=== PATIENT | female | born 1945 | race Caucasian/White ===

== ENCOUNTER 2019-04-06 15:33 | Outpatient (CLI) | payer OTHER, SELFPAY ==
--- NOTE | ~2019-04-06 | MR_ITS ---
EXAMINATION: MR brain/brain stem wo con DATE: 04/06/2019 17:11 INDICATION: Dizziness. TECHNIQUE: Magnetic resonance imaging (MRI) of the brain and brainstem was performed without intraven ous contrast. Sequences included sagittal and axial T1-weighted SE, axial diffusion-weighted FS SE, a xial T2*-weighted GRE, axial T2-weighted FLAIR Propeller, and axial T2-weighted Propeller. Apparent d iffusion coefficient (ADC) maps were created. COMPARISON: MR dated 06/05/[address] brain dated 09/10/2016. FINDINGS: Generalized atrophy. There are scattered mild periventricular and subcortical white matter changes, most likely related to small vessel ischemic disease (microangiopathy). Chronic small focal infarcts of the cerebellum bilaterally. No evidence for acute infarction or intracranial hemorrhage. Midline sagittal images are unremarkable. No ventriculomegaly or midline shift. Orbits are symmetric without disconjugate gaze. Paranasal sinuses are unremarkable. IMPRESSION: 1. No acute intracranial abnormality. 2: Focal chronic bilateral cerebellar infarctions. 3: Chronic age-related findings. Reviewed, dictated and finalized at location A. 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
== END 2019-04-06 15:34 | disposition home or self-care (01) ==
DX: R42 Dizziness and giddiness (principal); I63.89 Other cerebral infarction
CPT/HCPCS: 70551

== ENCOUNTER 2019-12-06 10:24 | Outpatient (CLI) | payer OTHER, SELFPAY ==
[2019-12-06 11:12] LABS: Basophils Absolute Auto 0.1 K/mm3 (0.0-0.1); Basophils Percent Auto 1.5 % (0.2-1.2); Eosinophils Absolute Auto 0.1 K/mm3 (0-0.3); Eosinophils Percent Auto 2.3 % (0-4.4); Hematocrit 38.6 % (37.0-47.0); Hemoglobin 12.3 g/dL (12.0-15.0); Immature Granulocyte Absolute 0.01 K/mm3 (0.00-0.031); Immature Granulocyte Percent A 0.2 % (0-0.5); Lymphocytes Absolute Auto 0.97 K/mm3 (0.9-3.2); Lymphocytes Percent Auto 18.5 % (18.3-44.2); Mean Corpuscular HGB Conc 31.9 g/dl (32-36); Mean Corpuscular Hemoglobin 32.1 pg (26-34); Mean Corpuscular Volume 100.8 fl (80-100); Mean Platelet Volume 12.2 fl (7.4-10.4); Monocytes Absolute Auto 0.5 K/mm3 (0.1-0.6); Monocytes Percent Auto 10.1 % (2.6-8.5); Neutrophils Absolute Auto 3.5 K/mm3 (1.3-6.7); Neutrophils Percent Auto 67.4 % (45.5-73.1); Platelet Count Result 259 k/mm3 (150-375); Red Blood Count 3.83 M/mm3 (4.2-5.4); Red Cell Distribution Width 12.9 % (11.5-14.5); White Blood Count 5.3 K/mm3 (4.5-10.0)
[2019-12-06 11:23] LABS: INR 1.8; Prothrombin Time 20.4 Seconds (11.1-14.7)
[2019-12-06 11:24] LABS: Add Urine Microscopic? YES; Appearance Urine Clear (Clear); Bilirubin Urine Negative (Negative); Blood Urine Negative (Negative); Color Urine Straw (Yellow); Glucose Urine UA Negative (Negative); Ketones Urine Negative (Negative); Leukocyte Esterase Ur 2+ LEU/UL (NEGATIVE); Mucus Urine Rare /lpf; Nitrate Urine Negative (Negative); Partial Thromboplastin Time 46.8 SECONDS (22.3-36.8); Protein Urine Negative (Negative); RBC Urine 0-2 /hpf (0-2); Squamous Epithelial Cell Urine Occasional /hpf (Few); Transitional Epi Cells Urine Rare /hpf (None Seen); Urobilinogen Urine Negative mg/dL (<2.0)
[2019-12-06 11:31] LABS: Alanine Aminotransferase 21 U/L (4-35); Albumin Level 4.2 g/dL (3.5-5.1); Alkaline Phosphatase 80 U/L (38-126); Anion Gap 5 mmol/L (8-16); Aspartate Amino Transferase 33 U/L (14-36); Bilirubin,Total 0.3 mg/dL (0.2-1.3); Blood Urea Nitrogen 33 mg/dL (7-17); Calcium 11.1 mg/dL (8.4-10.2); Carbon Dioxide 37 mmol/L (22-30); Chloride 100 mmol/L (98-107); Cholesterol 245 mg/dL (0-200); Estimated Glomerular Filt Rate 31; Glucose 134 mg/dL (65-105); HDL Direct 84 mg/dL; Magnesium 2.5 mg/dL (1.6-2.3); Potassium 4.8 mmol/L (3.4-5.0); Sodium 142 mmol/L (137-145); Triglycerides 144 mg/dL (<150)
[2019-12-06 11:32] LABS: Hemoglobin A1C 6.3 % (<5.7)
[2019-12-06 11:43] LABS: LDL Cholesterol Direct 104 mg/dL
[2019-12-09 23:03] LABS: Vitamin D 1,25 (OH)2 Total 28 pg/mL (18-72); Vitamin D2 1,25 (OH)2 <8 pg/mL; Vitamin D3 1,25 (OH)2 28 pg/mL
== END 2019-12-06 10:25 | disposition home or self-care (01) ==
LOC: ANHLAB 10:28
DX: I11.0 Hypertensive heart disease with heart failure (principal); E78.5 Hyperlipidemia, unspecified; E11.69 Type 2 diabetes mellitus with other specified complication; E55.9 Vitamin D deficiency, unspecified; Z79.01 Long term (current) use of anticoagulants; N28.9 Disorder of kidney and ureter, unspecified
CPT/HCPCS: 36415; 80053; 80061; 81001; 82652; 83036; 83735; 84443; 85025; 85610; 85730

== ENCOUNTER 2019-12-26 12:53 | Outpatient (CLI) | payer OTHER, SELFPAY | END 2019-12-26 12:54 | disposition home or self-care (01) | LOC: ANHAUDIO 12:54 | DX: H90.3 Sensorineural hearing loss, bilateral (principal) | CPT/HCPCS: 92557; 92567 ==

== ENCOUNTER 2020-01-12 10:25 | Outpatient (CLI) | payer OTHER, SELFPAY ==
--- NOTE | ~2020-01-12 | XR_ITS ---
EXAMINATION: XR chest 2V EXAM DATE: 01/12/2020 11:25 INDICATION: Dyspnea x 1 month . TECHNIQUE: Frontal and lateral projections of the chest obtained and reviewed. Comparison is made to prior examination from 01/09/2019. FINDINGS: Sternotomy wires are present without findings to suggest sternal dehiscence. The lungs are clear. There are no pleural effusions. The cardiomediastinal silhouette is within normal limits. C ardiac valve replacement. There is no pneumothorax suspected. There are mild bony degenerative yan es. There is aortic arteriosclerosis. There is moderate to severe anterior wedging of a single mid t horacic vertebral body, unchanged. IMPRESSION: No acute cardiopulmonary findings. Reviewed, dictated and finalized at location B. 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
== END 2020-01-12 10:26 | disposition home or self-care (01) ==
PROVIDERS: Visit Provider Internal Medicine Cardiovascular Disease
DX: Z91.89 Other specified personal risk factors, not elsewhere classified (principal); Z79.899 Other long term (current) drug therapy
CPT/HCPCS: 36415; 71046; 84443

== ENCOUNTER 2020-01-27 11:55 | Outpatient (CLI) | payer OTHER, SELFPAY ==
[2020-01-27 12:42] LABS: INR 2.2
== END 2020-01-27 11:56 | disposition home or self-care (01) ==
LOC: ANHLAB 11:59
DX: Z79.01 Long term (current) use of anticoagulants (principal)
CPT/HCPCS: 36415; 85610

== ENCOUNTER 2020-02-17 14:44 | Outpatient (CLI) | payer OTHER, SELFPAY ==
--- NOTE | 2020-02-24 12:34 | WPDPFTINT ---
PFT Interpretation PFT Interpretation: This PFT met all criteria for ATS standards and reproducibility FEV/FVC 70% FEV1 81% FVC 81% No bronchodilator challenge was given TLC 136% RV 216% RV/TLC 66% DLCO 69% when adjusted for alveolar volume but not adjusted for hemoglobin Flow volume loops showed some expiratory coving Impression: Mild airflow obstruction with hyperinflation, air trapping and mildly decreased diffusion capacity. This pattern is suggestive of COPD. Clinical correlation is advised.
== END 2020-02-17 14:45 | disposition home or self-care (01) ==
PROVIDERS: Visit Provider Internal Medicine Cardiovascular Disease
DX: R06.00 Dyspnea, unspecified (principal); Z91.89 Other specified personal risk factors, not elsewhere classified; Z79.899 Other long term (current) drug therapy
CPT/HCPCS: 94375; 94726; 94729

== ENCOUNTER 2020-02-27 14:52 | Outpatient (CLI) | payer OTHER, SELFPAY ==
--- NOTE | ~2020-02-27 | XR_ITS ---
[[id number] ] INDICATION: Right rib pain TECHNIQUE: Frontal projection of the upper right ribs, frontal projection of the lower right ribs, ob lique projection of all the right ribs, frontal inspiratory chest x-ray for interpretation. FINDINGS: There are no displaced rib fractures identified. There are no soft tissue abnormality see n. The lungs are clear. Status post median sternotomy. There is a prosthetic heart valve. IMPRESSION: 1:No displaced rib fractures. Reviewed, dictated and finalized at location A. 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
--- NOTE | ~2020-02-27 | XR_ITS ---
XR lumbar spine 2-3V 02/27/2020 15:59 Indication: Low back pain. Recent fall. Procedure: 2 views lumbar spine Comparison: 05/05/2008 Findings: No acute fracture or traumatic malalignment. Moderate multilevel facet hypertrophy. There i s mild disc narrowing at all lumbar levels. There is atherosclerosis. No evidence for spondylolisthes is. Mild dextrocurvature of the lumbar spine centered at L3. Impression: 1: Moderate lumbar spondylosis with dextrocurvature of the lumbar spine. Reviewed, dictated and finalized at location A. 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
--- NOTE | ~2020-02-27 | XR_ITS ---
XR thoracic spine 3V 02/27/2020 15:59 Indication: Upper back pain. Procedure: 3 views of the thoracic spine Comparison: 01/27/2017 and chest x-ray dated 01/12/2020 Findings: There is a chronic burst fracture of T6. There is mild-moderate thoracic spondylosis otherw ise. There is atherosclerosis of the aorta. No paraspinal soft tissue abnormality. There are median s ternotomy wires. Impression: 1: Chronic burst fracture of T6. 2: Mild-moderate thoracic spondylosis. Reviewed, dictated and finalized at location A. IDE MACHINIST Impression: 1: Chronic burst fracture of T6. 2: Mild-moderate thoracic spondylosis.
[2020-02-27 15:46] LABS: INR 1.9; Prothrombin Time 22.6 Seconds (11.1-14.7)
== END 2020-02-27 14:53 | disposition home or self-care (01) ==
LOC: ANHLAB 14:55
DX: Z79.01 Long term (current) use of anticoagulants (principal); M47.894 Other spondylosis, thoracic region; S22.051A Stable burst fracture of T5-T6 vertebra, initial encounter for closed fracture; X58.XXXA Exposure to other specified factors, initial encounter; M47.896 Other spondylosis, lumbar region
CPT/HCPCS: 36415; 71101; 72072; 72100; 85610

== ENCOUNTER 2020-08-07 17:06 | Emergency (ER) | payer OTHER, SELFPAY ==
[2020-08-07] VITALS (28 sets, daily range): BP systolic 138–197; BP diastolic 61–98; PULSE 58–75; RESP 11–24; O2SAT 93–100
--- NOTE | ~2020-08-07 | XR_ITS ---
XR chest 1V portable DATE: 08/07/2020 17:25 INDICATION: Shortness of breath, weakness. Hypertension. History of atrial fibrillation. TECHNIQUE: Portable AP chest on 08/07/2020 at 1725 hours COMPARISON: 01/12/2020 PA and lateral chest FINDINGS: Status post sternotomy and aortic valve replacement. Cardiomegaly. Aortic calcification. Mild infiltrate or atelectasis is suggested in the lower lung zones. The lungs otherwise appear clear . No pleural effusion or pulmonary vascular congestion or pneumothorax. Diffuse osteopenia. IMPRESSION: Suggestion of mild infiltrate or atelectasis at the lower lung zones Status post aortic valve replacement Cardiomegaly Aortic atherosclerosis Diffuse osteopenia Reviewed, dictated and finalized at location A. IMPRESSION: Suggestion of mild infiltrate or atelectasis at the lower lung zone s Status post aortic valve replacement Cardiomegaly Aortic atherosclerosis Diffuse osteopenia
--- NOTE | ~2020-08-07 | CT_ITS ---
EXAMINATION: CTA brain carotid EXAM DATE: 08/07/2020 18:14 INDICATION: Dizziness, memory loss, frontal headaches since Thursday. Generalized weakness. TECHNIQUE: Noncontrast head CT. Spiral CTA of the carotid arteries was performed with intravenous i njection 100 cc of Omnipaque 350. Axial, coronal, sagittal reformatted images reviewed. Additional r eformatted images created on dedicated 3-D workstation. NASCET comparable standard used to assess th e degree of arterial stenosis. Spiral CT angiogram cerebral arteries performed with the same intrave nous injection of contrast. Source images of the brain CTA transferred to dedicated workstation for 3 -D rotational image creation. Coronal, sagittal maximum intensity pixel images also reviewed. The d ose-length product (DLP) for this examination was 1420.70 mGy-cm. The exposure was tailored accordi ng to patient size, and iterative reconstruction (ASIR) was used as additional dose reduction techniq ue. Noncontrast head CT 09/10/2016 for comparison. FINDINGS: There is a 4 x 5 mm aneurysm at the right MCA trifurcation. 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 There is mild scattered bilateral common carotid arterial sclerosis. Mild to moderate bilateral carotid bulb plaque with right carotid bulb 20% stenosis, left carotid bulb 25% stenosis. T here is some kinking of the right proximal internal carotid artery. The vertebral arteries are codomi nant. There is left-sided posterior communicating artery dominant posterior cerebral artery. There is no carotid or vertebral basilar arterial dissection or fibromuscular dysplasia. There is symmetr ic cerebral artery arborization. The sagittal, transverse and sigmoid sinuses enhance normally, no ve nous sinus thrombosis. Internal cerebral veins also enhance normally. There is no acute intraparenchymal hemorrhage. No evidence of intraparenchymal brain mass lesion. N o evidence of acute infarction. There is mild to moderate periventricular and subcortical hypodensity , nonspecific but probably related to small vessel ischemic disease. There is mild to moderate prom inence of the sulci and ventricles related to cerebral atrophy. There is no mass effect or midline shift. There is no obstructive hydrocephalus suspected. There are no extra-axial collections. Ther e are no areas of abnormal enhancement on the post contrast images. Incidental Findings: Sternotomy wires. Moderate cervical spondylosis overall. IMPRESSION: 1. No acute carotid or intracranial findings. 2. 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 3. Carotid plaque with right carotid bulb 20% stenosis, left carotid bulb 25% stenosis. Reviewed, dictated and finalized at location B.
--- NOTE | ~2020-08-07 | CT_ITS ---
EXAMINATION: CT brain wo con DATE: 08/08/2020 09:19 INDICATION: Dizziness. Persistent headaches. TECHNIQUE: Computed tomography (CT) of the head was performed without intravenous contrast. Sagittal and coronal reconstructions were performed. The mA was adjusted according to patient size. Iterative reconstruction technique was employed. The dose-length product was 605.33 mGy-cm. COMPARISON: head CT dated 08/07/2020 FINDINGS: No acute intracranial hemorrhage, acute infarction or abnormal extra axial fluid collection. There is mild to moderate scattered white matter hypoattenuation consistent with chronic small vessel ischemi c disease. Ventricles are normal and symmetric. No mass/mass effect. Changes of bilateral intraocula r lens replacement. The orbits, paranasal sinuses and mastoid air cells are normal. IMPRESSION: 1. Unchanged mild to moderate scattered white matter hypoattenuation consistent with chronic small ve ssel ischemic disease. No acute intracranial process. Reviewed, dictated and finalized at location A. IMPRESSION: 1. Unchanged mild to moderate scattered white matter hypoattenuation consistent with chronic small vessel ischemic disease. No acute intracranial process.
--- NOTE | 2020-08-07 17:09 | ECG_ITS ---
Measurements Intervals [place] Rate: 58 P: -40 [place]: 186 QRS: -30 QRSD: 148 T: 107 QT: 454 QTc: 448 Interpretive Statements SINUS BRADYCARDIA LEFT BUNDLE BRANCH BLOCK INFERIOR INFARCT OR DUE TO LBBB BASELINE ARTIFACT- I, II, AVR ABNORMAL ECG Electronically Signed On 08-07-2020 19:21:54 CDT by Emil Farrell D.O.
[2020-08-07 17:28] LABS: Basophils Absolute Auto 0.1 K/mm3 (0.0-0.1); Basophils Percent Auto 1.2 % (0.2-1.2); Eosinophils Absolute Auto 0.1 K/mm3 (0-0.3); Eosinophils Percent Auto 2.7 % (0-4.4); Hematocrit 39.9 % (37.0-47.0); Hemoglobin 12.7 g/dL (12.0-15.0); Immature Granulocyte Absolute 0.02 K/mm3 (0.00-0.031); Immature Granulocyte Percent A 0.4 % (0-0.5); Lymphocytes Absolute Auto 1.42 K/mm3 (0.9-3.2); Lymphocytes Percent Auto 27.4 % (18.3-44.2); Mean Corpuscular HGB Conc 31.8 g/dl (32-36); Mean Corpuscular Hemoglobin 32.7 pg (26-34); Mean Corpuscular Volume 102.8 fl (80-100); Monocytes Absolute Auto 0.6 K/mm3 (0.1-0.6); Monocytes Percent Auto 12.4 % (2.6-8.5); Neutrophils Absolute Auto 2.9 K/mm3 (1.3-6.7); Neutrophils Percent Auto 55.9 % (45.5-73.1); Platelet Count Result 237 k/mm3 (150-375); Red Blood Count 3.88 M/mm3 (4.2-5.4); Red Cell Distribution Width 12.3 % (11.5-14.5); White Blood Count 5.2 K/mm3 (4.5-10.0)
[2020-08-07 17:37] LABS: Anion Gap 5 mmol/L (8-16); Blood Urea Nitrogen 24 mg/dL (7-17); Calcium 10.8 mg/dL (8.4-10.2); Carbon Dioxide 30 mmol/L (22-30); Chloride 103 mmol/L (98-107); Estimated CRCL calculation 40 ml/min; Estimated Glomerular Filt Rate 44; Glucose 133 mg/dL (65-105); Potassium 4.4 mmol/L (3.4-5.0); Sodium 138 mmol/L (137-145)
--- NOTE | 2020-08-07 17:40 | ED.SOB ---
HPI - SOB/Dyspnea General Chief Complaint: Weakness <Darshan Bradshaw PA-C - Last Filed: 08/08/20 22:19> Stated Complaint: possible stroke x 3 days <JSOI Holland Last Filed: 08/08/20 22:19> Time Seen by Provider: 08/07/20 17:08 <JOSI Holland Last Filed: 08/08/20 22:19> Source: patient and RN notes reviewed <JOSI Holland Last Filed: 08/08/20 22:19> Mode of arrival: ambulatory <JOSI Holland Last Filed: 08/08/20 22:19> Limitations: no limitations <JOSI Holland Last Filed: 08/08/20 22:19> History of Present Illness HPI Narrative: Patient is a 75-year-old female who presents to emergency department for evaluation of dizziness unsteady gait and fatigue began acutely 3 days ago patient felt near syncopal had to sit down but since had frontal headache denies injury or trauma or recent illness or similar occurrence in the past. Patient lives at home by herself. Patient notes today she finally felt well enough to leave the house to seek help and was having blood work performed today and then came to the emergency department due to dizziness headache and unsteady gait. Patient notes she is currently on warfarin for heart valve replacement which was done in 2003 <JOSI Holland Last Filed: 08/08/20 22:19> Related Data Home Medications: Home Medications Medication Instructions Recorded Confirmed albuterol sulfate 2 puff INHALATION QID PRN 01/09/19 01/09/19 atorvastatin 10 mg PO HS 01/09/19 01/09/19 ferrous sulfate 325 mg PO DAILY 01/09/19 01/09/19 fluticasone propionate [Flonase 2 spray INTRANASAL DAILY 01/09/19 01/09/19 Allergy Relief] gabapentin 300 mg PO BID 01/09/19 01/09/19 hydrocodone-acetaminophen 2 tablet PO Q8H PRN 01/09/19 01/09/19 lisinopril 2.5 mg PO DAILY 01/09/19 01/09/19 omeprazole 20 mg PO DAILY 01/09/19 01/09/19 venlafaxine 150 mg PO DAILY 01/09/19 01/09/19 amiodarone 100 mg PO DAILY 08/08/20 warfarin 2 mg PO DAILY 08/08/20 warfarin 5 mg PO DAILY 08/08/20 <Darshan Bradshaw PA-C - Last Filed: 08/08/20 22:19> Allergies/Adverse Reactions: Allergies Allergy/AdvReac Type Severity Reaction Status Date / Time adhesive tape Allergy Intermediate Blister Verified 08/08/20 12:44 bacitracin Allergy Mild Rash Verified 08/08/20 12:44 neomycin Allergy Mild Rash Verified 08/08/20 12:44 polymyxin B Allergy Mild Rash Verified 08/08/20 12:44 cortisone Allergy Unknown Unknown Verified 08/08/20 12:44 <Darshan Bradshaw PA-C - Last Filed: 08/08/20 22:19> Review of Systems Review of Systems: All systems reviewed & are unremarkable except as noted in HPI and below <Darshan Bradshaw PA-C - Last Filed: 08/08/20 22:19> [facility] Past Medical History Medical History: Medical History Afib Ankle fracture, left Diabetes Herniated disc HTN (hypertension) <Drashan Bradshaw PA-C - Last Filed: 08/08/20 22:19> Surgical History Surgical History: Surgical History History of ankle surgery lt ankle History of hysterectomy Mechanical heart valve present <Darshan Bradshaw PA-C - Last Filed: 08/08/20 22:19> Family History Family History: Family History Mother Depression Family history of coronary artery disease Father Family history of diabetes mellitus in first degree relative Other Diabetes mellitus Family history of arthritis Family history of cardiovascular disease <Darshan Bradshaw PA-C - Last Filed: 08/08/20 22:19> Social History Social History: Social History Social History: she lives in her own home. She has a small dog. she ambulates without assistance. She is . Code status is full code. Smoking status: Never smoker Second hand to
[2020-08-07 17:43] LABS: INR 1.2; Prothrombin Time 15.8 Seconds (11.1-14.7)
[2020-08-07 17:44] LABS: Partial Thromboplastin Time 36.2 SECONDS (22.3-36.8)
[2020-08-07 17:52] LABS: Troponin I 0.036 ng/mL (0.000-0.034)
[2020-08-07] MEDS: SODIUM CHLORIDE 0.9% IV 500 ML 999 ML IV CONT (18:30)
[2020-08-07 18:52] LABS: Add Urine Microscopic? NO; Appearance Urine Clear (Clear); Bilirubin Urine Negative (Negative); Blood Urine Negative (Negative); Color Urine Straw (Yellow); Glucose Urine UA Negative (Negative); Ketones Urine Negative (Negative); Leukocyte Esterase Ur Negative LEU/UL (Negative); Nitrate Urine Negative (Negative); Protein Urine Negative (Negative); Urobilinogen Urine Negative mg/dL (<2.0)
[2020-08-07 18:54] LABS: Specific Grav Ur 1.058 (1.001-1.035)
[2020-08-07 22:13] LABS: Troponin I 0.038 ng/mL (0.000-0.034)
[2020-08-07] MEDS: MORPHINE SULFATE (*CRX) 4 MG/ML INJ IV PUSH (22:53)
[2020-08-07] MEDS: ONDANSETRON INJ 4 MG/2 ML VIAL IV PUSH (22:53)
--- NOTE | 2020-08-07 22:54 | PC.NURSE ---
Spoke with the [facility]. There are NO neuro beds available at this time. Possibly in the morning after discharges.
[2020-08-08] VITALS (66 sets, daily range): BP systolic 90–166; BP diastolic 49–96; PULSE 57–87; RESP 11–30; TEMP 36.4–36.6; O2SAT 83–99
--- NOTE | 2020-08-08 01:37 | PC.NURSE ---
Pt provided with a hospital bed as it could be many more hours before transfer.
[2020-08-08 02:51] LABS: Troponin I 0.086 ng/mL (0.000-0.034)
[2020-08-08] MEDS: ONDANSETRON INJ 4 MG/2 ML VIAL IV PUSH (08:36)
[2020-08-08] MEDS: MORPHINE SULFATE (*CRX) 2 MG/ML INJ IV PUSH (08:36)
--- NOTE | 2020-08-08 08:57 | ECG_ITS ---
Measurements Intervals [place] Rate: 65 P: -30 [place]: 194 QRS: -35 QRSD: 147 T: 142 QT: 475 QTc: 494 Interpretive Statements SINUS RHYTHM LEFT AXIS DEVIATION LEFT BUNDLE BRANCH BLOCK INFERIOR INFARCT OR DUE TO LBBB BASELINE ARTIFACT- I, II, AVR, AVL, AVF ABNORMAL ECG Electronically Signed On 08-08-2020 11:58:51 CDT by Emil Farrell D.O.
[2020-08-08] MEDS: SODIUM CHLORIDE 0.9% IV 500 ML 999 ML IV CONT (09:50)
[2020-08-08 10:25] LABS: Basophils Absolute Auto 0.1 K/mm3 (0.0-0.1); Basophils Percent Auto 1.6 % (0.2-1.2); Eosinophils Absolute Auto 0.1 K/mm3 (0-0.3); Eosinophils Percent Auto 2.2 % (0-4.4); Hematocrit 40.7 % (37.0-47.0); Hemoglobin 12.9 g/dL (12.0-15.0); Immature Granulocyte Absolute 0.01 K/mm3 (0.00-0.031); Immature Granulocyte Percent A 0.2 % (0-0.5); Lymphocytes Absolute Auto 0.91 K/mm3 (0.9-3.2); Lymphocytes Percent Auto 20.3 % (18.3-44.2); Mean Corpuscular HGB Conc 31.7 g/dl (32-36); Mean Corpuscular Hemoglobin 32.9 pg (26-34); Mean Corpuscular Volume 103.8 fl (80-100); Mean Platelet Volume 12.3 fl (7.4-10.4); Monocytes Absolute Auto 0.5 K/mm3 (0.1-0.6); Monocytes Percent Auto 11.6 % (2.6-8.5); Neutrophils Absolute Auto 2.9 K/mm3 (1.3-6.7); Neutrophils Percent Auto 64.1 % (45.5-73.1); Platelet Count Result 222 k/mm3 (150-375); Red Blood Count 3.92 M/mm3 (4.2-5.4); Red Cell Distribution Width 12.5 % (11.5-14.5); White Blood Count 4.5 K/mm3 (4.5-10.0)
[2020-08-08 10:34] LABS: Anion Gap 3 mmol/L (8-16); Blood Urea Nitrogen 19 mg/dL (7-17); Calcium 10.8 mg/dL (8.4-10.2); Carbon Dioxide 31 mmol/L (22-30); Chloride 107 mmol/L (98-107); Estimated CRCL calculation 44 ml/min; Estimated Glomerular Filt Rate 48; Glucose 117 mg/dL (65-105); Potassium 4.9 mmol/L (3.4-5.0); Sodium 141 mmol/L (137-145)
[2020-08-08 10:38] LABS: INR 1.3; Prothrombin Time 16.3 Seconds (11.1-14.7)
[2020-08-08] MEDS: LORazepam INJ (*CRX) 2 MG/ML VIAL 0.5 MG IV PUSH (10:57)
--- NOTE | 2020-08-08 12:34 | PC.NURSE ---
Margarita from [facility] placement called to verify bed need, current VS given.
--- NOTE | 2020-08-08 19:56 | ECG_ITS ---
Measurements Intervals [place] Rate: 56 P: -40 [place]: 196 QRS: -50 QRSD: 149 T: 160 QT: 494 QTc: 479 Interpretive Statements SINUS BRADYCARDIA LEFT AXIS DEVIATION LEFT BUNDLE BRANCH BLOCK ANTEROSEPTAL INFARCT OR DUE TO LBBB INFERIOR INFARCT OR DUE TO LBBB BASELINE ARTIFACT- I, II, III, AVR, AVL, AVF ABNORMAL ECG Electronically Signed On 08-08-2020 21:56:02 CDT by Emil Farrell D.O.
[2020-08-08 20:40] LABS: Troponin I 0.057 ng/mL (0.000-0.034)
--- NOTE | 2020-08-08 23:22 | PC.NURSE ---
Patient accepted by [facility] - [facility], Room 4108, [place], [place]. Spoke with [place] at [place] and cancelled transfer request.
--- NOTE | 2020-08-08 23:24 | PC.NURSE ---
Called [facility] for transport to [facility], Rm 4105....ETA 01:00
--- NOTE | 2020-08-09 01:03 | PC.NURSE ---
Called [facility] for status....ETA 02:30
[2020-08-09 01:32] VITALS: BP 141/63; PULSE 71; RESP 16; TEMP 36.6; O2SAT 97
[2020-08-09] MEDS: MORPHINE SULFATE (*CRX) 2 MG/ML INJ IV PUSH (02:36)
[2020-08-09 02:37] VITALS: BP 146/72; PULSE 70; RESP 13; O2SAT 97
== END 2020-08-09 02:45 | disposition short-term general hospital (02) ==
PROVIDERS: Emergency Medicine Emergency Medical Services; Emergency Provider Emergency Medicine
DX: R42 Dizziness and giddiness (principal); I67.1 Cerebral aneurysm, nonruptured; R79.89 Other specified abnormal findings of blood chemistry; R00.1 Bradycardia, unspecified; I44.7 Left bundle-branch block, unspecified; E11.9 Type 2 diabetes mellitus without complications; I10 Essential (primary) hypertension; Z79.01 Long term (current) use of anticoagulants
CPT/HCPCS: 36415; 51701; 70450; 70496; 70498; 71045; 80048; 81003; 84484; 85025; 85610; 85730; 93005; 96361; 96365; 96375; 96376; 99285; J0131; J2060; J2270; J2405; J7040; Q9967

== ENCOUNTER 2020-08-30 12:43 | Outpatient (CLI) | payer OTHER, SELFPAY ==
--- NOTE | ~2020-08-30 | XR_ITS ---
[id number] 08/30/2020 13:39 Indication: Neck pain Procedure: 3 views cervical spine Comparison: 03/15/2016 Findings: Straightening of cervical lordosis there is degenerative disc disease at C5-6 and C6-7. The re is degenerative anterolisthesis at C3-4. There is multilevel uncinate and facet hypertrophy. Odont oid process within normal limits. There is multilevel uncinate and facet hypertrophy. There are media n sternotomy wires partially visualized. Lung apices are unremarkable. Impression: 1: Moderate cervical spondylosis. Reviewed, dictated and finalized at location B. Impression: 1: Moderate cervical spondylosis.
== END 2020-08-30 12:44 | disposition home or self-care (01) ==
LOC: ANHIMG 12:51
PROVIDERS: PCP Nurse Practitioner; Visit Provider Nurse Practitioner
DX: M47.892 Other spondylosis, cervical region (principal)
CPT/HCPCS: 72040

== ENCOUNTER 2020-09-05 10:08 | Emergency (ER) | payer OTHER, SELFPAY ==
[2020-09-05] VITALS (22 sets, daily range): BP systolic 123–175; BP diastolic 58–111; PULSE 55–65; RESP 10–19; TEMP 36.6; O2SAT 93–100
--- NOTE | ~2020-09-05 | CT_ITS ---
EXAMINATION: CT brain wo con INDICATION: Head injury COMPARISON: 08/08/2020 TECHNIQUE: Standard unenhanced head CT. The dose-length product (DLP) was 605.33 mGy-cm. The mA was a djusted according to patient size. Iterative reconstruction technique was employed. FINDINGS: There is no acute intraparenchymal hemorrhage. No evidence of mass lesion. No evidence of a cute infarction. There is mild to moderate periventricular and subcortical hypodensity probably relat ed to small vessel ischemic disease. There is mild prominence of the sulci and ventricles related to cerebral atrophy. Intracranial calcified cerebral atherosclerosis is noted. There are no extra-axial collections. There is no mass effect or midline shift. Changes in the globes are likely from ocular l ens surgery. The visualized sinuses and mastoid air cells are well aerated. IMPRESSION: 1. No acute intracranial abnormality. 2. Age related findings. Reviewed, dictated and finalized at location B.
--- NOTE | ~2020-09-05 | CT_ITS ---
EXAMINATION: CT lumbar spine wo con DATE: 09/05/2020 11:05 INDICATION: Low back pain TECHNIQUE: Computed tomography (CT) of the lumbar spine was performed without intravenous contrast. T he dose-length product (DLP) was 1163.95 mGy-cm. Iterative reconstruction was used. COMPARISON: None FINDINGS: Bone alignment is normal. There is no fracture. The vertebral body heights are maintained. There is mild loss of intervertebral disc space height at L2-3. Moderate loss of intervertebral disc space height is noted in the lower thoracic spine. There is mild facet osteoarthritis of the lower brannon mbar spine. There is calcified atherosclerosis of the aorta and many of the other arteries. The parav ertebral soft tissues are normal. IMPRESSION: 1. Mild lumbar spondylosis without acute findings. Reviewed, dictated and finalized at location B.
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
--- NOTE | ~2020-09-05 | CT_ITS ---
EXAMINATION: CT thoracic spine wo con DATE: 09/05/2020 11:52 INDICATION: Thoracic back pain. TECHNIQUE: Computed tomography (CT) of the thoracic spine was performed without intravenous contrast. Automated exposure control and iterative reconstruction technique were employed. The dose-length pro duct was 1105.29 mGy-cm. COMPARISON: Chest CT 10/13/2017 FINDINGS: There is 5 mm degrees dextrocurvature of thoracic spine. There is a chronic burst fracture of T6 with greater than 4/5 loss of height. There is a benign bone island in T5 vertebral body. There is mildly decreased disc height at T11-T12 and T12-L1. There is mild central canal stenosis at T12-L 1. There is multilevel facet joint osteoarthritis, severe on the right at T5-T6. There is mild right neural foraminal stenosis at T5-T6 and T6-T7 and moderate left neural foraminal stenosis at T6-T7. IMPRESSION: 1. Mild thoracic spondylosis. Reviewed, dictated and finalized at location A.
--- NOTE | 2020-09-05 10:37 | ECG_ITS ---
Measurements Intervals [place] Rate: 57 P: -44 [place]: 199 QRS: -34 QRSD: 148 T: 111 QT: 445 QTc: 437 Interpretive Statements SINUS OR ECTOPIC ATRIAL BRADYCARDIA LEFT AXIS DEVIATION LEFT BUNDLE BRANCH BLOCK INFERIOR INFARCT OR DUE TO LBBB ABNORMAL ECG Electronically Signed On 09-05-2020 12:09:42 CDT by Emil Farrell D.O.
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
--- NOTE | 2020-09-05 10:47 | PC.NURSE ---
Pt. to CT
[2020-09-05 11:14] LABS: Basophils Absolute Auto 0.1 K/mm3 (0.0-0.1); Basophils Percent Auto 1.1 % (0.2-1.2); Eosinophils Absolute Auto 0.2 K/mm3 (0-0.3); Eosinophils Percent Auto 2.9 % (0-4.4); Hematocrit 38.1 % (37.0-47.0); Hemoglobin 12.1 g/dL (12.0-15.0); Immature Granulocyte Absolute 0.01 K/mm3 (0.00-0.031); Immature Granulocyte Percent A 0.2 % (0-0.5); Lymphocytes Absolute Auto 1.03 K/mm3 (0.9-3.2); Lymphocytes Percent Auto 18.7 % (18.3-44.2); Mean Corpuscular HGB Conc 31.8 g/dl (32-36); Mean Corpuscular Hemoglobin 32.2 pg (26-34); Mean Corpuscular Volume 101.3 fl (80-100); Mean Platelet Volume 12.1 fl (7.4-10.4); Monocytes Absolute Auto 0.7 K/mm3 (0.1-0.6); Neutrophils Absolute Auto 3.5 K/mm3 (1.3-6.7); Neutrophils Percent Auto 64.1 % (45.5-73.1); Platelet Count Result 218 k/mm3 (150-375); Red Blood Count 3.76 M/mm3 (4.2-5.4); Red Cell Distribution Width 12.8 % (11.5-14.5); White Blood Count 5.5 K/mm3 (4.5-10.0)
[2020-09-05 11:26] LABS: INR 1.8; Prothrombin Time 21.3 Seconds (11.1-14.7)
[2020-09-05 11:27] LABS: Partial Thromboplastin Time 43.8 SECONDS (22.3-36.8)
[2020-09-05 11:52] LABS: Alanine Aminotransferase 17 U/L (4-35); Albumin Level 3.9 g/dL (3.5-5.1); Alkaline Phosphatase 77 U/L (38-126); Anion Gap 4 mmol/L (8-16); Aspartate Amino Transferase 28 U/L (14-36); Bilirubin,Total 0.5 mg/dL (0.2-1.3); Blood Urea Nitrogen 26 mg/dL (7-17); Calcium 10.7 mg/dL (8.4-10.2); Carbon Dioxide 30 mmol/L (22-30); Chloride 105 mmol/L (98-107); Estimated CRCL calculation 33 ml/min; Estimated Glomerular Filt Rate 34; Glucose 127 mg/dL (65-105); Potassium 4.9 mmol/L (3.4-5.0); Sodium 139 mmol/L (137-145)
[2020-09-05] MEDS: TETANUS,DIPHTHERIA,AC PERTUSSIS ADULT (0.5 ML) BOOSTRIX IM (13:41)
== END 2020-09-05 13:55 | disposition home or self-care (01) ==
PROVIDERS: Emergency Provider Nurse Practitioner
DX: S51.812A Laceration without foreign body of left forearm, initial encounter (principal); M54.5 Low back pain; S13.4XXA Sprain of ligaments of cervical spine, initial encounter; I48.91 Unspecified atrial fibrillation; E11.9 Type 2 diabetes mellitus without complications; I10 Essential (primary) hypertension; Z79.01 Long term (current) use of anticoagulants; Z23 Encounter for immunization; V49.40XA Driver injured in collision with unspecified motor vehicles in traffic accident, initial encounter
CPT/HCPCS: 36415; 70450; 71046; 72125; 72128; 72131; 80053; 85025; 85610; 85730; 90471; 90715; 93005; 96374; 99284; J0131

== ENCOUNTER 2020-11-13 15:20 | Emergency (ER) | payer OTHER, SELFPAY ==
--- NOTE | ~2020-11-13 | CT_ITS ---
EXAMINATION: CT brain wo con, CT cervical spine wo con EXAM DATE: 11/13/2020 15:57 INDICATION: Fall, head injury. Headache. On blood thinners. TECHNIQUE: Spiral CT of the head was performed without contrast. Axial, coronal and sagittal images were reviewed. Spiral CT of the cervical spine was performed without contrast. Axial images were rev iewed. Coronal and sagittal reformatted images were also reviewed. The dose-length product (DLP) fo r this examination was 529.67 (accession [id number]), 437.32 (accession [id number]) mGy-cm. The exposure was tailored according to patient size, and iterative reconstruction (ASIR) was used as additional dose reduction technique. Comparison is made to prior examination from 09/05/2020. FINDINGS: HEAD CT: There is no acute intraparenchymal hemorrhage. No evidence of intraparenchymal brain mass l esion. No evidence of acute infarction. There is mild to moderate periventricular and subcortical hy podensity, nonspecific but probably related to small vessel ischemic disease. There is mild to mode rate prominence of the sulci and ventricles related to cerebral atrophy. There is no mass effect o r midline shift. There is no obstructive hydrocephalus suspected. There are no extra-axial collectio ns. There are no acute calvarial fractures. The orbits are unremarkable. There is moderate size le ft-sided lateral scalp contusion, hematoma and probably laceration given small foci of subcutaneous g as. The visualized sinuses and mastoid air cells are well aerated. CERVICAL CT: There is no evidence of acute cervical fracture. The odontoid process is intact. Pre-d ens space is normal. Prevertebral soft tissue is normal. There are no soft tissue abnormalities jaden ntified. There is no disc space widening or traumatic vertebral body subluxation suspected. There i s moderate cervical spondylosis. A detailed level by level evaluation of spondylosis can be added as addendum if requested. IMPRESSION: 1. No acute intracranial findings or cervical fracture. 2. Left lateral scalp contusion, hematoma, laceration. 3. Chronic age-related intracranial findings. 4. Moderate cervical spondylosis. Reviewed, dictated and finalized at location A. IMPRESSION: 1. No acute intracranial findings or cervical fracture. 2. Left lateral scalp contusion, hematoma, laceration. 3. Chronic age-related intracranial findings. 4. Moderate cervical spondylosis.
--- NOTE | ~2020-11-13 | XR_ITS ---
EXAMINATION: XR elbow LT min 3V DATE: 11/13/2020 16:11 INDICATION: Left elbow pain TECHNIQUE: Anteroposterior, two oblique and lateral views of the left elbow were obtained. COMPARISON: 08/17/2008 FINDINGS: Chronic changes in the radial head likely reflect prior surgery. There is advanced osteoart hritis of the elbow. A calcified loose body is noted. There appears to be a joint effusion. No defini te fracture is identified. Soft tissue swelling is noted. IMPRESSION: 1. Elbow joint effusion which could reflect chronic osteoarthritis as no definite acute fracture is i dentified. Reviewed, dictated and finalized at location B. IMPRESSION: 1. Elbow joint effusion which could reflect chronic osteoarthritis as no defini te acute fracture is identified.
--- NOTE | ~2020-11-13 | XR_ITS ---
EXAMINATION: XR wrist RT min 3V INDICATION: Right wrist pain, initial encounter TECHNIQUE: Three views of the right wrist are obtained. COMPARISON: None available FINDINGS: There is an acute, traumatic, closed, comminuted, intra-articular fracture of the distal ra dius. There is wrist soft tissue swelling. No definite additional acute fracture is identified althou gh sensitivity is limited by osteopenia. There is advanced osteoarthritis of the triscaphe and first carpometacarpal joints. Calcified atherosclerosis is noted. IMPRESSION: 1. Comminuted intra-articular fracture of the distal radius. Reviewed, dictated and finalized at location B.
--- NOTE | ~2020-11-13 | XR_ITS ---
EXAMINATION: XR wrist RT 2V DATE: 11/14/2020 01:21 INDICATION: Distal right radius fracture status post reduction. TECHNIQUE: 2 views of right wrist were obtained. COMPARISON: Right wrist radiographs 11/13/2020 FINDINGS: There is a comminuted fracture of distal radius. The main distal fracture fragment demonstr ates impaction and dorsal angulation. There is 15 degrees dorsal tilt of the distal articular surface . Osteopenia is noted. There is widening of scapholunate joint. There is severe osteoarthritis of tri scaphe joint and first carpometacarpal joint. IMPRESSION: 1. Comminuted fracture of distal radius with improvement in alignment. 2. Scapholunate dissociation. 3. Polyarticular osteoarthritis. Reviewed, dictated and finalized at location A.
[2020-11-13 15:31] VITALS: BP 118/64; PULSE 84; RESP 14; TEMP 37.1; O2SAT 99
[2020-11-13 17:11] VITALS: BP 154/69; PULSE 75; RESP 16; TEMP 36.8; O2SAT 100
--- NOTE | 2020-11-13 17:23 | ED.GENADULT ---
HPI - General Adult General Chief complaint: Fall Stated complaint: fall, head injury, arm injury Time Seen by Provider: 11/13/20 15:47 Source: patient History of Present Illness HPI narrative: Patient is a 75 y/o female complaining of a fall prior to arrival. 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 She accidentally tripped over a brick and fell. She states that she struck her head on a brick and she also has some right wrist pain. She describes her headache as sharp. She rates her pain as 7/10. Wrist pain is worse with movement. She is on Coumadin for history of AVR and A fib. She states that she is up to date on Tetanus shot. Related Data Home Medications Medication Instructions Recorded Confirmed albuterol sulfate 2 puff INHALATION QID PRN 01/09/19 01/09/19 atorvastatin 10 mg PO HS 01/09/19 01/09/19 ferrous sulfate 325 mg PO DAILY 01/09/19 01/09/19 fluticasone propionate [Flonase 2 spray INTRANASAL DAILY 01/09/19 01/09/19 Allergy Relief] gabapentin 300 mg PO BID 01/09/19 01/09/19 hydrocodone-acetaminophen 2 tablet PO Q8H PRN 01/09/19 01/09/19 lisinopril 2.5 mg PO DAILY 01/09/19 01/09/19 omeprazole 20 mg PO DAILY 01/09/19 01/09/19 venlafaxine 150 mg PO DAILY 01/09/19 01/09/19 amiodarone 100 mg PO DAILY 08/08/20 warfarin 6 mg PO DAILY 08/08/20 Allergies Allergy/AdvReac Type Severity Reaction Status Date / Time adhesive tape Allergy Intermediate Blister Verified 11/13/20 17:18 bacitracin Allergy Mild Rash Verified 11/13/20 17:18 neomycin Allergy Mild Rash Verified 11/13/20 17:18 polymyxin B Allergy Mild Rash Verified 11/13/20 17:18 cortisone Allergy Unknown Unknown Verified 11/13/20 17:18 Review of Systems Constitutional: Constitutional: Denies chills, Denies fever(s), Reports headache(s) and Denies weakness Eyes: Eyes: Denies blurry vision ENT: Reports headache(s) and Denies neck pain Cardiovascular: Cardiovascular: Denies chest pain and Denies dyspnea Respiratory: Respiratory: Denies cough and Denies dyspnea Gastrointestinal: Gastrointestinal: Denies abdominal pain, Denies diarrhea, Denies nausea and Denies vomiting Genitourinary: Genitourinary: Denies hematuria and Denies dysuria Musculoskeletal: Musculoskeletal: Denies back pain, Denies neck pain and Reports other (right wrist pain) Neurologic: Reports headache(s) and Denies weakness PMFSH Past Medical History Medical History Afib Ankle fracture, left Diabetes Herniated disc HTN (hypertension) Surgical History Surgical History History of ankle surgery lt ankle History of hysterectomy Mechanical heart valve present Family History Family History Mother Depression Family history of coronary artery disease Father Family history of diabetes mellitus in first degree relative Other Diabetes mellitus Family history of arthritis Family history of cardiovascular disease Social History Social History Social History: she lives in her own home. She has a small dog. she ambulates without assistance. She is . Code status is full code. Smoking status: Never smoker Second hand tobacco smoke exposure: No Alcohol intake: never Substance use: never Gender identity (if verbalized by the patient): Female Spiritual care concerns: No Agree to blood products: Yes Exam Const: General: no acute distress and well developed Orientation/consciousness: oriented to person, oriented to place, oriented to time and patient oriented x3 HENMT: Head: normocephalic and hematoma left parietal Ears: external ears normal General nose exam: Normal external nose present Eyes: General: appearance normal, both eyes and all related structures Conjunctivae: conjunctivae normal Neck: Neck: normal visual
[2020-11-13] MEDS: HYDROcodone/acetaminophen (*CRX) 5-325 MG TABLET 1 TAB PO (17:49)
[2020-11-13 17:53] LABS: Basophils Absolute Auto 0.1 K/mm3 (0.0-0.1); Basophils Percent Auto 1.1 % (0.2-1.2); Eosinophils Absolute Auto 0.2 K/mm3 (0-0.3); Eosinophils Percent Auto 2.4 % (0-4.4); Hematocrit 34.3 % (37.0-47.0); Hemoglobin 11.1 g/dL (12.0-15.0); Immature Granulocyte Absolute 0.01 K/mm3 (0.00-0.031); Immature Granulocyte Percent A 0.1 % (0-0.5); Lymphocytes Absolute Auto 1.63 K/mm3 (0.9-3.2); Mean Corpuscular HGB Conc 32.4 g/dl (32-36); Mean Corpuscular Hemoglobin 33.2 pg (26-34); Mean Corpuscular Volume 102.7 fl (80-100); Mean Platelet Volume 12.7 fl (7.4-10.4); Monocytes Absolute Auto 0.9 K/mm3 (0.1-0.6); Monocytes Percent Auto 12.7 % (2.6-8.5); Neutrophils Absolute Auto 4.6 K/mm3 (1.3-6.7); Neutrophils Percent Auto 61.7 % (45.5-73.1); Platelet Count Result 186 k/mm3 (150-375); Red Blood Count 3.34 M/mm3 (4.2-5.4); Red Cell Distribution Width 12.8 % (11.5-14.5); White Blood Count 7.4 K/mm3 (4.5-10.0)
[2020-11-13 18:04] LABS: INR 3.9; Prothrombin Time 37.2 Seconds (11.1-14.7)
[2020-11-13 18:05] LABS: Partial Thromboplastin Time 63.5 SECONDS (22.3-36.8)
[2020-11-13 18:10] LABS: Anion Gap 4 mmol/L (8-16); Blood Urea Nitrogen 44 mg/dL (7-17); Carbon Dioxide 26 mmol/L (22-30); Chloride 103 mmol/L (98-107); Estimated CRCL calculation 25 ml/min; Estimated Glomerular Filt Rate 26; Glucose 123 mg/dL (65-110); Sodium 133 mmol/L (137-145)
[2020-11-13] MEDS: fentaNYL CITRATE INJ (*CRX) 100 MCG/2 ML VIAL 50 MCG IV PUSH ×2 (22:01→23:45)
[2020-11-13 22:30] VITALS: BP 156/78; PULSE 100; RESP 18; O2SAT 100
[2020-11-13 23:31] VITALS: BP 136/58; PULSE 67; RESP 14; O2SAT 99
[2020-11-14] VITALS (26 sets, daily range): BP systolic 95–170; BP diastolic 49–89; PULSE 56–74; RESP 12–20; TEMP 36.4–36.9; O2SAT 91–100
--- NOTE | 2020-11-14 00:35 | PC.NURSE ---
ERP notified of STOP BANG score, procedure to continue.
[2020-11-14] MEDS: SODIUM CHLORIDE 0.9% IV 1,000 ML 999 ML (01:02)
--- NOTE | 2020-11-14 01:03 | PC.NURSE ---
NaCl bolus per ERP VRBO
--- NOTE | 2020-11-14 01:44 | PC.NURSE ---
STOP BANG at [address] Campbell. 0036 5 ml propofol pushed by ERP Dr. Campbell. 0037 3 ml propofol pushed by ERP Dr. Campbell. 0045 2 ml propofol pushed by ERP Dr. Campbell. 0051 5 ml propofol pushed by ERP Dr. Campbell.
[2020-11-14] MEDS: HYDROcodone/acetaminophen (*CRX) 5-325 MG TABLET 1 TAB PO (01:52)
--- NOTE | 2020-11-14 01:52 | PC.NURSE ---
Anny for [place] administration per pt blood pressure verified prior to administration with ERP Dr. Campbell.
--- NOTE | 2020-11-14 02:22 | PC.NURSE ---
Pt placed on 5 L Nasal cannula due to low O2 saturation at this time.
--- NOTE | 2020-11-14 03:30 | PC.NURSE ---
Pt no longer requiring oxygen
[2020-11-14] MEDS: fentaNYL CITRATE INJ (*CRX) 100 MCG/2 ML VIAL 25 MCG IV PUSH (04:45)
--- NOTE | 2020-11-14 07:51 | PC.NURSE ---
Pt discharged by RN Summer. IV was removed by Summer RN
--- NOTE | 2020-11-14 16:59 | PM.CNCAR ---
History of Present Illness History of Present Illness Consult date/time: 11/14/20 16:59 Reason For Visit: fall, head injury, arm injury Narrative: Date of service 11/14/2020 Radha Huynh is as 75-year-old female who is being admitted after a fall resulting in a radius fracture. She is followed by Dr. Paredes for her history of mechanical [place] aortic valve replacement, paroxysmal atrial fibrillation and coronary artery disease. She is chronically anticoagulated we were asked to see her at the request of the hospitalist for advice and opinion regarding anticoagulation management. [facility] Past Medical History Medical History Afib Ankle fracture, left Diabetes Herniated disc HTN (hypertension) Surgical History Surgical History History of ankle surgery lt ankle History of hysterectomy Mechanical heart valve present Family History Family History Mother Depression Family history of coronary artery disease Father Family history of diabetes mellitus in first degree relative Other Diabetes mellitus Family history of arthritis Family history of cardiovascular disease Social History Social History Social History: she lives in her own home. She has a small dog. she ambulates without assistance. She is . Code status is full code. Smoking status: Never smoker Second hand tobacco smoke exposure: No Alcohol intake: never Substance use: never Gender identity (if verbalized by the patient): Female Spiritual care concerns: No Agree to blood products: Yes Meds Home Medications and Allergies Home Medications Medication Instructions Recorded Confirmed Type albuterol sulfate 2 puff INHALATION QID PRN 01/09/19 01/09/19 History atorvastatin 10 mg PO HS 01/09/19 01/09/19 History ferrous sulfate 325 mg PO DAILY 01/09/19 01/09/19 History fluticasone propionate [Flonase 2 spray INTRANASAL DAILY 01/09/19 01/09/19 History Allergy Relief] gabapentin 300 mg PO BID 01/09/19 01/09/19 History hydrocodone-acetaminophen 2 tablet PO Q8H PRN 01/09/19 01/09/19 History lisinopril 2.5 mg PO DAILY 01/09/19 01/09/19 History omeprazole 20 mg PO DAILY 01/09/19 01/09/19 History venlafaxine 150 mg PO DAILY 01/09/19 01/09/19 History amiodarone 100 mg PO DAILY 08/08/20 History warfarin 6 mg PO DAILY 08/08/20 History hydrocodone-acetaminophen 1 tablet PO Q6H PRN #10 tablet 09/05/20 Rx hydrocodone-acetaminophen 1 tablet PO Q8H PRN #15 tablet 11/14/20 Rx Allergies Allergy/AdvReac Type Severity Reaction Status Date / Time adhesive tape Allergy Intermediate Blister Verified 11/13/20 17:18 bacitracin Allergy Mild Rash Verified 11/13/20 17:18 neomycin Allergy Mild Rash Verified 11/13/20 17:18 polymyxin B Allergy Mild Rash Verified 11/13/20 17:18 cortisone Allergy Unknown Unknown Verified 11/13/20 17:18 Vital Signs Vital Signs - 24 hr 11/13/20 17:11 11/13/20 22:30 11/13/20 23:31 Temperature 98.3 F Pulse Rate 75 100 67 Pulse Rate [Monitor] Respiratory Rate 16 18 14 Blood Pressure 154/69 H 156/78 H 136/58 L Blood Pressure [Left Arm] Pulse Oximetry 100 100 99 11/14/20 00:35 11/14/20 00:40 11/14/20 00:45 Temperature 97.6 F 98.4 F 98.4 F Pulse Rate Pulse Rate [Monitor] 68 64 64 Respiratory Rate 14 14 18 Blood Pressure Blood Pressure [Left Arm] 153/66 H 123/65 136/86 Pulse Oximetry 100 92 100 11/14/20 00:50 11/14/20 00:55 11/14/20 01:00 Temperature 98.5 F 98.4 F 98.4 F Pulse Rate Pulse Rate [Monitor] 64 64 63 Respiratory Rate 16 20 13 Blood Pressure Blood Pressure [Left Arm] 156/71 H 131/74 158/71 H Pulse Oximetry 100 100 100 11/14/20 01:01 11/14/20 01:05 11/14/20 01:10 Temperature 98.4 F 98.4 F Pulse Rate 63 Pulse Rate [Monitor] 65 65 Respiratory Rate 14
== END 2020-11-14 07:51 | disposition home or self-care (01) ==
PROVIDERS: Emergency Provider Emergency Medicine; PCP Student in an Organized Health Care Education/Training Program
DX: S61.511A Laceration without foreign body of right wrist, initial encounter (principal); S52.501A Unspecified fracture of the lower end of right radius, initial encounter for closed fracture; S00.03XA Contusion of scalp, initial encounter; I48.91 Unspecified atrial fibrillation; E11.9 Type 2 diabetes mellitus without complications; I10 Essential (primary) hypertension; Z79.01 Long term (current) use of anticoagulants; Z79.899 Other long term (current) drug therapy; W01.10XA Fall on same level from slipping, tripping and stumbling with subsequent striking against unspecified object, initial encounter
CPT/HCPCS: 25605; 36415; 70450; 72125; 73080; 73100; 73110; 80048; 85025; 85610; 85730; 96374; 96375; 96376; 99284; A4565; A9270; J2704; J3010; J7030

== ENCOUNTER 2020-11-28 23:46 | Emergency (ER) | payer OTHER, SELFPAY ==
[2020-11-29 00:03] VITALS: BP 174/88; PULSE 73; RESP 14; TEMP 36.7; O2SAT 100
[2020-11-29 02:03] VITALS: BP 101/62; RESP 20; O2SAT 99
--- NOTE | 2020-11-29 02:24 | ED.UPPEXIN ---
HPI - Extremity Injury (Upper) General Chief Complaint: Extremity Injury, Upper Stated Complaint: Hematoma Time Seen by Provider: 11/29/20 01:59 Source: patient Mode of arrival: ambulatory Limitations: no limitations History of Present Illness HPI narrative: Patient is a 75-year-old female complaining of hematoma on her left arm is bleeding. Patient states that the hematoma started a week ago after a fall, has seen her primary care physician and was placed on antibiotics for it. Denies any recent injury. Patient also has an appointment to see a specialist on Thursday since that hematoma became infected. Patient states that her primary care physician advised her that she needs to go to the emergency room if the hematoma started bleeding since she is on a blood thinner. Patient states that the bleeding has now stopped and just wanted to get checked out. Related Data Home Medications Medication Instructions Recorded Confirmed albuterol sulfate 2 puff INHALATION QID PRN 01/09/19 11/19/20 atorvastatin 10 mg PO HS 01/09/19 11/19/20 ferrous sulfate 325 mg PO DAILY 01/09/19 11/19/20 fluticasone propionate [Flonase 2 spray INTRANASAL DAILY 01/09/19 11/19/20 Allergy Relief] gabapentin 300 mg PO BID 01/09/19 11/19/20 hydrocodone-acetaminophen 2 tablet PO Q8H PRN 01/09/19 11/19/20 lisinopril 2.5 mg PO DAILY 01/09/19 11/19/20 omeprazole 20 mg PO DAILY 01/09/19 11/19/20 venlafaxine 150 mg PO DAILY 01/09/19 11/19/20 amiodarone 100 mg PO DAILY 08/08/20 11/19/20 warfarin 6 mg PO DAILY 08/08/20 11/19/20 Allergies Allergy/AdvReac Type Severity Reaction Status Date / Time adhesive tape Allergy Intermediate Blister Verified 11/29/20 02:05 bacitracin Allergy Mild Rash Verified 11/29/20 02:05 neomycin Allergy Mild Rash Verified 11/29/20 02:05 polymyxin B Allergy Mild Rash Verified 11/29/20 02:05 cortisone Allergy Unknown Unknown Verified 11/29/20 02:05 [facility] Past Medical History Medical History Afib Ankle fracture, left Diabetes Herniated disc HTN (hypertension) Surgical History Surgical History History of ankle surgery lt ankle History of hysterectomy Mechanical heart valve present Family History Family History Mother Depression Family history of coronary artery disease Father Family history of diabetes mellitus in first degree relative Other Diabetes mellitus Family history of arthritis Family history of cardiovascular disease Social History Social History Social History: she lives in her own home. She has a small dog. she ambulates without assistance. She is . Code status is full code. Smoking status: Never smoker Second hand tobacco smoke exposure: No Alcohol intake: never Substance use: never Gender identity (if verbalized by the patient): Female Spiritual care concerns: No Agree to blood products: Yes Exam Const: General: no acute distress and alert Orientation/consciousness: patient oriented x3 Limitations: no limitations HENMT: Head: normal to inspection, normocephalic and atraumatic Ears: hearing grossly normal bilaterally, TM normal on the right and TM normal on the left General nose exam: Normal external nose present, Normal nares present and No nasal discharge present Face and sinus: normal facial exam Mouth: Yes Normal oral and palatal mucosa present, Yes lip normal, Yes tongue normal and Yes oropharynx normal Throat: tonsils normal Eyes: General: appearance normal, both eyes and all related structures Conjunctivae: conjunctivae normal Neck: Neck: normal visual inspection and full ROM Chest: Chest palpation & inspection: normal inspection of the chest Resp: Effort & Inspection: normal respiratory effort, able to speak in complete sentences,
[2020-11-29 03:31] VITALS: BP 110/69; PULSE 79; RESP 18; O2SAT 99
== END 2020-11-29 03:33 | disposition home or self-care (01) ==
LOC: ANHED 11-29 02:48
PROVIDERS: Emergency Provider Emergency Medicine; PCP Student in an Organized Health Care Education/Training Program
DX: S40.022A Contusion of left upper arm, initial encounter (principal); I48.91 Unspecified atrial fibrillation; E11.9 Type 2 diabetes mellitus without complications; I10 Essential (primary) hypertension; Z79.01 Long term (current) use of anticoagulants; W19.XXXA Unspecified fall, initial encounter
CPT/HCPCS: 99282

== ENCOUNTER 2021-03-11 15:23 | Outpatient (CLI) | payer OTHER, SELFPAY ==
--- NOTE | ~2021-03-11 | XR_ITS ---
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 TECHNIQUE: Frontal and lateral projections of the chest obtained and reviewed. Comparison is made to prior examination from 09/05/2020. FINDINGS: There are sternotomy wires, cardiac valve replacement. Lung reticulation within normal [place] its. The lungs are clear. There are no pleural effusions. The cardiomediastinal silhouette is withi n normal limits. There is no pneumothorax suspected. The bones and soft tissues are unremarkable. There is aortic arteriosclerosis. IMPRESSION: Unremarkable chest x-ray exam. Reviewed, dictated and finalized at location A. IN BEAT ADJUSTER
== END 2021-03-11 15:24 | disposition home or self-care (01) ==
PROVIDERS: PCP Student in an Organized Health Care Education/Training Program; Visit Provider Nurse Practitioner Adult Health
DX: Z91.89 Other specified personal risk factors, not elsewhere classified (principal); Z79.899 Other long term (current) drug therapy
CPT/HCPCS: 71046

== ENCOUNTER 2021-03-21 10:59 | Observation (INO) | payer OTHER, SELFPAY ==
[2021-03-21] VITALS (42 sets, daily range): BP systolic 131–207; BP diastolic 64–103; PULSE 61–82; RESP 10–48; TEMP 36.3–36.6; O2SAT 96–100
--- NOTE | ~2021-03-21 | CT_ITS ---
EXAMINATION: CTA chest PE protocol DATE: 03/21/2021 16:47 INDICATION: Exertional shortness of breath. Hypertension. TECHNIQUE: Computed tomography angiography (CTA) of the chest was performed with 100 mL Omnipaque-350 intravenous contrast timed to evaluate the pulmonary arteries. Coronal maximum intensity projection 3D-reconstructions were created by the technologist. Automated exposure control and iterative reconst ruction technique were employed. Exam dose: 749.23 mGy-cm total exam DLP. COMPARISON: 03/21/2021 AP and lateral chest FINDINGS: Status post sternotomy and aortic valve replacement. Cardiomegaly. No pericardial effusion. There is diagnostic contrast enhancement of the pulmonary arteries and no evidence of pulmonary embol ism. There is aortic, great vessel and coronary artery calcification... No thoracic aortic aneurysm or dissection. No hilar or mediastinal mass lesion or lymphadenopathy. No pulmonary infiltrate or consolidation or pulmonary mass lesion. Prominent chronic T6 burst fracture deformity with severe loss of height and anterior wedging. Diffus e osteopenia. Degenerative changes of the cervical, thoracic and lumbar spine. IMPRESSION: No evidence of pulmonary embolism Status post aortic valve replacement Cardiomegaly Chronic T6 burst fracture deformity Reviewed, dictated and finalized at Location [facility]. Reviewed, dictated and finalized at location J. 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
--- NOTE | ~2021-03-21 | XR_ITS ---
EXAMINATION: XR chest 2V DATE: 03/21/2021 11:54 INDICATION: Shortness of breath. TECHNIQUE: Frontal and lateral views of the chest were obtained. COMPARISON: Chest 2 views 03/11/2021 FINDINGS: There is no pneumonia, pleural effusion, or pneumothorax. Cardiomegaly is noted. There are changes of heart valve replacement. There are prominent paracardial fat pads. IMPRESSION: 1. Cardiomegaly. Reviewed, dictated and finalized at location B. N RESOURCE MANAGER IMPRESSION: 1. Cardiomegaly.
--- NOTE | 2021-03-21 11:25 | ECG_ITS ---
Measurements Intervals [place] Rate: 72 P: -52 NE: 181 QRS: -33 QRSD: 148 T: 89 QT: 406 QTc: 444 Interpretive Statements SINUS RHYTHM LEFT AXIS DEVIATION LEFT BUNDLE BRANCH BLOCK INFERIOR INFARCT OR DUE TO LBBB BASELINE ARTIFACT- I, II, III, AVR, AVL, AVF ABNORMAL ECG Electronically Signed On 03-21-2021 12:55:32 CONSULTING MARINE ENGINEER by Emil Farrell D.O.
--- NOTE | 2021-03-21 11:37 | ED.GENADULT ---
HPI - General Adult General Chief complaint: Shortness of Breath/Dyspnea Stated complaint: sob Time Seen by Provider: 03/21/21 11:26 History of Present Illness HPI narrative: 75-year-old female with history of COPD hypertension and diabetes presents to the emergency department for evaluation of 2 days of worsening exertional shortness of breath. Patient states she has not on oxygen at home and has not been using any of her inhalers. Patient denies any chest pain. Patient states that on Thursday she was so fatigued after taking a shower that she barely made it back to her bed. Patient denies any abdominal pain patient denies any pain with urination. Patient denies any falls or injury. Patient states she is vaccinated against COVID and did get her booster. Patient denies any COVID exposure. Related Data Home Medications Medication Instructions Recorded Confirmed albuterol sulfate 2 puff INHALATION QID PRN 01/09/19 01/07/21 atorvastatin 10 mg PO HS 01/09/19 01/07/21 ferrous sulfate 325 mg PO DAILY 01/09/19 01/07/21 fluticasone propionate [Flonase 2 spray INTRANASAL DAILY 01/09/19 01/07/21 Allergy Relief] gabapentin 300 mg PO BID 01/09/19 01/07/21 lisinopril 2.5 mg PO DAILY 01/09/19 01/07/21 omeprazole 20 mg PO DAILY 01/09/19 01/07/21 venlafaxine 150 mg PO DAILY 01/09/19 01/07/21 amiodarone 100 mg PO DAILY 08/08/20 01/07/21 warfarin 6 mg PO DAILY 08/08/20 01/07/21 Allergies Allergy/AdvReac Type Severity Reaction Status Date / Time adhesive tape Allergy Intermediate Blister Verified 03/21/21 11:27 bacitracin Allergy Mild Rash Verified 03/21/21 11:27 neomycin Allergy Mild Rash Verified 03/21/21 11:27 polymyxin B Allergy Mild Rash Verified 03/21/21 11:27 cortisone Allergy Unknown Unknown Verified 03/21/21 11:27 Review of Systems Review of Systems: CONSTITUTIONAL: Denies fever, chills, or sweats. Does report increasing exertional shortness of breath and fatigue EYES: Denies visual changes, redness, or discharge. ENT: Denies rhinorrhea, congestion, sore throat, or otalgia. CARDIOVASCULAR: Denies chest pain, palpitations, or edema. RESPIRATORY: Denies cough or dyspnea. GASTROINTESTINAL: Denies abdominal pain, nausea, vomiting, or diarrhea. GENITOURINARY: Denies dysuria or hematuria. SKIN: Denies rash or itching. MUSCULOSKELETAL: Denies back pain, joint pain, or myalgia. NEUROLOGIC: Denies headache, numbness, or weakness. PSYCHIATRIC: Denies anxiety or depression. [facility] Past Medical History Medical History (Updated 03/21/21 @ 17:52 by Naveen Rouse MD) Afib Ankle fracture, left Depression Diabetes Herniated disc HTN (hypertension) Hyperlipidemia Surgical History Surgical History History of ankle surgery lt ankle History of hysterectomy Mechanical heart valve present Family History Family History Mother Depression Family history of coronary artery disease Father Family history of diabetes mellitus in first degree relative Other Diabetes mellitus Family history of arthritis Family history of cardiovascular disease Social History Social History (Updated 03/21/21 @ 17:38 by Deb Cummings NP) Social History: she lives in her own home. She has a small dog. she ambulates without assistance. She is . Code status is full code.w 4sons Second hand tobacco smoke exposure: No Alcohol intake: never Substance use: never Gender identity (if verbalized by the patient): Female Spiritual care concerns: No Agree to blood products: Yes Exam Narrative: APPEARANCE: Well appearing, no pain in distress, well-nourished. HEAD: normocephalic, atraumatic. EYES: PERRLA/EOMI, conjunctivae clear. NOSE: Normal no drainage NECK: Supple. No adenopathy, no masses. RESPIRATORY: Airway patent, respirations nonlabored. Clear to auscultation bilaterally, no rales, rhonchi, wheezing
[2021-03-21 11:47] LABS: Basophils Absolute Auto 0.1 K/mm3 (0.0-0.1); Basophils Percent Auto 0.6 % (0.2-1.2); Eosinophils Absolute Auto 0.3 K/mm3 (0-0.3); Eosinophils Percent Auto 2.7 % (0-4.4); Hematocrit 38.6 % (37.0-47.0); Hemoglobin 12.1 g/dL (12.0-15.0); Immature Granulocyte Absolute 0.04 K/mm3 (0.00-0.031); Immature Granulocyte Percent A 0.4 % (0-0.5); Lymphocytes Absolute Auto 1.88 K/mm3 (0.9-3.2); Lymphocytes Percent Auto 19.5 % (18.3-44.2); Mean Corpuscular HGB Conc 31.3 g/dl (32-36); Mean Corpuscular Hemoglobin 33.7 pg (26-34); Mean Corpuscular Volume 107.5 fl (80-100); Mean Platelet Volume 12.2 fl (7.4-10.4); Monocytes Absolute Auto 1.2 K/mm3 (0.1-0.6); Monocytes Percent Auto 12.5 % (2.6-8.5); Neutrophils Absolute Auto 6.2 K/mm3 (1.3-6.7); Neutrophils Percent Auto 64.3 % (45.5-73.1); Platelet Count Result 270 k/mm3 (150-375); Red Blood Count 3.59 M/mm3 (4.2-5.4); Red Cell Distribution Width 13.2 % (11.5-14.5); White Blood Count 9.7 K/mm3 (4.5-10.0)
[2021-03-21 11:58] LABS: INR 1.6; Prothrombin Time 19.1 Seconds (11.1-14.7)
[2021-03-21 11:59] LABS: Partial Thromboplastin Time 35.5 SECONDS (22.3-36.8)
[2021-03-21] MEDS: ASPIRIN 81 MG CHEWABLE TABLET 324 MG PO (12:00)
[2021-03-21 12:52] LABS: Alanine Aminotransferase 28 U/L (4-35); Albumin Level 3.8 g/dL (3.5-5.1); Alkaline Phosphatase 66 U/L (38-126); Anion Gap 3 mmol/L (8-16); Aspartate Amino Transferase 31 U/L (14-36); Bilirubin,Total 0.4 mg/dL (0.2-1.3); Blood Urea Nitrogen 26 mg/dL (7-17); Calcium 10.5 mg/dL (8.4-10.2); Carbon Dioxide 31 mmol/L (22-30); Chloride 104 mmol/L (98-107); Estimated CRCL calculation 37 ml/min; Estimated Glomerular Filt Rate 40; Glucose 94 mg/dL (65-110); Potassium 4.3 mmol/L (3.4-5.0); Sodium 138 mmol/L (137-145)
[2021-03-21 12:58] LABS: Troponin I 0.017 ng/mL (0.000-0.034)
[2021-03-21 13:29] LABS: Lipase 187 U/L (23-300)
[2021-03-21 14:42] LABS: Add Urine Microscopic? YES; Appearance Urine Clear (Clear); Bacteria Urine Trace /hpf; Bilirubin Urine Negative (Negative); Blood Urine Negative (Negative); Color Urine Colorless (Yellow); Glucose Urine UA Negative (Negative); Ketones Urine Negative (Negative); Leukocyte Esterase Ur Trace LEU/UL (Negative); Mucus Urine Rare /lpf; Nitrate Urine Negative (Negative); Protein Urine Negative (Negative); RBC Urine 0-2 /hpf (0-2); Squamous Epithelial Cell Urine Rare /hpf (Few); Urobilinogen Urine Negative mg/dL (<2.0)
[2021-03-21 14:43] LABS: Specific Grav Ur 1.003 (1.001-1.035)
[2021-03-21 14:45] LABS: Troponin I 0.019 ng/mL (0.000-0.034)
--- NOTE | 2021-03-21 16:25 | PC.NURSE ---
Attempted to ambulate pt. Pt made it 3 steps to doorway before becoming sob and unsteady on feet. Pt returned to bed due to dyspnea. spo2 95 % on room air.
--- NOTE | 2021-03-21 17:35 | PM.IMHP ---
H&P: HPI History of Present Illness Date/Time: 03/21/21 17:35 this is a 75-year-old female patient who lives home alone. She has a history of COPD and diabetes. The patient stated that she has been feeling short of breath more so with exertion. The patient has not been coughing or had any fever. However she states that she does feel weak. The patient stated that she has been on antibiotics before [place] and believes that she has completed it. The patient's INR was over 5 about a week ago according to a relative and the patient was holding Coumadin for approximately 4 days. She was due to have a repeat INR drawn today. The patient has not been on oxygen at home. She has been using her inhalers. The patient is vaccinated against COVID and did get her booster. Patient denies any COVID exposure. The patient denies any recent falls or injury. Patient is on room air and her pulse ox has been 98-100%. Patient was swabbed for COVID 19. Her creatinine is 1.3 today however her baseline is anywhere from 1.1-1.9. Chest x-ray was read as cardiomegaly. Chest x-ray was read as no evidence of pulmonary embolism. Status post aortic valve replacement. Cardiomegaly. Chronic T6 burst fracture deformity. Patient was given an aspirin in the emergency room. Troponin negative x2. The patient is complaining of some reproducible pain that is epigastric. The patient stated that she does have a hiatal hernia. The patient is being admitted for observation status on the date of service of 03/21/2021. Chief Complaint: Shortness of breath Review of Systems Review of Systems: All systems reviewed & are unremarkable except as noted in HPI and below Constitutional: Constitutional: Reports as per HPI and Reports no additional constitutional complaints Eyes: Eyes: Reports as per HPI and Reports no additional eye complaints ENT: Reports system reviewed and no additional complaints, except as documented and Reports Normal hearing present Cardiovascular: Cardiovascular: Reports no additional cardiovascular complaints Respiratory: Respiratory: Reports no additional respiratory complaints and Reports no additional respiratory complaints Gastrointestinal: Gastrointestinal: Reports as per HPI and Reports no additional gastrointestinal complaints Musculoskeletal: Musculoskeletal: Reports no additional musculoskeletal complaints Integumentary/Breasts: Skin/Breast: Reports system reviewed and no additional complaints, except as docu and Reports as per HPI Neurologic: Reports system reviewed and no additional complaints, except as documented, Reports as per HPI and Reports Normal hearing present Psychiatric: Psychiatric: Reports no additional psychiatric complaints and Reports as per HPI Endocrine: Endocrine: Reports no additional endocrine complaints Hematologic/Lymphatic: Hematologic/Lymphatic: Reports no additional hematologic/lymphatic complaints Allergic/Immunologic: Allergic/Immunologic: Reports no additional allergic/immunologic complaints [facility] Past Medical History Medical History (Updated 03/21/21 @ 19:23 by Deb Cummings NP) Afib Ankle fracture, left Atrial fibrillation with rapid ventricular response COPD (chronic obstructive pulmonary disease) Patient had a pulmonary function test on 02/24/2020 which was suggestive of COPD. Depression Diabetes Herniated disc HTN (hypertension) Hyperlipidemia Surgical History Surgical History (Updated 03/21/21 @ 18:52 by Deb Cummings NP) History of ankle surgery lt ankle History of hysterectomy Mechanical heart valve present Aortic valve Family History Family History Mother Depression Family history of coronary artery disease Father Family history of diabetes mellitus in first degree relative Other Diabetes mellitus Family history of arthritis Family history of cardiovascular disease Social History Social History (Update
--- NOTE | 2021-03-21 19:51 | ADMGEN ---
This patient, Radha Huynh, was admitted to [facility] Surg Room 314-01. Patient/family oriented to hospital policies and general routines including ID bracelet, bed and alarms, visiting hours, pain management, procedures, bathroom and other care routines, personal items, smoking policy, room service/diet, and visiting hours. Information on how to activate the Rapid Response Team has been discussed. Patient/Family are encouraged to report perceived risks to care and to ask questions if they do not understand what they are told or what they should do.
[2021-03-21 19:54] LABS: Troponin I 0.019 ng/mL (0.000-0.034)
[2021-03-21 20:41] LABS: SARS-CoV-2 RNA PCR Negative
[2021-03-21] MEDS: WARFARIN (*PBKC) 2 MG, WARFARIN (*PBKC) 5 MG 7 MG PO (22:49)
[2021-03-22] VITALS (8 sets, daily range): BP systolic 104–125; BP diastolic 49–62; PULSE 68–75; RESP 16–18; TEMP 36–36.7; O2SAT 98–99
--- NOTE | 2021-03-22 | ECHO_ITS ---
Patient Info Name: Radha Huynh Age: 75 years : 1945 Gender: Female Ht: 64 in Wt: 214 lbs BSA: 2.14 m2 HR: 61 bpm BP: 104 / 49 mmHg Exam Date: 03/22/2021 10:40 AM Exam Location: [facility] Pulmonary Patient Status: Inpatient Admit Date: 03/21/2021 Staff Ordering Physician: Deb Cummings NP Core Finisher: Jose Nguyen RDCS, RT Attending Provider: Adriana Garcia PA-C Referring Physician: Emiliano SCHWARTZ; Exam Type: CA echo dop color flow w con Study Info Indications I50.9 - Heart failure, unspecified Complete two-dimensional, color flow and Doppler transthoracic echocardiogram is performed with contrast to opacify the left ventricle and to improve the deliniation of the left ventricle endocardial borders. Summary 1. Normal LV size, moderate LVH, borderline LV systolic function, ejection fraction about 50-55%, grade 1 diastolic dysfunction. Mild left enlargement. Mild mitral annular calcification, trivial MR. Aortic valve is not well visualized. Moderate aortic stenosis by valve area criteria with relatively low mean gradient. Maximum velocity 2.75 m/sec, mean gradient 16 mmHg. YADIRA 1.1 cm2. Trivial TR, RVSP 34 mmHg. Recommend further evaluation of aortic valve anatomy by ALFRED if clinically appropriate. Left Ventricle Left ventricular systolic function is normal, estimated at 50-55%. There is moderately increased left ventricular wall thickness. The left ventricular diastolic function is grade I diastolic dysfunction. Right Ventricle Right ventricular chamber dimension is normal. Right ventricular systolic function is normal. Left Atria Left atrial chamber dimension is mildly enlarged. Right Atria Right atrial chamber dimension is normal. Aortic Valve The aortic valve is not well visualized. There is mild aortic valve regurgitation. Pulmonic Valve The pulmonic valve is normal. Mitral Valve There is trace mitral valve regurgitation. The mitral valve annulus is mildly calcified. Pericardium/Pleural The pericardium appears epicardial fat pad. Aorta The aortic root size at the sinus of Valsalva is not well visualized. Left Ventricular Outflow Tract Name Value Normal LVOT 2D LVOT Diameter 1.94 cm LVOT Doppler LVOT Peak Gradient 3 mmHg LVOT Mean Gradient 1 mmHg LVOT VTI 19.12 cm LVOT VTI/AV VTI Ratio 0.36 LVOT Stroke Volume 56.35 ml LVOT CO 3.25 l/min LVOT CI 1.52 L/min/m2 Mitral Valve Name Value Normal MV Doppler MV Decel Person 427.57 cm/s2 MV PHT 0 s MV Area (PHT) 3.09 cm2 4.00-5.00 MV Regurgitation Doppler
[2021-03-22] MEDS: ATORVASTATIN 10 MG TABLET PO ×2 (02:23→22:31)
[2021-03-22] MEDS: ACETAMINOPHEN 325 MG TABLET 650 MG PO ×3 (03:41→22:32)
[2021-03-22 08:00] LABS: Glucose Point of Care 66 mg/dl (65-105)
[2021-03-22 08:03] LABS: Prothrombin Time 22.1 Seconds (11.1-14.7)
[2021-03-22] MEDS: VENLAFAXINE HCL XR 75 MG CAP.ER.24H 150 MG PO (09:17)
[2021-03-22] MEDS: AMIODARONE HCL 100 MG TABLET PO (09:17)
[2021-03-22] MEDS: lisinopriL 2.5 MG TABLET PO (09:17)
[2021-03-22] MEDS: GABAPENTIN 300 MG CAPSULE PO ×2 (09:17→16:38)
[2021-03-22] MEDS: FLUTICASONE PROPIONATE 0.05% NA SPR 16 GM BTL (*BKC) 2 SPRAY NASAL (09:18)
[2021-03-22] MEDS: FERROUS SULFATE 324 MG TABLET PO (09:18)
[2021-03-22] MEDS: PANTOPRAZOLE 40 MG TABLET PO (09:18)
--- NOTE | 2021-03-22 11:26 | HOMEO2EVAL ---
Evaluation was performed at [facility] Home Oxygen Evaluation RC: Home Oxygen (O2) Evaluation Start: 03/21/21 17:40 Freq: ONCE Status: Active Protocol: RPE Activity Type Activity Date Activity User E-Sign Co-Sign Detail Recorded Client Recorded Date Recorded By Document 03/22/21 10:15 BRENTON [id number] 03/22/21 11:26 BRENTON Document 03/22/21 10:20 BRENTON [id number] 03/22/21 11:26 BRENTON Document 03/22/21 10:30 BRENTON [id number] 03/22/21 11:26 BRENTON 03/22/21 03/22/21 03/22/21 10:15 10:20 10:30 Home O2 Evaluation Test Phase Resting Exercise Resting Oxygen Delivery Room Air Room Air Room Air Pulse Oximetry (90-100 %) 99 98 98 Home Oxygen Evaluation Comments NO HOME O2 NEEDED Treatment Charges O2 Evaluation - Inpatient
--- NOTE | 2021-03-22 11:26 | PCRCNOTE ---
HOME O2 EVAL COMPLETED, NO HOME O2 NEEDED AT THIS TIME.
[2021-03-22 11:59] LABS: Glucose Point of Care 92 mg/dl (65-105)
--- NOTE | 2021-03-22 15:20 | PM.IMPN ---
Progress Note: A&P Assessment and Plan (1) Acute dyspnea: Code(s): R06.00 - Dyspnea, unspecified Status: Acute Assessment and Plan: -pt reports increasing sob x 2 weeks -CTA neg for PE, lungs clear no crackles no LE edema -Covid negative -patient maintains oxygen saturations of 99-100% on RA -did not qualify for oxygen with home O2 study -Continue her COPD inhalers -does have hx of aortic valve replacement which is not fully visualized on echo, ALFRED recommended therefore cardiology consult placed, appreciate any recommendations. (2) COPD (chronic obstructive pulmonary disease): Code(s): J44.9 - Chronic obstructive pulmonary disease, unspecified Status: Chronic Assessment and Plan: Continue with patient's inhalers from home. (3) Depression: Code(s): F32.A - Depression, unspecified Status: Chronic Assessment and Plan: Continue with venlafaxine. (4) Hyperlipidemia: Code(s): E78.5 - Hyperlipidemia, unspecified Status: Acute Assessment and Plan: Continue with atorvastatin. 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 -Continue to monitor daily -Cardiology consulted, appreciate any additional recommendations (6) Atrial fibrillation: Code(s): I48.91 - Unspecified atrial fibrillation Status: Acute Assessment and Plan: Continue with Coumadin. Continue with amiodarone. The patient is currently in sinus rhythm. (7) HTN (hypertension): Code(s): I10 - Essential (primary) hypertension Status: Acute Assessment and Plan: Continue with lisinopril and amiodarone. Subjective Date/time seen: 03/22/21 15:20 Interval history: Pt is a 75 yo pt w/ hx of DM, COPD, mechanical aortic valve replacement, admitted to the hospital for dyspnea. Pt was getting her echo during the time of my exam. She has no sob at rest but continues to report sob with exertion despite remaining in the high 90s even during home o2 evaluation. She denies cp. Does admit to intermittent epigastric pain consistent w/ her hiatal hernia. Review of Systems Review of Systems: General: Denies fevers, +weakness Eyes: Denies vision changes ENT: Denies nasal congestion or sore throat Respiratory: Denies cough, + shortness of breath Cardiovascular: Denies chest pain or lower extremity edema Gastrointestinal: + abdominal pain, vomiting, or diarrhea Genitourinary: Denies dysuria Musculoskeletal: Denies back pain Neurological: Denies headache or motor weakness Integumentary: Denies rash Exam Narrative: General: No acute distress, non toxic appearing, obese Eyes: PERRL, no scleral icterus HEENT: NCAT, external ears normal, MMM Respiratory: No respiratory distress, Lungs CTA bilaterally, no wheezing Cardiovascular: RRR, no murmur Abdominal: Soft, minimal epigastric ttp, non distended, no rebound or guarding Musculoskeletal: Moves all 4 extremities, no edema Neurological: A/Ox3, speech normal, no facial asymmetry Skin: Warm, dry, no rashes Psychiatric: Normal affect, normal mood Objective Data Vital Signs Vital Signs: Vital Signs - 24 hr 03/21/21 15:48 03/21/21 16:00 03/21/21 16:02 Temperature Pulse Rate 68 68 67 Respiratory Rate 16 15 19 Blood Pressure 147/71 H Pulse Oximetry 03/21/21 16:15 03/21/21 16:17 03/21/21 16:30 Temperature Pulse Rate 68 68 70 Respiratory Rate 16 11 L 23 H Blood Pressure 131/64 Pulse Oximetry 03/21/21 16:49 03/21/21 16:51 03/21/21 17:00 Temperature Pulse Rate 74 71 Respiratory Rate 48 H 22 H 18 Blood Pressure 165/67 H Pulse Oximetry 98 98 99 03/21/21 18:39 03/21/21 21:36 03/22/21 04:59 Temperature 97.3 F L 96.8 F L Pulse Rate 65 76 71 Respiratory Rate 20 18 18 Blood
[2021-03-22] MEDS: WARFARIN (*PBKC) 2 MG, WARFARIN (*PBKC) 5 MG 7 MG PO (16:38)
[2021-03-23 05:30] VITALS: BP 130/58; PULSE 57; RESP 16; TEMP 36.4; O2SAT 99
[2021-03-23 07:20] LABS: Basophils Absolute Auto 0.1 K/mm3 (0.0-0.1); Basophils Percent Auto 1.2 % (0.2-1.2); Eosinophils Absolute Auto 0.3 K/mm3 (0-0.3); Eosinophils Percent Auto 4.4 % (0-4.4); Hematocrit 34.6 % (37.0-47.0); Hemoglobin 10.8 g/dL (12.0-15.0); Immature Granulocyte Absolute 0.02 K/mm3 (0.00-0.031); Immature Granulocyte Percent A 0.4 % (0-0.5); Lymphocytes Absolute Auto 1.42 K/mm3 (0.9-3.2); Lymphocytes Percent Auto 25.2 % (18.3-44.2); Mean Corpuscular HGB Conc 31.2 g/dl (32-36); Mean Corpuscular Hemoglobin 33.5 pg (26-34); Mean Corpuscular Volume 107.5 fl (80-100); Mean Platelet Volume 12.1 fl (7.4-10.4); Monocytes Absolute Auto 0.6 K/mm3 (0.1-0.6); Neutrophils Absolute Auto 3.3 K/mm3 (1.3-6.7); Neutrophils Percent Auto 57.8 % (45.5-73.1); Platelet Count Result 229 k/mm3 (150-375); Red Blood Count 3.22 M/mm3 (4.2-5.4); Red Cell Distribution Width 13.1 % (11.5-14.5); White Blood Count 5.6 K/mm3 (4.5-10.0)
[2021-03-23 07:29] LABS: Alanine Aminotransferase 21 U/L (4-35); Albumin Level 3.5 g/dL (3.5-5.1); Alkaline Phosphatase 58 U/L (38-126); Anion Gap 4 mmol/L (8-16); Aspartate Amino Transferase 24 U/L (14-36); Bilirubin,Total 0.3 mg/dL (0.2-1.3); Blood Urea Nitrogen 25 mg/dL (7-17); Calcium 10.6 mg/dL (8.4-10.2); Carbon Dioxide 27 mmol/L (22-30); Chloride 107 mmol/L (98-107); Estimated CRCL calculation 35 ml/min; Estimated Glomerular Filt Rate 37; Glucose 94 mg/dL (65-110); Lactate Dehydrogenase 529 U/L (313-618); Magnesium 1.9 mg/dL (1.6-2.3); Potassium 4.4 mmol/L (3.4-5.0); Sodium 138 mmol/L (137-145)
[2021-03-23 07:36] LABS: INR 2.1; Prothrombin Time 22.7 Seconds (11.1-14.7)
[2021-03-23 08:32] VITALS: PULSE 74
[2021-03-23] MEDS: VENLAFAXINE HCL XR 75 MG CAP.ER.24H 150 MG PO (08:32)
[2021-03-23] MEDS: AMIODARONE HCL 100 MG TABLET PO (08:32)
[2021-03-23] MEDS: GABAPENTIN 300 MG CAPSULE PO ×2 (08:32→17:52)
[2021-03-23] MEDS: FLUTICASONE PROPIONATE 0.05% NA SPR 16 GM BTL (*BKC) 2 SPRAY NASAL (08:32)
[2021-03-23] MEDS: FERROUS SULFATE 324 MG TABLET PO (08:33)
[2021-03-23] MEDS: lisinopriL 2.5 MG TABLET PO (08:33)
[2021-03-23] MEDS: PANTOPRAZOLE 40 MG TABLET PO (08:33)
--- NOTE | 2021-03-23 12:36 | PM.IMPN ---
Progress Note: A&P Assessment and Plan (1) Acute dyspnea: Code(s): R06.00 - Dyspnea, unspecified Status: Acute Assessment and Plan: -pt reports increasing sob x 2 weeks -CTA neg for PE, lungs clear no crackles no LE edema -Covid negative -patient maintains oxygen saturations of 99-100% on RA -did not qualify for oxygen with home O2 study -Continue her COPD inhalers -does have hx of aortic valve replacement which is not fully visualized on echo, ALFRED recommended therefore cardiology consult placed, appreciate any recommendations. (2) COPD (chronic obstructive pulmonary disease): Code(s): J44.9 - Chronic obstructive pulmonary disease, unspecified Status: Chronic Assessment and Plan: Continue with patient's inhalers from home. (3) Depression: Code(s): F32.A - Depression, unspecified Status: Chronic Assessment and Plan: Continue with venlafaxine. (4) Hyperlipidemia: Code(s): E78.5 - Hyperlipidemia, unspecified Status: Acute Assessment and Plan: Continue with atorvastatin. (5) Mitral valve disorder: Code(s): I05.9 - Rheumatic mitral valve disease, unspecified Status: Acute Assessment and Plan: -recently had her Coumadin held because her INR was elevated -Patient's INR was low 1.6 on arrival, restarted her Coumadin. -Continue to monitor daily -Cardiology consulted, appreciate any additional recommendations (6) Atrial fibrillation: Code(s): I48.91 - Unspecified atrial fibrillation Status: Acute Assessment and Plan: Continue with Coumadin. Continue with amiodarone. The patient is currently in sinus rhythm. (7) HTN (hypertension): Code(s): I10 - Essential (primary) hypertension Status: Acute Assessment and Plan: Continue with lisinopril and amiodarone. Subjective Date/time seen: 03/23/21 12:36 Interval history: Pt is a 75 yo pt w/ hx of DM, COPD, mechanical aortic valve replacement, admitted to the hospital for dyspnea. Pt states she is still extremely short of breath with exertion and that this morning she had a brief episode of feeling like she couldnt breathe that lasted for a few seconds until she used her inhaler. She denies chest pain or palpitations. Does admit to intermittent epigastric pain consistent w/ her hiatal hernia. Review of Systems Review of Systems: General: Denies fevers, +weakness Eyes: Denies vision changes ENT: Denies nasal congestion or sore throat Respiratory: Denies cough, + shortness of breath Cardiovascular: Denies chest pain or lower extremity edema Gastrointestinal: + abdominal pain, denies vomiting or diarrhea Genitourinary: Denies dysuria Musculoskeletal: Denies back pain Neurological: Denies headache or motor weakness Integumentary: Denies rash Exam Narrative: General: No acute distress, non toxic appearing, obese Eyes: PERRL, no scleral icterus HEENT: NCAT, external ears normal, MMM Respiratory: No respiratory distress, Lungs CTA bilaterally, no wheezing Cardiovascular: RRR, no murmur Abdominal: Soft, minimal epigastric ttp, non distended, no rebound or guarding Musculoskeletal: Moves all 4 extremities, no edema Neurological: A/Ox3, speech normal, no facial asymmetry Skin: Warm, dry, no rashes Psychiatric: Normal affect, normal mood Objective Data Vital Signs Vital Signs: Vital Signs - 24 hr 03/22/21 14:00 03/22/21 22:00 03/23/21 05:30 Temperature 98.1 F 98.0 F 97.5 F L Pulse Rate 75 68 57 L Respiratory Rate 16 16 16 Blood Pressure 110/59 L 125/62 130/58 L Pulse Oximetry 99 99 99 03/23/21 08:32 Temperature Pulse Rate 74 Respiratory Rate Blood Pressure Pulse Oximetry Intake/Output Intake/Output: Intake & Output 03/20/21 03/21/21 03/22/21 03/23/21 23:59 23:59 23:59 23:59 Intake Total 2230 540 Output Total 1600 Balance 2230 -1060 Meds/Results Medicat
[2021-03-23 14:00] VITALS: BP 136/66; PULSE 72; RESP 20; TEMP 36.3; O2SAT 96
[2021-03-23] MEDS: WARFARIN (*PBKC) 2 MG, WARFARIN (*PBKC) 5 MG 7 MG PO (17:52)
--- NOTE | 2021-03-23 21:37 | PM.CNCAR ---
Assessment and Plan Assessment and plan (1) H/O mechanical aortic valve replacement: Code(s): Z95.2 - Presence of prosthetic heart valve Status: Acute Assessment and Plan: History of aortic valve replacement. The patient's echocardiogram was read as having a possible abnormal aortic valve but I believe Dr. Graham did not realize she has a prosthetic valve. The velocities through her valve are actually improved compared to her echo in 2019, with lower transvalvular velocities, and a lower mean gradient. They are normal for a prosthetic heart valve. The valve also sounds normal on auscultation. There does not appear to be any significant valve stenosis by echo. In context than, I doubt there is any valve dysfunction, and I do not think that it ALFRED is indicated. (2) TORRES (dyspnea on exertion): Code(s): R06.00 - Dyspnea, unspecified Status: Acute Assessment and Plan: Unclear etiology. The patient is not anemic, not in atrial fibrillation, and does not appear to have any amiodarone induced pulmonary toxicity by CT scan or chest x-ray. She does have diastolic dysfunction and COPD which may be contributing. (3) Diastolic dysfunction: Code(s): I51.89 - Other ill-defined heart diseases Status: Acute Assessment and Plan: LVH and diastolic dysfunction by echo (4) On amiodarone therapy: Code(s): Z79.899 - Other mcc (current) drug therapy Status: Acute Assessment and Plan: On low-dose amiodarone therapy since 2019. Chest x-ray and CT do not suggest any pulmonary toxicity. Consider PFTs as they may be more sensitive. 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 female were asked to see by the hospitalist for advice and opinion regarding her abnormal echo in consultation. She is S/p [employer] mechanical AVR 2003, chronically anticoagulated, and followed by Dr. Paredes in our office. She also has history of CAD, COPD, sleep apnea on CPAP, and hypertension. She has a history of paroxysmal atrial fibrillation and has maintained sinus rhythm on amiodarone at low dose 100 mg a day. This was started in 2018. She was last seen in our office on March 11, 2021, complaining of some mild TORRES. She was in sinus rhythm. We will plan on repeating her chest x-ray for amiodarone follow-up, and repeating her echocardiogram as she had mildly elevated velocities across the aortic valve on her prior echo. The patient was admitted on the complaining of progressive TORRES for 2 week. Etiology is uncertain; Chest x-ray is clear, CTA was negative for PE, she is COVID negative, she is oxygenating well. She notes some transient slight improvement with her inhalers. Her echocardiogram, as below, suggested possible aortic stenosis. However I do not believe Dr. Graham realized that this is a prosthetic aortic valve.. She notes some vague chest tightness at rest. No bleeding. Review of Systems Constitutional: Constitutional: Reports lethargy Eyes: Eyes: Reports no additional eye complaints ENT: Reports system reviewed and no additional complaints, except as documented Cardiovascular: Cardiovascular: Reports chest pain (Vague chest tightness at rest), Denies pedal edema, Denies leg edema, Denies lightheadedness and Denies palpitations Respiratory: Respiratory: Denies cough, Denies hemoptysis and Reports dyspnea on exertion Gastrointestinal: Gastrointestinal: Denies hematochezia Comments: History of hiatal hernia and previous stricture which has been dilated in the pa
[2021-03-23] MEDS: ATORVASTATIN 10 MG TABLET PO (21:43)
[2021-03-23] MEDS: ACETAMINOPHEN 325 MG TABLET 650 MG PO (21:45)
[2021-03-23 22:00] VITALS: BP 129/62; PULSE 68; RESP 18; TEMP 36.6; O2SAT 97
[2021-03-24 06:00] VITALS: BP 119/69; PULSE 87; RESP 16; TEMP 36.6; O2SAT 100
[2021-03-24 07:26] LABS: INR 2.1
[2021-03-24] MEDS: lisinopriL 2.5 MG TABLET PO (08:11)
[2021-03-24] MEDS: VENLAFAXINE HCL XR 75 MG CAP.ER.24H 150 MG PO (08:11)
[2021-03-24] MEDS: GABAPENTIN 300 MG CAPSULE PO ×2 (08:11→16:14)
[2021-03-24] MEDS: PANTOPRAZOLE 40 MG TABLET PO (08:11)
[2021-03-24 08:12] VITALS: PULSE 71
[2021-03-24] MEDS: FERROUS SULFATE 324 MG TABLET PO (08:12)
[2021-03-24] MEDS: AMIODARONE HCL 100 MG TABLET PO (08:12)
[2021-03-24] MEDS: FLUTICASONE PROPIONATE 0.05% NA SPR 16 GM BTL (*BKC) 2 SPRAY NASAL (08:14)
[2021-03-24] MEDS: ACETAMINOPHEN 325 MG TABLET 650 MG PO ×2 (08:19→20:56)
[2021-03-24 10:15] LABS: Alveolar/Arterial O2 Gradient 19.5 mmHg; Base Excess ABG -1.9 mEq/l (+/-2.0); Fractional Inspired Oxygen 21 %; Oxygen Content ABG 16.1 %vol (16.0-22.0); Oxygen Saturation ABG 95.9 % (95.0-100.0); PO2 ABG 82.3 mmHg (80.0-100.0); PO2 FiO2 Ratio Arterial Blood 3.92 %; pH ABG 7.378 (7.350-7.450)
[2021-03-24 10:17] LABS: Device ROOM AIR; Modified Allen's Test Pass; Site Drawn RIGHT RADIAL
[2021-03-24] MEDS: LORazepam (*CRX) 0.5 MG TABLET PO ×2 (12:06→16:14)
[2021-03-24 14:00] VITALS: BP 123/62; PULSE 72; RESP 20; TEMP 36.1; O2SAT 99
--- NOTE | 2021-03-24 14:39 | PM.IMPN ---
Progress Note: A&P Assessment and Plan (1) Acute dyspnea: Code(s): R06.00 - Dyspnea, unspecified Status: Acute Assessment and Plan: -pt reports increasing sob x 2 weeks -CTA neg for PE, lungs clear no crackles no LE edema -Covid negative -patient maintains oxygen saturations of 99-100% on RA -did not qualify for oxygen with ambulation and home O2 study -Continue her COPD inhalers -does have hx of aortic valve replacement, was evaluated by Dr. Avery cardiology who states the velocities through her valve are actually improved compared to her echo in 2019 and are normal for a prosthetic heart valve. She does not believe there to be any significant valve stenosis by echo and does not believe that ALFRED is indicated. -ABG completely normal -at this point as everything is being ruled out with a completely normal workup, I am beginning to believe there is at least some degeree of anxiety involved. Will try some Ativan and see if there is any change in the sob. Pt voices fear over going home and dying because she cannot breathe. If she gets relief may consider starting something like Buspar and discharging her to f/u with pcp or psych. (2) COPD (chronic obstructive pulmonary disease): Code(s): J44.9 - Chronic obstructive pulmonary disease, unspecified Status: Chronic Assessment and Plan: Continue with patient's inhalers from home. (3) Depression: Code(s): F32.A - Depression, unspecified Status: Chronic Assessment and Plan: Continue with venlafaxine. Also adding Ativan as I feel her anxiety is the biggest contributing factor to her sob. (4) Hyperlipidemia: Code(s): E78.5 - Hyperlipidemia, unspecified Status: Acute Assessment and Plan: Continue with atorvastatin. (5) Mitral valve disorder: Code(s): I05.9 - Rheumatic mitral valve disease, unspecified Status: Acute Assessment and Plan: -recently had her Coumadin held because her INR was elevated -Patient's INR was low 1.6 on arrival, restarted her Coumadin. -up to 2.1 -continue daily monitoring (6) Atrial fibrillation: Code(s): I48.91 - Unspecified atrial fibrillation Status: Acute Assessment and Plan: Continue with Coumadin. Continue with amiodarone. The patient is currently in sinus rhythm. (7) HTN (hypertension): Code(s): I10 - Essential (primary) hypertension Status: Acute Assessment and Plan: Continue with lisinopril and amiodarone. Subjective Date/time seen: 03/24/21 14:39 Interval history: Pt is a 75 yo pt w/ hx of DM, COPD, mechanical aortic valve replacement, admitted to the hospital for dyspnea. Pt states she is still extremely short of breath with exertion and frequently feels like she cant breathe at all. She denies chest pain or palpitations. Does admit to intermittent epigastric pain consistent w/ her hiatal hernia. While going over reassuring test results patient frequently states that she cannot breathe and if she goes home where she lives alone she thinks she will stop breathing and . Review of Systems Review of Systems: General: Denies fevers, +weakness Eyes: Denies vision changes ENT: Denies nasal congestion or sore throat Respiratory: Denies cough, + shortness of breath Cardiovascular: Denies chest pain or lower extremity edema Gastrointestinal: + abdominal pain, denies vomiting or diarrhea Genitourinary: Denies dysuria Musculoskeletal: Denies back pain Neurological: Denies headache or motor weakness Integumentary: Denies rash Exam Narrative: General: No acute distress, non toxic appearing, obese, anxious Eyes: PERRL, no scleral icterus HEENT: NCAT, external ears normal, MMM Respiratory: No respiratory distress, Lungs CTA bilaterally, no wheezing Cardiovascular: RRR, no murmur Abdominal: Soft, minimal epigastric ttp, non distended, no rebound or guarding Musculos
[2021-03-24] MEDS: WARFARIN (*PBKC) 2 MG, WARFARIN (*PBKC) 5 MG 7 MG PO (16:14)
[2021-03-24] MEDS: ATORVASTATIN 10 MG TABLET PO (20:50)
[2021-03-24 21:28] VITALS: BP 118/66; PULSE 75; RESP 18; TEMP 36.6; O2SAT 98
[2021-03-25 05:58] VITALS: BP 118/73; PULSE 75; RESP 18; TEMP 36.6; O2SAT 96
[2021-03-25 07:11] LABS: INR 2.8; Prothrombin Time 28.5 Seconds (11.1-14.7)
[2021-03-25 09:02] VITALS: PULSE 75
[2021-03-25] MEDS: GABAPENTIN 300 MG CAPSULE PO (09:02)
[2021-03-25] MEDS: lisinopriL 2.5 MG TABLET PO (09:02)
[2021-03-25] MEDS: AMIODARONE HCL 100 MG TABLET PO (09:02)
[2021-03-25] MEDS: FLUTICASONE PROPIONATE 0.05% NA SPR 16 GM BTL (*BKC) 2 SPRAY NASAL (09:02)
[2021-03-25] MEDS: FERROUS SULFATE 324 MG TABLET PO (09:02)
[2021-03-25] MEDS: LORazepam (*CRX) 0.5 MG TABLET PO (09:02)
[2021-03-25] MEDS: VENLAFAXINE HCL XR 75 MG CAP.ER.24H 150 MG PO (09:02)
[2021-03-25] MEDS: PANTOPRAZOLE 40 MG TABLET PO (09:02)
--- NOTE | 2021-03-25 11:25 | PM.DS ---
DS: Admitting Diagnosis Discharge Date 03/25/21 Admitting Diagnosis dyspnea DS: Discharge Diagnosis Discharge Diagnosis (1) Acute dyspnea: Code(s): R06.00 - Dyspnea, unspecified Status: Acute Assessment and Plan: -pt reports increasing sob x 2 weeks -CTA neg for PE, lungs clear no crackles no LE edema -Covid negative -patient maintains oxygen saturations of 99-100% on RA -did not qualify for oxygen with ambulation and home O2 study -Continued her COPD inhalers, she has had clear lungs without wheezing -does have hx of aortic valve replacement, was evaluated by Dr. Carrera cardiology who states the velocities through her valve are actually improved compared to her echo in 2019 and are normal for a prosthetic heart valve. She does not believe there to be any significant valve stenosis by echo and does not believe that ALFRED is indicated. -ABG completely normal -at this point as everything is being ruled out with a completely normal workup, I am beginning to believe there is at least some degeree of anxiety involved. Will try some Ativan and see if there is any change in the sob. Pt voices fear over going home and dying because she cannot breathe. If she gets relief may consider starting something like Buspar and discharging her to f/u with pcp or psych. -pt had significant relief with 0.5 mg Ativan. suspect anxiety to be a large contributing factor to her dyspnea. I will send her with just a few low dose Xanax until she can follow up with her pcp to discuss detention anxiety medications. She is already on Effexor. (2) COPD (chronic obstructive pulmonary disease): Code(s): J44.9 - Chronic obstructive pulmonary disease, unspecified Status: Chronic Assessment and Plan: Continued with patient's inhalers from home. 99-100% on RA, no wheezing Will provide order for PFTs outpatient (3) Depression: Code(s): F32.A - Depression, unspecified Status: Chronic Assessment and Plan: Continued with venlafaxine. Also added Ativan as I left her anxiety is the biggest contributing factor to her sob. (4) Hyperlipidemia: Code(s): E78.5 - Hyperlipidemia, unspecified Status: Acute Assessment and Plan: Continued with atorvastatin. (5) Mitral valve disorder: Code(s): I05.9 - Rheumatic mitral valve disease, unspecified Status: Acute Assessment and Plan: -recently had her Coumadin held because her INR was elevated -Patient's INR was low 1.6 on arrival, restarted her Coumadin. -up to 2.8 -continue to follow up with her pcp for monitoring and dose adjustments (6) Atrial fibrillation: Code(s): I48.91 - Unspecified atrial fibrillation Status: Acute Assessment and Plan: Continued with Coumadin. Continued with amiodarone. The patient is currently in sinus rhythm. (7) HTN (hypertension): Code(s): I10 - Essential (primary) hypertension Status: Acute Assessment and Plan: Continued with lisinopril and amiodarone. (8) Anxiety: Code(s): F41.9 - Anxiety disorder, unspecified Status: Acute Assessment and Plan: As above DS: Summary Hospital Course Reason for hospitalization: Pt is a 75 yo pt w/ hx of DM, COPD, mechanical aortic valve replacement, admitted to the hospital for dyspnea. Please see HPI for further details. Hospital Course: Please see above for details of hospital course. Time Spent with Patient Time attestation: Total time spent providing and/or coordinating discharge services: 32 Exam Narrative: General: No acute distress, non toxic appearing, obese, anxious Eyes: PERRL, no scleral icterus HEENT: NCAT, external ears normal, MMM Respiratory: No respiratory distress, Lungs CTA bilaterally, no wheezing Cardiovascular: RRR, no murmur Abdominal: Soft, minimal epigastric ttp, non distended, no rebound or guarding Musculosk
[2021-03-25 13:50] VITALS: BP 147/57; PULSE 68; RESP 18; TEMP 36.5; O2SAT 98
[2021-03-25] MEDS: ACETAMINOPHEN 325 MG TABLET 650 MG PO (14:09)
== END 2021-03-25 14:40 | disposition home or self-care (01) ==
LOC: ANHED 11:56 → ANH3MEDSUR 17:31
PROVIDERS: Emergency Medicine; Nurse Practitioner; Physician Assistant; Admitting Provider Hospitalist; Emergency Provider Emergency Medicine; PCP Student in an Organized Health Care Education/Training Program; Visit Provider Internal Medicine
DX: R06.00 Dyspnea, unspecified (principal); J44.9 Chronic obstructive pulmonary disease, unspecified; I35.0 Nonrheumatic aortic (valve) stenosis; I05.9 Rheumatic mitral valve disease, unspecified; I10 Essential (primary) hypertension; E11.9 Type 2 diabetes mellitus without complications; I48.91 Unspecified atrial fibrillation; F32.A Depression, unspecified; Z95.2 Presence of prosthetic heart valve; Z79.51 Long term (current) use of inhaled steroids; Z79.01 Long term (current) use of anticoagulants; Z20.822 Contact with and (suspected) exposure to COVID-19
CPT/HCPCS: 36415; 36600; 71046; 71275; 80053; 81001; 82805; 82948; 83615; 83690; 83735; 84443; 84484; 85025; 85610; 85730; 93005; 94618; 99285; A9270; C8929; C9803; G0378; Q9957; Q9967; U0003; U0005

== ENCOUNTER 2021-09-10 08:40 | Outpatient (CLI) | payer OTHER, SELFPAY ==
--- NOTE | ~2021-09-10 | US_ITS ---
EXAMINATION: US right upper quadrant DATE: 09/10/2021 09:29 INDICATION: Right upper quadrant pain TECHNIQUE: Multiple grayscale and Doppler ultrasound images of the abdomen were obtained. COMPARISON: None available FINDINGS: Bowel gas obscures visualization of the pancreas. The visualized portions of the pancreas a re unremarkable. The liver demonstrates normal echogenicity and heterogeneous echotexture. There is m ild nodularity of the liver surface Normal hepatopetal flow in the main portal vein. A stone is prese nt in the gallbladder. There is no gallbladder wall thickening or pericholecystic fluid. The normal c ommon bile duct measures 5 mm. Sonographic Nguyen sign is positive. IMPRESSION: 1. Cholelithiasis and positive sonographic Nguyen sign without pericholecystic fluid or gallbladder w all thickening. Findings are equivocal for acute cholecystitis. Consider nuclear hepatobiliary scan. 2. Findings suggestive of cirrhosis. Reviewed, dictated and finalized at location B. IMPRESSION: 1. Cholelithiasis and positive sonographic Nguyen sign without pericholecystic fluid or gallbladder wall thickening. Findings are equivocal for acute cholecys titis. Consider nuclear hepatobiliary scan. 2. Findings suggestive of cirrhosis.
== END 2021-09-10 08:41 ==
PROVIDERS: PCP Student in an Organized Health Care Education/Training Program; Visit Provider Student in an Organized Health Care Education/Training Program
DX: R10.11 Right upper quadrant pain (principal); K80.20 Calculus of gallbladder without cholecystitis without obstruction
CPT/HCPCS: 76705

== ENCOUNTER 2021-10-02 14:41 | Observation (INO) | payer OTHER, SELFPAY ==
[2021-10-02] VITALS (13 sets, daily range): BP systolic 94–125; BP diastolic 37–50; PULSE 54–72; RESP 9–19; TEMP 36.2–36.6; O2SAT 95–99; BMI 32.6
--- NOTE | ~2021-10-02 | US_ITS ---
EXAMINATION: US venous doppler [facility] DATE: 10/03/2021 13:53 INDICATION: Lower limb swelling TECHNIQUE: Grayscale ultrasound images without and with compression and Doppler ultrasound images of the bilateral lower extremity veins were obtained. COMPARISON: None. FINDINGS: The visualized portions of right common femoral vein, profunda (deep) femoral vein, femoral vein, pop liteal vein, posterior tibial veins, peroneal veins, gastrocnemius vein and greater saphenous vein ou tflow are patent. The visualized portions of left common femoral vein, profunda femoral vein, femoral vein, popliteal v ein, posterior tibial veins, peroneal veins, gastrocnemius vein and greater saphenous vein outflow ar e patent. IMPRESSION: 1. No deep venous thrombosis in either lower limb. Reviewed, dictated and finalized at location A.
--- NOTE | ~2021-10-02 | XR_ITS ---
EXAMINATION: XR chest 1V portable INDICATION: Shortness of breath TECHNIQUE: Portable AP chest at 1524 hours COMPARISON: 03/21/2021 FINDINGS: Cardiomegaly is noted. The lungs are free of acute opacities. No pleural effusion or pneumo thorax. Changes of cardiac valve surgery are noted. IMPRESSION: 1. Cardiomegaly. Reviewed, dictated and finalized at location B. IMPRESSION: 1. Cardiomegaly.
--- NOTE | ~2021-10-02 | CT_ITS ---
EXAMINATION: CT abdomen pelvis wo con DATE: 10/03/2021 08:47 INDICATION: Abdominal pain TECHNIQUE: Computed tomography (CT) of the abdomen and pelvis was performed without intravenous contr ast. Automated exposure control and iterative reconstruction technique were employed. The dose-length product was 1243.75 mGy-cm. COMPARISON: 12/17/2018 FINDINGS: Mild of the bibasilar atelectasis/scarring. Thickening and mild cardiomegaly.. Dense mitral annular c alcification. Small amount of atherosclerotic coronary artery calcification along the circumflex jenifer nary artery. No pericardial or pleural effusion. Small fat-containing subxiphoid ventral hernia. Smal l region of focal parenchymal atrophy with coarse peripheral calcifications anteriorly at the junctio n of the left and right hepatic lobes. Spleen, pancreas, bilateral adrenal glands and left kidney are normal. One-2 mm nonobstructing stone at a middle calyx of the right kidney. Adductor jejunojejunal small diverticulum arising near the region of the ligament of Treitz. There is diverticulosis along t he descending and sigmoid colon. There is a small thickening and inflammatory stranding along the mid sigmoid colon consistent with diverticulitis. No drainable abscess or free intraperitoneal gas or fl uid. Normal appendix. No bowel obstruction. There is calcified atherosclerosis of the aorta and many of the other arteries. Prominent atherosclerotic plaque which appears hemodynamically significant at the common origin of the celiac axis and superior mesenteric artery. Mild to moderate lumbar and lowe r thoracic spondylosis. Moderate osteitis pubis. IMPRESSION: 1. Radiographically uncomplicated sigmoid diverticulitis. 2. Non-2 mm nonobstructing right renal stone. 3. Atherosclerotic calcifications with what appears to be hemodynamically significant stenosis at the common origin of the celiac axis and superior mesenteric artery. Reviewed, dictated and finalized at location A. IMPRESSION: 1. Radiographically uncomplicated sigmoid diverticulitis. 2. Non-2 mm nonobstructing right renal stone. 3. Atherosclerotic calcifications with what appears to be hemodynamically signi ficant stenosis at the common origin of the celiac axis and superior mesenteric artery.
--- NOTE | ~2021-10-02 | US_ITS ---
EXAMINATION: US renal BI DATE: 10/03/2021 09:09 INDICATION: Acute on chronic renal failure TECHNIQUE: Multiple ultrasound grayscale images of the kidneys were obtained. COMPARISON: None. FINDINGS: The right kidney measures 9.8 x 4.1 x 4.8 cm. The left kidney measures 9.5 x 4.6 x 4.2 cm. The kidney s demonstrate normal echogenicity. There is no hydronephrosis in either kidney. No stones identified . The bladder appears unremarkable but is partially decompressed which limits evaluation. IMPRESSION: 1. Normal kidneys without hydronephrosis. Reviewed, dictated and finalized at location A.
--- NOTE | 2021-10-02 14:55 | ECG_ITS ---
Measurements Intervals [place] Rate: 69 P: -43 IL: 194 QRS: -48 QRSD: 152 T: 78 QT: 417 QTc: 449 Interpretive Statements SINUS RHYTHM LEFT AXIS DEVIATION LEFT BUNDLE BRANCH BLOCK INFERIOR INFARCT OR DUE TO LBBB BASELINE ARTIFACT- I, III, AVR, AVL, AVF ABNORMAL ECG Electronically Signed On 10-02-2021 15:19:46 CDT by Emil Farrell D.O.
--- NOTE | 2021-10-02 15:02 | ED.SOB ---
HPI - SOB/Dyspnea General Chief Complaint: Recheck/Abnormal Lab/Rx Stated Complaint: shortness of breath Time Seen by Provider: 10/02/21 14:53 History of Present Illness HPI Narrative: Pt presents with worsening SOB on exertion over the last several days. Pt denies CP or fever. Pt went to doctor's office today and INR was elevated on finger stick test. Related Data Home Medications Medication Instructions Recorded Confirmed albuterol sulfate 90 mcg/actuation 2 puff inhalation QID PRN 01/09/19 03/21/21 aerosol inhaler Shortness Of Breath atorvastatin 10 mg tablet 10 mg PO HS 01/09/19 03/21/21 ferrous sulfate 325 mg (65 mg 325 mg PO DAILY 01/09/19 03/21/21 iron) tablet fluticasone propionate 50 2 spray intranasal DAILY 01/09/19 03/21/21 mcg/actuation nasal spray,suspension (Flonase Allergy Relief) gabapentin 300 mg capsule 300 mg PO BID 01/09/19 03/21/21 lisinopril 2.5 mg tablet 2.5 mg PO DAILY 01/09/19 03/21/21 omeprazole 20 mg capsule,delayed 20 mg PO DAILY 01/09/19 03/21/21 release venlafaxine 150 mg 150 mg PO DAILY 01/09/19 03/21/21 capsule,extended release 24 hr amiodarone 200 mg tablet 100 mg PO DAILY 08/08/20 03/21/21 warfarin 5 mg tablet 6 mg PO DAILY 08/08/20 03/21/21 Allergies Allergy/AdvReac Type Severity Reaction Status Date / Time adhesive tape Allergy Intermediate Blister Verified 03/21/21 11:27 bacitracin Allergy Mild Rash Verified 03/21/21 11:27 neomycin Allergy Mild Rash Verified 03/21/21 11:27 polymyxin B Allergy Mild Rash Verified 03/21/21 11:27 cortisone Allergy Unknown Unknown Verified 03/21/21 11:27 Review of Systems Review of Systems: All systems reviewed & are unremarkable except as noted in HPI and below PMFSH Past Medical History Medical History (Updated 10/02/21 @ 17:21 by Horacio Llamas III, ) Burst fracture of thoracic vertebra Chronic anticoagulation Chronic obstructive pulmonary disease Patient had a pulmonary function test on 02/24/2020 which was suggestive of COPD. Congestive heart failure Degenerative joint disease Depression Depression with anxiety Diverticulitis Herniated disc Hyperlipidemia Hypertension Kidney stone Obstructive sleep apnea on CPAP On amiodarone therapy Paroxysmal atrial fibrillation Restless leg syndrome Type 2 diabetes mellitus Surgical History Surgical History (Updated 10/02/21 @ 16:19 by Anisha Vega PA-C) History of ankle surgery ORIF left ankle fracture. History of bilateral cataract extraction History of hysterectomy History of mechanical aortic valve replacement (2003) St. Lj valve. History of right knee surgery Ligamentous repair. Family History Family History Mother Depression Family history of coronary artery disease Father Family history of diabetes mellitus in first degree relative Other Diabetes mellitus Family history of arthritis Family history of cardiovascular disease Social History Social History (Updated 10/02/21 @ 16:22 by Anisha Vega PA-C) Social History: The patient is and lives in her own home. 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 She has a small dog. She ambulates without assistance. Smoked remotely. No alcohol or illicit drug use. Surrogate decision maker: Code status: Spiritual care concerns: No Agree to blood products: Yes Exam Const: General: healthy appearing Nutritional Appearance: well nourished Orientation/consciousness: patient oriented x3 Limitations: no limitations HENMT: Head: normal to inspection Mouth: Yes Normal oral and palatal mucosa present Eyes: EOM: EOMs intact bilaterally Neck: Neck: normal visual inspection Chest: Chest palpation & inspection: normal inspection of the chest Resp: Effort & Inspection: normal respiratory effort Auscultation: clear to auscultation bilaterally and diminished lung sounds Cardio: Rate: regular rate Rhythm: regular rhy
[2021-10-02 15:27] LABS: Basophils Absolute Auto 0.1 K/mm3 (0.0-0.1); Basophils Percent Auto 0.8 % (0.2-1.2); Eosinophils Absolute Auto 0.1 K/mm3 (0-0.3); Eosinophils Percent Auto 1.4 % (0-4.4); Hematocrit 31.6 % (37.0-47.0); Hemoglobin 9.7 g/dL (12.0-15.0); Immature Granulocyte Absolute 0.01 K/mm3 (0.00-0.031); Immature Granulocyte Percent A 0.2 % (0-0.5); Lymphocytes Absolute Auto 1.28 K/mm3 (0.9-3.2); Mean Corpuscular HGB Conc 30.7 g/dl (32-36); Mean Corpuscular Hemoglobin 31.9 pg (26-34); Mean Corpuscular Volume 103.9 fl (80-100); Monocytes Absolute Auto 0.8 K/mm3 (0.1-0.6); Monocytes Percent Auto 13.1 % (2.6-8.5); Neutrophils Absolute Auto 4.1 K/mm3 (1.3-6.7); Neutrophils Percent Auto 64.5 % (45.5-73.1); Platelet Count Result 225 k/mm3 (150-375); Red Blood Count 3.04 M/mm3 (4.2-5.4); Red Cell Distribution Width 12.4 % (11.5-14.5); White Blood Count 6.4 K/mm3 (4.5-10.0)
[2021-10-02] MEDS: IPRATROPIUM BR 0.02% INH SOLN 0.5 MG/2.5 ML VIAL INHALATION (15:33)
[2021-10-02] MEDS: ALBUTEROL SULFATE NEB 2.5 MG/3 ML INH 5 MG INHALATION (15:34)
[2021-10-02 15:37] LABS: Alanine Aminotransferase 13 U/L (6-35); Alanine Aminotransferase 14 U/L (6-35); Albumin Level 3.7 g/dL (3.5-5.1); Albumin Level 3.8 g/dL (3.5-5.1); Alkaline Phosphatase 61 U/L (38-126); Alkaline Phosphatase 62 U/L (38-126); Anion Gap 10 mmol/L (8-16); Anion Gap 8 mmol/L (8-16); Aspartate Amino Transferase 21 U/L (14-36); Aspartate Amino Transferase 22 U/L (14-36); Bilirubin,Total 0.5 mg/dL (0.2-1.3); Blood Urea Nitrogen 38 mg/dL (7-17); Calcium 9.3 mg/dL (8.4-10.2); Calcium 9.7 mg/dL (8.4-10.2); Carbon Dioxide 23 mmol/L (22-30); Chloride 104 mmol/L (98-107); Estimated CRCL calculation 18 ml/min; Estimated Glomerular Filt Rate 19; Glucose 92 mg/dL (65-110); Glucose 93 mg/dL (65-110); Magnesium 1.8 mg/dL (1.6-2.3); Potassium 5.3 mmol/L (3.4-5.0); Sodium 135 mmol/L (137-145); Sodium 137 mmol/L (137-145)
[2021-10-02 15:38] LABS: Prothrombin Time 47.4 Seconds (11.1-14.7)
[2021-10-02 15:39] LABS: Partial Thromboplastin Time 92.1 SECONDS (22.3-36.8)
[2021-10-02 15:49] LABS: INR 5.3
[2021-10-02 15:51] LABS: NT Pro B Type Natriuretic Pept 8730 pg/mL (5-100); Troponin I 0.035 ng/mL (0.000-0.034)
[2021-10-02] MEDS: SODIUM CHLORIDE 0.9% IV 500 ML 999 ML IV CONT (16:36)
[2021-10-02 16:42] LABS: SARS-CoV-2 RNA PCR Negative
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
--- NOTE | 2021-10-02 17:45 | ADMGEN ---
This patient, Radha Huynh, was admitted to [address] [facility] Surg Room 312-01. Patient/family oriented to hospital policies and general routines including ID bracelet, bed and alarms, visiting hours, pain management, procedures, bathroom and other care routines, personal items, smoking policy, room service/diet, and visiting hours. Information on how to activate the Rapid Response Team has been discussed. Patient/Family are encouraged to report perceived risks to care and to ask questions if they do not understand what they are told or what they should do.
[2021-10-02 20:11] LABS: Troponin I 0.025 ng/mL (0.000-0.034)
[2021-10-02 21:51] LABS: Glucose Point of Care 103 mg/dl (65-105)
[2021-10-02] MEDS: SODIUM CHLORIDE 0.9% IV 1,000 ML 100 ML IV CONT (22:25)
[2021-10-02] MEDS: ACETAMINOPHEN 325 MG TABLET 650 MG PO (22:26)
[2021-10-02] MEDS: ALPRAZolam (*CRX) 0.25 MG TABLET PO (22:26)
[2021-10-02 22:48] LABS: Immature Reticulocyte Fraction 18.8 % (3.0-15.9); Reticulocyte Hemoglobin Conten 27.8 pg (28.2-35.7); Reticulocyte Percent 1.69 % (0.7-4.3); Reticulocytes Absolute 0.05 B/L (32.2-175.7)
[2021-10-02 22:57] LABS: Anion Gap 10 mmol/L (8-16); Blood Urea Nitrogen 39 mg/dL (7-17); Calcium 9.3 mg/dL (8.4-10.2); Carbon Dioxide 20 mmol/L (22-30); Chloride 107 mmol/L (98-107); Estimated CRCL calculation 17 ml/min; Estimated Glomerular Filt Rate 17; Glucose 94 mg/dL (65-110); Potassium 4.7 mmol/L (3.4-5.0); Sodium 137 mmol/L (137-145)
[2021-10-02 23:09] LABS: Troponin I 0.028 ng/mL (0.000-0.034)
[2021-10-02 23:44] LABS: CRP 3.2 mg/dL (<1.0); Creatine Kinase 49 U/L (30-135)
[2021-10-02 23:45] LABS: Iron 32 ug/dL (37-170)
[2021-10-02] MEDS: HYDROcodone/acetaminophen (*CRX) 5-325 MG TABLET 1 TAB PO (23:52)
[2021-10-03] VITALS (11 sets, daily range): BP systolic 95–120; BP diastolic 46–58; PULSE 55–83; RESP 14–18; TEMP 36.2–36.6; O2SAT 97–100
[2021-10-03 00:02] LABS: Percent Iron Saturation 13 % (20-50)
[2021-10-03 00:25] LABS: Thyroid Stimulating Hormone Reflex < 0.015 uIU/mL (0.465-4.68)
[2021-10-03 00:44] LABS: Erythrocyte Sedimentation Rate 109 mm/hr (0-20)
[2021-10-03 00:49] LABS: Folic Acid > 20.0 ng/mL (2.76->20)
[2021-10-03 02:21] LABS: Calcium Oxalate Crystals Urine Present /hpf; Mucus Urine Rare /lpf; Squamous Epithelial Cell Urine Many /hpf (Few)
[2021-10-03 02:27] LABS: Add Urine Microscopic? YES; Appearance Urine Clear (Clear); Bilirubin Urine 1+ (Negative); Blood Urine Trace (Negative); Color Urine Yellow (Yellow); Glucose Urine UA Negative (Negative); Ketones Urine Trace mg/dL (Negative); Leukocyte Esterase Ur Negative LEU/UL (Negative); Nitrate Urine Negative (Negative); Protein Urine Trace mg/dL (Negative); Urobilinogen Urine 0.2 mg/dL (<2.0)
[2021-10-03 04:21] LABS: Eosinophil Urine None Seen % (None Seen)
[2021-10-03] MEDS: ACETAMINOPHEN 325 MG TABLET 650 MG PO (05:02)
[2021-10-03 05:03] LABS: Creatinine Urine 184.3 mg/dL
[2021-10-03 05:15] LABS: Free T4 Free Thyroxine Reflex 5.44 ng/dL (0.78-2.19)
[2021-10-03 05:15] LABS: Potassium Urine Random 42.6 meq/L; Sodium Urine Random 15 meq/L
[2021-10-03] MEDS: HYDROcodone/acetaminophen (*CRX) 5-325 MG TABLET 1 TAB PO ×3 (06:56→23:45)
[2021-10-03] MEDS: VENLAFAXINE HCL XR 75 MG CAP.ER.24H 150 MG PO (09:17)
[2021-10-03] MEDS: GABAPENTIN 300 MG CAPSULE PO ×2 (09:17→17:16)
[2021-10-03] MEDS: FERROUS SULFATE 324 MG TABLET PO (09:17)
[2021-10-03] MEDS: AMIODARONE HCL 100 MG TABLET PO (09:17)
[2021-10-03] MEDS: PANTOPRAZOLE 40 MG TABLET PO (09:17)
--- NOTE | 2021-10-03 12:04 | PM.IMPN ---
Progress Note: A&P Assessment and Plan (1) Acute kidney injury superimposed on chronic kidney disease: Code(s): N17.9 - Acute kidney failure, unspecified; N18.9 - Chronic kidney disease, unspecified Status: Acute Assessment and Plan: Precipitating etiology is not clear at this time though with her soft blood pressures this may very well be due to dehydration (she reports eating and drinking as usual though her friend at bedside states she is probably not been eating near as much due to abdominal pain). Likely related dehydration. IV fluids started. Monitor. Renal consult (2) Hypotension: Code(s): I95.9 - Hypotension, unspecified Status: Acute Assessment and Plan: Blood pressures have been running soft and she does endorse lightheadedness over the past week or so. Hold antihypertensives and cautiously hydrate as detailed above. No signs or symptoms to suggest acute underlying infection. (3) Macrocytic anemia: Code(s): D53.9 - Nutritional anemia, unspecified Status: Acute Assessment and Plan: Check iron studies as well as B12 and folates. With her supratherapeutic INR we will also check stool for occult blood. (4) Supratherapeutic INR: Code(s): R79.1 - Abnormal coagulation profile Status: Acute Assessment and Plan: Warfarin on hold and should be resumed once her INR is around 3 given her mechanical aortic valve. (5) Hyperkalemia: Code(s): E87.5 - Hyperkalemia Status: Acute Assessment and Plan: Monitor (6) Congestive heart failure: Code(s): I50.9 - Heart failure, unspecified Status: Acute Assessment and Plan: Echocardiogram earlier this year showed grade 1 diastolic dysfunction and LV systolic function at the lower end of normal. She is clinically compensated in fact a bit dry at this time. Monitor volume status closely while hydrating. (7) Paroxysmal atrial fibrillation: Code(s): I48.0 - Paroxysmal atrial fibrillation Status: Acute Assessment and Plan: Currently in a sinus bradycardia. Continue amiodarone. (8) Abdominal pain: Code(s): R10.9 - Unspecified abdominal pain Status: Acute Assessment and Plan: An ongoing problem. She recently finished Augmentin for possible acute cholecystitis and she has an upcoming appointment with a surgeon. No focal findings noted on exam but she is diffusely tender throughout the abdomen. CT of the abdomen and pelvis has been to further evaluate. Subjective Date/time seen: 10/03/21 12:04 Doing okay. Complaining of some right lower extremity swelling. recent trauma as well. Exam Narrative: General: Well-developed female supine in bed in no acute distress. Weight: 86.3 kg. BMI: 32.7. HEENT: Wearing glasses. PERRL, EOMI. Conjunctivae anicteric. Tacky mucous membranes. Neck: Supple. No jugular venous distention. Respiratory: Respirations are even and nonlabored. Lungs are clear to auscultation bilaterally. Cardiovascular: Bradycardic with normal S1-S2. Systolic murmur at upper sternal border with mechanical click. Gastrointestinal: Abdomen is soft, obese, nontender, and nondistended with positive bowel sounds. She is diffusely tender to palpation throughout the abdomen. Bladder seems perhaps a bit distended. No guarding or rebound tenderness. Negative Nguyen sign. No tenderness to palpation over McBurney's point. Skin: Warm and dry. Decreased skin turgor. Bruising on the anterior shins. Extremities: No cyanosis, clubbing, or significant edema. Radial and pedal pulses intact. Neurological: Alert. Cranial nerves 2-12 are grossly intact. No gross focal deficits to casual conversation. Psychiatric: Pleasant and cooperative with normal mood and affect. Judgment and insight intact. Objective Data Vital Signs Vital Signs: Vital Signs - 24 hr 10/02/21 14:45 10/02/21 15:36 10/02/21 15:43 Temperature 98 F Pulse
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
[2021-10-03 13:40] LABS: Creatine Kinase 42 U/L (30-135)
[2021-10-03 13:50] LABS: Complement C3 118 mg/dL (88-165)
[2021-10-03 14:12] LABS: Cortisol Random 3.72 ug/dL
[2021-10-03 18:49] LABS: Appearance Urine Clear (Clear); Bilirubin Urine Negative (Negative); Blood Urine Negative (Negative); Glucose Urine UA Negative (Negative); Ketones Urine Negative (Negative); Leukocyte Esterase Ur Trace LEU/UL (NEGATIVE); Nitrate Urine Negative (Negative); Protein Urine Negative (Negative); Specific Grav Ur 1.015 (1.001-1.035); Urobilinogen Urine 0.2 mg/dL (<2.0)
[2021-10-03 19:00] LABS: Bacteria Urine Trace /hpf; RBC Urine 0-2 /hpf (0-2); Squamous Epithelial Cell Urine Rare /hpf (Few); WBC Urine 0-3 /hpf (0-3)
[2021-10-03 19:05] LABS: Add Urine Microscopic? YES; Color Urine Light Yellow (Yellow)
[2021-10-03 19:08] LABS: Creatinine Urine 74.5 mg/dL; Total Protein Urine Random 11 mg/dL; Ur Ttl Prot Creatinine Ratio 0.15 mg/mg (0-0.20)
[2021-10-03 19:17] LABS: Sodium Urine Random 7 meq/L
[2021-10-03] MEDS: ATORVASTATIN 10 MG TABLET PO (21:45)
[2021-10-03 21:48] LABS: Glucose Point of Care 82 mg/dl (65-105)
--- NOTE | 2021-10-03 22:17 | P.PNCROSS_ITS ---
Event Note Event Note Event Note: Call received at 22:15 with positive blood cultures. Gram-positive cocci in clu sters growing anaerobic and anaerobic bottles in 1 set of cultures. Patient's chart was reviewed. She completed a course of Augmentin earlier this month for suspected cholecystitis but she has no signs or symptoms of active infection at this time. Specifically there are no signs of skin or soft tissue infections, pneumonia, joint swelling, etc.. Given her age and comorbidities however I will start her on vancomycin pending identification and sensitivities.
[2021-10-03] MEDS: ALPRAZolam (*CRX) 0.25 MG TABLET PO (23:46)
[2021-10-04] VITALS (12 sets, daily range): BP systolic 101–121; BP diastolic 42–55; PULSE 64–87; RESP 16–18; TEMP 36.4–36.9; O2SAT 94–98
[2021-10-04] MEDS: HYDROcodone/acetaminophen (*CRX) 5-325 MG TABLET 1 TAB PO ×2 (05:52→21:38)
[2021-10-04 06:24] LABS: Hematocrit 28.9 % (37.0-47.0); Mean Corpuscular HGB Conc 31.1 g/dl (32-36); Mean Corpuscular Hemoglobin 31.7 pg (26-34); Mean Corpuscular Volume 101.8 fl (80-100); Mean Platelet Volume 12.9 fl (7.4-10.4); Platelet Count Result 194 k/mm3 (150-375); Red Blood Count 2.84 M/mm3 (4.2-5.4); Red Cell Distribution Width 12.2 % (11.5-14.5); White Blood Count 4.5 K/mm3 (4.5-10.0)
[2021-10-04 06:30] LABS: INR 4.7; Prothrombin Time 42.7 Seconds (11.1-14.7)
[2021-10-04 06:57] LABS: Albumin Level 2.8 g/dL (3.5-5.1); Anion Gap 6 mmol/L (8-16); Blood Urea Nitrogen 35 mg/dL (7-17); Carbon Dioxide 22 mmol/L (22-30); Chloride 107 mmol/L (98-107); Estimated CRCL calculation 29 ml/min; Estimated Glomerular Filt Rate 31; Glucose 71 mg/dL (65-110); Phosphorus 3.3 mg/dL (2.5-4.5); Potassium 4.9 mmol/L (3.4-5.0); Sodium 135 mmol/L (137-145)
[2021-10-04 08:38] LABS: Glucose Point of Care 60 mg/dl (65-105)
[2021-10-04] MEDS: AMIODARONE HCL 100 MG TABLET PO (09:54)
[2021-10-04] MEDS: VENLAFAXINE HCL XR 75 MG CAP.ER.24H 150 MG PO (09:54)
[2021-10-04 09:55] LABS: Glucose Point of Care 114 mg/dl (65-105)
[2021-10-04] MEDS: AMOXICILLIN/CLAVULANATE K 875-125 MG TAB 1 TABLET PO ×2 (09:56→21:33)
[2021-10-04] MEDS: FERROUS SULFATE 324 MG TABLET PO (09:56)
[2021-10-04] MEDS: GABAPENTIN 300 MG CAPSULE PO ×2 (09:56→17:25)
[2021-10-04] MEDS: PANTOPRAZOLE 40 MG TABLET PO (09:56)
[2021-10-04 11:16] LABS: Glucose Point of Care 161 mg/dl (65-105)
--- NOTE | 2021-10-04 11:41 | PM.PNNEP ---
Progress Note: A&P Additional Plan 1. Radha has chronic kidney disease. Baseline creatinine is 1.3-1.5. Renal ultrasound shows borderline kidney size but no echogenicity. Urinalysis is bland. Urine electrolytes show pre renal azotemia. Most likely this is due to diabetes and hypertension. There are other causes however including obstruction, interstitial disease, infiltrative disease, glomerulonephritis, stones, cystic disease is, and vascular diseases. Most of these are unlikely in this clinical scenario however will check serology, immuno fix, renal ultrasound 2. The patient has acute kidney injury. Renal ultrasound shows borderline kidney size but no echogenicity. Urinalysis is bland. Urine electrolytes show pre renal azotemia. Total CK is normal. Timing of the rise in the creatinine is not clear whether this is chronic, subacute, or acute. She does have pre renal azotemia on her electrolytes so I suspect that there is at least a component of OLIVE. Diverticulitis can cause ATN. She seems to have a component of dehydration as well. Her soft blood pressures may have played a role as well. Will give her some IV fluids overnight and see how her creatinine does. Discussed with Dr. Aguilar. 3. The patient has hypertension. Her blood pressure is a little better. 4. The patient has diabetes. On insulin plus sliding scale per hospitalist. 5. Patient has an artificial heart valve. This sounds pretty good right now. 6. The patient has sleep apnea and uses a CPAP machine. 7. Patient has diverticulitis Per CT. management per hospitalist. Subjective Date/time seen: 10/04/21 11:41 Interval history: The patient feels about the same today. She does get somewhat dyspneic when walking to the bathroom. Her belly pain is about the same. No chest pain. No skin rash or itching. Review of Systems Cardiovascular: Cardiovascular: Reports no additional cardiovascular complaints Respiratory: Respiratory: Reports no additional respiratory complaints Gastrointestinal: Gastrointestinal: Reports no additional gastrointestinal complaints Genitourinary: Genitourinary: Reports no additional female genitourinary complaints Exam Narrative: WDWN in NAD skin no rash head ncat lungs clear cor reg no rub abd BS+ nontender and soft ext no edema. Objective Data Vital Signs Vital Signs: Vital Signs - 24 hr 10/03/21 14:00 10/03/21 16:03 10/03/21 12:00 Temperature 36.6 C Pulse Rate 57 L 58 L Respiratory Rate 14 Blood Pressure 112/53 L Pulse Oximetry 98 Oxygen Delivery Room Air 10/03/21 16:00 10/03/21 20:00 10/03/21 20:00 Temperature 36.4 C L Pulse Rate 55 L 55 L 56 L Respiratory Rate 14 18 Blood Pressure 116/46 L Pulse Oximetry 98 99 Oxygen Delivery Room Air 10/03/21 20:40 10/03/21 20:41 10/03/21 22:00 Temperature 36.3 C L 36.2 C L 36.4 C L Pulse Rate 58 L 69 56 L Respiratory Rate 18 16 16 Blood Pressure 103/58 L 120/52 L 116/46 L Pulse Oximetry 100 100 99 Oxygen Delivery 10/03/21 20:00 10/04/21 00:00 10/04/21 06:00 Temperature 36.7 C Pulse Rate 68 67 68 Respiratory Rate 18 Blood Pressure 121/49 L Pulse Oximetry 94 Oxygen Delivery 10/04/21 04:00 10/04/21 09:54 10/04/21 08:00 Temperature Pulse Rate 71 70 Respiratory Rate Blood Pressure Pulse Oximetry Oxygen Delivery Room Air Intake/Output Intake/Output: Intake & Output 10/01/21 10/02/21 10/03/21 10/04/21 23:59 23:59 23:59 23:59 Intake Total 740 1630 550 Output Total 30 1275 950 Balance 710 355 -400 Meds/Results Medications: Active Medications Generic Name Dose Route Start Last Admin Trade Name Freq PRN Reason Stop Dose Admin Acetaminophen 650 mg 10/02/21 21:56 10/03/21 05:02 Acetaminophen 325 Mg Tablet PO 650 mg Q6H PRN Administration Mild Pain (1-3) or Fever Hydrocodone Bitart/Acetaminophen 1 tab 10/02/21 22:32 10/04
--- NOTE | 2021-10-04 12:05 | PM.IMPN ---
Progress Note: A&P Assessment and Plan (1) Acute kidney injury superimposed on chronic kidney disease: Code(s): N17.9 - Acute kidney failure, unspecified; N18.9 - Chronic kidney disease, unspecified Status: Acute Assessment and Plan: Likely related from dehydration. Creatinine is improved. Monitor. (2) Hypotension: Code(s): I95.9 - Hypotension, unspecified Status: Acute Assessment and Plan: Improved (3) Macrocytic anemia: Code(s): D53.9 - Nutritional anemia, unspecified Status: Acute Assessment and Plan: Check iron studies as well as B12 and folates. With her supratherapeutic INR we will also check stool for occult blood. (4) Supratherapeutic INR: Code(s): R79.1 - Abnormal coagulation profile Status: Acute Assessment and Plan: Warfarin on hold and should be resumed once her INR is around 3 given her mechanical aortic valve. (5) Hyperkalemia: Code(s): E87.5 - Hyperkalemia Status: Acute Assessment and Plan: Monitor (6) Congestive heart failure: Code(s): I50.9 - Heart failure, unspecified Status: Acute Assessment and Plan: Echocardiogram earlier this year showed grade 1 diastolic dysfunction and LV systolic function at the lower end of normal. She is clinically compensated in fact a bit dry at this time. Monitor volume status closely while hydrating. (7) Paroxysmal atrial fibrillation: Code(s): I48.0 - Paroxysmal atrial fibrillation Status: Acute Assessment and Plan: Currently in a sinus bradycardia. Continue amiodarone. (8) Abdominal pain: Code(s): R10.9 - Unspecified abdominal pain Status: Acute Assessment and Plan: Likely from diverticulitis. Antibiotics (9) Bacteremia: Code(s): R78.81 - Bacteremia Status: Acute Assessment and Plan: IV vanc. Await ID and sensitivity Subjective Date/time seen: 10/04/21 12:05 Mild abdominal pain. Much better. Exam Narrative: General: Well-developed female supine in bed in no acute distress. Weight: 86.3 kg. BMI: 32.7. HEENT: Wearing glasses. PERRL, EOMI. Conjunctivae anicteric. Tacky mucous membranes. Neck: Supple. No jugular venous distention. Respiratory: Respirations are even and nonlabored. Lungs are clear to auscultation bilaterally. Cardiovascular: Bradycardic with normal S1-S2. Systolic murmur at upper sternal border with mechanical click. Gastrointestinal: Abdomen is soft, obese, nontender, and nondistended with positive bowel sounds. She is diffusely tender to palpation throughout the abdomen. Bladder seems perhaps a bit distended. No guarding or rebound tenderness. Negative Nguyen sign. No tenderness to palpation over McBurney's point. Skin: Warm and dry. Decreased skin turgor. Bruising on the anterior shins. Extremities: No cyanosis, clubbing, or significant edema. Radial and pedal pulses intact. Neurological: Alert. Cranial nerves 2-12 are grossly intact. No gross focal deficits to casual conversation. Psychiatric: Pleasant and cooperative with normal mood and affect. Judgment and insight intact. Objective Data Vital Signs Vital Signs: Vital Signs - 24 hr 10/03/21 14:00 10/03/21 16:03 10/03/21 16:00 Temperature 97.9 F Pulse Rate 57 L 55 L Respiratory Rate 14 Blood Pressure 112/53 L Pulse Oximetry 98 Oxygen Delivery Room Air 10/03/21 20:00 10/03/21 20:00 10/03/21 20:40 Temperature 97.5 F L 97.4 F L Pulse Rate 55 L 56 L 58 L Respiratory Rate 14 18 18 Blood Pressure 116/46 L 103/58 L Pulse Oximetry 98 99 100 Oxygen Delivery Room Air 10/03/21 20:41 10/03/21 22:00 10/03/21 20:00 Temperature 97.1 F L 97.5 F L Pulse Rate 69 56 L 68 Respiratory Rate 16 16 Blood Pressure 120/52 L 116/46 L Pulse Oximetry 100 99 Oxygen Delivery 10/04/21 00:00 10/04/21 06:00 10/04/21 04:00 Temperature 98.0 F Pulse Rate 67 68 71 Respir
[2021-10-04] MEDS: ACETAMINOPHEN 325 MG TABLET 650 MG PO (15:43)
[2021-10-04] MEDS: ALPRAZolam (*CRX) 0.25 MG TABLET PO ×2 (15:44→21:38)
[2021-10-04 16:23] LABS: Glucose Point of Care 88 mg/dl (65-105)
[2021-10-04] MEDS: DICLOFENAC SODIUM 1% 100 GM GEL (*BKC) 1 APPLIC TOPICAL ×2 (17:25→21:31)
[2021-10-04] MEDS: ATORVASTATIN 10 MG TABLET PO ×2 (21:33)
[2021-10-04 22:00] LABS: Glucose Point of Care 137 mg/dl (65-105)
[2021-10-05] VITALS (9 sets, daily range): BP systolic 119–138; BP diastolic 44–58; PULSE 69–95; RESP 16; TEMP 36.2; O2SAT 96–98
[2021-10-05 08:16] LABS: Glucose Point of Care 85 mg/dl (65-105)
[2021-10-05] MEDS: AMIODARONE HCL 100 MG TABLET PO (08:45)
[2021-10-05] MEDS: VENLAFAXINE HCL XR 75 MG CAP.ER.24H 150 MG PO (08:47)
[2021-10-05] MEDS: AMOXICILLIN/CLAVULANATE K 875-125 MG TAB 1 TABLET PO (08:47)
[2021-10-05] MEDS: PANTOPRAZOLE 40 MG TABLET PO (08:47)
[2021-10-05] MEDS: DICLOFENAC SODIUM 1% 100 GM GEL (*BKC) 1 APPLIC TOPICAL ×2 (08:47→12:16)
[2021-10-05] MEDS: ALPRAZolam (*CRX) 0.25 MG TABLET PO (08:47)
[2021-10-05] MEDS: GABAPENTIN 300 MG CAPSULE PO (08:47)
[2021-10-05] MEDS: FERROUS SULFATE 324 MG TABLET PO (08:47)
[2021-10-05] MEDS: ACETAMINOPHEN 325 MG TABLET 650 MG PO (08:47)
[2021-10-05 10:26] LABS: Anion Gap 3 mmol/L (8-16); Blood Urea Nitrogen 22 mg/dL (7-17); Calcium 9.4 mg/dL (8.4-10.2); Carbon Dioxide 27 mmol/L (22-30); Chloride 111 mmol/L (98-107); Estimated CRCL calculation 45 ml/min; Estimated Glomerular Filt Rate 54; Glucose 151 mg/dL (65-110); Potassium 5.1 mmol/L (3.4-5.0); Sodium 141 mmol/L (137-145)
[2021-10-05 11:45] LABS: Glucose Point of Care 150 mg/dl (65-105)
--- NOTE | 2021-10-05 12:02 | PM.PNNEP ---
Progress Note: A&P Additional Plan 1. Radha has chronic kidney disease. Baseline creatinine is 1.3-1.5. Renal ultrasound shows borderline kidney size but no echogenicity. Urinalysis is bland. Urine electrolytes show pre renal azotemia. Most likely this is due to diabetes and hypertension. rest of the evaluation is underway. 2. The patient has acute kidney injury. Renal ultrasound shows borderline kidney size but no echogenicity. Urinalysis is bland. Urine electrolytes show pre renal azotemia. Total CK is normal. Timing of the rise in the creatinine is not clear whether this is chronic, subacute, or acute. She does have pre renal azotemia on her electrolytes so I suspect that there is at least a component of OLIVE. Diverticulitis can cause ATN. She seems to have a component of dehydration as well. Her soft blood pressures may have played a role as well. Her creatinine has come down to normal with the IV fluids. 3. The patient has hypertension. Her blood pressure is under good control 4. The patient has diabetes. On insulin plus sliding scale per hospitalist. 5. Patient has an artificial heart valve. This sounds pretty good right now. 6. The patient has sleep apnea and uses a CPAP machine. 7. Patient has diverticulitis Per CT. management per hospitalist. Subjective Date/time seen: 10/05/21 12:02 Interval history: The patient feels about the same today. Her belly pain is about the same. No chest pain. No skin rash or itching. Exam Narrative: WDWN in NAD skin no rash head ncat lungs clear bilaterally cor reg no rub abd BS+ minimally tender and soft ext no edema. Objective Data Vital Signs Vital Signs: Vital Signs - 24 hr 10/04/21 14:00 10/04/21 16:00 10/04/21 19:33 Temperature 36.9 C 36.4 C Pulse Rate 64 75 87 Respiratory Rate 18 16 Blood Pressure 101/42 L 116/50 L Pulse Oximetry 98 97 Oxygen Delivery 10/04/21 19:35 10/04/21 19:40 10/04/21 20:00 Temperature Pulse Rate 80 86 75 Respiratory Rate Blood Pressure 113/55 L 121/46 L Pulse Oximetry Oxygen Delivery 10/05/21 00:00 10/05/21 04:35 10/05/21 04:00 Temperature 36.2 C L Pulse Rate 77 73 70 Respiratory Rate 16 Blood Pressure 119/47 L Pulse Oximetry 97 Oxygen Delivery 10/05/21 08:45 10/05/21 09:35 10/05/21 09:40 Temperature Pulse Rate 83 79 86 Respiratory Rate Blood Pressure 125/44 L 138/53 L Pulse Oximetry 98 97 Oxygen Delivery 10/05/21 09:44 10/05/21 08:00 10/05/21 08:00 Temperature Pulse Rate 95 87 Respiratory Rate Blood Pressure 129/58 L Pulse Oximetry 96 Oxygen Delivery Room Air Intake/Output Intake/Output: Intake & Output 10/02/21 10/03/21 10/04/21 10/05/21 23:59 23:59 23:59 23:59 Intake Total 740 1630 2050 440 Output Total 30 1275 1500 900 Balance 710 355 550 -460 Meds/Results Medications: Active Medications Generic Name Dose Route Start Last Admin Trade Name Freq PRN Reason Stop Dose Admin Acetaminophen 650 mg 10/02/21 21:56 10/05/21 08:47 Acetaminophen 325 Mg Tablet PO 650 mg Q6H PRN Administration Mild Pain (1-3) or Fever Hydrocodone Bitart/Acetaminophen 1 tab 10/02/21 22:32 10/04/21 21:38 Hydrocodone/Acetaminophen (*Crx) 5-325 Mg Tablet PO 1 tab Q6H PRN Administration Pain Rated 4-6 Albuterol 2 puff 10/02/21 22:00 Albuterol Sulfate (*Sp) Aerosol 1 Puff INHALATION QID PRN Shortness Of Breath Alprazolam 0.25 mg 10/02/21 22:00 10/05/21 08:47 Alprazolam (*Crx) 0.25 Mg Tablet PO 0.25 mg BID PRN Administration anxiety Amiodarone HCl 100 mg 10/03/21 09:00 10/05/21 08:45 Amiodarone Hcl 100 Mg Tablet PO 100 mg DAILY IAN Administration Amoxicillin/Clavulanate Potassium 1 tablet 10/04/21 09:00 10/05/21 08:47 Amoxicillin/Clavulanate K 875-125 Mg Tab PO 1 tablet Q12HR IAN Administration Atorvastatin Calcium 10 mg
--- NOTE | 2021-10-05 12:21 | PM.DS ---
DS: Admitting Diagnosis Discharge Date October 05, 2021 Admitting Diagnosis Diverticulitis DS: Discharge Diagnosis Discharge Diagnosis (1) Acute kidney injury superimposed on chronic kidney disease: Code(s): N17.9 - Acute kidney failure, unspecified; N18.9 - Chronic kidney disease, unspecified Status: Acute Assessment and Plan: Improved (2) Hypotension: Code(s): I95.9 - Hypotension, unspecified Status: Acute Assessment and Plan: Improved (3) Supratherapeutic INR: Code(s): R79.1 - Abnormal coagulation profile Status: Acute Assessment and Plan: Will resume home anticoagulation (4) Hyperkalemia: Code(s): E87.5 - Hyperkalemia Status: Acute Assessment and Plan: Monitor (5) Congestive heart failure: Code(s): I50.9 - Heart failure, unspecified Status: Acute Assessment and Plan: Echocardiogram earlier this year showed grade 1 diastolic dysfunction and LV systolic function at the lower end of normal. She is clinically compensated in fact a bit dry at this time. Monitor volume status closely while hydrating. Compensated. (6) Paroxysmal atrial fibrillation: Code(s): I48.0 - Paroxysmal atrial fibrillation Status: Acute Assessment and Plan: Currently in a sinus bradycardia. Continue amiodarone. (7) Abdominal pain: Code(s): R10.9 - Unspecified abdominal pain Status: Acute Assessment and Plan: Likely from diverticulitis. Antibiotics (8) Bacteremia: Code(s): R78.81 - Bacteremia Status: Acute Assessment and Plan: IV vanc. Await ID and sensitivity DS: Summary Hospital Course Hospital Course: Patient was admitted for abdominal pain. Had a CT scan which showed diverticulitis. Patient was started on Augmentin. She is tolerating a normal diet and is otherwise doing okay she can be discharged on oral antibiotics. The patient was also dehydrated had some mild bump in creatinine which is now resolved. Time Spent with Patient Time attestation: Total time spent providing and/or coordinating discharge services: Exam Narrative: General: Well-developed female supine in bed in no acute distress. Weight: 86.3 kg. BMI: 32.7. HEENT: Wearing glasses. PERRL, EOMI. Conjunctivae anicteric. Tacky mucous membranes. Neck: Supple. No jugular venous distention. Respiratory: Respirations are even and nonlabored. Lungs are clear to auscultation bilaterally. Cardiovascular: Bradycardic with normal S1-S2. Systolic murmur at upper sternal border with mechanical click. Gastrointestinal: Abdomen is soft, obese, nontender, and nondistended with positive bowel sounds. She is diffusely tender to palpation throughout the abdomen. Bladder seems perhaps a bit distended. No guarding or rebound tenderness. Negative Nguyen sign. No tenderness to palpation over McBurney's point. Skin: Warm and dry. Decreased skin turgor. Bruising on the anterior shins. Extremities: No cyanosis, clubbing, or significant edema. Radial and pedal pulses intact. Neurological: Alert. Cranial nerves 2-12 are grossly intact. No gross focal deficits to casual conversation. Psychiatric: Pleasant and cooperative with normal mood and affect. Judgment and insight intact. DS: Data Data Completed and Pending Labs on day of discharge: Labs from last 24 hours 10/05/21 10/05/21 10/05/21 11:39 10:00 08:05 Sodium 141 Potassium 5.1 H Chloride 111 H Carbon Dioxide 27 Anion Gap 3 L BUN 22 H D Creatinine 1.00 Estim Creat Clear Calc 45 Estimated GFR 54 L Glucose 151 H POC Capillary Glucose 150 H 85 Calcium 9.4 U Protein 24 Hr Presump Ur BEAR Interpret 24 hr Free Fay & Lambda LC 10/04/21 10/04/21 10/04/21 21:42 18:24 16:21 Sodium Potassium Chloride Carbon Dioxide Anion Gap BUN Creatinine Estim Creat Clear Calc Estimated GFR Gl
[2021-10-06 14:53] LABS: Kappa\\Lambda Light Chains 1.38 (0.26-1.65); Lambda Light Chain 33.5 mg/L (5.7-26.3)
[2021-10-08 10:40] LABS: Osmolality, Urine 299 mOsm/kg (50-1200)
[2021-10-09 18:04] LABS: Anti Nuclear Antibody Titer 1:40 (Negative)
[2021-10-09 23:14] LABS: Albumin 21 %; Measured Kappa Chains <1.00 mg/dL (<2.00); Measured Lambda Chains <1.00 mg/dL (<2.00); Pro/Creat Ratio 147 mg/g creat (<=114)
[2021-10-10 11:15] LABS: Complement Total CH50 >60 U/mL (31-60)
[2021-10-16 15:33] LABS: Protein,total, 24 Hr Ur 129 mg/24h
== END 2021-10-05 13:44 | disposition home or self-care (01) ==
LOC: ANHED 16:03 → ANH3MEDSUR 16:47
PROVIDERS: Internal Medicine Nephrology; Physician Assistant; Admitting Provider Chiropractor; Emergency Provider Emergency Medicine; PCP Student in an Organized Health Care Education/Training Program; Visit Provider Chiropractor
DX: N17.9 Acute kidney failure, unspecified (principal); R79.1 Abnormal coagulation profile; I95.9 Hypotension, unspecified; E87.5 Hyperkalemia; R06.09 Other forms of dyspnea; R10.9 Unspecified abdominal pain; R78.81 Bacteremia; D53.9 Nutritional anemia, unspecified; E86.0 Dehydration; R79.89 Other specified abnormal findings of blood chemistry; K57.32 Diverticulitis of large intestine without perforation or abscess without bleeding; I13.0 Hypertensive heart and chronic kidney disease with heart failure and stage 1 through stage 4 chronic kidney disease, or unspecified chronic kidney disease; I50.9 Heart failure, unspecified; E11.22 Type 2 diabetes mellitus with diabetic chronic kidney disease; J44.9 Chronic obstructive pulmonary disease, unspecified; M79.89 Other specified soft tissue disorders; F41.8 Other specified anxiety disorders; N20.0 Calculus of kidney; E78.5 Hyperlipidemia, unspecified; G47.33 Obstructive sleep apnea (adult) (pediatric); I48.0 Paroxysmal atrial fibrillation; G25.81 Restless legs syndrome; M19.90 Unspecified osteoarthritis, unspecified site; Z20.822 Contact with and (suspected) exposure to COVID-19; Z95.2 Presence of prosthetic heart valve; Z79.51 Long term (current) use of inhaled steroids; Z79.01 Long term (current) use of anticoagulants; Z79.891 Long term (current) use of opiate analgesic
CPT/HCPCS: 36415; 71045; 74176; 76775; 80048; 80053; 80069; 81001; 82533; 82550; 82570; 82607; 82728; 82746; 82948; 83540; 83550; 83735; 83880; 83883; 83930; 83935; 84100; 84133; 84156; 84300; 84439; 84443; 84484; 85025; 85027; 85046; 85610; 85652; 85730; 85999; 86038; 86039; 86140; 86160; 86162; 86334; 86335; 87040; 87086; 87147; 87181; 87186; 93005; 93970; 94640; 96360; 96361; 96365; 96376; 97110; 97116; 97161; 97165; 97530; 99285; A9270; C9803; G0378; J3370; J7030; J7040; U0003; U0005

== ENCOUNTER → 2021-12-13 10:24 | Outpatient (CLI) | payer OTHER, SELFPAY ==
--- NOTE | ~2021-12-13 | US_ITS ---
US abdomen limited INDICATION: Right upper quadrant pain. PROCEDURE: Realtime right upper abdominal ultrasound. COMPARISON: CT dated 10/03/2021 FINDINGS: The pancreas is normal without focal mass or pancreatic ductal dilation. Liver echotexture is increased and heterogeneous with nodular surface, suspicious for cirrhosis. There is normal dire ctional flow in the portal vein. The gallbladder is normal without stones, gallbladder wall thickening or pericholecystic fluid. Adjac ent to the gallbladder there are coarse calcifications within the parenchyma with shadowing. No galls tones, gallbladder wall thickening or pericholecystic fluid. Common bile duct measures 6 mm. No sono graphic Nguyen's sign. IMPRESSION: 1: Increased liver echotexture with nodular liver surface, suspicious for cirrhosis. Coarse calcifica tions with the liver parenchyma are noted. The gallbladder fossa. Reviewed, dictated and finalized at location A. IMPRESSION: 1: Increased liver echotexture with nodular liver surface, suspicious for cirrh osis. Coarse calcifications with the liver parenchyma are noted. The gallbladde r fossa.
== END ==
PROVIDERS: PCP Student in an Organized Health Care Education/Training Program; Visit Provider Student in an Organized Health Care Education/Training Program
DX: R10.11 Right upper quadrant pain (principal)
CPT/HCPCS: 76705

== ENCOUNTER 2021-12-13 11:50 | Outpatient (CLI) | payer OTHER, SELFPAY ==
[2021-12-13 13:11] LABS: Phosphorus 3.2 mg/dL (2.5-4.5)
== END 2021-12-13 11:51 | disposition home or self-care (01) ==
LOC: ANHLAB 11:56
PROVIDERS: PCP Student in an Organized Health Care Education/Training Program; Visit Provider Student in an Organized Health Care Education/Training Program
DX: N25.81 Secondary hyperparathyroidism of renal origin (principal)
CPT/HCPCS: 36415; 83970; 84100

== ENCOUNTER 2021-12-16 13:32 | Outpatient (CLI) | payer OTHER, SELFPAY ==
[2021-12-19 07:28] LABS: Total Volume 2100 mL; Urine Calcium 3.7 mg/dL
== END 2021-12-16 13:33 | disposition home or self-care (01) ==
LOC: ANHLAB 13:34
PROVIDERS: PCP Student in an Organized Health Care Education/Training Program; Visit Provider Student in an Organized Health Care Education/Training Program
DX: N25.81 Secondary hyperparathyroidism of renal origin (principal)
CPT/HCPCS: 82340

== ENCOUNTER 2022-01-13 12:15 | Outpatient (CLI) | payer OTHER, SELFPAY ==
[2022-01-13 13:14] LABS: Basophils Percent Auto 0.6 % (0.2-1.2); Eosinophils Absolute Auto 0.2 K/mm3 (0-0.3); Eosinophils Percent Auto 2.5 % (0-4.4); Hematocrit 42.3 % (37.0-47.0); Hemoglobin 13.2 g/dL (12.0-15.0); Immature Granulocyte Absolute 0.01 K/mm3 (0.00-0.031); Immature Granulocyte Percent A 0.1 % (0-0.5); Lymphocytes Absolute Auto 1.23 K/mm3 (0.9-3.2); Mean Corpuscular HGB Conc 31.2 g/dl (32-36); Mean Corpuscular Hemoglobin 31.4 pg (26-34); Mean Corpuscular Volume 100.7 fl (80-100); Mean Platelet Volume 12.3 fl (7.4-10.4); Monocytes Absolute Auto 0.6 K/mm3 (0.1-0.6); Monocytes Percent Auto 8.1 % (2.6-8.5); Neutrophils Absolute Auto 5.2 K/mm3 (1.3-6.7); Neutrophils Percent Auto 71.7 % (45.5-73.1); Platelet Count Result 232 k/mm3 (150-375); Red Cell Distribution Width 13.9 % (11.5-14.5); White Blood Count 7.3 K/mm3 (4.5-10.0)
[2022-01-13 13:26] LABS: Alanine Aminotransferase 27 U/L (6-35); Albumin Level 4.4 g/dL (3.5-5.1); Alkaline Phosphatase 80 U/L (38-126); Anion Gap 10 mmol/L (8-16); Aspartate Amino Transferase 44 U/L (14-36); Bilirubin,Total 0.5 mg/dL (0.2-1.3); Blood Urea Nitrogen 46 mg/dL (7-17); Calcium 11.8 mg/dL (8.4-10.2); Carbon Dioxide 33 mmol/L (22-30); Chloride 95 mmol/L (98-107); Estimated Glomerular Filt Rate 48; Glucose 152 mg/dL (65-110); Potassium 4.4 mmol/L (3.4-5.0); Sodium 138 mmol/L (137-145)
[2022-01-13 13:38] LABS: Parathyroid Intact 146.5 pg/mL (7.5-53.5)
[2022-01-13 13:57] LABS: Thyroid Stimulating Hormone 0.062 uIU/mL (0.465-4.680)
[2022-01-13 13:58] LABS: Creatinine Urine 57.6 mg/dL
[2022-01-13 14:02] LABS: Iron 213 ug/dL (37-170)
[2022-01-13 14:09] LABS: Vitamin D 25 Hydroxy 57.2 ng/mL
[2022-01-13 14:11] LABS: Percent Iron Saturation 60 % (20-50)
[2022-01-13 14:13] LABS: Hemoglobin A1C 6.2 % (<5.7)
[2022-01-13 14:26] LABS: Free T4 Free Thyroxine 0.75 ng/mL (0.78-2.19)
[2022-01-15 13:52] LABS: Thyroid Stimulating Immunoglob 271 % baseline (<140)
[2022-01-16 05:53] LABS: Anti Nuclear Antibody Titer 1:40 (Negative)
[2022-01-16 09:43] LABS: Ceruloplasmin 35 mg/dL (18-53)
[2022-01-17 05:03] LABS: Thyroid Peroxidase Antibodies 75 IU/mL (<9)
[2022-01-17 05:42] LABS: Triiodothyronine T3 Free 2.6 pg/mL (2.3-4.2)
[2022-01-20 14:17] LABS: Calcium/Creatinine Ratio, Ur 202 mg/g creat (10-320); Urine Calcium, Random 9.9 mg/dL (***)
== END 2022-01-13 12:16 | disposition home or self-care (01) ==
LOC: ANHLAB 12:36
PROVIDERS: PCP Student in an Organized Health Care Education/Training Program; Visit Provider Student in an Organized Health Care Education/Training Program
DX: R42 Dizziness and giddiness (principal); Z79.01 Long term (current) use of anticoagulants; K74.60 Unspecified cirrhosis of liver; E11.51 Type 2 diabetes mellitus with diabetic peripheral angiopathy without gangrene; N25.81 Secondary hyperparathyroidism of renal origin; E05.90 Thyrotoxicosis, unspecified without thyrotoxic crisis or storm
CPT/HCPCS: 36415; 80053; 82248; 82306; 82310; 82390; 82570; 82728; 83036; 83540; 83550; 83970; 84439; 84443; 84445; 84481; 85025; 86038; 86039; 86376

== ENCOUNTER 2022-03-18 13:11 | Observation (INO) | payer OTHER, SELFPAY ==
[2022-03-18] VITALS (23 sets, daily range): BP systolic 100–138; BP diastolic 57–89; PULSE 53–98; RESP 11–23; TEMP 36.1–36.9; O2SAT 94–100; BMI 28.3
--- NOTE | ~2022-03-18 | XR_ITS ---
EXAMINATION: XR chest 2V DATE: 03/18/2022 14:21 INDICATION: Weakness. Shortness of breath. Dizziness. TECHNIQUE: Frontal and lateral views of the chest were obtained. COMPARISON: Chest single view 10/02/2021, CT abdomen and pelvis 10/03/2021. FINDINGS: There is mild atelectasis at the lung bases. No pleural effusion or pneumothorax. The heart size is normal. There are changes of heart valve replacement. There are is an old healed fracture of left clavicle. IMPRESSION: 1. Mild atelectasis at the lung bases. Reviewed, dictated and finalized at location A. GER LABOR RELATIONS
--- NOTE | 2022-03-18 13:52 | ECG_ITS ---
Measurements Intervals Mcneal Rate: 97 P: -63 MS: 218 QRS: -64 QRSD: 157 T: 117 QT: 373 QTc: 476 Interpretive Statements SINUS RHYTHM WITH FIRST DEGREE AV BLOCK VENTRICULAR PREMATURE COMPLEX LEFT BUNDLE BRANCH BLOCK ANTEROLATERAL INFARCT OR DUE TO LBBB INFERIOR INFARCT OR DUE TO LBBB BASELINE ARTIFACT- I, II, AVR ABNORMAL ECG COMPARED TO ECG 10/02/2021 15:00:43 FIRST DEGREE AV BLOCK NOW PRESENT Electronically Signed On 03-18-2022 14:30:10 [employer] SUPER[employer] by Emil Farrell D.O.
[2022-03-18 14:41] LABS: Basophils Absolute Auto 0.1 K/mm3 (0.0-0.1); Basophils Percent Auto 1.4 % (0.2-1.2); Eosinophils Absolute Auto 0.2 K/mm3 (0-0.3); Eosinophils Percent Auto 3.2 % (0-4.4); Hematocrit 40.7 % (37.0-47.0); Hemoglobin 12.7 g/dL (12.0-15.0); Immature Granulocyte Absolute 0.01 K/mm3 (0.00-0.031); Immature Granulocyte Percent A 0.2 % (0-0.5); Lymphocytes Absolute Auto 1.18 K/mm3 (0.9-3.2); Mean Corpuscular HGB Conc 31.2 g/dl (32-36); Mean Corpuscular Hemoglobin 32.2 pg (26-34); Mean Platelet Volume 12.5 fl (7.4-10.4); Monocytes Absolute Auto 0.7 K/mm3 (0.1-0.6); Monocytes Percent Auto 10.7 % (2.6-8.5); Neutrophils Absolute Auto 4.4 K/mm3 (1.3-6.7); Neutrophils Percent Auto 66.5 % (45.5-73.1); Platelet Count Result 220 k/mm3 (150-375); Red Blood Count 3.95 M/mm3 (4.2-5.4); Red Cell Distribution Width 13.3 % (11.5-14.5); White Blood Count 6.6 K/mm3 (4.5-10.0)
[2022-03-18 14:48] LABS: Alanine Aminotransferase 26 U/L (6-35); Albumin Level 4.3 g/dL (3.5-5.1); Alkaline Phosphatase 82 U/L (38-126); Anion Gap 6 mmol/L (8-16); Aspartate Amino Transferase 39 U/L (14-36); Bilirubin,Total 0.6 mg/dL (0.2-1.3); Blood Urea Nitrogen 64 mg/dL (7-17); Calcium 10.8 mg/dL (8.4-10.2); Carbon Dioxide 32 mmol/L (22-30); Chloride 96 mmol/L (98-107); Estimated CRCL calculation 18 ml/min; Estimated Glomerular Filt Rate 20; Glucose 125 mg/dL (65-110); Sodium 134 mmol/L (137-145)
--- NOTE | 2022-03-18 14:55 | ED.WEAKNESS ---
HPI - Weakness General Chief complaint: Weakness Stated complaint: weakness Time Seen by Provider: 03/18/22 14:37 History of Present Illness HPI Narrative: Patient is a 76-year-old female with a history of CHF, hypertension, GERD, mechanical heart valve on warfarin presenting with weakness. Patient states that for the last 4 days she has been increasingly weak. States that her arms feel very heavy. She was seen at her PCPs office earlier today and tested negative for COVID-19. Patient states that she has also had some intermittent sharp chest pain. Reports worsening dyspnea, no obvious exacerbating or alleviating factors. She otherwise denies fevers or chills, headache, cough, abdominal pain, vomiting, diarrhea, dysuria, leg swelling. Denies urinary frequency. Related Data Home Medications Medication Instructions Recorded Confirmed albuterol sulfate 90 mcg/actuation 2 puff inhalation QID PRN 01/09/19 03/18/22 aerosol inhaler Shortness Of Breath ferrous sulfate 325 mg (65 mg 325 mg PO DAILY 01/09/19 03/18/22 iron) tablet gabapentin 300 mg capsule 300 mg PO Q12H 01/09/19 03/18/22 omeprazole 20 mg capsule,delayed 20 mg PO DAILY 01/09/19 03/18/22 release venlafaxine 150 mg 150 mg PO DAILY 01/09/19 03/18/22 capsule,extended release 24 hr hydrocodone 10 mg-acetaminophen 10 - 325 tablet PO Q6H PRN Pain 10/02/21 03/18/22 325 mg tablet furosemide 20 mg tablet 60 mg PO DAILY 03/18/22 03/18/22 lisinopril 20 mg tablet 20 mg PO DAILY 03/18/22 03/18/22 methimazole 10 mg tablet 10 mg PO DAILY 03/18/22 03/18/22 metoprolol tartrate 25 mg tablet 12.5 mg PO Q12H 03/18/22 03/18/22 potassium chloride 10 mEq 10 meq PO DAILY 03/18/22 03/18/22 tablet,extended release rosuvastatin 5 mg tablet 5 mg PO HS 03/18/22 03/18/22 warfarin 6 mg tablet 6 mg PO DAILY 03/18/22 03/18/22 Allergies Allergy/AdvReac Type Severity Reaction Status Date / Time adhesive tape Allergy Intermediate Blister Verified 03/21/21 11:27 bacitracin Allergy Mild Rash Verified 03/21/21 11:27 neomycin Allergy Mild Rash Verified 03/21/21 11:27 polymyxin B Allergy Mild Rash Verified 03/21/21 11:27 cortisone Allergy Unknown Unknown Verified 03/21/21 11:27 Review of Systems Review of Systems: All systems reviewed & are unremarkable except as noted in HPI and below PMFSH Past Medical History Medical History Burst fracture of thoracic vertebra Chronic anticoagulation Chronic kidney disease Baseline creatinine is around 1.50. Chronic obstructive pulmonary disease Patient had a pulmonary function test on 02/24/2020 which was suggestive of COPD. Congestive heart failure Echocardiogram in March 2021 showed normal FVC size, moderate LVH, borderline LV systolic function with an EF of 50 to 55%, and grade 1 diastolic dysfunction. Degenerative joint disease Depression Depression with anxiety Diverticulitis Herniated disc Hyperlipidemia Hypertension Kidney stone Obstructive sleep apnea on CPAP On amiodarone therapy Paroxysmal atrial fibrillation Restless leg syndrome Type 2 diabetes mellitus Surgical History Surgical History History of ankle surgery ORIF left ankle fracture. History of bilateral cataract extraction History of hysterectomy History of mechanical aortic valve replacement (2003) [facility] valve. History of right knee surgery Ligamentous repair. Family History Family History Mother Depression Family history of coronary artery disease Father Family history of diabetes mellitus in first degree relative Other Diabetes mellitus Family history of arthritis Family history of cardiovascular disease Social History Social History Social History: The patient is and lives in her own home with her small dog. Sh
[2022-03-18] MEDS: SODIUM CHLORIDE 0.9% IV 1,000 ML 999 ML IV CONT (15:03)
[2022-03-18 15:45] LABS: INR 1.8
[2022-03-18 15:46] LABS: Partial Thromboplastin Time 49.9 SECONDS (22.3-36.8)
[2022-03-18 16:05] LABS: NT Pro B Type Natriuretic Pept 927 pg/mL (5-100); Troponin I 0.036 ng/mL (0.000-0.034)
[2022-03-18 16:09] LABS: Influenza A QL RT-PCR Negative (Negative); Influenza B QL RT-PCR Negative (Negative); RSV RNA, RT-PCR Negative (Negative); SARS-CoV-2 RNA PCR Negative
[2022-03-18 16:55] LABS: Bacteria Urine Trace /hpf; Mucus Urine Rare /lpf; RBC Urine 0-2 /hpf (0-2); Squamous Epithelial Cell Urine Few /hpf (Few); WBC Urine 31-50 /hpf
[2022-03-18 16:56] LABS: Appearance Urine Clear (Clear); Color Urine Yellow (Yellow); Protein Urine Negative (Negative); pH Urine 5.5 (5.0-9.0)
[2022-03-18 16:57] LABS: Bilirubin Urine Negative (Negative); Blood Urine Negative (Negative); Glucose Urine UA Negative (Negative); Ketones Urine Negative (Negative); Nitrate Urine Negative (Negative); Urobilinogen Urine 0.2 mg/dL (<2.0)
[2022-03-18 16:58] LABS: Add Urine Microscopic? YES; Leukocyte Esterase Ur 2+ LEU/UL (Negative)
--- NOTE | 2022-03-18 17:22 | PC.NURSE ---
Patient states she does not want to take the aspirin since she is currently on Warfarin. EDP Gavin notified, okay to hold aspirin. Patient denies any chest pain.
--- NOTE | 2022-03-18 18:41 | ADMGEN ---
This patient, Radha Huynh, was admitted to IMU Room 205-01. Patient/family oriented to hospital policies and general routines including ID bracelet, bed and alarms, visiting hours, pain management, procedures, bathroom and other care routines, personal items, smoking policy, room service/diet, and visiting hours. Information on how to activate the Rapid Response Team has been discussed. Patient/Family are encouraged to report perceived risks to care and to ask questions if they do not understand what they are told or what they should do.
[2022-03-18 19:26] LABS: Glucose Point of Care 106 mg/dl (65-105)
--- NOTE | 2022-03-18 20:32 | PM.IMHP ---
H&P: HPI History of Present Illness Date/Time: 03/18/22 20:32 Chief Complaint: Generalized weakness Narrative: This is a 76-year-old female with past medical history significant for chronic kidney disease, chronic obstructive pulmonary disease, congestive heart failure, degenerative joint disease, paroxysmal atrial fibrillation, restless leg syndrome, type 2 diabetes mellitus, Patient presents to the emergency room with complaints generalized weakness, and overall vague symptoms, poor oral intake. Denies fevers, rigors, chills, nausea, vomiting. Patient had been seen and evaluated at her primary care physician's office where she underwent testing for influenza A, influenza B and COVID 19 which were negative. Preliminary workup was significant for a creatinine of 2.4, BUN 64, a urinalysis was significant for numerous WBCs present. Chest x-ray was reported as: FINDINGS: There is mild atelectasis at the lung bases. No pleural effusion or pneumothorax. The heart size is normal. There are changes of heart valve replacement. There are is an old healed fracture of left clavicle. IMPRESSION: 1. Mild atelectasis at the lung bases. Review of Systems Review of Systems: Generalized weakness Constitutional: Constitutional: Denies chills, Reports fatigue, Denies fever(s), Reports lethargy, Reports malaise, Reports poor appetite and Reports weakness Eyes: Eyes: Denies change in vision ENT: Denies dysphagia, Denies vertigo, Denies dizziness and Denies odynophagia Cardiovascular: Cardiovascular: Reports as per HPI, Reports no additional cardiovascular complaints and Denies leg edema Respiratory: Respiratory: Denies chest congestion, Denies cough, Denies excessive phlegm production, Denies dyspnea and Denies dyspnea on exertion Gastrointestinal: Gastrointestinal: Denies abdominal pain, Denies dyspepsia, Denies heartburn, Denies diarrhea, Denies nausea and Denies vomiting Genitourinary: Genitourinary: Denies dysuria Musculoskeletal: Musculoskeletal: Reports muscle weakness Integumentary/Breasts: Skin/Breast: Denies rash Neurologic: Denies vertigo, Denies dizziness, Denies focal weakness and Denies Sensory deficit (Neuro) Psychiatric: Psychiatric: Reports no additional psychiatric complaints and Reports as per HPI Endocrine: Endocrine: Denies cold intolerance, Denies flushing, Denies heat intolerance, Denies polyphagia, Denies polydipsia and Denies palpitations Hematologic/Lymphatic: Hematologic/Lymphatic: Reports no additional hematologic/lymphatic complaints and Reports as per HPI Allergic/Immunologic: Allergic/Immunologic: Reports no additional allergic/immunologic complaints and Reports as per HPI [facility] Past Medical History Medical History Burst fracture of thoracic vertebra Chronic anticoagulation Chronic kidney disease Baseline creatinine is around 1.50. Chronic obstructive pulmonary disease Patient had a pulmonary function test on 02/24/2020 which was suggestive of COPD. Congestive heart failure Echocardiogram in March 2021 showed normal FVC size, moderate LVH, borderline LV systolic function with an EF of 50 to 55%, and grade 1 diastolic dysfunction. Degenerative joint disease Depression Depression with anxiety Diverticulitis Herniated disc Hyperlipidemia Hypertension Kidney stone Obstructive sleep apnea on CPAP On amiodarone therapy Paroxysmal atrial fibrillation Restless leg syndrome Type 2 diabetes mellitus Surgical History Surgical History History of ankle surgery ORIF left ankle fracture. History of bilateral cataract extraction History of hysterectomy History of mechanical aortic valve replacement (2003) St. Lj valve. History of right knee surgery Ligamentous repair. Family History Family History Mother Depression Family history of c
[2022-03-19] VITALS (9 sets, daily range): BP systolic 108–126; BP diastolic 50–66; PULSE 60–98; RESP 14–20; TEMP 36.3–37; O2SAT 96–100
[2022-03-19 05:33] LABS: Anion Gap 4 mmol/L (8-16); Blood Urea Nitrogen 60 mg/dL (7-17); Calcium 10.1 mg/dL (8.4-10.2); Carbon Dioxide 29 mmol/L (22-30); Chloride 106 mmol/L (98-107); Estimated CRCL calculation 27 ml/min; Estimated Glomerular Filt Rate 29; Glucose 86 mg/dL (65-110); Potassium 4.9 mmol/L (3.4-5.0); Sodium 139 mmol/L (137-145)
[2022-03-19 07:51] LABS: Glucose Point of Care 91 mg/dl (65-105)
[2022-03-19] MEDS: GABAPENTIN 300 MG CAPSULE PO (09:44)
[2022-03-19] MEDS: METOPROLOL TARTRATE 12.5 MG TABLET PO (09:45)
[2022-03-19] MEDS: FERROUS SULFATE 324 MG TABLET PO (09:45)
[2022-03-19] MEDS: VENLAFAXINE HCL XR 75 MG CAP.ER.24H 150 MG PO (09:45)
[2022-03-19] MEDS: PANTOPRAZOLE 40 MG TABLET PO (09:45)
[2022-03-19] MEDS: methiMAzole 10 MG TAB PO (09:45)
[2022-03-19] MEDS: HYDROcodone/acetaminophen (*CRX) 10-325 MG TABLET 1 TAB PO (09:49)
--- NOTE | 2022-03-19 11:56 | PM.DS ---
DS: Admitting Diagnosis Discharge Date March 19, 2022 Admitting Diagnosis Dehydration, acute kidney injury DS: Discharge Diagnosis Discharge Diagnosis (1) UTI (urinary tract infection): Code(s): N39.0 - Urinary tract infection, site not specified Status: Acute (2) Acute kidney injury superimposed on chronic kidney disease: Code(s): N17.9 - Acute kidney failure, unspecified; N18.9 - Chronic kidney disease, unspecified Status: Acute (3) Congestive heart failure: Code(s): I50.9 - Heart failure, unspecified Status: Acute (4) Obstructive sleep apnea on CPAP: Code(s): G47.33 - Obstructive sleep apnea (adult) (pediatric); Z99.89 - Dependence on other enabling machines and devices Status: Acute (5) Type 2 diabetes mellitus: Code(s): E11.9 - Type 2 diabetes mellitus without complications Status: Acute (6) Paroxysmal atrial fibrillation: Code(s): I48.0 - Paroxysmal atrial fibrillation Status: Acute (7) Chronic anticoagulation: Code(s): Z79.01 - superintendent [employer] (current) use of anticoagulants Status: Acute DS: Summary Hospital Course Hospital Course: 76-year-old female admitted for dehydration acute kidney injury. Patient was started IV fluids and her kidney function improved. Will hold diuretics for about a week on discharge. Will need to follow up her primary care physician. Otherwise patient feels okay he is able to do her normal activities. She can be discharged from the hospital Time Spent with Patient Time attestation: Total time spent providing and/or coordinating discharge services: Exam Const: General: comfortable, no acute distress, well developed, alert, awake, ill appearing acutely and average body habitus Nutritional Appearance: average body habitus Orientation/consciousness: patient oriented x3 HENMT: Head: normal to inspection, normocephalic and atraumatic Ears: hearing grossly normal bilaterally Face/Nose/Sinus: normal facial exam Face and sinus: normal facial exam Eyes: General: appearance normal, both eyes and all related structures Pupils: Equal, round and reactive pupils present EOM: EOMs intact bilaterally Neck: Neck: full ROM, no lymphadenopathy and no JVD Thyroid: thyroid normal Lymphatic: no lymphadenopathy noted Resp: Effort & Inspection: normal respiratory effort and able to speak in complete sentences Auscultation: clear to auscultation bilaterally Cardio: Jugular venous distension: no JVD Rate: regular rate Rhythm: regular rhythm Heart sounds: S1 normal heart sound present and S2 normal heart sound present : General: Yes deferred Skin: Rashes: no rashes Wounds: no wounds Neuro: General: patient oriented x3, CN's II-XI intact bilaterally and Unable to assess gait Cranial nerves: Yes CN's II-XII intact bilaterally and Yes Equal, round and reactive pupils present Cognition (Neuro): normal cognition Speech: normal speech Gait exam (Neuro): Unable to assess gait Motor exam (neuro): 5/5 motor strength present throughout Sensory Exam: No Sensory deficit (Neuro) Extrem: General: normal to inspection, full ROM, no joint enlargement and no pedal edema DS: Data Data Completed and Pending Labs on day of discharge: Labs from last 24 hours 03/19/22 03/19/22 03/18/22 07:23 04:33 19:20 WBC RBC Hgb Hct MCV MCH MCHC RDW Plt Count MPV Immature Gran % (Auto) Neut % (Auto) Lymph % (Auto) [place] % (Auto) Eos % (Auto) Baso % (Auto) Lymph # (Auto) [place] # (Auto) Eos # (Auto) Baso # (Auto) Abs Immat Gran (auto) Absolute Neuts (auto) Absolute Nucleated RBC Nucleated RBC % PT INR APTT Sodium 139 Potassium 4.9 Chloride 106 Carbon Dioxide 29 Anion Gap 4 L BUN 60 H Creatinine 1.70 H Estim Creat Clear Calc 27 Estimated GFR 29 L Glucose 86 POC Capillary Glucose 91 Calcium 10.1 T
== END 2022-03-19 13:05 | disposition home or self-care (01) ==
LOC: ANHED 15:08 → ANHIMU 18:37
PROVIDERS: Family Medicine; Admitting Provider Internal Medicine; Emergency Provider Emergency Medicine; PCP Student in an Organized Health Care Education/Training Program; Visit Provider Chiropractor
DX: N39.0 Urinary tract infection, site not specified (principal); N17.9 Acute kidney failure, unspecified; I11.0 Hypertensive heart disease with heart failure; I50.9 Heart failure, unspecified; G47.33 Obstructive sleep apnea (adult) (pediatric); Z99.89 Dependence on other enabling machines and devices; I48.0 Paroxysmal atrial fibrillation; I48.91 Unspecified atrial fibrillation; I13.0 Hypertensive heart and chronic kidney disease with heart failure and stage 1 through stage 4 chronic kidney disease, or unspecified chronic kidney disease; E11.22 Type 2 diabetes mellitus with diabetic chronic kidney disease; N18.9 Chronic kidney disease, unspecified; K21.9 Gastro-esophageal reflux disease without esophagitis; I45.2 Bifascicular block; Z95.2 Presence of prosthetic heart valve; R06.00 Dyspnea, unspecified; R94.31 Abnormal electrocardiogram [ECG] [EKG]; M19.90 Unspecified osteoarthritis, unspecified site; J44.9 Chronic obstructive pulmonary disease, unspecified; Z20.822 Contact with and (suspected) exposure to COVID-19; F41.8 Other specified anxiety disorders; J98.11 Atelectasis; E78.5 Hyperlipidemia, unspecified; K57.92 Diverticulitis of intestine, part unspecified, without perforation or abscess without bleeding; G25.81 Restless legs syndrome; Z79.01 Long term (current) use of anticoagulants; Z79.51 Long term (current) use of inhaled steroids; Z79.891 Long term (current) use of opiate analgesic; Z79.899 Other long term (current) drug therapy; Z83.3 Family history of diabetes mellitus; Z82.49 Family history of ischemic heart disease and other diseases of the circulatory system
CPT/HCPCS: 36415; 71046; 80048; 80053; 81001; 82948; 83880; 84484; 85025; 85610; 85730; 87086; 87637; 93005; 96361; 96365; 99285; A9270; G0378; J0696; J7030

== ENCOUNTER 2022-03-31 12:04 | Outpatient (CLI) | payer OTHER, SELFPAY ==
[2022-03-31 12:37] LABS: Basophils Absolute Auto 0.1 K/mm3 (0.0-0.1); Basophils Percent Auto 0.8 % (0.2-1.2); Eosinophils Absolute Auto 0.2 K/mm3 (0-0.3); Eosinophils Percent Auto 2.4 % (0-4.4); Hematocrit 37.4 % (37.0-47.0); Hemoglobin 11.8 g/dL (12.0-15.0); Immature Granulocyte Absolute 0.02 K/mm3 (0.00-0.031); Immature Granulocyte Percent A 0.3 % (0-0.5); Lymphocytes Absolute Auto 1.29 K/mm3 (0.9-3.2); Lymphocytes Percent Auto 16.9 % (18.3-44.2); Mean Corpuscular HGB Conc 31.6 g/dl (32-36); Mean Corpuscular Hemoglobin 32.6 pg (26-34); Mean Corpuscular Volume 103.3 fl (80-100); Mean Platelet Volume 11.6 fl (7.4-10.4); Neutrophils Absolute Auto 5.1 K/mm3 (1.3-6.7); Neutrophils Percent Auto 66.6 % (45.5-73.1); Platelet Count Result 264 k/mm3 (150-375); Red Blood Count 3.62 M/mm3 (4.2-5.4); Red Cell Distribution Width 13.8 % (11.5-14.5); White Blood Count 7.6 K/mm3 (4.5-10.0)
[2022-03-31 12:47] LABS: Alanine Aminotransferase 26 U/L (6-35); Albumin Level 4.1 g/dL (3.5-5.1); Alkaline Phosphatase 73 U/L (38-126); Anion Gap 2 mmol/L (8-16); Aspartate Amino Transferase 34 U/L (14-36); Bilirubin,Total 0.4 mg/dL (0.2-1.3); Blood Urea Nitrogen 33 mg/dL (7-17); Calcium 10.7 mg/dL (8.4-10.2); Carbon Dioxide 33 mmol/L (22-30); Chloride 99 mmol/L (98-107); Estimated Glomerular Filt Rate 27; Glucose 99 mg/dL (65-110); Potassium 4.7 mmol/L (3.4-5.0); Sodium 134 mmol/L (137-145)
== END 2022-03-31 12:05 | disposition home or self-care (01) ==
PROVIDERS: PCP Student in an Organized Health Care Education/Training Program; Visit Provider Student in an Organized Health Care Education/Training Program
DX: N30.00 Acute cystitis without hematuria (principal); N17.9 Acute kidney failure, unspecified
CPT/HCPCS: 36415; 80053; 85025

== ENCOUNTER 2022-04-25 10:33 | Outpatient (CLI) | payer OTHER, SELFPAY ==
[2022-04-25 12:12] LABS: INR 2.7; Prothrombin Time 27.5 Seconds (11.1-14.7)
[2022-04-25 12:31] LABS: Anion Gap 4 mmol/L (8-16); Blood Urea Nitrogen 36 mg/dL (7-17); Calcium 10.4 mg/dL (8.4-10.2); Carbon Dioxide 33 mmol/L (22-30); Chloride 103 mmol/L (98-107); Estimated Glomerular Filt Rate 27; Glucose 104 mg/dL (65-110); Potassium 4.6 mmol/L (3.4-5.0); Sodium 140 mmol/L (137-145)
== END 2022-04-25 10:34 | disposition home or self-care (01) ==
PROVIDERS: PCP Student in an Organized Health Care Education/Training Program; Visit Provider Student in an Organized Health Care Education/Training Program
DX: I50.32 Chronic diastolic (congestive) heart failure (principal); Z79.01 Long term (current) use of anticoagulants
CPT/HCPCS: 36415; 80048; 85610

== ENCOUNTER 2022-05-16 12:55 | Emergency (ER) | payer OTHER, SELFPAY ==
[2022-05-16] VITALS (19 sets, daily range): BP systolic 129–162; BP diastolic 55–99; PULSE 48–62; RESP 12–20; TEMP 36.6; O2SAT 97–100
--- NOTE | ~2022-05-16 | XR_ITS ---
XR chest 2V DATE: 05/16/2022 14:03 INDICATION: Right anterior chest pain TECHNIQUE: PA and lateral views COMPARISON: 03/18/2022 2 view chest FINDINGS: Status post sternotomy and heart valve replacement. Borderline heart size. There is extensi ve thoracic and abdominal aortic calcification. No hilar or mediastinal enlargement. No pulmonary infiltrate or consolidation, pleural effusion or pulmonary vascular congestion or pneumo thorax. Chronic severe loss of height and anterior wedging of a midthoracic vertebral body. Osteopenia. IMPRESSION: No active disease or significant change since 03/18/2022 Reviewed, dictated and finalized at location B. KLAYER PAVING BRICK
--- NOTE | 2022-05-16 13:04 | ECG_ITS ---
Measurements Intervals Mallie Rate: 49 P: CA: 0 QRS: -43 QRSD: 154 T: 94 QT: 446 QTc: 405 Interpretive Statements SINUS OR ECTOPIC ATRIAL BRADYCARDIA WITH FIRST DEGREE AV BLOCK LEFT AXIS DEVIATION LEFT BUNDLE BRANCH BLOCK INFERIOR INFARCT OR DUE TO LBBB BASELINE ARTIFACT- I, AVR, AVL ABNORMAL ECG COMPARED TO ECG 03/18/2022 14:26:33 SINUS OR ECTOPIC ATRIAL BRADYCARDIA NOW PRESENT Electronically Signed On 05-16-2022 13:38:38 GENERATOR OPERATOR by Emil Farrell D.O.
[2022-05-16 13:51] LABS: Basophils Absolute Auto 0.1 K/mm3 (0.0-0.1); Basophils Percent Auto 1.5 % (0.2-1.2); Eosinophils Absolute Auto 0.2 K/mm3 (0-0.3); Eosinophils Percent Auto 3.2 % (0-4.4); Hemoglobin 11.7 g/dL (12.0-15.0); Immature Granulocyte Absolute 0.02 K/mm3 (0.00-0.031); Immature Granulocyte Percent A 0.4 % (0-0.5); Lymphocytes Absolute Auto 1.14 K/mm3 (0.9-3.2); Lymphocytes Percent Auto 21.7 % (18.3-44.2); Mean Corpuscular HGB Conc 31.6 g/dl (32-36); Mean Corpuscular Hemoglobin 32.8 pg (26-34); Mean Corpuscular Volume 103.6 fl (80-100); Mean Platelet Volume 12.3 fl (7.4-10.4); Monocytes Absolute Auto 0.5 K/mm3 (0.1-0.6); Monocytes Percent Auto 10.3 % (2.6-8.5); Neutrophils Absolute Auto 3.3 K/mm3 (1.3-6.7); Neutrophils Percent Auto 62.9 % (45.5-73.1); Platelet Count Result 249 k/mm3 (150-375); Red Blood Count 3.57 M/mm3 (4.2-5.4); Red Cell Distribution Width 12.2 % (11.5-14.5); White Blood Count 5.3 K/mm3 (4.5-10.0)
[2022-05-16 14:07] LABS: INR 2.6; Prothrombin Time 26.9 Seconds (11.1-14.7)
[2022-05-16 14:08] LABS: Partial Thromboplastin Time 50.9 SECONDS (22.3-36.8)
[2022-05-16 15:12] LABS: Alanine Aminotransferase 21 U/L (6-35); Albumin Level 3.9 g/dL (3.5-5.1); Alkaline Phosphatase 72 U/L (38-126); Anion Gap 4 mmol/L (8-16); Aspartate Amino Transferase 31 U/L (14-36); Bilirubin,Total 0.5 mg/dL (0.2-1.3); Blood Urea Nitrogen 33 mg/dL (7-17); Calcium 10.4 mg/dL (8.4-10.2); Carbon Dioxide 32 mmol/L (22-30); Chloride 100 mmol/L (98-107); Estimated Glomerular Filt Rate 44; Glucose 114 mg/dL (65-110); Lipase 160 U/L (23-300); Potassium 4.6 mmol/L (3.4-5.0); Sodium 136 mmol/L (137-145)
--- NOTE | 2022-05-16 15:20 | ED.GENADULT ---
HPI - General Adult General Chief complaint: Chest Pain Stated complaint: side pain Time Seen by Provider: 05/16/22 13:34 History of Present Illness HPI narrative: 76-year-old female presenting to the emergency department for evaluation of right-sided chest pain. Patient reports yesterday she did some heavy lifting of a half a case of water and suspects she may have injured herself. Patient denies any acute pain when lifting the half a case of water. Patient noticed the right-sided chest pain when going to bed. Patient denies any cough or shortness of breath. Patient states the pain is worsened with movement. Related Data Home Medications Medication Instructions Recorded Confirmed albuterol sulfate 90 mcg/actuation 2 puff inhalation QID PRN 01/09/19 03/18/22 aerosol inhaler Shortness Of Breath ferrous sulfate 325 mg (65 mg 325 mg PO DAILY 01/09/19 03/18/22 iron) tablet gabapentin 300 mg capsule 300 mg PO Q12H 01/09/19 03/18/22 omeprazole 20 mg capsule,delayed 20 mg PO DAILY 01/09/19 03/18/22 release venlafaxine 150 mg 150 mg PO DAILY 01/09/19 03/18/22 capsule,extended release 24 hr hydrocodone 10 mg-acetaminophen 10 - 325 tablet PO Q6H PRN Pain 10/02/21 03/18/22 325 mg tablet furosemide 20 mg tablet 60 mg PO DAILY 03/18/22 03/18/22 lisinopril 20 mg tablet 20 mg PO DAILY 03/18/22 03/18/22 methimazole 10 mg tablet 10 mg PO DAILY 03/18/22 03/18/22 metoprolol tartrate 25 mg tablet 12.5 mg PO Q12H 03/18/22 03/18/22 potassium chloride 10 mEq 10 meq PO DAILY 03/18/22 03/18/22 tablet,extended release rosuvastatin 5 mg tablet 5 mg PO HS 03/18/22 03/18/22 warfarin 6 mg tablet 6 mg PO DAILY 03/18/22 03/18/22 Allergies Allergy/AdvReac Type Severity Reaction Status Date / Time adhesive tape Allergy Intermediate Blister Verified 03/21/21 11:27 bacitracin Allergy Mild Rash Verified 03/21/21 11:27 neomycin Allergy Mild Rash Verified 03/21/21 11:27 polymyxin B Allergy Mild Rash Verified 03/21/21 11:27 cortisone Allergy Unknown Unknown Verified 03/21/21 11:27 Review of Systems Review of Systems: All systems reviewed & are unremarkable except as noted in HPI and below PMFSH Past Medical History Medical History Burst fracture of thoracic vertebra Chronic anticoagulation Chronic kidney disease Baseline creatinine is around 1.50. Chronic obstructive pulmonary disease Patient had a pulmonary function test on 02/24/2020 which was suggestive of COPD. Congestive heart failure Echocardiogram in March 2021 showed normal FVC size, moderate LVH, borderline LV systolic function with an EF of 50 to 55%, and grade 1 diastolic dysfunction. Degenerative joint disease Depression Depression with anxiety Diverticulitis Herniated disc Hyperlipidemia Hypertension Kidney stone Obstructive sleep apnea on CPAP On amiodarone therapy Paroxysmal atrial fibrillation Restless leg syndrome Type 2 diabetes mellitus Surgical History Surgical History History of ankle surgery ORIF left ankle fracture. History of bilateral cataract extraction History of hysterectomy History of mechanical aortic valve replacement (2003) St. Lj valve. History of right knee surgery Ligamentous repair. Family History Family History Mother Depression Family history of coronary artery disease Father Family history of diabetes mellitus in first degree relative Other Diabetes mellitus Family history of arthritis Family history of cardiovascular disease Social History Social History Social History: The patient is and lives in her own home with her small dog. 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 No alcohol or illicit drug use. Surrogate decision maker: Shannon Coterachelle, sister. Code status: Full code
[2022-05-16 15:24] LABS: Troponin I 0.018 ng/mL (0.000-0.034)
[2022-05-16] MEDS: HYDROcodone/acetaminophen (*CRX) 5-325 MG TABLET 1 TAB PO (15:39)
== END 2022-05-16 18:30 | disposition home or self-care (01) ==
PROVIDERS: Emergency Medicine; Emergency Provider Emergency Medicine; PCP Student in an Organized Health Care Education/Training Program
DX: R07.89 Other chest pain (principal); R00.1 Bradycardia, unspecified; I13.0 Hypertensive heart and chronic kidney disease with heart failure and stage 1 through stage 4 chronic kidney disease, or unspecified chronic kidney disease; E11.22 Type 2 diabetes mellitus with diabetic chronic kidney disease; N18.9 Chronic kidney disease, unspecified; I50.9 Heart failure, unspecified; Z79.01 Long term (current) use of anticoagulants; F32.9 Major depressive disorder, single episode, unspecified; F41.9 Anxiety disorder, unspecified; G47.30 Sleep apnea, unspecified; Z87.442 Personal history of urinary calculi; I48.91 Unspecified atrial fibrillation
CPT/HCPCS: 36415; 71046; 80053; 83690; 84484; 85025; 85610; 85730; 93005; 99283; A9270

== ENCOUNTER 2022-09-26 10:39 | Outpatient (CLI) | payer OTHER, SELFPAY ==
[2022-09-26 11:09] LABS: Basophils Absolute Auto 0.1 K/mm3 (0.0-0.1); Basophils Percent Auto 1.5 % (0.2-1.2); Eosinophils Absolute Auto 0.2 K/mm3 (0-0.3); Eosinophils Percent Auto 4.6 % (0-4.4); Hematocrit 33.7 % (37.0-47.0); Hemoglobin 10.3 g/dL (12.0-15.0); Immature Granulocyte Absolute 0.01 K/mm3 (0.00-0.031); Immature Granulocyte Percent A 0.2 % (0-0.5); Lymphocytes Absolute Auto 1.11 K/mm3 (0.9-3.2); Lymphocytes Percent Auto 24.1 % (18.3-44.2); Mean Corpuscular HGB Conc 30.6 g/dl (32-36); Mean Corpuscular Volume 104.7 fl (80-100); Monocytes Absolute Auto 0.5 K/mm3 (0.1-0.6); Monocytes Percent Auto 11.1 % (2.6-8.5); Neutrophils Absolute Auto 2.7 K/mm3 (1.3-6.7); Neutrophils Percent Auto 58.5 % (45.5-73.1); Platelet Count Result 246 k/mm3 (150-375); Red Blood Count 3.22 M/mm3 (4.2-5.4); Red Cell Distribution Width 12.7 % (11.5-14.5); White Blood Count 4.6 K/mm3 (4.5-10.0)
[2022-09-26 11:16] LABS: Prothrombin Time 23.9 Seconds (11.1-14.7)
[2022-09-26 11:17] LABS: Anion Gap 8 mmol/L (8-16); Blood Urea Nitrogen 28 mg/dL (7-17); Calcium 10.1 mg/dL (8.4-10.2); Carbon Dioxide 25 mmol/L (22-30); Chloride 106 mmol/L (98-107); Estimated Glomerular Filt Rate 40; Glucose 205 mg/dL (65-110); Potassium 4.7 mmol/L (3.4-5.0); Sodium 139 mmol/L (137-145)
== END 2022-09-26 10:40 | disposition home or self-care (01) ==
PROVIDERS: PCP Student in an Organized Health Care Education/Training Program; Visit Provider Student in an Organized Health Care Education/Training Program
DX: Z79.01 Long term (current) use of anticoagulants (principal); N17.9 Acute kidney failure, unspecified
CPT/HCPCS: 36415; 80048; 85025; 85610

== ENCOUNTER 2022-10-16 14:17 | Outpatient (CLI) | payer OTHER, SELFPAY ==
[2022-10-16 15:02] LABS: INR 2.4; Prothrombin Time 27.8 Seconds (11.1-14.7)
== END 2022-10-16 14:18 | disposition home or self-care (01) ==
LOC: ANHLAB 14:19
PROVIDERS: PCP Student in an Organized Health Care Education/Training Program; Visit Provider Student in an Organized Health Care Education/Training Program
DX: Z79.01 Long term (current) use of anticoagulants (principal)
CPT/HCPCS: 36415; 85610

== ENCOUNTER 2023-02-03 15:04 | Outpatient (CLI) | payer OTHER, SELFPAY ==
--- NOTE | ~2023-02-03 | XR_ITS ---
EXAM: XR hand LT min 3V, XR hand RT min 3V DATE: 02/03/2023 16:20 HISTORY: MULTIPLE JOINT PAIN . COMPARISON: X-ray left hand 01/07/2021, x-ray right wrist 01/07/2021. FINDINGS: Decreased mineralization. Old left ulnar styloid fracture. No acute fracture or dislocatio n. No lytic or blastic lesion. Scattered arthritic changes involving the joints of the hand and wrist s bilaterally, most severe at the bilateral trapeziometacarpal joints. Extensive chondrocalcinosis. N o subluxations. Old distal right radial fracture. No erosion or periosteal change. Vascular calcifica tions. IMPRESSION: Osteopenia. Bilateral hand polyarticular arthritis, with extensive chondrocalcinosis. Swetha nges are most severe in the bilateral trapeziometacarpal joints. Reviewed, dictated and finalized at location K. H COOK IMPRESSION: Osteopenia. Bilateral hand polyarticular arthritis, with extensive chondrocalcinosis. Changes are most severe in the bilateral trapeziometacarpal joints.
--- NOTE | ~2023-02-03 | XR_ITS ---
EXAM: XR shoulder LT min 2V DATE: 02/03/2023 16:19 HISTORY: MULTIPLE JOINT PAIN . COMPARISON: None available. FINDINGS: Partially visualized sternotomy fixation wires, with multiple wire fractures. Cardiac valv e replacement. Decreased mineralization. No fracture or dislocation. No lytic or blastic lesion. Vinny drocalcinosis. Moderate AC joint and glenohumeral joint arthritic change. No erosion or periosteal change. Soft tiss ues within normal limits. IMPRESSION: Multiple fractured sternotomy wires. Osteopenia. Polyarticular left shoulder arthritis wi th chondrocalcinosis. Reviewed, dictated and finalized at location K. LE STITCHING MACHINE OPERATOR IMPRESSION: Multiple fractured sternotomy wires. Osteopenia. Polyarticular left shoulder arthritis with chondrocalcinosis.
--- NOTE | ~2023-02-03 | XR_ITS ---
EXAM: XR knee RT 3V, XR knee LT 3V DATE: 02/03/2023 16:20 HISTORY: MULTIPLE JOINT PAIN . COMPARISON: 05/30/2011. FINDINGS: Decreased mineralization. No fracture or dislocation. No lytic or blastic lesion. Moderate medial and lateral bilateral joint space narrowing. Bilateral medial and lateral compartment chondro calcinosis. Tricompartmental osteophytosis, moderate in the medial and lateral compartments, severe i n the patellofemoral compartments. 2.4 cm loose body in the posterior aspect of the right knee joint capsule. No erosion or periosteal change. Vascular calcifications. Small bilateral knee joint effusio ns. IMPRESSION: Osteopenia. Severe tricompartmental bilateral knee arthritis, with chondrocalcinosis. Lik laura loose body in the posterior aspect of the right knee joint. Reviewed, dictated and finalized at location K. OFFICE CLERK IMPRESSION: Osteopenia. Severe tricompartmental bilateral knee arthritis, with chondrocalcinosis. Likely loose body in the posterior aspect of the right knee joint.
[2023-02-03 16:06] LABS: Basophils Absolute Auto 0.1 K/mm3 (0.0-0.1); Basophils Percent Auto 1.5 % (0.2-1.2); Eosinophils Absolute Auto 0.1 K/mm3 (0-0.3); Eosinophils Percent Auto 1.7 % (0-4.4); Hematocrit 39.6 % (37.0-47.0); Hemoglobin 11.9 g/dL (12.0-15.0); Lymphocytes Absolute Auto 1.06 K/mm3 (0.9-3.2); Lymphocytes Percent Auto 19.7 % (18.3-44.2); Mean Corpuscular HGB Conc 30.1 g/dl (32-36); Mean Corpuscular Hemoglobin 29.7 pg (26-34); Mean Corpuscular Volume 98.8 fl (80-100); Monocytes Absolute Auto 0.5 K/mm3 (0.1-0.6); Monocytes Percent Auto 9.8 % (2.6-8.5); Neutrophils Absolute Auto 3.6 K/mm3 (1.3-6.7); Neutrophils Percent Auto 67.3 % (45.5-73.1); Platelet Count Result 259 k/mm3 (150-375); Red Blood Count 4.01 M/mm3 (4.2-5.4); Red Cell Distribution Width 14.6 % (11.5-14.5); White Blood Count 5.4 K/mm3 (4.5-10.0)
[2023-02-03 16:23] LABS: Rheumatoid Factor < 12.0 IU/ML (<12)
[2023-02-03 16:29] LABS: Alanine Aminotransferase 16 U/L (6-35); Albumin Level 4.3 g/dL (3.5-5.1); Alkaline Phosphatase 81 U/L (38-126); Anion Gap 6 mmol/L (8-16); Aspartate Amino Transferase 30 U/L (14-36); Bilirubin,Total 0.5 mg/dL (0.2-1.3); Blood Urea Nitrogen 26 mg/dL (7-17); CRP < 0.5 mg/dL (<1.0); Calcium 11.9 mg/dL (8.4-10.2); Carbon Dioxide 33 mmol/L (22-30); Chloride 100 mmol/L (98-107); Creatine Kinase 46 U/L (30-135); Estimated Glomerular Filt Rate 29; Glucose 107 mg/dL (65-110); Potassium 4.7 mmol/L (3.4-5.0); Sodium 139 mmol/L (137-145); Uric Acid 6.2 mg/dL (2.5-7.5)
[2023-02-03 17:24] LABS: Erythrocyte Sedimentation Rate 33 mm/hr (0-20)
[2023-02-03 17:31] LABS: Folic Acid > 20.0 ng/mL (2.76->20)
[2023-02-03 18:46] LABS: Hepatitis C Virus Antibody Negative (Negative)
[2023-02-03 19:26] LABS: Free T4 Free Thyroxine 0.76 ng/mL (0.78-2.19)
[2023-02-03 21:31] LABS: Vitamin D 25 Hydroxy 44.3 ng/mL
[2023-02-04 10:31] LABS: Magnesium 1.9 mg/dL (1.6-2.3)
[2023-02-05 19:30] LABS: SS-A <1.0; SS-B <1.0
[2023-02-06 16:57] LABS: Hepatitis C RNA, Quant PCR <15 IU/mL
[2023-02-07 14:01] LABS: Anti Nuclear Antibody Titer 1:40 (Negative)
[2023-02-07 22:19] LABS: Anti Cardio Antibody IgM <2.0 MPL-U/mL (<20.0); Anti Cardiolipin Antibody IgA 19.9 APL-U/mL (<20.0); Anti Cardiolipin Antibody IgG <2.0 GPL-U/mL (<20.0)
== END 2023-02-03 15:05 | disposition home or self-care (01) ==
PROVIDERS: PCP Student in an Organized Health Care Education/Training Program; Visit Provider Internal Medicine Rheumatology
DX: M06.9 Rheumatoid arthritis, unspecified (principal); Z11.59 Encounter for screening for other viral diseases; R53.83 Other fatigue; M79.10 Myalgia, unspecified site; E55.9 Vitamin D deficiency, unspecified; E53.8 Deficiency of other specified B group vitamins; D50.9 Iron deficiency anemia, unspecified; M85.812 Other specified disorders of bone density and structure, left shoulder; M19.012 Primary osteoarthritis, left shoulder; M85.841 Other specified disorders of bone density and structure, right hand; M85.842 Other specified disorders of bone density and structure, left hand; M19.042 Primary osteoarthritis, left hand; M19.041 Primary osteoarthritis, right hand; M17.0 Bilateral primary osteoarthritis of knee; M85.861 Other specified disorders of bone density and structure, right lower leg; M85.862 Other specified disorders of bone density and structure, left lower leg
CPT/HCPCS: 36415; 73030; 73130; 73562; 80053; 82306; 82550; 82607; 82728; 82746; 83520; 83735; 84207; 84425; 84439; 84443; 84550; 85025; 85652; 86038; 86039; 86140; 86147; 86200; 86235; 86430; 86803; 87522

== ENCOUNTER 2023-04-29 14:57 | Outpatient (CLI) | payer OTHER, SELFPAY ==
[2023-04-29 16:51] LABS: Alanine Aminotransferase 15 U/L (6-35); Alkaline Phosphatase 83 U/L (38-126); Anion Gap 3 mmol/L (8-16); Aspartate Amino Transferase 40 U/L (14-36); Bilirubin,Total 0.4 mg/dL (0.2-1.3); Blood Urea Nitrogen 21 mg/dL (7-17); Carbon Dioxide 31 mmol/L (22-30); Chloride 105 mmol/L (98-107); Estimated Glomerular Filt Rate 40; Glucose 75 mg/dL (65-110); Magnesium 2.2 mg/dL (1.6-2.3); Phosphorus 3.4 mg/dL (2.5-4.5); Potassium 4.2 mmol/L (3.4-5.0); Sodium 139 mmol/L (137-145)
[2023-04-29 17:05] LABS: Parathyroid Intact 209.5 pg/mL (7.5-53.5)
[2023-04-29 17:14] LABS: Free T4 Free Thyroxine 0.73 ng/mL (0.78-2.19); Vitamin D 25 Hydroxy 45.1 ng/mL
[2023-04-29 17:23] LABS: Total Triiodothyronine (T3) 1.21 NG/ML (0.97-1.69)
[2023-05-01 19:43] LABS: Thyrotropin Receptor Antibody <1.00 IU/L (<=2.00)
[2023-05-02 05:59] LABS: Thyroid Peroxidase Antibodies 7 IU/mL (<9)
[2023-05-06 13:38] LABS: Thyroid Stimulating Immunoglob 145 % baseline (<140)
== END 2023-04-29 14:58 | disposition home or self-care (01) ==
LOC: ANHWCLAB 14:57
PROVIDERS: PCP Student in an Organized Health Care Education/Training Program; Visit Provider Internal Medicine
DX: E21.3 Hyperparathyroidism, unspecified (principal); E05.90 Thyrotoxicosis, unspecified without thyrotoxic crisis or storm
CPT/HCPCS: 36415; 80053; 82306; 83519; 83735; 83970; 84100; 84439; 84443; 84445; 84480; 86376

== ENCOUNTER 2023-05-09 11:54 | Outpatient (CLI) | payer OTHER, SELFPAY ==
[2023-05-09 14:10] LABS: Total Volume 24 Hour Urine 2100 ml
[2023-05-09 14:18] LABS: Creatinine 24 Hour Urine 0.7 gm/24 (0.8-1.8); Creatinine Urine 36.5 mg/dL
== END 2023-05-09 11:55 | disposition home or self-care (01) ==
PROVIDERS: PCP Student in an Organized Health Care Education/Training Program; Visit Provider Internal Medicine
DX: E21.3 Hyperparathyroidism, unspecified (principal); E05.90 Thyrotoxicosis, unspecified without thyrotoxic crisis or storm
CPT/HCPCS: 81050; 82570

== ENCOUNTER 2023-08-02 14:15 | Emergency (ER) | payer OTHER, SELFPAY ==
--- NOTE | ~2023-08-02 | XR_ITS ---
XR wrist LT min 3V 08/02/2023 14:45 Indication: Wrist pain after fall Procedure: 4 views left wrist Comparison: 02/03/2023 Findings: Severe polyarticular osteoarthritis. Chondrocalcinosis. There is atherosclerosis. No acute fracture or traumatic malalignment is identified. No foreign bodies. Impression: 1: No acute fracture. Reviewed, dictated and finalized at location A. Impression: 1: No acute fracture.
[2023-08-02 14:20] VITALS: BP 149/60; PULSE 65; RESP 14; TEMP 36.6; O2SAT 99
--- NOTE | 2023-08-02 14:56 | ED.UPPEXIN ---
HPI - Extremity Injury (Upper) General Chief Complaint: Extremity Injury, Upper Stated Complaint: right wrist pain Time Seen by Provider: 08/02/23 14:34 Source: patient Mode of arrival: ambulatory Limitations: no limitations History of Present Illness HPI narrative: Patient is a 78 y/o female who presents to the ED with c/o L wrist pain. Patient reports she lost her balance and tripped and fell into a wall yesterday. She reached out with her left hand to try to stabilize herself and wedged her hand in the corner of a wall. She has had pain in her left wrist since then. Tried taking Tylenol this morning but denied improvement. Denies numbness or tingling. Denies any other injuries/HI/LOC. Related Data Home Medications Medication Instructions Recorded Confirmed albuterol sulfate 90 mcg/actuation 2 puff inhalation QID PRN 01/09/19 03/18/22 aerosol inhaler Shortness Of Breath ferrous sulfate 325 mg (65 mg 325 mg PO DAILY 01/09/19 03/18/22 iron) tablet gabapentin 300 mg capsule 300 mg PO Q12H 01/09/19 03/18/22 omeprazole 20 mg capsule,delayed 20 mg PO DAILY 01/09/19 03/18/22 release venlafaxine 150 mg 150 mg PO DAILY 01/09/19 03/18/22 capsule,extended release 24 hr hydrocodone 10 mg-acetaminophen 10 - 325 tablet PO Q6H PRN Pain 10/02/21 03/18/22 325 mg tablet furosemide 20 mg tablet 60 mg PO DAILY 03/18/22 03/18/22 lisinopril 20 mg tablet 20 mg PO DAILY 03/18/22 03/18/22 metoprolol tartrate 25 mg tablet 12.5 mg PO Q12H 03/18/22 03/18/22 potassium chloride 10 mEq 10 meq PO DAILY 03/18/22 03/18/22 tablet,extended release rosuvastatin 5 mg tablet 5 mg PO HS 03/18/22 03/18/22 warfarin 6 mg tablet 6 mg PO DAILY 03/18/22 03/18/22 Allergies Allergy/AdvReac Type Severity Reaction Status Date / Time adhesive tape Allergy Intermediate Blister Verified 08/02/23 15:12 bacitracin Allergy Mild Rash Verified 08/02/23 15:12 neomycin Allergy Mild Rash Verified 08/02/23 15:12 polymyxin B Allergy Mild Rash Verified 08/02/23 15:12 cortisone Allergy Unknown Unknown Verified 08/02/23 15:12 Review of Systems Review of Systems: CONSTITUTIONAL: Denies fever, chills, or sweats. MUSCULOSKELETAL: See HPI. NEUROLOGIC: Denies headache, dizziness, numbness, or weakness. All systems reviewed & are unremarkable except as noted in HPI and below PMFSH Past Medical History Medical History Burst fracture of thoracic vertebra Chronic anticoagulation Chronic kidney disease Baseline creatinine is around 1.50. Chronic obstructive pulmonary disease Patient had a pulmonary function test on 02/24/2020 which was suggestive of COPD. Congestive heart failure Echocardiogram in March 2021 showed normal FVC size, moderate LVH, borderline LV systolic function with an EF of 50 to 55%, and grade 1 diastolic dysfunction. Degenerative joint disease Depression Depression with anxiety Diverticulitis Herniated disc Hyperlipidemia Hypertension Kidney stone Obstructive sleep apnea on CPAP On amiodarone therapy Paroxysmal atrial fibrillation Restless leg syndrome Type 2 diabetes mellitus Surgical History Surgical History History of ankle surgery ORIF left ankle fracture. History of bilateral cataract extraction History of hysterectomy History of mechanical aortic valve replacement (2003) St. Lj valve. History of right knee surgery Ligamentous repair. Family History Family History Mother Depression Family history of coronary artery disease Father Family history of diabetes mellitus in first degree relative Other Diabetes mellitus Family history of arthritis Family history of cardiovascular disease Social History Social History Social History: The patient is and lives in her own ho
[2023-08-02] MEDS: traMADol HCL (*CRX) 25 MG TABLET PO (15:23)
== END 2023-08-02 15:38 | disposition home or self-care (01) ==
PROVIDERS: Emergency Provider Physician Assistant; PCP Student in an Organized Health Care Education/Training Program
DX: S63.502A Unspecified sprain of left wrist, initial encounter (principal); I13.0 Hypertensive heart and chronic kidney disease with heart failure and stage 1 through stage 4 chronic kidney disease, or unspecified chronic kidney disease; E11.22 Type 2 diabetes mellitus with diabetic chronic kidney disease; N18.9 Chronic kidney disease, unspecified; I50.9 Heart failure, unspecified; Z79.01 Long term (current) use of anticoagulants; F41.9 Anxiety disorder, unspecified; F32.A Depression, unspecified; J44.9 Chronic obstructive pulmonary disease, unspecified; G47.30 Sleep apnea, unspecified; I48.91 Unspecified atrial fibrillation; E78.5 Hyperlipidemia, unspecified; G25.81 Restless legs syndrome; W01.198A Fall on same level from slipping, tripping and stumbling with subsequent striking against other object, initial encounter
CPT/HCPCS: 73110; 99283; A9270

== ENCOUNTER 2023-08-22 16:23 | Inpatient (IN) | payer OTHER, SELFPAY ==
[2023-08-22] VITALS (7 sets, daily range): BP systolic 132–167; BP diastolic 67–109; PULSE 86–184; RESP 12–27; TEMP 37; O2SAT 97–100
--- NOTE | ~2023-08-22 | XR_ITS ---
XR chest 1V portable Ordering provider: Naveen Rouse MD History: 78 years Female with . shortness of breath x1wk . Comparison: May 16, 2022 FINDINGS: MEDIASTINUM: The cardiac silhouette is slightly enlarged. Postoperative changes in the sternum. LUNGS: No effusion or pneumothorax. Prominent markings in the lower lobes. Pneumonitis cannot be excluded. OTHER: No free air under the diaphragm. IMPRESSION: Prominent markings in the lower lobes. Pneumonitis cannot be excluded. Reviewed, dictated and finalized at location A.
--- NOTE | 2023-08-22 19:05 | ECG_ITS ---
Test Date: 2023-08-22 19:32:31 Measurements Intervals Huger Rate: 91 P: 0 TN: 0 QRS: -44 QRSD: 144 T: 112 QT: 396 QTc: 488 Interpretive Statements UNCERTAIN REGULAR RHYTHM possible accelerated junctional rhythm MARKED LEFT AXIS DEVIATION [QRS AXIS < -30] LEFT BUNDLE BRANCH BLOCK [120+ ms QRS DURATION, 80+ ms Q/S IN V1/V2, 85+ ms R IN I/aVL/V5/V6] No previous ECG available for comparison Electronically Signed On 08-23-2023 13:00:15 CDT by Diogenes Laguna M.D.
[2023-08-22 19:28] LABS: Basophils Absolute Auto 0.1 K/mm3 (0.0-0.1); Basophils Percent Auto 1.2 % (0.2-1.2); Eosinophils Absolute Auto 0.3 K/mm3 (0-0.3); Eosinophils Percent Auto 4.4 % (0-4.4); Hematocrit 30.8 % (37.0-47.0); Immature Granulocyte Absolute 0.01 K/mm3 (0.00-0.031); Immature Granulocyte Percent A 0.2 % (0-0.5); Lymphocytes Absolute Auto 1.36 K/mm3 (0.9-3.2); Mean Corpuscular HGB Conc 29.2 g/dl (32-36); Mean Corpuscular Hemoglobin 27.4 pg (26-34); Mean Corpuscular Volume 93.9 fl (80-100); Mean Platelet Volume 12.2 fl (7.4-10.4); Monocytes Absolute Auto 0.6 K/mm3 (0.1-0.6); Monocytes Percent Auto 10.2 % (2.6-8.5); Neutrophils Absolute Auto 3.4 K/mm3 (1.3-6.7); Platelet Count Result 270 k/mm3 (150-375); Red Blood Count 3.28 M/mm3 (4.2-5.4); Red Cell Distribution Width 14.9 % (11.5-14.5); White Blood Count 5.7 K/mm3 (4.5-10.0)
[2023-08-22 19:37] LABS: Alanine Aminotransferase 12 U/L (6-35); Alkaline Phosphatase 76 U/L (38-126); Anion Gap 6 mmol/L (4-12); Aspartate Amino Transferase 23 U/L (14-36); Bilirubin,Total 0.4 mg/dL (0.2-1.3); Blood Urea Nitrogen 29 mg/dL (7-17); Calcium 10.1 mg/dL (8.4-10.2); Carbon Dioxide 28 mmol/L (22-30); Chloride 106 mmol/L (98-107); Estimated CRCL calculation 28 ml/min; Estimated Glomerular Filt Rate 40; Glucose 122 mg/dL (65-110); Potassium 4.3 mmol/L (3.4-5.0); Sodium 140 mmol/L (137-145)
--- NOTE | 2023-08-22 19:38 | ED.GENADULT ---
HPI - General Adult General Chief complaint: Shortness of Breath/Dyspnea Stated complaint: SHORT OF BREATH X1WK Time Seen by Provider: 08/22/23 18:57 History of Present Illness HPI narrative: this is a 78-year-old female history of mechanical aortic valve and atrial fibrillation presenting dyspnea on exertion. Patient says since 08/15 she is feeling short of breath when she tries to walk around. She has associated palpitations and feel like her heartbeat is irregular. She is denying fevers, chest pain, dyspnea at rest abdominal pain lower extremity edema. She did develop a dry cough yesterday. Patient has been taking her anticoagulation as instructed. Related Data Home Medications Medication Instructions Recorded Confirmed albuterol sulfate 90 mcg/actuation 2 puff inhalation QID PRN 01/09/19 03/18/22 aerosol inhaler Shortness Of Breath ferrous sulfate 325 mg (65 mg 325 mg PO DAILY 01/09/19 03/18/22 iron) tablet gabapentin 300 mg capsule 300 mg PO Q12H 01/09/19 03/18/22 omeprazole 20 mg capsule,delayed 20 mg PO DAILY 01/09/19 03/18/22 release venlafaxine 150 mg 150 mg PO DAILY 01/09/19 03/18/22 capsule,extended release 24 hr hydrocodone 10 mg-acetaminophen 10 - 325 tablet PO Q6H PRN Pain 10/02/21 03/18/22 325 mg tablet furosemide 20 mg tablet 60 mg PO DAILY 03/18/22 03/18/22 lisinopril 20 mg tablet 20 mg PO DAILY 03/18/22 03/18/22 metoprolol tartrate 25 mg tablet 12.5 mg PO Q12H 03/18/22 03/18/22 potassium chloride 10 mEq 10 meq PO DAILY 03/18/22 03/18/22 tablet,extended release rosuvastatin 5 mg tablet 5 mg PO HS 03/18/22 03/18/22 warfarin 6 mg tablet 6 mg PO DAILY 03/18/22 03/18/22 Allergies Allergy/AdvReac Type Severity Reaction Status Date / Time adhesive tape Allergy Intermediate Blister Verified 08/22/23 16:30 bacitracin Allergy Mild Rash Verified 08/22/23 16:30 neomycin Allergy Mild Rash Verified 08/22/23 16:30 polymyxin B Allergy Mild Rash Verified 08/22/23 16:30 cortisone Allergy Unknown Unknown Verified 08/22/23 16:30 [facility] Past Medical History Medical History Burst fracture of thoracic vertebra Chronic anticoagulation Chronic kidney disease Baseline creatinine is around 1.50. Chronic obstructive pulmonary disease Patient had a pulmonary function test on 02/24/2020 which was suggestive of COPD. Congestive heart failure Echocardiogram in March 2021 showed normal FVC size, moderate LVH, borderline LV systolic function with an EF of 50 to 55%, and grade 1 diastolic dysfunction. Degenerative joint disease Depression Depression with anxiety Diverticulitis Herniated disc Hyperlipidemia Hypertension Kidney stone Obstructive sleep apnea on CPAP On amiodarone therapy Paroxysmal atrial fibrillation Restless leg syndrome Type 2 diabetes mellitus Surgical History Surgical History History of ankle surgery ORIF left ankle fracture. History of bilateral cataract extraction History of hysterectomy History of mechanical aortic valve replacement (2003) St. Lj valve. History of right knee surgery Ligamentous repair. Family History Family History Mother Depression Family history of coronary artery disease Father Family history of diabetes mellitus in first degree relative Other Diabetes mellitus Family history of arthritis Family history of cardiovascular disease Social History Social History Social History: The patient is and lives in her own home with her small dog. 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 No alcohol or illicit drug use. Surrogate decision maker: Shannon Vigil, sister. Code status: Full code. Smoking status: Never smoker Alcohol intake: never Substance use: never Lack of Transportation:
[2023-08-22 19:48] LABS: Platelet Estimate Adequate (Adequate)
[2023-08-22 19:49] LABS: Anisocytosis 1+; Schistocytes None Seen
[2023-08-22 19:59] LABS: NT Pro B Type Natriuretic Pept 3640 pg/mL (19.9-100)
[2023-08-22 20:02] LABS: Troponin I 0.015 ng/mL (0.000-0.034)
[2023-08-22 20:08] LABS: INR 3.4; Prothrombin Time 34.4 Seconds (11.1-14.7)
[2023-08-22 20:09] LABS: Partial Thromboplastin Time 66.4 Seconds (22.3-36.8)
[2023-08-22 21:39] LABS: Influenza A QL RT-PCR Negative (Negative); Influenza B QL RT-PCR Negative (Negative); RSV RNA, RT-PCR Negative (Negative); SARS-CoV-2 RNA PCR Negative (Negative)
--- NOTE | 2023-08-22 22:06 | ECG_ITS ---
Test Date: 2023-08-22 22:19:17 Measurements Intervals [place] Rate: 153 P: 0 NV: 0 QRS: -56 QRSD: 152 T: 93 QT: 296 QTc: 473 Interpretive Statements ATRIAL FIBRILLATION WITH RAPID VENTRICULAR RESPONSE MARKED LEFT AXIS DEVIATION [QRS AXIS < -30] LEFT BUNDLE BRANCH BLOCK [120+ ms QRS DURATION, 80+ ms Q/S IN V1/V2, 85+ ms R IN I/aVL/V5/V6] Compared to ECG 08/22/2023 19:32:31 heart rate increased Electronically Signed On 08-23-2023 13:02:48 CDT by Diogenes Laguna M.D.
--- NOTE | 2023-08-22 22:19 | PC.NURSE ---
Pt ambulated with pulse ox to restroom with nuclear reactor technician Anna. Upon arrival back to room, pt noted to have marked increase in HR and increase in SOB HR. EKG obtained. EDP notified.
[2023-08-22] MEDS: dilTIAZem HCl INJ 25 MG/5 ML VIAL (22:24)
--- NOTE | 2023-08-22 22:24 | PC.NURSE ---
VORB to give 10mg IVP of diltiazem. Given at 2222. Patient tolerated well.
--- NOTE | 2023-08-22 22:39 | PM.IMHP ---
H&P: HPI History of Present Illness Date/Time: 08/22/23 22:39 Chief Complaint: sob Narrative: This is a 78-year-old female with past medical history significant for aortic valve replacement mechanical valve on chronic anticoagulation, hypertension, diabetes, congestive heart failure, chronic obstructive pulmonary disease, chronic kidney disease paroxysmal atrial fibrillation, restless leg syndrome, type diabetes mellitus. Patient presented to emergency room due to palpitations and shortness of breath. patient has been in her usual state of health in emergency room patient was found to have atrial fibrillation with rapid ventricular response which responded to IV push of diltiazem 10 mg. Patient has been admitted for further evaluation management and treatment. XR chest 1V portable Ordering provider: Naveen Rouse MD History: 78 years Female with . shortness of breath x1wk . Comparison: May 16, 2022 FINDINGS: MEDIASTINUM: The cardiac silhouette is slightly enlarged. Postoperative changes in the sternum. LUNGS: No effusion or pneumothorax. Prominent markings in the lower lobes. Pneumonitis cannot be excluded. OTHER: No free air under the diaphragm. IMPRESSION: Prominent markings in the lower lobes. Pneumonitis cannot be excluded. Review of Systems Review of Systems: Palpitations, shortness of breath Constitutional: Constitutional: Denies chills, Denies fatigue, Denies fever(s), Denies malaise, Denies night sweats and Denies weakness Eyes: Eyes: Denies change in vision ENT: Denies dysphagia, Denies nasal congestion and Denies odynophagia Cardiovascular: Cardiovascular: Reports palpitations and Reports dyspnea Respiratory: Respiratory: Denies chest congestion and Denies cough Gastrointestinal: Gastrointestinal: Denies abdominal pain, Denies diarrhea, Denies nausea and Denies vomiting Genitourinary: Genitourinary: Denies dysuria Musculoskeletal: Musculoskeletal: Denies myalgias Integumentary/Breasts: Skin/Breast: Denies rash Neurologic: Denies focal weakness and Denies Sensory deficit (Neuro) Psychiatric: Psychiatric: Reports no additional psychiatric complaints and Reports as per HPI Endocrine: Endocrine: Denies cold intolerance, Denies heat intolerance, Denies polyphagia, Denies polydipsia and Denies polyuria Hematologic/Lymphatic: Hematologic/Lymphatic: Reports no additional hematologic/lymphatic complaints and Reports as per HPI Allergic/Immunologic: Allergic/Immunologic: Reports no additional allergic/immunologic complaints and Reports as per HPI [facility] Past Medical History Medical History Burst fracture of thoracic vertebra Chronic anticoagulation Chronic kidney disease Baseline creatinine is around 1.50. Chronic obstructive pulmonary disease Patient had a pulmonary function test on 02/24/2020 which was suggestive of COPD. Congestive heart failure Echocardiogram in March 2021 showed normal FVC size, moderate LVH, borderline LV systolic function with an EF of 50 to 55%, and grade 1 diastolic dysfunction. Degenerative joint disease Depression Depression with anxiety Diverticulitis Herniated disc Hyperlipidemia Hypertension Kidney stone Obstructive sleep apnea on CPAP On amiodarone therapy Paroxysmal atrial fibrillation Restless leg syndrome Type 2 diabetes mellitus Surgical History Surgical History History of ankle surgery ORIF left ankle fracture. History of bilateral cataract extraction History of hysterectomy History of mechanical aortic valve replacement (2003) St. Lj valve. History of right knee surgery Ligamentous repair. Family History Family History Mother Depression Family history of coronary artery disease Father Family history of diabetes mellitus in first degre
[2023-08-22 23:38] LABS: Troponin I 0.013 ng/mL (0.000-0.034)
[2023-08-23] VITALS (15 sets, daily range): BP systolic 103–156; BP diastolic 41–88; PULSE 57–131; RESP 16–18; TEMP 36.2–37.1; O2SAT 96–100; BMI 31.2
[2023-08-23] MEDS: dilTIAZem HCl INJ 25 MG/5 ML VIAL 10 MG IV PUSH (04:11)
--- NOTE | 2023-08-23 09:35 | PM.IMPN ---
Progress Note: A&P Assessment and Plan (1) Paroxysmal atrial fibrillation: Code(s): I48.0 - Paroxysmal atrial fibrillation Status: Acute (2) Atrial fibrillation with RVR: Code(s): I48.91 - Unspecified atrial fibrillation Status: Acute Plan This is a pleasant 78-year-old female with PMH [facility]. Lj's mechanical aortic valve replacement with on warfarin, CAD, COPD, sleep apnea on CPAP, hypertension, hyperlipidemia, rfp-riydidr-ucudygsbk diabetes mellitus, GERD, paroxysmal atrial fibrillation, heart failure preserved ejection fraction, depression, diverticulosis, DJD, CKD stage IIIB. The patient lives at home alone but her daughter handles her medications. The patient presents to [place] ER with complaints of palpitations since 08/16/2023. Associated with dry cough. Admitted on 08/23/2023 as she was found in AFib with RVR. # AFib with RVR -presented in AFib with RVR. Responded well to diltiazem 10 mg IV push x2. -EKG without acute ischemia. LBBB which is old. QTC 473. Chest x-ray with prominent markings in the lower lobes. -OVER THE ROAD DRIVER metoprolol tartrate 12.5 mg p.o. b.i.d., increased to 25 mg p.o. b.i.d. -check magnesium and potassium daily. -continue telemetry. # dry cough -check quad viral screen # history of hypertension -continue to monitor. -continue [facility] THE RO[address] DRIVER Lasix. Metoprolol increased. # [id number]-[id number] diabetes mellitus/borderline -last A1c 6.2% in 2021. Repeat. --glucose monitoring ACHS, LDISS, hypoglycemia protocol #GERD -continue PT omeprazole #Takes methimazole 5 mg p.o. q.day. will continue and recheck TSH T4 and T3 Chronic Conditions -hyperlipidemia: Continue PT a statin -heart failure preserved ejection fraction, history of mechanical aortic valve replacement: Surface echo on 03/30 demonstrates EF of 50-55% with grade 1 diastolic dysfunction. Repeat pending. low salt diet, strict intake/output, daily weights. Continue [facility] THE RO[address] DRIVER Lasix 20 mg p.o. q.day -depression: continue OVER THE RO[address] DRIVER Xanax 0.25 mg p.o. b.i.d. continue [address] THE [address] DRIVER venlafaxine -CKD stage IIIB: Continue OVER THE RO[address] DRIVER cinacalcet. Check daily CMP -sleep apnea on CPAP F/E/N: saline lock IV, replace lytes as needed, heart healthy diabetic diet GI prophylaxis: Continue OVER THE ROAD DRIVER omeprazole 40 mg p.o. q.day DVT prophylaxis: On warfarin Lines: Peripheral IV Code Status: Patient wishes to be full code Dispo: Stable on telemetry floor. Transfer to medical floor telemetry. Continue monitoring telemetry and AFib. Pending echocardiogram. Medication reconciliation obtained via the following: Verified by verbal confirmation with daughter. Social Drivers of Health -Living arrangements: Patient lives at home alone. Reports compliance with medications as her daughter helps her with her pillbox. -Patient was screened for food insecurity, housing instability, transportation needs, utility difficulties, and interpersonal safety. Social Work not consulted as no needs identified. -High risk for readmission: No Agents of Abuse -Illicit drug abuse: Denies -ETOH abuse: Denies -Tobacco/nicotine: Denies -Energy drinks: Denies Heart Failure MIPS: Has heart failure with preserved ejection fraction. No indication for ARNI Note to the patient: The 21st Century Cures Act makes medical notes like these available to patients in the interest of transparency. Please be advised this is a medical document. It is intended for [id number] communication. It is written in medical language and may contain unfamiliar abbreviations or verbiage. Components may appear blunt or direct. Medical documents are intended to carry relevant information, facts as evident, and the clinical opinion of the practitioner at the time of the encounter. This note was generated by a speech recognition system and may contain inherent errors or omissions not intended by the user. Grammatical errors, random word insertions, deletions, p
[2023-08-23 12:29] LABS: Glucose Point of Care 129 mg/dl (65-105)
[2023-08-23] MEDS: GABAPENTIN 300 MG CAPSULE PO ×2 (12:46→21:04)
[2023-08-23] MEDS: METOPROLOL TARTRATE 25 MG TABLET PO ×2 (12:46→21:04)
[2023-08-23] MEDS: CHOLECALCIFEROL 1,000 UNITS TABLET 1000 UNITS PO (12:46)
[2023-08-23] MEDS: methiMAzole 5 MG TAB PO (12:51)
[2023-08-23] MEDS: PANTOPRAZOLE 40 MG TABLET PO (16:40)
[2023-08-23] MEDS: ACETAMINOPHEN 500 MG TABLET 1000 MG PO (16:45)
[2023-08-23 16:53] LABS: Glucose Point of Care 117 mg/dl (65-105)
[2023-08-23] MEDS: WARFARIN (*PBKC) 2 MG, WARFARIN (*PBKC) 5 MG 7 MG PO (17:34)
[2023-08-23] MEDS: POTASSIUM CHLORIDE 10 MEQ ER TABLET PO (21:04)
[2023-08-23 21:18] LABS: Glucose Point of Care 147 mg/dl (65-105)
[2023-08-24] VITALS (16 sets, daily range): BP systolic 126–143; BP diastolic 51–74; PULSE 53–121; RESP 16–20; TEMP 36.2–36.8; O2SAT 96–100
--- NOTE | 2023-08-24 | ECHO_ITS ---
Patient Info Name: Radha Huynh Age: 78 years : 1945 Gender: Female Ht: 64 in Wt: 181 lbs BSA: 1.95 m2 HR: 73 bpm BP: 132 / 51 mmHg Heart Rhythm: Atrial Fibrillation Technical Quality: Fair Exam Date: 08/24/2023 8:46 AM Exam Location: Echo Lab Patient Status: Inpatient Admit Date: 08/22/2023 Staff Ordering Physician: Tad Weathers MD Encapsulator: Gwen Stark [facility] Attending Provider: Tad Weathers MD Referring Physician: Sarahy MADISON; Exam Type: CA echo doppler color flow Study Info Indications I48.1 - Persistent atrial fibrillation Complete two-dimensional, color flow and Doppler transthoracic echocardiogram is performed. Summary 1. Complete two-dimensional, color flow and Doppler transthoracic echocardiogram is performed. 2. Technically somewhat challenging exam. 3. Mild left ventricular enlargement with mild global systolic dysfunction ejection fraction visually estimated about 45%. 4. Biatrial dilation left greater than right. 5. Aortic valve is suboptimally visualized with suspected moderate stenosis,. 6. Aortic valve Dopplers challenging because of atrial fibrillation, estimated valve area and 1.4 cm2. 7. Atrial fibrillation. Left Ventricle Left ventricular chamber dimension is mildly enlarged. Left ventricular systolic function is mildly reduced, estimated at 45-50%. There is mild concentric increased left ventricular wall thickness. The left ventricular diastolic function is indeterminate. Right Ventricle Right ventricular chamber dimension is mildly enlarged. Left Atria Left atrial chamber dimension is moderately enlarged. Right Atria Right atrial chamber dimension is mildly enlarged. Aortic Valve The aortic valve is trileaflet. There is moderate aortic valve stenosis with a peak velocity of 283 cm/s, mean gradient of 11 mmHg, and aortic valve area of 2.0 cm2. Pulmonic Valve The pulmonic valve is not well visualized. Mitral Valve The mitral valve has normal leaflets. There is moderate mitral valve regurgitation. The mitral valve annulus is mildly calcified. Tricuspid Valve The tricuspid valve leaflets are normal. There is mild to moderate tricuspid valve regurgitation. Pericardium/Pleural The pericardium appears normal. Aorta The aortic root size at the sinus of Valsalva is normal. Left Ventricular Outflow Tract Name Value Normal LVOT 2D LVOT Diameter 2.0 cm LVOT Doppler LVOT Peak Gradient 18 mmHg LVOT Mean Gradient 10 mmHg LVOT VTI 42 cm LVOT VTI/AV VTI Ratio 0.6 LVOT Stroke Volume 133 ml LVOT CO 11.9 l/min LVOT CI 6.1 l/min/m2 Pulmonic Valve Name Value Normal RVOT Doppler RVOT Peak Gradient 2 mmHg PV Doppler
--- NOTE | 2023-08-24 00:14 | ECG_ITS ---
Test Date: 2023-08-24 00:27:21 Measurements Intervals [place] Rate: 121 P: -3 WI: 234 QRS: -27 QRSD: 146 T: 102 QT: 345 QTc: 491 Interpretive Statements MOTION ARTIFACT, DIFFICULTY ECG INTERPRETATION SINUS TACHYCARDIA WITH FIRST DEGREE AV BLOCK LEFT BUNDLE BRANCH BLOCK [120+ ms QRS DURATION, 80+ ms Q/S IN V1/V2, 85+ ms R IN I/aVL/V5/V6] ABNORMAL ECG INTERPRETATION BASED ON A DEFAULT AGE OF 40 YEARS Compared to ECG 08/22/2023 22:19:17 SINUS RHYTHM APPEARS TO HAVE REPLACED ATRIAL FIBRILLATION Electronically Signed On 08-24-2023 15:14:50 CDT by Jose Martin M.D.
[2023-08-24 04:42] LABS: Hematocrit 27.7 % (37.0-47.0); Hemoglobin 8.1 g/dL (12.0-15.0); Mean Corpuscular HGB Conc 29.2 g/dl (32-36); Mean Corpuscular Hemoglobin 27.7 pg (26-34); Mean Corpuscular Volume 94.9 fl (80-100); Mean Platelet Volume 12.8 fl (7.4-10.4); Platelet Count Result 237 k/mm3 (150-375); Red Blood Count 2.92 M/mm3 (4.2-5.4); White Blood Count 6.6 K/mm3 (4.5-10.0)
[2023-08-24 04:52] LABS: Prothrombin Time 31.4 Seconds (11.1-14.7)
[2023-08-24 04:54] LABS: Anion Gap 2 mmol/L (4-12); Blood Urea Nitrogen 23 mg/dL (7-17); Calcium 9.9 mg/dL (8.4-10.2); Carbon Dioxide 26 mmol/L (22-30); Chloride 109 mmol/L (98-107); Estimated CRCL calculation 36 ml/min; Estimated Glomerular Filt Rate 43; Glucose 116 mg/dL (65-110); Potassium 4.4 mmol/L (3.4-5.0); Sodium 137 mmol/L (137-145)
[2023-08-24 05:22] LABS: Free T4 Free Thyroxine 0.74 ng/mL (0.78-2.19)
[2023-08-24 05:34] LABS: Total Triiodothyronine (T3) 1.08 NG/ML (0.97-1.69)
[2023-08-24 08:38] LABS: Glucose Point of Care 90 mg/dl (65-105)
[2023-08-24 09:22] LABS: Immature Reticulocyte Fraction 27.5 % (3.0-15.9); Reticulocyte Percent 2.04 % (0.7-4.3); Reticulocytes Absolute 0.06 10^6/uL (0.02-0.10)
[2023-08-24 09:29] LABS: Iron 30 ug/dL (37-170)
[2023-08-24 09:38] LABS: Percent Iron Saturation 8 % (20-50)
[2023-08-24] MEDS: ACETAMINOPHEN 500 MG TABLET 1000 MG PO ×2 (09:41→20:09)
[2023-08-24] MEDS: methiMAzole 5 MG TAB PO (09:42)
[2023-08-24] MEDS: PANTOPRAZOLE 40 MG TABLET PO ×2 (09:42→17:17)
[2023-08-24] MEDS: GABAPENTIN 300 MG CAPSULE PO ×2 (09:42→20:06)
[2023-08-24] MEDS: METOPROLOL TARTRATE 25 MG TABLET PO ×2 (09:42→20:06)
[2023-08-24] MEDS: SIMVASTATIN 10 MG TABLET PO (09:42)
[2023-08-24] MEDS: FUROSEMIDE 20 MG TABLET PO (09:42)
[2023-08-24] MEDS: CHOLECALCIFEROL 1,000 UNITS TABLET 1000 UNITS PO (09:42)
[2023-08-24] MEDS: VENLAFAXINE HCL XR 75 MG CAP.ER.24H 150 MG PO (09:42)
[2023-08-24 10:05] LABS: Ferritin 9.76 ng/mL (11.1-264)
[2023-08-24 10:38] LABS: Folic Acid 14.6 ng/mL (2.76->20)
[2023-08-24 12:02] LABS: Glucose Point of Care 156 mg/dl (65-105)
--- NOTE | 2023-08-24 12:45 | PM.IMPN ---
Progress Note: A&P Assessment and Plan (1) Paroxysmal atrial fibrillation: Code(s): I48.0 - Paroxysmal atrial fibrillation Status: Acute (2) Atrial fibrillation with RVR: Code(s): I48.91 - Unspecified atrial fibrillation Status: Acute Plan This is a pleasant 78-year-old female with PMH [facility]. Lj's mechanical aortic valve replacement with on warfarin, CAD, COPD, sleep apnea on CPAP, hypertension, hyperlipidemia, boc-unelmol-hzrbksthw diabetes mellitus, GERD, paroxysmal atrial fibrillation, heart failure preserved ejection fraction, depression, diverticulosis, DJD, CKD stage IIIB. The patient lives at home alone but her daughter handles her medications. The patient presents to [place] ER with complaints of palpitations since 08/16/2023. Associated with dry cough. Admitted on 08/23/2023 as she was found in AFib with RVR. #Chronic normocytic anemia -sees a baseline in 2022 was 11. Patient unaware of history of anemia presents with hemoglobin 9.0. Now 8.1 on 08/23. Patient denies blood per rectum or dark stools. This may be her baseline but this certainly requires further workup. Check stool occult, check iron panel along with vitamin B12 and folate along with haptoglobin and reticulocyte count since she has mechanical aortic valve. Continue to monitor hemoglobin. # AFib with RVR -presented in AFib with RVR. Responded well to diltiazem 10 mg IV push x2. -EKG without acute ischemia. LBBB which is old. QTC 473. Chest x-ray with prominent markings in the lower lobes. -CERTIFIED NURSING ASSISTANT metoprolol tartrate 12.5 mg p.o. b.i.d., increased to 25 mg p.o. b.i.d. -check magnesium and potassium daily. -continue telemetry. She is now rate controlled. Continue telemetry. # dry cough -quad viral screen negative # history of hypertension -continue to monitor. -continue CERTIFIED NURSING ASSISTANT Lasix. Metoprolol increased. Blood pressure at goal # aej-xhdfcna-wgqoosnzz diabetes mellitus/borderline -last A1c 6.2% in 2021. Repeat pending --glucose monitoring ACHS, LDISS, hypoglycemia protocol #GERD -continue PT omeprazole #Takes methimazole 5 mg p.o. q.day. TSH 4.37, free T4 0.74, total T3 1.08. Follow-up outpatient monitoring. Chronic Conditions -hyperlipidemia: Continue PT a statin -heart failure preserved ejection fraction, history of mechanical aortic valve replacement: Surface echo on 03/30 demonstrates EF of 50-55% with grade 1 diastolic dysfunction. Repeat pending. low salt diet, strict intake/output, daily weights. Continue CERTIFIED NURSING ASSISTANT Lasix 20 mg p.o. q.day -depression: continue CERTIFIED NURSING ASSISTANT Xanax 0.25 mg p.o. b.i.d. continue CERTIFIED NURSING ASSISTANT venlafaxine -CKD stage IIIB: Continue CERTIFIED NURSING ASSISTANT cinacalcet. Check daily CMP -sleep apnea on CPAP F/E/N: saline lock IV, replace lytes as needed, heart healthy diabetic diet GI prophylaxis: Continue CERTIFIED NURSING ASSISTANT omeprazole 40 mg p.o. q.day DVT prophylaxis: On warfarin Lines: Peripheral IV Code Status: Patient wishes to be full code Dispo: Stable on telemetry floor. Transfer to medical floor telemetry. Continue monitoring telemetry and AFib. Pending echocardiogram. Medication reconciliation obtained via the following: Verified by verbal confirmation with daughter. Social Drivers of Health -Living arrangements: Patient lives at home alone. Reports compliance with medications as her daughter helps her with her pillbox. -Patient was screened for food insecurity, housing instability, transportation needs, utility difficulties, and interpersonal safety. Social Work not consulted as no needs identified. -High risk for readmission: No Agents of Abuse -Illicit drug abuse: Denies -ETOH abuse: Denies -Tobacco/nicotine: Denies -Energy drinks: Denies Heart Failure MIPS: Has heart failure with preserved ejection fraction. No indication for ARNI Note to the patient: The 21st Century Cures Act makes medical notes like these available to patients in the interest of tra
[2023-08-24 15:58] LABS: Glucose Point of Care 136 mg/dl (65-105)
[2023-08-24] MEDS: WARFARIN (*PBKC) 2 MG, WARFARIN (*PBKC) 5 MG 7 MG PO (17:17)
[2023-08-24 19:50] LABS: Glucose Point of Care 129 mg/dl (65-105)
[2023-08-24] MEDS: POTASSIUM CHLORIDE 10 MEQ ER TABLET PO (20:06)
[2023-08-25] VITALS (11 sets, daily range): BP systolic 122–147; BP diastolic 51–61; PULSE 51–88; RESP 18–20; TEMP 36.3–36.8; O2SAT 96–100
[2023-08-25 06:05] LABS: Hematocrit 25.7 % (37.0-47.0); Hemoglobin 7.6 g/dL (12.0-15.0); Mean Corpuscular HGB Conc 29.6 g/dl (32-36); Mean Corpuscular Hemoglobin 27.8 pg (26-34); Mean Corpuscular Volume 94.1 fl (80-100); Mean Platelet Volume 12.6 fl (7.4-10.4); Platelet Count Result 213 k/mm3 (150-375); Red Blood Count 2.73 M/mm3 (4.2-5.4); Red Cell Distribution Width 15.1 % (11.5-14.5); White Blood Count 4.9 K/mm3 (4.5-10.0)
[2023-08-25 06:11] LABS: INR 2.9; Prothrombin Time 31.2 Seconds (11.1-14.7)
[2023-08-25 06:19] LABS: Anion Gap 3 mmol/L (4-12); Blood Urea Nitrogen 24 mg/dL (7-17); Calcium 9.9 mg/dL (8.4-10.2); Carbon Dioxide 29 mmol/L (22-30); Chloride 107 mmol/L (98-107); Estimated CRCL calculation 33 ml/min; Estimated Glomerular Filt Rate 40; Glucose 98 mg/dL (65-110); Magnesium 1.8 mg/dL (1.6-2.3); Potassium 4.1 mmol/L (3.4-5.0); Sodium 139 mmol/L (137-145)
[2023-08-25 08:05] LABS: Glucose Point of Care 82 mg/dl (65-105)
[2023-08-25] MEDS: VENLAFAXINE HCL XR 75 MG CAP.ER.24H 150 MG PO (09:15)
[2023-08-25] MEDS: GABAPENTIN 300 MG CAPSULE PO ×2 (09:15→21:38)
[2023-08-25] MEDS: SIMVASTATIN 10 MG TABLET PO (09:15)
[2023-08-25] MEDS: FUROSEMIDE 20 MG TABLET PO (09:15)
[2023-08-25] MEDS: PANTOPRAZOLE 40 MG TABLET PO ×2 (09:15→17:48)
[2023-08-25] MEDS: CHOLECALCIFEROL 1,000 UNITS TABLET 1000 UNITS PO (09:15)
[2023-08-25] MEDS: METOPROLOL TARTRATE 25 MG TABLET PO (09:17)
--- NOTE | 2023-08-25 09:36 | ECG_ITS ---
Test Date: 2023-08-25 10:12:18 Measurements Intervals [place] Rate: 57 P: 0 MT: 0 QRS: -32 QRSD: 157 T: 109 QT: 495 QTc: 483 Interpretive Statements LIKELY SINUS BRADYCARDIA WITH PREMATURE ATRIAL COMPLEXES MARKED LEFT AXIS DEVIATION [QRS AXIS < -30] LEFT BUNDLE BRANCH BLOCK [120+ ms QRS DURATION, 80+ ms Q/S IN V1/V2, 85+ ms R IN I/aVL/V5/V6] Compared to ECG 08/24/2023 00:27:21 SINUS TACHYCARDIA NO LONGER PRESENT Electronically Signed On 08-25-2023 12:13:20 CDT by To Burns M.D.
[2023-08-25] MEDS: methiMAzole 5 MG TAB PO (09:55)
[2023-08-25 12:18] LABS: Glucose Point of Care 127 mg/dl (65-105)
[2023-08-25 16:46] LABS: Glucose Point of Care 117 mg/dl (65-105)
--- NOTE | 2023-08-25 17:21 | PM.IMPN ---
Progress Note: A&P Assessment and Plan (1) Paroxysmal atrial fibrillation: Code(s): I48.0 - Paroxysmal atrial fibrillation Status: Acute (2) Atrial fibrillation with RVR: Code(s): I48.91 - Unspecified atrial fibrillation Status: Acute Plan This is a pleasant 78-year-old female with PMH [facility] Lj's mechanical aortic valve replacement with on warfarin, CAD, COPD, sleep apnea on CPAP, hypertension, hyperlipidemia, bfn-lggwquo-bljqobrss diabetes mellitus, GERD, paroxysmal atrial fibrillation, heart failure preserved ejection fraction, depression, diverticulosis, DJD, CKD stage IIIB. The patient lives at home alone but her daughter handles her medications. The patient presents to [facility] with complaints of palpitations since 08/16/2023. Associated with dry cough. Admitted on 08/23/2023 as she was found in AFib with RVR. 08/25/2023 update: Patient now has AFib with slow response./sinus bradycardia PACs. Holding metoprolol continue to monitor. -hemoglobin continues to downtrend. Will check another tomorrow. Hopefully it was stable and she can go home. She does have vitamin B12 deficiency so we will start vitamin B12 injections. Patient amenable. #Chronic normocytic anemia -sees a baseline in 2022 was 11. Patient unaware of history of anemia presents with hemoglobin 9.0. Now 8.1 on 08/23. Patient denies blood per rectum or dark stools. This may be her baseline but this certainly requires further workup. Check stool occult, check iron panel along with vitamin B12 and folate along with haptoglobin and reticulocyte count since she has mechanical aortic valve. Continue to monitor hemoglobin. # AFib with RVR -presented in AFib with RVR. Responded well to diltiazem 10 mg IV push x2. -EKG without acute ischemia. LBBB which is old. QTC 473. Chest x-ray with prominent markings in the lower lobes. -PAVER metoprolol tartrate 12.5 mg p.o. b.i.d., increased to 25 mg p.o. b.i.d. -check magnesium and potassium daily. -continue telemetry. # dry cough -quad viral screen negative # history of hypertension -continue to monitor. -continue PAVER Lasix. Metoprolol increased. Blood pressure at goal # fbh-riwsoar-rxfysttot diabetes mellitus/borderline -last A1c 6.2% in 2021. Repeat pending --glucose monitoring ACHS, LDISS, hypoglycemia protocol #GERD -continue PT omeprazole #Takes methimazole 5 mg p.o. q.day. TSH 4.37, free T4 0.74, total T3 1.08. Follow-up outpatient monitoring. Chronic Conditions -hyperlipidemia: Continue PT a statin -heart failure preserved ejection fraction, history of mechanical aortic valve replacement: Surface echo on 03/30 demonstrates EF of 50-55% with grade 1 diastolic dysfunction. Repeat pending. low salt diet, strict intake/output, daily weights. Continue PAVER Lasix 20 mg p.o. q.day -depression: continue PAVER Xanax 0.25 mg p.o. b.i.d. continue PAVER venlafaxine -CKD stage IIIB: Continue PAVER cinacalcet. Check daily CMP -sleep apnea on CPAP F/E/N: saline lock IV, replace lytes as needed, heart healthy diabetic diet GI prophylaxis: Continue PAVER omeprazole 40 mg p.o. q.day DVT prophylaxis: On warfarin Lines: Peripheral IV Code Status: Patient wishes to be full code Dispo: Stable on telemetry floor. Transfer to medical floor telemetry. Continue monitoring telemetry and AFib. Pending echocardiogram. Medication reconciliation obtained via the following: Verified by verbal confirmation with daughter. Social Drivers of Health -Living arrangements: Patient lives at home alone. Reports compliance with medications as her daughter helps her with her pillbox. -Patient was screened for food insecurity, housing instability, transportation needs, utility difficulties, and interpersonal safety. Social Work not consulted as no needs identified. -High risk for readmission: No Agents of Abuse -Illicit drug abuse: Denies -ETOH abuse: Denies -Tobacco/nicotine:
[2023-08-25] MEDS: WARFARIN (*PBKC) 2 MG, WARFARIN (*PBKC) 5 MG 7 MG PO (17:48)
[2023-08-25 20:36] LABS: Glucose Point of Care 105 mg/dl (65-105)
[2023-08-25] MEDS: POTASSIUM CHLORIDE 10 MEQ ER TABLET PO (21:38)
[2023-08-26] VITALS: PULSE 65
[2023-08-26 04:00] VITALS: PULSE 60
[2023-08-26 05:27] VITALS: BP 124/49; PULSE 64; RESP 20; TEMP 36.1; O2SAT 97
[2023-08-26 05:38] LABS: Hemoglobin 7.8 g/dL (12.0-15.0); Mean Corpuscular HGB Conc 28.9 g/dl (32-36); Mean Corpuscular Hemoglobin 27.2 pg (26-34); Mean Corpuscular Volume 94.1 fl (80-100); Mean Platelet Volume 12.6 fl (7.4-10.4); Platelet Count Result 217 k/mm3 (150-375); Red Blood Count 2.87 M/mm3 (4.2-5.4); Red Cell Distribution Width 14.9 % (11.5-14.5); White Blood Count 6.1 K/mm3 (4.5-10.0)
[2023-08-26 05:44] LABS: INR 3.1; Prothrombin Time 32.4 Seconds (11.1-14.7)
[2023-08-26 05:47] LABS: Anion Gap 3 mmol/L (4-12); Blood Urea Nitrogen 27 mg/dL (7-17); Calcium 9.8 mg/dL (8.4-10.2); Carbon Dioxide 30 mmol/L (22-30); Chloride 107 mmol/L (98-107); Estimated CRCL calculation 31 ml/min; Estimated Glomerular Filt Rate 36; Glucose 86 mg/dL (65-110); Magnesium 1.7 mg/dL (1.6-2.3); Potassium 4.2 mmol/L (3.4-5.0); Sodium 140 mmol/L (137-145)
[2023-08-26 08:00] VITALS: PULSE 56
[2023-08-26 08:21] LABS: Glucose Point of Care 80 mg/dl (65-105)
[2023-08-26] MEDS: CHOLECALCIFEROL 1,000 UNITS TABLET 1000 UNITS PO (09:23)
[2023-08-26] MEDS: SIMVASTATIN 10 MG TABLET PO (09:23)
[2023-08-26] MEDS: PANTOPRAZOLE 40 MG TABLET PO (09:23)
[2023-08-26] MEDS: GABAPENTIN 300 MG CAPSULE PO (09:23)
[2023-08-26] MEDS: CYANOCOBALAMIN INJ 1,000 MCG/ML VIAL 1000 MCG IM (09:24)
[2023-08-26] MEDS: VENLAFAXINE HCL XR 75 MG CAP.ER.24H 150 MG PO (09:24)
[2023-08-26] MEDS: methiMAzole 5 MG TAB PO (09:24)
[2023-08-26] MEDS: FUROSEMIDE 20 MG TABLET PO (09:24)
[2023-08-26] MEDS: polyethylene glycoL 3350 17 GM POWD.PACK PO (09:35)
[2023-08-26 12:00] VITALS: PULSE 56
--- NOTE | 2023-08-26 12:00 | PM.DS ---
DS: Admitting Diagnosis Discharge Date August 26, 2023 Admitting Diagnosis Palpitations DS: Discharge Diagnosis Discharge Diagnosis (1) Atrial fibrillation with slow ventricular response: Code(s): I48.91 - Unspecified atrial fibrillation Status: Acute (2) Atrial fibrillation with RVR: Code(s): I48.91 - Unspecified atrial fibrillation Status: Acute (3) Vitamin B12 deficiency: Code(s): E53.8 - Deficiency of other specified B group vitamins Status: Acute DS: Summary Hospital Course Hospital Course: This is a pleasant 78-year-old female with PMH [facility] Lj's mechanical aortic valve replacement with on warfarin, CAD, COPD, sleep apnea on CPAP, dementia, hypertension, hyperlipidemia, ffn-kctrswv-nhskatrem diabetes mellitus, GERD, paroxysmal atrial fibrillation, heart failure preserved ejection fraction, depression, diverticulosis, DJD, CKD stage IIIB. The patient lives at home alone but her daughter handles her medications. The patient presents to [facility] with complaints of palpitations since 08/16/2023. Associated with dry cough. Admitted on 08/23/2023 as she was found in AFib with RVR. She was given diltiazem 10 mg IV push x2 on admission. Subsequently return to controlled rate. Her EQUIPMENT TECHNICIAN metoprolol 12.5 mg p.o. PD was increased to 25 mg p.o. b.i.d. however she then developed slow response with ventricular rate in the 40s to 50s. Upon holding the beta-lexy her heart rate came back to the 80s. Patient agreed to be discharged on a low-dose metoprolol succinate 12.5 mg p.o. q.day while monitoring her heart rate and following up with Cardiology outpatient shortly. Her hemoglobin on admission 9.0. Stable between 7.6 and 8.1 thereafter. Approximately year ago was in the 10s. Patient denied start stool/bright red blood per rectum. Her MCV between 94 and 104 therefore likely macrocytic etiology. Folate 14.6. Vitamin B12 274 which is borderline low. Administered IM injection. Discharged on 1000 mcg p.o. q.day. follow-up with Maribell carty/ hematology. She does have a [facility] mechanical aortic valve but her retic count was normal. Haptoglobin pending. Patient is asymptomatic and feeling ready to go home. She is stable for discharge on 08/26/2023. She was full code during admission. Social determinants of health screen done there were no triggers. Patient does have heart failure with preserved ejection fraction so ARNI not indicated. (MIPS) Note to the patient: The Century Cures Act makes medical notes like these available to patients in the interest of transparency. Please be advised this is a medical document. It is intended for wusl-hy-ebzs communication. It is written in medical language and may contain unfamiliar abbreviations or verbiage. Components may appear blunt or direct. Medical documents are intended to carry relevant information, facts as evident, and the clinical opinion of the practitioner at the time of the encounter. This note was generated by a speech recognition system and may contain inherent errors or omissions not intended by the user. Grammatical errors, random word insertions, deletions, pronoun errors and incomplete sentences are occasional consequences of this technology due to software limitations. Not all errors are caught or corrected. If there are questions or concerns about the content of this note or information contained within the body of this dictation they should be addressed directly with author for clarification. The file time of this note does not necessarily represent the time the patient was seen. Time Spent with Patient Time attestation: Total time spent providing and/or coordinating discharge services: Exam Const: General: comfortable and no acute distress Eyes: Pupils: Equal, round and reactive pupils present Neck: Neck: supple Resp: Effort & Inspection: normal respiratory effort Auscultation: henrique
[2023-08-26 12:05] LABS: Glucose Point of Care 142 mg/dl (65-105)
[2023-08-27 11:53] LABS: Haptoglobin <10 mg/dL (43-212)
== END 2023-08-26 13:30 | disposition home or self-care (01) | DRG 309 ==
LOC: ANHED 23:03 → ANHIMU 23:47 → ANH2MED 08-24 18:59
PROVIDERS: Admitting Provider Internal Medicine; Emergency Provider Emergency Medicine; PCP Student in an Organized Health Care Education/Training Program; Visit Provider General Practice
DX: I48.0 Paroxysmal atrial fibrillation (principal); I13.0 Hypertensive heart and chronic kidney disease with heart failure and stage 1 through stage 4 chronic kidney disease, or unspecified chronic kidney disease; I50.32 Chronic diastolic (congestive) heart failure; E53.8 Deficiency of other specified B group vitamins; E11.22 Type 2 diabetes mellitus with diabetic chronic kidney disease; E78.5 Hyperlipidemia, unspecified; F32.A Depression, unspecified; F03.90 Unspecified dementia, unspecified severity, without behavioral disturbance, psychotic disturbance, mood disturbance, and anxiety; G47.33 Obstructive sleep apnea (adult) (pediatric); I25.10 Atherosclerotic heart disease of native coronary artery without angina pectoris; J44.9 Chronic obstructive pulmonary disease, unspecified; K21.9 Gastro-esophageal reflux disease without esophagitis; K57.90 Diverticulosis of intestine, part unspecified, without perforation or abscess without bleeding; N18.32 Chronic kidney disease, stage 3b; Z95.2 Presence of prosthetic heart valve; Z79.01 Long term (current) use of anticoagulants; Z99.89 Dependence on other enabling machines and devices; Z79.85 Long-term (current) use of injectable non-insulin antidiabetic drugs
CPT/HCPCS: 36415; 71045; 80048; 80053; 82607; 82728; 82746; 82948; 83010; 83540; 83550; 83735; 83880; 84439; 84443; 84480; 84484; 85025; 85027; 85046; 85610; 85730; 87637; 93005; 93306; 96374; 96376; 99285; A9270; G0378; J3420

== ENCOUNTER 2023-10-31 18:20 | Observation (INO) | payer OTHER, SELFPAY ==
--- NOTE | ~2023-10-31 | XR_ITS ---
EXAMINATION: XR chest 2V Exam Date/Time: 10/31/2023 19:50 CDT HISTORY: Dizziness Comparison: 08/22/2023. RESULT: Lines, tubes, and devices: Cardiac valve replacement. Fractured sternotomy wires remain in stable po sition. Lungs and pleura: Chronic left lateral pleural blunting, likely scar or prominent pericardial fat pa d. Emphysematous/senescent change. Cardiomediastinal silhouette: Stable. Other: No acute osseous or upper abdominal finding. IMPRESSION: No acute cardiopulmonary process. Reviewed, dictated and finalized at location K.
[2023-10-31 18:28] VITALS: BP 153/100; PULSE 64; RESP 22; TEMP 36.3; O2SAT 99
--- NOTE | 2023-10-31 18:29 | ECG_ITS ---
Test Date: 2023-10-31 18:35:18 Measurements Intervals [place] Rate: 103 P: 0 CT: 0 QRS: -29 QRSD: 138 T: 126 QT: 334 QTc: 438 Interpretive Statements POSSIBLE ATRIAL FIBRILLATION WITH RAPID VENTRICULAR RESPONSE WITH ABERRANT CONDUCTION OR VENTRICULAR PREMATURE COMPLEXES LEFT BUNDLE BRANCH BLOCK [120+ ms QRS DURATION, 80+ ms Q/S IN V1/V2, 85+ ms R IN I/aVL/V5/V6] Compared to ECG 08/25/2023 10:12:18 Sinus bradycardia no longer present Electronically Signed On 11-01-2023 10:36:57 CDT by To Burns M.D.
[2023-10-31 19:29] VITALS: BP 144/90; PULSE 100; RESP 18; O2SAT 98
[2023-10-31 19:33] VITALS: O2SAT 96
[2023-10-31 19:34] LABS: Basophils Absolute Auto 0.1 K/mm3 (0.0-0.1); Basophils Percent Auto 1.3 % (0.2-1.2); Eosinophils Absolute Auto 0.4 K/mm3 (0-0.3); Eosinophils Percent Auto 5.5 % (0-4.4); Hemoglobin 12.4 g/dL (12.0-15.0); Immature Granulocyte Absolute 0.02 K/mm3 (0.00-0.031); Immature Granulocyte Percent A 0.3 % (0-0.5); Mean Corpuscular HGB Conc 31.8 g/dl (32-36); Mean Corpuscular Hemoglobin 31.8 pg (26-34); Monocytes Absolute Auto 0.8 K/mm3 (0.1-0.6); Monocytes Percent Auto 9.9 % (2.6-8.5); Neutrophils Absolute Auto 5.1 K/mm3 (1.3-6.7); Platelet Count Result 247 k/mm3 (150-375); Red Cell Distribution Width 16.7 % (11.5-14.5); White Blood Count 7.7 K/mm3 (4.5-10.0)
[2023-10-31 19:43] LABS: Alanine Aminotransferase 21 U/L (6-35); Albumin Level 3.9 g/dL (3.5-5.1); Alkaline Phosphatase 77 U/L (38-126); Anion Gap 6 mmol/L (4-12); Aspartate Amino Transferase 40 U/L (14-36); Bilirubin,Total 0.4 mg/dL (0.2-1.3); Blood Urea Nitrogen 22 mg/dL (7-17); Calcium 10.8 mg/dL (8.4-10.2); Carbon Dioxide 28 mmol/L (22-30); Chloride 103 mmol/L (98-107); Estimated CRCL calculation 38 ml/min; Estimated Glomerular Filt Rate 48; Glucose 149 mg/dL (65-110); Potassium 4.3 mmol/L (3.4-5.0); Sodium 137 mmol/L (137-145)
[2023-10-31 19:46] LABS: INR 1.8; Prothrombin Time 20.9 Seconds (11.1-14.7)
[2023-10-31 19:47] LABS: Partial Thromboplastin Time 39.4 Seconds (22.3-36.8)
[2023-10-31 20:02] LABS: NT Pro B Type Natriuretic Pept 13700 pg/mL (19.9-100)
[2023-10-31] MEDS: FUROSEMIDE INJ 40 MG/4 ML VIAL IV PUSH (20:28)
--- NOTE | 2023-10-31 20:55 | ED.SOB ---
HPI - SOB/Dyspnea General Chief Complaint: Shortness of Breath/Dyspnea Stated Complaint: dyspnea/ INCREASED hr Time Seen by Provider: 10/31/23 19:18 History of Present Illness HPI Narrative: patient is a 78-year-old female who presents to the ER with shortness of breath and palpitations. Over last couple days she has been having shortness of breath when she exerts herself is no said her heart has been racing. She has history of mechanical valve replacement. She is anticoagulated with warfarin. No chest pain or chest pressure. Denies orthopnea. No productive cough. No known sick contacts. Related Data Home Medications Medication Instructions Recorded Confirmed albuterol sulfate 90 mcg/actuation 2 puff inhalation QID PRN 01/09/19 10/29/23 aerosol inhaler Shortness Of Breath gabapentin 300 mg capsule 300 mg PO Q12H 01/09/19 10/29/23 omeprazole 20 mg capsule,delayed 40 mg PO DAILY 01/09/19 10/29/23 release venlafaxine 150 mg 150 mg PO DAILY 01/09/19 10/29/23 capsule,extended release 24 hr hydrocodone 10 mg-acetaminophen 10 - 325 tablet PO Q6H PRN Pain 10/02/21 10/29/23 325 mg tablet furosemide 20 mg tablet 20 mg PO DAILY 03/18/22 10/29/23 potassium chloride 10 mEq 10 meq PO HS 03/18/22 10/29/23 tablet,extended release warfarin 6 mg tablet 7 mg PO DAILY 03/18/22 10/29/23 cholecalciferol (vitamin D3) 1,000 units PO DAILY 08/23/23 10/29/23 semaglutide 0.25 mg or 0.5 mg (2 0.5 mg subcut WEEKLY 08/23/23 10/29/23 mg/1.5 mL) subcutaneous pen injector simvastatin 10 mg PO HS 08/23/23 10/29/23 Allergies Allergy/AdvReac Type Severity Reaction Status Date / Time adhesive tape Allergy Intermediate Blister Verified 10/29/23 13:21 cortisone Allergy Intermediate Rash Verified 10/29/23 13:21 bacitracin Allergy Mild Rash Verified 10/29/23 13:21 neomycin Allergy Mild Rash Verified 10/29/23 13:21 polymyxin B Allergy Mild Rash Verified 10/29/23 13:21 Review of Systems Review of Systems: All systems reviewed & are unremarkable except as noted in HPI and below Constitutional: Constitutional: Reports no additional constitutional complaints ENT: Reports system reviewed and no additional complaints, except as documented Cardiovascular: Cardiovascular: Denies chest pain, Reports rapid heart rate and Denies radiating jaw, neck or arm pain Respiratory: Respiratory: Denies chest congestion, Denies cough and Reports dyspnea Gastrointestinal: Gastrointestinal: Reports no additional gastrointestinal complaints [facility] Past Medical History Medical History Atrial fibrillation with slow ventricular response Burst fracture of thoracic vertebra Chronic anticoagulation Chronic kidney disease Baseline creatinine is around 1.50. Chronic obstructive pulmonary disease Patient had a pulmonary function test on 02/24/2020 which was suggestive of COPD. Congestive heart failure Echocardiogram in March 2021 showed normal FVC size, moderate LVH, borderline LV systolic function with an EF of 50 to 55%, and grade 1 diastolic dysfunction. Degenerative joint disease Depression Depression with anxiety Diverticulitis Herniated disc Hyperlipidemia Hypertension Kidney stone Obstructive sleep apnea on CPAP On amiodarone therapy Paroxysmal atrial fibrillation Restless leg syndrome Type 2 diabetes mellitus Vitamin B12 deficiency Surgical History Surgical History History of ankle surgery ORIF left ankle fracture. History of bilateral cataract extraction History of hysterectomy History of mechanical aortic valve replacement (2003) [facility]. Lj valve. History of right knee surgery Ligamentous repair. Family History Family History Mother Depression Family history of coronary artery disease CHF (congestive heart failure) Father Family history of diabetes mellitus in
--- NOTE | 2023-10-31 21:50 | PM.IMHP ---
H&P: HPI History of Present Illness Date/Time: 10/31/23 21:50 Chief Complaint: palpitations Narrative: this is a 78-year-old female with past medical history significant for atrial fibrillation, rate controlled anticoagulated, cardioversion, chronic kidney disease, chronic obstructive pulmonary disease, hypertension, obstructive sleep apnea on CPAP, restless leg syndrome, type diabetes mellitus. Patient presents to the emergency room after having episode of palpitations, dizziness, shortness of breath denies chest pain denies leg swelling. Preliminary workup was significant for tachycardia EXAMINATION: XR chest 2V Exam Date/Time: 10/31/2023 19:50 CDT HISTORY: Dizziness Comparison: 08/22/2023. RESULT: Lines, tubes, and devices: Cardiac valve replacement. Fractured sternotomy wires remain in stable position. Lungs and pleura: Chronic left lateral pleural blunting, likely scar or prominent pericardial fat pad. Emphysematous/senescent change. Cardiomediastinal silhouette: Stable. Other: No acute osseous or upper abdominal finding. IMPRESSION: No acute cardiopulmonary process. Review of Systems Review of Systems: palpitations PMFSH Past Medical History Medical History Atrial fibrillation with slow ventricular response Burst fracture of thoracic vertebra Chronic anticoagulation Chronic kidney disease Baseline creatinine is around 1.50. Chronic obstructive pulmonary disease Patient had a pulmonary function test on 02/24/2020 which was suggestive of COPD. Congestive heart failure Echocardiogram in March 2021 showed normal FVC size, moderate LVH, borderline LV systolic function with an EF of 50 to 55%, and grade 1 diastolic dysfunction. Degenerative joint disease Depression Depression with anxiety Diverticulitis Herniated disc Hyperlipidemia Hypertension Kidney stone Obstructive sleep apnea on CPAP On amiodarone therapy Paroxysmal atrial fibrillation Restless leg syndrome Type 2 diabetes mellitus Vitamin B12 deficiency Surgical History Surgical History History of ankle surgery ORIF left ankle fracture. History of bilateral cataract extraction History of hysterectomy History of mechanical aortic valve replacement (2003) [facility]. Lj valve. History of right knee surgery Ligamentous repair. Family History Family History (Updated 10/31/23 @ 23:58 by Singh Hill RN) Mother Family history of cardiovascular disease Family history of arthritis CHF (congestive heart failure) Depression Family history of coronary artery disease Father Family history of cardiovascular disease Diabetes mellitus Family history of arthritis Acute myocardial infarction Family history of diabetes mellitus in first degree relative Sibling , cancer Family history of arthritis Malignant neoplasm of prostate Sibling Family history of arthritis Malignant neoplasm of prostate Social History Social History Social History: The patient is and lives in her own home with her small dog. 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 No alcohol or illicit drug use. Surrogate decision maker: Shannon Rocaelrachelle, sister. Code status: Full code. Smoking status: Never smoker Second hand tobacco smoke exposure: No Alcohol intake: never Substance use: never Substance use type: does not use Do You Feel Safe in your Home?: Yes Lack of Transportation: No Lack of Food: Never True Current Housing: I Have Housing Concerned About Future Housing: No Difficulty Paying Gas/Electric Bills: No Difficulty Paying for Meds: No Currently Unemployed: No Education: Grade School Difficulty w/ Childcare or Family Care: No Living arrangements: alone Occupation/Education: retired
[2023-10-31 22:52] VITALS: BP 159/92; PULSE 99; RESP 17; O2SAT 100
--- NOTE | 2023-10-31 23:30 | ADMGEN ---
This patient, Radha Huynh, was admitted to IMU Room 201-01. Patient/family oriented to hospital policies and general routines including ID bracelet, bed and alarms, visiting hours, pain management, procedures, bathroom and other care routines, personal items, smoking policy, room service/diet, and visiting hours. Information on how to activate the Rapid Response Team has been discussed. Patient/Family are encouraged to report perceived risks to care and to ask questions if they do not understand what they are told or what they should do.
[2023-10-31 23:42] VITALS: PULSE 102
[2023-10-31] MEDS: HYDROcodone/acetaminophen (*CRX) 5-325 MG TABLET 1 TAB PO (23:52)
[2023-10-31 23:54] VITALS: O2SAT 99
[2023-10-31 23:55] VITALS: BMI 28.0
[2023-11-01] VITALS (16 sets, daily range): BP systolic 108–156; BP diastolic 84–93; PULSE 88–123; RESP 18; TEMP 36.1–36.9; O2SAT 96–100
[2023-11-01 00:21] LABS: Glucose Point of Care 129 mg/dl (65-105)
--- NOTE | 2023-11-01 02:50 | ECG_ITS ---
Test Date: 2023-11-01 03:23:21 Measurements Intervals [place] Rate: 113 P: 0 [place]: 0 QRS: -12 QRSD: 146 T: 124 QT: 349 QTc: 479 Interpretive Statements ATRIAL FIBRILLATION WITH RAPID VENTRICULAR RESPONSE WITH ABERRANT CONDUCTION OR VENTRICULAR PREMATURE COMPLEXES LEFT BUNDLE BRANCH BLOCK ABNORMAL ECG COMPARED WITH 10/31/2023, NO SIGNIFICANT CHANGE Electronically Signed On 11-02-2023 07:29:01 CDT by Jose Martin M.D.
[2023-11-01] MEDS: MORPHINE SULFATE (*CRX) 2 MG/ML INJ 1 MG IV PUSH (03:07)
[2023-11-01] MEDS: ALPRAZolam (*CRX) 0.25 MG TABLET PO ×2 (03:08→21:16)
--- NOTE | 2023-11-01 03:18 | PC.NURSE ---
The patient started complaining of new SOB w/chest pressure. MD called and ordered 1mg Morphine IV X 1. Give PRN xanax. Troponin series with EKG. 2L nasal cannula applied, and patient endorses improvement.
[2023-11-01 03:48] LABS: Troponin I 0.039 ng/mL (0.000-0.034)
[2023-11-01 07:08] LABS: Troponin I 0.037 ng/mL (0.000-0.034)
[2023-11-01 09:19] LABS: Troponin I 0.031 ng/mL (0.000-0.034)
[2023-11-01] MEDS: PANTOPRAZOLE 40 MG TABLET PO ×2 (09:48→18:10)
[2023-11-01] MEDS: methiMAzole 5 MG TAB BY MOUTH (09:49)
[2023-11-01] MEDS: VENLAFAXINE HCL XR 75 MG CAP.ER.24H 150 MG PO (09:49)
[2023-11-01] MEDS: GABAPENTIN 300 MG CAPSULE PO ×2 (09:49→21:16)
[2023-11-01] MEDS: predniSONE 10 MG TABLET PO ×2 (09:49→18:10)
[2023-11-01] MEDS: FUROSEMIDE INJ 40 MG/4 ML VIAL IV PUSH (09:50)
[2023-11-01] MEDS: METOPROLOL SUCCINATE EXT REL 12.5 MG TABCR PO ×2 (09:52→14:15)
--- NOTE | 2023-11-01 15:44 | PM.IMPN ---
Progress Note: A&P Assessment and Plan (1) Heart palpitations: Code(s): R00.2 - Palpitations Status: Acute (2) Heart failure: Code(s): I50.9 - Heart failure, unspecified Status: Acute (3) COPD with emphysema: Code(s): J43.9 - Emphysema, unspecified Status: Acute (4) H/O mechanical aortic valve replacement: Code(s): Z95.2 - Presence of prosthetic heart valve Status: Acute (5) Diastolic dysfunction: Code(s): I51.89 - Other ill-defined heart diseases Status: Acute (6) Paroxysmal atrial fibrillation: Code(s): I48.0 - Paroxysmal atrial fibrillation Status: Acute (7) Type 2 diabetes mellitus: Code(s): E11.9 - Type 2 diabetes mellitus without complications Status: Acute (8) Obstructive sleep apnea on CPAP: Code(s): G47.33 - Obstructive sleep apnea (adult) (pediatric); Z99.89 - Dependence on other enabling machines and devices Status: Acute Plan This is a 78-year-old female presents to the ED with shortness of breath and palpitations over past few days. Denies any chest pain or pressure no productive cough no sick contact. She is chronically anticoagulated with warfarin. History of mechanical aortic valve 2009. In the ED evaluation her vitals were stable. EKG showed AFib with RVR. Heart rate goes up to 150 p.o. received a dose of IV diltiazem push. Laboratory evaluation revealed WBC of 7.7 hemoglobin of 12.4 creatinine 0.1. Electrolytes were unremarkable. INR was subtherapeutic at 1.8. Calcium was 10.8 BNP elevated at 13,700. Chest x-ray showed no acute cardiopulmonary process. AFib with RVR increase metoprolol to 25 daily [facility] Lj's mechanical aortic valve replacement anticoagulation with warfarin. Recent echo 08/2023 with EF 45% moderate aortic valve stenosis. Elevated troponin flat trend out related to ACS. Hypercalcemia intermittently high in the past. Will check PTH level this is also been elevated in the past. Coronary artery disease COPD with no wheezing no exacerbation will continue DuoNeb. Sleep apnea on CPAP Dementia Hypertension Hyperlipidemia Kdo-giujibp-lsqlxfhal diabetes mellitus Hyperthyroidism on methimazole Secondary parathyroidism GERD Proximal atrial fibrillation Heart failure with preserved ejection fraction BNP is more elevated at 13,700 thousand seven hundred. Could be related to AFib with RVR Depression Diverticulosis Degenerate joint disease CKD stage IIIB Chronic anemia DVT prophylaxis on warfarin Code status full code Subjective Date/time seen: 11/01/23 15:44 Interval history: Patient feeling a little better. Shortness of breath exertion. AFib controlled at rest, goes into RVR with minimal exertion. Denies any chest pain. Review of Systems Review of Systems: All systems reviewed & are unremarkable except as noted in HPI and below Exam Narrative: GENERAL: Well-appearing, well-nourished, and in no acute distress. HEAD: Normocephalic, atraumatic. ENT: Mucous membranes moist. NECK: Supple. CHEST: Clear to auscultation. No respiratory distress. HEART: Tachycardic and irregularly irregular click of mechanical bowel.Normal peripheral pulses. ABDOMEN: Soft, nontender, nondistended. EXTREMITIES: Normal range of motion. No edema. SKIN: Warm, dry, no rash. NEURO: Alert and oriented x3. PSYCH: Normal mood and affect. Objective Data Vital Signs Vital Signs: Vital Signs - 24 hr 10/31/23 18:28 10/31/23 19:29 10/31/23 19:33 Temperature 97.4 F L Pulse Rate 64 100 Respiratory Rate 22 H 18 Blood Pressure 153/100 H 144/90 H Pulse Oximetry 99 98 96 Oxygen Delivery Room Air 10/31/23 22:52 10/31/23 23:54 11/01/23 00:00 Temperature 96.9 F L Pulse Rate 99 102 H Respiratory Rate 17 18 Blood Pressure 159/92 H 156/91 H Pulse Oximetry 100 99 96 Oxygen Delivery Room Air 10/31/23 23:42 11/01/23 02:00 11/01/23 04:00 Temperature Pulse Rate 102 H 104 H
[2023-11-01] MEDS: WARFARIN (*PBKC) 3 MG TABLET 6 MG PO (18:10)
[2023-11-01 20:57] LABS: Total Triiodothyronine (T3) 1.48 NG/ML (0.97-1.69)
[2023-11-01] MEDS: HYDROcodone/acetaminophen (*CRX) 5-325 MG TABLET 1 TAB PO (21:16)
[2023-11-01] MEDS: SIMVASTATIN 10 MG TABLET PO (21:16)
[2023-11-02] VITALS (15 sets, daily range): BP systolic 112–137; BP diastolic 66–88; PULSE 70–103; RESP 18; TEMP 36–36.6; O2SAT 94–100
[2023-11-02] MEDS: HYDROcodone/acetaminophen (*CRX) 5-325 MG TABLET 1 TAB PO ×3 (01:27→20:07)
[2023-11-02 04:59] LABS: Basophils Percent Auto 0.6 % (0.2-1.2); Eosinophils Percent Auto 0.4 % (0-4.4); Hematocrit 38.6 % (37.0-47.0); Hemoglobin 11.8 g/dL (12.0-15.0); Immature Granulocyte Absolute 0.01 K/mm3 (0.00-0.031); Immature Granulocyte Percent A 0.1 % (0-0.5); Lymphocytes Absolute Auto 0.87 K/mm3 (0.9-3.2); Lymphocytes Percent Auto 12.8 % (18.3-44.2); Mean Corpuscular HGB Conc 30.6 g/dl (32-36); Mean Corpuscular Hemoglobin 30.4 pg (26-34); Mean Corpuscular Volume 99.5 fl (80-100); Mean Platelet Volume 12.9 fl (7.4-10.4); Monocytes Absolute Auto 0.5 K/mm3 (0.1-0.6); Monocytes Percent Auto 7.5 % (2.6-8.5); Neutrophils Absolute Auto 5.4 K/mm3 (1.3-6.7); Neutrophils Percent Auto 78.6 % (45.5-73.1); Platelet Count Result 237 k/mm3 (150-375); Red Blood Count 3.88 M/mm3 (4.2-5.4); Red Cell Distribution Width 15.7 % (11.5-14.5); White Blood Count 6.8 K/mm3 (4.5-10.0)
[2023-11-02 05:27] LABS: Alanine Aminotransferase 19 U/L (6-35); Albumin Level 3.7 g/dL (3.5-5.1); Alkaline Phosphatase 72 U/L (38-126); Anion Gap 6 mmol/L (4-12); Aspartate Amino Transferase 31 U/L (14-36); Bilirubin,Total 0.3 mg/dL (0.2-1.3); Blood Urea Nitrogen 26 mg/dL (7-17); Calcium 10.6 mg/dL (8.4-10.2); Carbon Dioxide 31 mmol/L (22-30); Chloride 95 mmol/L (98-107); Estimated CRCL calculation 35 ml/min; Estimated Glomerular Filt Rate 43; Glucose 185 mg/dL (65-110); Magnesium 1.7 mg/dL (1.6-2.3); Potassium 4.1 mmol/L (3.4-5.0); Sodium 132 mmol/L (137-145)
[2023-11-02] MEDS: CYANOCOBALAMIN 1,000 MCG TABLET 1000 MCG PO (08:37)
[2023-11-02] MEDS: FUROSEMIDE 20 MG TABLET PO (08:37)
[2023-11-02] MEDS: CHOLECALCIFEROL 1,000 UNITS TABLET 1000 UNITS PO (08:37)
[2023-11-02] MEDS: PANTOPRAZOLE 40 MG TABLET PO ×2 (08:37→17:06)
[2023-11-02] MEDS: GABAPENTIN 300 MG CAPSULE PO ×2 (08:37→20:05)
[2023-11-02] MEDS: predniSONE 10 MG TABLET PO ×2 (08:37→17:06)
[2023-11-02] MEDS: VENLAFAXINE HCL XR 75 MG CAP.ER.24H 150 MG PO (08:37)
[2023-11-02] MEDS: methiMAzole 5 MG TAB BY MOUTH (08:38)
[2023-11-02] MEDS: METOPROLOL SUCCINATE EXT REL 25 MG TABCR PO (08:38)
[2023-11-02 09:04] LABS: INR 1.5; Prothrombin Time 18.2 Seconds (11.1-14.7)
--- NOTE | 2023-11-02 13:17 | PM.IMPN ---
Progress Note: A&P Assessment and Plan (1) Heart palpitations: Code(s): R00.2 - Palpitations Status: Acute (2) Heart failure: Code(s): I50.9 - Heart failure, unspecified Status: Acute (3) COPD with emphysema: Code(s): J43.9 - Emphysema, unspecified Status: Acute (4) H/O mechanical aortic valve replacement: Code(s): Z95.2 - Presence of prosthetic heart valve Status: Acute (5) Diastolic dysfunction: Code(s): I51.89 - Other ill-defined heart diseases Status: Acute (6) Paroxysmal atrial fibrillation: Code(s): I48.0 - Paroxysmal atrial fibrillation Status: Acute (7) Type 2 diabetes mellitus: Code(s): E11.9 - Type 2 diabetes mellitus without complications Status: Acute (8) Obstructive sleep apnea on CPAP: Code(s): G47.33 - Obstructive sleep apnea (adult) (pediatric); Z99.89 - Dependence on other enabling machines and devices Status: Acute Plan This is a 78-year-old female presents to the ED with shortness of breath and palpitations over past few days. Denies any chest pain or pressure no productive cough no sick contact. She is chronically anticoagulated with warfarin. History of mechanical aortic valve 2009. In the ED evaluation her vitals were stable. EKG showed AFib with RVR. Heart rate goes up to 150 p.o. received a dose of IV diltiazem push. Laboratory evaluation revealed WBC of 7.7 hemoglobin of 12.4 creatinine 0.1. Electrolytes were unremarkable. INR was subtherapeutic at 1.8. Calcium was 10.8 BNP elevated at 13,700. Chest x-ray showed no acute cardiopulmonary process. AFib with RVR increase metoprolol to 25 daily currently rate controlled. TSH is 4.94 with normal [facility] mechanical aortic valve replacement anticoagulation with warfarin. Recent echo 08/2023 with EF 45% moderate aortic valve stenosis. INR subtherapeutic. INR lower down to 1.5. Will bridge with Lovenox Elevated troponin flat trend out related to ACS. Hypercalcemia intermittently high in the past. Will check PTH level this is also been elevated in the past 05/02 at 209 Coronary artery disease COPD with no wheezing no exacerbation will continue DuoNeb. Sleep apnea on CPAP Dementia Hypertension Hyperlipidemia Kjq-cxitgsp-zrgyywpth diabetes mellitus Hyperthyroidism on methimazole Secondary parathyroidism GERD Proximal atrial fibrillation Heart failure with preserved ejection fraction BNP is more elevated at 13,700 thousand seven hundred. Could be related to AFib with RVR Depression Diverticulosis Degenerate joint disease CKD stage IIIB Chronic anemia DVT prophylaxis on warfarin Code status full code Subjective Date/time seen: 11/02/23 13:17 Interval history: No overnight events. Feeling better. AFib controlled. Wants to get up and move around. Review of Systems Review of Systems: All systems reviewed & are unremarkable except as noted in HPI and below Exam Narrative: GENERAL: Well-appearing, well-nourished, and in no acute distress. HEAD: Normocephalic, atraumatic. ENT: Mucous membranes moist. NECK: Supple. CHEST: Clear to auscultation. No respiratory distress. HEART: Irregularly regular rate controlled, click of mechanical bowel.Normal peripheral pulses. ABDOMEN: Soft, nontender, nondistended. EXTREMITIES: Normal range of motion. No edema. SKIN: Warm, dry, no rash. NEURO: Alert and oriented x3. PSYCH: Normal mood and affect. Objective Data Vital Signs Vital Signs: Vital Signs - 24 hr 11/01/23 14:15 11/01/23 14:00 11/01/23 15:54 Temperature 98.4 F Pulse Rate 120 H 117 H 98 Respiratory Rate 18 Blood Pressure 145/93 H Pulse Oximetry 99 Oxygen Delivery 11/01/23 16:00 11/01/23 18:00 11/01/23 20:29 Temperature 97.6 F Pulse Rate 103 H 97 106 H Respiratory Rate 18 Blood Pressure 149/84 H Pulse Oximetry 100 Oxygen Delivery 11/01/23 20:00 11/02/23 00:00 11/02/23 00:10 Temper
[2023-11-02] MEDS: ENOXAPARIN 80 MG/0.8 ML SYRINGE SUB-Q (14:42)
[2023-11-02] MEDS: WARFARIN (*PBKC) 2 MG TABLET PO (17:06)
[2023-11-02] MEDS: WARFARIN (*PBKC) 3 MG TABLET 6 MG PO (17:06)
[2023-11-02] MEDS: SIMVASTATIN 10 MG TABLET PO (20:05)
[2023-11-02] MEDS: ALPRAZolam (*CRX) 0.25 MG TABLET PO (20:07)
[2023-11-03] VITALS (10 sets, daily range): BP systolic 108–143; BP diastolic 62–97; PULSE 68–90; RESP 12–18; TEMP 36.4–36.6; O2SAT 96–98
[2023-11-03] MEDS: ENOXAPARIN 80 MG/0.8 ML SYRINGE SUB-Q (01:39)
[2023-11-03 05:38] LABS: Basophils Absolute Auto 0.1 K/mm3 (0.0-0.1); Basophils Percent Auto 0.6 % (0.2-1.2); Eosinophils Percent Auto 0.3 % (0-4.4); Hematocrit 37.4 % (37.0-47.0); Hemoglobin 11.6 g/dL (12.0-15.0); Immature Granulocyte Absolute 0.03 K/mm3 (0.00-0.031); Immature Granulocyte Percent A 0.4 % (0-0.5); Immature Platelet Fraction Pct 13.9 % (0.9-11.2); Lymphocytes Absolute Auto 0.81 K/mm3 (0.9-3.2); Lymphocytes Percent Auto 10.3 % (18.3-44.2); Mean Corpuscular Hemoglobin 30.7 pg (26-34); Mean Corpuscular Volume 98.9 fl (80-100); Mean Platelet Volume 13.4 fl (7.4-10.4); Monocytes Absolute Auto 0.6 K/mm3 (0.1-0.6); Monocytes Percent Auto 7.5 % (2.6-8.5); Neutrophils Absolute Auto 6.4 K/mm3 (1.3-6.7); Neutrophils Percent Auto 80.9 % (45.5-73.1); Platelet Count Result 232 k/mm3 (150-375); Red Blood Count 3.78 M/mm3 (4.2-5.4); Red Cell Distribution Width 15.4 % (11.5-14.5); White Blood Count 7.9 K/mm3 (4.5-10.0)
[2023-11-03 05:46] LABS: INR 1.9; Prothrombin Time 22.1 Seconds (11.1-14.7)
[2023-11-03 05:52] LABS: Alanine Aminotransferase 18 U/L (6-35); Albumin Level 3.6 g/dL (3.5-5.1); Alkaline Phosphatase 70 U/L (38-126); Anion Gap 6 mmol/L (4-12); Aspartate Amino Transferase 27 U/L (14-36); Bilirubin,Total 0.2 mg/dL (0.2-1.3); Blood Urea Nitrogen 32 mg/dL (7-17); Calcium 10.4 mg/dL (8.4-10.2); Carbon Dioxide 32 mmol/L (22-30); Chloride 96 mmol/L (98-107); Estimated CRCL calculation 30 ml/min; Estimated Glomerular Filt Rate 36; Glucose 231 mg/dL (65-110); Magnesium 1.8 mg/dL (1.6-2.3); Potassium 3.9 mmol/L (3.4-5.0); Sodium 134 mmol/L (137-145)
[2023-11-03] MEDS: CHOLECALCIFEROL 1,000 UNITS TABLET 1000 UNITS PO (08:31)
[2023-11-03] MEDS: predniSONE 10 MG TABLET PO (08:31)
[2023-11-03] MEDS: VENLAFAXINE HCL XR 75 MG CAP.ER.24H 150 MG PO (08:31)
[2023-11-03] MEDS: METOPROLOL SUCCINATE EXT REL 25 MG TABCR PO (08:31)
[2023-11-03] MEDS: FUROSEMIDE 20 MG TABLET PO (08:31)
[2023-11-03] MEDS: CYANOCOBALAMIN 1,000 MCG TABLET 1000 MCG PO (08:31)
[2023-11-03] MEDS: GABAPENTIN 300 MG CAPSULE PO (08:32)
[2023-11-03] MEDS: methiMAzole 5 MG TAB BY MOUTH (08:32)
[2023-11-03] MEDS: PANTOPRAZOLE 40 MG TABLET PO (08:32)
--- NOTE | 2023-11-03 11:04 | PM.DS ---
DS: Admitting Diagnosis Discharge Date 11/03/2023 Admitting Diagnosis Shortness of breath/palpitations DS: Discharge Diagnosis Discharge Diagnosis (1) Heart palpitations: Code(s): R00.2 - Palpitations Status: Acute (2) Heart failure: Code(s): I50.9 - Heart failure, unspecified Status: Acute (3) COPD with emphysema: Code(s): J43.9 - Emphysema, unspecified Status: Acute (4) H/O mechanical aortic valve replacement: Code(s): Z95.2 - Presence of prosthetic heart valve Status: Acute (5) Diastolic dysfunction: Code(s): I51.89 - Other ill-defined heart diseases Status: Acute (6) Paroxysmal atrial fibrillation: Code(s): I48.0 - Paroxysmal atrial fibrillation Status: Acute (7) Type 2 diabetes mellitus: Code(s): E11.9 - Type 2 diabetes mellitus without complications Status: Acute (8) Obstructive sleep apnea on CPAP: Code(s): G47.33 - Obstructive sleep apnea (adult) (pediatric); Z99.89 - Dependence on other enabling machines and devices Status: Acute DS: Summary Hospital Course Hospital Course: This is a 78-year-old female presents to the ED with shortness of breath and palpitations over past few days. Denies any chest pain or pressure no productive cough no sick contact. She is chronically anticoagulated with warfarin. History of mechanical aortic valve 2009. In the ED evaluation her vitals were stable. EKG showed AFib with RVR. Heart rate goes up to 150 p.o. received a dose of IV diltiazem push. Laboratory evaluation revealed WBC of 7.7 hemoglobin of 12.4 creatinine 0.1. Electrolytes were unremarkable. INR was subtherapeutic at 1.8. Calcium was 10.8 BNP elevated at 13,700. Chest x-ray showed no acute cardiopulmonary process. AFib with RVR increase metoprolol to 25 daily currently rate controlled. TSH is 4.94 with normal. Rate controlled with increased dose. [facility] mechanical aortic valve replacement anticoagulation with warfarin. Recent echo 08/2023 with EF 45% moderate aortic valve stenosis. INR subtherapeutic. INR lower down to 1.5. Will bridge with Lovenox INR 1.9 at discharge. Will continue warfarin dosing and monitor INR as previously ordered Elevated troponin flat trend out related to ACS. Hypercalcemia intermittently high in the past. PTH has been elevated in the past 05/02 at 209 follows with Endocrinology Coronary artery disease COPD with no wheezing no exacerbation will continue DuoNeb. Sleep apnea on CPAP Dementia Hypertension Hyperlipidemia Seq-jpcbfkq-zzpibeygb diabetes mellitus Hyperthyroidism on methimazole Secondary parathyroidism GERD Proximal atrial fibrillation Heart failure with preserved ejection fraction BNP is more elevated at 13,700 thousand seven hundred. Could be related to AFib with RVR Depression Diverticulosis Degenerate joint disease CKD stage IIIB Chronic anemia DVT prophylaxis on warfarin Code status full code Time Spent with Patient Time attestation: Total time spent providing and/or coordinating discharge services: 45 minutes Exam Narrative: GENERAL: Well-appearing, well-nourished, and in no acute distress. HEAD: Normocephalic, atraumatic. ENT: Mucous membranes moist. NECK: Supple. CHEST: Clear to auscultation. No respiratory distress. HEART: Irregularly regular rate controlled, click of mechanical bowel.Normal peripheral pulses. ABDOMEN: Soft, nontender, nondistended. EXTREMITIES: Normal range of motion. No edema. SKIN: Warm, dry, no rash. NEURO: Alert and oriented x3. PSYCH: Normal mood and affect. DS: Data Data Completed and Pending Labs on day of discharge: Labs from last 24 hours 11/03/23 04:36 WBC 7.9 RBC 3.78 L Hgb 11.6 L Hct 37.4 MCV 98.9 MCH 30.7 MCHC 31.0 L RDW 15.4 H Plt Count 232 MPV 13.4 H Immature Gran % (Auto) 0.4 Neut % (Auto) 80.9 H Lymph % (Auto) 10.3 L [place] % (Auto) 7.5 Eos % (Auto) 0.3 Baso % (Auto) 0
[2023-11-03] MEDS: HYDROcodone/acetaminophen (*CRX) 5-325 MG TABLET 1 TAB PO (11:19)
== END 2023-11-03 13:10 | disposition home or self-care (01) ==
LOC: ANHED 21:29 → ANHIMU 11-03 10:15
PROVIDERS: Admitting Provider Internal Medicine; Emergency Provider Emergency Medicine; PCP Student in an Organized Health Care Education/Training Program; Visit Provider Internal Medicine
DX: R00.2 Palpitations (principal); R06.02 Shortness of breath; I48.0 Paroxysmal atrial fibrillation; I13.0 Hypertensive heart and chronic kidney disease with heart failure and stage 1 through stage 4 chronic kidney disease, or unspecified chronic kidney disease; I50.9 Heart failure, unspecified; E11.22 Type 2 diabetes mellitus with diabetic chronic kidney disease; N18.32 Chronic kidney disease, stage 3b; F03.90 Unspecified dementia, unspecified severity, without behavioral disturbance, psychotic disturbance, mood disturbance, and anxiety; E05.90 Thyrotoxicosis, unspecified without thyrotoxic crisis or storm; E21.3 Hyperparathyroidism, unspecified; J43.9 Emphysema, unspecified; J44.9 Chronic obstructive pulmonary disease, unspecified; F41.8 Other specified anxiety disorders; I25.10 Atherosclerotic heart disease of native coronary artery without angina pectoris; E78.5 Hyperlipidemia, unspecified; G47.33 Obstructive sleep apnea (adult) (pediatric); G25.81 Restless legs syndrome; D64.9 Anemia, unspecified; E53.8 Deficiency of other specified B group vitamins; Z95.2 Presence of prosthetic heart valve; Z79.01 Long term (current) use of anticoagulants; Z79.51 Long term (current) use of inhaled steroids; Z79.85 Long-term (current) use of injectable non-insulin antidiabetic drugs; Z79.891 Long term (current) use of opiate analgesic; Z99.89 Dependence on other enabling machines and devices
CPT/HCPCS: 36415; 71046; 80053; 82948; 83735; 83880; 84439; 84443; 84480; 84484; 85025; 85055; 85610; 85730; 93005; 96372; 96374; 96375; 96376; 97116; 97161; 97165; 99285; A9270; G0378; J1650; J1940; J2270; J7512

== ENCOUNTER 2023-11-24 12:14 | Outpatient (CLI) | payer OTHER, SELFPAY ==
--- NOTE | ~2023-11-24 | DEXA_ITS ---
Bone Density Report Name: ANA MARIA BOBO Age: 78 Sex: Female Ethnicity: White Date of : 1945 Indication: postmenopausal; screening for osteoporosis; height loss; history of glucocorticoids; hysterectomy; Referring Provider: BERKLEY JAMES Study: Bone densitometry was performed. Exam Date: November 24, 2023 Accession number: [id number] Bone Density: Region BMD T-score Z-score Classification AP Spine(L1-L4) 0.875 -1.6 1.1 Osteopenia Femoral Neck (Left) 0.589 -2.3 -0.1 Osteopenia Total Hip (Left) 0.667 -2.3 -0.2 Osteopenia Femoral Neck (Right) 0.581 -2.4 -0.1 Osteopenia Total Hip (Right) 0.618 -2.7 -0.6 Osteoporosis Total Hip Mean 0.643 -2.5 -0.4 Osteoporosis World Health Organization criteria for BMD impression classify patients as: Normal (T-score at or above -1.0), Osteopenia (T-score between -1.0 and -2.5), or Osteoporosis (T-score at or below -2.5). 10-year Fracture Risk: FRAX not reported because: Some T-score for Spine Total or Hip Total or Femoral Neck at or below -2.5 Clinical Information Provided by Patient: Has taken Glucocorticoids Has used the following medications: Vitamin D Has the following medical conditions: Hysterectomy Patient maximum height was 66 Menopause Age: 29 No regular weight bearing exercise Does not regularly consume dairy products Drinks caffeinated beverages Onset of menses at age 12 Number of children 3 Impression: The patient has osteoporosis, based on the Right Total Hip T-score. The patient has risk factors, including: history of glucocorticoid therapy. Discussion: INCREASED RISK OF FRACTURE. BONE DENSITY IS UNDESIRABLY LOW AT ONE OR MORE SKELETAL SITES, CONSISTENT WITH POSTMENOPAUSAL OSTEOPOROSIS. This patient's lowest T-score meets the World Health Organization's (WHO) criteria for osteoporosis at one or more sites (T-score -2.5 or below). In untreated patients, the risk of osteoporotic fracture increases approximately two-fold for each 1.0 SD decrease in T-score. Low bone density is not the only risk factor for fracture; also consider factors such as patient's age, frailty or poor health, risk of falling, risk of injury, previous osteoporotic fracture, family history of osteoporosis, cigarette smoking, low body weight, etc. Not everyone with low bone mineral density has osteoporosis; osteomalacia and other metabolic bone disorders should also be considered. Patients who have osteoporosis should be evaluated for specific diseases and conditions (secondary causes) that may cause or contribute to bone loss. The [place] [employer] Endocrinologists (AACE) and National Osteoporosis Foundation (NOF) recommend pharmacologic intervention for all postmenopausal women whose T-score is in this range. The patient should follow a healthful lifesty
== END 2023-11-24 12:15 | disposition home or self-care (01) ==
PROVIDERS: PCP Student in an Organized Health Care Education/Training Program; Visit Provider Internal Medicine
DX: E21.3 Hyperparathyroidism, unspecified (principal); M85.88 Other specified disorders of bone density and structure, other site; M85.852 Other specified disorders of bone density and structure, left thigh; M85.851 Other specified disorders of bone density and structure, right thigh; M81.0 Age-related osteoporosis without current pathological fracture
CPT/HCPCS: 77080

== ENCOUNTER 2023-11-26 10:55 | Outpatient (CLI) | payer OTHER, SELFPAY ==
--- NOTE | ~2023-11-26 | US_ITS ---
EXAMINATION: US thyroid DATE: 11/26/2023 11:35 INDICATION: Hyperthyroidism. TECHNIQUE: Multiple ultrasound images of the thyroid were obtained. COMPARISON: None. FINDINGS: The right thyroid lobe measures 4.0 x 1.8 x 1.9 cm. The left thyroid lobe measures 3.3 x 0.9 x 1.8 c m. There is normal echotexture and echogenicity throughout the thyroid gland. No discrete nodules id entified. Normal vascular flow is present. IMPRESSION: 1. Normal thyroid. Reviewed, dictated and finalized at location A. IMPRESSION: 1. Normal thyroid.
== END 2023-11-26 10:56 | disposition home or self-care (01) ==
LOC: ANHIMG 10:58
PROVIDERS: PCP Student in an Organized Health Care Education/Training Program; Visit Provider Internal Medicine
DX: E21.3 Hyperparathyroidism, unspecified (principal); E05.90 Thyrotoxicosis, unspecified without thyrotoxic crisis or storm
CPT/HCPCS: 76536

== ENCOUNTER 2023-12-07 13:58 | Outpatient (CLI) | payer OTHER, SELFPAY ==
[2023-12-07 15:22] LABS: Alanine Aminotransferase 15 U/L (6-35); Alkaline Phosphatase 65 U/L (38-126); Anion Gap 3 mmol/L (4-12); Aspartate Amino Transferase 33 U/L (14-36); Bilirubin,Total 0.4 mg/dL (0.2-1.3); Blood Urea Nitrogen 16 mg/dL (7-17); Calcium 10.3 mg/dL (8.4-10.2); Carbon Dioxide 35 mmol/L (22-30); Chloride 100 mmol/L (98-107); Estimated Glomerular Filt Rate 43; Glucose 79 mg/dL (65-110); Phosphorus 3.1 mg/dL (2.5-4.5); Potassium 4.1 mmol/L (3.4-5.0); Sodium 138 mmol/L (137-145)
== END 2023-12-07 13:59 | disposition home or self-care (01) ==
PROVIDERS: PCP Student in an Organized Health Care Education/Training Program; Visit Provider Internal Medicine
DX: M81.0 Age-related osteoporosis without current pathological fracture (principal)
CPT/HCPCS: 36415; 80053; 84100

== ENCOUNTER 2023-12-11 14:25 | Outpatient (CLI) | payer OTHER, SELFPAY ==
--- NOTE | ~2023-12-11 | US_ITS ---
EXAMINATION: US arterial ankle brachial ind DATE: 12/11/2023 15:21 INDICATION: Peripheral vascular disease with claudication TECHNIQUE: Segmental pressures and plethysmographic and Doppler waveforms of the brachial and lower e xtremity arteries were obtained. COMPARISON: None. FINDINGS: Right and left brachial artery pressures of 136 mm Hg and 132 mm Hg, respectively, are concordant (no rmal difference <= 30 mmHg). The right ankle-brachial index (RICHARD) is 1.12 (normal >= 0.9-1.0). The right great toe-brachial index (TBI) is 0.69 (normal >= 0.65). Arterial Doppler waveforms demonstrate brisk systolic upstrokes at tisha th right posterior tibial and dorsalis pedis arteries. The left RICHARD is 1.21. The left TBI is 0.63. Arterial Doppler waveforms demonstrate brisk systolic ups trokes at both left posterior tibial and dorsalis pedis arteries. IMPRESSION: 1. Mild arterial occlusive disease to left lower limb with mildly decreased left ABIs and normal left TBI. 2. No significant arterial occlusive disease to the right lower limb with normal right RICHARD and TBI. Reviewed, dictated and finalized at location A. IMPRESSION: 1. Mild arterial occlusive disease to left lower limb with mildly decreased lef t ABIs and normal left TBI. 2. No significant arterial occlusive disease to the right lower limb with caesar l right RICHARD and TBI.
--- NOTE | ~2023-12-11 | US_ITS ---
EXAMINATION: US arterial duplex LE DATE: 12/11/2023 16:32 INDICATION: Claudication TECHNIQUE: Multiple grayscale and Doppler ultrasound images of the arteries of the bilateral lower li mbs were obtained. COMPARISON: None FINDINGS: Small amount of scattered nonhemodynamically significant atherosclerotic plaque along the arteries of the right lower limb with brisk systolic upstrokes with triphasic waveforms at the right external il iac, common femoral, profunda femoral, superficial femoral, popliteal and peroneal arteries and with biphasic waveform at the right posterior tibial artery. Small amount of scattered nonhemodynamically significant atherosclerotic plaque along the arteries of the left lower limb with brisk systolic upstrokes with triphasic waveforms at the left external tristan c, common femoral, superficial femoral, popliteal and peroneal arteries and with biphasic waveform at the left profunda femoral and posterior tibial arteries. IMPRESSION: 1. Small amount of scattered nonhemodynamically significant atherosclerotic plaque in the arteries of both lower limbs with brisk systolic upstrokes throughout. Reviewed, dictated and finalized at location A. IMPRESSION: 1. Small amount of scattered nonhemodynamically significant atherosclerotic martín que in the arteries of both lower limbs with brisk systolic upstrokes throughou t.
== END 2023-12-11 14:26 | disposition home or self-care (01) ==
PROVIDERS: PCP Student in an Organized Health Care Education/Training Program; Visit Provider Student in an Organized Health Care Education/Training Program
DX: I73.9 Peripheral vascular disease, unspecified (principal)
CPT/HCPCS: 93922; 93925

== ENCOUNTER 2023-12-12 19:17 | Observation (INO) | payer OTHER, SELFPAY ==
--- NOTE | ~2023-12-12 | XR_ITS ---
EXAMINATION: XR chest 1V portable Exam Date/Time: 12/12/2023 20:00 CDT HISTORY: foot pain WORSENING SINCE YESTERDAY Comparison: 10/31/2023. RESULT: Lines, tubes, and devices: Sternotomy wires. Fractured sternotomy wires remain in stable position. C ardiac valve replacement. Lungs and pleura: Senescent change. Chronic left lateral pleural blunting, likely scar or prominent pericardial fat. Cardiomediastinal silhouette: Stable. Other: No acute osseous or upper abdominal finding. IMPRESSION: No acute cardiopulmonary process. Reviewed, dictated and finalized at location K.
--- NOTE | ~2023-12-12 | XR_ITS ---
HISTORY: arch pain COMPARISON: 12/14/2023 TECHNIQUE: 2 views of the right foot were performed FINDINGS: Fixation hardware within the medial and lateral malleolus. Moderate calcaneal spur with adjacent well-circumscribed osseous bodies, likely along the plantar fas sanford. Diffuse bony demineralization. Calcified atherosclerosis within the overlying soft tissues. IMPRESSION: Prominent calcaneal spur, as detailed above. Reviewed, dictated and finalized at location A.
--- NOTE | ~2023-12-12 | XR_ITS ---
EXAM: XR foot RT min 3V DATE: 12/12/2023 20:07 HISTORY: Foot pain. COMPARISON: 05/12/2018. FINDINGS: Decreased mineralization. No fracture or dislocation. No lytic or blastic lesion. Moderate hallux valgus. Mild scattered degenerative change. Uncomplicated appearing hardware fixation of the distal tibia and fibula. Plantar enthesopathy. No erosion or periosteal change. Soft tissues within n ormal limits. IMPRESSION: No acute osseous finding in the right foot. Reviewed, dictated and finalized at location K.
--- NOTE | ~2023-12-12 | CT_ITS ---
EXAMINATION: CTA abd aorta runoff DATE: 12/12/2023 21:01 INDICATION: right foot pain, hx of vascular disease TECHNIQUE: Computed tomography angiography of the pelvis was performed with 150 mL Omnipaque-350 intr avenous contrast. Automated exposure control and iterative reconstruction technique were employed. Th e dose-length product was 956.83 mGy-cm. COMPARISON: Ultrasound arterial duplex/ankle brachial index 12/11/2023; x-ray right foot 12/12/2023; CT abdomen pelvis 10/03/2021. FINDINGS: GI tract: No small or large bowel dilation. Normal appendix. Diverticulosis. Mild mid sigmoid wall th ickening without significant inflammatory stranding. Tubular gas-filled connection between 2 loops of sigmoid (axial image [id number]). Mesentery/Peritoneum: No ascites, mass, or free air. Retroperitoneum: No mass. Atherosclerotic abdominal aortic and/or arterial calcifications. No dissect ion, aneurysm, or severe stenosis in the pelvic arteries. Multifocal atherosclerotic calcifications i n the lower extremity arteries, without significant stenosis. 2 vessel flow noted below the level of the bilateral ankles. Pelvis: Partially distended urinary bladder. Absent uterus. Ovaries not visualized. Soft Tissues: Soft tissues unremarkable. Bones: No acute osseous finding. Uncomplicated right ankle fixation hardware. IMPRESSION: No significant stenosis in the lower extremity arteries. 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 Reviewed, dictated and finalized at location K. IMPRESSION: No significant stenosis in the lower extremity arteries. 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
--- NOTE | ~2023-12-12 | XR_ITS ---
XR ankle RT min 3V 12/14/2023 07:54 Indication: Right medial ankle pain Procedure: 4 views right ankle Comparison: 08/20/2008 Findings: There are side plates and screws transfixing the right fibula. There is a obliquely oriente d lag screw of the medial malleolus. Osteopenia. No acute fracture or traumatic malalignment. Ankle m ortise intact. There is atherosclerosis. Prominent plantar calcaneal enthesophyte. Mild osteoarthriti s of the midfoot. Impression: 1: No acute fracture. Reviewed, dictated and finalized at location B. Impression: 1: No acute fracture.
[2023-12-12 19:19] VITALS: BP 127/73; PULSE 87; RESP 20; TEMP 36.5; O2SAT 97
--- NOTE | 2023-12-12 19:46 | ECG_ITS ---
Test Date: 2023-12-12 21:13:10 Measurements Intervals Mclean Rate: 83 P: -6 MD: 201 QRS: -31 QRSD: 140 T: 111 QT: 394 QTc: 465 Interpretive Statements SINUS RHYTHM MARKED LEFT AXIS DEVIATION [QRS AXIS < -30] LEFT BUNDLE BRANCH BLOCK [120+ ms QRS DURATION, 80+ ms Q/S IN V1/V2, 85+ ms R IN I/aVL/V5/V6] Compared to ECG 11/01/2023 03:23:21 Left-axis deviation now present Atrial fibrillation no longer present Electronically Signed On 12-13-2023 11:33:10 CDT by Diogenes Laguna M.D.
[2023-12-12] MEDS: MORPHINE SULFATE (*CRX) 4 MG/ML INJ IV PUSH (20:08)
[2023-12-12] MEDS: ONDANSETRON INJ 4 MG/2 ML VIAL IV PUSH (20:09)
[2023-12-12 20:25] LABS: Basophils Absolute Auto 0.1 K/mm3 (0.0-0.1); Basophils Percent Auto 0.7 % (0.2-1.2); Eosinophils Absolute Auto 0.2 K/mm3 (0-0.3); Eosinophils Percent Auto 1.6 % (0-4.4); Hematocrit 39.8 % (37.0-47.0); Hemoglobin 12.4 g/dL (12.0-15.0); Immature Granulocyte Absolute 0.02 K/mm3 (0.00-0.031); Immature Granulocyte Percent A 0.2 % (0-0.5); Lymphocytes Absolute Auto 1.07 K/mm3 (0.9-3.2); Lymphocytes Percent Auto 11.8 % (18.3-44.2); Mean Corpuscular HGB Conc 31.2 g/dl (32-36); Mean Corpuscular Volume 102.6 fl (80-100); Mean Platelet Volume 12.8 fl (7.4-10.4); Monocytes Absolute Auto 1.2 K/mm3 (0.1-0.6); Monocytes Percent Auto 12.9 % (2.6-8.5); Neutrophils Absolute Auto 6.6 K/mm3 (1.3-6.7); Neutrophils Percent Auto 72.8 % (45.5-73.1); Platelet Count Result 181 k/mm3 (150-375); Red Blood Count 3.88 M/mm3 (4.2-5.4); Red Cell Distribution Width 13.2 % (11.5-14.5); White Blood Count 9.1 K/mm3 (4.5-10.0)
[2023-12-12 20:30] VITALS: PULSE 81; RESP 16; O2SAT 100
[2023-12-12 20:36] LABS: Alanine Aminotransferase 13 U/L (6-35); Albumin Level 4.1 g/dL (3.5-5.1); Alkaline Phosphatase 64 U/L (38-126); Anion Gap 7 mmol/L (4-12); Aspartate Amino Transferase 30 U/L (14-36); Bilirubin,Total 0.3 mg/dL (0.2-1.3); Blood Urea Nitrogen 28 mg/dL (7-17); Calcium 9.7 mg/dL (8.4-10.2); Carbon Dioxide 30 mmol/L (22-30); Chloride 100 mmol/L (98-107); Estimated CRCL calculation 31 ml/min; Estimated Glomerular Filt Rate 40; Glucose 127 mg/dL (65-110); INR 3.3; Magnesium 1.7 mg/dL (1.6-2.3); Potassium 4.1 mmol/L (3.4-5.0); Prothrombin Time 33.7 Seconds (11.1-14.7); Sodium 137 mmol/L (137-145)
[2023-12-12 20:37] LABS: Partial Thromboplastin Time 71.1 Seconds (22.3-36.8)
[2023-12-12 20:47] LABS: Troponin I 0.014 ng/mL (0.000-0.034)
--- NOTE | 2023-12-12 21:17 | ED.GENADULT ---
HPI - General Adult General Chief complaint: Extremity Injury, Lower Stated complaint: right foot pain Time Seen by Provider: 12/12/23 19:39 History of Present Illness HPI narrative: Patient is a 78-year-old female who presents emergency department with chief complaint of right foot pain patient states that her primary care provider ordered outpatient studies on her that were done yesterday to see whether she had arterial issues patient reports the pain has gotten worse and reports that she came to the emergency department to be evaluated because the pain is not getting any better. Related Data Home Medications Medication Instructions Recorded Confirmed albuterol sulfate 90 mcg/actuation 2 puff inhalation QID PRN 01/09/19 11/12/23 aerosol inhaler Shortness Of Breath gabapentin 300 mg capsule 300 mg PO Q12H 01/09/19 11/12/23 venlafaxine 150 mg 150 mg PO DAILY 01/09/19 11/12/23 capsule,extended release 24 hr furosemide 20 mg tablet 20 mg PO DAILY 03/18/22 11/12/23 potassium chloride 10 mEq 10 meq PO HS 03/18/22 11/12/23 tablet,extended release warfarin 6 mg tablet 6 mg PO DAILY 03/18/22 11/12/23 cholecalciferol (vitamin D3) 1,000 units PO DAILY 08/23/23 11/12/23 simvastatin 10 mg PO HS 08/23/23 11/12/23 alprazolam 0.5 mg tablet 0.25 mg PO HS PRN Anxiety 11/01/23 11/12/23 hydrocodone 5 mg-acetaminophen 325 1 - 2 tablet PO Q6H PRN Pain 11/01/23 11/12/23 mg tablet omeprazole 40 mg capsule,delayed 40 mg PO DAILY 11/01/23 11/12/23 release semaglutide 0.25 mg or 0.5 mg (2 0.5 mg subcut WEEKLY 11/12/23 11/12/23 mg/3 mL) subcutaneous pen injector (Ozempic) Allergies Allergy/AdvReac Type Severity Reaction Status Date / Time adhesive tape Allergy Intermediate Blister Verified 11/12/23 13:26 cortisone Allergy Intermediate Rash Verified 11/12/23 13:26 bacitracin Allergy Mild Rash Verified 11/12/23 13:26 neomycin Allergy Mild Rash Verified 11/12/23 13:26 polymyxin B Allergy Mild Rash Verified 11/12/23 13:26 Review of Systems Review of Systems: A 10 system review of systems was completed on the patient and is negative except for what is stated in the HPI. Nursing and ancillary documentation was reviewed. PENDING SALE TO [facility] Past Medical History Medical History Atrial fibrillation with slow ventricular response Burst fracture of thoracic vertebra Chronic anticoagulation Chronic kidney disease Baseline creatinine is around 1.50. Chronic kidney disease, stage 3b Chronic obstructive pulmonary disease Patient had a pulmonary function test on 02/24/2020 which was suggestive of COPD. Congestive heart failure Echocardiogram in March 2021 showed normal FVC size, moderate LVH, borderline LV systolic function with an EF of 50 to 55%, and grade 1 diastolic dysfunction. Degenerative joint disease Depression Depression with anxiety Diverticulitis Herniated disc Hyperlipidemia Hypertension Kidney stone Obstructive sleep apnea on CPAP On amiodarone therapy Paroxysmal atrial fibrillation Restless leg syndrome Type 2 diabetes mellitus Vitamin B12 deficiency Surgical History Surgical History History of ankle surgery ORIF left ankle fracture. History of bilateral cataract extraction History of hysterectomy History of mechanical aortic valve replacement (2003) [facility] valve. History of right knee surgery Ligamentous repair. Family History Family History Mother Family history of cardiovascular disease Family history of arthritis CHF (congestive heart failure) Depression Family history of coronary artery disease Father Family history of cardiovascular disease Diabetes mellitus Family history of arthritis Acute myocardial infarction Family history of diabetes mellitus in first degree relative Sibling Deceas
[2023-12-12] MEDS: MAGNESIUM SULF 2 GM/WATER 50ML 2 GM/50 ML BAG IVPB (21:40)
[2023-12-12 21:49] VITALS: BP 188/85; O2SAT 99
[2023-12-12 22:16] VITALS: BP 166/79; PULSE 83; RESP 19; O2SAT 98
[2023-12-12 22:46] VITALS: BP 131/73
[2023-12-12 23:01] VITALS: BP 145/72; O2SAT 99
--- NOTE | 2023-12-12 23:20 | PC.NURSE ---
Report received from DALE Enrique. Assumed care of patient at this time.
--- NOTE | 2023-12-12 23:22 | PC.NURSE ---
care and report given to DALE Ibarra. all questions answered.
[2023-12-13] VITALS (7 sets, daily range): BP systolic 135–170; BP diastolic 72–97; PULSE 80–95; RESP 18–20; TEMP 36.3–37.7; O2SAT 93–100; BMI 33.9
--- NOTE | 2023-12-13 00:03 | PC.NURSE ---
Patient stated she needed to use the bathroom. 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 Patient was given walker to attempt to ambulate, patient was unable to do so d/t pain. Patient states I can't do it, I hurts to bad, I can't go home like this. Patient was assisted to BSC and was able to use the bathroom and assisted back to the stretcher with assistance. ERP notified.
--- NOTE | 2023-12-13 00:12 | PM.IMHP ---
H&P: HPI History of Present Illness Date/Time: 12/13/23 00:12 Chief Complaint: Pain right foot Narrative: this is a 78-year-old female with past medical history significant for atrial fibrillation, anticoagulated, rate controlled, chronic kidney disease, hypertension, COPD/asthma, depression with anxiety, obstructive sleep apnea on CPAP at nighttime, type diabetes mellitus. Patient presents to the emergency room due to 3-4 days of right foot pain which is localized to the medial aspect of the ankle unable to bear weight on it extremely painful to touch patient has had ankle-brachial Dopplers as well as CT angiogram which do not show occlusion. Patient denies any fevers, rigors, chills, nausea, vomiting, diarrhea however has been unable to ambulate due to pain. Patient has been placed in observation for further evaluation management and treatment. EXAMINATION: XR chest 1V portable Exam Date/Time: 12/12/2023 20:00 CDT HISTORY: foot pain WORSENING SINCE YESTERDAY Comparison: 10/31/2023. RESULT: Lines, tubes, and devices: Sternotomy wires. Fractured sternotomy wires remain in stable position. Cardiac valve replacement. Lungs and pleura: Senescent change. Chronic left lateral pleural blunting, likely scar or prominent pericardial fat. Cardiomediastinal silhouette: Stable. Other: No acute osseous or upper abdominal finding. IMPRESSION: No acute cardiopulmonary process. EXAM: XR foot RT min 3V DATE: 12/12/2023 20:07 HISTORY: Foot pain. COMPARISON: 05/12/2018. FINDINGS: Decreased mineralization. No fracture or dislocation. No lytic or blastic lesion. Moderate hallux valgus. Mild scattered degenerative change. Uncomplicated appearing hardware fixation of the distal tibia and fibula. Plantar enthesopathy. No erosion or periosteal change. Soft tissues within normal limits. IMPRESSION: No acute osseous finding in the right foot. EXAMINATION: CTA abd aorta runoff DATE: 12/12/2023 21:01 INDICATION: right foot pain, hx of vascular disease TECHNIQUE: Computed tomography angiography of the pelvis was performed with 150 mL Omnipaque-350 intravenous contrast. Automated exposure control and iterative reconstruction technique were employed. The dose-length product was 956.83 mGy-cm. COMPARISON: Ultrasound arterial duplex/ankle brachial index 12/11/2023; x-ray right foot 12/12/2023; CT abdomen pelvis 10/03/2021. FINDINGS: GI tract: No small or large bowel dilation. Normal appendix. Diverticulosis. Mild mid sigmoid wall thickening without significant inflammatory stranding. Tubular gas-filled connection between 2 loops of sigmoid (axial image 42/423). Mesentery/Peritoneum: No ascites, mass, or free air. Retroperitoneum: No mass. Atherosclerotic abdominal aortic and/or arterial calcifications. No dissection, aneurysm, or severe stenosis in the pelvic arteries. Multifocal atherosclerotic calcifications in the lower extremity arteries, without significant stenosis. 2 vessel flow noted below the level of the bilateral ankles. Pelvis: Partially distended urinary bladder. Absent uterus. Ovaries not visualized. Soft Tissues: Soft tissues unremarkable. Bones: No acute osseous finding. Uncomplicated right ankle fixation hardware. IMPRESSION: No significant stenosis in the lower extremity arteries. [place]-col[place] fistula in the mid sigmoid, with mild adjacent colonic wall thickening but no significant surrounding inflammatory change, in an area of previously described diverticulitis. Review of Systems Review of Systems: right foot pain unable to bear weight on it Constitutional: Constitutional: Denies chills, Denies fever(s) and Denies night sweats Eyes: Eyes: Denies change in vision ENT: Denies dysphagia and Denies odynophagia Cardiovascular: Cardiovascular: Denies chest pain, Denies leg edema and Denies palpitations Respiratory: Respiratory: Denies cough and Denies dyspnea Gastrointestinal: Gastrointe
--- NOTE | 2023-12-13 01:24 | ADMGEN ---
This patient, Radha Huynh, was admitted to 2 Medical Room 259-01. Patient/family oriented to hospital policies and general routines including ID bracelet, bed and alarms, visiting hours, pain management, procedures, bathroom and other care routines, personal items, smoking policy, room service/diet, and visiting hours. Information on how to activate the Rapid Response Team has been discussed. Patient/Family are encouraged to report perceived risks to care and to ask questions if they do not understand what they are told or what they should do.
[2023-12-13] MEDS: ACETAMINOPHEN 500 MG TABLET 1000 MG PO (01:50)
[2023-12-13] MEDS: predniSONE 20 MG TABLET PO (01:51)
[2023-12-13] MEDS: methylPREDNISolone SOD SUCC 40 MG VIAL IV PUSH (01:51)
[2023-12-13] MEDS: INDOMETHACIN 25 MG CAPSULE PO (01:51)
[2023-12-13] MEDS: PANTOPRAZOLE SODIUM IV 40 MG VIAL IV PUSH ×2 (09:19→21:18)
[2023-12-13] MEDS: predniSONE 5 MG TABLET PO (09:19)
[2023-12-13] MEDS: VENLAFAXINE HCL XR 75 MG CAP.ER.24H 150 MG PO (09:19)
[2023-12-13] MEDS: GABAPENTIN 300 MG CAPSULE PO ×2 (09:19→21:18)
[2023-12-13] MEDS: methiMAzole 5 MG TAB PO (09:19)
[2023-12-13] MEDS: METOPROLOL SUCCINATE EXT REL 12.5 MG TABCR PO (09:20)
[2023-12-13] MEDS: HYDROcodone/acetaminophen (*CRX) 5-325 MG TABLET 1 TAB PO ×2 (09:25→23:34)
--- NOTE | 2023-12-13 10:09 | PM.IMPN ---
Progress Note: A&P Assessment and Plan (1) Gout attack: Code(s): M10.9 - Gout, unspecified Status: Acute Assessment and Plan: started on a steroid patient with chronic kidney disease not a good candidate for NSAIDs or colchicine (2) Foot pain, right: Code(s): M79.671 - Pain in right foot Status: Acute Assessment and Plan: placed in observation in regular medical floor likely to be gout started on a p.o. steroid patient with chronic kidney disease should not get colchicine or NSAID supportive care - norco prn for pain (3) Inability to walk: Code(s): R26.2 - Difficulty in walking, not elsewhere classified Status: Acute Assessment and Plan: secondary to pain (4) Chronic kidney disease, stage 3b: Code(s): N18.32 - Chronic kidney disease, stage 3b Status: Acute Assessment and Plan: continue to monitor BUN and creatinine (5) Osteoporosis: Code(s): M81.0 - Age-related osteoporosis without current pathological fracture Status: Acute Assessment and Plan: follow-up in outpatient setting (6) HTN (hypertension): Code(s): I10 - Essential (primary) hypertension Status: Acute Assessment and Plan: resume home meds continue to monitor (7) COPD with emphysema: Code(s): J43.9 - Emphysema, unspecified Status: Acute Assessment and Plan: stable (8) Paroxysmal atrial fibrillation: Code(s): I48.0 - Paroxysmal atrial fibrillation Status: Acute Assessment and Plan: rate controlled anticoagulated INR is 3.3 will hold Coumadin x 1 re start Coumadin as needed- may need to decrease the dose (takes 6 mg) (9) Type 2 diabetes mellitus: Code(s): E11.9 - Type 2 diabetes mellitus without complications Status: Acute Assessment and Plan: will hold Ozempic (10) Obstructive sleep apnea on CPAP: Code(s): G47.33 - Obstructive sleep apnea (adult) (pediatric); Z99.89 - Dependence on other enabling machines and devices Status: Acute Assessment and Plan: CPAP at night Time Spent With Patient Time with patient: Greater than 35 minutes Subjective Date/time seen: 12/13/23 10:09 Interval history: 12/12- pt is seen and examined today. She reports her pain at 8-9, however I had to wake her up from a nap to assess her. She later clarified that pain is there when she walks and not really there when she is not, but then said it is always there.She seems alert and oriented but poor historian. She never had pain like that before, resting reliefs pain. Review of Systems Review of Systems: right foot pain unable to bear weight on it Constitutional: Constitutional: Denies chills, Denies fever(s) and Denies night sweats Eyes: Eyes: Denies change in vision ENT: Denies dysphagia and Denies odynophagia Cardiovascular: Cardiovascular: Denies chest pain, Denies leg edema, Denies palpitations and Denies dyspnea Respiratory: Respiratory: Denies cough and Denies dyspnea Gastrointestinal: Gastrointestinal: Denies dysphagia, Denies diarrhea, Denies nausea, Denies odynophagia and Denies vomiting Genitourinary: Genitourinary: Denies dysuria Musculoskeletal: Musculoskeletal: Reports other (R foot pain localized to the medial ankle) Integumentary/Breasts: Skin/Breast: Reports erythema (right ankle) and Reports skin pain Neurologic: Denies focal weakness and Denies Sensory deficit (Neuro) Psychiatric: Psychiatric: Reports no additional psychiatric complaints and Reports as per HPI Endocrine: Endocrine: Denies heat intolerance, Denies polyphagia, Denies polydipsia, Denies polyuria and Denies palpitations Hematologic/Lymphatic: Hematologic/Lymphatic: Reports no additional hematologic/lymphatic complaints and Reports as per HPI Allergic/Immunologic: Allergic/Immunologic: Reports no additional allergic/immunologic complaints and Reports as per HPI
[2023-12-13 20:11] LABS: Glucose Point of Care 201 mg/dl (65-105)
[2023-12-14 06:00] VITALS: BP 130/61; PULSE 70; RESP 14; TEMP 36.2; O2SAT 97
[2023-12-14 06:35] LABS: INR 3.7
[2023-12-14 06:41] LABS: Anion Gap 2 mmol/L (4-12); Blood Urea Nitrogen 26 mg/dL (7-17); Calcium 9.6 mg/dL (8.4-10.2); Carbon Dioxide 30 mmol/L (22-30); Chloride 103 mmol/L (98-107); Estimated CRCL calculation 41 ml/min; Estimated Glomerular Filt Rate 53; Glucose 98 mg/dL (65-110); Potassium 4.1 mmol/L (3.4-5.0); Sodium 135 mmol/L (137-145)
--- NOTE | 2023-12-14 07:28 | PM.IMPN ---
Progress Note: A&P Assessment and Plan (1) Gout attack: Code(s): M10.9 - Gout, unspecified Status: Acute Assessment and Plan: - Plan to uptitrate prednisone from 5mg daily to 40mg daily of prednisone as symptoms persist at current dose. Glucose stable on labs this am. (2) Foot pain, right: Code(s): M79.671 - Pain in right foot Status: Acute Assessment and Plan: Symptoms moreso extending to the ankle today on examination, not weightbearing at this time on my exam. Will obtain an ankle view to ensure no occult fracture as patient states osteoporosis history. - Supportive care, prn analgesics. (3) Inability to walk: Code(s): R26.2 - Difficulty in walking, not elsewhere classified Status: Acute Assessment and Plan: Significantly limited d/t pain on my examination. - Plan for pt/ot eval. May require short term placement. (4) Chronic kidney disease, stage 3b: Code(s): N18.32 - Chronic kidney disease, stage 3b Status: Acute Assessment and Plan: - Stable lab values. (5) Osteoporosis: Code(s): M81.0 - Age-related osteoporosis without current pathological fracture Status: Acute Assessment and Plan: - Follow-up in outpatient setting (6) HTN (hypertension): Code(s): I10 - Essential (primary) hypertension Status: Acute Assessment and Plan: Stable, home medications ongoing. (7) COPD with emphysema: Code(s): J43.9 - Emphysema, unspecified Status: Acute Assessment and Plan: - Stable on exam. (8) Paroxysmal atrial fibrillation: Code(s): I48.0 - Paroxysmal atrial fibrillation Status: Acute Assessment and Plan: Stable rate. - Anticoagulated on warfarin, INR is 3.7. Plan to cont. to hold coumadin, consider dose reduction pending INR in the am. (9) Type 2 diabetes mellitus: Code(s): E11.9 - Type 2 diabetes mellitus without complications Status: Acute Assessment and Plan: Stable fbg this am. (10) Obstructive sleep apnea on CPAP: Code(s): G47.33 - Obstructive sleep apnea (adult) (pediatric); Z99.89 - Dependence on other enabling machines and devices Status: Acute Assessment and Plan: CPAP at night (11) Anticoagulation excessive: Status: Acute Assessment and Plan: Hx aortic valve replacement, mechanical. Atrial fibrillation. Plan to hold today's warfarin and consider dose reduction to 4-5mg daily pending INR in the am. Plan Radha continues to have significant pain this am and is not currently able to bear weight (or act against resistance on physical examination). Will have pt/ot evaluation today. Uptitrate steroids to help resolve the gout flare. Time Spent With Patient Time with patient: Greater than 35 minutes Subjective Date/time seen: 12/14/23 07:28 Interval history: Radha describes pain more present in the right ankle - severe pain with flexion. Some pain present even at rest overnight. Denies other concerns this am. States history was acute onset overnight of pain without any trauma - was in bed when pain onset prior to arrival. Describes history of osteoporosis. Review of Systems Review of Systems: All systems reviewed & are unremarkable except as noted in HPI and below Exam Narrative: GENERAL APPEARANCE: Appears to be in no acute distress. HEAD: normocephalic atraumatic ENT: Hearing grossly intact, no nasal discharge NECK: Neck supple, trachea midline. CARDIAC: Normal S1/S2. Rhythm is regular with mechanical click.. No cyanosis or pallor. Extremities are warm and well perfused. LUNGS: Clear to auscultation without rales, rhonchi, wheezing or diminished breath sounds. Respirations even and unlabored. ABDOMEN: BS positive x 4 quadrants. Soft, nondistended, nontender. No guarding or rebound. MSK: No erythema of the right foot. TTP along the plantar lynn
[2023-12-14] MEDS: HYDROcodone/acetaminophen (*CRX) 5-325 MG TABLET 1 TAB PO ×2 (08:45→17:27)
[2023-12-14 08:46] VITALS: PULSE 78
[2023-12-14] MEDS: METOPROLOL SUCCINATE EXT REL 12.5 MG TABCR PO (08:46)
[2023-12-14] MEDS: GABAPENTIN 300 MG CAPSULE PO ×2 (08:46→20:48)
[2023-12-14] MEDS: methiMAzole 5 MG TAB PO (08:46)
[2023-12-14] MEDS: VENLAFAXINE HCL XR 75 MG CAP.ER.24H 150 MG PO (08:46)
[2023-12-14] MEDS: predniSONE 5 MG TABLET PO (08:46)
[2023-12-14] MEDS: PANTOPRAZOLE SODIUM IV 40 MG VIAL IV PUSH ×2 (08:46→20:48)
[2023-12-14 13:55] VITALS: BP 134/60; PULSE 80; RESP 17; TEMP 36.7; O2SAT 99
[2023-12-14] MEDS: predniSONE 20 MG TABLET 40 MG PO (13:57)
[2023-12-14 20:43] VITALS: BP 180/80; PULSE 85; RESP 12; TEMP 36.8; O2SAT 97
[2023-12-14 22:09] VITALS: BP 164/84; PULSE 87; O2SAT 98
[2023-12-15 06:00] VITALS: BP 155/83; PULSE 87; RESP 12; TEMP 36.8; O2SAT 96
[2023-12-15 06:23] LABS: Anion Gap 2 mmol/L (4-12); Blood Urea Nitrogen 25 mg/dL (7-17); Calcium 9.9 mg/dL (8.4-10.2); Carbon Dioxide 30 mmol/L (22-30); Chloride 106 mmol/L (98-107); Estimated CRCL calculation 41 ml/min; Estimated Glomerular Filt Rate 53; Glucose 150 mg/dL (65-110); Potassium 4.4 mmol/L (3.4-5.0); Sodium 138 mmol/L (137-145)
[2023-12-15 08:36] VITALS: PULSE 88
[2023-12-15] MEDS: HYDROcodone/acetaminophen (*CRX) 5-325 MG TABLET 1 TAB PO ×3 (08:36→20:35)
[2023-12-15] MEDS: METOPROLOL SUCCINATE EXT REL 12.5 MG TABCR PO (08:36)
[2023-12-15] MEDS: VENLAFAXINE HCL XR 75 MG CAP.ER.24H 150 MG PO (08:37)
[2023-12-15] MEDS: methiMAzole 5 MG TAB PO (08:37)
[2023-12-15] MEDS: predniSONE 20 MG TABLET 40 MG PO (08:37)
[2023-12-15] MEDS: PANTOPRAZOLE SODIUM IV 40 MG VIAL IV PUSH (08:37)
[2023-12-15] MEDS: GABAPENTIN 300 MG CAPSULE PO ×2 (08:37→20:33)
[2023-12-15 09:47] LABS: INR 2.1; Prothrombin Time 24.3 Seconds (11.1-14.7)
--- NOTE | 2023-12-15 10:10 | PM.IMPN ---
Progress Note: A&P Assessment and Plan (1) Foot pain, right: Code(s): M79.671 - Pain in right foot Status: Acute Assessment and Plan: Symptoms more so extending to the ankle today on examination, not weightbearing at this time on my exam. - Supportive care, prn analgesics. No acute fracture on x ray Right foot x-ray pending (2) Inability to walk: Code(s): R26.2 - Difficulty in walking, not elsewhere classified Status: Acute Assessment and Plan: Significantly limited d/t pain on my examination. - Plan for pt/ot eval. May require short term placement. (3) Gout attack: Code(s): M10.9 - Gout, unspecified Status: Acute Assessment and Plan: 40mg daily of prednisone Glucose stable on labs this am. (4) Anticoagulation excessive: Status: Acute Assessment and Plan: Hx aortic valve replacement, mechanical. Atrial fibrillation. Plan to hold today's warfarin and consider dose reduction to 4-5mg daily pending INR in the am. 12/14 INR 2.1, restart warfarin at 5 mg today, patient came in on 6 mg and was supratherapeutic INR goal 2-3 Patient will need to follow up in her anticoagulation clinic for management (5) Paroxysmal atrial fibrillation: Code(s): I48.0 - Paroxysmal atrial fibrillation Status: Acute Assessment and Plan: Stable rate. - Anticoagulated on warfarin, See above (6) HTN (hypertension): Code(s): I10 - Essential (primary) hypertension Status: Acute Assessment and Plan: Patient hypertensive this morning Restart Lasix, will hold off on other hypertensive meds for now and re-evaluate in the morning (7) COPD with emphysema: Code(s): J43.9 - Emphysema, unspecified Status: Acute Assessment and Plan: - Stable on exam. (8) Obstructive sleep apnea on CPAP: Code(s): G47.33 - Obstructive sleep apnea (adult) (pediatric); Z99.89 - Dependence on other enabling machines and devices Status: Acute Assessment and Plan: CPAP at night (9) Osteoporosis: Code(s): M81.0 - Age-related osteoporosis without current pathological fracture Status: Acute Assessment and Plan: - Follow-up in outpatient setting (10) Chronic kidney disease, stage 3b: Code(s): N18.32 - Chronic kidney disease, stage 3b Status: Acute Assessment and Plan: - Stable lab values. (11) Type 2 diabetes mellitus: Code(s): E11.9 - Type 2 diabetes mellitus without complications Status: Acute Assessment and Plan: Stable fbg this am. Plan Radha continues to have significant pain this am and is not currently able to bear weight (or act against resistance on physical examination). Will have pt/ot evaluation today. Uptitrate steroids to help resolve the gout flare. Warfarin restarted will need to monitor daily INR levels and patient will need to follow-up outpatient Time Spent With Patient Time: Time with patient: Greater than 35 minutes Subjective Date/time seen: 12/15/23 10:10 Interval history: No acute events overnight, patient complains of arch and ankle pain. Denies other concerns this am. Right ankle x ray negative for acute fracture. Will order a x-ray. Review of Systems Review of Systems: All systems reviewed & are unremarkable except as noted in HPI and below Constitutional: Constitutional: Denies chills, Denies fever(s) and Denies night sweats Eyes: Eyes: Denies change in vision ENT: Denies dysphagia and Denies odynophagia Cardiovascular: Cardiovascular: Denies chest pain, Denies leg edema, Denies palpitations and Denies dyspnea Respiratory: Respiratory: Denies cough and Denies dyspnea Gastrointestinal: Gastrointestinal: Denies dysphagia, Denies diarrhea, Denies nausea, Denies odynophagia and Denies vomiting Ge
[2023-12-15 14:00] VITALS: BP 152/70; PULSE 71; RESP 18; TEMP 36.4; O2SAT 99
[2023-12-15] MEDS: WARFARIN (*PBKC) 5 MG TABLET PO (17:37)
[2023-12-15 19:50] VITALS: BP 173/79; PULSE 75; RESP 16; TEMP 36.8; O2SAT 98
[2023-12-15 20:30] VITALS: PULSE 71; RESP 18; O2SAT 99
[2023-12-15] MEDS: POTASSIUM CHLORIDE 10 MEQ ER TABLET PO (20:33)
[2023-12-15] MEDS: PANTOPRAZOLE 40 MG TABLET PO (20:33)
[2023-12-16] VITALS: BP 154/65
[2023-12-16 06:00] VITALS: BP 158/67; PULSE 62; RESP 16; TEMP 36.2; O2SAT 97
[2023-12-16 06:33] LABS: Anion Gap 2 mmol/L (4-12); Blood Urea Nitrogen 24 mg/dL (7-17); Calcium 10.6 mg/dL (8.4-10.2); Carbon Dioxide 29 mmol/L (22-30); Chloride 106 mmol/L (98-107); Estimated CRCL calculation 45 ml/min; Estimated Glomerular Filt Rate 60; Glucose 119 mg/dL (65-110); Potassium 4.6 mmol/L (3.4-5.0); Sodium 137 mmol/L (137-145)
[2023-12-16 06:35] LABS: INR 1.8; Prothrombin Time 21.4 Seconds (11.1-14.7)
[2023-12-16 08:36] VITALS: PULSE 82
[2023-12-16] MEDS: predniSONE 20 MG TABLET 40 MG PO (08:36)
[2023-12-16] MEDS: GABAPENTIN 300 MG CAPSULE PO (08:36)
[2023-12-16] MEDS: PANTOPRAZOLE 40 MG TABLET PO (08:36)
[2023-12-16] MEDS: FUROSEMIDE 20 MG TABLET PO (08:36)
[2023-12-16] MEDS: METOPROLOL SUCCINATE EXT REL 12.5 MG TABCR PO (08:36)
[2023-12-16] MEDS: HYDROcodone/acetaminophen (*CRX) 5-325 MG TABLET 1 TAB PO (08:36)
[2023-12-16] MEDS: methiMAzole 5 MG TAB PO (08:36)
[2023-12-16] MEDS: VENLAFAXINE HCL XR 75 MG CAP.ER.24H 150 MG PO (08:36)
--- NOTE | 2023-12-16 10:16 | PM.IMPN ---
Progress Note: A&P Assessment and Plan (1) Foot pain, right: Code(s): M79.671 - Pain in right foot Status: Acute Assessment and Plan: Symptoms more so extending to the ankle today on examination, not weightbearing at this time on my exam. - Supportive care, prn analgesics. No acute fracture on x ray Right foot x-ray pending (2) Inability to walk: Code(s): R26.2 - Difficulty in walking, not elsewhere classified Status: Acute Assessment and Plan: Significantly limited d/t pain on my examination. - Plan for pt/ot eval. May require short term placement. (3) Gout attack: Code(s): M10.9 - Gout, unspecified Status: Acute Assessment and Plan: 40mg daily of prednisone Glucose stable on labs this am. (4) Anticoagulation excessive: Status: Acute Assessment and Plan: Hx aortic valve replacement, mechanical. Atrial fibrillation. Plan to hold today's warfarin and consider dose reduction to 4-5mg daily pending INR in the am. 108 INR 2.1, restart warfarin at 5 mg today, patient came in on 6 mg and was supratherapeutic 12/15 INR 1.8 INR goal 2.5-3.5 Patient will need to follow up in her anticoagulation clinic for management and repeat labs (5) Paroxysmal atrial fibrillation: Code(s): I48.0 - Paroxysmal atrial fibrillation Status: Acute Assessment and Plan: Stable rate. - Anticoagulated on warfarin, See above (6) HTN (hypertension): Code(s): I10 - Essential (primary) hypertension Status: Acute Assessment and Plan: Patient hypertensive this morning Restart Lasix, will hold off on other hypertensive meds for now and re-evaluate in the morning (7) COPD with emphysema: Code(s): J43.9 - Emphysema, unspecified Status: Acute Assessment and Plan: - Stable on exam. (8) Obstructive sleep apnea on CPAP: Code(s): G47.33 - Obstructive sleep apnea (adult) (pediatric); Z99.89 - Dependence on other enabling machines and devices Status: Acute Assessment and Plan: CPAP at night (9) Osteoporosis: Code(s): M81.0 - Age-related osteoporosis without current pathological fracture Status: Acute Assessment and Plan: - Follow-up in outpatient setting (10) Chronic kidney disease, stage 3b: Code(s): N18.32 - Chronic kidney disease, stage 3b Status: Acute Assessment and Plan: - Stable lab values. (11) Type 2 diabetes mellitus: Code(s): E11.9 - Type 2 diabetes mellitus without complications Status: Acute Assessment and Plan: Stable fbg this am. Kasi Garcia continues to have significant pain this am and is not currently able to bear weight (or act against resistance on physical examination). Will have pt/ot evaluation today. Uptitrate steroids to help resolve the gout flare. Warfarin restarted will need to monitor daily INR levels and patient will need to follow-up outpatient Subjective Date/time seen: 12/16/23 10:16 Interval history: No acute events overnight, patient complains of arch and ankle pain. Denies other concerns this am. Right ankle and foot x ray negative for acute fracture. Review of Systems Review of Systems: right foot pain unable to bear weight on it All systems reviewed & are unremarkable except as noted in HPI and below Constitutional: Constitutional: Denies chills, Denies fever(s) and Denies night sweats Eyes: Eyes: Denies change in vision ENT: Denies dysphagia and Denies odynophagia Cardiovascular: Cardiovascular: Denies chest pain, Denies leg edema, Denies palpitations and Denies dyspnea Respiratory: Respiratory: Denies cough and Denies dyspnea Gastrointestinal: Gastrointestinal: Denies dysphagia, Denies diarrhea, Denies nausea, Denies odynophagia and Denies vomiting Genito
--- NOTE | 2023-12-16 13:14 | PM.DS ---
DS: Admitting Diagnosis Discharge Date 12/16/2023 Admitting Diagnosis Acute gout attack DS: Discharge Diagnosis Discharge Diagnosis (1) Foot pain, right: Code(s): M79.671 - Pain in right foot Status: Acute Assessment and Plan: Symptoms more so extending to the ankle today on examination, not weightbearing at this time on my exam. - Supportive care, prn analgesics. No acute fracture on x ray Right foot x-ray pending (2) Inability to walk: Code(s): R26.2 - Difficulty in walking, not elsewhere classified Status: Acute Assessment and Plan: improving with pain control and therapy (3) Gout attack: Qualifiers: Gout site: ankle Encounter type: initial encounter Laterality: right Code(s): M10.9 - Gout, unspecified Status: Acute Assessment and Plan: patient will be discharged on prednisone taper, Tylenol as needed, and meloxicam for 2 weeks (4) Anticoagulation excessive: Status: Acute Assessment and Plan: resolved Hx aortic valve replacement, mechanical. Atrial fibrillation. Plan to hold today's warfarin and consider dose reduction to 4-5mg daily pending INR in the am. 12/14 INR 2.1, restart warfarin at 5 mg today, patient came in on 6 mg and was supratherapeutic INR goal 2.5-3.5 Patient will need to follow up in her anticoagulation clinic for management (5) Paroxysmal atrial fibrillation: Code(s): I48.0 - Paroxysmal atrial fibrillation Status: Acute Assessment and Plan: see above (6) HTN (hypertension): Code(s): I10 - Essential (primary) hypertension Status: Acute Assessment and Plan: okay to restart home meds (7) COPD with emphysema: Code(s): J43.9 - Emphysema, unspecified Status: Acute Assessment and Plan: no acute issues (8) Obstructive sleep apnea on CPAP: Code(s): G47.33 - Obstructive sleep apnea (adult) (pediatric); Z99.89 - Dependence on other enabling machines and devices Status: Acute Assessment and Plan: CPAP at night (9) Osteoporosis: Code(s): M81.0 - Age-related osteoporosis without current pathological fracture Status: Acute Assessment and Plan: - Follow-up in outpatient setting (10) Chronic kidney disease, stage 3b: Code(s): N18.32 - Chronic kidney disease, stage 3b Status: Acute Assessment and Plan: Stable lab values. (11) Type 2 diabetes mellitus: Code(s): E11.9 - Type 2 diabetes mellitus without complications Status: Acute Assessment and Plan: stable blood sugars while in hospital DS: Summary Hospital Course Reason for hospitalization: acute gout attack in the right foot and ankle Hospital Course: 78-year-old female with past medical history significant for atrial fibrillation, anticoagulated, rate controlled, chronic kidney disease, hypertension, COPD/asthma, depression with anxiety, obstructive sleep apnea on CPAP at nighttime, type diabetes mellitus. Patient presents to the emergency room due to 3-4 days of right foot pain which is localized to the medial aspect of the ankle unable to bear weight on it extremely painful to touch patient has had ankle-brachial Dopplers as well as CT angiogram which do not show occlusion. Patient denies any fevers, rigors, chills, nausea, vomiting, diarrhea however has been unable to ambulate due to pain. Patient has been placed in observation for further evaluation management and treatment. While in the hospital the patient also had x-rays of her right ankle and foot no acute fractures identified. Patient was started on prednisone for new diagnosis of gout, with improvement in pain symptoms. She was also found to be Super therapeutic on her warfarin dose with her INR being 3.7 on admission with her goal being 2.5-3.5. On 12/15/2023 patient was restarted on 5 mg of warfarin with
[2023-12-16 14:00] VITALS: BP 141/69; PULSE 73; RESP 18; TEMP 36.8; O2SAT 98
[2023-12-16] MEDS: WARFARIN (*PBKC) 5 MG TABLET PO (16:57)
== END 2023-12-16 17:00 | disposition home or self-care (01) ==
LOC: ANHED 22:09 → ANH2MED 12-13 00:32
PROVIDERS: Nurse Practitioner; Nurse Practitioner Family; Nurse Practitioner Gerontology; Admitting Provider Internal Medicine; Emergency Provider Emergency Medicine; PCP Student in an Organized Health Care Education/Training Program; Visit Provider General Practice
DX: M10.9 Gout, unspecified (principal); M79.671 Pain in right foot; R26.2 Difficulty in walking, not elsewhere classified; Z79.01 Long term (current) use of anticoagulants; I48.0 Paroxysmal atrial fibrillation; J43.9 Emphysema, unspecified; G47.33 Obstructive sleep apnea (adult) (pediatric); M81.0 Age-related osteoporosis without current pathological fracture; E11.22 Type 2 diabetes mellitus with diabetic chronic kidney disease; I13.0 Hypertensive heart and chronic kidney disease with heart failure and stage 1 through stage 4 chronic kidney disease, or unspecified chronic kidney disease; N18.32 Chronic kidney disease, stage 3b; I50.9 Heart failure, unspecified; F41.8 Other specified anxiety disorders; R79.1 Abnormal coagulation profile; E78.5 Hyperlipidemia, unspecified; G25.81 Restless legs syndrome; Z79.85 Long-term (current) use of injectable non-insulin antidiabetic drugs; Z79.899 Other long term (current) drug therapy; Z87.891 Personal history of nicotine dependence; Z98.42 Cataract extraction status, left eye; Z98.41 Cataract extraction status, right eye; Z95.2 Presence of prosthetic heart valve; Z99.89 Dependence on other enabling machines and devices; Z79.51 Long term (current) use of inhaled steroids; Z79.891 Long term (current) use of opiate analgesic
CPT/HCPCS: 36415; 71045; 73610; 73620; 73630; 75635; 80048; 80053; 82948; 83605; 83735; 84484; 85025; 85610; 85730; 93005; 96365; 96366; 96375; 96376; 97110; 97161; 97165; 97530; 97535; 99285; A9270; G0378; J2270; J2405; J2470; J2919; J3475; J7512; Q9967

== ENCOUNTER 2024-03-07 15:29 | Inpatient (IN) | payer OTHER, SELFPAY ==
--- NOTE | ~2024-03-07 | XR_ITS ---
EXAMINATION: XR lumbar spine 2-3V DATE: 03/23/2024 13:29 INDICATION: Low back pain. TECHNIQUE: 3 views of lumbar spine were obtained. COMPARISON: Lumbar spine radiographs 02/27/2020 FINDINGS: There is 13 degrees dextroscoliosis of lumbar spine. Vertebral body heights are normal. The re is mildly decreased disc height at L2-L3 and L3-L4. There are endplate osteophytes at all levels. There is multilevel facet joint osteoarthritis, severe in lower lumbar spine. IMPRESSION: 1. Mild lumbar spondylosis. 2. Lumbar dextroscoliosis. Reviewed, dictated and finalized at location A. CTOR INVESTOR RELATIONS
--- NOTE | ~2024-03-07 | CT_ITS ---
CT chest abdomen pelvis wo con Ordering provider: Raz Tuttle MD History: . left side hematoma . Comparison: None. Technique: CT chest without IV contrast. CT abdomen and pelvis without oral and IV contrast. The dose-length product was 1284.92 mGy-cm. FINDINGS: The study is limited due to lack of IV contrast. CHEST: --VISUALIZED THORACIC INLET: Normal as visualized. --MEDIASTINUM: Aorta/coronary arteries: Mild atheromatous disease. Heart/other: The heart is slightly enlarged. Lymph nodes: No mediastinal or hilar adenopathy. Postoperative changes in the mediastinum. --LUNGS: No pulmonary nodules or masses. No infiltrates or effusions. No pneumothorax. Dependent atel ectatic changes. --MUSCULOSKELETAL: Soft tissues: The superficial soft tissues are normal. Bones: Compression fracture of T6. This is most likely chronic. MRI evaluation advised. Hemangioma is seen in T9. Age appropriate degenerative changes of the spine. Post sternotomy changes. ABDOMEN/PELVIS: --MUSCULOSKELETAL: Bones: Age appropriate degenerative changes of the spine. Bilateral sacroiliacs. Pubic symphysitis. Superficial soft tissues: Soft tissue density in the left anterior abdominal wall suggestive of a hem atoma. which measures 3 x 2.5 cm. Fat stranding in the right lateral abdominal wall. Otherwise, The s uperficial soft tissues are normal. --UPPER ABDOMINAL ORGANS: Liver: Normal. Focus of calcification is seen in the surface of the liver. Gallbladder: Normal. Spleen: Normal. Stomach/duodenum: Normal. Pancreas: Normal. Adrenals: Normal. Kidneys: 1 cm Tiny cyst in the right kidney upper pole. --PELVIC ORGANS: The bladder is normal. No bladder stones. --BOWEL AND MESENTERY: Colon: No evidence of diverticulitis. Fecal material is seen in the colon suggestive of constipation. Normal appendix. Small Bowel: Normal. No obstruction. Peritoneum/mesentery: No free air or free fluid. No mesenteric lymphadenopathy. --RETROPERITONEUM: Mild atheromatous disease of the abdominal aorta. No retroperitoneal lymphadenop athy. IMPRESSION: CHEST: 1. No acute cardiopulmonary pathology. 2. Compression fracture of T6. MRI evaluation advised. ABDOMEN/PELVIS: 1. Hematoma in the left anterior abdominal wall. 2. Constipation. Reviewed, dictated and finalized at location A. ER SALVAGER
--- NOTE | ~2024-03-07 | XR_ITS ---
CHEST RADIOGRAPH CLINICAL HISTORY: fever . COMPARISON: 03/08/2024 TECHNIQUE: Single portable view of the chest. FINDINGS The cardiomediastinal silhouette is enlarged, unchanged. Sternal wires and mediastinal clips are identified, the wires are midline and unchanged in configurat ion from prior. The remainder of the cardiomediastinal silhouette is otherwise unremarkable. Redemonstration of increased density along the left hemidiaphragm, findings suggesting possible left lower lobe infiltrate. IMPRESSION: Persisting cardiomegaly with possible left lower lobe infiltrate, as detailed above. Reviewed, dictated and finalized at location A. L EDITOR IMPRESSION: Persisting cardiomegaly with possible left lower lobe infiltrate, as detailed a erlin.
--- NOTE | ~2024-03-07 | XR_ITS ---
EXAMINATION: XR chest 1V portable Exam Date/Time: 03/08/2024 19:03 WRAPPING CLERK HISTORY: shortness of breath Comparison: 03/07/2024. RESULT: Lines, tubes, and devices: Multiple fractured sternotomy wires, in stable position. Cardiac valve re placement. Lungs and pleura: Increasing streaky left basilar opacities. Mild left and minimal right costophreni c angle blunting. Cardiomediastinal silhouette: Stable. Other: No acute osseous or upper abdominal finding. IMPRESSION: New subsegmental left basilar opacities likely represent atelectasis. Infection not excluded. Small l eft and trace right pleural effusions. Reviewed, dictated and finalized at location K. PING CLERK IMPRESSION: New subsegmental left basilar opacities likely represent atelectasis. Infection not excluded. Small left and trace right pleural effusions.
--- NOTE | ~2024-03-07 | XR_ITS ---
XR chest 1V portable DATE: 03/20/2024 04:27 INDICATION: New crackles TECHNIQUE: Portable upright AP chest on 03/20/2024 at 0412 hours COMPARISON: 03/18/2024 portable AP chest at 1641 hours FINDINGS: Status post sternotomy and aortic valve replacement. Cardiomegaly. Aortic arch calcificatio n, mild aortic unfolding. No hilar or mediastinal enlargement. No pulmonary infiltrate or consolidation, pleural effusion or pulmonary vascular congestion or pneumo thorax is detected. Osteopenia. IMPRESSION: No acute cardiopulmonary process or significant change since 03/18/2024 Reviewed, dictated and finalized at location A. ET BINDER IMPRESSION: No acute cardiopulmonary process or significant change since 025
--- NOTE | ~2024-03-07 | XR_ITS ---
EXAMINATION: XR chest 1V portable Exam Date/Time: 03/18/2024 16:30 PARADI TENDER HISTORY: SOB Comparison: 03/10/2024. RESULT: Lines, tubes, and devices: Multiple fractured sternotomy wires remain in stable position. Cardiac va lve replacement. Lungs and pleura: Senescent change, otherwise clear. Cardiomediastinal silhouette: Stable. Other: No acute osseous or upper abdominal finding. IMPRESSION: No acute cardiopulmonary process. Reviewed, dictated and finalized at location K. DI TENDER
--- NOTE | ~2024-03-07 | XR_ITS ---
EXAMINATION: XR chest 2V DATE: 03/29/2024 09:21 INDICATION: Shortness of breath and cough. TECHNIQUE: Frontal and lateral views of the chest were obtained. COMPARISON: Chest single view 03/26/2024, chest CT 03/21/2024 FINDINGS: There is mild atelectasis at left lung base. No pleural effusion or pneumothorax. Cardiomeg madhuri is noted. There are changes of aortic valve replacement. There is a prominent left pericardial fa t pad. IMPRESSION: 1. Mild atelectasis at left lung base. 2. Cardiomegaly. Reviewed, dictated and finalized at location B. GER MARKETING
--- NOTE | ~2024-03-07 | XR_ITS ---
EXAMINATION: XR chest 1V portable DATE: 03/26/2024 05:52 INDICATION: Congestion. TECHNIQUE: A single frontal view of the chest was obtained. COMPARISON: Chest single view 03/20/2024, chest CT 03/21/2024 FINDINGS: There is no pneumonia, pleural effusion, or pneumothorax. Cardiomegaly is noted. There are changes of aortic valve replacement. IMPRESSION: 1. Cardiomegaly. Reviewed, dictated and finalized at location A. OR NUCLEAR MEDICINE TECHNOLOGIST IMPRESSION: 1. Cardiomegaly.
--- NOTE | ~2024-03-07 | CT_ITS ---
EXAMINATION: CTA chest PE protocol DATE: 03/29/2024 12:54 INDICATION: Respiratory failure. TECHNIQUE: Computed tomography angiography (CTA) of the chest was performed with 100 mL Omnipaque-350 intravenous contrast timed to evaluate the pulmonary arteries. Coronal maximum intensity projection 3D-reconstructions were created by the technologist. Automated exposure control and iterative reconst ruction technique were employed. The dose-length product was 529.84 mGy-cm. COMPARISON: Chest CT 03/21/2024 FINDINGS: There are scattered nodules and airspace opacities involving the upper lobes and lower lobe s, consistent with pneumonia. There is mucous plugging in the lower lobes. No pleural effusion. Cardi omegaly is noted. There are changes of aortic valve replacement. There are coronary artery calcificat ions. No pericardial effusion. The liver demonstrates surface nodularity. There is cortical thinning of the kidneys. There is mild thoracic spondylosis. There is a chronic burst fracture of T6. There is a benign bone island in T5 vertebral body. IMPRESSION: 1. Bilateral pneumonia in the upper lobes and lower lobes. 2. No pulmonary embolus. 3. Liver surface nodularity suspicious for cirrhosis. Reviewed, dictated and finalized at location B. EL HAND
--- NOTE | ~2024-03-07 | CT_ITS ---
EXAMINATION: CT cervical spine wo con DATE: 03/24/2024 14:38 INDICATION: Neck pain. TECHNIQUE: Computed tomography (CT) of the cervical spine was performed without intravenous contrast. Automated exposure control and iterative reconstruction technique were employed. The dose-length pro duct was 286.46 mGy-cm. COMPARISON: CT cervical spine 11/13/20 FINDINGS: There is 2 mm anterolisthesis of C3 on C4. There is 10 degrees levoscoliosis of cervical sp ine. Vertebral body heights are normal. There is mildly decreased disc height at C3-C4, C4-C5, C5-C6 and moderately decreased disc height at C6-C7. The following disc levels are specifically discussed: C2-C3: There is no uncovertebral joint osteoarthritis. There is ankylosis of the facet joints with mi ld hypertrophy. There is no neural foraminal stenosis. There is no central canal stenosis. C3-C4: There is mild bilateral uncovertebral joint osteoarthritis. There is moderate left facet joint osteoarthritis. There is ankylosis of right facet joint with moderate hypertrophy. There is mild rig ht neural foraminal stenosis. There is no central canal stenosis. C4-C5: There is mild bilateral uncovertebral joint osteoarthritis. There is moderate bilateral facet joint osteoarthritis. There is no neural foraminal stenosis. There is no central canal stenosis. C5-C6: There is moderate bilateral uncovertebral joint osteoarthritis. There is mild left facet joint osteoarthritis. There is mild bilateral neural foraminal stenosis. There is mild central canal steno sis. C6-C7: There is severe bilateral uncovertebral joint osteoarthritis. There is mild bilateral facet christa int osteoarthritis. There is mild bilateral neural foraminal stenosis. There is mild central canal st enosis. C7-T1: There is no uncovertebral joint osteoarthritis. There is mild bilateral facet joint osteoarthr itis. There is no neural foraminal stenosis. There is no central canal stenosis. IMPRESSION: 1. Moderate cervical spondylosis, stable from 11/13/2020. 2. Cervicothoracic levoscoliosis. Reviewed, dictated and finalized at location A. SE COLLECTOR
--- NOTE | ~2024-03-07 | XR_ITS ---
EXAMINATION: XR chest 2V DATE: 03/07/2024 16:30 INDICATION: Shortness of breath. Palpitations. TECHNIQUE: PA and lateral views of the chest were obtained. COMPARISON: Chest radiograph dated 12/12/2023 FINDINGS: The lungs are clear with no focal airspace opacities, pulmonary edema, pleural effusion or pneumothor ax. Mild cardiomegaly. Median sternotomy wires and changes of prior aortic valve repair. Atherosclero tic aorta. IMPRESSION: 1. No acute cardiopulmonary disease. Reviewed, dictated and finalized at location B. MUNITION STORAGE SUPERINTENDENT
--- NOTE | ~2024-03-07 | XR_ITS ---
MODIFIED ESOPHAGRAM HISTORY: Dysphagia. TECHNIQUE: Modified barium esophagram was performed on 03/31/2024. I administered fluoroscopy and perf ormed the exam with speech pathologist. Patient was seated for lateral fluoroscopic imaging for beti stion of thin liquids, pudding, solids and quantified amounts, followed by thin liquids in uncontroll ed amounts. This was recorded on tape. A single fluoroscopic spot image was also recorded. The DAP fo r this procedure was 1.085 Gycm2. The amount of fluoroscopy time used during this procedure was 1.8 m inutes. FINDINGS: Oral stage: Adequate function. Pharyngeal stage: There is flash laryngeal penetration which cleared without aspiration which occurre d only with swallows with large amounts of thin liquids. Cervical/esophageal stage: Adequate function. IMPRESSION: Transient laryngeal penetration without aspiration with swallows of large amounts of thin liquids. Please correlate with speech pathologist findings and specific feeding recommendations. Reviewed, dictated and finalized at location A. WARE INSTALLER IMPRESSION: Transient laryngeal penetration without aspiration with swallows of large amounts of thin liquids. Please correlate with speech pathologist findi ngs and specific feeding recommendations.
--- NOTE | ~2024-03-07 | XR_ITS ---
CHEST RADIOGRAPH CLINICAL HISTORY: a fib rvr, worsening sob . COMPARISON: 03/29/2024 TECHNIQUE: Single portable view of the chest. FINDINGS Sternal wires and mediastinal clips are identified, the wires are midline and intact. Prosthetic ring projecting over the mitral position The remainder of the cardiomediastinal silhouette is enlarged, but otherwise unremarkable. Increased interstitial markings are identified bilaterally, findings suggesting moderate pulmonary va scular congestion. Large left-sided pleural effusion. The remainder of the lungs are clear. IMPRESSION: Moderate pulmonary vascular congestion with a large left-sided pleural effusion Reviewed, dictated and finalized at location A. NESS COORDINATOR
--- NOTE | ~2024-03-07 | NM_ITS ---
EXAMINATION: NM gricelda stress w perfusion DATE: 03/22/2024 12:25 INDICATION: Dyspnea on exertion. TECHNIQUE: Rest images were obtained following intravenous administration of 9.2 mCi Tc99m tetrofosmi n (Myoview). The patient was infused intravenously with Lexiscan (regadenoson). Then, 30.0 mCi Tc99m tetrofosmin (Myoview) was administered intravenously, and stress images were obtained. Data was recon structed into short axis and horizontal and vertical long axis SPECT images. Gated SPECT images were also obtained. COMPARISON: None. FINDINGS: There is no definite reversible or fixed perfusion abnormality to suggest ischemia or infar ction. There is no segmental wall motion abnormality. Left ventricular ejection fraction measures 5 6%. IMPRESSION: 1. No definite ischemia or infarct. 2. Normal left ventricular ejection fraction measuring 56%. Reviewed, dictated and finalized at location A. URY OPERATOR
[2024-03-07 15:38] VITALS: BP 104/74; PULSE 104; RESP 22; TEMP 36.4; O2SAT 97
--- NOTE | 2024-03-07 15:44 | ECG_ITS ---
Test Date: 2024-03-07 15:48:51 Measurements Intervals Simpson Rate: 104 P: 0 OH: 0 QRS: -52 QRSD: 145 T: 120 QT: 368 QTc: 484 Interpretive Statements Junctional rhythm MARKED LEFT AXIS DEVIATION [QRS AXIS < -30] LEFT BUNDLE BRANCH BLOCK [120+ ms QRS DURATION, 80+ ms Q/S IN V1/V2, 85+ ms R IN I/aVL/V5/V6] Compared to ECG 12/12/2023 21:13:10 Sinus rhythm no longer present Electronically Signed On 03-07-2024 17:57:41 [employer] [employer] by Paxton Villela M.D.
--- NOTE | 2024-03-07 15:44 | ED_ITS ---
HPI - Arrhythmia/Palpitations General Chief Complaint: Arrhythmia/Palpitations <JOSI Norwood Last Filed: 03/07/24 15:52> Stated Complaint: irregular heart beat <JOSI Norwood Last Filed: 03/07/24 15:52> Time Seen by Provider: 03/07/24 15:44 <JOSI Norwood Last Filed: 03/07/24 15:52> Focused HPI: Patient is a 78 y/o female who presents to the ED with c/o heart palpitations. Patient reports having intermittent heart palpitations over the last 2 days. Described as though her heart is racing. She has been feeling short of breath. She has had intermittent left-sided chest pain, denies pain currently. Feeling weak and slightly dizzy. Does have history of left bundle- branch block, AFib, mechanical valve. On warfarin. Denies fevers, cough, cold sx's. GENERAL: Mildly ill-appearing, well-nourished, and in no acute distress. HEAD: Normocephalic, atraumatic. CHEST: Clear to auscultation. ?No respiratory distress. HEART: Tachycardic with regular rhythm.?Peripheral pulses intact. NEURO: ?Alert and oriented x3. Patient screened in triage and initial orders placed.? ?Additional care and disposition to be based upon?diagnostic testing and treatment. <JOSI Norwood Last Filed: 03/07/24 15:52> Focused HPI: Patient is a 78 y/o female who presents to the ED with c/o heart palpitations. Patient reports having intermittent heart palpitations over the last 2 days. Patient says palpitations are worse when she goes from sitting to standing. She has had intermittent left-sided chest pain, denies pain currently. Feeling weak and slightly dizzy. She denies any nausea vomiting diarrhea or any reason to be dehydrated. Does have history of left bundle- branch block, AFib, mechanical valve. On warfarin. Denies fevers, cough, cold sx's. GENERAL: Mildly ill-appearing, well-nourished, and in no acute distress. HEAD: Normocephalic, atraumatic. CHEST: Clear to auscultation. ?No respiratory distress. HEART: Tachycardic with regular rhythm.?Peripheral pulses intact. NEURO: ?Alert and oriented x3. Patient screened in triage and initial orders placed.? ?Additional care and disposition to be based upon?diagnostic testing and treatment. <Ever Mckinney MD - Last Filed: 03/07/24 23:32> Source: patient <Neema Parker PA-C - Last Filed: 03/07/24 15:52> Mode of arrival: ambulatory <Neema Parker PA-C - Last Filed: 03/07/24 15:52> Limitations: no limitations <Neema Parker PA-C - Last Filed: 03/07/24 15:52> Related Data Home Medications: Home Medications ?Medication ?Instructions ?Recorded ?Confirmed ?Last Taken ?Type albuterol sulfate 90 mcg/actuation 2 puff inhalation QID PRN 01/09/19 03/03/24 Unknown History aerosol inhaler Shortness Of Breath gabapentin 300 mg capsule 300 mg PO Q12H 01/09/19 03/03/24 12/12/23 History venlafaxine 150 mg 150 mg PO DAILY 01/09/19 03/03/24 12/12/23 History capsule,extended release 24 hr furosemide 20 mg tablet 20 mg PO DAILY 03/18/22 03/03/24 12/12/23 History potassium chloride 10 mEq 10 meq PO HS 03/18/22 03/03/24 12/11/23 History tablet,extended release cholecalciferol (vitamin D3) 1,000 units PO DAILY 08/23/23 03/03/24 12/12/23 History simvastatin 10 mg PO HS 08/23/23 03/03/24 12/11/23 History alprazolam 0.5 mg tablet 0.25 mg PO HS PRN Anxiety 11/01/23 03/03/24 Unknown History hydrocodone 5 mg-acetaminophen 325 1 - 2 tablet PO Q6H PRN Pain 11/01/23 03/03/24 Unknown History mg tablet omeprazole 40 mg capsule,delayed 40 mg PO DAILY 11/01/23 03/03/24 12/12/23 History release semaglutide 0.25 mg or 0.5 mg (2 0.5 mg subcut WEEKLY 11/12/23 03/03/24 Unknown History mg/3 mL) subcutaneous pen injector (Ozempic) cinacalcet 30 mg tablet 15 mg PO DAILY 12/13/23 03/03/24 12/12/23 History methimazole 5 mg tablet 5 mg PO DAILY 12/13/23 03/03/24 12/12/23 History <JOSI Norwood Last Filed: 03/07/24 15:52> Allergies/Adverse Reactions: Allergies Allergy/AdvReac Type Severity Reaction Status Date / Time adhesive tape Allergy Intermediate Blister Verified 03/07/24 15:30 cortisone Allergy Intermediate Rash Verified 03/07/24 15:30 bacitracin Allergy Mild Rash Verified 03/07/24 15:30 neomycin Allergy Mild Rash Verified 03/07/24 15:30 polymyxin B Allergy Mild Rash Verified 03/07/24 15:30 <JOSI Norwood Last Filed: 03/07/24 15:52> [facility] Past Medical History Medical History: Medical History Irritable bowel syndrome Gallbladder disorder Arthritis Vitamin B12 deficiency Atrial fibrillation with slow ventricular response Chronic kidney disease, stage 3b Chronic kidney disease Baseline creatinine is around 1.50. Restless leg syndrome Congestive heart failure Echocardiogram in March 2021 showed normal FVC size, moderate LVH, borderline LV systolic function with an EF of 50 to 55%, and grade 1 diastolic dysfunction. Depression with anxiety Degenerative joint disease Burst fracture of thoracic vertebra Kidney stone Obstructive sleep apnea on CPAP Diverticulitis Hypertension Type 2 diabetes mellitus Chronic obstructive pulmonary disease Patient had a pulmonary function test on 02/24/2020 which was suggestive of COPD. Chronic anticoagulation Paroxysmal atrial fibrillation On amiodarone therapy Depression Hyperlipidemia Herniated disc <JOSI Norwood Last Filed: 03/07/24 15:52> Surgical History Surgical History: Surgical History History of right knee surgery Ligamentous repair. History of bilateral cataract extraction History of mechanical aortic valve replacement (2003) [facility] valve. History of ankle surgery ORIF left ankle fracture. History of hysterectomy <JOSI Norwood Last Filed: 03/07/24 15:52> Family History Family History: Family History Mother Family history of cardiovascular disease Family history of arthritis CHF (congestive heart failure) Depression Family history of coronary artery disease Father Family history of cardiovascular disease Diabetes mellitus Family history of arthritis Acute myocardial infarction Family history of diabetes mellitus in first degree relative Sibling , cancer Family history of arthritis Malignant neoplasm of prostate Sibling Family history of arthritis Malignant neoplasm of prostate <Neema Parker PA-C - Last Filed: 03/07/24 15:52> Social History Social History: Social History Social History: The patient is and lives in her own home with her small dog. 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 No alcohol or illicit drug use. Surrogate decision maker: Shannon Vigil, sister. Code status: Full code. 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 EYES: EOMI, NOSE: Atraumatic NECK: Trachea midline RESPIRATORY: No increased rate of breathing, clear to auscultation CARDIOVASCULAR: Mild tachycardia, no peripheral edema ABDOMINAL: Non-distended soft nontender MUSCULOSKELETAl: No obvious deformities NEURO: Alert. Moving 4/4 extremities SKIN:: Warm, dry. Normal color PSYCHIATRIC: Normal affect <Ever Mckinney MD - Last Filed: 03/07/24 23:32> Course Vital Signs Vital signs: Vital Signs Temperature 97.6 F 03/07/24 15:38 Pulse Rate 104 H 03/07/24 15:38 Respiratory Rate 22 H 03/07/24 15:38 Blood Pressure 104/74 03/07/24 15:38 Pulse Oximetry 97 03/07/24 15:38 Oxygen Delivery Room Air 03/07/24 15:38 Temperature 97.6 F 03/07/24 15:38 Pulse Rate 104 H 03/07/24 15:38 Respiratory Rate 22 H 03/07/24 15:38 Blood Pressure 104/74 03/07/24 15:38 Pulse Oximetry 99 03/07/24 19:22 Oxygen Delivery Room Air 03/07/24 19:22 <Neema Parker PA-C - Last Filed: 03/07/24 15:52> Vital Signs Temperature 97.6 F 03/07/24 15:38 Pulse Rate 104 H 03/07/24 15:38 Respiratory Rate 22 H 03/07/24 15:38 Blood Pressure 104/74 03/07/24 15:38 Pulse Oximetry 97 03/07/24 15:38 Oxygen Delivery Room Air 03/07/24 15:38 Temperature 97.6 F 03/07/24 15:38 Pulse Rate 104 H 03/07/24 15:38 Respiratory Rate 22 H 03/07/24 15:38 Blood Pressure 104/74 03/07/24 15:38 Pulse Oximetry 99 03/07/24 19:22 Oxygen Delivery Room Air 03/07/24 19:22 <Ever Mckinney MD - Last Filed: 03/07/24 23:32> MDM - Arrhythmia/Palpitations MDM Narrative Medical decision making narrative: MSE by GERRY in triage. <Neema Parker PA-C - Last Filed: 03/07/24 15:52> MSE by GERRY in triage. -Course: 78-year-old female palpitations and dizziness. Lightheadedness is triggered by going from sitting to standing. Patient given a 1 L of fluid for dehydration. patient has acute kidney injury with creatinine 1.7 from a baseline 0.9. Mild elevations in troponin that are flat or mildly down trending. Patient did report some chest pain yesterday although she has been pain-free in our emergency. BNP elevated at 9000 although clinically the patient is not fluid overloaded, no LE edema, no edema on chest x-ray and no respiratory complaints. Symptoms seem most consistent with dehydration/orthostatics although cardiac dysrhythmia is a possibility. Patient will be admitted to the hospital and placed on telemetry. -DDX includes but is not limited to: Dehydration, orthostatic hypotension cardiac dysrhythmia -Co-morbidities complicating care: History of atrial fibrillation on Coumadin, anxiety COPD -Social determinants of health: Patient lives alone, denies drugs alcohol -Independent interpretation of studies: Labs imaging reviewed Independent EKG interpretation: Rhythm Junctional, Rate [98], [place] -[normal], [place] -[normal], QRS [narrow], QTC [normal], T waves -[negative for concerning inversions], ST Segments - [Negative for concerning elevations] Final interpretations: junctional rhythm w/ left bundle branch block. -Discussion of Management/Consultants: Yumiko -Shared decision making / Disposition: discharged <Ever Mckinney MD - Last Filed: 03/07/24 23:32> Lab Data Result diagrams: 03/07/24 18:12 03/07/24 18:12 <Neema Parker PA-C - Last Filed: 03/07/24 15:52> Labs: Lab Results 03/07/24 03/07/24 03/07/24 Range/Units 18:12 19:24 21:47 WBC 6.8 (4.5-10.0) K/mm3 RBC 4.30 (4.2-5.4) M/mm3 Hgb 14.2 (12.0-15.0) g/dL Hct 44.1 (37.0-47.0) % MCV 102.6 H (80-100) fl MCH 33.0 (26-34) pg MCHC 32.2 (32-36) g/dl RDW 13.3 (11.5-14.5) % Plt Count 234 (150-375) k/mm3 MPV 12.6 H (7.4-10.4) fl Immature Gran % (Auto) 0.3 (0-0.5) % Neut % (Auto) 64.2 (45.5-73.1) % Lymph % (Auto) 23.1 (18.3-44.2) % [place] % (Auto) 10.2 H (2.6-8.5) % Eos % (Auto) 0.9 (0-4.4) % Baso % (Auto) 1.3 H (0.2-1.2) % Lymph # (Auto) 1.58 (0.9-3.2) K/mm3 [place] # (Auto) 0.7 H (0.1-0.6) K/mm3 Eos # (Auto) 0.1 (0-0.3) K/mm3 Baso # (Auto) 0.1 (0.0-0.1) K/mm3 Abs Immat Gran (auto) 0.02 (0.00-0.031) K/mm3 Absolute Neuts (auto) 4.4 (1.3-6.7) K/mm3 Absolute Nucleated RBC 0.000 (0.0-0.012) K/mm3 Nucleated RBC % 0.0 (0.0-0.2) % PT 18.3 H (11.1-14.7) Seconds INR 1.5 APTT 36.7 (22.3-36.8) Seconds Sodium 137 (137-145) mmol/L Potassium 4.0 (3.4-5.0) mmol/L Chloride 105 (98-107) mmol/L Carbon Dioxide 31 H (22-30) mmol/L Anion Gap 1 L (4-12) mmol/L BUN 23 H (7-17) mg/dL Creatinine 1.70 H (0.7-1.0) mg/dL Estim Creat Clear Calc Not Reportable Estimated GFR 29 L (59 - ) Glucose 100 (65-110) mg/dL Calcium 11.2 H (8.4-10.2) mg/dL Magnesium 1.7 (1.6-2.3) mg/dL Total Bilirubin 0.8 (0.2-1.3) mg/dL AST 33 (14-36) U/L ALT 16 (6-35) U/L Alkaline Phosphatase 65 (38-126) U/L Troponin I 0.055 H* Cancelled 0.048 H* (0.000-0.034) ng/mL NT-Pro-B Natriuret Pep 9640 H (19.9-100) pg/mL Total Protein 8.0 (6.3-8.2) g/dL Albumin 4.2 (3.5-5.1) g/dL Lipase 197 (23-300) U/L TSH 3.240 (0.465-4.680) uIU/mL <Neema Parker PA-C - Last Filed: 03/07/24 15:52> Lab Results 03/07/24 03/07/24 03/07/24 Range/Units 18:12 19:24 21:47 WBC 6.8 (4.5-10.0) K/mm3 RBC 4.30 (4.2-5.4) M/mm3 Hgb 14.2 (12.0-15.0) g/dL Hct 44.1 (37.0-47.0) % MCV 102.6 H (80-100) fl MCH 33.0 (26-34) pg MCHC 32.2 (32-36) g/dl RDW 13.3 (11.5-14.5) % Plt Count 234 (150-375) k/mm3 MPV 12.6 H (7.4-10.4) fl Immature Gran % (Auto) 0.3 (0-0.5) % Neut % (Auto) 64.2 (45.5-73.1) % Lymph % (Auto) 23.1 (18.3-44.2) % [place] % (Auto) 10.2 H (2.6-8.5) % Eos % (Auto) 0.9 (0-4.4) % Baso % (Auto) 1.3 H (0.2-1.2) % Lymph # (Auto) 1.58 (0.9-3.2) K/mm3 [place] # (Auto) 0.7 H (0.1-0.6) K/mm3 Eos # (Auto) 0.1 (0-0.3) K/mm3 Baso # (Auto) 0.1 (0.0-0.1) K/mm3 Abs Immat Gran (auto) 0.02 (0.00-0.031) K/mm3 Absolute Neuts (auto) 4.4 (1.3-6.7) K/mm3 Absolute Nucleated RBC 0.000 (0.0-0.012) K/mm3 Nucleated RBC % 0.0 (0.0-0.2) % PT 18.3 H (11.1-14.7) Seconds INR 1.5 APTT 36.7 (22.3-36.8) Seconds Sodium 137 (137-145) mmol/L Potassium 4.0 (3.4-5.0) mmol/L Chloride 105 (98-107) mmol/L Carbon Dioxide 31 H (22-30) mmol/L Anion Gap 1 L (4-12) mmol/L BUN 23 H (7-17) mg/dL Creatinine 1.70 H (0.7-1.0) mg/dL Estim Creat Clear Calc Not Reportable Estimated GFR 29 L (59 - ) Glucose 100 (65-110) mg/dL Calcium 11.2 H (8.4-10.2) mg/dL Magnesium 1.7 (1.6-2.3) mg/dL Total Bilirubin 0.8 (0.2-1.3) mg/dL AST 33 (14-36) U/L ALT 16 (6-35) U/L Alkaline Phosphatase 65 (38-126) U/L Troponin I 0.055 H* Cancelled 0.048 H* (0.000-0.034) ng/mL NT-Pro-B Natriuret Pep 9640 H (19.9-100) pg/mL Total Protein 8.0 (6.3-8.2) g/dL Albumin 4.2 (3.5-5.1) g/dL Lipase 197 (23-300) U/L TSH 3.240 (0.465-4.680) uIU/mL <Ever Mckinney MD - Last Filed: 03/07/24 23:32> Discharge Plan Discharge Clinical Impression: Palpitations, Acute kidney injury <Neema Parker PA-C - Last Filed: 03/07/24 15:52> Patient Disposition: Still a Patient <Neema Parker PA-C - Last Filed: 03/07/24 15:52> Condition: Stable <Neema Parker PA-C - Last Filed: 03/07/24 15:52> Patient Language: Macanese <JOSI Norwood Last Filed: 03/07/24 15:52> Prescriptions: No Action Ozempic 0.25 mg or 0.5 mg (2 mg/3 mL) pen injector 0.5 mg subcut WEEKLY simvastatin 10 mg PO HS cholecalciferol (vitamin D3) 1,000 units PO DAILY cyanocobalamin (vitamin B-12) 1,000 mcg capsule 1,000 mcg PO DAILY Qty: 30 0RF metoprolol succinate 25 mg tablet extended release 24 hr 12.5 mg PO DAILY Qty: 30 0RF venlafaxine 150 mg Capsule,Extended Release 24hr 150 mg PO DAILY gabapentin 300 mg Capsule 300 mg PO Q12H albuterol sulfate 90 mcg/actuation Hfa Aerosol Inhaler 2 puff INHALATION QID PRN (Reason: Shortness Of Breath) potassium chloride 10 mEq tablet extended release 10 meq PO HS furosemide 20 mg tablet 20 mg PO DAILY hydrocodone-acetaminophen 5-325 mg tablet 1 - 2 tablet PO Q6H PRN (Reason: Pain) omeprazole 40 mg capsule,delayed release(DR/EC) 40 mg PO DAILY alprazolam 0.5 mg tablet 0.25 mg PO HS PRN (Reason: Anxiety) methimazole 5 mg tablet 5 mg PO DAILY cinacalcet 30 mg tablet 15 mg PO DAILY prednisone 10 mg tablets,dose pack 10 mg PO DAILY Qty: 48 0RF Taper: Prednisone Taper from 50 mg;15 days 40 mg DAILY for 3 Days and 0 Hour 40 mg DAILY for 3 Days and 0 Hour 30 mg DAILY for 3 Days and 0 Hour 20 mg DAILY for 3 Days and 0 Hour 10 mg DAILY for 3 Days and 0 Hour Rx Instructions: 10 mg orally; warfarin 6 mg tablet 5 mg PO DAILY 10 Days Qty: 10 0RF <Neema Parker PA-C - Last Filed: 03/07/24 15:52> Follow-up/Referrals: Darin,DO Sanjeev [Primary Care Provider] - <Neeam Parker PA-C - Last Filed: 03/07/24 15:52>
[2024-03-07 18:22] LABS: Basophils Absolute Auto 0.1 K/mm3 (0.0-0.1); Basophils Percent Auto 1.3 % (0.2-1.2); Eosinophils Absolute Auto 0.1 K/mm3 (0-0.3); Eosinophils Percent Auto 0.9 % (0-4.4); Hematocrit 44.1 % (37.0-47.0); Hemoglobin 14.2 g/dL (12.0-15.0); Immature Granulocyte Absolute 0.02 K/mm3 (0.00-0.031); Immature Granulocyte Percent A 0.3 % (0-0.5); Lymphocytes Absolute Auto 1.58 K/mm3 (0.9-3.2); Lymphocytes Percent Auto 23.1 % (18.3-44.2); Mean Corpuscular HGB Conc 32.2 g/dl (32-36); Mean Corpuscular Volume 102.6 fl (80-100); Mean Platelet Volume 12.6 fl (7.4-10.4); Monocytes Absolute Auto 0.7 K/mm3 (0.1-0.6); Monocytes Percent Auto 10.2 % (2.6-8.5); Neutrophils Absolute Auto 4.4 K/mm3 (1.3-6.7); Neutrophils Percent Auto 64.2 % (45.5-73.1); Platelet Count Result 234 k/mm3 (150-375); Red Cell Distribution Width 13.3 % (11.5-14.5); White Blood Count 6.8 K/mm3 (4.5-10.0)
[2024-03-07 18:32] LABS: Alanine Aminotransferase 16 U/L (6-35); Albumin Level 4.2 g/dL (3.5-5.1); Alkaline Phosphatase 65 U/L (38-126); Anion Gap 1 mmol/L (4-12); Aspartate Amino Transferase 33 U/L (14-36); Bilirubin,Total 0.8 mg/dL (0.2-1.3); Blood Urea Nitrogen 23 mg/dL (7-17); Calcium 11.2 mg/dL (8.4-10.2); Carbon Dioxide 31 mmol/L (22-30); Chloride 105 mmol/L (98-107); Estimated Glomerular Filt Rate 29; Glucose 100 mg/dL (65-110); Lipase 197 U/L (23-300); Magnesium 1.7 mg/dL (1.6-2.3); Sodium 137 mmol/L (137-145)
[2024-03-07 18:39] LABS: INR 1.5; Prothrombin Time 18.3 Seconds (11.1-14.7)
[2024-03-07 18:40] LABS: Partial Thromboplastin Time 36.7 Seconds (22.3-36.8)
[2024-03-07 18:46] LABS: NT Pro B Type Natriuretic Pept 9640 pg/mL (19.9-100); Troponin I 0.055 ng/mL (0.000-0.034)
--- NOTE | 2024-03-07 19:21 | ECG_ITS ---
Test Date: 2024-03-07 22:29:18 Measurements Intervals [place] Rate: 98 P: 253 UT: 142 QRS: -44 QRSD: 144 T: 118 QT: 392 QTc: 501 Interpretive Statements junctional rhythm MARKED LEFT AXIS DEVIATION [QRS AXIS < -30] LEFT BUNDLE BRANCH BLOCK [120+ ms QRS DURATION, 80+ ms Q/S IN V1/V2, 85+ ms R IN I/aVL/V5/V6] Compared to ECG 03/07/2024 15:48:51 PVCs are no longer seen Electronically Signed On 03-08-2024 22:52:41 CAR REPAIRER APPRENTICE by Paxton Villela M.D.
[2024-03-07 19:22] VITALS: O2SAT 99
[2024-03-07] MEDS: SODIUM CHLORIDE 0.9% IV 1,000 ML 999 ML IV CONT (19:23)
--- NOTE | 2024-03-07 21:12 | ECG_ITS ---
Test Date: 2024-03-07 19:21:35 Measurements Intervals [place] Rate: 97 P: -78 [place]: 255 QRS: -45 QRSD: 149 T: 113 QT: 385 QTc: 490 Interpretive Statements ectopic rhythm VENTRICULAR PREMATURE COMPLEXES LEFT AXIS DEVIATION [QRS AXIS < -30] LEFT BUNDLE BRANCH BLOCK [120+ ms QRS DURATION, 80+ ms Q/S IN V1/V2, 85+ ms R IN I/aVL/V5/V6] Compared to ECG 03/07/2024 15:48:51 Ventricular premature complex(es) now present First degree AV block now present Junctional rhythm no longer present Electronically Signed On 03-08-2024 22:54:50 MIXER CRANE OPERATOR by Paxton Villela M.D.
[2024-03-07 22:27] LABS: Troponin I 0.048 ng/mL (0.000-0.034)
[2024-03-08] VITALS (13 sets, daily range): BP systolic 129–151; BP diastolic 76–99; PULSE 76–195; RESP 16–20; TEMP 36.3–36.7; O2SAT 96–99; BMI 29.7
[2024-03-08] MEDS: LACTATED RINGERS 1,000 ML 125 ML IV CONT ×2 (01:12→09:45)
[2024-03-08 01:22] LABS: Troponin I 0.051 ng/mL (0.000-0.034)
--- NOTE | 2024-03-08 02:00 | ADMGEN ---
This patient, Radha Huynh, was admitted to 3 [facility] Surg Room 317-01. Patient/family oriented to hospital policies and general routines including ID bracelet, bed and alarms, visiting hours, pain management, procedures, bathroom and other care routines, personal items, smoking policy, room service/diet, and visiting hours. Information on how to activate the Rapid Response Team has been discussed. Patient/Family are encouraged to report perceived risks to care and to ask questions if they do not understand what they are told or what they should do.
--- NOTE | 2024-03-08 17:27 | P.HP_ITS ---
H&P: HPI History of Present Illness Date/Time: 03/08/24 11:27 Chief Complaint: Chest Discomfort Narrative: Patient presented to the ER with reports of chest discomfort with palpitations. She reports a Hx of A-Fib and states that she's normally in A-Fib RVR when she has similar sensations, so she came to the ER for evaluation. Patient denies any recent illness or medications, reports normal appetite and drinking. Patient denies any previous Hx of renal disease and denies diarrhea or vomiting. She's unaware of the origin of her symptoms. Review of Systems Review of Systems: All systems reviewed & are unremarkable except as noted in HPI and below PMFSH Past Medical History Medical History Irritable bowel syndrome Gallbladder disorder Arthritis Vitamin B12 deficiency Atrial fibrillation with slow ventricular response Chronic kidney disease, stage 3b Chronic kidney disease Baseline creatinine is around 1.50. Restless leg syndrome Congestive heart failure Echocardiogram in March 2021 showed normal FVC size, moderate LVH, borderline LV systolic function with an EF of 50 to 55%, and grade 1 diastolic dysfunction. Depression with anxiety Degenerative joint disease Burst fracture of thoracic vertebra Kidney stone Obstructive sleep apnea on CPAP Diverticulitis Hypertension Type 2 diabetes mellitus Chronic obstructive pulmonary disease Patient had a pulmonary function test on 02/24/2020 which was suggestive of COPD. Chronic anticoagulation Paroxysmal atrial fibrillation On amiodarone therapy Depression Hyperlipidemia Herniated disc Surgical History Surgical History History of right knee surgery Ligamentous repair. History of bilateral cataract extraction History of mechanical aortic valve replacement (2003) [facility] valve. History of ankle surgery ORIF left ankle fracture. History of hysterectomy Family History Family History Mother Family history of cardiovascular disease Family history of arthritis CHF (congestive heart failure) Depression Family history of coronary artery disease Father Family history of cardiovascular disease Diabetes mellitus Family history of arthritis Acute myocardial infarction Family history of diabetes mellitus in first degree relative Sibling , cancer Family history of arthritis Malignant neoplasm of prostate Sibling Family history of arthritis Malignant neoplasm of prostate Social History Social History Social History: The patient is and lives in her own home with her small dog. 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 No alcohol or illicit drug use. Surrogate decision maker: Shannon Vigil, sister. Code status: Full code. Smoking status: Never smoker Second hand tobacco smoke exposure: No Alcohol intake: never Substance use: never Substance use type: does not use Do You Feel Safe in your Home?: Yes Lack of Transportation: YES Lack of Food: Never True Current Housing: I Have Housing Concerned About Future Housing: No Difficulty Paying Gas/Electric Bills: No Difficulty Paying for Meds: No Currently Unemployed: No Education: Grade School Difficulty w/ Childcare or Family Care: No Living arrangements: alone Occupation/Education: retired Additional gender identity comments: [employer] work Spiritual care concerns: No Agree to blood products: Yes Meds Home Medications and Allergies Home Medications ?Medication ?Instructions ?Recorded ?Confirmed ?Type albuterol sulfate 90 mcg/actuation 2 puff inhalation QID PRN 01/09/19 03/08/24 History aerosol inhaler Shortness Of Breath gabapentin 300 mg capsule 300 mg PO Q12H 01/09/19 03/08/24 History venlafaxine 150 mg 150 mg PO DAILY 01/09/19 03/08/24 History capsule,extended release 24 hr furosemide 20 mg tablet 20 mg PO DAILY 03/18/22 03/08/24 History potassium chloride 10 mEq 10 meq PO HS 03/18/22 03/08/24 History tablet,extended release cholecalciferol (vitamin D3) 1,000 units PO DAILY 08/23/23 03/08/24 History simvastatin 10 mg PO HS 08/23/23 03/08/24 History cyanocobalamin (vitamin B-12) 1,000 mcg PO DAILY #30 caps 08/26/23 03/08/24 Rx 1,000 mcg capsule metoprolol succinate 25 mg 12.5 mg (1/2 x 25 mg) PO DAILY #30 08/26/23 03/08/24 Rx tablet,extended release 24 hr tabs alprazolam 0.5 mg tablet 0.25 mg PO HS PRN Anxiety 11/01/23 03/08/24 History hydrocodone 5 mg-acetaminophen 325 1 - 2 tablet PO Q6H PRN Pain 11/01/23 03/08/24 History mg tablet omeprazole 40 mg capsule,delayed 40 mg PO DAILY 11/01/23 03/08/24 History release semaglutide 0.25 mg or 0.5 mg (2 0.5 mg subcut WEEKLY 11/12/23 03/08/24 History mg/3 mL) subcutaneous pen injector (Ozempic) cinacalcet 30 mg tablet 15 mg PO DAILY 12/13/23 03/08/24 History methimazole 5 mg tablet 5 mg PO DAILY 12/13/23 03/08/24 History warfarin 6 mg tablet 6 mg PO DAILY 03/08/24 03/08/24 History Allergies Allergy/AdvReac Type Severity Reaction Status Date / Time adhesive tape Allergy Intermediate Blister Verified 03/07/24 15:30 cortisone Allergy Intermediate Rash Verified 03/07/24 15:30 bacitracin Allergy Mild Rash Verified 03/07/24 15:30 neomycin Allergy Mild Rash Verified 03/07/24 15:30 polymyxin B Allergy Mild Rash Verified 03/07/24 15:30 Vital Signs Vital Signs - 24 hr 03/07/24 19:22 03/08/24 01:29 03/08/24 02:00 Temperature 98.1 F Pulse Rate 97 94 Respiratory Rate 16 20 Blood Pressure 140/79 Pulse Oximetry 99 98 96 Oxygen Delivery Room Air 03/08/24 02:48 03/08/24 02:49 03/08/24 04:00 Temperature Pulse Rate 97 95 Respiratory Rate Blood Pressure Pulse Oximetry Oxygen Delivery Room Air 03/08/24 04:00 03/08/24 08:00 03/08/24 08:03 Temperature 98.1 F 98.0 F Pulse Rate 91 76 96 Respiratory Rate 18 18 Blood Pressure 129/82 132/76 Pulse Oximetry 97 98 Oxygen Delivery 03/08/24 10:03 03/08/24 12:00 Temperature 97.4 F L Pulse Rate 87 Respiratory Rate 18 Blood Pressure 136/77 Pulse Oximetry 97 98 Oxygen Delivery Room Air Exam Narrative: General: Fair appearing, no acute distress. HEENT: Atraumatic, PERRL, EOM, moist mucus membrane, anicteric. NECK: Supple. HEART: RRR, no murmurs. Abdomen: Soft, non-tender, non-distended, +ve bowel sounds X4 quadrants. Extremities: Acyanotic, no edema. Skin: Warm and dry. Neuro: Well oriented, no focal neuro deficits noted. Psych: Pleasant and co-operative. H&P: Results Labs Labs: Short CBC 03/07/24 Range/Units 18:12 WBC 6.8 (4.5-10.0) K/mm3 Hgb 14.2 (12.0-15.0) g/dL Hct 44.1 (37.0-47.0) % Plt Count 234 (150-375) k/mm3 BMP 03/07/24 18:12 Sodium 137 Potassium 4.0 Chloride 105 Carbon Dioxide 31 H BUN 23 H Creatinine 1.70 H Glucose 100 Calcium 11.2 H Cardiac Enzymes 03/07/24 03/07/24 03/07/24 Range/Units 18:12 19:24 21:47 Troponin I 0.055 H* Cancelled 0.048 H* (0.000-0.034) ng/mL 03/08/24 Range/Units 00:47 Troponin I 0.051 H* (0.000-0.034) ng/mL Liver Function 03/07/24 Range/Units 18:12 Total Bilirubin 0.8 (0.2-1.3) mg/dL AST 33 (14-36) U/L ALT 16 (6-35) U/L Alkaline Phosphatase 65 (38-126) U/L Albumin 4.2 (3.5-5.1) g/dL Assessment and Plan Assessment and plan (1) Palpitations: Code(s): R00.2 - Palpitations Status: Acute Assessment and Plan: - Unclear etiology. - Possibly related to dehydration vs meds vs other. - EKG: LBBB, Previous 12/30 EKG SR with LBBB. - Symptoms resolved for now. - Resume metoprolol. (2) Acute kidney injury: Code(s): N17.9 - Acute kidney failure, unspecified Status: Acute Assessment and Plan: - Unclear etiology. - Possibly pre-renal vs poor PO intake vs meds vs other. - Hold lasix for now. - Given fluid bolus in ER. - Gentle IVF hydration. - Repeat renal panel in AM. (3) Congestive heart failure: Code(s): I50.9 - Heart failure, unspecified Status: Acute Assessment and Plan: - Appears compensated. - Hold Lasix for now. (4) HTN (hypertension): Code(s): I10 - Essential (primary) hypertension Status: Acute Assessment and Plan: - Appears well controlled. - Continue metoprolol for now. (5) Paroxysmal A-fib: Code(s): I48.0 - Paroxysmal atrial fibrillation Status: Acute Assessment and Plan: - Rate currently well controlled. - Continue Warfarin and Metoprolol. (6) Hyperlipidemia: Code(s): E78.5 - Hyperlipidemia, unspecified Status: Acute Assessment and Plan: - Resume statin. Quality VTE Prophylaxis VTE prophylaxis: pharmacologic ordered Hospitalist MIPS Advance Care Plan I have confirmed that the patient's Advanced Care Plan is present, code status is documented, or surrogate decision maker is listed in patient medical record.: Yes Medication Reconciliation I have utilized all available resources to obtain, update and review the patients current medications (includes all prescriptions, OTC, herbals, cannabis, and nutritional supplements).: Yes
--- NOTE | 2024-03-08 18:48 | ECG_ITS ---
Test Date: 2024-03-08 18:53:20 Measurements Intervals [place] Rate: P: 0 SD: 0 QRS: 0 QRSD: 0 T: 0 QT: 0 QTc: 0 Interpretive Statements junctional rhythm LEFT BUNDLE BRANCH BLOCKWARNING: DATA QUALITY MAY AFFECT INTERPRETATION Compared to ECG 03/07/2024 22:29:18 PVCs are new Electronically Signed On 03-08-2024 22:37:39 BUTTONHOLE MAKER HAND by Paxton Villela M.D.
[2024-03-08] MEDS: METOPROLOL TARTRATE INJ 5 MG/5 ML VIAL IV PUSH (19:02)
--- NOTE | 2024-03-08 19:05 | PM.EVENT ---
Event Note Event Note Event Note: pt got up to go to the bathroom. went tachycardic to 190s. undelrlying lbbb. bp stable. patient reprots no chest pain. iv metoprolol one dose given 5 mg iv x 1. heart rate controlled. likely afib with rvr with baseline bundle branch block. will resume metoprolol home dose tonight, did not recieve it this am. labs ordered for today. ivf discontinued. check cxr.
[2024-03-08 19:10] LABS: Basophils Absolute Auto 0.1 K/mm3 (0.0-0.1); Basophils Percent Auto 1.1 % (0.2-1.2); Eosinophils Absolute Auto 0.2 K/mm3 (0-0.3); Hemoglobin 11.7 g/dL (12.0-15.0); Immature Granulocyte Absolute 0.01 K/mm3 (0.00-0.031); Immature Granulocyte Percent A 0.2 % (0-0.5); Lymphocytes Absolute Auto 1.43 K/mm3 (0.9-3.2); Lymphocytes Percent Auto 25.6 % (18.3-44.2); Mean Corpuscular HGB Conc 32.5 g/dl (32-36); Mean Corpuscular Hemoglobin 32.8 pg (26-34); Mean Corpuscular Volume 100.8 fl (80-100); Mean Platelet Volume 12.8 fl (7.4-10.4); Monocytes Absolute Auto 0.7 K/mm3 (0.1-0.6); Monocytes Percent Auto 12.2 % (2.6-8.5); Neutrophils Absolute Auto 3.2 K/mm3 (1.3-6.7); Neutrophils Percent Auto 57.9 % (45.5-73.1); Platelet Count Result 199 k/mm3 (150-375); Red Blood Count 3.57 M/mm3 (4.2-5.4); Red Cell Distribution Width 13.1 % (11.5-14.5); White Blood Count 5.6 K/mm3 (4.5-10.0)
[2024-03-08 19:19] LABS: Alanine Aminotransferase 14 U/L (6-35); Albumin Level 3.5 g/dL (3.5-5.1); Alkaline Phosphatase 59 U/L (38-126); Anion Gap -1 mmol/L (4-12); Aspartate Amino Transferase 28 U/L (14-36); Bilirubin,Total 0.5 mg/dL (0.2-1.3); Blood Urea Nitrogen 20 mg/dL (7-17); Carbon Dioxide 29 mmol/L (22-30); Chloride 108 mmol/L (98-107); Estimated CRCL calculation 36 ml/min; Estimated Glomerular Filt Rate 43; Glucose 177 mg/dL (65-110); Magnesium 1.6 mg/dL (1.6-2.3); Sodium 136 mmol/L (137-145)
[2024-03-08 19:36] LABS: Troponin I 0.047 ng/mL (0.000-0.034)
[2024-03-08 19:41] LABS: Glucose Point of Care 197 mg/dl (65-105)
[2024-03-08 21:17] LABS: Glucose Point of Care 135 mg/dl (65-105)
[2024-03-08] MEDS: WARFARIN (*PBKC) 3 MG TABLET 6 MG PO (21:24)
[2024-03-08] MEDS: SIMVASTATIN 10 MG TABLET PO (21:24)
[2024-03-08] MEDS: HYDROcodone/acetaminophen (*CRX) 5-325 MG TABLET 1 TAB PO (21:25)
[2024-03-08] MEDS: METOPROLOL SUCCINATE EXT REL 12.5 MG TABCR PO (21:25)
[2024-03-08] MEDS: GABAPENTIN 300 MG CAPSULE PO (21:25)
[2024-03-08] MEDS: POTASSIUM CHLORIDE 10 MEQ ER TABLET PO (21:25)
[2024-03-08] MEDS: ALPRAZolam (*CRX) 0.25 MG TABLET PO (21:25)
[2024-03-08 23:35] LABS: Troponin I 0.047 ng/mL (0.000-0.034)
[2024-03-09] VITALS (8 sets, daily range): BP systolic 115–152; BP diastolic 30–90; PULSE 64–97; RESP 16–20; TEMP 35.9–36.7; O2SAT 95–100
--- NOTE | 2024-03-09 01:30 | ECG_ITS ---
Test Date: 2024-03-09 01:34:29 Measurements Intervals [place] Rate: 92 P: 0 ME: 0 QRS: -31 QRSD: 147 T: 114 QT: 411 QTc: 509 Interpretive Statements ATRIAL FIBRILLATION LEFT AXIS DEVIATION [QRS AXIS < -30] LEFT BUNDLE BRANCH BLOCK [120+ ms QRS DURATION, 80+ ms Q/S IN V1/V2, 85+ ms R IN I/aVL/V5/V6] Compared to ECG 03/09/2024 00:50:15 No significant changes Electronically Signed On 03-14-2024 10:12:05 MORTGAGE CLOSING CLERK by Keenan Garland M.D.
--- NOTE | 2024-03-09 01:40 | ECG_ITS ---
Test Date: 2024-03-09 00:50:15 Measurements Intervals [place] Rate: 96 P: 0 AK: 0 QRS: -31 QRSD: 149 T: 119 QT: 385 QTc: 489 Interpretive Statements UNCERTAIN REGULAR RHYTHM LEFT AXIS DEVIATION [QRS AXIS < -30] LEFT BUNDLE BRANCH BLOCK [120+ ms QRS DURATION, 80+ ms Q/S IN V1/V2, 85+ ms R IN I/aVL/V5/V6] Compared to ECG 03/08/2024 18:53:20 Left-axis deviation now present Left bundle-branch block now present Junctional rhythm no longer present Electronically Signed On 03-14-2024 10:11:35 ATHLETIC DIRECTOR by Keenan Garland M.D.
[2024-03-09 01:50] LABS: Anion Gap -3 mmol/L (4-12); Blood Urea Nitrogen 19 mg/dL (7-17); Calcium 9.8 mg/dL (8.4-10.2); Carbon Dioxide 30 mmol/L (22-30); Chloride 109 mmol/L (98-107); Estimated CRCL calculation 36 ml/min; Estimated Glomerular Filt Rate 43; Glucose 112 mg/dL (65-110); Potassium 3.8 mmol/L (3.4-5.0); Sodium 136 mmol/L (137-145)
[2024-03-09 01:57] LABS: INR 1.4
[2024-03-09 02:11] LABS: Troponin I 0.048 ng/mL (0.000-0.034)
[2024-03-09 07:53] LABS: Glucose Point of Care 80 mg/dl (65-105)
[2024-03-09] MEDS: CYANOCOBALAMIN 1,000 MCG TABLET 1000 MCG PO (08:57)
[2024-03-09] MEDS: CHOLECALCIFEROL 1,000 UNITS TABLET 1000 UNITS PO (08:57)
[2024-03-09] MEDS: VENLAFAXINE HCL XR 75 MG CAP.ER.24H 150 MG PO (08:57)
[2024-03-09] MEDS: GABAPENTIN 300 MG CAPSULE PO ×2 (08:57→20:42)
[2024-03-09] MEDS: methiMAzole 5 MG TAB PO (08:57)
[2024-03-09] MEDS: CINACALCET 15 EACH PO (08:58)
[2024-03-09] MEDS: PANTOPRAZOLE 40 MG TABLET PO (09:01)
[2024-03-09 11:39] LABS: Glucose Point of Care 120 mg/dl (65-105)
--- NOTE | 2024-03-09 12:23 | PM.IMPN ---
Progress Note: A&P Assessment and Plan (1) Palpitations: Code(s): R00.2 - Palpitations Status: Acute Assessment and Plan: - Likely due to PAF with RVR. - Better after hydration and resuming home meds. (2) Paroxysmal A-fib: Code(s): I48.0 - Paroxysmal atrial fibrillation Status: Acute Assessment and Plan: - Resting HR 70s-90s, 100s with activity, intermittent RVR with standing. - 03/09 INR 1.4, 03/08 1.5 while on warfarin 6 mg daily, so increased to 8 mg daily and continue daily INR. (3) Acute kidney injury: Code(s): N17.9 - Acute kidney failure, unspecified Status: Acute Assessment and Plan: - Unclear etiology. - Possibly pre-renal vs poor PO intake vs meds vs other. - Hold lasix for now. - 03/09/24 fluids held overnight but will give additional 500 ml bolus as creatinine remains 1.2. (4) Congestive heart failure: Code(s): I50.9 - Heart failure, unspecified Status: Acute Assessment and Plan: - Appears compensated. - Hold Lasix for now. (5) HTN (hypertension): Code(s): I10 - Essential (primary) hypertension Status: Acute Assessment and Plan: - Appears well controlled. - Continue metoprolol XR with dose increased 03/09/24 - Check orthostatic blood pressure 03/09/24 (6) Hyperlipidemia: Code(s): E78.5 - Hyperlipidemia, unspecified Status: Acute Assessment and Plan: - continue statin. Subjective Date/time seen: 03/09/24 12:23 Interval history: Spell during the night of lightheadedness and palpitations when she got out of bed and monitor showed atrial fibrillation with rapid ventricular rate. Received IV metoprolol and resume home metoprolol. Denied any recent change in med decreased appetite or oral intake. Denied use of OTC meds. Her granddaughter manages her medications. Denied chest pain palpitations or shortness of breath today. Tolerated diet well. No GI or complaints. No swelling. Focal weakness. Review of Systems Review of Systems: All systems reviewed & are unremarkable except as noted in HPI and below Exam Narrative: General: Fair appearing, no acute distress. HEENT: Atraumatic, PERRL, moist mucus membrane, anicteric. NECK: No JVD. HEART: irregular, NL S1/S2, no murmurs. Abdomen: Soft, non-tender, non-distended, +ve bowel sounds X4 quadrants. Extremities: Acyanotic, no edema. Skin: Warm and dry. Neuro: No focal neuro deficits noted. Psych: Pleasant and co-operative. A/O x4. Objective Data Vital Signs Vital Signs: Vital Signs - 24 hr 03/08/24 16:00 03/08/24 18:49 03/08/24 19:02 Temperature 97.5 F L Pulse Rate 97 195 H 130 H Respiratory Rate 20 Blood Pressure 148/99 H Pulse Oximetry 99 Oxygen Delivery 03/08/24 20:00 03/08/24 20:00 03/08/24 20:00 Temperature 97.8 F Pulse Rate 95 96 85 Respiratory Rate 18 18 Blood Pressure 151/77 H Pulse Oximetry 97 97 Oxygen Delivery Room Air 03/08/24 21:25 03/09/24 00:00 03/09/24 00:00 Temperature 97.0 F L Pulse Rate 96 97 97 Respiratory Rate 20 Blood Pressure 152/90 H Pulse Oximetry 95 Oxygen Delivery 03/09/24 03:37 03/09/24 04:00 Temperature 98.0 F Pulse Rate 95 73 Respiratory Rate 16 Blood Pressure 115/77 Pulse Oximetry 99 Oxygen Delivery Intake/Output Intake/Output: Intake & Output 03/06/24 03/07/24 03/08/24 03/09/24 23:59 23:59 23:59 23:59 Intake Total 1000 1700 550 Output Total 1300 250 Balance 1000 400 300 Meds/Results Medications: Active Medications Generic Name Dose Route Start Last Admin Trade Name Freq PRN Reason Stop Dose Admin Hydrocodone Bitart/Acetaminophen 1 tab 03/08/24 17:21 03/08/24 21:25 Hydrocodone/Acetaminophen (*Crx) 5-325 Mg Tablet PO 1 tab Q6H PRN Administration Pain Rated 4-6 Albuterol 2 puff 03/08/24 17:21 Albuterol Sulfate (*Sp) Aerosol 1 Puff INHALATION QID PRN Shortness Of Breath Alprazolam 0.25 mg 03/08/24 17:21 03/08/24 21:25 Alprazolam (*Crx) 0.25 Mg Tablet PO 0.25 mg HS PRN Administration Anxiety Cyanocobalamin 1,000 mcg 03/09/24 09:00 03/09/24 08:57 Cyanocobalamin 1,000 Mcg Tablet PO 1,000 mcg DAILY IAN Administration Gabapentin 300 mg 03/08/24 21:00 03/09/24 08:57 Gabapentin 300 Mg Capsule PO 300 mg Q12HR IAN Administration Sodium Chloride 1,000 mls @ 50 mls/hr 03/08/24 17:25 Normal Saline Iv IV CONT .Q20H IAN Methimazole 5 mg 03/09/24 09:00 03/09/24 08:57 Methimazole 5 Mg Tab PO 5 mg DAILY IAN Administration Metoprolol Succinate 12.5 mg 03/09/24 21:00 Metoprolol Succinate Ext Rel 12.5 Mg Tabcr PO DAILY IAN Cinacalcet 15 Mg 15 each 03/09/24 09:00 03/09/24 08:58 Tablet PO 15 each DAILY IAN Administration Cinacalcet 15 Mg 0 each 03/10/24 09:00 Tablet PO 04/09/24 08:59 DAILY IAN Pantoprazole Sodium 40 mg 03/09/24 09:00 03/09/24 09:01 Pantoprazole 40 Mg Tablet PO 40 mg QAM IAN Administration Potassium Chloride 10 meq 03/08/24 21:00 03/08/24 21:25 Potassium Chloride 10 Meq Er Tablet PO 10 meq HS IAN Administration Simvastatin 10 mg 03/08/24 21:00 03/08/24 21:24 Simvastatin 10 Mg Tablet PO 10 mg HS IAN Administration Venlafaxine HCl 150 mg 03/09/24 09:00 03/09/24 08:57 Venlafaxine Hcl Xr 75 Mg Cap.Er.24h PO 150 mg DAILY IAN Administration Vitamin D 1,000 units 03/09/24 09:00 03/09/24 08:57 Cholecalciferol 1,000 Units Tablet PO 1,000 units DAILY IAN Administration Warfarin Sodium 6 mg 03/08/24 18:00 03/08/24 21:24 Warfarin (*Pbkc) 3 Mg Tablet PO 6 mg DAILY@1700 IAN Administration Radiology Results: ITS Impressions Chest X-Ray 03/08/24 19:52 IMPRESSION: New subsegmental left basilar opacities likely represent atelectasis. Infection not excluded. Small left and trace right pleural effusions. Labs Labs: Laboratory Results - last 24 hr 12/31/24 12/31/24 12/31/24 18:45 19:05 20:37 WBC 5.6 RBC 3.57 L Hgb 11.7 L Hct 36.0 L MCV 100.8 H MCH 32.8 MCHC 32.5 RDW 13.1 Plt Count 199 MPV 12.8 H Immature Gran % (Auto) 0.2 Neut % (Auto) 57.9 Lymph % (Auto) 25.6 [place] % (Auto) 12.2 H Eos % (Auto) 3.0 Baso % (Auto) 1.1 Lymph # (Auto) 1.43 [place] # (Auto) 0.7 H Eos # (Auto) 0.2 Baso # (Auto) 0.1 Abs Immat Gran (auto) 0.01 Absolute Neuts (auto) 3.2 Absolute Nucleated RBC 0.000 Nucleated RBC % 0.0 PT INR Sodium 136 L Potassium 4.0 Chloride 108 H Carbon Dioxide 29 Anion Gap -1 L BUN 20 H Creatinine 1.20 H Estim Creat Clear Calc 36 Estimated GFR 43 L Glucose 177 H POC Capillary Glucose 197 H 135 H Calcium 10.0 Magnesium 1.6 Total Bilirubin 0.5 AST 28 ALT 14 Alkaline Phosphatase 59 Troponin I 0.047 H* Total Protein 6.0 L Albumin 3.5 03/08/24 03/09/24 03/09/24 22:42 01:28 07:46 WBC RBC Hgb Hct MCV MCH MCHC RDW Plt Count MPV Immature Gran % (Auto) Neut % (Auto) Lymph % (Auto) [place] % (Auto) Eos % (Auto) Baso % (Auto) Lymph # (Auto) [place] # (Auto) Eos # (Auto) Baso # (Auto) Abs Immat Gran (auto) Absolute Neuts (auto) Absolute Nucleated RBC Nucleated RBC % PT 18.0 H INR 1.4 Sodium 136 L Potassium 3.8 Chloride 109 H Carbon Dioxide 30 Anion Gap -3 L BUN 19 H Creatinine 1.20 H Estim Creat Clear Calc 36 Estimated GFR 43 L Glucose 112 H POC Capillary Glucose 80 Calcium 9.8 Magnesium Total Bilirubin AST ALT Alkaline Phosphatase Troponin I 0.047 H* 0.048 H* Total Protein Albumin 03/09/24 11:26 WBC RBC Hgb Hct MCV MCH MCHC RDW Plt Count MPV Immature Gran % (Auto) Neut % (Auto) Lymph % (Auto) [place] % (Auto) Eos % (Auto) Baso % (Auto) Lymph # (Auto) [place] # (Auto) Eos # (Auto) Baso # (Auto) Abs Immat Gran (auto) Absolute Neuts (auto) Absolute Nucleated RBC Nucleated RBC % PT INR Sodium Potassium Chloride Carbon Dioxide Anion Gap BUN Creatinine Estim Creat Clear Calc Estimated GFR Glucose POC Capillary Glucose 120 H Calcium Magnesium Total Bilirubin AST ALT Alkaline Phosphatase Troponin I Total Protein Albumin Hospitalist MIPS Advance Care Plan I have confirmed that the patient's Advanced Care Plan is present, code status is documented, or surrogate decision maker is listed in patient medical record.: Yes
[2024-03-09] MEDS: METOPROLOL SUCCINATE EXT REL 12.5 MG TABCR PO (15:01)
[2024-03-09] MEDS: SODIUM CHLORIDE 0.9% IV 500 ML 125 ML IV CONT (15:01)
[2024-03-09 17:12] LABS: Glucose Point of Care 113 mg/dl (65-105)
[2024-03-09] MEDS: WARFARIN (*PBKC) 4 MG TABLET 8 MG PO (17:40)
[2024-03-09] MEDS: SIMVASTATIN 10 MG TABLET PO (20:42)
[2024-03-09] MEDS: POTASSIUM CHLORIDE 10 MEQ ER TABLET PO (20:42)
[2024-03-09] MEDS: HYDROcodone/acetaminophen (*CRX) 5-325 MG TABLET 1 TAB PO (20:42)
[2024-03-09] MEDS: ALPRAZolam (*CRX) 0.25 MG TABLET PO (20:42)
[2024-03-09 21:01] LABS: Glucose Point of Care 122 mg/dl (65-105)
[2024-03-10] VITALS (14 sets, daily range): BP systolic 129–151; BP diastolic 54–88; PULSE 75–128; RESP 16–22; TEMP 36.7–38.5; O2SAT 92–98
[2024-03-10 06:53] LABS: Albumin Level 3.1 g/dL (3.5-5.1); Anion Gap -2 mmol/L (4-12); Blood Urea Nitrogen 15 mg/dL (7-17); Calcium 9.7 mg/dL (8.4-10.2); Carbon Dioxide 31 mmol/L (22-30); Chloride 107 mmol/L (98-107); Estimated CRCL calculation 39 ml/min; Estimated Glomerular Filt Rate 48; Glucose 70 mg/dL (65-110); Phosphorus 2.8 mg/dL (2.5-4.5); Potassium 4.2 mmol/L (3.4-5.0); Sodium 136 mmol/L (137-145)
--- NOTE | 2024-03-10 07:01 | ECG_ITS ---
Test Date: 2024-03-10 07:08:48 Measurements Intervals [place] Rate: 101 P: 0 [place]: 0 QRS: -32 QRSD: 149 T: 94 QT: 361 QTc: 468 Interpretive Statements ATRIAL FIBRILLATION WITH RAPID VENTRICULAR RESPONSE LEFT AXIS DEVIATION [QRS AXIS < -30] LEFT BUNDLE BRANCH BLOCK [120+ ms QRS DURATION, 80+ ms Q/S IN V1/V2, 85+ ms R IN I/aVL/V5/V6] Compared to ECG 03/09/2024 01:34:29 No significant changes Electronically Signed On 03-14-2024 11:19:16 [employer] MANAGER by Keenan Garland M.D.
[2024-03-10 07:28] LABS: Magnesium 1.4 mg/dL (1.6-2.3); Phosphorus 2.8 mg/dL (2.5-4.5)
--- NOTE | 2024-03-10 07:34 | P.PNIM_ITS ---
Progress Note: A&P Assessment and Plan (1) Palpitations: Code(s): R00.2 - Palpitations Status: Acute Assessment and Plan: - Likely due to PAF with RVR. - Better after hydration and resuming home meds. (2) Paroxysmal A-fib: Code(s): I48.0 - Paroxysmal atrial fibrillation Status: Acute Assessment and Plan: - Resting HR 70s-90s, 100s with activity, intermittent RVR with standing. - Change Metoprolol ER 25mg daily to metoprolol tartrate 12.5mg q6 and titrate. 5mg IV metoprolol --INR goal as noted for mechanical heart valve --Repeat TTE --Cardiology consult (3) Acute kidney injury: Code(s): N17.9 - Acute kidney failure, unspecified Status: Acute Assessment and Plan: Ddx pre-renal vs poor PO intake vs meds vs other. s/p 500 bolus yesterday - Hold lasix for now. -500ml bolus with IV metoprolol today (4) Congestive heart failure: Code(s): I50.9 - Heart failure, unspecified Status: Acute Assessment and Plan: 08/24/23 Echo: TDS. EF 45%, biatrial enlargement, suspect (YADIRA 1.4 cm2), mod MR, mild-mod TR. Shortness - Hold Lasix for now --Check BNP --Repeat TTE (5) HTN (hypertension): Code(s): I10 - Essential (primary) hypertension Status: Acute Assessment and Plan: - Appears well controlled. - Continue metoprolol, change from XL to IR for titration - Follow orthostatic blood pressures (6) Hyperlipidemia: Code(s): E78.5 - Hyperlipidemia, unspecified Status: Acute Assessment and Plan: - continue statin. (7) Mechanical heart valve present: Code(s): Z95.2 - Presence of prosthetic heart valve Status: Acute Assessment and Plan: Audible mechanical heart valve. INR subtherapeutic for several days, 1.5, 1.4, 1 today. Goal INR 2.5-3 --Start a heparin drip with a bolus --Follow CBC since trending down but may be dilutional --Warfarin 8mg<10mg --Daily INR (8) Shortness of breath: Code(s): R06.02 - Shortness of breath Status: Acute Assessment and Plan: Mildly tachypneic. Not obviously overloaded on exam, may be 2/2 --Starting heparin drip, if not resolved consider a CT r/o PE, but is on warfarin chronically for mechanical heart valve --Repeat troponin & nt-ProBNP this afternoon (9) Anemia: Code(s): D64.9 - Anemia, unspecified Status: Acute Assessment and Plan: Blood count trending down since admission but may be dilutional 14.2>11.1 --check Iron panel, ferritin, b12, LDH. Repeat CBC this afternoon Time Spent With Patient Time: 59 minutes Subjective Date/time seen: 03/10/24 07:34 Interval history: Called for afib with RVR. Patient reports more shortness of breath than yesterday. No chest pain IV metoprolol, fluids, and repleting magnesium Starting a heparin drip, INR was therapeutic and patient has a mechanical valve Review of Systems Review of Systems: All systems reviewed & are unremarkable except as noted in HPI and below Exam Narrative: General: Fair appearing, no acute distress. HEENT: Atraumatic, PERRL, moist mucus membrane, anicteric. NECK: No JVD. HEART: irregular, NL S1/S2, no murmurs. mechanical valve/click Abdomen: Soft, non-tender, non-distended, +ve bowel sounds X4 quadrants. Extremities: Acyanotic, no edema. Skin: Warm and dry. Neuro: No focal neuro deficits noted. Psych: Pleasant and co-operative. A/O x4. Objective Data Vital Signs Vital Signs: Vital Signs - 24 hr 03/09/24 08:00 03/09/24 08:00 03/09/24 12:00 Temperature 96.6 F L Pulse Rate 65 78 80 Respiratory Rate 18 Blood Pressure 115/38 L Pulse Oximetry 100 Oxygen Delivery 03/09/24 12:00 03/09/24 16:00 03/09/24 16:00 Temperature 96.6 F L 96.8 F L Pulse Rate 78 78 64 Respiratory Rate 18 18 Blood Pressure 118/40 L 116/30 L Pulse Oximetry 100 100 Oxygen Delivery 03/09/24 20:00 03/09/24 20:00 03/09/24 20:00 Temperature 97.0 F L Pulse Rate 89 89 79 Respiratory Rate 18 18 Blood Pressure 134/73 Pulse Oximetry 98 98 Oxygen Delivery Room Air 03/09/24 23:25 03/10/24 00:00 03/10/24 03:32 Temperature 97.4 F L 98.4 F Pulse Rate 67 80 75 Respiratory Rate 18 16 Blood Pressure 133/67 134/54 L Pulse Oximetry 97 97 Oxygen Delivery 03/10/24 04:00 Temperature Pulse Rate 94 Respiratory Rate Blood Pressure Pulse Oximetry Oxygen Delivery Intake/Output Intake/Output: Intake & Output 03/07/24 03/08/24 03/09/24 03/10/24 23:59 23:59 23:59 23:59 Intake Total 1000 1700 2750 550 Output Total 1300 1100 150 Balance 9422 303 8433 400 Meds/Results Medications: Active Medications Generic Name Dose Route Start Last Admin Trade Name Freq PRN Reason Stop Dose Admin Hydrocodone Bitart/Acetaminophen 1 tab 03/08/24 17:21 03/09/24 20:42 Hydrocodone/Acetaminophen (*Crx) 5-325 Mg Tablet PO 1 tab Q6H PRN Administration Pain Rated 4-6 Albuterol 2 puff 03/08/24 17:21 Albuterol Sulfate (*Sp) Aerosol 1 Puff INHALATION QID PRN Shortness Of Breath Alprazolam 0.25 mg 03/08/24 17:21 03/09/24 20:42 Alprazolam (*Crx) 0.25 Mg Tablet PO 0.25 mg HS PRN Administration Anxiety Cyanocobalamin 1,000 mcg 03/09/24 09:00 03/09/24 08:57 Cyanocobalamin 1,000 Mcg Tablet PO 1,000 mcg DAILY IAN Administration Gabapentin 300 mg 03/08/24 21:00 03/09/24 20:42 Gabapentin 300 Mg Capsule PO 300 mg Q12HR IAN Administration Sodium Chloride 1,000 mls @ 50 mls/hr 03/08/24 17:25 03/09/24 17:41 Normal Saline Iv IV CONT Not Given .Q20H IAN Magnesium Sulfate 4 gm in 100 mls @ 25 mls/hr 03/10/24 07:32 Magnesium Sulf 4 Gm/[id number] IVPB 03/10/24 11:31 ONCE ONE Methimazole 5 mg 03/09/24 09:00 03/09/24 08:57 Methimazole 5 Mg Tab PO 5 mg DAILY IAN Administration Metoprolol Succinate 25 mg 03/10/24 09:00 Metoprolol Succinate Ext Rel 25 Mg Tabcr PO DAILY IAN Cinacalcet 15 Mg 15 each 03/09/24 09:00 03/09/24 08:58 Tablet PO 15 each DAILY IAN Administration Cinacalcet 15 Mg 0 each 03/10/24 09:00 Tablet PO 04/09/24 08:59 DAILY [facility] Pantoprazole Sodium 40 mg 03/09/24 09:00 03/09/24 09:01 Pantoprazole 40 Mg Tablet PO 40 mg QAM IAN Administration Potassium Chloride 10 meq 03/08/24 21:00 03/09/24 20:42 Potassium Chloride 10 Meq Er Tablet PO 10 meq HS IAN Administration Simvastatin 10 mg 03/08/24 21:00 03/09/24 20:42 Simvastatin 10 Mg Tablet PO 10 mg HS IAN Administration Venlafaxine HCl 150 mg 03/09/24 09:00 03/09/24 08:57 Venlafaxine Hcl Xr 75 Mg Cap.Er.24h PO 150 mg DAILY IAN Administration Vitamin D 1,000 units 03/09/24 09:00 03/09/24 08:57 Cholecalciferol 1,000 Units Tablet PO 1,000 units DAILY IAN Administration Warfarin Sodium 8 mg 03/09/24 17:00 03/09/24 17:40 Warfarin (*Pbkc) 4 Mg Tablet PO 8 mg DAILY@1700 IAN Administration Radiology Results: ITS Impressions Chest X-Ray 03/08/24 19:52 IMPRESSION: New subsegmental left basilar opacities likely represent atelectasis. Infection not excluded. Small left and trace right pleural effusions. Labs Labs: Laboratory Results - last 24 hr 03/09/24 03/09/24 03/09/24 07:46 11:26 16:58 Sodium Potassium Chloride Carbon Dioxide Anion Gap BUN Creatinine Estim Creat Clear Calc Estimated GFR Glucose POC Capillary Glucose 80 120 H 113 H Calcium Phosphorus Magnesium Albumin 03/09/24 03/10/24 03/10/24 20:46 06:25 06:25 Sodium 136 L Potassium 4.2 Chloride 107 Carbon Dioxide 31 H Anion Gap -2 L BUN 15 Creatinine 1.10 H Estim Creat Clear Calc 39 Estimated GFR 48 L Glucose 70 POC Capillary Glucose 122 H Calcium 9.7 Phosphorus 2.8 2.8 Magnesium 1.4 L Albumin 3.1 L Quality VTE Prophylaxis VTE prophylaxis: pharmacologic ordered Hospitalist MIPS Advance Care Plan I have confirmed that the patient's Advanced Care Plan is present, code status is documented, or surrogate decision maker is listed in patient medical record.: Yes Medication Reconciliation I have utilized all available resources to obtain, update and review the patients current medications (includes all prescriptions, OTC, herbals, cannabis, and nutritional supplements).: Yes
[2024-03-10 07:35] LABS: Prothrombin Time 13.5 Seconds (11.1-14.7)
[2024-03-10 07:45] LABS: Glucose Point of Care 106 mg/dl (65-105)
[2024-03-10 07:50] LABS: Basophils Absolute Auto 0.1 K/mm3 (0.0-0.1); Basophils Percent Auto 0.8 % (0.2-1.2); Eosinophils Absolute Auto 0.1 K/mm3 (0-0.3); Eosinophils Percent Auto 2.2 % (0-4.4); Hematocrit 35.1 % (37.0-47.0); Hemoglobin 11.1 g/dL (12.0-15.0); Immature Granulocyte Absolute 0.02 K/mm3 (0.00-0.031); Immature Granulocyte Percent A 0.3 % (0-0.5); Lymphocytes Percent Auto 9.3 % (18.3-44.2); Mean Corpuscular HGB Conc 31.6 g/dl (32-36); Mean Corpuscular Hemoglobin 32.7 pg (26-34); Mean Corpuscular Volume 103.5 fl (80-100); Mean Platelet Volume 13.4 fl (7.4-10.4); Monocytes Absolute Auto 0.7 K/mm3 (0.1-0.6); Monocytes Percent Auto 10.3 % (2.6-8.5); Neutrophils Percent Auto 77.1 % (45.5-73.1); Platelet Count Result 164 k/mm3 (150-375); Red Blood Count 3.39 M/mm3 (4.2-5.4); White Blood Count 6.5 K/mm3 (4.5-10.0)
[2024-03-10 07:52] LABS: Partial Thromboplastin Time 28.8 Seconds (22.3-36.8)
[2024-03-10] MEDS: HEPARIN SOD/D5W 100 UNITS/ML 25,000 UNITS/250 ML BAG 12 UNITS IV CONT (08:06)
[2024-03-10] MEDS: HEPARIN SODIUM 5,000 UNITS/ML VIAL 5500 UNITS IV PUSH (08:12)
[2024-03-10] MEDS: MAGNESIUM SULF 4 GM/WATER100ML 4 GM/100 ML BAG IVPB (08:31)
[2024-03-10] MEDS: METOPROLOL TARTRATE INJ 5 MG/5 ML VIAL IV PUSH (08:40)
[2024-03-10] MEDS: SODIUM CHLORIDE 0.9% IV 250 ML BAG 500 ML IVPB (08:49)
[2024-03-10] MEDS: VENLAFAXINE HCL XR 75 MG CAP.ER.24H 150 MG PO (08:51)
[2024-03-10] MEDS: methiMAzole 5 MG TAB PO (08:51)
[2024-03-10] MEDS: CHOLECALCIFEROL 1,000 UNITS TABLET 1000 UNITS PO (08:51)
[2024-03-10] MEDS: PANTOPRAZOLE 40 MG TABLET PO (08:51)
[2024-03-10] MEDS: CYANOCOBALAMIN 1,000 MCG TABLET 1000 MCG PO (08:51)
[2024-03-10] MEDS: GABAPENTIN 300 MG CAPSULE PO ×2 (08:51→20:56)
[2024-03-10] MEDS: METOPROLOL TARTRATE 12.5 MG TABLET PO ×3 (08:52→18:21)
[2024-03-10] MEDS: CINACALCET 15 EACH PO (08:53)
[2024-03-10] MEDS: CINACALCET PO (09:20)
[2024-03-10] MEDS: HYDROcodone/acetaminophen (*CRX) 5-325 MG TABLET 1 TAB PO (10:55)
[2024-03-10 11:35] LABS: Glucose Point of Care 110 mg/dl (65-105)
[2024-03-10] MEDS: DICLOFENAC SODIUM 1% 100 GM GEL (*BKC) 1 APPLIC TOPICAL (12:24)
[2024-03-10 12:46] LABS: Influenza A QL RT-PCR Negative (Negative); Influenza B QL RT-PCR Negative (Negative); RSV RNA, RT-PCR Negative (Negative); SARS-CoV-2 RNA PCR Negative (Negative)
[2024-03-10 13:00] LABS: Add Urine Microscopic? NO; Appearance Urine Clear (Clear); Bilirubin Urine Negative (Negative); Blood Urine Negative (Negative); Color Urine Yellow (Yellow); Glucose Urine UA Negative (Negative); Ketones Urine Negative (Negative); Leukocyte Esterase Ur Negative LEU/UL (Negative); Nitrate Urine Negative (Negative); Protein Urine Negative (Negative); Specific Grav Ur 1.006 (1.001-1.035); Urobilinogen Urine 0.2 mg/dL (<2.0); pH Urine 6.5 (5.0-9.0)
[2024-03-10] MEDS: SODIUM CHLORIDE 0.9% IV 1,000 ML 50 ML IV CONT ×2 (13:00→18:25)
[2024-03-10 14:31] LABS: Basophils Absolute Auto 0.1 K/mm3 (0.0-0.1); Basophils Percent Auto 0.9 % (0.2-1.2); Eosinophils Absolute Auto 0.1 K/mm3 (0-0.3); Eosinophils Percent Auto 2.1 % (0-4.4); Hematocrit 33.4 % (37.0-47.0); Hemoglobin 10.7 g/dL (12.0-15.0); Immature Granulocyte Absolute 0.02 K/mm3 (0.00-0.031); Immature Granulocyte Percent A 0.3 % (0-0.5); Immature Platelet Fraction Pct 12.5 % (0.9-11.2); Lymphocytes Percent Auto 8.7 % (18.3-44.2); Mean Corpuscular Hemoglobin 32.8 pg (26-34); Mean Corpuscular Volume 102.5 fl (80-100); Mean Platelet Volume 13.2 fl (7.4-10.4); Monocytes Absolute Auto 0.7 K/mm3 (0.1-0.6); Neutrophils Absolute Auto 4.4 K/mm3 (1.3-6.7); Platelet Count Result 155 k/mm3 (150-375); Red Blood Count 3.26 M/mm3 (4.2-5.4); Red Cell Distribution Width 13.1 % (11.5-14.5); White Blood Count 5.8 K/mm3 (4.5-10.0)
[2024-03-10 14:42] LABS: Alanine Aminotransferase 12 U/L (6-35); Albumin Level 3.3 g/dL (3.5-5.1); Alkaline Phosphatase 48 U/L (38-126); Anion Gap -1 mmol/L (4-12); Aspartate Amino Transferase 27 U/L (14-36); Bilirubin,Total 0.6 mg/dL (0.2-1.3); Blood Urea Nitrogen 13 mg/dL (7-17); Calcium 9.7 mg/dL (8.4-10.2); Carbon Dioxide 28 mmol/L (22-30); Chloride 105 mmol/L (98-107); Estimated CRCL calculation 42 ml/min; Estimated Glomerular Filt Rate 53; Glucose 95 mg/dL (65-110); Lactate Dehydrogenase 245 U/L (120-246); Potassium 4.1 mmol/L (3.4-5.0); Sodium 132 mmol/L (137-145)
[2024-03-10 14:57] LABS: NT Pro B Type Natriuretic Pept 10000 pg/mL (19.9-100); Troponin I 0.046 ng/mL (0.000-0.034)
[2024-03-10 16:08] LABS: Partial Thromboplastin Time > 200.0 Seconds (22.3-36.8)
[2024-03-10 16:18] LABS: Iron 22 ug/dL (37-170); Percent Iron Saturation 8 % (20-50); TOTAL IRON BINDING CAPACITY 290 ug/dL (261-462)
[2024-03-10 16:36] LABS: Glucose Point of Care 103 mg/dl (65-105)
--- NOTE | 2024-03-10 16:59 | P.PNCROSS_ITS ---
Event Note Event Note Event Note: I was consulted on Ms Huynh. She is a patient of Dr Evanss. [facility] group is davide red care of his patients. I called Dr Dey and he will see her. I called Dr Pitts and appraised her as well
--- NOTE | 2024-03-10 16:59 | PM.EVENT ---
Event Note Event Note Event Note: I was consulted on Ms Huynh. She is a patient of Dr Murphy. [facility] group is taking care of his patients. I called Dr Dey and he will see her. I called Dr Pitts and appraised her as well
[2024-03-10] MEDS: WARFARIN (*PBKC) 4 MG TABLET 8 MG PO (18:21)
[2024-03-10] MEDS: SIMVASTATIN 10 MG TABLET PO (20:56)
[2024-03-10] MEDS: POTASSIUM CHLORIDE 10 MEQ ER TABLET PO (20:56)
[2024-03-11] VITALS (14 sets, daily range): BP systolic 115–136; BP diastolic 68–82; PULSE 68–94; RESP 18–24; TEMP 36.4–38; O2SAT 93–99
--- NOTE | 2024-03-11 | ECHO_ITS ---
Patient Info Name: Radha Huynh Age: 78 years : 1945 Gender: Female Ht: 65 in Wt: 178 lbs BSA: 1.95 m2 HR: 80 bpm BP: 138 / 70 mmHg Heart Rhythm: Atrial Fibrillation Technical Quality: Poor Exam Date: 03/11/2024 12:30 PM Exam Location: Echo Lab Patient Status: Inpatient Admit Date: 03/09/2024 Staff Ordering Physician: Olga Pitts APRN Lathe Set Up Person: Sanaz Best RDCS Attending Provider: Olga Pitts APRN Exam Type: CA echo dop color flow w con Study Info Indications - AFIB - SOB Complete two-dimensional, color flow and Doppler transthoracic echocardiogram is performed with contrast to opacify the left ventricle and to improve the deliniation of the left ventricle endocardial borders. Contrast/Agitated Saline Contrast/Ag. Saline: Definity Amount: 2.00 ml Existing IV Access: Yes Reason for Poor Study: poor echocardiographic windows Summary 1. Normal LV size Mild Septal hypertrophy w/ mild-moderately reduced LV systolic function. 2. LVEF is about 35-40%. 3. Hx of prior AVR (mechanical) poorly visualized and has sclerotic valve. 4. Mildy enlarged RV size and preserved LV systolic fxn. 5. Mild AR. 6. Moderate MR and TR. Left Ventricle Left ventricular chamber dimension is normal. Left ventricular systolic function is moderately reduced, estimated at 35-40%. There is mildly increased left ventricular wall thickness. Left ventricular septal wall motion is abnormal with septal motion related to a post-operative state. Right Ventricle Right ventricular chamber dimension is mildly enlarged. Right ventricular systolic function is normal. Left Atria Left atrial chamber dimension is mildly enlarged. Right Atria Right atrial chamber dimension is moderately enlarged. Aortic Valve The Empty aortic valve is not well visualized. There is mild sclerosis of the not well visualized prosthetic aortic valve leaflets. The not well visualized prosthetic aortic valve is not well visualized. There is mild sclerosis of the not well visualized prosthetic aortic valve leaflets. There is mild not well visualized prosthetic aortic valve stenosis with a peak velocity of 256.96 cm/s, mean gradient of 11 mmHg, and aortic valve area of 0.80 cm2. There is mild regurgitation of the not well visualized prosthetic aortic valve. Pulmonic Valve The pulmonic valve is not well visualized. Mitral Valve The mitral valve has thickened leaflets. There is moderate mitral valve regurgitation. There is moderate mitral valve calcification. The mitral valve annulus is moderately calcified. Tricuspid Valve The tricuspid valve leaflets are not well visualized. There is moderate tricuspid valve regurgitation. Mild pulmonary hypertension, estimated pulmonary arterial systolic pressure is 43 mmHg. Pericardium/Pleural The pericardium appears normal. There is no pericardial effusion. Left Ventricular Outflow Tract Name Value Normal LVOT 2D LVOT Diameter 1.85 cm LVOT Doppler LVOT Peak Velocity 80.85 cm/s LVOT Peak Gradient 2 mmHg LVOT Mean Gradient 2 mmHg LVOT VTI 13.47 cm LVOT VTI/AV VTI Ratio 0.30 LVOT Stroke Volume 36.07 ml LVOT CO 2.82 l/min LVOT CI 1.45 L/min/m2 Pulmonic Valve Name Value Normal RVOT Doppler RVOT Peak Gradient 2 mmHg PV Doppler PV Peak Velocity 78.91 cm/s PV Peak Gradient 2 mmHg Mitral Valve Name Value Normal MV Doppler MV Peak Gradient 18 mmHg MV Mean Gradient 7 mmHg MV Decel [place] 1,150.42 cm/s2 MV PHT 0 s MV Area (PHT) 5.42 cm2 4.00-5.00 MV Area (Cont Eq VTI) 1.02 cm2 MV Diastolic Function MV E Peak Velocity 161.07 cm/s MV A Peak Velocity 59.50 cm/s MV E/A 2.71 MV Decel Time 0 s MV Annular TDI MV Septal e' Velocity 5.16 cm/s >=8.00 MV E/e' (Septal) 31.21 <=8.00 MV Lateral e' Velocity 10.13 cm/s >=10.00 MV E/e' (Lateral) 15.90 <=8.00 MV e' Average 7.65 MV E/e' (Average) 23.55 Tricuspid Valve Name Value Normal TV Regurgitation Doppler TR Peak Velocity 286.47 cm/s TR Peak Gradient 33 mmHg Estimated PAP/RSVP RA Pressure 10 mmHg <=5 PA Systolic Pressure 43 mmHg <36 RV Systolic Pressure 43 mmHg <36 TV Annular TDI TV Lateral Megan s' Velocity 4.27 cm/s 9.50-18.70 Aortic Valve Name Value Normal AV Doppler AV Peak Velocity 256.96 cm/s AV Peak Gradient 17 mmHg AV Mean Gradient 11 mmHg AV VTI 45.36 cm AV Area (Cont Eq VTI) 0.80 cm2 >=3.00 AV Area (Cont Eq Randall) 0.84 cm2 AV V1/V2 Ratio 0.31 AV Regurgitation 2D LVOT Area 2.68 cm2 AV Regurgitation Doppler AR Decel Time 1 s AR Decel [place] 443.16 cm/s2 AR PHT 0 s Ventricles Name Value Normal LV Dimensions 2D/MM IVS Diastolic Thickness (2D) 1.38 cm 0.60-1.00 LVID Diastole (2D) 4.22 cm 3.80-5.20 LVIW Diastolic Thickness (2D) 1.94 cm 0.60-0.90 LVID Systole (2D) 3.59 cm 2.20-3.50 LVOT Diameter 1.85 cm LV Mass (2D Cubed) 295.24 g 67.00-162.00 LV Mass Index (2D Cubed) 0.02 g/cm2 0.00-0.01 Relative Wall Thickness (2D) 0.92 LV Fractional Shortening/Ejection Fraction 2D/MM LV Fractional Shortening (2D) 20 % 27-45 LV EF (2D Teicholz) 40 % 54-74 LV Diastolic Volume (4C MOD) 132.78 ml LV EF (4C MOD) 46 % LV Diastolic Volume (2C MOD) 67.59 ml LV EF (2C MOD) 13 % LV Diastolic Volume (BP MOD) 96.72 ml 46.00-106.00 LV Diastolic Volume Index (BP MOD) 0.05 l/m2 0.03-0.06 LV Systolic Volume (BP MOD) 66.86 ml 14.00-42.00 LV Systolic Volume Index (BP MOD) 0.03 l/m2 0.01-0.02 LV EF (BP MOD) 31 % 54-74 LV Diastolic Length (4C) 7.51 cm LV Systolic Length (4C) 7.35 cm LV Stroke Volume (4C MOD) 61.20 ml Atria Name Value Normal LA Dimensions LA Volume (4C A-L) 56.19 ml LA Volume (BP A-L) 65.46 ml RA Dimensions RA Area (4C) 16.85 cm2 <=18.00 Report Signatures
[2024-03-11] MEDS: ACETAMINOPHEN 500 MG TABLET 1000 MG PO (00:10)
[2024-03-11 00:33] LABS: Partial Thromboplastin Time > 200.0 Seconds (22.3-36.8)
[2024-03-11] MEDS: METOPROLOL TARTRATE 12.5 MG TABLET PO ×4 (01:15→17:55)
[2024-03-11 06:52] LABS: Basophils Absolute Auto 0.1 K/mm3 (0.0-0.1); Basophils Percent Auto 1.1 % (0.2-1.2); Eosinophils Absolute Auto 0.1 K/mm3 (0-0.3); Eosinophils Percent Auto 1.4 % (0-4.4); Hematocrit 34.6 % (37.0-47.0); Hemoglobin 10.8 g/dL (12.0-15.0); Immature Granulocyte Absolute 0.02 K/mm3 (0.00-0.031); Immature Granulocyte Percent A 0.5 % (0-0.5); Immature Platelet Fraction Pct 14.7 % (0.9-11.2); Lymphocytes Absolute Auto 0.77 K/mm3 (0.9-3.2); Lymphocytes Percent Auto 17.6 % (18.3-44.2); Mean Corpuscular HGB Conc 31.2 g/dl (32-36); Mean Corpuscular Hemoglobin 32.8 pg (26-34); Mean Corpuscular Volume 105.2 fl (80-100); Mean Platelet Volume 13.4 fl (7.4-10.4); Monocytes Absolute Auto 0.7 K/mm3 (0.1-0.6); Monocytes Percent Auto 15.8 % (2.6-8.5); Neutrophils Absolute Auto 2.8 K/mm3 (1.3-6.7); Neutrophils Percent Auto 63.6 % (45.5-73.1); Platelet Count Result 131 k/mm3 (150-375); Red Blood Count 3.29 M/mm3 (4.2-5.4); Red Cell Distribution Width 13.2 % (11.5-14.5); White Blood Count 4.4 K/mm3 (4.5-10.0)
[2024-03-11 08:21] LABS: INR 1.7; Prothrombin Time 20.4 Seconds (11.1-14.7)
[2024-03-11 08:22] LABS: Partial Thromboplastin Time 45.9 Seconds (22.3-36.8)
[2024-03-11] MEDS: GABAPENTIN 300 MG CAPSULE PO ×2 (10:04→21:40)
[2024-03-11] MEDS: methiMAzole 5 MG TAB PO (10:04)
[2024-03-11] MEDS: CINACALCET PO (10:04)
[2024-03-11] MEDS: CYANOCOBALAMIN 1,000 MCG TABLET 1000 MCG PO (10:04)
[2024-03-11] MEDS: VENLAFAXINE HCL XR 75 MG CAP.ER.24H 150 MG PO (10:04)
[2024-03-11] MEDS: PANTOPRAZOLE 40 MG TABLET PO (10:05)
[2024-03-11] MEDS: CHOLECALCIFEROL 1,000 UNITS TABLET 1000 UNITS PO (10:05)
--- NOTE | 2024-03-11 11:51 | PM.IMPN ---
Progress Note: A&P Assessment and Plan (1) Palpitations: Code(s): R00.2 - Palpitations Status: Acute Assessment and Plan: - Likely due to PAF with RVR. - Better after hydration and resuming home meds. (2) Paroxysmal A-fib: Code(s): I48.0 - Paroxysmal atrial fibrillation Status: Acute Assessment and Plan: - Resting HR 70s-90s, 100s with activity. Rate controlled with increased dose of metoprolol - Change Metoprolol ER 25mg daily to metoprolol tartrate 12.5mg q6 and titrate. 5mg IV metoprolol --INR goal as noted for mechanical heart valve --Cardiology consulted, [facility] will see her (3) Acute kidney injury: Code(s): N17.9 - Acute kidney failure, unspecified Status: Acute Assessment and Plan: Ddx pre-renal vs poor PO intake vs meds vs other. s/p 500 bolus yesterday --Resuming lasix (4) HTN (hypertension): Code(s): I10 - Essential (primary) hypertension Status: Acute Assessment and Plan: - Appears well controlled. - Continue metoprolol, changed from XL to IR for titration - Follow VS (5) Hyperlipidemia: Code(s): E78.5 - Hyperlipidemia, unspecified Status: Acute Assessment and Plan: - continue statin. (6) Mechanical heart valve present: Code(s): Z95.2 - Presence of prosthetic heart valve Status: Acute Assessment and Plan: Audible mechanical heart valve. INR subtherapeutic for several days, 1.5, 1.4, 1 today. Goal INR 2.5-3 --Start a heparin drip with a bolus --Follow CBC since trending down but may be dilutional. Stable overnight --Warfarin 8mg<9mg daily --Daily INR (7) Shortness of breath: Code(s): R06.02 - Shortness of breath Status: Acute Assessment and Plan: Mildly tachypneic. Not obviously overloaded on exam, may be 2/2 --Starting heparin drip, if not resolved consider a CT r/o PE, but is on warfarin chronically for mechanical heart valve --Treatment of pneumonia and heart failure, rate control afib (8) Anemia: Code(s): D64.9 - Anemia, unspecified Status: Acute Assessment and Plan: Blood count trending down since admission but may be dilutional 14.2>11.1 --check Iron panel, ferritin, b12, LDH. Follow CBC --If stable (9) Heart failure, diastolic, acute on chronic: Code(s): I50.33 - Acute on chronic diastolic (congestive) heart failure Status: Acute Assessment and Plan: 08/24/23 Echo: TDS. EF 45%, biatrial enlargement, suspect (YADIRA 1.4 cm2), mod MR, mild-mod TR. Stopped fluids NT-proBNP 10,000 Resume lasix, 20mg IV daily & increase as able TTE (10) Pneumonia: Code(s): J18.9 - Pneumonia, unspecified organism Status: Acute Plan Hospital associated. Chest x-ray showed possible RLL pneumonia. Has crackles on exam. Intermittent fevers. On room air --Start Unasyn, change to augmentin if improving --If new oxygen requirements, broaden to Cefepime/Vanc/Flagyl Time Spent With Patient Time: 58 minutes Subjective Date/time seen: 03/11/24 11:51 Interval history: Rate controlled today. Fevers yesterday but afebrile this morning Blood cultures x2 pending--no growth Review of Systems Review of Systems: All systems reviewed & are unremarkable except as noted in HPI and below Exam Narrative: General: Fair appearing, no acute distress. HEENT: Atraumatic, PERRL, moist mucus membrane, anicteric. NECK: No JVD. HEART: irregular, NL S1/S2, no murmurs. mechanical valve/click LUNGS: RLL crackles Abdomen: Soft, non-tender, non-distended, +ve bowel sounds X4 quadrants. Extremities: Acyanotic, no edema. Skin: Warm and dry. Neuro: No focal neuro deficits noted. Psych: Pleasant and co-operative. A/O x4. Objective Data Vital Signs Vital Signs: Vital Signs - 24 hr 03/10/24 12:00 03/10/24 12:00 03/10/24 12:48 Temperature 100.2 F H Pulse Rate 93 93 92 Respiratory Rate 18 Blood Pressure 141/70 H Pulse Oximetry 95 Oxygen Delivery 03/10/24 15:50 03/10/24 16:00 03/10/24 18:21 Temperature 99.8 F H Pulse Rate 91 91 91 Respiratory Rate 18 Blood Pressure 139/78 Pulse Oximetry 97 Oxygen Delivery 03/10/24 20:00 03/10/24 20:00 03/10/24 23:55 Temperature 98.3 F 101.3 F H Pulse Rate 91 107 H 104 H Respiratory Rate 20 22 H Blood Pressure 131/83 138/70 Pulse Oximetry 93 92 Oxygen Delivery 03/11/24 00:00 03/11/24 00:10 03/11/24 01:00 Temperature 100.1 F H 99.5 F Pulse Rate 94 Respiratory Rate Blood Pressure Pulse Oximetry Oxygen Delivery 03/11/24 01:15 03/11/24 04:00 03/11/24 04:00 Temperature 97.6 F Pulse Rate 89 80 88 Respiratory Rate 24 H Blood Pressure 136/77 Pulse Oximetry 93 Oxygen Delivery 03/11/24 06:21 03/11/24 08:03 03/11/24 09:27 Temperature Pulse Rate 68 89 Respiratory Rate Blood Pressure Pulse Oximetry Oxygen Delivery Room Air 03/11/24 10:27 Temperature Pulse Rate Respiratory Rate Blood Pressure Pulse Oximetry Oxygen Delivery Room Air Intake/Output Intake/Output: Intake & Output 03/08/24 03/09/24 03/10/24 03/11/24 23:59 23:59 23:59 23:59 Intake Total 1700 2750 1615.8 1058.7 Output Total 1300 1100 900 550 Balance 400 1650 715.8 508.7 Meds/Results Medications: Active Medications Generic Name Dose Route Start Last Admin Trade Name Freq PRN Reason Stop Dose Admin Acetaminophen 1,000 mg 03/10/24 10:04 03/11/24 00:10 Acetaminophen 500 Mg Tablet PO 1,000 mg Q6H PRN Administration Mild Pain (1-3) or Fever Hydrocodone Bitart/Acetaminophen 1 tab 03/08/24 17:21 03/10/24 10:55 Hydrocodone/Acetaminophen (*Crx) 5-325 Mg Tablet PO 1 tab Q6H PRN Administration Pain Rated 4-6 Albuterol 2 puff 03/08/24 17:21 Albuterol Sulfate (*Sp) Aerosol 1 Puff INHALATION QID PRN Shortness Of Breath Alprazolam 0.25 mg 03/08/24 17:21 03/09/24 20:42 Alprazolam (*Crx) 0.25 Mg Tablet PO 0.25 mg HS PRN Administration Anxiety Benzocaine 1 lozenge 03/10/24 18:17 Benzocaine/Menthol (*Bkc) 18 Ea Lozenge PO PRN PRN Sore Throat Cyanocobalamin 1,000 mcg 03/09/24 09:00 03/11/24 10:04 Cyanocobalamin 1,000 Mcg Tablet PO 1,000 mcg DAILY IAN Administration Diclofenac Sodium 1 applic 03/10/24 10:04 03/10/24 12:24 Diclofenac Sodium 1% 100 Gm Gel (*Bkc) TOPICAL 1 applic QID PRN Administration joint pain Gabapentin 300 mg 03/08/24 21:00 03/11/24 10:04 Gabapentin 300 Mg Capsule PO 300 mg Q12HR IAN Administration Heparin Sodium (Porcine) 5,500 units 03/10/24 07:37 03/10/24 08:12 Heparin Sodium 5,000 Units/Ml Vial IV PUSH 5,500 units PRN PRN Administration aPTT less than 55 seconds Heparin Sodium (Porcine) 2,500 units 03/10/24 07:37 Heparin Sodium 5,000 Units/Ml Vial IV PUSH PRN PRN aPTT 55 - 70 seconds Hydromorphone HCl 0.2 mg 03/10/24 12:48 Hydromorphone Hcl Inj (*Crx) 1 Mg/Ml Syr IV PUSH Q6H PRN Pain Rated 7-10 Heparin Sodium/Dextrose 25,000 units in 250 mls @ 0 mls/hr 03/10/24 07:40 03/11/24 00:35 Heparin Sodium/D5w 100 Units/Ml IV CONT 0 units/hr .Q0M IAN 0 mls/hr Titration Protocol 0 UNITS/HR Ampicillin Sodium/Sulbactam Sodium 3 gm in 100 mls @ 200 mls/hr 03/11/24 11:25 Unasyn 3 Gm/Ns 100 Ml IVPB Q6HR IAN Methimazole 5 mg 03/09/24 09:00 03/11/24 10:04 Methimazole 5 Mg Tab PO 5 mg DAILY IAN Administration Metoprolol Tartrate 12.5 mg 03/10/24 07:35 03/11/24 06:21 Metoprolol Tartrate 12.5 Mg Tablet PO 12.5 mg Q6HR IAN Administration Cinacalcet 15 Mg 0 each 03/10/24 09:00 03/10/24 09:20 Tablet PO 04/09/24 08:59 15 each DAILY IAN Administration Pantoprazole Sodium 40 mg 03/09/24 09:00 03/11/24 10:05 Pantoprazole 40 Mg Tablet PO 40 mg QAM IAN Administration Perflutren Lipid Microsphere 0 ml 03/10/24 07:39 Perflutren Lipid Microspheres 1.5 Ml Vial Diluted To 10 Ml Total Volume IV PUSH 03/13/24 07:39 ONCE PRN adequate visualization Protocol Potassium Chloride 10 meq 03/08/24 21:00 03/10/24 20:56 Potassium Chloride 10 Meq Er Tablet PO 10 meq HS IAN Administration Simvastatin 10 mg 03/08/24 21:00 03/10/24 20:56 Simvastatin 10 Mg Tablet PO 10 mg HS IAN Administration Venlafaxine HCl 150 mg 03/09/24 09:00 03/11/24 10:04 Venlafaxine Hcl Xr 75 Mg Cap.Er.24h PO 150 mg DAILY IAN Administration Vitamin D 1,000 units 03/09/24 09:00 03/11/24 10:05 Cholecalciferol 1,000 Units Tablet PO 1,000 units DAILY IAN Administration Warfarin Sodium 8 mg 03/09/24 17:00 03/10/24 18:21 Warfarin (*Pbkc) 4 Mg Tablet PO 8 mg DAILY@1700 IAN Administration Radiology Results: ITS Impressions Chest X-Ray 03/10/24 15:01 IMPRESSION: Persisting cardiomegaly with possible left lower lobe infiltrate, as detailed above. Labs Labs: Laboratory Results - last 24 hr 03/10/24 03/10/24 03/10/24 12:00 12:53 14:04 WBC 5.8 RBC 3.26 L Hgb 10.7 L Hct 33.4 L MCV 102.5 H MCH 32.8 MCHC 32.0 RDW 13.1 Plt Count 155 MPV 13.2 H Immature Gran % (Auto) 0.3 Neut % (Auto) 76.0 H Lymph % (Auto) 8.7 L Hendricks % (Auto) 12.0 H Eos % (Auto) 2.1 Baso % (Auto) 0.9 Lymph # (Auto) 0.50 L Hendricks # (Auto) 0.7 H Eos # (Auto) 0.1 Baso # (Auto) 0.1 Abs Immat Gran (auto) 0.02 Absolute Neuts (auto) 4.4 Absolute Nucleated RBC 0.000 Nucleated RBC % 0.0 % Immature Plt Fraction 12.5 H PT INR APTT Sodium 132 L Potassium 4.1 Chloride 105 Carbon Dioxide 28 Anion Gap -1 L BUN 13 Creatinine 1.00 Estim Creat Clear Calc 42 Estimated GFR 53 L Glucose 95 POC Capillary Glucose Calcium 9.7 Iron 22 L TIBC 290 % Saturation 8 L Ferritin 41.00 Total Bilirubin 0.6 AST 27 ALT 12 Alkaline Phosphatase 48 Lactate Dehydrogenase 245 Troponin I 0.046 H* NT-Pro-B Natriuret Pep 09753 H Total Protein 6.0 L Albumin 3.3 L Urine Color Yellow Urine Appearance Clear Urine pH 6.5 Ur Specific Webb 1.006 Urine Protein Negative Urine Glucose (UA) Negative Urine Ketones Negative Ur Blood (Man) Negative Urine Nitrate Negative Urine Bilirubin Negative Urine Urobilinogen 0.2 Leukocyte Esterase Rfl Negative Influenza A (RT-PCR) Negative Influenza B (RT-PCR) Negative RSV (RT-PCR) Negative SARS-CoV-2 RNA (RT-PCR) Negative 03/10/24 03/10/24 03/10/24 15:26 16:33 23:50 WBC RBC Hgb Hct MCV MCH MCHC RDW Plt Count MPV Immature Gran % (Auto) Neut % (Auto) Lymph % (Auto) Hendricks % (Auto) Eos % (Auto) Baso % (Auto) Lymph # (Auto) Hendricks # (Auto) Eos # (Auto) Baso # (Auto) Abs Immat Gran (auto) Absolute Neuts (auto) Absolute Nucleated RBC Nucleated RBC % % Immature Plt Fraction PT INR APTT > 200.0 H* > 200.0 H* Sodium Potassium Chloride Carbon Dioxide Anion Gap BUN Creatinine Estim Creat Clear Calc Estimated GFR Glucose POC Capillary Glucose 103 Calcium Iron TIBC % Saturation Ferritin Total Bilirubin AST ALT Alkaline Phosphatase Lactate Dehydrogenase Troponin I NT-Pro-B Natriuret Pep Total Protein Albumin Urine Color Urine Appearance Urine pH Ur Specific Webb Urine Protein Urine Glucose (UA) Urine Ketones Ur Blood (Man) Urine Nitrate Urine Bilirubin Urine Urobilinogen Leukocyte Esterase Rfl Influenza A (RT-PCR) Influenza B (RT-PCR) RSV (RT-PCR) SARS-CoV-2 RNA (RT-PCR) 03/11/24 03/11/24 06:43 07:15 WBC 4.4 L RBC 3.29 L Hgb 10.8 L Hct 34.6 L MCV 105.2 H MCH 32.8 MCHC 31.2 L RDW 13.2 Plt Count 131 L MPV 13.4 H Immature Gran % (Auto) 0.5 Neut % (Auto) 63.6 Lymph % (Auto) 17.6 L Hendricks % (Auto) 15.8 H Eos % (Auto) 1.4 Baso % (Auto) 1.1 Lymph # (Auto) 0.77 L Hendricks # (Auto) 0.7 H Eos # (Auto) 0.1 Baso # (Auto) 0.1 Abs Immat Gran (auto) 0.02 Absolute Neuts (auto) 2.8 Absolute Nucleated RBC 0.000 Nucleated RBC % 0.0 % Immature Plt Fraction 14.7 H PT 20.4 H D INR 1.7 APTT 45.9 H Sodium Potassium Chloride Carbon Dioxide Anion Gap BUN Creatinine Estim Creat Clear Calc Estimated GFR Glucose POC Capillary Glucose Calcium Iron TIBC % Saturation Ferritin Total Bilirubin AST ALT Alkaline Phosphatase Lactate Dehydrogenase Troponin I NT-Pro-B Natriuret Pep Total Protein Albumin Urine Color Urine Appearance Urine pH Ur Specific Webb Urine Protein Urine Glucose (UA) Urine Ketones Ur Blood (Man) Urine Nitrate Urine Bilirubin Urine Urobilinogen Leukocyte Esterase Rfl Influenza A (RT-PCR) Influenza B (RT-PCR) RSV (RT-PCR) SARS-CoV-2 RNA (RT-PCR) Quality VTE Prophylaxis VTE prophylaxis: pharmacologic ordered Hospitalist MIPS Advance Care Plan I have confirmed that the patient's Advanced Care Plan is present, code status is documented, or surrogate decision maker is listed in patient medical record.: Yes Medication Reconciliation I have utilized all available resources to obtain, update and review the patients current medications (includes all prescriptions, OTC, herbals, cannabis, and nutritional supplements).: Yes
[2024-03-11] MEDS: BENZOCAINE/MENTHOL (*BKC) 18 EA LOZENGE 1 LOZENGE PO (12:36)
[2024-03-11] MEDS: AMPICILLIN SULB 3 GM/NS 100 ML 3 GM/100 ML VIAL IVPB ×2 (12:36→18:00)
[2024-03-11] MEDS: HEPARIN SODIUM 5,000 UNITS/ML VIAL 2500 UNITS IV PUSH (12:42)
[2024-03-11] MEDS: PERFLUTREN LIPID MICROSPHERES 1.5 ML VIAL DILUTED TO 10 ML TOTAL VOLUME IV PUSH (13:30)
[2024-03-11] MEDS: HYDROcodone/acetaminophen (*CRX) 5-325 MG TABLET 1 TAB PO ×2 (13:34→21:40)
--- NOTE | 2024-03-11 13:51 | IVDEFINITY ---
Prior to administration of IV Definity the patient was educated on the risks and benefits of the imaging enhancing agent including potential adverse side effects. The patient verbalized understanding. Allergies were verified. No exclusion criteria were identified and at least one of the following inclusion criteria were met: 1) physician request, 2) patient technically difficult to image (per the [place] [employer] guidelines of two or more segments not discernable within the apical view), or 3) questionable left ventricular function. ?
--- NOTE | 2024-03-11 16:01 | PM.CNCAR ---
Assessment and Plan Assessment and plan (1) Atrial fibrillation: Code(s): I48.91 - Unspecified atrial fibrillation Status: Acute Assessment and Plan: Patient is in controlled atrial fibrillation she had noted palpitations prior to admission currently feels back to her usual state of health has been maintained on Coumadin managed by her PCP for her mechanical aortic valve as well as coverage for AFib (2) H/O mechanical aortic valve replacement: Code(s): Z95.2 - Presence of prosthetic heart valve Status: Acute Assessment and Plan: Patient has a known mechanical aortic valve prosthesis [facility] mechanical aortic valve replacement (2003) [facility] valve Her INR subtherapeutic Mechanical heart sounds are noted on exam She needs higher doses of Coumadin Have to be careful with the Coumadin as the INR can be very volatile [place] the setting of antibiotics (3) Hypertension: Code(s): I10 - Essential (primary) hypertension Status: Acute Assessment and Plan: Follow blood pressure avoid hypotension continue with home medications okay to adjust the metoprolol short-acting to get better rate control (4) Congestive heart failure: Code(s): I50.9 - Heart failure, unspecified Status: Acute Assessment and Plan: She has mild reduction of her left ventricular ejection fraction noted on prior echo noted to be roughly 45% hard to say whether or not she is actually having heart failure exacerbation of this is a URI superimposed on prior history of COPD currently on antibiotics per primary service It is probably best continue her on her IV diuretic dosing to avoid her having decompensation of CHF while here Plan Patient appears to be back to her usual state of health Subtherapeutic INR needs increased loading of Coumadin She will need anticoagulation for the mechanical aortic valve I agree with IV heparin for now and then transition to Coumadin Will need to follow her INR carefully as she is getting antibiotics Agree with utilizing short-acting beta-lexy for better rate control Okay to transition to sustained release metoprolol after she has stabilized May need respiratory treatments which could potentially trigger rapid ventricular response History of Present Illness History of Present Illness Consult date/time: 03/11/24 16:01 Reason For Visit: Dehydration Narrative: 78 yr old female presented with palpitations tachycardia history of mechanical AVR in 2009 at [place] on Coumadin managed by PCP, systolic dysfunction, PAF, established with prior LBBB on prior EKGs, DM, hypertension, dyslipidemia, mild PAD. Currently feels some shortness of breath may have an upper respiratory infection patient apparently may have been dehydrated on presentation she is currently getting antibiotics she is also on IV heparin she has had multiple sub therapeutic INRs noted in the lateral recess record she will need to be loaded with Coumadin to get her INR up to roughly 2.5 for mechanical AVR. Currently she denies shortness of breath aside from her current URI denies palpitations lightheadedness dizziness feels overall back to her usual state of health. Patient has seen Dr. Farrell as an outpatient before and can follow with him upon discharge Review of Systems Cardiovascular: Comments: Experience palpitations on presentation Respiratory: Comments: Had some shortness of breath related to upper respiratory infection [facility] Past Medical History Medical History Irritable bowel syndrome Gallbladder disorder Arthritis Vitamin B12 deficiency Atrial fibrillation with slow ventricular response Chronic kidney disease, stage 3b Chronic kidney disease Baseline creatinine is around 1.50. Restless leg syndrome Congestive heart failure Echocardiogram in March 2021 showed normal FVC size, moderate LVH, borderline LV systolic function with an EF of 50 to 55%, and grade 1 diastolic dysfunction. Depression with anxiety Degenerative joint disease Burst fracture of thoracic vertebra Kidney stone Obstructive sleep apnea on CPAP Diverticulitis Hypertension Type 2 diabetes mellitus Chronic obstructive pulmonary disease Patient had a pulmonary function test on 02/24/2020 which was suggestive of COPD. Chronic anticoagulation Paroxysmal atrial fibrillation On amiodarone therapy Depression Hyperlipidemia Herniated disc Surgical History Surgical History History of right knee surgery Ligamentous repair. History of bilateral cataract extraction History of mechanical aortic valve replacement (2003) [facility] valve. History of ankle surgery ORIF left ankle fracture. History of hysterectomy Family History Family History Mother Family history of cardiovascular disease Family history of arthritis CHF (congestive heart failure) Depression Family history of coronary artery disease Father Family history of cardiovascular disease Diabetes mellitus Family history of arthritis Acute myocardial infarction Family history of diabetes mellitus in first degree relative Sibling , cancer Family history of arthritis Malignant neoplasm of prostate Sibling Family history of arthritis Malignant neoplasm of prostate Social History Social History Social History: The patient is and lives in her own home with her small dog. 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 No alcohol or illicit drug use. Surrogate decision maker: Shannon Vigil, sister. Code status: Full code. Smoking status: Never smoker Second hand tobacco smoke exposure: No Alcohol intake: never Substance use: never Substance use type: does not use Do You Feel Safe in your Home?: Yes Lack of Transportation: YES Lack of Food: Never True Current Housing: I Have Housing Concerned About Future Housing: No Difficulty Paying Gas/Electric Bills: No Difficulty Paying for Meds: No Currently Unemployed: No Education: Grade School Difficulty w/ Childcare or Family Care: No Living arrangements: alone Occupation/Education: retired Additional gender identity comments: [employer] work Spiritual care concerns: No Agree to blood products: Yes Meds Home Medications and Allergies Home Medications ?Medication ?Instructions ?Recorded ?Confirmed ?Type albuterol sulfate 90 mcg/actuation 2 puff inhalation QID PRN 01/09/19 03/08/24 History aerosol inhaler Shortness Of Breath gabapentin 300 mg capsule 300 mg PO Q12H 01/09/19 03/08/24 History venlafaxine 150 mg 150 mg PO DAILY 01/09/19 03/08/24 History capsule,extended release 24 hr furosemide 20 mg tablet 20 mg PO DAILY 03/18/22 03/08/24 History potassium chloride 10 mEq 10 meq PO HS 03/18/22 03/08/24 History tablet,extended release cholecalciferol (vitamin D3) 1,000 units PO DAILY 08/23/23 03/08/24 History simvastatin 10 mg PO HS 08/23/23 03/08/24 History cyanocobalamin (vitamin B-12) 1,000 mcg PO DAILY #30 caps 08/26/23 03/08/24 Rx 1,000 mcg capsule metoprolol succinate 25 mg 12.5 mg (1/2 x 25 mg) PO DAILY #30 08/26/23 03/08/24 Rx tablet,extended release 24 hr tabs alprazolam 0.5 mg tablet 0.25 mg PO HS PRN Anxiety 11/01/23 03/08/24 History hydrocodone 5 mg-acetaminophen 325 1 - 2 tablet PO Q6H PRN Pain 11/01/23 03/08/24 History mg tablet omeprazole 40 mg capsule,delayed 40 mg PO DAILY 11/01/23 03/08/24 History release semaglutide 0.25 mg or 0.5 mg (2 0.5 mg subcut WEEKLY 11/12/23 03/08/24 History mg/3 mL) subcutaneous pen injector (Qinec) cinacalcet 30 mg tablet 15 mg PO DAILY 12/13/23 03/08/24 History methimazole 5 mg tablet 5 mg PO DAILY 12/13/23 03/08/24 History warfarin 6 mg tablet 6 mg PO DAILY 03/08/24 03/08/24 History Allergies Allergy/AdvReac Type Severity Reaction Status Date / Time adhesive tape Allergy Intermediate Blister Verified 03/07/24 15:30 cortisone Allergy Intermediate Rash Verified 03/07/24 15:30 bacitracin Allergy Mild Rash Verified 03/07/24 15:30 neomycin Allergy Mild Rash Verified 03/07/24 15:30 polymyxin B Allergy Mild Rash Verified 03/07/24 15:30 Vital Signs Vital Signs - 24 hr 03/10/24 18:21 03/10/24 20:00 03/10/24 20:00 Temperature 36.8 C Pulse Rate 91 91 107 H Respiratory Rate 20 Blood Pressure 131/83 Pulse Oximetry 93 Oxygen Delivery 03/10/24 23:55 03/11/24 00:00 03/11/24 00:10 Temperature 38.5 C H 37.8 C H Pulse Rate 104 H 94 Respiratory Rate 22 H Blood Pressure 138/70 Pulse Oximetry 92 Oxygen Delivery 03/11/24 01:00 03/11/24 01:15 03/11/24 04:00 Temperature 37.5 C Pulse Rate 89 80 Respiratory Rate Blood Pressure Pulse Oximetry Oxygen Delivery 03/11/24 04:00 03/11/24 06:21 03/11/24 08:03 Temperature 36.4 C Pulse Rate 88 68 89 Respiratory Rate 24 H Blood Pressure 136/77 Pulse Oximetry 93 Oxygen Delivery 03/11/24 09:27 03/11/24 10:27 03/11/24 12:36 Temperature Pulse Rate 92 Respiratory Rate Blood Pressure Pulse Oximetry Oxygen Delivery Room Air Room Air Exam Neck: Other: No JVD noted transmitted aortic valve sounds auscultated in carotids Resp: Other: Diminished breath sounds bilaterally no rhonchi or wheezes noted on exam Cardio: Other: [place] mechanical heart sounds noted Irregularly irregular with controlled atrial fibrillation on electronic device monitor Extrem: Other: No edema identified bilaterally the patient states that her legs look pretty much for her routine Results Labs and Meds 03/11/24 06:43 03/10/24 14:04 Lab results: Coagulation 03/10/24 03/10/24 03/11/24 Range/Units 15:26 23:50 07:15 PT 20.4 H D (11.1-14.7) Seconds APTT > 200.0 H* > 200.0 H* 45.9 H (22.3-36.8) Seconds CBC 03/11/24 Range/Units 06:43 WBC 4.4 L (4.5-10.0) K/mm3 RBC 3.29 L (4.2-5.4) M/mm3 Hgb 10.8 L (12.0-15.0) g/dL Hct 34.6 L (37.0-47.0) % Plt Count 131 L (150-375) k/mm3 Lymph # (Auto) 0.77 L (0.9-3.2) K/mm3 [place] # (Auto) 0.7 H (0.1-0.6) K/mm3 Eos # (Auto) 0.1 (0-0.3) K/mm3 Baso # (Auto) 0.1 (0.0-0.1) K/mm3 Intake and Output 03/11/24 03/11/24 03/11/24 07:59 15:59 23:59 Intake Total 1058.7 23.7 Output Total 550 Balance 508.7 23.7 Intake: IV 58.7 23.7 Heparin Sod/D5w 100 Units/ml 25 58.7 23.7 ,000 units In 250 ml @ 0 UNITS/ HR IV CONT .Q0M IAN Rx#: [id number] Oral 1000 Output: Catheter Urine 550 External/Condom 550 Other: # Incontinent Voids 1 Imaging and Cardiology Echo: report reviewed (Summary 1. Complete two-dimensional, color flow and Doppler transthoracic echocardiogram is performed. 2. Technically somewhat challenging exam. 3. Mild left ventricular enlargement with mild global systolic dysfunction ejection fraction visually estimated about 45%. 4. Biatrial dilation lef) EKG Interpretation EKG shows: atrial fibrillation (Left bundle branch block pattern)
[2024-03-11 16:56] LABS: Glucose Point of Care 119 mg/dl (65-105)
[2024-03-11] MEDS: WARFARIN (*PBKC) 3 MG TABLET 9 MG PO (17:55)
[2024-03-11 17:59] LABS: Partial Thromboplastin Time > 200.0 Seconds (22.3-36.8)
[2024-03-11] MEDS: ALPRAZolam (*CRX) 0.25 MG TABLET PO (21:40)
[2024-03-11] MEDS: POTASSIUM CHLORIDE 10 MEQ ER TABLET PO (21:40)
[2024-03-11] MEDS: SIMVASTATIN 10 MG TABLET PO (21:41)
[2024-03-12] VITALS (11 sets, daily range): BP systolic 104–140; BP diastolic 60–88; PULSE 62–105; RESP 14–20; TEMP 36.7–37.2; O2SAT 92–100
[2024-03-12] MEDS: METOPROLOL TARTRATE 12.5 MG TABLET PO ×4 (00:10→17:38)
[2024-03-12] MEDS: AMPICILLIN SULB 3 GM/NS 100 ML 3 GM/100 ML VIAL IVPB ×4 (00:10→17:38)
[2024-03-12] MEDS: guaiFENesin/DEXTROMETHORPHAN 10 ML UDC PO ×4 (00:10→21:41)
[2024-03-12] MEDS: HEPARIN SOD/D5W 100 UNITS/ML 25,000 UNITS/250 ML BAG 7 UNITS IV CONT (01:14)
[2024-03-12 02:07] LABS: Partial Thromboplastin Time 141.6 Seconds (22.3-36.8)
[2024-03-12] MEDS: HYDROcodone/acetaminophen (*CRX) 5-325 MG TABLET 1 TAB PO ×2 (06:01→17:16)
[2024-03-12 07:31] LABS: Immature Reticulocyte Fraction 10.8 % (3.0-15.9); Reticulocytes Absolute 0.05 10^6/uL (0.02-0.10)
[2024-03-12 07:50] LABS: Alanine Aminotransferase 13 U/L (6-35); Alkaline Phosphatase 47 U/L (38-126); Anion Gap -2 mmol/L (4-12); Aspartate Amino Transferase 28 U/L (14-36); Bilirubin,Total 0.4 mg/dL (0.2-1.3); Blood Urea Nitrogen 14 mg/dL (7-17); Calcium 9.3 mg/dL (8.4-10.2); Carbon Dioxide 29 mmol/L (22-30); Chloride 109 mmol/L (98-107); Estimated CRCL calculation 39 ml/min; Estimated Glomerular Filt Rate 48; Glucose 93 mg/dL (65-110); Potassium 3.8 mmol/L (3.4-5.0); Sodium 136 mmol/L (137-145)
[2024-03-12 08:02] LABS: Iron 13 ug/dL (37-170)
[2024-03-12 08:04] LABS: INR 2.1; Prothrombin Time 23.9 Seconds (11.1-14.7)
[2024-03-12] MEDS: CYANOCOBALAMIN 1,000 MCG TABLET 1000 MCG PO (08:06)
[2024-03-12] MEDS: methiMAzole 5 MG TAB PO (08:06)
[2024-03-12] MEDS: FUROSEMIDE INJ 40 MG/4 ML VIAL 20 MG IV PUSH (08:07)
[2024-03-12] MEDS: VENLAFAXINE HCL XR 75 MG CAP.ER.24H 150 MG PO (08:07)
[2024-03-12] MEDS: CHOLECALCIFEROL 1,000 UNITS TABLET 1000 UNITS PO (08:07)
[2024-03-12] MEDS: GABAPENTIN 300 MG CAPSULE PO ×2 (08:07→21:42)
[2024-03-12] MEDS: PANTOPRAZOLE 40 MG TABLET PO (08:07)
[2024-03-12] MEDS: CINACALCET PO (08:10)
[2024-03-12 08:11] LABS: Percent Iron Saturation 5 % (20-50); TOTAL IRON BINDING CAPACITY 267 ug/dL (261-462)
[2024-03-12 08:40] LABS: Glucose Point of Care 76 mg/dl (65-105)
[2024-03-12 08:46] LABS: INR 2.2; Prothrombin Time 24.8 Seconds (11.1-14.7)
[2024-03-12 08:49] LABS: Partial Thromboplastin Time 145.8 Seconds (22.3-36.8)
[2024-03-12 12:04] LABS: Glucose Point of Care 86 mg/dl (65-105)
--- NOTE | 2024-03-12 14:45 | PM.PNCARD ---
Progress Note: A&P Assessment and Plan (1) Palpitations: Code(s): R00.2 - Palpitations Status: Acute Assessment and Plan: - Likely due to PAF with RVR. - Better after hydration and resuming home meds. -no new palpitations and rate is controlled on tele monitor continue with current bb dosing as she is tolerating meds and no new palps (2) Paroxysmal A-fib: Code(s): I48.0 - Paroxysmal atrial fibrillation Status: Acute Assessment and Plan: - Resting HR 70s-90s, 100s with activity. Rate controlled with increased dose of metoprolol - Change Metoprolol ER 25mg daily to metoprolol tartrate 12.5mg q6 and titrate. 5mg IV metoprolol --INR goal as noted for mechanical heart valve --Cardiology consulted, [facility] will see her (3) HTN (hypertension): Qualifiers: Hypertension type: primary hypertension Qualified Code(s): I10 - Essential (primary) hypertension Code(s): I10 - Essential (primary) hypertension Status: Acute Assessment and Plan: - Appears well controlled. - Continue metoprolol, changed from XL to IR for titration - Follow VS (4) Hyperlipidemia: Qualifiers: Hyperlipidemia type: mixed hyperlipidemia Qualified Code(s): E78.2 - Mixed hyperlipidemia Code(s): E78.5 - Hyperlipidemia, unspecified Status: Acute Assessment and Plan: - continue statin on zocor (5) Mechanical heart valve present: Code(s): Z95.2 - Presence of prosthetic heart valve Status: Acute Assessment and Plan: Audible mechanical heart valve. INR subtherapeutic for several days, 1.5, 1.4, 1 today. Goal INR 2.5-3 --Start a heparin drip with a bolus --Follow CBC since trending down but may be dilutional. Stable overnight --Warfarin 8mg<9mg daily --Daily INR which has improved to 2.1 - Echo reviewed from this admission no significant change in the the LVfxn compared to prior however the elevated bnp/trop can be related to the valve dysfunction and reduced lv fxn (6) Shortness of breath: Code(s): R06.02 - Shortness of breath Status: Acute Assessment and Plan: Mildly sob with sore throat and cough. Not obviously overloaded on exam, may be 2/2 --continue with heparin drip, if not resolved consider a CT r/o PE may be more useful for eval for consolidaiton/pna pt is also on warfarin chronically for mechanical heart valve (doubt she would have this as remains on OAC for valve/afib --Treatment of pneumonia and heart failure, rate control afib (7) Heart failure, diastolic, acute on chronic: Code(s): I50.33 - Acute on chronic diastolic (congestive) heart failure Status: Acute Assessment and Plan: 08/24/23 Echo: TDS. EF 45%, biatrial enlargement, suspect (YADIRA 1.4 cm2), mod MR, mild-mod TR. new echo from this admission is not much different compared to the echo noted above Stopped fluids NT-proBNP 10,000 Resume lasix, 20mg IV daily & increase as able TTE (8) Pneumonia: Code(s): J18.9 - Pneumonia, unspecified organism Status: Acute Assessment and Plan: antibiotics per hospitalist pt notes soreness in throat and cough suspect typical URI symptoms Plan Abx per hospitalist continue with coumadin for the AVR/AFib follow INR since getting abx and can have significant fluctuation with abx and coumadin continue with tele monitor suspect her pna is progressing may need nebulizer for improving breathing rather than mdi/spacer chf combined systolic / diastolic with concommitant valvular disease afib rate better controlled on bb Subjective Date/time seen: 03/12/24 14:45 Interval history: Says she feels worse with breathing and gets cough and chestpain when coughing bringing up various colors of mucous Dosent feel palpitaitons Exam Const: General: no acute distress Other: sitting up in chair complaining of coughing and soreness in throat Resp: Other: decreased breath sounds bilaterally with no wheezing noted Cardio: Other: regular rate and rhythm tele shows regularized rhythm unable to verify if sinus or regularized afib mechanical valve sound noted Extrem: Other: trace edema bilaterally Objective Data Vital Signs Vital Signs: Vital Signs - 24 hr 03/11/24 16:00 03/11/24 16:03 03/11/24 20:00 Temperature 37.0 C 36.9 C Pulse Rate 79 93 89 Respiratory Rate 20 20 Blood Pressure 116/69 115/82 Pulse Oximetry 93 99 Oxygen Delivery 03/11/24 20:02 03/12/24 00:00 03/12/24 00:00 Temperature 36.9 C Pulse Rate 90 93 105 H Respiratory Rate 20 Blood Pressure 127/76 Pulse Oximetry 94 Oxygen Delivery 03/12/24 02:57 03/12/24 04:00 03/12/24 08:00 Temperature 36.9 C 36.8 C Pulse Rate 91 91 62 Respiratory Rate 18 16 Blood Pressure 140/88 131/85 Pulse Oximetry 97 96 Oxygen Delivery 03/12/24 08:00 03/12/24 08:02 03/12/24 12:00 Temperature 36.7 C Pulse Rate 80 93 Respiratory Rate 16 Blood Pressure 117/78 Pulse Oximetry 96 Oxygen Delivery Room Air 03/12/24 12:28 Temperature Pulse Rate 90 Respiratory Rate Blood Pressure Pulse Oximetry Oxygen Delivery Intake/Output Intake/Output: Intake & Output 03/09/24 03/10/24 03/11/24 03/12/24 23:59 23:59 23:59 23:59 Intake Total 2750 1615.8 2394.2 929.4 Output Total 1100 900 700 450 Balance 1650 715.8 1694.2 479.4 Meds/Results Medications: Active Medications Generic Name Dose Route Start Last Admin Trade Name Freq PRN Reason Stop Dose Admin Acetaminophen 1,000 mg 03/10/24 10:04 03/11/24 00:10 Acetaminophen 500 Mg Tablet PO 1,000 mg Q6H PRN Administration Mild Pain (1-3) or Fever Hydrocodone Bitart/Acetaminophen 1 tab 03/08/24 17:21 03/12/24 06:01 Hydrocodone/Acetaminophen (*Crx) 5-325 Mg Tablet PO 1 tab Q6H PRN Administration Pain Rated 4-6 Albuterol 2 puff 03/08/24 17:21 Albuterol Sulfate (*Sp) Aerosol 1 Puff INHALATION QID PRN Shortness Of Breath Alprazolam 0.25 mg 03/08/24 17:21 03/11/24 21:40 Alprazolam (*Crx) 0.25 Mg Tablet PO 0.25 mg HS PRN Administration Anxiety Benzocaine 1 lozenge 03/10/24 18:17 03/11/24 12:36 Benzocaine/Menthol (*Bkc) 18 Ea Lozenge PO 1 lozenge PRN PRN Administration Sore Throat Cyanocobalamin 1,000 mcg 03/09/24 09:00 03/12/24 08:06 Cyanocobalamin 1,000 Mcg Tablet PO 1,000 mcg DAILY IAN Administration Diclofenac Sodium 1 applic 03/10/24 10:04 03/10/24 12:24 Diclofenac Sodium 1% 100 Gm Gel (*Bkc) TOPICAL 1 applic QID PRN Administration joint pain Furosemide 20 mg 03/12/24 09:00 03/12/24 08:07 Furosemide Inj 40 Mg/4 Ml Vial IV PUSH 20 mg DAILY IAN Administration Gabapentin 300 mg 03/08/24 21:00 03/12/24 08:07 Gabapentin 300 Mg Capsule PO 300 mg Q12HR IAN Administration Guaifenesin/Dextromethorphan 10 ml 03/11/24 23:14 03/12/24 12:11 Guaifenesin/Dextromethorphan 10 Ml Udc PO 10 ml Q4H PRN Administration Cough Heparin Sodium (Porcine) 5,500 units 03/10/24 07:37 03/10/24 08:12 Heparin Sodium 5,000 Units/Ml Vial IV PUSH 5,500 units PRN PRN Administration aPTT less than 55 seconds Heparin Sodium (Porcine) 2,500 units 03/10/24 07:37 03/11/24 12:42 Heparin Sodium 5,000 Units/Ml Vial IV PUSH 2,500 units PRN PRN Administration aPTT 55 - 70 seconds Hydromorphone HCl 0.2 mg 03/10/24 12:48 Hydromorphone Hcl Inj (*Crx) 1 Mg/Ml Syr IV PUSH Q6H PRN Pain Rated 7-10 Heparin Sodium/Dextrose 25,000 units in 250 mls @ 5 mls/hr 03/10/24 07:40 03/12/24 10:46 Heparin Sodium/D5w 100 Units/Ml IV CONT 500 units/hr .Q24H IAN 5 mls/hr Titration Protocol 500 UNITS/HR Ampicillin Sodium/Sulbactam Sodium 3 gm in 100 mls @ 200 mls/hr 03/11/24 11:25 03/12/24 12:04 Unasyn 3 Gm/Ns 100 Ml IVPB 200 mls/hr Q6HR IAN Administration Methimazole 5 mg 03/09/24 09:00 03/12/24 08:06 Methimazole 5 Mg Tab PO 5 mg DAILY IAN Administration Metoprolol Tartrate 12.5 mg 03/10/24 07:35 03/12/24 12:28 Metoprolol Tartrate 12.5 Mg Tablet PO 12.5 mg Q6HR IAN Administration Cinacalcet 15 Mg 0 each 03/10/24 09:00 03/12/24 08:10 Tablet PO 04/09/24 08:59 1 each DAILY IAN Administration Pantoprazole Sodium 40 mg 03/09/24 09:00 03/12/24 08:07 Pantoprazole 40 Mg Tablet PO 40 mg QAM IAN Administration Potassium Chloride 10 meq 03/08/24 21:00 03/11/24 21:40 Potassium Chloride 10 Meq Er Tablet PO 10 meq HS IAN Administration Simvastatin 10 mg 03/08/24 21:00 03/11/24 21:41 Simvastatin 10 Mg Tablet PO 10 mg HS IAN Administration Venlafaxine HCl 150 mg 03/09/24 09:00 03/12/24 08:07 Venlafaxine Hcl Xr 75 Mg Cap.Er.24h PO 150 mg DAILY IAN Administration Vitamin D 1,000 units 03/09/24 09:00 03/12/24 08:07 Cholecalciferol 1,000 Units Tablet PO 1,000 units DAILY IAN Administration Warfarin Sodium 9 mg 03/11/24 17:00 03/11/24 17:55 Warfarin (*Pbkc) 3 Mg Tablet PO 9 mg DAILY@1700 IAN Administration Radiology Results: ITS Impressions Chest X-Ray 03/10/24 15:01 IMPRESSION: Persisting cardiomegaly with possible left lower lobe infiltrate, as detailed above. Labs Labs: Laboratory Results - last 24 hr 03/11/24 03/11/24 03/12/24 16:53 16:59 01:35 Absolute Retic Percent Retic Immature Retic Fraction Retic Hgb Content PT INR APTT > 200.0 H* 141.6 H Sodium Potassium Chloride Carbon Dioxide Anion Gap BUN Creatinine Estim Creat Clear Calc Estimated GFR Glucose POC Capillary Glucose 119 H Calcium Iron TIBC % Saturation Ferritin Total Bilirubin Direct Bilirubin AST ALT Alkaline Phosphatase Total Protein Albumin Vitamin B12 03/12/24 03/12/24 03/12/24 06:43 06:43 06:43 Absolute Retic 0.05 Percent Retic 1.60 Immature Retic Fraction 10.8 Retic Hgb Content 34.0 PT 24.8 H D 23.9 H INR 2.2 2.1 APTT 145.8 H Sodium Potassium Chloride Carbon Dioxide Anion Gap BUN Creatinine Estim Creat Clear Calc Estimated GFR Glucose POC Capillary Glucose Calcium Iron TIBC % Saturation Ferritin Total Bilirubin Direct Bilirubin AST ALT Alkaline Phosphatase Total Protein Albumin Vitamin B12 03/12/24 03/12/24 03/12/24 06:43 08:04 11:53 Absolute Retic Percent Retic Immature Retic Fraction Retic Hgb Content PT INR APTT Cancelled Sodium 136 L Potassium 3.8 Chloride 109 H Carbon Dioxide 29 Anion Gap -2 L BUN 14 Creatinine 1.10 H Estim Creat Clear Calc 39 Estimated GFR 48 L Glucose 93 POC Capillary Glucose 76 86 Calcium 9.3 Iron 13 L TIBC 267 % Saturation 5 L Ferritin 79.10 Total Bilirubin 0.4 Direct Bilirubin 0.0 AST 28 ALT 13 Alkaline Phosphatase 47 Total Protein 6.0 L Albumin 3.0 L Vitamin B12 636.0 Imaging Radiologist's impression: Echo Summary 1. Normal LV size Mild Septal hypertrophy w/ mild-moderately reduced LV systolic function. 2. LVEF is about 35-40%. 3. Hx of prior AVR (mechanical) poorly visualized and has sclerotic valve. 4. Mildy enlarged RV size and preserved LV systolic fxn. 5. Mild AR. 6. Moderate MR and TR
--- NOTE | 2024-03-12 15:59 | PM.IMPN ---
Progress Note: A&P Assessment and Plan (1) Mechanical heart valve present: Code(s): Z95.2 - Presence of prosthetic heart valve Status: Acute Assessment and Plan: Audible mechanical heart valve. INR subtherapeutic for several days, 1.5, 1.4, 1 today. Next of Kin, PCP manages INR and warfarin doses for her. Next of Kin, Anshul coordinates with the office. The last 2 weeks before admission she was taking 6 mg thursday-, 5mg thursday, sat, sun. Generally has INR checks ever 2 weeks Goal INR 2.5-3.5 with her mechanical valve. Izzy reports 9mg daily is a higher dose than she has needed previously --Started a heparin drip with a bolus for subtherapeutic INR --Follow CBC since trending down but may be dilutional. Stable overnight --Warfarin 8mg<9mg daily --Daily INR, closer to goal --Coordinate INR checks & follow up plan with PCP's office, Dr. Sanjeev Rosenberg 03/07 1.5 03/08 Warfarin 6mg 03/09 1.4 Warfarin 6mg 03/10 1 Warfarin 8mg 03/11 1.7 Warfarin 9mg 03/12 2.1 & 2.2 Warfarin 9mg (lab said it was likely run twice for a precision check) (2) Palpitations: Code(s): R00.2 - Palpitations Status: Acute Assessment and Plan: - Likely due to PAF with RVR. - Better after hydration and resuming home meds. (3) Acute kidney injury: Code(s): N17.9 - Acute kidney failure, unspecified Status: Acute Assessment and Plan: Ddx pre-renal vs poor PO intake vs meds vs other. s/p 500 bolus with tachycardia --Resumed lasix --Creatinine stable (4) HTN (hypertension): Qualifiers: Hypertension type: primary hypertension Qualified Code(s): I10 - Essential (primary) hypertension Code(s): I10 - Essential (primary) hypertension Status: Acute Assessment and Plan: - Appears well controlled. - Continue metoprolol, changed from XL to IR for titration - Follow VS (5) Hyperlipidemia: Qualifiers: Hyperlipidemia type: mixed hyperlipidemia Qualified Code(s): E78.2 - Mixed hyperlipidemia Code(s): E78.5 - Hyperlipidemia, unspecified Status: Acute Assessment and Plan: - continue statin. (6) Shortness of breath: Code(s): R06.02 - Shortness of breath Status: Acute Assessment and Plan: Mildly tachypneic. Not obviously overloaded on exam, likely 2/2 pneumonia --Started heparin drip, if not resolved consider a CT r/o PE, but is on warfarin chronically for mechanical heart valve --Treatment of pneumonia and heart failure, rate control afib --PEP therapy for airway clearance (7) Anemia: Code(s): D64.9 - Anemia, unspecified Status: Acute Assessment and Plan: Blood count trending down since admission but may be dilutional 14.2>11.1 Iron panel showing iron deficiency anemia, Total Iron and Tsat low. B12 636. LDH 245 --iron sucrose 300mg x3 doses --Follow CBC --If downtrending would need GI consult on chronic anticoagulation (8) Heart failure, diastolic, acute on chronic: Code(s): I50.33 - Acute on chronic diastolic (congestive) heart failure Status: Acute Assessment and Plan: 08/24/23 Echo: TDS. EF 45%, biatrial enlargement, suspect (YADIRA 1.4 cm2), mod MR, mild-mod TR. s/p 500ml fluid bolus, now back on IV lasix NT-proBNP 10,000 Resume lasix, 20mg IV daily & increase as able TTE (9) Pneumonia: Code(s): J18.9 - Pneumonia, unspecified organism Status: Acute Assessment and Plan: Hospital associated pneumonia. Chest x-ray showed possible RLL pneumonia. Has crackles on exam. Intermittent fevers. Resolved today after starting unasyn. On room air --Started Unasyn, change to augmentin if improving --If new oxygen requirements, broaden to Cefepime/Vanc/Flagyl --Also has a sore throat, checking strep culture. Chlorseptic drops & tylenol prn --Urine for strep pneumo --Follow up chest x-ray if new oxygen requirement or not resolving --Staph screen. Can broaden to Cefepime/Vanc if worsening --Sputum culture if able to collect. Would only use to guide treatment if not improving with current antibiotics (10) Atrial fibrillation with RVR: Code(s): I48.91 - Unspecified atrial fibrillation Status: Acute Assessment and Plan: Home metoprolol ER 25mg daily Resting HR 70s-90s, 100-130's with activity on 03/10. Rate controlled with increased dose of metoprolol and a 500ml fluid bolus - Change Metoprolol ER 25mg daily to metoprolol tartrate 12.5mg q6 and titrate. 5mg IV metoprolol --INR goal as noted for mechanical heart valve. INR can be affected by antibiotics --Cardiology consulted, appreciate recommendations Time Spent With Patient Time: 59 minutes Subjective Date/time seen: 03/12/24 15:59 Interval history: Still short of breath and coughing, has a sore throat. Intermittent productive cough HR improved. Fevers resolved. On Room air Review of Systems Review of Systems: All systems reviewed & are unremarkable except as noted in HPI and below Exam Narrative: General: Fair appearing, no acute distress. HEENT: Atraumatic, PERRL, moist mucus membrane, anicteric. NECK: No JVD. HEART: irregular, NL S1/S2, no murmurs. mechanical valve/click LUNGS: RLL crackles Abdomen: Soft, non-tender, non-distended, +ve bowel sounds X4 quadrants. Extremities: Acyanotic, no edema. Skin: Warm and dry. Neuro: No focal neuro deficits noted. Psych: Pleasant and co-operative. A/O x4. Objective Data Vital Signs Vital Signs: Vital Signs - 24 hr 03/11/24 16:00 03/11/24 16:03 03/11/24 20:00 Temperature 98.6 F 98.5 F Pulse Rate 79 93 89 Respiratory Rate 20 20 Blood Pressure 116/69 115/82 Pulse Oximetry 93 99 Oxygen Delivery 03/11/24 20:02 03/12/24 00:00 03/12/24 00:00 Temperature 98.4 F Pulse Rate 90 93 105 H Respiratory Rate 20 Blood Pressure 127/76 Pulse Oximetry 94 Oxygen Delivery 03/12/24 02:57 03/12/24 04:00 03/12/24 08:00 Temperature 98.4 F 98.2 F Pulse Rate 91 91 62 Respiratory Rate 18 16 Blood Pressure 140/88 131/85 Pulse Oximetry 97 96 Oxygen Delivery 03/12/24 08:00 03/12/24 08:02 03/12/24 12:00 Temperature 98.0 F Pulse Rate 80 93 Respiratory Rate 16 Blood Pressure 117/78 Pulse Oximetry 96 Oxygen Delivery Room Air 03/12/24 12:28 Temperature Pulse Rate 90 Respiratory Rate Blood Pressure Pulse Oximetry Oxygen Delivery Intake/Output Intake/Output: Intake & Output 03/09/24 03/10/24 03/11/24 03/12/24 23:59 23:59 23:59 23:59 Intake Total 2750 1615.8 2394.2 929.4 Output Total 1100 900 700 450 Balance 1650 715.8 1694.2 479.4 Meds/Results Medications: Active Medications Generic Name Dose Route Start Last Admin Trade Name Freq PRN Reason Stop Dose Admin Acetaminophen 1,000 mg 03/10/24 10:04 03/11/24 00:10 Acetaminophen 500 Mg Tablet PO 1,000 mg Q6H PRN Administration Mild Pain (1-3) or Fever Hydrocodone Bitart/Acetaminophen 1 tab 03/08/24 17:21 03/12/24 06:01 Hydrocodone/Acetaminophen (*Crx) 5-325 Mg Tablet PO 1 tab Q6H PRN Administration Pain Rated 4-6 Albuterol 2 puff 03/08/24 17:21 Albuterol Sulfate (*Sp) Aerosol 1 Puff INHALATION QID PRN Shortness Of Breath Alprazolam 0.25 mg 03/08/24 17:21 03/11/24 21:40 Alprazolam (*Crx) 0.25 Mg Tablet PO 0.25 mg HS PRN Administration Anxiety Benzocaine 1 lozenge 03/10/24 18:17 03/11/24 12:36 Benzocaine/Menthol (*Bkc) 18 Ea Lozenge PO 1 lozenge PRN PRN Administration Sore Throat Cyanocobalamin 1,000 mcg 03/09/24 09:00 03/12/24 08:06 Cyanocobalamin 1,000 Mcg Tablet PO 1,000 mcg DAILY INA Administration Diclofenac Sodium 1 applic 03/10/24 10:04 03/10/24 12:24 Diclofenac Sodium 1% 100 Gm Gel (*Bkc) TOPICAL 1 applic QID PRN Administration joint pain Furosemide 20 mg 03/12/24 09:00 03/12/24 08:07 Furosemide Inj 40 Mg/4 Ml Vial IV PUSH 20 mg DAILY IAN Administration Gabapentin 300 mg 03/08/24 21:00 03/12/24 08:07 Gabapentin 300 Mg Capsule PO 300 mg Q12HR IAN Administration Guaifenesin/Dextromethorphan 10 ml 03/11/24 23:14 03/12/24 12:11 Guaifenesin/Dextromethorphan 10 Ml Udc PO 10 ml Q4H PRN Administration Cough Heparin Sodium (Porcine) 5,500 units 03/10/24 07:37 03/10/24 08:12 Heparin Sodium 5,000 Units/Ml Vial IV PUSH 5,500 units PRN PRN Administration aPTT less than 55 seconds Heparin Sodium (Porcine) 2,500 units 03/10/24 07:37 03/11/24 12:42 Heparin Sodium 5,000 Units/Ml Vial IV PUSH 2,500 units PRN PRN Administration aPTT 55 - 70 seconds Hydromorphone HCl 0.2 mg 03/10/24 12:48 Hydromorphone Hcl Inj (*Crx) 1 Mg/Ml Syr IV PUSH Q6H PRN Pain Rated 7-10 Heparin Sodium/Dextrose 25,000 units in 250 mls @ 5 mls/hr 03/10/24 07:40 03/12/24 10:46 Heparin Sodium/D5w 100 Units/Ml IV CONT 500 units/hr .Q24H IAN 5 mls/hr Titration Protocol 500 UNITS/HR Ampicillin Sodium/Sulbactam Sodium 3 gm in 100 mls @ 200 mls/hr 03/11/24 11:25 03/12/24 12:04 Unasyn 3 Gm/Ns 100 Ml IVPB 200 mls/hr Q6HR IAN Administration Methimazole 5 mg 03/09/24 09:00 03/12/24 08:06 Methimazole 5 Mg Tab PO 5 mg DAILY IAN Administration Metoprolol Tartrate 12.5 mg 03/10/24 07:35 03/12/24 12:28 Metoprolol Tartrate 12.5 Mg Tablet PO 12.5 mg Q6HR IAN Administration Cinacalcet 15 Mg 0 each 03/10/24 09:00 03/12/24 08:10 Tablet PO 04/09/24 08:59 1 each DAILY IAN Administration Pantoprazole Sodium 40 mg 03/09/24 09:00 03/12/24 08:07 Pantoprazole 40 Mg Tablet PO 40 mg QAM IAN Administration Potassium Chloride 10 meq 03/08/24 21:00 03/11/24 21:40 Potassium Chloride 10 Meq Er Tablet PO 10 meq HS IAN Administration Simvastatin 10 mg 03/08/24 21:00 03/11/24 21:41 Simvastatin 10 Mg Tablet PO 10 mg HS IAN Administration Venlafaxine HCl 150 mg 03/09/24 09:00 03/12/24 08:07 Venlafaxine Hcl Xr 75 Mg Cap.Er.24h PO 150 mg DAILY IAN Administration Vitamin D 1,000 units 03/09/24 09:00 03/12/24 08:07 Cholecalciferol 1,000 Units Tablet PO 1,000 units DAILY IAN Administration Warfarin Sodium 9 mg 03/11/24 17:00 03/11/24 17:55 Warfarin (*Pbkc) 3 Mg Tablet PO 9 mg DAILY@1700 IAN Administration Radiology Results: ITS Impressions Chest X-Ray 03/10/24 15:01 IMPRESSION: Persisting cardiomegaly with possible left lower lobe infiltrate, as detailed above. Labs Labs: Laboratory Results - last 24 hr 03/11/24 03/11/24 03/12/24 16:53 16:59 01:35 Absolute Retic Percent Retic Immature Retic Fraction Retic Hgb Content PT INR APTT > 200.0 H* 141.6 H Sodium Potassium Chloride Carbon Dioxide Anion Gap BUN Creatinine Estim Creat Clear Calc Estimated GFR Glucose POC Capillary Glucose 119 H Calcium Iron TIBC % Saturation Ferritin Total Bilirubin Direct Bilirubin AST ALT Alkaline Phosphatase Total Protein Albumin Vitamin B12 03/12/24 03/12/24 03/12/24 06:43 06:43 06:43 Absolute Retic 0.05 Percent Retic 1.60 Immature Retic Fraction 10.8 Retic Hgb Content 34.0 PT 24.8 H D 23.9 H INR 2.2 2.1 APTT 145.8 H Sodium Potassium Chloride Carbon Dioxide Anion Gap BUN Creatinine Estim Creat Clear Calc Estimated GFR Glucose POC Capillary Glucose Calcium Iron TIBC % Saturation Ferritin Total Bilirubin Direct Bilirubin AST ALT Alkaline Phosphatase Total Protein Albumin Vitamin B12 03/12/24 03/12/24 03/12/24 06:43 08:04 11:53 Absolute Retic Percent Retic Immature Retic Fraction Retic Hgb Content PT INR APTT Cancelled Sodium 136 L Potassium 3.8 Chloride 109 H Carbon Dioxide 29 Anion Gap -2 L BUN 14 Creatinine 1.10 H Estim Creat Clear Calc 39 Estimated GFR 48 L Glucose 93 POC Capillary Glucose 76 86 Calcium 9.3 Iron 13 L TIBC 267 % Saturation 5 L Ferritin 79.10 Total Bilirubin 0.4 Direct Bilirubin 0.0 AST 28 ALT 13 Alkaline Phosphatase 47 Total Protein 6.0 L Albumin 3.0 L Vitamin B12 636.0 Quality VTE Prophylaxis VTE prophylaxis: pharmacologic ordered Hospitalist MIPS Advance Care Plan I have confirmed that the patient's Advanced Care Plan is present, code status is documented, or surrogate decision maker is listed in patient medical record.: Yes Medication Reconciliation I have utilized all available resources to obtain, update and review the patients current medications (includes all prescriptions, OTC, herbals, cannabis, and nutritional supplements).: Yes
[2024-03-12 16:19] LABS: Glucose Point of Care 110 mg/dl (65-105)
[2024-03-12] MEDS: IRON SUCROSE COMPLEX IVPB (16:24)
[2024-03-12] MEDS: [UNRECOGNIZED DRUG - OTHER] IVPB (16:24)
[2024-03-12] MEDS: WARFARIN (*PBKC) 3 MG TABLET 9 MG PO (17:17)
[2024-03-12 17:52] LABS: Strep Group A RT-PCR NOT DETECTED (Negative)
[2024-03-12 17:53] LABS: Partial Thromboplastin Time 104.7 Seconds (22.3-36.8)
[2024-03-12 18:38] LABS: MRSA (PCR) NOT DETECTED (NOT DETECTE)
[2024-03-12 20:39] LABS: Glucose Point of Care 99 mg/dl (65-105)
[2024-03-12] MEDS: ALPRAZolam (*CRX) 0.25 MG TABLET PO (21:41)
[2024-03-12] MEDS: POTASSIUM CHLORIDE 10 MEQ ER TABLET PO (21:42)
[2024-03-12] MEDS: SIMVASTATIN 10 MG TABLET PO (21:42)
[2024-03-13] VITALS (12 sets, daily range): BP systolic 114–129; BP diastolic 62–73; PULSE 85–125; RESP 16–18; TEMP 36.6–37.5; O2SAT 88–100
[2024-03-13 00:14] LABS: Partial Thromboplastin Time 187.3 Seconds (22.3-36.8)
[2024-03-13] MEDS: METOPROLOL TARTRATE 12.5 MG TABLET PO ×5 (00:19→23:38)
[2024-03-13] MEDS: HYDROcodone/acetaminophen (*CRX) 5-325 MG TABLET 1 TAB PO ×3 (00:19→22:02)
[2024-03-13] MEDS: AMPICILLIN SULB 3 GM/NS 100 ML 3 GM/100 ML VIAL IVPB ×5 (00:19→23:38)
[2024-03-13 07:17] LABS: Basophils Percent Auto 0.6 % (0.2-1.2); Eosinophils Absolute Auto 0.3 K/mm3 (0-0.3); Eosinophils Percent Auto 8.6 % (0-4.4); Immature Granulocyte Absolute 0.01 K/mm3 (0.00-0.031); Immature Granulocyte Percent A 0.3 % (0-0.5); Immature Platelet Fraction Pct 15.8 % (0.9-11.2); Lymphocytes Absolute Auto 0.74 K/mm3 (0.9-3.2); Lymphocytes Percent Auto 20.5 % (18.3-44.2); Mean Corpuscular HGB Conc 32.3 g/dl (32-36); Mean Corpuscular Hemoglobin 33.2 pg (26-34); Mean Platelet Volume 13.4 fl (7.4-10.4); Monocytes Absolute Auto 0.7 K/mm3 (0.1-0.6); Monocytes Percent Auto 20.5 % (2.6-8.5); Neutrophils Absolute Auto 1.8 K/mm3 (1.3-6.7); Neutrophils Percent Auto 49.5 % (45.5-73.1); Platelet Count Result 123 k/mm3 (150-375); Red Blood Count 3.01 M/mm3 (4.2-5.4); Red Cell Distribution Width 13.3 % (11.5-14.5); White Blood Count 3.6 K/mm3 (4.5-10.0)
[2024-03-13 07:29] LABS: Anion Gap -2 mmol/L (4-12); Blood Urea Nitrogen 15 mg/dL (7-17); Calcium 9.2 mg/dL (8.4-10.2); Carbon Dioxide 32 mmol/L (22-30); Chloride 107 mmol/L (98-107); Estimated CRCL calculation 39 ml/min; Estimated Glomerular Filt Rate 48; Glucose 68 mg/dL (65-110); Sodium 137 mmol/L (137-145)
[2024-03-13 07:42] LABS: INR 2.8; Prothrombin Time 29.7 Seconds (11.1-14.7)
[2024-03-13 07:44] LABS: Partial Thromboplastin Time 107.4 Seconds (22.3-36.8)
[2024-03-13] MEDS: FUROSEMIDE INJ 40 MG/4 ML VIAL 20 MG IV PUSH (08:09)
[2024-03-13] MEDS: GABAPENTIN 300 MG CAPSULE PO ×2 (08:09→21:58)
[2024-03-13] MEDS: methiMAzole 5 MG TAB PO (08:09)
[2024-03-13] MEDS: VENLAFAXINE HCL XR 75 MG CAP.ER.24H 150 MG PO (08:09)
[2024-03-13] MEDS: CYANOCOBALAMIN 1,000 MCG TABLET 1000 MCG PO (08:09)
[2024-03-13] MEDS: PANTOPRAZOLE 40 MG TABLET PO (08:09)
[2024-03-13] MEDS: CHOLECALCIFEROL 1,000 UNITS TABLET 1000 UNITS PO (08:09)
[2024-03-13] MEDS: CINACALCET PO (08:17)
[2024-03-13] MEDS: [UNRECOGNIZED DRUG - OTHER] IVPB (08:44)
[2024-03-13] MEDS: IRON SUCROSE COMPLEX IVPB (08:44)
[2024-03-13 08:45] LABS: Glucose Point of Care 75 mg/dl (65-105)
--- NOTE | 2024-03-13 09:09 | P.PNIM_ITS ---
Progress Note: A&P Assessment and Plan (1) Mechanical heart valve present: Code(s): Z95.2 - Presence of prosthetic heart valve Status: Acute Assessment and Plan: Audible mechanical heart valve. INR subtherapeutic for several days, 1.5, 1.4, 1 today. Next of Kin, PCP manages INR and warfarin doses for her. Next of Kin, Anshul coordinates with the office. The last 2 weeks before admission she was taking 6 mg thursday-, 5mg thursday, sat, sun. Generally has INR checks ever 2 weeks Goal INR 2.5-3.5 with her mechanical valve. Izzy reports 9mg daily is a higher dose than she has needed previously --Started a heparin drip with a bolus for subtherapeutic INR --Follow CBC since trending down but may be dilutional. Stable overnight --Warfarin 8mg<9mg daily --Daily INR, closer to goal --Coordinate INR checks & follow up plan with PCP's office, Dr. Sanjeev Rosenberg 03/07 1.5 03/08 Warfarin 6mg 03/09 1.4 Warfarin 6mg 03/10 1 Warfarin 8mg 03/11 1.7 Warfarin 9mg 03/12 2.1 & 2.2 Warfarin 9mg (lab said it was likely run twice for a precision check) (2) Palpitations: Code(s): R00.2 - Palpitations Status: Acute Assessment and Plan: - Likely due to PAF with RVR. - Better after hydration and resuming home meds. (3) Acute kidney injury: Code(s): N17.9 - Acute kidney failure, unspecified Status: Acute Assessment and Plan: Ddx pre-renal vs poor PO intake vs meds vs other. s/p 500 bolus with tachycardia --Resumed lasix --Creatinine stable (4) HTN (hypertension): Qualifiers: Hypertension type: primary hypertension Qualified Code(s): I10 - Essential (primary) hypertension Code(s): I10 - Essential (primary) hypertension Status: Acute Assessment and Plan: - Appears well controlled. - Continue metoprolol, changed from XL to IR for titration - Follow VS (5) Hyperlipidemia: Qualifiers: Hyperlipidemia type: mixed hyperlipidemia Qualified Code(s): E78.2 - Mixed hyperlipidemia Code(s): E78.5 - Hyperlipidemia, unspecified Status: Acute Assessment and Plan: - continue statin. (6) Shortness of breath: Code(s): R06.02 - Shortness of breath Status: Acute Assessment and Plan: Mildly tachypneic. Not obviously overloaded on exam, likely 2/2 pneumonia --Started heparin drip, if not resolved consider a CT r/o PE, but is on warfarin chronically for mechanical heart valve --Treatment of pneumonia and heart failure, rate control afib --PEP therapy for airway clearance (7) Anemia: Code(s): D64.9 - Anemia, unspecified Status: Acute Assessment and Plan: Blood count trending down since admission but may be dilutional 14.2>11.1 Iron panel showing iron deficiency anemia, Total Iron and [place] low. B12 636. LDH 245 --iron sucrose 300mg x3 doses --Follow CBC --If downtrending would need GI consult on chronic anticoagulation (8) Heart failure, diastolic, acute on chronic: Code(s): I50.33 - Acute on chronic diastolic (congestive) heart failure Status: Acute Assessment and Plan: 08/24/23 Echo: TDS. EF 45%, biatrial enlargement, suspect (YADIRA 1.4 cm2), mod MR, mild-mod TR. s/p 500ml fluid bolus, now back on IV lasix NT-proBNP 10,000 Resume lasix, 20mg IV daily & increase as able TTE (9) Pneumonia: Code(s): J18.9 - Pneumonia, unspecified organism Status: Acute Assessment and Plan: Hospital associated pneumonia. Chest x-ray showed possible RLL pneumonia. Has crackles on exam. Intermittent fevers. Resolved today after starting unasyn. On room air --Started Unasyn, change to augmentin if improving --If new oxygen requirements, broaden to Cefepime/Vanc/Flagyl --Also has a sore throat, checking strep culture. Chlorseptic drops & tylenol prn --Urine for strep pneumo --Follow up chest x-ray if new oxygen requirement or not resolving --Staph screen. Can broaden to Cefepime/Vanc if worsening --Sputum culture if able to collect. Would only use to guide treatment if not improving with current antibiotics (10) Atrial fibrillation with RVR: Code(s): I48.91 - Unspecified atrial fibrillation Status: Acute Assessment and Plan: Home metoprolol ER 25mg daily Resting HR 70s-90s, 100-130's with activity on 03/10. Rate controlled with increased dose of metoprolol and a 500ml fluid bolus - Change Metoprolol ER 25mg daily to metoprolol tartrate 12.5mg q6 and titrate. 5mg IV metoprolol --INR goal as noted for mechanical heart valve. INR can be affected by antibiotics --Cardiology consulted, appreciate recommendations Subjective Date/time seen: 03/13/24 09:09 Interval history: Sent in a 89-year-old female with presented to the ED because of palpitation and dizziness. Patient has a past medical history of mechanical valve, left bundle- branch block, AFib. Patient is on warfarin 9 mg. Review of Systems Review of Systems: All systems reviewed & are unremarkable except as noted in HPI and below Exam Narrative: General: Fair appearing, no acute distress. HEENT: Atraumatic, PERRL, moist mucus membrane, anicteric. NECK: No JVD. HEART: irregular, NL S1/S2, no murmurs. mechanical valve/click LUNGS: RLL crackles Abdomen: Soft, non-tender, non-distended, +ve bowel sounds X4 quadrants. Extremities: Acyanotic, no edema. Skin: Warm and dry. Neuro: No focal neuro deficits noted. Psych: Pleasant and co-operative. A/O x4. Objective Data Vital Signs Vital Signs: Vital Signs - 24 hr 03/12/24 12:00 03/12/24 12:00 03/12/24 12:28 Temperature 98.0 F Pulse Rate 93 93 90 Respiratory Rate 16 Blood Pressure 117/78 Pulse Oximetry 96 03/12/24 16:00 03/12/24 16:00 03/12/24 17:38 Temperature 98.4 F Pulse Rate 92 91 93 Respiratory Rate 16 Blood Pressure 104/60 Pulse Oximetry 100 03/12/24 20:00 03/12/24 20:00 03/12/24 23:57 Temperature 99.0 F 98.3 F Pulse Rate 92 92 90 Respiratory Rate 16 14 Blood Pressure 118/80 125/63 Pulse Oximetry 94 92 03/13/24 00:00 03/13/24 00:19 03/13/24 04:00 Temperature Pulse Rate 90 85 92 Respiratory Rate Blood Pressure Pulse Oximetry 03/13/24 04:52 03/13/24 08:00 Temperature 97.8 F 97.8 F Pulse Rate 93 92 Respiratory Rate 16 18 Blood Pressure 129/62 116/70 Pulse Oximetry 93 91 Intake/Output Intake/Output: Intake & Output 03/10/24 03/11/24 03/12/24 03/13/24 23:59 23:59 23:59 23:59 Intake Total 1615.8 2394.2 2039.4 638.0 Output Total 812 383 7826 700 Balance 715.8 1694.2 389.4 -62.0 Meds/Results Medications: Active Medications Generic Name Dose Route Start Last Admin Trade Name Freq PRN Reason Stop Dose Admin Acetaminophen 1,000 mg 03/10/24 10:04 03/11/24 00:10 Acetaminophen 500 Mg Tablet PO 1,000 mg Q6H PRN Administration Mild Pain (1-3) or Fever Hydrocodone Bitart/Acetaminophen 1 tab 03/08/24 17:21 03/13/24 00:19 Hydrocodone/Acetaminophen (*Crx) 5-325 Mg Tablet PO 1 tab Q6H PRN Administration Pain Rated 4-6 Albuterol 2 puff 03/08/24 17:21 Albuterol Sulfate (*Sp) Aerosol 1 Puff INHALATION QID PRN Shortness Of Breath Alprazolam 0.25 mg 03/08/24 17:21 03/12/24 21:41 Alprazolam (*Crx) 0.25 Mg Tablet PO 0.25 mg HS PRN Administration Anxiety Benzocaine 1 lozenge 03/10/24 18:17 03/11/24 12:36 Benzocaine/Menthol (*Bkc) 18 Ea Lozenge PO 1 lozenge PRN PRN Administration Sore Throat Cyanocobalamin 1,000 mcg 03/09/24 09:00 03/13/24 08:09 Cyanocobalamin 1,000 Mcg Tablet PO 1,000 mcg DAILY IAN Administration Diclofenac Sodium 1 applic 03/10/24 10:04 03/10/24 12:24 Diclofenac Sodium 1% 100 Gm Gel (*Bkc) TOPICAL 1 applic QID PRN Administration joint pain Furosemide 20 mg 03/12/24 09:00 03/13/24 08:09 Furosemide Inj 40 Mg/4 Ml Vial IV PUSH 20 mg DAILY IAN Administration Gabapentin 300 mg 03/08/24 21:00 03/13/24 08:09 Gabapentin 300 Mg Capsule PO 300 mg Q12HR IAN Administration Guaifenesin/Dextromethorphan 10 ml 03/11/24 23:14 03/12/24 21:41 Guaifenesin/Dextromethorphan 10 Ml Udc PO 10 ml Q4H PRN Administration Cough Heparin Sodium (Porcine) 5,500 units 03/10/24 07:37 03/10/24 08:12 Heparin Sodium 5,000 Units/Ml Vial IV PUSH 5,500 units PRN PRN Administration aPTT less than 55 seconds Heparin Sodium (Porcine) 2,500 units 03/10/24 07:37 03/11/24 12:42 Heparin Sodium 5,000 Units/Ml Vial IV PUSH 2,500 units PRN PRN Administration aPTT 55 - 70 seconds Hydromorphone HCl 0.2 mg 03/10/24 12:48 Hydromorphone Hcl Inj (*Crx) 1 Mg/Ml Syr IV PUSH Q6H PRN Pain Rated 7-10 Heparin Sodium/Dextrose 25,000 units in 250 mls @ 2 mls/hr 03/10/24 07:40 03/13/24 08:07 Heparin Sodium/D5w 100 Units/Ml IV CONT 200 units/hr .Q24H IAN 2 mls/hr Titration Protocol 200 UNITS/HR Ampicillin Sodium/Sulbactam Sodium 3 gm in 100 mls @ 200 mls/hr 03/11/24 11:25 03/13/24 06:40 Unasyn 3 Gm/Ns 100 Ml IVPB 200 mls/hr Q6HR IAN Administration Iron Sucrose 300 mg/ Iron 270 mls @ 176.667 mls/hr 03/12/24 16:10 03/13/24 08:44 Sucrose 100 mg/ Sodium IVPB 03/14/24 10:32 176.6 mls/hr Chloride DAILY IAN Administration Methimazole 5 mg 03/09/24 09:00 03/13/24 08:09 Methimazole 5 Mg Tab PO 5 mg DAILY IAN Administration Metoprolol Tartrate 12.5 mg 03/10/24 07:35 03/13/24 06:40 Metoprolol Tartrate 12.5 Mg Tablet PO 12.5 mg Q6HR IAN Administration Cinacalcet 15 Mg 0 each 03/10/24 09:00 03/13/24 08:17 Tablet PO 04/09/24 08:59 1 each DAILY IAN Administration Pantoprazole Sodium 40 mg 03/09/24 09:00 03/13/24 08:09 Pantoprazole 40 Mg Tablet PO 40 mg QAM IAN Administration Potassium Chloride 10 meq 03/08/24 21:00 03/12/24 21:42 Potassium Chloride 10 Meq Er Tablet PO 10 meq HS IAN Administration Simvastatin 10 mg 03/08/24 21:00 03/12/24 21:42 Simvastatin 10 Mg Tablet PO 10 mg HS IAN Administration Venlafaxine HCl 150 mg 03/09/24 09:00 03/13/24 08:09 Venlafaxine Hcl Xr 75 Mg Cap.Er.24h PO 150 mg DAILY IAN Administration Vitamin D 1,000 units 03/09/24 09:00 03/13/24 08:09 Cholecalciferol 1,000 Units Tablet PO 1,000 units DAILY IAN Administration Warfarin Sodium 9 mg 03/11/24 17:00 03/12/24 17:17 Warfarin (*Pbkc) 3 Mg Tablet PO 9 mg DAILY@1700 IAN Administration Radiology Results: ITS Impressions Chest X-Ray 03/10/24 15:01 IMPRESSION: Persisting cardiomegaly with possible left lower lobe infiltrate, as detailed above. Labs Labs: Laboratory Results - last 24 hr 03/12/24 03/12/24 03/12/24 11:53 16:17 17:05 WBC RBC Hgb Hct MCV MCH MCHC RDW Plt Count MPV Immature Gran % (Auto) Neut % (Auto) Lymph % (Auto) [place] % (Auto) Eos % (Auto) Baso % (Auto) Lymph # (Auto) [place] # (Auto) Eos # (Auto) Baso # (Auto) Abs Immat Gran (auto) Absolute Neuts (auto) Absolute Nucleated RBC Nucleated RBC % % Immature Plt Fraction PT INR APTT Sodium Potassium Chloride Carbon Dioxide Anion Gap BUN Creatinine Estim Creat Clear Calc Estimated GFR Glucose POC Capillary Glucose 86 110 H Calcium Nasal MRSA (PCR) Not detected Group A Strep (PCR) 03/12/24 03/12/24 03/12/24 17:09 17:26 19:40 WBC RBC Hgb Hct MCV MCH MCHC RDW Plt Count MPV Immature Gran % (Auto) Neut % (Auto) Lymph % (Auto) [place] % (Auto) Eos % (Auto) Baso % (Auto) Lymph # (Auto) [place] # (Auto) Eos # (Auto) Baso # (Auto) Abs Immat Gran (auto) Absolute Neuts (auto) Absolute Nucleated RBC Nucleated RBC % % Immature Plt Fraction PT INR APTT 104.7 H Sodium Potassium Chloride Carbon Dioxide Anion Gap BUN Creatinine Estim Creat Clear Calc Estimated GFR Glucose POC Capillary Glucose 99 Calcium Nasal MRSA (PCR) Group A Strep (PCR) Not detected 03/12/24 03/13/24 03/13/24 23:29 07:09 07:09 WBC 3.6 L RBC 3.01 L Hgb 10.0 L Hct 31.0 L MCV 103.0 H MCH 33.2 MCHC 32.3 RDW 13.3 Plt Count 123 L MPV 13.4 H Immature Gran % (Auto) 0.3 Neut % (Auto) 49.5 Lymph % (Auto) 20.5 [place] % (Auto) 20.5 H Eos % (Auto) 8.6 H Baso % (Auto) 0.6 Lymph # (Auto) 0.74 L [place] # (Auto) 0.7 H Eos # (Auto) 0.3 Baso # (Auto) 0.0 Abs Immat Gran (auto) 0.01 Absolute Neuts (auto) 1.8 Absolute Nucleated RBC 0.000 Nucleated RBC % 0.0 % Immature Plt Fraction 15.8 H PT Cancelled 29.7 H D INR Cancelled APTT 187.3 H* Sodium Potassium Chloride Carbon Dioxide Anion Gap BUN Creatinine Estim Creat Clear Calc Estimated GFR Glucose POC Capillary Glucose Calcium Nasal MRSA (PCR) Group A Strep (PCR) 03/13/24 03/13/24 07:09 08:38 WBC RBC Hgb Hct MCV MCH MCHC RDW Plt Count MPV Immature Gran % (Auto) Neut % (Auto) Lymph % (Auto) [place] % (Auto) Eos % (Auto) Baso % (Auto) Lymph # (Auto) [place] # (Auto) Eos # (Auto) Baso # (Auto) Abs Immat Gran (auto) Absolute Neuts (auto) Absolute Nucleated RBC Nucleated RBC % % Immature Plt Fraction PT INR 2.8 APTT 107.4 H Sodium 137 Potassium 4.0 Chloride 107 Carbon Dioxide 32 H Anion Gap -2 L BUN 15 Creatinine 1.10 H Estim Creat Clear Calc 39 Estimated GFR 48 L Glucose 68 POC Capillary Glucose 75 Calcium 9.2 Nasal MRSA (PCR) Group A Strep (PCR) Quality VTE Prophylaxis VTE prophylaxis: pharmacologic ordered Hospitalist MIPS Advance Care Plan I have confirmed that the patient's Advanced Care Plan is present, code status is documented, or surrogate decision maker is listed in patient medical record.: Yes Medication Reconciliation I have utilized all available resources to obtain, update and review the patients current medications (includes all prescriptions, OTC, herbals, cannabis, and nutritional supplements).: Yes
[2024-03-13 12:13] LABS: Partial Thromboplastin Time 146.3 Seconds (22.3-36.8)
[2024-03-13 12:31] LABS: Glucose Point of Care 134 mg/dl (65-105)
[2024-03-13 12:31] LABS: Glucose Point of Care 77 mg/dl (65-105)
[2024-03-13] MEDS: guaiFENesin/DEXTROMETHORPHAN 10 ML UDC PO (13:11)
[2024-03-13] MEDS: guaiFENesin 12 HR 600 MG TABCR 1200 MG PO ×2 (13:11→21:59)
--- NOTE | 2024-03-13 13:43 | P.PNCA_ITS ---
Progress Note: A&P Assessment and Plan (1) Shortness of breath: Code(s): R06.02 - Shortness of breath Status: Acute Assessment and Plan: She has mild reduction of her left ventricular ejection fraction noted on prior echo noted to be roughly 45% likely combined heart failure exacerbation and URI superimposed on prior history of COPD currently on antibiotics per primary service It is probably best continue her on her IV diuretic dosing to avoid her having decompensation of CHF while here suspect congestion and coarse breathsounds will respond to pulmonary toilet/incentive spirometer (2) Mechanical heart valve present: Code(s): Z95.2 - Presence of prosthetic heart valve Status: Acute Assessment and Plan: Patient has a known mechanical aortic valve prosthesis [facility] mechanical aortic valve replacement (2003) [facility] valve Her INR was therapeutic Mechanical heart sounds are noted on exam She needs higher doses of Coumadin Have to be careful with the Coumadin as the INR can be very volatile in the setting of antibiotics She has mild reduction of her left ventricular ejection fraction noted on prior echo noted to be roughly 45% (3) Heart palpitations: Code(s): R00.2 - Palpitations Status: Acute Assessment and Plan: Patient is in controlled atrial fibrillation she had noted palpitations prior to admission currently feels back to her usual state of health has been maintained on Coumadin managed by her PCP for her mechanical aortic valve as well as coverage for AFib (4) Current use of care home anticoagulation: Code(s): Z79.01 - salvage determiner (current) use of anticoagulants Status: Acute Assessment and Plan: Patient is in controlled atrial fibrillation Patient has a known mechanical aortic valve prosthesis [facility] mechanical aortic valve replacement (2003) [facility] valve Her INR now therapeutic Mechanical heart sounds are noted on exam Plan Plan Patient appears to be back to her usual state of health Therapeutic INR 2.8 needs to continue with coumadin for AVR and afib She will need anticoagulation for the mechanical aortic valve I agree with IV heparin for now and then transition to Coumadin (DC iv heparin) Will need to follow her INR carefully as she is getting antibiotics Agree with utilizing short-acting beta-lexy for better rate control Okay to transition to sustained release metoprolol after she has stabilized May need respiratory treatments recommend incentive spirometer which could potentially trigger rapid ventricular response Subjective Date/time seen: 03/13/24 13:43 Interval history: No cp or sob has coarse breath sounds she needs pulmonary toilet and incentive spirometer rate controlled on tele monitor Exam Narrative: in no distress sitting in bed occasionally having productive cough Resp: Other: scattered rhonchi on breathing coarse breath sounds Cardio: Other: regular rhythm distant heart sounds with coughing valve sound noted Objective Data Vital Signs Vital Signs: Vital Signs - 24 hr 03/12/24 16:00 03/12/24 16:00 03/12/24 17:38 Temperature 36.9 C Pulse Rate 92 91 93 Respiratory Rate 16 Blood Pressure 104/60 Pulse Oximetry 100 Oxygen Delivery 03/12/24 20:00 03/12/24 20:00 03/12/24 23:57 Temperature 37.2 C 36.8 C Pulse Rate 92 92 90 Respiratory Rate 16 14 Blood Pressure 118/80 125/63 Pulse Oximetry 94 92 Oxygen Delivery 03/13/24 00:00 03/13/24 00:19 03/13/24 04:00 Temperature Pulse Rate 90 85 92 Respiratory Rate Blood Pressure Pulse Oximetry Oxygen Delivery 03/13/24 04:52 03/13/24 08:00 03/13/24 08:00 Temperature 36.6 C 36.6 C Pulse Rate 93 92 Respiratory Rate 16 18 Blood Pressure 129/62 116/70 Pulse Oximetry 93 91 Oxygen Delivery Room Air Intake/Output Intake/Output: Intake & Output 03/10/24 03/11/24 03/12/24 03/13/24 23:59 23:59 23:59 23:59 Intake Total 1615.8 2394.2 2039.4 1136.6 Output Total 558 344 8085 1800 Balance 715.8 1694.2 389.4 -663.4 Meds/Results Medications: Active Medications Generic Name Dose Route Start Last Admin Trade Name Freq PRN Reason Stop Dose Admin Acetaminophen 1,000 mg 03/10/24 10:04 03/11/24 00:10 Acetaminophen 500 Mg Tablet PO 1,000 mg Q6H PRN Administration Mild Pain (1-3) or Fever Hydrocodone Bitart/Acetaminophen 1 tab 03/08/24 17:21 03/13/24 13:14 Hydrocodone/Acetaminophen (*Crx) 5-325 Mg Tablet PO 1 tab Q6H PRN Administration Pain Rated 4-6 Albuterol 2 puff 03/08/24 17:21 Albuterol Sulfate (*Sp) Aerosol 1 Puff INHALATION QID PRN Shortness Of Breath Alprazolam 0.25 mg 03/08/24 17:21 03/12/24 21:41 Alprazolam (*Crx) 0.25 Mg Tablet PO 0.25 mg HS PRN Administration Anxiety Benzocaine 1 lozenge 03/10/24 18:17 03/11/24 12:36 Benzocaine/Menthol (*Bkc) 18 Ea Lozenge PO 1 lozenge PRN PRN Administration Sore Throat Cyanocobalamin 1,000 mcg 03/09/24 09:00 03/13/24 08:09 Cyanocobalamin 1,000 Mcg Tablet PO 1,000 mcg DAILY IAN Administration Diclofenac Sodium 1 applic 03/10/24 10:04 03/10/24 12:24 Diclofenac Sodium 1% 100 Gm Gel (*Bkc) TOPICAL 1 applic QID PRN Administration joint pain Furosemide 20 mg 03/12/24 09:00 03/13/24 08:09 Furosemide Inj 40 Mg/4 Ml Vial IV PUSH 20 mg DAILY IAN Administration Gabapentin 300 mg 03/08/24 21:00 03/13/24 08:09 Gabapentin 300 Mg Capsule PO 300 mg Q12HR IAN Administration Guaifenesin 1,200 mg 03/13/24 12:50 03/13/24 13:11 Guaifenesin 12 Hr 600 Mg Tabcr PO 1,200 mg Q12HR IAN Administration Guaifenesin/Dextromethorphan 10 ml 03/11/24 23:14 03/13/24 13:11 Guaifenesin/Dextromethorphan 10 Ml Udc PO 10 ml Q4H PRN Administration Cough Heparin Sodium (Porcine) 5,500 units 03/10/24 07:37 03/10/24 08:12 Heparin Sodium 5,000 Units/Ml Vial IV PUSH 5,500 units PRN PRN Administration aPTT less than 55 seconds Heparin Sodium (Porcine) 2,500 units 03/10/24 07:37 03/11/24 12:42 Heparin Sodium 5,000 Units/Ml Vial IV PUSH 2,500 units PRN PRN Administration aPTT 55 - 70 seconds Hydromorphone HCl 0.2 mg 03/10/24 12:48 Hydromorphone Hcl Inj (*Crx) 1 Mg/Ml Syr IV PUSH Q6H PRN Pain Rated 7-10 Heparin Sodium/Dextrose 25,000 units in 250 mls @ 0 mls/hr 03/10/24 07:40 03/13/24 12:24 Heparin Sodium/D5w 100 Units/Ml IV CONT 0 units/hr .Q0M IAN 0 mls/hr Titration Protocol Ampicillin Sodium/Sulbactam Sodium 3 gm in 100 mls @ 200 mls/hr 03/11/24 11:25 03/13/24 11:45 Unasyn 3 Gm/Ns 100 Ml IVPB 200 mls/hr Q6HR IAN Administration Iron Sucrose 300 mg/ Iron 270 mls @ 176.667 mls/hr 03/12/24 16:10 03/13/24 10:16 Sucrose 100 mg/ Sodium IVPB 03/14/24 10:32 Infused Chloride DAILY IAN Infusion Methimazole 5 mg 03/09/24 09:00 03/13/24 08:09 Methimazole 5 Mg Tab PO 5 mg DAILY IAN Administration Metoprolol Tartrate 12.5 mg 03/10/24 07:35 03/13/24 11:45 Metoprolol Tartrate 12.5 Mg Tablet PO 12.5 mg Q6HR IAN Administration Cinacalcet 15 Mg 0 each 03/10/24 09:00 03/13/24 08:17 Tablet PO 04/09/24 08:59 1 each DAILY IAN Administration Pantoprazole Sodium 40 mg 03/09/24 09:00 03/13/24 08:09 Pantoprazole 40 Mg Tablet PO 40 mg QAM IAN Administration Potassium Chloride 10 meq 03/08/24 21:00 03/12/24 21:42 Potassium Chloride 10 Meq Er Tablet PO 10 meq HS IAN Administration Simvastatin 10 mg 03/08/24 21:00 03/12/24 21:42 Simvastatin 10 Mg Tablet PO 10 mg HS IAN Administration Venlafaxine HCl 150 mg 03/09/24 09:00 03/13/24 08:09 Venlafaxine Hcl Xr 75 Mg Cap.Er.24h PO 150 mg DAILY IAN Administration Vitamin D 1,000 units 03/09/24 09:00 03/13/24 08:09 Cholecalciferol 1,000 Units Tablet PO 1,000 units DAILY IAN Administration Warfarin Sodium 9 mg 03/11/24 17:00 03/12/24 17:17 Warfarin (*Pbkc) 3 Mg Tablet PO 9 mg DAILY@1700 IAN Administration Radiology Results: ITS Impressions Chest X-Ray 03/10/24 15:01 IMPRESSION: Persisting cardiomegaly with possible left lower lobe infiltrate, as detailed above. Labs Labs: Laboratory Results - last 24 hr 03/12/24 03/12/24 03/12/24 16:17 17:05 17:09 WBC RBC Hgb Hct MCV MCH MCHC RDW Plt Count MPV Immature Gran % (Auto) Neut % (Auto) Lymph % (Auto) [place] % (Auto) Eos % (Auto) Baso % (Auto) Lymph # (Auto) [place] # (Auto) Eos # (Auto) Baso # (Auto) Abs Immat Gran (auto) Absolute Neuts (auto) Absolute Nucleated RBC Nucleated RBC % % Immature Plt Fraction PT INR APTT Sodium Potassium Chloride Carbon Dioxide Anion Gap BUN Creatinine Estim Creat Clear Calc Estimated GFR Glucose POC Capillary Glucose 110 H Calcium Nasal MRSA (PCR) Not detected Group A Strep (PCR) Not detected 03/12/24 03/12/24 03/12/24 17:26 19:40 23:29 WBC RBC Hgb Hct MCV MCH MCHC RDW Plt Count MPV Immature Gran % (Auto) Neut % (Auto) Lymph % (Auto) [place] % (Auto) Eos % (Auto) Baso % (Auto) Lymph # (Auto) [place] # (Auto) Eos # (Auto) Baso # (Auto) Abs Immat Gran (auto) Absolute Neuts (auto) Absolute Nucleated RBC Nucleated RBC % % Immature Plt Fraction PT INR APTT 104.7 H 187.3 H* Sodium Potassium Chloride Carbon Dioxide Anion Gap BUN Creatinine Estim Creat Clear Calc Estimated GFR Glucose POC Capillary Glucose 99 Calcium Nasal MRSA (PCR) Group A Strep (PCR) 03/13/24 03/13/24 03/13/24 07:09 07:09 07:09 WBC 3.6 L RBC 3.01 L Hgb 10.0 L Hct 31.0 L MCV 103.0 H MCH 33.2 MCHC 32.3 RDW 13.3 Plt Count 123 L MPV 13.4 H Immature Gran % (Auto) 0.3 Neut % (Auto) 49.5 Lymph % (Auto) 20.5 [place] % (Auto) 20.5 H Eos % (Auto) 8.6 H Baso % (Auto) 0.6 Lymph # (Auto) 0.74 L [place] # (Auto) 0.7 H Eos # (Auto) 0.3 Baso # (Auto) 0.0 Abs Immat Gran (auto) 0.01 Absolute Neuts (auto) 1.8 Absolute Nucleated RBC 0.000 Nucleated RBC % 0.0 % Immature Plt Fraction 15.8 H PT Cancelled 29.7 H D INR Cancelled 2.8 APTT 107.4 H Sodium 137 Potassium 4.0 Chloride 107 Carbon Dioxide 32 H Anion Gap -2 L BUN 15 Creatinine 1.10 H Estim Creat Clear Calc 39 Estimated GFR 48 L Glucose 68 POC Capillary Glucose Calcium 9.2 Nasal MRSA (PCR) Group A Strep (PCR) 03/13/24 03/13/24 03/13/24 08:38 11:35 11:45 WBC RBC Hgb Hct MCV MCH MCHC RDW Plt Count MPV Immature Gran % (Auto) Neut % (Auto) Lymph % (Auto) [place] % (Auto) Eos % (Auto) Baso % (Auto) Lymph # (Auto) [place] # (Auto) Eos # (Auto) Baso # (Auto) Abs Immat Gran (auto) Absolute Neuts (auto) Absolute Nucleated RBC Nucleated RBC % % Immature Plt Fraction PT INR APTT 146.3 H Sodium Potassium Chloride Carbon Dioxide Anion Gap BUN Creatinine Estim Creat Clear Calc Estimated GFR Glucose POC Capillary Glucose 75 77 Calcium Nasal MRSA (PCR) Group A Strep (PCR) 03/13/24 12:18 WBC RBC Hgb Hct MCV MCH MCHC RDW Plt Count MPV Immature Gran % (Auto) Neut % (Auto) Lymph % (Auto) [place] % (Auto) Eos % (Auto) Baso % (Auto) Lymph # (Auto) [place] # (Auto) Eos # (Auto) Baso # (Auto) Abs Immat Gran (auto) Absolute Neuts (auto) Absolute Nucleated RBC Nucleated RBC % % Immature Plt Fraction PT INR APTT Sodium Potassium Chloride Carbon Dioxide Anion Gap BUN Creatinine Estim Creat Clear Calc Estimated GFR Glucose POC Capillary Glucose 134 H Calcium Nasal MRSA (PCR) Group A Strep (PCR) Imaging Radiologist's impression: ECHO FROM THIS HOSPITALIZATION Summary 1. Normal LV size Mild Septal hypertrophy w/ mild-moderately reduced LV systolic function. 2. LVEF is about 35-40%. 3. Hx of prior AVR (mechanical) poorly visualized and has sclerotic valve. 4. Mildy enlarged RV size and preserved LV systolic fxn. 5. Mild AR. 6. Moderate MR and TR.
[2024-03-13 13:44] LABS: Partial Thromboplastin Time 131.6 Seconds (22.3-36.8)
[2024-03-13 17:16] LABS: Glucose Point of Care 82 mg/dl (65-105)
[2024-03-13] MEDS: WARFARIN (*PBKC) 3 MG TABLET 9 MG PO (17:40)
[2024-03-13 19:22] LABS: Partial Thromboplastin Time 95.6 Seconds (22.3-36.8)
[2024-03-13 21:19] LABS: Glucose Point of Care 99 mg/dl (65-105)
[2024-03-13] MEDS: POTASSIUM CHLORIDE 10 MEQ ER TABLET PO (21:59)
[2024-03-13] MEDS: ALPRAZolam (*CRX) 0.25 MG TABLET PO (21:59)
[2024-03-13] MEDS: SIMVASTATIN 10 MG TABLET PO (21:59)
[2024-03-13] MEDS: ENOXAPARIN 80 MG/0.8 ML SYRINGE SUB-Q (22:07)
[2024-03-14] VITALS (13 sets, daily range): BP systolic 120–150; BP diastolic 63–70; PULSE 73–111; RESP 16–18; TEMP 36.4–37.2; O2SAT 95–100
[2024-03-14] MEDS: AMPICILLIN SULB 3 GM/NS 100 ML 3 GM/100 ML VIAL IVPB ×4 (06:06→23:19)
[2024-03-14] MEDS: METOPROLOL TARTRATE 12.5 MG TABLET PO ×4 (06:10→23:17)
[2024-03-14 07:07] LABS: Hematocrit 32.8 % (37.0-47.0); Hemoglobin 10.5 g/dL (12.0-15.0); Immature Platelet Fraction Pct 14.8 % (0.9-11.2); Mean Corpuscular Hemoglobin 32.9 pg (26-34); Mean Corpuscular Volume 102.8 fl (80-100); Mean Platelet Volume 13.5 fl (7.4-10.4); Platelet Count Result 133 k/mm3 (150-375); Red Blood Count 3.19 M/mm3 (4.2-5.4); Red Cell Distribution Width 13.2 % (11.5-14.5); White Blood Count 3.9 K/mm3 (4.5-10.0)
[2024-03-14 07:16] LABS: Alanine Aminotransferase 13 U/L (6-35); Albumin Level 2.9 g/dL (3.5-5.1); Alkaline Phosphatase 50 U/L (38-126); Anion Gap -4 mmol/L (4-12); Aspartate Amino Transferase 28 U/L (14-36); Bilirubin,Total 0.5 mg/dL (0.2-1.3); Blood Urea Nitrogen 13 mg/dL (7-17); Calcium 9.3 mg/dL (8.4-10.2); Carbon Dioxide 37 mmol/L (22-30); Chloride 103 mmol/L (98-107); Estimated CRCL calculation 36 ml/min; Estimated Glomerular Filt Rate 43; Glucose 84 mg/dL (65-110); Sodium 136 mmol/L (137-145)
[2024-03-14 07:24] LABS: INR 3.9; Prothrombin Time 38.7 Seconds (11.1-14.7)
[2024-03-14] MEDS: HYDROcodone/acetaminophen (*CRX) 5-325 MG TABLET 1 TAB PO (07:51)
[2024-03-14] MEDS: FUROSEMIDE INJ 40 MG/4 ML VIAL 20 MG IV PUSH (07:53)
[2024-03-14] MEDS: CHOLECALCIFEROL 1,000 UNITS TABLET 1000 UNITS PO (07:53)
[2024-03-14] MEDS: guaiFENesin/DEXTROMETHORPHAN 10 ML UDC PO (07:53)
[2024-03-14] MEDS: ENOXAPARIN 80 MG/0.8 ML SYRINGE SUB-Q ×2 (07:53→20:55)
[2024-03-14] MEDS: PANTOPRAZOLE 40 MG TABLET PO (07:53)
[2024-03-14] MEDS: guaiFENesin 12 HR 600 MG TABCR 1200 MG PO ×2 (07:54→20:55)
[2024-03-14] MEDS: methiMAzole 5 MG TAB PO (07:54)
[2024-03-14] MEDS: VENLAFAXINE HCL XR 75 MG CAP.ER.24H 150 MG PO (07:54)
[2024-03-14] MEDS: CYANOCOBALAMIN 1,000 MCG TABLET 1000 MCG PO (07:54)
[2024-03-14] MEDS: CINACALCET PO (07:54)
[2024-03-14] MEDS: GABAPENTIN 300 MG CAPSULE PO ×2 (07:54→20:55)
[2024-03-14 08:22] LABS: Glucose Point of Care 104 mg/dl (65-105)
[2024-03-14] MEDS: IRON SUCROSE COMPLEX IVPB (08:43)
[2024-03-14] MEDS: [UNRECOGNIZED DRUG - OTHER] IVPB (08:43)
--- NOTE | 2024-03-14 12:37 | P.PNIM_ITS ---
Progress Note: A&P Assessment and Plan (1) Mechanical heart valve present: Code(s): Z95.2 - Presence of prosthetic heart valve Status: Acute Assessment and Plan: Audible mechanical heart valve. INR subtherapeutic for several days, 1.5, 1.4, 1 today. Next of Kin, PCP manages INR and warfarin doses for her. Next of Kin, Anshul coordinates with the office. The last 2 weeks before admission she was taking 6 mg thursday-, 5mg thursday, sat, sun. Generally has INR checks ever 2 weeks Goal INR 2.5-3.5 with her mechanical valve. Izzy reports 9mg daily is a higher dose than she has needed previously --Started a heparin drip with a bolus for subtherapeutic INR --Follow CBC since trending down but may be dilutional. Stable overnight --Warfarin 8mg<9mg daily --Daily INR, closer to goal --Coordinate INR checks & follow up plan with PCP's office, Dr. Sanjeev Rosenberg 03/07 1.5 03/08 Warfarin 6mg 03/09 1.4 Warfarin 6mg 03/10 1 Warfarin 8mg 03/11 1.7 Warfarin 9mg 03/12 2.1 & 2.2 Warfarin 9mg (lab said it was likely run twice for a precision check) 03/14: * 3.9 - Will hold tonight's dose. * Continue to trend daily INR's * Therapeutically dosed Lovenox is discontinued at this time as pt has been receiving it as a bridge. (2) Palpitations: Code(s): R00.2 - Palpitations Status: Acute Assessment and Plan: - Likely due to PAF with RVR. - Better after hydration and resuming home meds. 03/14/24 * Rate now controlled significantly better. * Continue Telemetry. * Continue to monitor. (3) Acute kidney injury: Code(s): N17.9 - Acute kidney failure, unspecified Status: Acute Assessment and Plan: Ddx pre-renal vs poor PO intake vs meds vs other. s/p 500 bolus with tachycardia --Resumed lasix --Creatinine stable 03/14/24: * Continue Lasix as ordered * Creatinine today 1.2, at baseline. * Continue to trend and monitor. (4) HTN (hypertension): Qualifiers: Hypertension type: primary hypertension Qualified Code(s): I10 - Essential (primary) hypertension Code(s): I10 - Essential (primary) hypertension Status: Acute Assessment and Plan: - Appears well controlled. - Continue metoprolol, changed from XL to IR for titration - Follow VS 03/14/24: * Continuing to trend and monitor. Stable (5) Hyperlipidemia: Qualifiers: Hyperlipidemia type: mixed hyperlipidemia Qualified Code(s): E78.2 - Mixed hyperlipidemia Code(s): E78.5 - Hyperlipidemia, unspecified Status: Acute Assessment and Plan: - continue statin. (6) Shortness of breath: Code(s): R06.02 - Shortness of breath Status: Acute Assessment and Plan: Mildly tachypneic. Not obviously overloaded on exam, likely 2/2 pneumonia --Started heparin drip, if not resolved consider a CT r/o PE, but is on warfarin chronically for mechanical heart valve --Treatment of pneumonia and heart failure, rate control afib --PEP therapy for airway clearance 03/14/24: * Continue Unasyn for underlying cause of PNA. * Wean oxygen for sats >90%. Nursing order placed. * Continue to trend. (7) Anemia: Code(s): D64.9 - Anemia, unspecified Status: Acute Assessment and Plan: Blood count trending down since admission but may be dilutional 14.2>11.1 Iron panel showing iron deficiency anemia, Total Iron and Tsat low. B12 636. LDH 245 --iron sucrose 300mg x3 doses --Follow CBC --If downtrending would need GI consult on chronic anticoagulation 03/14/24: * Hgb further declined today to 10.5. * Small drop, continue to monitor. * Pt just finished her third dose of Venofer. * Occult blood ordered from stool. * Consider GI consult if further declination as she is on chronic anticoagulation. * Pt's INR today is 3.9. Her dose of Coumadin for tonight is held and will need restarted tomorrow if applicable. In addition, the pt's Therapeutically dosed bridge Lovenox is discontinued today. * Monitor for any s/s of acute bleeding. (8) Heart failure, diastolic, acute on chronic: Code(s): I50.33 - Acute on chronic diastolic (congestive) heart failure Status: Acute Assessment and Plan: 6/17/24 Echo: TDS. EF 45%, biatrial enlargement, suspect (YADIRA 1.4 cm2), mod MR, mild-mod TR. s/p 500ml fluid bolus, now back on IV lasix NT-proBNP 10,000 Resume lasix, 20mg IV daily & increase as able TTE 03/14/24: * Chronic in nature. * Appears euvolemic. * Continue Lasix (9) Pneumonia: Code(s): J18.9 - Pneumonia, unspecified organism Status: Acute Assessment and Plan: Hospital associated pneumonia. Chest x-ray showed possible RLL pneumonia. Has crackles on exam. Intermittent fevers. Resolved today after starting unasyn. On room air --Started Unasyn, change to augmentin if improving --If new oxygen requirements, broaden to Cefepime/Vanc/Flagyl --Also has a sore throat, checking strep culture. Chlorseptic drops & tylenol prn --Urine for strep pneumo --Follow up chest x-ray if new oxygen requirement or not resolving --Staph screen. Can broaden to Cefepime/Vanc if worsening --Sputum culture if able to collect. Would only use to guide treatment if not improving with current antibiotics 03/14/24: * Continue Unasyn. Could likely switch to oral Augmentin tomorrow. (10) Atrial fibrillation with RVR: Code(s): I48.91 - Unspecified atrial fibrillation Status: Acute Assessment and Plan: Home metoprolol ER 25mg daily Resting HR 70s-90s, 100-130's with activity on 03/10. Rate controlled with increased dose of metoprolol and a 500ml fluid bolus - Change Metoprolol ER 25mg daily to metoprolol tartrate 12.5mg q6 and titrate. 5mg IV metoprolol --INR goal as noted for mechanical heart valve. INR can be affected by antibiotics --Cardiology consulted, appreciate recommendations Time Spent With Patient Time with patient: 15 - 25 minutes Subjective Date/time seen: 03/14/24 7829 Interval history: Pt was examined at the bedside today in interval assessment. She is sitting up at the bedside in no acute distress. She states today, I feel like I am actually breathing better! She is encouraged with her progress and believes the CPT machine is helping her breathe. She is not expectorating. No new complaints or symptoms to report. VSS and labs stable. Review of Systems Review of Systems: All systems reviewed & are unremarkable except as noted in HPI and below Exam Narrative: General: NAD, sitting at the bedside. HEENT: Atraumatic, PERRL, moist mucus membrane, anicteric. NECK: No JVD. HEART: irregular, NL S1/S2, no m,r,g,h LUNGS: RLL crackles Abdomen: Soft, non-tender, non-distended, BS present x4 quads.. Extremities: Acyanotic, no edema. Skin: Warm and dry. No wounds. Neuro: No focal neuro deficits noted. Psych: Pleasant and co-operative. A/O x4. Objective Data Vital Signs Vital Signs: Vital Signs - 24 hr 03/13/24 15:08 03/13/24 15:55 03/13/24 16:00 Temperature 98.1 F Pulse Rate 91 92 Respiratory Rate 18 Blood Pressure 115/65 Pulse Oximetry 95 88 L Oxygen Delivery Nasal Cannula Oxygen Flow Rate 2 Fraction of Inspired Oxygen 03/13/24 17:39 03/13/24 20:00 03/13/24 20:44 Temperature 99.5 F Pulse Rate 92 86 92 Respiratory Rate 16 Blood Pressure 114/73 Pulse Oximetry 100 Oxygen Delivery Oxygen Flow Rate Fraction of Inspired Oxygen 03/14/24 00:00 03/14/24 04:00 03/14/24 06:10 Temperature Pulse Rate 91 83 91 Respiratory Rate Blood Pressure Pulse Oximetry Oxygen Delivery Oxygen Flow Rate Fraction of Inspired Oxygen 03/14/24 06:21 03/14/24 08:00 03/14/24 09:28 Temperature 98.7 F Pulse Rate 91 Respiratory Rate 18 Blood Pressure 120/63 Pulse Oximetry 98 98 95 Oxygen Delivery Nasal Cannula Nasal Cannula Oxygen Flow Rate 2 2 Fraction of Inspired Oxygen 8 03/14/24 11:37 Temperature Pulse Rate 111 H Respiratory Rate Blood Pressure Pulse Oximetry Oxygen Delivery Oxygen Flow Rate Fraction of Inspired Oxygen Intake/Output Intake/Output: Intake & Output 03/11/24 03/12/24 03/13/24 03/14/24 23:59 23:59 23:59 23:59 Intake Total 2394.2 2039.4 1696.6 700 Output Total 700 1650 2400 550 Balance 1694.2 389.4 -703.4 150 Meds/Results Medications: Active Medications Generic Name Dose Route Start Last Admin Trade Name Freq PRN Reason Stop Dose Admin Acetaminophen 1,000 mg 03/10/24 10:04 03/11/24 00:10 Acetaminophen 500 Mg Tablet PO 1,000 mg Q6H PRN Administration Mild Pain (1-3) or Fever Hydrocodone Bitart/Acetaminophen 1 tab 03/08/24 17:21 03/14/24 07:51 Hydrocodone/Acetaminophen (*Crx) 5-325 Mg Tablet PO 1 tab Q6H PRN Administration Pain Rated 4-6 Albuterol 2 puff 03/08/24 17:21 Albuterol Sulfate (*Sp) Aerosol 1 Puff INHALATION QID PRN Shortness Of Breath Alprazolam 0.25 mg 03/08/24 17:21 03/13/24 21:59 Alprazolam (*Crx) 0.25 Mg Tablet PO 0.25 mg HS PRN Administration Anxiety Benzocaine 1 lozenge 03/10/24 18:17 03/11/24 12:36 Benzocaine/Menthol (*Bkc) 18 Ea Lozenge PO 1 lozenge PRN PRN Administration Sore Throat Cyanocobalamin 1,000 mcg 03/09/24 09:00 03/14/24 07:54 Cyanocobalamin 1,000 Mcg Tablet PO 1,000 mcg DAILY IAN Administration Diclofenac Sodium 1 applic 03/10/24 10:04 03/10/24 12:24 Diclofenac Sodium 1% 100 Gm Gel (*Bkc) TOPICAL 1 applic QID PRN Administration joint pain Enoxaparin Sodium 80 mg 03/13/24 21:50 03/14/24 07:53 Enoxaparin 80 Mg/0.8 Ml Syringe SUB-Q 80 mg Q12HR IAN Administration Furosemide 20 mg 03/12/24 09:00 03/14/24 07:53 Furosemide Inj 40 Mg/4 Ml Vial IV PUSH 20 mg DAILY IAN Administration Gabapentin 300 mg 03/08/24 21:00 03/14/24 07:54 Gabapentin 300 Mg Capsule PO 300 mg Q12HR IAN Administration Guaifenesin 1,200 mg 03/13/24 12:50 03/14/24 07:54 Guaifenesin 12 Hr 600 Mg Tabcr PO 1,200 mg Q12HR IAN Administration Guaifenesin/Dextromethorphan 10 ml 03/11/24 23:14 03/14/24 07:53 Guaifenesin/Dextromethorphan 10 Ml Udc PO 10 ml Q4H PRN Administration Cough Hydromorphone HCl 0.2 mg 03/10/24 12:48 Hydromorphone Hcl Inj (*Crx) 1 Mg/Ml Syr IV PUSH Q6H PRN Pain Rated 7-10 Ampicillin Sodium/Sulbactam Sodium 3 gm in 100 mls @ 200 mls/hr 03/11/24 11:25 03/14/24 11:38 Unasyn 3 Gm/Ns 100 Ml IVPB 200 mls/hr Q6HR IAN Administration Methimazole 5 mg 03/09/24 09:00 03/14/24 07:54 Methimazole 5 Mg Tab PO 5 mg DAILY IAN Administration Metoprolol Tartrate 12.5 mg 03/10/24 07:35 03/14/24 11:37 Metoprolol Tartrate 12.5 Mg Tablet PO 12.5 mg Q6HR IAN Administration Cinacalcet 15 Mg 0 each 03/10/24 09:00 03/14/24 07:54 Tablet PO 04/09/24 08:59 1 each DAILY IAN Administration Pantoprazole Sodium 40 mg 03/09/24 09:00 03/14/24 07:53 Pantoprazole 40 Mg Tablet PO 40 mg QAM IAN Administration Potassium Chloride 10 meq 03/08/24 21:00 03/13/24 21:59 Potassium Chloride 10 Meq Er Tablet PO 10 meq HS IAN Administration Simvastatin 10 mg 03/08/24 21:00 03/13/24 21:59 Simvastatin 10 Mg Tablet PO 10 mg HS IAN Administration Venlafaxine HCl 150 mg 03/09/24 09:00 03/14/24 07:54 Venlafaxine Hcl Xr 75 Mg Cap.Er.24h PO 150 mg DAILY IAN Administration Vitamin D 1,000 units 03/09/24 09:00 03/14/24 07:53 Cholecalciferol 1,000 Units Tablet PO 1,000 units DAILY IAN Administration Warfarin Sodium 9 mg 03/11/24 17:00 03/13/24 17:40 Warfarin (*Pbkc) 3 Mg Tablet PO 9 mg DAILY@1700 IAN Administration Radiology Results: ITS Impressions Chest X-Ray 03/10/24 15:01 IMPRESSION: Persisting cardiomegaly with possible left lower lobe infiltrate, as detailed above. Labs Labs: Laboratory Results - last 24 hr 03/13/24 03/13/24 03/13/24 13:24 16:50 18:38 WBC RBC Hgb Hct MCV MCH MCHC RDW Plt Count MPV % Immature Plt Fraction PT INR APTT 131.6 H 95.6 H Sodium Potassium Chloride Carbon Dioxide Anion Gap BUN Creatinine Estim Creat Clear Calc Estimated GFR Glucose POC Capillary Glucose 82 Calcium Total Bilirubin AST ALT Alkaline Phosphatase Total Protein Albumin 03/13/24 03/14/24 03/14/24 20:46 06:52 08:10 WBC 3.9 L RBC 3.19 L Hgb 10.5 L Hct 32.8 L MCV 102.8 H MCH 32.9 MCHC 32.0 RDW 13.2 Plt Count 133 L MPV 13.5 H % Immature Plt Fraction 14.8 H PT 38.7 H D INR 3.9 APTT Sodium 136 L Potassium 4.0 Chloride 103 Carbon Dioxide 37 H Anion Gap -4 L BUN 13 Creatinine 1.20 H Estim Creat Clear Calc 36 Estimated GFR 43 L Glucose 84 POC Capillary Glucose 99 104 Calcium 9.3 Total Bilirubin 0.5 AST 28 ALT 13 Alkaline Phosphatase 50 Total Protein 6.0 L Albumin 2.9 L Quality VTE Prophylaxis VTE prophylaxis: pharmacologic ordered
[2024-03-14 12:48] LABS: Glucose Point of Care 103 mg/dl (65-105)
[2024-03-14 16:23] LABS: Glucose Point of Care 121 mg/dl (65-105)
[2024-03-14] MEDS: POTASSIUM CHLORIDE 10 MEQ ER TABLET PO (20:55)
[2024-03-14] MEDS: SIMVASTATIN 10 MG TABLET PO (20:55)
[2024-03-15] VITALS (13 sets, daily range): BP systolic 111–132; BP diastolic 54–81; PULSE 77–92; RESP 12–14; TEMP 36–36.9; O2SAT 94–100
--- OUTSIDE RECORDS SUMMARY | 2024-03-15 00:46 | XMS_ITS | Clinical Summary ---
Author Organization [facility] [employer] Address [address] [place] [address] Care Team Providers Care Chief Accounting Officer Name Role Phone Juan Pablo Dominguez MD Primary Care Provider Unavailabl e Source Comments [facility] [employer],non-owned Affiliates and Associated Physician Practices is amultiple site organization consisting of ambulatory clinics and hospital sitesin [place], [place], [place] and [place]. This disclosure is being madepursuant to the Care Everywhere program and may not contain all information available regarding this patient. Last updated 17.[employer] [facility] Allergies No known active allergies Medications * Be aware that medications may not be up to date on this document. Alwaysverify current medications with the patient. Medication Sig Dispensed Refills Start Date End Date Status amiodarone (CORDARONE) 200 MG tablet Take 100 mg by mouth once daily Active warfarin (COUMADIN) 5 MG tablet Take 5 mg by mouth Activ e atorvastatin (LIPITOR) 10 MG tablet Take 10 mg by mouth at bedtime Active venlafaxine XR 24hr (EFFEXOR XR) 75 MG capsule Take 150 mg by mouth daily with breakfast Active HYDROcodone-acetami nophen (NORCO) 10-325 MG tablet Take 2 tablets by mouth every 8 hours as needed for Pain Active ferrous sulfate 325 (65 FE) MG tablet Take 325 mg by mouth once daily Active gabapentin (NEURONTIN) 300 MG capsule Take 300 mg by mouth 2 times daily Active omeprazole EC (PRILOSEC OTC) 20 MG tablet Take 20 mg by mouth daily before breakfast Active Albuterol Sulfate, sensor, 108 (90 Base) MCG/ACT AEPB Active ALBUTEROL SULFATE HFA IN Inhale 90 mcg by mouth 4 times daily as needed (SOB) Active lisinopril (PRINIVIL; ZESTRIL) 2.5 MG tablet Take 2.5 mg by mouth once daily Active docusate sodium (COLACE) 100 MG capsule Take 2 (two) capsules by mouth 2 times daily 08/11/2020 Active polyethylene glycol 3350 (MIRALAX) 17 g packet Take 17 (seventeen) g by mouth 2 times daily as needed for Constipation 08/11/2020 Active senna (SENOKOT EXTRA STRENGTH) 17.2 MG Take 17.2 mg by mouth 2 times daily 08/11/2020 Active Active Problems Problem Noted Date Diagnosed Date S/P AVR (aortic valve replacement) 08/09/2020 Elevated troponin 08/09/2020 Dizziness 08/08/2020 Memory impairment 08/08/2020 Social History Tobacco Use Types Packs/Day Years Used Date Smoking Tobacco: Never Smokeless Tobacco: Never Sex and Gender Information Value Date Recorded Sex Assigned at Not on file Gender Identity Not on file Sexual Orientation Not on file Last Filed Vital Signs Vital Sign Reading Time Taken Comments Blood Pressure 136/67 08/11/2020 2:33 PM CDT Pulse 67 08/11/2020 2:33 PM CDT Temperature 36.7 ??C (98 ??F) 08/11/2020 2:33 PM CDT Respiratory Rate 18 08/11/2020 2:33 PM CDT Oxygen Saturation 95% 08/11/2020 2:33 PM CDT Inhaled Oxygen Concentration - - Weight 94.9 kg (209 lb 4.8 oz) 08/09/2020 3:48 A M CDT Height 165.1 cm (5' 5 ) 08/09/2020 3:48 AM CDT Body Mass Index 34.83 08/09/2020 3:48 AM CDT Plan of Treatment Health Maintenance Due Date Last Done Comments BONE DENSITY TESTING 1944 DTAP/TDAP/TD VACCINES (1 - Tdap) 05/23/1963 ZOSTER VACCINE (1 of 2) 1994 PNEUMOCOCCAL VACCINE 65+ (1 of 1 - PCV) 2009 Respiratory Syncytial Virus (RSV) Vaccine Pt: or over 60 yrs (1 - 1-dose 75+ series) 05/23/2019 DEPRESSION SCREENING 03/09/2023 MEDICARE AWV ? CALENDAR YEAR 2023 COVID-19 VACCINE ( - season) 2023 08/29/2021, 02/23/2021, 06/01/2020, Additional history exists INFLUENZA VACCINE (#1) 2023 9, 12/03/2017, 12/25/2016, Additional history exists HEPATITIS B VACCINE Aged Out No longe r eligible based on patient's age to complete this topic HIB VACCINE Aged Out No longer eligi ble based on patient's age to complete this topic HPV VACCINE Aged Out No longer eligi ble based on patient's age to complete this topic MENINGOCOCCAL VACCINE Aged Out No claudette davian eligible based on patient's age to complete this topic Advance Directives * Full Code (Latest Code Status on File) Date Activated Date Inactivated Comments 08/09/2020 4:06 AM 08/11/2020 4:47 PM Care Teams Chief Accounting Officer Relationship Specialty Start Date End Date Juan Pablo Dominguez MD PCP - General Family Medicine 08/09/20
--- OUTSIDE RECORDS SUMMARY | 2024-03-15 00:46 | XMS_ITS | Encounter Summary ---
Author Organization [facility] Health Address [address] [place] [address] [place] [address] Care Team Providers Care Axminster Weaver Name Role Phone Juan Pablo Dominguez MD Primary Care Provider Unavailabl e Reason for Visit * Auth/Cert Specialty Diagnoses / Procedures Referred By Ian malagon Referred To Contact Diagnoses Aneurysm Referral ID Status Reason Start Date Expiration Date Visits Re quested Visits Authorized [id number] 1 1 Encounter Details Date Type Department Care Team (Latest Contact Info) Description 08/09/2020 3:42 AM CDT - 08/11/2020 3:42 PM CDT Hospital Encounter [facility] [place] [address] [place] [address] Odette Rowland MD [address] [place] [address] Neel Paulino DO [address] [place] [address] Hospitalist Discharge Disposition: Half-Way Facility Social History Tobacco Use Types Packs/Day Years Used Date Smoking Tobacco: Never Smokeless Tobacco: Never Sex and Gender Information Value Date Recorded Sex Assigned at Not on file Gender Identity Not on file Sexual Orientation Not on file documented as of this encounter Last Filed Vital Signs Vital Sign Reading [...] Mass Index 34.83 08/09/2020 3:48 AM CDT documented in this encounter Functional Status Functional Status Response Date of Assess ment Is person deaf or have serious hearing difficult y? No 08/09/2020 Is person blind or have serious difficulty seein g? No 08/09/2020 Does person have serious dif ficulty walking/climbing stairs? No 08/09/2020 Does person have difficulty dressing/bathing? No 08/09/2020 Does person have difficulty doing errands alone? No 08/09/2020 Cognitive Status Response Date of Assessm ent Does person have difficulty concentrating/remembering/making decisions? No 08/09/2020 documented as of this encounter Discharge Summaries * Neel Paulino DO - 08/11/2020 12:54 PM CDT Images from the original note were not included. Hospitalist Discharge Summary Patient ID: Ana Maria Bobo. female. [id number]. [id number] MERRY: [id number] Admit date: 08/09/2020 3:42 AM Discharge date: 08/11/20 Admitting Physician: Neel Paulino DO Attending Physician: Neel Paulino DO Primary Care Physician: Juan Pablo Dominguez MD Discharge Physician: Neel Paulino DO Discharged Condition: Stable Indication for Admission: No chief complaint on file. Reason for hospitalization: near syncope Discharge Diagnosis: MCA aneurysm Discharge Disposition: [facility] Follow up Instructions: PCP Sepsis Statement: Hospital Course: 75 year old female presented with past medical history of??hyperl ipidemia, GERD, depression, status post aortic valve replacement.?Who initially presented to [facility] for headaches, dizziness. ??Patient apparently had stroke-like symptoms about 3 days ago, when she felt near syncopal, had to sit down but since then has had frontal headaches,??associated with unstable gait. 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 ??Workup also revealed of initial troponin of 0.038, but initial EKG was unremarkable, however she stayed in the ER for approximately 28 hr, and did have some shortness of breath on ambulation to the bathroom, and a repeat EKG showed flipped T-waves in the precordial leads, biphasic T-waves in leads 3 and 4, repeat troponin was 0.086 after 6 hr.?She has a history of mechanical aortic valve, that was placed in 2003, and is on Coumadin since, and was found to have an INR 1.2. Awake alert, very pleasant, talkative Odalys hong d/c'd MCA aneurysm MRI -No acute infarct??only ??Moderate chronic small vessel white matter change -??Dr. Munoz??was consulted, -angiogram shows small saccular aneurysm originating from the right MCA bifurcation which measures approximately 3.5 x 3.2 mm in size and has a 2.2 mm wide neck. ??-Observation only ??Headaches -??p.r.n. meds added, patient did have response to morphine and Zofran at outside hospital. ??Elevated troponins -due to EKG changes, Cardiology has been consulted. ??History of mechanical aortic valve, subtherapeutic INR on presentation Lovenox to bridge coumadin which been subtherapeutic --ordered INR for a.m., ??Cardiology consulted, no further treatments ??VTE prophylaxis: ??Heparin GI prophylaxis:?Not indicated CODE STATUS: Full Surrogate decision-maker:?Disp: [facility]/P MCA aneurysm MRI -No acute infarct??only ??Moderate chronic small vessel white matter change -angiogram shows small saccular aneurysm originating from the right MCA bifurcation which measures approximately 3.5 x 3.2 mm in size and has a 2.2 mm wide neck. ? Headaches -? Elevated troponins 2/2 -type 2 IA demand ischemia -due to EKG changes, Cardiology has been consulted. ?? History of mechanical aortic valve, subtherapeutic INR on presentation Discharge Exam: BP 129/71 Pulse 69 Temp 97 ??F (36.1 ??C) (Oral) Resp 16 Ht 1.651 m (5' 5 ) Wt 94.9 kg (209 lb 4.8 oz) SpO2 91% BMI 34.83 kg/m2 General: No acute distress, speaking in full sentences, no use of accessory muscles HEENT: Pupils equal and reactive to light and accommodation, oropharynx is clear Neck: Supple, no lymphadenopathy, no JVD Lungs: Clear to auscultation bilaterally Cardiovascular: Regular rate and rhythm with normal S1 and S2 Abdomen: Soft, nontender, nondistended, normoactive bowel sounds Extremities: No cyanosis clubbing or edema Neuro: Nonfocal, A&O x3 Psych: Normal affect Consults: IP CONSULT TO NEUROLOGY IP CONSULT TO CARDIOLOGY IP CONSULT FOR ADVANCE DIRECTIVES IP CONSULT TO RESPIRATORY Code Status: Full Code Significant Diagnostic Studies: Recent Labs Lab Units 08/11/20 0614 08/10/20 0557 SODIUM mmol/L 140 139 POTASSIUM mmol/L 4.5 4.4 CHLORIDE mmol/L 107 107 CO2 mmol/L 25 26 BUN mg/dL 23* 17 CREATININE mg/dL 1.03 1.15* GLUCOSE mg/dL 75 85 CALCIUM mg/dL 10.0 10.1 Recent Labs Lab Units 08/11/20 0614 08/10/20 0557 WBC x10E9/L 4.9 4.1* RBC x10E12/L 3.38* 3.71* HGB gm/dL 11.1* 12.1 HCT % 34.6* 38.0 MCV fl 102.4* 102.4* MCH pg 32.8 32.6 MCHC gm/dL 32.1 31.8 MPV fl 12.0 11.9 No results for input(s): CK, CKTOTAL, CKMB, CKMBUL, CKMBNGML, TROPONIN, TROPONINI, TROPONINT in thelast 168 hours. No results for input(s): CHOLESTEROL, TRIGLYCERIDE, HDL, LDL, NONHDL in the last 168 hours. No results for input(s): HGBA1C, A1C, OMINLXTNO8I, EAG in the last 168 hours. Recent Labs Lab Units 08/10/20 0557 AST U/L 19 ALT U/L 12 Recent Labs Lab Units 08/11/20 0614 08/10/20 0557 08/09/20 0946 INR 1.4* 1.3* 1.2* No results for input(s): FIO2, PH, PCO2, BE, HCO3, PO2, O2SAT in the last 168 hours. No results for input(s): LACTICACID in the last 168 hours. Invalid input(s): PROCT Radiology Reports : MRI BRAIN FOR STROKE Result Date: 08/09/2020 No acute infarct Moderate chronic small vessel white matter change *Reading Radiologist: Eb Estrella on 08/09/2020 at 2:10 PM Discharge Medications: Medication List START taking these medications docusate sodium 100 MG capsule Commonly known as: Colace Take 2 (two) capsules by mouth 2 times daily enoxaparin 80 MG/0.8ML injection Commonly known as: Lovenox Inject 90 (ninety) mg subcutaneously once daily for 5 days polyethylene glycol 3350 17 g packet Commonly known as: Miralax Take 17 (seventeen) g by mouth 2 times daily as needed for Constipation Sennosides 17.2 MG Commonly known as: Senokot Extra Strength Take 17.2 mg by mouth 2 times daily CHANGE how you take these medications warfarin 5 MG tablet Commonly known as: Coumadin What changed: Another medication with the same name was removed. Continue taking this medication, and follow the directions you see here. CONTINUE taking these medications * Albuterol Sulfate (sensor) 108 (90 Base) MCG/ACT Aepb * ALBUTEROL SULFATE HFA IN amiodarone 200 MG tablet Commonly known as: Cordarone atorvastatin 10 MG tablet Commonly known as: Lipitor ferrous sulfate 325 (65 FE) MG tablet gabapentin 300 MG capsule Commonly known as: Neurontin HYDROcodone-acetaminophen 10-325 MG tablet Commonly known as: Isabella lisinopril 2.5 MG tablet Commonly known as: Prinivil; Zestril omeprazole EC 20 MG tablet Commonly known as: PriLOSEC OTC venlafaxine XR 24hr 75 MG capsule Commonly known as: Effexor XR * This list has 2 medication(s) that are the same as other medications prescribed for you. Read thedirections carefully, and ask your doctor or other care provider to review them with you. STOP taking these medications fluticasone propionate 50 MCG/ACT nasal spray Commonly known as: Flonase Where to Get Your Medications These medications were sent to [facility] [phone] [phone] [facility] [place] [address] ?? enoxaparin 80 MG/0.8ML injection Information about where to get these medications is not yet available Ask your nurse or doctor about these medications ?? docusate sodium 100 MG capsule ?? polyethylene glycol 3350 17 g packet ?? Sennosides 17.2 MG Medications Discontinued during this hospitalization: Medications Discontinued During This Encounter Medication Reason ??? amiodarone (Cordarone) tablet 200 mg ??? polyethylene glycol 3350 (Miralax) packet 17 g Patient Instructions: Activity: as tolerated. Diet: DIET CARDIAC Therapy Ordered: No therapy plan of the specified type found. Follow-up appointments: No follow-ups on file. Time Spent on Discharge greater than 30 minutes. [facility] Provider Update ?(Yes/No/Not applicable) Neel Paulino DO 08/11/2020 12:54 PM documented in this encounter Medications at Time of Discharge Medication Sig Dispensed Refills Start Date End Date ALBUTEROL SULFATE HFA IN Inhale 90 mcg by mouth 4 times daily as needed (SOB) Albuterol Sulfate, sensor, 108 (90 Base) MCG/ACT AEPB amiodarone (CORDARONE) 200 MG tablet Take 100 mg by mouth once daily atorvastatin (LIPITOR) 10 MG tablet Take 10 mg by mouth at bedtime docusate sodium (COLACE) 100 MG capsule Take 2 (two) capsules by mouth 2 times daily 08/11/2020 ferrous sulfate 325 (65 FE) MG tablet Take 325 mg by mouth once daily gabapentin (NEURONTIN) 300 MG capsule Take 300 mg by mouth 2 times daily HYDROcodone-acetami nophen (NORCO) 10-325 MG tablet Take 2 tablets by mouth every 8 hours as needed for Pain lisinopril (PRINIVIL; ZESTRIL) 2.5 MG tablet Take 2.5 mg by mouth once daily omeprazole EC (PRILOSEC OTC) 20 MG tablet Take 20 mg by mouth daily before breakfast polyethylene glycol 3350 (MIRALAX) 17 g packet Take 17 (seventeen) g by mouth 2 times daily as needed for Constipation 08/11/2020 senna (SENOKOT EXTRA STRENGTH) 17.2 MG Take 17.2 mg by mouth 2 times daily 08/11/2020 venlafaxine XR 24hr (EFFEXOR XR) 75 MG capsule Take 150 mg by mouth daily with breakfast warfarin (COUMADIN) 5 MG tablet Take 5 mg by mouth enoxaparin (LOVENOX) 80 MG/0.8ML injection Inject 90 (ninety) mg subcutaneously once daily for 5 days 10 syringe 08/11/2020 08/16/2020 documented as of this encounter Progress Notes * Marian Ca RN - 08/11/2020 11:49 AM CDT [employer] set up for 12:30. Trip # [id number] * Bebe Warren, PharmD - 08/11/2020 8:25 AM CDT Warfarin per Pharmacy Protocol S/O Ana Maria Bobo is on warfarin for mechanical aortic valve. Adverse events related to anticoagulation: None Home warfarin regimen: 6mg daily Current Medications 0.9% NaCl injection 3 mL, Intracatheter, q8h amiodarone (Cordarone) tablet 100 mg, Oral, QDAY atorvastatin (Lipitor) tablet 10 mg, Oral, AT BEDTIME enoxaparin (Lovenox) injection 90 mg, Subcutaneous, q12h ferrous sulfate tablet 325 mg, Oral, QDAY fluticasone propionate (Flonase) nasal spray 2 spray, Each Nostril, QDAY gabapentin (Neurontin) capsule 300 mg, Oral, BID heparinized saline 2 units/ml infusion, Intra-arterial, intra-Procedure multiple iopamidol (Isovue 300) 61 % contrast, Intra-arterial, intra-Procedure multiple lidocaine (Xylocaine) 1 % injection, Infiltration, intra-Procedure multiple lisinopril (Prinivil;Zestril) tablet 2.5 mg, Oral, QDAY pantoprazole EC (Protonix) tablet 40 mg, Oral, QDAY venlafaxine XR 24hr (Effexor XR) capsule 150 mg, Oral, QDAY WITH BREAKFAST warfarin (Coumadin) dose per pharmacy [facility], Other, QDay 1700 warfarin (Coumadin) tablet 9 mg, Oral, once warfarin [COMPLETED] warfarin (Coumadin) tablet 9 mg, Oral, once warfarin Diet Order DIET CARDIAC Labs Recent Labs Component Name 08/11/20 0614 08/10/20 0557 08/09/20 0946 PT 16.3* 15.4* 14.5 INR 1.4* 1.3* 1.2* No results for input(s): PTT in the last 97480 hours. Recent Labs Component Name 08/11/20 0614 08/10/20 0557 HGB 11.1* 12.1 HCT 34.6* 38.0 PLTCOUNT 191 209 Recent Labs Component Name 08/10/20 0557 ALBUMIN 3.3 ALT 12 AST 19 TBIL 0.4 TPROT 6.0* No results for input(s): DDIMERMGL in the last 73243 hours. Warfarin Dose History Date INR Dose (mg) Comments 08/09 1.2 8 mg ordered but patient refused 6 1.3 9 mg Assessment Goal INR: 2.5 - 3.5. Today's INR is Subtherapeutic at 1.4 Risk factors for bleeding: age >75 y/o Pertinent home medications: yes amiodarone, omeprazole, venlafaxine Pertinent medications during hospitalization: home meds resumed except pantoprazole for omeprazole Plan 1. Warfarin dose: 9 mg X 1 2. Daily INR 3. Bridging therapy with Lovenox 90mg BID 4. Warfarin education to be completed Bebe Warren PharmD 08/11/2020 8:25 AM * Lina Mendez RN - 08/11/2020 2:29 AM CDT Problem: Fall Risk Goal: Fall risk and fall related injury risk are minimized (interventions related to the fall risk can be found in the flowsheet documentation) Outcome: Shanice Garcia has sustained no fall related injuries. Problem: Pain/Discomfort Goal: Patient verbalizes acceptable level of pain relief and ability to engage in desired activity. Outcome: Progressing Ana Maria is able to perform ADLs without pain. Problem: Neurological Deficit Goal: Neurological status is stable or improving Outcome: Progressing Ana Maria has experienced no neuro changes. * Neel Paulino, - 08/10/2020 8:41 PM CDT Hospitalist Service Progress Note Chief Complaint : No chief complaint on file. Subjective: 75 year old??female, with a past medical history of??hyperl ipidemia, GERD, depression, status postaortic valve replacement.?Who initially presented to [facility] forheadaches, dizziness. ??Patient apparently had stroke-like symptoms about 3 days ago, when she feltnear syncopal, had to sit down but since then has had frontal headaches,??associated with unstable gait. 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 ??Workup also revealed of initial troponin of 0.038, but initial EKG was unremarkable, however she stayed in the ER for approximately 28 hr, and did have some shortness of breath on ambulation to the bathroom, and a repeat EKG showed flipped T-waves in the precordial leads, biphasic T-waves in leads 3 and 4, repeat troponin was 0.086 after 6 hr.?She has a history of mechanical aortic valve, that was placed in 2003, and is on Coumadin since, and was found to have an INR 1.2. Awake alert, very pleasant, talkative Odalys hong d/c'd PT and OT following MRI head - negative ROS: negative otherwise noted in HPI Assessment / Plan: MCA aneurysm MRI -No acute infarct only ??Moderate chronic small vessel white matter change -??Dr. Munoz??was consulted, -angiogram shows small saccular aneurysm originating from the right MCA bifurcation which measures approximately 3.5 x 3.2 mm in size and has a 2.2 mm wide neck. ??-Observation only Headaches -??p.r.n. meds added, patient did have response to morphine and Zofran at outside hospital. ?? Elevated troponins -due to EKG changes, Cardiology has been consulted. ?? History of mechanical aortic valve, subtherapeutic INR on presentation Lovenox to bridge coumadin which been subtherapeutic --ordered INR for a.m., ??Cardiology consulted, no further treatments ?? VTE prophylaxis: ??Heparin GI prophylaxis:?Not indicated CODE STATUS: Full Surrogate decision-maker: ?Disp: SNF Objective: BP 144/73 Pulse 65 Temp 97.3 ??F (36.3 ??C) (Oral) Resp 18 Ht 1.651 m (5' 5 ) Wt 94.9 kg (209 lb 4.8 oz) SpO2 95% BMI 34.83 kg/m2 Vital Signs Temp: 97.3 ??F (36.3 ??C) Temp src: Oral Pulse: 65 Resp: 18 BP: 144/73 Filed Wts: 08/09/20 0348 Weight: 94.9 kg (209 lb 4.8 oz) Physical Exam: General: No acute distress, speaking in full sentences HEENT: Pupils equal and reactive to light and accommodation, oropharynx is clear Neck: Supple, no lymphadenopathy, no JVD Lungs: Decreased breath sounds, bilaterally, no rales, wheezing Cardiovascular: Regular rate and rhythm with normal S1 and S2 Abdomen: Soft, nontender, nondistended, normoactive bowel sounds Extremities: No cyanosis clubbing or edema Neuro: Nonfocal, A&O x3 Skin: no lesion, intact MEDICATIONS FOR CURRENT ENCOUNTER: ?? SCHEDULED MEDICATIONS: ?? 0.9% NaCl injection 3 mL, Intracatheter, q8h ?? amiodarone (Cordarone) tablet 100 mg, Oral, QDAY ?? atorvastatin (Lipitor) tablet 10 mg, Oral, AT BEDTIME ?? enoxaparin (Lovenox) injection 90 mg, Subcutaneous, q12h ?? ferrous sulfate tablet 325 mg, Oral, QDAY ?? fluticasone propionate (Flonase) nasal spray 2 spray, Each Nostril, QDAY ?? gabapentin (Neurontin) capsule 300 mg, Oral, BID ?? heparinized saline 2 units/ml infusion, Intra-arterial, intra-Procedure multiple ?? iopamidol (Isovue 300) 61 % contrast, Intra-arterial, intra-Procedure multiple ?? lidocaine (Xylocaine) 1 % injection, Infiltration, intra-Procedure multiple ?? lisinopril (Prinivil;Zestril) tablet 2.5 mg, Oral, QDAY ?? pantoprazole EC (Protonix) tablet 40 mg, Oral, QDAY ?? venlafaxine XR 24hr (Effexor XR) capsule 150 mg, Oral, QDAY WITH BREAKFAST ?? warfarin (Coumadin) dose per pharmacy [facility] [place], Other, QDay 1700 ?? [COMPLETED] morphine injection 4 mg, Intravenous, Once ?? [COMPLETED] warfarin (Coumadin) tablet 9 mg, Oral, once warfarin ?? [] warfarin (Coumadin) tablet 8 mg, Oral, once warfarin ?? CONTINUOUS MEDICATIONS: ?? niCARdipine (Cardene) 20 mg in 0.9% NaCl 200 mL infusion, Intravenous, Continuous ?? PRN MEDICATIONS: ?? Or ?? 0.9% NaCl injection 1-10 mL, Intracatheter, PRN ?? acetaminophen (Tylenol) tablet 650 mg, Oral, q4h PRN ?? acetaminophen (Tylenol) tablet 650 mg, Oral, q6h PRN ?? albuterol HFA (Proventil;Ventolin;Proair) 108 (90 Base) MCG/ACT inhaler 2 puff, Inhalation, 4X/day PRN ?? yuxcccxf-aysnioeqn-zwocibmbxiy (Maalox;Mylanta) suspension 20 mL, Oral, q6h PRN ?? HYDROcodone-acetaminophen (Isabella) 10-325 MG tablet 2 tablet, Oral, q8h PRN ?? ondansetron (disintegrating) (Zofran ODT) tablet 4 mg, Oral, q6h PRN ?? ondansetron (Zofran) injection 4 mg, Intravenous, q6h PRN ?? polyethylene glycol 3350 (Miralax) packet 17 g, Oral, BID PRN ?? saline nasal spray ([place]; Baby [place]) 0.65 % nasal spray 1 spray, Each Nostril, PRN ?? throat lozenge 1 lozenge, Oral, q2h PRN LAB: Recent Labs Lab Units 08/10/20 0557 SODIUM mmol/L 139 POTASSIUM mmol/L 4.4 CHLORIDE mmol/L 107 CO2 mmol/L 26 BUN mg/dL 17 CREATININE mg/dL 1.15* GLUCOSE mg/dL 85 CALCIUM mg/dL 10.1 Recent Labs Lab Units 08/10/20 0557 WBC x10E9/L 4.1* RBC x10E12/L 3.71* HGB gm/dL 12.1 HCT % 38.0 MCV fl 102.4* MCH pg 32.6 MCHC gm/dL 31.8 MPV fl 11.9 No results for input(s): CK, CKTOTAL, CKMB, CKMBUL, CKMBNGML, TROPONIN, TROPONINI, TROPONINT in thelast 168 hours. No results for input(s): CHOLESTEROL, TRIGLYCERIDE, HDL, LDL, NONHDL in the last 168 hours. No results for input(s): HGBA1C, A1C, STVOFQDQU2P, EAG in the last 168 hours. Recent Labs Lab Units 08/10/20 0557 AST U/L 19 ALT U/L 12 Recent Labs Lab Units 08/10/20 0557 08/09/20 0946 INR 1.3* 1.2* No results for input(s): FIO2, PH, PCO2, BE, HCO3, PO2, O2SAT in the last 168 hours. No results for input(s): LACTICACID in the last 168 hours. Invalid input(s): PROCT IMAGING: MRI BRAIN FOR STROKE Result Date: 08/09/2020 No acute infarct Moderate chronic small vessel white matter change *Reading Radiologist: Eb Estrella on 08/09/2020 at 2:10 PM [facility] Provider Update ?(Yes/No/Not applicable) Neel Paulino DO 08/10/2020 8:41 PM * Natalee Holly RN - 08/10/2020 2:13 PM CDT Case Management Progress Note Anticipated level of care at discharge: Home, Home Health Care, Halfway - Skilled Facility Discharge Plan: spoke with pt & she is agreeable with snf at [facility] snf. Insurance will have to approve this. Submitted to insurance this afternoon. Awaiting insurance determination. Anticipate answer today. Will continue to follow. 1545 received snf auth Basic Needs Assessment (BNA) Score: 7 Anticipated Discharge Date: Anticipated Discharge Date: 08/11/20 Transportation at Discharge: Family Transportation to MD:Drives self Equipment at Home: Equipment At Home: Cane-Straight Additional DME needed: Hunger Screening: Within the past 12 months the food we bought just didn't last and we didn't have money to get more.: Never true Within the past 12 months we worried whether our food would run out before we got money to buy more: Never true Food Bank Resources Provided: Not offered to the patient Medication affordability concerns: no Auth Number (if required) [place]: [id number] DME: Medications: Transportation: Name: Natalee Holly RN Phone: # [phone] * Deb Hawley, OT - 08/10/2020 1:40 PM CDT Occupational Therapy Initial Evaluation OT orders received. Chart reviewed for diagnosis and medical systems review. Nursing consented for OT. Explained purpose of OT and patient consented to participate in therapy. PPE worn by staff: gloves;mask - surgical SUBJECTIVE: I think my family thinks it best to go somewhere - referring to continued inpatient therapy services. Pt's goal for therapy: Patient would like to return to [facility] Home Situation: Type of Residence: Private Residence Lives with:: Alone Home Structure: One Story Steps to Enter: No Ramp: Yes Primary Bedroom: First Floor Primary Bathroom: First Floor Bathroom : Walk in Shower Equipment At Home: Cane-Straight Prior Level of Function: Mobility: Ambulate-In Community;Ambulate-In Home ;With Assistive Device;Driving Fallen Within 6 Mos: No Have Help at Home?: Yes, there is help at home now How often is assistance provided?: sons assist with yardwork Level of Help Sufficient?: Yes Pain Assessment: Pain Rating Score #: 0 OBJECTIVE: Cognition: Orientation Level: Oriented X4 Level of Consciousness-Adult: Alert;Eyes Open Spontaneously Cognition: Attention/concentration-normal for age Attention Span: Attends with cues to redirect UE Assessment: bilat UE AROM WNL Coord: intact w/ use of cell phone or TV controls Sensation: intact ADLs (Based on observation and clinical judgement): Feeding: Set-up;Modified Castro - seated EOB w/ lunch meal Oral Facial Hygiene: Set-up;Stand By Assist Upper Body Dressing: Stand By Assist Lower Body Dressing: Minimal Assistance;Stand By Assist Toileting: Stand By Assist fatiques easily w/ minimal amount of physical exertion following toileting and standing at sink forhand washing. Verbal cues for improved attn to safety and technique w/ dynamic standing balance tasks. Transfers: Gait belt - handhold assist to/from bathroom Rolling: Complete Castro Supine to Sit: Stand By Assist Sit to Supine: Stand By Assist Sit to Stand: Minimal Assistance;Stand By Assist Stand to Sit: Stand By Assist Chair to Bed: Minimal Assistance to Right Bed to Chair: Minimal Assistance to Left Toilet Transfers: Stand By Assist;Requires Verbal Cues for Safety;Requires Verbal Cues for Technique Activity Tolerance/Vitals: SpO2: 94 % Pulse: 65 BP: 129/71 Pre BP: 175/90 post activity w/ minimal exertion Pt educated in OT plan of care, fall precautions, and benefits of participating in ADL tasks. Refer to the Plan of Care for OT goals. Please refer to Filed Flowsheet OT Evaluation for further details. INTERVENTION/ASSESSMENT: She requires minimal assist w/ functional self care with dynamic standing balance challenges. Overall decreased strength / endurance and appears to fatique easily w/ minimal exertion. Call light and phone in reach with bed alarm activated. All lines, monitors, IV's, equipment in place and intact pre and post visit. RN, , notified of patient's performance/location end of session. Educated patient/family in Safety, fall precautions and benefits of OOB activity. --Problem list: Decreased strength, decreased ROM, decreased endurance, decreased balance, impairedfunctional mobility, --Functional limitation: Decreased independence with transfers; decreased ability to perform ADLs, decreased UE strength, decreased safety with functional mobility. --Rationale for therapy: Patient will benefit from OT to address the above issues. Patient will be seen for: ADL retraining, functional transfers, balance, endurance, exercise. RECOMMENDATIONS/PLAN: Patient would benefit from further skilled OT services upon discharge from acute care hospital at the next level of care to maximize I with ADLs, functional mobility, strength, endurance, and balance. Pt is not safe to complete ADLs or mobility alone. If this is the last OT visit, this note serves as the discharge summary. Deb Hawley, OT * Viki Velasquez RN - 08/10/2020 11:35 AM CDT RN informed care team during rounds that the patient refused Coumadin and Lovenox combination therapy this morning. Patient stated, I don't want to bleed to that seems like a lot . Met at bedside with patient, , and Dorene Pharmacist and discussed the importance of anticoagulation therapy and educated the patient regarding combination therapy until she is therapeutic. Patient pleasantly agreed once the medication therapy was explained. It was a pleasure being a part of your care. Please call with any concerns. Viki Velasquez RN, Hospitalist Nurse [phone] * Natalee Solis APRN-JULIAN - 08/10/2020 9:49 AM CDT [facility] [place] [facility] Stroke Progress Note Hospital Day: 1 Subjective: Ana Maria Bobo is a 75 year old female transferred from [facility] with headache and dizziness. According to patient, she developed sudden onset of headache, shortness of breath, and had nearsyncopal event on Thursday. 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 She was then transferred to [facility] further management. She continues to have a headache, which she does not normally get headaches. She has a history of mechanical aortic valve, that was placed in 2003, and is on Coumadin since, and was found to have an INR 1.2. She denies any focal neurological deficits today. Her headache has i mproved. Cerebral angiogram today. ?? No new events noted in last 24 hrs. No new complaints per patient. PMHx, SH, FH, and ROS are otherwise unchanged since last neurology note. Objective Objective: Vitals: Temp Min: 97.5 ??F (36.4 ??C) Max: 98.1 ??F (36.7 ??C), Pulse Min: 60 Max: 87, Resp Min: 12 Max: 18, BP Min: 102/51 Max: 180/80 No intake or output data in the 24 hours ending 08/10/20 0914 Current Medications: Current Facility-Administered Medications Medication ??? 0.9% NaCl injection 3 mL And ??? 0.9% NaCl injection 1-10 mL ??? acetaminophen (Tylenol) tablet 650 mg ??? acetaminophen (Tylenol) tablet 650 mg ??? albuterol HFA (Proventil;Ventolin;Proair) 108 (90 Base) MCG/ACT inhaler 2 puff ??? tnzyivoz-udpfipjnt-almfmpfbqdk (Maalox;Mylanta) suspension 20 mL ??? amiodarone (Cordarone) tablet 100 mg ??? atorvastatin (Lipitor) tablet 10 mg ??? enoxaparin (Lovenox) injection 90 mg ??? ferrous sulfate tablet 325 mg ??? fluticasone propionate (Flonase) nasal spray 2 spray ??? gabapentin (Neurontin) capsule 300 mg ??? HYDROcodone-acetaminophen (Isabella) 10-325 MG tablet 2 tablet ??? lisinopril (Prinivil;Zestril) tablet 2.5 mg ??? niCARdipine (Cardene) 20 mg in 0.9% NaCl 200 mL infusion ??? ondansetron (disintegrating) (Zofran ODT) tablet 4 mg Or ??? ondansetron (Zofran) injection 4 mg ??? pantoprazole EC (Protonix) tablet 40 mg ??? polyethylene glycol 3350 (Miralax) packet 17 g ??? saline nasal spray (Swink; Baby [place]) 0.65 % nasal spray 1 spray ??? throat lozenge 1 lozenge ??? venlafaxine XR 24hr (Effexor XR) capsule 150 mg ??? warfarin (Coumadin) dose per pharmacy MISC ??? warfarin (Coumadin) tablet 9 mg Lab Review Recent Labs Component Name 08/10/20 0557 SODIUM 139 POTASSIUM 4.4 CHLORIDE 107 CO2 26 BUN 17 CREATININE 1.15* GLUCOSE 85 CALCIUM 10.1 Recent Labs Component Name 08/10/20 0557 WBC 4.1* HGB 12.1 HCT 38.0 PLTCOUNT 209 No results for input(s): CHOL, TRIG, HDL, LDLCALC, LDLDIRECT in the last 67771 hours. Examination : General : Patient is comfortably sitting in bed. HEENT: PERRLA, EOMI, Atraumatic , Normocephalic Extremities: No pallor, cyanosis or edema seen. Neurological exam : Mental status: Alert and oriented to time, place and person. Speech and language intact. No Aphasiaand No dysarthria noted. Naming, repeating and comprehension intact. Able to follow 3 step command.Insight, Memory, Attention span normal CN: PERRLA, VA intact,VF intact, EOMI, facial sensation intact bilaterally, facial strength symmetric, hearing intact to deyvi finger tapping, Palate elevates midline, deyvi shoulder shrug normal, tongueprotrudes Midline Motor: normal strength in bilateral upper and lower extremities proximally and distally, tone normal, no abnormal movements seen, no muscle atrophy seen Sensory: equal to touch, pin prick, temp and vibration in bilateral upper and lower extremities Cerebellar : Normal Finger nose finger and Heel knee sheen testing bilaterally. Normal Rapid alternating movements with finger and toe tapping Reflexes: symmetric in bilaterally in upper and lower extremities Gait and station: Not tested due to patient's condition. Imaging MRI BRAIN FOR STROKE Result Date: 08/09/2020 No acute infarct Moderate chronic small vessel white matter change *Reading Radiologist: Eb Estrella on 08/09/2020 at 2:10 PM Assessment: 1) Headache 2) Right MCA aneurysm- incidental finding. Comment: Headache is better. Concerns for sentinel SAH but MRI brain negative. Headache, possibly related to migraine. Cerebral angiogram today reveals there is a small saccular aneurysm originating from the right MCA bifurcation which measures approximately 3.5 x 3.2 mm in size and has a 2.2 mm wide neck. No intervention indicated. Plan: No further stroke work up. Right MCA aneurysm- observation for now. PT/OT/ST and rehab eval Ok to discharge from vascular neurology stand point. Thanks for Involving Neurology Stroke Team in this patient's care Natalee GRAFF. * Mane Munoz MD - 08/10/2020 9:44 AM CDT Diagnosis: [place]clap headache Plan: Cerebral angiogram Indication: Evaluate for vascular malformation, concern for SAH Sedation Plan: Mallampati Score: II Sedation: Fentanyl 1% plain lidocaine Expected Level: Minimal Sedation Indication: Sedation is required to allow for performance of procedure. Consent: Risks, benefits and alternatives were discussed with patient and consent for procedure wasobtained. PO Intake: Clear Liquids > 2 hours ASA Class: Class 2 - Mild Systemic Disease,No Acute Problems, No Functional Limitations. 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 * Vivian Boothe, PT - 08/10/2020 9:34 AM CDT Physical Therapy Evaluation. PT orders received, chart reviewed for diagnosis and medical systems review.. Nursing consents for PT. Explained purpose of PT and patient consented to participate in therapy. PPE worn by staff: gloves;mask - surgical SUBJECTIVE: Pt agreeable to OOB mobility. Denies DSOUZA pain this date. Pt currently on O2 reports she does not use O2 at home. O2 sat at 95% on RA, RN ok'd ambulating on RA. Home Situation: Type of Residence: Private Residence Lives with:: Alone Home Structure: One Story Equipment At Home: Cane-Straight Prior Level of Functioning: Mobility: Ambulate-In Community;Ambulate-In Home ;With Assistive Device;Driving Fallen Within 6 Mos: No Have Help at Home?: Yes, there is help at home now How often is assistance provided?: sons assist with yardwork Activity at Home: Active;Driving Oxygen at Home: No Pain Assessment: Pain Rating Score #: 0 Patient/family stated goal: Pt would like to ambulate mod I with WW at D/C. OBJECTIVE: Cognition: Orientation Level: Oriented X4 Cognition: Follows Commands-Consistent;Attention/concentration-normal for age;Processing-Appropriate Level of Consciousness-Adult: Alert Participation: Active Participation Precautions: FALL ROM and Strength: AROM - Right Upper Extremity: Within Functional Limits Strength - Right Upper Extremity: Within Functional Limits AROM - Left Upper Extremity: Within Functional Limits Strength - Left Upper Extremity: Within Functional Limits AROM - Right Lower Extremity: Within Functional Limits Strength - Right Lower Extremity: Within Functional Limits AROM - Left Lower Extremity: Within Functional Limits Strength - Left Lower Extremity: Within Functional Limits Bed Mobility: Supine to Sit: Stand By Assist Transfers: Sit to Stand: Minimal Assistance;Stand By Assist Stand to Sit: Stand By Assist Mobility: Distance Ambulated: 100 FEET Ambulation: Assistive Device: Gait Belt;Cane-Straight Ambulation: Level of Assistance: Minimum Assistance;Stand By Assist Ambulation: Gait Deviations: Denise - Decreased;Heel Strike - Decreased;Increased Trunk Flexion;Step Length - Decreased Activity Tolerance/Oxygen Requirements and Vitals: Activity Tolerance: Requires rest breaks SpO2: 95 % Pulse: 72 BP: 163/77 (post-amb; 110/55 pre-amb in supine) ASSESSMENT: BUE and BLE WFL in AROM and strength 07/11. In mobility, pt needs min to SBA with functional mobility. Min A more in hallway with distraction and increased stimulus. Performs toilet transfer with SBA for safety. Pt denies dizziness, lightheadedness, SOB, CP or visual disturbances. She reports she just feels off in her head. BP increases above parameters, RN notified. Call light and phone in reach with chair alarm activated. All lines, monitors, IV's, equipment in place and intact pre and post visit. RNBeena, notified of patient's performance/location end of session. Pt educated in PT plan of care, fall precautions, and benefits of OOB activity. Problem list: decreased strength, decreased balance, decreased endurance, decreased ROM, decreased coordination Functional limitations: Decreased independence with ambulation/transfers, decreased safety with functional mobility. Rationale for therapy: Patient will benefit from PT to address the above issues. Refer to Plan of Care for PT goals. Please refer to Filed Flowsheet PT Evaluation for further details. RECOMMENDATIONS/PLAN: Continue skilled PT for gait training, LE strengthening, transfer training and safety awareness in order to optimize maximal function. Pt would benefit from continued PT at D/C for balance activities and endurance training. Pt is not safe to return home alone at this time, needs 24/ supervision/assist. If this is the last PT visit, this note serves as the discharge summary. [id number] * Amalia Mackenzie, COOK STARCH - 08/10/2020 9:15 AM CDT Speech Pathology: Order received, chart reviewed. Attempted to see pt for ST evaluation, but leaving floor for IVR. ST will return at a later time or date. * Ana Maria Torres [facility] - 08/10/2020 7:25 AM CDT Warfarin per Pharmacy Protocol S/O Ana Maria Bobo is on warfarin for mechanical aortic valve. Adverse events related to anticoagulation: None Home warfarin regimen: 6mg daily Current Medications 0.9% NaCl injection 3 mL, Intracatheter, q8h amiodarone (Cordarone) tablet 100 mg, Oral, QDAY atorvastatin (Lipitor) tablet 10 mg, Oral, AT BEDTIME enoxaparin (Lovenox) injection 90 mg, Subcutaneous, q12h ferrous sulfate tablet 325 mg, Oral, QDAY fluticasone propionate (Flonase) nasal spray 2 spray, Each Nostril, QDAY gabapentin (Neurontin) capsule 300 mg, Oral, BID lisinopril (Prinivil;Zestril) tablet 2.5 mg, Oral, QDAY pantoprazole EC (Protonix) tablet 40 mg, Oral, QDAY venlafaxine XR 24hr (Effexor XR) capsule 150 mg, Oral, QDAY WITH BREAKFAST warfarin (Coumadin) dose per pharmacy [facility], Other, QDay 1700 warfarin (Coumadin) tablet 9 mg, Oral, once warfarin [COMPLETED] morphine injection 4 mg, Intravenous, Once [COMPLETED] perflutren Lipid Microsphere (Definity) injection SUSP 1.5 mL, Intravenous, intra-Procedure once [] warfarin (Coumadin) tablet 8 mg, Oral, once warfarin Diet Order DIET CARDIAC Labs Recent Labs Component Name 08/10/20 0557 08/09/20 0946 PT 15.4* 14.5 INR 1.3* 1.2* No results for input(s): PTT in the last 61380 hours. Recent Labs Component Name 08/10/20 0557 HGB 12.1 HCT 38.0 PLTCOUNT 209 Recent Labs Component Name 08/10/20 0557 ALBUMIN 3.3 ALT 12 AST 19 TBIL 0.4 TPROT 6.0* No results for input(s): DDIMERMGL in the last 33662 hours. Warfarin Dose History Date INR Dose (mg) Comments 08/09 1.2 8mg 08/10 1.3 9mg Assessment Goal INR: 2.5 - 3.5. Today's INR is Subtherapeutic Risk factors for bleeding: age >75 y/o Pertinent home medications: yes amiodarone, omeprazole, venlafaxine Pertinent medications during hospitalization: home meds resumed except pantoprazole for omeprazole Plan 1. Warfarin dose: 9mg X 1 2. Daily INR 3. Bridging therapy with Lovenox 90mg BID 4. Warfarin education to be completed Ana Maria Torres RPH 08/10/2020 7:25 AM * Lola Castaneda - 08/10/2020 5:14 AM CDT Shift Summary VS: VSS. BP managed throughout the night via cardine drip titration. Pt on 2L NC Mentation: AxO x4 Activity: SBA EENT: Wears glasses Cardiovascular/Telemetry: SR GI/: Continent of bowel and bladder Lines/Drains: Right peripheral IV infusing starting at 2029. Left peripheral IV saline locked. Skin/Wound: Bruising. Redness at old IV site. Communication with Provider: Jwd Dr Kashif lamasing inadequate pain control. Pain orders received. Progress with Rehab or, Discharge Goals: Angio today Patient Education Done: Yes, please see Patient Education Activity * Lola Castaneda - 08/10/2020 12:52 AM CDT Problem: Fall Risk Goal: Fall risk and fall related injury risk are minimized (interventions related to the fall risk can be found in the flowsheet documentation) Outcome: Progressing Note: Ana Maria will remain free of falls during this shift. Problem: Pain/Discomfort Goal: Patient exhibits reduced pain/discomfort as evidenced by pain scores Outcome: Progressing Note: Educated patient on reporting pain. Frequently assessing pain. Goal: Patient uses pharmacological and non-pharmacological pain management strategies. Outcome: Progressing Note: Educated patient on pain meds. Educated on rest, reposition, and distraction. Goal: Patient verbalizes acceptable level of pain relief and ability to engage in desired activity. Outcome: Progressing Note: Treating pain as indicated. Frequently reassessing pain. Problem: Neurological Deficit Goal: Neurological status is stable or improving Outcome: Progressing Note: Neuro status stable. * Beena Brooks RN - 08/09/2020 4:08 PM CDT Problem: Fall Risk Goal: Fall risk and fall related injury risk are minimized (interventions related to the fall risk can be found in the flowsheet documentation) Outcome: Progressing Problem: Pain/Discomfort Goal: Patient exhibits reduced pain/discomfort as evidenced by pain scores Outcome: Progressing Problem: Neurological Deficit Goal: Neurological status is stable or improving Outcome: Progressing * Ana Maria Chance RDCS - 08/09/2020 3:20 PM CDT Echo with definity completed. 1. Prior to Administration: ?? Allergies reviewed for contraindications: no allergy contraindications, proceed with administration ?? Patient informed of risks and benefits of contrast: Yes 2. Post Note ?? Reaction to contrast: None * Natalee Holly RN - 08/09/2020 1:49 PM CDT Case Management Initial Assessment Case Management screen completed & Welcome Letter given. Anticipated level of care at discharge: Home, Home Health Care, Halfway - Skilled Facility Discharge Plans: snf vs home with hh. Pt lives alone in a mobile home. She hopes to return home butis agreeable with skilled rehab if needed. Her insurance would have to approve snf. She has been toa snf in [place] but doesn't remember the name of it. She gave permission to call family if needed. The best contact is Mik. Will continue to follow. Basic Needs Assessment (BNA) Score: 3 Met with patient Lives with: Alone Family Support (name and phone): Extended Emergency Contact Information Primary Emergency Contact: MIK OSBORNIrma Address: SISTER Relation: None Patient or customer assistance representative requests care coordination reach out to family or caregiver listed above regarding discharge planning and at time of discharge? Yes, [email or web address] Anticipated Discharge Date: 08/11/20 Prior Level of Functioning: independent, uses a cane, drives Anticipated level of care at discharge: Home, Home Health Care, Halfway - Skilled Facility Transportation at Discharge: Family Transportation to MD appointments: Drives self Equipment at Home: walker, cane Additional equipment needed at home but does not have: If no PCP, action taken: Pharmacy benefit: yes Medication affordability concerns: no Hunger Screening: Within the past 12 months the food we bought just didn't last and we didn't have money to get more.: Never true Within the past 12 months we worried whether our food would run out before we got money to buy more: Never true Food Bank Resources Provided: Not offered to the patient Carpenters Supervisor Referral: yes, SANDEEP Pantoja aware of referral If patient requires HHC at discharge, he/she requests: out of area Will continue to follow. For any questions or needs please contact: Family Protection Specialist Name/Phone number: Natalee Holly RN # [phone] * Ana Maria Torres [facility] - 08/09/2020 12:38 PM CDT Warfarin per Pharmacy Protocol S/O Ana Maria Bobo is on warfarin for mechanical aortic valve. Adverse events related to anticoagulation: None - Headache,may have SAH, doing MRI to determine Home warfarin regimen: 6mg daily Current Medications 0.9% NaCl injection 3 mL, Intracatheter, q8h warfarin (Coumadin) dose per pharmacy [facility]ISC, Other, QDay 1700 warfarin (Coumadin) tablet 8 mg, Oral, once warfarin Diet Order DIET NPO Except: NO EXCEPTIONS Labs Recent Labs Component Name 08/09/20 0946 PT 14.5 INR 1.2* No results for input(s): PTT in the last 46099 hours. No results for input(s): HGB, HCT, PLTCOUNT in the last 92815 hours. No results for input(s): ALBUMIN, ALT, AST, TBIL, TPROT, NTPROBNP in the last 99701 hours. No results for input(s): DDIMERMGL in the last 93819 hours. Warfarin Dose History Date INR Dose (mg) Comments 08/09 1.2 8mg Assessment Goal INR: 2.5 - 3.5. Today's INR is Subtherapeutic Risk factors for bleeding: age >75 y/o Pertinent home medications: yes amiodarone, omeprazole, venlafaxine Pertinent medications during hospitalization: none Plan 1. Warfarin dose: 8mg X 1 2. Daily INR 3. Bridging therapy with N/A 4. Warfarin education to be completed Ana Maria Trores RPH 08/09/2020 12:38 PM * Amalia Mackenzie, MARYJO - 08/09/2020 11:59 AM CDT Speech Pathology: Order received, chart reviewed. Noted pt is NPO prior to angio today. ST stopped by room to attemptcognitive linguistic screener, and pt is requesting RN to help her back to bed. ST will return tomorrow 08/10/20. * Deb Hawley, OT - 08/09/2020 11:42 AM CDT OT order received. RN requests to hold. Will re-attempt at a later time/date. Thank you. Deb Hawley, OT 08/09/2020 11:42 AM * Vivian Boothe, PT - 08/09/2020 10:41 AM CDT 10:41 AM: Orders received. Chart reviewed. Attempted PT eval, however pt reports 9/10 DSOUZA pain and BP elevated. RN requests to hold. Will re-attempt at a later time/date. Thank you. 14:01 PM: Attempted PT eval for second time, however BP remains elevated at 146/71. Per chart review SBP goal <140. Will re-attempt tomorrow on 08/10. Thank you. * Neel Paulino, DO - 08/09/2020 7:41 AM CDT Hospitalist Service Progress Note Chief Complaint : No chief complaint on file. Subjective: 75 year old female, with a past medical history of hyperl ipidemia, GERD, depression, status post aortic valve replacement. Who initially presented to [facility] at [facility] for headaches, dizziness. Patient apparently had stroke-like symptoms about 3 days ago, when she felt near [facility], had to sit down but since then has had frontal headaches, associated with unstable gait. 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 Workup also revealed of initial troponin of 0.038, but initial EKG was unremarkable, however she stayed in the ER for approximately 28 hr, and did have some shortness of breath on ambulationto the bathroom, and a repeat EKG showed flipped T-waves in the precordial leads, biphasic T-waves in leads 3 and 4, repeat troponin was 0.086 after 6 hr. She has a history of mechanical aortic valve, that was placed in 2003, and is on Coumadin since, and was found to have an INR 1.2. Awake alert, very pleasant Remains on Cardene drip MRI head today- negative ROS: negative otherwise noted in HPI Assessment / Plan: MCA aneurysm MRI -No acute infarct only ??Moderate chronic small vessel white matter change - Dr. Munoz was consulted, ?? Headaches - p.r.n. meds added, patient did have response to morphine and Zofran at outside hospital. ?? Elevated troponins -due to EKG changes, Cardiology has been consulted. ?? History of mechanical aortic valve, subtherapeutic INR on presentation Lovenox to bridge coumadin which been subtherapeutic --ordered INR for a.m., ??Cardiology consulted, no further treatments VTE prophylaxis: Heparin GI prophylaxis: Not indicated CODE STATUS: Full Surrogate decision-maker: Objective: BP 135/63 Pulse 68 Temp 97.5 ??F (36.4 ??C) (Oral) Resp 18 Ht 1.651 m (5' 5 ) Wt 94.9 kg (209 lb 4.8 oz) SpO2 92% BMI 34.83 kg/m2 Vital Signs Temp: 97.5 ??F (36.4 ??C) Temp src: Oral Pulse: 68 Resp: 18 BP: 135/63 Filed Wts: 08/09/20 0348 Weight: 94.9 kg (209 lb 4.8 oz) Physical Exam: General: No acute distress, speaking in full sentences HEENT: Pupils equal and reactive to light and accommodation, oropharynx is clear Neck: Supple, no lymphadenopathy, no JVD Lungs: Decreased breath sounds, bilaterally, no rales, wheezing Cardiovascular: Regular rate and rhythm with normal S1 and S2 Abdomen: Soft, nontender, nondistended, normoactive bowel sounds Extremities: No cyanosis clubbing or edema Neuro: Nonfocal, A&O x3 Skin: no lesion, intact MEDICATIONS FOR CURRENT ENCOUNTER: ?? SCHEDULED MEDICATIONS: ?? 0.9% NaCl injection 3 mL, Intracatheter, q8h ?? warfarin (Coumadin) dose per pharmacy [facility], Other, QDay 1700 ?? CONTINUOUS MEDICATIONS: ?? PRN MEDICATIONS: ?? Or ?? 0.9% NaCl injection 1-10 mL, Intracatheter, PRN ?? acetaminophen (Tylenol) tablet 650 mg, Oral, q4h PRN ?? acetaminophen (Tylenol) tablet 650 mg, Oral, q6h PRN ?? gwxclagx-oqffippeh-qjvimkgkwah (Maalox;Mylanta) suspension 20 mL, Oral, q6h PRN ?? ondansetron (disintegrating) (Zofran ODT) tablet 4 mg, Oral, q6h PRN ?? ondansetron (Zofran) injection 4 mg, Intravenous, q6h PRN ?? polyethylene glycol 3350 (Miralax) packet 17 g, Oral, QDAY PRN ?? saline nasal spray (Swink; Baby [place]) 0.65 % nasal spray 1 spray, Each Nostril, PRN ?? throat lozenge 1 lozenge, Oral, q2h PRN LAB: No results for input(s): SODIUM, POTASSIUM, CHLORIDE, CO2, BUN, CREATININE, GFR, GLUCOSE, CALCIUM, MAGNESIUM, PHOSPHORUS in the last 168 hours. Invalid input(s): AGAP, GFRNON No results for input(s): WBC, RBC, HGB, HCT, MCV, MCH, MCHC, PLT, RDW, MPV in the last 168 hours. No results for input(s): CK, CKTOTAL, CKMB, CKMBUL, CKMBNGML, TROPONIN, TROPONINI, TROPONINT in thelast 168 hours. No results for input(s): CHOLESTEROL, TRIGLYCERIDE, HDL, LDL, NONHDL in the last 168 hours. No results for input(s): HGBA1C, A1C, INBVTVBND7O, EAG in the last 168 hours. No results for input(s): AST, ALT in the last 168 hours. Invalid input(s): TOTALBILLIRUBIN, ALK No results for input(s): APT, INR, PTT in the last 168 hours. No results for input(s): FIO2, PH, PCO2, BE, HCO3, PO2, O2SAT in the last 168 hours. No results for input(s): LACTICACID in the last 168 hours. Invalid input(s): PROCT IMAGING: No results found. [facility] Provider Update ?(Yes/No/Not applicable) Neel Paulino DO 08/09/2020 7:41 AM * Stuart Ramos RN - 08/09/2020 6:00 AM CDT Problem: Fall Risk Goal: Fall risk and fall related injury risk are minimized (interventions related to the fall risk can be found in the flowsheet documentation) Outcome: Progressing documented in this encounter H&P Notes * Odette Rowland MD - 08/09/2020 4:06 AM CDT Hospitalist History and Physical MERRY: [facility]-[id number] Admission date: 08/09/2020 Reason for Admission: Aneurysm Assessment & Plan: MCA aneurysm - Dr. Munoz was consulted, Headaches - p.r.n. meds added, patient did have response to morphine and Zofran at outside hospital. Elevated troponins -due to EKG changes, Cardiology has been consulted. History of mechanical aortic valve, subtherapeutic INR on presentation - unclear if she got any bridging therapy at outside hospital -ordered INR for a.m., VTE prophylaxis: Heparin GI prophylaxis: Not indicated CODE STATUS: Full Surrogate decision-maker: History of present illness: Patient is a 75 year old female, with a past medical history of hyperl ipidemia, GERD, depression, status post aortic valve replacement. Who initially presented to [facility] for headaches, dizziness. Patient apparently had stroke-like symptoms about 3 days ago, when she felt near syncopal, had to sit down but since then has had frontal headaches, associated with unstable gait. 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 Workup also revealed of initial troponin of 0.038, but initial EKG was unremarkable, however she stayed in the ER for approximately 28 hr, and did have some shortness of breath on ambulation to the bathroom, and a repeat EKG showed flipped T-waves in the precordial leads, biphasic T-waves in leads 3 and 4, repeat troponin was 0.086 after 6 hr. She has a history of mechanical aortic valve, that was placed in 2003, and is on Coumadin since, and was found to have an INR 1.2. Patient denies headache, visual changes, neck pain or stiffness, dysphagia, nausea, vomiting, diarrhea, abdominal pain, chest pain, shortness of breath, cough, wheezing, fever, chills, night sweats, numbness or tingling in the arms or legs, lightheadedness, dizziness, syncope, rash, dysuria, frequency, recent travel, ill contacts exposure. Allergies No Known Allergies Medication List: Prior to Admission medications Not on File Past Medical History hyperl ipidemia, GERD, depression, status post aortic valve replacement. Past surgical history -history of ankle surgery History of hysterectomy Mechanical heart valve Social History Social History Socioeconomic History ??? Marital status: Spouse name: Not on file ??? Number of children: Not on file ??? Years of education: Not on file ??? Highest education level: Not on file Occupational History ??? Not on file Tobacco Use ??? Smoking status: Never Smoker ??? Smokeless tobacco: Never Used Substance and Sexual Activity ??? Alcohol use: Not on file ??? Drug use: Not on file ??? Sexual activity: Not on file Other Topics Concern ??? Not on file Social History Narrative ??? Not on file Family History Heart disease, Diabetes Review of Systems: A 14 point review of systems was taken and pertinent positive as per HPI. Physical Exam: No data found. General: No acute distress, speaking in full sentences, no use of accessory muscles HEENT: Pupils equal and reactive to light and accommodation, oropharynx is clear Neck: Supple, no lymphadenopathy, no JVD Lungs: Clear to auscultation bilaterally Cardiovascular: Regular rate and rhythm with normal S1 and S2 Abdomen: Soft, nontender, nondistended, normoactive bowel sounds Extremities: No cyanosis clubbing or edema Neuro: Nonfocal, A&O x3 Psych: Normal affect Intake/Output last 3 shifts: No intake/output data recorded. Labs: All labs have been reviewed from outside hospital, and are significant for In CV-102.8 Mon 0 percent-12.4 Calcium 10.8 Troponin 0.036 Blood glucose 44 Radiology Reports: No results found. Active Problems: Patient Active Problem List Diagnosis Date Noted ??? Dizziness 08/08/2020 Priority: Not Prioritized ??? Memory impairment 08/08/2020 Priority: Not Prioritized [facility] Provider Update ?(Yes/No/Not applicable) tali Rowland MD 08/09/2020 4:06 AM documented in this encounter Procedure Notes * Mane Munoz MD - 08/10/2020 10:02 AM CDTAssociated Order(s): IR CAROTID CEREBRAL ANGIOGRAM Procedure(s): IR CAROTID CEREBRAL ANGIOGRAM Pre-Procedure Diagnose(s): Intracranial aneurysm (HCC) Post-Procedure Diagnose(s): Intracranial aneurysm (HCC) PROCEDURE PERFORMED: DIAGNOSTIC CEREBRAL ANGIOGRAM DATE OF PROCEDURE: 08/10/2020 INDICATION: Evaluate for intracranial aneurysm, assess for need for surgical/endovascular management. PREVIOUS COMPARISON STUDIES: MRI brain SEDATION: No sedation was used. The patient was monitored for vitals signs and pulse ox throughout the procedure by a trained nurse specialist independent of those performing the procedure. CONTRAST USED: 75cc Isovue 300 FLUORO TIME: 2.2 minutes PROCEDURE PERFORMED BY: ATTENDING PHYSICIAN: MANE MUNOZ MD Consent for the procedure was obtained from the patient following a discussion of its technique, benefits, and risks, including stroke, transient neurological deficits, blood vessel injury, and bleeding. Following sterile preparation and draping, fluoroscopic localization of the femoral head for a femoral approach, and injection of buffered 1% lidocaine for local anesthesia, a right femoral artery puncture was performed with 21-gauge micropuncture needle. A 5 Wallisian sheath was inserted over a BrandShieldson wire and connected to a regulated pressurized infusion. A 5 Wallisian diagnostic catheter was advanced over the wire to the aortic arch and was used to selectthe following vessels: Right Common Carotid Left Common carotid Left vertebral Right Common femoral artery RIGHT COMMON CAROTID ARTERY RUN: DSA run was obtained in MICHAEL and lateral views. Right common carotid artery is unremarkable and patent. The right carotid bifurcation is widely patent and no underlying stenosis is seen. The right internal carotid artery is unremarkable in its cervical segment and otherwise is widely patent. Right external carotid artery is unremarkable and patent.The right internal carotid artery is unremarkable and patent in its cervical, petrous, cavernous and communicating segments. The right ICA bifurcates normally into the right MCA and the right BARRIE. The right M1 MCA is unremarkable. MCA bifurcation is patent. There is a small saccular aneurysm originating from the right MCA bifurcation which measures approximately 3.5 x 3.2 mm in size and has a 2.2 mm wide neck. Thedistal right MCA branches are unremarkable and opacifying well. The right A1 BARRIE and distal BARRIE branches are unremarkable. Opacification of the left BARRIE in its entirety is noted through the anterior communicating artery. LEFT COMMON CAROTID ARTERY RUN: DSA run was obtained in SYRIAC and lateral views. Left common carotid artery is unremarkable and patent. The left carotid bifurcation is widely patent and no underlying stenosis is seen. The left internal carotid artery is unremarkable in its cervical segment and otherwise is widely patent. Left external carotid artery is unremarkable and patent. The left internal carotid artery is unremarkable and is patent in its cervical, petrous, cavernous and communicating segments. The left ICA bifurcates normally into the left BARRIE and the left MCA. The left A1 BARRIE is hypoplastic. left M1 MCA is unremarkable. MCA bifurcation is patent. The distal left MCA branches are unremarkable and opacifying well. LEFT VERTEBRAL ARTERY RUN: Distal subtraction angiography run was obtained in AP, lateral views. The left vertebral artery is unremarkable and patent in its cervical and intra- cranial segment. Opacification of the basilar artery, bilateral superior cerebellar arteries as well as posterior cerebralarteries is noted and all appear unremarkable. Left PICA opacifies well and is unremarkable. RIGHT COMMON FEMORAL ARTERY RUN: Digital subtraction angiography run performed of the bifurcation of the common iliac artery from the common femoral artery sheath demonstrated a normal common femoralartery bifurcation with no dissection or filling defect. Arterial sheath was removed and hemostasis was obtained using Mynx closure device and manual compression. Patient tolerated the procedure well and had no immediate procedure related complications IMPRESSION: 1. There is a small saccular aneurysm originating from the right MCA bifurcation which measures approximately 3.5 x 3.2 mm in size and has a 2.2 mm wide neck. documented in this encounter Consult Notes * Scarlett Sales, CONTROL OPERATOR - 08/10/2020 2:47 PM CDT Social Work Progress Note Social work consult received. Patient is interested in SNF at [facility] ([phone]). Referral made. Spoke with Michael Garciaator at [facility] ([phone]) who has accepted patient. They will have bed available anytime over the weekend if stable to d/c. wireless sales manager received insurance auth. If patient d/c over the weekend, RN please do the followin. Please call report to [phone] 2. Please fax d/c orders to [phone]. Copy of d/c orders also need to be sent along with patient's chart. 3. Patient may be able to transport with family if functionally appropriate at time of DC. If needed, please call [facility] (previously known as [facility]) [phone] to arrange for ambulance transfer. Ambulance forms will need to be filled out. They can be found under the letters tab or in most pass-thrus. 4. Please call patient's family to notify of d/c time. 5. Please send paper chart with patient to bring to [place]. Any further questions over the weekend, please call the Safety Person to page the hand almond blancher Family Protection Specialist/heating worker. SANDEEP Louie LMSW ext [phone] Discharge Plan Disposition: [facility] Transportation (if ambulance rationale): Transportation at discharge: Family Anticipated Discharge Date: Anticipated Discharge Date: 08/11/20 Contacts: Extended Emergency Contact Information Primary Emergency Contact: MIK VIGIL Address: SISTER Relation: None Have they been contacted? Scarlett Sales LMSW * Yesica Calvillo - 08/10/2020 1:13 PM CDTAssociated Order(s): IP CONSULT FOR ADVANCE DIRECTIVES Attempted to visit yesterday. Found patient awake today. She is uninterested in completing a DPOA or advance directive. She says her children can make decisions as a group just like she and her siblings did for her mother. She talked about her eri and believes and was quite amicable, but uninterested in these documents. * Robin Pierre Jr., MD - 08/09/2020 1:21 PM CDT Consult -- Cardiology Patient's Primary Care Physician: Juan Pablo Dominguez MD Name: Ana Maria Bobo Age: [age] year old Race: white, Sex: female Chief Complaint/History of Present Illness Patient complains of: Headache Present to [facility] in [place], [place] complaining of headache. She had a near syncopal event onSaturday. She went to the emergency room on 08/08/2020 and was found to have a 5 mm saccular aneurysm in the right MCA on head CT. No availability at [place] or [facility] and transferred here. She is noted to have a mechanical aortic valve and and subtherapeutic INR and hence Cardiologyconsultation I have reviewed the medical, surgical, family, and social histories and they are significant for Mechanical AVR placed in 2003. She follows with [facility] cardiology over in [place] last visit was 07/31/2020was noted she has a [place] aortic valve hypertension obstructive sleep apnea compliant with CPAP She has had previous episodes of subtherapeutic INR back in June,. Per review of care everywhere she has a long history of dizziness hypertension and difficulty maintaining heart rate and therapeutic INR She had a nuclear stress test 12/14/2018 showed ejection fraction 62 percent no perfusion defect Echocardiogram 10/19/2018 showed normally functioning mechanical valve with a peak gradient of 40 mm of mercury mean gradient 24 mm of mercury valve area of 1.01 centimeter squared ejection fraction was measured at 53 percent. This was compared to previous echo a 2017 was noted the Ethan was slightly higher and there was now trivial AI Medications Prior to Admission Medication Sig Dispense Refill ??? ALBUTEROL SULFATE HFA IN Inhale 90 mcg by mouth 4 times daily as needed (SOB) ??? Albuterol Sulfate, sensor, 108 (90 Base) MCG/ACT AEPB ??? amiodarone (CORDARONE) 200 MG tablet Take 200 mg by mouth once daily ??? atorvastatin (LIPITOR) 10 MG tablet Take 10 mg by mouth at bedtime ??? ferrous sulfate 325 (65 FE) MG tablet Take 325 mg by mouth once daily ??? fluticasone propionate (FLONASE) 50 MCG/ACT nasal spray [place] 2 sprays into each nostril once daily ??? gabapentin (NEURONTIN) 300 MG capsule Take 300 mg by mouth 2 times daily ??? HYDROcodone-acetaminophen (NORCO) 10-325 MG tablet Take 2 tablets by mouth every 8 hours as needed for Pain ??? lisinopril (PRINIVIL; ZESTRIL) 2.5 MG tablet Take 2.5 mg by mouth once daily ??? omeprazole EC (PRILOSEC OTC) 20 MG tablet Take 20 mg by mouth daily before breakfast ??? venlafaxine XR 24hr (EFFEXOR XR) 75 MG capsule Take 150 mg by mouth daily with breakfast ??? warfarin (COUMADIN) 1 MG tablet Take 1 mg by mouth ??? warfarin (COUMADIN) 5 MG tablet Take 5 mg by mouth No Known Allergies No past medical history on file. No past surgical history on file. Social History: Social History Socioeconomic History ??? Marital status: Single Spouse name: Not on file ??? Number of children: Not on file ??? Years of education: Not on file ??? Highest education level: Not on file Occupational History ??? Not on file Tobacco Use ??? Smoking status: Never Smoker ??? Smokeless tobacco: Never Used Substance and Sexual Activity ??? Alcohol use: Not on file ??? Drug use: Not on file ??? Sexual activity: Not on file Other Topics Concern ??? Not on file Social History Narrative ??? Not on file Social Determinants of Health Financial Resource Strain: ??? Difficulty of Paying Living Expenses: Food Insecurity: ??? Worried About Running Out of Food in the Last Year: ??? Ran Out of Food in the Last Year: Transportation Needs: ??? Lack of Transportation (Medical): ??? Lack of Transportation (Non-Medical): Physical Activity: ??? Days of Exercise per Week: ??? Minutes of Exercise per Session: Stress: ??? Feeling of Stress : Social Connections: ??? Frequency of Communication with Friends and Family: ??? Frequency of Social Gatherings with Friends and Family: ??? Attends Advent Services: ??? Active Member of Clubs or Organizations: ??? Attends Club or Organization Meetings: ??? Marital Status: Intimate Partner Violence: ??? Fear of Current or Ex-Partner: ??? Emotionally Abused: ??? Physically Abused: ??? Sexually Abused: Familly History: No family history on file. Review of Systems A comprehensive review of systems was negative except as described in HPI. Otherwise, constitutional, HEENT, neck, endocrine, CV, pulmonary, GI, , neuro, derm, heme, MSK, extremities are all negative. Exam Vitals: 08/09/20 0348 08/09/20 0554 BP: (!) 180/80 135/63 Pulse: 67 68 Resp: 18 Temp: 97.5 ??F (36.4 ??C) SpO2: 91% 92% Weight: 209 lb 4.8 oz (94.9 kg) Height: 5' 5 (1.651 m) General -- Pleasant, NAD HEENT -- NC/AT, OP clear and moist, sclerae anicteric Neck -- supple, FROM, JVP normal, carotids 2+ without bruit CV -- regular, normal rate, no M/R/G Chest -- CTA and non-tender bilaterally Abdomen -- ND, soft, NT, no HSM, Ao not enlarged, no bruit Extremities -- no cyanosis, clubbing or edema Vascular -- 2+ extremities x 4 Neuro -- Alert and oriented x 4, automatic line set up mechanic and motor full and symmetric Derm -- no rash Data , No results for input(s): WBC, HGB, HCT, PLTCOUNT in the last 04835 hours. ,No results for input(s): SODIUM, POTASSIUM, CHLORIDE, CO2, BUN, CREATININE, GLUCOSE, CALCIUM, ALBUMIN, ALKPHOS, ALT, AST, TBIL, TPROT, EGFR in the last 10103 hours. , Lab results smartLinks are not currently available , No results for input(s): BNP in the last 40647 hours. Chest X-ray: EKG: Shows sinus rhythm rate of 66 first-degree AV block nonspecific IVCD QRS duration 144 Telemetry: Sinus with what appears like a bundle-branch block with artifact Echo: Ejection fraction 50-55 percent LVH septal dyssynergy most likely due to bundle-branch block mechanical aortic valve with mild stenosis and regurgitation Readmission Risk Score: The Basic Needs Assessment (BNA) total score for this patient was calculated at . Patients with BNAgreater than or equal to 10 are considered at high risk for readmission. Patient Active Problem List: Dizziness Memory impairment S/P AVR (aortic valve replacement) Elevated troponin Assessment/Plan 1. Mechanical aortic valve 2. LVH She is to keep her INR 2.5-3.5 with warfarin. Pharmacy has been consulted. Until INR over 2.5 wouldcover with Lovenox 1 milligram/kilogram unless these needs to be held for invasive procedures No further cardiac testing indicated at this time Will see p.r.n. Robin Pierre Jr., MD The above chart may have been completed partially or entirely using voice dictation software. The chart has been reviewed for discrepancies and software interpretation errors however the possibility exists that some unrecognized dictation-software related errors may remain. This note contains information and findings from prior encounters which remain the same for today???s encounter. I have reviewed and made updates where applicable. * Mane Munoz MD - 08/09/2020 9:39 AM CDTAssociated Order(s): IP CONSULT TO NEUROLOGY Stroke Neurology Consult Note Consult Date: 08/10/2020 Referring Physician: Neel Paulino, DO Reason for Consult I have been asked to see the patient in neurological consultation to render advice and opinion regarding aneurysm. History of Present Illness History was obtained from a review of the electronic record and discussion with the patient and family. Ana Maria Bobo is a 75 year old female with a past medical history of GERD, depression, and aorticvalve replacement transferred from [facility] with headache and dizziness. According to patient, she developed sudden onset of headache, shortness of breath, and had near syncopal event on Thursday. She was finally able to go to the ER yesterday due to not feeling well. 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 She was then transferred to [facility] for further management. She continues to have a headache, which she does not normally get headaches. Her pain today is 9/10. She also has neck pain, which is chronic. She takes tylenol PRN for pain. She is a non smoker. She has a history of mechanical aortic valve, that was placed in 2003, and is on Coumadin since, and was found to have an INR 1.2. She denies any focal neurological deficits today. Patient denies any personal or family history of subarachnoid hemorrhage. Patient denies any weakness or numbness in any extremities. Patient denies any speech or language trouble. Patient denies anydouble vision, vertigo or nausea currently.No Swallowing difficulty. Patient denies having stroke or TIA symptoms in the past. Patient denies any seizures or syncope. Past Medical History Past Medical History: Diagnosis Date ??? Diabetes 1985 No past surgical history on file. Medications ??? ALBUTEROL SULFATE HFA IN ??? Albuterol Sulfate, sensor, 108 (90 Base) MCG/ACT AEPB ??? amiodarone (CORDARONE) 200 MG tablet ??? atorvastatin (LIPITOR) 10 MG tablet ??? ferrous sulfate 325 (65 FE) MG tablet ??? fluticasone propionate (FLONASE) 50 MCG/ACT nasal spray ??? gabapentin (NEURONTIN) 300 MG capsule ??? HYDROcodone-acetaminophen (NORCO) 10-325 MG tablet ??? lisinopril (PRINIVIL; ZESTRIL) 2.5 MG tablet ??? omeprazole EC (PRILOSEC OTC) 20 MG tablet ??? venlafaxine XR 24hr (EFFEXOR XR) 75 MG capsule ??? warfarin (COUMADIN) 1 MG tablet ??? warfarin (COUMADIN) 5 MG tablet Allergies No Known Allergies Social History Social History Tobacco Use ??? Smoking status: Never Smoker ??? Smokeless tobacco: Never Used Substance Use Topics ??? Alcohol use: Not on file ??? Drug use: Not on file Family History No family history on file. ROS General: No recent fevers Eyes: No vision loss or diplopia ENT: No hearing loss Cardiac: No chest pain Respiratory: No shortness of breath GI: No bloody stools : No hematuria Skin: No rash Heme: Denies easy bruising Psych: Denies anxiety or depression Endocrine: Denies hair loss Musc: No arthralgias Exam BP 146/66 Pulse 57 Temp 97.6 ??F (36.4 ??C) (Axillary) Resp 13 Ht 1.651 m (5' 5 ) Wt 94.9 kg (209 lb 4.8 oz) SpO2 95% BMI 34.83 kg/m2 Examination: General : Patient is comfortably sitting in bed. HEENT: PERRLA, EOMI, Atraumatic , Normocephalic Extremities: No pallor, cyanosis or edema seen. Neurological exam : Mental status: Alert and oriented to time, place and person. Speech and language intact. No Aphasiaand No dysarthria noted. Naming, repeating and comprehension intact. Able to follow 3 step command.Insight, Memory, Attention span normal CN: PERRLA, VA intact,VF intact, EOMI, facial sensation and strength equal, hearing intact to deyvi finger tapping, Palate elevates midline, deyvi shoulder shrug normal, tongue protrudes Midline Motor: normal strength in bilateral upper and lower extremities proximally and distally, tone normal, no abnormal movements seen, no muscle atrophy seen Sensory: equal to touch, pp, temp and vibration in bilateral upper and lower extremities Cerebellar : Normal Finger nose finger and Heel knee sheen testing bilaterally. Normal Rapid alternating movements with finger and toe tapping Reflexes: symmetric in bilaterally in upper and lower extremities Gait and station: Not tested due to patient's condition NIHSS: 0 Lab Review Recent Labs Component Name 08/10/20 0557 SODIUM 139 POTASSIUM 4.4 CHLORIDE 107 CO2 26 BUN 17 CREATININE 1.15* GLUCOSE 85 CALCIUM 10.1 Recent Labs Component Name 08/10/20 0557 WBC 4.1* HGB 12.1 HCT 38.0 PLTCOUNT 209 Imaging No results found. Impression: 1) Headache- rule out SAH 2) Right MCA aneurysm PLAN 1) Obtain Brain MRI today 2) Diagnostic cerebral angiogram this afternoon or tomorrow morning. 3) Check 2D echo to look for baseline cardiac function 4) The choice for DVT prophylaxis in this patient is SCD. 5) Blood pressure control <140 mmhg with nicardipine drip or PRN labetalol 6) PT/OT/ST evaluations. Depending on the recommendations, the patient may be a candidate for inpatient rehabilitation. 7) Diagnostic cerebral angiogram with possible coiling. 8) Will follow Many thanks- Natalee GRAFF. I have seen and examined this patient on 08/09/2020 and discussed the discharge planning on the daily rounds and agree with AGENT BASED MODELER's HPI, exam, findings, assessment and plan. Patient presented with history of severe headache associated with dizziness and neck pain. 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 There was concern for sentinel subarachnoid hemorrhage so the patient was transferred is [facility] further management. On arrival patient had MRI brain done that was unremarkable for acute ischemic stroke. No significant hemorrhage was noted. On examination patient has no significant focal neurological deficits. Patient has history of mechanical aortic valve and is on Coumadin. cerebral angiogram further evaluation of intracranial aneurysm and assess for endovascular/surgical treatment. Will follow documented in this encounter Plan of Treatment Scheduled Orders Name Type Priority Associated Diagnoses Order Schedule INITIATE RT BRONCHODILATOR PROTOCOL Respiratory Care Routine ONCE for 1 Occurrences starting 08/09/2020 until 08/09/2020 documented as of this encounter Procedures Procedure Name Priority Date/Time Associated Diagnosis Comments CARDIAC RHYTHM STRIP ORDER 08/13/2020 11:57 PM CDT PT-INR AM Draw 08/11/2020 6:14 AM CDT CBC W AUTO DIFFERENTIAL AM Draw 08/12/19 6:14 AM CDT BASIC METABOLIC PANEL (CALCIUM TOTAL) AM Draw 08/11/2020 6:14 AM CDT IR CAROTID CEREBRAL ANGIOGRAM Routine 08/10/2020 9:59 AM CDT Dizziness PT-INR AM Draw 08/10/2020 5:57 AM CDT CBC W AUTO DIFFERENTIAL Routine 08/11/19 5:57 AM CDT COMPREHENSIVE METABOLIC PANEL Routine 08/10/2020 5:57 AM CDT GLUCOSE - POINT OF CARE Routine 08/10/19 10:43 PM CDT EKG 12-LEAD STAT 08/09/2020 5:33 PM CDT S/P AVR (aortic valve replacement) Elevated troponin MRI BRAIN WO CONTRAST STAT 08/09/2020 12:34 PM CDT Dizziness PT-INR MEGAN 08/09/2020 9:46 AM CDT ECHOCARDIOGRAM 2D WITH DOPPLER Routine 08/09/2020 9:00 AM CDT S/P AVR (aortic valve replacement) Elevated troponin documented in this encounter Results * CARDIAC RHYTHM STRIP ORDER (08/13/2020 11:57 PM CDT) Narrative 08/13/2020 11:57 PM CDT Ordered by an unspecified provider. Scanned Document CARDIAC SERVICES ORD ERABLES * (ABNORMAL) BASIC METABOLIC PANEL (CALCIUM TOTAL) (08/11/2020 6:14 AM CDT) Glucose 75 70 - 105 mg/dL 08/11/2020 6:47 AM CDT [facility] Sodium 140 136 - 145 mmol/L 08/11/2020 6:47 AM CDT [facility] Potassium 4.5 3.5 - 5.1 mmol/L 08/11/2020 6:47 AM CDT [facility] Chloride 107 98 - 107 mmol/L 08/11/2020 6:47 AM CDT [facility] CO2 25 23 - 31 mmol/L 08/11/2020 6:47 AM CDT [facility] Calcium 10.0 8.4 - 10.4 mg/dL 08/11/2020 6:47 AM CDT [facility] Anion Gap 8 8 - 18 mmol/L 08/11/2020 6:47 AM CDT [facility] BUN 23(H) 9.8 - 20.1 mg/dL 08/11/2020 6:47 AM T [facility] Creatinine 1.03 0.57 - 1.11 mg/dL 08/11/2020 6:47 AM T [facility] eGFR by MDRD 52 mL/min/1.7 3m2 08/11/2020 6:47 AM T [facility] eGFR by MDRD >60 mL/min/1.7 3m2 08/11/2020 6:47 AM T [facility] Blood BLOOD SPECIMEN / Unknown Lab Venipuncture / Unknown 08/11/2020 6:14 AM CDT 08/11/2020 6:25 AM CDT Neel Paulino DO LAB - CHEMISTRY O RDERABLES [facility] [address] [id number] * (ABNORMAL) CBC W AUTO DIFFERENTIAL (08/11/2020 6:14 AM CDT) WBC 4.9 4.4 - 10.7 x10E9/L 08/11/2020 6:26 AM CDT [facility] WBC Corrected 08/11/2020 6:26 AM CDT [facility] RBC 3.38(L) 3.80 - 5.20 x10E12/L 08/11/2020 6:26 AM CDT [facility] Hemoglobin 11.1(L) 12.0 - 15.6 gm/dL 08/11/2020 6:26 AM CDT [facility] Hematocrit 34.6(L) 35.9 - 45.5 % 08/11/2020 6:26 AM CDT [facility] MCV 102.4(H) 80.7 - 98.3 fl 08/11/2020 6:26 AM CDT [facility] MCH 32.8 26.7 - 34.0 pg 08/11/2020 6:26 AM CDT [facility] MCHC 32.1 30.8 - 35.9 gm/dL 08/11/2020 6:26 [facility] Plate[facility] Count 191 153 - 416 x10E9/L 08/11/2020 6:26 AM [facility] RDW-CV 12.1 12.1 - 14.9 % 08/11/2020 6:26 AM [facility] MPV 12.0 9.4 - 12.9 fl 08/11/2020 6:26 AM [facility] Neutrophils % 52.4 44.0 - 73.0 % 08/11/2020 6:26 AM [facility] Lymphocytes % 26.0 20.0 - 43.0 % 08/11/2020 6:26 AM [facility] Monocytes % 16.1(H) 5.0 - 13.0 % 08/11/2020 6:26 AM [facility] Eosinophils % 4.1 0.0 - 6.0 % 08/11/2020 6:26 AM CDT [facility] Basophils % 1.4 0.0 - 2.0 % 08/11/2020 6:26 AM CDT [facility] Immature Granulocytes 0.0 0 - 1 % 08/11/2020 6:26 AM [facility] Neutrophil Absolute 2.54 2.01 - 7.14 x10E9/L 08/11/2020 6:26 AM CDT [facility] Lymphocytes Absolute 1.26 1.07 - 3.94 x10E9/L 08/11/2020 6:26 AM CDT [facility] Monocytes Absolute 0.78 0.26 - 1.07 x10E9/L 08/11/2020 6:26 AM CDT [facility] Eosinophils Absolute 0.20 0 - 0.47 x10E9/L 08/11/2020 6:26 AM CDT [facility] Basophils Absolute 0.07 0 - 0.08 x10E9/L 08/11/2020 6:26 AM CDT [facility] Immature Granulocytes Absolute 0.00 0.00 - 0.06 x10E9/L 08/11/2020 6:26 AM CDT [facility] nRBC Auto 0 /100 WBC 08/11/2020 6:26 AM CDT [facility] Blood BLOOD SPECIMEN / Unknown Lab Venipuncture / Unknown 08/11/2020 6:14 AM CDT 08/11/2020 6:24 AM CDT Neel Paulino DO LAB - HEMATOLOGY ORDERABLES Performing Organization Address [facility] Co de Phone Number [facility] [address] [id number] * (ABNORMAL) PT-INR (08/11/2020 6:14 AM CDT) PT 16.3(H) 12.1 - 14.8 sec 08/11/2020 6:40 AM CDT [facility] INR 1.4(H) 0.9 - 1.1 08/11/2020 6:40 AM CDT [facility] Blood BLOOD SPECIMEN / Unknown Lab Venipuncture / Unknown 08/11/2020 6:14 AM CDT 08/11/2020 6:24 AM CDT Narrative [facility] - 08/11/2020 6:40 AM CDT Conventional Warfarin Anticoagulant Therapy: INR Reference Range: ??2.0-3.0 Intensive Warfarin Anticoagulant Therapy: INR Reference Range: ? 2.5-3.5 Odette Rowland MD LAB - COAGULATION OR DERABLES Performing Organization Address City/[facility]/ZIP Co de Phone Number [facility] [address] [address] [phone] * IR CAROTID CEREBRAL ANGIOGRAM (08/10/2020 9:59 AM CDT) Anatomical Region Laterality Modality Head Other Narrative 08/10/2020 10:02 AM CDT Mane Munoz MD ? 08/10/2020 10:06 AM PROCEDURE PERFORMED: DIAGNOSTIC CEREBRAL ANGIOGRAM DATE OF PROCEDURE: ??08/10/2020 INDICATION: ??Evaluate for intracranial aneurysm, assess for need for surgical/endovascular management. PREVIOUS COMPARISON STUDIES: ?MRI brain SEDATION: No sedation was used. The patient was monitored for vitals signs and pulse ox throughout the procedure by a trained nurse specialist independent of those performing the procedure. CONTRAST USED: 75cc ??Isovue 300 ?? FLUORO TIME: 2.2 minutes PROCEDURE PERFORMED BY: ATTENDING PHYSICIAN: MANE MUNOZ MD ? Consent for the procedure was obtained from the patient following a discussion of its technique, benefits, and risks, including stroke, transient neurological deficits, blood vessel injury, and bleeding. Following sterile preparation and draping, fluoroscopic localization of the femoral head for a femoral approach, and injection of buffered 1% lidocaine for local anesthesia, a right femoral artery puncture was performed with 21-gauge micropuncture needle. A 5 Wallisian sheath was inserted over a BrandShieldson wire and connected to a regulated pressurized infusion. A 5 Wallisian diagnostic catheter was advanced over the wire to the aortic arch and was used to select the following vessels: Right Common Carotid Left Common carotid Left vertebral Right Common femoral artery RIGHT COMMON CAROTID ARTERY RUN: DSA run was obtained in MICHAEL and lateral views. Right common carotid artery is unremarkable and patent. The right carotid bifurcation is widely patent and no underlying stenosis is seen. The right internal carotid artery is unremarkable in its cervical segment and otherwise is widely patent. Right external carotid artery is unremarkable and patent.The right internal carotid artery is unremarkable and patent in its cervical, petrous, cavernous and communicating segments. The right ICA bifurcates normally into the right MCA and the right ABRRIE. The right M1 MCA is unremarkable. MCA bifurcation is patent. 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 ?? The distal right MCA branches are unremarkable and opacifying well. The right A1 BARRIE and distal BARRIE branches are unremarkable. ?? Opacification of the left BARRIE in its entirety is noted through the anterior communicating artery. LEFT COMMON CAROTID ARTERY RUN: DSA run was obtained in SYRIAC and lateral views. Left common carotid artery is unremarkable and patent. The left carotid bifurcation is widely patent and no underlying stenosis is seen. The left internal carotid artery is unremarkable in its cervical segment and otherwise is widely patent. Left external carotid artery is unremarkable and patent. The left internal carotid artery is unremarkable and is patent in its cervical, petrous, cavernous and communicating segments. The left ICA bifurcates normally into the left BARRIE and the left MCA. ?? The left A1 BARRIE is hypoplastic. left M1 MCA is unremarkable. ??MCA bifurcation is patent. The distal left MCA branches are unremarkable and opacifying well. LEFT VERTEBRAL ARTERY RUN: Distal subtraction angiography run was obtained in AP, lateral views. The left vertebral artery is unremarkable and patent in its cervical and intra- cranial segment. Opacification of the basilar artery, bilateral superior cerebellar arteries as well as posterior cerebral arteries is noted and all appear unremarkable. Left PICA opacifies well and is unremarkable. RIGHT COMMON FEMORAL ARTERY RUN: ??Digital subtraction angiography run performed of the bifurcation of the common iliac artery from the common femoral artery sheath demonstrated a normal common femoral artery bifurcation with no dissection or filling defect. Arterial sheath was removed and hemostasis was obtained using Mynx closure device and manual compression. Patient tolerated the procedure well and had no immediate procedure related complications IMPRESSION: 1. 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 Natalee Solis GUIDANCE SERVICES COORDINATOR-COLLECTION SYSTEMS CONSULTANT IR ORDERABLES * (ABNORMAL) PT-INR (08/10/2020 5:57 AM CDT) PT 15.4(H) 12.1 - 14.8 sec 08/10/2020 6:15 AM CDT [facility] INR 1.3(H) 0.9 - 1.1 08/10/2020 6:15 AM CDT [facility] Blood BLOOD SPECIMEN / Unknown Lab Venipuncture / Unknown 08/10/2020 5:57 AM CDT 08/10/2020 6:02 AM CDT Narrative [facility] - 08/10/2020 6:15 AM CDT Conventional Warfarin Anticoagulant Therapy: INR Reference Range: ??2.0-3.0 Intensive Warfarin Anticoagulant Therapy: INR Reference Range: ? 2.5-3.5 Odette Rowland MD LAB - COAGULATION OR DERABLES Performing Organization Address City/State/[facility] Co de Phone Number [facility] [address] [place] [address] * (ABNORMAL) CBC W AUTO DIFFERENTIAL (08/10/2020 5:57 AM CDT) [facility] Signature WBC 4.1(L) 4.4 - 10.7 x10E9/L 08/10/2020 6:05 AM CDT [facility] WBC Corrected 08/10/2020 6:05 AM CDT [facility] RBC 3.71(L) 3.80 - 5.20 x10E12/L 08/10/2020 6:05 AM CDT [facility] Hemoglobin 12.1 12.0 - 15.6 gm/dL 08/10/2020 6:05 AM CDT [facility] Hematocrit 38.0 35.9 - 45.5 % 08/10/2020 6:05 AM CDT [facility] MCV 102.4(H) 80.7 - 98.3 fl 08/10/2020 6:05 AM CDT [facility] MCH 32.6 26.7 - 34.0 pg 08/10/2020 6:05 AM CDT [facility] MCHC 31.8 30.8 - 35.9 gm/dL 08/10/2020 6:05 AM CDT [facility] Platelet Count 209 153 - 416 x10E9/L 08/10/2020 6:05 AM CDT [facility] RDW-CV 12.2 12.1 - 14.9 % 08/10/2020 6:05 AM CDT [facility] MPV 11.9 9.4 - 12.9 fl 08/10/2020 6:05 AM CDT [facility] Neutrophils % 48.4 44.0 - 73.0 % 08/10/2020 6:05 AM CDT [facility] Lymphocytes % 31.4 20.0 - 43.0 % 08/10/2020 6:05 AM [facility] Monocytes % 14.6(H) 5.0 - 13.0 % 08/10/2020 6:05 AM [facility] Eosinophils % 3.7 0.0 - 6.0 % 08/10/2020 6:05 AM [facility] Basophils % 1.7 0.0 - 2.0 % 08/10/2020 6:05 AM [facility] Immature Granulocytes 0.2 0 - 1 % 08/10/2020 6:05 AM [facility] Neutrophil Absolute 1.96(L) 2.01 - 7.14 x10E9/L 08/10/2020 6:05 AM [facility] Lymphocytes Absolute 1.27 1.07 - 3.94 x10E9/L 08/10/2020 6:05 AM [facility] Monocytes Absolute 0.59 0.26 - 1.07 x10E9/L 08/10/2020 6:05 AM [facility] Eosinophils Absolute 0.15 0 - 0.47 x10E9/L 08/10/2020 6:05 AM [facility] Basophils Absolute 0.07 0 - 0.08 x10E9/L 08/10/2020 6:05 AM [facility] Immature Granulocytes Absolute 0.01 0.00 - 0.06 x10E9/L 08/10/2020 6:05 AM [facility] nRBC Auto 0 /100 WBC 08/10/2020 6:05 AM [facility] Blood BLOOD SPECIMEN / Unknown Lab Venipuncture / Unknown 08/10/2020 5:57 AM CDT 08/10/2020 6:02 AM T Odette Rowland MD LAB - HEMATOLOGY ORD ERABLES [facility] [address] [id number] * (ABNORMAL) COMPREHENSIVE METABOLIC PANEL (08/10/2020 5:57 AM CDT) [facility] Glucose 85 70 - 105 mg/dL 08/10/2020 6:24 AM [facility] Sodium 139 136 - 145 mmol/L 08/10/2020 6:24 AM [facility] Potassium 4.4 3.5 - 5.1 mmol/L 08/10/2020 6:24 AM [facility] Chloride 107 98 - 107 mmol/L 08/10/2020 6:24 AM [facility] CO2 26 23 - 31 mmol/L 08/10/2020 6:24 AM [facility] Calcium 10.1 8.4 - 10.4 mg/dL 08/10/2020 6:24 AM [facility] Anion Gap 6(L) 8 - 18 mmol/L 08/10/2020 6:24 AM [facility] BUN 17 9.8 - 20.1 mg/dL 08/10/2020 6:24 AM [facility] Creatinine 1.15(H) 0.57 - 1.11 mg/dL 08/10/2020 6:24 AM [facility] Alkaline Phosphatase 63 40 - 150 U/L 08/10/2020 6:24 AM [facility] ALT 12 0 - 61 U/L 08/10/2020 6:24 AM [facility] AST 19 5 - 34 U/L 08/10/2020 6:24 AM [facility] Protein Total 6.0(L) 6.4 - 8.3 gm/dL 08/10/2020 6:24 AM [facility] Albumin 3.3 3.2 - 4.6 gm/dL 08/10/2020 6:24 AM [facility] Bilirubin Total 0.4 0.2 - 1.2 mg/dL 08/10/2020 6:24 AM [facility] eGFR by MDRD 46 mL/min/1.7 3m2 08/10/2020 6:24 AM [facility] eGFR by MDRD 56 mL/min/1.7 3m2 08/10/2020 6:24 AM [facility] Blood BLOOD SPECIMEN / Unknown Lab Venipuncture / Unknown 08/10/2020 5:57 AM CDT 08/10/2020 6:02 AM CDT Odette Rowland MD LAB - CHEMISTRY [place] MEDARDOMORGAN Performing Organization Address [facility] Co de Phone Number [facility] [address] [phone] * GLUCOSE - POINT OF CARE (08/09/2020 10:43 PM CDT) Glucose WB/POC 88 70 - 106 mg/dL 08/10/2020 11:37 AM CDT [facility] Specimen Type Arterial/C apillary 08/10/2020 11:37 AM CDT [facility] Blood BLOOD SPECIMEN / Unknown 08/09/2020 10:43 PM CDT 08/10/2020 11:37 AM CDT Neel Paulino DO LAB - POINT OF CA RE ORDERABLES Performing Organization Address [facility] de Phone Number [facility] [address] [phone] * EKG 12-LEAD (08/09/2020 5:33 PM CDT) Ventricular Rate 66 BPM [facility] Atrial Rate 66 BPM [facility] P-R Interval 208 ms [facility] QRS Duration ms 144 ms [facility] Q-T Interval ms 534 ms [facility] QTC Calculation (Bezet) 559 ms [facility] Calculated R Center -146 degrees [facility] Calculated T Center 22 degrees [facility] Interpretation EKG Suspect arm lead reversal, interpretation assumes no reversal aVR is positive Normal sinus rhythm Left bundle branch block Abnormal ECG No previous ECGs available Suggest repeat ECG and maje sure limb leads correctly applied Confirmed by MD LOPEZ PHILLIP G. ([id number]) on 08/10/2020 7:46:00 AM [facility] 08/09/2020 5:33 PM CDT 08/10/2020 7:46 AM CDT Robin Pierre Jr., MD ECG ORDERABLES [facility] * MRI BRAIN FOR STROKE (08/09/2020 12:34 PM CDT) Anatomical Region Laterality Modality Head Magnetic Resonan ce 08/09/2020 2:09 PM CDT Impressions 08/09/2020 2:10 PM CDT No acute infarct Moderate chronic small vessel white matter change *Reading Radiologist: Eb Estrella on 08/09/2020 at 2:10 PM Narrative 08/09/2020 2:10 PM CDT MRI Brain Without Contrast Clinical Indication: Dizziness, stroke Technique: Multisequence, multiplanar MRI sequences of the brain without contrast. Findings: No prior MRI. Moderate chronic small vessel white matter change. Dural sinuses are patent. No diffusion restriction is seen. No mass, hemorrhage, or midline shift is seen. The ventricular size is normal. There are no extra-axial fluid collections. Flow void is seen in the major intracranial vessels. The paranasal sinuses and mastoid air cells are clear. Procedure Note Eb Estrella MD - 08/09/2020 MRI Brain Without Contrast Clinical Indication: Dizziness, stroke Technique: Multisequence, multiplanar MRI sequences of the brain without contrast. Findings: No prior MRI. Moderate chronic small vessel white matter change. Dural sinuses are patent. No diffusion restriction is seen. No mass, hemorrhage, or midline shift is seen. The ventricular size is normal. There are no extra-axial fluid collections. Flow void is seen in the major intracranial vessels. The paranasal sinuses and mastoid air cells are clear. IMPRESSION No acute infarct Moderate chronic small vessel white matter change *Reading Radiologist: Eb Estrella on 08/09/2020 at 2:10 PM Natalee Solis GUIDANCE SERVICES COORDINATOR-COLLECTION SYSTEMS CONSULTANT MR ORDERABLES * (ABNORMAL) PT-INR (08/09/2020 9:46 AM CDT) PT 14.5 12.1 - 14.8 sec 08/09/2020 10:23 AM CDT [facility] INR 1.2(H) 0.9 - 1.1 08/09/2020 10:23 AM CDT [facility] Blood BLOOD SPECIMEN / Unknown Lab Venipuncture / Unknown 08/09/2020 9:46 AM CDT 08/09/2020 9:58 AM CDT Narrative [facility] - 08/09/2020 10:23 AM CDT Conventional Warfarin Anticoagulant Therapy: INR Reference Range: ??2.0-3.0 Intensive Warfarin Anticoagulant Therapy: INR Reference Range: ? 2.5-3.5 Neel Paulino DO LAB - COAGULATION ORDERABLES [facility] [address] [place] [address] * ECHOCARDIOGRAM 2D WITH DOPPLER (08/09/2020 9:00 AM CDT) 08/09/2020 9:00 AM CDT Narrative Procedure Note Robin Pierre Jr., MD - 08/09/2020 [place] [address] Echocardiography Examination Transthoracic Name: ANA MARIA BOBO [facility]#: MR#: [id number] Admission Number: [id number] Study Date: 08/09/2020 Study Time: 02:16 PM Date Of : 1945 Age: 75 years Height: 65 in. (165.1 cm) Weight: 209 lbs. (94.80 kg) BSA: 2.02 m2 Gender: Female Blood Pressure: 135 mmHg / 63 mmHg Heart Rate: Exam Details Procedure Ordered: ECHOCARDIOGRAM 2D W/DOPPLER Procedure Components: Complete 2D, M-mode, complete spectral Doppler, color Doppler, Definity Procedure Views: Images were obtained from the parasternal, apical, subcostal, and suprasternal notch acoustic windows Procedure Status: Routine study Image Quality: Technically Difficult Contrast: Intravenous contrast (Definity) was administered to opacify the left ventricle. Facility Location: [facility] Indication: S/P AVR, Elevated troponin Procedure Care Attendant: Ana Maria Chance ANURAG Ordering Provider: Robin Pierre MD Reading Physician: Robin Pierre MD Conclusions Left Ventricle: ? ? Left ventricle is normal in size. ? ? Systolic left ventricular function is at the lower limits of normal. ? ? EF range is 50 % -55 %. ? ? Left ventricle wall thickness is moderately increased. ? ? There are no regional wall motion abnormalities. ? ? Left ventricular diastolic function parameters are normal. IVS: ? ? There is moderate dyssynergic motion in the interventricular septum. Aortic Valve: ? ? Mild aortic regurgitation is present. ? ? There is mild aortic stenosis. Patient: ANA MARIA BOBO Study Date: 08/09/2020 02:16 PM Page 1 of 4 ? ? The aortic valve is a mechanical prosthesis. Aortic Valve Measurements ? ? AV PGmax: 40 mmHg. ? ? AV PGmean: 22 mmHg. ? ? YADIRA D (continuity eq. VTI): 1.2 cm??. Tricuspid Valve Measurements ? ? RVSP: 25 mmHg. Follow up: Findings Left Ventricle: Left ventricle is normal in size. Systolic left ventricular function is at the lower limits of normal. EF evaluated by biplane method of disks. Left ventricle wall thickness is moderately increased. There are no regional wall motion abnormalities. Left ventricular diastolic function parameters are normal. IVS: There is moderate dyssynergic motion in the interventricular septum. The change in the interventricular septum is consistent with a conduction abnormality or paced rhythm. Right Ventricle: Normal size right ventricle. Right ventricular wall thickness is normal. Right ventricular systolic function is normal. Pulmonary artery pressure normal. Left Atrium: The left atrium is mildly dilated. Right Atrium: The right atrium is normal in size. Mitral Valve: Mitral leaflets exhibit normal cuspal separation. Trivial mitral regurgitation. No mitral valve stenosis. Aortic Valve: Aortic leaflets exhibit normal cuspal separation. Mild aortic regurgitation is present. There is mild aortic stenosis. The aortic valve is a mechanical prosthesis. Aortic Valve Measurements AV PGmax: 40 mmHg. AV PGmean: 22 mmHg. Tricuspid Valve: Tricuspid valve leaflets are normal. Mild tricuspid regurgitation. No tricuspid valve stenosis. Pulmonic Valve: Pulmonic leaflets exhibit normal cuspal separation. No pulmonic valve regurgitation is evident. There is no pulmonic valve stenosis. Aorta: The aorta is normal. No dilation of the ascending aorta. The aortic root exhibits normal size. Great Vessels: IVC: The inferior vena cava is normal in size and course. Pericardium: The pericardium is normal in appearance. No pericardial effusion. Clinical Data Comment: History: Aortic valve replacement Measurements Patient: ANA MARIA BOBO Study Date: 08/09/2020 02:16 PM Page 2 of 4 Anatomy Label Value Normal Value Aorta AoRoot, MM 2.3 cm (2.2cm - 3.7cm) Aortic Valve AV Vmean 2.15 m/s Aortic Valve AV VTI 68.9 cm Aortic Valve AV PGmax 40 mmHg Aortic Valve AV PGmean 22 mmHg Aortic Valve AR PHT 0.27 s Aortic Valve AR Vmax 1.78 m/s Aortic Valve AR PHT 272 ms Aortic Valve AV Vmax, Caliper 3.17 m/s (1m/s - 1.7m/s) Aortic Valve LVOT VTI / AV VTI 0.37 Aortic Valve YADIRA D (continuity eq. VTI) 1.2 cm?? Aortic Valve YADIRA Index (continuity 0.54 cm??/m?? eq.Vmax) Aortic Valve LVOT Vmax / AV Vmax 0.34 Interventricular septum IVSd, 2D 1.6 cm (0.6cm - 1.1cm) Left Atrium LADs, 2D 4.1 cm (2.7cm - 3.8cm) Left Atrium LA Area s, A4C 19.6 cm?? (0cm?? - 20cm??) Left Atrium LA Area s, A2C 21.6 cm?? (0cm?? - 20cm??) Left Atrium LAESV, MOD4 57 ml (22ml - 52ml) Left Atrium LAESV, MOD2 72 ml (22ml - 52ml) Left Atrium LAESV index, MOD4 28.2 ml/m?? Left Atrium LAESV index, MOD2 35.6 ml/m?? Left Ventricle LVOT Vmax 1.09 m/s (0.7m/s - 1.1m/s) Left Ventricle LVOTd 2 cm (1.8cm - 2cm) Left Ventricle LVOT VTI 25.4 cm (18cm - 22cm) Left Ventricle LVOT PGmax 5 mmHg Left Ventricle LVDd, 2D 4.9 cm (3.7cm - 5.2cm) Left Ventricle LVDs, 2D 3.5 cm (2.2cm - 3.5cm) Left Ventricle LVPWd, 2D 1.2 cm (0.6cm - 0.9cm) Left Ventricle FS, 2D 29 % Left Ventricle LVEDV, BP 124 ml (56ml - 104ml) Left Ventricle LVESV, BP 63 ml (19ml - 49ml) Left Ventricle LVEDV Index, BP 61.4 ml/m?? (35ml/m?? - 75ml/m??) Left Ventricle LVESV Index, BP 31.2 ml/m?? (12ml/m?? - 30ml/m??) Left Ventricle LVSV Index, BP 30.2 ml/m?? Left Ventricle LVOT PGmean 3 mmHg Left Ventricle LVOT Vmean 0.76 m/s Left Ventricle LVOT Area 3.1 cm?? Left Ventricle EF lower range (%) 50 % Left Ventricle EF upper range (%) 55 % Left Ventricle Diastolic MV E Vmax 1.11 m/s Function Left Ventricle Diastolic MV A Vmax 1.34 m/s Function Left Ventricle Diastolic MV E/A 0.83 Function Left Ventricle Diastolic MV E/E' lateral 19 Function Left Ventricle Diastolic MV E/E' septal 27.1 (0.45 - 1.25) Patient: ANA MARIA BOBO Study Date: 08/09/2020 02:16 PM Page 3 of 4 Function Left Ventricle Diastolic MV DT 250 ms Function Left Ventricle Diastolic MV E' septal 0.04 m/s Function Left Ventricle Diastolic MV E' lateral 0.06 m/s Function Left Ventricle Diastolic MV E/E' mean 22.2 Function Left Ventricle Diastolic MV E' mean 0.05 m/s Function Pulmonic Valve PV PGmax 5 mmHg Pulmonic Valve PV Vmax, Caliper 1.09 m/s (0.6m/s - 0.9m/s) Right Ventricle Diastolic TR Pmax 22 mmHg Function Right Ventricle Diastolic PV AT 102 ms Function Tricuspid Valve RVSP 25 mmHg Tricuspid Valve RA Pressure 3 mmHg Tricuspid Valve TR Vmax 2.34 m/s (No Signature Object) Patient: ANA MARIA BOBO Study Date: 08/09/2020 02:16 PM Page 4 of 4 Robin Pierre Jr., MD ECHO ORDERABLES [facility] [id number] [id number] documented in this encounter Visit Diagnoses Diagnosis Dizziness- Primary Dizziness and giddiness Dizziness Dizziness and giddiness Memory impairment Memory loss S/P AVR (aortic valve replacement) Heart valve replaced by other means Elevated troponin Other abnormal blood chemistry Memory impairment Memory loss S/P AVR (aortic valve replacement) Heart valve replaced by other means Elevated troponin Other abnormal blood chemistry documented in this encounter Administered Medications Inactive Administered Medications - up to 3 most recent administrations Medication Order MAR Action Action Date Dose Rate Site 0.9% NaCl injection 1-10 mL 1-10 mL, Intracatheter, PRN, Other, peripheral line flush, Starting on Sandi 08/09/20 at 0405, Until 08/11/20 at 1642, Flush peripheral IV catheter with 1-10 mL of normal saline before and after medications and prn to clear blood from the line or to verify patency. 0.9% NaCl injection 3 mL 3 mL, Intracatheter, EVERY 8 HOURS, First dose on Sandi 08/09/20 at 0600, Until Discontinued, Flush peripheral IV catheter with 3 mL of normal saline every 8 hours. $ Given 08/11/2020 3:34 AM CDT 3 mL $ Given 08/10/2020 9:29 PM CDT 3 mL $ Given 08/10/2020 2:05 PM CDT 3 mL acetaminophen (Tylenol) tablet 650 mg 650 mg, Oral, EVERY 6 HOURS PRN, Mild Pain, Starting on Sandi 08/09/20 at 0405, Until 08/11/20 at 1642 $ Given 08/10/2020 11:40 PM CDT 650 mg $ Given 08/09/2020 9:50 AM CDT 650 mg amiodarone (Cordarone) tablet 100 mg 100 mg, Oral, DAILY, First dose (after last modification) on Thu08/10/20 at 0900, Until Discontinued $ Given 08/11/2020 7:22 AM CDT 100 mg $ Given 08/10/2020 11:25 AM CDT 100 mg atorvastatin (Lipitor) tablet 10 mg 10 mg, Oral, AT BEDTIME, First dose on Sandi 08/09/20 at 2100, Until Discontinued $ Given 08/10/2020 7:37 PM CDT 10 mg $ Given 08/09/2020 9:29 PM CDT 10 mg bisacodyl (Dulcolax) suppository 10 mg 10 mg, Rectal, DAILY PRN, Constipation, Starting on Thu08/11/20 at 1240, Until Thu08/11/20 at 1642 docusate sodium (Colace) capsule 200 mg 200 mg, Oral, 2 TIMES DAILY, First dose on Thu08/11/20 at 1330, Until Discontinued, Hold for diarrhea $ Given 08/11/2020 2:34 PM CDT 200 mg enoxaparin (Lovenox) injection 90 mg 90 mg (rounded from 94.9 mg = 1 mg/kg ? 94.9 kg), Subcutaneous, EVERY 12 HOURS, First dose on Thu08/09/20 at 2100, Until Discontinued, (for prefilled syringes) do not expel air bubble from the syringe prior to the injection Remind Patient to not rub injection site. Could cause hematoma. $ Given 08/11/2020 7:22 AM CDT 90 mg Abdominal Tissue $ Given 08/10/2020 7:37 PM CDT 90 mg Ab d Left Lower Quadrant $ Given 08/10/2020 2:04 PM CDT 90 mg Ab dominal Tissue ferrous sulfate tablet 325 mg 325 mg, Oral, DAILY, First dose on Thu08/10/20 at 0900, Until Discontinued, Take with food. Do not take within 2 hours of other medications. $ Given 08/11/2020 7:24 AM CDT 325 mg $ Given 08/10/2020 11:26 AM CDT 325 mg fluticasone propionate (Flonase) nasal spray 2 spray 2 spray, Each Nostril, DAILY, First dose on Thu08/10/20 at 0900, Until Discontinued, Shake gently before use. $ Given 08/11/2020 7:25 AM CDT 2 spr ays $ Given 08/10/2020 2:06 PM CDT 2 sprays gabapentin (Neurontin) capsule 300 mg 300 mg, Oral, 2 TIMES DAILY, First dose on Thu08/09/20 at 2100, Until Discontinued $ Given 08/11/2020 7:25 AM CDT 300 m g $ Given 08/10/2020 7:37 PM CDT 300 mg $ Given 08/10/2020 11:26 AM CDT 300 mg heparinized saline 2 units/ml infusion 3,000 mL, Intra-arterial, INTRA-PROCEDURE MULTIPLE, Starting on Thu08/10/20 at 0949, Until 08/11/20 at 1642, Intra-procedure (IR) $ New Bag/Syringe 08/10/2020 10:04 AM CDT 3,000 mL HYDROcodone-acetaminophen (Isabella) 10-325 MG tablet 2 tablet 2 tablet, Oral, EVERY 8 HOURS PRN, Moderate Pain, Starting on Sandi 08/09/20 at 1526, Until 08/11/20 at 1642 $ Given 08/11/2020 3:40 AM CDT 2 tablets $ Given 08/10/2020 7:24 PM CDT 2 tablets $ Given 08/10/2020 3:09 AM CDT 2 tablets HYDROmorphone (Dilaudid) injection 0.5 mg 0.5 mg, Intravenous, ONCE PRN, Headache, 1 dose, Starting on Sandi 08/09/20 at 1528, Until Sandi 08/09/20 at 1551 $ Given 08/09/2020 3:51 PM CDT 0.5 mg iopamidol (Isovue 300) 61 % contrast Intra-arterial, INTRA-PROCEDURE MULTIPLE, Starting on Thu08/10/20 at 0950, Until 08/11/20 at 1642, Intra/Post-procedure $ Given - Contrast 08/10/2020 10:04 AM CDT 60 mL lidocaine (Xylocaine) 1 % injection Infiltration, INTRA-PROCEDURE MULTIPLE, Starting on Thu08/10/20 at 0949, Until 08/11/20 at 1642, Intra-procedure (IR) $ Admin. by Other Provider 08/10/2020 9:48 AM CDT 200 mg lisinopril (Prinivil;Zestril) tablet 2.5 mg 2.5 mg, Oral, DAILY, First dose on Sandi 08/09/20 at 1800, Until Discontinued $ Given 08/11/2020 7:24 AM CDT 2.5 mg $ Given 08/10/2020 11:25 AM CDT 2.5 mg morphine injection 4 mg 4 mg, Intravenous, ONCE, 1 dose, On Sandi 08/09/20 at 2215 $ Given 08/09/2020 10:24 PM CDT 4 mg niCARdipine (Cardene) 20 mg in 0.9% NaCl 200 mL infusion 0-15 mg/hr (0-150 mL/hr), Intravenous, CONTINUOUS, Starting on Sandi 08/09/20 at 1245, Until 08/11/20 at 1642, Change the infusion site every 12 hours if a peripheral vein is used, Titration Parameters: Standard Parameters, Indication: Hypertension, Initiate infusion at: 2.5 mg/hr, Titrate infusion by: 2.5 mg/hr, Titrate every: 15 minutes, To maintain a: Other - see comments, Notify physician if: SBP greater than - Other - see comments, despite max dose Titration/Assessment 08/10/2020 2:05 AM CDT 2.5 mg/hr 25 mL/hr $ New Bag/Syringe 08/09/2020 11:13 PM CDT 5 mg/hr 50 mL /hr Titration/Assessment 08/09/2020 9:34 PM CDT 7.5 mg/hr 75 mL/hr ondansetron (disintegrating) (Zofran ODT) tablet 4 mg 4 mg, Oral, EVERY 6 HOURS PRN, Nausea/Vomiting, Starting on Sandi 08/09/20 at 0405, Until 08/11/20 at 1642, Dissolved orally on tongue Dissolved orally on tongue ondansetron (Zofran) injection 4 mg 4 mg, Intravenous, EVERY 6 HOURS PRN, Nausea/Vomiting, Starting on Sandi 08/09/20 at 0405, Until 08/11/20 at 1642, Administer IV if patient is NPO, actively vomiting, or unable to swallow. pantoprazole EC (Protonix) tablet 40 mg 40 mg, Oral, DAILY, First dose on Thu08/10/20 at 0900, Until Discontinued, Do not crush, chew, or cut in half. $ Given 08/11/2020 7:25 AM CDT 40 mg $ Given 08/10/2020 11:26 AM CDT 40 mg perflutren Lipid Microsphere (Definity) injection SUSP 1.5 mL 1.5 mL, Intravenous, INTRA-PROCEDURE ONCE, 1 dose, On Sandi 08/09/20 at 1500, Shake well before using. $ Given 08/09/2020 2:50 PM CDT 0.39 mL polyethylene glycol 3350 (Miralax) packet 17 g 17 g, Oral, DAILY PRN, Constipation, Starting on Sandi 08/09/20 at 0405, Until Thu08/10/20 at 1813, Mix in 8 ounces of water, juice, soda, coffee or tea prior to administration $ Given 08/10/2020 11:27 AM CDT 17 g polyethylene glycol 3350 (Miralax) packet 17 g 17 g, Oral, 2 TIMES DAILY PRN, Constipation, Starting on Thu08/10/20 at 1815, Until Thu08/11/20 at 1642, Mix in 8 ounces of water, juice, soda, coffee or tea prior to administration $ Given 08/10/2020 7:25 PM CDT 17 g polyethylene glycol 3350 (Miralax) packet 17 g 17 g, Oral, 2 TIMES DAILY, First dose on Thu08/11/20 at 1330, Until Discontinued, Mix in 8 ounces of water, juice, soda, coffee or tea prior to administration senna (Senokot) tablet 17.2 mg 17.2 mg, Oral, 2 TIMES DAILY, First dose on Thu08/11/20 at 1330, Until Discontinued $ Given 08/11/2020 2:34 PM CDT 17.2 mg venlafaxine XR 24hr (Effexor XR) capsule 150 mg 150 mg, Oral, DAILY WITH BREAKFAST, First dose on Thu08/09/20 at 1600, Until Discontinued $ Given 08/10/2020 7:37 PM CDT 150 mg $ Given 08/09/2020 9:23 PM CDT 150 mg warfarin (Coumadin) dose per pharmacy [facility] Other, DAILY AT 1700, First dose on Thu08/09/20 at 1700, Until Discontinued, Call pharmacy daily for warfarin order if not already available. Do not delete or modify this order unless you are discontinuing warfarin!, Diagnosis requiring anticoagulation? Mechanical aortic valve, INR GOAL: 2.5-3.5 warfarin (Coumadin) tablet 9 mg 9 mg, Oral, ONCE WARFARIN, 1 dose, On Thu08/10/20 at 1700, . WASTE DISPOSAL INSTRUCTIONS: P-Listed item. Special Disposal Required. . $ Given 08/10/2020 6:09 PM CDT 9 mg warfarin (Coumadin) tablet 9 mg 9 mg, Oral, ONCE WARFARIN, 1 dose, On Thu08/11/20 at 1700, . WASTE DISPOSAL INSTRUCTIONS: P-Listed item. Special Disposal Required. . documented in this encounter Active and Recently Administered Medications Times are shown in CDT. Scheduled Medication Order 08/09/2020 08/10/2020 08/11/2020 0.9% NaCl injection 3 mL(Linked Group 1) 3 mL, Intracatheter, EVERY 8 HOURS, First dose on Sandi 08/09/20 at 0600, Until Discontinued, Flush peripheral IV catheter with 3 mL of normal saline every 8 hours. 0556 (Not Administered - Provider: Stuart Ramos RN - Reason: Patient sleeping)1316 ($ Given - Provider: Beena Brooks RN)2136 ($ Given - Provider: Lola Castaneda) 0631 (Not Administered - Provider: Lola Castaneda - Reason: Patient sleeping)1405 ($ Given - Provider: Beena Brooks RN)2129 ($ Given - Provider: Lina Mendez RN) 0334 ($ Given - Provider: Lina Mendez RN)1400 (Canceled Entry - Provider: Amarilis Simental RN) amiodarone (Cordarone) tablet 100 mg 100 mg, Oral, DAILY, First dose (after last modification) on Thu08/10/20 at 0900, Until Discontinued 1125 ($ Given - Provider: Beena Brooks RN) 0722 ($ Given - Provider: Amarilis Simental RN) atorvastatin (Lipitor) tablet 10 mg 10 mg, Oral, AT BEDTIME, First dose on Sandi 08/09/20 at 2100, Until Discontinued 2128 ($ Given - Provider: Lola Castaneda) 1937 ($ Given - Provider: Lina Mendez RN) docusate sodium (Colace) capsule 200 mg 200 mg, Oral, 2 TIMES DAILY, First dose on Thu08/11/20 at 1330, Until Discontinued, Hold for diarrhea 1434 ($ Given - Provider: Marian Ca RN) enoxaparin (Lovenox) injection 90 mg 90 mg (rounded from 94.9 mg = 1 mg/kg ? 94.9 kg), Subcutaneous, EVERY 12 HOURS, First dose on Sandi 08/09/20 at 2100, Until Discontinued, (for prefilled syringes) do not expel air bubble from the syringe prior to the injection Remind Patient to not rub injection site. Could cause hematoma. 2128 ($ Given - Provider: Lola Castaneda) 140 ($ Given - Provider: Beena Brooks RN)193 ($ Given - Provider: Lina Mendez, DALE) 0722 ($ Given - Provider: Amarilis Simental RN) ferrous sulfate tablet 325 mg 325 mg, Oral, DAILY, First dose on Thu08/10/20 at 0900, Until Discontinued, Take with food. Do not take within 2 hours of other medications. 1126 ($ Given - Provider: Beena Brooks RN) 0724 ($ Given - Provider: Amarilis Smiental RN) fluticasone propionate (Flonase) nasal spray 2 spray 2 spray, Each Nostril, DAILY, First dose on Thu08/10/20 at 0900, Until Discontinued, Shake gently before use. 140 ($ Given - Provider: Beena Brooks RN) 0725 ($ Given - Provider: Amarilis Simental RN) gabapentin (Neurontin) capsule 300 mg 300 mg, Oral, 2 TIMES DAILY, First dose on Thu08/09/20 at 2100, Until Discontinued 2128 ($ Given - Provider: Lola Castaneda) 1126 ($ Given - Provider: Beena Brooks RN)193 ($ Given - Provider: Lina Mendez RN) 0725 ($ Given - Provider: Amarilis Simental RN) heparinized saline 2 units/ml infusion 3,000 mL, Intra-arterial, INTRA-PROCEDURE MULTIPLE, Starting on Thu08/10/20 at 0949, Until 08/11/20 at 1642, Intra-procedure (IR) 1004 ($ New Bag/Syringe - Provider: Mane Munoz MD - Comment: infused during procedure) iopamidol (Isovue 300) 61 % contrast Intra-arterial, INTRA-PROCEDURE MULTIPLE, Starting on Thu08/10/20 at 0950, Until 08/11/20 at 1642, Intra/Post-procedure 1004 ($ Given - Contrast - Provider: Mane Munoz MD) lidocaine (Xylocaine) 1 % injection Infiltration, INTRA-PROCEDURE MULTIPLE, Starting on Thu08/10/20 at 0949, Until 08/11/20 at 1642, Intra-procedure (IR) 0948 ($ Admin. by Other Provider - Provider: Mane Munoz MD) lisinopril (Prinivil;Zestril) tablet 2.5 mg 2.5 mg, Oral, DAILY, First dose on Thu08/09/20 at 1800, Until Discontinued 2131 (Not Administered - Provider: Lola Castaneda - Reason: Per Administration Instructions) 1125 ($ Given - Provider: Beena Brooks RN) 0724 ($ Given - Provider: Amarilis Simental RN) morphine injection 4 mg (COMPLETED) 4 mg, Intravenous, ONCE, 1 dose, On Thu08/09/20 at 2215 2224 ($ Given - Provider: Lola Castaneda) pantoprazole EC (Protonix) tablet 40 mg 40 mg, Oral, DAILY, First dose on Thu08/10/20 at 0900, Until Discontinued, Do not crush, chew, or cut in half. 1126 ($ Given - Provider: Beena Brooks RN) 0725 ($ Given - Provider: Amarilis Simental RN) perflutren Lipid Microsphere (Definity) injection SUSP 1.5 mL (COMPLETED) 1.5 mL, Intravenous, INTRA-PROCEDURE ONCE, 1 dose, On Thu08/09/20 at 1500, Shake well before using. 1450 ($ Given - Provider: Ana Maria Chance, ANURAG - Comment: opacify left ventricle) polyethylene glycol 3350 (Miralax) packet 17 g 17 g, Oral, 2 TIMES DAILY, First dose on Thu08/11/20 at 1330, Until Discontinued, Mix in 8 ounces of water, juice, soda, coffee or tea prior to administration 1436 (Not Administered - Provider: Marian Ca RN - Reason: Refused-Patient) senna (Senokot) tablet 17.2 mg 17.2 mg, Oral, 2 TIMES DAILY, First dose on Thu08/11/20 at 1330, Until Discontinued 143 ($ Given - Provider: Marian Ca RN) venlafaxine XR 24hr (Effexor XR) capsule 150 mg 150 mg, Oral, DAILY WITH BREAKFAST, First dose on Thu08/09/20 at 1600, Until Discontinued 2122 ($ Given - Provider: Lola Castaneda) 1936 ($ Given - Provider: Lina Mendez, DALE) warfarin (Coumadin) dose per pharmacy [facility] Other, DAILY AT 1700, First dose on Sandi 08/09/20 at 1700, Until Discontinued, Call pharmacy daily for warfarin order if not already available. Do not delete or modify this order unless you are discontinuing warfarin!, Diagnosis requiring anticoagulation? Mechanical aortic valve, INR GOAL: 2.5-3.5 2156 (*Reviewed - Provider: Lola Castaneda) 1807 (*Reviewed - Provider: Amarilis Simental, DALE) warfarin (Coumadin) tablet 9 mg (COMPLETED) 9 mg, Oral, ONCE WARFARIN, 1 dose, On Thu08/10/20 at 1700, . WASTE DISPOSAL INSTRUCTIONS: P-Listed item. Special Disposal Required. . 1808 ($ Given - Provider: Amarilis Simental RN) warfarin (Coumadin) tablet 9 mg 9 mg, Oral, ONCE WARFARIN, 1 dose, On 08/11/20 at 1700, . WASTE DISPOSAL INSTRUCTIONS: P-Listed item. Special Disposal Required. . Continuous Medication Order 08/09/2020 08/10/2020 08/11/2020 niCARdipine (Cardene) 20 mg in 0.9% NaCl 200 mL infusion 0-15 mg/hr (0-150 mL/hr), Intravenous, CONTINUOUS, Starting on Sandi 08/09/20 at 1245, Until 08/11/20 at 1642, Change the infusion site every 12 hours if a peripheral vein is used, Titration Parameters: Standard Parameters, Indication: Hypertension, Initiate infusion at: 2.5 mg/hr, Titrate infusion by: 2.5 mg/hr, Titrate every: 15 minutes, To maintain a: Other - see comments, Notify physician if: SBP greater than - Other - see comments, despite max dose 1317 ($ New Bag/Syringe - Provider: Beena Brooks RN)1357 (Titration/Assessment - Provider: Beena Brooks RN)1648 (Titration/Assessment - Provider: Beena Brooks RN)1741 (Titration/Assessment - Provider: Beena Brooks, DALE)2001 ($ New Bag/Syringe - Provider: Lola Castaneda)2025 (Titration/Assessment - Provider: Lola Castaneda)2114 (Canceled Entry - Provider: Lola Castaneda)2133 (Titration/Assessment - Provider: Lola Castaneda)2313 ($ New Bag/Syringe - Provider: Lola Castaneda) 0205 (Titration/Assessment - Provider: Lola Castaneda)0340 (Stopped - Provider: Lola Castaneda) PRN Medication Order 08/09/2020 08/10/2020 08/11/2020 0.9% NaCl injection 1-10 mL(Linked Group 1) 1-10 mL, Intracatheter, PRN, Other, peripheral line flush, Starting on Sandi 08/09/20 at 0405, Until 08/11/20 at 1642, Flush peripheral IV catheter with 1-10 mL of normal saline before and after medications and prn to clear blood from the line or to verify patency. acetaminophen (Tylenol) tablet 650 mg 650 mg, Oral, EVERY 6 HOURS PRN, Mild Pain, Starting on Sandi 08/09/20 at 0405, Until 08/11/20 at 1642 0950 ($ Given - Provider: Beena Brooks, RN) 2340 ($ Given - Provider: Lina Mendez, DALE) acetaminophen (Tylenol) tablet 650 mg 650 mg, Oral, EVERY 4 HOURS PRN, Fever, For temperature GREATER than 101 , Starting on Sandi 08/09/20 at 0405, Until 08/11/20 at 1642 albuterol HFA (Proventil;Ventolin;Proai r) 108 (90 Base) MCG/ACT inhaler 2 puff 2 puff, Inhalation, 4 TIMES DAILY PRN, SOB, Starting on Sandi 08/09/20 at 1525, Until 08/11/20 at 1642, Shake well before using. WASTE DISPOSAL INSTRUCTION: Send to Pharmacy for Disposal. ukyxqqis-[id number]-jubpmq icone (Maalox;Mylanta) suspension 20 mL 20 mL, Oral, EVERY 6 HOURS PRN, GI Upset, Starting on Sandi 08/09/20 at 0405, Until 08/11/20 at 1642, Shake well before using. bisacodyl (Dulcolax) suppository 10 mg 10 mg, Rectal, DAILY PRN, Constipation, Starting on 08/11/20 at 1240, Until 08/11/20 at 1642 HYDROcodone-acetaminophen (Isabella) 10-325 MG tablet 2 tablet 2 tablet, Oral, EVERY 8 HOURS PRN, Moderate Pain, Starting on Sandi 08/09/20 at 1526, Until 08/11/20 at 1642 0309 ($ Given - Provider: Lola Castaneda)1924 ($ Given - Provider: Isabel Thompson, DALE) 0340 ($ Given - Provider: Lina Mendez RN) HYDROmorphone (Dilaudid) injection 0.5 mg (COMPLETED) 0.5 mg, Intravenous, ONCE PRN, Headache, 1 dose, Starting on Sandi 08/09/20 at 1528, Until Sandi 08/09/20 at 1551 1551 ($ Given - Provider: Beena Brooks, DALE) ondansetron (disintegrating) (Zofran ODT) tablet 4 mg(Linked Group 2) 4 mg, Oral, EVERY 6 HOURS PRN, Nausea/Vomiting, Starting on Sandi 08/09/20 at 0405, Until 08/11/20 at 1642, Dissolved orally on tongue Dissolved orally on tongue ondansetron (Zofran) injection 4 mg(Linked Group 2) 4 mg, Intravenous, EVERY 6 HOURS PRN, Nausea/Vomiting, Starting on Sandi 08/09/20 at 0405, Until 08/11/20 at 1642, Administer IV if patient is NPO, actively vomiting, or unable to swallow. polyethylene glycol 3350 (Miralax) packet 17 g (CANCELED) 17 g, Oral, DAILY PRN, Constipation, Starting on Sandi 08/09/20 at 0405, Until Thu08/10/20 at 1813, Mix in 8 ounces of water, juice, soda, coffee or tea prior to administration 1127 ($ Given - Provider: Beena Brooks RN) polyethylene glycol 3350 (Miralax) packet 17 g 17 g, Oral, 2 TIMES DAILY PRN, Constipation, Starting on Thu08/10/20 at 1815, Until 08/11/20 at 1642, Mix in 8 ounces of water, juice, soda, coffee or tea prior to administration 1925 ($ Given - Provider: Isabel Thompson RN) saline nasal spray ([place]; Baby [place]) 0.65 % nasal spray 1 spray 1 spray, Each Nostril, PRN, Dry Nose, Starting on Sandi 08/09/20 at 0405, Until 08/11/20 at 1642, No limitation on use. throat lozenge 1 lozenge 1 lozenge, Oral, EVERY 2 HOURS PRN, Sore Throat, Starting on Sandi 08/09/20 at 0405, Until 08/11/20 at 1642 Linked Groups Order Group 1: SALINE LOCK, INSERT AND MAINTAIN (CANCELED) Routine, CONTINUOUS, Starting on Sandi 08/09/20 at 0415, Until Specified, New collection And 0.9% NaCl injection 3 mLJump to med 3 mL, Intracatheter, EVERY 8 HOURS, First dose on Sandi 08/09/20 at 0600, Until Discontinued, Flush peripheral IV catheter with 3 mL of normal saline every 8 hours. And 0.9% NaCl injection 1-10 mLJump to med 1-10 mL, Intracatheter, PRN, Other, peripheral line flush, Starting on Sandi 08/09/20 at 0405, Until 08/11/20 at 1642, Flush peripheral IV catheter with 1-10 mL of normal saline before and after medications and prn to clear blood from the line or to verify patency. Group 2: ondansetron (disintegrating) (Zofran ODT) tablet 4 mgJump to med 4 mg, Oral, EVERY 6 HOURS PRN, Nausea/Vomiting, Starting on Sandi 08/09/20 at 0405, Until 08/11/20 at 1642, Dissolved orally on tongue Dissolved orally on tongue Or ondansetron (Zofran) injection 4 mgJump to med 4 mg, Intravenous, EVERY 6 HOURS PRN, Nausea/Vomiting, Starting on Sandi 08/09/20 at 0405, Until 08/11/20 at 1642, Administer IV if patient is NPO, actively vomiting, or unable to swallow. documented in this encounter Care Teams Axminster Weaver Relationship Specialty Start Date End Date Juan Pablo Dominguez MD PCP - General Family Medicine 08/09/20 documented as of this encounter
--- OUTSIDE RECORDS SUMMARY | 2024-03-15 00:46 | XMS_ITS | Patient Health Summary ---
Author Organization [facility] [employer] Address [address] [place] [address] Care Team Providers Care Administrative Law Judge Name Role Phone Juan Pablo Dominguez MD Primary Care Provider Meghan e Note from [facility],non-owned Affiliates and Associated Physician Practices is amultiple site organization consisting of ambulatory clinics and hospital sitesin [place], [place], [place] and [place]. This disclosure is being madepursuant to the Care Everywhere program and may not contain all information available regarding this patient. Last updated 17.[facility] Allergies No known active allergies Medications * Be aware that medications may not be up to date on this document. Alwaysverify current medications with the patient. * amiodarone (CORDARONE) 200 MG tablet Take 100 mg by mouth once daily * warfarin (COUMADIN) 5 MG tablet Take 5 mg by mouth * atorvastatin (LIPITOR) 10 MG tablet Take 10 mg by mouth at bedtime * venlafaxine XR 24hr (EFFEXOR XR) 75 MG capsule Take 150 mg by mouth daily with breakfast * HYDROcodone-acetaminophen (NORCO) 10-325 MG tablet Take 2 tablets by mouth every 8 hours as needed for Pain * ferrous sulfate 325 (65 FE) MG tablet Take 325 mg by mouth once daily * gabapentin (NEURONTIN) 300 MG capsule Take 300 mg by mouth 2 times daily * omeprazole EC (PRILOSEC OTC) 20 MG tablet Take 20 mg by mouth daily before breakfast * Albuterol Sulfate, sensor, 108 (90 Base) MCG/ACT AEPB * ALBUTEROL SULFATE HFA IN Inhale 90 mcg by mouth 4 times daily as needed (SOB) * lisinopril (PRINIVIL; ZESTRIL) 2.5 MG tablet Take 2.5 mg by mouth once daily * docusate sodium (COLACE) 100 MG capsule(Started 08/11/2020) Take 2 (two) capsules by mouth 2 times daily * polyethylene glycol 3350 (MIRALAX) 17 g packet(Started 08/11/2020) Take 17 (seventeen) g by mouth 2 times daily as needed for Constipation * senna (SENOKOT EXTRA STRENGTH) 17.2 MG(Started 08/11/2020) Take 17.2 mg by mouth 2 times daily Active Problems Problem Noted Date Diagnosed Date [...] Mass Index 34.83 08/09/2020 3:48 AM CDT Procedures * CARDIAC RHYTHM STRIP ORDER(Performed 08/13/2020) * BASIC METABOLIC PANEL (CALCIUM TOTAL)(Performed 08/11/2020) * CBC W AUTO DIFFERENTIAL(Performed 08/11/2020) * PT-INR(Performed 08/11/2020) * IR CAROTID CEREBRAL ANGIOGRAM(Performed 08/10/2020) Performed for Dizziness * PT-INR(Performed 08/10/2020) * CBC W AUTO DIFFERENTIAL(Performed 08/10/2020) * COMPREHENSIVE METABOLIC PANEL(Performed 08/10/2020) * GLUCOSE - POINT OF CARE(Performed 08/09/2020) * EKG 12-LEAD(Performed 08/09/2020) Performed for S/P AVR (aortic valve replacement), Elevated troponin * MRI BRAIN WO CONTRAST(Performed 08/09/2020) Performed for Dizziness * PT-INR(Performed 08/09/2020) * ECHOCARDIOGRAM 2D WITH DOPPLER(Performed 08/09/2020) Performed for S/P AVR (aortic valve replacement), Elevated troponin * GROSS + MICRO EXAM(Performed 05/12/2003) Results * CARDIAC RHYTHM STRIP ORDER (08/13/2020 11:57 PM CDT) Narrative 08/13/2020 11:57 PM CDT Ordered by an unspecified provider. Scanned Document CARDIAC SERVICES ORD ERABLES * (ABNORMAL) PT-INR (08/11/2020 6:14 AM CDT) Only the most recent of3 resultswithin the time period is included. PT 16.3(H) 12.1 - 14.8 sec 08/11/2020 6:40 AM CDT [facility] INR 1.4(H) 0.9 - 1.1 08/11/2020 6:40 AM CDT [facility] Blood BLOOD SPECIMEN / Unknown Lab Venipuncture / Unknown 08/11/2020 6:14 AM CDT 08/11/2020 6:24 AM CDT Narrative [facility] - 08/11/2020 6:40 AM CDT Conventional Warfarin Anticoagulant Therapy: INR Reference Range: ??2.0-3.0 Intensive Warfarin Anticoagulant Therapy: INR Reference Range: ? 2.5-3.5 Odette Rowland MD LAB - COAGULATION OR DERABLES [facility] [address] [place] [address] * (ABNORMAL) CBC W AUTO DIFFERENTIAL (08/11/2020 6:14 AM CDT) Only the most recent of2 resultswithin the time period is included. WBC 4.9 4.4 - 10.7 x10E9/L 08/11/2020 6:26 AM CDT [facility] WBC Corrected 08/11/2020 6:26 AM CDT [facility] RBC 3.38(L) 3.80 - 5.20 x10E12/L 08/11/2020 6:26 AM CDT [facility] Hemoglobin 11.1(L) 12.0 - 15.6 gm/dL 08/11/2020 6:26 AM CDT [facility] Hematocrit 34.6(L) 35.9 - 45.5 % 08/11/2020 6:26 AM CDT [facility] MCV 102.4(H) 80.7 - 98.3 fl 08/11/2020 6:26 AM CDT [facility] MCH 32.8 26.7 - 34.0 pg 08/11/2020 6:26 AM CDT [facility] MCHC 32.1 30.8 - 35.9 gm/dL 08/11/2020 6:26 AM CDT [facility] Platelet Count 191 153 - 416 x10E9/L 08/11/2020 6:26 AM CDT [facility] RDW-CV 12.1 12.1 - 14.9 % 08/11/2020 6:26 AM CDT [facility] MPV 12.0 9.4 - 12.9 fl 08/11/2020 6:26 AM CDT [facility] Neutrophils % 52.4 44.0 - 73.0 % 08/11/2020 6:26 AM CDT [facility] Lymphocytes % 26.0 20.0 - 43.0 % 08/11/2020 6:26 AM CDT [facility] Monocytes % 16.1(H) 5.0 - 13.0 % 08/11/2020 6:26 AM CDT [facility] Eosinophils % 4.1 0.0 - 6.0 % 08/11/2020 6:26 AM CDT [facility] Basophils % 1.4 0.0 - 2.0 % 08/11/2020 6:26 AM CDT [facility] Immature Granulocytes 0.0 0 - 1 % 08/11/2020 6:26 AM CDT [facility] Neutrophil Absolute 2.54 2.01 - 7.14 x10E9/L 08/11/2020 6:26 AM CDT [facility] Lymphocytes Absolute 1.26 1.07 - 3.94 x10E9/L 08/11/2020 6:26 AM CDT [facility] Monocytes Absolute 0.78 0.26 - 1.07 x10E9/L 08/11/2020 6:26 AM CDT [facility] Eosinophils Absolute 0.20 0 - 0.47 x10E9/L 08/11/2020 6:26 AM CDT [facility] Basophils Absolute 0.07 0 - 0.08 x10E9/L 08/11/2020 6:26 AM CDT [facility] Immature Granulocytes Absolute 0.00 0.00 - 0.06 x10E9/L 08/11/2020 6:26 AM CDT [facility] nRBC Auto 0 /100 WBC 08/11/2020 6:26 AM [facility] Blood BLOOD SPECIMEN / Unknown Lab Venipuncture / Unknown 08/11/2020 6:14 AM CDT 08/11/2020 6:24 AM CDT Neel Paulino DO LAB - HEMATOLOGY ORDERABLES [facility] [address] [address] * (ABNORMAL) BASIC METABOLIC PANEL (CALCIUM TOTAL) (08/11/2020 6:14 AM CDT) Glucose 75 70 - 105 mg/dL 08/11/2020 6:47 AM T [facility] Sodium 140 136 - 145 mmol/L 08/11/2020 6:47 AM [facility] Potassium 4.5 3.5 - 5.1 mmol/L 08/11/2020 6:47 AM T [facility] Chloride 107 98 - 107 mmol/L 08/11/2020 6:47 AM CDT [facility] CO2 25 23 - 31 mmol/L 08/11/2020 6:47 AM CDT [facility] Calcium 10.0 8.4 - 10.4 mg/dL 08/11/2020 6:47 AM [facility] Anion Gap 8 8 - 18 mmol/L 08/11/2020 6:47 AM T [facility] BUN 23(H) 9.8 - 20.1 mg/dL 08/11/2020 6:47 AM CDT [facility] Creatinine 1.03 0.57 - 1.11 mg/dL 08/11/2020 6:47 AM CDT [facility] eGFR by MDRD 52 mL/min/1.7 3m2 08/11/2020 6:47 AM CDT [facility] eGFR by MDRD >60 mL/min/1.7 3m2 08/11/2020 6:47 AM CDT [facility] Blood BLOOD SPECIMEN / Unknown Lab Venipuncture / Unknown 08/11/2020 6:14 AM CDT 08/11/2020 6:25 AM CDT Neel Paulino DO LAB - CHEMISTRY O RDERABLES [facility] [address] [address] * IR CAROTID CEREBRAL ANGIOGRAM (08/10/2020 9:59 [...] performed with 21-gauge micropuncture needle. A 5 Faroese sheath was inserted over a Bentson wire and connected to a regulated pressurized infusion. A 5 Faroese diagnostic catheter was advanced over the wire [...] ARTERY RUN: DSA run was obtained in SWISS and lateral views. Left common carotid artery [...] a 2.2 mm wide neck. Natalee Solis LICENSED EMBALMER SUPERVISOR-NEWSPAPER PUBLISHER IR ORDERABLES * (ABNORMAL) COMPREHENSIVE METABOLIC PANEL (08/10/2020 5:57 AM CDT) Glucose 85 70 - 105 mg/dL 08/10/2020 6:24 AM CDT [facility] Sodium 139 136 - 145 mmol/L 08/10/2020 6:24 AM CDT [facility] Potassium 4.4 3.5 - 5.1 mmol/L 08/10/2020 6:24 AM CDT [facility] Chloride 107 98 - 107 mmol/L 08/10/2020 6:24 AM CDT [facility] CO2 26 23 - 31 mmol/L 08/10/2020 6:24 AM CDT [facility] Calcium 10.1 8.4 - 10.4 mg/dL 08/10/2020 6:24 AM CDT [facility] Anion Gap 6(L) 8 - 18 mmol/L 08/10/2020 6:24 AM CDT [facility] BUN 17 9.8 - 20.1 mg/dL 08/10/2020 6:24 AM CDT [facility] Creatinine 1.15(H) 0.57 - 1.11 mg/dL 08/10/2020 6:24 AM CDT [facility] Alkaline Phosphatase 63 40 - 150 U/L 08/10/2020 6:24 AM CDT [facility] ALT 12 0 - 61 U/L 08/10/2020 6:24 AM CDT [facility] AST 19 5 - 34 U/L 08/10/2020 6:24 AM CDT [facility] Protein Total 6.0(L) 6.4 - 8.3 gm/dL 08/10/2020 6:24 AM CDT [facility] Albumin 3.3 3.2 - 4.6 gm/dL 08/10/2020 6:24 AM CDT [facility] Bilirubin Total 0.4 0.2 - 1.2 mg/dL 08/10/2020 6:24 AM CDT [facility] eGFR by MDRD 46 mL/min/1.7 3m2 08/10/2020 6:24 AM CDT [facility] eGFR by MDRD 56 mL/min/1.7 3m2 08/10/2020 6:24 AM CDT [facility] Blood BLOOD SPECIMEN / Unknown Lab Venipuncture / Unknown 08/10/2020 5:57 AM CDT 08/10/2020 6:02 AM CDT Odette Rowland MD LAB - CHEMISTRY [place] TEJEDA Performing Organization Address City/[facility]/ZIP Co de Phone Number [facility] [address] [place] [address] * GLUCOSE - POINT OF CARE (08/09/2020 10:43 PM CDT) Glucose WB/POC 88 70 - 106 mg/dL 08/10/2020 11:37 AM CDT [facility] Specimen Type Arterial/C apillary 08/10/2020 11:37 AM CDT [facility] Blood BLOOD SPECIMEN / Unknown 08/09/2020 10:43 PM CDT 08/10/2020 11:37 AM CDT Neel Paulino DO LAB - POINT OF CA RE ORDERABLES Performing Organization Address City/[facility]/ZIP Co de Phone Number [facility] [address] [address] * EKG 12-LEAD (08/09/2020 5:33 PM CDT) Ventricular Rate 66 BPM [facility] MUSE Atrial Rate 66 BPM [facility] P-R Interval 208 ms [facility] MUSE QRS Duration ms 144 ms [facility] Q-T Interval ms 534 ms [facility] QTC Calculation (Bezet) 559 ms [facility] MUSE Calculated R [place] -146 degrees [facility] MUSE Calculated T [place] 22 degrees [facility] Interpretation EKG Suspect arm lead reversal, interpretation assumes no reversal aVR is positive Normal sinus rhythm Left bundle branch block Abnormal ECG No previous ECGs available Suggest repeat ECG and maje sure limb leads correctly applied Confirmed by MD JOHN, CALIXTO Gonzalez ([id number]) on 08/10/2020 7:46:00 AM [facility] 08/09/2020 5:33 PM CDT 08/10/2020 7:46 AM CDT Robin Pierre Jr., MD ECG ORDERABLES [facility] * MRI BRAIN FOR STROKE (08/09/2020 [...] on 08/09/2020 at 2:10 PM Natalee Solis LICENSED EMBALMER SUPERVISOR-NEWSPAPER PUBLISHER MR ORDERABLES * ECHOCARDIOGRAM 2D WITH DOPPLER (08/09/2020 9:00 AM CDT) 08/09/2020 9:00 AM CDT Narrative Procedure Note Robin Pierre Jr., MD - 08/09/2020 [place] [address] Echocardiography Examination Transthoracic Name: ANA MARIA BOBO MPI#: MR#: [id number] Admission Number: [id number] Study Date: 08/09/2020 Study Time: 02:16 PM [...] to opacify the left ventricle. Facility Location: [facility] Indication: S/P AVR, Elevated troponin Procedure Instructional Services Librarian: Ana Maria Chance [facility] Ordering Provider: Robin Pierre MD Reading Physician: [...] 4 Robin Pierre Jr., MD ECHO ORDERABLES Performing Organization Address City/State/[facility] Co de Phone Number [facility] [address] [place] [address] * GROSS + MICRO EXAM (05/12/2003 6:56 PM ELECTRONICS SYSTEM MECHANIC) Result CASE NUMBER [id number] Comment: ORDERING PHYSICIAN ??SOLE HAYDEN SPECIMEN TYPE ?Heart Valve-aortic valve leaflets Date ? 05/13/2003 Physician ?Gladis Gross Description ? Received in formalin labeled `aortic valve leaflet' and consists of several fragments of white tissue ranging in size .2 x .2 x .1 cm. To 2.5 x 1.5 cm. ??The thickness of the valve varies from 0.1 to 0.5 cm. There are a few elevated areas which appear gritty on sectioning. Welfare Analyst sections submitted in one cassette for decal. Tk/[facility] Microscopic Exam ? Sections show cardiac valvular tissue with severe calcific atherosclerosis. Acute inflammation is not seen. ??No bacterial vegetations are present. MC/ Diagnosis ? I. ?Aortic valve leaflet, resection ?A. ??Severe calcific atherosclerosis. MC/ Wire Drawing Machine Operator ? [facility] Pathologist ?Carlos James M.D. [employer]. ?05/15/2003 1448 <1> CPT code ? 38172, 79597 MISCELLANEOUS SAMPLES / Unknown 05/12/2003 6:56 PM ELECTRONICS SYSTEM MECHANIC 05/12/2003 6:57 PM ELECTRONICS SYSTEM MECHANIC Historical Provider LAB - PATHOLOGY/C YTOLOGY ORDERABLES Care Teams Administrative Law Judge Relationship Specialty Start Date End Date Juan Pablo Dominguez MD PCP - General Family Medicine 08/09/20
--- OUTSIDE RECORDS SUMMARY | 2024-03-15 00:46 | XMS_ITS | Referral Summary ---
Author Organization [facility] Address [address] [place] [address] Care Team Providers Care Clinical Biostatistician Name Role Phone Juan Pablo Dominguez MD Primary Care Provider Unavailabl e Source Comments [facility],non-owned Affiliates and Associated Physician Practices is amultiple site organization consisting of ambulatory clinics and hospital sitesin [place], [place], [place] and [place]. This disclosure is being madepursuant to the Care Everywhere program and may not contain all information available regarding this patient. Last updated 17.[facility] Allergies No known active allergies Medications * [...] Mass Index 34.83 08/09/2020 3:48 AM CDT Functional Status Functional Status Response Date of [...] person have difficulty concentrating/remembering/making decisions? No 08/09/2020 Plan of Treatment Not on file Advance Directives * Full Code (Latest Code Status on File) Date Activated Date Inactivated Comments 08/09/2020 4:06 AM 08/11/2020 4:47 PM Care Teams Clinical Biostatistician Relationship Specialty Start Date End Date Juan Pablo Dominguez MD PCP - General Family Medicine 08/09/20
--- OUTSIDE RECORDS SUMMARY | 2024-03-15 00:46 | XMS_ITS | Encounter Summary ---
Author Organization [facility] Address [facility] [facility] [place] [address] Care Team Providers Care Physical Chemistry Professor Name Role Phone Unavailable Primary Care Provider Unavailabl e Encounter Details Date Type Department Care Team (Late st Contact Info) Description 05/12/2003 Orders Only [facility] [address] [place] [address] ProviderCasi MD Social History Tobacco Use Types Packs/Day Years Used Date Smoking Tobacco: Never Assessed Sex and Gender Information Value Date Recorded Sex Assigned at Not on file Gender Identity Not on file Sexual Orientation Not on file documented as of this encounter Plan of Treatment Not on file documented as of this encounter Procedures Procedure Name Priority Date/Time Associated Diagnosis Comments GROSS + MICRO EXAM MEGAN 05/12/2003 6: 56 PM BUILDING CLEANER documented in this encounter Results * GROSS + MICRO EXAM (05/12/2003 6:56 PM BUILDING CLEANER) Result CASE NUMBER [id number] Comment: ORDERING [...] elevated areas which appear gritty on sectioning. Director [employer] sections submitted in one cassette for decal. Tk/[facility] Microscopic Exam ? Sections show cardiac valvular tissue with severe calcific atherosclerosis. Acute inflammation is not seen. ??No bacterial vegetations are present. MC/ Diagnosis ? I. ?Aortic valve leaflet, resection ?A. ??Severe calcific atherosclerosis. MC/ Creamery Worker ? [facility] Pathologist ?Carlos James M.D. [place]. ?05/15/2003 1448 <1> CPT code ? 31740, 03194 MISCELLANEOUS SAMPLES / Unknown 05/12/2003 6:56 PM BUILDING CLEANER 05/12/2003 6:57 PM BUILDING CLEANER Historical Provider LAB - PATHOLOGY/C YTOLOGY ORDERABLES documented in this encounter Visit Diagnoses Not on filedocumented in this encounter
--- OUTSIDE RECORDS SUMMARY | 2024-03-15 00:47 | XMS_ITS | Encounter Summary ---
Author Organization [facility] Address [facility] [place] [address] [place] [address] Care Team Providers Care Food Sanitarian Name Role Phone Dianne Johnson RN Unavailable [phone] Sanjeev Webster DO Primary Care Provider + Reason for Visit * Reason Onset Date Comments Called To Cancel Office Appt. 02/22/2024 Encounter Details Date Type Department Care Team (Late st Contact Info) Description 02/22/[address] [facility] Family & Internal Medicine [id number] [place] [address] Sanjeev Webster DO [address] [place] [address] Called To Cancel Office Appt. Social History Tobacco Use Types Packs/Day Years Used Date Smoking Tobacco: Never Passive Smoke Exposure: Past Smokeless Tobacco: Never Comments:non smoker Alcohol Use Standard Drinks/Week Comments Not Currently 0 (1 standard drink = 0.6 oz pur e alcohol) Humiliation, Afraid, Rape, and Kick questionnair e Answer Date Recorded Within the last year, have y ou been afraid of your partner or ex-partner? No 08/26/2022 Within the last year, have y ou been humiliated or emotionally abused in other ways by your partner or ex-partner? No Within the last year, have y ou been kicked, hit, slapped, or otherwise physically hurt by your partner or ex-partner? No 08/26/2022 Within the last year, have y ou been raped or forced to have any kind of sexual activity by your partner or ex-partner? No 08/26/2022 Social Connection and Isolat ion Panel [NHANES] Answer Date Recorded In a typical week, how many times do you talk on the phone with family, friends, or neighbors? Three times a week 08/26/2022 How often do you get togethe r with friends or relatives? Three times a week 08/26/2022 How often do you attend chur or sabianist services? More than 4 times per year 08/26/2022 Do you belong to any clubs o r organizations such as taoism groups, unions, fraternal or athletic groups, or school groups? No 08/26/2022 How often do you attend meet ings of the clubs or organizations you belong to? Never 08/26/2022 Are you , , di vorced, , never , or living with a partner? 08/26/2022 AUDIT-C Answer Date Recorded Q1: How often do you have a drink containing alcohol? Never 08/26/2022 Q2: How many drinks containi ng alcohol do you have on a typical day when you are drinking? Patient does not drink Q3: How often do you have si x or more drinks on one occasion? Never 08/26/2022 Overall Financial Resource Strain (CARDIA) Answe r Date Recorded How hard is it for you to pa y for the very basics like food, housing, medical care, and heating? Hard 08/26/2022 PHQ-2 Answer Date Recorded Patient Health Questionnaire-2 Score 0 12/08/2023 [facility] - Occupational Stress Questionnaire Answer Date Recorded Do you feel stress - tense, restless, nervous, or anxious, or unable to sleep at night because your mind is troubled all the time - these days? To some extent 08/26/2022 Exercise Vital Sign Answer Date Recorde d On average, how many days pe r week do you engage in moderate to strenuous exercise (like a brisk walk)? 1 day 08/26/2022 On average, how many minutes do you engage in exercise at this level? 10 min 08/26/2022 Hunger Vital Sign Answer Date Recorded Within the past 12 months, y ou worried that your food would run out before you got the money to buy more. Never true 08/27/19 23 Within the past 12 months, t he food you bought just didn't last and you didn't have money to get more. Never true 08/26/2022 PRAPARE - Transportation Answer Date Re corded In the past 12 months, has l ack of transportation kept you from medical appointments or from getting medications? No 08/08 In the past 12 months, has l ack of transportation kept you from meetings, work, or from getting things needed for daily living? No 08/26/2022 Housing Stability Vital Sign Answer Justin e Recorded In the last 12 months, was t here a time when you were not able to pay the mortgage or rent on time? No 08/26/2022 In the last 12 months, how many places have you lived? 1 08/26/2022 In the last 12 months, was t here a time when you did not have a steady place to sleep or slept in a [place] [facility] [place] (including now)? No 08/26/2022 Comments No Sex and Gender Information Value Date Recorded Sex Assigned at Not on file Legal Sex Female 11:18 AM CDT Gender Identity Not on file Sexual Orientation Not on file documented as of this encounter Functional Status * Are you deaf or do you have serious difficulty hearing Answer Date of Assessment Author Status No 08/26/2022 7:46 PM [place] Call RN Active * Are you blind or do you have serious difficulty seeing, even when wearing glasses? Answer Date of Assessment Author Status No 08/26/2022 7:46 PM [place] Call RN Active * Do you have serious difficulty walking or climbing stairs? Answer Date of Assessment Author Status Yes 08/26/2022 7:46 PM [place] Call RN Active * Do you have difficulty dressing or bathing? Answer Date of Assessment Author Status No 08/26/2022 7:46 PM [place] Call RN Active * Because of a physical, mental, or emotional condition, do you have difficulty doing errands alone such as visiting a doctor's office or shopping? Answer Date of Assessment Author Status No 08/26/2022 7:46 PM CDT [place] Gunderson RN Active documented as of this encounter Mental Status * Because of a physical, mental, or emotional condition, do you have serious difficulty concentrating, remembering, or making decisions? Answer Entry Date Author Status No 08/26/2022 7:46 PM CDT [place] Gunderson RN Active documented in this encounter Progress Notes * Dianne Johnson RN - 02/22/2024 1:32 PM CST Please cx appointment with on 03/04/24. She is seeing a Cook Apprentice Pastry through [facility]. Thank you. METRIST documented in this encounter Plan of Treatment Upcoming Encounters Date Type Department Care Team (Late st Contact Info) Description 04/14/2024 2:00 PM OPTOMETRIST Office Visit [facility] Multispecialty Care - [facility] [address] [facility], [address] [place] [phone] Julio Pulido MD [address] [place] [address] documented as of this encounter Goals Goal Patient Goal Type Associated Problems Recent Progress Patient-Stated? Author Health - patient able to perform ADLs independently General On track(2023 9:49 AM CDT) No Dianne Johnson RN Note: 12/17/23: Patient stated she is independent with ASL's. Establish Plan for Symptom Monitoring-CHF General On track(2023 11:36 AM OPTOMETRIST) Dianne Corona RN Note: Patient will recognize symptoms of CHF and report to physician should they occur. Weight gain > 3 lbs over night or > 5 lbs in a week Increased swelling of feet, legs, or stomach Increased or persistent cough Increase in SOB with activity or at rest Increase in number of pillows needed Take medications as prescribed. Follow up with physician appointments as scheduled. Don't stop taking any of your medications or start taking any medications without discussing with your provider. Establish Plan for Symptom Monitoring-COPD General On track(2023 11:36 AM OPTOMETRIST) Dianne Corona RN Note: Patient will recognize symptoms of COPD exacerbation and report to the physician. If severe, patient will seek emergent treatment at [facility] or ER. Notify your provider if you have any of the following symptoms: More breathless than usual Using quick relief inhaler more often than usual Less energy Increased coughing, thicker phlegm/mucus Increased swelling in ankles Poor sleep due to waking up at night with symptoms Medication is not helping Appetite is poor Follow up with your provider as scheduled Take your medications as prescribed Do not stop any of your medications without notifying provider Establish Plan for Symptom Monitoring-DM General On track(2023 4:33 PM OPTOMETRIST) Dianne Corona RN Note: Patient will manage her diabetes and report any symptoms of hypo/hyperglycemia to her provider. Patient to follow diabetic medication regimen. Patient will maintain a carb consistent diet and avoid concentrated sweets. Patient will monitor blood sugar readings at least twice a day and call provider with consistent readings <80 and >200. If symptoms of excessive hunger, blurred vision, shakiness, light headedness, anxiety present, check blood sugar if able or treat the hypoglycemia. If glucose is less than 70, take 15 grams of glucose that is half a cup of juice or milk or regular soda or 3 glucose tablets and recheck in 15 minutes. Patient will follow up with her provider as scheduled. 03/26/23: A1C: 6.2 on 01/12/23. Establish Plan for Symptom Monitoring-HTN General On track(2023 4:33 PM OPTOMETRIST) Dianne Corona RN Note: Patient will monitor B/P several times per week , record readings and report to physician or CC if B/P consistently >130/80 Take your medications as prescribed. Follow up with your provider as scheduled. Take your blood pressure at least several times a week if able. Establish Plan for Symptom Monitoring-paroxy smal atrial fib Lifestyle On track(2023 11:36 AM OPTOMETRIST) No Dianne Johnson, RN Note: Atrial Fib: Patient will recognize symptoms of atrial fibrillation and report to physician should they occur. Establish regular follow ups with Cook Apprentice Pastry, take medications exactly as directed without skipping doses. documented as of this encounter Visit Diagnoses Not on filedocumented in this encounter Additional Health Concerns Assessment Noted Time PHQ-9 Depression Total Score: 13 023 3:56 PM CDT documented as of this encounter Care Teams Food Sanitarian Relationship Specialty Start Date End Date Sanjeev Webster DO [address] [place] [address] PCP - General FAMILY PRACTICE 09/25/20 Dianne Johnson, RN [address] [place] [address] Bee Breeder (Ambulatory) REGISTERED NURSE 08/14/20 documented as of this encounter
--- OUTSIDE RECORDS SUMMARY | 2024-03-15 00:47 | XMS_ITS | Encounter Summary ---
Author Organization [facility] Address [facility] [place] [address] [place] [address] Care Team Providers Care Rn Support Services Name Role Phone Dianne Johnson RN Unavailable [phone] Sanjeev Webster DO Primary Care Provider + Reason for Visit * Reason Comments Allied Health Visit INR Encounter Details Date Type Department Care Team (Latest Contact Info) Description 02/10/2024 1:40 PM CATTLE SHIPPER Allied Health/Nurse Visit [facility] Family & Internal Medicine [facility] [address] [place] [address] Sanjeev Webster DO [address] [place] [address] Allied Health Visit (INR) Social History Tobacco Use Types Packs/Day Years [...] 08/26/2022 How often do you attend chur ch or restorationist services? More than 4 times per year 08/26/2022 Do you belong to any clubs o r organizations such as jehovah's witness groups, unions, fraternal or athletic groups, or [...] Recorded Patient Health Questionnaire-2 Score 0 12/08/2023 [facility] - Occupational Stress Questionnaire Answer Date [...] money to buy more. Never true 08/27/19 Within the past 12 months, t he [...] place to sleep or slept in a halfway (including now)? No 08/26/2022 Comments No Sex [...] Author Status No 08/26/2022 7:46 PM CDT nIdiana Gunderson RN Active documented in this encounter Progress Notes * Natalee Brown RN - 02/10/2024 1:40 PM CST Patient in today for INR. Patient was 1.9 today. PCP gave verbal order to continue with 6 mg m-w and 5 mg - Thursday. Also, recheck in 2 weeks. Patient notified and verbalized understanding. Opportunity given for all questions to be answered, no further needs voiced at this time. LL-02/10/24 LE SHIPPER documented in this encounter Plan of Treatment Upcoming Encounters Date Type Department Care Team (Late st Contact Info) Description 04/14/2024 2:00 PM CATTLE SHIPPER Office Visit [facility] Multispecialty Care - [facility] [address] [facility], [address] [place] [address] Julio Pulido MD [address] [place] [address] documented as of this encounter Goals Goal Patient Goal Type Associated Problems Recent Progress Patient-Stated? Author Health - patient able to perform ADLs independently General On track(2023 9:49 AM CDT) Dianne Corona RN Note: 12/17/23: Patient stated she is independent with ASL's. Establish Plan for Symptom Monitoring-CHF General On track(2023 11:36 AM CATTLE SHIPPER) Dianne Corona RN Note: Patient will recognize [...] Symptom Monitoring-COPD General On track(2023 11:36 AM CATTLE SHIPPER) Dianne Corona RN Note: Patient will recognize [...] Symptom Monitoring-DM General On track(2023 4:33 PM CATTLE SHIPPER) Dianne Corona RN Note: Patient will manage [...] Symptom Monitoring-HTN General On track(2023 4:33 PM CATTLE SHIPPER) Dianne Corona RN Note: Patient will monitor B/P several times per week , record readings and report to physician or CC if B/P consistently >130/80 Take your medications as prescribed. Follow up with your provider as scheduled. Take your blood pressure at least several times a week if able. 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
--- OUTSIDE RECORDS SUMMARY | 2024-03-15 00:47 | XMS_ITS | Encounter Summary ---
Author Organization [facility] Address [facility]. [place], [place] [address] [place] [address] Care Team Providers Care Digital Composer Name Role Phone Dianne Johnson RN Unavailable [phone] Sanjeev Webster DO Primary Care Provider + Reason for Visit * Reason Onset Date Comments Information 02/11/2024 Encounter Details Date Type Department Care Team (Late st Contact Info) Description 02/11/2024 Telephone [facility] Group Family & Internal Medicine [id number] [place] [address] Sanjeev Webster DO [facility] [place] [address] Information Social History Tobacco Use Types Packs/Day Years [...] How often do you attend chur or catholic services? More than 4 times per year 08/26/2022 Do you belong to any clubs o r organizations such as hinduism groups, unions, fraternal or athletic groups, or [...] Recorded Patient Health Questionnaire-2 Score 0 12/08/2023 [facility] Occup[facility] ional Health - Occupational Stress [...] place to sleep or slept in a snf (including now)? No 08/26/2022 Comments No Sex [...] Progress Notes * Dianne Johnson RN - 02/11/2024 4:38 PM CST Patient requested director long term care cx appointment with on 02/19/24. Stated she doesn't want to drive to [place] and tired of seeing so many specialist. Patient did not want to see a horse exerciser closer to home and declines following up with even after director long term care discussedthe importance of following up. CTOR OF VOCATIONAL TRAINING documented in this encounter Plan of Treatment Upcoming Encounters Date Type Department Care Team (Late st Contact Info) Description 04/14/2024 2:00 PM DIRECTOR OF VOCATIONAL TRAINING Office Visit [facility] Group Multispecialty Care - [facility] [address] [facility], [address] [place] [address] Julio Pulido MD [address] [place] [address] documented as of this encounter Goals Goal Patient Goal Type Associated Problems Recent Progress Patient-Stated? Author Health - patient able to perform ADLs independently General On track(2023 9:49 AM CDT) Dianne Corona, DALE Note: 12/17/23: Patient stated she is independent with ASL's. Establish Plan for Symptom Monitoring-CHF General On track(2023 11:36 AM DIRECTOR OF VOCATIONAL TRAINING) Dianne Corona RN Note: Patient will recognize [...] Symptom Monitoring-COPD General On track(2023 11:36 AM DIRECTOR OF VOCATIONAL TRAINING) Dianne Corona RN Note: Patient will recognize [...] Symptom Monitoring-DM General On track(2023 4:33 PM DIRECTOR OF VOCATIONAL TRAINING) Dianne Corona RN Note: Patient will manage [...] Symptom Monitoring-HTN General On track(2023 4:33 PM DIRECTOR OF VOCATIONAL TRAINING) Dianne Corona RN Note: Patient will monitor B/P several times per week , record readings and report to physician or CC if B/P consistently >130/80 Take your medications as prescribed. Follow up with your provider as scheduled. Take your blood pressure at least several times a week if able. Establish Plan for Symptom Monitoring-paroxy smal atrial fib Lifestyle On track(2023 11:36 AM DIRECTOR OF VOCATIONAL TRAINING) No Dianne Johnson, RN Note: Atrial Fib: Patient will recognize symptoms of atrial fibrillation and report to physician should they occur. Establish regular follow ups with Assurance Manager, take medications exactly as directed without skipping doses. documented as of this encounter Visit Diagnoses Not on filedocumented in this encounter Additional Health Concerns Assessment Noted Time PHQ-9 Depression Total Score: 13 023 3:56 PM CDT documented as of this encounter Care Teams Digital Composer Relationship Specialty Start Date End Date Sanjeev Webster DO [address] [place] [address] PCP - General FAMILY PRACTICE 09/25/20 Dianne Johnson, RN [address] [place] [address] Margin Analyst (Ambulatory) REGISTERED NURSE 08/14/20 documented as of this encounter
--- OUTSIDE RECORDS SUMMARY | 2024-03-15 00:47 | XMS_ITS | Encounter Summary ---
Author Organization [facility] Address [facility] [address] [place] [address] Care Team Providers Care Organ Builder Name Role Phone Dianne Johnson RN Unavailable [phone] Sanjeev Webster DO Primary Care Provider + Encounter Details Date Type Department Care Team (Latest Contact Info) Description 02/29/2024 Travel Social History Tobacco Use Types Packs/Day Years [...] How often do you attend chur or amish services? More than 4 times per year [...] Recorded Patient Health Questionnaire-2 Score 0 12/08/2023 [facility] of Occupat ional Health - Occupational [...] place to sleep or slept in a fci (including now)? No 08/26/2022 Comments No Sex [...] 08/26/2022 7:46 PM [place] Call RN Active documented as of this encounter Mental Status * Because of a physical, mental, or emotional condition, do you have serious difficulty concentrating, remembering, or making decisions? Answer Entry Date Author Status No 08/26/2022 7:46 PM [place] Call RN Active documented in this encounter Plan of Treatment Upcoming Encounters Date Type Department Care Team (Late st Contact Info) Description 04/14/2024 2:00 PM ETL SOFTWARE ENGINEER Office Visit [facility] Mult[facility]pecialty Care - [facility] 3 [facility], [address] [place] [address] Julio Pulido MD [address] [place] [address] documented as of this encounter Goals Goal Patient Goal Type Associated Problems Recent Progress Patient-Stated? Author Health - patient able to perform ADLs independently General On track(2023 9:49 AM CDT) Dianne Corona RN Note: 12/17/23: Patient stated she is independent with ASL's. Establish Plan for Symptom Monitoring-CHF General On track(2023 11:36 AM ETL SOFTWARE ENGINEER) Dianne Corona RN Note: Patient will recognize [...] Symptom Monitoring-COPD General On track(2023 11:36 AM ETL SOFTWARE ENGINEER) Dianne Corona RN Note: Patient will recognize [...] Symptom Monitoring-DM General On track(2023 4:33 PM ETL SOFTWARE ENGINEER) Dianne Corona RN Note: Patient will manage [...] Symptom Monitoring-HTN General On track(2023 4:33 PM ETL SOFTWARE ENGINEER) Dianne Corona RN Note: Patient will monitor B/P several times per week , record readings and report to physician or CC if B/P consistently >130/80 Take your medications as prescribed. Follow up with your provider as scheduled. Take your blood pressure at least several times a week if able. Establish Plan for Symptom Monitoring-paroxy smal atrial fib Lifestyle On track(2023 11:36 AM ETL SOFTWARE ENGINEER) Dianne Corona RN Note: Atrial Fib: Patient will recognize symptoms of atrial fibrillation and report to physician should they occur. Establish regular follow ups with Multi Slide Machine Tender, take medications exactly as directed without skipping doses. documented as of this encounter Visit Diagnoses Not on filedocumented in this encounter Additional Health Concerns Assessment Noted Time PHQ-9 Depression Total Score: 13 023 3:56 PM CDT documented as of this encounter Care Teams Organ Builder Relationship Specialty Start Date End Date Sanjeev Webster DO [address] [place] [id number] PCP - General FAMILY PRACTICE 09/25/20 Dianne Johnson, RN [address] [place] [address] Harvest Crew Supervisor (Ambulatory) REGISTERED NURSE 08/14/20 documented as of this encounter
--- OUTSIDE RECORDS SUMMARY | 2024-03-15 00:47 | XMS_ITS | Encounter Summary ---
[facility] Address [facility] [place] [address] [place] [address] Care Team Providers Care Manager Activities Name Role Phone Dianne Johnson RN Unavailable [phone] Sanjeev Webster DO Primary Care Provider + Reason for Visit * Reason Onset Date Comments Appointment Request 01/27/2024 Encounter Details Date Type Department Care Team (Late st Contact Info) Description 01/27/2024 Telephone [facility] Family & Internal Medicine [id number] [place] [address] Sanjeev Webster DO [address] [place] [address] Appointment Request Social History Tobacco Use Types Packs/Day Years [...] often do you attend chur ch or samaritan services? More than 4 times per year 08/26/2022 Do you belong to any clubs o r organizations such as anabaptism groups, unions, fraternal or athletic groups, or [...] Recorded Patient Health Questionnaire-2 Score 0 12/08/2023 [facility] of Occupat ional Health - Occupational Stress [...] place to sleep or slept in a mcfp (including now)? No 08/26/2022 Comments No Sex [...] Author Status No 08/26/2022 7:46 PM [place] [facility] RN Active * Are you blind or [...] documented in this encounter Progress Notes * Yenifer Ingram MA - 01/27/2024 1:49 PM CST Patient is scheduled RACT SHELTERED WORKSHOP SUPERVISOR * Dianne Johnson RN - 01/27/2024 1:31 PM CST Due for PT/INR on 02/02/24. Please contact patient and schedule lab appointment. Patient is aware someone will contact her. RACT SHELTERED WORKSHOP SUPERVISOR documented in this encounter Plan of Treatment Upcoming Encounters Date Type Department Care Team (Late st Contact Info) Description 04/14/2024 2:00 PM CONTRACT SHELTERED WORKSHOP SUPERVISOR Office Visit [facility] Medical [facility] Multispecialty Care - [address], [address] [place] [address] Julio Pulido MD [address] [place] [address] documented as of this encounter Goals Goal Patient Goal Type Associated Problems Recent Progress Patient-Stated? Author Health - patient able to perform ADLs independently General On track(2023 9:49 AM CDT) Dianne Corona, RN Note: 12/17/23: Patient stated she is independent with ASL's. Establish Plan for Symptom Monitoring-CHF General On track(2023 11:36 AM CONTRACT SHELTERED WORKSHOP SUPERVISOR) No Dianne Johnson RN Note: Patient will recognize symptoms of [...] Symptom Monitoring-COPD General On track(2023 11:36 AM CONTRACT SHELTERED WORKSHOP SUPERVISOR) Dianne Corona RN Note: Patient will recognize [...] Symptom Monitoring-DM General On track(2023 4:33 PM CONTRACT SHELTERED WORKSHOP SUPERVISOR) Dianne Corona RN Note: Patient will manage [...] Symptom Monitoring-HTN General On track(2023 4:33 PM CONTRACT SHELTERED WORKSHOP SUPERVISOR) No Johnson, Dianne R, RN Note: Patient will monitor B/P several times per week , record readings and report to physician or CC if B/P consistently >130/80 Take your medications as prescribed. Follow up with your provider as scheduled. Take your blood pressure at least several times a week if able. documented as of this encounter Visit Diagnoses Not on filedocumented in this encounter Additional Health Concerns Assessment Noted Time PHQ-9 Depression Total Score: 13 023 3:56 PM CDT documented as of this encounter Care Teams Manager Activities Relationship Specialty Start Date End Date Sanjeev Webster DO [address] [place] [address] [phone] PCP - General FAMILY PRACTICE 09/25/20 Dianne Johnson, RN [address] [place] [address] Biofuels Plant Manager (Ambulatory) REGISTERED NURSE 08/14/20 documented as of this encounter
--- OUTSIDE RECORDS SUMMARY | 2024-03-15 00:47 | XMS_ITS | Encounter Summary ---
Author Organization [facility] Address [facility]6 [facility]. [place], [place] [address] [place] [address] Care Team Providers Care Drivers' Cash Clerk Name Role Phone Dianne Johnson RN Unavailable [phone] Sanjeev Webster DO Primary Care Provider + Reason for Visit * Reason Onset Date Comments Other 03/07/2024 Encounter Details Date Type Department Care Team (Late st Contact Info) Description 03/07/[address] [facility] Family & Internal Medicine [facility] [address] [place] [address] Sanjeev Webster DO [address] [place] [address] Other Social History Tobacco Use Types Packs/Day Years [...] How often do you attend chur or sikh services? More than 4 times per year 08/26/2022 Do you belong to any clubs o r organizations such as buddhist groups, unions, fraternal or athletic groups, or [...] Recorded Patient Health Questionnaire-2 Score 0 12/08/2023 [facility] of Occupat ional Health - Occupational [...] documented in this encounter Progress Notes * Lashawn Vega - 03/07/2024 12:22 PM CST FYI: Pt says she is going to [facility], her heart is out of rhythm. POINTER CLEANER CAULKER documented in this encounter Plan of Treatment Upcoming Encounters Date Type Department Care Team (Late st Contact Info) Description 04/14/2024 2:00 PM TUCKPOINTER CLEANER CAULKER Office Visit [facility] Medical Group Multispecialty Care - [facility] [address] [facility], [address] [place] [address] Julio Pulido MD [address] [place] [address] documented as of this encounter Goals Goal Patient Goal Type Associated Problems Recent Progress Patient-Stated? Author Health - patient able to perform ADLs independently General On track(2023 9:49 AM CDT) Dianne Corona RN Note: 12/17/23: Patient stated she is independent with ASL's. Establish Plan for Symptom Monitoring-CHF General On track(2023 11:36 AM TUCKPOINTER CLEANER CAULKER) Dianne Corona RN Note: Patient will recognize [...] Symptom Monitoring-COPD General On track(2023 11:36 AM TUCKPOINTER CLEANER CAULKER) Dianne Corona RN Note: Patient will recognize [...] Symptom Monitoring-DM General On track(2023 4:33 PM TUCKPOINTER CLEANER CAULKER) Dianne Corona RN Note: Patient will manage [...] Symptom Monitoring-HTN General On track(2023 4:33 PM TUCKPOINTER CLEANER CAULKER) Dianne Corona RN Note: Patient will monitor B/P several times per week , record readings and report to physician or CC if B/P consistently >130/80 Take your medications as prescribed. Follow up with your provider as scheduled. Take your blood pressure at least several times a week if able. Establish Plan for Symptom Monitoring-paroxy smal atrial fib Lifestyle On track(2023 11:36 AM TUCKPOINTER CLEANER CAULKER) No Dianne Johnson, RN Note: Atrial Fib: Patient will recognize symptoms of atrial fibrillation and report to physician should they occur. Establish regular follow ups with [employer], take medications exactly as directed without skipping doses. documented as of this encounter Visit Diagnoses Not on filedocumented in this encounter Additional Health Concerns Assessment Noted Time PHQ-9 Depression Total Score: 13 023 3:56 PM CDT documented as of this encounter Care Teams Drivers' Cash Clerk Relationship Specialty Start Date End Date Sanjeev Webster DO [address] [place] [address] [phone] PCP - General FAMILY PRACTICE 09/25/20 Dianne Johnson, RN [address] [place] [address] Strategic Sourcing Manager (Ambulatory) REGISTERED NURSE 08/14/20 documented as of this encounter
--- OUTSIDE RECORDS SUMMARY | 2024-03-15 00:47 | XMS_ITS | Encounter Summary ---
Author Organization [facility] Address [facility]6 [facility] [place] [address] [place] [address] Care Team Providers Care Corporate Specialist Name Role Phone Dianne Johnson RN Unavailable [phone] Sanjeev Webster DO Primary Care Provider + Reason for Visit * Reason Onset Date Comments Care Management 02/15/2024 Encounter Details Date Type Department Care Team (Late st Contact Info) Description 02/15/2024 Patient Outreach [facility] Medical Group Family & Internal Medicine [address] [address] Dinane Johnson, RN [address] [place] [address] Care Management Social History Tobacco Use Types Packs/Day Years [...] How often do you attend chur or faith services? More than 4 times per year 08/26/2022 Do you belong to any clubs o r organizations such as congregational groups, unions, fraternal or athletic groups, or [...] Recorded Patient Health Questionnaire-2 Score 0 12/08/2023 [facility] of Occupat ional Health - [...] place to sleep or slept in a half-way (including now)? No 08/26/2022 Comments No Sex [...] Progress Notes * Dianne Johnson RN - 02/15/2024 9:33 AM CST Contacted [facility] general surgery office and spoke to Iva. Patient scheduled to see on 02/26/24 at 10:30 am. Address is [address] [place] [address] [address] in [place]. Phone number [phone].Iva stated this is the fourth time they've scheduled this appointment. Contacted patient regarding the appointment above. CC will remind patient of appointment closer to that time. Patient is agreeable. IFIED MEDICAL TECHNICIAN documented in this encounter Plan of Treatment Upcoming Encounters Date Type Department Care Team (Late st Contact Info) Description 04/14/2024 2:00 PM CERTIFIED MEDICAL TECHNICIAN Office Visit [facility] Medical Group Multispecialty Care - [facility] [address] [facility], [address] [place] [address] Julio Pulido MD [address] [place] [address] documented as of this encounter Goals Goal Patient Goal Type Associated Problems Recent Progress Patient-Stated? Author Health - patient able to perform ADLs independently General On track(2023 9:49 AM CDT) Dianne Corona RN Note: 12/17/23: Patient stated she is independent with ASL's. Establish Plan for Symptom Monitoring-CHF General On track(2023 11:36 AM CERTIFIED MEDICAL TECHNICIAN) Dianne Corona RN Note: Patient will recognize [...] Symptom Monitoring-COPD General On track(2023 11:36 AM CERTIFIED MEDICAL TECHNICIAN) Dianne Corona RN Note: Patient will recognize [...] Symptom Monitoring-DM General On track(2023 4:33 PM CERTIFIED MEDICAL TECHNICIAN) Dianne Corona RN Note: Patient will manage [...] Symptom Monitoring-HTN General On track(2023 4:33 PM CERTIFIED MEDICAL TECHNICIAN) Dianne Corona RN Note: Patient will monitor B/P several times per week , record readings and report to physician or CC if B/P consistently >130/80 Take your medications as prescribed. Follow up with your provider as scheduled. Take your blood pressure at least several times a week if able. Establish Plan for Symptom Monitoring-paroxy smal atrial fib Lifestyle On track(2023 11:36 AM CERTIFIED MEDICAL TECHNICIAN) Dianne Corona RN Note: Atrial Fib: Patient will recognize symptoms of atrial fibrillation and report to physician should they occur. Establish regular follow ups with [facility], take medications exactly as directed without skipping doses. documented as of this encounter Visit Diagnoses Not on filedocumented in this encounter Additional Health Concerns Assessment Noted Time PHQ-9 Depression Total Score: 13 023 3:56 PM CDT documented as of this encounter Care Teams Corporate Specialist Relationship Specialty Start Date End Date Sanjeev Webster DO [address] [place] [id number] PCP - General FAMILY PRACTICE 09/25/20 Dianne Johnson RN [address] [place] [address] Bit Tapper (Ambulatory) REGISTERED NURSE 08/14/20 documented as of this encounter
--- OUTSIDE RECORDS SUMMARY | 2024-03-15 00:47 | XMS_ITS | Encounter Summary ---
Author Organization [facility] Address [facility] [place] [address] [place] [address] Care Team Providers Care Early Childhood Teacher Assistant Name Role Phone Dianne Johnson RN Unavailable [phone] Sanjeev Webster DO Primary Care Provider + Reason for Visit * Reason Comments Gout The patient presents for a 2 month follow up. Diabetes Follow up. No concer ns. Encounter Details Date Type Department Care Team (Late st Contact Info) Description 02/29/2024 1:40 PM PRACTICE PHYSICIAN Office Visit [facility] Family & Internal Medicine [address] [address] Sanjeev Webster DO [address] [place] [id number] Gout (The patient presents for a 2 month follow up.); Diabetes (Follow up. No concerns. ) Social History Tobacco Use Types Packs/Day Years [...] any clubs o r organizations such as temple groups, unions, fraternal or athletic groups, or [...] Recorded Patient Health Questionnaire-2 Score 0 12/08/2023 [facility] Occupat ional Health - Occupational Stress [...] place to sleep or slept in a usp (including now)? No 08/26/2022 Comments No Sex and Gender Information Value Date Recorded Sex Assigned at Not on file Legal Sex Female 11:18 AM CDT Gender Identity Not on file Sexual Orientation Not on file documented as of this encounter Last Filed Vital Signs Vital Sign Reading Time Taken Comments Blood Pressure 128/86 02/29/2024 1:52 PM PRACTICE PHYSICIAN Pulse 76 02/29/2024 1:52 PM PRACTICE PHYSICIAN Temperature 37 ??C (98.6 ??F) 02/29/2024 1:52 PM PRACTICE PHYSICIAN Respiratory Rate 16 02/29/2024 1:52 PM PRACTICE PHYSICIAN Oxygen Saturation 98% 02/29/2024 1:52 PM PRACTICE PHYSICIAN Inhaled Oxygen Concentration - - Weight 80.1 kg (176 lb 9.6 oz) 02/29/2024 1:52 P M PRACTICE PHYSICIAN Height 165.1 cm (5' 5 ) 02/29/2024 1:52 PM PRACTICE PHYSICIAN Body Mass Index 29.39 02/29/2024 1:52 PM PRACTICE PHYSICIAN documented in this encounter Functional Status * Are you [...] Call RN Active documented in this encounter Progress Notes * Sanjeev Webster, DO - 02/29/2024 1:40 PM CST Images from the original note were not included. GENERAL OFFICE VISIT Encounter Date: 02/29/2024 Chief Complaint: 78-year-old female presents for Gout (The patient presents for a 2 month follow up.) and Diabetes (Follow up. No concerns. ) HPI: Pt presents for left great toe pain which we have diagnosed as gout previously. We had given pt colchicine previously. She stopped taking it, and then noticed some acute worsening once stopping it. Pt is still taking it at this time. Pt is taking furosemide. Pt did not want to follow-up with hematology/oncology. She is needing to recheck these labs. Pt appears to be on alendronate from Dr. Mattson. Pt does not appear to be on Prolia at this time. We will request data clarifying this. 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 She was recommended to monitor per her report today. Patient presents for follow-up on essential hypertension. Patient has had hypertension for multipleyears. Her levels are controlled today. Current medications include metoprolol and furosemide. Patient's blood pressure is stable today. No side effects noted from medications. Pt is noted to have ass ociated T2DM and CKD stage 3b. Patient has Type 2 Diabetes. Patient has had diabetes for multiple years. Medications include semaglutide specifically for lowering blood sugars. BS logs range: stable. Patient's weight has not changed. Pt has neuropathy and PAD, both of which are stable. Pt is on gabapentin for neuropathy. No claudication at this time. HGB A1C Date Value Ref Range Status 02/29/2024 5.5 % Final 11/19/2023 6.8 % Final 08/06/2023 6.5 % Final 01/12/2023 6.2 % Final MICROALBUMIN (U) Date Value Ref Range Status 08/14/2023 3.9 <20 MG/L Final Review of Systems Constitutional: Negative for fever. Respiratory: Negative for shortness of breath. Cardiovascular: Negative for chest pain. Gastrointestinal: See HPI Musculoskeletal: See HPI Skin: Negative for rash. Patient Active Problem List Diagnosis Abnormal stress test Chronic anticoagulation Coronary artery disease involving [place] coronary artery of [place] heart without angina pectoris H/O mechanical aortic valve replacement Hypertensive heart disease with congestive heart failure ([facility]) LBBB (left bundle branch block) Myopathy AVZQUEZ (obstructive sleep apnea) Paroxysmal atrial flutter ([facility]) Benign hypertension with CKD (chronic kidney disease) stage III ([facility]/HCC) Memory deficits Hearing deficit, bilateral History of cataract extraction, unspecified laterality Vitamin D deficiency Hypercalcemia Chronic frontal sinusitis Constipation, unspecified constipation type Chronic bilateral low back pain without sciatica Iron deficiency anemia, unspecified iron deficiency anemia type Disorder of skin of trunk Anemia Body mass index (BMI) 31.0-31.9, adult 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) Benign hypertension with stage 3b chronic kidney disease ([facility]) Cobalamin deficiency Compression fracture of thoracic vertebra ([facility]) Depression Diabetic polyneuropathy ([facility]/HCC) Disorder of rotator cuff Diverticular disease Dysphagia Elevated troponin Gastroesophageal reflux disease without esophagitis Hyperlipidemia, unspecified hyperlipidemia type Vascular dementia ([facility]) Unknown and unspecified causes of morbidity Syncope, unspecified syncope type Wrist joint pain Requires lifelong warfarin therapy Hyperparathyroidism ([facility]) Presence of prosthetic heart valve Plantar fascial fibromatosis Peripheral neuropathy Parathyroid adenoma Polymyalgia rheumatica ([facility]) Osteoporosis Numbness Muscle cramps Closed stable burst fracture of sixth thoracic vertebra, initial encounter ([facility]) Chest pain Contusion of scalp Knee pain Localized, primary osteoarthritis Osteoarthritis of knee Traumatic closed displaced fracture of distal end of radius Shoulder joint pain Hyperlipidemia associated with type 2 diabetes mellitus ([facility]) Hematoma Anxiety Diastolic heart failure ([facility]) Internal hemorrhoids Leukoencephalopathy Major depression single episode, in partial remission ([facility]) Metacarpal bone fracture Mitral valve disorder Peripheral arterial occlusive disease ([facility]) Primary osteoarthritis involving multiple joints Vision loss COPD (chronic obstructive pulmonary disease) ([facility]) Diarrhea Drug-induced constipation H/O mechanical aortic valve replacement Age-related osteoporosis with current pathological fracture Care Management Physical deconditioning Chronic heart failure with preserved ejection fraction (HFpEF) ([facility]) Paroxysmal atrial fibrillation ([facility]) Hypertension associated with type 2 diabetes mellitus ([facility]) Encounter for prophylactic measures, unspecified Graves' disease Cirrhosis of liver without ascites, unspecified hepatic cirrhosis type ([facility]) Stage 3b chronic kidney disease ([facility]) OLIVE (acute kidney injury) ([facility]) Heart failure with mildly reduced ejection fraction (HFmrEF) ([facility]) Hyperthyroidism 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 Anxiety Atrial fibrillation with rapid ventricular response ([facility]) 08/22/2020 Atrial flutter ([facility]) Cataract Chronic anticoagulation due to mechanical heart valve Chronic pain Diabetes mellitus ([facility]) Gout, unspecified right foot H/O mechanical aortic valve replacement 2003 Hypertension Kidney stone 02/03/2017 On amiodarone therapy 05/21/2021 Past Surgical History: Procedure Laterality Date REPAIR HEART WOUND Family History Problem Relation Name Age of Onset Heart Father Diabetes Father Heart Mother Social History Tobacco Use Smoking status: Never Passive exposure: Past Smokeless tobacco: Never Tobacco comments: non smoker Vaping Use Vaping status: Never Used Substance Use Topics Alcohol use: Not Currently Drug use: Yes Types: Hydrocodone Comment: chronic pain Immunization History Administered Date(s) Administered Fluzone High Dose (IIV, trivalent, 0.5mL) 12/08/2023 Fluzone High Dose - >Age 65 (Prefilled Syringe) 12/03/2017, 12/13/2018, 02/27/2020, 12/13/2020, 12/23/2021, 01/12/2023 Influenza (Generic) 02/26/2012, 12/02/2012, 11/30/2013, 12/23/2013, 12/27/2014 Influenza Adult (Generic) 02/26/2012, 11/30/2013, 12/07/2014, 12/25/2016, 12/03/2017, 12/13/2018 [facility] COVID-19 (ESTEVES CAP), MRNA, LNP-S, PF, 30 MCG/0.3 ML ROGERS-SUCROSE, IM 08/29/2021 [facility] COVID-19 (ORIGINAL FORMULATION, PURPLE CAP) mRNA, LNP-S, PF, 30 MCG/0.3 ML DOSE 05/10/2020, 06/01/2020, 02/23/2021 Pneumococcal (Pneumovax 23) 03/30/2017 Pneumococcal (Prevnar 13) 06/15/2015 Shingrix 11/11/2022 Td 07/22/2014 Td (Generic) 07/22/2014 Td (TDVAX) 07/22/2014 Tdap (Boostrix) 09/05/2020 Tdap (Generic) 06/05/2016, 09/05/2020 Tetanus/Diptheria 07/22/2014 Zoster (Zostavax) 20039 Unt/0.65Ml 12/25/2015 Current Outpatient Medications Medication Sig Dispense Refill acetaminophen (TYLENOL) 500 MG tablet Take 1 tablet (500 mg total) by mouth daily as needed. No more then 2500 mg per day. albuterol sulfate HFA 108 (90 Base) MCG/ACT inhaler INHALE 2 PUFFS BY MOUTH EVERY 6 HOURS NEEDEDFOR WHEEZING 18 g 5 alendronate (FOSAMAX) 35 MG tablet Take 1 tablet (35 mg total) by mouth every 7 days. ALPRAZolam (XANAX) 0.5 MG tablet TAKE 1/2 (ONE-HALF) TABLET BY MOUTH NIGHTLY NEEDED FOR SLEEP 15tablet 0 B Complex Cap capsule Take 1 capsule by mouth daily. Blood Glucose Monitoring Suppl (ONE TOUCH ULTRA 2) w/Device Kit 1 Device by Does not apply route daily. 1 kit 0 Cholecalciferol (VITAMIN D3) 25 MCG (1000 UT) Cap Take 1 capsule (1,000 Units total) by mouth daily. cinacalcet (SENSIPAR) 30 MG tablet Take 0.5 tablets (15 mg total) by mouth daily. colchicine 0.6 MG tablet Day 1: 1.2 mg at the first sign of flare, followed by 0.6 mg after 1 hour.Day 2 and after: take 0.6 mg once daily until resolves 30 tablet 0 denosumab (PROLIA) 60 MG/ML injection ferrous sulfate, 65 mg elemental, 325 (65 FE) MG tablet Take 1 tablet (325 mg total) by mouth dailywith breakfast. furosemide (LASIX) 20 MG tablet Take 1 tablet by mouth once daily 30 tablet 0 gabapentin (NEURONTIN) 300 MG capsule TAKE 1 CAPSULE BY MOUTH THREE TIMES DAILY 270 capsule 0 Glucose Blood (BLOOD GLUCOSE TEST STRIPS) Strip 1 Device by Does not apply route daily. 100 strip 3 HYDROcodone-acetaminophen (NORCO) 5-325 MG tablet Take 1-2 tablets by mouth every 6 (six) hours as needed for Pain. Indications: Chronic Pain 60 tablet 0 Lancets (ONETOUCH ULTRASOFT) lancets 1 each by Other route as needed. Use as instructed 100 each 3 methIMAzole (TAPAZOLE) 5 MG tablet Take 1 tablet (5 mg total) by mouth daily. metoprolol succinate ER (TOPROL-XL) 25 MG 24 hr tablet Take 1 tablet (25 mg total) by mouth daily. 90 tablet 0 omeprazole (PRILOSEC) 40 MG capsule Take 1 capsule by mouth once daily 90 capsule 0 potassium chloride CR (K-TAB) 10 MEQ Tab CR tablet Take 1 tablet by mouth once daily 90 tablet 1 Semaglutide (OZEMPIC, 0.25 OR 0.5 MG/DOSE, SC) Inject 0.5 mg into the skin once a week. simvastatin (ZOCOR) 10 MG tablet Take 1 tablet (10 mg total) by mouth nightly at bedtime. 90 tablet3 venlafaxine XR (EFFEXOR-XR) 150 MG 24 hr capsule Take 1 capsule by mouth once daily 90 capsule 0 vitamin B-12 (CYANOCOBALAMIN) (CYANOCOBALAMIN) 1000 mcg tablet Take 1 tablet (1,000 mcg total) by mouth daily. WALKER MISC, DME, 1 Device by Does not apply route as needed. 1 Device 0 warfarin (COUMADIN) 1 MG tablet Take 1 tablet (1 mg total) by mouth daily. 30 tablet 0 warfarin (COUMADIN) 2 MG tablet Take 1 tablet (2 mg total) by mouth daily. 30 tablet 1 warfarin (COUMADIN) 5 MG tablet Take 1 tablet by mouth once daily 30 tablet 0 warfarin (COUMADIN) 6 MG tablet Take 1 tablet (6 mg total) by mouth daily. 90 tablet 0 No current facility-administered medications for this visit. Review of patient's allergies indicates: Allergen Reactions Atorvastatin Leg Pain Leg pain/cramps. Resolved after stopping. Cortisone Unknown and Rash Tape Contact Dermatitis Benzalkonium Other (see comment) Gramicidin Other (see comment) Hydrocortisone Other (see comment) Medical Adhesive Remover Other (see comment) Rosuvastatin Leg Pain Cramping in legs Bacitracin Other (see comment) and Rash Neomycin Other (see comment) and Rash Polymyxin B Other (see comment) and Rash Objective: Filed Vitals: 02/29/24 1352 BP: 128/86 Pulse: 76 Resp: 16 Temp: 98.6 ??F (37 ??C) TempSrc: Skin SpO2: 98% Weight: 80.1 kg (176 lb 9.6 oz) Height: 1.651 m (5' 5 ) Physical Exam Vitals and nursing note reviewed. HENT: Head: Normocephalic and atraumatic. Right Ear: External ear normal. Left Ear: External ear normal. Eyes: Conjunctiva/sclera: Conjunctivae normal. Cardiovascular: Rate and Rhythm: Normal rate and regular rhythm. Heart sounds: Normal heart sounds. No murmur heard. No friction rub. No gallop. Pulmonary: Effort: Pulmonary effort is normal. No respiratory distress. Breath sounds: Normal breath sounds. No wheezing or rales. Abdominal: Palpations: Abdomen is soft. Tenderness: There is no abdominal tenderness. Neurological: Mental Status: She is alert. Assessment & Plan: Radha was seen today for gout and diabetes. Diagnoses and all orders for this visit: Type 2 diabetes mellitus with stage 3b chronic kidney disease, without long-term current use of insulin ([facility]) - HEMOGLOBIN, GLYCOSYLATED - COLLECT.CAPILLARY (FNGR,HEEL,EAR) - CBC W/DIFF AUTOMATED; Future - COMPREHENSIVE METABOLIC PANEL; Future - TSH W/REFLEX; Future - URIC ACID BLOOD; Future - FERRITIN; Future - IRON SAT PANEL (IRON,IBC,%SAT); Future - HAPTOGLOBIN, QUANT; Future - CBC W/DIFF AUTOMATED - COMPREHENSIVE METABOLIC PANEL - TSH W/REFLEX - URIC ACID BLOOD - FERRITIN - IRON SAT PANEL (IRON,IBC,%SAT) - HAPTOGLOBIN, QUANT Acute gout of left foot, unspecified cause - CBC W/DIFF AUTOMATED; Future - COMPREHENSIVE METABOLIC PANEL; Future - TSH W/REFLEX; Future - URIC ACID BLOOD; Future - FERRITIN; Future - IRON SAT PANEL (IRON,IBC,%SAT); Future - HAPTOGLOBIN, QUANT; Future - CBC W/DIFF AUTOMATED - COMPREHENSIVE METABOLIC PANEL - TSH W/REFLEX - URIC ACID BLOOD - FERRITIN - IRON SAT PANEL (IRON,IBC,%SAT) - HAPTOGLOBIN, QUANT Benign hypertension with stage 3b chronic kidney disease ([facility]) Colonic fistula Anemia, unspecified type - CBC W/DIFF AUTOMATED; Future - COMPREHENSIVE METABOLIC PANEL; Future - TSH W/REFLEX; Future - URIC ACID BLOOD; Future - FERRITIN; Future - IRON SAT PANEL (IRON,IBC,%SAT); Future - HAPTOGLOBIN, QUANT; Future - CBC W/DIFF AUTOMATED - COMPREHENSIVE METABOLIC PANEL - TSH W/REFLEX - URIC ACID BLOOD - FERRITIN - IRON SAT PANEL (IRON,IBC,%SAT) - HAPTOGLOBIN, QUANT Other chronic pain - HYDROcodone-acetaminophen (NORCO) 5-325 MG tablet; Take 1-2 tablets by mouth every 6 (six) hours as needed for Pain. Indications: Chronic Pain Anxiety - ALPRAZolam (XANAX) 0.5 MG tablet; TAKE 1/2 (ONE-HALF) TABLET BY MOUTH NIGHTLY NEEDED FOR SLEEP Senile osteoporosis Discussion/Summary: Will order labs as per above. Continue current meds as prescribed; consider allopurinol depending upon kidney function. Will need to be on colchicine while on titration. Will await records to clarifyalendronate versus Prolia. Will refill meds. Will have pt f/u in 2 months or sooner if needed. Pt v/u. I personally spent a total of 40 minutes on the day of the encounter. This includes [id number]-[id number] and uxu-nvqh-lb-face time I provided on the day of the encounter & excludes time spent performing separately reportable services. Sanjeev Webster DO TICE PHYSICIAN documented in this encounter Plan of Treatment Upcoming Encounters Date Type Department Care Team (Late st Contact Info) Description 04/14/2024 2:00 PM PRACTICE PHYSICIAN Office Visit [facility] Multispecialty Care - [facility] [address], [address] [place] [address] Julio Pulido MD [address] [place] [address] Scheduled Orders Name Type Priority Associated Diagnoses Orde r Schedule CBC W/DIFF AUTOMATED Lab Routine Type 2 diabetes mellitus with stage 3b chronic kidney disease, without long-term current use of insulin ([facility]) Acute gout of left foot, unspecified cause Anemia, unspecified type Expected: 02/29/2024, Expires: 02/28/2025 COMPREHENSIVE METABOLIC PANEL Lab Routine Type 2 diabetes mellitus with stage 3b chronic kidney disease, without long-term current use of insulin ([facility]) Acute gout of left foot, unspecified cause Anemia, unspecified type Expected: 02/29/2024, Expires: 02/28/2025 TSH W/REFLEX Lab Routine Type 2 diabetes mellitus with stage 3b chronic kidney disease, without long-term current use of insulin ([facility]) Acute gout of left foot, unspecified cause Anemia, unspecified type Expected: 02/29/2024, Expires: 02/28/2025 URIC ACID BLOOD Lab Routine Type 2 diabetes mellitus with stage 3b chronic kidney disease, without long-term current use of insulin ([facility]) Acute gout of left foot, unspecified cause Anemia, unspecified type Expected: 02/29/2024, Expires: 02/28/2025 FERRITIN Lab Routine Type 2 diabetes mellitus with stage 3b chronic kidney disease, without long-term current use of insulin ([facility]) Acute gout of left foot, unspecified cause Anemia, unspecified type Expected: 02/29/2024, Expires: 02/28/2025 IRON SAT PANEL (IRON,IBC,%SAT) Lab Routine Type 2 diabetes mellitus with stage 3b chronic kidney disease, without long-term current use of insulin ([facility]) Acute gout of left foot, unspecified cause Anemia, unspecified type Expected: 02/29/2024, Expires: 02/28/2025 HAPTOGLOBIN, QUANT Lab Routine Type 2 diabetes mellitus with stage 3b chronic kidney disease, without long-term current use of insulin ([facility]) Acute gout of left foot, unspecified cause Anemia, unspecified type Expected: 02/29/2024, Expires: 02/28/2025 documented as of this encounter Goals Goal Patient Goal Type Associated Problems Recent Progress Patient-Stated? Author Health - patient able to perform ADLs independently General On track(2023 9:49 AM CDT) Dianne Corona RN Note: 12/17/23: Patient stated she is independent with ASL's. Establish Plan for Symptom Monitoring-CHF General On track(2023 11:36 AM PRACTICE PHYSICIAN) Dianne Corona RN Note: Patient will recognize [...] Symptom Monitoring-COPD General On track(2023 11:36 AM PRACTICE PHYSICIAN) Dianne Corona RN Note: Patient will recognize [...] Symptom Monitoring-DM General On track(2023 4:33 PM PRACTICE PHYSICIAN) Dianne Corona RN Note: Patient will manage [...] Symptom Monitoring-HTN General On track(2023 4:33 PM PRACTICE PHYSICIAN) Dianne Corona RN Note: Patient will monitor B/P several times per week , record readings and report to physician or CC if B/P consistently >130/80 Take your medications as prescribed. Follow up with your provider as scheduled. Take your blood pressure at least several times a week if able. Establish Plan for Symptom Monitoring-paroxy smal atrial fib Lifestyle On track(2023 11:36 AM PRACTICE PHYSICIAN) Dianne Corona RN Note: Atrial Fib: Patient will recognize symptoms of atrial fibrillation and report to physician should they occur. Establish regular follow ups with Manufacturing Automation Engineer, take medications exactly as directed without skipping doses. documented as of this encounter Procedures Procedure Name Priority Date/Time Associated Diagnosis Comments COLLECT.CAPILLARY (FNGR,HEEL,EAR) Routine 02/29/2024 1:44 PM PRACTICE PHYSICIAN Type 2 diabetes mellitus with stage 3b chronic kidney disease, without long-term current use of insulin ([facility]) HEMOGLOBIN, GLYCOSYLATED Routine 02/29/2024 Type 2 diabetes mellitus with stage 3b chronic kidney disease, without long-term current use of insulin ([facility]) documented in this encounter Results * HEMOGLOBIN, GLYCOSYLATED (02/29/2024) HGB A1C 5.5 % [facility] 02/29/2024 us Sanjeev Webster DO LABORATORY Final Re sult [facility] [address] [place] [address], documented in this encounter Visit Diagnoses Diagnosis Type 2 diabetes mellitus with stage 3b chronic kidney disease, without long-term current use of insulin ([facility])- Primary Acute gout of left foot, unspecified cause Benign hypertension with stage 3b chronic kidney disease ([facility]) Colonic fistula Fistula of intestine, excluding rectum and anus Anemia, unspecified type Other chronic pain Anxiety Anxiety state, unspecified Senile osteoporosis documented in this encounter Additional Health Concerns Assessment Noted Time PHQ-9 Depression Total Score: 13 12/11/ 023 3:56 PM CDT documented as of this encounter Care Teams Early Childhood Teacher Assistant Relationship Specialty Start Date End Date Sanjeev Webster DO [address] [place] [id number] PCP - General FAMILY PRACTICE 09/25/20 Dianne Johnson, RN [address] [place] [address] Ditch Cleaner (Ambulatory) REGISTERED NURSE 08/14/20 documented as of this encounter
--- OUTSIDE RECORDS SUMMARY | 2024-03-15 00:47 | XMS_ITS | Encounter Summary ---
Author Organization [facility] Address [facility] [place] [address] [place] [address] Care Team Providers Care Business Applications Specialist Name Role Phone Casey Johnson RN Unavailable [phone] Sanjeev Webster DO Primary Care Provider + Reason for Visit * Reason Onset Date Comments Care Management 01/27/2024 Encounter Details Date Type Department Care Team (Late st Contact Info) Description 01/27/2024 Patient Outreach [facility] Family & Internal Medicine [address] [address] Casey Johnson, RN [address] [place] [address] Care Management Social History Tobacco [...] How often do you attend chur or hindu services? More than 4 times per year 08/26/2022 Do you belong to any clubs o r organizations such as anglican groups, unions, fraternal or athletic groups, or [...] Recorded Patient Health Questionnaire-2 Score 0 12/08/2023 [facility] - Occupational [...] place to sleep or slept in a correction (including now)? No 08/26/2022 Comments No Sex [...] documented in this encounter Progress Notes * Casey Johnson RN - 01/27/2024 6:21 AM CST Chronic Care Management: Patient concerns or urgent matters that need addressed: None identified during this phone call. Patient Status: Contacted patient today and reminded her of upcoming appointment with on 01/29/24 at 1:30 PM. Encouraged to arrive 15 to 20 minutes early to complete paper work. Gave patient 's address. She wrote down the information. Denies any issues with COPD or CHF exacerbation s/s. Stated no increased sob, swelling or cough. Reports doing better with gout and getting around better. Reports gout flair up every once in a while.Patient weighs herself at [employer] every Thursday. Stated she didn't go today. Reviewed lab results and informed patient she is due for a PT/INR on 02/02/24. CC will reach out [facility] nursing team to schedule appointment to get lab work done. Patient is agreeable. Denies any issues with hypoglycemia or hyperglycemia s/s. Patient is agreeable for CC to contact her in a couple of weeks. Encouraged to call before that time if needed. Patient verbalizes understanding and thanked CC for calling. Plan of Care: community health coordinator will continue to follow up by phone, provide resources when needed, educate on disease management, and assess chronic conditions. Patient Goals: Goals Addressed This Visit's Progress Establish Plan for Symptom Monitoring-CHF On track Patient will recognize symptoms of CHF and [...] your provider. Establish Plan for Symptom Monitoring-COPD On track Patient will recognize symptoms of COPD exacerbation [...] notifying provider Establish Plan for Symptom Monitoring-DM On track Patient will manage her diabetes and report [...] a cup of juice or milk or regularsoda or 3 glucose tablets and recheck in 15 minutes. Patient will follow up with her provider as scheduled. 03/26/23: A1C: 6.2 on 01/12/23. Upcoming Visit Appointments: Future Appointments Date Time Provider Department Center 02/29/2024 1:40 PM Sanjeev Webster DO [id number] [place] 03/04/2024 1:00 PM Sania Gomez MD [facility] 04/14/2024 2:00 PM MD NALINI Gutierrez MG [facility] Quality care gaps: Health Maintenance Topic Date Due Annual Medicare Wellness Visit Never done Zoster Vaccines (3 of 3) 02/17/2024 (Originally 01/06/2023) RSV Immunization or 60+ Years (1 - 1-dose 60+ series) 02/17/2024 (Originally 2004) COVID-19 Vaccine (2023- season) 2112 (Originally 11/08/2023) Diabetes: Retinopathy Eye Exam 04/21/2024 Hemoglobin A1C 05/18/2024 Lipid Panel 08/13/2024 Kidney Health Evaluation 08/13/2024 DTaP, Tdap and Td Vaccines (4 - Td or Tdap) 09/05/2030 Dexa Scan (General) Completed Influenza Adult Completed Pneumococcal Vaccine: 65+ Years Completed Hepatitis C Completed Meningococcal Vaccine Aged Out RSV Immunizations Under 20 Months Aged Out Problem List: Patient Active Problem List Diagnosis Abnormal stress test Chronic anticoagulation Coronary artery disease involving northwestern shoshone coronary artery of northwestern shoshone heart without angina pectoris H/O mechanical aortic valve replacement Hypertensive heart disease with congestive heart failure ([facility]) LBBB (left bundle branch block) Myopathy VAZQUEZ (obstructive sleep apnea) Paroxysmal atrial flutter ([facility]) Benign hypertension with CKD (chronic kidney disease) stage III ([facility]) Memory deficits Hearing deficit, bilateral History of cataract extraction, unspecified laterality Vitamin D deficiency Hypercalcemia Chronic frontal sinusitis Constipation, unspecified constipation type Chronic bilateral low back pain without sciatica Iron deficiency anemia, unspecified iron deficiency anemia type Disorder of skin of trunk Anemia Body mass index (BMI) 31.0-31.9, adult 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[facility]) Benign hypertension with stage 3b chronic kidney disease ([facility]) Cobalamin deficiency Compression fracture of thoracic vertebra ([facility]) Depression Diabetic polyneuropathy ([facility]) Disorder of rotator cuff Diverticular disease Dysphagia Elevated troponin Gastroesophageal reflux disease without esophagitis Hyperlipidemia, unspecified hyperlipidemia type Vascular dementia ([facility]) Unknown and unspecified causes of morbidity Syncope, unspecified syncope type Wrist joint pain Requires lifelong warfarin therapy Hyperparathyroidism ([facility]) Presence of prosthetic heart valve Plantar fascial fibromatosis Peripheral neuropathy Parathyroid adenoma Polymyalgia rheumatica ([facility]) Osteoporosis Numbness Muscle cramps Closed stable burst fracture of sixth thoracic vertebra, initial encounter ([facility]) Chest pain Contusion of scalp Knee pain Localized, primary osteoarthritis Osteoarthritis of knee Traumatic closed displaced fracture of distal end of radius Shoulder joint pain Hyperlipidemia associated with type 2 diabetes mellitus ([facility]) Hematoma Anxiety Diastolic heart failure ([facility]) Internal hemorrhoids Leukoencephalopathy Major depression single episode, in partial remission ([facility]) Metacarpal bone fracture Mitral valve disorder Peripheral arterial occlusive disease ([facility]) Primary osteoarthritis involving multiple joints Vision loss COPD (chronic obstructive pulmonary disease) ([facility]) Diarrhea Drug-induced constipation H/O mechanical aortic valve replacement Age-related osteoporosis with current pathological fracture Care Management Physical deconditioning Chronic heart failure with preserved ejection fraction (HFpEF) ([facility]) Paroxysmal atrial fibrillation ([facility]) Hypertension associated with type 2 diabetes mellitus ([facility]) Encounter for prophylactic measures, unspecified Graves' disease Cirrhosis of liver without ascites, unspecified hepatic cirrhosis type ([facility]) Stage 3b chronic kidney disease ([facility]) OLIVE (acute kidney injury) ([place]) Heart failure with mildly reduced ejection fraction (HFmrEF) ([facility]) Hyperthyroidism Medications: Current Outpatient Medications Medication Sig Dispense Refill [...] tablet by mouth once daily 30 tablet 1 gabapentin (NEURONTIN) 300 MG capsule TAKE 1 [...] by mouth once daily 90 tablet 1 predniSONE (DELTASONE) 10 mg tablet Taper prednisone from 50 mg; 15 days 40 mg daily for 3 days 40 mg daily for 3 days 30 mg daily for 3 days 20 mg daily for 3 days 10 mg daily for 3 days Semaglutide (OZEMPIC, 0.25 OR 0.5 MG/DOSE, SC) [...] tablet by mouth once daily 30 tablet 1 warfarin (COUMADIN) 6 MG tablet Take 1 tablet (6 mg total) by mouth daily. 90 tablet 0 No current facility-administered medications for this visit. Chronic Care Management- Time Spent with Patient Time spent with patient (minutes): 6 Time spent performing chart review (minutes): 4 Total time (minutes): 10 CASEY JOHNSON RN I reviewed the patient's status and education provided by CASEY JOHNSON RN. I agree with the findings and recommendations made. Cosigned by Sanjeev Webster DO at 01/27/2024 1:51 PM CARE PROGRAM DIRECTOR PROGRAM DIRECTOR PROGRAM DIRECTOR documented in this encounter Plan of Treatment Upcoming Encounters Date Type Department Care Team (Late st Contact Info) Description 04/14/2024 2:00 PM CARE PROGRAM DIRECTOR Office Visit [facility] Multispecialty Care - [facility] [address], [address] [place] [address] Julio Pulido MD [address] [place] [address] documented as of this encounter Goals Goal Patient Goal Type Associated Problems Recent Progress Patient-Stated? Author Health - patient able to perform ADLs independently General On track(2023 9:49 AM CDT) Casey Corona RN Note: 12/17/23: Patient stated she is independent with ASL's. Establish Plan for Symptom Monitoring-CHF General On track(2023 11:36 AM CARE PROGRAM DIRECTOR) Casey Corona RN Note: Patient will recognize symptoms [...] Symptom Monitoring-COPD General On track(2023 11:36 AM CARE PROGRAM DIRECTOR) Casey Corona RN Note: Patient will recognize symptoms [...] Symptom Monitoring-DM General On track(2023 4:33 PM CARE PROGRAM DIRECTOR) Casey Corona RN Note: Patient will manage her [...] Symptom Monitoring-HTN General On track(2023 4:33 PM CARE PROGRAM DIRECTOR) Casey Corona RN Note: Patient will monitor B/P several times per week , record readings and report to physician or CC if B/P consistently >130/80 Take your medications as prescribed. Follow up with your provider as scheduled. Take your blood pressure at least several times a week if able. documented as of this encounter Visit Diagnoses Diagnosis Type 2 diabetes mellitus with stage 3b chronic kidney disease, without long-term current use of insulin ([facility])- Primary Chronic heart failure with preserved ejection fraction (HFpEF) (CMS/HCC HHS/HCC) Chronic obstructive pulmonary disease, unspecified COPD type ([facility] HHS/HCC) documented in this encounter Additional Health Concerns Assessment Noted Time PHQ-9 Depression Total Score: 13 023 3:56 PM CDT documented as of this encounter Care Teams Business Applications Specialist Relationship Specialty Start Date End Date Sanjeev Webster DO [address] [place] [address] [id number] PCP - General FAMILY PRACTICE 09/25/20 Casey Johnson, RN [address] [place] [address] Elevating Grader Operator (Ambulatory) REGISTERED NURSE 08/14/20 documented as of this encounter
--- OUTSIDE RECORDS SUMMARY | 2024-03-15 00:47 | XMS_ITS | Encounter Summary ---
Author Organization [facility] Address [facility] [place] [address] [place] [address] Care Team Providers Care Concrete Batch Plant Operator Name Role Phone Dianne Johnson RN Unavailable [phone] Sanjeev Webster DO Primary Care Provider + Reason for Referral * Consultation (Routine) - Authorized Specialty Diagnoses / Procedures Referred By Contac t Referred To Contact CARDIOLOGY / Cardiology Diagnoses Heart failure, unspecified ([facility]/HCC) Paroxysmal atrial fibrillation ([facility]) Procedures OFFICE/OUTPATIENT NEW LOW MDM 30-44 MINUTES OFFICE/OUTPT VISIT,NEW,LEVL IV OFFICE/OUTPT VISIT,NEW,LEVL V OFFICE/OUTPT VISIT,EST,LEVL III OFFICE/OUTPT VISIT,EST,LEVL IV OFFICE/OUTPT VISIT,EST,LEVL V Sanjeev Webster DO [address] [place] [address] Phone: tel: fax: Sania Gomez MD [facility] [address] [place] [address] Phone: tel: fax: Referral ID Status Reason Start Date Expiration Date Visits Requested Visits Authorized [id number] Authorized Specialty Services 02/18/2025 6 6 Scheduling Instructions APPOINTMENT DATE: 03/04/24 Requesting for: Dr. Sania Gomez / Diagnosis: I50.9, I48.0 CARE BILLER Reason for Visit * Reason Onset Date Comments Referral 02/03/2024 Encounter Details Date Type Department Care Team (Late st Contact Info) Description 02/03/2024 Telephone [facility] Medical Group Family & Internal Medicine [facility] [address] [place] [phone] Sanjeev Webster DO [address] [place] [address] Referral Social History Tobacco Use Types Packs/Day Years [...] week 08/26/2022 How often do you attend [facility] or yazdanism services? More than 4 times per year [...] Patient Health Questionnaire-2 Score 0 12/08/2023 [facility] Occupat ional Health - [...] Progress Notes * Yenifer Ingram MA - 02/03/2024 8:40 AM CST ----- Message from Teena Franks sent at 02/02/2024 12:25 PM MEDICARE BILLER ----- Regarding: [facility]ANCE REFERRAL REQUEST PLEASE Patient: Radha Huynh APPOINTMENT DATE: 03/04/24 Requesting for: Dr. Sania Gomez / Diagnosis: I50.9, I48.0 Thank you, Teena Richard CARE BILLER documented in this encounter Plan of Treatment Upcoming Encounters Date Type Department Care Team (Late st Contact Info) Description 04/14/2024 2:00 PM MEDICARE BILLER Office Visit [facility] Medical Group Multispecialty Care - [facility] [address] [facility], [address] [place] [id number] Julio Pulido MD [address] [place] [address] Scheduled Referrals Name Type Priority Associated Diagnoses Orde r Schedule Ambulatory referral to Cardiology, Adult ([facility]) Referral Routine Heart failure, unspecified ([facility]) Paroxysmal atrial fibrillation ([facility]) Ordered: 02/03/2024 documented as of this encounter Goals Goal Patient Goal Type Associated Problems Recent Progress Patient-Stated? Author Health - patient able to perform ADLs independently General On track(2023 9:49 AM CDT) No Dianne Johnson, RN Note: 12/17/23: Patient stated she is independent with ASL's. Establish Plan for Symptom Monitoring-CHF General On track(2023 11:36 AM MEDICARE BILLER) Dianne Corona, RN Note: Patient will recognize symptoms of [...] Symptom Monitoring-COPD General On track(2023 11:36 AM MEDICARE BILLER) Dianne Corona RN Note: Patient will recognize [...] Symptom Monitoring-DM General On track(2023 4:33 PM MEDICARE BILLER) Dianne Corona RN Note: Patient will manage [...] Symptom Monitoring-HTN General On track(2023 4:33 PM MEDICARE BILLER) Dianne Corona RN Note: Patient will monitor B/P several times per week , record readings and report to physician or CC if B/P consistently >130/80 Take your medications as prescribed. Follow up with your provider as scheduled. Take your blood pressure at least several times a week if able. documented as of this encounter Visit Diagnoses Diagnosis Heart failure, unspecified ([facility])- Primary Heart failure, unspecified Paroxysmal atrial fibrillation ([facility]) Atrial fibrillation documented in this encounter Additional Health Concerns Assessment Noted Time PHQ-9 Depression Total Score: 13 023 3:56 PM CDT documented as of this encounter Care Teams Concrete Batch Plant Operator Relationship Specialty Start Date End Date Sanjeev Webster DO [address] [place] [address] PCP - General FAMILY PRACTICE 09/25/20 [place] [address] [place] [address] Car Usher (Ambulatory) REGISTERED NURSE 08/14/20 documented as of this encounter
--- OUTSIDE RECORDS SUMMARY | 2024-03-15 00:47 | XMS_ITS | Encounter Summary ---
Author Organization [facility] Address [facility] [facility] [place], [place] [address] [place] [address] Care Team Providers Care Marionette Performer Name Role Phone Dianne Johnson RN Unavailable [phone] Suleman Montez DO Primary Care Provider + Reason for Referral * Consultation (Urgent) - Authorized Specialty Diagnoses / Procedures Referred By Contac t Referred To Contact CARDIOLOGY / Cardiology Diagnoses Coronary atherosclerosis of kenaitze coronary artery Procedures OFFICE/OUTPATIENT NEW LOW MDM 30-44 MINUTES OFFICE/OUTPT VISIT,NEW,LEVL IV OFFICE/OUTPT VISIT,NEW,LEVL V OFFICE/OUTPT VISIT,EST,LEVL III OFFICE/OUTPT VISIT,EST,LEVL IV OFFICE/OUTPT VISIT,EST,LEVL V Suleman Montez DO [address] [place] [address] Phone: tel: fax: Referral ID Status Reason Start Date Expiration Date Visits Requested Visits Authorized [id number] Authorized Specialty Services 09/05/2024 6 6 Scheduling Instructions Is this a new consult:Yes. 's name: Paxton Villela Specialty: cardiology Reason for referral (diagnosis): i25.10 Phone number: [phone] Fax number: [phone] Insurance: [employer] Appointment: 02/29/2024 [employer] Reason for Visit * Reason Onset Date Comments Results 03/03/2024 Encounter Details Date Type Department Care Team (Late st Contact Info) Description 03/03/2024 Telephone [facility] Medical Group Family & Internal Medicine [facility] [address] [place] [address] Juan AFlory crowetania Leon DO [address] [place], [place] [phone] Results Social History Tobacco Use Types Packs/Day Years [...] often do you attend chur ch or restoration services? More than 4 times per year 08/26/2022 Do you belong to any clubs o r organizations such as orthodoxy groups, unions, fraternal or athletic groups, or [...] Recorded Patient Health Questionnaire-2 Score 0 12/08/2023 [facility] Occupat ional Health - Occupational Stress [...] place to sleep or slept in a long-term (including now)? No 08/26/2022 Comments No Sex [...] in this encounter Progress Notes * Yenifer Wolf MA - 03/03/2024 8:47 AM CSTAddended by: YENIFER WOLF on: 03/03/2024 08:47 AM Modules accepted: Orders [employer] * Yenifer Wolf MA - 03/03/2024 8:14 AM CST The patient called for a referral to the following physician: Is this a new consult:Yes. 's name: Paxton Villela Specialty: cardiology Reason for referral (diagnosis): i25.10 Phone number: [phone] Fax number: [phone] Insurance: [facility] Appointment: 02/29/2024 Last office visit at this office: Last visit with SULEMAN MONTEZ in FAMILY PRACTICE was on: 02/29/2024 in [facility] Future appointment scheduled: Future Appointments Date Time Provider Department Center 03/10/2024 1:40 PM [facility] NURSE MGFMMRVL [facility] 04/14/2024 2:00 PM Julio Pulido MD [facility] [employer] documented in this encounter Plan of Treatment Upcoming Encounters Date Type Department Care Team (Late st Contact Info) Description 04/14/2024 2:00 PM [employer]PER[employer] Office Visit [facility] Medical Group Multispecialty Care - [facility] [address] [facility], [address] [place] [address] Julio Pulido MD [address] [place] [address] Scheduled Referrals Name Type Priority Associated Diagnoses Orde r Schedule Ambulatory referral to Cardiology, Adult (OTHER) Referral Routine Coronary atherosclerosis of kenaitze coronary artery Ordered: 03/03/2024 documented as of this encounter Goals Goal Patient Goal Type Associated Problems Recent Progress Patient-Stated? Author Health - patient able to perform ADLs independently General On track(2023 9:49 AM CDT) No Dianne Johnson, RN Note: 12/17/23: Patient stated she is independent with ASL's. Establish Plan for Symptom Monitoring-CHF General On track(2023 11:36 AM [employer]) Dianne Corona, RN Note: Patient will recognize [...] Symptom Monitoring-COPD General On track(2023 11:36 AM [employer]) Dianne Corona RN Note: Patient will recognize [...] Symptom Monitoring-DM General On track(2023 4:33 PM [employer]) Dianne Corona RN Note: Patient will manage [...] Symptom Monitoring-HTN General On track(2023 4:33 PM [employer]) Dianne Corona RN Note: Patient will monitor B/P several times per week , record readings and report to physician or CC if B/P consistently >130/80 Take your medications as prescribed. Follow up with your provider as scheduled. Take your blood pressure at least several times a week if able. Establish Plan for Symptom Monitoring-paroxy smal atrial fib Lifestyle On track(2023 11:36 AM [employer]) Dianne Corona, RN Note: Atrial Fib: Patient will recognize symptoms of atrial fibrillation and report to physician should they occur. Establish regular follow ups with Oriental Rug Stretcher, take medications exactly as directed without skipping doses. documented as of this encounter Visit Diagnoses Diagnosis Coronary atherosclerosis of kenaitze coronary artery- Primary documented in this encounter Additional Health Concerns Assessment Noted Time PHQ-9 Depression Total Score: 13 023 3:56 PM CDT documented as of this encounter Care Teams Marionette Performer Relationship Specialty Start Date End Date Suleman Montez DO [address] [place] [address] PCP - General FAMILY PRACTICE 09/25/20 Dianne Johnson, RN [address] [place] [address] Kayaking Instructor (Ambulatory) REGISTERED NURSE 08/14/20 documented as of this encounter
--- OUTSIDE RECORDS SUMMARY | 2024-03-15 00:47 | XMS_ITS | Encounter Summary ---
Author Organization [facility] Address [facility] [place] [address] [place] [address] Care Team Providers Care Parquet Floor Layer'S Helper Name Role Phone Dianne Johnson RN Unavailable [phone] Sanjeev Webster DO Primary Care Provider + Reason for Visit * Reason Onset Date Comments Lab Order 02/29/2024 Encounter Details Date Type Department Care Team (Late st Contact Info) Description 02/29/2024 Telephone [facility] Medical Group Family & Internal Medicine [id number] [place] [address] Sanjeev Webster DO [address] [place] [address] Lab Order Social History Tobacco Use Types Packs/Day Years [...] often do you attend chur ch or hoahaoism services? More than 4 times per year [...] Recorded Patient Health Questionnaire-2 Score 0 12/08/2023 [facility] of Occupat ional Health - Occupational Stress [...] place to sleep or slept in a penitentiary (including now)? No 08/26/2022 Comments No Sex [...] Progress Notes * Yenifer Ingram MA - 02/29/2024 4:00 PM CST Spoke with patient and informed her she was handed the orders. The patient recalled this and statesshe forgot that. She will go back to the hospital to get them done at a later time. NG MACHINE OPERATOR * Lola Eli - 02/29/2024 3:37 PM CST Pt called in asking for lab orders to be sent to [facility]. States went there and they had not received them yet. Please advise. NG MACHINE OPERATOR documented in this encounter Plan of Treatment Upcoming Encounters Date Type Department Care Team (Late st Contact Info) Description 04/14/2024 2:00 PM GLUING MACHINE OPERATOR Office Visit [facility] Medical Group Multispecialty Care - [facility] 3 [facility], [address] [place] [id number] Julio Pulido MD 3 [place] [address] documented as of this encounter Goals Goal Patient Goal Type Associated Problems Recent Progress Patient-Stated? Author Health - patient able to perform ADLs independently General On track(2023 9:49 AM CDT) No Dianne Johnson RN Note: 12/17/23: Patient stated she is independent with ASL's. Establish Plan for Symptom Monitoring-CHF General On track(2023 11:36 AM GLUING MACHINE OPERATOR) Dianne Corona RN Note: Patient will recognize [...] Symptom Monitoring-COPD General On track(2023 11:36 AM GLUING MACHINE OPERATOR) Dianne Corona RN Note: Patient will recognize [...] Symptom Monitoring-DM General On track(2023 4:33 PM GLUING MACHINE OPERATOR) Dianne Corona RN Note: Patient will manage [...] Symptom Monitoring-HTN General On track(2023 4:33 PM GLUING MACHINE OPERATOR) No Dianne Johnson RN Note: Patient will monitor B/P several times per week , record readings and report to physician or CC if B/P consistently >130/80 Take your medications as prescribed. Follow up with your provider as scheduled. Take your blood pressure at least several times a week if able. Establish Plan for Symptom Monitoring-paroxy smal atrial fib Lifestyle On track(2023 11:36 AM GLUING MACHINE OPERATOR) Dianne Corona, RN Note: Atrial Fib: Patient will recognize symptoms of atrial fibrillation and report to physician should they occur. Establish regular follow ups with Agricultural Equipment Salesperson, take medications exactly as directed without skipping doses. documented as of this encounter Visit Diagnoses Not on filedocumented in this encounter Additional Health Concerns Assessment Noted Time PHQ-9 Depression Total Score: 13 023 3:56 PM CDT documented as of this encounter Care Teams Parquet Floor Layer'S Helper Relationship Specialty Start Date End Date Sanjeev Webster DO [address] [place] [id number] PCP - General FAMILY PRACTICE 09/25/20 Dianne Johnson, RN [address] [place] [address] Clinical Field Specialist (Ambulatory) REGISTERED NURSE 08/14/20 documented as of this encounter
--- OUTSIDE RECORDS SUMMARY | 2024-03-15 00:47 | XMS_ITS | Encounter Summary ---
Author Organization [facility] Address [facility]6 [facility] [place] [address] [place] [address] Care Team Providers Care Clinical Nurse Reviewer Name Role Phone Dianne Johnson RN Unavailable [phone] Sanjeev Montez DO Primary Care Provider + Reason for Visit * Reason Onset Date Comments Care Management 02/29/2024 Encounter Details Date Type Department Care Team (Late st Contact Info) Description 02/29/2024 Patient Outreach [facility] Medical Group Family & Internal Medicine [address] [address] Dianne Johnson, RN [address] [place] [address] Care Management Social History Tobacco [...] How often do you attend chur or spiritism services? More than 4 times per year 08/26/2022 Do you belong to any clubs o r organizations such as cheondoism groups, unions, fraternal or athletic groups, or [...] Recorded Patient Health Questionnaire-2 Score 0 12/08/2023 [facility] of Occupat ional Health - Occupational [...] place to sleep or slept in a alf (including now)? No 08/26/2022 Comments No Sex [...] Progress Notes * Dianne Johnson RN - 02/29/2024 2:38 PM CST Images from the original note were not included. Received message from PCP regarding osteoporosis and if patient is taking alendronate as ordered by or doing prolia. Left message for Izzy to return CC phone call to find out if patient isdoing prolia or alendronate for osteoporosis. According to PDMP review it states the following: Contacted Izzy. She stated patient is taking alendronate once a week with a full glass of plain water before taking anything else. Stating she has to sit up for at least 30 minutes after taking it. NG ADMINISTRATOR * Sanjeev Montez DO - 02/29/2024 2:38 PM CSTAddended by: SANJEEV MONTEZ on: 03/01/2024 07:39 AM Modules accepted: Orders NG ADMINISTRATOR documented in this encounter Plan of Treatment Upcoming Encounters Date Type Department Care Team (Late st Contact Info) Description 04/14/2024 2:00 PM ZONING ADMINISTRATOR Office Visit [facility] Medical Group Multispecialty Care - [facility] 3 [facility], [address] [place] [phone] Julio Pulido MD [address] [place] [address] documented as of this encounter Goals Goal Patient Goal Type Associated Problems Recent Progress Patient-Stated? Author Health - patient able to perform ADLs independently General On track(2023 9:49 AM CDT) Dianne Corona RN Note: 12/17/23: Patient stated she is independent with ASL's. Establish Plan for Symptom Monitoring-CHF General On track(2023 11:36 AM ZONING ADMINISTRATOR) Dianne Corona RN Note: Patient will recognize [...] Symptom Monitoring-COPD General On track(2023 11:36 AM ZONING ADMINISTRATOR) Dianne Corona RN Note: Patient will recognize [...] Symptom Monitoring-DM General On track(2023 4:33 PM ZONING ADMINISTRATOR) Dianne Corona RN Note: Patient will manage [...] Symptom Monitoring-HTN General On track(2023 4:33 PM ZONING ADMINISTRATOR) No Dianne Johnson RN Note: Patient will monitor B/P several times per week , record readings and report to physician or CC if B/P consistently >130/80 Take your medications as prescribed. Follow up with your provider as scheduled. Take your blood pressure at least several times a week if able. Establish Plan for Symptom Monitoring-paroxy smal atrial fib Lifestyle On track(2023 11:36 AM ZONING ADMINISTRATOR) Dianne Corona RN Note: Atrial Fib: Patient will recognize symptoms of atrial fibrillation and report to physician should they occur. Establish regular follow ups with Lumber Sorter Machine, take medications exactly as directed without skipping doses. documented as of this encounter Visit Diagnoses Not on filedocumented in this encounter Additional Health Concerns Assessment Noted Time PHQ-9 Depression Total Score: 13 023 3:56 PM CDT documented as of this encounter Care Teams Clinical Nurse Reviewer Relationship Specialty Start Date End Date Sanjeev Montez DO [address] [place] [address] PCP - General FAMILY PRACTICE 09/25/20 Dianne Johnson RN [address] [place] [address] Delivery Recruiter (Ambulatory) REGISTERED NURSE 08/14/20 documented as of this encounter
--- OUTSIDE RECORDS SUMMARY | 2024-03-15 00:47 | XMS_ITS | Encounter Summary ---
Author Organization [facility] Address [facility]6 [place] [address] [place] [address] Care Team Providers Care Vice President Network Development Name Role Phone Casey Johnson RN Unavailable [phone] Sanjeev Webster DO Primary Care Provider + Reason for Visit * Reason Onset Date Comments Care Management 02/25/2024 Appointment Reminder 02/25/2024 Encounter Details Date Type Department Care Team (Late st Contact Info) Description 02/25/2024 Patient Outreach [facility] Medical Group Family & Internal Medicine [address] [address] Casey Johnson, RN [address] [place] [address] Care Management; Appointment Reminder Social History Tobacco Use Types Packs/Day Years [...] How often do you attend chur or yazidism services? More than 4 times per year 08/26/2022 Do you belong to any clubs o r organizations such as mandaen groups, unions, fraternal or athletic groups, or [...] Recorded Patient Health Questionnaire-2 Score 0 12/08/2023 [facility] of Occupat ional Health - Occupational Stress [...] place to sleep or slept in a senior care (including now)? No 08/26/2022 Comments No Sex [...] Progress Notes * Casey Johnson RN - 02/25/2024 10:27 AM CST Chronic Care Management: Patient concerns or urgent matters that need addressed: Patient stated walker did not come with wheels and she wanted wheels on her walker. She is unsure which DME she received the walker from two weeks ago. CC reviewed notes in chart and order for walkersent to [facility]. Contacted Mary with [employer] [facility]. She stated the walker order states no wheels. Stated if patientwants a Rolator it will cost over $200. She can check with [employer] or [employer] to see if it's cheaper. Called patient to inform of the above. [facility] Informed patient she can get walker ski glides as well for the back of the walker. Discussed going to [place] to get free good used DME. CC will reach out to Bebe (JEREMY) to find out where she needs to go. Patient stated she's been there before. Stated it's [email or web address] and [facility] in [place]. Patient Status: Contacted patient to remind her of appointment tomorrow with on 02/26/24 at 10:30 am. Address is [facility] [address] [facility] in [place]. Phone number [phone]. Encouraged patient to keep appointment tomorrow as this is the fourth time office has scheduled her appointment. Patient verbalizes understanding and stated office contacted her this morning to confirm appointment. Patient c/o top of right foot pressure, feels weird and looks puffy. When she walks she can feel the pressure on the right foot going up to the top of her foot. Stated when she puts her sock on thesock fits a little tighter. She started colchicine yesterday and plans on f/u with PCP on 02/29/24.Denies needing a sooner appointment at this time. Encouraged patient to elevate foot above the level of her heart this may help with swelling and pressure. Educated patient on gout symptoms and causes. She did not have any further questions about gout. Stated CC explained it to her in detail and she has a better understanding. Patient continues to take warfarin as directed and getting routine PT/INR's. Stated Izzy came over yesterday and adjusted her pill land use planner since Warfarin was increased to 6 mg on two days and patientstated the rest of the days 5 mg. Instructed patient to repeat PT/INR in 2 weeks. Patient verbalizes understanding. Denies any issues at this time with COPD or CHF exacerbation s/s. Denies any issueswith heart palpitations at this time. Stated she wishes she didn't stop colchicine since her foot is flared up again. Opportunity for patient to ask questions. No further needs noted at this time. Instructed patient to keep appointment tomorrow with tomorrow or if she can't make it to call his office [place]. Patient verbalizes understanding. Plan of Care: inside sales coordinator will continue to follow up by [...] without notifying provider Establish Plan for Symptom Monitoring-paroxysmal atrial fib On track Atrial Fib: Patient will recognize symptoms of atrial fibrillation and report to physician should they occur. Establish regular follow ups with Drain Cleaner, take medications exactly as directed without skipping doses. Upcoming Visit Appointments: Future Appointments Date Time Provider Department Center 02/29/2024 1:40 PM Sanjeev Webster DO [id number] 04/14/2024 2:00 PM MD NALINI Gutierrez [facility] Quality care gaps: Health Maintenance Topic Date Due Annual Medicare Wellness Visit Never done RSV Immunization or 60+ Years (1 - 1-dose 75+ series) Never done Zoster Vaccines (3 of 3) 01/06/2023 COVID-19 Vaccine ( - 2023- season) 2112 (Originally 11/08/2023) Diabetes: Retinopathy Eye [...] test Chronic anticoagulation Coronary artery disease involving [place] coronary artery of [place] heart without angina pectoris H/O mechanical aortic valve replacement Hypertensive heart disease with congestive heart failure ([facility]) LBBB (left bundle branch block) Myopathy VAZQUEZ (obstructive sleep apnea) Paroxysmal atrial flutter ([facility]) Benign hypertension with CKD (chronic kidney disease) stage III ([facility]) Memory deficits Hearing deficit, bilateral History of cataract extraction, unspecified laterality Vitamin D deficiency Hypercalcemia Chronic frontal sinusitis Constipation, unspecified constipation type Chronic bilateral low back pain without sciatica Iron deficiency anemia, unspecified iron deficiency anemia type Disorder of skin of trunk Anemia Body mass index (BMI) 31.0-31.9, adult 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[facility]) Benign hypertension with stage 3b chronic kidney disease ([facility]) Cobalamin deficiency Compression fracture of thoracic vertebra ([facility]) Depression Diabetic polyneuropathy ([facility]) Disorder of rotator cuff Diverticular disease Dysphagia Elevated troponin Gastroesophageal reflux disease without esophagitis Hyperlipidemia, unspecified hyperlipidemia type Vascular dementia ([facility]) Unknown and unspecified causes of morbidity Syncope, unspecified syncope type Wrist joint pain Requires lifelong warfarin therapy Hyperparathyroidism ([facility]) Presence of prosthetic heart valve Plantar fascial fibromatosis Peripheral neuropathy Parathyroid adenoma Polymyalgia rheumatica ([facility]) Osteoporosis Numbness Muscle cramps Closed stable burst fracture of sixth thoracic vertebra, initial encounter ([facility]) Chest pain Contusion of scalp Knee pain Localized, primary osteoarthritis Osteoarthritis of knee Traumatic closed displaced fracture of distal end of radius Shoulder joint pain Hyperlipidemia associated with type 2 diabetes mellitus ([facility]) Hematoma Anxiety Diastolic heart failure ([facility]) Internal hemorrhoids Leukoencephalopathy Major depression single episode, in partial remission ([facility]) Metacarpal bone fracture Mitral valve disorder Peripheral arterial occlusive disease ([facility]) Primary osteoarthritis involving multiple joints Vision loss COPD (chronic obstructive pulmonary disease) ([facility]) Diarrhea Drug-induced constipation H/O mechanical aortic valve replacement Age-related osteoporosis with current pathological fracture Care Management Physical deconditioning Chronic heart failure with preserved ejection fraction (HFpEF) ([facility]) Paroxysmal atrial fibrillation ([facility]) Hypertension associated with type 2 diabetes mellitus ([facility]) Encounter for prophylactic measures, unspecified Graves' disease Cirrhosis of liver without ascites, unspecified hepatic cirrhosis type ([facility]) Stage 3b chronic kidney disease ([facility]) OLIVE (acute kidney injury) ([facility]) Heart failure with mildly reduced ejection fraction (HFmrEF) ([facility]) Hyperthyroidism Medications: Current Outpatient Medications Medication [...] with Patient Time spent with patient (minutes): 39 (Comment: Time spent with patient and provider plus.) Time spent performing chart review (minutes): 4 Total time (minutes): 43 CASEY JOHNSON RN I reviewed the patient's status and education provided by CASEY JOHNSON RN. I agree with the findings and recommendations made. Cosigned by Sanjeev Webster DO at 02/25/2024 9:35 PM SSDS MK 2 ADVANCED OPERATOR MK 2 ADVANCED OPERATOR MK 2 ADVANCED OPERATOR documented in this encounter Plan of Treatment Upcoming Encounters Date Type Department Care Team (Late st Contact Info) Description 04/14/2024 2:00 PM SSDS MK 2 ADVANCED OPERATOR Office Visit [facility] Medical Group Multispecialty Care - [facility] 3 [facility], [address] [place] [phone] Julio Pulido MD [address] [place] [address] documented as of this encounter Goals Goal Patient Goal Type Associated Problems Recent Progress Patient-Stated? Author Health - patient able to perform ADLs independently General On track(2023 9:49 AM CDT) Casey Corona RN Note: 12/17/23: Patient stated she is independent with ASL's. Establish Plan for Symptom Monitoring-CHF General On track(2023 11:36 AM SSDS MK 2 ADVANCED OPERATOR) Casey Corona RN Note: Patient will recognize [...] Symptom Monitoring-COPD General On track(2023 11:36 AM SSDS MK 2 ADVANCED OPERATOR) Casey Corona RN Note: Patient will recognize [...] Symptom Monitoring-DM General On track(2023 4:33 PM SSDS MK 2 ADVANCED OPERATOR) Casey Corona RN Note: Patient will manage [...] Symptom Monitoring-HTN General On track(2023 4:33 PM SSDS MK 2 ADVANCED OPERATOR) Casey Corona RN Note: Patient will monitor B/P several times per week , record readings and report to physician or CC if B/P consistently >130/80 Take your medications as prescribed. Follow up with your provider as scheduled. Take your blood pressure at least several times a week if able. Establish Plan for Symptom Monitoring-paroxy smal atrial fib Lifestyle On track(2023 11:36 AM SSDS MK 2 ADVANCED OPERATOR) Casey Corona RN Note: Atrial Fib: Patient will recognize symptoms of atrial fibrillation and report to physician should they occur. Establish regular follow ups with Drain Cleaner, take medications exactly as directed without skipping doses. documented as of this encounter Visit Diagnoses Diagnosis Chronic obstructive pulmonary disease, unspecified COPD type ([facility])- Primary Chronic heart failure with preserved ejection fraction (HFpEF) ([facility]) Paroxysmal atrial flutter ([facility]) Atrial flutter documented in this encounter Additional Health Concerns Assessment Noted Time PHQ-9 Depression Total Score: 13 023 3:56 PM CDT documented as of this encounter Care Teams Vice President Network Development Relationship Specialty Start Date End Date Sanjeev Webster DO [address] [place] [id number] PCP - General FAMILY PRACTICE 09/25/20 Casey Johnson, RN [address] [place] [address] Repairer Shoe Sticks (Ambulatory) REGISTERED NURSE 08/14/20 documented as of this encounter
--- OUTSIDE RECORDS SUMMARY | 2024-03-15 00:47 | XMS_ITS | Clinical Summary ---
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 PROTHROMBIN TIME, FINGERSTICK Routine 02/24/2024 [facility] (current) use of anticoagulants PROTHROMBIN TIME, FINGERSTICK Routine 02/10/2024 [facility] (current) use of anticoagulants PROTHROMBIN TIME, VENOUS Routine 02/02/2024 1:52 PM MANGLE ROLL OPERATOR cement car 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 (current) use of anticoagulants COLLECTION VENOUS BLOOD VENIPUNCTURE Routine 02/02/2024 1:50 PM MANGLE ROLL OPERATOR cement car dumper (current) use of anticoagulants COLLECT.CAPILLARY (FNGR,HEEL,EAR) Routine 02/02/2024 1:50 PM MANGLE ROLL OPERATOR cement car dumper (current) use of anticoagulants PROTHROMBIN TIME, FINGERSTICK Routine 02/02/2024 [facility] (current) use of anticoagulants COLLECT.CAPILLARY (FNGR,HEEL,EAR) Routine 01/15/2024 10:34 AM MANGLE ROLL OPERATOR cement car dumper (current) use of anticoagulants PROTHROMBIN TIME, FINGERSTICK Routine 01/15/2024 [facility] (current) use of anticoagulants CORONAVIRUS (COVID 19) PCR Routine 01/08/2024 1:05 PM CDT Chills (without fever) CORONAVIRUS (COVID-19) INFLUENZA A & B ANTIGEN IA PANEL Routine 01/08/2024 Chills (without fever) COLLECT.CAPILLARY (FNGR,HEEL,EAR) Routine 01/04/2024 11:51 AM CDT [facility] (current) use of anticoagulants PROTHROMBIN TIME, FINGERSTICK Routine 01/04/2024 [facility] (current) use of anticoagulants COLLECT.CAPILLARY (FNGR,HEEL,EAR) Routine 12/28/2023 2:31 PM CDT [facility] (current) use of anticoagulants PROTHROMBIN TIME, FINGERSTICK Routine 12/28/2023 cement car 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 (current) use of anticoagulants COLLECT.CAPILLARY (FNGR,HEEL,EAR) Routine 12/21/2023 11:15 AM CDT cement car dumper (current) use of anticoagulants H/O mechanical aortic valve replacement PROTHROMBIN TIME, FINGERSTICK Routine 12/21/2023 [facility] (current) use of anticoagulants H/O mechanical aortic valve replacement IMAGE GENERIC 12/15/2023 BONE DENSITY GENERIC (SCAN ORDER) 11/24/2023 LIPID PANEL Routine 08/14/2023 12:00 PM CDT Type 2 diabetes mellitus with stage 3b chronic kidney disease, without long-term current use of insulin ([facility] HHS/HCC) Heart failure with mid-range ejection fraction (HFmEF) ([facility] HHS/HCC) Chronic anticoagulation Paroxysmal atrial fibrillation ([facility] HHS/HCC) Hyperparathyroidism ([facility] HHS/HCC) Hyperthyroidism HEP C SCANNED ORDERS Routine 02/03/2023 DIABETIC RETINOPATHY EXAM (NEGATIVE)(SCAN ORDER) Routine 04/21/2022 from Last 3 Months or Most Recently Relevant to Health Maintenance Results * HEMOGLOBIN, GLYCOSYLATED (02/29/2024) HGB A1C 5.5 % [facility] 02/29/2024 us Sanjeev Webster DO LABORATORY Final Re sult Performing Organization Address [facility] Co de Phone Number [facility] [address] [place] [address], * PROTIME/INR, FINGERSTICK (02/24/2024) Only the most recent of7 resultswithin the time period is included. INR WHOLE BLOOD 2.00 [facility] 02/24/2024 Sanjeev Webster DO LABORATORY Final Re sult Performing Organization Address [facility] de Phone Number [facility] [address] [place] [address], * (ABNORMAL) PROTIME/INR, VENOUS (02/02/2024 1:52 PM MANGLE ROLL OPERATOR) PROTIME 15.6(H) 9.3 - 11.6 SEC 02/02/2024 8:12 PM MANGLE ROLL OPERATOR [facility] INR 1.5(H) 0.9 - 1.1 02/02/2024 8:12 PM MANGLE ROLL OPERATOR [facility] Comment: TREATMENT OR PROPHYLAXIS AGAINST: ?? THERAPEUTIC RANGE (INR): ?VENOUS THROMBOSIS ? 2.0-3.0 ?PULMONARY EMBOLUS ? 2.0-3.0 ?? MECHANICAL PROSTHETIC VALVES ? 2.5-3.5 02/02/2024 1:52 PM MANGLE ROLL OPERATOR Sanjeev Webster DO LABORATORY Final Evy silvanovesna Performing Organization Address [facility] de Phone Number [facility] [address] [place] [address], * CORONAVIRUS (COVID 19) PCR (01/08/2024 1:05 PM CDT) SPEC DESCRIPTION NASAL 01/08/20 24 1:05 PM CDT [facility] CORONAVIRUS SARS COV 2 PCR (RESP) NEGATIVE NEGATIVE 01/09/2024 10:58 PM CDT [facility] Comment: THE SARS-CoV-2 TEST HAS BEEN AUTHORIZED BY THE FDA UNDER AN EUA FOR USE BY AUTHORIZED LABORATORIES. PERFORMED BY NUCLEIC ACID AMPLIFICATION PCR NASAL STRUCTURE / Unknown 01/08/2024 1:05 PM CDT Sanjeev Webster DO MICROBIOLOGY - GENERAL O RDERABLES Final Result [facility] [address] [place] [address], [place] [phone] * CORONAVIRUS (COVID-19) INFLUENZA A & B ANTIGEN IA PANEL (01/08/2024) CORONAVIRUS ANTIGEN IA NEGATIVE NEGATIVE [facility] INFLUENZA A NEGATIVE NEGATIVE [facility] INFLUENZA B NEGATIVE NEGATIVE [facility] Internal Control: VALID VALID [facility] NASAL STRUCTURE / Unknown 01/08/2024 Sanjeev Webster DO MICROBIOLOGY - GENERAL O RDERABLES Final Result Performing Organization Address City/[facility]/ZIP Co de Phone Number [facility] [address] [place] [address], [place] * IMAGE GENERIC (12/15/2023) Anatomical Region Laterality Modality Other 12/15/2023 [employer] Scanned SCANNING Final Resu lt * BONE DENSITY GENERIC (SCAN ORDER) (11/24/2023) Anatomical Region Laterality Modality Other 11/24/2023 [facility] Scanned SCANNING Final Resu lt * (ABNORMAL) LIPID PANEL (08/14/2023 12:00 PM CDT) CHOLESTEROL 201(H) <200 MG/DL 08/14/2023 7:44 PM CDT [facility] TRIGLYCERIDES 97 <150 MG/DL 08/14/2023 7:44 PM CDT [facility] HDL 66 >40 MG/DL 08/14/2023 7:44 PM CDT [facility] LDL-C 116(H) <100 MG/DL 08/14/2023 7:44 PM CDT [facility] VLDL CALCULATION 19 5 - 28 MG/DL 08/14/2023 7:44 PM CDT [facility] CHOL/HDL RATIO 3.0 0.0 - 4.0 08/14/2023 7:44 PM CDT [facility] LDL/HDL 1.8 0.41 - 2.13 08/14/2023 7:44 PM CDT [facility] NON HDL CHOLESTEROL 135 <140 MG/DL 08/14/2023 7:44 PM CDT [facility] 08/14/2023 12:0 0 PM CDT Sanjeev Webster DO LABORATORY Final Re sult Performing Organization Address City/[facility]/ZIP Co de Phone Number [facility] [address] [place] [address], * HEP C SCANNED ORDERS (02/03/2023) [facility] Scanned SCANNING Final Resu lt [facility] * DIABETIC RETINOPATHY EXAM (NEGATIVE)(SCAN) (04/21/2022) [employer] Scanned SCANNING Final Resu lt Performing Organization Address City/[facility]/ZIP Co de Phone Number [facility] from Last 3 Months or Most Recently Relevant to Health Maintenance Insurance [employer] Advance Directives * Full Code (Latest Code Status on File) Date Activated Date Inactivated Comments 08/26/2022 8:13 PM 08/29/2022 2:36 PM * Full Code Date Activated Date Inactivated Comments 11/05/2021 7:38 PM 11/12/2021 3:54 PM * Full Code Date Activated Date Inactivated Comments 10/22/2021 8:42 PM 11/05/2021 7:14 PM * Full Code Date Activated Date Inactivated Comments 10/16/2021 4:17 PM 10/21/2021 4:52 PM Care Teams Policy Issue Clerk Relationship Specialty Start Date End Date Sanjeev Webster DO [address] [place] [id number] PCP - General FAMILY PRACTICE 09/25/20 Dianne Johnson, RN [address] [place] [address] Manager Books (Ambulatory) REGISTERED NURSE 08/14/20
--- OUTSIDE RECORDS SUMMARY | 2024-03-15 00:47 | XMS_ITS | Encounter Summary ---
Author Organization [facility] Address [facility] [place] [address] [place] [address] Care Team Providers Care Chenille Machine Operator Name Role Phone Dianne Johnson RN Unavailable [phone] Sanjeev Webster DO Primary Care Provider + Encounter Details Date Type Department Care Team (Latest Contact Info) Description 02/01/2024 Scan HEALTH INFO SRVCS Scanned, Doc Med Group Social History Tobacco Use Types Packs/Day Years [...] often do you attend chur ch or christian services? More than 4 times per year 08/26/2022 Do you belong to any clubs o r organizations such as sabianism groups, unions, fraternal or athletic groups, or [...] Recorded Patient Health Questionnaire-2 Score 0 12/08/2023 [facility] - Occupational [...] place to sleep or slept in a nursing home (including now)? No 08/26/2022 Comments No Sex [...] Gunderson RN Active documented in this encounter Plan of Treatment Upcoming Encounters Date Type Department Care Team (Late st Contact Info) Description 04/14/2024 2:00 PM FICTION AND NONFICTION AUTHOR Office Visit [facility] Medical [facility] Multispecialty Care - [facility] [address] [facility], [address] [place] [address] Julio Pulido MD [address] [place] [address] documented as of this encounter Goals Goal Patient Goal Type Associated Problems Recent Progress Patient-Stated? Author Health - patient able to perform ADLs independently General On track(2023 9:49 AM CDT) Dianne Corona RN Note: 12/17/23: Patient stated she is independent with ASL's. Establish Plan for Symptom Monitoring-CHF General On track(2023 11:36 AM FICTION AND NONFICTION AUTHOR) Dianne Corona RN Note: Patient will recognize [...] Symptom Monitoring-COPD General On track(2023 11:36 AM FICTION AND NONFICTION AUTHOR) Dianne Corona RN Note: Patient will recognize [...] Symptom Monitoring-DM General On track(2023 4:33 PM FICTION AND NONFICTION AUTHOR) Dianne Corona RN Note: Patient will manage [...] Symptom Monitoring-HTN General On track(2023 4:33 PM FICTION AND NONFICTION AUTHOR) Dianne Corona, RN Note: Patient will monitor B/P several times per week , record readings and report to physician or CC if B/P consistently >130/80 Take your medications as prescribed. Follow up with your provider as scheduled. Take your blood pressure at least several times a week if able. Establish Plan for Symptom Monitoring-paroxy smal atrial fib Lifestyle On track(2023 11:36 AM FICTION AND NONFICTION AUTHOR) Dianne Corona, RN Note: Atrial Fib: Patient will recognize symptoms of atrial fibrillation and report to physician should they occur. Establish regular follow ups with Revenue Enforcement Collection Agent, take medications exactly as directed without skipping doses. documented as of this encounter Visit Diagnoses Not on filedocumented in this encounter Additional Health Concerns Assessment Noted Time PHQ-9 Depression Total Score: 13 023 3:56 PM CDT documented as of this encounter Care Teams Chenille Machine Operator Relationship Specialty Start Date End Date Sanjeev Webster DO [address] [place] [id number] PCP - General FAMILY PRACTICE 09/25/20 Dianne Johnson RN [address] [place] [address] Torpedoman'S Mate (Ambulatory) REGISTERED NURSE 08/14/20 documented as of this encounter
--- OUTSIDE RECORDS SUMMARY | 2024-03-15 00:47 | XMS_ITS | Encounter Summary ---
Author Organization [facility] Address [facility]ly [facility] [place] [address] [place] [address] Care Team Providers Care Director Of Medical Education Name Role Phone Dianne Johnson RN Unavailable [phone] Sanjeev Webster DO Primary Care Provider + Reason for Visit * Reason Comments Anticoagulation Encounter Details Date Type Department Care Team (Late st Contact Info) Description 02/02/2024 1:40 PM WAX BLEACHER Allied Health/Nurse Visit [facility] Medical Group Family & Internal Medicine [address] [address] Sanjeev Webster DO [facility] [place] [address] Anticoagulation Social History Tobacco Use Types Packs/Day Years [...] often do you attend chur ch or lutheran services? More than 4 times per year 08/26/2022 Do you belong to any clubs o r organizations such as religious groups, unions, fraternal or athletic groups, or [...] Recorded Patient Health Questionnaire-2 Score 0 12/08/2023 [facility] Occupat ional Health - Occupational [...] place to sleep or slept in a jail (including now)? No 08/26/2022 Comments No Sex [...] st Contact Info) Description 04/14/2024 2:00 PM WAX BLEACHER Office Visit [facility] Medical Group Multispecialty Care - [facility] [address] [facility], [address] [place] [id number] Julio Pulido MD [address] [place] [address] documented as of this encounter Goals Goal Patient Goal Type Associated Problems Recent Progress Patient-Stated? Author Health - patient able to perform ADLs independently General On track(2023 9:49 AM CDT) Dianne Corona RN Note: 12/17/23: Patient stated she is independent with ASL's. Establish Plan for Symptom Monitoring-CHF General On track(2023 11:36 AM WAX BLEACHER) Dianne Corona RN Note: Patient will recognize [...] Symptom Monitoring-COPD General On track(2023 11:36 AM WAX BLEACHER) Dianne Corona RN Note: Patient will recognize [...] Symptom Monitoring-DM General On track(2023 4:33 PM WAX BLEACHER) Dianne Corona RN Note: Patient will manage [...] Symptom Monitoring-HTN General On track(2023 4:33 PM WAX BLEACHER) Dianne Corona RN Note: Patient will monitor [...] Priority Date/Time Associated Diagnosis Comments PROTHROMBIN TIME, VENOUS Routine 02/02/2024 1:52 PM WAX BLEACHER tank terminal gauger (current) use of anticoagulants COLLECT.CAPILLARY (FNGR,HEEL,EAR) Routine 02/02/2024 1:50 PM WAX BLEACHER detention (current) use of anticoagulants COLLECTION VENOUS BLOOD VENIPUNCTURE Routine 02/02/2024 1:50 PM WAX BLEACHER tank terminal gauger (current) use of anticoagulants PROTHROMBIN TIME, FINGERSTICK Routine 02/02/2024 tank terminal gauger (current) use of anticoagulants documented in this encounter Results * (ABNORMAL) PROTIME/INR, VENOUS (02/02/2024 1:52 PM WAX BLEACHER) PROTIME 15.6(H) 9.3 - 11.6 SEC 02/02/2024 8:12 PM WAX BLEACHER [facility] INR 1.5(H) 0.9 - 1.1 02/02/2024 8:12 PM WAX BLEACHER [facility] Comment: TREATMENT OR PROPHYLAXIS AGAINST: ?? THERAPEUTIC RANGE (INR): ?VENOUS THROMBOSIS ? 2.0-3.0 ?PULMONARY EMBOLUS ? 2.0-3.0 ?? MECHANICAL PROSTHETIC VALVES ? 2.5-3.5 02/02/2024 1:52 PM WAX BLEACHER Sanjeev Webster DO LABORATORY Final Re sult Performing Organization Address [facility] Co de Phone Number [facility] [address] [place] [address], * PROTIME/INR, FINGERSTICK (02/02/2024) INR WHOLE BLOOD 1.50 [facility] Comment:venous drawn 02/02/2024 Sanjeev Webster DO LABORATORY Final Re sult Performing Organization Address [facility] Co de Phone Number [facility] [address] [place] [address], documented in this encounter Visit Diagnoses Diagnosis detention (current) use of anticoagulants- Primary Long-term (current) use of anticoagulants documented in this encounter Additional Health Concerns Assessment Noted Time PHQ-9 Depression Total Score: 13 023 3:56 PM CDT documented as of this encounter Care Teams Director Of Medical Education Relationship Specialty Start Date End Date Sanjeev Webster DO [address] [place] [address] PCP - General FAMILY PRACTICE 09/25/20 Dianne Johnson, RN [address] [place] [address] Quarry Supervisor (Ambulatory) REGISTERED NURSE 08/14/20 documented as of this encounter
--- OUTSIDE RECORDS SUMMARY | 2024-03-15 00:47 | XMS_ITS | Encounter Summary ---
Author Organization [facility] Address [facility] [place] [address] [place] [address] Care Team Providers Care Voice Over Announcer Name Role Phone Dianne Johnson RN Unavailable [phone] Sanjeev Webster DO Primary Care Provider + Reason for Visit * Reason Onset Date Comments Results 01/29/2024 Encounter Details Date Type Department Care Team (Late st Contact Info) Description 01/29/2024 Telephone [facility] Medical Group Family & Internal Medicine [id number] [place] [address] Sanjeev Webster DO [facility] [place] [address] Results Social History Tobacco Use Types Packs/Day [...] How often do you attend chur or protestant services? More than 4 times per year 08/26/2022 Do you belong to any clubs o r organizations such as latter day groups, unions, fraternal or athletic groups, or [...] Recorded Patient Health Questionnaire-2 Score 0 12/08/2023 [facility] of Occupat ional Health - [...] to sleep or slept in a senior living (including now)? No 08/26/2022 Comments No Sex [...] Progress Notes * Yenifer Ingram MA - 01/29/2024 9:48 AM CST Patient scheduled for 02/02/2024 ----- Message from Dr. Sanjeev Webster sent at 01/19/2024 11:45 AM PLOW SHAKER ----- Therapeutic; repeat in 2 weeks. SHAKER SHAKER documented in this encounter Plan of Treatment Upcoming Encounters Date Type Department Care Team (Late st Contact Info) Description 04/14/2024 2:00 PM PLOW SHAKER Office Visit [facility] Medical Group Multispecialty Care - [facility] [address] [facility], [address] [place] [address] Julio Pulido MD [address] [place] [address] documented as of this encounter Goals Goal Patient Goal Type Associated Problems Recent Progress Patient-Stated? Author Health - patient able to perform ADLs independently General On track(2023 9:49 AM CDT) Dianne Corona, RN Note: 12/17/23: Patient stated she is independent with ASL's. Establish Plan for Symptom Monitoring-CHF General On track(2023 11:36 AM PLOW SHAKER) Dianne Corona RN Note: Patient will recognize [...] Symptom Monitoring-COPD General On track(2023 11:36 AM PLOW SHAKER) Dianne Corona RN Note: Patient will recognize [...] Symptom Monitoring-DM General On track(2023 4:33 PM PLOW SHAKER) Dianne Corona RN Note: Patient will manage [...] Symptom Monitoring-HTN General On track(2023 4:33 PM PLOW SHAKER) Dianne Corona RN Note: Patient will monitor [...] documented as of this encounter Care Teams Voice Over Announcer Relationship Specialty Start Date End Date Sanjeev Webster DO [address] [place] [address] PCP - General FAMILY PRACTICE 09/25/20 Dianne Johnson, RN [address] [place] [address] Shearer Screen Measurer And Trimmer (Ambulatory) REGISTERED NURSE 08/14/20 documented as of this encounter
--- OUTSIDE RECORDS SUMMARY | 2024-03-15 00:47 | XMS_ITS | Encounter Summary ---
Author Organization [facility] Address [facility] [place] [address] [place] [address] Care Team Providers Care Head Machine Feeder Name Role Phone Casey Johnson RN Unavailable [phone] Sanjeev Webster DO Primary Care Provider + Reason for Visit * Reason Onset Date Comments Care Management 02/11/2024 Encounter Details Date Type Department Care Team (Late st Contact Info) Description 02/11/2024 Patient Outreach [facility] Family & Internal Medicine [address] [address] Casey Johnson, RN [address] [place] [address] Care Management Social History Tobacco [...] How often do you attend chur or temple services? More than 4 times per year 08/26/2022 Do you belong to any clubs o r organizations such as samaritan groups, unions, fraternal or athletic groups, or [...] Health Questionnaire-2 Score 0 12/08/2023 [facility] - Occupational [...] place to sleep or slept in a group home (including now)? No 08/26/2022 Comments No [...] Progress Notes * Casey Johnson RN - 02/11/2024 3:37 PM CST Chronic Care Management: Patient concerns or urgent matters that need addressed: None identified during this phone call. Patient Status: Contacted patient today. Stated she was seen by organizational effectiveness consultant on 01/29/2024. Office visit note in chart. Reviewed upcoming appointments with patient in [facility] today. Reminded her of appointment with on 02/19/2024 at 1:30 PM. Patient stated she was not aware of this appointment and wanted toknow where the appointment is located. She stated if the appointment is in [place] she does not want to be seen. Contacted office and was informed appointment is scheduled at [address] [place] [address] [facility]. Contacted patient back and informed her that appointment is scheduled in [place]. This is a follow-up appointment from her November appointment with him. Patient stated she does not want to see this doctor anymore. Stated she is seen by enough doctors and she is sick of seeing so many doctors. brand coordinator will call office back and cancel her appointment for 02/19/24. Contacted office and canceled appointment scheduled 02/19/2024. Called patient back and asked her if she wanted a referral to see a scheduler maintenance in [place] or closer to home and patient declines. Stating she informed PCP a while back that she did not want to see any more specialists. Stated she is seen by enough specialists at this time. brand coordinator will inform PCP and patient isaware. Patient stated she had an appointment today with general surgery in [place] and was not aware of the appointment. Stated she received a call from the office and they rescheduled her appointment foranother day. Patient could not give the appointment information to career development coordinator/teacher at this time. Stated she had company earlier and did not write down the appointment information. [facility] and get appointment information for patient. Patient is agreeable. Attempted to contact general surgery office and office is closed at this time. brand coordinator will reach out next week to get appointment details. Contacted patient about the above and she verbalizes understanding. Patient had a pro time done on 02/10/2024. INR was 1.9. Patient stated she is supposed to recheck a pro time in 2 weeks. Educated patient on warfarin and food high in vitamin K. Patient stated she is staying away from CABG, broccoli, Spandage, kale, Simon sprouts, and salad. Patient then informedcare coordinator she had a salad 2 weeks ago. Educated patient on the changes in the daily amount of vitamin K intake can alter the INR. Instructed patient if she likes salad, then she should be consistent with eating a salad once a week. Informed patient if she eats a salad every once in a while that will alter her INR. Patient verbalizes understanding. Denies any issues with COPD or CHF exacerbation signs and symptoms at this time. Denies any heart palpitations, increased shortness of breath, or chest pain at this time. Encourage patient to monitorsigns and symptoms closely and at the onset of any changes encouraged patient to reach out to PCP office or career development coordinator/teacher. Patient verbalizes understanding and appreciates career development coordinator/teacher reaching out to her today. Plan of Care: brand coordinator will continue to follow up by phone, provide resources when needed, educate on disease management, and assess chronic conditions Patient Goals: Goals Addressed This Visit's Progress [...] on 01/12/23. Establish Plan for Symptom Monitoring-HTN On track Patient will monitor B/P several times per week , record readings and report to physician or CC if B/P consistently >130/80 Take your medications as prescribed. Follow up with your provider as scheduled. Take your blood pressure at least several times a week if able. Establish Plan for Symptom Monitoring-paroxysmal atrial fib On track Atrial Fib: Patient will recognize symptoms of atrial fibrillation and report to physician should they occur. Establish regular follow ups with Community Life Director, take medications exactly as directed without skipping doses. Upcoming Visit Appointments: Future Appointments Date Time Provider Department Center 02/24/2024 1:40 PM MG TRINH NURSE [facility] 02/29/2024 1:40 PM Sanjeev Webster DO [facility] 03/04/2024 1:00 PM Sania Gomez MD [facility] 04/14/2024 2:00 PM Julio Pulido MD [facility] Quality care gaps: Health Maintenance Topic Date [...] test Chronic anticoagulation Coronary artery disease involving [place] coronary artery of [place] apache heart without angina pectoris H/O mechanical aortic valve replacement Hypertensive heart disease with congestive heart failure ([facility]) LBBB (left bundle branch block) Myopathy VAZQUEZ (obstructive sleep apnea) Paroxysmal atrial flutter ([facility]) Benign hypertension with CKD (chronic kidney disease) stage III ([facility]) Memory deficits Hearing deficit, bilateral History of cataract extraction, unspecified laterality Vitamin D deficiency Hypercalcemia Chronic frontal sinusitis Constipation, unspecified constipation type Chronic bilateral low back pain without sciatica Iron deficiency anemia, unspecified iron deficiency anemia type Disorder of skin of trunk Anemia Body mass index (BMI) 31.0-31.9, adult 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[facility]) Benign hypertension with stage 3b chronic kidney disease ([facility]) Cobalamin deficiency Compression fracture of thoracic vertebra ([facility]) Depression Diabetic polyneuropathy ([facility]) Disorder of rotator cuff Diverticular disease Dysphagia Elevated troponin Gastroesophageal reflux disease without esophagitis Hyperlipidemia, unspecified hyperlipidemia type Vascular dementia ([facility]) Unknown and unspecified causes of morbidity Syncope, unspecified syncope type Wrist joint pain Requires lifelong warfarin therapy Hyperparathyroidism ([facility]) Presence of prosthetic heart valve Plantar fascial fibromatosis Peripheral neuropathy Parathyroid adenoma Polymyalgia rheumatica ([facility]) Osteoporosis Numbness Muscle cramps Closed stable burst fracture of sixth thoracic vertebra, initial encounter ([facility]) Chest pain Contusion of scalp Knee pain Localized, primary osteoarthritis Osteoarthritis of knee Traumatic closed displaced fracture of distal end of radius Shoulder joint pain Hyperlipidemia associated with type 2 diabetes mellitus ([facility]) Hematoma Anxiety Diastolic heart failure ([facility]) Internal hemorrhoids Leukoencephalopathy Major depression single episode, in partial remission ([facility] Metacarpal bone fracture Mitral valve disorder Peripheral arterial occlusive disease ([facility]) Primary osteoarthritis involving multiple joints Vision loss COPD (chronic obstructive pulmonary disease) ([facility]) Diarrhea Drug-induced constipation H/O mechanical aortic valve replacement Age-related osteoporosis with current pathological fracture Care Management Physical deconditioning Chronic heart failure with preserved ejection fraction (HFpEF) ([facility]) Paroxysmal atrial fibrillation ([facility]) Hypertension associated with type 2 diabetes mellitus ([facility]) Encounter for prophylactic measures, unspecified Graves' disease Cirrhosis of liver without ascites, unspecified hepatic cirrhosis type ([facility]) Stage 3b chronic kidney disease ([facility]) OLIVE (acute kidney injury) ([facility]) Heart failure with mildly reduced ejection fraction (HFmrEF) ([facility]) Hyperthyroidism Medications: Current Outpatient Medications Medication Sig [...] with Patient Time spent with patient (minutes): 16 (Comment: Time spent with patient and hematology office.) Time spent performing chart review (minutes): 7 Total time (minutes): 23 CASEY JOHNSON RN I reviewed the patient's status and education provided by CASEY JOHNSON RN. I agree with the findings and recommendations made. Cosigned by Sanjeev Webster DO at 02/15/2024 10:29 AM CUSTOM CLOTHIER OM CLOTHIER OM CLOTHIER documented in this encounter Plan of Treatment Upcoming Encounters Date Type Department Care Team (Late st Contact Info) Description 04/14/2024 2:00 PM CUSTOM CLOTHIER Office Visit [facility] Multispecialty Care - [facility] [address] [facility], [address] [place] [id number] Julio Pulido MD [address] [place] [address] documented as of this encounter Goals Goal Patient Goal Type Associated Problems Recent Progress Patient-Stated? Author Health - patient able to perform ADLs independently General On track(2023 9:49 AM CDT) Casey Corona RN Note: 12/17/23: Patient stated she is independent with ASL's. Establish Plan for Symptom Monitoring-CHF General On track(2023 11:36 AM CUSTOM CLOTHIER) Casey Corona RN Note: Patient will recognize [...] Symptom Monitoring-COPD General On track(2023 11:36 AM CUSTOM CLOTHIER) Casey Corona RN Note: Patient will recognize [...] Symptom Monitoring-DM General On track(2023 4:33 PM CUSTOM CLOTHIER) Casey Corona RN Note: Patient will manage [...] Symptom Monitoring-HTN General On track(2023 4:33 PM CUSTOM CLOTHIER) Casey Corona RN Note: Patient will monitor B/P several times per week , record readings and report to physician or CC if B/P consistently >130/80 Take your medications as prescribed. Follow up with your provider as scheduled. Take your blood pressure at least several times a week if able. Establish Plan for Symptom Monitoring-paroxy smal atrial fib Lifestyle On track(2023 11:36 AM CUSTOM CLOTHIER) Casey Corona RN Note: Atrial Fib: Patient will recognize symptoms of atrial fibrillation and report to physician should they occur. Establish regular follow ups with Community Life Director, take medications exactly as directed without skipping doses. documented as of this encounter Visit Diagnoses Diagnosis Paroxysmal atrial fibrillation ([facility])- Primary Atrial fibrillation Chronic obstructive pulmonary disease, unspecified COPD type ([facility]) Chronic heart failure with preserved ejection fraction (HFpEF) ([facility]) documented in this encounter Additional Health Concerns Assessment Noted Time PHQ-9 Depression Total Score: 13 023 3:56 PM CDT documented as of this encounter Care Teams Head Machine Feeder Relationship Specialty Start Date End Date Sanjeev Webster DO [address] [place] [address] PCP - General FAMILY PRACTICE 09/25/20 Casey Johnson, RN [address] [place] [address] In Service Educator (Ambulatory) REGISTERED NURSE 08/14/20 documented as of this encounter
--- OUTSIDE RECORDS SUMMARY | 2024-03-15 00:47 | XMS_ITS | Encounter Summary ---
Author Organization [facility] Address [facility] [place] [address] [place] [address] Care Team Providers Care Computerized Machine Fabric Cutter Name Role Phone Dianne Johnson RN Unavailable [phone] Sanjeev Webster DO Primary Care Provider + Encounter Details Date Type Department Care Team (Latest Contact Info) Description 02/10/2024 Travel Social History Tobacco Use Types Packs/Day [...] How often do you attend chur or cheondoism services? More than 4 times per year 08/26/2022 Do you belong to any clubs o r organizations such as confucianism groups, unions, fraternal or athletic groups, or [...] Recorded Patient Health Questionnaire-2 Score 0 12/08/2023 [facility] Health - Occupational [...] st Contact Info) Description 04/14/2024 2:00 PM MUSICAL INSTRUMENT MAKER OR REPAIRER Office Visit [facility] Multispecialty Care - [facility] [address] [facility], [address] [place] [address] Julio Pulido MD 3 [place] [address] documented as of this encounter Goals Goal Patient Goal Type Associated Problems Recent Progress Patient-Stated? Author Health - patient able to perform ADLs independently General On track(2023 9:49 AM CDT) Dianne Corona RN Note: 12/17/23: Patient stated she is independent with ASL's. Establish Plan for Symptom Monitoring-CHF General On track(2023 11:36 AM MUSICAL INSTRUMENT MAKER OR REPAIRER) Dianne Corona RN Note: Patient will recognize [...] Symptom Monitoring-COPD General On track(2023 11:36 AM MUSICAL INSTRUMENT MAKER OR REPAIRER) Dianne Corona RN Note: Patient will recognize [...] Symptom Monitoring-DM General On track(2023 4:33 PM MUSICAL INSTRUMENT MAKER OR REPAIRER) Dianne Corona RN Note: Patient will manage [...] Symptom Monitoring-HTN General On track(2023 4:33 PM MUSICAL INSTRUMENT MAKER OR REPAIRER) Dianne Corona, RN Note: Patient will monitor [...] documented as of this encounter Care Teams Computerized Machine Fabric Cutter Relationship Specialty Start Date End Date Sanjeev Webster DO [address] [place] [address] PCP - General FAMILY PRACTICE 09/25/20 Dianne Johnson, RN [address] [place] [address] Assembly Line Machine Operator (Ambulatory) REGISTERED NURSE 08/14/20 documented as of this encounter
--- OUTSIDE RECORDS SUMMARY | 2024-03-15 00:47 | XMS_ITS | Encounter Summary ---
Author Organization [facility] Address Critical access hospital6 [facility] [place] [address] [place] [address] Care Team Providers Care Imaging Services Director Name Role Phone Dianne Johnson RN Unavailable [phone] Sanjeev Webster DO Primary Care Provider + Encounter Details Date Type Department Care Team (Latest Contact Info) Description 02/02/2024 Travel Social History Tobacco Use Types Packs/Day [...] How often do you attend chur or uatsdin services? More than 4 times per year 08/26/2022 Do you belong to any clubs o r organizations such as scientologist groups, unions, fraternal or athletic groups, or [...] Recorded Patient Health Questionnaire-2 Score 0 12/08/2023 [facility] Occupat ional Health - [...] place to sleep or slept in a residential (including now)? No 08/26/2022 Comments No Sex [...] st Contact Info) Description 04/14/2024 2:00 PM TABLE COVER FOLDER Office Visit [facility] Multispecialty Care - [facility] [address] [facility], [address] [place] [address] Julio Pulido MD [address] [place] [address] documented as of this encounter Goals Goal Patient Goal Type Associated Problems Recent Progress Patient-Stated? Author Health - patient able to perform ADLs independently General On track(2023 9:49 AM CDT) Dianne Corona RN Note: 12/17/23: Patient stated she is independent with ASL's. Establish Plan for Symptom Monitoring-CHF General On track(2023 11:36 AM TABLE COVER FOLDER) Dianne Corona RN Note: Patient will recognize [...] Symptom Monitoring-COPD General On track(2023 11:36 AM TABLE COVER FOLDER) Dianne Corona RN Note: Patient will recognize [...] Symptom Monitoring-DM General On track(2023 4:33 PM TABLE COVER FOLDER) Dianne Corona RN Note: Patient will manage [...] Symptom Monitoring-HTN General On track(2023 4:33 PM TABLE COVER FOLDER) Dianne Corona, RN Note: Patient will monitor [...] documented as of this encounter Care Teams Imaging Services Director Relationship Specialty Start Date End Date Sanjeev Webster DO [address] [place] [address] PCP - General FAMILY PRACTICE 09/25/20 Dianne Johnson, RN [address] [place] [address] Senior Sql Server Dba (Ambulatory) REGISTERED NURSE 08/14/20 documented as of this encounter
--- OUTSIDE RECORDS SUMMARY | 2024-03-15 00:47 | XMS_ITS | Encounter Summary ---
Author Organization [facility] Address [facility] [place] [address] [place] [address] Care Team Providers Care Customer Counter Representative Name Role Phone Dianne Johnson RN Unavailable [phone] Sanjeev Webster DO Primary Care Provider + Reason for Visit * Reason Onset Date Comments Results 02/24/2024 Encounter Details Date Type Department Care Team (Late st Contact Info) Description 02/24/2024 Telephone [facility] Family & Internal Medicine [place] [id number] [place] [address] Sanjeev Webster DO [facility] [place] [address] Results Social History Tobacco Use [...] How often do you attend chur or buddhism services? More than 4 times per year 08/26/2022 Do you belong to any clubs o r organizations such as lutheran groups, unions, fraternal or athletic groups, or [...] Progress Notes * Yenifer Ingram MA - 02/24/2024 3:27 PM CST Spoke with patient and informed her of recommendations. Refill sent out as advised verbally by PCP. TRANSITION * Sanjeev Webster DO - 02/24/2024 3:05 PM CST Restart the colchicine and we can discuss at next scheduled OV. TRANSITION * Yenifer Ingram MA - 02/24/2024 2:11 PM CST Patient came in for INR today. On her way out of the office she proceeded to tell me she had stopped the colchicine for gout since she was not longer having pain. The patient states she had to restart the medication due to the pain returning and effecting her whole foot. Please advise. TRANSITION documented in this encounter Plan of Treatment Upcoming Encounters Date Type Department Care Team (Late st Contact Info) Description 04/14/2024 2:00 PM RN TRANSITION Office Visit [facility] Multispecialty Care - [address], [address] [place] [address] Julio Pulido MD [address] [place] [address] documented as of this encounter Goals Goal Patient Goal Type Associated Problems Recent Progress Patient-Stated? Author Health - patient able to perform ADLs independently General On track(2023 9:49 AM CDT) Dianne Corona RN Note: 12/17/23: Patient stated she is independent with ASL's. Establish Plan for Symptom Monitoring-CHF General On track(2023 11:36 AM RN TRANSITION) Dianne Corona RN Note: Patient will recognize [...] Symptom Monitoring-COPD General On track(2023 11:36 AM RN TRANSITION) Dianne Corona RN Note: Patient will recognize [...] Symptom Monitoring-DM General On track(2023 4:33 PM RN TRANSITION) Dianne Corona RN Note: Patient will manage [...] Symptom Monitoring-HTN General On track(2023 4:33 PM RN TRANSITION) Dianne Corona RN Note: Patient will monitor B/P several times per week , record readings and report to physician or CC if B/P consistently >130/80 Take your medications as prescribed. Follow up with your provider as scheduled. Take your blood pressure at least several times a week if able. Establish Plan for Symptom Monitoring-paroxy smal atrial fib Lifestyle On track(2023 11:36 AM RN TRANSITION) Dianne Corona RN Note: Atrial Fib: Patient will recognize symptoms of atrial fibrillation and report to physician should they occur. Establish regular follow ups with Rack Washer, take medications exactly as directed without skipping doses. documented as of this encounter Visit Diagnoses Diagnosis Acute gout of left foot, unspecified cause documented in this encounter Additional Health Concerns Assessment Noted Time PHQ-9 Depression Total Score: 13 023 3:56 PM CDT documented as of this encounter Care Teams Customer Counter Representative Relationship Specialty Start Date End Date Sanjeev Webster DO [address] [place] [address] PCP - General FAMILY PRACTICE 09/25/20 Dianne Johnson, RN [address] [place] [address] Stores Despatch Hand (Ambulatory) REGISTERED NURSE 08/14/20 documented as of this encounter
--- OUTSIDE RECORDS SUMMARY | 2024-03-15 00:47 | XMS_ITS | Encounter Summary ---
Author Organization [facility] Address [facility] [facility] [place] [address] [place] [address] Care Team Providers Care Chief Of Staff Name Role Phone Casey Johnson RN Unavailable [phone] Sanjeev [place] DO Primary Care Provider + Reason for Visit * Reason Onset Date Comments Care Management 02/22/2024 Encounter Details Date Type Department Care Team (Late st Contact Info) Description 02/22/2024 Patient Outreach [facility] Family & Internal Medicine [address] [address] Caesy Johnson, RN [address] [place] [address] Care Management Social History Tobacco [...] How often do you attend chur or jewish services? More than 4 times per year 08/26/2022 Do you belong to any clubs o r organizations such as presybeterian groups, unions, fraternal or athletic groups, or [...] Recorded Patient Health Questionnaire-2 Score 0 12/08/2023 [facility] of Occupat ional Health - Occupational Stress [...] Progress Notes * Casey Johnson RN - 02/22/2024 11:36 AM CST Chronic Care Management: 02/22/24: Patient left a message to return phone call. Attempted to contact patient back without a response. [facility]: Contacted patient. See below for details. Patient concerns or urgent matters that need addressed: None identified during this phone call. Patient Status: Patient stated she called CC earlier today about a question she had addressed already. Stated she is scheduled for a test on 03/21/24 at 8:[address] [facility] [address] Farrell (Double Ending Machine Operator). Stated she really likes him and he explains everything in detail. Stating the test she is having is to check her heart to see if she has any blockages. She stated her heart will beat ok, then it goes low is what the Double Ending Machine Operator explained to her. He will be performing the test and she anticipates the results the same day. She will keep CC updated. Stating she is to f/u with in 6 months. Patient currently has an appointment with on 03/04/24. She is requesting CC cx appointment. Message sen t to nurse and livestock counter to cx appointment. Educated on s/s of CHF and COPD exacerbation. Patient denies any issues at this time. Denies swelling, increased sob and gained 1 lb over night. Encouraged to weigh self every morning and report a 3 lb weight gain, the onset of increased sob, increased or persistent cough to CC. If life threateningto go to ER. Patient denies any s/s of atrial fib at this time. Educated on s/s of atrial fib to monitor. If life threatening to seek medical attention right away. Confirmed lab appointment at PCP office on 02/24/24 at 1:40 PM, appointment with PCP on 02/29/24 at1:40 PM and appointment with on 02/26/24 at 10:30 am. Address is [address] [place] [address] [address] in [place]. Phone number [phone]. CC will contact patient closer to appointment to remind her since this is the fourth time office scheduled appointment. Patient is agreeable. Plan of Care: commercial coordinator will continue to follow up by [...] they occur. Establish regular follow ups with Double Ending Machine Operator, take medications exactly as directed without skipping doses. Upcoming Visit Appointments: Future Appointments Date Time Provider Department Center 02/24/2024 1:40 [facility] 02/29/2024 1:40 PM Sanjeev [place] DO [facility] 03/04/2024 1:00 PM Sania Gomez MD [facility] 04/14/2024 2:00 PM JulioMD NALINI Cedeno MSC [facility] Quality care gaps: Health Maintenance Topic Date Due Annual Medicare Wellness Visit Never done RSV Immunization or 60+ Years (1 - 1-dose 75+ series) Never done Zoster Vaccines (3 of 3) 01/06/2023 COVID-19 Vaccine (5 - 2023- season) 2112 (Originally 11/08/2023) Diabetes: [...] test Chronic anticoagulation Coronary artery disease involving blue lake coronary artery of blue lake heart without angina pectoris H/O mechanical aortic valve replacement Hypertensive heart disease with congestive heart failure ([facility]) LBBB (left bundle branch block) Myopathy VAZQUEZ (obstructive sleep apnea) Paroxysmal atrial flutter ([facility]) Benign hypertension with CKD (chronic kidney disease) stage III ([facility]) Memory deficits Hearing deficit, bilateral History of cataract extraction, unspecified laterality Vitamin D deficiency Hypercalcemia Chronic frontal sinusitis Constipation, unspecified constipation type Chronic bilateral low back pain without sciatica Iron deficiency anemia, unspecified iron deficiency anemia type Disorder of skin of trunk Anemia Body mass index (BMI) 31.0-31.9, adult 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[facility]) Benign hypertension with stage 3b chronic kidney disease ([facility]) Cobalamin deficiency Compression fracture of thoracic vertebra ([facility]) Depression Diabetic polyneuropathy ([facility]) Disorder of rotator cuff Diverticular disease Dysphagia Elevated troponin Gastroesophageal reflux disease without esophagitis Hyperlipidemia, unspecified hyperlipidemia type Vascular dementia ([facility]) Unknown and unspecified causes of morbidity Syncope, unspecified syncope type Wrist joint pain Requires lifelong warfarin therapy Hyperparathyroidism ([facility]) Presence of prosthetic heart valve Plantar fascial fibromatosis Peripheral neuropathy Parathyroid adenoma Polymyalgia rheumatica ([facility]) Osteoporosis Numbness Muscle cramps Closed stable burst fracture of sixth thoracic vertebra, initial encounter ([facility]) Chest pain Contusion of scalp Knee pain Localized, primary osteoarthritis Osteoarthritis of knee Traumatic closed displaced fracture of distal end of radius Shoulder joint pain Hyperlipidemia associated with type 2 diabetes mellitus ([facility]) Hematoma Anxiety Diastolic heart failure ([facility]) Internal hemorrhoids Leukoencephalopathy Major depression single episode, in partial remission ([facility]) Metacarpal bone fracture Mitral valve disorder Peripheral arterial occlusive disease ([facility]) Primary osteoarthritis involving multiple joints Vision loss COPD (chronic obstructive pulmonary disease) ([facility]) Diarrhea Drug-induced constipation H/O mechanical aortic valve replacement Age-related osteoporosis with current pathological fracture Care Management Physical deconditioning Chronic heart failure with preserved ejection fraction (HFpEF) ([facility]) Paroxysmal atrial fibrillation ([facility]) Hypertension associated with type 2 diabetes mellitus ([facility]) Encounter for prophylactic measures, unspecified Graves' disease Cirrhosis of liver without ascites, unspecified hepatic cirrhosis type ([facility]) Stage 3b chronic kidney disease ([facility]) OLIVE (acute kidney injury) ([facility]) Heart failure with mildly reduced ejection fraction (HFmrEF) ([facility]) Hyperthyroidism Medications: Current Outpatient Medications Medication [...] with Patient Time spent with patient (minutes): 14 Time spent performing chart review (minutes): 7 Total time (minutes): 21 CASEY JOHNSON RN I reviewed the patient's status and education provided by CASEY JOHNSON RN. I agree with the findings and recommendations made. Cosigned by Sanjeev [place] DO at 02/23/2024 1:09 PM AIRPORT DRIVER ORT DRIVER ORT DRIVER documented in this encounter Plan of Treatment Upcoming Encounters Date Type Department Care Team (Late st Contact Info) Description 04/14/2024 2:00 PM AIRPORT DRIVER Office Visit [facility] Multispecialty Care - [facility] [address] [facility], [address] [place] [address] Julio Pulido MD [address] [place] [address] documented as of this encounter Goals Goal Patient Goal Type Associated Problems Recent Progress Patient-Stated? Author Health - patient able to perform ADLs independently General On track(2023 9:49 AM CDT) Casey Corona RN Note: 12/17/23: Patient stated she is independent with ASL's. Establish Plan for Symptom Monitoring-CHF General On track(2023 11:36 AM AIRPORT DRIVER) Casey Corona RN Note: Patient will recognize [...] Symptom Monitoring-COPD General On track(2023 11:36 AM AIRPORT DRIVER) Casey Corona RN Note: Patient will recognize [...] Symptom Monitoring-DM General On track(2023 4:33 PM AIRPORT DRIVER) Casey Corona RN Note: Patient will manage [...] Symptom Monitoring-HTN General On track(2023 4:33 PM AIRPORT DRIVER) Casey Corona RN Note: Patient will monitor B/P several times per week , record readings and report to physician or CC if B/P consistently >130/80 Take your medications as prescribed. Follow up with your provider as scheduled. Take your blood pressure at least several times a week if able. Establish Plan for Symptom Monitoring-paroxy smal atrial fib Lifestyle On track(2023 11:36 AM AIRPORT DRIVER) No Casey [place] RN Note: Atrial Fib: Patient will recognize symptoms of atrial fibrillation and report to physician should they occur. Establish regular follow ups with Double Ending Machine Operator, take medications exactly as directed without skipping doses. documented as of this encounter Visit Diagnoses Diagnosis Paroxysmal atrial flutter ([facility])- Primary Atrial flutter Chronic heart failure with preserved ejection fraction (HFpEF) ([facility]) Chronic obstructive pulmonary disease, unspecified COPD type ([facility]) documented in this encounter Additional Health Concerns Assessment Noted Time PHQ-9 Depression Total Score: 13 023 3:56 PM CDT documented as of this encounter Care Teams Chief Of Staff Relationship Specialty Start Date End Date Sanjeev [place] DO [address] [place] [address] [id number] PCP - General FAMILY PRACTICE 09/25/20 [place] Johnson, RN [address] [place] [address] Legal Writing Professor (Ambulatory) REGISTERED NURSE 08/14/20 documented as of this encounter
--- OUTSIDE RECORDS SUMMARY | 2024-03-15 00:47 | XMS_ITS | Encounter Summary ---
Author Organization [facility] Address [facility] [facility]. [place], [place] [address] [place] [id number] Care Team Providers Care Caramel Candy Maker Helper Name Role Phone Dianne Johnson RN Unavailable [phone] Sanjeev [place] DO Primary Care Provider + Reason for Visit * Reason Onset Date Comments Results 02/05/2024 Encounter Details Date Type Department Care Team (Late st Contact Info) Description 02/05/2024 Telephone [facility] Family & Internal Medicine [id number] [place] [address] Sanjeev [place] DO [facility] [place] [address] Results Social History Tobacco Use [...] How often do you attend chur or jew services? More than 4 times per year 08/26/2022 Do you belong to any clubs o r organizations such as rastafarian groups, unions, fraternal or athletic groups, or [...] Recorded Patient Health Questionnaire-2 Score 0 12/08/2023 [facility] of Occupat ional Health - Occupational Stress [...] Date Author Status No 08/26/2022 7:46 PM CDIndiana Verdugo RN Active documented in this encounter Progress Notes * Yenifer Ingram MA - 02/05/2024 10:32 AM CST Spoke with patient and informed her of changes as well and scheduled NV INR FACTURING ENGINEER ASSEMBLY * Yenifer Ingram MA - 02/05/2024 10:25 AM CST LMOM for r/c on patient's number listed. LMOM for izzy with changes in medication dosing. Informed izzy to call the office with questions or if clarification is needed. INR NV needs to be scheduled. ----- Message from Dr. Sanjeev [place] sent at 02/03/2024 2:48 PM MANUFACTURING ENGINEER ASSEMBLY ----- PT/INR is again subtherapeutic. Let's have pt increase warfarin to 6 mg M-W and stay at 5 mg R-Sun.Recheck in 1 week. FACTURING ENGINEER ASSEMBLY FACTURING ENGINEER ASSEMBLY documented in this encounter Plan of Treatment Upcoming Encounters Date Type Department Care Team (Late st Contact Info) Description 04/14/2024 2:00 PM MANUFACTURING ENGINEER ASSEMBLY Office Visit [facility] Multispecialty Care - [facility] [address] [facility], [address] [place] [address] Julio Pulido MD [address] [place] [address] (work) documented as of this encounter Goals Goal Patient Goal Type Associated Problems Recent Progress Patient-Stated? Author Health - patient able to perform ADLs independently General On track(2023 9:49 AM CDT) Dianne Corona RN Note: 12/17/23: Patient stated she is independent with ASL's. Establish Plan for Symptom Monitoring-CHF General On track(2023 11:36 AM MANUFACTURING ENGINEER ASSEMBLY) Dianne Corona RN Note: Patient will recognize [...] Symptom Monitoring-COPD General On track(2023 11:36 AM MANUFACTURING ENGINEER ASSEMBLY) Dianne Corona RN Note: Patient will recognize [...] Symptom Monitoring-DM General On track(2023 4:33 PM MANUFACTURING ENGINEER ASSEMBLY) Dianne Corona RN Note: Patient will manage [...] Symptom Monitoring-HTN General On track(2023 4:33 PM MANUFACTURING ENGINEER ASSEMBLY) Dianne Corona, RN Note: Patient will monitor [...] documented as of this encounter Care Teams Caramel Candy Maker Helper Relationship Specialty Start Date End Date Sanjeev [place] DO [address] [place] [address] PCP - General FAMILY PRACTICE 09/25/20 Dianne [place], RN [address] [place] [address] Hide Worker (Ambulatory) REGISTERED NURSE 08/14/20 documented as of this encounter
--- OUTSIDE RECORDS SUMMARY | 2024-03-15 00:47 | XMS_ITS | Encounter Summary ---
Author Organization [facility] Address [facility] [place] [address] [place] [address] Care Team Providers Care Preparatory Technician Name Role Phone Dianne [place] RN Unavailable [phone] Sanjeev [place] DO Primary Care Provider + Encounter Details Date Type Department Care Team (Latest Contact Info) Description 01/29/2024 Scan HEALTH INFO SRVCS Scanned, Doc Med [...] often do you attend chur ch or temple services? More than 4 times per year 08/26/2022 Do you belong to any clubs o r organizations such as baptism groups, unions, fraternal or athletic groups, or [...] Recorded Patient Health Questionnaire-2 Score 0 12/08/2023 [facility] of Occupat ional Health - Occupational [...] place to sleep or slept in a intermediate (including now)? No 08/26/2022 Comments No Sex [...] st Contact Info) Description 04/14/2024 2:00 PM COAL HAULER OPERATOR Office Visit [facility] Multispecialty Care - [facility] [address] [facility], [address] [place] [address] Julio Pulido MD 3 [place] [address] documented as of this encounter Goals Goal Patient Goal Type Associated Problems Recent Progress Patient-Stated? Author Health - patient able to perform ADLs independently General On track(2023 9:49 AM CDT) Dianne Corona RN Note: 12/17/23: Patient stated she is independent with ASL's. Establish Plan for Symptom Monitoring-CHF General On track(2023 11:36 AM COAL HAULER OPERATOR) Dianne Corona RN Note: Patient will [...] Symptom Monitoring-COPD General On track(2023 11:36 AM COAL HAULER OPERATOR) Dianne Corona RN Note: Patient will [...] Symptom Monitoring-DM General On track(2023 4:33 PM COAL HAULER OPERATOR) Dianne Corona, RN Note: Patient will manage her diabetes [...] Symptom Monitoring-HTN General On track(2023 4:33 PM COAL HAULER OPERATOR) Dianne Corona, RN Note: Patient will monitor [...] documented as of this encounter Care Teams Preparatory Technician Relationship Specialty Start Date End Date Sanjeev [place] DO [address] [place] [address] PCP - General FAMILY PRACTICE 09/25/20 Dianne [place] RN [address] [place] [address] Pickle Pumper (Ambulatory) REGISTERED NURSE 6/8/21 documented as of this encounter
--- OUTSIDE RECORDS SUMMARY | 2024-03-15 00:47 | XMS_ITS | Encounter Summary ---
Author Organization [facility] Address [facility] [facility] [place] [address] [place] [address] Care Team Providers Care Sheet Metal Pattern Cutter Name Role Phone Dianne [place] RN Unavailable [phone] Sanjeev [place] DO Primary Care Provider + Encounter Details Date Type Department Care Team (Latest Contact Info) Description 02/24/2024 Travel Social History Tobacco Use Types Packs/Day [...] How often do you attend chur or mosque services? More than 4 times per year 08/26/2022 Do you belong to any clubs o r organizations such as judaism groups, unions, fraternal or athletic groups, or [...] Recorded Patient Health Questionnaire-2 Score 0 12/08/2023 [facility] of Occupat ional Health - Occupational Stress [...] place to sleep or slept in a custodial (including now)? No 08/26/2022 Comments No Sex [...] st Contact Info) Description 04/14/2024 2:00 PM ARRANGER ASSEMBLER Office Visit [facility] Multispecialty Care - [facility] [address] [facility], [address] [place] [address] Julio Pulido MD 3 [place] [address] documented as of this encounter Goals Goal Patient Goal Type Associated Problems Recent Progress Patient-Stated? Author Health - patient able to perform ADLs independently General On track(2023 9:49 AM CDT) Dianne Corona RN Note: 12/17/23: Patient stated she is independent with ASL's. Establish Plan for Symptom Monitoring-CHF General On track(2023 11:36 AM ARRANGER ASSEMBLER) Dianne Corona RN Note: Patient will recognize [...] Symptom Monitoring-COPD General On track(2023 11:36 AM ARRANGER ASSEMBLER) Dianne Corona RN Note: Patient will recognize [...] Symptom Monitoring-DM General On track(2023 4:33 PM ARRANGER ASSEMBLER) Dianne Corona RN Note: Patient will manage [...] Symptom Monitoring-HTN General On track(2023 4:33 PM ARRANGER ASSEMBLER) Dianne Corona RN Note: Patient will monitor B/P several times per week , record readings and report to physician or CC if B/P consistently >130/80 Take your medications as prescribed. Follow up with your provider as scheduled. Take your blood pressure at least several times a week if able. Establish Plan for Symptom Monitoring-paroxy smal atrial fib Lifestyle On track(2023 11:36 AM ARRANGER ASSEMBLER) Dianne Corona RN Note: Atrial Fib: Patient will recognize symptoms of atrial fibrillation and report to physician should they occur. Establish regular follow ups with Fence Making Machine Operator, take medications exactly as directed without skipping doses. documented as of this encounter Visit Diagnoses Not on filedocumented in this encounter Additional Health Concerns Assessment Noted Time PHQ-9 Depression Total Score: 13 023 3:56 PM CDT documented as of this encounter Care Teams Sheet Metal Pattern Cutter Relationship Specialty Start Date End Date Sanjeev [place] DO [address] [place] [address] [id number] PCP - General FAMILY PRACTICE 09/25/20 Dianne [place], RN [address] [place] [address] Portrait Consultant (Ambulatory) REGISTERED NURSE 08/14/20 documented as of this encounter
--- OUTSIDE RECORDS SUMMARY | 2024-03-15 00:47 | XMS_ITS | Encounter Summary ---
Author Organization [facility] Address [facility] [place] [address] [place] [address] Care Team Providers Care Cranberry Sorter Name Role Phone Dianne Johnson RN Unavailable [phone] Sanjeev Webster DO Primary Care Provider + Reason for Visit * Reason Onset Date Comments Called To Cancel Office Appt. 02/22/2024 Encounter Details Date Type Department Care Team (Late st Contact Info) Description 02/22/2024 Telephone [facility], [address] [place] [address] Sania Gomez MD Three [facility] [address] [place] [address] Called To Cancel Office Appt. Social History [...] How often do you attend chur or yarsani services? More than 4 times per year 08/26/2022 Do you belong to any clubs o r organizations such as hoahaoism groups, unions, fraternal or athletic groups, or [...] Recorded Patient Health Questionnaire-2 Score 0 12/08/2023 [facility] of Occupat ional Health - Occupational Stress [...] documented in this encounter Progress Notes * Mary Beth Hope - 02/22/2024 2:40 PM CST Appt cancelled ER HELPER * Mary Beth Hope - 02/22/2024 2:40 PM CST Images from the original note were not included. Dianne Johnson RN1 hour ago (1:34 PM) CL Please cx appointment with on 03/04/24. She is seeing a Senior Credit Analyst through [facility]. Thank you. Note ER HELPER documented in this encounter Plan of Treatment Upcoming Encounters Date Type Department Care Team (Late st Contact Info) Description 04/14/2024 2:00 PM PUMPER HELPER Office Visit [facility] Medical Group Multispecialty Care - [facility] [address] [facility], [address] [place] [id number] Julio Pulido MD 3 [place], [place] [id number] documented as of this encounter Goals Goal Patient Goal Type Associated Problems Recent Progress Patient-Stated? Author Health - patient able to perform ADLs independently General On track(2023 9:49 AM CDT) Dianne Corona, RN Note: 12/17/23: Patient stated she is independent with ASL's. Establish Plan for Symptom Monitoring-CHF General On track(2023 11:36 AM PUMPER HELPER) Dianne Corona RN Note: Patient will recognize [...] Symptom Monitoring-COPD General On track(2023 11:36 AM PUMPER HELPER) Dianne Corona RN Note: Patient will recognize [...] Symptom Monitoring-DM General On track(2023 4:33 PM PUMPER HELPER) Dianne Corona RN Note: Patient will manage [...] Symptom Monitoring-HTN General On track(2023 4:33 PM PUMPER HELPER) Dianne Corona RN Note: Patient will monitor B/P several times per week , record readings and report to physician or CC if B/P consistently >130/80 Take your medications as prescribed. Follow up with your provider as scheduled. Take your blood pressure at least several times a week if able. Establish Plan for Symptom Monitoring-paroxy smal atrial fib Lifestyle On track(2023 11:36 AM PUMPER HELPER) Dianne Corona RN Note: Atrial Fib: Patient will recognize symptoms of atrial fibrillation and report to physician should they occur. Establish regular follow ups with Senior Credit Analyst, take medications exactly as directed without skipping doses. documented as of this encounter Visit Diagnoses Not on filedocumented in this encounter Additional Health Concerns Assessment Noted Time PHQ-9 Depression Total Score: 13 023 3:56 PM CDT documented as of this encounter Care Teams Cranberry Sorter Relationship Specialty Start Date End Date Sanjeev Webster DO [address] [place] [address] PCP - General FAMILY PRACTICE 09/25/20 Dianne Johnson RN [address] [place] [address] Sander Machine (Ambulatory) REGISTERED NURSE 08/14/20 documented as of this encounter
--- OUTSIDE RECORDS SUMMARY | 2024-03-15 00:47 | XMS_ITS | Encounter Summary ---
Author Organization [facility] Address [facility] [place] [address] [place] [address] Care Team Providers Care Operations Intern Name Role Phone Dianne Johnson RN Unavailable [phone] Sanjeev Webster DO Primary Care Provider + Reason for Visit * Reason Comments Allied Health Visit Fingerstick INR Encounter Details Date Type Department Care Team (Latest Contact Info) Description 02/24/2024 1:40 PM CORE CHECKER Allied Health/Nurse Visit [facility] Medical Group Family & Internal Medicine [address] [address] Sanjeev Webster DO [facility] [place] [address] Allied Health Visit (Fingerstick INR) Social History Tobacco Use Types Packs/Day Years [...] How often do you attend chur or synagogue services? More than 4 times per year 08/26/2022 Do you belong to any clubs o r organizations such as restorationist groups, unions, fraternal or athletic groups, or [...] Recorded Patient Health Questionnaire-2 Score 0 12/08/2023 [facility] of Occupat ionco Health - Occupational Stress Questionnaire Answer Date [...] documented in this encounter Progress Notes * Latha Ring MA - 02/24/2024 1:40 PM CSTAddended by: LATHA RING on: 02/24/2024 01:59 PM Modules accepted: Orders CHECKER * Latha Ring MA - 02/24/2024 1:40 PM CST Patient presented to office for Fingerstick INR. INR read 2.0. Spoke to PCP and received VO for change in Warfarin dosing. Change to 6 mg M-R and then 5 mg F-Sun. Repeat in 2 weeks. This RAAD left voicemail for patient's [id number], Izzy, to return call to office. 02/24/24 1:39 PM CHECKER * Yenifer Ingram MA - 02/24/2024 1:40 PM CST Spoke with Izzy and informed her of the recommendations. I have another message sent to provider inregards to gout. Will call patient to schedule when provider responds. CHECKER * Yenifer Ingram MA - 02/24/2024 1:40 PM CST Spoke with patient and she is able to come in for repeat INR on 03/10/2023 at 1:40PM. Message sent to Alana Asher to add her on the [place] schedule. CHECKER CHECKER documented in this encounter Plan of Treatment Upcoming Encounters Date Type Department Care Team (Late st Contact Info) Description 04/14/2024 2:00 PM CORE CHECKER Office Visit [facility] Medical Group Multispecialty Care - [facility] [address] [facility], [address] [place] [address] Julio Pulido MD 3 [place] [address] documented as of this encounter Goals Goal Patient Goal Type Associated Problems Recent Progress Patient-Stated? Author Health - patient able to perform ADLs independently General On track(2023 9:49 AM CDT) Dianne Corona, DALE Note: 12/17/23: Patient stated she is independent with ASL's. Establish Plan for Symptom Monitoring-CHF General On track(2023 11:36 AM CORE CHECKER) Dianne Corona, RN Note: Patient will recognize [...] Symptom Monitoring-COPD General On track(2023 11:36 AM CORE CHECKER) Dianne Corona, RN Note: Patient will recognize [...] Symptom Monitoring-DM General On track(2023 4:33 PM CORE CHECKER) Dianne Corona RN Note: Patient will manage [...] Symptom Monitoring-HTN General On track(2023 4:33 PM CORE CHECKER) Dianne Corona RN Note: Patient will monitor B/P several times per week , record readings and report to physician or CC if B/P consistently >130/80 Take your medications as prescribed. Follow up with your provider as scheduled. Take your blood pressure at least several times a week if able. Establish Plan for Symptom Monitoring-paroxy smal atrial fib Lifestyle On track(2023 11:36 AM CORE CHECKER) Dianne Corona RN Note: Atrial Fib: Patient will recognize symptoms of atrial fibrillation and report to physician should they occur. Establish regular follow ups with Grades 7 8 Tutor, take medications exactly as directed without skipping doses. 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
--- OUTSIDE RECORDS SUMMARY | 2024-03-15 00:48 | XMS_ITS | Encounter Summary ---
Author Organization [facility] Address [facility] [facility] [address] [place] [address] Care Team Providers Care Main Line Assembler Name Role Phone Casey Johnson RN Unavailable [phone] Sanjeev Webster DO Primary Care Provider + Reason for Visit * Reason Onset Date Comments Care Management 12/23/2023 Encounter Details Date Type Department Care Team (Late st Contact Info) Description 12/23/2023 Patient Outreach [facility] Medical Group Family & Internal Medicine [address] [address] Casey Johnson, RN [address] [place] [address] Care Management Social History Tobacco [...] Progress Notes * Casey Johnson RN - 12/23/2023 8:25 AM CDT Chronic Care Management: Patient concerns that need addressed: Patient inquiring if Ozempic from PAP has been delivered to the office. She only has one pen left. She is wanting to know if Ozempic dose will be increased. Stated so far she's lost 2 lbs and 6 ounces. The above information sent to 's nursing team. Patient Status: Reviewed recent chart notes in [facility]. Contacted patient today. Stated she did not receive a call back from [facility] about walker. Offered to call [facility] to find out status. Patient is agreeable. 12/23/23: Contacted [facility] and left a message for Nina Parker to return phone call regarding status of walker. 12/23/23: Contacted patient about the above and she verbalizes understanding. Patient continues to have a little bit of pain in right foot from gout. Stated she is currently at [facility]. Offeredto call patient back later and she is agreeable. 12/23/23: Kathleen with [facility] called to confirm she received order for walker. Stated it's processing now. Once it goes through the insurance she will give patient a call to collect money if anyand set up delivery. 12/23/15: Contacted patient and informed of the above information. Patient verbalizes understanding. Stated last BM was yesterday. Today she feels a little nauseous. Educated on s/s of ozempic. Deniesvomiting, diarrhea or stomach pain. Encouraged to be seen if s/s continue. Patient verbalizes understanding and declines being seen at this time. Denies issues with CP, increased sob or swelling. Denies issues with COPD or CHF exacerbation s/s at this time. Plan of Care: summer school coordinator will continue to follow up by [...] any of your medications without notifying provider Upcoming Visit Appointments: Future Appointments Date Time Provider Department Center 12/28/2023 10:00 AM MG [facility] FM NURSE [facility] 02/29/2024 1:40 PM Sanjeev Webster DO [facility] 03/04/2024 1:00 PM Sania Gomez MD [facility] 04/14/2024 2:00 PM Julio Pulido MD [facility] Quality care gaps: Health Maintenance Topic Date Due Annual Medicare Wellness Visit Never done Zoster Vaccines (3 of 3) 02/17/2024 (Originally 01/06/2023) RSV Immunization or 60+ Years (1 - 1-dose 60+ series) 02/17/2024 (Originally 2004) COVID-19 Vaccine ( season) 2112 (Originally 11/08/2023) Diabetes: Retinopathy Eye [...] test Chronic anticoagulation Coronary artery disease involving kaguyuk coronary artery of kaguyuk heart without angina pectoris H/O mechanical aortic valve replacement Hypertensive heart disease with congestive heart failure ([facility]) LBBB (left bundle branch block) Myopathy VAZQUEZ (obstructive sleep apnea) Paroxysmal atrial flutter ([facility]) Benign hypertension with CKD (chronic kidney disease) stage III ([facility]) Memory deficits Hearing deficit, bilateral History of cataract extraction, unspecified laterality Vitamin D deficiency Hypercalcemia Chronic frontal sinusitis Constipation, unspecified constipation type Chronic bilateral low back pain without sciatica Iron deficiency anemia, unspecified iron deficiency anemia type Disorder of skin of trunk Anemia Body mass index (BMI) 31.0-31.9, adult 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[facility]) Benign hypertension with stage 3b chronic kidney disease ([facility]) Cobalamin deficiency Compression fracture of thoracic vertebra ([facility]) Depression Diabetic polyneuropathy ([facility]) Disorder of rotator cuff Diverticular disease Dysphagia Elevated troponin Gastroesophageal reflux disease without esophagitis Hyperlipidemia, unspecified hyperlipidemia type Vascular dementia ([facility]) Unknown and unspecified causes of morbidity Syncope, unspecified syncope type Wrist joint pain Requires lifelong warfarin therapy Hyperparathyroidism ([facility]) Presence of prosthetic heart valve Plantar fascial fibromatosis Peripheral neuropathy Parathyroid adenoma Polymyalgia rheumatica ([facility]) Osteoporosis Numbness Muscle cramps Closed stable burst fracture of sixth thoracic vertebra, initial encounter ([facility]) Chest pain Contusion of scalp Knee pain Localized, primary osteoarthritis Osteoarthritis of knee Traumatic closed displaced fracture of distal end of radius Shoulder joint pain Hyperlipidemia associated with type 2 diabetes mellitus ([facility]) Hematoma Anxiety Diastolic heart failure ([facility]) Internal hemorrhoids Leukoencephalopathy Major depression single episode, in partial remission ([facility]) Metacarpal bone fracture Mitral valve disorder Peripheral arterial occlusive disease ([facility]) Primary osteoarthritis involving multiple joints Vision loss COPD (chronic obstructive pulmonary disease) ([facility]) Diarrhea Drug-induced constipation H/O mechanical aortic valve replacement Age-related osteoporosis with current pathological fracture Care Management Physical deconditioning Chronic heart failure with preserved ejection fraction (HFpEF) ([facility]) Paroxysmal atrial fibrillation ([facility]) Hypertension associated with type 2 diabetes mellitus ([facility]) Encounter for prophylactic measures, unspecified Graves' disease Cirrhosis of liver without ascites, unspecified hepatic cirrhosis type ([facility]) Stage 3b chronic kidney disease ([facility]) OLIVE (acute kidney injury) ([facility]) Heart failure with mildly reduced ejection fraction (HFmrEF) ([facility]) Hyperthyroidism Medications: Current Outpatient Medications Medication Sig [...] tablets (15 mg total) by mouth daily. denosumab (PROLIA) 60 MG/ML injection ferrous sulfate, 65 mg elemental, 325 (65 FE) MG tablet Take 1 tablet (325 mg total) by mouth dailywith breakfast. furosemide (LASIX) 20 MG tablet Take 1 tablet by mouth once daily 30 tablet 1 gabapentin (NEURONTIN) 300 MG capsule take 1 capsule by mouth three times daily 270 capsule 0 Glucose Blood (BLOOD GLUCOSE [...] tablet (6 mg total) by mouth daily. (Patient not taking: Reported on 12/21/2023) 90 tablet 0 No current facility-administered medications for this visit. Chronic Care Management- Time Spent with Patient Time spent with patient (minutes): 13 (Comment: Time spent with patient and [facility].) Time spent performing chart review (minutes): 7 Total time (minutes): 20 CASEY JOHNSON RN I reviewed the patient's status and education provided by CASEY JOHNSON RN. I agree with the findings and recommendations made. Cosigned by Sanjeev Webster DO at 12/23/2023 2:01 PM CDT documented in this encounter Plan of Treatment Upcoming Encounters Date Type Department Care Team (Late st Contact Info) Description 04/14/2024 2:00 PM INVESTMENT ASSOCIATE Office Visit [facility] Medical Group Multispecialty Care - [facility] 3 [facility], [address] [place] [phone] Julio Pulido MD [address] [place] [address] documented as of this encounter Goals Goal Patient Goal Type Associated Problems Recent Progress Patient-Stated? Author Health - patient able to perform ADLs independently General On track(2023 9:49 AM CDT) Casey Corona RN Note: 12/17/23: Patient stated she is independent with ASL's. Establish Plan for Symptom Monitoring-CHF General On track(2023 11:36 AM INVESTMENT ASSOCIATE) Casey Corona RN Note: Patient will recognize [...] Symptom Monitoring-COPD General On track(2023 11:36 AM INVESTMENT ASSOCIATE) Casey Corona RN Note: Patient will recognize [...] Symptom Monitoring-DM General On track(2023 4:33 PM INVESTMENT ASSOCIATE) Casey Corona RN Note: Patient will manage [...] Symptom Monitoring-HTN General On track(2023 4:33 PM INVESTMENT ASSOCIATE) Casey Corona RN Note: Patient will monitor [...] Chronic obstructive pulmonary disease, unspecified COPD type ([facility])- Primary Chronic heart failure with preserved ejection fraction (HFpEF) ([facility]) documented in this encounter Additional Health Concerns Assessment Noted Time PHQ-9 Depression Total Score: 13 023 3:56 PM CDT documented as of this encounter Care Teams Main Line Assembler Relationship Specialty Start Date End Date Luchtefeld, Sanjeev P, DO [address] [place] [address] PCP - General FAMILY PRACTICE 09/25/20 Casey Johnson, RN [address] [place] [address] Motor Teacher (Ambulatory) REGISTERED NURSE 08/14/20 documented as of this encounter
--- OUTSIDE RECORDS SUMMARY | 2024-03-15 00:48 | XMS_ITS | Encounter Summary ---
Author Organization [facility] Address [facility] [place] [address] [place] [address] Care Team Providers Care Menagerie Superintendent Name Role Phone Dianne Johnson RN Unavailable [phone] Sanjeev Webster DO Primary Care Provider + Reason for Visit * Reason Onset Date Comments Lab Results 12/18/2023 Encounter Details Date Type Department Care Team (Late st Contact Info) Description 12/18/2023 Telephone [facility] Medical Group Family & Internal Medicine [place] [id number] [place] [address] Sanjeev Webster DO [address] [place] [address] Lab Results Social History Tobacco Use Types Packs/Day [...] often do you attend chur ch or moravian services? More than 4 times per year 08/26/2022 Do you belong to any clubs o r organizations such as yazidi groups, unions, fraternal or athletic groups, or [...] Recorded Patient Health Questionnaire-2 Score 0 12/08/2023 [facility] of Occupat ional Health - [...] place to sleep or slept in a mcc (including now)? No 08/26/2022 Comments No Sex [...] documented in this encounter Progress Notes * Sallie Best MA - 12/18/2023 10:11 AM CDT Patient informed and v/u. All questions and concerns addressed. 12/18/2023 10:17 AM ----- Message from Dr. Sanjeev Webster sent at 12/14/2023 9:44 PM CDT ----- Labs are within acceptable limits and can be repeated at next office visit or sooner if needed. documented in this encounter Plan of Treatment Upcoming Encounters Date Type Department Care Team (Late st Contact Info) Description 04/14/2024 2:00 PM CERTIFIED PHYSICIAN'S ASSISTANT Office Visit [facility] Medical Group Multispecialty Care - [facility] [address] [facility], [address] [place] [phone] Julio Pulido MD [address] [place] [address] documented as of this encounter Goals Goal Patient Goal Type Associated Problems Recent Progress Patient-Stated? Author Health - patient able to perform ADLs independently General On track(2023 9:49 AM CDT) Dianne Corona RN Note: 12/17/23: Patient stated she is independent with ASL's. Establish Plan for Symptom Monitoring-CHF General On track(2023 11:36 AM CERTIFIED PHYSICIAN'S ASSISTANT) Dianne Corona RN Note: Patient will recognize [...] Monitoring-COPD General On track(2023 11:36 AM CERTIFIED PHYSICIAN'S ASSISTANT) Dianne Corona RN Note: Patient will recognize [...] Monitoring-DM General On track(2023 4:33 PM CERTIFIED PHYSICIAN'S ASSISTANT) Dianne Corona RN Note: Patient will manage [...] Monitoring-HTN General On track(2023 4:33 PM CERTIFIED PHYSICIAN'S ASSISTANT) No Dianne Johnson, RN Note: Patient will monitor B/P several [...] documented as of this encounter Care Teams Menagerie Superintendent Relationship Specialty Start Date End Date Sanjeev Webster DO [address] [place] [id number] PCP - General FAMILY PRACTICE 09/25/20 Dianne Johnson, RN [address] [place] [address] Field Automobile Adjuster (Ambulatory) REGISTERED NURSE 08/14/20 documented as of this encounter
--- OUTSIDE RECORDS SUMMARY | 2024-03-15 00:48 | XMS_ITS | Encounter Summary ---
Author Organization [facility] Address [facility] [place] [address] [place] [address] Care Team Providers Care Pm Head Cook Name Role Phone Dianne Johnson RN Unavailable [phone] Sanjeev Webster DO Primary Care Provider + Reason for Visit * Reason Comments Anticoagulation Encounter Details Date Type Department Care Team (Late st Contact Info) Description 01/04/2024 11:20 AM CDT Allied Health/Nurse Visit [facility] Family & Internal Medicine [id number] [place] [address] Sanjeev Webster DO [facility] [place] [address] Anticoagulation Social History Tobacco Use [...] often do you attend chur ch or gnosticism services? More than 4 times per year [...] Recorded Patient Health Questionnaire-2 Score 0 12/08/2023 [facility] [...] st Contact Info) Description 04/14/2024 2:00 PM QUALITY REVIEW SPECIALIST Office Visit [facility] Multispecialty Care - [facility] [address] [facility], [address] [place] [id number] Julio Pulido MD 3 [place] [address] documented as of this encounter Goals Goal Patient Goal Type Associated Problems Recent Progress Patient-Stated? Author Health - patient able to perform ADLs independently General On track(2023 9:49 AM CDT) Dianne Corona RN Note: 12/17/23: Patient stated she is independent with ASL's. Establish Plan for Symptom Monitoring-CHF General On track(2023 11:36 AM QUALITY REVIEW SPECIALIST) Dianne Corona RN Note: Patient will recognize [...] Symptom Monitoring-COPD General On track(2023 11:36 AM QUALITY REVIEW SPECIALIST) Dianne Corona RN Note: Patient will recognize [...] Symptom Monitoring-DM General On track(2023 4:33 PM QUALITY REVIEW SPECIALIST) Dianne Corona RN Note: Patient will manage [...] Symptom Monitoring-HTN General On track(2023 4:33 PM QUALITY REVIEW SPECIALIST) Dianne Corona RN Note: Patient will monitor [...] Date/Time Associated Diagnosis Comments COLLECT.CAPILLARY (FNGR,HEEL,EAR) Routine 01/04/2024 11:51 AM CDT half-way (current) use of anticoagulants PROTHROMBIN TIME, FINGERSTICK Routine 01/04/2024 half-way (current) use of anticoagulants documented in this encounter Results * PROTIME/INR, FINGERSTICK (01/04/2024) INR WHOLE BLOOD 1.90 MG-S [facility] 01/04/2024 us Sanjeev Webster DO LABORATORY Final Re sult [facility] [address] [place] [address], documented in this encounter Visit Diagnoses Diagnosis rn long term care (current) use of anticoagulants- Primary Long-term (current) use of anticoagulants documented in this encounter Additional Health Concerns Assessment Noted Time PHQ-9 Depression Total Score: 13 023 3:56 PM CDT documented as of this encounter Care Teams Pm Head Cook Relationship Specialty Start Date End Date Sanjeev Webster DO [address] [place] [address] PCP - General FAMILY PRACTICE 09/25/20 Dianne Johnson, RN [address] [place] [address] Animal Maintenance Supervisor (Ambulatory) REGISTERED NURSE 08/14/20 documented as of this encounter
--- OUTSIDE RECORDS SUMMARY | 2024-03-15 00:48 | XMS_ITS | Encounter Summary ---
Author Organization [facility] Address [facility]. [place], [place] [address] [place] [address] Care Team Providers Care Plate Embosser Name Role Phone Dianne Johnson RN Unavailable [phone] Sanjeev Webster DO Primary Care Provider + Reason for Visit * Reason Onset Date Comments Information 12/28/2023 Encounter Details Date Type Department Care Team (Late st Contact Info) Description 12/28/2023 Telephone [facility] Medical Group Family & Internal Medicine [address] [place] [address] Sanjeev Webster DO [address] [place] [address] Information Social History Tobacco Use [...] How often do you attend chur or episcopalian services? More than 4 times per year [...] Recorded Patient Health Questionnaire-2 Score 0 12/08/2023 [facility] ional Health - [...] Progress Notes * Yenifer Ingram MA - 12/28/2023 11:19 AM CDT Report sent electronically * Lola Eli - 12/28/2023 9:30 AM CDT Ext 9 [facility] surgery called in for copy of pts CT of abdomen to review. Please fax to [phone]. documented in this encounter Plan of Treatment Upcoming Encounters Date Type Department Care Team (Late st Contact Info) Description 04/14/2024 2:00 PM MANAGER COLLEGE Office Visit [facility] Medical Group Multispecialty Care - [address], [address] [place] [address] Julio Pulido MD [address] [place] [address] documented as of this encounter Goals Goal Patient Goal Type Associated Problems Recent Progress Patient-Stated? Author Health - patient able to perform ADLs independently General On track(2023 9:49 AM CDT) Dianne Corona, RN Note: 12/17/23: Patient stated she is independent with ASL's. Establish Plan for Symptom Monitoring-CHF General On track(2023 11:36 AM MANAGER COLLEGE) No Dianne Johnson RN Note: Patient will [...] Symptom Monitoring-COPD General On track(2023 11:36 AM MANAGER COLLEGE) Dianne Corona RN Note: Patient will recognize [...] Symptom Monitoring-DM General On track(2023 4:33 PM MANAGER COLLEGE) Dianne Corona RN Note: Patient will manage [...] Symptom Monitoring-HTN General On track(2023 4:33 PM MANAGER COLLEGE) No Johnson, Dianne R, RN Note: Patient [...] documented as of this encounter Care Teams Plate Embosser Relationship Specialty Start Date End Date Sanjeev Webster DO [address] [place] [id number] PCP - General FAMILY PRACTICE 09/25/20 Dianne Johnson, RN [address] [place] [address] Cloth Shearing Supervisor (Ambulatory) REGISTERED NURSE 08/14/20 documented as of this encounter
--- OUTSIDE RECORDS SUMMARY | 2024-03-15 00:48 | XMS_ITS | Encounter Summary ---
Author Organization [facility] Address [facility]6 [facility] [place] [address] [place] [address] Care Team Providers Care Atlassian Administrator Name Role Phone Dianne Johnson RN Unavailable [phone] Sanjeev Webster DO Primary Care Provider + Encounter Details Date Type Department Care Team (Latest Contact Info) Description 01/08/2024 Travel Social History Tobacco Use Types Packs/Day [...] How often do you attend chur or caodaism services? More than 4 times per year 08/26/2022 Do you belong to any clubs o r organizations such as restoration groups, unions, fraternal or athletic groups, or [...] st Contact Info) Description 04/14/2024 2:00 PM SANDWICH COUNTER ATTENDANT Office Visit [facility] Group Multispecialty Care - [facility] [address] [facility], [address] [place] [address] Julio Pulido MD [address] [place] [address] documented as of this encounter Goals Goal Patient Goal Type Associated Problems Recent Progress Patient-Stated? Author Health - patient able to perform ADLs independently General On track(2023 9:49 AM CDT) Dianne Corona RN Note: 12/17/23: Patient stated she is independent with ASL's. Establish Plan for Symptom Monitoring-CHF General On track(2023 11:36 AM SANDWICH COUNTER ATTENDANT) Dianne Corona RN Note: Patient will recognize [...] Symptom Monitoring-COPD General On track(2023 11:36 AM SANDWICH COUNTER ATTENDANT) Dianne Corona RN Note: Patient will recognize [...] Symptom Monitoring-DM General On track(2023 4:33 PM SANDWICH COUNTER ATTENDANT) Dianne Corona RN Note: Patient will manage [...] Symptom Monitoring-HTN General On track(2023 4:33 PM SANDWICH COUNTER ATTENDANT) Dianne Corona, RN Note: Patient will monitor [...] filedocumented in this encounter Additional Health Concerns Infection Onset Date Last Indicated Resolved Time COVID-19 Rule Out 01/08/2024 01/08/2024 01/08/2024 1:05 PM CDT Assessment Noted Time PHQ-9 Depression Total Score: 13 023 3:56 PM CDT documented as of this encounter Care Teams Atlassian Administrator Relationship Specialty Start Date End Date Sanjeev Webster DO [address] [place] [address] PCP - General FAMILY PRACTICE 09/25/20 Dianne Johnson RN [facility] [place] [address] Perfume And Toilet Water Maker (Ambulatory) REGISTERED NURSE 08/14/20 documented as of this encounter
--- OUTSIDE RECORDS SUMMARY | 2024-03-15 00:48 | XMS_ITS | Encounter Summary ---
Author Organization [facility] Address [facility]6 [facility] [place] [address] [place] [address] Care Team Providers Care Park Recreation Manager Name Role Phone Dianne Johnson RN Unavailable [phone] Sanjeev Webster DO Primary Care Provider + Encounter Details Date Type Department Care Team (Latest Contact Info) Description 12/24/2023 Scan HEALTH INFO SRVCS Scanned, Doc Med [...] often do you attend chur ch or jain services? More than 4 times per year 08/26/2022 Do you belong to any clubs o r organizations such as yazidism groups, unions, fraternal or athletic groups, or [...] Recorded Patient Health Questionnaire-2 Score 0 12/08/2023 [facility] Occupat ional Health - Occupational [...] st Contact Info) Description 04/14/2024 2:00 PM TUB OPERATOR Office Visit [facility] Group Multispecialty Care - [facility] [address] [facility], [address] [place] [address] Julio Pulido MD 3 [place] [address] documented as of this encounter Goals Goal Patient Goal Type Associated Problems Recent Progress Patient-Stated? Author Health - patient able to perform ADLs independently General On track(2023 9:49 AM CDT) Dianne Corona RN Note: 12/17/23: Patient stated she is independent with ASL's. Establish Plan for Symptom Monitoring-CHF General On track(2023 11:36 AM TUB OPERATOR) Dianne Corona RN Note: Patient will [...] Symptom Monitoring-COPD General On track(2023 11:36 AM TUB OPERATOR) Dianne Corona RN Note: Patient will [...] Symptom Monitoring-DM General On track(2023 4:33 PM TUB OPERATOR) Dianne Corona, RN Note: Patient will [...] Symptom Monitoring-HTN General On track(2023 4:33 PM TUB OPERATOR) Dianne Corona, RN Note: Patient will [...] documented as of this encounter Care Teams Park Recreation Manager Relationship Specialty Start Date End Date Sanjeev Webster DO [address] [place] [address] PCP - General FAMILY PRACTICE 09/25/20 Dianne Johnson, RN [address] [place] [address] It Infrastructure Engineer (Ambulatory) REGISTERED NURSE 08/14/20 documented as of this encounter
--- OUTSIDE RECORDS SUMMARY | 2024-03-15 00:48 | XMS_ITS | Encounter Summary ---
Author Organization [facility] Address [facility]6 [facility]. [place], [place] [address] [place] [address] Care Team Providers Care Mold Washer Name Role Phone Dianne Johnson RN Unavailable [phone] Sanjeev Webster DO Primary Care Provider + Reason for Visit * Reason Onset Date Comments Medication 12/31/2023 Encounter Details Date Type Department Care Team (Late st Contact Info) Description 12/31/2023 Telephone [facility] Medical Group Family & Internal Medicine [id number] [place] [address] Sanjeev Webster DO [address] [place] [address] Medication Social History Tobacco Use Types Packs/Day Years [...] any clubs o r organizations such as caodaism groups, unions, fraternal or athletic groups, or [...] Patient Health Questionnaire-2 Score 0 12/08/2023 [facility] Occupat ional Health - [...] 7:46 PM [place] aCll RN Active * Do you have serious [...] Progress Notes * Yenifer Ingram MA - 12/31/2023 9:54 AM CDT Spoke with patient and let jorge know her medication from [facility] is ready for p/u. On top self of refrigerator and order has been scanned. documented in this encounter Plan of Treatment Upcoming Encounters Date Type Department Care Team (Late st Contact Info) Description 04/14/2024 2:00 PM STRUCTURAL ARCHITECT Office Visit [facility] Medical Group Multispecialty Care - [facility] [address] [facility], [address] [place] [address] Julio Pulido MD [address] [place] [address] documented as of this encounter Goals Goal Patient Goal Type Associated Problems Recent Progress Patient-Stated? Author Health - patient able to perform ADLs independently General On track(2023 9:49 AM CDT) No Dianne Johnson RN Note: 12/17/23: Patient stated she is independent with ASL's. Establish Plan for Symptom Monitoring-CHF General On track(2023 11:36 AM STRUCTURAL ARCHITECT) Dianne Corona RN Note: Patient will recognize [...] Symptom Monitoring-COPD General On track(2023 11:36 AM STRUCTURAL ARCHITECT) Dianne Corona RN Note: Patient will recognize [...] Symptom Monitoring-DM General On track(2023 4:33 PM STRUCTURAL ARCHITECT) Dianne Corona, RN Note: Patient will manage [...] Symptom Monitoring-HTN General On track(2023 4:33 PM STRUCTURAL ARCHITECT) Dianne Corona RN Note: Patient will monitor [...] documented as of this encounter Care Teams Mold Washer Relationship Specialty Start Date End Date Sanjeev Webster DO [address] [place] [address] PCP - General FAMILY PRACTICE 09/25/20 Dianne Johnson, RN [address] [place], [place] [address] Radiology Therapist (Ambulatory) REGISTERED NURSE 08/14/20 documented as of this encounter
--- OUTSIDE RECORDS SUMMARY | 2024-03-15 00:48 | XMS_ITS | Encounter Summary ---
Author Organization [facility] Address [facility] [place] [address] [place] [address] Care Team Providers Care Shield Cleaner Name Role Phone Dianne Johnson RN Unavailable [phone] Sanjeev Webster DO Primary Care Provider + Reason for Referral * Consultation/Treatment (Routine) - Authorized Specialty Diagnoses / Procedures Referred By Ian malagon Referred To Contact GENERAL SURGERY Diagnoses Colonic fistula Procedures OFFICE/OUTPATIENT NEW LOW MDM 30-44 MINUTES OFFICE/OUTPT VISIT,NEW,LEVL IV OFFICE/OUTPT VISIT,NEW,LEVL V OFFICE/OUTPT VISIT,EST,LEVL III OFFICE/OUTPT VISIT,EST,LEVL IV OFFICE/OUTPT VISIT,EST,LEVL V Sanjeev Webster DO [address] [place] [address] Phone: tel: fax: [facility] - General Surgery [address] [place] [address] [address] Phone: tel: fax: Referral ID Status Reason Start Date Expiration Date V isits Requested Visits Authorized [id number] Authorized 12/24/2023 07/06/2024 6 6 Reason for Visit * Reason Comments TCM Admitted at [place] for Rt foot Gout. 12/12/23-12/16/2023Warfarin decreased to 5mg qd. Encounter Details Date Type Department Care Team (Late st Contact Info) Description 12/21/2023 10:40 AM CDT Office Visit [facility] [address] [place] [address] Flory Webstertania LeonDO [address] [place] [address] TCM (Admitted at [place] for Rt foot Gout. /12/12/23-12/16/2023/ Warfarin decreased to 5mg qd. ) Social History Tobacco Use Types Packs/Day [...] any clubs o r organizations such as quaker groups, unions, fraternal or athletic groups, or [...] Recorded Patient Health Questionnaire-2 Score 0 12/08/2023 [facility] - Occupational [...] Sign Reading Time Taken Comments Blood Pressure 138/64 12/21/2023 10:47 AM CDT Pulse 87 12/21/2023 10:47 AM CDT Temperature 36.2 ??C (97.2 ??F) 12/21/2023 10:47 AM C DT Respiratory Rate 16 12/21/2023 10:47 AM CDT Oxygen Saturation 97% 12/21/2023 10:47 AM CDT Inhaled Oxygen Concentration - - Weight 81.4 kg (179 lb 8 oz) 12/21/2023 10:47 AM CDT Height 165.1 cm (5' 5 ) 12/21/2023 10:47 AM CDT Body Mass Index 29.87 12/21/2023 10:47 AM CDT documented in this encounter Functional Status * Are you deaf or do you have serious difficulty hearing Answer Date of Assessment Author Status No 08/26/2022 7:46 PM CDT [place] Gunderson RN Active * Are you blind or do you have serious difficulty seeing, even when wearing glasses? Answer Date of Assessment Author Status No 08/26/2022 7:46 PM CDT [place] Gunderson RN Active * Do you have serious difficulty walking or climbing stairs? Answer Date of Assessment Author Status Yes 08/26/2022 7:46 PM DARRYLT [place] Gunderson RN Active * Do you have difficulty dressing or bathing? Answer Date of Assessment Author Status No 08/26/2022 7:46 PM DARRYLT [place] Gunderson RN Active * Because of a physical, [...] this encounter Progress Notes * Sanjeev Webster, - 12/21/2023 10:40 AM CDT Images from the original note were not included. GENERAL OFFICE VISIT Encounter Date: 12/21/2023 Chief Complaint: 78-year-old female presents for TCM (Admitted at [place] for Rt foot Gout. /12/12/23-12/16/2023/Warfarin decreased to 5mg qd. ) History of Present Illness: Transitional Care Note: Pt was admitted on: 12/13/23 Pt was discharged on: 12/16/23 Admit Diagnosis: Acute gout, right foot Discharge Diagnosis: Same as above Initial Nursing contact: See telephone encounter on: 12/17/23 Discharge note from Tad Weathers MD was reviewed Per their summary: Hospital Course: 78-year-old female with past medical history significant for atrial fibrillation, anticoagulated, rate controlled, chronic kidney disease, hypertension, COPD/asthma, depression with anxiety, obstructive sleep apnea on CPAP at nighttime, type diabetes mellitus. Patient presents to the emergency roomdue to 3-4 days of right foot pain which is localized to the medial aspect of the ankle unable to bear weight on it extremely painful to touch patient has had ankle-brachial Dopplers as well as CT angiogram which do not show occlusion. Patient denies any fevers, rigors, chills, nausea, vomiting, diarrhea however has been unable to ambulate due to pain. Patient has been placed in observationfor further evaluation management and treatment. While in the hospital the patient also had x-rays of her right ankle and foot no acute fractures identified. Patient was started on prednisone for new diagnosis of gout, with improvement in pain symptoms. She was also found to be Super therapeutic on her warfarin dose with her INR being 3.7 on admission withher goal being 2.5-3.5. On 12/15/2023 patient was restarted on 5 mg of warfarin with recommendations to follow-up with her PCP in 1 week for management. Patient was seen by PT and OT with recommendations for walker and outpatient therapy. Patient states that due to the co-pay she is declining therapy at thistime. Patient states that she has a neighbor and a sister that can help her out to check on her. Hospital course was uneventful. Patient will be discharged on prednisone taper and meloxicam. Since Discharge: Radha has been doing better. Her foot pain is improving although still present.No uric acid appears to have been drawn during hospital stay. Pt is needing a walker. She is a fallrisk, especially with the foot pain. 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 This does not appear to have been addressed at her hospital stay. No abdominal pain, but does have constipation at times. ROS: Review of Systems Constitutional: Negative for fever. Respiratory: Negative for shortness of breath. Gastrointestinal: See HPI Musculoskeletal: See HPI Medications: Current Outpatient Medications: acetaminophen (TYLENOL) 500 MG tablet, Take 1 tablet (500 mg total) by mouth daily as needed. No more then 2500 mg per day., Disp: , Rfl: albuterol sulfate HFA 108 (90 Base) MCG/ACT inhaler, INHALE 2 PUFFS BY MOUTH EVERY 6 HOURS NEEDED FOR WHEEZING, Disp: 18 g, Rfl: 5 alendronate (FOSAMAX) 35 MG tablet, Take 1 tablet (35 mg total) by mouth every 7 days., Disp: , Rfl: ALPRAZolam (XANAX) 0.5 MG tablet, TAKE 1/2 (ONE-HALF) TABLET BY MOUTH NIGHTLY NEEDED FOR SLEEP, Disp: 15 tablet, Rfl: 0 B Complex Cap capsule, Take 1 capsule by mouth daily., Disp: , Rfl: Blood Glucose Monitoring Suppl (ONE TOUCH ULTRA 2) w/Device Kit, 1 Device by Does not apply route daily., Disp: 1 kit, Rfl: 0 Cholecalciferol (VITAMIN D3) 25 MCG (1000 UT) Cap, Take 1 capsule (1,000 Units total) by mouth daily., Disp: , Rfl: cinacalcet (SENSIPAR) 30 MG tablet, Take 0.5 tablets (15 mg total) by mouth daily., Disp: , Rfl: denosumab (PROLIA) 60 MG/ML injection, , Disp: , Rfl: ferrous sulfate, 65 mg elemental, 325 (65 FE) MG tablet, Take 1 tablet (325 mg total) by mouth daily with breakfast., Disp: , Rfl: furosemide (LASIX) 20 MG tablet, Take 1 tablet by mouth once daily, Disp: 30 tablet, Rfl: 1 gabapentin (NEURONTIN) 300 MG capsule, take 1 capsule by mouth three times daily, Disp: 270 capsule, Rfl: 0 Glucose Blood (BLOOD GLUCOSE TEST STRIPS) Strip, 1 Device by Does not apply route daily., Disp: 100strip, Rfl: 3 HYDROcodone-acetaminophen (NORCO) 5-325 MG tablet, Take 1-2 tablets by mouth every 6 (six) hours asneeded for Pain. Indications: Chronic Pain, Disp: 60 tablet, Rfl: 0 Lancets (ONETOUCH ULTRASOFT) lancets, 1 each by Other route as needed. Use as instructed, Disp: 100each, Rfl: 3 methIMAzole (TAPAZOLE) 5 MG tablet, Take 1 tablet (5 mg total) by mouth daily., Disp: , Rfl: metoprolol succinate ER (TOPROL-XL) 25 MG 24 hr tablet, Take 1 tablet (25 mg total) by mouth daily., Disp: 90 tablet, Rfl: 0 omeprazole (PRILOSEC) 40 MG capsule, Take 1 capsule by mouth once daily, Disp: 90 capsule, Rfl: 0 potassium chloride CR (K-TAB) 10 MEQ Tab CR tablet, Take 1 tablet by mouth once daily, Disp: 90 tablet, Rfl: 1 predniSONE (DELTASONE) 10 mg tablet, Taper prednisone from 50 mg; 15 days 40 mg daily for 3 days 40mg daily for 3 days 30 mg daily for 3 days 20 mg daily for 3 days 10 mg daily for 3 days, Disp: , Rfl: Semaglutide (OZEMPIC, 0.25 OR 0.5 MG/DOSE, SC), Inject 0.5 mg into the skin once a week., Disp: , Rfl: simvastatin (ZOCOR) 10 MG tablet, Take 1 tablet (10 mg total) by mouth nightly at bedtime., Disp: 90 tablet, Rfl: 3 venlafaxine XR (EFFEXOR-XR) 150 MG 24 hr capsule, Take 1 capsule by mouth once daily, Disp: 90 capsule, Rfl: 0 vitamin B-12 (CYANOCOBALAMIN) (CYANOCOBALAMIN) 1000 mcg tablet, Take 1 tablet (1,000 mcg total) by mouth daily., Disp: , Rfl: warfarin (COUMADIN) 1 MG tablet, Take 1 tablet (1 mg total) by mouth daily., Disp: 30 tablet, Rfl: 0 warfarin (COUMADIN) 2 MG tablet, Take 1 tablet (2 mg total) by mouth daily., Disp: 30 tablet, Rfl: 1 warfarin (COUMADIN) 5 MG tablet, Take 1 tablet by mouth once daily, Disp: 30 tablet, Rfl: 1 warfarin (COUMADIN) 6 MG tablet, Take 1 tablet (6 mg total) by mouth daily. (Patient not taking: Reported on 12/21/2023), Disp: 90 tablet, Rfl: 0 Current Outpatient Medications on File Prior to Visit Medication Sig acetaminophen (TYLENOL) 500 MG tablet Take 1 tablet (500 mg total) by mouth daily as needed. No more then 2500 mg per day. albuterol sulfate HFA 108 (90 Base) MCG/ACT inhaler INHALE 2 PUFFS BY MOUTH EVERY 6 HOURS NEEDEDFOR WHEEZING alendronate (FOSAMAX) 35 MG tablet Take 1 tablet (35 mg total) by mouth every 7 days. ALPRAZolam (XANAX) 0.5 MG tablet TAKE 1/2 (ONE-HALF) TABLET BY MOUTH NIGHTLY NEEDED FOR SLEEP B Complex Cap capsule Take 1 capsule by mouth daily. Blood Glucose Monitoring Suppl (ONE TOUCH ULTRA 2) w/Device Kit 1 Device by Does not apply route daily. Cholecalciferol (VITAMIN D3) 25 MCG (1000 UT) [...] Take 1 tablet by mouth once daily gabapentin (NEURONTIN) 300 MG capsule take 1 capsule by mouth three times daily Glucose Blood (BLOOD GLUCOSE TEST STRIPS) Strip 1 Device by Does not apply route daily. HYDROcodone-acetaminophen (NORCO) 5-325 MG tablet Take 1-2 tablets by mouth every 6 (six) hours as needed for Pain. Indications: Chronic Pain Lancets (ONETOUCH ULTRASOFT) lancets 1 each by Other route as needed. Use as instructed methIMAzole (TAPAZOLE) 5 MG tablet Take 1 tablet (5 mg total) by mouth daily. metoprolol succinate ER (TOPROL-XL) 25 MG 24 hr tablet Take 1 tablet (25 mg total) by mouth daily. omeprazole (PRILOSEC) 40 MG capsule Take 1 capsule by mouth once daily potassium chloride CR (K-TAB) 10 MEQ Tab CR tablet Take 1 tablet by mouth once daily predniSONE (DELTASONE) 10 mg tablet Taper prednisone [...] mg total) by mouth nightly at bedtime. venlafaxine XR (EFFEXOR-XR) 150 MG 24 hr capsule Take 1 capsule by mouth once daily vitamin B-12 (CYANOCOBALAMIN) (CYANOCOBALAMIN) 1000 mcg tablet Take 1 tablet (1,000 mcg total) by mouth daily. warfarin (COUMADIN) 1 MG tablet Take 1 tablet (1 mg total) by mouth daily. warfarin (COUMADIN) 2 MG tablet Take 1 tablet (2 mg total) by mouth daily. warfarin (COUMADIN) 5 MG tablet Take 1 tablet by mouth once daily warfarin (COUMADIN) 6 MG tablet Take 1 tablet (6 mg total) by mouth daily. (Patient not taking: Reported on 12/21/2023) No current facility-administered medications on file prior to visit. Review of patient's allergies indicates: Allergen [...] Polymyxin B Other (see comment) and Rash Patient Active Problem List Diagnosis Abnormal stress test Chronic anticoagulation Coronary artery disease involving [place] coronary artery of [place] heart without angina pectoris H/O mechanical aortic valve replacement Hypertensive heart disease with congestive heart failure ([facility]) LBBB (left bundle branch block) Myopathy VAZQUEZ (obstructive sleep apnea) Paroxysmal atrial flutter ([facility]) Benign hypertension with CKD (chronic kidney disease) stage III ([facility]) Memory deficits Hearing deficit, bilateral History of cataract extraction, unspecified laterality Vitamin D deficiency Hypercalcemia Chronic frontal sinusitis Constipation, unspecified constipation type Chronic bilateral low back pain without sciatica Iron deficiency anemia, unspecified iron deficiency anemia type Disorder of skin of trunk Anemia Body mass index (BMI) 31.0-31.9, adult 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[facility]) Benign hypertension with stage 3b chronic kidney disease ([facility]) Cobalamin deficiency Compression fracture of thoracic vertebra ([facility]) Depression Diabetic polyneuropathy ([facility]) Disorder of rotator cuff Diverticular disease Dysphagia Elevated troponin Gastroesophageal reflux disease without esophagitis Hyperlipidemia, unspecified hyperlipidemia type Vascular dementia ([facility]) Unknown and unspecified causes of morbidity Syncope, unspecified syncope type Wrist joint pain Requires lifelong warfarin therapy Hyperparathyroidism ([facility]) Presence of prosthetic heart valve Plantar fascial fibromatosis Peripheral neuropathy Parathyroid adenoma Polymyalgia rheumatica ([facility]) Osteoporosis Numbness Muscle cramps Closed stable burst fracture of sixth thoracic vertebra, initial encounter ([facility]) Chest pain Contusion of scalp Knee pain Localized, primary osteoarthritis Osteoarthritis of knee Traumatic closed displaced fracture of distal end of radius Shoulder joint pain Hyperlipidemia associated with type 2 diabetes mellitus ([facility]) Hematoma Anxiety Diastolic heart failure ([facility]) Internal hemorrhoids Leukoencephalopathy Major depression single episode, in partial remission ([facility]) Metacarpal bone fracture Mitral valve disorder Peripheral arterial occlusive disease ([facility]) Primary osteoarthritis involving multiple joints Vision loss COPD (chronic obstructive pulmonary disease) ([facility]) Diarrhea Drug-induced constipation H/O mechanical aortic valve replacement Age-related osteoporosis with current pathological fracture Care Management Physical deconditioning Chronic heart failure with preserved ejection fraction (HFpEF) ([facility]) Paroxysmal atrial fibrillation ([facility]) Hypertension associated with type 2 diabetes mellitus ([facility]) Encounter for prophylactic measures, unspecified Graves' disease Cirrhosis of liver without ascites, unspecified hepatic cirrhosis type ([facility]) Stage 3b chronic kidney disease ([facility]) OLIVE (acute kidney injury) ([facility]) Heart failure with mildly reduced ejection fraction (HFmrEF) ([facility]) Hyperthyroidism 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 Anxiety Atrial fibrillation with rapid ventricular response ([facility]) 08/22/2020 Atrial flutter ([facility]) Cataract Chronic anticoagulation due to mechanical heart valve Chronic pain Diabetes mellitus ([facility]) Gout, unspecified right foot H/O mechanical aortic valve replacement 2003 Hypertension Kidney stone 02/03/2017 On amiodarone therapy 05/21/2021 Past Surgical History: Procedure Laterality Date REPAIR HEART WOUND Social History Socioeconomic History Marital status: Number of children: 4 Tobacco Use Smoking status: Never Passive exposure: Past Smokeless tobacco: Never Tobacco comments: non smoker Vaping Use Vaping status: Never Used Substance and Sexual Activity Alcohol use: Not Currently Drug use: Yes Types: Hydrocodone Comment: chronic pain Other Topics Concern Exercise No Special Diet No Caffeine Concern Yes Social Drivers of Health Financial Resource Strain: High Risk (08/26/2022) Overall Financial Resource Strain (CARDIA) Difficulty of Paying Living Expenses: Hard Food Insecurity: No Food Insecurity (08/26/2022) Hunger Vital Sign Worried About Running Out of Food in the Last Year: Never true Ran Out of Food in the Last Year: Never true Transportation Needs: No Transportation Needs (08/26/2022) PRAPARE - Transportation Lack of Transportation (Medical): No Lack of Transportation (Non-Medical): No Physical Activity: Insufficiently Active (08/26/2022) Exercise Vital Sign Days of Exercise per Week: 1 day Minutes of Exercise per Session: 10 min Stress: Stress Concern Present (08/26/2022) [employer] [facility] [facility] - Occupational Stress Questionnaire Feeling of Stress : To some extent Social Connections: Moderately Isolated (08/26/2022) Social Connection and Isolation Panel [NHANES] Frequency of Communication with Friends and Family: Three times a week Frequency of Social Gatherings with Friends and Family: Three times a week Attends Shinto Services: More than 4 times per year Active Member of Clubs or Organizations: No Attends Club or Organization Meetings: Never Marital Status: Intimate Partner Violence: Not At Risk (08/26/2022) Humiliation, Afraid, Rape, and Kick questionnaire Fear of Current or Ex-Partner: No Emotionally Abused: No Physically Abused: No Sexually Abused: No Housing Stability: Low Risk (08/26/2022) Housing Stability Vital Sign Unable to Pay for Housing in the Last Year: No Number of Places Lived in the Last Year: 1 Unstable Housing in the Last Year: No Family History Problem Relation Name Age of Onset Heart Father Diabetes Father Heart Mother Family Status Relation Name Status Father Mother No partnership data on file Objective: Filed Vitals: 12/21/23 1047 BP: 138/64 Pulse: 87 Resp: 16 Temp: 97.2 ??F (36.2 ??C) TempSrc: Skin SpO2: 97% Weight: 81.4 kg (179 lb 8 oz) Height: 1.651 m (5' 5 ) Physical Exam Vitals and nursing note reviewed. Constitutional: Appearance: She is well-developed. HENT: Head: Normocephalic and atraumatic. Right Ear: External ear normal. Left Ear: External ear normal. Eyes: Conjunctiva/sclera: Conjunctivae normal. Cardiovascular: Rate and Rhythm: Normal rate and regular rhythm. Heart sounds: Normal heart sounds. No murmur heard. No friction rub. No gallop. Pulmonary: Effort: Pulmonary effort is normal. Breath sounds: Normal breath sounds. Abdominal: Palpations: Abdomen is soft. Tenderness: There is no abdominal tenderness. Musculoskeletal: Cervical back: Neck supple. Skin: General: Skin is warm and dry. Neurological: General: No focal deficit present. Mental Status: She is alert. Assessment & Plan: Radha was seen today for tcm. Diagnoses and all orders for this visit: Acute gout of right foot, unspecified cause watermaster (current) use of anticoagulants - PROTIME/INR, FINGERSTICK - COLLECT.CAPILLARY (FNGR,HEEL,EAR) H/O mechanical aortic valve replacement - PROTIME/INR, FINGERSTICK - COLLECT.CAPILLARY (FNGR,HEEL,EAR) Colonic fistula Discussion & Summary: 1. Medications/DME - Continue current medications. 2. Lab/Diagnostics - See orders. 3. Education - Current treatment discussed and patient education given as appropriate. 4. Referrals - Specialist referral: Colorectal surgeon Dr. Guevara. 5. RTC - 2 month(s) Sanjeev Webster DO documented in this encounter Plan of Treatment Upcoming Encounters Date Type Department Care Team (Late st Contact Info) Description 04/14/2024 2:00 PM MANAGER BEAUTY Office Visit [facility] - [facility] [address], [address] [place] [address] Julio Pulido MD [address] [place] [address] Scheduled Referrals Name Type Priority Associated Diagnoses Orde r Schedule Ambulatory referral to General Surgery (OTHER) Referral Routine Colonic fistula Ordered: 12/21/2023 documented as of this encounter Goals Goal Patient Goal Type Associated Problems Recent Progress Patient-Stated? Author Health - patient able to perform ADLs independently General On track(2023 9:49 AM CDT) Dianne Corona, RN Note: 12/17/23: Patient stated she is independent with ASL's. Establish Plan for Symptom Monitoring-CHF General On track(2023 11:36 AM MANAGER BEAUTY) Dianne Corona, RN Note: Patient will recognize [...] Monitoring-COPD General On track(2023 11:36 AM MANAGER BEAUTY) Dianne Corona, RN Note: Patient will recognize [...] Monitoring-DM General On track(2023 4:33 PM MANAGER BEAUTY) Dianne Corona RN Note: Patient will manage [...] Monitoring-HTN General On track(2023 4:33 PM MANAGER BEAUTY) Dianne Corona RN Note: Patient will monitor [...] Date/Time Associated Diagnosis Comments COLLECT.CAPILLARY (FNGR,HEEL,EAR) Routine 12/21/2023 11:15 AM CDT watermaster (current) use of anticoagulants H/O mechanical aortic valve replacement PROTHROMBIN TIME, FINGERSTICK Routine 12/21/2023 longterm (current) use of anticoagulants H/O mechanical aortic valve replacement documented in this encounter Results * PROTIME/INR, FINGERSTICK (12/21/2023) PROTIME WHOLE BLOOD 2.5 [facility] 12/21/2023 us Sanjeev Webster DO LABORATORY Final Re sult [facility] [address] [place] [address], documented in this encounter Visit Diagnoses Diagnosis Acute gout of right foot, unspecified cause- Primary watermaster (current) use of anticoagulants Long-term (current) use of anticoagulants H/O mechanical aortic valve replacement Heart valve replaced by other means Colonic fistula Fistula of intestine, excluding rectum and anus documented in this encounter Additional Health Concerns Assessment Noted Time PHQ-9 Depression Total Score: 13 023 3:56 PM CDT documented as of this encounter Care Teams Shield Cleaner Relationship Specialty Start Date End Date Sanjeev Webster DO [address] [place] [id number] PCP - General FAMILY PRACTICE 09/25/20 Dianne Johnson, RN [address] [place] [address] Lens Cutter (Ambulatory) REGISTERED NURSE 08/14/20 documented as of this encounter
--- OUTSIDE RECORDS SUMMARY | 2024-03-15 00:48 | XMS_ITS | Encounter Summary ---
Author Organization [facility] Address [facility]6 [facility] [place] [address] [place] [address] Care Team Providers Care Long Distance Billing Operator Name Role Phone Dianne Johnson RN Unavailable [phone] Sanjeev Webster DO Primary Care Provider + Encounter Details Date Type Department Care Team (Latest Contact Info) Description 01/15/2024 Travel Social History Tobacco Use Types Packs/Day [...] How often do you attend chur or voodoo services? More than 4 times per year 08/26/2022 Do you belong to any clubs o r organizations such as restorationism groups, unions, fraternal or athletic groups, or [...] Recorded Patient Health Questionnaire-2 Score 0 12/08/2023 [facility] of Occupat ional Health - Occupational Stress [...] st Contact Info) Description 04/14/2024 2:00 PM SYSTEMS ENG Office Visit [facility] Multispecialty Care - [facility] 3 [facility], [address] [place] [address] Julio Pulido MD 3 [place] [address] documented as of this encounter Goals Goal Patient Goal Type Associated Problems Recent Progress Patient-Stated? Author Health - patient able to perform ADLs independently General On track(2023 9:49 AM CDT) Dianne Corona RN Note: 12/17/23: Patient stated she is independent with ASL's. Establish Plan for Symptom Monitoring-CHF General On track(2023 11:36 AM SYSTEMS ENG) Dianne Corona RN Note: Patient will recognize [...] Symptom Monitoring-COPD General On track(2023 11:36 AM SYSTEMS ENG) Dianne Corona RN Note: Patient will recognize [...] Symptom Monitoring-DM General On track(2023 4:33 PM SYSTEMS ENG) Dianne Corona RN Note: Patient will manage [...] Symptom Monitoring-HTN General On track(2023 4:33 PM SYSTEMS ENG) Dianne Corona, RN Note: Patient will monitor [...] documented as of this encounter Care Teams Long Distance Billing Operator Relationship Specialty Start Date End Date Sanjeev Webster DO [address] [place] [address] PCP - General FAMILY PRACTICE 09/25/20 Dianne Johnson, RN [address] [place] [address] Bass Guitar Teacher (Ambulatory) REGISTERED NURSE 08/14/20 documented as of this encounter
--- OUTSIDE RECORDS SUMMARY | 2024-03-15 00:48 | XMS_ITS | Encounter Summary ---
Author Organization [facility] Address [facility]6 [facility]. [place], [place] [address] [place] [address] Care Team Providers Care Etcher Printed Circuit Boards Name Role Phone Dianne Johnson RN Unavailable [phone] Sanjeev Webster DO Primary Care Provider + Reason for Visit * Reason Comments Allied Health Visit Encounter Details Date Type Department Care Team (Latest Contact Info) Description 12/28/2023 2:20 PM CDT Allied Health/Nurse Visit [facility] Group Family & Internal Medicine [address] [place] [address] Sanjeev Webster DO [address] [place] [address] Allied Health Visit Social History Tobacco Use Types Packs/Day Years [...] often do you attend chur ch or orthodox services? More than 4 times per year 08/26/2022 Do you belong to any clubs o r organizations such as shinto groups, unions, fraternal or athletic groups, or [...] Health Questionnaire-2 Score 0 12/08/2023 [facility] of Occupat ional Health - Occupational [...] place to sleep or slept in a long term (including now)? No 08/26/2022 Comments No Sex [...] Notes * Yenifer Ingram MA - 12/28/2023 2:[address] Benavidez reviewed and advised to recheck in one week and stay at the same dose for 5mg Patient v/u documented in this encounter Plan of Treatment Upcoming Encounters Date Type Department Care Team (Late st Contact Info) Description 04/14/2024 2:00 PM TUMBLER OPERATOR Office Visit [facility] Multispecialty Care - [facility] [address] [facility], [address] [place] [address] Julio Pulido MD 3 [place] [address] documented as of this encounter Goals Goal Patient Goal Type Associated Problems Recent Progress Patient-Stated? Author Health - patient able to perform ADLs independently General On track(2023 9:49 AM CDT) Dianne Corona RN Note: 12/17/23: Patient stated she is independent with ASL's. Establish Plan for Symptom Monitoring-CHF General On track(2023 11:36 AM TUMBLER OPERATOR) Dianne Corona RN Note: Patient will [...] Symptom Monitoring-COPD General On track(2023 11:36 AM TUMBLER OPERATOR) Dianne Corona RN Note: Patient will [...] Symptom Monitoring-DM General On track(2023 4:33 PM TUMBLER OPERATOR) Dianne Corona RN Note: Patient will [...] Symptom Monitoring-HTN General On track(2023 4:33 PM TUMBLER OPERATOR) Dianne Corona RN Note: Patient will [...] Date/Time Associated Diagnosis Comments COLLECT.CAPILLARY (FNGR,HEEL,EAR) Routine 12/28/2023 2:31 PM CDT long term (current) use of anticoagulants PROTHROMBIN TIME, FINGERSTICK Routine 12/28/2023 long term (current) use of anticoagulants documented in this encounter Results * PROTIME/INR, FINGERSTICK (12/28/2023) INR WHOLE BLOOD 1.30 MG[facility] 12/28/2023 us Sanjeev Webster DO LABORATORY Final Re sult [address] [address], documented in this encounter Visit Diagnoses Diagnosis penitentiary (current) use of anticoagulants- Primary Long-term (current) use of anticoagulants documented in this encounter Additional Health Concerns Assessment Noted Time PHQ-9 Depression Total Score: 13 023 3:56 PM CDT documented as of this encounter Care Teams Etcher Printed Circuit Boards Relationship Specialty Start Date End Date Sanjeev Webster DO [address] [place] [address] PCP - General FAMILY PRACTICE 09/25/20 Dianne Johnson, RN [address] [place] [address] Workers Compensation Analyst (Ambulatory) REGISTERED NURSE 08/14/20 documented as of this encounter
--- OUTSIDE RECORDS SUMMARY | 2024-03-15 00:48 | XMS_ITS | Encounter Summary ---
Author Organization [facility] Address [facility]6 [facility]. [place], [place] [address] [place] [address] Care Team Providers Care Industrial Retrofit Designer Name Role Phone Dianne Johnson RN Unavailable [phone] Sanjeev Montez DO Primary Care Provider + Reason for Visit * Reason Onset Date Comments Medication Request 01/07/2024 Advice 01/07/2024 Encounter Details Date Type Department Care Team (Late st Contact Info) Description 01/07/[address] [facility] Family & Internal Medicine [address] [place] [address] Sanjeev Montez DO [address] [place] [address] Medication Request; Advice Social History Tobacco Use Types Packs/Day Years [...] often do you attend chur ch or confucianism services? More than 4 times per year 08/26/2022 Do you belong to any clubs o r organizations such as rastafari groups, unions, fraternal or athletic groups, or [...] place to sleep or slept in a prison (including now)? No 08/26/2022 Comments No Sex [...] documented in this encounter Progress Notes * Lola Eli - 01/07/2024 3:37 PM CDT Pt called with results of covid test at home. Test is negative. * Yenifer Ingram MA - 01/07/2024 2:54 PM CDT Spoke with patient and scheduled 1:40 appt for 01/08/2024. The patient v/u * Lola Eli - 01/07/2024 2:44 PM CDT The patient has the following symptom(s): Headaches, Lack of appetite, diarrhea, chills, night sweats Symptom(s) Started: 01/04/24 OTC Medications tried: none Have you been seen with-in the past 30 days for these same symptoms? No If so, where? N/a Home Covid test: Not taken pt will call back with results Call back #: [phone] Allergies: Allergies Allergen Reactions Atorvastatin Leg Pain Leg pain/cramps. Resolved after stopping. Cortisone Unknown and Rash Tape Contact Dermatitis Benzalkonium Other (see comment) Gramicidin Other (see comment) Hydrocortisone Other (see comment) Medical Adhesive Remover Other (see comment) Rosuvastatin Leg Pain Cramping in legs Bacitracin Other (see comment) and Rash Neomycin Other (see comment) and Rash Polymyxin B Other (see comment) and Rash Pharmacy: [facility] [address] [place] [address] [place] Refill request received from Patient Medication: HYDROcodone-acetaminophen (NORCO) 5-325 MG tablet Pharmacy: [facility] [id number] [place] Last visit with SANJEEV MONTEZ in FAMILY PRACTICE was on: 01/01/2024 in [facility] Future Appointments Date Time Provider Department Center 02/29/2024 1:40 PM Sanjeev Montez DO [facility]GFMMRVL [facility] 03/04/2024 1:00 PM [facility] 04/14/2024 2:00 PM Julio Pulido MD [facility] documented in this encounter Plan of Treatment Upcoming Encounters Date Type Department Care Team (Late st Contact Info) Description 04/14/2024 2:00 PM HISTORIOGRAPHER Office Visit [facility] Multispecialty Care - [facility] 3 [facility], [address] [place] [address] Julio Pulido MD 3 [place] [address] documented as of this encounter Goals Goal Patient Goal Type Associated Problems Recent Progress Patient-Stated? Author Health - patient able to perform ADLs independently General On track(2023 9:49 AM CDT) Dianne Corona, RN Note: 12/17/23: Patient stated she is independent with ASL's. Establish Plan for Symptom Monitoring-CHF General On track(2023 11:36 AM HISTORIOGRAPHER) Dianne Corona RN Note: Patient will recognize [...] Symptom Monitoring-COPD General On track(2023 11:36 AM HISTORIOGRAPHER) Dianne Corona RN Note: Patient will recognize [...] Symptom Monitoring-DM General On track(2023 4:33 PM HISTORIOGRAPHER) Dianne Corona RN Note: Patient will manage [...] Symptom Monitoring-HTN General On track(2023 4:33 PM HISTORIOGRAPHER) Dianne Corona RN Note: Patient will monitor [...] documented as of this encounter Care Teams Industrial Retrofit Designer Relationship Specialty Start Date End Date Sanjeev Montez DO [address] [place] [id number] PCP - General FAMILY PRACTICE 09/25/20 Dianne Johnson, RN [address] [place] [address] Telephone Operators Supervisor (Ambulatory) REGISTERED NURSE 08/14/20 documented as of this encounter
--- OUTSIDE RECORDS SUMMARY | 2024-03-15 00:48 | XMS_ITS | Encounter Summary ---
Author Organization [facility] Address [facility]6 [facility] [place] [address] [place] [address] Care Team Providers Care Powder Expert Name Role Phone Casey Johnson RN Unavailable [phone] Sanjeev Webster DO Primary Care Provider + Reason for Visit * Reason Onset Date Comments Care Management 12/31/2023 Encounter Details Date Type Department Care Team (Late st Contact Info) Description 12/31/2023 Patient Outreach [facility] Group Family & Internal Medicine [address] [address] Casey Johnson, RN [address] [place] [address] Care Management Social History Tobacco [...] How often do you attend chur or christianity services? More than 4 times per year 08/26/2022 Do you belong to any clubs o r organizations such as zoroastrian groups, unions, fraternal or athletic groups, or [...] Progress Notes * Casey Johnson RN - 12/31/2023 9:05 AM CDT Chronic Care Management: Patient concerns that need addressed: left big toe is hurting her now on and off. Reports pain is a 10 when she has pain. When she touches the back of her big tow at the bottom it feels like jello. When she walks it moves like it's . Patient stated she had PT/INR done on 12/28/23. She was informed INR: 1.30. Stated she was informedto continue taking Warfarin 5 mg daily and repeat PT/INR on Thursday. She forgot to make an appointment. 4 days ago she checked her BS since she was talking to someone from her insurance company and BS was 60. BS is 79 this morning. Denies any s/s of hypoglycemia at this time. She did not eat anything yet this morning. Encouraged patient to drink 4 ounces of orange juice and recheck BS in 15 minutes. Encouraged not to skip meals. She is on ozempic 0.5 mg once a week. Patient stated she hasn't had any ozempic for a while now since she is out. Patient does not relate ozempic causing issues with low bloodsugar. The above information sent to PCP nursing team. Patient is aware. Patient Status: Contacted patient today. Stated the left big toe is hurting her now on and off. Reports pain is a 10 when she has pain. When she touches the back of her big tow at the bottom it feels like jello. When she walks it moves like it's . Message sent to PCP office for recommendations. DM: Patient stated 4 days ago she checked her BS since she was talking to someone from her insurance company and BS was 60. Educated patient on s/s of hypoglycemia, how to treat and 15-15 rule. Patient stated her hands shake every once in a while but no other s/s. She is on ozempic 0.5 mg once a week. Patient stated she hasn't had any ozempic for a while now since she is out. She received a letter from [facility] stating she is approved for January and February. She will be getting medication in 10 to 15 days from the date of the letter. Asked patient to check BS now. BS is 79 this morning. Denies any s/s of hypoglycemia at this time. She did not eat anything yet this morning. Encouraged patient to drink 4 ounces of orange juice and recheck BS in 15 minutes. Encouraged patient not to skip mealsand to eat small frequent meals through out the day. Educated on fall risk prevention. Instructed patient to check BS every day. If BS is consistently < 70 to report this to PCP or CC immediately.Patient verbalizes understanding. CHF: Patient stated her weight is 176.5 this morning. Encouraged patient to check weight every morning. Educated on the proper way to check weight. When she gets out of bed in the morning, uses restroom, before breakfast, weigh on the same scale with the same amount of clothing on. If 3 lb weight gain over night to report to PCP or CC right away. Denies any issues with swelling at this time. Stated the other day she had swelling in her legs and hands. Educated on the importance of elevating legs past heart level to help reduce swelling. Denies persistent cough or increased sob. Patient verbalizes understanding. COPD: Patient denies increased sob, cough swelling or needing to use albuterol inhaler more often. Educated patient on the importance of eating small healthy meals throughout the day and not big meals as this can help prevent patient from feeling too full. This will make breathing easier. Patient verbalizes understanding. Patient stated she had PT/INR done on 12/28/23. She was informed INR: 1.30. Stated she was informedto continue taking Warfarin 5 mg daily and repeat PT/INR on Thursday. She forgot to make an appointment. Message sent to PCP nursing team. Plan of Care: retail merchandising coordinator will continue to follow up by [...] PM Sanjeev Webster DO MGFMMRVL [facility] 03/04/2024 1:00 PM Sania Gomez MD [facility] 04/14/2024 2:00 PM Julio Pulido MD [facility]AMUSOF [facility] Quality care gaps: Health Maintenance Topic [...] heart disease with congestive heart failure ([facility]) LBBB (left bundle branch block) Myopathy VAZQUEZ (obstructive sleep apnea) Paroxysmal atrial flutter ([facility]) Benign hypertension with CKD (chronic kidney disease) stage III ([facility]) Memory deficits Hearing deficit, bilateral History of cataract extraction, unspecified laterality Vitamin D deficiency Hypercalcemia Chronic frontal sinusitis Constipation, unspecified constipation type Chronic bilateral low back pain without sciatica Iron deficiency anemia, unspecified iron deficiency anemia type Disorder of skin of trunk Anemia Body mass index (BMI) 31.0-31.9, adult 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[facility]) Benign hypertension with stage 3b chronic kidney disease ([facility]) Cobalamin deficiency Compression fracture of thoracic vertebra ([facility]) Depression Diabetic polyneuropathy ([facility]) Disorder of rotator cuff Diverticular disease Dysphagia Elevated troponin Gastroesophageal reflux disease without esophagitis Hyperlipidemia, unspecified hyperlipidemia type Vascular dementia ([facility]) Unknown and unspecified causes of morbidity Syncope, unspecified syncope type Wrist joint pain Requires lifelong warfarin therapy Hyperparathyroidism ([facility]) Presence of prosthetic heart valve Plantar fascial fibromatosis Peripheral neuropathy Parathyroid adenoma Polymyalgia rheumatica ([facility]) Osteoporosis Numbness Muscle cramps Closed stable burst fracture of sixth thoracic vertebra, initial encounter ([facility]) Chest pain Contusion of scalp Knee pain Localized, primary osteoarthritis Osteoarthritis of knee Traumatic closed displaced fracture of distal end of radius Shoulder joint pain Hyperlipidemia associated with type 2 diabetes mellitus ([facility]) Hematoma Anxiety Diastolic heart failure ([facility]) Internal hemorrhoids Leukoencephalopathy Major depression single episode, in partial remission ([facility]) Metacarpal bone fracture Mitral valve disorder Peripheral arterial occlusive disease ([facility]) Primary osteoarthritis involving multiple joints Vision loss COPD (chronic obstructive pulmonary disease) ([facility]) Diarrhea Drug-induced constipation H/O mechanical aortic valve replacement Age-related osteoporosis with current pathological fracture Care Management Physical deconditioning Chronic heart failure with preserved ejection fraction (HFpEF) ([facility]) Paroxysmal atrial fibrillation ([facility]) Hypertension associated with type 2 diabetes mellitus ([facility]) Encounter for prophylactic measures, unspecified Graves' disease Cirrhosis of liver without ascites, unspecified hepatic cirrhosis type ([facility]) Stage 3b chronic kidney disease ([facility]) OLIVE (acute kidney injury) ([facility]) Heart failure with mildly reduced ejection fraction (HFmrEF) ([facility]) Hyperthyroidism Medications: Current Outpatient Medications Medication Sig [...] with Patient Time spent with patient (minutes): 22 Time spent performing chart review (minutes): 6 Total time (minutes): 28 CASEY JOHNSON RN I reviewed the patient's status and education provided by CASEY JOHNSON RN. I agree with the findings and recommendations made. Cosigned by Sanjeev Webster DO at 12/31/2023 3:29 PM CDT documented in this encounter Plan of Treatment Upcoming Encounters Date Type Department Care Team (Late st Contact Info) Description 04/14/2024 2:00 PM PORTABLE SAWMILL OPERATOR Office Visit [facility] Multispecialty Care - [facility] 3 [facility], [address] [place] [address] Julio Pulido MD 3 [place] [address] documented as of this encounter Goals Goal Patient Goal Type Associated Problems Recent Progress Patient-Stated? Author Health - patient able to perform ADLs independently General On track(2023 9:49 AM CDT) Casey Corona RN Note: 12/17/23: Patient stated she is independent with ASL's. Establish Plan for Symptom Monitoring-CHF General On track(2023 11:36 AM PORTABLE SAWMILL OPERATOR) Casey Corona RN Note: Patient will [...] Symptom Monitoring-COPD General On track(2023 11:36 AM PORTABLE SAWMILL OPERATOR) Casey Corona RN Note: Patient will [...] Symptom Monitoring-DM General On track(2023 4:33 PM PORTABLE SAWMILL OPERATOR) Casey Corona RN Note: Patient will [...] Symptom Monitoring-HTN General On track(2023 4:33 PM PORTABLE SAWMILL OPERATOR) Casey Corona RN Note: Patient will [...] disease, without long-term current use of insulin ([facility])- Primary Chronic heart failure with preserved ejection fraction (HFpEF) ([facility]) Chronic obstructive pulmonary disease, unspecified COPD type ([facility]) documented in this encounter Additional Health Concerns Assessment Noted Time PHQ-9 Depression Total Score: 13 023 3:56 PM CDT documented as of this encounter Care Teams Powder Expert Relationship Specialty Start Date End Date Sanjeev Webster DO [address] [place] [address] PCP - General FAMILY PRACTICE 09/25/20 Casey Johnson, RN [address] [place] [address] Questioned Documents Examiner (Ambulatory) REGISTERED NURSE 08/14/20 documented as of this encounter
--- OUTSIDE RECORDS SUMMARY | 2024-03-15 00:48 | XMS_ITS | Encounter Summary ---
Author Organization [facility] Address [facility]6 [facility] [place] [address] [place] [address] Care Team Providers Care Hand Cementer Name Role Phone Dianne Johnson RN Unavailable [phone] Sanjeev Webster DO Primary Care Provider + Encounter Details Date Type Department Care Team (Latest Contact Info) Description 12/21/2023 Travel Social History Tobacco Use Types Packs/Day [...] How often do you attend chur or religion services? More than 4 times per year [...] Recorded Patient Health Questionnaire-2 Score 0 12/08/2023 [facility] of Occupat ional Health - Occupational [...] st Contact Info) Description 04/14/2024 2:00 PM FITNESS AND WELLNESS INSTRUCTOR [facility] - [facility] 3 [facility], [address] [place] [address] Julio Pulido MD 3 [place] [address] documented as of this encounter Goals Goal Patient Goal Type Associated Problems Recent Progress Patient-Stated? Author Health - patient able to perform ADLs independently General On track(2023 9:49 AM CDT) Dianne Corona RN Note: 12/17/23: Patient stated she is independent with ASL's. Establish Plan for Symptom Monitoring-CHF General On track(2023 11:36 AM FITNESS AND WELLNESS INSTRUCTOR) Dianne Corona RN Note: Patient will recognize [...] Symptom Monitoring-COPD General On track(2023 11:36 AM FITNESS AND WELLNESS INSTRUCTOR) Dianne Corona RN Note: Patient will recognize [...] Symptom Monitoring-DM General On track(2023 4:33 PM FITNESS AND WELLNESS INSTRUCTOR) Dianne Corona RN Note: Patient will manage [...] Symptom Monitoring-HTN General On track(2023 4:33 PM FITNESS AND WELLNESS INSTRUCTOR) Dianne Corona, RN Note: Patient will monitor [...] documented as of this encounter Care Teams Hand Cementer Relationship Specialty Start Date End Date Sanjeev Webster DO [address] [place] [address] PCP - General FAMILY PRACTICE 09/25/20 Dianne Johnson, RN [address] [place] [address] Inpatient Pharmacist (Ambulatory) REGISTERED NURSE 08/14/20 documented as of this encounter
--- OUTSIDE RECORDS SUMMARY | 2024-03-15 00:48 | XMS_ITS | Encounter Summary ---
Author Organization [facility] Address [facility] [place] [address] [place] [address] Care Team Providers Care Customer Support Analyst Name Role Phone Dianne Johnson RN Unavailable [phone] Sanjeev Webster DO Primary Care Provider + Reason for Visit * Reason Comments Toe Pain Patient c/o L great toe pain. Encounter Details Date Type Department Care Team (Late st Contact Info) Description 01/01/2024 1:00 PM CDT Office Visit [facility] Family & Internal Medicine [address] [address] Sanjeev Webster DO [facility] [place] [address] Toe Pain (Patient c/o L great toe pain. ) Social History Tobacco Use Types Packs/Day [...] How often do you attend chur or christian services? More than 4 times per year 08/26/2022 Do you belong to any clubs o r organizations such as anabaptist groups, unions, fraternal or athletic groups, or [...] Recorded Patient Health Questionnaire-2 Score 0 12/08/2023 [facility] - Occupational Stress Questionnaire Answer Date [...] Sign Reading Time Taken Comments Blood Pressure 136/74 01/01/2024 12:59 PM CDT Pulse 56 01/01/2024 12:59 PM CDT Temperature 36.3 ??C (97.3 ??F) 01/01/2024 12:59 PM C DT Respiratory Rate 16 01/01/2024 12:59 PM CDT Oxygen Saturation 95% 01/01/2024 12:59 PM CDT Inhaled Oxygen Concentration - - Weight 81.9 kg (180 lb 8 oz) 01/01/2024 12:59 PM CDT Height 165.1 cm (5' 5 ) 01/01/2024 12:59 PM CDT Body Mass Index 30.04 01/01/2024 12:59 PM CDT documented in this encounter Functional Status [...] encounter Progress Notes * Sanjeev Webster, - 01/01/2024 1:00 PM CDT Images from the original note were not included. GENERAL OFFICE VISIT Encounter Date: 01/01/2024 Chief Complaint: 78-year-old female presents for Toe Pain (Patient c/o L great toe pain. ) HPI: Pt presents for left great toe pain. It started about 4-5 days ago. It is similar to the gout pain she had recently. However, this is different in that if feels as if it will separate. Patient has Type 2 Diabetes. Patient has had diabetes for multiple years. Medications include semaglutide specifically for lowering blood sugars. BS logs range: did have a low blood sugar recently, but only had one episode. Patient's weight has not changed. Pt has neuropathy and PAD, both of which are stable. Pt is on gabapentin for neuropathy. No claudication at this time. HGB A1C Date Value Ref Range Status 11/19/2023 6.8 % Final 08/06/2023 6.5 % Final 01/12/2023 6.2 % Final 07/07/2022 6.6 % Final MICROALBUMIN (U) Date Value Ref Range Status 08/14/2023 3.9 <20 MG/L Final Patient presents for follow-up on essential hypertension. Patient has had hypertension for multipleyears. Her levels are controlled today. Current medications include metoprolol and furosemide. Patient's blood pressure is stable today. No side effects noted from medications. Pt is noted to have ass ociated T2DM and CKD stage 3b. Review of Systems Constitutional: Negative for fever. Respiratory: Negative for shortness of breath. Cardiovascular: Negative for chest pain. Musculoskeletal: See HPI Skin: Negative for rash. Patient Active Problem List Diagnosis Abnormal stress test Chronic anticoagulation Coronary artery disease involving sun'aq coronary artery of sun'aq heart without angina pectoris H/O mechanical aortic valve replacement Hypertensive heart disease with congestive heart failure ([facility]) LBBB (left bundle branch block) Myopathy VAZQUEZ (obstructive sleep apnea) Paroxysmal atrial flutter ([facility]) Benign hypertension with CKD (chronic kidney disease) stage III ([facility]) Memory deficits Hearing deficit, bilateral History of cataract extraction, unspecified laterality Vitamin D deficiency Hypercalcemia Chronic frontal sinusitis Constipation, unspecified constipation type Chronic bilateral low back pain without sciatica Iron deficiency anemia, unspecified iron deficiency anemia type Disorder of skin of trunk Anemia Body mass index (BMI) 31.0-31.9, adult 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[facility]) Benign hypertension with stage 3b chronic kidney disease ([facility]) Cobalamin deficiency Compression fracture of thoracic vertebra ([facility]) Depression Diabetic polyneuropathy ([facility]) Disorder of rotator cuff Diverticular disease Dysphagia Elevated troponin Gastroesophageal reflux disease without esophagitis Hyperlipidemia, unspecified hyperlipidemia type Vascular dementia ([facility]) Unknown and unspecified causes of morbidity Syncope, unspecified syncope type Wrist joint pain Requires lifelong warfarin therapy Hyperparathyroidism ([facility]) Presence of prosthetic heart valve Plantar fascial fibromatosis Peripheral neuropathy Parathyroid adenoma Polymyalgia rheumatica ([facility]) Osteoporosis Numbness Muscle cramps Closed stable burst fracture of sixth thoracic vertebra, initial encounter ([facility]) Chest pain Contusion of scalp Knee pain Localized, primary osteoarthritis Osteoarthritis of knee Traumatic closed displaced fracture of distal end of radius Shoulder joint pain Hyperlipidemia associated with type 2 diabetes mellitus ([facility]) Hematoma Anxiety Diastolic heart failure ([facility]) Internal hemorrhoids Leukoencephalopathy Major depression single episode, in partial remission ([facility]) Metacarpal bone fracture Mitral valve disorder Peripheral arterial occlusive disease ([facility]) Primary osteoarthritis involving multiple joints Vision loss COPD (chronic obstructive pulmonary disease) ([facility]) Diarrhea Drug-induced constipation H/O mechanical aortic valve replacement Age-related osteoporosis with current pathological fracture Care Management Physical deconditioning Chronic heart failure with preserved ejection fraction (HFpEF) ([facility]) Paroxysmal atrial fibrillation ([facility]) Hypertension associated with type 2 diabetes mellitus ([facility]) Encounter for prophylactic measures, unspecified Graves' disease Cirrhosis of liver without ascites, unspecified hepatic cirrhosis type ([facility]) Stage 3b chronic kidney disease ([facility]) OLIVE (acute kidney injury) ([facility]) Heart failure with mildly reduced ejection fraction (HFmrEF) ([facility]) Hyperthyroidism 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 Anxiety Atrial fibrillation with rapid ventricular response ([facility]) 08/22/2020 Atrial flutter ([facility]) Cataract Chronic anticoagulation due to mechanical heart valve Chronic pain Diabetes mellitus ([facility]) Gout, unspecified right foot H/O mechanical aortic valve replacement 2003 Hypertension Kidney stone 02/03/2017 On amiodarone therapy 05/21/2021 Past Surgical History: Procedure Laterality Date REPAIR HEART WOUND Family History Problem Relation Name Age of Onset Heart Father Diabetes Father Heart Mother Social History Socioeconomic History Marital status: Spouse name: Not on file Number of children: 4 Years of education: Not on file Highest education level: Not on file Occupational History Not on file Tobacco Use Smoking status: Never Passive exposure: Past Smokeless tobacco: Never Tobacco comments: non smoker Vaping Use Vaping status: Never Used Substance and Sexual Activity Alcohol use: Not Currently Drug use: Yes Types: Hydrocodone Comment: chronic pain Sexual activity: Not on file Other Topics Concern Exercise No Special Diet No Caffeine Concern Yes Social History Narrative Not on file Social Drivers of Health Financial Resource Strain: [...] 10 min Stress: Stress Concern Present (08/26/2022) [facility] - Occupational Stress Questionnaire Feeling of Stress : To some extent Social Connections: Moderately Isolated (08/26/2022) Social Connection and Isolation Panel [NHANES] Frequency of Communication with Friends and Family: Three times a week Frequency of Social Gatherings with Friends and Family: Three times a week Attends Latter-Day Services: More than 4 times per year [...] Unstable Housing in the Last Year: No Immunization History Administered Date(s) Administered Fluzone High [...] (Generic) 06/05/2016, 09/05/2020 Tetanus/Diptheria 07/22/2014 Zoster (Zostavax) 71753 Unt/0.65Ml 12/25/2015 Current Outpatient Medications Medication Sig [...] No current facility-administered medications for this visit. Current Outpatient Medications on File Prior to [...] by Does not apply route as needed. warfarin (COUMADIN) 1 MG tablet Take 1 tablet (1 mg total) by mouth daily. warfarin (COUMADIN) 2 MG tablet Take 1 tablet (2 mg total) by mouth daily. warfarin (COUMADIN) 5 MG tablet Take 1 tablet by mouth once daily warfarin (COUMADIN) 6 MG tablet Take 1 tablet (6 mg total) by mouth daily. No current facility-administered medications on file prior [...] (see comment) and Rash Objective: Filed Vitals: 01/01/24 1259 BP: 136/74 Pulse: (!) 56 Resp: 16 Temp: 97.3 ??F (36.3 ??C) TempSrc: Skin SpO2: 95% Weight: 81.9 kg (180 lb 8 oz) Height: 1.651 m (5' 5 ) Physical Exam Vitals and nursing note reviewed. HENT: Head: Normocephalic and atraumatic. Right Ear: External ear normal. Left Ear: External ear normal. Nose: Nose normal. Eyes: General: No scleral icterus. Conjunctiva/sclera: Conjunctivae normal. Pulmonary: Effort: Pulmonary effort is normal. Musculoskeletal: Comments: No gross deformity or TTP on the left great toe, NV intact Skin: General: Skin is warm and dry. Findings: No rash. Neurological: Mental Status: She is alert. Mental status is at baseline. Psychiatric: Mood and Affect: Mood and affect normal. Assessment & Plan: Radha was seen today for toe pain. Diagnoses and all orders for this visit: Acute gout of left foot, unspecified cause - colchicine 0.6 MG tablet; Day 1: 1.2 mg at the first sign of flare, followed by 0.6 mg after 1 hour. Day 2 and after: take 0.6 mg once daily until resolves - XR GREAT TOE LT 2V; Future Type 2 diabetes mellitus with stage 3b chronic kidney disease, without long-term current use of insulin ([facility]) Benign hypertension with stage 3b chronic kidney disease ([facility]) Discussion/Summary: Suspect gout as well for this digit; given multiple rounds of prednisone recently, will give colchicine as per above. For T2DM, continue current meds. Pt is aware of symptoms of hypoglycemia and whatto do in the given situation. BP within acceptable limits; continue current meds. F/u as scheduled otherwise. Pt v/u. Sanjeev Webster DO documented in this encounter Plan of Treatment Upcoming Encounters Date Type Department Care Team (Late st Contact Info) Description 04/14/2024 2:00 PM ELECTRICAL UNIT REBUILDER Office Visit [facility] Multispecialty Care - [address], [address] [place] [address] Julio Pulido MD [address] [place] [phone] Scheduled Orders Name Type Priority Associated Diagnoses Orde r Schedule XR GREAT TOE LT 2V Imaging Routine Acute gout of left foot, unspecified cause Expected: 01/01/2024, Expires: 12/31/2024 documented as of this encounter Goals Goal Patient Goal Type Associated Problems Recent Progress Patient-Stated? Author Health - patient able to perform ADLs independently General On track(2023 9:49 AM CDT) Dianne Corona RN Note: 12/17/23: Patient stated she is independent with ASL's. Establish Plan for Symptom Monitoring-CHF General On track(2023 11:36 AM ELECTRICAL UNIT REBUILDER) Dianne Corona RN Note: Patient will recognize [...] Symptom Monitoring-COPD General On track(2023 11:36 AM ELECTRICAL UNIT REBUILDER) Dianne Corona RN Note: Patient will recognize [...] Symptom Monitoring-DM General On track(2023 4:33 PM ELECTRICAL UNIT REBUILDER) Dianne Corona RN Note: Patient will manage [...] Symptom Monitoring-HTN General On track(2023 4:33 PM ELECTRICAL UNIT REBUILDER) Dianne Corona RN Note: Patient will monitor B/P several times per week , record readings and report to physician or CC if B/P consistently >130/80 Take your medications as prescribed. Follow up with your provider as scheduled. Take your blood pressure at least several times a week if able. documented as of this encounter Visit Diagnoses Diagnosis Acute gout of left foot, unspecified cause- Primary Type 2 diabetes mellitus with stage 3b chronic kidney disease, without long-term current use of insulin ([facility]) Benign hypertension with stage 3b chronic kidney disease ([facility]) documented in this encounter Additional Health Concerns Assessment Noted Time PHQ-9 Depression Total Score: 13 023 3:56 PM CDT documented as of this encounter Care Teams Customer Support Analyst Relationship Specialty Start Date End Date Sanjeev Webster DO [address] [place] [id number] PCP - General FAMILY PRACTICE 09/25/20 Dianne Johnson RN [address] [place] [address] Dealer Compliance Representative (Ambulatory) REGISTERED NURSE 08/14/20 documented as of this encounter
--- OUTSIDE RECORDS SUMMARY | 2024-03-15 00:48 | XMS_ITS | Encounter Summary ---
Author Organization [facility] Address Count includes the [facility] [place] [address] [place] [address] Care Team Providers Care Radial Drill Operator For Plastic Name Role Phone Dianne Johnson RN Unavailable [phone] Sanjeev Webster DO Primary Care Provider + Reason for Visit * Reason Onset Date Comments Appointment Request 01/13/2024 Encounter Details Date Type Department Care Team (Late st Contact Info) Description 01/13/2024 Telephone [facility] Family & Internal Medicine [id number] [place] [address] Sanjeev Webster DO [address] [place] [address] Appointment Request Social History Tobacco [...] often do you attend chur ch or yarsanism services? More than 4 times per year 08/26/2022 Do you belong to any clubs o r organizations such as catholic groups, unions, fraternal or athletic groups, or [...] Recorded Patient Health Questionnaire-2 Score 0 12/08/2023 [facility] - [...] Progress Notes * Yenifer Ingram MA - 01/13/2024 2:05 PM CST Nurse visit made. AIGN ANALYST * Dianne Johnson RN - 01/13/2024 1:56 PM CST Please call patient to schedule PT/INR. She is due to have it done this week. Thank you. AIGN ANALYST documented in this encounter Plan of Treatment Upcoming Encounters Date Type Department Care Team (Late st Contact Info) Description 04/14/2024 2:00 PM CAMPAIGN ANALYST Office Visit [facility] Multispecialty Care - [facility] [address] [facility], [address] [place] [phone] Julio Pulido MD [address] [place] [address] documented as of this encounter Goals Goal Patient Goal Type Associated Problems Recent Progress Patient-Stated? Author Health - patient able to perform ADLs independently General On track(2023 9:49 AM CDT) Dianne Corona, RN Note: 12/17/23: Patient stated she is independent with ASL's. Establish Plan for Symptom Monitoring-CHF General On track(2023 11:36 AM CAMPAIGN ANALYST) Dianne Corona, RN Note: Patient will recognize [...] Symptom Monitoring-COPD General On track(2023 11:36 AM CAMPAIGN ANALYST) Dianne Corona RN Note: Patient will recognize [...] Symptom Monitoring-DM General On track(2023 4:33 PM CAMPAIGN ANALYST) Dianne Corona RN Note: Patient will manage [...] Symptom Monitoring-HTN General On track(2023 4:33 PM CAMPAIGN ANALYST) No Johnson, Dianne R, RN Note: Patient [...] documented as of this encounter Care Teams Radial Drill Operator For Plastic Relationship Specialty Start Date End Date Sanjeev Webster DO [address] [place] [id number] PCP - General FAMILY PRACTICE 09/25/20 Dianne Johnson, RN [address] [place] [address] Testing Projects Administrator (Ambulatory) REGISTERED NURSE 08/14/20 documented as of this encounter
--- OUTSIDE RECORDS SUMMARY | 2024-03-15 00:48 | XMS_ITS | Encounter Summary ---
Author Organization [facility] Address [facility] [place], [place] [address] [place] [address] Care Team Providers Care Cafeteria Counter Attendant Name Role Phone Dianne Johnson RN Unavailable [phone] Sanjeev Webster DO Primary Care Provider + Reason for Visit * Reason Onset Date Comments Appointment Request 12/31/2023 Concerns 12/31/2023 Encounter Details Date Type Department Care Team (Late st Contact Info) Description 12/31/2023 Telephone [facility] Family & Internal Medicine [address] [address] Sanjeev Webster DO [address] [place] [address] Appointment Request; Concerns Social History Tobacco Use Types Packs/Day Years [...] often do you attend chur ch or sabianism services? More than 4 times per year 08/26/2022 Do you belong to any clubs o r organizations such as oriental orthodox groups, unions, fraternal or athletic groups, or [...] Recorded Patient Health Questionnaire-2 Score 0 12/08/2023 [facility] - Occupational [...] place to sleep or slept in a assisted (including now)? No 08/26/2022 Comments No Sex [...] Notes * Yenifer Ingram MA - 12/31/2023 2:09 PM CDT Called patient and LMOM for r/c. Patient is scheduled in appointed slot. LMOM for Izzy as well notifying her of appt. * Sanjeev Webster DO - 12/31/2023 12:50 PM CDT I can see her tomorrow at 1:00. * Dianne Johnson RN - 12/31/2023 10:01 AM CDT Patient concerns that need addressed: Left big toe is hurting her now on and off. Reports pain is a 10 when she has pain. When she touches the back of her big tow at the bottom it feels like jello. When she walks it moves like it's . She currently has gout in right foot. Requesting PCP recommendations. Patient had PT/INR done on 12/28/23. She was informed INR: 1.30. Stated she was informed to continue taking Warfarin 5 mg daily and repeat PT/INR on Thursday. She forgot to make an appointment. Please call her with appointment details. 4 days ago she checked her BS since she was talking to someone from her insurance company and BS was 60. BS is 79 this morning. Denies any s/s of hypoglycemia at this time. Reports hands shake every once in a while. She did not eat anything yet this morning. Encouraged patient to drink 4 ounces of orange juice and recheck BS in 15 minutes. Encouraged not to skip meals. She is on ozempic 0.5 mg once a week. Patient stated she hasn't had any ozempic for a while now since she is out. Patient does not relate ozempic causing issues with low blood sugar. documented in this encounter Plan of Treatment Upcoming Encounters Date Type Department Care Team (Late st Contact Info) Description 04/14/2024 2:00 PM WATCH ADJUSTER Office Visit [facility] Multispecialty Care - [facility] [address] [facility], [address] [place] [phone] Julio Pulido MD [address] [place] [address] documented as of this encounter Goals Goal Patient Goal Type Associated Problems Recent Progress Patient-Stated? Author Health - patient able to perform ADLs independently General On track(2023 9:49 AM CDT) Dianne Corona, DALE Note: 12/17/23: Patient stated she is independent with ASL's. Establish Plan for Symptom Monitoring-CHF General On track(2023 11:36 AM WATCH ADJUSTER) Dianne Corona, DALE Note: Patient will recognize symptoms of CHF [...] Symptom Monitoring-COPD General On track(2023 11:36 AM WATCH ADJUSTER) Dianne CoronaDALE Note: Patient will recognize symptoms of COPD [...] Symptom Monitoring-DM General On track(2023 4:33 PM WATCH ADJUSTER) Dianne Corona RN Note: Patient will manage [...] Symptom Monitoring-HTN General On track(2023 4:33 PM WATCH ADJUSTER) Dianne Corona RN Note: Patient will monitor [...] documented as of this encounter Care Teams Cafeteria Counter Attendant Relationship Specialty Start Date End Date Sanjeev Webster DO [address] [place] [id number] PCP - General FAMILY PRACTICE 09/25/20 Dianne Johnson, RN [address] [place] [address] Hook Puller (Ambulatory) REGISTERED NURSE 08/14/20 documented as of this encounter
--- OUTSIDE RECORDS SUMMARY | 2024-03-15 00:48 | XMS_ITS | Encounter Summary ---
Author Organization [facility] Address [facility] [place] [address] [place] [address] Care Team Providers Care Salon Customer Experience Specialist Name Role Phone Dianne Johnson RN Unavailable [phone] Sanjeev Webster DO Primary Care Provider + Reason for Visit * Reason Onset Date Comments Follow Up Call 12/23/2023 Encounter Details Date Type Department Care Team (Late st Contact Info) Description 12/23/2023 Telephone [facility] Family & Internal Medicine [id number] [place] [address] Sanjeev Webster DO [address] [place] [address] Follow Up Call Social History Tobacco Use Types Packs/Day Years [...] any clubs o r organizations such as evangelical groups, unions, fraternal or athletic groups, or [...] Progress Notes * Dianne Johnson RN - 12/23/2023 12:21 PM CDT Patient concerns that need addressed: Patient inquiring if Ozempic from PAP has been delivered to the office. She only has one pen left. She is wanting to know if Ozempic dose will be increased. Stated so far she's lost 2 lbs and 6 ounces. documented in this encounter Plan of Treatment Upcoming Encounters Date Type Department Care Team (Late st Contact Info) Description 04/14/2024 2:00 PM PHYSICIAN OBSTETRICIAN Office Visit [facility] Multispecialty Care - [facility] [address] [facility], [address] [place] [phone] Julio Pulido MD [address] [place] [address] documented as of this encounter Goals Goal Patient Goal Type Associated Problems Recent Progress Patient-Stated? Author Health - patient able to perform ADLs independently General On track(2023 9:49 AM CDT) Dianne Corona RN Note: 12/17/23: Patient stated she is independent with ASL's. Establish Plan for Symptom Monitoring-CHF General On track(2023 11:36 AM PHYSICIAN OBSTETRICIAN) Dianne Corona RN Note: Patient will recognize [...] Symptom Monitoring-COPD General On track(2023 11:36 AM PHYSICIAN OBSTETRICIAN) Dianne Corona RN Note: Patient will recognize [...] Symptom Monitoring-DM General On track(2023 4:33 PM PHYSICIAN OBSTETRICIAN) Dianne Corona RN Note: Patient will manage [...] Symptom Monitoring-HTN General On track(2023 4:33 PM PHYSICIAN OBSTETRICIAN) Dianne Corona RN Note: Patient will monitor [...] documented as of this encounter Care Teams Salon Customer Experience Specialist Relationship Specialty Start Date End Date Sanjeev Webster DO [address] [place] [address] PCP - General FAMILY PRACTICE 09/25/20 Dianne Johnson, RN [address] [place] [address] Event Marketing Representative (Ambulatory) REGISTERED NURSE 08/14/20 documented as of this encounter
--- OUTSIDE RECORDS SUMMARY | 2024-03-15 00:48 | XMS_ITS | Encounter Summary ---
Author Organization [facility] Address [facility]6 [facility]. [place], [place] [address] [place] [address] Care Team Providers Care Extruder Operator Vertical Name Role Phone Dianne Johnson RN Unavailable [phone] Sanjeev Webster DO Primary Care Provider + Reason for Visit * Reason Onset Date Comments Anticoagulation 01/04/2024 Encounter Details Date Type Department Care Team (Late st Contact Info) Description 01/04/2024 Telephone [facility] Family & Internal Medicine [id number] [place] [address] Sanjeev Webster DO [facility] [place] [address] Anticoagulation Social History Tobacco Use [...] How often do you attend chur or oriental orthodox services? More than 4 times per year 08/26/2022 Do you belong to any clubs o r organizations such as episcopalian groups, unions, fraternal or athletic groups, or [...] documented in this encounter Progress Notes * Diana Cantrell MA - 01/04/2024 3:43 PM CDT Pt and her daughter, Izzy, are aware. ----- Message from Dr. Sanjeev Webster sent at 01/04/2024 1:01 PM CDT ----- Improving; no change in dose and repeat in 1 week. documented in this encounter Plan of Treatment Upcoming Encounters Date Type Department Care Team (Late st Contact Info) Description 04/14/2024 2:00 PM AUTOMOTIVE PROFESSIONAL Office Visit [facility] Multispecialty Care - [address], [address] [place] [address] Julio Pulido MD [address] [place] [address] documented as of this encounter Goals Goal Patient Goal Type Associated Problems Recent Progress Patient-Stated? Author Health - patient able to perform ADLs independently General On track(2023 9:49 AM CDT) Dianne Corona, RN Note: 12/17/23: Patient stated she is independent with ASL's. Establish Plan for Symptom Monitoring-CHF General On track(2023 11:36 AM AUTOMOTIVE PROFESSIONAL) Dianne Corona, RN Note: Patient will recognize [...] Symptom Monitoring-COPD General On track(2023 11:36 AM AUTOMOTIVE PROFESSIONAL) Dianne Corona RN Note: Patient will recognize [...] Symptom Monitoring-DM General On track(2023 4:33 PM AUTOMOTIVE PROFESSIONAL) Dianne Corona RN Note: Patient will manage [...] Symptom Monitoring-HTN General On track(2023 4:33 PM AUTOMOTIVE PROFESSIONAL) No Johnson, Dianne R, RN Note: Patient [...] documented as of this encounter Care Teams Extruder Operator Vertical Relationship Specialty Start Date End Date Sanjeev Webster DO [address] [place] [address] [id number] PCP - General FAMILY PRACTICE 09/25/20 Dianne Johnson, RN [address] [place] [address] Home Health Scheduler (Ambulatory) REGISTERED NURSE 08/14/20 documented as of this encounter
--- OUTSIDE RECORDS SUMMARY | 2024-03-15 00:48 | XMS_ITS | Encounter Summary ---
Author Organization [facility] Address [facility]6 [place] [address] [place] [address] Care Team Providers Care Filling Separator Name Role Phone Dianne Johnson RN Unavailable [phone] Sanjeev Webster DO Primary Care Provider + Reason for Visit * Reason Onset Date Comments Orders 12/21/2023 Encounter Details Date Type Department Care Team (Late st Contact Info) Description 12/21/2023 Patient Outreach [facility] Medical Group Family & Internal Medicine [address] [address] Dianne Johnson, RN [address] [place] [address] Orders Social History Tobacco Use Types Packs/Day Years [...] often do you attend chur ch or buddhist services? More than 4 times per year 08/26/2022 Do you belong to any clubs o r organizations such as scientology groups, unions, fraternal or athletic groups, or [...] Patient Health Questionnaire-2 Score 0 12/08/2023 [facility] - [...] place to sleep or slept in a fpc (including now)? No 08/26/2022 Comments No Sex [...] Progress Notes * Dianne Johnson RN - 12/21/2023 12:27 PM CDT would like to order a walker for patient. Spoke to patient and she doesn't have a DMEpreference. CC attempted to place order for walker and fax to [facility]. Unable to fax order through computer. CC does not have the equipment to print order and fax it. Please fax walker order to [facility], with today's note and demographics. Thank you. * Yenifer Wolf MA - 12/21/2023 12:27 PM CDT Order printed and faxed * Yenifer Wolf MA - 12/21/2023 12:27 PM CDTAddended by: YENIFER WOLF on: 12/21/2023 04:15 PM Modules accepted: Orders documented in this encounter Plan of Treatment Upcoming Encounters Date Type Department Care Team (Late st Contact Info) Description 04/14/2024 2:00 PM OPERATIONS RESEARCH SCIENTIST Office Visit [facility] Medical Group Multispecialty Care - [facility] [address] [facility], [address] [place] [address] Julio Pulido MD [address] [place] [address] documented as of this encounter Goals Goal Patient Goal Type Associated Problems Recent Progress Patient-Stated? Author Health - patient able to perform ADLs independently General On track(2023 9:49 AM CDT) Dianne Corona RN Note: 12/17/23: Patient stated she is independent with ASL's. Establish Plan for Symptom Monitoring-CHF General On track(2023 11:36 AM OPERATIONS RESEARCH SCIENTIST) Dianne Corona, RN Note: Patient will recognize [...] Symptom Monitoring-COPD General On track(2023 11:36 AM OPERATIONS RESEARCH SCIENTIST) Dianne Corona RN Note: Patient will recognize [...] Symptom Monitoring-DM General On track(2023 4:33 PM OPERATIONS RESEARCH SCIENTIST) Dianne Corona RN Note: Patient will manage [...] Symptom Monitoring-HTN General On track(2023 4:33 PM OPERATIONS RESEARCH SCIENTIST) No Dianne Johnson, RN Note: Patient will [...] gout of right foot, unspecified cause- Primary documented in this encounter Additional Health Concerns Assessment Noted Time PHQ-9 Depression Total Score: 13 023 3:56 PM CDT documented as of this encounter Care Teams Filling Separator Relationship Specialty Start Date End Date Sanjeev Webster DO [address] [place] [address] PCP - General FAMILY PRACTICE 09/25/20 Dianne Johnson, RN [address] [place] [address] Public Health Analyst (Ambulatory) REGISTERED NURSE 08/14/20 documented as of this encounter
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
--- OUTSIDE RECORDS SUMMARY | 2024-03-15 00:48 | XMS_ITS | Encounter Summary ---
Author Organization [facility] Address [facility] [place] [address] [place] [address] Care Team Providers Care Finishing Area Supervisor Name Role Phone Dianne Johnson RN Unavailable [phone] Sanjeev Webster DO Primary Care Provider + Encounter Details Date Type Department Care Team (Latest Contact Info) Description 12/30/2023 Scan HEALTH INFO SRVCS Scanned, Doc Med [...] often do you attend chur ch or judaism services? More than 4 times per year [...] Recorded Patient Health Questionnaire-2 Score 0 12/08/2023 [facility] of Occupat ional Health - [...] st Contact Info) Description 04/14/2024 2:00 PM HEAD REFRIGERATING ENGINEER Office Visit [facility] Group Multispecialty Care - [facility] [address] [facility], [address] [place] [address] Julio Pulido MD [address] [place] [address] documented as of this encounter Goals Goal Patient Goal Type Associated Problems Recent Progress Patient-Stated? Author Health - patient able to perform ADLs independently General On track(2023 9:49 AM CDT) Dianne Corona RN Note: 12/17/23: Patient stated she is independent with ASL's. Establish Plan for Symptom Monitoring-CHF General On track(2023 11:36 AM HEAD REFRIGERATING ENGINEER) Dianne Corona RN Note: Patient will [...] Symptom Monitoring-COPD General On track(2023 11:36 AM HEAD REFRIGERATING ENGINEER) Dianne Corona RN Note: Patient will [...] Symptom Monitoring-DM General On track(2023 4:33 PM HEAD REFRIGERATING ENGINEER) Dianne Corona, RN Note: Patient will manage [...] Symptom Monitoring-HTN General On track(2023 4:33 PM HEAD REFRIGERATING ENGINEER) Dianne Corona, RN Note: Patient will monitor [...] documented as of this encounter Care Teams Finishing Area Supervisor Relationship Specialty Start Date End Date Sanjeev Webster DO [address] [place] [phone] PCP - General FAMILY PRACTICE 09/25/20 Dianne Johnson, RN [address] [place] [address] Lube Worker (Ambulatory) REGISTERED NURSE 08/14/20 documented as of this encounter
--- OUTSIDE RECORDS SUMMARY | 2024-03-15 00:48 | XMS_ITS | Encounter Summary ---
Author Organization [facility] Address [facility] [place] [address] [place] [address] Care Team Providers Care Photographic Laboratory Supervisor Name Role Phone Dianne Johnson RN Unavailable [phone] Sanjeev Webster DO Primary Care Provider + Encounter Details Date Type Department Care Team (Latest Contact Info) Description 01/01/2024 Travel Social History Tobacco Use Types Packs/Day [...] How often do you attend chur or holiness services? More than 4 times per year 08/26/2022 Do you belong to any clubs o r organizations such as episcopal groups, unions, fraternal or athletic groups, or [...] Recorded Patient Health Questionnaire-2 Score 0 12/08/2023 [facility] of Occupat ional Health - Occupational [...] st Contact Info) Description 04/14/2024 2:00 PM PARADICHLOROBENZENE MACHINE OPERATOR Office Visit [facility] Group Multispecialty Care - [facility] [address] [facility], [address] [place] [address] Julio Pulido MD [address] [place] [address] documented as of this encounter Goals Goal Patient Goal Type Associated Problems Recent Progress Patient-Stated? Author Health - patient able to perform ADLs independently General On track(2023 9:49 AM CDT) Dianne Corona RN Note: 12/17/23: Patient stated she is independent with ASL's. Establish Plan for Symptom Monitoring-CHF General On track(2023 11:36 AM PARADICHLOROBENZENE MACHINE OPERATOR) Dianne Corona RN Note: Patient [...] Symptom Monitoring-COPD General On track(2023 11:36 AM PARADICHLOROBENZENE MACHINE OPERATOR) Dianne Corona RN Note: Patient [...] Symptom Monitoring-DM General On track(2023 4:33 PM PARADICHLOROBENZENE MACHINE OPERATOR) Dianne Corona RN Note: Patient [...] Symptom Monitoring-HTN General On track(2023 4:33 PM PARADICHLOROBENZENE MACHINE OPERATOR) Dianne Corona, RN Note: Patient will [...] documented as of this encounter Care Teams Photographic Laboratory Supervisor Relationship Specialty Start Date End Date Sanjeev Webster DO [address] [place] [phone] PCP - General FAMILY PRACTICE 09/25/20 Dianne Johnson, RN [address] [place] [address] Getter Welder (Ambulatory) REGISTERED NURSE 08/14/20 documented as of this encounter
--- OUTSIDE RECORDS SUMMARY | 2024-03-15 00:48 | XMS_ITS | Encounter Summary ---
Author Organization [facility] Address [facility] [place] [address] [place] [address] Care Team Providers Care Poly Packer And Heat Sealer Name Role Phone Dianne Johnson RN Unavailable [phone] Sanjeev Webster DO Primary Care Provider + Reason for Visit * Reason Comments Headache The patient states s he had chills, headache and sweats. The patient had negative covid test at home. Encounter Details Date Type Department Care Team (Late st Contact Info) Description 01/08/2024 1:40 PM CDT Office Visit [facility] Family & Internal Medicine [address] [phone] Sanjeev Webster DO [address] [place] [id number] Headache (The patient states she had chills, headache and sweats. The patient had negative covid test at home.) Social History Tobacco Use Types Packs/Day Years [...] week 08/26/2022 How often do you attend [facility] or religion services? More than 4 times [...] Recorded Patient Health Questionnaire-2 Score 0 12/08/2023 [facility] - Occupational Stress [...] Sign Reading Time Taken Comments Blood Pressure 134/84 01/08/2024 12:21 PM CDT Pulse 67 01/08/2024 12:21 PM CDT Temperature 36.1 ??C (97 ??F) 01/08/2024 12:21 PM CDT Respiratory Rate 16 01/08/2024 12:21 PM CDT Oxygen Saturation 96% 01/08/2024 12:21 PM CDT Inhaled Oxygen Concentration - - Weight 79.8 kg (176 lb) 01/08/2024 12:21 PM CDT Height 165.1 cm (5' 5 ) 01/08/2024 12:21 PM CDT Body Mass Index 29.29 01/08/2024 12:21 PM CDT documented in this encounter Functional [...] Assessment Author Status Yes 08/26/2022 7:46 PM CDT Indiana Gunderson RN Active * Do you have difficulty dressing or bathing? Answer Date of Assessment Author Status No 08/26/2022 7:46 PM CDT Indiana Gunderson RN Active * Because of [...] encounter Progress Notes * Sanjeev Webster, - 01/08/2024 1:40 PM CDT Images from the original note were not included. GENERAL OFFICE VISIT Encounter Date: 01/08/2024 Chief Complaint: 78-year-old female presents for Headache (The patient states she had chills, headache and sweats. The patient had negative covid test at home.) HPI: Patient states symptoms have been present for 4 days. Symptoms include headache, sweats, chills, diarrhea. Pertinent negatives include Fevers. Patient has sick contacts. OTC medications tried include none. Pt did a home COVID swab which was negative. Pt notes she is improving with her foot pain after starting colchicine, consistent with gout. She is needing a refill of hydrocodone. Review of Systems Constitutional: Negative for fever. HENT: See HPI Respiratory: Negative for cough. Musculoskeletal: Positive for myalgias. Neurological: Positive for headaches. Patient Active Problem List Diagnosis Abnormal stress test Chronic anticoagulation Coronary artery disease involving telida coronary artery of telida heart without angina pectoris H/O mechanical aortic valve replacement Hypertensive heart disease with congestive heart failure ([facility]) LBBB (left bundle branch block) Myopathy VAZQUEZ (obstructive sleep apnea) Paroxysmal atrial flutter ([facility]) Benign hypertension with CKD (chronic kidney disease) stage III ([facility]) Memory deficits Hearing deficit, bilateral History of cataract extraction, unspecified laterality Vitamin D deficiency Hypercalcemia Chronic frontal sinusitis Constipation, unspecified constipation type Chronic bilateral low back pain without sciatica Iron deficiency anemia, unspecified iron deficiency anemia type Disorder of skin of trunk Anemia Body mass index (BMI) 31.0-31.9, adult 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[facility]) Benign hypertension with stage 3b chronic kidney disease ([facility]) Cobalamin deficiency Compression fracture of thoracic vertebra ([facility]) Depression Diabetic polyneuropathy ([facility]) Disorder of rotator cuff Diverticular disease Dysphagia Elevated troponin Gastroesophageal reflux disease without esophagitis Hyperlipidemia, unspecified hyperlipidemia type Vascular dementia ([facility]) Unknown and unspecified causes of morbidity Syncope, unspecified syncope type Wrist joint pain Requires lifelong warfarin therapy Hyperparathyroidism ([facility]) Presence of prosthetic heart valve Plantar fascial fibromatosis Peripheral neuropathy Parathyroid adenoma Polymyalgia rheumatica ([facility]) Osteoporosis Numbness Muscle cramps Closed stable burst fracture of sixth thoracic vertebra, initial encounter ([facility]) Chest pain Contusion of scalp Knee pain Localized, primary osteoarthritis Osteoarthritis of knee Traumatic closed displaced fracture of distal end of radius Shoulder joint pain Hyperlipidemia associated with type 2 diabetes mellitus ([facility]) Hematoma Anxiety Diastolic heart failure ([facility]) Internal hemorrhoids Leukoencephalopathy Major depression single episode, in partial remission [place] Metacarpal bone fracture Mitral valve disorder Peripheral arterial occlusive disease ([facility]) Primary osteoarthritis involving multiple joints Vision loss COPD (chronic obstructive pulmonary disease) ([facility]) Diarrhea Drug-induced constipation H/O mechanical aortic valve replacement Age-related osteoporosis with current pathological fracture Care Management Physical deconditioning Chronic heart failure with preserved ejection fraction (HFpEF) ([facility]) Paroxysmal atrial fibrillation ([facility]) Hypertension associated with type 2 diabetes mellitus ([facility]) Encounter for prophylactic measures, unspecified Graves' disease Cirrhosis of liver without ascites, unspecified hepatic cirrhosis type ([facility]) Stage 3b chronic kidney disease ([facility]) OLIVE (acute kidney injury) [place] Heart failure with mildly reduced ejection fraction (HFmrEF) ([facility]) Hyperthyroidism 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 Anxiety Atrial fibrillation with rapid ventricular response ([facility]) 08/22/2020 Atrial flutter ([facility] Cataract Chronic anticoagulation due to mechanical heart valve Chronic pain Diabetes mellitus ([facility]) Gout, unspecified right foot H/O mechanical aortic [...] 10 min Stress: Stress Concern Present (08/26/2022) [facility] [facility] [employer] [facility] - Occupational Stress Questionnaire [...] (Generic) 06/05/2016, 09/05/2020 Tetanus/Diptheria 07/22/2014 Zoster (Zostavax) 40960 Unt/0.65Ml 12/25/2015 Current Outpatient Medications Medication Sig Dispense Refill doxycycline hyclate (VIBRAMYCIN) 100 MG capsule Take 1 capsule (100 mg total) by mouth 2 (two) times daily for 10 days. 20 capsule 0 HYDROcodone-acetaminophen (NORCO) 5-325 MG tablet Take 1-2 tablets by mouth every 6 (six) hours as needed for Pain. Indications: Chronic Pain 60 tablet 0 acetaminophen (TYLENOL) 500 MG tablet Take 1 [...] not apply route daily. 100 strip 3 Lancets (ONETOUCH ULTRASOFT) lancets 1 each by [...] take 0.6 mg once daily until resolves denosumab (PROLIA) 60 MG/ML injection ferrous sulfate, [...] Device by Does not apply route daily. Lancets (InfrafoneTOUCH ULTRASOFT) lancets 1 each by Other route [...] (1,000 mcg total) by mouth daily. WALKER CANDYC, THOMAS, 1 Device by Does not apply route [...] (see comment) and Rash Objective: Filed Vitals: 01/08/24 1221 BP: 134/84 Pulse: 67 Resp: 16 Temp: 97 ??F (36.1 ??C) TempSrc: Skin SpO2: 96% Weight: 79.8 kg (176 lb) Height: 1.651 m (5' 5 ) Physical Exam Vitals and nursing note reviewed. HENT: Head: Normocephalic and atraumatic. Right Ear: Tympanic membrane, ear canal and external ear normal. Left Ear: Tympanic membrane, ear canal and external ear normal. Mouth/Throat: Pharynx: No oropharyngeal exudate. Eyes: General: No scleral icterus. Conjunctiva/sclera: Conjunctivae normal. Cardiovascular: Rate and Rhythm: Normal rate and regular rhythm. Heart sounds: Normal heart sounds. No murmur heard. No friction rub. No gallop. Pulmonary: Effort: Pulmonary effort is normal. No respiratory distress. Breath sounds: Normal breath sounds. No wheezing or rales. Abdominal: Palpations: Abdomen is soft. Tenderness: There is no abdominal tenderness. Musculoskeletal: Cervical back: Neck supple. Lymphadenopathy: Cervical: No cervical adenopathy. Skin: General: Skin is warm and dry. Findings: No rash. Neurological: Mental Status: She is alert. Mental status is at baseline. Psychiatric: Mood and Affect: Mood and affect normal. Office Visit on 01/08/2024 Component Date Value Ref Range Status CORONAVIRUS ANTIGEN IA 01/08/2024 NEGATIVE NEGATIVE Final INFLUENZA A 01/08/2024 NEGATIVE NEGATIVE Final INFLUENZA B 01/08/2024 NEGATIVE NEGATIVE Final Internal Control: 01/08/2024 VALID VALID Final Assessment & Plan: Radha was seen today for headache. Diagnoses and all orders for this visit: Upper respiratory tract infection, unspecified type - doxycycline hyclate (VIBRAMYCIN) 100 MG capsule; Take 1 capsule (100 mg total) by mouth 2 (two) times daily for 10 days. Chills (without fever) - CORONAVIRUS (COVID 19) PCR; Future - CORONAVIRUS (COVID-19) INFLUENZA A & B ANTIGEN IA PANEL - CORONAVIRUS (COVID 19) PCR Other chronic pain - HYDROcodone-acetaminophen (NORCO) 5-325 MG tablet; Take 1-2 tablets by mouth every 6 (six) hours as needed for Pain. Indications: Chronic Pain Discussion/Summary: Will treat as per above; discussed side effect profile. Discussed conservative and expected management. Call back if worsening or not improving as expected. Will refill hydrocodone; stable. Will continue colchicine at this time. F/u with regular appointments otherwise. Pt v/u. Sanjeev Webster DO documented in this encounter Plan of Treatment Upcoming Encounters Date Type Department Care Team (Late st Contact Info) Description 04/14/2024 2:00 PM SPOT BILLING CLERK Office Visit [facility] Multispecialty Care - [address], [address] [place] [phone] Julio Pulido MD [address] [place] [phone] documented as of this encounter Goals Goal Patient Goal Type Associated Problems Recent Progress Patient-Stated? Author Health - patient able to perform ADLs independently General On track(2023 9:49 AM CDT) Dianne Corona RN Note: 12/17/23: Patient stated she is independent with ASL's. Establish Plan for Symptom Monitoring-CHF General On track(2023 11:36 AM SPOT BILLING CLERK) Dianne Corona RN Note: Patient will recognize [...] Symptom Monitoring-COPD General On track(2023 11:36 AM SPOT BILLING CLERK) Dianne Corona RN Note: Patient will recognize [...] Symptom Monitoring-DM General On track(2023 4:33 PM SPOT BILLING CLERK) Dianne Corona RN Note: Patient will manage [...] Symptom Monitoring-HTN General On track(2023 4:33 PM SPOT BILLING CLERK) Dianne Corona RN Note: Patient will monitor B/P several times per week , record readings and report to physician or CC if B/P consistently >130/80 Take your medications as prescribed. Follow up with your provider as scheduled. Take your blood pressure at least several times a week if able. documented as of this encounter Procedures Procedure Name Priority Date/Time Associated Diagnosis Comments CORONAVIRUS (COVID 19) PCR Routine 01/08/2024 1:05 PM CDT Chills (without fever) CORONAVIRUS (COVID-19) INFLUENZA A & B ANTIGEN IA PANEL Routine 01/08/2024 Chills (without fever) documented in this encounter Results * CORONAVIRUS (COVID 19) PCR (01/08/2024 1:05 PM CDT) SPEC DESCRIPTION NASAL 01/08/20 24 1:05 PM CDT [facility] CORONAVIRUS SARS COV 2 PCR (RESP) NEGATIVE NEGATIVE 01/09/2024 10:58 PM CDT [facility] Comment: THE SARS-CoV-2 TEST HAS BEEN AUTHORIZED BY THE FDA UNDER AN EUA FOR USE BY AUTHORIZED LABORATORIES. PERFORMED BY NUCLEIC ACID AMPLIFICATION PCR NASAL STRUCTURE / Unknown 01/08/2024 1:05 PM CDT us Sanjeev Webster DO MICROBIOLOGY - GENERAL O RDERABLES Final Result [facility] [address] [place] [address], [place] [phone] * CORONAVIRUS (COVID-19) INFLUENZA A & B ANTIGEN IA PANEL (01/08/2024) CORONAVIRUS ANTIGEN IA NEGATIVE NEGATIVE [facility] INFLUENZA A NEGATIVE NEGATIVE [facility] INFLUENZA B NEGATIVE NEGATIVE [facility] Internal Control: VALID VALID [facility] NASAL STRUCTURE / Unknown 01/08/2024 us Sanjeev Webster DO MICROBIOLOGY - GENERAL O RDERABLES Final Result [facility] [address] [place] [address], documented in this encounter Visit Diagnoses Diagnosis Upper respiratory tract infection, unspecified type- Primary Chills (without fever) Other chronic pain documented in this encounter Additional Health Concerns Assessment Noted Time PHQ-9 Depression Total Score: 13 023 3:56 PM CDT documented as of this encounter Care Teams Poly Packer And Heat Sealer Relationship Specialty Start Date End Date Sanjeev Webster DO [address] [place] [phone] PCP - General FAMILY PRACTICE 09/25/20 Dianne Johnson, RN [address] [place] [address] Project Management Professional (Ambulatory) REGISTERED NURSE 08/14/20 documented as of this encounter
--- OUTSIDE RECORDS SUMMARY | 2024-03-15 00:48 | XMS_ITS | Encounter Summary ---
Author Organization [facility] Address [facility] [facility] [place] [address] [place] [address] Care Team Providers Care Pile Driver Engineer Name Role Phone Dianne Johnson RN Unavailable [phone] Sanjeev Webster DO Primary Care Provider + Encounter Details Date Type Department Care Team (Latest Contact Info) Description 01/04/2024 Travel Social History Tobacco Use Types Packs/Day [...] How often do you attend chur or gnosticism services? More than 4 times [...] Patient Health Questionnaire-2 Score 0 12/08/2023 [facility] Health - Occupational [...] place to sleep or slept in a retirement (including now)? No 08/26/2022 Comments No Sex [...] Info) Description 04/14/2024 2:00 PM DIRECTOR OF SALES SUPPORT Office Visit [facility] Multispecialty Care - [facility] [address] [facility], [address] [place] [address] Julio Pulido MD [address] [place] [address] documented as of this encounter Goals Goal Patient Goal Type Associated Problems Recent Progress Patient-Stated? Author Health - patient able to perform ADLs independently General On track(2023 9:49 AM CDT) Dianne Corona RN Note: 12/17/23: Patient stated she is independent with ASL's. Establish Plan for Symptom Monitoring-CHF General On track(2023 11:36 AM DIRECTOR OF SALES SUPPORT) Dianne Corona RN Note: Patient will recognize [...] General On track(2023 11:36 AM DIRECTOR OF SALES SUPPORT) Dianne Corona RN Note: Patient will recognize [...] General On track(2023 4:33 PM DIRECTOR OF SALES SUPPORT) Dianne Corona RN Note: Patient will manage [...] General On track(2023 4:33 PM DIRECTOR OF SALES SUPPORT) Dianne Corona, RN Note: Patient will monitor [...] documented as of this encounter Care Teams Pile Driver Engineer Relationship Specialty Start Date End Date Sanjeev Webster DO [address] [place] [id number] PCP - General FAMILY PRACTICE 09/25/20 Dianne Johnson, RN [address] [place] [address] Rehab Therapy Manager (Ambulatory) REGISTERED NURSE 08/14/20 documented as of this encounter
--- OUTSIDE RECORDS SUMMARY | 2024-03-15 00:48 | XMS_ITS | Encounter Summary ---
Author Organization [facility] Address [facility]6 [facility] [place] [address] [place] [address] Care Team Providers Care Drupal Architect Name Role Phone Dianne Johnson RN Unavailable [phone] Sanjeev Webster DO Primary Care Provider + Encounter Details Date Type Department Care Team (Latest Contact Info) Description 01/08/2024 - 01/08/2024 11:59 PM CDT Hospital Encounter [facility] [address] [place] [address] Sanjeev Webster DO [address] [place] [address] Discharge Disposition: Home or Self Care (Routine Discharge) Social History Tobacco Use Types Packs/Day Years [...] Call RN Active documented in this encounter Medications at Time of Discharge acetaminophen (TYLENOL) 500 MG tablet Take 1 tablet (500 mg total) by mouth daily as needed. No more then 2500 mg per day. 08/17/2020 albuterol sulfate HFA 108 (90 Base) MCG/ACT inhalerIndications:C hronic obstructive pulmonary disease, unspecified COPD type ([facility]) INHALE 2 PUFFS BY MOUTH EVERY 6 HOURS NEEDED FOR WHEEZING 18 g 5 11/19/2022 alendronate (FOSAMAX) 35 MG tablet Take 1 tablet (35 mg total) by mouth every 7 days. B Complex Cap capsule Take 1 capsule by mouth daily. Blood Glucose Monitoring Suppl (ONE TOUCH ULTRA 2) w/Device KitIndications:Type 2 diabetes mellitus with stage 3b chronic kidney disease, without long-term current use of insulin ([facility]) 1 Device by Does not apply route daily. 1 kit 12/26/2022 Cholecalciferol (VITAMIN D3) 25 MCG (1000 UT) Cap Take 1 capsule (1,000 Units total) by mouth daily. cinacalcet (SENSIPAR) 30 MG tablet Take 0.5 tablets (15 mg total) by mouth daily. 07/02/2023 ferrous sulfate, 65 mg elemental, 325 (65 FE) MG tablet Take 1 tablet (325 mg total) by mouth daily with breakfast. Glucose Blood (BLOOD GLUCOSE TEST STRIPS) StripIndications:Typ e 2 diabetes mellitus with stage 3b chronic kidney disease, without long-term current use of insulin ([facility]) 1 Device by Does not apply route daily. 100 strip 3 12/26/2022 Lancets (ONETOUCH ULTRASOFT) lancetsIndications:T ype 2 diabetes mellitus with stage 3b chronic kidney disease, without long-term current use of insulin ([facility]) 1 each by Other route as needed. Use as instructed 100 each 3 12/26/2022 methIMAzole (TAPAZOLE) 5 MG tablet Take 1 tablet (5 mg total) by mouth daily. 05/04/2023 metoprolol succinate ER (TOPROL-XL) 25 MG 24 hr tabletIndications:At rial fibrillation with RVR (CMS/HCC HHS/HCC) Take 1 tablet (25 mg total) by mouth daily. 90 tablet 11/25/2023 omeprazole (PRILOSEC) 40 MG capsuleIndications:G ERD (gastroesophageal reflux disease) Take 1 capsule by mouth once daily 90 capsule 11/24/2023 potassium chloride CR (K-TAB) 10 MEQ Tab CR tabletIndications:Hy pokalemia Take 1 tablet by mouth once daily 90 tablet 1 11/24/2023 Semaglutide (OZEMPIC, 0.25 OR 0.5 MG/DOSE, SC) Inject 0.5 mg into the skin once a week. simvastatin (ZOCOR) 10 MG tabletIndications:Hy perlipidemia associated with type 2 diabetes mellitus (CMS/HCC HHS/HCC) Take 1 tablet (10 mg total) by mouth nightly at bedtime. 90 tablet 3 02/16/2023 venlafaxine XR (EFFEXOR-XR) 150 MG 24 hr capsuleIndications:Tiny bateman mild episode of major depressive disorder without prior episode (CMS/HCC) Take 1 capsule by mouth once daily 90 capsule 12/28/2023 vitamin B-12 (CYANOCOBALAMIN) (CYANOCOBALAMIN) 1000 mcg tablet Take 1 tablet (1,000 mcg total) by mouth daily. 08/26/2023 NICOLAS MISC, DME,Indications:Acut e gout of right foot, unspecified cause 1 Device by Does not apply route as needed. 1 Device 12/21/2023 12/21/19 warfarin (COUMADIN) 1 MG tabletIndications:H/ O mechanical aortic valve replacement,Chronic anticoagulation Take 1 tablet (1 mg total) by mouth daily. 30 tablet 11/25/2023 warfarin (COUMADIN) 2 MG tabletIndications:Ch ronic anticoagulation Take 1 tablet (2 mg total) by mouth daily. 30 tablet 1 07/08/2023 warfarin (COUMADIN) 6 MG tabletIndications:Ch ronic anticoagulation Take 1 tablet (6 mg total) by mouth daily. 90 tablet 10/01/2023 ALPRAZolam (XANAX) 0.5 MG tabletIndications:An xiety TAKE 1/2 (ONE-HALF) TABLET BY MOUTH NIGHTLY NEEDED FOR SLEEP 15 tablet 12/29/2023 02/02/20 24 colchicine 0.6 MG tabletIndications:Ac hoh gout of left foot, unspecified cause Day 1: 1.2 mg at the first sign of flare, followed by 0.6 mg after 1 hour. Day 2 and after: take 0.6 mg once daily until resolves 30 tablet 01/01/2024 02/01/20 24 denosumab (PROLIA) 60 MG/ML injection 11/13/2023 24 doxycycline hyclate (VIBRAMYCIN) 100 MG capsuleIndications:U pper respiratory tract infection, unspecified type Take 1 capsule (100 mg total) by mouth 2 (two) times daily for 10 days. 20 capsule 01/08/2024 01/18/20 24 furosemide (LASIX) 20 MG tabletIndications:Hy pertensive heart disease with congestive heart failure (CMS/HCC HHS/HCC) Take 1 tablet by mouth once daily 30 tablet 1 11/24/2023 02/17/20 24 gabapentin (NEURONTIN) 300 MG capsuleIndications:C hronic low back pain, unspecified back pain laterality, unspecified whether sciatica present take 1 capsule by mouth three times daily 270 capsule 08/27/2023 01/19/20 24 HYDROcodone-acetamin ophen (NORCO) 5-325 MG tabletIndications:Ch ronic Pain Take 1-2 tablets by mouth every 6 (six) hours as needed for Pain. Indications: Chronic Pain 60 tablet 01/08/2024 02/29/20 24 predniSONE (DELTASONE) 10 mg tablet Taper prednisone from 50 mg; 15 days 40 mg daily for 3 days 40 mg daily for 3 days 30 mg daily for 3 days 20 mg daily for 3 days 10 mg daily for 3 days 12/16/2023 02/29/20 24 warfarin (COUMADIN) 5 MG tabletIndications:Lo ng term (current) use of anticoagulants,H/O mechanical aortic valve replacement Take 1 tablet by mouth once daily 30 tablet 1 11/24/2023 02/17/20 24 documented as of this encounter Plan of Treatment Upcoming Encounters Date Type Department Care Team (Late st Contact Info) Description 04/14/2024 2:00 PM PRODUCE MANAGER Office Visit [facility] Multispecialty Care - [facility] [address] [place] [address] Julio Pulido MD [address] [place] [address] documented as of this encounter Goals Goal Patient Goal Type Associated Problems Recent Progress Patient-Stated? Author Health - patient able to perform ADLs independently General On track(2023 9:49 AM CDT) Dianne Corona, DALE Note: 12/17/23: Patient stated she is independent with ASL's. Establish Plan for Symptom Monitoring-CHF General On track(2023 11:36 AM PRODUCE MANAGER) Dianne Corona, RN Note: Patient will recognize [...] Symptom Monitoring-COPD General On track(2023 11:36 AM PRODUCE MANAGER) Dianne Corona, RN Note: Patient will recognize [...] Symptom Monitoring-DM General On track(2023 4:33 PM PRODUCE MANAGER) Dianne Corona RN Note: Patient will manage [...] Symptom Monitoring-HTN General On track(2023 4:33 PM PRODUCE MANAGER) Dianne Corona RN Note: Patient will monitor [...] documented as of this encounter Care Teams Drupal Architect Relationship Specialty Start Date End Date Sanjeev [place] DO [address] [place] [address] PCP - General FAMILY PRACTICE 09/25/20 Dianne Johnson RN [address] [place] [address] Blue Leather Sorter (Ambulatory) REGISTERED NURSE 08/14/20 documented as of this encounter
--- OUTSIDE RECORDS SUMMARY | 2024-03-15 00:48 | XMS_ITS | Encounter Summary ---
Author Organization [facility] Address [facility]6 [facility] [place] [address] [place] [address] Care Team Providers Care Search Strategist Name Role Phone Dianne Johnson RN Unavailable [phone] Sanjeev [place] DO Primary Care Provider + Reason for Visit * Reason Comments Anticoagulation Encounter Details Date Type Department Care Team (Late st Contact Info) Description 01/15/2024 10:40 AM KNIFE CUTTER Allied Health/Nurse Visit [facility] Medical Group Family & Internal Medicine [place] [address] [place] [address] Sanjeev [place] DO [facility] [place] [address] Anticoagulation Social History Tobacco Use [...] often do you attend chur ch or hindu services? More than 4 times per year 08/26/2022 Do you belong to any clubs o r organizations such as christian groups, unions, fraternal or athletic groups, or [...] Recorded Patient Health Questionnaire-2 Score 0 12/08/2023 [facility] - Occupational [...] st Contact Info) Description 04/14/2024 2:00 PM KNIFE CUTTER Office Visit [facility] Medical Group Multispecialty Care - [facility] [address] [facility], [address] [place] [id number] Julio Pulido MD 3 [place] [address] documented as of this encounter Goals Goal Patient Goal Type Associated Problems Recent Progress Patient-Stated? Author Health - patient able to perform ADLs independently General On track(2023 9:49 AM CDT) Dianne Corona RN Note: 12/17/23: Patient stated she is independent with ASL's. Establish Plan for Symptom Monitoring-CHF General On track(2023 11:36 AM KNIFE CUTTER) Dianne Corona RN Note: Patient will recognize [...] Symptom Monitoring-COPD General On track(2023 11:36 AM KNIFE CUTTER) Dianne Corona RN Note: Patient will recognize [...] Symptom Monitoring-DM General On track(2023 4:33 PM KNIFE CUTTER) Dianne Corona RN Note: Patient will manage [...] Symptom Monitoring-HTN General On track(2023 4:33 PM KNIFE CUTTER) Dianne Corona RN Note: Patient will monitor [...] Date/Time Associated Diagnosis Comments COLLECT.CAPILLARY (FNGR,HEEL,EAR) Routine 01/15/2024 10:34 AM KNIFE CUTTER custodial (current) use of anticoagulants PROTHROMBIN TIME, FINGERSTICK Routine 01/15/2024 custodial (current) use of anticoagulants documented in this encounter Results * PROTIME/INR, FINGERSTICK (01/15/2024) INR WHOLE BLOOD 2.50 MG-S [facility] 01/15/2024 us Sanjeev Webster DO LABORATORY Final Re sult [facility] [address] [place] [address], documented in this encounter Visit Diagnoses Diagnosis oysterman (current) use of anticoagulants- Primary Long-term (current) use of anticoagulants documented in this encounter Additional Health Concerns Assessment Noted Time PHQ-9 Depression Total Score: 13 023 3:56 PM CDT documented as of this encounter Care Teams Search Strategist Relationship Specialty Start Date End Date Sanjeev [place] DO [address] [place] [address] PCP - General FAMILY PRACTICE 09/25/20 Dianne Johnson, RN [address] [place] [address] Marine Equipment Engineer (Ambulatory) REGISTERED NURSE 08/14/20 documented as of this encounter
--- OUTSIDE RECORDS SUMMARY | 2024-03-15 00:48 | XMS_ITS | Encounter Summary ---
Author Organization [facility] Address [facility]6 [facility] [place] [address] [place] [address] Care Team Providers Care Supervisor Dials Name Role Phone Dianne Johnson RN Unavailable [phone] Sanjeev [place] DO Primary Care Provider + Encounter Details Date Type Department Care Team (Latest Contact Info) Description 12/28/2023 Travel Social History Tobacco Use Types Packs/Day [...] How often do you attend chur or hinduism services? More than 4 times per year [...] place to sleep or slept in a skilled nursing (including now)? No 08/26/2022 Comments No Sex [...] st Contact Info) Description 04/14/2024 2:00 PM AUTO REFINISHER Office Visit [facility] Medical Group Multispecialty Care - [facility] [address] [facility], [address] [place] [address] Julio Pulido MD 3 [place] [address] documented as of this encounter Goals Goal Patient Goal Type Associated Problems Recent Progress Patient-Stated? Author Health - patient able to perform ADLs independently General On track(2023 9:49 AM CDT) Dianne Corona RN Note: 12/17/23: Patient stated she is independent with ASL's. Establish Plan for Symptom Monitoring-CHF General On track(2023 11:36 AM AUTO REFINISHER) Dianne Corona RN Note: Patient will recognize [...] Symptom Monitoring-COPD General On track(2023 11:36 AM AUTO REFINISHER) Dianne Corona RN Note: Patient will recognize [...] Symptom Monitoring-DM General On track(2023 4:33 PM AUTO REFINISHER) Dianne Corona RN Note: Patient will manage [...] Symptom Monitoring-HTN General On track(2023 4:33 PM AUTO REFINISHER) Dianne Corona, RN Note: Patient will monitor [...] documented as of this encounter Care Teams Supervisor Dials Relationship Specialty Start Date End Date Sanjeev [place] DO [address] [place] [address] PCP - General FAMILY PRACTICE 09/25/20 Dianne Johnson, RN [address] [place] [address] Fruit Shipper (Ambulatory) REGISTERED NURSE 08/14/20 documented as of this encounter
--- OUTSIDE RECORDS SUMMARY | 2024-03-15 00:49 | XMS_ITS | Encounter Summary ---
Author Organization [facility] Address [facility]6 [facility] [place] [address] [place] [address] Care Team Providers Care Pediatric Physician Name Role Phone Dianne Johnson RN Unavailable [phone] Sanjeev Webster DO Primary Care Provider + Reason for Visit * Reason Onset Date Comments Care Management 11/26/2023 Encounter Details Date Type Department Care Team (Late st Contact Info) Description 11/26/2023 Patient Outreach [facility] Medical Group Family & Internal Medicine [address] [address] Dianne Johnson, RN [address] [place] [address] Care Management Social History Tobacco [...] Answer Date Recorded Patient Health Questionnaire-2 Score 1 08/06/2023 [facility] - Occupational [...] Progress Notes * Dianne Johnson RN - 11/26/2023 10:32 AM CDT Gave patient phone number to ELADIO ([phone]) per Bebe BHATTI) to ask about getting her DIL paid asshe takes care of her medications and helps her. Patient thanked for calling. documented in this encounter Plan of Treatment Upcoming Encounters Date Type Department Care Team (Late st Contact Info) Description 04/14/2024 2:00 PM HEALTH OCCUPATIONS TEACHER Office Visit [facility] Medical Group Multispecialty Care - [facility] [address] [facility], [address] [place] [phone] Julio Pulido MD [address] [place] [address] documented as of this encounter Goals Goal Patient Goal Type Associated Problems Recent Progress Patient-Stated? Author Health - patient able to perform ADLs independently General On track(2023 9:49 AM CDT) Dianne Corona RN Note: 12/17/23: Patient stated she is independent with ASL's. Establish Plan for Symptom Monitoring-CHF General On track(2023 11:36 AM HEALTH OCCUPATIONS TEACHER) Dianne Corona RN Note: Patient will recognize [...] Symptom Monitoring-COPD General On track(2023 11:36 AM HEALTH OCCUPATIONS TEACHER) Dianne Corona RN Note: Patient will recognize [...] Symptom Monitoring-DM General On track(2023 4:33 PM HEALTH OCCUPATIONS TEACHER) Dianne Corona RN Note: Patient will manage [...] Symptom Monitoring-HTN General On track(2023 4:33 PM HEALTH OCCUPATIONS TEACHER) Dianne Corona RN Note: Patient will monitor [...] documented as of this encounter Care Teams Pediatric Physician Relationship Specialty Start Date End Date Sanjeev [place] DO [address] [place] [address] PCP - General FAMILY PRACTICE 09/25/20 Dianne Johnson, RN [address] [place] [address] Machine Bunch Maker (Ambulatory) REGISTERED NURSE 08/14/20 documented as of this encounter
--- OUTSIDE RECORDS SUMMARY | 2024-03-15 00:49 | XMS_ITS | Encounter Summary ---
Author Organization [facility] Address [facility]6 [facility] [place] [address] [place] [address] Care Team Providers Care Traffic Operations Engineer Name Role Phone Dianne Johnson RN Unavailable [phone] Sanjeev Webster DO Primary Care Provider + Encounter Details Date Type Department Care Team (Latest Contact Info) Description 12/08/2023 Scan HEALTH INFO SRVCS Scanned, Doc Med [...] often do you attend chur ch or synagogue services? More than 4 times per year 08/26/2022 Do you belong to any clubs o r organizations such as tenriism groups, unions, fraternal or athletic groups, or [...] Questionnaire-2 Score 0 12/08/2023 [facility] Occupat ional Health - Occupational [...] st Contact Info) Description 04/14/2024 2:00 PM DISTRICT LOSS PREVENTION MANAGER Office Visit [facility] Medical Group Multispecialty Care - [facility] [address] [facility], [address] [place] [address] Julio Pulido MD [address] [place] [address] documented as of this encounter Goals Goal Patient Goal Type Associated Problems Recent Progress Patient-Stated? Author Health - patient able to perform ADLs independently General On track(2023 9:49 AM CDT) Dianne Corona RN Note: 12/17/23: Patient stated she is independent with ASL's. Establish Plan for Symptom Monitoring-CHF General On track(2023 11:36 AM DISTRICT LOSS PREVENTION MANAGER) Dianne Corona RN Note: Patient will recognize [...] Symptom Monitoring-COPD General On track(2023 11:36 AM DISTRICT LOSS PREVENTION MANAGER) Dianne Corona RN Note: Patient will recognize [...] Symptom Monitoring-DM General On track(2023 4:33 PM DISTRICT LOSS PREVENTION MANAGER) Dianne Corona, RN Note: Patient will manage [...] Symptom Monitoring-HTN General On track(2023 4:33 PM DISTRICT LOSS PREVENTION MANAGER) Dianne Corona, RN Note: Patient will monitor [...] documented as of this encounter Care Teams Traffic Operations Engineer Relationship Specialty Start Date End Date Sanjeev Webster DO [address] [place] [address] PCP - General FAMILY PRACTICE 09/25/20 Dianne Johnson, RN [address] [place] [address] Electric Shipyard Operator (Ambulatory) REGISTERED NURSE 08/14/20 documented as of this encounter
--- OUTSIDE RECORDS SUMMARY | 2024-03-15 00:49 | XMS_ITS | Encounter Summary ---
Author Organization [facility] Address [facility]6 [facility] [place] [address] [place] [address] Care Team Providers Care Drag Sawyer Name Role Phone Dianne Johnson RN Unavailable [phone] Sanjeev Webster DO Primary Care Provider + Encounter Details Date Type Department Care Team (Latest Contact Info) Description 12/16/2023 Scan HEALTH INFO SRVCS Scanned, Doc [...] often do you attend chur ch or zoroastrianism services? More than 4 times per year 08/26/2022 Do you belong to any clubs o r organizations such as pentecostal groups, unions, fraternal or athletic groups, or [...] Patient Health Questionnaire-2 Score 0 12/08/2023 [facility] of Occupat ional Health - Occupational [...] st Contact Info) Description 04/14/2024 2:00 PM CRATE MAKER Office Visit [facility] Medical Group Multispecialty Care - [facility] 3 [facility], [address] [place] [address] Julio Pulido MD 3 [place] [address] documented as of this encounter Goals Goal Patient Goal Type Associated Problems Recent Progress Patient-Stated? Author Health - patient able to perform ADLs independently General On track(2023 9:49 AM CDT) Dianne Corona RN Note: 12/17/23: Patient stated she is independent with ASL's. Establish Plan for Symptom Monitoring-CHF General On track(2023 11:36 AM CRATE MAKER) Dianne Corona RN Note: Patient will recognize [...] Symptom Monitoring-COPD General On track(2023 11:36 AM CRATE MAKER) Dianne Corona RN Note: Patient will recognize [...] Symptom Monitoring-DM General On track(2023 4:33 PM CRATE MAKER) Dianne Corona, RN Note: Patient will manage [...] Symptom Monitoring-HTN General On track(2023 4:33 PM CRATE MAKER) Dianne Corona, RN Note: Patient will monitor [...] documented as of this encounter Care Teams Drag Sawyer Relationship Specialty Start Date End Date Sanjeev Webster DO [address] [place] [address] PCP - General FAMILY PRACTICE 09/25/20 Dianne Johnson RN [address] [place] [address] Bobbin Inspector (Ambulatory) REGISTERED NURSE 6/8/21 documented as of this encounter
--- OUTSIDE RECORDS SUMMARY | 2024-03-15 00:49 | XMS_ITS | Encounter Summary ---
Author Organization [facility] Address [facility]6 [facility] [place] [address] [place] [address] Care Team Providers Care Solar Lab Technician Name Role Phone Dianne Johnson RN Unavailable [phone] Sanjeev Webster DO Primary Care Provider + Reason for Visit * Reason Comments Image (SCAN) CT (SCAN) Encounter Details Date Type Department Care Team (Late st Contact Info) Description 12/12/2023 Scan HEALTH INFO SRVCS Scanned, Doc Med Group Image (SCAN); CT (SCAN) Social History Tobacco Use Types Packs/Day Years [...] often do you attend chur ch or caodaism services? More than 4 times per year 08/26/2022 Do you belong to any clubs o r organizations such as voodoo groups, unions, fraternal or athletic groups, or [...] Recorded Patient Health Questionnaire-2 Score 0 12/08/2023 [facility] of Occupat ional Health - Occupational [...] st Contact Info) Description 04/14/2024 2:00 PM PERSONALIZED LIVING MANAGER Office Visit [facility] Medical Group Multispecialty Care - [facility] 3 [facility], [address] [place] [address] Julio Pulido MD 3 [place] [address] documented as of this encounter Goals Goal Patient Goal Type Associated Problems Recent Progress Patient-Stated? Author Health - patient able to perform ADLs independently General On track(2023 9:49 AM CDT) Dianne Corona RN Note: 12/17/23: Patient stated she is independent with ASL's. Establish Plan for Symptom Monitoring-CHF General On track(2023 11:36 AM PERSONALIZED LIVING MANAGER) Dainne Corona RN Note: Patient will recognize symptoms [...] Symptom Monitoring-COPD General On track(2023 11:36 AM PERSONALIZED LIVING MANAGER) Dianne Corona RN Note: Patient will [...] Symptom Monitoring-DM General On track(2023 4:33 PM PERSONALIZED LIVING MANAGER) Dianne Corona RN Note: Patient will [...] Symptom Monitoring-HTN General On track(2023 4:33 PM PERSONALIZED LIVING MANAGER) Dianne Corona, DALE Note: Patient will monitor B/P several times per week , record readings and report to physician or CC if B/P consistently >130/80 Take your medications as prescribed. Follow up with your provider as scheduled. Take your blood pressure at least several times a week if able. documented as of this encounter Procedures Procedure Name Priority Date/Time Associated Diagnosis Comments CARDIAC CT 12/12/2023 CT GENERIC 12/12/2023 IMAGE GENERIC 12/12/2023 IMAGE GENERIC 12/12/2023 documented in this encounter Results * CT GENERIC (12/12/2023) Anatomical Region Laterality Modality Other 12/12/2023 us Doc Med Group Scanned SCANNING Final Resu lt * IMAGE GENERIC (12/12/2023) Anatomical Region Laterality Modality Other 12/12/2023 us Doc Med Group Scanned SCANNING Final Resu lt * CARDIAC CT (12/12/2023) Anatomical Region Laterality Modality Other 12/12/2023 us Doc Med Group Scanned SCANNING Final Resu lt * IMAGE GENERIC (12/12/2023) Anatomical Region Laterality Modality Other 12/12/2023 us [facility] Scanned SCANNING Final Resu lt documented in this encounter Visit Diagnoses Not on filedocumented in this encounter Additional Health Concerns Assessment Noted Time PHQ-9 Depression Total Score: 13 023 3:56 PM CDT documented as of this encounter Care Teams Solar Lab Technician Relationship Specialty Start Date End Date Sanjeev Webster DO [address] [place] [address] PCP - General FAMILY PRACTICE 09/25/20 Dianne Johnson, RN [address] [place] [address] Senior Premium Auditor (Ambulatory) REGISTERED NURSE 08/14/20 documented as of this encounter
--- OUTSIDE RECORDS SUMMARY | 2024-03-15 00:49 | XMS_ITS | Encounter Summary ---
Author Organization [facility] Address Formerly [facility] [place] [address] [place] [address] Care Team Providers Care Fence Gate Assembler Name Role Phone Dianne Johnson RN Unavailable [phone] Sanjeev Webster DO Primary Care Provider + Reason for Visit * Reason Onset Date Comments Care Management 12/15/2023 Encounter Details Date Type Department Care Team (Late st Contact Info) Description 12/15/2023 Patient Outreach [facility] Family & Internal Medicine [address] [id number] Dianne Johnson, RN [address] [place] [address] Care Management Social History Tobacco [...] How often do you attend chur or congregational services? More than 4 times per year [...] Progress Notes * Dianne Johnson RN - 12/15/2023 11:54 AM CDT Contacted patient today. Stated she is admitted to [facility] since Thursday. Stated she canhardly put pressure on her right foot. They took multiple pictures and told her she has gout. Stated it was recommended she go into rehab until she gets better. Patient stated she thinks she needs togo to rehab but afraid she will get her social security check taken away from her. Stated she has bills to pay and she heard it takes 1 to 2 months to straighten it out. She is scheduled to see tomorrow and needs this appointment rescheduled. [facility] and if a SW can talk to her about her SS check and Bebe LUNA with [facility]. CC will reschedule appointment with . Patient appreciates it. Spoke to Bebe BHATTI) with [facility]. She stated for the st 20 days it's covered at 100 %. Stating after the 20 days is up then patient may be responsible for 20 % and this may be taking out of her SS check. Contacted nurse Mcfarlane at [facility]. Informed of patient's concerns about rehab. Stated valerie LUNA at hospital explain everything to patient. Maeve stated patient will not be D/C from hospital today. Contacted 's office and spoke to Kianna. Rescheduled appointment with for 01/11/24 at 10:15 am. Contacted patient about the above and she verbalizes understanding. Patient stated she only has a few pens left of Ozempic and she will be out. She is wanting to know how to get more through [facility]. * Yenifer Ingram MA - 12/15/2023 11:54 AM CDT Refill is being sent to [facility] * Sanjeev Webster DO - 12/15/2023 11:54 AM CDT OK to refill Ozempic. documented in this encounter Plan of Treatment Upcoming Encounters Date Type Department Care Team (Late st Contact Info) Description 04/14/2024 2:00 PM PLUMBER SUPERVISOR Office Visit [facility] Multispecialty Care - [facility] [address] [facility], [address] [place] [id number] Julio Pulido MD [address] [place] [address] documented as of this encounter Goals Goal Patient Goal Type Associated Problems Recent Progress Patient-Stated? Author Health - patient able to perform ADLs independently General On track(2023 9:49 AM CDT) Dianne Corona RN Note: 12/17/23: Patient stated she is independent with ASL's. Establish Plan for Symptom Monitoring-CHF General On track(2023 11:36 AM PLUMBER SUPERVISOR) Dianne Corona RN Note: Patient will [...] Symptom Monitoring-COPD General On track(2023 11:36 AM PLUMBER SUPERVISOR) Dianne Corona RN Note: Patient will [...] Symptom Monitoring-DM General On track(2023 4:33 PM PLUMBER SUPERVISOR) Dianne Corona RN Note: Patient will [...] Symptom Monitoring-HTN General On track(2023 4:33 PM PLUMBER SUPERVISOR) Dianne Corona RN Note: Patient will monitor [...] documented as of this encounter Care Teams Fence Gate Assembler Relationship Specialty Start Date End Date Sanjeev Webster DO [address] [place] [id number] PCP - General FAMILY PRACTICE 09/25/20 Dianne Johnson, RN [address] [place] [address] Home Health Aid (Ambulatory) REGISTERED NURSE 08/14/20 documented as of this encounter
--- OUTSIDE RECORDS SUMMARY | 2024-03-15 00:49 | XMS_ITS | Encounter Summary ---
Author Organization [facility] Address [facility] [place] [address] [place] [address] Care Team Providers Care Handkerchief Presser Name Role Phone Dianne Johnson RN Unavailable [phone] Sanjeev Webster DO Primary Care Provider + Reason for Visit * Reason Comments Atrial Fibrillation 2 month follow up. Encounter Details Date Type Department Care Team (Late st Contact Info) Description 12/08/2023 1:00 PM CDT Office Visit [facility] Medical Group Family & Internal Medicine [id number] [place] [address] Sanjeev Webster DO [facility] [place] [address] Atrial Fibrillation (2 month follow up. ) Social History Tobacco Use Types Packs/Day [...] Patient Health Questionnaire-2 Score 0 12/08/2023 [facility] - Occupational Stress Questionnaire Answer Date [...] Sign Reading Time Taken Comments Blood Pressure 130/70 12/08/2023 1:14 PM CDT Pulse 68 12/08/2023 1:14 PM CDT Temperature 36.2 ??C (97.2 ??F) 12/08/2023 1:14 PM CD T Respiratory Rate 16 12/08/2023 1:14 PM CDT Oxygen Saturation 97% 12/08/2023 1:14 PM CDT Inhaled Oxygen Concentration - - Weight 82.6 kg (182 lb) 12/08/2023 1:14 PM CDT Height 165.1 cm (5' 5 ) 12/08/2023 1:14 PM CDT Body Mass Index 30.29 12/08/2023 1:14 PM CDT documented in this encounter Functional [...] in this encounter Progress Notes * Sanjeev Webster DO - 12/08/2023 1:00 PM CDT Annual Preventive Visit Reason for Visit: Radha is an 78-year-old female here for Atrial Fibrillation (2 month follow up. ) Patient Care Team: Sanjeev Webster DO as PCP - General (FAMILY PRACTICE) Dianne Johnson RN as Varnish Remover (Ambulatory) (REGISTERED NURSE) History of Present Illness: Pt has multiple cardiac issues for which she follows with cardiology in [place]. These include mechanical aortic valve replacement with chronic anticoagulation, atrial fibrillation, CAD without angina, and HFpEF. Pt has a mechanical [facility]. Lj aortic valve. She is on warfarin; we are managing this.She is no longer on amiodarone due to hyperthyroidism. Pt has been stable since hospitalization in October. Pt is on warfarin, simvastatin, furosemide, and metoprolol. Patient has Type 2 Diabetes. Patient has had diabetes for multiple years. Medications include semaglutide specifically for lowering blood sugars. BS logs range: doesn't check. Patient's weight has not changed. Pt has neuropathy and PAD, both of which are stable. Pt is on gabapentin for neuropathy. No claudication at this time. HGB A1C Date Value Ref Range Status 11/19/2023 6.8 % Final 08/06/2023 6.5 % Final 01/12/2023 6.2 % Final 07/07/2022 6.6 % Final MICROALBUMIN (U) Date Value Ref Range Status 08/14/2023 3.9 <20 MG/L Final Pt is following with Dr. Phillips with hematology due to macrocytic anemia with borderline iron. 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 Patient presents for follow-up on essential hypertension. Patient has had hypertension for multipleyears. Her levels are controlled today. Current medications include metoprolol and furosemide. Patient's blood pressure is stable today. No side effects noted from medications. Pt is noted to have ass ociated T2DM and CKD stage 3b. Patient presents for major depressive disorder. Pt has had this for multiple years. Concurrent psychiatric conditions include anxiety. Pt is currently taking venlafaxine and Xanax prn. Pt does not see counseling. Pt's symptoms are well controlled. Patient would like to continue current medications as prescribed. Pt has secondary hyperparathyroidism and osteoporosis, confirmed on DEXA from 07/15/21. Pt is now seeing Dr. Mattson for this. She was recommended to start Prolia. Pt is not interested in Prolia though on further discussion today. She is treating the secondary hyperparathyroidism with cincalet and is not wanting surgery. She does not want to see nephrology. Pt has emphysema. She is asymptomatic. She uses albuterol as needed. Her previous PFT showed pattern consistent with COPD. Pt has polymyalgia rheumatica. Pt is not currently on specific medication for this; she does have chronic pain issues which are treated with intermittent hydorcodone as pt is not able to take other meds. She is stable again today. Patient presents for follow-up on HLD. Patient has had HLD for multiple years. Pt has associated T2DM. Current medications include atorvastatin. Current side effects include none. Patient does not need labs drawn today. Pt has been evaluated for cirrhosis previously based upon imaging 12/13/21. Her lab testing has been unremarkable for this. Pt has wanted to monitor historically given her lack of symptoms at this time. Pt has vascular dementia and saccular aneurysm. Pt's dementia is stable. Her aneurysm has also beenstable in size and is followed by neurosurgery Dr. Pulido. RADAMES Review of Systems Constitutional: Negative for fever. Respiratory: Negative for shortness of breath. Cardiovascular: Negative for chest pain. Gastrointestinal: Negative for abdominal pain. Skin: Negative for rash. Medications: Current Outpatient Medications Medication Sig Dispense Refill acetaminophen (TYLENOL) 500 MG tablet Take 1 tablet (500 mg total) by mouth daily as needed. No more then 2500 mg per day. albuterol sulfate HFA 108 (90 Base) MCG/ACT inhaler INHALE 2 PUFFS BY MOUTH EVERY 6 HOURS NEEDEDFOR WHEEZING 18 g 5 ALPRAZolam (XANAX) 0.5 MG tablet TAKE 1/2 [...] No current facility-administered medications for this visit. Fall Risk 08/06/2023 11:36 AM 12/08/2023 1:28 PM Ambulatory Fall Risk Assessment One or More Falls Yes No Feels Unsteady Yes Yes Worried About Falling No Yes PHQ2/PHQ9 12/23/2021 11:48 AM 01/07/2022 8:52 AM 04/17/2022 11:11 AM 07/08/2022 7:58 AM 12/11/2022 3:56 PM 08/06/2023 11:36 AM 12/08/2023 1:28 PM PHQ2/PHQ 9 DEPRESSION SCREEN QUESTIONAIRE Little interest or pleasure in doing things Almost all Almost all Almost all Several days Not at all Feeling down, depressed, or hopeless Not at all Not at all Almost all Not at all Not at all Patient Health Questionnaire-2 Score 3 3 6 1 0 Trouble falling or staying asleep, or sleeping too much Almost all Feeling tired or having little energy Almost all Poor appetite or overeating Several days Feeling bad about yourself - or that you are a failure or have let yourself or your family down Notat all Trouble concentrating on things, such as reading the newspaper or watching television Not at all Moving or speaking so slowly that other people could have noticed? Or the opposite - being so fidgety or restless that you have been moving around a lot more than usual. Not at all Thoughts that you would be better off or hurting yourself in some way Not at all Patient Health Questionnaire-9 Score 13 How difficult have these problems made it for you to do your work, take care of things at home, or get along with other people? Not difficult at all LITTLE INTEREST OR PLEASURE IN DOING THINGS 1-Several Days 1-Several Days FEELING DOWN, DEPRESSSED,OR HOPELESS 1-Several Days 0-Not at All PHQ2 DEPRESSION TOTAL SCORE 2 1 TROUBLE FALLING OR STAYING ASLEEP OR SLEEPING TOO MUCH 0-Not at All FEELING TIRED OR HAVING LITTLE ENERGY 1-Several Days POOR APPETITE OR OVEREATING 0-Not at All FEELING BAD ABOUT YOURSELF 0-Not at All TROUBLE CONCENTRATING ON THINGS 0-Not at All MOVING OR SPEAKING SO SLOWLY THAT OTHER PEOPLE COULD HAVE NOTICED 0-Not at All THOUGHTS THAT YOU WOULD BE BETTER OFF 0-Not at All DEPRESSION SCREENING TOTAL SCORE 3 IF YOU CHECKED OFF ANY PROBLEMS Not difficult at all Health Maintenance Topic Date Due Annual Medicare [...] RSV Immunizations Under 20 Months Aged Out History 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 Anxiety Atrial fibrillation with rapid ventricular response (CMS/[facility]) 08/22/2020 Atrial flutter ([facility]) Cataract Chronic anticoagulation due to mechanical heart valve Chronic pain Diabetes mellitus ([facility]) H/O mechanical aortic valve replacement 2003 Hypertension Kidney stone 02/03/2017 On amiodarone therapy 05/21/2021 Past Surgical History: Procedure Laterality Date REPAIR HEART WOUND Family History Problem Relation Name Age of Onset Heart Father Diabetes Father Heart Mother Social History Socioeconomic History Marital status: Number of children: 4 Social History Tobacco Use Smoking status: Never Passive exposure: Past Smokeless tobacco: Never Tobacco comments: non smoker Substance Use Topics Alcohol use: Not Currently Exam Physical Exam Vitals and nursing note reviewed. Constitutional: General: She is not in acute distress. Appearance: Normal appearance. HENT: Head: Normocephalic and atraumatic. Right Ear: Tympanic membrane, external ear and ear canal normal. Left Ear: Tympanic membrane, external ear and ear canal normal. Eyes: General: No scleral icterus. Conjunctiva/sclera: Conjunctivae normal. Cardiovascular: Rate and Rhythm: Normal rate and regular rhythm. Pulses: Dorsalis pedis pulses are 1+ on the right side and 2+ on the left side. Posterior tibial pulses are 1+ on the right side and 1+ on the left side. Heart sounds: Murmur heard. Pulmonary: Effort: Pulmonary effort is normal. Abdominal: Palpations: Abdomen is soft. Tenderness: There is no abdominal tenderness. Musculoskeletal: Cervical back: Neck supple. Right lower leg: No edema. Left lower leg: No edema. Feet: Right Foot: Protective Sensation: 5 sites tested.5 sites sensed. Skin Integrity: Positive for callus. Left Foot: Protective Sensation: 5 sites tested. 5 sites sensed. Skin Integrity: Positive for callus. Lymphadenopathy: Cervical: No cervical adenopathy. Skin: General: Skin is warm and dry. Findings: No rash. Neurological: Mental Status: She is alert. Mental status is at baseline. Psychiatric: Mood and Affect: Mood normal. Filed Vitals: 12/08/23 1314 BP: 130/70 Pulse: 68 Resp: 16 Temp: 97.2 ??F (36.2 ??C) TempSrc: Skin SpO2: 97% Weight: 82.6 kg (182 lb) Height: 1.651 m (5' 5 ) Diagnoses/Impression 1. Atrial fibrillation, controlled ([facility]) 2. 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 H/O mechanical aortic valve replacement COLLECT.CAPILLARY (FNGR,HEEL,EAR) PROTIME/INR, FINGERSTICK 4. Hyponatremia CBC W/DIFF AUTOMATED COMPREHENSIVE METABOLIC PANEL MAGNESIUM VENIPUNC ARM DRAW 5. 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[facility]HCC) 6. Mild vascular dementia with anxiety ([facility]) 7. Senile osteoporosis 8. Benign hypertension with stage 3b chronic kidney disease ([facility]) 9. Coronary artery disease involving choctaw coronary artery of choctaw heart without angina pectoris 10. Hyperlipidemia associated with type 2 diabetes mellitus ([facility]) 11. Chronic heart failure with preserved ejection fraction (HFpEF) ([facility]) 12. Need for immunization against influenza [60997] Flu Vaccine, Split Virus, High Dose 65+ Years 13. Hyperparathyroidism ([facility]) 14. Type 2 diabetes mellitus with stage 3b chronic kidney disease, without long- term current use ofinsulin ([facility]) 15. PAD (peripheral artery disease) ([facility]) 16. Anemia, unspecified type 17. Current mild episode of major depressive disorder without prior episode ([facility]) 18. Cirrhosis of liver without ascites, unspecified hepatic cirrhosis type ([facility]) 19. Polymyalgia rheumatica ([facility]) 20. Pulmonary emphysema, unspecified emphysema type ([facility]) 1. Atrial fibrillation, controlled ([facility]) -Continue f/u with cardiology, stable -Continue meds as prescribed -Continue lifestyle changes 2. [facility] (current) use of anticoagulants -Continue meds as prescribed, repeat PT/INR in 2 weeks 3. H/O mechanical aortic valve replacement -Continue f/u with cardiology, stable -Continue meds as prescribed -Continue lifestyle changes 4. Hyponatremia -Will order labs as per above 5. 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[facility]) -Continue with neurosurgery; stable 6. Mild vascular dementia with anxiety ([facility]) -Continue meds as prescribed -Continue lifestyle changes 7. Senile osteoporosis -F/u with endocrine; pt doesn't want to take Prolia at this time after discussion of risks/benefits 8. Benign hypertension with stage 3b chronic kidney disease ([facility]) -Continue meds as prescribed -Continue lifestyle changes 9. Coronary artery disease involving choctaw coronary artery of choctaw heart without angina pectoris -Continue f/u with cardiology, stable -Continue meds as prescribed -Continue lifestyle changes 10. Hyperlipidemia associated with type 2 diabetes mellitus ([facility]) -Continue meds as prescribed -Continue lifestyle changes 11. Chronic heart failure with preserved ejection fraction (HFpEF) ([facility]) -Continue f/u with cardiology, stable -Continue meds as prescribed -Continue lifestyle changes 12. Need for immunization against influenza -Will give flu shot 13. Hyperparathyroidism ([facility]) -Continue meds and f/u with endocrine as prescribed 14. Type 2 diabetes mellitus with stage 3b chronic kidney disease, without long- term current use ofinsulin ([facility]) -Continue meds as prescribed -Continue lifestyle changes 15. PAD (peripheral artery disease) ([facility]) -Continue meds as prescribed -Continue lifestyle changes 16. Anemia, unspecified type -F/u with hematology 17. Current mild episode of major depressive disorder without prior episode ([facility]) -Continue meds as prescribed 18. Cirrhosis of liver without ascites, unspecified hepatic cirrhosis type ([facility]) -Continue monitoring; stable 19. Polymyalgia rheumatica ([facility]) -Continue meds as prescribed -Continue lifestyle changes 20. Pulmonary emphysema, unspecified emphysema type ([facility]) -Stable, no symptoms Recommendations and Plan: F/u in 2 months or sooner if needed. Pt v/u Orders Placed This Encounter COLLECT.CAPILLARY (FNGR,HEEL,EAR) VENIPUNC ARM DRAW PROTIME/INR, FINGERSTICK CBC W/DIFF AUTOMATED COMPREHENSIVE METABOLIC PANEL MAGNESIUM [98867] Flu Vaccine, Split Virus, High Dose 65+ Years denosumab (PROLIA) 60 MG/ML injection Reviewed and updated this visit by provider: I personally spent a total of 50 minutes on the day of the encounter. This includes hthi-pi-rrvj and hjk-onuf-cm-face time I provided on the day of the encounter & excludes time spent performing separately reportable services. Sanjeev Webster DO documented in this encounter Plan of Treatment Upcoming Encounters Date Type Department Care Team (Late st Contact Info) Description 04/14/2024 2:00 PM SCOUT SNIPER Office Visit [facility] Medical Group Multispecialty Care - [facility] [address], [address] [place] [address] Julio Pulido MD [address] [place] [address] documented as of this encounter Goals Goal Patient Goal Type Associated Problems Recent Progress Patient-Stated? Author Health - patient able to perform ADLs independently General On track(2023 9:49 AM CDT) Dianne Corona, RN Note: 12/17/23: Patient stated she is independent with ASL's. Establish Plan for Symptom Monitoring-CHF General On track(2023 11:36 AM SCOUT SNIPER) Dianne Corona, RN Note: Patient will recognize [...] Symptom Monitoring-COPD General On track(2023 11:36 AM SCOUT SNIPER) Dianne Corona, RN Note: Patient will recognize [...] Symptom Monitoring-DM General On track(2023 4:33 PM SCOUT SNIPER) Dianne Corona RN Note: Patient will manage [...] Symptom Monitoring-HTN General On track(2023 4:33 PM SCOUT SNIPER) Dianne Corona, DALE Note: Patient will monitor B/P several times per week , record readings and report to physician or CC if B/P consistently >130/80 Take your medications as prescribed. Follow up with your provider as scheduled. Take your blood pressure at least several times a week if able. 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 H/O mechanical aortic valve replacement PROTHROMBIN TIME, FINGERSTICK Routine 12/08/2023 [facility] (current) use of anticoagulants H/O mechanical aortic valve replacement documented in this encounter Results * MAGNESIUM (12/08/2023 2:15 PM CDT) MAGNESIUM 1.8 1.8 - 2.4 MG/DL 12/08/2023 7:27 PM CDT [facility] 12/08/2023 2:15 PM CDT Sanjeev Webster DO LABORATORY Final Re sult [facility] [address] [place] [address], * (ABNORMAL) COMPREHENSIVE METABOLIC PANEL (12/08/2023 2:15 PM CDT) SODIUM S/P/B 141 136 - 145 MMOL/L 12/08/2023 7:27 PM CDT [facility] POTASSIUM S/P/B 4.5 3.5 - 5.1 MMOL/L 12/08/2023 7:27 PM CDT [facility] CHLORIDE S/P/B 103 98 - 107 MMOL/L 12/08/2023 7:27 PM CDT [facility] CO2 29.4 21 - 32 MMOL/L 12/08/2023 7:27 PM CDT [facility] GLUCOSE 81 70 - 99 MG/DL 12/08/2023 7:27 PM CDT [facility] BUN 20(H) 7 - 18 MG/DL 12/08/2023 7:27 PM CDT [facility] CREATININE S/P/B 1.27(H) 0.55 - 1.02 MG/DL 12/08/2023 7:27 PM [facility] CALCIUM S/P/B 10.3 8.4 - 10.5 MG/DL 12/08/2023 7:27 PM [facility] BILIRUBIN TOTAL S/P/B 0.5 0.2 - 1.0 MG/DL 12/08/2023 7:27 PM T [facility] ALKALINE PHOSPHATASE S/P/B 73 55 - 142 U/L 12/08/2023 7:27 PM CDT [facility] AST 23 15 - 37 U/L 12/08/2023 7:27 PM T [facility] ALT 22 14 - 59 U/L 12/08/2023 7:27 PM [facility] TOTAL PROTEIN S/P/B 6.9 6.4 - 8.2 G/DL 12/08/2023 7:27 PM [facility] ALBUMIN S/P/B 3.7 3.4 - 5.0 G/DL 12/08/2023 7:27 PM T [facility] ANION GAP 8.6 5 - 15 MMOL/L 12/08/2023 7:27 PM [facility] Comment:REFERENCE RANGE NOT ESTABLISHED OSMOLALITY (CALC) 294 MOSM/KG 024 7:27 [facility] Comment:REFERENCE RANGE NOT ESTABLISHED GFR ESTIMATE 43(L) >90 ML/MIN/1. 73 M2 12/08/2023 7:27 PM T [facility] GFR NOTES GFR REFERENCE S: 12/08/2023 7:27 PM T [facility] Comment: THE ESTIMATED GFR IS CALCULATED USING THE 2020 CKD-EPI EQUATION. THE FOLLOWING CATEGORIES FOR GRADING RENAL FUNCTION ARE RECOMMENDED BY THE INTERNATIONAL SOCIETY OF NEPHROLOGY (KDIGO 2012 CLINICAL PRACTICE GUIDELINE). G1,NORMAL OR HIGH: >89 ml/min/1.73 m2 G2,MILDLY DECREASED: 60-89 ml/min/1.73 m2 G3A,MILDLY TO MODERATELY DECREASED: 45-59 ml/min/1.73 m2 G3B,MODERATELY TO SEVERELY DECREASED: 30-44 ml/min/1.73 m2 G4,SEVERELY DECREASED: 15-29 ml/min/1.73 m2 G5,KIDNEY FAILURE: <15 ml/min/1.73 m2 12/08/2023 2:15 PM CDT Sanjeev Webster DO LABORATORY Final Re sult [facility] [address] [place] [address], [place] [phone] * (ABNORMAL) CBC W/DIFF AUTOMATED (12/08/2023 2:15 PM CDT) WBC 6.49 4.00 - 10.80 x10'3/uL 12/08/2023 8:01 PM CDT [facility] RBC 3.99(L) 4.10 - 5.40 x10'6/uL 12/08/2023 8:01 PM CDT [facility] HGB 12.6 12.0 - 16.0 G/DL 12/08/2023 8:01 PM CDT [facility] HCT 40.7 36.0 - 47.0 % 12/08/2023 8:01 PM CDT [facility] MCV 102.0(H) 78.0 - 100.0 FL 12/08/2023 8:01 PM CDT [facility] MCH 31.6(H) 27.0 - 31.0 PG 12/08/2023 8:01 PM CDT [facility] MCHC 31.0(L) 33.0 - 36.0 G/DL 12/08/2023 8:01 PM CDT [facility] RDW 13.1 11.5 - 14.5 % 12/08/2023 8:01 PM CDT [facility] PLT 198 150 - 350 x10'3/uL 12/08/2023 8:01 PM CDT [facility] MPV 13.8(H) 7.4 - 10.4 FL 12/08/2023 8:01 PM CDT [facility] DIFFERENTIAL TYPE AUTOMATED DIFFERENTIAL 12/08/2023 8:01 PM CDT [facility] NEUTROPHILS % 66.7 % 12/08/2023 8:01 PM CDT [facility] LYMPHOCYTES % 19.7 % 12/08/2023 8:01 PM CDT [facility] MONOCYTES % 10.5 % 12/08/2023 8:01 PM CDT [facility] EOSINOPHILS % 1.8 % 12/08/2023 8:01 PM CDT [facility] BASOPHILS % 1.1 % 12/08/2023 8:01 PM CDT [facility] IMMATURE GRANS % 0.2 % 12/08/2023 8:01 PM CDT [facility] ABS. NEUTROPHILS 4.33 1.60 - 8.30 x10'3/uL 12/08/2023 8:01 PM CDT [facility] ABS. LYMPHOCYTES 1.28 0.80 - 4.70 x10'3/uL 12/08/2023 8:01 PM CDT [facility] ABS. MONOCYTES 0.68 0.00 - 1.50 x10'3/uL 12/08/2023 8:01 PM CDT [facility] ABS. EOSINOPHILS 0.12 0.00 - 0.40 x10'3/uL 12/08/2023 8:01 PM CDT [facility] ABS. BASOPHILS 0.07 0.00 - 0.20 x10'3/uL 12/08/2023 8:01 PM CDT [facility] ABS. IMMATURE GRANULOCYTES 0.01 0.00 - 0.03 x10'3/uL 12/08/2023 8:01 PM CDT [facility] [place] [facility] 12/08/2023 2:15 PM CDT us Sanjeev Webster DO LABORATORY Final Re sult [facility] [place] [address] [place] [address], * PROTIME/INR, FINGERSTICK (12/08/2023) INR WHOLE BLOOD 2.90 MG-S [facility] 12/08/2023 us Sanjeev Webster DO LABORATORY Final Re sult Performing Organization Address [facility] Co de Phone Number [facility] [address] [place] [address], documented in this encounter Visit Diagnoses Diagnosis Atrial fibrillation, controlled ([facility])- Primary Atrial fibrillation [facility] (current) use of anticoagulants Long-term (current) use of anticoagulants H/O mechanical aortic valve replacement Heart valve replaced by other means Hyponatremia Hyposmolality and/or hyponatremia 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[facility]) Cerebral aneurysm, nonruptured Mild vascular dementia with anxiety ([facility]) Senile osteoporosis Benign hypertension with stage 3b chronic kidney disease ([facility]) Coronary artery disease involving choctaw coronary artery of choctaw heart without angina pectoris Hyperlipidemia associated with type 2 diabetes mellitus ([facility]) Chronic heart failure with preserved ejection fraction (HFpEF) ([facility] [facility]) Need for immunization against influenza Need for prophylactic vaccination and inoculation against influenza Hyperparathyroidism ([facility] Hyperparathyroidism, unspecified Type 2 diabetes mellitus with stage 3b chronic kidney disease, without long-term current use of insulin ([facility]) PAD (peripheral artery disease) ([facility]) Peripheral vascular disease, unspecified Anemia, unspecified type Current mild episode of major depressive disorder without prior episode ([facility]) Cirrhosis of liver without ascites, unspecified hepatic cirrhosis type ([facility]) Polymyalgia rheumatica ([facility]/HCC) Polymyalgia rheumatica Pulmonary emphysema, unspecified emphysema type ([facility]) documented in this encounter Additional Health Concerns Assessment Noted Time PHQ-9 Depression Total Score: 13 023 3:56 PM CDT documented as of this encounter Care Teams Handkerchief Presser Relationship Specialty Start Date End Date Sanjeev Webster DO [address] [place] [address] PCP - General FAMILY PRACTICE 09/25/20 Dianne Johnson, RN [address] [place], [place] [id number] Varnish Remover (Ambulatory) REGISTERED NURSE 08/14/20 documented as of this encounter
--- OUTSIDE RECORDS SUMMARY | 2024-03-15 00:49 | XMS_ITS | Encounter Summary ---
Author Organization [facility] Address [facility] [place] [address] [place] [address] Care Team Providers Care Peanut Blancher Name Role Phone Dianne Johnson RN Unavailable [phone] Sanjeev Webster DO Primary Care Provider + Reason for Visit * Reason Comments Anticoagulation Encounter Details Date Type Department Care Team (Late st Contact Info) Description 11/30/2023 11:20 AM CDT Allied Health/Nurse Visit [facility] Family & Internal Medicine [address] [address] Sanjeev Webster DO [facility] [place] [address] Anticoagulation Social History Tobacco Use [...] often do you attend chur ch or advent services? More than 4 times per year [...] Recorded Patient Health Questionnaire-2 Score 1 08/06/2023 [facility] of Occupat ional [...] st Contact Info) Description 04/14/2024 2:00 PM CLINICAL REHAB SPECIALIST Office Visit [facility] Medical Group Multispecialty Care - [facility] [address] [facility], [address] [place] [id number] Julio Pulido MD [address] [place] [address] documented as of this encounter Goals Goal Patient Goal Type Associated Problems Recent Progress Patient-Stated? Author Health - patient able to perform ADLs independently General On track(2023 9:49 AM CDT) Dianne Corona RN Note: 12/17/23: Patient stated she is independent with ASL's. Establish Plan for Symptom Monitoring-CHF General On track(2023 11:36 AM CLINICAL REHAB SPECIALIST) Dianne Corona RN Note: Patient will [...] Symptom Monitoring-COPD General On track(2023 11:36 AM CLINICAL REHAB SPECIALIST) Dianne Corona RN Note: Patient will [...] Symptom Monitoring-DM General On track(2023 4:33 PM CLINICAL REHAB SPECIALIST) Dianne Corona RN Note: Patient will [...] Symptom Monitoring-HTN General On track(2023 4:33 PM CLINICAL REHAB SPECIALIST) Dianne Corona RN Note: Patient will [...] Date/Time Associated Diagnosis Comments COLLECT.CAPILLARY (FNGR,HEEL,EAR) Routine 11/30/2023 11:28 AM CDT nursing home (current) use of anticoagulants PROTHROMBIN TIME, FINGERSTICK Routine 11/30/2023 nursing home (current) use of anticoagulants documented in this encounter Results * PROTIME/INR, FINGERSTICK (11/30/2023) INR WHOLE BLOOD 2.70 MG-S [facility] 11/30/2023 us Sanjeev Webster DO LABORATORY Final Re sult [facility] [address] [place] [address], documented in this encounter Visit Diagnoses Diagnosis 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
--- OUTSIDE RECORDS SUMMARY | 2024-03-15 00:49 | XMS_ITS | Encounter Summary ---
Author Organization [facility] Address [facility]6 [facility] [place] [address] [place] [address] Care Team Providers Care Audiology Assistant Name Role Phone Dianne Johnson RN Unavailable [phone] Sanjeev Webster DO Primary Care Provider + Reason for Visit * Reason Onset Date Comments Follow Up Call 12/17/2023 Encounter Details Date Type Department Care Team (Late st Contact Info) Description 12/17/2023 Telephone [facility] Medical [facility] Family & Internal Medicine [id number] [place] [address] Sanjeev Webster DO [address] [place] [address] Follow Up Call Social History [...] How often do you attend chur or shinto services? More than 4 times per year 08/26/2022 Do you belong to any clubs o r organizations such as religion groups, unions, fraternal or athletic groups, or [...] Recorded Patient Health Questionnaire-2 Score 0 12/08/2023 [facility] of Occupat ional Health - [...] documented in this encounter Progress Notes * Padmini Tyler MA - 12/18/2023 12:13 PM CDT LVM for patient to call the office * Sanjeev Webster DO - 12/18/2023 8:39 AM CDT Recommend docusate 100 mg bid prn; can prescribe if needed. Recheck PT/INR at scheduled TCM. * Dianne Johnson RN - 12/17/2023 4:12 PM CDT Images from the original note were not included. D/C from [facility] on 12/16/23. DX: acute gout attack right foot. Records faxed to PCP this morning at 8:37 am. TCM call completed and TCM appointment scheduled on 12/21/23. Please address the following: Patient c/o constipation. Izzy wanting to know what recommends she get OTC. Patient declines miralax. 2. FYI: Patient started on Prednisone tapering dose and tolerating medication well. Denies any s/s of allergic reaction. The information below appeared when entering prednisone. 3. FYI: Patient was started on alendronate 35 mg once a week. 4. Patient's warfarin decreased to 5 mg daily. Please advise when she should have PT/INR checked again. See the following results: documented in this encounter Plan of Treatment Upcoming Encounters Date Type Department Care Team (Late st Contact Info) Description 04/14/2024 2:00 PM GRIPPER ATTACHER Office Visit [facility] Medical [facility] Multispecialty Care - [facility] [address] [facility], [address] [place] [address] Julio Pulido MD [address] [place] [address] documented as of this encounter Goals Goal Patient Goal Type Associated Problems Recent Progress Patient-Stated? Author Health - patient able to perform ADLs independently General On track(2023 9:49 AM CDT) Dianne Corona, RN Note: 12/17/23: Patient stated she is independent with ASL's. Establish Plan for Symptom Monitoring-CHF General On track(2023 11:36 AM GRIPPER ATTACHER) Dianne Corona, RN Note: Patient will recognize [...] Symptom Monitoring-COPD General On track(2023 11:36 AM GRIPPER ATTACHER) Dianne Corona, RN Note: Patient will recognize [...] Symptom Monitoring-DM General On track(2023 4:33 PM GRIPPER ATTACHER) Dianne Corona, RN Note: Patient will manage [...] Symptom Monitoring-HTN General On track(2023 4:33 PM GRIPPER ATTACHER) Dianne Corona, RN Note: Patient will monitor [...] documented as of this encounter Care Teams Audiology Assistant Relationship Specialty Start Date End Date Sanjeev Webster DO [address] [place] [address] PCP - General FAMILY PRACTICE 09/25/20 Dianne Johnson, RN [address] [place] [address] Briquetter Operator (Ambulatory) REGISTERED NURSE 08/14/20 documented as of this encounter
--- OUTSIDE RECORDS SUMMARY | 2024-03-15 00:49 | XMS_ITS | Encounter Summary ---
Author Organization [facility] Address [facility]6 [facility] [place] [address] [place] [address] Care Team Providers Care Bookkeeping Service Sales Agent Name Role Phone Dianne Johnson RN Unavailable [phone] Sanjeev Webster DO Primary Care Provider + Reason for Visit * Reason Comments Image (SCAN) Encounter Details Date Type Department Care Team (Latest Contact Info) Description 12/15/2023 Scan HEALTH INFO [facility] Scanned, Doc Med Group Image (SCAN) Social History Tobacco Use Types Packs/Day [...] How often do you attend chur or yazidi services? More than 4 times per year [...] Questionnaire-2 Score 0 12/08/2023 [facility] - Occupational Stress Questionnaire Answer Date [...] st Contact Info) Description 04/14/2024 2:00 PM LICENSED VOCATIONAL NURSE Office Visit [facility] Medical Group Multispecialty Care - [facility] [address] [facility], [address] [place] [address] Julio Pulido MD [address] [place] [address] documented as of this encounter Goals Goal Patient Goal Type Associated Problems Recent Progress Patient-Stated? Author Health - patient able to perform ADLs independently General On track(2023 9:49 AM CDT) Dianne Corona RN Note: 12/17/23: Patient stated she is independent with ASL's. Establish Plan for Symptom Monitoring-CHF General On track(2023 11:36 AM LICENSED VOCATIONAL NURSE) Dianne Corona RN Note: Patient will recognize [...] Symptom Monitoring-COPD General On track(2023 11:36 AM LICENSED VOCATIONAL NURSE) Dianne Corona RN Note: Patient will recognize [...] Symptom Monitoring-DM General On track(2023 4:33 PM LICENSED VOCATIONAL NURSE) Dianne Corona, RN Note: Patient will manage [...] Symptom Monitoring-HTN General On track(2023 4:33 PM LICENSED VOCATIONAL NURSE) Dianne Corona, RN Note: Patient will monitor B/P several times per week , record readings and report to physician or CC if B/P consistently >130/80 Take your medications as prescribed. Follow up with your provider as scheduled. Take your blood pressure at least several times a week if able. documented as of this encounter Procedures Procedure Name Priority Date/Time Associated Diagnosis Comments IMAGE GENERIC 12/15/2023 documented in this encounter Results * IMAGE GENERIC (12/15/2023) Anatomical Region Laterality Modality Other 12/15/2023 us Doc Med Group Scanned SCANNING Final Resu lt documented in this encounter Visit Diagnoses Not on filedocumented in this encounter Additional Health Concerns Assessment Noted Time PHQ-9 Depression Total Score: 13 023 3:56 PM CDT documented as of this encounter Care Teams Bookkeeping Service Sales Agent Relationship Specialty Start Date End Date Sanjeev Webster DO [address] [place] [address] PCP - General FAMILY PRACTICE 09/25/20 Dianne Johnson, RN [address] [place] [address] Reed Press Feeder (Ambulatory) REGISTERED NURSE 08/14/20 documented as of this encounter
--- OUTSIDE RECORDS SUMMARY | 2024-03-15 00:49 | XMS_ITS | Encounter Summary ---
Author Organization [facility] Address [facility]6 [facility] [place] [address] [place] [address] Care Team Providers Care Forge Operator Name Role Phone Dianne Johnson RN Unavailable [phone] Sanjeev Webster DO Primary Care Provider + Reason for Visit * Reason Onset Date Comments Radiology Results 12/17/2023 Encounter Details Date Type Department Care Team (Late st Contact Info) Description 12/17/2023 Telephone [facility] Medical Group Family & Internal Medicine [address] [place] [address] Sanjeev Webster DO [address] [place] [address] Radiology Results Social History Tobacco Use Types Packs/Day [...] often do you attend chur ch or oriental orthodox services? More than 4 times per year 08/26/2022 Do you belong to any clubs o r organizations such as worship groups, unions, fraternal or athletic groups, or [...] Recorded Patient Health Questionnaire-2 Score 0 12/08/2023 [facility] of Occupat ional Health - Occupational [...] Progress Notes * Sanjeev Webster DO - 12/22/2023 12:51 PM CDT We did not; it could probably be relayed to her at her next PT/INR appointment next week since it'snormal. * Yenifer Ingram MA - 12/22/2023 11:07 AM CDT LMOM for r/c. Did you discuss these results at her appt on 12/21/2023 * Sanjeev Webster DO - 12/17/2023 3:42 PM CDT Please let pt know we have the results of her RICHARD from 12/11/23. It does not show significant PAD. No additional testing needed at this time. documented in this encounter Plan of Treatment Upcoming Encounters Date Type Department Care Team (Late st Contact Info) Description 04/14/2024 2:00 PM GLASS RIBBON MACHINE OPERATOR Office Visit [facility] Medical Group Multispecialty Care - [address], [address] [place] [address] Julio Pulido MD [address] [place] [address] (work) documented as of this encounter Goals Goal Patient Goal Type Associated Problems Recent Progress Patient-Stated? Author Health - patient able to perform ADLs independently General On track(2023 9:49 AM CDT) Dianne Corona RN Note: 12/17/23: Patient stated she is independent with ASL's. Establish Plan for Symptom Monitoring-CHF General On track(2023 11:36 AM GLASS RIBBON MACHINE OPERATOR) Dianne Corona RN Note: Patient [...] Symptom Monitoring-COPD General On track(2023 11:36 AM GLASS RIBBON MACHINE OPERATOR) Dianne Corona RN Note: Patient [...] Symptom Monitoring-DM General On track(2023 4:33 PM GLASS RIBBON MACHINE OPERATOR) Dianne Corona RN Note: Patient [...] Symptom Monitoring-HTN General On track(2023 4:33 PM GLASS RIBBON MACHINE OPERATOR) Dianne Corona RN Note: Patient [...] documented as of this encounter Care Teams Forge Operator Relationship Specialty Start Date End Date Sanjeev Webster DO [address] [place] [address] PCP - General FAMILY PRACTICE 09/25/20 Dianne Johnson RN [facility] [place] [address] Printing Machinist (Ambulatory) REGISTERED NURSE 08/14/20 documented as of this encounter
--- OUTSIDE RECORDS SUMMARY | 2024-03-15 00:49 | XMS_ITS | Encounter Summary ---
Author Organization [facility] Address [facility] [place] [address] [place] [address] Care Team Providers Care City Supervisor Name Role Phone Dianne Johnson RN Unavailable [phone] Sanjeev Webster DO Primary Care Provider + Encounter Details Date Type Department Care Team (Latest Contact Info) Description 11/30/2023 Travel Social History Tobacco Use Types Packs/Day [...] How often do you attend chur or restorationist services? More than 4 times [...] Recorded Patient Health Questionnaire-2 Score 1 08/06/2023 [facility] of Occupat ional Health - Occupational [...] st Contact Info) Description 04/14/2024 2:00 PM BEAD CUTTER Office Visit [facility] Medical Group Multispecialty Care - [facility] 3 [facility], [address] [place] [address] Julio Pulido MD [address] [place] [address] documented as of this encounter Goals Goal Patient Goal Type Associated Problems Recent Progress Patient-Stated? Author Health - patient able to perform ADLs independently General On track(2023 9:49 AM CDT) Dianne Corona RN Note: 12/17/23: Patient stated she is independent with ASL's. Establish Plan for Symptom Monitoring-CHF General On track(2023 11:36 AM BEAD CUTTER) Dianne Corona RN Note: Patient will [...] Symptom Monitoring-COPD General On track(2023 11:36 AM BEAD CUTTER) Dianne Corona RN Note: Patient will [...] Symptom Monitoring-DM General On track(2023 4:33 PM BEAD CUTTER) Dainne Corona RN Note: Patient will manage her [...] Symptom Monitoring-HTN General On track(2023 4:33 PM BEAD CUTTER) Dianne Corona, RN Note: Patient will monitor [...] documented as of this encounter Care Teams City Supervisor Relationship Specialty Start Date End Date Sanjeev Webster DO [address] [place] [address] PCP - General FAMILY PRACTICE 09/25/20 Dianne Johnson, RN [address] [place] [address] Geriatric Nursing Assistant (Ambulatory) REGISTERED NURSE 08/14/20 documented as of this encounter
--- OUTSIDE RECORDS SUMMARY | 2024-03-15 00:49 | XMS_ITS | Encounter Summary ---
Author Organization [facility] Address [facility] [place] [address] [place] [address] Care Team Providers Care Hospital Unit Clerk Name Role Phone Dianne Johnson RN Unavailable [phone] Sanjeev Webster DO Primary Care Provider + Reason for Visit * Reason Onset Date Comments TCM 12/17/2023 [facility] 12/11-12/15 Encounter Details Date Type Department Care Team (Late st Contact Info) Description 12/17/2023 Patient Outreach [facility] Medical Group Family & Internal Medicine [address] [address] Dianne Johnson, RN [address] [place] [address] TCM ([facility] 12/11-12/15) Social History Tobacco Use Types Packs/Day Years [...] How often do you attend chur or advent services? More than 4 times [...] Recorded Patient Health Questionnaire-2 Score 0 12/08/2023 [facility] Occup[facility] ional Health - Occupational Stress [...] Progress Notes * Dianne Johnson RN - 12/17/2023 6:29 AM CDT Images from the original note were not included. Follow up call to patient post hospitalization 12/17/23: Contacted Shanel in medical records. She will fax CC D/C summary, D/C medication list [place] notes. 12/17/23: Received faxed records. Copy faxed to PCP office. Patient admitted to [facility] on 12/12/23 with discharge diagnosis of acute gout attack right foot. Discharge date: 12/16/23 Date of Contact: 12/17/23 Patient Status: (Including education, discharge instructions, s/sx to infection, and when to seek medical attn) Contacted patient today. Reviewed hospital course and D/C instructions. Reviewed the information below regarding allergy/contraindication:prednisone. Patient stated she 's been taking prednisone without any issues of an allergic reaction. Patient stated she is able to get around with a shoe on her right foot. Stated this gives her some support. Ambulating with a walker for stability. Educated on fall risk prevention. Encouraged to keep night lights on at night and remove loose rugs. Patient verbalizes understanding. She declines getting [facility] services at this time. Encouraged to reach out to CC if she changes her mind. Offered to set up MOW and patient declines. Stated she is picky about what she eats and stated somefoods she can't eat. Her sister will p/u groceries if she needs anything. Offered to call [facility] and get matrix worker services set up again. Patient is agreeable. Patient stated Izzy (DIL) came over last night and filled her pill communications planner. Stated she changed Warfarin to 5 mg daily as instructed by [facility]. Patient stated she had a small BM yesterday. Stated she's been constipated. Encouraged to increase fiber in diet and drink more water. Patient is currently ambulating at her pace with gout in right foot. Stated she forgot to remind Izzy to pick her up something for constipation. Informed patient that CC left a detailed message for Izzy to call CC.When she calls CC will ask her. Scheduled TCM appointment on 12/21/23 at 10:40 am with . Rescheduled patient's appointment with for 01/11/24 at 10:15 am while patient was hospitalized. Per patient's request. Gavepatient new appointment details and she wrote it down. No further needs noted at this time. 12/17/23: [facility] discharge medication list reconciled with medication list in [facility]. Leftmessage for Izzy (VALORIE) to call CC to review medication list. 12/17/23: Left a detailed message with Memo yates [facility] ([phone]) to contact CC or patient back directly to get patient set up with matrix worker malia. 12/17/23: Contacted patient's daughter in law; Izzy and she confirmed discrepancies on [facility] medication list versus medication list in [facility]. She stated [facility] didn't call her to clarify medication list. She stated they normally call her. According to [facility] medication list it states the following: Continue taking Metoprolol succinate 25 mg taking 12.5 mg po daily. [facility] medication list states to take 25 mg daily. Confirmed with Izzy patient is taking 25 mg daily. Confirmed with Izzy patient is taking ferrous sulfate, B complex. [facility]. Izzy stated she picked up a prescription for alendronate 35 mg taking 1 tablet by mouth every 7 days. On page 25 of D/C summary from [facility] it states the following: Reviewed prednisone directions from [facility] medication list. Izzy stated she was confused about it and it gave her a headache last night. Stating she received QTY # 48 10 mg prednisone tablets but the directions on the bottle read take 40 mg by mouth daily x 3 days, then 30 mg daily x 3 days, then 20 mg daily x 3 days, then 10 mg daily x 10 days. Izzy stated she has a lot of prednisone left in the bottle and it doesn't reflect what it said on D/C medication list. Izzy was confused why it stated to take 40 mg daily x 3 days twice on D/C medication list. broadcast traffic coordinator will reach out to pharmacist at [facility]. The pharmacist should have confirmed with ordering provider the correct directions and qty. Informed Izzy CC will have pharmacist call her back with directions. Informed Izzy that patient is having issues with constipation and requesting something OTC but not miralax. Izzy requesting CC send message to PCP to find out what he recommends. Message sent. Izzy thanked CC. 12/17/23: Contacted pharmacist Riccardo at [facility]. Stated she is unsure what happened yesterday as she was not working. Requested Riccardo reach out to ordering provider for clarification and contact Izzy at [phone] with correct directions. Requested Riccardo call CC back with correct directions to update medication list. Thanked Riccardo for her time. 12/17/23: Contacted Izzy back about the above and she appreciates it. According to D/C summary it states the following: Pertinent Labs: Pertinent Procedures/Imaging performed while inpatient: Vaccines Given While Inpatient: no Discharge Disposition: Home Any follow up appointments needed to be scheduled: no Future Appointments Date Time Provider Department [place] 12/21/2023 10:40 AM Sanjeev Webster DO [facility] 02/29/2024 1:40 PM Sanjeev Webster DO [facility] 03/04/2024 1:00 PM [facility] 04/14/2024 2:00 PM Julio Pulido MD [facility] Referrals needed: no Any follow up labs/imaging needed: yes - PT/INR. Message sent to PCP nursing team to find out when next PT/INR is due. Have lab/imaging orders been placed: N/A Allergies: Review of patient's allergies indicates: Allergen Reactions Atorvastatin Leg Pain Leg pain/cramps. Resolved after stopping. Tape Contact Dermatitis Benzalkonium Other (see comment) Cortisone Unknown Gramicidin Other (see comment) Hydrocortisone Other (see comment) Medical Adhesive Remover Other (see comment) Rosuvastatin Leg Pain Cramping in legs Bacitracin Other (see comment) and Rash Neomycin Other (see comment) and Rash Polymyxin B Other (see comment) and Rash Medications: Outpatient medications have been reconciled with hospital discharge list. See below for changes. Current Outpatient Medications Medication Sig Note Dispense Refill acetaminophen (TYLENOL) 500 MG tablet Take 1 tablet (500 mg total) by mouth daily as needed. No more then 2500 mg per day. 12/17/2023: Patient stated she takes tylenol prn. albuterol sulfate HFA 108 (90 Base) MCG/ACT inhaler INHALE 2 PUFFS BY MOUTH EVERY 6 HOURS NEEDEDFOR WHEEZING 18 g 5 alendronate (FOSAMAX) 35 MG tablet Take 1 tablet (35 mg total) by mouth every 7 days. 12/17/2023: Per Izzy (DIL) ALPRAZolam (XANAX) 0.5 MG tablet TAKE 1/2 (ONE-HALF) TABLET BY MOUTH NIGHTLY NEEDED FOR SLEEP 15tablet 0 B Complex Cap capsule Take 1 capsule by mouth daily. 12/17/2023: Izzy stated she is taking this supplement. Cholecalciferol (VITAMIN D3) 25 MCG (1000 UT) Cap Take 1 capsule (1,000 Units total) by mouth daily. cinacalcet (SENSIPAR) 30 MG tablet Take 0.5 tablets (15 mg total) by mouth daily. ferrous sulfate, 65 mg elemental, 325 (65 FE) MG tablet Take 1 tablet (325 mg total) by mouth dailywith breakfast. 12/17/2023: Patient stated she is taking. furosemide (LASIX) 20 MG tablet Take 1 tablet by mouth once daily 30 tablet 1 gabapentin (NEURONTIN) 300 MG capsule take 1 capsule by mouth three times daily 270 capsule 0 HYDROcodone-acetaminophen (NORCO) 5-325 MG tablet Take 1-2 tablets by mouth every 6 (six) hours as needed for Pain. Indications: Chronic Pain 60 tablet 0 methIMAzole (TAPAZOLE) 5 MG tablet Take 1 tablet (5 mg total) by mouth daily. metoprolol succinate ER (TOPROL-XL) 25 MG 24 hr tablet Take 1 tablet (25 mg total) by mouth daily.90 tablet 0 omeprazole (PRILOSEC) 40 MG capsule [...] days 10 mg daily for 3 days 12/17/2023: Spoke to pharmacist; Riccardo at [facility] pharmacy. She will call ordering doctor to get clarification on directions and QTY. Semaglutide (OZEMPIC, 0.25 OR 0.5 MG/DOSE, SC) [...] tablet (1,000 mcg total) by mouth daily. 12/17/2023: Patient is taking. warfarin (COUMADIN) 5 MG tablet Take 1 tablet by mouth once daily 12/17/2023: Per [facility]/ medication list Warfarin changed to 5 mg daily. 30 tablet 1 Blood Glucose Monitoring Suppl (ONE TOUCH ULTRA 2) w/Device Kit 1 Device by Does not apply route daily. 1 kit 0 denosumab (PROLIA) 60 MG/ML injection Glucose Blood (BLOOD GLUCOSE TEST STRIPS) Strip 1 Device by Does not apply route daily. 100 strip 3 Lancets (ONETOUCH ULTRASOFT) lancets 1 each by Other route as needed. Use as instructed 100 each 3 warfarin (COUMADIN) 1 MG tablet Take 1 tablet (1 mg total) by mouth daily. (Patient not taking: Reported on 12/17/2023) 30 tablet 0 warfarin (COUMADIN) 2 MG tablet Take 1 tablet (2 mg total) by mouth daily. (Patient not taking: Reported on 12/17/2023) 30 tablet 1 warfarin (COUMADIN) 6 MG tablet Take 1 tablet (6 mg total) by mouth daily. (Patient not taking: Reported on 12/17/2023) 90 tablet 0 No current facility-administered medications for this visit. Medication Changes or Discontinued Medications: New medication: Does patient have difficulty affording medication: No Do any medications need refilled: No Does patient have access to care and services (rides, etc)? Yes Patient Goals: Goals Addressed This Visit's Progress [...] with your provider. Establish Plan for Symptom Monitoring-DM On track [...] least several times a week if able. Health - patient able to perform ADLs independently On track 12/17/23: Patient stated she is independent with ASL's. Plan of Care: Follow up with on 12/21/23 or call before that time if needed. broadcast traffic coordinator will continue to follow up by phone. documented in this encounter Plan of Treatment Upcoming Encounters Date Type Department Care Team (Late st Contact Info) Description 04/14/2024 2:00 PM DRILL PRESS SET UP OPERATOR Office Visit [facility] Medical Group Multispecialty Care - [address], [address] [place] [address] Julio Pulido MD [address] [place] [address] documented as of this encounter Goals Goal Patient Goal Type Associated Problems Recent Progress Patient-Stated? Author Health - patient able to perform ADLs independently General On track(2023 9:49 AM CDT) Dianne Corona RN Note: 12/17/23: Patient stated she is independent with ASL's. Establish Plan for Symptom Monitoring-CHF General On track(2023 11:36 AM DRILL PRESS SET UP OPERATOR) Dianne Corona RN Note: Patient will [...] Symptom Monitoring-COPD General On track(2023 11:36 AM DRILL PRESS SET UP OPERATOR) Dianne Corona RN Note: Patient will [...] Symptom Monitoring-DM General On track(2023 4:33 PM DRILL PRESS SET UP OPERATOR) Dianne Corona RN Note: Patient will [...] Symptom Monitoring-HTN General On track(2023 4:33 PM DRILL PRESS SET UP OPERATOR) Dianne Corona RN Note: Patient will [...] documented as of this encounter Care Teams Hospital Unit Clerk Relationship Specialty Start Date End Date Sanjeev Webster DO [address] [place] [id number] PCP - General FAMILY PRACTICE 09/25/20 Dianne Johnson, RN [address] [place] [address] Magazine Feeder (Ambulatory) REGISTERED NURSE 08/14/20 documented as of this encounter
--- OUTSIDE RECORDS SUMMARY | 2024-03-15 00:49 | XMS_ITS | Encounter Summary ---
Author Organization [facility] Address [facility] [place] [address] [place] [address] Care Team Providers Care Spanish Lecturer Name Role Phone Dianne Johnson RN Unavailable [phone] Sanjeev Webster DO Primary Care Provider + Reason for Visit * Reason Comments Image (SCAN) Encounter Details Date Type Department Care Team (Latest Contact Info) Description 12/13/2023 Scan HEALTH INFO SRVCS Scanned, Doc Med [...] How often do you attend chur or baptist services? More than 4 times per year [...] Recorded Patient Health Questionnaire-2 Score 0 12/08/2023 [facility] - Occupational Stress Questionnaire Answer Date [...] st Contact Info) Description 04/14/2024 2:00 PM MECHANIC FIELD SERVICE Office Visit [facility] Medical Group Multispecialty Care - [facility] [address] [facility], [address] [place] [address] Julio Pulido MD [address] [place] [address] documented as of this encounter Goals Goal Patient Goal Type Associated Problems Recent Progress Patient-Stated? Author Health - patient able to perform ADLs independently General On track(2023 9:49 AM CDT) Dianne Corona RN Note: 12/17/23: Patient stated she is independent with ASL's. Establish Plan for Symptom Monitoring-CHF General On track(2023 11:36 AM MECHANIC FIELD SERVICE) Dianne Corona RN Note: Patient will recognize [...] Symptom Monitoring-COPD General On track(2023 11:36 AM MECHANIC FIELD SERVICE) Dianne Corona RN Note: Patient will recognize [...] Symptom Monitoring-DM General On track(2023 4:33 PM MECHANIC FIELD SERVICE) Dianne Corona, RN Note: Patient will manage [...] Symptom Monitoring-HTN General On track(2023 4:33 PM MECHANIC FIELD SERVICE) Dianne Corona, RN Note: Patient will monitor [...] Priority Date/Time Associated Diagnosis Comments IMAGE GENERIC 12/13/2023 documented in this encounter Results * IMAGE GENERIC (12/13/2023) Anatomical Region Laterality Modality Other 12/13/2023 us Doc Med Group Scanned SCANNING Final Resu lt documented in this encounter Visit Diagnoses Not on filedocumented in this encounter Additional Health Concerns Assessment Noted Time PHQ-9 Depression Total Score: 13 023 3:56 PM CDT documented as of this encounter Care Teams Spanish Lecturer Relationship Specialty Start Date End Date Sanjeev Webster DO [address] [place] [address] PCP - General FAMILY PRACTICE 09/25/20 Dianne Johnson, RN [address] [place] [address] Svp Programmatic Tv (Ambulatory) REGISTERED NURSE 08/14/20 documented as of this encounter
--- OUTSIDE RECORDS SUMMARY | 2024-03-15 00:49 | XMS_ITS | Encounter Summary ---
Author Organization [facility] Address [facility]6 [facility] [place] [address] [place] [address] Care Team Providers Care Silk Opener Name Role Phone Dianne Johnson RN Unavailable [phone] Sanjeev Webster DO Primary Care Provider + Reason for Visit * Reason Comments Ultrasound (SCAN) Encounter Details Date Type Department Care Team (Late st Contact Info) Description 11/26/2023 Scan HEALTH INFO SRVCS Scanned, Doc Med Group Ultrasound (SCAN) Social History Tobacco Use Types Packs/Day [...] any clubs o r organizations such as faith groups, unions, fraternal or athletic groups, or [...] Score 0 12/08/2023 [facility] - Occupational Stress Questionnaire Answer [...] Contact Info) Description 04/14/2024 2:00 PM SUPERVISOR TRAVEL TRAILER Office Visit [facility] Medical Group Multispecialty Care - [facility] 3 [facility], [address] [place] [address] Julio Pulido MD [address] [place] [address] documented as of this encounter Goals Goal Patient Goal Type Associated Problems Recent Progress Patient-Stated? Author Health - patient able to perform ADLs independently General On track(2023 9:49 AM CDT) Dianne Corona RN Note: 12/17/23: Patient stated she is independent with ASL's. Establish Plan for Symptom Monitoring-CHF General On track(2023 11:36 AM SUPERVISOR TRAVEL TRAILER) Dianne Corona RN Note: Patient will recognize [...] Monitoring-COPD General On track(2023 11:36 AM SUPERVISOR TRAVEL TRAILER) Dianne Corona RN Note: Patient will recognize [...] Monitoring-DM General On track(2023 4:33 PM SUPERVISOR TRAVEL TRAILER) Dianne Corona RN Note: Patient will manage [...] Monitoring-HTN General On track(2023 4:33 PM SUPERVISOR TRAVEL TRAILER) Dianne Corona, RN Note: Patient will monitor B/P several times per week , record readings and report to physician or CC if B/P consistently >130/80 Take your medications as prescribed. Follow up with your provider as scheduled. Take your blood pressure at least several times a week if able. documented as of this encounter Procedures Procedure Name Priority Date/Time Associated Diagnosis Comments ULTRASOUND GENERIC (SCAN ORDER) 11/26/2023 documented in this encounter Results * ULTRASOUND GENERIC (SCAN ORDER) (11/26/2023) Anatomical Region Laterality Modality Other 11/26/2023 us Doc Med Group Scanned SCANNING Final Resu lt documented in this encounter Visit Diagnoses Not on filedocumented in this encounter Additional Health Concerns Assessment Noted Time PHQ-9 Depression Total Score: 13 023 3:56 PM CDT documented as of this encounter Care Teams Silk Opener Relationship Specialty Start Date End Date Sanjeev Webster DO [address] [place] [address] PCP - General FAMILY PRACTICE 09/25/20 Dianne Johnson, RN [address] [place] [address] Premix Operator Concentrate (Ambulatory) REGISTERED NURSE 08/14/20 documented as of this encounter
--- OUTSIDE RECORDS SUMMARY | 2024-03-15 00:49 | XMS_ITS | Encounter Summary ---
Author Organization [facility] Address [facility]6 [place] [address] [place] [address] Care Team Providers Care Horn Player Name Role Phone Dianne Johnson RN Unavailable [phone] Sanjeev Webster DO Primary Care Provider + Reason for Visit * Reason Comments Lab (SCAN) Encounter Details Date Type Department Care Team (Latest Contact Info) Description 12/07/2023 Scan HEALTH INFO SRVCS Scanned, Doc Med Group Lab (SCAN) Social History Tobacco Use Types Packs/Day [...] How often do you attend chur or buddhist services? More than 4 times [...] Recorded Patient Health Questionnaire-2 Score 0 12/08/2023 [facility] - Occupational Stress Questionnaire Answer [...] st Contact Info) Description 04/14/2024 2:00 PM RESERVATIONIST Office Visit [facility] Medical Group Multispecialty Care - [facility] 3 [facility], [address] [place] [address] Julio Pulido MD [address] [place] [address] documented as of this encounter Goals Goal Patient Goal Type Associated Problems Recent Progress Patient-Stated? Author Health - patient able to perform ADLs independently General On track(2023 9:49 AM CDT) Dianne Corona RN Note: 12/17/23: Patient stated she is independent with ASL's. Establish Plan for Symptom Monitoring-CHF General On track(2023 11:36 AM RESERVATIONIST) Dianne Corona RN Note: Patient will recognize [...] Symptom Monitoring-COPD General On track(2023 11:36 AM RESERVATIONIST) Dianne Corona RN Note: Patient will recognize [...] Symptom Monitoring-DM General On track(2023 4:33 PM RESERVATIONIST) Dianne Corona RN Note: Patient will manage [...] Symptom Monitoring-HTN General On track(2023 4:33 PM RESERVATIONIST) Dianne Corona, RN Note: Patient will monitor B/P several times per week , record readings and report to physician or CC if B/P consistently >130/80 Take your medications as prescribed. Follow up with your provider as scheduled. Take your blood pressure at least several times a week if able. documented as of this encounter Procedures Procedure Name Priority Date/Time Associated Diagnosis Comments OUTSIDE LAB (SCAN ORDER) 12/07/2023 documented in this encounter Results * OUTSIDE LAB (SCAN ORDER) (12/07/2023) 12/07/2023 us Doc Med Group Scanned SCANNING Final Resu lt documented in this encounter Visit Diagnoses Not on filedocumented in this encounter Additional Health Concerns Assessment Noted Time PHQ-9 Depression Total Score: 13 023 3:56 PM CDT documented as of this encounter Care Teams Horn Player Relationship Specialty Start Date End Date Sanjeev Webster DO [address] [place] [id number] PCP - General FAMILY PRACTICE 09/25/20 Dianne Johnson, RN [address] [place] [address] Cleaner And Dyer (Ambulatory) REGISTERED NURSE 08/14/20 documented as of this encounter
--- OUTSIDE RECORDS SUMMARY | 2024-03-15 00:49 | XMS_ITS | Encounter Summary ---
Author Organization [facility] Address [facility]6 [facility] [place] [address] [place] [address] Care Team Providers Care Auto Winder Name Role Phone Dianne Johnson RN Unavailable [phone] Sanjeev Webster DO Primary Care Provider + Reason for Visit * Reason Onset Date Comments Care Management 12/16/2023 Encounter Details Date Type Department Care Team (Late st Contact Info) Description 12/16/2023 Patient Outreach [facility] Family & Internal Medicine [address] [address] Dianne Johnson, RN [address] [place] [address] Care Management Social History Tobacco [...] How often do you attend chur or hoahaoism services? More than 4 times per year 08/26/2022 Do you belong to any clubs o r organizations such as mandaeism groups, unions, fraternal or athletic groups, or [...] Progress Notes * Dianne Johnson RN - 12/16/2023 1:18 PM CDT Patient left a message to return phone call. Contacted patient. Stated she was informed she will beD[facility]C [facility] with [facility] services. Patient received a text message from [employer] stating her package has been held up. Instructed patient to delete message and do not open it as this is a scam. Patient stated she didn't order anything and was wondering why she received it. Stating she thought it was Ozempic being mailed to her. Patient stated but Ozempic is mailed to the PCP office. Informed patient that PCP MA sent a refill request over to PAP today and [facility]AP will mail Ozempic to PCP office. Once medication is received someone from PCP office will call her. CC will reach out to patient again tomorrow once she is D/C from the hospital to review D/C summary. Patient is agreeableand thanked CC for calling her back. documented in this encounter Plan of Treatment Upcoming Encounters Date Type Department Care Team (Late st Contact Info) Description 04/14/2024 2:00 PM DOG GROOMER Office Visit [facility] Multispecialty Care - [facility] 3 [facility], [address] [place] [phone] Julio Pulido MD 3 [place] [address] documented as of this encounter Goals Goal Patient Goal Type Associated Problems Recent Progress Patient-Stated? Author Health - patient able to perform ADLs independently General On track(2023 9:49 AM CDT) Dianne Corona RN Note: 12/17/23: Patient stated she is independent with ASL's. Establish Plan for Symptom Monitoring-CHF General On track(2023 11:36 AM DOG GROOMER) Dianne Corona RN Note: Patient will recognize [...] Symptom Monitoring-COPD General On track(2023 11:36 AM DOG GROOMER) Dianne Corona RN Note: Patient will recognize [...] Symptom Monitoring-DM General On track(2023 4:33 PM DOG GROOMER) Dianne Corona RN Note: Patient will manage [...] Symptom Monitoring-HTN General On track(2023 4:33 PM DOG GROOMER) No Dianne Johnson RN Note: Patient will [...] documented as of this encounter Care Teams Auto Winder Relationship Specialty Start Date End Date Sanjeev Webster DO [address] [place] [id number] PCP - General FAMILY PRACTICE 09/25/20 Dianne Johnson, RN [address] [place] [address] Shrinker (Ambulatory) REGISTERED NURSE 08/14/20 documented as of this encounter
--- OUTSIDE RECORDS SUMMARY | 2024-03-15 00:49 | XMS_ITS | Encounter Summary ---
Author Organization [facility] Address [facility]6 [place] [address] [place] [address] Care Team Providers Care Staff Attorney Name Role Phone Dianne Johnson RN Unavailable [phone] Sanjeev Webster DO Primary Care Provider + Encounter Details Date Type Department Care Team (Latest Contact Info) Description 12/08/2023 Travel Social History Tobacco Use Types Packs/Day [...] How often do you attend chur or taoist services? More than 4 times per year 08/26/2022 Do you belong to any clubs o r organizations such as roman catholic groups, unions, fraternal or athletic groups, [...] Recorded Patient Health Questionnaire-2 Score 0 12/08/2023 [facility] of Occupat ional Health - Occupational [...] st Contact Info) Description 04/14/2024 2:00 PM MACHINE SHOP HELPER Office Visit [facility] Multispecialty Care - [facility] 3 [facility], [address] [place] [address] Julio Pulido MD 3 [place] [address] documented as of this encounter Goals Goal Patient Goal Type Associated Problems Recent Progress Patient-Stated? Author Health - patient able to perform ADLs independently General On track(2023 9:49 AM CDT) Dianne Corona RN Note: 12/17/23: Patient stated she is independent with ASL's. Establish Plan for Symptom Monitoring-CHF General On track(2023 11:36 AM MACHINE SHOP HELPER) Dianne Corona RN Note: Patient will [...] Symptom Monitoring-COPD General On track(2023 11:36 AM MACHINE SHOP HELPER) Dianne Corona RN Note: Patient will [...] Symptom Monitoring-DM General On track(2023 4:33 PM MACHINE SHOP HELPER) Dianne Corona RN Note: Patient will [...] Symptom Monitoring-HTN General On track(2023 4:33 PM MACHINE SHOP HELPER) Dainne Corona, RN Note: Patient will monitor B/P [...] documented as of this encounter Care Teams Staff Attorney Relationship Specialty Start Date End Date Sanjeev Webster DO [address] [place] [id number] PCP - General FAMILY PRACTICE 09/25/20 Dianne Johnson, RN [address] [place] [address] Bryologist (Ambulatory) REGISTERED NURSE 08/14/20 documented as of this encounter
--- OUTSIDE RECORDS SUMMARY | 2024-03-15 00:49 | XMS_ITS | Encounter Summary ---
Author Organization [facility] Address [facility]6 [place] [address] [place] [address] Care Team Providers Care Residential Treatment Staff Name Role Phone Dianne Johnson RN Unavailable [phone] Sanjeev Webster DO Primary Care Provider + Reason for Visit * Reason Comments Vascular Lab Study (SCAN) Encounter Details Date Type Department Care Team (Late st Contact Info) Description 12/11/2023 Scan HEALTH INFO SRVCS Scanned, Doc Med Group Vascular Lab Study (SCAN) Social History Tobacco Use Types Packs/Day [...] often do you attend chur ch or baptism services? More than 4 times per year 08/26/2022 Do you belong to any clubs o r organizations such as zoroastrianism groups, unions, fraternal or athletic groups, or [...] Recorded Patient Health Questionnaire-2 Score 0 12/08/2023 [facility] of Occupat ional Health - Occupational [...] st Contact Info) Description 04/14/2024 2:00 PM ROCKET SCIENTIST Office Visit [facility] Multispecialty Care - [facility] 3 [facility], [address] [place] [address] Julio Pulido MD 3 [place] [address] documented as of this encounter Goals Goal Patient Goal Type Associated Problems Recent Progress Patient-Stated? Author Health - patient able to perform ADLs independently General On track(2023 9:49 AM CDT) Dianne Corona RN Note: 12/17/23: Patient stated she is independent with ASL's. Establish Plan for Symptom Monitoring-CHF General On track(2023 11:36 AM ROCKET SCIENTIST) Dianne Corona RN Note: Patient will [...] Symptom Monitoring-COPD General On track(2023 11:36 AM ROCKET SCIENTIST) Dianne Corona RN Note: Patient will [...] Symptom Monitoring-DM General On track(2023 4:33 PM ROCKET SCIENTIST) Dianne Corona RN Note: Patient will [...] Symptom Monitoring-HTN General On track(2023 4:33 PM ROCKET SCIENTIST) Dianne Corona, RN Note: Patient will monitor B/P several times per week , record readings and report to physician or CC if B/P consistently >130/80 Take your medications as prescribed. Follow up with your provider as scheduled. Take your blood pressure at least several times a week if able. documented as of this encounter Procedures Procedure Name Priority Date/Time Associated Diagnosis Comments VASCULAR LAB GENERIC (SCAN ORDER) 12/11/2023 documented in this encounter Results * VASCULAR LAB GENERIC (SCAN ORDER) (12/11/2023) 12/11/2023 us Doc Med Group Scanned SCANNING Final Resu lt documented in this encounter Visit Diagnoses Not on filedocumented in this encounter Additional Health Concerns Assessment Noted Time PHQ-9 Depression Total Score: 13 023 3:56 PM CDT documented as of this encounter Care Teams Residential Treatment Staff Relationship Specialty Start Date End Date Sanjeev Webster DO [address] [place] [id number] PCP - General FAMILY PRACTICE 09/25/20 Dianne Johnson, RN [address] [place] [address] Motion Picture Scene Builder (Ambulatory) REGISTERED NURSE 08/14/20 documented as of this encounter
--- OUTSIDE RECORDS SUMMARY | 2024-03-15 00:50 | XMS_ITS | Encounter Summary ---
Author Organization [facility] Address [facility]6 [facility] [place] [address] [place] [address] Care Team Providers Care Prep Cook Name Role Phone Dianne Johnson RN Unavailable [phone] Sanjeev Webster DO Primary Care Provider + Reason for Visit * Reason Onset Date Comments Follow Up Call 10/21/2023 Bilateral leg cr amps at night. Encounter Details Date Type Department Care Team (Late st Contact Info) Description 10/21/2023 Telephone [facility] Family & Internal Medicine [address] [address] Sanjeev Webster DO [address] [place] [address] Follow Up Call (Bilateral leg cramps at night.) Social History Tobacco Use Types Packs/Day Years [...] How often do you attend chur or scientologist services? More than 4 times per year [...] Recorded Patient Health Questionnaire-2 Score 1 08/06/2023 [facility]at ionnv Health - Occupational Stress Questionnaire Answer Date [...] Assessment Author Status No 08/26/2022 7:46 PM Inidana Call RN Active * Are you blind [...] Progress Notes * Yenifer Ingram MA - 10/23/2023 7:16 AM CDT Patient was notified of that in previous call * MARU Hodge - 10/22/2023 2:28 PM CDT If symptoms return, she can let us know * Yenifer Ingram MA - 10/22/2023 1:27 PM CDT Spoke with patient and she states her swelling has went down and she has not had leg cramps in a few days. She has started taking the gabapentin TID. She is taking the statin. * MARU Hodge - 10/22/2023 12:44 PM CDT This is a little confusing Did she resume the simvastatin and the leg cramps return? Is she having any SOB? Swelling in lower extremities worse? * Dianne Johnson RN - 10/21/2023 3:51 PM CDT Please address the following: Reports cramps in legs really bad at night. Stated she is using a heating pad and voltaren gel and it helps some. Reviewed CC note from 09/16/23. PCP held Simvastatin for two weeks. Patient can't remember if it helped or not. Spoke to Izzy and stated she held Simvastatin for two weeks. Around 10/09/23 PCP office informed her to resume simvastatin and take Super B complex to see if this helps with leg pain. Izzy is giving this to her in the morning. She wants to know if it will make a difference giving it to her at night. FYI: Reports 5 lb weight gain in 3 weeks. She stated it's hard to say if it's related to increased fluid. Reports a little increase in swelling below the knees. Hands are no longer swollen and shecan bend her hands okay. Denies worsening sob. documented in this encounter Plan of Treatment Upcoming Encounters Date Type Department Care Team (Late st Contact Info) Description 04/14/2024 2:00 PM ACCIDENT INVESTIGATOR Office Visit [facility] Multispecialty Care - [facility] 3 [facility], [address] [place] [phone] Julio Pulido MD 3 [place] [address] documented as of this encounter Goals Goal Patient Goal Type Associated Problems Recent Progress Patient-Stated? Author Health - patient able to perform ADLs independently General On track(2023 9:49 AM CDT) Dianne Corona, RN Note: 12/17/23: Patient stated she is independent with ASL's. Establish Plan for Symptom Monitoring-CHF General On track(2023 11:36 AM ACCIDENT INVESTIGATOR) Dianne Corona, RN Note: Patient will recognize [...] Symptom Monitoring-COPD General On track(2023 11:36 AM ACCIDENT INVESTIGATOR) Dianne Corona RN Note: Patient will recognize [...] Symptom Monitoring-DM General On track(2023 4:33 PM ACCIDENT INVESTIGATOR) Dianne Corona RN Note: Patient will manage [...] Symptom Monitoring-HTN General On track(2023 4:33 PM ACCIDENT INVESTIGATOR) Dianne Corona RN Note: Patient will monitor [...] documented as of this encounter Care Teams Prep Cook Relationship Specialty Start Date End Date Sanjeev Webster DO [address] [place] [id number] PCP - General FAMILY PRACTICE 09/25/20 Dianne Johnson, RN [address] [place] [address] Systems Spec (Ambulatory) REGISTERED NURSE 08/14/20 documented as of this encounter
--- OUTSIDE RECORDS SUMMARY | 2024-03-15 00:50 | XMS_ITS | Encounter Summary ---
Author Organization [facility] Address [facility]6 [facility] [place] [address] [place] [address] Care Team Providers Care Otolaryngology Teacher Name Role Phone Dianne Johnson RN Unavailable [phone] Sanjeev Webster DO Primary Care Provider + Encounter Details Date Type Department Care Team (Latest Contact Info) Description 11/19/2023 Scan HEALTH INFO SRVCS Scanned, Doc Med [...] often do you attend chur ch or taoism services? More than 4 times per year [...] Recorded Patient Health Questionnaire-2 Score 1 08/06/2023 [facility] of Occupat ional Health - [...] st Contact Info) Description 04/14/2024 2:00 PM SLEEP SCIENTIST Office Visit [facility] Multispecialty Care - [facility] 3 [facility], [address] [place] [address] Julio Pulido MD 3 [place] [address] documented as of this encounter Goals Goal Patient Goal Type Associated Problems Recent Progress Patient-Stated? Author Health - patient able to perform ADLs independently General On track(2023 9:49 AM CDT) Dianne Corona RN Note: 12/17/23: Patient stated she is independent with ASL's. Establish Plan for Symptom Monitoring-CHF General On track(2023 11:36 AM SLEEP SCIENTIST) Dianne Corona RN Note: Patient will [...] Symptom Monitoring-COPD General On track(2023 11:36 AM SLEEP SCIENTIST) Dianne Corona RN Note: Patient will [...] Symptom Monitoring-DM General On track(2023 4:33 PM SLEEP SCIENTIST) Dianne Corona, RN Note: Patient will manage [...] Symptom Monitoring-HTN General On track(2023 4:33 PM SLEEP SCIENTIST) Dianne Corona, RN Note: Patient will [...] documented as of this encounter Care Teams Otolaryngology Teacher Relationship Specialty Start Date End Date Sanjeev Webster DO [address] [place] [id number] PCP - General FAMILY PRACTICE 09/25/20 Dianne Johnson RN [address] [place] [address] Pipe Crew Foreman (Ambulatory) REGISTERED NURSE 6/8/21 documented as of this encounter
--- OUTSIDE RECORDS SUMMARY | 2024-03-15 00:50 | XMS_ITS | Encounter Summary ---
Author Organization [facility] Address [facility]6 [facility] [place] [address] [place] [address] Care Team Providers Care Senior Interactive Producer Name Role Phone Dianne Johnson RN Unavailable [phone] Sanjeev Webster DO Primary Care Provider + Encounter Details Date Type Department Care Team (Latest Contact Info) Description 10/19/2023 Travel Social History Tobacco Use Types Packs/Day [...] any clubs o r organizations such as holiness groups, unions, fraternal or athletic groups, or [...] Recorded Patient Health Questionnaire-2 Score 1 08/06/2023 [facility] of Occupat ional Health - [...] st Contact Info) Description 04/14/2024 2:00 PM ASH WORKER Office Visit [facility] Multispecialty Care - [facility] 3 [facility], [address] [place] [address] Julio Pulido MD 3 [place] [address] documented as of this encounter Goals Goal Patient Goal Type Associated Problems Recent Progress Patient-Stated? Author Health - patient able to perform ADLs independently General On track(2023 9:49 AM CDT) Dianne Corona RN Note: 12/17/23: Patient stated she is independent with ASL's. Establish Plan for Symptom Monitoring-CHF General On track(2023 11:36 AM ASH WORKER) Dianne Corona RN Note: Patient will recognize [...] Symptom Monitoring-COPD General On track(2023 11:36 AM ASH WORKER) Dianne Corona RN Note: Patient will recognize [...] Symptom Monitoring-DM General On track(2023 4:33 PM ASH WORKER) Dianne Corona RN Note: Patient will manage [...] Symptom Monitoring-HTN General On track(2023 4:33 PM ASH WORKER) Dianne Corona, RN Note: Patient will monitor [...] documented as of this encounter Care Teams Senior Interactive Producer Relationship Specialty Start Date End Date Sanjeev Webster DO [address] [place] [id number] PCP - General FAMILY PRACTICE 09/25/20 Dianne Johnson, RN [address] [place] [address] Mental Health Director (Ambulatory) REGISTERED NURSE 08/14/20 documented as of this encounter
--- OUTSIDE RECORDS SUMMARY | 2024-03-15 00:50 | XMS_ITS | Encounter Summary ---
Author Organization [facility] Address [facility] [place] [address] [place] [address] Care Team Providers Care Director Of Business Development Name Role Phone Dianne Johnson RN Unavailable [phone] Sanjeev Webster DO Primary Care Provider + Reason for Referral * Consultation (Routine) - Closed Specialty Diagnoses / Procedures Referred By Ian malagon Referred To Contact HEART & VASCULAR CARE Diagnoses Atrial fibrillation with RVR ([facility]) Chronic heart failure with preserved ejection fraction (HFpEF) ([facility]) Procedures OFFICE/OUTPATIENT NEW LOW MDM 30-44 MINUTES OFFICE/OUTPT VISIT,NEW,LEVL IV OFFICE/OUTPT VISIT,NEW,LEVL V OFFICE/OUTPT VISIT,EST,LEVL III OFFICE/OUTPT VISIT,EST,LEVL IV OFFICE/OUTPT VISIT,EST,LEVL V Sanjeev Webster DO [address] [place] [address] Phone: tel: fax: [facility] - Cardiology [id number] [facility] [address] [address] Phone: tel: fax: Referral ID Status Reason Start Date Expiration Date V isits Requested Visits Authorized [id number] Closed Specialty Services 11/24/2023 03/08/2024 12 12 Scheduling Instructions Cardiology in [place], used to be Dr. Dekalb Reason for Visit * Reason Comments TCM The patient was admi tted at [facility]. Encounter Details Date Type Department Care Team (Late st Contact Info) Description 11/19/2023 10:40 AM CDT Office Visit [facility] Medical Group Family & Internal Medicine [address] [phone] Sanjeev Webster DO [address] [place] [phone] TCM (The patient was admitted at [facility]. ) Social History Tobacco Use Types Packs/Day [...] Recorded Patient Health Questionnaire-2 Score 1 08/06/2023 [facility] - Occupational Stress Questionnaire Answer Date Recorded [...] Sign Reading Time Taken Comments Blood Pressure 130/82 11/19/2023 10:55 AM CDT Pulse 56 11/19/2023 10:55 AM CDT Temperature 36.2 ??C (97.2 ??F) 11/19/2023 1 0:55 AM CDT Respiratory Rate 16 11/19/2023 10:5 5 AM CDT Oxygen Saturation 97% 11/19/2023 10: 55 AM CDT Inhaled Oxygen Concentration - - Weight 82.9 kg (182 lb 12.8 oz) 024 10:55 AM CDT Height 165.1 cm (5' 5 ) 11/19/2023 10:5 5 AM CDT Body Mass Index 30.42 11/19/2023 10:55 AM CDT documented in this encounter Functional [...] documented in this encounter Progress Notes * Sanjeevmaribel Webster, DO - 11/19/2023 10:40 AM CDT Images from the original note were not included. GENERAL OFFICE VISIT Encounter Date: 11/19/2023 Chief Complaint: 78-year-old female presents for TCM (The patient was admitted at [facility]. ) History of Present Illness: Transitional Care Note: Pt was admitted on: 10/31/23 Pt was discharged on: 11/03/23 Admit Diagnosis: Palpitations, A Fib with RVR Discharge Diagnosis: See above Initial Nursing contact: See telephone encounter on: 11/10/[address] Weathers was reviewed In summary: Pt had palpitations and was found to be in A Fib with RVR. Pt was given Cardizem drip which returned her to SR. She had her metoprolol increased. Pt was mildly decreased on sodium. Otherwise pt was stable. Since Discharge: Radha has been doing well. No complaints today. Pt needs her A1c checked today. Office Visit on 11/19/2023 Component Date Value Ref Range Status HGB A1C 11/19/2023 6.8 % Final PROTIME WHOLE BLOOD 11/19/2023 2.6 Final ROS: Review of Systems Constitutional: Negative for fever. Respiratory: Negative for shortness of breath. Cardiovascular: Negative for chest pain. Medications: Current Outpatient Medications: acetaminophen (TYLENOL) 500 MG tablet, Take 1 tablet (500 mg total) by mouth daily as needed. No more then 2500 mg per day., Disp: , Rfl: albuterol sulfate HFA 108 (90 Base) MCG/ACT inhaler, INHALE 2 PUFFS BY MOUTH EVERY 6 HOURS NEEDED FOR WHEEZING, Disp: 18 g, Rfl: 5 ALPRAZolam (XANAX) 0.5 MG tablet, TAKE 1/2 (ONE-HALF) TABLET BY MOUTH NIGHTLY NEEDED FOR SLEEP, Disp: 15 tablet, Rfl: 0 Cholecalciferol (VITAMIN D3) 25 MCG (1000 UT) Cap, Take 1 capsule (1,000 Units total) by mouth daily., Disp: , Rfl: cinacalcet (SENSIPAR) 30 MG tablet, Take 0.5 tablets (15 mg total) by mouth daily., Disp: , Rfl: ferrous sulfate, 65 mg elemental, 325 (65 FE) MG tablet, Take 1 tablet (325 mg total) by mouth daily with breakfast., Disp: , Rfl: furosemide (LASIX) 20 MG tablet, Take 1 tablet (20 mg total) by mouth daily., Disp: 30 tablet, Rfl:0 gabapentin (NEURONTIN) 300 MG capsule, take 1 [...] (25 mg total) by mouth daily., Disp: , Rfl: omeprazole (PRILOSEC) 40 MG capsule, Take 1 capsule (40 mg total) by mouth daily., Disp: 90 capsule, Rfl: 1 potassium chloride CR (K-TAB) 10 MEQ Tab CR tablet, Take 1 tablet by mouth once daily, Disp: 90 tablet, Rfl: 0 Semaglutide (OZEMPIC, 0.25 OR 0.5 MG/DOSE, SC), [...] mouth daily., Disp: , Rfl: warfarin (COUMADIN) 5 MG tablet, Take 1 tablet (5 mg total) by mouth daily., Disp: 30 tablet, Rfl: 1 B Complex Cap capsule, Take 1 capsule by mouth daily., Disp: , Rfl: Blood Glucose Monitoring Suppl (ONE PeopleGoal ULTRA 2) w/Device Kit, 1 Device by Does not apply route daily., Disp: 1 kit, Rfl: 0 iron polysaccharides (NIFEREX) 150 MG capsule, Take 1 capsule (150 mg total) by mouth daily. (Patient not taking: Reported on 11/19/2023), Disp: 30 capsule, Rfl: 2 warfarin (COUMADIN) 2 MG tablet, Take 1 tablet (2 mg total) by mouth daily. (Patient not taking: Reported on 11/12/2023), Disp: 30 tablet, Rfl: 1 warfarin (COUMADIN) 6 MG tablet, Take 1 tablet (6 mg total) by mouth daily. (Patient not taking: Reported on 11/19/2023), Disp: 90 tablet, Rfl: 0 Current Outpatient Medications on File Prior to Visit Medication Sig acetaminophen (TYLENOL) 500 MG tablet Take 1 tablet (500 mg total) by mouth daily as needed. No more then 2500 mg per day. albuterol sulfate HFA 108 (90 Base) MCG/ACT inhaler INHALE 2 PUFFS BY MOUTH EVERY 6 HOURS NEEDEDFOR WHEEZING ALPRAZolam (XANAX) 0.5 MG tablet TAKE 1/2 (ONE-HALF) TABLET BY MOUTH NIGHTLY NEEDED FOR SLEEP Cholecalciferol (VITAMIN D3) 25 MCG (1000 UT) Cap Take 1 capsule (1,000 Units total) by mouth daily. cinacalcet (SENSIPAR) 30 MG tablet Take 0.5 tablets (15 mg total) by mouth daily. ferrous sulfate, 65 mg elemental, 325 (65 FE) MG tablet Take 1 tablet (325 mg total) by mouth dailywith breakfast. furosemide (LASIX) 20 MG tablet Take 1 tablet (20 mg total) by mouth daily. gabapentin (NEURONTIN) 300 MG capsule take 1 capsule by mouth three times daily Glucose Blood (BLOOD GLUCOSE TEST STRIPS) Strip 1 Device by Does not apply route daily. Lancets (ONETOUCH ULTRASOFT) lancets 1 each by Other route as needed. Use as instructed methIMAzole (TAPAZOLE) 5 MG tablet Take 1 tablet (5 mg total) by mouth daily. metoprolol succinate ER (TOPROL-XL) 25 MG 24 hr tablet Take 1 tablet (25 mg total) by mouth daily. omeprazole (PRILOSEC) 40 MG capsule Take 1 capsule (40 mg total) by mouth daily. potassium chloride CR (K-TAB) 10 MEQ Tab CR tablet Take 1 tablet by mouth once daily Semaglutide (OZEMPIC, 0.25 OR 0.5 MG/DOSE, SC) [...] mcg total) by mouth daily. warfarin (COUMADIN) 5 MG tablet Take 1 tablet (5 mg total) by mouth daily. B Complex Cap capsule Take 1 capsule by mouth daily. Blood Glucose Monitoring Suppl (ONE TOUCH ULTRA 2) w/Device Kit 1 Device by Does not apply route daily. iron polysaccharides (NIFEREX) 150 MG capsule Take 1 capsule (150 mg total) by mouth daily. (Patient not taking: Reported on 11/19/2023) warfarin (COUMADIN) 2 MG tablet Take 1 tablet (2 mg total) by mouth daily. (Patient not taking: Reported on 11/12/2023) warfarin (COUMADIN) 6 MG tablet Take 1 tablet (6 mg total) by mouth daily. (Patient not taking: Reported on 11/19/2023) No current facility-administered medications on file prior [...] test Chronic anticoagulation Coronary artery disease involving iqugmiut coronary artery of iqugmiut heart without angina pectoris H/O mechanical aortic valve replacement Hypertensive heart disease with congestive heart failure ([facility]) LBBB (left bundle branch block) Myopathy VAZQUEZ (obstructive sleep apnea) Paroxysmal atrial flutter ([facility]) Benign hypertension with CKD (chronic kidney disease) stage III ([facility]) Memory deficits Hearing deficit, bilateral History of cataract extraction, unspecified laterality Vitamin D deficiency Hypercalcemia Chronic frontal sinusitis Constipation, unspecified constipation type Chronic bilateral low back pain without sciatica Iron deficiency anemia, unspecified iron deficiency anemia type Disorder of skin of trunk Anemia Body mass index (BMI) 31.0-31.9, adult 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[facility]) Benign hypertension with stage 3b chronic kidney disease ([facility]) Cobalamin deficiency Compression fracture of thoracic vertebra ([facility]) Depression Diabetic polyneuropathy ([facility]) Disorder of rotator cuff Diverticular disease Dysphagia Elevated troponin Gastroesophageal reflux disease without esophagitis Hyperlipidemia, unspecified hyperlipidemia type Vascular dementia ([facility]) Unknown and unspecified causes of morbidity Syncope, unspecified syncope type Wrist joint pain Requires lifelong warfarin therapy Hyperparathyroidism ([facility]) Presence of prosthetic heart valve Plantar fascial fibromatosis Peripheral neuropathy Parathyroid adenoma Polymyalgia rheumatica ([facility]) Osteoporosis Numbness Muscle cramps Closed stable burst fracture of sixth thoracic vertebra, initial encounter ([facility]) Chest pain Contusion of scalp Knee pain Localized, primary osteoarthritis Osteoarthritis of knee Traumatic closed displaced fracture of distal end of radius Shoulder joint pain Hyperlipidemia associated with type 2 diabetes mellitus ([facility]) Hematoma Anxiety Diastolic heart failure ([facility]) Internal hemorrhoids Leukoencephalopathy Major depression single episode, in partial remission ([facility]) Metacarpal bone fracture Mitral valve disorder Peripheral arterial occlusive disease ([facility]) Primary osteoarthritis involving multiple joints Vision loss COPD (chronic obstructive pulmonary disease) ([facility]) Diarrhea Drug-induced constipation H/O mechanical aortic valve replacement Age-related osteoporosis with current pathological fracture Care Management Physical deconditioning Chronic heart failure with preserved ejection fraction (HFpEF) ([facility]) Paroxysmal atrial fibrillation ([facility]) Hypertension associated with type 2 diabetes mellitus ([facility]) Encounter for prophylactic measures, unspecified Graves' disease Cirrhosis of liver without ascites, unspecified hepatic cirrhosis type ([facility]) Stage 3b chronic kidney disease ([facility]) OLIVE (acute kidney injury) ([facility]) Heart failure with mildly reduced ejection fraction (HFmrEF) ([facility]) Hyperthyroidism 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 Anxiety Atrial fibrillation with rapid ventricular response ([facility]) 08/22/2020 Atrial flutter ([facility]) Cataract Chronic anticoagulation due to mechanical heart valve Chronic pain Diabetes mellitus ([facility]) H/O mechanical aortic valve replacement 2003 Hypertension [...] Special Diet No Caffeine Concern Yes Social Determinants of Health Financial Resource Strain: High Risk [...] 10 min Stress: Stress Concern Present (08/26/2022) [facility] [place] [facility] - Occupational Stress Questionnaire Feeling of Stress : To some extent Social Connections: Moderately Isolated (08/26/2022) Social Connection and Isolation Panel [NHANES] Frequency of Communication with Friends and Family: Three times a week Frequency of Social Gatherings with Friends and Family: Three times a week Attends Sabianism Services: More than 4 times per year [...] partnership data on file Objective: Filed Vitals: 11/19/23 1055 BP: 130/82 Pulse: (!) 56 Resp: 16 Temp: 97.2 ??F (36.2 ??C) TempSrc: Skin SpO2: 97% Weight: 82.9 kg (182 lb 12.8 oz) Height: 1.651 m (5' 5 ) Physical Exam Vitals and nursing note reviewed. Constitutional: Appearance: She is well-developed. HENT: Head: Normocephalic and atraumatic. Right Ear: External ear normal. Left Ear: External ear normal. Eyes: Conjunctiva/sclera: Conjunctivae normal. Cardiovascular: Rate and Rhythm: Regular rhythm. Bradycardia present. Heart sounds: Normal heart sounds. No murmur heard. No friction rub. No gallop. Pulmonary: Effort: Pulmonary effort is normal. Breath sounds: Normal breath sounds. Abdominal: Palpations: Abdomen is soft. Tenderness: There is no abdominal tenderness. Musculoskeletal: Cervical back: Neck supple. Skin: General: Skin is warm and dry. Neurological: Mental Status: She is alert. Mental status is at baseline. Assessment & Plan: Radha was seen today for tcm. Diagnoses and all orders for this visit: Atrial fibrillation with RVR ([facility]) - Ambulatory referral to Cardiology, Adult (OTHER) extermination supervisor (current) use of anticoagulants - PROTIME/INR, FINGERSTICK - COLLECT.CAPILLARY (FNGR,HEEL,EAR) Type 2 diabetes mellitus with stage 3b chronic kidney disease, without long-term current use of insulin ([facility]) - HEMOGLOBIN, GLYCOSYLATED - COLLECT.CAPILLARY (FNGR,HEEL,EAR) Other chronic pain - HYDROcodone-acetaminophen (NORCO) 5-325 MG tablet; Take 1-2 tablets by mouth every 6 (six) hours as needed for Pain. Indications: Chronic Pain Chronic heart failure with preserved ejection fraction (HFpEF) ([facility]) - Ambulatory referral to Cardiology, Adult (OTHER) Discussion & Summary: 1. Medications/DME - Continue current medications. 2. Lab/Diagnostics - See orders. Will repeat labs at next OV in 3-4 weeks. 3. Education - Current treatment discussed and patient education given as appropriate. 4. Referrals - Will refer to new music orchestrator (Santos) as requested by pt. 5. RTC - 1 month(s) Sanjeev Webster DO documented in this encounter Plan of Treatment Upcoming Encounters Date Type Department Care Team (Late st Contact Info) Description 04/14/2024 2:00 PM HOT MILL OPERATOR Office Visit [facility] Group Multispecialty Care - [address], [address] [place] [phone] Julio Pulido MD [address] [place] [address] Scheduled Referrals Name Type Priority Associated Diagnoses Orde r Schedule Ambulatory referral to Cardiology, Adult (OTHER) Referral Routine Atrial fibrillation with RVR ([facility]) Chronic heart failure with preserved ejection fraction (HFpEF) ([facility]) Ordered: 11/19/2023 documented as of this encounter Goals Goal Patient Goal Type Associated Problems Recent Progress Patient-Stated? Author Health - patient able to perform ADLs independently General On track(2023 9:49 AM CDT) Dianne Corona RN Note: 12/17/23: Patient stated she is independent with ASL's. Establish Plan for Symptom Monitoring-CHF General On track(2023 11:36 AM HOT MILL OPERATOR) Dianne Corona RN Note: Patient will [...] Symptom Monitoring-COPD General On track(2023 11:36 AM HOT MILL OPERATOR) Dianne Corona RN Note: Patient will [...] Symptom Monitoring-DM General On track(2023 4:33 PM HOT MILL OPERATOR) Dianne Corona RN Note: Patient will [...] Symptom Monitoring-HTN General On track(2023 4:33 PM HOT MILL OPERATOR) Dianne Corona RN Note: Patient will [...] Date/Time Associated Diagnosis Comments COLLECT.CAPILLARY (FNGR,HEEL,EAR) Routine 11/19/2023 10:30 AM CDT [facility] (current) use of anticoagulants Type 2 diabetes mellitus with stage 3b chronic kidney disease, without long-term current use of insulin ([facility]) PROTHROMBIN TIME, FINGERSTICK Routine 11/19/2023 extermination supervisor (current) use of anticoagulants HEMOGLOBIN, GLYCOSYLATED Routine 11/19/2023 Type 2 diabetes mellitus with stage 3b chronic kidney disease, without long-term current use of insulin ([facility]) documented in this encounter Results * PROTIME/INR, FINGERSTICK (11/19/2023) PROTIME WHOLE BLOOD 2.6 [facility] 11/19/2023 us Sanjeev Webster DO LABORATORY Final Re sult Performing Organization Address [facility] [place] [address], * HEMOGLOBIN, GLYCOSYLATED (11/19/2023) HGB A1C 6.8 % [facility] 11/19/2023 Sanjeev Cardonaefneel DO LABORATORY Final Re sult Performing Organization Address [facility] de Phone Number [address] [address], documented in this encounter Visit Diagnoses Diagnosis Atrial fibrillation with RVR ([facility])- Primary Atrial fibrillation [facility] (current) use of anticoagulants Long-term (current) use of anticoagulants Type 2 diabetes mellitus with stage 3b chronic kidney disease, without long-term current use of insulin ([facility]) Other chronic pain Chronic heart failure with preserved ejection fraction (HFpEF) ([facility]) documented in this encounter Additional Health Concerns Assessment Noted Time PHQ-9 Depression Total Score: 13 023 3:56 PM CDT documented as of this encounter Care Teams Director Of Business Development Relationship Specialty Start Date End Date Sanjeev Webster DO [address] [place] [id number] PCP - General FAMILY PRACTICE 09/25/20 Dianne Johnson, RN [address] [place] [address] Poultry Processor (Ambulatory) REGISTERED NURSE 08/14/20 documented as of this encounter
--- OUTSIDE RECORDS SUMMARY | 2024-03-15 00:50 | XMS_ITS | Encounter Summary ---
Author Organization [facility] Address [facility] [place], [place] [id number] [place] [address] Care Team Providers Care Call Center Supervisor Name Role Phone Dianne Johnson RN Unavailable [phone] Sanjeev Webster DO Primary Care Provider + Reason for Visit * Reason Onset Date Comments Results 11/17/2023 Encounter Details Date Type Department Care Team (Late st Contact Info) Description 11/17/2023 Telephone [facility] Medical Group Family & Internal Medicine [id number] [place] [address] Sanjeev Webster DO [facility] [place] [address] Results Social History Tobacco Use [...] How often do you attend chur or yarsanism services? More than 4 times [...] Recorded Patient Health Questionnaire-2 Score 1 08/06/2023 [facility] of Occupat ional Health - Occupational Stress [...] Progress Notes * Yenifer Ingram MA - 11/17/2023 2:47 PM CDT Spoke with Izzy and informed her of changes. * Yenifer Batista - 11/17/2023 2:44 PM CDT Daughter Izzy called back but no one was available for her call. Please call back to [phone] * Yenifer Ingram MA - 11/17/2023 2:31 PM CDT Spoke with patient and informed her of results. The patient v/u. LMOM for Izzy to return my call to inform her dose change. ----- Message from Dr. Sanjeev Webster sent at 11/17/2023 12:50 PM CDT ----- Increase warfarin to 7 mg daily and recheck at next OV. documented in this encounter Plan of Treatment Upcoming Encounters Date Type Department Care Team (Late st Contact Info) Description 04/14/2024 2:00 PM WOOD VENEER TAPER Office Visit [facility] Multispecialty Care - [facility] [address] [facility], [address] [place] [address] Julio Pulido MD [address] [place] [phone] documented as of this encounter Goals Goal Patient Goal Type Associated Problems Recent Progress Patient-Stated? Author Health - patient able to perform ADLs independently General On track(2023 9:49 AM CDT) Dianne Corona RN Note: 12/17/23: Patient stated she is independent with ASL's. Establish Plan for Symptom Monitoring-CHF General On track(2023 11:36 AM WOOD VENEER TAPER) Dianne Corona RN Note: Patient will recognize [...] Symptom Monitoring-COPD General On track(2023 11:36 AM WOOD VENEER TAPER) Dianne Corona RN Note: Patient will recognize [...] Symptom Monitoring-DM General On track(2023 4:33 PM WOOD VENEER TAPER) Dianne Corona RN Note: Patient will manage [...] Symptom Monitoring-HTN General On track(2023 4:33 PM WOOD VENEER TAPER) No Dianne Johnson RN Note: Patient will [...] documented as of this encounter Care Teams Call Center Supervisor Relationship Specialty Start Date End Date Sanjeev Webster DO [address] [place] [id number] PCP - General FAMILY PRACTICE 09/25/20 Dianne Johnson, RN [address] [place] [address] Coil Taper (Ambulatory) REGISTERED NURSE 08/14/20 documented as of this encounter
--- OUTSIDE RECORDS SUMMARY | 2024-03-15 00:50 | XMS_ITS | Encounter Summary ---
Author Organization [facility] Address [facility]6 [facility] [address] [place] [address] Care Team Providers Care Grocery Store Associate Name Role Phone Dianne Johnson RN Unavailable [phone] Sanjeev Webster DO Primary Care Provider + Reason for Visit * Reason Comments Anticoagulation Encounter Details Date Type Department Care Team (Late st Contact Info) Description 11/16/2023 11:20 AM CDT Allied Health/Nurse Visit [facility] Medical Group Family & Internal Medicine [address] [address] Sanjeev Webster DO [facility] [place] [address] Anticoagulation Social History Tobacco Use [...] Recorded Patient Health Questionnaire-2 Score 1 08/06/2023 [facility] Occupat ional Health - [...] st Contact Info) Description 04/14/2024 2:00 PM PAINT AND TABLE EDGER Office Visit [facility] Medical Group Multispecialty Care - [facility] 3 [facility], [address] [place] [address] Julio Pulido MD 3 [place] [address] documented as of this encounter Goals Goal Patient Goal Type Associated Problems Recent Progress Patient-Stated? Author Health - patient able to perform ADLs independently General On track(2023 9:49 AM CDT) Dianne Corona RN Note: 12/17/23: Patient stated she is independent with ASL's. Establish Plan for Symptom Monitoring-CHF General On track(2023 11:36 AM PAINT AND TABLE EDGER) Dianne Corona RN Note: Patient will recognize [...] Symptom Monitoring-COPD General On track(2023 11:36 AM PAINT AND TABLE EDGER) Dianne Corona RN Note: Patient will recognize [...] Symptom Monitoring-DM General On track(2023 4:33 PM PAINT AND TABLE EDGER) Dianne Corona RN Note: Patient will manage [...] Symptom Monitoring-HTN General On track(2023 4:33 PM PAINT AND TABLE EDGER) Dianne Corona RN Note: Patient will monitor [...] Date/Time Associated Diagnosis Comments COLLECT.CAPILLARY (FNGR,HEEL,EAR) Routine 11/16/2023 11:47 AM CDT USP (current) use of anticoagulants PROTHROMBIN TIME, FINGERSTICK Routine 11/16/2023 USP (current) use of anticoagulants documented in this encounter Results * PROTIME/INR, FINGERSTICK (11/16/2023) INR WHOLE BLOOD 2.00 MG-S [facility] 11/16/2023 us Sanjeev Webster DO LABORATORY Final Re sult [facility] [address] [place] [address], documented in this encounter Visit Diagnoses Diagnosis supervisor intermediates (current) use of anticoagulants- Primary Long-term (current) use of anticoagulants documented in this encounter Additional Health Concerns Assessment Noted Time PHQ-9 Depression Total Score: 13 023 3:56 PM CDT documented as of this encounter Care Teams Grocery Store Associate Relationship Specialty Start Date End Date Sanjeev Webster DO [address] [place] [address] PCP - General FAMILY PRACTICE 09/25/20 Dianne Johnson, RN [address] [place] [address] Advertising Copy Writer (Ambulatory) REGISTERED NURSE 08/14/20 documented as of this encounter
--- OUTSIDE RECORDS SUMMARY | 2024-03-15 00:50 | XMS_ITS | Encounter Summary ---
Author Organization [facility] Address [facility]6 [facility]. [place], [place] [address] [place] [address] Care Team Providers Care Service Center Representative Name Role Phone Dianne Johnson RN Unavailable [phone] Sanjeev Montez DO Primary Care Provider + Reason for Referral * Consultation (Routine) - Authorized Specialty Diagnoses / Procedures Referred By Ian t Referred To Contact ENDOCRINOLOGY Diagnoses Hyperthyroidism Procedures OFFICE/OUTPATIENT NEW LOW MDM 30-44 MINUTES OFFICE/OUTPT VISIT,NEW,LEVL IV OFFICE/OUTPT VISIT,NEW,LEVL V OFFICE/OUTPT VISIT,EST,LEVL III OFFICE/OUTPT VISIT,EST,LEVL IV OFFICE/OUTPT VISIT,EST,LEVL V Sanjeev Montez DO [address] [id number] Phone: tel: fax: Trent Mattson MD [address] [address] Phone: tel: fax: Referral ID Status Reason Start Date Expiration Date V isits Requested Visits Authorized [id number] Authorized 11/12/2023 11/11/2024 12 12 Reason for Visit * Reason Onset Date Comments Referral 11/12/2023 endo Encounter Details Date Type Department Care Team (Late st Contact Info) Description 11/12/2023 Telephone [facility] Medical Group Family & Internal Medicine [facility] [address] [place] [address] Sanjeev Montez DO [address] [place] [address] Referral (endo) Social History Tobacco Use Types Packs/Day Years [...] often do you attend chur ch or mandaen services? More than 4 times per year 08/26/2022 Do you belong to any clubs o r organizations such as jainism groups, unions, fraternal or athletic groups, or [...] Recorded Patient Health Questionnaire-2 Score 1 08/06/2023 [facility] Occupat ional Health - Occupational [...] documented in this encounter Progress Notes * Gloria Patel MA - 11/12/2023 8:29 AM CDT The patient called for a referral to the following physician: Is this a new consult:No Dr's name: Dr Trent Mattson Specialty: endocrinology Reason for referral (diagnosis): E03.90 Appointment: 11/12/23 Last office visit at this office: Last visit with SANJEEV MONTEZ in FAMILY PRACTICE was on: 10/08/2023 in [facility] Future appointment scheduled: Future Appointments Date Time Provider Department Center 11/19/2023 10:40 AM Sanjeev Montez, DO [facility] 12/08/2023 1:00 PM Sanjeev Montez, DO [facility] 03/04/2024 1:00 PM Sania Gomez [facility] 04/14/2024 2:00 PM Julio Pulido MD [facility] documented in this encounter Plan of Treatment Upcoming Encounters Date Type Department Care Team (Late st Contact Info) Description 04/14/2024 2:00 PM WARP SPLITTER Office Visit [facility] Medical Group Multispecialty Care - [facility] 3 [facility], [address] [place] [address] Julio Pulido MD [address] [place] [address] Scheduled Referrals Name Type Priority Associated Diagnoses Orde r Schedule Ambulatory referral to Endocrinology (OTHER) Referral Routine Hyperthyroidism Ordered: 11/12/2023 documented as of this encounter Goals Goal Patient Goal Type Associated Problems Recent Progress Patient-Stated? Author Health - patient able to perform ADLs independently General On track(2023 9:49 AM CDT) No Dianne Johnson, RN Note: 12/17/23: Patient stated she is independent with ASL's. Establish Plan for Symptom Monitoring-CHF General On track(2023 11:36 AM WARP SPLITTER) Dianne Corona, RN Note: Patient will recognize [...] Symptom Monitoring-COPD General On track(2023 11:36 AM WARP SPLITTER) Dianne Corona RN Note: Patient will recognize [...] Symptom Monitoring-DM General On track(2023 4:33 PM WARP SPLITTER) Dianne Corona RN Note: Patient will manage [...] Symptom Monitoring-HTN General On track(2023 4:33 PM WARP SPLITTER) Dianne Corona RN Note: Patient will monitor B/P several times per week , record readings and report to physician or CC if B/P consistently >130/80 Take your medications as prescribed. Follow up with your provider as scheduled. Take your blood pressure at least several times a week if able. documented as of this encounter Visit Diagnoses Diagnosis Hyperthyroidism- Primary Thyrotoxicosis without mention of goiter or other cause, without mention of thyrotoxic crisis or storm documented in this encounter Additional Health Concerns Assessment Noted Time PHQ-9 Depression Total Score: 13 023 3:56 PM CDT documented as of this encounter Care Teams Service Center Representative Relationship Specialty Start Date End Date Sanjeev Montez DO [address] [place] [address] PCP - General FAMILY PRACTICE 09/25/20 Dianne Johnson, RN [address] [place] [address] Promotional Marketing Agent (Ambulatory) REGISTERED NURSE 08/14/20 documented as of this encounter
--- OUTSIDE RECORDS SUMMARY | 2024-03-15 00:50 | XMS_ITS | Encounter Summary ---
Author Organization [facility] Address [facility] [place] [address] [place] [address] Care Team Providers Care Hand Tennis Ball Coverer Name Role Phone Dianne Johnson RN Unavailable [phone] Sanjeev Webster DO Primary Care Provider + Encounter Details Date Type Department Care Team (Latest Contact Info) Description 11/04/2023 Scan HEALTH INFO SRVCS Scanned, Doc Med [...] Patient Health Questionnaire-2 Score 1 08/06/2023 [facility] of Occupat ional [...] st Contact Info) Description 04/14/2024 2:00 PM BUILDING SERVICES ENGINEER Office Visit [facility] Medical Group Multispecialty Care - [facility] 3 [facility], [address] [place] [address] Julio Pulido MD 3 [place] [address] documented as of this encounter Goals Goal Patient Goal Type Associated Problems Recent Progress Patient-Stated? Author Health - patient able to perform ADLs independently General On track(2023 9:49 AM CDT) Dianne Corona RN Note: 12/17/23: Patient stated she is independent with ASL's. Establish Plan for Symptom Monitoring-CHF General On track(2023 11:36 AM BUILDING SERVICES ENGINEER) Dianne Corona RN Note: Patient will [...] Symptom Monitoring-COPD General On track(2023 11:36 AM BUILDING SERVICES ENGINEER) Dianne Corona RN Note: Patient will [...] Symptom Monitoring-DM General On track(2023 4:33 PM BUILDING SERVICES ENGINEER) Dianne Corona, RN Note: Patient will [...] Symptom Monitoring-HTN General On track(2023 4:33 PM BUILDING SERVICES ENGINEER) Dianne Corona, RN Note: Patient will [...] as of this encounter Care Teams Hand Tennis Ball Coverer Relationship Specialty Start Date End Date Sanjeev Webster DO [address] [place] [address] PCP - General FAMILY PRACTICE 09/25/20 Dianne Johnson RN [address] [place] [address] Coil Winding Machines Set Up Mechanic (Ambulatory) REGISTERED NURSE 6/8/21 documented as of this encounter
--- OUTSIDE RECORDS SUMMARY | 2024-03-15 00:50 | XMS_ITS | Encounter Summary ---
Author Organization [facility] Address [facility]6 [facility] [place] [address] [place] [address] Care Team Providers Care Strategic Consultant Name Role Phone Dianne Johnson RN Unavailable [phone] Sanjeev Webster DO Primary Care Provider + Encounter Details Date Type Department Care Team (Latest Contact Info) Description 11/20/2023 Scan HEALTH INFO SRVCS Scanned, Doc Med [...] often do you attend chur ch or zoroastrian services? More than 4 times per year [...] place to sleep or slept in a care home (including now)? No 08/26/2022 Comments No [...] st Contact Info) Description 04/14/2024 2:00 PM CONSULTING SALES MANAGER Office Visit [facility] Medical Group Multispecialty Care - [facility] 3 [facility], [address] [place] [address] Julio Pulido MD 3 [place] [address] documented as of this encounter Goals Goal Patient Goal Type Associated Problems Recent Progress Patient-Stated? Author Health - patient able to perform ADLs independently General On track(2023 9:49 AM CDT) Dianne Corona RN Note: 12/17/23: Patient stated she is independent with ASL's. Establish Plan for Symptom Monitoring-CHF General On track(2023 11:36 AM CONSULTING SALES MANAGER) Dianne Corona RN Note: Patient will [...] Symptom Monitoring-COPD General On track(2023 11:36 AM CONSULTING SALES MANAGER) Dianne Corona RN Note: Patient will [...] Symptom Monitoring-DM General On track(2023 4:33 PM CONSULTING SALES MANAGER) Dianne Corona, RN Note: Patient will [...] Symptom Monitoring-HTN General On track(2023 4:33 PM CONSULTING SALES MANAGER) Dianne Corona, RN Note: Patient will [...] documented as of this encounter Care Teams Strategic Consultant Relationship Specialty Start Date End Date Sanjeev Webster DO [address] [place] [address] PCP - General FAMILY PRACTICE 09/25/20 Dianne Johnson RN [address] [place] [address] Drive In Teller (Ambulatory) REGISTERED NURSE 6/8/21 documented as of this encounter
--- OUTSIDE RECORDS SUMMARY | 2024-03-15 00:50 | XMS_ITS | Encounter Summary ---
Author Organization [facility] Address [facility]6 [facility]. [place], [place] [address] [place] [address] Care Team Providers Care Benefits Assistant Name Role Phone Dianne Johnson RN Unavailable [phone] Sanjeev Webster DO Primary Care Provider + Reason for Visit * Reason Onset Date Comments Anticoagulation 11/24/2023 Encounter Details Date Type Department Care Team (Late st Contact Info) Description 11/24/2023 Telephone [facility] Medical Group Family & Internal Medicine [id number] [place] [address] Sanjeev Webster DO [facility] [place] [address] Anticoagulation Social History Tobacco Use [...] How often do you attend chur or rastafarian services? More than 4 times per year [...] Patient Health Questionnaire-2 Score 1 08/06/2023 [facility] of Occupat ional Health - [...] Progress Notes * Yenifer Ingram MA - 11/25/2023 9:34 AM CDT Spoke with patient and scheduled next INR. The patient is requesting a phone number for a company that will pay her daughter in law for helping in her medical care. Informed patient I will check withour office nurse to find out who the patient would need to contact. LMOM for Izzy to r/c to verify she got the original message. * Diana Cantrell MA - 11/24/2023 7:16 AM CDT LMOM (Izzy's number) that pt is to continue on current dose of warfarin 7mg daily, and have INR rechecked in one week. (Verbal order given by PCP yesterday in office.) documented in this encounter Plan of Treatment Upcoming Encounters Date Type Department Care Team (Late st Contact Info) Description 04/14/2024 2:00 PM DOOR LINER Office Visit [facility] Medical Group Multispecialty Care - [facility] 3 [facility], [address] [place] [address] Julio Pulido MD 3 [place] [address] documented as of this encounter Goals Goal Patient Goal Type Associated Problems Recent Progress Patient-Stated? Author Health - patient able to perform ADLs independently General On track(2023 9:49 AM CDT) Dianne Corona RN Note: 12/17/23: Patient stated she is independent with ASL's. Establish Plan for Symptom Monitoring-CHF General On track(2023 11:36 AM DOOR LINER) Dianne Corona RN Note: Patient will recognize [...] Symptom Monitoring-COPD General On track(2023 11:36 AM DOOR LINER) Dianne Corona RN Note: Patient will recognize [...] Symptom Monitoring-DM General On track(2023 4:33 PM DOOR LINER) Dianne Corona RN Note: Patient will manage [...] Symptom Monitoring-HTN General On track(2023 4:33 PM DOOR LINER) No Dianne Johnson RN Note: Patient will [...] documented as of this encounter Care Teams Benefits Assistant Relationship Specialty Start Date End Date Sanjeev Webster DO [address] [place] [address] PCP - General FAMILY PRACTICE 09/25/20 Dianne Johnson, RN [address] [place] [address] Interior Mechanic (Ambulatory) REGISTERED NURSE 08/14/20 documented as of this encounter
--- OUTSIDE RECORDS SUMMARY | 2024-03-15 00:50 | XMS_ITS | Encounter Summary ---
Author Organization [facility] Address [facility] [place] [address] [place] [address] Care Team Providers Care Rehab Aide Name Role Phone Dianne Johnson RN Unavailable [phone] Sanjeev Webster DO Primary Care Provider + Reason for Visit * Reason Comments Bone Density Report (SCAN) Encounter Details Date Type Department Care Team (Late st Contact Info) Description 11/24/2023 Scan HEALTH INFO SRVCS Scanned, Doc Med Group Bone Density Report (SCAN) Social History Tobacco Use Types Packs/Day [...] often do you attend chur ch or mormonism services? More than 4 times per year [...] st Contact Info) Description 04/14/2024 2:00 PM MARINE WATER TENDER Office Visit [facility] Medical Group Multispecialty Care - [facility] 3 [facility], [address] [place] [address] Julio Pulido MD 3 [place] [address] documented as of this encounter Goals Goal Patient Goal Type Associated Problems Recent Progress Patient-Stated? Author Health - patient able to perform ADLs independently General On track(2023 9:49 AM CDT) Dianne Corona RN Note: 12/17/23: Patient stated she is independent with ASL's. Establish Plan for Symptom Monitoring-CHF General On track(2023 11:36 AM MARINE WATER TENDER) Dianne Corona RN Note: Patient will recognize [...] Symptom Monitoring-COPD General On track(2023 11:36 AM MARINE WATER TENDER) Dianne Corona RN Note: Patient will recognize [...] Symptom Monitoring-DM General On track(2023 4:33 PM MARINE WATER TENDER) Dianne Corona RN Note: Patient will manage [...] Symptom Monitoring-HTN General On track(2023 4:33 PM MARINE WATER TENDER) Dianne Corona, DALE Note: Patient will monitor B/P several times per week , record readings and report to physician or CC if B/P consistently >130/80 Take your medications as prescribed. Follow up with your provider as scheduled. Take your blood pressure at least several times a week if able. documented as of this encounter Procedures Procedure Name Priority Date/Time Associated Diagnosis Comments BONE DENSITY GENERIC (SCAN ORDER) 11/24/2023 documented in this encounter Results * BONE DENSITY GENERIC (SCAN ORDER) (11/24/2023) Anatomical Region Laterality Modality Other 11/24/2023 us Doc Med Group Scanned SCANNING Final Resu lt documented in this encounter Visit Diagnoses Not on filedocumented in this encounter Additional Health Concerns Assessment Noted Time PHQ-9 Depression Total Score: 13 023 3:56 PM CDT documented as of this encounter Care Teams Rehab Aide Relationship Specialty Start Date End Date Sanjeev Webster DO [address] [place] [address] PCP - General FAMILY PRACTICE 09/25/20 Dianne Johnson, RN [address] [place] [address] Source Water Protection Specialist (Ambulatory) REGISTERED NURSE 08/14/20 documented as of this encounter
--- OUTSIDE RECORDS SUMMARY | 2024-03-15 00:50 | XMS_ITS | Encounter Summary ---
Author Organization [facility] Address [facility]6 [facility] [place] [address] [place] [address] Care Team Providers Care Glass Ribbon Machine Operator Name Role Phone Dianne Johnson RN Unavailable [phone] Sanjeev Webster DO Primary Care Provider + Encounter Details Date Type Department Care Team (Latest Contact Info) Description 11/19/2023 Travel Social History Tobacco Use Types Packs/Day [...] Recorded Patient Health Questionnaire-2 Score 1 08/06/2023 [facility] of Occupat ional Health - [...] st Contact Info) Description 04/14/2024 2:00 PM CANVAS GOODS MAKER Office Visit [facility] Medical Group Multispecialty Care - [facility] 3 [facility], [address] [place] [address] uJlio Pulido MD 3 [place] [address] documented as of this encounter Goals Goal Patient Goal Type Associated Problems Recent Progress Patient-Stated? Author Health - patient able to perform ADLs independently General On track(2023 9:49 AM CDT) Dianne Corona RN Note: 12/17/23: Patient stated she is independent with ASL's. Establish Plan for Symptom Monitoring-CHF General On track(2023 11:36 AM CANVAS GOODS MAKER) Dianne Corona RN Note: Patient will [...] Symptom Monitoring-COPD General On track(2023 11:36 AM CANVAS GOODS MAKER) Dianne Corona RN Note: Patient will [...] Symptom Monitoring-DM General On track(2023 4:33 PM CANVAS GOODS MAKER) Dianne Corona RN Note: Patient will manage [...] Symptom Monitoring-HTN General On track(2023 4:33 PM CANVAS GOODS MAKER) Dianne Corona, RN Note: Patient will [...] documented as of this encounter Care Teams Glass Ribbon Machine Operator Relationship Specialty Start Date End Date Sanjeev Webster DO [address] [place] [address] PCP - General FAMILY PRACTICE 09/25/20 Dianne Johnson, RN [address] [place] [address] Master Lay Out Specialist (Ambulatory) REGISTERED NURSE 08/14/20 documented as of this encounter
--- OUTSIDE RECORDS SUMMARY | 2024-03-15 00:50 | XMS_ITS | Encounter Summary ---
Author Organization [facility] [place] Address [facility] [place] [address] [place] [address] Care Team Providers Care Psychometrician Name Role Phone Casey Johnson RN Unavailable [phone] Sanjeev Webster DO Primary Care Provider + Reason for Referral * Consultation (Routine) - Closed Specialty Diagnoses / Procedures Referred By Ian malagon Referred To Contact SIDE PANEL PADDER Diagnoses Care Management Procedures OFFICE/OUTPATIENT NEW LOW MDM 30-44 MINUTES OFFICE/OUTPT VISIT,NEW,LEVL IV OFFICE/OUTPT VISIT,NEW,LEVL V OFFICE/OUTPT VISIT,EST,LEVL III OFFICE/OUTPT VISIT,EST,LEVL IV OFFICE/OUTPT VISIT,EST,LEVL V Sanjeev Webster DO [address] [place] [address] Phone: tel: fax: Bebe Dan, JAZZ SINGER [address] [place] [address] Phone: tel: fax: Referral ID Status Reason Start Date Expiration Date V isits Requested Visits Authorized [id number] Closed Specialty Services 11/24/2023 12/23/2024 1 1 Reason for Visit * Reason Onset Date Comments Care Management 11/24/2023 Encounter Details Date Type Department Care Team (Late st Contact Info) Description 11/24/2023 Patient Outreach [facility] Medical Group Family & Internal Medicine [address] [address] Casey Johnson, RN [address] [place] [address] Care Management Social History Tobacco Use Types [...] often do you attend chur ch or religion services? More than 4 times [...] Recorded Patient Health Questionnaire-2 Score 1 08/06/2023 [facility]at ional Health [...] PM DARRYLT [place] Gunderson RN Active * Are you [...] Progress Notes * Casey Johnson RN - 11/24/2023 11:28 AM CDT Chronic Care Management: Patient concerns or urgent matters that need addressed: None identified during this phone call. Patient Status: Contacted patient today. Stated she is scheduled for a test at [facility] today for . She is unsure what he ordered. Stated she is scheduled for a Bone density test at [facility] on . She's requesting a phone number to call for her DIL to get paid for taking care of her medications and helping take care of her when she needs medication adjustments etc. Message sent to Bebe meza (SW). Patient is aware. Stated she is scheduled to be at [facility] at 12:15 PM today. Patient agreeable for CC to call her back later on today. 11/24/23: Contacted patient today. Stated [facility] [place] [facility] for heel attacher. Stated on she is getting a bone density test done at [place] [facility] for heel attacher. Instructed patient to have copy of bone density results sent to PCP. Patient verbalizes understanding. Received call from Cardiology office at [facility]. Stated she is scheduled to see on 12/16/23at 1:[address] in [place]. Stated she wrote the information down. Denies any issues with CHF or COPD exacerbation s/s at this time. Encouraged to call at the onset of any changes. Patient stated a lot of people are getting sick. Educated on the importance of good hand hygieneto help prevent any spreading of germs. Patient verbalizes understanding. Stated she thinks she received influenza vaccine at [facility] pharmacy but not for sure. CC will calland find out. If not, patient would like to get influenza vaccine on 12/08/23 when she is seen by PCP if available. 11/24/23: Contacted Isaak at [facility] pharmacy. Stated patient did not receive influenza vaccine this year at pharmacy. 11/24/23: Contacted patient regarding the above information and added influenza vaccine to upcoming appointment details per patient's request. Patient thanked CC for calling. Plan of Care: inventory control coordinator will continue to follow up by [...] without notifying provider Establish Plan for Symptom Monitoring-HTN On track Patient will monitor B/P several times per week , record readings and report to physician or CC if B/P consistently >130/80 Take your medications as prescribed. Follow up with your provider as scheduled. Take your blood pressure at least several times a week if able. Upcoming Visit Appointments: Future Appointments Date Time Provider Department Center 12/08/2023 1:00 PM [id number] 03/04/2024 1:00 PM Sania Gomez MD [facility] 04/14/2024 2:00 PM Julio Pulido MD [facility] Quality care gaps: Health Maintenance Topic Date Due Annual Medicare Wellness Visit Never done Zoster Vaccines (3 of 3) 02/17/2024 (Originally 01/06/2023) RSV Immunization or 60+ Years (1 - 1-dose 60+ series) 02/17/2024 (Originally 2004) COVID-19 Vaccine ( - 2022- season) 2112 (Originally 11/08/2023) Diabetes: Retinopathy Eye Exam 04/21/2024 Hemoglobin A1C 05/18/2024 Lipid Panel 08/13/2024 Kidney Health Evaluation 08/13/2024 DTaP, Tdap and Td Vaccines (4 - Td or Tdap) 09/05/2030 Dexa Scan (General) Completed Pneumococcal Vaccine: 65+ Years Completed Hepatitis C Completed Meningococcal Vaccine Aged Out RSV Immunizations Under 20 Months Aged Out Problem List: Patient Active Problem List Diagnosis Abnormal stress test Chronic anticoagulation Coronary artery disease involving tuolumne coronary artery of tuolumne heart without angina pectoris H/O mechanical aortic valve replacement Hypertensive heart disease with congestive heart failure ([facility]/HCC HHS/HCC) LBBB (left bundle branch block) Myopathy VAZQUEZ (obstructive sleep apnea) Paroxysmal atrial flutter (CMS/HCC HHS/HCC) Benign hypertension with CKD (chronic kidney disease) stage III ([facility]) Memory deficits Hearing deficit, bilateral History of cataract extraction, unspecified laterality Vitamin D deficiency Hypercalcemia Chronic frontal sinusitis Constipation, unspecified constipation type Chronic bilateral low back pain without sciatica Iron deficiency anemia, unspecified iron deficiency anemia type Disorder of skin of trunk Anemia Body mass index (BMI) 31.0-31.9, adult 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[facility]) Benign hypertension with stage 3b chronic kidney disease ([facility]) Cobalamin deficiency Compression fracture of thoracic vertebra ([facility]) Depression Diabetic polyneuropathy ([facility]) Disorder of rotator cuff Diverticular disease Dysphagia Elevated troponin Gastroesophageal reflux disease without esophagitis Hyperlipidemia, unspecified hyperlipidemia type Vascular dementia ([facility]) Unknown and unspecified causes of morbidity Syncope, unspecified syncope type Wrist joint pain Requires lifelong warfarin therapy Hyperparathyroidism ([facility]) Presence of prosthetic heart valve Plantar fascial fibromatosis Peripheral neuropathy Parathyroid adenoma Polymyalgia rheumatica ([facility]) Osteoporosis Numbness Muscle cramps Closed stable burst fracture of sixth thoracic vertebra, initial encounter ([facility]) Chest pain Contusion of scalp Knee pain Localized, primary osteoarthritis Osteoarthritis of knee Traumatic closed displaced fracture of distal end of radius Shoulder joint pain Hyperlipidemia associated with type 2 diabetes mellitus ([facility]) Hematoma Anxiety Diastolic heart failure ([facility]) Internal hemorrhoids Leukoencephalopathy Major depression single episode, in partial remission ([facility]) Metacarpal bone fracture Mitral valve disorder Peripheral arterial occlusive disease ([facility]) Primary osteoarthritis involving multiple joints Vision loss COPD (chronic obstructive pulmonary disease) ([facility]) Diarrhea Drug-induced constipation H/O mechanical aortic valve replacement Age-related osteoporosis with current pathological fracture Care Management Physical deconditioning Chronic heart failure with preserved ejection fraction (HFpEF) ([facility]) Paroxysmal atrial fibrillation ([facility]) Hypertension associated with type 2 diabetes mellitus ([facility]) Encounter for prophylactic measures, unspecified Graves' disease Cirrhosis of liver without ascites, unspecified hepatic cirrhosis type ([facility]) Stage 3b chronic kidney disease ([facility]) OLIVE (acute kidney injury) ([facility]) Heart failure with mildly reduced ejection fraction (HFmrEF) [facility]) Hyperthyroidism Medications: Current Outpatient Medications Medication Sig [...] Pain. Indications: Chronic Pain 60 tablet 0 iron polysaccharides (NIFEREX) 150 MG capsule Take 1 capsule (150 mg total) by mouth daily. (Patient not taking: Reported on 11/19/2023) 30 capsule 2 Lancets (ONETOUCH ULTRASOFT) lancets 1 each by [...] mcg total) by mouth daily. warfarin (COUMADIN) 2 MG tablet Take 1 tablet (2 mg total) by mouth daily. (Patient not taking: Reported on 11/12/2023) 30 tablet 1 warfarin (COUMADIN) 5 MG tablet Take 1 tablet by mouth once daily 30 tablet 1 warfarin (COUMADIN) 6 MG tablet Take 1 tablet (6 mg total) by mouth daily. (Patient not taking: Reported on 11/19/2023) 90 tablet 0 No current facility-administered medications for this visit. Chronic Care Management- Time Spent with Patient Time spent with patient (minutes): 24 (Comment: Time spent with patient and [facility] pharmacy.) Time spent performing chart review (minutes): 7 Total time (minutes): 31 CASEY JOHNSON RN I reviewed the patient's status and education provided by CASEY JOHNSON RN. I agree with the findings and recommendations made. Cosigned by Sanjeev Webster DO at 11/25/2023 11:56 AM CDT documented in this encounter Plan of Treatment Upcoming Encounters Date Type Department Care Team (Late st Contact Info) Description 04/14/2024 2:00 PM SHOE SALESPERSON Office Visit [facility] Medical Group Multispecialty Care - [facility] [address] [facility], [address] [place] [address] Julio Pulido MD [address] [place] [address] Scheduled Referrals Name Type Priority Associated Diagnoses Orde r Schedule Ambulatory referral to Social Work (Bebe Dan) Referral Routine Care Management Ordered: 11/24/2023 documented as of this encounter Goals Goal Patient Goal Type Associated Problems Recent Progress Patient-Stated? Author Health - patient able to perform ADLs independently General On track(2023 9:49 AM CDT) Casey Corona RN Note: 12/17/23: Patient stated she is independent with ASL's. Establish Plan for Symptom Monitoring-CHF General On track(2023 11:36 AM SHOE SALESPERSON) Casey Corona RN Note: Patient will recognize [...] Symptom Monitoring-COPD General On track(2023 11:36 AM SHOE SALESPERSON) Casey Corona, RN Note: Patient will recognize [...] Symptom Monitoring-DM General On track(2023 4:33 PM SHOE SALESPERSON) Casey Corona RN Note: Patient will manage [...] Symptom Monitoring-HTN General On track(2023 4:33 PM SHOE SALESPERSON) Casey Corona RN Note: Patient will monitor B/P several times per week , record readings and report to physician or CC if B/P consistently >130/80 Take your medications as prescribed. Follow up with your provider as scheduled. Take your blood pressure at least several times a week if able. documented as of this encounter Visit Diagnoses Diagnosis Care Management- Primary Chronic obstructive pulmonary disease, unspecified COPD type ([facility]) Chronic heart failure with preserved ejection fraction (HFpEF) ([facility]) documented in this encounter Additional Health Concerns Assessment Noted Time PHQ-9 Depression Total Score: 13 023 3:56 PM CDT documented as of this encounter Care Teams Psychometrician Relationship Specialty Start Date End Date Sanjeev Webster DO [address] [place] [id number] PCP - General FAMILY PRACTICE 09/25/20 Casey Johnson, RN [address] [place] [address] Electric Relay Tester (Ambulatory) REGISTERED NURSE 08/14/20 documented as of this encounter
--- OUTSIDE RECORDS SUMMARY | 2024-03-15 00:50 | XMS_ITS | Encounter Summary ---
Author Organization [place] Address [facility]. [place], [place] [address] [place] [address] Care Team Providers Care Armored Cable Machine Operator Name Role Phone Dianne Johnson RN Unavailable [phone] Sanjeev Webster DO Primary Care Provider + Reason for Visit * Reason Onset Date Comments TCM 11/10/2023 Encounter Details Date Type Department Care Team (Late st Contact Info) Description 11/10/2023 Telephone [facility] Medical Group Family & Internal Medicine [id number] [place] [address] Sanjeev Webster DO [address] [place] [address] [facility] Social History Tobacco Use Types Packs/Day Years [...] How often do you attend chur or latter-day services? More than 4 times per year [...] Recorded Patient Health Questionnaire-2 Score 1 08/06/2023 [facility] Occupat ional Health [...] Progress Notes * Natalee Brown RN - 11/10/2023 9:23 AM CDT Patient called in to schedule hospital follow up appointment. Patient was DC on 11/03/23 from [place]. TCM call was missed. Will request records. Patient has an appointmet on 11/19/23. Opportunity given for all questions to be answered, no further needs voiced at this time. LL-11/10/23 documented in this encounter Plan of Treatment Upcoming Encounters Date Type Department Care Team (Late st Contact Info) Description 04/14/2024 2:00 PM GUIDE PLANT Office Visit [facility] Medical Group Multispecialty Care - [facility] [address] [facility], [address] [place] [phone] Julio Pulido MD [address] [place] [address] documented as of this encounter Goals Goal Patient Goal Type Associated Problems Recent Progress Patient-Stated? Author Health - patient able to perform ADLs independently General On track(2023 9:49 AM CDT) No Dianne Johnson RN Note: 12/17/23: Patient stated she is independent with ASL's. Establish Plan for Symptom Monitoring-CHF General On track(2023 11:36 AM GUIDE PLANT) Dianne Corona RN Note: Patient will recognize [...] Symptom Monitoring-COPD General On track(2023 11:36 AM GUIDE PLANT) Dianne Corona RN Note: Patient will recognize [...] Symptom Monitoring-DM General On track(2023 4:33 PM GUIDE PLANT) Dianne Corona RN Note: Patient will manage [...] Symptom Monitoring-HTN General On track(2023 4:33 PM GUIDE PLANT) Dianne Corona RN Note: Patient will monitor [...] documented as of this encounter Care Teams Armored Cable Machine Operator Relationship Specialty Start Date End Date Sanjeev Webster DO [address] [place] [address] PCP - General FAMILY PRACTICE 09/25/20 Dianne Johnson, RN [address] [place] [address] Scientific Linguist (Ambulatory) REGISTERED NURSE 08/14/20 documented as of this encounter
--- OUTSIDE RECORDS SUMMARY | 2024-03-15 00:50 | XMS_ITS | Encounter Summary ---
Author Organization [facility] Address [facility]6 [place] [address] [place] [address] Care Team Providers Care Assistant Golf Course Superintendent Name Role Phone Dianne Johnson RN Unavailable [phone] Sanjeev Webster DO Primary Care Provider + Encounter Details Date Type Department Care Team (Latest Contact Info) Description 11/13/2023 Scan HEALTH INFO SRVCS Scanned, Doc Med [...] often do you attend chur ch or muslim services? More than 4 times [...] Recorded Patient Health Questionnaire-2 Score 1 08/06/2023 [facility] of Occupat ional [...] st Contact Info) Description 04/14/2024 2:00 PM OR MANAGER Office Visit [facility] Medical Group Multispecialty Care - [facility] [address] [facility], [address] [place] [address] Julio Pulido MD [address] [place] [address] documented as of this encounter Goals Goal Patient Goal Type Associated Problems Recent Progress Patient-Stated? Author Health - patient able to perform ADLs independently General On track(2023 9:49 AM CDT) Dianne Corona RN Note: 12/17/23: Patient stated she is independent with ASL's. Establish Plan for Symptom Monitoring-CHF General On track(2023 11:36 AM OR MANAGER) Dianne Corona RN Note: Patient will [...] Symptom Monitoring-COPD General On track(2023 11:36 AM OR MANAGER) Dianne Corona RN Note: Patient will [...] Symptom Monitoring-DM General On track(2023 4:33 PM OR MANAGER) Dianne Corona, RN Note: Patient will [...] Symptom Monitoring-HTN General On track(2023 4:33 PM OR MANAGER) Dianne Corona, RN Note: Patient will [...] documented as of this encounter Care Teams Assistant Golf Course Superintendent Relationship Specialty Start Date End Date Sanjeev Webster DO [address] [place] [address] PCP - General FAMILY PRACTICE 09/25/20 Dianne Johnson RN [address] [place] [address] Commissary Superintendent (Ambulatory) REGISTERED NURSE 6/8/21 documented as of this encounter
--- OUTSIDE RECORDS SUMMARY | 2024-03-15 00:50 | XMS_ITS | Encounter Summary ---
Author Organization [facility] Address [facility]6 [facility] [place] [address] [place] [address] Care Team Providers Care Spray Cementer Name Role Phone Dianne Johnson RN Unavailable [phone] Sanjeev Webster DO Primary Care Provider + Reason for Visit * Reason Onset Date Comments Lab Results 10/20/2023 Encounter Details Date Type Department Care Team (Late st Contact Info) Description 10/20/2023 Telephone [facility] Medical Group Family & Internal Medicine [address] [place] [address] Sanjeev Webster DO [address] [place] [address] Lab Results Social History Tobacco [...] often do you attend chur ch or uatsdin services? More than 4 times per year 08/26/2022 Do you belong to any clubs o r organizations such as confucianist groups, unions, fraternal or athletic groups, or [...] Score 1 08/06/2023 [facility] Occupat ional Health - [...] documented in this encounter Progress Notes * Trixie Jose MA - 10/20/2023 11:49 AM CDT Patient informed and appt made. tn * Trixie Jose MA - 10/20/2023 11:47 AM CDT ----- Message from Dr. Sanjeev Webster sent at 10/19/2023 10:14 PM CDT ----- Labs are still pending full results. PT/INR is again mildly decreased. Recommend continue at same dose and recheck in 1 week; if goes low again, we will need to increase a small amount. documented in this encounter Plan of Treatment Upcoming Encounters Date Type Department Care Team (Late st Contact Info) Description 04/14/2024 2:00 PM INSTRUCTOR PROGRAMMABLE CONTROLLERS Office Visit [facility] Medical Group Multispecialty Care - [address], [address] [place] [phone] Julio Pulido MD [address] [place] [address] documented as of this encounter Goals Goal Patient Goal Type Associated Problems Recent Progress Patient-Stated? Author Health - patient able to perform ADLs independently General On track(2023 9:49 AM CDT) No Dianne Johnson, RN Note: 12/17/23: Patient stated she is independent with ASL's. Establish Plan for Symptom Monitoring-CHF General On track(2023 11:36 AM INSTRUCTOR PROGRAMMABLE CONTROLLERS) Dianne Corona RN Note: Patient will recognize [...] Symptom Monitoring-COPD General On track(2023 11:36 AM INSTRUCTOR PROGRAMMABLE CONTROLLERS) Dianne Corona RN Note: Patient will recognize [...] Symptom Monitoring-DM General On track(2023 4:33 PM INSTRUCTOR PROGRAMMABLE CONTROLLERS) Dianne Corona RN Note: Patient will manage [...] Symptom Monitoring-HTN General On track(2023 4:33 PM INSTRUCTOR PROGRAMMABLE CONTROLLERS) Dianne Corona, RN Note: Patient will monitor [...] documented as of this encounter Care Teams Spray Cementer Relationship Specialty Start Date End Date Sanjeev Webster DO [address] [place] [address] PCP - General FAMILY PRACTICE 09/25/20 Dianne Johnson, RN [address] [place] [address] Demand Planning Manager (Ambulatory) REGISTERED NURSE 08/14/20 documented as of this encounter
--- OUTSIDE RECORDS SUMMARY | 2024-03-15 00:50 | XMS_ITS | Encounter Summary ---
Author Organization [facility] Address [facility] [place] [address] [place] [address] Care Team Providers Care Welcome Hostess Name Role Phone Dianne Johnson RN Unavailable [phone] Sanjeev Webster DO Primary Care Provider + Reason for Visit * Reason Onset Date Comments Follow Up Call 11/12/2023 Encounter Details Date Type Department Care Team (Late st Contact Info) Description 11/12/2023 Telephone [facility] Family & Internal Medicine [address] [id number] [place] [address] Sanjeev Webster DO [address] [place] [address] Follow Up Call Social History [...] How often do you attend chur or gnosticist services? More than 4 times per year 08/26/2022 Do you belong to any clubs o r organizations such as sabianist groups, unions, fraternal or athletic groups, or [...] Health Questionnaire-2 Score 1 08/06/2023 [facility] of Occupat ional Health - [...] Progress Notes * Yenifer Ingram MA - 11/13/2023 2:38 PM CDT Called and spoke with patient. She is scheduled for INR on Thursday11/16/2023. The patient reports having a h/a and vomitingx2. The patient states she has held down soup. Patient denies any other sx at this time. She is going to monitor and if she worsens or new sx develop she needs to be seen elsewhere. * Sanjeev Webster DO - 11/13/2023 11:32 AM CDT I'd like to obtain a PT/INR sooner than appointment if able. Can discuss other issues at next OV. * Dianne Johnson RN - 11/12/2023 12:08 PM CDT Images from the original note were not included. D/C from [facility] on 11/03/23. PCP office or CC not notified of admission and TCM call was not completed. Scheduled for hospital f/u with PCP on 11/19/23. Please address the following: Last PT/INR done on 11/03/23. When should patient repeat lab work. See results below for details. She is currently taking Warfarin 6 mg daily per patient and DIL. 2. DIL currently at work and CC unable to reconcile medication list. Requested Izzy give patient copy of updated medication list to bring to upcoming appointment on 11/19/23. 3. FYI: Patient wants to switch [employer] Work[employer] from to [employer] Worker at [place]. She will further discuss at upcoming appointment. 4. Received D/C summary and D/C medication list from [facility] medical records. Faxed copy of 42 pages to PCP today. H & P has already been scanned into patient's chart. Thank you. documented in this encounter Plan of Treatment Upcoming Encounters Date Type Department Care Team (Late st Contact Info) Description 04/14/2024 2:00 PM DISTANCE EDUCATION COORDINATOR Office Visit [facility] Medical Group Multispecialty Care - [facility] 3 [facility], [address] [place] [address] Julio Pulido MD 3 [place] [address] documented as of this encounter Goals Goal Patient Goal Type Associated Problems Recent Progress Patient-Stated? Author Health - patient able to perform ADLs independently General On track(2023 9:49 AM CDT) Dianne Corona, DALE Note: 12/17/23: Patient stated she is independent with ASL's. Establish Plan for Symptom Monitoring-CHF General On track(2023 11:36 AM DISTANCE EDUCATION COORDINATOR) Dianne Corona RN Note: Patient will recognize [...] Symptom Monitoring-COPD General On track(2023 11:36 AM DISTANCE EDUCATION COORDINATOR) No Johnson, Dianne R, RN Note: Patient will recognize symptoms of [...] Symptom Monitoring-DM General On track(2023 4:33 PM DISTANCE EDUCATION COORDINATOR) Dianne Corona RN Note: Patient will manage [...] Symptom Monitoring-HTN General On track(2023 4:33 PM DISTANCE EDUCATION COORDINATOR) Dianne Corona RN Note: Patient will monitor [...] documented as of this encounter Care Teams Welcome Hostess Relationship Specialty Start Date End Date Sanjeev Webster DO [address] [place] [address] PCP - General FAMILY PRACTICE 09/25/20 Dianne Johnson, RN [address] [place] [address] Mass Spectroscopist (Ambulatory) REGISTERED NURSE 08/14/20 documented as of this encounter
--- OUTSIDE RECORDS SUMMARY | 2024-03-15 00:50 | XMS_ITS | Encounter Summary ---
Author Organization [facility] Address [facility]6 [facility] [place] [address] [place] [address] Care Team Providers Care Chief Procurement Officer Name Role Phone Dianne Johnson RN Unavailable [phone] Sanjeev Webster DO Primary Care Provider + Encounter Details Date Type Department Care Team (Latest Contact Info) Description 11/12/2023 Scan HEALTH INFO SRVCS Scanned, Doc Med [...] often do you attend chur ch or quaker services? More than 4 times per year 08/26/2022 Do you belong to any clubs o r organizations such as orthodox groups, unions, fraternal or athletic groups, [...] Recorded Patient Health Questionnaire-2 Score 1 08/06/2023 [facility] of Occupat ional Health - Occupational [...] place to sleep or slept in a longterm (including now)? No 08/26/2022 Comments No Sex [...] st Contact Info) Description 04/14/2024 2:00 PM HAT PARTS CUTTER MACHINE Office Visit [facility] Medical Group Multispecialty Care - [facility] 3 [facility], [address] [place] [address] Julio Pulido MD 3 [place] [address] documented as of this encounter Goals Goal Patient Goal Type Associated Problems Recent Progress Patient-Stated? Author Health - patient able to perform ADLs independently General On track(2023 9:49 AM CDT) Dianne Corona RN Note: 12/17/23: Patient stated she is independent with ASL's. Establish Plan for Symptom Monitoring-CHF General On track(2023 11:36 AM HAT PARTS CUTTER MACHINE) Dianne Corona RN Note: Patient will recognize [...] Symptom Monitoring-COPD General On track(2023 11:36 AM HAT PARTS CUTTER MACHINE) Dianne Corona RN Note: Patient will recognize [...] Symptom Monitoring-DM General On track(2023 4:33 PM HAT PARTS CUTTER MACHINE) Dianne Corona, RN Note: Patient will manage [...] Symptom Monitoring-HTN General On track(2023 4:33 PM HAT PARTS CUTTER MACHINE) Dianne Corona, RN Note: Patient will monitor [...] as of this encounter Care Teams Chief Procurement Officer Relationship Specialty Start Date End Date Sanjeev Webster DO [address] [place] [id number] PCP - General FAMILY PRACTICE 09/25/20 Dianne Johnson RN [address] [place] [address] Chief Credit Officer (Ambulatory) REGISTERED NURSE 6/8/21 documented as of this encounter
--- OUTSIDE RECORDS SUMMARY | 2024-03-15 00:50 | XMS_ITS | Encounter Summary ---
Author Organization [facility] Address [facility]6 [facility] [address] [place] [address] Care Team Providers Care Hand Meat Salter Name Role Phone Dianne Johnson RN Unavailable [phone] Sanjeev Webster DO Primary Care Provider + Reason for Visit * Reason Comments Image (SCAN) Encounter Details Date Type Department Care Team (Latest Contact Info) Description 10/31/2023 Scan HEALTH INFO SRVCS Scanned, Doc Med [...] any clubs o r organizations such as gnosticist groups, unions, fraternal or athletic groups, or [...] Recorded Patient Health Questionnaire-2 Score 1 08/06/2023 [facility] Stress Questionnaire Answer Date [...] st Contact Info) Description 04/14/2024 2:00 PM CINEMA OR THEATRE MANAGER Office Visit [facility] Medical Group Multispecialty Care - [facility] 3 [facility], [address] [place] [address] Julio Pulido MD 3 [place] [address] documented as of this encounter Goals Goal Patient Goal Type Associated Problems Recent Progress Patient-Stated? Author Health - patient able to perform ADLs independently General On track(2023 9:49 AM CDT) Dianne Corona RN Note: 12/17/23: Patient stated she is independent with ASL's. Establish Plan for Symptom Monitoring-CHF General On track(2023 11:36 AM CINEMA OR THEATRE MANAGER) Dianne Corona RN Note: Patient will [...] Symptom Monitoring-COPD General On track(2023 11:36 AM CINEMA OR THEATRE MANAGER) Dianne Corona RN Note: Patient will [...] Symptom Monitoring-DM General On track(2023 4:33 PM CINEMA OR THEATRE MANAGER) Dianne Corona, RN Note: Patient will [...] Symptom Monitoring-HTN General On track(2023 4:33 PM CINEMA OR THEATRE MANAGER) Dianne Corona, RN Note: Patient will [...] Priority Date/Time Associated Diagnosis Comments IMAGE GENERIC 10/31/2023 documented in this encounter Results * IMAGE GENERIC (10/31/2023) Anatomical Region Laterality Modality Other 10/31/2023 us Doc Med Group Scanned SCANNING Final Resu lt documented in this encounter Visit Diagnoses Not on filedocumented in this encounter Additional Health Concerns Assessment Noted Time PHQ-9 Depression Total Score: 13 023 3:56 PM CDT documented as of this encounter Care Teams Hand Meat Salter Relationship Specialty Start Date End Date Sanjeev Webster DO [address] [place] [address] PCP - General FAMILY PRACTICE 09/25/20 Dianne Johnson, RN [address] [place] [address] Oracle R12 Developer (Ambulatory) REGISTERED NURSE 08/14/20 documented as of this encounter
--- OUTSIDE RECORDS SUMMARY | 2024-03-15 00:50 | XMS_ITS | Encounter Summary ---
Author Organization [facility] Address [facility]6 [facility] [place] [address] [place] [address] Care Team Providers Care Hand Folder Name Role Phone Dianne Johnson RN Unavailable [phone] Sanjeev Webster DO Primary Care Provider + Encounter Details Date Type Department Care Team (Latest Contact Info) Description 10/19/2023 - 10/19/2023 11:59 PM CDT Hospital Encounter [facility] [address] [place] [address] Sanjeev Webster DO [address] [place] [address] Discharge Disposition: Home or Self [...] How often do you attend chur or evangelical services? More than 4 times per year 08/26/2022 Do you belong to any clubs o r organizations such as bahai groups, unions, fraternal or athletic groups, or [...] Recorded Patient Health Questionnaire-2 Score 1 08/06/2023 [facility] of Occupat ional Health - [...] hronic obstructive pulmonary disease, unspecified COPD type ([facility]) INHALE 2 PUFFS BY MOUTH EVERY 6 HOURS NEEDED FOR WHEEZING 18 g 5 11/19/2022 B Complex Cap capsule Take 1 capsule by mouth daily. Blood Glucose Monitoring Suppl (ONE TOUCH ULTRA 2) w/Device KitIndications:Type 2 diabetes mellitus with stage 3b chronic kidney disease, without long-term current use of insulin ([facility]) 1 Device by Does not apply [...] of insulin ([facility]) 1 Device by Does not apply route daily. 100 strip 3 12/26/2022 Lancets (SayTaxi AustraliaTOUCH ULTRASOFT) lancetsIndications:T ype 2 diabetes mellitus with stage 3b chronic kidney disease, without long-term current use of insulin ([facility]) 1 each by Other route as needed. Use as instructed 100 each 3 12/26/2022 methIMAzole (TAPAZOLE) 5 MG tablet Take 1 tablet (5 mg total) by mouth daily. 05/04/2023 Semaglutide (OZEMPIC, 0.25 OR 0.5 MG/DOSE, SC) Inject 0.5 mg into the skin once a week. simvastatin (ZOCOR) 10 MG tabletIndications:Hy perlipidemia associated with type 2 diabetes mellitus ([facility] HHS/HCC) Take 1 tablet (10 mg total) by mouth nightly at bedtime. 90 tablet 3 02/16/2023 vitamin B-12 (CYANOCOBALAMIN) (CYANOCOBALAMIN) 1000 mcg tablet Take 1 tablet (1,000 mcg total) by mouth daily. 08/26/2023 warfarin (COUMADIN) 2 MG tabletIndications:Ch ronic anticoagulation Take 1 tablet (2 mg total) by mouth daily. 30 tablet 1 07/08/2023 warfarin (COUMADIN) 6 MG tabletIndications:Ch ronic anticoagulation Take 1 tablet (6 mg total) by mouth daily. 90 tablet 10/01/2023 ALPRAZolam (XANAX) 0.5 MG tabletIndications:An xiety TAKE 1/2 (ONE-HALF) TABLET BY MOUTH NIGHTLY NEEDED FOR SLEEP 15 tablet 10/16/2023 11/24/19 24 docusate sodium (COLACE) 100 MG capsuleIndications:C onstipation Take one by mouth twice daily or as needed for constipation. 30 capsule 03/25/2023 11/19/19 24 furosemide (LASIX) 20 MG tabletIndications:Hy pertensive heart disease with congestive heart failure ([facility] HHS/HCC) Take 1 tablet (20 mg total) by mouth daily. 30 tablet 10/01/2023 11/24/19 24 gabapentin (NEURONTIN) 300 MG capsuleIndications:C hronic low back pain, unspecified back pain laterality, unspecified whether sciatica present take 1 capsule by mouth three times daily 270 capsule 08/27/2023 01/19/20 24 HYDROcodone-acetamin ophen (NORCO) 5-325 MG tabletIndications:Ch ronic Pain Take 1-2 tablets by mouth every 6 (six) hours as needed for Pain. Indications: Chronic Pain 60 tablet 10/08/2023 11/19/19 24 iron polysaccharides (NIFEREX) 150 MG capsuleIndications:I eldia deficiency anemia, unspecified iron deficiency anemia type Take 1 capsule (150 mg total) by mouth daily. 30 capsule 2 06/03/2022 12/08/19 24 metoprolol succinate ER (TOPROL-XL) 25 MG 24 hr tablet Take 0.5 tablets (12.5 mg total) by mouth daily. 08/26/2023 10/20/19 24 omeprazole (PRILOSEC) 40 MG capsuleIndications:G ERD (gastroesophageal reflux disease) Take 1 capsule (40 mg total) by mouth daily. 90 capsule 1 05/14/2023 11/24/19 24 potassium chloride CR (K-TAB) 10 MEQ Tab CR tabletIndications:Hy pokalemia Take 1 tablet by mouth once daily 90 tablet 08/27/2023 11/24/19 24 venlafaxine XR (EFFEXOR-XR) 150 MG 24 hr capsuleIndications:C urrent mild episode of major depressive disorder without prior episode (CMS/HCC) Take 1 capsule by mouth once daily 90 capsule 08/27/2023 12/28/19 24 warfarin (COUMADIN) 5 MG tabletIndications:Lo ng term (current) use of anticoagulants,H/O mechanical aortic valve replacement Take 1 tablet (5 mg total) by mouth daily. 30 tablet 1 06/11/2023 11/24/19 24 documented as of this encounter Plan of Treatment Upcoming Encounters Date Type Department Care Team (Late st Contact Info) Description 04/14/2024 2:00 PM HAND SHOES SEWER Office Visit [facility] Mult[facility]pecialty Care - [facility] 3 [facility], [address] [place] [phone] Julio Pulido MD [address] [place] [address] documented as of this encounter Goals Goal Patient Goal Type Associated Problems Recent Progress Patient-Stated? Author Health - patient able to perform ADLs independently General On track(2023 9:49 AM CDT) Dianne Corona RN Note: 12/17/23: Patient stated she is independent with ASL's. Establish Plan for Symptom Monitoring-CHF General On track(2023 11:36 AM HAND SHOES SEWER) Dianne Corona RN Note: Patient will recognize [...] Symptom Monitoring-COPD General On track(2023 11:36 AM HAND SHOES SEWER) Dianne Corona RN Note: Patient will recognize [...] Symptom Monitoring-DM General On track(2023 4:33 PM HAND SHOES SEWER) Dianne Corona RN Note: Patient will manage [...] Symptom Monitoring-HTN General On track(2023 4:33 PM HAND SHOES SEWER) No Dianne Johnson, RN Note: Patient will [...] as of this encounter Care Teams Hand Folder Relationship Specialty Start Date End Date Sanjeev Webster DO [address] [place] [address] PCP - General FAMILY PRACTICE 09/25/20 Dianne Johnson, RN [facility] [place] [address] Fur Glazer (Ambulatory) REGISTERED NURSE 08/14/20 documented as of this encounter
--- OUTSIDE RECORDS SUMMARY | 2024-03-15 00:50 | XMS_ITS | Encounter Summary ---
Author Organization [facility] Address [facility] [place] [address] [place] [address] Care Team Providers Care Supervisor Mattress And Boxsprings Name Role Phone Dianne Johnson RN Unavailable [phone] Sanjeev Webster DO Primary Care Provider + Reason for Visit * Reason Onset Date Comments Results 10/22/2023 Encounter Details Date Type Department Care Team (Late st Contact Info) Description 10/22/[address] [address] Ely Duran, RN Results Social History Tobacco Use Types Packs/Day [...] How often do you attend chur or congregation services? More than 4 times per year 08/26/2022 Do you belong to any clubs o r organizations such as denominational groups, unions, fraternal or athletic groups, or [...] Recorded Patient Health Questionnaire-2 Score 1 08/06/2023 [facility] of Occupat ional [facility] - Occupational Stress Questionnaire Answer Date Recorded [...] documented in this encounter Progress Notes * Ely Duran RN - 10/22/2023 2:33 PM CDT No significant bradycardia on conveyor monitor. Average HR [address] bpm. Above message from Dr. Gomez. I informed the patient of the above information. The patient verbalized understanding and had no further questions. documented in this encounter Plan of Treatment Upcoming Encounters Date Type Department Care Team (Late st Contact Info) Description 04/14/2024 2:00 PM RESIDENT CARE AID Office Visit [facility] Medical [facility] Multispecialty Care - [facility] 3 [facility], [address] [place] [address] Julio Pulido MD 3 [place] [address] documented as of this encounter Goals Goal Patient Goal Type Associated Problems Recent Progress Patient-Stated? Author Health - patient able to perform ADLs independently General On track(2023 9:49 AM CDT) Dianne Corona RN Note: 12/17/23: Patient stated she is independent with ASL's. Establish Plan for Symptom Monitoring-CHF General On track(2023 11:36 AM RESIDENT CARE AID) Dianne Corona RN Note: Patient will recognize [...] Symptom Monitoring-COPD General On track(2023 11:36 AM RESIDENT CARE AID) Dianne Corona RN Note: Patient will recognize [...] Symptom Monitoring-DM General On track(2023 4:33 PM RESIDENT CARE AID) Dianne Corona RN Note: Patient will manage [...] Symptom Monitoring-HTN General On track(2023 4:33 PM RESIDENT CARE AID) Dianne Corona RN Note: Patient will monitor [...] as of this encounter Care Teams Supervisor Mattress And Boxsprings Relationship Specialty Start Date End Date Sanjeev Webster DO [address] [place] [address] PCP - General FAMILY PRACTICE 09/25/20 [place] [address] [place] [address] Chemist Steroids (Ambulatory) REGISTERED NURSE 08/14/20 documented as of this encounter
--- OUTSIDE RECORDS SUMMARY | 2024-03-15 00:50 | XMS_ITS | Encounter Summary ---
Author Organization [facility] Address [facility] hospital6 [facility]. [place], [place] [address] [place] [address] Care Team Providers Care Baccarat Manager Name Role Phone Dianne Johnson RN Unavailable [phone] Sanjeev Webster DO Primary Care Provider + Reason for Visit * Reason Comments Allied Health Visit Encounter Details Date Type Department Care Team (Latest Contact Info) Description 11/23/2023 11:00 AM CDT Allied Health/Nurse Visit [facility] Medical Group Family & Internal Medicine [facility] [address] [place] [address] Sanjeev Webster DO [address] [place] [address] Allied Health Visit Social History [...] often do you attend chur ch or shinto services? More than 4 times [...] Recorded Patient Health Questionnaire-2 Score 1 08/06/2023 [facility] of Occupat ional Health - Occupational [...] Progress Notes * Diana Cantrell MA - 11/23/2023 11:00 AM CDT Pt in office today to have INR checked. Current warfarin dose 7 mg daily. documented in this encounter Plan of Treatment Upcoming Encounters Date Type Department Care Team (Late st Contact Info) Description 04/14/2024 2:00 PM SCHOOL SUPERINTENDENT Office Visit [facility] Medical Group Multispecialty Care - [facility] 3 [facility], [address] [place] [address] Julio Pulido MD 3 [place] [address] documented as of this encounter Goals Goal Patient Goal Type Associated Problems Recent Progress Patient-Stated? Author Health - patient able to perform ADLs independently General On track(2023 9:49 AM CDT) Dianne Corona RN Note: 12/17/23: Patient stated she is independent with ASL's. Establish Plan for Symptom Monitoring-CHF General On track(2023 11:36 AM SCHOOL SUPERINTENDENT) Dianne Corona RN Note: Patient will recognize [...] Symptom Monitoring-COPD General On track(2023 11:36 AM SCHOOL SUPERINTENDENT) Dianne Corona RN Note: Patient will recognize [...] Symptom Monitoring-DM General On track(2023 4:33 PM SCHOOL SUPERINTENDENT) Dianne Corona RN Note: Patient will manage [...] Symptom Monitoring-HTN General On track(2023 4:33 PM SCHOOL SUPERINTENDENT) Dianne Corona RN Note: Patient will monitor [...] Date/Time Associated Diagnosis Comments COLLECT.CAPILLARY (FNGR,HEEL,EAR) Routine 11/23/2023 11:02 AM CDT Chronic anticoagulation PROTHROMBIN TIME, FINGERSTICK Routine 11/23/2023 Chronic anticoagulation documented in this encounter Results * PROTIME/INR, FINGERSTICK (11/23/2023) INR WHOLE BLOOD 1.70 MG-S [facility] 11/23/2023 us Sanjeev Webster DO LABORATORY Final Re sult [facility] [address] [place] [address], documented in this encounter Visit Diagnoses Diagnosis Chronic anticoagulation- Primary Encounter for long-term (current) use of anticoagulants documented in this encounter Additional Health Concerns Assessment Noted Time PHQ-9 Depression Total Score: 13 023 3:56 PM CDT documented as of this encounter Care Teams Baccarat Manager Relationship Specialty Start Date End Date Sanjeev Webster DO [address] [place] [id number] PCP - General FAMILY PRACTICE 09/25/20 Dianne Johnson RN [address] [place] [address] Vaccine Specialist (Ambulatory) REGISTERED NURSE 08/14/20 documented as of this encounter
--- OUTSIDE RECORDS SUMMARY | 2024-03-15 00:50 | XMS_ITS | Encounter Summary ---
Author Organization [facility] Address Critical access hospital6 [place] [address] [place] [address] Care Team Providers Care Licensed Architect Name Role Phone Dianne Johnson RN Unavailable [phone] Sanjeev Webster DO Primary Care Provider + Encounter Details Date Type Department Care Team (Late st Contact Info) Description 10/19/2023 1:00 PM CDT Laboratory Only [facility] Medical Group Family & Internal Medicine [address] [place] [address] Sanjeev Webster DO [address] [place] [address] Social History Tobacco Use Types Packs/Day Years [...] Recorded Patient Health Questionnaire-2 Score 1 08/06/2023 [facility] [...] documented in this encounter Progress Notes * Neema Gurrola - 10/19/2023 1:00 PM CDTAddended by: NEEMA GURROLA on: 10/19/2023 07:30 PM Modules accepted: Orders documented in this encounter Plan of Treatment Upcoming Encounters Date Type Department Care Team (Late st Contact Info) Description 04/14/2024 2:00 PM PLANING MACHINE OPERATOR Office Visit [facility] Medical [facility] Multispecialty Care - [facility] [address] [facility], [address] [place] [address] Julio Pulido MD 3 [place] [address] documented as of this encounter Goals Goal Patient Goal Type Associated Problems Recent Progress Patient-Stated? Author Health - patient able to perform ADLs independently General On track(2023 9:49 AM CDT) Dianne Corona RN Note: 12/17/23: Patient stated she is independent with ASL's. Establish Plan for Symptom Monitoring-CHF General On track(2023 11:36 AM PLANING MACHINE OPERATOR) Dianne Corona RN Note: Patient [...] Symptom Monitoring-COPD General On track(2023 11:36 AM PLANING MACHINE OPERATOR) Dianne Corona RN Note: Patient [...] Symptom Monitoring-DM General On track(2023 4:33 PM PLANING MACHINE OPERATOR) Dianne Corona RN Note: Patient [...] Symptom Monitoring-HTN General On track(2023 4:33 PM PLANING MACHINE OPERATOR) Dianne Corona RN Note: Patient [...] Procedure Name Priority Date/Time Associated Diagnosis Comments COLLECTION VENOUS BLOOD VENIPUNCTURE Routine 10/19/2023 1:30 PM CDT Anemia, unspecified type tank terminal gauger (current) use of anticoagulants SOLUBLE TRANSFERRIN RECEPTOR Routine 10/19/2023 12:57 PM CDT Anemia, unspecified type IRON SAT PANEL (IRON,IBC,%SAT) Routine 10/19/2023 12:57 PM CDT Anemia, unspecified type VITAMIN B-12 Routine 10/19/2023 12:57 PM CDT Anemia, unspecified type RETICULOCYTE CT, AUTO Routine 10/19/2023 12:57 PM CDT Anemia, unspecified type HAPTOGLOBIN, QUANT Routine 10/19/2023 12 :57 PM CDT Anemia, unspecified type PROTHROMBIN TIME, VENOUS Routine 10/19/2023 12:57 PM CDT tank terminal gauger (current) use of anticoagulants LDH, LACTATE DEHYDROGENASE Routine 10/19/2023 12:57 PM CDT Anemia, unspecified type FOLIC ACID SERUM Routine 10/19/2023 12:5 7 PM CDT Anemia, unspecified type CBC W/DIFF AUTOMATED Routine 10/19/2023 12:57 PM CDT Anemia, unspecified type FERRITIN Routine 10/19/2023 12:57 PM CDT Anemia, unspecified type documented in this encounter Results * (ABNORMAL) SOLUBLE TRANSFERRIN RECEPTOR (10/19/2023 12:57 PM CDT) SOLUBLE TRANSFERRIN RECEPTOR 2.02(H) 0.76 - 1.76 mg/L [employer] [facility] 10/19/2023 12:5 7 PM CDT 10/21/2023 4:38 AM CDT Narrative Resulting Agency Comment Performing Organization Information: ?Site ID: [id number] ?Name: [facility], ?Address: [address] [place] [address] ?Director: Brie Ellis MD,PhD,EDNA Sanjeev Webster DO LABORATORY Final Re sult Performing Organization Address [facility] Co de Phone Number [facility] [id number] [place] [phone], * (ABNORMAL) PROTIME/INR, VENOUS (10/19/2023 12:57 PM CDT) [facility] PROTIME 19.4(H) 9.3 - 11.6 SEC 10/19/2023 7:[address] [facility] INR 1.9(H) 0.9 - 1.1 10/19/2023 7:[address] [facility] Comment: TREATMENT OR PROPHYLAXIS AGAINST: ?? THERAPEUTIC RANGE (INR): ?VENOUS THROMBOSIS ? 2.0-3.0 ?PULMONARY EMBOLUS ? 2.0-3.0 ?? MECHANICAL PROSTHETIC VALVES ? 2.5-3.5 10/19/2023 12:5 7 PM CDT Sanjeev Webster DO LABORATORY Final Re sult Performing Organization Address [facility] de Phone Number [facility] [address] [place] [address], [place] [phone] * (ABNORMAL) CBC W/DIFF AUTOMATED (10/19/2023 12:57 PM CDT) [facility] WBC 5.17 4.00 - 10.80 x10'3/uL 10/19/2023 8:[address] [facility] RBC 3.28(L) 4.10 - 5.40 x10'6/uL 10/19/2023 8:20 PM CDT [facility] HGB 10.1(L) 12.0 - 16.0 G/DL 10/19/2023 8:20 PM CDT [facility] HCT 33.9(L) 36.0 - 47.0 % 10/19/2023 8:20 PM CDT [facility] MCV 103.4(H) 78.0 - 100.0 FL 10/19/2023 8:[address] [facility] MCH 30.8 27.0 - 31.0 PG 10/19/2023 8:20 PM CDT [facility] MCHC 29.8(L) 33.0 - 36.0 G/DL 10/19/2023 8:20 PM CDT [facility] RDW 18.4(H) 11.5 - 14.5 % 10/19/2023 8:[address] [facility] PLT 255 150 - 350 x10'3/uL 10/19/2023 8:[address] [facility] MPV 13.1(H) 7.4 - 10.4 FL 10/19/2023 8:[address] [facility] DIFFERENTIAL TYPE AUTOMATED DIFFERENTIAL 10/19/2023 8:[address] [facility] NEUTROPHILS % 64.2 % 10/19/2023 8:[address] [facility] LYMPHOCYTES % 16.8 % 10/19/2023 8:21 PM CDT [facility] MONOCYTES % 11.6 % 10/19/2023 8:21 PM CDT [facility] EOSINOPHILS % 6.4 % 10/19/2023 8:[address] [facility] BASOPHILS % 1.0 % 10/19/2023 8:[address] [facility] IMMATURE GRANS % 0.0 % 10/19/2023 8:[address] [facility] ABS. NEUTROPHILS 3.32 1.60 - 8.30 x10'3/uL 10/19/2023 8:[address] [facility] ABS. LYMPHOCYTES 0.87 0.80 - 4.70 x10'3/uL 10/19/2023 8:[address] [facility] ABS. MONOCYTES 0.60 0.00 - 1.50 x10'3/uL 10/19/2023 8:[address] [facility] ABS. EOSINOPHILS 0.33 0.00 - 0.40 x10'3/uL 10/19/2023 8:[address] [facility] ABS. BASOPHILS 0.05 0.00 - 0.20 x10'3/uL 10/19/2023 8:[address] [facility] ABS. IMMATURE GRANULOCYTES 0.00 0.00 - 0.03 x10'3/uL 10/19/2023 8:[address] [facility] 10/19/2023 12:5 7 PM CDT us Sanjeev Webster DO LABORATORY Final Re sult [facility] [address] [place] [address], * (ABNORMAL) VITAMIN B-12 (10/19/2023 12:57 PM CDT) Pathologist [facility] VITAMIN B12 S/P/B 988(H) 193 - 986 PG/ML 10/19/2023 8:[address] [facility] 10/19/2023 12:5 7 PM CDT us Sanjeev Webster DO LABORATORY Final Re sult Performing Organization Address [facility]/ZIP Co de Phone Number [facility] [address] [place] [address], [place] [phone] * FOLIC ACID SERUM (10/19/2023 12:57 PM CDT) Pathologist [facility] FOLATE >20.0 8.6 - 58.9 NG/ML 10/20/2023 10:[address] [facility] 10/19/2023 12:5 7 PM CDT us Sanjeev Webster DO LABORATORY Final Re sult Performing Organization Address [facility] Co de Phone Number [address] [place] [address], [place] [phone] * (ABNORMAL) RETICULOCYTE CT, AUTO (10/19/2023 12:57 PM CDT) [facility] RETICULOCYTE COUNT 2.5(H) 0.6 - 2.3 % 10/19/2023 9:01 PM CDT [facility] ABSOLUTE RETICULOCYTE 0.08 0.02 - 0.10 x10'6/uL 10/19/2023 9:01 PM CDT [facility] IMMATURE RETIC FRACTION 26.4(H) 3.0 - 15.9 % 10/19/2023 9:01 PM CDT [facility] RETIC HGB 30.9 28.0 - 35.0 PG 10/19/2023 9:01 PM CDT [facility] 10/19/2023 12:5 7 PM CDT Sanjeev P Luchtefeld DO LABORATORY Final Re sult Performing Organization Address [facility] Co de Phone Number [facility] [address] [place] [address], [phone] * (ABNORMAL) HAPTOGLOBIN, QUANT (10/19/2023 12:57 PM CDT) HAPTOGLOBIN <7.8(L) 30.0 - 200.0 MG/DL 10/19/2023 9:34 PM CDT [facility] 10/19/2023 12:5 7 PM CDT Sanjeev Webster DO LABORATORY Final Re sult Performing Organization Address [facility] Co de Phone Number [facility] [address] [place] [address], [phone] * (ABNORMAL) LDH, LACTATE DEHYDROGENASE (10/19/2023 12:57 PM CDT) LDH 285(H) 84 - 246 UNITS/L 10/19/2023 9:16 PM CDT [facility] 10/19/2023 12:5 7 PM CDT Sanjeev Webster DO LABORATORY Final Re sult Performing Organization Address [facility] de Phone Number [facility] [address] [place] [address], [phone] * FERRITIN (10/19/2023 12:57 PM CDT) FERRITIN 40.0 8 - 252 NG/ML 10/19/2023 8:[address] [facility] 10/19/2023 12:5 7 PM CDT us Sanjeev Webster DO LABORATORY Final Re sult Performing Organization Address [facility] de Phone Number [facility] [address] [place] [address], * IRON SAT PANEL (IRON,IBC,%SAT) (10/19/2023 12:57 PM CDT) IRON 70 50 - 170 MCG/DL 10/19/2023 8:[address] [facility] IRON BINDING CAPACITY 287 250 - 450 MCG/DL 10/19/2023 8:[address] [facility] IRON SATURATION 24 % 8:[address] [facility] Comment:REFERENCE RANGE NOT ESTABLISHED 10/19/2023 12:5 7 PM CDT Sanjeev Webster DO LABORATORY Final Re sult Performing Organization Address [facility] de Phone Number [address] [address], documented in this encounter Visit Diagnoses Diagnosis Anemia, unspecified type tank terminal gauger (current) use of anticoagulants Long-term (current) use of anticoagulants documented in this encounter Additional Health Concerns Assessment Noted Time PHQ-9 Depression Total Score: 13 023 3:56 PM CDT documented as of this encounter Care Teams Licensed Architect Relationship Specialty Start Date End Date Sanjeev Webster DO [address] [place] [address] PCP - General FAMILY PRACTICE 09/25/20 Dianne Johnson, RN [address] [place] [address] Kennel Assistant (Ambulatory) REGISTERED NURSE 08/14/20 documented as of this encounter
--- OUTSIDE RECORDS SUMMARY | 2024-03-15 00:50 | XMS_ITS | Encounter Summary ---
Author Organization [facility] Address [facility] [address] [place] [address] Care Team Providers Care Commercial Fisher Name Role Phone Dianne Johnson RN Unavailable [phone] Sanjeev Webster DO Primary Care Provider + Reason for Visit * Reason Comments Lab (SCAN) Encounter Details Date Type Department Care Team (Latest Contact Info) Description 10/23/2023 Scan HEALTH INFO SRVCS Scanned, Doc Med [...] any clubs o r organizations such as mormon groups, unions, fraternal or athletic groups, or [...] Recorded Patient Health Questionnaire-2 Score 1 08/06/2023 [facility] Occupational Stress Questionnaire Answer Date [...] st Contact Info) Description 04/14/2024 2:00 PM PERSONAL LINES UNDERWRITER Office Visit [facility] Medical Group Multispecialty Care - [facility] [address] [facility], [address] [place] [address] Julio Pulido MD [address] [place] [address] documented as of this encounter Goals Goal Patient Goal Type Associated Problems Recent Progress Patient-Stated? Author Health - patient able to perform ADLs independently General On track(2023 9:49 AM CDT) Dianne Corona RN Note: 12/17/23: Patient stated she is independent with ASL's. Establish Plan for Symptom Monitoring-CHF General On track(2023 11:36 AM PERSONAL LINES UNDERWRITER) Dianne Corona RN Note: Patient will recognize [...] Symptom Monitoring-COPD General On track(2023 11:36 AM PERSONAL LINES UNDERWRITER) Dianne Corona RN Note: Patient will recognize [...] Symptom Monitoring-DM General On track(2023 4:33 PM PERSONAL LINES UNDERWRITER) Dianne Corona RN Note: Patient will manage [...] Symptom Monitoring-HTN General On track(2023 4:33 PM PERSONAL LINES UNDERWRITER) Dianne Corona, RN Note: Patient will monitor [...] Associated Diagnosis Comments OUTSIDE LAB (SCAN ORDER) 10/23/2023 documented in this encounter Results * OUTSIDE LAB (SCAN ORDER) (10/23/2023) 10/23/2023 us Doc Med Group Scanned SCANNING Final Resu lt documented in this encounter Visit Diagnoses Not on filedocumented in this encounter Additional Health Concerns Assessment Noted Time PHQ-9 Depression Total Score: 13 023 3:56 PM CDT documented as of this encounter Care Teams Commercial Fisher Relationship Specialty Start Date End Date Sanjeev Webster DO [address] [place] [address] PCP - General FAMILY PRACTICE 09/25/20 Dianne Johnson, RN [address] [place] [address] Web Interface Developer (Ambulatory) REGISTERED NURSE 08/14/20 documented as of this encounter
--- OUTSIDE RECORDS SUMMARY | 2024-03-15 00:50 | XMS_ITS | Encounter Summary ---
Author Organization [facility] Address [facility] [place] [address] [place] [address] Care Team Providers Care Bowling Alley Attendant Name Role Phone Dianne Johnson RN Unavailable [phone] Sanjeev Webster DO Primary Care Provider + Encounter Details Date Type Department Care Team (Latest Contact Info) Description 11/16/2023 Travel Social History Tobacco Use Types Packs/Day [...] Patient Health Questionnaire-2 Score 1 08/06/2023 [facility] of Occupat ional [...] st Contact Info) Description 04/14/2024 2:00 PM CAD APPLICATION SUPPORT SPECIALIST Office Visit [facility] Medical Group Multispecialty Care - [facility] [address] [facility], [address] [place] [address] Julio Pulido MD [address] [place] [address] documented as of this encounter Goals Goal Patient Goal Type Associated Problems Recent Progress Patient-Stated? Author Health - patient able to perform ADLs independently General On track(2023 9:49 AM CDT) Dianne Corona RN Note: 12/17/23: Patient stated she is independent with ASL's. Establish Plan for Symptom Monitoring-CHF General On track(2023 11:36 AM CAD APPLICATION SUPPORT SPECIALIST) Dianne Corona RN Note: Patient will [...] Symptom Monitoring-COPD General On track(2023 11:36 AM CAD APPLICATION SUPPORT SPECIALIST) Dianne Corona RN Note: Patient will [...] Symptom Monitoring-DM General On track(2023 4:33 PM CAD APPLICATION SUPPORT SPECIALIST) Dianne Corona RN Note: Patient will [...] Symptom Monitoring-HTN General On track(2023 4:33 PM CAD APPLICATION SUPPORT SPECIALIST) Dianne Corona, RN Note: Patient will monitor [...] documented as of this encounter Care Teams Bowling Alley Attendant Relationship Specialty Start Date End Date Sanjeev Webster DO [address] [place] [address] PCP - General FAMILY PRACTICE 09/25/20 Dianne Johnson, RN [address] [place] [address] Global Program Manager (Ambulatory) REGISTERED NURSE 08/14/20 documented as of this encounter
--- OUTSIDE RECORDS SUMMARY | 2024-03-15 00:50 | XMS_ITS | Encounter Summary ---
Author Organization [facility] Address [facility] [place] [address] [place] [address] Care Team Providers Care Driver Material Handler Name Role Phone Dianne Johnson RN Unavailable [phone] Sanjeev Montez DO Primary Care Provider + Reason for Visit * Reason Onset Date Comments Medication Request 11/24/2023 Encounter Details Date Type Department Care Team (Late st Contact Info) Description 11/24/2023 Telephone [facility] Medical Group Family & Internal Medicine [facility] [address] [place] [address] Sanjeev Montez DO [address] [place] [address] Medication Request Social History Tobacco Use Types Packs/Day [...] often do you attend chur ch or holiness services? More than 4 times [...] Patient Health Questionnaire-2 Score 1 08/06/2023 [facility] of Occupat ional Health [...] Assessment Author Status No 08/26/2022 7:46 PM Indiaan Call RN Active * Because of a [...] Progress Notes * Yenifer Wolf MA - 11/25/2023 9:44 AM CDTAddended by: YENIFER WOLF on: 11/25/2023 09:44 AM Modules accepted: Orders * Lola Eli - 11/24/2023 3:18 PM CDT Refill request received from Patient Medication: metoprolol succinate ER (TOPROL-XL) 25 MG 24 hr tablet Warfarin 1 MG tablet Pharmacy: [address] Last visit with SANJEEV MONTEZ in FAMILY PRACTICE was on: 11/19/2023 in [facility] Future Appointments Date Time Provider Department Center 12/08/2023 1:00 PM Sanjeev Montez DO [facility] 03/04/2024 1:00 PM [facility] 04/14/2024 2:00 PM Julio Pulido MD [facility] Pts daughter called in asking for more Ozempic through patient assistance. Please advise. [employer] patient assistance program. documented in this encounter Plan of Treatment Upcoming Encounters Date Type Department Care Team (Late st Contact Info) Description 04/14/2024 2:00 PM POWER TONG OPERATOR Office Visit [facility] Medical Group Multispecialty Care - [address], [address] [place] [address] Julio Pulido MD [address] [place] [address] documented as of this encounter Goals Goal Patient Goal Type Associated Problems Recent Progress Patient-Stated? Author Health - patient able to perform ADLs independently General On track(2023 9:49 AM CDT) Dianne Corona RN Note: 12/17/23: Patient stated she is independent with ASL's. Establish Plan for Symptom Monitoring-CHF General On track(2023 11:36 AM POWER TONG OPERATOR) Dianne Corona, DALE Note: Patient will recognize [...] Symptom Monitoring-COPD General On track(2023 11:36 AM POWER TONG OPERATOR) Dianne Corona, DALE Note: Patient will recognize symptoms of COPD [...] Symptom Monitoring-DM General On track(2023 4:33 PM POWER TONG OPERATOR) Dianne Corona RN Note: Patient will [...] Symptom Monitoring-HTN General On track(2023 4:33 PM POWER TONG OPERATOR) Dianne Corona RN Note: Patient will monitor B/P several times per week , record readings and report to physician or CC if B/P consistently >130/80 Take your medications as prescribed. Follow up with your provider as scheduled. Take your blood pressure at least several times a week if able. documented as of this encounter Visit Diagnoses Diagnosis H/O mechanical aortic valve replacement- Primary Heart valve replaced by other means Atrial fibrillation with RVR ([facility]) Atrial fibrillation Chronic anticoagulation Encounter for long-term (current) use of anticoagulants documented in this encounter Additional Health Concerns Assessment Noted Time PHQ-9 Depression Total Score: 13 023 3:56 PM CDT documented as of this encounter Care Teams Driver Material Handler Relationship Specialty Start Date End Date Sanjeev Montez DO [address] [place] [address] PCP - General FAMILY PRACTICE 09/25/20 Dianne Johnson, RN [address] [place] [address] Wastewater Treatment Plant Operator (Ambulatory) REGISTERED NURSE 08/14/20 documented as of this encounter
--- OUTSIDE RECORDS SUMMARY | 2024-03-15 00:50 | XMS_ITS | Encounter Summary ---
Author Organization [facility] Address [facility] [place], [place] [address] [place] [address] Care Team Providers Care Cable Splicer Helper Name Role Phone Dianne Johnson RN Unavailable [phone] Sanjeev Webster DO Primary Care Provider + Reason for Referral * Consultation/Treatment (Routine) - Authorized Specialty Diagnoses / Procedures Referred By Ian t Referred To Contact HEMATOLOGY/ONCOLOGY Diagnoses Senile osteoporosis Procedures OFFICE/OUTPATIENT NEW LOW MDM 30-44 MINUTES OFFICE/OUTPT VISIT,NEW,LEVL IV OFFICE/OUTPT VISIT,NEW,LEVL V OFFICE/OUTPT VISIT,EST,LEVL III OFFICE/OUTPT VISIT,EST,LEVL IV OFFICE/OUTPT VISIT,EST,LEVL V Sanjeev Webster DO [address] [place] [address] Phone: tel: fax: Tung Chavez MD [address] [address] Phone: tel: fax: Referral ID Status Reason Start Date Expiration Date Visits Requested Visits Authorized [id number] Authorized Specialty Services 12/01/2023 11/30/2024 12 12 Scheduling Instructions Infusion/injection services. 1 year referral requested Reason for Visit * Reason Onset Date Comments Referral 11/25/2023 Encounter Details Date Type Department Care Team (Late st Contact Info) Description 11/25/2023 Telephone [facility] Medical Group Family & Internal Medicine [facility] [address] [place] [address] Juan AFlory crowetania Leon DO [address] [place], [place] [id number] Referral Social History Tobacco Use Types Packs/Day [...] often do you attend chur ch or druze services? More than 4 times per year [...] Notes * Yenifer Ingram MA - 11/25/2023 12:[address] Chavez office faxed a referral request for infusion/injection services. The referrral was requested for 1 year. Referral placed. documented in this encounter Plan of Treatment Upcoming Encounters Date Type Department Care Team (Late st Contact Info) Description 04/14/2024 2:00 PM ELEMENTARY ASSISTANT PRINCIPAL Office Visit [facility] Medical Group Multispecialty Care - [facility] 3 [facility], [address] [place] [address] Julio Pulido MD [address] [place] [address] Scheduled Referrals Name Type Priority Associated Diagnoses Orde r Schedule Ambulatory referral to Hematology Referral Routine Senile osteoporosis Ordered: 11/25/2023 documented as of this encounter Goals Goal Patient Goal Type Associated Problems Recent Progress Patient-Stated? Author Health - patient able to perform ADLs independently General On track(2023 9:49 AM CDT) Dianne Corona RN Note: 12/17/23: Patient stated she is independent with ASL's. Establish Plan for Symptom Monitoring-CHF General On track(2023 11:36 AM ELEMENTARY ASSISTANT PRINCIPAL) Dianne Corona, RN Note: Patient will recognize [...] Symptom Monitoring-COPD General On track(2023 11:36 AM ELEMENTARY ASSISTANT PRINCIPAL) Dianne Corona, RN Note: Patient will recognize [...] Symptom Monitoring-DM General On track(2023 4:33 PM ELEMENTARY ASSISTANT PRINCIPAL) Dianne Corona RN Note: Patient will manage [...] Symptom Monitoring-HTN General On track(2023 4:33 PM ELEMENTARY ASSISTANT PRINCIPAL) Dianne Corona, RN Note: Patient will monitor B/P several times per week , record readings and report to physician or CC if B/P consistently >130/80 Take your medications as prescribed. Follow up with your provider as scheduled. Take your blood pressure at least several times a week if able. documented as of this encounter Visit Diagnoses Diagnosis Senile osteoporosis- Primary documented in this encounter Additional Health Concerns Assessment Noted Time PHQ-9 Depression Total Score: 13 023 3:56 PM CDT documented as of this encounter Care Teams Cable Splicer Helper Relationship Specialty Start Date End Date Sanjeev Webster DO [address] [place] [address] PCP - General FAMILY PRACTICE 09/25/20 Dianne Johnson RN [address] [place] [address] Top Polisher (Ambulatory) REGISTERED NURSE 08/14/20 documented as of this encounter
--- OUTSIDE RECORDS SUMMARY | 2024-03-15 00:50 | XMS_ITS | Encounter Summary ---
Author Organization [facility] Address [facility] [place] [address] [place] [address] Care Team Providers Care Full Stack Software Engineer Name Role Phone Dianne Johnson RN Unavailable [phone] Sanjeev Webster DO Primary Care Provider + Encounter Details Date Type Department Care Team (Latest Contact Info) Description 11/23/2023 Travel Social History Tobacco Use Types Packs/Day [...] How often do you attend chur or adventism services? More than 4 times per year 08/26/2022 Do you belong to any clubs o r organizations such as yarsani groups, unions, fraternal or athletic groups, or [...] Recorded Patient Health Questionnaire-2 Score 1 08/06/2023 [facility] - [...] st Contact Info) Description 04/14/2024 2:00 PM DRESS MARKER Office Visit [facility] Medical Group Multispecialty Care - [facility] [address] [facility], [address] [place] [address] Julio Pulido MD 3 [place] [address] documented as of this encounter Goals Goal Patient Goal Type Associated Problems Recent Progress Patient-Stated? Author Health - patient able to perform ADLs independently General On track(2023 9:49 AM CDT) Dianne Corona RN Note: 12/17/23: Patient stated she is independent with ASL's. Establish Plan for Symptom Monitoring-CHF General On track(2023 11:36 AM DRESS MARKER) Dianne Corona RN Note: Patient will recognize [...] Symptom Monitoring-COPD General On track(2023 11:36 AM DRESS MARKER) Dianne Corona RN Note: Patient will recognize [...] Symptom Monitoring-DM General On track(2023 4:33 PM DRESS MARKER) Dianne Corona RN Note: Patient will manage [...] Symptom Monitoring-HTN General On track(2023 4:33 PM DRESS MARKER) Dianne Corona, RN Note: Patient will monitor [...] documented as of this encounter Care Teams Full Stack Software Engineer Relationship Specialty Start Date End Date Sanjeev Webster DO [address] [place] [address] PCP - General FAMILY PRACTICE 09/25/20 Dianne Johnson, RN [address] [place] [address] Psychiatrist (Ambulatory) REGISTERED NURSE 08/14/20 documented as of this encounter
--- OUTSIDE RECORDS SUMMARY | 2024-03-15 00:50 | XMS_ITS | Encounter Summary ---
Author Organization [facility] Address [facility] [facility] [place] [address] [place] [address] Care Team Providers Care Automobile Mechanic Motor Name Role Phone Dianne Johnson RN Unavailable [phone] Sanjeev Webster DO Primary Care Provider + Reason for Visit * Reason Onset Date Comments Care Management 11/12/2023 Encounter Details Date Type Department Care Team (Late st Contact Info) Description 11/12/2023 Patient Outreach [facility] Medical Group Family & Internal Medicine [address] [address] Dianne Johnson, RN [address] [place] [address] Care Management Social History Tobacco [...] Recorded Patient Health Questionnaire-2 Score 1 08/06/2023 [facility] - [...] Progress Notes * Dianne Johnson RN - 11/12/2023 10:22 AM CDT Images from the original note were not included. Chronic Care Management: Patient concerns or urgent matters that need addressed: Patient stated she did not contact PCP office this morning to get a referral for . She stated office may have contacted PCP office for referral. She is requesting address, directions and confirm time at 1:30 PM today. Patient scheduled to see tomorrow at 1:00 PM. Stated her friend took her to the appointment in October and she doesn't remember how to get to his office. CC will call office to confirm address and get directions. Patient thanked CC. 11/12/23: CC contacted 's office to confirm appointment today at 1:30 PM. Patient needs to arrive around 1:15 PM to register. Address is [address], [address] in [place]. Patient will pass [employer] on the right hand side and office is the [address] left after restaurant. 11/12/23: Contacted office. Confirmed address: [address] [place] [address] in [place]. Across from [facility]. 11/12/23: Contacted patient regarding the above. She wrote the above information down and reread it back to CC. Confirmed appointment with PCP on 11/19/23 at 10:40 am. Patient Status: Reviewed recent notes in [facility]. According to note on 11/10/23 it states the following: Patient called in to schedule hospital follow up appointment. Patient was DC on 11/03/23 from [place]. TCM call was missed. Will request records. Patient has an appointmet on 11/19/23. Opportunity given for all questions to be answered, no further needs voiced at this time. LL-11/10/23 Contacted patient today. Stated she was admitted to [facility] in October for heart palpitations. Stated she doesn't want to see [employer] Bi Architect at office anymore. Stated she prefersto see [employer] Bi Architect at [place]. She has an appointment scheduled but doesn't have the information to give to CC at this time. She is aware she will need an [facility] referral. Stated she will have this information available for on 11/19/23. Stating she wants to see a [employer] Bi Architect more than once a year. Informed patient she was seen by on 09/04/23 and scheduled for a 6 month f/u on 03/04/24. Patient stated she will further discuss with PCP at upcoming visit on 11/19/23. Patient denies any issues with swelling, increased sob, heart palpitations or CP at this time. Encouraged to continue to monitor and report the onset of any changes. Patient stated she is still taking Warfarin 6 mg daily and stated she thinks medications have been added from [place]. Stated she isnot for sure since her DIL takes care of her medications. H&P and a total of [address] [facility] at 10/31/23 admission. CC will contact [place] medical records and get D/C summary and D/C medication list for PCP. Patient is aware. No further needs noted at this time. All questions have been answered. Encouraged to call at the onset of any changes. Patient verbalizes understanding and thanked CC for calling. 11/12/23: Received 42 pages from [facility] [place] medical records. Copy faxed to PCP office. Patient admittedon 10/31/23 for sob and palpitations. New medication started: metoprolol succinate 25 mg daily. 11/12/23: Contacted TORRI Magana on HIPAA. She takes care of patient's medications. She confirmed patient is taking metoprolol succinate 25 mg daily and stated ordered cinacalcet 30 mg taking 1/2 tablet daily. Izzy stated she is at work right now and unable to review medication list with CC at this time. Confirmed patient is taking Warfarin 6 mg daily. Stated patient is not taking prednisone anymore. Instructed Izzy to give patient an updated medication list for upcoming appointment with PCP on 11/19/23. Izzy verbalizes understanding and thanked CC for calling. Message sent to PCP and PCP nursing team to find out when patient should repeat INR. Plan of Care: buildings and grounds coordinator will continue to follow up by [...] Provider Department Center 11/19/2023 10:40 AM Sanjeev Webster DO [facility] 12/08/2023 1:00 PM Sanjeev Webster DO [facility] 03/04/2024 1:00 PM Sania Gomez MD [facility] 04/14/2024 2:00 PM MD NALINI Gutierrez MSC [facility] Quality care gaps: Health Maintenance Topic Date Due Annual Medicare Wellness Visit Never done Zoster Vaccines (3 of 3) 02/17/2024 (Originally 01/06/2023) RSV Immunization or 60+ Years (1 - 1-dose 60+ series) 02/17/2024 (Originally 2004) COVID-19 Vaccine ( - 2022- season) 2112 (Originally 11/08/2023) Hemoglobin A1C 02/06/2024 Diabetes: Retinopathy Eye Exam 04/21/2024 Lipid Panel 08/13/2024 Kidney Health Evaluation 08/13/2024 DTaP, Tdap and Td Vaccines (4 - Td or Tdap) 09/05/2030 Dexa Scan (General) Completed Pneumococcal Vaccine: 65+ Years Completed Hepatitis C Completed Meningococcal Vaccine Aged Out RSV Immunizations Under 20 Months Aged Out Problem List: Patient Active Problem List Diagnosis Abnormal stress test Chronic anticoagulation Coronary artery disease involving beaver coronary artery of beaver heart without angina pectoris H/O mechanical aortic valve replacement Hypertensive heart disease with congestive heart failure ([facility]) LBBB (left bundle branch block) Myopathy VAZQUEZ (obstructive sleep apnea) Paroxysmal atrial flutter ([facility]) Benign hypertension with CKD (chronic kidney disease) stage III ([facility]) Memory deficits Hearing deficit, bilateral History of cataract extraction, unspecified laterality Vitamin D deficiency Hypercalcemia Chronic frontal sinusitis Constipation, unspecified constipation type Chronic bilateral low back pain without sciatica Iron deficiency anemia, unspecified iron deficiency anemia type Disorder of skin of trunk Anemia Body mass index (BMI) 31.0-31.9, adult 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[facility]) Benign hypertension with stage 3b chronic kidney disease ([facility]) Cobalamin deficiency Compression fracture of thoracic vertebra ([facility]) Depression Diabetic polyneuropathy ([facility]) Disorder of rotator cuff Diverticular disease Dysphagia Elevated troponin Gastroesophageal reflux disease without esophagitis Hyperlipidemia, unspecified hyperlipidemia type Vascular dementia ([facility]) Unknown and unspecified causes of morbidity Syncope, unspecified syncope type Wrist joint pain Requires lifelong warfarin therapy Hyperparathyroidism ([facility]) Presence of prosthetic heart valve Plantar fascial fibromatosis Peripheral neuropathy Parathyroid adenoma Polymyalgia rheumatica ([facility]) Osteoporosis Numbness Muscle cramps Closed stable burst fracture of sixth thoracic vertebra, initial encounter ([facility]) Chest pain Contusion of scalp Knee pain Localized, primary osteoarthritis Osteoarthritis of knee Traumatic closed displaced fracture of distal end of radius Shoulder joint pain Hyperlipidemia associated with type 2 diabetes mellitus ([facility]) Hematoma Anxiety Diastolic heart failure ([facility]) Internal hemorrhoids Leukoencephalopathy Major depression single episode, in partial remission ([facility]) Metacarpal bone fracture Mitral valve disorder Peripheral arterial occlusive disease ([facility]) Primary osteoarthritis involving multiple joints Vision loss COPD (chronic obstructive pulmonary disease) ([facility]) Diarrhea Drug-induced constipation H/O mechanical aortic valve replacement Age-related osteoporosis with current pathological fracture Care Management Physical deconditioning Chronic heart failure with preserved ejection fraction (HFpEF) ([facility]) Paroxysmal atrial fibrillation ([facility]) Hypertension associated with type 2 diabetes mellitus ([facility]) Encounter for prophylactic measures, unspecified Graves' disease Cirrhosis of liver without ascites, unspecified hepatic cirrhosis type ([facility]) Stage 3b chronic kidney disease ([facility]) OLIVE (acute kidney injury) ([facility]) Heart failure with mildly reduced ejection fraction (HFmrEF) ([facility]) Hyperthyroidism Medications: Current Outpatient Medications Medication Sig Dispense Refill albuterol sulfate HFA 108 (90 Base) MCG/ACT inhaler INHALE 2 PUFFS BY MOUTH EVERY 6 HOURS NEEDEDFOR WHEEZING 18 g 5 ALPRAZolam (XANAX) 0.5 MG tablet TAKE 1/2 (ONE-HALF) TABLET BY MOUTH NIGHTLY NEEDED FOR SLEEP 15tablet 0 Cholecalciferol (VITAMIN D3) 25 MCG (1000 UT) Cap Take 1 capsule (1,000 Units total) by mouth daily. cinacalcet (SENSIPAR) 30 MG tablet Take 0.5 tablets (15 mg total) by mouth daily. furosemide (LASIX) 20 MG tablet Take 1 tablet (20 mg total) by mouth daily. 30 tablet 0 gabapentin (NEURONTIN) 300 MG capsule take 1 capsule by mouth three times daily 270 capsule 0 HYDROcodone-acetaminophen (NORCO) 5-325 MG tablet Take 1-2 tablets by mouth every 6 (six) hours as needed for Pain. Indications: Chronic Pain 60 tablet 0 methIMAzole (TAPAZOLE) 5 MG tablet Take 1 tablet (5 mg total) by mouth daily. omeprazole (PRILOSEC) 40 MG capsule Take 1 capsule (40 mg total) by mouth daily. 90 capsule 1 potassium chloride CR (K-TAB) 10 MEQ Tab CR tablet Take 1 tablet by mouth once daily 90 tablet 0 simvastatin (ZOCOR) 10 MG tablet Take 1 tablet (10 mg total) by mouth nightly at bedtime. 90 tablet3 venlafaxine XR (EFFEXOR-XR) 150 MG 24 hr capsule Take 1 capsule by mouth once daily 90 capsule 0 vitamin B-12 (CYANOCOBALAMIN) (CYANOCOBALAMIN) 1000 mcg tablet Take 1 tablet (1,000 mcg total) by mouth daily. warfarin (COUMADIN) 6 MG tablet Take 1 tablet (6 mg total) by mouth daily. 90 tablet 0 acetaminophen (TYLENOL) 500 MG tablet Take 1 tablet (500 mg total) by mouth daily as needed. No more then 2500 mg per day. B Complex Cap capsule Take 1 capsule by mouth daily. Blood Glucose Monitoring Suppl (ONE TOUCH ULTRA 2) w/Device Kit 1 Device by Does not apply route daily. 1 kit 0 docusate sodium (COLACE) 100 MG capsule Take one by mouth twice daily or as needed for constipation. 30 capsule 0 ferrous sulfate, 65 mg elemental, 325 (65 FE) MG tablet Take 1 tablet (325 mg total) by mouth dailywith breakfast. Glucose Blood (BLOOD GLUCOSE TEST STRIPS) Strip 1 Device by Does not apply route daily. 100 strip 3 iron polysaccharides (NIFEREX) 150 MG capsule Take 1 capsule (150 mg total) by mouth daily. 30 capsule 2 Lancets (ONETOUCH ULTRASOFT) lancets 1 each by Other route as needed. Use as instructed 100 each 3 metoprolol succinate ER (TOPROL-XL) 25 MG 24 hr tablet Take 0.5 tablets (12.5 mg total) by mouth daily. (Patient taking differently: Take 1 tablet (25 mg total) by mouth daily.) 30 tablet 1 Semaglutide (OZEMPIC, 0.25 OR 0.5 MG/DOSE, SC) Inject 0.5 mg into the skin once a week. warfarin (COUMADIN) 2 MG tablet Take 1 tablet (2 mg total) by mouth daily. (Patient not taking: Reported on 11/12/2023) 30 tablet 1 warfarin (COUMADIN) 5 MG tablet Take 1 tablet (5 mg total) by mouth daily. (Patient not taking: Reported on 11/12/2023) 30 tablet 1 No current facility-administered medications for this visit. documented in this encounter Plan of Treatment Upcoming Encounters Date Type Department Care Team (Late st Contact Info) Description 04/14/2024 2:00 PM RADIOTELEGRAPHER Office Visit [facility] Medical Group Multispecialty Care - [facility] 3 [facility], [address] [place] [id number] Julio Pulido MD 3 [place] [address] documented as of this encounter Goals Goal Patient Goal Type Associated Problems Recent Progress Patient-Stated? Author Health - patient able to perform ADLs independently General On track(2023 9:49 AM CDT) Dianne Corona RN Note: 12/17/23: Patient stated she is independent with ASL's. Establish Plan for Symptom Monitoring-CHF General On track(2023 11:36 AM RADIOTELEGRAPHER) Dianne Corona RN Note: Patient will recognize [...] Symptom Monitoring-COPD General On track(2023 11:36 AM RADIOTELEGRAPHER) Dianne Corona RN Note: Patient will recognize [...] Symptom Monitoring-DM General On track(2023 4:33 PM RADIOTELEGRAPHER) Dianne Corona, RN Note: Patient will manage [...] Symptom Monitoring-HTN General On track(2023 4:33 PM RADIOTELEGRAPHER) Dianne Corona, RN Note: Patient will monitor [...] documented as of this encounter Care Teams Automobile Mechanic Motor Relationship Specialty Start Date End Date Sanjeev Webster DO [address] [place] [address] PCP - General FAMILY PRACTICE 09/25/20 Dianne Johnson, RN [address] [place] [address] Welding Instructor (Ambulatory) REGISTERED NURSE 08/14/20 documented as of this encounter
--- OUTSIDE RECORDS SUMMARY | 2024-03-15 00:50 | XMS_ITS | Encounter Summary ---
Author Organization [facility] Address [facility] [place] [address] [place] [address] Care Team Providers Care Director Payer Name Role Phone Dianne Johnson RN Unavailable [phone] Sanjeev Webster DO Primary Care Provider + Reason for Visit * Reason Onset Date Comments Medication Problem 11/20/2023 Encounter Details Date Type Department Care Team (Late st Contact Info) Description 11/20/2023 Telephone [facility] Medical Group Family & Internal Medicine [facility] [address] [place] [address] Sanjeev Webster DO [address] [place] [address] Medication Problem Social History Tobacco Use Types Packs/Day Years [...] any clubs o r organizations such as amish groups, unions, fraternal or athletic groups, or [...] Recorded Patient Health Questionnaire-2 Score 1 08/06/2023 [facility] Occupat ional Health - [...] documented in this encounter Progress Notes * Shanel Staley MA - 11/20/2023 3:23 PM CDT Spoke with Izzy, pt was in office earlier this week and was supposed to let provider know that she has concerns about her Ozempic injection running out of her leg after administering, but did not discuss at visit. Pt doses on Saturdays so it would not be possible to watch patient take injection without altering dosing schedule. Recommended patient try giving injection in abdomen and pinching up skin prior to giving to see if that helps. Izzy said they will try and let us know. If that doesn't work may need to do education with pt, but it is normal for a small amount to run out after subcutaneous injection. documented in this encounter Plan of Treatment Upcoming Encounters Date Type Department Care Team (Late st Contact Info) Description 04/14/2024 2:00 PM PHYSICAL EDUCATION DEPARTMENT CHAIR Office Visit [facility] Medical Group Multispecialty Care - [facility] [address] [facility], [address] [place] [phone] Julio Pulido MD 3 [place] [address] documented as of this encounter Goals Goal Patient Goal Type Associated Problems Recent Progress Patient-Stated? Author Health - patient able to perform ADLs independently General On track(2023 9:49 AM CDT) No Dianne Johnson RN Note: 12/17/23: Patient stated she is independent with ASL's. Establish Plan for Symptom Monitoring-CHF General On track(2023 11:36 AM PHYSICAL EDUCATION DEPARTMENT CHAIR) Dianne Corona RN Note: Patient will recognize [...] Symptom Monitoring-COPD General On track(2023 11:36 AM PHYSICAL EDUCATION DEPARTMENT CHAIR) Dianne Corona RN Note: Patient will recognize [...] Symptom Monitoring-DM General On track(2023 4:33 PM PHYSICAL EDUCATION DEPARTMENT CHAIR) Dianne Corona RN Note: Patient will manage [...] Symptom Monitoring-HTN General On track(2023 4:33 PM PHYSICAL EDUCATION DEPARTMENT CHAIR) No Dianne Johnson RN Note: Patient will [...] as of this encounter Care Teams Director Payer Relationship Specialty Start Date End Date Sanjeev Webster DO [address] [place] [address] PCP - General FAMILY PRACTICE 09/25/20 Dianne Johnson, RN [address] [place] [id number] Manager Payer (Ambulatory) REGISTERED NURSE 08/14/20 documented as of this encounter
--- OUTSIDE RECORDS SUMMARY | 2024-03-15 00:50 | XMS_ITS | Encounter Summary ---
Author Organization [facility] Address [facility]6 [facility]. [place], [place] [address] [place] [address] Care Team Providers Care Finisher Operator Name Role Phone Dianne Johnson RN Unavailable [phone] Sanjeev Webster DO Primary Care Provider + Reason for Visit * Reason Onset Date Comments Question 11/19/2023 Encounter Details Date Type Department Care Team (Late st Contact Info) Description 11/19/2023 Telephone [facility] Medical Group Family & Internal Medicine [id number] [place] [address] Sanjeev Webster DO [address] [place] [address] Question Social History Tobacco Use Types Packs/Day Years [...] How often do you attend chur or judaism services? More than 4 times per year 08/26/2022 Do you belong to any clubs o r organizations such as druze groups, unions, fraternal or athletic groups, or [...] Recorded Patient Health Questionnaire-2 Score 0 12/08/2023 [facility] Occupat ional Health - Occupational [...] Progress Notes * Sanjeev Webster DO - 11/19/2023 11:31 AM CDT Pt states Dr. Mattson's office (endocrine) wanted to send out a new medication for her bones. Canwe request information about this? documented in this encounter Plan of Treatment Upcoming Encounters Date Type Department Care Team (Late st Contact Info) Description 04/14/2024 2:00 PM POSTING CLERK Office Visit [facility] Medical Group Multispecialty Care - [facility] 3 [facility], [address] [place] [phone] Julio Pulido MD 3 [place] [address] documented as of this encounter Goals Goal Patient Goal Type Associated Problems Recent Progress Patient-Stated? Author Health - patient able to perform ADLs independently General On track(2023 9:49 AM CDT) Dianne Corona RN Note: 12/17/23: Patient stated she is independent with ASL's. Establish Plan for Symptom Monitoring-CHF General On track(2023 11:36 AM POSTING CLERK) Dianne Corona, RN Note: Patient will recognize [...] Symptom Monitoring-COPD General On track(2023 11:36 AM POSTING CLERK) Dianne Corona RN Note: Patient will [...] Symptom Monitoring-DM General On track(2023 4:33 PM POSTING CLERK) Dianne Corona RN Note: Patient will [...] Symptom Monitoring-HTN General On track(2023 4:33 PM POSTING CLERK) Dianne Corona RN Note: Patient will [...] documented as of this encounter Care Teams Finisher Operator Relationship Specialty Start Date End Date Sanjeev Webster DO [address] [place] [address] PCP - General FAMILY PRACTICE 09/25/20 Dianne Johnson, RN [address] [place], [place] [address] Vehicle Dismantler (Ambulatory) REGISTERED NURSE 08/14/20 documented as of this encounter
--- OUTSIDE RECORDS SUMMARY | 2024-03-15 00:50 | XMS_ITS | Encounter Summary ---
Author Organization [facility] Address [facility] [place] [address] [place] [address] Care Team Providers Care Human Relations Professor Name Role Phone Casey Johnson RN Unavailable [phone] Sanjeev Webster DO Primary Care Provider + Reason for Visit * Reason Onset Date Comments Care Management 10/20/2023 Encounter Details Date Type Department Care Team (Late st Contact Info) Description 10/20/2023 Patient Outreach [facility] Medical [facility] Family & Internal Medicine [address] [address] Casey Johnson, RN [address] [place] [address] Care Management Social History Tobacco [...] How often do you attend chur or jain services? More than 4 times [...] Progress Notes * Casey Johnson RN - 10/20/2023 1:42 PM CDT Chronic Care Management: 10/20/23: Left message for patient to return phone call. 10/21/23: Contacted patient. See below for details. Patient concerns that need addressed: Spoke to patient today. She is going to [place] every [place]. Reports 5 lb weight gain in 3 weeks. She stated it's hard to say if it's related to increased fluid. Reports a little increase in swelling below the knees. Hands are no longer swollen and she can bend her hands okay. Denies worsening sob. Denies s/s of CHF or COPD exacerbation at this time. Patient informed CC she is scheduled to see this Thursday in [place]. Stated she is having a friend take her. Stated the last time she went to an appointment the doctor would not see her since she was late. Patient stated she was lost looking for the building. Patient also informed CC she has lab work scheduled for next week at [facility]. Reports cramps in legs really bad at night. Stated she is using a heating pad and voltaren gel and it helps some. Reviewed CC note from 09/16/23. PCP held Simvastatin for two weeks. Patient can't remember if it helped or not. CC will reach out to Izzy and find out if she held Simvastatin and will call patient back. 10/21/23: Spoke to Izzy and stated she held Simvastatin for two weeks. Around 10/09/23 PCP office informed her to resume simvastatin and take Super B complex to see if this helps with leg pain. Izzy is giving this to her in the morning. She wants to know if it will make a difference giving it to her at night. Message sent to PCP nursing team. 10/21/23: Contacted patient to inform CC spoke to Izzy about the above. Patient stated she can't remember if it helped holding Simvastatin or not. CC will send message to PCP for further recommendations. Patient thanked CC for calling. Plan of Care: instructional technology coordinator will continue to follow up by phone, provide resources when needed, educate on disease management, and assess chronic conditions. Patient Goals: Goals Addressed This Visit's Progress Establish Plan for Symptom Monitoring-COPD On track [...] Future Appointments Date Time Provider Department Center 10/27/2023 1:00 PM [facility] 12/08/[facility] 1:00 PM Sanjeev Webster DO [facility] 03/04/2024 1:00 PM Sania Gomez MD [facility] 04/14/2024 2:00 PM MD NALINI Gutierrez [facility] Quality care gaps: Health Maintenance Topic Date Due Annual Medicare Wellness Visit Never done Zoster Vaccines (3 of 3) 02/17/2024 (Originally 01/06/2023) RSV Immunization or 60+ Years (1 - 1-dose 60+ series) 02/17/2024 (Originally 2004) COVID-19 Vaccine (5 - 2022- season) 2112 (Originally 11/07/2022) Hemoglobin A1C 02/06/2024 Diabetes: Retinopathy Eye Exam [...] test Chronic anticoagulation Coronary artery disease involving [place] coronary artery of [place] heart without angina pectoris H/O mechanical aortic valve replacement Hypertensive heart disease with congestive heart failure ([facility]) LBBB (left bundle branch block) Myopathy VAZQUEZ (obstructive sleep apnea) Paroxysmal atrial flutter ([facility]) Benign hypertension with CKD (chronic kidney disease) stage III ([facility]) Memory deficits Hearing deficit, bilateral History of cataract extraction, unspecified laterality Vitamin D deficiency Hypercalcemia Chronic frontal sinusitis Constipation, unspecified constipation type Chronic bilateral low back pain without sciatica Iron deficiency anemia, unspecified iron deficiency anemia type Disorder of skin of trunk Anemia Body mass index (BMI) 31.0-31.9, adult 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[facility]) Benign hypertension with stage 3b chronic kidney disease ([facility]) Cobalamin deficiency Compression fracture of thoracic vertebra ([facility]) Depression Diabetic polyneuropathy ([facility]) Disorder of rotator cuff Diverticular disease Dysphagia Elevated troponin Gastroesophageal reflux disease without esophagitis Hyperlipidemia, unspecified hyperlipidemia type Vascular dementia ([facility]) Unknown and unspecified causes of morbidity Syncope, unspecified syncope type Wrist joint pain Requires lifelong warfarin therapy Hyperparathyroidism ([facility]) Presence of prosthetic heart valve Plantar fascial fibromatosis Peripheral neuropathy Parathyroid adenoma Polymyalgia rheumatica ([facility]) Osteoporosis Numbness Muscle cramps Closed stable burst fracture of sixth thoracic vertebra, initial encounter ([facility]) Chest pain Contusion of scalp Knee pain Localized, primary osteoarthritis Osteoarthritis of knee Traumatic closed displaced fracture of distal end of radius Shoulder joint pain Hyperlipidemia associated with type 2 diabetes mellitus ([facility]) Hematoma Anxiety Diastolic heart failure ([facility]) Internal hemorrhoids Leukoencephalopathy Major depression single episode, in partial remission ([facility]) Metacarpal bone fracture Mitral valve disorder Peripheral arterial occlusive disease ([facility]) Primary osteoarthritis involving multiple joints Vision loss COPD (chronic obstructive pulmonary disease) ([facility]) Diarrhea Drug-induced constipation H/O mechanical aortic valve replacement Age-related osteoporosis with current pathological fracture Care Management Physical deconditioning Chronic heart failure with preserved ejection fraction (HFpEF) ([facility]) Paroxysmal atrial fibrillation ([facility]) Hypertension associated with type 2 diabetes mellitus ([facility]) Encounter for prophylactic measures, unspecified Graves' disease Cirrhosis of liver without ascites, unspecified hepatic cirrhosis type ([facility]) Stage 3b chronic kidney disease ([facility]) OLIVE (acute kidney injury) ([facility]) Heart failure with mildly reduced ejection fraction (HFmrEF) ([facility]) Hyperthyroidism Medications: Current Outpatient Medications Medication Sig [...] tablets (15 mg total) by mouth daily. docusate sodium (COLACE) 100 MG capsule Take [...] tablets (12.5 mg total) by mouth daily. 30 tablet 1 omeprazole (PRILOSEC) 40 MG capsule Take 1 capsule (40 mg total) by mouth daily. 90 capsule 1 potassium chloride CR (K-TAB) 10 MEQ Tab CR tablet Take 1 tablet by mouth once daily 90 tablet 0 Semaglutide (OZEMPIC, 0.25 OR 0.5 MG/DOSE, SC) [...] mouth daily. 30 tablet 1 warfarin (COUMADIN) 6 MG tablet Take 1 tablet (6 mg total) by mouth daily. 90 tablet 0 No current facility-administered medications for this visit. Chronic Care Management- Time Spent with Patient Time spent with patient (minutes): 23 (Comment: Time spent with patient and Izzy (DNL)) Time spent performing chart review (minutes): 7 Total time (minutes): 30 CASEY JOHNSON RN I reviewed the patient's status and education provided by CASEY JOHNSON RN. I agree with the findings and recommendations made. Cosigned by Sanjeev Webster DO at 10/28/2023 4:29 PM CDT documented in this encounter Plan of Treatment Upcoming Encounters Date Type Department Care Team (Late st Contact Info) Description 04/14/2024 2:00 PM CMO Office Visit [facility] Multispecialty Care - [facility] [address] [facility], [address] [place] [address] Julio Pulido MD [address] [place] [address] documented as of this encounter Goals Goal Patient Goal Type Associated Problems Recent Progress Patient-Stated? Author Health - patient able to perform ADLs independently General On track(2023 9:49 AM CDT) Casey Corona RN Note: 12/17/23: Patient stated she is independent with ASL's. Establish Plan for Symptom Monitoring-CHF General On track(2023 11:36 AM CMO) Casey Corona RN Note: Patient will recognize [...] Symptom Monitoring-COPD General On track(2023 11:36 AM CMO) Casey Corona RN Note: Patient will recognize [...] Symptom Monitoring-DM General On track(2023 4:33 PM CMO) Casey Corona RN Note: Patient will manage [...] Symptom Monitoring-HTN General On track(2023 4:33 PM CMO) Casey Corona RN Note: Patient will monitor [...] Chronic obstructive pulmonary disease, unspecified COPD type ([facility])- Primary Chronic heart failure with preserved ejection fraction (HFpEF) (CMS/HCC HHS/HCC) documented in this encounter Additional Health Concerns Assessment Noted Time PHQ-9 Depression Total Score: 13 023 3:56 PM CDT documented as of this encounter Care Teams Human Relations Professor Relationship Specialty Start Date End Date Sanjeev Webster DO [address] [place] [id number] PCP - General FAMILY PRACTICE 09/25/20 Casey Johnson, RN [address] [place] [address] Four Roll Calender Operator (Ambulatory) REGISTERED NURSE 08/14/20 documented as of this encounter
--- OUTSIDE RECORDS SUMMARY | 2024-03-15 00:51 | XMS_ITS | Encounter Summary ---
Author Organization [facility] Address Critical access hospital6 [facility] [place] [address] [place] [address] Care Team Providers Care Drawbench Operator Name Role Phone Dianne Johnson RN Unavailable [phone] Sanjeev Webster DO Primary Care Provider + Reason for Visit * Reason Onset Date Comments Holter Monitor 09/23/2023 * Imaging (Routine) - Closed Specialty Diagnoses / Procedures Referred By Contac t Referred To Contact Cardiology Diagnoses Bradycardia Procedures CLINIC - HOLTER MONITOR - ECG UP TO 48 HRS,COMPLETE Sania Gomez MD [facility] [address] [place] [address] Phone: tel: fax: Referral ID Status Reason Start Date Expiration Date Visits Re quested Visits Authorized [id number] Closed 09/15/2023 09/14/2024 1 1 Encounter Details Date Type Department Care Team (Late st Contact Info) Description 09/23/2023 11:45 AM CDT [facility]phone [facility] [address] [place] [address] Sania Gomez MD [facility] [address] [place] [phone] Holter Monitor Social History Tobacco Use Types Packs/Day Years [...] week 08/26/2022 How often do you attend [facility] or jain services? More than 4 times [...] Recorded Patient Health Questionnaire-2 Score 1 08/06/2023 [facility] of Occupat ional Health - Occupational Stress [...] documented in this encounter Progress Notes * Hong Kim Make Up Worker - 09/23/2023 3:22 PM CDT BG SHIPPED documented in this encounter Plan of Treatment Upcoming Encounters Date Type Department Care Team (Late st Contact Info) Description 04/14/2024 2:00 PM SALAD CHEF Office Visit [facility] Group Multispecialty Care - [facility] [address] [facility], [address] [place] [id number] Julio Pulido MD [address] [place] [address] documented as of this encounter Goals Goal Patient Goal Type Associated Problems Recent Progress Patient-Stated? Author Health - patient able to perform ADLs independently General On track(2023 9:49 AM CDT) No Dianne Johnson, RN Note: 12/17/23: Patient stated she is independent with ASL's. Establish Plan for Symptom Monitoring-CHF General On track(2023 11:36 AM SALAD CHEF) Dianne Corona RN Note: Patient will recognize [...] Symptom Monitoring-COPD General On track(2023 11:36 AM SALAD CHEF) Dianne Corona RN Note: Patient will recognize [...] Symptom Monitoring-DM General On track(2023 4:33 PM SALAD CHEF) Dianne Corona RN Note: Patient will manage [...] Symptom Monitoring-HTN General On track(2023 4:33 PM SALAD CHEF) Dianne Corona, RN Note: Patient will monitor B/P several times per week , record readings and report to physician or CC if B/P consistently >130/80 Take your medications as prescribed. Follow up with your provider as scheduled. Take your blood pressure at least several times a week if able. documented as of this encounter Procedures Procedure Name Priority Date/Time Associated Diagnosis Comments XTRNL ECG REC<48 HRS RECORDING SCAN A/R R&I Routine 10/14/2023 4:30 PM CDT Bradycardia documented in this encounter Results * CLINIC - HOLTER MONITOR - ECG UP TO 48 HRS,COMPLETE (10/14/2023 4:30 PM CDT) Narrative [facility] - 10/14/2023 4:30 PM CDT [address] [place], [place] ??[address] Phone: ?? Fax: ?? WAREHOUSE PULLER REPORT PATIENT NAME: ??Radha Huynh : ??1945 DATE OF TESTIN10/05/2023-10/07/2023 TYPE OF MONITOR: Mobile Cardiac Telemetry (MCT) PCP: ??Sanjeev Webster DO INTERPRETING KOSHER DIETARY SERVICE MANAGER: Sania Gomez MD INDICATION: ??A. fib FINDINGS: Radha Huynh underwent monitoring for a total of 1 days 13 hours 19 minutes. Baseline Rhythm * The baseline rhythm was Atrial Fibrillation/Flutter CVR with heart rates ranged between 53 and 120 beats per minute, with average rate of 71 beats per minute. A-V Conduction * No Second Degree AV Block Type II. * No Third Degree AV Block. * No Pauses. Supraventricular Arrhythmia * There were 3,983 Supraventricular Ectopic beats with a burden of 2%. * No Supraventricular Tachycardia. Ventricular Arrhythmia * There were 207 Ventricular Ectopic beats with a burden of <1%. * No Ventricular Tachycardia. Atrial Fibrillation * Atrial Fibrillation - the longest episode was 18m 00.0s on 10/06 00:50, the fastest episode was 131 BPM on 10/05 06:34, and the slowest episode was 55 BPM on 10/06 06:45. Patient Triggered Events * 1 patient triggered events, no symptoms were specified. Episode corresponded to atrial fibrillation with controlled ventricular rates. us Sania Gomez MD PROCEDURES Final Resul t [facility] documented in this encounter Visit Diagnoses Diagnosis Bradycardia Other specified cardiac dysrhythmias documented in this encounter Additional Health Concerns Assessment Noted Time PHQ-9 Depression Total Score: 13 12/11/ 023 3:56 PM CDT documented as of this encounter Care Teams Drawbench Operator Relationship Specialty Start Date End Date Sanjeev Webster DO [address] [place] [phone] PCP - General FAMILY PRACTICE 09/25/20 Dianne Johnson, RN [address] [place] [address] Laborer Car Barn (Ambulatory) REGISTERED NURSE 08/14/20 documented as of this encounter
--- OUTSIDE RECORDS SUMMARY | 2024-03-15 00:51 | XMS_ITS | Encounter Summary ---
Author Organization [facility] Address [facility] [place] [address] [place] [address] Care Team Providers Care Rental Sales Associate Name Role Phone Dianne Johnson RN Unavailable [phone] Sanjeev Webster DO Primary Care Provider + Reason for Visit * Reason Comments Anticoagulation Encounter Details Date Type Department Care Team (Late st Contact Info) Description 09/22/2023 11:20 AM CDT Allied Health/Nurse Visit [facility] Family & Internal Medicine [id number] [place] [address] Sanjeev Webster DO [facility] [place] [address] Anticoagulation Social History Tobacco Use [...] often do you attend chur ch or protestant services? More than 4 times [...] Recorded Patient Health Questionnaire-2 Score 1 08/06/2023 [facility] of Occupat ional Health [...] st Contact Info) Description 04/14/2024 2:00 PM AIR PURIFIER SERVICER Office Visit [facility] Medical Group Multispecialty Care - [facility] [address] [facility], [address] [place] [phone] Julio Pulido MD [address] [place] [address] documented as of this encounter Goals Goal Patient Goal Type Associated Problems Recent Progress Patient-Stated? Author Health - patient able to perform ADLs independently General On track(2023 9:49 AM CDT) Dianne Corona RN Note: 12/17/23: Patient stated she is independent with ASL's. Establish Plan for Symptom Monitoring-CHF General On track(2023 11:36 AM AIR PURIFIER SERVICER) Dianne Corona RN Note: Patient will recognize [...] Symptom Monitoring-COPD General On track(2023 11:36 AM AIR PURIFIER SERVICER) Dianne Corona RN Note: Patient will recognize [...] Symptom Monitoring-DM General On track(2023 4:33 PM AIR PURIFIER SERVICER) Dianne Corona RN Note: Patient will manage [...] Symptom Monitoring-HTN General On track(2023 4:33 PM AIR PURIFIER SERVICER) Dianne Corona RN Note: Patient will monitor [...] Associated Diagnosis Comments PROTHROMBIN TIME, VENOUS Routine 09/22/2023 11:39 AM CDT Chronic anticoagulation COLLECT.CAPILLARY (FNGR,HEEL,EAR) Routine 09/22/2023 11:38 AM CDT Chronic anticoagulation COLLECTION VENOUS BLOOD VENIPUNCTURE Routine 09/22/2023 11:38 AM CDT Chronic anticoagulation PROTHROMBIN TIME, FINGERSTICK Routine 09/22/2023 Chronic anticoagulation documented in this encounter Results * (ABNORMAL) PROTIME/INR, VENOUS (09/22/2023 11:39 AM CDT) PROTIME 45.3(H) 9.3 - 11.6 SEC 09/22/2023 3:28 PM CDT [facility] Comment:RESULT VERIFIED INR 4.8(HH) 0.9 - 1.1 09/22/2023 3:28 PM CDT [facility] Comment: TREATMENT OR PROPHYLAXIS AGAINST: ?? THERAPEUTIC RANGE (INR): ?VENOUS THROMBOSIS ? 2.0-3.0 ?PULMONARY EMBOLUS ? 2.0-3.0 ?? MECHANICAL PROSTHETIC VALVES ? 2.5-3.5 RESULT VERIFIED CRITICAL VALUE VERIFIED, CALLED TO, AND READ BACK BY: YEHUDA WOLF [facility] AT 1527 7.16.24 ABZ 09/22/2023 11:3 9 AM CDT Sanjeev Webster DO LABORATORY Final Re sult Performing Organization Address [facility] Co de Phone Number [facility] [address] [place] [address], [place] [phone] * (ABNORMAL) PROTIME/INR, FINGERSTICK (09/22/2023) INR WHOLE BLOOD 5.20 [facility] Comment:venous drawn 09/22/2023 Sanjeev Webster DO LABORATORY Final Re sult [facility] [address] [place] [address], documented in this encounter Visit Diagnoses Diagnosis Chronic anticoagulation- Primary Encounter for long-term (current) use of anticoagulants documented in this encounter Additional Health Concerns Assessment Noted Time PHQ-9 Depression Total Score: 13 023 3:56 PM CDT documented as of this encounter Care Teams Rental Sales Associate Relationship Specialty Start Date End Date Sanjeev Webster DO [address] [place] [address] PCP - General FAMILY PRACTICE 09/25/20 Dianne Johnson, RN [address] [place], [place] [address] Dental Service Chief (Ambulatory) REGISTERED NURSE 08/14/20 documented as of this encounter
--- OUTSIDE RECORDS SUMMARY | 2024-03-15 00:51 | XMS_ITS | Encounter Summary ---
Author Organization [facility] Address [facility]. [place], [place] [address] [place] [id number] Care Team Providers Care Drafter Apprentice Name Role Phone Dianne Johnson RN Unavailable [phone] Sanjeev Webster DO Primary Care Provider + Reason for Referral * Imaging (Routine) - Authorized Specialty Diagnoses / Procedures Referred By Ian malagon Referred To Contact RADIOLOGY Diagnoses Claudication (CMS/HCC) Procedures USV ART DUPLEX+RICHARD LOW HILDA Sanjeev Webster DO [address] [place] [address] Phone: tel: fax: [place] [address] Phone: tel: fax: Referral ID Status Reason Start Date Expiration Date V isits Requested Visits Authorized [id number] Authorized 10/08/2023 10/07/2024 1 1 Reason for Visit * Reason Comments Medication Management The patient presen ts for a 2 month follow up. The patient states she is having leg pains but she is walking more. The patient states she was having leg pains before she was on the statin medication. Encounter Details Date Type Department Care Team (Late st Contact Info) Description 10/08/2023 11:20 AM CDT Office Visit [facility] Family & Internal Medicine [address] [phone] Abiodun Webstermaribel Leon [address] [place] [phone] Medication Management (The patient presents for a 2 month follow up. The patient states she is having leg pains but she is walking more. The patient states she was having leg pains before she was on the statin medication. ) Social History Tobacco Use Types Packs/Day [...] often do you attend chur ch or episcopal services? More than 4 times per year 08/26/2022 Do you belong to any clubs o r organizations such as protestant groups, unions, fraternal or athletic groups, or [...] Recorded Patient Health Questionnaire-2 Score 1 08/06/2023 [facility] - Occupational Stress Questionnaire Answer Date [...] Sign Reading Time Taken Comments Blood Pressure 128/74 10/08/2023 11:37 AM CDT Pulse 86 10/08/2023 11:37 AM CDT Temperature 36.3 ??C (97.3 ??F) 10/08/2023 1 1:37 AM CDT Respiratory Rate 16 10/08/2023 11:3 7 AM CDT Oxygen Saturation 98% 10/08/2023 11: 37 AM CDT Inhaled Oxygen Concentration - - Weight 82.4 kg (181 lb 11.2 oz) 024 11:37 AM CDT Height 165.1 cm (5' 5 ) 10/08/2023 11:3 7 AM CDT Body Mass Index 30.24 10/08/2023 11:37 AM CDT documented in this encounter Functional [...] Progress Notes * Sanjeev Webster, DO - 10/08/2023 11:20 AM CDT Images from the original note were not included. GENERAL OFFICE VISIT Encounter Date: 10/08/2023 Chief Complaint: 78-year-old female presents for Medication Management (The patient presents for a 2 month follow up. The patient states she is having leg pains but she is walking more. The patient states she was having leg pains before she was on the statin medication. ) HPI: Pt presents for follow-up from last OV, which was a TCM for A Fib with RVR. Pt has seen cardiology Dr. Gomez since last OV, who ordered an event monitor and continued pt's warfarin and metoprolol as prescribed. Pt just sent back event monitor today; she may have had some irritation from the adhesive with this, so she did not complete it. Pat had recent PT/INR. No visits with results within 1 Day(s) from this visit. Latest known visit with results is: Allied Health/Nurse Visit on 10/05/2023 Component Date Value Ref Range Status INR WHOLE BLOOD 10/05/2023 2.60 Final Pt is complaining of leg pain. We held her statin, which did not notably help. Pt states she had them before a statin today. She notes it is more of a problem when she sleeps, although it can be whenstanding or walking. Walking does make it worse. Pt has previous diagnosis of PAD, although this has been stable in recent years. Pt is needing a recheck of her CBC in the near future. Pt was referred to hematology at pt's last hospitalization. No associated symptoms. ROS: Review of Systems Constitutional: Negative for fever. Respiratory: Negative for shortness of breath. Cardiovascular: Positive for claudication. See HPI Gastrointestinal: Negative for abdominal pain. Medications: Current Outpatient Medications on File Prior to [...] TABLET BY MOUTH NIGHTLY NEEDED FOR SLEEP Blood Glucose Monitoring Suppl (ONE TOUCH ULTRA [...] twice daily or as needed for constipation. ferrous sulfate, 65 mg elemental, 325 (65 [...] capsule (150 mg total) by mouth daily. Lancets (ONETOUCH ULTRASOFT) lancets 1 each by Other route as needed. Use as instructed methIMAzole (TAPAZOLE) 5 MG tablet Take 1 tablet (5 mg total) by mouth daily. metoprolol succinate ER (TOPROL-XL) 25 MG 24 hr tablet Take 0.5 tablets (12.5 mg total) by mouth daily. omeprazole (PRILOSEC) [...] tablet (5 mg total) by mouth daily. warfarin (COUMADIN) 6 MG tablet Take 1 tablet (6 mg total) by mouth daily. No current facility-administered medications on file prior to visit. Review of patient's allergies indicates: Allergen Reactions Atorvastatin Leg Pain Leg pain/cramps. Resolved after stopping. Tape Contact Dermatitis Benzalkonium Other (see comment) Cortisone Unknown Gramicidin Other (see comment) Hydrocortisone Other (see comment) Rosuvastatin Leg Pain Cramping in legs Bacitracin Other (see comment) and Rash Neomycin Other (see comment) and Rash Polymyxin B Other (see comment) and Rash Patient Active Problem List Diagnosis Abnormal stress test Chronic anticoagulation Coronary artery disease involving klawock coronary artery of klawock heart without angina pectoris H/O mechanical aortic valve replacement Hypertensive heart disease with congestive heart failure ([facility]) LBBB (left bundle branch block) Myopathy VAZQUEZ (obstructive sleep apnea) Paroxysmal atrial flutter ([facility]) Benign hypertension with CKD (chronic kidney disease) stage III ([facility]) Memory deficits Hearing deficit, bilateral History of cataract extraction, unspecified laterality Vitamin D deficiency Hypercalcemia Chronic frontal sinusitis Constipation, unspecified constipation type Chronic bilateral low back pain without sciatica Iron deficiency anemia, unspecified iron deficiency anemia type Disorder of skin of trunk Anemia Body mass index (BMI) 31.0-31.9, adult 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[facility]) Benign hypertension with stage 3b chronic kidney disease ([facility]) Cobalamin deficiency Compression fracture of thoracic vertebra ([facility]) Depression Diabetic polyneuropathy ([facility]) Disorder of rotator cuff Diverticular disease Dysphagia Elevated troponin Gastroesophageal reflux disease without esophagitis Hyperlipidemia, unspecified hyperlipidemia type Vascular dementia ([facility]) Unknown and unspecified causes of morbidity Syncope, unspecified syncope type Wrist joint pain Requires lifelong warfarin therapy Hyperparathyroidism ([facility]) Presence of prosthetic heart valve Plantar fascial fibromatosis Peripheral neuropathy Parathyroid adenoma Polymyalgia rheumatica ([facility]) Osteoporosis Numbness Muscle cramps Closed stable burst fracture of sixth thoracic vertebra, initial encounter ([facility]) Chest pain Contusion of scalp Knee pain Localized, primary osteoarthritis Osteoarthritis of knee Traumatic closed displaced fracture of distal end of radius Shoulder joint pain Hyperlipidemia associated with type 2 diabetes mellitus ([facility]) Hematoma Anxiety Diastolic heart failure ([facility]) Internal hemorrhoids Leukoencephalopathy Major depression single episode, in partial remission ([facility] Metacarpal bone fracture Mitral valve disorder Peripheral arterial occlusive disease ([facility] Primary osteoarthritis involving multiple joints Vision loss COPD (chronic obstructive pulmonary disease) ([facility]) Diarrhea Drug-induced constipation H/O mechanical aortic valve replacement Age-related osteoporosis with current pathological fracture Care Management Physical deconditioning Chronic heart failure with preserved ejection fraction (HFpEF) ([facility]) Paroxysmal atrial fibrillation ([facility]) Hypertension associated with type 2 diabetes mellitus ([facility]) Encounter for prophylactic measures, unspecified Graves' disease Cirrhosis of liver without ascites, unspecified hepatic cirrhosis type ([facility]) Stage 3b chronic kidney disease ([facility]) OLIVE (acute kidney injury) ([facility]) Heart failure with mildly reduced ejection fraction (HFmrEF) ([facility]) Hyperthyroidism 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 Anxiety Atrial fibrillation with rapid ventricular response ([facility]) 08/22/2020 Atrial flutter ([facility]) Cataract Chronic anticoagulation due to mechanical heart valve Chronic pain Diabetes mellitus ([facility]) H/O mechanical aortic valve replacement 2003 Hypertension [...] 10 min Stress: Stress Concern Present (08/26/2022) Citizen Of [place] [facility] - Occupational Stress Questionnaire Feeling of Stress : To some extent Social Connections: Moderately Isolated (08/26/2022) Social Connection and Isolation Panel [NHANES] Frequency of Communication with Friends and Family: Three times a week Frequency of Social Gatherings with Friends and Family: Three times a week Attends Confucianist Services: More than 4 times per year [...] partnership data on file Objective: Filed Vitals: 10/08/23 1137 BP: 128/74 Pulse: 86 Resp: 16 Temp: 97.3 ??F (36.3 ??C) TempSrc: Skin SpO2: 98% Weight: 82.4 kg (181 lb 11.2 oz) Height: 1.651 m (5' 5 ) [...] baseline. Psychiatric: Mood and Affect: Mood normal. Assessment & Plan: Radha was seen today for medication management. Diagnoses and all orders for this visit: Atrial fibrillation with RVR ([facility]/HCC) Claudication ([facility]/HCC) - USV ART DUPLEX+RICHARD LOW HILDA; Future Anemia, unspecified type - CBC W/DIFF AUTOMATED; Future - VITAMIN B-12; Future - FOLIC ACID SERUM; Future - RETICULOCYTE CT, AUTO; Future - HAPTOGLOBIN, QUANT; Future - LDH, LACTATE DEHYDROGENASE; Future - FERRITIN; Future - IRON SAT PANEL (IRON,IBC,%SAT); Future - SOLUBLE TRANSFERRIN RECEPTOR; Future FPC (current) use of anticoagulants - PROTIME/INR, VENOUS; Future Other chronic pain - HYDROcodone-acetaminophen (NORCO) 5-325 MG tablet; Take 1-2 tablets by mouth every 6 (six) hours as needed for Pain. Indications: Chronic Pain Discussion & Summary: For A Fib, continue f/u with cardiology and continue meds as prescribed; rhythm normal on auscultation today with appropriate rate. For anemia, will recheck labs next week with her PT/INR; continue warfarin as prescribed. F/u with hematology as well. For leg pain, will obtain RICHARD but will also clarify pt's gabapentin dose; ensuretaking 300 mg TID. Can also consider B Vitamin complex as well. Will refill chronic pain medicine today; stable on this and uses sparingly. Will have pt f/u in 2 months or sooner if needed. Pt v/u. I personally spent a total of 40 minutes on the day of the encounter. This includes [id number] and ztc-[id number]-face time I provided on the day of the encounter & excludes time spent performing separately reportable services. Sanjeev Webster DO documented in this encounter Plan of Treatment Upcoming Encounters Date Type Department Care Team (Late st Contact Info) Description 04/14/2024 2:00 PM PRODUCT DESIGN ENGINEER Office Visit [facility] [address] [facility], [address] [place] [phone] Julio Pulido [facility] [address] [facility] [place] [address] Scheduled Orders Name Type Priority Associated Diagnoses Orde r Schedule USV ART DUPLEX+RICHARD LOW HILDA US VASC Routine Claudication ([facility]) Expected: 10/08/2023, Expires: 10/07/2024 documented as of this encounter Goals Goal Patient Goal Type Associated Problems Recent Progress Patient-Stated? Author Health - patient able to perform ADLs independently General On track(2023 9:49 AM CDT) Dianne Corona, RN Note: 12/17/23: Patient stated she is independent with ASL's. Establish Plan for Symptom Monitoring-CHF General On track(2023 11:36 AM PRODUCT DESIGN ENGINEER) Dianne Corona, RN Note: Patient will recognize [...] Symptom Monitoring-COPD General On track(2023 11:36 AM PRODUCT DESIGN ENGINEER) Dianne Corona, RN Note: Patient will recognize [...] Symptom Monitoring-DM General On track(2023 4:33 PM PRODUCT DESIGN ENGINEER) Dianne Corona RN Note: Patient will [...] Symptom Monitoring-HTN General On track(2023 4:33 PM PRODUCT DESIGN ENGINEER) Dianne Corona, DALE Note: Patient will monitor B/P several times per week , record readings and report to physician or CC if B/P consistently >130/80 Take your medications as prescribed. Follow up with your provider as scheduled. Take your blood pressure at least several times a week if able. documented as of this encounter Results * IRON SAT PANEL (IRON,IBC,%SAT) (10/19/2023 12:57 PM CDT) Pathologist [facility] IRON 70 50 - 170 MCG/DL 10/19/2023 8:12 PM CDT [facility] IRON BINDING CAPACITY 287 250 - 450 MCG/DL 10/19/2023 8:12 PM CDT [facility] IRON SATURATION 24 % 8:12 PM CDT [facility] Comment:REFERENCE RANGE NOT ESTABLISHED 10/19/2023 12:5 7 PM CDT Sanjeev Webster DO LABORATORY Final Re sult Performing Organization Address [facility]/ZIP Co de Phone Number [facility] [address] [place] [address], [place] [phone] * FERRITIN (10/19/2023 12:57 PM CDT) FERRITIN 40.0 8 - 252 NG/ML 10/19/2023 8:12 PM CDT [facility] 10/19/2023 12:5 7 PM CDT Sanjeev Webster DO LABORATORY Final Re sult Performing Organization Address [facility] Co de Phone Number [place] [address] [place] [address], [place] [phone] * (ABNORMAL) LDH, LACTATE DEHYDROGENASE (10/19/2023 12:57 PM CDT) LDH 285(H) 84 - 246 UNITS/L 10/19/2023 9:16 PM CDT [facility] 10/19/2023 12:5 7 PM CDT Sanjeev Webster DO LABORATORY Final Re sult Performing Organization Address City/[facility]/ZIP Co de Phone Number [facility] [address] [place] [address], [place] [phone] * (ABNORMAL) HAPTOGLOBIN, QUANT (10/19/2023 12:57 PM CDT) HAPTOGLOBIN <7.8(L) 30.0 - 200.0 MG/DL 10/19/2023 9:34 PM CDT [facility] 10/19/2023 12:5 7 PM CDT Sanjeev Webster DO LABORATORY Final Re sult Performing Organization Address [facility]/ZIP Co de Phone Number [facility] [address] [place] [address], [place] [phone] * (ABNORMAL) RETICULOCYTE CT, AUTO (10/19/2023 12:57 PM CDT) RETICULOCYTE COUNT 2.5(H) 0.6 - 2.3 % 10/19/2023 9:01 PM CDT [facility] ABSOLUTE RETICULOCYTE 0.08 0.02 - 0.10 x10'6/uL 10/19/2023 9:01 PM CDT [facility] IMMATURE RETIC FRACTION 26.4(H) 3.0 - 15.9 % 10/19/2023 9:01 PM CDT [facility] RETIC HGB 30.9 28.0 - 35.0 PG 10/19/2023 9:01 PM CDT [facility] 10/19/2023 12:5 7 PM CDT Sanjeev Webster DO LABORATORY Final Re sult Performing Organization Address [facility] Co de Phone Number [facility] [address] [place] [address], [phone] * FOLIC ACID SERUM (10/19/2023 12:57 PM CDT) FOLATE >20.0 8.6 - 58.9 NG/ML 10/20/2023 10:23 AM CDT [facility] 10/19/2023 12:5 7 PM CDT Sanjeev Webster DO LABORATORY Final Re sult Performing Organization Address City/[facility]/ZIP Co de Phone Number [facility] [address] [place] [address], * (ABNORMAL) VITAMIN B-12 (10/19/2023 12:57 PM CDT) Pathologist [facility] VITAMIN B12 S/P/B 988(H) 193 - 986 PG/ML 10/19/2023 8:12 PM CDT [facility] 10/19/2023 12:5 7 PM CDT Sanjeev Webster DO LABORATORY Final Re sult Performing Organization Address [facility]/State/ZIP Co de Phone Number [facility] [address] [place] [address], * (ABNORMAL) CBC W/DIFF AUTOMATED (10/19/2023 12:57 PM CDT) [facility] WBC 5.17 4.00 - 10.80 x10'3/uL 10/19/2023 8:20 PM CDT [facility] RBC 3.28(L) 4.10 - 5.40 x10'6/uL 10/19/2023 8:20 PM CDT [facility] HGB 10.1(L) 12.0 - 16.0 G/DL 10/19/2023 8:20 PM CDT [facility] HCT 33.9(L) 36.0 - 47.0 % 10/19/2023 8:20 PM CDT [facility] MCV 103.4(H) 78.0 - 100.0 FL 10/19/2023 8:20 PM CDT [facility] MCH 30.8 27.0 - 31.0 PG 10/19/2023 8:20 PM CDT [facility] MCHC 29.8(L) 33.0 - 36.0 G/DL 10/19/2023 8:20 PM CDT [facility] RDW 18.4(H) 11.5 - 14.5 % 10/19/2023 8:20 PM CDT [facility] PLT 255 150 - 350 x10'3/uL 10/19/2023 8:20 PM CDT [facility] MPV 13.1(H) 7.4 - 10.4 FL 10/19/2023 8:20 PM CDT [facility] DIFFERENTIAL TYPE AUTOMATED DIFFERENTIAL 10/19/2023 8:21 PM CDT [facility] NEUTROPHILS % 64.2 % 10/19/2023 8:21 PM CDT [facility] LYMPHOCYTES % 16.8 % 10/19/2023 8:21 PM CDT [facility] MONOCYTES % 11.6 % 10/19/2023 8:21 PM CDT [facility] EOSINOPHILS % 6.4 % 10/19/2023 8:21 PM CDT [facility] BASOPHILS % 1.0 % 10/19/2023 8:21 PM CDT [facility] IMMATURE GRANS % 0.0 % 10/19/2023 8:21 PM CDT [facility] ABS. NEUTROPHILS 3.32 1.60 - 8.30 x10'3/uL 10/19/2023 8:21 PM CDT [facility] ABS. LYMPHOCYTES 0.87 0.80 - 4.70 x10'3/uL 10/19/2023 8:21 PM CDT [facility] ABS. MONOCYTES 0.60 0.00 - 1.50 x10'3/uL 10/19/2023 8:21 PM CDT [facility] ABS. EOSINOPHILS 0.33 0.00 - 0.40 x10'3/uL 10/19/2023 8:21 PM CDT [facility] ABS. BASOPHILS 0.05 0.00 - 0.20 x10'3/uL 10/19/2023 8:21 PM CDT [facility] ABS. IMMATURE GRANULOCYTES 0.00 0.00 - 0.03 x10'3/uL 10/19/2023 8:21 PM CDT [facility] 10/19/2023 12:5 7 PM CDT Sanjeev Webster DO LABORATORY Final Re sult Performing Organization Address [facility]/ZIP Co de Phone Number [facility] [address] [place] [address], * (ABNORMAL) PROTIME/INR, VENOUS (10/19/2023 12:57 PM CDT) PROTIME 19.4(H) 9.3 - 11.6 SEC 10/19/2023 7:57 PM CDT [facility] INR 1.9(H) 0.9 - 1.1 10/19/2023 7:57 PM CDT [facility] Comment: TREATMENT OR PROPHYLAXIS AGAINST: ?? THERAPEUTIC RANGE (INR): ?VENOUS THROMBOSIS ? 2.0-3.0 ?PULMONARY EMBOLUS ? 2.0-3.0 ?? MECHANICAL PROSTHETIC VALVES ? 2.5-3.5 10/19/2023 12:5 7 PM CDT Sanjeev Webster DO LABORATORY Final Re sult Performing Organization Address [facility]/ZIP Co de Phone Number [facility] [address] [place] [address], [place] [phone] documented in this encounter Visit Diagnoses Diagnosis Atrial fibrillation with RVR ([facility]/HCC)- Primary Atrial fibrillation Claudication ([facility]) Peripheral vascular disease, unspecified Anemia, unspecified type long term care social worker (current) use of anticoagulants Long-term (current) use of anticoagulants Other chronic pain documented in this encounter Additional Health Concerns Assessment Noted Time PHQ-9 Depression Total Score: 13 023 3:56 PM CDT documented as of this encounter Care Teams Drafter Apprentice Relationship Specialty Start Date End Date Sanjeev Webster DO [address] [place] [id number] PCP - General FAMILY PRACTICE 09/25/20 [place] [address] [place] [phone] [employer] Screen Print[employer] Racker (Ambulatory) REGISTERED NURSE 08/14/20 documented as of this encounter
--- OUTSIDE RECORDS SUMMARY | 2024-03-15 00:51 | XMS_ITS | Encounter Summary ---
Author Organization [facility] Address [facility] [place] [address] [place] [address] Care Team Providers Care Pharmacy Intake Technician Name Role Phone Dianne Johnson RN Unavailable [phone] Sanjeev Webster DO Primary Care Provider + Reason for Visit * Reason Onset Date Comments Lab Results 09/18/2023 PT/INR results Encounter Details Date Type Department Care Team (Late st Contact Info) Description 09/18/2023 Telephone [facility] Family & Internal Medicine [facility] [address] [place] [address] Sanjeev Webster DO [address] [place] [address] Lab Results (PT/INR results ) Social History Tobacco Use Types Packs/Day [...] How often do you attend chur or latter day services? More than 4 times per year [...] Recorded Patient Health Questionnaire-2 Score 1 08/06/2023 [facility] - Occupational Stress Questionnaire Answer Date [...] Progress Notes * Gloria Patel MA - 09/18/2023 2:28 PM CDT 09/18/23: Called Izzy (patient daughter in law) back and explained Warfarin dosage change and schedule nurse visit to recheck INR on 09/28/23. Understands instructions, riaz augustin * Sanjeev Webster DO - 09/18/2023 1:20 PM CDT Have her do warfarin 6 mg of Thursday, Thursday, and Thursday. Then do warfarin 7 mg Thursday through . Continue this and recheck on 09/28/23. * Gloria Patel MA - 09/18/2023 1:15 PM CDT ----- Message from Dr. Sanjeev Webster sent at 09/18/2023 9:59 AM CDT ----- Warfarin is again supratherapeutic. Clarify current dose; we will need to change this given multiple elevated readings. Patient daughter in law Izzy Martinez was verbally informed of results stated patient is taking 7mg ofwarfarin daily. How would you like to proceed? /riaz augustin documented in this encounter Plan of Treatment Upcoming Encounters Date Type Department Care Team (Late st Contact Info) Description 04/14/2024 2:00 PM ANTIQUE FINISHER Office Visit [facility] Medical Group Multispecialty Care - [facility] 3 [facility], [address] [place] [address] Julio Pulido MD [address] [place] [address] documented as of this encounter Goals Goal Patient Goal Type Associated Problems Recent Progress Patient-Stated? Author Health - patient able to perform ADLs independently General On track(2023 9:49 AM CDT) Dianne Corona, RN Note: 12/17/23: Patient stated she is independent with ASL's. Establish Plan for Symptom Monitoring-CHF General On track(2023 11:36 AM ANTIQUE FINISHER) Dianne Corona, RN Note: Patient will recognize [...] Symptom Monitoring-COPD General On track(2023 11:36 AM ANTIQUE FINISHER) Dianne Corona, RN Note: Patient will recognize [...] Symptom Monitoring-DM General On track(2023 4:33 PM ANTIQUE FINISHER) Dianne Corona, RN Note: Patient will manage [...] Symptom Monitoring-HTN General On track(2023 4:33 PM ANTIQUE FINISHER) Dianne Corona, RN Note: Patient will monitor [...] documented as of this encounter Care Teams Pharmacy Intake Technician Relationship Specialty Start Date End Date Sanjeev Webster DO [address] [place] [id number] PCP - General FAMILY PRACTICE 09/25/20 Dianne Johnson, RN [address] [place] [address] Burlap Man (Ambulatory) REGISTERED NURSE 08/14/20 documented as of this encounter
--- OUTSIDE RECORDS SUMMARY | 2024-03-15 00:51 | XMS_ITS | Encounter Summary ---
Author Organization [facility] Address [facility]6 [facility]. [place], [place] [address] [place] [address] Care Team Providers Care Chainstitch Felled Seam Operator Name Role Phone Dianne Johnson RN Unavailable [phone] Sanjeev Webster DO Primary Care Provider + Reason for Visit * Reason Onset Date Comments Results 09/22/2023 Encounter Details Date Type Department Care Team (Late st Contact Info) Description 09/22/2023 Telephone [facility] Family & Internal Medicine [place] [id number] [place] [address] Sanjeev Webster DO [facility] [place] [address] Results Social History Tobacco Use [...] How often do you attend chur or zoroastrian services? More than 4 times [...] Recorded Patient Health Questionnaire-2 Score 1 08/06/2023 [facility] [...] place to sleep or slept in a detention (including now)? No 08/26/2022 Comments No Sex [...] Progress Notes * Yenifer Ingram MA - 09/22/2023 3:40 PM CDT Bebe with [facility] lab called and states the Protime is 45.3 and INR is 4.8. Critical values discussed with Camelia [place]. PCP is out of the office. Camelia advised holding warfarin tonight and [id number] qd for 1 week and recheck. Patient and izzy notified and patient scheduled. documented in this encounter Plan of Treatment Upcoming Encounters Date Type Department Care Team (Late st Contact Info) Description 04/14/2024 2:00 PM HOSPITAL NURSING ASSISTANT Office Visit [facility] Multispecialty Care - [facility] 3 [facility], [address] [place] [id number] Julio Pulido MD [address] [place] [address] documented as of this encounter Goals Goal Patient Goal Type Associated Problems Recent Progress Patient-Stated? Author Health - patient able to perform ADLs independently General On track(2023 9:49 AM CDT) No Dianne Johnson, DALE Note: 12/17/23: Patient stated she is independent with ASL's. Establish Plan for Symptom Monitoring-CHF General On track(2023 11:36 AM HOSPITAL NURSING ASSISTANT) Dianne Corona, RN Note: Patient will recognize [...] Symptom Monitoring-COPD General On track(2023 11:36 AM HOSPITAL NURSING ASSISTANT) Dianne Corona RN Note: Patient will [...] Symptom Monitoring-DM General On track(2023 4:33 PM HOSPITAL NURSING ASSISTANT) Dianne Corona RN Note: Patient will [...] Symptom Monitoring-HTN General On track(2023 4:33 PM HOSPITAL NURSING ASSISTANT) Dianne Corona RN Note: Patient will monitor [...] documented as of this encounter Care Teams Chainstitch Felled Seam Operator Relationship Specialty Start Date End Date Sanjeev Webster DO [address] [place] [id number] PCP - General FAMILY PRACTICE 09/25/20 Dianne Johnson, RN [address] [place] [address] Lens Examiner (Ambulatory) REGISTERED NURSE 08/14/20 documented as of this encounter
--- OUTSIDE RECORDS SUMMARY | 2024-03-15 00:51 | XMS_ITS | Encounter Summary ---
Author Organization [facility] Address [facility]6 [facility] [address] [place] [address] Care Team Providers Care Sales Negotiator Name Role Phone Dianne Johnson RN Unavailable [phone] Sanjeev Webster DO Primary Care Provider + Encounter Details Date Type Department Care Team (Latest Contact Info) Description 09/04/2023 Travel Social History Tobacco Use Types Packs/Day [...] Recorded Patient Health Questionnaire-2 Score 1 08/06/2023 [facility] Occup[facility] ional Health - Occupational [...] st Contact Info) Description 04/14/2024 2:00 PM PATIENT SITTER Office Visit [facility] Multispecialty Care - [facility] 3 [facility], [address] [place] [address] Julio Pulido MD 3 [place] [address] documented as of this encounter Goals Goal Patient Goal Type Associated Problems Recent Progress Patient-Stated? Author Health - patient able to perform ADLs independently General On track(2023 9:49 AM CDT) Dianne Corona RN Note: 12/17/23: Patient stated she is independent with ASL's. Establish Plan for Symptom Monitoring-CHF General On track(2023 11:36 AM PATIENT SITTER) Dianne Corona RN Note: Patient will recognize [...] Symptom Monitoring-COPD General On track(2023 11:36 AM PATIENT SITTER) Dianne Corona RN Note: Patient will recognize [...] Symptom Monitoring-DM General On track(2023 4:33 PM PATIENT SITTER) Dianne Corona RN Note: Patient will manage [...] Symptom Monitoring-HTN General On track(2023 4:33 PM PATIENT SITTER) Dianne Corona, RN Note: Patient will monitor [...] documented as of this encounter Care Teams Sales Negotiator Relationship Specialty Start Date End Date Sanjeev Webster DO [address] [place] [id number] PCP - General FAMILY PRACTICE 09/25/20 Dianne Johnson, RN [address] [place] [address] Kennel Staff Member (Ambulatory) REGISTERED NURSE 08/14/20 documented as of this encounter
--- OUTSIDE RECORDS SUMMARY | 2024-03-15 00:51 | XMS_ITS | Encounter Summary ---
Author Organization [facility] Address [facility] [place] [address] [place] [address] Care Team Providers Care Loss Prevention Coordinator Name Role Phone Dianne Johnson RN Unavailable [phone] Sanjeev Webster DO Primary Care Provider + Encounter Details Date Type Department Care Team (Latest Contact Info) Description 10/05/2023 Travel Social History Tobacco Use Types Packs/Day [...] How often do you attend chur or yazdanism services? More than 4 times per year 08/26/2022 Do you belong to any clubs o r organizations such as alevism groups, unions, fraternal or athletic groups, or [...] Recorded Patient Health Questionnaire-2 Score 1 08/06/2023 [facility] of Occupat [...] st Contact Info) Description 04/14/2024 2:00 PM VICE PRESIDENT [employer] Office Visit [facility] Multispecialty Care - [facility] 3 [facility], [address] [place] [address] Julio Pulido MD 3 [place] [address] documented as of this encounter Goals Goal Patient Goal Type Associated Problems Recent Progress Patient-Stated? Author Health - patient able to perform ADLs independently General On track(2023 9:49 AM CDT) Dianne Corona RN Note: 12/17/23: Patient stated she is independent with ASL's. Establish Plan for Symptom Monitoring-CHF General On track(2023 11:36 AM VICE PRESIDENT [employer]) Dianne Corona RN Note: Patient will recognize [...] Symptom Monitoring-COPD General On track(2023 11:36 AM VICE PRESIDENT [employer]) Dianne Corona RN Note: Patient will recognize [...] Symptom Monitoring-DM General On track(2023 4:33 PM VICE PRESIDENT [employer]) Dianne Corona RN Note: Patient will manage [...] Symptom Monitoring-HTN General On track(2023 4:33 PM VICE PRESIDENT [employer]) Dianne Corona, RN Note: Patient will monitor [...] documented as of this encounter Care Teams Loss Prevention Coordinator Relationship Specialty Start Date End Date Sanjeev Webster DO [address] [place] [phone] PCP - General FAMILY PRACTICE 09/25/20 Dianne Johnson, RN [address] [place] [address] Flotation Operator (Ambulatory) REGISTERED NURSE 08/14/20 documented as of this encounter
--- OUTSIDE RECORDS SUMMARY | 2024-03-15 00:51 | XMS_ITS | Encounter Summary ---
Author Organization [facility] Address [facility] [place] [address] [place] [address] Care Team Providers Care Ball Point Splitter Name Role Phone Casey Johnson RN Unavailable [phone] Sanjeev Webster DO Primary Care Provider + Reason for Visit * Reason Onset Date Comments Care Management 09/16/2023 Encounter Details Date Type Department Care Team (Late st Contact Info) Description 09/16/2023 Patient Outreach [facility] Family & Internal Medicine [address] [address] Casey Johnson, RN [address] [place] [address] Care Management Social History Tobacco [...] How often do you attend chur or methodist services? More than 4 times per year [...] Recorded Patient Health Questionnaire-2 Score 1 08/06/2023 [facility] of Occupat ional Health - Occupational [...] Progress Notes * Casey Johnson RN - 09/16/2023 3:19 PM CDT Chronic Care Management: Patient concerns or urgent matters that need addressed: Patient having leg cramps and aching in legs. C/O of stiffness, cramps and pain in hands. Hard to open hands on and off. Patient currently taking Simvastatin 10 mg daily. Occurs at night. The above message sent to PCP nursing team. Patient Status: Contacted patient to remind of lab work at PCP office tomorrow at 11:40 am and she is scheduled to see Dr.Peter Graham in [place] at 1:00 PM for left knee pain. Patient stated her knee continues to hurt and she is hoping he will give her a cortisone injection. Patient denies any issues with COPD or CHF exacerbation s/s at this time. Reports taking her medications as directed and Izzy fills her pill conference planner. A1C 6.5 on 08/06/23. Denies any issues of hyper/hypoglycemia at this time. Patient stated she received a call from blood doctor office and her appointment is scheduled for 10/23/23 at 1:00 PM. The office is sending her paper work in the mail. Patient wanting to know more about why she is being referred. Reviewed referral and it states anemia, low hemoglobin and low hematocrit. Educated patient about anemia and s/s. Stated she does get fatigued. Educated on hemoglobin and hematocrit. Patient verbalizes understanding. Patient is currently at her sister's house at this time. No further needs noted at this time. Encouraged to call at the onset of any changes. Patient verbalizes understanding. Plan of Care: quality control coordinator will continue to follow up [...] Future Appointments Date Time Provider Department Center 09/17/2023 11:40 AM MG ZIGGY MADSEN [facility] 09/21/2023 12:00 PM [facility] 10/08/2023 11:20 AM Sanjeev Webster DO [id number] 03/04/2024 1:00 PM Sania Gomez MD [facility] 04/14/2024 2:00 PM MD NALINI Gutierrez [facility] Quality care gaps: Health Maintenance Topic Date Due Annual Medicare Wellness Visit Never done Zoster Vaccines (3 of 3) 02/17/2024 (Originally 01/06/2023) RSV Immunization or 60+ Years (1 - 1-dose 60+ series) 02/17/2024 (Originally 2004) COVID-19 Vaccine ( - 2022-24 season) 2112 (Originally 11/07/2022) Hemoglobin A1C 02/06/2024 [...] test Chronic anticoagulation Coronary artery disease involving wilton coronary artery of wilton heart without angina pectoris H/O mechanical aortic valve replacement Hypertensive heart disease with congestive heart failure ([facility]) LBBB (left bundle branch block) Myopathy VAZQUEZ (obstructive sleep apnea) Paroxysmal atrial flutter ([facility]) Benign hypertension with CKD (chronic kidney disease) stage III ([facility]) Memory deficits Hearing deficit, bilateral History of cataract extraction, unspecified laterality Vitamin D deficiency Hypercalcemia Chronic frontal sinusitis Constipation, unspecified constipation type Chronic bilateral low back pain without sciatica Iron deficiency anemia, unspecified iron deficiency anemia type Disorder of skin of trunk Anemia Body mass index (BMI) 31.0-31.9, adult 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[facility]) Benign hypertension with stage 3b chronic kidney disease ([facility]) Cobalamin deficiency Compression fracture of thoracic vertebra ([facility]) Depression Diabetic polyneuropathy ([facility]) Disorder of rotator cuff Diverticular disease Dysphagia Elevated troponin Gastroesophageal reflux disease without esophagitis Hyperlipidemia, unspecified hyperlipidemia type Vascular dementia ([facility]) Unknown and unspecified causes of morbidity Syncope, unspecified syncope type Wrist joint pain Requires lifelong warfarin therapy Hyperparathyroidism ([facility]) Presence of prosthetic heart valve Plantar fascial fibromatosis Peripheral neuropathy Parathyroid adenoma Polymyalgia rheumatica ([facility]) Osteoporosis Numbness Muscle cramps Closed stable burst fracture of sixth thoracic vertebra, initial encounter ([facility]) Chest pain Contusion of scalp Knee pain Localized, primary osteoarthritis Osteoarthritis of knee Traumatic closed displaced fracture of distal end of radius Shoulder joint pain Hyperlipidemia associated with type 2 diabetes mellitus ([facility]) Hematoma Anxiety Diastolic heart failure ([facility]) Internal hemorrhoids Leukoencephalopathy Major depression single episode, in partial remission ([facility]) Metacarpal bone fracture Mitral valve disorder Peripheral arterial occlusive disease ([facility]) Primary osteoarthritis involving multiple joints Vision loss COPD (chronic obstructive pulmonary disease) ([facility]) Diarrhea Drug-induced constipation H/O mechanical aortic valve replacement Age-related osteoporosis with current pathological fracture Care Management Physical deconditioning Chronic heart failure with preserved ejection fraction (HFpEF) ([facility]) Paroxysmal atrial fibrillation ([facility]) Hypertension associated with type 2 diabetes mellitus ([facility]) Encounter for prophylactic measures, unspecified Graves' disease Cirrhosis of liver without ascites, unspecified hepatic cirrhosis type ([facility]) Stage 3b chronic kidney disease ([facility]) OLIVE (acute kidney injury) ([facility]) Heart failure with mildly reduced ejection fraction (HFmrEF) ([facility]) Hyperthyroidism Medications: Current Outpatient Medications Medication Sig [...] MOUTH NIGHTLY NEEDED FOR SLEEP 15tablet 0 Blood Glucose Monitoring Suppl (ONE TOUCH ULTRA [...] twice daily or as needed for constipation. (Patient not taking: Reported on 09/04/2023) 30 capsule 0 ferrous sulfate, 65 mg [...] total) by mouth daily. 30 tablet 1 No current facility-administered medications for this visit. Chronic Care Management- Time Spent with Patient Time spent with patient (minutes): 15 Time spent performing chart review (minutes): 6 Total time (minutes): 21 CASEY JOHNSON RN I reviewed the patient's status and education provided by CASEY JOHNSON RN. I agree with the findings and recommendations made. Cosigned by Sanjeev Webster DO at 09/17/2023 1:12 PM CDT documented in this encounter Plan of Treatment Upcoming Encounters Date Type Department Care Team (Late st Contact Info) Description 04/14/2024 2:00 PM SENIOR BIOSTATISTICIAN Office Visit [facility]ty Care - [facility] 3 [facility], [address] [place] [address] Julio Pulido MD [address] [place] [address] documented as of this encounter Goals Goal Patient Goal Type Associated Problems Recent Progress Patient-Stated? Author Health - patient able to perform ADLs independently General On track(2023 9:49 AM CDT) Casey Corona RN Note: 12/17/23: Patient stated she is independent with ASL's. Establish Plan for Symptom Monitoring-CHF General On track(2023 11:36 AM SENIOR BIOSTATISTICIAN) Casey Corona RN Note: Patient will recognize [...] Symptom Monitoring-COPD General On track(2023 11:36 AM SENIOR BIOSTATISTICIAN) Casey Corona RN Note: Patient will recognize [...] Symptom Monitoring-DM General On track(2023 4:33 PM SENIOR BIOSTATISTICIAN) Casey Corona RN Note: Patient will manage [...] Symptom Monitoring-HTN General On track(2023 4:33 PM SENIOR BIOSTATISTICIAN) Casey Corona RN Note: Patient will monitor [...] Chronic obstructive pulmonary disease, unspecified COPD type ([facility])- Primary Chronic heart failure with preserved ejection fraction (HFpEF) ([facility]) Type 2 diabetes mellitus with stage 3b chronic kidney disease, without long-term current use of insulin ([facility]) documented in this encounter Additional Health Concerns Assessment Noted Time PHQ-9 Depression Total Score: 13 023 3:56 PM CDT documented as of this encounter Care Teams Ball Point Splitter Relationship Specialty Start Date End Date Sanjeev Webster DO [address] [place] [id number] PCP - General FAMILY PRACTICE 09/25/20 Casey Johnson, RN [address] [place] [address] Case Maker (Ambulatory) REGISTERED NURSE 08/14/20 documented as of this encounter
--- OUTSIDE RECORDS SUMMARY | 2024-03-15 00:51 | XMS_ITS | Encounter Summary ---
Author Organization [facility] Address [facility] [place] [address] [place] [address] Care Team Providers Care Internal Combustion Engine Assembler Name Role Phone Dianne Johnson RN Unavailable [phone] Sanjeev Webster DO Primary Care Provider + Reason for Referral * Consultation (Routine) - Authorized Specialty Diagnoses / Procedures Referred By Ian t Referred To Contact HEMATOLOGY/ONCOLOGY Diagnoses Anemia, unspecified type Low hemoglobin and low hematocrit Procedures OFFICE/OUTPATIENT NEW LOW MDM 30-44 MINUTES OFFICE/OUTPT VISIT,NEW,LEVL IV OFFICE/OUTPT VISIT,NEW,LEVL V OFFICE/OUTPT VISIT,EST,LEVL III OFFICE/OUTPT VISIT,EST,LEVL IV OFFICE/OUTPT VISIT,EST,LEVL V Sanjeev Webster DO [address] [place] [address] Phone: tel: fax: [facility] [address] [address] Phone: tel: fax: Referral ID Status Reason Start Date Expiration Date Visits Requested Visits Authorized [id number] Authorized Specialty Services 09/09/2023 04/08/2024 6 6 Reason for Visit * Reason Onset Date Comments Results 09/03/2023 Encounter Details Date Type Department Care Team (Late st Contact Info) Description 09/03/2023 Telephone [facility] Medical Group Family & Internal Medicine [facility] [address] [place] [address] Sanjeev Webster DO [address] [place] [address] Results Social History Tobacco Use Types Packs/Day [...] often do you attend chur ch or yarsani services? More than 4 times [...] 7:46 PM DARRYLT [place] Gunderson RN Active documented as of this encounter Mental Status * Because of a physical, mental, or emotional condition, do you have serious difficulty concentrating, remembering, or making decisions? Answer Entry Date Author Status No 08/26/2022 7:46 PM DARRYLT [place] Gunderson RN Active documented in this encounter Progress Notes * Yenifer Wolf MA - 09/08/2023 2:20 PM CDTAddended by: YENIFER WOLF on: 09/08/2023 02:20 PM Modules accepted: Orders * Yenifer Wolf MA - 09/08/2023 1:58 PM CDT Spoke with patient and informed her of lab results. The patient is ok with hematology referral. Referral has been placed. H/H is similar but still low with some findings consistent with multiple different issues. Pt does need referral to hematology (which was recommended by hospital and I am now agreeing with this recommendation). Will repeat labs at next OV. * Sanjeev Webster DO - 09/08/2023 1:04 PM CDT Results note is in place. * Yenifer Wolf MA - 09/03/2023 12:18 PM CDT Spoke with patient and informed her results are still pending. Did make follow up appt for INR * Sanjeev Webster DO - 09/03/2023 12:01 PM CDT Full results are pending still; need last result before can given full results. PT/INR is therapeutic; recheck in 2 weeks. * Dianne Johnson RN - 09/03/2023 10:33 AM CDT Patient requesting lab results done on 09/01/23. She would like nurse to leave a detailed message onTina's phone regarding any changes made to Warfarin if any. Izzy works in the daytime but will listen to her voicemail. Reminded patient of appointment with tomorrow at 1:00 PM. Patient verbalizes understanding. documented in this encounter Plan of Treatment Upcoming Encounters Date Type Department Care Team (Late st Contact Info) Description 04/14/2024 2:00 PM CHANGER FIXER Office Visit [facility] Medical Group Multispecialty Care - [facility] 3 [facility], [address] [place] [address] Julio Pulido MD 3 [place] [address] Scheduled Referrals Name Type Priority Associated Diagnoses Orde r Schedule Ambulatory referral to Hematology Referral Routine Anemia, unspecified type Low hemoglobin and low hematocrit Ordered: 09/08/2023 documented as of this encounter Goals Goal Patient Goal Type Associated Problems Recent Progress Patient-Stated? Author Health - patient able to perform ADLs independently General On track(2023 9:49 AM CDT) Dianne Corona RN Note: 12/17/23: Patient stated she is independent with ASL's. Establish Plan for Symptom Monitoring-CHF General On track(2023 11:36 AM CHANGER FIXER) Dianne Corona RN Note: Patient will recognize [...] Symptom Monitoring-COPD General On track(2023 11:36 AM CHANGER FIXER) Dianne Corona RN Note: Patient will recognize [...] Symptom Monitoring-DM General On track(2023 4:33 PM CHANGER FIXER) Dianne Corona RN Note: Patient will manage [...] Symptom Monitoring-HTN General On track(2023 4:33 PM CHANGER FIXER) Dianne Corona RN Note: Patient will monitor B/P several times per week , record readings and report to physician or CC if B/P consistently >130/80 Take your medications as prescribed. Follow up with your provider as scheduled. Take your blood pressure at least several times a week if able. documented as of this encounter Visit Diagnoses Diagnosis Anemia, unspecified type- Primary Low hemoglobin and low hematocrit documented in this encounter Additional Health Concerns Assessment Noted Time PHQ-9 Depression Total Score: 13 023 3:56 PM CDT documented as of this encounter Care Teams Internal Combustion Engine Assembler Relationship Specialty Start Date End Date Sanjeev Webster DO [address] [place] [address] PCP - General FAMILY PRACTICE 09/25/20 Dianne Johnson RN [address] [place] [address] Actuarial Analyst (Ambulatory) REGISTERED NURSE 08/14/20 documented as of this encounter
--- OUTSIDE RECORDS SUMMARY | 2024-03-15 00:51 | XMS_ITS | Encounter Summary ---
Author Organization [facility] Address [facility] [place] [address] [place] [address] Care Team Providers Care Technical Sales Support Manager Name Role Phone Dianne Johnson RN Unavailable [phone] Sanjeev Webster DO Primary Care Provider + Encounter Details Date Type Department Care Team (Latest Contact Info) Description 09/22/2023 Travel Social History Tobacco Use Types Packs/Day [...] any clubs o r organizations such as yarsanism groups, unions, fraternal or athletic groups, or [...] Recorded Patient Health Questionnaire-2 Score 1 08/06/2023 [facility] [...] st Contact Info) Description 04/14/2024 2:00 PM BIOINFORMATICS TECHNICIAN Office Visit [facility] Medical Group Multispecialty Care - [facility] 3 [facility], [address] [place] [address] Julio Pulido MD 3 [place] [address] documented as of this encounter Goals Goal Patient Goal Type Associated Problems Recent Progress Patient-Stated? Author Health - patient able to perform ADLs independently General On track(2023 9:49 AM CDT) Dianne Corona RN Note: 12/17/23: Patient stated she is independent with ASL's. Establish Plan for Symptom Monitoring-CHF General On track(2023 11:36 AM BIOINFORMATICS TECHNICIAN) Dianne Corona RN Note: Patient will [...] Symptom Monitoring-COPD General On track(2023 11:36 AM BIOINFORMATICS TECHNICIAN) Dianne Corona RN Note: Patient will [...] Symptom Monitoring-DM General On track(2023 4:33 PM BIOINFORMATICS TECHNICIAN) Dianne Corona RN Note: Patient will [...] Symptom Monitoring-HTN General On track(2023 4:33 PM BIOINFORMATICS TECHNICIAN) Dianne Corona, RN Note: Patient will monitor [...] documented as of this encounter Care Teams Technical Sales Support Manager Relationship Specialty Start Date End Date Sanjeev Webster DO [address] [place] [address] PCP - General FAMILY PRACTICE 09/25/20 Dianne Johnson, RN [address] [place] [address] Solar Manufacturer'S Representative (Ambulatory) REGISTERED NURSE 08/14/20 documented as of this encounter
--- OUTSIDE RECORDS SUMMARY | 2024-03-15 00:51 | XMS_ITS | Encounter Summary ---
Author Organization [facility] Address [facility]. [place], [place] [address] [place] [address] Care Team Providers Care Commercial Credit Head Name Role Phone Dianne Johnson RN Unavailable [phone] Sanjeev Webster DO Primary Care Provider + Reason for Visit * Reason Onset Date Comments Question 10/08/2023 Encounter Details Date Type Department Care Team (Late st Contact Info) Description 10/08/2023 Telephone [facility] Medical Group Family & Internal Medicine [facility] [address] [place] [address] Sanjeev Webster DO [address] [place] [address] Question Social History Tobacco Use [...] How often do you attend chur or orthodoxy services? More than 4 times per year 08/26/2022 Do you belong to any clubs o r organizations such as spiritism groups, unions, fraternal or athletic groups, or [...] Recorded Patient Health Questionnaire-2 Score 1 08/06/2023 [facility] [...] Progress Notes * Yenifer Ingram MA - 10/09/2023 10:33 AM CDT Spoke with izzy and advised her of PCP recommendations. She v/u and did not have questions at this time. Medication list updated to reflect. * Sanjeev Webster DO - 10/08/2023 4:23 PM CDT Yes, she should take an additional dose as she may not be maximizing her benefit for her leg pain with only twice daily. Given her kidney disease, I'd rather her split it to three doses than increaseone of the two doses she has. Pt can restart her statin. Pt can also a B complex vitamin (Super B-Complex from [employer] is reasonable) to see if this helps her leg pain. * Yenifer Ingram MA - 10/08/2023 3:38 PM CDT Gabapentin 300mg is BID. Izzy states the patient's pill organizer only has AM and PM spots. Izzy Tried puttign the 3rd gabapentin in a bag for the patient to take and she was forgetting to take them.Please advise if you would like patient to take TID. Izzy also asked about the stating medication. Is the patient still holding that medication? * Sanjeev Webster DO - 10/08/2023 12:16 PM CDT Please reach out to pt's family member who manages pt's medications. We are keeping her warfarin dose the same. Clarify if pt is taking gabapentin 300 mg three times daily. Also clarify all supplements that pt is taking regularly. Further instructions will be given based upon what she is taking. documented in this encounter Plan of Treatment Upcoming Encounters Date Type Department Care Team (Late st Contact Info) Description 04/14/2024 2:00 PM CHANGE MANAGEMENT Office Visit [facility] Medical Group Multispecialty Care - [facility] 3 [facility], [address] [place] [phone] Julio Pulido MD 3 [place] [address] documented as of this encounter Goals Goal Patient Goal Type Associated Problems Recent Progress Patient-Stated? Author Health - patient able to perform ADLs independently General On track(2023 9:49 AM CDT) Dianne Corona, DALE Note: 12/17/23: Patient stated she is independent with ASL's. Establish Plan for Symptom Monitoring-CHF General On track(2023 11:36 AM CHANGE MANAGEMENT) Dianne Corona, RN Note: Patient will recognize [...] Symptom Monitoring-COPD General On track(2023 11:36 AM CHANGE MANAGEMENT) Dianne Corona, RN Note: Patient will recognize [...] Symptom Monitoring-DM General On track(2023 4:33 PM CHANGE MANAGEMENT) Dianne Corona RN Note: Patient will manage [...] Symptom Monitoring-HTN General On track(2023 4:33 PM CHANGE MANAGEMENT) Dianne Corona RN Note: Patient will monitor [...] as of this encounter Care Teams Commercial Credit Head Relationship Specialty Start Date End Date Sanjeev Webster DO [address] [place] [address] PCP - General FAMILY PRACTICE 09/25/20 Dianne Johnson, RN [address] [place] [address] Director Of Perioperative Services (Ambulatory) REGISTERED NURSE 08/14/20 documented as of this encounter
--- OUTSIDE RECORDS SUMMARY | 2024-03-15 00:51 | XMS_ITS | Encounter Summary ---
Author Organization [facility] Address [facility] [place] [address] [place] [address] Care Team Providers Care Drawer Upfitter Name Role Phone Dianne Johnson RN Unavailable [phone] Sanjeev Webster DO Primary Care Provider + Encounter Details Date Type Department Care Team (Latest Contact Info) Description 09/01/2023 - 09/01/2023 11:59 PM CDT Hospital Encounter [facility] [address] [place] [address] Sanjeev Webster DO [address] [place] [address] Discharge Disposition: Home or Self [...] How often do you attend chur or baptism services? More than 4 times [...] hronic obstructive pulmonary disease, unspecified COPD type ([facility]) INHALE 2 PUFFS BY MOUTH EVERY 6 HOURS NEEDED FOR WHEEZING 18 g 5 11/19/2022 Blood Glucose Monitoring Suppl (ONE TOUCH ULTRA 2) w/Device KitIndications:Type 2 diabetes mellitus with stage 3b chronic kidney disease, without long-term current use of insulin ([facility]) 1 Device by Does not apply [...] disease, without long-term current use of insulin ([facility]) 1 Device by Does not apply route daily. 100 strip 3 12/26/2022 Lancets (LipperheyTOUCH ULTRASOFT) lancetsIndications:T ype 2 diabetes mellitus with stage 3b chronic kidney disease, without long-term current use of insulin ([facility]) 1 each by Other route as needed. Use as instructed 100 each 3 12/26/2022 methIMAzole (TAPAZOLE) 5 MG tablet Take 1 tablet (5 mg total) by mouth daily. 05/04/2023 Semaglutide (OZEMPIC, 0.25 OR 0.5 MG/DOSE, SC) Inject 0.5 mg into the skin once a week. simvastatin (ZOCOR) 10 MG tabletIndications:Hy perlipidemia associated with type 2 diabetes mellitus ([facility] HHS/HCC) Take 1 tablet (10 mg total) by mouth nightly at bedtime. 90 tablet 3 02/16/2023 vitamin B-12 (CYANOCOBALAMIN) (CYANOCOBALAMIN) 1000 mcg tablet Take 1 tablet (1,000 mcg total) by mouth daily. 08/26/2023 warfarin (COUMADIN) 2 MG tabletIndications:Ch ronic anticoagulation Take 1 tablet (2 mg total) by mouth daily. 30 tablet 1 07/08/2023 ALPRAZolam (XANAX) 0.5 MG tabletIndications:An xiety TAKE 1/2 (ONE-HALF) TABLET BY MOUTH NIGHTLY NEEDED FOR SLEEP 15 tablet 08/07/2023 09/16/19 24 docusate sodium (COLACE) 100 MG capsuleIndications:C onstipation Take one by mouth twice daily or as needed for constipation. 30 capsule 03/25/2023 11/19/19 24 furosemide (LASIX) 20 MG tabletIndications:Hy pertensive heart disease with congestive heart failure ([facility] HHS/HCC) Take 1 tablet by mouth once daily 30 tablet 08/27/2023 09/16/19 24 gabapentin (NEURONTIN) 300 MG capsuleIndications:C hronic low back pain, unspecified back pain laterality, unspecified whether sciatica present take 1 capsule by mouth three times daily 270 capsule 08/27/2023 01/19/20 24 HYDROcodone-acetamin ophen (NORCO) 5-325 MG tabletIndications:Ch ronic Pain Take 1-2 tablets by mouth every 6 (six) hours as needed for Pain. Indications: Chronic Pain 60 tablet 08/06/2023 09/08/19 24 iron polysaccharides (NIFEREX) 150 MG capsuleIndications:I elida deficiency anemia, unspecified iron deficiency anemia type [...] st Contact Info) Description 04/14/2024 2:00 PM FIXED CAPITAL CLERK Office Visit [facility] Medical Group Multispecialty Care - [facility] 3 [facility], [address] [place] [address] Julio Pulido MD 3 [place] [address] documented as of this encounter Goals Goal Patient Goal Type Associated Problems Recent Progress Patient-Stated? Author Health - patient able to perform ADLs independently General On track(2023 9:49 AM CDT) Dianne Corona RN Note: 12/17/23: Patient stated she is independent with ASL's. Establish Plan for Symptom Monitoring-CHF General On track(2023 11:36 AM FIXED CAPITAL CLERK) Dianne Corona RN Note: Patient will [...] Symptom Monitoring-COPD General On track(2023 11:36 AM FIXED CAPITAL CLERK) Dianne Corona RN Note: Patient will [...] Symptom Monitoring-DM General On track(2023 4:33 PM FIXED CAPITAL CLERK) Dianne Corona RN Note: Patient will [...] Symptom Monitoring-HTN General On track(2023 4:33 PM FIXED CAPITAL CLERK) Dianne Corona RN Note: Patient will [...] documented as of this encounter Care Teams Drawer Upfitter Relationship Specialty Start Date End Date Sanjeev Webster DO [address] [place] [address] PCP - General FAMILY PRACTICE 09/25/20 Dianne Johnson, RN [address] [place] [address] Production Corrugator (Ambulatory) REGISTERED NURSE 08/14/20 documented as of this encounter
--- OUTSIDE RECORDS SUMMARY | 2024-03-15 00:51 | XMS_ITS | Encounter Summary ---
Author Organization [facility] Address [facility] [address] [place] [address] Care Team Providers Care Inclusion Paraeducator Name Role Phone Dianne Johnson RN Unavailable [phone] Sanjeev Webster DO Primary Care Provider + Reason for Visit * Reason Comments Anticoagulation Encounter Details Date Type Department Care Team (Late st Contact Info) Description 09/28/2023 2:00 PM CDT Allied Health/Nurse Visit [facility] Medical Group Family & Internal Medicine [address] [address] Sanjeev Webster DO [facility] [place] [address] Anticoagulation Social History Tobacco Use [...] often do you attend chur ch or restorationism services? More than 4 times per year 08/26/2022 Do you belong to any clubs o r organizations such as synagogue groups, unions, fraternal or athletic groups, or [...] Recorded Patient Health Questionnaire-2 Score 1 08/06/2023 [facility] Occupat ional Health - Occupational [...] st Contact Info) Description 04/14/2024 2:00 PM WELDER FITTER APPRENTICE Office Visit [facility] Medical Group Multispecialty Care - [facility] 3 [facility], [address] [place] [address] Julio Pulido MD 3 [place] [address] documented as of this encounter Goals Goal Patient Goal Type Associated Problems Recent Progress Patient-Stated? Author Health - patient able to perform ADLs independently General On track(2023 9:49 AM CDT) Dianne Corona RN Note: 12/17/23: Patient stated she is independent with ASL's. Establish Plan for Symptom Monitoring-CHF General On track(2023 11:36 AM WELDER FITTER APPRENTICE) Dianne Corona RN Note: Patient will recognize [...] Symptom Monitoring-COPD General On track(2023 11:36 AM WELDER FITTER APPRENTICE) Dianne Corona RN Note: Patient will recognize [...] Symptom Monitoring-DM General On track(2023 4:33 PM WELDER FITTER APPRENTICE) Dianne Corona RN Note: Patient will manage [...] Symptom Monitoring-HTN General On track(2023 4:33 PM WELDER FITTER APPRENTICE) Dianne Corona RN Note: Patient will monitor [...] Date/Time Associated Diagnosis Comments COLLECT.CAPILLARY (FNGR,HEEL,EAR) Routine 09/28/2023 2:18 PM CDT Chronic anticoagulation PROTHROMBIN TIME, FINGERSTICK Routine 09/28/2023 Chronic anticoagulation documented in this encounter Results * PROTIME/INR, FINGERSTICK (09/28/2023) INR WHOLE BLOOD 2.20 MG-S [facility] 09/28/2023 us Sanjeev Wesbter DO LABORATORY Final Re sult [facility] [address] [place] [address], documented in this encounter Visit Diagnoses Diagnosis Chronic anticoagulation- Primary Encounter for long-term (current) use of anticoagulants documented in this encounter Additional Health Concerns Assessment Noted Time PHQ-9 Depression Total Score: 13 023 3:56 PM CDT documented as of this encounter Care Teams Inclusion Paraeducator Relationship Specialty Start Date End Date Sanjeev Webster DO [address] [place] [address] PCP - General FAMILY PRACTICE 09/25/20 Dianne Johnson, RN [address] [place] [address] Toy Painter (Ambulatory) REGISTERED NURSE 08/14/20 documented as of this encounter
--- OUTSIDE RECORDS SUMMARY | 2024-03-15 00:51 | XMS_ITS | Encounter Summary ---
Author Organization [facility] Address [facility]6 [facility] [place] [address] [place] [address] Care Team Providers Care Inpatient Auditor Name Role Phone Dianne Johnson RN Unavailable [phone] Sanjeev Webster DO Primary Care Provider + Encounter Details Date Type Department Care Team (Latest Contact Info) Description 09/02/2023 Scan HEALTH INFO SRVCS Scanned, Doc Med [...] often do you attend chur ch or denominational services? More than 4 times per year [...] Questionnaire-2 Score 1 08/06/2023 [facility] Occupat ional Health [...] st Contact Info) Description 04/14/2024 2:00 PM BENCH TOOL MAKER Office Visit [facility] Medical Group Multispecialty Care - [facility] 3 [facility], [address] [place] [address] Julio Pulido MD [address] [place] [address] documented as of this encounter Goals Goal Patient Goal Type Associated Problems Recent Progress Patient-Stated? Author Health - patient able to perform ADLs independently General On track(2023 9:49 AM CDT) Dianne Corona RN Note: 12/17/23: Patient stated she is independent with ASL's. Establish Plan for Symptom Monitoring-CHF General On track(2023 11:36 AM BENCH TOOL MAKER) Dianne Corona RN Note: Patient will [...] Symptom Monitoring-COPD General On track(2023 11:36 AM BENCH TOOL MAKER) Dianne Corona RN Note: Patient will [...] Symptom Monitoring-DM General On track(2023 4:33 PM BENCH TOOL MAKER) Dianne Corona, RN Note: Patient will [...] Symptom Monitoring-HTN General On track(2023 4:33 PM BENCH TOOL MAKER) Dianne Corona, RN Note: Patient will [...] documented as of this encounter Care Teams Inpatient Auditor Relationship Specialty Start Date End Date Sanjeev Webster DO [address] [place] [address] PCP - General FAMILY PRACTICE 09/25/20 Dianne Johnson RN [address] [place] [address] Hospital Mortician (Ambulatory) REGISTERED NURSE 6/8/21 documented as of this encounter
--- OUTSIDE RECORDS SUMMARY | 2024-03-15 00:51 | XMS_ITS | Encounter Summary ---
Author Organization [facility] Address [facility]6 [facility] [place] [address] [place] [address] Care Team Providers Care Survey Compiler Name Role Phone Dianne Johnson RN Unavailable [phone] Sanjeev Montez DO Primary Care Provider + Reason for Visit * Reason Onset Date Comments Medication Request 09/08/2023 Encounter Details Date Type Department Care Team (Late st Contact Info) Description 09/08/2023 Telephone [facility] Medical Group Family & Internal Medicine [facility] [address] [place] [address] Sanjeev Montez DO [address] [place] [address] Medication Request Social History Tobacco [...] Recorded Patient Health Questionnaire-2 Score 1 08/06/2023 [facility] - Occupational [...] in this encounter Progress Notes * Sanjeev Montez DO - 09/08/2023 11:28 AM CDTAddended by: SANJEEV MONTEZ on: 09/08/2023 11:28 AM Modules accepted: Orders * Yenifer Wolf MA - 09/08/2023 10:51 AM CDTAddended by: YENIFER WOLF on: 09/08/2023 10:51 AM Modules accepted: Orders * Lola Eli - 09/08/2023 10:15 AM CDT Refill request received from Patient Medication: HYDROcodone-acetaminophen (NORCO) 5-325 MG tablet Pharmacy: [address] Last visit with SANJEEV MONTEZ in FAMILY PRACTICE was on: 09/01/[address] [facility] Future Appointments Date Time Provider Department Center 09/17/2023 1:[address] [facility] NURSE [facility] 10/08/2023 11:20 AM Sanjeev Montez DO [facility] 03/04/2024 1:00 PM Sania Gomez MD [facility] 04/14/2024 2:00 PM Julio Pulido MD [facility] documented in this encounter Plan of Treatment Upcoming Encounters Date Type Department Care Team (Late st Contact Info) Description 04/14/2024 2:00 PM TATTOO AND BODY ARTIST Office Visit [facility] Medical Group Multispecialty Care - [facility] 3 [facility], [address] [place] [address] Julio Pulido MD [address] [place] [address] documented as of this encounter Goals Goal Patient Goal Type Associated Problems Recent Progress Patient-Stated? Author Health - patient able to perform ADLs independently General On track(2023 9:49 AM CDT) Dianne Corona RN Note: 12/17/23: Patient stated she is independent with ASL's. Establish Plan for Symptom Monitoring-CHF General On track(2023 11:36 AM TATTOO AND BODY ARTIST) Dianne Corona, RN Note: Patient will recognize [...] Symptom Monitoring-COPD General On track(2023 11:36 AM TATTOO AND BODY ARTIST) Dianne Corona, RN Note: Patient will recognize [...] Symptom Monitoring-DM General On track(2023 4:33 PM TATTOO AND BODY ARTIST) Dianne Corona RN Note: Patient will manage [...] Symptom Monitoring-HTN General On track(2023 4:33 PM TATTOO AND BODY ARTIST) Dianne Corona, RN Note: Patient will monitor B/P several times per week , record readings and report to physician or CC if B/P consistently >130/80 Take your medications as prescribed. Follow up with your provider as scheduled. Take your blood pressure at least several times a week if able. documented as of this encounter Visit Diagnoses Diagnosis Other chronic pain documented in this encounter Additional Health Concerns Assessment Noted Time PHQ-9 Depression Total Score: 13 023 3:56 PM CDT documented as of this encounter Care Teams Survey Compiler Relationship Specialty Start Date End Date Sanjeev Montez DO [address] [place] [address] PCP - General FAMILY PRACTICE 09/25/20 Dianne Johnson, RN [address] [place] [address] City Auditor (Ambulatory) REGISTERED NURSE 08/14/20 documented as of this encounter
--- OUTSIDE RECORDS SUMMARY | 2024-03-15 00:51 | XMS_ITS | Encounter Summary ---
Author Organization [facility] Address [facility]. [place], [place] [address] [place] [address] Care Team Providers Care Articulation Officer Name Role Phone Dianne Johnson RN Unavailable [phone] Sanjeev Webster DO Primary Care Provider + Reason for Visit * Reason Onset Date Comments Information 10/01/2023 Encounter Details Date Type Department Care Team (Late st Contact Info) Description 10/01/2023 Telephone [facility] Medical Group Family & Internal Medicine [place] [address] [place] [address] Sanjeev Webster DO [facility] [place] [address] Information Social History Tobacco Use [...] any clubs o r organizations such as sikh groups, unions, fraternal or athletic groups, or [...] Recorded Patient Health Questionnaire-2 Score 1 08/06/2023 [facility] Occupat ional Health - Occupational Stress [...] Progress Notes * Yenifer Wolf MA - 10/05/2023 12:20 PM CDT Spoke with patient and made her aware of providers recommendations. Called and left a very detailedmessage for izzy. Informed her to r/c if needed. * Sanjeev Webster DO - 10/02/2023 3:36 PM CDT Continue holding statin, but we will need to discuss then at OV scheduled for next week. * Lashawn Vega - 10/02/2023 11:35 AM CDT Pt daughter in law calling again, she would like Yenifer to call her. Says pt was taken off of statin, but yes legs are still cramping. * Yenifer Wolf MA - 10/01/2023 3:54 PM CDTAddended by: YENIFER WOLF on: 10/01/2023 03:54 PM Modules accepted: Orders * Yenifer Wolf MA - 10/01/2023 3:43 PM CDT Simvastatin- Izzy will talk with patient and check on leg pains and return call to the office. Warfarin- 6mg once daily. Repeat INR on 10/05/2023. (Clarified per last INR notes) Metoprolol prescription clarified. Patient is to take metoprolol succinate. Refills sent on furosemide, warfarin. * Lola Eli - 10/01/2023 3:15 PM CDT Pts daughter in law called in having medication questions. No one available at this time Please advise documented in this encounter Plan of Treatment Upcoming Encounters Date Type Department Care Team (Late st Contact Info) Description 04/14/2024 2:[address]GE Office Visit [facility] Medical Group Multispecialty Care - [facility] 3 [facility], [address] [place] [address] Julio Pulido MD 3 [place] [address] documented as of this encounter Goals Goal Patient Goal Type Associated Problems Recent Progress Patient-Stated? Author Health - patient able to perform ADLs independently General On track(2023 9:49 AM CDT) Dianne Corona RN Note: 12/17/23: Patient stated she is independent with ASL's. Establish Plan for Symptom Monitoring-CHF General On track(2023 11:[address] JUDGE) Dianne Corona RN Note: Patient will recognize [...] Monitoring-COPD General On track(2023 11:[address] JUDGE) Dianne Corona RN Note: Patient will recognize [...] Monitoring-DM General On track(2023 4:[address] JUDGE) Dianne Corona RN Note: Patient will manage [...] Monitoring-HTN General On track(2023 4:[address] JUDGE) Dianne Corona RN Note: Patient will monitor B/P several times per week , record readings and report to physician or CC if B/P consistently >130/80 Take your medications as prescribed. Follow up with your provider as scheduled. Take your blood pressure at least several times a week if able. documented as of this encounter Visit Diagnoses Diagnosis Chronic anticoagulation- Primary Encounter for long-term (current) use of anticoagulants Hypertensive heart disease with congestive heart failure ([facility]) Unspecified hypertensive heart disease with heart failure documented in this encounter Additional Health Concerns Assessment Noted Time PHQ-9 Depression Total Score: 13 023 3:56 PM CDT documented as of this encounter Care Teams Articulation Officer Relationship Specialty Start Date End Date Sanjeev Webster DO [address] [place] [address] PCP - General FAMILY PRACTICE 09/25/20 Dianne Johnson, RN [address] [place], [place] [address] Ginning Operator (Ambulatory) REGISTERED NURSE 08/14/20 documented as of this encounter
--- OUTSIDE RECORDS SUMMARY | 2024-03-15 00:51 | XMS_ITS | Encounter Summary ---
Author Organization [facility] Address [facility]6 [facility]. [place], [place] [address] [place] [address] Care Team Providers Care Route Delivery Manager Name Role Phone Dianne Johnson RN Unavailable [phone] Sanjeev Webster DO Primary Care Provider + Reason for Visit * Reason Onset Date Comments Concerns 09/16/2023 Callback 09/16/2023 Encounter Details Date Type Department Care Team (Late st Contact Info) Description 09/16/2023 Telephone [facility] Medical Group Family & Internal Medicine [place] [id number] [place] [address] Sanjeev Webster DO [address] [place] [address] Concerns; Callback Social History Tobacco Use Types Packs/Day Years [...] any clubs o r organizations such as yazdanism groups, unions, fraternal or athletic groups, or [...] Recorded Patient Health Questionnaire-2 Score 1 08/06/2023 [facility] of Occupat ional Health - [...] documented in this encounter Progress Notes * Donna Norwood - 09/17/2023 2:53 PM CDT Izzy called back and I informed her to hold the simvastatin for 2 weeks. * Gloria Patel MA - 09/17/2023 2:33 PM CDT 09/17/23: Called patient and informed to hold simvastatin for 2 weeks to see if helps. Patient stated would like office to also call Izzy Martinez (daughter in law) and inform her also. Called Izzy at the mobil number on file and LMOM. Waiting for return call, la,rm a * Sanjeev Webster DO - 09/17/2023 7:39 AM CDT Can hold simvastatin for 2 weeks and see if this helps symptoms. * Dianne Johnson RN - 09/16/2023 3:37 PM CDT Patient concerns or urgent matters that need addressed: Patient having leg cramps and aching in legs. C/O of stiffness, cramps and pain in hands. Hard to open hands on and off. Patient currently taking Simvastatin 10 mg daily. Occurs at night. documented in this encounter Plan of Treatment Upcoming Encounters Date Type Department Care Team (Late st Contact Info) Description 04/14/2024 2:00 PM ASSISTANT SALES CENTER MANAGER Office Visit [facility] Medical Group Multispecialty Care - [facility] 3 [facility], [address] [place] [address] Julio Pulido MD [address] [place] [address] documented as of this encounter Goals Goal Patient Goal Type Associated Problems Recent Progress Patient-Stated? Author Health - patient able to perform ADLs independently General On track(2023 9:49 AM CDT) Dianne Corona, DALE Note: 12/17/23: Patient stated she is independent with ASL's. Establish Plan for Symptom Monitoring-CHF General On track(2023 11:36 AM ASSISTANT SALES CENTER MANAGER) Dianne Corona, RN Note: Patient will [...] Symptom Monitoring-COPD General On track(2023 11:36 AM ASSISTANT SALES CENTER MANAGER) Dianne Corona RN Note: Patient will [...] Symptom Monitoring-DM General On track(2023 4:33 PM ASSISTANT SALES CENTER MANAGER) Dianne Corona, RN Note: Patient will [...] Symptom Monitoring-HTN General On track(2023 4:33 PM ASSISTANT SALES CENTER MANAGER) Dianne Corona, RN Note: Patient will [...] documented as of this encounter Care Teams Route Delivery Manager Relationship Specialty Start Date End Date Sanjeev Webster DO [address] [place] [address] PCP - General FAMILY PRACTICE 09/25/20 Dianne Johnson RN [address] [place] [address] Safety Officer (Ambulatory) REGISTERED NURSE 08/14/20 documented as of this encounter
--- OUTSIDE RECORDS SUMMARY | 2024-03-15 00:51 | XMS_ITS | Encounter Summary ---
Author Organization [facility] Address [facility]6 [facility] [place] [address] [place] [address] Care Team Providers Care Admitting Manager Name Role Phone Dianne Johnson RN Unavailable [phone] Sajneev Webster DO Primary Care Provider + Encounter Details Date Type Department Care Team (Latest Contact Info) Description 09/01/2023 Travel Social History Tobacco Use Types Packs/Day [...] How often do you attend chur or episcopal services? More than 4 times [...] st Contact Info) Description 04/14/2024 2:00 PM COMPRESSED GAS PLANT WORKER Office Visit [facility] Medical Group Multispecialty Care - [facility] 3 [facility], [address] [place] [address] Julio Pulido MD [address] [place] [address] documented as of this encounter Goals Goal Patient Goal Type Associated Problems Recent Progress Patient-Stated? Author Health - patient able to perform ADLs independently General On track(2023 9:49 AM CDT) Dianne Corona RN Note: 12/17/23: Patient stated she is independent with ASL's. Establish Plan for Symptom Monitoring-CHF General On track(2023 11:36 AM COMPRESSED GAS PLANT WORKER) Dianne Corona RN Note: Patient will [...] Symptom Monitoring-COPD General On track(2023 11:36 AM COMPRESSED GAS PLANT WORKER) Dianne Corona RN Note: Patient will [...] Symptom Monitoring-DM General On track(2023 4:33 PM COMPRESSED GAS PLANT WORKER) Dianne Corona RN Note: Patient will [...] Symptom Monitoring-HTN General On track(2023 4:33 PM COMPRESSED GAS PLANT WORKER) Dianne Corona, RN Note: Patient will [...] documented as of this encounter Care Teams Admitting Manager Relationship Specialty Start Date End Date Sanjeev Webster DO [address] [place] [address] PCP - General FAMILY PRACTICE 09/25/20 Dianne Johnson, RN [address] [place] [address] Rn Primary Care (Ambulatory) REGISTERED NURSE 08/14/20 documented as of this encounter
--- OUTSIDE RECORDS SUMMARY | 2024-03-15 00:51 | XMS_ITS | Encounter Summary ---
Author Organization [facility] Address [facility]6 [facility] [place] [address] [place] [address] Care Team Providers Care Construction Superintendent Name Role Phone Dianne Johnson RN Unavailable [phone] Sanjeev Webster DO Primary Care Provider + Encounter Details Date Type Department Care Team (Latest Contact Info) Description 09/28/2023 Travel Social History Tobacco Use Types Packs/Day [...] Recorded Patient Health Questionnaire-2 Score 1 08/06/2023 [facility] of Occupat ional [...] st Contact Info) Description 04/14/2024 2:00 PM AUTOMOBILE ACCESSORIES INSTALLER Office Visit [facility] Medical Group Multispecialty Care - [facility] 3 [facility], [address] [place] [address] Julio Pulido MD [address] [place] [address] documented as of this encounter Goals Goal Patient Goal Type Associated Problems Recent Progress Patient-Stated? Author Health - patient able to perform ADLs independently General On track(2023 9:49 AM CDT) Dianne Corona RN Note: 12/17/23: Patient stated she is independent with ASL's. Establish Plan for Symptom Monitoring-CHF General On track(2023 11:36 AM AUTOMOBILE ACCESSORIES INSTALLER) Dianne Corona RN Note: Patient will recognize [...] Symptom Monitoring-COPD General On track(2023 11:36 AM AUTOMOBILE ACCESSORIES INSTALLER) Dianne Corona RN Note: Patient will recognize [...] Symptom Monitoring-DM General On track(2023 4:33 PM AUTOMOBILE ACCESSORIES INSTALLER) Dianne Corona RN Note: Patient will manage [...] Symptom Monitoring-HTN General On track(2023 4:33 PM AUTOMOBILE ACCESSORIES INSTALLER) Dianne Corona, RN Note: Patient will monitor [...] documented as of this encounter Care Teams Construction Superintendent Relationship Specialty Start Date End Date Sanjeev Webster DO [address] [place] [address] PCP - General FAMILY PRACTICE 09/25/20 Dianne Johnson, RN [address] [place] [address] Mash Filter Cloth Changer (Ambulatory) REGISTERED NURSE 08/14/20 documented as of this encounter
--- OUTSIDE RECORDS SUMMARY | 2024-03-15 00:51 | XMS_ITS | Encounter Summary ---
Author Organization [facility] Address [facility] [place], [place] [address] [place] [id number] Care Team Providers Care Hand Binder Stripper Name Role Phone Dianne Johnson RN Unavailable [phone] Sanjeev Webster DO Primary Care Provider + Reason for Visit * Reason Comments CHF 6mo Atrial Fibrillation Lipids * Consultation (Urgent) - Closed Specialty Diagnoses / Procedures Referred By Contac t Referred To Contact CARDIOLOGY / Cardiology Diagnoses Chronic heart failure with preserved ejection fraction (HFpEF) ([facility]) Paroxysmal atrial fibrillation ([facility]) LBBB (left bundle branch block) Coronary artery disease involving [place] coronary artery of [place] valley heart without angina pectoris Procedures OFFICE/OUTPT VISIT,NEW,LEVL III OFFICE/OUTPT VISIT,NEW,LEVL IV OFFICE/OUTPT VISIT,NEW,LEVL V OFFICE/OUTPT VISIT,EST,LEVL III OFFICE/OUTPT VISIT,EST,LEVL IV OFFICE/OUTPT VISIT,EST,LEVL V Sanjeev Webster DO [address] [place] [address] Phone: tel: fax: Christiana Gomez MD [facility] [address] [place] [address] Phone: tel: fax: Referral ID Status Reason Start Date Expiration Date V isits Requested Visits Authorized [id number] Closed Specialty Services 09/22/2022 09/23/2023 12 12 Encounter Details Date Type Department Care Team (Latest Contact Info) Description 09/04/2023 1:00 PM CDT Office Visit [facility] [phone] Christiana Gomez MD [facility] [address] [place], [place] [id number] CHF (6mo); Atrial Fibrillation; Lipids Social History Tobacco Use Types Packs/Day Years [...] Recorded Patient Health Questionnaire-2 Score 1 08/06/2023 [facility] [...] Sign Reading Time Taken Comments Blood Pressure 110/56 09/04/2023 1:09 PM CDT Pulse 81 09/04/2023 1:09 PM CDT Temperature - - Respiratory Rate - - Oxygen Saturation - - Inhaled Oxygen Concentration - - Weight 84.5 kg (186 lb 3.2 oz) 09/04/2023 1:09 P M CDT Height 165.1 cm (5' 5 ) 09/04/2023 1:09 PM CDT Body Mass Index 30.99 09/04/2023 1:09 PM CDT documented in this encounter Functional [...] documented in this encounter Progress Notes * Christiana Gomez MD - 09/04/2023 1:00 PM CDT Images from the original note were not included. [place], [place] [address] Cardiology Consult PCP: Sanjeev Webster DO Past Cardiac History Prior to Appointment HFmrEF c/b RV dysfunction and pHTN: TTE 10/2021 EF 40-45% Paroxysmal A. Fib: - failed sotalol, on amiodarone (d/c 2/2 toxicity), significant bradycardia with metoprolol succinate Mechanical Aortic Valve: warfarin Moderate MR: TTE 10/2021 Coronary artery Calcification Hyperlipidemia VAZQUEZ: on CPAP RMCA saccular aneurysm Interval History Patient hospitalized 08/2023 at [facility] for afib w/ RVR.The patient presents to [facility] ER with complaints of palpitations since 08/16/2023. Associated with dry cough. Admitted on 08/23/2023 as she was found in AFib with RVR. She was given diltiazem 10 mg IV push x2 on admission. Subsequently return to controlled rate. Her CHIEF LENDING OFFICER metoprolol 12.5 mg p.o. QD was increased to 25 mg p.o.b.i.d. however she then developed slow response with ventricular rate in the 40sto 50s. Upon holding the beta-lexy her heart rate came back to the 80s. Patient agreed to be discharged on a low-dose metoprolol succinate 12.5 mg p.o. q.day while monitoring her heart rate and following up with Cardiology outpatient shortly. Her hemoglobin on admission 9.0. Stable between 7.6 and 8.1 thereafter. Approximately year ago was in the 10s. Patient denied start stool/bright red blood per rectum. Her MCV between 94 [id number] therefore likely macrocytic etiology. Folate 14.6. Vitamin B12 274 which is borderline low. Administered IM injection. Discharged on 1000 mcg p.o. q.day. follow-up with Maribell carty/ hematology. She does have a [employer] mechanical aortic valve but her retic count was normal. Haptoglobin pending. Since discharge states she is doing well. Denies any significant symptoms. Patient denies any chestpain, shortness of breath, dyspnea on exertion, pnd, orthopnea, lower extremity edema, fatigue,decreased appetite, palpitations, light headedness, dizziness, syncope. History Ms. Radha Huynh is a 78-year-old female Last visit with CHRISTIANA GOMEZ in Cardiology was on: 10/03/2022 in [facility]. Patient was previously following with Dr. Ordoñez. She wishes to transfer care. Valve replaced at [place] in [place]. She is unsure what year. States overall she is doing well. Patient denies any chest pain, shortness of breath, orthopnea, lower extremity edema, fatigue,decreased appetite, palpitations, light headedness, dizziness, syncope. She has stable TORRES. Her physical activity is mostly limited byback pain (states she has a broken back). Last visit with CHRISTIANA GOMEZ in Cardiology was on: 10/03/2022 in [facility]. Since shewas last seen she states she is doing well. Patient denies any chest pain, shortness of breath, dyspnea on exertion, pnd, orthopnea, lower extremity edema,decreased appetite, palpitations, light headedness, dizziness, syncope. Has stable fatigue. No issues with her medication. 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 Anxiety Atrial fibrillation with rapid ventricular response ([facility]) 08/22/2020 Atrial flutter ([facility]) Cataract Chronic anticoagulation due to mechanical heart valve Chronic pain Diabetes mellitus ([facility]) H/O mechanical aortic valve replacement 2003 Hypertension Kidney stone 02/03/2017 On amiodarone therapy 05/21/2021 Past Surgical History: Procedure Laterality Date REPAIR HEART WOUND Social History Tobacco Use Smoking status: Never Passive exposure: Past Smokeless tobacco: Never Tobacco comments: non smoker Vaping Use Vaping status: Never Used Substance Use Topics Alcohol use: Not Currently Drug use: Yes Types: Hydrocodone Comment: chronic pain Family History Problem Relation Name Age of Onset Heart Father Diabetes Father Heart Mother Prior to Admission medications Medication Sig Start Date End Date Taking? Authorizing Provider acetaminophen (TYLENOL) 500 MG tablet Take 1 tablet (500 mg total) by mouth daily as needed. No more then 2500 mg per day. 08/17/20 Yes Doc [facility] albuterol sulfate HFA 108 (90 Base) MCG/ACT inhaler INHALE 2 PUFFS BY MOUTH EVERY 6 HOURS NEEDEDFOR WHEEZING 11/19/22 Yes Sanjeev Webster DO ALPRAZolam (XANAX) 0.5 MG tablet TAKE 1/2 (ONE-HALF) TABLET BY MOUTH NIGHTLY NEEDED FOR SLEEP 08/07/23 Yes Sanjeev Webster DO Blood Glucose Monitoring Suppl (ONE TOUCH ULTRA 2) w/Device Kit 1 Device by Does not apply route daily. 12/26/22 Yes Sanjeev Webster DO Cholecalciferol (VITAMIN D3) 25 MCG (1000 UT) Cap Take 1 capsule (1,000 Units total) by mouth daily. Yes Doc [facility] cinacalcet (SENSIPAR) 30 MG tablet Take 0.5 tablets (15 mg total) by mouth daily. 07/02/23 Yes Default History Genericprovider ferrous sulfate, 65 mg elemental, 325 (65 FE) MG tablet Take 1 tablet (325 mg total) by mouth dailywith breakfast. Yes Default History Genericprovider furosemide (LASIX) 20 MG tablet Take 1 tablet by mouth once daily 08/27/23 Yes Sanjeev Webster DO gabapentin (NEURONTIN) 300 MG capsule take 1 capsule by mouth three times daily 08/27/23 Yes Jonathan Webster DO Glucose Blood (BLOOD GLUCOSE TEST STRIPS) Strip 1 Device by Does not apply route daily. 12/26/22 Yes Sanjeev Webster DO HYDROcodone-acetaminophen (NORCO) 5-325 MG tablet Take 1-2 tablets by mouth every 6 (six) hours as needed for Pain. Indications: Chronic Pain 08/06/23 Yes Sanjeev Webster DO iron polysaccharides (NIFEREX) 150 MG capsule Take 1 capsule (150 mg total) by mouth daily. 06/03/22Yes Sanjeev Webster DO Lancets (ONETOUCH ULTRASOFT) lancets 1 each by Other route as needed. Use as instructed 12/26/22 Yes Sanjeev Webster DO methIMAzole (TAPAZOLE) 5 MG tablet Take 1 tablet (5 mg total) by mouth daily. 05/04/23 Yes Default History Genericprovider metoprolol succinate ER (TOPROL-XL) 25 MG 24 hr tablet Take 0.5 tablets (12.5 mg total) by mouth daily. 08/26/23 Yes Default History Genericprovider omeprazole (PRILOSEC) 40 MG capsule Take 1 capsule (40 mg total) by mouth daily. 05/14/23 Yes Jonathan Webster DO potassium chloride CR (K-TAB) 10 MEQ Tab CR tablet Take 1 tablet by mouth once daily 08/27/23 Yes Sanjeev Webster DO Semaglutide (OZEMPIC, 0.25 OR 0.5 MG/DOSE, SC) Inject 0.5 mg into the skin once a week. Yes DefaultHistory Genericprovider simvastatin (ZOCOR) 10 MG tablet Take 1 tablet (10 mg total) by mouth nightly at bedtime. 02/16/23 Yes Sanjeev Webster DO venlafaxine XR (EFFEXOR-XR) 150 MG 24 hr capsule Take 1 capsule by mouth once daily 08/27/23 Yes Sanjeev Webster DO vitamin B-12 (CYANOCOBALAMIN) (CYANOCOBALAMIN) 1000 mcg tablet Take 1 tablet (1,000 mcg total) by mouth daily. 08/26/23 Yes Default History Genericprovider warfarin (COUMADIN) 2 MG tablet Take 1 tablet (2 mg total) by mouth daily. 07/08/23 Yes Sanjeev Webster DO warfarin (COUMADIN) 5 MG tablet Take 1 tablet (5 mg total) by mouth daily. 06/11/23 Yes Sanjeev Webster DO docusate sodium (COLACE) 100 MG capsule Take one by mouth twice daily or as needed for constipation. Patient not taking: Reported on 09/04/2023 03/25/23 Sanjeev Webster DO Review of patient's allergies indicates: Allergen Reactions Atorvastatin Leg Pain Leg pain/cramps. Resolved after stopping. Tape Contact Dermatitis Benzalkonium Other (see comment) Cortisone Unknown Gramicidin Other (see comment) Hydrocortisone Other (see comment) Rosuvastatin Leg Pain Cramping in legs Bacitracin Other (see comment) and Rash Neomycin Other (see comment) and Rash Polymyxin B Other (see comment) and Rash Review of Systems: A 14 point ROS was completed and was negative except as per HPI. Physical Exam Filed Vitals: 09/04/23 1309 BP: 110/56 Pulse: 81 Weight: 84.5 kg (186 lb 3.2 oz) Height: 1.651 m (5' 5 ) Body mass index is 30.99 kg/m??. Physical Exam: General: NAD, Appears Normal Stated Age HEENT: PEERL, EOMI, MMM NECK: No JVD CVS: RRR, no MRG Resp: CTAB, no wheezes, rales, rhonchi ABD: Soft, NT, ND, +BS Ext: No CCE Diagnostic Data Lab Results Component Value Date/Time WBC 6.71 09/01/2023 11:54 AM HGB 8.8 (L) 09/01/2023 11:54 AM HCT 29.7 (L) 09/01/2023 11:54 AM PLT 303 09/01/2023 11:54 AM NA 144 09/01/2023 11:54 AM CL 106 09/01/2023 11:54 AM K 4.0 09/01/2023 11:54 AM GLU 106 (H) 09/01/2023 11:54 AM BUN 25 (H) 09/01/2023 11:54 AM CR 1.38 (H) 09/01/2023 11:54 AM CA 9.7 09/01/2023 11:54 AM MAGNESIUM 1.9 08/26/2022 04:21 PM AST 15 09/01/2023 11:54 AM ALT 14 09/01/2023 11:54 AM ALB 3.3 (L) 09/01/2023 11:54 AM Lab Results Component Value Date CHOL 201 (H) 08/14/2023 TRI 97 08/14/2023 HDL 66 08/14/2023 HGBA1C 6.5 08/06/2023 TSH 3.146 08/14/2023 No results for input(s): TROP , TROPIWB in the last 168 hours. EK08/2022: SB, APC, LBBB Transthoracic Echocardiogram TTE 10/2021: The left ventricular size is normal. Estimated left ventricular ejection fraction is 40-45%. Moderate concentric left ventricular hypertrophy. Left ventricular diastolic function is abnormal (grade 2 - pseudonormal pattern). ??Moderate global hypokinesis is noted. The right ventricular size is normal. Right ventricular systolic function is moderately depressed. A mechanical valve is in the aortic position with post-deployment peak velocity of 3.53m/sec, mean gradient of 31mmHg and a calculated YADIRA of 1.10cm2. Right ventricular systolic pressure is 40-50 mmHg suggestive of mild to moderate pulmonary hypertension. Mild to moderate tricuspid regurgitation. Moderate mitral regurgitation. Stress Test RegSpect 10/2021: Stress conclusion: 1. Clinically negative. 2. Electrocardiographically negative stress test for ischemia. 3. Scintigraphic images to follow. Perfusion conclusion: 1. Good study quality. No motion correction was applied to images. No attenuation is noted. 2. Normal myocardial perfusion SPECT imaging. 3. Abnormal wall motion with an ejection fraction of 51%. 4. Stress test with myocardial perfusion imaging shows overall low risk for a cardiac event. Holter Left Heart Catherization Assessment/Plan #Mechanical Aortic Valve - TTE 10/2021: PV 3.53m/s, MG 31mmHG, YADIRA 1.10 - TTE 08/2023: PV 2.83, MG 11 - continue warfarin, INR goal 2.5-3.5 - lifelong dental ppx - annual TTE, due 08/2024 #Paroxysmal A. Fib: - continue Warfarin, Metoprolol XL 12.5 mg QD - failed sotalol, on amiodarone (d/c 2/2 toxicity), significant bradycardia previously w/ metoprolol succinate, currently w/ normal HR - 48 Day event monitor ordered to assess for bradycardia. 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 c/b RV dysfunction and PH - TTE 08/2023: LVEF 45-50% - continue lasix 20 QD, - GDMT limited by orthostatic hypotension, continue metoprolol XL 12.5 mg QD #Moderate MR: TTE 08/2023 - CTM #Hypertension: c/b orthostatic hypotension - continue metoprolol XL 12.5 mg QD #Coronary Artery Calcification -Reg Spect 10/2021: negative for ischemia/infarction #Hyperlipidemia: goal LDL <70 08/14/2023 12:00 PM LIPID PANEL FLOWSHEET CHOLESTEROL 201 TRIGLYCERIDES 97 HDL 66 NON HDL CHOLESTEROL 135 LDL 116 - recently started on simvastatin, LDL down - prior statin intolerance, will hold off on escalating dose. Not interested in statin - repeat lipid panel:annually #VAZQUEZ on CPAP Follow-Up: 6 months, repeat TTE 1 year Thank you for allowing me to participate in the care of this patient. Please reach out with any questions. Christiana Gomez MD Portions of this note were dictated using [employer] speech recognition software. Occasional wrong wordor sound-alike substitutions may have occurred due to the inherent limitations of voice recognition software. Please read the chart carefully and recognize, using context, where the substitutions may have occurred. documented in this encounter Plan of Treatment Upcoming Encounters Date Type Department Care Team (Late st Contact Info) Description 04/14/2024 2:00 PM TRIM CREW SUPERVISOR Office Visit [facility] [address] [facility], [address] [place] [id number] Julio Pulido MD [address] [place] [address] documented as of this encounter Goals Goal Patient Goal Type Associated Problems Recent Progress Patient-Stated? Author Health - patient able to perform ADLs independently General On track(2023 9:49 AM CDT) Dianne Corona RN Note: 12/17/23: Patient stated she is independent with ASL's. Establish Plan for Symptom Monitoring-CHF General On track(2023 11:36 AM TRIM CREW SUPERVISOR) Dianne Corona, RN Note: Patient will recognize [...] Symptom Monitoring-COPD General On track(2023 11:36 AM TRIM CREW SUPERVISOR) Dianne Corona RN Note: Patient will [...] Symptom Monitoring-DM General On track(2023 4:33 PM TRIM CREW SUPERVISOR) Dianne Corona, RN Note: Patient will manage [...] Symptom Monitoring-HTN General On track(2023 4:33 PM TRIM CREW SUPERVISOR) Dianne Corona RN Note: Patient will monitor B/P several times per week , record readings and report to physician or CC if B/P consistently >130/80 Take your medications as prescribed. Follow up with your provider as scheduled. Take your blood pressure at least several times a week if able. documented as of this encounter Visit Diagnoses Diagnosis Hyperlipidemia, unspecified hyperlipidemia type- Primary H/O mechanical aortic valve replacement Heart valve replaced by other means Paroxysmal atrial fibrillation ([facility]) Atrial fibrillation Mitral valve disorder Mitral valve disorders Chronic HFrEF (heart failure with reduced ejection fraction) ([facility]) documented in this encounter Additional Health Concerns Assessment Noted Time PHQ-9 Depression Total Score: 13 023 3:56 PM CDT documented as of this encounter Care Teams Hand Binder Stripper Relationship Specialty Start Date End Date Sanjeev Webster DO [address] [place] [id number] PCP - General FAMILY PRACTICE 09/25/20 Dianen Johnson, RN [address] [place] [address] Procurement Director (Ambulatory) REGISTERED NURSE 08/14/20 documented as of this encounter
--- OUTSIDE RECORDS SUMMARY | 2024-03-15 00:51 | XMS_ITS | Encounter Summary ---
Author Organization [facility] Address [facility] [place] [address] [place] [address] Care Team Providers Care Jelly Maker Name Role Phone Casey Johnson RN Unavailable [phone] Sanjeev Webster DO Primary Care Provider + Reason for Visit * Reason Onset Date Comments Care Management 09/08/2023 Encounter Details Date Type Department Care Team (Late st Contact Info) Description 09/08/2023 Patient Outreach [facility] Family & Internal Medicine [address] [address] Casey Johnson, RN [address] [place] [address] Care Management Social History Tobacco [...] Recorded Patient Health Questionnaire-2 Score 1 08/06/2023 [facility] [...] Assessment Author Status No 08/26/2022 7:46 PM CDIndiana Verdugo RN Active documented as of this encounter Mental Status * Because of a physical, mental, or emotional condition, do you have serious difficulty concentrating, remembering, or making decisions? Answer Entry Date Author Status No 08/26/2022 7:46 PM [place] Call RN Active documented in this encounter Progress Notes * Casey Johnson RN - 09/08/2023 11:28 AM CDT Chronic Care Management: 09/08/23: Left message to return phone call. 09/08/23: Patient returned phone call. See below for details. Patient concerns matters that need addressed: Urgent referral needed: Scheduled to see Dr.Peter Graham in [place] on 09/17/23 at 1:00 PM forleft knee pain. She's requesting an [facility] referral and her medication list faxed to office. 2. Patient scheduled for an INR on 09/17/23 at 1:00 PM. She's requesting to come in at 11:30 am instead before she is seen by . Please inform patient if this time is okay. The above information sent to nursing team marked as high priority. Patient Status: Contacted patient today. Stated she is supposed to receive an event monitor in the mail from Cardiology soon. She is checking her heart rate once or twice per day. Stated on average it's been [id number]. Educated patient on how to accurately check pulse by checking pulse around the same time daily and making sure she is resting for several minutes, sitting down before checking her heart rate. Patient is checking her heart rate with pulse ox monitor. Encouraged to check heart rate if she feels palpitations or not feeling well. Patient verbalizes understanding. Denies any issues with COPD or CHF exacerbations s/s. Encouraged to call at the onset of any changes. Patient plans on starting Tops again on Wednesdays. Tops supports weight-loss in a healthy manner. Patient stated her left knee if really hurting again. She received a cortisone injection and it helped for about a year. She plans on going back to Ortho on 09/17/23. Patient stated Voltaren gel doesn't help at all. Opportunity provided to answer questions. No further needs noted at this time. Gave patient CC direct phone number again to reach CC if she needs anything. Patient wrote down phone number. Plan of Care: guest services coordinator will continue to follow up by [...] Time Provider Department Center 09/17/2023 1:00 PM MG ZIGGY MADSEN NURSE [facility] [place] 10/08/2023 11:20 AM Sanjeev Webster DO [facility] 03/04/2024 1:00 PM Sania Gomez MD [facility] 04/14/2024 2:00 PM Julio Pulido MD [facility] Quality care gaps: Health Maintenance Topic Date Due Annual Medicare Wellness Visit Never done Zoster Vaccines (3 of 3) 02/17/2024 (Originally 01/06/2023) RSV Immunization or 60+ Years (1 - 1-dose 60+ series) 02/17/2024 (Originally 2004) COVID-19 Vaccine (2022- season) 2112 (Originally 11/07/2022) Hemoglobin A1C 02/06/2024 [...] test Chronic anticoagulation Coronary artery disease involving [place] coronary artery of [place] heart without angina pectoris H/O mechanical aortic valve replacement Hypertensive heart disease with congestive heart failure ([facility]) LBBB (left bundle branch block) Myopathy VAZQUEZ (obstructive sleep apnea) Paroxysmal atrial flutter ([facility]) Benign hypertension with CKD (chronic kidney disease) stage III ([facility]) Memory deficits Hearing deficit, bilateral History of cataract extraction, unspecified laterality Vitamin D deficiency Hypercalcemia Chronic frontal sinusitis Constipation, unspecified constipation type Chronic bilateral low back pain without sciatica Iron deficiency anemia, unspecified iron deficiency anemia type Disorder of skin of trunk Anemia Body mass index (BMI) 31.0-31.9, adult 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[facility]) Benign hypertension with stage 3b chronic kidney disease ([facility]) Cobalamin deficiency Compression fracture of thoracic vertebra ([facility]) Depression Diabetic polyneuropathy ([facility]) Disorder of rotator cuff Diverticular disease Dysphagia Elevated troponin Gastroesophageal reflux disease without esophagitis Hyperlipidemia, unspecified hyperlipidemia type Vascular dementia ([facility]) Unknown and unspecified causes of morbidity Syncope, unspecified syncope type Wrist joint pain Requires lifelong warfarin therapy Hyperparathyroidism ([facility]) Presence of prosthetic heart valve Plantar fascial fibromatosis Peripheral neuropathy Parathyroid adenoma Polymyalgia rheumatica ([facility]) Osteoporosis Numbness Muscle cramps Closed stable burst fracture of sixth thoracic vertebra, initial encounter ([facility]) Chest pain Contusion of scalp Knee pain Localized, primary osteoarthritis Osteoarthritis of knee Traumatic closed displaced fracture of distal end of radius Shoulder joint pain Hyperlipidemia associated with type 2 diabetes mellitus ([facility]) Hematoma Anxiety Diastolic heart failure ([facility]) Internal hemorrhoids Leukoencephalopathy Major depression single episode, in partial remission ([facility]) Metacarpal bone fracture Mitral valve disorder Peripheral arterial occlusive disease ([facility]) Primary osteoarthritis involving multiple joints Vision loss COPD (chronic obstructive pulmonary disease) ([facility]) Diarrhea Drug-induced constipation H/O mechanical aortic valve replacement Age-related osteoporosis with current pathological fracture Care Management Physical deconditioning Chronic heart failure with preserved ejection fraction (HFpEF) ([facility]) Paroxysmal atrial fibrillation ([facility]) Hypertension associated with type 2 diabetes mellitus ([facility]) Encounter for prophylactic measures, unspecified Graves' disease Cirrhosis of liver without ascites, unspecified hepatic cirrhosis type ([facility]) Stage 3b chronic kidney disease ([facility]) OLIVE (acute kidney injury) ([facility]) Heart failure with mildly reduced ejection fraction (HFmrEF) ([facility]) Hyperthyroidism Medications: Current Outpatient Medications Medication [...] Patient Time spent with patient (minutes): 20 Time spent performing chart review (minutes): 7 Total time (minutes): 27 CASEY JOHNSON RN I reviewed the patient's status and education provided by CASEY JOHNSON RN. I agree with the findings and recommendations made. Cosigned by Sanjeev Webster DO at 09/08/2023 4:05 PM CDT documented in this encounter Plan of Treatment Upcoming Encounters Date Type Department Care Team (Late st Contact Info) Description 04/14/2024 2:00 PM DEAN FOR STUDENT AFFAIRS Office Visit [facility] Multispecialty Care - [facility] [address] [facility], [address] [place] [address] Julio Pulido MD [address] [place] [address] documented as of this encounter Goals Goal Patient Goal Type Associated Problems Recent Progress Patient-Stated? Author Health - patient able to perform ADLs independently General On track(2023 9:49 AM CDT) Casey Corona RN Note: 12/17/23: Patient stated she is independent with ASL's. Establish Plan for Symptom Monitoring-CHF General On track(2023 11:36 AM DEAN FOR STUDENT AFFAIRS) Casey Corona RN Note: Patient will recognize [...] Symptom Monitoring-COPD General On track(2023 11:36 AM DEAN FOR STUDENT AFFAIRS) Casey Corona RN Note: Patient will recognize [...] Symptom Monitoring-DM General On track(2023 4:33 PM DEAN FOR STUDENT AFFAIRS) Casey Corona RN Note: Patient will manage [...] Symptom Monitoring-HTN General On track(2023 4:33 PM [facility] FOR STUDENT AFFAIRS) Casey Corona RN Note: Patient will monitor [...] disease, without long-term current use of insulin ([facility])- Primary Chronic obstructive pulmonary disease, unspecified COPD type ([facility]) Chronic heart failure with preserved ejection fraction (HFpEF) ([facility]) documented in this encounter Additional Health Concerns Assessment Noted Time PHQ-9 Depression Total Score: 13 023 3:56 PM CDT documented as of this encounter Care Teams Jelly Maker Relationship Specialty Start Date End Date Sanjeev Webster DO [address] [place] [address] PCP - General FAMILY PRACTICE 09/25/20 Casey Johnson, RN [address] [place] [address] Assembler Convertible Top (Ambulatory) REGISTERED NURSE 08/14/20 documented as of this encounter
--- OUTSIDE RECORDS SUMMARY | 2024-03-15 00:51 | XMS_ITS | Encounter Summary ---
Author Organization [facility] Address [facility] [place] [address] [place] [address] Care Team Providers Care Superior Court Justice Name Role Phone Dianne Johnson RN Unavailable [phone] Sanjeev Webster DO Primary Care Provider + Reason for Visit * Reason Comments Anticoagulation Encounter Details Date Type Department Care Team (Late st Contact Info) Description 09/17/2023 11:40 AM CDT Allied Health/Nurse Visit [facility] Medical Group Family & Internal Medicine [id number] [place] [address] Sanjeev Webster DO [facility] [place] [address] Anticoagulation Social History Tobacco Use [...] often do you attend chur ch or nondenominational services? More than 4 times per year [...] documented in this encounter Progress Notes * Chas Staley MA - 09/17/2023 11:40 AM CDTAddended by: [facility] on: 09/17/2023 11:49 AM Modules accepted: Orders documented in this encounter Plan of Treatment Upcoming Encounters Date Type Department Care Team (Late st Contact Info) Description 04/14/2024 2:00 PM DIRECTOR RIVER RESTORATION Office Visit [facility] Medical Group Multispecialty Care - [facility] [address] [facility], [address] [place] [address] Julio Pulido MD 3 [place] [address] documented as of this encounter Goals Goal Patient Goal Type Associated Problems Recent Progress Patient-Stated? Author Health - patient able to perform ADLs independently General On track(2023 9:49 AM CDT) Dianne Corona RN Note: 12/17/23: Patient stated she is independent with ASL's. Establish Plan for Symptom Monitoring-CHF General On track(2023 11:36 AM DIRECTOR RIVER RESTORATION) Dianne Corona RN Note: Patient will recognize [...] Monitoring-COPD General On track(2023 11:36 AM DIRECTOR RIVER RESTORATION) Dianne Corona RN Note: Patient will recognize [...] Monitoring-DM General On track(2023 4:33 PM DIRECTOR RIVER RESTORATION) Dianne Corona RN Note: Patient will manage [...] Monitoring-HTN General On track(2023 4:33 PM DIRECTOR RIVER RESTORATION) Dianne Corona RN Note: Patient will monitor [...] Associated Diagnosis Comments PROTHROMBIN TIME, VENOUS Routine 09/17/2023 11:49 AM CDT Chronic anticoagulation COLLECTION VENOUS BLOOD VENIPUNCTURE Routine 09/17/2023 11:48 AM CDT Chronic anticoagulation COLLECT.CAPILLARY (FNGR,HEEL,EAR) Routine 09/17/2023 11:38 AM CDT Chronic anticoagulation PROTHROMBIN TIME, FINGERSTICK Routine 09/17/2023 Chronic anticoagulation documented in this encounter Results * (ABNORMAL) PROTIME/INR, VENOUS (09/17/2023 11:49 AM CDT) PROTIME 40.5(H) 9.3 - 11.6 SEC 09/17/2023 2:[address] [facility] [place] INR 4.3(H) 0.9 - 1.1 09/17/2023 2:[address] [facility] [place] Comment: TREATMENT OR PROPHYLAXIS AGAINST: ?? THERAPEUTIC RANGE (INR): ?VENOUS THROMBOSIS ? 2.0-3.0 ?PULMONARY EMBOLUS ? 2.0-3.0 ?? MECHANICAL PROSTHETIC VALVES ? 2.5-3.5 09/17/2023 11:4 9 AM CDT us Sanjeev Webster DO LABORATORY Final Re sult [facility] [place] [address] [place] [address], * PROTIME/INR, FINGERSTICK (09/17/2023) INR WHOLE BLOOD 4.60 [facility] Comment:Venous drawn 09/17/2023 us Sanjeev Webster DO LABORATORY Final Re sult [facility] [address] [place] [address], documented in this encounter Visit Diagnoses Diagnosis Chronic anticoagulation- Primary Encounter for long-term (current) use of anticoagulants documented in this encounter Additional Health Concerns Assessment Noted Time PHQ-9 Depression Total Score: 13 023 3:56 PM CDT documented as of this encounter Care Teams Superior Court Justice Relationship Specialty Start Date End Date Sanjeev Webster DO [address] [place] [address] PCP - General FAMILY PRACTICE 09/25/20 Dianne Johnson, RN [address] [place] [address] Pull Over Machine Operator (Ambulatory) REGISTERED NURSE 08/14/20 documented as of this encounter
--- OUTSIDE RECORDS SUMMARY | 2024-03-15 00:51 | XMS_ITS | Encounter Summary ---
Author Organization [facility] Address [facility]. [place], [place] [address] [place] [address] Care Team Providers Care Controller Operations And Hr Manager Name Role Phone Dianne Johnson RN Unavailable [phone] Sanjeev Webster DO Primary Care Provider + Reason for Visit * Reason Onset Date Comments Concerns 08/31/2023 Encounter Details Date Type Department Care Team (Late st Contact Info) Description 08/31/2023 Telephone [facility] Medical Group Family & Internal Medicine [address] [place] [address] Sanjeev Webster DO [address] [place] [address] Concerns Social History Tobacco Use Types Packs/Day [...] How often do you attend chur or islam services? More than 4 times per year 08/26/2022 Do you belong to any clubs o r organizations such as mormonism groups, unions, fraternal or athletic groups, or [...] documented in this encounter Progress Notes * LUCI Ferreira - 09/01/2023 2:45 PM CDT Ok thanks for the update. * Ely Duran RN - 09/01/2023 2:05 PM CDT I called the patient to follow up on her BP. The patient does not recall her BP today but did have an appt today (116/52, HR 68). The patient states that she is feeling good and will keep her appt for Thursday. She had no further questions. Message to Hortensia CHOI. * LUCI Ferreira - 08/31/2023 2:04 PM CDT Does she have any BP readings to see how we can adjust her meds? May have to have her see EP if shehas issue with tachy/amber syndrome? * Dianne Johnson RN - 08/31/2023 10:31 AM CDT Images from the original note were not included. Patient reports HR 135 for the past 3 days. Stated she feels fine. Denies any issues with increasedsob or CP. Of note, Admitted to [facility] on 08/21-08/25 for atrial fib. Faxed hospital notes from [facility] on 08/27/23. documented in this encounter Plan of Treatment Upcoming Encounters Date Type Department Care Team (Late st Contact Info) Description 04/14/2024 2:00 PM TRANSIT BUS OPERATOR Office Visit [facility] Medical Group Multispecialty Care - [facility] [address] [facility], [address] [place] [address] Julio Pulido MD [address] [place] [address] documented as of this encounter Goals Goal Patient Goal Type Associated Problems Recent Progress Patient-Stated? Author Health - patient able to perform ADLs independently General On track(2023 9:49 AM CDT) Dianne Corona RN Note: 12/17/23: Patient stated she is independent with ASL's. Establish Plan for Symptom Monitoring-CHF General On track(2023 11:36 AM TRANSIT BUS OPERATOR) Dianne Corona, RN Note: Patient will [...] Symptom Monitoring-COPD General On track(2023 11:36 AM TRANSIT BUS OPERATOR) Dianne Corona RN Note: Patient will [...] Symptom Monitoring-DM General On track(2023 4:33 PM TRANSIT BUS OPERATOR) Dianne Corona, RN Note: Patient will [...] Symptom Monitoring-HTN General On track(2023 4:33 PM TRANSIT BUS OPERATOR) Dianne Corona, RN Note: Patient will [...] documented as of this encounter Care Teams Controller Operations And Hr Manager Relationship Specialty Start Date End Date Sanjeev Webster DO [address] [place] [address] PCP - General FAMILY PRACTICE 09/25/20 Dianne Johnson RN [address] [place] [address] Stand Up Comedian (Ambulatory) REGISTERED NURSE 08/14/20 documented as of this encounter
--- OUTSIDE RECORDS SUMMARY | 2024-03-15 00:51 | XMS_ITS | Encounter Summary ---
Author Organization [facility] [place] [facility] Address [facility] [place] [address] [place] [address] Care Team Providers Care Iron Launder Operator Name Role Phone Dianne Johnson RN Unavailable [phone] Sanjeev Webster DO Primary Care Provider + Encounter Details Date Type Department Care Team (Latest Contact Info) Description 09/28/2023 Scan HEALTH INFO SRVCS Scanned, Doc Med [...] Recorded Patient Health Questionnaire-2 Score 1 08/06/2023 [facility] - Occupational Stress [...] st Contact Info) Description 04/14/2024 2:00 PM RETREAD MOLD OPERATOR Office Visit [facility] Medical Group Multispecialty Care - [facility] [address] [facility], [address] [place] [address] Julio Pulido MD [address] [place] [address] documented as of this encounter Goals Goal Patient Goal Type Associated Problems Recent Progress Patient-Stated? Author Health - patient able to perform ADLs independently General On track(2023 9:49 AM CDT) Dianne Corona RN Note: 12/17/23: Patient stated she is independent with ASL's. Establish Plan for Symptom Monitoring-CHF General On track(2023 11:36 AM RETREAD MOLD OPERATOR) Dianne Corona RN Note: Patient will [...] Symptom Monitoring-COPD General On track(2023 11:36 AM RETREAD MOLD OPERATOR) Dianne Corona RN Note: Patient will [...] Symptom Monitoring-DM General On track(2023 4:33 PM RETREAD MOLD OPERATOR) Dianne Corona, RN Note: Patient will [...] Symptom Monitoring-HTN General On track(2023 4:33 PM RETREAD MOLD OPERATOR) Dianne Corona, RN Note: Patient will [...] documented as of this encounter Care Teams Iron Launder Operator Relationship Specialty Start Date End Date Sanjeev Webster DO [address] [place] [address] PCP - General FAMILY PRACTICE 09/25/20 Dianne Johnson RN [address] [place] [address] Stove Cleaner (Ambulatory) REGISTERED NURSE 6/8/21 documented as of this encounter
--- OUTSIDE RECORDS SUMMARY | 2024-03-15 00:51 | XMS_ITS | Encounter Summary ---
Author Organization [facility] Address [facility] [place] [address] [place] [address] Care Team Providers Care Sample Sewer Name Role Phone Dianne Johnson RN Unavailable [phone] Sanjeev Webster DO Primary Care Provider + Encounter Details Date Type Department Care Team (Latest Contact Info) Description 10/08/2023 Travel Social History Tobacco Use Types Packs/Day [...] st Contact Info) Description 04/14/2024 2:00 PM BANQUET FOOD SERVER Office Visit [facility] Medical Group Multispecialty Care - [facility] [address] [facility], [address] [place] [address] Julio Pulido MD [address] [place] [address] documented as of this encounter Goals Goal Patient Goal Type Associated Problems Recent Progress Patient-Stated? Author Health - patient able to perform ADLs independently General On track(2023 9:49 AM CDT) Dianne Corona RN Note: 12/17/23: Patient stated she is independent with ASL's. Establish Plan for Symptom Monitoring-CHF General On track(2023 11:36 AM BANQUET FOOD SERVER) Dianne Corona RN Note: Patient will recognize [...] Symptom Monitoring-COPD General On track(2023 11:36 AM BANQUET FOOD SERVER) Dianne Corona RN Note: Patient will recognize [...] Symptom Monitoring-DM General On track(2023 4:33 PM BANQUET FOOD SERVER) Dianne Corona RN Note: Patient will manage [...] Symptom Monitoring-HTN General On track(2023 4:33 PM BANQUET FOOD SERVER) Dianne Corona, RN Note: Patient will monitor [...] documented as of this encounter Care Teams Sample Sewer Relationship Specialty Start Date End Date Sanjeev Webster DO [address] [place] [address] PCP - General FAMILY PRACTICE 09/25/20 Dianne Johnson, RN [address] [place] [address] Education Program Manager (Ambulatory) REGISTERED NURSE 08/14/20 documented as of this encounter
--- OUTSIDE RECORDS SUMMARY | 2024-03-15 00:51 | XMS_ITS | Encounter Summary ---
Author Organization [facility] Address [facility] [place] [address] [place] [address] Care Team Providers Care Railway Signalling Engineer Name Role Phone Dianne Johnson RN Unavailable [phone] Sanjeev Webster DO Primary Care Provider + Encounter Details Date Type Department Care Team (Latest Contact Info) Description 09/17/2023 Travel Social History Tobacco Use Types Packs/Day [...] 08/26/2022 7:46 PM [place] aCll RN Active documented as of this encounter Mental Status * Because of a physical, mental, or emotional condition, do you have serious difficulty concentrating, remembering, or making decisions? Answer Entry Date Author Status No 08/26/2022 7:46 PM [place] Call RN Active documented in this encounter Plan of Treatment Upcoming Encounters Date Type Department Care Team (Late st Contact Info) Description 04/14/2024 2:00 PM LOCK EXPERT Office Visit [facility] Multispecialty Care - [facility] [address] [facility], [address] [place] [address] Julio Pulido MD [address] [place] [address] documented as of this encounter Goals Goal Patient Goal Type Associated Problems Recent Progress Patient-Stated? Author Health - patient able to perform ADLs independently General On track(2023 9:49 AM CDT) Dianne Corona RN Note: 12/17/23: Patient stated she is independent with ASL's. Establish Plan for Symptom Monitoring-CHF General On track(2023 11:36 AM LOCK EXPERT) Dianne Corona RN Note: Patient will recognize [...] Symptom Monitoring-COPD General On track(2023 11:36 AM LOCK EXPERT) Dianne Corona RN Note: Patient will recognize [...] Symptom Monitoring-DM General On track(2023 4:33 PM LOCK EXPERT) Dianne Corona RN Note: Patient will manage [...] Symptom Monitoring-HTN General On track(2023 4:33 PM LOCK EXPERT) Dianne Corona, RN Note: Patient will monitor [...] documented as of this encounter Care Teams Railway Signalling Engineer Relationship Specialty Start Date End Date Sanjeev Webster DO [address] [place] [address] PCP - General FAMILY PRACTICE 09/25/20 Dianne Johnson, RN [address] [place] [address] Head Cleaning Porter (Ambulatory) REGISTERED NURSE 08/14/20 documented as of this encounter
--- OUTSIDE RECORDS SUMMARY | 2024-03-15 00:51 | XMS_ITS | Encounter Summary ---
Author Organization [facility] Address [facility] [facility]. [place], [place] [address] [place] [address] Care Team Providers Care Tool Technician Name Role Phone Dianne Johnson RN Unavailable [phone] Sanjeev Webster DO Primary Care Provider + Reason for Visit * Reason Comments Allied Health Visit Encounter Details Date Type Department Care Team (Latest Contact Info) Description 10/05/2023 11:00 AM CDT Allied Health/Nurse Visit [facility] Family & Internal Medicine [facility] [address] [place] [address] Sanjeev Webster DO [address] [place] [address] Allied Health Visit Social History [...] Recorded Patient Health Questionnaire-2 Score 1 08/06/2023 [facility] of Occupat ional Health - Occupational Stress [...] Progress Notes * Diana Cantrell MA - 10/05/2023 11:00 AM CDT Pt in office today for INR. INR 2.6 today. documented in this encounter Plan of Treatment Upcoming Encounters Date Type Department Care Team (Late st Contact Info) Description 04/14/2024 2:00 PM DIRECTOR OCCUPATIONAL Office Visit [facility] Multispecialty Care - [facility] [address] [facility], [address] [place] [address] Julio Pulido MD [address] [place] [address] documented as of this encounter Goals Goal Patient Goal Type Associated Problems Recent Progress Patient-Stated? Author Health - patient able to perform ADLs independently General On track(2023 9:49 AM CDT) Dianne Corona RN Note: 12/17/23: Patient stated she is independent with ASL's. 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 documented in this encounter Results * PROTIME/INR, FINGERSTICK (10/05/2023) INR WHOLE BLOOD 2.60 MG-S [facility] 10/05/2023 us Sanjeev Webster DO LABORATORY Final Re sult [address] [address], documented in this encounter Visit Diagnoses Diagnosis 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
--- OUTSIDE RECORDS SUMMARY | 2024-03-15 00:51 | XMS_ITS | Encounter Summary ---
Author Organization [facility] Address [facility] [facility] [address] [place] [address] Care Team Providers Care Product Handler Name Role Phone Dianne Johnson RN Unavailable [phone] Sanjeev Webster DO Primary Care Provider + Reason for Visit * Reason Onset Date Comments Information 08/27/2023 [facility]/medical records Encounter Details Date Type Department Care Team (Late st Contact Info) Description 08/27/2023 Telephone [facility], [address] [place] [address] Sania Gomez MD [facility] [address] [place] [address] Information ([facility]/medical records) Social History Tobacco Use Types Packs/Day Years [...] any clubs o r organizations such as baptist groups, unions, fraternal or athletic groups, or [...] Recorded Patient Health Questionnaire-2 Score 1 08/06/2023 [facility] of Occupat ional Health - Occupational Stress [...] documented in this encounter Progress Notes * Humera Kennedy - 08/27/2023 2:07 PM [facility] /Medical [facility] 08/27/2023 [facility], Received: 08/25/23-08/26/23 Adm/Discharge 08/22/23 H&P 08/22/23 ED visit Notes 08/22/23 ECHO 08/21, 08/23, 08/25/23 EKG 08/23,08/24,08/25 Labs 08/22/2023 chest xray Sent to [facility] documented in this encounter Plan of Treatment Upcoming Encounters Date Type Department Care Team (Late st Contact Info) Description 04/14/2024 2:00 PM COAL WASHER Office Visit [facility] Multispecialty Care - [facility] [address] [facility], [address] [place] [phone] Julio Pulido MD [address] [place] [address] documented as of this encounter Goals Goal Patient Goal Type Associated Problems Recent Progress Patient-Stated? Author Health - patient able to perform ADLs independently General On track(2023 9:49 AM CDT) Dianne Corona RN Note: 12/17/23: Patient stated she is independent with ASL's. Establish Plan for Symptom Monitoring-CHF General On track(2023 11:36 AM COAL WASHER) Dianne Corona RN Note: Patient will recognize [...] Monitoring-COPD General On track(2023 11:36 AM COAL WASHER) Dianne Corona RN Note: Patient will recognize [...] Monitoring-DM General On track(2023 4:33 PM COAL WASHER) Dianne Corona RN Note: Patient will manage [...] provider as scheduled. 03/26/23: A1C: 6.2 on 11/6/23. Establish Plan for Symptom Monitoring-HTN General On track(2023 4:33 PM COAL WASHER) No Dianne Johnson RN Note: Patient will [...] documented as of this encounter Care Teams Product Handler Relationship Specialty Start Date End Date Sanjeev Webster DO [address] [place] [address] PCP - General FAMILY PRACTICE 09/25/20 Dianne Johnson, RN [address] [place] [address] Pairer Odds (Ambulatory) REGISTERED NURSE 08/14/20 documented as of this encounter
--- OUTSIDE RECORDS SUMMARY | 2024-03-15 00:51 | XMS_ITS | Encounter Summary ---
Author Organization [facility] Address [facility] [place] [address] [place] [address] Care Team Providers Care Molding Supervisor Name Role Phone Dianne Johnson RN Unavailable [phone] Sanjeev Webster DO Primary Care Provider + Reason for Visit * Reason Comments TCM Pt presents for [facility] f/u x4 days due to tachycardia Encounter Details Date Type Department Care Team (Late st Contact Info) Description 09/01/2023 10:40 AM CDT Office Visit [facility] Medical Group Family & Internal Medicine [address] [address] Sanjeev Webster DO [address] [place] [id number] TCM (Pt presents for [facility] f/u x4 days due to tachycardia ) Social History Tobacco Use Types Packs/Day Years Used Date Smoking Tobacco: Never Passive Smoke Exposure: Past Smokeless Tobacco: Never Tobacco Cessation:Counseling Given: No Comments:non smoker Alcohol Use Standard Drinks/Week Comments [...] any clubs o r organizations such as taoist groups, unions, fraternal or athletic groups, or [...] Health Questionnaire-2 Score 1 08/06/2023 [facility] - Occupational [...] Sign Reading Time Taken Comments Blood Pressure 116/52 09/01/2023 10:47 AM CDT Pulse 68 09/01/2023 10:47 AM CDT Temperature 36.3 ??C (97.3 ??F) 09/01/2023 10:47 AM C DT Respiratory Rate 16 09/01/2023 10:47 AM CDT Oxygen Saturation 95% 09/01/2023 10:47 AM CDT Inhaled Oxygen Concentration - - Weight 84.5 kg (186 lb 3.2 oz) 09/01/2023 10:47 AM CDT Height 165.1 cm (5' 5 ) 09/01/2023 10:47 AM CDT Body Mass Index 30.99 09/01/2023 10:47 AM CDT documented in this encounter [...] documented in this encounter Progress Notes * Zach Brock - 09/01/2023 10:40 AM CDTAddended by: ZACH BROCK on: 09/01/2023 07:05 PM Modules accepted: Orders * Sanjeev Webster DO - 09/01/2023 10:40 AM CDT Images from the original note were not included. GENERAL OFFICE VISIT Encounter Date: 09/01/2023 Chief Complaint: 78-year-old female presents for [facility] (Pt presents for [facility] f/u x4 days due to tachycardia ) History of Present Illness: Transitional Care Note: Pt was admitted on: 08/22/23 Pt was discharged on: 08/26/23 Admit Diagnosis: A Fib with RVR Discharge Diagnosis: See above Initial Nursing contact: See telephone encounter on: 08/27/23 Discharge note from Tad Weathers MD was reviewed Per their summary: DS: Summary Hospital Course Hospital Course: This is a pleasant 78-year-old female with PMH [facility] Lj's mechanical aortic valve replacement with on warfarin, CAD, COPD, sleep apnea on CPAP, dementia, hypertension, hyperlipidemia, xkl-srdsobn-paclwixnf diabetes mellitus,GERD, paroxysmal atrial fibrillation, heart failure preserved ejection fraction,depression, diverticulosis, DJD, CKD stage IIIB. The patient lives at home alone but her daughter handles her medications. The patient presents to [place] with complaints of palpitations since 08/16/2023. Associated with dry cough. Admitted on 08/23/2023 as she was found in AFib with RVR. She was given diltiazem 10 mg IV push x2 on admission. Subsequently return to controlled rate. Her [employer] metoprolol 12.5 mg p.o. PD was increased to 25 mg p.o.b.i.d. however she then developed slow response with ventricular rate in the 40sto 50s. Upon holding the beta-lexy her heart rate came backto the 80s. Patient agreed to be discharged on a low-dose metoprolol succinate 12.5 mg p.o. q.day while monitoring her heart rate and following up with Cardiology outpatient shortly. Her hemoglobin on admission 9.0. Stable between 7.6 and 8.1 thereafter. Approximately year ago was in the 10s. Patient denied start stool/bright red blood per rectum. Her MCV between 94 and 104 therefore likely macrocytic etiology. Folate 14.6. Vitamin B12 274 which is borderline low. Administered IM injection. Discharged on 1000 mcg p.o. q.day. follow-up with Maribell carty/ hematology. She does have a [facility]'s mechanical aortic valve but her retic count was normal. Haptoglobin pending. Patient is asymptomatic and feeling ready to go home. She is stable for discharge on 08/26/2023. She was full code during admission. Social determinants of health screen done there were no triggers. Patient does have heart failure with preserved ejection fraction so ARNI not indicated. (MIPS) Since Discharge: Radha has been doing okay. She reported a HR of 135 the past 3 days without other symptoms. It is WNL on check today. She states she notes her BP will increase considerably when she is more active and is WNL on rest. Pt was referred to hematology, but we can begin management of this and refer accordingly. Pt sounds like she will be starting Prolia with her laryngologist. We do not have records, buts he noted it's a shot at Santos every 6 months. ROS: Review of Systems Constitutional: Negative for fever. Respiratory: Negative for shortness of breath. Cardiovascular: See HPI Gastrointestinal: Negative for abdominal pain. Genitourinary: Negative for dysuria. Medications: Current Outpatient Medications: acetaminophen (TYLENOL) 500 [...] FOR SLEEP, Disp: 15 tablet, Rfl: 0 Blood Glucose Monitoring Suppl (ONE TOUCH [...] mouth once daily, Disp: 30 tablet, Rfl: 0 gabapentin (NEURONTIN) 300 MG capsule, take 1 capsule by mouth three times daily, Disp: 270 capsule, Rfl: 0 Glucose Blood (BLOOD GLUCOSE TEST STRIPS) Strip, 1 Device by Does not apply route daily., Disp: 100strip, Rfl: 3 HYDROcodone-acetaminophen (NORCO) 5-325 MG tablet, Take 1-2 tablets by mouth every 6 (six) hours asneeded for Pain. Indications: Chronic Pain, Disp: 60 tablet, Rfl: 0 iron polysaccharides (NIFEREX) 150 MG capsule, Take 1 capsule (150 mg total) by mouth daily., Disp:30 capsule, Rfl: 2 Lancets (ONETOUCH ULTRASOFT) lancets, 1 each by Other route as needed. Use as instructed, Disp: 100each, Rfl: 3 methIMAzole (TAPAZOLE) 5 MG tablet, Take 1 tablet (5 mg total) by mouth daily., Disp: , Rfl: metoprolol succinate ER (TOPROL-XL) 25 MG 24 hr tablet, Take 0.5 tablets (12.5 mg total) by mouth daily., Disp: , Rfl: omeprazole (PRILOSEC) 40 MG capsule, Take 1 capsule (40 mg total) by mouth daily., Disp: 90 capsule, Rfl: 1 potassium chloride CR (K-TAB) 10 MEQ Tab CR tablet, Take 1 tablet by mouth once daily, Disp: 90 tablet, Rfl: 0 simvastatin (ZOCOR) 10 MG tablet, Take 1 tablet (10 mg total) by mouth nightly at bedtime., Disp: 90 tablet, Rfl: 3 venlafaxine XR (EFFEXOR-XR) 150 MG 24 hr capsule, Take 1 capsule by mouth once daily, Disp: 90 capsule, Rfl: 0 vitamin B-12 (CYANOCOBALAMIN) (CYANOCOBALAMIN) 1000 mcg tablet, Take 1 tablet (1,000 mcg total) by mouth daily., Disp: , Rfl: warfarin (COUMADIN) 2 MG tablet, Take 1 tablet (2 mg total) by mouth daily., Disp: 30 tablet, Rfl: 1 warfarin (COUMADIN) 5 MG tablet, Take 1 tablet (5 mg total) by mouth daily., Disp: 30 tablet, Rfl: 1 docusate sodium (COLACE) 100 MG capsule, Take one by mouth twice daily or as needed for constipation. (Patient not taking: Reported on 09/01/2023), Disp: 30 capsule, Rfl: 0 Semaglutide (OZEMPIC, 0.25 OR 0.5 MG/DOSE, SC), Inject 0.5 mg into the skin once a week., Disp: , Rfl: Current Outpatient Medications on File Prior to [...] as needed for Pain. Indications: Chronic Pain iron polysaccharides (NIFEREX) 150 MG capsule Take [...] Take 1 tablet by mouth once daily simvastatin (ZOCOR) 10 MG tablet Take 1 [...] tablet (5 mg total) by mouth daily. docusate sodium (COLACE) 100 MG capsule Take one by mouth twice daily or as needed for constipation. (Patient not taking: Reported on 09/01/2023) Semaglutide (OZEMPIC, 0.25 OR 0.5 MG/DOSE, SC) Inject 0.5 mg into the skin once a week. No current facility-administered medications on file prior [...] test Chronic anticoagulation Coronary artery disease involving standing rock coronary artery of standing rock heart without angina pectoris H/O mechanical aortic valve replacement Hypertensive heart disease with congestive heart failure ([facility]/HCC) LBBB (left bundle branch block) Myopathy VAZQUEZ (obstructive sleep apnea) Paroxysmal atrial flutter ([facility]/HCC) Benign hypertension with CKD (chronic kidney disease) stage III ([facility]/HCC) Memory deficits Hearing deficit, bilateral History of cataract extraction, unspecified laterality Vitamin D deficiency Hypercalcemia Chronic frontal sinusitis Constipation, unspecified constipation type Chronic bilateral low back pain without sciatica Iron deficiency anemia, unspecified iron deficiency anemia type Disorder of skin of trunk Anemia Body mass index (BMI) 31.0-31.9, adult 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[facility]/HCC) Benign hypertension with stage 3b chronic kidney disease ([facility]/HCC) Cobalamin deficiency Compression fracture of thoracic vertebra ([facility]/HCC) Depression Diabetic polyneuropathy ([facility]/HCC) Disorder of rotator cuff Diverticular disease Dysphagia Elevated troponin Gastroesophageal reflux disease without esophagitis Hyperlipidemia, unspecified hyperlipidemia type Vascular dementia ([facility]/HCC) Unknown and unspecified causes of morbidity Syncope, unspecified syncope type Wrist joint pain Requires lifelong warfarin therapy Hyperparathyroidism ([facility]/HCC) Presence of prosthetic heart valve Plantar fascial fibromatosis Peripheral neuropathy Parathyroid adenoma Polymyalgia rheumatica ([facility]) Osteoporosis Numbness Muscle cramps Closed stable burst fracture of sixth thoracic vertebra, initial encounter ([facility]) Chest pain Contusion of scalp Knee pain Localized, primary osteoarthritis Osteoarthritis of knee Traumatic closed displaced fracture of distal end of radius Shoulder joint pain Hyperlipidemia associated with type 2 diabetes mellitus ([facility]) Hematoma Anxiety Diastolic heart failure ([facility]) Internal hemorrhoids Leukoencephalopathy Major depression single episode, in partial remission ([facility] Metacarpal bone fracture Mitral valve disorder Peripheral arterial occlusive disease ([facility]) Primary osteoarthritis involving multiple joints Vision loss COPD (chronic obstructive pulmonary disease) ([facility]) Diarrhea Drug-induced constipation H/O mechanical aortic valve replacement Age-related osteoporosis with current pathological fracture Care Management Physical deconditioning Chronic heart failure with preserved ejection fraction (HFpEF) ([facility]) Paroxysmal atrial fibrillation ([facility]) Hypertension associated with type 2 diabetes mellitus ([facility]) Encounter for prophylactic measures, unspecified Graves' disease Cirrhosis of liver without ascites, unspecified hepatic cirrhosis type ([facility]) Stage 3b chronic kidney disease ([facility]) OLIVE (acute kidney injury) ([facility]) Heart failure with mildly reduced ejection fraction (HFmrEF) ([facility]) Hyperthyroidism 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 Anxiety Atrial fibrillation with rapid ventricular response ([facility]) 08/22/2020 Atrial flutter ([facility]) Cataract Chronic anticoagulation due to mechanical heart valve Chronic pain Diabetes mellitus ([facility]) H/O mechanical aortic valve replacement 2003 Hypertension [...] 10 min Stress: Stress Concern Present (08/26/2022) [place] [facility] Occupational Health - Occupational Stress Questionnaire Feeling of Stress : To some extent Social Connections: Moderately Isolated (08/26/2022) Social Connection and Isolation Panel [NHANES] Frequency of Communication with Friends and Family: Three times a week Frequency of Social Gatherings with Friends and Family: Three times a week Attends Islam Services: More than 4 times per year [...] partnership data on file Objective: Filed Vitals: 09/01/23 1047 BP: 116/52 Pulse: 68 Resp: 16 Temp: 97.3 ??F (36.3 ??C) TempSrc: Temporal SpO2: 95% Weight: 84.5 kg (186 lb 3.2 oz) Height: 1.651 m (5' 5 ) Physical Exam Vitals and nursing note reviewed. Constitutional: Appearance: She is well-developed. HENT: Head: Normocephalic and atraumatic. Right Ear: External ear normal. Left Ear: External ear normal. Eyes: Conjunctiva/sclera: Conjunctivae normal. Cardiovascular: Rate and Rhythm: Normal rate. Rhythm irregular. Heart sounds: Normal heart sounds. No murmur [...] for this visit: Atrial fibrillation with RVR ([facility]) Anemia, unspecified type - CBC W/DIFF AUTOMATED; Future - VITAMIN B-12; Future - FOLIC ACID SERUM; Future - RETICULOCYTE CT, AUTO; Future - HAPTOGLOBIN, QUANT; Future - LDH, LACTATE DEHYDROGENASE; Future - FERRITIN; Future - IRON SAT PANEL (IRON,IBC,%SAT); Future - SOLUBLE TRANSFERRIN RECEPTOR; Future - PROTIME/INR, VENOUS; Future - VENIPUNC ARM DRAW - COMPREHENSIVE METABOLIC PANEL; Future Chronic anticoagulation - CBC W/DIFF AUTOMATED; Future - VITAMIN B-12; Future - FOLIC ACID SERUM; Future - RETICULOCYTE CT, AUTO; Future - HAPTOGLOBIN, QUANT; Future - LDH, LACTATE DEHYDROGENASE; Future - FERRITIN; Future - IRON SAT PANEL (IRON,IBC,%SAT); Future - SOLUBLE TRANSFERRIN RECEPTOR; Future - PROTIME/INR, VENOUS; Future - VENIPUNC ARM DRAW - COMPREHENSIVE METABOLIC PANEL; Future Chronic heart failure with preserved ejection fraction (HFpEF) ([facility]) B12 deficiency Discussion & Summary: 1. Medications/DME - Continue current medications. Will do B12 injection at next OV. 2. Lab/Diagnostics - See orders. 3. Education - Current treatment discussed and patient education given as appropriate. 4. Referrals - Will defer hematology referral for now; consider if not improving as expected and can do B12 injection at next OV. 5. RTC - 1 month(s) I personally spent a total of 31 minutes on the day of the encounter. This includes gsit-kg-kpnr and bws-bhos-zu-face time I provided on the day of the encounter & excludes time spent performing separately reportable services. Sanjeev Webster DO documented in this encounter Plan of Treatment Upcoming Encounters Date Type Department Care Team (Late st Contact Info) Description 04/14/2024 2:00 PM ENVIRONMENTAL TECH Office Visit [facility] Medical Group Multispecialty Care - [facility] [address] [facility], [address] [place] [address] Julio Pulido MD [address] [place] [address] documented as of this encounter Goals Goal Patient Goal Type Associated Problems Recent Progress Patient-Stated? Author Health - patient able to perform ADLs independently General On track(2023 9:49 AM CDT) Dianne Corona, RN Note: 12/17/23: Patient stated she is independent with ASL's. Establish Plan for Symptom Monitoring-CHF General On track(2023 11:36 AM ENVIRONMENTAL TECH) Dianne Corona, RN Note: Patient will recognize [...] Symptom Monitoring-COPD General On track(2023 11:36 AM ENVIRONMENTAL TECH) Dianne Corona, RN Note: Patient will recognize [...] Symptom Monitoring-DM General On track(2023 4:33 PM ENVIRONMENTAL TECH) Dianne Corona, RN Note: Patient will manage [...] Symptom Monitoring-HTN General On track(2023 4:33 PM ENVIRONMENTAL TECH) Dianne Corona, RN Note: Patient will monitor B/P several times per week , record readings and report to physician or CC if B/P consistently >130/80 Take your medications as prescribed. Follow up with your provider as scheduled. Take your blood pressure at least several times a week if able. documented as of this encounter Procedures Procedure Name Priority Date/Time Associated Diagnosis Comments SOLUBLE TRANSFERRIN RECEPTOR Routine 09/01/2023 11:54 AM CDT Anemia, unspecified type Chronic anticoagulation IRON SAT PANEL (IRON,IBC,%SAT) Routine 09/01/2023 11:54 AM CDT Anemia, unspecified type Chronic anticoagulation VITAMIN B-12 Routine 09/01/2023 11:54 AM CDT Anemia, unspecified type Chronic anticoagulation RETICULOCYTE CT, AUTO Routine 09/01/2023 11:54 AM CDT Anemia, unspecified type Chronic anticoagulation HAPTOGLOBIN, QUANT Routine 09/01/2023 11 :54 AM CDT Anemia, unspecified type Chronic anticoagulation PROTHROMBIN TIME, VENOUS Routine 09/01/2023 11:54 AM CDT Anemia, unspecified type Chronic anticoagulation COMPREHENSIVE METABOLIC PANEL Routine 09/01/2023 11:54 AM CDT Anemia, unspecified type Chronic anticoagulation LDH, LACTATE DEHYDROGENASE Routine 09/01/2023 11:54 AM CDT Anemia, unspecified type Chronic anticoagulation FOLIC ACID SERUM Routine 09/01/2023 11:5 4 AM CDT Anemia, unspecified type Chronic anticoagulation CBC W/DIFF AUTOMATED Routine 09/01/2023 11:54 AM CDT Anemia, unspecified type Chronic anticoagulation FERRITIN Routine 09/01/2023 11:54 AM CDT Anemia, unspecified type Chronic anticoagulation COLLECTION VENOUS BLOOD VENIPUNCTURE Routine 09/01/2023 11:17 AM CDT Anemia, unspecified type Chronic anticoagulation documented in this encounter Results * (ABNORMAL) SOLUBLE TRANSFERRIN RECEPTOR (09/01/2023 11:54 AM CDT) SOLUBLE TRANSFERRIN RECEPTOR 3.01(H) 0.76 - 1.76 mg/L [employer] 09/01/2023 11:5 4 AM CDT 09/03/2023 7:49 AM CDT Narrative Resulting Agency Comment Performing Organization Information: ?Site ID: [id number] ?Name: [facility], ?Address: [address] [place] [id number] ?Director: Brie Ellis MD,PhD,EDNA Sanjeev Webster DO LABORATORY Final Re sult [employer] [facility] [address] [address] [facility] [address], * (ABNORMAL) COMPREHENSIVE METABOLIC PANEL (09/01/2023 11:54 AM CDT) [facility] SODIUM S/P/B 144 136 - 145 MMOL/L 09/02/2023 2:10 PM CDT [facility] POTASSIUM S/P/B 4.0 3.5 - 5.1 MMOL/L 09/02/2023 2:10 PM CDT [facility] CHLORIDE S/P/B 106 98 - 107 MMOL/L 09/02/2023 2:10 PM CDT [facility] CO2 30.5 21 - 32 MMOL/L 09/02/2023 2:10 PM CDT [facility] GLUCOSE 106(H) 70 - 99 MG/DL 09/02/2023 2:10 PM CDT [facility] BUN 25(H) 7 - 18 MG/DL 09/02/2023 2:10 PM CDT [facility] CREATININE S/P/B 1.38(H) 0.55 - 1.02 MG/DL 09/02/2023 2:10 PM CDT [facility] CALCIUM S/P/B 9.7 8.4 - 10.5 MG/DL 09/02/2023 2:10 PM CDT [facility] BILIRUBIN TOTAL S/P/B 0.3 0.2 - 1.0 MG/DL 09/02/2023 2:10 PM CDT [facility] ALKALINE PHOSPHATASE S/P/B 77 55 - 142 U/L 09/02/2023 2:10 PM CDT [facility] AST 15 15 - 37 U/L 09/02/2023 2:10 PM CDT [facility] ALT 14 14 - 59 U/L 09/02/2023 2:10 PM CDT [facility] TOTAL PROTEIN S/P/B 6.7 6.4 - 8.2 G/DL 09/02/2023 2:10 PM CDT [facility] ALBUMIN S/P/B 3.3(L) 3.4 - 5.0 G/DL 09/02/2023 2:10 PM CDT [facility] ANION GAP 7.5 5 - 15 MMOL/L 09/02/2023 2:10 PM CDT [facility] Comment:REFERENCE RANGE NOT ESTABLISHED OSMOLALITY (CALC) 303 MOSM/KG 024 2:10 PM CDT [facility] Comment:REFERENCE RANGE NOT ESTABLISHED GFR ESTIMATE 39(L) >90 ML/MIN/1. 73 M2 09/02/2023 2:10 PM CDT [facility] GFR NOTES GFR REFERENCE S: 09/02/2023 2:10 PM T [facility] Comment: THE ESTIMATED GFR IS CALCULATED USING [...] ml/min/1.73 m2 G5,KIDNEY FAILURE: <15 ml/min/1.73 m2 09/01/2023 11:5 4 AM CDT us Sanjeev Webster DO LABORATORY Final Re sult [facility]ISA [facility] [address] [facility] [place] [address], * (ABNORMAL) PROTIME/INR, VENOUS (09/01/2023 11:54 AM CDT) PROTIME 30.3(H) 9.3 - 11.6 SEC 09/01/2023 7:51 PM CDT [facility] INR 3.2(H) 0.9 - 1.1 09/01/2023 7:51 PM CDT [facility] Comment: TREATMENT OR PROPHYLAXIS AGAINST: ?? THERAPEUTIC RANGE (INR): ?VENOUS THROMBOSIS ? 2.0-3.0 ?PULMONARY EMBOLUS ? 2.0-3.0 ?? MECHANICAL PROSTHETIC VALVES ? 2.5-3.5 09/01/2023 11:5 4 AM CDT Sanjeev Webster DO LABORATORY Final Re sult Performing Organization Address [facility] de Phone Number [facility] [address] [place] [address], * (ABNORMAL) IRON SAT PANEL (IRON,IBC,%SAT) (09/01/2023 11:54 AM CDT) [facility] IRON 316(H) 50 - 170 MCG/DL 09/02/2023 2:10 PM CDT [facility] IRON BINDING CAPACITY 378 250 - 450 MCG/DL 09/02/2023 2:10 PM CDT [facility] IRON SATURATION 84 % 2:10 PM CDT [facility] Comment:REFERENCE RANGE NOT ESTABLISHED 09/01/2023 11:5 4 AM CDT Sanjeev Webster DO LABORATORY Final Re sult Performing Organization Address [facility]/State/ZIP Co de Phone Number [facility] [address] [place] [address], * FERRITIN (09/01/2023 11:54 AM CDT) FERRITIN 20.0 8 - 252 NG/ML 09/02/2023 2:10 PM CDT [facility] 09/01/2023 11:5 4 AM CDT Sanjeev Webster DO LABORATORY Final Re sult Performing Organization Address [facility] Co de Phone Number [facility] [address] [place] [address], * LDH, LACTATE DEHYDROGENASE (09/01/2023 11:54 AM CDT) LDH 233 84 - 246 UNITS/L 09/01/2023 9:00 PM CDT [facility] 09/01/2023 11:5 4 AM CDT Sanjeev Webster DO LABORATORY Final Re sult Performing Organization Address [facility] Co de Phone Number [facility] [address] [place] [address], [phone] * (ABNORMAL) HAPTOGLOBIN, QUANT (09/01/2023 11:54 AM CDT) HAPTOGLOBIN 10.1(L) 30.0 - 200.0 MG/DL 09/01/2023 9:16 PM CDT [facility] 09/01/2023 11:5 4 AM CDT Sanjeev Webster DO LABORATORY Final Re sult [facility] [address] [place] [address], [phone] * (ABNORMAL) RETICULOCYTE CT, AUTO (09/01/2023 11:54 AM CDT) RETICULOCYTE COUNT 2.4(H) 0.6 - 2.3 % 09/01/2023 8:50 PM CDT [facility] ABSOLUTE RETICULOCYTE 0.08 0.02 - 0.10 x10'6/uL 09/01/2023 8:50 PM CDT [facility] IMMATURE RETIC FRACTION 34.3(H) 3.0 - 15.9 % 09/01/2023 8:50 PM CDT [facility] RETIC HGB 26.8(L) 28.0 - 35.0 PG 09/01/2023 8:50 PM CDT [facility] 09/01/2023 11:5 4 AM CDT Sanjeev Webster DO LABORATORY Final Re sult [facility] [address] [place] [address], [phone] * FOLIC ACID SERUM (09/01/2023 11:54 AM CDT) Pathologist [facility] FOLATE 18.9 8.6 - 58.9 NG/ML 09/01/2023 8:16 PM CDT [facility] 09/01/2023 11:5 4 AM CDT Sanjeev Webster DO LABORATORY Final Re sult [facility] [address] [place] [address], [place] [phone] * VITAMIN B-12 (09/01/2023 11:54 AM CDT) Pathologist [facility] VITAMIN B12 S/P/B 860 193 - 986 PG/ML 09/02/2023 2:10 PM CDT [facility] 09/01/2023 11:5 4 AM CDT Sanjeev Webster DO LABORATORY Final Re sult [facility] [address] [place] [address], [place] [phone] * (ABNORMAL) CBC W/DIFF AUTOMATED (09/01/2023 11:54 AM CDT) Pathologist [facility] WBC 6.71 4.00 - 10.80 x10'3/uL 09/01/2023 7:47 PM CDT [facility] RBC 3.12(L) 4.10 - 5.40 x10'6/uL 09/01/2023 7:47 PM CDT [facility] HGB 8.8(L) 12.0 - 16.0 G/DL 09/01/2023 7:47 PM CDT [facility] HCT 29.7(L) 36.0 - 47.0 % 09/01/2023 7:47 PM CDT [facility] MCV 95.2 78.0 - 100.0 FL 09/01/2023 7:47 PM CDT [facility] MCH 28.2 27.0 - 31.0 PG 09/01/2023 7:47 PM CDT [facility] MCHC 29.6(L) 33.0 - 36.0 G/DL 09/01/2023 7:47 PM CDT [facility] RDW 15.6(H) 11.5 - 14.5 % 09/01/2023 7:47 PM CDT [facility] PLT 303 150 - 350 x10'3/uL 09/01/2023 7:47 PM CDT -[facility] MPV 12.8(H) 7.4 - 10.4 FL 09/01/2023 7:47 PM CDT [facility] DIFFERENTIAL TYPE AUTOMATED DIFFERENTIAL 09/01/2023 7:47 PM CDT [facility] NEUTROPHILS % 67.4 % 09/01/2023 7:47 PM CDT [facility] LYMPHOCYTES % 16.4 % 09/01/2023 7:47 PM CDT [facility] MONOCYTES % 11.5 % 09/01/2023 7:47 PM CDT [facility] EOSINOPHILS % 3.7 % 09/01/2023 7:47 PM CDT [facility] BASOPHILS % 0.9 % 09/01/2023 7:47 PM CDT [facility] IMMATURE GRANS % 0.1 % 09/01/2023 7:47 PM CDT -[facility] ABS. NEUTROPHILS 4.52 1.60 - 8.30 x10'3/uL 09/01/2023 7:47 PM CDT [facility] ABS. LYMPHOCYTES 1.10 0.80 - 4.70 x10'3/uL 09/01/2023 7:47 PM CDT [facility] ABS. MONOCYTES 0.77 0.00 - 1.50 x10'3/uL 09/01/2023 7:47 PM CDT [facility] ABS. EOSINOPHILS 0.25 0.00 - 0.40 x10'3/uL 09/01/2023 7:47 PM CDT [facility] ABS. BASOPHILS 0.06 0.00 - 0.20 x10'3/uL 09/01/2023 7:47 PM CDT [facility] ABS. IMMATURE GRANULOCYTES 0.01 0.00 - 0.03 x10'3/uL 09/01/2023 7:47 PM CDT [facility] 09/01/2023 11:5 4 AM CDT Sanjeev Webster DO LABORATORY Final Re sult [facility] [address] [facility] [place] [address], documented in this encounter Visit Diagnoses Diagnosis Atrial fibrillation with RVR ([facility])- Primary Atrial fibrillation Anemia, unspecified type Chronic anticoagulation Encounter for long-term (current) use of anticoagulants Chronic heart failure with preserved ejection fraction (HFpEF) ([facility]) B12 deficiency Other B-complex deficiencies documented in this encounter Additional Health Concerns Assessment Noted Time PHQ-9 Depression Total Score: 13 023 3:56 PM CDT documented as of this encounter Care Teams Molding Supervisor Relationship Specialty Start Date End Date Sanjeev Webster DO [address] [place] [address] PCP - General FAMILY PRACTICE 09/25/20 Dianne Johnson, RN [address] [place] [address] Hair Designer (Ambulatory) REGISTERED NURSE 08/14/20 documented as of this encounter
--- OUTSIDE RECORDS SUMMARY | 2024-03-15 00:51 | XMS_ITS | Encounter Summary ---
Author Organization [facility] Address [facility]. [place], [place] [address] [place] [address] Care Team Providers Care Digital Sales Representative Name Role Phone Dianne Johnson RN Unavailable [phone] Sanjeev Webster DO Primary Care Provider + Reason for Visit * Reason Onset Date Comments Anticoagulation 09/21/2023 Encounter Details Date Type Department Care Team (Late st Contact Info) Description 09/21/2023 Telephone [facility] Family & Internal Medicine [address] [place] [address] Sanjeev Webster DO [facility] [place] [address] Anticoagulation Social History Tobacco Use [...] Recorded Patient Health Questionnaire-2 Score 1 08/06/2023 [facility] of Occupat ional Health - Occupational Stress [...] Progress Notes * Yenifer Ingram MA - 09/21/2023 2:27 PM CDT Spoke with patient and she is scheduled for 09/22/2023 at 11:20AM * Sanjeev Webster DO - 09/21/2023 10:13 AM CDT That's fine. * Yenifer Ingram MA - 09/21/2023 9:35 AM CDT The patient called in stating she cut her hand on a cereal box yesterday. The patient states the cut did not bleed much and she is concerned it is because her blood is to thick. The patient would like INR done sooner if needed. She states the cut is no deeper than a normal paper cut. The patient iscurrently due for her next A1c on 09/27. Please advise. documented in this encounter Plan of Treatment Upcoming Encounters Date Type Department Care Team (Late st Contact Info) Description 04/14/2024 2:00 PM PLAYER PIANO TECHNICIAN Office Visit [facility] Multispecialty Care - [facility] 3 [facility], [address] [place] [address] Julio Pulido MD [address] [place] [address] documented as of this encounter Goals Goal Patient Goal Type Associated Problems Recent Progress Patient-Stated? Author Health - patient able to perform ADLs independently General On track(2023 9:49 AM CDT) Dianne Corona RN Note: 12/17/23: Patient stated she is independent with ASL's. Establish Plan for Symptom Monitoring-CHF General On track(2023 11:36 AM PLAYER PIANO TECHNICIAN) Dianne Corona, RN Note: Patient will recognize [...] Symptom Monitoring-COPD General On track(2023 11:36 AM PLAYER PIANO TECHNICIAN) Dianne Corona, RN Note: Patient will recognize [...] Symptom Monitoring-DM General On track(2023 4:33 PM PLAYER PIANO TECHNICIAN) Dianne Corona RN Note: Patient will [...] Symptom Monitoring-HTN General On track(2023 4:33 PM PLAYER PIANO TECHNICIAN) No Dianne Johnson, RN Note: Patient will [...] as of this encounter Care Teams Digital Sales Representative Relationship Specialty Start Date End Date Sanjeev Webster DO [address] [place] [address] PCP - General FAMILY PRACTICE 09/25/20 Dianne Johnson, RN [address] [place] [address] Fabricator Assembler Metal Products (Ambulatory) REGISTERED NURSE 08/14/20 documented as of this encounter
--- OUTSIDE RECORDS SUMMARY | 2024-03-15 00:51 | XMS_ITS | Encounter Summary ---
Author Organization [facility] Address [facility]. [place], [place] [address] [place] [address] Care Team Providers Care Wind Tunnel Mechanic Name Role Phone Dianne Johnson RN Unavailable [phone] Sanjeev Montez DO Primary Care Provider + Reason for Visit * Reason Onset Date Comments Referral 09/04/2023 Encounter Details Date Type Department Care Team (Late st Contact Info) Description 09/04/2023 Telephone [facility] Family & Internal Medicine [address] [place] [address] Sanjeev Montez DO [address] [place] [address] Referral Social History Tobacco Use Types Packs/Day [...] [facility] of Occupat ional Health [...] Progress Notes * Yenifer Ingram MA - 09/04/2023 12:24 PM CDT Referral placed * Sanjeev Montez DO - 09/04/2023 11:29 AM CDT That's fine. * Yenifer Ingram MA - 09/04/2023 9:09 AM CDT Referral pended. Please approve. The patient called for a referral to the following physician: Is this a new consult:No Dr's name: Dr. Tung Chavez Specialty: cancer care/infusion center Reason for referral (diagnosis): M81.0 Phone number [phone] Fax number: [phone] Insurance: [facility] Appointment: [facility] # [id number] Requesting referral for a whole year Last office visit at this office: Last visit with SANJEEV MONTEZ in FAMILY PRACTICE was on: 09/01/2023 in [facility] Future appointment scheduled: Future Appointments Date Time Provider Department [place] 09/04/2023 1:00 PM Sania Gomez MD [facility] 09/17/2023 1:00 PM [facility] NURSE [facility] 10/08/2023 11:20 AM Sanjeev Montez DO [facility] 04/14/2024 2:00 PM [facility] documented in this encounter Plan of Treatment Upcoming Encounters Date Type Department Care Team (Late st Contact Info) Description 04/14/2024 2:00 PM ACQUISITION CONSULTANT Office Visit [facility] Multispecialty Care - [facility] 3 [facility], [address] [place] [address] Julio Pulido MD [address] [place] [address] documented as of this encounter Goals Goal Patient Goal Type Associated Problems Recent Progress Patient-Stated? Author Health - patient able to perform ADLs independently General On track(2023 9:49 AM CDT) Dianne Corona, RN Note: 12/17/23: Patient stated she is independent with ASL's. Establish Plan for Symptom Monitoring-CHF General On track(2023 11:36 AM ACQUISITION CONSULTANT) Dianne Corona, RN Note: Patient will recognize [...] Symptom Monitoring-COPD General On track(2023 11:36 AM ACQUISITION CONSULTANT) Dianne Corona, RN Note: Patient will recognize [...] Symptom Monitoring-DM General On track(2023 4:33 PM ACQUISITION CONSULTANT) Dianne Corona RN Note: Patient will manage [...] Symptom Monitoring-HTN General On track(2023 4:33 PM ACQUISITION CONSULTANT) Dianne Corona, RN Note: Patient will monitor [...] documented as of this encounter Care Teams Wind Tunnel Mechanic Relationship Specialty Start Date End Date Sanjeev Montez DO [address] [place] [address] PCP - General FAMILY PRACTICE 09/25/20 Dianne Johnson RN [address] [place] [address] Ceramic Engineer (Ambulatory) REGISTERED NURSE 08/14/20 documented as of this encounter
--- OUTSIDE RECORDS SUMMARY | 2024-03-15 00:51 | XMS_ITS | Encounter Summary ---
Author Organization [facility] Address [facility]6 [place] [address] [place] [address] Care Team Providers Care Credentialing Manager Name Role Phone Dianne Johnson RN Unavailable [phone] Sanjeev Webster DO Primary Care Provider + Reason for Referral * Imaging (Routine) - Closed Specialty Diagnoses / Procedures Referred By Contac t Referred To Contact Cardiology Diagnoses Bradycardia Procedures CLINIC - HOLTER MONITOR - ECG UP TO 48 HRS,COMPLETE Sania Gomez MD [facility] [address] [place] [address] Phone: tel: fax: Referral ID Status Reason Start Date Expiration Date Visits Re quested Visits Authorized [id number] Closed 09/15/2023 09/14/2024 1 1 Encounter Details Date Type Department Care Team (Late st Contact Info) Description 09/15/2023 Orders Only [facility] [facility], [address] [address] Sania Gomez MD [facility] [address] [place] [address] Social History Tobacco Use Types Packs/Day Years [...] week 08/26/2022 How often do you attend [facility] or taoism services? More than 4 times per year 08/26/2022 Do you belong to any clubs o r organizations such as jew groups, unions, fraternal or athletic groups, or [...] Recorded Patient Health Questionnaire-2 Score 1 08/06/2023 [facility] of Occupat ional Health - Occupational Stress [...] st Contact Info) Description 04/14/2024 2:00 PM GENETIC SUPERVISOR Office Visit [facility] Multispecialty Care - [address], [address] [place] [address] Julio Pulido MD [address] [place] [address] documented as of this encounter Goals Goal Patient Goal Type Associated Problems Recent Progress Patient-Stated? Author Health - patient able to perform ADLs independently General On track(2023 9:49 AM CDT) Dianne Corona, RN Note: 12/17/23: Patient stated she is independent with ASL's. Establish Plan for Symptom Monitoring-CHF General On track(2023 11:36 AM GENETIC SUPERVISOR) Dianne Corona, RN Note: Patient will [...] Symptom Monitoring-COPD General On track(2023 11:36 AM GENETIC SUPERVISOR) Dianne Corona RN Note: Patient will [...] Symptom Monitoring-DM General On track(2023 4:33 PM GENETIC SUPERVISOR) Dianne Corona RN Note: Patient will [...] Symptom Monitoring-HTN General On track(2023 4:33 PM GENETIC SUPERVISOR) No Johnson, Dianne R, RN Note: Patient will monitor B/P several times per week , record readings and report to physician or CC if B/P consistently >130/80 Take your medications as prescribed. Follow up with your provider as scheduled. Take your blood pressure at least several times a week if able. documented as of this encounter Results * CLINIC - HOLTER MONITOR - ECG UP TO 48 HRS,COMPLETE (10/14/2023 4:30 PM CDT) [facility] - 10/14/2023 4:30 PM CDT [address] [place], [place] ??[address] Phone: ?? Fax: ?? PEST CONTROL PILOT REPORT PATIENT NAME: ??Radha Huynh : ??1945 DATE OF TESTIN10/05/2023-10/07/2023 TYPE OF MONITOR: Mobile Cardiac Telemetry (MCT) PCP: ??Sanjeev Webster, DO INTERPRETING POLITICAL RESEARCHER: Sania Gomez MD INDICATION: ??A. fib FINDINGS: [...] Sania Gomez MD PROCEDURES Final Resul t [facility] documented in this encounter Visit Diagnoses Diagnosis Bradycardia- Primary Other specified cardiac dysrhythmias Bradycardia Other specified cardiac dysrhythmias documented in this encounter Additional Health Concerns Assessment Noted Time PHQ-9 Depression Total Score: 13 023 3:56 PM CDT documented as of this encounter Care Teams Credentialing Manager Relationship Specialty Start Date End Date Sanjeev Webster DO [address] [place] [address] PCP - General FAMILY PRACTICE 09/25/20 Dianne Johnson, RN [address] [place], [place] [address] Interactive Multimedia Designer (Ambulatory) REGISTERED NURSE 08/14/20 documented as of this encounter
--- OUTSIDE RECORDS SUMMARY | 2024-03-15 00:51 | XMS_ITS | Encounter Summary ---
Author Organization [facility] Address [facility] [place] [address] [place] [address] Care Team Providers Care Manual Tester Name Role Phone Dianne Johnson RN Unavailable [phone] Sanjeev Webster DO Primary Care Provider + Reason for Referral * Consultation (Urgent) - Authorized Specialty Diagnoses / Procedures Referred By Ian malagon Referred To Contact ORTHOPAEDICS Diagnoses Left knee pain Procedures OFFICE/OUTPATIENT NEW LOW MDM 30-44 MINUTES OFFICE/OUTPT VISIT,NEW,LEVL IV OFFICE/OUTPT VISIT,NEW,LEVL V OFFICE/OUTPT VISIT,EST,LEVL III OFFICE/OUTPT VISIT,EST,LEVL IV OFFICE/OUTPT VISIT,EST,LEVL V Sanjeev Webster DO [address] [place] [address] Phone: tel: fax: Adiel Graham MD [address] [place] [address] Phone: tel: fax: Referral ID Status Reason Start Date Expiration Date Visits Requested Visits Authorized [id number] Authorized Specialty Services 09/09/2023 04/08/2024 6 6 Scheduling Instructions Patient has appt on 09/17/23 Reason for Visit * Reason Onset Date Comments Referral 09/08/2023 Appointment Request 09/08/2023 Encounter Details Date Type Department Care Team (Late st Contact Info) Description 09/08/2023 Telephone [facility] Family & Internal Medicine [facility] [address] [place] [address] Abiodun Webstermaribel Leon DO [address] [place], [place] [id number] Referral; Appointment Request Social History Tobacco Use Types [...] Recorded Patient Health Questionnaire-2 Score 1 08/06/2023 [facility] [place] of Occupat ional Health - Occupational Stress [...] Notes * Yenifer Wolf MA - 09/08/2023 2:41 PM CDTAddended by: YENIFER WOLF on: 09/08/2023 02:41 PM Modules accepted: Orders * Yenifer Wolf MA - 09/08/2023 2:39 PM CDT Spoke with patient and informed her the referral has been placed. The patient v/u and requested a medication list be faxed to their office. Fax sent. * Sanjeev Webster DO - 09/08/2023 2:05 PM CDT Yes, that's fine. * Yenifer Wolf MA - 09/08/2023 1:57 PM CDT Please advise on ortho referral. INR appt has been changed. * Dianne Johnson RN - 09/08/2023 12:11 PM CDT Please address the following: Urgent referral needed: Scheduled to see Dr.Peter Graham in [place] on 09/17/23 at 1:00 PM forleft knee pain. She's requesting an [facility] referral and her medication list faxed to office. 2. Patient scheduled for an INR on 09/17/23 at 1:00 PM. She's requesting to come in at 11:30 am instead before she is seen by . Please inform patient if this time is okay. Thank you. documented in this encounter Plan of Treatment Upcoming Encounters Date Type Department Care Team (Late st Contact Info) Description 04/14/2024 2:00 PM MACHINE CLOTH TRIMMER Office Visit [facility] Multispecialty Care - [facility] 3 [facility], [address] [place] [phone] Julio Pulido MD [address] [place] [address] Scheduled Referrals Name Type Priority Associated Diagnoses Orde r Schedule Ambulatory referral to Orthopedics (OTHER) Referral Routine Left knee pain Ordered: 09/08/2023 documented as of this encounter Goals Goal Patient Goal Type Associated Problems Recent Progress Patient-Stated? Author Health - patient able to perform ADLs independently General On track(2023 9:49 AM CDT) Dianne Corona RN Note: 12/17/23: Patient stated she is independent with ASL's. Establish Plan for Symptom Monitoring-CHF General On track(2023 11:36 AM MACHINE CLOTH TRIMMER) Dianne Corona, RN Note: Patient will recognize [...] Monitoring-COPD General On track(2023 11:36 AM MACHINE CLOTH TRIMMER) Dianne Corona RN Note: Patient will recognize [...] Monitoring-DM General On track(2023 4:33 PM MACHINE CLOTH TRIMMER) Dianne Corona RN Note: Patient will manage [...] Monitoring-HTN General On track(2023 4:33 PM MACHINE CLOTH TRIMMER) No Dianne Johnson, RN Note: Patient will monitor B/P several times per week , record readings and report to physician or CC if B/P consistently >130/80 Take your medications as prescribed. Follow up with your provider as scheduled. Take your blood pressure at least several times a week if able. documented as of this encounter Visit Diagnoses Diagnosis Left knee pain- Primary Pain in joint, lower leg documented in this encounter Additional Health Concerns Assessment Noted Time PHQ-9 Depression Total Score: 13 023 3:56 PM CDT documented as of this encounter Care Teams Manual Tester Relationship Specialty Start Date End Date Sanjeev Webster DO [address] [place] [address] PCP - General FAMILY PRACTICE 09/25/20 Dianne Johnson, RN [address] [place] [address] Origination Specialist (Ambulatory) REGISTERED NURSE 08/14/20 documented as of this encounter
--- OUTSIDE RECORDS SUMMARY | 2024-03-15 00:52 | XMS_ITS | Encounter Summary ---
Author Organization [facility] Address [facility] [place] [address] [place] [address] Care Team Providers Care Tug Master Name Role Phone Dianne Johnson RN Unavailable [phone] Sanjeev Webster DO Primary Care Provider + Reason for Referral * Imaging (Routine) - Closed Specialty Diagnoses / Procedures Referred By Ian malagon Referred To Contact RADIOLOGY Diagnoses Neck pain Procedures MRI CERV SPINE WO Devan Velazquez MD [address] [place] [address] Phone: tel: fax: Referral ID Status Reason Start Date Expiration Date Visits Re quested Visits Authorized [id number] Closed MRI 02/09/2023 1 1 * Imaging (Routine) - Closed Specialty Diagnoses / Procedures Referred By Ian malagon Referred To Contact RADIOLOGY Diagnoses Low back pain Procedures MRI LUMB SPINE WO CON Devan Pressley MD [address] [place] [address] Phone: tel: fax: Referral ID Status Reason Start Date Expiration Date Visits Re quested Visits Authorized [id number] Closed 06/18/2023 09/16/2023 1 1 Reason for Visit * Imaging (Routine) - Closed Specialty Diagnoses / Procedures Referred By Ian malagon Referred To Contact RADIOLOGY Diagnoses Low back pain Procedures MRI LUMB SPINE WO CON Devan Pressley MD [address] [place] [address] Phone: tel: fax: Referral ID Status Reason Start Date Expiration Date Visits Re quested Visits Authorized [id number] Closed 06/18/2023 09/16/2023 1 1 Encounter Details Date Type Department Care Team (Latest Contact Info) Description 08/11/2023 10:20 AM CDT - 08/11/2023 11:59 PM CDT Hospital Encounter [facility] MRI [address] [place] [address] Devan Pressley MD [address] [place] [address] Discharge Disposition: Home or Self Care (Routine [...] Health Questionnaire-2 Score 1 08/06/2023 [facility] - [...] No more then 2500 mg per day. 1 albuterol sulfate HFA 108 (90 Base) MCG/ACT inhalerIndications:C hronic obstructive pulmonary disease, unspecified COPD type ([facility]) INHALE 2 PUFFS BY MOUTH EVERY 6 HOURS NEEDED FOR WHEEZING 18 g 5 3 Blood Glucose Monitoring Suppl (ONE TOUCH ULTRA 2) w/Device KitIndications:Type 2 diabetes mellitus with stage 3b chronic kidney disease, without long-term current use of insulin ([facility]) 1 Device by Does not apply route daily. 1 kit 3 Cholecalciferol (VITAMIN D3) 25 MCG (1000 UT) Cap Take 1 capsule (1,000 Units total) by mouth daily. cinacalcet (SENSIPAR) 30 MG tablet Take 0.5 tablets (15 mg total) by mouth daily. 4 Glucose Blood (BLOOD GLUCOSE TEST STRIPS) StripIndications:Typ e 2 diabetes mellitus with stage 3b chronic kidney disease, without long-term current use of insulin ([facility]) 1 Device by Does not apply route daily. 100 strip 3 3 Lancets (ONETOUCH ULTRASOFT) lancetsIndications:T ype 2 diabetes mellitus with stage 3b chronic kidney disease, without long-term current use of insulin ([facility]) 1 each by Other route as needed. Use as instructed 100 each 3 3 methIMAzole (TAPAZOLE) 5 MG tablet Take 1 tablet (5 mg total) by mouth daily. 4 simvastatin (ZOCOR) 10 MG tabletIndications:Hy perlipidemia associated with type 2 diabetes mellitus ([facility] HHS/HCC) Take 1 tablet (10 mg total) by mouth nightly at bedtime. 90 tablet 3 3 warfarin (COUMADIN) 2 MG tabletIndications:Ch ronic anticoagulation Take 1 tablet (2 mg total) by mouth daily. 30 tablet 1 4 ALPRAZolam (XANAX) 0.5 MG tabletIndications:An xiety TAKE 1/2 (ONE-HALF) TABLET BY MOUTH NIGHTLY NEEDED FOR SLEEP 15 tablet 4 09/16/19 24 docusate sodium (COLACE) 100 MG capsuleIndications:C onstipation Take one by mouth twice daily or as needed for constipation. 30 capsule 4 11/19/19 24 furosemide (LASIX) 20 MG tabletIndications:Hy pertensive heart disease with congestive heart failure ([facility]/HCC) Take 1 tablet by mouth once daily 30 tablet 4 08/27/19 24 gabapentin (NEURONTIN) 300 MG capsuleIndications:C hronic low back pain, unspecified back pain laterality, unspecified whether sciatica present take 1 capsule by mouth three times daily 270 capsule 4 08/27/19 24 HYDROcodone-acetamin ophen (NORCO) 5-325 MG tabletIndications:Ch ronic Pain Take 1-2 tablets by mouth every 6 (six) hours as needed for Pain. Indications: Chronic Pain 60 tablet 4 09/08/19 24 iron polysaccharides (NIFEREX) 150 MG capsuleIndications:I elida deficiency anemia, unspecified iron deficiency anemia type Take 1 capsule (150 mg total) by mouth daily. 30 capsule 2 3 12/08/19 24 metoprolol tartrate (LOPRESSOR) 25 MG tabletIndications:Ch ronic heart failure with preserved ejection fraction (HFpEF) ([facility]/HCC) Take 0.5 tablets (12.5 mg total) by mouth 2 (two) times daily. 90 tablet 3 3 08/19/19 24 omeprazole (PRILOSEC) 40 MG capsuleIndications:G ERD (gastroesophageal reflux disease) Take 1 capsule (40 mg total) by mouth daily. 90 capsule 1 4 11/24/19 24 potassium chloride CR (K-TAB) 10 MEQ Tab CR tabletIndications:Hy pokalemia Take 1 tablet by mouth once daily 90 tablet 4 08/27/19 24 predniSONE (DELTASONE) 20 MG tabletIndications:Kn ee pain Take 3 tablets for three days, then take 2 tablets for three days, then take 1 tablet for three days 18 tablet 4 09/01/19 24 traMADol (ULTRAM) 50 MG tablet Take 0.5 tablets (25 mg total) by mouth every 6 (six) hours as needed for Pain. tab 4 09/01/19 24 TRULICITY 1.5 MG/0.5ML injectionIndications :Type 2 diabetes mellitus with stage 3b chronic kidney disease, without long-term current use of insulin (CMS/HCC HHS/HCC) inject 1 syringe subcutaneously once a week 12 mL 4 09/01/19 24 venlafaxine XR (EFFEXOR-XR) 150 MG 24 hr capsuleIndications:C urrent mild episode of major depressive disorder without prior episode (CMS/HCC) Take 1 capsule by mouth once daily 90 capsule 4 08/27/19 24 warfarin (COUMADIN) 5 MG tabletIndications:Lo ng term (current) use of anticoagulants,H/O mechanical aortic valve replacement Take 1 tablet (5 mg total) by mouth daily. 30 tablet 1 4 11/24/19 24 documented as of this encounter Plan of Treatment Upcoming Encounters Date Type Department Care Team (Late st Contact Info) Description 04/14/2024 2:00 PM COFFEE ATTENDANT Office Visit [facility] - [facility] [address] [facility], [address] [place] [id number] Julio Pulido MD [address] [place] [address] documented as of this encounter Goals Goal Patient Goal Type Associated Problems Recent Progress Patient-Stated? Author Health - patient able to perform ADLs independently General On track(2023 9:49 AM CDT) No Dianne Johnson RN Note: 12/17/23: Patient stated she is independent with ASL's. Establish Plan for Symptom Monitoring-CHF General On track(2023 11:36 AM COFFEE ATTENDANT) Dianne Corona, RN Note: Patient will recognize [...] Symptom Monitoring-COPD General On track(2023 11:36 AM COFFEE ATTENDANT) Dianne Corona RN Note: Patient will [...] Symptom Monitoring-DM General On track(2023 4:33 PM COFFEE ATTENDANT) Dianne Corona RN Note: Patient will [...] Symptom Monitoring-HTN General On track(2023 4:33 PM COFFEE ATTENDANT) Dianne Corona RN Note: Patient will monitor B/P several times per week , record readings and report to physician or CC if B/P consistently >130/80 Take your medications as prescribed. Follow up with your provider as scheduled. Take your blood pressure at least several times a week if able. documented as of this encounter Procedures Procedure Name Priority Date/Time Associated Diagnosis Comments MRI CERV SPINE WO CON Routine 08/11/2023 12:05 PM CDT Neck pain MRI LUMB SPINE WO CON Routine 08/11/2023 11:31 AM CDT Low back pain documented in this encounter Results * MRI CERV SPINE WO CON (08/11/2023 12:05 PM CDT) Anatomical Region Laterality Modality Spine Magnetic Resonan ce 08/16/2023 7:50 AM CDT Impressions 08/16/2023 7:55 AM CDT IMPRESSION: 1. ??Mild central canal stenosis at the C4/C5, C5/C6 and C6/C7 due to short pedicles and mild discogenic disease as detailed above. ??No cord signal abnormality. 2. ??Mild bilateral foraminal stenosis at C6/C7 3. ??Straightening of the normal cervical lordosis with grade 1 anterolisthesis at C3/C4. ??No acute osseous abnormality. Referred By: DEVAN PRESSLEY Interpreted By: James Frank MD, 08/16/2023 7:50 AM Narrative 08/16/2023 7:55 AM CDT EXAMINATION:MRI of the cervical spine without contrast 08/11/2023 INDICATION: Neck pain, bilateral shoulder pain TECHNIQUE: Multiplanar multisequence MR imaging of the cervical spine was performed without intravenous contrast. COMPARISON: None FINDINGS:There is straightening of the normal cervical lordosis with preservation of vertebral body heights and disc spaces. ??Bone marrow signal is within normal limits with no acute fracture or dislocation. ??No ligamentous discontinuity or signal abnormality Partially visualized intracranial contents are unremarkable. ??Cervical spinal cord is unremarkable in course caliber and signal. ??No prevertebral edema. ??No paraspinal mass or fluid collection. ??No ligamentous discontinuity or signal abnormality. ??Artifact from median sternotomy wires noted. No stenosis at the foramen magnum or C1/C2 level. ??The pedicles are developmentally short producing a narrow central canal and neural foramina at baseline. C2/C3: Negative C3/C4: 2 mm anterolisthesis a small midline disc protrusion causing slight effacement of ventral thecal sac. C4/C5: Disc space narrowing with the small midline to left paracentral disc protrusion causing mild central canal stenosis. ??The thecal sac measures 7 mm. C5/C6: Disc space narrowing with small midline disc protrusion causing mild central canal stenosis. ??Thecal sac measures 7 mm C6/C7: Disc space narrowing with small broad-based midline disc protrusion and uncovertebral arthropathy causing mild central canal stenosis and mild bilateral foraminal stenosis. ??Thecal sac measures 7 mm C7/T1: Negative Evaluation is mildly limited due to motion and artifact. Procedure Note James Frank MD - 08/16/2023 EXAMINATION:MRI of the cervical spine without contrast 08/11/2023 INDICATION: Neck pain, bilateral shoulder pain TECHNIQUE: Multiplanar multisequence MR imaging of the cervical spine wasperformed without intravenous contrast. COMPARISON: None FINDINGS:There is straightening of the normal cervical lordosis withpreservation of vertebral body heights and disc spaces. Bone marrowsignal is within normal limits with no acute fracture or dislocation. Noligamentous discontinuity or signal abnormality Partially visualized intracranial contents are unremarkable. Cervicalspinal cord is unremarkable in course caliber and signal. No prevertebraledema. No paraspinal mass or fluid collection. No ligamentousdiscontinuity or signal abnormality. Artifact from median sternotomywires noted. No stenosis at the foramen magnum or C1/C2 level. The pedicles aredevelopmentally short producing a narrow central canal and neural foraminaat baseline. C2/C3: Negative C3/C4: 2 mm anterolisthesis a small midline disc protrusion causing slighteffacement of ventral thecal sac. C4/C5: Disc space narrowing with the small midline to left paracentraldisc protrusion causing mild central canal stenosis. The thecal sacmeasures 7 mm. C5/C6: Disc space narrowing with small midline disc protrusion causingmild central canal stenosis. Thecal sac measures 7 mm C6/C7: Disc space narrowing with small broad-based midline disc protrusionand uncovertebral arthropathy causing mild central canal stenosis and mildbilateral foraminal stenosis. Thecal sac measures 7 mm C7/T1: Negative Evaluation is mildly limited due to motion and artifact. IMPRESSION: 1. Mild central canal stenosis at the C4/C5, C5/C6 and C6/C7 due to shortpedicles and mild discogenic disease as detailed above. No cord signalabnormality. 2. Mild bilateral foraminal stenosis at C6/C7 3. Straightening of the normal cervical lordosis with grade 1anterolisthesis at C3/C4. No acute osseous abnormality. Referred By: DEVAN PRESSLEY Interpreted By: James Frank MD, 08/16/2023 7:50 AM us Devan Pressley MD MRI Final Result * MRI LUMB SPINE WO CON (08/11/2023 11:31 AM CDT) Anatomical Region Laterality Modality Spine Magnetic Resonan ce 08/16/2023 7:55 AM CDT Impressions 08/16/2023 8:00 AM CDT IMPRESSION: 1. ??No acute osseous abnormality. ??Diffuse heterogeneity noted throughout the bone marrow with no suspicious focal bony lesion 2. ??Mild degenerative changes with no significant lumbar disc herniation or spinal canal stenosis Referred By: DEVAN PRESSLEY Interpreted By: James Frank MD, 08/16/2023 7:55 AM Narrative 08/16/2023 8:00 AM CDT EXAMINATION:MRI lumbar spine without contrast 08/11/2023 INDICATION:Lower back pain, bilateral leg weakness TECHNIQUE: Multiplanar multisequence MR imaging of the lumbar spine was performed without intravenous contrast. COMPARISON: CT of the abdomen and pelvis 10/27/2021 FINDINGS:Last fully formed disc space is presumed represent L5/S1. ??Lumbar spine is in anatomic alignment with preservation of vertebral body heights and disc spaces. ??Bone marrow diffusely heterogeneous. ??No suspicious focal bony lesion. ??Small Schmorl's node noted within the inferior endplate of L3. ??No ligamentous discontinuity or signal abnormality The conus terminates at the mid L1 level and is unremarkable contour and signal. ??No paraspinal mass or fluid collection the visualized abdominal aorta is normal contour. ??The upper sacral joint spaces are unremarkable. ??There is a 0.5 cm T2 hyperintense lesion within the right renal cortex 3.6 cm T2 hyperintense lesion within left renal cortex, not fully characterized but statistically most likely reflecting cysts. T10/T11: Negative T1/T12: Negative T12/L1: Negative L1/L2: Negative L2/L3: Negative L3/L4: Asymmetric disc space narrowing the left L4/L5: Mild asymmetric disc space narrowing on the right. L5/S1: Minimal facet arthropathy. Procedure Note James Frank MD - 08/16/2023 EXAMINATION:MRI lumbar spine without contrast 08/11/2023 INDICATION:Lower back pain, bilateral leg weakness TECHNIQUE: Multiplanar multisequence MR imaging of the lumbar spine wasperformed without intravenous contrast. COMPARISON: CT of the abdomen and pelvis 10/27/2021 FINDINGS:Last fully formed disc space is presumed represent L5/S1. Lumbarspine is in anatomic alignment with preservation of vertebral body heightsand disc spaces. Bone marrow diffusely heterogeneous. No suspiciousfocal bony lesion. Small Schmorl's node noted within the inferiorendplate of L3. No ligamentous discontinuity or signal abnormality The conus terminates at the mid L1 level and is unremarkable contour andsignal. No paraspinal mass or fluid collection the visualized abdominalaorta is normal contour. The upper sacral joint spaces are unremarkable.There is a 0.5 cm T2 hyperintense lesion within the right renal cortex 3.6cm T2 hyperintense lesion within left renal cortex, not fullycharacterized but statistically most likely reflecting cysts. T10/T11: Negative T1/T12: Negative T12/L1: Negative L1/L2: Negative L2/L3: Negative L3/L4: Asymmetric disc space narrowing the left L4/L5: Mild asymmetric disc space narrowing on the right. L5/S1: Minimal facet arthropathy. IMPRESSION: 1. No acute osseous abnormality. Diffuse heterogeneity noted throughoutthe bone marrow with no suspicious focal bony lesion 2. Mild degenerative changes with no significant lumbar disc herniationor spinal canal stenosis Referred By: DEVAN PRESSLEY Interpreted By: James Frank MD, 08/16/2023 7:55 AM us Devan Pressley MD MRI Final Result documented in this encounter Visit Diagnoses Diagnosis Low back pain Lumbago Neck pain Cervicalgia documented in this encounter Additional Health Concerns Assessment Noted Time PHQ-9 Depression Total Score: 13 023 3:56 PM CDT documented as of this encounter Care Teams Tug Master Relationship Specialty Start Date End Date Sanjeev Webster DO [address] [place] [id number] PCP - General FAMILY PRACTICE 09/25/20 Dianne Johnson, RN [address] [place] [address] Denier Control Operator (Ambulatory) REGISTERED NURSE 08/14/20 documented as of this encounter
--- OUTSIDE RECORDS SUMMARY | 2024-03-15 00:52 | XMS_ITS | Encounter Summary ---
Author Organization [facility] Address [facility]6 [facility] [place] [address] [place] [address] Care Team Providers Care Aboriginal Community Council Member Name Role Phone Dianne Johnson RN Unavailable [phone] Sanjeev Webster DO Primary Care Provider + Reason for Visit * Reason Onset Date Comments TCM 08/27/2023 [facility] 08/21-08/25 Encounter Details Date Type Department Care Team (Late st Contact Info) Description 08/27/[address] [facility] Family & Internal Medicine [address] [address] Dianne Johnson, RN [address] [place] [address] TCM ([facility] 08/21-08/25) Social History Tobacco Use Types Packs/Day Years [...] Recorded Patient Health Questionnaire-2 Score 1 08/06/[address] [facility] [place] of Occupat ional Health - Occupational Stress [...] Progress Notes * Dianne Johnson RN - 08/27/2023 6:41 AM CDT Images from the original note were not included. Follow up call to patient post hospitalization Patient admitted to [facility] on 08/22/23 with discharge diagnosis of: Discharge date: 08/26/23 Date of Contact: 08/27/23: Left detailed message for Izzy; [facility] H[facility] Vitamin B12 1,000 mcg daily and metoprolol succinate 25 mg take 12.5 mg (half ofa tablet) by mouth daily. Encouraged Izzy to write down updated medication list for patient to bring to upcoming appointment on 09/01/23. 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 Patient Status: (Including education, discharge instructions, s/sx to infection, and when to seek medical attn) Contacted patient today and confirmed appointment with on 09/01/23 at 10:40 am and on 09/04/23 at 1:00 PM. Encouraged patient to log date, time and heart rates. Bring log to upcoming appointment with PCP and Thread Grinder. Patient verbalizes understanding. Stated her pulseox is 95 % and HR: 62 right now. Educated on s/s of bradycardia. Patient denies any s/s at this time. Encouraged to reach out to Thread Grinder at the onset of any changes or if HR drops below 60. Patient verbalizes understanding. Patient confirmed she is taking Warfarin 7 mg daily. She is unsure if she is on Trulicity or Ozempic. Stated her DIL helps her with injection once a week. CC reached out to Izzy and left detailed message to give patient updated medication list to bring to upcoming appointment. Patient is aware. Reviewed D/C instructions. Patient prefers not to see gusset maker for Vitamin B12 deficiency. She wants to know if PCP can manage. Message sent to PCP and PCP nursing team. Patient is aware. Patient reports appetite is not bad. Last BM this morning and she slept okay last night. Denies CHF exacerbation s/s or COPD exacerbations s/s. Denies heart palpitations, CP or sob. Stated she feels good. Reports feeling better then she has in a long time. AVS medication list from [place] and [facility] medication list reconciled. Opportunity provided to answer questions. No further needs noted at this time. Appointment scheduled with (Thread Grinder) at [facility] at [address] [place] [address]. on 09/04/23 at 1:00 PM. Please arrive 15 minutes early to register. If you need to reschedule; please contact 's office at [phone]. 08/27/23: Contacted office to obtain fax number. Faxed records to at [phone]. According to D/C summary it states the following: Pertinent Labs: Pertinent Procedures/Imaging performed while inpatient: See records from [facility]. Faxed to PCP on 08/27/23. Vaccines Given While Inpatient: no Discharge Disposition: Home Any follow up appointments needed to be scheduled: no Future Appointments Date Time Provider Department [place] 09/01/2023 10:40 AM Sanjeev Webster DO [facility] 09/04/2023 1:[address] [facility] 10/08/2023 11:20 AM Sanjeev Webster DO [facility] [place] 04/14/2024 2:00 PM MD [facility]ierrez [facility] Referrals needed: Yes, load dispatcher. Sol Webb SODA FOUNTAIN CLERK in [place] for Vitamin B-12 deficiency. Per D/C instructions. Patient wants to know if she should see Sol or can he manage. Any follow up labs/imaging needed: Defer to PCP. Have lab/imaging orders been placed: N/A Allergies: [...] tablets (12.5 mg total) by mouth daily. 08/27/2023: Per [facility] D/C medication list. omeprazole (PRILOSEC) 40 MG capsule Take 1 capsule (40 mg total) by mouth daily. 90 capsule 1 potassium chloride CR (K-TAB) 10 MEQ Tab CR tablet Take 1 tablet by mouth once daily 90 tablet 0 Semaglutide (OZEMPIC, 0.25 OR 0.5 MG/DOSE, SC) Inject 0.5 mg into the skin once a week. 08/27/2023: Per [facility] medication list. simvastatin (ZOCOR) 10 MG tablet Take 1 tablet (10 mg total) by mouth nightly at bedtime. 90 tablet3 venlafaxine XR (EFFEXOR-XR) 150 MG 24 hr capsule Take 1 capsule by mouth once daily 90 capsule 0 vitamin B-12 (CYANOCOBALAMIN) (CYANOCOBALAMIN) 1000 mcg tablet Take 1 tablet (1,000 mcg total) by mouth daily. 08/27/2023: Per [facility] medication list. warfarin (COUMADIN) 2 MG tablet Take 1 tablet (2 mg total) by mouth daily. 30 tablet 1 warfarin (COUMADIN) 5 MG tablet Take 1 tablet (5 mg total) by mouth daily. 08/27/2023: Patient taking a total of 7 mg daily. 30 tablet 1 Blood Glucose Monitoring Suppl (ONE TOUCH ULTRA 2) w/Device Kit 1 Device by Does not apply route daily. 1 kit 0 docusate sodium (COLACE) 100 MG capsule Take one by mouth twice daily or as needed for constipation. 08/27/2023: Not on [facility] medication list. 30 capsule 0 ferrous sulfate, 65 mg elemental, 325 (65 FE) MG tablet Take 1 tablet (325 mg total) by mouth dailywith breakfast. 08/27/2023: Not on [facility] medication list. Glucose Blood (BLOOD GLUCOSE TEST STRIPS) Strip 1 Device by Does not apply route daily. 100 strip 3 iron polysaccharides (NIFEREX) 150 MG capsule Take 1 capsule (150 mg total) by mouth daily. 08/27/2023: Not on [facility] medication list. 30 capsule 2 Lancets (ONETOUCH ULTRASOFT) lancets 1 each by Other route as needed. Use as instructed 100 each 3 predniSONE (DELTASONE) 20 MG tablet Take 3 tablets for three days, then take 2 tablets for three days, then take 1 tablet for three days (Patient not taking: Reported on 08/27/2023) 18 tablet 0 traMADol (ULTRAM) 50 MG tablet Take 0.5 tablets (25 mg total) by mouth every 6 (six) hours as needed for Pain. tab (Patient not taking: Reported on 08/27/2023) TRULICITY 1.5 MG/0.5ML injection inject 1 syringe subcutaneously once a week 08/27/2023: [facility] on [facility] D/C medication list and not Trulicity. 12 mL 0 No current facility-administered medications for this visit. Medication Changes or Discontinued Medications: Does patient have difficulty affording medication: No [...] able to perform ADLs independently On track 08/27/23: Independent with ADL's. Plan of Care: Follow up with on 09/01/23 and on 09/04/23 or call before that time at the onset of any changes. CC will continue to follow up by phone. documented in this encounter Plan of Treatment Upcoming Encounters Date Type Department Care Team (Late st Contact Info) Description 04/14/2024 2:00 PM STUD SHEEP FARMER Office Visit [facility] Multispecialty Care - [facility] [address] [facility], [address] [place] [address] Julio Pulido MD [address] [place] [address] documented as of this encounter Goals Goal Patient Goal Type Associated Problems Recent Progress Patient-Stated? Author Health - patient able to perform ADLs independently General On track(2023 9:49 AM CDT) Dianne Corona RN Note: 12/17/23: Patient stated she is independent with ASL's. Establish Plan for Symptom Monitoring-CHF General On track(2023 11:36 AM STUD SHEEP FARMER) Dianne Corona RN Note: Patient will recognize [...] Symptom Monitoring-COPD General On track(2023 11:36 AM STUD SHEEP FARMER) Dianne Corona RN Note: Patient will recognize [...] Symptom Monitoring-DM General On track(2023 4:33 PM STUD SHEEP FARMER) Dianne Corona RN Note: Patient will manage [...] Symptom Monitoring-HTN General On track(2023 4:33 PM STUD SHEEP FARMER) Dianne Corona RN Note: Patient will monitor [...] documented as of this encounter Care Teams Aboriginal Community Council Member Relationship Specialty Start Date End Date Sanjeev Webster DO [address] [place] [address] PCP - General FAMILY PRACTICE 09/25/20 Dianne Johnson, RN [address] [place] [address] Balance Engineer (Ambulatory) REGISTERED NURSE 08/14/20 documented as of this encounter
--- OUTSIDE RECORDS SUMMARY | 2024-03-15 00:52 | XMS_ITS | Encounter Summary ---
Author Organization [facility] Address [facility]6 [facility] [place] [address] [place] [address] Care Team Providers Care Transport Medic Name Role Phone Dianne Johnson RN Unavailable [phone] Sanjeev Webster DO Primary Care Provider + Encounter Details Date Type Department Care Team (Latest Contact Info) Description 08/14/2023 - 08/14/2023 11:59 PM CDT Hospital Encounter [facility] [address] [place] [address] Sanjeev Webster DO [address] [place] [address] Discharge Disposition: Home or Self [...] How often do you attend chur or mandaen services? More than 4 times [...] Recorded Patient Health Questionnaire-2 Score 1 08/06/2023 [facility] Occupat ional Health - [...] hronic obstructive pulmonary disease, unspecified COPD type ([facility]) INHALE 2 PUFFS BY MOUTH EVERY 6 HOURS NEEDED FOR WHEEZING 18 g 5 3 Blood Glucose Monitoring Suppl (ONE TOUCH ULTRA 2) w/Device KitIndications:Type 2 diabetes mellitus with stage 3b chronic kidney disease, without long-term current use of insulin ([facility]) 1 Device by Does not [...] disease, without long-term current use of insulin ([facility]) 1 Device by Does not apply route daily. 100 strip 3 3 Lancets (ONETOUCH ULTRASOFT) lancetsIndications:T ype 2 diabetes mellitus with stage 3b chronic kidney disease, without long-term current use of insulin ([facility]) 1 each by Other route as needed. Use as instructed 100 each 3 3 methIMAzole (TAPAZOLE) 5 MG tablet Take 1 tablet (5 mg total) by mouth daily. 4 simvastatin (ZOCOR) 10 MG tabletIndications:Hy perlipidemia associated with type 2 diabetes mellitus ([facility] HHS/HCC) Take 1 tablet (10 [...] pertensive heart disease with congestive heart failure ([facility] HHS/HCC) Take 1 tablet by [...] fraction (HFpEF) ([facility] HHS/HCC) Take 0.5 tablets (12.5 [...] disease, without long-term current use of insulin ([facility]) inject 1 syringe subcutaneously once a week 12 mL 4 09/01/19 24 venlafaxine XR (EFFEXOR-XR) 150 MG 24 hr capsuleIndications:C urrent mild episode of major depressive disorder without prior episode ([facility]) Take 1 capsule by mouth [...] st Contact Info) Description 04/14/2024 2:00 PM ACCOUNT CLASSIFICATION CLERK Office Visit [facility] Multispecialty Care - [address], [address] [place] [id number] Julio Pulido MD [address] [place] [address] documented as of this encounter Goals Goal Patient Goal Type Associated Problems Recent Progress Patient-Stated? Author Health - patient able to perform ADLs independently General On track(2023 9:49 AM CDT) Dianne Corona RN Note: 12/17/23: Patient stated she is independent with ASL's. Establish Plan for Symptom Monitoring-CHF General On track(2023 11:36 AM ACCOUNT CLASSIFICATION CLERK) Dianne Corona RN Note: Patient will [...] Symptom Monitoring-COPD General On track(2023 11:36 AM ACCOUNT CLASSIFICATION CLERK) Dianne Corona RN Note: Patient will [...] Symptom Monitoring-DM General On track(2023 4:33 PM ACCOUNT CLASSIFICATION CLERK) Dianne Corona RN Note: Patient will [...] Symptom Monitoring-HTN General On track(2023 4:33 PM ACCOUNT CLASSIFICATION CLERK) Dianne Corona, RN Note: Patient will monitor [...] documented as of this encounter Care Teams Transport Medic Relationship Specialty Start Date End Date Sanjeev Webster DO [address] [place] [address] PCP - General FAMILY PRACTICE 09/25/20 Dianne Johnson, RN [address] [place], [place] [id number] Flow Machine Operator (Ambulatory) REGISTERED NURSE 08/14/20 documented as of this encounter
--- OUTSIDE RECORDS SUMMARY | 2024-03-15 00:52 | XMS_ITS | Encounter Summary ---
Author Organization [facility] Address [facility]6 [facility] [place] [address] [place] [address] Care Team Providers Care Director Athletic Name Role Phone Dianne Johnson RN Unavailable [phone] Sanjeev Montez DO Primary Care Provider + Reason for Visit * Reason Onset Date Comments Medication Request 07/29/2023 Encounter Details Date Type Department Care Team (Late st Contact Info) Description 07/29/2023 Telephone [facility] Family & Internal Medicine [facility] [address] [place] [address] Sanjeev Montez DO [address] [place] [address] Medication Request Social History Tobacco [...] often do you attend chur ch or jainism services? More than 4 times per year [...] Answer Date Recorded Patient Health Questionnaire-2 Score 6 12/11/2022 [facility] of Occupat ional Health - [...] Progress Notes * Yenifer Ingram MA - 07/30/2023 1:53 PM CDT Spoke with patient and LMOM for izzy informing them medication was sent. * Sanjeev Montez DO - 07/29/2023 3:40 PM CDTAddended by: SANJEEV MONTEZ on: 07/29/2023 03:40 PM Modules accepted: Orders * Sanjeev Montez DO - 07/29/2023 3:40 PM CDT Tizanidine sent out; can discuss at next OV on 08/06/23 if still continuing. * Lola Eli - 07/29/2023 2:59 PM CDT Pt called in stating having cramps in both legs but pain behind L knee. Pt asking for muscle relaxers. Please advise. documented in this encounter Plan of Treatment Upcoming Encounters Date Type Department Care Team (Late st Contact Info) Description 04/14/2024 2:00 PM SWITCHBOARD OPERATOR RECEPTIONIST Office Visit [facility] Multispecialty Care - [address], [address] [place] [address] Julio Pulido MD [address] [place] [address] documented as of this encounter Goals Goal Patient Goal Type Associated Problems Recent Progress Patient-Stated? Author Health - patient able to perform ADLs independently General On track(2023 9:49 AM CDT) Dianne Corona RN Note: 12/17/23: Patient stated she is independent with ASL's. Establish Plan for Symptom Monitoring-CHF General On track(2023 11:36 AM SWITCHBOARD OPERATOR RECEPTIONIST) Dianne Corona RN Note: Patient will recognize [...] Symptom Monitoring-COPD General On track(2023 11:36 AM SWITCHBOARD OPERATOR RECEPTIONIST) Dianne Corona RN Note: Patient will recognize [...] Symptom Monitoring-DM General On track(2023 4:33 PM SWITCHBOARD OPERATOR RECEPTIONIST) Dianne Corona RN Note: Patient will manage [...] Symptom Monitoring-HTN General On track(2023 4:33 PM SWITCHBOARD OPERATOR RECEPTIONIST) Dianne Corona RN Note: Patient will monitor B/P several times per week , record readings and report to physician or CC if B/P consistently >130/80 Take your medications as prescribed. Follow up with your provider as scheduled. Take your blood pressure at least several times a week if able. documented as of this encounter Visit Diagnoses Diagnosis Muscle spasm- Primary Spasm of muscle documented in this encounter Additional Health Concerns Assessment Noted Time PHQ-9 Depression Total Score: 13 023 3:56 PM CDT documented as of this encounter Care Teams Director Athletic Relationship Specialty Start Date End Date Sanjeev Montez DO [address] [place] [id number] PCP - General FAMILY PRACTICE 09/25/20 Dianne Johnson, RN [address] [place] [address] Medical Management Specialist (Ambulatory) REGISTERED NURSE 08/14/20 documented as of this encounter
--- OUTSIDE RECORDS SUMMARY | 2024-03-15 00:52 | XMS_ITS | Encounter Summary ---
Author Organization [facility] Address [facility]6 [facility] [place], [place] [address] [place] [address] Care Team Providers Care Algology Teacher Name Role Phone Dianne Johnson RN Unavailable [phone] Sanjeev Webster DO Primary Care Provider + Reason for Visit * Reason Onset Date Comments Results 07/27/2023 Encounter Details Date Type Department Care Team (Late st Contact Info) Description 07/27/2023 Telephone [facility] Family & Internal Medicine [place] [id number] [place] [address] Sanjeev Webster DO [facility] [place] [address] Results Social History Tobacco Use [...] any clubs o r organizations such as sikhism groups, unions, fraternal or athletic groups, or [...] Progress Notes * Yenifer Ingram MA - 08/07/2023 10:09 AM CDT Medication was delivered. Patient and Izzy notified. PCP also reviewed INR results and advised the patient should take 5 mg on ,Thu, Thu and go back to 7mg on Thursday. Repeat INR in one week as scheduled. Patient and Izzy v/u and agreed to POC. No questions at this time. * SUHAIL Block - 07/27/2023 1:07 PM CDT [place], a social media campaign manager from [facility], is calling in regards to this patient. She states her Ozempic medication will be mailed to our office and the patient will come pick it up, we just need to call patient whenever we receive it. CB# ([place]) [phone] documented in this encounter Plan of Treatment Upcoming Encounters Date Type Department Care Team (Late st Contact Info) Description 04/14/2024 2:00 PM CLAMPER Office Visit [facility] Multispecialty Care - [facility] [address] [facility], [address] [place] [phone] Julio Pulido MD [address] [place] [address] documented as of this encounter Goals Goal Patient Goal Type Associated Problems Recent Progress Patient-Stated? Author Health - patient able to perform ADLs independently General On track(2023 9:49 AM CDT) Dianne Corona RN Note: 12/17/23: Patient stated she is independent with ASL's. Establish Plan for Symptom Monitoring-CHF General On track(2023 11:36 AM CLAMPER) Dianne Corona RN Note: Patient will recognize [...] Symptom Monitoring-COPD General On track(2023 11:36 AM CLAMPER) Dianne Corona RN Note: Patient will recognize [...] Symptom Monitoring-DM General On track(2023 4:33 PM CLAMPER) Dianne Corona RN Note: Patient will manage [...] Symptom Monitoring-HTN General On track(2023 4:33 PM CLAMPER) No Dianne Johnson RN Note: Patient will [...] documented as of this encounter Care Teams Algology Teacher Relationship Specialty Start Date End Date Sanjeev Webster DO [address] [place] [address] PCP - General FAMILY PRACTICE 09/25/20 Dianne Johnson, RN [address] [place] [address] Steam Pressure Chamber Operator (Ambulatory) REGISTERED NURSE 08/14/20 documented as of this encounter
--- OUTSIDE RECORDS SUMMARY | 2024-03-15 00:52 | XMS_ITS | Encounter Summary ---
Author Organization [facility] Address [facility]6 [facility] [place] [address] [place] [address] Care Team Providers Care Warper Creeler Name Role Phone Dianne Johnson RN Unavailable [phone] Sanjeev Webster DO Primary Care Provider + Reason for Visit * Reason Comments Image (SCAN) Encounter Details Date Type Department Care Team (Latest Contact Info) Description 08/22/2023 Scan HEALTH INFO SRVCS Scanned, Doc Med [...] Recorded Patient Health Questionnaire-2 Score 1 08/06/2023 [facility] Questionnaire Answer [...] st Contact Info) Description 04/14/2024 2:00 PM STRATEGIES ANALYST Office Visit [facility] Multispecialty Care - [facility] [address] [facility], [address] [place] [address] Julio Pulido MD [address] [place] [address] documented as of this encounter Goals Goal Patient Goal Type Associated Problems Recent Progress Patient-Stated? Author Health - patient able to perform ADLs independently General On track(2023 9:49 AM CDT) Dianne Corona RN Note: 12/17/23: Patient stated she is independent with ASL's. Establish Plan for Symptom Monitoring-CHF General On track(2023 11:36 AM STRATEGIES ANALYST) Dianne Corona RN Note: Patient will [...] Symptom Monitoring-COPD General On track(2023 11:36 AM STRATEGIES ANALYST) Dianne Corona RN Note: Patient will [...] Symptom Monitoring-DM General On track(2023 4:33 PM STRATEGIES ANALYST) Dianne Corona RN Note: Patient will [...] Symptom Monitoring-HTN General On track(2023 4:33 PM STRATEGIES ANALYST) Dianne Corona, RN Note: Patient will monitor [...] Priority Date/Time Associated Diagnosis Comments IMAGE GENERIC 08/22/2023 documented in this encounter Results * IMAGE GENERIC (08/22/2023) Anatomical Region Laterality Modality Other 08/22/2023 us Doc Med Group Scanned SCANNING Final Resu lt documented in this encounter Visit Diagnoses Not on filedocumented in this encounter Additional Health Concerns Assessment Noted Time PHQ-9 Depression Total Score: 13 023 3:56 PM CDT documented as of this encounter Care Teams Warper Creeler Relationship Specialty Start Date End Date Sanjeev Webster DO [address] [place] [address] PCP - General FAMILY PRACTICE 09/25/20 Dianne Johnson, RN [address] [place] [address] Mechanical Drafter (Ambulatory) REGISTERED NURSE 08/14/20 documented as of this encounter
--- OUTSIDE RECORDS SUMMARY | 2024-03-15 00:52 | XMS_ITS | Encounter Summary ---
Author Organization [facility] Address [facility] [place] [address] [place] [address] Care Team Providers Care Loading Unit Operator Crimping Name Role Phone Dianne Johnson RN Unavailable [phone] Sanjeev Webster DO Primary Care Provider + Encounter Details Date Type Department Care Team (Latest Contact Info) Description 08/25/2023 Scan HEALTH INFO SRVCS Scanned, Doc Med [...] often do you attend chur ch or episcopalian services? More than 4 times [...] 08/06/2023 [facility] of Occupat ional Health - Occupational Stress [...] st Contact Info) Description 04/14/2024 2:00 PM MEDICAL SUPERINTENDENT Office Visit [facility] Multispecialty Care - [facility] 3 [facility], [address] [place] [address] Julio Pulido MD 3 [place] [address] documented as of this encounter Goals Goal Patient Goal Type Associated Problems Recent Progress Patient-Stated? Author Health - patient able to perform ADLs independently General On track(2023 9:49 AM CDT) Dianne Corona RN Note: 12/17/23: Patient stated she is independent with ASL's. Establish Plan for Symptom Monitoring-CHF General On track(2023 11:36 AM MEDICAL SUPERINTENDENT) Dianne Corona RN Note: Patient will [...] Symptom Monitoring-COPD General On track(2023 11:36 AM MEDICAL SUPERINTENDENT) Dianne Corona RN Note: Patient will [...] Symptom Monitoring-DM General On track(2023 4:33 PM MEDICAL SUPERINTENDENT) Dianne Corona, RN Note: Patient will manage [...] Symptom Monitoring-HTN General On track(2023 4:33 PM MEDICAL SUPERINTENDENT) Dianne Corona, RN Note: Patient will monitor [...] documented as of this encounter Care Teams Loading Unit Operator Crimping Relationship Specialty Start Date End Date Sanjeev Webster DO [address] [place] [address] PCP - General FAMILY PRACTICE 09/25/20 Dianne Johnson RN [address] [place] [address] Child Psychologist (Ambulatory) REGISTERED NURSE 6/8/21 documented as of this encounter
--- OUTSIDE RECORDS SUMMARY | 2024-03-15 00:52 | XMS_ITS | Encounter Summary ---
Author Organization [facility] Address [facility]6 [facility] [place] [address] [place] [address] Care Team Providers Care Patient Relations Coordinator Name Role Phone Dianne Johnson RN Unavailable [phone] Sanjeev Webster DO Primary Care Provider + Reason for Visit * Reason Onset Date Comments Follow Up Call 08/27/2023 Encounter Details Date Type Department Care Team (Late st Contact Info) Description 08/27/2023 Telephone [facility] Family & Internal Medicine [id number] [place] [address] Sanjeev Webster DO [address] [place] [address] Follow Up Call Social History [...] How often do you attend chur or confucianist services? More than 4 times per year [...] Recorded Patient Health Questionnaire-2 Score 1 08/06/2023 [facility] Occupat ional Health - Occupational Stress [...] Progress Notes * Sanjeev Webster DO - 08/27/2023 2:20 PM CDT Will need to decide this at next OV regarding f/u with hematology; need more information. INR is therapeutic at 3.4; continue current dose. * Dianne Johnson RN - 08/27/2023 10:15 AM CDT D/C from [place] on 08/26/23. TCM call completed today. See note for complete Confirmed TCM appointment on 09/01/23 at 10:40 am. Left detailed message with Izzy to give patient updated medication list for upcoming appointment. Medical records from [facility] faxed to PCP this morning. Please address the following: Referrals needed: Yes, childhood teacher. Sol Webb TRAWL NET MAKER in [place] for Vitamin B-12 deficiency. Per D/C instructions. Patient wants to know if she should see Sol or can PCP manage. 2. FYI: PT on 08/22/23: 34.4 INR: 3.4. Patient is currently taking Warfarin 7 mg daily. 3. FYI: Encouraged patient to log date, time and heart rates. Bring log to upcoming appointment with PCP and Physical Education Instructor. Encouraged to reach out to Physical Education Instructor at the onset of any changes or if HRdrops below 60. Scheduled to see on 09/04/23. 4. Any follow up labs/imaging needed: Defer to PCP. Thank you. documented in this encounter Plan of Treatment Upcoming Encounters Date Type Department Care Team (Late st Contact Info) Description 04/14/2024 2:00 PM IP TECHNOLOGY TRANSACTIONS ATTORNEY Office Visit [facility] Multispecialty Care - [facility] 3 [facility], [address] [place] [address] Julio Pulido MD 3 [place] [address] documented as of this encounter Goals Goal Patient Goal Type Associated Problems Recent Progress Patient-Stated? Author Health - patient able to perform ADLs independently General On track(2023 9:49 AM CDT) Dianne Corona RN Note: 12/17/23: Patient stated she is independent with ASL's. Establish Plan for Symptom Monitoring-CHF General On track(2023 11:36 AM IP TECHNOLOGY TRANSACTIONS ATTORNEY) Dianne Corona, RN Note: Patient will recognize [...] Symptom Monitoring-COPD General On track(2023 11:36 AM IP TECHNOLOGY TRANSACTIONS ATTORNEY) Dianne Corona, RN Note: Patient will recognize [...] Symptom Monitoring-DM General On track(2023 4:33 PM IP TECHNOLOGY TRANSACTIONS ATTORNEY) Dianne Corona RN Note: Patient will manage [...] Symptom Monitoring-HTN General On track(2023 4:33 PM IP TECHNOLOGY TRANSACTIONS ATTORNEY) Dianne Corona, RN Note: Patient will monitor [...] documented as of this encounter Care Teams Patient Relations Coordinator Relationship Specialty Start Date End Date Sanjeev Webster DO [address] [place] [address] PCP - General FAMILY PRACTICE 09/25/20 Dianne Johnson RN [address] [place] [address] Linseed Oil Press Tender (Ambulatory) REGISTERED NURSE 08/14/20 documented as of this encounter
--- OUTSIDE RECORDS SUMMARY | 2024-03-15 00:52 | XMS_ITS | Encounter Summary ---
Author Organization [facility] Address [facility]6 [facility] [place] [address] [place] [address] Care Team Providers Care Camp Nurse Name Role Phone Dianne Johnson RN Unavailable [phone] Sanjeev Webster DO Primary Care Provider + Encounter Details Date Type Department Care Team (Late st Contact Info) Description 08/22/2023 Scan [facility] [id number] Scanned, Doc Pccl Social History Tobacco Use Types Packs/Day Years [...] often do you attend chur ch or evangelical services? More than 4 times [...] Recorded Patient Health Questionnaire-2 Score 1 08/06/2023 [facility] Answer Date Recorded [...] st Contact Info) Description 04/14/2024 2:00 PM INFANTRY ASSAULTMAN Office Visit [facility] Multispecialty Care - [facility] 3 [facility], [address] [place] [address] Julio Pulido MD 3 [place] [address] documented as of this encounter Goals Goal Patient Goal Type Associated Problems Recent Progress Patient-Stated? Author Health - patient able to perform ADLs independently General On track(2023 9:49 AM CDT) Dianne Corona RN Note: 12/17/23: Patient stated she is independent with ASL's. Establish Plan for Symptom Monitoring-CHF General On track(2023 11:36 AM INFANTRY ASSAULTMAN) Dianne Corona RN Note: Patient will recognize [...] Symptom Monitoring-COPD General On track(2023 11:36 AM INFANTRY ASSAULTMAN) Dianne Corona RN Note: Patient will recognize [...] Symptom Monitoring-DM General On track(2023 4:33 PM INFANTRY ASSAULTMAN) Dianne Corona RN Note: Patient will manage [...] Symptom Monitoring-HTN General On track(2023 4:33 PM INFANTRY ASSAULTMAN) Dianne Corona RN Note: Patient will monitor [...] documented as of this encounter Care Teams Camp Nurse Relationship Specialty Start Date End Date Sanjeev Webster DO [address] [place] [address] PCP - General FAMILY PRACTICE 09/25/20 Dianne Johnson RN [address] [place] [address] Commercial Maintenance Technician (Ambulatory) REGISTERED NURSE 08/14/20 documented as of this encounter
--- OUTSIDE RECORDS SUMMARY | 2024-03-15 00:52 | XMS_ITS | Encounter Summary ---
Author Organization [facility] Address Replaced by [facility] [place] [address] [place] [address] Care Team Providers Care Contract Mail Carrier Name Role Phone Dianne Johnson RN Unavailable [phone] Sanjeev Webster DO Primary Care Provider + Encounter Details Date Type Department Care Team (Latest Contact Info) Description 08/26/2023 Scan HEALTH INFO SRVCS Scanned, Doc Med [...] often do you attend chur ch or pentecostal services? More than 4 times per year [...] st Contact Info) Description 04/14/2024 2:00 PM FOOD AND BEVERAGE CONTROLLER Office Visit [facility] Medical Group Multispecialty Care - [facility] 3 [facility], [address] [place] [address] Julio Pulido MD 3 [place] [address] documented as of this encounter Goals Goal Patient Goal Type Associated Problems Recent Progress Patient-Stated? Author Health - patient able to perform ADLs independently General On track(2023 9:49 AM CDT) Dianne Corona RN Note: 12/17/23: Patient stated she is independent with ASL's. Establish Plan for Symptom Monitoring-CHF General On track(2023 11:36 AM FOOD AND BEVERAGE CONTROLLER) Dianne Corona RN Note: Patient will recognize [...] Symptom Monitoring-COPD General On track(2023 11:36 AM FOOD AND BEVERAGE CONTROLLER) Dianne Corona RN Note: Patient will recognize [...] Symptom Monitoring-DM General On track(2023 4:33 PM FOOD AND BEVERAGE CONTROLLER) Dianne Corona, RN Note: Patient will manage [...] Symptom Monitoring-HTN General On track(2023 4:33 PM FOOD AND BEVERAGE CONTROLLER) Dianne Corona, RN Note: Patient will monitor [...] documented as of this encounter Care Teams Contract Mail Carrier Relationship Specialty Start Date End Date Sanjeev Webster DO [address] [place] [address] PCP - General FAMILY PRACTICE 09/25/20 Dianne Johnson RN [address] [place] [address] Galley Boy (Ambulatory) REGISTERED NURSE 6/8/21 documented as of this encounter
--- OUTSIDE RECORDS SUMMARY | 2024-03-15 00:52 | XMS_ITS | Encounter Summary ---
Author Organization [facility] Address [facility]6 [facility] [place] [address] [place] [address] Care Team Providers Care Cell Tender Name Role Phone Casey Johnson RN Unavailable [phone] Sanjeev Webster DO Primary Care Provider + Reason for Visit * Reason Onset Date Comments Care Management 08/10/2023 Encounter Details Date Type Department Care Team (Late st Contact Info) Description 08/10/2023 Patient Outreach [facility] Medical Group Family & Internal Medicine [address] [address] Casey Johnson, RN [address] [place] [address] Care Management Social History Tobacco [...] How often do you attend chur or worship services? More than 4 times per year [...] Recorded Patient Health Questionnaire-2 Score 1 08/06/2023 [facility] of Occupat ional Health - Occupational Stress [...] Progress Notes * Casey Johnson RN - 08/10/2023 12:17 PM CDT Chronic Care Management: Patient concerns or urgent matters that need addressed: None identified during call. Patient Status: Contacted patient to remind her of MRI of cervical and lumbar scheduled tomorrow at [facility] for . Patient stated she will take herself. CC will reach out to central scheduling to find out if any special instructions for MRI's. Patient verbalizes understanding. Contacted Vivian in central scheduling. She stated no special instructions. Patient needs to arriveat [facility] by 10:45 am. Contacted patient and informed of the above. Discussed last INR results and patient aware to get INR on 08/14/23 at 10:40 am. Denies any issues with d/d of bleeding at this time. Patient reports feeling a little sob at her sister's this morning when she attempted to let the dog out. Stated she used albuterol inhaler and she is fine now. Denies any other s/s of CHF or COPD exacerbation s/s. Patient reports her wrist is doing a lot better. Stated it's sore and weak. Stating PCP informed her if she still has issues in 2 weeks to inform PCP office for additional imaging. BP on 08/06/23 stable at 120/66. Patient gets BP checked at each visit. Denies any issues at present. Encouraged to call with any changes. Patient verbalizes understanding. Plan of Care: online marketing coordinator will continue to follow up by [...] able to perform ADLs independently On track 03/26/23: Independent with ADL's. Upcoming Visit Appointments: Future Appointments Date Time Provider Department Center 08/11/2023 11:00 AM ALEX OF OPEN MRI (CONVENIENT CARE) [facility] ALEX 08/11/2023 12:00 PM ALEX OF OPEN MRI (CONVENIENT CARE) [facility] ALEX UR 08/14/2023 10:40 AM [facility] 09/04/2023 1:00 PM Sania Gomez MD [facility] 10/08/2023 11:20 AM Sanjeev Webster, MGFMMRVL [facility] 04/14/2024 2:00 PM Julio Pulido MD [facility] MG [facility] Quality care gaps: Health Maintenance Topic Date Due Kidney Health Evaluation Never done Annual Medicare Wellness Visit Never done Lipid Panel 08/29/2022 ASCVD LDL 08/29/2022 Zoster Vaccines (3 of 3) 02/17/2024 (Originally 01/06/2023) RSV Immunization or 60+ Years (1 - 1-dose 60+ series) 02/17/2024 (Originally 2004) COVID-19 Vaccine (5 - 2022-24 season) 2112 (Originally 11/07/2022) Hemoglobin A1C 02/06/2024 Diabetes: Retinopathy Eye Exam 04/21/2024 DTaP, Tdap and Td Vaccines (4 - Td or Tdap) 09/05/2030 Dexa Scan (General) Completed Pneumococcal Vaccine: 65+ Years Completed Hepatitis C Completed Meningococcal Vaccine Aged Out RSV Immunizations Under 20 Months Aged Out Problem List: Patient Active Problem List Diagnosis Abnormal stress test Chronic anticoagulation Coronary artery disease involving [place] coronary artery of [place] heart without angina pectoris H/O mechanical aortic valve replacement Hypertensive heart disease with congestive heart failure ([facility]) LBBB (left bundle branch block) Myopathy VAZQUEZ (obstructive sleep apnea) Paroxysmal atrial flutter ([facility]/HCC) Benign hypertension with CKD (chronic kidney disease) stage III ([facility]/HCC) Memory deficits Hearing deficit, bilateral History of cataract extraction, unspecified laterality Vitamin D deficiency Hypercalcemia Chronic frontal sinusitis Constipation, unspecified constipation type Chronic bilateral low back pain without sciatica Iron deficiency anemia, unspecified iron deficiency anemia type Disorder of skin of trunk Anemia Body mass index (BMI) 31.0-31.9, adult 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[facility]/HCC) Benign hypertension with stage 3b chronic kidney disease ([facility]/HCC) Cobalamin deficiency Compression fracture of thoracic vertebra ([facility]/HCC) Depression Diabetic polyneuropathy ([facility]/HCC) Disorder of rotator cuff Diverticular disease Dysphagia Elevated troponin Gastroesophageal reflux disease without esophagitis Hyperlipidemia, unspecified hyperlipidemia type Vascular dementia ([facility]) Unknown and unspecified causes of morbidity Syncope, unspecified syncope type Wrist joint pain Requires lifelong warfarin therapy Hyperparathyroidism ([facility]) Presence of prosthetic heart valve Plantar fascial fibromatosis Peripheral neuropathy Parathyroid adenoma Polymyalgia rheumatica ([facility]) Osteoporosis Numbness Muscle cramps Closed stable burst fracture of sixth thoracic vertebra, initial encounter ([facility]) Chest pain Contusion of scalp Knee pain Localized, primary osteoarthritis Osteoarthritis of knee Traumatic closed displaced fracture of distal end of radius Shoulder joint pain Hyperlipidemia associated with type 2 diabetes mellitus ([facility]) Hematoma Anxiety Diastolic heart failure ([facility]) Internal hemorrhoids Leukoencephalopathy Major depression single episode, in partial remission ([facility]) Metacarpal bone fracture Mitral valve disorder Peripheral arterial occlusive disease ([facility]) Primary osteoarthritis involving multiple joints Vision loss COPD (chronic obstructive pulmonary disease) ([facility]) Diarrhea Drug-induced constipation H/O mechanical aortic valve replacement Age-related osteoporosis with current pathological fracture Care Management Physical deconditioning Chronic heart failure with preserved ejection fraction (HFpEF) ([facility]) Paroxysmal atrial fibrillation ([facility]) Hypertension associated with type 2 diabetes mellitus ([facility]) Encounter for prophylactic measures, unspecified Graves' disease Cirrhosis of liver without ascites, unspecified hepatic cirrhosis type ([facility]) Stage 3b chronic kidney disease ([facility]) OLIVE (acute kidney injury) ([facility]) Heart failure with mildly reduced ejection fraction (HFmrEF) ([facility]) Hyperthyroidism Medications: Current Outpatient Medications Medication Sig [...] as needed for constipation. 30 capsule 0 furosemide (LASIX) 20 MG tablet Take 1 [...] (5 mg total) by mouth daily. metoprolol tartrate (LOPRESSOR) 25 MG tablet Take 0.5 tablets (12.5 mg total) by mouth 2 (two) times daily. 90 tablet 3 omeprazole (PRILOSEC) 40 MG capsule Take 1 capsule (40 mg total) by mouth daily. 90 capsule 1 potassium chloride CR (K-TAB) 10 MEQ Tab CR tablet Take 1 tablet by mouth once daily 90 tablet 0 predniSONE (DELTASONE) 20 MG tablet Take 3 tablets for three days, then take 2 tablets for three days, then take 1 tablet for three days 18 tablet 0 simvastatin (ZOCOR) 10 MG tablet Take 1 tablet (10 mg total) by mouth nightly at bedtime. 90 tablet3 traMADol (ULTRAM) 50 MG tablet Take 0.5 tablets (25 mg total) by mouth every 6 (six) hours as needed for Pain. tab TRULICITY 1.5 MG/0.5ML injection inject 1 syringe subcutaneously once a week 12 mL 0 venlafaxine XR (EFFEXOR-XR) 150 MG 24 hr capsule Take 1 capsule by mouth once daily 90 capsule 0 warfarin (COUMADIN) 2 MG tablet Take 1 tablet (2 mg total) by mouth daily. 30 tablet 1 warfarin (COUMADIN) 5 MG tablet Take 1 tablet (5 mg total) by mouth daily. 30 tablet 1 No current facility-administered medications for this visit. Chronic Care Management- Time Spent with Patient Time spent with patient (minutes): 15 (Comment: Time spent with patient and central scheduling.) Time spent performing chart review (minutes): 7 Total time (minutes): 22 CASEY JOHNSON RN I reviewed the patient's status and education provided by CASEY JOHNSON RN. I agree with the findings and recommendations made. Cosigned by Sanjeev Webster DO at 08/10/2023 3:44 PM CDT documented in this encounter Plan of Treatment Upcoming Encounters Date Type Department Care Team (Late st Contact Info) Description 04/14/2024 2:00 PM OVERNIGHT CAREGIVER Office Visit [facility] Multispecialty Care - [facility] 3 [facility], [address] [place] [address] Julio Pulido MD 3 [place] [address] documented as of this encounter Goals Goal Patient Goal Type Associated Problems Recent Progress Patient-Stated? Author Health - patient able to perform ADLs independently General On track(2023 9:49 AM CDT) Casey Corona RN Note: 12/17/23: Patient stated she is independent with ASL's. Establish Plan for Symptom Monitoring-CHF General On track(2023 11:36 AM OVERNIGHT CAREGIVER) Casey Corona RN Note: Patient will recognize [...] Symptom Monitoring-COPD General On track(2023 11:36 AM OVERNIGHT CAREGIVER) Casey Corona RN Note: Patient will recognize [...] Symptom Monitoring-DM General On track(2023 4:33 PM OVERNIGHT CAREGIVER) Casey Corona RN Note: Patient will manage [...] Symptom Monitoring-HTN General On track(2023 4:33 PM OVERNIGHT CAREGIVER) Casey Corona RN Note: Patient will monitor [...] disease, without long-term current use of insulin ([facility])- Primary Heart failure with mid-range ejection fraction (HFmEF) ([facility]) Chronic obstructive pulmonary disease, unspecified COPD type ([facility]) documented in this encounter Additional Health Concerns Assessment Noted Time PHQ-9 Depression Total Score: 13 023 3:56 PM CDT documented as of this encounter Care Teams Cell Tender Relationship Specialty Start Date End Date Sanjeev Webster DO [address] [place] [address] PCP - General FAMILY PRACTICE 09/25/20 Casey Johnson, RN [address] [place] [address] Wastewater Operator (Ambulatory) REGISTERED NURSE 08/14/20 documented as of this encounter
--- OUTSIDE RECORDS SUMMARY | 2024-03-15 00:52 | XMS_ITS | Encounter Summary ---
Author Organization [facility] Address [facility]6 [facility] [place] [address] [place] [address] Care Team Providers Care Oracle Webcenter Consultant Name Role Phone Dianne Johnson RN Unavailable [phone] Sanjeev Webster DO Primary Care Provider + Encounter Details Date Type Department Care Team (Latest Contact Info) Description 07/27/2023 Scan HEALTH INFO SRVCS Scanned, Doc Med [...] st Contact Info) Description 04/14/2024 2:00 PM STRATEGY INTERN Office Visit [facility] Group Multispecialty Care - [facility] 3 [facility], [address] [place] [address] Julio Pulido MD 3 [place] [address] documented as of this encounter Goals Goal Patient Goal Type Associated Problems Recent Progress Patient-Stated? Author Health - patient able to perform ADLs independently General On track(2023 9:49 AM CDT) Dianne Corona RN Note: 12/17/23: Patient stated she is independent with ASL's. Establish Plan for Symptom Monitoring-CHF General On track(2023 11:36 AM STRATEGY INTERN) Dianne Corona RN Note: Patient will recognize [...] Symptom Monitoring-COPD General On track(2023 11:36 AM STRATEGY INTERN) Dianne Corona RN Note: Patient will recognize [...] Symptom Monitoring-DM General On track(2023 4:33 PM STRATEGY INTERN) Dianne Corona, RN Note: Patient will manage [...] Symptom Monitoring-HTN General On track(2023 4:33 PM STRATEGY INTERN) Dianne Corona, RN Note: Patient will monitor [...] documented as of this encounter Care Teams Oracle Webcenter Consultant Relationship Specialty Start Date End Date Sanjeev Webster DO [address] [place] [address] PCP - General FAMILY PRACTICE 09/25/20 Dianne Johnson RN [address] [place] [address] Money Laundering Investigator (Ambulatory) REGISTERED NURSE 6/8/21 documented as of this encounter
--- OUTSIDE RECORDS SUMMARY | 2024-03-15 00:52 | XMS_ITS | Encounter Summary ---
Author Organization [facility] Address [facility] [place] [address] [place] [address] Care Team Providers Care Auto Body Repair Technician Name Role Phone Casey Johnson RN Unavailable [phone] Sanjeev Webster DO Primary Care Provider + Reason for Visit * Reason Onset Date Comments Care Management 08/04/2023 ER F/U 08/04/2023 [facility] on Encounter Details Date Type Department Care Team (Late st Contact Info) Description 08/04/2023 Patient Outreach [facility] Family & Internal Medicine [address] [address] Casey Johnson, RN [address] [place] [address] Care Management; ER F/U ([facility] on 08/02/23) Social History Tobacco Use Types Packs/Day Years [...] How often do you attend chur or jainism services? More than 4 times [...] Recorded Patient Health Questionnaire-2 Score 1 08/06/2023 [facility] [place] [facility] Occupat ional Health - Occupational Stress [...] Progress Notes * Casey Johnson RN - 08/04/2023 4:11 PM CDT Images from the original note were not included. Emergency Room Visit Follow Up Phone Call 08/04/23: Received confirmation from [facility] patient was at [facility] on 08/02/23. Contacted [facility] medical records. She will fax ER records from 08/02/23 to . 08/04/23: Received medical records and faxed a copy to PCP. 08/04/23: Left message for patient to return phone call. 08/05/23: Contacted patient. See below for details. Date of ER Visit: 08/02/23 Location: [facility] Brief Description of ER Visit: PCP: Review D/C instructions: Yes Follow up appointments: Yes, confirmed appointment with PCP tomorrow at 11:20 am. Encouraged patient to keep appointment. Follow up appointments made: No, patient is already scheduled to see PCP tomorrow. Future Appointments Date Time Provider Department Center 08/06/2023 11:20 AM [facility] 08/11/2023 11:00 AM ALEX OF OPEN MRI (CONVENIENT CARE) [facility] 08/11/2023 12:00 PM ALEX OF OPEN MRI (CONVENIENT CARE) [facility] 09/04/2023 1:00 PM Sania Gomez MD [facility] 04/14/2024 2:00 PM Julio S Alali, MD [facility] Follow up labs needed: No none Medication changes: Yes, tramadol Current Outpatient Medications Medication Sig Note Dispense [...] capsule (1,000 Units total) by mouth daily. docusate sodium (COLACE) [...] by mouth nightly at bedtime. 90 tablet3 tiZANidine (ZANAFLEX) 4 MG tablet Take 1 tablet (4 mg total) by mouth every 6 (six) hours as needed. 30 tablet 0 traMADol (ULTRAM) 50 MG tablet Take 0.5 tablets (25 mg total) by mouth every 6 (six) hours as needed for Pain. tab (Patient not taking: Reported on 08/05/2023) 08/05/2023: [facility] prescribed medication and patient's not taking it. TRULICITY 1.5 MG/0.5ML injection inject 1 syringe subcutaneously once a week (Patient not taking: Reported on 07/08/2023) 12 mL 0 venlafaxine XR (EFFEXOR-XR) 150 MG 24 hr capsule Take 1 capsule by mouth once daily 90 capsule 0 warfarin (COUMADIN) 2 MG tablet Take 1 tablet (2 mg total) by mouth daily. 30 tablet 1 warfarin (COUMADIN) 5 MG tablet Take 1 tablet (5 mg total) by mouth daily. 30 tablet 1 No current facility-administered medications for this visit. Medications needing refills: No Explain appropriateness of ER use and alternatives: Yes Barriers to successful self-management as listed below Transportation: no Financial: no Medical equipment or service: no Home and personal safety: no Behavioral health: no Medication adherence: no Other: no Chronic Care Management: Patient concerns or urgent matters that need addressed: None identified during call. Patient Status: Contacted patient today and reviewed ER discharge instructions. Encouraged rest, ice, compression and elevation. Patient verbalizes understanding. Stated ER wrapped her left hand and wrist in gauze. She will f/u with PCP tomorrow and find out if he recommends anything else to mobilize area. Stated she can't sleep at night due to pain. Reports tiny bit of swelling by thumb. Difficult getting dressed. Denies numbness or tingling. Stated she hasn't been applying ice but will plan on applying ice today for 20 minutes at a time several times per day. Patient stated right hand is her dominant hand and it's her left hand and wrist she injured when she fell. [facility] ER provider prescribed Tramadol. Informed Tramadol mixes with Warfarin can increase risk of bleeding. Patient stated she is not taking tramadol for pain since she has [place]. Stated she is taking tylenol for pain at this time and has norco if needed. Denies any issues with COPD or CHF exacerbation at this time. Encouraged to call CC at the onset ofany changes. Patient verbalizes understanding. Plan of Care: information coordinator will continue to follow up by [...] Future Appointments Date Time Provider Department Center 08/06/2023 11:20 AM Sanjeev Webster DO M[facility] 08/11/2023 11:00 AM [facility] 08/11/2023 12:00 PM [facility] 09/04/2023 1:00 PM [facility] 04/14/2024 2:00 PM Julio Pulido MD [facility] Quality care gaps: Health Maintenance Topic Date Due Kidney Health Evaluation Never done Annual Medicare Wellness Visit Never done Lipid Panel 08/29/2022 ASCVD LDL 08/29/2022 Hemoglobin A1C 07/13/2023 Zoster Vaccines (3 of 3) 02/17/2024 (Originally 01/06/2023) RSV Immunization or 60+ Years (1 - 1-dose 60+ series) 02/17/2024 (Originally 2004) COVID-19 Vaccine (5 - 2022- season) 2112 (Originally 11/07/2022) Diabetes: Retinopathy Eye Exam 04/21/2024 DTaP, Tdap and Td Vaccines (4 - Td or Tdap) 09/05/2030 Dexa Scan (General) Completed Pneumococcal Vaccine: 65+ Years Completed Hepatitis C Completed Meningococcal Vaccine Aged Out RSV Immunizations Under 20 Months Aged Out Problem List: Patient Active Problem List Diagnosis Abnormal stress test Chronic anticoagulation Coronary artery disease involving [place] coronary artery of [place] heart without angina pectoris Dyspnea on exertion H/O mechanical aortic valve replacement Hypertensive heart disease with congestive heart failure ([facility]) LBBB (left bundle branch block) Myopathy VAZQUEZ (obstructive sleep apnea) Paroxysmal atrial flutter ([facility]) Benign hypertension with CKD (chronic kidney disease) stage III ([facility]) Memory deficits Hearing deficit, bilateral History of cataract extraction, unspecified laterality Vitamin D deficiency Hypercalcemia Chronic frontal sinusitis Constipation, unspecified constipation type Chronic bilateral low back pain without sciatica Iron deficiency anemia, unspecified iron deficiency anemia type Disorder of skin of trunk Anemia Body mass index (BMI) 31.0-31.9, adult 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[facility]) Benign hypertension with stage 3b chronic kidney disease ([facility]) Cobalamin deficiency Compression fracture of thoracic vertebra ([facility]) Depression Diabetic polyneuropathy ([facility]) Disorder of rotator cuff Diverticular disease Dysphagia Elevated troponin Gastroesophageal reflux disease without esophagitis Hyperlipidemia, unspecified hyperlipidemia type Vascular dementia ([facility]) Unknown and unspecified causes of morbidity Syncope, unspecified syncope type Wrist joint pain Respiratory illness Requires lifelong warfarin therapy Hyperparathyroidism ([facility]) Presence of prosthetic heart valve Plantar fascial fibromatosis Peripheral neuropathy Parathyroid adenoma Polymyalgia rheumatica ([facility]) Osteoporosis Numbness Muscle cramps Closed stable burst fracture of sixth thoracic vertebra, initial encounter ([facility]) Chest pain Contusion of scalp Knee pain Localized, primary osteoarthritis Osteoarthritis of knee Traumatic closed displaced fracture of distal end of radius Shoulder joint pain Hyperlipidemia associated with type 2 diabetes mellitus ([facility]) PVD (peripheral vascular disease) ([facility]) Hematoma Anxiety Diastolic heart failure ([facility]) Internal hemorrhoids Leukoencephalopathy Major depression single episode, in partial remission ([facility]) Metacarpal bone fracture Mitral valve disorder Peripheral arterial occlusive disease ([facility]) Primary osteoarthritis involving multiple joints Vision loss COPD (chronic obstructive pulmonary disease) ([facility]) Diarrhea Drug-induced constipation H/O mechanical aortic valve replacement Age-related osteoporosis with current pathological fracture Care Management Physical deconditioning Chronic heart failure with preserved ejection fraction (HFpEF) ([facility]) Paroxysmal atrial fibrillation ([facility]) Hypertension associated with type 2 diabetes mellitus ([facility]) Encounter for prophylactic measures, unspecified Graves' disease Cirrhosis of liver without ascites, unspecified hepatic cirrhosis type ([facility]) Stage 3b chronic kidney disease ([facility]) OLIVE (acute kidney injury) ([facility]) Heart failure with mildly reduced ejection fraction (HFmrEF) ([facility]) Hyperthyroidism Medications: Current Outpatient Medications [...] capsule (1,000 Units total) by mouth daily. docusate sodium (COLACE) [...] by mouth nightly at bedtime. 90 tablet3 tiZANidine (ZANAFLEX) 4 MG tablet Take 1 tablet (4 mg total) by mouth every 6 (six) hours as needed. 30 tablet 0 traMADol (ULTRAM) 50 MG tablet Take 0.5 tablets (25 mg total) by mouth every 6 (six) hours as needed for Pain. tab (Patient not taking: Reported on 08/05/2023) TRULICITY 1.5 MG/0.5ML injection inject 1 syringe subcutaneously once a week (Patient not taking: Reported on 07/08/2023) 12 mL 0 venlafaxine XR (EFFEXOR-XR) 150 [...] 15 Time spent performing chart review (minutes): 8 Total time (minutes): 23 CASEY JOHNSON RN I reviewed the patient's status and education provided by CASEY JOHNSON RN. I agree with the findings and recommendations made. Cosigned by Sanjeev Webster DO at 08/05/2023 11:01 AM CDT documented in this encounter Plan of Treatment Upcoming Encounters Date Type Department Care Team (Late st Contact Info) Description 04/14/2024 2:00 PM CAPSULE FILLING MACHINE OPERATOR Office Visit [facility] Multispecialty Care - [facility] [address] [facility], [address] [place] [id number] Julio Pulido MD [address] [place] [address] documented as of this encounter Goals Goal Patient Goal Type Associated Problems Recent Progress Patient-Stated? Author Health - patient able to perform ADLs independently General On track(2023 9:49 AM CDT) Casey Corona, DALE Note: 12/17/23: Patient stated she is independent with ASL's. Establish Plan for Symptom Monitoring-CHF General On track(2023 11:36 AM CAPSULE FILLING MACHINE OPERATOR) Casey Corona, DALE Note: Patient will recognize symptoms [...] Symptom Monitoring-COPD General On track(2023 11:36 AM CAPSULE FILLING MACHINE OPERATOR) Casey Corona, DALE Note: Patient will recognize symptoms [...] Symptom Monitoring-DM General On track(2023 4:33 PM CAPSULE FILLING MACHINE OPERATOR) Casey Corona RN Note: Patient will [...] Symptom Monitoring-HTN General On track(2023 4:33 PM CAPSULE FILLING MACHINE OPERATOR) Casey Corona RN Note: Patient will monitor B/P several times per week , record readings and report to physician or CC if B/P consistently >130/80 Take your medications as prescribed. Follow up with your provider as scheduled. Take your blood pressure at least several times a week if able. documented as of this encounter Visit Diagnoses Diagnosis Chronic heart failure with preserved ejection fraction (HFpEF) ([facility])- Primary Chronic obstructive pulmonary disease, unspecified COPD type ([facility]) documented in this encounter Additional Health Concerns Assessment Noted Time PHQ-9 Depression Total Score: 13 023 3:56 PM CDT documented as of this encounter Care Teams Auto Body Repair Technician Relationship Specialty Start Date End Date Sanjeev Webster DO [address] [place] [id number] PCP - General FAMILY PRACTICE 09/25/20 Casey Johnson, RN [address] [place], [place] [phone] Glue Drier Operator (Ambulatory) REGISTERED NURSE 08/14/20 documented as of this encounter
--- OUTSIDE RECORDS SUMMARY | 2024-03-15 00:52 | XMS_ITS | Encounter Summary ---
Author Organization [facility] Address [facility] [place] [address] [place] [address] Care Team Providers Care Chief Learning Officer Name Role Phone Dianne Johnson RN Unavailable [phone] Sanjeev Webster DO Primary Care Provider + Reason for Visit * Reason Onset Date Comments Care Management 08/26/2023 Encounter Details Date Type Department Care Team (Late st Contact Info) Description 08/26/2023 Patient Outreach [facility] Family & Internal Medicine [address] [address] Dianne Johnson, RN [address] [place] [address] Care Management Social History Tobacco [...] Recorded Patient Health Questionnaire-2 Score 1 08/06/2023 [facility] Occupat ional Health - Occupational [...] Progress Notes * Dianne Johnson RN - 08/26/2023 4:10 PM CDT Contacted [facility] medical records department and spoke to Mary. Stated patient was D/C today. She will compile her chart and fax over medical records. If D/C summary not signed she will not be able to fax it. She will include this information on the cover sheet. 08/27/23: Received records from [facility]. Copy faxed to . documented in this encounter Plan of Treatment Upcoming Encounters Date Type Department Care Team (Late st Contact Info) Description 04/14/2024 2:00 PM TRANSFORMER ASSEMBLER Office Visit [facility] Multispecialty Care - [facility] [address] [facility], [address] [place] [address] Julio Pulido MD [address] [place] [id number] documented as of this encounter Goals Goal Patient Goal Type Associated Problems Recent Progress Patient-Stated? Author Health - patient able to perform ADLs independently General On track(2023 9:49 AM CDT) Dianne Corona RN Note: 12/17/23: Patient stated she is independent with ASL's. Establish Plan for Symptom Monitoring-CHF General On track(2023 11:36 AM TRANSFORMER ASSEMBLER) Dianne Corona, RN Note: Patient will recognize [...] Symptom Monitoring-COPD General On track(2023 11:36 AM TRANSFORMER ASSEMBLER) Dianne Corona RN Note: Patient will [...] Symptom Monitoring-DM General On track(2023 4:33 PM TRANSFORMER ASSEMBLER) Dianne oCrona RN Note: Patient will manage her diabetes [...] Symptom Monitoring-HTN General On track(2023 4:33 PM TRANSFORMER ASSEMBLER) No Johnson, Dianne R, RN Note: Patient [...] as of this encounter Care Teams Chief Learning Officer Relationship Specialty Start Date End Date Sanjeev Webster DO [address] [place] [address] [id number] PCP - General FAMILY PRACTICE 09/25/20 Dianne Johnson RN [address] [place] [address] Engagement Director (Ambulatory) REGISTERED NURSE 08/14/20 documented as of this encounter
--- OUTSIDE RECORDS SUMMARY | 2024-03-15 00:52 | XMS_ITS | Encounter Summary ---
Author Organization [facility] Address [facility] [place] [address] [place] [address] Care Team Providers Care Supervisor Order Takers Name Role Phone Dianne Johnson RN Unavailable [phone] Sanjeev Webster DO Primary Care Provider + Encounter Details Date Type Department Care Team (Late st Contact Info) Description 08/14/2023 10:40 AM CDT Laboratory Only [facility] Medical Group Family & Internal Medicine [id number] [place] [address] Sanjeev Webster DO [facility] [place] [address] Social History Tobacco Use Types [...] Recorded Patient Health Questionnaire-2 Score 1 08/06/2023 [facility] of Occupat [...] Contact Info) Description 04/14/2024 2:00 PM AIR ANALYSIS ENGINEERING TECHNICIAN Office Visit [facility] Medical Group Multispecialty Care - [facility] [address] [facility], [address] [place] [phone] Julio Pulido MD 3 [place] [address] documented as of this encounter Goals Goal Patient Goal Type Associated Problems Recent Progress Patient-Stated? Author Health - patient able to perform ADLs independently General On track(2023 9:49 AM CDT) Dianne Corona RN Note: 12/17/23: Patient stated she is independent with ASL's. Establish Plan for Symptom Monitoring-CHF General On track(2023 11:36 AM AIR ANALYSIS ENGINEERING TECHNICIAN) Dianne Corona RN Note: Patient will [...] Monitoring-COPD General On track(2023 11:36 AM AIR ANALYSIS ENGINEERING TECHNICIAN) Dianne Corona RN Note: Patient will [...] Monitoring-DM General On track(2023 4:33 PM AIR ANALYSIS ENGINEERING TECHNICIAN) Dianne Corona RN Note: Patient will [...] Monitoring-HTN General On track(2023 4:33 PM AIR ANALYSIS ENGINEERING TECHNICIAN) Dianne Corona RN Note: Patient will [...] Diagnosis Comments COLLECTION VENOUS BLOOD VENIPUNCTURE Routine 08/14/2023 12:00 PM CDT Type 2 diabetes mellitus with stage 3b chronic kidney disease, without long-term current use of insulin ([facility]) Heart failure with mid-range ejection fraction (HFmEF) ([facility]) Chronic anticoagulation Paroxysmal atrial fibrillation (CMS/HCC HHS/HCC) Hyperparathyroidism (CMS/HCC HHS/HCC) Hyperthyroidism PTH - INTACT Routine 08/14/2023 12:00 PM CDT Type 2 diabetes mellitus with stage 3b chronic kidney disease, without long-term current use of insulin (CMS/HCC HHS/HCC) Heart failure with mid-range ejection fraction (HFmEF) (CMS/HCC HHS/HCC) Chronic anticoagulation Paroxysmal atrial fibrillation (CMS/HCC HHS/HCC) Hyperparathyroidism (CMS/HCC HHS/HCC) Hyperthyroidism PROTHROMBIN TIME, VENOUS Routine 08/14/2023 12:00 PM CDT Type 2 diabetes mellitus with stage 3b chronic kidney disease, without long-term current use of insulin (CMS/HCC HHS/HCC) Heart failure with mid-range ejection fraction (HFmEF) (CMS/HCC HHS/HCC) Chronic anticoagulation Paroxysmal atrial fibrillation (CMS/HCC HHS/HCC) Hyperparathyroidism (CMS/HCC HHS/HCC) Hyperthyroidism ALBUMIN URINE RANDOM W/CREATININE Routine 08/14/2023 12:00 PM CDT Type 2 diabetes mellitus with stage 3b chronic kidney disease, without long-term current use of insulin (CMS/HCC HHS/HCC) Heart failure with mid-range ejection fraction (HFmEF) (CMS/HCC HHS/HCC) Chronic anticoagulation Paroxysmal atrial fibrillation (CMS/HCC HHS/HCC) Hyperparathyroidism (CMS/HCC HHS/HCC) Hyperthyroidism COMPREHENSIVE METABOLIC PANEL Routine 08/14/2023 12:00 PM CDT Type 2 diabetes mellitus with stage 3b chronic kidney disease, without long-term current use of insulin (CMS/HCC HHS/HCC) Heart failure with mid-range ejection fraction (HFmEF) (CMS/HCC HHS/HCC) Chronic anticoagulation Paroxysmal atrial fibrillation (CMS/HCC HHS/HCC) Hyperparathyroidism (CMS/HCC HHS/HCC) Hyperthyroidism LIPID PANEL Routine 08/14/2023 12:00 PM CDT Type 2 diabetes mellitus with stage 3b chronic kidney disease, without long-term current use of insulin (CMS/HCC HHS/HCC) Heart failure with mid-range ejection fraction (HFmEF) (CMS/HCC HHS/HCC) Chronic anticoagulation Paroxysmal atrial fibrillation (CMS/HCC HHS/HCC) Hyperparathyroidism (CMS/HCC HHS/HCC) Hyperthyroidism CBC W/DIFF AUTOMATED Routine 08/14/2023 12:00 PM CDT Type 2 diabetes mellitus with stage 3b chronic kidney disease, without long-term current use of insulin (CMS/HCC HHS/HCC) Heart failure with mid-range ejection fraction (HFmEF) (CMS/HCC HHS/HCC) Chronic anticoagulation Paroxysmal atrial fibrillation (CMS/HCC HHS/HCC) Hyperparathyroidism (CMS/HCC HHS/HCC) Hyperthyroidism THYROXINE, FREE (FT4) Routine 08/14/2023 12:00 PM CDT Type 2 diabetes mellitus with stage 3b chronic kidney disease, without long-term current use of insulin (CMS/HCC HHS/HCC) Heart failure with mid-range ejection fraction (HFmEF) (CMS/HCC HHS/HCC) Chronic anticoagulation Paroxysmal atrial fibrillation (CMS/HCC HHS/HCC) Hyperparathyroidism (CMS/HCC HHS/HCC) Hyperthyroidism THYROID STIM HORMONE TSH Routine 08/14/2023 12:00 PM CDT Type 2 diabetes mellitus with stage 3b chronic kidney disease, without long-term current use of insulin (CMS/HCC HHS/HCC) Heart failure with mid-range ejection fraction (HFmEF) (CMS/HCC HHS/HCC) Chronic anticoagulation Paroxysmal atrial fibrillation (CMS/HCC HHS/HCC) Hyperparathyroidism (CMS/HCC HHS/HCC) Hyperthyroidism VITAMIN D, 25 OH Routine 08/14/2023 12:0 0 PM CDT Type 2 diabetes mellitus with stage 3b chronic kidney disease, without long-term current use of insulin (CMS/HCC HHS/HCC) Heart failure with mid-range ejection fraction (HFmEF) (CMS/HCC HHS/HCC) Chronic anticoagulation Paroxysmal atrial fibrillation (CMS/HCC HHS/HCC) Hyperparathyroidism (CMS/HCC HHS/HCC) Hyperthyroidism documented in this encounter Results * VITAMIN D, 25 OH (08/14/2023 12:00 PM CDT) Pathologist [facility] VITAMIN D 25 HYDROXY TOTAL S/P/B 55.8 30 - 100 NG/ML 08/14/2023 7:44 PM CDT [facility] Comment: ? DEFICIENT ??<20 ?INSUFFICIENT 20-30 ?SUFFICIENT 30-100 08/14/2023 12:0 0 PM CDT Sanjeev Webster DO LABORATORY Final Re sult Performing Organization Address [facility] Co de Phone Number [facility] [address] [place] [address], [place] [phone] * ALBUMIN URINE RANDOM W/CREATININE (08/14/2023 12:00 PM CDT) MICROALBUMIN (U) 3.9 <20 MG/L 08/14/19 7:30 PM CDT [facility] CREATININE RANDOM (U) 24.5 MG/DL 08/14/2023 7:30 PM CDT [facility] ALBUMIN/CREAT RATIO 15.9 <30 MG/G 08/14/2023 7:30 PM CDT [facility] URINE SPECIMEN / Unknown 08/14/2023 12:00 PM CDT Sanjeev Webster DO URINE ORDERABLES Final R esult Performing Organization Address [facility] Co de Phone Number [facility] [address] [place] [address], [place] [phone] * (ABNORMAL) CBC W/DIFF AUTOMATED (08/14/2023 12:00 PM CDT) Pathologist [facility] WBC 5.03 4.00 - 10.80 x10'3/uL 08/14/2023 7:22 PM CDT [facility] RBC 3.13(L) 4.10 - 5.40 x10'6/uL 08/14/2023 7:22 PM CDT [facility] HGB 8.7(L) 12.0 - 16.0 G/DL 08/14/2023 7:22 PM CDT [facility] HCT 29.5(L) 36.0 - 47.0 % 08/14/2023 7:22 PM CDT [facility] MCV 94.2 78.0 - 100.0 FL 08/14/2023 7:22 PM CDT [facility] MCH 27.8 27.0 - 31.0 PG 08/14/2023 7:22 PM CDT [facility] MCHC 29.5(L) 33.0 - 36.0 G/DL 08/14/2023 7:22 PM CDT [facility] RDW 15.0(H) 11.5 - 14.5 % 08/14/2023 7:22 PM CDT [facility] PLT 316 150 - 350 x10'3/uL 08/14/2023 7:22 PM CDT [facility] MPV 12.9(H) 7.4 - 10.4 FL 08/14/2023 7:22 PM CDT [facility] DIFFERENTIAL TYPE AUTOMATED DIFFERENTIAL 08/14/2023 7:22 PM CDT [facility] NEUTROPHILS % 58.3 % 08/14/2023 7:22 PM CDT [facility] LYMPHOCYTES % 25.6 % 08/14/2023 7:22 PM CDT [facility] MONOCYTES % 11.9 % 08/14/2023 7:22 PM CDT [facility] EOSINOPHIL[facility] % 3.6 % 08/14/2023 7:22 PM CDT [facility] BASOPHILS % 0.6 % 08/14/2023 7:22 PM CDT [facility] IMMATURE GRANS % 0.0 % 08/14/2023 7:22 PM CDT [facility] ABS. NEUTROPHILS 2.93 1.60 - 8.30 x10'3/uL 08/14/2023 7:22 PM CDT [facility] ABS. LYMPHOCYTES 1.29 0.80 - 4.70 x10'3/uL 08/14/2023 7:22 PM CDT [facility] ABS. MONOCYTES 0.60 0.00 - 1.50 x10'3/uL 08/14/2023 7:22 PM CDT [facility] ABS. EOSINOPHILS 0.18 0.00 - 0.40 x10'3/uL 08/14/2023 7:22 PM CDT [facility] ABS. BASOPHILS 0.03 0.00 - 0.20 x10'3/uL 08/14/2023 7:22 PM CDT [facility] ABS. IMMATURE GRANULOCYTES 0.00 0.00 - 0.03 x10'3/uL 08/14/2023 7:22 PM CDT [facility] 08/14/2023 12:0 0 PM CDT us Sanjeev Webster DO LABORATORY Final Re sult [facility] [address] [place] [address], * (ABNORMAL) COMPREHENSIVE METABOLIC PANEL (08/14/2023 12:00 PM CDT) [facility] SODIUM S/P/B 144 136 - 145 MMOL/L 08/14/2023 7:44 PM CDT [facility] POTASSIUM S/P/B 4.4 3.5 - 5.1 MMOL/L 08/14/2023 7:44 PM CDT [facility] CHLORIDE S/P/B 108(H) 98 - 107 MMOL/L 08/14/2023 7:44 PM CDT [facility] CO2 32.1(H) 21 - 32 MMOL/L 08/14/2023 7:44 PM T [facility] GLUCOSE 93 70 - 99 MG/DL 08/14/2023 7:44 PM T [facility] BUN 21(H) 7 - 18 MG/DL 08/14/2023 7:44 PM [facility] CREATININE S/P/B 1.26(H) 0.55 - 1.02 MG/DL 08/14/2023 7:44 PM T [facility] CALCIUM S/P/B 9.4 8.4 - 10.5 MG/DL 08/14/2023 7:44 PM T [facility] BILIRUBIN TOTAL S/P/B 0.3 0.2 - 1.0 MG/DL 08/14/2023 7:44 PM [facility] ALKALINE PHOSPHATASE S/P/B 72 55 - 142 U/L 08/14/2023 7:44 PM T [facility] AST 15 15 - 37 U/L 08/14/2023 7:44 PM T [facility] ALT 14 14 - 59 U/L 08/14/2023 7:44 PM T [facility] TOTAL PROTEIN S/P/B 6.4 6.4 - 8.2 G/DL 08/14/2023 7:44 PM T [facility] ALBUMIN S/P/B 3.2(L) 3.4 - 5.0 G/DL 08/14/2023 7:44 PM T [facility] ANION GAP 3.9(L) 5 - 15 MMOL/L 08/14/2023 7:44 PM T [facility] Comment:REFERENCE RANGE NOT ESTABLISHED OSMOLALITY (CALC) 301 MOSM/KG 024 7:44 PM T [facility] Comment:REFERENCE RANGE NOT ESTABLISHED GFR ESTIMATE 43(L) >90 ML/MIN/1. 73 M2 08/14/2023 7:44 PM CDT [facility] GFR NOTES GFR REFERENCE S: 08/14/2023 7:44 PM CDT [facility] Comment: THE ESTIMATED GFR IS CALCULATED USING [...] ml/min/1.73 m2 G5,KIDNEY FAILURE: <15 ml/min/1.73 m2 08/14/2023 12:0 0 PM CDT Sanjeev Webster LABORATORY Final Re sult Performing Organization Address City/[facility]/ZIP Co de Phone Number [facility] [address] [place] [address], [place] [phone] * (ABNORMAL) PTH - INTACT (08/14/2023 12:00 PM CDT) Pathologist [facility] PTH 103.8(H) 18.4 - 80.1 PG/ML 08/14/2023 10:02 PM CDT [facility] Comment: ASSAY PERFORMED BY CHEMILUMINESCENCE METHODOLOGY USING SIEMENS CENTAUR XPT REAGENT. PATIENT RESULTS DETERMINED BY ASSAYS USING DIFFERENT MANUFACTURERS FOR METHODS MAY NOT BE COMPARABLE. 08/14/2023 12:0 0 PM CDT Sanjeev Webster DO LABORATORY Final Re sult Performing Organization Address City/[facility]/ZIP Co de Phone Number [facility] [address] [place] [address], [place] [phone] [id number] * (ABNORMAL) LIPID PANEL (08/14/2023 12:00 PM CDT) CHOLESTEROL 201(H) <200 MG/DL 08/14/2023 7:44 PM CDT [facility] TRIGLYCERIDES 97 <150 MG/DL 08/14/2023 7:44 PM CDT [facility] HDL 66 >40 MG/DL 08/14/2023 7:44 PM CDT [facility] LDL-C 116(H) <100 MG/DL 08/14/2023 7:44 PM CDT [facility] VLDL CALCULATION 19 5 - 28 MG/DL 08/14/2023 7:44 PM CDT [facility] CHOL/HDL RATIO 3.0 0.0 - 4.0 08/14/2023 7:44 PM CDT [facility] LDL/HDL 1.8 0.41 - 2.13 08/14/2023 7:44 PM CDT [facility] NON HDL CHOLESTEROL 135 <140 MG/DL 08/14/2023 7:44 PM CDT [facility] 08/14/2023 12:0 0 PM CDT Sanjeev Webster DO LABORATORY Final Re sult [facility] [address] [place] [address], * (ABNORMAL) PROTIME/INR, VENOUS (08/14/2023 12:00 PM CDT) PROTIME 37.0(H) 9.3 - 11.6 SEC 08/14/2023 2:42 PM CDT [facility] INR 3.9(H) 0.9 - 1.1 08/14/2023 2:42 PM CDT [facility] Comment: TREATMENT OR PROPHYLAXIS AGAINST: ?? THERAPEUTIC RANGE (INR): ?VENOUS THROMBOSIS ? 2.0-3.0 ?PULMONARY EMBOLUS ? 2.0-3.0 ?? MECHANICAL PROSTHETIC VALVES ? 2.5-3.5 08/14/2023 12:0 0 PM CDT Sanjeev Webster DO LABORATORY Final Re sult Performing Organization Address [facility] de Phone Number [address] [address], * THYROID STIM HORMONE TSH (08/14/2023 12:00 PM CDT) TSH 3.146 0.358 - 3.740 uIU/ML 08/14/2023 7:44 PM CDT [facility] 08/14/2023 12:0 0 PM CDT Sanjeev Webster DO LABORATORY Final Re sult Performing Organization Address [facility] de Phone Number [id number] [place] [address], * (ABNORMAL) THYROXINE, FREE (FT4) (08/14/2023 12:00 PM CDT) FREE T4 0.68(L) 0.76 - 1.46 NG/DL 08/14/2023 7:44 PM CDT [facility] 08/14/2023 12:0 0 PM CDT Sanjeev Webster DO LABORATORY Final Re sult [facility] [address] [facility] [address], documented in this encounter Visit Diagnoses Diagnosis Type 2 diabetes mellitus with stage 3b chronic kidney disease, without long-term current use of insulin ([facility]) Heart failure with mid-range ejection fraction (HFmEF) ([facility]) Chronic anticoagulation Encounter for long-term (current) use of anticoagulants Paroxysmal atrial fibrillation ([facility]) Atrial fibrillation Hyperparathyroidism ([facility]) Hyperparathyroidism, unspecified Hyperthyroidism Thyrotoxicosis without mention of goiter or other cause, without mention of thyrotoxic crisis or storm documented in this encounter Additional Health Concerns Assessment Noted Time PHQ-9 Depression Total Score: 13 023 3:56 PM CDT documented as of this encounter Care Teams Supervisor Order Takers Relationship Specialty Start Date End Date Sanjeev Webster DO [address] [place] [address] PCP - General FAMILY PRACTICE 09/25/20 Dianne Johnson, RN [address] [place] [address] Chemical Engineering Professor (Ambulatory) REGISTERED NURSE 08/14/20 documented as of this encounter
--- OUTSIDE RECORDS SUMMARY | 2024-03-15 00:52 | XMS_ITS | Encounter Summary ---
Author Organization [facility] Address [facility] [place] [address] [place] [address] Care Team Providers Care Urologist Physician Name Role Phone Dianne Johnson RN Unavailable [phone] Sanjeev Webster DO Primary Care Provider + Reason for Visit * Reason Comments Echo (SCAN) Encounter Details Date Type Department Care Team (Latest Contact Info) Description 08/24/2023 Scan HEALTH INFO SRVCS Scanned, Doc Med Group Echo (SCAN) Social History Tobacco Use Types Packs/Day [...] Score 1 08/06/2023 [facility]ational Stress Questionnaire Answer Date [...] st Contact Info) Description 04/14/2024 2:00 PM CPC CODER Office Visit [facility] Medical Group Multispecialty Care - [facility] [address] [facility], [address] [place] [address] Julio Pulido MD [address] [place] [address] documented as of this encounter Goals Goal Patient Goal Type Associated Problems Recent Progress Patient-Stated? Author Health - patient able to perform ADLs independently General On track(2023 9:49 AM CDT) Dianne Corona RN Note: 12/17/23: Patient stated she is independent with ASL's. Establish Plan for Symptom Monitoring-CHF General On track(2023 11:36 AM CPC CODER) Dianne Corona RN Note: Patient will recognize [...] Symptom Monitoring-COPD General On track(2023 11:36 AM CPC CODER) Dianne Corona RN Note: Patient will recognize [...] Symptom Monitoring-DM General On track(2023 4:33 PM CPC CODER) Dianne Corona RN Note: Patient will manage [...] Symptom Monitoring-HTN General On track(2023 4:33 PM CPC CODER) Dianne Corona, RN Note: Patient will monitor B/P several times per week , record readings and report to physician or CC if B/P consistently >130/80 Take your medications as prescribed. Follow up with your provider as scheduled. Take your blood pressure at least several times a week if able. documented as of this encounter Procedures Procedure Name Priority Date/Time Associated Diagnosis Comments ECHO GENERIC (SCAN ORDER) 08/24/2023 documented in this encounter Results * ECHO GENERIC (SCAN ORDER) (08/24/2023) Anatomical Region Laterality Modality Other 08/24/2023 us Doc Med Group Scanned SCANNING Final Resu lt documented in this encounter Visit Diagnoses Not on filedocumented in this encounter Additional Health Concerns Assessment Noted Time PHQ-9 Depression Total Score: 13 023 3:56 PM CDT documented as of this encounter Care Teams Urologist Physician Relationship Specialty Start Date End Date Sanjeev Webster DO [address] [place] [address] PCP - General FAMILY PRACTICE 09/25/20 Dianne Johnson, RN [address] [place] [address] Pharmacy Intake Technician (Ambulatory) REGISTERED NURSE 08/14/20 documented as of this encounter
--- OUTSIDE RECORDS SUMMARY | 2024-03-15 00:52 | XMS_ITS | Encounter Summary ---
Author Organization [facility] Address [facility] [place], [place] [address] [place] [address] Care Team Providers Care [employer] Supervisor Name Role Phone Dianne Johnson RN Unavailable [phone] Sanjeev Webster DO Primary Care Provider + Reason for Visit * Reason Onset Date Comments Results 08/20/2023 Encounter Details Date Type Department Care Team (Late st Contact Info) Description 08/20/2023 Telephone [facility] Medical Group Family & Internal Medicine [address] [place] [address] Sanjeev Webster DO [facility] [place] [address] Results Social History Tobacco Use [...] Recorded Patient Health Questionnaire-2 Score 1 08/06/2023 [facility] Occup[facility] ional Health - [...] Progress Notes * Sanjeev Webster DO - 08/25/2023 12:52 PM CDT Will send to [facility] to follow for TCM upon discharge. * Yenifer Wolf MA - 08/25/2023 10:03 AM CDTAddended by: YENIFER WOLF on: 08/25/2023 10:03 AM Modules accepted: Orders * Yenifer Wolf MA - 08/25/2023 9:49 AM CDT Called zIzy and informed her of medication changes. The patient is currently admitted at [facility] for her heart. I cannot see records as of this writing. * Sanjeev Webster DO - 08/22/2023 9:45 PM CDT Continue simvastatin for now to avoid side effects. Restart ferrous sulfate 324 mg daily. Will recheck labs anemia labs at next OV. * Yenifer Wolf MA - 08/20/2023 10:07 AM CDT Spoke with the Izzy and she states the patient is taking simvastatin as prescribed. The patient is not currently iron. Please advise on starting the medication. Went over result note with izzy and andvised her of the SOB concern and the recommendation given. She v/u to the plan * Yenifer Wolf MA - 08/20/2023 9:25 AM CDT Spoke with patient and informed her of lab results. The patient v/u and LMOM to inform Izzy (daughter in law). Labs results faxed to patient's endo via right fax The patient voiced having SOB with no other sx. The patient states it has improved as of this writing. The patient was instructed to call back or go to the ER for evaluation if it should happen again. Especially with no other sx to report. Patient v/u. * Yenifer Wolf MA - 08/20/2023 8:49 AM CDT ----- Message from Sanjeev Webster DO sent at 08/19/2023 10:26 AM CDT ----- Parathyroid testing is improved from previous check. TSH is improved with low Free T4; would not change meds yet and differ changes to endocrine. Cholesterol is higher than ideal; is pt taking simvastatin as prescribed? Pt's anemia is worsened; is pt taking iron? I'd like to do some anemia blood testing. PT/INR is still supratheraeputic but improved from previous. I don't believe we changed her warfarin dose; no change again today. Other testing acceptable. I'd like to do the anemia testing andvenous PT/INR next week. Send back to myself to order testing. documented in this encounter Plan of Treatment Upcoming Encounters Date Type Department Care Team (Late st Contact Info) Description 04/14/2024 2:00 PM COMMUNITY MENTAL HEALTH SOCIAL WORKER Office Visit [facility] Medical Group [facility] [address] [facility], [address] [place] [phone] Julio Pulido MD [address] [place] [address] documented as of this encounter Goals Goal Patient Goal Type Associated Problems Recent Progress Patient-Stated? Author Health - patient able to perform ADLs independently General On track(2023 9:49 AM CDT) Dianne Corona RN Note: 12/17/23: Patient stated she is independent with ASL's. Establish Plan for Symptom Monitoring-CHF General On track(2023 11:36 AM COMMUNITY MENTAL HEALTH SOCIAL WORKER) Dianne Corona RN Note: Patient will [...] Symptom Monitoring-COPD General On track(2023 11:36 AM COMMUNITY MENTAL HEALTH SOCIAL WORKER) Dianne Corona RN Note: Patient will [...] Symptom Monitoring-DM General On track(2023 4:33 PM COMMUNITY MENTAL HEALTH SOCIAL WORKER) No Johnson, Dianne R, RN Note: Patient will manage her diabetes [...] Symptom Monitoring-HTN General On track(2023 4:33 PM COMMUNITY MENTAL HEALTH SOCIAL WORKER) No Dianne Johnson RN Note: Patient will [...] documented as of this encounter Care Teams [employer] Supervisor Relationship Specialty Start Date End Date Sanjeev Webster DO [address] [place] [address] PCP - General FAMILY PRACTICE 09/25/20 Dianne Johnson, RN [address] [place] [address] Railroad Engineer (Ambulatory) REGISTERED NURSE 08/14/20 documented as of this encounter
--- OUTSIDE RECORDS SUMMARY | 2024-03-15 00:52 | XMS_ITS | Encounter Summary ---
Author Organization [facility] Address [facility] [place] [address] [place] [address] Care Team Providers Care Supervisor Volunteer Services Name Role Phone Casey Johnson RN Unavailable [phone] Sanjeev Webster DO Primary Care Provider + Reason for Visit * Reason Onset Date Comments Care Management 07/27/2023 Encounter Details Date Type Department Care Team (Late st Contact Info) Description 07/27/2023 Patient Outreach [facility] Family & Internal Medicine [address] [id number] Casey Johnson, RN [address] [place] [address] Care Management Social History Tobacco [...] Recorded Patient Health Questionnaire-2 Score 6 12/11/2022 [facility] [...] place to sleep or slept in a fdc (including now)? No 08/26/2022 Comments No Sex [...] Progress Notes * Casey Johnson RN - 07/27/2023 1:59 PM CDT Chronic Care Management: Patient concerns or urgent matters that need addressed: None identified during this call. Patient Status: Contacted patient and congratulated her on getting INR therapeutic. According to PCP note it statedwill recheck at next OV on 08/06/23. Patient asked if CC will leave on Izzy's voice mail so she is aware. Patient stated after talking to CC on 07/08/23 about warfarin interacting with certain foods such as foods with increased amounts of vitamin k, she is really watching it. Patient aware if she eats a salad once a week to continue eating a salad once a week. Encouraged to be consistent with what she iseating. Patient is aware. Denies any issues with COPD exacerbation at this time. SOB is stable. Patient stated she doesn't have any swelling or s/s of CHF exacerbation s/s. Patient misplaced lancet injector. Stated its somewhere in her home. If she can't find it she will notify CC. Patient has Trulicity in refrigerator. She is not using it. Stated she will await for Ozempic to come in. Stated she received a call about it today and she is aware she will get a call from PCP office. Patient thanked CC for calling. No needs noted at this time. 07/27/23: Left detailed message with Izzy to inform next INR is due 08/06/23 and to continue what patient is doing. Plan of Care: intake coordinator will continue to follow up by [...] Center 08/06/2023 11:20 AM Sanjeev Webster DO FMMRVL [facility] 08/11/2023 11:00 AM ALEX [facility]CON[facility] 08/11/2023 12:00 PM ALEX OF OPEN [facility] (CONVENIENT CARE) [facility] 09/04/2023 1:00 PM Sania Gomez MD [facility] 04/14/2024 2:00 PM JulioMD NALINI Leonardo MSC [facility] Quality care gaps: Health Maintenance [...] test Chronic anticoagulation Coronary artery disease involving tribe coronary artery of tribe heart without angina pectoris Dyspnea on exertion H/O mechanical aortic valve replacement Hypertensive heart disease with congestive heart failure ([facility]) LBBB (left bundle branch block) Myopathy VAZQUEZ (obstructive sleep apnea) Paroxysmal atrial flutter ([facility]) Benign hypertension with CKD (chronic kidney disease) stage III ([facility]) Memory deficits Hearing deficit, bilateral History of cataract extraction, unspecified laterality Vitamin D deficiency Hypercalcemia Chronic frontal sinusitis Constipation, unspecified constipation type Chronic bilateral low back pain without sciatica Iron deficiency anemia, unspecified iron deficiency anemia type Disorder of skin of trunk Anemia Body mass index (BMI) 31.0-31.9, adult 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[facility]) Benign hypertension with stage 3b chronic kidney disease ([facility] Cobalamin deficiency Compression fracture of thoracic vertebra ([facility]) Depression Diabetic polyneuropathy ([facility]) Disorder of rotator cuff Diverticular disease Dysphagia Elevated troponin Gastroesophageal reflux disease without esophagitis Hyperlipidemia, unspecified hyperlipidemia type Vascular dementia ([facility]) Unknown and unspecified causes of morbidity Syncope, unspecified syncope type Wrist joint pain Respiratory illness Requires lifelong warfarin therapy Hyperparathyroidism ([facility]) Presence of prosthetic heart valve Plantar fascial fibromatosis Peripheral neuropathy Parathyroid adenoma Polymyalgia rheumatica ([facility]) Osteoporosis Numbness Muscle cramps Closed stable burst fracture of sixth thoracic vertebra, initial encounter ([facility]) Chest pain Contusion of scalp Knee pain Localized, primary osteoarthritis Osteoarthritis of knee Traumatic closed displaced fracture of distal end of radius Shoulder joint pain Hyperlipidemia associated with type 2 diabetes mellitus ([facility]) PVD (peripheral vascular disease) ([facility]) Hematoma Anxiety Diastolic heart failure ([facility]) Internal hemorrhoids Leukoencephalopathy Major depression single episode, in partial remission ([facility]) Metacarpal bone fracture Mitral valve disorder Peripheral arterial occlusive disease ([facility]) Primary osteoarthritis involving multiple joints Vision loss COPD (chronic obstructive pulmonary disease) ([facility]) Diarrhea Drug-induced constipation H/O mechanical aortic valve replacement Age-related osteoporosis with current pathological fracture Care Management Physical deconditioning Chronic heart failure with preserved ejection fraction (HFpEF) ([facility]) Paroxysmal atrial fibrillation ([facility]) Hypertension associated with type 2 diabetes mellitus ([facility]) Encounter for prophylactic measures, unspecified Graves' disease Cirrhosis of liver without ascites, unspecified hepatic cirrhosis type ([facility]) Stage 3b chronic kidney disease ([facility]) OLIVE (acute kidney injury) ([facility]) Heart failure with mildly reduced ejection fraction (HFmrEF) ([facility]) Hyperthyroidism Medications: Current Outpatient Medications [...] by mouth nightly at bedtime. 90 tablet3 TRULICITY 1.5 MG/0.5ML injection inject 1 syringe [...] Patient Time spent with patient (minutes): 16 Time spent performing chart review (minutes): 6 Total time (minutes): 22 CASEY JOHNSON RN I reviewed the patient's status and education provided by CASEY JOHNSON RN. I agree with the findings and recommendations made. Cosigned by Sanjeev Webster DO at 07/28/2023 1:21 PM CDT documented in this encounter Plan of Treatment Upcoming Encounters Date Type Department Care Team (Late st Contact Info) Description 04/14/2024 2:00 PM [employer] Office Visit [facility] Multispecialty Care - [facility] [address], [address] [place] [phone] Julio Pulido MD [address] [place] [address] documented as of this encounter Goals Goal Patient Goal Type Associated Problems Recent Progress Patient-Stated? Author Health - patient able to perform ADLs independently General On track(2023 9:49 AM CDT) Casey Corona RN Note: 12/17/23: Patient stated she is independent with ASL's. Establish Plan for Symptom Monitoring-CHF General On track(2023 11:36 AM [employer]) Casey Corona RN Note: Patient will recognize [...] Symptom Monitoring-COPD General On track(2023 11:36 AM [employer]) Casey Corona RN Note: Patient will recognize [...] Symptom Monitoring-DM General On track(2023 4:33 PM [employer]) Casey Corona RN Note: Patient will manage [...] Symptom Monitoring-HTN General On track(2023 4:33 PM [employer]) Casey Corona RN Note: Patient will monitor [...] disease, without long-term current use of insulin ([facility])- Primary Chronic heart failure with preserved ejection fraction (HFpEF) ([facility]) Chronic obstructive pulmonary disease, unspecified COPD type ([facility]) documented in this encounter Additional Health Concerns Assessment Noted Time PHQ-9 Depression Total Score: 13 023 3:56 PM CDT documented as of this encounter Care Teams Supervisor Volunteer Services Relationship Specialty Start Date End Date Sanjeev Webster DO [address] [place] [id number] PCP - General FAMILY PRACTICE 09/25/20 Casey Johnson, RN [address] [place] [address] Typesetting Machine Operator/Tender (Ambulatory) REGISTERED NURSE 08/14/20 documented as of this encounter
--- OUTSIDE RECORDS SUMMARY | 2024-03-15 00:52 | XMS_ITS | Encounter Summary ---
Author Organization [facility] Address [facility] 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 Name Role Phone Dianne Johnson RN Unavailable [phone] Sanjeev Webster DO Primary Care Provider + Reason for Visit * Reason Comments Pharyngitis Patient presents for 6 week follow up Encounter Details Date Type Department Care Team (Late st Contact Info) Description 08/06/2023 11:20 AM CDT Office Visit [facility] Family & Internal Medicine [address] [address] Sanjeev Webster DO [facility] [place], [place] [id number] Pharyngitis (Patient presents for 6 week follow up ) Social History Tobacco Use Types Packs/Day [...] Recorded Patient Health Questionnaire-2 Score 1 08/06/2023 [employer] Occup[employer] ional Health - Occupational Stress [...] Sign Reading Time Taken Comments Blood Pressure 120/66 08/06/2023 11:37 AM CDT Pulse 67 08/06/2023 11:37 AM CDT Temperature 36.4 ??C (97.6 ??F) 08/06/2023 11:37 AM C DT Respiratory Rate 16 08/06/2023 11:37 AM CDT Oxygen Saturation 96% 08/06/2023 11:37 AM CDT Inhaled Oxygen Concentration - - Weight 84.1 kg (185 lb 6.4 oz) 08/06/2023 11:37 AM CDT Height 165.1 cm (5' 5 ) 08/06/2023 11:37 AM CDT Body Mass Index 30.85 08/06/2023 11:37 AM CDT documented in this encounter [...] Date Author Status No 08/26/2022 7:46 PM Idniana Call RN Active documented in this encounter Progress Notes * Sanjeev Webster, - 08/06/2023 11:20 AM CDT Images from the original note were not included. GENERAL OFFICE VISIT Encounter Date: 08/06/2023 Chief Complaint: 78-year-old female presents for Pharyngitis (Patient presents for 6 week follow up ) HPI: Pt went to ER on 08/02/23. Pt fell and hurt her wrist. She was seen at [facility] on that day and wasdiagnosed with a sprain. She has it wrapped today. It is not worse at this time. Pt needs PT/INR done today. Pt does not have any bleeding issues today. Office Visit on 08/06/2023 Component Date Value Ref Range Status HGB A1C 08/06/2023 6.5 % Final PROTIME WHOLE BLOOD 08/06/2023 4.8 Final Patient has Type 2 Diabetes. Patient has had diabetes for multiple years. Medications include Trulicity, which she doesn't take consistently as she wasn't sure if she should. BS logs range: doesn't check. Patient's weight has gone up 1 lbs. Pt has neuropathy, CKD 3b, and PAD, both of which are stable. Pt is on gabapentin for neuropathy. No claudication at this time. HGB A1C Date Value Ref Range Status 08/06/2023 6.5 % Final 01/12/2023 6.2 % Final 07/07/2022 6.6 % Final 01/13/2022 6.2 % Final 01/13/2022 6.2 % Final Patient presents for major depressive disorder. Pt has had this for multiple years. Concurrent psychiatric conditions include anxiety. Pt is currently taking venlafaxine and Xanax prn. Pt does not see counseling. Pt's symptoms are adequately controlled. Patient would like to continue current medications as prescribed. Patient presents for follow-up on essential hypertension. Patient has had hypertension for multipleyears. Her levels are controlled today. Current medications include metoprolol, furosemide, and lisinopril. Patient's blood pressure is elevated today. No side effects noted from medications. Pt is noted to have associated T2DM and CKD stage 3b. Pt has vascular dementia and saccular aneurysm. No recent changes regarding her dementia; it is stable. Pt follows with Dr. Pulido for saccular aneurysm; last check on 05/14/23 showed no significant change. Pt has multiple cardiac issues for which she follows now with Dr. Gomez. These include mechanical aortic valve replacement, chronic anticoagulation, paroxysmal atrial flutter & fibrillation,hx of NSTEMI, CAD without angina, and HFpEF. Pt has a mechanical [facility] Lj aortic valve. She is on warfarin; we are managing this. She is no longer on amiodarone due to hyperthyroidism. Pt is on warfarin, rosuvastatin, furosemide, lisinopril, Lasix, and metoprolol. Pt has polymyalgia rheumatica. Pt is not currently on specific medication for this; she does have chronic pain issues. She is stable. Patient presents for follow-up on HLD. Patient has had HLD for multiple years. Pt has associated T2DM. Current medications include atorvastatin. Current side effects include none. Patient does not need labs drawn today. Pt has been evaluated for cirrhosis previously based upon imaging. Her lab testing has been unremarkable for this. We have opted to monitor this for now given pt's multiple other co-morbidities, difficulty of access to specialists, and lack of symptoms. Pt has emphysema. She denies coughing or SOB again today. She uses albuterol as needed. Her PFT showed pattern consistent with COPD. Review of Systems Constitutional: Negative for fever. Respiratory: Negative for shortness of breath. Cardiovascular: Negative for chest pain. Gastrointestinal: Negative for abdominal pain. Psychiatric/Behavioral: Stable All other systems reviewed and are negative. Patient Active Problem List Diagnosis Abnormal stress test Chronic anticoagulation Coronary artery disease involving [place] coronary artery of [place] heart without angina pectoris H/O mechanical aortic valve replacement Hypertensive heart disease with congestive heart failure ([facility]) LBBB (left bundle branch block) Myopathy VAZQUEZ (obstructive sleep apnea) Paroxysmal atrial flutter ([facility]) Benign hypertension with CKD (chronic kidney disease) stage III ([facility]) Memory deficits Hearing deficit, bilateral History of cataract extraction, unspecified laterality Vitamin D deficiency Hypercalcemia Chronic frontal sinusitis Constipation, unspecified constipation type Chronic bilateral low back pain without sciatica Iron deficiency anemia, unspecified iron deficiency anemia type Disorder of skin of trunk Anemia Body mass index (BMI) 31.0-31.9, adult 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[facility]) Benign hypertension with stage 3b chronic kidney disease ([facility]) Cobalamin deficiency Compression fracture of thoracic vertebra ([facility]) Depression Diabetic polyneuropathy ([facility]) Disorder of rotator cuff Diverticular disease Dysphagia Elevated troponin Gastroesophageal reflux disease without esophagitis Hyperlipidemia, unspecified hyperlipidemia type Vascular dementia ([facility]) Unknown and unspecified causes of morbidity Syncope, unspecified syncope type Wrist joint pain Requires lifelong warfarin therapy Hyperparathyroidism ([facility]) Presence of prosthetic heart valve Plantar fascial fibromatosis Peripheral neuropathy Parathyroid adenoma Polymyalgia rheumatica ([facility]) Osteoporosis Numbness Muscle cramps Closed stable burst fracture of sixth thoracic vertebra, initial encounter ([facility]) Chest pain Contusion of scalp Knee pain Localized, primary osteoarthritis Osteoarthritis of knee Traumatic closed displaced fracture of distal end of radius Shoulder joint pain Hyperlipidemia associated with type 2 diabetes mellitus [facility]) Hematoma Anxiety Diastolic heart failure ([facility]) Internal hemorrhoids Leukoencephalopathy Major depression single episode, in partial remission ([facility] Metacarpal bone fracture Mitral valve disorder Peripheral arterial occlusive disease ([facility]) Primary osteoarthritis involving multiple joints Vision loss COPD (chronic obstructive pulmonary disease) ([facility]) Diarrhea Drug-induced constipation H/O mechanical aortic valve replacement Age-related osteoporosis with current pathological fracture Care Management Physical deconditioning Chronic heart failure with preserved ejection fraction (HFpEF) ([facility]) Paroxysmal atrial fibrillation ([facility]) Hypertension associated with type 2 diabetes mellitus ([facility]) Encounter for prophylactic measures, unspecified Graves' disease Cirrhosis of liver without ascites, unspecified hepatic cirrhosis type ([facility]) Stage 3b chronic kidney disease ([facility]) OLIVE (acute kidney injury) ([facility]) Heart failure with mildly reduced ejection fraction (HFmrEF) ([facility]) Hyperthyroidism 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 Anxiety Atrial fibrillation with rapid ventricular response ([facility]) 08/22/2020 Atrial flutter ([facility]) Cataract Chronic anticoagulation due to mechanical heart valve Chronic pain Diabetes mellitus ([facility]) H/O mechanical aortic valve replacement 2003 [...] Social History Narrative Not on file Social Determinants of Health [...] 10 min Stress: Stress Concern Present (08/26/2022) [employer] - Occupational Stress Questionnaire Feeling of Stress : To some extent Social Connections: Moderately Isolated (08/26/2022) Social Connection and Isolation Panel [NHANES] Frequency of Communication with Friends and Family: Three times a week Frequency of Social Gatherings with Friends and Family: Three times a week Attends [employer] Services: More than 4 times per year [...] History Administered Date(s) Administered Fluzone High Dose - >Age 65 (Prefilled Syringe) 12/03/2017, 12/13/2018, 02/27/2020, 12/13/2020, 12/23/2021, 01/12/2023 Influenza 02/26/2012, 12/02/2012, 11/30/2013, 12/23/2013, 12/27/2014 Influenza Adult [...] (Generic) 06/05/2016, 09/05/2020 Tetanus/Diptheria 07/22/2014 Zoster (Zostavax) 20515 Unt/0.65Ml 12/25/2015 Current Outpatient Medications Medication Sig [...] total) by mouth daily. 30 tablet 1 cinacalcet (SENSIPAR) 30 MG tablet Take 0.5 tablets (15 mg total) by mouth daily. No current facility-administered medications for this visit. [...] twice daily or as needed for constipation. furosemide (LASIX) 20 MG tablet Take 1 [...] total) by mouth 2 (two) times daily. omeprazole (PRILOSEC) 40 MG capsule Take 1 capsule (40 mg total) by mouth daily. potassium chloride CR (K-TAB) 10 MEQ Tab CR tablet Take 1 tablet by mouth once daily predniSONE (DELTASONE) 20 MG tablet Take 3 tablets for three days, then take 2 tablets for three days, then take 1 tablet for three days simvastatin (ZOCOR) 10 MG tablet Take 1 tablet (10 mg total) by mouth nightly at bedtime. tiZANidine (ZANAFLEX) 4 MG tablet Take 1 tablet (4 mg total) by mouth every 6 (six) hours as needed. traMADol (ULTRAM) 50 MG tablet Take 0.5 tablets (25 mg total) by mouth every 6 (six) hours as needed for Pain. tab TRULICITY 1.5 MG/0.5ML injection inject 1 syringe subcutaneously once a week venlafaxine XR (EFFEXOR-XR) 150 MG 24 hr capsule Take 1 capsule by mouth once daily warfarin (COUMADIN) 2 MG tablet Take 1 tablet (2 mg total) by mouth daily. warfarin (COUMADIN) 5 MG tablet Take 1 tablet (5 mg total) by mouth daily. cinacalcet (SENSIPAR) 30 MG tablet Take 0.5 tablets (15 mg total) by mouth daily. No current [...] (see comment) and Rash Objective: Filed Vitals: 08/06/23 1137 BP: 120/66 Pulse: 67 Resp: 16 Temp: 97.6 ??F (36.4 ??C) TempSrc: Skin SpO2: 96% Weight: 84.1 kg (185 lb 6.4 oz) Height: 1.651 m (5' 5 ) Physical Exam Vitals and nursing note reviewed. HENT: Head: Normocephalic and atraumatic. Right Ear: External ear normal. Left Ear: External ear normal. Eyes: Conjunctiva/sclera: Conjunctivae normal. Cardiovascular: Rate and Rhythm: Normal rate and regular rhythm. Heart sounds: Murmur heard. No friction rub. No gallop. Pulmonary: Effort: Pulmonary effort is normal. No respiratory distress. Breath sounds: Normal breath sounds. No wheezing or rales. Abdominal: Palpations: Abdomen is soft. Tenderness: There is no abdominal tenderness. Neurological: Mental Status: She is alert. Assessment & Plan: Radha was seen today for pharyngitis. Diagnoses and all orders for this visit: Type 2 diabetes mellitus with stage 3b chronic kidney disease, without long-term current use of insulin ([facility]) - HEMOGLOBIN, GLYCOSYLATED - COLLECT.CAPILLARY (FNGR,HEEL,EAR) - VITAMIN D, 25 OH; Future - ALBUMIN URINE RANDOM W/CREATININE; Future - CBC W/DIFF AUTOMATED; Future - COMPREHENSIVE METABOLIC PANEL; Future - LIPID PANEL; Future - PROTIME/INR, VENOUS; Future - PTH - INTACT; Future - THYROID STIM HORMONE TSH; Future - THYROXINE, FREE (FT4); Future Other chronic pain - HYDROcodone-acetaminophen (NORCO) 5-325 MG tablet; Take 1-2 tablets by mouth every 6 (six) hours as needed for Pain. Indications: Chronic Pain Heart failure with mid-range ejection fraction (HFmEF) ([facility]) - VITAMIN D, 25 OH; Future - ALBUMIN URINE RANDOM W/CREATININE; Future - CBC W/DIFF AUTOMATED; Future - COMPREHENSIVE METABOLIC PANEL; Future - LIPID PANEL; Future - PROTIME/INR, VENOUS; Future - PTH - INTACT; Future - THYROID STIM HORMONE TSH; Future - THYROXINE, FREE (FT4); Future Chronic anticoagulation - PROTIME/INR, VENOUS; Future - VENIPUNC ARM DRAW - PROTIME/INR, VENOUS - VITAMIN D, 25 OH; Future - ALBUMIN URINE RANDOM W/CREATININE; Future - CBC W/DIFF AUTOMATED; Future - COMPREHENSIVE METABOLIC PANEL; Future - LIPID PANEL; Future - PROTIME/INR, VENOUS; Future - PTH - INTACT; Future - THYROID STIM HORMONE TSH; Future - THYROXINE, FREE (FT4); Future Cirrhosis of liver without ascites, unspecified hepatic cirrhosis type ([facility]) Polymyalgia rheumatica ([facility]) Mild vascular dementia with anxiety ([facility]) Chronic obstructive pulmonary disease, unspecified COPD type ([facility]) Major depression single episode, in partial remission ([facility]) Paroxysmal atrial fibrillation ([facility]) - VITAMIN D, 25 OH; Future - ALBUMIN URINE RANDOM W/CREATININE; Future - CBC W/DIFF AUTOMATED; Future - COMPREHENSIVE METABOLIC PANEL; Future - LIPID PANEL; Future - PROTIME/INR, VENOUS; Future - PTH - INTACT; Future - THYROID STIM HORMONE TSH; Future - THYROXINE, FREE (FT4); Future Peripheral arterial occlusive disease ([facility]) Hyperparathyroidism ([facility]) - VITAMIN D, 25 OH; Future - ALBUMIN URINE RANDOM W/CREATININE; Future - CBC W/DIFF AUTOMATED; Future - COMPREHENSIVE METABOLIC PANEL; Future - LIPID PANEL; Future - PROTIME/INR, VENOUS; Future - PTH - INTACT; Future - THYROID STIM HORMONE TSH; Future - THYROXINE, FREE (FT4); Future Hyperthyroidism - VITAMIN D, 25 OH; Future - ALBUMIN URINE RANDOM W/CREATININE; Future - CBC W/DIFF AUTOMATED; Future - COMPREHENSIVE METABOLIC PANEL; Future - LIPID PANEL; Future - PROTIME/INR, VENOUS; Future - PTH - INTACT; Future - THYROID STIM HORMONE TSH; Future - THYROXINE, FREE (FT4); Future Discussion/Summary: Will continue current meds and lifestyle changes for T2DM, CKD 3b, HFmEF, cirrhosis, polymyalgia rheumatica, vascular dementia, COPD, MDD, A Fib, PAD, hyperthyroidism, and hyperparathyroidism; all stable today. Obtain diagnostics as recommended. Repeat neuroimaging for aneurysm based upon neurosurgery recommendations. Will obtain venous PT/INR and repeat in 1 week; will consider change based uponthis result. No emergent symptoms today. Continue conservative treatment of wrist; repeat XR in 10 days if needed. Will have pt f/u in 2 months or sooner if needed. I personally spent a total of 46 minutes on the day of the encounter. This includes [id number] and [id number] time I provided on the day of the encounter & excludes time spent performing separately reportable services. 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 Author Health - patient able to perform ADLs independently General On track(2023 9:49 AM CDT) Dianne Corona, RN Note: 12/17/23: Patient stated she is independent with ASL's. Establish Plan for Symptom Monitoring-CHF General On track(2023 11:36 AM MACHINE LEATHER TRIMMER) Dianne Corona, RN Note: Patient will [...] Monitoring-COPD General On track(2023 11:36 AM MACHINE LEATHER TRIMMER) Dianne Corona RN Note: Patient will [...] Monitoring-DM General On track(2023 4:33 PM MACHINE LEATHER TRIMMER) Dianne Corona RN Note: Patient will [...] Monitoring-HTN General On track(2023 4:33 PM MACHINE LEATHER TRIMMER) Dianne Corona RN Note: Patient will monitor [...] Associated Diagnosis Comments PROTHROMBIN TIME, VENOUS Routine 08/06/2023 12:14 PM CDT Chronic anticoagulation COLLECTION VENOUS BLOOD VENIPUNCTURE Routine 08/06/2023 12:12 PM CDT Chronic anticoagulation COLLECT.CAPILLARY (FNGR,HEEL,EAR) Routine 08/06/2023 11:30 AM CDT Type 2 diabetes mellitus with stage 3b chronic kidney disease, without long-term current use of insulin ([facility]) PROTHROMBIN TIME, FINGERSTICK Routine 08/06/2023 Chronic anticoagulation HEMOGLOBIN, GLYCOSYLATED Routine 08/06/2023 Type 2 diabetes mellitus with stage 3b chronic kidney disease, without long-term current use of insulin ([facility]) documented in this encounter Results * (ABNORMAL) THYROXINE, FREE (FT4) (08/14/2023 12:00 PM CDT) FREE T4 0.68(L) 0.76 - 1.46 NG/DL 08/14/2023 7:44 PM CDT [facility] 08/14/2023 12:0 0 PM CDT Snajeev Webster DO LABORATORY Final Re sult Performing Organization Address [facility]/ZIP Co de Phone Number [facility] [address] [place] [address], [place] [phone] * THYROID STIM HORMONE TSH (08/14/2023 12:00 PM CDT) Pathologist [facility] TSH 3.146 0.358 - 3.740 uIU/ML 08/14/2023 7:44 PM CDT [facility] 08/14/2023 12:0 0 PM CDT Sanjeev Webster LABORATORY Final Re sult Performing Organization Address City/[facility]/ZIP Co de Phone Number [facility] [address] [place] [address], [place] [phone] * (ABNORMAL) PTH - INTACT (08/14/2023 12:00 PM CDT) PTH 103.8(H) 18.4 - 80.1 PG/ML 08/14/2023 10:02 PM CDT [facility] Comment: ASSAY PERFORMED BY CHEMILUMINESCENCE METHODOLOGY USING [employer]EMENS CENTAUR XPT REAGENT. PATIENT RESULTS DETERMINED BY ASSAYS USING DIFFERENT MANUFACTURERS FOR METHODS MAY NOT BE COMPARABLE. 08/14/2023 12:0 0 PM CDT Sanjeev Webster DO LABORATORY Final Re sult Performing Organization Address [facility] de Phone Number [facility] [address] [place] [address], [id number] * (ABNORMAL) PROTIME/INR, VENOUS (08/14/2023 12:00 PM CDT) Pathologist [facility] PROTIME 37.0(H) 9.3 - 11.6 SEC 08/14/2023 2:42 PM CDT [facility] INR 3.9(H) 0.9 - 1.1 08/14/2023 2:42 PM CDT [facility] Comment: TREATMENT OR PROPHYLAXIS AGAINST: ?? THERAPEUTIC RANGE (INR): ?VENOUS THROMBOSIS ? 2.0-3.0 ?PULMONARY EMBOLUS ? 2.0-3.0 ?? MECHANICAL PROSTHETIC VALVES ? 2.5-3.5 08/14/2023 12:0 0 PM CDT Sanjeev Webster DO LABORATORY Final Re sult Performing Organization Address [facility] de Phone Number [facility] [address] [place] [address], * (ABNORMAL) LIPID PANEL (08/14/2023 12:00 PM CDT) CHOLESTEROL 201(H) <200 MG/DL 08/14/2023 7:44 PM CDT [facility] TRIGLYCERIDES 97 <150 MG/DL 08/14/2023 7:44 PM CDT [facility] HDL 66 >40 MG/DL 08/14/2023 7:44 PM CDT [facility] LDL-C 116(H) <100 MG/DL 08/14/2023 7:44 PM CDT [facility] VLDL CALCULATION 19 5 - 28 MG/DL 08/14/2023 7:44 PM CDT [facility] CHOL/HDL RATIO 3.0 0.0 - 4.0 08/14/2023 7:44 PM CDT [facility] LDL/HDL 1.8 0.41 - 2.13 08/14/2023 7:44 PM CDT [facility] NON HDL CHOLESTEROL 135 <140 MG/DL 08/14/2023 7:44 PM CDT [facility] 08/14/2023 12:0 0 PM CDT Sanjeev Webster DO LABORATORY Final Re sult [facility] [address] [place] [address], * (ABNORMAL) COMPREHENSIVE METABOLIC PANEL (08/14/2023 12:00 PM CDT) SODIUM S/P/B 144 136 - 145 MMOL/L 08/14/2023 7:44 PM CDT [facility] POTASSIUM S/P/B 4.4 3.5 - 5.1 MMOL/L 08/14/2023 7:44 PM CDT [facility] CHLORIDE S/P/B 108(H) 98 - 107 MMOL/L 08/14/2023 7:44 PM CDT [facility] CO2 32.1(H) 21 - 32 MMOL/L 08/14/2023 7:44 PM T [facility] GLUCOSE 93 70 - 99 MG/DL 08/14/2023 7:44 PM CDT [facility] BUN 21(H) 7 - 18 MG/DL 08/14/2023 7:44 PM T [facility] CREATININE S/P/B 1.26(H) 0.55 - 1.02 MG/DL 08/14/2023 7:44 PM T [facility] CALCIUM S/P/B 9.4 8.4 - 10.5 MG/DL 08/14/2023 7:44 PM CDT [facility] BILIRUBIN TOTAL S/P/B 0.3 0.2 - 1.0 MG/DL 08/14/2023 7:44 PM T [facility] ALKALINE PHOSPHATASE S/P/B 72 55 - 142 U/L 08/14/2023 7:44 PM CDT [facility] AST 15 15 - 37 U/L 08/14/2023 7:44 PM CDT [facility] ALT 14 14 - 59 U/L 08/14/2023 7:44 PM CDT [facility] TOTAL PROTEIN S/P/B 6.4 6.4 - 8.2 G/DL 08/14/2023 7:44 PM T [facility] ALBUMIN S/P/B 3.2(L) 3.4 - 5.0 G/DL 08/14/2023 7:44 PM T [facility] ANION GAP 3.9(L) 5 - 15 MMOL/L 08/14/2023 7:44 PM CDT [facility] Comment:REFERENCE RANGE NOT ESTABLISHED OSMOLALITY (CALC) 301 MOSM/KG 024 7:44 PM CDT [facility] Comment:REFERENCE RANGE NOT ESTABLISHED GFR ESTIMATE 43(L) >90 ML/MIN/1. 73 M2 08/14/2023 7:44 PM CDT [facility] GFR NOTES GFR REFERENCE S: 08/14/2023 7:44 PM CDT [facility] Comment: THE ESTIMATED GFR IS CALCULATED USING [...] Sanjeev Webster DO LABORATORY Final Re sult [facility] [address] [place] [address], * (ABNORMAL) CBC W/DIFF AUTOMATED (08/14/2023 12:00 PM CDT) WBC 5.03 4.00 - 10.80 x10'3/uL 08/14/2023 7:22 PM CDT [facility] RBC 3.13(L) 4.10 - 5.40 x10'6/uL 08/14/2023 7:22 PM CDT [facility] HGB 8.7(L) 12.0 - 16.0 G/DL 08/14/2023 7:22 PM CDT [facility] HCT 29.5(L) 36.0 - 47.0 % 08/14/2023 7:22 PM CDT [facility] MCV 94.2 78.0 - 100.0 FL 08/14/2023 7:22 PM CDT [facility] MCH 27.8 27.0 - 31.0 PG 08/14/2023 7:22 PM CDT [facility] MCHC 29.5(L) 33.0 - 36.0 G/DL 08/14/2023 7:22 PM CDT [facility] [facility] RDW 15.0(H) 11.5 - 14.5 % 08/14/2023 7:22 PM CDT [facility] PLT 316 150 - 350 x10'3/uL 08/14/2023 7:22 PM CDT [facility] MPV 12.9(H) 7.4 - 10.4 FL 08/14/2023 7:22 PM CDT [facility] DIFFERENTIAL TYPE AUTOMATED DIFFERENTIAL 08/14/2023 7:22 PM CDT [facility] NEUTROPHILS % 58.3 % 08/14/2023 7:22 PM CDT [facility] LYMPHOCYTES % 25.6 % 08/14/2023 7:22 PM CDT [facility] MONOCYTES % 11.9 % 08/14/2023 7:22 PM CDT [facility] EOSINOPHILS % 3.6 % 08/14/2023 7:22 PM CDT [facility] BASOPHILS % 0.6 % 08/14/2023 7:22 PM CDT [facility] IMMATURE GRANS % 0.0 % 08/14/2023 7:22 PM CDT [facility] ABS. NEUTROPHILS 2.93 1.60 - 8.30 x10'3/uL 08/14/2023 7:22 PM CDT [facility] ABS. LYMPHOCYTES 1.29 0.80 - 4.70 x10'3/uL 08/14/2023 7:22 PM CDT [facility] ABS. MONOCYTES 0.60 0.00 - 1.50 x10'3/uL 08/14/2023 7:22 PM CDT [facility] ABS. EOSINOPHILS 0.18 0.00 - 0.40 x10'3/uL 08/14/2023 7:22 PM CDT [facility] ABS. BASOPHILS 0.03 0.00 - 0.20 x10'3/uL 08/14/2023 7:22 PM CDT [facility] ABS. IMMATURE GRANULOCYTES 0.00 0.00 - 0.03 x10'3/uL 08/14/2023 7:22 PM CDT [facility] 08/14/2023 12:0 0 PM CDT Sanjeev Webster DO LABORATORY Final Re sult [facility] [address] [place] [address], * ALBUMIN URINE RANDOM W/CREATININE (08/14/2023 12:00 PM CDT) MICROALBUMIN (U) 3.9 <20 MG/L 08/14/19 24 7:30 PM CDT [facility] CREATININE RANDOM (U) 24.5 MG/DL 08/14/2023 7:30 PM CDT [facility] ALBUMIN/CREAT RATIO 15.9 <30 MG/G 08/14/2023 7:30 PM CDT [facility] URINE SPECIMEN / Unknown 08/14/2023 12:00 PM CDT Sanjeev Webster DO URINE ORDERABLES Final R esult Performing Organization Address [facility] de Phone Number [facility] [address] [place] [address], * VITAMIN D, 25 [place] (08/14/2023 12:00 PM CDT) [facility] VITAMIN D 25 HYDROXY TOTAL S/P/B 55.8 30 - 100 NG/ML 08/14/2023 7:44 PM CDT [facility] Comment: ? DEFICIENT ??<20 ?INSUFFICIENT 20-30 ?SUFFICIENT 30-100 08/14/2023 12:0 0 PM CDT Sanjeev Webster DO LABORATORY Final Re sult Performing Organization Address [facility] de Phone Number [place] [phone] [place] [address], * (ABNORMAL) PROTIME/INR, VENOUS (08/06/2023 12:14 PM CDT) [facility] PROTIME 39.7(H) 9.3 - 11.6 SEC 08/06/2023 3:07 PM CDT [facility] INR 4.2(H) 0.9 - 1.1 08/06/2023 3:07 PM CDT [facility] Comment: TREATMENT OR PROPHYLAXIS AGAINST: ?? THERAPEUTIC RANGE (INR): ?VENOUS THROMBOSIS ? 2.0-3.0 ?PULMONARY EMBOLUS ? 2.0-3.0 ?? MECHANICAL PROSTHETIC VALVES ? 2.5-3.5 08/06/2023 12:1 4 PM CDT us Sanjeev Webster DO LABORATORY Final Re sult Performing Organization Address City/[facility] Co de Phone Number [facility] [address] [facility] [place] [address], [place] [phone] * PROTIME/INR, FINGERSTICK (08/06/2023) PROTIME WHOLE BLOOD 4.8 [facility] 08/06/2023 Sanjeev Webster DO LABORATORY Final Re sult Performing Organization Address [facility] de Phone Number [place] [phone], [place] * HEMOGLOBIN, GLYCOSYLATED (08/06/2023) HGB A1C 6.5 % [facility] 08/06/2023 Sanjeev Webster DO LABORATORY Final Re sult Performing Organization Address [facility] Co de Phone Number [place] [phone], [place] documented in this encounter Visit Diagnoses Diagnosis Type 2 diabetes mellitus with stage 3b chronic kidney disease, without long-term current use of insulin ([facility])- Primary Other chronic pain Heart failure with mid-range ejection fraction (HFmEF) ([facility]) Chronic anticoagulation Encounter for long-term (current) use of anticoagulants Cirrhosis of liver without ascites, unspecified hepatic cirrhosis type ([facility]) Polymyalgia rheumatica ([facility]) Polymyalgia rheumatica Mild vascular dementia with anxiety ([facility]) Chronic obstructive pulmonary disease, unspecified COPD type ([facility]) Major depression single episode, in partial remission ([facility]) Major depressive disorder, single episode, in partial or unspecified remission Paroxysmal atrial fibrillation (CMS/HCC HHS/HCC) Atrial fibrillation 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 Hyperparathyroidism ([facility]/HCC HHS/HCC) Hyperparathyroidism, unspecified Hyperthyroidism Thyrotoxicosis without mention of goiter or other cause, without mention of thyrotoxic crisis or storm Sprain of left wrist, subsequent encounter documented in this encounter Additional Health Concerns Assessment Noted Time PHQ-9 Depression Total Score: 13 023 3:56 PM CDT documented as of this encounter Care Teams Overlock Sewing Machine Operator Relationship Specialty Start Date End Date Sanjeev Webster DO [address] [place] [address] PCP - General FAMILY PRACTICE 09/25/20 Dianne Johnson, RN [address] [place] [address] Auditor In Charge (Ambulatory) REGISTERED NURSE 08/14/20 documented as of this encounter
--- OUTSIDE RECORDS SUMMARY | 2024-03-15 00:52 | XMS_ITS | Encounter Summary ---
Author Organization [facility] Address [facility] [place] [address] [place] [address] Care Team Providers Care Buttonhole Machine Operator Name Role Phone Dianne Johnson RN Unavailable [phone] Sanjeev Webster DO Primary Care Provider + Encounter Details Date Type Department Care Team (Late st Contact Info) Description 08/26/2023 Scan [facility] [phone] Scanned, Doc Pccl Social History Tobacco Use [...] often do you attend chur ch or alevism services? More than 4 times per year 08/26/2022 Do you belong to any clubs o r organizations such as mosque groups, unions, fraternal or athletic groups, or [...] Recorded Patient Health Questionnaire-2 Score 1 08/06/2023 [facility] Answer Date [...] st Contact Info) Description 04/14/2024 2:00 PM DISPOSITION CLERK Office Visit [facility] Medical [facility] Multispecialty Care - [facility] [address] [facility], [address] [place] [address] Julio Pulido MD [address] [place] [address] documented as of this encounter Goals Goal Patient Goal Type Associated Problems Recent Progress Patient-Stated? Author Health - patient able to perform ADLs independently General On track(2023 9:49 AM CDT) Dianne Corona RN Note: 12/17/23: Patient stated she is independent with ASL's. Establish Plan for Symptom Monitoring-CHF General On track(2023 11:36 AM DISPOSITION CLERK) Dianne Corona RN Note: Patient will [...] Symptom Monitoring-COPD General On track(2023 11:36 AM DISPOSITION CLERK) Dianne Corona RN Note: Patient will [...] Symptom Monitoring-DM General On track(2023 4:33 PM DISPOSITION CLERK) Dianne Corona RN Note: Patient will [...] Symptom Monitoring-HTN General On track(2023 4:33 PM DISPOSITION CLERK) Dianne Corona RN Note: Patient will [...] documented as of this encounter Care Teams Buttonhole Machine Operator Relationship Specialty Start Date End Date Sanjeev Webster DO [address] [place] [address] PCP - General FAMILY PRACTICE 09/25/20 Dianne Johnson RN [address] [place] [address] Tea Tree Farm Worker (Ambulatory) REGISTERED NURSE 08/14/20 documented as of this encounter
--- OUTSIDE RECORDS SUMMARY | 2024-03-15 00:52 | XMS_ITS | Encounter Summary ---
Author Organization [facility] Address [facility] [place] [place] [address] [place] [address] Care Team Providers Care Administrative Services Coordinator Name Role Phone Dianne Johnson RN Unavailable [phone] Sanjeev Webster DO Primary Care Provider + Encounter Details Date Type Department Care Team (Latest Contact Info) Description 07/21/2023 Travel Social History Tobacco Use Types Packs/Day [...] Recorded Patient Health Questionnaire-2 Score 6 12/11/2022 [facility] of Occupat ional [...] st Contact Info) Description 04/14/2024 2:00 PM MANNEQUIN MOUNTER Office Visit [facility] Multispecialty Care - [facility] [address] [facility], [address] [place] [address] Julio Pulido MD [address] [place] [address] documented as of this encounter Goals Goal Patient Goal Type Associated Problems Recent Progress Patient-Stated? Author Health - patient able to perform ADLs independently General On track(2023 9:49 AM CDT) Dianne Corona RN Note: 12/17/23: Patient stated she is independent with ASL's. Establish Plan for Symptom Monitoring-CHF General On track(2023 11:36 AM MANNEQUIN MOUNTER) Dianne Corona RN Note: Patient will recognize [...] Symptom Monitoring-COPD General On track(2023 11:36 AM MANNEQUIN MOUNTER) Dianne Corona RN Note: Patient will recognize [...] Symptom Monitoring-DM General On track(2023 4:33 PM MANNEQUIN MOUNTER) Dianne Corona RN Note: Patient will manage [...] Symptom Monitoring-HTN General On track(2023 4:33 PM MANNEQUIN MOUNTER) Dianne Corona, RN Note: Patient will monitor [...] documented as of this encounter Care Teams Administrative Services Coordinator Relationship Specialty Start Date End Date Sanjeev Webster DO [address] [place] [address] PCP - General FAMILY PRACTICE 09/25/20 Dianne Johnson, RN [address] [place] [address] Chief Procurement Officer (Ambulatory) REGISTERED NURSE 08/14/20 documented as of this encounter
--- OUTSIDE RECORDS SUMMARY | 2024-03-15 00:52 | XMS_ITS | Encounter Summary ---
Author Organization [facility] Address [facility]6 [facility] [place] [address] [place] [address] Care Team Providers Care Digital Media Associate Name Role Phone Dianne Johnson RN Unavailable [phone] Sanjeev Webster DO Primary Care Provider + Encounter Details Date Type Department Care Team (Late st Contact Info) Description 08/24/2023 Scan [facility] [address] Scanned, Doc Pccl Social History Tobacco Use [...] often do you attend chur ch or scientology services? More than 4 times per year [...] Recorded Patient Health Questionnaire-2 Score 1 08/06/2023 [facility] Questionnaire Answer Date Recorded [...] st Contact Info) Description 04/14/2024 2:00 PM STABLE MANAGER Office Visit [facility] Medical Group Multispecialty Care - [facility] 3 [facility], [address] [place] [address] Julio Pulido MD 3 [place] [address] documented as of this encounter Goals Goal Patient Goal Type Associated Problems Recent Progress Patient-Stated? Author Health - patient able to perform ADLs independently General On track(2023 9:49 AM CDT) Dianne Corona RN Note: 12/17/23: Patient stated she is independent with ASL's. Establish Plan for Symptom Monitoring-CHF General On track(2023 11:36 AM STABLE MANAGER) Dianne Corona RN Note: Patient will [...] Symptom Monitoring-COPD General On track(2023 11:36 AM STABLE MANAGER) Dianne Corona RN Note: Patient will [...] Symptom Monitoring-DM General On track(2023 4:33 PM STABLE MANAGER) Dianne Corona RN Note: Patient will [...] Symptom Monitoring-HTN General On track(2023 4:33 PM STABLE MANAGER) Dianne Corona, DALE Note: Patient will monitor B/P several times per week , record readings and report to physician or CC if B/P consistently >130/80 Take your medications as prescribed. Follow up with your provider as scheduled. Take your blood pressure at least several times a week if able. documented as of this encounter Procedures Procedure Name Priority Date/Time Associated Diagnosis Comments ECG GENERIC (SCAN ORDER) Routine 08/24/2023 documented in this encounter Results * ECG (08/24/2023) us Doc Pccl Scanned SCANNING Final Result [facility] documented in this encounter Visit Diagnoses Not on filedocumented in this encounter Additional Health Concerns Assessment Noted Time PHQ-9 Depression Total Score: 13 023 3:56 PM CDT documented as of this encounter Care Teams Digital Media Associate Relationship Specialty Start Date End Date Sanjeev Webster DO [address] [place] [address] PCP - General FAMILY PRACTICE 09/25/20 Dianne Johnson, RN [address] [place] [address] Site Leader (Ambulatory) REGISTERED NURSE 08/14/20 documented as of this encounter
--- OUTSIDE RECORDS SUMMARY | 2024-03-15 00:52 | XMS_ITS | Encounter Summary ---
Author Organization [facility] Address [facility] [facility]. [place], [place] [address] [place] [address] Care Team Providers Care Hotel Room Attendant Name Role Phone Dianne Johnson RN Unavailable [phone] Sanjeev Webster DO Primary Care Provider + Reason for Visit * Reason Onset Date Comments Results 07/28/2023 Encounter Details Date Type Department Care Team (Late st Contact Info) Description 07/28/2023 Telephone [facility] Medical Group Family & Internal Medicine [place] [address] [place] [address] Sanjeev Webster DO [facility] [place] [address] Results Social History Tobacco Use [...] How often do you attend chur or adventist services? More than 4 times per year [...] Recorded Patient Health Questionnaire-2 Score 6 12/11/2022 [facility] of Occupat ional [...] Progress Notes * Yenifer Ingram MA - 07/28/2023 11:49 AM CDT Spoke with patient and daughter Izzy. Informed them both of results and follow up. Both v/u and didnot have questions. ----- Message from Sanjeev Webster DO sent at 07/22/2023 7:59 AM CDT ----- Therapeutic; will recheck at next OV on 08/06/23. documented in this encounter Plan of Treatment Upcoming Encounters Date Type Department Care Team (Late st Contact Info) Description 04/14/2024 2:00 PM DIRECTOR OF ACQUISITION MARKETING Office Visit [facility] Medical Group Multispecialty Care - [address], [address] [place] [address] Julio Pulido MD [address] [place] [address] documented as of this encounter Goals Goal Patient Goal Type Associated Problems Recent Progress Patient-Stated? Author Health - patient able to perform ADLs independently General On track(2023 9:49 AM CDT) Dianne Corona RN Note: 12/17/23: Patient stated she is independent with ASL's. Establish Plan for Symptom Monitoring-CHF General On track(2023 11:36 AM DIRECTOR OF ACQUISITION MARKETING) Dianne Corona RN Note: Patient will recognize [...] General On track(2023 11:36 AM DIRECTOR OF ACQUISITION MARKETING) Dianne Corona RN Note: Patient will recognize [...] General On track(2023 4:33 PM DIRECTOR OF ACQUISITION MARKETING) Dianne Corona RN Note: Patient will manage [...] General On track(2023 4:33 PM DIRECTOR OF ACQUISITION MARKETING) No Dianne Johnson, RN Note: Patient will [...] documented as of this encounter Care Teams Hotel Room Attendant Relationship Specialty Start Date End Date Sanjeev Webster DO [address] [place] [address] PCP - General FAMILY PRACTICE 09/25/20 Dianne Johnson, RN [address] [place] [address] Chief Digital Officer (Ambulatory) REGISTERED NURSE 08/14/20 documented as of this encounter
--- OUTSIDE RECORDS SUMMARY | 2024-03-15 00:52 | XMS_ITS | Encounter Summary ---
Author Organization [facility] Address [facility]6 [place] [address] [place] [address] Care Team Providers Care Advisor To Command In Combat Name Role Phone Dianne Johnson RN Unavailable [phone] Sanjeev Webster DO Primary Care Provider + Encounter Details Date Type Department Care Team (Latest Contact Info) Description 08/06/2023 Travel Social History Tobacco Use Types Packs/Day [...] Health Questionnaire-2 Score 1 08/06/2023 [facility] of Occupat ional Health - [...] st Contact Info) Description 04/14/2024 2:00 PM COLOR BLENDER Office Visit [facility] Medical Group Multispecialty Care - [facility] [address] [facility], [address] [place] [address] Julio Pulido MD [address] [place] [address] documented as of this encounter Goals Goal Patient Goal Type Associated Problems Recent Progress Patient-Stated? Author Health - patient able to perform ADLs independently General On track(2023 9:49 AM CDT) Dianne Corona RN Note: 12/17/23: Patient stated she is independent with ASL's. Establish Plan for Symptom Monitoring-CHF General On track(2023 11:36 AM COLOR BLENDER) Dianne Corona RN Note: Patient will recognize [...] Symptom Monitoring-COPD General On track(2023 11:36 AM COLOR BLENDER) Dianne Corona RN Note: Patient will recognize [...] Symptom Monitoring-DM General On track(2023 4:33 PM COLOR BLENDER) Dianne Corona RN Note: Patient will manage [...] Symptom Monitoring-HTN General On track(2023 4:33 PM COLOR BLENDER) Dianne Corona, RN Note: Patient will monitor [...] documented as of this encounter Care Teams Advisor To Command In Combat Relationship Specialty Start Date End Date Sanjeev Webster DO [address] [place] [address] PCP - General FAMILY PRACTICE 09/25/20 Dianne Johnson, RN [address] [place] [address] Criminalist Technician (Ambulatory) REGISTERED NURSE 08/14/20 documented as of this encounter
--- OUTSIDE RECORDS SUMMARY | 2024-03-15 00:52 | XMS_ITS | Encounter Summary ---
Author Organization [facility] Address [facility]6 [facility] [place], [place] [address] [place] [address] Care Team Providers Care Radio Communication Coordinator Name Role Phone Dianne Johnson RN Unavailable [phone] Sanjeev Webster DO Primary Care Provider + Reason for Visit * Reason Onset Date Comments Question 07/24/2023 Encounter Details Date Type Department Care Team (Late st Contact Info) Description 07/24/2023 Telephone [facility] Medical Group Family & Internal Medicine [facility] [address] [place] [address] Sanjeev Webster DO [address] [place] [address] Question Social History Tobacco Use [...] any clubs o r organizations such as latter-day groups, unions, fraternal or athletic groups, or [...] Recorded Patient Health Questionnaire-2 Score 6 12/11/2022 [facility] of Occupat ional Health [...] Progress Notes * Sanjeev Webster DO - 07/27/2023 7:30 PM CDT If pt wishes to wait until Ozempic arrives and then start that, that's fine. She can stop the Trulicity for now. * Yenifer Batista - 07/27/2023 12:42 PM CDT Patient Assistance called and let us know that Radha has been approved for the program. Her Ozempic will be mailed to our office. She will call the distributor to find out when the first shipment will be and call us back. * Yenifer Ingram MA - 07/24/2023 10:22 AM CDT Please advise on PAP status * Yenifer Batista - 07/24/2023 9:28 AM CDT Patient is taking diet shots (Trulicity) and cannot get them. Patient says Dr Florence is trying to get her some free shots and she wants to know if she has been approved. documented in this encounter Plan of Treatment Upcoming Encounters Date Type Department Care Team (Late st Contact Info) Description 04/14/2024 2:00 PM BAKER HEAD Office Visit [facility] Medical Group Multispecialty Care - [facility] 3 [facility], [address] [place] [phone] Julio Pulido MD [address] [place] [address] documented as of this encounter Goals Goal Patient Goal Type Associated Problems Recent Progress Patient-Stated? Author Health - patient able to perform ADLs independently General On track(2023 9:49 AM CDT) Dianne Corona, DALE Note: 12/17/23: Patient stated she is independent with ASL's. Establish Plan for Symptom Monitoring-CHF General On track(2023 11:36 AM BAKER HEAD) Dianne Corona, RN Note: Patient will recognize [...] Symptom Monitoring-COPD General On track(2023 11:36 AM BAKER HEAD) Dianne Corona, RN Note: Patient will recognize [...] Symptom Monitoring-DM General On track(2023 4:33 PM BAKER HEAD) Dianne Corona RN Note: Patient will manage [...] Symptom Monitoring-HTN General On track(2023 4:33 PM BAKER HEAD) Dianne Corona RN Note: Patient will monitor [...] documented as of this encounter Care Teams Radio Communication Coordinator Relationship Specialty Start Date End Date Sanjeev Webster DO [address] [place] [address] PCP - General FAMILY PRACTICE 09/25/20 Dianne Johnson RN [address] [place] [address] Sterile Processing Technologist (Ambulatory) REGISTERED NURSE 08/14/20 documented as of this encounter
--- OUTSIDE RECORDS SUMMARY | 2024-03-15 00:52 | XMS_ITS | Encounter Summary ---
Author Organization [facility] Address [facility] [place] [address] [place] [address] Care Team Providers Care Radio Intelligence Operator Name Role Phone Dianne Johnson RN Unavailable [phone] Sanjeev Webster DO Primary Care Provider + Encounter Details Date Type Department Care Team (Latest Contact Info) Description 08/11/2023 Travel Social History Tobacco Use Types Packs/Day [...] st Contact Info) Description 04/14/2024 2:00 PM COLLEGE ADVISOR Office Visit [facility] Medical Group Multispecialty Care - [facility] 3 [facility], [address] [place] [address] Julio Pulido MD [address] [place] [address] documented as of this encounter Goals Goal Patient Goal Type Associated Problems Recent Progress Patient-Stated? Author Health - patient able to perform ADLs independently General On track(2023 9:49 AM CDT) Dianne Corona RN Note: 12/17/23: Patient stated she is independent with ASL's. Establish Plan for Symptom Monitoring-CHF General On track(2023 11:36 AM COLLEGE ADVISOR) Dianne Corona RN Note: Patient will recognize [...] Symptom Monitoring-COPD General On track(2023 11:36 AM COLLEGE ADVISOR) Dianne Corona RN Note: Patient will recognize [...] Symptom Monitoring-DM General On track(2023 4:33 PM COLLEGE ADVISOR) Dianne Corona RN Note: Patient will manage [...] Symptom Monitoring-HTN General On track(2023 4:33 PM COLLEGE ADVISOR) Dianne Corona, RN Note: Patient will monitor [...] as of this encounter Care Teams Radio Intelligence Operator Relationship Specialty Start Date End Date Sanjeev Webster DO [address] [place] [address] PCP - General FAMILY PRACTICE 09/25/20 Dianne Johnson, RN [address] [place] [address] Statistical Financial Analyst (Ambulatory) REGISTERED NURSE 08/14/20 documented as of this encounter
--- OUTSIDE RECORDS SUMMARY | 2024-03-15 00:52 | XMS_ITS | Encounter Summary ---
Author Organization [facility] Address Formerly [facility], [facility]6 [facility] [place] [address] [place] [address] Care Team Providers Care Furnace Roaster Name Role Phone Dianne Johnson RN Unavailable [phone] Sanjeev Webster DO Primary Care Provider + Encounter Details Date Type Department Care Team (Late st Contact Info) Description 08/22/2023 Scan [place] [facility] [id number] Scanned, Doc Pccl Social History Tobacco Use [...] Recorded Patient Health Questionnaire-2 Score 1 08/06/2023 [facility] [...] st Contact Info) Description 04/14/2024 2:00 PM ENGINE MAINTENANCE MECHANIC Office Visit [facility] Medical Group Multispecialty Care - [facility] 3 [facility], [address] [place] [address] Julio Pulido MD 3 [place] [address] documented as of this encounter Goals Goal Patient Goal Type Associated Problems Recent Progress Patient-Stated? Author Health - patient able to perform ADLs independently General On track(2023 9:49 AM CDT) Dianne Corona RN Note: 12/17/23: Patient stated she is independent with ASL's. Establish Plan for Symptom Monitoring-CHF General On track(2023 11:36 AM ENGINE MAINTENANCE MECHANIC) Dianne Corona RN Note: Patient will recognize [...] Symptom Monitoring-COPD General On track(2023 11:36 AM ENGINE MAINTENANCE MECHANIC) Dianne Corona RN Note: Patient will recognize [...] Symptom Monitoring-DM General On track(2023 4:33 PM ENGINE MAINTENANCE MECHANIC) Dianne Corona RN Note: Patient will manage [...] Symptom Monitoring-HTN General On track(2023 4:33 PM ENGINE MAINTENANCE MECHANIC) Dianne Corona, DALE Note: Patient will monitor [...] Diagnosis Comments ECG GENERIC (SCAN ORDER) Routine 08/22/2023 documented in this encounter Results * ECG (08/22/2023) us Doc Pccl Scanned SCANNING Final Result [facility] ON[facility] documented in this encounter Visit Diagnoses Not on filedocumented in this encounter Additional Health Concerns Assessment Noted Time PHQ-9 Depression Total Score: 13 023 3:56 PM CDT documented as of this encounter Care Teams Furnace Roaster Relationship Specialty Start Date End Date Sanjeev Webster DO [address] [place] [address] PCP - General FAMILY PRACTICE 09/25/20 Dianne Johnson, RN [address] [place] [address] Credit Interviewer (Ambulatory) REGISTERED NURSE 08/14/20 documented as of this encounter
--- OUTSIDE RECORDS SUMMARY | 2024-03-15 00:52 | XMS_ITS | Encounter Summary ---
Author Organization [facility] Address [facility]6 [facility] [place] [address] [place] [address] Care Team Providers Care Marketing Sales Supervisor Name Role Phone Dianne Johnson RN Unavailable [phone] Sanjeev Webster DO Primary Care Provider + Encounter Details Date Type Department Care Team (Late st Contact Info) Description 08/22/2023 Scan [place] [facility] [id number] Scanned, Doc Pccl Social History Tobacco Use [...] often do you attend chur ch or pentecostalism services? More than 4 times per year 08/26/2022 Do you belong to any clubs o r organizations such as nondenominational groups, unions, fraternal or athletic groups, or [...] Recorded Patient Health Questionnaire-2 Score 1 08/06/2023 [facility] Questionnaire Answer Date [...] st Contact Info) Description 04/14/2024 2:00 PM PUBLIC WORKS INSPECTOR Office Visit [facility] Medical [facility] Multispecialty Care - [facility] 3 [facility], [address] [place] [address] Julio Pulido MD 3 [place] [address] documented as of this encounter Goals Goal Patient Goal Type Associated Problems Recent Progress Patient-Stated? Author Health - patient able to perform ADLs independently General On track(2023 9:49 AM CDT) Dianne Corona RN Note: 12/17/23: Patient stated she is independent with ASL's. Establish Plan for Symptom Monitoring-CHF General On track(2023 11:36 AM PUBLIC WORKS INSPECTOR) Dianne Corona RN Note: Patient will recognize [...] Symptom Monitoring-COPD General On track(2023 11:36 AM PUBLIC WORKS INSPECTOR) Dianne Corona RN Note: Patient will recognize [...] Symptom Monitoring-DM General On track(2023 4:33 PM PUBLIC WORKS INSPECTOR) Dianne Corona RN Note: Patient will manage [...] Symptom Monitoring-HTN General On track(2023 4:33 PM PUBLIC WORKS INSPECTOR) Dianne Corona RN Note: Patient will monitor [...] documented as of this encounter Care Teams Marketing Sales Supervisor Relationship Specialty Start Date End Date Sanjeev Webster DO [address] [place] [address] PCP - General FAMILY PRACTICE 09/25/20 Dianne Johnson RN [address] [place] [address] Radio Electronics Officer (Ambulatory) REGISTERED NURSE 08/14/20 documented as of this encounter
--- OUTSIDE RECORDS SUMMARY | 2024-03-15 00:52 | XMS_ITS | Encounter Summary ---
Author Organization [facility] Address [facility] [address] [place] [address] Care Team Providers Care Front Desk Agent Name Role Phone Dianne Johnson RN Unavailable [phone] Sanjeev Webster DO Primary Care Provider + Encounter Details Date Type Department Care Team (Late st Contact Info) Description 08/22/2023 Scan [place] [facility] [phone] Scanned, Doc Pccl Social History Tobacco Use [...] often do you attend chur ch or mu-ism services? More than 4 times per year [...] Recorded Patient Health Questionnaire-2 Score 1 08/06/2023 [facility] Questionnaire Answer Date [...] st Contact Info) Description 04/14/2024 2:00 PM HYDRAULIC ROCK DRILL OPERATOR Office Visit [facility] Medical [facility] Multispecialty Care - [facility] 3 [facility], [address] [place] [address] Julio Pulido MD 3 [place] [address] documented as of this encounter Goals Goal Patient Goal Type Associated Problems Recent Progress Patient-Stated? Author Health - patient able to perform ADLs independently General On track(2023 9:49 AM CDT) Dianne Corona RN Note: 12/17/23: Patient stated she is independent with ASL's. Establish Plan for Symptom Monitoring-CHF General On track(2023 11:36 AM HYDRAULIC ROCK DRILL OPERATOR) Dianne Corona RN Note: Patient will [...] Symptom Monitoring-COPD General On track(2023 11:36 AM HYDRAULIC ROCK DRILL OPERATOR) Dianne Corona RN Note: Patient will [...] Symptom Monitoring-DM General On track(2023 4:33 PM HYDRAULIC ROCK DRILL OPERATOR) Dianne Corona RN Note: Patient will [...] Symptom Monitoring-HTN General On track(2023 4:33 PM HYDRAULIC ROCK DRILL OPERATOR) Dianne Corona RN Note: Patient will [...] documented as of this encounter Care Teams Front Desk Agent Relationship Specialty Start Date End Date Sanjeev Webster DO [address] [place] [address] PCP - General FAMILY PRACTICE 09/25/20 Dianne Johnson RN [address] [place] [address] Music Pastor (Ambulatory) REGISTERED NURSE 08/14/20 documented as of this encounter
--- OUTSIDE RECORDS SUMMARY | 2024-03-15 00:52 | XMS_ITS | Encounter Summary ---
Author Organization [facility] Address [facility]6 [facility] [place] [address] [place] [address] Care Team Providers Care Plant Attendant Or Assistant Operator Name Role Phone Dianne Johnson RN Unavailable [phone] Sanjeev Webster DO Primary Care Provider + Encounter Details Date Type Department Care Team (Latest Contact Info) Description 08/23/2023 Scan [facility] Scanned, Doc Med [...] st Contact Info) Description 04/14/2024 2:00 PM RED HAT OPEN STACK ADMINISTRATOR Office Visit [facility] Multispecialty Care - [facility] 3 [facility], [address] [place] [address] Julio Pulido MD 3 [place] [address] documented as of this encounter Goals Goal Patient Goal Type Associated Problems Recent Progress Patient-Stated? Author Health - patient able to perform ADLs independently General On track(2023 9:49 AM CDT) Dianne Corona RN Note: 12/17/23: Patient stated she is independent with ASL's. Establish Plan for Symptom Monitoring-CHF General On track(2023 11:36 AM RED HAT OPEN STACK ADMINISTRATOR) Dianne Corona RN Note: Patient will [...] Symptom Monitoring-COPD General On track(2023 11:36 AM RED HAT OPEN STACK ADMINISTRATOR) Dianne Corona RN Note: Patient will [...] Symptom Monitoring-DM General On track(2023 4:33 PM RED HAT OPEN STACK ADMINISTRATOR) Dianne Corona, RN Note: Patient will manage [...] Symptom Monitoring-HTN General On track(2023 4:33 PM RED HAT OPEN STACK ADMINISTRATOR) Dianne Corona, RN Note: Patient will monitor [...] documented as of this encounter Care Teams Plant Attendant Or Assistant Operator Relationship Specialty Start Date End Date Sanjeev Webster DO [address] [place] [address] PCP - General FAMILY PRACTICE 09/25/20 Dianne Johnson RN [address] [place] [address] Central Supply Technician (Ambulatory) REGISTERED NURSE 6/8/21 documented as of this encounter
--- OUTSIDE RECORDS SUMMARY | 2024-03-15 00:52 | XMS_ITS | Encounter Summary ---
Author Organization [facility] Address [facility]6 [facility] [place] [address] [place] [address] Care Team Providers Care Ticket Marker Name Role Phone Dianne Johnson RN Unavailable [phone] Sanjeev Webster DO Primary Care Provider + Encounter Details Date Type Department Care Team (Late st Contact Info) Description 08/25/2023 Scan [place] [facility] [phone] Scanned, Doc Pccl Social History Tobacco Use [...] any clubs o r organizations such as pentecostalism groups, unions, fraternal or athletic groups, or [...] Patient Health Questionnaire-2 Score 1 08/06/2023 [facility]ational [facility] Questionnaire Answer [...] st Contact Info) Description 04/14/2024 2:00 PM VISUAL JOURNALIST Office Visit [facility] Medical [facility] Multispecialty Care - [facility] 3 [facility], [address] [place] [address] Julio Pulido MD 3 [place] [address] documented as of this encounter Goals Goal Patient Goal Type Associated Problems Recent Progress Patient-Stated? Author Health - patient able to perform ADLs independently General On track(2023 9:49 AM CDT) Dianne Corona RN Note: 12/17/23: Patient stated she is independent with ASL's. Establish Plan for Symptom Monitoring-CHF General On track(2023 11:36 AM VISUAL JOURNALIST) Dianne Corona RN Note: Patient will recognize [...] Symptom Monitoring-COPD General On track(2023 11:36 AM VISUAL JOURNALIST) Dianne Corona RN Note: Patient will recognize [...] Symptom Monitoring-DM General On track(2023 4:33 PM VISUAL JOURNALIST) Dianne Corona RN Note: Patient will manage [...] Symptom Monitoring-HTN General On track(2023 4:33 PM VISUAL JOURNALIST) Dianne Corona, DALE Note: Patient will monitor [...] Diagnosis Comments ECG GENERIC (SCAN ORDER) Routine 08/25/2023 documented in this encounter Results * ECG (08/25/2023) us Doc Pccl Scanned SCANNING Final Result [facility] documented in this encounter Visit Diagnoses Not on filedocumented in this encounter Additional Health Concerns Assessment Noted Time PHQ-9 Depression Total Score: 13 023 3:56 PM CDT documented as of this encounter Care Teams Ticket Marker Relationship Specialty Start Date End Date Sanjeev Webster DO [address] [place] [address] PCP - General FAMILY PRACTICE 09/25/20 Dianne Johnson, RN [address] [place] [address] Qm Consultant (Ambulatory) REGISTERED NURSE 08/14/20 documented as of this encounter
--- OUTSIDE RECORDS SUMMARY | 2024-03-15 00:52 | XMS_ITS | Encounter Summary ---
Author Organization [facility] Address [facility]6 [facility] [place] [address] [place] [address] Care Team Providers Care Production Support Consultant Name Role Phone Dianne Johnson RN Unavailable [phone] Sanjeev Webster DO Primary Care Provider + Encounter Details Date Type Department Care Team (Latest Contact Info) Description 08/14/2023 Travel Social History Tobacco Use Types Packs/Day [...] Patient Health Questionnaire-2 Score 1 08/06/2023 [facility] Occupat ional Health - [...] st Contact Info) Description 04/14/2024 2:00 PM ACTIVITIES AIDE Office Visit [facility] Medical Group Multispecialty Care - [facility] 3 [facility], [address] [place] [address] Julio Pulido MD 3 [place] [address] documented as of this encounter Goals Goal Patient Goal Type Associated Problems Recent Progress Patient-Stated? Author Health - patient able to perform ADLs independently General On track(2023 9:49 AM CDT) Dianne Corona RN Note: 12/17/23: Patient stated she is independent with ASL's. Establish Plan for Symptom Monitoring-CHF General On track(2023 11:36 AM ACTIVITIES AIDE) Dianne Corona RN Note: Patient will recognize [...] Symptom Monitoring-COPD General On track(2023 11:36 AM ACTIVITIES AIDE) Dianne Corona RN Note: Patient will recognize [...] Symptom Monitoring-DM General On track(2023 4:33 PM ACTIVITIES AIDE) Dianne Corona RN Note: Patient will manage [...] Symptom Monitoring-HTN General On track(2023 4:33 PM ACTIVITIES AIDE) Dianne Corona, RN Note: Patient will monitor [...] documented as of this encounter Care Teams Production Support Consultant Relationship Specialty Start Date End Date Sanjeev Webster DO [address] [place] [address] PCP - General FAMILY PRACTICE 09/25/20 Dianne Johnson, RN [address] [place] [address] Bingo Usher (Ambulatory) REGISTERED NURSE 08/14/20 documented as of this encounter
--- OUTSIDE RECORDS SUMMARY | 2024-03-15 00:52 | XMS_ITS | Encounter Summary ---
Author Organization [facility] Address [facility]6 [facility] [place] [address] [place] [address] Care Team Providers Care Carpenter Assistant Installer Name Role Phone Dianne Johnson RN Unavailable [phone] Sanjeev Webster DO Primary Care Provider + Reason for Visit * Reason Comments Image (SCAN) Encounter Details Date Type Department Care Team (Latest Contact Info) Description 08/02/2023 Scan HEALTH INFO SRVCS Scanned, Doc Med [...] Recorded Patient Health Questionnaire-2 Score 1 08/06/2023 [facility] Occupational Stress Questionnaire Answer [...] st Contact Info) Description 04/14/2024 2:00 PM THERAPEUTIC SALES SPECIALIST Office Visit [facility] Medical [facility] Multispecialty Care - [facility] 3 [facility], [address] [place] [address] Julio Pulido MD 3 [place] [address] documented as of this encounter Goals Goal Patient Goal Type Associated Problems Recent Progress Patient-Stated? Author Health - patient able to perform ADLs independently General On track(2023 9:49 AM CDT) Dianne Corona RN Note: 12/17/23: Patient stated she is independent with ASL's. Establish Plan for Symptom Monitoring-CHF General On track(2023 11:36 AM THERAPEUTIC SALES SPECIALIST) Dianne Corona RN Note: Patient will [...] Symptom Monitoring-COPD General On track(2023 11:36 AM THERAPEUTIC SALES SPECIALIST) Dianne Corona RN Note: Patient will [...] Symptom Monitoring-DM General On track(2023 4:33 PM THERAPEUTIC SALES SPECIALIST) Dianne Corona, RN Note: Patient will manage [...] Symptom Monitoring-HTN General On track(2023 4:33 PM THERAPEUTIC SALES SPECIALIST) Dianne Corona, RN Note: Patient will [...] Priority Date/Time Associated Diagnosis Comments IMAGE GENERIC 08/02/2023 documented in this encounter Results * IMAGE GENERIC (08/02/2023) Anatomical Region Laterality Modality Other 08/02/2023 us Doc Med Group Scanned SCANNING Final Resu lt documented in this encounter Visit Diagnoses Not on filedocumented in this encounter Additional Health Concerns Assessment Noted Time PHQ-9 Depression Total Score: 13 023 3:56 PM CDT documented as of this encounter Care Teams Carpenter Assistant Installer Relationship Specialty Start Date End Date Sanjeev Webster DO [address] [place] [address] PCP - General FAMILY PRACTICE 09/25/20 Dianne Johnson, RN [address] [place] [address] Pharmacist Helper (Ambulatory) REGISTERED NURSE 08/14/20 documented as of this encounter
--- OUTSIDE RECORDS SUMMARY | 2024-03-15 00:53 | XMS_ITS | Encounter Summary ---
Author Organization [facility] Address [facility]6 [facility] [place] [address] [place] [address] Care Team Providers Care Nursing Services Manager Name Role Phone Dianne Johnson RN Unavailable [phone] Sanjeev Webster DO Primary Care Provider + Encounter Details Date Type Department Care Team (Latest Contact Info) Description 05/26/2023 Travel Social History Tobacco Use Types Packs/Day [...] How often do you attend chur or lutheran services? More than 4 times [...] Recorded Patient Health Questionnaire-2 Score 6 12/11/2022 [facility] of Occupat ional Health [...] st Contact Info) Description 04/14/2024 2:00 PM CALL CENTER SUPERVISOR Office Visit [facility] Medical Group Multispecialty Care - [facility] 3 [facility], [address] [place] [address] Julio Pulido MD 3 [place] [address] documented as of this encounter Goals Goal Patient Goal Type Associated Problems Recent Progress Patient-Stated? Author Health - patient able to perform ADLs independently General On track(2023 9:49 AM CDT) Dianne Corona RN Note: 12/17/23: Patient stated she is independent with ASL's. Establish Plan for Symptom Monitoring-CHF General On track(2023 11:36 AM CALL CENTER SUPERVISOR) Dianne Corona RN Note: Patient will [...] Symptom Monitoring-COPD General On track(2023 11:36 AM CALL CENTER SUPERVISOR) Dianne Corona RN Note: Patient will [...] Symptom Monitoring-DM General On track(2023 4:33 PM CALL CENTER SUPERVISOR) Dianne Corona RN Note: Patient will [...] Symptom Monitoring-HTN General On track(2023 4:33 PM CALL CENTER SUPERVISOR) Dianne Corona, RN Note: Patient will monitor [...] documented as of this encounter Care Teams Nursing Services Manager Relationship Specialty Start Date End Date Sanjeev Webster DO [address] [place] [address] PCP - General FAMILY PRACTICE 09/25/20 Dianne Johnson, RN [address] [place] [address] Welder Oxyhydrogen (Ambulatory) REGISTERED NURSE 08/14/20 documented as of this encounter
--- OUTSIDE RECORDS SUMMARY | 2024-03-15 00:53 | XMS_ITS | Encounter Summary ---
Author Organization [facility] Address [facility]6 [facility]. [place], [place] [address] [place] [address] Care Team Providers Care Client Portfolio Manager Name Role Phone Dianne Johnson RN Unavailable [phone] Sanjeev Webster DO Primary Care Provider + Reason for Visit * Reason Onset Date Comments Other 06/11/2023 Encounter Details Date Type Department Care Team (Late st Contact Info) Description 06/11/2023 Telephone [facility] Medical Group Family & Internal Medicine [facility] [address] [place] [address] Sanjeev Webster DO [address] [place] [address] Other Social History Tobacco Use [...] Recorded Patient Health Questionnaire-2 Score 6 12/11/2022 [facility] of Occupat ional Health [...] Progress Notes * Yenifer Ingram MA - 06/12/2023 8:27 AM CDT Information faxed. * Lashawn Vega - 06/11/2023 2:34 PM CDT Deb test case developer is needing pts medication list and list of allergies sent to her. . Attn: Deb Levy. documented in this encounter Plan of Treatment Upcoming Encounters Date Type Department Care Team (Late st Contact Info) Description 04/14/2024 2:00 PM PUNCH CARD OPERATOR Office Visit [facility] Medical Group Multispecialty Care - [facility] 3 [facility], [address] [place] [address] Julio Pulido MD [address] [place] [address] documented as of this encounter Goals Goal Patient Goal Type Associated Problems Recent Progress Patient-Stated? Author Health - patient able to perform ADLs independently General On track(2023 9:49 AM CDT) Dianne Corona, RN Note: 12/17/23: Patient stated she is independent with ASL's. Establish Plan for Symptom Monitoring-CHF General On track(2023 11:36 AM PUNCH CARD OPERATOR) Dianne Corona RN Note: Patient will [...] Symptom Monitoring-COPD General On track(2023 11:36 AM PUNCH CARD OPERATOR) Dianne oCrona RN Note: Patient will recognize symptoms of [...] Symptom Monitoring-DM General On track(2023 4:33 PM PUNCH CARD OPERATOR) Dianne Corona RN Note: Patient will [...] Symptom Monitoring-HTN General On track(2023 4:33 PM PUNCH CARD OPERATOR) Dianne Corona, RN Note: Patient will [...] documented as of this encounter Care Teams Client Portfolio Manager Relationship Specialty Start Date End Date Sanjeev Webster DO [address] [place] [phone] PCP - General FAMILY PRACTICE 09/25/20 Dianne Johnson, RN [address] [place] [address] Scheduler (Ambulatory) REGISTERED NURSE 08/14/20 documented as of this encounter
--- OUTSIDE RECORDS SUMMARY | 2024-03-15 00:53 | XMS_ITS | Encounter Summary ---
Author Organization [facility] Address [facility]6 [facility] [place] [address] [place] [address] Care Team Providers Care Crime Victim Specialist Name Role Phone Dianne Johnson RN Unavailable [phone] Sanjeev Webster DO Primary Care Provider + Encounter Details Date Type Department Care Team (Latest Contact Info) Description 06/15/2023 Travel Social History Tobacco Use Types Packs/Day [...] Recorded Patient Health Questionnaire-2 Score 6 12/11/2022 [facility] of Occupat ional [...] st Contact Info) Description 04/14/2024 2:00 PM TELESALES SUPERVISOR Office Visit [facility] Medical Group Multispecialty Care - [facility] 3 [facility], [address] [place] [address] Julio Pulido MD 3 [place] [address] documented as of this encounter Goals Goal Patient Goal Type Associated Problems Recent Progress Patient-Stated? Author Health - patient able to perform ADLs independently General On track(2023 9:49 AM CDT) Dianne Corona RN Note: 12/17/23: Patient stated she is independent with ASL's. Establish Plan for Symptom Monitoring-CHF General On track(2023 11:36 AM TELESALES SUPERVISOR) Dianne Corona RN Note: Patient will [...] Symptom Monitoring-COPD General On track(2023 11:36 AM TELESALES SUPERVISOR) Dianne Corona RN Note: Patient will [...] Symptom Monitoring-DM General On track(2023 4:33 PM TELESALES SUPERVISOR) Dianne Corona RN Note: Patient will [...] Symptom Monitoring-HTN General On track(2023 4:33 PM TELESALES SUPERVISOR) Dianne Corona, RN Note: Patient will [...] documented as of this encounter Care Teams Crime Victim Specialist Relationship Specialty Start Date End Date Sanjeev Webster DO [address] [place] [address] PCP - General FAMILY PRACTICE 09/25/20 Dianne Johnson, RN [address] [place] [address] Manager Wind (Ambulatory) REGISTERED NURSE 08/14/20 documented as of this encounter
--- OUTSIDE RECORDS SUMMARY | 2024-03-15 00:53 | XMS_ITS | Encounter Summary ---
Author Organization [facility] Address [facility] Formerly [place] [address] [place] [address] Care Team Providers Care Senior Reactor Operator Name Role Phone Dianne Johnson RN Unavailable [phone] Sanjeev Webster DO Primary Care Provider + Encounter Details Date Type Department Care Team (Latest Contact Info) Description 06/22/2023 Travel Social History Tobacco Use Types Packs/Day [...] How often do you attend chur or scientology services? More than 4 times [...] Recorded Patient Health Questionnaire-2 Score 6 12/11/2022 [facility] [...] st Contact Info) Description 04/14/2024 2:00 PM OCEAN FORWARDER Office Visit [facility] Medical Group Multispecialty Care - [facility] 3 [facility], [address] [place] [address] Julio Pulido MD 3 [place] [address] documented as of this encounter Goals Goal Patient Goal Type Associated Problems Recent Progress Patient-Stated? Author Health - patient able to perform ADLs independently General On track(2023 9:49 AM CDT) Dianne Corona RN Note: 12/17/23: Patient stated she is independent with ASL's. Establish Plan for Symptom Monitoring-CHF General On track(2023 11:36 AM OCEAN FORWARDER) Dianne Corona RN Note: Patient will recognize [...] Symptom Monitoring-COPD General On track(2023 11:36 AM OCEAN FORWARDER) Dianne Corona RN Note: Patient will recognize [...] Symptom Monitoring-DM General On track(2023 4:33 PM OCEAN FORWARDER) Dianne Corona RN Note: Patient will manage [...] Symptom Monitoring-HTN General On track(2023 4:33 PM OCEAN FORWARDER) Dianne Corona, RN Note: Patient will monitor [...] as of this encounter Care Teams Senior Reactor Operator Relationship Specialty Start Date End Date Sanjeev Webster DO [address] [place] [address] PCP - General FAMILY PRACTICE 09/25/20 Dianne Johnson, RN [address] [place] [address] Latcher (Ambulatory) REGISTERED NURSE 08/14/20 documented as of this encounter
--- OUTSIDE RECORDS SUMMARY | 2024-03-15 00:53 | XMS_ITS | Encounter Summary ---
Author Organization [facility] Address [facility] [place] [address] [place] [address] Care Team Providers Care Window Shade Cutter Name Role Phone Dianne Johnson RN Unavailable [phone] Sanjeev Webster DO Primary Care Provider + Reason for Visit * Reason Onset Date Comments Lab Results 05/28/2023 Encounter Details Date Type Department Care Team (Late st Contact Info) Description 05/28/2023 Telephone [facility] Medical Group Family & Internal Medicine [id number] [place] [address] Sanjeev Webster DO [address] [place] [address] Lab Results Social History Tobacco [...] Recorded Patient Health Questionnaire-2 Score 6 12/11/2022 [facility] - [...] Progress Notes * Yenifer Ingram MA - 05/29/2023 11:54 AM CDT Spoke with patient and informed her of results. The patient v/u and scheduled a NV. * Yenifer Ingram MA - 05/29/2023 11:48 AM CDT ----- Message from Sanjeev Webster DO sent at 05/27/2023 7:59 AM CDT ----- Venous draw is stable; repeat in 2 weeks. * Lashawn Vega - 05/28/2023 2:54 PM CDT Pt would like results of recent labs done. documented in this encounter Plan of Treatment Upcoming Encounters Date Type Department Care Team (Late st Contact Info) Description 04/14/2024 2:00 PM PUBLICATIONS DISTRIBUTION CLERK Office Visit [facility] Medical Group Multispecialty Care - [facility] 3 [facility], [address] [place] [phone] Julio Pulido MD 3 [place] [address] documented as of this encounter Goals Goal Patient Goal Type Associated Problems Recent Progress Patient-Stated? Author Health - patient able to perform ADLs independently General On track(2023 9:49 AM CDT) Dianne Corona RN Note: 12/17/23: Patient stated she is independent with ASL's. Establish Plan for Symptom Monitoring-CHF General On track(2023 11:36 AM PUBLICATIONS DISTRIBUTION CLERK) Dianne Corona RN Note: Patient will [...] Symptom Monitoring-COPD General On track(2023 11:36 AM PUBLICATIONS DISTRIBUTION CLERK) Dianne Corona RN Note: Patient will [...] Symptom Monitoring-DM General On track(2023 4:33 PM PUBLICATIONS DISTRIBUTION CLERK) Dianne Corona RN Note: Patient will [...] Symptom Monitoring-HTN General On track(2023 4:33 PM PUBLICATIONS DISTRIBUTION CLERK) No Dianne Johnson RN Note: Patient will [...] documented as of this encounter Care Teams Window Shade Cutter Relationship Specialty Start Date End Date Sanjeev Webster DO [address] [place] [address] PCP - General FAMILY PRACTICE 09/25/20 Dianne Johnson, RN [address] [place] [address] Taxonomist (Ambulatory) REGISTERED NURSE 08/14/20 documented as of this encounter
--- OUTSIDE RECORDS SUMMARY | 2024-03-15 00:53 | XMS_ITS | Encounter Summary ---
Author Organization [facility] Address [facility]6 [facility] [place] [address] [place] [address] Care Team Providers Care Brick Pointer Name Role Phone Casey Johnson RN Unavailable [phone] Sanjeev Webster DO Primary Care Provider + Reason for Visit * Reason Onset Date Comments Care Management 07/08/2023 Encounter Details Date Type Department Care Team (Late st Contact Info) Description 07/08/2023 Patient Outreach [facility] Medical Group Family & Internal Medicine [address] [address] Casey Johnson, RN [address] [place] [address] Care Management Social History Tobacco [...] How often do you attend chur or zoroastrianism services? More than 4 times per year 08/26/2022 Do you belong to any clubs o r organizations such as moravian groups, unions, fraternal or athletic groups, or [...] Recorded Patient Health Questionnaire-2 Score 6 12/11/2022 [facility] - Occupational [...] Progress Notes * Casey Johnson RN - 07/08/2023 9:01 AM CDT Chronic Care Management: 07/08/23: Left message to return phone call. INR is still low. Go over foods etc. 07/08/23: Contacted patient see below for details. Patient concerns or urgent matters that need addressed: None identified during this call. Patient Status: Contacted patient today and reviewed INR results from 07/06/23. Informed patient that INR is low again. Educated patient on warfarin interacting with certain foods such as foods with increased amountsof vitamin k. Educated on foods high in vitamin k such as green leafy vegetables such as broccoli, spinach, lettuce, asparagus, brussel sprouts, johanna greens etc. Encouraged patient if she is goingto eat foods with vitamin k to be consistent. Patient stated she had a salad on for the first time in a long time. Encouraged patient to eat a similar amount of salad each week if she likes salad. Educated patient vitamin k can lower the PT/INR and make the warfarin less effective. This can increase risk for blood clots. Encouraged to be consistent with what she eats and not to make any major changes to her diet which can effect her INR result. Patient verbalizes understanding. Patient denies any issues with CHF or COPD exacerbations s/s at this time. Stated she purchased a BP kit with thermometer and pulse ox. She plans on checking her BP and record readings. Patient stated she is no longer on Trulicity due to cost. Stated PCP is trying to get her approved for a medication through the PAP. She has the paperwork she needs to sign. Stated she plans on giving it to the PCP office to fax for her tomorrow. No further needs noted at this time. Encouraged to call with any changes. Patient thanked CC for calling. Plan of Care: resource coordinator will continue to follow up by [...] Future Appointments Date Time Provider Department Center 07[facility]13[facility]2023 1[facility] 08/06/2023 11:20 AM Sanjeev Webster DO [facility] 08/11/2023 11:00 AM ALEX OF OPEN MRI (CONVENIENT CARE) [facility] ALEX UR 08/11/2023 12:00 PM ALEX OF OPEN MRI (CONVENIENT CARE) [facility] ALEX UR 09/04/2023 1:00 PM Sania Gomez MD [facility]ARYP[facility]L P[facility] 04/14/2024 2:00 PM Julio Pulido MD MGBASSAMUSOF MG [facility] Quality care gaps: Health Maintenance Topic Date Due Kidney Health Evaluation Never done Annual Medicare Wellness Visit Never done Lipid Panel 08/29/2022 ASCVD LDL 08/29/2022 Hemoglobin A1C 07/13/2023 Zoster Vaccines (3 of 3) 02/17/2024 (Originally 01/06/2023) RSV Immunization or 60+ Years (1 - 1-dose 60+ series) 02/17/2024 (Originally 2004) COVID-19 Vaccine (2022- season) 2112 (Originally 11/07/2022) Diabetes: Retinopathy Eye Exam 04/21/2024 Dexa Scan (General) 02/24/2025 DTaP, Tdap and Td Vaccines (4 - Td or Tdap) 09/05/2030 Pneumococcal Vaccine: 65+ Years Completed Hepatitis C Completed Meningococcal Vaccine Aged Out RSV Immunizations Under 20 Months Aged Out Problem List: Patient Active Problem List Diagnosis Abnormal stress test Chronic anticoagulation Coronary artery disease involving chitimacha coronary artery of chitimacha heart without angina pectoris Dyspnea on exertion H/O mechanical aortic valve replacement Hypertensive heart disease with congestive heart failure ([facility]HS/HCC) LBBB (left bundle branch block) Myopathy VAZQUEZ (obstructive sleep apnea) Paroxysmal atrial flutter ([facility] HHS/HCC) Benign hypertension with CKD (chronic kidney disease) stage III ([facility] H[facility]/HCC) Memory deficits Hearing deficit, bilateral History of cataract extraction, unspecified laterality Vitamin D deficiency Hypercalcemia Chronic frontal sinusitis Constipation, unspecified constipation type Chronic bilateral low back pain without sciatica Iron deficiency anemia, unspecified iron deficiency anemia type Disorder of skin of trunk Anemia Body mass index (BMI) 31.0-31.9, adult 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[facility]) Benign hypertension with stage 3b chronic kidney disease ([facility] Cobalamin deficiency Compression fracture of thoracic vertebra ([facility]) Depression Diabetic polyneuropathy ([facility]) Disorder of rotator cuff Diverticular disease Dysphagia Elevated troponin Gastroesophageal reflux disease without esophagitis Hyperlipidemia, unspecified hyperlipidemia type Vascular dementia ([facility]) Unknown and unspecified causes of morbidity Syncope, unspecified syncope type Wrist joint pain Respiratory illness Requires lifelong warfarin therapy Hyperparathyroidism ([facility]) Presence of prosthetic heart valve Plantar fascial fibromatosis Peripheral neuropathy Parathyroid adenoma Polymyalgia rheumatica ([facility]) Osteoporosis Numbness Muscle cramps Closed stable burst fracture of sixth thoracic vertebra, initial encounter ([facility]) Chest pain Contusion of scalp Knee pain Localized, primary osteoarthritis Osteoarthritis of knee Traumatic closed displaced fracture of distal end of radius Shoulder joint pain Hyperlipidemia associated with type 2 diabetes mellitus ([facility]) PVD (peripheral vascular disease) ([facility]) Hematoma Anxiety Diastolic heart failure ([facility]) Internal hemorrhoids Leukoencephalopathy Major depression single episode, in partial remission ([facility]) Metacarpal bone fracture Mitral valve disorder Peripheral arterial occlusive disease ([facility]) Primary osteoarthritis involving multiple joints Vision loss COPD (chronic obstructive pulmonary disease) ([facility]) Diarrhea Drug-induced constipation H/O mechanical aortic valve replacement Age-related osteoporosis with current pathological fracture Care Management Physical deconditioning Chronic heart failure with preserved ejection fraction (HFpEF) ([facility]) Paroxysmal atrial fibrillation ([facility]) Hypertension associated with type 2 diabetes mellitus ([facility]) Encounter for prophylactic measures, unspecified Graves' disease Cirrhosis of liver without ascites, unspecified hepatic cirrhosis type ([facility]) Stage 3b chronic kidney disease ([facility]) OLIVE (acute kidney injury) ([facility]) Heart failure with mildly reduced ejection fraction (HFmrEF) ([facility]) Hyperthyroidism Medications: Current Outpatient Medications Medication [...] 15 Time spent performing chart review (minutes): 9 Total time (minutes): 24 CASEY JOHNSON RN I reviewed the patient's status and education provided by CASEY JOHNSON RN. I agree with the findings and recommendations made. Cosigned by Sanjeev Webster DO at 07/09/2023 8:45 AM CDT documented in this encounter Plan of Treatment Upcoming Encounters Date Type Department Care Team (Late st Contact Info) Description 04/14/2024 2:00 PM MARINE PIPEFITTER Office Visit [facility] Medical Group Multispecialty Care - [facility] 3 [facility], [address] [place] [address] Julio Pulido MD [address] [place] [address] documented as of this encounter Goals Goal Patient Goal Type Associated Problems Recent Progress Patient-Stated? Author Health - patient able to perform ADLs independently General On track(2023 9:49 AM CDT) Casey Corona RN Note: 12/17/23: Patient stated she is independent with ASL's. Establish Plan for Symptom Monitoring-CHF General On track(2023 11:36 AM MARINE PIPEFITTER) Casey Corona RN Note: Patient will recognize [...] Monitoring-COPD General On track(2023 11:36 AM MARINE PIPEFITTER) Casey Corona RN Note: Patient will recognize [...] Monitoring-DM General On track(2023 4:33 PM MARINE PIPEFITTER) Casey Corona RN Note: Patient will manage [...] Monitoring-HTN General On track(2023 4:33 PM MARINE PIPEFITTER) No Johnson, Casey R, RN Note: Patient will monitor B/P [...] disease, without long-term current use of insulin ([facility])- Primary Chronic heart failure with preserved ejection fraction (HFpEF) ([facility]) Chronic obstructive pulmonary disease, unspecified COPD type ([facility]) documented in this encounter Additional Health Concerns Assessment Noted Time PHQ-9 Depression Total Score: 13 023 3:56 PM CDT documented as of this encounter Care Teams Brick Pointer Relationship Specialty Start Date End Date Sanjeev Webster DO [address] [place] [address] PCP - General FAMILY PRACTICE 09/25/20 Casey Johnson, RN [address] [place] [address] Reclamation Worker (Ambulatory) REGISTERED NURSE 08/14/20 documented as of this encounter
--- OUTSIDE RECORDS SUMMARY | 2024-03-15 00:53 | XMS_ITS | Encounter Summary ---
Author Organization [facility] Address [facility]6 [facility]. [place], [place] [address] [place] [address] Care Team Providers Care Vertical Lathe Operator Name Role Phone Dianne Johnson RN Unavailable [phone] Sanjeev Webster DO Primary Care Provider + Reason for Visit * Reason Onset Date Comments Results 07/14/2023 Encounter Details Date Type Department Care Team (Late st Contact Info) Description 07/14/2023 Telephone [facility] Medical Group Family & Internal Medicine [id number] [place] [address] Sanjeev Webster DO [facility] [address] [place] [address] Results Social History Tobacco Use [...] any clubs o r organizations such as methodist groups, unions, fraternal or athletic groups, or [...] Progress Notes * Natalee Brown RN - 07/14/2023 9:54 AM CDT Patient notified and verbalized understanding. Opportunity given for all questions to be answered, no further needs voiced at this time. LL-07/14/23 * Natalee Brown RN - 07/14/2023 9:49 AM CDT ----- Message from Sanjeev Webster DO sent at 07/13/2023 11:01 PM CDT ----- Continue 7 mg dosing and recheck in 1 week. documented in this encounter Plan of Treatment Upcoming Encounters Date Type Department Care Team (Late st Contact Info) Description 04/14/2024 2:00 PM INSTRUMENT TECHNICIAN Office Visit [facility] Medical Group Multispecialty Care - [facility] 3 [facility], [address] [place] [phone] Julio Pluido MD [address] [place], [place] [id number] documented as of this encounter Goals Goal Patient Goal Type Associated Problems Recent Progress Patient-Stated? Author Health - patient able to perform ADLs independently General On track(2023 9:49 AM CDT) No Dianne Johnson RN Note: 12/17/23: Patient stated she is independent with ASL's. Establish Plan for Symptom Monitoring-CHF General On track(2023 11:36 AM INSTRUMENT TECHNICIAN) Dianne Corona RN Note: Patient will [...] Symptom Monitoring-COPD General On track(2023 11:36 AM INSTRUMENT TECHNICIAN) Dianne Corona RN Note: Patient will [...] Symptom Monitoring-DM General On track(2023 4:33 PM INSTRUMENT TECHNICIAN) Dianne Corona RN Note: Patient will [...] Symptom Monitoring-HTN General On track(2023 4:33 PM INSTRUMENT TECHNICIAN) No Dianne Johnson RN Note: Patient will [...] documented as of this encounter Care Teams Vertical Lathe Operator Relationship Specialty Start Date End Date Sanjeev Webster DO [address] [place] [address] PCP - General FAMILY PRACTICE 09/25/20 Dianne Johnson, RN [address] [place] [address] Contact Manager (Ambulatory) REGISTERED NURSE 08/14/20 documented as of this encounter
--- OUTSIDE RECORDS SUMMARY | 2024-03-15 00:53 | XMS_ITS | Encounter Summary ---
Author Organization [facility] Address [facility] [place] [address] [place] [address] Care Team Providers Care Graduate Civil Engineer Name Role Phone Dianne Johnson RN Unavailable [phone] Sanjeev Webster DO Primary Care Provider + Reason for Visit * Reason Comments Allied Health Visit INR Encounter Details Date Type Department Care Team (Latest Contact Info) Description 06/08/2023 1:40 PM CDT Allied Health/Nurse Visit [facility] Medical Group Family & Internal Medicine [facility] [address] [place] [address] Sanjeev Webster DO [address] [place] [address] Allied Health Visit (INR) Social [...] often do you attend chur ch or adventism services? More than 4 times [...] Recorded Patient Health Questionnaire-2 Score 6 12/11/2022 [facility] Occupat ional Health - [...] Progress Notes * Natalee Brown RN - 06/08/2023 1:40 PM CDT Patient in today for INR. Patients INR was very elevated. Recheck PT/INR via blood draw. Patient tolerated well. Patient should hold coumadin x 2 days and then recheck on Thursday. Left message for patient's daughter in law to hold the medication. Opportunity given for all questions to be answered, no further needs voiced at this time. LL-06/08/23 documented in this encounter Plan of Treatment Upcoming Encounters Date Type Department Care Team (Late st Contact Info) Description 04/14/2024 2:00 PM CALENDER LET OFF HELPER Office Visit [facility] Medical Group Multispecialty Care - [address], [address] [place] [address] Julio Pulido MD [address] [place] [address] documented as of this encounter Goals Goal Patient Goal Type Associated Problems Recent Progress Patient-Stated? Author Health - patient able to perform ADLs independently General On track(2023 9:49 AM CDT) Dianne Corona, RN Note: 12/17/23: Patient stated she is independent with ASL's. Establish Plan for Symptom Monitoring-CHF General On track(2023 11:36 AM CALENDER LET OFF HELPER) iDanne Corona, RN Note: Patient will recognize symptoms [...] Symptom Monitoring-COPD General On track(2023 11:36 AM CALENDER LET OFF HELPER) Dianne Corona RN Note: Patient will [...] Symptom Monitoring-DM General On track(2023 4:33 PM CALENDER LET OFF HELPER) Dianne Corona RN Note: Patient will [...] Symptom Monitoring-HTN General On track(2023 4:33 PM CALENDER LET OFF HELPER) Dianne Corona RN Note: Patient will [...] Associated Diagnosis Comments PROTHROMBIN TIME, VENOUS Routine 06/08/2023 1:30 PM CDT [facility] (current) use of anticoagulants COLLECT.CAPILLARY (FNGR,HEEL,EAR) Routine 06/08/2023 1:13 PM CDT 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 THERAPEUTIC RANGE (INR): ?VENOUS THROMBOSIS ? 2.0-3.0 ?PULMONARY EMBOLUS ? 2.0-3.0 ?? MECHANICAL PROSTHETIC VALVES ? 2.5-3.5 CRITICAL VALUE VERIFIED, CALLED TO, AND READ BACK BY: DR ZOYA Roper 06/08/2023 FREDI 06/08/2023 1:30 PM CDT Sanjeev Webster DO LABORATORY Final Re sult [facility] [address] [facility] [place] [place] [address], * PROTIME/INR, FINGERSTICK (06/08/2023) INR WHOLE BLOOD 7.00 [facility] Comment:rechecked other hand 7.1. 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
--- OUTSIDE RECORDS SUMMARY | 2024-03-15 00:53 | XMS_ITS | Encounter Summary ---
Author Organization [facility] Address [facility]6 [facility] [place] [address] [place] [address] Care Team Providers Care Cryogenic Transport Driver Name Role Phone Dianne Johnson RN Unavailable [phone] Sanjeev Webster DO Primary Care Provider + Encounter Details Date Type Department Care Team (Latest Contact Info) Description 06/08/2023 Travel Social History Tobacco Use Types Packs/Day [...] any clubs o r organizations such as hindu groups, unions, fraternal or athletic groups, or [...] Recorded Patient Health Questionnaire-2 Score 6 12/11/2022 [facility] - [...] st Contact Info) Description 04/14/2024 2:00 PM TURKEY CLEANER Office Visit [facility] Medical Group Multispecialty Care - [facility] 3 [facility], [address] [place] [address] Julio Pulido MD 3 [place] [address] documented as of this encounter Goals Goal Patient Goal Type Associated Problems Recent Progress Patient-Stated? Author Health - patient able to perform ADLs independently General On track(2023 9:49 AM CDT) Dianne Corona RN Note: 12/17/23: Patient stated she is independent with ASL's. Establish Plan for Symptom Monitoring-CHF General On track(2023 11:36 AM TURKEY CLEANER) Dianne Corona RN Note: Patient will recognize [...] Symptom Monitoring-COPD General On track(2023 11:36 AM TURKEY CLEANER) Dianne Corona RN Note: Patient will recognize [...] Symptom Monitoring-DM General On track(2023 4:33 PM TURKEY CLEANER) Dianne Corona RN Note: Patient will manage [...] Symptom Monitoring-HTN General On track(2023 4:33 PM TURKEY CLEANER) Dianne Corona, RN Note: Patient will monitor [...] documented as of this encounter Care Teams Cryogenic Transport Driver Relationship Specialty Start Date End Date Sanjeev Webster DO [address] [place] [address] PCP - General FAMILY PRACTICE 09/25/20 Dianne Johnson, RN [address] [place] [address] Jawbone Puller (Ambulatory) REGISTERED NURSE 08/14/20 documented as of this encounter
--- OUTSIDE RECORDS SUMMARY | 2024-03-15 00:53 | XMS_ITS | Encounter Summary ---
Author Organization [facility] Address [facility]6 [facility]. [place], [place] [address] [place] [address] Care Team Providers Care Reporting Developer Name Role Phone Dianne Johnson RN Unavailable [phone] Sanjeev Webster DO Primary Care Provider + Reason for Visit * Reason Comments Anticoagulation Encounter Details Date Type Department Care Team (Late st Contact Info) Description 07/21/2023 1:20 PM CDT Allied Health/Nurse Visit [facility] Medical Group Family & Internal Medicine [address] [address] Sanjeev Webster DO [facility]1 [place] [address] Anticoagulation Social History Tobacco Use [...] often do you attend chur ch or anglican services? More than 4 times per year [...] st Contact Info) Description 04/14/2024 2:00 PM STITCH WHEELER Office Visit [facility] Medical Group Multispecialty Care - [facility] 3 [facility], [address] [place] [address] Julio Pulido MD 3 [place] [address] documented as of this encounter Goals Goal Patient Goal Type Associated Problems Recent Progress Patient-Stated? Author Health - patient able to perform ADLs independently General On track(2023 9:49 AM CDT) Dianne Corona RN Note: 12/17/23: Patient stated she is independent with ASL's. Establish Plan for Symptom Monitoring-CHF General On track(2023 11:36 AM STITCH WHEELER) Dianne Corona RN Note: Patient will recognize [...] Symptom Monitoring-COPD General On track(2023 11:36 AM STITCH WHEELER) Dianne Corona RN Note: Patient will recognize [...] Symptom Monitoring-DM General On track(2023 4:33 PM STITCH WHEELER) Dianne Corona RN Note: Patient will manage [...] Symptom Monitoring-HTN General On track(2023 4:33 PM STITCH WHEELER) Dianne Corona RN Note: Patient will monitor [...] Diagnosis Comments COLLECTION VENOUS BLOOD VENIPUNCTURE Routine 07/21/2023 1:52 PM CDT Chronic anticoagulation PROTHROMBIN TIME, VENOUS Routine 07/21/2023 1:52 PM CDT Chronic anticoagulation COLLECT.CAPILLARY (FNGR,HEEL,EAR) Routine 07/21/2023 1:43 PM CDT Chronic anticoagulation PROTHROMBIN TIME, FINGERSTICK Routine 07/21/2023 Chronic anticoagulation documented in this encounter Results * (ABNORMAL) PROTIME/INR, VENOUS (07/21/2023 1:52 PM CDT) PROTIME 25.2(H) 9.3 - 11.6 SEC 07/21/2023 7:39 PM CDT [facility] INR 2.6(H) 0.9 - 1.1 07/21/2023 7:39 PM CDT [facility] Comment: TREATMENT OR PROPHYLAXIS AGAINST: ?? THERAPEUTIC RANGE (INR): ?VENOUS THROMBOSIS ? 2.0-3.0 ?PULMONARY EMBOLUS ? 2.0-3.0 ?? MECHANICAL PROSTHETIC VALVES ? 2.5-3.5 07/21/2023 1:52 PM CDT Sanjeev Webster DO LABORATORY Final Re sult Performing Organization Address [facility] Co de Phone Number [facility] [address] [place] [address], [place] [phone] * PROTIME/INR, FINGERSTICK (07/21/2023) INR WHOLE BLOOD 2.90 MG-S [facility] Comment:venous drawn for dc ification 07/21/2023 Sanjeev Webster DO LABORATORY Final Re sult Performing Organization Address [facility] Co de Phone Number [facility] [address] [place] [address], documented in this encounter Visit Diagnoses Diagnosis Chronic anticoagulation- Primary Encounter for long-term (current) use of anticoagulants documented in this encounter Additional Health Concerns Assessment Noted Time PHQ-9 Depression Total Score: 13 023 3:56 PM CDT documented as of this encounter Care Teams Reporting Developer Relationship Specialty Start Date End Date Sanjeev Webster DO [address] [place] [address] PCP - General FAMILY PRACTICE 09/25/20 Dianne Johnson, RN [address] [place] [address] Kindergarten Aide (Ambulatory) REGISTERED NURSE 08/14/20 documented as of this encounter
--- OUTSIDE RECORDS SUMMARY | 2024-03-15 00:53 | XMS_ITS | Encounter Summary ---
Author Organization [facility] Address [facility]6 [facility] [place] [address] [place] [address] Care Team Providers Care Manager Transition Name Role Phone Dianne Johnson RN Unavailable [phone] Sanjeev Webster DO Primary Care Provider + Reason for Visit * Reason Comments Allied Health Visit INR Encounter Details Date Type Department Care Team (Latest Contact Info) Description 06/11/2023 2:00 PM CDT Allied Health/Nurse Visit [facility] Medical Group Family & Internal Medicine [facility] [address] [place] [address] Sanjeev Webster DO [address] [place] [address] Allied Health Visit (INR) Social [...] often do you attend chur ch or catholic services? More than 4 times [...] Recorded Patient Health Questionnaire-2 Score 6 12/11/2022 [facility]at ional [facility] [...] Progress Notes * Natalee Brown RN - 06/11/2023 2:00 PM CDT Patient in today for PT/ INR. Patient tolerated well. Patient is aware of results. Patient will restart medication at 5 mg daily and recheck on Thursday. Patient's daughter in law is aware of medication changes. Opportunity given for all questions to be answered, no further needs voiced at this time. LL-06/11/23 documented in this encounter Plan of Treatment Upcoming Encounters Date Type Department Care Team (Late st Contact Info) Description 04/14/2024 2:00 PM CONTINUOUS MINING OPERATOR Office Visit [facility] Medical Group Multispecialty Care - [facility] 3 [facility], [address] [place] [address] Julio Pulido MD 3 [place] [address] documented as of this encounter Goals Goal Patient Goal Type Associated Problems Recent Progress Patient-Stated? Author Health - patient able to perform ADLs independently General On track(2023 9:49 AM CDT) Dianne Corona, DALE Note: 12/17/23: Patient stated she is independent with ASL's. Establish Plan for Symptom Monitoring-CHF General On track(2023 11:36 AM CONTINUOUS MINING OPERATOR) Dianne Corona RN Note: Patient will [...] Symptom Monitoring-COPD General On track(2023 11:36 AM CONTINUOUS MINING OPERATOR) Dianne Corona RN Note: Patient will [...] Symptom Monitoring-DM General On track(2023 4:33 PM CONTINUOUS MINING OPERATOR) Dianne Corona RN Note: Patient will [...] Symptom Monitoring-HTN General On track(2023 4:33 PM CONTINUOUS MINING OPERATOR) Dianne Corona RN Note: Patient will [...] Date/Time Associated Diagnosis Comments COLLECT.CAPILLARY (FNGR,HEEL,EAR) Routine 06/11/2023 2:04 PM CDT terminal makeup operator (current) use of anticoagulants PROTHROMBIN TIME, FINGERSTICK Routine 06/11/2023 terminal makeup operator (current) use of anticoagulants documented in this encounter Results * PROTIME/INR, FINGERSTICK (06/11/2023) INR WHOLE BLOOD 2.10 [facility] 06/11/2023 us Sanjeev Webster DO LABORATORY [place] [address], documented in this encounter Visit Diagnoses Diagnosis residential (current) use of anticoagulants- Primary Long-term (current) use of anticoagulants H/O mechanical aortic valve replacement Heart valve replaced by other means documented in this encounter Additional Health Concerns Assessment Noted Time PHQ-9 Depression Total Score: 13 023 3:56 PM CDT documented as of this encounter Care Teams Manager Transition Relationship Specialty Start Date End Date Sanjeev Webster DO [address] [place] [address] PCP - General FAMILY PRACTICE 09/25/20 Dianne Johnson, RN [address] [place], [place] [address] Leather Parts Matcher (Ambulatory) REGISTERED NURSE 08/14/20 documented as of this encounter
--- OUTSIDE RECORDS SUMMARY | 2024-03-15 00:53 | XMS_ITS | Encounter Summary ---
Author Organization [facility] Address [facility]6 [facility]. [place], [place] [address] [place] [address] Care Team Providers Care Bullet Charging Machine Operator Name Role Phone Dianne Johnson RN Unavailable [phone] Sanjeev Webster DO Primary Care Provider + Reason for Visit * Reason Comments Anticoagulation Encounter Details Date Type Department Care Team (Late st Contact Info) Description 06/29/2023 1:00 PM CDT Allied Health/Nurse Visit [facility] Medical Group Family & Internal Medicine [address] [place] [address] Sanjeev Webster DO [facility]1 [place] [address] Anticoagulation Social History Tobacco Use [...] Recorded Patient Health Questionnaire-2 Score 6 12/11/2022 [facility] Occupat ional Health - [...] st Contact Info) Description 04/14/2024 2:00 PM SUPPORT ASSOCIATE Office Visit [facility] Medical Group Multispecialty Care - [facility] 3 [facility], [address] [place] [address] Julio Pulido MD 3 [place] [address] documented as of this encounter Goals Goal Patient Goal Type Associated Problems Recent Progress Patient-Stated? Author Health - patient able to perform ADLs independently General On track(2023 9:49 AM CDT) Dianne Corona RN Note: 12/17/23: Patient stated she is independent with ASL's. Establish Plan for Symptom Monitoring-CHF General On track(2023 11:36 AM SUPPORT ASSOCIATE) Dianne Corona RN Note: Patient will recognize [...] Symptom Monitoring-COPD General On track(2023 11:36 AM SUPPORT ASSOCIATE) Dianne Corona RN Note: Patient will recognize [...] Symptom Monitoring-DM General On track(2023 4:33 PM SUPPORT ASSOCIATE) Dianne Corona RN Note: Patient will manage [...] Symptom Monitoring-HTN General On track(2023 4:33 PM SUPPORT ASSOCIATE) Dianne Corona RN Note: Patient will monitor [...] Date/Time Associated Diagnosis Comments COLLECT.CAPILLARY (FNGR,HEEL,EAR) Routine 06/29/2023 12:48 PM CDT assisted (current) use of anticoagulants PROTHROMBIN TIME, FINGERSTICK Routine 06/29/2023 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 documented in this encounter Results * PROTIME/INR, FINGERSTICK (06/29/2023) INR WHOLE BLOOD 2.00 [facility] 06/29/2023 us Sanjeev Webster DO LABORATORY Final Re sult [facility] [address] [place] [address], documented in this encounter Visit Diagnoses Diagnosis 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
--- OUTSIDE RECORDS SUMMARY | 2024-03-15 00:53 | XMS_ITS | Encounter Summary ---
Author Organization [facility] Address [facility]6 [facility] [place] [address] [place] [address] Care Team Providers Care Preschool Director Name Role Phone Dianne Johnson RN Unavailable [phone] Sanjeev Webster DO Primary Care Provider + Reason for Visit * Reason Onset Date Comments Results 07/08/2023 Anticoagulation 07/08/2023 Change to 7mg Encounter Details Date Type Department Care Team (Late st Contact Info) Description 07/08/2023 Telephone [facility] Medical Group Family & Internal Medicine [phone] [place] [address] Sanjeev Webster DO [address] [place] [address] Results; Anticoagulation (Change to 7mg /) Social History Tobacco Use Types Packs/Day Years [...] Score 6 12/11/2022 [facility] - Occupational Stress Questionnaire Answer Date [...] Progress Notes * Gloria Patel MA - 07/08/2023 11:56 AM CDT 07-08-23: Received call from Izzy returning a call for the patient. [address] was calling to informed that the patient will need to increase her Warfarin to 7mg daily and will recheck in 1 wk. Has a appt on 07-13-23. Asked if will need a refill on the 2mg Warfarin to make the full 7mg dosage and stated yes will need rx sent out. Informed will send out to preferred pharmacy [facility] in [facility]. Izzy garrison/riaz mckeon * Yenifer Ingram MA - 07/08/2023 11:21 AM CDT Called Izzy to discuss medication changes. I had to LMOM for r/c. Spoke with patient and scheduled NV for Thursday. Need to contact izzy to advise on medication changes. Need to verify if a rx needs sent out for 2mg warfarin. ----- Message from Sanjeev Webster DO sent at 07/07/2023 8:31 AM CDT ----- This is low again; let's increase to 7 mg daily and recheck in 1 week. documented in this encounter Plan of Treatment Upcoming Encounters Date Type Department Care Team (Late st Contact Info) Description 04/14/2024 2:00 PM CURRICULUM CONSULTANT Office Visit [facility] Medical Group Multispecialty Care - [facility] [address], [address] [place] [address] Julio Pulido MD 3 [place] [address] documented as of this encounter Goals Goal Patient Goal Type Associated Problems Recent Progress Patient-Stated? Author Health - patient able to perform ADLs independently General On track(2023 9:49 AM CDT) Dianne Corona, RN Note: 12/17/23: Patient stated she is independent with ASL's. Establish Plan for Symptom Monitoring-CHF General On track(2023 11:36 AM CURRICULUM CONSULTANT) Dianne Corona, RN Note: Patient will [...] Symptom Monitoring-COPD General On track(2023 11:36 AM CURRICULUM CONSULTANT) Dianne Corona, RN Note: Patient will [...] Symptom Monitoring-DM General On track(2023 4:33 PM CURRICULUM CONSULTANT) Dianne Corona RN Note: Patient will [...] Symptom Monitoring-HTN General On track(2023 4:33 PM CURRICULUM CONSULTANT) Dianne Corona RN Note: Patient will monitor [...] documented as of this encounter Care Teams Preschool Director Relationship Specialty Start Date End Date Sanjeev Webster DO [address] [place] [phone] PCP - General FAMILY PRACTICE 09/25/20 Dianne Johnson RN [address] [place] [address] Second Grade Teacher (Ambulatory) REGISTERED NURSE 08/14/20 documented as of this encounter
--- OUTSIDE RECORDS SUMMARY | 2024-03-15 00:53 | XMS_ITS | Encounter Summary ---
Author Organization [facility] Address [facility]6 [facility]. [place], [place] [address] [place] [address] Care Team Providers Care Creel Operator Name Role Phone Dianne Johnson RN Unavailable [phone] Sanjeev Webster DO Primary Care Provider + Reason for Visit * Reason Comments Anticoagulation Encounter Details Date Type Department Care Team (Late st Contact Info) Description 07/06/2023 1:00 PM CDT Allied Health/Nurse Visit [facility] Medical Group Family & Internal Medicine [address] [place] [address] Sanjeev Webster DO [facility] [place] [address] Anticoagulation Social History Tobacco Use [...] often do you attend chur ch or hinduism services? More than 4 times [...] Recorded Patient Health Questionnaire-2 Score 6 12/11/2022 [facility] of Occupat ional Health - Occupational [...] st Contact Info) Description 04/14/2024 2:00 PM PARTS CONSULTANT Office Visit [facility] Medical Group Multispecialty Care - [facility] 3 [facility], [address] [place] [address] Julio Pulido MD [address] [place] [address] documented as of this encounter Goals Goal Patient Goal Type Associated Problems Recent Progress Patient-Stated? Author Health - patient able to perform ADLs independently General On track(2023 9:49 AM CDT) Dianne Corona RN Note: 12/17/23: Patient stated she is independent with ASL's. 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 COLLECT.CAPILLARY (FNGR,HEEL,EAR) Routine 07/06/2023 1:16 PM CDT custodial (current) use of anticoagulants COLLECTION VENOUS BLOOD VENIPUNCTURE Routine 07/06/2023 1:16 PM CDT terminal worker (current) use of anticoagulants PROTHROMBIN TIME, FINGERSTICK Routine 07/06/2023 terminal worker (current) use of anticoagulants documented in this encounter Results * (ABNORMAL) PROTIME/INR, VENOUS (07/06/2023 2:14 PM CDT) PROTIME 13.6(H) 9.3 - 11.6 SEC 07/06/2023 8:37 PM CDT [facility] INR 1.3(H) 0.9 - 1.1 07/06/2023 8:37 PM CDT [facility] Comment: TREATMENT OR PROPHYLAXIS AGAINST: ?? THERAPEUTIC RANGE (INR): ?VENOUS THROMBOSIS ? 2.0-3.0 ?PULMONARY EMBOLUS ? 2.0-3.0 ?? MECHANICAL PROSTHETIC VALVES ? 2.5-3.5 07/06/2023 2:14 PM CDT Sanjeev Webster DO LABORATORY Final Re sult Performing Organization Address [facility] Co de Phone Number [facility] [address] [place] [address], [place] [phone] * PROTIME/INR, FINGERSTICK (07/06/2023) INR WHOLE BLOOD 1.30 [facility] 07/06/2023 Sanjeev Webster DO LABORATORY Final Re sult Performing Organization Address City/[facility]/ZIP Co de Phone Number [facility] [address] [place] [address], documented in this encounter Visit Diagnoses Diagnosis 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
--- OUTSIDE RECORDS SUMMARY | 2024-03-15 00:53 | XMS_ITS | Encounter Summary ---
Author Organization [facility] Address [facility]6 [place] [address] [place] [address] Care Team Providers Care Service Desk Manager Name Role Phone Dianne Johnson RN Unavailable [phone] Sanjeev Webster DO Primary Care Provider + Reason for Visit * Reason Onset Date Comments Lab Results 06/08/2023 Encounter Details Date Type Department Care Team (Late st Contact Info) Description 06/08/2023 Telephone [facility] Medical Group Family Medicine [facility] [address] [place] [address] Sumeet Grady MD [address] [facility] [place] [address] Lab Results Social History Tobacco Use Types [...] often do you attend chur ch or baptist services? More than 4 times [...] Recorded Patient Health Questionnaire-2 Score 6 12/11/2022 [facility] of Occupat ional Health [...] documented in this encounter Progress Notes * Sumeet Grady MD - 06/08/2023 7:47 PM CDT On-call encounter at 7:21PM. Critical INR of 5.7. Previous checks today were 7.0/7.1. Plan remains to hold coumadin x 2 days and then recheck on 06/11/23. Spoke with patient & relayed critical lab result, she understands the plan & will callback with any additional questions. documented in this encounter Plan of Treatment Upcoming Encounters Date Type Department Care Team (Late st Contact Info) Description 04/14/2024 2:00 PM MELTER SUPERVISOR OXYGEN FURNACE Office Visit [facility] Medical Group Multispecialty Care - [facility] 3 [facility], [address] [place] [address] Julio Pulido MD 3 [place] [address] documented as of this encounter Goals Goal Patient Goal Type Associated Problems Recent Progress Patient-Stated? Author Health - patient able to perform ADLs independently General On track(2023 9:49 AM CDT) Dianne Corona, DALE Note: 12/17/23: Patient stated she is independent with ASL's. Establish Plan for Symptom Monitoring-CHF General On track(2023 11:36 AM MELTER SUPERVISOR OXYGEN FURNACE) Dianne Corona, RN Note: Patient will recognize [...] Symptom Monitoring-COPD General On track(2023 11:36 AM MELTER SUPERVISOR OXYGEN FURNACE) Dianne Corona RN Note: Patient will recognize [...] Symptom Monitoring-DM General On track(2023 4:33 PM MELTER SUPERVISOR OXYGEN FURNACE) Dianne Corona RN Note: Patient will manage [...] Symptom Monitoring-HTN General On track(2023 4:33 PM MELTER SUPERVISOR OXYGEN FURNACE) Dianne Corona RN Note: Patient will monitor [...] as of this encounter Care Teams Service Desk Manager Relationship Specialty Start Date End Date Sanjeev Webster DO [address] [place] [address] [phone] PCP - General FAMILY PRACTICE 09/25/20 Dianne Johnson, RN [address] [place] [address] Field Irrigation Worker (Ambulatory) REGISTERED NURSE 08/14/20 documented as of this encounter
--- OUTSIDE RECORDS SUMMARY | 2024-03-15 00:53 | XMS_ITS | Encounter Summary ---
Author Organization [facility] Address [facility] [place], [place] [address] [place] [address] Care Team Providers Care Research Spec Name Role Phone Dianne Johnson RN Unavailable [phone] Sanjeev Webster DO Primary Care Provider + Reason for Visit * Reason Onset Date Comments Results 06/23/2023 Encounter Details Date Type Department Care Team (Late st Contact Info) Description 06/23/2023 Telephone [facility] Family & Internal Medicine [id number] [place] [address] Sanjeev Webster DO [facility] [place] [address] Results Social History Tobacco Use [...] any clubs o r organizations such as adventism groups, unions, fraternal or athletic groups, or [...] Recorded Patient Health Questionnaire-2 Score 6 12/11/2022 [facility] Occupat ional Health - Occupational [...] Progress Notes * Natalee Brown RN - 06/23/2023 3:55 PM CDT Patient notified and verbalized understanding. Opportunity given for all questions to be answered, no further needs voiced at this time. LL-06/23/23 * Yenifer Ingram MA - 06/23/2023 8:12 AM CDT Called Izzy and ZAHEER for r/c. ----- Message from Sanjeev Webster DO sent at 06/23/2023 7:37 AM CDT ----- Increase warfarin to 6 mg daily and recheck next week as already scheduled next Thursday. documented in this encounter Plan of Treatment Upcoming Encounters Date Type Department Care Team (Late st Contact Info) Description 04/14/2024 2:00 PM TRAVEL OCCUPATIONAL THERAPIST Office Visit [facility] Multispecialty Care - [facility] 3 [facility], [address] [place] [phone] Julio Pulido MD 3 [place] [address] documented as of this encounter Goals Goal Patient Goal Type Associated Problems Recent Progress Patient-Stated? Author Health - patient able to perform ADLs independently General On track(2023 9:49 AM CDT) Dianne Corona RN Note: 12/17/23: Patient stated she is independent with ASL's. Establish Plan for Symptom Monitoring-CHF General On track(2023 11:36 AM TRAVEL OCCUPATIONAL THERAPIST) Dianne Corona RN Note: Patient will recognize [...] Symptom Monitoring-COPD General On track(2023 11:36 AM TRAVEL OCCUPATIONAL THERAPIST) Dianne Corona RN Note: Patient will recognize [...] Symptom Monitoring-DM General On track(2023 4:33 PM TRAVEL OCCUPATIONAL THERAPIST) Dianne Corona RN Note: Patient will manage [...] Symptom Monitoring-HTN General On track(2023 4:33 PM TRAVEL OCCUPATIONAL THERAPIST) No Dianne Johnson RN Note: Patient will [...] documented as of this encounter Care Teams Research Spec Relationship Specialty Start Date End Date Sanjeev Webster DO [address] [place] [address] PCP - General FAMILY PRACTICE 09/25/20 Dianne Johnson RN [address] [place] [address] Logistics Loss Prevention Manager (Ambulatory) REGISTERED NURSE 08/14/20 documented as of this encounter
--- OUTSIDE RECORDS SUMMARY | 2024-03-15 00:53 | XMS_ITS | Encounter Summary ---
Author Organization [facility] Address [facility]6 [facility] [place] [address] [place] [address] Care Team Providers Care Pace Analyst Name Role Phone Dianne Johnson RN Unavailable [phone] Sanjeev Webster DO Primary Care Provider + Reason for Visit * Reason Comments Sore Throat X3 days Encounter Details Date Type Department Care Team (Late st Contact Info) Description 06/22/2023 3:40 PM CDT Office Visit [facility] Family & Internal Medicine [facility] [address] [place] [address] Sanjeev Webster DO [address] [place] [address] Sore Throat (X3 days) Social History Tobacco Use Types Packs/Day Years [...] often do you attend chur ch or congregation services? More than 4 times [...] Questionnaire-2 Score 6 12/11/2022 [facility] - Occupational Stress Questionnaire Answer [...] Sign Reading Time Taken Comments Blood Pressure 110/72 06/22/2023 1:09 PM CDT Pulse 62 06/22/2023 1:09 PM CDT Temperature 36.7 ??C (98.1 ??F) 06/22/2023 1:09 PM CD T Respiratory Rate 18 06/22/2023 1:09 PM CDT Oxygen Saturation 98% 06/22/2023 1:09 PM CDT Inhaled Oxygen Concentration - - Weight 83.5 kg (184 lb) 06/22/2023 1:09 PM CDT Height 165.1 cm (5' 5 ) 06/22/2023 1:09 PM CDT Body Mass Index 30.62 06/22/2023 1:09 PM CDT documented in this encounter [...] encounter Progress Notes * Sanjeev Webster, - 06/22/2023 3:40 PM CDT Images from the original note were not included. GENERAL OFFICE VISIT Encounter Date: 06/22/2023 Chief Complaint: 78-year-old female presents for Sore Throat (X3 days) HPI: Patient states symptoms have been present for 3 days. Symptoms include sore throat. Pertinent negatives include Fevers, Chills, Myalgias, and Rash. Patient has no sick contacts. OTC medications triedinclude salt water gargles. No other symptoms. Pt has hyperthyroidism and hyperparathyroidism. Pt has seen endocrine recently, Dr. Mattson. Pt's methimazole was changed to 5 mg daily. She was started on Cincalet. A DEXA and parathyroid imaging were also ordered. Pt wished myself to manage her kidney disease unless needing to see nephrology per findings on above imaging. Pt needs her PT/INR drawn today. It has been subtherapeutic on recent checks. On last draw, we had her increase to 6 mg daily for 3 days and then return to 5 mg daily. Office Visit on 06/22/2023 Component Date Value Ref Range Status RAPID STREP TEST 06/22/2023 NEGATIVE NEGATIVE Final Internal Control: 06/22/2023 VALID VALID Final Allied Health/Nurse Visit on 06/22/2023 Component Date Value Ref Range Status INR WHOLE BLOOD 06/22/2023 1.60 Final Review of Systems Constitutional: Negative for chills and fever. HENT: See HPI Musculoskeletal: Negative for myalgias. Skin: Negative for rash. All other systems reviewed and are negative. Patient Active Problem List Diagnosis Abnormal stress test Chronic anticoagulation Coronary artery disease involving shoshone-bannock coronary artery of shoshone-bannock heart without angina pectoris Dyspnea on exertion H/O mechanical aortic valve replacement Hypertensive heart disease with congestive heart failure ([facility]) LBBB (left bundle branch block) Myopathy VAZQUEZ (obstructive sleep apnea) Paroxysmal atrial flutter ([facility]) Benign hypertension with CKD (chronic kidney disease) stage III ([facility]) Memory deficits Hearing deficit, bilateral History of cataract extraction, unspecified laterality Vitamin D deficiency Hypercalcemia Chronic frontal sinusitis Constipation, unspecified constipation type Chronic bilateral low back pain without sciatica Iron deficiency anemia, unspecified iron deficiency anemia type Disorder of skin of trunk Anemia Body mass index (BMI) 31.0-31.9, adult 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[facility]) Benign hypertension with stage 3b chronic kidney disease ([facility]) Cobalamin deficiency Compression fracture of thoracic vertebra ([facility]) Depression Diabetic polyneuropathy ([facility]) Disorder of rotator cuff Diverticular disease Dysphagia Elevated troponin Gastroesophageal reflux disease without esophagitis Hyperlipidemia, unspecified hyperlipidemia type Vascular dementia ([facility]) Unknown and unspecified causes of morbidity Syncope, unspecified syncope type Wrist joint pain Respiratory illness Requires lifelong warfarin therapy Hyperparathyroidism ([facility]) Presence of prosthetic heart valve Plantar fascial fibromatosis Peripheral neuropathy Parathyroid adenoma Polymyalgia rheumatica ([facility]) Osteoporosis Numbness Muscle cramps Closed stable burst fracture of sixth thoracic vertebra, initial encounter ([facility]) Chest pain Contusion of scalp Knee pain Localized, primary osteoarthritis Osteoarthritis of knee Traumatic closed displaced fracture of distal end of radius Shoulder joint pain Hyperlipidemia associated with type 2 diabetes mellitus ([facility]) PVD (peripheral vascular disease) ([facility]) Hematoma Anxiety Diastolic heart failure ([facility]) Internal hemorrhoids Leukoencephalopathy Major depression single episode, in partial remission ([facility]) Metacarpal bone fracture Mitral valve disorder Peripheral arterial occlusive disease ([facility]) Primary osteoarthritis involving multiple joints Vision loss COPD (chronic obstructive pulmonary disease) ([facility]) Diarrhea Drug-induced constipation H/O mechanical aortic valve replacement Age-related osteoporosis with current pathological fracture Care Management Physical deconditioning Chronic heart failure with preserved ejection fraction (HFpEF) ([facility]) Paroxysmal atrial fibrillation ([facility]) Hypertension associated with type 2 diabetes mellitus ([facility]) Encounter for prophylactic measures, unspecified Graves' disease Cirrhosis of liver without ascites, unspecified hepatic cirrhosis type ([facility]) Stage 3b chronic kidney disease ([facility]) OLIVE (acute kidney injury) ([facility]) Heart failure with mildly reduced ejection fraction (HFmrEF) ([facility]) Hyperthyroidism 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 Anxiety Atrial fibrillation with rapid ventricular response ([facility]) 08/22/2020 Atrial flutter ([facility]) Cataract Chronic anticoagulation due to mechanical heart valve Chronic pain Diabetes mellitus ([facility]) H/O mechanical aortic valve replacement [...] 10 min Stress: Stress Concern Present (08/26/2022) [facility] - Occupational Stress Questionnaire Feeling of Stress : To some extent Social Connections: Moderately Isolated (08/26/2022) Social Connection and Isolation Panel [NHANES] Frequency of Communication with Friends and Family: Three times a week Frequency of Social Gatherings with Friends and Family: Three times a week Attends Gnosticism Services: More than 4 times per year [...] (Generic) 06/05/2016, 09/05/2020 Tetanus/Diptheria 07/22/2014 Zoster (Zostavax) 50477 Unt/0.65Ml 12/25/2015 Current Outpatient Medications Medication Sig [...] MOUTH NIGHTLY NEEDED FOR SLEEP 15tablet 0 amoxicillin-clavulanate (AUGMENTIN) 875-125 MG tablet Take 1 tablet (875 mg total) by mouth 2 (two)times daily for 10 days. 20 tablet 0 Blood Glucose Monitoring Suppl (ONE TOUCH [...] by mouth once daily 30 tablet 0 furosemide (LASIX) 80 MG tablet Take 0.5 tablets (40 mg total) by mouth daily. (Patient taking differently: Alternate 20 mg and 40 mg of furosemide on alternating days.) 30 tablet 0 gabapentin (NEURONTIN) 300 MG [...] once daily 90 capsule 0 warfarin (COUMADIN) 5 MG tablet Take 1 [...] Take 1 tablet by mouth once daily furosemide (LASIX) 80 MG tablet Take 0.5 tablets (40 mg total) by mouth daily. (Patient taking differently: Alternate 20 mg and 40 mg of furosemide on alternating days.) gabapentin (NEURONTIN) 300 MG capsule take 1 [...] mg total) by mouth nightly at bedtime. TRULICITY 1.5 MG/0.5ML injection inject 1 syringe subcutaneously once a week venlafaxine XR (EFFEXOR-XR) 150 MG 24 hr capsule Take 1 capsule by mouth once daily warfarin (COUMADIN) 5 MG tablet Take 1 tablet (5 mg total) by mouth daily. No current facility-administered medications on file prior to visit. Review of patient's allergies indicates: Allergen Reactions Atorvastatin Leg Pain Leg pain/cramps. Resolved after stopping. Tape Contact Dermatitis Bacitracin Other (see comment) Benzalkonium Other (see comment) Gramicidin Other (see comment) Hydrocortisone Other (see comment) Neomycin Other (see comment) Polymyxin B Other (see comment) Rosuvastatin Leg Pain Cramping in legs Objective: Filed Vitals: 06/22/23 1309 BP: 110/72 Pulse: 62 Resp: 18 Temp: 98.1 ??F (36.7 ??C) TempSrc: Temporal SpO2: 98% Weight: 83.5 kg (184 lb) Height: 1.651 m (5' 5 ) Physical Exam Vitals and nursing note reviewed. HENT: Head: Normocephalic and atraumatic. Right Ear: External ear normal. Left Ear: External ear normal. Mouth/Throat: Mouth: Mucous membranes are moist. Pharynx: Oropharyngeal exudate and posterior oropharyngeal erythema present. Eyes: General: No scleral icterus. Conjunctiva/sclera: Conjunctivae normal. Pulmonary: Effort: Pulmonary effort is normal. Skin: General: Skin is warm and dry. Findings: No rash. Neurological: Mental Status: She is alert. Mental status is at baseline. Psychiatric: Mood and Affect: Mood and affect normal. Assessment & Plan: Radha was seen today for sore throat. Diagnoses and all orders for this visit: Pharyngitis, unspecified etiology - RAPID STREP A - amoxicillin-clavulanate (AUGMENTIN) 875-125 MG tablet; Take 1 tablet (875 mg total) by mouth 2 (two) times daily for 10 days. 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 Discussed conservative andexpected management. Call back if worsening or not improving as expected. Will obtain venous draw of PT/INR. Will continue current meds for hyperparathyroidism and hyperthyroidism and await testing from endocrine. F/u with regular appointments otherwise. Pt v/u. Sanjeev Webster DO documented in this encounter Plan of Treatment Upcoming Encounters Date Type Department Care Team (Late st Contact Info) Description 04/14/2024 2:00 PM RAILROAD PURCHASING AGENT Office Visit [facility] Multispecialty Care - [address] [place] [address] Julio Pulido MD [address] [place] [address] documented as of this encounter Goals Goal Patient Goal Type Associated Problems Recent Progress Patient-Stated? Author Health - patient able to perform ADLs independently General On track(2023 9:49 AM CDT) Dianne Corona, RN Note: 12/17/23: Patient stated she is independent with ASL's. Establish Plan for Symptom Monitoring-CHF General On track(2023 11:36 AM RAILROAD PURCHASING AGENT) Dianne Corona RN Note: Patient will recognize [...] Symptom Monitoring-COPD General On track(2023 11:36 AM RAILROAD PURCHASING AGENT) Dianne Corona RN Note: Patient will recognize [...] Symptom Monitoring-DM General On track(2023 4:33 PM RAILROAD PURCHASING AGENT) Dianne Corona RN Note: Patient will manage [...] Symptom Monitoring-HTN General On track(2023 4:33 PM RAILROAD PURCHASING AGENT) Dianne Corona RN Note: Patient will monitor [...] Associated Diagnosis Comments PROTHROMBIN TIME, VENOUS Routine 06/22/2023 1:07 PM CDT alf (current) use of anticoagulants COLLECTION VENOUS BLOOD VENIPUNCTURE Routine 06/22/2023 1:03 PM CDT 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 THERAPEUTIC RANGE (INR): ?VENOUS THROMBOSIS ? 2.0-3.0 ?PULMONARY EMBOLUS ? 2.0-3.0 ?? MECHANICAL PROSTHETIC VALVES ? 2.5-3.5 06/22/2023 1:07 PM CDT us Sanjeev Webster DO LABORATORY Final Re sult Performing Organization Address [facility] Co de Phone Number [facility] [address] [place] [address], [place] [phone] * RAPID STREP A (06/22/2023) Pathologist [facility] RAPID STREP TEST NEGATIVE NEGATIVE [facility] Internal Control: VALID VALID [facility] STRUCTURE OF ANTERIOR PORTION OF NECK / Unknown 06/22/2023 us Sanjeev Webster DO MICROBIOLOGY - GENERAL O RDERABLES Final Result Performing Organization Address [facility] de Phone Number [facility] [address] [place] [address], documented in this encounter Visit Diagnoses Diagnosis Pharyngitis, unspecified etiology- Primary Hyperparathyroidism ([facility]) Hyperparathyroidism, unspecified Hyperthyroidism Thyrotoxicosis without mention of goiter or other cause, without mention of thyrotoxic crisis or storm alf (current) use of anticoagulants Long-term (current) use of anticoagulants documented in this encounter Additional Health Concerns Assessment Noted Time PHQ-9 Depression Total Score: 13 023 3:56 PM CDT documented as of this encounter Care Teams Pace Analyst Relationship Specialty Start Date End Date Sanjeev Webster DO [address] [place] [address] PCP - General FAMILY PRACTICE 09/25/20 Dianne Johnson, RN [address] [place] [address] Chief Nurse Anesthetist (Ambulatory) REGISTERED NURSE 08/14/20 documented as of this encounter
--- OUTSIDE RECORDS SUMMARY | 2024-03-15 00:53 | XMS_ITS | Encounter Summary ---
Author Organization [facility] Address [facility]. [place], [place] [address] [place] [address] Care Team Providers Care Ophthalmic Nurse Name Role Phone Dianne Johnson RN Unavailable [phone] Sanjeev Webster DO Primary Care Provider + Reason for Visit * Reason Onset Date Comments Results 07/14/2023 Encounter Details Date Type Department Care Team (Late st Contact Info) Description 07/14/2023 Telephone [facility] Family & Internal Medicine [id number] [place] [address] Sanjeev Webster DO [facility] [place] [address] Results Social History Tobacco Use [...] Recorded Patient Health Questionnaire-2 Score 6 12/11/2022 [facility] of Occupat ional [...] Progress Notes * Yenifer Ingram MA - 07/14/2023 1:29 PM CDT LMOM on patient's number and a detailed message for Izzy (daughter in law) informed izzy to r/c if she has questions. Patient needs to schedule [place] for INR ----- Message from Sanjeev Webster DO sent at 07/13/2023 11:01 PM CDT ----- Continue 7 mg dosing and recheck in 1 week. documented in this encounter Plan of Treatment Upcoming Encounters Date Type Department Care Team (Late st Contact Info) Description 04/14/2024 2:00 PM HELP DESK AGENT Office Visit [facility] Multispecialty Care - [facility] [address] [facility], [address] [place] [address] Julio Pulido MD [address] [place] [address] documented as of this encounter Goals Goal Patient Goal Type Associated Problems Recent Progress Patient-Stated? Author Health - patient able to perform ADLs independently General On track(2023 9:49 AM CDT) Dianne Corona RN Note: 12/17/23: Patient stated she is independent with ASL's. Establish Plan for Symptom Monitoring-CHF General On track(2023 11:36 AM HELP DESK AGENT) Dianne Corona RN Note: Patient will [...] Symptom Monitoring-COPD General On track(2023 11:36 AM HELP DESK AGENT) Dianne Corona RN Note: Patient will [...] Symptom Monitoring-DM General On track(2023 4:33 PM HELP DESK AGENT) Dianne Corona RN Note: Patient will [...] Symptom Monitoring-HTN General On track(2023 4:33 PM HELP DESK AGENT) No Dianne Johnosn, RN Note: Patient will monitor B/P several [...] documented as of this encounter Care Teams Ophthalmic Nurse Relationship Specialty Start Date End Date Sanjeev Webster DO [address] [place] [address] PCP - General FAMILY PRACTICE 09/25/20 Dianne Johnson, RN [address] [place] [address] Technology Intern (Ambulatory) REGISTERED NURSE 08/14/20 documented as of this encounter
--- OUTSIDE RECORDS SUMMARY | 2024-03-15 00:53 | XMS_ITS | Encounter Summary ---
Author Organization [facility] Address [facility]6 [facility] [place] [place] [address] [place] [address] Care Team Providers Care Er Tech Name Role Phone Dianne Johnson RN Unavailable [phone] Sanjeev Webster DO Primary Care Provider + Encounter Details Date Type Department Care Team (Latest Contact Info) Description 06/26/2023 Scan HEALTH INFO SRVCS Scanned, Doc Med [...] often do you attend chur ch or mandaeism services? More than 4 times per year [...] Recorded Patient Health Questionnaire-2 Score 6 12/11/2022 [facility] of Occupat [...] st Contact Info) Description 04/14/2024 2:00 PM BELTING INSPECTOR Office Visit [facility] Multispecialty Care - [facility] 3 [facility], [address] [place] [address] Julio Pulido MD [address] [place] [address] documented as of this encounter Goals Goal Patient Goal Type Associated Problems Recent Progress Patient-Stated? Author Health - patient able to perform ADLs independently General On track(2023 9:49 AM CDT) Dianne Corona RN Note: 12/17/23: Patient stated she is independent with ASL's. Establish Plan for Symptom Monitoring-CHF General On track(2023 11:36 AM BELTING INSPECTOR) Dianne Corona RN Note: Patient will [...] Symptom Monitoring-COPD General On track(2023 11:36 AM BELTING INSPECTOR) Dianne Corona RN Note: Patient will [...] Symptom Monitoring-DM General On track(2023 4:33 PM BELTING INSPECTOR) Dianne Corona, RN Note: Patient will manage [...] Symptom Monitoring-HTN General On track(2023 4:33 PM BELTING INSPECTOR) Dianne Corona, RN Note: Patient will monitor [...] documented as of this encounter Care Teams Er Tech Relationship Specialty Start Date End Date Sanjeev Webster DO [address] [place] [address] PCP - General FAMILY PRACTICE 09/25/20 Dianne Johnson RN [address] [place] [address] Town Manager (Ambulatory) REGISTERED NURSE 6/8/21 documented as of this encounter
--- OUTSIDE RECORDS SUMMARY | 2024-03-15 00:53 | XMS_ITS | Encounter Summary ---
Author Organization [facility] Address [facility]6 [place] [address] [place] [address] Care Team Providers Care Professor Of Psychiatry Name Role Phone Dianne Johnson RN Unavailable [phone] Sanjeev Webster DO Primary Care Provider + Reason for Visit * Reason Comments Allied Health Visit INR Encounter Details Date Type Department Care Team (Latest Contact Info) Description 07/13/2023 1:20 PM CDT Allied Health/Nurse Visit [facility] Family & Internal Medicine [facility] [address] [place] [address] Sanjeev Webster DO [address] [place] [address] Allied Health Visit (INR) Social [...] often do you attend chur ch or anabaptism services? More than 4 times per year 08/26/2022 Do you belong to any clubs o r organizations such as congregation groups, unions, fraternal or athletic groups, or [...] Recorded Patient Health Questionnaire-2 Score 6 12/11/2022 [facility] Occupat ional Health - [...] Progress Notes * Natalee Brown RN - 07/13/2023 1:20 PM CDT Patient in today for INR check. Patient aware of results of 2.1. She was informed that if PCP has an recommendation or changes, this office will call her back. Opportunity given for all questions to be answered, no further needs voiced at this time. LL-07/13/23 documented in this encounter Plan of Treatment Upcoming Encounters Date Type Department Care Team (Late st Contact Info) Description 04/14/2024 2:00 PM STRATEGIC ANALYST Office Visit [facility] Medical Group Multispecialty Care - [facility] 3 [facility], [address] [place] [id number] Julio Pulido MD 3 [place] [address] documented as of this encounter Goals Goal Patient Goal Type Associated Problems Recent Progress Patient-Stated? Author Health - patient able to perform ADLs independently General On track(2023 9:49 AM CDT) No Dianne Johnson RN Note: 12/17/23: Patient stated she is independent with ASL's. Establish Plan for Symptom Monitoring-CHF General On track(2023 11:36 AM STRATEGIC ANALYST) Dianne Corona RN Note: Patient will [...] Symptom Monitoring-COPD General On track(2023 11:36 AM STRATEGIC ANALYST) Dianne Corona RN Note: Patient will [...] Symptom Monitoring-DM General On track(2023 4:33 PM STRATEGIC ANALYST) Dianne Corona RN Note: Patient will [...] Symptom Monitoring-HTN General On track(2023 4:33 PM STRATEGIC ANALYST) Dianne Corona RN Note: Patient will monitor [...] Date/Time Associated Diagnosis Comments COLLECT.CAPILLARY (FNGR,HEEL,EAR) Routine 07/13/2023 1:23 PM CDT Chronic anticoagulation PROTHROMBIN TIME, FINGERSTICK Routine 07/13/2023 Chronic anticoagulation documented in this encounter Results * PROTIME/INR, FINGERSTICK (07/13/2023) PROTIME WHOLE BLOOD 2.1 [facility] 07/13/2023 us Sanjeev Webster DO LABORATORY Final Re sult [facility] [address] [place] [address], documented in this encounter Visit Diagnoses Diagnosis Chronic anticoagulation- Primary Encounter for long-term (current) use of anticoagulants documented in this encounter Additional Health Concerns Assessment Noted Time PHQ-9 Depression Total Score: 13 023 3:56 PM CDT documented as of this encounter Care Teams Professor Of Psychiatry Relationship Specialty Start Date End Date Sanjeev Webster DO [address] [place] [address] PCP - General FAMILY PRACTICE 09/25/20 Dianne Johnson, RN [address] [place] [address] Cloth Reeler (Ambulatory) REGISTERED NURSE 08/14/20 documented as of this encounter
--- OUTSIDE RECORDS SUMMARY | 2024-03-15 00:53 | XMS_ITS | Encounter Summary ---
Author Organization [facility] Address [facility]6 [facility] [place] [address] [place] [address] Care Team Providers Care Window Treatment Installer Name Role Phone Dianne Johnson RN Unavailable [phone] Sanjeev Webster DO Primary Care Provider + Encounter Details Date Type Department Care Team (Late st Contact Info) Description 05/26/2023 1:40 PM CDT Laboratory Only [facility] Medical Group Family & Internal Medicine [address] [place] [address] Sanjeev Webster DO [address] [place] [address] Social History Tobacco Use Types [...] How often do you attend chur or restorationism services? More than 4 times [...] Recorded Patient Health Questionnaire-2 Score 6 12/11/2022 [facility] of Occupat [...] documented in this encounter Progress Notes * Meghan Salcido MA - 05/26/2023 1:40 PM CDT Pt is here for a PT/INR venous blood draw documented in this encounter Plan of Treatment Upcoming Encounters Date Type Department Care Team (Late st Contact Info) Description 04/14/2024 2:00 PM CHANNEL TURNER Office Visit [facility] Medical Group Multispecialty Care - [facility] [address] [facility], [address] [place] [address] Julio Pulido MD [address] [place] [address] documented as of this encounter Goals Goal Patient Goal Type Associated Problems Recent Progress Patient-Stated? Author Health - patient able to perform ADLs independently General On track(2023 9:49 AM CDT) Dianne Corona RN Note: 12/17/23: Patient stated she is independent with ASL's. Establish Plan for Symptom Monitoring-CHF General On track(2023 11:36 AM CHANNEL TURNER) Dianne Corona RN Note: Patient will recognize [...] Symptom Monitoring-COPD General On track(2023 11:36 AM CHANNEL TURNER) Dianne Corona RN Note: Patient will recognize [...] Symptom Monitoring-DM General On track(2023 4:33 PM CHANNEL TURNER) Dianne Corona RN Note: Patient will manage [...] Symptom Monitoring-HTN General On track(2023 4:33 PM CHANNEL TURNER) Dianne Corona RN Note: Patient will monitor [...] as of this encounter Care Teams Window Treatment Installer Relationship Specialty Start Date End Date Sanjeev Webster DO [address] [place] [address] PCP - General FAMILY PRACTICE 09/25/20 Dianne Johnson, RN [facility] [place] [address] Counter Former (Ambulatory) REGISTERED NURSE 08/14/20 documented as of this encounter
--- OUTSIDE RECORDS SUMMARY | 2024-03-15 00:53 | XMS_ITS | Encounter Summary ---
Author Organization [facility] Address [facility]6 [facility] [place] [address] [place] [address] Care Team Providers Care Lockstitch Binder Name Role Phone Dianne Johnson RN Unavailable [phone] Sanjeev Webster DO Primary Care Provider + Encounter Details Date Type Department Care Team (Latest Contact Info) Description 06/17/2023 Scan HEALTH INFO SRVCS Scanned, Doc Med [...] often do you attend chur ch or voodoo services? More than 4 times [...] Recorded Patient Health Questionnaire-2 Score 6 12/11/2022 [facility] of Occupat ional Health - [...] st Contact Info) Description 04/14/2024 2:00 PM SOURCE INSPECTOR Office Visit [facility] Medical Group Multispecialty Care - [facility] 3 [facility], [address] [place] [address] Julio Pulido MD 3 [place] [address] documented as of this encounter Goals Goal Patient Goal Type Associated Problems Recent Progress Patient-Stated? Author Health - patient able to perform ADLs independently General On track(2023 9:49 AM CDT) Dianne Corona RN Note: 12/17/23: Patient stated she is independent with ASL's. Establish Plan for Symptom Monitoring-CHF General On track(2023 11:36 AM SOURCE INSPECTOR) Dianne Corona RN Note: Patient will [...] Symptom Monitoring-COPD General On track(2023 11:36 AM SOURCE INSPECTOR) Dianne Corona RN Note: Patient will [...] Symptom Monitoring-DM General On track(2023 4:33 PM SOURCE INSPECTOR) Dianne Corona, RN Note: Patient will [...] Symptom Monitoring-HTN General On track(2023 4:33 PM SOURCE INSPECTOR) Dianne Corona, RN Note: Patient will [...] documented as of this encounter Care Teams Lockstitch Binder Relationship Specialty Start Date End Date Sanjeev Webster DO [address] [place] [address] PCP - General FAMILY PRACTICE 09/25/20 Dianne Johnson RN [address] [place] [address] Optical Lens Manufacturing Tech (Ambulatory) REGISTERED NURSE 6/8/21 documented as of this encounter
--- OUTSIDE RECORDS SUMMARY | 2024-03-15 00:53 | XMS_ITS | Encounter Summary ---
Author Organization [facility] Address [facility]6 [facility]. [place], [place] [address] [place] [address] Care Team Providers Care Import Coordination And Production Head Name Role Phone Dianne Johnson RN Unavailable [phone] Sanjeev Webster DO Primary Care Provider + Reason for Visit * Reason Onset Date Comments Other 06/30/2023 Encounter Details Date Type Department Care Team (Late st Contact Info) Description 06/30/2023 Telephone [facility] Medical Group Family & Internal Medicine [facility] [address] [place] [address] Sanjeev Webster DO [address] [place] [address] Other Social History Tobacco Use [...] Patient Health Questionnaire-2 Score 6 12/11/2022 [facility] of Occupat ional Health [...] Progress Notes * Yenifer Ingram MA - 06/30/2023 2:50 PM CDT Spoke with Izzy and informed her or results and recommendations. * Lashawn Vega - 06/30/2023 11:43 AM CDT Pt had INR checked yesterday. Izzy Juan daughter in law asking if the warfin and coumadin are the right dosage. Please give her a call. You can leave a message. documented in this encounter Plan of Treatment Upcoming Encounters Date Type Department Care Team (Late st Contact Info) Description 04/14/2024 2:00 PM SERVICE DESK SPECIALIST Office Visit [facility] Medical Group Multispecialty Care - [address], [address] [place] [address] Julio Pulido MD [address] [place] [address] documented as of this encounter Goals Goal Patient Goal Type Associated Problems Recent Progress Patient-Stated? Author Health - patient able to perform ADLs independently General On track(2023 9:49 AM CDT) Dianne Corona RN Note: 12/17/23: Patient stated she is independent with ASL's. Establish Plan for Symptom Monitoring-CHF General On track(2023 11:36 AM SERVICE DESK SPECIALIST) Dianne Corona RN Note: Patient will [...] Symptom Monitoring-COPD General On track(2023 11:36 AM SERVICE DESK SPECIALIST) Dianne Corona RN Note: Patient will [...] Symptom Monitoring-DM General On track(2023 4:33 PM SERVICE DESK SPECIALIST) Dianne Corona RN Note: Patient will [...] Symptom Monitoring-HTN General On track(2023 4:33 PM SERVICE DESK SPECIALIST) No Dianne Johnson, RN Note: Patient will [...] documented as of this encounter Care Teams Import Coordination And Production Head Relationship Specialty Start Date End Date Sanjeev Webster DO [address] [place] [address] PCP - General FAMILY PRACTICE 09/25/20 Dianne Johnson, RN [address] [place] [address] Veterinary Livestock Inspector (Ambulatory) REGISTERED NURSE 08/14/20 documented as of this encounter
--- OUTSIDE RECORDS SUMMARY | 2024-03-15 00:53 | XMS_ITS | Encounter Summary ---
Author Organization [facility] Address [facility]6 [facility] [place] [address] [place] [address] Care Team Providers Care Vp Scientific Affairs Name Role Phone Dianne Johnson RN Unavailable [phone] Sanjeev Webster DO Primary Care Provider + Reason for Visit * Reason Onset Date Comments Results 06/29/2023 Refill Request 06/29/2023 Encounter Details Date Type Department Care Team (Late st Contact Info) Description 06/29/2023 Telephone [facility] Medical Group Family & Internal Medicine [address] [place] [address] Sanjeev Webster DO [address] [place] [address] Results; Refill Request Social History Tobacco Use Types Packs/Day [...] Recorded Patient Health Questionnaire-2 Score 6 12/11/2022 [facility] of Occupat ionme Health - Occupational Stress Questionnaire Answer Date [...] Progress Notes * Yenifer Ingram MA - 06/29/2023 5:09 PM CDT Spoke with patient and informed her of results and scheduled NV on 07/06/2023 at 1PM. Patient requested a refill on pain medication. ----- Message from Sanjeev Webster DO sent at 06/29/2023 12:59 PM CDT ----- Improving; continue at current dose and recheck next week Thursday. documented in this encounter Plan of Treatment Upcoming Encounters Date Type Department Care Team (Late st Contact Info) Description 04/14/2024 2:00 PM PACKER FUSER Office Visit [facility] Medical Group Multispecialty Care - [facility] 3 [facility], [address] [place] [phone] Julio Pulido MD 3 [place] [address] documented as of this encounter Goals Goal Patient Goal Type Associated Problems Recent Progress Patient-Stated? Author Health - patient able to perform ADLs independently General On track(2023 9:49 AM CDT) Dianne Corona RN Note: 12/17/23: Patient stated she is independent with ASL's. Establish Plan for Symptom Monitoring-CHF General On track(2023 11:36 AM PACKER FUSER) Dianne Corona RN Note: Patient will recognize [...] Symptom Monitoring-COPD General On track(2023 11:36 AM PACKER FUSER) Dianne Corona RN Note: Patient will recognize [...] Symptom Monitoring-DM General On track(2023 4:33 PM PACKER FUSER) Dianne Corona RN Note: Patient will manage [...] Symptom Monitoring-HTN General On track(2023 4:33 PM PACKER FUSER) No Dianne Johnson RN Note: Patient will [...] documented as of this encounter Care Teams Vp Scientific Affairs Relationship Specialty Start Date End Date Sanjeev Webster DO [address] [place] [address] PCP - General FAMILY PRACTICE 09/25/20 Dianne Johnson RN [facility] [place] [address] Wire Twisting Machine Operator (Ambulatory) REGISTERED NURSE 08/14/20 documented as of this encounter
--- OUTSIDE RECORDS SUMMARY | 2024-03-15 00:53 | XMS_ITS | Encounter Summary ---
Author Organization [facility] Address [facility]6 [facility] [place] [place] [address] [place] [address] Care Team Providers Care Information Security Director Name Role Phone Dianne Johnson RN Unavailable [phone] Sanjeev Webster DO Primary Care Provider + Encounter Details Date Type Department Care Team (Latest Contact Info) Description 06/29/2023 Travel Social History Tobacco Use Types Packs/Day [...] st Contact Info) Description 04/14/2024 2:00 PM CAGE SHIFT MANAGER Office Visit [facility] Medical Group Multispecialty Care - [facility] 3 [facility], [address] [place] [address] Julio Pulido MD 3 [place] [address] documented as of this encounter Goals Goal Patient Goal Type Associated Problems Recent Progress Patient-Stated? Author Health - patient able to perform ADLs independently General On track(2023 9:49 AM CDT) Dianne Corona RN Note: 12/17/23: Patient stated she is independent with ASL's. Establish Plan for Symptom Monitoring-CHF General On track(2023 11:36 AM CAGE SHIFT MANAGER) Dianne Corona RN Note: Patient will [...] Symptom Monitoring-COPD General On track(2023 11:36 AM CAGE SHIFT MANAGER) Dianne Corona RN Note: Patient will [...] Symptom Monitoring-DM General On track(2023 4:33 PM CAGE SHIFT MANAGER) Dianne Corona RN Note: Patient will [...] Symptom Monitoring-HTN General On track(2023 4:33 PM CAGE SHIFT MANAGER) Dianne Corona, RN Note: Patient will [...] documented as of this encounter Care Teams Information Security Director Relationship Specialty Start Date End Date Sanjeev Webster DO [address] [place] [address] PCP - General FAMILY PRACTICE 09/25/20 Dianne Johnson, RN [address] [place] [address] Business Intelligence Developer (Ambulatory) REGISTERED NURSE 08/14/20 documented as of this encounter
--- OUTSIDE RECORDS SUMMARY | 2024-03-15 00:53 | XMS_ITS | Encounter Summary ---
Author Organization [facility] Address [facility]6 [facility] [place] [address] [place] [address] Care Team Providers Care Pulmonary Disease Specialist Name Role Phone Dianne Johnson RN Unavailable [phone] Sanjeev Webster DO Primary Care Provider + Encounter Details Date Type Department Care Team (Latest Contact Info) Description 07/06/2023 Travel Social History Tobacco Use Types Packs/Day [...] st Contact Info) Description 04/14/2024 2:00 PM INVASIVE CARDIOLOGIST Office Visit [facility] Medical Group Multispecialty Care - [facility] 3 [facility], [address] [place] [address] Julio Pulido MD 3 [place] [address] documented as of this encounter Goals Goal Patient Goal Type Associated Problems Recent Progress Patient-Stated? Author Health - patient able to perform ADLs independently General On track(2023 9:49 AM CDT) Dianne Corona RN Note: 12/17/23: Patient stated she is independent with ASL's. Establish Plan for Symptom Monitoring-CHF General On track(2023 11:36 AM INVASIVE CARDIOLOGIST) Dianne Corona RN Note: Patient will recognize [...] Symptom Monitoring-COPD General On track(2023 11:36 AM INVASIVE CARDIOLOGIST) Dianne Corona RN Note: Patient will recognize [...] Symptom Monitoring-DM General On track(2023 4:33 PM INVASIVE CARDIOLOGIST) Dianne Corona RN Note: Patient will manage [...] Symptom Monitoring-HTN General On track(2023 4:33 PM INVASIVE CARDIOLOGIST) Dianne Corona, RN Note: Patient will monitor [...] documented as of this encounter Care Teams Pulmonary Disease Specialist Relationship Specialty Start Date End Date Sanjeev Webster DO [address] [place] [address] PCP - General FAMILY PRACTICE 09/25/20 Dianne Johnson, RN [address] [place] [address] Art Studio Teacher (Ambulatory) REGISTERED NURSE 08/14/20 documented as of this encounter
--- OUTSIDE RECORDS SUMMARY | 2024-03-15 00:53 | XMS_ITS | Encounter Summary ---
Author Organization [facility] [place] [facility] Address [facility]6 [facility] [place] [address] [place] [address] Care Team Providers Care Intercell Connector Placer Name Role Phone Dianne Johnson RN Unavailable [phone] Sanjeev Webster DO Primary Care Provider + Encounter Details Date Type Department Care Team (Latest Contact Info) Description 06/11/2023 Travel Social History Tobacco Use Types Packs/Day [...] How often do you attend chur or pentecostalism services? More than 4 times [...] Recorded Patient Health Questionnaire-2 Score 6 12/11/2022 [facility] of Occupat ional [...] Contact Info) Description 04/14/2024 2:00 PM MACHINE CUTTER Office Visit [facility] Medical Group Multispecialty Care - [facility] 3 [facility], [address] [place] [address] Julio Pulido MD 3 [place] [address] documented as of this encounter Goals Goal Patient Goal Type Associated Problems Recent Progress Patient-Stated? Author Health - patient able to perform ADLs independently General On track(2023 9:49 AM CDT) Dianne Corona RN Note: 12/17/23: Patient stated she is independent with ASL's. Establish Plan for Symptom Monitoring-CHF General On track(2023 11:36 AM MACHINE CUTTER) Dianne Corona RN Note: Patient will [...] Monitoring-COPD General On track(2023 11:36 AM MACHINE CUTTER) Dianne Corona RN Note: Patient will [...] Monitoring-DM General On track(2023 4:33 PM MACHINE CUTTER) Dianne Corona RN Note: Patient will [...] Monitoring-HTN General On track(2023 4:33 PM MACHINE CUTTER) Dianne Corona, RN Note: Patient will [...] documented as of this encounter Care Teams Intercell Connector Placer Relationship Specialty Start Date End Date Sanjeev Webster DO [address] [place] [address] PCP - General FAMILY PRACTICE 09/25/20 Dianne Johnson, RN [address] [place] [address] Scallop Cutter Machine (Ambulatory) REGISTERED NURSE 08/14/20 documented as of this encounter
--- OUTSIDE RECORDS SUMMARY | 2024-03-15 00:53 | XMS_ITS | Encounter Summary ---
Author Organization [facility] Address [facility] [place] [address] [place] [address] Care Team Providers Care Edging Machine Catcher Name Role Phone Dianne Johnson RN Unavailable [phone] Sanjeev Webster DO Primary Care Provider + Reason for Visit * Reason Onset Date Comments Care Management 06/22/2023 Encounter Details Date Type Department Care Team (Late st Contact Info) Description 06/22/2023 Patient Outreach [facility] Medical Group Family & Internal Medicine [address] [address] Dianne Johnson, RN [address] [place] [address] Care Management Social History Tobacco [...] any clubs o r organizations such as christianity groups, unions, fraternal or athletic groups, or [...] Progress Notes * Dianne Johnson RN - 06/22/2023 10:42 AM CDT Chronic Care Management: Patient Status: Contacted patient to confirm if she is keeping two MRI appointments scheduled tomorrow at [facility] sincenahum was seen by today with a s/t. Patient stated the transmission in her car is goingout. Her son plans on looking at it but doesn't know when. She was seen today by and put on an antibiotic. She's requesting to reschedule both MRI's for a Thursday, Thursday or appointment around 11:00 am or later. 06/22/23: Contacted Sidra with centralizes scheduling department at [facility]. She rescheduled both MRI's for 08/11/23 one at 11:00 am and the other at Noon. Stated to arrive 15 minutes early. Special instructions: remove all body piercing and jewelry. 06/22/23: Contacted Fadia with the referral department to inform MRI's have been rescheduled for 08/11/23 and to obtain referral for 08/11/23 MRI's if needed. She stated [facility] team [facility] time. Fadia contacted Ely with referral department. Ely pulledMRI's out of closed status and will fall back on pre access one month prior to MRI's in August to pre-certify again. 06/22/23. Contacted patient regarding the above MRI's. She wrote the information down and appreciated CC rescheduling for her. Plan of Care: benefits coordinator will continue to follow up by phone, provide resources when needed, educate on disease management, and assess chronic conditions. Upcoming Visit Appointments: Future Appointments Date Time Provider Department Center 06/22/2023 1:[address] [facility] EM[facility]ENCY ROOM NURSE [facility] 06/23/2023 11:00 AM [facility] ([facility]) [facility] 06/23/2023 12:00 PM [facility] MRI ([facility]) [facility] 09/04/2023 1:00 PM Sania Gomez MD [facility] 04/14/2024 2:00 PM Julio Pulido MD [facility] Quality care gaps: Health Maintenance Topic Date Due Kidney Health Evaluation Never done Annual Medicare Wellness Visit Never done Lipid Panel 08/29/2022 ASCVD LDL 08/29/2022 Hemoglobin A1C 07/13/2023 Zoster Vaccines (3 of 3) 02/17/2024 (Originally 01/06/2023) RSV Immunization or 60+ Years (1 - 1-dose 60+ series) 02/17/2024 (Originally 2004) COVID-19 Vaccine ( - 2022- season) 2112 (Originally 11/07/2022) Diabetes: [...] of [place] heart without angina pectoris Dyspnea on exertion H/O mechanical aortic valve replacement Hypertensive heart disease with congestive heart failure ([facility] HHS/HCC) LBBB (left bundle branch block) Myopathy VAZQUEZ (obstructive sleep apnea) Paroxysmal atrial flutter ([facility] HHS/HCC) Benign hypertension with CKD (chronic kidney disease) stage III ([facility] HHS/HCC) Memory deficits Hearing deficit, bilateral History of cataract extraction, unspecified laterality Vitamin D deficiency Hypercalcemia Chronic frontal sinusitis Constipation, unspecified constipation type Chronic bilateral low back pain without sciatica Iron deficiency anemia, unspecified iron deficiency anemia type Disorder of skin of trunk Anemia Body mass index (BMI) 31.0-31.9, adult 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HHS/HCC) Benign hypertension with stage 3b chronic kidney disease ([facility] HHS/HCC) Cobalamin deficiency Compression fracture of thoracic vertebra ([facility]) Depression Diabetic polyneuropathy ([facility]) Disorder of rotator cuff Diverticular disease Dysphagia Elevated troponin Gastroesophageal reflux disease without esophagitis Hyperlipidemia, unspecified hyperlipidemia type Vascular dementia ([facility]) Unknown and unspecified causes of morbidity Syncope, unspecified syncope type Wrist joint pain Respiratory illness Requires lifelong warfarin therapy Secondary hyperparathyroidism ([facility]) Presence of prosthetic heart valve Plantar fascial fibromatosis Peripheral neuropathy Parathyroid adenoma Polymyalgia rheumatica ([facility]) Osteoporosis Numbness Muscle cramps Closed stable burst fracture of sixth thoracic vertebra, initial encounter ([facility]) Chest pain Contusion of scalp Knee pain Localized, primary osteoarthritis Osteoarthritis of knee Traumatic closed displaced fracture of distal end of radius Shoulder joint pain Hyperlipidemia associated with type 2 diabetes mellitus ([facility]) PVD (peripheral vascular disease) ([facility]) Hematoma Anxiety Diastolic heart failure ([facility]) Internal hemorrhoids Leukoencephalopathy Major depression single episode, in partial remission ([facility]) Metacarpal bone fracture Mitral valve disorder Peripheral arterial occlusive disease ([facility]) Primary osteoarthritis involving multiple joints Vision loss COPD (chronic obstructive pulmonary disease) ([facility]) Diarrhea Drug-induced constipation H/O mechanical aortic valve replacement Age-related osteoporosis with current pathological fracture Care Management Physical deconditioning Chronic heart failure with preserved ejection fraction (HFpEF) ([facility]) Paroxysmal atrial fibrillation ([facility]) Hypertension associated with type 2 diabetes mellitus ([facility]) Encounter for prophylactic measures, unspecified Graves' disease Cirrhosis of liver without ascites, unspecified hepatic cirrhosis type ([facility]) Stage 3b chronic kidney disease ([facility]) OLIVE (acute kidney injury) ([facility]) Heart failure with mildly reduced ejection fraction (HFmrEF) ([facility]) Medications: Current Outpatient Medications Medication Sig Dispense [...] D3) 25 MCG (1000 UT) Cap Take 1,000 Units by mouth daily. docusate sodium (COLACE) 100 [...] as instructed 100 each 3 methIMAzole (TAPAZOLE) 10 MG tablet Take 1 tablet by mouth once daily 90 tablet 1 metoprolol tartrate (LOPRESSOR) 25 MG tablet Take [...] st Contact Info) Description 04/14/2024 2:00 PM TARGETING ACQUISITION OFFICER Office Visit [facility] Medical Group Multispecialty Care - [facility] [address] [facility], [address] [place] [address] Julio Pulido MD [address] [place] [address] documented as of this encounter Goals Goal Patient Goal Type Associated Problems Recent Progress Patient-Stated? Author Health - patient able to perform ADLs independently General On track(2023 9:49 AM CDT) Dianne Corona RN Note: 12/17/23: Patient stated she is independent with ASL's. Establish Plan for Symptom Monitoring-CHF General On track(2023 11:36 AM TARGETING ACQUISITION OFFICER) Dianne Corona RN Note: Patient will recognize [...] Symptom Monitoring-COPD General On track(2023 11:36 AM TARGETING ACQUISITION OFFICER) Dianne Corona RN Note: Patient will recognize [...] Symptom Monitoring-DM General On track(2023 4:33 PM TARGETING ACQUISITION OFFICER) Dianne Corona RN Note: Patient will manage [...] Symptom Monitoring-HTN General On track(2023 4:33 PM TARGETING ACQUISITION OFFICER) Dianne Corona, DALE Note: Patient will monitor [...] documented as of this encounter Care Teams Edging Machine Catcher Relationship Specialty Start Date End Date Sanjeev Webster DO [address] [place] [id number] PCP - General FAMILY PRACTICE 09/25/20 Dianne Johnson, RN [address] [place], [place] [id number] Collections Attorney (Ambulatory) REGISTERED NURSE 08/14/20 documented as of this encounter
--- OUTSIDE RECORDS SUMMARY | 2024-03-15 00:53 | XMS_ITS | Encounter Summary ---
Author Organization [facility] Address [facility] [place] [address] [place] [address] Care Team Providers Care Residential Leasing Manager Name Role Phone Dianne Johnson RN Unavailable [phone] Sanjeev Webster DO Primary Care Provider + Encounter Details Date Type Department Care Team (Latest Contact Info) Description 07/09/2023 Scan HEALTH INFO SRVCS Scanned, Doc Med [...] often do you attend chur ch or rastafarian services? More than 4 times [...] Recorded Patient Health Questionnaire-2 Score 6 12/11/2022 [facility] - [...] Contact Info) Description 04/14/2024 2:00 PM SUPERVISOR GARAGE Office Visit [facility] Medical Group Multispecialty Care - [facility] [address] [facility], [address] [place] [address] Julio Pulido MD [address] [place] [address] documented as of this encounter Goals Goal Patient Goal Type Associated Problems Recent Progress Patient-Stated? Author Health - patient able to perform ADLs independently General On track(2023 9:49 AM CDT) Dianne Corona RN Note: 12/17/23: Patient stated she is independent with ASL's. Establish Plan for Symptom Monitoring-CHF General On track(2023 11:36 AM SUPERVISOR GARAGE) Dianne Corona RN Note: Patient will recognize [...] Monitoring-COPD General On track(2023 11:36 AM SUPERVISOR GARAGE) Dianne Corona RN Note: Patient will recognize [...] Monitoring-DM General On track(2023 4:33 PM SUPERVISOR GARAGE) Dianne Corona, RN Note: Patient will manage [...] Monitoring-HTN General On track(2023 4:33 PM SUPERVISOR GARAGE) Dianne Corona, RN Note: Patient will monitor [...] as of this encounter Care Teams Residential Leasing Manager Relationship Specialty Start Date End Date Sanjeev Webster DO [address] [place] [id number] PCP - General FAMILY PRACTICE 09/25/20 Dianne Johnson RN [address] [place] [address] Machine Quilt Stuffer (Ambulatory) REGISTERED NURSE 6/8/21 documented as of this encounter
--- OUTSIDE RECORDS SUMMARY | 2024-03-15 00:53 | XMS_ITS | Encounter Summary ---
Author Organization [facility] Address [facility] [facility] [place] [address] [place] [address] Care Team Providers Care Plastic Card Grader Cardroom Name Role Phone Dianne Johnson RN Unavailable [phone] Sanjeev Webster DO Primary Care Provider + Reason for Visit * Reason Onset Date Comments Medication Problem 06/17/2023 trulicity Encounter Details Date Type Department Care Team (Late st Contact Info) Description 06/17/2023 Telephone [facility] Medical Group Family & Internal Medicine [facility] [address] [place] [address] Sanjeev Webster DO [address] [place] [address] Medication Problem (trulicity) Social History Tobacco Use Types Packs/Day Years [...] often do you attend chur ch or methodist services? More than 4 times [...] Recorded Patient Health Questionnaire-2 Score 6 12/11/2022 [facility] [...] Progress Notes * Yenifer Wolf MA - 06/17/2023 2:11 PM CDTAddended by: YENIFER WOLF on: 06/17/2023 02:11 PM Modules accepted: Orders * Yenifer Wolf MA - 06/17/2023 1:40 PM CDT Faxed received from the [employer] and assistance form completed. Will be faxed back after provider signs. * Sanjeev Webster DO - 06/17/2023 11:[address] social work referral; could try Ozempic instead at 0.5 mg weekly. * Gloria Patel MA - 06/17/2023 11:12 AM CDT 06-17-23: Received call from [place] oliver Teller Manager with [employer]. Patient is having struggling with the cost of Trulicity and wondering if there is a alternative comparable with her Trulicitythat she can change to. Wondering about Ozempic, Rebelsus or Victoza. These medications have programs with patient assistance that would be no cost for the patient. Explained will send a message to Darin to review. Verbalized understanding charliriaz documented in this encounter Plan of Treatment Upcoming Encounters Date Type Department Care Team (Late st Contact Info) Description 04/14/2024 2:00 PM DRIVER GUARD Office Visit [facility] Medical Group Multispecialty Care - [facility] [address] [facility], [address] [place] [address] Julio Pulido MD [address] [place] [address] documented as of this encounter Goals Goal Patient Goal Type Associated Problems Recent Progress Patient-Stated? Author Health - patient able to perform ADLs independently General On track(2023 9:49 AM CDT) Dianne Corona RN Note: 12/17/23: Patient stated she is independent with ASL's. Establish Plan for Symptom Monitoring-CHF General On track(2023 11:36 AM DRIVER GUARD) Dianne Corona, RN Note: Patient will recognize [...] Symptom Monitoring-COPD General On track(2023 11:36 AM DRIVER GUARD) Dianne Corona, DALE Note: Patient will recognize [...] Symptom Monitoring-DM General On track(2023 4:33 PM DRIVER GUARD) Dianne Corona, RN Note: Patient will manage [...] Symptom Monitoring-HTN General On track(2023 4:33 PM DRIVER GUARD) Dianne Corona, RN Note: Patient will monitor [...] disease, without long-term current use of insulin ([facility])- Primary documented in this encounter Additional Health Concerns Assessment Noted Time PHQ-9 Depression Total Score: 13 023 3:56 PM CDT documented as of this encounter Care Teams Plastic Card Grader Cardroom Relationship Specialty Start Date End Date Sanjeev Webster DO [address] [place] [address] PCP - General FAMILY PRACTICE 09/25/20 Dianne Johnson, RN [address] [place] [address] Supervisor Transferring And Boxing (Ambulatory) REGISTERED NURSE 08/14/20 documented as of this encounter
--- OUTSIDE RECORDS SUMMARY | 2024-03-15 00:53 | XMS_ITS | Encounter Summary ---
Author Organization [facility] Address Critical access hospital6 [facility] [address] [place] [address] Care Team Providers Care Candle Pourer Name Role Phone Dianne Johnson RN Unavailable [phone] Sanjeev Webster DO Primary Care Provider + Encounter Details Date Type Department Care Team (Latest Contact Info) Description 07/13/2023 Travel Social History Tobacco Use Types Packs/Day [...] Recorded Patient Health Questionnaire-2 Score 6 12/11/2022 [facility] - [...] st Contact Info) Description 04/14/2024 2:00 PM ENGINEERING DEPARTMENT CHAIR Office Visit [facility] Medical Group Multispecialty Care - [facility] [address] [facility], [address] [place] [address] Julio Pulido MD [address] [place] [address] documented as of this encounter Goals Goal Patient Goal Type Associated Problems Recent Progress Patient-Stated? Author Health - patient able to perform ADLs independently General On track(2023 9:49 AM CDT) Dianne Corona RN Note: 12/17/23: Patient stated she is independent with ASL's. Establish Plan for Symptom Monitoring-CHF General On track(2023 11:36 AM ENGINEERING DEPARTMENT CHAIR) Dianne Corona RN Note: Patient [...] Symptom Monitoring-COPD General On track(2023 11:36 AM ENGINEERING DEPARTMENT CHAIR) Dianne Corona RN Note: Patient [...] Symptom Monitoring-DM General On track(2023 4:33 PM ENGINEERING DEPARTMENT CHAIR) Dianne Corona RN Note: Patient [...] Symptom Monitoring-HTN General On track(2023 4:33 PM ENGINEERING DEPARTMENT CHAIR) Dianne Corona, RN Note: Patient will monitor [...] documented as of this encounter Care Teams Candle Pourer Relationship Specialty Start Date End Date Sanjeev Webster DO [address] [place] [address] PCP - General FAMILY PRACTICE 09/25/20 Dianne Johnson, RN [address] [place] [address] Fermenter Champagne (Ambulatory) REGISTERED NURSE 08/14/20 documented as of this encounter
--- OUTSIDE RECORDS SUMMARY | 2024-03-15 00:53 | XMS_ITS | Encounter Summary ---
Author Organization [facility] Address [facility] [place] [address] [place] [address] Care Team Providers Care Ui Programmer Name Role Phone Casey Johnson RN Unavailable [phone] Sanjeev Webster DO Primary Care Provider + Reason for Visit * Reason Onset Date Comments Care Management 06/16/2023 Encounter Details Date Type Department Care Team (Late st Contact Info) Description 06/16/2023 Patient Outreach [facility] Family & Internal Medicine [address] [address] Casey Johnson, RN [address] [place] [address] Care Management Social History Tobacco [...] Patient Health Questionnaire-2 Score 6 12/11/2022 [facility] of Occupat ional Health - Occupational [...] Progress Notes * Casey Johnson RN - 06/16/2023 12:41 PM CDT Chronic Care Management: Patient concerns or urgent matters that need addressed: Patient requesting PT/INR results done yesterday to determine how much Warfarin to take tonight. Message sent to 's nursing team with high priority. Patient is aware someone will reach out to her and inform her [id number]; Izzy about Warfarin dose. Patient Status: Contacted patient and reminded her of MRI's scheduled at [facility] on 06/23/23. Encouraged to arrive around 10:45 am to check in. Patient stated she will drive herself to appointment. COPD: Patient denies any issues with COPD exacerbation at this time. Stated she is using albuterol inhaler prn. Last used two days ago. SOB is stable at this time. CHF: Patient stated she is not gaining 3 lbs over night, denies increased cough and doesn't have any swelling. Educated on CHF exacerbation s/s. Encouraged to reach out to CC at the onset of any changes. Patient stated she had a lady call her to discuss medications. Patient told her to contact office. Reviewed chart notes. On 06/11/23 Deb (rehabilitation case coordinator) with [facility] reached out to PCP office requesting medication list and list of allergies faxed to her. Patient stated Deb is supposed to call her and go over all of her medications with her. DM: Last A1C done 01/12/23. Results: 6.2. Patient is not checking BG at home. Denies any issues at present. Encouraged to call with any changes. Patient verbalizes understanding and thanked CC for calling her. Plan of Care: educational technology coordinator will continue to follow up by phone, provide resources when needed, educate on disease management, and assess chronic conditions. Patient Goals: Goals Addressed None Upcoming Visit Appointments: Future Appointments Date Time Provider Department Center 06/23/2023 11:00 AM [facility] 06/23/2023 12:00 PM [facility] 09/04/2023 1:00 PM Sania Gomez MD [facility] 04/14/2024 2:00 PM Julio Pulido MD [facility] Quality care gaps: Health Maintenance Topic Date [...] test Chronic anticoagulation Coronary artery disease involving kasaan coronary artery of kasaan heart without angina pectoris Dyspnea on exertion H/O mechanical aortic valve replacement Hypertensive heart disease with congestive heart failure ([facility]) LBBB (left bundle branch block) Myopathy VAZQUEZ (obstructive sleep apnea) Paroxysmal atrial flutter ([facility] HHS/HCC) Benign hypertension with CKD (chronic kidney disease) stage III ([facility]/HCC) Memory deficits Hearing deficit, bilateral History of cataract extraction, unspecified laterality Vitamin D deficiency Hypercalcemia Chronic frontal sinusitis Constipation, unspecified constipation type Chronic bilateral low back pain without sciatica Iron deficiency anemia, unspecified iron deficiency anemia type Disorder of skin of trunk Anemia Body mass index (BMI) 31.0-31.9, adult 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HHS/HCC) Benign hypertension with stage 3b chronic kidney disease ([facility]) Cobalamin deficiency Compression fracture of thoracic vertebra ([facility]) Depression Diabetic polyneuropathy ([facility]) Disorder of rotator cuff Diverticular disease Dysphagia Elevated troponin Gastroesophageal reflux disease without esophagitis Hyperlipidemia, unspecified hyperlipidemia type Vascular dementia ([facility]) Unknown and unspecified causes of morbidity Syncope, unspecified syncope type Wrist joint pain Respiratory illness Requires lifelong warfarin therapy Secondary hyperparathyroidism ([facility]) Presence of prosthetic heart valve Plantar fascial fibromatosis Peripheral neuropathy Parathyroid adenoma Polymyalgia rheumatica ([facility]) Osteoporosis Numbness Muscle cramps Closed stable burst fracture of sixth thoracic vertebra, initial encounter ([facility]) Chest pain Contusion of scalp Knee pain Localized, primary osteoarthritis Osteoarthritis of knee Traumatic closed displaced fracture of distal end of radius Shoulder joint pain Hyperlipidemia associated with type 2 diabetes mellitus ([facility]) PVD (peripheral vascular disease) ([facility] Hematoma Anxiety Diastolic heart failure ([facility]) Internal hemorrhoids Leukoencephalopathy Major depression single episode, in partial remission ([facility]) Metacarpal bone fracture Mitral valve disorder Peripheral arterial occlusive disease ([facility]) Primary osteoarthritis involving multiple joints Vision loss COPD (chronic obstructive pulmonary disease) ([facility]) Diarrhea Drug-induced constipation H/O mechanical aortic valve replacement Age-related osteoporosis with current pathological fracture Care Management Physical deconditioning Chronic heart failure with preserved ejection fraction (HFpEF) ([facility]) Paroxysmal atrial fibrillation ([facility]) Hypertension associated with type 2 diabetes mellitus ([facility]) Encounter for prophylactic measures, unspecified Graves' disease Cirrhosis of liver without ascites, unspecified hepatic cirrhosis type ([facility]) Stage 3b chronic kidney disease ([facility]) OLIVE (acute kidney injury) ([facility]) Heart failure with mildly reduced ejection fraction (HFmrEF) ([facility]) Medications: Current Outpatient Medications Medication Sig Dispense [...] with Patient Time spent with patient (minutes): 12 Time spent performing chart review (minutes): 9 Total time (minutes): 21 CASEY JOHNSON RN I reviewed the patient's status and education provided by CASEY JOHNSON RN. I agree with the findings and recommendations made. Cosigned by Sanjeev [place] DO at 06/16/2023 2:24 PM CDT documented in this encounter Plan of Treatment Upcoming Encounters Date Type Department Care Team (Late st Contact Info) Description 04/14/2024 2:00 PM FLORAL CLERK Office Visit [facility] Multispecialty Care - [facility] [address] [facility], [address] [place] [id number] Julio Pulido MD 3 [place] [address] documented as of this encounter Goals Goal Patient Goal Type Associated Problems Recent Progress Patient-Stated? Author Health - patient able to perform ADLs independently General On track(2023 9:49 AM CDT) Casey Corona RN Note: 12/17/23: Patient stated she is independent with ASL's. Establish Plan for Symptom Monitoring-CHF General On track(2023 11:36 AM FLORAL CLERK) Casey Corona RN Note: Patient will recognize [...] Symptom Monitoring-COPD General On track(2023 11:36 AM FLORAL CLERK) Casey Corona RN Note: Patient will recognize [...] Symptom Monitoring-DM General On track(2023 4:33 PM FLORAL CLERK) Casey Corona RN Note: Patient will manage [...] Symptom Monitoring-HTN General On track(2023 4:33 PM FLORAL CLERK) Casey Corona RN Note: Patient will monitor [...] Chronic obstructive pulmonary disease, unspecified COPD type ([facility])- Primary Chronic heart failure with preserved ejection fraction (HFpEF) ([facility]) Type 2 diabetes mellitus with stage 3b chronic kidney disease, without long-term current use of insulin ([facility]) documented in this encounter Additional Health Concerns Assessment Noted Time PHQ-9 Depression Total Score: 13 023 3:56 PM CDT documented as of this encounter Care Teams Ui Programmer Relationship Specialty Start Date End Date Sanjeev [place] DO [address] [place] [address] PCP - General FAMILY PRACTICE 09/25/20 Casey Johnson, RN [address] [place] [address] Cigar Packer (Ambulatory) REGISTERED NURSE 08/14/20 documented as of this encounter
--- OUTSIDE RECORDS SUMMARY | 2024-03-15 00:53 | XMS_ITS | Encounter Summary ---
Author Organization [facility] Address [facility] [place] [address] [place] [address] Care Team Providers Care Med Asst Name Role Phone Dianne Johnson RN Unavailable [phone] Sanjeev Webster DO Primary Care Provider + Reason for Visit * Reason Comments Allied Health Visit Pt is here for a PT/ INR check Encounter Details Date Type Department Care Team (Latest Contact Info) Description 06/15/2023 2:00 PM CDT Allied Health/Nurse Visit [facility] Family & Internal Medicine [address] [address] Sanjeev Webster DO [facility] [place] [address] Allied Health Visit (Pt is here for a PT/INR check) Social History Tobacco Use Types Packs/Day Years [...] How often do you attend chur or jehovah's witness services? More than 4 times per year [...] Recorded Patient Health Questionnaire-2 Score 6 12/11/2022 [facility] [place] of Occupat ional Health - Occupational Stress [...] Progress Notes * Meghan Salcido MA - 06/15/2023 2:00 PM CDT Pt is here for a PT/INR check * Yenifer Ingram MA - 06/15/2023 2:00 PM CDT Patient presents for walk in INR. The patient was at 1.9. Per Last check: Patient will restart medication at 5 mg daily and recheck on Thursday. Venous draw completed. Please advise. documented in this encounter Plan of Treatment Upcoming Encounters Date Type Department Care Team (Late st Contact Info) Description 04/14/2024 2:00 PM HARDBOARD SUPERVISOR Office Visit [facility] Multispecialty Care - [facility] [address] [facility], [address] [place] [phone] Julio Pulido MD [address] [place], [place] [phone] documented as of this encounter Goals Goal Patient Goal Type Associated Problems Recent Progress Patient-Stated? Author Health - patient able to perform ADLs independently General On track(2023 9:49 AM CDT) No Dianne Johnson RN Note: 12/17/23: Patient stated she is independent with ASL's. Establish Plan for Symptom Monitoring-CHF General On track(2023 11:36 AM HARDBOARD SUPERVISOR) Dianne Corona RN Note: Patient will [...] Symptom Monitoring-COPD General On track(2023 11:36 AM HARDBOARD SUPERVISOR) Dianne Corona RN Note: Patient will [...] Symptom Monitoring-DM General On track(2023 4:33 PM HARDBOARD SUPERVISOR) Dianne Corona RN Note: Patient will [...] Symptom Monitoring-HTN General On track(2023 4:33 PM HARDBOARD SUPERVISOR) Dianne Corona RN Note: Patient will [...] Date/Time Associated Diagnosis Comments COLLECT.CAPILLARY (FNGR,HEEL,EAR) Routine 06/15/2023 2:16 PM CDT senior living (current) use of anticoagulants PROTHROMBIN TIME, VENOUS Routine 06/15/2023 2:14 PM CDT rodent exterminator (current) use of anticoagulants COLLECTION VENOUS BLOOD VENIPUNCTURE Routine 06/15/2023 2:08 PM CDT senior living (current) use of anticoagulants PROTHROMBIN TIME, FINGERSTICK Routine 06/15/2023 senior living (current) use of anticoagulants documented in this encounter Results * (ABNORMAL) PROTIME/INR, VENOUS (06/15/2023 2:14 PM CDT) [facility] PROTIME 16.4(H) 9.3 - 11.6 SEC 06/15/2023 7:47 PM CDT [facility] [place] INR 1.6(H) 0.9 - 1.1 06/15/2023 7:47 PM CDT [facility] [place] Comment: TREATMENT OR PROPHYLAXIS AGAINST: ?? THERAPEUTIC RANGE (INR): ?VENOUS THROMBOSIS ? 2.0-3.0 ?PULMONARY EMBOLUS ? 2.0-3.0 ?? MECHANICAL PROSTHETIC VALVES ? 2.5-3.5 06/15/2023 2:14 PM CDT us Sanjeev Webster DO LABORATORY Final Re sult Performing Organization Address City/[facility] Co de Phone Number [facility] [address] [facility] [place] [address], [place] [phone] * PROTIME/INR, FINGERSTICK (06/15/2023) PROTIME WHOLE BLOOD 1.9 [facility] 06/15/2023 us Sanjeev Webster DO LABORATORY Final Re sult Performing Organization Address [facility] Co de Phone Number [facility] [address] [place] [address], documented in this encounter Visit Diagnoses Diagnosis senior living (current) use of anticoagulants- Primary Long-term (current) use of anticoagulants documented in this encounter Additional Health Concerns Assessment Noted Time PHQ-9 Depression Total Score: 13 023 3:56 PM CDT documented as of this encounter Care Teams Med Asst Relationship Specialty Start Date End Date Sanjeev [place] DO [address] [place] [address] PCP - General FAMILY PRACTICE 09/25/20 Dianne Johnson, RN [address] [place] [address] Licensed Tax Consultant (Ambulatory) REGISTERED NURSE 08/14/20 documented as of this encounter
--- OUTSIDE RECORDS SUMMARY | 2024-03-15 00:53 | XMS_ITS | Encounter Summary ---
Author Organization [facility] Address [facility] [place], [place] [address] [place] [address] Care Team Providers Care Prestidigitator Name Role Phone Dianne Johnson RN Unavailable [phone] Sanjeev Webster DO Primary Care Provider + Reason for Visit * Reason Onset Date Comments Anticoagulation 06/16/2023 Encounter Details Date Type Department Care Team (Late st Contact Info) Description 06/16/2023 Telephone [facility] Family & Internal Medicine [address] [place] [address] Sanjeev Webster DO [facility] [place] [address] Anticoagulation Social History Tobacco Use [...] How often do you attend chur or quaker services? More than 4 times [...] Recorded Patient Health Questionnaire-2 Score 6 12/11/2022 [facility] of Occupat ional Health - [...] Progress Notes * Latha Ring MA - 06/16/2023 4:16 PM CDT Patient informed and v/u of information. Izzy informed and v/u of directions. * Latha Ring MA - 06/16/2023 4:13 PM CDT Images from the original note were not included. DO Edward Santamaria Zach Nurse Did pt actually start taking warfarin? Pt's family manages her medications. If she is taking, take 6 mg for 3 days and then return to 5 mg daily. Recheck next Thursday. * Dianne Johnson RN - 06/16/2023 12:54 PM CDT Patient is requesting PT/INR results from yesterday. Please contact patient and call her [id number]; Izzy to inform if any Warfarin changes. Thank you. documented in this encounter Plan of Treatment Upcoming Encounters Date Type Department Care Team (Late st Contact Info) Description 04/14/2024 2:00 PM UPKEEP WORKER Office Visit [facility] Multispecialty Care - [address], [address] [place] [address] Julio Pulido MD 3 [place] [address] documented as of this encounter Goals Goal Patient Goal Type Associated Problems Recent Progress Patient-Stated? Author Health - patient able to perform ADLs independently General On track(2023 9:49 AM CDT) Dianne Coroan RN Note: 12/17/23: Patient stated she is independent with ASL's. Establish Plan for Symptom Monitoring-CHF General On track(2023 11:36 AM UPKEEP WORKER) Dianne Corona RN Note: Patient will [...] Symptom Monitoring-COPD General On track(2023 11:36 AM UPKEEP WORKER) Dianne Corona RN Note: Patient will [...] Symptom Monitoring-DM General On track(2023 4:33 PM UPKEEP WORKER) Dianne Corona RN Note: Patient will [...] Symptom Monitoring-HTN General On track(2023 4:33 PM UPKEEP WORKER) Dianne Corona RN Note: Patient will monitor [...] documented as of this encounter Care Teams Prestidigitator Relationship Specialty Start Date End Date Sanjeev Webster DO [address] [place] [address] PCP - General FAMILY PRACTICE 09/25/20 Dianne Johnson, RN [address] [place] [address] Business Analyst Manager (Ambulatory) REGISTERED NURSE 08/14/20 documented as of this encounter
--- OUTSIDE RECORDS SUMMARY | 2024-03-15 00:54 | XMS_ITS | Encounter Summary ---
Author Organization [facility] Address Critical access hospital6 [facility]. [place], [place] [address] [place] [address] Care Team Providers Care Telemetry Technician Name Role Phone Dianne Johnson RN Unavailable [phone] Sanjeev Webster DO Primary Care Provider + Reason for Visit * Reason Onset Date Comments Error 05/13/2023 Encounter Details Date Type Department Care Team (Late st Contact Info) Description 05/13/2023 Telephone [facility] Family & Internal Medicine [address] [place] [address] Sanjeev Webster DO [address] [place] [address] Error Social History Tobacco Use Types Packs/Day Years [...] any clubs o r organizations such as gnosticism groups, unions, fraternal or athletic groups, or [...] Health Questionnaire-2 Score 6 12/11/2022 [facility] of [...] st Contact Info) Description 04/14/2024 2:00 PM QUANTITATIVE RESEARCHER Office Visit [facility] Multispecialty Care - [facility] [address] [facility], [address] [place] [phone] Julio Pulido MD 3 [place] [address] documented as of this encounter Goals Goal Patient Goal Type Associated Problems Recent Progress Patient-Stated? Author Health - patient able to perform ADLs independently General On track(2023 9:49 AM CDT) Dianne Corona RN Note: 12/17/23: Patient stated she is independent with ASL's. Establish Plan for Symptom Monitoring-CHF General On track(2023 11:36 AM QUANTITATIVE RESEARCHER) Dianne Corona RN Note: Patient will recognize [...] Symptom Monitoring-COPD General On track(2023 11:36 AM QUANTITATIVE RESEARCHER) Dianne Corona RN Note: Patient will recognize [...] Symptom Monitoring-DM General On track(2023 4:33 PM QUANTITATIVE RESEARCHER) Dianne Corona RN Note: Patient will manage [...] Symptom Monitoring-HTN General On track(2023 4:33 PM QUANTITATIVE RESEARCHER) Dianne Corona RN Note: Patient will monitor [...] documented as of this encounter Care Teams Telemetry Technician Relationship Specialty Start Date End Date Sanjeev Webster DO [address] [place] [address] PCP - General FAMILY PRACTICE 09/25/20 Dianne Johnson, RN [address] [place] [address] Agency Trainer (Ambulatory) REGISTERED NURSE 08/14/20 documented as of this encounter
--- OUTSIDE RECORDS SUMMARY | 2024-03-15 00:54 | XMS_ITS | Encounter Summary ---
Author Organization [facility] Address [facility]. [place], [place] [address] [place] [address] Care Team Providers Care Core Sucker Name Role Phone Dianne Johnson RN Unavailable [phone] Sanjeev Webster DO Primary Care Provider + Reason for Visit * Reason Onset Date Comments Referral 05/13/2023 Encounter Details Date Type Department Care Team (Late st Contact Info) Description 05/13/2023 Telephone [facility] Group Family & Internal Medicine [address] [place] [address] Sanjeev Webster DO [address] [place] [address] Referral Social History Tobacco Use [...] Recorded Patient Health Questionnaire-2 Score 6 12/11/2022 [facility] of Occupat [...] Progress Notes * Yenifer Ingram MA - 05/13/2023 10:11 AM CST Patient's Endo sent a 2nd request for a nephrology referral to Dr. Vail. Dr. Webster advised he is ok with managing CKD. He advised reaching out to the patient and seeing if the prefer a referral or having PCP manage. The patient is ok with PCP managing. PRODUCTION FIELD SUPERVISOR documented in this encounter Plan of Treatment Upcoming Encounters Date Type Department Care Team (Late st Contact Info) Description 04/14/2024 2:00 PM SEED PRODUCTION FIELD SUPERVISOR Office Visit [facility] Group Multispecialty Care - [facility] [address] [facility], [address] [place] [phone] Julio Pulido MD 3 [place] [address] documented as of this encounter Goals Goal Patient Goal Type Associated Problems Recent Progress Patient-Stated? Author Health - patient able to perform ADLs independently General On track(2023 9:49 AM CDT) No Dianne Johnson RN Note: 12/17/23: Patient stated she is independent with ASL's. Establish Plan for Symptom Monitoring-CHF General On track(2023 11:36 AM SEED PRODUCTION FIELD SUPERVISOR) Dianne Corona RN Note: Patient will [...] Symptom Monitoring-COPD General On track(2023 11:36 AM SEED PRODUCTION FIELD SUPERVISOR) Dianne Corona RN Note: Patient will [...] Symptom Monitoring-DM General On track(2023 4:33 PM SEED PRODUCTION FIELD SUPERVISOR) Dianne Corona RN Note: Patient will [...] Symptom Monitoring-HTN General On track(2023 4:33 PM SEED PRODUCTION FIELD SUPERVISOR) Dianne Corona RN Note: Patient will [...] documented as of this encounter Care Teams Core Sucker Relationship Specialty Start Date End Date Sanjeev Webster DO [address] [place] [address] PCP - General FAMILY PRACTICE 09/25/20 Dianne Johnson, RN [address] [place] [address] Diamond Sizer (Ambulatory) REGISTERED NURSE 08/14/20 documented as of this encounter
--- OUTSIDE RECORDS SUMMARY | 2024-03-15 00:54 | XMS_ITS | Encounter Summary ---
Author Organization [facility] Address [facility] [place] [address] [place] [address] Care Team Providers Care Operations Inspector Name Role Phone Dianne Johnson RN Unavailable [phone] Sanjeev Webster DO Primary Care Provider + Encounter Details Date Type Department Care Team (Latest Contact Info) Description 05/07/2023 Travel Social History Tobacco Use Types Packs/Day [...] Recorded Patient Health Questionnaire-2 Score 6 12/11/2022 [facility] - Occupational [...] st Contact Info) Description 04/14/2024 2:00 PM CENTRIFUGAL EXTRACTOR OPERATOR Office Visit [facility] Multispecialty Care - [facility] [address] [facility], [address] [place] [address] Julio Pulido MD [address] [place] [address] documented as of this encounter Goals Goal Patient Goal Type Associated Problems Recent Progress Patient-Stated? Author Health - patient able to perform ADLs independently General On track(2023 9:49 AM CDT) Dianne Corona RN Note: 12/17/23: Patient stated she is independent with ASL's. Establish Plan for Symptom Monitoring-CHF General On track(2023 11:36 AM CENTRIFUGAL EXTRACTOR OPERATOR) Dianne Corona RN Note: Patient will [...] Symptom Monitoring-COPD General On track(2023 11:36 AM CENTRIFUGAL EXTRACTOR OPERATOR) Dianne Corona RN Note: Patient will [...] Symptom Monitoring-DM General On track(2023 4:33 PM CENTRIFUGAL EXTRACTOR OPERATOR) Dianne Corona RN Note: Patient will [...] Symptom Monitoring-HTN General On track(2023 4:33 PM CENTRIFUGAL EXTRACTOR OPERATOR) Dianne Corona, RN Note: Patient will [...] as of this encounter Care Teams Operations Inspector Relationship Specialty Start Date End Date Sanjeev Webster DO [address] [place] [id number] PCP - General FAMILY PRACTICE 09/25/20 Dianne Johnson, RN [address] [place] [address] Drain Tile Machine Operator (Ambulatory) REGISTERED NURSE 08/14/20 documented as of this encounter
--- OUTSIDE RECORDS SUMMARY | 2024-03-15 00:54 | XMS_ITS | Encounter Summary ---
Author Organization [facility] Address [facility] [place] [address] [place] [address] Care Team Providers Care Strategic Account Executive Name Role Phone Casey Johnson RN Unavailable [phone] Sanjeev Webster DO Primary Care Provider + Reason for Visit * Reason Onset Date Comments Care Management 05/11/2023 Encounter Details Date Type Department Care Team (Late st Contact Info) Description 05/11/2023 Patient Outreach [facility] Family & Internal Medicine [address] [address] Casey Johnson, RN [address] [place] [address] Care Management Social History Tobacco [...] Progress Notes * Casey Johnson RN - 05/11/2023 4:37 PM CST Chronic Care Management: Patient concerns or urgent matters that need addressed: None identified during phone call. Patient Status: Contacted patient to remind of MRA scheduled tomorrow at [facility]. Patient stated she is aware. Stated someone called her and told her to arrive at 3:00 PM. Stating she is getting MRA done and another MRIsame day tomorrow. Reviewed appointment information in [facility] and this does not reflect what patient is saying. Informed patient that CC will reach out to Central scheduling at [facility] to find out. 05/11/23: Contacted Rachael at central scheduling at [facility]. She stated patient is scheduled for a MRA tomorrow and MRI's on 06/23/23. Stated she is unaware if someone told her she will have two MRI's tomorrow. 05/11/23: Contacted patient about the above. Stated she will see how many MRI 's she gets done tomorrow. Stated she can drive to [place] and go to [facility] but she does not like to drive to [facility]. Her sister takes her to [facility] but her sister gets nervous driving and she doesn't like to take her either. Informed patient she has 12 round trips through her insurance company she can use per year. When she has MRI done on 06/23/23 she can set up a ride with [employer]. Patient stated she was unaware. Denies any issues with COPD or CHF exacerbations at this time. She gets her BP checked at each visit and she denies any episodes of hypoglycemia. CC will continue to follow. Patient appreciates CC calling her today. Plan of Care: quality improvement coordinator will continue to follow up by [...] Future Appointments Date Time Provider Department Center 05/12/2023 4:00 PM [facility]LEX MRI ([facility]) [facility] 06/23/2023 11:00 AM ALEX MRI ([facility]) [facility] 06/23/2023 12:00 PM [facility] MRI ([facility] 09/04/2023 1:00 PM Sania Gomez [facility] 04/14/2024 2:00 PM Julio Pulido MD [facility] Quality care gaps: Health Maintenance Topic Date Due Kidney Health Evaluation Never done Annual Medicare Wellness Visit Never done Lipid Panel 08/29/2022 ASCVD LDL 08/29/2022 Zoster Vaccines (3 of 3) 02/17/2024 (Originally 01/06/2023) RSV Immunization or 60+ Years (1 - 1-dose 60+ series) 02/17/2024 (Originally 2004) COVID-19 Vaccine ( - 2022- season) 2112 (Originally 11/07/2022) Hemoglobin A1C 07/13/2023 Diabetes: Retinopathy Eye Exam 04/21/2024 DTaP, Tdap and Td Vaccines (4 - Td or Tdap) 09/05/2030 DEXA SCAN (GENERAL) Completed Influenza Adult Completed Pneumococcal Vaccine: 65+ Years Completed Hepatitis C Completed Meningococcal Vaccine Aged Out RSV Immunizations Under 20 Months Aged Out Problem List: Patient Active Problem List Diagnosis Abnormal stress test Chronic anticoagulation Coronary artery disease involving tribal coronary artery of tribal heart without angina pectoris Dyspnea on exertion H/O mechanical aortic valve replacement Hypertensive heart disease with congestive heart failure (HHS/HCC) ([facility]) LBBB (left bundle branch block) Myopathy VAZQUEZ (obstructive sleep apnea) Paroxysmal atrial flutter ([facility]/HCC) ([facility]/HCC) Benign hypertension with CKD (chronic kidney disease) stage III ([facility]) Memory deficits Hearing deficit, bilateral History of cataract extraction, unspecified laterality Vitamin D deficiency Hypercalcemia Chronic frontal sinusitis Constipation, unspecified constipation type Chronic bilateral low back pain without sciatica Iron deficiency anemia, unspecified iron deficiency anemia type Disorder of skin of trunk Anemia Body mass index (BMI) 31.0-31.9, adult 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[facility]/HCC) Benign hypertension with stage 3b chronic kidney disease ([facility]/HCC) Cobalamin deficiency Compression fracture of thoracic vertebra ([facility]/HCC) ([facility] Depression Diabetic polyneuropathy ([facility]) ([facility]) Disorder of rotator cuff Diverticular disease Dysphagia Elevated troponin Gastroesophageal reflux disease without esophagitis Hyperlipidemia, unspecified hyperlipidemia type Vascular dementia ([facility]) Unknown and unspecified causes of morbidity Syncope, unspecified syncope type Wrist joint pain Respiratory illness Requires lifelong warfarin therapy Secondary hyperparathyroidism ([facility]) ([facility]) Presence of prosthetic heart valve Plantar fascial fibromatosis Peripheral neuropathy Parathyroid adenoma Polymyalgia rheumatica ([facility]) ([facility]) Osteoporosis Numbness Muscle cramps Closed stable burst fracture of sixth thoracic vertebra, initial encounter ([facility]) ([facility]) Chest pain Contusion of scalp Knee pain Localized, primary osteoarthritis Osteoarthritis of knee Traumatic closed displaced fracture of distal end of radius Shoulder joint pain Hyperlipidemia associated with type 2 diabetes mellitus ([facility]) ([facility]) PVD (peripheral vascular disease) ([facility]) Hematoma Anxiety Diastolic heart failure ([facility]) ([facility]) Internal hemorrhoids Leukoencephalopathy Major depression single episode, in partial remission ([facility] [place]) Metacarpal bone fracture Mitral valve disorder Peripheral arterial occlusive disease ([facility]) Primary osteoarthritis involving multiple joints Vision loss COPD (chronic obstructive pulmonary disease) ([facility]) ([facility]) Diarrhea Drug-induced constipation H/O mechanical aortic valve replacement Age-related osteoporosis with current pathological fracture Care Management Physical deconditioning Chronic heart failure with preserved ejection fraction (HFpEF) ([facility]) ([facility]) Paroxysmal atrial fibrillation ([facility]) ([facility]) Hypertension associated with type 2 diabetes mellitus ([facility]) ([facility]) Encounter for prophylactic measures, unspecified Graves' disease Cirrhosis of liver without ascites, unspecified hepatic cirrhosis type ([facility]) ([facility]) Stage 3b chronic kidney disease ([facility]) OLIVE (acute kidney injury) ([facility]) Heart failure with mildly reduced ejection fraction (HFmrEF) ([facility]) ([facility]) Medications: Current Outpatient Medications Medication Sig Dispense [...] mg total) by mouth daily. 30 tablet 3 furosemide (LASIX) 80 MG tablet Take 0.5 [...] times daily. 90 tablet 3 omeprazole (PRILOSEC) 20 MG capsule Take 1 capsule by mouth [...] once daily 90 capsule 0 warfarin (COUMADIN) 1 MG tablet Take 2 tablets (2 mg total) by mouth see administration instructions. Thursday , Thursday and Thursday with 6mg to total 8 mg and 1 tablet daily Thursday through with 6mg tablet for a total of 7mg 60 tablet 2 warfarin (COUMADIN) 5 MG tablet Take 1 tablet by mouth once daily 90 tablet 0 warfarin (COUMADIN) 6 MG tablet Take 6mg Thursday, Thursday and Thursday with 2mg to total 8 mg and 1 tablet daily Thursday through with 1mg tablet for a total of 7mg 30 tablet 2 No current facility-administered medications for this visit. Chronic Care Management- Time Spent with Patient Time spent with patient (minutes): 19 (Comment: Time spent with patient and central scheduling.) Time spent performing chart review (minutes): 7 Total time (minutes): 26 CASEY JOHNSON RN I reviewed the patient's status and education provided by CASEY JOHNSON RN. I agree with the findings and recommendations made. Cosigned by Sanjeev Webster DO at 05/12/2023 4:01 PM PRODUCTION DISPATCHER UCTION DISPATCHER UCTION DISPATCHER documented in this encounter Plan of Treatment Upcoming Encounters Date Type Department Care Team (Late st Contact Info) Description 04/14/2024 2:00 PM PRODUCTION DISPATCHER Office Visit [facility] Multispecialty Care - [address], [address] [place] [id number] Julio Pulido MD [address] [place] [address] documented as of this encounter Goals Goal Patient Goal Type Associated Problems Recent Progress Patient-Stated? Author Health - patient able to perform ADLs independently General On track(2023 9:49 AM CDT) Casey Corona RN Note: 12/17/23: Patient stated she is independent with ASL's. Establish Plan for Symptom Monitoring-CHF General On track(2023 11:36 AM PRODUCTION DISPATCHER) Casey Coorna RN Note: Patient will recognize symptoms of [...] Symptom Monitoring-COPD General On track(2023 11:36 AM PRODUCTION DISPATCHER) Casey Corona RN Note: Patient will recognize [...] Symptom Monitoring-DM General On track(2023 4:33 PM PRODUCTION DISPATCHER) Casey Corona RN Note: Patient will manage [...] Symptom Monitoring-HTN General On track(2023 4:33 PM PRODUCTION DISPATCHER) Casey Corona, RN Note: Patient will monitor B/P [...] disease, without long-term current use of insulin ([facility])- Primary Chronic heart failure with preserved ejection fraction (HFpEF) ([facility]) Chronic obstructive pulmonary disease, unspecified COPD type ([facility]) documented in this encounter Additional Health Concerns Assessment Noted Time PHQ-9 Depression Total Score: 13 023 3:56 PM CDT documented as of this encounter Care Teams Strategic Account Executive Relationship Specialty Start Date End Date Sanjeev Webster DO [address] [place] [address] PCP - General FAMILY PRACTICE 09/25/20 Casey Johnson, RN [address] [place] [address] Wholesaler (Ambulatory) REGISTERED NURSE 08/14/20 documented as of this encounter
--- OUTSIDE RECORDS SUMMARY | 2024-03-15 00:54 | XMS_ITS | Encounter Summary ---
Author Organization [facility] Address [facility]. [place], [place] [address] [place] [address] Care Team Providers Care Director Of Physical Education Name Role Phone Dianne Johnson RN Unavailable [phone] Sanjeev Webster DO Primary Care Provider + Reason for Visit * Reason Comments Anticoagulation Encounter Details Date Type Department Care Team (Late st Contact Info) Description 05/26/2023 1:20 PM CDT Allied Health/Nurse Visit [facility] Family & Internal Medicine [place] [id number] [place] [address] Sanjeev Webster DO [facility] [place] [address] Anticoagulation Social History Tobacco Use [...] Progress Notes * Yenifer Ingram MA - 05/26/2023 1:20 PM CDT Patient presents for PT/INR. The patient needs venous draw as her results where 3.8. The patient was having pain behind her left knee. The provider was informed and advised to send out prednisone taper. documented in this encounter Plan of Treatment Upcoming Encounters Date Type Department Care Team (Late st Contact Info) Description 04/14/2024 2:00 PM GEOPHYSICAL OBSERVER Office Visit [facility] Multispecialty Care - [facility] [address] [facility], [address] [place] [phone] Julio Pulido MD 3 [place] [address] documented as of this encounter Goals Goal Patient Goal Type Associated Problems Recent Progress Patient-Stated? Author Health - patient able to perform ADLs independently General On track(2023 9:49 AM CDT) No Dianne Johnson RN Note: 12/17/23: Patient stated she is independent with ASL's. Establish Plan for Symptom Monitoring-CHF General On track(2023 11:36 AM GEOPHYSICAL OBSERVER) Dianne Corona RN Note: Patient will recognize [...] Symptom Monitoring-COPD General On track(2023 11:36 AM GEOPHYSICAL OBSERVER) Dianne Corona RN Note: Patient will recognize [...] Symptom Monitoring-DM General On track(2023 4:33 PM GEOPHYSICAL OBSERVER) Dianne Corona RN Note: Patient will manage [...] Symptom Monitoring-HTN General On track(2023 4:33 PM GEOPHYSICAL OBSERVER) Dianne Corona RN Note: Patient will monitor [...] Associated Diagnosis Comments PROTHROMBIN TIME, VENOUS Routine 05/26/2023 2:03 PM CDT Chronic anticoagulation COLLECTION VENOUS BLOOD VENIPUNCTURE Routine 05/26/2023 2:02 PM CDT Chronic anticoagulation COLLECT.CAPILLARY (FNGR,HEEL,EAR) Routine 05/26/2023 1:41 PM CDT H/O mechanical aortic valve replacement Chronic anticoagulation PROTHROMBIN TIME, FINGERSTICK Routine 05/26/2023 H/O mechanical aortic valve replacement Chronic anticoagulation documented in this encounter Results * (ABNORMAL) PROTIME/INR, VENOUS (05/26/2023 2:03 PM CDT) PROTIME 31.5(H) 9.3 - 11.6 SEC 05/26/2023 7:18 PM CDT [facility] 3.3(H) 0.9 - 1.1 05/26/2023 7:18 PM CDT [facility] Comment: TREATMENT OR PROPHYLAXIS AGAINST: ?? THERAPEUTIC RANGE (INR): ?VENOUS THROMBOSIS ? 2.0-3.0 ?PULMONARY EMBOLUS ? 2.0-3.0 ?? MECHANICAL PROSTHETIC VALVES ? 2.5-3.5 05/26/2023 2:03 PM CDT us Sanjeev Webster DO LABORATORY Final Re sult -[facility] [address] [facility] [place] [address], * PROTIME/INR, FINGERSTICK (05/26/2023) PROTIME WHOLE BLOOD 3.8 [facility] 05/26/2023 Sanjeev Webster DO LABORATORY Final Re sult [facility] [address] [place] [address], documented in this encounter Visit Diagnoses Diagnosis H/O mechanical aortic valve replacement- Primary Heart valve replaced by other means Chronic anticoagulation Encounter for long-term (current) use of anticoagulants Knee pain Pain in joint, lower leg documented in this encounter Additional Health Concerns Assessment Noted Time PHQ-9 Depression Total Score: 13 023 3:56 PM CDT documented as of this encounter Care Teams Director Of Physical Education Relationship Specialty Start Date End Date Sanjeev Webster DO [facility] [place] [address] PCP - General FAMILY PRACTICE 09/25/20 Dianne Johnson, RN [address] [place] [address] Front End Ui Developer (Ambulatory) REGISTERED NURSE 08/14/20 documented as of this encounter
--- OUTSIDE RECORDS SUMMARY | 2024-03-15 00:54 | XMS_ITS | Encounter Summary ---
Author Organization [facility] Address [facility] [place] [address] [place] [address] Care Team Providers Care Instructor Ballroom Dancing Name Role Phone Dianne Johnson RN Unavailable [phone] Sanjeev Webster DO Primary Care Provider + Encounter Details Date Type Department Care Team (Late st Contact Info) Description 2023 Scan [facility] [address] Scanned, Doc Pccl Social History Tobacco Use [...] Recorded Patient Health Questionnaire-2 Score 1 [facility] Answer Date [...] st Contact Info) Description 04/14/2024 2:00 PM DIESEL TRUCK TECHNICIAN Office Visit [facility] Multispecialty Care - [facility] [address] [facility], [address] [place] [address] Julio Pulido MD [address] [place] [address] documented as of this encounter Goals Goal Patient Goal Type Associated Problems Recent Progress Patient-Stated? Author Health - patient able to perform ADLs independently General On track(2023 9:49 AM CDT) Dianne Corona RN Note: 12/17/23: Patient stated she is independent with ASL's. Establish Plan for Symptom Monitoring-CHF General On track(2023 11:36 AM DIESEL TRUCK TECHNICIAN) Dianne Corona RN Note: Patient will [...] Symptom Monitoring-COPD General On track(2023 11:36 AM DIESEL TRUCK TECHNICIAN) Dianne Corona RN Note: Patient will [...] Symptom Monitoring-DM General On track(2023 4:33 PM DIESEL TRUCK TECHNICIAN) Dianne Corona RN Note: Patient will [...] Symptom Monitoring-HTN General On track(2023 4:33 PM DIESEL TRUCK TECHNICIAN) Dianne Corona RN Note: Patient will [...] documented as of this encounter Care Teams Instructor Ballroom Dancing Relationship Specialty Start Date End Date Sanjeev Webster DO [address] [place] [address] PCP - General FAMILY PRACTICE 09/25/20 Dianne Johnson RN [address] [place] [address] Foxer (Ambulatory) REGISTERED NURSE 08/14/20 documented as of this encounter
--- OUTSIDE RECORDS SUMMARY | 2024-03-15 00:54 | XMS_ITS | Encounter Summary ---
Author Organization [facility] Address [facility] [place] [address] [place] [address] Care Team Providers Care Advertising Sales Assistant Name Role Phone Casey Johnson RN Unavailable [phone] Sanjeev Webster DO Primary Care Provider + Reason for Referral * Consultation (Routine) - Denied Specialty Diagnoses / Procedures Referred By Ian malagon Referred To Contact GASFITTER Diagnoses Care Management Procedures OFFICE/OUTPATIENT NEW LOW MDM 30-44 MINUTES OFFICE/OUTPT VISIT,NEW,LEVL IV OFFICE/OUTPT VISIT,NEW,LEVL V OFFICE/OUTPT VISIT,EST,LEVL III OFFICE/OUTPT VISIT,EST,LEVL IV OFFICE/OUTPT VISIT,EST,LEVL V Sanjeev Webster DO [address] [place] [address] Phone: tel: fax: Bebe Dan, SOLAR DEVELOPMENT ENGINEER [address] [place] [address] Phone: tel: fax: Referral ID Status Reason Start Date Expiration Date V isits Requested Visits Authorized [id number] Denied Specialty Services 05/19/2023 06/17/2024 1 0 Reason for Visit * Reason Onset Date Comments Care Management 05/19/2023 Encounter Details Date Type Department Care Team (Late st Contact Info) Description 05/19/2023 Patient Outreach [facility] Medical Group Family & Internal Medicine [address] [phone] Casey Johnson, RN [address] [place] [address] Care Management Social History Tobacco Use Types [...] Recorded Patient Health Questionnaire-2 Score 6 12/11/2022 [facility] [...] Progress Notes * Casey Johnson RN - 05/19/2023 4:49 PM CDT Chronic Care Management: Patient Status: Contacted patient today. Stated she has a s/t, each ache and dry deep cough. Informed patient that sent Augmentin to [facility] pharmacy in [place] at 3:10 PM. Patient plans on picking up antibiotic now. Informed patient it may take a 3 days of antibiotic before she notices any improvement. If s/s persist or worsen she needs to be seen. Patient stated it's her birthday on Thursdayand she wants to get well by then. Wished patient an early happy birthday. Patient stated she has a life alert that goes around her neck. A lady contacted her on Thursday and told her she will be calling back sometime today to talk to her about her life alert. Patient stated one time a while ago someone called her about the life alert and wanted to come over. Patient statedthe person wanted to see her check book etc. She did not allow that to happen. Informed patient to be aware of scams. Encouraged patient to contact the life alert company she purchased the device from and let them know about the call. Patient stated the phone number is on the bottom of the monitor and will reach out to them. CC sent a referral to Bebe BHATTI) patient has further questions about the life alert. Patient is aware. Patient currently gets BP checked when she is seen by provider. Denies any issues at present. Encouraged to call at the onset of any changes. Patient verbalizes understanding. Plan of Care: document control coordinator will continue to follow up [...] Time Provider Department Center 06/23/2023 11:00 AM [facility] 06/23/2023 12:00 PM [facility] 09/04/2023 1:00 PM Sania Gomez MD [facility] 04/14/2024 2:00 PM Julio Pulido MD [facility] Quality care gaps: Health Maintenance Topic Date Due Kidney Health Evaluation Never done Annual Medicare Wellness Visit Never done Lipid Panel 08/29/2022 ASCVD LDL 08/29/2022 Zoster Vaccines (3 of 3) 02/17/2024 (Originally 01/06/2023) RSV Immunization or 60+ Years (1 - 1-dose 60+ series) 02/17/2024 (Originally 2004) COVID-19 Vaccine (2022- season) 2112 (Originally 11/07/2022) Hemoglobin A1C 07/13/2023 [...] test Chronic anticoagulation Coronary artery disease involving akhi[place] coronary artery of akhi[place] heart without angina pectoris Dyspnea on exertion H/O mechanical aortic valve replacement Hypertensive heart disease with congestive heart failure ([facility]/HCC) LBBB (left bundle branch block) Myopathy VAZQUEZ (obstructive sleep apnea) Paroxysmal atrial flutter ([facility] HHS/HCC) Benign hypertension with CKD (chronic kidney disease) stage III ([facility]CC) Memory deficits Hearing deficit, bilateral History of cataract extraction, unspecified laterality Vitamin D deficiency Hypercalcemia Chronic frontal sinusitis Constipation, unspecified constipation type Chronic bilateral low back pain without sciatica Iron deficiency anemia, unspecified iron deficiency anemia type Disorder of skin of trunk Anemia Body mass index (BMI) 31.0-31.9, adult 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[facility]/HCC) Benign hypertension with stage 3b chronic kidney disease ([facility]) Cobalamin deficiency Compression fracture of thoracic vertebra ([facility]) Depression Diabetic polyneuropathy ([facility]) Disorder of rotator cuff Diverticular disease Dysphagia Elevated troponin Gastroesophageal reflux disease without esophagitis Hyperlipidemia, unspecified hyperlipidemia type Vascular dementia ([facility]) Unknown and unspecified causes of morbidity Syncope, unspecified syncope type Wrist joint pain Respiratory illness Requires lifelong warfarin therapy Secondary hyperparathyroidism ([facility]) Presence of prosthetic heart valve Plantar fascial fibromatosis Peripheral neuropathy Parathyroid adenoma Polymyalgia rheumatica ([facility]) Osteoporosis Numbness Muscle cramps Closed stable burst fracture of sixth thoracic vertebra, initial encounter ([facility]) ([facility]) Chest pain Contusion of scalp Knee pain Localized, primary osteoarthritis Osteoarthritis of knee Traumatic closed displaced fracture of distal end of radius Shoulder joint pain Hyperlipidemia associated with type 2 diabetes mellitus ([facility]) ([facility]) PVD (peripheral vascular disease) ([facility]) Hematoma Anxiety Diastolic heart failure ([facility]) Internal hemorrhoids Leukoencephalopathy Major depression single episode, in partial remission ([facility]) Metacarpal bone fracture Mitral valve disorder Peripheral arterial occlusive disease ([facility]) Primary osteoarthritis involving multiple joints Vision loss COPD (chronic obstructive pulmonary disease) ([facility]) Diarrhea Drug-induced constipation H/O mechanical aortic valve replacement Age-related osteoporosis with current pathological fracture Care Management Physical deconditioning Chronic heart failure with preserved ejection fraction (HFpEF) ([facility]) ([facility]) Paroxysmal atrial fibrillation ([facility]) Hypertension associated with type 2 diabetes mellitus ([facility]) ([facility]) Encounter for prophylactic measures, unspecified Graves' disease Cirrhosis of liver without ascites, unspecified hepatic cirrhosis type ([facility]) ([facility]) Stage 3b chronic kidney disease ([facility]) OLIVE (acute kidney injury) ([facility]) Heart failure with mildly reduced ejection fraction (HFmrEF) ([facility]) ([facility]) Medications: Current Outpatient Medications Medication Sig Dispense [...] with Patient Time spent with patient (minutes): 9 Time spent performing chart review (minutes): 6 Total time (minutes): 15 CASEY JOHNSON RN I reviewed the patient's status and education provided by CASEY JOHNSON RN. I agree with the findings and recommendations made. Cosigned by Sanjeev Webster DO at 05/20/2023 10:45 AM CDT documented in this encounter Plan of Treatment Upcoming Encounters Date Type Department Care Team (Late st Contact Info) Description 04/14/2024 2:00 PM SAMPLE BUILDER Office Visit [facility] Medical Group Multispecialty Care - [facility] [address] [facility], [address] [place] [phone] Julio Pulido MD [address] [place] [address] Scheduled Referrals Name Type Priority Associated Diagnoses Orde r Schedule Ambulatory referral to Social Work (Bebe Dan) Referral Routine Care Management Ordered: 05/19/2023 documented as of this encounter Goals Goal Patient Goal Type Associated Problems Recent Progress Patient-Stated? Author Health - patient able to perform ADLs independently General On track(2023 9:49 AM CDT) Casey Corona RN Note: 12/17/23: Patient stated she is independent with ASL's. Establish Plan for Symptom Monitoring-CHF General On track(2023 11:36 AM SAMPLE BUILDER) Casey Corona RN Note: Patient will recognize [...] Symptom Monitoring-COPD General On track(2023 11:36 AM SAMPLE BUILDER) Casey Coorna RN Note: Patient will recognize [...] Symptom Monitoring-DM General On track(2023 4:33 PM SAMPLE BUILDER) Casey Corona RN Note: Patient will manage [...] Symptom Monitoring-HTN General On track(2023 4:33 PM SAMPLE BUILDER) No Casey Johnson, RN Note: Patient will monitor B/P several times per week , record readings and report to physician or CC if B/P consistently >130/80 Take your medications as prescribed. Follow up with your provider as scheduled. Take your blood pressure at least several times a week if able. documented as of this encounter Visit Diagnoses Diagnosis Care Management- Primary Chronic heart failure with preserved ejection fraction (HFpEF) ([facility]) Chronic obstructive pulmonary disease, unspecified COPD type ([facility]) documented in this encounter Additional Health Concerns Assessment Noted Time PHQ-9 Depression Total Score: 13 023 3:56 PM CDT documented as of this encounter Care Teams Advertising Sales Assistant Relationship Specialty Start Date End Date Sanjeev Webster DO [address] [place] [id number] PCP - General FAMILY PRACTICE 09/25/20 Casey Johnson, RN [address] [place] [address] Windmill Mechanic (Ambulatory) REGISTERED NURSE 08/14/20 documented as of this encounter
--- OUTSIDE RECORDS SUMMARY | 2024-03-15 00:54 | XMS_ITS | Encounter Summary ---
Author Organization [facility] Address [facility] [facility] [place] [address] [place] [address] Care Team Providers Care Country Manager Name Role Phone Casey Johnson RN Unavailable Sanjeev Webster DO Primary Care Provider + Reason for Visit * Reason Onset Date Comments Care Management 05/25/2023 Encounter Details Date Type Department Care Team (Late st Contact Info) Description 05/25/2023 Patient Outreach [facility] Medical Group Family & Internal Medicine [address] [phone] Casey Johnson, RN [address] [place] [address] Care Management Social History Tobacco [...] Recorded Patient Health Questionnaire-2 Score 6 12/11/2022 [facility] [...] Progress Notes * Casey Johnson RN - 05/25/2023 12:28 PM CDT Chronic Care Management: Patient concerns or urgent matters that need addressed: None identified during phone call. Patient Status: Patient stated she is much better since taking Augmentin. She denies any s/s of bleeding since taking Augmentin with Warfarin. She is unsure when she needs to repeat PT/INR. Message sent to 's nursing team. Patient denies any issues with COPD or CHF exacerbation s/s at this time. Stated she's been eating cookies and candy since it was her birthday on Thursday. Reports gaining some weight from eating sweets. Denies any issues with swelling or worsening sob. Attempted to talk to patient about upcoming MRI's on 06/23/23. Patient not at home and phone movable bulkhead installer not good. CC will call back later. Patient agreeable. Contacted patient and confirmed both MRI's scheduled on 06/23/23 at 11:00 am and 12:00 PM arrive 15 minutes early at [facility]. Patient stated she has transportation. replied about repeating PT/INR at her earliest convenience. Patient stated she will get it done tomorrow at 1:30 PM. Informed 's nursing team and encouraged to contact patient if this is not a good time. Plan of Care: medical billing coordinator will continue to follow up by [...] Time Provider Department Center 06/23/2023 11:00 AM [facility] 06/23/2023 12:00 PM [facility] 09/04/2023 1:00 PM Sania Gomez MD [facility] 04/14/2024 2:00 PM MD NALINI Gutierrez [facility] Quality care gaps: Health Maintenance Topic Date [...] test Chronic anticoagulation Coronary artery disease involving tetlin coronary artery of tetlin heart without angina pectoris Dyspnea on exertion H/O mechanical aortic valve replacement Hypertensive heart disease with congestive heart failure ([facility]) LBBB (left bundle branch block) Myopathy VAZQUEZ (obstructive sleep apnea) Paroxysmal atrial flutter ([facility]) Benign hypertension with CKD (chronic kidney disease) stage III ([facility]) Memory deficits Hearing deficit, bilateral History of cataract extraction, unspecified laterality Vitamin D deficiency Hypercalcemia Chronic frontal sinusitis Constipation, unspecified constipation type Chronic bilateral low back pain without sciatica Iron deficiency anemia, unspecified iron deficiency anemia type Disorder of skin of trunk Anemia Body mass index (BMI) 31.0-31.9, adult 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[facility]) Benign hypertension with stage 3b chronic kidney disease ([facility]) Cobalamin deficiency Compression fracture of thoracic vertebra ([facility]) Depression Diabetic polyneuropathy ([facility]) Disorder of rotator cuff Diverticular disease Dysphagia Elevated troponin Gastroesophageal reflux disease without esophagitis Hyperlipidemia, unspecified hyperlipidemia type Vascular dementia ([facility]) Unknown and unspecified causes of morbidity Syncope, unspecified syncope type Wrist joint pain Respiratory illness Requires lifelong warfarin therapy Secondary hyperparathyroidism ([facility]) Presence of prosthetic heart valve Plantar fascial fibromatosis Peripheral neuropathy Parathyroid adenoma Polymyalgia rheumatica ([facility]) Osteoporosis Numbness Muscle cramps Closed stable burst fracture of sixth thoracic vertebra, initial encounter ([facility]) ([facility]) Chest pain Contusion of scalp Knee pain Localized, primary osteoarthritis Osteoarthritis of knee Traumatic closed displaced fracture of distal end of radius Shoulder joint pain Hyperlipidemia associated with type 2 diabetes mellitus ([facility]) ([facility]) PVD (peripheral vascular disease) ([facility]) Hematoma Anxiety Diastolic heart failure ([facility]) Internal hemorrhoids Leukoencephalopathy Major depression single episode, in partial remission ([facility]) Metacarpal bone fracture Mitral valve disorder Peripheral arterial occlusive disease ([facility]) Primary osteoarthritis involving multiple joints Vision loss COPD (chronic obstructive pulmonary disease) ([facility]) Diarrhea Drug-induced constipation H/O mechanical aortic valve replacement Age-related osteoporosis with current pathological fracture Care Management Physical deconditioning Chronic heart failure with preserved ejection fraction (HFpEF) ([facility]) ([facility]) Paroxysmal atrial fibrillation ([facility]) Hypertension associated with type 2 diabetes mellitus ([facility]) ([facility]) Encounter for prophylactic measures, unspecified Graves' disease Cirrhosis of liver without ascites, unspecified hepatic cirrhosis type ([facility]) ([facility]) Stage 3b chronic kidney disease ([facility] OLIVE (acute kidney injury) ([facility]) Heart failure with mildly reduced ejection fraction (HFmrEF) ([facility]) ([facility]) Medications: Current Outpatient Medications Medication [...] 9 Time spent performing chart review (minutes): 5 Total time (minutes): 14 CASEY JOHNSON RN I reviewed the patient's status and education provided by CASEY JOHNSON RN. I agree with the findings and recommendations made. Cosigned by Sanjeev eWbster DO at 05/26/2023 8:27 AM CDT documented in this encounter Plan of Treatment Upcoming Encounters Date Type Department Care Team (Late st Contact Info) Description 04/14/2024 2:00 PM CRM DEVELOPER Office Visit [facility] Medical Group Multispecialty Care - [facility] [address] [facility], [address] [place] [address] Julio Pulido MD [address] [place] [address] documented as of this encounter Goals Goal Patient Goal Type Associated Problems Recent Progress Patient-Stated? Author Health - patient able to perform ADLs independently General On track(2023 9:49 AM CDT) Casey Corona RN Note: 12/17/23: Patient stated she is independent with ASL's. Establish Plan for Symptom Monitoring-CHF General On track(2023 11:36 AM CRM DEVELOPER) Casey Corona RN Note: Patient will recognize [...] Symptom Monitoring-COPD General On track(2023 11:36 AM CRM DEVELOPER) Casey Corona RN Note: Patient will recognize [...] Symptom Monitoring-DM General On track(2023 4:33 PM CRM DEVELOPER) Casey Corona RN Note: Patient will manage [...] Symptom Monitoring-HTN General On track(2023 4:33 PM CRM DEVELOPER) Casey Corona RN Note: Patient will monitor [...] Chronic obstructive pulmonary disease, unspecified COPD type ([facility])- Primary Type 2 diabetes mellitus with stage 3b chronic kidney disease, without long-term current use of insulin ([facility]) Chronic heart failure with preserved ejection fraction (HFpEF) ([facility]) documented in this encounter Additional Health Concerns Assessment Noted Time PHQ-9 Depression Total Score: 13 023 3:56 PM CDT documented as of this encounter Care Teams Country Manager Relationship Specialty Start Date End Date Sanjeev Webster DO [address] [place] [id number] PCP - General FAMILY PRACTICE 09/25/20 [place] [address] [place] [address] Butcher Assistant (Ambulatory) REGISTERED NURSE 08/14/20 documented as of this encounter
--- OUTSIDE RECORDS SUMMARY | 2024-03-15 00:54 | XMS_ITS | Encounter Summary ---
Author Organization [facility] Address [facility]6 [facility] [place] [address] [place] [address] Care Team Providers Care Family Protection Specialist Name Role Phone Dianne Johnson RN Unavailable [phone] Sanjeev Webster DO Primary Care Provider + Reason for Visit * Reason Comments Anticoagulation Encounter Details Date Type Department Care Team (Late st Contact Info) Description 05/07/2023 11:30 AM COUNTER DISH CARRIER Allied Health/Nurse Visit [facility] Family & Internal Medicine [place] [address] [place] [address] Sanjeev Webster DO [facility] [place] [address] Anticoagulation Social History Tobacco Use [...] often do you attend chur ch or taoist services? More than 4 times [...] st Contact Info) Description 04/14/2024 2:00 PM COUNTER DISH CARRIER Office Visit [facility] Multispecialty Care - [facility] [address] [facility], [address] [place] [id number] Julio Pulido MD 3 [place] [address] documented as of this encounter Goals Goal Patient Goal Type Associated Problems Recent Progress Patient-Stated? Author Health - patient able to perform ADLs independently General On track(2023 9:49 AM CDT) Dianne Corona RN Note: 12/17/23: Patient stated she is independent with ASL's. Establish Plan for Symptom Monitoring-CHF General On track(2023 11:36 AM COUNTER DISH CARRIER) Dianne Corona RN Note: Patient will recognize [...] Symptom Monitoring-COPD General On track(2023 11:36 AM COUNTER DISH CARRIER) Dianne Corona RN Note: Patient will recognize [...] Symptom Monitoring-DM General On track(2023 4:33 PM COUNTER DISH CARRIER) Dianne Corona RN Note: Patient will manage [...] Symptom Monitoring-HTN General On track(2023 4:33 PM COUNTER DISH CARRIER) Dianne Corona RN Note: Patient will monitor [...] Associated Diagnosis Comments PROTHROMBIN TIME, VENOUS Routine 05/07/2023 2:24 PM COUNTER DISH CARRIER Chronic anticoagulation lactation consultant (current) use of anticoagulants COLLECTION VENOUS BLOOD VENIPUNCTURE Routine 05/07/2023 2:21 PM COUNTER DISH CARRIER Chronic anticoagulation lactation consultant (current) use of anticoagulants COLLECT.CAPILLARY (FNGR,HEEL,EAR) Routine 05/07/2023 2:04 PM COUNTER DISH CARRIER Chronic anticoagulation lactation consultant (current) use of anticoagulants PROTHROMBIN TIME, FINGERSTICK Routine 05/07/2023 Chronic anticoagulation correction (current) use of anticoagulants documented in this encounter Results * (ABNORMAL) PROTIME/INR, VENOUS (05/07/2023 2:24 PM COUNTER DISH CARRIER) PROTIME 26.1(H) 9.3 - 11.6 SEC 05/07/2023 7:23 PM COUNTER DISH CARRIER [facility] INR 2.7(H) 0.9 - 1.1 05/07/2023 7:23 PM COUNTER DISH CARRIER [facility] Comment: TREATMENT OR PROPHYLAXIS AGAINST: ?? THERAPEUTIC RANGE (INR): ?VENOUS THROMBOSIS ? 2.0-3.0 ?PULMONARY EMBOLUS ? 2.0-3.0 ?? MECHANICAL PROSTHETIC VALVES ? 2.5-3.5 05/07/2023 2:24 PM COUNTER DISH CARRIER Sanjeev Webster DO LABORATORY Final Re sult Performing Organization Address [facility] Co de Phone Number [facility] [address] [place] [address], [place] [phone] * PROTIME/INR, FINGERSTICK (05/07/2023) INR WHOLE BLOOD 3.10 [facility] 05/07/2023 Sanjeev Webster DO LABORATORY Final Re sult Performing Organization Address City/[facility]/ZIP Co de Phone Number [facility] [address] [place] [address], documented in this encounter Visit Diagnoses Diagnosis Chronic anticoagulation- Primary Encounter for long-term (current) use of anticoagulants lactation consultant (current) use of anticoagulants Long-term (current) use of anticoagulants documented in this encounter Additional Health Concerns Assessment Noted Time PHQ-9 Depression Total Score: 13 023 3:56 PM CDT documented as of this encounter Care Teams Family Protection Specialist Relationship Specialty Start Date End Date Sanjeev Webster DO [address] [place] [address] PCP - General FAMILY PRACTICE 09/25/20 Dianne Johnson, RN [address] [place] [address] Radio Dispatcher (Ambulatory) REGISTERED NURSE 08/14/20 documented as of this encounter
--- OUTSIDE RECORDS SUMMARY | 2024-03-15 00:54 | XMS_ITS | Encounter Summary ---
Author Organization [facility] Address [facility] [facility] [place] [address] [place] [address] Care Team Providers Care Certified Nuclear Medicine Technologist Name Role Phone Dianne Johsnon RN Unavailable [phone] Sanjeev Webster DO Primary Care Provider + Encounter Details Date Type Department Care Team (Latest Contact Info) Description 05/12/2023 Travel Social History Tobacco Use Types Packs/Day [...] st Contact Info) Description 04/14/2024 2:00 PM CARTOGRAPHY TEACHER Office Visit [facility] Multispecialty Care - [facility] 3 [facility], [address] [place] [address] Julio Pulido MD 3 [place] [address] documented as of this encounter Goals Goal Patient Goal Type Associated Problems Recent Progress Patient-Stated? Author Health - patient able to perform ADLs independently General On track(2023 9:49 AM CDT) Dianne Corona RN Note: 12/17/23: Patient stated she is independent with ASL's. Establish Plan for Symptom Monitoring-CHF General On track(2023 11:36 AM CARTOGRAPHY TEACHER) Dianne Corona RN Note: Patient will [...] Symptom Monitoring-COPD General On track(2023 11:36 AM CARTOGRAPHY TEACHER) Dianne Corona RN Note: Patient will [...] Symptom Monitoring-DM General On track(2023 4:33 PM CARTOGRAPHY TEACHER) Dianne Corona RN Note: Patient will [...] Symptom Monitoring-HTN General On track(2023 4:33 PM CARTOGRAPHY TEACHER) Dianne Corona, RN Note: Patient will monitor [...] documented as of this encounter Care Teams Certified Nuclear Medicine Technologist Relationship Specialty Start Date End Date Sanjeev Webster DO [address] [place] [address] PCP - General FAMILY PRACTICE 09/25/20 Dianne Johnson, RN [address] [place] [address] Senior Wind Energy Consultant (Ambulatory) REGISTERED NURSE 08/14/20 documented as of this encounter
--- OUTSIDE RECORDS SUMMARY | 2024-03-15 00:54 | XMS_ITS | Encounter Summary ---
Author Organization [facility] Address [facility]6 [facility] [place] [address] [place] [address] Care Team Providers Care Cam Milling Machine Operator Name Role Phone Dianne Johnson RN Unavailable [phone] Sanjeev Webster DO Primary Care Provider + Reason for Visit * Reason Onset Date Comments Medication Problem 05/19/2023 Encounter Details Date Type Department Care Team (Late st Contact Info) Description 05/19/2023 Telephone [facility] Family & Internal Medicine [facility] [address] [place] [address] Sanjeev Webster DO [address] [place] [address] Medication Problem Social History Tobacco [...] Recorded Patient Health Questionnaire-2 Score 6 12/11/2022 [facility] [...] Progress Notes * Dianne Johnson RN - 05/19/2023 4:55 PM CDT Patient notified and verbalizes understanding. She will p/u antibiotic now. * Sanjeev Webster DO - 05/19/2023 3:10 PM CDT Sent Augmentin. Needs to be seen if not improving or call back sooner to be seen if worsening. * Yenifer Batista - 05/19/2023 2:41 PM CDT The patient has the following symptom(s): sore throat, ear hurts, coughing Symptom(s) Started: Thursday OTC Medications tried: none Have you been seen with-in the past 30 days for these same symptoms? No. If so, where? Home Covid test: no Call back #: [phone] Allergies: Allergies Allergen Reactions Atorvastatin Leg Pain Leg pain/cramps. Resolved after stopping. Tape Contact Dermatitis Bacitracin Other (see comment) Benzalkonium Other (see comment) Gramicidin Other (see comment) Hydrocortisone Other (see comment) Neomycin Other (see comment) Polymyxin B Other (see comment) Rosuvastatin Leg Pain Cramping in legs Pharmacy: [facility] Would like something called in documented in this encounter Plan of Treatment Upcoming Encounters Date Type Department Care Team (Late st Contact Info) Description 04/14/2024 2:00 PM CHRONIC SPECIALIST Office Visit [facility] Multispecialty Care - [facility] 3 [facility], [address] [place] [phone] Julio Pulido MD 3 [place] [address] documented as of this encounter Goals Goal Patient Goal Type Associated Problems Recent Progress Patient-Stated? Author Health - patient able to perform ADLs independently General On track(2023 9:49 AM CDT) Dianne Corona, RN Note: 12/17/23: Patient stated she is independent with ASL's. Establish Plan for Symptom Monitoring-CHF General On track(2023 11:36 AM CHRONIC SPECIALIST) Dianne Corona, RN Note: Patient will recognize [...] Symptom Monitoring-COPD General On track(2023 11:36 AM CHRONIC SPECIALIST) Dianne Corona, RN Note: Patient will recognize [...] Symptom Monitoring-DM General On track(2023 4:33 PM CHRONIC SPECIALIST) Dianne Corona RN Note: Patient will [...] Symptom Monitoring-HTN General On track(2023 4:33 PM CHRONIC SPECIALIST) Dianne Corona RN Note: Patient will monitor B/P several times per week , record readings and report to physician or CC if B/P consistently >130/80 Take your medications as prescribed. Follow up with your provider as scheduled. Take your blood pressure at least several times a week if able. documented as of this encounter Visit Diagnoses Diagnosis Upper respiratory tract infection, unspecified type- Primary documented in this encounter Additional Health Concerns Assessment Noted Time PHQ-9 Depression Total Score: 13 023 3:56 PM CDT documented as of this encounter Care Teams Cam Milling Machine Operator Relationship Specialty Start Date End Date Sanjeev Webster DO [address] [place] [address] PCP - General FAMILY PRACTICE 09/25/20 Dianne Johnson RN [address] [place] [address] Sonography Technician (Ambulatory) REGISTERED NURSE 08/14/20 documented as of this encounter
--- OUTSIDE RECORDS SUMMARY | 2024-03-15 00:54 | XMS_ITS | Encounter Summary ---
Author Organization [facility] Address [facility]6 [facility] [place] [place] [address] [place] [address] Care Team Providers Care Back Hand Name Role Phone Dianne Johnson RN Unavailable [phone] Sanjeev Webster DO Primary Care Provider + Reason for Referral * Imaging (Routine) - Closed Specialty Diagnoses / Procedures Referred By Contac t Referred To Contact RADIOLOGY Diagnoses Brain aneurysm (HHS/HCC) Procedures MRA HEAD WO CON Luly Pulido MD 3 [place] [address] Phone: tel: fax: Referral ID Status Reason Start Date Expiration Date Visits Re quested Visits Authorized [id number] Closed 05/06/2023 08/04/2023 1 1 S MAKER Reason for Visit * Imaging (Routine) - Closed Specialty Diagnoses / Procedures Referred By Contac t Referred To Contact RADIOLOGY Diagnoses Brain aneurysm (HHS/HCC) Procedures MRA HEAD WO CON Luly Pulido MD 3 [place] [address] Phone: tel: fax: Referral ID Status Reason Start Date Expiration Date Visits Re quested Visits Authorized [id number] Closed 05/06/2023 08/04/2023 1 1 Encounter Details Date Type Department Care Team (Late st Contact Info) Description 05/12/2023 2:26 PM PANTS MAKER - 05/12/2023 11:59 PM PANTS MAKER Hospital Encounter [facility] [place] [address] Luly Pulido MD [address] [place] [address] Discharge Disposition: Home or Self Care (Routine [...] hronic obstructive pulmonary disease, unspecified COPD type ([facility]) INHALE 2 PUFFS BY MOUTH EVERY 6 HOURS NEEDED FOR WHEEZING 18 g 5 3 Blood Glucose Monitoring Suppl (ONE TOUCH ULTRA 2) w/Device KitIndications:Type 2 diabetes mellitus with stage 3b chronic kidney disease, without long-term current use of insulin ([facility] HHS/[facility]) 1 Device by Does not apply route daily. 1 kit 3 Cholecalciferol (VITAMIN D3) 25 MCG (1000 UT) Cap Take 1 capsule (1,000 Units total) by mouth daily. Glucose Blood (BLOOD GLUCOSE TEST STRIPS) StripIndications:Typ e 2 diabetes mellitus with stage 3b chronic kidney disease, without long-term current use of insulin ([facility] HHS/[facility]) 1 Device by Does not apply route daily. 100 strip 3 3 Lancets (ONETOUCH ULTRASOFT) lancetsIndications:T ype 2 diabetes mellitus with stage 3b chronic kidney disease, without long-term current use of insulin ([facility]) 1 each by Other route as needed. Use as instructed 100 each 3 3 methIMAzole (TAPAZOLE) 5 MG tablet Take 1 tablet (5 mg total) by mouth daily. 4 simvastatin (ZOCOR) 10 MG tabletIndications:Hy perlipidemia associated with type 2 diabetes mellitus ([facility]) Take 1 tablet (10 mg total) by mouth nightly at bedtime. 90 tablet 3 3 ALPRAZolam (XANAX) 0.5 MG tabletIndications:An xiety TAKE 1/2 (ONE-HALF) TABLET BY MOUTH NIGHTLY NEEDED FOR SLEEP 15 tablet 4 06/05/19 24 docusate sodium (COLACE) 100 MG capsuleIndications:C onstipation Take one by mouth twice daily or as needed for constipation. 30 capsule 4 11/19/19 24 furosemide (LASIX) 20 MG tabletIndications:Hy pertensive heart disease with congestive heart failure ([facility] HHS/HCC) Take 1 tablet (20 mg total) by mouth daily. 30 tablet 3 3 05/22/19 24 furosemide (LASIX) 80 MG tabletIndications:Ch ronic heart failure with preserved ejection fraction (HFpEF) ([facility] HHS/HCC) Take 0.5 tablets (40 mg total) by mouth daily. 30 tablet 3 06/30/19 24 gabapentin (NEURONTIN) 300 MG capsuleIndications:C hronic low back pain, unspecified back pain laterality, unspecified whether sciatica present take 1 capsule by mouth three times daily 270 capsule 4 08/27/19 24 HYDROcodone-acetamin ophen (NORCO) 5-325 MG tabletIndications:Ch ronic Pain Take 1-2 tablets by mouth every 6 (six) hours as needed for Pain. Indications: Chronic Pain 60 tablet 4 05/26/19 24 iron polysaccharides (NIFEREX) 150 MG capsuleIndications:I elida deficiency anemia, unspecified iron deficiency anemia type Take 1 capsule (150 mg total) by mouth daily. 30 capsule 2 3 12/08/19 24 methIMAzole (TAPAZOLE) 10 MG tabletIndications:Hy perthyroidism Take 1 tablet by mouth once daily 90 tablet 1 4 06/22/19 24 metoprolol tartrate (LOPRESSOR) 25 MG tabletIndications:Ch ronic heart failure with preserved ejection fraction (HFpEF) ([facility] HHS/HCC) Take 0.5 tablets (12.5 mg total) by mouth 2 (two) times daily. 90 tablet 3 3 08/19/19 24 omeprazole (PRILOSEC) 20 MG capsuleIndications:G ERD (gastroesophageal reflux disease) Take 1 capsule by mouth once daily 90 capsule 4 05/14/19 24 potassium chloride CR (K-TAB) 10 MEQ Tab CR tabletIndications:Hy pokalemia Take 1 tablet by mouth once daily 90 tablet 3 05/22/19 24 predniSONE (DELTASONE) 20 MG tabletIndications:Br onchitis Take 3 tablets for three days, then take 2 tablets for three days, then take 1 tablet for three days 18 tablet 4 05/26/19 24 TRULICITY 1.5 MG/0.5ML injectionIndications :Type 2 diabetes mellitus with stage 3b chronic kidney disease, without long-term current use of insulin ([facility] HHS/HCC) inject 1 syringe subcutaneously once a week 12 mL 4 09/01/19 24 venlafaxine XR (EFFEXOR-XR) 150 MG 24 hr capsuleIndications:Tiny bateman 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 Thursday , Thursday and Thursday with 6mg to total 8 mg and 1 tablet daily Thursday through with 6mg tablet for a total of 7mg 60 tablet 2 4 06/11/19 24 warfarin (COUMADIN) 5 MG tabletIndications:LB BB (left bundle branch block),Paroxysmal atrial flutter (CMS/HCC HHS/HCC) Take 1 tablet by mouth once daily 90 tablet 4 06/11/19 24 warfarin (COUMADIN) 6 MG tabletIndications:Ch ronic anticoagulation Take 6mg Thursday, Thursday and Thursday with 2mg to total 8 mg and 1 tablet daily Thursday through with 1mg tablet for a total of 7mg 30 tablet 2 4 06/11/19 24 documented as of this encounter Plan of Treatment Upcoming Encounters Date Type Department Care Team (Late st Contact Info) Description 04/14/2024 2:00 PM PANTS MAKER Office Visit [facility] Multispecialty Care - [facility] 3 [facility], [address] [place] [address] Luly Pulido MD [address] [place] [address] documented as of this encounter Goals Goal Patient Goal Type Associated Problems Recent Progress Patient-Stated? Author Health - patient able to perform ADLs independently General On track(2023 9:49 AM CDT) Dianne Corona, RN Note: 12/17/23: Patient stated she is independent with ASL's. Establish Plan for Symptom Monitoring-CHF General On track(2023 11:36 AM PANTS MAKER) Dianne Corona RN Note: Patient will [...] Symptom Monitoring-COPD General On track(2023 11:36 AM PANTS MAKER) Dianne Coroan, RN Note: Patient will recognize symptoms of [...] Symptom Monitoring-DM General On track(2023 4:33 PM PANTS MAKER) Dianne Corona RN Note: Patient will [...] Symptom Monitoring-HTN General On track(2023 4:33 PM PANTS MAKER) No Dianne Johnson, RN Note: Patient will monitor B/P several times per week , record readings and report to physician or CC if B/P consistently >130/80 Take your medications as prescribed. Follow up with your provider as scheduled. Take your blood pressure at least several times a week if able. documented as of this encounter Procedures Procedure Name Priority Date/Time Associated Diagnosis Comments MRA HEAD WO CON Routine 05/12/2023 4:45 PM PANTS MAKER Brain aneurysm (HHS/HCC) documented in this encounter Results * MRA HEAD WO CON (05/12/2023 4:45 PM PANTS MAKER) Anatomical Region Laterality Modality Head Magnetic Resonan ce 05/14/2023 7:29 AM PANTS MAKER Impressions 05/14/2023 7:33 AM PANTS MAKER IMPRESSION: 1. 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 2. 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 ?? 3. origin left posterior cerebral artery. Referred By: LULY PULIDO Interpreted By: James Frank MD, 05/14/2023 7:29 AM Narrative 05/14/2023 7:33 AM PANTS MAKER EXAMINATION:Brain MRA without contrast 04/13/2023 INDICATION:Dizziness, untreated cerebral aneurysm TECHNIQUE: Noncontrast enhanced 3-D time of flight MRA images of [place] were acquired in 3-D maximum intensity projection images COMPARISON: Head CTA 10/22/2021 FINDINGS:Flow signal is noted within the intracranial internal carotid, vertebral and basilar arteries. Flow signal is noted within the anterior, middle and posterior cerebral arteries. ??There is a origin of the left posterior cerebral artery. No focal intracranial stenosis or large vessel occlusion. There is a 4 mm saccular aneurysm at the right MCA bifurcation, not significantly changed allowing for differences in technique and measurement. The A1 segment on the left is absent. Evaluation of the proximal V4 segments the vertebral arteries is limited due to artifact. Procedure Note James Frank MD - 05/14/2023 EXAMINATION:Brain MRA without contrast 04/13/2023 INDICATION:Dizziness, untreated cerebral aneurysm TECHNIQUE: Noncontrast enhanced 3-D time of flight MRA images [place] were acquired in 3-D maximum intensity projection images COMPARISON: Head CTA 10/22/2021 FINDINGS:Flow signal is noted within the intracranial internal carotid,vertebral and basilar arteries. Flow signal is noted within the anterior, middle and posterior cerebralarteries. There is a origin of the left posterior cerebralartery. No focal intracranial stenosis or large vessel occlusion. There is a 4 mm saccular aneurysm at the right MCA bifurcation, notsignificantly changed allowing for differences in technique andmeasurement. The A1 segment on the left is absent. Evaluation of the proximal V4 segments the vertebral arteries is limiteddue to artifact. IMPRESSION: 1. No significant change of a 4 mm saccular aneurysm at the right MCAbifurcation compared to the prior CTA of 10/22/2021. 2. 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 3. origin left posterior cerebral artery. Referred By: LULY PULIDO Interpreted By: James Frank MD, 05/14/2023 7:29 AM us Luly Pulido MD MRI Final Resul t documented in this encounter Visit Diagnoses Diagnosis Brain aneurysm (HHS/HCC) Cerebral aneurysm, nonruptured documented in this encounter Additional Health Concerns Assessment Noted Time PHQ-9 Depression Total Score: 13 023 3:56 PM CDT documented as of this encounter Care Teams Back Hand Relationship Specialty Start Date End Date Sanjeev Webster DO [address] [place] [address] PCP - General FAMILY PRACTICE 09/25/20 Dianne Johnson, RN [address] [place] [address] Butcher Scullion (Ambulatory) REGISTERED NURSE 08/14/20 documented as of this encounter
--- OUTSIDE RECORDS SUMMARY | 2024-03-15 00:54 | XMS_ITS | Encounter Summary ---
Author Organization [facility] Address [facility] [place] [address] [place] [address] Care Team Providers Care Chief Sustainability Officer Name Role Phone Dianne Johnson RN Unavailable [phone] Sanjeev Montez DO Primary Care Provider + Reason for Visit * Reason Onset Date Comments Lab Order 05/25/2023 Encounter Details Date Type Department Care Team (Late st Contact Info) Description 05/25/2023 Telephone [facility] Medical Group Family & Internal Medicine [facility] [address] [place] [address] Sanjeev Montez DO [address] [place] [address] Lab Order Social History Tobacco [...] Recorded Patient Health Questionnaire-2 Score 6 12/11/2022 [facility]at ional Health [...] Progress Notes * Sanjeev Montez DO - 05/26/2023 9:43 AM CDTAddended by: SANJEEV MONTEZ on: 05/26/2023 09:43 AM Modules accepted: Orders * Yenifer Wolf MA - 05/26/2023 9:38 AM CDTAddended by: YENIFER WOLF on: 05/26/2023 09:38 AM Modules accepted: Orders * Yenifer Wolf MA - 05/26/2023 9:38 AM CDT Refill request received from Patient Last visit with SANJEEV MONTEZ in FAMILY PRACTICE was on: 03/11/2023 in [facility] Appointments Date Time Provider Department Center 06/23/2023 11:00 AM [facility] 06/23/2023 12:00 PM [facility] 09/04/2023 1:00 PM Sania Gomez MD [facility] 04/14/2024 2:00 PM MD NALINI Gutierrez [facility] [address] [facility] [address] [facility] 10[address] [facility] [address] [id number] [place], [place] - [address] [facility] [address] [facility] [id number] Current Outpatient Medications: acetaminophen (TYLENOL) 500 MG [...] FOR SLEEP, Disp: 15 tablet, Rfl: 0 amoxicillin-clavulanate (AUGMENTIN) 875-125 MG tablet, Take 1 tablet (875 mg total) by mouth 2 (two) times daily for 10 days., Disp: 20 tablet, Rfl: 0 Blood Glucose Monitoring Suppl (ONE TOUCH ULTRA 2) w/Device Kit, 1 Device by Does not apply route daily., Disp: 1 kit, Rfl: 0 Cholecalciferol (VITAMIN D3) 25 MCG (1000 UT) Cap, Take 1,000 Units by mouth daily., Disp: , Rfl: docusate sodium (COLACE) 100 MG capsule, Take one by mouth twice daily or as needed for constipation., Disp: 30 capsule, Rfl: 0 furosemide (LASIX) 20 MG tablet, Take 1 tablet by mouth once daily, Disp: 30 tablet, Rfl: 0 furosemide (LASIX) 80 MG tablet, Take 0.5 tablets (40 mg total) by mouth daily. (Patient taking differently: Alternate 20 mg and 40 mg of furosemide on alternating days.), Disp: 30 tablet, Rfl: 0 gabapentin (NEURONTIN) [...] instructed, Disp: 100each, Rfl: 3 methIMAzole (TAPAZOLE) 10 MG tablet, Take 1 tablet by mouth once daily, Disp: 90 tablet, Rfl: 1 metoprolol tartrate (LOPRESSOR) 25 MG tablet, Take 0.5 tablets (12.5 mg total) by mouth 2 (two) times daily., Disp: 90 tablet, Rfl: 3 omeprazole (PRILOSEC) 40 MG capsule, Take 1 capsule (40 mg total) by mouth daily., Disp: 90 capsule, Rfl: 1 potassium chloride CR (K-TAB) 10 MEQ Tab CR tablet, Take 1 tablet by mouth once daily, Disp: 90 tablet, Rfl: 0 predniSONE (DELTASONE) 20 MG tablet, Take 3 tablets for three days, then take 2 tablets for three days, then take 1 tablet for three days, Disp: 18 tablet, Rfl: 0 simvastatin (ZOCOR) 10 MG tablet, Take 1 tablet (10 mg total) by mouth nightly at bedtime., Disp: 90 tablet, Rfl: 3 TRULICITY 1.5 MG/0.5ML injection, inject 1 syringe subcutaneously once a week, Disp: 12 mL, Rfl: 0 venlafaxine XR (EFFEXOR-XR) 150 MG 24 hr capsule, Take 1 capsule by mouth once daily, Disp: 90 capsule, Rfl: 0 warfarin (COUMADIN) 1 MG tablet, Take 2 tablets (2 mg total) by mouth see administration instructions. Thursday , Thursday and Thursday with 6mg to total 8 mg and 1 tablet daily Thursday through with 6mg tablet for a total of 7mg, Disp: 60 tablet, Rfl: 2 warfarin (COUMADIN) 5 MG tablet, Take 1 tablet by mouth once daily, Disp: 90 tablet, Rfl: 0 warfarin (COUMADIN) 6 MG tablet, Take 6mg Thursday, Thursday and Thursday with 2mg to total 8 mg and 1 tablet daily Thursday through with 1mg tablet for a total of 7mg, Disp: 30 tablet, Rfl: 2 * Yenifer Wolf MA - 05/25/2023 3:37 PM CDT Called that patient twice. The patient answered with tuyet but was unable to hear her afterwards. Patient needs to schedule INR MEGAN. * Sanjeev Montez DO - 05/25/2023 3:04 PM CDT Should repeat at earliest convenience. * Yenifer Wolf MA - 05/25/2023 2:31 PM CDT Patient's last INR was 2.7 on 05/07/2023. Per Camelia's result note: Stable cont. Meds. Please advise. * Dianne Johnson, DALE - 05/25/2023 1:06 PM CDT Patient much better since taking Augmentin. Denies s/s of bleeding since taking Augmentin with Warfarin. She is unsure when she needs to repeat PT/INR. documented in this encounter Plan of Treatment Upcoming Encounters Date Type Department Care Team (Late st Contact Info) Description 04/14/2024 2:00 PM WILD OYSTER HARVESTER Office Visit [facility] Medical Group Multispecialty Care - [facility] [address] [facility], [address] [place] [address] Julio Pulido MD 3 [place] [address] documented as of this encounter Goals Goal Patient Goal Type Associated Problems Recent Progress Patient-Stated? Author Health - patient able to perform ADLs independently General On track(2023 9:49 AM CDT) Dianne Corona RN Note: 12/17/23: Patient stated she is independent with ASL's. Establish Plan for Symptom Monitoring-CHF General On track(2023 11:36 AM WILD OYSTER HARVESTER) Dianne Corona RN Note: Patient will recognize [...] Symptom Monitoring-COPD General On track(2023 11:36 AM WILD OYSTER HARVESTER) Dianne Corona RN Note: Patient will recognize [...] Symptom Monitoring-DM General On track(2023 4:33 PM WILD OYSTER HARVESTER) Dianne Corona RN Note: Patient will manage [...] Symptom Monitoring-HTN General On track(2023 4:33 PM WILD OYSTER HARVESTER) No Dianne Johnson RN Note: Patient will [...] as of this encounter Care Teams Chief Sustainability Officer Relationship Specialty Start Date End Date Sanjeev Montez DO [address] [place] [address] PCP - General FAMILY PRACTICE 09/25/20 Dianne Johnson, RN [address] [place] [address] Certified Physical Therapist Assistant (Ambulatory) REGISTERED NURSE 08/14/20 documented as of this encounter
--- OUTSIDE RECORDS SUMMARY | 2024-03-15 00:54 | XMS_ITS | Encounter Summary ---
Author Organization [facility] Address [facility] [place] [address] [place] [address] Care Team Providers Care Cafeteria Food Server Name Role Phone Dianne Johnson RN Unavailable [phone] Sanjeev Webster DO Primary Care Provider + Reason for Visit * Reason Onset Date Comments Returned Call 05/08/2023 Lab Results 05/08/2023 Encounter Details Date Type Department Care Team (Late st Contact Info) Description 05/08/2023 Telephone [facility] Medical Group Family & Internal Medicine [address] [address] Sanjeev Webster DO [address] [place] [address] Returned Call; Lab Results Social History Tobacco Use Types [...] often do you attend chur ch or mormon services? More than 4 times per year [...] Score 6 12/11/2022 [facility] Occupat ionmo Health - Occupational Stress Questionnaire Answer Date [...] Progress Notes * Diana Cantrell MA - 05/08/2023 1:52 PM CST LMOM to continue current meds as ordered. ----- Message from MARU Hodge sent at 05/08/2023 12:29 PM POSTAGE MACHINE OPERATOR ----- Stable. Cont meds AGE MACHINE OPERATOR AGE MACHINE OPERATOR * Lashawn Vega - 05/08/2023 11:43 AM CST Pt daughter in law returned a call to Shanel, she said to give her a call back. If after 12:30 she will not be able to answer her phone. AGE MACHINE OPERATOR documented in this encounter Plan of Treatment Upcoming Encounters Date Type Department Care Team (Late st Contact Info) Description 04/14/2024 2:00 PM POSTAGE MACHINE OPERATOR Office Visit [facility] Medical Group Multispecialty Care - [facility] [address] [facility], [address] [place] [phone] Julio Pulido MD 3 [place] [address] documented as of this encounter Goals Goal Patient Goal Type Associated Problems Recent Progress Patient-Stated? Author Health - patient able to perform ADLs independently General On track(2023 9:49 AM CDT) Dianne Corona RN Note: 12/17/23: Patient stated she is independent with ASL's. Establish Plan for Symptom Monitoring-CHF General On track(2023 11:36 AM POSTAGE MACHINE OPERATOR) Dianne Corona RN Note: Patient [...] Symptom Monitoring-COPD General On track(2023 11:36 AM POSTAGE MACHINE OPERATOR) Dianne Corona RN Note: Patient [...] Symptom Monitoring-DM General On track(2023 4:33 PM POSTAGE MACHINE OPERATOR) Dianne Corona RN Note: Patient [...] Symptom Monitoring-HTN General On track(2023 4:33 PM POSTAGE MACHINE OPERATOR) No Dianne Johnson, RN Note: Patient will [...] as of this encounter Care Teams Cafeteria Food Server Relationship Specialty Start Date End Date Sanjeev Webster DO [address] [place] [address] PCP - General FAMILY PRACTICE 09/25/20 Dianne Johnson, RN [address] [place] [address] Filler Spreader (Ambulatory) REGISTERED NURSE 08/14/20 documented as of this encounter
--- OUTSIDE RECORDS SUMMARY | 2024-03-15 00:54 | XMS_ITS | Encounter Summary ---
Author Organization [facility] Address [facility] [place] [address] [place] [address] Care Team Providers Care Duck Bill Operator Name Role Phone Dianne Johnson RN Unavailable [phone] Sanjeev Webster DO Primary Care Provider + Reason for Visit * Reason Comments Lab (SCAN) Encounter Details Date Type Department Care Team (Latest Contact Info) Description 05/09/2023 Scan HEALTH INFO SRVCS Scanned, Doc Med [...] any clubs o r organizations such as islam groups, unions, fraternal or athletic groups, or [...] Patient Health Questionnaire-2 Score 6 12/11/2022 [facility] - Occupational Stress Questionnaire Answer Date [...] Contact Info) Description 04/14/2024 2:00 PM MEDICAL SCHEDULER Office Visit [facility] Medical Group Multispecialty Care - [facility] 3 [facility], [address] [place] [address] Julio Pulido MD [address] [place] [address] documented as of this encounter Goals Goal Patient Goal Type Associated Problems Recent Progress Patient-Stated? Author Health - patient able to perform ADLs independently General On track(2023 9:49 AM CDT) Dianne Corona RN Note: 12/17/23: Patient stated she is independent with ASL's. Establish Plan for Symptom Monitoring-CHF General On track(2023 11:36 AM MEDICAL SCHEDULER) Dianne Corona RN Note: Patient will recognize [...] Monitoring-COPD General On track(2023 11:36 AM MEDICAL SCHEDULER) Dianne Corona RN Note: Patient will recognize [...] Monitoring-DM General On track(2023 4:33 PM MEDICAL SCHEDULER) Dianne Corona RN Note: Patient will manage [...] Monitoring-HTN General On track(2023 4:33 PM MEDICAL SCHEDULER) Dianne Corona, RN Note: Patient will monitor [...] Associated Diagnosis Comments OUTSIDE LAB (SCAN ORDER) 05/09/2023 documented in this encounter Results * OUTSIDE LAB (SCAN ORDER) (05/09/2023) 05/09/2023 us Doc Med Group Scanned SCANNING Final Resu lt documented in this encounter Visit Diagnoses Not on filedocumented in this encounter Additional Health Concerns Assessment Noted Time PHQ-9 Depression Total Score: 13 023 3:56 PM CDT documented as of this encounter Care Teams Duck Bill Operator Relationship Specialty Start Date End Date Sanjeev Webster DO [address] [place] [address] PCP - General FAMILY PRACTICE 09/25/20 Dianne Johnson, RN [address] [place] [address] Patrol Police Sergeant (Ambulatory) REGISTERED NURSE 08/14/20 documented as of this encounter
--- OUTSIDE RECORDS SUMMARY | 2024-03-15 00:54 | XMS_ITS | Encounter Summary ---
Author Organization [facility] Address [facility] [place], [place] [address] [place] [address] Care Team Providers Care Helminthologist Name Role Phone Dianne Johnson RN Unavailable [phone] Sanjeev Webster DO Primary Care Provider + Reason for Visit * Reason Onset Date Comments Referral 05/25/2023 Encounter Details Date Type Department Care Team (Late st Contact Info) Description 05/25/2023 Telephone [facility] Medical Group Family & Internal Medicine [place] [address] [place] [address] Sanjeev Webster DO [address] [place] [address] Referral Social History Tobacco Use [...] Recorded Patient Health Questionnaire-2 Score 6 12/11/2022 [facility] of Occupat ional [...] documented in this encounter Progress Notes * Fadia Spivey - 05/25/2023 11:15 AM CDT I called lakeisha [phone] and canceled her apt for her since we have it in writing from Darin to cancel the apt. I spoke to Jo at the office and she made note of the changes. * Natalee Brown RN - 05/25/2023 10:25 AM CDT Spoke with patient. She does not want to go to see Dr. Vail. She stated she did not make the appointment for today and does not wish to go. Patient does not want the referral placed. Opportunity given for all questions to be answered, no further needs voiced at this time. LL-05/25/23 * Sanjeev Webster DO - 05/25/2023 9:28 AM CDT I believe pt did not want to see them and we agreed to manage at this time. OK to cancel appointment. * Fadia Spivey - 05/25/2023 9:18 AM CDT We have received a request from Dr. Aleman office for Nephrology at [facility]. Pt has an apt scheduled today at 1130AM. Please place a referral so we can obtain the essence authorization for the scheduled apt. I did see a telephone encounter where it was ntoed that the pt is ok for Darin to manage, but she still has an apt scheduled with [facility]. FX: [phone] If the pt needs to cancel this apt pleas let her know. documented in this encounter Plan of Treatment Upcoming Encounters Date Type Department Care Team (Late st Contact Info) Description 04/14/2024 2:00 PM PROMOS EXECUTIVE PRODUCER Office Visit [facility] Medical Group Multispecialty Care - [facility] 3 [facility], [address] [place] [phone] Julio Pulido MD 3 [place] [address] documented as of this encounter Goals Goal Patient Goal Type Associated Problems Recent Progress Patient-Stated? Author Health - patient able to perform ADLs independently General On track(2023 9:49 AM CDT) Dianne Corona RN Note: 12/17/23: Patient stated she is independent with ASL's. Establish Plan for Symptom Monitoring-CHF General On track(2023 11:36 AM PROMOS EXECUTIVE PRODUCER) Dianne Corona RN Note: Patient will recognize [...] Symptom Monitoring-COPD General On track(2023 11:36 AM PROMOS EXECUTIVE PRODUCER) Dianne Corona RN Note: Patient will recognize [...] Symptom Monitoring-DM General On track(2023 4:33 PM PROMOS EXECUTIVE PRODUCER) Dianne Corona RN Note: Patient will manage [...] Symptom Monitoring-HTN General On track(2023 4:33 PM PROMOS EXECUTIVE PRODUCER) Dianne Corona RN Note: Patient will monitor [...] documented as of this encounter Care Teams Helminthologist Relationship Specialty Start Date End Date Sanjeev Webster DO [address] [place] [address] PCP - General FAMILY PRACTICE 09/25/20 Dianne Johnson, RN [facility] [place] [address] Talent Engineer (Ambulatory) REGISTERED NURSE 08/14/20 documented as of this encounter
--- OUTSIDE RECORDS SUMMARY | 2024-03-15 00:54 | XMS_ITS | Encounter Summary ---
Author Organization [facility] Address [facility] [place] [address] [place] [address] Care Team Providers Care Case Sealer Name Role Phone Dianne Johnson RN Unavailable [phone] Sanjeev Webster DO Primary Care Provider + Reason for Visit * Reason Comments Lab (SCAN) Encounter Details Date Type Department Care Team (Latest Contact Info) Description 04/29/2023 Scan HEALTH INFO SRVCS Scanned, Doc Med [...] 6 12/11/2022 [facility] - Occupational Stress Questionnaire Answer Date [...] st Contact Info) Description 04/14/2024 2:00 PM KEYPUNCH OPERATORS SUPERVISOR Office Visit [facility] Medical Group Multispecialty Care - [facility] 3 [facility], [address] [place] [address] Julio Pulido MD 3 [place] [address] documented as of this encounter Goals Goal Patient Goal Type Associated Problems Recent Progress Patient-Stated? Author Health - patient able to perform ADLs independently General On track(2023 9:49 AM CDT) Dianne Corona RN Note: 12/17/23: Patient stated she is independent with ASL's. Establish Plan for Symptom Monitoring-CHF General On track(2023 11:36 AM KEYPUNCH OPERATORS SUPERVISOR) Dianne Corona RN Note: Patient will [...] Symptom Monitoring-COPD General On track(2023 11:36 AM KEYPUNCH OPERATORS SUPERVISOR) Dianne Corona RN Note: Patient will [...] Symptom Monitoring-DM General On track(2023 4:33 PM KEYPUNCH OPERATORS SUPERVISOR) Dianne Corona RN Note: Patient will [...] Symptom Monitoring-HTN General On track(2023 4:33 PM KEYPUNCH OPERATORS SUPERVISOR) Dianne Corona, DALE Note: Patient will monitor [...] Associated Diagnosis Comments OUTSIDE LAB (SCAN ORDER) 04/29/2023 OUTSIDE LAB (SCAN ORDER) 04/29/2023 OUTSIDE LAB (SCAN ORDER) 04/29/2023 documented in this encounter Results * OUTSIDE LAB (SCAN ORDER) (04/29/2023) 04/29/2023 us Doc Med Group Scanned SCANNING Final Resu lt * OUTSIDE LAB (SCAN ORDER) (04/29/2023) 04/29/2023 us Doc Med Group Scanned SCANNING Final Resu lt * OUTSIDE LAB (SCAN ORDER) (04/29/2023) 04/29/2023 us Doc Med Group Scanned SCANNING Final Resu lt documented in this encounter Visit Diagnoses Not on filedocumented in this encounter Additional Health Concerns Assessment Noted Time PHQ-9 Depression Total Score: 13 023 3:56 PM CDT documented as of this encounter Care Teams Case Sealer Relationship Specialty Start Date End Date Sanjeev Webster DO [address] [place] [address] PCP - General FAMILY PRACTICE 09/25/20 Dianne Johnson, RN [address] [place] [address] Item Repair Manager (Ambulatory) REGISTERED NURSE 08/14/20 documented as of this encounter
--- OUTSIDE RECORDS SUMMARY | 2024-03-15 00:55 | XMS_ITS | Encounter Summary ---
Author Organization [facility] Address [facility]6 [place] [address] [place] [address] Care Team Providers Care Mechanic Welder Name Role Phone Dianne Johnson RN Unavailable [phone] Sanjeev Webster DO Primary Care Provider + Encounter Details Date Type Department Care Team (Latest Contact Info) Description 04/28/2023 Travel Social History Tobacco Use Types Packs/Day [...] How often do you attend chur or anabaptism services? More than 4 times [...] Recorded Patient Health Questionnaire-2 Score 6 12/11/2022 [facility] of Occupat ional Health - [...] st Contact Info) Description 04/14/2024 2:00 PM CASE MANAGEMENT DIRECTOR Office Visit [facility] Medical Group Multispecialty Care - [facility] 3 [facility], [address] [place] [address] Julio Pulido MD 3 [place] [address] documented as of this encounter Goals Goal Patient Goal Type Associated Problems Recent Progress Patient-Stated? Author Health - patient able to perform ADLs independently General On track(2023 9:49 AM CDT) Dianne Corona RN Note: 12/17/23: Patient stated she is independent with ASL's. Establish Plan for Symptom Monitoring-CHF General On track(2023 11:36 AM CASE MANAGEMENT DIRECTOR) Dianne Corona RN Note: Patient will recognize [...] Symptom Monitoring-COPD General On track(2023 11:36 AM CASE MANAGEMENT DIRECTOR) Dianne Corona RN Note: Patient will recognize [...] Symptom Monitoring-DM General On track(2023 4:33 PM CASE MANAGEMENT DIRECTOR) Dianne Corona RN Note: Patient will manage [...] Symptom Monitoring-HTN General On track(2023 4:33 PM CASE MANAGEMENT DIRECTOR) Dianne Corona, RN Note: Patient will monitor [...] documented as of this encounter Care Teams Mechanic Welder Relationship Specialty Start Date End Date Sanjeev Webster DO [address] [place] [address] PCP - General FAMILY PRACTICE 09/25/20 Dianne Johnson, RN [address] [place] [address] Speech And Language Assistant (Ambulatory) REGISTERED NURSE 08/14/20 documented as of this encounter
--- OUTSIDE RECORDS SUMMARY | 2024-03-15 00:55 | XMS_ITS | Encounter Summary ---
Author Organization [facility] Address [facility] [place] [address] [place] [address] Care Team Providers Care Tax Map Technician Name Role Phone Casey Johnson RN Unavailable [phone] Sanjeev Webster DO Primary Care Provider + Reason for Visit * Reason Onset Date Comments Care Management 03/26/2023 Encounter Details Date Type Department Care Team (Late st Contact Info) Description 03/26/2023 Patient Outreach [facility] Family & Internal Medicine [address] [address] Casey Johnson, RN [address] [place] [address] Care Management Social History Tobacco [...] How often do you attend chur or church services? More than 4 times per year [...] Recorded Patient Health Questionnaire-2 Score 6 12/11/2022 [facility] - [...] Progress Notes * Casey Johnson RN - 03/26/2023 11:25 AM CST Chronic Care Management: Patient concerns or urgent matters that need addressed: Non identified during this call. Patient Status: Patient cut finger on plastic water container when moving it yesterday. Stated she was able to stopthe bleeding with no issues. She is not taking warfarin a this time per orders. She has completed antibiotic and denies any issues with upper respiratory s/s at this time. Denies CHF orCOPD exacerbation s/s at this time. She is not checking her BS at home. Stated she will check it a couple times a week. BP on 03/11/23 is 132/88. Izzy ([id number]) continues to fill pill wedding planner. Reminded patient to get INR at PCP office tomorrow at 1:00 PM. Patient verbalizes understanding. Informed patient she is scheduled for a CT scan at [facility] on 03/11/23. CC will remind her closer to that time. Patient thanked CC for calling and denies any issues at this time. Encouraged to call CC at the onset of any changes. Plan of Care: borough coordinator will continue to follow up by [...] Future Appointments Date Time Provider Department Center 03/27/2023 1:00 PM MG TRINH NURSE [id number] 04/07/2023 2:[address] SEOCT [facility] 04/09/2023 1:40 PM Julio Pulido MD [facility] 04/10/2023 1:00 PM ALEX ECHO 1 SEONOIV [facility] 04/14/2023 3:00 PM ALEX MRI SEOMRI [facility] 04/14/2023 4:00 PM ALEX MRI SEOMRI [facility] 09/04/2023 1:00 PM Sania Gomez MD [facility] Quality care gaps: Health Maintenance Topic Date Due Kidney Health Evaluation Never done Annual Medicare Wellness Visit Never done Lipid Panel 08/29/2022 ASCVD LDL 08/29/2022 Zoster Vaccines (3 of 3) 02/17/2024 (Originally 01/06/2023) RSV Immunization or 60+ Years (1 - 1-dose 60+ series) 02/17/2024 (Originally 2004) COVID-19 Vaccine (5 - 2022-24 season) 2112 (Originally 11/07/2022) Hemoglobin A1C 07/13/2023 [...] test Chronic anticoagulation Coronary artery disease involving little traverse coronary artery of little traverse heart without angina pectoris Dyspnea on exertion H/O mechanical aortic valve replacement Hypertensive heart disease with congestive heart failure ([facility]/HCC) ([facility]) LBBB (left bundle branch block) Myopathy VAZQUEZ (obstructive sleep apnea) Paroxysmal atrial flutter ([facility]/HCC) ([facility]/HCC) Benign hypertension with CKD (chronic kidney disease) stage III ([facility]/HCC) Memory deficits Hearing deficit, bilateral History of cataract extraction, unspecified laterality Vitamin D deficiency Hypercalcemia Chronic frontal sinusitis Constipation, unspecified constipation type Chronic bilateral low back pain without sciatica Iron deficiency anemia, unspecified iron deficiency anemia type Disorder of skin of trunk Anemia Body mass index (BMI) 31.0-31.9, adult 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[facility]/HCC) Benign hypertension with stage 3b chronic kidney disease (CMS/HCC) Cobalamin deficiency Compression fracture of thoracic vertebra ([facility]/HCC) (CMS/HCC) Depression Diabetic polyneuropathy ([facility]HS/HCC) (CMS/HCC) Disorder of rotator cuff Diverticular disease Dysphagia Elevated troponin Gastroesophageal reflux disease without esophagitis Hyperlipidemia, unspecified hyperlipidemia type Vascular dementia (CMS/HCC) Unknown and unspecified causes of morbidity Syncope, unspecified syncope type Wrist joint pain Respiratory illness Requires lifelong warfarin therapy Secondary hyperparathyroidism ([facility]) ([facility]) Presence of prosthetic heart valve Plantar fascial fibromatosis Peripheral neuropathy Parathyroid adenoma Polymyalgia rheumatica ([facility]) ([facility]) Osteoporosis Numbness Muscle cramps Closed stable burst fracture of sixth thoracic vertebra, initial encounter ([facility]) ([facility]) Chest pain Contusion of scalp Knee pain Localized, primary osteoarthritis Osteoarthritis of knee Traumatic closed displaced fracture of distal end of radius Shoulder joint pain Hyperlipidemia associated with type 2 diabetes mellitus ([facility]) ([facility] PVD (peripheral vascular disease) ([facility]) Hematoma Anxiety Diastolic heart failure ([facility]) ([facility]) Internal hemorrhoids Leukoencephalopathy Major depression single episode, in partial remission ([facility]) Metacarpal bone fracture Mitral valve disorder Peripheral arterial occlusive disease ([facility]) Primary osteoarthritis involving multiple joints Vision loss COPD (chronic obstructive pulmonary disease) ([facility]) ([facility]) Diarrhea Drug-induced constipation H/O mechanical aortic valve replacement Age-related osteoporosis with current pathological fracture Care Management Physical deconditioning Chronic heart failure with preserved ejection fraction (HFpEF) ([facility]) ([facility]) Paroxysmal atrial fibrillation ([facility]) ([facility]) Hypertension associated with type 2 diabetes mellitus ([facility]) ([facility]) Encounter for prophylactic measures, unspecified Graves' disease Cirrhosis of liver without ascites, unspecified hepatic cirrhosis type ([facility]) ([facility]) Stage 3b chronic kidney disease ([facility]) OLIVE (acute kidney injury) ([facility]) Heart failure with mildly reduced ejection fraction (HFmrEF) ([facility]) ([facility]) Medications: Current Outpatient Medications Medication Sig Dispense [...] as needed for constipation. 30 capsule 0 dulaglutide (TRULICITY) 1.5 MG/0.5ML injection Inject 1.5 mg into the skin once a week. Indications: Diabetes 6 mL 0 furosemide (LASIX) 20 MG tablet Take 1 tablet (20 mg total) by mouth daily. 30 tablet 3 furosemide (LASIX) 80 MG tablet Take 0.5 tablets (40 mg total) by mouth daily. (Patient taking differently: Alternate 20 mg and 40 mg of furosemide on alternating days.) 30 tablet 0 gabapentin (NEURONTIN) 300 MG capsule Take 1 capsule (300 mg total) by mouth 3 (three) times daily.270 capsule 0 Glucose Blood (BLOOD GLUCOSE TEST [...] (TAPAZOLE) 10 MG tablet Take 1 tablet (10 mg total) by mouth daily. 90 tablet 1 metoprolol tartrate (LOPRESSOR) 25 MG tablet Take 0.5 tablets (12.5 mg total) by mouth 2 (two) times daily. 90 tablet 3 omeprazole (PRILOSEC) 20 MG capsule Take 1 capsule by mouth once daily 90 capsule 1 potassium chloride CR (K-TAB) [...] for a total of 7mg 60 tablet 0 warfarin (COUMADIN) 5 MG tablet Take 1 tablet by mouth once daily 90 tablet 0 warfarin (COUMADIN) 6 MG tablet Take 1 tablet by mouth once daily 30 tablet 0 No current facility-administered medications for this visit. Chronic Care Management- Time Spent with Patient Time spent with patient (minutes): 10 Time spent performing chart review (minutes): 6 Total time (minutes): 16 CASEY JOHNSON RN I reviewed the patient's status and education provided by CASEY JOHNSON RN. I agree with the findings and recommendations made. Cosigned by Sanjeev Webster DO at 03/26/2023 12:40 PM TIMBER BUYER ER BUYER ER BUYER documented in this encounter Plan of Treatment Upcoming Encounters Date Type Department Care Team (Late st Contact Info) Description 04/14/2024 2:00 PM TIMBER BUYER Office Visit [facility]ty Care - [facility] [address] [facility], [address] [place] [address] Julio Pulido MD [address] [place] [address] documented as of this encounter Goals Goal Patient Goal Type Associated Problems Recent Progress Patient-Stated? Author Health - patient able to perform ADLs independently General On track(2023 9:49 AM CDT) Casey Corona RN Note: 12/17/23: Patient stated she is independent with ASL's. Establish Plan for Symptom Monitoring-CHF General On track(2023 11:36 AM TIMBER BUYER) Casey Corona RN Note: Patient will recognize [...] Symptom Monitoring-COPD General On track(2023 11:36 AM TIMBER BUYER) Casey Corona RN Note: Patient will recognize [...] Symptom Monitoring-DM General On track(2023 4:33 PM TIMBER BUYER) Casey Corona RN Note: Patient will manage [...] Symptom Monitoring-HTN General On track(2023 4:33 PM TIMBER BUYER) Casey Corona RN Note: Patient will monitor [...] pulmonary disease, unspecified COPD type ([facility])- Primary Chronic heart failure with preserved ejection fraction (HFpEF) ([facility]) Type 2 diabetes mellitus with stage 3b chronic kidney disease, without long-term current use of insulin ([facility]) documented in this encounter Additional Health Concerns Assessment Noted Time PHQ-9 Depression Total Score: 13 023 3:56 PM CDT documented as of this encounter Care Teams Tax Map Technician Relationship Specialty Start Date End Date Sanjeev Webster DO [address] [place] [id number] PCP - General FAMILY PRACTICE 09/25/20 [place] [address] [place] [address] Compliance Advisor (Ambulatory) REGISTERED NURSE 08/14/20 documented as of this encounter
--- OUTSIDE RECORDS SUMMARY | 2024-03-15 00:55 | XMS_ITS | Encounter Summary ---
Author Organization [facility] Address [facility] [place] [address] [place] [address] Care Team Providers Care Screwmaker Automatic Name Role Phone Dianne Johnson RN Unavailable [phone] Sanjeev Webster DO Primary Care Provider + Reason for Visit * Reason Onset Date Comments Appointment Reminder 04/06/2023 CT scan [place] eduled 04/07/23 at [facility] Appointment Request 04/06/2023 Encounter Details Date Type Department Care Team (Late st Contact Info) Description 04/06/2023 Telephone [facility] Family & Internal Medicine [facility] [address] [place] [address] Sanjeev Webster DO [address] [place] [address] Appointment Reminder (CT scan scheduled 04/07/23 at [facility]); Appointment Request Social History Tobacco Use Types [...] How often do you attend chur or mu-ism services? More than 4 times [...] Recorded Patient Health Questionnaire-2 Score 6 12/11/2022 [facility] - [...] Assessment Author Status Yes 08/26/2022 7:46 PM Indinaa Call RN Active * Do you have [...] Progress Notes * Dianne Johnson RN - 04/06/2023 1:59 PM CST Images from the original note were not included. Patient scheduled for CT scan at [facility] on 04/07/23 at 2:00 PM and appointment with on 04/09/23 at 1:40 PM. Contacted Centralized scheduling at [facility] to get instructions for CT scan scheduled tomorrow. Spoke to Edwin at Centralized scheduling department to confirm instructions. She is unaware of instructions. CC looked back at notes in chart. CC spoke to Evelia in Centralized scheduling on 03/05/[address]. [address] scan of brain for 04/07/23 arrive at 1:45 PM. NPO 2 hours prior. 04/06/23: Left message for patient to return CC phone call. 04/06/23: Contacted patient to confirm above appointment for CT scan and reviewed the following appointments with patient: CTOR OF PSYCHIATRY documented in this encounter Plan of Treatment Upcoming Encounters Date Type Department Care Team (Late st Contact Info) Description 04/14/2024 2:00 PM DIRECTOR OF PSYCHIATRY Office Visit [facility] Multispecialty Care - [facility] [address] [facility], [address] [place] [id number] Julio Pulido MD [address] [place] [address] documented as of this encounter Goals Goal Patient Goal Type Associated Problems Recent Progress Patient-Stated? Author Health - patient able to perform ADLs independently General On track(2023 9:49 AM CDT) Dianne Corona RN Note: 12/17/23: Patient stated she is independent with ASL's. Establish Plan for Symptom Monitoring-CHF General On track(2023 11:36 AM DIRECTOR OF PSYCHIATRY) Dianne Corona RN Note: Patient will recognize [...] General On track(2023 11:36 AM DIRECTOR OF PSYCHIATRY) Dianne Corona RN Note: Patient will recognize [...] General On track(2023 4:33 PM DIRECTOR OF PSYCHIATRY) Dianne Corona RN Note: Patient will manage [...] General On track(2023 4:33 PM DIRECTOR OF PSYCHIATRY) No Dianne Johnson, RN Note: Patient will [...] documented as of this encounter Care Teams Screwmaker Automatic Relationship Specialty Start Date End Date Sanjeev Webster DO [address] [place] [id number] PCP - General FAMILY PRACTICE 09/25/20 Dianne Johnson, RN [address] [place] [address] Electricity Trading Analyst (Ambulatory) REGISTERED NURSE 08/14/20 documented as of this encounter
--- OUTSIDE RECORDS SUMMARY | 2024-03-15 00:55 | XMS_ITS | Encounter Summary ---
Author Organization [facility] Address [facility]6 [facility] [place] [address] [place] [address] Care Team Providers Care Credit Counselor Name Role Phone Dianne Johnson RN Unavailable [phone] Sanjeev Webster DO Primary Care Provider + Encounter Details Date Type Department Care Team (Latest Contact Info) Description 04/06/2023 Travel Social History Tobacco Use Types Packs/Day [...] any clubs o r organizations such as mu-ism groups, unions, fraternal or athletic groups, or [...] Contact Info) Description 04/14/2024 2:00 PM PERSONAL SHOPPER Office Visit [facility] Multispecialty Care - [facility] [address] [facility], [address] [place] [address] Julio Pulido MD [address] [place] [address] documented as of this encounter Goals Goal Patient Goal Type Associated Problems Recent Progress Patient-Stated? Author Health - patient able to perform ADLs independently General On track(2023 9:49 AM CDT) Dianne Corona RN Note: 12/17/23: Patient stated she is independent with ASL's. Establish Plan for Symptom Monitoring-CHF General On track(2023 11:36 AM PERSONAL SHOPPER) Dianne Corona RN Note: Patient will recognize [...] Monitoring-COPD General On track(2023 11:36 AM PERSONAL SHOPPER) Dianne Corona RN Note: Patient will recognize [...] Monitoring-DM General On track(2023 4:33 PM PERSONAL SHOPPER) Dianne Corona RN Note: Patient will manage [...] Monitoring-HTN General On track(2023 4:33 PM PERSONAL SHOPPER) Dianne Corona, RN Note: Patient will monitor [...] documented as of this encounter Care Teams Credit Counselor Relationship Specialty Start Date End Date Sanjeev Webster DO [address] [place] [phone] PCP - General FAMILY PRACTICE 09/25/20 Dianne Johnson, RN [address] [place] [address] Dairy Associate (Ambulatory) REGISTERED NURSE 08/14/20 documented as of this encounter
--- OUTSIDE RECORDS SUMMARY | 2024-03-15 00:55 | XMS_ITS | Encounter Summary ---
Author Organization [facility] Address [id number] [place] [address] [place] [address] Care Team Providers Care Die Caster Name Role Phone Casey Johnson RN Unavailable [phone] Sanjeev Webster DO Primary Care Provider + Reason for Visit * Reason Onset Date Comments Care Management 04/16/2023 Encounter Details Date Type Department Care Team (Late st Contact Info) Description 04/16/[address] [facility] Family & Internal Medicine [address] [address] Casey Johnson, RN [address] [place] [address] Care Management Social History Tobacco [...] Recorded Patient Health Questionnaire-2 Score 6 12/11/2022 [facility] - [...] Progress Notes * Casey Johnson RN - 04/16/2023 7:09 AM CST Chronic Care Management: 04/16/23: Contacted Sidra with Centralized scheduling at [facility] to confirm if patient kept MRI of lumbarand MRI of Cervical WO con on 04/14/23. She could not find any documentation stating if patient no showed or not. CC will reach out to patient. Spoke to patient and she is unsure if she had MRI done on 04/14/23. Stated she doesn't think she had it done. Stating she did have some type of x-ray done and she has the films with her. CC will reach out to radiology department to find out. If she didn't have MRI's done patient agreeable for CC toreschedule appointment. She prefers around 10:00 am. 04/16/23: Contacted radiology department at [facility] and spoke to Paris. She stated patient no showed MRI on 04/14/23. Stated patient is scheduled for a CTA head on 05/12/23 and MRA head on 05/12/23. ordered MRA head and ordered CTA head. CC will send a message to asking him if he wants CTA head cx. 04/16/23: Contacted Sikhism at centralized scheduling to reschedule MRI of lumbar and cervical spine ordered by . Patient prefers around 10:00 am and not on a Thursday. Next opening is on 06/23/23 at 11:00 am. Arrive 15 minutes early at [facility] outpatient registration department at [address] [place] [address]. If unable to make this appointment contact centralized scheduling at [phone]. 04/16/23: Contacted patient regarding the above information. CC will send patient a letter with all of her future appointments thus far. Encouraged patient to keep letter on her refrigerator. She has a calendar in her kitchen and bedroom. She will write down appointments on calendar. 04/16/23: Received message back from to cx CTA head since patient getting MRA head. Contacted Sienna with centralized scheduling and cx appointment. Patient concerns or urgent matters that need addressed: Non identified during phone call. Patient Status: Contacted patient today. Denies issues with dizziness, worsening sob, or bilateral ankle swelling. Denies issues with CHF or COPD exacerbation s/s at this time. She cooks her own meals and declines MOW services. Stating she has to stay away from a lot of foods high in vitamin K, she needs a diabetic diet and low sodium. MOW doesn't always offer these meals. She eats two meals per day and healthy snacks in between. She is not checking her BS at home. Last A1C completed on 01/12/23. Results: 6.2. Denies any issues with hypo/hyper glycemia. Patient denies any issues with sleeping. Confirmed patient's appointment to get lab work done at PCP office on 04/20/23 at 1:00 PM. Patient denies any recent falls at this time or any issues to report. Discussed the upcoming appointment details with patient. CC sent her a letter about this appointment in January. Since then she's misplaced the letter. CC will send another letter out regarding her upcoming appointments and encouraged to keep on refrigerator. Appointment scheduled with (Class A Regional Truck Driver) at [address] [place], [facility] 04/29/23 at 2:00 PM. Please arrive 15 minutes early to register. If you need to reschedule; please contact 's office at [phone]. The following information sent to patient by mail today: Dear Radha Huynh: Per our discussion today, here is a list of the following upcoming appointments: Appointment scheduled with (Class A Regional Truck Driver) at [address] [place], [place] 04/29/23 at 2:00 PM. Please arrive 15 minutes early to register. If you need to reschedule; please contact 's office at [phone]. 2. MRA head ordered by (Neurosurgeon) at [facility] on 05/12/23 at 4:00 PM. Arrive 15 minutes early to register at the outpatient registration department. If unable to make this appointment; contact centralized scheduling at [phone]. 3. MRI Lumbar and Cervical ordered by at [facility] on 06/23/23 at 11:00 am. Arrive 15 minutes early at [facility] outpatient registration department at [address] [place] [address]. If unable to make this appointment contact centralized scheduling at [phone]. 4. Appointment scheduled with (Information Technology Auditor) at [facility] at [address] [place] [address]. on 09/04/23 at 1:00 PM. Please arrive 15 minutes early to register. If you need to reschedule; please contact 's office at [phone]. Please feel free to contact me at [phone] if you have any questions. Plan of Care: research coordinator will continue to follow up by [...] Future Appointments Date Time Provider Department Center [facility] 05/12/2023 4:00 PM [facility]LEX [facility] 06/23/2023 11:00 AM ALEX MRI [facility] 06/23/2023 12:00 PM ALEX MRI [facility] 09/04/2023 1:00 PM Sania Gomez MD [facility] 04/14/2024 2:00 PM Julio Pulido MD [facility] Quality care gaps: Health Maintenance Topic Date Due Kidney Health Evaluation Never done Annual Medicare Wellness Visit Never done Lipid Panel 08/29/2022 ASCVD LDL 08/29/2022 Zoster Vaccines (3 of 3) 02/17/2024 (Originally 01/06/2023) RSV Immunization or 60+ Years (1 - 1-dose 60+ series) 02/17/2024 (Originally 2004) COVID-19 Vaccine (2022-24 season) 2112 (Originally 11/07/2022) Hemoglobin A1C 07/13/2023 [...] test Chronic anticoagulation Coronary artery disease involving tat[place]k coronary artery of tatitlek heart without angina pectoris Dyspnea on exertion H/O mechanical aortic valve replacement Hypertensive heart disease with congestive heart failure ([facility]) ([facility]) LBBB (left bundle branch block) Myopathy VAZQUEZ (obstructive sleep apnea) Paroxysmal atrial flutter ([facility]) ([facility]) Benign hypertension with CKD (chronic kidney disease) stage III ([facility]) Memory deficits Hearing deficit, bilateral History of cataract extraction, unspecified laterality Vitamin D deficiency Hypercalcemia Chronic frontal sinusitis Constipation, unspecified constipation type Chronic bilateral low back pain without sciatica Iron deficiency anemia, unspecified iron deficiency anemia type Disorder of skin of trunk Anemia Body mass index (BMI) 31.0-31.9, adult 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[facility]) Benign hypertension with stage 3b chronic kidney disease ([facility]) Cobalamin deficiency Compression fracture of thoracic vertebra ([facility]) ([facility]) Depression Diabetic polyneuropathy ([facility]) ([facility]) Disorder of rotator cuff Diverticular disease Dysphagia Elevated troponin Gastroesophageal reflux disease without esophagitis Hyperlipidemia, unspecified hyperlipidemia type Vascular dementia ([facility]) Unknown and unspecified causes of morbidity Syncope, unspecified syncope type Wrist joint pain Respiratory illness Requires lifelong warfarin therapy Secondary hyperparathyroidism ([facility]) ([facility]) Presence of prosthetic heart valve Plantar fascial fibromatosis Peripheral neuropathy Parathyroid adenoma Polymyalgia rheumatica ([facility]) ([facility]) Osteoporosis Numbness Muscle cramps Closed stable burst fracture of sixth thoracic vertebra, initial encounter ([facility]) ([facility]) Chest pain Contusion of scalp Knee pain Localized, primary osteoarthritis Osteoarthritis of knee Traumatic closed displaced fracture of distal end of radius Shoulder joint pain Hyperlipidemia associated with type 2 diabetes mellitus ([facility]) ([facility]) PVD (peripheral vascular disease) ([facility]) Hematoma Anxiety Diastolic heart failure ([facility]) ([facility]) Internal hemorrhoids Leukoencephalopathy Major depression single episode, in partial remission ([facility]) Metacarpal bone fracture Mitral valve disorder Peripheral arterial occlusive disease ([facility]) Primary osteoarthritis involving multiple joints Vision loss COPD (chronic obstructive pulmonary disease) ([facility]) ([facility]) Diarrhea Drug-induced constipation H/O mechanical aortic valve replacement Age-related osteoporosis with current pathological fracture Care Management Physical deconditioning Chronic heart failure with preserved ejection fraction (HFpEF) ([facility]) ([facility]) Paroxysmal atrial fibrillation ([facility]) ([facility]) Hypertension associated with type 2 diabetes mellitus ([facility]) ([facility]) Encounter for prophylactic measures, unspecified Graves' disease Cirrhosis of liver without ascites, unspecified hepatic cirrhosis type ([facility]) ([facility]) Stage 3b chronic kidney disease ([facility]) OLIVE (acute kidney injury) ([facility]) Heart failure with mildly reduced ejection fraction (HFmrEF) ([facility]) ([facility]) Medications: Current Outpatient Medications Medication Sig Dispense [...] with Patient Time spent with patient (minutes): 37 (Comment: Time spent with patient, Centeralized scheduling and radiology department.) Time spent performing chart review (minutes): 12 Total time (minutes): 49 CASEY JOHNSON RN I reviewed the patient's status and education provided by CASYE JOHNSON RN. I agree with the findings and recommendations made. Cosigned by Sanjeve Webster DO at 04/16/2023 3:23 PM HATCHERY MANAGER HERY MANAGER HERY MANAGER documented in this encounter Plan of Treatment Upcoming Encounters Date Type Department Care Team (Late st Contact Info) Description 04/14/2024 2:00 PM HATCHERY MANAGER Office Visit [facility] - [facility] [address], [address] [place] [address] Julio Pulido MD [address] [place] [address] documented as of this encounter Goals Goal Patient Goal Type Associated Problems Recent Progress Patient-Stated? Author Health - patient able to perform ADLs independently General On track(2023 9:49 AM CDT) Casey Corona RN Note: 12/17/23: Patient stated she is independent with ASL's. Establish Plan for Symptom Monitoring-CHF General On track(2023 11:36 AM HATCHERY MANAGER) Casey Corona RN Note: Patient will recognize [...] Symptom Monitoring-COPD General On track(2023 11:36 AM HATCHERY MANAGER) Casey Corona RN Note: Patient will recognize [...] Symptom Monitoring-DM General On track(2023 4:33 PM HATCHERY MANAGER) Casey Corona RN Note: Patient will manage [...] Symptom Monitoring-HTN General On track(2023 4:33 PM HATCHERY MANAGER) Casey Corona RN Note: Patient will monitor [...] heart failure with preserved ejection fraction (HFpEF) ([facility])- Primary Type 2 diabetes mellitus with stage 3b chronic kidney disease, without long-term current use of insulin ([facility] H[facility]/HCC) Chronic obstructive pulmonary disease, unspecified COPD type (CMS/HCC HHS/HCC) documented in this encounter Additional Health Concerns Assessment Noted Time PHQ-9 Depression Total Score: 13 023 3:56 PM CDT documented as of this encounter Care Teams Die Caster Relationship Specialty Start Date End Date Sanjeev Webster DO [address] [place] [address] [phone] PCP - General FAMILY PRACTICE 09/25/20 Casey Johnson, RN [address] [place] [address] Munitions Handler Supervisor (Ambulatory) REGISTERED NURSE 08/14/20 documented as of this encounter
--- OUTSIDE RECORDS SUMMARY | 2024-03-15 00:55 | XMS_ITS | Encounter Summary ---
Author Organization [facility] Address [facility] [place], [place] [address] [place] [id number] Care Team Providers Care Crown And Bridge Technician Name Role Phone Dianne Johnson RN Unavailable [phone] Sanjeev Webster DO Primary Care Provider + Reason for Visit * Reason Onset Date Comments Information 04/07/2023 Encounter Details Date Type Department Care Team (Late st Contact Info) Description 04/07/2023 Telephone [facility] Family & Internal Medicine [id number] [place] [address] Sanjeev Webster DO [address] [place] [address] Information Social History Tobacco Use [...] Health Questionnaire-2 Score 6 12/11/2022 [facility] [...] Progress Notes * Dianne Johnson RN - 04/07/2023 3:18 PM CST Patient unable to get CTA head today due to kidney function. Informed patient to keep appointment with on 04/09/23 to get established per PCP. Thank you. ET REPAIRER documented in this encounter Plan of Treatment Upcoming Encounters Date Type Department Care Team (Late st Contact Info) Description 04/14/2024 2:00 PM CARPET REPAIRER Office Visit [facility] Multispecialty Care - [facility] [address] [facility], [address] [place] [id number] Julio Pulido MD [address] [place] [address] documented as of this encounter Goals Goal Patient Goal Type Associated Problems Recent Progress Patient-Stated? Author Health - patient able to perform ADLs independently General On track(2023 9:49 AM CDT) Dianne Corona RN Note: 12/17/23: Patient stated she is independent with ASL's. Establish Plan for Symptom Monitoring-CHF General On track(2023 11:36 AM CARPET REPAIRER) Dianne Corona RN Note: Patient will [...] Symptom Monitoring-COPD General On track(2023 11:36 AM CARPET REPAIRER) Dianne Corona RN Note: Patient will [...] Symptom Monitoring-DM General On track(2023 4:33 PM CARPET REPAIRER) Dianne Corona RN Note: Patient will [...] Symptom Monitoring-HTN General On track(2023 4:33 PM CARPET REPAIRER) Dianne Corona RN Note: Patient will monitor [...] documented as of this encounter Care Teams Crown And Bridge Technician Relationship Specialty Start Date End Date Sanjeev Webster DO [address] [place] [phone] PCP - General FAMILY PRACTICE 09/25/20 Dianne Johnson, RN [address] [place], [place] [address] Skein Dyer (Ambulatory) REGISTERED NURSE 08/14/20 documented as of this encounter
--- OUTSIDE RECORDS SUMMARY | 2024-03-15 00:55 | XMS_ITS | Encounter Summary ---
Author Organization [facility] Address [facility] [place] [address] [place] [address] Care Team Providers Care Embedded Systems Software Developer Name Role Phone Dianne Johnson RN Unavailable [phone] Sanjeev Webster DO Primary Care Provider + Reason for Referral * Imaging (Routine) - Closed Specialty Diagnoses / Procedures Referred By Contac t Referred To Contact RADIOLOGY Diagnoses Brain aneurysm (HHS/HCC) Procedures MRA HEAD WO CON Luly Pulido MD [address] [place] [address] Phone: tel: fax: Referral ID Status Reason Start Date Expiration Date Visits Re quested Visits Authorized [id number] Closed 05/06/2023 08/04/2023 1 1 LOP CUTTER MACHINE Reason for Visit * Reason Comments New Patient * Consultation/Treatment (Urgent) - Authorized Specialty Diagnoses / Procedures Referred By Contivett t Referred To Contact NEUROSURGERY Diagnoses Brain aneurysm (HHS/HCC) Procedures OFFICE/OUTPATIENT NEW LOW MDM 30-44 MINUTES OFFICE/OUTPT VISIT,NEW,LEVL IV OFFICE/OUTPT VISIT,NEW,LEVL V OFFICE/OUTPT VISIT,EST,LEVL III OFFICE/OUTPT VISIT,EST,LEVL IV OFFICE/OUTPT VISIT,EST,LEVL V Sanjeev Webster DO [address] [place] [address] Phone: tel: fax: Luly Pulido MD [address] [place] [address] Phone: tel: fax: Referral ID Status Reason Start Date Expiration Date Visits Requested Visits Authorized [id number] Authorized Consultatio n 04/03/2023 04/03/2024 12 12 Encounter Details Date Type Department Care Team (Late st Contact Info) Description 04/09/2023 1:40 PM SCALLOP CUTTER MACHINE Office Visit [facility] Multispecialty Care - [address], [address] [place] [address] Luly Pulido MD [address] [place] [address] [phone] New Patient Social History Tobacco Use Types Packs/Day Years [...] Sign Reading Time Taken Comments Blood Pressure 99/59 04/09/2023 1:32 PM SCALLOP CUTTER MACHINE Pulse 62 04/09/2023 1:32 PM SCALLOP CUTTER MACHINE Temperature 36.3 ??C (97.4 ??F) 04/09/2023 1:32 PM CS T Respiratory Rate - - Oxygen Saturation 94% 04/09/2023 1:32 PM SCALLOP CUTTER MACHINE Inhaled Oxygen Concentration - - Weight 81.6 kg (180 lb) 04/09/2023 1:32 PM SCALLOP CUTTER MACHINE Height 165.1 cm (5' 5 ) 04/09/2023 1:32 PM SCALLOP CUTTER MACHINE Body Mass Index 29.95 04/09/2023 1:32 PM SCALLOP CUTTER MACHINE documented in this encounter Functional Status * [...] documented in this encounter Progress Notes * Shaunna Hernandez LPN - 04/09/2023 1:40 PM CST PCP-- Sanjeev Webster, BMI-- 29.95 Occupation-- Retired Diabetic A1c-- 6.2 Date: 01/12/23 Co-morbidities--CAD, CHF CKD, HFmrEF Former smoker- 40 years No previous r/t sx Onset of pain-- Pt reported having bad DSOUZA in bilateral temporal region about a 2 months ago-- Intermittent Reports black floaters in RIGHT eye, reports memory issues- Has trouble remembering what she is doing at times-- Intermittent Reports unsteadiness, walks sideways at time when ambulated-- Has fallen 3 times before-- Uses walker and cane-- Constant Pt was to get imaging- Was not able to d/t compromised kidney function LOP CUTTER MACHINE * Luly Pulido MD - 04/09/2023 1:40 PM CST Neurosurgery Consultation Note History Radha Huynh is a 77-year-old female who presents with incidentally found brain aneurysm. Imaging was done for intermittent headache. She denies having any headache now. Denies weakness or numbness or loss of consciousness or seizures or history of stroke or brain hemorrhage. No family history of brain aneurysms. She is not a smoker. 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 Anxiety Atrial fibrillation with rapid ventricular response ([facility]/HCC) ([facility]) 08/22/2020 Atrial flutter ([facility]) ([facility]) Cataract Chronic anticoagulation due to mechanical heart valve Chronic pain Diabetes mellitus ([facility]) ([facility]) H/O mechanical aortic valve replacement 2003 Hypertension Kidney stone 02/03/2017 On amiodarone therapy 05/21/2021 Past Surgical History: Procedure Laterality Date REPAIR HEART WOUND Social History Tobacco Use Smoking status: Never Passive exposure: Past Smokeless tobacco: Never Tobacco comments: non smoker Vaping Use Vaping Use: Never used Substance Use Topics Alcohol use: Not Currently Drug use: Yes Types: Hydrocodone Comment: chronic pain Family History Problem Relation Name Age of Onset Heart Father Diabetes Father Heart Mother No outpatient medications have been marked as taking for the 04/09/23 encounter (Office Visit) with Luly Pulido MD. Review of patient's allergies indicates: Allergen Reactions Atorvastatin Leg Pain Leg pain/cramps. Resolved after stopping. Tape Contact Dermatitis Bacitracin Other (see comment) Benzalkonium Other (see comment) Gramicidin Other (see comment) Hydrocortisone Other (see comment) Neomycin Other (see comment) Polymyxin B Other (see comment) Rosuvastatin Leg Pain Cramping in legs Physical Exam Filed Vitals: 04/09/23 1332 BP: 99/59 Pulse: 62 Temp: 97.4 ??F (36.3 ??C) SpO2: 94% Weight: 81.6 kg (180 lb) Height: 1.651 m (5' 5 ) Physical Exam: Alert and oriented x3 No pronator drift No facial asymmetry Full extraocular movements Facial sensation is intact to light touch Good strength in all 4 extremities Imaging: I reviewed the CTA head from 2021 and the principal findings are 4 mm right MCA bifurcation aneurysm. Creatinine from today's BMP is 1.6 Assessment Encounter Diagnose(s) ICD-10-CM SNOMED CT(R) 1. Brain aneurysm ([facility]) I67.1 INTRACRANIAL ANEURYSM Plan I explained the patient imaging findings. We discussed management options. We discussed the naturalhistory of brain aneurysms that are not ruptured of this size in this location. I recommend conservative treatment with serial imaging. She agreed. Given her elevated creatinine, I will request MRA without contrast. If MRA is stable, follow-up in 1 year. I spent 50 minutes today reviewing the patient's medical record, obtaining history, performing an exam, reviewing imaging, ordering medications, tests, and/or procedures, documenting in the medical record, counseling and educating the patient/family/caregiver and coordination of care. DENICE PULIDO MD LOP CUTTER MACHINE documented in this encounter Plan of Treatment Upcoming Encounters Date Type Department Care Team (Late st Contact Info) Description 04/14/2024 2:00 PM SCALLOP CUTTER MACHINE Office Visit [facility] Multispecialty Care - [facility] [address] [facility], [address] [place] [address] Luly Pulido MD [address] [place] [address] documented as of this encounter Goals Goal Patient Goal Type Associated Problems Recent Progress Patient-Stated? Author Health - patient able to perform ADLs independently General On track(2023 9:49 AM CDT) Dianne Corona, DALE Note: 12/17/23: Patient stated she is independent with ASL's. Establish Plan for Symptom Monitoring-CHF General On track(2023 11:36 AM SCALLOP CUTTER MACHINE) Dianne Corona, DALE Note: Patient will recognize [...] Symptom Monitoring-COPD General On track(2023 11:36 AM SCALLOP CUTTER MACHINE) Dianne Corona, RN Note: Patient will recognize [...] Symptom Monitoring-DM General On track(2023 4:33 PM SCALLOP CUTTER MACHINE) Dianne Corona RN Note: Patient will manage [...] Symptom Monitoring-HTN General On track(2023 4:33 PM SCALLOP CUTTER MACHINE) Dianne Corona RN Note: Patient will monitor B/P several times per week , record readings and report to physician or CC if B/P consistently >130/80 Take your medications as prescribed. Follow up with your provider as scheduled. Take your blood pressure at least several times a week if able. documented as of this encounter Results * MRA HEAD WO CON (05/12/2023 4:45 PM SCALLOP CUTTER MACHINE) Anatomical Region Laterality Modality Head Magnetic Resonan ce 05/14/2023 7:29 AM SCALLOP CUTTER MACHINE Impressions 05/14/2023 7:33 AM SCALLOP CUTTER MACHINE IMPRESSION: 1. 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 2. 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 ?? 3. origin left posterior cerebral artery. Referred By: LULY PULIDO Interpreted By: James Frank MD, 05/14/2023 7:29 AM Narrative 05/14/2023 7:33 AM SCALLOP CUTTER MACHINE EXAMINATION:Brain MRA without contrast 04/13/2023 INDICATION:Dizziness, untreated cerebral aneurysm TECHNIQUE: Noncontrast enhanced 3-D time of flight MRA images of paimi[place] of Hussein were acquired in 3-D maximum [...] 3-D time of flight MRA images of paimi[place] ofWillis were acquired in 3-D maximum intensity [...] this encounter Visit Diagnoses Diagnosis Brain aneurysm (HHS/HCC)- Primary Cerebral aneurysm, nonruptured Brain aneurysm (HHS/HCC) Cerebral aneurysm, nonruptured documented in this encounter Additional Health Concerns Assessment Noted Time PHQ-9 Depression Total Score: 13 023 3:56 PM CDT documented as of this encounter Care Teams Embedded Systems Software Developer Relationship Specialty Start Date End Date Sanjeev Webster DO [address] [place] [address] PCP - General FAMILY PRACTICE 09/25/20 Dianne Johnson, RN [address] [place] [address] Analytical Lab Technician (Ambulatory) REGISTERED NURSE 08/14/20 documented as of this encounter
--- OUTSIDE RECORDS SUMMARY | 2024-03-15 00:55 | XMS_ITS | Encounter Summary ---
Author Organization [facility] Address [facility]6 [facility] [place] [address] [place] [address] Care Team Providers Care Operations Support Professionals Name Role Phone Dianne Johnson RN Unavailable [phone] Sanjeev Webster DO Primary Care Provider + Reason for Visit * Reason Comments Allied Health Visit inr Encounter Details Date Type Department Care Team (Latest Contact Info) Description 03/27/2023 1:00 PM SUPERVISOR MOLD SHOP Allied Health/Nurse Visit [facility] Family [facility] Internal Medicine [facility] [address] [place] [address] Sanjeev Webster DO [address] [place] [address] Allied Health Visit (inr) Social History Tobacco Use Types Packs/Day Years [...] often do you attend chur ch or presybeterian services? More than 4 times per year [...] Progress Notes * Natalee Brown RN - 03/27/2023 1:00 PM CST Patient in today for INR. Patient tolerated well. Advised patient not to take medication until she hears back from this office. Patient also reported having no s/s of bleeding and aware of red flag symptoms to go to ED for. Opportunity given for all questions to be answered, no further needs voicedat this time. LL-03/27/23 RVISOR MOLD SHOP documented in this encounter Plan of Treatment Upcoming Encounters Date Type Department Care Team (Late st Contact Info) Description 04/14/2024 2:00 PM SUPERVISOR MOLD SHOP [facility] - [facility] [address] [facility], [address] [place] [id number] Julio Pulido MD [address] [place] [address] documented as of this encounter Goals Goal Patient Goal Type Associated Problems Recent Progress Patient-Stated? Author Health - patient able to perform ADLs independently General On track(2023 9:49 AM CDT) Dianne Corona, DALE Note: 12/17/23: Patient stated she is independent with ASL's. Establish Plan for Symptom Monitoring-CHF General On track(2023 11:36 AM SUPERVISOR MOLD SHOP) Dianne Corona, RN Note: Patient will recognize [...] Monitoring-COPD General On track(2023 11:36 AM SUPERVISOR MOLD SHOP) Dianne Corona RN Note: Patient will recognize [...] Monitoring-DM General On track(2023 4:33 PM SUPERVISOR MOLD SHOP) Dianne Corona RN Note: Patient will manage [...] Monitoring-HTN General On track(2023 4:33 PM SUPERVISOR MOLD SHOP) Dianne Corona RN Note: Patient will monitor [...] Date/Time Associated Diagnosis Comments COLLECT.CAPILLARY (FNGR,HEEL,EAR) Routine 03/27/2023 1:18 PM SUPERVISOR MOLD SHOP Chronic anticoagulation PROTHROMBIN TIME, FINGERSTICK Routine 03/27/2023 Chronic anticoagulation documented in this encounter Results * PROTIME/INR, FINGERSTICK (03/27/2023) PROTIME WHOLE BLOOD 5.4 [facility] 03/27/2023 us Sanjeev Webster DO LABORATORY Final Re sult [facility] [address] [place] [address], documented in this encounter Visit Diagnoses Diagnosis Chronic anticoagulation- Primary Encounter for long-term (current) use of anticoagulants documented in this encounter Additional Health Concerns Assessment Noted Time PHQ-9 Depression Total Score: 13 023 3:56 PM CDT documented as of this encounter Care Teams Operations Support Professionals Relationship Specialty Start Date End Date Sanjeev Webster DO [address] [place] [address] PCP - General FAMILY PRACTICE 09/25/20 Dianne Johnson, RN [address] [place] [address] Lawn Mower Operator (Ambulatory) REGISTERED NURSE 08/14/20 documented as of this encounter
--- OUTSIDE RECORDS SUMMARY | 2024-03-15 00:55 | XMS_ITS | Encounter Summary ---
Author Organization [facility] Address [facility] [place] [address] [place] [address] Care Team Providers Care Auctioneer Tobacco Name Role Phone Dianne Johnson RN Unavailable [phone] Sanjeev Webster DO Primary Care Provider + Reason for Visit * Reason Onset Date Comments Follow Up Call 04/16/2023 Encounter Details Date Type Department Care Team (Late st Contact Info) Description 04/16/2023 Telephone [facility] Family & Internal Medicine [id number] [place] [address] Sanjeev Webster DO [address] [place] [address] Follow Up Call Social History [...] Progress Notes * Sanjeev Webster DO - 04/16/2023 9:46 AM CST Can cancel CTA head then. HEALTH REGISTERED NURSE * Dianne Johnson RN - 04/16/2023 9:23 AM CST Seen by on 04/09/23. See plan below. Scheduled for MRA head ordered by and CTA headordered by you on 05/12/23. Should CTA head be cx? Plan I explained the patient imaging findings. We discussed management options. We discussed the naturalhistory of brain aneurysms that are not ruptured of this size in this location. I recommend conservative treatment with serial imaging. She agreed. Given her elevated creatinine, I will request MRA without contrast. If MRA is stable, follow-up in 1 year. HEALTH REGISTERED NURSE documented in this encounter Plan of Treatment Upcoming Encounters Date Type Department Care Team (Late st Contact Info) Description 04/14/2024 2:00 PM HOME HEALTH REGISTERED NURSE Office Visit [facility] Multispecialty Care - [facility] [address] [facility], [address] [place] [phone] Julio Pulido MD [address] [place] [address] documented as of this encounter Goals Goal Patient Goal Type Associated Problems Recent Progress Patient-Stated? Author Health - patient able to perform ADLs independently General On track(2023 9:49 AM CDT) Dianne Corona RN Note: 12/17/23: Patient stated she is independent with ASL's. Establish Plan for Symptom Monitoring-CHF General On track(2023 11:36 AM HOME HEALTH REGISTERED NURSE) Dianne Corona RN Note: Patient will [...] Symptom Monitoring-COPD General On track(2023 11:36 AM HOME HEALTH REGISTERED NURSE) Dianne Corona RN Note: Patient will [...] Symptom Monitoring-DM General On track(2023 4:33 PM HOME HEALTH REGISTERED NURSE) Dianne Corona RN Note: Patient will manage [...] Symptom Monitoring-HTN General On track(2023 4:33 PM HOME HEALTH REGISTERED NURSE) No Dianne Johnson RN Note: Patient will [...] documented as of this encounter Care Teams Auctioneer Tobacco Relationship Specialty Start Date End Date Sanjeev Webster DO [address] [place] [address] PCP - General FAMILY PRACTICE 09/25/20 Dianne Johnson, RN [address] [place] [address] Green Chainer (Ambulatory) REGISTERED NURSE 08/14/20 documented as of this encounter
--- OUTSIDE RECORDS SUMMARY | 2024-03-15 00:55 | XMS_ITS | Encounter Summary ---
Author Organization [facility] Address [facility]6 [facility] [place] [address] [place] [address] Care Team Providers Care Drawbench Operator Helper Name Role Phone Dianne Johnson RN Unavailable [phone] Sanjeev Webster DO Primary Care Provider + Reason for Visit * Reason Onset Date Comments Lab Results 03/23/2023 Encounter Details Date Type Department Care Team (Late st Contact Info) Description 03/23/2023 Telephone [facility] Family Medicine - [place] [address] [place] [address] Jason Marcano II, MD [address] [place] [address] Lab Results Social History Tobacco Use Types [...] Recorded Patient Health Questionnaire-2 Score 6 12/11/2022 [facility] [...] Author Status No 08/26/2022 7:46 PM [place] Clal RN Active * Are you blind or [...] Author Status No 08/26/2022 7:46 PM CDT Indinaa Gunderson RN Active documented as of this encounter Mental Status * Because of a physical, mental, or emotional condition, do you have serious difficulty concentrating, remembering, or making decisions? Answer Entry Date Author Status No 08/26/2022 7:46 PM CDT [place] Gunderson RN Active documented in this encounter Progress Notes * Jason Marcano II, MD - 03/23/2023 5:23 PM CST 77-year-old female on chronic anticoagulation who earlier today had an INR in clinic that was elevated. Confirmation was sent to the lab. On-call physician was contacted with critical value INR of 7.0. Chart was reviewed. Patient is holding Coumadin for 2 days and will return to clinic for a recheck on the . Patient was called and this plan was confirmed. Patient had no questions. Patient plans to eat a small salad this evening also. NISTRATIVE SERVICES ASSISTANT documented in this encounter Plan of Treatment Upcoming Encounters Date Type Department Care Team (Late st Contact Info) Description 04/14/2024 2:00 PM ADMINISTRATIVE SERVICES ASSISTANT Office Visit [facility] Multispecialty Care - [facility] 3 [facility], [address] [place] [address] Julio Pulido MD [address] [place] [address] documented as of this encounter Goals Goal Patient Goal Type Associated Problems Recent Progress Patient-Stated? Author Health - patient able to perform ADLs independently General On track(2023 9:49 AM CDT) Dianne Corona RN Note: 12/17/23: Patient stated she is independent with ASL's. Establish Plan for Symptom Monitoring-CHF General On track(2023 11:36 AM ADMINISTRATIVE SERVICES ASSISTANT) Dianne Corona RN Note: Patient will [...] Symptom Monitoring-COPD General On track(2023 11:36 AM ADMINISTRATIVE SERVICES ASSISTANT) Dianne Corona RN Note: Patient will [...] Symptom Monitoring-DM General On track(2023 4:33 PM ADMINISTRATIVE SERVICES ASSISTANT) Dianne Corona RN Note: Patient will [...] Symptom Monitoring-HTN General On track(2023 4:33 PM ADMINISTRATIVE SERVICES ASSISTANT) No Dianne Johnson, RN Note: Patient [...] of this encounter Care Teams Drawbench Operator Helper Relationship Specialty Start Date End Date Sanjeev Webster DO [address] [place] [address] PCP - General FAMILY PRACTICE 09/25/20 Dianne Johnson, RN [address] [place] [address] Marriage Counselor (Ambulatory) REGISTERED NURSE 08/14/20 documented as of this encounter
--- OUTSIDE RECORDS SUMMARY | 2024-03-15 00:55 | XMS_ITS | Encounter Summary ---
Author Organization [facility] Address [facility]6 [facility] [place] [place] [address] [place] [address] Care Team Providers Care Fur Examiner Name Role Phone Dianne Johnson RN Unavailable [phone] Sanjeev Webster DO Primary Care Provider + Reason for Visit * Reason Onset Date Comments Lab Results 04/21/2023 Encounter Details Date Type Department Care Team (Late st Contact Info) Description 04/21/2023 Telephone [facility] Family & Internal Medicine [place] [place] [address] Sanjeev Webster DO [address] [place] [address] Lab Results Social History Tobacco [...] Progress Notes * Latha Ring MA - 04/21/2023 4:25 PM CST Patient informed and v/u of instructions. She asked that I contact her daughter in law, Izzy with results as well. Izzy contact and v/u of information. MACHINE OPERATOR * Latha Ring MA - 04/21/2023 4:17 PM CST ----- Message from Sanjeev Webster DO sent at 04/21/2023 8:32 AM BUN MACHINE OPERATOR ----- PT/INR is lower now; pt was on 8 mg Thursday- Thursday and 7 mg Thursday - previously. Let's return to this and have her recheck in 1 week. BMP shows improvement from previous testing and will recheck in 1-2 months. MACHINE OPERATOR * Lashawn Vega - 04/21/2023 3:19 PM CST Pt is wanting results of recent labs that were done MACHINE OPERATOR documented in this encounter Plan of Treatment Upcoming Encounters Date Type Department Care Team (Late st Contact Info) Description 04/14/2024 2:00 PM BUN MACHINE OPERATOR Office Visit [facility] Multispecialty Care - [facility] 3 [facility], [address] [place] [address] Julio Pulido MD [address] [place] [address] documented as of this encounter Goals Goal Patient Goal Type Associated Problems Recent Progress Patient-Stated? Author Health - patient able to perform ADLs independently General On track(2023 9:49 AM CDT) Dianne Corona RN Note: 12/17/23: Patient stated she is independent with ASL's. Establish Plan for Symptom Monitoring-CHF General On track(2023 11:36 AM BUN MACHINE OPERATOR) Dianne Corona RN Note: Patient [...] Symptom Monitoring-COPD General On track(2023 11:36 AM BUN MACHINE OPERATOR) Dianne Corona RN Note: Patient [...] Symptom Monitoring-DM General On track(2023 4:33 PM BUN MACHINE OPERATOR) Dianne Corona RN Note: Patient [...] Symptom Monitoring-HTN General On track(2023 4:33 PM BUN MACHINE OPERATOR) No Dianne Johnson RN Note: [...] documented as of this encounter Care Teams Fur Examiner Relationship Specialty Start Date End Date Sanjeev Webster DO [address] [place] [address] PCP - General FAMILY PRACTICE 09/25/20 Dianne Johnson, RN [address] [place] [address] Geographic Information System Surveyor (Ambulatory) REGISTERED NURSE 08/14/20 documented as of this encounter
--- OUTSIDE RECORDS SUMMARY | 2024-03-15 00:55 | XMS_ITS | Encounter Summary ---
Author Organization [facility] Address [facility] [place] [address] [place] [address] Care Team Providers Care Cloth Worker Name Role Phone Dianne Johnson RN Unavailable [phone] Sanjeev Webster DO Primary Care Provider + Reason for Visit * Reason Onset Date Comments Results 04/28/2023 Today's INR resu lts Refill Request 04/28/2023 Wafarin 1mg Encounter Details Date Type Department Care Team (Late st Contact Info) Description 04/28/2023 Telephone [facility] Family & Internal [facility] [address] [place] [address] Sanjeev Webster DO [address] [place] [address] Results (Today's INR results); Refill Request (Wafarin 1mg) Social History Tobacco Use Types Packs/Day Years [...] Recorded Patient Health Questionnaire-2 Score 6 12/11/2022 [facility] [place] of Occupat ional Health - Occupational Stress [...] Progress Notes * Sanjeev Webster DO - 04/28/2023 4:16 PM CST PT/INR is improving. Please continue at previous dosing. Sent requested warfarin. Recheck PT/INR in1 week. SALES SPECIALIST * Gloria Patel MA - 04/28/2023 2:53 PM CST Refill request received from Daughter-Izzy Martinez. Would like to know the patients INR results and if any changes in her Warfarin is needed. If not then needs the rx sent out today-is out of her Warfarin 1 mg. /LA/RMA Pharmacy: [facility] [address] [place] [address] [place] [address] [[id number]] SALES SPECIALIST documented in this encounter Plan of Treatment Upcoming Encounters Date Type Department Care Team (Late st Contact Info) Description 04/14/2024 2:00 PM TELESALES SPECIALIST Office Visit [facility] Medical Group Multispecialty Care - [facility] 3 [facility], [address] [place] [phone] Julio Pulido MD [address] [place], [place] [id number] documented as of this encounter Goals Goal Patient Goal Type Associated Problems Recent Progress Patient-Stated? Author Health - patient able to perform ADLs independently General On track(2023 9:49 AM CDT) Dianne Corona RN Note: 12/17/23: Patient stated she is independent with ASL's. Establish Plan for Symptom Monitoring-CHF General On track(2023 11:36 AM TELESALES SPECIALIST) Dianne Corona RN Note: Patient will [...] Monitoring-COPD General On track(2023 11:36 AM TELESALES SPECIALIST) Dianne Corona RN Note: Patient will [...] Monitoring-DM General On track(2023 4:33 PM TELESALES SPECIALIST) Dianne Corona RN Note: Patient will [...] Monitoring-HTN General On track(2023 4:33 PM TELESALES SPECIALIST) Dianne Corona RN Note: Patient will monitor B/P several times per week , record readings and report to physician or CC if B/P consistently >130/80 Take your medications as prescribed. Follow up with your provider as scheduled. Take your blood pressure at least several times a week if able. documented as of this encounter Visit Diagnoses Diagnosis Chronic anticoagulation Encounter for long-term (current) use of anticoagulants documented in this encounter Additional Health Concerns Assessment Noted Time PHQ-9 Depression Total Score: 13 023 3:56 PM CDT documented as of this encounter Care Teams Cloth Worker Relationship Specialty Start Date End Date Sanjeev Webster DO [address] [place] [id number] PCP - General FAMILY PRACTICE 09/25/20 Dianne Johnson, RN [address] [place] [address] Self Rising Flour Mixer (Ambulatory) REGISTERED NURSE 08/14/20 documented as of this encounter
--- OUTSIDE RECORDS SUMMARY | 2024-03-15 00:55 | XMS_ITS | Encounter Summary ---
Author Organization [facility] Address [facility] [facility] [place] [address] [place] [address] Care Team Providers Care Radiographic Technologist Name Role Phone Dianne Johnson RN Unavailable [phone] Sanjeev Webster DO Primary Care Provider + Reason for Visit * Reason Comments Anticoagulation Encounter Details Date Type Department Care Team (Late st Contact Info) Description 03/25/2023 1:00 PM HUMIDIFIER OPERATOR Allied Health/Nurse Visit [facility] Family & Internal Medicine [place] [id number] [place] [address] Sanjeev Webster DO [facility] [place] [address] Anticoagulation Social History Tobacco Use [...] st Contact Info) Description 04/14/2024 2:00 PM HUMIDIFIER OPERATOR Office Visit [facility] Multispecialty Care - [facility] 3 [facility], [address] [place] [phone] Julio Pulido MD 3 [place] [address] documented as of this encounter Goals Goal Patient Goal Type Associated Problems Recent Progress Patient-Stated? Author Health - patient able to perform ADLs independently General On track(2023 9:49 AM CDT) Dianne Corona RN Note: 12/17/23: Patient stated she is independent with ASL's. Establish Plan for Symptom Monitoring-CHF General On track(2023 11:36 AM HUMIDIFIER OPERATOR) Dianne Corona RN Note: Patient will [...] Symptom Monitoring-COPD General On track(2023 11:36 AM HUMIDIFIER OPERATOR) Dianne Corona RN Note: Patient will [...] Symptom Monitoring-DM General On track(2023 4:33 PM HUMIDIFIER OPERATOR) Dianne Corona RN Note: Patient will [...] Symptom Monitoring-HTN General On track(2023 4:33 PM HUMIDIFIER OPERATOR) Dianne Corona RN Note: Patient will [...] Date/Time Associated Diagnosis Comments COLLECT.CAPILLARY (FNGR,HEEL,EAR) Routine 03/25/2023 1:09 PM HUMIDIFIER OPERATOR Chronic anticoagulation PROTHROMBIN TIME, FINGERSTICK Routine 03/25/2023 Chronic anticoagulation documented in this encounter Results * PROTIME/INR, FINGERSTICK (03/25/2023) INR WHOLE BLOOD 6.10 [facility] Comment:Pt informed repeat F riday 03/25/2023 us Sanjeev Webster DO LABORATORY Final Re sult [facility] [address] [place] [address], documented in this encounter Visit Diagnoses Diagnosis Chronic anticoagulation- Primary Encounter for long-term (current) use of anticoagulants Constipation Unspecified constipation documented in this encounter Additional Health Concerns Assessment Noted Time PHQ-9 Depression Total Score: 13 023 3:56 PM CDT documented as of this encounter Care Teams Radiographic Technologist Relationship Specialty Start Date End Date Sanjeev Webster DO [address] [place] [address] PCP - General FAMILY PRACTICE 09/25/20 Dianne Johnson, RN [address] [place], [place] [phone] Crew Chief (Ambulatory) REGISTERED NURSE 08/14/20 documented as of this encounter
--- OUTSIDE RECORDS SUMMARY | 2024-03-15 00:55 | XMS_ITS | Encounter Summary ---
Author Organization [facility] Address [facility] [place] [address] [place] [address] Care Team Providers Care Heel Stainer Name Role Phone Dianne Johnson RN Unavailable [phone] Sanjeev Webster DO Primary Care Provider + Encounter Details Date Type Department Care Team (Latest Contact Info) Description 04/10/2023 Scan HEALTH INFO SRVCS Scanned, Doc Med [...] often do you attend chur ch or jehovah's witness services? More than 4 [...] Recorded Patient Health Questionnaire-2 Score 6 12/11/2022 [facility] of Occupat ional Health - [...] st Contact Info) Description 04/14/2024 2:00 PM SOCIAL WORKER PALLIATIVE CARE Office Visit [facility] Medical Group Multispecialty Care - [facility] 3 [facility], [address] [place] [address] Julio Pulido MD 3 [place] [address] documented as of this encounter Goals Goal Patient Goal Type Associated Problems Recent Progress Patient-Stated? Author Health - patient able to perform ADLs independently General On track(2023 9:49 AM CDT) Dianne Corona RN Note: 12/17/23: Patient stated she is independent with ASL's. Establish Plan for Symptom Monitoring-CHF General On track(2023 11:36 AM SOCIAL WORKER PALLIATIVE CARE) Dianne Corona RN Note: Patient will recognize [...] Symptom Monitoring-COPD General On track(2023 11:36 AM SOCIAL WORKER PALLIATIVE CARE) Dianne Corona RN Note: Patient will recognize [...] Symptom Monitoring-DM General On track(2023 4:33 PM SOCIAL WORKER PALLIATIVE CARE) Dianne Corona, RN Note: Patient will manage [...] Symptom Monitoring-HTN General On track(2023 4:33 PM SOCIAL WORKER PALLIATIVE CARE) Dinane Corona, RN Note: Patient will monitor B/P [...] documented as of this encounter Care Teams Heel Stainer Relationship Specialty Start Date End Date Sanjeev Webster DO [address] [place] [id number] PCP - General FAMILY PRACTICE 09/25/20 Dianne Johnson RN [address] [place] [address] Youth Pastor (Ambulatory) REGISTERED NURSE 6/8/21 documented as of this encounter
--- OUTSIDE RECORDS SUMMARY | 2024-03-15 00:55 | XMS_ITS | Encounter Summary ---
Author Organization [facility] Address [facility] [place] [address] [place] [address] Care Team Providers Care Direct Entry Midwife Name Role Phone Dianne Johnson RN Unavailable [phone] Sanjeev Webster DO Primary Care Provider + Encounter Details Date Type Department Care Team (Latest Contact Info) Description 04/01/2023 Travel Social History Tobacco Use Types Packs/Day [...] How often do you attend chur or bahai services? More than 4 times per year [...] Patient Health Questionnaire-2 Score 6 12/11/2022 [facility] of Occupat ional Health - Occupational [...] Contact Info) Description 04/14/2024 2:00 PM HOME ENERGY CONSULTANT Office Visit [facility] Medical Group Multispecialty Care - [facility] 3 [facility], [address] [place] [address] Julio Pulido MD 3 [place] [address] documented as of this encounter Goals Goal Patient Goal Type Associated Problems Recent Progress Patient-Stated? Author Health - patient able to perform ADLs independently General On track(2023 9:49 AM CDT) Dianne Corona RN Note: 12/17/23: Patient stated she is independent with ASL's. Establish Plan for Symptom Monitoring-CHF General On track(2023 11:36 AM HOME ENERGY CONSULTANT) Dianne Corona RN Note: Patient will [...] Monitoring-COPD General On track(2023 11:36 AM HOME ENERGY CONSULTANT) Dianne Corona RN Note: Patient will [...] Monitoring-DM General On track(2023 4:33 PM HOME ENERGY CONSULTANT) Dianne Corona RN Note: Patient will [...] Monitoring-HTN General On track(2023 4:33 PM HOME ENERGY CONSULTANT) Dianne Corona, RN Note: Patient will [...] documented as of this encounter Care Teams Direct Entry Midwife Relationship Specialty Start Date End Date Sanjeev Webster DO [address] [place] [id number] PCP - General FAMILY PRACTICE 09/25/20 Dianne Johnson, RN [address] [place] [address] Beverage Manager (Ambulatory) REGISTERED NURSE 08/14/20 documented as of this encounter
--- OUTSIDE RECORDS SUMMARY | 2024-03-15 00:55 | XMS_ITS | Encounter Summary ---
Author Organization [facility] Address [facility] [facility] [place] [address] [place] [address] Care Team Providers Care Lsat Instructor Name Role Phone Casey Johnson RN Unavailable [phone] Sanjeev Webster DO Primary Care Provider + Reason for Visit * Reason Onset Date Comments Care Management 04/29/2023 Encounter Details Date Type Department Care Team (Late st Contact Info) Description 04/29/2023 Patient Outreach [facility] Medical Group Family & Internal Medicine [address] [address] Casey Jhonson, RN [address] [place] [address] Care Management Social History Tobacco [...] Progress Notes * Casey Johnson RN - 04/29/2023 10:32 AM CST Chronic Care Management: Patient concerns or urgent matters that need addressed: Non identified during call. Patient Status: Patient called stating the heal on her right foot is sore. She wore brand new slippers and the backof the slippers are hard. Stated it's taking her a while to get around. She denies needing to be seen. Confirmed appointment with ([employer] Developer) at [address] [facility] [address] [facility] JEAN [address] [place] [address] 04/29/23 at 2:00 PM. Please arrive 15 minutes early to register. Informed patient the importance of keeping this appointment today since it's hard to get into [employer] for several months. Patient stated she will keep appointment. She is requesting directions. CC will reach out to 's office and get directions. Patient verbalizes understanding. 04/29/23: Attempted to contact 's office multiple times with no answer. It goes directly to mail box is full. Looked up directions from patient's home to 's office. Informed patient to stay on [address], pass [employer] and after [employer] make a right on [address] Kayleen Ko on the right and down the road on the left hand side is 's office. Encouraged patient to contact CC if she is unable to find office. Encouraged patient to keep this appointment since it takes months to be seen. Patient verbalizes understanding. Plan of Care: recruiting coordinator will continue to follow up by [...] Provider Department Center 05/12/2023 4:00 PM ALEX [facility] 06/23/2023 11:00 AM ALEX MRI ([facility]) [facility] 06/23/2023 12:00 PM ALEX MRI [facility]) [facility] 09/04/2023 1:00 PM Sania Gomez MD [facility] 04/14/2024 2:00 PM MD NALINI Gutierrez [facility] Quality care gaps: Health Maintenance [...] test Chronic anticoagulation Coronary artery disease involving chevak coronary artery of chevak heart without angina pectoris Dyspnea on exertion H/O mechanical aortic valve replacement Hypertensive heart disease with congestive heart failure ([facility]) ([facility]) LBBB (left bundle branch block) Myopathy VAZQUEZ (obstructive sleep apnea) Paroxysmal atrial flutter ([facility]) ([facility]) Benign hypertension with CKD (chronic kidney disease) stage III ([facility]) Memory deficits Hearing deficit, bilateral History of cataract extraction, unspecified laterality Vitamin D deficiency Hypercalcemia Chronic frontal sinusitis Constipation, unspecified constipation type Chronic bilateral low back pain without sciatica Iron deficiency anemia, unspecified iron deficiency anemia type Disorder of skin of trunk Anemia Body mass index (BMI) 31.0-31.9, adult 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[facility]) Benign hypertension with stage 3b chronic kidney disease ([facility]) Cobalamin deficiency Compression fracture of thoracic vertebra ([facility]) ([facility]) Depression Diabetic polyneuropathy ([facility]) ([facility]) Disorder of rotator cuff Diverticular disease Dysphagia Elevated troponin Gastroesophageal reflux disease without esophagitis Hyperlipidemia, unspecified hyperlipidemia type Vascular dementia ([facility]) Unknown and unspecified causes of morbidity Syncope, unspecified syncope type Wrist joint pain Respiratory illness Requires lifelong warfarin therapy Secondary hyperparathyroidism ([facility]) ([facility]) Presence of prosthetic heart valve Plantar fascial fibromatosis Peripheral neuropathy Parathyroid adenoma Polymyalgia rheumatica ([facility]) ([facility]) Osteoporosis Numbness Muscle cramps Closed stable burst fracture of sixth thoracic vertebra, initial encounter ([facility]) ([facility]) Chest pain Contusion of scalp Knee pain Localized, primary osteoarthritis Osteoarthritis of knee Traumatic closed displaced fracture of distal end of radius Shoulder joint pain Hyperlipidemia associated with type 2 diabetes mellitus ([facility]) ([facility]) PVD (peripheral vascular disease) ([facility]) Hematoma Anxiety Diastolic heart failure ([facility]) ([facility]) Internal hemorrhoids Leukoencephalopathy Major depression single episode, in partial remission ([facility]) Metacarpal bone fracture Mitral valve disorder Peripheral arterial occlusive disease ([facility]) Primary osteoarthritis involving multiple joints Vision loss COPD (chronic obstructive pulmonary disease) ([facility]) ([facility] Diarrhea Drug-induced constipation H/O mechanical aortic valve replacement Age-related osteoporosis with current pathological fracture Care Management Physical deconditioning Chronic heart failure with preserved ejection fraction (HFpEF) ([facility]) ([facility] Paroxysmal atrial fibrillation ([facility]) ([facility]) Hypertension associated with type 2 diabetes mellitus ([facility]) ([facility]) Encounter for prophylactic measures, unspecified Graves' disease Cirrhosis of liver without ascites, unspecified hepatic cirrhosis type ([facility]) ([facility]) Stage 3b chronic kidney disease ([facility]) OLIVE (acute kidney injury) ([facility]) Heart failure with mildly reduced ejection fraction (HFmrEF) ([facility]) ([facility]) Medications: Current Outpatient Medications Medication [...] 10 Time spent performing chart review (minutes): 2 Total time (minutes): 12 CASEY JOHNSON RN I reviewed the patient's status and education provided by CASEY JOHNSON RN. I agree with the findings and recommendations made. Cosigned by Sanjeev Webster DO at 05/12/2023 1:15 PM EMPLOYEE RELATIONS MANAGER OYEE RELATIONS MANAGER OYEE RELATIONS MANAGER documented in this encounter Plan of Treatment Upcoming Encounters Date Type Department Care Team (Late st Contact Info) Description 04/14/2024 2:00 PM EMPLOYEE RELATIONS MANAGER Office Visit [facility] Medical Group Multispecialty Care - [facility] 3 [facility], [address] [place] [address] Julio Pulido MD [address] [place] [address] documented as of this encounter Goals Goal Patient Goal Type Associated Problems Recent Progress Patient-Stated? Author Health - patient able to perform ADLs independently General On track(2023 9:49 AM CDT) Casey Corona RN Note: 12/17/23: Patient stated she is independent with ASL's. Establish Plan for Symptom Monitoring-CHF General On track(2023 11:36 AM EMPLOYEE RELATIONS MANAGER) Casey Corona RN Note: Patient will [...] Symptom Monitoring-COPD General On track(2023 11:36 AM EMPLOYEE RELATIONS MANAGER) Casey Corona RN Note: Patient will [...] Symptom Monitoring-DM General On track(2023 4:33 PM EMPLOYEE RELATIONS MANAGER) Casey Corona RN Note: Patient will [...] Symptom Monitoring-HTN General On track(2023 4:33 PM EMPLOYEE RELATIONS MANAGER) Casey Corona, RN Note: Patient will monitor [...] failure with preserved ejection fraction (HFpEF) ([facility])- Primary Chronic obstructive pulmonary disease, unspecified COPD type ([facility]) documented in this encounter Additional Health Concerns Assessment Noted Time PHQ-9 Depression Total Score: 13 023 3:56 PM CDT documented as of this encounter Care Teams Lsat Instructor Relationship Specialty Start Date End Date Sanjeev Webster DO [address] [place] [id number] PCP - General FAMILY PRACTICE 09/25/20 Casey Johnson, RN [address] [place], [place] [address] Turret Punch Operator (Ambulatory) REGISTERED NURSE 08/14/20 documented as of this encounter
--- OUTSIDE RECORDS SUMMARY | 2024-03-15 00:55 | XMS_ITS | Encounter Summary ---
Author Organization [facility] Address [facility] [place] [address] [place] [address] Care Team Providers Care Concrete Smoother Name Role Phone Dianne Johnson RN Unavailable [phone] Sanjeev Webster DO Primary Care Provider + Reason for Visit * Reason Onset Date Comments Results 04/08/2023 Encounter Details Date Type Department Care Team (Late st Contact Info) Description 04/08/2023 Telephone [facility] Family & Internal Medicine [id number] [place] [address] Sanjeev Webster DO [facility] [place] [address] Results Social History Tobacco Use [...] any clubs o r organizations such as jain groups, unions, fraternal or athletic groups, or [...] Progress Notes * Yenifer Ingram MA - 04/08/2023 4:14 PM CST Spoke with patient and informed her of lab order placed and no medication changes. The patient v/u and agrees ----- Message from Sanjeev Webster DO sent at 04/08/2023 10:20 AM ASBESTOS CLOTH INSPECTOR ----- Continue current dose; repeat on 04/09/[address] [facility]. Please order PT/INR venous for [facility]. STOS CLOTH INSPECTOR STOS CLOTH INSPECTOR documented in this encounter Plan of Treatment Upcoming Encounters Date Type Department Care Team (Late st Contact Info) Description 04/14/2024 2:00 PM ASBESTOS CLOTH INSPECTOR Office Visit [facility] Multispecialty Care - [facility] 3 [facility], [address] [place] [phone] Julio Pulido MD 3 [place] [address] documented as of this encounter Goals Goal Patient Goal Type Associated Problems Recent Progress Patient-Stated? Author Health - patient able to perform ADLs independently General On track(2023 9:49 AM CDT) Dianne Corona RN Note: 12/17/23: Patient stated she is independent with ASL's. Establish Plan for Symptom Monitoring-CHF General On track(2023 11:36 AM ASBESTOS CLOTH INSPECTOR) Dianne Corona RN Note: Patient will [...] Symptom Monitoring-COPD General On track(2023 11:36 AM ASBESTOS CLOTH INSPECTOR) Dianne Corona RN Note: Patient will [...] Symptom Monitoring-DM General On track(2023 4:33 PM ASBESTOS CLOTH INSPECTOR) Dianne Corona RN Note: Patient will [...] Symptom Monitoring-HTN General On track(2023 4:33 PM ASBESTOS CLOTH INSPECTOR) No Dianne Johnson RN Note: Patient will monitor B/P several times per week , record readings and report to physician or CC if B/P consistently >130/80 Take your medications as prescribed. Follow up with your provider as scheduled. Take your blood pressure at least several times a week if able. documented as of this encounter Results * (ABNORMAL) PROTIME/INR, VENOUS (04/09/2023 12:51 PM ASBESTOS CLOTH INSPECTOR) PROTIME 25.6(H) 10.2 - 12.9 SEC 04/09/2023 1:31 PM ASBESTOS CLOTH INSPECTOR [facility] INR 2.2 04/09/2023 1:31 PM ASBESTOS CLOTH INSPECTOR [facility] Comment: Recommended INR Therapeutic Goals: ??2.0-3.0 Routine Therapy ??2.5-3.5 Mechanical Prosthetic Valves (High Risk) 04/09/2023 12:5 1 PM ASBESTOS CLOTH INSPECTOR Sanjeev Webster DO LABORATORY Final Re sult [facility] 3 [place] [address], documented in this encounter Visit Diagnoses Diagnosis Chronic anticoagulation- Primary Encounter for long-term (current) use of anticoagulants Requires lifelong warfarin therapy documented in this encounter Additional Health Concerns Assessment Noted Time PHQ-9 Depression Total Score: 13 023 3:56 PM CDT documented as of this encounter Care Teams Concrete Smoother Relationship Specialty Start Date End Date Sanjeev Webster DO [address] [place] [address] PCP - General FAMILY PRACTICE 09/25/20 Dianne Johnson, RN [address] [place] [address] Scuba Dive Training Instructor (Ambulatory) REGISTERED NURSE 08/14/20 documented as of this encounter
--- OUTSIDE RECORDS SUMMARY | 2024-03-15 00:55 | XMS_ITS | Encounter Summary ---
Author Organization [facility] Address [facility]6 [facility] [place] [address] [place] [address] Care Team Providers Care Installation Coordinator Name Role Phone Dianne Johnson RN Unavailable [phone] Sanjeev Webster DO Primary Care Provider + Encounter Details Date Type Department Care Team (Late st Contact Info) Description 04/20/2023 1:00 PM TOBACCO GRADER Laboratory Only [facility] Medical Group Family & Internal Medicine [id number] [place] [address] Sanjeev Webster DO [address] [place] [address] Social History Tobacco Use Types [...] How often do you attend chur or taoism services? More than 4 times [...] Recorded Patient Health Questionnaire-2 Score 6 12/11/2022 [facility] - [...] st Contact Info) Description 04/14/2024 2:00 PM TOBACCO GRADER Office Visit [facility] Medical Group Multispecialty Care - [facility] 3 [facility], [address] [place] [phone] Julio Pulido MD 3 [place] [address] documented as of this encounter Goals Goal Patient Goal Type Associated Problems Recent Progress Patient-Stated? Author Health - patient able to perform ADLs independently General On track(2023 9:49 AM CDT) Dianne Corona RN Note: 12/17/23: Patient stated she is independent with ASL's. Establish Plan for Symptom Monitoring-CHF General On track(2023 11:36 AM TOBACCO GRADER) Dianne Corona RN Note: Patient will recognize [...] Symptom Monitoring-COPD General On track(2023 11:36 AM TOBACCO GRADER) Dianne Corona RN Note: Patient will recognize [...] Symptom Monitoring-DM General On track(2023 4:33 PM TOBACCO GRADER) Dianne Corona RN Note: Patient will manage [...] Symptom Monitoring-HTN General On track(2023 4:33 PM TOBACCO GRADER) Dianne Corona RN Note: Patient will monitor [...] Diagnosis Comments COLLECTION VENOUS BLOOD VENIPUNCTURE Routine 04/20/2023 1:34 PM TOBACCO GRADER Chronic anticoagulation Hypercalcemia Hypertensive heart disease with congestive heart failure ([facility]) PROTHROMBIN TIME, VENOUS Routine 04/20/2023 1:34 PM TOBACCO GRADER Chronic anticoagulation BASIC METABOLIC PANEL Routine 04/20/2023 1:34 PM TOBACCO GRADER Chronic anticoagulation Hypercalcemia Hypertensive heart disease with congestive heart failure ([facility]) documented in this encounter Results * (ABNORMAL) BASIC METABOLIC PANEL (04/20/2023 1:34 PM TOBACCO GRADER) [facility] SODIUM S/P/B 141 136 - 145 MMOL/L 04/20/2023 7:31 PM [facility] POTASSIUM S/P/B 4.1 3.5 - 5.1 MMOL/L 04/20/2023 7:31 PM [facility] CHLORIDE S/P/B 105 98 - 107 MMOL/L 04/20/2023 7:31 PM [facility] CO2 32.1(H) 21 - 32 MMOL/L 04/20/2023 7:31 PM [facility] GLUCOSE 138(H) 70 - 99 MG/DL 04/20/2023 7:31 PM [facility] BUN 17 7 - 18 MG/DL 04/20/2023 7:31 PM [facility] CREATININE S/P/B 1.41(H) 0.55 - 1.02 MG/DL 04/20/2023 7:31 PM [facility] CALCIUM S/P/B 10.9(H) 8.4 - 10.5 MG/DL 04/20/2023 7:31 PM [facility] ANION GAP 3.9(L) 5 - 15 MMOL/L 04/20/2023 7:31 PM [facility] Comment:REFERENCE RANGE NOT ESTABLISHED OSMOLALITY (CALC) 296 MOSM/KG 024 7:31 PM [facility] Comment:REFERENCE RANGE NOT ESTABLISHED GFR ESTIMATE 38(L) >90 ML/MIN/1. 73 M2 04/20/2023 7:31 PM [facility] GFR NOTES GFR REFERENCE S: 04/20/2023 7:31 PM [facility] Comment: THE ESTIMATED GFR IS CALCULATED USING [...] ml/min/1.73 m2 G5,KIDNEY FAILURE: <15 ml/min/1.73 m2 04/20/2023 1:34 PM TOBACCO GRADER Sanjeev Webster DO LABORATORY Final Re sult [facility] [address] [place] [address], * (ABNORMAL) PROTIME/INR, VENOUS (04/20/2023 1:34 PM TOBACCO GRADER) PROTIME 19.0(H) 9.3 - 11.6 SEC 04/20/2023 7:52 PM TOBACCO GRADER [facility] INR 1.9(H) 0.9 - 1.1 04/20/2023 7:52 PM TOBACCO GRADER [facility] Comment: TREATMENT OR PROPHYLAXIS AGAINST: ?? THERAPEUTIC RANGE (INR): ?VENOUS THROMBOSIS ? 2.0-3.0 ?PULMONARY EMBOLUS ? 2.0-3.0 ?? MECHANICAL PROSTHETIC VALVES ? 2.5-3.5 04/20/2023 1:34 PM TOBACCO GRADER Sanjeev Webster DO LABORATORY Final Re sult [facility] [address] [place] [address], documented in this encounter Visit Diagnoses Diagnosis Chronic anticoagulation- Primary Encounter for long-term (current) use of anticoagulants Hypercalcemia Hypertensive heart disease with congestive heart failure ([facility]/HCC) Unspecified hypertensive heart disease with heart failure documented in this encounter Additional Health Concerns Assessment Noted Time PHQ-9 Depression Total Score: 13 023 3:56 PM CDT documented as of this encounter Care Teams Installation Coordinator Relationship Specialty Start Date End Date Sanjeev Webster DO [address] [place] [address] PCP - General FAMILY PRACTICE 09/25/20 Dianne Johnson, RN [address] [place] [address] Senior Analyst Programmer (Ambulatory) REGISTERED NURSE 08/14/20 documented as of this encounter
--- OUTSIDE RECORDS SUMMARY | 2024-03-15 00:55 | XMS_ITS | Encounter Summary ---
Author Organization [facility] Address [facility]6 [facility] [place] [address] [place] [address] Care Team Providers Care Netsuite Developer Name Role Phone Dianne Johnson RN Unavailable [phone] Sanjeev Webster DO Primary Care Provider + Reason for Visit * Reason Comments Anticoagulation Encounter Details Date Type Department Care Team (Late st Contact Info) Description 04/06/2023 1:00 PM LABORER HIGH DENSITY PRESS Allied Health/Nurse Visit [facility] Medical Group Family & Internal Medicine [phone] [place] [address] Sanjeev Webster DO [facility] [place] [address] Anticoagulation Social History Tobacco Use [...] often do you attend chur ch or buddhism services? More than 4 times per year 08/26/2022 Do you belong to any clubs o r organizations such as buddhism groups, unions, fraternal or athletic groups, or [...] Progress Notes * Shanel Staley MA - 04/06/2023 1:00 PM CST LMTRC with Izzy to inform continue same dose, repeat INR on 04/09/23 RER HIGH DENSITY PRESS RER HIGH DENSITY PRESS documented in this encounter Plan of Treatment Upcoming Encounters Date Type Department Care Team (Late st Contact Info) Description 04/14/2024 2:00 PM LABORER HIGH DENSITY PRESS Office Visit [facility] Medical Group Multispecialty Care - [facility] 3 [facility], [address] [place] [phone] Julio Pulido MD 3 [place] [address] documented as of this encounter Goals Goal Patient Goal Type Associated Problems Recent Progress Patient-Stated? Author Health - patient able to perform ADLs independently General On track(2023 9:49 AM CDT) No Dianne Johnson RN Note: 12/17/23: Patient stated she is independent with ASL's. Establish Plan for Symptom Monitoring-CHF General On track(2023 11:36 AM LABORER HIGH DENSITY PRESS) Dianne Corona RN Note: Patient will recognize [...] Monitoring-COPD General On track(2023 11:36 AM LABORER HIGH DENSITY PRESS) Dianne Corona RN Note: Patient will recognize [...] Monitoring-DM General On track(2023 4:33 PM LABORER HIGH DENSITY PRESS) Dianne Corona RN Note: Patient will manage [...] Monitoring-HTN General On track(2023 4:33 PM LABORER HIGH DENSITY PRESS) Dianne Corona RN Note: Patient will monitor [...] Date/Time Associated Diagnosis Comments COLLECT.CAPILLARY (FNGR,HEEL,EAR) Routine 04/06/2023 1:32 PM LABORER HIGH DENSITY PRESS Chronic anticoagulation PROTHROMBIN TIME, FINGERSTICK Routine 04/06/2023 Chronic anticoagulation documented in this encounter Results * PROTIME/INR, FINGERSTICK (04/06/2023) INR WHOLE BLOOD 1.60 MG-S [facility] 04/06/2023 us Sanjeev Webster DO LABORATORY [place] [address], documented in this encounter Visit Diagnoses Diagnosis Chronic anticoagulation- Primary Encounter for long-term (current) use of anticoagulants documented in this encounter Additional Health Concerns Assessment Noted Time PHQ-9 Depression Total Score: 13 023 3:56 PM CDT documented as of this encounter Care Teams Netsuite Developer Relationship Specialty Start Date End Date Sanjeev Webster DO [address] [place] [address] PCP - General FAMILY PRACTICE 09/25/20 Dianne Johnson, RN [address] [place] [address] Theater Manager (Ambulatory) REGISTERED NURSE 08/14/20 documented as of this encounter
--- OUTSIDE RECORDS SUMMARY | 2024-03-15 00:55 | XMS_ITS | Encounter Summary ---
Author Organization [facility] Address [facility]6 [place] [address] [place] [address] Care Team Providers Care Photo Cartographer Name Role Phone Dianne Johnson RN Unavailable [phone] Sanjeev Webster DO Primary Care Provider + Encounter Details Date Type Department Care Team (Latest Contact Info) Description 03/25/2023 Travel Social History Tobacco Use Types Packs/Day [...] How often do you attend chur or moravian services? More than 4 times [...] Recorded Patient Health Questionnaire-2 Score 6 12/11/2022 [facility] ional [...] st Contact Info) Description 04/14/2024 2:00 PM INSOLE ROUNDER Office Visit [facility] Medical Group Multispecialty Care - [facility] 3 [facility], [address] [place] [address] Julio Pulido MD 3 [place] [address] documented as of this encounter Goals Goal Patient Goal Type Associated Problems Recent Progress Patient-Stated? Author Health - patient able to perform ADLs independently General On track(2023 9:49 AM CDT) Dianne Corona RN Note: 12/17/23: Patient stated she is independent with ASL's. Establish Plan for Symptom Monitoring-CHF General On track(2023 11:36 AM INSOLE ROUNDER) Dianne Corona RN Note: Patient will recognize [...] Symptom Monitoring-COPD General On track(2023 11:36 AM INSOLE ROUNDER) Dianne Corona RN Note: Patient will recognize [...] Symptom Monitoring-DM General On track(2023 4:33 PM INSOLE ROUNDER) Dianne Corona RN Note: Patient will manage [...] Symptom Monitoring-HTN General On track(2023 4:33 PM INSOLE ROUNDER) Dianne Corona, RN Note: Patient will monitor [...] documented as of this encounter Care Teams Photo Cartographer Relationship Specialty Start Date End Date Sanjeev Webster DO [address] [place] [address] PCP - General FAMILY PRACTICE 09/25/20 Dianne Johnson, RN [address] [place] [address] Manager Of Compliance (Ambulatory) REGISTERED NURSE 08/14/20 documented as of this encounter
--- OUTSIDE RECORDS SUMMARY | 2024-03-15 00:55 | XMS_ITS | Encounter Summary ---
Author Organization [facility] Address Replaced by [facility]6 [facility] [place] [address] [place] [address] Care Team Providers Care Chairman And Chief Executive Officer Name Role Phone Dianne Johnson RN Unavailable [phone] Sanjeev Webster DO Primary Care Provider + Encounter Details Date Type Department Care Team (Latest Contact Info) Description 04/09/2023 12:40 PM QUOTATION CHECKER - 04/09/2023 11:59 PM QUOTATION CHECKER Hospital Encounter [facility] [place] [address] Sanjeev Webster DO [facility] [place] [address] Discharge Disposition: Home or Self [...] How often do you attend chur or sabianism services? More than 4 times [...] 6 12/11/2022 [facility] - Occupational Stress Questionnaire Answer Date [...] hronic obstructive pulmonary disease, unspecified COPD type ([facility]) INHALE 2 PUFFS BY MOUTH EVERY 6 HOURS NEEDED FOR WHEEZING 18 g 5 3 Blood Glucose Monitoring Suppl (ONE TOUCH ULTRA 2) w/Device KitIndications:Type 2 diabetes mellitus with stage 3b chronic kidney disease, without long-term current use of insulin ([facility]) 1 Device by Does not apply route daily. 1 kit 3 Cholecalciferol (VITAMIN D3) 25 MCG (1000 UT) Cap Take 1 capsule (1,000 Units total) by mouth daily. Glucose Blood (BLOOD GLUCOSE TEST STRIPS) StripIndications:Typ e 2 diabetes mellitus with stage 3b chronic kidney disease, without long-term current use of insulin ([facility]) 1 Device by Does not apply route daily. 100 strip 3 3 Lancets (ONETOUCH ULTRASOFT) lancetsIndications:T ype 2 diabetes mellitus with stage 3b chronic kidney disease, without long-term current use of insulin ([facility]) 1 each by Other route as needed. Use as instructed 100 each 3 3 simvastatin (ZOCOR) 10 MG tabletIndications:Hy perlipidemia associated with type 2 diabetes mellitus ([facility] HHS/HCC) Take 1 tablet (10 mg total) by mouth nightly at bedtime. 90 tablet 3 3 ALPRAZolam (XANAX) 0.5 MG tabletIndications:An xiety TAKE 1/2 (ONE-HALF) TABLET BY MOUTH NIGHTLY NEEDED FOR SLEEP 15 tablet 4 04/28/19 24 docusate sodium (COLACE) 100 MG capsuleIndications:C onstipation Take one by mouth twice daily or as needed for constipation. 30 capsule 4 11/19/19 24 dulaglutide (TRULICITY) 1.5 MG/0.5ML injectionIndications :Diabetes Mellitus Inject 1.5 mg into the skin once a week. Indications: Diabetes 6 mL 3 05/11/19 24 furosemide (LASIX) 20 MG tabletIndications:Hy pertensive heart disease with congestive heart failure ([facility] HHS/[facility]) Take 1 tablet (20 mg total) by mouth daily. 30 tablet 3 3 05/22/19 24 furosemide (LASIX) 80 MG tabletIndications:Ch ronic heart failure with preserved ejection fraction (HFpEF) ([facility] HHS/[facility]) Take 0.5 tablets (40 mg total) by mouth daily. 30 tablet 3 06/30/19 24 gabapentin (NEURONTIN) 300 MG capsuleIndications:C hronic low back pain, unspecified back pain laterality, unspecified whether sciatica present Take 1 capsule (300 mg total) by mouth 3 (three) times daily. 270 capsule 3 04/21/19 24 HYDROcodone-acetamin ophen (NORCO) 5-325 MG tabletIndications:Ch [...] 10 MG tabletIndications:Hy perthyroidism Take 1 tablet (10 mg total) by mouth daily. 90 tablet 1 3 04/28/19 24 metoprolol tartrate (LOPRESSOR) 25 MG tabletIndications:Ch ronic heart failure with preserved ejection fraction (HFpEF) ([facility] HHS/HCC) Take 0.5 tablets (12.5 [...] three days 18 tablet 4 05/26/19 24 venlafaxine XR (EFFEXOR-XR) 150 MG 24 hr capsuleIndications:C bhavana mild episode of major depressive disorder without [...] for a total of 7mg 60 tablet 4 04/28/19 24 warfarin (COUMADIN) 5 MG tabletIndications:LB BB (left bundle branch block),Paroxysmal atrial flutter (CMS/HCC HHS/HCC) Take 1 tablet by mouth once daily 90 tablet 4 06/11/19 24 warfarin (COUMADIN) 6 MG tabletIndications:Ch ronic anticoagulation Take 1 tablet by mouth once daily 30 tablet 3 04/28/19 24 documented as of this encounter Plan of Treatment Upcoming Encounters Date Type Department Care Team (Late st Contact Info) Description 04/14/2024 2:00 PM QUOTATION CHECKER Office Visit [facility] Medical Group Multispecialty Care - [facility] 3 [facility], [address] [place] [address] Julio Pulido MD 3 [place] [address] documented as of this encounter Goals Goal Patient Goal Type Associated Problems Recent Progress Patient-Stated? Author Health - patient able to perform ADLs independently General On track(2023 9:49 AM CDT) Dianne Corona RN Note: 12/17/23: Patient stated she is independent with ASL's. Establish Plan for Symptom Monitoring-CHF General On track(2023 11:36 AM QUOTATION CHECKER) Dianne Corona RN Note: Patient will recognize [...] Symptom Monitoring-COPD General On track(2023 11:36 AM QUOTATION CHECKER) Dianne Corona RN Note: Patient will recognize [...] Symptom Monitoring-DM General On track(2023 4:33 PM QUOTATION CHECKER) Dianne Corona RN Note: Patient will [...] Symptom Monitoring-HTN General On track(2023 4:33 PM QUOTATION CHECKER) Dianne Corona RN Note: Patient will [...] Associated Diagnosis Comments PROTHROMBIN TIME, VENOUS Routine 04/09/2023 12:51 PM QUOTATION CHECKER Chronic anticoagulation Requires lifelong warfarin therapy BASIC METABOLIC PANEL Routine 04/09/2023 12:51 PM QUOTATION CHECKER Stage 3b chronic kidney disease ([facility]/HCC) documented in this encounter Results * (ABNORMAL) PROTIME/INR, VENOUS (04/09/2023 12:51 PM QUOTATION CHECKER) PROTIME 25.6(H) 10.2 - 12.9 SEC 04/09/2023 1:31 PM QUOTATION CHECKER [facility] INR 2.2 04/09/2023 1:31 PM QUOTATION CHECKER [facility] Comment: Recommended INR Therapeutic Goals: ??2.0-3.0 Routine Therapy ??2.5-3.5 Mechanical Prosthetic Valves (High Risk) 04/09/2023 12:5 1 PM QUOTATION CHECKER us Sanjeev Webster DO LABORATORY Final Re sult [facility] 3 [place] [address], * (ABNORMAL) BASIC METABOLIC PANEL (04/09/2023 12:51 PM QUOTATION CHECKER) [facility] GLUCOSE 207(H) 70 - 99 MG/DL 04/09/2023 1:35 PM QUOTATION CHECKER [facility] BUN 19(H) 7 - 18 MG/DL 04/09/2023 1:35 PM [facility] CREATININE S/P/B 1.64(H) 0.55 - 1.02 MG/DL 04/09/2023 1:35 PM [facility] SODIUM S/P/B 139 136 - 145 MMOL/L 04/09/2023 1:35 PM [facility] POTASSIUM S/P/B 4.0 3.5 - 5.1 MMOL/L 04/09/2023 1:35 PM [facility] CHLORIDE S/P/B 107 100 - 108 MMOL/L 04/09/2023 1:35 PM [facility] CO2 28.2 21 - 32 MMOL/L 04/09/2023 1:35 PM [facility] CALCIUM S/P/B 10.5(H) 8.5 - 10.1 MG/DL 04/09/2023 1:35 PM [facility] ANION GAP 3.8(L) 5 - 15 MMOL/L 04/09/2023 1:35 PM [facility] BUN CREATININE RATIO 11.6 6 - 26 04/09/2023 1:35 PM [facility] GFR ESTIMATE 32(L) >90 ML/MIN/1.7 3 M2 04/09/2023 1:35 PM QUOTATION CHECKER [facility] Comment: NOTE: eGFR is not calculated for patients <18 years of age. This is an estimated GFR calculation using the new CKD EPI creatinine equation without race and so does not require a correction factor for race. This estimated GFR should not be used for calculating drug doses. 04/09/2023 12:5 1 PM QUOTATION CHECKER Sanjeev Webster DO LABORATORY Final Re sult [facility] 3 [place] [address], documented in this encounter Visit Diagnoses Diagnosis Stage 3b chronic kidney disease (CMS/HCC HHS/HCC) Chronic anticoagulation Encounter for long-term (current) use of anticoagulants Requires lifelong warfarin therapy documented in this encounter Additional Health Concerns Assessment Noted Time PHQ-9 Depression Total Score: 13 023 3:56 PM CDT documented as of this encounter Care Teams Chairman And Chief Executive Officer Relationship Specialty Start Date End Date Sanjeev Webster DO [address] [place] [address] PCP - General FAMILY PRACTICE 09/25/20 Dianne Johnson, RN [address] [place] [address] Director Specialty (Ambulatory) REGISTERED NURSE 08/14/20 documented as of this encounter
--- OUTSIDE RECORDS SUMMARY | 2024-03-15 00:55 | XMS_ITS | Encounter Summary ---
Author Organization [facility] Address [facility]6 [facility] [place] [address] [place] [address] Care Team Providers Care Head Usher Name Role Phone Dianne Johnson RN Unavailable [phone] Sanjeev Webster DO Primary Care Provider + Encounter Details Date Type Department Care Team (Latest Contact Info) Description 04/20/2023 Travel Social History Tobacco Use Types Packs/Day [...] 12/11/2022 [facility] Occupat ional [facility] [...] st Contact Info) Description 04/14/2024 2:00 PM LAY OUT WORKER Office Visit [facility] Medical Group Multispecialty Care - [facility] 3 [facility], [address] [place] [address] Julio Pulido MD 3 [place] [address] documented as of this encounter Goals Goal Patient Goal Type Associated Problems Recent Progress Patient-Stated? Author Health - patient able to perform ADLs independently General On track(2023 9:49 AM CDT) Dianne Corona RN Note: 12/17/23: Patient stated she is independent with ASL's. Establish Plan for Symptom Monitoring-CHF General On track(2023 11:36 AM LAY OUT WORKER) Dianne Corona RN Note: Patient will [...] Symptom Monitoring-COPD General On track(2023 11:36 AM LAY OUT WORKER) Dianne Corona RN Note: Patient will [...] Symptom Monitoring-DM General On track(2023 4:33 PM LAY OUT WORKER) Dianne Corona RN Note: Patient will [...] Symptom Monitoring-HTN General On track(2023 4:33 PM LAY OUT WORKER) Dianne Corona, RN Note: Patient will [...] as of this encounter Care Teams Head Usher Relationship Specialty Start Date End Date Sanjeev Webster DO [address] [place] [address] PCP - General FAMILY PRACTICE 09/25/20 Dianne Johnson, RN [address] [place] [address] Scientist Engineer (Ambulatory) REGISTERED NURSE 08/14/20 documented as of this encounter
--- OUTSIDE RECORDS SUMMARY | 2024-03-15 00:55 | XMS_ITS | Encounter Summary ---
Author Organization [facility] Address [facility]6 [place] [address] [place] [address] Care Team Providers Care Mechanical Apprentice Name Role Phone Dianne Johnson RN Unavailable [phone] Sanjeev Webster DO Primary Care Provider + Encounter Details Date Type Department Care Team (Latest Contact Info) Description 03/27/2023 Travel Social History Tobacco Use Types Packs/Day [...] Recorded Patient Health Questionnaire-2 Score 6 12/11/2022 [facility] Occupat ional Health [...] st Contact Info) Description 04/14/2024 2:00 PM STOPPER SETTER Office Visit [facility] Medical Group Multispecialty Care - [facility] 3 [facility], [address] [place] [address] Julio Pulido MD 3 [place] [address] documented as of this encounter Goals Goal Patient Goal Type Associated Problems Recent Progress Patient-Stated? Author Health - patient able to perform ADLs independently General On track(2023 9:49 AM CDT) Dianne Corona RN Note: 12/17/23: Patient stated she is independent with ASL's. Establish Plan for Symptom Monitoring-CHF General On track(2023 11:36 AM STOPPER SETTER) Dianne Corona RN Note: Patient will recognize [...] Symptom Monitoring-COPD General On track(2023 11:36 AM STOPPER SETTER) Dianne Corona RN Note: Patient will recognize [...] Symptom Monitoring-DM General On track(2023 4:33 PM STOPPER SETTER) Dianne Corona RN Note: Patient will manage [...] Symptom Monitoring-HTN General On track(2023 4:33 PM STOPPER SETTER) Dianne Corona, RN Note: Patient will monitor [...] documented as of this encounter Care Teams Mechanical Apprentice Relationship Specialty Start Date End Date Sanjeev Webster DO [address] [place] [address] PCP - General FAMILY PRACTICE 09/25/20 Dianne Johnson, RN [address] [place] [address] Commutator Tester (Ambulatory) REGISTERED NURSE 08/14/20 documented as of this encounter
--- OUTSIDE RECORDS SUMMARY | 2024-03-15 00:55 | XMS_ITS | Encounter Summary ---
Author Organization [facility] Address [facility]6 [place] [address] [place] [address] Care Team Providers Care Towel Sorter Name Role Phone Casey Johnson RN Unavailable [phone] Sanjeev Webster DO Primary Care Provider + Reason for Visit * Reason Onset Date Comments Information 04/07/2023 Follow Up Call 04/07/2023 Encounter Details Date Type Department Care Team (Late st Contact Info) Description 04/07/2023 Telephone [facility] Medical [facility] Family & Internal Medicine [address] [address] Sanjeev Webster DO [address] [place] [address] Information; Follow Up Call Social History Tobacco Use [...] Recorded Patient Health Questionnaire-2 Score 6 12/11/2022 [facility] ionpr Health - Occupational Stress Questionnaire Answer Date [...] Progress Notes * Yenifer Ingram MA - 04/09/2023 3:59 PM CST Spoke with patient and lab appt scheduled. ERTY INSURANCE AGENT * Casey Johnson RN - 04/08/2023 11:39 AM CSTAddended by: CASEY JOHNSON on: 04/08/2023 11:39 AM Modules accepted: Orders ERTY INSURANCE AGENT * Sanjeev Webster DO - 04/08/2023 10:40 AM CST Let's decrease to 20 mg daily. Pt should obtain BMP in 2 weeks; can be done in our office when she gets her PT/INR. ERTY INSURANCE AGENT * Sanjeev Webster DO - 04/08/2023 8:25 AM CST Please clarify what dose of furosemide pt is on? Pt's granddaughter manages this. ERTY INSURANCE AGENT * Casey Johnson RN - 04/07/2023 2:58 PM CST Patient called stating she couldn't get CT scan done today due to kidney function low. She is scheduled to see on 04/09/23 and unsure if she should keep appointment. Doc halo sent to PCP regarding the above information. Per patient needs to establish care with and to keep appointment on 04/09/23. Informed patient and she verbalizes understanding. ERTY INSURANCE AGENT documented in this encounter Plan of Treatment Upcoming Encounters Date Type Department Care Team (Late st Contact Info) Description 04/14/2024 2:00 PM PROPERTY INSURANCE AGENT Office Visit [facility] Medical Group Multispecialty Care - [facility] 3 [facility], [address] [place] [address] Julio Pulido MD 3 [place] [address] documented as of this encounter Goals Goal Patient Goal Type Associated Problems Recent Progress Patient-Stated? Author Health - patient able to perform ADLs independently General On track(2023 9:49 AM CDT) Casey Corona, RN Note: 12/17/23: Patient stated she is independent with ASL's. Establish Plan for Symptom Monitoring-CHF General On track(2023 11:36 AM PROPERTY INSURANCE AGENT) Casey Corona, RN Note: Patient will recognize [...] Symptom Monitoring-COPD General On track(2023 11:36 AM PROPERTY INSURANCE AGENT) Casey Corona, RN Note: Patient will recognize [...] Symptom Monitoring-DM General On track(2023 4:33 PM PROPERTY INSURANCE AGENT) Casey Corona RN Note: Patient will manage [...] Symptom Monitoring-HTN General On track(2023 4:33 PM PROPERTY INSURANCE AGENT) Casey Corona RN Note: Patient will monitor B/P several times per week , record readings and report to physician or CC if B/P consistently >130/80 Take your medications as prescribed. Follow up with your provider as scheduled. Take your blood pressure at least several times a week if able. documented as of this encounter Results * (ABNORMAL) BASIC METABOLIC PANEL (04/09/2023 12:51 PM PROPERTY INSURANCE AGENT) GLUCOSE 207(H) 70 - 99 MG/DL 04/09/2023 1:35 PM PROPERTY INSURANCE AGENT [facility] BUN 19(H) 7 - 18 MG/DL 04/09/2023 1:35 PM PROPERTY INSURANCE AGENT [facility] CREATININE S/P/B 1.64(H) 0.55 - 1.02 MG/DL 04/09/2023 1:35 PM PROPERTY INSURANCE AGENT [facility] SODIUM S/P/B 139 136 - 145 MMOL/L 04/09/2023 1:35 PM [facility] POTASSIUM S/P/B 4.0 3.5 - 5.1 MMOL/L 04/09/2023 1:35 PM [facility] CHLORIDE S/P/B 107 100 - 108 MMOL/L 04/09/2023 1:35 PM [facility] CO2 28.2 21 - 32 MMOL/L 04/09/2023 1:35 PM [facility] CALCIUM S/P/B 10.5(H) 8.5 - 10.1 MG/DL 04/09/2023 1:35 PM [facility] ANION GAP 3.8(L) 5 - 15 MMOL/L 04/09/2023 1:35 PM [facility] BUN CREATININE RATIO 11.6 6 - 26 04/09/2023 1:35 PM [facility] GFR ESTIMATE 32(L) >90 ML/MIN/1.7 3 M2 04/09/2023 1:35 PM [facility] Comment: NOTE: eGFR is not calculated for patients <18 years of age. This is an estimated GFR calculation using the new CKD EPI creatinine equation without race and so does not require a correction factor for race. This estimated GFR should not be used for calculating drug doses. 04/09/2023 12:5 1 PM PROPERTY INSURANCE AGENT Sanjeev Webster DO LABORATORY Final Re sult [facility] [address] [place] [address], [place] [phone] documented in this encounter Visit Diagnoses Diagnosis Stage 3b chronic kidney disease (CMS/HCC HHS/HCC)- Primary documented in this encounter Additional Health Concerns Assessment Noted Time PHQ-9 Depression Total Score: 13 023 3:56 PM CDT documented as of this encounter Care Teams Towel Sorter Relationship Specialty Start Date End Date Sanjeev Webster DO [address] [place] [phone] PCP - General FAMILY PRACTICE 09/25/20 Casey Johnson, RN [address] [place], [place] [address] Paint Pourer (Ambulatory) REGISTERED NURSE 08/14/20 documented as of this encounter
--- OUTSIDE RECORDS SUMMARY | 2024-03-15 00:55 | XMS_ITS | Encounter Summary ---
Author Organization [facility] Address [facility]6 [facility] [place] [address] [place] [address] Care Team Providers Care Segmental Paver Installer Name Role Phone Casey Johnson RN Unavailable [phone] Sanjeev Webster DO Primary Care Provider + Reason for Visit * Reason Onset Date Comments Care Management 04/27/2023 Encounter Details Date Type Department Care Team (Late st Contact Info) Description 04/27/2023 Patient Outreach [facility] Medical Group Family & Internal Medicine [address] [address] Casey Johnson, RN [address] [place] [address] Care Management Social History Tobacco [...] Recorded Patient Health Questionnaire-2 Score 6 12/11/2022 [facility] Occupat ional Health - [...] Progress Notes * Casey Johnson RN - 04/27/2023 9:14 AM CST Chronic Care Management: 04/27/23: Left message for patient to return phone call. 04/27/23: Contacted patient. See below for details. Patient concerns or urgent matters that need addressed: Non identified during this phone call. Patient Status: Contacted patient to confirm appointment at PCP office tomorrow at 1:20 PM for lab work. CC will send a message to PCP office to find out if patient can get a fasting Lipid panel done the next time she is due for a PT/INR. Patient is aware. Confirmed appointment with (Ocular Pathologist) at [address] JEAN [address] [place] [address] 04/29/23 at 2:00 PM. Please arrive 15 minutes early to register. If you need to reschedule; please contact 's office at [phone]. Encouraged patient to contact CC if she needs directions to get to office. This appointment was made a while back. Informed patient the importance of keeping this appointment. Patient verbalizes understanding. Patient confirmed she received CC letter inthe mail with a list of upcoming appointments. Last A1C done 01/12/23: 6.2. Patient denies any issues with hypo/hyperglycemia at this time. She is currently not on any DM medications. She makes her meals and stated she has plenty of food. Patient doesn't check her BP at home only at office visits. Denies any issues at this time. Denies any issues with COPD or CHF exacerbation s/s at this time. Encouraged to contact CC directlyat the onset of any changes. Patient verbalizes understanding and thanked CC for calling. Plan of Care: creative services coordinator will continue to follow up [...] Future Appointments Date Time Provider Department Center 04/28/2023 1:20 PM [facility] NURSE [facility] 05/12/2023 4:00 PM [facility] 06/23/2023 11:00 AM [facility] ([facility]) [facility] 06/23/2023 12:00 PM [facility] ([facility]) [facility] 09/04/2023 1:00 PM Sania Gomez MD [facility] 04/14/2024 2:00 PM Julio Pulido MD [facility] [place] Quality care gaps: Health [...] test Chronic anticoagulation Coronary artery disease involving picayune coronary artery of picayune heart without angina pectoris Dyspnea on exertion H/O mechanical aortic valve replacement Hypertensive heart disease with congestive heart failure (HHS/HCC) ([facility]) LBBB (left bundle branch block) Myopathy VAZQUEZ (obstructive sleep apnea) Paroxysmal atrial flutter (HHS/HCC) ([facility]/HCC) Benign hypertension with CKD (chronic kidney disease) stage III ([facility]) Memory deficits Hearing deficit, bilateral History of cataract extraction, unspecified laterality Vitamin D deficiency Hypercalcemia Chronic frontal sinusitis Constipation, unspecified constipation type Chronic bilateral low back pain without sciatica Iron deficiency anemia, unspecified iron deficiency anemia type Disorder of skin of trunk Anemia Body mass index (BMI) 31.0-31.9, adult 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[facility]) Benign hypertension with stage 3b chronic kidney disease ([facility] Cobalamin deficiency Compression fracture of thoracic vertebra ([facility]/HCC) ([facility]) Depression Diabetic polyneuropathy ([facility]) ([facility]) Disorder of rotator cuff Diverticular disease Dysphagia Elevated troponin Gastroesophageal reflux disease without esophagitis Hyperlipidemia, unspecified hyperlipidemia type Vascular dementia ([facility]) Unknown and unspecified causes of morbidity Syncope, unspecified syncope type Wrist joint pain Respiratory illness Requires lifelong warfarin therapy Secondary hyperparathyroidism ([facility]) ([facility]) Presence of prosthetic heart valve Plantar fascial fibromatosis Peripheral neuropathy Parathyroid adenoma Polymyalgia rheumatica ([facility]) ([facility]) Osteoporosis Numbness Muscle cramps Closed stable burst fracture of sixth thoracic vertebra, initial encounter ([facility]) ([facility]) Chest pain Contusion of scalp Knee pain Localized, primary osteoarthritis Osteoarthritis of knee Traumatic closed displaced fracture of distal end of radius Shoulder joint pain Hyperlipidemia associated with type 2 diabetes mellitus ([facility]) ([facility]) PVD (peripheral vascular disease) ([facility]) Hematoma Anxiety Diastolic heart failure ([facility]) ([facility]) Internal hemorrhoids Leukoencephalopathy Major depression single episode, in partial remission ([facility]) Metacarpal bone fracture Mitral valve disorder Peripheral arterial occlusive disease ([facility]) Primary osteoarthritis involving multiple joints Vision loss COPD (chronic obstructive pulmonary disease) ([facility]) ([facility]) Diarrhea Drug-induced constipation H/O mechanical aortic valve replacement Age-related osteoporosis with current pathological fracture Care Management Physical deconditioning Chronic heart failure with preserved ejection fraction (HFpEF) ([facility]) ([facility]) Paroxysmal atrial fibrillation ([facility]) ([facility]) Hypertension associated with type 2 diabetes mellitus ([facility]) ([facility]) Encounter for prophylactic measures, unspecified Graves' disease Cirrhosis of liver without ascites, unspecified hepatic cirrhosis type ([facility]) ([facility]) Stage 3b chronic kidney disease ([facility]) OLIVE (acute kidney injury) ([facility]) Heart failure with mildly reduced ejection fraction (HFmrEF) ([facility]) ([facility]) Medications: Current Outpatient Medications Medication Sig [...] with Patient Time spent with patient (minutes): 7 Time spent performing chart review (minutes): 6 Total time (minutes): 13 CASEY JOHNSON RN I reviewed the patient's status and education provided by CASEY JOHNSON RN. I agree with the findings and recommendations made. Cosigned by Sanjeev Webster DO at 04/27/2023 11:[address] TUBE BUILDER L[address] TUBE BUILDER LANE TUBE BUILDER documented in this encounter Plan of Treatment Upcoming Encounters Date Type Department Care Team (Late st Contact Info) Description 04/14/2024 2:00 PM AIRPLANE TUBE BUILDER Office Visit [facility] Medical Group Multispecialty Care - [address], [address] [place] [address] Julio Pulido MD [address] [place] [address] documented as of this encounter Goals Goal Patient Goal Type Associated Problems Recent Progress Patient-Stated? Author Health - patient able to perform ADLs independently General On track(2023 9:49 AM CDT) Casey Corona RN Note: 12/17/23: Patient stated she is independent with ASL's. Establish Plan for Symptom Monitoring-CHF General On track(2023 11:36 AM AIRPLANE TUBE BUILDER) Casey Corona RN Note: Patient will [...] Symptom Monitoring-COPD General On track(2023 11:36 AM AIRPLANE TUBE BUILDER) Casey Corona RN Note: Patient will [...] Symptom Monitoring-DM General On track(2023 4:33 PM AIRPLANE TUBE BUILDER) Casey Corona RN Note: Patient will [...] Symptom Monitoring-HTN General On track(2023 4:33 PM AIRPLANE TUBE BUILDER) Casey Corona, RN Note: Patient will monitor [...] disease, without long-term current use of insulin ([facility])- Primary Chronic heart failure with preserved ejection fraction (HFpEF) ([facility]) Chronic obstructive pulmonary disease, unspecified COPD type ([facility]) documented in this encounter Additional Health Concerns Assessment Noted Time PHQ-9 Depression Total Score: 13 023 3:56 PM CDT documented as of this encounter Care Teams Segmental Paver Installer Relationship Specialty Start Date End Date Sanjeev Webster DO [address] [place] [address] [id number] PCP - General FAMILY PRACTICE 09/25/20 Casey Johnson, RN [address] [place] [address] Newspaper Library Manager (Ambulatory) REGISTERED NURSE 08/14/20 documented as of this encounter
--- OUTSIDE RECORDS SUMMARY | 2024-03-15 00:55 | XMS_ITS | Encounter Summary ---
Author Organization [facility] Address [facility]6 [facility] [place] [address] [place] [address] Care Team Providers Care Senior Underwriter Name Role Phone Dianne Johnson RN Unavailable [phone] Sanjeev Webster DO Primary Care Provider + Encounter Details Date Type Department Care Team (Latest Contact Info) Description 04/09/2023 Travel Social History Tobacco Use Types Packs/Day [...] How often do you attend chur or mandaeism services? More than 4 times [...] Contact Info) Description 04/14/2024 2:00 PM RN URGENT CARE Office Visit [facility] Medical Group Multispecialty Care - [facility] 3 [facility], [address] [place] [address] Julio Pulido MD 3 [place] [address] documented as of this encounter Goals Goal Patient Goal Type Associated Problems Recent Progress Patient-Stated? Author Health - patient able to perform ADLs independently General On track(2023 9:49 AM CDT) Dianne Corona RN Note: 12/17/23: Patient stated she is independent with ASL's. Establish Plan for Symptom Monitoring-CHF General On track(2023 11:36 AM RN URGENT CARE) Dianne Corona RN Note: Patient will [...] Monitoring-COPD General On track(2023 11:36 AM RN URGENT CARE) Dianne Corona RN Note: Patient will [...] Monitoring-DM General On track(2023 4:33 PM RN URGENT CARE) Dianne Corona RN Note: Patient will manage [...] Monitoring-HTN General On track(2023 4:33 PM RN URGENT CARE) Dianne Corona, RN Note: Patient will monitor [...] as of this encounter Care Teams Senior Underwriter Relationship Specialty Start Date End Date Sanjeev Webster DO [address] [place] [id number] PCP - General FAMILY PRACTICE 09/25/20 Dianne Johnson, RN [address] [place] [address] Medical Technologist Prn (Ambulatory) REGISTERED NURSE 08/14/20 documented as of this encounter
--- OUTSIDE RECORDS SUMMARY | 2024-03-15 00:55 | XMS_ITS | Encounter Summary ---
Author Organization [facility] Address Critical access hospital6 [facility] [place] [address] [place] [address] Care Team Providers Care Logging Assistant Name Role Phone Dianne Johnson RN Unavailable [phone] Sanjeev Webster DO Primary Care Provider + Reason for Visit * Reason Comments Anticoagulation Encounter Details Date Type Department Care Team (Late st Contact Info) Description 04/01/2023 1:40 PM REAL ESTATE ASSET MANAGER Allied Health/Nurse Visit [facility] Family & Internal Medicine [address] [place] [address] Sanjeev Webster DO [facility] [place] [address] Anticoagulation Social History Tobacco Use [...] Recorded Patient Health Questionnaire-2 Score 6 12/11/2022 [facility] - [...] Progress Notes * Natalee Brown RN - 04/01/2023 1:40 PM CST Patient received results. Patient will restart coumadin 7 mg daily and recheck on Thursday. Opportunity given for all questions to be answered, no further needs voiced at this time. LL-04/02/23 ESTATE ASSET MANAGER documented in this encounter Plan of Treatment Upcoming Encounters Date Type Department Care Team (Late st Contact Info) Description 04/14/2024 2:00 PM REAL ESTATE ASSET MANAGER Office Visit [facility] Multispecialty Care - [facility] 3 [facility], [address] [place] [phone] Julio Pulido MD 3 [place] [address] documented as of this encounter Goals Goal Patient Goal Type Associated Problems Recent Progress Patient-Stated? Author Health - patient able to perform ADLs independently General On track(2023 9:49 AM CDT) No Dianne Johnson RN Note: 12/17/23: Patient stated she is independent with ASL's. Establish Plan for Symptom Monitoring-CHF General On track(2023 11:36 AM REAL ESTATE ASSET MANAGER) Dianne Corona RN Note: Patient will [...] Symptom Monitoring-COPD General On track(2023 11:36 AM REAL ESTATE ASSET MANAGER) Dianne Corona RN Note: Patient will [...] Symptom Monitoring-DM General On track(2023 4:33 PM REAL ESTATE ASSET MANAGER) Dianne Corona RN Note: Patient will [...] Symptom Monitoring-HTN General On track(2023 4:33 PM REAL ESTATE ASSET MANAGER) Dianne Corona RN Note: Patient will [...] Date/Time Associated Diagnosis Comments COLLECT.CAPILLARY (FNGR,HEEL,EAR) Routine 04/01/2023 2:41 PM REAL ESTATE ASSET MANAGER Chronic anticoagulation PROTHROMBIN TIME, FINGERSTICK Routine 04/01/2023 Chronic anticoagulation documented in this encounter Results * PROTIME/INR, FINGERSTICK (04/01/2023) INR WHOLE BLOOD 1.10 MG-S [facility] 04/01/2023 us Sanjeev Webster DO LABORATORY Final Re sult [facility] [address] [place] [address], documented in this encounter Visit Diagnoses Diagnosis Chronic anticoagulation- Primary Encounter for long-term (current) use of anticoagulants documented in this encounter Additional Health Concerns Assessment Noted Time PHQ-9 Depression Total Score: 13 023 3:56 PM CDT documented as of this encounter Care Teams Logging Assistant Relationship Specialty Start Date End Date Sanjeev Webster DO [address] [place] [address] PCP - General FAMILY PRACTICE 09/25/20 Dianne Johnson, RN [address] [place] [address] Returned Case Inspector (Ambulatory) REGISTERED NURSE 08/14/20 documented as of this encounter
--- OUTSIDE RECORDS SUMMARY | 2024-03-15 00:55 | XMS_ITS | Encounter Summary ---
Author Organization [facility] Address Pending sale to [facility] [place] [address] [place] [address] Care Team Providers Care Utility Operator Name Role Phone Dianne Johnson RN Unavailable [phone] Sanjeev Webster DO Primary Care Provider + Reason for Visit * Reason Comments Anticoagulation Encounter Details Date Type Department Care Team (Late st Contact Info) Description 04/28/2023 1:20 PM SENIOR PRODUCT DEVELOPMENT SCIENTIST Allied Health/Nurse Visit [facility] Medical Group Family & Internal Medicine [address] [place] [address] Sanjeev Webster DO [facility] [place] [address] Anticoagulation Social History Tobacco Use [...] Contact Info) Description 04/14/2024 2:00 PM SENIOR PRODUCT DEVELOPMENT SCIENTIST Office Visit [facility] Medical Group Multispecialty Care - [facility] 3 [facility], [address] [place] [phone] Julio Pulido MD 3 [place] [address] documented as of this encounter Goals Goal Patient Goal Type Associated Problems Recent Progress Patient-Stated? Author Health - patient able to perform ADLs independently General On track(2023 9:49 AM CDT) Dianne Corona RN Note: 12/17/23: Patient stated she is independent with ASL's. Establish Plan for Symptom Monitoring-CHF General On track(2023 11:36 AM SENIOR PRODUCT DEVELOPMENT SCIENTIST) Dianne Corona RN Note: Patient will [...] Monitoring-COPD General On track(2023 11:36 AM SENIOR PRODUCT DEVELOPMENT SCIENTIST) Dianne Corona RN Note: Patient will [...] Monitoring-DM General On track(2023 4:33 PM SENIOR PRODUCT DEVELOPMENT SCIENTIST) Dianne Corona RN Note: Patient will [...] Monitoring-HTN General On track(2023 4:33 PM SENIOR PRODUCT DEVELOPMENT SCIENTIST) Dianne Corona RN Note: Patient will monitor [...] Date/Time Associated Diagnosis Comments COLLECT.CAPILLARY (FNGR,HEEL,EAR) Routine 04/28/2023 1:01 PM SENIOR PRODUCT DEVELOPMENT SCIENTIST FPC (current) use of anticoagulants PROTHROMBIN TIME, FINGERSTICK Routine 04/28/2023 [facility]PC (current) use of anticoagulants documented in this encounter Results * PROTIME/INR, FINGERSTICK (04/28/2023) INR WHOLE BLOOD 2.30 MG-S [facility] 04/28/2023 us Sanjeev Webster DO LABORATORY Final Re sult [facility] [address] [place] [address], documented in this encounter Visit Diagnoses Diagnosis rn long term care (current) use of anticoagulants- Primary Long-term (current) use of anticoagulants documented in this encounter Additional Health Concerns Assessment Noted Time PHQ-9 Depression Total Score: 13 023 3:56 PM CDT documented as of this encounter Care Teams Utility Operator Relationship Specialty Start Date End Date Sanjeev Webster DO [address] [place] [address] PCP - General FAMILY PRACTICE 09/25/20 Dianne Johnson, RN [address] [place] [address] Chief Legal Officer (Ambulatory) REGISTERED NURSE 08/14/20 documented as of this encounter
--- OUTSIDE RECORDS SUMMARY | 2024-03-15 00:55 | XMS_ITS | Encounter Summary ---
Author Organization [facility] Address [facility]ly [facility]6 [facility]. [place], [place] [address] [place] [address] Care Team Providers Care Dental Laboratory Technician Apprentice Name Role Phone Dianne Johnson RN Unavailable [phone] Sanjeev Webster DO Primary Care Provider + Reason for Visit * Reason Onset Date Comments Results 04/13/2023 Encounter Details Date Type Department Care Team (Late st Contact Info) Description 04/13/[address] [facility] Family & Internal Medicine [address] [place] [address] Sanjeev Webster DO [facility]1 [place] [address] Results Social History Tobacco Use [...] Recorded Patient Health Questionnaire-2 Score 6 12/11/2022 [facility] Occupat ional [...] Progress Notes * Yenifer Ingram MA - 04/13/2023 12:00 PM CST Spoke with patient and informed her of lab results. The BMP has been ordered. ----- Message from Sanjeev Webster DO sent at 04/13/2023 9:10 AM BOX CAR BRACER ----- PT/Inr is now mildly decreased; continue at current dose and repeat obtain PT/INR as scheduled on 04/20/23. Repeat BMP on 04/20/23 as well. CAR BRACER CAR BRACER documented in this encounter Plan of Treatment Upcoming Encounters Date Type Department Care Team (Late st Contact Info) Description 04/14/2024 2:00 PM BOX CAR BRACER Office Visit [facility] Multispecialty Care - [facility] 3 [facility], [address] [place] [phone] Julio Pulido MD 3 [place] [address] documented as of this encounter Goals Goal Patient Goal Type Associated Problems Recent Progress Patient-Stated? Author Health - patient able to perform ADLs independently General On track(2023 9:49 AM CDT) Dianne Corona RN Note: 12/17/23: Patient stated she is independent with ASL's. Establish Plan for Symptom Monitoring-CHF General On track(2023 11:36 AM BOX CAR BRACER) Dianne Corona RN Note: Patient will recognize [...] Symptom Monitoring-COPD General On track(2023 11:36 AM BOX CAR BRACER) Dianne Corona RN Note: Patient will recognize [...] Symptom Monitoring-DM General On track(2023 4:33 PM BOX CAR BRACER) Dianne Corona RN Note: Patient will manage [...] Symptom Monitoring-HTN General On track(2023 4:33 PM BOX CAR BRACER) Dianne Corona, RN Note: Patient will monitor B/P several times per week , record readings and report to physician or CC if B/P consistently >130/80 Take your medications as prescribed. Follow up with your provider as scheduled. Take your blood pressure at least several times a week if able. documented as of this encounter Results * (ABNORMAL) BASIC METABOLIC PANEL (04/20/2023 1:34 PM BOX CAR BRACER) [facility] SODIUM S/P/B 141 136 - 145 MMOL/L 04/20/2023 7:31 PM [facility] POTASSIUM S/P/B 4.1 3.5 - 5.1 MMOL/L 04/20/2023 7:31 PM [facility] CHLORIDE S/P/B 105 98 - 107 MMOL/L 04/20/2023 7:31 PM [facility] CO2 32.1(H) 21 - 32 MMOL/L 04/20/2023 7:31 PM [facility] GLUCOSE 138(H) 70 - 99 MG/DL 04/20/2023 7:31 PM [facility] BUN 17 7 - 18 MG/DL 04/20/2023 7:31 PM [facility] CREATININE S/P/B 1.41(H) 0.55 - 1.02 MG/DL 04/20/2023 7:31 PM [facility] CALCIUM S/P/B 10.9(H) 8.4 - 10.5 MG/DL 04/20/2023 7:31 PM [facility] ANION GAP 3.9(L) 5 - 15 MMOL/L 04/20/2023 7:31 PM [facility] Comment:REFERENCE RANGE NOT ESTABLISHED OSMOLALITY (CALC) 296 MOSM/KG 024 7:31 PM [facility] Comment:REFERENCE RANGE NOT ESTABLISHED GFR ESTIMATE 38(L) >90 ML/MIN/1. 73 M2 04/20/2023 7:31 PM BOX CAR BRACER [facility] GFR NOTES GFR REFERENCE S: 04/20/2023 7:31 PM BOX CAR BRACER [facility] Comment: THE ESTIMATED GFR IS CALCULATED USING [...] FAILURE: <15 ml/min/1.73 m2 04/20/2023 1:34 PM BOX CAR BRACER Sanjeev Webster DO LABORATORY Final Re sult [facility] [address] [place] [address], documented in this encounter Visit Diagnoses Diagnosis Chronic anticoagulation- Primary Encounter for long-term (current) use of anticoagulants Hypercalcemia Hypertensive heart disease with congestive heart failure ([facility]) Unspecified hypertensive heart disease with heart failure documented in this encounter Additional Health Concerns Assessment Noted Time PHQ-9 Depression Total Score: 13 023 3:56 PM CDT documented as of this encounter Care Teams Dental Laboratory Technician Apprentice Relationship Specialty Start Date End Date Sanjeev Webster DO [address] [place] [address] PCP - General FAMILY PRACTICE 09/25/20 Dianne Johnson RN [address] [place] [address] Information Systems Architect (Ambulatory) REGISTERED NURSE 08/14/20 documented as of this encounter
--- OUTSIDE RECORDS SUMMARY | 2024-03-15 00:56 | XMS_ITS | Encounter Summary ---
Author Organization [facility] Address [facility]6 [facility]. [place], [place] [address] [place] [address] Care Team Providers Care Manager Portable Name Role Phone Dianne Johnson RN Unavailable [phone] Sanjeev Webster DO Primary Care Provider + Reason for Referral * Consultation (Routine) - Closed Specialty Diagnoses / Procedures Referred By Ian t Referred To Contact CARDIOTHORACIC SURGERY Diagnoses Fractured sternal wires, subsequent encounter Procedures OFFICE/OUTPATIENT NEW LOW MDM 30-44 MINUTES OFFICE/OUTPT VISIT,NEW,LEVL IV OFFICE/OUTPT VISIT,NEW,LEVL V OFFICE/OUTPT VISIT,EST,LEVL III OFFICE/OUTPT VISIT,EST,LEVL IV OFFICE/OUTPT VISIT,EST,LEVL V Sanjeev Webster DO [address] [place] [address] Phone: tel: fax: Eb Davis MD [address] [address] Phone: tel: fax: Referral ID Status Reason Start Date Expiration Date V isits Requested Visits Authorized [id number] Closed Specialty Services 02/17/2023 02/18/2024 1 1 CLING CREW SUPERVISOR Reason for Visit * Reason Onset Date Comments Results 02/17/2023 Encounter Details Date Type Department Care Team (Late st Contact Info) Description 02/17/2023 Telephone [facility] Medical Group Family & Internal Medicine [facility] [address] [place] [address] Sanjeev Webster Edward [address] [place] [address] Results Social History Tobacco Use Types Packs/Day [...] Health Questionnaire-2 Score 6 12/11/2022 [facility] Occupat ional [...] documented in this encounter Progress Notes * Scarlett Guerrero MA - 02/17/2023 1:40 PM CST Patient notified and v/u , referral placed 02/17/23 CLING CREW SUPERVISOR * Scarlett Guerrero MA - 02/17/2023 1:37 PM CST ----- Message from Sanjeev Webster DO sent at 02/16/2023 10:08 PM RECYCLING CREW SUPERVISOR ----- Hip shows some minimal arthritis; can treat conservatively at this time. XR of chest does show fracture sternotomy wires; recommend referral to cardiothoracic surgeon to evaluate and ensure no additional treatment is needed. If one is available through [facility], can refer there for ease of access. CLING CREW SUPERVISOR documented in this encounter Plan of Treatment Upcoming Encounters Date Type Department Care Team (Late st Contact Info) Description 04/14/2024 2:00 PM RECYCLING CREW SUPERVISOR Office Visit [facility] Multispecialty Care - [facility] 3 [facility], [address] [place] [address] Julio Pulido MD 3 [place] [address] Scheduled Referrals Name Type Priority Associated Diagnoses Orde r Schedule Ambulatory referral to Cardiothoracic Surgery, Adult (Other) Referral Routine Fractured sternal wires, subsequent encounter Ordered: 02/17/2023 documented as of this encounter Goals Goal Patient Goal Type Associated Problems Recent Progress Patient-Stated? Author Health - patient able to perform ADLs independently General On track(2023 9:49 AM CDT) Dianne Corona, RN Note: 12/17/23: Patient stated she is independent with ASL's. Establish Plan for Symptom Monitoring-CHF General On track(2023 11:36 AM RECYCLING CREW SUPERVISOR) Dianne Corona, RN Note: Patient [...] Symptom Monitoring-COPD General On track(2023 11:36 AM RECYCLING CREW SUPERVISOR) Dianne Corona RN Note: Patient [...] Symptom Monitoring-DM General On track(2023 4:33 PM RECYCLING CREW SUPERVISOR) Dianne Corona, DALE Note: Patient will manage her diabetes and [...] Symptom Monitoring-HTN General On track(2023 4:33 PM RECYCLING CREW SUPERVISOR) Dianne Corona, RN Note: Patient will monitor B/P several times per week , record readings and report to physician or CC if B/P consistently >130/80 Take your medications as prescribed. Follow up with your provider as scheduled. Take your blood pressure at least several times a week if able. documented as of this encounter Visit Diagnoses Diagnosis Fractured sternal wires, subsequent encounter- Primary documented in this encounter Additional Health Concerns Assessment Noted Time PHQ-9 Depression Total Score: 13 023 3:56 PM CDT documented as of this encounter Care Teams Manager Portable Relationship Specialty Start Date End Date Sanjeev Webster DO [address] [place] [address] PCP - General FAMILY PRACTICE 09/25/20 Dianne Johnson, RN [address] [place] [address] Didactic Instructor (Ambulatory) REGISTERED NURSE 08/14/20 documented as of this encounter
--- OUTSIDE RECORDS SUMMARY | 2024-03-15 00:56 | XMS_ITS | Encounter Summary ---
Author Organization [facility] Address [facility]6 [facility] [place] [address] [place] [address] Care Team Providers Care Dye Weigher Name Role Phone Dianne Johnson RN Unavailable [phone] Sanjeev Webster DO Primary Care Provider + Reason for Visit * Reason Onset Date Comments Care Management 02/26/2023 Encounter Details Date Type Department Care Team (Late st Contact Info) Description 02/26/2023 Patient Outreach [facility] Medical Group Family & Internal Medicine [address] [address] Dinane Johnson RN [address] [place] [address] Care Management Social History Tobacco [...] Recorded Patient Health Questionnaire-2 Score 6 12/11/2022 [facility] of Occupat ional Health [...] Progress Notes * Dianne Johnson RN - 02/26/2023 7:24 AM CST Called to remind patient of appointment with [facility] at [facility] [place] and CT scan on 03/03/23 at [facility]. 02/26: Left message to return phone call. 02/26: Attempted to contact patient again without a response. TOP ANALYST documented in this encounter Plan of Treatment Upcoming Encounters Date Type Department Care Team (Late st Contact Info) Description 04/14/2024 2:00 PM DESKTOP ANALYST Office Visit [facility] Medical Group Multispecialty Care - [facility] 3 [facility], [address] [place] [address] Julio Pulido MD 3 [place] [address] documented as of this encounter Goals Goal Patient Goal Type Associated Problems Recent Progress Patient-Stated? Author Health - patient able to perform ADLs independently General On track(2023 9:49 AM CDT) Dianne Corona RN Note: 12/17/23: Patient stated she is independent with ASL's. Establish Plan for Symptom Monitoring-CHF General On track(2023 11:36 AM DESKTOP ANALYST) Dianne Corona RN Note: Patient will [...] Symptom Monitoring-COPD General On track(2023 11:36 AM DESKTOP ANALYST) Dianne Corona RN Note: Patient will [...] Symptom Monitoring-DM General On track(2023 4:33 PM DESKTOP ANALYST) Dianne Corona RN Note: Patient will [...] Symptom Monitoring-HTN General On track(2023 4:33 PM DESKTOP ANALYST) Dianne Corona RN Note: Patient will [...] documented as of this encounter Care Teams Dye Weigher Relationship Specialty Start Date End Date Sanjeev Webster DO [address] [place] [address] PCP - General FAMILY PRACTICE 09/25/20 Dianne Johnson, RN [address] [place] [address] Cane Feeder (Ambulatory) REGISTERED NURSE 08/14/20 documented as of this encounter
--- OUTSIDE RECORDS SUMMARY | 2024-03-15 00:56 | XMS_ITS | Encounter Summary ---
Author Organization [facility] Address [facility]6 [facility] [place] [address] [place] [address] Care Team Providers Care Casing Man Name Role Phone Dianne Johnson RN Unavailable [phone] Sanjeev Webster DO Primary Care Provider + Reason for Visit * Reason Onset Date Comments Appointment Request 03/16/2023 Encounter Details Date Type Department Care Team (Late st Contact Info) Description 03/16/2023 Telephone [facility] Medical Group Family & Internal Medicine [address] [place] [address] Sanjeev Webster DO [address] [place] [address] Appointment Request Social History Tobacco [...] often do you attend chur ch or jewish services? More than 4 times [...] Progress Notes * Yenifer Wolf MA - 03/17/2023 2:06 PM CSTAddended by: YENIFER WOLF on: 03/17/2023 02:06 PM Modules accepted: Orders ATE CHANGE RISK ASSESSOR * Yenifer Wolf MA - 03/17/2023 1:49 PM CST Called patient and she is scheduled for tomorrow. The patient also requested rf on warfarin 1mg. ATE CHANGE RISK ASSESSOR ATE CHANGE RISK ASSESSOR * Dianne Johnson RN - 03/16/2023 2:53 PM CST Patient tried calling office x 4 since 9:00 am regarding appointment today and stated call dropped. Scheduled to see today for f/u and she is due for INR. ATE CHANGE RISK ASSESSOR documented in this encounter Plan of Treatment Upcoming Encounters Date Type Department Care Team (Late st Contact Info) Description 04/14/2024 2:00 PM CLIMATE CHANGE RISK ASSESSOR Office Visit [facility] Group Multispecialty Care - [facility] 3 [facility], [address] [place] [address] Julio Pulido MD [address] [place] [address] [phone] (work) documented as of this encounter Goals Goal Patient Goal Type Associated Problems Recent Progress Patient-Stated? Author Health - patient able to perform ADLs independently General On track(2023 9:49 AM CDT) Dianne Corona RN Note: 12/17/23: Patient stated she is independent with ASL's. Establish Plan for Symptom Monitoring-CHF General On track(2023 11:36 AM CLIMATE CHANGE RISK ASSESSOR) Dianne Corona, RN Note: Patient will recognize [...] Symptom Monitoring-COPD General On track(2023 11:36 AM CLIMATE CHANGE RISK ASSESSOR) Dianne Corona RN Note: Patient will recognize [...] Symptom Monitoring-DM General On track(2023 4:33 PM CLIMATE CHANGE RISK ASSESSOR) Dianne Corona RN Note: Patient will manage [...] Symptom Monitoring-HTN General On track(2023 4:33 PM CLIMATE CHANGE RISK ASSESSOR) Dianne Corona, RN Note: Patient will monitor [...] documented as of this encounter Care Teams Casing Man Relationship Specialty Start Date End Date Sanjeev Webster DO [address] [place] [address] PCP - General FAMILY PRACTICE 09/25/20 Dianne Johnson, RN [address] [place] [address] Entry Level Sales Consultant (Ambulatory) REGISTERED NURSE 08/14/20 documented as of this encounter
--- OUTSIDE RECORDS SUMMARY | 2024-03-15 00:56 | XMS_ITS | Encounter Summary ---
Author Organization [facility] Address [facility]6 [facility] [place] [address] [place] [address] Care Team Providers Care Biotechnologist Name Role Phone Dianne Johnson RN Unavailable [phone] Sanjeev Webster DO Primary Care Provider + Encounter Details Date Type Department Care Team (Latest Contact Info) Description 03/23/2023 Travel Social History Tobacco Use Types Packs/Day [...] Recorded Patient Health Questionnaire-2 Score 6 12/11/2022 [facility] of Occupat ional Health [...] st Contact Info) Description 04/14/2024 2:00 PM SINGING WAITER OR WAITRESS Office Visit [facility] Medical Group Multispecialty Care - [facility] 3 [facility], [address] [place] [address] Julio Pulido MD 3 [place] [address] documented as of this encounter Goals Goal Patient Goal Type Associated Problems Recent Progress Patient-Stated? Author Health - patient able to perform ADLs independently General On track(2023 9:49 AM CDT) Dianne Corona RN Note: 12/17/23: Patient stated she is independent with ASL's. Establish Plan for Symptom Monitoring-CHF General On track(2023 11:36 AM SINGING WAITER OR WAITRESS) Dianne Corona RN Note: Patient will recognize [...] Symptom Monitoring-COPD General On track(2023 11:36 AM SINGING WAITER OR WAITRESS) Dianne Corona RN Note: Patient will recognize [...] Symptom Monitoring-DM General On track(2023 4:33 PM SINGING WAITER OR WAITRESS) Dianne Corona RN Note: Patient will manage [...] Symptom Monitoring-HTN General On track(2023 4:33 PM SINGING WAITER OR WAITRESS) Dianne Corona, RN Note: Patient will monitor [...] documented as of this encounter Care Teams Biotechnologist Relationship Specialty Start Date End Date Sanjeev Webster DO [address] [place] [address] PCP - General FAMILY PRACTICE 09/25/20 Dianne Johnson, RN [address] [place] [address] Local Sales Manager (Ambulatory) REGISTERED NURSE 08/14/20 documented as of this encounter
--- OUTSIDE RECORDS SUMMARY | 2024-03-15 00:56 | XMS_ITS | Encounter Summary ---
Author Organization [facility] Address Critical access hospital6 [place] [address] [place] [address] Care Team Providers Care Physician General Practice Name Role Phone Dianne Johnson RN Unavailable [phone] Sanjeev Webster DO Primary Care Provider + Encounter Details Date Type Department Care Team (Late st Contact Info) Description 03/12/2023 Patient Outreach [facility] Medical Group Family & Internal Medicine [facility] [address] [place] [address] Sanjeev Webster DO [address] [place] [address] Social History Tobacco Use Types [...] Recorded Patient Health Questionnaire-2 Score 6 12/11/2022 [facility] - [...] documented in this encounter Progress Notes * Tricia Gonzales CMA - 03/12/2023 11:41 AM CST I am a patient quality advocate calling this patient on behalf of the [facility] work team to assess the below quality gaps. If you need to contact me directly- my number is [phone]. Preventive Screenings: Breast Cancer Screening: N/A Notes: Colorectal Cancer Screening: N/A Notes: Diabetic Eye Exam: Up to Date Notes: 04/21/2024 Falls Risk Screening: Needs Follow Up Notes: Tobacco Cessation: N/A Notes: Labs: BMP/CMP: Up to Date Notes: Hemoglobin A1c: Up to Date Notes: Lipid: Up to Date Notes: Urine Albumin-Creatinine Ratio: Up to Date Notes: Immunizations: Influenza: Up to Date Notes: Pneumococcal: Up to Date Notes: Shingles: Up to Date Notes: K PRINT OPERATOR documented in this encounter Plan of Treatment Upcoming Encounters Date Type Department Care Team (Late st Contact Info) Description 04/14/2024 2:00 PM QUICK PRINT OPERATOR Office Visit [facility] Medical Group Multispecialty Care - [facility] [address] [facility], [address] [place] [address] Julio Pulido MD [address] [place] [address] documented as of this encounter Goals Goal Patient Goal Type Associated Problems Recent Progress Patient-Stated? Author Health - patient able to perform ADLs independently General On track(2023 9:49 AM CDT) No Dianne Johnson, RN Note: 12/17/23: Patient stated she is independent with ASL's. Establish Plan for Symptom Monitoring-CHF General On track(2023 11:36 AM QUICK PRINT OPERATOR) Dianne Corona RN Note: Patient will [...] Symptom Monitoring-COPD General On track(2023 11:36 AM QUICK PRINT OPERATOR) Dianne Corona RN Note: Patient will [...] Symptom Monitoring-DM General On track(2023 4:33 PM QUICK PRINT OPERATOR) Dianne Corona RN Note: Patient will [...] Symptom Monitoring-HTN General On track(2023 4:33 PM QUICK PRINT OPERATOR) No Dianne Johnson, RN Note: Patient [...] documented as of this encounter Care Teams Physician General Practice Relationship Specialty Start Date End Date Sanjeev Webster DO [address] [place] [address] PCP - General FAMILY PRACTICE 09/25/20 Dianne Johnson, RN [address] [place] [address] Dredging Inspector (Ambulatory) REGISTERED NURSE 08/14/20 documented as of this encounter
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
--- OUTSIDE RECORDS SUMMARY | 2024-03-15 00:56 | XMS_ITS | Encounter Summary ---
Author Organization [facility] Address Critical access hospital6 [facility] [place] [address] [place] [address] Care Team Providers Care Rolling Up Machine Operator Name Role Phone Dianne Johnson RN Unavailable [phone] Sanjeev Webster DO Primary Care Provider + Reason for Visit * Reason Comments Lab (SCAN) Encounter Details Date Type Department Care Team (Latest Contact Info) Description 02/03/2023 Scan HEALTH INFO SRVCS Scanned, Doc Med [...] Questionnaire-2 Score 6 [facility]20[facility] Questionnaire Answer [...] st Contact Info) Description 04/14/2024 2:00 PM STATION SUPERINTENDENT Office Visit [facility] Medical Group Multispecialty Care - [facility] 3 [facility], [address] [place] [address] Julio Pulido MD [address] [place] [address] documented as of this encounter Goals Goal Patient Goal Type Associated Problems Recent Progress Patient-Stated? Author Health - patient able to perform ADLs independently General On track(2023 9:49 AM CDT) Dianne Corona RN Note: 12/17/23: Patient stated she is independent with ASL's. Establish Plan for Symptom Monitoring-CHF General On track(2023 11:36 AM STATION SUPERINTENDENT) Dianne Corona RN Note: Patient will [...] Symptom Monitoring-COPD General On track(2023 11:36 AM STATION SUPERINTENDENT) Dianne Corona RN Note: Patient will [...] Symptom Monitoring-DM General On track(2023 4:33 PM STATION SUPERINTENDENT) Dianne Corona, RN Note: Patient will [...] Symptom Monitoring-HTN General On track(2023 4:33 PM STATION SUPERINTENDENT) Dianne Corona, RN Note: Patient will monitor B/P several times per week , record readings and report to physician or CC if B/P consistently >130/80 Take your medications as prescribed. Follow up with your provider as scheduled. Take your blood pressure at least several times a week if able. documented as of this encounter Procedures Procedure Name Priority Date/Time Associated Diagnosis Comments HEP C SCANNED ORDERS Routine 02/03/2023 documented in this encounter Results * HEP C SCANNED ORDERS (02/03/2023) [facility] Scanned SCANNING Final Resu lt [facility] ONBASE documented in this encounter Visit Diagnoses Not on filedocumented in this encounter Additional Health Concerns Assessment Noted Time PHQ-9 Depression Total Score: 13 023 3:56 PM CDT documented as of this encounter Care Teams Rolling Up Machine Operator Relationship Specialty Start Date End Date Sanjeev Webster DO [address] [place] [address] PCP - General FAMILY PRACTICE 09/25/20 Dianne Johnson, RN [address] [place] [address] Payroll Bookkeeper (Ambulatory) REGISTERED NURSE 08/14/20 documented as of this encounter
--- OUTSIDE RECORDS SUMMARY | 2024-03-15 00:56 | XMS_ITS | Encounter Summary ---
Author Organization [facility] Address [facility] [facility] [place] [address] [place] [address] Care Team Providers Care Mail Distribution Clerk Name Role Phone Dianne Johnson RN Unavailable [phone] Sanjeev Webster DO Primary Care Provider + Reason for Visit * Reason Comments Allied Health Visit INR Encounter Details Date Type Department Care Team (Latest Contact Info) Description 03/18/2023 11:20 AM UNMANNED EQUIPMENT OPERATOR Allied Health/Nurse Visit [facility] Family & Internal Medicine [facility] [address] [place] [address] Sanjeev Webster DO [address] [place] [address] Allied Health Visit (INR) Social [...] Progress Notes * Natalee Brown RN - 03/18/2023 11:20 AM CST Patient in today for INR finger stick. Patient tolerated well. Patient's results was 4.6. Per [facility] protocol, this nurse did PT/INR blood draw. Patient also tolerated well. Patient is currently taking8 mg Thursday- Thursday and 7 mg Thursday - . Will call patient back with PCP recommendation. Opportunity given for all questions to be answered, no further needs voiced at this time. LL-03/18/23 NNED EQUIPMENT OPERATOR * Natalee Brown RN - 03/18/2023 11:20 AM CST PCP gave verbal order to hold warfarin dose today and resume 7 mg daily. Then recheck on Thursday03/23/23. Opportunity given for all questions to be answered, no further needs voiced at this time. LL-03/18/23 NNED EQUIPMENT OPERATOR documented in this encounter Plan of Treatment Upcoming Encounters Date Type Department Care Team (Late st Contact Info) Description 04/14/2024 2:00 PM UNMANNED EQUIPMENT OPERATOR Office Visit [facility] Multispecialty Care - [facility] [address] [facility], [address] [place] [id number] Julio Pulido MD [address] [place] [address] documented as of this encounter Goals Goal Patient Goal Type Associated Problems Recent Progress Patient-Stated? Author Health - patient able to perform ADLs independently General On track(2023 9:49 AM CDT) Dianne Corona RN Note: 12/17/23: Patient stated she is independent with ASL's. Establish Plan for Symptom Monitoring-CHF General On track(2023 11:36 AM UNMANNED EQUIPMENT OPERATOR) Dianne Corona RN Note: Patient will [...] Symptom Monitoring-COPD General On track(2023 11:36 AM UNMANNED EQUIPMENT OPERATOR) Dianne Corona RN Note: Patient will [...] Symptom Monitoring-DM General On track(2023 4:33 PM UNMANNED EQUIPMENT OPERATOR) Dianne Corona RN Note: Patient will [...] Symptom Monitoring-HTN General On track(2023 4:33 PM UNMANNED EQUIPMENT OPERATOR) Dianne Corona RN Note: Patient will [...] Diagnosis Comments COLLECTION VENOUS BLOOD VENIPUNCTURE Routine 03/18/2023 11:47 AM UNMANNED EQUIPMENT OPERATOR Chronic anticoagulation Elevated INR PROTHROMBIN TIME, VENOUS Routine 03/18/2023 11:46 AM UNMANNED EQUIPMENT OPERATOR Chronic anticoagulation COLLECT.CAPILLARY (FNGR,HEEL,EAR) Routine 03/18/2023 11:30 AM UNMANNED EQUIPMENT OPERATOR Chronic anticoagulation PROTHROMBIN TIME, FINGERSTICK Routine 03/18/2023 Chronic anticoagulation documented in this encounter Results * (ABNORMAL) PROTIME/INR, VENOUS (03/18/2023 11:46 AM UNMANNED EQUIPMENT OPERATOR) PROTIME 37.8(H) 9.3 - 11.6 SEC 03/18/2023 3:47 PM UNMANNED EQUIPMENT OPERATOR -MISA DIXON INR 4.0(H) 0.9 - 1.1 03/18/2023 3:47 PM UNMANNED EQUIPMENT OPERATOR [facility] [place] Comment: TREATMENT OR PROPHYLAXIS AGAINST: ?? THERAPEUTIC RANGE (INR): ?VENOUS THROMBOSIS ? 2.0-3.0 ?PULMONARY EMBOLUS ? 2.0-3.0 ?? MECHANICAL PROSTHETIC VALVES ? 2.5-3.5 03/18/2023 11:4 6 AM UNMANNED EQUIPMENT OPERATOR Sanjeev Webster DO LABORATORY Final Re sult Performing Organization Address City/[facility]/ZIP Co de Phone Number [facility] [address] [place] [address], [place] [phone] * PROTIME/INR, FINGERSTICK (03/18/2023) INR WHOLE BLOOD 4.60 [facility] 03/18/2023 Sanjeev Webster DO LABORATORY Final Re sult Performing Organization Address [facility] de Phone Number [facility] [address] [place] [address], documented in this encounter Visit Diagnoses Diagnosis Chronic anticoagulation- Primary Encounter for long-term (current) use of anticoagulants Elevated INR Abnormal coagulation profile documented in this encounter Additional Health Concerns Assessment Noted Time PHQ-9 Depression Total Score: 13 023 3:56 PM CDT documented as of this encounter Care Teams Mail Distribution Clerk Relationship Specialty Start Date End Date Sanjeev Webster DO [address] [place] [address] PCP - General FAMILY PRACTICE 09/25/20 Dianne Johnson, RN [address] [place] [address] Biometric Fingerprinting Technician (Ambulatory) REGISTERED NURSE 08/14/20 documented as of this encounter
--- OUTSIDE RECORDS SUMMARY | 2024-03-15 00:56 | XMS_ITS | Encounter Summary ---
Author Organization [facility] Address [facility] [place] [address] [place] [address] Care Team Providers Care Logistics Technician Name Role Phone Dianne Johnson RN Unavailable [phone] Sanjeev Webster DO Primary Care Provider + [...] Recorded Patient Health Questionnaire-2 Score 6 12/11/2022 [facility] - Occupational Stress Questionnaire Answer [...] st Contact Info) Description 04/14/2024 2:00 PM [employer] POLICE OFFICER Office Visit [facility] Multispecialty Care - [facility] [address] [facility], [address] [place] [address] Julio Pulido MD [address] [place] [address] documented as of this encounter Goals Goal Patient Goal Type Associated Problems Recent Progress Patient-Stated? Author Health - patient able to perform ADLs independently General On track(2023 9:49 AM CDT) Dianne Corona RN Note: 12/17/23: Patient stated she is independent with ASL's. Establish Plan for Symptom Monitoring-CHF General On track(2023 11:36 AM [employer]ICE OFFICER) Dianne Corona RN Note: Patient will [...] Symptom Monitoring-COPD General On track(2023 11:36 AM [employer] POLICE OFFICER) Dianne Corona RN Note: Patient will [...] Symptom Monitoring-DM General On track(2023 4:33 PM [employer]ICE OFFICER) Dianne Corona, RN Note: Patient will manage [...] Symptom Monitoring-HTN General On track(2023 4:33 PM [employer]ICE OFFICER) Dainne Corona, RN Note: Patient will monitor [...] documented as of this encounter Care Teams Logistics Technician Relationship Specialty Start Date End Date Sanjeev Webster DO [address] [place] [address] PCP - General FAMILY PRACTICE 09/25/20 Dianne Johnson, RN [address] [place] [address] Electrical Tech (Ambulatory) REGISTERED NURSE 08/14/20 documented as of this encounter
--- OUTSIDE RECORDS SUMMARY | 2024-03-15 00:56 | XMS_ITS | Encounter Summary ---
Author Organization [facility] Address [facility] [place] [address] [place] [address] Care Team Providers Care Bleach Analyst Name Role Phone Casey Johnson RN Unavailable Sanjeev Webster DO Primary Care Provider + Reason for Visit * Reason Onset Date Comments Care Management 03/04/2023 Encounter Details Date Type Department Care Team (Late st Contact Info) Description 03/04/2023 Patient Outreach [facility] Family & Internal Medicine [address] [address] Casey Johnson, RN [address] [place] [address] Care Management Social History Tobacco [...] Recorded Patient Health Questionnaire-2 Score 6 12/11/2022 [facility] [...] Progress Notes * Casey Johnson RN - 03/04/2023 7:39 AM CST Left message for patient to return phone call. 03/05/23: Contacted patient. See note for details. URCE PROGRAM TEACHER * Casey Johnson RN - 03/04/2023 7:39 AM CST Chronic Care Management: Patient concerns or urgent matters that need addressed: Non identified during this phone call. Patient Status: Contacted patient today regarding CT scan scheduled on 03/03/23 she didn't attend. Patient stated she was unaware of CT scan scheduled on 03/03/23. Reports being sick since yesterday. Stated she's been coughing and stayed in bed all day yesterday. Reports body aches all over and sick to stomach. Offered an appointment and patient declined. Stated she feels better this morning. Instructed on BRAT diet with upset stomach. Denies fever and sometimes coughing up white mucus. Reports clear runnynose. Instructed patient to stay hydrated and use humidifier. Patient stated she has a nose spray she is using. She is not in the room with the nose spray and unable to give CC the name of nose spray. Stated she was prescribed this nose spray a while ago. Patient denies worsening sob. Stated she isalmost out of albuterol and will need a refill. CC will reach out to pharmacy since she has refillson file. Patient aware CC will call her back about CT appointment. Denies COPD or CHF exacerbation s/s at this time. Encouraged to call at the onset of any changes. Patient stated she is not checking her BS at this time and not on any DM medication. 03/05/23: Contacted [facility] pharmacy and spoke to Shakir. Patient almost out of albuterol inhaler andrequesting refill. According to medication list patient should have refills left. Shakir stated patient has refills and he will get it ready for her to pickle pumper in a couple of hours. 03/05/23: Contacted [facility] scheduling department and spoke to Galilea. Requesting to reschedule CT scanfrom 03/03/23 at 1:00 PM. Galilea scheduled patient on 04/09/23 at 2:15 PM. Stated NPO 2 hours prior. Contacted patient with this information and noticed patient scheduled to see Neurosurgeon on 04/09/23 at 1:40 PM for brain aneurysm. Patient needs CT scan scheduled prior to appointment. Informed patient CC will reschedule CT scan. 03/05/23: Contacted Evelia with [facility] scheduling department. Rescheduled CT scan of brain for 04/07/23 arrive at 1:45 PM. NPO 2 hours prior. 03/05/23: Left message for patient to return CC phone call. 02/07/23: Spoke to patient and gave her the above information. She wrote it down on her calendar andverbalizes understanding. Plan of Care: care transition coordinator will continue to follow up by [...] Future Appointments Date Time Provider Department Center 03/16/2023 1:00 PM Sanjeev Webster DO [id number] 04/07/2023 2:[address] 1 SEOCT [facility] 04/09/2023 1:40 PM Julio Pulido MD [facility] 04/10/2023 1:00 PM [facility] 04/14/2023 3:00 PM [facility] MRI SEOMRI [facility] 04/14/2023 4:00 PM [facility] MRI SEOMRI [facility] 09/04/2023 1:00 PM Sania Gomez MD [facility] Quality care gaps: Health Maintenance Topic [...] test Chronic anticoagulation Coronary artery disease involving [place] coronary artery of [place] heart without angina pectoris Dyspnea on exertion H/O mechanical aortic valve replacement Hypertensive heart disease with congestive heart failure ([facility]) ([facility]) LBBB (left bundle branch block) Myopathy VAZQUEZ (obstructive sleep apnea) Paroxysmal atrial flutter ([facility]) ([facility]) Benign hypertension with CKD (chronic kidney disease) stage III ([facility]) Memory deficits Hearing deficit, bilateral History of cataract extraction, unspecified laterality Vitamin D deficiency Hypercalcemia Chronic frontal sinusitis Constipation, unspecified constipation type Chronic bilateral low back pain without sciatica Iron deficiency anemia, unspecified iron deficiency anemia type Disorder of skin of trunk Anemia Body mass index (BMI) 31.0-31.9, adult 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[facility]) Benign hypertension with stage 3b chronic kidney disease ([facility]) Cobalamin deficiency Compression fracture of thoracic vertebra ([facility]) ([facility]) Depression Diabetic polyneuropathy ([facility]) ([facility]) Disorder of rotator cuff Diverticular disease Dysphagia Elevated troponin Gastroesophageal reflux disease without esophagitis Hyperlipidemia, unspecified hyperlipidemia type Vascular dementia ([facility]) Unknown and unspecified causes of morbidity Syncope, unspecified syncope type Wrist joint pain Respiratory illness Requires lifelong warfarin therapy Secondary hyperparathyroidism ([facility]) ([facility]) Presence of prosthetic heart valve Plantar fascial fibromatosis Peripheral neuropathy Parathyroid adenoma Polymyalgia rheumatica ([facility]) ([facility]) Osteoporosis Numbness Muscle cramps Closed stable burst fracture of sixth thoracic vertebra, initial encounter ([facility]) ([facility]) Chest pain Contusion of scalp Knee pain Localized, primary osteoarthritis Osteoarthritis of knee Traumatic closed displaced fracture of distal end of radius Shoulder joint pain Hyperlipidemia associated with type 2 diabetes mellitus ([facility]) ([facility]) PVD (peripheral vascular disease) ([facility]) Hematoma Anxiety Diastolic heart failure ([facility]) ([facility]) Internal hemorrhoids Leukoencephalopathy Major depression single episode, in partial remission ([facility]) Metacarpal bone fracture Mitral valve disorder Peripheral arterial occlusive disease ([facility]) Primary osteoarthritis involving multiple joints Vision loss COPD (chronic obstructive pulmonary disease) ([facility]) ([facility]) Diarrhea Drug-induced constipation H/O mechanical aortic valve replacement Age-related osteoporosis with current pathological fracture Care Management Physical deconditioning Chronic heart failure with preserved ejection fraction (HFpEF) ([facility]) ([facility]) Paroxysmal atrial fibrillation ([facility]) ([facility]) Hypertension associated with type 2 diabetes mellitus ([facility]) ([facility]) Encounter for prophylactic measures, unspecified Graves' disease Cirrhosis of liver without ascites, unspecified hepatic cirrhosis type ([facility]) ([facility]) Stage 3b chronic kidney disease ([facility]) OLIVE (acute kidney injury) ([facility]) Heart failure with mildly reduced ejection fraction (HFmrEF) ([facility]) ([facility]) Medications: Current Outpatient Medications Medication Sig Dispense [...] with Patient Time spent with patient (minutes): 42 (Comment: Time spent with patient, [facility] pharmacy and [facility] scheduling department.) Time spent performing chart review (minutes): 9 Total time (minutes): 51 CASEY JOHNSON RN I reviewed the patient's status and education provided by CASEY JOHNSON RN. I agree with the findings and recommendations made. Cosigned by Sanjeev Webster DO at 03/06/2023 8:55 AM RESOURCE PROGRAM TEACHER URCE PROGRAM TEACHER URCE PROGRAM TEACHER documented in this encounter Plan of Treatment Upcoming Encounters Date Type Department Care Team (Late st Contact Info) Description 04/14/2024 2:00 PM RESOURCE PROGRAM TEACHER Office Visit [facility] Multispecialty Care - Health system [address] [facility], [address] [place] [address] Julio Pulido MD [address] [place] [address] documented as of this encounter Goals Goal Patient Goal Type Associated Problems Recent Progress Patient-Stated? Author Health - patient able to perform ADLs independently General On track(2023 9:49 AM CDT) Casey Corona RN Note: 12/17/23: Patient stated she is independent with ASL's. Establish Plan for Symptom Monitoring-CHF General On track(2023 11:36 AM RESOURCE PROGRAM TEACHER) Casey Corona RN Note: Patient will recognize [...] Symptom Monitoring-COPD General On track(2023 11:36 AM RESOURCE PROGRAM TEACHER) Casey Corona RN Note: Patient will recognize [...] Symptom Monitoring-DM General On track(2023 4:33 PM RESOURCE PROGRAM TEACHER) Casey Corona RN Note: Patient will manage [...] Symptom Monitoring-HTN General On track(2023 4:33 PM RESOURCE PROGRAM TEACHER) Casey Corona RN Note: Patient will monitor [...] Chronic obstructive pulmonary disease, unspecified COPD type ([facility])- Primary Chronic heart failure with preserved ejection fraction (HFpEF) ([facility]) Type 2 diabetes mellitus with stage 3b chronic kidney disease, without long-term current use of insulin ([facility]) documented in this encounter Additional Health Concerns Assessment Noted Time PHQ-9 Depression Total Score: 13 023 3:56 PM CDT documented as of this encounter Care Teams Bleach Analyst Relationship Specialty Start Date End Date Sanjeev Webster DO [address] [place] [address] PCP - General FAMILY PRACTICE 09/25/20 Casey Johnson, RN [address] [place] [address] Hand Plug Shaper (Ambulatory) REGISTERED NURSE 08/14/20 documented as of this encounter
--- OUTSIDE RECORDS SUMMARY | 2024-03-15 00:56 | XMS_ITS | Encounter Summary ---
Author Organization [facility] Address [facility] [facility]. [place], [place] [address] [place] [address] Care Team Providers Care Government Clerk Name Role Phone Dianne Johnson RN Unavailable [phone] Sanjeev Webster DO Primary Care Provider + Reason for Visit * Reason Onset Date Comments Referral 02/12/2023 Encounter Details Date Type Department Care Team (Late st Contact Info) Description 02/12/2023 Telephone [facility] Family & Internal Medicine [id number] [place] [address] Sanjeev Webster DO [facility] [place] [address] Referral Social History Tobacco Use [...] Patient Health Questionnaire-2 Score 6 12/11/2022 [facility] - [...] Progress Notes * Dianne Johnson RN - 02/12/2023 3:35 PM CST Patient wanting to know if someone will call her about imaging at [facility] ordered by . 02/12: Contacted Teetee in the referral department. She will try to obtain authorization for MRI lumbar and C-Spine. If she gets an auto approval she will contact patient and transfer her to scheduling at [facility]. If she doesn't get it auto approved she will call patient, get scheduling on the phone and get her scheduled for both MRI's and bone density. Stated bone density doesn't need approval but she will make sure scheduling gets her set up for bone density as well. 02/12/23: Attempted to contact patient regarding the above. Left message to return phone call. 02/16/23: Contacted patient and she stated someone contacted her about MRI's. Reviewed appointment details and bone density not scheduled. CC will look into it. Confirmed appointment with today at 10:40 am. Patient verbalizes understanding. 02/17/23: Contacted [facility] central scheduling and spoke to Jadyn. She stated patient is scheduled for a bone density in the mammography department on 02/24/23 at 9:30 am. Attempted to contact patient regarding bone density appointment. No answer and unable to leave a message at this time. 02/17/23: Contacted patient about the above appointment for bone density. She wrote down the appointment details and thanked CC for calling. GE AIDE documented in this encounter Plan of Treatment Upcoming Encounters Date Type Department Care Team (Late st Contact Info) Description 04/14/2024 2:00 PM CHARGE AIDE Office Visit [facility] Multispecialty Care - [address] [place] [id number] Julio Pulido MD [address] [place] [address] documented as of this encounter Goals Goal Patient Goal Type Associated Problems Recent Progress Patient-Stated? Author Health - patient able to perform ADLs independently General On track(2023 9:49 AM CDT) Dianne Corona RN Note: 12/17/23: Patient stated she is independent with ASL's. Establish Plan for Symptom Monitoring-CHF General On track(2023 11:36 AM CHARGE AIDE) Dianne Corona RN Note: Patient will [...] Symptom Monitoring-COPD General On track(2023 11:36 AM CHARGE AIDE) Dianne Corona RN Note: Patient will [...] Symptom Monitoring-DM General On track(2023 4:33 PM CHARGE AIDE) Dianne Corona RN Note: Patient will [...] Symptom Monitoring-HTN General On track(2023 4:33 PM CHARGE AIDE) No Dianne Johnson RN Note: Patient will [...] documented as of this encounter Care Teams Government Clerk Relationship Specialty Start Date End Date Sanjeev Webster DO [address] [place] [address] PCP - General FAMILY PRACTICE 09/25/20 Dianne Johnson RN [address] [place] [address] Mortgage Loan Coordinator (Ambulatory) REGISTERED NURSE 08/14/20 documented as of this encounter
--- OUTSIDE RECORDS SUMMARY | 2024-03-15 00:56 | XMS_ITS | Encounter Summary ---
Author Organization [facility] Address [facility] [place] [address] [place] [address] Care Team Providers Care Management Information Systems Director Name Role Phone Dianne Johnson RN Unavailable [phone] Sanjeev Webster DO Primary Care Provider + Reason for Visit * Reason Onset Date Comments Refill Request 03/12/2023 Encounter Details Date Type Department Care Team (Late st Contact Info) Description 03/12/2023 Telephone [facility] Family & Internal Medicine [facility] [address] [place] [address] Sanjeev Webster DO [address] [place] [address] Refill Request Social History Tobacco Use Types [...] encounter Progress Notes * Lashawn Vega - 03/12/2023 2:34 PM CST Pt needs refill on hydrocodone. Pharmacy [facility]. D WELFARE SOCIAL WORKER documented in this encounter Plan of Treatment Upcoming Encounters Date Type Department Care Team (Late st Contact Info) Description 04/14/2024 2:00 PM CHILD WELFARE SOCIAL WORKER Office Visit [facility] Multispecialty Care - [facility] [address] [facility], [address] [place] [address] Julio Pulido MD [address] [place] [address] documented as of this encounter Goals Goal Patient Goal Type Associated Problems Recent Progress Patient-Stated? Author Health - patient able to perform ADLs independently General On track(2023 9:49 AM CDT) Dianne Corona RN Note: 12/17/23: Patient stated she is independent with ASL's. Establish Plan for Symptom Monitoring-CHF General On track(2023 11:36 AM CHILD WELFARE SOCIAL WORKER) Dianne Corona RN Note: Patient [...] Symptom Monitoring-COPD General On track(2023 11:36 AM CHILD WELFARE SOCIAL WORKER) Dianne Corona RN Note: Patient [...] Symptom Monitoring-DM General On track(2023 4:33 PM CHILD WELFARE SOCIAL WORKER) Dianne Corona RN Note: Patient [...] Symptom Monitoring-HTN General On track(2023 4:33 PM CHILD WELFARE SOCIAL WORKER) Dianne Corona RN Note: Patient [...] documented as of this encounter Care Teams Management Information Systems Director Relationship Specialty Start Date End Date Sanjeev Webster DO [address] [place] [id number] PCP - General FAMILY PRACTICE 09/25/20 Dianne Johnson, RN [address] [place] [phone] Furnace Cooler (Ambulatory) REGISTERED NURSE 08/14/20 documented as of this encounter
--- OUTSIDE RECORDS SUMMARY | 2024-03-15 00:56 | XMS_ITS | Encounter Summary ---
Author Organization [facility] Address [facility]6 [facility] [place] [address] [place] [address] Care Team Providers Care Parts Department Manager Name Role Phone Casey Johnson RN Unavailable [phone] Sanjeev Webster DO Primary Care Provider + Reason for Visit * Reason Onset Date Comments Care Management 02/23/2023 Encounter Details Date Type Department Care Team (Late st Contact Info) Description 02/23/2023 Patient Outreach [facility] Family & Internal Medicine [address] [address] Casey Johnson, RN [address] [place] [address] Care Management Social History Tobacco [...] Recorded Patient Health Questionnaire-2 Score 6 12/11/2022 [facility] [...] Progress Notes * Casey Johnson RN - 02/23/2023 7:54 AM CST Chronic Care Management: Patient concerns or urgent matters that need addressed: Non identified during this phone call. Patient Status: Contacted patient to remind her of bone density test scheduled at [facility] tomorrow at 9:30 am and appointment scheduled with (Professor Of Environmental Studies) at [facility] at [address] [place] [address]. on 02/27/23 at 12:00 PM. Please arrive 15 minutes early to register. If you need to reschedule; please contact 's office at [phone]. Patient wrote down the above information and thanked CC for calling her to remind her. She denies any issues currently with COPD or CHF exacerbation s/s. Stated she is doing well. Encouraged to call CC at the onset of any changes. Patient verbalizes understanding and thanked CC for calling. Plan of Care: fleet coordinator will continue to follow up by [...] Future Appointments Date Time Provider Department Center 02/24/2023 9:30 AM ALEX BONE DENSITY [facility] 02/27/2023 12:00 PM Sania Gomez MD MARYP[facility]L P[facility] 03/03/2023 1:[address] 1 [facility] 03/16/2023 1:00 PM Sanjeev Webster DO MGFMMRVL [facility] [place] 04/09/2023 1:40 PM Julio Pulido MD MG[facility]OF [facility] 04/14/2023 3:00 PM ALEX MRI [facility] 04/14/2023 4:00 PM ALEX MRI [facility] Quality care gaps: Health Maintenance Topic [...] test Chronic anticoagulation Coronary artery disease involving alutiiq coronary artery of alutiiq heart without angina pectoris Dyspnea on exertion H/O mechanical aortic valve replacement Hypertensive heart disease with congestive heart failure (HHS/HCC) (CMS/HCC) LBBB (left bundle branch block) Myopathy VAZQUEZ (obstructive sleep apnea) Paroxysmal atrial flutter ([facility]) ([facility]) Benign hypertension with CKD (chronic kidney disease) stage III ([facility]) Memory deficits Hearing deficit, bilateral History of cataract extraction, unspecified laterality Vitamin D deficiency Hypercalcemia Chronic frontal sinusitis Constipation, unspecified constipation type Chronic bilateral low back pain without sciatica Iron deficiency anemia, unspecified iron deficiency anemia type Disorder of skin of trunk Anemia Body mass index (BMI) 31.0-31.9, adult 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[facility]) Benign hypertension with stage 3b chronic kidney disease ([facility]) Cobalamin deficiency Compression fracture of thoracic vertebra ([facility]) ([facility]) Depression Diabetic polyneuropathy ([facility]) ([facility]) Disorder of rotator cuff Diverticular disease Dysphagia Elevated troponin Gastroesophageal reflux disease without esophagitis Hyperlipidemia, unspecified hyperlipidemia type Vascular dementia ([facility]) Unknown and unspecified causes of morbidity Syncope, unspecified syncope type Wrist joint pain Respiratory illness Requires lifelong warfarin therapy Secondary hyperparathyroidism ([facility]) ([facility]) Presence of prosthetic heart valve Plantar fascial fibromatosis Peripheral neuropathy Parathyroid adenoma Polymyalgia rheumatica ([facility]) ([facility]) Osteoporosis Numbness Muscle cramps Closed stable burst fracture of sixth thoracic vertebra, initial encounter ([facility]) ([facility]) Chest pain Contusion of scalp Knee pain Localized, primary osteoarthritis Osteoarthritis of knee Traumatic closed displaced fracture of distal end of radius Shoulder joint pain Hyperlipidemia associated with type 2 diabetes mellitus ([facility]) ([facility]) PVD (peripheral vascular disease) ([facility]) Hematoma Anxiety Diastolic heart failure ([facility]) ([facility]) Internal hemorrhoids Leukoencephalopathy Major depression single episode, in partial remission ([facility]) Metacarpal bone fracture Mitral valve disorder Peripheral arterial occlusive disease ([facility]) Primary osteoarthritis involving multiple joints Vision loss COPD (chronic obstructive pulmonary disease) ([facility]) ([facility]) Diarrhea Drug-induced constipation H/O mechanical aortic valve replacement Age-related osteoporosis with current pathological fracture Care Management Physical deconditioning Chronic heart failure with preserved ejection fraction (HFpEF) ([facility]) ([facility]) Paroxysmal atrial fibrillation ([facility]) ([facility]) Hypertension associated with type 2 diabetes mellitus ([facility]) ([facility]) Encounter for prophylactic measures, unspecified Graves' disease Cirrhosis of liver without ascites, unspecified hepatic cirrhosis type (HHS/HCC) ([facility]) Stage 3b chronic kidney disease ([facility]) OLIVE (acute kidney injury) ([facility]) Heart failure with mildly reduced ejection fraction (HFmrEF) ([facility]) ([facility]) Medications: Current Outpatient Medications Medication Sig Dispense [...] made. Cosigned by Sanjeev Webster DO at 02/23/2023 10:55 PM STONECUTTER APPRENTICE HAND ECUTTER APPRENTICE HAND ECUTTER APPRENTICE HAND documented in this encounter Plan of Treatment Upcoming Encounters Date Type Department Care Team (Late st Contact Info) Description 04/14/2024 2:00 PM STONECUTTER APPRENTICE HAND Office Visit [facility] Multispecialty Care - [facility] [address] [facility], [address] [place] [id number] Julio Pulido MD [address] [place] [address] documented as of this encounter Goals Goal Patient Goal Type Associated Problems Recent Progress Patient-Stated? Author Health - patient able to perform ADLs independently General On track(2023 9:49 AM CDT) Casey Corona RN Note: 12/17/23: Patient stated she is independent with ASL's. Establish Plan for Symptom Monitoring-CHF General On track(2023 11:36 AM STONECUTTER APPRENTICE HAND) Casey Corona RN Note: Patient will recognize [...] Symptom Monitoring-COPD General On track(2023 11:36 AM STONECUTTER APPRENTICE HAND) Casey Corona RN Note: Patient will recognize [...] Symptom Monitoring-DM General On track(2023 4:33 PM STONECUTTER APPRENTICE HAND) Casey Corona RN Note: Patient will manage [...] Symptom Monitoring-HTN General On track(2023 4:33 PM STONECUTTER APPRENTICE HAND) No Casey Johnson RN Note: Patient will monitor B/P several times per week , record readings and report to physician or CC if B/P consistently >130/80 Take your medications as prescribed. Follow up with your provider as scheduled. Take your blood pressure at least several times a week if able. documented as of this encounter Visit Diagnoses Diagnosis Chronic obstructive pulmonary disease, unspecified COPD type ([facility])- Primary Chronic heart failure with preserved ejection fraction (HFpEF) ([facility]) documented in this encounter Additional Health Concerns Assessment Noted Time PHQ-9 Depression Total Score: 13 023 3:56 PM CDT documented as of this encounter Care Teams Parts Department Manager Relationship Specialty Start Date End Date Sanjeev Webster DO [address] [place] [phone] PCP - General FAMILY PRACTICE 09/25/20 Casey Johnson RN [address] [place] [address] Poultry Slaughterer (Ambulatory) REGISTERED NURSE 08/14/20 documented as of this encounter
--- OUTSIDE RECORDS SUMMARY | 2024-03-15 00:56 | XMS_ITS | Encounter Summary ---
Author Organization [facility] Address [facility]6 [facility] [place] [address] [place] [address] Care Team Providers Care Jack Strip Assembler Name Role Phone Dianne Johnson RN Unavailable [phone] Sanjeev Webster DO Primary Care Provider + Encounter Details Date Type Department Care Team (Latest Contact Info) Description 02/16/2023 Travel Social History Tobacco Use Types Packs/Day [...] Recorded Patient Health Questionnaire-2 Score 6 12/11/2022 [facility] [...] st Contact Info) Description 04/14/2024 2:00 PM WORKFORCE DEVELOPMENT PROGRAM DIRECTOR Office Visit [facility] Multispecialty Care - [facility] [address] [facility], [address] [place] [address] Julio Pulido MD [address] [place] [address] documented as of this encounter Goals Goal Patient Goal Type Associated Problems Recent Progress Patient-Stated? Author Health - patient able to perform ADLs independently General On track(2023 9:49 AM CDT) Dianne Corona RN Note: 12/17/23: Patient stated she is independent with ASL's. Establish Plan for Symptom Monitoring-CHF General On track(2023 11:36 AM WORKFORCE DEVELOPMENT PROGRAM DIRECTOR) Dianne Corona RN Note: Patient will [...] Symptom Monitoring-COPD General On track(2023 11:36 AM WORKFORCE DEVELOPMENT PROGRAM DIRECTOR) Dianne Corona RN Note: Patient will [...] Symptom Monitoring-DM General On track(2023 4:33 PM WORKFORCE DEVELOPMENT PROGRAM DIRECTOR) Dianne Corona RN Note: Patient will [...] Symptom Monitoring-HTN General On track(2023 4:33 PM WORKFORCE DEVELOPMENT PROGRAM DIRECTOR) Dianne Corona, RN Note: Patient will [...] documented as of this encounter Care Teams Jack Strip Assembler Relationship Specialty Start Date End Date Sanjeev Webster DO [address] [place] [address] PCP - General FAMILY PRACTICE 09/25/20 Dianne Johnson, RN [address] [place] [address] Floor Person (Ambulatory) REGISTERED NURSE 08/14/20 documented as of this encounter
--- OUTSIDE RECORDS SUMMARY | 2024-03-15 00:56 | XMS_ITS | Encounter Summary ---
Author Organization [facility] Address [facility] [place] [address] [place] [address] Care Team Providers Care Orthotist/Prosthetist Name Role Phone Dianne Johnson RN Unavailable [phone] Sanjeev Webster DO Primary Care Provider + [...] Patient Health Questionnaire-2 Score 6 12/11/2022 [facility] Questionnaire Answer [...] st Contact Info) Description 04/14/2024 2:00 PM INDUSTRIAL MAINTENANCE INSTRUCTOR Office Visit [facility] Multispecialty Care - [facility] [address] [facility], [address] [place] [address] Julio Pulido MD [address] [place] [address] documented as of this encounter Goals Goal Patient Goal Type Associated Problems Recent Progress Patient-Stated? Author Health - patient able to perform ADLs independently General On track(2023 9:49 AM CDT) Dianne Corona RN Note: 12/17/23: Patient stated she is independent with ASL's. Establish Plan for Symptom Monitoring-CHF General On track(2023 11:36 AM INDUSTRIAL MAINTENANCE INSTRUCTOR) Dianne Corona RN Note: Patient will [...] Symptom Monitoring-COPD General On track(2023 11:36 AM INDUSTRIAL MAINTENANCE INSTRUCTOR) Dianne Corona RN Note: Patient will [...] Symptom Monitoring-DM General On track(2023 4:33 PM INDUSTRIAL MAINTENANCE INSTRUCTOR) Dianne Corona, RN Note: Patient will manage [...] Symptom Monitoring-HTN General On track(2023 4:33 PM INDUSTRIAL MAINTENANCE INSTRUCTOR) Dianne Corona, RN Note: Patient will [...] documented as of this encounter Care Teams Orthotist/Prosthetist Relationship Specialty Start Date End Date Sanjeev Webster DO [address] [place] [address] PCP - General FAMILY PRACTICE 09/25/20 Dianne Johnson, RN [address] [place] [address] Embedded Linux Engineer (Ambulatory) REGISTERED NURSE 08/14/20 documented as of this encounter
--- OUTSIDE RECORDS SUMMARY | 2024-03-15 00:56 | XMS_ITS | Encounter Summary ---
Author Organization [facility] Address [facility] [place] [address] [place] [address] Care Team Providers Care Bridal Service Sales And Management Name Role Phone Dianne Johnson RN Unavailable [phone] Sanjeev Montez DO Primary Care Provider + Reason for Visit * Reason Comments Aneurysm 1 month follow up. Encounter Details Date Type Department Care Team (Late st Contact Info) Description 02/16/2023 10:40 AM PESTICIDE CONTROL INSPECTOR Office Visit [facility] Family & Internal Medicine [id number] [place] [address] Sanjeev Montez DO [facility] [place] [address] Aneurysm (1 month follow up. ) Social History Tobacco [...] often do you attend chur ch or gnosticist services? More than 4 times [...] Recorded Patient Health Questionnaire-2 Score 6 [facility]2022 [facility] - Occupational Stress Questionnaire Answer Date [...] Sign Reading Time Taken Comments Blood Pressure 120/86 02/16/2023 10:56 AM PESTICIDE CONTROL INSPECTOR Pulse 81 02/16/2023 10:56 AM PESTICIDE CONTROL INSPECTOR Temperature 36.1 ??C (97 ??F) 02/16/2023 10:56 AM PESTICIDE CONTROL INSPECTOR Respiratory Rate 16 02/16/2023 10:56 AM PESTICIDE CONTROL INSPECTOR Oxygen Saturation 96% 02/16/2023 10:56 AM PESTICIDE CONTROL INSPECTOR Inhaled Oxygen Concentration - - Weight 84.2 kg (185 lb 9.6 oz) 02/16/2023 10:56 AM PESTICIDE CONTROL INSPECTOR Height 165.1 cm (5' 5 ) 02/16/2023 10:56 AM PESTICIDE CONTROL INSPECTOR Body Mass Index 30.89 02/16/2023 10:56 AM PESTICIDE CONTROL INSPECTOR documented in this encounter Functional Status * [...] in this encounter Progress Notes * Sanjeev Montez, - 02/16/2023 10:40 AM CST Images from the original note were not included. GENERAL OFFICE VISIT Encounter Date: 02/16/2023 Chief Complaint: 77-year-old female presents for Aneurysm (1 month follow up. ) HPI: Pt is in need of PT/INR. Office Visit on 02/16/2023 Component Date Value Ref Range Status INR WHOLE BLOOD 02/16/2023 3.30 Final Patient has Type 2 Diabetes. Patient has had diabetes for multiple years. Medications include Trulicity, which pt hasn't been able to take it because she couldn't get it filled. BS logs range: doesn't check. Patient's weight has gone down one pound. Pt has neuropathy and PAD, both of which are stable. Pt is on gabapentin for neuropathy. Pt has CHF. She is on furosemide. She is following with cardiology at this time, [facility] Gomez[facility] Patient presents for follow-up on HLD. Patient has had HLD for multiple years. Current medications include none; pt hasn't tolerated atorvastatin or rosuvastatin. Patient does not need labs drawn today. Pt was having issues with her right hip, although this did improve recently. She is still needing additional imaging of this. Pt was recently found to have possible fracture sternotomy wires. She needs a repeat chest XR to further evaluate this. Review of Systems Constitutional: Negative for fever. Respiratory: Negative for shortness of breath. Cardiovascular: Negative for chest pain. Gastrointestinal: Negative for abdominal pain. Musculoskeletal: See HPI Neurological: Saw neurology/rheumatology recently, will await results Patient Active Problem List Diagnosis Abnormal stress test Chronic anticoagulation Coronary artery disease involving [place] coronary artery of clark[place] heart without angina pectoris Dyspnea on exertion H/O mechanical aortic valve replacement Hypertensive heart disease with congestive heart failure ([facility]) ([facility]) LBBB (left bundle branch block) Myopathy VAZQUEZ (obstructive sleep apnea) Paroxysmal atrial flutter ([facility]) ([facility]) Benign hypertension with CKD (chronic kidney disease) stage III ([facility]) Memory deficits Hearing deficit, bilateral History of cataract extraction, unspecified laterality Vitamin D deficiency Hypercalcemia Chronic frontal sinusitis Constipation, unspecified constipation type Chronic bilateral low back pain without sciatica Iron deficiency anemia, unspecified iron deficiency anemia type Disorder of skin of trunk Anemia Body mass index (BMI) 31.0-31.9, adult 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[facility]) Benign hypertension with stage 3b chronic kidney disease ([facility]) Cobalamin deficiency Compression fracture of thoracic vertebra ([facility]) ([facility]) Depression Diabetic polyneuropathy ([facility]) ([facility]) Disorder of rotator cuff Diverticular disease Dysphagia Elevated troponin Gastroesophageal reflux disease without esophagitis Hyperlipidemia, unspecified hyperlipidemia type Vascular dementia ([facility]) Unknown and unspecified causes of morbidity Syncope, unspecified syncope type Wrist joint pain Respiratory illness Requires lifelong warfarin therapy Secondary hyperparathyroidism ([facility]) ([facility]) Presence of prosthetic heart valve Plantar fascial fibromatosis Peripheral neuropathy Parathyroid adenoma Polymyalgia rheumatica ([facility]) ([facility]) Osteoporosis Numbness Muscle cramps Closed stable burst fracture of sixth thoracic vertebra, initial encounter ([facility]) ([facility]) Chest pain Contusion of scalp Knee pain Localized, primary osteoarthritis Osteoarthritis of knee Traumatic closed displaced fracture of distal end of radius Shoulder joint pain Hyperlipidemia associated with type 2 diabetes mellitus ([facility]) ([facility]) PVD (peripheral vascular disease) ([facility]) Hematoma Anxiety Diastolic heart failure ([facility]) ([facility]) Internal hemorrhoids Leukoencephalopathy Major depression single episode, in partial remission ([facility]) Metacarpal bone fracture Mitral valve disorder Peripheral arterial occlusive disease ([facility]) Primary osteoarthritis involving multiple joints Vision loss COPD (chronic obstructive pulmonary disease) ([facility]) ([facility]) Diarrhea Drug-induced constipation H/O mechanical aortic valve replacement Age-related osteoporosis with current pathological fracture Care Management Physical deconditioning Chronic heart failure with preserved ejection fraction (HFpEF) ([facility]) ([facility]) Paroxysmal atrial fibrillation ([facility]) ([facility]) Hypertension associated with type 2 diabetes mellitus ([facility]) ([facility]) Encounter for prophylactic measures, unspecified Graves' disease Cirrhosis of liver without ascites, unspecified hepatic cirrhosis type ([facility]) ([facility]) Stage 3b chronic kidney disease ([facility]) OLIVE (acute kidney injury) ([facility]) Heart failure with mildly reduced ejection fraction (HFmrEF) ([facility]) ([facility]) 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 Anxiety Atrial fibrillation with rapid ventricular response ([facility]) ([facility]) 08/22/2020 Atrial flutter ([facility]) ([facility]) Cataract Chronic anticoagulation due to mechanical heart valve Chronic pain Diabetes mellitus ([facility]) ([facility]) H/O mechanical aortic valve replacement [...] Vaping Use Vaping Use: Never used Substance and Sexual Activity Alcohol use: Not [...] min Stress: Stress Concern Present (08/26/2022) [place] [facility] [employer] [facility] - Occupational Stress Questionnaire Feeling of Stress : To some extent Social Connections: Moderately Isolated (08/26/2022) Social Connection and Isolation Panel [NHANES] Frequency of Communication with Friends and Family: Three times a week Frequency of Social Gatherings with Friends and Family: Three times a week Attends [employer] Services: More than 4 times per year [...] (Generic) 06/05/2016, 09/05/2020 Tetanus/Diptheria 07/22/2014 Zoster (Zostavax) 06187 Unt/0.65Ml 12/25/2015 Current Outpatient Medications Medication Sig [...] the skin once a week. Indications: Diabetes furosemide (LASIX) 20 MG tablet Take 1 tablet (20 mg total) by mouth daily. furosemide (LASIX) 80 MG tablet Take 0.5 tablets (40 mg total) by mouth daily. (Patient taking differently: Alternate 20 mg and 40 mg of furosemide on alternating days.) gabapentin (NEURONTIN) 300 MG capsule Take 1 capsule (300 mg total) by mouth 3 (three) times daily. Glucose Blood (BLOOD GLUCOSE TEST STRIPS) Strip [...] as needed. Use as instructed methIMAzole (TAPAZOLE) 10 MG tablet Take 1 tablet (10 mg total) by mouth daily. metoprolol tartrate (LOPRESSOR) 25 MG tablet Take 0.5 tablets (12.5 mg total) by mouth 2 (two) times daily. omeprazole (PRILOSEC) 20 MG capsule Take 1 capsule by mouth once daily potassium chloride CR (K-TAB) 10 MEQ Tab CR tablet Take 1 tablet by mouth once daily venlafaxine XR (EFFEXOR-XR) 150 MG 24 hr capsule Take 1 capsule by mouth once daily warfarin (COUMADIN) 1 MG tablet Take 2 tablets (2 mg total) by mouth see administration instructions. Thursday , Thursday and Thursday with 6mg to total 8 mg and 1 tablet daily Thursday through with 6mg tablet for a total of 7mg warfarin (COUMADIN) 6 MG tablet Take 1 tablet by mouth once daily No current facility-administered medications on file prior to visit. Review of patient's allergies indicates: Allergen Reactions Atorvastatin Leg Pain Leg pain/cramps. Resolved after stopping. Tape Contact Dermatitis Bacitracin Other (see comment) Benzalkonium Other (see comment) Gramicidin Other (see comment) Hydrocortisone Other (see comment) Neomycin Other (see comment) Polymyxin B Other (see comment) Rosuvastatin Leg Pain Cramping in legs Objective: Filed Vitals: 02/16/23 1056 BP: 120/86 Pulse: 81 Resp: 16 Temp: 97 ??F (36.1 ??C) TempSrc: Skin SpO2: 96% Weight: 84.2 kg (185 lb 9.6 oz) Height: 1.651 m (5' [...] Neck supple. Lymphadenopathy: Cervical: No cervical adenopathy. Neurological: Mental Status: She is alert. Mental status is at baseline. Psychiatric: Mood and Affect: Mood normal. Assessment & Plan: Radha was seen today for aneurysm. 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) - simvastatin (ZOCOR) 10 MG tablet; Take 1 tablet (10 mg total) by mouth nightly at bedtime. Drug-induced myopathy Heart failure with mildly reduced ejection fraction (HFmrEF) ([facility]) ([facility]/HCC) Acute right hip pain - XR PELVIS+RT HIP 2V; Future Type 2 diabetes mellitus with stage 3b chronic kidney disease, without long-term current use of insulin ([facility]) ([facility]) Discussion/Summary: Continue Trulicity whenever able. Will start simvastatin; pt had side effects with atorvastatin androsuvastatin. Recheck PT/INR in 1 month. Will order XR's as per above and dictate further treatmentfrom those results. Continue current meds for HFmrEF; continue f/u with cardiology. Continue f/u with all specialists. Will have pt f/u in 1 month or sooner if needed. Pt v/u. I personally spent a total of 43 minutes on the day of the encounter. This includes jsid-jb-rilb and udz-jiha-hx-face time I provided on the day of the encounter & excludes time spent performing separately reportable services. Sanjeev Montez DO ICIDE CONTROL INSPECTOR documented in this encounter Plan of Treatment Upcoming Encounters Date Type Department Care Team (Late st Contact Info) Description 04/14/2024 2:00 PM PESTICIDE CONTROL INSPECTOR Office Visit [facility] Multispecialty Care - [facility] [address] [facility] [address], [address] [place] [address] Julio Pulido MD [address] [place] [address] documented as of this encounter Goals Goal Patient Goal Type Associated Problems Recent Progress Patient-Stated? Author Health - patient able to perform ADLs independently General On track(2023 9:49 AM CDT) Dianne Corona, RN Note: 12/17/23: Patient stated she is independent with ASL's. Establish Plan for Symptom Monitoring-CHF General On track(2023 11:36 AM PESTICIDE CONTROL INSPECTOR) Dianne Corona, RN Note: Patient will recognize [...] Symptom Monitoring-COPD General On track(2023 11:36 AM PESTICIDE CONTROL INSPECTOR) Dianne Corona, RN Note: Patient will recognize [...] Symptom Monitoring-DM General On track(2023 4:33 PM PESTICIDE CONTROL INSPECTOR) Dianne Corona RN Note: Patient will [...] Symptom Monitoring-HTN General On track(2023 4:33 PM PESTICIDE CONTROL INSPECTOR) Dianne Corona RN Note: Patient will [...] Associated Diagnosis Comments PROTHROMBIN TIME, FINGERSTICK Routine 02/16/2023 H/O mechanical aortic valve replacement [facility] (current) use of anticoagulants documented in this encounter Results * XR PELVIS+RT HIP 2V (02/16/2023 11:47 AM PESTICIDE CONTROL INSPECTOR) Anatomical Region Laterality Modality Hip, Pelvis Radiographic Jennifer ging 02/16/2023 2:48 PM PESTICIDE CONTROL INSPECTOR Impressions 02/16/2023 2:50 PM PESTICIDE CONTROL INSPECTOR IMPRESSION: 1. No acute abnormality identified. 2. Minimal right hip arthritic change. Ordered By: SANJEEV MONTEZ Interpreted By: Rao Hoyt MD, 02/16/2023 2:48 PM Narrative 02/16/2023 2:50 PM PESTICIDE CONTROL INSPECTOR Examination: XR PELVIS+RT HIP 2V Exam time: 02/16/2023 11:35 AM Clinical history: No known injury. Right hip pain. Comparison: No prior exam Technique: AP pelvis and each hip joint. Small qpyzg-ca-apey AP and lateral images right hip joint. Findings: Sacroiliac joints are normal in width. Mild osteitis pubis changes. No evidence of fracture or acute osseous abnormality involving the pelvis. Single AP view left hip joint appears unremarkable. Right hip joint space appears within normal limits. Minimal hypertrophic change along the lateral acetabular margin. No evidence of fracture or focal bone abnormality right acetabulum or right proximal femur. Bilateral pelvic calcifications most consistent with arterial and venous calcifications. No evidence of abnormal soft tissue densities. Procedure Note Rao Hoyt MD - 02/16/2023 Examination: XR PELVIS+RT HIP 2V Exam time: 02/16/2023 11:35 AM Clinical history: No known injury. Right hip pain. Comparison: No prior exam Technique: AP pelvis and each hip joint. Small [id number]-do-yzjz AP andlateral images right hip joint. Findings: Sacroiliac joints are normal in width. Mild osteitis pubischanges. No evidence of fracture or acute osseous abnormality involvingthe pelvis. Single AP view left hip joint appears unremarkable. Right hip joint space appears within normal limits. Minimal hypertrophicchange along the lateral acetabular margin. No evidence of fracture orfocal bone abnormality right acetabulum or right proximal femur. Bilateral pelvic calcifications most consistent with arterial and venouscalcifications. No evidence of abnormal soft tissue densities. IMPRESSION: 1. No acute abnormality identified. 2. Minimal right hip arthritic change. Ordered By: SANJEEV MONTEZ Interpreted By: Rao Hoyt MD, 02/16/2023 2:48 PM Sanjeev Montez DO GENERAL IMAGING Final Re sult * XR CHEST PA+LAT (02/16/2023 11:47 AM PESTICIDE CONTROL INSPECTOR) Anatomical Region Laterality Modality Chest Radiographic Jennifer ging 02/16/2023 2:41 PM PESTICIDE CONTROL INSPECTOR Impressions 02/16/2023 2:43 PM PESTICIDE CONTROL INSPECTOR IMPRESSION: 1. Mild enlargement cardiac silhouette. 2. Median sternotomy wires with multiple breaks visualized within the wires. 3. No definitive radiographic evidence of active chest disease. Ordered By: SANJEEV MONTEZ Interpreted By: Rao Hoyt MD, 02/16/2023 2:41 PM Narrative 02/16/2023 2:43 PM PESTICIDE CONTROL INSPECTOR Examination: XR CHEST PA+LAT Exam time: 02/16/2023 11:35 AM Clinical history: Possible fractured sternotomy wires Comparison: 08/26/2022 AP upright view Technique: Upright PA and lateral views Findings: Median sternotomy changes are present. There are multiple sternotomy wires visualized. There are multiple breaks visualized within the sternotomy wires. Mild enlargement cardiac silhouette. Aortic valve replacement change visualized. Pulmonary vasculature are within normal limits. No evidence of focal atelectasis or consolidation. No evidence of pleural effusion. Procedure Note Rao Hoyt MD - 02/16/2023 Examination: XR CHEST PA+LAT Exam time: 02/16/2023 11:35 AM Clinical history: Possible fractured sternotomy wires Comparison: 08/26/2022 AP upright view Technique: Upright PA and lateral views Findings: Median sternotomy changes are present. There are multiplesternotomy wires visualized. There are multiple breaks visualized withinthe sternotomy wires. Mild enlargement cardiac silhouette. Aortic valve replacement changevisualized. Pulmonary vasculature are within normal limits. No evidence offocal atelectasis or consolidation. No evidence of pleural effusion. IMPRESSION: 1. Mild enlargement cardiac silhouette. 2. Median sternotomy wires with multiple breaks visualized within thewires. 3. No definitive radiographic evidence of active chest disease. 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) Drug-induced myopathy Toxic myopathy Heart failure with mildly reduced ejection fraction (HFmrEF) ([facility]) Acute right hip pain Pain in joint, pelvic region and thigh Type 2 diabetes mellitus with stage 3b chronic kidney disease, without long-term current use of insulin ([facility]) documented in this encounter Additional Health Concerns Assessment Noted Time PHQ-9 Depression Total Score: 13 023 3:56 PM CDT documented as of this encounter Care Teams Bridal Service Sales And Management Relationship Specialty Start Date End Date Sanjeev Montez DO [address] [place] [id number] PCP - General FAMILY PRACTICE 09/25/20 Dianne Johnson, RN [address] [place] [address] [employer] Cable Jointer (Ambulatory) REGISTERED NURSE 08/14/20 documented as of this encounter
--- OUTSIDE RECORDS SUMMARY | 2024-03-15 00:56 | XMS_ITS | Encounter Summary ---
Author Organization [facility] Address [facility] [place] [address] [place] [address] Care Team Providers Care Mining Captain Name Role Phone Dianne Johnson RN Unavailable [phone] Sanjeev Webster DO Primary Care Provider + Reason for Referral * Imaging (Routine) - Closed Specialty Diagnoses / Procedures Referred By Contac t Referred To Contact RADIOLOGY Diagnoses Post-menopausal Osteopenia Osteoporosis Procedures BONE DENSITY/DEXA Devan Pressley MD [address] [facility] [place] [address] Phone: tel: fax: Referral ID Status Reason Start Date Expiration Date Visits Re quested Visits Authorized [id number] Closed 02/09/2023 02/10/2024 1 1 [facility] Reason for Visit * Imaging (Routine) - Closed Specialty Diagnoses / Procedures Referred By Contac t Referred To Contact RADIOLOGY Diagnoses Post-menopausal Osteopenia Osteoporosis Procedures BONE DENSITY/DEXA Devan Pressley MD [address] [place] [address] Phone: tel: fax: Referral ID Status Reason Start Date Expiration Date Visits Re quested Visits Authorized [id number] Closed 02/09/2023 02/10/2024 1 1 Encounter Details Date Type Department Care Team (Latest Contact Info) Description 02/24/2023 9:22 AM NET SORTER - 02/24/2023 11:59 PM NET SORTER Hospital Encounter [facility] [address] [place] [address] Devan Pressley MD [address] [place] [address] Discharge Disposition: Home or Self [...] 12/11/2022 [facility] - Occupational Stress Questionnaire Answer Date [...] hronic obstructive pulmonary disease, unspecified COPD type ([facility]/HCC [facility]) INHALE 2 PUFFS BY MOUTH EVERY 6 HOURS NEEDED FOR WHEEZING 18 g 5 3 Blood Glucose Monitoring Suppl (ONE TOUCH ULTRA 2) w/Device KitIndications:Type 2 diabetes mellitus with stage 3b chronic kidney disease, without long-term current use of insulin ([facility] HHS/HCC) 1 Device by Does not apply route daily. 1 kit 3 Cholecalciferol (VITAMIN D3) 25 MCG (1000 UT) Cap Take 1 capsule (1,000 Units total) by mouth daily. Glucose Blood (BLOOD GLUCOSE TEST STRIPS) StripIndications:Typ e 2 diabetes mellitus with stage 3b chronic kidney disease, without long-term current use of insulin ([facility] HHS/HCC) 1 Device by Does not apply route daily. 100 strip 3 3 Lancets (ONETOUCH ULTRASOFT) lancetsIndications:T ype 2 diabetes mellitus with stage 3b chronic kidney disease, without long-term current use of insulin ([facility]) 1 each by Other route as needed. Use as instructed 100 each 3 3 simvastatin (ZOCOR) 10 MG tabletIndications:Hy perlipidemia associated with type 2 diabetes mellitus ([facility] HHS/HCC) Take 1 tablet (10 mg total) by mouth nightly at bedtime. 90 tablet 3 3 ALPRAZolam (XANAX) 0.5 MG tabletIndications:An xiety TAKE 1/2 (ONE-HALF) TABLET BY MOUTH NIGHTLY NEEDED FOR SLEEP 15 tablet 3 02/26/20 23 ALPRAZolam (XANAX) 0.5 MG tabletIndications:An xiety TAKE 1/2 (ONE-HALF) TABLET BY MOUTH NIGHTLY NEEDED FOR SLEEP 15 tablet 3 03/31/19 24 dulaglutide (TRULICITY) 1.5 MG/0.5ML injectionIndications :Diabetes Mellitus Inject 1.5 mg into the skin once a week. Indications: Diabetes 6 mL 3 05/11/19 24 furosemide (LASIX) 20 MG tabletIndications:Hy pertensive heart disease with congestive heart failure ([facility] HHS/HCC) Take 1 tablet (20 mg total) by mouth daily. 30 tablet 3 3 05/22/19 24 furosemide (LASIX) 80 MG tabletIndications:Ch ronic heart failure with preserved ejection fraction (HFpEF) ([facility] HHS/HCC) Take 0.5 tablets (40 mg total) [...] for Pain. Indications: Chronic Pain 60 tablet 3 03/12/19 24 iron polysaccharides (NIFEREX) 150 MG capsuleIndications:I [...] with preserved ejection fraction (HFpEF) (CMS/HCC HHS/HCC) Take 0.5 tablets (12.5 mg total) by mouth 2 (two) times daily. 90 tablet 3 3 08/19/19 24 omeprazole (PRILOSEC) 20 MG capsuleIndications:G ERD (gastroesophageal reflux disease) Take 1 capsule by mouth once daily 90 capsule 1 3 03/30/19 24 potassium chloride CR (K-TAB) 10 MEQ Tab CR tabletIndications:Hy pokalemia Take 1 tablet by mouth once daily 90 tablet 3 02/26/20 23 potassium chloride CR (K-TAB) 10 MEQ Tab CR tabletIndications:Hy pokalemia Take 1 tablet by mouth once daily 90 tablet 3 05/22/19 24 venlafaxine XR (EFFEXOR-XR) 150 MG 24 [...] for a total of 7mg 60 tablet 3 03/17/19 24 warfarin (COUMADIN) 6 MG tabletIndications:Ch ronic anticoagulation Take 1 tablet by mouth once daily 30 tablet 3 04/28/19 24 documented as of this encounter Plan of Treatment Upcoming Encounters Date Type Department Care Team (Late st Contact Info) Description 04/14/2024 2:00 PM NET SORTER Office Visit [facility] 3 [facility], [address] [place] [address] Julio Pulido MD 3 [place] [address] documented as of this encounter Goals Goal Patient Goal Type Associated Problems Recent Progress Patient-Stated? Author Health - patient able to perform ADLs independently General On track(2023 9:49 AM CDT) Dianne Corona, RN Note: 12/17/23: Patient stated she is independent with ASL's. Establish Plan for Symptom Monitoring-CHF General On track(2023 11:36 AM NET SORTER) Dianne Corona, RN Note: Patient will recognize [...] Symptom Monitoring-COPD General On track(2023 11:36 AM NET SORTER) No Dianne Johnson RN Note: Patient will [...] Symptom Monitoring-DM General On track(2023 4:33 PM NET SORTER) Dianne Corona RN Note: Patient will manage [...] Symptom Monitoring-HTN General On track(2023 4:33 PM NET SORTER) Dianne Corona RN Note: Patient will monitor B/P several times per week , record readings and report to physician or CC if B/P consistently >130/80 Take your medications as prescribed. Follow up with your provider as scheduled. Take your blood pressure at least several times a week if able. documented as of this encounter Procedures Procedure Name Priority Date/Time Associated Diagnosis Comments BONE DENSITY/DEXA Routine 02/24/2023 10: 10 AM NET SORTER Post-menopausal Osteopenia Osteoporosis documented in this encounter Results * BONE DENSITY/DEXA (02/24/2023 10:10 AM NET SORTER) Anatomical Region Laterality Modality Bone Mammography 02/24/2023 11:5 2 AM NET SORTER Impressions 02/24/2023 11:53 AM NET SORTER IMPRESSION: WHO Classification: osteoporosis. ??1.6% interval decrease in bone mineral density of the hips from 2021 comparison FRAX Score: 41% chance of hip fracture and 63% chance of major osteoporotic fracture over the next 10 years Ordered By: DEVAN PRESSLEY Interpreted By: Quoc Wilkinson MD, 02/24/2023 11:52 AM Narrative 02/24/2023 11:53 AM NET SORTER Examination: Bone Density Axial Exam Date/Time: 02/24/2023 9:47 AM Reason For Exam: ??Postmenopausal osteoporosis ?? Comparison: 07/15/2021 DEXA scan Findings: ??DEXA bone densitometry ?The bone mineral density (BMD) was determined by dual-energy x-ray absorptiometry, the results are as follows: ?AP Lumbar Spine L1 through L4 ?BMD Patient (GM/SQCM): 0.894 ?T-Score (Standard deviations from young adult peak bone density): -1.4 ?Right femoral neck: ?BMD Patient (GM/SQCM): 0.339 ?T-Score (Standard deviations from young adult peak bone density): -4.6 ? Total right femur: ?BMD Patient (GM/SQCM): 0.577 ? T-Score (Standard deviations from young adult peak bone density): -3.0 Procedure Note Quoc Wilkinson MD - 02/24/2023 Examination: Bone Density Axial Exam Date/Time: 02/24/2023 9:47 AM Reason For Exam: Postmenopausal osteoporosis Comparison: 07/15/2021 DEXA scan Findings: DEXA bone densitometry The bone mineral density (BMD) was determined bydual-energy x-ray absorptiometry, the results are as follows: AP Lumbar Spine L1 through L4 BMD Patient (GM/SQCM): 0.894 T-Score (Standard deviations from young adult peak bonedensity): -1.4 Right femoral neck: BMD Patient (GM/SQCM): 0.339 T-Score (Standard deviations from young adult peak bonedensity): -4.6 Total right femur: BMD Patient (GM/SQCM): 0.577 T-Score (Standard deviations from young adult peak bonedensity): -3.0 IMPRESSION: WHO Classification: osteoporosis. 1.6% interval decrease in bone mineraldensity of the hips from 2021 comparison FRAX Score: 41% chance of hip fracture and 63% chance of majorosteoporotic fracture over the next 10 years Ordered By: DEVAN PRESSLEY Interpreted By: Quoc Wilkinson MD, 02/24/2023 11:52 AM Devan Pressley MD DEXA Final Result documented in this encounter Visit Diagnoses Diagnosis Post-menopausal Asymptomatic postmenopausal status (age-related) (natural) Osteopenia Disorder of bone and cartilage, unspecified Osteoporosis Osteoporosis, unspecified documented in this encounter Additional Health Concerns Assessment Noted Time PHQ-9 Depression Total Score: 13 023 3:56 PM CDT documented as of this encounter Care Teams Mining Captain Relationship Specialty Start Date End Date Sanjeev Webster DO [address] [place] [address] PCP - General FAMILY PRACTICE 09/25/20 Dianne Johnson, RN [address] [place] [address] Stage Electrician (Ambulatory) REGISTERED NURSE 08/14/20 documented as of this encounter
--- OUTSIDE RECORDS SUMMARY | 2024-03-15 00:56 | XMS_ITS | Encounter Summary ---
Author Organization [facility] Address [facility] [place] [address] [place] [address] Care Team Providers Care Crate Opener Name Role Phone Casey Johnson RN Unavailable [phone] Sanjeev Webster DO Primary Care Provider + Reason for Visit * Reason Onset Date Comments Care Management 03/16/2023 Encounter Details Date Type Department Care Team (Late st Contact Info) Description 03/16/2023 Patient Outreach [facility] Family & Internal Medicine [address] [address] Casey Johnson, RN [address] [place] [address] Care Management Social History Tobacco [...] How often do you attend chur or orthodox services? More than 4 times per year 08/26/2022 Do you belong to any clubs o r organizations such as muslim groups, unions, fraternal or athletic groups, or [...] Progress Notes * Casey Johnson RN - 03/16/2023 1:18 PM CST Chronic Care Management: Patient concerns or urgent matters that need addressed: Patient stated tried calling office x 4 since 9:00 am regarding appointment today and stated call dropped. She is needing to reschedule appointment. Message sent to nursing team. Patient is due for INR. She is currently on doxycycline and this can enhance the anticoagulant effect of warfarin. No issues with bleeding at this time. Patient Status: Contacted patient to inform she missed appointment with today. Patient attempted to contact PCP office multiple times and call dropped. Patient continues to take benzonatate, doxycycline and prednisone. She has green nasal drainage and chest congestion. Stated she is having a hard time coughing up mucus. Instructed patient to stay drink plenty of fluids to stay hydrated and thin mucus, use humidifier, uses albuterol as directed, take doxycycline, prednisone and benzonatate as directed and use incentive spirometer. Patient is drinking hot tea which helps and white soda. She plans on making soup for dinner. BP on 03/11/23: 132/88. Educated patient on canned soup high in sodium. Read food labels and stay on low sodium diet of no more than 2300 mg of sodium daily. Patient verbalizes understanding. Gave patient CC direct phone number. She misplaced number. Encouraged to call at the onset of any changes. Patient verbalizes understanding. Plan of Care: nursing program coordinator will continue to follow up by [...] Future Appointments Date Time Provider Department Center 04/07/2023 2:[address] 1 [facility] 04/09/2023 1:40 PM Julio Pulido MD [facility] 04/10/2023 1:00 PM ALEX ECHO 1 [facility] 04/14/2023 3:00 PM ALEX MRI [facility] 04/14/2023 4:00 PM ALEX MRI [facility] 09/04/2023 1:00 PM Sania Gomez MD [facility] Quality care gaps: Health Maintenance Topic [...] test Chronic anticoagulation Coronary artery disease involving [place] coronary artery of [place] heart without angina pectoris Dyspnea on exertion H/O mechanical aortic valve replacement Hypertensive heart disease with congestive heart failure ([facility]) ([facility]) LBBB (left bundle branch block) Myopathy VAZQUEZ (obstructive sleep apnea) Paroxysmal atrial flutter ([facility]) ([facility]) Benign hypertension with CKD (chronic kidney disease) stage III ([facility]) Memory deficits Hearing deficit, bilateral History of cataract extraction, unspecified laterality Vitamin D deficiency Hypercalcemia Chronic frontal sinusitis Constipation, unspecified constipation type Chronic bilateral low back pain without sciatica Iron deficiency anemia, unspecified iron deficiency anemia type Disorder of skin of trunk Anemia Body mass index (BMI) 31.0-31.9, adult 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[facility]) Benign hypertension with stage 3b chronic kidney disease ([facility]) Cobalamin deficiency Compression fracture of thoracic vertebra ([facility]) ([facility]) Depression Diabetic polyneuropathy ([facility]) ([facility]) Disorder of rotator cuff Diverticular disease Dysphagia Elevated troponin Gastroesophageal reflux disease without esophagitis Hyperlipidemia, unspecified hyperlipidemia type Vascular dementia ([facility]) Unknown and unspecified causes of morbidity Syncope, unspecified syncope type Wrist joint pain Respiratory illness Requires lifelong warfarin therapy Secondary hyperparathyroidism ([facility]) ([facility]) Presence of prosthetic heart valve Plantar fascial fibromatosis Peripheral neuropathy Parathyroid adenoma Polymyalgia rheumatica ([facility]) ([facility]) Osteoporosis Numbness Muscle cramps Closed stable burst fracture of sixth thoracic vertebra, initial encounter ([facility]) ([facility]) Chest pain Contusion of scalp Knee pain Localized, primary osteoarthritis Osteoarthritis of knee Traumatic closed displaced fracture of distal end of radius Shoulder joint pain Hyperlipidemia associated with type 2 diabetes mellitus ([facility]) ([facility]) PVD (peripheral vascular disease) ([facility]) Hematoma Anxiety Diastolic heart failure ([facility]) ([facility]) Internal hemorrhoids Leukoencephalopathy Major depression single episode, in partial remission ([facility]) Metacarpal bone fracture Mitral valve disorder Peripheral arterial occlusive disease ([facility]) Primary osteoarthritis involving multiple joints Vision loss COPD (chronic obstructive pulmonary disease) ([facility]) ([facility]) Diarrhea Drug-induced constipation H/O mechanical aortic valve replacement Age-related osteoporosis with current pathological fracture Care Management Physical deconditioning Chronic heart failure with preserved ejection fraction (HFpEF) ([facility]) ([facility]) Paroxysmal atrial fibrillation ([facility]) ([facility]) Hypertension associated with type 2 diabetes mellitus ([facility]) ([facility]) Encounter for prophylactic measures, unspecified Graves' disease Cirrhosis of liver without ascites, unspecified hepatic cirrhosis type ([facility]) ([facility]) Stage 3b chronic kidney disease ([facility]) OLIVE (acute kidney injury) ([facility]) Heart failure with mildly reduced ejection fraction (HFmrEF) ([facility]) ([facility]) Medications: Current Outpatient Medications Medication Sig [...] MOUTH NIGHTLY NEEDED FOR SLEEP 15tablet 0 benzonatate (TESSALON PERLES) 100 MG capsule Take 1 capsule (100 mg total) by mouth 3 (three) timesdaily as needed for Cough. 20 capsule 0 Blood Glucose Monitoring Suppl (ONE TOUCH ULTRA 2) w/Device Kit 1 Device by Does not apply route daily. 1 kit 0 Cholecalciferol (VITAMIN D3) 25 MCG (1000 UT) Cap Take 1,000 Units by mouth daily. doxycycline hyclate (VIBRAMYCIN) 100 MG capsule Take 1 capsule (100 mg total) by mouth 2 (two) times daily for 10 days. 20 capsule 0 dulaglutide (TRULICITY) 1.5 MG/0.5ML injection [...] with Patient Time spent with patient (minutes): 21 Time spent performing chart review (minutes): 6 Total time (minutes): 27 CASEY JOHNSON RN I reviewed the patient's status and education provided by CASEY JOHNSON RN. I agree with the findings and recommendations made. Cosigned by Sanjeev Webster DO at 03/17/2023 12:27 PM CARPENTER ASSISTANT INSTALLER ENTER ASSISTANT INSTALLER ENTER ASSISTANT INSTALLER documented in this encounter Plan of Treatment Upcoming Encounters Date Type Department Care Team (Late st Contact Info) Description 04/14/2024 2:00 PM CARPENTER ASSISTANT INSTALLER Office Visit [facility] - [facility] 3 [facility], [address] [place] [address] Julio Pulido MD [address] [place] [address] documented as of this encounter Goals Goal Patient Goal Type Associated Problems Recent Progress Patient-Stated? Author Health - patient able to perform ADLs independently General On track(2023 9:49 AM CDT) Casey Corona RN Note: 12/17/23: Patient stated she is independent with ASL's. Establish Plan for Symptom Monitoring-CHF General On track(2023 11:36 AM CARPENTER ASSISTANT INSTALLER) Casey Corona RN Note: Patient will recognize [...] Symptom Monitoring-COPD General On track(2023 11:36 AM CARPENTER ASSISTANT INSTALLER) Casey Corona RN Note: Patient will recognize [...] Symptom Monitoring-DM General On track(2023 4:33 PM CARPENTER ASSISTANT INSTALLER) Casey Corona RN Note: Patient will manage [...] Symptom Monitoring-HTN General On track(2023 4:33 PM CARPENTER ASSISTANT INSTALLER) Casey Corona RN Note: Patient will monitor [...] Chronic obstructive pulmonary disease, unspecified COPD type ([facility])- Primary Chronic heart failure with preserved ejection fraction (HFpEF) ([facility]) documented in this encounter Additional Health Concerns Assessment Noted Time PHQ-9 Depression Total Score: 13 023 3:56 PM CDT documented as of this encounter Care Teams Crate Opener Relationship Specialty Start Date End Date Sanjeev Webster DO [address] [place] [address] PCP - General FAMILY PRACTICE 09/25/20 Casey Johnson, RN [facility] [place] [address] Under Cutting Machine Operator (Ambulatory) REGISTERED NURSE 08/14/20 documented as of this encounter
--- OUTSIDE RECORDS SUMMARY | 2024-03-15 00:56 | XMS_ITS | Encounter Summary ---
Author Organization [facility] Address [facility] [facility] [place] [address] [place] [address] Care Team Providers Care Physiatrist Name Role Phone Dianne Johnson RN Unavailable [phone] Sanjeev Webster DO Primary Care Provider + Encounter Details Date Type Department Care Team (Latest Contact Info) Description 03/11/2023 Travel Social History Tobacco Use Types Packs/Day [...] Health Questionnaire-2 Score 6 12/11/2022 [facility] [...] st Contact Info) Description 04/14/2024 2:00 PM SEWING TRIMMER Office Visit [facility] [address] [facility], [address] [place] [address] Julio Pulido MD [address] [place] [address] documented as of this encounter Goals Goal Patient Goal Type Associated Problems Recent Progress Patient-Stated? Author Health - patient able to perform ADLs independently General On track(2023 9:49 AM CDT) Dianne Corona RN Note: 12/17/23: Patient stated she is independent with ASL's. Establish Plan for Symptom Monitoring-CHF General On track(2023 11:36 AM SEWING TRIMMER) Dianne Corona RN Note: Patient will [...] Symptom Monitoring-COPD General On track(2023 11:36 AM SEWING TRIMMER) Dianne Corona RN Note: Patient will [...] Symptom Monitoring-DM General On track(2023 4:33 PM SEWING TRIMMER) Dianne Corona RN Note: Patient will [...] Symptom Monitoring-HTN General On track(2023 4:33 PM SEWING TRIMMER) Dianne Corona, RN Note: Patient will monitor [...] documented as of this encounter Care Teams Physiatrist Relationship Specialty Start Date End Date Sanjeev Webster DO [address] [place] [id number] PCP - General FAMILY PRACTICE 09/25/20 Dianne Johnson, RN [address] [place] [address] Community Relations Assistant (Ambulatory) REGISTERED NURSE 08/14/20 documented as of this encounter
--- OUTSIDE RECORDS SUMMARY | 2024-03-15 00:56 | XMS_ITS | Encounter Summary ---
Author Organization [facility] Address [facility]6 [facility]. [place], [place] [address] [place] [address] Care Team Providers Care Gettering Operator Name Role Phone Dianne Johnson RN Unavailable [phone] Sanjeev Webster DO Primary Care Provider + Reason for Visit * Reason Onset Date Comments Question 02/16/2023 Encounter Details Date Type Department Care Team (Late st Contact Info) Description 02/16/[address] [facility] Medical Group Family & Internal Medicine [place] [id number] [place] [address] aSnjeev Webster DO [address] [place] [address] Question Social History Tobacco Use [...] Patient Health Questionnaire-2 Score 6 12/11/2022 [facility] of Occupat ional Health [...] Progress Notes * Sanjeev Webster DO - 02/16/2023 9:44 PM CST Please let pt's granddaughter who manages her medicine know that we added simvastatin at her OV on 02/16/23 and we kept her warfarin dose the same. AL PRACTICE MANAGER documented in this encounter Plan of Treatment Upcoming Encounters Date Type Department Care Team (Late st Contact Info) Description 04/14/2024 2:00 PM DENTAL PRACTICE MANAGER Office Visit [facility] Medical Group Multispecialty Care - [facility] 3 [facility], [address] [place] [phone] Julio Pulido MD 3 [place] [address] documented as of this encounter Goals Goal Patient Goal Type Associated Problems Recent Progress Patient-Stated? Author Health - patient able to perform ADLs independently General On track(2023 9:49 AM CDT) No Dianne Johnson RN Note: 12/17/23: Patient stated she is independent with ASL's. Establish Plan for Symptom Monitoring-CHF General On track(2023 11:36 AM DENTAL PRACTICE MANAGER) Dianne Corona, RN Note: Patient will [...] Symptom Monitoring-COPD General On track(2023 11:36 AM DENTAL PRACTICE MANAGER) Dianne Corona RN Note: Patient will [...] Symptom Monitoring-DM General On track(2023 4:33 PM DENTAL PRACTICE MANAGER) Dianne Corona, RN Note: Patient will [...] Symptom Monitoring-HTN General On track(2023 4:33 PM DENTAL PRACTICE MANAGER) Dianne Corona RN Note: Patient will [...] documented as of this encounter Care Teams Gettering Operator Relationship Specialty Start Date End Date Sanjeev Webster DO [address] [place] [address] PCP - General FAMILY PRACTICE 09/25/20 Dianne Johnson, RN [address] [place], [place] [address] Market Developer (Ambulatory) REGISTERED NURSE 08/14/20 documented as of this encounter
--- OUTSIDE RECORDS SUMMARY | 2024-03-15 00:56 | XMS_ITS | Encounter Summary ---
Author Organization [facility] Address Critical access hospital6 [facility]. [place], [place] [address] [place] [address] Care Team Providers Care Configuration Manager Name Role Phone Casey Johnson RN Unavailable [phone] Sanjeev Webster DO Primary Care Provider + Reason for Referral * Consultation/Treatment (Urgent) - Authorized Specialty Diagnoses / Procedures Referred By Contac t Referred To Contact NEUROSURGERY Diagnoses Brain aneurysm (HHS/HCC) Procedures OFFICE/OUTPATIENT NEW LOW MDM 30-44 MINUTES OFFICE/OUTPT VISIT,NEW,LEVL IV OFFICE/OUTPT VISIT,NEW,LEVL V OFFICE/OUTPT VISIT,EST,LEVL III OFFICE/OUTPT VISIT,EST,LEVL IV OFFICE/OUTPT VISIT,EST,LEVL V Sanjeev Webster DO [address] [place] [address] Phone: tel: fax: Julio Pulido MD [address] [place] [address] Phone: tel: fax: Referral ID Status Reason Start Date Expiration Date Visits Requested Visits Authorized [id number] Authorized Consultatio n 04/03/2023 04/03/2024 12 12 Scheduling Instructions wants patient to specifically see . approved. K LAYER Reason for Visit * Reason Onset Date Comments Follow Up Call 02/10/[address] Pulido and Alfredo Referral 02/10/2023 Encounter Details Date Type Department Care Team (Late st Contact Info) Description 02/10/2023 Telephone [facility] Medical Group Family & Internal Medicine [facility] [address] [place] [phone] Sanjeev Webster DO [address] [place] [address] Follow Up Call (Referrals to and Alfredo); Referral Social History Tobacco Use Types Packs/Day [...] often do you attend memorial healthcare or church services? More than 4 times [...] Recorded Patient Health Questionnaire-2 Score 6 12/11/2022 [facility] of Occupat ional [facility] - Occupational Stress Questionnaire Answer Date [...] Progress Notes * Casey Johnson RN - 02/11/2023 4:32 PM CSTAddended by: CASEY JOHNSON on: 02/11/2023 04:32 PM Modules accepted: Orders K LAYER * Sanjeev Webster DO - 02/11/2023 4:07 PM CST Referral to Dr. Pulido is fine. For the other issue, is pt having pain in her chest? We can discuss that at our next OV. Will need to assess in office; can take 2 of the [place]'s in the interim. Noted. K LAYER * Casey Johnson RN - 02/10/2023 3:12 PM CST Images from the original note were not included. Please address the following: Referrals: Received fax from Abby at 's office. Copy of fax sent to today. requesting patient see specifically dx: brain aneurysm. He is requesting patient see Orthopedist dx: FX sternotomy wires. According to XR shoulder LT completed on 02/03/23 at [place] it states the followin. Patient c/o right hip pain going up her spine since Thursday. Pain constant and rates pain a 9 right now. She is applying heat without any relief and stated pain medication helps somewhat. Offered sooner appointment if available. Patient request CC send message to for recommendations. Stated she can wait until 02/16/23 unless he wants to see her sooner. 3. FYI: Tiffany Guillaume, [facility] and [place] [facility] out of [facility]. [facility] may get it in mid to end of February. Patient is currently out. 4. Faxed referral information and OV note from at 3:11 PM. Please inform CC if didn't receive. Thank you. K LAYER documented in this encounter Plan of Treatment Upcoming Encounters Date Type Department Care Team (Late st Contact Info) Description 04/14/2024 2:00 PM STOCK LAYER Office Visit [facility] Medical Group Multispecialty Care - [address], [address] [place] [address] Julio Pulido MD 3 [place] [address] Scheduled Referrals Name Type Priority Associated Diagnoses Orde r Schedule Ambulatory referral to Neurosurgery (OTHER) Referral Routine Brain aneurysm (HHS/HCC) Ordered: 02/11/2023 documented as of this encounter Goals Goal Patient Goal Type Associated Problems Recent Progress Patient-Stated? Author Health - patient able to perform ADLs independently General On track(2023 9:49 AM CDT) Casey Corona, RN Note: 12/17/23: Patient stated she is independent with ASL's. Establish Plan for Symptom Monitoring-CHF General On track(2023 11:36 AM STOCK LAYER) Casey Corona, RN Note: Patient will recognize [...] Symptom Monitoring-COPD General On track(2023 11:36 AM STOCK LAYER) Casey Corona, RN Note: Patient will recognize [...] Symptom Monitoring-DM General On track(2023 4:33 PM STOCK LAYER) Casey Corona RN Note: Patient will manage [...] Symptom Monitoring-HTN General On track(2023 4:33 PM STOCK LAYER) Casey Corona RN Note: Patient will monitor B/P several times per week , record readings and report to physician or CC if B/P consistently >130/80 Take your medications as prescribed. Follow up with your provider as scheduled. Take your blood pressure at least several times a week if able. documented as of this encounter Visit Diagnoses Diagnosis Brain aneurysm (HHS/HCC)- Primary Cerebral aneurysm, nonruptured documented in this encounter Additional Health Concerns Assessment Noted Time PHQ-9 Depression Total Score: 13 023 3:56 PM CDT documented as of this encounter Care Teams Configuration Manager Relationship Specialty Start Date End Date Sanjeev Webster DO [address] [place] [address] PCP - General FAMILY PRACTICE 09/25/20 Casey Johnson RN [address] [place] [address] Insole Cementer (Ambulatory) REGISTERED NURSE 08/14/20 documented as of this encounter
--- OUTSIDE RECORDS SUMMARY | 2024-03-15 00:56 | XMS_ITS | Encounter Summary ---
Author Organization [facility] Address [facility]6 [place] [address] [place] [address] Care Team Providers Care Shoe Parts Molder Name Role Phone Dianne Johnson RN Unavailable [phone] Sanjeev Webster DO Primary Care Provider + Encounter Details Date Type Department Care Team (Latest Contact Info) Description 02/24/2023 Travel Social History Tobacco Use Types Packs/Day [...] How often do you attend chur or anglican services? More than 4 times [...] Recorded Patient Health Questionnaire-2 Score 6 12/11/2022 [facility] of Occupat ional Health - [...] st Contact Info) Description 04/14/2024 2:00 PM REINFORCED STEEL PLACING SUPERVISOR Office Visit [facility] Medical Group Multispecialty Care - [facility] 3 [facility], [address] [place] [address] Julio Pulido MD 3 [place] [address] documented as of this encounter Goals Goal Patient Goal Type Associated Problems Recent Progress Patient-Stated? Author Health - patient able to perform ADLs independently General On track(2023 9:49 AM CDT) Dianne Corona RN Note: 12/17/23: Patient stated she is independent with ASL's. Establish Plan for Symptom Monitoring-CHF General On track(2023 11:36 AM REINFORCED STEEL PLACING SUPERVISOR) Dianne Corona RN Note: Patient will [...] Symptom Monitoring-COPD General On track(2023 11:36 AM REINFORCED STEEL PLACING SUPERVISOR) Dianne Corona RN Note: Patient will [...] Symptom Monitoring-DM General On track(2023 4:33 PM REINFORCED STEEL PLACING SUPERVISOR) Dianne Corona RN Note: Patient will [...] Symptom Monitoring-HTN General On track(2023 4:33 PM REINFORCED STEEL PLACING SUPERVISOR) Dianne Corona, RN Note: Patient will [...] documented as of this encounter Care Teams Shoe Parts Molder Relationship Specialty Start Date End Date Sanjeev Webster DO [address] [place] [address] PCP - General FAMILY PRACTICE 09/25/20 Dianne Johnson, RN [address] [place] [address] Heel Molder (Ambulatory) REGISTERED NURSE 08/14/20 documented as of this encounter
--- OUTSIDE RECORDS SUMMARY | 2024-03-15 00:56 | XMS_ITS | Encounter Summary ---
Author Organization [facility] Address [facility]6 [place] [address] [place] [address] Care Team Providers Care Bale Breaker Operator Name Role Phone Dianne Johnson RN Unavailable [phone] Sanjeev Webster DO Primary Care Provider + Reason for Visit * Reason Comments Allied Health Visit INR Encounter Details Date Type Department Care Team (Latest Contact Info) Description 03/23/2023 11:00 AM NATUROPATHIC DOCTOR Allied Health/Nurse Visit [facility] Medical Group Family & Internal Medicine [facility] [address] [place] [address] Sanjeev Webster DO [address] [place] [address] Allied Health Visit (INR) Social [...] Recorded Patient Health Questionnaire-2 Score 6 12/11/2022 [facility] of Occupat ional [...] documented in this encounter Progress Notes * Peng Avery RN - 03/23/2023 11:00 AM CSTAddended by: PENG AVERY on: 03/23/2023 04:41 PM Modules accepted: SmartSet ROPATHIC DOCTOR * Natalee Brown RN - 03/23/2023 11:00 AM CST Patient in today for INR finguer stick. Patient stated she has been taking her medication as prescribed. Patient tolerated well. Patient was critically high. Blood draw completed as well. Patient is aware of results. PCP gave verbal order to the patient and this nurse to hold coumadin x 2 days. Then come back into office for recheck on 03/25/23. Patient daughter in law made aware as well related to she is the one that takes care of patients' medication. Patient notified and verbalized understanding. Opportunity given for all questions to be answered, no further needs voiced at this time. LL-03/23/23 ROPATHIC DOCTOR documented in this encounter Plan of Treatment Upcoming Encounters Date Type Department Care Team (Late st Contact Info) Description 04/14/2024 2:00 PM NATUROPATHIC DOCTOR Office Visit [facility] Medical Group Multispecialty Care - [facility] 3 [facility], [address] [place] [address] Julio Pulido MD 3 [place] [address] documented as of this encounter Goals Goal Patient Goal Type Associated Problems Recent Progress Patient-Stated? Author Health - patient able to perform ADLs independently General On track(2023 9:49 AM CDT) Dianne Corona RN Note: 12/17/23: Patient stated she is independent with ASL's. Establish Plan for Symptom Monitoring-CHF General On track(2023 11:36 AM NATUROPATHIC DOCTOR) Dianne Corona, RN Note: Patient will recognize [...] Symptom Monitoring-COPD General On track(2023 11:36 AM NATUROPATHIC DOCTOR) Dianne Corona RN Note: Patient will recognize [...] Symptom Monitoring-DM General On track(2023 4:33 PM NATUROPATHIC DOCTOR) Dianne Corona RN Note: Patient will manage [...] Symptom Monitoring-HTN General On track(2023 4:33 PM NATUROPATHIC DOCTOR) Dianne Corona RN Note: Patient will monitor [...] Associated Diagnosis Comments PROTHROMBIN TIME, VENOUS Routine 03/23/2023 11:06 AM NATUROPATHIC DOCTOR Chronic anticoagulation COLLECTION VENOUS BLOOD VENIPUNCTURE Routine 03/23/2023 11:05 AM NATUROPATHIC DOCTOR Chronic anticoagulation COLLECT.CAPILLARY (FNGR,HEEL,EAR) Routine 03/23/2023 10:51 AM NATUROPATHIC DOCTOR Chronic anticoagulation PROTHROMBIN TIME, FINGERSTICK Routine 03/23/2023 Chronic anticoagulation documented in this encounter Results * (ABNORMAL) PROTIME/INR, VENOUS (03/23/2023 11:06 AM NATUROPATHIC DOCTOR) PROTIME 63.7(H) 9.3 - 11.6 SEC 03/23/2023 5:17 PM NATUROPATHIC DOCTOR -MISA DIXON INR 7.0(HH) 0.9 - 1.1 03/23/2023 5:17 PM NATUROPATHIC DOCTOR -MISA DIXON Comment: TREATMENT OR PROPHYLAXIS AGAINST: ?? THERAPEUTIC RANGE (INR): ?VENOUS THROMBOSIS ? 2.0-3.0 ?PULMONARY EMBOLUS ? 2.0-3.0 ?? MECHANICAL PROSTHETIC VALVES ? 2.5-3.5 CRITICAL VALUE VERIFIED, CALLED TO, AND READ BACK BY: DR VILLALTA AT [id number] ON [id number]. JS 03/23/2023 11:0 6 AM NATUROPATHIC DOCTOR us Sanjeev Webster DO LABORATORY Final Re sult Performing Organization Address City/[facility]/ZIP Co de Phone Number [facility] [address] [place] [address], [place] [phone] * PROTIME/INR, FINGERSTICK (03/23/2023) INR WHOLE BLOOD 7.80 MG-S [facility] 03/23/2023 us Sanjeev Webster DO LABORATORY Final Re sult Performing Organization Address [facility] Co de Phone Number [facility] [address] [place] [address], documented in this encounter Visit Diagnoses Diagnosis Chronic anticoagulation- Primary Encounter for long-term (current) use of anticoagulants documented in this encounter Additional Health Concerns Assessment Noted Time PHQ-9 Depression Total Score: 13 023 3:56 PM CDT documented as of this encounter Care Teams Bale Breaker Operator Relationship Specialty Start Date End Date Sanjeev Webster DO [address] [place] [address] PCP - General FAMILY PRACTICE 09/25/20 Dianne Johnson, RN [address] [place] [address] Crm Marketing Specialist (Ambulatory) REGISTERED NURSE 08/14/20 documented as of this encounter
--- OUTSIDE RECORDS SUMMARY | 2024-03-15 00:56 | XMS_ITS | Encounter Summary ---
Author Organization [facility] Address [facility]6 [facility]. [place], [place] [address] [place] [address] Care Team Providers Care Head Pastry Chef Name Role Phone Dianne Johnson RN Unavailable [phone] Sanjeev Webster DO Primary Care Provider + Reason for Visit * Reason Onset Date Comments Concerns 03/10/2023 Encounter Details Date Type Department Care Team (Late st Contact Info) Description 03/10/2023 Telephone [facility] Medical Group Family & Internal Medicine [place] [address] [place] [address] Sanjeev Webster DO [address] [place] [address] Concerns Social History Tobacco Use [...] How often do you attend chur or confucianism services? More than 4 times [...] Recorded Patient Health Questionnaire-2 Score 6 12/11/2022 [facility] of Occupat ional Health [...] Progress Notes * Trixie Jose MA - 03/10/2023 5:44 PM CST Patient contacted and Appt made with Dr. Florence ORK SERVICES PROJECT MANAGER * MARU Hodge - 03/10/2023 5:[address] Florence and I both have appts tomorrow and if she would like to be seen for an ACUTE visit. ORK SERVICES PROJECT MANAGER * Dianne Johnson RN - 03/10/2023 3:53 PM CST Patient stated she has a low grade temperature of 99 F, sore throat, nasal drainage and coughing upgreen mucus. Onset over a week. Stated symptoms are getting better but stated she needs an antibiotic. She's been gargling with salt water and using nose drops without any relief. Reports scratchychest and CP when she is coughing. Using quick relief inhaler more often. Her sister was going to take her to urgent care but unable to drive in the dark. Patient [facility] pharmacy if approves. ORK SERVICES PROJECT MANAGER documented in this encounter Plan of Treatment Upcoming Encounters Date Type Department Care Team (Late st Contact Info) Description 04/14/2024 2:00 PM NETWORK SERVICES PROJECT MANAGER Office Visit [facility] Medical Group Multispecialty Care - [address], [address] [place] [phone] Julio Pulido MD [address] [place] [address] documented as of this encounter Goals Goal Patient Goal Type Associated Problems Recent Progress Patient-Stated? Author Health - patient able to perform ADLs independently General On track(2023 9:49 AM CDT) Dianne Corona RN Note: 12/17/23: Patient stated she is independent with ASL's. Establish Plan for Symptom Monitoring-CHF General On track(2023 11:36 AM NETWORK SERVICES PROJECT MANAGER) Dianne Corona RN Note: Patient will [...] Symptom Monitoring-COPD General On track(2023 11:36 AM NETWORK SERVICES PROJECT MANAGER) Dianne Corona RN Note: Patient will [...] Symptom Monitoring-DM General On track(2023 4:33 PM NETWORK SERVICES PROJECT MANAGER) Dianne Corona RN Note: Patient will [...] Symptom Monitoring-HTN General On track(2023 4:33 PM NETWORK SERVICES PROJECT MANAGER) Dianne Corona RN Note: Patient will [...] as of this encounter Care Teams Head Pastry Chef Relationship Specialty Start Date End Date Sanjeev Webster DO [address] [place] [address] PCP - General FAMILY PRACTICE 09/25/20 Dianne Johnson, RN [address] [place] [address] Consumer Analyst (Ambulatory) REGISTERED NURSE 08/14/20 documented as of this encounter
--- OUTSIDE RECORDS SUMMARY | 2024-03-15 00:56 | XMS_ITS | Encounter Summary ---
Author Organization [facility] Address [facility]6 [facility] [place] [address] [place] [address] Care Team Providers Care Speech Assistant Name Role Phone Dianne Johnson RN Unavailable [phone] Sanjeev Webster DO Primary Care Provider + Reason for Visit * Reason Onset Date Comments Record Request 02/17/2023 Encounter Details Date Type Department Care Team (Late st Contact Info) Description 02/17/2023 Telephone [facility] Medical Group Family & Internal Medicine [place] [place] [address] Sanjeev Webster DO [address] [place] [address] Record Request Social History Tobacco Use Types [...] often do you attend chur ch or yazdanism services? More than 4 times [...] Recorded Patient Health Questionnaire-2 Score 6 12/11/2022 [facility] of Occupat ional Health [...] documented in this encounter Progress Notes * Neeta Martinez MA - 02/20/2023 8:49 AM CST Received and sent to PCP BOTOMY PROGRAM COORDINATOR * Neeta Martinez MA - 02/17/2023 1:55 PM CST I have faxed Dr. Hauser for recent consult notes BOTOMY PROGRAM COORDINATOR documented in this encounter Plan of Treatment Upcoming Encounters Date Type Department Care Team (Late st Contact Info) Description 04/14/2024 2:00 PM PHLEBOTOMY PROGRAM COORDINATOR Office Visit [facility] Medical Group Multispecialty Care - [facility] 3 [facility], [address] [place] [address] Julio Pulido MD [address] [place] [address] documented as of this encounter Goals Goal Patient Goal Type Associated Problems Recent Progress Patient-Stated? Author Health - patient able to perform ADLs independently General On track(2023 9:49 AM CDT) Dianne Corona, DALE Note: 12/17/23: Patient stated she is independent with ASL's. Establish Plan for Symptom Monitoring-CHF General On track(2023 11:36 AM PHLEBOTOMY PROGRAM COORDINATOR) Dianne Corona RN Note: Patient will [...] Symptom Monitoring-COPD General On track(2023 11:36 AM PHLEBOTOMY PROGRAM COORDINATOR) Dianne Corona RN Note: Patient will [...] Symptom Monitoring-DM General On track(2023 4:33 PM PHLEBOTOMY PROGRAM COORDINATOR) Dianne Corona RN Note: Patient will [...] Symptom Monitoring-HTN General On track(2023 4:33 PM PHLEBOTOMY PROGRAM COORDINATOR) Dianne Corona RN Note: Patient will [...] documented as of this encounter Care Teams Speech Assistant Relationship Specialty Start Date End Date Sanjeev Webster DO [address] [place] [address] PCP - General FAMILY PRACTICE 09/25/20 Dianne Johnson, RN [address] [place] [address] Senior Managing Director (Ambulatory) REGISTERED NURSE 08/14/20 documented as of this encounter
--- OUTSIDE RECORDS SUMMARY | 2024-03-15 00:56 | XMS_ITS | Encounter Summary ---
Author Organization [facility] Address Critical access hospital6 [facility] [place] [address] [place] [address] Care Team Providers Care Manager Animal Name Role Phone Dianne Johnson RN Unavailable [phone] Sanjeev Webster DO Primary Care Provider + Reason for Visit * Reason Comments Image (SCAN) Lab (SCAN) Encounter Details Date Type Department Care Team (Late st Contact Info) Description 02/03/2023 Scan HEALTH INFO SRVCS Scanned, Doc Med Group Image (SCAN); Lab (SCAN) Social History Tobacco Use Types [...] Patient Health Questionnaire-2 Score 6 12/11/2022 [facility] [...] st Contact Info) Description 04/14/2024 2:00 PM CONSTRUCTION COST ESTIMATOR Office Visit [facility] Multispecialty Care - [facility] [address] [facility], [address] [place] [address] Julio Pulido MD 3 [place] [address] documented as of this encounter Goals Goal Patient Goal Type Associated Problems Recent Progress Patient-Stated? Author Health - patient able to perform ADLs independently General On track(2023 9:49 AM CDT) Dianne Corona RN Note: 12/17/23: Patient stated she is independent with ASL's. Establish Plan for Symptom Monitoring-CHF General On track(2023 11:36 AM CONSTRUCTION COST ESTIMATOR) Dianne Corona RN Note: Patient will recognize [...] Symptom Monitoring-COPD General On track(2023 11:36 AM CONSTRUCTION COST ESTIMATOR) Dianne Corona RN Note: Patient will recognize [...] Symptom Monitoring-DM General On track(2023 4:33 PM CONSTRUCTION COST ESTIMATOR) Dianne Corona RN Note: Patient will manage [...] Symptom Monitoring-HTN General On track(2023 4:33 PM CONSTRUCTION COST ESTIMATOR) Dianne Corona, DALE Note: Patient will monitor [...] Associated Diagnosis Comments OUTSIDE LAB (SCAN ORDER) 02/03/2023 OUTSIDE LAB (SCAN ORDER) 02/03/2023 OUTSIDE LAB (SCAN ORDER) 02/03/2023 OUTSIDE LAB (SCAN ORDER) 02/03/2023 OUTSIDE LAB (SCAN ORDER) 02/03/2023 OUTSIDE LAB (SCAN ORDER) 02/03/2023 OUTSIDE LAB (SCAN ORDER) 02/03/2023 OUTSIDE LAB (SCAN ORDER) 02/03/2023 OUTSIDE LAB (SCAN ORDER) 02/03/2023 OUTSIDE LAB (SCAN ORDER) 02/03/2023 OUTSIDE LAB (SCAN ORDER) 02/03/2023 OUTSIDE LAB (SCAN ORDER) 02/03/2023 OUTSIDE LAB (SCAN ORDER) 02/03/2023 OUTSIDE LAB (SCAN ORDER) 02/03/2023 OUTSIDE LAB (SCAN ORDER) 02/03/2023 OUTSIDE LAB (SCAN ORDER) 02/03/2023 OUTSIDE LAB (SCAN ORDER) 02/03/2023 IMAGE GENERIC 02/03/2023 IMAGE GENERIC 02/03/2023 IMAGE GENERIC 02/03/2023 documented in this encounter Results * OUTSIDE LAB (SCAN ORDER) (02/03/2023) 02/03/2023 [facility] Scanned SCANNING Final Resu lt * OUTSIDE LAB (SCAN ORDER) (02/03/2023) 02/03/2023 [facility] Scanned SCANNING Final Resu lt * OUTSIDE LAB (SCAN ORDER) (02/03/2023) 02/03/2023 [facility] Scanned SCANNING Final Resu lt * OUTSIDE LAB (SCAN) (02/03/2023) 02/03/2023 [facility] Scanned SCANNING Final Resu lt * OUTSIDE LAB (SCAN) (02/03/2023) 02/03/2023 [facility] Scanned SCANNING Final Resu lt * OUTSIDE LAB (SCAN) (02/03/2023) 02/03/2023 [facility] Scanned SCANNING Final Resu lt * OUTSIDE LAB (SCAN) (02/03/2023) 02/03/2023 [facility] Scanned SCANNING Final Resu lt * OUTSIDE LAB (SCAN) (02/03/2023) 02/03/2023 Result [facility] Scanned SCANNING Final Resu lt * OUTSIDE LAB (SCAN) (02/03/2023) 02/03/2023 Result [facility] Scanned SCANNING Final Resu lt * OUTSIDE LAB (SCAN) (02/03/2023) 02/03/2023 Result [facility] Scanned SCANNING Final Resu lt * OUTSIDE LAB (SCAN) (02/03/2023) 02/03/2023 Result [facility] Scanned SCANNING Final Resu lt * OUTSIDE LAB (SCAN) (02/03/2023) 02/03/2023 Result [facility] Scanned SCANNING Final Resu lt * OUTSIDE LAB (SCAN) (02/03/2023) 02/03/2023 Result [facility] Scanned SCANNING Final Resu lt * OUTSIDE LAB (SCAN) (02/03/2023) 02/03/2023 [facility] Scanned SCANNING Final Resu lt * OUTSIDE LAB (SCAN) (02/03/2023) 02/03/2023 Result [facility] Scanned SCANNING Final Resu lt * OUTSIDE LAB (SCAN) (02/03/2023) 02/03/2023 Result [facility] Scanned SCANNING Final Resu lt * OUTSIDE LAB (SCAN) (02/03/2023) 02/03/2023 Result [facility] Scanned SCANNING Final Resu lt * IMAGE GENERIC (02/03/2023) Anatomical Region Laterality Modality Other 02/03/2023 Result [facility] Scanned SCANNING Final Resu lt * IMAGE GENERIC (02/03/2023) Anatomical Region Laterality Modality Other 02/03/2023 Result [facility] Scanned SCANNING Final Resu lt * IMAGE GENERIC (02/03/2023) Anatomical Region Laterality Modality Other 02/03/2023 Result [facility] Scanned SCANNING Final Resu lt documented in this encounter Visit Diagnoses Not on filedocumented in this encounter Additional Health Concerns Assessment Noted Time PHQ-9 Depression Total Score: 13 023 3:56 PM CDT documented as of this encounter Care Teams Manager Animal Relationship Specialty Start Date End Date Sanjeev Webster DO [address] [place] [id number] PCP - General FAMILY PRACTICE 09/25/20 Dianne Johnson, RN [address] [place] [address] Customer Counter Associate (Ambulatory) REGISTERED NURSE 08/14/20 documented as of this encounter
--- OUTSIDE RECORDS SUMMARY | 2024-03-15 00:56 | XMS_ITS | Encounter Summary ---
Author Organization [facility] Address formerly [facility] [place] [address] [place] [address] Care Team Providers Care Hyperbaric Technologist Name Role Phone Dianne Johnson RN Unavailable [phone] Sanjeev Montez DO Primary Care Provider + Reason for Visit * Reason Comments URI The patient states s he has had cold sx for 10 days. Encounter Details Date Type Department Care Team (Late st Contact Info) Description 03/11/2023 11:40 AM FIRST ASSIST Office Visit [facility] Family & Internal Medicine [address] [address] Sanjeev Montez DO [address] [place] [phone] URI (The patient states she has had cold sx for 10 days. ) Social History Tobacco Use Types Packs/Day [...] Recorded Patient Health Questionnaire-2 Score 6 12/11/2022 [facility] - Occupational Stress [...] Sign Reading Time Taken Comments Blood Pressure 132/88 03/11/2023 11:54 AM FIRST ASSIST Pulse 74 03/11/2023 11:54 AM FIRST ASSIST Temperature 37.3 ??C (99.1 ??F) 03/11/2023 11:[address] Respiratory Rate 16 03/11/2023 11:54 AM FIRST ASSIST Oxygen Saturation 98% 03/11/2023 11:54 AM FIRST ASSIST Inhaled Oxygen Concentration - - Weight 79 kg (174 lb 3.2 oz) 03/11/2023 11:54 AM FIRST ASSIST Height 165.1 cm (5' 5 ) 03/11/2023 11:54 AM FIRST ASSIST Body Mass Index 28.99 03/11/2023 11:54 AM FIRST ASSIST documented in this encounter Functional Status * [...] encounter Progress Notes * Sanjeev Montez, - 03/11/2023 11:40 AM CST Images from the original note were not included. GENERAL OFFICE VISIT Encounter Date: 03/11/2023 Chief Complaint: 77-year-old female presents for URI (The patient states she has had cold sx for 10 days. ) HPI: Patient states symptoms have been present for 10 days. Symptoms include low grade fever, nasal drainage, sore throat, productive cough, chills, SOB, and chest pain with coughing. Pertinent negatives include Myalgias and Rash. Patient has no sick contacts. OTC medications tried include OTC nasal spray and cough medicine. Review of Systems Constitutional: Negative for fever. HENT: See HPI Respiratory: See HPI Cardiovascular: See HPI Musculoskeletal: Negative for myalgias. Skin: Negative for rash. Patient Active Problem List Diagnosis Abnormal stress test Chronic anticoagulation Coronary artery disease involving hoh coronary artery of hoh heart without angina pectoris Dyspnea on exertion H/O mechanical aortic valve replacement Hypertensive heart disease with congestive heart failure ([facility]) ([facility]) LBBB (left bundle branch block) Myopathy VAZQUEZ (obstructive sleep apnea) Paroxysmal atrial flutter ([facility]) ([facility]) Benign hypertension with CKD (chronic kidney disease) stage III ([facility]) Memory deficits Hearing deficit, bilateral History of cataract extraction, unspecified laterality Vitamin D deficiency Hypercalcemia Chronic frontal sinusitis Constipation, unspecified constipation type Chronic bilateral low back pain without sciatica Iron deficiency anemia, unspecified iron deficiency anemia type Disorder of skin of trunk Anemia Body mass index (BMI) 31.0-31.9, adult 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[facility]) Benign hypertension with stage 3b chronic kidney disease ([facility]) Cobalamin deficiency Compression fracture of thoracic vertebra ([facility]) ([facility]) Depression Diabetic polyneuropathy ([facility]) ([facility]) Disorder of rotator cuff Diverticular disease Dysphagia Elevated troponin Gastroesophageal reflux disease without esophagitis Hyperlipidemia, unspecified hyperlipidemia type Vascular dementia ([facility]) Unknown and unspecified causes of morbidity Syncope, unspecified syncope type Wrist joint pain Respiratory illness Requires lifelong warfarin therapy Secondary hyperparathyroidism ([facility]) ([facility]) Presence of prosthetic heart valve Plantar fascial fibromatosis Peripheral neuropathy Parathyroid adenoma Polymyalgia rheumatica ([facility]) ([facility]) Osteoporosis Numbness Muscle cramps Closed stable burst fracture of sixth thoracic vertebra, initial encounter ([facility]) ([facility]) Chest pain Contusion of scalp Knee pain Localized, primary osteoarthritis Osteoarthritis of knee Traumatic closed displaced fracture of distal end of radius Shoulder joint pain Hyperlipidemia associated with type 2 diabetes mellitus ([facility]) ([facility]) PVD (peripheral vascular disease) ([facility]) Hematoma Anxiety Diastolic heart failure ([facility]) ([facility]) Internal hemorrhoids Leukoencephalopathy Major depression single episode, in partial remission ([facility]) Metacarpal bone fracture Mitral valve disorder Peripheral arterial occlusive disease ([facility]) Primary osteoarthritis involving multiple joints Vision loss COPD (chronic obstructive pulmonary disease) ([facility]) ([facility]) Diarrhea Drug-induced constipation H/O mechanical aortic valve replacement Age-related osteoporosis with current pathological fracture Care Management Physical deconditioning Chronic heart failure with preserved ejection fraction (HFpEF) ([facility]) ([facility]) Paroxysmal atrial fibrillation ([facility]) ([facility]) Hypertension associated with type 2 diabetes mellitus ([facility]) ([facility]) Encounter for prophylactic measures, unspecified Graves' disease Cirrhosis of liver without ascites, unspecified hepatic cirrhosis type ([facility]) ([facility]) Stage 3b chronic kidney disease ([facility]) OLIVE (acute kidney injury) ([facility]) Heart failure with mildly reduced ejection fraction (HFmrEF) ([facility]) ([facility]) 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 Anxiety Atrial fibrillation with rapid ventricular response ([facility]) ([facility]) 08/22/2020 Atrial flutter ([facility]) ([facility]) Cataract Chronic anticoagulation due to mechanical heart valve Chronic pain Diabetes mellitus ([facility]) ([facility]) H/O mechanical aortic valve replacement 2003 [...] 10 min Stress: Stress Concern Present (08/26/2022) [facility] - Occupational Stress Questionnaire Feeling of Stress : To some extent Social Connections: Moderately Isolated (08/26/2022) Social Connection and Isolation Panel [NHANES] Frequency of Communication with Friends and Family: Three times a week Frequency of Social Gatherings with Friends and Family: Three times a week Attends [employer] Services: More than 4 times per year [...] (Generic) 06/05/2016, 09/05/2020 Tetanus/Diptheria 07/22/2014 Zoster (Zostavax) 35755 Unt/0.65Ml 12/25/2015 Current Outpatient Medications Medication Sig Dispense Refill benzonatate (TESSALON PERLES) 100 MG capsule Take 1 capsule (100 mg total) by mouth 3 (three) timesdaily as needed for Cough. 20 capsule 0 doxycycline hyclate (VIBRAMYCIN) 100 MG capsule Take 1 capsule (100 mg total) by mouth 2 (two) times daily for 10 days. 20 capsule 0 predniSONE (DELTASONE) 20 MG tablet Take 3 tablets for three days, then take 2 tablets for three days, then take 1 tablet for three days 18 tablet 0 acetaminophen (TYLENOL) 500 MG tablet [...] Pain Cramping in legs Objective: Filed Vitals: 03/11/23 1154 BP: 132/88 Pulse: 74 Resp: 16 Temp: 99.1 ??F (37.3 ??C) TempSrc: Skin SpO2: 98% Weight: 79 kg (174 lb 3.2 oz) Height: 1.651 m (5' 5 ) Physical Exam Vitals and nursing note reviewed. HENT: Head: Normocephalic and atraumatic. Right Ear: Tympanic membrane, ear canal and external ear normal. Left Ear: Tympanic membrane, ear canal and external ear normal. Mouth/Throat: Mouth: Mucous membranes are moist. Pharynx: No oropharyngeal exudate. Eyes: General: No scleral icterus. Conjunctiva/sclera: Conjunctivae normal. Cardiovascular: Rate and Rhythm: Normal rate and regular rhythm. Heart sounds: Normal heart sounds. No murmur heard. No friction rub. No gallop. Pulmonary: Effort: Pulmonary effort is normal. No respiratory distress. Breath sounds: Wheezing present. No rales. Comments: Wheezing present in all diane, expiratory Abdominal: Palpations: Abdomen is soft. Tenderness: There is no abdominal tenderness. Musculoskeletal: Cervical back: Neck supple. Lymphadenopathy: Cervical: No cervical adenopathy. Skin: General: Skin is warm and dry. Findings: No rash. Neurological: Mental Status: She is alert and oriented to person, place, and time. Psychiatric: Mood and Affect: Mood and affect normal. CXR: No acute pathology Assessment & Plan: Radha was seen today for uri. Diagnoses and all orders for this visit: Bronchitis - benzonatate (TESSALON PERLES) 100 MG capsule; Take 1 capsule (100 mg total) by mouth 3 (three) times daily as needed for Cough. - predniSONE (DELTASONE) 20 MG tablet; Take 3 tablets for three days, then take 2 tablets for threedays, then take 1 tablet for three days - doxycycline hyclate (VIBRAMYCIN) 100 MG capsule; Take 1 capsule (100 mg total) by mouth 2 (two) times daily for 10 days. Shortness of breath - XR CHEST PA+LAT; Future Discussion/Summary: Suspect bronchitis based upon presentation today. Will treat as per above; call back if worsening or not improving. Red flag symtpoms discussed and need to to go to ER if they present themselves. F/unext week as scheduled. Pt v/u. I personally spent a total of 30 minutes on the day of the encounter. This includes [id number] and zas-gilo-kw-face time I provided on the day of the encounter & excludes time spent performing separately reportable services. Sanjeev Montez DO T ASSIST documented in this encounter Plan of Treatment Upcoming Encounters Date Type Department Care Team (Late st Contact Info) Description 04/14/2024 2:00 PM FIRST ASSIST Office Visit [facility] Multispecialty Care - [facility] [address] [facility], [address] [place] [address] Julio Pulido MD [address] [place] [address] documented as of this encounter Goals Goal Patient Goal Type Associated Problems Recent Progress Patient-Stated? Author Health - patient able to perform ADLs independently General On track(2023 9:49 AM CDT) Dianne Corona, RN Note: 12/17/23: Patient stated she is independent with ASL's. Establish Plan for Symptom Monitoring-CHF General On track(2023 11:36 AM FIRST ASSIST) Dianne Corona, RN Note: Patient will recognize [...] Symptom Monitoring-COPD General On track(2023 11:36 AM FIRST ASSIST) Dianne Corona, RN Note: Patient will recognize [...] Symptom Monitoring-DM General On track(2023 4:33 PM FIRST ASSIST) Dianne Corona RN Note: Patient will manage [...] Symptom Monitoring-HTN General On track(2023 4:33 PM FIRST ASSIST) Dianne Corona RN Note: Patient will monitor B/P several times per week , record readings and report to physician or CC if B/P consistently >130/80 Take your medications as prescribed. Follow up with your provider as scheduled. Take your blood pressure at least several times a week if able. documented as of this encounter Results * XR CHEST PA+LAT (03/11/2023 1:30 PM FIRST ASSIST) Anatomical Region Laterality Modality Chest Radiographic Jennifer ging 03/11/2023 3:37 PM FIRST ASSIST Impressions 03/11/2023 3:38 PM FIRST ASSIST IMPRESSION: No definitive radiographic evidence of active chest disease. Ordered By: SANJEEV MONTEZ Interpreted By: Rao Hoyt MD, 03/11/2023 3:37 PM Narrative 03/11/2023 3:38 PM FIRST ASSIST Examination: XR CHEST PA+LAT Exam time: 03/11/2023 12:13 PM Clinical history: Cough. Shortness of breath. Comparison: 02/16/2023 upright PA and lateral views Technique: Upright PA and lateral views Findings: Sternotomy and aortic valve replacement changes. Cardiac silhouette and pulmonary vasculature are within normal limits. Slightly prominent left pericardiac apical fat pad. No evidence of focal atelectasis or consolidation throughout either lung. No evidence of pleural effusion. Overall, no radiographic evidence of active chest disease. Procedure Note Rao Hoyt MD - 03/11/2023 Examination: XR CHEST PA+LAT Exam time: 03/11/2023 12:13 PM Clinical history: Cough. Shortness of breath. Comparison: 02/16/2023 upright PA and lateral views Technique: Upright PA and lateral views Findings: Sternotomy and aortic valve replacement changes. Cardiacsilhouette and pulmonary vasculature are within normal limits. Slightlyprominent left pericardiac apical fat pad. No evidence of focalatelectasis or consolidation throughout either lung. No evidence ofpleural effusion. Overall, no radiographic evidence of active chestdisease. IMPRESSION: No definitive radiographic evidence of active chest disease. Ordered By: SANJEEV MONTEZ Interpreted By: Rao Hoyt MD, 03/11/2023 3:37 PM aSnjeev Montez DO GENERAL IMAGING Final Re sult documented in this encounter Visit Diagnoses Diagnosis Bronchitis- Primary Bronchitis, not specified as acute or chronic Shortness of breath documented in this encounter Additional Health Concerns Assessment Noted Time PHQ-9 Depression Total Score: 13 023 3:56 PM CDT documented as of this encounter Care Teams Hyperbaric Technologist Relationship Specialty Start Date End Date Sanjeev Mnotez DO [address] [place] [address] PCP - General FAMILY PRACTICE 7/20/21 Dianne Johnson, RN [address] [place] [address] Bundle Tier (Ambulatory) REGISTERED NURSE 08/14/20 documented as of this encounter
--- OUTSIDE RECORDS SUMMARY | 2024-03-15 00:56 | XMS_ITS | Encounter Summary ---
Author Organization [facility] Address [facility]6 [facility] [place] [address] [place] [address] Care Team Providers Care Blower And Compressor Assembler Name Role Phone Casey Johnson RN Unavailable [phone] Sanjeev Webster DO Primary Care Provider + Reason for Visit * Reason Onset Date Comments Care Management 03/10/2023 Encounter Details Date Type Department Care Team (Late st Contact Info) Description 03/10/2023 Patient Outreach [facility] Family & Internal Medicine [address] [id number] Casey Johnson, RN [address] [place] [address] Care Management Social History Tobacco [...] Progress Notes * Casey Johnson RN - 03/10/2023 2:33 PM CST Chronic Care Management: 03/10/23: Patient left a message to return her phone call. Returned phone call. See below for details. Patient Status: Patient stated she has a low grade temperature of 99 F, sore throat, nasal drainage and coughing upgreen mucus. Onset over a week. Stated symptoms are getting better but needs an antibiotic. She's been gargling with salt water and using nose drops without any relief. Reports scratchy chest andCP when she is coughing. During call patient stated personal lines account manager for her dog is at her home now. Sheis using her inhaler more often then usual. Her sister is taking her to Urgent care in [place]. Patient had to end phone call. CC will continue to follow up by phone. 03/10/23: Patient called back and stated her sister can't drive when it's dark. Patient prefers to have PCP send in an antibiotic to [facility] pharmacy. Instructed patient to call 911 if she has a life threatening emergency with CP. Patient stated she only has chest pain when she is coughing. Message sent to nursing team. Plan of Care: leave coordinator will continue to follow up by phone, provide resources when needed, educate on disease management, and assess chronic conditions. Patient Goals: Goals Addressed This Visit's Progress Establish Plan for Symptom Monitoring-COPD Not on track Patient will recognize symptoms of COPD [...] as scheduled. 04/16/22: A1C on 01/13/22: 6.2 Upcoming Visit Appointments: Future Appointments Date Time Provider Department Center 03/16/2023 1:00 PM Sanjeev Webster DO [id number] 04/07/2023 2:[address] [facility] 04/09/2023 1:40 PM Julio Pulido MD [facility] 04/10/2023 1:00 PM ALEX ECHO 1 SEONOIV [facility] 04/14/2023 3:00 PM ALEX MRI [facility] 04/14/2023 4:00 PM ALEX MRI [facility] 09/04/2023 1:00 PM Sania Gomez MD [facility] Quality care gaps: Health Maintenance Topic Date Due Kidney Health Evaluation Never done Lipid Panel 08/29/2022 ASCVD LDL [...] test Chronic anticoagulation Coronary artery disease involving flandreau coronary artery of flandreau heart without angina pectoris Dyspnea on exertion H/O mechanical aortic valve replacement Hypertensive heart disease with congestive heart failure ([facility]/H[facility]) ([facility]) LBBB (left bundle branch block) Myopathy VAZQUEZ (obstructive sleep apnea) Paroxysmal atrial flutter ([facility]) ([facility]) Benign hypertension with CKD (chronic kidney disease) stage III ([facility]) Memory deficits Hearing deficit, bilateral History of cataract extraction, unspecified laterality Vitamin D deficiency Hypercalcemia Chronic frontal sinusitis Constipation, unspecified constipation type Chronic bilateral low back pain without sciatica Iron deficiency anemia, unspecified iron deficiency anemia type Disorder of skin of trunk Anemia Body mass index (BMI) 31.0-31.9, adult 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[facility]) Benign hypertension with stage 3b chronic kidney disease ([facility]) Cobalamin deficiency Compression fracture of thoracic vertebra ([facility]) ([facility]) Depression Diabetic polyneuropathy ([facility]) ([facility]) Disorder of rotator cuff Diverticular disease Dysphagia Elevated troponin Gastroesophageal reflux disease without esophagitis Hyperlipidemia, unspecified hyperlipidemia type Vascular dementia ([facility]) Unknown and unspecified causes of morbidity Syncope, unspecified syncope type Wrist joint pain Respiratory illness Requires lifelong warfarin therapy Secondary hyperparathyroidism ([facility]) ([facility]) Presence of prosthetic heart valve Plantar fascial fibromatosis Peripheral neuropathy Parathyroid adenoma Polymyalgia rheumatica ([facility]) ([facility]) Osteoporosis Numbness Muscle cramps Closed stable burst fracture of sixth thoracic vertebra, initial encounter ([facility]) ([facility]) Chest pain Contusion of scalp Knee pain Localized, primary osteoarthritis Osteoarthritis of knee Traumatic closed displaced fracture of distal end of radius Shoulder joint pain Hyperlipidemia associated with type 2 diabetes mellitus ([facility]) ([facility]) PVD (peripheral vascular disease) ([facility]) Hematoma Anxiety Diastolic heart failure ([facility]) ([facility]) Internal hemorrhoids Leukoencephalopathy Major depression single episode, in partial remission ([facility]) Metacarpal bone fracture Mitral valve disorder Peripheral arterial occlusive disease ([facility]) Primary osteoarthritis involving multiple joints Vision loss COPD (chronic obstructive pulmonary disease) ([facility]) ([facility]) Diarrhea Drug-induced constipation H/O mechanical aortic valve replacement Age-related osteoporosis with current pathological fracture Care Management Physical deconditioning Chronic heart failure with preserved ejection fraction (HFpEF) ([facility]) ([facility]) Paroxysmal atrial fibrillation ([facility]) ([facility]) Hypertension associated with type 2 diabetes mellitus ([facility]) ([facility]) Encounter for prophylactic measures, unspecified Graves' disease Cirrhosis of liver without ascites, unspecified hepatic cirrhosis type ([facility]) ([facility]) Stage 3b chronic kidney disease ([facility]) OLIVE (acute kidney injury) ([facility]) Heart failure with mildly reduced ejection fraction (HFmrEF) ([facility]) ([facility]) Medications: Current Outpatient Medications Medication Sig [...] with Patient Time spent with patient (minutes): 8 Time spent performing chart review (minutes): 6 Total time (minutes): 14 CASEY JOHNSON RN I reviewed the patient's status and education provided by CASEY JOHNSON RN. I agree with the findings and recommendations made. Cosigned by Sanjeev Webster DO at 03/12/2023 3:41 PM JUNIOR WEB DESIGNER OR WEB DESIGNER OR WEB DESIGNER documented in this encounter Plan of Treatment Upcoming Encounters Date Type Department Care Team (Late st Contact Info) Description 04/14/2024 2:00 PM JUNIOR WEB DESIGNER Office Visit [facility] Multispecialty Care - [facility] [address] [facility], [address] [place] [phone] Julio Pulido MD [address] [place] [address] documented as of this encounter Goals Goal Patient Goal Type Associated Problems Recent Progress Patient-Stated? Author Health - patient able to perform ADLs independently General On track(2023 9:49 AM CDT) Casey Corona RN Note: 12/17/23: Patient stated she is independent with ASL's. Establish Plan for Symptom Monitoring-CHF General On track(2023 11:36 AM JUNIOR WEB DESIGNER) Casey Corona RN Note: Patient will recognize [...] Symptom Monitoring-COPD General On track(2023 11:36 AM JUNIOR WEB DESIGNER) Casey Corona, DALE Note: Patient will recognize [...] Symptom Monitoring-DM General On track(2023 4:33 PM JUNIOR WEB DESIGNER) Casey Corona RN Note: Patient will manage [...] Symptom Monitoring-HTN General On track(2023 4:33 PM JUNIOR WEB DESIGNER) Casey Corona, DALE Note: Patient will monitor B/P several times per week , record readings and report to physician or CC if B/P consistently >130/80 Take your medications as prescribed. Follow up with your provider as scheduled. Take your blood pressure at least several times a week if able. documented as of this encounter Visit Diagnoses Diagnosis Chronic obstructive pulmonary disease, unspecified COPD type ([facility])- Primary Type 2 diabetes mellitus with stage 3b chronic kidney disease, without long-term current use of insulin ([facility]) documented in this encounter Additional Health Concerns Assessment Noted Time PHQ-9 Depression Total Score: 13 023 3:56 PM CDT documented as of this encounter Care Teams Blower And Compressor Assembler Relationship Specialty Start Date End Date Sanjeev Webster DO [address] [place] [address] [phone] PCP - General FAMILY PRACTICE 09/25/20 Casey Johnson RN [address] [place] [address] Configuration Analyst (Ambulatory) REGISTERED NURSE 08/14/20 documented as of this encounter
--- OUTSIDE RECORDS SUMMARY | 2024-03-15 00:56 | XMS_ITS | Encounter Summary ---
Author Organization [facility] Address [facility]. [place], [place] [address] [place] [address] Care Team Providers Care Movie Producer Name Role Phone Dianne Johnson RN Unavailable [phone] Sanjeev Webster DO Primary Care Provider + Reason for Visit * Reason Comments CHF 4MO Atrial Fibrillation Lipids * Consultation (Urgent) - Closed Specialty Diagnoses / Procedures Referred By Contac t Referred To Contact CARDIOLOGY / Cardiology Diagnoses Chronic heart failure with preserved ejection fraction (HFpEF) ([facility] HHS/[facility]) Paroxysmal atrial fibrillation ([facility]) LBBB (left bundle branch block) Coronary artery disease involving [place] coronary artery of [place] heart without angina pectoris Procedures OFFICE/OUTPT VISIT,NEW,LEVL III OFFICE/OUTPT VISIT,NEW,LEVL IV OFFICE/OUTPT VISIT,NEW,LEVL V OFFICE/OUTPT VISIT,EST,LEVL III OFFICE/OUTPT VISIT,EST,LEVL IV OFFICE/OUTPT VISIT,EST,LEVL V Sanjeev Webster DO [address] [place] [address] Phone: tel: fax: Sania Gomez MD [facility] [address] [place] [address] Phone: tel: fax: Referral ID Status Reason Start Date Expiration Date V isits Requested Visits Authorized [id number] Closed Specialty Services 09/22/2022 09/23/2023 12 12 Encounter Details Date Type Department Care Team (Latest Contact Info) Description 02/27/2023 12:00 PM PERFORMANCE TEST ARCHITECT Teleconsult [facility] [phone] Sania Gomez MD [address] [facility] [address] [place], [place] [id number] CHF (4MO); Atrial Fibrillation; Lipids Social History Tobacco Use [...] any clubs o r organizations such as adventist groups, unions, fraternal or athletic groups, or [...] Recorded Patient Health Questionnaire-2 Score 6 12/11/2022 [facility] - Occupational Stress Questionnaire Answer Date [...] Sign Reading Time Taken Comments Blood Pressure - - Pulse - - Temperature - - Respiratory Rate - - Oxygen Saturation - - Inhaled Oxygen Concentration - - Weight 83.9 kg (185 lb) 02/27/2023 10:57 AM PERFORMANCE TEST ARCHITECT Height 165.1 cm (5' 5 ) 02/27/2023 10:57 AM PERFORMANCE TEST ARCHITECT Body Mass Index 30.79 02/27/2023 10:57 AM PERFORMANCE TEST ARCHITECT documented in this encounter Functional Status * [...] Author Status No 08/26/2022 7:46 PM CDT Schniepp, [place] M, RN Active documented in this encounter Progress Notes * Sania Gomez MD - 02/27/2023 12:00 PM CST Images from the original note were not included. [place], [place] [address] Cardiology Consult PCP: Sanjeev Webster DO Past Cardiac History Prior to Appointment HFmrEF c/b RV dysfunction and pHTN: TTE 10/2021 EF 40-45% - lasix 20/40 QOD, Kchlor 10 meq QD Paroxysmal A. Fib: Warfarin, Metoprolol tartrate 12.5 mg BID - failed sotalol, on amiodarone (d/c 2/2 toxicity), significant bradycardia with metoprolol succinate Mechanical Aortic Valve: warfarin Moderate MR: TTE 10/2021 Coronary artery Calcification Hyperlipidemia VAZQUEZ: on CPAP RMCA saccular aneurysm Interval History Since she was last seen she states she is doing well. Patient denies any chest pain, shortness of breath, dyspnea on exertion, pnd, orthopnea, lower extremity edema,decreased appetite, palpitations, light headedness, dizziness, syncope. Has stable fatigue. No issues with her medication. History Ms. Radha Huynh is a 77-year-old female Last visit with SANIA GOMEZ in Cardiology was on: 10/03/[address] [facility]. Patient was previously following with Dr. Ordoñez. She wishes to transfer care. Valve replaced at [facility] in [place]. She is unsure what year. States overall she is doing well. Patient denies any chest pain, shortness of breath, orthopnea, lower extremity edema, fatigue,decreased appetite, palpitations, light headedness, dizziness, syncope. She has stable TORRES. Her physical activity is mostly limited byback pain (states she has a broken back). 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 08/17/20 [facility] albuterol sulfate HFA 108 (90 Base) MCG/ACT inhaler INHALE 2 PUFFS BY MOUTH EVERY 6 HOURS NEEDEDFOR WHEEZING 11/19/22 Sanjeev Webster DO ALPRAZolam (XANAX) 0.5 MG tablet TAKE 1/2 (ONE-HALF) TABLET BY MOUTH NIGHTLY NEEDED FOR SLEEP 02/25/23 Sanjeev Webster DO Blood Glucose Monitoring Suppl (ONE TOUCH ULTRA 2) w/Device Kit 1 Device by Does not apply route daily. 12/26/22 Sanjeev Webster DO Cholecalciferol (VITAMIN D3) 25 MCG (1000 UT) Cap Take 1,000 Units by mouth daily. Doc [facility] dulaglutide (TRULICITY) 1.5 MG/0.5ML injection Inject 1.5 mg into the skin once a week. Indications: Diabetes 01/12/23 Sanjeev Webster DO furosemide (LASIX) 20 MG tablet Take 1 tablet (20 mg total) by mouth daily. 10/08/22 Sanjeev Webster DO furosemide (LASIX) 80 MG tablet Take 0.5 tablets (40 mg total) by mouth daily. Patient taking differently: Alternate 20 mg and 40 mg of furosemide on alternating days. 08/29/22 Lina Hurley NP gabapentin (NEURONTIN) 300 MG capsule Take 1 capsule (300 mg total) by mouth 3 (three) times daily.05/20/22 Sanjeev Webster, DO Glucose Blood (BLOOD GLUCOSE TEST STRIPS) Strip 1 Device by Does not apply route daily. 12/26/22 Sanjeev Webster, DO HYDROcodone-acetaminophen (NORCO) 5-325 MG tablet Take 1-2 tablets by mouth every 6 (six) hours as needed for Pain. Indications: Chronic Pain 02/06/23 Sanjeev Webster, DO iron polysaccharides (NIFEREX) 150 MG capsule Take 1 capsule (150 mg total) by mouth daily. 06/03/22Sanjeev Webster, DO Lancets (ONETOUCH ULTRASOFT) lancets 1 each by Other route as needed. Use as instructed 12/26/22 Sanjeev Webster, DO methIMAzole (TAPAZOLE) 10 MG tablet Take 1 tablet (10 mg total) by mouth daily. 09/02/22 Sanjeev Webster, DO metoprolol tartrate (LOPRESSOR) 25 MG tablet Take 0.5 tablets (12.5 mg total) by mouth 2 (two) times daily. 07/31/22 Sanjeev Webster, DO omeprazole (PRILOSEC) 20 MG capsule Take 1 capsule by mouth once daily 12/16/22 Sanjeev Webster, DO potassium chloride CR (K-TAB) 10 MEQ Tab CR tablet Take 1 tablet by mouth once daily 02/25/23 Sanjeev Webster DO simvastatin (ZOCOR) 10 MG tablet Take 1 tablet (10 mg total) by mouth nightly at bedtime. 02/16/23 Sanjeev Webster DO venlafaxine XR (EFFEXOR-XR) 150 MG 24 hr capsule Take 1 capsule by mouth once daily 02/02/23 Sanjeev Webster, DO warfarin (COUMADIN) 1 MG tablet Take 2 tablets (2 mg total) by mouth see administration instructions. Thursday , Thursday and Thursday with 6mg to total 8 mg and 1 tablet daily Thursday through with 6mg tablet for a total of 7mg 12/05/22 Sanjeev Webster DO warfarin (COUMADIN) 6 MG tablet Take 1 tablet by mouth once daily 10/20/22 Sanjeev Webster DO Review of patient's allergies indicates: Allergen Reactions Atorvastatin Leg Pain Leg pain/cramps. Resolved after stopping. Tape Contact Dermatitis Bacitracin Other (see comment) Benzalkonium Other (see comment) Gramicidin Other (see comment) Hydrocortisone Other (see comment) Neomycin Other (see comment) Polymyxin B Other (see comment) Rosuvastatin Leg Pain Cramping in legs Review of Systems: A 14 point ROS was completed and was negative except as per HPI. Physical Exam There were no vitals filed for this visit. There is no height or weight on file to calculate BMI. Tele visit Diagnostic Data Lab Results Component Value Date/Time WBC 6.82 09/10/2022 11:36 AM HGB 11.8 (L) 09/10/2022 11:36 AM HCT 38.1 09/10/2022 11:36 AM PLT 294 09/10/2022 11:36 AM NA 138 09/10/2022 11:36 AM CL 104 09/10/2022 11:36 AM K 4.7 09/10/2022 11:36 AM GLU 88 09/10/2022 11:36 AM BUN 24 (H) 09/10/2022 11:36 AM CR 1.39 (H) 09/10/2022 11:36 AM CA 10.8 (H) 09/10/2022 11:36 AM MAGNESIUM 1.9 08/26/2022 04:21 PM AST 18 08/26/2022 04:21 PM ALT 16 08/26/2022 04:21 PM ALB 3.3 (L) 08/26/2022 04:21 PM Lab Results Component Value Date CHOL 200 (H) 08/29/2021 TRI 108 08/29/2021 HDL 71 08/29/2021 HGBA1C 6.2 01/12/2023 TSH 1.277 08/26/2022 No results for input(s): TROP , TROPIWB [...] PV 3.53m/s, MG 31mmHG, YADIRA 1.10 - continue warfarin, INR goal 2.5-3.5 - lifelong dental ppx - annual TTE (ordered lst visit)-- not completed, recommend completing #Paroxysmal A. 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 c/b RV dysfunction and PH - TTE 10/2021: LVEF 40-45%, moderate RV dysfunction, RVSP 40-50 mmHG - continue lasix 20/40 QOD, Kchlor 10 meq QD - not on GDMT 2/2 orthostatic hypotension, continue metoprolol tartrate 12.5 mg BID #Moderate MR: TTE 10/2021 #Hypertension: c/b orthostatic hypotension - continue metoprolol tartrate 12.5 mg BID #Coronary Artery Calcification -Reg Spect 10/2021: negative for ischemia/infarction #Hyperlipidemia: goal LDL <70 08/29/2021 3:17 PM LIPID PANEL FLOWSHEET CHOLESTEROL 200 TRIGLYCERIDES 108 HDL 71 NON HDL CHOLESTEROL 129 09/2022: TG 149, LDL 178 - statin intolerance - recommend zetia 10 mg QD (She would like to think about it) - repeat lipid panel:annually #VAZQUEZ on CPAP #Health Maintenance Screening: - BMI: There is no height or weight on file to calculate BMI. Recommend lifestyle modifications including diet (calorie deficit, low saturated/trans fat, low sodium) and exercise (150 minutes of moderate intensity/week) - AAA screening: N/A - PAD: denies symptoms Follow-Up: 6 months Thank you for allowing me to participate in the care of this patient. Please reach out with any questions. Sania Gomez MD I introduced and identified myself, received verbal consent from the patient to proceed with this video visit and made the patient aware that the same confidentiality and information assurance engineer practices apply. The patient joined the video visit from Home. I completed the virtual visit from Office. The following clinical staff helped with this visit MA: . Total Time Spent in Minutes: 30 Portions of this note were dictated using Watchup speech recognition software. Occasional wrong wordor sound-alike substitutions may have occurred due to the inherent limitations of voice recognition software. Please read the chart carefully and recognize, using context, where the substitutions may have occurred. ORMANCE TEST ARCHITECT documented in this encounter Plan of Treatment Upcoming Encounters Date Type Department Care Team (Late st Contact Info) Description 04/14/2024 2:00 PM PERFORMANCE TEST ARCHITECT Office Visit [facility] Multispecialty Care - [facility] [address] [facility], [address] [place] [id number] Julio Pulido MD [address] [place] [id number] documented as of this encounter Goals Goal Patient Goal Type Associated Problems Recent Progress Patient-Stated? Author Health - patient able to perform ADLs independently General On track(2023 9:49 AM CDT) Dianne Corona RN Note: 12/17/23: Patient stated she is independent with ASL's. Establish Plan for Symptom Monitoring-CHF General On track(2023 11:36 AM PERFORMANCE TEST ARCHITECT) Dianne Corona RN Note: Patient will [...] Symptom Monitoring-COPD General On track(2023 11:36 AM PERFORMANCE TEST ARCHITECT) Dianne Corona RN Note: Patient will [...] Symptom Monitoring-DM General On track(2023 4:33 PM PERFORMANCE TEST ARCHITECT) Dianne Corona RN Note: Patient will manage [...] Symptom Monitoring-HTN General On track(2023 4:33 PM PERFORMANCE TEST ARCHITECT) Dianne Corona RN Note: Patient will monitor B/P several times per week , record readings and report to physician or CC if B/P consistently >130/80 Take your medications as prescribed. Follow up with your provider as scheduled. Take your blood pressure at least several times a week if able. documented as of this encounter Visit Diagnoses Diagnosis Paroxysmal atrial fibrillation ([facility])- Primary Atrial fibrillation H/O mechanical aortic valve replacement Heart valve replaced by other means Hyperlipidemia, unspecified hyperlipidemia type Statin intolerance Other drug allergy documented in this encounter Additional Health Concerns Assessment Noted Time PHQ-9 Depression Total Score: 13 023 3:56 PM CDT documented as of this encounter Care Teams Movie Producer Relationship Specialty Start Date End Date Sanjeev Webster DO [address] [place] [address] PCP - General FAMILY PRACTICE 09/25/20 Dianne Johnson, RN [address] [place] [address] Green Pipefitter (Ambulatory) REGISTERED NURSE 08/14/20 documented as of this encounter
--- OUTSIDE RECORDS SUMMARY | 2024-03-15 00:56 | XMS_ITS | Encounter Summary ---
Author Organization [facility] Address [address] [facility] [place] [address] [place] [address] Care Team Providers Care Flosser Name Role Phone Dianne Johnson RN Unavailable [phone] Sanjeev Webster DO Primary Care Provider + Reason for Visit * Reason Onset Date Comments Care Management 03/13/2023 [facility] call to the patient. Encounter Details Date Type Department Care Team (Late st Contact Info) Description 03/13/2023 Patient Outreach [facility] Family & Internal Medicine [address] [phone] Stu Ruiz RN [address] [place] [address] Care Management ([facility] call to the patient. ) Social History Tobacco Use Types Packs/Day [...] often do you attend chur ch or adventist services? More than 4 times [...] Recorded Patient Health Questionnaire-2 Score 6 12/11/2022 [facility] Occupational Stress Questionnaire Answer Date [...] documented in this encounter Progress Notes * Stu Ruiz RN - 03/13/2023 9:08 AM CST Chronic Care Management: Patient concerns or urgent matters that need addressed: no Patient Status: Patient still has cough and runny nose, but reports it is a little better. Her phlegm and nasal excretions are green. She is taking the antibiotic, prednisone and the benzonatate as directed from her appt with PCP on 03/11/23. Her B/P was 132/88 and weight= 174# that day. reminded her of her PCP appt on 03/16/23 and instructed her to keep this appt in case she is not improving and she vu. Patient is afebrile now. Her appetite isn't the best, so CC instructed her to eat something healthy every 2 hours, so she gets her nutrition and she vu. No issues with bowels or urination. Her glucometer isn't working and she thinks she needs new batteries, but reports her FBS has been under 200 and she denies any s/s of hypoglycemia. She reports only a little SOB and no edema present. Patient denies any urgent needs or concerns at this time and thanked CC for calling. Plan of Care: Weekly to monthly calls to check on the status of chronic conditions and educate on disease processes when needed. Patient Goals: Goals Addressed This Visit's Progress [...] able to perform ADLs independently On track 09/24/22: Independent with ADL's. Upcoming Visit Appointments: Future Appointments Date Time Provider Department Center 03/16/2023 10:40 AM Sanjeev Webster DO [id number] 04/07/2023 2:[address] [facility] 04/09/2023 1:40 PM MD NALINI Gutierrez [facility] 04/10/2023 1:00 PM ALEX ECHO 1 [facility] 04/14/2023 3:00 PM ALEX MRI [facility] 04/14/2023 4:00 PM ALEX MRI [facility] ALEX 09/04/2023 1:00 PM Sania Gomez MD [facility] Quality care gaps: Health [...] test Chronic anticoagulation Coronary artery disease involving [place] coronary artery of [place] heart without angina pectoris Dyspnea on exertion H/O mechanical aortic valve replacement Hypertensive heart disease with congestive heart failure (HHS/HCC) ([facility]) LBBB (left bundle branch block) Myopathy VAZQUEZ (obstructive sleep apnea) Paroxysmal atrial flutter ([facility]/HCC) ([facility]) Benign hypertension with CKD (chronic kidney disease) stage III ([facility]/HCC) Memory deficits Hearing deficit, bilateral History of cataract extraction, unspecified laterality Vitamin D deficiency Hypercalcemia Chronic frontal sinusitis Constipation, unspecified constipation type Chronic bilateral low back pain without sciatica Iron deficiency anemia, unspecified iron deficiency anemia type Disorder of skin of trunk Anemia Body mass index (BMI) 31.0-31.9, adult 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[facility]/HCC) Benign hypertension with stage 3b chronic kidney [...] illness Requires lifelong warfarin therapy Secondary hyperparathyroidism ([facility]) ([facility]) Presence of prosthetic heart valve Plantar fascial fibromatosis Peripheral neuropathy Parathyroid adenoma Polymyalgia rheumatica ([facility]) ([facility]) Osteoporosis Numbness Muscle cramps Closed stable burst fracture of sixth thoracic vertebra, initial encounter ([facility]) ([facility]) Chest pain Contusion of scalp Knee pain Localized, primary osteoarthritis Osteoarthritis of knee Traumatic closed displaced fracture of distal end of radius Shoulder joint pain Hyperlipidemia associated with type 2 diabetes mellitus ([facility]) ([facility]) PVD (peripheral vascular disease) ([facility]) Hematoma Anxiety Diastolic heart failure ([facility]) ([facility]) Internal hemorrhoids Leukoencephalopathy Major depression single episode, in partial remission ([facility]) Metacarpal bone fracture Mitral valve disorder Peripheral arterial occlusive disease ([facility]) Primary osteoarthritis involving multiple joints Vision loss COPD (chronic obstructive pulmonary disease) ([facility]) ([facility]) Diarrhea Drug-induced constipation H/O mechanical aortic valve replacement Age-related osteoporosis with current pathological fracture Care Management Physical deconditioning Chronic heart failure with preserved ejection fraction (HFpEF) ([facility]) ([facility]) Paroxysmal atrial fibrillation ([facility]) ([facility]) Hypertension associated with type 2 diabetes mellitus ([facility]) ([facility]) Encounter for prophylactic measures, unspecified Graves' disease Cirrhosis of liver without ascites, unspecified hepatic cirrhosis type ([facility]) ([facility]) Stage 3b chronic kidney disease ([facility]) OLIVE (acute kidney injury) ([facility]) Heart failure with mildly reduced ejection fraction (HFmrEF) ([facility]) ([facility]) Medications: Current Outpatient Medications Medication Sig Dispense [...] 6 Time spent performing chart review (minutes): 5 Total time (minutes): 11 STU RUIZ RN I reviewed the patient's status and education provided by STU RUIZ RN. I agree with the findings and recommendations made. Cosigned by Sanjeev Webster DO at 03/13/2023 4:16 PM MANAGER LOCATION GER LOCATION GER LOCATION documented in this encounter Plan of Treatment Upcoming Encounters Date Type Department Care Team (Late st Contact Info) Description 04/14/2024 2:00 PM MANAGER LOCATION Office Visit [facility] [address] [facility], [address] [place] [address] Julio Pulido MD [address] [place] [address] documented as of this encounter Goals Goal Patient Goal Type Associated Problems Recent Progress Patient-Stated? Author Health - patient able to perform ADLs independently General On track(2023 9:49 AM CDT) Dianne Corona RN Note: 12/17/23: Patient stated she is independent with ASL's. Establish Plan for Symptom Monitoring-CHF General On track(2023 11:36 AM MANAGER LOCATION) Dianne Corona RN Note: Patient will recognize [...] Monitoring-COPD General On track(2023 11:36 AM MANAGER LOCATION) Dianne Corona RN Note: Patient will recognize [...] Monitoring-DM General On track(2023 4:33 PM MANAGER LOCATION) Dianne Corona RN Note: Patient will manage [...] Monitoring-HTN General On track(2023 4:33 PM MANAGER LOCATION) No Dianne Johnson, RN Note: Patient will [...] Chronic obstructive pulmonary disease, unspecified COPD type ([facility])- Primary Type 2 diabetes mellitus with stage 3b chronic kidney disease, without long-term current use of insulin ([facility]) Chronic heart failure with preserved ejection fraction (HFpEF) ([facility]) documented in this encounter Additional Health Concerns Assessment Noted Time PHQ-9 Depression Total Score: 13 023 3:56 PM CDT documented as of this encounter Care Teams Flosser Relationship Specialty Start Date End Date Sanjeev Webster DO [address] [place] [id number] PCP - General FAMILY PRACTICE 09/25/20 Dianne Johnson, RN [address] [place] [address] Certified Orthotist (Ambulatory) REGISTERED NURSE 08/14/20 documented as of this encounter
--- OUTSIDE RECORDS SUMMARY | 2024-03-15 00:56 | XMS_ITS | Encounter Summary ---
Author Organization [facility] Address Critical access hospital6 [facility] [place] [address] [place] [address] Care Team Providers Care Branch Credit Counselor Name Role Phone Dianne Johnson RN Unavailable [phone] Sanjeev Webster DO Primary Care Provider + Encounter Details Date Type Department Care Team (Latest Contact Info) Description 03/18/2023 Travel Social History Tobacco Use Types Packs/Day [...] Score 6 12/11/2022 [facility] [...] Contact Info) Description 04/14/2024 2:00 PM RAILROAD REPAIRER Office Visit [facility] Multispecialty Care - [facility] 3 [facility], [address] [place] [address] Julio Pulido MD 3 [place] [address] documented as of this encounter Goals Goal Patient Goal Type Associated Problems Recent Progress Patient-Stated? Author Health - patient able to perform ADLs independently General On track(2023 9:49 AM CDT) Dianne Corona RN Note: 12/17/23: Patient stated she is independent with ASL's. Establish Plan for Symptom Monitoring-CHF General On track(2023 11:36 AM RAILROAD REPAIRER) Dianne Corona RN Note: Patient will [...] Monitoring-COPD General On track(2023 11:36 AM RAILROAD REPAIRER) Dianne Corona RN Note: Patient will [...] Monitoring-DM General On track(2023 4:33 PM RAILROAD REPAIRER) Dianne Corona RN Note: Patient will [...] Monitoring-HTN General On track(2023 4:33 PM RAILROAD REPAIRER) Dianne Corona, RN Note: Patient will [...] documented as of this encounter Care Teams Branch Credit Counselor Relationship Specialty Start Date End Date Sanjeev Webster DO [address] [place] [id number] PCP - General FAMILY PRACTICE 09/25/20 Dianne Johnson, RN [address] [place] [address] Cleaner Housekeeping (Ambulatory) REGISTERED NURSE 08/14/20 documented as of this encounter
--- OUTSIDE RECORDS SUMMARY | 2024-03-15 00:57 | XMS_ITS | Encounter Summary ---
Author Organization [facility] Address [facility]6 [facility] [place], [place] [address] [place] [address] Care Team Providers Care Dependency Program Director Name Role Phone Dianne Johnson RN Unavailable [phone] Sanjeev Webster DO Primary Care Provider + Reason for Visit * Reason Onset Date Comments Error 11/24/2022 Encounter Details Date Type Department Care Team (Late st Contact Info) Description 11/24/2022 Telephone [facility] Family & Internal Medicine [id number] [place] [address] Sanjeev Webster DO [facility] [place] [address] Error Social History Tobacco Use [...] Answer Date Recorded Patient Health Questionnaire-2 Score 3 07/08/2022 [facility] [...] st Contact Info) Description 04/14/2024 2:00 PM MOLD DUMPER Office Visit [facility] Multispecialty Care - [facility] 3 [facility], [address] [place] [id number] Julio Pulido MD 3 [place] [address] documented as of this encounter Goals Goal Patient Goal Type Associated Problems Recent Progress Patient-Stated? Author Health - patient able to perform ADLs independently General On track(2023 9:49 AM CDT) Dianne Corona RN Note: 12/17/23: Patient stated she is independent with ASL's. Establish Plan for Symptom Monitoring-CHF General On track(2023 11:36 AM MOLD DUMPER) Dianne Corona RN Note: Patient will recognize [...] Symptom Monitoring-COPD General On track(2023 11:36 AM MOLD DUMPER) Dianne Corona RN Note: Patient will recognize [...] Symptom Monitoring-DM General On track(2023 4:33 PM MOLD DUMPER) Dianne Corona RN Note: Patient will manage [...] Symptom Monitoring-HTN General On track(2023 4:33 PM MOLD DUMPER) Dianne Corona RN Note: Patient will monitor [...] Assessment Noted Time PHQ-9 Depression Total Score: 3 12/24/19 22 11:48 AM CDT documented as of this encounter Care Teams Dependency Program Director Relationship Specialty Start Date End Date Sanjeev Webster DO [address] [place] [address] PCP - General FAMILY PRACTICE 09/25/20 Dianne Johnson, RN [address] [place] [address] Grit Removal Operator (Ambulatory) REGISTERED NURSE 08/14/20 documented as of this encounter
--- OUTSIDE RECORDS SUMMARY | 2024-03-15 00:57 | XMS_ITS | Encounter Summary ---
Author Organization [facility] Address [facility]6 [facility] [place] [address] [place] [address] Care Team Providers Care Hospice Clinical Marketer Name Role Phone Dianne Johnson RN Unavailable [phone] Sanjeev Webster DO Primary Care Provider + Reason for Visit * Reason Comments Anticoagulation Encounter Details Date Type Department Care Team (Late st Contact Info) Description 12/04/2022 1:20 PM CDT Allied Health/Nurse Visit [facility] Medical [facility] Family & Internal Medicine [address] [address] Sanjeev Webster DO [facility] [place] [address] Anticoagulation Social History Tobacco Use [...] Recorded Patient Health Questionnaire-2 Score 3 07/08/2022 [facility] Occupat ional [...] st Contact Info) Description 04/14/2024 2:00 PM WASH CREW PERSON Office Visit [facility] Medical Group Multispecialty Care - [facility] 3 [facility], [address] [place] [phone] Julio Pulido MD 3 [place] [address] documented as of this encounter Goals Goal Patient Goal Type Associated Problems Recent Progress Patient-Stated? Author Health - patient able to perform ADLs independently General On track(2023 9:49 AM CDT) Dianne Corona RN Note: 12/17/23: Patient stated she is independent with ASL's. Establish Plan for Symptom Monitoring-CHF General On track(2023 11:36 AM WASH CREW PERSON) Dianne Corona RN Note: Patient will recognize [...] Symptom Monitoring-COPD General On track(2023 11:36 AM WASH CREW PERSON) Dianne Corona RN Note: Patient will recognize [...] Symptom Monitoring-DM General On track(2023 4:33 PM WASH CREW PERSON) Dianne Corona RN Note: Patient will manage [...] Symptom Monitoring-HTN General On track(2023 4:33 PM WASH CREW PERSON) Dianne Corona RN Note: Patient will monitor [...] Associated Diagnosis Comments PROTHROMBIN TIME, FINGERSTICK Routine 12/04/2022 Current use of anticoagulant therapy COLLECT.CAPILLARY (FNGR,HEEL,EAR) Routine 12/04/2022 Current use of anticoagulant therapy documented in this encounter Results * COLLECT.CAPILLARY (FNGR,HEEL,EAR) (12/04/2022) us Sanjeev Webster DO PROCEDURES-UNRESULTED Fi nal Result * PROTIME/INR, FINGERSTICK (12/04/2022) INR WHOLE BLOOD 2.30 MG-S [facility] 12/04/2022 us Sanjeev Webster DO LABORATORY Final Re sult [address] [address], documented in this encounter Visit Diagnoses Diagnosis Current use of anticoagulant therapy- Primary documented in this encounter Additional Health Concerns Assessment Noted Time PHQ-9 Depression Total Score: 3 12/24/19 22 11:48 AM CDT documented as of this encounter Care Teams Hospice Clinical Marketer Relationship Specialty Start Date End Date Sanjeev Webster DO [address] [place] [address] PCP - General FAMILY PRACTICE 09/25/20 Dianne Johnson, RN [address] [place] [address] Fried Cake Maker (Ambulatory) REGISTERED NURSE 08/14/20 documented as of this encounter
--- OUTSIDE RECORDS SUMMARY | 2024-03-15 00:57 | XMS_ITS | Encounter Summary ---
Author Organization [facility] Address [facility]6 [facility] [place] [address] [place] [address] Care Team Providers Care Shellfish Harvester Name Role Phone Dianne Johnson RN Unavailable [phone] Sanjeev Webster DO Primary Care Provider + Reason for Visit * Reason Onset Date Comments Follow Up Call 12/24/2022 Encounter Details Date Type Department Care Team (Late st Contact Info) Description 12/24/2022 Telephone [facility] Family & Internal Medicine [address] [place] [address] Sanjeev Webster DO [address] [place] [address] Follow Up Call Social History [...] Progress Notes * Yenifer Wolf MA - 12/26/2022 2:31 PM CDTAddended by: YENIFER WOLF on: 12/26/2022 02:31 PM Modules accepted: Orders * Yenifer Wolf MA - 12/26/2022 2:31 PM CDT RX sent * Sanjeev Webster DO - 12/24/2022 3:19 PM CDT Fine to order for daily checks. * Yenifer Wolf MA - 12/24/2022 2:32 PM CDT Ok to order? * Dianne Johnson RN - 12/24/2022 11:44 AM CDT Patient doesn't have glucose machine and will need one sent to [facility] in [place] if wants her to check her BS. documented in this encounter Plan of Treatment Upcoming Encounters Date Type Department Care Team (Late st Contact Info) Description 04/14/2024 2:00 PM SURVEY WORKERS SUPERVISOR Office Visit [facility] Multispecialty Care - [facility] 3 [facility], [address] [place] [address] Julio Pulido MD 3 [place] [address] documented as of this encounter Goals Goal Patient Goal Type Associated Problems Recent Progress Patient-Stated? Author Health - patient able to perform ADLs independently General On track(2023 9:49 AM CDT) Dianne Corona RN Note: 12/17/23: Patient stated she is independent with ASL's. Establish Plan for Symptom Monitoring-CHF General On track(2023 11:36 AM SURVEY WORKERS SUPERVISOR) Dianne Corona RN Note: Patient will [...] Symptom Monitoring-COPD General On track(2023 11:36 AM SURVEY WORKERS SUPERVISOR) Dianne Corona RN Note: Patient will [...] Symptom Monitoring-DM General On track(2023 4:33 PM SURVEY WORKERS SUPERVISOR) Dianne Corona RN Note: Patient will [...] Symptom Monitoring-HTN General On track(2023 4:33 PM SURVEY WORKERS SUPERVISOR) Dianne Corona RN Note: Patient will [...] long-term current use of insulin ([facility])- Primary documented in this encounter Additional Health Concerns Assessment Noted Time PHQ-9 Depression Total Score: 13 023 3:56 PM CDT documented as of this encounter Care Teams Shellfish Harvester Relationship Specialty Start Date End Date Sanjeev Webster DO [address] [place] [id number] PCP - General FAMILY PRACTICE 09/25/20 Dianne Johnson, RN [address] [place] [address] Student Success Coach (Ambulatory) REGISTERED NURSE 08/14/20 documented as of this encounter
--- OUTSIDE RECORDS SUMMARY | 2024-03-15 00:57 | XMS_ITS | Encounter Summary ---
Author Organization [facility] Address [facility]6 [facility]. [place], [place] [address] [place] [address] Care Team Providers Care Coach Operator Name Role Phone Dianne Johnson RN Unavailable [phone] Sanjeev Webster DO Primary Care Provider + Reason for Visit * Reason Onset Date Comments Question 12/19/2022 Encounter Details Date Type Department Care Team (Late st Contact Info) Description 12/19/2022 Telephone [facility] Family & Internal Medicine [id number] [place] [address] Sanjeev Webster DO [address] [place] [address] Question Social History Tobacco Use [...] Progress Notes * Latha Ring MA - 12/19/2022 4:30 PM CDT Izzy informed and v/u. Of information. * Sanjeev Webster DO - 12/19/2022 4:15 PM CDT We will check it at her next OV on 01/12/23. * Latha Ring MA - 12/19/2022 3:11 PM CDT Izzy informed and v/u. She is wondering when you wanted to recheck Radha's INR? * Sanjeev Webster DO - 12/19/2022 2:20 PM CDT Please let pt's granddaughter know we are sending out a once a week injeciton Trulicity for her diabetes. We did not change her warfarin dose today as her PT/INR was stable. She can use Glyoxide (OTC) for her mouth sore. documented in this encounter Plan of Treatment Upcoming Encounters Date Type Department Care Team (Late st Contact Info) Description 04/14/2024 2:00 PM CADD TECHNICIAN Office Visit [facility] Medical [facility] Multispecialty Care [facility] 3 [facility], [address] [place] [phone] Julio Pulido MD 3 [place] [address] documented as of this encounter Goals Goal Patient Goal Type Associated Problems Recent Progress Patient-Stated? Author Health - patient able to perform ADLs independently General On track(2023 9:49 AM CDT) Dianne Corona RN Note: 12/17/23: Patient stated she is independent with ASL's. Establish Plan for Symptom Monitoring-CHF General On track(2023 11:36 AM CADD TECHNICIAN) Dianne Corona RN Note: Patient will [...] Symptom Monitoring-COPD General On track(2023 11:36 AM CADD TECHNICIAN) Dianne Corona RN Note: Patient will [...] Symptom Monitoring-DM General On track(2023 4:33 PM CADD TECHNICIAN) No Johnson, Dianne R, RN Note: Patient [...] Symptom Monitoring-HTN General On track(2023 4:33 PM CADD TECHNICIAN) No Dianne Johnson RN Note: Patient [...] documented as of this encounter Care Teams Coach Operator Relationship Specialty Start Date End Date Sanjeev Webster DO [address] [place] [address] PCP - General FAMILY PRACTICE 09/25/20 Dianne Johnson, RN [address] [place] [address] Ambulette Driver (Ambulatory) REGISTERED NURSE 08/14/20 documented as of this encounter
--- OUTSIDE RECORDS SUMMARY | 2024-03-15 00:57 | XMS_ITS | Encounter Summary ---
Author Organization [facility] Address [facility]. [place], [place] [address] [place] [address] Care Team Providers Care Side Puller Name Role Phone Dianne Johnson RN Unavailable [phone] Sanjeev Webster DO Primary Care Provider + Reason for Referral * Consultation (Routine) - Closed Specialty Diagnoses / Procedures Referred By Contivett t Referred To Contact ENDOCRINOLOGY Diagnoses Secondary hyperparathyroidism ([facility]/HCC HHS/HCC) Hyperthyroidism Procedures OFFICE/OUTPATIENT NEW LOW MDM 30-44 MINUTES OFFICE/OUTPT VISIT,NEW,LEVL IV OFFICE/OUTPT VISIT,NEW,LEVL V OFFICE/OUTPT VISIT,EST,LEVL III OFFICE/OUTPT VISIT,EST,LEVL IV OFFICE/OUTPT VISIT,EST,LEVL V Sanjeev Webster DO [address] [place] [address] Phone: tel: fax: Trent Mattson MD Phone: tel: fax: Referral ID Status Reason Start Date Expiration Date Visits Re quested Visits Authorized [id number] Closed 04/22/2023 11/07/2023 6 6 Reason for Visit * Reason Comments Depression Patient states she b elieves the shingles vaccine may have caused her to become depression. She is experiencing fatigue, antisocial behavior, and not wanting to do anything Fall Patient fell out of recliner yesterday and has multiple skin tears on B/L forearms Mouth Sores Patient has a mouth sore on bottom gums causing ear pain. Encounter Details Date Type Department Care Team (Late st Contact Info) Description 12/19/2022 1:20 PM CDT Office Visit [facility] Family & Internal Medicine [address] [address] Sanjeev Webster, DO [address] [place] [phone] Depression (Patient states she believes the shingles vaccine may have caused her to become depression. She is experiencing fatigue, antisocial behavior, and not wanting to do anything); Fall (Patient fell out of recliner yesterday and has multiple skin tears on B/L forearms); Mouth Sores (Patient has a mouth sore on bottom gums causing ear pain. ) Social History Tobacco Use Types [...] Sign Reading Time Taken Comments Blood Pressure 116/70 12/19/2022 2:09 PM CDT Pulse 66 12/19/2022 1:20 PM CDT Temperature 36.4 ??C (97.5 ??F) 12/19/2022 1:20 PM CD T Respiratory Rate 20 12/19/2022 1:20 PM CDT Oxygen Saturation 98% 12/19/2022 1:20 PM CDT Inhaled Oxygen Concentration - - Weight 84.6 kg (186 lb 9.6 oz) 12/19/2022 1:20 P M CDT Height 165.1 cm (5' 5 ) 12/19/2022 1:20 PM CDT Body Mass Index 31.05 12/19/2022 1:20 PM CDT documented in this encounter Functional [...] Progress Notes * Sanjeev Webster, DO - 12/19/2022 1:20 PM CDT Images from the original note were not included. GENERAL OFFICE VISIT Encounter Date: 12/19/2022 Chief Complaint: 77-year-old female presents for Depression (Patient states she believes the shingles vaccine may have caused her to become depression. She is experiencing fatigue, antisocial behavior, and not wanting to do anything), Fall (Patient fell out of recliner yesterday and has multiple skin tears on B/L forearms), and Mouth Sores (Patient has a mouth sore on bottom gums causing ear pain. ) HPI: Pt presents for multiple complaints. Patient presents for major depressive disorder. Pt has had this for multiple years. Concurrent psychiatric conditions include anxiety. Pt is currently taking venlafaxine and Xanax prn. Pt does not see counseling. Pt has noted that many of her symptoms worsened acutely after her shingles vaccine, specifically fatigue, antisocial behavior, sleeping excessively, and lack of desire to do things. She notes she has slowly improved given distance since then. Patient would like to continue current medications as prescribed. Pt had a fall yesterday. She fell out of her recliner. She was trying to help her dog onto her lap and the chair pushed her out of it. She has multiple skin tears on her arms. She also tripped over her vacuum cart. Pt has hyperthyroidism. Patient is currently on methimazole. She is following with endocrine Dr. Moreno, but she has not followed up as recommended with them. She will need to see a new forest aide as Dr. Moreno will no longer be practicing. Her last labs were stable on 08/26/22. She has has previous ultrasound from 2021 that showed chronic thyroiditis. Patient has elevated thyroid peroxidase antibodies from labs on 01/13/22. Pt's TSI was also elevated. Pt has been on methimazole since August 2021. Pt has a mouth sore after eating a corn chip on her right cheek that causes pain up to her ear. Sheis asking for me to evaluate this. No other related symptoms. Patient has Type 2 Diabetes. Patient has had diabetes for multiple years. Medications include none specifically for lowering blood sugars. Pt would like to try a GLP-1. BS logs range: doesn't check. Patient's weight has not changed. Pt has neuropathy and PAD, both of which are stable. Pt is on gabapentin for neuropathy. No claudication at this time. Review of Systems Constitutional: Negative for fever. HENT: See HPI Musculoskeletal: See HPI Neurological: See HPI Psychiatric/Behavioral: See HPI Patient Active Problem List Diagnosis Abnormal stress test Chronic anticoagulation Coronary artery disease involving [place] coronary artery of [place] heart without angina pectoris Dyspnea on exertion H/O mechanical aortic valve replacement Hypertensive heart disease with congestive heart failure ([facility]/HCC) ([facility]/HCC) LBBB (left bundle branch block) Myopathy VAZQUEZ (obstructive sleep apnea) Paroxysmal atrial flutter ([facility]/HCC) ([facility]) Benign hypertension with CKD (chronic kidney disease) stage III ([facility]) Memory deficits Hearing deficit, bilateral History of cataract extraction, unspecified laterality Vitamin D deficiency Hypercalcemia Chronic frontal sinusitis Constipation, unspecified constipation type Chronic bilateral low back pain without sciatica Iron deficiency anemia, unspecified iron deficiency anemia type Disorder of skin of trunk Anemia Body mass index (BMI) 31.0-31.9, adult 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) Benign hypertension with stage 3b chronic kidney disease (CMS/HCC) Cobalamin deficiency Compression fracture of thoracic vertebra (HHS/HCC) (CMS/HCC) Depression Diabetic polyneuropathy (HHS/HCC) (CMS/HCC) Disorder of rotator cuff Diverticular disease Dysphagia Elevated troponin Gastroesophageal reflux disease without esophagitis Hyperlipidemia, unspecified hyperlipidemia type Vascular dementia ([facility]) Unknown and unspecified causes of morbidity Syncope, unspecified syncope type Senile purpura ([facility]) Wrist joint pain Respiratory illness Requires lifelong warfarin therapy Secondary hyperparathyroidism ([facility]/HCC) ([facility]) Presence of prosthetic heart valve Plantar fascial fibromatosis Peripheral neuropathy Parathyroid adenoma Polymyalgia rheumatica ([facility]/HCC) ([facility]) Osteoporosis Numbness Muscle cramps Closed stable burst fracture of sixth thoracic vertebra, initial encounter ([facility]) ([facility]) Chest pain Contusion of scalp Knee pain Localized, primary osteoarthritis Osteoarthritis of knee Traumatic closed displaced fracture of distal end of radius Shoulder joint pain Hyperlipidemia associated with type 2 diabetes mellitus ([facility]/HCC) ([facility]) PVD (peripheral vascular disease) ([facility]) Hematoma Anxiety Diastolic heart failure ([facility]) ([facility]) Internal hemorrhoids Leukoencephalopathy Major depression single episode, in partial remission ([facility]) Metacarpal bone fracture Mitral valve disorder Purpura ([facility]) Peripheral arterial occlusive disease ([facility]) Primary osteoarthritis involving multiple joints Vision loss COPD (chronic obstructive pulmonary disease) ([facility]) ([facility]) Diarrhea Drug-induced constipation H/O mechanical aortic valve replacement Age-related osteoporosis with current pathological fracture Care Management Physical deconditioning Chronic heart failure with preserved ejection fraction (HFpEF) ([facility]/HCC) ([facility]) Paroxysmal atrial fibrillation ([facility]) ([facility]) Hypertension associated with type 2 diabetes mellitus ([facility]) ([facility]) Encounter for prophylactic measures, unspecified Graves' disease Cirrhosis of liver without ascites, unspecified hepatic cirrhosis type ([facility]) ([facility]) Stage 3b chronic kidney disease ([facility]) OLIVE (acute kidney injury) ([facility]) 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 Anxiety Atrial fibrillation with rapid ventricular response ([facility]/HCC) ([facility]) 08/22/2020 Atrial flutter ([facility]/HCC) ([facility]) Cataract Chronic anticoagulation due to mechanical heart valve Chronic pain Diabetes mellitus ([facility]/HCC) ([facility]) H/O mechanical aortic valve replacement 2003 [...] of Health Financial Resource Strain: High Risk Difficulty of Paying Living Expenses: Hard Food Insecurity: No Food Insecurity Worried About Running Out of Food in the Last Year: Never true Ran Out of Food in the Last Year: Never true Transportation Needs: No Transportation Needs Lack of Transportation (Medical): No Lack of Transportation (Non-Medical): No Physical Activity: Insufficiently Active Days of Exercise per Week: 1 day Minutes of Exercise per Session: 10 min Stress: Stress Concern Present Feeling of Stress : To some extent Social Connections: Moderately Isolated Frequency of Communication with Friends and Family: Three times a week Frequency of Social Gatherings with Friends and Family: Three times a week Attends [employer] Services: More than 4 times per year Active Member of Clubs or Organizations: No Attends Club or Organization Meetings: Never Marital Status: Intimate Partner Violence: Not At Risk Fear of Current or Ex-Partner: No Emotionally Abused: No Physically Abused: No Sexually Abused: No Housing Stability: Low Risk Unable to Pay for Housing in the Last Year: No Number of Places Lived in the Last Year: 1 Unstable Housing in the Last Year: No Immunization History Administered Date(s) Administered Fluzone High Dose - >Age 65 (Prefilled Syringe) 12/03/2017, 12/13/2018, 02/27/2020, 12/13/2020, 12/23/2021 Influenza 02/26/2012, 12/02/2012, 11/30/2013, 12/23/2013, 12/27/2014 Influenza [...] (Generic) 06/05/2016, 09/05/2020 Tetanus/Diptheria 07/22/2014 Zoster (Zostavax) 51404 Unt/0.65Ml 12/25/2015 Current Outpatient Medications Medication Sig [...] 1,000 Units by mouth daily. dulaglutide (TRULICITY) 0.75 MG/0.5ML injection Inject 0.75 mg into the skin once a week. Indications: Diabetes 2 mL 2 furosemide (LASIX) 20 MG tablet Take 1 [...] mouth 3 (three) times daily.270 capsule 0 HYDROcodone-acetaminophen (NORCO) 5-325 MG tablet Take 1-2 tablets by mouth every 6 (six) hours as needed for Pain. Indications: Chronic Pain 60 tablet 0 iron polysaccharides (NIFEREX) 150 MG capsule Take 1 capsule (150 mg total) by mouth daily. 30 capsule 2 methIMAzole (TAPAZOLE) 10 MG tablet Take 1 [...] MG 24 hr capsule Take 1 capsule (150 mg total) by mouth daily. 90 capsule 1 warfarin (COUMADIN) 1 MG tablet Take 2 [...] Cap Take 1,000 Units by mouth daily. furosemide (LASIX) 20 MG tablet Take 1 tablet (20 mg total) by mouth daily. furosemide (LASIX) 80 MG tablet Take 0.5 tablets (40 mg total) by mouth daily. (Patient taking differently: Alternate 20 mg and 40 mg of furosemide on alternating days.) gabapentin (NEURONTIN) 300 MG capsule Take 1 capsule (300 mg total) by mouth 3 (three) times daily. iron polysaccharides (NIFEREX) 150 MG capsule Take 1 capsule (150 mg total) by mouth daily. methIMAzole (TAPAZOLE) 10 MG tablet Take 1 [...] MG 24 hr capsule Take 1 capsule (150 mg total) by mouth daily. warfarin (COUMADIN) 1 MG tablet Take 2 [...] Pain Cramping in legs Objective: Filed Vitals: 12/19/22 1320 12/19/22 1409 BP: (!) 146/80 116/70 Pulse: 66 Resp: 20 Temp: 97.5 ??F (36.4 ??C) TempSrc: Skin SpO2: 98% Weight: 84.6 kg (186 lb 9.6 oz) Height: 1.651 m (5' [...] Tenderness: There is no abdominal tenderness. Musculoskeletal: Comments: No TTP outside of skin tears on B/L UE's; NV intact Skin: Comments: Multiple skin tears on B/L UE's, no need for suture Neurological: Mental Status: She is alert. Mental status is at baseline. Psychiatric: Mood and Affect: Mood normal. Office Visit on 12/19/2022 Component Date Value Ref Range Status INR WHOLE BLOOD 12/19/2022 3.20 Final Assessment & Plan: Radha was seen today for depression, fall and mouth sores. Diagnoses and all orders for this visit: Hyperthyroidism - Ambulatory referral to Endocrinology (OTHER) Type 2 diabetes mellitus with stage 3b chronic kidney disease, without long-term current use of insulin ([facility]/HCC) ([facility]) - dulaglutide (TRULICITY) 0.75 MG/0.5ML injection; Inject 0.75 mg into the skin once a week. Indications: Diabetes Other chronic pain - HYDROcodone-acetaminophen (NORCO) 5-325 MG tablet; Take 1-2 tablets by mouth every 6 (six) hours as needed for Pain. Indications: Chronic Pain Chronic anticoagulation - PROTIME/INR, FINGERSTICK - COLLECT.CAPILLARY (FNGR,HEEL,EAR) Major depression single episode, in partial remission ([facility]) Fall, initial encounter Secondary hyperparathyroidism (HHS/HCC) ([facility]) - Ambulatory referral to Endocrinology (OTHER) Discussion/Summary: Discussed mood in detail; we will keep on same dose given improvement in symptoms and difficulty with venlafaxine changes previously attempted. Will defer Shingles vaccine repeat in the interim; consider in future. Will refer to new forest aide. Will start pt on Trulicity for T2DM; discussed side effect profile. No FH or personal history of MEN2 or medullary thyroid carcinoma. Monitor fall; recommend strategies to mitigate falls in her home. Continue warfarin at current dosing; repeat PT/INR at next OV in 2-3 weeks. Will refill hydrocodone; had to send out 5-325 due to issues with supply of 10-325. Reduce Tylenol use. Will have pt f/u in 3 weeks as scheduled. Pt v/u. I personally spent a total of 42 minutes on the day of the encounter. This includes bxea-[id number] and xzo-meic-lo-face time I provided on the day of the encounter & excludes time spent performing separately reportable services. Sanjeev Webster DO documented in this encounter Plan of Treatment Upcoming Encounters Date Type Department Care Team (Late st Contact Info) Description 04/14/2024 2:00 PM WOOD SCRAP HANDLER Office Visit [facility] Multispecialty Care - [facility] [address], [address] [place] [address] Julio Pulido MD [address] [place] [address] Scheduled Referrals Name Type Priority Associated Diagnoses Orde r Schedule Ambulatory referral to Endocrinology (OTHER) Referral Routine Secondary hyperparathyroidism ([facility]) Hyperthyroidism Ordered: 12/19/2022 documented as of this encounter Goals Goal Patient Goal Type Associated Problems Recent Progress Patient-Stated? Author Health - patient able to perform ADLs independently General On track(2023 9:49 AM CDT) Dianne Corona, RN Note: 12/17/23: Patient stated she is independent with ASL's. Establish Plan for Symptom Monitoring-CHF General On track(2023 11:36 AM WOOD SCRAP HANDLER) Dianne Corona, RN Note: Patient will recognize [...] Monitoring-COPD General On track(2023 11:36 AM WOOD SCRAP HANDLER) Dianne Corona, RN Note: Patient will recognize [...] Monitoring-DM General On track(2023 4:33 PM WOOD SCRAP HANDLER) Dianne Corona RN Note: Patient will manage [...] Monitoring-HTN General On track(2023 4:33 PM WOOD SCRAP HANDLER) Dianne Corona, DALE Note: Patient will monitor [...] Date/Time Associated Diagnosis Comments COLLECT.CAPILLARY (FNGR,HEEL,EAR) Routine 12/19/2022 2:00 PM CDT Chronic anticoagulation PROTHROMBIN TIME, FINGERSTICK Routine 12/19/2022 Chronic anticoagulation documented in this encounter Results * PROTIME/INR, FINGERSTICK (12/19/2022) INR WHOLE BLOOD 3.20 MG-[facility] 12/19/2022 us Sanjeev Webster DO LABORATORY Final Re sult -[facility] [address] [place] [address], documented in this encounter Visit Diagnoses Diagnosis Hyperthyroidism- Primary Thyrotoxicosis without mention of goiter or other cause, without mention of thyrotoxic crisis or storm Type 2 diabetes mellitus with stage 3b chronic kidney disease, without long-term current use of insulin ([facility]) Other chronic pain Chronic anticoagulation Encounter for long-term (current) use of anticoagulants Major depression single episode, in partial remission ([facility]) Major depressive disorder, single episode, in partial or unspecified remission Fall, initial encounter Secondary hyperparathyroidism ([facility]) Secondary hyperparathyroidism (of renal origin) documented in this encounter Additional Health Concerns Assessment Noted Time PHQ-9 Depression Total Score: 13 023 3:56 PM CDT documented as of this encounter Care Teams Side Puller Relationship Specialty Start Date End Date Sanjeev Webster DO [address] [place] [address] PCP - General FAMILY PRACTICE 09/25/20 Dianne Johnson, RN [facility] [place] [address] Senior Network Systems Engineer (Ambulatory) REGISTERED NURSE 08/14/20 documented as of this encounter
--- OUTSIDE RECORDS SUMMARY | 2024-03-15 00:57 | XMS_ITS | Encounter Summary ---
Author Organization [facility] Address [facility] [place] [address] [place] [address] Care Team Providers Care Geography Department Chair Name Role Phone Dianne Johnson RN Unavailable [phone] Sanjeev Webster DO Primary Care Provider + Encounter Details Date Type Department Care Team (Latest Contact Info) Description 01/12/2023 Travel Social History Tobacco Use Types Packs/Day [...] How often do you attend chur or tenriism services? More than 4 times per year [...] Recorded Patient Health Questionnaire-2 Score 6 12/11/2022 [facility] [...] st Contact Info) Description 04/14/2024 2:00 PM COIL WINDING SUPERVISOR Office Visit [facility] Multispecialty Care - [facility] [address] [facility], [address] [place] [address] Julio Pulido MD [address] [place] [address] documented as of this encounter Goals Goal Patient Goal Type Associated Problems Recent Progress Patient-Stated? Author Health - patient able to perform ADLs independently General On track(2023 9:49 AM CDT) Dianne Corona RN Note: 12/17/23: Patient stated she is independent with ASL's. Establish Plan for Symptom Monitoring-CHF General On track(2023 11:36 AM COIL WINDING SUPERVISOR) Dianne Corona RN Note: Patient will [...] Symptom Monitoring-COPD General On track(2023 11:36 AM COIL WINDING SUPERVISOR) Dianne Corona RN Note: Patient will [...] Symptom Monitoring-DM General On track(2023 4:33 PM COIL WINDING SUPERVISOR) Dianne Corona RN Note: Patient will [...] Symptom Monitoring-HTN General On track(2023 4:33 PM COIL WINDING SUPERVISOR) Dianne Corona, RN Note: Patient will [...] documented as of this encounter Care Teams Geography Department Chair Relationship Specialty Start Date End Date Sanjeev Webster DO [address] [place] [address] PCP - General FAMILY PRACTICE 09/25/20 Dianne Johnson, RN [address] [place] [address] Ecclesiastical Worker (Ambulatory) REGISTERED NURSE 08/14/20 documented as of this encounter
--- OUTSIDE RECORDS SUMMARY | 2024-03-15 00:57 | XMS_ITS | Encounter Summary ---
Author Organization [facility] Address [facility] [place] [address] [place] [address] Care Team Providers Care Staffing Assistant Name Role Phone Dianne Johnson RN Unavailable [phone] Sanjeev Webster DO Primary Care Provider + Encounter Details Date Type Department Care Team (Latest Contact Info) Description 12/12/2022 Travel Social History Tobacco Use Types Packs/Day [...] st Contact Info) Description 04/14/2024 2:00 PM FABRICATION MANAGER Office Visit [facility] Multispecialty Care - [facility] [address] [facility], [address] [place] [address] Julio Pulido MD [address] [place] [address] documented as of this encounter Goals Goal Patient Goal Type Associated Problems Recent Progress Patient-Stated? Author Health - patient able to perform ADLs independently General On track(2023 9:49 AM CDT) Dianne Corona RN Note: 12/17/23: Patient stated she is independent with ASL's. Establish Plan for Symptom Monitoring-CHF General On track(2023 11:36 AM FABRICATION MANAGER) Dianne Corona RN Note: Patient will [...] Symptom Monitoring-COPD General On track(2023 11:36 AM FABRICATION MANAGER) Dianne Corona RN Note: Patient will [...] Symptom Monitoring-DM General On track(2023 4:33 PM FABRICATION MANAGER) Dianne Corona RN Note: Patient will [...] Symptom Monitoring-HTN General On track(2023 4:33 PM FABRICATION MANAGER) Dianne Corona, RN Note: Patient will [...] documented as of this encounter Care Teams Staffing Assistant Relationship Specialty Start Date End Date Sanjeev Webster DO [address] [place] [address] PCP - General FAMILY PRACTICE 09/25/20 Dianne Johnson, RN [address] [place] [address] Furniture Fabricator (Ambulatory) REGISTERED NURSE 08/14/20 documented as of this encounter
--- OUTSIDE RECORDS SUMMARY | 2024-03-15 00:57 | XMS_ITS | Encounter Summary ---
Author Organization [facility] Address [facility]ly [facility]6 [facility]. [place], [place] [address] [place] [address] Care Team Providers Care Group Counselor Name Role Phone Dianne Johnson RN Unavailable [phone] Sanjeev Webstre DO Primary Care Provider + Reason for Visit * Reason Onset Date Comments Question 01/12/2023 Encounter Details Date Type Department Care Team (Late st Contact Info) Description 01/12/2023 Telephone [facility] Family & Internal Medicine [id number] [place] [address] Sanjeev Webster DO [address] [place] [address] Question Social History Tobacco Use [...] How often do you attend chur or nondenominational services? More than 4 times [...] Progress Notes * Sanjeev Webster DO - 01/12/2023 10:19 AM CST Pt was referred to neurology earlier this year; it is unclear where we need to go with this referral. Can we look into this? KING MACHINE OPERATOR documented in this encounter Plan of Treatment Upcoming Encounters Date Type Department Care Team (Late st Contact Info) Description 04/14/2024 2:00 PM BLOCKING MACHINE OPERATOR Office Visit [facility] Multispecialty Care - [facility] [address] [facility], [address] [place] [address] Julio Pulido MD 3 [place] [address] documented as of this encounter Goals Goal Patient Goal Type Associated Problems Recent Progress Patient-Stated? Author Health - patient able to perform ADLs independently General On track(2023 9:49 AM CDT) No Dianne Johnson RN Note: 12/17/23: Patient stated she is independent with ASL's. Establish Plan for Symptom Monitoring-CHF General On track(2023 11:36 AM BLOCKING MACHINE OPERATOR) Dianne Corona RN Note: Patient [...] Symptom Monitoring-COPD General On track(2023 11:36 AM BLOCKING MACHINE OPERATOR) Dianne Corona RN Note: Patient [...] Symptom Monitoring-DM General On track(2023 4:33 PM BLOCKING MACHINE OPERATOR) Dianne Corona RN Note: Patient [...] Symptom Monitoring-HTN General On track(2023 4:33 PM BLOCKING MACHINE OPERATOR) Dianne Corona RN Note: Patient [...] documented as of this encounter Care Teams Group Counselor Relationship Specialty Start Date End Date Sanjeev Webster DO [address] [place] [address] PCP - General FAMILY PRACTICE 09/25/20 Dianne Johnson, RN [address] [place], [place] [id number] Manipulative Therapy Specialist (Ambulatory) REGISTERED NURSE 08/14/20 documented as of this encounter
--- OUTSIDE RECORDS SUMMARY | 2024-03-15 00:57 | XMS_ITS | Encounter Summary ---
Author Organization [facility] Address [facility]6 [facility] [place] [address] [place] [address] Care Team Providers Care Cook Fry Name Role Phone Dianne Johnson RN Unavailable [phone] Sanjeev Webster DO Primary Care Provider + Encounter Details Date Type Department Care Team (Latest Contact Info) Description 12/19/2022 Travel Social History Tobacco Use Types Packs/Day [...] How often do you attend chur or mormonism services? More than 4 times [...] st Contact Info) Description 04/14/2024 2:00 PM CELL ROOM SUPERVISOR Office Visit [facility] Group Multispecialty Care - [facility] [address] [facility], [address] [place] [address] Julio Pulido MD 3 [place] [address] documented as of this encounter Goals Goal Patient Goal Type Associated Problems Recent Progress Patient-Stated? Author Health - patient able to perform ADLs independently General On track(2023 9:49 AM CDT) Dianne Corona RN Note: 12/17/23: Patient stated she is independent with ASL's. Establish Plan for Symptom Monitoring-CHF General On track(2023 11:36 AM CELL ROOM SUPERVISOR) Dianne Corona RN Note: Patient will [...] Symptom Monitoring-COPD General On track(2023 11:36 AM CELL ROOM SUPERVISOR) Dianne Corona RN Note: Patient will [...] Symptom Monitoring-DM General On track(2023 4:33 PM CELL ROOM SUPERVISOR) Dianne Corona RN Note: Patient will [...] Symptom Monitoring-HTN General On track(2023 4:33 PM CELL ROOM SUPERVISOR) Dianne Corona, RN Note: Patient will [...] documented as of this encounter Care Teams Cook Fry Relationship Specialty Start Date End Date Sanjeev Webster DO [address] [place] [address] PCP - General FAMILY PRACTICE 09/25/20 Dianne Johnson, RN [address] [place] [address] Spray Worker (Ambulatory) REGISTERED NURSE 08/14/20 documented as of this encounter
--- OUTSIDE RECORDS SUMMARY | 2024-03-15 00:57 | XMS_ITS | Encounter Summary ---
Author Organization [facility] Address [address] [facility] [place] [address] [place] [address] Care Team Providers Care Software Engineering Project Manager Name Role Phone Dianne Johnson RN Unavailable [phone] Sanjeev Webster DO Primary Care Provider + Reason for Visit * Reason Onset Date Comments Care Management 11/28/2022 [facility] call to the patient. Encounter Details Date Type Department Care Team (Late st Contact Info) Description 11/28/2022 Patient Outreach [facility] Family & Internal Medicine [address] [address] Stu Ruiz RN [address] [place] [address] Care Management (CCM call to the patient. ) Social History [...] Recorded Patient Health Questionnaire-2 Score 3 07/08/2022 [facility] - Occupational Stress Questionnaire Answer Date [...] Progress Notes * Stu Ruiz RN - 11/28/2022 11:30 AM CDT Chronic Care Management: Patient concerns or urgent matters that need addressed: no Patient Status: Patient pleasant and no distress noted. Her last INR was high, so CC instructed herthat she is to be taking 7mg of warfarin on , Thursday and Thursday and then 8mg the other days and to have INR checked again on 12/05/22 and she VU. She denies any s/s of bleeding r/t warfarin therapy. Patient kline alot of back pain and takes hydrocodone PRN. She said she waits to take it though 4 hours after her morning meds and knows she can take it every 6 hours PRN. CC instructed the patient to try a heating pad, which she says she uses a lot. CC also instructed the patient to try pillow support or to roll up a towel like a log and put it behind her back as support and she vu. She doesn't check FBS and doesn't follow a diabetic diet. Patient does not take any medications forDM. She reports SOB only at times and uses the inhaler PRN. No cough and no wheezing reported. No edema present. Appetite is good. Patient still drives a car locally and enjoys that independence. She ambulates with a cane only at times, but denies any falls. She does daily weights, but forgot to check it today. It was 178# yesterday and denies a 2-3# gain overnight. Her [id number] fills her mediplanner and she takes her medications as directed. Patient aware she has a PT/INR scheduled for next week Thursday and she is aware of PCP appt on 01/12/23. Plan of Care: Weekly to monthly calls [...] Future Appointments Date Time Provider Department Center 12/05[facility]2022 1[facility] 01/12/2023 9:20 AM Sanjeev Webster, [facility] 01/16/2023 9:15 AM Sania Gomez MD [facility] 02/02/2023 11:40 AM Panda Moreno MD [facility] Quality care gaps: Health Maintenance Topic Date Due Kidney Health Evaluation Never done ASCVD Statin Never done Annual Medicare Wellness Visit Never done Lipid Panel 08/29/2022 ASCVD LDL 08/29/2022 Zoster Vaccines (1 of 2) 03/31/2023 (Originally 02/19/2016) COVID-19 Vaccine (5 - Pfizer series) 03/31/2023 (Originally 10/24/2021) Hemoglobin A1C 01/07/2023 Diabetes: Retinopathy Eye Exam 04/21/2024 DTaP, Tdap and Td Vaccines (4 - Td or Tdap) 09/05/2030 DEXA SCAN (GENERAL) Completed Pneumococcal Vaccine: 65+ Years Completed Hepatitis C Completed Meningococcal Vaccine Aged Out Problem List: Patient Active Problem List Diagnosis Abnormal stress test Chronic anticoagulation Coronary artery disease involving gakona coronary artery of gakona heart without angina pectoris Dyspnea on exertion H/O mechanical aortic valve replacement Hypertensive heart disease with congestive heart failure ([facility]/HCC) ([facility]) LBBB (left bundle branch block) Myopathy VAZQUEZ (obstructive sleep apnea) Paroxysmal atrial flutter ([facility]/HCC) ([facility]) Benign hypertension with CKD (chronic kidney disease) stage III ([facility]/HCC) Memory deficits Hearing deficit, bilateral History of cataract extraction, unspecified laterality Vitamin D deficiency Hypercalcemia Chronic frontal sinusitis Constipation, unspecified constipation type Chronic bilateral low back pain without sciatica Iron deficiency anemia, unspecified iron deficiency anemia type Disorder of skin of trunk Anemia Body mass index (BMI) 31.0-31.9, adult 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[facility]/HCC) Benign hypertension with stage 3b chronic kidney disease (CMS/HCC) Cobalamin deficiency Compression fracture of thoracic vertebra ([facility]/HCC) (CMS/HCC) Depression Diabetic polyneuropathy ([facility]/HCC) (CMS/HCC) Disorder of rotator cuff Diverticular disease Dysphagia Elevated troponin Gastroesophageal reflux disease without esophagitis Hyperlipidemia, unspecified hyperlipidemia type Vascular dementia ([facility]) Unknown and unspecified causes of morbidity Syncope, unspecified syncope type Senile purpura ([facility]) Wrist joint pain Respiratory illness Requires lifelong warfarin therapy Secondary hyperparathyroidism ([facility]) ([facility]) Presence of prosthetic heart valve Plantar fascial fibromatosis Peripheral neuropathy Parathyroid adenoma Polymyalgia rheumatica ([facility]) ([facility]) Osteoporosis Numbness Muscle cramps Closed stable burst fracture of sixth thoracic vertebra, initial encounter ([facility]) ([facility]) Chest pain Contusion of scalp Knee pain Localized, primary osteoarthritis Osteoarthritis of knee Traumatic closed displaced fracture of distal end of radius Shoulder joint pain Hyperlipidemia associated with type 2 diabetes mellitus ([facility]) ([facility]) PVD (peripheral vascular disease) ([facility]) Hematoma Anxiety Diastolic heart failure ([facility]) ([facility]) Internal hemorrhoids Leukoencephalopathy Major depression single episode, in partial remission ([facility]) Metacarpal bone fracture Mitral valve disorder Purpura ([facility]) Peripheral arterial occlusive disease ([facility]) Primary osteoarthritis involving multiple joints Vision loss COPD (chronic obstructive pulmonary disease) ([facility]) ([facility]) Diarrhea Drug-induced constipation H/O mechanical aortic valve replacement Age-related osteoporosis with current pathological fracture Care Management Physical deconditioning Chronic heart failure with preserved ejection fraction (HFpEF) ([facility]) ([facility]) Paroxysmal atrial fibrillation ([facility]) ([facility]) Hypertension associated with type 2 diabetes mellitus ([facility]) ([facility]) Encounter for prophylactic measures, unspecified Graves' disease Cirrhosis of liver without ascites, unspecified hepatic cirrhosis type ([facility]) ([facility]) Stage 3b chronic kidney disease ([facility]) OLIVE (acute kidney injury) ([facility]) Medications: Current Outpatient Medications Medication Sig Dispense [...] (three) times daily.270 capsule 0 HYDROcodone-acetaminophen (NORCO) 10-325 MG tablet Take 1 tablet by mouth every 6 (six) hours as needed for Pain. Indications: Chronic Pain Do not take with alprazolam. 30 tablet 0 iron polysaccharides (NIFEREX) 150 MG [...] 1 warfarin (COUMADIN) 1 MG tablet Take 1 tablet by mouth once daily 30 tablet 0 warfarin (COUMADIN) 6 MG tablet Take 1 tablet by mouth once daily 30 tablet 0 No current facility-administered medications for this visit. Chronic Care Management- Time Spent with Patient Time spent with patient (minutes): 12 Time spent performing chart review (minutes): 10 Total time (minutes): 22 STU RUIZ RN I reviewed the patient's status and education provided by STU RUIZ RN. I agree with the findings and recommendations made. Cosigned by Sanjeev Webster DO at 11/28/2022 3:58 PM CDT documented in this encounter Plan of Treatment Upcoming Encounters Date Type Department Care Team (Late st Contact Info) Description 04/14/2024 2:00 PM APPLICATION PERFORMANCE ENGINEER Office Visit [facility] Multispecialty Care - [facility] [address] [facility], [address] [place] [address] Julio Pulido MD 3 [place] [address] documented as of this encounter Goals Goal Patient Goal Type Associated Problems Recent Progress Patient-Stated? Author Health - patient able to perform ADLs independently General On track(2023 9:49 AM CDT) Dianne Corona, RN Note: 12/17/23: Patient stated she is independent with ASL's. Establish Plan for Symptom Monitoring-CHF General On track(2023 11:36 AM APPLICATION PERFORMANCE ENGINEER) Dianne Corona, RN Note: Patient will [...] Symptom Monitoring-COPD General On track(2023 11:36 AM APPLICATION PERFORMANCE ENGINEER) Dianne Corona, RN Note: Patient will [...] Symptom Monitoring-DM General On track(2023 4:33 PM APPLICATION PERFORMANCE ENGINEER) Dianne Corona, RN Note: Patient will [...] Symptom Monitoring-HTN General On track(2023 4:33 PM APPLICATION PERFORMANCE ENGINEER) Dianne Corona, RN Note: Patient will [...] Chronic obstructive pulmonary disease, unspecified COPD type ([facility])- Primary Chronic heart failure with preserved ejection fraction (HFpEF) ([facility]) Type 2 diabetes mellitus with stage 3b chronic kidney disease, without long-term current use of insulin ([facility]) documented in this encounter Additional Health Concerns Assessment Noted Time PHQ-9 Depression Total Score: 3 12/24/19 22 11:48 AM CDT documented as of this encounter Care Teams Software Engineering Project Manager Relationship Specialty Start Date End Date Sanjeev Webster DO [address] [place] [address] PCP - General FAMILY PRACTICE 09/25/20 Dianne Johnson, RN [phone] Soap Drier Operator (Ambulatory) REGISTERED NURSE 08/14/20 documented as of this encounter
--- OUTSIDE RECORDS SUMMARY | 2024-03-15 00:57 | XMS_ITS | Encounter Summary ---
Author Organization [facility] Address [facility]. [place], [place] [address] [place] [address] Care Team Providers Care Ear Nose Throat Physician Name Role Phone Dianne Johnson RN Unavailable [phone] Sanjeev Webster DO Primary Care Provider + Reason for Visit * Reason Onset Date Comments Concerns 12/11/2022 Encounter Details Date Type Department Care Team (Late st Contact Info) Description 12/11/2022 Telephone [facility] Family & Internal Medicine [address] [place] [address] Sanjeev Webster DO [facility] [place] [address] Concerns Social History Tobacco Use [...] How often do you attend chur or anabaptist services? More than 4 times per year [...] Progress Notes * Natalee Brown RN - 12/12/2022 3:28 PM CDT Called and spoke with patient. Scheduled appointment. Opportunity given for all questions to be answered, no further needs voiced at this time. LL-12/12/22 * Sanjeev Webster DO - 12/11/2022 4:33 PM CDT Can do Thursday afternoon appointment on 12/19/22. * Yenifer Ingram MA - 12/11/2022 4:23 PM CDT Please advise on where you would like to schedule patient. * Dianne Johnson RN - 12/11/2022 4:09 PM CDT Patient stated she's been depressed for two months now. She takes 3 to 4 hour naps in the day time twice a day and has no issues sleeping at night, pushes self to do things. Stopped going to [facility] on Wednesdays, stopped going to spiritism, doesn't go anywhere and stays at home. She denies SI or HI. Stated she would never hurt herself and she doesn't want to see a Psychiatrist. She informed the ladies at [facility] she is depressed and told Izzy her daughter in law. Stated she told Izzy she needs another nerve pill. Izzy told her she has to go by the prescription. Patient scheduled for INR tomorrow. She is wanting to be seen before 01/12/23 to discuss the above. PHQ2/9 Score today: Patient Health Questionnaire-2 Score: 6 Patient Health Questionnaire-9 Score: 13 documented in this encounter Plan of Treatment Upcoming Encounters Date Type Department Care Team (Late st Contact Info) Description 04/14/2024 2:00 PM SOCIAL SCIENCES INSTRUCTOR Office Visit [facility] Multispecialty Care - [facility] [address] [facility], [address] [place] [address] Julio Pulido MD 3 [place] [address] documented as of this encounter Goals Goal Patient Goal Type Associated Problems Recent Progress Patient-Stated? Author Health - patient able to perform ADLs independently General On track(2023 9:49 AM CDT) Dianne Corona RN Note: 12/17/23: Patient stated she is independent with ASL's. Establish Plan for Symptom Monitoring-CHF General On track(2023 11:36 AM SOCIAL SCIENCES INSTRUCTOR) Dianne Corona RN Note: Patient will [...] Monitoring-COPD General On track(2023 11:36 AM SOCIAL SCIENCES INSTRUCTOR) Dianne Corona RN Note: Patient will [...] Monitoring-DM General On track(2023 4:33 PM SOCIAL SCIENCES INSTRUCTOR) Dianne Corona RN Note: Patient will [...] Monitoring-HTN General On track(2023 4:33 PM SOCIAL SCIENCES INSTRUCTOR) Dianne Corona RN Note: Patient will monitor [...] documented as of this encounter Care Teams Ear Nose Throat Physician Relationship Specialty Start Date End Date Sanjeev Webster DO [address] [place] [address] PCP - General FAMILY PRACTICE 09/25/20 Dianne Johnson, RN [address] [place], [place] [address] Sausage Linker (Ambulatory) REGISTERED NURSE 08/14/20 documented as of this encounter
--- OUTSIDE RECORDS SUMMARY | 2024-03-15 00:57 | XMS_ITS | Encounter Summary ---
Author Organization [facility] Address [facility] [facility] [place] [address] [place] [address] Care Team Providers Care Auto Mechanic Name Role Phone Dianne Johnson RN Unavailable [phone] Sanjeev Webster DO Primary Care Provider + Encounter Details Date Type Department Care Team (Late st Contact Info) Description 12/12/2022 10:20 AM CDT Laboratory Only [facility] Family & Internal Medicine [address] [place] [address] Sanjeev Webster DO [facility] [place] [address] Social History Tobacco Use Types [...] Recorded Patient Health Questionnaire-2 Score 6 12/11/2022 [employer] [facility] - [...] Notes * Natalee Brown RN - 12/12/2022 10:20 AM CDT Patient in today for INR. INR was 2.9. Patient aware of results. Opportunity given for all questions to be answered, no further needs voiced at this time. LL-12/12/22 documented in this encounter Plan of Treatment Upcoming Encounters Date Type Department Care Team (Late st Contact Info) Description 04/14/2024 2:00 PM SATURATOR TENDER Office Visit [facility] Multispecialty Care - [facility] [address] [facility], [address] [place] [address] Julio Pulido MD 3 [place] [address] documented as of this encounter Goals Goal Patient Goal Type Associated Problems Recent Progress Patient-Stated? Author Health - patient able to perform ADLs independently General On track(2023 9:49 AM CDT) No Dianne Johnson RN Note: 12/17/23: Patient stated she is independent with ASL's. Establish Plan for Symptom Monitoring-CHF General On track(2023 11:36 AM SATURATOR TENDER) Dianne Corona RN Note: Patient will [...] Symptom Monitoring-COPD General On track(2023 11:36 AM SATURATOR TENDER) Dianne Corona RN Note: Patient will [...] Symptom Monitoring-DM General On track(2023 4:33 PM SATURATOR TENDER) Dianne Corona, RN Note: Patient will manage [...] Symptom Monitoring-HTN General On track(2023 4:33 PM SATURATOR TENDER) Dianne Corona RN Note: Patient will monitor [...] Date/Time Associated Diagnosis Comments COLLECT.CAPILLARY (FNGR,HEEL,EAR) Routine 12/12/2022 2:05 PM CDT Current use of anticoagulant therapy PROTHROMBIN TIME, FINGERSTICK Routine 12/12/2022 Current use of anticoagulant therapy documented in this encounter Results * PROTIME/INR, FINGERSTICK (12/12/2022) PROTIME WHOLE BLOOD 2.9 [facility] 12/12/2022 us Sanjeev Webster DO LABORATORY Final Re sult [facility] [address] [place] [address], documented in this encounter Visit Diagnoses Diagnosis Current use of anticoagulant therapy- Primary documented in this encounter Additional Health Concerns Assessment Noted Time PHQ-9 Depression Total Score: 13 023 3:56 PM CDT documented as of this encounter Care Teams Auto Mechanic Relationship Specialty Start Date End Date Sanjeev Webster DO [address] [place] [address] PCP - General FAMILY PRACTICE 09/25/20 Dianne Johnson, RN [address] [place] [address] Physical Therapist Center Manager (Ambulatory) REGISTERED NURSE 08/14/20 documented as of this encounter
--- OUTSIDE RECORDS SUMMARY | 2024-03-15 00:57 | XMS_ITS | Encounter Summary ---
Author Organization [facility] Address [facility]6 [facility]. [place], [place] [id number] [place] [id number] Care Team Providers Care Jet Handler Name Role Phone Dianne Johnson RN Unavailable [phone] Sanjeev Webster DO Primary Care Provider + Reason for Visit * Reason Onset Date Comments Question 01/12/2023 Encounter Details Date Type Department Care Team (Late st Contact Info) Description 01/12/2023 Telephone [facility] Family & Internal Medicine [id number] [place] [address] Sanjeev Webster DO [address] [place] [address] Question Social History Tobacco Use [...] Progress Notes * Yenifer Ingram MA - 01/13/2023 11:20 AM CST Spoke with izzy and informed her of the medication dose change. She v/u and did not have questions at this time. MS ASSOCIATE * Yenifer Ingram MA - 01/12/2023 5:00 PM CST LMOM for izzy to r/c to inform her of medication updates below. MS ASSOCIATE * Sanjeev Webster DO - 01/12/2023 10:20 AM CST Please reach out to pt's granddaughter who managers her medications. We kept her warfarin the same today. We did increase her Trulicity to 1.5 mg weekly, but it is given at the same directions otherwise. No other medication changes. MS ASSOCIATE documented in this encounter Plan of Treatment Upcoming Encounters Date Type Department Care Team (Late st Contact Info) Description 04/14/2024 2:00 PM CLAIMS ASSOCIATE Office Visit [facility] Medical Group Multispecialty Care - [facility] [address], [address] [place] [address] Julio Pulido MD [address] [place] [address] (work) documented as of this encounter Goals Goal Patient Goal Type Associated Problems Recent Progress Patient-Stated? Author Health - patient able to perform ADLs independently General On track(2023 9:49 AM CDT) Dianne Corona RN Note: 12/17/23: Patient stated she is independent with ASL's. Establish Plan for Symptom Monitoring-CHF General On track(2023 11:36 AM CLAIMS ASSOCIATE) Dianne Corona RN Note: Patient will [...] Symptom Monitoring-COPD General On track(2023 11:36 AM CLAIMS ASSOCIATE) Dianne Corona RN Note: Patient will [...] Symptom Monitoring-DM General On track(2023 4:33 PM CLAIMS ASSOCIATE) Dianne Corona RN Note: Patient will [...] Symptom Monitoring-HTN General On track(2023 4:33 PM CLAIMS ASSOCIATE) Dianne Corona, RN Note: Patient will monitor [...] documented as of this encounter Care Teams Jet Handler Relationship Specialty Start Date End Date Sanjeev Webster DO [address] [place] [address] PCP - General FAMILY PRACTICE 09/25/20 Dianne Johnson, RN [address] [place] [address] Taxi Truck Driver (Ambulatory) REGISTERED NURSE 08/14/20 documented as of this encounter
--- OUTSIDE RECORDS SUMMARY | 2024-03-15 00:57 | XMS_ITS | Encounter Summary ---
Author Organization [facility] Address [facility] [place] [address] [place] [address] Care Team Providers Care Apartment Assistant Manager Name Role Phone Casey Johnson RN Unavailable [phone] Sanjeev Webster DO Primary Care Provider + Reason for Visit * Reason Onset Date Comments Care Management 01/13/2023 Encounter Details Date Type Department Care Team (Late st Contact Info) Description 01/13/2023 Patient Outreach [facility] Medical Group Family & Internal Medicine [address] [address] Casey Johnson, RN [address] [place] [address] Care Management Social History Tobacco [...] Progress Notes * Casey Johnson RN - 01/13/2023 2:46 PM CST Chronic Care Management: Patient concerns or urgent matters that need addressed: Patient stated increased Trulicity yesterday. When she went to pick it up she was told it would cost $400 so she picked up a lesser amount. CC will reach out to [facility] and find out. Patient appreciates it. 01/13/23: [facility] Stated patient picked up a 28 day supply of Trulicity for $39. Amy stated an 84 day supply cost over $400. Amy placed CC on briefhold to find out why it cost over $400 for a 84 day supply. [facility] Stating it may be better for patient to get a 28 day supply next time. Patient Status: Contacted patient today. referred patient to Neurologist and she hasn't seen Neurologist. Patient stated she can be seen on or Thursday. Informed patient CC will reach out to 's office and get appointment scheduled in [place]. Patient verbalizes understanding. 01/13/23: Contacted Chanel with the referral department to find out if referral for can be extended since it expires in March. Chanel stated to make appointment first then call referral department back to extend referral. 01/13/23: Attempted to contact 's office to schedule appointment. Patient is agreeable. No answer and office closes at 3:00 PM. Will try again tomorrow. 01/13/23: Contacted patient about the above with Nilo and . Patient is going to [facility] tomorrow and requesting a call back after 11:00 am tomorrow regarding appointment. She will [facility]. 01/14/23: Attempted to contact 's office without a response. Office open's at 9:00 am today.Will try again later. 01/14/23: Patient has appointment to see in [place] on 02/03/23 at 1:00 PM. copy coordinator will contact patient and remind her. Appointment was made a couple of months ago per Amina at 's office. 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 [address] [place] [address]. 02/03/23 @ 1:00 PM [phone] 01/14/23: Left message for patient to return phone call regarding the above information. Appointment reminder letter mailed to patient today. 01/14/23: Contacted patient and gave her the above information. She did not have anything to write with during the call. She is aware mailed her appointment information today. She did not have any questions for CC at this time. Encouraged to call with any changes. Patient thanked for calling. Plan of Care: copy coordinator will continue to follow up by [...] Future Appointments Date Time Provider Department Center 01/16/2023 9:15 AM Sania Gomez MD [facility] 02/02/2023 11:40 AM Panda Moreno MD [facility] 02/16/2023 10:40 AM Sanjeev Webster DO [facility] Quality care gaps: Health Maintenance Topic Date Due Kidney Health Evaluation Never done ASCVD Statin Never done RSV Immunization 60+ (1 - 1-dose 60+ series) Never done Annual Medicare Wellness Visit Never done Lipid Panel 08/29/2022 ASCVD LDL 08/29/2022 COVID-19 Vaccine (5 - 2022-24 season) 2022 Zoster Vaccines (2 of 2) 01/06/2023 Hemoglobin A1C 07/13/2023 Diabetes: Retinopathy Eye Exam 04/21/2024 DTaP, Tdap and Td Vaccines (4 - Td or Tdap) 09/05/2030 DEXA SCAN (GENERAL) Completed Influenza Adult Completed Pneumococcal Vaccine: 65+ Years Completed Hepatitis C Completed Meningococcal Vaccine Aged Out Problem List: Patient Active Problem List Diagnosis Abnormal stress test Chronic anticoagulation Coronary artery disease involving asa'[place] coronary artery of asa'[place] heart without angina pectoris Dyspnea on exertion H/O mechanical aortic valve replacement Hypertensive heart disease with congestive heart failure ([facility]) ([facility]) LBBB (left bundle branch block) Myopathy VAZQUEZ (obstructive sleep apnea) Paroxysmal atrial flutter ([facility]) ([facility]) Benign hypertension with CKD (chronic kidney disease) stage III ([facility]) Memory deficits Hearing deficit, bilateral History of cataract extraction, unspecified laterality Vitamin D deficiency Hypercalcemia Chronic frontal sinusitis Constipation, unspecified constipation type Chronic bilateral low back pain without sciatica Iron deficiency anemia, unspecified iron deficiency anemia type Disorder of skin of trunk Anemia Body mass index (BMI) 31.0-31.9, adult 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[facility]) Benign hypertension with stage 3b chronic kidney disease ([facility]) Cobalamin deficiency Compression fracture of thoracic vertebra ([facility]) ([facility]) Depression Diabetic polyneuropathy ([facility]) ([facility]) Disorder of rotator cuff Diverticular disease Dysphagia Elevated troponin Gastroesophageal reflux disease without esophagitis Hyperlipidemia, unspecified hyperlipidemia type Vascular dementia ([facility]) Unknown and unspecified causes of morbidity Syncope, unspecified syncope type Wrist joint pain Respiratory illness Requires lifelong warfarin therapy Secondary hyperparathyroidism ([facility]) ([facility]) Presence of prosthetic heart valve Plantar fascial fibromatosis Peripheral neuropathy Parathyroid adenoma Polymyalgia rheumatica ([facility]) ([facility]) Osteoporosis Numbness Muscle cramps Closed stable burst fracture of sixth thoracic vertebra, initial encounter ([facility]) ([facility]) Chest pain Contusion of scalp Knee pain Localized, primary osteoarthritis Osteoarthritis of knee Traumatic closed displaced fracture of distal end of radius Shoulder joint pain Hyperlipidemia associated with type 2 diabetes mellitus ([facility]) ([facility]) PVD (peripheral vascular disease) ([facility]) Hematoma Anxiety Diastolic heart failure ([facility]) ([facility]) Internal hemorrhoids Leukoencephalopathy Major depression single episode, in partial remission ([facility]) Metacarpal bone fracture Mitral valve disorder Peripheral arterial occlusive disease ([facility]) Primary osteoarthritis involving multiple joints Vision loss COPD (chronic obstructive pulmonary disease) ([facility]) ([facility]) Diarrhea Drug-induced constipation H/O mechanical aortic valve replacement Age-related osteoporosis with current pathological fracture Care Management Physical deconditioning Chronic heart failure with preserved ejection fraction (HFpEF) ([facility]) ([facility]) Paroxysmal atrial fibrillation ([facility]) ([facility]) Hypertension associated with type 2 diabetes mellitus ([facility]) ([facility]) Encounter for prophylactic measures, unspecified Graves' disease Cirrhosis of liver without ascites, unspecified hepatic cirrhosis type ([facility]) ([facility]) Stage 3b chronic kidney disease ([facility]) OLIVE (acute kidney injury) ([facility]) Medications: Current Outpatient Medications [...] Patient Time spent with patient (minutes): 14 (Comment: Time spent with patient and office.) Time spent performing chart review (minutes): 6 Total time (minutes): 20 CASEY JOHNSON RN I reviewed the patient's status and education provided by CASEY JOHNSON RN. I agree with the findings and recommendations made. Cosigned by Sanjeev Webster DO at 01/18/2023 8:40 PM WAX POT TENDER POT TENDER POT TENDER POT TENDER documented in this encounter Plan of Treatment Upcoming Encounters Date Type Department Care Team (Late st Contact Info) Description 04/14/2024 2:00 PM WAX POT TENDER Office Visit [facility] Group Multispecialty Care - [address], [address] [place] [address] Julio Pulido MD [address] [place] [address] documented as of this encounter Goals Goal Patient Goal Type Associated Problems Recent Progress Patient-Stated? Author Health - patient able to perform ADLs independently General On track(2023 9:49 AM CDT) Casey Corona, RN Note: 12/17/23: Patient stated she is independent with ASL's. Establish Plan for Symptom Monitoring-CHF General On track(2023 11:36 AM WAX POT TENDER) Casey Corona, RN Note: Patient will recognize [...] Monitoring-COPD General On track(2023 11:36 AM WAX POT TENDER) Casey Corona RN Note: Patient will recognize [...] Monitoring-DM General On track(2023 4:33 PM WAX POT TENDER) Casey Corona RN Note: Patient will manage [...] Monitoring-HTN General On track(2023 4:33 PM WAX POT TENDER) Casey Corona, RN Note: Patient will monitor [...] disease, without long-term current use of insulin ([facility])- Primary Chronic heart failure with preserved ejection fraction (HFpEF) ([facility]) Chronic obstructive pulmonary disease, unspecified COPD type ([facility]) documented in this encounter Additional Health Concerns Assessment Noted Time PHQ-9 Depression Total Score: 13 023 3:56 PM CDT documented as of this encounter Care Teams Apartment Assistant Manager Relationship Specialty Start Date End Date Sanjeev Webster DO [address] [place] [id number] PCP - General FAMILY PRACTICE 09/25/20 Casey Johnson, RN [address] [place] [address] Networking Technology Instructor (Ambulatory) REGISTERED NURSE 08/14/20 documented as of this encounter
--- OUTSIDE RECORDS SUMMARY | 2024-03-15 00:57 | XMS_ITS | Encounter Summary ---
Author Organization [facility] Address [facility] [place] [address] [place] [address] Care Team Providers Care Mixer Operator Hot Metal Name Role Phone Casey Johnson RN Unavailable [phone] Sanjeev Webster DO Primary Care Provider + Reason for Visit * Reason Onset Date Comments Care Management 12/24/2022 Encounter Details Date Type Department Care Team (Late st Contact Info) Description 12/24/2022 Patient Outreach [facility] Family & Internal Medicine [address] [address] Casey Johnson, RN [address] [place] [address] Care Management Social History Tobacco [...] How often do you attend chur or mormon services? More than 4 times [...] Questionnaire-2 Score 6 12/11/2022 [facility] [...] Progress Notes * Casey Johnson RN - 12/24/2022 10:37 AM CDT Chronic Care Management: Patient concerns or urgent matters that need addressed: Non identified during this phone call. Patient Status: Contacted patient today. She is a very pleasant lady in good spirits. Seen by on 12/19/22 for depression, skin tears and mouth sores. B/P stable. Mouth sores have gone away and patient denies any s/s of infection with skin tears. Educated patient on s/s of infection to look for and atthe onset of any issues to contact CC or office. Patient stated she is not taking naps in the daytime anymore. Reports getting a Shingles injection at [facility] and after the injection stated her depression became worse. Stated now sheis better and will not go back to [facility] to get the second dose of shingles vaccine. Reviewed immunization record. Patient received Shingrix on 11/11/22. Patient is aware placed referral to in [place] since will no longer be seeing patients. She is aware someone will contact her with an appointment. Fall risk prevention: Educated on fall risk prevention. Encouraged patient to clear pathways, remove clutter and have plenty of lighting in her home especially at night when she gets up to use restroom. Patient verbalizes understanding. Type 2 Diabetes: Patient started Dulaglutide 0.75 mg weekly. Stated she gives herself injection on Sundays. Denies any issues or concerns with giving herself injections. Stated she's given herself injections in the past. Patient is not checking BS at this time. Stated she will need a glucose meter.Message sent to nursing team to find out if recommends patient checking her BS and if so, how often. Patient is aware. Educated on s/s of hypoglycemia s/s. Last A1C on 07/07/22: 6.6 %. Patient due for recheck in January. Patient hasn't received influenza vaccine at this time. Stated she forgot to ask at last visit. She would like to get it done on 01/12/23 when she is seen by again. Added to appointment details and patient is aware. Patient aware she is due for a PT/INR at next OV with PCP. She denies any issues with bleeding at this time. Denies any issues with CHF exacerbation s/s or COPD exacerbation s/s. She is weighing herself everymorning. Reports weight this am: 183 and denies a weight gain of 3 lbs over night. Encouraged patient to contact CC at the onset of any changes. ADL's: Patient is independent with ADL's. Stated she will take breaks when she is doing her dishes or sit on a stool and do her dishes. She is making her own meals and denies needing MOW. Stated she made zucchini bread for her son the other day and she hasn't made this in a while. Denies needing a nozzle and sleeve worker at this time. Reports medications are affordable. Patient thanked CC for calling. Plan of Care: medical front desk coordinator will continue to follow up by [...] Future Appointments Date Time Provider Department Center 01/12/2023 9:20 AM Sanjeev Webster DO [facility] 01/16/2023 9:15 AM Sania Gomez MD [facility] 02/02/2023 11:40 AM Panda Moreno MD [facility] Quality care gaps: Health Maintenance Topic Date Due Kidney Health Evaluation Never done ASCVD Statin Never done RSV Immunization 60+ (1 - 1-dose 60+ series) Never done Annual Medicare Wellness Visit Never done Lipid Panel 08/29/2022 ASCVD LDL 08/29/2022 COVID-19 Vaccine (2022- season) 2022 Influenza Adult (1) 12/07/2022 Hemoglobin A1C 01/07/2023 Zoster Vaccines (2 of 2) 01/06/2023 Diabetes: Retinopathy Eye Exam 04/21/2024 DTaP, Tdap and Td Vaccines (4 - Td or Tdap) 09/05/2030 DEXA SCAN (GENERAL) Completed Pneumococcal Vaccine: 65+ Years Completed Hepatitis C Completed Meningococcal Vaccine Aged Out RSV Immunizations Under 20 Months Aged Out Problem List: Patient Active Problem List Diagnosis Abnormal stress test Chronic anticoagulation Coronary artery disease involving soboba coronary artery of soboba heart without angina pectoris Dyspnea on exertion H/O mechanical aortic valve replacement Hypertensive heart disease with congestive heart failure ([facility]) ([facility]) LBBB (left bundle branch block) Myopathy VAZQUEZ (obstructive sleep apnea) Paroxysmal atrial flutter ([facility]) ([facility]) Benign hypertension with CKD (chronic kidney disease) stage III ([facility]) Memory deficits Hearing deficit, bilateral History of cataract extraction, unspecified laterality Vitamin D deficiency Hypercalcemia Chronic frontal sinusitis Constipation, unspecified constipation type Chronic bilateral low back pain without sciatica Iron deficiency anemia, unspecified iron deficiency anemia type Disorder of skin of trunk Anemia Body mass index (BMI) 31.0-31.9, adult 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[facility]) Benign hypertension with stage 3b chronic kidney disease ([facility]) Cobalamin deficiency Compression fracture of thoracic vertebra ([facility]) ([facility]) Depression Diabetic polyneuropathy ([facility]) ([facility]) Disorder of rotator cuff Diverticular disease Dysphagia Elevated troponin Gastroesophageal reflux disease without esophagitis Hyperlipidemia, unspecified hyperlipidemia type Vascular dementia ([facility]) Unknown and unspecified causes of morbidity Syncope, unspecified syncope type Senile purpura ([facility]) Wrist joint pain Respiratory illness Requires lifelong warfarin therapy Secondary hyperparathyroidism ([facility]) ([facility]) Presence of prosthetic heart valve Plantar fascial fibromatosis Peripheral neuropathy Parathyroid adenoma Polymyalgia rheumatica ([facility]) ([facility]) Osteoporosis Numbness Muscle cramps Closed stable burst fracture of sixth thoracic vertebra, initial encounter ([facility]) ([facility]) Chest pain Contusion of scalp Knee pain Localized, primary osteoarthritis Osteoarthritis of knee Traumatic closed displaced fracture of distal end of radius Shoulder joint pain Hyperlipidemia associated with type 2 diabetes mellitus ([facility]) ([facility]) PVD (peripheral vascular disease) ([facility]) Hematoma Anxiety Diastolic heart failure ([facility]) ([facility]) Internal hemorrhoids Leukoencephalopathy Major depression single episode, in partial remission ([facility]) Metacarpal bone fracture Mitral valve disorder Purpura ([facility]) Peripheral arterial occlusive disease ([facility]) Primary osteoarthritis involving multiple joints Vision loss COPD (chronic obstructive pulmonary disease) ([facility]) ([facility]) Diarrhea Drug-induced constipation H/O mechanical aortic valve replacement Age-related osteoporosis with current pathological fracture Care Management Physical deconditioning Chronic heart failure with preserved ejection fraction (HFpEF) ([facility]) ([facility]) Paroxysmal atrial fibrillation ([facility]) ([facility]) Hypertension associated with type 2 diabetes mellitus ([facility]) ([facility]) Encounter for prophylactic measures, unspecified Graves' disease Cirrhosis of liver without ascites, unspecified hepatic cirrhosis type ([facility]) ([facility]) Stage 3b chronic kidney disease ([facility]) OLIVE (acute kidney injury) ([facility]) Medications: Current Outpatient Medications Medication Sig Dispense [...] with Patient Time spent with patient (minutes): 18 Time spent performing chart review (minutes): 9 Total time (minutes): 27 CASEY JOHNSON RN I reviewed the patient's status and education provided by CASEY JOHNSON RN. I agree with the findings and recommendations made. Cosigned by Sanjeev Webster DO at 12/25/2022 4:34 PM CDT documented in this encounter Plan of Treatment Upcoming Encounters Date Type Department Care Team (Late st Contact Info) Description 04/14/2024 2:00 PM CONTACT OFFICER Office Visit [facility] Multispecialty Care - [facility] [address] [facility], [address] [place] [address] Jluio Pulido MD [address] [place] [address] documented as of this encounter Goals Goal Patient Goal Type Associated Problems Recent Progress Patient-Stated? Author Health - patient able to perform ADLs independently General On track(2023 9:49 AM CDT) Casey Corona RN Note: 12/17/23: Patient stated she is independent with ASL's. Establish Plan for Symptom Monitoring-CHF General On track(2023 11:36 AM CONTACT OFFICER) Casey Corona, RN Note: Patient will recognize [...] Symptom Monitoring-COPD General On track(2023 11:36 AM CONTACT OFFICER) Casey Corona RN Note: Patient will recognize [...] Symptom Monitoring-DM General On track(2023 4:33 PM CONTACT OFFICER) Casey Corona, RN Note: Patient will manage [...] Symptom Monitoring-HTN General On track(2023 4:33 PM CONTACT OFFICER) No Casey Johnson, RN Note: Patient will [...] disease, without long-term current use of insulin ([facility])- Primary Chronic obstructive pulmonary disease, unspecified COPD type ([facility]) Chronic heart failure with preserved ejection fraction (HFpEF) ([facility]) documented in this encounter Additional Health Concerns Assessment Noted Time PHQ-9 Depression Total Score: 13 023 3:56 PM CDT documented as of this encounter Care Teams Mixer Operator Hot Metal Relationship Specialty Start Date End Date Sanjeev Webster DO [address] [place] [id number] PCP - General FAMILY PRACTICE 09/25/20 Casey Johnson, RN [address] [place] [address] Thread Dresser (Ambulatory) REGISTERED NURSE 08/14/20 documented as of this encounter
--- OUTSIDE RECORDS SUMMARY | 2024-03-15 00:57 | XMS_ITS | Encounter Summary ---
Author Organization [facility] Address [facility]. [place], [place] [address] [place] [id number] Care Team Providers Care Tube Bending Machine Operator Name Role Phone Dianne Johnson RN Unavailable [phone] Sanjeev Webster DO Primary Care Provider + Reason for Visit * Reason Onset Date Comments Results 12/05/2022 Encounter Details Date Type Department Care Team (Late st Contact Info) Description 12/05/2022 Telephone [facility] Family & Internal Medicine [id number] [place] [address] Sanjeev Webster DO [facility] [place] [address] Results Social History Tobacco Use [...] Recorded Patient Health Questionnaire-2 Score 3 07/08/2022 [facility] [...] Assessment Author Status No 08/26/2022 7:46 PM nIdiana Call RN Active * Are you blind [...] Progress Notes * Scarlett Guerrero MA - 12/05/2022 11:37 AM CDT Izzy notified and v/u , medication directions updated to reflect the change * Scarlett Guerrero MA - 12/05/2022 8:51 AM CDT Lmtc 12/05/22 * Scarlett Guerrero MA - 12/05/2022 8:50 AM CDT ----- Message from Sanjeev Webster DO sent at 12/04/2022 3:04 PM CDT ----- PT/INR has again swung below. Please clarify dosing; I believe it is M-F 7 mg and Sat & Sun 8 mg. If this is correct, do M-R 7 mg and F, Sat, & Sun 8 mg. Repeat in 1 week. documented in this encounter Plan of Treatment Upcoming Encounters Date Type Department Care Team (Late st Contact Info) Description 04/14/2024 2:00 PM BARRELHEAD INSPECTOR Office Visit [facility] Multispecialty Care - [address], [address] [place] [address] Julio Pulido MD [address] [place] [address] documented as of this encounter Goals Goal Patient Goal Type Associated Problems Recent Progress Patient-Stated? Author Health - patient able to perform ADLs independently General On track(2023 9:49 AM CDT) Dianne Corona RN Note: 12/17/23: Patient stated she is independent with ASL's. Establish Plan for Symptom Monitoring-CHF General On track(2023 11:36 AM BARRELHEAD INSPECTOR) Dianne Corona, RN Note: Patient will [...] Symptom Monitoring-COPD General On track(2023 11:36 AM BARRELHEAD INSPECTOR) Dianne Corona RN Note: Patient will [...] Symptom Monitoring-DM General On track(2023 4:33 PM BARRELHEAD INSPECTOR) Dianne Corona RN Note: Patient will [...] Symptom Monitoring-HTN General On track(2023 4:33 PM BARRELHEAD INSPECTOR) No Dianne Johnson, RN Note: Patient will [...] documented as of this encounter Care Teams Tube Bending Machine Operator Relationship Specialty Start Date End Date Sanjeev Webster DO [address] [place] [id number] PCP - General FAMILY PRACTICE 09/25/20 Dianne Johnson, RN [address] [place] [address] [place] Machine Operator Helper (Ambulatory) REGISTERED NURSE 08/14/20 documented as of this encounter
--- OUTSIDE RECORDS SUMMARY | 2024-03-15 00:57 | XMS_ITS | Encounter Summary ---
Author Organization [facility] Address [facility]6 [facility]. [place], [place] [address] [place] [address] Care Team Providers Care Senior Librarian Name Role Phone Dianne Johnson RN Unavailable [phone] Sanjeev Webster DO Primary Care Provider + Reason for Referral * Imaging (Routine) - Closed Specialty Diagnoses / Procedures Referred By Contac t Referred To Contact RADIOLOGY Diagnoses Cerebral aneurysm, nonruptured (HHS/HCC) Procedures CTA HEAD Sanjeev Webster DO [address] [place] [address] Phone: tel: fax: Referral ID Status Reason Start Date Expiration Date Visits Re quested Visits Authorized [id number] Closed 01/12/2023 01/13/2024 1 1 UTER ARCHITECT Reason for Visit * Reason Comments Depression Follow up. Encounter Details Date Type Department Care Team (Late st Contact Info) Description 01/12/2023 9:20 AM COMPUTER ARCHITECT Office Visit [facility] Family & Internal Medicine [facility] [address] [place] [address] Sanjeev Webster DO [address] [place], [place] [id number] Depression (Follow up.) Social History Tobacco Use Types Packs/Day Years [...] 6 12/11/2022 [facility] - Occupational Stress Questionnaire Answer Date [...] Sign Reading Time Taken Comments Blood Pressure 126/86 01/12/2023 9:33 AM COMPUTER ARCHITECT Pulse 58 01/12/2023 9:33 AM COMPUTER ARCHITECT Temperature 36.2 ??C (97.2 ??F) 01/12/2023 9:[address] Respiratory Rate 16 01/12/2023 9:33 AM COMPUTER ARCHITECT Oxygen Saturation 98% 01/12/2023 9:33 AM COMPUTER ARCHITECT Inhaled Oxygen Concentration - - Weight 83.9 kg (185 lb) 01/12/2023 9:33 AM COMPUTER ARCHITECT Height 165.1 cm (5' 5 ) 01/12/2023 9:33 AM COMPUTER ARCHITECT Body Mass Index 30.79 01/12/2023 9:33 AM COMPUTER ARCHITECT documented in this encounter Functional Status [...] Progress Notes * Yenifer Ingram MA - 01/12/2023 9:20 AM CST 1. Are you allergic to eggs, chicken or chicken feathers? No 2. Do you currently have an illness or fever? No 3. Have you ever had an allergic reaction to the influenza vaccine? No 4. Do you have Guillain-Fairburn Syndrome? No Flu vaccine administered in Right Deltoid. No flashback seen and no adverse reactions were observedwhile the patient was in the clinic. Pt left clinic in no acute distress. Verified by: TLL. UTER ARCHITECT * Sanjeev Webster, - 01/12/2023 9:20 AM CST Images from the original note were not included. GENERAL OFFICE VISIT Encounter Date: 01/12/2023 Chief Complaint: 77-year-old female presents for Depression (Follow up.) HPI: Patient has Type 2 Diabetes. Patient has had diabetes for multiple years. Medications include Trulicity. BS logs range: doesn't check. Patient's weight has gone down one pound. Pt has neuropathy and PAD, both of which are stable. Pt is on gabapentin for neuropathy. Office Visit on 01/12/2023 Component Date Value Ref Range Status INR WHOLE BLOOD 01/12/2023 2.50 Final HGB A1C 01/12/2023 6.2 % Final Pt has hyperthyroidism. Patient is currently on methimazole. She is following with endocrine Dr. Moreno, but she has not followed up as recommended with them. She is need to see a new county demonstrator as Dr. Moreno will no longer be practicing. Her last labs were stable on 08/26/22. She has has previous ultrasound from 2021 that showed chronic thyroiditis. Patient has elevated thyroid peroxidase antibodies from labs on 01/13/22. Pt's TSI was also elevated. Pt has been on methimazole since August 2021. At last OV, we referred pt to Dr. Card. Pt has one more appointment scheduled with Dr. Moreno on 02/02/23. Pt has not seen neurology for f/u on her aneurysm. She is needing repeat imaging and clarification of the referral for this. Review of Systems Constitutional: Negative for fever. Cardiovascular: Negative for chest pain. Gastrointestinal: At baseline Neurological: At baseline Patient Active Problem List Diagnosis Abnormal stress test Chronic anticoagulation Coronary artery disease involving coquille coronary artery of coquille heart without angina pectoris Dyspnea on exertion H/O mechanical aortic valve replacement Hypertensive heart disease with congestive heart failure ([facility]) ([facility]) LBBB (left bundle branch block) Myopathy VAZQUEZ (obstructive sleep apnea) Paroxysmal atrial flutter ([facility]) ([facility]) Benign hypertension with CKD (chronic kidney disease) stage III ([facility]) Memory deficits Hearing deficit, bilateral History of cataract extraction, unspecified laterality Vitamin D deficiency Hypercalcemia Chronic frontal sinusitis Constipation, unspecified constipation type Chronic bilateral low back pain without sciatica Iron deficiency anemia, unspecified iron deficiency anemia type Disorder of skin of trunk Anemia Body mass index (BMI) 31.0-31.9, adult 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[facility]) Benign hypertension with stage 3b chronic kidney disease ([facility]) Cobalamin deficiency Compression fracture of thoracic vertebra ([facility]) ([facility]) Depression Diabetic polyneuropathy ([facility]) ([facility]) Disorder of rotator cuff Diverticular disease Dysphagia Elevated troponin Gastroesophageal reflux disease without esophagitis Hyperlipidemia, unspecified hyperlipidemia type Vascular dementia ([facility]) Unknown and unspecified causes of morbidity Syncope, unspecified syncope type Wrist joint pain Respiratory illness Requires lifelong warfarin therapy Secondary hyperparathyroidism ([facility]) ([facility]) Presence of prosthetic heart valve Plantar fascial fibromatosis Peripheral neuropathy Parathyroid adenoma Polymyalgia rheumatica ([facility]) ([facility]) Osteoporosis Numbness Muscle cramps Closed stable burst fracture of sixth thoracic vertebra, initial encounter ([facility]) ([facility]) Chest pain Contusion of scalp Knee pain Localized, primary osteoarthritis Osteoarthritis of knee Traumatic closed displaced fracture of distal end of radius Shoulder joint pain Hyperlipidemia associated with type 2 diabetes mellitus ([facility]) ([facility]) PVD (peripheral vascular disease) ([facility]) Hematoma Anxiety Diastolic heart failure ([facility]) ([facility]) Internal hemorrhoids Leukoencephalopathy Major depression single episode, in partial remission ([facility]) Metacarpal bone fracture Mitral valve disorder Peripheral arterial occlusive disease ([facility]) Primary osteoarthritis involving multiple joints Vision loss COPD (chronic obstructive pulmonary disease) ([facility]) ([facility]) Diarrhea Drug-induced constipation H/O mechanical aortic valve replacement Age-related osteoporosis with current pathological fracture Care Management Physical deconditioning Chronic heart failure with preserved ejection fraction (HFpEF) ([facility]) ([facility]) Paroxysmal atrial fibrillation ([facility]) ([facility]) Hypertension associated with type 2 diabetes mellitus ([facility]/HCC) ([facility]) Encounter for prophylactic measures, unspecified Graves' disease Cirrhosis of liver without ascites, unspecified hepatic cirrhosis type ([facility]) ([facility]) Stage 3b chronic kidney disease ([facility]) OLIVE (acute kidney injury) ([facility]) 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 Anxiety Atrial fibrillation with rapid ventricular response ([facility]) ([facility]) 08/22/2020 Atrial flutter ([facility]) ([facility]) Cataract Chronic anticoagulation due to mechanical heart valve Chronic pain Diabetes mellitus ([facility]) ([facility]) H/O mechanical aortic valve replacement 2003 Hypertension [...] and Family: Three times a week Attends Mosque Services: More than 4 times per year [...] (Generic) 06/05/2016, 09/05/2020 Tetanus/Diptheria 07/22/2014 Zoster (Zostavax) 32253 Unt/0.65Ml 12/25/2015 Current Outpatient Medications Medication Sig [...] Pain Cramping in legs Objective: Filed Vitals: 01/12/23 0933 BP: 126/86 Pulse: (!) 58 Resp: 16 Temp: 97.2 ??F (36.2 ??C) TempSrc: Skin SpO2: 98% Weight: 83.9 kg (185 lb) Height: 1.651 m (5' 5 ) [...] tenderness. Neurological: Mental Status: She is alert. Mental status is at baseline. Psychiatric: Mood and Affect: Mood normal. Assessment & Plan: Radha was seen today for depression. Diagnoses and all orders for this visit: Type 2 diabetes mellitus with stage 3b chronic kidney disease, without long-term current use of insulin ([facility]) ([facility]) - A1C (BACK OFFICE) - COLLECT.CAPILLARY (FNGR,HEEL,EAR) - dulaglutide ([facility]) 1.5 MG/0.5ML injection; Inject 1.5 mg into the skin once a week. Indications: Diabetes Hyperthyroidism Cerebral aneurysm, nonruptured ([facility]) - CTA HEAD; Future H/O mechanical aortic valve replacement - PROTIME/INR, FINGERSTICK intermediate (current) use of anticoagulants - PROTIME/INR, FINGERSTICK Need for immunization against influenza - [55490] Influenza Virus Vaccine, Split Virus 0.7 mL (Single Dose Syringe Fluzone High Dose) Discussion/Summary: We will get influenza vaccination at this time. Will increase Trulicity to 1.5 mg weekly. Continue current dose of warfarin. Will order CTA of head today. Follow-up with all specialists as recommended. We will have patient follow-up in 1 month or sooner if needed. Patient verbalized understanding. I personally spent a total of 45 minutes on the day of the encounter. This includes axwb-ba-affg and cib-dqeq-hr-face time I provided on the day of the encounter & excludes time spent performing separately reportable services. Sanjeev Webster DO UTER ARCHITECT documented in this encounter Plan of Treatment Upcoming Encounters Date Type Department Care Team (Late st Contact Info) Description 04/14/2024 2:00 PM COMPUTER ARCHITECT Office Visit [facility] Multispecialty Care - [facility] [address] [facility], [address] [place] [address] Julio Pulido MD [address] [place] [address] Scheduled Orders Name Type Priority Associated Diagnoses Orde r Schedule CTA HEAD CT Routine Cerebral aneurysm, nonruptured ([facility]/HCC) Expected: 01/12/2023, Expires: 01/13/2024 documented as of this encounter Goals Goal Patient Goal Type Associated Problems Recent Progress Patient-Stated? Author Health - patient able to perform ADLs independently General On track(2023 9:49 AM CDT) No Dianne Johnson, RN Note: 12/17/23: Patient stated she is independent with ASL's. Establish Plan for Symptom Monitoring-CHF General On track(2023 11:36 AM COMPUTER ARCHITECT) Dianne Corona, RN Note: Patient will recognize [...] Symptom Monitoring-COPD General On track(2023 11:36 AM COMPUTER ARCHITECT) Dianne Corona RN Note: Patient will [...] Symptom Monitoring-DM General On track(2023 4:33 PM COMPUTER ARCHITECT) Dianne Corona RN Note: Patient will [...] Symptom Monitoring-HTN General On track(2023 4:33 PM COMPUTER ARCHITECT) Dianne Corona RN Note: Patient will [...] Date/Time Associated Diagnosis Comments COLLECT.CAPILLARY (FNGR,HEEL,EAR) Routine 01/12/2023 9:44 AM COMPUTER ARCHITECT Type 2 diabetes mellitus with stage 3b chronic kidney disease, without long-term current use of insulin ([facility]) PROTHROMBIN TIME, FINGERSTICK Routine 01/12/2023 H/O mechanical aortic valve replacement 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 [place] [address], * PROTIME/INR, FINGERSTICK (01/12/2023) INR WHOLE BLOOD 2.[address] [facility] [facility] 01/12/2023 us Sanjeev P Luchtefneel DO LABORATORY Final Re sult Performing Organization Address [facility] [place] [address], [place] documented in this encounter Visit Diagnoses Diagnosis Type 2 diabetes mellitus with stage 3b chronic kidney disease, without long-term current use of insulin ([facility])- Primary Hyperthyroidism Thyrotoxicosis without mention of goiter or other cause, without mention of thyrotoxic crisis or storm Cerebral aneurysm, nonruptured (HHS/HCC) Cerebral aneurysm, nonruptured H/O mechanical aortic valve replacement Heart valve replaced by other means intermediate (current) use of anticoagulants Long-term (current) use of anticoagulants Need for immunization against influenza Need for prophylactic vaccination and inoculation against influenza documented in this encounter Additional Health Concerns Assessment Noted Time PHQ-9 Depression Total Score: 13 023 3:56 PM CDT documented as of this encounter Care Teams Senior Librarian Relationship Specialty Start Date End Date Sanjeev Webster DO [address] [place] [address] PCP - General FAMILY PRACTICE 09/25/20 Dianne Johnson, RN [address] [place] [address] Textile Conversion Manager (Ambulatory) REGISTERED NURSE 08/14/20 documented as of this encounter
--- OUTSIDE RECORDS SUMMARY | 2024-03-15 00:57 | XMS_ITS | Encounter Summary ---
Author Organization [facility] Address [facility] [place] [address] [place] [address] Care Team Providers Care Frame Trimmer Name Role Phone Dianne Johnson RN Unavailable [phone] Sanjeev Webster DO Primary Care Provider + Reason for Referral * Consultation (Routine) - Canceled Specialty Diagnoses / Procedures Referred By Contac t Referred To Contact ENDOCRINOLOGY Diagnoses Secondary hyperparathyroidism of renal origin ([facility]) Hyperthyroidism Iodine-induced hyperthyroidism Procedures OFFICE/OUTPATIENT NEW LOW MDM 30-44 MINUTES OFFICE/OUTPT VISIT,NEW,LEVL IV OFFICE/OUTPT VISIT,NEW,LEVL V OFFICE/OUTPT VISIT,EST,LEVL III OFFICE/OUTPT VISIT,EST,LEVL IV OFFICE/OUTPT VISIT,EST,LEVL V Sanjeev Webster DO [address] [place] [address] Phone: tel: fax: [facility] [address] [place] [address] Phone: tel: fax: Referral ID Status Reason Start Date Expiration Date V isits Requested Visits Authorized [id number] Canceled 01/21/2023 01/22/2024 12 12 Scheduling Instructions APPT 02/02/2023 Reason for Visit * Reason Onset Date Comments Referral 12/31/2022 Encounter Details Date Type Department Care Team (Late st Contact Info) Description 12/31/[address] [facility] Diabetes and Endocrinology - [place] [address] [place] [address] Panda Moreno MD Referral Social History Tobacco Use Types Packs/Day [...] you are drinking? Patient does not drink 3 Q3: How often do you have si x or more drinks on one occasion? Never 08/26/2022 Overall Financial Resource Strain (CARDIA) Answe r Date Recorded How hard is it for you to pa y for the very basics like food, housing, medical care, and heating? Hard 08/26/2022 PHQ-2 Answer Date Recorded Patient Health Questionnaire-2 Score 6 12/11/2022 [facility] - [...] Progress Notes * Yenifer Ingram MA - 01/01/2023 3:14 PM CDT Referral placed * Waleska Gonzalez - 12/31/2022 1:59 PM CDT New request - referral Follow up visit 02/02/23 Speciality - Endocrinology and Diabetes Physician- Dr Moreno Dx - N25.81,E05.90 documented in this encounter Plan of Treatment Upcoming Encounters Date Type Department Care Team (Late st Contact Info) Description 04/14/2024 2:00 PM ARCHITECTURAL DRAFTSMAN Office Visit [facility] Multispecialty Care - [facility] [address] [facility], [address] [place] [address] Julio Pulido MD [address] [place] [address] Scheduled Referrals Name Type Priority Associated Diagnoses Orde r Schedule Ambulatory referral to Endocrinology ([facility] [place]) Referral Routine Secondary hyperparathyroidism of renal origin ([facility]) Hyperthyroidism Iodine-induced hyperthyroidism Ordered: 01/01/2023 documented as of this encounter Goals Goal Patient Goal Type Associated Problems Recent Progress Patient-Stated? Author Health - patient able to perform ADLs independently General On track(2023 9:49 AM CDT) Dianne Corona, RN Note: 12/17/23: Patient stated she is independent with ASL's. Establish Plan for Symptom Monitoring-CHF General On track(2023 11:36 AM ARCHITECTURAL DRAFTSMAN) Dianne Corona, RN Note: Patient will recognize [...] Symptom Monitoring-COPD General On track(2023 11:36 AM ARCHITECTURAL DRAFTSMAN) Dianne Corona, RN Note: Patient will recognize [...] Symptom Monitoring-DM General On track(2023 4:33 PM ARCHITECTURAL DRAFTSMAN) Dianne Corona RN Note: Patient will manage [...] Symptom Monitoring-HTN General On track(2023 4:33 PM ARCHITECTURAL DRAFTSMAN) Dianne Corona RN Note: Patient will monitor B/P several times per week , record readings and report to physician or CC if B/P consistently >130/80 Take your medications as prescribed. Follow up with your provider as scheduled. Take your blood pressure at least several times a week if able. documented as of this encounter Visit Diagnoses Diagnosis Secondary hyperparathyroidism of renal origin ([facility])- Primary Secondary hyperparathyroidism (of renal origin) Hyperthyroidism Thyrotoxicosis without mention of goiter or other cause, without mention of thyrotoxic crisis or storm Iodine-induced hyperthyroidism Thyrotoxicosis without mention of goiter or other cause, without mention of thyrotoxic crisis or storm documented in this encounter Additional Health Concerns Assessment Noted Time PHQ-9 Depression Total Score: 13 023 3:56 PM CDT documented as of this encounter Care Teams Frame Trimmer Relationship Specialty Start Date End Date Sanjeev Webster DO [address] [place] [address] PCP - General FAMILY PRACTICE 09/25/20 Dianne Johnson, RN [address] [place] [address] Electrical Instrumentation Technician (Ambulatory) REGISTERED NURSE 08/14/20 documented as of this encounter
--- OUTSIDE RECORDS SUMMARY | 2024-03-15 00:57 | XMS_ITS | Encounter Summary ---
Author Organization [facility] Address Replaced by [facility] [place] [address] [place] [address] Care Team Providers Care Garbage Depot Worker Name Role Phone Dianne Johnson RN Unavailable [phone] Sanjeev Montez DO Primary Care Provider + Reason for Visit * Reason Onset Date Comments Medication Request 12/15/2022 Med Refills 12/15/2022 Encounter Details Date Type Department Care Team (Late st Contact Info) Description 12/15/2022 Telephone [facility] Medical [facility] Family & Internal Medicine [place] [address] [place] [address] Sanjeev Montez DO [address] [place] [address] Medication Request; Med Refills Social History Tobacco Use Types Packs/Day Years [...] How often do you attend chur or druze services? More than 4 times [...] Progress Notes * Yenifer Ingram MA - 12/17/2022 2:28 PM CDT Spoke with patient and informed her the prescription was sent yesterday. She v/u and will call the pharmacy. * Yenifer Batista - 12/17/2022 12:38 PM CDT Radha called in about the status of her Hydrocodone script. [facility] [phone] * Sanjeev Montez DO - 12/16/2022 10:18 AM CDTAddended by: SANJEEV MONTEZ on: 12/16/2022 10:18 AM Modules accepted: Orders * Scarlett Elias MA - 12/16/2022 9:57 AM CDTAddended by: SCARLETT ELIAS on: 12/16/2022 09:57 AM Modules accepted: Orders * Dipti Shay - 12/15/2022 2:40 PM CDT Refill request: Radha Huynh a patient of Sanjeev Montez DO requests a refill of HYDROcodone-acetaminophen (NORCO) 10-325 MG tablet The patient would like this sent to the following pharmacy: [facility] [address] [place] [address] [address] [facility] [address] [facility] [address] The next office visit: Next visit with SANTINOBAMAMERICOSANJEEV DURAN in FAMILY PRACTICE is on: 12/19/2022 in [facility] The last office visit: Last visit with SANJEEV MONTEZ in FAMILY PRACTICE was on: 11/03/2022 in [facility] Additional Information: documented in this encounter Plan of Treatment Upcoming Encounters Date Type Department Care Team (Late st Contact Info) Description 04/14/2024 2:00 PM SANITARY INSPECTOR Office Visit [facility] Medical Group Multispecialty Care - [facility] [address] [facility], [address] [place] [address] Julio Pulido MD [address] [place] [address] documented as of this encounter Goals Goal Patient Goal Type Associated Problems Recent Progress Patient-Stated? Author Health - patient able to perform ADLs independently General On track(2023 9:49 AM CDT) Dianne Corona, DALE Note: 12/17/23: Patient stated she is independent with ASL's. Establish Plan for Symptom Monitoring-CHF General On track(2023 11:36 AM SANITARY INSPECTOR) Dianne Corona, RN Note: Patient will [...] Symptom Monitoring-COPD General On track(2023 11:36 AM SANITARY INSPECTOR) Dianne Corona RN Note: Patient will [...] Symptom Monitoring-DM General On track(2023 4:33 PM SANITARY INSPECTOR) Dianne Corona RN Note: Patient will [...] Symptom Monitoring-HTN General On track(2023 4:33 PM SANITARY INSPECTOR) Dianne Corona RN Note: Patient will [...] documented as of this encounter Care Teams Garbage Depot Worker Relationship Specialty Start Date End Date Sanjeev Montez DO [address] [place] [address] PCP - General FAMILY PRACTICE 09/25/20 Dianne Johnson, RN [address] [place], [place] [address] Photographic Process Attendant (Ambulatory) REGISTERED NURSE 08/14/20 documented as of this encounter
--- OUTSIDE RECORDS SUMMARY | 2024-03-15 00:57 | XMS_ITS | Encounter Summary ---
Author Organization [facility] Address [facility]ly [facility] [place] [address] [place] [address] Care Team Providers Care Deputy Controller Name Role Phone Dianne Johnson RN Unavailable [phone] Sanjeev Webster DO Primary Care Provider + Encounter Details Date Type Department Care Team (Latest Contact Info) Description 11/03/2022 Scan HEALTH INFO SRVCS Scanned, Doc Med [...] often do you attend chur ch or sabianist services? More than 4 times [...] Recorded Patient Health Questionnaire-2 Score 6 12/11/2022 [facility] Occupat ional [...] Contact Info) Description 04/14/2024 2:00 PM BOX SPRING MAKER Office Visit [facility] Medical Group Multispecialty Care - [facility] [address] [facility], [address] [place] [address] Julio Pulido MD [address] [place] [address] documented as of this encounter Goals Goal Patient Goal Type Associated Problems Recent Progress Patient-Stated? Author Health - patient able to perform ADLs independently General On track(2023 9:49 AM CDT) Dianne Corona RN Note: 12/17/23: Patient stated she is independent with ASL's. Establish Plan for Symptom Monitoring-CHF General On track(2023 11:36 AM BOX SPRING MAKER) Dianne Corona RN Note: Patient will [...] Monitoring-COPD General On track(2023 11:36 AM BOX SPRING MAKER) Dianne Corona RN Note: Patient will [...] Monitoring-DM General On track(2023 4:33 PM BOX SPRING MAKER) Dianne oCrona, RN Note: Patient will manage her diabetes [...] Monitoring-HTN General On track(2023 4:33 PM BOX SPRING MAKER) Dianne Corona, RN Note: Patient will [...] documented as of this encounter Care Teams Deputy Controller Relationship Specialty Start Date End Date Sanjeev Webster DO [address] [place] [address] PCP - General FAMILY PRACTICE 09/25/20 Dianne Johnson RN [address] [place] [address] M1A1 Tank Crewman (Ambulatory) REGISTERED NURSE 6/8/21 documented as of this encounter
--- OUTSIDE RECORDS SUMMARY | 2024-03-15 00:57 | XMS_ITS | Encounter Summary ---
Author Organization [facility] Address [facility] [place] [address] [place] [address] Care Team Providers Care Medical Historian Name Role Phone Dianne Johnson RN Unavailable [phone] Sanjeev Webster DO Primary Care Provider + Reason for Visit * Reason Comments Anticoagulation Encounter Details Date Type Department Care Team (Late st Contact Info) Description 11/25/2022 11:20 AM CDT Allied Health/Nurse Visit [facility] Medical Group Family & Internal Medicine [place] [id number] [place] [address] Sanjeev Webster DO [facility] [place] [address] Anticoagulation Social History Tobacco Use [...] often do you attend chur ch or jew services? More than 4 times [...] Patient Health Questionnaire-2 Score 3 07/08/2022 [facility] of Occupat ional [...] Progress Notes * Sanjeev Webster DO - 11/25/2022 11:20 AM CDT Pt's INR is elevated; I believe pt is taking 8 mg of warfarin daily now. Recommend taking 7 mg on R, F, & Sat and then Sun-W at 8 mg. If my dosing is incorrect, please let me know. Recheck in 1 week regardless. documented in this encounter Plan of Treatment Upcoming Encounters Date Type Department Care Team (Late st Contact Info) Description 04/14/2024 2:00 PM GEOPHYSICAL LABORATORY CHIEF Office Visit [facility] Medical Group Multispecialty Care - [facility] [address] [facility], [address] [place] [phone] Julio Pulido MD 3 [place] [address] documented as of this encounter Goals Goal Patient Goal Type Associated Problems Recent Progress Patient-Stated? Author Health - patient able to perform ADLs independently General On track(2023 9:49 AM CDT) No Dianne Johnson RN Note: 12/17/23: Patient stated she is independent with ASL's. Establish Plan for Symptom Monitoring-CHF General On track(2023 11:36 AM GEOPHYSICAL LABORATORY CHIEF) Dianne Corona RN Note: Patient will recognize [...] Monitoring-COPD General On track(2023 11:36 AM GEOPHYSICAL LABORATORY CHIEF) Dianne Corona RN Note: Patient will recognize [...] Monitoring-DM General On track(2023 4:33 PM GEOPHYSICAL LABORATORY CHIEF) Dianne Corona RN Note: Patient will manage [...] Monitoring-HTN General On track(2023 4:33 PM GEOPHYSICAL LABORATORY CHIEF) Dianne Corona RN Note: Patient will monitor [...] Associated Diagnosis Comments PROTHROMBIN TIME, VENOUS Routine 11/25/2022 3:08 PM CDT Current use of anticoagulant therapy COLLECT.CAPILLARY (FNGR,HEEL,EAR) Routine 11/25/2022 11:59 AM CDT Current use of anticoagulant therapy COLLECTION VENOUS BLOOD VENIPUNCTURE Routine 11/25/2022 11:59 AM CDT Current use of anticoagulant therapy PROTHROMBIN TIME, FINGERSTICK Routine 11/25/2022 Current use of anticoagulant therapy documented in this encounter Results * (ABNORMAL) PROTIME/INR, VENOUS (11/25/2022 3:08 PM CDT) PROTIME 37.0(H) 9.3 - 11.6 SEC 11/25/2022 4:53 PM CDT [facility] INR 3.9(H) 0.9 - 1.1 11/25/2022 4:53 PM CDT [facility] Comment: TREATMENT OR PROPHYLAXIS AGAINST: ?? THERAPEUTIC RANGE (INR): ?VENOUS THROMBOSIS ? 2.0-3.0 ?PULMONARY EMBOLUS ? 2.0-3.0 ?? MECHANICAL PROSTHETIC VALVES ? 2.5-3.5 11/25/2022 3:08 PM CDT us Sanjeev Webster DO LABORATORY Final Re sult -[facility] [address] [facility] [address], * PROTIME/INR, FINGERSTICK (11/25/2022) INR WHOLE BLOOD 4.20 [facility] Comment:Venous drawn 11/25/2022 Sanjeev Webster DO LABORATORY Final Re sult [facility] [address] [place] [address], documented in this encounter Visit Diagnoses Diagnosis Current use of anticoagulant therapy- Primary documented in this encounter Additional Health Concerns Assessment Noted Time PHQ-9 Depression Total Score: 3 12/24/19 22 11:48 AM CDT documented as of this encounter Care Teams Medical Historian Relationship Specialty Start Date End Date Sanjeev Webster DO [address] [place] [address] PCP - General FAMILY PRACTICE 09/25/20 Dianne Johnson, RN [address] [place], [place] [address] Hydraulics Engineer (Ambulatory) REGISTERED NURSE 08/14/20 documented as of this encounter
--- OUTSIDE RECORDS SUMMARY | 2024-03-15 00:57 | XMS_ITS | Encounter Summary ---
Author Organization [facility] Address [facility] [address] [place] [address] Care Team Providers Care Contamination Consultant Name Role Phone Casey Johnson RN Unavailable [phone] Sanjeev Webster DO Primary Care Provider + Reason for Visit * Reason Onset Date Comments Care Management 12/11/2022 Encounter Details Date Type Department Care Team (Late st Contact Info) Description 12/11/2022 Patient Outreach [facility] Medical Group Family & Internal Medicine [address] [address] Casey Johnson, RN [address] [place] [address] Care Management Social History Tobacco [...] Recorded Patient Health Questionnaire-2 Score 6 12/11/2022 [facility] Occupat ional Health - Occupational [...] Progress Notes * Casey Johnson RN - 12/11/2022 3:45 PM CDT Chronic Care Management: Patient Status: Contacted patient today to remind her of INR scheduled tomorrow at 10:20 am. Patient stated she is aware and plans on getting this done. Denies any issues with bleeding. Reports nose bleed last week which didn't last long. Stated nose bled for a little bit and stopped. Denies any issues with COPD or CHF exacerbations at this time. Encouraged patient to call at the onset of any changes to help prevent a hospital admission. Patient verbalizes understanding. Patient not taking any medications for DM and doesn't follow a DM diet. She is not checking her FBS. Stated she is hooked on pop tarts but knows she shouldn't be eating them. Reports snacking a lotand not eating a well balanced meal. She has chronic back pain which she takes hydrocodone prn. Patient stated she's been depressed for two months now. She takes 3 to 4 hour naps in the day time twice a day and has no issues sleeping at night, pushes self to do things. Stopped going to [facility] on Wednesdays, stopped going to mu-ism, doesn't go anywhere and stays at home. She denies SI or HI. Stated she would never hurt herself and she doesn't want to see a Psychiatrist. She informed the ladies at [facility] she is depressed and told Izzy her daughter in law. Stated she told Izzy she needs another nerve pill. Izzy told her she has to go by the prescription. Patient scheduled for INR tomorrow. She is wanting to be seen before 01/12/23 to discuss the above. Message sent to nursing team. Encouraged patient to seek medical attention right away if she has any s/s of SI. Patient stated she doesn't feel that way at all. PHQ2/9 Score Patient Health Questionnaire-2 Score: 6 Patient Health Questionnaire-9 Score: 13 Plan of Care: acquisition marketing coordinator will continue to follow up [...] Future Appointments Date Time Provider Department Center 12/12/2022 10:20 AM [facility] 01/12/2023 9:20 AM Sanjeev Webster, M[facility]MMRVL [facility] 01/16/2023 9:15 AM San[facility] 02/02/2023 11:40 AM Panda Moreno MD [facility] Quality care gaps: Health Maintenance Topic Date Due Kidney Health Evaluation Never done ASCVD Statin Never done Annual Medicare Wellness Visit Never done Lipid Panel 08/29/2022 ASCVD LDL 08/29/2022 Influenza Adult (1) 12/07/2022 Hemoglobin A1C 01/07/2023 Zoster Vaccines (1 of 2) 03/31/2023 (Originally 02/19/2016) COVID-19 Vaccine (5 - Pfizer series) 03/31/2023 (Originally 10/24/2021) Diabetes: Retinopathy Eye Exam 04/21/2024 DTaP, Tdap and Td Vaccines (4 - Td or Tdap) 09/05/2030 DEXA SCAN (GENERAL) Completed Pneumococcal Vaccine: 65+ Years Completed Hepatitis C Completed Meningococcal Vaccine Aged Out Problem List: Patient Active Problem List Diagnosis Abnormal stress test Chronic anticoagulation Coronary artery disease involving [place] coronary artery of [place] heart without angina pectoris Dyspnea on exertion H/O mechanical aortic valve replacement Hypertensive heart disease with congestive heart failure ([facility]/HCC) ([facility]) LBBB (left bundle branch block) Myopathy VAZQUEZ (obstructive sleep apnea) Paroxysmal atrial flutter ([facility]/HCC) ([facility]) Benign hypertension with CKD (chronic kidney disease) stage III ([facility]) Memory deficits Hearing deficit, bilateral History of cataract extraction, unspecified laterality Vitamin D deficiency Hypercalcemia Chronic frontal sinusitis Constipation, unspecified constipation type Chronic bilateral low back pain without sciatica Iron deficiency anemia, unspecified iron deficiency anemia type Disorder of skin of trunk Anemia Body mass index (BMI) 31.0-31.9, adult 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[facility]/HCC) Benign hypertension with stage 3b chronic kidney disease ([facility]/HCC) Cobalamin deficiency Compression fracture of thoracic vertebra ([facility]/HCC) ([facility]) Depression Diabetic polyneuropathy ([facility]) ([facility]) Disorder of rotator cuff Diverticular disease Dysphagia Elevated troponin Gastroesophageal reflux disease without esophagitis Hyperlipidemia, unspecified hyperlipidemia type Vascular dementia ([facility]) Unknown and unspecified causes of morbidity Syncope, unspecified syncope type Senile purpura ([facility]) Wrist joint pain Respiratory illness Requires lifelong warfarin therapy Secondary hyperparathyroidism ([facility]) ([facility]) Presence of prosthetic heart valve Plantar fascial fibromatosis Peripheral neuropathy Parathyroid adenoma Polymyalgia rheumatica ([facility]) ([facility]) Osteoporosis Numbness Muscle cramps Closed stable burst fracture of sixth thoracic vertebra, initial encounter ([facility]) ([facility]) Chest pain Contusion of scalp Knee pain Localized, primary osteoarthritis Osteoarthritis of knee Traumatic closed displaced fracture of distal end of radius Shoulder joint pain Hyperlipidemia associated with type 2 diabetes mellitus ([facility]) ([facility]) PVD (peripheral vascular disease) ([facility]) Hematoma Anxiety Diastolic heart failure ([facility]) ([facility]) Internal hemorrhoids Leukoencephalopathy Major depression single episode, in partial remission ([facility]) Metacarpal bone fracture Mitral valve disorder Purpura ([facility]) Peripheral arterial occlusive disease ([facility]) Primary osteoarthritis involving multiple joints Vision loss COPD (chronic obstructive pulmonary disease) ([facility]) ([facility]) Diarrhea Drug-induced constipation H/O mechanical aortic valve replacement Age-related osteoporosis with current pathological fracture Care Management Physical deconditioning Chronic heart failure with preserved ejection fraction (HFpEF) ([facility]) ([facility]) Paroxysmal atrial fibrillation ([facility]) ([facility]) Hypertension associated with type 2 diabetes mellitus ([facility]) ([facility]) Encounter for prophylactic measures, unspecified Graves' disease Cirrhosis of liver without ascites, unspecified hepatic cirrhosis type ([facility]) ([facility] Stage 3b chronic kidney disease ([facility]) OLIVE (acute kidney injury) ([facility]) Medications: Current Outpatient Medications [...] 20 Time spent performing chart review (minutes): 9 Total time (minutes): 29 CASEY JOHNSON RN I reviewed the patient's status and education provided by CASEY JOHNSON RN. I agree with the findings and recommendations made. Cosigned by Sanjeev Webster DO at 12/14/2022 4:20 PM CDT documented in this encounter Plan of Treatment Upcoming Encounters Date Type Department Care Team (Late st Contact Info) Description 04/14/2024 2:00 PM OIL FIELD WORKER Office Visit [facility] Medical Group Multispecialty Care - [facility] [address] [facility], [address] [place] [phone] Julio Pulido MD [address] [place] [address] documented as of this encounter Goals Goal Patient Goal Type Associated Problems Recent Progress Patient-Stated? Author Health - patient able to perform ADLs independently General On track(2023 9:49 AM CDT) Casey Corona RN Note: 12/17/23: Patient stated she is independent with ASL's. Establish Plan for Symptom Monitoring-CHF General On track(2023 11:36 AM OIL FIELD WORKER) Casey Corona RN Note: Patient will recognize [...] Symptom Monitoring-COPD General On track(2023 11:36 AM OIL FIELD WORKER) Casey Corona RN Note: Patient will recognize [...] Symptom Monitoring-DM General On track(2023 4:33 PM OIL FIELD WORKER) Casey Corona RN Note: Patient will manage [...] Symptom Monitoring-HTN General On track(2023 4:33 PM OIL FIELD WORKER) Casey Corona RN Note: Patient will monitor [...] Chronic obstructive pulmonary disease, unspecified COPD type ([facility])- Primary Chronic heart failure with preserved ejection fraction (HFpEF) ([facility]) Type 2 diabetes mellitus with stage 3b chronic kidney disease, without long-term current use of insulin ([facility]) documented in this encounter Additional Health Concerns Assessment Noted Time PHQ-9 Depression Total Score: 13 023 3:56 PM CDT documented as of this encounter Care Teams Contamination Consultant Relationship Specialty Start Date End Date Sanjeev Webster DO [address] [place] [address] PCP - General FAMILY PRACTICE 09/25/20 Casey Johnson, RN [address] [place] [address] Pin Drafter Operator (Ambulatory) REGISTERED NURSE 08/14/20 documented as of this encounter
--- OUTSIDE RECORDS SUMMARY | 2024-03-15 00:57 | XMS_ITS | Encounter Summary ---
Author Organization [facility] Address [facility]6 [facility] [place] [address] [place] [address] Care Team Providers Care Punch Box Tender Name Role Phone Casey Johnson RN Unavailable [phone] Sanjeev Webster DO Primary Care Provider + Reason for Visit * Reason Onset Date Comments Care Management 01/21/2023 Encounter Details Date Type Department Care Team (Late st Contact Info) Description 01/21/2023 Patient Outreach [facility] Medical Group Family & Internal Medicine [address] [address] Casey Johnson, RN [address] [place] [address] Care Management Social History Tobacco [...] Progress Notes * Casey Johnson RN - 01/21/2023 7:29 AM CST Chronic Care Management: Patient Status: Reviewed patient's chart today. She missed appointment with on 01/16/23 at the [facility] in [place]. Contacted patient to inform she missed appointment with on 01/16/23. Patient stated she is scheduled to see so many specialist she is getting confused about the appointments. Informed patient that CC will contact 's office and reschedule appointment. CC will give patient r yolanda when she is scheduled to see a specialist prior to appointment. Patient verbalizes understanding. Stated for the past two days she was sick to her stomach. Reports leg weakness for not moving around. Stated she is better this morning and declines being seen today. Denies s/s of CHF or COPDexacerbation s/s. Patient is using her albuterol inhaler prn. Encouraged patient to call CC at the onset of any changes. Patient requesting a call back after noon to go over appointments. She did notcheck her mail yesterday and hasn't received letter CC mailed out to her regarding appointment with. Patient is up-to-date on A1C. Ref Range & Units 01/12/23 HGB A1C % 6.2 01/21/23: Patient scheduled to see on 02/03/23 at 1:00 PM in [place]. Contacted [facility] referral department requesting referral to be extended out. Currently referral expires in March. She will extend referral until September 2023. 01/21/23: Attempted to contact 's office to get update on appointment status. No answer at this time. Will try again after 8:00 am. 01/21/23: Contacted Emilee at 's office. An appointment hasn't been made at this time.Attempted to schedule an appointment and Emilee stated she is busy checking out a patient. She is requesting CC call her back in 5 minutes. 01/21/23: Left message for the scheduling department at 's office to return CC phone callto get patient scheduled. 01/21/23: Contacted Gage at 's office requesting to cx appointment with on 02/02/23 since he is leaving. Patient is aware. She will be f/u with instead. 01/21/23: Contacted Mary Beth at 's office to reschedule appointment. is atthe [place] office every other Thursday only. Appointment scheduled for 02/27/23 at 12:00 PM. Arrive 15 minutes early to [facility] Medical group building at [address] [place] [address]. If patient needs to reschedule call [phone]. 01/21/23: Contacted 's office and spoke to Emiele. Scheduled appointment for 04/29/23 at 2:00 PM at [address] If patient needs to reschedule call [phone]. 01/21/23: Left message for patient to return phone call. 01/21/23: Contacted patient regarding appointments above. Since CC scheduled appointments this morning a letter was sent to patient stating she was referred to [facility] Endocrinology. Patient stated she does not drive to [facility] and prefers to see Refractory Tile Helper in [place]. Gave patient the above appointment details. CC unable to reach the referral department at this time. Will reach out again tomorrow regarding letter sent out to patient today. 01/22/23: Contacted Maddison in the referral department. Informed CC made appointment with on 04/29/23 and rescheduled appointment with on 02/27/23. Maddison will attach appointmentdetails to referral. She is asking office to cx referral placed to [facility] on 01/01/23 and keep referral in place for on 12/19/22. Message sent to and nursing team. See below for details. Patient confused about keeping track of all her upcoming appointment's with specialist. community health coordinator contacted 's office yesterday morning and scheduled appointment for 04/29/23 at 2:00 PM. Informed patient last night CC will send her a letter regarding appointment and giveher a friendly reminder prior to appointment. After reviewing her chart a letter was sent out to patient last night regarding referral to [facility] Refractory Tile Helper. Patient unable to drive to [facility]. Please cancel referral for u Endocrinology placed on 01/01/23. Patient prefers to see Endo in [place]. Patient missed appointment with on 01/16/23. CC rescheduled appointment for 02/27/23 at 12:00 PM. Patient aware of appointment, CC will send patient a reminder letter in the mail today and give her a friendly reminder call prior to appointment. Please cx referral to [facility] Endo placed on 01/01/23 if ok with . Patient prefers to see in [place].Keep referral for placed 12/19/22. Unable to drive to [facility]. See note for details. Thank you. 01/22/23: Contacted patient today. She is doing better and in good spirits. She is aware CC requested Endo at [facility] be cx. CC will mail patient appointment reminders today for and . Patient confirmed she received letter in the mail from regarding appointment with on 02/03/23 at 1:00 PM. Encouraged patient to call CC at the onset of any changes or if she has any questions, concerns or needs an appointment. Plan of Care: community health coordinator will [...] Provider Department Center 02/16/2023 10:40 AM Sanjeev Webster DO FMMRVL [facility] 02/27/2023 12:00 PM Sania Gomez MD [facility] 03/03/2023 1:[address] 1 SEOCT [facility] ALEX Quality care gaps: Health Maintenance Topic Date Due Kidney Health Evaluation Never done ASCVD Statin Never done RSV Immunization or 60+ Years (1 - 1-dose 60+ series) Never done Annual Medicare Wellness Visit Never done Lipid Panel 08/29/2022 ASCVD LDL 08/29/2022 COVID-19 Vaccine (2022- season) 2022 Zoster Vaccines (3 of 3) [...] test Chronic anticoagulation Coronary artery disease involving fed[place] coronary artery of [place] heart without angina pectoris Dyspnea on exertion H/O mechanical aortic valve replacement Hypertensive heart disease with congestive heart failure ([facility]) ([facility]) LBBB (left bundle branch block) Myopathy VAZQUEZ (obstructive sleep apnea) Paroxysmal atrial flutter ([facility]) ([facility]) Benign hypertension with CKD (chronic kidney disease) stage III ([facility]) Memory deficits Hearing deficit, bilateral History of cataract extraction, unspecified laterality Vitamin D deficiency Hypercalcemia Chronic frontal sinusitis Constipation, unspecified constipation type Chronic bilateral low back pain without sciatica Iron deficiency anemia, unspecified iron deficiency anemia type Disorder of skin of trunk Anemia Body mass index (BMI) 31.0-31.9, adult 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[facility]) Benign hypertension with stage 3b chronic kidney disease ([facility]) Cobalamin deficiency Compression fracture of thoracic vertebra ([facility]) ([facility]) Depression Diabetic polyneuropathy ([facility]) ([facility]) Disorder of rotator cuff Diverticular disease Dysphagia Elevated troponin Gastroesophageal reflux disease without esophagitis Hyperlipidemia, unspecified hyperlipidemia type Vascular dementia ([facility]) Unknown and unspecified causes of morbidity Syncope, unspecified syncope type Wrist joint pain Respiratory illness Requires lifelong warfarin therapy Secondary hyperparathyroidism ([facility]) ([facility]) Presence of prosthetic heart valve Plantar fascial fibromatosis Peripheral neuropathy Parathyroid adenoma Polymyalgia rheumatica ([facility]) ([facility]) Osteoporosis Numbness Muscle cramps Closed stable burst fracture of sixth thoracic vertebra, initial encounter ([facility]) ([facility]) Chest pain Contusion of scalp Knee pain Localized, primary osteoarthritis Osteoarthritis of knee Traumatic closed displaced fracture of distal end of radius Shoulder joint pain Hyperlipidemia associated with type 2 diabetes mellitus ([facility]) ([facility]) PVD (peripheral vascular disease) ([facility]) Hematoma Anxiety Diastolic heart failure ([facility]) ([facility]) Internal hemorrhoids Leukoencephalopathy Major depression single episode, in partial remission ([facility]) Metacarpal bone fracture Mitral valve disorder Peripheral arterial occlusive disease ([facility]) Primary osteoarthritis involving multiple joints Vision loss COPD (chronic obstructive pulmonary disease) ([facility]) ([facility]) Diarrhea Drug-induced constipation H/O mechanical aortic valve replacement Age-related osteoporosis with current pathological fracture Care Management Physical deconditioning Chronic heart failure with preserved ejection fraction (HFpEF) ([facility]) ([facility]) Paroxysmal atrial fibrillation ([facility]) ([facility]) Hypertension associated with type 2 diabetes mellitus ([facility]) ([facility]) Encounter for prophylactic measures, unspecified Graves' disease Cirrhosis of liver without ascites, unspecified hepatic cirrhosis type ([facility]) ([facility]) Stage 3b chronic kidney disease ([facility]) OLIVE (acute kidney injury) ([facility]) Medications: Current Outpatient [...] with Patient Time spent with patient (minutes): 53 (Comment: Time spent with patient, referral department, 's office, 's office and office.) Time spent performing chart review (minutes): 10 Total time (minutes): 63 CASEY JOHNSON RN I reviewed the patient's status and education provided by CASEY JOHNSON RN. I agree with the findings and recommendations made. Cosigned by Sanjeev Webster DO at 01/22/2023 4:32 PM SPARKER AND PATCHER KER AND PATCHER KER AND PATCHER documented in this encounter Plan of Treatment Upcoming Encounters Date Type Department Care Team (Late st Contact Info) Description 04/14/2024 2:00 PM SPARKER AND PATCHER Office Visit [facility] Multispecialty Care - [facility] [address], [address] [place] [address] Julio Pulido MD [address] [place] [address] documented as of this encounter Goals Goal Patient Goal Type Associated Problems Recent Progress Patient-Stated? Author Health - patient able to perform ADLs independently General On track(2023 9:49 AM CDT) Casey Corona RN Note: 12/17/23: Patient stated she is independent with ASL's. Establish Plan for Symptom Monitoring-CHF General On track(2023 11:36 AM SPARKER AND PATCHER) Casey Corona, RN Note: Patient will recognize [...] Symptom Monitoring-COPD General On track(2023 11:36 AM SPARKER AND PATCHER) Casey Corona, RN Note: Patient will recognize [...] Symptom Monitoring-DM General On track(2023 4:33 PM SPARKER AND PATCHER) Casey Corona RN Note: Patient will manage [...] Symptom Monitoring-HTN General On track(2023 4:33 PM SPARKER AND PATCHER) Casey Corona, DALE Note: Patient will monitor [...] without long-term current use of insulin ([facility])- Primary Chronic heart failure with preserved ejection fraction (HFpEF) ([facility]) Chronic obstructive pulmonary disease, unspecified COPD type ([facility]) documented in this encounter Additional Health Concerns Assessment Noted Time PHQ-9 Depression Total Score: 13 023 3:56 PM CDT documented as of this encounter Care Teams Punch Box Tender Relationship Specialty Start Date End Date Sanjeev Webster DO [address] [place] [address] PCP - General FAMILY PRACTICE 09/25/20 Casey Johnson RN [address] [place] [address] Debridging Machine Operator (Ambulatory) REGISTERED NURSE 08/14/20 documented as of this encounter
--- OUTSIDE RECORDS SUMMARY | 2024-03-15 00:57 | XMS_ITS | Encounter Summary ---
Author Organization [facility] Address [facility] [place] [address] [place] [address] Care Team Providers Care Laminating Press Operator Name Role Phone Dianne Johnson RN Unavailable Sanjeev Webster DO Primary Care Provider + Reason for Visit * Reason Onset Date Comments Care Management 12/17/2022 Appointment Reminder 12/17/2022 Encounter Details Date Type Department Care Team (Late st Contact Info) Description 12/17/2022 Patient Outreach [facility] Family & Internal Medicine [address] [address] Dianne Johnson, RN [address] [place] [address] Care Management; Appointment Reminder Social [...] Progress Notes * Dianne Johnson RN - 12/17/2022 5:23 PM CDT Contacted patient to remind her of appointment on 12/19/22 at 1:20 PM to see . Patientverbalizes understanding. Stating she thought the person who made the appointment told her she was seeing someone else on Thursday. Informed patient she is scheduled to see on 12/19/22 at 1:20 PM according to schedule. Patient thanked for the reminder call. documented in this encounter Plan of Treatment Upcoming Encounters Date Type Department Care Team (Late st Contact Info) Description 04/14/2024 2:00 PM SENIOR EXAMINER Office Visit [facility] Medical Group Multispecialty Care - [address], [address] [place] [address] Julio Pulido MD [address] [place] [address] documented as of this encounter Goals Goal Patient Goal Type Associated Problems Recent Progress Patient-Stated? Author Health - patient able to perform ADLs independently General On track(2023 9:49 AM CDT) Dianne Corona RN Note: 12/17/23: Patient stated she is independent with ASL's. Establish Plan for Symptom Monitoring-CHF General On track(2023 11:36 AM SENIOR EXAMINER) Dianne Corona RN Note: Patient will recognize [...] Monitoring-COPD General On track(2023 11:36 AM SENIOR EXAMINER) Dianne Corona RN Note: Patient will recognize [...] Monitoring-DM General On track(2023 4:33 PM SENIOR EXAMINER) Dianne Corona RN Note: Patient will manage [...] Monitoring-HTN General On track(2023 4:33 PM SENIOR EXAMINER) No Dianne Johnson, RN Note: Patient will [...] documented as of this encounter Care Teams Laminating Press Operator Relationship Specialty Start Date End Date Sanjeev Webster DO [address] [place] [address] PCP - General FAMILY PRACTICE 09/25/20 Dianne Johnson, RN [address] [place] [address] Peoplesoft Taleo Manager (Ambulatory) REGISTERED NURSE 08/14/20 documented as of this encounter
--- OUTSIDE RECORDS SUMMARY | 2024-03-15 00:57 | XMS_ITS | Encounter Summary ---
Author Organization [facility] Address [facility] [facility] [place] [address] [place] [address] Care Team Providers Care Shipfitter Helper Name Role Phone Dianne Johnson RN Unavailable [phone] Sanjeev Webster DO Primary Care Provider + Encounter Details Date Type Department Care Team (Latest Contact Info) Description 12/10/2022 Scan HEALTH INFO SRVCS Scanned, Doc Med [...] often do you attend chur ch or scientologist services? More than 4 times [...] Recorded Patient Health Questionnaire-2 Score 6 12/11/2022 [facility] [...] st Contact Info) Description 04/14/2024 2:00 PM FLOUR BLENDER Office Visit [facility] Medical Group Multispecialty Care - [facility] [address] [facility], [address] [place] [address] Julio Pulido MD [address] [place] [address] documented as of this encounter Goals Goal Patient Goal Type Associated Problems Recent Progress Patient-Stated? Author Health - patient able to perform ADLs independently General On track(2023 9:49 AM CDT) Dianne Corona RN Note: 12/17/23: Patient stated she is independent with ASL's. Establish Plan for Symptom Monitoring-CHF General On track(2023 11:36 AM FLOUR BLENDER) Dianne Corona RN Note: Patient will [...] Symptom Monitoring-COPD General On track(2023 11:36 AM FLOUR BLENDER) Dianne Corona RN Note: Patient will [...] Symptom Monitoring-DM General On track(2023 4:33 PM FLOUR BLENDER) Dianne Corona, RN Note: Patient will manage [...] Symptom Monitoring-HTN General On track(2023 4:33 PM FLOUR BLENDER) Dianne Corona, RN Note: Patient will [...] documented as of this encounter Care Teams Shipfitter Helper Relationship Specialty Start Date End Date Sanjeev Webster DO [address] [place] [address] PCP - General FAMILY PRACTICE 09/25/20 Dianne Johnson RN [address] [place] [address] Welder Railcar Mechanic (Ambulatory) REGISTERED NURSE 6/8/21 documented as of this encounter
--- OUTSIDE RECORDS SUMMARY | 2024-03-15 00:57 | XMS_ITS | Encounter Summary ---
Author Organization [facility] Address [facility]6 [facility] [place] [address] [place] [address] Care Team Providers Care External Grinder Name Role Phone Dianne Johnson RN Unavailable [phone] Sanjeev Webster DO Primary Care Provider + Reason for Visit * Reason Onset Date Comments Follow Up Call 01/22/2023 Encounter Details Date Type Department Care Team (Late st Contact Info) Description 01/22/2023 Telephone [facility] Family & Internal Medicine [id number] [place] [address] Sanjeev Webster DO [address] [place] [address] Follow Up Call Social History [...] Progress Notes * Sanjeev Webster DO - 01/22/2023 1:08 PM CST That was ordered by Dr. Moreno, so I don't think I can cancel it myself. I'm okay with her going to see Dr. Alexander though. OR ENGINEERING TECH * Dianne Johnson RN - 01/22/2023 9:16 AM CST Patient confused about keeping track of all her upcoming appointment's with specialist. camp coordinator contacted 's office yesterday morning and scheduled appointment for 04/29/23 at 2:00 PM. Informed patient last night CC will send her a letter regarding appointment and giveher a friendly reminder prior to appointment. After reviewing her chart a letter was sent out to patient last night regarding referral to [facility] Motorcycle Repair Shop Supervisor. Patient unable to drive to [facility]. Please cancel referral for [facility] Endocrinology placed on 01/01/23. Patient prefers to see Endo in [place]. Patient missed appointment with on 01/16/23. CC rescheduled appointment for 02/27/23 at 12:00 PM. Patient aware of appointment, CC will send patient a reminder letter in the mail today and give her a friendly reminder call prior to appointment. OR ENGINEERING TECH documented in this encounter Plan of Treatment Upcoming Encounters Date Type Department Care Team (Late st Contact Info) Description 04/14/2024 2:00 PM SENIOR ENGINEERING TECH Office Visit [facility] Multispecialty Care - [address] [place] [address] Julio Pulido MD [address] [place] [address] documented as of this encounter Goals Goal Patient Goal Type Associated Problems Recent Progress Patient-Stated? Author Health - patient able to perform ADLs independently General On track(2023 9:49 AM CDT) Dianne Corona RN Note: 12/17/23: Patient stated she is independent with ASL's. Establish Plan for Symptom Monitoring-CHF General On track(2023 11:36 AM SENIOR ENGINEERING TECH) Dianne Corona RN Note: Patient will recognize [...] Monitoring-COPD General On track(2023 11:36 AM SENIOR ENGINEERING TECH) Dianne Corona RN Note: Patient will recognize [...] Monitoring-DM General On track(2023 4:33 PM SENIOR ENGINEERING TECH) Dianne Corona RN Note: Patient will manage [...] Monitoring-HTN General On track(2023 4:33 PM SENIOR ENGINEERING TECH) No Dianne Johnson RN Note: Patient will [...] documented as of this encounter Care Teams External Grinder Relationship Specialty Start Date End Date Sanjeev Webster DO [address] [place] [address] PCP - General FAMILY PRACTICE 09/25/20 Dianne Johnson RN [address] [place] [address] Film Recordist (Ambulatory) REGISTERED NURSE 08/14/20 documented as of this encounter
--- OUTSIDE RECORDS SUMMARY | 2024-03-15 00:57 | XMS_ITS | Encounter Summary ---
Author Organization [facility] Address [facility] [place] [address] [place] [address] Care Team Providers Care Supervisor Pairing And Inspecting Name Role Phone Dianne Johnson RN Unavailable [phone] Sanjeev Webster DO Primary Care Provider + Encounter Details Date Type Department Care Team (Latest Contact Info) Description 12/04/2022 Travel Social History Tobacco Use Types Packs/Day [...] Recorded Patient Health Questionnaire-2 Score 3 07/08/2022 [facility] [...] st Contact Info) Description 04/14/2024 2:00 PM SWIMMING POOL SERVICEPERSON Office Visit [facility] Multispecialty Care - [facility] [address], [address] [place] [address] Julio Pulido MD 3 [place] [address] documented as of this encounter Goals Goal Patient Goal Type Associated Problems Recent Progress Patient-Stated? Author Health - patient able to perform ADLs independently General On track(2023 9:49 AM CDT) Dianne Corona RN Note: 12/17/23: Patient stated she is independent with ASL's. Establish Plan for Symptom Monitoring-CHF General On track(2023 11:36 AM SWIMMING POOL SERVICEPERSON) Dianne Corona RN Note: Patient will recognize [...] Symptom Monitoring-COPD General On track(2023 11:36 AM SWIMMING POOL SERVICEPERSON) Dianne Corona RN Note: Patient will recognize [...] Symptom Monitoring-DM General On track(2023 4:33 PM SWIMMING POOL SERVICEPERSON) Dianne Corona RN Note: Patient will manage [...] Symptom Monitoring-HTN General On track(2023 4:33 PM SWIMMING POOL SERVICEPERSON) Dianne Corona, RN Note: Patient will monitor [...] as of this encounter Care Teams Supervisor Pairing And Inspecting Relationship Specialty Start Date End Date Sanjeev Webster DO [address] [place] [id number] PCP - General FAMILY PRACTICE 09/25/20 Dianne Johnson, RN [address] [place] [address] Lead Miner Blasting (Ambulatory) REGISTERED NURSE 08/14/20 documented as of this encounter
--- OUTSIDE RECORDS SUMMARY | 2024-03-15 00:57 | XMS_ITS | Encounter Summary ---
Author Organization [facility] Address [facility] [place] [address] [place] [address] Care Team Providers Care Doctor'S Assistant Name Role Phone Casey Johnson RN Unavailable [phone] Sanjeev Webster DO Primary Care Provider + Reason for Visit * Reason Onset Date Comments Care Management 02/03/2023 Appointment Reminder 02/03/2023 Encounter Details Date Type Department Care Team (Late st Contact Info) Description 02/03/2023 Patient Outreach [facility] Family & Internal Medicine [address] [address] Casey Johnson, RN [address] [place] [address] Care Management; Appointment Reminder Social [...] How often do you attend chur or pentecostal services? More than 4 times [...] Progress Notes * Casey Johnson RN - 02/03/2023 7:14 AM CST Chronic Care Management: Patient concerns or urgent matters that need addressed: Non identified during this Patient Status: Contacted patient to remind her of the following appointment. She forgot about this about today. She did received reminder letters from CC regarding her upcoming appointments. She will find the letter and requested CC call her back in about 5 minutes. Appointment with on 02/03/23 at 1:00 PM . His office address is [address] [place] [address]. 's office number [phone]. 02/03/23: Contacted patient back and she found the reminder appointment letter but can barely see it. She missed placed her reading glasses. Informed patient that CC will contact 's office and have someone call her with directions to office. 02/03/23: Contacted Amina at 's office. She will try calling patient now and give her directions to 's office in [place]. 02/03/23: Contacted patient and she stated Amina at 's office called her to inform office is located across the street from [facility] in [place]. Patient denies any issues with CHF or COPD exacerbations. Encouraged patient to contact CC at the onset of any changes to help prevent hospitalization. Patient stated she is weighing herself every morning. Reports weight may fluctuate a little. Encouraged to call CC if she develops a 3 lb weight gain over night. Patient verbalizes understanding. Last A1C 6.2 % completed on 01/12/23. Denies any issues at present. Plan of Care: flight operations coordinator will continue to follow up by [...] Center 02/16/2023 10:40 AM Sanjeev Webster DO MGFMMRVL [facility] 02/27/2023 12:00 PM Sania Gomez MD [facility] 03/03/2023 1:[address] 1 SEOCT [facility] ALEX Quality care gaps: Health Maintenance Topic [...] test Chronic anticoagulation Coronary artery disease involving [place] coronary artery of [place] heart without angina pectoris Dyspnea on exertion H/O mechanical aortic valve replacement Hypertensive heart disease with congestive heart failure ([facility]) ([facility]) LBBB (left bundle branch block) Myopathy VAZQUEZ (obstructive sleep apnea) Paroxysmal atrial flutter ([facility]) ([facility]) Benign hypertension with CKD (chronic kidney disease) stage III ([facility]) Memory deficits Hearing deficit, bilateral History of cataract extraction, unspecified laterality Vitamin D deficiency Hypercalcemia Chronic frontal sinusitis Constipation, unspecified constipation type Chronic bilateral low back pain without sciatica Iron deficiency anemia, unspecified iron deficiency anemia type Disorder of skin of trunk Anemia Body mass index (BMI) 31.0-31.9, adult 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[facility]) Benign hypertension with stage 3b chronic kidney disease ([facility]) Cobalamin deficiency Compression fracture of thoracic vertebra ([facility]) ([facility]) Depression Diabetic polyneuropathy ([facility]) ([facility]) Disorder of rotator cuff Diverticular disease Dysphagia Elevated troponin Gastroesophageal reflux disease without esophagitis Hyperlipidemia, unspecified hyperlipidemia type Vascular dementia ([facility]) Unknown and unspecified causes of morbidity Syncope, unspecified syncope type Wrist joint pain Respiratory illness Requires lifelong warfarin therapy Secondary hyperparathyroidism ([facility]) ([facility]) Presence of prosthetic heart valve Plantar fascial fibromatosis Peripheral neuropathy Parathyroid adenoma Polymyalgia rheumatica ([facility]) ([facility]) Osteoporosis Numbness Muscle cramps Closed stable burst fracture of sixth thoracic vertebra, initial encounter ([facility]) ([facility]) Chest pain Contusion of scalp Knee pain Localized, primary osteoarthritis Osteoarthritis of knee Traumatic closed displaced fracture of distal end of radius Shoulder joint pain Hyperlipidemia associated with type 2 diabetes mellitus ([facility]) ([facility]) PVD (peripheral vascular disease) ([facility]) Hematoma Anxiety Diastolic heart failure ([facility]) ([facility]) Internal hemorrhoids Leukoencephalopathy Major depression single episode, in partial remission ([facility]) Metacarpal bone fracture Mitral valve disorder Peripheral arterial occlusive disease ([facility]) Primary osteoarthritis involving multiple joints Vision loss COPD (chronic obstructive pulmonary disease) ([facility]) ([facility]) Diarrhea Drug-induced constipation H/O mechanical aortic valve replacement Age-related osteoporosis with current pathological fracture Care Management Physical deconditioning Chronic heart failure with preserved ejection fraction (HFpEF) ([facility]) ([facility]) Paroxysmal atrial fibrillation ([facility]) ([facility]) Hypertension associated with type 2 diabetes mellitus ([facility]) ([facility]) Encounter for prophylactic measures, unspecified Graves' disease Cirrhosis of liver without ascites, unspecified hepatic cirrhosis type ([facility]) ([facility]) Stage 3b chronic kidney disease ([facility]) OLIVE (acute kidney injury) ([facility]) Medications: Current Outpatient Medications Medication Sig Dispense [...] 24 (Comment: Time spent with patient and Amina at 's office.) Time spent performing chart review (minutes): 8 Total time (minutes): 32 CASEY JOHNSON RN I reviewed the patient's status and education provided by CASEY JOHNSON RN. I agree with the findings and recommendations made. Cosigned by Sanjeev Webster DO at 02/03/2023 2:53 PM FLOUR TESTER R TESTER R TESTER documented in this encounter Plan of Treatment Upcoming Encounters Date Type Department Care Team (Late st Contact Info) Description 04/14/2024 2:00 PM FLOUR TESTER Office Visit [facility] Multispecialty Care - [facility] [address] [place] [address] Julio Pulido MD [address] [facility] [place] [address] documented as of this encounter Goals Goal Patient Goal Type Associated Problems Recent Progress Patient-Stated? Author Health - patient able to perform ADLs independently General On track(2023 9:49 AM CDT) Casey Corona RN Note: 12/17/23: Patient stated she is independent with ASL's. Establish Plan for Symptom Monitoring-CHF General On track(2023 11:36 AM FLOUR TESTER) Casey Corona RN Note: Patient will recognize [...] Monitoring-COPD General On track(2023 11:36 AM FLOUR TESTER) Casey Corona RN Note: Patient will recognize [...] Monitoring-DM General On track(2023 4:33 PM FLOUR TESTER) Casey Corona RN Note: Patient will manage [...] Monitoring-HTN General On track(2023 4:33 PM FLOUR TESTER) Casey Corona, DALE Note: Patient will monitor [...] disease, without long-term current use of insulin ([facility])- Primary Chronic heart failure with preserved ejection fraction (HFpEF) ([facility]) Chronic obstructive pulmonary disease, unspecified COPD type ([facility]) documented in this encounter Additional Health Concerns Assessment Noted Time PHQ-9 Depression Total Score: 13 023 3:56 PM CDT documented as of this encounter Care Teams Doctor'S Assistant Relationship Specialty Start Date End Date Sanjeev Webster DO [address] [place] [id number] PCP - General FAMILY PRACTICE 09/25/20 Casey Johnson RN [address] [place] [address] Pattern Finisher (Ambulatory) REGISTERED NURSE 08/14/20 documented as of this encounter
--- OUTSIDE RECORDS SUMMARY | 2024-03-15 00:57 | XMS_ITS | Encounter Summary ---
Author Organization [facility] Address [facility] [place] [address] [place] [address] Care Team Providers Care Counter Caser Name Role Phone Casey Johnson RN Unavailable [phone] Sanjeev Webster DO Primary Care Provider + Reason for Visit * Reason Onset Date Comments Care Management 01/07/2023 Encounter Details Date Type Department Care Team (Late st Contact Info) Description 01/07/2023 Patient Outreach [facility] Family & Internal Medicine [id number] [place] [address] Sanjeev Webster DO [facility] [place] [address] Care Management Social History Tobacco Use Types [...] Progress Notes * Casey Johnson RN - 01/07/2023 3:52 PM CDT Chronic Care Management: Reviewed chart notes in [facility] prior to contacting patient today. On 12/31/22 Waleska Gonzalez requested a referral for patient to see on 02/02/23. placed referral to a new Risk Control Product Liability Director in [place] since will no longer be practicing and patient is aware. Contacted Marko with the referral department and she stated patient will be seeing in [place] since will no longer be practicing. Patient was notified to contact 's office to schedule an appointment. Patient concerns or urgent matters that need addressed: Non identified during phone call. Patient Status: Spoke to patient today. Stated she left a message for 's office to contact her to schedule an appointment and no response at this time. Patient reports having gas on her stomach for 2 days and now it's gone after she had shon's. She no longer has gas.She's unsure of what she ate to cause gas. She's been weak lately and pushes herself to feed her dog. She ate a piece of cake today and [employer] yesterday. FBS between 90 and 91. She is sipping on water and Gatorade through out the day. Encouraged to stay well hydrated to prevent s/s of dehydration. She declines MOW at this time or seeing sooner than 01/12/23. Confirmed appointment with on 01/12/23. Encouraged to call before that time if she wants a sooner appointment. She plans on making herself some soup for dinner. Denies swelling, CP, or worsening sob. Denies s/s of COPD or CHF exacerbation. Denies fever. Reports having a headache but it's easing down. Offered to schedule an appointment and she declines. Encouraged to seek medical attention if s/s continue. Patient verbalizes understanding. Encouraged patient to reach out to CC if she decides on MOW and referral to [facility]) to set up. Patient thanked CC for calling. Plan of Care: nursing staffing coordinator will continue to follow up by [...] 01/12/2023 9:20 AM Sanjeev Webster DO MGFMMRVL [facility] [place] 01/16/2023 9:15 AM Sania Gomez MD [facility] 02/02/2023 11:40 AM Panda Moreno MD [facility] [place] [facility] Quality care gaps: Health Maintenance Topic Date Due Kidney Health Evaluation Never done ASCVD Statin Never done RSV Immunization 60+ (1 - 1-dose 60+ series) Never done Annual Medicare Wellness Visit Never done Lipid Panel 08/29/2022 ASCVD LDL 08/29/2022 COVID-19 Vaccine ( season) 2022 Influenza Adult (1) 12/07/2022 Zoster Vaccines (2 of 2) 01/06/2023 Hemoglobin A1C 01/07/2023 Diabetes: Retinopathy Eye Exam 04/21/2024 DTaP, Tdap and Td Vaccines (4 - Td or Tdap) 09/05/2030 DEXA SCAN (GENERAL) Completed Pneumococcal Vaccine: 65+ Years Completed Hepatitis C Completed Meningococcal Vaccine Aged Out Problem List: Patient Active Problem List Diagnosis Abnormal stress test Chronic anticoagulation Coronary artery disease involving [place] coronary artery of [place] heart without angina pectoris Dyspnea on exertion H/O mechanical aortic valve replacement Hypertensive heart disease with congestive heart failure ([facility]) ([facility]) LBBB (left bundle branch block) Myopathy VAZQUEZ (obstructive sleep apnea) Paroxysmal atrial flutter ([facility]) ([facility]) Benign hypertension with CKD (chronic kidney disease) stage III ([facility]) Memory deficits Hearing deficit, bilateral History of cataract extraction, unspecified laterality Vitamin D deficiency Hypercalcemia Chronic frontal sinusitis Constipation, unspecified constipation type Chronic bilateral low back pain without sciatica Iron deficiency anemia, unspecified iron deficiency anemia type Disorder of skin of trunk Anemia Body mass index (BMI) 31.0-31.9, adult 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[facility]) Benign hypertension with stage 3b chronic kidney disease (CMS/HCC) Cobalamin deficiency Compression fracture of thoracic vertebra ([facility]/HCC) (CMS/HCC) Depression Diabetic polyneuropathy ([facility]/HCC) ([facility]) Disorder of rotator cuff Diverticular disease Dysphagia Elevated troponin Gastroesophageal reflux disease without esophagitis Hyperlipidemia, unspecified hyperlipidemia type Vascular dementia ([facility]) Unknown and unspecified causes of morbidity Syncope, unspecified syncope type Senile purpura ([facility]) Wrist joint pain Respiratory illness Requires lifelong warfarin therapy Secondary hyperparathyroidism ([facility]) ([facility]) Presence of prosthetic heart valve Plantar fascial fibromatosis Peripheral neuropathy Parathyroid adenoma Polymyalgia rheumatica ([facility]) ([facility]) Osteoporosis Numbness Muscle cramps Closed stable burst fracture of sixth thoracic vertebra, initial encounter ([facility]) ([facility]) Chest pain Contusion of scalp Knee pain Localized, primary osteoarthritis Osteoarthritis of knee Traumatic closed displaced fracture of distal end of radius Shoulder joint pain Hyperlipidemia associated with type 2 diabetes mellitus ([facility]) ([facility]) PVD (peripheral vascular disease) ([facility]) Hematoma Anxiety Diastolic heart failure ([facility]) ([facility]) Internal hemorrhoids Leukoencephalopathy Major depression single episode, in partial remission ([facility]) Metacarpal bone fracture Mitral valve disorder Purpura ([facility]) Peripheral arterial occlusive disease ([facility]) Primary osteoarthritis involving multiple joints Vision loss COPD (chronic obstructive pulmonary disease) ([facility]) ([facility]) Diarrhea Drug-induced constipation H/O mechanical aortic valve replacement Age-related osteoporosis with current pathological fracture Care Management Physical deconditioning Chronic heart failure with preserved ejection fraction (HFpEF) ([facility]) ([facility]) Paroxysmal atrial fibrillation ([facility]) ([facility]) Hypertension associated with type 2 diabetes mellitus ([facility]) ([facility]) Encounter for prophylactic measures, unspecified Graves' disease Cirrhosis of liver without ascites, unspecified hepatic cirrhosis type ([facility]) ([facility]) Stage 3b chronic kidney disease ([facility]) OLIVE (acute kidney injury) ([facility]) Medications: Current Outpatient Medications Medication Sig Dispense [...] Patient Time spent with patient (minutes): 18 (Comment: Time with patient and referral department) Time spent performing chart review (minutes): 6 Total time (minutes): 24 CASEY JOHNSON RN I reviewed the patient's status and education provided by CASEY JOHNSON RN. I agree with the findings and recommendations made. Cosigned by Sanjeev Webster DO at 01/08/2023 3:08 PM CDT documented in this encounter Plan of Treatment Upcoming Encounters Date Type Department Care Team (Late st Contact Info) Description 04/14/2024 2:00 PM SPEAKING UNIT ASSEMBLER Office Visit [facility] Group Multispecialty Care - [facility] [address] [facility], [address] [place] [address] Julio Pulido MD [address] [place] [address] documented as of this encounter Goals Goal Patient Goal Type Associated Problems Recent Progress Patient-Stated? Author Health - patient able to perform ADLs independently General On track(2023 9:49 AM CDT) Casey Corona RN Note: 12/17/23: Patient stated she is independent with ASL's. Establish Plan for Symptom Monitoring-CHF General On track(2023 11:36 AM SPEAKING UNIT ASSEMBLER) Casey Corona RN Note: Patient will recognize [...] Symptom Monitoring-COPD General On track(2023 11:36 AM SPEAKING UNIT ASSEMBLER) Casey Corona RN Note: Patient will recognize [...] Symptom Monitoring-DM General On track(2023 4:33 PM SPEAKING UNIT ASSEMBLER) Casey Corona RN Note: Patient will manage [...] Symptom Monitoring-HTN General On track(2023 4:33 PM SPEAKING UNIT ASSEMBLER) Casey Corona RN Note: Patient will monitor [...] long-term current use of insulin ([facility])- Primary Chronic obstructive pulmonary disease, unspecified COPD type ([facility]) Chronic heart failure with preserved ejection fraction (HFpEF) ([facility]) documented in this encounter Additional Health Concerns Assessment Noted Time PHQ-9 Depression Total Score: 13 023 3:56 PM CDT documented as of this encounter Care Teams Counter Caser Relationship Specialty Start Date End Date Sanjeev Webster DO [address] [place] [id number] PCP - General FAMILY PRACTICE 09/25/20 Casey Johnson, RN [address] [place] [address] Chemical Engineering Technician (Ambulatory) REGISTERED NURSE 08/14/20 documented as of this encounter
--- OUTSIDE RECORDS SUMMARY | 2024-03-15 00:57 | XMS_ITS | Encounter Summary ---
Author Organization [facility] Address [facility]6 [facility] [place] [address] [place] [address] Care Team Providers Care Shoer Name Role Phone Dianne Johnson RN Unavailable [phone] Sanjeev Webster DO Primary Care Provider + Reason for Visit * Reason Onset Date Comments Results 11/27/2022 Encounter Details Date Type Department Care Team (Late st Contact Info) Description 11/27/2022 Telephone [facility] Internal Medicine [address] [place] [address] Sanjeev Webster DO [facility] [place] [address] Results Social History Tobacco Use [...] Recorded Patient Health Questionnaire-2 Score 3 07/08/2022 [facility] of Occupat ional Health [...] No 08/26/2022 Housing Stability Vital Sign Answer Jsutin e Recorded In the last 12 months, [...] Progress Notes * Yenifer Ingram MA - 11/28/2022 3:32 PM CDT Spoke with Izzy and informe dher Dr. Webster advised patient to take 8mg of warfarin Thursday and Thursday. And 7mg Thursday through Thursday * Dipti Shay - 11/28/2022 9:54 AM CDT Pts. Daughter in law called and would like a call back to discuss dosages of medication please callbetween [phone] or after 215 pm * Yenifer Ingram MA - 11/28/2022 9:33 AM CDT Spoke with patient and informed her of information below. The patient states her daughter in law makes her medication packs for her. Called Izzy and left a detailed message of the information below. Informed her in the VM to return call with questions or concerns. The patient is scheduled for INR on 12/05/2022. * Yenifer Ingram MA - 11/27/2022 4:10 PM CDT Lmom for r/c. ----- Message from Sanjeev Webster DO sent at 11/26/2022 7:36 AM CDT ----- Pt's INR is elevated; I believe pt [...] st Contact Info) Description 04/14/2024 2:00 PM CLOTH FINISHING RANGE TENDER Office Visit [facility]ialty Care - [facility] 3 [facility], [address] [place] [phone] Julio Pulido MD 3 [place] [address] documented as of this encounter Goals Goal Patient Goal Type Associated Problems Recent Progress Patient-Stated? Author Health - patient able to perform ADLs independently General On track(2023 9:49 AM CDT) Dianne Corona RN Note: 12/17/23: Patient stated she is independent with ASL's. Establish Plan for Symptom Monitoring-CHF General On track(2023 11:36 AM CLOTH FINISHING RANGE TENDER) Dianne Corona, RN Note: Patient will recognize [...] Symptom Monitoring-COPD General On track(2023 11:36 AM CLOTH FINISHING RANGE TENDER) Dianne Corona, RN Note: Patient will recognize [...] Symptom Monitoring-DM General On track(2023 4:33 PM CLOTH FINISHING RANGE TENDER) Dianne Coorna RN Note: Patient will manage her diabetes [...] Symptom Monitoring-HTN General On track(2023 4:33 PM CLOTH FINISHING RANGE TENDER) Dianne Corona, DALE Note: Patient will [...] documented as of this encounter Care Teams Shoer Relationship Specialty Start Date End Date Sanjeev Webster DO [address] [place] [address] PCP - General FAMILY PRACTICE 09/25/20 Dianne Johnson, RN [address] [place] [address] Reservations Agent (Ambulatory) REGISTERED NURSE 08/14/20 documented as of this encounter
--- OUTSIDE RECORDS SUMMARY | 2024-03-15 00:57 | XMS_ITS | Encounter Summary ---
Author Organization [facility] Address [facility]6 [place] [address] [place] [address] Care Team Providers Care Grape Cutter Name Role Phone Dianne Johnson RN Unavailable [phone] Sanjeev Webster DO Primary Care Provider + Encounter Details Date Type Department Care Team (Latest Contact Info) Description 11/25/2022 Travel Social History Tobacco Use Types Packs/Day [...] Recorded Patient Health Questionnaire-2 Score 3 07/08/2022 [facility] of Occupat ional [...] st Contact Info) Description 04/14/2024 2:00 PM MOTOR BRAKEMAN Office Visit [facility] Multispecialty Care - [facility] 3 [facility], [address] [place] [address] Julio Pulido MD 3 [place] [address] documented as of this encounter Goals Goal Patient Goal Type Associated Problems Recent Progress Patient-Stated? Author Health - patient able to perform ADLs independently General On track(2023 9:49 AM CDT) Dianne Corona RN Note: 12/17/23: Patient stated she is independent with ASL's. Establish Plan for Symptom Monitoring-CHF General On track(2023 11:36 AM MOTOR BRAKEMAN) Dianne Corona RN Note: Patient will recognize [...] Symptom Monitoring-COPD General On track(2023 11:36 AM MOTOR BRAKEMAN) Dianne Corona RN Note: Patient will recognize [...] Symptom Monitoring-DM General On track(2023 4:33 PM MOTOR BRAKEMAN) Dianne Corona RN Note: Patient will manage [...] Symptom Monitoring-HTN General On track(2023 4:33 PM MOTOR BRAKEMAN) Dianne Corona, RN Note: Patient will monitor [...] documented as of this encounter Care Teams Grape Cutter Relationship Specialty Start Date End Date Sanjeev Webster DO [address] [place] [address] PCP - General FAMILY PRACTICE 09/25/20 Dianne Johnson, RN [address] [place] [address] Outreach Director (Ambulatory) REGISTERED NURSE 08/14/20 documented as of this encounter
--- OUTSIDE RECORDS SUMMARY | 2024-03-15 00:58 | XMS_ITS | Encounter Summary ---
Author Organization [facility] Address [facility]6 [facility] [place] [address] [place] [address] Care Team Providers Care Watch Supervisor Name Role Phone Dianne Johnson RN Unavailable [phone] Sanjeev Webster DO Primary Care Provider + Reason for Visit * Reason Onset Date Comments Lab Results 10/23/2022 Encounter Details Date Type Department Care Team (Late st Contact Info) Description 10/23/2022 Telephone [facility] Family & Internal Medicine [address] [place] [address] Sanjeev Webster DO [address] [place] [address] Lab Results Social History Tobacco [...] Recorded Patient Health Questionnaire-2 Score 3 07/08/2022 [facility] of Occupat ional Health [...] Progress Notes * Yenifer Ingram MA - 10/24/2022 1:32 PM CDT LMOM in detail for izzy. Called patient and informed her as well. Not questions at this time. I informed izzy via VM to r/c with questions. * Sanjeev Webster DO - 10/24/2022 11:50 AM CDT Have her increase to 8 mg on Thursday, Thursday, and Thursday. Go back to 7 mg daily after that. We will recheck PT/INR on 11/03/22 at scheduled follow-up. * Scarlett Guerrero MA - 10/24/2022 11:48 AM CDT Patient is taking 7mg daily. * Yenifer Ingram MA - 10/24/2022 11:19 AM CDT The patient was notified about results. The patient v/u. LMOM for izzy to return call. * Sanjeev Webster DO - 10/23/2022 3:53 PM CDT Pt's PT/INR is near goal at 2.4 but still subtherapeutic. Reach out to pt's family and clarify current dosing and we will increase slightly. documented in this encounter Plan of Treatment Upcoming Encounters Date Type Department Care Team (Late st Contact Info) Description 04/14/2024 2:00 PM UNDERGROUND ROOF BOLTER Office Visit [facility] Multispecialty Care - [facility] 3 [facility], [address] [place] [address] Julio Pulido MD 3 [place] [address] documented as of this encounter Goals Goal Patient Goal Type Associated Problems Recent Progress Patient-Stated? Author Health - patient able to perform ADLs independently General On track(2023 9:49 AM CDT) Dianne Corona RN Note: 12/17/23: Patient stated she is independent with ASL's. Establish Plan for Symptom Monitoring-CHF General On track(2023 11:36 AM UNDERGROUND ROOF BOLTER) Dianne Corona, RN Note: Patient will recognize [...] Symptom Monitoring-COPD General On track(2023 11:36 AM UNDERGROUND ROOF BOLTER) Dianne Corona, RN Note: Patient will recognize [...] Symptom Monitoring-DM General On track(2023 4:33 PM UNDERGROUND ROOF BOLTER) Dianne Corona RN Note: Patient will manage [...] Symptom Monitoring-HTN General On track(2023 4:33 PM UNDERGROUND ROOF BOLTER) Dianne Corona, RN Note: Patient will monitor [...] documented as of this encounter Care Teams Watch Supervisor Relationship Specialty Start Date End Date Sanjeev Webster DO [address] [place] [address] PCP - General FAMILY PRACTICE 09/25/20 Dianne Johnson RN [address] [place] [address] Contracts Officer (Ambulatory) REGISTERED NURSE 08/14/20 documented as of this encounter
--- OUTSIDE RECORDS SUMMARY | 2024-03-15 00:58 | XMS_ITS | Encounter Summary ---
Author Organization [facility] Address [facility]6 [facility]. [place], [place] [address] [place] [address] Care Team Providers Care Pottery Machine Operator Name Role Phone Dianne Johnson RN Unavailable [phone] Sanjeev Webster DO Primary Care Provider + Reason for Visit * Reason Onset Date Comments TCM 08/29/2022 Encounter Details Date Type Department Care Team (Late st Contact Info) Description 08/29/2022 Telephone [facility] Family & Internal Medicine [address] [place] [address] Sanjeev Webster DO [address] [place] [address] [facility] Social History Tobacco Use Types Packs/Day Years [...] Score 3 07/08/2022 [facility] of Occupat ional Health [...] Progress Notes * Dianne Johnson RN - 09/01/2022 7:16 AM CDT Care coordination team will complete TCM call back . Thank you. * Donna Norwood - 08/29/2022 10:25 AM CDT TCM scheduled for 09/10. Discharging from [facility] today. Dx- acute kidney injury. documented in this encounter Plan of Treatment Upcoming Encounters Date Type Department Care Team (Late st Contact Info) Description 04/14/2024 2:00 PM FURNACE SETTER Office Visit [facility] Multispecialty Care - [facility] 3 [facility], [address] [place] [phone] Julio Pulido MD 3 [place] [address] documented as of this encounter Goals Goal Patient Goal Type Associated Problems Recent Progress Patient-Stated? Author Health - patient able to perform ADLs independently General On track(2023 9:49 AM CDT) Dianne Corona, RN Note: 12/17/23: Patient stated she is independent with ASL's. Establish Plan for Symptom Monitoring-CHF General On track(2023 11:36 AM FURNACE SETTER) Dianne Corona, RN Note: Patient will recognize [...] Symptom Monitoring-COPD General On track(2023 11:36 AM FURNACE SETTER) Dianne Corona RN Note: Patient will [...] Symptom Monitoring-DM General On track(2023 4:33 PM FURNACE SETTER) Dianne Corona RN Note: Patient will [...] Symptom Monitoring-HTN General On track(2023 4:33 PM FURNACE SETTER) No Johnson, Dianne R, RN Note: Patient [...] documented as of this encounter Care Teams Pottery Machine Operator Relationship Specialty Start Date End Date Sanjeev Webster DO [address] [place] [id number] PCP - General FAMILY PRACTICE 09/25/20 Dianne Johnson, RN [address] [place] [address] Web Operations Manager (Ambulatory) REGISTERED NURSE 08/14/20 documented as of this encounter
--- OUTSIDE RECORDS SUMMARY | 2024-03-15 00:58 | XMS_ITS | Encounter Summary ---
Author Organization [facility] Address [facility]6 [facility]. [place], [place] [address] [place] [address] Care Team Providers Care Artist Relationship Manager Name Role Phone Dianne Johnson RN Unavailable [phone] Sanjeev Webster DO Primary Care Provider + Reason for Visit * Reason Comments Allied Health Visit Encounter Details Date Type Department Care Team (Latest Contact Info) Description 09/26/2022 9:20 AM CDT Allied Health/Nurse Visit [facility] Family & Internal Medicine [facility] [address] [place] [address] Sanjeev Webster DO [address] [place] [address] Allied Health Visit Social History [...] often do you attend chur ch or rastafari services? More than 4 times [...] Recorded Patient Health Questionnaire-2 Score 3 07/08/2022 [facility] of Occupat ional [...] Progress Notes * Natalee Brown RN - 09/26/2022 9:20 AM CDT Patient in today for help with life alert devise and a closed caption phone. Unfortunately, this nurse is unable to help related to the device needs to be connected to her home phone line. Did give patient 2 phone numbers to call for customer support. Also, printed off lab results. Opportunity given for all questions to be answered, no further needs voiced at this time. LL-09/26/22 documented in this encounter Plan of Treatment Upcoming Encounters Date Type Department Care Team (Late st Contact Info) Description 04/14/2024 2:00 PM RIB BENDER Office Visit [facility] Multispecialty Care - [facility] 3 [facility], [address] [place] [address] Julio Pulido MD [address] [place] [address] documented as of this encounter Goals Goal Patient Goal Type Associated Problems Recent Progress Patient-Stated? Author Health - patient able to perform ADLs independently General On track(2023 9:49 AM CDT) Dianne Corona, RN Note: 12/17/23: Patient stated she is independent with ASL's. Establish Plan for Symptom Monitoring-CHF General On track(2023 11:36 AM RIB BENDER) Dianne Corona, RN Note: Patient will recognize [...] Symptom Monitoring-COPD General On track(2023 11:36 AM RIB BENDER) Dianne Corona RN Note: Patient will recognize [...] Symptom Monitoring-DM General On track(2023 4:33 PM RIB BENDER) Dianne Corona RN Note: Patient will manage [...] Symptom Monitoring-HTN General On track(2023 4:33 PM RIB BENDER) No Johnson, Dianne R, RN Note: Patient will monitor B/P several times per week , record readings and report to physician or CC if B/P consistently >130/80 Take your medications as prescribed. Follow up with your provider as scheduled. Take your blood pressure at least several times a week if able. documented as of this encounter Visit Diagnoses Diagnosis At high risk for falls- Primary Personal history of fall documented in this encounter Additional Health Concerns Assessment Noted Time PHQ-9 Depression Total Score: 3 12/24/19 22 11:48 AM CDT documented as of this encounter Care Teams Artist Relationship Manager Relationship Specialty Start Date End Date Sanjeev Webster DO [address] [place] [address] PCP - General FAMILY PRACTICE 09/25/20 Dianne Johnson, RN [address] [place] [address] Cotton Classer (Ambulatory) REGISTERED NURSE 08/14/20 documented as of this encounter
--- OUTSIDE RECORDS SUMMARY | 2024-03-15 00:58 | XMS_ITS | Encounter Summary ---
Author Organization [facility] Address [facility]6 [place] [address] [place] [address] Care Team Providers Care Whitewater Rafting Guide Name Role Phone Dianne Johnson RN Unavailable [phone] Sanjeev Webster DO Primary Care Provider + Reason for Visit * Reason Onset Date Comments Consult 09/11/2022 Encounter Details Date Type Department Care Team (Late st Contact Info) Description 09/11/[address] [address] Yenifer Bunch, RMA Consult Social History Tobacco Use Types Packs/Day Years [...] Recorded Patient Health Questionnaire-2 Score 3 [facility]20[facility] Answer Date Recorded [...] documented in this encounter Progress Notes * JACKSON Reyes - 09/11/2022 11:38 AM CDT Left message to schedule cardiology consult per Dr Webster documented in this encounter Plan of Treatment Upcoming Encounters Date Type Department Care Team (Late st Contact Info) Description 04/14/2024 2:00 PM PAINTER DECORATOR Office Visit [facility] Multispecialty Care - [facility] 3 [facility], [address] [place] [phone] Julio Pulido MD 3 [place] [address] documented as of this encounter Goals Goal Patient Goal Type Associated Problems Recent Progress Patient-Stated? Author Health - patient able to perform ADLs independently General On track(2023 9:49 AM CDT) Dianne Corona RN Note: 12/17/23: Patient stated she is independent with ASL's. Establish Plan for Symptom Monitoring-CHF General On track(2023 11:36 AM PAINTER DECORATOR) Dianne Corona RN Note: Patient will recognize [...] Symptom Monitoring-COPD General On track(2023 11:36 AM PAINTER DECORATOR) Dianne Corona RN Note: Patient will recognize [...] Symptom Monitoring-DM General On track(2023 4:33 PM PAINTER DECORATOR) Dianne Corona RN Note: Patient will manage [...] Symptom Monitoring-HTN General On track(2023 4:33 PM PAINTER DECORATOR) Dianne Corona RN Note: Patient will monitor [...] documented as of this encounter Care Teams Whitewater Rafting Guide Relationship Specialty Start Date End Date Sanjeev Webster DO [address] [place] [address] PCP - General FAMILY PRACTICE 09/25/20 Dianne Johnson, RN [facility] [place] [address] Director Business Travel (Ambulatory) REGISTERED NURSE 08/14/20 documented as of this encounter
--- OUTSIDE RECORDS SUMMARY | 2024-03-15 00:58 | XMS_ITS | Encounter Summary ---
Author Organization [facility] Address [facility]6 [facility] [place] [address] [place] [address] Care Team Providers Care After School Driver Name Role Phone Dianne Johnson RN Unavailable [phone] Sanjeev Webster DO Primary Care Provider + Reason for Visit * Reason Comments Lab (SCAN) Encounter Details Date Type Department Care Team (Latest Contact Info) Description 10/16/2022 Scan HEALTH INFO SRVCS Scanned, Doc Med [...] Questionnaire-2 Score 6 12/11/2022 [facility] Questionnaire Answer [...] st Contact Info) Description 04/14/2024 2:00 PM INTERVENTIONAL RADIOLOGY TECH Office Visit [facility] Mult[facility]pecialty Care - [facility] 3 [facility], [address] [place] [address] Julio Pulido MD 3 [place] [address] documented as of this encounter Goals Goal Patient Goal Type Associated Problems Recent Progress Patient-Stated? Author Health - patient able to perform ADLs independently General On track(2023 9:49 AM CDT) Dianne Corona RN Note: 12/17/23: Patient stated she is independent with ASL's. Establish Plan for Symptom Monitoring-CHF General On track(2023 11:36 AM INTERVENTIONAL RADIOLOGY TECH) Dianne Corona RN Note: Patient will [...] Symptom Monitoring-COPD General On track(2023 11:36 AM INTERVENTIONAL RADIOLOGY TECH) Dianne Corona RN Note: Patient will [...] Symptom Monitoring-DM General On track(2023 4:33 PM INTERVENTIONAL RADIOLOGY TECH) Dianne Corona RN Note: Patient will [...] Symptom Monitoring-HTN General On track(2023 4:33 PM INTERVENTIONAL RADIOLOGY TECH) Dinane Corona, RN Note: Patient will monitor B/P several times per week , record readings and report to physician or CC if B/P consistently >130/80 Take your medications as prescribed. Follow up with your provider as scheduled. Take your blood pressure at least several times a week if able. documented as of this encounter Procedures Procedure Name Priority Date/Time Associated Diagnosis Comments OUTSIDE PT/INR (SCAN ORDER) 10/16/2022 documented in this encounter Results * OUTSIDE PT/INR (SCAN) (10/16/2022) 10/16/2022 [facility] Scanned SCANNING Final Resu lt documented in this encounter Visit Diagnoses Not on filedocumented in this encounter Additional Health Concerns Assessment Noted Time PHQ-9 Depression Total Score: 3 12/24/19 22 11:48 AM CDT documented as of this encounter Care Teams After School Driver Relationship Specialty Start Date End Date Sanjeev Webster DO [address] [place] [address] PCP - General FAMILY PRACTICE 09/25/20 Dianne Johnson, RN [address] [place] [address] Bias Cutter Helper (Ambulatory) REGISTERED NURSE 08/14/20 documented as of this encounter
--- OUTSIDE RECORDS SUMMARY | 2024-03-15 00:58 | XMS_ITS | Encounter Summary ---
Author Organization [facility] Address [facility]. [place], [place] [address] [place] [id number] Care Team Providers Care Licensed Clinician Name Role Phone Dianne Johnson RN Unavailable [phone] Sanjeev Webster DO Primary Care Provider + Reason for Visit * Reason Comments CHF CONSULT Atrial Fibrillation Coronary Artery Disease LBBB * Consultation (Urgent) - Closed Specialty Diagnoses / Procedures Referred By Contac t Referred To Contact CARDIOLOGY / Cardiology Diagnoses Chronic heart failure with preserved ejection fraction (HFpEF) ([facility]) Paroxysmal atrial fibrillation ([facility]) LBBB (left bundle branch block) Coronary artery disease involving atqasuk coronary artery of [place]qasuk heart without angina pectoris Procedures OFFICE/OUTPT VISIT,NEW,LEVL III OFFICE/OUTPT VISIT,NEW,LEVL IV OFFICE/OUTPT VISIT,NEW,LEVL V OFFICE/OUTPT VISIT,EST,LEVL III OFFICE/OUTPT VISIT,EST,LEVL IV OFFICE/OUTPT VISIT,EST,LEVL V Sanjeev Webster DO [address] [place] [address] Phone: tel: fax: Sania Gomez MD [facility] [address] [place] [address] Phone: tel: fax: Referral ID Status Reason Start Date Expiration Date V isits Requested Visits Authorized [id number] Closed Specialty Services 09/22/2022 09/23/2023 12 12 Encounter Details Date Type Department Care Team (Latest Contact Info) Description 10/03/2022 11:15 AM CDT Office Visit [facility] [phone] Sania Gomez MD [address] [facility] [address] [place], [place] [phone] CHF (CONSULT); Atrial Fibrillation; Coronary Artery Disease (LBBB/) Social History Tobacco Use Types Packs/Day Years [...] often do you attend chur ch or anabaptist services? More than 4 times [...] Sign Reading Time Taken Comments Blood Pressure 152/64 10/03/2022 11:17 AM CDT Pulse 57 10/03/2022 11:17 AM CDT Temperature - - Respiratory Rate - - Oxygen Saturation 97% 10/03/2022 11:17 AM CDT Inhaled Oxygen Concentration - - Weight 84.5 kg (186 lb 4.8 oz) 10/03/2022 11:17 AM CDT Height 165.1 cm (5' 5 ) 10/03/2022 11:17 AM CDT Body Mass Index 31 10/03/2022 11:17 AM CDT documented in this encounter Functional [...] in this encounter Progress Notes * Sania Goemz MD - 10/03/2022 11:15 AM CDT Images from the original note were not included. [place], [place] [address] Cardiology Consult PCP: Sanjeev Webster DO Past Cardiac History Prior to Appointment HFmrEF c/b RV dysfunction and pHTN: TTE 10/2021 EF 40-45% - lasix 20/40 QOD, Kchlor 10 meq QD Paroxysmal A. Fib: Warfarin, Metoprolol tartrate 12.5 mg BID - failed sotalol, on amiodarone (d/c 2/2 toxicity), significant bradycardia with metoprolol succinate Mechanical Aortic Valve: warfarin Moderate MR: TTE 10/2021 Coronary arteyr Calcification Hyperlipidemia VAZQUEZ: on CPAP RMCA saccular aneurysm History Ms. Radha Huynh is a 77-year-old female with the aforementioned past medical history who presents to [facility]. Patient was previously following with Dr. Ordoñez. She wishes to transfer care. Valve replaced at [facility] in [place]. She is unsure what year. States overall she is doing well. Patient denies anychest pain, shortness of breath, orthopnea, lower extremity edema, fatigue,decreased appetite, palpitations, light headedness, dizziness, syncope. She has stable TORRES. Her physical activity is mostly limited by back pain (states she has a broken back). 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 06/24/22 Yes Sanjeev Webster DO ALPRAZolam (XANAX) 0.5 MG tablet TAKE 1/2 (ONE-HALF) TABLET BY MOUTH NIGHTLY NEEDED FOR SLEEP 09/23/22 Yes Sanjeev Webster, DO Cholecalciferol (VITAMIN D3) 25 MCG (1000 UT) Cap Take 1,000 Units by mouth daily. Yes Doc [facility] Abstract furosemide (LASIX) 80 MG tablet Take 0.5 tablets (40 mg total) by mouth daily. Patient taking differently: Alternate 20 mg and 40 mg of furosemide on alternating days. 08/29/22 Yes Lina Hurley NP gabapentin (NEURONTIN) 300 MG capsule Take 1 capsule (300 mg total) by mouth 3 (three) times daily.05/20/22 Yes Sanjeev Webster DO HYDROcodone-acetaminophen (NORCO) 10-325 MG tablet Take 1 tablet by mouth every 6 (six) hours as needed for Pain. Indications: Chronic Pain Do not take with alprazolam. 09/10/22 Yes Sanjeev Webster DO iron polysaccharides (NIFEREX) 150 MG capsule Take 1 capsule (150 mg total) by mouth daily. 06/03/22Yes Sanjeev Webster DO methIMAzole (TAPAZOLE) 10 MG tablet Take 1 tablet (10 mg total) by mouth daily. 09/02/22 Yes Jonathan Webster, DO metoprolol tartrate (LOPRESSOR) 25 MG tablet Take 0.5 tablets (12.5 mg total) by mouth 2 (two) times daily. 07/31/22 Yes Sanjeev Webster DO omeprazole (PRILOSEC) 20 MG capsule Take 1 capsule by mouth once daily 08/28/22 Yes Sanjeev Webster DO potassium chloride CR (K-TAB) 10 MEQ Tab CR tablet Take 1 tablet by mouth once daily Patient taking differently: every evening. 08/13/22 Yes Sanjeev Webster, DO venlafaxine XR (EFFEXOR-XR) 150 MG 24 hr capsule Take 1 capsule (150 mg total) by mouth daily. 04/17/22 Yes Sanjeev Webster DO warfarin (COUMADIN) 1 MG tablet Take 1 tablet by mouth once daily 09/23/22 Yes Sanjeev Webster,DO warfarin (COUMADIN) 6 MG tablet Take 1 tablet (6 mg total) by mouth daily. 09/02/22 Yes Sanjeev Webster DO Review of patient's allergies [...] as per HPI. Physical Exam Filed Vitals: 10/03/22 1117 BP: (!) 152/64 Pulse: (!) 57 SpO2: 97% Weight: 84.5 kg (186 lb 4.8 oz) Height: 5' 5 (1.651 m) Body mass index is 31 kg/m??. Physical Exam: General: NAD, Appears Normal Stated Age HEENT: PEERL, EOMI, MMM NECK: No JVD CVS: RRR, Early ANTOINETTE with crisp S2 Resp: CTAB, no wheezes, rales, rhonchi ABD: Soft, NT, ND, +BS Ext: No CCE Neuro: Non Focal Psych: Normal Affect Diagnostic Data Lab Results Component Value Date/Time [...] TRI 108 08/29/2021 HDL 71 08/29/2021 HGBA1C 6.6 07/07/2022 TSH 1.277 08/26/2022 No results for input(s): TROP, TROPIWB in the last 168 hours. EK08/2022: [...] lifelong dental ppx - annual TTE (ordered today) #Paroxysmal A. Fib: - continue Warfarin, Metoprolol [...] -Reg Spect 10/2021: negative for ischemia/infarction #Hyperlipidemia: 08/29/2021 3:17 PM LIPID PANEL FLOWSHEET CHOLESTEROL 200 TRIGLYCERIDES 108 HDL 71 NON HDL CHOLESTEROL 129 09/2022: TG 149, LDL 178 - statin intolerance - recommend zetia 10 mg QD (She would like to think about it) - repeat lipid panel:annually #VAZQUEZ on CPAP #Health Maintenance Screening: - BMI: Body mass index is 31 kg/m??. Recommend lifestyle modifications including diet (calorie deficit, low saturated/trans fat, low sodium) and exercise (150 minutes of moderate intensity/week) - AAA screening: N/A - PAD: denies symptoms Follow-Up: 4 months Thank you for allowing me to participate in the care of this patient. Please reach out with any questions. Sania Gomez MD A total of 45 minutes was spent reviewing the patient's medical record, obtaining history, performing an exam, ordering medications, tests, and/or procedures, documenting in the medical record, referring and/or communicating with other health care providers, counseling and educating the patient/fami ly/caregiver, reviewing and communicating test results and coordination of care. Portions of this note were dictated using Infoflow speech recognition software. Occasional wrong wordor sound-alike substitutions may have occurred due to the inherent limitations of voice recognition software. Please read the chart carefully and recognize, using context, where the substitutions may have occurred. documented in this encounter Plan of Treatment Upcoming Encounters Date Type Department Care Team (Late st Contact Info) Description 04/14/2024 2:00 PM AMF MECHANIC Office Visit [facility] Multispecialty Care - [facility] [address] [facility], [address] [place] [phone] Julio Pulido MD [address] [place] [address] documented as of this encounter Goals Goal Patient Goal Type Associated Problems Recent Progress Patient-Stated? Author Health - patient able to perform ADLs independently General On track(2023 9:49 AM CDT) Dianne Corona RN Note: 12/17/23: Patient stated she is independent with ASL's. Establish Plan for Symptom Monitoring-CHF General On track(2023 11:36 AM AMF MECHANIC) Dianne Corona RN Note: Patient will [...] Symptom Monitoring-COPD General On track(2023 11:36 AM AMF MECHANIC) Dianne Corona RN Note: Patient will [...] Symptom Monitoring-DM General On track(2023 4:33 PM AMF MECHANIC) Dianne Corona RN Note: Patient will [...] Symptom Monitoring-HTN General On track(2023 4:33 PM AMF MECHANIC) Dianne Corona RN Note: Patient will monitor [...] Primary Heart valve replaced by other means Coronary artery disease involving [place] coronary artery of [place] heart without angina pectoris Hyperlipidemia, unspecified hyperlipidemia type Mitral valve disorder Mitral valve disorders Chronic heart failure with preserved ejection fraction (HFpEF) ([facility]) Paroxysmal atrial fibrillation ([facility]) Atrial fibrillation Statin intolerance Other drug allergy documented in this encounter Additional Health Concerns Assessment Noted Time PHQ-9 Depression Total Score: 3 12/24/19 22 11:48 AM CDT documented as of this encounter Care Teams Licensed Clinician Relationship Specialty Start Date End Date Sanjeev Webster DO [address] [place] [id number] PCP - General FAMILY PRACTICE 09/25/20 Dianne Johnson, RN [address] [place] [address] Disintegrator Operator (Ambulatory) REGISTERED NURSE 08/14/20 documented as of this encounter
--- OUTSIDE RECORDS SUMMARY | 2024-03-15 00:58 | XMS_ITS | Encounter Summary ---
Author Organization [facility] Address [facility] access hospital6 [facility] [place] [address] [place] [address] Care Team Providers Care Junior High School Teacher Name Role Phone Casey Johnson RN Unavailable [phone] Sanjeev Webster DO Primary Care Provider + Reason for Visit * Reason Onset Date Comments Care Management 09/24/2022 Encounter Details Date Type Department Care Team (Late st Contact Info) Description 09/24/2022 Patient Outreach [facility] Medical [facility] Family & Internal Medicine [address] [phone] Casey Johnson, RN [address] [place] [address] Care Management Social History Tobacco [...] Recorded Patient Health Questionnaire-2 Score 3 07/08/2022 [facility] - Occupational [...] Progress Notes * Casey Johnson RN - 09/24/2022 3:36 PM CDT Chronic Care Management: Patient concerns or urgent matters that need addressed: See below for details. Patient Status: Izzy ([id number]) on HIPAA called. She wants to know if any medications have changed she planson filling pill raw material planner tomorrow night. Informed Izzy patient is past due for a PT/INR and needs a BMP/CBC in 2 to 3 weeks from 09/11/22. CC will reach out to patient and find out where she wants lab work done. Patient seen by [facility] Cardiology on 09/18/22. Encouraged Izzy to have patient bring updated medication list to each appointment. Izzy verbalizes understanding. 09/24: Contacted patient. Stated she prefers to have lab work done at 's office but second choice is [facility]. Patient stated she has a life alert that goes around her neck and a small box that connects to it. She's had this for over a year and it's not working correctly. The bryan that dropped off box and lifealert did not leave his card or paper work on how to use it. Patient is requesting help. The above information sent to 's nursing team. Patient is aware. Patient denies any issues with sob or swelling. Denies any issues with COPD or CHF exacerbation at this time. Seen by [facility] Cardiology on 09/18/22. B/P at appointment 122/66. Stated she declined [facility] services. Stated she doesn't want or need this service. She is independent with ADL's. Patient stated she missed an appointment with Neurologist and someone was supposed to call her backwith another appointment. Reviewed referral from 09/15/22. Informed patient CC will reach out to thereferral department and have someone call her. Patient verbalizes understanding. 09/24/22: Contacted Chanel with referral department. She will contact patient regarding Neurology referral status. Plan of Care: stars coordinator will continue to follow up by [...] Future Appointments Date Time Provider Department Center 10/03/2022 11:15 AM Sania Gomez MD [facility] 10/14/2022 10:20 AM Panda Moreno MD [facility] 11/03/2022 9:20 AM Sanjeev Webster DO [facility] Quality care gaps: Health Maintenance Topic Date [...] test Chronic anticoagulation Coronary artery disease involving redding coronary artery of redding heart without angina pectoris Dyspnea on exertion H/O mechanical aortic valve replacement Hypertensive heart disease with congestive heart failure ([facility]/HCC) LBBB (left bundle branch block) Myopathy VAZQUEZ (obstructive sleep apnea) Paroxysmal atrial flutter ([facility]/HCC) Benign hypertension with CKD (chronic kidney disease) stage III ([facility]) Memory deficits Hearing deficit, bilateral History of cataract extraction, unspecified laterality Vitamin D deficiency Hypercalcemia Chronic frontal sinusitis Constipation, unspecified constipation type Chronic bilateral low back pain without sciatica Iron deficiency anemia, unspecified iron deficiency anemia type Disorder of skin of trunk Anemia Body mass index (BMI) 31.0-31.9, adult Saccular aneurysm Benign hypertension with stage 3b chronic kidney disease (CMS/HCC) Cobalamin deficiency Compression fracture of thoracic vertebra (CMS/HCC) Depression Diabetic polyneuropathy ([facility]/HCC) Disorder of rotator cuff Diverticular disease Dysphagia Elevated troponin Gastroesophageal reflux disease without esophagitis Hyperlipidemia, unspecified hyperlipidemia type Vascular dementia (CMS/HCC) Unknown and unspecified causes of morbidity Syncope, unspecified syncope type Senile purpura (CMS/HCC) Wrist joint pain Respiratory illness Requires lifelong warfarin therapy Secondary hyperparathyroidism (CMS/HCC) Presence of prosthetic heart valve Plantar fascial fibromatosis Peripheral neuropathy Parathyroid adenoma Polymyalgia rheumatica (CMS/HCC) Osteoporosis Numbness Muscle cramps Closed stable burst fracture of sixth thoracic vertebra, initial encounter ([facility]/HCC) Chest pain Contusion of scalp Knee pain Localized, primary osteoarthritis Osteoarthritis of knee Traumatic closed displaced fracture of distal end of radius Shoulder joint pain Hyperlipidemia associated with type 2 diabetes mellitus (CMS/HCC) PVD (peripheral vascular disease) (CMS/HCC) Hematoma Anxiety Diastolic heart failure (CMS/HCC) Internal hemorrhoids Leukoencephalopathy Major depression single episode, in partial remission ([facility]) Metacarpal bone fracture Mitral valve disorder Purpura ([facility]) Peripheral arterial occlusive disease ([facility]) Primary osteoarthritis involving multiple joints Vision loss COPD (chronic obstructive pulmonary disease) ([facility]) Diarrhea Drug-induced constipation H/O mechanical aortic valve replacement Age-related osteoporosis with current pathological fracture Care Management Physical deconditioning Chronic heart failure with preserved ejection fraction (HFpEF) ([facility]) Paroxysmal atrial fibrillation ([facility]) Hypertension associated with type 2 diabetes mellitus ([facility]) Encounter for prophylactic measures, unspecified Graves' disease Cirrhosis of liver without ascites, unspecified hepatic cirrhosis type ([facility]) Stage 3b chronic kidney disease ([facility]) OLIVE (acute kidney injury) ([facility]) Medications: Current Outpatient Medications Medication Sig Dispense Refill acetaminophen (TYLENOL) 500 MG tablet Take 1 tablet (500 mg total) by mouth daily as needed. No more then 2500 mg per day. albuterol sulfate HFA 108 (90 Base) MCG/ACT inhaler Inhale 2 puffs into the lungs every 6 (six) hours as needed for Wheezing. 18 g 1 ALPRAZolam (XANAX) 0.5 MG tablet TAKE 1/2 (ONE-HALF) TABLET BY MOUTH NIGHTLY NEEDED FOR SLEEP 15tablet 0 Cholecalciferol (VITAMIN D3) 25 MCG (1000 UT) Cap Take 1,000 Units by mouth daily. furosemide (LASIX) 80 MG [...] mouth daily. (Patient not taking: Reported on 09/11/2022) 30 capsule 2 methIMAzole (TAPAZOLE) 10 MG [...] Take 1 tablet by mouth once daily (Patient taking differently: every evening.) 90 tablet 0 venlafaxine XR (EFFEXOR-XR) 150 MG 24 hr capsule Take 1 capsule (150 mg total) by mouth daily. 90 capsule 1 warfarin (COUMADIN) 1 MG tablet Take 1 tablet by mouth once daily 30 tablet 0 warfarin (COUMADIN) 6 MG tablet Take 1 tablet (6 mg total) by mouth daily. 30 tablet 0 No current facility-administered medications for this visit. Facility-Administered Medications Ordered in Other Visits Medication Dose Route Frequency Provider Last Rate Last Admin denosumab (PROLIA) injection 60 mg 60 mg Subcutaneous Once Panda Moreno MD Chronic Care Management- Time Spent with Patient Time spent with patient (minutes): 28 (Comment: Time with patient, Izzy and Chanel in the referral department.) Time spent performing chart review (minutes): 9 Total time (minutes): 37 CASEY JOHNSON RN I reviewed the patient's status and education provided by CASEY JOHNSON RN. I agree with the findings and recommendations made. Cosigned by Sanjeev Webster DO at 09/26/2022 4:20 PM CDT documented in this encounter Plan of Treatment Upcoming Encounters Date Type Department Care Team (Late st Contact Info) Description 04/14/2024 2:00 PM HUMAN PROJECTILE Office Visit [facility] Medical Group Multispecialty Care - [facility] [address] [facility], [address] [place] [phone] Julio Pulido MD [address] [place] [address] documented as of this encounter Goals Goal Patient Goal Type Associated Problems Recent Progress Patient-Stated? Author Health - patient able to perform ADLs independently General On track(2023 9:49 AM CDT) Casey Corona RN Note: 12/17/23: Patient stated she is independent with ASL's. Establish Plan for Symptom Monitoring-CHF General On track(2023 11:36 AM HUMAN PROJECTILE) Casey Corona RN Note: Patient will recognize [...] Symptom Monitoring-COPD General On track(2023 11:36 AM HUMAN PROJECTILE) Casey Corona RN Note: Patient will recognize [...] Symptom Monitoring-DM General On track(2023 4:33 PM HUMAN PROJECTILE) Casey Corona RN Note: Patient will manage [...] Symptom Monitoring-HTN General On track(2023 4:33 PM HUMAN PROJECTILE) Casey Corona RN Note: Patient will monitor [...] obstructive pulmonary disease, unspecified COPD type ([facility])- Primary Chronic heart failure with preserved ejection fraction (HFpEF) ([facility]) documented in this encounter Additional Health Concerns Assessment Noted Time PHQ-9 Depression Total Score: 3 12/24/19 22 11:48 AM CDT documented as of this encounter Care Teams Junior [employer] Teacher Relationship Specialty Start Date End Date Sanjeev Webster DO [address] [place] [id number] PCP - General FAMILY PRACTICE 09/25/20 Casey Johnson RN [address] [place] [address] Hospital Manager (Ambulatory) REGISTERED NURSE 08/14/20 documented as of this encounter
--- OUTSIDE RECORDS SUMMARY | 2024-03-15 00:58 | XMS_ITS | Encounter Summary ---
Author Organization [facility] Address [facility] [place] [address] [place] [address] Care Team Providers Care De Icer Installer Name Role Phone Dianne Johnson RN Unavailable [phone] Sanjeev Webster DO Primary Care Provider + Encounter Details Date Type Department Care Team (Late st Contact Info) Description 09/02/2022 Home Care Visit [facility] Home Care [address] [place] [address] [place] [address] Juan Pablo Carroll, RN [phone] (Work) CASE COMMUNICATION Social History Tobacco Use Types Packs/Day Years [...] Recorded Patient Health Questionnaire-2 Score 3 07/08/2022 [facility] - Occupational Stress [...] Author Status No 08/26/2022 7:46 PM [place] Call, RN Active documented as of this encounter Mental Status * Because of a physical, mental, or emotional condition, do you have serious difficulty concentrating, remembering, or making decisions? Answer Entry Date Author Status No 08/26/2022 7:46 PM CDT [place] Gunderson RN Active documented in this encounter Progress Notes * Juan Pablo Carroll RN - 09/02/2022 4:12 PM CDTSN called patient to set up SOC visit time, but patient stated she would be unavailable tomorrow all day, and would be best to try and call back early next week. Informed staff would call her when next visit is available and she was agreeable. Declined visit 09/03 documented in this encounter Plan of Treatment Upcoming Encounters Date Type Department Care Team (Late st Contact Info) Description 04/14/2024 2:00 PM CONSTRUCTION MANAGEMENT INSTRUCTOR Office Visit [facility] Medical Group Multispecialty Care - [facility] [address] [facility], [address] [place] [address] Julio Pulido MD [address] [place] [address] documented as of this encounter Goals Goal Patient Goal Type Associated Problems Recent Progress Patient-Stated? Author Health - patient able to perform ADLs independently General On track(2023 9:49 AM CDT) Dianne Corona RN Note: 12/17/23: Patient stated she is independent with ASL's. Establish Plan for Symptom Monitoring-CHF General On track(2023 11:36 AM CONSTRUCTION MANAGEMENT INSTRUCTOR) Dianne Corona RN Note: Patient will [...] Monitoring-COPD General On track(2023 11:36 AM CONSTRUCTION MANAGEMENT INSTRUCTOR) Dianne Corona RN Note: Patient will [...] Monitoring-DM General On track(2023 4:33 PM CONSTRUCTION MANAGEMENT INSTRUCTOR) Dianne Corona RN Note: Patient will [...] Monitoring-HTN General On track(2023 4:33 PM CONSTRUCTION MANAGEMENT INSTRUCTOR) Dianne Corona RN Note: Patient will [...] documented as of this encounter Care Teams De Icer Installer Relationship Specialty Start Date End Date Sanjeev Webster DO [address] [place] [id number] PCP - General FAMILY PRACTICE 09/25/20 Dianne Johnson, RN [address] [place] [address] Manager Architecture (Ambulatory) REGISTERED NURSE 08/14/20 documented as of this encounter
--- OUTSIDE RECORDS SUMMARY | 2024-03-15 00:58 | XMS_ITS | Encounter Summary ---
Author Organization [facility] Address [facility] [facility] [place] [address] [place] [address] Care Team Providers Care Racing Driver Name Role Phone Dianne Johnson RN Unavailable [phone] Sanjeev Webster DO Primary Care Provider + Reason for Visit * Reason Onset Date Comments Follow Up Call 09/24/2022 Encounter Details Date Type Department Care Team (Late st Contact Info) Description 09/24/2022 Telephone [facility] Family & Internal Medicine [id number] [place] [address] Sanjeev Webster DO [address] [place] [address] Follow Up Call Social History [...] Recorded Patient Health Questionnaire-2 Score 3 07/08/2022 [facility] [...] Progress Notes * Yenifer Wolf MA - 09/25/2022 4:05 PM CDTAddended by: YENIFER WOLF on: 09/25/2022 04:05 PM Modules accepted: Orders * Yenifer Wolf MA - 09/25/2022 4:04 PM CDT Spoke with patient and lab orders placed at front services agent. The patient is scheduled for Nurse visit todiscuss life alert. * Dianne Johnson RN - 09/24/2022 4:09 PM CDT Izzy ([id number]) on HIPAA called. She wants to know if any medications have changed. Plans on filling pill category planner tomorrow night. Informed Izzy patient is past due for a PT/INR and needs a BMP/CBC in 2 to 3 weeks from 09/11/22. CC will reach out to patient and find out where she wantslab work done. 09/24: Contacted patient. Stated she prefers to [...] to use it. Patient is requesting help. documented in this encounter Plan of Treatment Upcoming Encounters Date Type Department Care Team (Late st Contact Info) Description 04/14/2024 2:00 PM PLANT CARE WORKER Office Visit [facility] Multispecialty Care - [facility] [address], [address] [place] [address] Julio Pulido MD [address] [place] [address] documented as of this encounter Goals Goal Patient Goal Type Associated Problems Recent Progress Patient-Stated? Author Health - patient able to perform ADLs independently General On track(2023 9:49 AM CDT) Dianne Corona, RN Note: 12/17/23: Patient stated she is independent with ASL's. Establish Plan for Symptom Monitoring-CHF General On track(2023 11:36 AM PLANT CARE WORKER) Dianne Corona, RN Note: Patient will recognize [...] Symptom Monitoring-COPD General On track(2023 11:36 AM PLANT CARE WORKER) Dianne Corona, RN Note: Patient will recognize [...] Symptom Monitoring-DM General On track(2023 4:33 PM PLANT CARE WORKER) Dianne Corona RN Note: Patient will [...] Symptom Monitoring-HTN General On track(2023 4:33 PM PLANT CARE WORKER) Dianne Corona RN Note: Patient will [...] documented as of this encounter Care Teams Racing Driver Relationship Specialty Start Date End Date Sanjeev Webster DO [address] [place] [id number] PCP - General FAMILY PRACTICE 09/25/20 Dianne Johnson RN [address] [place] [address] Eeo Officer (Ambulatory) REGISTERED NURSE 08/14/20 documented as of this encounter
--- OUTSIDE RECORDS SUMMARY | 2024-03-15 00:58 | XMS_ITS | Encounter Summary ---
Author Organization [facility] Address [facility] [place] [address] [place] [address] Care Team Providers Care Interchange Agent Name Role Phone Dianne Johnson RN Unavailable [phone] Sanjeev Webster DO Primary Care Provider + Reason for Referral * Consultation (Urgent) - Closed Specialty Diagnoses / Procedures Referred By Contac t Referred To Contact CARDIOLOGY / Cardiology Diagnoses Chronic heart failure with preserved ejection fraction (HFpEF) ([facility]) Paroxysmal atrial fibrillation ([facility]) LBBB (left bundle branch block) Coronary artery disease involving [place] coronary artery of [place] heart without angina pectoris Procedures OFFICE/OUTPT VISIT,NEW,LEVL III OFFICE/OUTPT VISIT,NEW,LEVL IV OFFICE/OUTPT VISIT,NEW,LEVL V OFFICE/OUTPT VISIT,EST,LEVL III OFFICE/OUTPT VISIT,EST,LEVL IV OFFICE/OUTPT VISIT,EST,LEVL V Sanjeev Webster DO [address] [place] [address] Phone: tel: fax: Sania Gomez MD [facility] [address] [facility] [place] [address] Phone: tel: fax: Referral ID Status Reason Start Date Expiration Date V isits Requested Visits Authorized [id number] Closed Specialty Services 09/22/2022 09/23/2023 12 12 Reason for Visit * Reason Comments TCM Patient presents for a TCM visit. Patient was dx with hypotension, bladder infection, and pneumonia and admitted at [facility] Encounter Details Date Type Department Care Team (Late st Contact Info) Description 09/10/2022 10:40 AM CDT Office Visit [facility] Medical [facility] Family & Internal Medicine [facility] [address] [place] [address] Sanjeev Webster DO [address] [place] [address] TCM (Patient presents for a TCM visit. Patient was dx with hypotension, bladder infection, and pneumonia and admitted at [facility]) Social History Tobacco Use Types Packs/Day Years [...] week 08/26/2022 How often do you attend [facility] or [employer] services? More than 4 times [...] Recorded Patient Health Questionnaire-2 Score 3 07/08/2022 [facility] - Occupational Stress Questionnaire Answer Date [...] Sign Reading Time Taken Comments Blood Pressure 122/70 09/10/2022 10:42 AM CDT Pulse 60 09/10/2022 10:42 AM CDT Temperature 36.2 ??C (97.2 ??F) 09/10/2022 10:42 AM C DT Respiratory Rate 16 09/10/2022 10:42 AM CDT Oxygen Saturation 97% 09/10/2022 10:42 AM CDT Inhaled Oxygen Concentration - - Weight 83 kg (183 lb) 09/10/2022 10:42 AM CDT Height 165.1 cm (5' 5 ) 09/10/2022 10:42 AM CDT Body Mass Index 30.45 09/10/2022 10:42 AM CDT documented in this encounter Functional [...] 08/26/2022 7:46 PM CDIndiana Verdugo RN Active * Because of a physical, [...] Progress Notes * Sanjeevmaribel Webster, DO - 09/10/2022 10:40 AM CDT Images from the original note were not included. GENERAL OFFICE VISIT Encounter Date: 09/10/2022 Chief Complaint: 77-year-old female presents for TCM (Patient presents for a TCM visit. Patient was dx with hypotension, bladder infection, and pneumonia and admitted at [facility]) History of Present Illness: Transitional Care Note: Pt was admitted on: 08/29/22 Pt was discharged on: 09/02/22 Admit Diagnosis: OLIVE, UTI, Pneumonia Discharge Diagnosis: See above Initial Nursing contact: See telephone encounter on: 09/01/22 Discharge note from Lina Hurley [facility] was reviewed Per their summary: Radha Huynh is a 77-year-old female with PMH of CHF, HTN, A Fib with diagnostic evaluationnotable for orthostatic hypotension and possible UTI. As such I am concerned for continued decline.I will admit to med to provide appropriate level of care and treatment to patient as well as continued evaluation. Orthostatic Hypotension: Presents with dizziness intermittently for >1 mo Orthostatic VS + Appears volume depleted on exam Hold lasix, lisinopril Stop lisinopril at dc Restart lasix at small dose Metoprolol with hold parameters Gentle hydration, with close attention to volume status in context of HF Daily weights/I&O Resolved OLIVE on CKD3: From volume depletion/hypotension Improving with hydration 2.4>1.5>1.1 Baseline 1.2 Hold lisinopril/lasix Consider stopping gabapentin for does not continue to improve Avoid nephrotoxic agents Improved Possible UTI: UA suggestive of UTI Rocephin Follow urine culture , polymicrobial growth Stop ABX UTI ruled out Infiltrate vs Atelectasis: Noted on CXR Suspect atelectasis PCT negative x2 Rocephin as above for now, deescalate when able Suspect atelectasis , stop ABX Chronic HFrEF: Appears dry on exam Hold lasix in context of above Monitor for volume overload Daily weights Monitor I&O When diuretic is restarted at lower dose Follows with Dr. Lena Mcghee Fib history of mechanical valve : Follows with Continue metoprolol with hold parameters Warfarin for stroke prophlyaxis CAD: Continue BB as BP allows No chest pain Statin intolerant per allergy profile GERD: PPI Depression/Anxiety: Continue home regimen H/o PAOLA: On iron Trend H&H Neuropathy: Continue stopping gabapentin pending renal function COPD: Albuterol PRN No exacerbation Hyperthyroidism Continue methimazole Follows with endocrinology H/o Right MCA aneurysm Since Discharge: Radha has been doing better. 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 Swelling is controlled. No new symptoms. ROS: Review of Systems Constitutional: Negative for fever. Respiratory: Negative for shortness of breath. Cardiovascular: Negative for chest pain and leg swelling. Gastrointestinal: Negative for abdominal pain, nausea and vomiting. Genitourinary: Negative for dysuria. Psychiatric/Behavioral: Negative for depression. Medications: Current Outpatient Medications: acetaminophen (TYLENOL) 500 MG tablet, Take 1 tablet (500 mg total) by mouth daily as needed. No more then 2500 mg per day., Disp: , Rfl: albuterol sulfate HFA 108 (90 Base) MCG/ACT inhaler, Inhale 2 puffs into the lungs every 6 (six) hours as needed for Wheezing., Disp: 18 g, Rfl: 1 ALPRAZolam (XANAX) 0.5 MG tablet, TAKE 1/2 (ONE-HALF) TABLET BY MOUTH NIGHTLY NEEDED FOR SLEEP, Disp: 15 tablet, Rfl: 0 Cholecalciferol (VITAMIN D3) 25 MCG (1000 UT) Cap, Take 1,000 Units by mouth daily., Disp: , Rfl: furosemide (LASIX) 80 MG tablet, Take 0.5 tablets (40 mg total) by mouth daily., Disp: 30 tablet, Rfl: 0 gabapentin (NEURONTIN) 300 MG capsule, Take 1 capsule (300 mg total) by mouth 3 (three) times daily., Disp: 270 capsule, Rfl: 0 HYDROcodone-acetaminophen (NORCO) 10-325 MG tablet, Take 1 tablet by mouth every 6 (six) hours as needed for Pain. Indications: Chronic Pain Do not take with alprazolam., Disp: 30 tablet, Rfl: 0 iron polysaccharides (NIFEREX) 150 MG capsule, Take 1 capsule (150 mg total) by mouth daily., Disp:30 capsule, Rfl: 2 methIMAzole (TAPAZOLE) 10 MG tablet, Take 1 tablet (10 mg total) by mouth daily., Disp: 90 tablet, Rfl: 1 metoprolol tartrate (LOPRESSOR) 25 MG tablet, Take 0.5 tablets (12.5 mg total) by mouth 2 (two) times daily., Disp: 90 tablet, Rfl: 3 omeprazole (PRILOSEC) 20 MG capsule, Take 1 capsule by mouth once daily, Disp: 90 capsule, Rfl: 0 potassium chloride CR (K-TAB) 10 MEQ Tab CR tablet, Take 1 tablet by mouth once daily (Patient taking differently: every evening.), Disp: 90 tablet, Rfl: 0 venlafaxine XR (EFFEXOR-XR) 150 MG 24 hr capsule, Take 1 capsule (150 mg total) by mouth daily., Disp: 90 capsule, Rfl: 1 warfarin (COUMADIN) 1 MG tablet, Take 1 tablet by mouth once daily, Disp: 30 tablet, Rfl: 0 warfarin (COUMADIN) 6 MG tablet, Take 1 tablet (6 mg total) by mouth daily., Disp: 30 tablet, Rfl: 0 No current facility-administered medications for this visit. Facility-Administered Medications Ordered in Other Visits: denosumab (PROLIA) injection 60 mg, 60 mg, Subcutaneous, Once, Panda Moreno MD Current Outpatient Medications on File Prior to Visit Medication Sig acetaminophen (TYLENOL) 500 MG tablet Take 1 tablet (500 mg total) by mouth daily as needed. No more then 2500 mg per day. albuterol sulfate HFA 108 (90 Base) MCG/ACT inhaler Inhale 2 puffs into the lungs every 6 (six) hours as needed for Wheezing. ALPRAZolam (XANAX) 0.5 MG tablet TAKE 1/2 (ONE-HALF) TABLET BY MOUTH NIGHTLY NEEDED FOR SLEEP Cholecalciferol (VITAMIN D3) 25 MCG (1000 UT) Cap Take 1,000 Units by mouth daily. furosemide (LASIX) 80 MG tablet Take 0.5 tablets (40 mg total) by mouth daily. gabapentin (NEURONTIN) 300 MG capsule Take 1 [...] once daily (Patient taking differently: every evening.) venlafaxine XR (EFFEXOR-XR) 150 MG 24 hr capsule Take 1 capsule (150 mg total) by mouth daily. warfarin (COUMADIN) 1 MG tablet Take 1 tablet by mouth once daily warfarin (COUMADIN) 6 MG tablet Take 1 tablet (6 mg total) by mouth daily. Current Facility-Administered Medications on File Prior to Visit Medication denosumab (PROLIA) injection 60 mg Review of patient's allergies indicates: Allergen Reactions Atorvastatin Leg Pain Leg pain/cramps. Resolved after stopping. Tape Contact Dermatitis Bacitracin Other (see comment) Benzalkonium Other (see comment) Gramicidin Other (see comment) Hydrocortisone Other (see comment) Neomycin Other (see comment) Polymyxin B Other (see comment) Rosuvastatin Leg Pain Cramping in legs Patient Active Problem List Diagnosis Abnormal stress test Chronic anticoagulation Coronary artery disease involving [place] coronary artery of [place] heart without angina pectoris Dyspnea on exertion H/O mechanical aortic valve replacement Hypertensive heart disease with congestive heart failure (CMS/HCC) LBBB (left bundle branch block) Myopathy VAZQUEZ (obstructive sleep apnea) Paroxysmal atrial flutter (CMS/HCC) Benign hypertension with CKD (chronic kidney disease) stage III (CMS/HCC) Memory deficits Hearing deficit, bilateral History of [...] of thoracic vertebra (CMS/HCC) Depression Diabetic polyneuropathy (CMS/HCC) Disorder of rotator cuff Diverticular disease [...] sixth thoracic vertebra, initial encounter ([facility]/HCC) Chest pain Contusion of scalp Knee pain Localized, primary osteoarthritis Osteoarthritis of knee Traumatic closed displaced fracture of distal end of radius Shoulder joint pain Hyperlipidemia associated with type 2 diabetes mellitus (CMS/HCC) PVD (peripheral vascular disease) (CMS/HCC) Hematoma Anxiety Diastolic heart failure (CMS/HCC) Internal hemorrhoids Leukoencephalopathy Major depression single episode, in partial remission (CMS/HCC) Metacarpal bone fracture Mitral valve disorder Purpura (CMS/HCC) Peripheral arterial occlusive disease (CMS/HCC) Primary osteoarthritis involving multiple joints Vision loss COPD (chronic obstructive pulmonary disease) (CMS/HCC) Diarrhea Drug-induced constipation H/O mechanical aortic valve replacement Age-related osteoporosis with current pathological fracture Care Management Physical deconditioning Chronic heart failure with preserved ejection fraction (HFpEF) (CMS/HCC) Paroxysmal atrial fibrillation (CMS/HCC) Hypertension associated with type 2 diabetes mellitus (CMS/HCC) Encounter for prophylactic measures, unspecified Graves' disease Cirrhosis of liver without ascites, unspecified hepatic cirrhosis type (CMS/HCC) Stage 3b chronic kidney disease (CMS/HCC) OLIVE (acute kidney injury) (CMS/HCC) 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 Anxiety Atrial fibrillation with rapid ventricular response (CMS/HCC) 08/22/2020 Atrial flutter (CMS/HCC) Cataract Chronic anticoagulation due to mechanical heart valve Chronic pain Diabetes mellitus (CMS/HCC) H/O mechanical aortic valve replacement 2003 Hypertension Kidney stone 02/03/2017 On amiodarone therapy 05/21/2021 Past Surgical History: Procedure Laterality Date REPAIR HEART WOUND Social History Socioeconomic History Marital status: Tobacco Use Smoking status: Never Passive exposure: Past Smokeless tobacco: Never Tobacco comments: non smoker Vaping Use Vaping Use: Never used Substance and Sexual Activity Alcohol use: Not Currently Drug use: Yes Types: Hydrocodone Comment: chronic pain Social Determinants of Health Financial Resource Strain: [...] and Family: Three times a week Attends Zoroastrianism Services: More than 4 times per year [...] Family Status Relation Name Status Father Mother Objective: Filed Vitals: 09/10/22 1042 BP: 122/70 Pulse: 60 Resp: 16 Temp: 97.2 ??F (36.2 ??C) TempSrc: Skin SpO2: 97% Weight: 83 kg (183 lb) Height: 5' 5 (1.651 m) Physical Exam Vitals and nursing note reviewed. [...] Diagnoses and all orders for this visit: [place]) [place] - BASIC METABOLIC PANEL; Future - CBC W/DIFF AUTOMATED; Future - VENIPUNC ARM DRAW - CBC W/DIFF AUTOMATED - BASIC METABOLIC PANEL Chronic heart failure with preserved ejection fraction (HFpEF) [place] - Ambulatory referral to Cardiology, Adult ([facility]) Paroxysmal atrial fibrillation [place] - Ambulatory referral to Cardiology, Adult ([facility]) LBBB (left bundle branch block) - Ambulatory referral to Cardiology, Adult ([facility]) Coronary artery disease involving [place] coronary artery of [place] heart without angina pectoris - Ambulatory referral to Cardiology, Adult ([facility]) Chronic anticoagulation - PROTIME/INR, VENOUS; Future - PROTIME/INR, VENOUS Other chronic pain - HYDROcodone-acetaminophen (NORCO) 10-325 MG tablet; Take 1 tablet by mouth every 6 (six) hours asneeded for Pain. Indications: Chronic Pain Do not take with alprazolam. Discussion & Summary: 1. Medications/DME - Continue current medications. If needs increase in furosemide in the future, consider alternating between 40 and 80 mg to reduce changes of over diuresis. Also consider reducing gabapentin. 2. Lab/Diagnostics - See orders. 3. Education - Current treatment discussed and patient education given as appropriate. 4. Referrals - Will refer to our cardiology team. 5. RTC - 1 month(s) Sanjeev Webster DO documented in this encounter Plan of Treatment Upcoming Encounters Date Type Department Care Team (Late st Contact Info) Description 04/14/2024 2:00 PM LEAD JAVASCRIPT DEVELOPER Office Visit [facility] Medical Group Multispecialty Care - [facility] [address] [facility], [address] [facility] [place] [address] Julio Pulido MD [address] [place] [address] Scheduled Referrals Name Type Priority Associated Diagnoses Orde r Schedule Ambulatory referral to Cardiology, Adult ([facility]) Referral Routine Chronic heart failure with preserved ejection fraction (HFpEF) ([facility] HHS/HCC) Paroxysmal atrial fibrillation ([facility]) LBBB (left bundle branch block) Coronary artery disease involving [place] coronary artery of [place] heart without angina pectoris Ordered: 09/10/2022 documented as of this encounter Goals Goal Patient Goal Type Associated Problems Recent Progress Patient-Stated? Author Health - patient able to perform ADLs independently General On track(2023 9:49 AM CDT) Dianne Corona RN Note: 12/17/23: Patient stated she is independent with ASL's. Establish Plan for Symptom Monitoring-CHF General On track(2023 11:36 AM LEAD JAVASCRIPT DEVELOPER) Dianne Corona, RN Note: Patient will recognize [...] Symptom Monitoring-COPD General On track(2023 11:36 AM LEAD JAVASCRIPT DEVELOPER) Dianne Corona, RN Note: Patient will recognize [...] Symptom Monitoring-DM General On track(2023 4:33 PM LEAD JAVASCRIPT DEVELOPER) Dianne Corona RN Note: Patient will manage [...] Symptom Monitoring-HTN General On track(2023 4:33 PM LEAD JAVASCRIPT DEVELOPER) Dianne Corona, RN Note: Patient will monitor [...] Associated Diagnosis Comments PROTHROMBIN TIME, VENOUS Routine 09/10/2022 11:36 AM CDT Chronic anticoagulation BASIC METABOLIC PANEL Routine 09/10/2022 11:36 AM CDT OLIVE (acute kidney injury) CBC W/DIFF AUTOMATED Routine 09/10/2022 11:36 AM CDT OLIVE (acute kidney injury) COLLECTION VENOUS BLOOD VENIPUNCTURE Routine 09/10/2022 11:13 AM CDT OLIVE (acute kidney injury) documented in this encounter Results * (ABNORMAL) PROTIME/INR, VENOUS (09/10/2022 11:36 AM CDT) PROTIME 17.4(H) 9.3 - 11.6 SEC 09/10/2022 3:14 PM CDT [facility] INR 1.8(H) 0.9 - 1.1 09/10/2022 3:14 PM CDT [facility] Comment: TREATMENT OR PROPHYLAXIS AGAINST: ?? THERAPEUTIC RANGE (INR): ?VENOUS THROMBOSIS ? 2.0-3.0 ?PULMONARY EMBOLUS ? 2.0-3.0 ?? MECHANICAL PROSTHETIC VALVES ? 2.5-3.5 09/10/2022 11:3 6 AM CDT Sanjeev Webster DO LABORATORY Final Re sult [facility] [address] [place] [address], * (ABNORMAL) CBC W/DIFF AUTOMATED (09/10/2022 11:36 AM CDT) [facility] WBC 6.82 4.00 - 10.80 x10'3/uL 09/10/2022 7:28 PM CDT [facility] RBC 3.63(L) 4.10 - 5.40 x10'6/uL 09/10/2022 7:28 PM CDT [facility] HGB 11.8(L) 12.0 - 16.0 G/DL 09/10/2022 7:28 PM CDT [facility] HCT 38.1 36.0 - 47.0 % 09/10/2022 7:28 PM CDT [facility] MCV 105.0(H) 78.0 - 100.0 FL 09/10/2022 7:28 PM CDT [facility] MCH 32.5(H) 27.0 - 31.0 PG 09/10/2022 7:28 PM CDT [facility] MCHC 31.0(L) 33.0 - 36.0 G/DL 09/10/2022 7:28 PM CDT [facility] RDW 12.3 11.5 - 14.5 % 09/10/2022 7:28 PM CDT [facility] 294 150 - 350 x10'3/uL 09/10/2022 7:28 PM CDT [facility] MPV 12.3(H) 7.4 - 10.4 FL 09/10/2022 7:28 PM CDT [facility] DIFFERENTIAL TYPE AUTOMATED DIFFERENTIAL 09/10/2022 7:28 PM CDT [facility] NEUTROPHILS % 64.9 % 09/10/2022 7:28 PM CDT [facility] LYMPHOCYTES % 20.1 % 09/10/2022 7:28 PM CDT [facility] MONOCYTES % 11.0 % 09/10/2022 7:28 PM CDT [facility] EOSINOPHILS % 2.6 % 09/10/2022 7:28 PM CDT [facility] BASOPHILS % 1.3 % 09/10/2022 7:28 PM CDT [facility] IMMATURE GRANS % 0.1 % 09/10/2022 7:28 PM CDT [facility] ABS. NEUTROPHILS 4.42 1.60 - 8.30 x10'3/uL 09/10/2022 7:28 PM CDT [facility] ABS. LYMPHOCYTES 1.37 0.80 - 4.70 x10'3/uL 09/10/2022 7:28 PM CDT [facility] ABS. MONOCYTES 0.75 0.00 - 1.50 x10'3/uL 09/10/2022 7:28 PM CDT [facility] ABS. EOSINOPHILS 0.18 0.00 - 0.40 x10'3/uL 09/10/2022 7:28 PM CDT [facility] ABS. BASOPHILS 0.09 0.00 - 0.20 x10'3/uL 09/10/2022 7:28 PM CDT [facility] ABS. IMMATURE GRANULOCYTES 0.01 0.00 - 0.03 x10'3/uL 09/10/2022 7:28 PM CDT [facility] 09/10/2022 11:3 6 AM CDT us Sanjeev Webster DO LABORATORY Final Re sult [facility] [address] [place] [address], * (ABNORMAL) BASIC METABOLIC PANEL (09/10/2022 11:36 AM CDT) SODIUM S/P/B 138 136 - 145 MMOL/L 09/10/2022 7:48 PM CDT [facility] POTASSIUM S/P/B 4.7 3.5 - 5.1 MMOL/L 09/10/2022 7:48 PM CDT [facility] CHLORIDE S/P/B 104 98 - 107 MMOL/L 09/10/2022 7:48 PM CDT [facility] CO2 29.2 21 - 32 MMOL/L 09/10/2022 7:48 PM CDT [facility] GLUCOSE 88 70 - 99 MG/DL 09/10/2022 7:48 PM CDT [facility] BUN 24(H) 7 - 18 MG/DL 09/10/2022 7:48 PM CDT [facility] CREATININE S/P/B 1.39(H) 0.55 - 1.02 MG/DL 09/10/2022 7:48 PM CDT [facility] CALCIUM S/P/B 10.8(H) 8.4 - 10.5 MG/DL 09/10/2022 7:48 PM CDT [facility] ANION GAP 4.8(L) 5 - 15 MMOL/L 09/10/2022 7:48 PM CDT [facility] Comment:REFERENCE RANGE NOT ESTABLISHED OSMOLALITY (CALC) 289 MOSM/KG 023 7:48 PM CDT [facility] Comment:REFERENCE RANGE NOT ESTABLISHED GFR ESTIMATE 39(L) >90 ML/MIN/1. 73 M2 09/10/2022 7:48 PM CDT [facility] GFR NOTES GFR REFERENCE S: 09/10/2022 7:48 PM CDT [facility] Comment: THE ESTIMATED GFR IS CALCULATED USING [...] ml/min/1.73 m2 G5,KIDNEY FAILURE: <15 ml/min/1.73 m2 09/10/2022 11:3 6 AM CDT us Sanjeev Webster DO LABORATORY Final Re sult -[facility] [place] [address] [place] [address], [place] [phone] documented in this encounter Visit Diagnoses Diagnosis OLIVE (acute kidney injury) ([facility])- Primary Acute kidney failure, unspecified Chronic heart failure with preserved ejection fraction (HFpEF) ([facility]) Paroxysmal atrial fibrillation ([facility]) Atrial fibrillation LBBB (left bundle branch block) Other left bundle branch block Coronary artery disease involving [place] coronary artery of [place] heart without angina pectoris Chronic anticoagulation Encounter for long-term (current) use of anticoagulants Other chronic pain documented in this encounter Additional Health Concerns Assessment Noted Time PHQ-9 Depression Total Score: 3 12/24/19 22 11:48 AM CDT documented as of this encounter Care Teams Interchange Agent Relationship Specialty Start Date End Date Sanjeev Webster DO [address] [place] [id number] PCP - General FAMILY PRACTICE 09/25/20 Dianne Johnson, RN [address] [place] [address] [address] [employer] (Ambulatory) REGISTERED NURSE 08/14/20 documented as of this encounter
--- OUTSIDE RECORDS SUMMARY | 2024-03-15 00:58 | XMS_ITS | Encounter Summary ---
Author Organization [facility] Address [facility]6 [facility] [place] [address] [place] [address] Care Team Providers Care Sound Installation Worker Name Role Phone Dianne Johnson RN Unavailable [phone] Sanjeev Webster DO Primary Care Provider + Reason for Visit * Reason Onset Date Comments [facility] 09/01/2022 [facility] 08/26-08/29 Encounter Details Date Type Department Care Team (Late st Contact Info) Description 09/01/2022 Patient Outreach [facility] Family & Internal Medicine [address] [address] Dianne Johnson, RN [address] [place] [address] [facility] ([facility] 08/26-08/29) Social History Tobacco Use Types Packs/Day Years [...] Patient Health Questionnaire-2 Score 3 07/08/2022 [facility] - Occupational Stress Questionnaire Answer [...] Notes * Dianne Johnson RN - 09/01/2022 7:29 AM CDT Follow up call to patient post hospitalization Patient admitted to [facility] on 08/26/22 with discharge diagnosis of: OLIVE. Discharge date: 08/29/22 Date of Contact: 09/02/22 Patient Status: (Including education, discharge instructions, s/sx to infection, and when to seek medical attn) Contacted patient today. Confirmed appointment with on 09/10/22 at 10:40 am and appointment with on 09/12/22 at 11:00 am. Reviewed D/C instructions and informed she needs aBMP by 09/05/22. CC sent message to [facility] to collect. Patient is aware. Patient's furosemide has been decrease to 40 mg from 80 mg. Educated patient on the importance of monitoring for s/s of CHF very closely. At the onset of any changes encouraged to contact CC or office to help prevent a readmission. Patient c/o right leg and foot swelling yesterday. Better today. Used inhaler a couple of times since home due to sob. Wears depends due to incontinenceof urine. Voids 4 or 5 times during night keeping her awake. Message sent to 's nursing team. Encouraged patient to weigh every morning, before breakfast, after voiding, with same clothing, on same scale and record readings. If weight gain of 3 lbs over night to contact CC or PCP office. Encouraged patient to record B/P readings. Bring B/P readings and weights to upcoming appt with PCP. Patient stated she can't find her B/P monitor. Stated she will look for it. Patient has [employer] insurance. Encourage patient to get new B/P monitor with [employer] card for OTC products. Patient stated she threw card away. Encouraged her to contact [employer] to get a new OTC product card. Patient verbalizes understanding. Denies any dizziness or lightheadedness at this time. Reports appetite pretty good. Stated she eats TV dinners, sandwiches and rotisserie chicken. Educated patient on the importance of low sodium diet of 2300 mg daily or less. TV dinners and lunch meat are high in sodium. Patient verbalizes understanding. Stated she is drinking lots of water. BM today. Denies falls or feeling like she may fall. Deniesissues with s/s of bleeding. WT: 177 on Thursday. Reports bilateral knee pain and leg cramps again atnight. Message sent to PCP nursing team. Patient stated she is taking furosemide every morning around 8:00 am. Izzy fixes pill workforce planner for her. Encouraged patient to f/u with PCP on 09/10/22 or call before that time if needed. 09/01/22: Contacted Izzy and reviewed medication list. See below for questions she has about iron supplement. The following message sent to nursing team: Please address the following: Do any medications need refilled: Yes, Izzy ([id number]) on HIPAA requesting refill on warfarin 6 mg and methimazole 10 mg sent to [facility]. 2. FYI [facility] will begin start of care in 1 to 2 days. According to D/C instructions: BMP completed by 09/05/22. [facility] nurse will collect. Please advise if request any other lab workdone. 3. Last PT/INR: 08/29/22 0635 PROTIME 9.1 - 12.4 SEC 27.2 High INR 2.4 When does patient need PT/INR done again? Please advise. 4. Furosemide decreased to 40 mg daily from 80 mg. Lisinopril discontinued. Patient c/o right leg and foot swelling yesterday. Better today. Used inhaler a couple of times since home due to sob. Wears depends due to incontinence of urine. Voids 4 or 5 times during night keeping her awake. 5. FYI: Patient c/o bilateral knee pain and cramps in legs again at h.s. 6. FYI: Encouraged patient to check weight and B/P daily if able and bring recordings to upcoming appointment. Stated weight 177. Same as when she was seen by prior to hospitalization. 7. Izzy stated patient was taking Ferrous sulfate and not iron polysaccharides 150 mg daily. Patient stopped taking Ferrous sulfate due to incontinence of BM. She is no longer having this issue. Anshulawants to know if patient should be on iron supplement. Please call her. Pertinent Labs: 08/29/22 0635 WBC 4.4 - 11.0 x10'3/uL 4.81 RBC 4.50 - 5.10 x10'6/uL 2.67 Low HGB 12.3 - 15.3 G/DL 8.8 Low HCT 35.9 - 44.6 % 27.9 Low MCV 80.0 - 96.0 FL 104.5 High MCH 25.3 - 30.9 PG 33.0 High MCHC 31.0 - 34.1 G/DL 31.5 RDW 12.4 - 15.1 % 12.1 Low PLT 151 - 353 x10'3/uL 188 MPV 9.6 - 12.0 FL 12.3 High RBC MORPHOLOGY NORMAL PLT MORPH. NORMAL WBC MORPHOLOGY NORMAL LYMPHOCYTES 15.8 - 45.0 % 33.1 NEUTROPHILS 42.1 - 71.9 % 50.3 MONOCYTES 5.7 - 12.5 % 11.0 EOSINOPHILS 0.0 - 5.6 % 4.0 BASOPHILS 0.0 - 1.3 % 1.2 ABS. NEUTROPHILS 1.40 - 6.00 x10'3/uL 2.42 IMMATURE GRANS 0.0 - 0.5 % 0.4 ABS. LYMPHOCYTES 0.80 - 4.70 x10'3/uL 1.59 08/29/22 0635 PROTIME 9.1 - 12.4 SEC 27.2 High INR 2.4 08/29/22 0635 GLUCOSE 70 - 99 MG/DL 74 BUN 7 - 18 MG/DL 22 High CREATININE S/P/B 0.55 - 1.02 MG/DL 0.99 SODIUM S/P/B 136 - 145 MMOL/L 146 High POTASSIUM S/P/B 3.5 - 5.1 MMOL/L 4.7 CHLORIDE S/P/B 100 - 108 MMOL/L 115 High CO2 21 - 32 MMOL/L 22.8 CALCIUM S/P/B 8.5 - 10.1 MG/DL 10.4 High ANION GAP 5 - 15 MMOL/L 8.2 BUN CREATININE RATIO 22.2 GFR ESTIMATE >90 ML/MIN/1.73 M2 58 Low 08/26/22 1749 COLOR (U) YELLOW TRANSPARENCY HAZY SPECIFIC GRAVITY (U) 1.000 - 1.030 <1.005 U PH 5.0 - 9.0 5.0 LEUKOCYTES (U) NEGATIVE 2+ Abnormal NITRITES NEGATIVE NEGATIVE PROTEIN (U) NEGATIVE NEGATIVE GLUCOSE (U) NEGATIVE NEGATIVE KETONES (U) NEGATIVE NEGATIVE BILIRUBIN (U) NEGATIVE NEGATIVE BLOOD (U) NEGATIVE NEGATIVE WBC/HPF 0 - 5 /HPF 10-25 RBC/HPF 0 - 5 /HPF 0-5 EPI/HPF /HPF MODERATE CULTURE & SENSITIVITY INDICATED? SPECIMEN SETUP FOR CULTURE BACTERIA (U) /HPF MODERATE URINE ROBISON FEW Pertinent Procedures/Imaging performed while inpatient: 08/26/22: XR Chest: Impression: 1. Cardiomegaly and slight central vascular congestion. 2. Mild indistinct left basilar atelectasis or infiltrate. Discharge Disposition: Home with Home Health - [facility]. Sent message to [facility]. Start of care will begin in 1 to 2 days and BMP will be collected. Any follow up appointments needed to be scheduled: no Future Appointments Date Time Provider Department Center 09/10/2022 10:40 AM Sanjeev Webster DO [id number] 09/12/2022 11:00 AM Panda Moreno MD [facility] Referrals needed: no Any follow up labs/imaging needed: yes - BMP - complete by 09/05/22. PT/INR: Defer to PCP. Not indicated on D/C summary. Have lab/imaging orders been placed: Yes Allergies: Review of patient's allergies indicates: Allergen Reactions Atorvastatin Leg Pain Leg pain/cramps. Resolved after stopping. Tape Contact Dermatitis Bacitracin Other (see comment) Benzalkonium Other (see comment) Gramicidin Other (see comment) Hydrocortisone Other (see comment) Neomycin Other (see comment) Polymyxin B Other (see comment) Rosuvastatin Leg Pain Cramping in legs Medications: Outpatient medications have been reconciled with hospital discharge list. See below for changes. Current Outpatient Medications Medication Sig Dispense Refill [...] not take with alprazolam. 30 tablet 0 methIMAzole (TAPAZOLE) 10 MG tablet Take 1 [...] by mouth once daily 30 tablet 0 iron polysaccharides (NIFEREX) 150 MG capsule Take 1 capsule (150 mg total) by mouth daily. (Patient not taking: Reported on 09/02/2022) 30 capsule 2 No current facility-administered medications for this visit. Facility-Administered Medications Ordered in Other Visits Medication Dose Route Frequency Provider Last Rate Last Admin denosumab (PROLIA) injection 60 mg 60 mg Subcutaneous Once Panda Moreno MD Medication Changes or Discontinued Medications: Stop Lisinopril Does patient have difficulty affording medication: No Do any medications need refilled: Yes, Izzy ([id number]) on HIPAA requesting refill on warfarin 6 mg and methimazole 10 mg sent to [facility]. Does patient have access to care and [...] notifying provider Establish Plan for Symptom Monitoring-HTN Not on track Patient will monitor B/P several times per week , record readings and report to physician or CC if B/P consistently >130/80 Take your medications as prescribed. Follow up with your provider as scheduled. Take your blood pressure at least several times a week if able. Plan of Care: F/U with on 09/10/22 or call before that time if needed. BMP complete by 09/05/22. change management coordinator will continue to follow up by phone, provide resources when needed, educate on disease management, and assess chronic conditions. documented in this encounter Plan of Treatment Upcoming Encounters Date Type Department Care Team (Late st Contact Info) Description 04/14/2024 2:00 PM LOW ALTITUDE AIR DEFENSE GUNNER Office Visit [facility] Multispecialty Care - [facility] 3 [facility], [address] [place] [id number] Julio Pulido MD [address] [place] [address] documented as of this encounter Goals Goal Patient Goal Type Associated Problems Recent Progress Patient-Stated? Author Health - patient able to perform ADLs independently General On track(2023 9:49 AM CDT) Dianne Corona RN Note: 12/17/23: Patient stated she is independent with ASL's. Establish Plan for Symptom Monitoring-CHF General On track(2023 11:36 AM LOW ALTITUDE AIR DEFENSE GUNNER) Dianne Corona RN Note: Patient will recognize [...] Symptom Monitoring-COPD General On track(2023 11:36 AM LOW ALTITUDE AIR DEFENSE GUNNER) Dianne Corona RN Note: Patient will recognize [...] Symptom Monitoring-DM General On track(2023 4:33 PM LOW ALTITUDE AIR DEFENSE GUNNER) Dianne Corona RN Note: Patient will manage [...] Symptom Monitoring-HTN General On track(2023 4:33 PM LOW ALTITUDE AIR DEFENSE GUNNER) Dianne Corona RN Note: Patient will monitor [...] documented as of this encounter Care Teams Sound Installation Worker Relationship Specialty Start Date End Date Sanjeev Webster DO [address] [place] [id number] PCP - General FAMILY PRACTICE 09/25/20 Dianne Johnson RN [address] [place] [address] Ethanol Quality Leader (Ambulatory) REGISTERED NURSE 08/14/20 documented as of this encounter
--- OUTSIDE RECORDS SUMMARY | 2024-03-15 00:58 | XMS_ITS | Encounter Summary ---
Author Organization [facility] Address [facility]6 [facility] [place] [address] [place] [address] Care Team Providers Care It Professional Name Role Phone Dianne Johnson RN Unavailable [phone] Sanjeev Webster DO Primary Care Provider + Encounter Details Date Type Department Care Team (Latest Contact Info) Description 09/10/2022 Travel Social History Tobacco Use Types Packs/Day [...] How often do you attend chur or alevism services? More than 4 times [...] Recorded Patient Health Questionnaire-2 Score 3 07/08/2022 [facility] of Occupat [...] Assessment Author Status No 08/26/2022 7:46 PM Indaina Call RN Active * Do you have [...] Contact Info) Description 04/14/2024 2:00 PM AIR BAG CURER Office Visit [facility] Multispecialty Care - [facility] 3 [facility], [address] [place] [address] Julio Pulido MD 3 [place] [address] documented as of this encounter Goals Goal Patient Goal Type Associated Problems Recent Progress Patient-Stated? Author Health - patient able to perform ADLs independently General On track(2023 9:49 AM CDT) Dianne Corona RN Note: 12/17/23: Patient stated she is independent with ASL's. Establish Plan for Symptom Monitoring-CHF General On track(2023 11:36 AM AIR BAG CURER) Dianne Corona RN Note: Patient will recognize [...] Monitoring-COPD General On track(2023 11:36 AM AIR BAG CURER) Dianne Corona RN Note: Patient will recognize [...] Monitoring-DM General On track(2023 4:33 PM AIR BAG CURER) Dianne Corona RN Note: Patient will manage [...] Monitoring-HTN General On track(2023 4:33 PM AIR BAG CURER) Dianne Corona, RN Note: Patient will monitor [...] documented as of this encounter Care Teams It Professional Relationship Specialty Start Date End Date Sanjeev Webster DO [address] [place] [address] PCP - General FAMILY PRACTICE 09/25/20 Dianne Johnson, RN [address] [place] [address] Family Preservation Officer (Ambulatory) REGISTERED NURSE 08/14/20 documented as of this encounter
--- OUTSIDE RECORDS SUMMARY | 2024-03-15 00:58 | XMS_ITS | Encounter Summary ---
Author Organization [facility] Address [facility]6 [place] [place] [address] [place] [address] Care Team Providers Care Reimbursement Auditor Name Role Phone Dianne Johnson RN Unavailable [phone] Sanjeev Webster DO Primary Care Provider + Reason for Visit * Reason Onset Date Comments Lab Results 09/13/2022 Encounter Details Date Type Department Care Team (Late st Contact Info) Description 09/13/2022 Telephone [facility] Family & Internal Medicine [address] [place] [address] Sanjeev Webster DO [address] [place] [address] Lab Results Social History Tobacco [...] Status No 08/26/2022 7:46 PM CDT [place] Gundreson RN Active documented in this encounter Progress Notes * Herlinda Torres MA - 09/13/2022 8:31 AM CDT Patient was contacted regarding INR via telephone encounter dated 09/11/22 * Herlinda Torres MA - 09/13/2022 8:31 AM CDT ----- Message from Sanjeev Webster DO sent at 09/11/2022 8:31 AM CDT ----- Pt's kidney function is decreasing again; we need to have her alternate 20 mg and 40 mg of furosemide on alternating days to see if this will control her swelling and not put her into renal failure. PT/INR is lower than ideal; have her increase from 7 mg daily to 8 mg daily for the next 3 days. Other labs are acceptable or improving. Repeat PT/INR in 1 week. Repeat BMP and CBC in 2-3 weeks. documented in this encounter Plan of Treatment Upcoming Encounters Date Type Department Care Team (Late st Contact Info) Description 04/14/2024 2:00 PM SWIMMER Office Visit [facility] Multispecialty Care - [facility] 3 [facility], [address] [place] [phone] Julio Pulido MD [address] [place] [address] documented as of this encounter Goals Goal Patient Goal Type Associated Problems Recent Progress Patient-Stated? Author Health - patient able to perform ADLs independently General On track(2023 9:49 AM CDT) Dianne Corona RN Note: 12/17/23: Patient stated she is independent with ASL's. Establish Plan for Symptom Monitoring-CHF General On track(2023 11:36 AM SWIMMER) Dianne Corona RN Note: Patient will recognize [...] Symptom Monitoring-COPD General On track(2023 11:36 AM SWIMMER) Dianne Corona RN Note: Patient will recognize [...] Symptom Monitoring-DM General On track(2023 4:33 PM SWIMMER) Dianne Corona RN Note: Patient will manage [...] Symptom Monitoring-HTN General On track(2023 4:33 PM SWIMMER) No Dianne Johnson, RN Note: Patient will [...] documented as of this encounter Care Teams Reimbursement Auditor Relationship Specialty Start Date End Date Sanjeev Webster DO [address] [place] [phone] PCP - General FAMILY PRACTICE 09/25/20 Dianne Johnson, RN [address] [place] [address] Senior Strategy Manager (Ambulatory) REGISTERED NURSE 08/14/20 documented as of this encounter
--- OUTSIDE RECORDS SUMMARY | 2024-03-15 00:58 | XMS_ITS | Encounter Summary ---
Author Organization [facility] Address [facility] [facility] [place] [address] [place] [address] Care Team Providers Care Agricultural Extension Specialist Name Role Phone Dianne Johnson RN Unavailable [phone] Sanjeev Webster DO Primary Care Provider + Reason for Visit * Reason Onset Date Comments Follow Up Call 09/01/2022 Encounter Details Date Type Department Care Team (Late st Contact Info) Description 09/01/2022 Telephone [facility] Med/Surg [address] [place] [address] Barbara Mazariegos, RN Follow Up Call Social History Tobacco Use [...] Recorded Patient Health Questionnaire-2 Score 3 07/08/2022 [facility] Questionnaire Answer Date [...] Contact Info) Description 04/14/2024 2:00 PM MEDICAL STAFF CREDENTIALING COORDINATOR Office Visit [facility] Multispecialty Care - [facility] 3 [facility], [address] [place] [address] Julio Pulido MD 3 [place] [address] documented as of this encounter Goals Goal Patient Goal Type Associated Problems Recent Progress Patient-Stated? Author Health - patient able to perform ADLs independently General On track(2023 9:49 AM CDT) Dianne Corona RN Note: 12/17/23: Patient stated she is independent with ASL's. Establish Plan for Symptom Monitoring-CHF General On track(2023 11:36 AM MEDICAL STAFF CREDENTIALING COORDINATOR) Dianne Corona RN Note: Patient will [...] Monitoring-COPD General On track(2023 11:36 AM MEDICAL STAFF CREDENTIALING COORDINATOR) Dianne Corona RN Note: Patient will [...] Monitoring-DM General On track(2023 4:33 PM MEDICAL STAFF CREDENTIALING COORDINATOR) Dianne Corona RN Note: Patient will [...] Monitoring-HTN General On track(2023 4:33 PM MEDICAL STAFF CREDENTIALING COORDINATOR) Dianne Corona, RN Note: Patient will monitor [...] documented as of this encounter Care Teams Agricultural Extension Specialist Relationship Specialty Start Date End Date Sanjeev Webster DO [address] [place] [id number] PCP - General FAMILY PRACTICE 09/25/20 Dianne Johnson, RN [address] [place] [address] Project Management Engineer (Ambulatory) REGISTERED NURSE 08/14/20 documented as of this encounter
--- OUTSIDE RECORDS SUMMARY | 2024-03-15 00:58 | XMS_ITS | Encounter Summary ---
Author Organization [facility] Address [facility]6 [facility] [address] [place] [address] Care Team Providers Care Occupational Therapist Per Diem Name Role Phone Dianne Johnson RN Unavailable [phone] Sanjeev Webster DO Primary Care Provider + Encounter Details Date Type Department Care Team (Latest Contact Info) Description 09/26/2022 Travel Social History Tobacco Use Types Packs/Day [...] Recorded Patient Health Questionnaire-2 Score 3 07/08/2022 [facility] Occupat ional [facility] [...] st Contact Info) Description 04/14/2024 2:00 PM POOL TABLE MECHANIC Office Visit [facility] Multispecialty Care - [facility] 3 [facility], [address] [place] [address] Julio Pulido MD [address] [place] [address] documented as of this encounter Goals Goal Patient Goal Type Associated Problems Recent Progress Patient-Stated? Author Health - patient able to perform ADLs independently General On track(2023 9:49 AM CDT) Dianne Corona RN Note: 12/17/23: Patient stated she is independent with ASL's. Establish Plan for Symptom Monitoring-CHF General On track(2023 11:36 AM POOL TABLE MECHANIC) Dianne Corona RN Note: Patient will [...] Symptom Monitoring-COPD General On track(2023 11:36 AM POOL TABLE MECHANIC) Dianne Corona RN Note: Patient will [...] Symptom Monitoring-DM General On track(2023 4:33 PM POOL TABLE MECHANIC) Dianne Corona RN Note: Patient will [...] Symptom Monitoring-HTN General On track(2023 4:33 PM POOL TABLE MECHANIC) Dianne Corona, RN Note: Patient will monitor [...] documented as of this encounter Care Teams Occupational Therapist Per Diem Relationship Specialty Start Date End Date Sanjeev Webster DO [address] [place] [phone] PCP - General FAMILY PRACTICE 09/25/20 Dianne Johnson, RN [address] [place] [address] Design Eng (Ambulatory) REGISTERED NURSE 08/14/20 documented as of this encounter
--- OUTSIDE RECORDS SUMMARY | 2024-03-15 00:58 | XMS_ITS | Encounter Summary ---
Author Organization [facility] Address [facility]. [place], [place] [address] [place] [address] Care Team Providers Care Wool Carder Name Role Phone Dianne Johnson RN Unavailable [phone] Sanjeev Webster DO Primary Care Provider + Reason for Visit * Reason Onset Date Comments Downtime Visit 11/21/2022 Encounter Details Date Type Department Care Team (Late st Contact Info) Description 11/03/2022 9:20 AM CDT Office Visit [facility] Family & Internal Medicine [address] [address] Sanjeev Webster DO [address] [place] [address] Downtime Visit Social History Tobacco Use Types Packs/Day [...] Recorded Patient Health Questionnaire-2 Score 3 07/08/2022 [facility] - [...] Sign Reading Time Taken Comments Blood Pressure 138/74 11/03/2022 1:31 PM CDT Pulse - - Temperature - - Respiratory Rate - - Oxygen Saturation - - Inhaled Oxygen Concentration - - Weight - - Height - - Body Mass Index - - documented in this encounter Functional Status * [...] documented in this encounter Progress Notes * Melanie Albright MD - 03/18/2023 8:43 AM CST Additional documentation from 11/02/22-11/18/22 may be found under the media tab. PRESSMAN * Adriana Avery RN - 11/03/2022 9:20 AM CDT Refer to scanned documents for care provided during this time. documented in this encounter Plan of Treatment Upcoming Encounters Date Type Department Care Team (Late st Contact Info) Description 04/14/2024 2:00 PM CUT PRESSMAN Office Visit [facility] Multispecialty Care - [facility] [address] [facility], [address] [place] [address] Julio Pulido MD 3 [place] [address] documented as of this encounter Goals Goal Patient Goal Type Associated Problems Recent Progress Patient-Stated? Author Health - patient able to perform ADLs independently General On track(2023 9:49 AM CDT) Dianne Corona RN Note: 12/17/23: Patient stated she is independent with ASL's. Establish Plan for Symptom Monitoring-CHF General On track(2023 11:36 AM CUT PRESSMAN) Dianne Corona RN Note: Patient will recognize [...] Symptom Monitoring-COPD General On track(2023 11:36 AM CUT PRESSMAN) Dianne Corona RN Note: Patient will recognize [...] Symptom Monitoring-DM General On track(2023 4:33 PM CUT PRESSMAN) Dianne Corona RN Note: Patient will manage [...] Symptom Monitoring-HTN General On track(2023 4:33 PM CUT PRESSMAN) Dianne Corona RN Note: Patient will monitor [...] Date/Time Associated Diagnosis Comments COLLECT.CAPILLARY (FNGR,HEEL,EAR) Routine 11/21/2022 1:33 PM CDT Coronary artery disease involving [place] coronary artery of [place] heart without angina pectoris Paroxysmal atrial flutter ([facility]) PROTHROMBIN TIME, FINGERSTICK Routine 11/03/2022 Coronary artery disease involving [place] coronary artery of [place] heart without angina pectoris Paroxysmal atrial flutter ([facility]) documented in this encounter Results * PROTIME/INR, FINGERSTICK (11/03/2022) INR WHOLE BLOOD 2.30 MG-S [facility] 11/03/2022 us Sanjeev Webster DO LABORATORY Final Re sult -[address] [address], documented in this encounter Visit Diagnoses Diagnosis Coronary artery disease involving [place] coronary artery of [place] heart without angina pectoris- Primary Paroxysmal atrial flutter ([facility]) Atrial flutter DOWNTIME VISIT documented in this encounter Additional Health Concerns Assessment Noted Time PHQ-9 Depression Total Score: 3 12/24/19 22 11:48 AM CDT documented as of this encounter Care Teams Wool Carder Relationship Specialty Start Date End Date Sanjeev Webster DO [address] [place] [address] PCP - General FAMILY PRACTICE 09/25/20 Dianne Johnson, RN [address] [place] [address] Group Leader Semiconductor Testing (Ambulatory) REGISTERED NURSE 08/14/20 documented as of this encounter
--- OUTSIDE RECORDS SUMMARY | 2024-03-15 00:58 | XMS_ITS | Encounter Summary ---
Author Organization [facility] Address [facility]6 [facility] [place] [address] [place] [address] Care Team Providers Care Tile Setter Name Role Phone Casey Johnson RN Unavailable [phone] Sanjeev Webster DO Primary Care Provider + Reason for Visit * Reason Onset Date Comments Care Management 09/11/2022 Encounter Details Date Type Department Care Team (Late st Contact Info) Description 09/11/2022 Patient Outreach [facility] Family & Internal Medicine [address] [address] Casey Johnson, RN [address] [place] [address] Care Management Social History Tobacco [...] Recorded Patient Health Questionnaire-2 Score 3 07/08/2022 [facility] of Occupat ional [...] Progress Notes * Casey Johnson RN - 09/11/2022 11:41 AM CDT Images from the original note were not included. Chronic Care Management: 09/11/22: Patient left a message to return phone call. 09/11/22: Contacted patient. See below for details. Reviewed chart notes. Seen by on 09/10/22. B/P: 122/70. Referral to Cardiology and f/u in 1 month. BMP, CBC with diff and PT/INR collected yesterday. made following recommendations: Izzy Molina left a message with patient to schedule cardiology consult. Patient scheduled to see (Labelling Machine Operator) tomorrow at 11:00 am. Patient Status: Contacted patient today to remind her of appointment with tomorrow at 11:00 am. Stated shehas the paper work and address for appointment tomorrow. Encouraged to arrive 15 minutes early for appointment. Patient stated she is no longer seeing since he did not return the hospitalist phone call when she was hospitalized. Stated referred her to a Landscape Technician in his office. Informed patient that Izzy Molina left her a message earlier regarding an appointment. Patientunaware of message. Informed CC will send a message to Yenifer to call her back. Patient verbalizes understanding. Denies any issues with COPD or CHF exacerbation at this time. Stated a couple days ago she walked in kitchen, felt dizzy and sob. She took a nap and she felt fine. No further issues at this time. Sheforgot to mention to yesterday. Message sent to with response to message on 09/01/22. Reviewed lab results with patient. Message sent to PCP nursing team to schedule PT/INRin 1 week. BMP and CBC in 2-3 weeks. Patient is aware. Izzy takes care of medications. Patient is aware CC will reach out to Izzy about medication changes. Encouraged to call CC at the onset of any changes. Patient verbalizes understanding. 09/11/22: Left message for Yenifer to call patient back regarding Cardiology appointment. 09/11/22: Left message for Izzy to return CC phone call regarding lab results and medication changes. 09/11/22: Yenifer sent message back to CC stating she will contact patient. 09/11/22: Contacted Izzy about the following: Izzy will make medication changes accordingly. Updated medication list to reflect. Stated she did not receive a response about iron medication when CC sent message to 's nursing team on 09/01/22. Message recent to . Izzy is aware. 09/11/22: Sent message to Natalee HUNTER with office informing CC spoke to patient and Izzy about lab results. She will reach out to patient and find out where she wants to have F/U lab work done. Lab is closed at office for the month of September. 09/11/22: Received response back from that patient can stop iron. Updated medication list to reflect and notified Izzy. Plan of Care: community service officer coordinator will continue to follow up by [...] Future Appointments Date Time Provider Department Center 09/12/2022 11:00 AM Panda Moreno MD [facility] 09/16/2022 11:00 AM MG [facility] FM NURSE [facility] 11/03/2022 9:20 AM Sanjeev Webster DO [facility] Quality care gaps: Health Maintenance Topic [...] test Chronic anticoagulation Coronary artery disease involving [place] coronary artery of [place] heart without angina pectoris Dyspnea on exertion [...] hypertension with stage 3b chronic kidney disease ([facility]) Cobalamin deficiency Compression fracture of thoracic vertebra ([facility]) Depression Diabetic polyneuropathy ([facility]) Disorder of rotator cuff Diverticular disease Dysphagia Elevated troponin Gastroesophageal reflux disease without esophagitis Hyperlipidemia, unspecified hyperlipidemia type Vascular dementia ([facility]) Unknown and unspecified causes of morbidity Syncope, unspecified syncope type Senile purpura ([facility]) Wrist joint pain Respiratory illness Requires lifelong warfarin therapy Secondary hyperparathyroidism ([facility]) Presence of prosthetic heart valve Plantar fascial fibromatosis Peripheral neuropathy Parathyroid adenoma Polymyalgia rheumatica ([facility]) Osteoporosis Numbness Muscle cramps Closed stable burst fracture of sixth thoracic vertebra, initial encounter ([facility]) Chest pain Contusion of scalp Knee pain Localized, primary osteoarthritis Osteoarthritis of knee Traumatic closed displaced fracture of distal end of radius Shoulder joint pain Hyperlipidemia associated with type 2 diabetes mellitus ([facility]) PVD (peripheral vascular disease) ([facility]) Hematoma Anxiety Diastolic heart failure ([facility]) Internal hemorrhoids Leukoencephalopathy Major depression single episode, in partial remission ([facility]) Metacarpal bone fracture Mitral valve disorder Purpura ([facility]) Peripheral arterial occlusive disease ([facility]) Primary osteoarthritis involving multiple joints Vision loss COPD (chronic obstructive pulmonary disease) ([facility]) Diarrhea Drug-induced constipation H/O mechanical aortic valve replacement Age-related osteoporosis with current pathological fracture Care Management Physical deconditioning Chronic heart failure with preserved ejection fraction (HFpEF) ([facility]) Paroxysmal atrial fibrillation ([facility]) Hypertension associated with type 2 diabetes mellitus ([facility]) Encounter for prophylactic measures, unspecified Graves' disease Cirrhosis of liver without ascites, unspecified hepatic cirrhosis type ([facility]) Stage 3b chronic kidney disease ([facility]) OLIVE (acute kidney injury) ([facility]) Medications: Current Outpatient Medications Medication Sig Dispense [...] Patient Time spent with patient (minutes): 22 (Comment: Time spent with patient, Izzy and Yenifer with Cardiology) Time spent performing chart review (minutes): 9 Total time (minutes): 31 CASEY JOHNSON RN I reviewed the patient's status and education provided by CASEY JOHNSON RN. I agree with the findings and recommendations made. Cosigned by Sanjeev Webster DO at 09/11/2022 1:53 PM CDT documented in this encounter Plan of Treatment Upcoming Encounters Date Type Department Care Team (Late st Contact Info) Description 04/14/2024 2:00 PM BELT DRESSER Office Visit [facility] Multispecialty Care - [facility] [address] [facility], [address] [place] [phone] Julio Pulido MD 3 [place] [address] documented as of this encounter Goals Goal Patient Goal Type Associated Problems Recent Progress Patient-Stated? Author Health - patient able to perform ADLs independently General On track(2023 9:49 AM CDT) Casey Corona, DALE Note: 12/17/23: Patient stated she is independent with ASL's. Establish Plan for Symptom Monitoring-CHF General On track(2023 11:36 AM BELT DRESSER) Casey Corona, DALE Note: Patient will recognize [...] Symptom Monitoring-COPD General On track(2023 11:36 AM BELT DRESSER) Casey Corona, DALE Note: Patient will recognize [...] Symptom Monitoring-DM General On track(2023 4:33 PM BELT DRESSER) Casey Corona RN Note: Patient will manage [...] Symptom Monitoring-HTN General On track(2023 4:33 PM BELT DRESSER) Casey Corona RN Note: Patient will monitor [...] heart failure with preserved ejection fraction (HFpEF) ([facility])- Primary Chronic obstructive pulmonary disease, unspecified COPD type ([facility]) documented in this encounter Additional Health Concerns Assessment Noted Time PHQ-9 Depression Total Score: 3 12/24/19 22 11:48 AM CDT documented as of this encounter Care Teams Tile Setter Relationship Specialty Start Date End Date Sanjeev Webster DO [address] [place] [address] PCP - General FAMILY PRACTICE 09/25/20 Casey Johnson, RN [address] [place], [place] [id number] Senior Project Leader/Team Lead (Ambulatory) REGISTERED NURSE 08/14/20 documented as of this encounter
--- OUTSIDE RECORDS SUMMARY | 2024-03-15 00:58 | XMS_ITS | Encounter Summary ---
Author Organization [facility] Address [facility] [place] [address] [place] [address] Care Team Providers Care Billing Control Clerk Name Role Phone Dianne Johnson RN Unavailable [phone] Sanjeev Webster DO Primary Care Provider + Reason for Referral * Consultation (Routine) - Closed Specialty Diagnoses / Procedures Referred By Contivett t Referred To Contact NEUROLOGY Diagnoses Vascular dementia, uncomplicated ([facility]) Cerebral aneurysm, nonruptured ([facility]) Procedures OFFICE/OUTPT VISIT,NEW,LEVL III OFFICE/OUTPT VISIT,NEW,LEVL IV OFFICE/OUTPT VISIT,NEW,LEVL V OFFICE/OUTPT VISIT,EST,LEVL III OFFICE/OUTPT VISIT,EST,LEVL IV OFFICE/OUTPT VISIT,EST,LEVL V Sanjeev Webster DO [address] [place] [address] Phone: tel: fax: [place] [address] [place] [address] Phone: tel: fax: Referral ID Status Reason Start Date Expiration Date V isits Requested Visits Authorized [id number] Closed Specialty Services 09/22/2022 09/23/2023 12 12 Scheduling Instructions Patient would like to be seen at [facility] with the [facility] neurologist. Patient had an appointment on 09/11/22. However, she stated she did not know about the appointment. Reason for Visit * Reason Onset Date Comments Referral 09/15/2022 Encounter Details Date Type Department Care Team (Late st Contact Info) Description 09/15/2022 Telephone [facility] Family & Internal Medicine [facility] [address] [place] [address] Sanjeev Webster DO [address] [place] [address] Referral Social History Tobacco Use Types Packs/Day [...] often do you attend chur ch or latter-day services? More than 4 times [...] Recorded Patient Health Questionnaire-2 Score 3 07/08/2022 [facility] - [facility]ational Stress Questionnaire Answer [...] Progress Notes * Natalee Brown RN - 09/15/2022 11:17 AM CDT Patient missed her appointment on 09/11/22. Patient stated she did not know about the appointment. Patient would like to still be seen by that provider. New referral placed. Opportunity given for all questions to be answered, no further needs voiced at this time. LL-09/15/22 documented in this encounter Plan of Treatment Upcoming Encounters Date Type Department Care Team (Late st Contact Info) Description 04/14/2024 2:00 PM MAKE UP OPERATOR HELPER Office Visit [facility] Multispecialty Care - [facility] 3 [facility], [address] [place] [address] Julio Pulido MD 3 [place] [address] Scheduled Referrals Name Type Priority Associated Diagnoses Orde r Schedule Ambulatory referral to Neurology (OTHER) Referral Routine Vascular dementia, uncomplicated ([facility]) Cerebral aneurysm, nonruptured ([facility]CC) Ordered: 09/15/2022 documented as of this encounter Goals Goal Patient Goal Type Associated Problems Recent Progress Patient-Stated? Author Health - patient able to perform ADLs independently General On track(2023 9:49 AM CDT) Dianne Corona, RN Note: 12/17/23: Patient stated she is independent with ASL's. Establish Plan for Symptom Monitoring-CHF General On track(2023 11:36 AM MAKE UP OPERATOR HELPER) Dianne Corona, RN Note: Patient will recognize [...] Symptom Monitoring-COPD General On track(2023 11:36 AM MAKE UP OPERATOR HELPER) Dianne Corona, RN Note: Patient will recognize [...] Symptom Monitoring-DM General On track(2023 4:33 PM MAKE UP OPERATOR HELPER) Dianne Corona, RN Note: Patient will manage [...] Symptom Monitoring-HTN General On track(2023 4:33 PM MAKE UP OPERATOR HELPER) Dianne Corona RN Note: Patient will monitor B/P several times per week , record readings and report to physician or CC if B/P consistently >130/80 Take your medications as prescribed. Follow up with your provider as scheduled. Take your blood pressure at least several times a week if able. documented as of this encounter Visit Diagnoses Diagnosis Vascular dementia, uncomplicated ([facility])- Primary Vascular dementia, uncomplicated Cerebral aneurysm, nonruptured ([facility]) Cerebral aneurysm, nonruptured documented in this encounter Additional Health Concerns Assessment Noted Time PHQ-9 Depression Total Score: 3 12/24/19 22 11:48 AM CDT documented as of this encounter Care Teams Billing Control Clerk Relationship Specialty Start Date End Date Sanjeev Webster DO [address] [place] [address] PCP - General FAMILY PRACTICE 09/25/20 Dianne Johnson, RN [address] [place] [address] Automatic Washer Mechanic (Ambulatory) REGISTERED NURSE 08/14/20 documented as of this encounter
--- OUTSIDE RECORDS SUMMARY | 2024-03-15 00:58 | XMS_ITS | Encounter Summary ---
Author Organization [facility] Address [facility]. [place], [place] [address] [place] [address] Care Team Providers Care Tube Worker Name Role Phone Dianne Johnson RN Unavailable [phone] Sanjeev Webster DO Primary Care Provider + Reason for Visit * Reason Onset Date Comments Other 09/16/2022 Encounter Details Date Type Department Care Team (Late st Contact Info) Description 09/16/2022 Telephone [facility] Medical Group Family & Internal Medicine [place] [address] [place] [address] Sanjeev Webster DO [address] [place] [address] Other Social History Tobacco Use [...] Patient Health Questionnaire-2 Score 3 07/08/2022 [facility] of Occupat ional Health - Occupational [...] Progress Notes * Sanjeev Webster DO - 09/23/2022 8:56 AM CDT Noted. * Lashawn Vega - 09/16/2022 2:33 PM CDT Bebe @ [facility] home health called, they tried to schedule pt for home care. Pt told her she goes to [facility] and she doesn't need her services. documented in this encounter Plan of Treatment Upcoming Encounters Date Type Department Care Team (Late st Contact Info) Description 04/14/2024 2:00 PM REEXAMINER Office Visit [facility] Multispecialty Care - [facility] [address] [facility], [address] [place] [address] Julio Pulido MD 3 [place] [address] documented as of this encounter Goals Goal Patient Goal Type Associated Problems Recent Progress Patient-Stated? Author Health - patient able to perform ADLs independently General On track(2023 9:49 AM CDT) Dianne Corona, RN Note: 12/17/23: Patient stated she is independent with ASL's. Establish Plan for Symptom Monitoring-CHF General On track(2023 11:36 AM REEXAMINER) Dianne Corona RN Note: Patient will recognize [...] Symptom Monitoring-COPD General On track(2023 11:36 AM REEXAMINER) Dianne Corona RN Note: Patient will recognize [...] Symptom Monitoring-DM General On track(2023 4:33 PM REEXAMINER) Dianne Corona RN Note: Patient will manage [...] Symptom Monitoring-HTN General On track(2023 4:33 PM REEXAMINER) Dianne Corona, RN Note: Patient will monitor [...] as of this encounter Care Teams Tube Worker Relationship Specialty Start Date End Date Sanjeev Webster DO [address] [place] [id number] PCP - General FAMILY PRACTICE 09/25/20 Dianne Johnson, RN [address] [place] [address] J2Ee Engineer (Ambulatory) REGISTERED NURSE 08/14/20 documented as of this encounter
--- OUTSIDE RECORDS SUMMARY | 2024-03-15 00:58 | XMS_ITS | Encounter Summary ---
Author Organization [facility] Address [facility] [place] [address] [place] [address] Care Team Providers Care Menu Planner Name Role Phone Dianne Johnson RN Unavailable [phone] Sanjeev Webster DO Primary Care Provider + Encounter Details Date Type Department Care Team (Late st Contact Info) Description 09/10/2022 Home Care Visit [facility] Home Care [address] [place] [address] Fátima Devries RN SN NON ADMIT SOC Social History Tobacco Use Types Packs/Day Years [...] Recorded Patient Health Questionnaire-2 Score 3 07/08/2022 [facility] Questionnaire Answer [...] st Contact Info) Description 04/14/2024 2:00 PM FILTER PRESS PUMPER Office Visit [facility] Medical Group Multispecialty Care - [facility] 3 [facility], [address] [place] [address] Julio Pulido MD 3 [place] [address] documented as of this encounter Goals Goal Patient Goal Type Associated Problems Recent Progress Patient-Stated? Author Health - patient able to perform ADLs independently General On track(2023 9:49 AM CDT) Dianne Corona RN Note: 12/17/23: Patient stated she is independent with ASL's. Establish Plan for Symptom Monitoring-CHF General On track(2023 11:36 AM FILTER PRESS PUMPER) Dianne Corona RN Note: Patient will recognize [...] Symptom Monitoring-COPD General On track(2023 11:36 AM FILTER PRESS PUMPER) Dianne Corona RN Note: Patient will recognize [...] Symptom Monitoring-DM General On track(2023 4:33 PM FILTER PRESS PUMPER) Dianne Corona RN Note: Patient will manage [...] Symptom Monitoring-HTN General On track(2023 4:33 PM FILTER PRESS PUMPER) Dianne Corona RN Note: Patient will monitor [...] documented as of this encounter Care Teams Menu Planner Relationship Specialty Start Date End Date Sanjeev Webster DO [address] [place] [address] PCP - General FAMILY PRACTICE 09/25/20 Dianne Johnson RN [address] [place] [address] Armored Car Messenger (Ambulatory) REGISTERED NURSE 08/14/20 documented as of this encounter
--- OUTSIDE RECORDS SUMMARY | 2024-03-15 00:58 | XMS_ITS | Encounter Summary ---
Author Organization [facility] Address [facility] [place] [address] [place] [address] Care Team Providers Care Pest Control Service Representative Name Role Phone Casey Johnson RN Unavailable [phone] Sanjeev Webster DO Primary Care Provider + Reason for Visit * Reason Onset Date Comments Care Management 10/15/2022 Encounter Details Date Type Department Care Team (Late st Contact Info) Description 10/15/2022 Patient Outreach [facility] Medical Group Family & Internal Medicine [address] [address] Casey Johnson, RN [address] [place] [address] Care Management Social History Tobacco [...] Recorded Patient Health Questionnaire-2 Score 3 07/08/2022 [facility] of Occupat ional [...] Progress Notes * Casey Johnson RN - 10/15/2022 1:37 PM CDT Images from the original note were not included. Chronic Care Management: Patient concerns or urgent matters that need addressed: Non identified at this time. Patient Status: Contacted patient to remind her she needs to get PT/INR done this week. Patient will have done at [facility] tomorrow around 2:00 PM. Message sent to PCP nursing team to fax an order to [facility] and inform patient when order faxed. Patient requesting refill on hydrocodone/acetaminophen sent to [facility] in [place]. Stated shehas one pill left. Message sent to PCP nursing team. Educated on COPD and CHF exacerbation s/s. Encouraged patient to reach out to CC at the onset of any changes to help prevent hospital admission. Patient verbalizes understanding. Denies any s/s at this time. Stated she uses Albuterol inhaler every once in a while. Stated she's only gained 1 lb. Patient stated Izzy fills her medications but fails to tell her when changes any of her medications. Patient stated she would like to know as well or she would like officeto remind Izzy to inform her since Izzy is taking care of her medications. Updated comments before calling to include the following: Patient is aware of changes. Patient was scheduled to see [employer] () on 10/14/22. Stated his office called and cx appointment on 10/14/22. Stating this is the second time his office cx her appointment. She was ready to attend appointment on 10/14/22. Stated she was informed his office will contact her with a different appointment. Reviewed cx appointment and it states: Provider cx appointment and provider's office will call to reschedule. Patient stated she hasn't received a call back at this time. 10/15/22: Contacted 's office to find out if CC can schedule appointment for patient since 10/14/22 appointment was cx. Spoke to Fátima. She was unable to get a hold of 's receptionist secretary. Sheleft a message for receptionist secretary to return CC phone call regarding an appoinment. 10/15/22: Taina with 's office returned phone call. Stating out at this time and appointments are being rescheduled in January. 10/16/22: Contacted 's office and spoke to Fátima. She attempted to contact Taina and she wasnot available. affiliate marketing coordinator sent Taina a message in [employer] requesting to schedule an appointmentwith and send appointment details back to CC. 10/16/22: Notified patient about the above and she verbalizes understanding. Plan of Care: affiliate marketing coordinator will continue to follow up [...] Future Appointments Date Time Provider Department Center 10/31/2022 8:30 AM ALEX ECHO 2 SEONOIV HS ALEX 11/03/2022 9:20 AM Sanjeev Webster DO [id number] [facility] 01/16/2023 9:15 AM Sania Gomez MD [facility] Quality care gaps: Health Maintenance Topic [...] test Chronic anticoagulation Coronary artery disease involving te-moak coronary artery of te-moak heart without angina pectoris Dyspnea on exertion H/O mechanical aortic valve replacement Hypertensive heart disease with congestive heart failure (HHS/HCC) ([facility]) LBBB (left bundle branch block) Myopathy VAZQUEZ (obstructive sleep apnea) Paroxysmal atrial flutter (HHS/HCC) ([facility]/HCC) Benign hypertension with CKD (chronic kidney disease) stage III ([facility]) Memory deficits Hearing deficit, bilateral History of cataract extraction, unspecified laterality Vitamin D deficiency Hypercalcemia Chronic frontal sinusitis Constipation, unspecified constipation type Chronic bilateral low back pain without sciatica Iron deficiency anemia, unspecified iron deficiency anemia type Disorder of skin of trunk Anemia Body mass index (BMI) 31.0-31.9, adult 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[facility]) Benign hypertension with stage 3b chronic kidney disease ([facility]) Cobalamin deficiency Compression fracture of thoracic vertebra ([facility]) ([facility]) Depression Diabetic polyneuropathy ([facility]) ([facility]) Disorder of rotator cuff Diverticular disease Dysphagia Elevated troponin Gastroesophageal reflux disease without esophagitis Hyperlipidemia, unspecified hyperlipidemia type Vascular dementia ([facility]) Unknown and unspecified causes of morbidity Syncope, unspecified syncope type Senile purpura ([facility]) Wrist joint pain Respiratory illness Requires lifelong warfarin therapy Secondary hyperparathyroidism ([facility]) ([facility]) Presence of prosthetic heart valve Plantar fascial fibromatosis Peripheral neuropathy Parathyroid adenoma Polymyalgia rheumatica ([facility]) ([facility]) Osteoporosis Numbness Muscle cramps Closed stable burst fracture of sixth thoracic vertebra, initial encounter ([facility]) ([facility]) Chest pain Contusion of scalp Knee pain Localized, primary osteoarthritis Osteoarthritis of knee Traumatic closed displaced fracture of distal end of radius Shoulder joint pain Hyperlipidemia associated with type 2 diabetes mellitus ([facility]) ([facility]) PVD (peripheral vascular disease) ([facility]) Hematoma Anxiety Diastolic heart failure ([facility]) ([facility]) Internal hemorrhoids Leukoencephalopathy Major depression single episode, in partial remission ([facility]) Metacarpal bone fracture Mitral valve disorder Purpura ([facility]) Peripheral arterial occlusive disease ([facility]) Primary osteoarthritis involving multiple joints Vision loss COPD (chronic obstructive pulmonary disease) ([facility]) ([facility]) Diarrhea Drug-induced constipation H/O mechanical aortic valve replacement Age-related osteoporosis with current pathological fracture Care Management Physical deconditioning Chronic heart failure with preserved ejection fraction (HFpEF) ([facility]) ([facility]) Paroxysmal atrial fibrillation ([facility]) ([facility]) Hypertension associated with type 2 diabetes mellitus ([facility]) ([facility]) Encounter for prophylactic measures, unspecified Graves' disease Cirrhosis of liver without ascites, unspecified hepatic cirrhosis type ([facility]) ([facility]) Stage 3b chronic kidney disease ([facility]) OLIVE (acute kidney injury) ([facility]) Medications: Current Outpatient Medications Medication [...] Patient Time spent with patient (minutes): 21 (Comment: Time spent with patient and Fátima at 's office) Time spent performing chart review (minutes): 10 Total time (minutes): 31 CASEY JOHNSON RN I reviewed the patient's status and education provided by CASEY JOHNSON RN. I agree with the findings and recommendations made. Cosigned by Sanjeev Webster DO at 10/16/2022 3:09 PM CDT documented in this encounter Plan of Treatment Upcoming Encounters Date Type Department Care Team (Late st Contact Info) Description 04/14/2024 2:00 PM AIR DISPATCHER Office Visit [facility] Medical [facility] Multispecialty Care - [facility] [address] [facility], [address] [place] [address] Julio Pulido MD [address] [place] [address] documented as of this encounter Goals Goal Patient Goal Type Associated Problems Recent Progress Patient-Stated? Author Health - patient able to perform ADLs independently General On track(2023 9:49 AM CDT) Casey Corona RN Note: 12/17/23: Patient stated she is independent with ASL's. Establish Plan for Symptom Monitoring-CHF General On track(2023 11:36 AM AIR DISPATCHER) Casey Corona RN Note: Patient will [...] Monitoring-COPD General On track(2023 11:36 AM AIR DISPATCHER) Casey Corona RN Note: Patient will [...] Monitoring-DM General On track(2023 4:33 PM AIR DISPATCHER) Casey Corona RN Note: Patient will [...] Monitoring-HTN General On track(2023 4:33 PM AIR DISPATCHER) Casey Corona RN Note: Patient will monitor [...] with preserved ejection fraction (HFpEF) ([facility])- Primary Chronic obstructive pulmonary disease, unspecified COPD type ([facility] HHS/[facility]) documented in this encounter Additional Health Concerns Assessment Noted Time PHQ-9 Depression Total Score: 3 12/24/19 22 11:48 AM CDT documented as of this encounter Care Teams Pest Control Service Representative Relationship Specialty Start Date End Date Sanjeev Webster DO [address] [place] [address] PCP - General FAMILY PRACTICE 09/25/20 Casey Johnson, RN [address] [place] [address] Check Viewer (Ambulatory) REGISTERED NURSE 08/14/20 documented as of this encounter
--- OUTSIDE RECORDS SUMMARY | 2024-03-15 00:58 | XMS_ITS | Encounter Summary ---
Author Organization [facility] Address [facility] [place] [address] [place] [address] Care Team Providers Care Information Systems Security Manager Name Role Phone Dianne Johnson RN Unavailable [phone] Sanjeev Webster DO Primary Care Provider + Reason for Visit * Reason Onset Date Comments Appointment Reminder 10/02/2022 Needs a lilia lback for appt 10/14/22 Encounter Details Date Type Department Care Team (Late st Contact Info) Description 10/02/2022 Telephone [facility] Medical Group Diabetes and Endocrinology - [address] [address] Panda Moreno MD Appointment Reminder (Needs a callback for appt 10/14/22) Social History Tobacco Use Types Packs/Day Years [...] 07/08/2022 [facility] of Occupat ional [...] documented in this encounter Progress Notes * Krista Chairez - 10/02/2022 10:31 AM CDT The patient has an appointment on 10/14/22 And there is a notes stating that she is needing to reschedule that appointment. The call was made on 09/15/22. Is this the appointment that has been Rescheduled? Call her back at [phone] documented in this encounter Plan of Treatment Upcoming Encounters Date Type Department Care Team (Late st Contact Info) Description 04/14/2024 2:00 PM PPAP COORDINATOR Office Visit [facility] Medical Group Multispecialty Care - [facility] [address] [facility], [address] [place] [address] Julio Pulido MD 3 [place] [address] documented as of this encounter Goals Goal Patient Goal Type Associated Problems Recent Progress Patient-Stated? Author Health - patient able to perform ADLs independently General On track(2023 9:49 AM CDT) No Dianne Johnson RN Note: 12/17/23: Patient stated she is independent with ASL's. Establish Plan for Symptom Monitoring-CHF General On track(2023 11:36 AM PPAP COORDINATOR) Dianne Corona RN Note: Patient will [...] Symptom Monitoring-COPD General On track(2023 11:36 AM PPAP COORDINATOR) Dianne Corona RN Note: Patient will [...] Symptom Monitoring-DM General On track(2023 4:33 PM PPAP COORDINATOR) Dianne Corona, DALE Note: Patient will manage [...] Symptom Monitoring-HTN General On track(2023 4:33 PM PPAP COORDINATOR) Dianne Corona RN Note: Patient will [...] as of this encounter Care Teams Information Systems Security Manager Relationship Specialty Start Date End Date Sanjeev Webster DO [address] [place] [address] PCP - General FAMILY PRACTICE 09/25/20 Dianne Johnson, RN [address] [place] [address] Claims Correspondence Clerk (Ambulatory) REGISTERED NURSE 08/14/20 documented as of this encounter
--- OUTSIDE RECORDS SUMMARY | 2024-03-15 00:58 | XMS_ITS | Encounter Summary ---
Author Organization [facility] Address [facility] [place] [place] [address] [place] [address] Care Team Providers Care Automatic Clipper Name Role Phone Dianne Johnson RN Unavailable [phone] Sanjeev Webster DO Primary Care Provider + Reason for Visit * Reason Comments Lab (SCAN) Encounter Details Date Type Department Care Team (Latest Contact Info) Description 09/26/2022 Scan HEALTH INFO SRVCS Scanned, Doc Med [...] How often do you attend chur or restoration services? More than 4 times [...] Recorded Patient Health Questionnaire-2 Score 3 07/08/2022 [facility] Questionnaire Answer Date [...] st Contact Info) Description 04/14/2024 2:00 PM FOUNDRY HELPER Office Visit [facility] Medical Group Multispecialty Care - [facility] [address] [facility], [address] [place] [address] Julio Pulido MD 3 [place] [address] documented as of this encounter Goals Goal Patient Goal Type Associated Problems Recent Progress Patient-Stated? Author Health - patient able to perform ADLs independently General On track(2023 9:49 AM CDT) Dianne Corona RN Note: 12/17/23: Patient stated she is independent with ASL's. Establish Plan for Symptom Monitoring-CHF General On track(2023 11:36 AM FOUNDRY HELPER) Dianne Corona RN Note: Patient will [...] Symptom Monitoring-COPD General On track(2023 11:36 AM FOUNDRY HELPER) Dianne Corona RN Note: Patient will [...] Symptom Monitoring-DM General On track(2023 4:33 PM FOUNDRY HELPER) Dianne Corona RN Note: Patient will [...] Symptom Monitoring-HTN General On track(2023 4:33 PM FOUNDRY HELPER) Dianne Corona, RN Note: Patient will monitor [...] Associated Diagnosis Comments OUTSIDE PT/INR (SCAN ORDER) 09/26/2022 OUTSIDE LAB (SCAN ORDER) 09/26/2022 OUTSIDE LAB (SCAN ORDER) 09/26/2022 documented in this encounter Results * OUTSIDE LAB (SCAN) (09/26/2022) 09/26/2022 [facility] Scanned SCANNING Final Resu lt * OUTSIDE LAB (SCAN) (09/26/2022) 09/26/2022 [facility] Scanned SCANNING Final Resu lt * OUTSIDE PT/INR (SCAN) (09/26/2022) 09/26/2022 [facility] Scanned SCANNING Final Resu lt documented in this encounter Visit Diagnoses Not on filedocumented in this encounter Additional Health Concerns Assessment Noted Time PHQ-9 Depression Total Score: 3 12/24/19 22 11:48 AM CDT documented as of this encounter Care Teams Automatic Clipper Relationship Specialty Start Date End Date Sanjeev Webster DO [address] [place] [address] PCP - General FAMILY PRACTICE 09/25/20 Dianne Johnson, RN [address] [place] [address] Postdoctoral Scholar (Ambulatory) REGISTERED NURSE 08/14/20 documented as of this encounter
--- OUTSIDE RECORDS SUMMARY | 2024-03-15 00:58 | XMS_ITS | Encounter Summary ---
Author Organization [facility] Address [facility] [place] [address] [place] [address] Care Team Providers Care Scrap Materials Buyer Name Role Phone Dianne Johnson RN Unavailable [phone] Sanjeev Webster DO Primary Care Provider + Encounter Details Date Type Department Care Team (Latest Contact Info) Description 10/03/2022 Travel Social History Tobacco Use Types Packs/Day [...] Recorded Patient Health Questionnaire-2 Score 3 07/08/2022 [facility] of Occupat ional Health - [...] st Contact Info) Description 04/14/2024 2:00 PM WINDOW GLASS CUTTER OFF Office Visit [facility] Medical Group Multispecialty Care - [facility] [address] [facility], [address] [place] [address] Julio Pulido MD 3 [place] [address] documented as of this encounter Goals Goal Patient Goal Type Associated Problems Recent Progress Patient-Stated? Author Health - patient able to perform ADLs independently General On track(2023 9:49 AM CDT) Dianne Corona RN Note: 12/17/23: Patient stated she is independent with ASL's. Establish Plan for Symptom Monitoring-CHF General On track(2023 11:36 AM WINDOW GLASS CUTTER OFF) Dianne Corona RN Note: Patient will recognize [...] Symptom Monitoring-COPD General On track(2023 11:36 AM WINDOW GLASS CUTTER OFF) Dianne Corona RN Note: Patient will recognize [...] Symptom Monitoring-DM General On track(2023 4:33 PM WINDOW GLASS CUTTER OFF) Dianne Corona RN Note: Patient will manage [...] Symptom Monitoring-HTN General On track(2023 4:33 PM WINDOW GLASS CUTTER OFF) Dianne Corona, RN Note: Patient will monitor [...] documented as of this encounter Care Teams Scrap Materials Buyer Relationship Specialty Start Date End Date Sanjeev Webster DO [address] [place] [address] PCP - General FAMILY PRACTICE 09/25/20 Dianne Johnson, RN [address] [place] [address] Silk Screener (Ambulatory) REGISTERED NURSE 08/14/20 documented as of this encounter
--- OUTSIDE RECORDS SUMMARY | 2024-03-15 00:58 | XMS_ITS | Encounter Summary ---
Author Organization [facility] Address [facility] [facility] [place] [address] [place] [address] Care Team Providers Care River Pilot Name Role Phone Dianne Johnson RN Unavailable [phone] Sanjeev Webster DO Primary Care Provider + Reason for Visit * Reason Onset Date Comments Appointment Request 09/11/2022 Encounter Details Date Type Department Care Team (Late st Contact Info) Description 09/11/2022 Telephone [facility] Medical Group Family & Internal Medicine [facility] [address] [place] [address] Sanjeev Webster DO [address] [place] [address] Appointment Request Social History Tobacco [...] documented in this encounter Progress Notes * Mike Brown RN - 09/11/2022 2:56 PM CDTAddended by: MIKE BROWN on: 09/11/2022 02:56 PM Modules accepted: Orders * Mike Brown RN - 09/11/2022 1:44 PM CDTAddended by: MIKE BROWN on: 09/11/2022 01:44 PM Modules accepted: Orders * Mike Brown RN - 09/11/2022 1:39 PM CDT Patient notified and setup nurse visit for next week. Faxed over labs to [place]. Opportunity given for all questions to be answered, no further needs voiced at this time. LL-09/11/22 * Dianne Johnson RN - 09/11/2022 12:23 PM CDT Patient notified of lab results. She needs a PT/INR in 1 week. BMP and CBC in 2- 3 weeks. Please contact patient with an appointment. Thank you. documented in this encounter Plan of Treatment Upcoming Encounters Date Type Department Care Team (Late st Contact Info) Description 04/14/2024 2:00 PM COMPUTING ARCHITECT Office Visit [facility] Medical Group Multispecialty Care - [facility] [address] [facility], [address] [place] [phone] Julio Pulido MD 3 [place] [address] documented as of this encounter Goals Goal Patient Goal Type Associated Problems Recent Progress Patient-Stated? Author Health - patient able to perform ADLs independently General On track(2023 9:49 AM CDT) Dianne Corona RN Note: 12/17/23: Patient stated she is independent with ASL's. Establish Plan for Symptom Monitoring-CHF General On track(2023 11:36 AM COMPUTING ARCHITECT) Dianne Corona RN Note: Patient will [...] Symptom Monitoring-COPD General On track(2023 11:36 AM COMPUTING ARCHITECT) Dianne Corona RN Note: Patient will [...] Symptom Monitoring-DM General On track(2023 4:33 PM COMPUTING ARCHITECT) Dianne Corona RN Note: Patient will [...] Symptom Monitoring-HTN General On track(2023 4:33 PM COMPUTING ARCHITECT) Dianne Corona RN Note: Patient will monitor B/P several times per week , record readings and report to physician or CC if B/P consistently >130/80 Take your medications as prescribed. Follow up with your provider as scheduled. Take your blood pressure at least several times a week if able. documented as of this encounter Visit Diagnoses Diagnosis OLIVE (acute kidney injury) ([facility])- Primary Acute kidney failure, unspecified documented in this encounter Additional Health Concerns Assessment Noted Time PHQ-9 Depression Total Score: 3 12/24/19 22 11:48 AM CDT documented as of this encounter Care Teams River Pilot Relationship Specialty Start Date End Date Sanjeev Webster DO [address] [place] [address] PCP - General FAMILY PRACTICE 09/25/20 Dianne Johnson RN [address] [place] [address] Billing And Insurance Coordinator (Ambulatory) REGISTERED NURSE 08/14/20 documented as of this encounter
--- OUTSIDE RECORDS SUMMARY | 2024-03-15 00:58 | XMS_ITS | Encounter Summary ---
Author Organization [facility] Address [facility] [place] [address] [place] [address] Care Team Providers Care Head Men'S Golf Coach Name Role Phone Dianne Johnson RN Unavailable [phone] Sanjeev Webster DO Primary Care Provider + Reason for Visit * Reason Onset Date Comments Follow Up Call 09/01/2022 Encounter Details Date Type Department Care Team (Late st Contact Info) Description 09/01/2022 Telephone [facility] Family & Internal Medicine [place] [id number] [place] [address] Sanjeev Webster DO [address] [place] [address] Follow Up Call Social History [...] Recorded Patient Health Questionnaire-2 Score 3 07/08/2022 [facility] - Occupational [...] Progress Notes * Sanjeev Webster DO - 09/12/2022 2:28 PM CDT Will monitor for now. * Sanjeev Webster DO - 09/11/2022 1:39 PM CDT Can stop iron; was improved on recent checks. * Sanjeev Webster DO - 09/10/2022 11:31 AM CDT Will reassess CBC today. * Yenifer Wolf MA - 09/02/2022 1:42 PM CDTAddended by: YENIFER WOLF on: 09/02/2022 01:42 PM Modules accepted: Orders * Yenifer Wolf MA - 09/02/2022 1:41 PM CDT Rx sent to the pharmacy and FYI forwarded to provider. * Dianne Johnson RN - 09/01/2022 4:39 PM CDT D/C from [facility] on 08/29/22. TCM call completed, medications reconciled and appointment with on 09/10/22. Please address the following: Do any medications need refilled: Yes, Izzy ([id number]) on HIPAA requesting refill on warfarin 6 mg and methimazole 10 mg sent to [facility]. 2. FYI [facility] will begin start of care in 1 to 2 days. According to D/C instructions: BMP completed by 09/05/22. [facility] nurse will collect. Please advise if [...] She is no longer having this issue. Asimnts to know if patient should be on iron supplement. Please call her. documented in this encounter Plan of Treatment Upcoming Encounters Date Type Department Care Team (Late st Contact Info) Description 04/14/2024 2:00 PM MANAGER EMS Office Visit [facility] Multispecialty Care - [facility] [address] [facility], [address] [place] [phone] Julio Pulido MD 3 [place] [address] documented as of this encounter Goals Goal Patient Goal Type Associated Problems Recent Progress Patient-Stated? Author Health - patient able to perform ADLs independently General On track(2023 9:49 AM CDT) Dianne Corona RN Note: 12/17/23: Patient stated she is independent with ASL's. Establish Plan for Symptom Monitoring-CHF General On track(2023 11:36 AM MANAGER EMS) Dianne Corona RN Note: Patient will recognize [...] Monitoring-COPD General On track(2023 11:36 AM MANAGER EMS) Dianne Corona RN Note: Patient will recognize [...] Monitoring-DM General On track(2023 4:33 PM MANAGER EMS) Dianne Corona RN Note: Patient will manage [...] Monitoring-HTN General On track(2023 4:33 PM MANAGER EMS) Dianne Corona RN Note: Patient will monitor B/P several times per week , record readings and report to physician or CC if B/P consistently >130/80 Take your medications as prescribed. Follow up with your provider as scheduled. Take your blood pressure at least several times a week if able. documented as of this encounter Visit Diagnoses Diagnosis Hyperthyroidism Thyrotoxicosis without mention of goiter or other cause, without mention of thyrotoxic crisis or storm Chronic anticoagulation Encounter for long-term (current) use of anticoagulants documented in this encounter Additional Health Concerns Assessment Noted Time PHQ-9 Depression Total Score: 3 12/24/19 22 11:48 AM CDT documented as of this encounter Care Teams Head Men'S Golf Coach Relationship Specialty Start Date End Date Sanjeev Webster DO [address] [place] [address] PCP - General FAMILY PRACTICE 09/25/20 Dianne Johnson, RN [address] [place] [address] Cosmetics Demonstrator (Ambulatory) REGISTERED NURSE 08/14/20 documented as of this encounter
--- OUTSIDE RECORDS SUMMARY | 2024-03-15 00:58 | XMS_ITS | Encounter Summary ---
Author Organization [facility] Address [facility]6 [facility]. [place], [place] [address] [place] [address] Care Team Providers Care Manager Requirements Name Role Phone Dianne Johnson RN Unavailable [phone] Sanjeev Montez DO Primary Care Provider + Reason for Referral * Home Health Care (Urgent) - Closed Specialty Diagnoses / Procedures Referred By Contivett t Referred To Contact Home Health Services / [facility] HOME HEALTH Diagnoses OLIVE (acute kidney injury) ([facility]) Orthostatic hypotension CKD (chronic kidney disease) Procedures OFFICE/OUTPT VISIT,NEW,LEVL III OFFICE/OUTPT VISIT,NEW,LEVL IV OFFICE/OUTPT VISIT,NEW,LEVL V OFFICE/OUTPT VISIT,EST,LEVL III OFFICE/OUTPT VISIT,EST,LEVL IV OFFICE/OUTPT VISIT,EST,LEVL V Sanjeev Montez DO [address] [place] [address] Phone: tel: fax: [facility] Home Care [address] [place] [address] Phone: tel: fax: Referral ID Status Reason Start Date Expiration Date V isits Requested Visits Authorized [id number] Closed Home Health Services 08/29/2022 09/28/2023 12 12 Scheduling Instructions Nursing, P.T. and O.T. Reason for Visit * Reason Onset Date Comments Referral 08/29/2022 Encounter Details Date Type Department Care Team (Late st Contact Info) Description 08/29/2022 Telephone [facility] Medical Group Family & Internal Medicine [facility] [address] [place] [phone] Sanjeev Montez DO [address] [place] [address] Referral Social History Tobacco Use Types Packs/Day [...] 3 07/08/2022 [facility] ional [facility] - Occupational Stress Questionnaire Answer Date [...] Progress Notes * Trixie Jose MA - 08/29/2022 3:19 PM CDT Done and referral team contacted by message. * Lora Eli - 08/29/2022 3:[address]'s name: [facility] Home Health NPI # Tax ID # Phone number Fax number: Reason for referral: Diagnosis I95.1 (ICD-10-CM) - Orthostatic hypotension N17.9 (ICD-10-CM) - OLIVE (acute kidney injury) (CMS/HCC) N18.30 (ICD-10-CM) - CKD (chronic kidney disease), stage III (CMS/HCC) Insurance: [facility] Appointment: 08/30 Needs shelter and PT Call back #:[phone] Neema Last office visit at this office: Last visit with SANJEEV MONTEZ in FAMILY PRACTICE was on: 08/26/2022 in [facility] Future appointment scheduled: Future Appointments Date Time Provider Department Center 09/10/2022 10:40 AM Sanjeev Montez DO FMMRVL [facility] 09/12/2022 11:00 AM Panda Moreno MD [facility] documented in this encounter Plan of Treatment Upcoming Encounters Date Type Department Care Team (Late st Contact Info) Description 04/14/2024 2:00 PM FRICTION WELDING MACHINE OPERATOR Office Visit [facility] Medical Group Multispecialty Care - [facility] 3 [facility], [address] [place] [address] Julio Pulido MD [address] [place] [address] Scheduled Referrals Name Type Priority Associated Diagnoses Orde r Schedule Abbreviated Ambulatory Referral to Home Health Referral MEGAN OLIVE (acute kidney injury) Orthostatic hypotension CKD (chronic kidney disease) Ordered: 08/29/2022 documented as of this encounter Goals Goal Patient Goal Type Associated Problems Recent Progress Patient-Stated? Author Health - patient able to perform ADLs independently General On track(2023 9:49 AM CDT) Dianne Corona RN Note: 12/17/23: Patient stated she is independent with ASL's. Establish Plan for Symptom Monitoring-CHF General On track(2023 11:36 AM FRICTION WELDING MACHINE OPERATOR) Dianne Corona RN Note: Patient [...] Symptom Monitoring-COPD General On track(2023 11:36 AM FRICTION WELDING MACHINE OPERATOR) Dianne Corona RN Note: Patient [...] Symptom Monitoring-DM General On track(2023 4:33 PM FRICTION WELDING MACHINE OPERATOR) Dianne Corona RN Note: Patient [...] Symptom Monitoring-HTN General On track(2023 4:33 PM FRICTION WELDING MACHINE OPERATOR) No Dianne Johnson, RN Note: [...] Visit Diagnoses Diagnosis OLIVE (acute kidney injury) ([facility])- Primary Acute kidney failure, unspecified Orthostatic hypotension CKD (chronic kidney disease) Chronic kidney disease, unspecified documented in this encounter Additional Health Concerns Assessment Noted Time PHQ-9 Depression Total Score: 3 12/24/19 22 11:48 AM CDT documented as of this encounter Care Teams Manager Requirements Relationship Specialty Start Date End Date Sanjeev Montez DO [address] [place] [address] PCP - General FAMILY PRACTICE 09/25/20 Dianne Johnson, RN [address] [place] [address] Orchard Manager (Ambulatory) REGISTERED NURSE 08/14/20 documented as of this encounter
--- OUTSIDE RECORDS SUMMARY | 2024-03-15 00:58 | XMS_ITS | Encounter Summary ---
Author Organization [facility] Address [facility] [place] [address] [place] [address] Care Team Providers Care Training Professional Name Role Phone Dianne Johnson RN Unavailable [phone] Sanjeev Webster DO Primary Care Provider + Reason for Visit * Reason Onset Date Comments Reschedule 10/15/2022 Encounter Details Date Type Department Care Team (Late st Contact Info) Description 10/15/2022 Telephone [facility] Diabetes and Endocrinology [place] [address] [facility] [place] [address] Panda Moreno MD Reschedule Social History Tobacco Use Types Packs/Day Years [...] week 08/26/2022 How often do you attend [facility] or mandaeism services? More than 4 times [...] Recorded Patient Health Questionnaire-2 Score 3 07/08/2022 [facility] Occupat ional Health - Occupational [...] CDT Schniepp, [place] M, RN Active documented as of this encounter Mental Status * Because of a physical, mental, or emotional condition, do you have serious difficulty concentrating, remembering, or making decisions? Answer Entry Date Author Status No 08/26/2022 7:46 PM CDT [place] Gunderson RN Active documented in this encounter Progress Notes * Taina Garcia - 10/16/2022 11:03 AM CDT LVM for patient's PCP office ([facility]) patient's appt scheduled for Thursday02/02/2023@11:40am. * Dianne Johnson RN - 10/16/2022 9:37 AM CDT Taina, Please schedule patient to see in January around 11:40 am. Please send message back and Iwill reach out to patient. Thank you. * Taina Garcia - 10/15/2022 3:18 PM CDT Returned patient's PCP office ([facility]) to rescheduled patient's provider cancelled appt for 10/14/2022. LVM with some appt availability in January 2023. * Fátima Terrazas - 10/15/2022 3:02 PM CDT Blanca with Dr. Webster's office calling to reschedule pt's appt that was canceled for yesterday. # [phone], Ok to leave a detailed message on voice mail. documented in this encounter Plan of Treatment Upcoming Encounters Date Type Department Care Team (Late st Contact Info) Description 04/14/2024 2:00 PM DIETITIAN Office Visit [facility] Multispecialty [facility] [address] [facility], [address] [place] [phone] Julio Pulido MD [address] [place] [address] documented as of this encounter Goals Goal Patient Goal Type Associated Problems Recent Progress Patient-Stated? Author Health - patient able to perform ADLs independently General On track(2023 9:49 AM CDT) Dianne Corona, DALE Note: 12/17/23: Patient stated she is independent with ASL's. Establish Plan for Symptom Monitoring-CHF General On track(2023 11:36 AM DIETITIAN) Dianne Corona RN Note: Patient will recognize [...] Symptom Monitoring-COPD General On track(2023 11:36 AM DIETITIAN) Dianne Corona RN Note: Patient will recognize [...] Symptom Monitoring-DM General On track(2023 4:33 PM DIETITIAN) Dianne Corona RN Note: Patient will manage [...] Symptom Monitoring-HTN General On track(2023 4:33 PM DIETITIAN) Dianne Corona RN Note: Patient will monitor [...] documented as of this encounter Care Teams Training Professional Relationship Specialty Start Date End Date Sanjeev Webster DO [address] [place] [address] PCP - General FAMILY PRACTICE 09/25/20 Dianne Johnson RN [address] [place] [address] Vocational Case Manager (Ambulatory) REGISTERED NURSE 08/14/20 documented as of this encounter
--- OUTSIDE RECORDS SUMMARY | 2024-03-15 00:58 | XMS_ITS | Encounter Summary ---
Author Organization [facility] Address [facility]6 [facility] [place] [address] [place] [address] Care Team Providers Care Photography Instructor Name Role Phone Dianne Johnson RN Unavailable [phone] Sanjeev Webster DO Primary Care Provider + Reason for Visit * Reason Onset Date Comments Appointment Reminder 10/20/2022 Lab Results 10/20/2022 PT/INR at [facility] on Encounter Details Date Type Department Care Team (Late st Contact Info) Description 10/20/2022 Telephone [facility] Medical Group Family & Internal Medicine [address] [address] Sanjeev Webster DO [address] [place] [address] Appointment Reminder; Lab Results (PT/INR at [facility]) Social History Tobacco Use Types Packs/Day Years [...] Recorded Patient Health Questionnaire-2 Score 3 07/08/2022 [facility] of Occupat ional Health - Occupational Stress [...] Progress Notes * Yenifer Wolf MA - 10/20/2022 4:09 PM CDTAddended by: YENIFER WOLF on: 10/20/2022 04:09 PM Modules accepted: Orders * Yenifer Wolf MA - 10/20/2022 4:03 PM CDT Lab ordered and faxed to [facility]. Order also placed at desk assistant for moss picker. The patient was notified of the above via . Informed patient to r/c if she has questions or concerns. * Dianne Johnson RN - 10/20/2022 2:36 PM CDT Patient had PT/INR done at [facility] on . She is requesting results. Contacted patient to inform appointment with has been rescheduled for 02/02/23 at 11:40 amat [address] [facility], [address], [place]. Patient wrote down information. documented in this encounter Plan of Treatment Upcoming Encounters Date Type Department Care Team (Late st Contact Info) Description 04/14/2024 2:00 PM ADMINISTRATIVE JOB TITLES Office Visit [facility] Medical Group Multispecialty Care - [facility] 3 [facility], [address] [place] [address] Julio Pulido MD [address] [place] [address] documented as of this encounter Goals Goal Patient Goal Type Associated Problems Recent Progress Patient-Stated? Author Health - patient able to perform ADLs independently General On track(2023 9:49 AM CDT) Dianne Corona RN Note: 12/17/23: Patient stated she is independent with ASL's. Establish Plan for Symptom Monitoring-CHF General On track(2023 11:36 AM ADMINISTRATIVE JOB TITLES) Dianne Corona RN Note: Patient will recognize [...] Monitoring-COPD General On track(2023 11:36 AM ADMINISTRATIVE JOB TITLES) Dianne Corona RN Note: Patient will recognize [...] Monitoring-DM General On track(2023 4:33 PM ADMINISTRATIVE JOB TITLES) Dianne Corona RN Note: Patient will manage [...] Monitoring-HTN General On track(2023 4:33 PM ADMINISTRATIVE JOB TITLES) Dianne Corona RN Note: Patient will monitor [...] documented as of this encounter Care Teams Photography Instructor Relationship Specialty Start Date End Date Sanjeev Webster DO [address] [place] [address] PCP - General FAMILY PRACTICE 09/25/20 Dianne Johnson, RN [address] [place] [address] Property Master (Ambulatory) REGISTERED NURSE 08/14/20 documented as of this encounter
--- OUTSIDE RECORDS SUMMARY | 2024-03-15 00:58 | XMS_ITS | Encounter Summary ---
Author Organization [facility] Address [facility]6 [facility] [place] [address] [place] [address] Care Team Providers Care Cnc Mill Operator Name Role Phone Dianne Johnson RN Unavailable [phone] Sanjeev Webster DO Primary Care Provider + Reason for Visit * Reason Onset Date Comments Refill Request 10/15/2022 Lab Order 10/15/2022 Encounter Details Date Type Department Care Team (Late st Contact Info) Description 10/15/2022 Telephone [facility] Medical Group Family & Internal Medicine [place] [address] [place] [address] Sanjeev Webster DO [address] [place] [address] Refill Request; Lab Order Social History Tobacco Use Types [...] Recorded Patient Health Questionnaire-2 Score 3 07/08/2022 [facility] of Occupat ional [...] PM CDT [place] Gundreson RN Active documented as of this encounter Mental Status * Because of a physical, mental, or emotional condition, do you have serious difficulty concentrating, remembering, or making decisions? Answer Entry Date Author Status No 08/26/2022 7:46 PM CDT [place] Gunderson RN Active documented in this encounter Progress Notes * Yenifer Wolf MA - 10/15/2022 3:05 PM CDT Spoke with patient and informed her order was faxed and placed up front for warehouse order picker. The patient v/u and will pick order up before going to lab. Med request sent to provider for approval. * Yenifer Wolf MA - 10/15/2022 3:02 PM CDTAddended by: YENIFER WOLF on: 10/15/2022 03:02 PM Modules accepted: Orders * Dianne Johnson RN - 10/15/2022 2:04 PM CDT Please address the following: Patient needing PT/INR done at [facility]. She's requesting lab order faxed to [facility]. Plans on having this done tomorrow around 2:00 PM. Please call her when lab order faxed. 2. Requesting hydrocodone/acetaminophen sent to [facility] in [place]. She has 1 pill left. Thank you. documented in this encounter Plan of Treatment Upcoming Encounters Date Type Department Care Team (Late st Contact Info) Description 04/14/2024 2:00 PM LICENSED FINAL EXPENSE AGENTS Office Visit [facility] Medical Group Multispecialty Care - [address], [address] [place] [address] Julio Pulido MD [address] [place] [address] documented as of this encounter Goals Goal Patient Goal Type Associated Problems Recent Progress Patient-Stated? Author Health - patient able to perform ADLs independently General On track(2023 9:49 AM CDT) Dianne Corona RN Note: 12/17/23: Patient stated she is independent with ASL's. Establish Plan for Symptom Monitoring-CHF General On track(2023 11:36 AM LICENSED FINAL EXPENSE AGENTS) Dianne Corona RN Note: Patient will recognize [...] Monitoring-COPD General On track(2023 11:36 AM LICENSED FINAL EXPENSE AGENTS) Dianne Corona RN Note: Patient will recognize [...] Monitoring-DM General On track(2023 4:33 PM LICENSED FINAL EXPENSE AGENTS) Dianne Corona RN Note: Patient will manage [...] Monitoring-HTN General On track(2023 4:33 PM LICENSED FINAL EXPENSE AGENTS) Dianne Corona RN Note: Patient will monitor [...] documented as of this encounter Care Teams Cnc Mill Operator Relationship Specialty Start Date End Date Sanjeev Webster DO [address] [place] [address] PCP - General FAMILY PRACTICE 09/25/20 Dianne Johnson, RN [address] [place] [address] Cloth Washer (Ambulatory) REGISTERED NURSE 08/14/20 documented as of this encounter
--- OUTSIDE RECORDS SUMMARY | 2024-03-15 00:58 | XMS_ITS | Encounter Summary ---
Author Organization [facility] Address [facility] [place] [address] [place] [address] Care Team Providers Care Airflight Attendants Supervisor Name Role Phone Casey Johnson RN Unavailable [phone] Sanjeev Webster DO Primary Care Provider + Reason for Visit * Reason Onset Date Comments Care Management 09/18/2022 Encounter Details Date Type Department Care Team (Late st Contact Info) Description 09/18/2022 Patient Outreach [facility] Medical Group Family & Internal Medicine [address] [address] Casey Johnson, RN [address] [place] [address] Care Management Social History Tobacco [...] Recorded Patient Health Questionnaire-2 Score 3 07/08/2022 [facility] of Occupat ional Health [...] Progress Notes * Casey Johnson RN - 09/18/2022 11:00 AM CDT Chronic Care Management: 09/18/22: Left message to return phone call. 09/18/22: Attempted to contact patient again without a response. Left message earlier to return phone call. Will await a return call. Plan of Care: campus coordinator will continue to follow up by phone, provide resources when needed, educate on disease management, and assess chronic conditions. Upcoming Visit Appointments: Future Appointments Date Time Provider Department Center 10/03/2022 11:15 AM Sania Gomez MD [facility] 10/14/2022 10:20 AM Panda Moreno MD [facility] 11/03/2022 9:20 AM Sanjeev Webster DO MGFMMRVL [facility] Quality care gaps: Health Maintenance Topic [...] test Chronic anticoagulation Coronary artery disease involving [place] coronary artery of [place] heart without angina pectoris Dyspnea on exertion [...] vertebra, initial encounter ([facility]/HCC) Chest pain Contusion of scalp Knee pain [...] disease (CMS/HCC) OLIVE (acute kidney injury) (CMS/HCC) Medications: Current Outpatient Medications Medication Sig Dispense [...] injection 60 mg 60 mg Subcutaneous Once MD CASEY Christine RN documented in this encounter Plan of Treatment Upcoming Encounters Date Type Department Care Team (Late st Contact Info) Description 04/14/2024 2:00 PM ROLLER MAN Office Visit [facility] Medical Group Multispecialty Care - [facility] 3 [facility], [address] [place] [address] Julio Pulido MD [address] [place] [address] documented as of this encounter Goals Goal Patient Goal Type Associated Problems Recent Progress Patient-Stated? Author Health - patient able to perform ADLs independently General On track(2023 9:49 AM CDT) Casey Corona RN Note: 12/17/23: Patient stated she is independent with ASL's. Establish Plan for Symptom Monitoring-CHF General On track(2023 11:36 AM ROLLER MAN) Casey Corona, RN Note: Patient will recognize [...] Symptom Monitoring-COPD General On track(2023 11:36 AM ROLLER MAN) Casey Corona RN Note: Patient will recognize [...] Symptom Monitoring-DM General On track(2023 4:33 PM ROLLER MAN) Casey Corona RN Note: Patient will manage [...] Symptom Monitoring-HTN General On track(2023 4:33 PM ROLLER MAN) Casey Corona, RN Note: Patient will monitor [...] documented as of this encounter Care Teams Airflight Attendants Supervisor Relationship Specialty Start Date End Date Sanjeev Webster DO [address] [place] [address] PCP - General FAMILY PRACTICE 09/25/20 Casey Johnson, RN [address] [place] [address] Avionics System Engineer (Ambulatory) REGISTERED NURSE 08/14/20 documented as of this encounter
--- OUTSIDE RECORDS SUMMARY | 2024-03-15 00:58 | XMS_ITS | Encounter Summary ---
Author Organization [facility] Address [facility] [place] [address] [place] [address] Care Team Providers Care Nail Setter Name Role Phone Dianne Johnson RN Unavailable [phone] Sanjeev Webster DO Primary Care Provider + Reason for Visit * Reason Onset Date Comments Medication 10/07/2022 Question 10/07/2022 Encounter Details Date Type Department Care Team (Late st Contact Info) Description 10/07/2022 Telephone [facility] Medical Group Family & Internal Medicine [id number] [place] [address] Sanjeev Webster DO [address] [place] [address] Medication; Question Social History Tobacco Use Types Packs/Day [...] Recorded Patient Health Questionnaire-2 Score 3 07/08/2022 [facility] [...] Progress Notes * Mike Brown RN - 10/08/2022 11:17 AM CDTAddended by: MIKE BROWN on: 10/08/2022 11:17 AM Modules accepted: Orders * Mike Brown RN - 10/08/2022 11:07 AM CDTAddended by: MIKE BROWN on: 10/08/2022 11:07 AM Modules accepted: Orders * Mike Bronw RN - 10/07/2022 4:36 PM CDT Patient notified and verbalized understanding. Opportunity given for all questions to be answered, no further needs voiced at this time. New script of 20 mg sent to pharmacy. LL-10/07/22 * Sanjeev Webster DO - 10/07/2022 3:12 PM CDT Kidney function stable; continue with current dosing. PT/INR is still low for given condition. Increase warfarin to 8 mg for W, R, and F. Then return to previous 7 mg daily. Recheck PT/INR in 1 week.Will recheck CBC/Bmp in future OV. * Donna Tiny Norwood - 10/07/2022 9:43 AM CDT Radha's daughter in law Magana called in, she has a question about her furosemide rx. Her call back # is [phone]. documented in this encounter Plan of Treatment Upcoming Encounters Date Type Department Care Team (Late st Contact Info) Description 04/14/2024 2:00 PM LOCOMOTIVE LUBRICATING SYSTEMS CLERK Office Visit [facility] Medical Group Multispecialty Care - [facility] [address] [facility], [address] [place] [address] Julio Pulido MD [address] [place] [address] documented as of this encounter Goals Goal Patient Goal Type Associated Problems Recent Progress Patient-Stated? Author Health - patient able to perform ADLs independently General On track(2023 9:49 AM CDT) Dianne Corona, RN Note: 12/17/23: Patient stated she is independent with ASL's. Establish Plan for Symptom Monitoring-CHF General On track(2023 11:36 AM LOCOMOTIVE LUBRICATING SYSTEMS CLERK) Dianne Corona, RN Note: Patient will [...] Symptom Monitoring-COPD General On track(2023 11:36 AM LOCOMOTIVE LUBRICATING SYSTEMS CLERK) Dianne Corona, RN Note: Patient will [...] Symptom Monitoring-DM General On track(2023 4:33 PM LOCOMOTIVE LUBRICATING SYSTEMS CLERK) Dianne Corona RN Note: Patient will [...] Symptom Monitoring-HTN General On track(2023 4:33 PM LOCOMOTIVE LUBRICATING SYSTEMS CLERK) Dianne Corona RN Note: Patient will monitor B/P several times per week , record readings and report to physician or CC if B/P consistently >130/80 Take your medications as prescribed. Follow up with your provider as scheduled. Take your blood pressure at least several times a week if able. documented as of this encounter Visit Diagnoses Diagnosis Hypertensive heart disease with congestive heart failure ([facility])- Primary Unspecified hypertensive heart disease with heart failure documented in this encounter Additional Health Concerns Assessment Noted Time PHQ-9 Depression Total Score: 3 12/24/19 22 11:48 AM CDT documented as of this encounter Care Teams Nail Setter Relationship Specialty Start Date End Date Sanjeev Webster DO [address] [place] [address] PCP - General FAMILY PRACTICE 09/25/20 Dianne Johnson, RN [address] [place] [address] Intermediate Project Manager (Ambulatory) REGISTERED NURSE 08/14/20 documented as of this encounter
--- OUTSIDE RECORDS SUMMARY | 2024-03-15 00:58 | XMS_ITS | Encounter Summary ---
Author Organization [facility] Address [facility] [facility] [place] [address] [place] [address] Care Team Providers Care Mill Tender Washing Name Role Phone Dianne Johnson RN Unavailable [phone] Sanjeev Webster DO Primary Care Provider + Encounter Details Date Type Department Care Team (Late st Contact Info) Description 10/03/2022 Orders Only [place] [facility], [address] [place], [place] [id number] Sania Gomez MD [facility] [address] [place], [place] [id number] Social History Tobacco Use Types Packs/Day Years [...] Recorded Patient Health Questionnaire-2 Score 3 07/08/2022 [facility] - [...] st Contact Info) Description 04/14/2024 2:00 PM LIFE INSURANCE AGENT Office Visit [facility] Medical Group Multispecialty Care - [facility] [address] [facility], [address] [place] [phone] Julio Pulido MD [address] [place] [address] documented as of this encounter Goals Goal Patient Goal Type Associated Problems Recent Progress Patient-Stated? Author Health - patient able to perform ADLs independently General On track(2023 9:49 AM CDT) Dianne Corona RN Note: 12/17/23: Patient stated she is independent with ASL's. Establish Plan for Symptom Monitoring-CHF General On track(2023 11:36 AM LIFE INSURANCE AGENT) Dianne Corona RN Note: Patient will [...] Symptom Monitoring-COPD General On track(2023 11:36 AM LIFE INSURANCE AGENT) Dianne Corona RN Note: Patient will [...] Symptom Monitoring-DM General On track(2023 4:33 PM LIFE INSURANCE AGENT) Dianne Corona RN Note: Patient will [...] Symptom Monitoring-HTN General On track(2023 4:33 PM LIFE INSURANCE AGENT) Dianne Corona RN Note: Patient will monitor B/P several times per week , record readings and report to physician or CC if B/P consistently >130/80 Take your medications as prescribed. Follow up with your provider as scheduled. Take your blood pressure at least several times a week if able. documented as of this encounter Visit Diagnoses Diagnosis Mechanical complication of AV shunt (CMS/[facility])- Primary Mechanical complication of other vascular device, implant, and graft documented in this encounter Additional Health Concerns Assessment Noted Time PHQ-9 Depression Total Score: 3 12/24/19 22 11:48 AM CDT documented as of this encounter Care Teams Mill Tender Washing Relationship Specialty Start Date End Date Sanjeev Webster DO [address] [place] [address] PCP - General FAMILY PRACTICE 09/25/20 Dianne Johnson, RN [address] [place] [address] Health Associate (Ambulatory) REGISTERED NURSE 08/14/20 documented as of this encounter
--- OUTSIDE RECORDS SUMMARY | 2024-03-15 00:59 | XMS_ITS | Encounter Summary ---
Author Organization [facility] Address [facility] [facility] [address] [place] [address] Care Team Providers Care Nurse Paralegal Name Role Phone Dianne Johnson RN Unavailable [phone] Sanjeev Webster DO Primary Care Provider + Reason for Visit * Reason Onset Date Comments [place] 06/12/2022 Encounter Details Date Type Department Care Team (Late st Contact Info) Description 06/12/2022 Telephone [facility] Medical Group Family & Internal Medicine [id number] [place] [address] Sanjeev Webster DO [facility] [place] [address] [place] Social History Tobacco Use Types Packs/Day Years Used Date Smoking Tobacco: Never Passive Smoke Exposure: Past Smokeless Tobacco: Never Comments:non smoker Alcohol Use Standard Drinks/Week Comments Not Currently 0 (1 standard drink = 0.6 oz pur e alcohol) Overall Financial Resource Strain (CARDIA) Answe r Date Recorded How hard is it for you to pa y for the very basics like food, housing, medical care, and heating? Hard 04/03/2022 PHQ-2 Answer Date Recorded Patient Health Questionnaire-2 Score 3 04/17/2022 Hunger Vital Sign Answer Date Recorded Within the past 12 months, y ou worried that your food would run out before you got the money to buy more. Never true 04/03/19 23 Within the past 12 months, t he food you bought just didn't last and you didn't have money to get more. Never true 04/03/2022 PRAPARE - Transportation Answer Date Re corded In the past 12 months, has l ack of transportation kept you from medical appointments or from getting medications? No 03/10 In the past 12 months, has l ack of transportation kept you from meetings, work, or from getting things needed for daily living? No 04/03/2022 Housing Stability Vital Sign Answer Justin e Recorded In the last 12 months, was t here a time when you were not able to pay the mortgage or rent on time? No 04/03/2022 In the last 12 months, how many places have you lived? 1 04/03/2022 In the last 12 months, was t here a time when you did not have a steady place to sleep or slept in a fpc (including now)? No 04/03/2022 Comments No Sex and Gender Information Value Date Recorded Sex Assigned at Not on file Legal Sex Female 11:18 AM CDT Gender Identity Not on file Sexual Orientation Not on file COVID-19 Exposure Response Date Recorded In the last 10 days, have yo u been in contact with someone who was confirmed or suspected to have Coronavirus/COVID-19? No / Unsure 06/03/2022 9:21 AM CDT documented as of this encounter Functional Status * RETIRED Are you deaf or do you have serious difficulty hearing Answer Date of Assessment Author Status Yes 11/05/2021 7:00 PM CDT Activ e * RETIRED Are you blind or do you have serious difficulty seeing, even when wearing glasses? Answer Date of Assessment Author Status Yes 11/05/2021 7:00 PM CDT Activ e * Do you have serious difficulty walking or climbing stairs? Answer Date of Assessment Author Status Yes 11/05/2021 7:00 PM CDT Stephanie Rodriguez R N Active * Do you have difficulty dressing or bathing? Answer Date of Assessment Author Status No 11/05/2021 7:00 PM CDT Stephanie Rodriguez R N Active * Because of a physical, mental, or emotional condition, do you have difficulty doing errands alone such as visiting a doctor's office or shopping? Answer Date of Assessment Author Status Yes 11/05/2021 7:00 PM CDT Stephanie Rodriguez R N Active documented as of this encounter Mental Status * Because of a physical, mental, or emotional condition, do you have serious difficulty concentrating, remembering, or making decisions? Answer Entry Date Author Status No 11/05/2021 7:00 PM CDT Stephanie Rodriguez R N Active documented in this encounter Progress Notes * Yenifer Ingram MA - 06/12/2022 4:13 PM CDT I spoke with patient and informed her of the recommendation. The patient states she has missed a few doses, but she takes it consistently. The patient was informed of the importance of medications. She was advised to take the xanax 4- 67 hours before and after the pain medication. Informed her to call the office next week if there is no relief. * Sanjeev Webster DO - 06/12/2022 2:16 PM CDT Is pt taking gabapentin as prescribed as well as hydrocodone as prescribed? * Scarlett Guerrero MA - 06/12/2022 12:06 PM CDT Patient is in extreme pain from shingles on her back.She is tearful at the time of this call. It isunbearable. She is on pain medications and nothing is helping. She is asking for recommendation. ailyn lira #[phone] Allergic to: tape Bacitracin Benzalkonium Gramicidin Hydrocortisone Neomycin Polymyxin B Adverse Reactions/Drug Intolerances Atorvastatin documented in this encounter Plan of Treatment Upcoming Encounters Date Type Department Care Team (Late st Contact Info) Description 04/14/2024 2:00 PM SERVICE ATTENDANT CAFETERIA Office Visit [facility] Medical Group [facility] [place] [address] [facility], [address] [place] [phone] Julio Pulido MD [address] [place] [address] documented as of this encounter Goals Goal Patient Goal Type Associated Problems Recent Progress Patient-Stated? Author Health - patient able to perform ADLs independently General On track(2023 9:49 AM CDT) Dianne Corona RN Note: 12/17/23: Patient stated she is independent with ASL's. Establish Plan for Symptom Monitoring-CHF General On track(2023 11:36 AM SERVICE ATTENDANT CAFETERIA) Dianne Corona RN Note: Patient will recognize [...] Monitoring-COPD General On track(2023 11:36 AM SERVICE ATTENDANT CAFETERIA) Dianne Corona RN Note: Patient will recognize [...] Monitoring-DM General On track(2023 4:33 PM SERVICE ATTENDANT CAFETERIA) No Johnson, Dianne R, RN Note: Patient [...] Monitoring-HTN General On track(2023 4:33 PM SERVICE ATTENDANT CAFETERIA) No Dianne Johnson RN Note: Patient will [...] documented as of this encounter Care Teams Nurse Paralegal Relationship Specialty Start Date End Date Sanjeev Webster DO [address] [place] [address] PCP - General FAMILY PRACTICE 09/25/20 Dianne Johnson RN [address] [place] [address] Brake Specialist (Ambulatory) REGISTERED NURSE 08/14/20 documented as of this encounter
--- OUTSIDE RECORDS SUMMARY | 2024-03-15 00:59 | XMS_ITS | Encounter Summary ---
Author Organization [facility] Address [facility] [facility] [place] [address] [place] [address] Care Team Providers Care Rn Care Transition Name Role Phone Casey Johnson RN Unavailable [phone] Sanjeev Webster DO Primary Care Provider + Reason for Visit * Reason Onset Date Comments Care Management 08/25/2022 Encounter Details Date Type Department Care Team (Late st Contact Info) Description 08/25/2022 Patient Outreach [facility] Medical Group Family & Internal Medicine [address] [address] Casey Johnson, RN [address] [place] [address] Care Management Social History Tobacco [...] How often do you attend chur or presybeterian services? More than 4 times [...] Patient Health Questionnaire-2 Score 3 07/08/2022 [facility] [...] No 08/26/2022 Housing Stability Vital Sign Answer Jusitn e Recorded In the last 12 months, [...] Progress Notes * Casey Johnson RN - 08/25/2022 4:02 PM CDT Chronic Care Management: Patient concerns or urgent matters that need addressed: Patient called c/o non-productive cough, slight S/T, and nasal congestion since Thursday. Nasal spray is not helping. Denies fever or swelling. Stated she is sob at times. Uses inhaler for relief. Brakes on her car not working. Stated she will see if her sister can take her tomorrow to see if he has an opening. Appointment scheduled tomorrow at 2:00 PM. Encouraged to arrive by 1:50PM to register or call CC back tonight if she can't get a ride. Patient verbalizes understanding. Patient Status: Patient called stating I have a cold. See s/s above for details. Denies any issues with swellingor weight gain. She is using inhaler for sob. Reports drinking lots of water and eating soup. Nose spray is not helping with nasal congestion. Reports back hurting her since she's been out of painmedication. Stated she plans on asking for refill tomorrow. A1C on 07/07/22: 6.6 %. She is up-to-date. Encourage patient to call if her sister unable to bring her in tomorrow. Patient verbalizes understanding. Plan of Care: employee communications coordinator will continue to follow up by [...] Future Appointments Date Time Provider Department Center 08/26/2022 2:00 PM Sanjeev Webster DO [id number] 09/12/2022 11:00 AM Panda Moreno MD [facility] Quality care gaps: Health Maintenance Topic Date Due Kidney Health Evaluation Never done Annual Medicare Wellness Visit Never done Lipid Panel 08/29/2022 Zoster Vaccines (1 of 2) 03/31/2023 [...] of thoracic vertebra (CMS/HCC) Depression Diabetic polyneuropathy ([facility]) Disorder of rotator cuff Diverticular disease Dysphagia Elevated troponin Gastroesophageal reflux disease without esophagitis Hyperlipidemia, unspecified hyperlipidemia type Vascular dementia (CMS/HCC) Unknown and unspecified causes of morbidity Syncope, unspecified syncope type Senile purpura (CMS/[facility]) Wrist joint pain Respiratory illness Requires lifelong warfarin therapy Secondary hyperparathyroidism (CMS/HCC) Presence of prosthetic heart valve Plantar fascial fibromatosis Peripheral neuropathy Parathyroid adenoma Polymyalgia rheumatica (CMS/HCC) Osteoporosis Numbness Muscle cramps Closed stable burst fracture of sixth thoracic vertebra, initial encounter ([facility]) Chest pain Contusion of scalp Knee pain Localized, primary osteoarthritis Osteoarthritis of knee Traumatic closed displaced fracture of distal end of radius Shoulder joint pain Hyperlipidemia associated with type 2 diabetes mellitus (CMS/HCC) PVD (peripheral vascular disease) ([facility]/HCC) Hematoma Anxiety Diastolic heart failure (CMS/HCC) Internal hemorrhoids Leukoencephalopathy Major depression single episode, in partial remission (CMS/HCC) Metacarpal bone fracture Mitral valve disorder Purpura (CMS/HCC) Peripheral arterial occlusive disease ([facility]/HCC) Primary osteoarthritis involving multiple joints Vision loss [...] (CMS/HCC) Stage 3b chronic kidney disease (CMS/HCC) Medications: Current Outpatient Medications Medication Sig [...] daily. furosemide (LASIX) 80 MG tablet Take 1 tablet (80 mg total) by mouth daily. 30 tablet 2 gabapentin (NEURONTIN) 300 MG capsule Take 1 [...] total) by mouth daily. 30 capsule 2 lisinopril (PRINIVIL) 20 MG tablet Take 1 tablet by mouth once daily 30 tablet 2 methIMAzole (TAPAZOLE) 10 MG tablet Take [...] 7 Time spent performing chart review (minutes): 8 Total time (minutes): 15 CASEY JOHNSON RN I reviewed the patient's status and education provided by CASEY JOHNSON RN. I agree with the findings and recommendations made. Cosigned by Sanjeev Webster DO at 08/25/2022 10:47 PM CDT documented in this encounter Plan of Treatment Upcoming Encounters Date Type Department Care Team (Late st Contact Info) Description 04/14/2024 2:00 PM APRON TRIMMER Office Visit [facility] Medical Group Multispecialty Care - [facility] [address] [facility], [address] [place] [address] Julio Pulido MD [address] [place] [address] documented as of this encounter Goals Goal Patient Goal Type Associated Problems Recent Progress Patient-Stated? Author Health - patient able to perform ADLs independently General On track(2023 9:49 AM CDT) Casey Corona RN Note: 12/17/23: Patient stated she is independent with ASL's. Establish Plan for Symptom Monitoring-CHF General On track(2023 11:36 AM APRON TRIMMER) Casey Corona RN Note: Patient will recognize [...] Symptom Monitoring-COPD General On track(2023 11:36 AM APRON TRIMMER) Casey Corona RN Note: Patient will recognize [...] Symptom Monitoring-DM General On track(2023 4:33 PM APRON TRIMMER) Casey Corona, RN Note: Patient will manage [...] Symptom Monitoring-HTN General On track(2023 4:33 PM APRON TRIMMER) Casey Corona RN Note: Patient will monitor [...] failure with preserved ejection fraction (HFpEF) ([facility])- Primary Type 2 diabetes mellitus with stage 3b chronic kidney disease, without long-term current use of insulin ([facility]) COPD (chronic obstructive pulmonary disease) ([facility]) Chronic airway obstruction, not elsewhere classified documented in this encounter Additional Health Concerns Assessment Noted Time PHQ-9 Depression Total Score: 3 12/24/19 22 11:48 AM CDT documented as of this encounter Care Teams Rn Care Transition Relationship Specialty Start Date End Date Sanjeev Webster DO [address] [place] [id number] PCP - General FAMILY PRACTICE 09/25/20 Casey Johnson, RN [address] [place] [address] Assembler For Puller Over Hand (Ambulatory) REGISTERED NURSE 08/14/20 documented as of this encounter
--- OUTSIDE RECORDS SUMMARY | 2024-03-15 00:59 | XMS_ITS | Encounter Summary ---
Author Organization [facility] Address [facility]6 [place] [address] [place] [address] Care Team Providers Care Director Of Restaurant Operations Name Role Phone Dianne Johnson RN Unavailable [phone] Sanjeev Webster DO Primary Care Provider + Reason for Visit * Reason Comments Image (SCAN) Encounter Details Date Type Department Care Team (Latest Contact Info) Description 08/27/2022 Scan HEALTH INFO SRVCS Scanned, Doc Med [...] Recorded Patient Health Questionnaire-2 Score 3 07/08/2022 [facility] Questionnaire Answer [...] Contact Info) Description 04/14/2024 2:00 PM LEAD ELECTRICAL CONTROLS ENGINEER Office Visit [facility] Medical Group Multispecialty Care - [facility] 3 [facility], [address] [place] [address] Julio Pulido MD [address] [place] [address] documented as of this encounter Goals Goal Patient Goal Type Associated Problems Recent Progress Patient-Stated? Author Health - patient able to perform ADLs independently General On track(2023 9:49 AM CDT) Dianne Corona RN Note: 12/17/23: Patient stated she is independent with ASL's. Establish Plan for Symptom Monitoring-CHF General On track(2023 11:36 AM LEAD ELECTRICAL CONTROLS ENGINEER) Dianne Corona RN Note: Patient will [...] Monitoring-COPD General On track(2023 11:36 AM LEAD ELECTRICAL CONTROLS ENGINEER) Dianne Corona RN Note: Patient will [...] Monitoring-DM General On track(2023 4:33 PM LEAD ELECTRICAL CONTROLS ENGINEER) Dianne Corona, RN Note: Patient will [...] Monitoring-HTN General On track(2023 4:33 PM LEAD ELECTRICAL CONTROLS ENGINEER) Dianne Corona, RN Note: Patient will [...] Priority Date/Time Associated Diagnosis Comments IMAGE GENERIC 08/27/2022 documented in this encounter Results * IMAGE GENERIC (08/27/2022) Anatomical Region Laterality Modality Other 08/27/2022 [facility] Scanned SCANNING Final Resu lt documented in this encounter Visit Diagnoses Not on filedocumented in this encounter Additional Health Concerns Assessment Noted Time PHQ-9 Depression Total Score: 3 12/24/19 22 11:48 AM CDT documented as of this encounter Care Teams Director Of Restaurant Operations Relationship Specialty Start Date End Date Sanjeev Webster DO [address] [place] [address] PCP - General FAMILY PRACTICE 09/25/20 Dianne Johnson, RN [address] [place] [address] Hemodialysis Charge Nurse (Ambulatory) REGISTERED NURSE 08/14/20 documented as of this encounter
--- OUTSIDE RECORDS SUMMARY | 2024-03-15 00:59 | XMS_ITS | Encounter Summary ---
Author Organization [facility] Address [facility] [facility] [place] [place] [address] [place] [address] Care Team Providers Care Product Control And Logistics Analyst Name Role Phone Dianne Johnson RN Unavailable [phone] Sanjeev Webster DO Primary Care Provider + Reason for Visit * Reason Onset Date Comments Information 06/17/2022 Encounter Details Date Type Department Care Team (Late st Contact Info) Description 06/17/2022 Telephone [facility] Medical Group Family & Internal Medicine [address] [place] [address] Sanjeev Webster DO [facility] [place] [address] Information Social History Tobacco Use [...] slept in a longterm (including now)? No 04/03/2022 Comments No Sex [...] Progress Notes * Dianne Johnson RN - 06/17/2022 1:56 PM CDT FYI: Last PT/INR done on 04/25/22. Patient stated she will get PT/INR done at next appointment on 06/23/22. Stated she may see her sister in [place] around that time. If so, she will call and reschedule. documented in this encounter Plan of Treatment Upcoming Encounters Date Type Department Care Team (Late st Contact Info) Description 04/14/2024 2:00 PM NEWSPAPER DISTRIBUTOR SUPERVISOR Office Visit [facility] Medical Group Multispecialty Care - [facility] [address] [facility], [address] [place] [phone] Julio Pulido MD 3 [place] [address] documented as of this encounter Goals Goal Patient Goal Type Associated Problems Recent Progress Patient-Stated? Author Health - patient able to perform ADLs independently General On track(2023 9:49 AM CDT) No Dianne Johnson RN Note: 12/17/23: Patient stated she is independent with ASL's. Establish Plan for Symptom Monitoring-CHF General On track(2023 11:36 AM NEWSPAPER DISTRIBUTOR SUPERVISOR) Dianne Corona RN Note: Patient will [...] Symptom Monitoring-COPD General On track(2023 11:36 AM NEWSPAPER DISTRIBUTOR SUPERVISOR) Dianne Corona RN Note: Patient will [...] Symptom Monitoring-DM General On track(2023 4:33 PM NEWSPAPER DISTRIBUTOR SUPERVISOR) Dianne Corona RN Note: Patient will [...] Symptom Monitoring-HTN General On track(2023 4:33 PM NEWSPAPER DISTRIBUTOR SUPERVISOR) Dianne Corona RN Note: Patient will [...] as of this encounter Care Teams Product Control And Logistics Analyst Relationship Specialty Start Date End Date Sanjeev Webster DO [address] [place] [address] PCP - General FAMILY PRACTICE 09/25/20 Dianne Johnson, RN [address] [place] [address] Mechanical Car Checker (Ambulatory) REGISTERED NURSE 08/14/20 documented as of this encounter
--- OUTSIDE RECORDS SUMMARY | 2024-03-15 00:59 | XMS_ITS | Encounter Summary ---
Author Organization [facility] Address [facility] [place] [address] [place] [address] Care Team Providers Care Cable Hooker Name Role Phone Dianne Johnson RN Unavailable [phone] Sanjeev Webster DO Primary Care Provider + Reason for Visit * Reason Comments CT (SCAN) Encounter Details Date Type Department Care Team (Latest Contact Info) Description 08/26/2022 Scan HEALTH INFO SRVCS Scanned, Doc Med Group CT (SCAN) Social History Tobacco Use Types [...] Recorded Patient Health Questionnaire-2 Score 3 07/08/2022 [facility] - Occupational Stress Questionnaire Answer Date [...] as of this encounter Functional Status * Question Answer Date of Assessment Author Status Do you have serious difficulty walking or climbing stairs? Yes 08/26/2022 7:46 PM CDT Indiana Gunderson RN Ac tive * Question Answer Date of Assessment Author Status Do you have difficulty dressing or bathing? No 08/26/2022 7:46 PM CDT Indiana Gunderson R N Active Because of a physical, mental, or emotional condition, do you have difficulty doing errands alone such as visiting a doctor's office or shopping? No 08/26/2022 7:46 PM DARRYLT [place] Gunderson RN Act julien * RETIRED Are you deaf or do [...] 11/05/2021 7:00 PM CDT Stephanie Rodriguez R Supriya Active * Do you have difficulty dressing [...] as of this encounter Mental Status * Question Answer Entry Date Author Status Because of a physical, mental, or emotional condition, do you have serious difficulty concentrating, remembering, or making decisions? No 08/26/2022 7:46 PM CDT Indiana Gunderson R N Active * Because of a physical, mental, or emotional condition, do you have serious difficulty concentrating, remembering, or making decisions? Answer Entry Date Author Status No 11/05/2021 7:00 PM CDT Stephanie Rodriguez R N Active documented in this encounter Plan of Treatment Upcoming Encounters Date Type Department Care Team (Late st Contact Info) Description 04/14/2024 2:00 PM TOOL TURRET LATHE SET UP OPERATOR Office Visit [facility] Medical Group Multispecialty Care - [facility] [address] [facility], [address] [place] [id number] Julio Pulido MD 3 [place] [address] documented as of this encounter Goals Goal Patient Goal Type Associated Problems Recent Progress Patient-Stated? Author Health - patient able to perform ADLs independently General On track(2023 9:49 AM CDT) No Dianne Johnson RN Note: 12/17/23: Patient stated she is independent with ASL's. Establish Plan for Symptom Monitoring-CHF General On track(2023 11:36 AM TOOL TURRET LATHE SET UP OPERATOR) Dianne Corona, RN Note: Patient will [...] Symptom Monitoring-COPD General On track(2023 11:36 AM TOOL TURRET LATHE SET UP OPERATOR) Dianne Corona RN Note: [...] Symptom Monitoring-DM General On track(2023 4:33 PM TOOL TURRET LATHE SET UP OPERATOR) Dianne Corona, RN Note: Patient will [...] Symptom Monitoring-HTN General On track(2023 4:33 PM TOOL TURRET LATHE SET UP OPERATOR) Dianne Corona RN Note: [...] Procedure Name Priority Date/Time Associated Diagnosis Comments CT GENERIC 08/26/2022 documented in this encounter Results * CT GENERIC (08/26/2022) Anatomical Region Laterality Modality Other 08/26/2022 us Doc Med [facility] Scanned SCANNING Final Resu lt documented in this encounter Visit Diagnoses Not on filedocumented in this encounter Additional Health Concerns Infection Onset Date Last Indicated Resolved Time COVID-19 Rule Out 08/26/2022 08/26/2022 08/26/2022 4:56 PM CDT Assessment Noted Time PHQ-9 Depression Total Score: 3 12/24/19 22 11:48 AM CDT documented as of this encounter Care Teams Cable Hooker Relationship Specialty Start Date End Date Sanjeev Webster DO [address] [place] [address] PCP - General FAMILY PRACTICE 09/25/20 Dianne Johnson, RN [address] [place] [address] Process Development Chemist (Ambulatory) REGISTERED NURSE 08/14/20 documented as of this encounter
--- OUTSIDE RECORDS SUMMARY | 2024-03-15 00:59 | XMS_ITS | Encounter Summary ---
Author Organization [facility] Address [address] [facility] [place] [address] [place] [address] Care Team Providers Care Lead Database Administrator Name Role Phone Dianne Johnson RN Unavailable [phone] Sanjeev Webster DO Primary Care Provider + Encounter Details Date Type Department Care Team (Late st Contact Info) Description 07/03/2022 Orders Only [facility] Medical Group Diabetes and Endocrinology - [place] [address] [place] [address] Panda Moreno MD Social History Tobacco Use Types Packs/Day [...] suspected to have Coronavirus/COVID-19? No / Unsure 06/25/2022 1:50 PM CDT documented as of this encounter Functional [...] st Contact Info) Description 04/14/2024 2:00 PM ACCOUNTS RECEIVABLE ASSOCIATE Office Visit [facility] Medical Group Multispecialty Care - [facility] [address] [facility], [address] [place] [address] Julio Pulido MD 3 [place] [address] documented as of this encounter Goals Goal Patient Goal Type Associated Problems Recent Progress Patient-Stated? Author Health - patient able to perform ADLs independently General On track(2023 9:49 AM CDT) Dianne Corona RN Note: 12/17/23: Patient stated she is independent with ASL's. Establish Plan for Symptom Monitoring-CHF General On track(2023 11:36 AM ACCOUNTS RECEIVABLE ASSOCIATE) Dianne Corona, DALE Note: Patient will recognize [...] Symptom Monitoring-COPD General On track(2023 11:36 AM ACCOUNTS RECEIVABLE ASSOCIATE) Dianne Corona RN Note: Patient will [...] Symptom Monitoring-DM General On track(2023 4:33 PM ACCOUNTS RECEIVABLE ASSOCIATE) Dianne Corona RN Note: Patient will [...] Symptom Monitoring-HTN General On track(2023 4:33 PM ACCOUNTS RECEIVABLE ASSOCIATE) Dianne Corona RN Note: Patient will [...] documented as of this encounter Care Teams Lead Database Administrator Relationship Specialty Start Date End Date Sanjeev Webster DO [address] [place] [address] PCP - General FAMILY PRACTICE 09/25/20 Dianne Johnson RN [address] [place] [address] Hematology Oncology Consultant (Ambulatory) REGISTERED NURSE 08/14/20 documented as of this encounter
--- OUTSIDE RECORDS SUMMARY | 2024-03-15 00:59 | XMS_ITS | Encounter Summary ---
Author Organization [facility] Address [facility] [place] [address] [place] [address] Care Team Providers Care Data Analysis Intern Name Role Phone Dianne Johnson RN Unavailable [phone] Sanjeev Webster DO Primary Care Provider + Reason for Visit * Reason Onset Date Comments Results 06/27/2022 Encounter Details Date Type Department Care Team (Late st Contact Info) Description 06/27/2022 Telephone [facility] Medical Group Family & Internal Medicine [address] [place] [address] Sanjeev Webster DO [facility] [place] [address] Results Social History Tobacco Use [...] slept in a assisted (including now)? No 04/03/2022 Comments No Sex [...] Progress Notes * Yenifer Ingram MA - 06/27/2022 12:06 PM CDT Spoke with patient and informed her of results. INR appt schedule dfor 07/28/2022 at 2:20PM * Yenifer Ingram MA - 06/27/2022 12:05 PM CDT ----- Message from Sanjeev Webster DO sent at 06/25/2022 4:00 PM CDT ----- Stable; repeat in 1 month. documented in this encounter Plan of Treatment Upcoming Encounters Date Type Department Care Team (Late st Contact Info) Description 04/14/2024 2:00 PM MANAGER GREEN Office Visit [facility] Medical Group Multispecialty Care - [facility] [address] [facility], [address] [place] [phone] Julio Pulido MD 3 [place] [address] documented as of this encounter Goals Goal Patient Goal Type Associated Problems Recent Progress Patient-Stated? Author Health - patient able to perform ADLs independently General On track(2023 9:49 AM CDT) No Dianne Johnson RN Note: 12/17/23: Patient stated she is independent with ASL's. Establish Plan for Symptom Monitoring-CHF General On track(2023 11:36 AM MANAGER GREEN) Dianne Corona RN Note: Patient will recognize [...] Monitoring-COPD General On track(2023 11:36 AM MANAGER GREEN) Dianne Corona RN Note: Patient will recognize [...] Monitoring-DM General On track(2023 4:33 PM MANAGER GREEN) Dianne Corona RN Note: Patient will manage [...] Monitoring-HTN General On track(2023 4:33 PM MANAGER GREEN) No Dianne Johnson RN Note: Patient will [...] documented as of this encounter Care Teams Data Analysis Intern Relationship Specialty Start Date End Date Sanjeev Webster DO [address] [place] [address] PCP - General FAMILY PRACTICE 09/25/20 Dianne Johnson, RN [address] [place] [address] Retail Manager In Training (Ambulatory) REGISTERED NURSE 08/14/20 documented as of this encounter
--- OUTSIDE RECORDS SUMMARY | 2024-03-15 00:59 | XMS_ITS | Encounter Summary ---
Author Organization [facility] Address [facility] [facility] [place] [address] [place] [address] Care Team Providers Care Traffic Superintendent Name Role Phone Dianne Johnson RN Unavailable [phone] Sanjeev Webster DO Primary Care Provider + Encounter Details Date Type Department Care Team (Latest Contact Info) Description 08/26/2022 - 08/26/2022 4:00 PM CDT Hospital Encounter [facility] [address] [place] [address] Sanjeev Webster DO [address] [place] [address] Discharge Disposition: Home or Self [...] Recorded Patient Health Questionnaire-2 Score 3 07/08/2022 [facility] - Occupational [...] R N Active documented in this encounter Medications at Time of Discharge acetaminophen (TYLENOL) 500 MG tablet Take 1 tablet (500 mg total) by mouth daily as needed. No more then 2500 mg per day. 08/17/2020 Cholecalciferol (VITAMIN D3) 25 MCG (1000 UT) Cap Take 1 capsule (1,000 Units total) by mouth daily. albuterol sulfate HFA 108 (90 Base) MCG/ACT inhalerIndications:Ch ronic obstructive pulmonary disease, unspecified COPD type ([facility]) Inhale 2 puffs into the lungs every 6 (six) hours as needed for Wheezing. 18 g 1 06/24/2022 3 ALPRAZolam (XANAX) 0.5 MG tabletIndications:Anx iety TAKE 1/2 (ONE-HALF) TABLET BY MOUTH NIGHTLY NEEDED FOR SLEEP 15 tablet 07/24/2022 3 ALPRAZolam (XANAX) 0.5 MG tabletIndications:Anx iety TAKE 1/2 (ONE-HALF) TABLET BY MOUTH NIGHTLY NEEDED FOR SLEEP 15 tablet 08/28/2022 3 furosemide (LASIX) 80 MG tabletIndications:Chr onic heart failure with preserved ejection fraction (HFpEF) ([facility]) Take 1 tablet (80 mg total) by mouth daily. 30 tablet 2 06/03/2022 3 furosemide (LASIX) 80 MG tabletIndications:Chr onic heart failure with preserved ejection fraction (HFpEF) ([facility]) Take 0.5 tablets (40 mg total) by mouth daily. 30 tablet 08/29/2022 4 gabapentin (NEURONTIN) 300 MG capsuleIndications:Ch ronic low back pain, unspecified back pain laterality, unspecified whether sciatica present Take 1 capsule (300 mg total) by mouth 3 (three) times daily. 270 capsule 05/20/2022 02/13/202 4 HYDROcodone-acetamino phen (NORCO) 10-325 MG tabletIndications:Chr onic Pain Take 1 tablet by mouth every 6 (six) hours as needed for Pain. Indications: Chronic Pain Do not take with alprazolam. 30 tablet 05/20/2022 3 iron polysaccharides (NIFEREX) 150 MG capsuleIndications:Ir on deficiency anemia, unspecified iron deficiency anemia type Take 1 capsule (150 mg total) by mouth daily. 30 capsule 2 06/03/2022 4 lisinopril (PRINIVIL) 20 MG tabletIndications:Hyp ertension associated with type 2 diabetes mellitus ([facility]/HCC HHS/HCC) Take 1 tablet by mouth once daily 30 tablet 2 06/23/2022 3 lisinopril (PRINIVIL) 20 MG tabletIndications:Hyp ertension associated with type 2 diabetes mellitus (CMS/HCC HHS/HCC) Take 0.5 tablets (10 mg total) by mouth daily. 30 tablet 2 08/29/2022 3 methIMAzole (TAPAZOLE) 10 MG tabletIndications:Hyp erthyroidism Take 1 tablet by mouth once daily 90 tablet 1 02/07/2022 3 metoprolol tartrate (LOPRESSOR) 25 MG tabletIndications:Chr onic heart failure with preserved ejection fraction (HFpEF) ([facility] HHS/HCC) Take 0.5 tablets (12.5 mg total) by mouth 2 (two) times daily. 90 tablet 3 07/31/2022 4 omeprazole (PRILOSEC) 20 MG capsuleIndications:GE RD (gastroesophageal reflux disease) Take 1 capsule by mouth once daily 90 capsule 1 02/07/2022 3 omeprazole (PRILOSEC) 20 MG capsuleIndications:GE RD (gastroesophageal reflux disease) Take 1 capsule by mouth once daily 90 capsule 08/28/2022 3 potassium chloride CR (K-TAB) 10 MEQ Tab CR tabletIndications:Hyp okalemia Take 1 tablet by mouth once daily 90 tablet 08/13/2022 3 venlafaxine XR (EFFEXOR-XR) 150 MG 24 hr capsuleIndications:Cu rrent mild episode of major depressive disorder without prior episode (CMS/HCC) Take 1 capsule (150 mg total) by mouth daily. 90 capsule 1 04/17/2022 3 warfarin (COUMADIN) 1 MG tabletIndications:Chr onic anticoagulation Take 1 tablet by mouth once daily 30 tablet 08/13/2022 3 warfarin (COUMADIN) 6 MG tabletIndications:Chr onic anticoagulation Take 1 tablet by mouth once daily 30 tablet 08/13/2022 3 documented as of this encounter Plan of Treatment Upcoming Encounters Date Type Department Care Team (Late st Contact Info) Description 04/14/2024 2:00 PM PIGMENT PRESSER Office Visit [facility] Medical Group Multispecialty Care - [facility] [address] [facility], [address] [place] [address] Julio Pulido MD 3 [place] [address] documented as of this encounter Goals Goal Patient Goal Type Associated Problems Recent Progress Patient-Stated? Author Health - patient able to perform ADLs independently General On track(2023 9:49 AM CDT) Dianne Corona, RN Note: 12/17/23: Patient stated she is independent with ASL's. Establish Plan for Symptom Monitoring-CHF General On track(2023 11:36 AM PIGMENT PRESSER) Dianne Corona, RN Note: Patient will recognize [...] Symptom Monitoring-COPD General On track(2023 11:36 AM PIGMENT PRESSER) Dianne Corona RN Note: Patient will recognize [...] Symptom Monitoring-DM General On track(2023 4:33 PM PIGMENT PRESSER) Dianne Corona, RN Note: Patient will manage [...] Symptom Monitoring-HTN General On track(2023 4:33 PM PIGMENT PRESSER) Dianne Corona, RN Note: Patient will monitor [...] as of this encounter Care Teams Traffic Superintendent Relationship Specialty Start Date End Date Sanjeev Webster DO [address] [place] [address] PCP - General FAMILY PRACTICE 09/25/20 Dianne Johnson, RN [facility] [place] [address] Traveling Buyer (Ambulatory) REGISTERED NURSE 08/14/20 documented as of this encounter
--- OUTSIDE RECORDS SUMMARY | 2024-03-15 00:59 | XMS_ITS | Encounter Summary ---
Author Organization [facility] Address [address] [place] [address] [place] [address] Care Team Providers Care Vallez Filter Operator Name Role Phone Dianne Johnson RN Unavailable [phone] Sanjeev Webster DO Primary Care Provider + Encounter Details Date Type Department Care Team (Latest Contact Info) Description 06/25/2022 Travel Social History Tobacco Use Types Packs/Day [...] slept in a correction (including now)? No 04/03/2022 Comments No Sex [...] Author Status No 11/05/2021 7:00 PM CDT Vidmar, Stephanie A, R N Active documented in this encounter Plan of Treatment Upcoming Encounters Date Type Department Care Team (Late st Contact Info) Description 04/14/2024 2:00 PM SCREENER PERFUMER Office Visit [facility] Medical Group Multispecialty Care - [facility] [address] [facility], [address] [place] [address] Julio Pulido MD 3 [place] [address] documented as of this encounter Goals Goal Patient Goal Type Associated Problems Recent Progress Patient-Stated? Author Health - patient able to perform ADLs independently General On track(2023 9:49 AM CDT) Dianne Corona, RN Note: 12/17/23: Patient stated she is independent with ASL's. Establish Plan for Symptom Monitoring-CHF General On track(2023 11:36 AM SCREENER PERFUMER) Dianne Corona, RN Note: Patient will recognize [...] Symptom Monitoring-COPD General On track(2023 11:36 AM SCREENER PERFUMER) Dianne Corona, RN Note: Patient will recognize [...] Symptom Monitoring-DM General On track(2023 4:33 PM SCREENER PERFUMER) Dianne Corona, RN Note: Patient will manage [...] Symptom Monitoring-HTN General On track(2023 4:33 PM SCREENER PERFUMER) Dianne Corona, RN Note: Patient will monitor [...] documented as of this encounter Care Teams Vallez Filter Operator Relationship Specialty Start Date End Date Sanjeev Webster DO [address] [place] [address] PCP - General FAMILY PRACTICE 09/25/20 Dianne Johnson, RN [address] [place] [address] Cigarette Seller (Ambulatory) REGISTERED NURSE 08/14/20 documented as of this encounter
--- OUTSIDE RECORDS SUMMARY | 2024-03-15 00:59 | XMS_ITS | Encounter Summary ---
Author Organization [facility] Address [address] [place] [address] [place] [address] Care Team Providers Care Manager Six Sigma Name Role Phone Casey Johnson RN Unavailable [phone] Sanjeev Webster DO Primary Care Provider + Reason for Visit * Reason Onset Date Comments Care Management 08/21/2022 Encounter Details Date Type Department Care Team (Late st Contact Info) Description 08/21/2022 Patient Outreach [facility] Family & Internal Medicine [address] [address] Casey Johnson, RN [address] [place] [address] Care Management Social History Tobacco Use Types Packs/Day Years Used Date Smoking Tobacco: Never Passive Smoke Exposure: Past Smokeless Tobacco: Never Comments:non smoker Alcohol Use Standard Drinks/Week Comments Not Currently 0 (1 standard drink = 0.6 oz pur e alcohol) Overall Financial Resource Strain (CARDIA) Monishae r Date Recorded How hard is it for you to pa y for the very basics like food, housing, medical care, and heating? Hard 04/03/2022 PHQ-2 Answer Date Recorded Patient Health Questionnaire-2 Score 3 07/08/2022 Hunger Vital Sign Answer Date Recorded Within [...] slept in a usp (including now)? No 04/03/2022 Comments No Sex [...] in this encounter Progress Notes * Casey Johnson, RN - 08/21/2022 2:06 PM CDT Chronic Care Management: Patient Status: Contacted patient today. She answered the call and stated she is at a . CC will call back next week. Plan of Care: title coordinator will continue to follow up by [...] 03/31/2023 (Originally 02/19/2016) COVID-19 Vaccine (5 - Booster for Pfizer series) 03/31/2023 (Originally 10/24/2021) Hemoglobin A1C 01/07/2023 Diabetes: Retinopathy Eye Exam 04/21/2024 DTaP, Tdap and Td Vaccines (4 - Td or Tdap) 09/05/2030 DEXA SCAN (GENERAL) Completed Pneumococcal Vaccine: 65+ Years Completed Hepatitis C Completed Meningococcal Vaccine Aged Out Problem List: Patient Active Problem List Diagnosis Abnormal stress test Chronic anticoagulation Coronary artery disease involving [place] coronary artery of [place] heart without angina pectoris Dyspnea on exertion [...] of thoracic vertebra (CMS/HCC) Depression Diabetic polyneuropathy ([facility]) Disorder of rotator cuff Diverticular disease Dysphagia Elevated troponin Gastroesophageal reflux disease without esophagitis Hyperlipidemia, unspecified hyperlipidemia type Vascular dementia ([facility]) Unknown and unspecified causes of morbidity Syncope, unspecified syncope type Senile purpura ([facility]) Wrist joint pain Respiratory illness Requires lifelong warfarin therapy Secondary hyperparathyroidism ([facility]) Presence of prosthetic heart valve Plantar fascial fibromatosis Peripheral neuropathy Parathyroid adenoma Polymyalgia rheumatica ([facility]) Osteoporosis Numbness Muscle cramps Closed stable burst fracture of sixth thoracic vertebra, initial encounter ([facility]) Chest pain Contusion of scalp Knee pain Localized, primary osteoarthritis Osteoarthritis of knee Traumatic closed displaced fracture of distal end of radius Shoulder joint pain Hyperlipidemia associated with type 2 diabetes mellitus ([facility]) PVD (peripheral vascular disease) ([facility]) Hematoma Anxiety Diastolic heart failure ([facility]) Internal hemorrhoids Leukoencephalopathy Major depression single episode, in partial remission ([facility]) Metacarpal bone fracture Mitral valve disorder Purpura ([facility]) Peripheral arterial occlusive disease ([facility]) Primary osteoarthritis involving multiple joints Vision loss COPD (chronic obstructive pulmonary disease) ([facility]) Diarrhea Drug-induced constipation H/O mechanical aortic valve replacement Age-related osteoporosis with current pathological fracture Care Management Physical deconditioning Chronic heart failure with preserved ejection fraction (HFpEF) ([facility]) Paroxysmal atrial fibrillation ([facility]) Hypertension associated with type 2 diabetes mellitus ([facility]) Encounter for prophylactic measures, unspecified Graves' disease Cirrhosis of liver without ascites, unspecified hepatic cirrhosis type ([facility]) Stage 3b chronic kidney disease ([facility]) Medications: Current Outpatient Medications Medication Sig Dispense [...] mg 60 mg Subcutaneous Once MD CASEY Christine, RN documented in this encounter Plan of Treatment Upcoming Encounters Date Type Department Care Team (Late st Contact Info) Description 04/14/2024 2:00 PM TEST CAR DRIVER Office Visit [facility] Medical [facility] Multispecialty Care - [address], [address] [place] [phone] Julio Pulido MD [address] [place] [phone] documented as of this encounter Goals Goal Patient Goal Type Associated Problems Recent Progress Patient-Stated? Author Health - patient able to perform ADLs independently General On track(2023 9:49 AM CDT) Casey Corona RN Note: 12/17/23: Patient stated she is independent with ASL's. Establish Plan for Symptom Monitoring-CHF General On track(2023 11:36 AM TEST CAR DRIVER) Casey Corona RN Note: Patient will [...] Symptom Monitoring-COPD General On track(2023 11:36 AM TEST CAR DRIVER) Casey Corona RN Note: Patient will [...] Symptom Monitoring-DM General On track(2023 4:33 PM TEST CAR DRIVER) Casey Corona RN Note: Patient will [...] Symptom Monitoring-HTN General On track(2023 4:33 PM TEST CAR DRIVER) No Casey Johnson, RN Note: Patient will [...] as of this encounter Care Teams Manager Six Sigma Relationship Specialty Start Date End Date Sanjeev Webster DO [address] [place] [id number] PCP - General FAMILY PRACTICE 09/25/20 Casey Johnson, RN [address] [place] [address] Medical Office Supervisor (Ambulatory) REGISTERED NURSE 08/14/20 documented as of this encounter
--- OUTSIDE RECORDS SUMMARY | 2024-03-15 00:59 | XMS_ITS | Encounter Summary ---
Author Organization [facility] Address [address] [address] [place] [address] Care Team Providers Care Detective Chief Name Role Phone Dianne Johnson RN Unavailable [phone] Sanjeev Webster DO Primary Care Provider + Encounter Details Date Type Department Care Team (Late st Contact Info) Description 08/27/2022 Patient Outreach [facility] Medical Group Family & Internal Medicine [address] [address] Dianne Johnson, RN [address] [place] [address] Social History Tobacco Use Types Packs/Day Years [...] Recorded Patient Health Questionnaire-2 Score 3 07/08/2022 [facility] - [...] Progress Notes * Dianne Johnson RN - 08/27/2022 7:42 AM CDT Admitted to [facility] from ED on 08/26/22 for OLIVE. Care coordination team will complete TCM call back whenD/C. Thank you. documented in this encounter Plan of Treatment Upcoming Encounters Date Type Department Care Team (Late st Contact Info) Description 04/14/2024 2:00 PM TURN DOWN MAN Office Visit [facility] Medical Group Multispecialty Care - [facility] [address], [address] [place] [address] Julio Pulido MD [address] [place] [address] documented as of this encounter Goals Goal Patient Goal Type Associated Problems Recent Progress Patient-Stated? Author Health - patient able to perform ADLs independently General On track(2023 9:49 AM CDT) Dianne Corona RN Note: 12/17/23: Patient stated she is independent with ASL's. Establish Plan for Symptom Monitoring-CHF General On track(2023 11:36 AM TURN DOWN MAN) Dianne Corona RN Note: Patient will recognize [...] Symptom Monitoring-COPD General On track(2023 11:36 AM TURN DOWN MAN) Dianne Corona RN Note: Patient will recognize [...] Symptom Monitoring-DM General On track(2023 4:33 PM TURN DOWN MAN) Dianne Corona RN Note: Patient will manage [...] Symptom Monitoring-HTN General On track(2023 4:33 PM TURN DOWN MAN) Dianne Corona RN Note: Patient will monitor [...] documented as of this encounter Care Teams Detective Chief Relationship Specialty Start Date End Date Sanjeev Webster DO [address] [place] [id number] PCP - General FAMILY PRACTICE 09/25/20 Dianne Johnson, RN [address] [place] [address] Power Line Installer (Ambulatory) REGISTERED NURSE 08/14/20 documented as of this encounter
--- OUTSIDE RECORDS SUMMARY | 2024-03-15 00:59 | XMS_ITS | Encounter Summary ---
Author Organization [facility] Address [facility] access hospital[address] [facility] [place] [place] [address] [place] [address] Care Team Providers Care Wool Cleaner Name Role Phone Dianne Johnson RN Unavailable [phone] Sanjeev Webster DO Primary Care Provider + Reason for Visit * Reason Comments Congestion Since sat Earache Cough Sore Throat Encounter Details Date Type Department Care Team (Late st Contact Info) Description 08/26/2022 2:00 PM CDT Office Visit [facility] Medical [facility] Family & Internal Medicine [address] [phone] Sanjeev Webster DO [address] [place] [address] Congestion (Since sat); Earache; Cough; Sore Throat Social History Tobacco Use Types Packs/Day Years [...] Patient Health Questionnaire-2 Score 3 07/08/2022 [facility] - Occupational Stress Questionnaire Answer Date [...] Sign Reading Time Taken Comments Blood Pressure 85/60 08/26/2022 2:45 PM CDT Pulse 60 08/26/2022 2:02 PM CDT Temperature 36.4 ??C (97.6 ??F) 08/26/2022 2:02 PM CD T Respiratory Rate - - Oxygen Saturation 98% 08/26/2022 2:02 PM CDT Inhaled Oxygen Concentration - - Weight 80.3 kg (177 lb) 08/26/2022 2:02 PM CDT Height 165.1 cm (5' 5 ) 08/26/2022 2:02 PM CDT Body Mass Index 29.45 08/26/2022 2:02 PM CDT documented in this encounter Functional Status * Question Answer [...] office or shopping? No 08/26/2022 7:46 PM CDT Indiana Gunderson RN Act julien * RETIRED [...] Progress Notes * Mike Brown RN - 08/26/2022 2:00 PM CDTAddended by: MIKE BROWN on: 08/26/2022 04:37 PM Modules accepted: Orders * Sanjeev Webster, - 08/26/2022 2:00 PM CDT Images from the original note were not included. GENERAL OFFICE VISIT Encounter Date: 08/26/2022 Chief Complaint: 77-year-old female presents for Congestion (Since sat), Earache, Cough, and Sore Throat HPI: Patient states symptoms have been present for 3 days. Symptoms include ear pain, sore throat, cough, SOB, and congestion. Pertinent negatives include Fevers, Chills, and Myalgias. Patient has no sickcontacts. Pt's BP is notably decreased today. Pt has known COPD based upon previous PFT from 02/17/2020. Review of Systems Constitutional: Negative for fever. HENT: Positive for sore throat. See HPI Respiratory: See HPI Patient Active Problem List Diagnosis Abnormal stress test Chronic anticoagulation Coronary artery disease involving [place] coronary artery of [place]inee heart without angina pectoris Dyspnea on exertion [...] Parathyroid adenoma Polymyalgia rheumatica ([facility]) Osteoporosis Numbness Muscle cramps Closed stable burst fracture of sixth thoracic vertebra, initial encounter ([facility]) Chest pain Contusion of scalp Knee pain Localized, primary osteoarthritis Osteoarthritis of knee Traumatic closed displaced fracture of distal end of radius Shoulder joint pain Hyperlipidemia associated with type 2 diabetes mellitus ([facility]) PVD (peripheral vascular disease) ([facility]) Hematoma Anxiety Diastolic heart failure ([facility]) Internal hemorrhoids Leukoencephalopathy Major depression single episode, in partial remission ([facility]) Metacarpal bone fracture Mitral valve disorder Purpura ([facility]) Peripheral arterial occlusive disease ([facility]) Primary osteoarthritis involving multiple joints Vision loss COPD (chronic obstructive pulmonary disease) ([facility]) Diarrhea Drug-induced constipation H/O mechanical aortic valve replacement Age-related osteoporosis with current pathological fracture Care Management Physical deconditioning Chronic heart failure with preserved ejection fraction (HFpEF) ([facility]) Paroxysmal atrial fibrillation ([facility]) Hypertension associated with type 2 diabetes mellitus ([facility]) Encounter for prophylactic measures, unspecified Graves' disease Cirrhosis of liver without ascites, unspecified hepatic cirrhosis type ([facility]) Stage 3b chronic kidney disease ([facility]) 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 Anxiety Atrial fibrillation with rapid ventricular response ([facility]) 08/22/2020 Atrial flutter ([facility]) Cataract Chronic anticoagulation due to mechanical heart valve Chronic pain Diabetes mellitus ([facility]) H/O mechanical aortic valve replacement 2003 Hypertension Kidney stone 02/03/2017 On amiodarone therapy 05/21/2021 Past Surgical History: Procedure Laterality Date REPAIR HEART WOUND Family History Problem Relation Name Age of Onset Heart Father Diabetes Father Heart Mother Social History Socioeconomic History Marital status: Spouse name: Not on file Number of children: Not on file Years of education: Not on file Highest education level: Not on file Occupational History Not on file Tobacco Use Smoking status: Never Passive exposure: Past Smokeless tobacco: Never Tobacco comments: non smoker Vaping Use Vaping Use: Never used Substance and Sexual Activity Alcohol use: Not Currently Drug use: Yes Types: Hydrocodone Comment: chronic pain Sexual activity: Not on file Other Topics Concern Not on file Social History Narrative Not on file Social [...] Lack of Transportation (Non-Medical): No Physical Activity: Not on file Stress: Not on file Social Connections: Not on file Intimate Partner Violence: Not on file Housing Stability: Low Risk Unable to Pay [...] (Pneumovax 23) 03/30/2017 Pneumococcal (Prevnar 13) 06/15/2015 Td 07/22/2014 Td (Generic) 07/22/2014 Td (TDVAX) 07/22/2014 Tdap (Boostrix) 09/05/2020 Tdap (Generic) 06/05/2016, 09/05/2020 Tetanus/Diptheria 07/22/2014 Zoster (Zostavax) [address] Unt/0.65Ml 12/25/2015 Current Outpatient Medications Medication Sig [...] 60 mg Subcutaneous Once Panda Moreno MD Current Outpatient Medications on [...] tablet (80 mg total) by mouth daily. gabapentin (NEURONTIN) 300 MG capsule Take 1 capsule (300 mg total) by mouth 3 (three) times daily. HYDROcodone-acetaminophen (NORCO) 10-325 MG tablet Take 1 tablet by mouth every 6 (six) hours as needed for Pain. Indications: Chronic Pain Do not take with alprazolam. iron polysaccharides (NIFEREX) 150 MG capsule Take 1 capsule (150 mg total) by mouth daily. lisinopril (PRINIVIL) 20 MG tablet Take 1 tablet by mouth once daily methIMAzole (TAPAZOLE) 10 MG tablet Take 1 tablet by mouth once daily metoprolol tartrate (LOPRESSOR) 25 MG tablet Take [...] Take 1 tablet by mouth once daily Current Facility-Administered Medications on File Prior to [...] Pain Cramping in legs Objective: Filed Vitals: 08/26/22 1402 08/26/22 1445 BP: (!) 72/44 (!) 85/60 Pulse: 60 Temp: 97.6 ??F (36.4 ??C) SpO2: 98% Weight: 80.3 kg (177 lb) Height: 5' 5 (1.651 m) Physical [...] rash. Neurological: Mental Status: She is alert. Comments: Spacing out during conversation occasionally, but otherwise stable Psychiatric: Mood and Affect: Mood and affect normal. Assessment & Plan: Radha was seen today for congestion, earache, cough and sore throat. Diagnoses and all orders for this visit: Shortness of breath Chronic obstructive pulmonary disease, unspecified COPD type (CMS/HCC) Hypotension, unspecified hypotension type Discussion/Summary: Swabs are all negative today. Given hypotension today and acute symptoms, concerning for early SIRS/sepsis. Discussed risks and benefits of treatment, and pt will go to ER. Report called [facility] to [facility] ER by Mike Brown RN. Will have pt f/u depending upon results of ER evaluation. I personally spent a total of 36 minutes on the day of the encounter. This includes uhtl-vw-dhvh and eea-hysa-jy-face time I provided on the day of the encounter & excludes time spent performing separately reportable services. Sanjeev Webster DO documented in this encounter Plan of Treatment Upcoming Encounters Date Type Department Care Team (Late Contact Info) Description 04/14/2024 2:00 PM FARM TRACTOR MECHANIC Office Visit [facility] Medical Group Multispecialty Care [facility] [address] [facility], [address] [place] [phone] Julio Pulido MD [address] [place] [address] documented as of this encounter Goals Goal Patient Goal Type Associated Problems Recent Progress Patient-Stated? Author Health - patient able to perform ADLs independently General On track(2023 9:49 AM CDT) Dianne Corona RN Note: 12/17/23: Patient stated she is independent with ASL's. Establish Plan for Symptom Monitoring-CHF General On track(2023 11:36 AM FARM TRACTOR MECHANIC) Dianne Corona RN Note: Patient will [...] Symptom Monitoring-COPD General On track(2023 11:36 AM FARM TRACTOR MECHANIC) Dianne Corona RN Note: Patient will [...] Symptom Monitoring-DM General On track(2023 4:33 PM FARM TRACTOR MECHANIC) Dianne Corona RN Note: Patient will [...] Symptom Monitoring-HTN General On track(2023 4:33 PM FARM TRACTOR MECHANIC) Dianne Corona RN Note: Patient will monitor B/P several times per week , record readings and report to physician or CC if B/P consistently >130/80 Take your medications as prescribed. Follow up with your provider as scheduled. Take your blood pressure at least several times a week if able. documented as of this encounter Procedures Procedure Name Priority Date/Time Associated Diagnosis Comments CULTURE STREP A Routine 08/26/2022 4:15 PM CDT Nasal sinus congestion CORONAVIRUS (COVID 19) PCR Routine 08/26/2022 4:15 PM CDT Nasal sinus congestion Acute cough CORONAVIRUS (COVID-19) INFLUENZA A & B ANTIGEN IA PANEL Routine 08/26/2022 Nasal sinus congestion Acute cough RAPID STREP A Routine 08/26/2022 Nasal sinus congestion PROTHROMBIN TIME, FINGERSTICK Routine 08/26/2022 Current use of anticoagulant therapy documented in this encounter Results * CORONAVIRUS (COVID 19) PCR (08/26/2022 4:15 PM CDT) SPEC DESCRIPTION NASAL 08/27/19 4:15 PM CDT [facility] CORONAVIRUS SARS COV 2 PCR (RESP) NEGATIVE NEGATIVE 08/27/2022 3:04 PM CDT [facility] Comment: THE SARS-CoV-2 TEST HAS BEEN AUTHORIZED BY THE FDA UNDER AN EUA FOR USE BY AUTHORIZED LABORATORIES. PERFORMED BY NUCLEIC ACID AMPLIFICATION PCR NASOPHARYNGEAL SWAB / Unknown 08/26/2022 4:15 PM CDT Sanjeev Webster DO MICROBIOLOGY - GENERAL O RDERABLES Final Result [facility] [address] [place] [address], [place] [phone] * CULTURE STREP A (MG/SJS/SMD Only) (08/26/2022 4:15 PM CDT) THROAT CULTURE STREP A ONLY Negative for Group A Streptococci Negative for Group A Streptococci 08/27/2022 7:30 PM CDT [facility] STRUCTURE OF ANTERIOR PORTION OF NECK / Unknown 08/26/2022 4:15 PM CDT Sanjeev Webster DO MICROBIOLOGY - GENERAL O RDERABLES Final Result [facility] [address] [place] [address], [place] [phone] * PROTIME/INR, FINGERSTICK (08/26/2022) INR WHOLE BLOOD 2.40 [facility] 08/26/2022 us Sanjeev Webster DO LABORATORY Final Re sult [facility] [address] [place] [address], [place] * CORONAVIRUS (COVID-19) INFLUENZA A & B ANTIGEN IA PANEL (08/26/2022) CORONAVIRUS ANTIGEN IA NEGATIVE NEGATIVE [facility] INFLUENZA A NEGATIVE NEGATIVE [facility] INFLUENZA B NEGATIVE NEGATIVE [facility] Internal Control: VALID VALID [facility] NASAL STRUCTURE / Unknown 08/26/2022 us Sanjeev Webster DO MICROBIOLOGY - GENERAL O RDERABLES Final Result Performing Organization Address [facility]/[place] [address], * RAPID STREP A (08/26/2022) RAPID STREP TEST NEGATIVE NEGATIVE [facility] Internal Control: VALID VALID [facility] STRUCTURE OF ANTERIOR PORTION OF NECK / Unknown 08/26/2022 us Sanjeev Webster DO MICROBIOLOGY - GENERAL O RDERABLES Final Result Performing Organization Address [facility] Co de Phone Number [address] documented in this encounter Visit Diagnoses Diagnosis Shortness of breath- Primary Chronic obstructive pulmonary disease, unspecified COPD type ([facility]) Hypotension, unspecified hypotension type Nasal sinus congestion Other diseases of nasal cavity and sinuses Upper respiratory symptom Acute cough Encounter for long-term (current) drug use Encounter for long-term (current) use of other medications Current use of anticoagulant therapy documented in this encounter Additional Health Concerns Infection Onset Date Last Indicated Resolved Time COVID-19 Rule Out 08/26/2022 08/26/2022 08/26/2022 4:56 PM CDT Assessment Noted Time PHQ-9 Depression Total Score: 3 12/24/19 22 11:48 AM CDT documented as of this encounter Care Teams Wool Cleaner Relationship Specialty Start Date End Date Sanjeev Webster DO [address] [place] [address] PCP - General FAMILY PRACTICE 09/25/20 Dianne Johnson, RN [address] [place], [place] [phone] Assistant Manager Retail (Ambulatory) REGISTERED NURSE 08/14/20 documented as of this encounter
--- OUTSIDE RECORDS SUMMARY | 2024-03-15 00:59 | XMS_ITS | Encounter Summary ---
Author Organization [facility] Address [address] [place] [address] [place] [address] Care Team Providers Care Contract Project Manager Name Role Phone Casey Johnson RN Unavailable Sanjeev Webster DO Primary Care Provider + Reason for Visit * Reason Onset Date Comments Care Management 06/24/2022 Encounter Details Date Type Department Care Team (Late st Contact Info) Description 06/24/2022 Patient Outreach [facility] Family & Internal Medicine [address] [id number] Casey Johnson, RN [address] [place] [address] Care Management Social History Tobacco Use Types Packs/Day Years Used Date Smoking Tobacco: Never Passive Smoke Exposure: Past Smokeless Tobacco: Never Comments:non smoker Alcohol Use Standard Drinks/Week Comments Not Currently 0 (1 standard drink = 0.6 oz pur e alcohol) Overall Financial Resource Strain (CARDIA) Monisahe r Date Recorded How hard is it [...] slept in a residential (including now)? No 04/03/2022 Comments No Sex [...] Progress Notes * Casey Johnson RN - 06/24/2022 1:28 PM CDT Chronic Care Management: 06/24/22: Attempted to contact patient without a response and unable to leave a message. 06/24/22: Patient returned phone call. See below for details. Patient concerns or urgent matters that need addressed: 1.Patient c/o incontinence of BM 2 to 3 times per day. Stated BM is soft and black in color since she started the new iron pill. Reports stools black when she was on other iron pill. Stated when she passes gas it's horrible. 2. Patient c/o bilateral leg cramps at night. Of note, she is taking Rosuvastatin 5 mg at hs. In the past patient was taking Atorvastatin and it caused leg pain/cramps. Resolved after stopping. See drug intolerance under allergies noted 08/12/21. 3. Last INR done 04/25/22. INR: 2.7. Patient is past due for a PT/INR. Stated she can come in tomorrow after 1:00 PM. Please call her to set up appointment. 4. Patient requesting refill for albuterol inhaler sent to [facility] pharmacy. 5. FYI: Patient c/o sob and dizziness yesterday stated for the first time. Stated she wasn't eating right yesterday and after she ate she felt better. She is not checking her BG. She walked some today and felt pretty good. Denies swelling, sob or dizziness today. The above message sent to nursing team. Patient Status: Contacted patient today. She is a very pleasant 77 year old. Patient no showed appointment with yesterday and she is past due for PT/INR. Patient stated her car wasn't working yesterday and her son had to fix it. She has her car back today and can come in tomorrow for PT/INR after 1:00PM if office has an availability. Message sent to 's nursing team. Patient denies any issues with CHF or COPD exacerbation s/s at present. Encouraged to call at the onset of any changes. Patient verbalizes understanding. Plan of Care: program proposals coordinator will continue to follow up by [...] Future Appointments Date Time Provider Department Center 06/25/2022 2:00 PM MG TRINH NURSE [facility] 07/07/2022 10:40 AM Sanjeev Webster, [facility] 09/12/2022 11:00 AM Panda Moreno MD [facility] Quality care gaps: Health Maintenance Topic Date Due Kidney Health Evaluation Never done Annual Medicare Wellness Visit Never done Hemoglobin A1C 07/13/2022 Zoster Vaccines (1 of 2) 03/31/2023 (Originally 02/19/2016) COVID-19 Vaccine (5 - Booster for Pfizer series) 03/31/2023 (Originally 10/24/2021) Lipid Panel 08/29/2022 Diabetes: Retinopathy Eye Exam 04/21/2024 DTaP, Tdap and Td Vaccines (4 - Td or Tdap) 09/05/2030 DEXA SCAN (GENERAL) Completed Pneumococcal Vaccine: 65+ Years Completed Hepatitis C Completed Meningococcal Vaccine Aged Out Problem List: Patient Active Problem List Diagnosis Abnormal stress test Chronic anticoagulation Coronary artery disease involving [place] coronary artery of [place] heart without angina pectoris Dyspnea on exertion H/O mechanical aortic valve replacement Hypertensive heart disease with congestive heart failure (CMS/HCC) LBBB (left bundle branch block) Myopathy VAZQUEZ (obstructive sleep apnea) Paroxysmal atrial flutter (CMS/HCC) Benign hypertension with CKD (chronic kidney disease) stage III (CMS/HCC) Kidney dysfunction Memory deficits Hearing deficit, bilateral History of [...] thoracic vertebra, initial encounter ([facility]/HCC) Atrial fibrillation with rapid ventricular response (CMS/HCC) Chest pain Contusion of scalp Knee pain Localized, primary osteoarthritis Osteoarthritis of knee Traumatic closed displaced fracture of distal end of radius Shoulder joint pain Hyperlipidemia associated with type 2 diabetes mellitus (CMS/HCC) PVD (peripheral vascular disease) (CMS/HCC) Hematoma Anxiety Diastolic heart failure (CMS/HCC) Internal hemorrhoids Kidney stone Leukoencephalopathy Major depression single episode, in partial remission (CMS/HCC) Metacarpal bone fracture Mitral valve disorder Purpura (CMS/HCC) Peripheral arterial occlusive disease (CMS/HCC) Primary osteoarthritis involving multiple joints Vision loss COPD (chronic obstructive pulmonary disease) ([facility]) Diarrhea Drug-induced constipation H/O mechanical aortic valve replacement On amiodarone therapy Age-related osteoporosis with current pathological fracture Care Management OLIVE (acute kidney injury) ([facility]) Physical deconditioning Chronic heart failure with preserved ejection fraction (HFpEF) ([facility] Paroxysmal atrial fibrillation ([facility] Hypertension associated with type 2 diabetes mellitus ([facility]) Encounter for prophylactic measures, unspecified Medications: Current Outpatient Medications Medication Sig Dispense [...] total) by mouth 2 (two) times daily. 60 tablet 3 omeprazole (PRILOSEC) 20 MG capsule Take 1 capsule by mouth once daily 90 capsule 1 oxybutynin XL (DITROPAN-XL) 5 MG 24 hr tablet Take 1 tablet (5 mg total) by mouth daily. 30 tablet 2 potassium chloride CR (K-TAB) 10 MEQ Tab CR tablet Take 1 tablet by mouth once daily 90 tablet 1 rosuvastatin (CRESTOR) 5 MG tablet TAKE 1 TABLET BY MOUTH NIGHTLY AT BEDTIME 90 tablet 0 venlafaxine XR (EFFEXOR-XR) 150 [...] with Patient Time spent with patient (minutes): 11 Time spent performing chart review (minutes): 8 Total time (minutes): 19 CASEY JOHNSON RN I reviewed the patient's status and education provided by CASEY JOHNSON RN. I agree with the findings and recommendations made. Cosigned by Sanjeev Webster DO at 06/25/2022 1:09 PM CDT documented in this encounter Plan of Treatment Upcoming Encounters Date Type Department Care Team (Late st Contact Info) Description 04/14/2024 2:00 PM IRON CASTER Office Visit [facility] Multispecialty Care - [address], [address] [place] [phone] Julio Pulido MD [address] [place] [id number] documented as of this encounter Goals Goal Patient Goal Type Associated Problems Recent Progress Patient-Stated? Author Health - patient able to perform ADLs independently General On track(2023 9:49 AM CDT) Casey Corona RN Note: 12/17/23: Patient stated she is independent with ASL's. Establish Plan for Symptom Monitoring-CHF General On track(2023 11:36 AM IRON CASTER) Casey Corona RN Note: Patient will recognize [...] Symptom Monitoring-COPD General On track(2023 11:36 AM IRON CASTER) Casey Corona RN Note: Patient will recognize [...] Symptom Monitoring-DM General On track(2023 4:33 PM IRON CASTER) Casey Corona RN Note: Patient will manage [...] Symptom Monitoring-HTN General On track(2023 4:33 PM IRON CASTER) Casey Corona RN Note: Patient will monitor B/P several times per week , record readings and report to physician or CC if B/P consistently >130/80 Take your medications as prescribed. Follow up with your provider as scheduled. Take your blood pressure at least several times a week if able. documented as of this encounter Visit Diagnoses Diagnosis COPD (chronic obstructive pulmonary disease) ([facility])- Primary Chronic airway obstruction, not elsewhere classified Chronic diastolic heart failure ([facility]) Chronic diastolic heart failure documented in this encounter Additional Health Concerns Assessment Noted Time PHQ-9 Depression Total Score: 3 12/24/19 22 11:48 AM CDT documented as of this encounter Care Teams Contract Project Manager Relationship Specialty Start Date End Date Sanjeev Webster DO [address] [place] [id number] PCP - General FAMILY PRACTICE 09/25/20 Casey Johnson RN [address] [place] [address] Lens Grinder (Ambulatory) REGISTERED NURSE 08/14/20 documented as of this encounter
--- OUTSIDE RECORDS SUMMARY | 2024-03-15 00:59 | XMS_ITS | Encounter Summary ---
Author Organization [facility] Address [facility] [place] [address] [place] [address] Care Team Providers Care Temperature Logging Operator Name Role Phone Dianne Johnson RN Unavailable [phone] Sanjeev Webster DO Primary Care Provider + Reason for Visit * Reason Onset Date Comments Advise 08/28/2022 Encounter Details Date Type Department Care Team (Late st Contact Info) Description 08/28/2022 Telephone [facility] Home Care [address] [place] [address] [place] [address] Sanjeev Webster DO [facility] [place] [address] Advise Social History Tobacco Use Types Packs/Day Years [...] Recorded Patient Health Questionnaire-2 Score 6 12/11/2022 [facility] of Occupat ional [...] Progress Notes * Latha Ring MA - 08/29/2022 1:51 PM CDT Yes, Dr. Webster is willing sign and follow. Thank you, Latha * Eliane Samuel - 08/28/2022 2:53 PM CDT [facility] Home Health has received a referral on Radha from [facility] where she is currently admitted. We will accept. At this time, we have a delay in start of care but will get her on our schedule sooner if we are able. Is Dr Webster willing to follow and sign for her home care? If you have any questions or concerns, please let us know. Thank you Eliane TejedaTool And Die Assembler documented in this encounter Plan of Treatment Upcoming Encounters Date Type Department Care Team (Late st Contact Info) Description 04/14/2024 2:00 PM AUTO SELF SERVICE STATION ATTENDANT Office Visit [facility] Multispecialty Care - [facility] [address], [address] [place] [phone] Julio Pulido MD [address] [place] [address] documented as of this encounter Goals Goal Patient Goal Type Associated Problems Recent Progress Patient-Stated? Author Health - patient able to perform ADLs independently General On track(2023 9:49 AM CDT) Dianne Corona RN Note: 12/17/23: Patient stated she is independent with ASL's. Establish Plan for Symptom Monitoring-CHF General On track(2023 11:36 AM AUTO SELF SERVICE STATION ATTENDANT) Dianne Corona RN Note: Patient will [...] Monitoring-COPD General On track(2023 11:36 AM AUTO SELF SERVICE STATION ATTENDANT) Dianne Corona RN Note: Patient will [...] Monitoring-DM General On track(2023 4:33 PM AUTO SELF SERVICE STATION ATTENDANT) Dianne Corona RN Note: Patient will [...] Monitoring-HTN General On track(2023 4:33 PM AUTO SELF SERVICE STATION ATTENDANT) Dianne Corona, RN Note: Patient will [...] documented as of this encounter Care Teams Temperature Logging Operator Relationship Specialty Start Date End Date Sanjeev Webster DO [address] [place] [id number] PCP - General FAMILY PRACTICE 09/25/20 Dianne Johnson, RN [address] [place], [place] [phone] Facilities Painter (Ambulatory) REGISTERED NURSE 08/14/20 documented as of this encounter
--- OUTSIDE RECORDS SUMMARY | 2024-03-15 00:59 | XMS_ITS | Encounter Summary ---
Author Organization [facility] Address [facility] [place] [address] [place] [address] Care Team Providers Care Student Affairs Vice President Name Role Phone Dianne Johnson RN Unavailable [phone] Sanjeev Webster DO Primary Care Provider + Reason for Referral * (Routine) - Canceled Specialty Diagnoses / Procedures Referred By Contac t Referred To Contact Procedures PT eval and treat Jose Villa MD [address] [address] Phone: tel: fax: Referral ID Status Reason Start Date Expiration Date V isits Requested Visits Authorized [id number] Canceled 08/26/2022 08/27/2023 1 1 Reason for Visit * Reason Comments Weakness Hypotension Cough * Auth/Cert (Routine) Specialty Diagnoses / Procedures Referred By Contivett t Referred To Contact Diagnoses Orthostatic hypotension Acute kidney injury (CMS/HCC) Acute cystitis without hematuria Pneumonia due to infectious organism, unspecified laterality, unspecified part of lung OLIVE (acute kidney injury) (CMS/HCC) OLIVE (acute kidney injury) (CMS/HCC) Procedures NONE Jose Villa MD [address] [facility] [address] [place] [address] Phone: tel: fax: Referral ID Status Reason Start Date Expiration Date Visits Re quested Visits Authorized [id number] 1 1 Encounter Details Date Type Department Care Team (Late st Contact Info) Description 08/26/2022 4:01 PM CDT - 08/29/2022 12:31 PM CDT Hospital Encounter 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 or temple services? More than 4 times [...] Recorded Patient Health Questionnaire-2 Score 3 07/08/2022 [facility] [...] Sign Reading Time Taken Comments Blood Pressure 128/64 08/29/2022 8:52 AM CDT Pulse 77 08/29/2022 8:52 AM CDT Temperature 37 ??C (98.6 ??F) 08/29/2022 8:48 AM CDT Respiratory Rate 18 08/29/2022 8:52 AM CDT Oxygen Saturation 97% 08/29/2022 8:52 AM CDT Inhaled Oxygen Concentration - - Weight 88.3 kg (194 lb 10.7 oz) 08/29/2022 3:55 AM CDT Height 165.1 cm (5' 5 ) 08/26/2022 7:30 PM CDT Body Mass Index 32.39 08/26/2022 7:30 PM CDT documented in this encounter Functional [...] office or shopping? No 08/26/2022 7:46 PM [place] Call RN Act julien * Are you deaf or do you [...] or making decisions? No 08/26/2022 7:46 PM CD[place] Verdugo R N Active * Because of a physical, mental, or emotional condition, do you have serious difficulty concentrating, remembering, or making decisions? Answer Entry Date Author Status No 08/26/2022 7:46 PM [place] Call RN Active documented in this encounter Discharge Summaries * Lina Hurley, JIMBO - 08/29/2022 10:13 AM CDT Images from the original note were not included. Hospitalist Discharge Summary Patient ID: Ana Maria Bobo. female. 1945. Admit date: 08/26/2022 4:01 PM Discharge date and time: 08/29/22 Admitting Physician: Jose Villa MD Primary Care Physician: Sanjeev Webster, Discharge Physician: LINA HURLEY NP Discharge Diagnosis: orthostatic hypotension , olive Hospital Course: Ana Maria Bobo is a 77-year-old female who presents with weakness and dizziness . She has a past medical history of CHF, A fib, h/o MVR, anxiety, neuropathy, POALA, HTN, hyperthyroidism, and GERD.She presented as per recommendations of her primary care provider after found to have hypotension in the office 08/26. She reported for more than a month she has been intermittently dizzy with position changes. No recent diarrhea or vomiting. No recent fevers or chills. No dysuria, urgency or frequency. No change in home medication regimen. She has chronic intermittent dyspnea. She uses an inhalerfor this. On presentation she was found to be orthostatic, she was started on fluids and admitted to the hospital for further care. Chest x-ray showed atelectasis versus infiltrate, urinalysis was abnormal and sent for culture. She was treated with IVF, diuretics were held. OLIVE on presentation improved with hydration. Concerns for UTI or possible PNA on presentation, CXR suggestive of atelectasis, urine culture with polymicrobial growth. ABX were stopped. By 08/29 orthostatic hypotension resolved. She was discharged home on decreased dose of lasix. Recommended follow up with PCP and cardiology. Consults: Discharge Exam: Filed Vitals: 08/29/22 0355 08/29/22 0848 08/29/22 0849 08/29/22 0852 BP: 136/54 132/52 138/44 128/64 Pulse: 65 62 69 77 Resp: 20 18 20 18 Temp: 99.1 ??F (37.3 ??C) 98.6 ??F (37 ??C) TempSrc: Temporal Temporal SpO2: 95% 96% 97% Weight: 88.3 kg (194 lb 10.7 oz) Height: Physical Exam : GENERAL:??no acute distress, well nourished, well developed HEENT:?mucous membranes dry?? RESPIRATORY:?diminished??breath sounds, no wheezes, or crackles noted CARDIAC:?bradycardia, murmur, no peripheral edema GI: ??nontender, nondistended, bowel sounds present, no obvious masses MUSC: ??ROM grossly intact NEURO: ??. Alert, no gross deficit SKIN: ?No rashes , skin is warm and dry LYMPH: No obvious lymphadenopathy?? PSYCH: ??Alert, appropriate Code Status: Full Code Discharge Medications: Medication List CHANGE how you take these medications Morning Afternoon Evening Bedtime As Needed furosemide 80 MG tablet Commonly known as: LASIX Take 0.5 tablets (40 mg total) by mouth daily. Signed by: Lina Hurley NP What changed: how much to take CONTINUE taking these medications Morning Afternoon Evening Bedtime As Needed acetaminophen 500 MG tablet Commonly known as: TYLENOL Take 1 tablet (500 mg total) by mouth daily as needed. No more then 2500 mg per day. Last time this was given: 650 mg on August 28, 2022 10:10 AM albuterol sulfate HFA 108 (90 Base) MCG/ACT inhaler Inhale 2 puffs into the lungs every 6 (six) hours as needed for Wheezing. Signed by: Dr. Sanjeev Webster, DO ALPRAZolam 0.5 MG tablet Commonly known as: XANAX TAKE 1/2 (ONE-HALF) TABLET BY MOUTH NIGHTLY NEEDED FOR SLEEP Last time this was given: 0.25 mg on August 28, 2022 11:07 PM Signed by: Dr. Sanjeev Webster, DO gabapentin 300 MG capsule Commonly known as: NEURONTIN Take 1 capsule (300 mg total) by mouth 3 (three) times daily. Last time this was given: 300 mg on August 29, 2022 9:11 AM Signed by: Dr. Sanjeev Webster, DO HYDROcodone-acetaminophen 10-325 MG tablet Commonly known as: NORCO Take 1 tablet by mouth every 6 (six) hours as needed for Pain. Indications: Chronic Pain Do not take with alprazolam. Last time this was given: 1 tablet on August 29, 2022 9:11 AM Signed by: Dr. Sanjeev Webster, DO iron polysaccharides 150 MG capsule Commonly known as: NIFEREX Take 1 capsule (150 mg total) by mouth daily. Signed by: Dr. Sanjeev Webster, DO methIMAzole 10 MG tablet Commonly known as: TAPAZOLE Take 1 tablet by mouth once daily Last time this was given: 10 mg on August 29, 2022 9:11 AM Signed by: Dr. Sanjeev Webster, DO metoprolol tartrate 25 MG tablet Commonly known as: LOPRESSOR Take 0.5 tablets (12.5 mg total) by mouth 2 (two) times daily. Last time this was given: 12.5 mg on August 29, 2022 9:11 AM Signed by: Dr. Sanjeev Webster DO omeprazole 20 MG capsule Commonly known as: PriLOSEC Take 1 capsule by mouth once daily Signed by: Dr. Sanjeev Webster, DO potassium chloride CR 10 MEQ Tbcr tablet Commonly known as: K-TAB Take 1 tablet by mouth once daily Signed by: Dr. Sanjeev Webster DO venlafaxine XR 150 MG 24 hr capsule Commonly known as: EFFEXOR-XR Take 1 capsule (150 mg total) by mouth daily. Last time this was given: 150 mg on August 29, 2022 9:11 AM Signed by: Dr. Sanjeev Webster, DO Vitamin D3 25 MCG (1000 UT) Caps Take 1,000 Units by mouth daily. * warfarin 1 MG tablet Commonly known as: COUMADIN Take 1 tablet by mouth once daily Last time this was given: Ask your nurse or doctor Signed by: Dr. Sanjeev Webster, DO * warfarin 6 MG tablet Commonly known as: COUMADIN Take 1 tablet by mouth once daily Last time this was given: Ask your nurse or doctor Signed by: Dr. Sanjeev Webster, DO * This list has 2 medication(s) that are the same as other medications prescribed for you. Read thedirections carefully, and ask your doctor or other care provider to review them with you. STOP taking these medications lisinopril 20 MG tablet Commonly known as: PRINIVIL Diagnostic Data See full report for details ?? ECG 12 lead 08/27/2022 ?[facility] ?Test Date: ?2022-08-26 Pat Name: ?ANA MARIA JERAMIE ?Department: ?85 ?Room: ?107 Gender: ?Female ?[employer]: ?: ?1945 ?Requested By: EDY JIAMBOI Order Number: [id number] ?Reading MD: ?Chon Wyman ?Measurements Intervals ?[place] ?Rate: ?50 ?P: ?-40 CO: ?198 ?QRS: ?-15 QRSD: ?166 ?T: ?105 QT: ?496 ?QTc: ?455 ?Inte rpretive StatementsSINUS BRADYCARDIA WITH OCCASIONAL SUPRAVENTRICULAR PREMATURE COMPLEXES LEFT BUNDLE BRANCH BLOCK ??[120+ ms QRS DURATION, 80+ ms Q/S IN V1/V2, 85+ ms R IN I/aVL/V5/V6] Compared to ECG 03/18/2022 12:16:43 Sinus rhythm no longer present ?? XR CHEST PORTABLE ??08/26/2022 Date: 08/26/2022 4:20 PM ??Exam: XR CHEST PORTABLE ??Comparison: Chest radiography dated 04/17/2022, the . ??Technique: Single view chest. ??History: Fatigue, shortness of breath and congestion. ??Findings: There are median sternotomy wires from prior open heart surgery. There is evidence of johan ve replacement. The cardiac silhouette is enlarged. There is central vascular congestion. The left costophrenic sulcus is obscured possibly due to atelectasis or infiltrate. The lungs are otherwise clear. There is no pneumothorax. There is calcified disease in the thoracic aorta. There are multilevel degenerative changes in the spine. ? Impression: 1. Cardiomegaly and slight central vascular congestion. 2. Mild indistinct left basilaratelectasis or infiltrate. ?Ordered By: EDY CHANDLER ?? Interpreted By: José Avalos Jr, MD, 08/26/2022 4:32 PM ? Results for orders placed or performed during the hospital encounter of 08/26/22 ECG 12 lead ?? Narrative ?[facility] ?Te st Date: ?2022-08-26 Pat Name: ?ANA MARIA JERAMIE ?Department: ?85 ?Room: ?107 Gender: ?Female ?[employer] Division: ? : ?1945 ?Requested By: EDY JIAMBOI Order Number: [id number] ?Reading MD: ?Chon Wyman ?Measurements Intervals ?[place] ? Rate: ?50 ?P: ?-40 CO: ?198 ?QRS: ?-15 QRSD: ?166 ?T: ?105 QT: ?496 ? QTc: ?455 ?Interpretive Statements SINUS BRADYCARDIA WITH OCCASIONAL SUPRAVENTRICULAR PREMATURE COMPLEXES LEFT BUNDLE BRANCH BLOCK ??[120+ ms QRS DURATION, 80+ ms Q/S IN V1/V2, 85+ ms R IN I/aVL/V5/V6] Compared to ECG 03/18/2022 12:16:43 Sinus rhythm no longer present Assessment and Plan: ?? Ana Maria Bobo??is a 77-year-old??female??with PMH of??CHF, HTN, A Fib??with??diagnostic evaluation notable for??orthostatic hypotension and possible UTI. As such I am concerned for continued decline. I??will admit to??med??to provide appropriate level??of care??and treatment??to patient??as we ll as continued evaluation.? Orthostatic Hypotension: Presents with dizziness intermittently for >1 mo Orthostatic VS + Appears volume depleted on exam Hold lasix, lisinopril Stop lisinopril at dc Restart lasix at small dose Metoprolol with hold parameters Gentle hydration, with close attention to volume status in context of HF Daily weights/I&O Resolved ?? OLIVE??on CKD3: From volume depletion/hypotension Improving with hydration 2.4>1.5>1.1 Baseline 1.2 Hold lisinopril/lasix Consider stopping gabapentin for does not continue to improve Avoid nephrotoxic agents Improved ?? Possible UTI: UA suggestive of UTI Rocephin Follow urine culture , polymicrobial growth Stop ABX UTI ruled out ?? Infiltrate vs Atelectasis: Noted on CXR Suspect atelectasis PCT negative x2 Rocephin as above for now, deescalate when able Suspect atelectasis , stop ABX ?? Chronic HFrEF: Appears dry on exam Hold lasix in context of above Monitor for volume overload Daily weights Monitor I&O When diuretic is restarted at lower dose Follows with Dr. Paredes? A Fib??history of mechanical valve??: Follows with Continue metoprolol with hold parameters Warfarin for stroke prophlyaxis CAD: Continue BB as BP allows No chest pain Statin intolerant per allergy profile? GERD: PPI ?? Depression/Anxiety: Continue home regimen ?? H/o PAOLA: On iron Trend H&H ?? Neuropathy: Continue stopping gabapentin pending renal function ?? COPD: Albuterol PRN No exacerbation ?? Hyperthyroidism?? Continue methimazole Follows with endocrinology ?? H/o??Right MCA aneurysm ?? Disposition: home Followup Lab Orders:bmp Time Spent on Discharge 35 mins Signed: LINA HURLEY NP Cosigned by Evelina Rubalcava MD at 08/30/2022 11:15 AM CDT documented in this encounter Discharge Instructions * Attachments The following attachments cannot be sent through Care Everywhere. * Acute Kidney Injury Discharge Instructions (Nauruan) * Orthostatic Hypotension Discharge Instructions (Nauruan) documented in this encounter Medications at Time [...] ronic obstructive pulmonary disease, unspecified COPD type (CMS/HCC [facility]) Inhale 2 puffs into the lungs every 6 (six) hours as needed for Wheezing. 18 g 1 06/24/2022 3 ALPRAZolam (XANAX) 0.5 MG tabletIndications:Anx iety TAKE 1/2 (ONE-HALF) TABLET BY MOUTH NIGHTLY NEEDED FOR SLEEP 15 tablet 08/28/2022 3 furosemide (LASIX) 80 MG tabletIndications:Chr onic heart failure with preserved ejection fraction (HFpEF) ([facility] HHS/HCC) Take 0.5 tablets (40 mg total) by mouth daily. 30 tablet 08/29/2022 4 gabapentin (NEURONTIN) 300 MG capsuleIndications:Ch ronic low back pain, unspecified back pain laterality, unspecified whether sciatica present Take 1 capsule (300 mg total) by mouth 3 (three) times daily. 270 capsule 05/20/2022 4 HYDROcodone-acetamino phen (NORCO) 10-325 MG tabletIndications:Chr onic Pain Take 1 tablet by mouth every 6 (six) hours as needed for Pain. Indications: Chronic Pain Do not take with alprazolam. 30 tablet 05/20/2022 3 iron polysaccharides (NIFEREX) 150 MG capsuleIndications:Ir on deficiency anemia, unspecified iron deficiency anemia type Take 1 capsule (150 mg total) by mouth daily. 30 capsule 2 06/03/2022 4 methIMAzole (TAPAZOLE) 10 MG tabletIndications:Hyp erthyroidism Take 1 tablet by mouth once daily 90 tablet 1 02/07/2022 3 metoprolol tartrate (LOPRESSOR) 25 MG tabletIndications:Chr onic heart failure with preserved ejection fraction (HFpEF) ([facility] HHS/HCC) Take 0.5 tablets (12.5 mg [...] 08/13/2022 3 documented as of this encounter Progress Notes * Linda Bryant RN - 08/29/2022 11:43 AM CDT RNCM updated [facility] Home health intake group of md this date. They are going to contact pt after d tostart services. Pt states she is aware and agreeable with the above. Pt has dme needed and family at bedside will transport her home. No further RNCM needs at this time. 08/29/22 1040 Discharge Planning Living Arrangements Alone Support Systems Family Members Type of Residence Private residence Assistance/Services Needed Yes IV Infusion at discharge No Patient expects to be discharged to: Home DME Needed at Discharge No Discharge Planning Who is requesting discharge planning? Provider * Roxanna Sood PTA - 08/29/2022 11:39 AM CDT Patient has met all of her PT goals. D/C home today @ 11:00 with HHPT to follow. * Roxanna Sood PTA - 08/29/2022 11:39 AM CDT 08/29/22 1100 Therapy Visit Subjective Patient sitting EOB upon arrival. She just recently got dressed while REGISTERED NURSES was present. The patient states that she is going home @ 11:00 this morning, so she doesn't want to do any therapy. Verified Two Patient Identifiers Yes Patient consents to therapy No Acute Inpatient PT Time Calculation PT Start Time 926 PT Assessment PT Assessment Patient met all of his PT goals as of yesterday. D/C home today with HHPT. Recommendation PT Recommendation Home with assistance;Home PT Plan Progress Discontinue PT If this is the last treatment note,it will serve as the discharge summary Yes End of Session End of Session Safety Bed alarm set/activated;Call light within reach End of Session Comment Patient sitting EOB @ the end of the Rx session. * Linda Bryant RN - 08/29/2022 10:40 AM CDT 08/29/22 1040 Forms Reinforcement Important Message from Medicare (Subsequent IMM) Signed Copy delivered * Maddison Bolden LPN - 08/29/2022 9:59 AM CDT Problem: Reduced risk for falls/injury Goal: Reduced Risk for Falls/Injury Outcome: Progressing Goal: Reduced Risk of Polypharmacy Outcome: Progressing Problem: Pain Goal: Achieve acceptable pain level Outcome: Progressing Goal: Able to cope with pain Outcome: Progressing Goal: Able to perform functional activities within home environment Outcome: Progressing Problem: Fluid Volume - Imbalance Goal: Absence of imbalanced fluid volume signs and symptoms Outcome: Progressing Problem: Discharge Planning Infection Goal: Knowledge of discharge instructions Infection Outcome: Progressing Problem: Infection Goal: Absence of infection signs and symptoms Infection/Isolation Outcome: Progressing Goal: Knowledge of infection control procedures Infection Outcome: Progressing * Brandy Simmons, Alvarez - 08/29/2022 8:27 AM CDT Warfarin Pharmacy to Dose Monitoring Progress Note Ana Maria Bobo is a 77-year-old female for which pharmacy has been consulted to dose warfarin for A.fib and mechanical aortic valve. Goal INR is 2-3. 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 No date: Anxiety 08/22/2020: Atrial fibrillation with rapid ventricular response (CMS/ HCC) No date: Atrial flutter ([facility]) No date: Cataract No date: Chronic anticoagulation Comment: due to mechanical heart valve No date: Chronic pain No date: Diabetes mellitus ([facility]) 2004: H/O mechanical aortic valve replacement No date: Hypertension 02/03/2017: Kidney stone 05/21/2021: On amiodarone therapy Home warfarin dose: 7 mg daily Bridging agent: none Vitamin K usage: No; (if yes, indicate date, dose, and route) Diet: PO, no meals charted for past two days Recent Labs Lab 08/27/22 0610 08/28/22 0555 08/29/22 0635 INR 3.0 3.5 2.4 HGB 10.3* 9.2* 8.8* HCT 31.9* 29.5* 27.9* PLT 211 195 188 Date INR Dose Received 08/26 2.4 7 mg 08/27 3.0 1 mg 08/28 3.5 - 08/29 2.4 Interacting Medications: Potential to increase INR: ceftriaxone (08/26) Potential to decrease INR: methimazole (home med) Potential to increase the risk of bleeding: none Assessment/Plan: Hgb/Hct today are stable INR today is Therapeutic The plan is to give 7 mg this evening. Pharmacy will continue to monitor labs daily, adjusting the dose as clinically appropriate. Thank you for this consult, BRANDY SIMMONS, PharmD 08/29/2022 8:27 AM * GUNJAN Metcalf - 08/29/2022 3:48 AM CDT Problem: Reduced risk for falls/injury Goal: Reduced Risk for Falls/Injury 08/29/2022347 by GUNJAN Metcalf Outcome: Progressing 08/29/2022346 by GUNJAN Metcalf Outcome: Progressing Goal: Reduced Risk of Polypharmacy 08/29/2022347 by GUNJAN Metcalf Outcome: Progressing 08/29/2022346 by GUNJAN Metcalf Outcome: Progressing Problem: Pain Goal: Achieve acceptable pain level 08/29/2022347 by GUNJAN Metcalf Outcome: Progressing 08/29/2022346 by GUNJAN Metcalf Outcome: Progressing Goal: Able to cope with pain 08/29/2022347 by GUNJAN Metcalf Outcome: Progressing 08/29/2022346 by GUNJAN Metcalf Outcome: Progressing Goal: Able to perform functional activities within home environment 08/29/2022347 by GUNJAN Metcalf Outcome: Progressing 08/29/2022346 by GUNJAN Metcalf Outcome: Progressing Problem: Fluid Volume - Imbalance Goal: Absence of imbalanced fluid volume signs and symptoms 08/29/2022347 by GUNJAN Metcalf Outcome: Progressing 08/29/2022346 by GUNJAN Metcalf Outcome: Progressing Problem: Discharge Planning Infection Goal: Knowledge of discharge instructions Infection 08/29/2022347 by GUNJAN Metcalf Outcome: Progressing 08/29/2022346 by GUNJAN Metcalf Outcome: Progressing Problem: Infection Goal: Absence of infection signs and symptoms Infection/Isolation 08/29/2022347 by GUNJAN Metcalf Outcome: Progressing 08/29/2022346 by GUNJAN Metcalf Outcome: Progressing Goal: Knowledge of infection control procedures Infection 08/29/2022347 by GUNJAN Metcalf Outcome: Progressing 08/29/2022346 by GUNJAN Metcalf Outcome: Progressing * Paulina Still PTA - 08/28/2022 3:57 PM CDT Patient progressing toward all goals. * Paulina Still PTA - 08/28/2022 3:54 PM CDT 08/28/22 1300 Therapy Visit Subjective Patient asleep in bed upon arrival. Pt states that her legs and butt are sore from sitting. Reason for admission OLIVE Relevant Comorbidities/ Personal Factors to PT HTN, DM, anxiety, mechanical aortic valve, atrial flutter, aneurysm, a fib, chronic anticoagulation, chronic pain Verified Two Patient Identifiers Yes Patient consents to therapy Yes Acute Inpatient PT Time Calculation PT Start Time 1405 PT Stop Time 1438 PT Time Calculation (min) 33 min Precautions General Precautions Bed Alarm;Chair Alarm;Fall Risk Instructed on Precautions Yes;Verbalizes understanding Pain Pain Yes Pain Score Did not rate Location legs and butt from sitting Activity Tolerance Endurance Tolerates 30 min activity with rests Endurance Quality Fair Limiting Factors to Endurance Fatigue Post Activity VS Recovery O2 sat level 100% on RA after ambulation Cognition Overall Cognitive Status WFL Bed Mobility Supine to Sit Contact guard assist Sit to Supine Modified independence TRANSFERS Sit to Stand SBA/supervision Other (Comment) stand to sit with SBA Gait Gait Assistance Contact guard assist;SBA/supervision Assistive Device 2 Wheeled walker Distance Ambulated (ft) 150 ft Weight Bearing Status Total Other (Comment) Pt fatigued by end of session Balance Sitting - Static Independent Sitting - Dynamic Modified independence Standing - Static SBA Standing - Dynamic SBA;Support of both upper extremities Exercises Ankle Pumps x 15 B Quad Sets x 10 B Heelslides x 5 B Glut Sets x 15 Hip Abduction x 10 B PT Assessment PT Assessment Patient continue to progress with PT intervention. Increased gait distance this PM with some fatigue towards end, but no c/o SOB. Pt did report some LE discomfort with heel slides, so limited reps completed. Patient/Family Training Bed Mobility x Transfer Training x Gait Training x Exercise Program x Plan Progress Progressing toward goals PT plan for next session Continue PT progressing ther ex and mobility as tolerated. If this is the last treatment note,it will serve as the discharge summary Yes End of Session End of Session Safety Bed alarm set/activated;Call light within reach;Nursing aware of session End of Session Comment Nurse present for IV care. * Linda Bryant RN - 08/28/2022 12:12 PM CDT RNCM spoke with pt at bedside who is agreeable with home health at [place]. Program Paraprofessional has provided a complete list of the following types of agencies, C, to family member utilizing the [employer]. I have explained that the tablets will display messer quality metrics along with any entity in which [facility] has a vested interest to disclose any financial obligations. Selected options were discussed and family member voiced a preference for [facility]. Referral was made based on family member preference. RNCM received update from [facility] they no longer service pt's area. RNCM updated pt who wishes for [facility]/ [facility]. RNCM made referral at this time. RNCM received vm from [facility] hospital they are unable to accept pt at this time. * Linda Bryant RN - 08/28/2022 12:12 PM CDT 08/28/22 1211 Interdisciplinary Group Conference Team Members Present Physician;Case/Care management;Nursing;PT/OT;Pharmacy;Physician Advisor Physician present for group conference Lina Hurley NP Barriers to Discharge Other (Comment)follow up orthostatics, f/u with cardiology outpatient, [facility] * Sydney Bunch, PT - 08/28/2022 10:39 AM CDT Patient making slow progress toward goals. * Sydney Bunch, PT - 08/28/2022 10:39 AM CDT 08/28/22 0900 Therapy Visit Subjective Patient sitting in chair upon arrival and agreeable to PT. Reason for admission OLIVE Relevant Comorbidities/ Personal Factors to PT HTN, DM, anxiety, mechanical aortic valve, atrial flutter, aneurysm, a fib, chronic anticoagulation, chronic pain Verified Two Patient Identifiers Yes Patient consents to therapy Yes Acute Inpatient PT Time Calculation PT Start Time 912 PT Stop Time 0929 PT Time Calculation (min) 16 min Precautions General Precautions Bed Alarm;Chair Alarm;Fall Risk Instructed on Precautions Yes;Verbalizes understanding Activity Tolerance Endurance Tolerates 10 - 20 min activity with rests Endurance Quality Fair Limiting Factors to Endurance Fatigue;Shortness of breath Post Activity VS Recovery O2 sat level 96% on RA after ambulation Cognition Overall Cognitive Status WFL Bed Mobility Sit to Supine Modified independence TRANSFERS Sit to Stand Contact guard assist Other (Comment) Stand to sit CGA Gait Gait Assistance SBA/supervision;Min assist Assistive Device 2 Wheeled walker Distance Ambulated (ft) (35 ft, then 25 ft.) Weight Bearing Status Total Balance Sitting - Static Independent Sitting - Dynamic Modified independence Standing - Static SBA;Support of both upper extremities Standing - Dynamic SBA;Support of both upper extremities PT Assessment PT Assessment Patient able to ambulate a greater distance with breaks this morning, however does become SOB with activity. Patient also required less assist during ambulation but is still requiring CGA during sit to stand for safety. Patient is progressing towards her goals. Patient/Family Training Bed Mobility Yes - hand placement Transfer Training Yes hand placement Gait Training Yes Recommendation PT Recommendation Home with assistance;Home PT PT Equipment Recommended Currently has DME in Place Plan Progress Progressing toward goals PT plan for next session Continue PT progressing ther ex and mobility as tolerated. If this is the last treatment note,it will serve as the discharge summary Yes End of Session End of Session Safety Bed alarm set/activated;Call light within reach * Lina Hurley RAILROAD FIRER/FIREMAN - 08/28/2022 10:11 AM CDT Hospitalist Progress Note Subjective Ms. Bobo is sitting upright in chair when evaluated. Reports to feeling fair. Tells me her head hurts. No dizziness or lightheadedness. No nausea or vomiting. Objective Blood pressure 129/54, pulse 65, temperature 98.5 ??F (36.9 ??C), temperature source Temporal, resp. rate 18, height 5' 5 (1.651 m), weight 87 kg (191 lb 12.8 oz), SpO2 95 %. Intake/Output last 3 shifts: I/O last 3 completed shifts: In: 940 [P.O.:940] Out: - ROS negative except that noted in subjective. GENERAL: no acute distress, well nourished, well developed HEENT: mucous membranes dry RESPIRATORY: diminished breath sounds, no wheezes, or crackles noted CARDIAC: bradycardia, murmur, no peripheral edema GI: nontender, nondistended, bowel sounds present, no obvious masses MUSC: ROM grossly intact NEURO: . Alert, no gross deficit SKIN: No rashes , skin is warm and dry LYMPH: No obvious lymphadenopathy PSYCH: Alert, appropriate Diagnostic Data See full report for details ?? ECG 12 lead 08/27/2022 [facility] Test Date: 2022-08-26 Pat Name: ANA MARIA BOBO Department: 85 Room: 107 Gender: Female [employer]: : 1945 Requested By: EDY CHANDLER Order Number: [id number] Reading MD: Chon Wyman Measurements Intervals [place] Rate: 50 P: -40 CO: 198 QRS:-15 QRSD: 166 T: 105 QT: 496 QTc: 455 Interpretive Statements SINUS BRADYCARDIA WITH OCCASIONAL SUPRAVENTRICULAR PREMATURE COMPLEXES LEFT BUNDLE BRANCH BLOCK [120+ ms QRS DURATION, 80+ ms Q/S IN V1/V2, 85+ ms R IN I/aVL/V5/V6] Compared to ECG 03/18/2022 12:16:43 Sinus rhythm no longer present ?? XR CHEST PORTABLE 08/26/2022 Date: 08/26/2022 4:20 PM Exam: XR CHEST PORTABLE Comparison: Chest radiography dated 04/17/2022, . Technique: Single view chest. History: Fatigue, shortness of breath and congestion. Findings: There are median sternotomy wires from prior open heart surgery. There is evidence of valve replacement. The cardiac silhouette is enlarged. There is central vascular congestion. The left costophrenic sulcus is obscured possibly due to atelectasis or infiltrate. The lungs are otherwise clear. There is no pneumothorax. There is calcified disease in the thoracic aorta. There are multilevel degenerative changes in the spine. ?? Impression: 1. Cardiomegaly and slight central vascular congestion. 2. Mild indistinct left basilaratelectasis or infiltrate. Ordered By: EDY CHANDLER Interpreted By: José Avalos Jr, MD, 08/26/2022 4:32 PM ? Results for orders placed or performed during the hospital encounter of 08/26/22 ECG 12 lead ?? Narrative ?? [facility] Test Date: 2022-08-26 Pat Name: ANA MARIA BOBO Department: 85 Room: 107 Gender: Female [employer]: : 1945 Requested By: EDY CHANDLER Order Number: [id number] Reading MD: Chon Wyman Measurements Intervals [place] Rate: 50 P: -40 CO: 198 QRS: -15 QRSD: 166 T: 105 QT: 496 QTc: 455 Interpretive Statements SINUS BRADYCARDIA WITH OCCASIONAL SUPRAVENTRICULAR PREMATURE COMPLEXES LEFT BUNDLE BRANCH BLOCK [120+ ms QRS DURATION, 80+ ms Q/S IN V1/V2, 85+ ms R IN I/aVL/V5/V6] Compared to ECG 03/18/2022 12:16:43 Sinus rhythm no longer present Recent Labs Lab 08/26/22 16208/27/22 0610 08/28/22 0555 NA 136 143 144 K 4.1 4.4 4.8 CL 100 110* 112* CO2 28.8 25.6 23.4 AGAP 7.2 7.4 8.6 BUN 55* 46* 29* CR 2.44* 1.58* 1.15* BUNCREATININ 22.5 29.1* 25.2 GLU 195* 81 75 CA 10.6* 10.0 10.1 Recent Labs Lab 08/26/22 16208/27/22 0610 08/28/22 0555 WBC 5.85 4.63 4.31* RBC 3.42* 3.08* 2.79* HGB 11.4* 10.3* 9.2* HCT 35.9 31.9* 29.5* MCV 105.0* 103.6* 105.7* MCH 33.3* 33.4* 33.0* MCHC 31.8 32.3 31.2 PLT 245 211 195 RDW 12.3* 12.0* 12.3* MPV 12.5* 12.7* 12.8* PERNEU 63.8 47.1 44.6 PERLYM 21.5 34.8 37.4 PERMON 10.1 12.5 11.1 NEUC 3.73 2.18 1.92 LYMC 1.26 1.61 1.61 Medication: ??? cefTRIAXone 1 g Intravenous Q24H ??? ferrous sulfate (65 mg elemental) 1 tablet Oral Daily with breakfast ??? gabapentin 300 mg Oral TID ??? methIMAzole 10 mg Oral Daily ??? metoprolol tartrate 12.5 mg Oral BID ??? pantoprazole EC 20 mg Oral Daily ??? venlafaxine XR 150 mg Oral Daily ??? warfarin (COUMADIN) pharmacy to dose Oral See Admin Instructions ??? sodium chloride 75 mL/hr at 08/28/22 0038 acetaminophen, albuterol sulfate HFA, ALPRAZolam, HYDROcodone-acetaminophen, ondansetron, Senna Assessment and Plan: Ana Maria Bobo is a 77-year-old female??with PMH of CHF, HTN, A Fib with??diagnostic evaluation notable for orthostatic hypotension and possible UTI. As such I am concerned for continued decline. I??will admit to med to provide appropriate level??of care??and treatment??to patient??as well as c ontinued evaluation.? Orthostatic Hypotension: Presents with dizziness intermittently for >1 mo Orthostatic VS + Appears volume depleted on exam Hold lasix, lisinopril Metoprolol with hold parameters Gentle hydration, with close attention to volume status in context of HF Daily weights/I&O ?? OLIVE on CKD3: From volume depletion/hypotension Improving with hydration 2.4>1.5>1.1 Baseline 1.2 Hold lisinopril/lasix Consider stopping gabapentin for does not continue to improve Avoid nephrotoxic agents ?? Possible UTI: UA suggestive of UTI Rocephin Follow urine culture , polymicrobial growth Stop ABX UTI ruled out ?? Infiltrate vs Atelectasis: Noted on CXR Suspect atelectasis PCT negative x2 Rocephin as above for now, deescalate when able Suspect atelectasis , stop ABX ?? Chronic HFrEF: Appears dry on exam Hold lasix in context of above Monitor for volume overload Daily weights Monitor I&O When diuretic is restarted, consider decrease dose Follows with Dr. Paredes ?? A Fib history of mechanical valve : Follows with Continue metoprolol with hold parameters Warfarin for stroke prophlyaxis CAD: Continue BB as BP allows No chest pain Statin intolerant per allergy profile ?? GERD: PPI ?? Depression/Anxiety: Continue home regimen ?? H/o PAOLA: On iron Trend H&H ?? Neuropathy: Continue stopping gabapentin pending renal function ?? COPD: Albuterol PRN No exacerbation ?? Hyperthyroidism?? Continue methimazole Follows with endocrinology ?? H/o Right MCA aneurysm ? SDOH: stress, financial strain ?? DVT prophylaxis: ??warfarin?? ACP: Code status:full?? Cosigned by Mateo Gallo MD at 08/28/2022 3:30 PM CDT Associated attestation - Mateo Gallo MD - 08/28/2022 3:30 PM CDT The patient was seen and examined separately from the Advanced Provider. I reviewed the chart and agree with the orders and Assessment / Plan as documented. GEN Tired, Speaking in complete sentences HEENT MMM CHEST normal work of breathing CVS trace edema Abd non distended Ext tr edema Psych Flat affect, nl mood Neuro CNII-XII grossly intact Very pleasant 77-year-old female with improving OLIVE. * Brandy Simmons, PharmD - 08/28/2022 9:04 AM CDT Warfarin Pharmacy to Dose Monitoring Progress Note Ana Maria Bobo is a 77-year-old female for which pharmacy has been consulted to dose warfarin for A.fib and mechanical aortic valve. Goal INR is 2-3. 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 No date: Anxiety 08/22/2020: Atrial fibrillation with rapid ventricular response (CMS/ HCC) No date: Atrial flutter ([facility]) No date: Cataract No date: Chronic anticoagulation Comment: due to mechanical heart valve No date: Chronic pain No date: Diabetes mellitus ([facility]) 2004: H/O mechanical aortic valve replacement No date: Hypertension 02/03/2017: Kidney stone 05/21/2021: On amiodarone therapy Home warfarin dose: 7 mg daily Bridging agent: none Vitamin K usage: No; (if yes, indicate date, dose, and route) Diet: PO, eating 50-90% of meals Recent Labs Lab 08/26/22 0000 08/26/22 1621 08/27/22 0610 08/28/22 0555 INR 2.40 -- 3.0 3.5 HGB -- 11.4* 10.3* 9.2* HCT -- 35.9 31.9* 29.5* PLT -- 245 211 195 Date INR Dose Received 08/26 2.4 7 mg 08/27 3.0 1 mg 08/28 3.5 - Interacting Medications: Potential to increase INR: ceftriaxone (08/26) Potential to decrease INR: methimazole (home med) Potential to increase the risk of bleeding: none Assessment/Plan: Hgb/Hct today are stable INR today is Supratherapeutic The plan is to hold dose this evening. Pharmacy will continue to monitor labs daily, adjusting the dose as clinically appropriate. Thank you for this consult, BRANDY SIMMONS, PharmD 08/28/2022 9:05 AM * Isabel Martinez PTA - 08/27/2022 2:23 PM CDT 08/27/22 1300 Therapy Visit Ordering Provider Jose Villa MD PT Evaluation Completed on 08/27/22 Subjective Pt lying in bed upon arrival but agrees to therapy. Reason for admission OLIVE Relevant Comorbidities/ Personal Factors to PT HTN, DM, anxiety, mechanical aortic valve, atrial flutter, aneurysm, a fib, chronic anticoagulation, chronic pain Verified Two Patient Identifiers Yes Patient consents to therapy Yes Acute Inpatient PT Time Calculation PT Start Time 1345 PT Stop Time 1409 PT Time Calculation (min) 24 min Precautions General Precautions Bed Alarm;Chair Alarm;Fall Risk Instructed on Precautions Yes;Verbalizes understanding Pain Pain Yes Pain Score 7 Location back Interventions Re-positioning (Pt states she had [place] for pain earlier) Activity Tolerance Endurance Tolerates 20 - 30 min activity with rests Endurance Quality Fair Limiting Factors to Endurance Pain;Fatigue Post Activity VS Recovery BP sitting 147/63; HR 52 bpm Cognition Overall Cognitive Status WFL Bed Mobility Supine to Sit Modified independence Sit to Supine Modified independence TRANSFERS Sit to Stand Contact guard assist Other (Comment) Stand to sit CGA Gait Gait Assistance Contact guard assist (assist with IV pole) Assistive Device 2 Wheeled walker Distance Ambulated (ft) 30 ft Weight Bearing Status Total Balance Sitting - Static Independent Sitting - Dynamic SBA Standing - Static CGA Standing - Dynamic CGA Exercises Ankle Pumps x 15 B Quad Sets x 10 B Short Arc Quad x 10 B Glut Sets x 15 Other (Comment) Pt fatigued quickly during ex. PT Assessment PT Assessment Pt able to amb greater distance this session but fatigued quickly; pt able to complete some supine ex but held some due to ongoing fatigue. Patient/Family Training Bed Mobility x Transfer Training x Gait Training x Exercise Program x Plan If this is the last treatment note,it will serve as the discharge summary Yes End of Session End of Session Safety Bed alarm set/activated;Call light within reach End of Session Comment Pt lying in bed at end of session. * Brandy Simmons, PharmD - 08/27/2022 1:35 PM CDT Warfarin Pharmacy to Dose Monitoring Progress Note Ana Maria Bobo is a 77-year-old female for which pharmacy has been consulted to dose warfarin for A.fib and mechanical aortic valve. Goal INR is 2-3. 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 No date: Anxiety 08/22/2020: Atrial fibrillation with rapid ventricular response (CMS/ HCC) No date: Atrial flutter (CMS/HCC) No date: Cataract No date: Chronic anticoagulation Comment: due to mechanical heart valve No date: Chronic pain No date: Diabetes mellitus (CMS/HCC) 2004: H/O mechanical aortic valve replacement No date: Hypertension 02/03/2017: Kidney stone 05/21/2021: On amiodarone therapy Home warfarin dose: 7 mg daily Bridging agent: none Vitamin K usage: No; (if yes, indicate date, dose, and route) Diet: PO, eating 90% of meals Recent Labs Lab 08/26/22 0000 08/26/22 1621 08/27/22 0610 INR 2.40 -- 3.0 HGB -- 11.4* 10.3* HCT -- 35.9 31.9* PLT -- 245 211 Date INR Dose Received 08/26 2.4 7 mg 08/27 3.0 Interacting Medications: Potential to increase INR: ceftriaxone (08/26) Potential to decrease INR: methimazole (home med) Potential to increase the risk of bleeding: none Assessment/Plan: Hgb/Hct today are stable INR today is Therapeutic The plan is to give 1 mg this evening. Pharmacy will continue to monitor labs daily, adjusting the dose as clinically appropriate. Thank you for this consult, BRANDY SIMMONS, PharmD 08/27/2022 1:35 PM * Linda Bryant RN - 08/27/2022 11:50 AM CDT 08/27/22 1150 Interdisciplinary Group Conference Team Members Present Physician;Case/Care management;Nursing;PT/OT;Pharmacy;Dietary;Physician Advisor Physician present for group conference Lina Hurley NP Barriers to Discharge Barriers Other (Comment) Other (Comment)follow up IVF, abx, working with PT * Sydney Bunch, PT - 08/27/2022 9:46 AM CDT 08/27/22 0900 Therapy Visit Ordering Provider Jose Villa MD PT Evaluation Completed on 08/27/22 Subjective Patient in bed upon arrival and agreeable to PT. Patient states her face is hurting. Reason for admission OLIVE Relevant Comorbidities/ Personal Factors to PT HTN, DM, anxiety, mechanical aortic valve, atrial flutter, aneurysm, a fib, chronic anticoagulation, chronic pain Verified Two Patient Identifiers Yes Patient consents to therapy Yes Acute Inpatient PT Time Calculation PT Start Time 0845 PT Stop Time 09 PT Time Calculation (min) 23 min PT Therapy Interruption (min) eval time 45 minutes including chart review and documentation. 23 minutes of face to face time and 8 minutes treatment time. Precautions General Precautions Bed Alarm;Chair Alarm;Fall Risk Instructed on Precautions Yes;Verbalizes understanding Home Living Type of Home Mobile home Home Layout One level Home Accessibility 0 Steps to enter Home Equipment 2 Wheeled walker;Straight cane (Patient states she uses the straight cane most of the time) Prior Function Level of [place] Independent with ADLs;Independent with functional transfers;Independent with ambulation;Independent with homemaking with ambulation Device used at baseline Straight cane Baseline Ambulation Distance/Assistance community Lives With Alone Pain Pain Yes Pain Score 8 Location Face and low back Interventions Re-positioning (Notified RN) Activity Tolerance Endurance Tolerates < 10 min activity, no significant change in vital signs Endurance Quality Fair Limiting Factors to Endurance Pain;Fatigue Pre-activity VS BP 137/55 laying in bed VS Response During Activity BP 126/66 sitting on EOB Post Activity VS Recovery BP 127/58 standing Cognition Overall Cognitive Status WFL Arousal/Alertness Appropriate responses to stimuli Attention Span Appears intact Memory Appears intact Orientation Level Oriented X4 Following Commands Follows all commands and directions without difficulty Overall Extremity Assessment Lower Extremity WFL Bed Mobility Supine to Sit Modified independence TRANSFERS Sit to Stand Contact guard assist Other (Comment) Stand to sit CGA Gait Gait Assistance Contact guard assist;Min assist (Min A with IV pole) Assistive Device 2 Wheeled walker Distance Ambulated (ft) 18 ft Weight Bearing Status Total Balance Sitting - Static Independent Sitting - Dynamic SBA (patient had a LOB to the R when sitting on side of bed but able to correct independently) Standing - Static CGA Standing - Dynamic CGA Assessment Personal Factors/Comorbidities Impacting Care 3-4 personal factors/comorbidities Examination of Body Systems High (at least 4 Elements) Objectives of Body Systems Impaired bed mobility;Impaired transfers;Impaired ambulation;Impaired balance Clinical Presentation of Patient Evolving and changing characteristics Complexity Level of Evaluation Moderate Prognosis Good PT Assess/Eval Other (Comment) Patient has had a decline in her functional mobility due to her OLIVE.Patient would benefit from skilled PT during her hospital stay in order to return to her PLOF and return home managing safely and independently. Do not anticipate need for swing bed. Patient/Family Training Bed Mobility Yes - hand placement Transfer Training Yes - hand placement Gait Training Yes - safety Recommendation PT Recommendation Home PT;Home with assistance PT Equipment Recommended Currently has DME in Place Plan PT Treatments/Interventions Gait Training;Therapeutic Exercises;Therapeutic Activities;Patient/family training PT Frequency (1-2 x a day for 2-3 days) PT plan for next session Continue PT progressing ther ex and mobility as tolerated. If this is the last treatment note,it will serve as the discharge summary Yes End of Session End of Session Safety Chair alarm set/activated;Call light within reach;Nursing aware of session End of Session Comment Pt sitting in chair at end of treatment session. * Linda Bryant RN - 08/27/2022 8:56 AM CDT NCM performed bedside interview. Pt name and verified. Support: sister, friend Home: Pt lives alone in a mobile home with no steps to enter DME: cane,walker Drives: yes Transport Home: friend Home Health: denies Address: Verified as accurate per chart. Pharmacy: [facility] PCP: Dr. Sanjeev Farrar Medications: Pt denies concerns Insurance Plan: [employer]: Pt denies concerns. Discharge Needs: No needs identified at this time. Care Coordination Team will provide discharge planning as needed, and will re-evaluate based on recommendations and treatment course. 08/27/22 0871 Referral Data Source of Information Patient Patient Information Primary Caregiver Self Current living Situation Alone Type of Residence Private residence Support System Immediate family Are you employed? Retired Recent Hospitalization Recent Hospitalization within 30 days No Baseline ADL's Functional Status Independent Active DME Cane;Walker Behavior Oriented Communication Talks;Understands speaking;Understands Nauruan Psychosocial Need Indicator Mental health concerns No Diagnosis/prognosis resulting in poor adjustment or coping with illness No Diagnosis/prognosis with anticipated outcome of major lifestyle changes, including change in longterm living environment No Complex Family concerns No Abuse and/or neglect of elder, adult or child No Psychiatric and/or substance abuse issues affecting current hospitalization No Homelessness with lack of safe discharge environment No Need for guardianship petition No Chaptered patient No DC screening tool This is a screening tool it does not take the place of a physical or occupational therapy evaluation. The screening is to screen the patient for what services and destination would be beneficial for patient for next level of care Conversation with the patient/family Discharge to Prior Residence/Living Situation - No New Needs Identified - Will continue to Assess Yes Anticipated DC Plan Living Arrangements Alone Support Systems Family members Type of Residence Private residence Assistance Needed No Patient expects to be discharged to: Home documented in this encounter H&P Notes * Lina Hurley NP - 08/27/2022 9:30 AM CDT HISTORY OF PHYSICAL PRIMARY CARE PROVIDER: Sanjeev Webster DO Chief Complaint: dizziness HPI: Ana Maria Bobo is a 77-year-old female who presents with weakness and dizziness . She has a past medical history of CHF, A fib, h/o MVR, anxiety, neuropathy, PAOLA, HTN, hyperthyroidism, and GERD.She presented as per recommendations of her primary care provider after found to have hypotension in the office. She tells me for more than a month she has been intermittently dizzy with position changes. No recent diarrhea or vomiting. No recent fevers or chills. No dysuria, urgency or frequency. No change in home medication regimen. She has chronic intermittent dyspnea. She uses an inhaler for this. On presentation she was found to be orthostatic, she was started on fluids and admitted to thehospital for further care. Chest x-ray showed atelectasis versus infiltrate, urinalysis was abnormal and sent for culture. History obtained via chart review, discussion with patient . Past Medical History: Diagnosis Date ??? 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 Anxiety ??? Atrial fibrillation with rapid ventricular response (CMS/HCC) 08/22/2020 ??? Atrial flutter (CMS/HCC) ??? Cataract ??? Chronic anticoagulation due to mechanical heart valve ??? Chronic pain ??? Diabetes mellitus (CMS/HCC) ??? H/O mechanical aortic valve replacement 2003 ??? Hypertension ??? Kidney stone 02/03/2017 ??? On amiodarone therapy 05/21/2021 Past Surgical History: Procedure Laterality Date ??? REPAIR HEART WOUND Social History Socioeconomic History ??? Marital status: Spouse name: Not on file ??? Number of children: Not on file ??? Years of education: Not on file ??? Highest education level: Not on file Occupational History ??? Not on file Tobacco Use ??? Smoking status: Never Passive exposure: Past ??? Smokeless tobacco: Never ??? Tobacco comments: non smoker Vaping Use ??? Vaping Use: Never used Substance and Sexual Activity ??? Alcohol use: Not Currently ??? Drug use: Yes Types: Hydrocodone Comment: chronic pain ??? Sexual activity: Not on file Other Topics Concern ??? Not on file Social History Narrative ??? Not on file Social Determinants of Health Financial Resource Strain: High Risk ??? Difficulty of Paying Living Expenses: Hard Food Insecurity: No Food Insecurity ??? Worried About Running Out of Food in the Last Year: Never true ??? Ran Out of Food in the Last Year: Never true Transportation Needs: No Transportation Needs ??? Lack of Transportation (Medical): No ??? Lack of Transportation (Non-Medical): No Physical Activity: Insufficiently Active ??? Days of Exercise per Week: 1 day ??? Minutes of Exercise per Session: 10 min Stress: Stress Concern Present ??? Feeling of Stress : To some extent Social Connections: Moderately Isolated ??? Frequency of Communication with Friends and Family: Three times a week ??? Frequency of Social Gatherings with Friends and Family: Three times a week ??? Attends Sikh Services: More than 4 times per year ??? Active Member of Clubs or Organizations: No ??? Attends Club or Organization Meetings: Never ??? Marital Status: Intimate Partner Violence: Not At Risk ??? Fear of Current or Ex-Partner: No ??? Emotionally Abused: No ??? Physically Abused: No ??? Sexually Abused: No Housing Stability: Low Risk ??? Unable to Pay for Housing in the Last Year: No ??? Number of Places Lived in the Last Year: 1 ??? Unstable Housing in the Last Year: No Family History Problem Relation Name Age of Onset ??? Heart Father ??? Diabetes Father ??? Heart Mother Prior to Admission medications Medication Sig Start Date End Date Taking? Authorizing Provider furosemide (LASIX) 80 MG tablet Take 1 tablet (80 mg total) by mouth daily. 06/03/22 Yes Sanjeev Webster, DO acetaminophen (TYLENOL) 500 MG tablet Take 1 tablet (500 mg total) by mouth daily as needed. No more then 2500 mg per day. 08/17/20 [facility] albuterol sulfate HFA 108 (90 Base) MCG/ACT inhaler Inhale 2 puffs into the lungs every 6 (six) hours as needed for Wheezing. 06/24/22 Sanjeev Webster, DO ALPRAZolam (XANAX) 0.5 MG tablet TAKE 1/2 (ONE-HALF) TABLET BY MOUTH NIGHTLY NEEDED FOR SLEEP 07/24/22 Sanjeev Webster, DO Cholecalciferol (VITAMIN D3) 25 MCG (1000 UT) Cap Take 1,000 Units by mouth daily. [facility] gabapentin (NEURONTIN) 300 MG capsule Take 1 capsule (300 mg total) by mouth 3 (three) times daily.05/20/22 Sanjeev Webster, DO HYDROcodone-acetaminophen (NORCO) 10-325 MG tablet Take 1 tablet by mouth every 6 (six) hours as needed for Pain. Indications: Chronic Pain Do not take with alprazolam. 05/20/22 Sanjeev Webster, DO iron polysaccharides (NIFEREX) 150 MG capsule Take 1 capsule (150 mg total) by mouth daily. 06/03/22Sanjeev Webster, DO lisinopril (PRINIVIL) 20 MG tablet Take 1 tablet by mouth once daily 06/23/22 Sanjeev Webster, DO methIMAzole (TAPAZOLE) 10 MG tablet Take 1 tablet by mouth once daily 02/07/22 Sanjeev Webster,DO metoprolol tartrate (LOPRESSOR) 25 MG tablet Take 0.5 tablets (12.5 mg total) by mouth 2 (two) times daily. 07/31/22 Sanjeev Webster, DO omeprazole (PRILOSEC) 20 MG capsule Take 1 capsule by mouth once daily 02/07/22 Sanjeev Webster, DO potassium chloride CR (K-TAB) 10 MEQ Tab CR tablet Take 1 tablet by mouth once daily 08/13/22 Jonathan Webster, DO venlafaxine XR (EFFEXOR-XR) 150 MG 24 hr capsule Take 1 capsule (150 mg total) by mouth daily. 04/17/22 Sanjeev Webster, DO warfarin (COUMADIN) 1 MG tablet Take 1 tablet by mouth once daily 08/13/22 Sanjeev Webster, DO warfarin (COUMADIN) 6 MG tablet Take 1 tablet by mouth once daily 08/13/22 Sanjeev Webster, DO I have reviewed current outpatient medications and reconciled them for inpatient admission. Appropriate medications to be continued. Inappropriate medications to be held for now. Allergies Allergen Reactions ??? Atorvastatin Leg Pain Leg pain/cramps. Resolved after stopping. ??? Tape Contact Dermatitis ??? Bacitracin Other (see comment) ??? Benzalkonium Other (see comment) ??? Gramicidin Other (see comment) ??? Hydrocortisone Other (see comment) ??? Neomycin Other (see comment) ??? Polymyxin B Other (see comment) ??? Rosuvastatin Leg Pain Cramping in legs ROS: A 10 point review of systems was taken and pertinent positives and negatives as per HPI. All othersnegative save as noted in HPI. PHYSICAL EXAM: No intake or output data in the 24 hours ending 08/27/22 0931 Patient Vitals for the past 24 hrs: BP Temp Temp src Pulse Resp SpO2 Height Weight 08/27/22 0800 (!) 86/49 -- -- (!) 47 -- 93 % -- -- 08/27/22 0755 113/57 -- -- 67 18 97 % -- -- 08/27/22 0750 104/52 97.6 ??F (36.4 ??C) Temporal 68 18 97 % -- -- 08/27/22 0400 99/44 97.3 ??F (36.3 ??C) Temporal 72 16 95 % -- 83.2 kg (183 lb 6.8 oz) 08/26/22 2355 95/42 97.2 ??F (36.2 ??C) Temporal 71 16 97 % -- -- 08/26/22 2102 138/56 -- -- 62 -- -- -- -- 08/26/22 1930 132/54 97.3 ??F (36.3 ??C) Temporal (!) 59 16 100 % 5' 5 (1.651 m) 83 kg (182 lb 15.7 oz) 08/26/22 1816 116/51 -- -- (!) 52 16 97 % -- -- 08/26/22 1633 -- -- -- 73 12 -- -- -- 08/26/22 1628 109/49 -- -- (!) 51 16 98 % -- -- 08/26/22 1624 118/47 -- -- (!) 52 16 96 % -- -- 08/26/22 1557 135/50 97 ??F (36.1 ??C) Temporal 71 18 98 % 5' 5 (1.651 m) 80.3 kg (177 lb) GENERAL: no acute distress, well nourished, well developed HEENT: mucous membranes dry RESPIRATORY: diminished breath sounds, no wheezes, or crackles noted CARDIAC: bradycardia, murmur, no peripheral edema GI: nontender, nondistended, bowel sounds present, no obvious masses MUSC: ROM grossly intact NEURO: . Alert, no gross deficit SKIN: No rashes , skin is warm and dry LYMPH: No obvious lymphadenopathy PSYCH: Alert, appropriate Labs: Recent Labs Lab 08/26/22 1621 08/27/22 0610 WBC 5.85 4.63 RBC 3.42* 3.08* HGB 11.4* 10.3* HCT 35.9 31.9* MCV 105.0* 103.6* MCH 33.3* 33.4* MCHC 31.8 32.3 PLT 245 211 RDW 12.3* 12.0* MPV 12.5* 12.7* PERNEU 63.8 47.1 PERLYM 21.5 34.8 PERMON 10.1 12.5 NEUC 3.73 2.18 LYMC 1.26 1.61 Recent Labs Lab 08/26/22 1621 08/27/22 0610 NA 136 143 K 4.1 4.4 CL 100 110* CO2 28.8 25.6 AGAP 7.2 7.4 BUN 55* 46* CR 2.44* 1.58* BUNCREATININ 22.5 29.1* GLU 195* 81 CA 10.6* 10.0 TP 7.0 -- ALB 3.3* -- TBIL 0.3 -- ALKP 73 -- AST 18 -- ALT 16 -- Recent Labs Lab 08/26/22 1621 TSH 1.277 Recent Labs Lab 08/26/22 0000 08/27/22 0610 INR 2.40 3.0 Recent Labs Lab 08/26/22 1623 TROP 21 Recent Labs Lab 08/26/22 1621 08/26/22 1623 LACTICACID 1.2 -- PROCT -- <0.05 No results for input(s): PH, PCO2, PO2, [id number], BICARBWB, BASEDEFICIT, BASEEXCESS in the [id number] hours. Results for orders placed or performed during the hospital encounter of 08/26/22 URINALYSIS, AUTO, COMPLETE Result Value Ref Range COLOR (U) YELLOW TRANSPARENCY HAZY SPECIFIC GRAVITY (U) <1.005 1.000 - 1.030 U PH 5.0 5.0 - 9.0 LEUKOCYTES (U) 2+ (A) NEGATIVE NITRITES NEGATIVE NEGATIVE PROTEIN (U) NEGATIVE NEGATIVE GLUCOSE (U) NEGATIVE NEGATIVE KETONES (U) NEGATIVE NEGATIVE BILIRUBIN (U) NEGATIVE NEGATIVE BLOOD (U) NEGATIVE NEGATIVE WBC/HPF 10-25 0 - 5 /HPF RBC/HPF 0-5 0 - 5 /HPF EPI/HPF MODERATE /HPF CULTURE & SENSITIVITY INDICATED? SPECIMEN SETUP FOR CULTURE BACTERIA (U) MODERATE /HPF URINE MESSER FEW Diagnostic Review See full report for details ECG 12 lead 08/27/2022 [facility] Test Date: 2022-08-26 Pat Name: ANA MARIA BOBO Department: 85 Room: 107 Gender: Female [employer]: : 1945 Requested By: EDY CHANDLER Order Number: [id number] Reading : Chon Wyman Measurements Intervals [place] Rate: 50 P: -40 CO: 198 QRS: -15 QRSD: 166 T: 105 QT: 496 QTc: 455 Interpretive Statements SINUS BRADYCARDIA WITH OCCASIONAL SUPRAVENTRICULAR PREMATURE COMPLEXES LEFT BUNDLE BRANCH BLOCK [120+ ms QRS DURATION, 80+ ms Q/S IN V1/V2, 85+ ms R IN I/aVL/V5/V6] Compared to ECG 03/18/2022 12:16:43 Sinus rhythm no longer present XR CHEST PORTABLE 08/26/2022 Date: 08/26/2022 4:20 PM Exam: XR CHEST PORTABLE Comparison: Chest radiography dated 04/17/2022, . Technique: Single view chest. History: Fatigue, shortness of breath and congestion. Findings: There are median sternotomy wires from prior open heart surgery. There is evidence of valve replacement. The cardiac silhouette is enlarged. There is central vascular congestion. The left costophrenic sulcus is obscured possibly due to atelectasis or infiltrate. The lungs are otherwise clear. There is no pneumothorax. There is calcified disease in the thoracic aorta. There are multilevel degenerative changes in the spine. Impression: 1. Cardiomegaly and slight central vascular congestion. 2. Mild indistinct left basilaratelectasis or infiltrate. Ordered By: EDY CHANDLER Interpreted By: José Avalos Jr, MD, 08/26/2022 4:32 PM Results for orders placed or performed during the hospital encounter of 08/26/22 [address] [facility] Test Date: 2022-08-26 Pat Name: ANA MARIA BOBO Department: 85 Room: 107 Gender: Female [employer]: : 1945 Requested By: EDY CHANDLER Order Number: [id number] Reading MD: Chon Wyman Measurements Intervals [place] Rate: 50 P: -40 CO: 198 QRS: -15 QRSD: 166 T: 105 QT: 496 QTc: 455 Interpretive Statements SINUS BRADYCARDIA WITH OCCASIONAL SUPRAVENTRICULAR PREMATURE COMPLEXES LEFT BUNDLE BRANCH BLOCK [120+ ms QRS DURATION, 80+ ms Q/S IN V1/V2, 85+ ms R IN I/aVL/V5/V6] Compared to ECG 03/18/2022 12:16:43 Sinus rhythm no longer present ASSESSMENT AND PLAN: Ana Maria Bobo is a 77-year-old female with PMH of CHF, HTN, A Fib with diagnostic evaluation notable for orthostatic hypotension and possible UTI. As such I am concerned for continued decline. I will admit to med to provide appropriate level of care and treatment to patient as well as continued evaluation. Orthostatic Hypotension: Presents with dizziness intermittently for >1 mo Orthostatic VS + Appears volume depleted on exam Hold lasix, lisinopril Metoprolol with hold parameters Gentle hydration, with close attention to volume status in context of HF Daily weights/I&O OLIVE on CKD3: From volume depletion/hypotension Improving with hydration 2.4>1.5 Baseline 1.2 Hold lisinopril/lasix Consider stopping gabapentin for does not continue to improve Avoid nephrotoxic agents Possible UTI: UA suggestive of UTI Rocephin Follow urine culture and deescalate if able Infiltrate vs Atelectasis: Noted on CXR Suspect atelectasis PCT negative, trend Rocephin as above for now, deescalate when able Chronic HFrEF: Appears dry on exam Hold lasix in context of above Monitor for volume overload Daily weights Monitor I&O When diuretic is restarted, consider decrease dose Follows with Dr. Lena Barnard history of mechanical valve : Follows with Continue metoprolol with hold parameters Warfarin for stroke prophlyaxis CAD: Continue BB as BP allows No chest pain Statin intolerant per allergy profile GERD: PPI Depression/Anxiety: Continue home regimen H/o PAOLA: On iron Trend H&H Neuropathy: Continue stopping gabapentin pending renal function COPD: Albuterol PRN No exacerbation Hyperthyroidism?? Continue methimazole Follows with endocrinology H/o Right MCA aneurysm SDOH: stress, financial strain DVT prophylaxis: warfarin ACP: Code status:full I have seen and examined the patient independently and anticipate patient will require >2 midnights. Inpatient LINA HURLEY NP 08/27/2022 9:31 AM Cosigned by Mateo Gallo MD at 08/28/2022 3:29 PM CDT Associated attestation - Mateo Gallo MD - 08/28/2022 3:29 PM CDT The patient was seen and examined separately from the Advanced Provider. I reviewed the chart and agree with the orders, Assessment and Plan as documented. GEN Tired, Speaking in complete sentences HEENT EDINSON, MMM CHEST Dec BS in the bases, no wheezes or crackles CVS RRR, no MRG Abd S, NT, nl BS Ext tr edema Psych Flat affect, nl mood Neuro CNII-XII grossly intact 77-year-old female with OLIVE secondary to high-dose Lasix, that was held. Significantly orthostatic static. Gentle hydration post bolus. documented in this encounter ED Notes * Edy Chandler MD - 08/26/2022 4:11 PM CDT Chief Complaint Chief Complaint Patient presents with Weakness Hypotension Cough History of Present Illness This is a 77-year-old female with history of aortic valve replacement and atrial fibrillation on Coumadin presenting from her primary care office with reports of hypotension at the office. Patient states that she has had a cough for the last 3 days. She states she feels dizzy on and off and that isbeen going on for a few years. She denies any chest pain. Denies feeling short of breath that is dif ferent than usual for her. She denies any abdominal pain, nausea, vomiting, diarrhea, urinary symptoms. Medical History ALLERGIES: Review of patient's allergies indicates: Allergen Reactions Atorvastatin Leg Pain Leg pain/cramps. Resolved after stopping. Tape Contact Dermatitis Bacitracin Other (see comment) Benzalkonium Other (see comment) Gramicidin Other (see comment) Hydrocortisone Other (see comment) Neomycin Other (see comment) Polymyxin B Other (see comment) Rosuvastatin Leg Pain Cramping in legs MEDICATIONS: Prior to Admission medications Medication Sig Start Date End Date Taking? Authorizing Provider acetaminophen (TYLENOL) 500 MG tablet Take 1 tablet (500 mg total) by mouth daily as needed. No more then 2500 mg per day. 08/17/20 [facility] albuterol sulfate HFA 108 (90 Base) MCG/ACT inhaler Inhale 2 puffs into the lungs every 6 (six) hours as needed for Wheezing. 06/24/22 Sanjeev Webster, DO ALPRAZolam (XANAX) 0.5 MG tablet TAKE 1/2 (ONE-HALF) TABLET BY MOUTH NIGHTLY NEEDED FOR SLEEP 07/24/22 Sanjeev Webster, DO Cholecalciferol (VITAMIN D3) 25 MCG (1000 UT) Cap Take 1,000 Units by mouth daily. [facility] furosemide (LASIX) 80 MG tablet Take 1 tablet (80 mg total) by mouth daily. 06/03/22 Sanjeev Webster, DO gabapentin (NEURONTIN) 300 MG capsule Take 1 capsule (300 mg total) by mouth 3 (three) times daily.05/20/22 Sanjeev Webster, DO HYDROcodone-acetaminophen (NORCO) 10-325 MG tablet Take 1 tablet by mouth every 6 (six) hours as needed for Pain. Indications: Chronic Pain Do not take with alprazolam. 05/20/22 Sanjeev Webster, DO iron polysaccharides (NIFEREX) 150 MG capsule Take 1 capsule (150 mg total) by mouth daily. 06/03/22Sanjeev Webster, DO lisinopril (PRINIVIL) 20 MG tablet Take 1 tablet by mouth once daily 06/23/22 Sanjeev Webster, DO methIMAzole (TAPAZOLE) 10 MG tablet Take 1 tablet by mouth once daily 02/07/22 Sanjeev WebsterDO metoprolol tartrate (LOPRESSOR) 25 MG tablet Take 0.5 tablets (12.5 mg total) by mouth 2 (two) times daily. 07/31/22 Sanjeev Webster DO omeprazole (PRILOSEC) 20 MG capsule Take 1 capsule by mouth once daily 02/07/22 Sanjeev Webster, DO potassium chloride CR (K-TAB) 10 MEQ Tab CR tablet Take 1 tablet by mouth once daily 08/13/22 Jonathan Webster DO venlafaxine XR (EFFEXOR-XR) 150 MG 24 hr capsule Take 1 capsule (150 mg total) by mouth daily. 04/17/22 Sanjeev Webster DO warfarin (COUMADIN) 1 MG tablet Take 1 tablet by mouth once daily 08/13/22 Sanjeev Webster, DO warfarin (COUMADIN) 6 MG tablet Take 1 tablet by mouth once daily 08/13/22 Sanjeev Webster DO PAST MEDICAL HISTORY: 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 Anxiety Atrial fibrillation with rapid ventricular response (CMS/HCC) 08/22/2020 Atrial flutter (CMS/HCC) Cataract Chronic anticoagulation due to mechanical heart valve Chronic pain Diabetes mellitus (CMS/[facility]) H/O mechanical aortic valve replacement 2003 Hypertension Kidney stone 02/03/2017 On amiodarone therapy 05/21/2021 PAST SURGICAL HISTORY: Past Surgical History: Procedure Laterality Date REPAIR HEART WOUND FAMILY HISTORY: Family History Problem Relation Name Age of Onset Heart Father Diabetes Father Heart Mother SOCIAL HISTORY: Social History Tobacco Use Smoking status: Never Passive exposure: Past Smokeless tobacco: Never Tobacco comments: non smoker Vaping Use Vaping Use: Never used Substance Use Topics Alcohol use: Not Currently Drug use: Yes Types: Hydrocodone Comment: chronic pain Review of Systems Review of Systems Constitutional: Negative for chills and fever. HENT: Positive for congestion. Negative for ear pain, sinus pain and sore throat. Eyes: Negative for photophobia and visual disturbance. Respiratory: Positive for cough and shortness of breath. Cardiovascular: Negative for chest pain, palpitations and leg swelling. Gastrointestinal: Negative for abdominal pain, diarrhea, nausea and vomiting. Genitourinary: Negative for difficulty urinating, dysuria and frequency. Musculoskeletal: Negative for myalgias and neck pain. Skin: Negative for rash and wound. Neurological: Positive for dizziness. Negative for headaches. All other systems reviewed and are negative. Physical Exam Filed Vitals: 08/26/22 1624 08/26/22 1628 08/26/22 1633 08/26/22 1816 BP: 118/47 109/49 116/51 Pulse: (!) 52 (!) 51 73 (!) 52 Resp: 16 16 12 16 Temp: TempSrc: SpO2: 96% 98% 97% Weight: Height: Physical Exam Vitals and nursing note reviewed. Constitutional: Appearance: Normal appearance. She is not toxic-appearing. HENT: Head: Normocephalic and atraumatic. Right Ear: External ear normal. Left Ear: External ear normal. Nose: Nose normal. Mouth/Throat: Mouth: Mucous membranes are moist. Eyes: Conjunctiva/sclera: Conjunctivae normal. Cardiovascular: Rate and Rhythm: Normal rate and regular rhythm. Comments: Mechanical click from heart valve Pulmonary: Effort: Pulmonary effort is normal. Breath sounds: Normal breath sounds. Abdominal: General: Bowel sounds are normal. Palpations: Abdomen is soft. Tenderness: There is no abdominal tenderness. There is no guarding or rebound. Musculoskeletal: Cervical back: Normal range of motion. No rigidity. Right lower leg: No edema. Left lower leg: No edema. Skin: General: Skin is warm and dry. Capillary Refill: Capillary refill takes less than 2 seconds. Neurological: Mental Status: She is alert and oriented to person, place, and time. Diagnostic Studies / Procedures ELECTROCARDIOGRAMS: Results for orders placed or performed during the hospital encounter of 08/26/22 [address] [facility] Test Date: 2022-08-26 Pat Name: ANA MARIA BOBO Department: 85 Room: EXAM 303 Gender: Female [employer]: : 1945 Requested By: EDY CHANDLER Order Number: [id number] Reading MD: Measurements Intervals [place] Rate: 50 P: -40 CO: 198 QRS: -15 QRSD: 166 T: 105 QT: 496 QTc: 455 Interpretive Statements SINUS BRADYCARDIA WITH OCCASIONAL SUPRAVENTRICULAR PREMATURE COMPLEXES LEFT BUNDLE BRANCH BLOCK [120+ ms QRS DURATION, 80+ ms Q/S IN V1/V2, 85+ ms R IN I/aVL/V5/V6] Compared to ECG 03/18/2022 12:16:43 Sinus rhythm no longer present LABORATORY STUDIES: Results for orders placed or performed during the hospital encounter of 08/26/22 CBC W/DIFF AUTOMATED Result Value Ref Range WBC 5.85 4.4 - 11.0 x10'3/uL RBC 3.42 (L) 4.50 - 5.10 x10'6/uL HGB 11.4 (L) 12.3 - 15.3 G/DL HCT 35.9 35.9 - 44.6 % MCV 105.0 (H) 80.0 - 96.0 FL MCH 33.3 (H) 25.3 - 30.9 PG MCHC 31.8 31.0 - 34.1 G/DL RDW 12.3 (L) 12.4 - 15.1 % PLT 245 151 - 353 x10'3/uL MPV 12.5 (H) 9.6 - 12.0 FL RBC MORPHOLOGY NORMAL PLT MORPH. NORMAL WBC MORPHOLOGY NORMAL LYMPHOCYTES 21.5 15.8 - 45.0 % NEUTROPHILS 63.8 42.1 - 71.9 % MONOCYTES 10.1 5.7 - 12.5 % EOSINOPHILS 3.1 0.0 - 5.6 % BASOPHILS 1.2 0.0 - 1.3 % ABS. NEUTROPHILS 3.73 1.40 - 6.00 x10'3/uL IMMATURE GRANS 0.3 0.0 - 0.5 % ABS. LYMPHOCYTES 1.26 0.80 - 4.70 x10'3/uL COMPREHENSIVE METABOLIC PANEL Result Value Ref Range GLUCOSE 195 (H) 70 - 99 MG/DL BUN 55 (H) 7 - 18 MG/DL CREATININE S/P/B 2.44 (H) 0.55 - 1.02 MG/DL SODIUM S/P/B 136 136 - 145 MMOL/L POTASSIUM S/P/B 4.1 3.5 - 5.1 MMOL/L CHLORIDE S/P/B 100 100 - 108 MMOL/L CO2 28.8 21 - 32 MMOL/L CALCIUM S/P/B 10.6 (H) 8.5 - 10.1 MG/DL BILIRUBIN TOTAL S/P/B 0.3 0.2 - 1.2 MG/DL TOTAL PROTEIN S/P/B 7.0 6.4 - 8.2 G/DL ALBUMIN S/P/B 3.3 (L) 3.4 - 5.0 G/DL AST 18 15 - 37 U/L ALT 16 14 - 55 U/L ALKALINE PHOSPHATASE S/P/B 73 50 - 136 U/L ANION GAP 7.2 5 - 15 MMOL/L BUN CREATININE RATIO 22.5 6 - 26 A/G RATIO 0.9 (L) 1.0 - 2.0 RATIO GFR ESTIMATE 20 (L) >90 ML/MIN/1.73 M2 TROPONIN, QUANT Result Value Ref Range TROPONIN I HIGH SENSITIVITY 21 <51 ng/L LIPASE Result Value Ref Range LIPASE 90 (H) 16 - 77 UNITS/L LACTIC ACID Result Value Ref Range LACTIC ACID 1.2 0.4 - 2.0 MMOL/L MAGNESIUM Result Value Ref Range MAGNESIUM 1.9 1.8 - 2.4 MG/DL URINALYSIS, AUTO, COMPLETE Result Value Ref Range COLOR (U) YELLOW TRANSPARENCY HAZY SPECIFIC GRAVITY (U) <1.005 1.000 - 1.030 U PH 5.0 5.0 - 9.0 LEUKOCYTES (U) 2+ (A) NEGATIVE NITRITES NEGATIVE NEGATIVE PROTEIN (U) NEGATIVE NEGATIVE GLUCOSE (U) NEGATIVE NEGATIVE KETONES (U) NEGATIVE NEGATIVE BILIRUBIN (U) NEGATIVE NEGATIVE BLOOD (U) NEGATIVE NEGATIVE WBC/HPF 10-25 0 - 5 /HPF RBC/HPF 0-5 0 - 5 /HPF EPI/HPF MODERATE /HPF CULTURE & SENSITIVITY INDICATED? SPECIMEN SETUP FOR CULTURE BACTERIA (U) MODERATE /HPF URINE MESSER FEW TSH W/REFLEX Result Value Ref Range TSH 1.277 0.358 - 3.74 uIU/ML CORONAVIRUS (COVID-19) ANTIGEN [RAPID IN HOUSE TEST] Specimen: NASAL Result Value Ref Range CORONAVIRUS ANTIGEN IA NEGATIVE NEGATIVE Specimen Type NASAL IMAGING STUDIES XR CHEST PORTABLE Final Result by User, [id number] (08/26 163) Date: 08/26/2022 4:20 PM Exam: XR CHEST PORTABLE Comparison: Chest radiography dated 04/17/2022, the . Technique: Single view chest. History: Fatigue, shortness of breath and congestion. Findings: There are median sternotomy wires from prior open heart surgery. There is evidence of valve replacement. The cardiac silhouette is enlarged. There is central vascular congestion. The left costophrenic sulcus is obscured possibly due to atelectasis or infiltrate. The lungs are otherwise clear. There is no pneumothorax. There is calcified disease in the thoracic aorta. There are multilevel degenerative changes in the spine. Impression: 1. Cardiomegaly and slight central vascular congestion. 2. Mild indistinct left basilar atelectasis or infiltrate. Ordered By: EDY CHANDLER Interpreted By: José Avalos Jr, MD, 08/26/2022 4:32 PM ED Course / Medical Decision Making Medical Decision Making 77-year-old female presenting from her primary care office with concern for hypotension. Patient's blood pressure here is 135/50. Pulse is 71. She denies any complaints other than cough and congestion. She states her dizziness and shortness of breath have been going on for a long time and are not changed. Concern for possible dehydration, electrolyte imbalance, ACS, arrhythmia, pneumonia, UTI, sepsis. Amount and/or Complexity of Data Reviewed Independent Historian: friend External Data Reviewed: Details: Attempted to review labs from primary care office today but unable to view results Labs: ordered. Decision-making details documented in ED Course. Radiology: ordered. Decision-making details documented in ED Course. ECG/medicine tests: ordered and independent interpretation performed. Decision- making details documented in ED Course. Risk Prescription drug management. Decision regarding hospitalization. ED Course as of 08/26/221817Aug 26, 2022 1615 EKG shows sinus bradycardia with occasional supraventricular premature complexes. Ventricular rate 50 bpm. Left bundle branch block. CO interval is 198 ms, QRS duration 166 ms, QTc [address] segment elevation or depression noted. T wave inversion in the high lateral leads. [GJ] 1703 Orthostatic vital signs were positive as patient became symptomatic with standing. [GJ] 1704 CREATININE S/P/B(!): 2.44 Creatinine elevated at 2.44 with baseline of 1.2. Likely dehydration with OLIVE [GJ] 1704 CBC W/DIFF AUTOMATED(!) No leukocytosis. Hgb stable at 11.4 [GJ] 1704 TROPONIN, QUANT Troponin unremarkable [GJ] 1704 CORONAVIRUS (COVID-19) ANTIGEN [RAPID IN HOUSE TEST] Covid negative [GJ] 1704 TSH W/REFLEX TSH WNL [GJ] 1704 MAGNESIUM Normal magnesium [GJ] 1705 XR CHEST PORTABLE 1. Cardiomegaly and slight central vascular congestion. 2. Mild indistinct left basilar atelectasis or infiltrate. [GJ] 1800 Chest x-ray with a possible infiltrate versus atelectasis, however the patient does not have any leukocytosis and has been afebrile with normal lactic acid and pulse ox of 98% on RA. Will start rocephin and azithromycin for concern for pneumonia as she has been having cough. [GJ] 1813 URINALYSIS, AUTO, COMPLETE(!) Urinalysis with 10-25 WBC and 2+ LE. Rocephin has already been ordered and should cover for UTI [GJ] 1817 Patient does not meet SIRS criteria [GJ] 1817 Dr Villa has accepted patient for admission. Patient is comfortable with admission [GJ] ED Course User Index [GJ] Edy Chandler MD Clinical Impression Acute kidney injury (CMS/HCC) (Primary) Orthostatic hypotension Pneumonia due to infectious organism, unspecified laterality, unspecified part of lung Acute cystitis without hematuria Disposition: Admit Edy Chandler MD 08/26/221817 Edy Chandler MD 08/26/228 * Elysia Garcia RN - 08/26/2022 3:56 PM CDT Pt was seen in PCPs office today for weakness and cough for 4 days. At the office, pt was hypotensive in the 70s/80s. documented in this encounter Plan of Treatment Upcoming Encounters Date Type Department Care Team (Late st Contact Info) Description 04/14/2024 2:00 PM [employer] Office Visit [facility] Multispecialty Care - [facility] [address] [facility], [address] [place] [address] Julio Pulido MD [address] [place] [address] documented as of this encounter Goals Goal Patient Goal Type Associated Problems Recent Progress Patient-Stated? Author Health - patient able to perform ADLs independently General On track(2023 9:49 AM CDT) Dianne Corona RN Note: 12/17/23: Patient stated she is independent with ASL's. Establish Plan for Symptom Monitoring-CHF General On track(2023 11:36 AM JUNCTION MAKER) Dianne Corona RN Note: Patient will [...] Symptom Monitoring-COPD General On track(2023 11:36 AM JUNCTION MAKER) Dianne Corona RN Note: Patient will [...] Symptom Monitoring-DM General On track(2023 4:33 PM JUNCTION MAKER) Dianne Corona RN Note: Patient will [...] Symptom Monitoring-HTN General On track(2023 4:33 PM JUNCTION [employer]ER) Dianne Corona RN Note: Patient will monitor [...] Associated Diagnosis Comments PROTHROMBIN TIME, VENOUS Routine 08/29/2022 6:35 AM CDT BASIC METABOLIC PANEL Routine 08/29/2022 6:35 AM CDT CBC W/DIFF AUTOMATED Routine 08/29/2022 6:35 AM CDT PROCALCITONIN (PCT) Routine 08/28/2022 5 :55 AM CDT PROTHROMBIN TIME, VENOUS Routine 08/28/2022 5:55 AM CDT BASIC METABOLIC PANEL Routine 08/28/2022 5:55 AM CDT CBC W/DIFF AUTOMATED Routine 08/28/2022 5:55 AM CDT VITAMIN B12 / FOLATE Routine 08/27/2022 6:10 AM CDT IRON SAT PANEL (IRON,IBC,%SAT) Routine 08/27/2022 6:10 AM CDT PROTHROMBIN TIME, VENOUS Routine 08/27/2022 6:10 AM CDT BASIC METABOLIC PANEL Routine 08/27/2022 6:10 AM CDT CBC W/DIFF AUTOMATED Routine 08/27/2022 6:10 AM CDT URINE BACTERIA CULTURE Routine 5:52 PM CDT URINALYSIS, AUTO, COMPLETE STAT 08/26/2022 5:49 PM CDT CULTURE, BACTERIA, BLOOD STAT 08/26/2022 4:40 PM CDT XR CHEST PORTABLE STAT 08/26/2022 4:2 9 PM CDT CORONAVIRUS (COVID-19) ANTIGEN DIRECT OPTICAL STAT 08/26/2022 4:24 PM CDT PROCALCITONIN (PCT) Routine 08/26/2022 4 :23 PM CDT TROPONIN, QUANT STAT 08/26/2022 4:23 PM CDT TSH W/REFLEX STAT 08/26/2022 4:21 PM CDT COMPREHENSIVE METABOLIC PANEL STAT 08/26/2022 4:21 PM CDT LACTIC ACID STAT 08/26/2022 4:21 PM CDT CULTURE, BACTERIA, BLOOD STAT 08/26/2022 4:21 PM CDT CBC W/DIFF AUTOMATED STAT 08/26/2022 4:21 PM CDT MAGNESIUM STAT 08/26/2022 4:21 PM CDT LIPASE STAT 08/26/2022 4:21 PM CDT ECG 12-LEAD Routine 08/26/2022 4:11 PM CDT documented in this encounter Results * (ABNORMAL) PROTIME/INR, VENOUS (08/29/2022 6:35 AM CDT) PROTIME 27.2(H) 9.1 - 12.4 SEC 08/29/2022 8:22 AM CDT [facility] INR 2.4 08/29/2022 8:22 AM CDT [facility] Comment: Recommend INR ranges for Oral Anticoagulant Therapy: Mechanical Cardiac Values 2.5-3.5 All others indication 2.0-3.0 08/29/2022 6:35 AM CDT Lina Hurley NP LABORATORY Final Result [facility] [address] [place] [address], * (ABNORMAL) CBC W/DIFF AUTOMATED (08/29/2022 6:35 AM CDT) [facility] Signature WBC 4.81 4.4 - 11.0 x10'3/uL 08/29/2022 7:02 AM CDT [facility] RBC 2.67(L) 4.50 - 5.10 x10'6/uL 08/29/2022 7:02 AM CDT [facility] HGB 8.8(L) 12.3 - 15.3 G/DL 08/29/2022 7:02 AM CDT [facility] HCT 27.9(L) 35.9 - 44.6 % 08/29/2022 7:02 AM CDT [facility] MCV 104.5(H) 80.0 - 96.0 FL 08/29/2022 7:02 AM CDT [facility] MCH 33.0(H) 25.3 - 30.9 PG 08/29/2022 7:02 AM CDT [facility] MCHC 31.5 31.0 - 34.1 G/DL 08/29/2022 7:02 AM CDT [facility] RDW 12.1(L) 12.4 - 15.1 % 08/29/2022 7:02 AM CDT [facility] PLT 188 151 - 353 x10'3/uL 08/29/2022 7:02 AM CDT [facility] MPV 12.3(H) 9.6 - 12.0 FL 08/29/2022 7:02 AM CDT [facility] RBC MORPHOLOGY NORMAL 08/29/2022 7:02 AM CDT [facility] PLT MORPH. NORMAL 08/29/2022 7:02 AM CDT [facility] WBC MORPHOLOGY NORMAL 08/29/2022 7:02 AM CDT [facility] LYMPHOCYTES % 33.1 15.8 - 45.0 % 08/29/2022 7:02 AM CDT [facility] NEUTROPHILS % 50.3 42.1 - 71.9 % 08/29/2022 7:02 AM CDT [facility] MONOCYTES % 11.0 5.7 - 12.5 % 08/29/2022 7:02 AM CDT [facility] EOSINOPHILS 4.0 0.0 - 5.6 % 08/29/2022 7:02 AM CDT [facility] BASOPHILS 1.2 0.0 - 1.3 % 08/29/2022 7:02 AM CDT [facility] ABS. NEUTROPHILS 2.42 1.40 - 6.00 x10'3/uL 08/29/2022 7:02 AM CDT [facility] IMMATURE GRANS % 0.4 0.0 - 0.5 % 08/29/2022 7:02 AM CDT [facility] ABS. LYMPHOCYTES 1.59 0.80 - 4.70 x10'3/uL 08/29/2022 7:02 AM CDT [facility] 08/29/2022 6:35 AM CDT us Lina Hurley NP LABORATORY Final Result [facility] [address] [place] [address], * (ABNORMAL) BASIC METABOLIC PANEL (08/29/2022 6:35 AM CDT) Pathologist [facility] [place] GLUCOSE 74 70 - 99 MG/DL 08/29/2022 9:19 AM [facility] BUN 22(H) 7 - 18 MG/DL 08/29/2022 9:19 AM [facility] CREATININE S/P/B 0.99 0.55 - 1.02 MG/DL 08/29/2022 9:19 AM [facility] SODIUM S/P/B 146(H) 136 - 145 MMOL/L 08/29/2022 9:19 AM [facility] POTASSIUM S/P/B 4.7 3.5 - 5.1 MMOL/L 08/29/2022 9:19 AM [facility] CHLORIDE S/P/B 115(H) 100 - 108 MMOL/L 08/29/2022 9:19 AM [facility] CO2 22.8 21 - 32 MMOL/L 08/29/2022 9:19 AM [facility] CALCIUM S/P/B 10.4(H) 8.5 - 10.1 MG/DL 08/29/2022 9:19 AM [facility] ANION GAP 8.2 5 - 15 MMOL/L 08/29/2022 9:19 AM [facility] BUN CREATININE RATIO 22.2 6 - 26 08/29/2022 9:19 AM [facility] GFR ESTIMATE 58(L) >90 ML/MIN/1.7 3 M2 08/29/2022 9:19 AM [facility] Comment: NOTE: eGFR is not calculated for patients <18 years of age. This is an estimated GFR calculation using the new CKD EPI creatinine equation without race and so does not require a correction factor for race. This estimated GFR should not be used for calculating drug doses. 08/29/2022 6:35 AM CDT Jose Villa MD LABORATORY Final Result Performing Organization Address [facility] Co de Phone Number [facility] [address] [place] [address], * (ABNORMAL) PROTIME/INR, VENOUS (08/28/2022 5:55 AM CDT) PROTIME 38.7(H) 9.1 - 12.4 SEC 08/28/2022 8:50 AM CDT [facility] INR 3.5 08/28/2022 8:50 AM CDT [facility] Comment: Recommend INR ranges for Oral Anticoagulant Therapy: Mechanical Cardiac Values 2.5-3.5 All others indication 2.0-3.0 08/28/2022 5:55 AM CDT Lina Hurley NP LABORATORY Final Result Performing Organization Address [facility] Co de Phone Number [facility] [address] [place] [address], * PROCALCITONIN (PCT) (08/28/2022 5:55 AM CDT) Procalcitonin <0.05 0.00 - 0.25 NG/ML 08/28/2022 7:59 AM CDT [facility] Comment: PROCALCITONIN INTERPRETATION GUIDELINES LOWER RESPIRATORY TRACT INFECTIONS (LRTI): USE OF PCT IN INPATIENT OR EMERGENCY SITUATION INITIATION OF ANTIBIOTICS PCT VALUE ? INTERPRETATION <0.10 NG/ML ?ANTIBIOTIC THERAPY ? STRONGLY DISCOURAGED. 0.10-0.25 NG/ML ?ANTIBIOTIC THERAPY ? DISCOURAGED. 0.26-0.50 NG/ML ?ANTIBIOTIC THERAPY ? ENCOURAGED. >0.50 NG/ML ?ANTIBIOTIC THERAPY ? STRONGLY ENCOURAGED. DISCONTINUE ANTIBIOTICS PCT LESS THAN OR EQUAL TO 0.25 NG/ML OR DELTA PCT >80 PERCENT DELTA PCT= PCT(PEAK)-PCT(CURRENT)/PCT(PEAK)X100% STUDIES HAVE EVALUATED PCT PROTOCOLS IN THESE PATIENTS AND FOUND THAT FOR PATIENTS WHO ARE CLINICALLY STABLE AND ARE TREATED AT THE ED OR ARE HOSPITALIZED, THE INITIATION OF ANTIBIOTIC THERAPY SHOULD BE BASED ON CLINICAL GROUNDS AND A PCT VALUE OF GREATER THAN OR EQUAL TO 0.26 NG/ML. IF PCT REMAINS LOWER, ANTIBIOTICS CAN BE WITHHELD AND PATIENTS CAN BE REASSESSED CLINICALLY WITHOUT SAFETY CONCERNS. IF PATIENTS ARE CLINICALLY STABLE, AN ALTERNATIVE DIAGNOSIS SHOULD BE CONSIDERED. IF PATIENTS ARE UNSTABLE, THEN ANTIBIOTICS MAY BE CONSIDERED. IF PATIENTS DO NOT IMPROVE IN THE SHORT FOLLOW UP PERIOD OF 6 TO 12 HOURS, CLINICAL RE-EVALUATION AND RE-MEASUREMENT OF PCT IS RECOMMENDED. 08/28/2022 5:55 AM CDT Lina Hurley NP LABORATORY Final Result [facility] [address] [place] [address], * (ABNORMAL) CBC W/DIFF AUTOMATED (08/28/2022 5:55 AM CDT) [facility] WBC 4.31(L) 4.4 - 11.0 x10'3/uL 08/28/2022 7:26 AM CDT [facility] RBC 2.79(L) 4.50 - 5.10 x10'6/uL 08/28/2022 7:26 AM CDT [facility] HGB 9.2(L) 12.3 - 15.3 G/DL 08/28/2022 7:26 AM CDT [facility] HCT 29.5(L) 35.9 - 44.6 % 08/28/2022 7:26 AM CDT [facility] MCV 105.7(H) 80.0 - 96.0 FL 08/28/2022 7:26 AM CDT [facility] MCH 33.0(H) 25.3 - 30.9 PG 08/28/2022 7:26 AM CDT [facility] MCHC 31.2 31.0 - 34.1 G/DL 08/28/2022 7:26 AM CDT [facility] RDW 12.3(L) 12.4 - 15.1 % 08/28/2022 7:26 AM T [facility] PLT 195 151 - 353 x10'3/uL 08/28/2022 7:26 AM T [facility] MPV 12.8(H) 9.6 - 12.0 FL 08/28/2022 7:26 AM T [facility] RBC MORPHOLOGY NORMAL 08/28/2022 7:26 AM T [facility] PLT MORPH. NORMAL 08/28/2022 7:26 AM T [facility] WBC MORPHOLOGY NORMAL 08/28/2022 7:26 AM T [facility] LYMPHOCYTES % 37.4 15.8 - 45.0 % 08/28/2022 7:26 AM T [facility] NEUTROPHILS % 44.6 42.1 - 71.9 % 08/28/2022 7:26 AM CDT [facility] MONOCYTES % 11.1 5.7 - 12.5 % 08/28/2022 7:26 AM T [facility] EOSINOPHILS 5.3 0.0 - 5.6 % 08/28/2022 7:26 AM CDT [facility] BASOPHILS 1.4(H) 0.0 - 1.3 % 08/28/2022 7:26 AM CDT [facility] ABS. NEUTROPHILS 1.92 1.40 - 6.00 x10'3/uL 08/28/2022 7:26 AM CDT [facility] IMMATURE GRANS % 0.2 0.0 - 0.5 % 08/28/2022 7:26 AM CDT [facility] ABS. LYMPHOCYTES 1.61 0.80 - 4.70 x10'3/uL 08/28/2022 7:26 AM CDT [facility] 08/28/2022 5:55 AM CDT Lina Hurley NP LABORATORY Final Result [facility] [address] [place] [address], * (ABNORMAL) BASIC METABOLIC PANEL (08/28/2022 5:55 AM CDT) GLUCOSE 75 70 - 99 MG/DL 08/28/2022 7:26 AM CDT [facility] BUN 29(H) 7 - 18 MG/DL 08/28/2022 7:26 AM CDT [facility] CREATININE S/P/B 1.15(H) 0.55 - 1.02 MG/DL 08/28/2022 7:26 AM CDT [facility] SODIUM S/P/B 144 136 - 145 MMOL/L 08/28/2022 7:26 AM CDT [facility] POTASSIUM S/P/B 4.8 3.5 - 5.1 MMOL/L 08/28/2022 7:26 AM CDT [facility] CHLORIDE S/P/B 112(H) 100 - 108 MMOL/L 08/28/2022 7:26 AM CDT [facility] CO2 23.4 21 - 32 MMOL/L 08/28/2022 7:26 AM CDT [facility] CALCIUM S/P/B 10.1 8.5 - 10.1 MG/DL 08/28/2022 7:26 AM CDT [facility] ANION GAP 8.6 5 - 15 MMOL/L 08/28/2022 7:26 AM CDT [facility] BUN CREATININE RATIO 25.2 6 - 26 08/28/2022 7:26 AM CDT [facility] GFR ESTIMATE 49(L) >90 ML/MIN/1.7 3 M2 08/28/2022 7:26 AM CDT [facility] Comment: NOTE: eGFR is not calculated for patients <18 years of age. This is an estimated GFR calculation using the new CKD EPI creatinine equation without race and so does not require a correction factor for race. This estimated GFR should not be used for calculating drug doses. 08/28/2022 5:55 AM CDT Jose Villa MD LABORATORY Final Result [facility] [address] [place] [address], * (ABNORMAL) PROTIME/INR, VENOUS (08/27/2022 6:10 AM CDT) PROTIME 33.7(H) 9.1 - 12.4 SEC 08/27/2022 7:20 AM CDT [facility] INR 3.0 08/27/2022 7:20 AM CDT [facility] Comment: Recommend INR ranges for Oral Anticoagulant Therapy: Mechanical Cardiac Values 2.5-3.5 All others indication 2.0-3.0 08/27/2022 6:10 AM CDT us Jose Villa MD LABORATORY Final Result Performing Organization Address [facility]/ZIP Co de Phone Number [facility] [address] [place] [address], [place] [phone] * VITAMIN B12 / FOLATE (08/27/2022 6:10 AM CDT) VITAMIN B12 S/P/B 416 193 - 986 PG/ML 08/27/2022 7:30 AM CDT [facility] FOLATE 14.0 8.6 - 58.9 NG/ML 08/27/2022 7:30 AM CDT [facility] 08/27/2022 6:10 AM CDT us Jose Villa MD LABORATORY Final Result Performing Organization Address [facility] Co de Phone Number [facility] [address] [place] [address], [place] [phone] * (ABNORMAL) IRON SAT PANEL (IRON,IBC,%SAT) (08/27/2022 6:10 AM CDT) IRON 33(L) 50 - 170 MCG/DL 08/27/2022 7:03 AM CDT [facility] IRON BINDING CAPACITY 233(L) 250 - 450 MCG/DL 08/27/2022 7:03 AM CDT [facility] IRON SATURATION 14(L) 20 - 55 % 7:03 AM CDT [facility] 08/27/2022 6:10 AM CDT us Jose Villa MD LABORATORY Final Result Performing Organization Address City/[facility] Co de Phone Number [facility] [address] [place] [address], [place] [phone] * (ABNORMAL) BASIC METABOLIC PANEL (08/27/2022 6:10 AM CDT) [facility] GLUCOSE 81 70 - 99 MG/DL 08/27/2022 7:30 AM [facility] BUN 46(H) 7 - 18 MG/DL 08/27/2022 7:30 AM [facility] CREATININE S/P/B 1.58(H) 0.55 - 1.02 MG/DL 08/27/2022 7:30 AM [facility] SODIUM S/P/B 143 136 - 145 MMOL/L 08/27/2022 7:30 AM [facility] POTASSIUM S/P/B 4.4 3.5 - 5.1 MMOL/L 08/27/2022 7:30 AM [facility] CHLORIDE S/P/B 110(H) 100 - 108 MMOL/L 08/27/2022 7:30 AM [facility] CO2 25.6 21 - 32 MMOL/L 08/27/2022 7:30 AM [facility] CALCIUM S/P/B 10.0 8.5 - 10.1 MG/DL 08/27/2022 7:30 AM [facility] ANION GAP 7.4 5 - 15 MMOL/L 08/27/2022 7:30 AM [facility] BUN CREATININE RATIO 29.1(H) 6 - 26 08/27/2022 7:30 AM [facility] GFR ESTIMATE 33(L) >90 ML/MIN/1.7 3 M2 08/27/2022 7:30 AM [facility] Comment: NOTE: eGFR is not calculated for patients <18 years of age. This is an estimated GFR calculation using the new CKD EPI creatinine equation without race and so does not require a correction factor for race. This estimated GFR should not be used for calculating drug doses. 08/27/2022 6:10 AM CDT us Jose Villa MD LABORATORY Final Result [facility] [address] [place] [address], [place] [phone] * (ABNORMAL) CBC W/DIFF AUTOMATED (08/27/2022 6:10 AM CDT) WBC 4.63 4.4 - 11.0 x10'3/uL 08/27/2022 6:43 AM CDT [facility] RBC 3.08(L) 4.50 - 5.10 x10'6/uL 08/27/2022 6:43 AM CDT [facility] HGB 10.3(L) 12.3 - 15.3 G/DL 08/27/2022 6:43 AM CDT [facility] HCT 31.9(L) 35.9 - 44.6 % 08/27/2022 6:43 AM CDT [facility] MCV 103.6(H) 80.0 - 96.0 FL 08/27/2022 6:43 AM CDT [facility] MCH 33.4(H) 25.3 - 30.9 PG 08/27/2022 6:43 AM CDT [facility] MCHC 32.3 31.0 - 34.1 G/DL 08/27/2022 6:43 AM CDT [facility] RDW 12.0(L) 12.4 - 15.1 % 08/27/2022 6:43 AM CDT [facility] PLT 211 151 - 353 x10'3/uL 08/27/2022 6:43 AM CDT [facility] MPV 12.7(H) 9.6 - 12.0 FL 08/27/2022 6:43 AM CDT [facility] RBC MORPHOLOGY NORMAL 08/27/2022 6:43 AM CDT [facility] PLT MORPH. NORMAL 08/27/2022 6:43 AM CDT [facility] WBC MORPHOLOGY NORMAL 08/27/2022 6:43 AM CDT [facility] LYMPHOCYTES % 34.8 15.8 - 45.0 % 08/27/2022 6:43 AM CDT [facility] NEUTROPHILS % 47.1 42.1 - 71.9 % 08/27/2022 6:43 AM CDT [facility] MONOCYTES % 12.5 5.7 - 12.5 % 08/27/2022 6:43 AM CDT [facility] EOSINOPHILS 4.3 0.0 - 5.6 % 08/27/2022 6:43 AM CDT [facility] BASOPHILS 1.1 0.0 - 1.3 % 08/27/2022 6:43 AM CDT [facility] ABS. NEUTROPHILS 2.18 1.40 - 6.00 x10'3/uL 08/27/2022 6:43 AM CDT [facility] IMMATURE GRANS % 0.2 0.0 - 0.5 % 08/27/2022 6:43 AM CDT [facility] ABS. LYMPHOCYTES 1.61 0.80 - 4.70 x10'3/uL 08/27/2022 6:43 AM CDT [facility] 08/27/2022 6:10 AM CDT us Jose Villa MD LABORATORY Final Result [facility] [address] [place] [address], [place] [phone] * CULTURE URINE (08/26/2022 5:52 PM CDT) SPEC DESCRIPTION URINE CLEAN CATCH 08/26/2022 6:06 PM CDT [facility] SPECIAL REQUESTS NO SPECIAL REQUEST 08/26/2022 6:06 PM CDT [facility] CULTURE RESULT POLYMICROBIAL GROWTH CONSISTENT WITH NORMAL GENITAL BETTY. ?? SUSCEPTIBILITIES NOT ROUTINELY PERFORMED. 08/28/2022 8:30 AM CDT [facility] URINE SPECIMEN OBTAINED BY CLEAN CATCH PROCEDURE / Unknown 08/26/2022 5:52 PM CDT 08/26/2022 6:06 PM CDT us Edy Chandler MD MICROBIOLOGY - GENERAL ORD ERABLES Final Result [facility] [address] [place] [address], [place] [phone] [facility] [address] [place] [address], [place] [phone] * (ABNORMAL) URINALYSIS, AUTO, COMPLETE (08/26/2022 5:49 PM CDT) COLOR (U) YELLOW 08/26/2022 6:09 PM CDT [facility] TRANSPARENCY HAZY 08/26/2022 6:09 PM CDT [facility] SPECIFIC GRAVITY (U) <1.005 1.000 - 1.030 08/26/2022 6:09 PM CDT [facility] U PH 5.0 5.0 - 9.0 08/26/2022 6:09 PM CDT [facility] LEUKOCYTES (U) 2+(A) NEGATIVE 08/26/2022 6:09 PM CDT [facility] NITRITES NEGATIVE NEGATIVE 08/26/2022 6:09 PM CDT [facility] PROTEIN (U) NEGATIVE NEGATIVE 08/26/2022 6:09 PM CDT [facility] GLUCOSE (U) NEGATIVE NEGATIVE 08/26/2022 6:09 PM CDT [facility] KETONES MG/DL (U) NEGATIVE NEGATIVE 08/26/2022 6:09 PM T [facility] BILIRUBIN (U) NEGATIVE NEGATIVE 08/26/2022 6:09 PM CDT [facility] BLOOD (U) NEGATIVE NEGATIVE 08/26/2022 6:09 PM CDT [facility] WBC/HPF 10-25 0 - 5 /HPF 08/26/2022 6:09 PM CDT [facility] RBC/HPF 0-5 0 - 5 /HPF 08/26/2022 6:09 PM T [facility] EPI/HPF MODERATE /HPF 08/26/2022 6:09 PM T [facility] CULTURE & SENSITIVITY INDICATED? SPECIMEN SETUP FOR CULTURE 08/26/2022 6:09 PM CDT [facility] BACTERIA (U) MODERATE /HPF 08/26/2022 6:09 PM T [facility] URINE MESSER FEW 08/26/2022 6:09 PM T [facility] Comment:MUCOUS URINE SPECIMEN OBTAINED BY CLEAN CATCH PROCEDURE / Unknown 08/26/2022 5:49 PM CDT us Edy Chandler MD URINE ORDERABLES Final Res ult [facility] [id number] [place] [address], [place] [phone] * CULTURE, BACTERIA, BLOOD (08/26/2022 4:40 PM CDT) SPEC DESCRIPTION BLOOD 08/26/2022 4:05 PM CDT [facility] SPECIAL REQUESTS NO SPECIAL REQUEST 08/26/2022 4:05 PM CDT [facility] CULTURE RESULT NO GROWTH 5 DAYS 08/31/2022 1:01 AM CDT [facility] BLOOD SPECIMEN OBTAINED FOR BLOOD CULTURE / Unknown 08/26/2022 4:40 PM CDT 08/26/2022 4:49 PM CDT us Edy Chandler MD MICROBIOLOGY - GENERAL ORD ERABLES Final Result [facility] [address] [place] [address], * XR CHEST PORTABLE (08/26/2022 4:29 PM CDT) Anatomical Region Laterality Modality Chest Radiographic Jennifer ging 08/26/2022 4:32 PM CDT Impressions 08/26/2022 4:33 PM CDT Impression: 1. Cardiomegaly and slight central vascular congestion. 2. Mild indistinct left basilar atelectasis or infiltrate. Ordered By: EDY CHANDLER Interpreted By: José Avalos Jr, MD, 08/26/2022 4:32 PM Narrative 08/26/2022 4:33 PM CDT Date: 08/26/2022 4:20 PM Exam: XR CHEST PORTABLE Comparison: Chest radiography dated 04/17/2022. Technique: Single view chest. History: Fatigue, shortness of breath and congestion. Findings: There are median sternotomy wires from prior open heart surgery. There is evidence of valve replacement. The cardiac silhouette is enlarged. There is central vascular congestion. The left costophrenic sulcus is obscured possibly due to atelectasis or infiltrate. The lungs are otherwise clear. There is no pneumothorax. There is calcified disease in the thoracic aorta. There are multilevel degenerative changes in the spine. Procedure Note José Avalos MD - 08/26/2022 Date: 08/26/2022 4:20 PM Exam: XR CHEST PORTABLE Comparison: Chest radiography dated 04/17/2022, . Technique: Single view chest. History: Fatigue, shortness of breath and congestion. Findings: There are median sternotomy wires from prior open heart surgery.There is evidence of valve replacement. The cardiac silhouette isenlarged. There is central vascular congestion. The left costophrenicsulcus is obscured possibly due to atelectasis or infiltrate. The lungsare otherwise clear. There is no pneumothorax. There is calcified diseasein the thoracic aorta. There are multilevel degenerative changes in thespine. Impression: 1. Cardiomegaly and slight central vascular congestion. 2. Mild indistinct left basilar atelectasis or infiltrate. Ordered By: EDY CHANDLER Interpreted By: José Avalos Jr, MD, 08/26/2022 4:32 PM Edy Chandler MD GENERAL IMAGING Final Resu lt * CORONAVIRUS (COVID-19) ANTIGEN [RAPID IN HOUSE TEST] (08/26/2022 4:24 PM CDT) CORONAVIRUS ANTIGEN IA NEGATIVE NEGATIVE 08/26/2022 4:56 PM CDT [facility] Comment: NEGATIVE RESULTS DO NOT RULE OUT SARS-COV-2 INFECTION AND SHOULD NOT BE USED THE SOLE BASIS FOR TREATMENT OR PATIENT MANAGEMENT DECISIONS, INCLUDING INFECTION CONTROL DECISIONS. NEGATIVE RESULTS SHOULD BE CONSIDERED IN THE CONTEXT OF A PATIENT'S RECENT EXPOSURES, HISTORY AND THE PRESENCE OF CLINICAL SIGNS AND SYMPTOMS CONSISTENT WITH COVID 19. THIS TEST HAS BEEN AUTHORIZED BY THE FDA UNDER AN EMERGENCY USE AUTHORIZATION (EUA) FOR USE BY AUTHORIZED LABORATORIES. SPECIMEN TYPE NASAL 08/26/2022 4:24 PM CDT [facility] NASAL NASAL STRUCTURE / Unknown 08/26/2022 4:24 PM CDT Edy Chandler MD MICROBIOLOGY - GENERAL ORD ERABLES Final Result [facility] [id number] [place] [address], * PROCALCITONIN (PCT) (08/26/2022 4:23 PM CDT) Procalcitonin <0.05 0.00 - 0.25 NG/ML 08/26/2022 8:55 PM CDT [facility] Comment: PROCALCITONIN INTERPRETATION GUIDELINES LOWER RESPIRATORY TRACT INFECTIONS (LRTI): USE OF PCT IN INPATIENT OR EMERGENCY SITUATION INITIATION OF ANTIBIOTICS PCT VALUE ? INTERPRETATION <0.10 NG/ML ?ANTIBIOTIC THERAPY ? STRONGLY DISCOURAGED. 0.10-0.25 NG/ML ?ANTIBIOTIC THERAPY ? DISCOURAGED. 0.26-0.50 NG/ML ?ANTIBIOTIC THERAPY ? ENCOURAGED. >0.50 NG/ML ?ANTIBIOTIC THERAPY ? STRONGLY ENCOURAGED. DISCONTINUE ANTIBIOTICS PCT LESS THAN OR EQUAL TO 0.25 NG/ML OR DELTA PCT >80 PERCENT DELTA PCT= PCT(PEAK)-PCT(CURRENT)/PCT(PEAK)X100% STUDIES HAVE EVALUATED PCT PROTOCOLS IN THESE PATIENTS AND FOUND THAT FOR PATIENTS WHO ARE CLINICALLY STABLE AND ARE TREATED AT THE ED OR ARE HOSPITALIZED, THE INITIATION OF ANTIBIOTIC THERAPY SHOULD BE BASED ON CLINICAL GROUNDS AND A PCT VALUE OF GREATER THAN OR EQUAL TO 0.26 NG/ML. IF PCT REMAINS LOWER, ANTIBIOTICS CAN BE WITHHELD AND PATIENTS CAN BE REASSESSED CLINICALLY WITHOUT SAFETY CONCERNS. IF PATIENTS ARE CLINICALLY STABLE, AN ALTERNATIVE DIAGNOSIS SHOULD BE CONSIDERED. IF PATIENTS ARE UNSTABLE, THEN ANTIBIOTICS MAY BE CONSIDERED. IF PATIENTS DO NOT IMPROVE IN THE SHORT FOLLOW UP PERIOD OF 6 TO 12 HOURS, CLINICAL RE-EVALUATION AND RE-MEASUREMENT OF PCT IS RECOMMENDED. 08/26/2022 4:23 PM CDT Jose Villa MD LABORATORY Final Result Performing Organization Address [facility] Co de Phone Number [facility] [address] [place] [address], [place] [phone] * TROPONIN, QUANT (08/26/2022 4:23 PM CDT) TROPONIN I HIGH SENSITIVITY 21 <51 ng/L 08/26/2022 4:55 PM CDT [facility] Comment: HIGH DOSES OF BIOTIN, TROPONIN-SPECIFIC AUTOANTIBODIES, AND ANTIBODY THERAPY CONTAINING HAMA MAY INTERFERE WITH THIS TEST RESULT. CORRELATION TO CLINICAL HISTORY AND PRESENTATION RECOMMENDED. 08/26/2022 4:23 PM CDT Edy Chandler MD LABORATORY Final Resu lt Performing Organization Address [facility] Co de Phone Number [facility] [address] [place] [address], [place] [phone] * LACTIC ACID (08/26/2022 4:21 PM CDT) LACTIC ACID VENOUS 1.2 0.4 - 2.0 MMOL/L 08/26/2022 4:53 PM CDT [facility] 08/26/2022 4:21 PM CDT Edy Chandler MD LABORATORY Final Resu lt Performing Organization Address [facility] Co de Phone Number [facility] [address] [place] [address], [place] [phone] * CULTURE, BACTERIA, BLOOD (08/26/2022 4:21 PM CDT) SPEC DESCRIPTION BLOOD 08/26/2022 4:05 PM CDT [facility] SPECIAL REQUESTS NO SPECIAL REQUEST 08/26/2022 4:05 PM CDT [facility] CULTURE RESULT NO GROWTH 5 DAYS 08/31/2022 1:01 AM CDT [facility] BLOOD SPECIMEN OBTAINED FOR BLOOD CULTURE / Unknown 08/26/2022 4:21 PM CDT 08/26/2022 4:49 PM CDT Edy Chandler MD MICROBIOLOGY - GENERAL ORD ERABLES Final Result Performing Organization Address [facility]/ZIP Co de Phone Number [facility] [address] [place] [address], * TSH W/REFLEX (08/26/2022 4:21 PM CDT) TSH 1.277 0.358 - 3.74 uIU/ML 08/26/2022 4:58 PM CDT [facility] Comment: HIGH DOSES OF BIOTIN MAY INTERFERE WITH THIS TEST RESULT. CORRELATION TO CLINICAL HISTORY AND PRESENTATION RECOMMENDED. FREE T4 NOT INDICATED 08/26/2022 4:21 PM CDT Edy Chandler MD LABORATORY Final Resu lt Performing Organization Address City/[facility]/ZIP Co de Phone Number [facility] [address] [place] [address], * MAGNESIUM (08/26/2022 4:21 PM CDT) MAGNESIUM 1.9 1.8 - 2.4 MG/DL 08/26/2022 4:58 PM CDT [facility] 08/26/2022 4:21 PM CDT Edy Chandler MD LABORATORY Final Resu lt Performing Organization Address City/[facility]/ZIP Co de Phone Number [facility] [address] [place] [address], [place] [phone] * (ABNORMAL) LIPASE (08/26/2022 4:21 PM CDT) LIPASE 90(H) 16 - 77 UNITS/L 08/26/2022 4:58 PM CDT [facility] Comment: PLEASE NOTE: NEW LIPASE REFERENCE RANGE, EFFECTIVE 07/01/2022 NEW REFERENCE RANGE 16-77 U/L 08/26/2022 4:21 PM CDT Edy Chandler MD LABORATORY Final Resu lt Performing Organization Address [facility]/ZIP Co de Phone Number [facility] [address] [place] [address], [place] [phone] * (ABNORMAL) COMPREHENSIVE METABOLIC PANEL (08/26/2022 4:21 PM CDT) GLUCOSE 195(H) 70 - 99 MG/DL 08/26/2022 4:58 PM CDT [facility] BUN 55(H) 7 - 18 MG/DL 08/26/2022 4:58 PM CDT [facility] CREATININE S/P/B 2.44(H) 0.55 - 1.02 MG/DL 08/26/2022 4:58 PM CDT [facility] SODIUM S/P/B 136 136 - 145 MMOL/L 08/26/2022 4:58 PM CDT [facility] POTASSIUM S/P/B 4.1 3.5 - 5.1 MMOL/L 08/26/2022 4:58 PM [facility] CHLORIDE S/P/B 100 100 - 108 MMOL/L 08/26/2022 4:58 PM [facility] CO2 28.8 21 - 32 MMOL/L 08/26/2022 4:58 PM [facility] CALCIUM S/P/B 10.6(H) 8.5 - 10.1 MG/DL 08/26/2022 4:58 PM [facility] BILIRUBIN TOTAL S/P/B 0.3 0.2 - 1.2 MG/DL 08/26/2022 4:58 PM [facility] TOTAL PROTEIN S/P/B 7.0 6.4 - 8.2 G/DL 08/26/2022 4:58 PM [facility] ALBUMIN S/P/B 3.3(L) 3.4 - 5.0 G/DL 08/26/2022 4:58 PM [facility] AST 18 15 - 37 U/L 08/26/2022 4:58 PM [facility] ALT 16 14 - 55 U/L 08/26/2022 4:58 PM [facility] ALKALINE PHOSPHATASE S/P/B 73 50 - 136 U/L 08/26/2022 4:58 PM [facility] ANION GAP 7.2 5 - 15 MMOL/L 08/26/2022 4:58 PM [facility] BUN CREATININE RATIO 22.5 6 - 26 08/26/2022 4:58 PM [facility] A/G RATIO 0.9(L) 1.0 - 2.0 RATIO 08/26/2022 4:58 PM [facility] GFR ESTIMATE 20(L) >90 ML/MIN/1.7 3 M2 08/26/2022 4:58 PM CDT [facility] Comment: NOTE: eGFR is not calculated for patients <18 years of age. This is an estimated GFR calculation using the new CKD EPI creatinine equation without race and so does not require a correction factor for race. This estimated GFR should not be used for calculating drug doses. 08/26/2022 4:21 PM CDT us Edy Chandler MD LABORATORY Final Resu lt [facility] [address] [place] [address], [place] [phone] * (ABNORMAL) CBC W/DIFF AUTOMATED (08/26/2022 4:21 PM CDT) WBC 5.85 4.4 - 11.0 x10'3/uL 08/26/2022 4:36 PM CDT [facility] RBC 3.42(L) 4.50 - 5.10 x10'6/uL 08/26/2022 4:36 PM CDT [facility] HGB 11.4(L) 12.3 - 15.3 G/DL 08/26/2022 4:36 PM CDT [facility] HCT 35.9 35.9 - 44.6 % 08/26/2022 4:36 PM CDT [facility] MCV 105.0(H) 80.0 - 96.0 FL 08/26/2022 4:36 PM CDT [facility] MCH 33.3(H) 25.3 - 30.9 PG 08/26/2022 4:36 PM CDT [facility] MCHC 31.8 31.0 - 34.1 G/DL 08/26/2022 4:36 PM CDT [facility] RDW 12.3(L) 12.4 - 15.1 % 08/26/2022 4:36 PM CDT [facility] PLT 245 151 - 353 x10'3/uL 08/26/2022 4:36 PM T [facility] MPV 12.5(H) 9.6 - 12.0 FL 08/26/2022 4:36 PM CDT [facility] RBC MORPHOLOGY NORMAL 08/26/2022 4:36 PM T [facility] PLT MORPH. NORMAL 08/26/2022 4:36 PM CDT [facility] WBC MORPHOLOGY NORMAL 08/26/2022 4:36 PM T [facility] LYMPHOCYTES % 21.5 15.8 - 45.0 % 08/26/2022 4:36 PM CDT [facility] NEUTROPHILS % 63.8 42.1 - 71.9 % 08/26/2022 4:36 PM CDT [facility] MONOCYTES % 10.1 5.7 - 12.5 % 08/26/2022 4:36 PM CDT [facility] EOSINOPHILS 3.1 0.0 - 5.6 % 08/26/2022 4:36 PM T [facility] BASOPHILS 1.2 0.0 - 1.3 % 08/26/2022 4:36 PM T [facility] ABS. NEUTROPHILS 3.73 1.40 - 6.00 x10'3/uL 08/26/2022 4:36 PM T [facility] IMMATURE GRANS % 0.3 0.0 - 0.5 % 08/26/2022 4:36 PM T [facility] ABS. LYMPHOCYTES 1.26 0.80 - 4.70 x10'3/uL 08/26/2022 4:36 PM T [facility] 08/26/2022 4:21 PM CDT us Edy Chandler MD LABORATORY Final Resu lt [facility] [address] [place] [address], * ECG 12 lead (08/26/2022 4:11 PM CDT) 08/26/2022 4:11 PM CDT Narrative [facility] ([facility]) RAD - 08/27/2022 9:01 AM CDT ?[facility] [place] ? Test Date: ?2022-08-26 Pat Name: ? ANA MARIA BOBO ?Department: ?? 85 ? Room: ? 107 Gender: ? Female ? [employer]: ?? : ?1945 ? Requested By: EDY CHANDLER Order Number: [id number] ? Sweetie WOODARD: ?? Chon Wyman ? Measurements Intervals ?[place] ? Rate: ? 50 ? P: ?-40 CO: ? 198 ?QRS: ?-15 QRSD: ? 166 ?T: ?105 QT: ? 496 ? QTc: ?455 ? Interpretive Statements SINUS BRADYCARDIA WITH OCCASIONAL SUPRAVENTRICULAR PREMATURE COMPLEXES LEFT BUNDLE BRANCH BLOCK ??[120+ ms QRS DURATION, 80+ ms Q/S IN V1/V2, 85+ ms R IN I/aVL/V5/V6] Compared to ECG 03/18/2022 12:16:43 Sinus rhythm no longer present Procedure Note Chon Wyman MD - 08/27/2022 [facility] Test Date: 2022-08-26 Pat Name: ANA MARIA BOBO Department: 85 Room: 107 Gender: Female [employer]: : 1945 Requested By: EDY CHANDLER Order Number: [id number] Sweetie MD: Chon Wyman Measurements Intervals [place] Rate: 50 P: -40 CO: 198 QRS: -15 QRSD: 166 T: 105 QT: 496 QTc: 455 Interpretive Statements SINUS BRADYCARDIA WITH OCCASIONAL SUPRAVENTRICULAR PREMATURE COMPLEXES LEFT BUNDLE BRANCH BLOCK [120+ ms QRS DURATION, 80+ ms Q/S IN V1/V2, 85+ms R IN I/aVL/V5/V6] Compared to ECG 03/18/2022 12:16:43 Sinus rhythm no longer present us Edy Chandler MD ECG ORDERABLES Final Resu lt [facility] ([facility]) RAD documented in this encounter Visit Diagnoses Diagnosis OLIVE (acute kidney injury) ([facility])- Primary Acute kidney failure, unspecified Acute kidney injury ([facility]) Acute kidney failure, unspecified Orthostatic hypotension Pneumonia due to infectious organism, unspecified laterality, unspecified part of lung Acute cystitis without hematuria Acute cystitis Chronic heart failure with preserved ejection fraction (HFpEF) ([facility]) OLIVE (acute kidney injury) ([facility]) Acute kidney failure, unspecified Hypertension associated with type 2 diabetes mellitus ([facility]) documented in this encounter Admitting Diagnoses Diagnosis OLIVE (acute kidney injury) ([facility]) Acute kidney failure, unspecified documented in this encounter Administered Medications Inactive Administered Medications - up to 3 most recent administrations Medication Order MAR Action Action Date Dose Rate Site acetaminophen (TYLENOL) tablet 650 mg 650 mg, Oral, Every 6 hours PRN, Mild pain (Scale 1 - 3), Starting on Thu08/26/22 at 2018, Until Thu08/29/22 at 1431, Maximum dose of acetaminophen is 4000 mg from all sources in 24 hours. Given 08/28/2022 10:10 AM CDT 650 mg Given 08/26/2022 9:07 PM CDT 650 mg ALPRAZolam (XANAX) tablet 0.25 mg 0.25 mg, Oral, Nightly PRN, Anxiety, Starting on Thu08/26/22 at 2014, Until Thu08/29/22 at 1431 Given 08/28/2022 11:07 PM CDT 0.25 mg Given 08/27/2022 9:03 PM CDT 0.25 mg Given 08/26/2022 9:08 PM CDT 0.25 mg azithromycin (ZITHROMAX) 500 mg in sodium chloride 0.9 % 250 mL IVPB 500 mg, Intravenous, at 250 mL/hr, Once, 1 dose, On Thu08/26/22 at 1815 New Bag 08/26/2022 6:13 PM CDT 500 mg 250 mL/hr cefTRIAXone (ROCEPHIN) 1 g in sterile water 10 mL IV 1 g, Intravenous, at 120 mL/hr, Once, 1 dose, On Thu08/26/22 at 1815 Given 08/26/2022 6:13 PM CDT 1 g 120 mL/hr cefTRIAXone (ROCEPHIN) 1 g in sterile water 10 mL IV 1 g, Intravenous, at 120 mL/hr, Every 24 hours, First dose on Thu08/27/22 at 1800, Until Discontinued Given 08/27/2022 5:39 PM CDT 1 g 120 mL/hr ferrous sulfate (65 mg elemental) tablet 325 mg 325 mg (1 tablet), Oral, Daily with breakfast, First dose on Thu08/27/22 at 0800, Until Discontinued, Administer 2 hours prior to or 4 hours after antacids. Ferrous Sulfate 324 and 325 mg tablets contain 65 mg elemental iron. Therapeutic interchange for all OTC iron supplements Given 08/29/2022 9:11 AM CDT 325 mg Given 08/28/2022 10:12 AM CDT 325 mg Given 08/27/2022 9:14 AM CDT 325 mg gabapentin (NEURONTIN) capsule 300 mg 300 mg, Oral, 3 times daily, First dose on Thu08/26/22 at 2100, Until Discontinued Given 08/29/2022 9:11 AM CDT 300 mg Given 08/28/2022 9:07 PM CDT 300 mg Given 08/28/2022 5:25 PM CDT 300 mg HYDROcodone-acetaminophen (NORCO) 10-325 MG tablet 1 tablet 1 tablet, Oral, Every 6 hours PRN, Moderate pain (Scale 4 - 7), Starting on Thu08/26/22 at 2014, Until Thu08/29/22 at 1431, Maximum dose of acetaminophen is 4000 mg from all sources in 24 hours.Do not take with alprazolam.Indications:Chronic Pain Given 08/29/2022 9:11 AM CDT 1 tablet Given 08/29/2022 2:44 AM CDT 1 tablet Given 08/28/2022 5:25 PM CDT 1 tablet methIMAzole (TAPAZOLE) tablet 10 mg 10 mg, Oral, Daily, First dose on Thu08/26/22 at 2045, Until Discontinued, HAZARDOUS MEDICATION: wear single chemotherapy approved gloves. Do not open or split. If crushing, use approved closed-system crushing device for hazardous medications. Given 08/29/2022 9:11 AM CDT 10 mg Given 08/28/2022 10:12 AM CDT 10 mg Given 08/27/2022 9:14 AM CDT 10 mg metoprolol tartrate (LOPRESSOR) tablet 12.5 mg 12.5 mg, Oral, 2 times daily, First dose on Thu08/26/22 at 2100, Until Discontinued, Hold if SBP<100 Given 08/29/2022 9:11 AM CDT 12.5 mg Given 08/27/2022 9:02 PM CDT 12.5 mg Given 08/27/2022 9:14 AM CDT 12.5 mg ondansetron (ZOFRAN) injection 4 mg 4 mg, Intravenous, Every 6 hours PRN, Nausea, Vomiting, Starting on Thu08/26/22 at 2011, Until Thu08/29/22 at 1431, IV push over 2-5 minutes. pantoprazole EC (PROTONIX) tablet 20 mg 20 mg, Oral, Daily, First dose on Thu08/26/22 at 2045, Until Discontinued, Do not break, chew, or crush. Given 08/29/2022 9:11 AM CDT 20 mg Given 08/28/2022 10:12 AM CDT 20 mg Given 08/27/2022 9:14 AM CDT 20 mg Senna (SENOKOT) 8.6 MG tablet 8.6 mg 8.6 mg, Oral, Daily as needed, Constipation, Starting on Thu08/26/22 at 2011, Until Thu08/29/22 at 1431, If both senna and polyethylene glycol are ordered, use as 2nd choice. sodium chloride 0.9% bolus infusion 1,000 mL 1,000 mL, Intravenous, Administer over 60 Minutes, Once, 1 dose, On 6/20/23 at 1615 New Bag 08/26/2022 4:44 PM CDT 1,000 mLs sodium chloride 0.9% bolus infusion 250 mL 250 mL, Intravenous, Administer over 15 Minutes, Once, 1 dose, On Thu08/27/22 at 0945 08/27/2022 10:04 AM CDT 250 mLs sodium chloride 0.9% bolus infusion 250 mL 250 mL, Intravenous, Administer over 15 Minutes, Once, 1 dose, On Thu08/28/22 at 1500 08/28/2022 3:58 PM CDT 250 mLs sodium chloride 0.9% infusion at 75 mL/hr, Intravenous, Continuous, Starting on Thu08/26/22 at 2030, Until Thu08/29/22 at 1006 08/29/2022 3:56 AM CDT 75 mL/hr 08/28/2022 5:27 PM CDT 75 mL/hr 08/28/2022 12:38 AM CDT 75 mL/hr venlafaxine XR (EFFEXOR-XR) 24 hr capsule 150 mg 150 mg, Oral, Daily, First dose on Thu08/27/22 at 0900, Until Discontinued, Swallow capsule whole or it may be opened and the contents sprinkled on applesauce. Given 08/29/2022 9:11 AM CDT 150 mg Given 08/28/2022 10:12 AM CDT 150 mg Given 08/27/2022 9:14 AM CDT 150 mg warfarin (COUMADIN) pharmacy to dose placeholder Oral, See admin instructions, Starting on Thu08/27/22 at 1200, Until Thu08/29/22 at 1431, Warfarin Placeholder Only: Do NOT document administrations on this placeholder. (Use medication on MAY to document administrations or contact pharmacy if medication order not entered.) warfarin (COUMADIN) tablet 1 mg 1 mg, Oral, Daily, First dose on Thu08/26/22 at 2045, Until Discontinued, HAZARDOUS MEDICATION: wear single chemotherapy approved gloves. Do not open or split. If crushing, use approved closed-system crushing device for hazardous medications. Given 08/26/2022 9:06 PM CDT 1 mg warfarin (COUMADIN) tablet 1 mg 1 mg, Oral, Once, 1 dose, On Thu08/27/22 at 1700, HAZARDOUS MEDICATION: wear single chemotherapy approved gloves. Do not open or split. If crushing, use approved closed-system crushing device for hazardous medications. Given 08/27/2022 4:15 PM CDT 1 mg warfarin (COUMADIN) tablet 6 mg 6 mg, Oral, Daily, First dose on Thu08/26/22 at 2045, Until Discontinued, HAZARDOUS MEDICATION: wear single chemotherapy approved gloves. Do not open or split. If crushing, use approved closed-system crushing device for hazardous medications. Given 08/26/2022 9:08 PM CDT 6 mg warfarin (COUMADIN) tablet 7 mg 7 mg, Oral, Once, 1 dose, On Thu08/29/22 at 1700, HAZARDOUS MEDICATION: wear single chemotherapy approved gloves. Do not open or split. If crushing, use approved closed-system crushing device for hazardous medications. documented in this encounter Active and Recently Administered Medications Times are shown in CDT. Scheduled Medication Order 08/27/2022 08/28/2022 08/29/2022 cefTRIAXone (ROCEPHIN) 1 g in sterile water 10 mL IV (CANCELED) 1 g, Intravenous, at 120 mL/hr, Every 24 hours, First dose on Thu08/27/22 at 1800, Until Discontinued 173 (Given - Provider: Indiana Mcgowan RN) ferrous sulfate (65 mg elemental) tablet 325 mg 325 mg (1 tablet), Oral, Daily with breakfast, First dose on Thu08/27/22 at 0800, Until Discontinued, Administer 2 hours prior to or 4 hours after antacids. Ferrous Sulfate 324 and 325 mg tablets contain 65 mg elemental iron. Therapeutic interchange for all OTC iron supplements 09 (Given - Provider: [place] Mcgowan RN) 1012 (Given - Provider: Stephania Leal RN) 0911 (Given - Provider: Maddison Bolden LPN) gabapentin (NEURONTIN) capsule 300 mg 300 mg, Oral, 3 times daily, First dose on Thu08/26/22 at 2100, Until Discontinued 0914 (Given - Provider: Indiana Mcgowan RN)1615 (Given - Provider: [place] Mcgowan RN)210 (Given - Provider: Indiana Gunderson RN) 1012 (Given - Provider: Stephania Leal RN)1725 (Given - Provider: Wendy Urias RN)210 (Given - Provider: Tana Gomez RN-LP) 0911 (Given - Provider: Maddison Bolden LPN) methIMAzole (TAPAZOLE) tablet 10 mg 10 mg, Oral, Daily, First dose on Thu08/26/22 at 2045, Until Discontinued, HAZARDOUS MEDICATION: wear single chemotherapy approved gloves. Do not open or split. If crushing, use approved closed-system crushing device for hazardous medications. 0914 (Given - Provider: Indiana Mcgowan RN) 1012 (Given - Provider: Stephania Leal RN) 0911 (Given - Provider: Maddison Bolden LPN) metoprolol tartrate (LOPRESSOR) tablet 12.5 mg 12.5 mg, Oral, 2 times daily, First dose on Thu08/26/22 at 2100, Until Discontinued, Hold if SBP<100 0914 (Given - Provider: Indiana Mcgowan RN)210 (Given - Provider: Indiana Gunderson RN) 1013 (Not Given - Provider: Stephania Leal RN - Reason: Order parameters not met - Comment: [phone] (Not Given - Provider: Tana Gomez RN- - Reason: Order parameters not met) 0911 (Given - Provider: Maddison Bolden LPN) pantoprazole EC (PROTONIX) tablet 20 mg 20 mg, Oral, Daily, First dose on Thu08/26/22 at 2044, Until Discontinued, Do not break, chew, or crush. 0914 (Given - Provider: Indiana Mcgowan RN) 1012 (Given - Provider: Stephania Leal RN) 0911 (Given - Provider: Maddison Bolden LPN) sodium chloride 0.9% bolus infusion 250 mL (COMPLETED) 250 mL, Intravenous, Administer over 15 Minutes, Once, 1 dose, On Thu08/27/22 at 0945 1004 (New Bag - Provider: Indiana Mcgowan RN)1020 (Infusion Stop Time - Provider: Indiana Mcgowan RN) sodium chloride 0.9% bolus infusion 250 mL (COMPLETED) 250 mL, Intravenous, Administer over 15 Minutes, Once, 1 dose, On Thu08/28/22 at 1500 1558 (New Bag - Provider: Stephania Leal RN)1726 (Infusion Stop Time - Provider: Wendy Urias RN) venlafaxine XR (EFFEXOR-XR) 24 hr capsule 150 mg 150 mg, Oral, Daily, First dose on Thu08/27/22 at 0900, Until Discontinued, Swallow capsule whole or it may be opened and the contents sprinkled on applesauce. 0914 (Given - Provider: Indiana Mcgowan RN) 1012 (Given - Provider: Stephania Leal RN) 0911 (Given - Provider: Maddison Bolden LPN) warfarin (COUMADIN) pharmacy to dose placeholder(Linked Group 1) Oral, See admin instructions, Starting on Thu08/27/22 at 1200, Until Thu08/29/22 at 1431, Warfarin Placeholder Only: Do NOT document administrations on this placeholder. (Use medication on MAY to document administrations or contact pharmacy if medication order not entered.) warfarin (COUMADIN) tablet 1 mg (COMPLETED) 1 mg, Oral, Once, 1 dose, On Thu08/27/22 at 1700, HAZARDOUS MEDICATION: wear single chemotherapy approved gloves. Do not open or split. If crushing, use approved closed-system crushing device for hazardous medications. 1615 (Given - Provider: Indiana Mcgowan RN) warfarin (COUMADIN) tablet 7 mg 7 mg, Oral, Once, 1 dose, On Thu08/29/22 at 1700, HAZARDOUS MEDICATION: wear single chemotherapy approved gloves. Do not open or split. If crushing, use approved closed-system crushing device for hazardous medications. Continuous Medication Order 08/27/2022 08/28/2022 08/29/2022 sodium chloride 0.9% infusion (CANCELED) at 75 mL/hr, Intravenous, Continuous, Starting on Thu08/26/22 at 2030, Until Thu08/29/22 at 1006 0037 (Infusion Stop Time - Provider: Indiana Gunderson RN)0038 (New Bag - Provider: [place] Gunderson RN)1727 (New Bag - Provider: Wendy Urias RN) 0356 (New Bag - Provider: Tana Gomez RN-ALEXIS)1203 (Infusion Stop Time - Provider: Maddison Bolden LPN) PRN Medication Order 08/27/2022 08/28/2022 08/29/2022 acetaminophen (TYLENOL) tablet 650 mg 650 mg, Oral, Every 6 hours PRN, Mild pain (Scale 1 - 3), Starting on Thu08/26/22 at 2018, Until Thu08/29/22 at 1431, Maximum dose of acetaminophen is 4000 mg from all sources in 24 hours. 1010 (Given - Provider: Stephania Leal RN) albuterol sulfate HFA 108 (90 Base) MCG/ACT inhaler 2 puff 2 puff, Inhalation, Every 6 hours PRN, Wheezing, Starting on Thu08/26/22 at 2012, Until Thu08/29/22 at 1431 ALPRAZolam (XANAX) tablet 0.25 mg 0.25 mg, Oral, Nightly PRN, Anxiety, Starting on Thu08/26/22 at 2013, Until Thu08/29/22 at 1431 2103 (Given - Provider: Indiana Gunderson RN) 2307 (Given - Provider: Tana Gomez RN-ALEXIS) HYDROcodone-acetaminophe n (NORCO) 10-325 MG tablet 1 tablet 1 tablet, Oral, Every 6 hours PRN, Moderate pain (Scale 4 - 7), Starting on Thu08/26/22 at 2013, Until Thu08/29/22 at 1431, Maximum dose of acetaminophen is 4000 mg from all sources in 24 hours.Do not take with alprazolam. 0919 (Given - Provider: Indiana Mcgowan RN)1743 (Given - Provider: Indiana Mcgowan RN) 0552 (Given - Provider: Indiana Gunderson RN)1725 (Given - Provider: Wendy Urias RN) 0244 (Given - Provider: Tana Gomez RN-ALEXIS)0911 (Given - Provider: Maddison Bolden LPN) ondansetron (ZOFRAN) injection 4 mg 4 mg, Intravenous, Every 6 hours PRN, Nausea, Vomiting, Starting on Thu08/26/22 at 2011, Until Thu08/29/22 at 1431, IV push over 2-5 minutes. Senna (SENOKOT) 8.6 MG tablet 8.6 mg 8.6 mg, Oral, Daily as needed, Constipation, Starting on Thu08/26/22 at 2011, Until Thu08/29/22 at 1431, If both senna and polyethylene glycol are ordered, use as 2nd choice. Linked Groups Order Group 1: Pharmacy to dose warfarin (COUMADIN) (CANCELED) Routine, Once, On Thu08/27/22 at 1201, For 1 occurrence, [facility]R? 2-3 And warfarin (COUMADIN) pharmacy to dose placeholderJump to med Oral, See admin instructions, Starting on Thu08/27/22 at 1200, Until Thu08/29/22 at 1431, Warfarin Placeholder Only: Do NOT document administrations on this placeholder. (Use medication on MAY to document administrations or contact pharmacy if medication order not entered.) documented in this encounter Additional Health Concerns Infection Onset Date Last Indicated Resolved Time COVID-19 Rule Out 08/26/2022 08/26/2022 08/26/2022 4:56 PM CDT Assessment Noted Time PHQ-9 Depression Total Score: 3 12/24/19 22 11:48 AM CDT documented as of this encounter Care Teams Student Affairs Vice President Relationship Specialty Start Date End Date Sanjeev Webster DO [address] [place] [address] PCP - General FAMILY PRACTICE 09/25/20 Dianne Johnson, RN [address] [place] [address] Drying Machine Tender (Ambulatory) REGISTERED NURSE 08/14/20 documented as of this encounter
--- OUTSIDE RECORDS SUMMARY | 2024-03-15 00:59 | XMS_ITS | Encounter Summary ---
Author Organization [facility] Address [address] [facility] [place] [address] [place] [address] Care Team Providers Care Supervisor Microfilm Duplicating Unit Name Role Phone Dianne Johnson RN Unavailable [phone] Sanjeev Webster DO Primary Care Provider + Encounter Details Date Type Department Care Team (Latest Contact Info) Description 07/07/2022 Travel Social History Tobacco Use Types Packs/Day [...] suspected to have Coronavirus/COVID-19? No / Unsure 07/07/2022 9:13 AM CDT documented as of this encounter [...] st Contact Info) Description 04/14/2024 2:00 PM ALTERATIONS TAILOR Office Visit [facility] Multispecialty Care - [facility] [address] [facility], [address] [place] [address] Julio Pulido MD [address] [place] [address] documented as of this encounter Goals Goal Patient Goal Type Associated Problems Recent Progress Patient-Stated? Author Health - patient able to perform ADLs independently General On track(2023 9:49 AM CDT) Dianne Corona, RN Note: 12/17/23: Patient stated she is independent with ASL's. Establish Plan for Symptom Monitoring-CHF General On track(2023 11:36 AM ALTERATIONS TAILOR) Dianne Corona, RN Note: Patient will recognize [...] Symptom Monitoring-COPD General On track(2023 11:36 AM ALTERATIONS TAILOR) Dianne Corona, RN Note: Patient will recognize [...] Symptom Monitoring-DM General On track(2023 4:33 PM ALTERATIONS TAILOR) Dianne Corona, RN Note: Patient will manage [...] Symptom Monitoring-HTN General On track(2023 4:33 PM ALTERATIONS TAILOR) Dianne Corona, RN Note: Patient will monitor [...] as of this encounter Care Teams Supervisor Microfilm Duplicating Unit Relationship Specialty Start Date End Date Sanjeev Webster DO [address] [place] [id number] PCP - General FAMILY PRACTICE 09/25/20 Dianne Johnson, RN [address] [place] [address] Hedis Nurse (Ambulatory) REGISTERED NURSE 08/14/20 documented as of this encounter
--- OUTSIDE RECORDS SUMMARY | 2024-03-15 00:59 | XMS_ITS | Encounter Summary ---
Author Organization [facility] Address [address] [facility] [place] [address] [place] [address] Care Team Providers Care Manager Client Support Name Role Phone Casey Johnson RN Unavailable Sanjeev Webster DO Primary Care Provider + Reason for Visit * Reason Onset Date Comments Care Management 07/09/2022 Encounter Details Date Type Department Care Team (Late st Contact Info) Description 07/09/2022 Patient Outreach [facility] Family & Internal Medicine [address] [address] Casey Johnson, RN [address] [place] [address] Care Management Social History Tobacco [...] in a senior living (including now)? No 04/03/2022 Comments No Sex [...] Progress Notes * Casey Johnson RN - 07/09/2022 8:36 AM CDT Chronic Care Management: Patient concerns or urgent matters that need addressed: Non identified during this call. Patient Status: Per request contacted 's office in [place] (Neurologist) to find out if patient has upcoming appointment. placed referral. Spoke to Ely at 's office. Stated patient is scheduled on 01/06/23 at 3:30 PM. is taking over all of 's patient's when he retires in August so she is booking out. CX list is full and Ely unable to place patient on CX list. 07/09/22: Contacted patient today to inform of appointment with . Dr.Srishti Sinclair [address] [facility] [address] [place] [address] . Appointment on 01/06/23 at 3:30 PM. Patient stated she is driving and on her way to [facility]. Informed patient that CC will call patient back later on today with appointment details. Patient verbalizes understanding. 07/09/22: Left message for patient to return phone call. 07/09/22: Contacted patient and gave her the above information. Patient stated Neurology office is supposed to send her paper work to fill out. She is requesting CC send her a letter with appointment details. Patient denies any issues with CHF or COPD exacerbation. Stated she is aware to contact CC at the onset of any changes or if she has a 3 lb weight gain over night. Encouraged patient to check weightsevery morning. Patient stated she is using albuterol inhaler twice a day due to pollen. Denies worsening sob or increased swelling. 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 Stated she needs someone for light house keeping again. She is requesting phone number. Informed patient to call [phone]. Patient verbalizes understanding. Patient stated since she stopped Rosuvastatin leg cramps are much better now. Patient had A1C checked on 07/07/22: 07/07/22 HGB A1C % 6.6 Last protime done on 06/25/22. According to note repeat PT/INR in 1 month. Patient is aware. B/P on 07/07/22: 112/60. Denies any issues at this time. Encouraged patient to contact CC at the onset of any changes. Patient verbalizes understanding. 07/09/22: Letter mailed to patient today with appointment details for upcoming appointment with Neurologist. Plan of Care: staff development coordinator will continue to follow up by [...] Future Appointments Date Time Provider Department Center 07/28/2022 2:20 PM [facility] NURSE [id number] 09/12/2022 11:00 AM Panda Moreno MD [facility] Quality care gaps: Health Maintenance Topic Date Due Kidney Health Evaluation Never done Annual Medicare Wellness Visit Never done Zoster Vaccines (1 of 2) 03/31/2023 (Originally 02/19/2016) COVID-19 Vaccine (5 - Booster for Pfizer series) 03/31/2023 (Originally 10/24/2021) Lipid Panel 08/29/2022 Hemoglobin A1C 01/07/2023 Diabetes: Retinopathy Eye Exam 04/21/2024 DTaP, Tdap and Td Vaccines (4 - Td or Tdap) 09/05/2030 DEXA SCAN (GENERAL) Completed Pneumococcal Vaccine: 65+ Years Completed Hepatitis C Completed Meningococcal Vaccine Aged Out Problem List: Patient Active Problem List Diagnosis Abnormal stress test Chronic anticoagulation Coronary artery disease involving pauma coronary artery of pauma heart without angina pectoris Dyspnea on exertion [...] hypertension with stage 3b chronic kidney disease ([facility]/HCC) Cobalamin deficiency Compression fracture of thoracic vertebra ([facility]) Depression Diabetic polyneuropathy ([facility]/HCC) Disorder of rotator cuff Diverticular disease Dysphagia Elevated troponin Gastroesophageal reflux disease without esophagitis Hyperlipidemia, unspecified hyperlipidemia type Vascular dementia ([facility]/HCC) Unknown and unspecified causes of morbidity Syncope, unspecified syncope type Senile purpura ([facility]) Wrist joint pain Respiratory illness Requires lifelong warfarin therapy Secondary hyperparathyroidism ([facility]/HCC) Presence of prosthetic heart valve Plantar fascial fibromatosis Peripheral neuropathy Parathyroid adenoma Polymyalgia rheumatica ([facility]/HCC) Osteoporosis Numbness Muscle cramps Closed stable burst fracture of sixth thoracic vertebra, initial encounter ([facility]) Chest pain Contusion of scalp Knee pain Localized, primary osteoarthritis Osteoarthritis of knee Traumatic closed displaced fracture of distal end of radius Shoulder joint pain Hyperlipidemia associated with type 2 diabetes mellitus ([facility]) PVD (peripheral vascular disease) ([facility]) Hematoma Anxiety Diastolic heart failure ([facility]) Internal hemorrhoids Leukoencephalopathy Major depression single episode, in partial remission ([facility]) Metacarpal bone fracture Mitral valve disorder Purpura ([facility]) Peripheral arterial occlusive disease ([facility]) Primary osteoarthritis involving multiple joints Vision loss COPD (chronic obstructive pulmonary disease) ([facility]) Diarrhea Drug-induced constipation H/O mechanical aortic valve replacement Age-related osteoporosis with current pathological fracture Care Management Physical deconditioning Chronic heart failure with preserved ejection fraction (HFpEF) ([facility]) Paroxysmal atrial fibrillation ([facility]) Hypertension associated with type 2 diabetes mellitus ([facility]) Encounter for prophylactic measures, unspecified Graves' disease Cirrhosis of liver without ascites, unspecified hepatic cirrhosis type ([facility]) Stage 3b chronic kidney disease ([facility]) Medications: Current Outpatient Medications Medication Sig [...] spent with patient (minutes): 28 (Comment: Time spent with patient and 's office) Time spent performing chart review (minutes): 9 Total time (minutes): 37 CASEY JOHNSON RN I reviewed the patient's status and education provided by CASEY JOHNSON RN. I agree with the findings and recommendations made. Cosigned by Sanjeev Webster DO at 07/10/2022 3:49 PM CDT documented in this encounter Plan of Treatment Upcoming Encounters Date Type Department Care Team (Late st Contact Info) Description 04/14/2024 2:00 PM BIOLOGICAL SCIENCES PROFESSOR Office Visit [facility] Multispecialty Care - [facility] [address] [facility], [address] [place] [address] Julio Pulido MD [address] [place] [address] documented as of this encounter Goals Goal Patient Goal Type Associated Problems Recent Progress Patient-Stated? Author Health - patient able to perform ADLs independently General On track(2023 9:49 AM CDT) Casey Corona, DALE Note: 12/17/23: Patient stated she is independent with ASL's. Establish Plan for Symptom Monitoring-CHF General On track(2023 11:36 AM BIOLOGICAL SCIENCES PROFESSOR) Casey Corona, DALE Note: Patient will recognize [...] Symptom Monitoring-COPD General On track(2023 11:36 AM BIOLOGICAL SCIENCES PROFESSOR) Casey Corona, DALE Note: Patient will recognize [...] Symptom Monitoring-DM General On track(2023 4:33 PM BIOLOGICAL SCIENCES PROFESSOR) Casey Corona RN Note: Patient will manage [...] Symptom Monitoring-HTN General On track(2023 4:33 PM BIOLOGICAL SCIENCES PROFESSOR) Casey Corona RN Note: Patient will monitor [...] disease, without long-term current use of insulin ([facility])- Primary Chronic heart failure with preserved ejection fraction (HFpEF) ([facility]) COPD (chronic obstructive pulmonary disease) ([facility]/HCC) Chronic airway obstruction, not elsewhere classified documented in this encounter Additional Health Concerns Assessment Noted Time PHQ-9 Depression Total Score: 3 12/24/19 22 11:48 AM CDT documented as of this encounter Care Teams Manager Client Support Relationship Specialty Start Date End Date Sanjeev Webster DO [address] [place] [address] PCP - General FAMILY PRACTICE 09/25/20 Casey Johnson, RN [address] [place] [address] Administrative Secretary (Ambulatory) REGISTERED NURSE 08/14/20 documented as of this encounter
--- OUTSIDE RECORDS SUMMARY | 2024-03-15 00:59 | XMS_ITS | Encounter Summary ---
Author Organization [facility] Address [facility], [id number] [facility] [place] [address] [place] [address] Care Team Providers Care Physical Medicine Specialist Name Role Phone Dianne Johnson RN Unavailable [phone] Sanjeev Webster DO Primary Care Provider + Reason for Visit * Reason Comments Allied Health Visit INR Encounter Details Date Type Department Care Team (Latest Contact Info) Description 06/25/2022 2:00 PM CDT Allied Health/Nurse Visit [facility] Family & Internal Medicine [facility] [address] [place] [address] Sanjeev Webster DO [address] [place] [address] Allied Health Visit (INR/) Social History Tobacco Use Types Packs/Day Years [...] [place] [facility] (including now)? No 04/03/2022 Comments No Sex [...] Status Yes 11/05/2021 7:00 PM CDT Stephanie Rodirguez R N Active documented as of this encounter Mental Status * Because of a physical, mental, or emotional condition, do you have serious difficulty concentrating, remembering, or making decisions? Answer Entry Date Author Status No 11/05/2021 7:00 PM CDT Stephanie Rodriguez R N Active documented in this encounter Progress Notes * Yenifer Ingram MA - 06/25/2022 2:00 PM CDT Patient presents for INR. documented in this encounter Plan of Treatment Upcoming Encounters Date Type Department Care Team (Late st Contact Info) Description 04/14/2024 2:00 PM TRADING ASSISTANT Office Visit [facility] Multispecialty Care - [facility] [address] [facility], [address] [place] [address] Julio Pulido MD [address] [place] [address] documented as of this encounter Goals Goal Patient Goal Type Associated Problems Recent Progress Patient-Stated? Author Health - patient able to perform ADLs independently General On track(2023 9:49 AM CDT) Dianne Corona RN Note: 12/17/23: Patient stated she is independent with ASL's. Establish Plan for Symptom Monitoring-CHF General On track(2023 11:36 AM TRADING ASSISTANT) Dianne Corona RN Note: Patient will [...] Symptom Monitoring-COPD General On track(2023 11:36 AM TRADING ASSISTANT) Dianne Corona RN Note: Patient will [...] Symptom Monitoring-DM General On track(2023 4:33 PM TRADING ASSISTANT) Dianne Corona RN Note: Patient will [...] Symptom Monitoring-HTN General On track(2023 4:33 PM TRADING ASSISTANT) Dianne Corona RN Note: Patient will [...] Associated Diagnosis Comments PROTHROMBIN TIME, FINGERSTICK Routine 06/25/2022 Current use of anticoagulant therapy documented in this encounter Results * PROTIME/INR, FINGERSTICK (06/25/2022) INR WHOLE BLOOD 3.10 [facility] 06/25/2022 us Sanjeev Webster DO LABORATORY Final Re sult [facility] [address] [place] [address], documented in this encounter Visit Diagnoses Diagnosis Current use of anticoagulant therapy- Primary documented in this encounter Additional Health Concerns Assessment Noted Time PHQ-9 Depression Total Score: 3 12/24/19 22 11:48 AM CDT documented as of this encounter Care Teams Physical Medicine Specialist Relationship Specialty Start Date End Date Sanjeev Webster DO [address] [place] [address] PCP - General FAMILY PRACTICE 09/25/20 Dianne Johnson, RN [address] [place] [address] Brazer Assembler (Ambulatory) REGISTERED NURSE 08/14/20 documented as of this encounter
--- OUTSIDE RECORDS SUMMARY | 2024-03-15 00:59 | XMS_ITS | Encounter Summary ---
Author Organization [facility] Address [facility] [facility] [place] [address] [place] [address] Care Team Providers Care Magneto Repairer Name Role Phone Dianne Johnson RN Unavailable [phone] Sanjeev Webster DO Primary Care Provider + Reason for Visit * Reason Onset Date Comments Concerns 06/24/2022 Refill Request 06/24/2022 Encounter Details Date Type Department Care Team (Late st Contact Info) Description 06/24/2022 Telephone [facility] Family & Internal Medicine [address] [address] Sanjeev Webster DO [address] [place] [address] Concerns; Refill Request Social History Tobacco Use Types [...] slept in a prison (including now)? No 04/03/2022 Comments No Sex [...] Progress Notes * Yenifer Wolf MA - 06/25/2022 2:40 PM CDT Spoke with patient and informed her of the previous message. Patient states she will try to hold the iron to see if it improves. I call izzy and informed her as well. I LMOM for izzy and informed herto r/c if she has questions. * Yenifer Wolf MA - 06/25/2022 1:50 PM CDT LMOM for patient to return call * Sanjeev Webster DO - 06/25/2022 7:46 AM CDT Black stools are very common with iron. If she stops the iron and that resolves, that is the likelyculprit. Keep scheduled appointment at this time. * Yenifer Wolf MA - 06/24/2022 3:05 PM CDTAddended by: YENIFER WOLF on: 06/24/2022 03:05 PM Modules accepted: Orders * Yenifer Wolf MA - 06/24/2022 2:51 PM CDT Spoke with patient. Medication sent to pharmacy. Informed patient to stop rosuvastatin. LMOM for Izzy informing her as well per patient's request. The patient is scheduled for INR on 06/25/2022. The patient states she will switch back to the previous iron, however she is concerned about the black, tarry stools. She states she is also having incontinence with her bowels. She states her BM smells like sewer digger. Would you like to see patient sooner for this? * Sanjeev Webster DO - 06/24/2022 2:29 PM CDT 1. Can go back on ferrous sulfate if she tolerated better. Otherwise we'll have to refer her to hematology for infusions. 2. Can stop rosuvastatin to see if this helps. 3. Yes, obtain please. 4. OK to refill. 5. If she has this again, she should check her blood sugar. Have 3 meals a day. Monitor in the meantime. * Dianne Johnson RN - 06/24/2022 1:49 PM CDT Patient concerns or urgent matters [...] requesting refill for albuterol inhaler sent to [facility] pharmacy. 5. FYI: Patient c/o sob and dizziness yesterday stated for the first time. Stated she wasn't eating right yesterday and after she ate she felt better. She is not checking her BG. She walked some today and felt pretty good. Denies swelling, sob or dizziness today. documented in this encounter Plan of Treatment Upcoming Encounters Date Type Department Care Team (Late st Contact Info) Description 04/14/2024 2:00 PM QUAL RESEARCH MANAGER Office Visit [facility] Multispecialty Care - [facility] [address] [facility], [address] [place] [phone] Julio Pulido MD [address] [place] [address] documented as of this encounter Goals Goal Patient Goal Type Associated Problems Recent Progress Patient-Stated? Author Health - patient able to perform ADLs independently General On track(2023 9:49 AM CDT) Dianne Croona RN Note: 12/17/23: Patient stated she is independent with ASL's. Establish Plan for Symptom Monitoring-CHF General On track(2023 11:36 AM QUAL RESEARCH MANAGER) Dianne Corona RN Note: Patient will [...] Symptom Monitoring-COPD General On track(2023 11:36 AM QUAL RESEARCH MANAGER) Dianne Corona RN Note: Patient will [...] Symptom Monitoring-DM General On track(2023 4:33 PM QUAL RESEARCH MANAGER) Dianne Corona RN Note: Patient will [...] Symptom Monitoring-HTN General On track(2023 4:33 PM QUAL RESEARCH MANAGER) Dianne Corona RN Note: Patient will [...] obstructive pulmonary disease, unspecified COPD type (CMS/HCC [facility]) documented in this encounter Additional Health Concerns Assessment Noted Time PHQ-9 Depression Total Score: 3 12/24/19 22 11:48 AM CDT documented as of this encounter Care Teams Magneto Repairer Relationship Specialty Start Date End Date Sanjeev Webster DO [address] [place] [address] PCP - General FAMILY PRACTICE 09/25/20 Dianne Johnson, RN [address] [place] [address] Instructor Of Spanish (Ambulatory) REGISTERED NURSE 08/14/20 documented as of this encounter
--- OUTSIDE RECORDS SUMMARY | 2024-03-15 00:59 | XMS_ITS | Encounter Summary ---
Author Organization [facility] Address [facility] [place] [address] [place] [address] Care Team Providers Care Invas Tech Name Role Phone Dianne Johnson RN Unavailable [phone] Sanjeev Webster DO Primary Care Provider + Reason for Visit * Reason Comments Enhanced Encounter Patient presents for enhanced encounter. Patient states she does not have INR concerns. Dizziness Patient states she h as been dizzy for 3 days. Encounter Details Date Type Department Care Team (Late st Contact Info) Description 07/07/2022 10:40 AM CDT Office Visit [facility] Family & Internal Medicine [address] [id number] Sanjeev Webster DO [address] [place] [id number] Enhanced Encounter (Patient presents for enhanced encounter. Patient states she does not have INR concerns. ); Dizziness (Patient states she has been dizzy for 3 days. ) Social History Tobacco Use Types [...] in a long term (including now)? No 04/03/2022 Comments No Sex [...] AM CDT documented as of this encounter Last Filed Vital Signs Vital Sign Reading Time Taken Comments Blood Pressure 112/60 07/07/2022 11:00 AM CDT Pulse 73 07/07/2022 11:00 AM CDT Temperature 36.7 ??C (98.1 ??F) 07/07/2022 11:00 AM C DT Respiratory Rate 16 07/07/2022 11:00 AM CDT Oxygen Saturation 97% 07/07/2022 11:00 AM CDT Inhaled Oxygen Concentration - - Weight 80.8 kg (178 lb 1.6 oz) 07/07/2022 11:00 AM CDT Height 165.1 cm (5' 5 ) 07/07/2022 11:00 AM CDT Body Mass Index 29.64 07/07/2022 11:00 AM CDT documented in this encounter Functional Status * RETIRED Are [...] Status Yes 11/05/2021 7:00 PM CDT Stephanie Rodriguez, R N Active * Do you have difficulty dressing or bathing? Answer Date of Assessment Author Status No 11/05/2021 7:00 PM CDT Stephanie Rodriguez, R N Active * Because of a physical, mental, or emotional condition, do you have difficulty doing errands alone such as visiting a doctor's office or shopping? Answer Date of Assessment Author Status Yes 11/05/2021 7:00 PM CDT Stephanie Rodriguez, R N Active documented as of this encounter Mental Status * Because of a physical, mental, or emotional condition, do you have serious difficulty concentrating, remembering, or making decisions? Answer Entry Date Author Status No 11/05/2021 7:00 PM CDT Stephanie Rodriguez, R N Active documented in this encounter Progress Notes * Sanjeev Webster DO - 07/07/2022 10:40 AM CDT Annual Preventive Visit Reason for Visit: Radha is an 77-year-old female here for Enhanced Encounter (Patient presents for enhanced encounter. Patient states she does not have INR concerns. ) and Dizziness (Patient states she has been dizzy for 3 days. ) Patient Care Team: Sanjeev Webster DO as PCP - General (FAMILY PRACTICE) Dianne Johnson RN as Curing Room Worker (Ambulatory) (REGISTERED NURSE) History of Present Illness: Pt has some dizziness for the past three days. She will feel weak and like she's going to fall down. Pt is on oxybutynin, which is relatively recent. She hasn't noticed any improvement with it thus far. She noticed her urination has decreased as well. Pt has hyperthyroidism. Patient is currently on methimazole. She is following with endocrine Dr. Moreno, but she has not followed up as recommended with them. Her last labs were stable. She has has previous ultrasound from 2021 that showed chronic thyroiditis. Patient has elevated thyroid peroxidaseantibodies from labs on 01/13/22. Pt's TSI was also elevated. Pt has been on methimazole since August 2021. Patient presents for follow-up on essential hypertension. Patient has had hypertension for multipleyears. Her levels are controlled today. Current medications include metoprolol, furosemide, and lisinopril. Patient's blood pressure is elevated today. No side effects noted from medications. Pt is noted to have associated T2DM and CKD stage 3b. Patient has Type 2 Diabetes. Patient has had diabetes for multiple years. Medications include none specifically for lowering blood sugars. BS logs range: doesn't check. Patient's weight has gone down5 lbs. Pt has neuropathy and PAD, both of which are stable. Pt is on gabapentin for neuropathy. No claudication at this time. Office Visit on 07/07/2022 Component Date Value Ref Range Status HGB A1C 07/07/2022 6.6 % Final Patient presents for major depressive disorder. Pt has had this for multiple years. Concurrent psychiatric conditions include anxiety. Pt is currently taking venlafaxine and Xanax prn. Pt does not see counseling. Pt's symptoms are adequately controlled. Patient would like to continue current medications as prescribed. Pt has secondary hyperparathyroidism and osteoporosis, confirmed on DEXA from 07/15/21. Pt has beenfollowing with Dr. Moreno for this, but has not been able to follow-up as recommended. She is currently on Prolia. Pt had a random urine calcium that was WNL on 01/13/22. FeCa estimated from these results is [id number]. Pt has multiple cardiac issues for which she follows with Dr. Ordoñez and Ana Maria Hess. These include mechanical aortic valve replacement, chronic anticoagulation, paroxysmal atrial flutter & fibrillation, hx of NSTEMI, CAD without angina, and HFpEF. Pt has a mechanical [employer]. Lj aortic valve.She is on warfarin; we are managing this. She is no longer on amiodarone due to hyperthyroidism. Ptis on warfarin, rosuvastatin, furosemide, lisinopril, Lasix, and [...] not need labs drawn today. Pt has vascular dementia and saccular aneurysm. No recent changes regarding her dementia; it is stable. Her aneurysm has also been stable in size since last year. Pt will see neurology more locally as pt wasn't able to see neurology at [facility]. Pt has senile purpura. No recent issues with this. She is on warfarin at this time. Pt has emphysema. She denies coughing or SOB. She uses albuterol as needed. Her PFT showed pattern consistent with COPD. Pt has been evaluated for cirrhosis previously based upon imaging. Her lab testing has been unremarkable for this. We have opted to monitor this for now given pt's multiple other co-morbidities, difficulty of access to specialists, and lack of symptoms. ROS Review of Systems Constitutional: Negative for fever. Respiratory: See HPI Cardiovascular: Negative for chest pain. Gastrointestinal: See HPI Genitourinary: See HPI Musculoskeletal: Stable Skin: See HPI Psychiatric/Behavioral: See HPI Medications: Current Outpatient Medications Medication Sig Dispense [...] 60 mg Subcutaneous Once Panda Moreno MD Fall Risk 04/17/2022 11:11 AM 07/08/2022 7:58 AM Ambulatory Fall Risk Assessment One or More Falls Yes Yes Feels Unsteady Yes Yes Worried About Falling Yes Yes PHQ2/PHQ9 3 Health Maintenance Topic Date Due Kidney Health [...] Hepatitis C Completed Meningococcal Vaccine Aged Out History Past Medical History: Diagnosis [...] Mother Social History Socioeconomic History Marital status: Social History Tobacco Use Smoking status: Never [...] Rate and Rhythm: Normal rate. Rhythm irregular. Pulses: Dorsalis pedis pulses are 1+ on [...] Mood and Affect: Mood normal. Filed Vitals: 07/07/22 1100 BP: 112/60 Pulse: 73 Resp: 16 Temp: 98.1 ??F (36.7 ??C) TempSrc: Skin SpO2: 97% Weight: 80.8 kg (178 lb 1.6 oz) Height: 5' 5 (1.651 m) Diagnoses/Impression 1. Dizziness 2. Type 2 diabetes mellitus with stage 3b chronic kidney disease, without long- term current use of insulin ([facility]) A1C (BACK OFFICE) COLLECT.CAPILLARY (FNGR,HEEL,EAR) ALBUMIN URINE RANDOM CBC W/DIFF AUTOMATED CK (CPK) COMPREHENSIVE METABOLIC PANEL FREE T3 LIPID PANEL MAGNESIUM PHOSPHORUS, INORGANIC PHOSPHATE PTH - INTACT THYROXINE, FREE (FT4) TSH W/REFLEX CANCELED: CBC W/DIFF AUTOMATED CANCELED: LIPID PANEL CANCELED: TSH W/REFLEX CANCELED: COMPREHENSIVE METABOLIC PANEL CANCELED: ALBUMIN URINE RANDOM CANCELED: CK (CPK) CANCELED: PTH - INTACT CANCELED: PHOSPHORUS, INORGANIC PHOSPHATE CANCELED: THYROXINE, FREE (FT4) CANCELED: MAGNESIUM CANCELED: FREE T3 3. Encounter for long-term (current) drug use CANCELED: MG/PCCL UDS W CONF 4. Chronic heart failure with preserved ejection fraction (HFpEF) ([facility]) ALBUMIN URINE RANDOM CBC W/DIFF AUTOMATED CK (CPK) COMPREHENSIVE METABOLIC PANEL FREE T3 LIPID PANEL MAGNESIUM PHOSPHORUS, INORGANIC PHOSPHATE PTH - INTACT THYROXINE, FREE (FT4) TSH W/REFLEX CANCELED: CBC W/DIFF AUTOMATED CANCELED: LIPID PANEL CANCELED: TSH W/REFLEX CANCELED: COMPREHENSIVE METABOLIC PANEL CANCELED: ALBUMIN URINE RANDOM CANCELED: CK (CPK) CANCELED: PTH - INTACT CANCELED: PHOSPHORUS, INORGANIC PHOSPHATE CANCELED: THYROXINE, FREE (FT4) CANCELED: MAGNESIUM CANCELED: FREE T3 5. Secondary hyperparathyroidism ([facility]) ALBUMIN URINE RANDOM CBC W/DIFF AUTOMATED CK (CPK) COMPREHENSIVE METABOLIC PANEL FREE T3 LIPID PANEL MAGNESIUM PHOSPHORUS, INORGANIC PHOSPHATE PTH - INTACT THYROXINE, FREE (FT4) TSH W/REFLEX VITAMIN D, 25 [place] CANCELED: CBC W/DIFF AUTOMATED CANCELED: LIPID PANEL CANCELED: TSH W/REFLEX CANCELED: COMPREHENSIVE METABOLIC PANEL CANCELED: ALBUMIN URINE RANDOM CANCELED: CK (CPK) CANCELED: PTH - INTACT CANCELED: PHOSPHORUS, INORGANIC PHOSPHATE CANCELED: THYROXINE, FREE (FT4) CANCELED: MAGNESIUM CANCELED: FREE T3 6. Graves' disease ALBUMIN URINE RANDOM CBC W/DIFF AUTOMATED CK (CPK) COMPREHENSIVE METABOLIC PANEL FREE T3 LIPID PANEL MAGNESIUM PHOSPHORUS, INORGANIC PHOSPHATE PTH - INTACT THYROXINE, FREE (FT4) TSH W/REFLEX CANCELED: CBC W/DIFF AUTOMATED CANCELED: LIPID PANEL CANCELED: TSH W/REFLEX CANCELED: COMPREHENSIVE METABOLIC PANEL CANCELED: ALBUMIN URINE RANDOM CANCELED: CK (CPK) CANCELED: PTH - INTACT CANCELED: PHOSPHORUS, INORGANIC PHOSPHATE CANCELED: THYROXINE, FREE (FT4) CANCELED: MAGNESIUM CANCELED: FREE T3 7. Hypertension associated with type 2 diabetes mellitus (CMS/HCC) 8. Age-related osteoporosis without current pathological fracture 9. Stage 3b chronic kidney disease (CMS/HCC) 10. Paroxysmal atrial fibrillation (CMS/HCC) 11. Peripheral arterial occlusive disease (CMS/HCC) 12. Major depression single episode, in partial remission (CMS/HCC) 13. Cirrhosis of liver without ascites, unspecified hepatic cirrhosis type (CMS/HCC) 14. Pulmonary emphysema, unspecified emphysema type (CMS/HCC) 15. Senile purpura (CMS/HCC) 16. Polymyalgia rheumatica (CMS/HCC) 17. Vascular dementia without behavioral disturbance (CMS/HCC) 18. Saccular aneurysm 19. Hyperlipidemia associated with type 2 diabetes mellitus (CMS/HCC) 20. Paroxysmal atrial flutter (CMS/HCC) 21. Coronary artery disease involving pokagon coronary artery of pokagon heart without angina pectoris 22. BMI 29.0-29.9,adult 1. Dizziness -Will stop oxybutynin to see if this improves symptoms. Will also order labs as ordered. 2. Type 2 diabetes mellitus with stage 3b chronic kidney disease, without long- term current use of insulin (CMS/HCC) -Stable, continue lifestyle changes and diet control -Recommend weight loss -Monitor feet -Follow-up with eye doctor once a year or more if needed 3. Encounter for long-term (current) drug use -Continue warfarin 4. Chronic heart failure with preserved ejection fraction (HFpEF) (CMS/HCC) -Continue current meds; stable -continue f/u with cardiology -Monitor weights daily, report if>3 lb weight gain 5. Secondary hyperparathyroidism (CMS/HCC) -Continue current meds -Will order labs as per above -encouraged to f/u with endocrine 6. Graves' disease -Continue current meds -Will order labs as per above -encouraged to f/u with endocrine 7. Hypertension associated with type 2 diabetes mellitus (CMS/HCC) -Stable, continue current medications 8. Age-related osteoporosis without current pathological fracture -Continue current meds -Will order labs as per above -encouraged to f/u with endocrine 9. Stage 3b chronic kidney disease (CMS/HCC) -Continue good diabetic and HTN control, stable -Will order labs as per above 10. Paroxysmal atrial fibrillation (CMS/HCC) -continue current meds and f/u with cardiology; stable 11. Peripheral arterial occlusive disease (CMS/HCC) -continue current meds and f/u with cardiology; stable 12. Major depression single episode, in partial remission ([facility]) -Stable, continue current meds 13. Cirrhosis of liver without ascites, unspecified hepatic cirrhosis type ([facility]) -Will monitor for now, stable -Consider GI referral 14. Pulmonary emphysema, unspecified emphysema type ([facility]) -Stable, no symptoms 15. Senile purpura ([facility]) -Monitor, continue warfarin 16. Polymyalgia rheumatica ([facility]) -Stable, continue to monitor 17. Vascular dementia without behavioral disturbance ([facility]) -Stable, continue current meds -F/u with neurology as recommended 18. Saccular aneurysm -Stable, continue current meds -F/u with neurology as recommended -Will defer recheck to neurology at this time 19. Hyperlipidemia associated with type 2 diabetes mellitus ([facility]) -Stable, continue current meds -Will order labs as per above 20. Paroxysmal atrial flutter ([facility]) -Stable, continue current meds -F/u with cardiology as recommended 21. Coronary artery disease involving pokagon coronary artery of pokagon heart without angina pectoris -Stable, continue current meds -F/u with cardiology as recommended 22. BMI 29.0-29.9,adult -Recommend weight loss Recommendations and Plan: F/u in 4 weeks. Pt v/u. Orders Placed This Encounter COLLECT.CAPILLARY (FNGR,HEEL,EAR) A1C (BACK OFFICE) ALBUMIN URINE RANDOM CBC W/DIFF AUTOMATED CK (CPK) COMPREHENSIVE METABOLIC PANEL FREE T3 LIPID PANEL MAGNESIUM PHOSPHORUS, INORGANIC PHOSPHATE PTH - INTACT THYROXINE, FREE (FT4) TSH W/REFLEX VITAMIN D, 25 [place] Reviewed and updated this visit by provider: Allergies Meds Problems I personally spent a total of 85 minutes on the day of the encounter. This includes vomc-sx-vaeg and nrp-qjhu-ag-face time I provided on the day of the encounter & excludes time spent performing separately reportable services. Sanjeev Webster DO documented in this encounter Plan of Treatment Upcoming Encounters Date Type Department Care Team (Late st Contact Info) Description 04/14/2024 2:00 PM PLANNING INTERN Office Visit [facility] Multispecialty Care - [facility] [address] [facility], [address] [place] [id number] Julio Pulido MD [address] [place] [address] Scheduled Orders Name Type Priority Associated Diagnoses Orde r Schedule ALBUMIN URINE RANDOM Lab Routine Type 2 diabetes mellitus with stage 3b chronic kidney disease, without long-term current use of insulin ([facility]) Chronic heart failure with preserved ejection fraction (HFpEF) ([facility]) Secondary hyperparathyroidism ([facility]) Graves' disease Expected: 07/07/2022, Expires: 07/08/2023 CBC W/DIFF AUTOMATED Lab Routine Type 2 diabetes mellitus with stage 3b chronic kidney disease, without long-term current use of insulin ([facility]) Chronic heart failure with preserved ejection fraction (HFpEF) ([facility]) Secondary hyperparathyroidism ([facility]) Graves' disease Expected: 07/07/2022, Expires: 07/08/2023 CK (CPK) Lab Routine Type 2 diabetes mellitus with stage 3b chronic kidney disease, without long-term current use of insulin ([facility] Chronic heart failure with preserved ejection fraction (HFpEF) ([facility]) Secondary hyperparathyroidism ([facility]HCC) Graves' disease Expected: 07/07/2022, Expires: 07/08/2023 COMPREHENSIVE METABOLIC PANEL Lab Routine Type 2 diabetes mellitus with stage 3b chronic kidney disease, without long-term current use of insulin ([facility]) Chronic heart failure with preserved ejection fraction (HFpEF) ([facility]) Secondary hyperparathyroidism ([facility]) Graves' disease Expected: 07/07/2022, Expires: 07/08/2023 FREE T3 Lab Routine Type 2 diabetes mellitus with stage 3b chronic kidney disease, without long-term current use of insulin ([facility]) Chronic heart failure with preserved ejection fraction (HFpEF) ([facility]) Secondary hyperparathyroidism ([facility]) Graves' disease Expected: 07/07/2022, Expires: 07/07/2023 LIPID PANEL Lab Routine Type 2 diabetes mellitus with stage 3b chronic kidney disease, without long-term current use of insulin ([facility]) Chronic heart failure with preserved ejection fraction (HFpEF) ([facility]) Secondary hyperparathyroidism ([facility]) Graves' disease Expected: 07/07/2022, Expires: 07/08/2023 MAGNESIUM Lab Routine Type 2 diabetes mellitus with stage 3b chronic kidney disease, without long-term current use of insulin ([facility]) Chronic heart failure with preserved ejection fraction (HFpEF) ([facility]) Secondary hyperparathyroidism ([facility]) Graves' disease Expected: 07/07/2022, Expires: 07/07/2023 PHOSPHORUS, INORGANIC PHOSPHATE Lab Routine Type 2 diabetes mellitus with stage 3b chronic kidney disease, without long-term current use of insulin ([facility]) Chronic heart failure with preserved ejection fraction (HFpEF) ([facility]) Secondary hyperparathyroidism ([facility]) Graves' disease Expected: 07/07/2022, Expires: 07/07/2023 PTH - INTACT Lab Routine Type 2 diabetes mellitus with stage 3b chronic kidney disease, without long-term current use of insulin ([facility]) Chronic heart failure with preserved ejection fraction (HFpEF) ([facility]) Secondary hyperparathyroidism ([facility]) Graves' disease Expected: 07/07/2022, Expires: 07/07/2023 THYROXINE, FREE (FT4) Lab Routine Type 2 diabetes mellitus with stage 3b chronic kidney disease, without long-term current use of insulin ([facility]) Chronic heart failure with preserved ejection fraction (HFpEF) ([facility]) Secondary hyperparathyroidism ([facility]) Graves' disease Expected: 07/07/2022, Expires: 07/07/2023 TSH W/REFLEX Lab Routine Type 2 diabetes mellitus with stage 3b chronic kidney disease, without long-term current use of insulin ([facility]) Chronic heart failure with preserved ejection fraction (HFpEF) ([facility]) Secondary hyperparathyroidism ([facility]) Graves' disease Expected: 07/07/2022, Expires: 07/08/2023 VITAMIN D, 25 OH Lab Routine Secondary hyperparathyroidism ([facility]) Expected: 07/07/2022, Expires: 07/07/2023 documented as of this encounter Goals Goal Patient Goal Type Associated Problems Recent Progress Patient-Stated? Author Health - patient able to perform ADLs independently General On track(2023 9:49 AM CDT) Dianne Corona, DALE Note: 12/17/23: Patient stated she is independent with ASL's. Establish Plan for Symptom Monitoring-CHF General On track(2023 11:36 AM PLANNING INTERN) Dianne Corona, DALE Note: Patient will recognize [...] Symptom Monitoring-COPD General On track(2023 11:36 AM PLANNING INTERN) Dianne Corona RN Note: Patient will [...] Symptom Monitoring-DM General On track(2023 4:33 PM PLANNING INTERN) Dianne Corona RN Note: Patient will manage [...] Symptom Monitoring-HTN General On track(2023 4:33 PM PLANNING INTERN) Dianne Corona RN Note: Patient will monitor [...] Date/Time Associated Diagnosis Comments COLLECT.CAPILLARY (FNGR,HEEL,EAR) Routine 07/07/2022 10:50 AM CDT Type 2 diabetes mellitus with stage 3b chronic kidney disease, without long-term current use of insulin ([facility]) HEMOGLOBIN, GLYCOSYLATED Routine 07/07/2022 Type 2 diabetes mellitus with stage 3b chronic kidney disease, without long-term current use of insulin ([facility]) documented in this encounter Results * A1C (BACK OFFICE) (07/07/2022) HGB A1C 6.6 % [facility] 07/07/2022 us Sanjeev Webster DO LABORATORY Final Re sult [facility] [address] [place] [address], documented in this encounter Visit Diagnoses Diagnosis Dizziness- Primary Dizziness and giddiness Type 2 diabetes mellitus with stage 3b chronic kidney disease, without long-term current use of insulin ([facility]) Encounter for long-term (current) drug use Encounter for long-term (current) use of other medications Chronic heart failure with preserved ejection fraction (HFpEF) ([facility]) Secondary hyperparathyroidism ([facility]) Secondary hyperparathyroidism (of renal origin) Graves' disease Toxic diffuse goiter without mention of thyrotoxic crisis or storm Hypertension associated with type 2 diabetes mellitus ([facility]) Age-related osteoporosis without current pathological fracture Senile osteoporosis Stage 3b chronic kidney disease ([facility]) Paroxysmal atrial fibrillation ([facility]) Atrial fibrillation Peripheral arterial occlusive disease ([facility]) 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 depression single episode, in partial remission ([facility]) Major depressive disorder, single episode, in partial or unspecified remission Cirrhosis of liver without ascites, unspecified hepatic cirrhosis type ([facility]) Pulmonary emphysema, unspecified emphysema type ([facility]) Senile purpura ([facility]) Other nonthrombocytopenic purpuras Polymyalgia rheumatica ([facility]) Polymyalgia rheumatica Vascular dementia without behavioral disturbance ([facility]) Vascular dementia, uncomplicated 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[facility]) Cerebral aneurysm, nonruptured Hyperlipidemia associated with type 2 diabetes mellitus ([facility]) Paroxysmal atrial flutter ([facility]) Atrial flutter Coronary artery disease involving pokagon coronary artery of pokagon heart without angina pectoris BMI 29.0-29.9,adult Body Mass Index 29.0-29.9, adult documented in this encounter Additional Health Concerns Assessment Noted Time PHQ-9 Depression Total Score: 3 12/24/19 22 11:48 AM CDT documented as of this encounter Care Teams Invas Tech Relationship Specialty Start Date End Date Sanjeev Webster DO [address] [place] [id number] PCP - General FAMILY PRACTICE 09/25/20 Dianne Johnson, RN [address] [place] [address] Curing Room Worker (Ambulatory) REGISTERED NURSE 08/14/20 documented as of this encounter
--- OUTSIDE RECORDS SUMMARY | 2024-03-15 00:59 | XMS_ITS | Encounter Summary ---
Author Organization [facility] Address [address] [place] [address] [place] [address] Care Team Providers Care Belt Worker Name Role Phone Casey Johnson RN Unavailable [phone] Sanjeev Webster DO Primary Care Provider + Reason for Visit * Reason Onset Date Comments Care Management 06/17/2022 Encounter Details Date Type Department Care Team (Late st Contact Info) Description 06/17/2022 Patient Outreach [facility] Medical Group Family & Internal Medicine [address] [address] Casey Johnson, RN [address] [place] [address] Care Management Social History Tobacco [...] Progress Notes * Casey Johnson RN - 06/17/2022 8:31 AM CDT Chronic Care Management: Patient concerns or urgent matters that need addressed: Non identified during this phone call. Patient Status: Contacted patient today. She is a pleasant 77 year old. Reports pain from shingles on back is better. Shingles under her right arm and by her right breast are painful. Unable to wear a bra right now due to the pain. She is taking gabapentin 3 times a day and hydrocodone/acetaminophen twice a day tohelp control pain. Patient denies any worsening s/s with COPD or CHF. Educated on the importance ofmonitoring s/s and report the onset of any changes to CC. HTN: Patient is getting B/P checked at each visit. She is not checking B/P at home. Last B/P at office on 06/03/22: 127/75. A1C on 01/13/22: 6.2. Last INR: 2.7 on 04/25/22. Informed patient she is passed due to get PT/INR. Patient stated she was told to get it checked at next OV which is on 06/23/22. Added PT/INR to appointment details. Patient stated she will call if she can't make that appointment. Informed patient if she can't keep the appointment to let CC know. She will need to get a PT/INR done soon. Patient verbalizes understanding. Plan of Care: project development coordinator will continue to follow up by phone, provide resources when needed, educate on disease management, and assess chronic conditions. Patient Goals: Goals Addressed This Visit's Progress ??? Establish Plan for Symptom Monitoring-CHF On track Patient will recognize symptoms of CHF and report to physician should they occur. 1. Weight gain > 3 lbs over night or > 5 lbs in a week 2. Increased swelling of feet, legs, or stomach 3. Increased or persistent cough 4. Increase in SOB with activity or at rest 5. Increase in number of pillows needed Take medications as prescribed. Follow up with physician appointments as scheduled. Don't stop taking any of your medications or start taking any medications without discussing with your provider. ??? Establish Plan for Symptom Monitoring-COPD On track Patient will recognize symptoms of COPD exacerbation and report to the physician. If severe, patient will seek emergent treatment at [facility] or ER. Notify your provider if you have any of the following symptoms: 1. More breathless than usual 2. Using quick relief inhaler more often than usual 3. Less energy 4. Increased coughing, thicker phlegm/mucus 5. Increased swelling in ankles 6. Poor sleep due to waking up at night with symptoms 7. Medication is not helping 8. Appetite is poor Follow up with your provider as scheduled Take your medications as prescribed Do not stop any of your medications without notifying provider ??? Establish Plan for Symptom Monitoring-HTN On track Patient will monitor B/P several times per week , record readings and report to physician or CC if B/P consistently >130/80 Take your medications as prescribed. Follow up with your provider as scheduled. Take your blood pressure at least several times a week if able. Upcoming Visit Appointments: Future Appointments Date Time Provider Department Center 06/23/2022 1:00 PM Sanjeev Webster DO [id number] 09/12/2022 11:00 AM Panda Moreno MD [facility] [facility] Quality care gaps: Health Maintenance Topic Date Due ??? Kidney Health Evaluation Never done ??? Annual Medicare Wellness Visit Never done ??? Hemoglobin A1C 07/13/2022 ??? Zoster Vaccines (1 of 2) 03/31/2023 (Originally 02/19/2016) ??? COVID-19 Vaccine (5 - Booster for Pfizer series) 03/31/2023 (Originally 10/24/2021) ??? Lipid Panel 08/29/2022 ??? Diabetes: Retinopathy Eye Exam 04/21/2024 ??? DTaP, Tdap and Td Vaccines (4 - Td or Tdap) 09/05/2030 ??? DEXA SCAN (GENERAL) Completed ??? Pneumococcal Vaccine: 65+ Years Completed ??? Hepatitis C Completed ??? Meningococcal Vaccine Aged Out Problem List: Patient Active Problem List Diagnosis ??? Abnormal stress test ??? Chronic anticoagulation ??? Coronary artery disease involving curyung coronary artery of curyung heart without angina pectoris ??? Dyspnea on exertion ??? H/O mechanical aortic valve replacement ??? Hypertensive heart disease with congestive heart failure (CMS/HCC) ??? LBBB (left bundle branch block) ??? Myopathy ??? VAZQUEZ (obstructive sleep apnea) ??? Paroxysmal atrial flutter (CMS/HCC) ??? Benign hypertension with CKD (chronic kidney disease) stage III (CMS/HCC) ??? Kidney dysfunction ??? Memory deficits ??? Hearing deficit, bilateral ??? History of cataract extraction, unspecified laterality ??? Vitamin D deficiency ??? Hypercalcemia ??? Chronic frontal sinusitis ??? Constipation, unspecified constipation type ??? Chronic bilateral low back pain without sciatica ??? Iron deficiency anemia, unspecified iron deficiency anemia type ??? Disorder of skin of trunk ??? Anemia ??? Body mass index (BMI) 31.0-31.9, adult ??? Saccular aneurysm ??? Benign hypertension with stage 3b chronic kidney disease (CMS/HCC) ??? Cobalamin deficiency ??? Compression fracture of thoracic vertebra (CMS/HCC) ??? Depression ??? Diabetic polyneuropathy (CMS/HCC) ??? Disorder of rotator cuff ??? Diverticular disease ??? Dysphagia ??? Elevated troponin ??? Gastroesophageal reflux disease without esophagitis ??? Hyperlipidemia, unspecified hyperlipidemia type ??? Vascular dementia (CMS/HCC) ??? Unknown and unspecified causes of morbidity ??? Syncope, unspecified syncope type ??? Senile purpura (CMS/HCC) ??? Wrist joint pain ??? Respiratory illness ??? Requires lifelong warfarin therapy ??? Secondary hyperparathyroidism (CMS/HCC) ??? Presence of prosthetic heart valve ??? Plantar fascial fibromatosis ??? Peripheral neuropathy ??? Parathyroid adenoma ??? Polymyalgia rheumatica (CMS/HCC) ??? Osteoporosis ??? Numbness ??? Muscle cramps ??? Closed stable burst fracture of sixth thoracic vertebra, initial encounter (CMS/HCC) ??? Atrial fibrillation with rapid ventricular response (CMS/HCC) ??? Chest pain ??? Contusion of scalp ??? Knee pain ??? Localized, primary osteoarthritis ??? Osteoarthritis of knee ??? Traumatic closed displaced fracture of distal end of radius ??? Shoulder joint pain ??? Hyperlipidemia associated with type 2 diabetes mellitus (CMS/HCC) ??? PVD (peripheral vascular disease) (CMS/HCC) ??? Hematoma ??? Anxiety ??? Diastolic heart failure (CMS/HCC) ??? Internal hemorrhoids ??? Kidney stone ??? Leukoencephalopathy ??? Major depression single episode, in partial remission (CMS/HCC) ??? Metacarpal bone fracture ??? Mitral valve disorder ??? Purpura (CMS/HCC) ??? Peripheral arterial occlusive disease (CMS/HCC) ??? Primary osteoarthritis involving multiple joints ??? Vision loss ??? COPD (chronic obstructive pulmonary disease) (CMS/HCC) ??? Diarrhea ??? Drug-induced constipation ??? H/O mechanical aortic valve replacement ??? On amiodarone therapy ??? Age-related osteoporosis with current pathological fracture ??? Care Management ??? OLIVE (acute kidney injury) (CMS/HCC) ??? Physical deconditioning ??? Chronic heart failure with preserved ejection fraction (HFpEF) (CMS/HCC) ??? Paroxysmal atrial fibrillation (CMS/HCC) ??? Hypertension associated with type 2 diabetes mellitus (CMS/HCC) ??? Encounter for prophylactic measures, unspecified Medications: Current Outpatient Medications Medication Sig Dispense Refill ??? acetaminophen (TYLENOL) 500 MG tablet Take 1 tablet (500 mg total) by mouth daily as needed. Nomore then 2500 mg per day. ??? albuterol sulfate HFA 108 (90 Base) MCG/ACT inhaler Inhale 2 puffs into the lungs every 6 (six)hours as needed for Wheezing. 18 g 1 ??? ALPRAZolam (XANAX) 0.5 MG tablet Take 0.5 tablets (0.25 mg total) by mouth nightly as needed for Sleep. 15 tablet 0 ??? Cholecalciferol (VITAMIN D3) 25 MCG (1000 UT) Cap Take 1,000 Units by mouth daily. ??? furosemide (LASIX) 80 MG tablet Take 1 tablet (80 mg total) by mouth daily. 30 tablet 2 ??? gabapentin (NEURONTIN) 300 MG capsule Take 1 capsule (300 mg total) by mouth 3 (three) times daily. 270 capsule 0 ??? HYDROcodone-acetaminophen (NORCO) 10-325 MG tablet Take 1 tablet by mouth every 6 (six) hours as needed for Pain. Indications: Chronic Pain Do not take with alprazolam. 30 tablet 0 ??? iron polysaccharides (NIFEREX) 150 MG capsule Take 1 capsule (150 mg total) by mouth daily. 30 capsule 2 ??? lisinopril (PRINIVIL) 20 MG tablet Take 1 tablet by mouth once daily 30 tablet 0 ??? methIMAzole (TAPAZOLE) 10 MG tablet Take 1 tablet by mouth once daily 90 tablet 1 ??? metoprolol tartrate (LOPRESSOR) 25 MG tablet Take 0.5 tablets (12.5 mg total) by mouth 2 (two) times daily. 60 tablet 3 ??? omeprazole (PRILOSEC) 20 MG capsule Take 1 capsule by mouth once daily 90 capsule 1 ??? oxybutynin XL (DITROPAN-XL) 5 MG 24 hr tablet Take 1 tablet (5 mg total) by mouth daily. 30 tablet 2 ??? potassium chloride CR (K-TAB) 10 MEQ Tab CR tablet Take 1 tablet by mouth once daily 90 tablet 1 ??? rosuvastatin (CRESTOR) 5 MG tablet TAKE 1 TABLET BY MOUTH NIGHTLY AT BEDTIME 90 tablet 0 ??? venlafaxine XR (EFFEXOR-XR) 150 MG 24 hr capsule Take 1 capsule (150 mg total) by mouth daily. 90 capsule 1 ??? warfarin (COUMADIN) 1 MG tablet Take 1 tablet by mouth once daily 30 tablet 0 ??? warfarin (COUMADIN) 6 MG tablet Take 1 tablet by mouth once daily 30 tablet 0 No current facility-administered medications for this visit. Facility-Administered Medications Ordered in Other Visits Medication Dose Route Frequency Provider Last Rate Last Admin ??? denosumab (PROLIA) injection 60 mg 60 mg Subcutaneous Once Panda Moreno MD Chronic Care Management- Time Spent with Patient Time spent with patient (minutes): 10 Time spent performing chart review (minutes): 8 Total time (minutes): 18 CASEY JOHNSON RN I reviewed the patient's status and education provided by CASEY R JOHNSON, RN. I agree with the findings and recommendations made. Cosigned by Sanjeev Webster DO at 06/18/2022 2:19 PM CDT documented in this encounter Plan of Treatment Upcoming Encounters Date Type Department Care Team (Late st Contact Info) Description 04/14/2024 2:00 PM RESISTANCE MACHINE WELDER SETTER Office Visit [facility] Medical Group Multispecialty Care - [facility] [address], [address] [place] [phone] Julio Pulido MD [address] [place] [address] documented as of this encounter Goals Goal Patient Goal Type Associated Problems Recent Progress Patient-Stated? Author Health - patient able to perform ADLs independently General On track(2023 9:49 AM CDT) Casey Corona RN Note: 12/17/23: Patient stated she is independent with ASL's. Establish Plan for Symptom Monitoring-CHF General On track(2023 11:36 AM RESISTANCE MACHINE WELDER SETTER) Casey Corona RN Note: Patient will recognize [...] Symptom Monitoring-COPD General On track(2023 11:36 AM RESISTANCE MACHINE WELDER SETTER) Casey Corona RN Note: Patient will recognize [...] Symptom Monitoring-DM General On track(2023 4:33 PM RESISTANCE MACHINE WELDER SETTER) Casey Corona RN Note: Patient will manage [...] Symptom Monitoring-HTN General On track(2023 4:33 PM RESISTANCE MACHINE WELDER SETTER) Casey Corona RN Note: Patient will monitor [...] heart failure with preserved ejection fraction (HFpEF) ([facility])- Primary Type 2 diabetes mellitus ([facility]) Type II or unspecified type diabetes mellitus without mention of complication, not stated as uncontrolled COPD (chronic obstructive pulmonary disease) ([facility]) Chronic airway obstruction, not elsewhere classified documented in this encounter Additional Health Concerns Assessment Noted Time PHQ-9 Depression Total Score: 3 12/24/19 22 11:48 AM CDT documented as of this encounter Care Teams Belt Worker Relationship Specialty Start Date End Date Sanjeev Webster DO [address] [place] [id number] PCP - General FAMILY PRACTICE 09/25/20 Casey Johnson, RN [facility] [place] [address] Logistics Officer (Ambulatory) REGISTERED NURSE 08/14/20 documented as of this encounter
--- OUTSIDE RECORDS SUMMARY | 2024-03-15 00:59 | XMS_ITS | Encounter Summary ---
Author Organization [facility] Address [facility] [facility] [place] [address] [place] [address] Care Team Providers Care Videotape Recording Engineer Name Role Phone Dianne Johnson RN Unavailable [phone] Sanjeev Webster DO Primary Care Provider + Reason for Visit * Reason Onset Date Comments Question 07/07/2022 Medication 07/07/2022 Encounter Details Date Type Department Care Team (Late st Contact Info) Description 07/07/2022 Telephone [facility] Medical Group Family & Internal Medicine [id number] [place] [address] Sanjeev Webster DO [address] [place] [address] Question; Medication Social History Tobacco Use Types Packs/Day [...] slept in a intermediate (including now)? No 04/03/2022 Comments No Sex [...] Progress Notes * Yenifer Ingram MA - 07/07/2022 3:53 PM CDT Spoke with Izzy and clarified medications patient is not to take oxybutyin, iron and Crestor. * Humera Stone - 07/07/2022 3:18 PM CDT Pt daughter in law is wanting to make sure that the pt medication list is up to date before she goes to refill all the medications Izzy [phone] documented in this encounter Plan of Treatment Upcoming Encounters Date Type Department Care Team (Late st Contact Info) Description 04/14/2024 2:00 PM ADMINISTRATIVE OFFICE CLERK Office Visit [facility] Medical Group Multispecialty Care - [facility] [address] [facility], [address] [place] [phone] Julio Pulido MD 3 [place] [address] documented as of this encounter Goals Goal Patient Goal Type Associated Problems Recent Progress Patient-Stated? Author Health - patient able to perform ADLs independently General On track(2023 9:49 AM CDT) Dianne Corona, RN Note: 12/17/23: Patient stated she is independent with ASL's. Establish Plan for Symptom Monitoring-CHF General On track(2023 11:36 AM ADMINISTRATIVE OFFICE CLERK) Dianne Corona RN Note: Patient will [...] Monitoring-COPD General On track(2023 11:36 AM ADMINISTRATIVE OFFICE CLERK) Dianne Corona RN Note: Patient will [...] Monitoring-DM General On track(2023 4:33 PM ADMINISTRATIVE OFFICE CLERK) Dianne Corona RN Note: Patient will [...] Monitoring-HTN General On track(2023 4:33 PM ADMINISTRATIVE OFFICE CLERK) No Dianne Johnson RN Note: Patient [...] documented as of this encounter Care Teams Videotape Recording Engineer Relationship Specialty Start Date End Date Sanjeev Webster DO [address] [place] [id number] PCP - General FAMILY PRACTICE 09/25/20 Dianne Johnson, RN [facility] [place] [address] Project Executive (Ambulatory) REGISTERED NURSE 08/14/20 documented as of this encounter
--- OUTSIDE RECORDS SUMMARY | 2024-03-15 00:59 | XMS_ITS | Encounter Summary ---
Author Organization [facility] Address [facility] [facility] [place] [address] [place] [address] Care Team Providers Care Superintendent Renting Managing Name Role Phone Dianne Johnson RN Unavailable [phone] Sanjeev Webster DO Primary Care Provider + Reason for Visit * Reason Onset Date Comments Question 07/07/2022 Encounter Details Date Type Department Care Team (Late st Contact Info) Description 07/07/2022 Telephone [facility] Medical Group Family & Internal Medicine [id number] [place] [address] Sanjeev Webster DO [facility] [place] [address] Question Social History Tobacco Use [...] slept in a jail (including now)? No 04/03/2022 Comments No Sex [...] Progress Notes * Sanjeev Webster DO - 07/09/2022 9:03 AM CDT Noted; don't expect would be able to get in earlier anywhere else, so will leave this alone at thistime. * Sanjeev Webster DO - 07/07/2022 10:29 PM CDT Pt was referred to neurology at recent OV. Can we reach out to pt to ensure she has scheduled this?Pt is supposed to see new neurologist with [facility]. She relayed to me at OV that she was scheduledbut wasn't certain when. Thank you. documented in this encounter Plan of Treatment Upcoming Encounters Date Type Department Care Team (Late st Contact Info) Description 04/14/2024 2:00 PM SQUEEGEER AND FORMER Office Visit [facility] Medical Group Multispecialty Care - [facility] [address] [facility], [address] [place] [phone] Julio Pulido MD 3 [place] [address] documented as of this encounter Goals Goal Patient Goal Type Associated Problems Recent Progress Patient-Stated? Author Health - patient able to perform ADLs independently General On track(2023 9:49 AM CDT) No Dianne Johnson, RN Note: 12/17/23: Patient stated she is independent with ASL's. Establish Plan for Symptom Monitoring-CHF General On track(2023 11:36 AM SQUEEGEER AND FORMER) Dianne Corona RN Note: Patient will recognize [...] Symptom Monitoring-COPD General On track(2023 11:36 AM SQUEEGEER AND FORMER) Dianne Corona RN Note: Patient will recognize [...] Symptom Monitoring-DM General On track(2023 4:33 PM SQUEEGEER AND FORMER) Dianne Corona RN Note: Patient will manage [...] Symptom Monitoring-HTN General On track(2023 4:33 PM SQUEEGEER AND FORMER) Dianne Corona RN Note: Patient will monitor [...] documented as of this encounter Care Teams Superintendent Renting Managing Relationship Specialty Start Date End Date Sanjeev Webster DO [address] [place] [id number] PCP - General FAMILY PRACTICE 09/25/20 Dianne Johnson, RN [address] [place] [address] Flask Maker (Ambulatory) REGISTERED NURSE 08/14/20 documented as of this encounter
--- OUTSIDE RECORDS SUMMARY | 2024-03-15 00:59 | XMS_ITS | Encounter Summary ---
Author Organization [facility] Address [facility] [facility] [place] [address] [place] [address] Care Team Providers Care Director Web Name Role Phone Dianne Johnson RN Unavailable [phone] Sanjeev Montez DO Primary Care Provider + Reason for Visit * Reason Onset Date Comments Follow Up Call 07/09/2022 Encounter Details Date Type Department Care Team (Late st Contact Info) Description 07/09/2022 Telephone [facility] Medical Group Family & Internal Medicine [id number] [place] [address] Sanjeev Montez DO [address] [place] [address] Follow Up Call Social History [...] in a senior care (including now)? No 04/03/2022 Comments No Sex [...] Progress Notes * Sanjeev Montez DO - 07/10/2022 8:19 AM CDTAddended by: SANJEEV MONTEZ on: 07/10/2022 08:19 AM Modules accepted: Orders * Sanjeev Montez DO - 07/10/2022 8:19 AM CDT Removed rosuvastatin from med list. * Dianne Johnson, RN - 07/09/2022 4:51 PM CDT Patient has been off Rosuvastatin since mid June and reports bilateral leg cramps much better. documented in this encounter Plan of Treatment Upcoming Encounters Date Type Department Care Team (Late st Contact Info) Description 04/14/2024 2:00 PM LEATHER WHITENER Office Visit [facility] Medical Group Multispecialty Care - [facility] [address] [facility], [address] [place] [phone] Julio Pulido MD 3 [place] [address] documented as of this encounter Goals Goal Patient Goal Type Associated Problems Recent Progress Patient-Stated? Author Health - patient able to perform ADLs independently General On track(2023 9:49 AM CDT) Dianne Corona RN Note: 12/17/23: Patient stated she is independent with ASL's. Establish Plan for Symptom Monitoring-CHF General On track(2023 11:36 AM LEATHER WHITENER) Dianne Corona RN Note: Patient will recognize [...] Symptom Monitoring-COPD General On track(2023 11:36 AM LEATHER WHITENER) Dianne Corona RN Note: Patient will recognize [...] Symptom Monitoring-DM General On track(2023 4:33 PM LEATHER WHITENER) Dianne Corona RN Note: Patient will manage [...] Symptom Monitoring-HTN General On track(2023 4:33 PM LEATHER WHITENER) No Dianne Johnson, RN Note: Patient will [...] as of this encounter Care Teams Director Web Relationship Specialty Start Date End Date Sanjeev Montez DO [address] [place] [address] PCP - General FAMILY PRACTICE 09/25/20 Dianne Johnson, RN [address] [place] [address] Rail Project Engineer (Ambulatory) REGISTERED NURSE 08/14/20 documented as of this encounter
--- OUTSIDE RECORDS SUMMARY | 2024-03-15 00:59 | XMS_ITS | Encounter Summary ---
Author Organization [facility] Address [facility] [place] [address] [place] [address] Care Team Providers Care Lumber Tailer Name Role Phone Dianne Johnson RN Unavailable [phone] Sanjeev Webster DO Primary Care Provider + Reason for Visit * Reason Onset Date Comments Pre-visit Gap Closure 07/02/2022 Encounter Details Date Type Department Care Team (Late st Contact Info) Description 07/02/2022 Patient Outreach [facility] Family & Internal Medicine [id number] [place] [address] Sanjeev Webster DO [address] [place] [address] Pre-visit Gap Closure Social History Tobacco Use Types Packs/Day Years [...] slept in a [facility] (including now)? No 04/03/2022 Comments No Sex [...] Author Status Yes 11/05/2021 7:00 PM CDT Stehpanie Rodriguez R N Active * Do you [...] documented in this encounter Progress Notes * Bora Taveras - 07/02/2022 9:32 AM CDT Preventive Screenings: Breast Cancer Screening: N/A Notes: Colorectal Cancer Screening: N/A Notes: Diabetic Eye Exam: N/A Notes: Falls Risk Screening: Up to Date Notes: Tobacco Cessation: N/A Notes: Labs: BMP/CMP: N/A Notes: Hemoglobin A1c: N/A Notes: Lipid: N/A Notes: Urine Albumin-Creatinine Ratio: N/A Notes: Immunizations: Pneumococcal: Up to Date Notes: Shingles: Needs Follow Up Notes: documented in this encounter Plan of Treatment Upcoming Encounters Date Type Department Care Team (Late st Contact Info) Description 04/14/2024 2:00 PM SHOES SALESPERSON Office Visit [facility] Multispecialty Care - [address], [address] [place] [address] Julio Pulido MD [address] [place] [phone] documented as of this encounter Goals Goal Patient Goal Type Associated Problems Recent Progress Patient-Stated? Author Health - patient able to perform ADLs independently General On track(2023 9:49 AM CDT) Dianne Corona, RN Note: 12/17/23: Patient stated she is independent with ASL's. Establish Plan for Symptom Monitoring-CHF General On track(2023 11:36 AM SHOES SALESPERSON) Dianne Corona RN Note: Patient will recognize [...] Symptom Monitoring-COPD General On track(2023 11:36 AM SHOES SALESPERSON) Dianne Corona RN Note: Patient will recognize [...] Symptom Monitoring-DM General On track(2023 4:33 PM SHOES SALESPERSON) Dianne Corona RN Note: Patient will manage [...] Symptom Monitoring-HTN General On track(2023 4:33 PM SHOES SALESPERSON) No Dianne Johnson, RN Note: Patient will [...] documented as of this encounter Care Teams Lumber Tailer Relationship Specialty Start Date End Date Sanjeev Webster DO [address] [place] [address] [id number] PCP - General FAMILY PRACTICE 09/25/20 Dianne Johnson, RN [address] [place] [address] Hydraulic Miner (Ambulatory) REGISTERED NURSE 08/14/20 documented as of this encounter
--- OUTSIDE RECORDS SUMMARY | 2024-03-15 00:59 | XMS_ITS | Encounter Summary ---
Author Organization [facility] Address [facility] [place] [address] [place] [address] Care Team Providers Care Project Coach Name Role Phone Dianne Johnson RN Unavailable [phone] Sanjeev Webster DO Primary Care Provider + Encounter Details Date Type Department Care Team (Latest Contact Info) Description 08/26/2022 Travel Social History Tobacco Use Types Packs/Day [...] Recorded Patient Health Questionnaire-2 Score 3 07/08/2022 [facility] [...] st Contact Info) Description 04/14/2024 2:00 PM HOISTING LABORER Office Visit [facility] Multispecialty Care - [facility] [address] [facility], [address] [place] [address] Julio Pulido MD [address] [place] [address] documented as of this encounter Goals Goal Patient Goal Type Associated Problems Recent Progress Patient-Stated? Author Health - patient able to perform ADLs independently General On track(2023 9:49 AM CDT) No Dianne Johnson RN Note: 12/17/23: Patient stated she is independent with ASL's. Establish Plan for Symptom Monitoring-CHF General On track(2023 11:36 AM HOISTING LABORER) Dianne Corona RN Note: Patient will recognize [...] Symptom Monitoring-COPD General On track(2023 11:36 AM HOISTING LABORER) Dianne Corona RN Note: Patient will recognize [...] Symptom Monitoring-DM General On track(2023 4:33 PM HOISTING LABORER) Dianne Corona RN Note: Patient will manage [...] Symptom Monitoring-HTN General On track(2023 4:33 PM HOISTING LABORER) Dianne Corona RN Note: Patient will monitor [...] documented as of this encounter Care Teams Project Coach Relationship Specialty Start Date End Date Sanjeev Webster DO [address] [place] [id number] PCP - General FAMILY PRACTICE 09/25/20 Dianne Johnson, RN [address] [place] [address] Resource Specialist (Ambulatory) REGISTERED NURSE 08/14/20 documented as of this encounter
--- OUTSIDE RECORDS SUMMARY | 2024-03-15 00:59 | XMS_ITS | Encounter Summary ---
Author Organization [facility] Address [facility]6 [facility] [place] [address] [place] [address] Care Team Providers Care Pipeline Gang Supervisor Name Role Phone Dianne Johnson RN Unavailable [phone] Sanjeev Webster DO Primary Care Provider + Reason for Visit * Reason Onset Date Comments Appointment Request 07/15/2022 Encounter Details Date Type Department Care Team (Late st Contact Info) Description 07/15/2022 Telephone [facility] Family & Internal Medicine [id number] [place] [address] Sanjeev Webster DO [facility] [place] [address] Appointment Request Social History Tobacco [...] Author Status Yes 11/05/2021 7:00 PM CDT Acti ve * Do you have serious difficulty walking [...] Progress Notes * Tricia Gonzales CMA - 07/15/2022 8:15 AM CDT Calling patient to schedule EE visit My direct line is [phone]. documented in this encounter Plan of Treatment Upcoming Encounters Date Type Department Care Team (Late st Contact Info) Description 04/14/2024 2:00 PM LINE PALLETIZER Office Visit [facility] Multispecialty Care - [facility] [address] [facility], [address] [place] [address] Julio Pulido MD [address] [place] [address] documented as of this encounter Goals Goal Patient Goal Type Associated Problems Recent Progress Patient-Stated? Author Health - patient able to perform ADLs independently General On track(2023 9:49 AM CDT) Dianne Corona RN Note: 12/17/23: Patient stated she is independent with ASL's. Establish Plan for Symptom Monitoring-CHF General On track(2023 11:36 AM LINE PALLETIZER) Dianne Corona RN Note: Patient will recognize [...] Symptom Monitoring-COPD General On track(2023 11:36 AM LINE PALLETIZER) Dianne Corona RN Note: Patient will recognize [...] Symptom Monitoring-DM General On track(2023 4:33 PM LINE PALLETIZER) Dianne Corona RN Note: Patient will manage [...] Symptom Monitoring-HTN General On track(2023 4:33 PM LINE PALLETIZER) Dianne Corona RN Note: Patient will monitor [...] documented as of this encounter Care Teams Pipeline Gang Supervisor Relationship Specialty Start Date End Date Sanjeev Webster DO [address] [place] [id number] PCP - General FAMILY PRACTICE 09/25/20 Dianne Johnson, RN [address] [place] [address] Stretcher Drier Operator (Ambulatory) REGISTERED NURSE 08/14/20 documented as of this encounter
--- OUTSIDE RECORDS SUMMARY | 2024-03-15 01:00 | XMS_ITS | Encounter Summary ---
Author Organization [facility] Address [address] [facility] [place] [address] [place] [address] Care Team Providers Care Shrimp Trawler Captain Name Role Phone Dianne Johnson RN Unavailable [phone] Sanjeev Webster DO Primary Care Provider + Encounter Details Date Type Department Care Team (Latest Contact Info) Description 06/03/2022 Travel Social History Tobacco Use Types Packs/Day [...] Contact Info) Description 04/14/2024 2:00 PM RN CLINICAL DOCUMENTATION Office Visit [facility] Multispecialty Care - [facility] [address] [facility], [address] [place] [address] Julio Pulido MD [address] [place] [address] documented as of this encounter Goals Goal Patient Goal Type Associated Problems Recent Progress Patient-Stated? Author Health - patient able to perform ADLs independently General On track(2023 9:49 AM CDT) Dianne Corona, RN Note: 12/17/23: Patient stated she is independent with ASL's. Establish Plan for Symptom Monitoring-CHF General On track(2023 11:36 AM RN CLINICAL DOCUMENTATION) Dianne Corona, RN Note: Patient will recognize [...] Monitoring-COPD General On track(2023 11:36 AM RN CLINICAL DOCUMENTATION) Dianne Corona, RN Note: Patient will recognize [...] Monitoring-DM General On track(2023 4:33 PM RN CLINICAL DOCUMENTATION) Dianne Corona, RN Note: Patient will manage [...] Monitoring-HTN General On track(2023 4:33 PM RN CLINICAL DOCUMENTATION) Dianne Corona, RN Note: Patient will monitor [...] documented as of this encounter Care Teams Shrimp Trawler Captain Relationship Specialty Start Date End Date Sanjeev Webster DO [address] [place] [phone] PCP - General FAMILY PRACTICE 09/25/20 Dianne Johnson, RN [address] [place] [address] Cigarette Making Machine Hopper Feeder (Ambulatory) REGISTERED NURSE 08/14/20 documented as of this encounter
--- OUTSIDE RECORDS SUMMARY | 2024-03-15 01:00 | XMS_ITS | Encounter Summary ---
Author Organization [facility] Address [facility] [address] [place] [address] Care Team Providers Care Motorcycle Maker Name Role Phone Dianne Johnson RN Unavailable [phone] Sanjeev Montez DO Primary Care Provider + Reason for Visit * Reason Comments Shortness Of Breath The patient states s he has had to use her inhaler today and has not used them in a while. Depression Patient states she n oticed it after increasing her nerbve medication Nail Problem Patient states she w ould like to see if one of her medications could be causing her nails to break. Encounter Details Date Type Department Care Team (Late st Contact Info) Description 04/17/2022 10:40 AM VICE PRESIDENT QUALITY IMPROVEMENT Office Visit [facility] Family & Internal Medicine - [place] [id number] [place] [address] Sanjeev Montez DO [facility] [place] [address] Shortness Of Breath (The patient states she has had to use her inhaler today and has not used them in a while. ); Depression (Patient states she noticed it after increasing her nerbve medication ); Nail Problem (Patient states she would like to see if one of her medications could be causing her nails to break. ) Social History Tobacco Use Types Packs/Day Years Used Date Smoking Tobacco: Never Smokeless Tobacco: Never Tobacco Cessation:Counseling Given: Not [...] suspected to have Coronavirus/COVID-19? No / Unsure 04/17/2022 10:28 AM VICE PRESIDENT QUALITY IMPROVEMENT documented as of this encounter Last Filed Vital Signs Vital Sign Reading Time Taken Comments Blood Pressure 108/64 04/17/2022 11:16 AM VICE PRESIDENT QUALITY IMPROVEMENT Pulse 89 04/17/2022 11:16 AM VICE PRESIDENT QUALITY IMPROVEMENT Temperature 36.3 ??C (97.3 ??F) 04/17/2022 11:[address] Respiratory Rate 16 04/17/2022 11:16 AM VICE PRESIDENT QUALITY IMPROVEMENT Oxygen Saturation 98% 04/17/2022 11:16 AM VICE PRESIDENT QUALITY IMPROVEMENT Inhaled Oxygen Concentration - - Weight 79 kg (174 lb 1.6 oz) 04/17/2022 11:16 AM VICE PRESIDENT QUALITY IMPROVEMENT Height 165.1 cm (5' 5 ) 04/17/2022 11:16 AM VICE PRESIDENT QUALITY IMPROVEMENT Body Mass Index 28.97 04/17/2022 11:16 AM VICE PRESIDENT QUALITY IMPROVEMENT documented in this encounter Functional Status * [...] encounter Progress Notes * Sanjeev Montez, - 04/17/2022 10:40 AM CST Images from the original note were not included. GENERAL OFFICE VISIT Encounter Date: 04/17/2022 Chief Complaint: 76-year-old female presents for Shortness Of Breath (The patient states she has had to use her inhaler today and has not used them in a while. ), Depression (Patient states she noticed it after increasing her nerbve medication ), and Nail Problem (Patient states she would like to see if one of her medications could be causing her nails to break. ) HPI: Pt presents to discuss depressive symptoms. We increased her venlafaxine at her last OV. Counterintuitively, her symptoms have worsened since we increased this. No other notable changes; no SI. Pt is asking about her nails. She notes some brittleness. She is asking if any of her medications may cause this. Total protein levels were WNL on most recent check in March. Pt notes some SOB and LE edema. Pt is up about 3 lbs since last OV. Pt did use her albuterol this morning which did help. Her lasix had to be stopped due to potassium issues. She is going ot have a BMP prior to her next OV on 05/01/22. Pt's PT/INR is 3.3 today. Pt needs a refill of her pain medication. Review of Systems Constitutional: Positive for fatigue. Negative for fever. Respiratory: Positive for shortness of breath. Cardiovascular: Positive for leg swelling. Psychiatric/Behavioral: See HPI Patient Active Problem List Diagnosis ??? Abnormal stress test ??? Chronic anticoagulation ??? Coronary artery disease involving quartz valley coronary artery of quartz valley heart without angina pectoris ??? Dyspnea on [...] associated with type 2 diabetes mellitus (CMS/HCC) Past Medical History: Diagnosis Date ??? 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 Anxiety ??? Atrial flutter (CMS/HCC) ??? Cataract ??? Chronic anticoagulation due to mechanical heart valve ??? Chronic pain ??? Diabetes mellitus (CMS/HCC) ??? H/O mechanical aortic valve replacement 2003 ??? Hypertension Past Surgical History: Procedure Laterality Date ??? REPAIR HEART WOUND Family History Problem Relation Name Age of Onset ??? Heart Father ??? Diabetes Father ??? Heart Mother Social History Socioeconomic History ??? Marital status: Spouse name: Not on file ??? Number of children: Not on file ??? Years of education: Not on file ??? Highest education level: Not on file Occupational History ??? Not on file Tobacco Use ??? Smoking status: Never ??? Smokeless tobacco: Never ??? Tobacco comments: [...] Not on file Housing Stability: Low Risk ??? Unable to Pay for Housing in the Last Year: No ??? Number of Places Lived in the Last Year: 1 ??? Unstable Housing in the Last Year: No Immunization History Administered Date(s) Administered ? ? Fluzone High Dose - >Age 65 (Prefilled Syringe) 12/03/2017, 12/13/2018, 02/27/2020, 12/13/2020, 12/23/2021 ??? Influenza 02/26/2012, 12/02/2012, 11/30/2013, 12/23/2013, 12/27/2014 ??? Influenza Adult (Generic) 02/26/2012, 11/30/2013, 12/07/2014, 12/25/2016, 12/03/2017, 12/13/2018 ??? [employer] COVID-19 (ESTEVES CAP), MRNA, LNP-S, PF, 30 MCG/0.3 ML ROGERS-SUCROSE, IM 08/29/2021 ??? PFIZER COVID-19 (ORIGINAL FORMULATION, PURPLE CAP), MRNA, LNP-S, PF, 30 MCG/0.3 ML DOSE 05/10/2020, 06/01/2020, 02/23/2021 ??? Pneumococcal (Pneumovax 23) 03/30/2017 ??? Pneumococcal (Prevnar 13) 06/15/2015 ??? Td 07/22/2014 ??? Td (Generic) 07/22/2014 ??? Td (TDVAX) 07/22/2014 ??? Tdap (Boostrix) 09/05/2020 ??? Tdap (Generic) 06/05/2016, 09/05/2020 ??? Tetanus/Diptheria 07/22/2014 ??? Zoster (Zostavax) [address] Unt/0.65Ml 12/25/2015 Current Outpatient Medications Medication Sig Dispense Refill ??? acetaminophen (TYLENOL) 500 MG tablet Take 500 mg by mouth daily as needed. No more then 2500 mg per day. ??? albuterol sulfate HFA 108 (90 Base) MCG/ACT inhaler Inhale 2 puffs into the lungs every 6 (six)hours as needed for Wheezing. 18 g 1 ??? ALPRAZolam (XANAX) 0.25 MG tablet Take 1 tablet (0.25 mg total) by mouth nightly. 30 tablet 0 ??? Cholecalciferol (VITAMIN D3) 25 MCG (1000 UT) Cap Take 1,000 Units by mouth daily. ??? FEROSUL 325 (65 Fe) MG tablet Take 1 tablet by mouth once daily 90 tablet 0 ??? furosemide (LASIX) 20 MG tablet Take 2 tablets (40 mg total) by mouth daily. 90 tablet 0 ??? gabapentin (NEURONTIN) 300 MG capsule Take 1 capsule by mouth twice daily 180 capsule 0 ??? HYDROcodone-acetaminophen (NORCO) 10-325 MG tablet Take 1 tablet by mouth every 6 (six) hours as needed for Pain. Indications: Chronic Pain Do not take with alprazolam. 30 tablet 0 ??? lisinopril (PRINIVIL) 20 MG tablet Take [...] mouth once daily 90 capsule 1 ??? potassium chloride CR (K-TAB) 10 MEQ [...] mouth once daily 30 tablet 0 ??? amiodarone (PACERONE) 100 MG tablet Take 100 mg by mouth daily. No current facility-administered medications for this visit. Facility-Administered Medications Ordered in Other Visits Medication Dose Route Frequency Provider Last Rate Last Admin ??? denosumab (PROLIA) injection 60 mg 60 mg Subcutaneous Once Panda Moreno MD Current Outpatient Medications on File Prior to Visit Medication Sig ??? acetaminophen (TYLENOL) 500 MG tablet Take 500 mg by mouth daily as needed. No more then 2500 mg per day. ??? albuterol sulfate HFA 108 (90 Base) MCG/ACT inhaler Inhale 2 puffs into the lungs every 6 (six)hours as needed for Wheezing. ??? ALPRAZolam (XANAX) 0.25 MG tablet Take 1 tablet (0.25 mg total) by mouth nightly. ??? Cholecalciferol (VITAMIN D3) 25 MCG (1000 UT) Cap Take 1,000 Units by mouth daily. ??? FEROSUL 325 (65 Fe) MG tablet Take 1 tablet by mouth once daily ??? furosemide (LASIX) 20 MG tablet Take 2 tablets (40 mg total) by mouth daily. ??? gabapentin (NEURONTIN) 300 MG capsule Take 1 capsule by mouth twice daily ??? lisinopril (PRINIVIL) 20 MG tablet Take 1 tablet by mouth once daily ??? methIMAzole (TAPAZOLE) 10 MG tablet Take 1 tablet by mouth once daily ??? metoprolol tartrate (LOPRESSOR) 25 MG tablet Take 0.5 tablets (12.5 mg total) by mouth 2 (two) times daily. ??? omeprazole (PRILOSEC) 20 MG capsule Take 1 capsule by mouth once daily ??? potassium chloride CR (K-TAB) 10 MEQ Tab CR tablet Take 1 tablet by mouth once daily ??? rosuvastatin (CRESTOR) 5 MG tablet TAKE 1 TABLET BY MOUTH NIGHTLY AT BEDTIME ??? warfarin (COUMADIN) 1 MG tablet Take 1 tablet by mouth once daily ??? warfarin (COUMADIN) 6 MG tablet Take 1 tablet by mouth once daily ??? amiodarone (PACERONE) 100 MG tablet Take 100 mg by mouth daily. Current Facility-Administered Medications on File Prior to Visit Medication ??? denosumab (PROLIA) injection 60 mg Allergies Allergen Reactions ??? Atorvastatin Leg Pain Leg pain/cramps. Resolved after stopping. ??? Tape Contact Dermatitis ??? Bacitracin Other (see comment) ??? Benzalkonium Other (see comment) ??? Gramicidin Other (see comment) ??? Hydrocortisone Other (see comment) ??? Neomycin Other (see comment) ??? Polymyxin B Other (see comment) Objective: Filed Vitals: 04/17/22 1116 BP: 108/64 Pulse: 89 Resp: 16 Temp: 97.3 ??F (36.3 ??C) TempSrc: Skin SpO2: 98% Weight: 79 kg (174 lb 1.6 oz) Height: 5' 5 (1.651 m) Physical Exam [...] Tenderness: There is no abdominal tenderness. Musculoskeletal: Right lower leg: Edema present. Left lower leg: Edema present. Neurological: Mental Status: She is alert. Assessment & Plan: Radha was seen today for shortness of breath , depression and nail problem. Diagnoses and all orders for this visit: Current mild episode of major depressive disorder without prior episode (CMS/HCC) - venlafaxine XR (EFFEXOR-XR) 150 MG 24 hr capsule; Take 1 capsule (150 mg total) by mouth daily. Coronary artery disease involving quartz [place] coronary artery of quartz [place] heart without angina pectoris Chronic diastolic heart failure (CMS/HCC) - XR CHEST PA+LAT; Future - BASIC METABOLIC PANEL; Future - BASIC METABOLIC PANEL Other chronic pain - HYDROcodone-acetaminophen (NORCO) 10-325 MG tablet; Take 1 tablet by mouth every 6 (six) hours asneeded for Pain. Indications: Chronic Pain Do not take with alprazolam. Current use of anticoagulant therapy - PROTIME/INR, FINGERSTICK - PROTIME/INR, VENOUS; Future - PROTIME/INR, VENOUS Discussion/Summary: Discussed counterintuitive response to increase in venlafaxine. Will return to 1 or 50 mg. Patient would like to return to 1 or 50 mg prior to adding on any other medications. We will reassess in 2 to 4 weeks. We will restart furosemide at 40 mg daily and will obtain BMP in 1 week. Repeat PT/INR in1 week and continue current dose of warfarin. Will obtain chest x-ray today. Refilled medications. Will have patient follow-up in 2 weeks as scheduled. Patient verbalized understanding. Sanjeev Montez DO PRESIDENT QUALITY IMPROVEMENT documented in this encounter Plan of Treatment Upcoming Encounters Date Type Department Care Team (Late st Contact Info) Description 04/14/2024 2:00 PM VICE PRESIDENT QUALITY IMPROVEMENT Office Visit [facility] Multispecialty Care - [facility] [address] [facility], [address] [place] [phone] Julio Pulido MD [address] [place] [address] Scheduled Orders Name Type Priority Associated Diagnoses Orde r Schedule PROTIME/INR, VENOUS Lab Routine Current use of anticoagulant therapy Expected: 04/17/2022, Expires: 04/17/2023 BASIC METABOLIC PANEL Lab Routine Chronic diastolic heart failure ([facility]/HCC [facility]) Expected: 04/17/2022, Expires: 04/17/2023 documented as of this encounter Goals Goal Patient Goal Type Associated Problems Recent Progress Patient-Stated? Author Health - patient able to perform ADLs independently General On track(2023 9:49 AM CDT) Dianne Corona, DALE Note: 12/17/23: Patient stated she is independent with ASL's. Establish Plan for Symptom Monitoring-CHF General On track(2023 11:36 AM VICE PRESIDENT QUALITY IMPROVEMENT) Dianne Corona, RN Note: Patient will recognize [...] General On track(2023 11:36 AM VICE PRESIDENT QUALITY IMPROVEMENT) Dianne Corona, RN Note: Patient will recognize [...] General On track(2023 4:33 PM VICE PRESIDENT QUALITY IMPROVEMENT) Dianne Corona RN Note: Patient will manage [...] General On track(2023 4:33 PM VICE PRESIDENT QUALITY IMPROVEMENT) Dianne Corona RN Note: Patient will monitor [...] Associated Diagnosis Comments PROTHROMBIN TIME, FINGERSTICK Routine 04/17/2022 Current use of anticoagulant therapy documented in this encounter Results * XR CHEST PA+LAT (04/17/2022 12:03 PM VICE PRESIDENT QUALITY IMPROVEMENT) Anatomical Region Laterality Modality Chest Radiographic Jennifer ging 04/17/2022 12:0 7 PM VICE PRESIDENT QUALITY IMPROVEMENT Impressions 04/17/2022 12:09 PM VICE PRESIDENT QUALITY IMPROVEMENT IMPRESSION: No radiographic evidence of active chest disease. Ordered By: SANJEEV MONTEZ Interpreted By: Rao Hoyt MD, 04/17/2022 12:07 PM Narrative 04/17/2022 12:09 PM VICE PRESIDENT QUALITY IMPROVEMENT Examination: XR CHEST PA+LAT Exam time: 04/17/2022 11:50 AM Clinical history: Shortness of breath. History of heart failure. Comparison: November 01, 2021 PA and lateral chest Technique: Upright PA and lateral views Findings: Cardiac silhouette and pulmonary vasculature are within normal limits. No evidence of focal atelectasis or consolidation. No evidence of pleural effusion. Interval resolution of previously identified small bilateral pleural effusions and bibasilar atelectasis present on prior exam. Median sternotomy and prior CABG changes. Stable appearance of sternotomy wires which appear broken and the midportion. Overall, no radiographic evidence of active chest disease. Procedure Note Rao Hoyt MD - 04/17/2022 Examination: XR CHEST PA+LAT Exam time: 04/17/2022 11:50 AM Clinical history: Shortness of breath. History of heart failure. Comparison: November 01, 2021 PA and lateral chest Technique: Upright PA and lateral views Findings: Cardiac silhouette and pulmonary vasculature are within normallimits. No evidence of focal atelectasis or consolidation. No evidence ofpleural effusion. Interval resolution of previously identified smallbilateral pleural effusions and bibasilar atelectasis present on priorexam. Median sternotomy and prior CABG changes. Stable appearance ofsternotomy wires which appear broken and the midportion. Overall, noradiographic evidence of active chest disease. IMPRESSION: No radiographic evidence of active chest disease. Ordered By: SANJEEV MONTEZ Interpreted By: Rao Hoyt MD, 04/17/2022 12:07 PM Sanjeev Montez DO GENERAL IMAGING Final Re sult * PROTIME/INR, FINGERSTICK (04/17/2022) INR WHOLE BLOOD 3.30 [facility] 04/17/2022 us Sanjeev Montez DO LABORATORY Final Re sult [facility] [address] [place] [address], documented in this encounter Visit Diagnoses Diagnosis Current mild episode of major depressive disorder without prior episode ([facility])- Primary Coronary artery disease involving quartz [place] coronary artery of quartz valley heart without angina pectoris Chronic diastolic heart failure (CMS/HCC HHS/HCC) Chronic diastolic heart failure Other chronic pain Current use of anticoagulant therapy documented in this encounter Additional Health Concerns Assessment Noted Time PHQ-9 Depression Total Score: 3 12/24/19 22 11:48 AM CDT documented as of this encounter Care Teams Motorcycle Maker Relationship Specialty Start Date End Date Sanjeev Montez DO [facility] [place] [address] PCP - General FAMILY PRACTICE 09/25/20 Dianne Johnson, RN [address] [place] [address] Revenue Stamper (Ambulatory) REGISTERED NURSE 08/14/20 documented as of this encounter
--- OUTSIDE RECORDS SUMMARY | 2024-03-15 01:00 | XMS_ITS | Encounter Summary ---
Author Organization [facility] Address Critical access hospital6 [facility] [place] [address] [place] [address] Care Team Providers Care Private Sector Executive Name Role Phone Dianne Johnson RN Unavailable [phone] Sanjeev Webster DO Primary Care Provider + Reason for Visit * Reason Onset Date Comments Appointment Request 05/08/2022 Lab appointm ent for Protime Encounter Details Date Type Department Care Team (Late st Contact Info) Description 05/08/2022 Telephone [facility] Medical Group Family & Internal Medicine [address] [address] Sanjeev Webster DO [address] [place] [address] Appointment Request (Lab appointment for Protime) Social History Tobacco Use Types Packs/Day Years [...] money to buy more. Never true 04/03/19 Within the past 12 months, t he [...] suspected to have Coronavirus/COVID-19? No / Unsure 05/01/2022 12:35 PM CONDUIT MECHANIC documented as of this encounter Functional Status [...] documented in this encounter Progress Notes * Adrianne Alford - 05/09/2022 10:13 AM CST I contacted pt. She is scheduled for 05/15 UIT MECHANIC * Dianne Johnson, DALE - 05/08/2022 10:31 AM CST Patient requesting lab appointment for next week to get a Protime. Please contact her. Thank you. UIT MECHANIC documented in this encounter Plan of Treatment Upcoming Encounters Date Type Department Care Team (Late st Contact Info) Description 04/14/2024 2:00 PM CONDUIT MECHANIC Office Visit [facility] Medical Group Multispecialty Care - [facility] [address] [facility], [address] [place] [phone] Julio Pulido MD [address] [place] [id number] documented as of this encounter Goals Goal Patient Goal Type Associated Problems Recent Progress Patient-Stated? Author Health - patient able to perform ADLs independently General On track(2023 9:49 AM CDT) Dianne Corona, RN Note: 12/17/23: Patient stated she is independent with ASL's. Establish Plan for Symptom Monitoring-CHF General On track(2023 11:36 AM CONDUIT MECHANIC) Dianne Corona RN Note: Patient will [...] Symptom Monitoring-COPD General On track(2023 11:36 AM CONDUIT MECHANIC) Dianne Corona RN Note: Patient will [...] Symptom Monitoring-DM General On track(2023 4:33 PM CONDUIT MECHANIC) Dianne Corona RN Note: Patient will [...] Symptom Monitoring-HTN General On track(2023 4:33 PM CONDUIT MECHANIC) No Johnson, Dianne R, RN Note: Patient [...] documented as of this encounter Care Teams Private Sector Executive Relationship Specialty Start Date End Date Sanjeev Webster DO [address] [place] [id number] PCP - General FAMILY PRACTICE 09/25/20 Dianne Johnson, RN [address] [place] [address] Loading Rack Supervisor (Ambulatory) REGISTERED NURSE 08/14/20 documented as of this encounter
--- OUTSIDE RECORDS SUMMARY | 2024-03-15 01:00 | XMS_ITS | Encounter Summary ---
Author Organization [facility] Address [address] [facility] [place] [address] [place] [address] Care Team Providers Care Dining Room Attendant Name Role Phone Dianne Johnson RN Unavailable [phone] Sanjeev Webster DO Primary Care Provider + Encounter Details Date Type Department Care Team (Late st Contact Info) Description 04/16/2022 Abstract [facility] Medical Group Family & Internal Medicine [address] [address] Abstract, Doc [facility] Social History Tobacco Use Types Packs/Day Years Used Date Smoking Tobacco: Never Smokeless Tobacco: Never Comments:non smoker Alcohol Use [...] suspected to have Coronavirus/COVID-19? No / Unsure 04/08/2022 2:14 PM PEDIATRICIAN/MEDICAL DOCTOR documented as of this encounter Functional Status [...] st Contact Info) Description 04/14/2024 2:00 PM PEDIATRICIAN/MEDICAL DOCTOR Office Visit [facility] Medical Group Multispecialty Care - [facility] [address] [facility], [address] [place] [address] Julio Pulido MD [address] [place] [address] documented as of this encounter Goals Goal Patient Goal Type Associated Problems Recent Progress Patient-Stated? Author Health - patient able to perform ADLs independently General On track(2023 9:49 AM CDT) Dianne Corona RN Note: 12/17/23: Patient stated she is independent with ASL's. Establish Plan for Symptom Monitoring-CHF General On track(2023 11:36 AM PEDIATRICIAN/MEDICAL DOCTOR) Dianne Corona, RN Note: Patient will [...] Symptom Monitoring-COPD General On track(2023 11:36 AM PEDIATRICIAN/MEDICAL DOCTOR) Dianne Corona, RN Note: Patient will [...] Symptom Monitoring-DM General On track(2023 4:33 PM PEDIATRICIAN/MEDICAL DOCTOR) Dianne Corona RN Note: Patient will [...] Symptom Monitoring-HTN General On track(2023 4:33 PM PEDIATRICIAN/MEDICAL DOCTOR) Dianne Corona, RN Note: Patient will monitor B/P several times per week , record readings and report to physician or CC if B/P consistently >130/80 Take your medications as prescribed. Follow up with your provider as scheduled. Take your blood pressure at least several times a week if able. documented as of this encounter Procedures Procedure Name Priority Date/Time Associated Diagnosis Comments HEMOGLOBIN, GLYCOSYLATED Routine 01/13/2022 documented in this encounter Results * HEMOGLOBIN, GLYCOSYLATED (01/13/2022) HGB A1C 6.2 % 01/13/2022 us Doc [facility] Abstract LABORATORY Final Result documented in this encounter Visit Diagnoses Not on filedocumented in this encounter Additional Health Concerns Assessment Noted Time PHQ-9 Depression Total Score: 3 12/24/19 22 11:48 AM CDT documented as of this encounter Care Teams Dining Room Attendant Relationship Specialty Start Date End Date Sanjeev Webster DO [address] [place] [phone] PCP - General FAMILY PRACTICE 09/25/20 Dianne Johnson, RN [address] [place] [address] Electrical Inspector (Ambulatory) REGISTERED NURSE 08/14/20 documented as of this encounter
--- OUTSIDE RECORDS SUMMARY | 2024-03-15 01:00 | XMS_ITS | Encounter Summary ---
Author Organization [facility] Address Formerly [facility]6 [facility] [place] [address] [place] [address] Care Team Providers Care Content Editor Name Role Phone Dianne Johnson RN Unavailable [phone] Sanjeev Webster DO Primary Care Provider + Reason for Visit * Reason Onset Date Comments Follow Up Call 04/17/2022 Encounter Details Date Type Department Care Team (Late st Contact Info) Description 04/17/2022 Telephone [facility] Family & Internal Medicine [id number] [place] [address] Sanjeev Webster DO [facility] [place] [address] Follow Up Call Social History [...] Coronavirus/COVID-19? No / Unsure 04/17/2022 10:28 AM INDUSTRIAL TRACTOR DRIVER documented as of this encounter Functional Status [...] Progress Notes * Sanjeev Webster DO - 04/17/2022 3:53 PM CST All correct, thank you. STRIAL TRACTOR DRIVER * Sanjeev Webster DO - 04/17/2022 12:48 PM CST Yes, continue same dose of warfarin. STRIAL TRACTOR DRIVER * Sanjeev Webster DO - 04/17/2022 12:26 PM CST Saw her today. Start on furosemide 20 mg, 2 tabs daily. I reduced her venlafaxine to 150 mg daily and sent a new script. I ordered a PT/INR and BMP for her to do in 1 week. STRIAL TRACTOR DRIVER * Dianne Johnson RN - 04/17/2022 10:21 AM CST Izzy (patient's [id number]) on [employer]IP[employer] left a message. She is requesting a call today if any of patient's medications are changed or new medications etc. She takes care of the pill systems requirements planner. She can be reached at [phone]. She works during the day. Leave a detailed message. Thank you. STRIAL TRACTOR DRIVER documented in this encounter Plan of Treatment Upcoming Encounters Date Type Department Care Team (Late st Contact Info) Description 04/14/2024 2:00 PM INDUSTRIAL TRACTOR DRIVER Office Visit [facility] Multispecialty Care - [facility] [address], [address] [place] [id number] Julio Pulido MD 3 [place] [address] documented as of this encounter Goals Goal Patient Goal Type Associated Problems Recent Progress Patient-Stated? Author Health - patient able to perform ADLs independently General On track(2023 9:49 AM CDT) Dianne Corona RN Note: 12/17/23: Patient stated she is independent with ASL's. Establish Plan for Symptom Monitoring-CHF General On track(2023 11:36 AM INDUSTRIAL TRACTOR DRIVER) Dianne Corona, RN Note: Patient will recognize [...] Monitoring-COPD General On track(2023 11:36 AM INDUSTRIAL TRACTOR DRIVER) Dianne Corona RN Note: Patient will recognize [...] Monitoring-DM General On track(2023 4:33 PM INDUSTRIAL TRACTOR DRIVER) Dianne Corona RN Note: Patient will manage [...] Monitoring-HTN General On track(2023 4:33 PM INDUSTRIAL TRACTOR DRIVER) Dianne Corona RN Note: Patient will monitor [...] documented as of this encounter Care Teams Content Editor Relationship Specialty Start Date End Date Sanjeev Webster DO [address] [place] [address] PCP - General FAMILY PRACTICE 09/25/20 Dianne Johnson RN [address] [place] [address] Manager Card (Ambulatory) REGISTERED NURSE 08/14/20 documented as of this encounter
--- OUTSIDE RECORDS SUMMARY | 2024-03-15 01:00 | XMS_ITS | Encounter Summary ---
Author Organization [facility] Address [address] [facility] [place] [address] [place] [address] Care Team Providers Care Videogame Designer Name Role Phone Dianne Johnson RN Unavailable [phone] Sanjeev Webster DO Primary Care Provider + Encounter Details Date Type Department Care Team (Latest Contact Info) Description 05/20/2022 Travel Social History Tobacco Use Types Packs/Day [...] slept in a fdc (including now)? No 04/03/2022 Comments No Sex [...] suspected to have Coronavirus/COVID-19? No / Unsure 05/20/2022 12:34 PM CDT documented as of this encounter [...] st Contact Info) Description 04/14/2024 2:00 PM 8TH GRADE TEACHER Office Visit [facility] Multispecialty Care - [facility] 3 [facility], [address] [place] [address] Julio Pulido MD 3 [place] [address] documented as of this encounter Goals Goal Patient Goal Type Associated Problems Recent Progress Patient-Stated? Author Health - patient able to perform ADLs independently General On track(2023 9:49 AM CDT) Dianne Corona, RN Note: 12/17/23: Patient stated she is independent with ASL's. Establish Plan for Symptom Monitoring-CHF General On track(2023 11:36 AM 8TH GRADE TEACHER) Dianne Corona, RN Note: Patient will recognize [...] Symptom Monitoring-COPD General On track(2023 11:36 AM 8TH GRADE TEACHER) Dianne Corona, RN Note: Patient will recognize [...] Symptom Monitoring-DM General On track(2023 4:33 PM 8TH GRADE TEACHER) Dianne Corona, RN Note: Patient will manage [...] Symptom Monitoring-HTN General On track(2023 4:33 PM 8TH GRADE TEACHER) Dianne Corona, RN Note: Patient will [...] documented as of this encounter Care Teams Videogame Designer Relationship Specialty Start Date End Date Sanjeev Webster DO [address] [place] [address] PCP - General FAMILY PRACTICE 09/25/20 Dianne Johnson, RN [address] [place] [address] Supervisor Lens Generating (Ambulatory) REGISTERED NURSE 08/14/20 documented as of this encounter
--- OUTSIDE RECORDS SUMMARY | 2024-03-15 01:00 | XMS_ITS | Encounter Summary ---
Author Organization [facility] Address [facility] [address] [place] [address] Care Team Providers Care Industrial Electrician Journeyman Name Role Phone Dianne Johnson RN Unavailable [phone] Sanjeev Webster DO Primary Care Provider + Reason for Visit * Reason Onset Date Comments Pain 05/30/2022 Encounter Details Date Type Department Care Team (Late st Contact Info) Description 05/30/2022 Telephone [facility] Family & Internal Medicine [id number] [place] [address] Sanjeev Webster DO [facility] [place] [address] Pain Social History Tobacco Use Types Packs/Day Years [...] slept in a snf (including now)? No 04/03/2022 Comments No Sex [...] Progress Notes * Yenifer Ingram MA - 05/30/2022 2:31 PM CDT Spoke with patient and informed her of the recommendation. The patient states the gabapentin does not make her sleepy or overly tired. The patient requested I call Izzy to inform her. I called izzy and left a very detailed message and informed her to call the office with questions * Sanjeev Webster DO - 05/30/2022 2:12 PM CDT If she is not having issues with sedation with the gabapentin, she can take them together. * Yenifer Ingram MA - 05/30/2022 1:48 PM CDT Patient is taking gabapentin TID. She was informed by her provider not to take the hydrocodone and gabapentin together. She has only been using hydrocodone sparingly. Can she take both medications together? * Sanjeev Webster DO - 05/30/2022 12:59 PM CDT We refilled her hydrocodone and also have her on gabapentin for this; clarify if she's taking theseand how she is taking them. * Trixie Jose MA - 05/30/2022 10:11 AM CDT Patient states that she is still in a lot of pain from her shingles. I think she is confused about the directions of her medication. She states that she can not take them together and you would know. documented in this encounter Plan of Treatment Upcoming Encounters Date Type Department Care Team (Late st Contact Info) Description 04/14/2024 2:00 PM REHAB MANAGER Office Visit [facility] Multispecialty Care - [facility] 3 [facility], [address] [place] [phone] Julio Pulido MD 3 [place] [address] documented as of this encounter Goals Goal Patient Goal Type Associated Problems Recent Progress Patient-Stated? Author Health - patient able to perform ADLs independently General On track(2023 9:49 AM CDT) Dianne Corona, DALE Note: 12/17/23: Patient stated she is independent with ASL's. Establish Plan for Symptom Monitoring-CHF General On track(2023 11:36 AM REHAB MANAGER) Dianne Coorna, RN Note: Patient will recognize symptoms of [...] Symptom Monitoring-COPD General On track(2023 11:36 AM REHAB MANAGER) Dianne Corona, RN Note: Patient will [...] Symptom Monitoring-DM General On track(2023 4:33 PM REHAB MANAGER) Dianne Corona RN Note: Patient will [...] Symptom Monitoring-HTN General On track(2023 4:33 PM REHAB MANAGER) Dianne Corona, DALE Note: Patient will [...] as of this encounter Care Teams Industrial Electrician Journeyman Relationship Specialty Start Date End Date Sanjeev Webster DO [address] [place] [id number] PCP - General FAMILY PRACTICE 09/25/20 Dianne Johnson, RN [address] [place] [address] Grease Remover (Ambulatory) REGISTERED NURSE 08/14/20 documented as of this encounter
--- OUTSIDE RECORDS SUMMARY | 2024-03-15 01:00 | XMS_ITS | Encounter Summary ---
Author Organization [facility] Address [facility]6 [facility] [place] [address] [place] [address] Care Team Providers Care Music Education Adjunct Professor Name Role Phone Dianne Johnson RN Unavailable [phone] Sanjeev Webster DO Primary Care Provider + Reason for Visit * Reason Comments UTI 1 month follow up. T he patient states she is feeling fine and does not have urinary sx. Encounter Details Date Type Department Care Team (Late st Contact Info) Description 05/01/2022 1:00 PM PACKAGING LINE ATTENDANT Office Visit [facility] Family & Internal Medicine [address] [address] Sanjeev Webster DO [address] [place] [address] UTI (1 month follow up. The patient states she is feeling fine and does not have urinary sx. ) Social History Tobacco Use Types Packs/Day [...] Coronavirus/COVID-19? No / Unsure 05/01/2022 12:35 PM PACKAGING LINE ATTENDANT documented as of this encounter Last Filed Vital Signs Vital Sign Reading Time Taken Comments Blood Pressure 118/60 05/01/2022 1:47 PM PACKAGING LINE ATTENDANT Pulse 60 05/01/2022 1:13 PM PACKAGING LINE ATTENDANT Temperature 36.6 ??C (97.8 ??F) 05/01/2022 1:13 PM CS T Respiratory Rate 16 05/01/2022 1:13 PM PACKAGING LINE ATTENDANT Oxygen Saturation 95% 05/01/2022 1:13 PM PACKAGING LINE ATTENDANT Inhaled Oxygen Concentration - - Weight 78.3 kg (172 lb 9.6 oz) 05/01/2022 1:13 P M PACKAGING LINE ATTENDANT Height 165.1 cm (5' 5 ) 05/01/2022 1:13 PM PACKAGING LINE ATTENDANT Body Mass Index 28.72 05/01/2022 1:13 PM PACKAGING LINE ATTENDANT documented in this encounter Functional Status * [...] Progress Notes * Sanjeev Webster, DO - 05/01/2022 1:00 PM CST Images from the original note were not included. GENERAL OFFICE VISIT Encounter Date: 05/01/2022 Chief Complaint: 76-year-old female presents for UTI (1 month follow up. The patient states she is feeling fine and does not have urinary sx. ) HPI: Pt presents to discuss depressive symptoms. We decreased her venlafaxine at her last OV. Counterintuitively, her symptoms have worsened when we increased her medication. She is doing better today with this. We increased pt's furosemide to see if this helped with her breathing and edema. These are both improved; she has lost about 2 lbs since last OV. Pt had relayed a concern of dizziness, productive cough, and congestion. These resolved since last OV. Pt swa Dr. Moreno for her multiple endocrine issues, including hyperparathyroidism, hyperthyroidism,and osteoporosis. She is on Prolia. She is now on methimazole 10 mg. She was having trouble obtaining all of her labs for her hyperparathyroid, but we have obtained most of these. She is now off of Am iodarone per Dr. Ordoñez's office. Pt's PT/INR is 2.7 on 04/25/22. This is therapeutic Review of Systems Constitutional: Negative for fatigue and fever. Respiratory: Negative for shortness of breath. Cardiovascular: Negative for leg swelling. Endocrine: See HPI Psychiatric/Behavioral: See HPI Patient Active Problem List Diagnosis ??? Abnormal stress test ??? Chronic anticoagulation ??? Coronary artery disease involving nikolai coronary artery of nikolai heart without angina pectoris ??? Dyspnea on [...] (CMS/HCC) ??? H/O mechanical aortic valve replacement 2004 ??? Hypertension Past Surgical History: Procedure Laterality [...] 02/26/2012, 11/30/2013, 12/07/2014, 12/25/2016, 12/03/2017, 12/13/2018 ??? PFIZER COVID-19 (ESTEVES CAP), MRNA, LNP-S, PF, [...] 09/05/2020 ??? Tetanus/Diptheria 07/22/2014 ??? Zoster (Zostavax) 36220 Unt/0.65Ml 12/25/2015 Current Outpatient Medications Medication Sig [...] by mouth nightly. 30 tablet 0 ??? amiodarone (PACERONE) 100 MG tablet Take 100 mg by mouth daily. ??? Cholecalciferol (VITAMIN D3) 25 MCG (1000 [...] (0.25 mg total) by mouth nightly. ??? amiodarone (PACERONE) 100 MG tablet Take 100 mg by mouth daily. ??? Cholecalciferol (VITAMIN D3) 25 MCG (1000 UT) Cap Take 1,000 Units by mouth daily. ??? FEROSUL 325 (65 Fe) MG tablet Take 1 tablet by mouth once daily ??? furosemide (LASIX) 20 MG tablet Take 2 tablets (40 mg total) by mouth daily. ??? gabapentin (NEURONTIN) 300 MG capsule Take 1 capsule by mouth twice daily ??? HYDROcodone-acetaminophen (NORCO) 10-325 MG tablet Take 1 tablet by mouth every 6 (six) hours as needed for Pain. Indications: Chronic Pain Do not take with alprazolam. ??? lisinopril (PRINIVIL) 20 MG tablet Take [...] TABLET BY MOUTH NIGHTLY AT BEDTIME ??? venlafaxine XR (EFFEXOR-XR) 150 MG 24 hr capsule Take 1 capsule (150 mg total) by mouth daily. ??? warfarin (COUMADIN) 1 MG tablet Take [...] B Other (see comment) Objective: Filed Vitals: 05/01/22 1313 05/01/22 1347 BP: (!) 146/82 118/60 Pulse: 60 Resp: 16 Temp: 97.8 ??F (36.6 ??C) TempSrc: Skin SpO2: 95% Weight: 78.3 kg (172 lb 9.6 oz) Height: 5' 5 (1.651 m) Physical [...] no abdominal tenderness. Musculoskeletal: Right lower leg: No edema. Left lower leg: No edema. Neurological: Mental Status: She is alert. Assessment & Plan: Radha was seen today for uti. Diagnoses and all orders for this visit: Current mild episode of major depressive disorder without prior episode (CMS/HCC) Chronic diastolic heart failure (CMS/HCC) Secondary hyperparathyroidism (CMS/HCC) Hyperthyroidism Age-related osteoporosis without current pathological fracture Current use of anticoagulant therapy Discussion/Summary: Continue current venlafaxine as dosed. Continue current dose of furosemide. Strongly emphasized need to f/u with endocrine given her multiple chronic conditions; continue current chronic medications.Repeat PT/INR in 2 weeks and continue current dose of warfarin. Will have patient follow-up in 1 month. Patient verbalized understanding. Sanjeev Webster DO AGING LINE ATTENDANT documented in this encounter Plan of Treatment Upcoming Encounters Date Type Department Care Team (Late st Contact Info) Description 04/14/2024 2:00 PM PACKAGING LINE ATTENDANT Office Visit [facility] Multispecialty Care - [address], [address] [place] [address] Julio Pulido MD [address] [place] [address] documented as of this encounter Goals Goal Patient Goal Type Associated Problems Recent Progress Patient-Stated? Author Health - patient able to perform ADLs independently General On track(2023 9:49 AM CDT) Dianne Corona RN Note: 12/17/23: Patient stated she is independent with ASL's. Establish Plan for Symptom Monitoring-CHF General On track(2023 11:36 AM PACKAGING LINE ATTENDANT) Dianne Corona RN Note: Patient will [...] Symptom Monitoring-COPD General On track(2023 11:36 AM PACKAGING LINE ATTENDANT) Dianne Corona RN Note: Patient will [...] Symptom Monitoring-DM General On track(2023 4:33 PM PACKAGING LINE ATTENDANT) Dianne Corona RN Note: Patient will [...] Symptom Monitoring-HTN General On track(2023 4:33 PM PACKAGING LINE ATTENDANT) No Dianne Johnson, RN Note: Patient will monitor B/P several times per week , record readings and report to physician or CC if B/P consistently >130/80 Take your medications as prescribed. Follow up with your provider as scheduled. Take your blood pressure at least several times a week if able. documented as of this encounter Visit Diagnoses Diagnosis Current mild episode of major depressive disorder without prior episode (CMS/HCC)- Primary Chronic diastolic heart failure (CMS/HCC HHS/HCC) Chronic diastolic heart failure Secondary hyperparathyroidism (CMS/HCC HHS/HCC) Secondary hyperparathyroidism (of renal origin) Hyperthyroidism Thyrotoxicosis without mention of goiter or other cause, without mention of thyrotoxic crisis or storm Age-related osteoporosis without current pathological fracture Senile osteoporosis Current use of anticoagulant therapy documented in this encounter Additional Health Concerns Assessment Noted Time PHQ-9 Depression Total Score: 3 12/24/19 22 11:48 AM CDT documented as of this encounter Care Teams Music Education Adjunct Professor Relationship Specialty Start Date End Date Sanjeev Webster DO [address] [place] [address] PCP - General FAMILY PRACTICE 09/25/20 Dianne Johnson, RN [address] [place] [address] Carpentry Professional (Ambulatory) REGISTERED NURSE 08/14/20 documented as of this encounter
--- OUTSIDE RECORDS SUMMARY | 2024-03-15 01:00 | XMS_ITS | Encounter Summary ---
Author Organization [facility] Address [address] [place] [address] [place] [address] Care Team Providers Care Bioprocess Development Engineer Name Role Phone Dianne Johnson RN Unavailable [phone] Sanjeev Webster DO Primary Care Provider + Reason for Visit * Reason Comments Image (SCAN) Encounter Details Date Type Department Care Team (Latest Contact Info) Description 05/16/2022 Scan HEALTH INFO SRVCS Scanned, Doc Med [...] slept in a custodial (including now)? No 04/03/2022 Comments No Sex [...] st Contact Info) Description 04/14/2024 2:00 PM GAGE MAKER Office Visit [facility] Multispecialty Care - [facility] [address] [facility], [address] [place] [address] Julio Pulido MD 3 [place] [address] documented as of this encounter Goals Goal Patient Goal Type Associated Problems Recent Progress Patient-Stated? Author Health - patient able to perform ADLs independently General On track(2023 9:49 AM CDT) Dianne Corona RN Note: 12/17/23: Patient stated she is independent with ASL's. Establish Plan for Symptom Monitoring-CHF General On track(2023 11:36 AM GAGE MAKER) Dianne Corona RN Note: Patient will [...] Symptom Monitoring-COPD General On track(2023 11:36 AM GAGE MAKER) Dianne Corona RN Note: Patient will [...] Symptom Monitoring-DM General On track(2023 4:33 PM GAGE MAKER) Dianne Corona, RN Note: Patient will [...] Symptom Monitoring-HTN General On track(2023 4:33 PM GAGE MAKER) Dianne Corona, RN Note: Patient will [...] Priority Date/Time Associated Diagnosis Comments IMAGE GENERIC 05/16/2022 documented in this encounter Results * IMAGE GENERIC (05/16/2022) Anatomical Region Laterality Modality Other 05/16/2022 us Doc Med Group Scanned SCANNING Final Resu lt documented in this encounter Visit Diagnoses Not on filedocumented in this encounter Additional Health Concerns Assessment Noted Time PHQ-9 Depression Total Score: 3 12/24/19 22 11:48 AM CDT documented as of this encounter Care Teams Bioprocess Development Engineer Relationship Specialty Start Date End Date Sanjeev Webster DO [address] [place] [address] PCP - General FAMILY PRACTICE 09/25/20 Dianne Johnson, RN [address] [place] [address] Conciliator (Ambulatory) REGISTERED NURSE 08/14/20 documented as of this encounter
--- OUTSIDE RECORDS SUMMARY | 2024-03-15 01:00 | XMS_ITS | Encounter Summary ---
Author Organization [facility] Address [address] [place] [address] [place] [address] Care Team Providers Care Hospital Liaison Name Role Phone Casey Johnson RN Unavailable [phone] Sanjeev Webster DO Primary Care Provider + Reason for Visit * Reason Onset Date Comments Care Management 04/24/2022 Encounter Details Date Type Department Care Team (Late st Contact Info) Description 04/24/2022 Patient Outreach [facility] Family & Internal Medicine [address] [address] Casey Johnson, RN [address] [place] [address] Care Management Social History Tobacco [...] Coronavirus/COVID-19? No / Unsure 04/17/2022 10:28 AM MOLDER MACHINE TENDER documented as of this encounter Functional Status [...] Progress Notes * Casey Johnson RN - 04/24/2022 2:11 PM CST Chronic Care Management: Patient Status: Contacted patient today to follow up on lab work wanted done this week. Patient statedshe hasn't been to [facility] to have it done yet. Stated since yesterday she has nasal congestion, non productive cough, felt a little dizzy, and she stated she didn't check her temperature yesterday but thinks she had a fever. Offered patient an appointment today or tomorrow to be evaluated if anappointment is available. Patient declines being seem today. Stated she will be seen tomorrow if has an opening. Educated patient on s/s of COPD exacerbations and CHF exacerbation. Patient denies worsening sob, increased swelling in feet, legs or stomach and stated appetite is fine. She is drinking 4 or more bottles of water a day, plus coffee and lemonade. 04/24: Contacted 's office and spoke to Scarlett. PCP does not have an opening tomorrow. Stated she will send a message to and get his recommendations. She will send CC a messageback. 04/24: Received message from Scarlett and recommends patient be seen at ER. 04/24: Contacted patient to let her know recommends going to ER. Patient declines. Stating she is not going to the ER. She will get lab work done at [facility] tomorrow and call office after she gets it done. Stated I just have the sniffles and I'm not going to ER. Plan of Care: distribution coordinator will continue to follow up by [...] any medications without discussing with your provider. 04/24/22: See note for details. ??? Establish Plan for Symptom Monitoring-COPD On [...] any of your medications without notifying provider 04/24/22: See note for details. Upcoming Visit Appointments: Future Appointments Date Time Provider Department Center 05/01/2022 1:00 PM Sanjeev Webster, MGFMMRVL [facility] 05/02/2022 11:00 AM Panda Moreno MD [facility] Quality care gaps: Health Maintenance Topic Date Due ??? Kidney Health Evaluation Never done ??? Medicare Wellness Visit Never done ??? Diabetes: Retinopathy Eye Exam 05/01/2022 (Originally 1963) ??? Zoster Vaccines (2 of 3) 03/31/2023 (Originally 02/19/2016) ??? COVID-19 Vaccine (5 - Booster for Pfizer series) 03/31/2023 (Originally 10/24/2021) ??? Hemoglobin A1C 07/13/2022 ??? Lipid Panel 08/29/2022 ??? DTaP, Tdap and Td Vaccines (4 - Td or Tdap) 09/05/2030 ??? DEXA SCAN (GENERAL) Completed ??? Influenza Adult Completed ??? Pneumococcal Vaccine: 65+ Years Completed ??? Hepatitis C Completed ??? Meningococcal Vaccine Aged Out Problem List: Patient Active Problem List Diagnosis ??? Abnormal stress test ??? Chronic anticoagulation ??? Coronary artery disease involving [place] coronary artery of [place] heart without angina pectoris ??? Dyspnea [...] associated with type 2 diabetes mellitus (CMS/HCC) Medications: Current Outpatient Medications Medication Sig [...] with Patient Time spent with patient (minutes): 33 (Comment: Time spent with patient and Scarlett at '[facility]) Time spent performing chart review (minutes): 7 Total time (minutes): 40 CASEY JOHNSON RN I reviewed the patient's status and education provided by CASEY JOHNSON RN. I agree with the findings and recommendations made. Cosigned by Sanjeev Webster DO at 04/24/2022 4:26 PM MOLDER MACHINE TENDER ER MACHINE TENDER ER MACHINE TENDER documented in this encounter Plan of Treatment Upcoming Encounters Date Type Department Care Team (Late st Contact Info) Description 04/14/2024 2:00 PM MOLDER MACHINE TENDER Office Visit [facility] Multispecialty Care - [facility] [address], [address] [place] [address] Julio Pulido MD 3 [place] [address] documented as of this encounter Goals Goal Patient Goal Type Associated Problems Recent Progress Patient-Stated? Author Health - patient able to perform ADLs independently General On track(2023 9:49 AM CDT) Casey Corona RN Note: 12/17/23: Patient stated she is independent with ASL's. Establish Plan for Symptom Monitoring-CHF General On track(2023 11:36 AM MOLDER MACHINE TENDER) Casey Corona RN Note: Patient will [...] Symptom Monitoring-COPD General On track(2023 11:36 AM MOLDER MACHINE TENDER) Casey Corona RN Note: Patient will [...] Symptom Monitoring-DM General On track(2023 4:33 PM MOLDER MACHINE TENDER) Casey Corona RN Note: Patient will [...] Symptom Monitoring-HTN General On track(2023 4:33 PM MOLDER MACHINE TENDER) Casey Corona, RN Note: Patient will monitor B/P several times per week , record readings and report to physician or CC if B/P consistently >130/80 Take your medications as prescribed. Follow up with your provider as scheduled. Take your blood pressure at least several times a week if able. documented as of this encounter Visit Diagnoses Diagnosis Chronic diastolic heart failure ([facility])- Primary Chronic diastolic heart failure COPD (chronic obstructive pulmonary disease) ([facility]) Chronic airway obstruction, not elsewhere classified documented in this encounter Additional Health Concerns Assessment Noted Time PHQ-9 Depression Total Score: 3 12/24/19 22 11:48 AM CDT documented as of this encounter Care Teams Hospital Liaison Relationship Specialty Start Date End Date Sanjeev Webster DO [address] [place] [id number] PCP - General FAMILY PRACTICE 09/25/20 Casey Johnson, RN [address] [place] [address] Irrigation District Manager (Ambulatory) REGISTERED NURSE 08/14/20 documented as of this encounter
--- OUTSIDE RECORDS SUMMARY | 2024-03-15 01:00 | XMS_ITS | Encounter Summary ---
Author Organization [facility] Address [facility] [facility] [place] [address] [place] [address] Care Team Providers Care Railroad Carman Name Role Phone Dianne Johnson RN Unavailable [phone] Sanjeev Webster DO Primary Care Provider + Reason for Visit * Reason Onset Date Comments Refill Request 05/12/2022 Encounter Details Date Type Department Care Team (Late st Contact Info) Description 05/12/2022 Telephone [facility] Family & Internal Medicine [id number] [place] [address] Sanjeev Webster DO [address] [place] [address] Refill Request Social History Tobacco [...] slept in a penitentiary (including now)? No 04/03/2022 Comments No Sex [...] Coronavirus/COVID-19? No / Unsure 05/01/2022 12:35 PM MOTOR EQUIPMENT SERGEANT documented as of this encounter Functional Status [...] Progress Notes * Yenifer Wolf MA - 05/12/2022 4:31 PM CSTAddended by: YENIFER WOLF on: 05/12/2022 04:31 PM Modules accepted: Orders R EQUIPMENT SERGEANT * Yenifer Wolf MA - 05/12/2022 4:31 PM CST Medication sent R EQUIPMENT SERGEANT * Dianne Johnson RN - 05/12/2022 4:02 PM CST Izzy called requesting a refill for Furosemide patient takes 40 mg daily. She plans on filling patient's pill discharge planner on Thursday and will need Furosemide by that time. Please send refill to [facility] - [facility]. R EQUIPMENT SERGEANT documented in this encounter Plan of Treatment Upcoming Encounters Date Type Department Care Team (Late st Contact Info) Description 04/14/2024 2:00 PM MOTOR EQUIPMENT SERGEANT Office Visit [facility] Multispecialty Care - [facility] [address] [place] [phone] Julio Pulido MD 3 [place] [address] documented as of this encounter Goals Goal Patient Goal Type Associated Problems Recent Progress Patient-Stated? Author Health - patient able to perform ADLs independently General On track(2023 9:49 AM CDT) Dianne Corona RN Note: 12/17/23: Patient stated she is independent with ASL's. Establish Plan for Symptom Monitoring-CHF General On track(2023 11:36 AM MOTOR EQUIPMENT SERGEANT) Dianne Corona RN Note: Patient will recognize [...] Monitoring-COPD General On track(2023 11:36 AM MOTOR EQUIPMENT SERGEANT) Dianne Corona RN Note: Patient will recognize [...] Monitoring-DM General On track(2023 4:33 PM MOTOR EQUIPMENT SERGEANT) Dianne Corona RN Note: Patient will manage [...] Monitoring-HTN General On track(2023 4:33 PM MOTOR EQUIPMENT SERGEANT) Dianne Corona RN Note: Patient will monitor B/P several times per week , record readings and report to physician or CC if B/P consistently >130/80 Take your medications as prescribed. Follow up with your provider as scheduled. Take your blood pressure at least several times a week if able. documented as of this encounter Visit Diagnoses Diagnosis Coronary artery disease involving [place] coronary artery of [place] heart without angina pectoris Chronic diastolic heart failure ([facility]) Chronic diastolic heart failure documented in this encounter Additional Health Concerns Assessment Noted Time PHQ-9 Depression Total Score: 3 12/24/19 22 11:48 AM CDT documented as of this encounter Care Teams Railroad Carman Relationship Specialty Start Date End Date Sanjeev Webster DO [address] [place] [address] [id number] PCP - General FAMILY PRACTICE 09/25/20 Dianne Johnson, RN [address] [place] [address] Salvage Clerk (Ambulatory) REGISTERED NURSE 08/14/20 documented as of this encounter
--- OUTSIDE RECORDS SUMMARY | 2024-03-15 01:00 | XMS_ITS | Encounter Summary ---
Author Organization [facility] Address [facility] [facility] [place] [address] [place] [address] Care Team Providers Care Sample Builder Name Role Phone Dianne Johnson RN Unavailable [phone] Sanjeev Webster DO Primary Care Provider + Reason for Visit * Reason Onset Date Comments Follow Up Call 05/01/2022 Encounter Details Date Type Department Care Team (Late st Contact Info) Description 05/01/[address] [facility] Family & Internal Medicine [address] [place] [address] Sanjeev Webster DO [address] [place] [address] Follow Up Call Social History [...] Coronavirus/COVID-19? No / Unsure 04/17/2022 10:28 AM PRODUCTION TEAM LEADER documented as of this encounter Functional Status [...] Progress Notes * Dianne Johnson RN - 05/01/2022 10:27 AM CST Contacted patient this morning to remind her of upcoming appointment with today at 1:00 PM and appointment with Endocrinology tomorrow in [place] at 11:00 am. Patient verbalizes understanding. UCTION TEAM LEADER documented in this encounter Plan of Treatment Upcoming Encounters Date Type Department Care Team (Late st Contact Info) Description 04/14/2024 2:00 PM PRODUCTION TEAM LEADER Office Visit [facility] Multispecialty Care - [facility] [address] [facility], [address] [place] [phone] Julio Pulido MD 3 [place] [address] documented as of this encounter Goals Goal Patient Goal Type Associated Problems Recent Progress Patient-Stated? Author Health - patient able to perform ADLs independently General On track(2023 9:49 AM CDT) No Dianne Johnson RN Note: 12/17/23: Patient stated she is independent with ASL's. Establish Plan for Symptom Monitoring-CHF General On track(2023 11:36 AM PRODUCTION TEAM LEADER) Dianne Corona RN Note: Patient will recognize [...] Monitoring-COPD General On track(2023 11:36 AM PRODUCTION TEAM LEADER) Dianne Corona RN Note: Patient will recognize [...] Monitoring-DM General On track(2023 4:33 PM PRODUCTION TEAM LEADER) Dianne Corona RN Note: Patient will manage [...] Monitoring-HTN General On track(2023 4:33 PM PRODUCTION TEAM LEADER) Dianne Corona RN Note: Patient will monitor [...] as of this encounter Care Teams Sample Builder Relationship Specialty Start Date End Date Sanjeev Webster DO [address] [place] [address] [phone] PCP - General FAMILY PRACTICE 09/25/20 Dianne Johnson, RN [address] [place] [address] Floor Nurse (Ambulatory) REGISTERED NURSE 08/14/20 documented as of this encounter
--- OUTSIDE RECORDS SUMMARY | 2024-03-15 01:00 | XMS_ITS | Encounter Summary ---
Author Organization [facility] Address [facility] [facility] [place] [address] [place] [address] Care Team Providers Care Harbor Police Launch Commander Name Role Phone Dianne Johnson RN Unavailable [phone] Sanjeev Webster DO Primary Care Provider + Reason for Visit * Reason Onset Date Comments Other 04/25/2022 Encounter Details Date Type Department Care Team (Late st Contact Info) Description 04/25/2022 Telephone [facility] Family & Internal Medicine [address] [place] [address] Sanjeev Webster DO [facility] [place] [address] Other Social History Tobacco Use [...] slept in a alf (including now)? No 04/03/2022 Comments No Sex [...] Coronavirus/COVID-19? No / Unsure 04/17/2022 10:28 AM OPTOMETRY DOCTOR documented as of this encounter Functional [...] Progress Notes * Yenifer Ingram MA - 04/25/2022 4:10 PM CST Record request sent. METRY DOCTOR * Sanjeev Webster DO - 04/25/2022 4:04 PM CST She typically goes to [place]; this is probably where she went instead. METRY DOCTOR * Yenifer Ingram MA - 04/25/2022 4:03 PM CST FYI. I do not see results in the chart as of yet. METRY DOCTOR * Lashawn Vega - 04/25/2022 11:57 AM CST She had her INR done at [facility]. METRY DOCTOR documented in this encounter Plan of Treatment Upcoming Encounters Date Type Department Care Team (Late st Contact Info) Description 04/14/2024 2:00 PM OPTOMETRY DOCTOR Office Visit [facility] Multispecialty Care - [facility] [address] [facility], [address] [place] [phone] Julio Pulido MD 3 [place] [address] documented as of this encounter Goals Goal Patient Goal Type Associated Problems Recent Progress Patient-Stated? Author Health - patient able to perform ADLs independently General On track(2023 9:49 AM CDT) Dianne Corona RN Note: 12/17/23: Patient stated she is independent with ASL's. Establish Plan for Symptom Monitoring-CHF General On track(2023 11:36 AM OPTOMETRY DOCTOR) Dianne Corona RN Note: Patient will [...] Symptom Monitoring-COPD General On track(2023 11:36 AM OPTOMETRY DOCTOR) Dianne Corona RN Note: Patient will [...] Symptom Monitoring-DM General On track(2023 4:33 PM OPTOMETRY DOCTOR) Dianne Corona RN Note: Patient will [...] Symptom Monitoring-HTN General On track(2023 4:33 PM OPTOMETRY DOCTOR) No Dianne Johnson, RN Note: Patient will [...] documented as of this encounter Care Teams Harbor Police Launch Commander Relationship Specialty Start Date End Date Sanjeev Webster DO [address] [place] [address] [phone] PCP - General FAMILY PRACTICE 09/25/20 Dianne Johnson, RN [address] [place] [address] Phlebotomy Program Coordinator (Ambulatory) REGISTERED NURSE 08/14/20 documented as of this encounter
--- OUTSIDE RECORDS SUMMARY | 2024-03-15 01:00 | XMS_ITS | Encounter Summary ---
Author Organization [facility] Address [facility] [place] [address] [place] [address] Care Team Providers Care Packer Inspector Name Role Phone Dianne Johnson RN Unavailable [phone] Sanjeev Webster DO Primary Care Provider + Reason for Visit * Reason Onset Date Comments Medication 04/18/2022 Encounter Details Date Type Department Care Team (Late st Contact Info) Description 04/18/2022 Telephone [facility] Family & Internal Medicine [address] [place] [address] Sanjeev Webster DO [facility] [place] [address] Medication Social History Tobacco Use [...] Coronavirus/COVID-19? No / Unsure 04/17/2022 10:28 AM FITTER HAND documented as of this encounter Functional Status [...] Progress Notes * Sanjeev Webster DO - 04/18/2022 3:29 PM CST Yes, she should do so. ER HAND * Silvina Dial RN - 04/18/2022 3:15 PM CST CC received call from daughter in law Magana, who was asking if patient should start taking her potassium again? She is giving patient lasix and plans to have bmp recheck next week. Thank you. ER HAND documented in this encounter Plan of Treatment Upcoming Encounters Date Type Department Care Team (Late st Contact Info) Description 04/14/2024 2:00 PM FITTER HAND Office Visit [facility] Multispecialty Care - [facility] [address] [facility], [address] [place] [address] Julio Pulido MD 3 [place] [address] documented as of this encounter Goals Goal Patient Goal Type Associated Problems Recent Progress Patient-Stated? Author Health - patient able to perform ADLs independently General On track(2023 9:49 AM CDT) Dianne Corona, RN Note: 12/17/23: Patient stated she is independent with ASL's. Establish Plan for Symptom Monitoring-CHF General On track(2023 11:36 AM FITTER HAND) Dianne Corona RN Note: Patient will recognize [...] Symptom Monitoring-COPD General On track(2023 11:36 AM FITTER HAND) Dianne Corona RN Note: Patient will recognize [...] Symptom Monitoring-DM General On track(2023 4:33 PM FITTER HAND) Dianne Corona RN Note: Patient will manage [...] Symptom Monitoring-HTN General On track(2023 4:33 PM FITTER HAND) Dianne Corona R, RN Note: Patient will monitor B/P [...] documented as of this encounter Care Teams Packer Inspector Relationship Specialty Start Date End Date Sanjeev Webster DO [address] [place] [address] [phone] PCP - General FAMILY PRACTICE 09/25/20 Dianne Johnson, RN [address] [place] [address] Freight Brake Operator (Ambulatory) REGISTERED NURSE 08/14/20 documented as of this encounter
--- OUTSIDE RECORDS SUMMARY | 2024-03-15 01:00 | XMS_ITS | Encounter Summary ---
Author Organization [facility] Address [address] [facility] [place] [address] [place] [address] Care Team Providers Care Avionics Repair Technician Name Role Phone Casey Johnson RN Unavailable [phone] Sanjeev Webster DO Primary Care Provider + Reason for Visit * Reason Onset Date Comments Care Management 05/08/2022 Encounter Details Date Type Department Care Team (Late st Contact Info) Description 05/08/[address] [facility] Family & Internal Medicine [address] [address] Casey Johnson, RN [address] [place] [address] Care Management Social History Tobacco [...] slept in a chcf (including now)? No 04/03/2022 Comments No Sex [...] Coronavirus/COVID-19? No / Unsure 05/01/2022 12:35 PM AGRICULTURAL EXTENSION AGENT documented as of this encounter Functional Status [...] Progress Notes * Casey Johnson RN - 05/08/2022 9:11 AM CST Chronic Care Management: Patient concerns or urgent matters that need addressed: Patient stated she tried to make her appointment with on 05/02/22 but she couldn't find hisoffice. Stated she went to multiple offices and couldn't find his office. Stated he couldn't see her that day since she was late for her appointment. The appointment was rescheduled for 09/12/22. Stated her friend has taken her in the past but unable to take her right now since she has some eye issues. Patient stated her friend might be able to take her on 09/12/22. Informed patient she has [employer] insurance and she has 12 free round trips per year to office visits if she prefers to set up a ride. Patient declines setting up a ride at this time. Informed patient that CC will reach out to 's office requesting directions be mailed to her. Patient stated that would be great. She informed CC that 's office will contact her if he has a CX. 05/08/22: Contacted 's office and spoke to Dipti. Stated she answers calls for office but doesn't work in the office. Stated she will send patient directions to the office from patient's house and she will ask 's office to send her directions as well. Thanked Dipti and ended call. Patient Status: Contacted patient today. She is a very pleasant 76 year old. Reports since Venlafaxine has been decreased she feels a lot better. She is not checking her weight every morning. Stated she weighs in on Thursday's and didn't go yesterday due to stomach ache. Denies any issues with swelling at this time, worsening sob and stated cough is better. Stated the last time she spoke to CC she was using her albuterol inhaler several times. Stated now she hasn't needed to use it. Educated patient on COPD exacerbation and CHF exacerbation s/s. Encouraged to contact CC at the onset of any changes. Patient is due for Protime around 05/15/22. Patient stated she is supposed to see her sister in [facility] next week weather permitting. Stated she can come into 's office next week and get Protime done prior to leaving. Informed patient that will send a message to 's office to contact her with an appointment. Patient verbalizes understanding. A1C on 01/13/22: 6.2 %. Patient is currently not on any medications for diabetes at this time and not checking BG. Denies any issues at present. Encouraged to call with any changes. Patient verbalizesunderstanding. Plan of Care: patient financial services coordinator will continue to follow up [...] any medications without discussing with your provider. 05/08/22: See note for details. 04/24/22: See note for details. ??? Establish [...] notifying provider 04/24/22: See note for details. ??? Establish Plan for Symptom Monitoring-DM On track Patient will manage her diabetes and report any symptoms of hypo/hyperglycemia to her provider. 1. Patient to follow diabetic medication regimen. 2. Patient will maintain a carb consistent diet and avoid concentrated sweets. 3. Patient will monitor blood sugar readings at least twice a day and call provider with consistentreadings <80 and >200. 4. If symptoms of excessive hunger, blurred vision, shakiness, light headedness, anxiety present, check blood sugar if able or treat the hypoglycemia. 5. If glucose is less than 70, take 15 grams of glucose that is half a cup of juice or milk or regular soda or 3 glucose tablets and recheck in 15 minutes. Patient will follow up with her provider as scheduled. 04/16/22: A1C on 01/13/22: 6.2 ??? Establish Plan for Symptom Monitoring-HTN On track Patient will monitor B/P several times per week , record readings and report to physician or CC if B/P consistently >130/80 Take your medications as prescribed. Follow up with your provider as scheduled. Take your blood pressure at least several times a week if able. 05/08/22: Patient taking medications as prescribed. [id number] fills pill development planner. She is not checking her B/P at home. She gets B/P checked at appointments. 04/16/22: Patient is not checking B/P at this time. Encouraged to check several times per week if able. Seen on 04/11/22. B/P stable at 120/64. ??? Health - patient able to perform ADLs independently On track 05/08: Independent with ADL's. Upcoming Visit Appointments: Future Appointments Date Time Provider Department Center 06/03/2022 9:20 AM DO CHINYERE Santamaria 09/12/2022 11:00 AM Panda Moreno MD [facility] Quality care gaps: Health Maintenance Topic Date Due ??? Kidney Health Evaluation Never done ??? Medicare Wellness Visit Never done ??? Zoster Vaccines (2 of 3) 03/31/2023 (Originally 02/19/2016) ??? COVID-19 Vaccine (5 - Booster for Pfizer series) 03/31/2023 (Originally 10/24/2021) ??? Hemoglobin A1C 07/13/2022 ??? Lipid Panel 08/29/2022 ??? Diabetes: Retinopathy [...] Chronic anticoagulation ??? Coronary artery disease involving [place] coronary artery of [place] heart without angina pectoris ??? Dyspnea on [...] 19 (Comment: Time spent with patient and 's office.) Time spent performing chart review (minutes): 7 Total time (minutes): 26 CASEY JOHNSON RN I reviewed the patient's status and education provided by CASEY JOHNSON RN. I agree with the findings and recommendations made. Cosigned by Sanjeev Webster DO at 05/08/2022 9:08 PM AGRICULTURAL EXTENSION AGENT CULTURAL EXTENSION AGENT CULTURAL EXTENSION AGENT documented in this encounter Plan of Treatment Upcoming Encounters Date Type Department Care Team (Late st Contact Info) Description 04/14/2024 2:00 PM AGRICULTURAL EXTENSION AGENT Office Visit [facility] Mult[facility]pecialty Care - [facility] [address] [facility], [address] [place] [address] Julio Pulido MD 3 [place] [address] documented as of this encounter Goals Goal Patient Goal Type Associated Problems Recent Progress Patient-Stated? Author Health - patient able to perform ADLs independently General On track(2023 9:49 AM CDT) Casey Corona RN Note: 12/17/23: Patient stated she is independent with ASL's. Establish Plan for Symptom Monitoring-CHF General On track(2023 11:36 AM AGRICULTURAL EXTENSION AGENT) Casey Corona RN Note: Patient will recognize [...] Symptom Monitoring-COPD General On track(2023 11:36 AM AGRICULTURAL EXTENSION AGENT) Casey Corona RN Note: Patient will recognize [...] Symptom Monitoring-DM General On track(2023 4:33 PM AGRICULTURAL EXTENSION AGENT) Casey oCrona RN Note: Patient will manage her [...] Symptom Monitoring-HTN General On track(2023 4:33 PM AGRICULTURAL EXTENSION AGENT) Casey Corona RN Note: Patient will monitor B/P several times per week , record readings and report to physician or CC if B/P consistently >130/80 Take your medications as prescribed. Follow up with your provider as scheduled. Take your blood pressure at least several times a week if able. documented as of this encounter Visit Diagnoses Diagnosis Chronic diastolic heart failure ([facility])- Primary Chronic diastolic heart failure Type 2 diabetes mellitus ([facility]) Type II or unspecified type diabetes mellitus without mention of complication, not stated as uncontrolled COPD (chronic obstructive pulmonary disease) ([facility]) Chronic airway obstruction, not elsewhere classified Hypertension associated with type 2 diabetes mellitus ([facility]) documented in this encounter Additional Health Concerns Assessment Noted Time PHQ-9 Depression Total Score: 3 12/24/19 22 11:48 AM CDT documented as of this encounter Care Teams Avionics Repair Technician Relationship Specialty Start Date End Date Sanjeev Webster DO [address] [place] [address] PCP - General FAMILY PRACTICE 09/25/20 [place] [address] [place] [address] Card Services Specialist (Ambulatory) REGISTERED NURSE 08/14/20 documented as of this encounter
--- OUTSIDE RECORDS SUMMARY | 2024-03-15 01:00 | XMS_ITS | Encounter Summary ---
Author Organization [facility] [place] [facility] Address [address] [place] [address] [place] [address] Care Team Providers Care Spiritual Care Coordinator Name Role Phone Dianne Johnson RN Unavailable [phone] Sanjeev Webster DO Primary Care Provider + Encounter Details Date Type Department Care Team (Latest Contact Info) Description 04/17/2022 Travel Social History Tobacco Use Types Packs/Day [...] Coronavirus/COVID-19? No / Unsure 04/17/2022 10:28 AM PRINTING SUPPLIES SALES REPRESENTATIVE documented as of this encounter Functional Status [...] st Contact Info) Description 04/14/2024 2:00 PM PRINTING SUPPLIES SALES REPRESENTATIVE Office Visit [facility] Mult[facility]pecialty Care - [facility] [address] [facility], [address] [place] [address] Julio Pulido MD 3 [place] [address] documented as of this encounter Goals Goal Patient Goal Type Associated Problems Recent Progress Patient-Stated? Author Health - patient able to perform ADLs independently General On track(2023 9:49 AM CDT) Dianne Cornoa RN Note: 12/17/23: Patient stated she is independent with ASL's. Establish Plan for Symptom Monitoring-CHF General On track(2023 11:36 AM PRINTING SUPPLIES SALES REPRESENTATIVE) Dianne Corona, RN Note: Patient will recognize [...] Symptom Monitoring-COPD General On track(2023 11:36 AM PRINTING SUPPLIES SALES REPRESENTATIVE) Dianne Corona, RN Note: Patient will recognize [...] Symptom Monitoring-DM General On track(2023 4:33 PM PRINTING SUPPLIES SALES REPRESENTATIVE) Dianne Corona RN Note: Patient will manage [...] Symptom Monitoring-HTN General On track(2023 4:33 PM PRINTING SUPPLIES SALES REPRESENTATIVE) Dianne Corona, RN Note: Patient will monitor [...] documented as of this encounter Care Teams Spiritual Care Coordinator Relationship Specialty Start Date End Date Sanjeev Webster DO [address] [place] [address] PCP - General FAMILY PRACTICE 09/25/20 Dianne Johnson RN [address] [place] [address] Pet Care Assistant (Ambulatory) REGISTERED NURSE 08/14/20 documented as of this encounter
--- OUTSIDE RECORDS SUMMARY | 2024-03-15 01:00 | XMS_ITS | Encounter Summary ---
Author Organization [facility] Address [address] [facility] [place] [address] [place] [address] Care Team Providers Care Distribution Operations Supervisor Name Role Phone Dianne Johnson RN Unavailable [phone] Sanjeev Webster DO Primary Care Provider + Encounter Details Date Type Department Care Team (Latest Contact Info) Description 05/01/2022 Travel Social History Tobacco Use Types Packs/Day [...] slept in a fci (including now)? No 04/03/2022 Comments No Sex [...] Coronavirus/COVID-19? No / Unsure 05/01/2022 12:35 PM REHAB DIRECTOR documented as of this encounter Functional Status [...] Contact Info) Description 04/14/2024 2:00 PM REHAB DIRECTOR Office Visit [facility] Multispecialty Care - [facility] [address] [facility], [address] [place] [address] Julio Pulido MD 3 [place] [address] documented as of this encounter Goals Goal Patient Goal Type Associated Problems Recent Progress Patient-Stated? Author Health - patient able to perform ADLs independently General On track(2023 9:49 AM CDT) Dianne Corona, RN Note: 12/17/23: Patient stated she is independent with ASL's. Establish Plan for Symptom Monitoring-CHF General On track(2023 11:36 AM REHAB DIRECTOR) Dianne Corona, RN Note: Patient will recognize [...] Monitoring-COPD General On track(2023 11:36 AM REHAB DIRECTOR) Dianne Corona, RN Note: Patient will recognize [...] Monitoring-DM General On track(2023 4:33 PM REHAB DIRECTOR) Dianne Corona, RN Note: Patient will manage [...] Monitoring-HTN General On track(2023 4:33 PM REHAB DIRECTOR) Dianne Corona, RN Note: Patient will [...] documented as of this encounter Care Teams Distribution Operations Supervisor Relationship Specialty Start Date End Date Sanjeev Webster DO [address] [place] [address] PCP - General FAMILY PRACTICE 09/25/20 Dianne Johnson, RN [address] [place] [address] Lab Intern (Ambulatory) REGISTERED NURSE 08/14/20 documented as of this encounter
--- OUTSIDE RECORDS SUMMARY | 2024-03-15 01:00 | XMS_ITS | Encounter Summary ---
Author Organization [facility] Address [facility] [facility] [place] [address] [place] [address] Care Team Providers Care Log Manager Name Role Phone Dianne Johnson RN Unavailable [phone] Sanjeev Webster DO Primary Care Provider + Reason for Visit * Reason Onset Date Comments Medication 06/03/2022 Encounter Details Date Type Department Care Team (Late st Contact Info) Description 06/03/2022 Telephone [facility] Family & Internal Medicine [address] [id number] [place] [address] Sanjeev Webster DO [facility] [place] [address] Medication Social History Tobacco Use [...] Progress Notes * Trixie Jose MA - 06/03/2022 2:54 PM CDT Izzy informed of both rx's and rx sent tn * Sanjeev Webster DO - 06/03/2022 12:54 PM CDT This needs to be increased to 80 mg daily. We can send out a new script if this is needed. Also please let her know we added a medicine for urinary incontinence, oxybutynin. * Natalee Brown RN - 06/03/2022 11:40 AM CDT Called and spoke with Kim the patient's daughter in law. She stated that the patient is currently taking furosemide 40 mg at night. Patient told her they make her urinate too much during the day. LL-06/03/22 * Sanjeev Webster DO - 06/03/2022 9:50 AM CDT Can we clarify with pt's family what her current dose of furosemide is? We will need to increase this as she is retaining fluid. documented in this encounter Plan of Treatment Upcoming Encounters Date Type Department Care Team (Late st Contact Info) Description 04/14/2024 2:00 PM FIELD NATURALIST Office Visit [facility] Multispecialty Care - [facility] [address] [facility], [address] [place] [address] Julio Pulido MD 3 [place] [address] documented as of this encounter Goals Goal Patient Goal Type Associated Problems Recent Progress Patient-Stated? Author Health - patient able to perform ADLs independently General On track(2023 9:49 AM CDT) Dianne Corona RN Note: 12/17/23: Patient stated she is independent with ASL's. Establish Plan for Symptom Monitoring-CHF General On track(2023 11:36 AM FIELD NATURALIST) Dianne Corona RN Note: Patient will recognize [...] Symptom Monitoring-COPD General On track(2023 11:36 AM FIELD NATURALIST) Dianne Corona RN Note: Patient will recognize [...] Symptom Monitoring-DM General On track(2023 4:33 PM FIELD NATURALIST) Dianne Corona RN Note: Patient will manage [...] Symptom Monitoring-HTN General On track(2023 4:33 PM FIELD NATURALIST) Dianne Corona RN Note: Patient will monitor [...] heart failure with preserved ejection fraction (HFpEF) ([facility])- Primary documented in this encounter Additional Health Concerns Assessment Noted Time PHQ-9 Depression Total Score: 3 12/24/19 22 11:48 AM CDT documented as of this encounter Care Teams Log Manager Relationship Specialty Start Date End Date Sanjeev Webster DO [address] [place] [address] PCP - General FAMILY PRACTICE 09/25/20 Dianne Johnson, RN [address] [place] [address] Rehabilitation Services Manager (Ambulatory) REGISTERED NURSE 08/14/20 documented as of this encounter
--- OUTSIDE RECORDS SUMMARY | 2024-03-15 01:00 | XMS_ITS | Encounter Summary ---
Author Organization [facility] Address [facility] [facility] [place] [address] [place] [address] Care Team Providers Care Potato Chip Cooker Machine Name Role Phone Dianne Johnson RN Unavailable [phone] Sanjeev Webster DO Primary Care Provider + Encounter Details Date Type Department Care Team (Late st Contact Info) Description 05/19/2022 Care Management [facility] Family & Internal Medicine [address] [address] Bebe Dan, COUNTERINTELLIGENCE SPECIALIST [address] [place] [address] Social History Tobacco Use Types [...] Coronavirus/COVID-19? No / Unsure 05/01/2022 12:35 PM GRAIN ELEVATOR OPERATOR documented as of this encounter Functional Status [...] st Contact Info) Description 04/14/2024 2:00 PM GRAIN ELEVATOR OPERATOR Office Visit [facility] Multispecialty Care - [facility] [address] [facility], [address] [place] [address] Julio Pulido MD 3 [place] [address] documented as of this encounter Goals Goal Patient Goal Type Associated Problems Recent Progress Patient-Stated? Author Health - patient able to perform ADLs independently General On track(2023 9:49 AM CDT) No Dianne Johnson, RN Note: 12/17/23: Patient stated she is independent with ASL's. Establish Plan for Symptom Monitoring-CHF General On track(2023 11:36 AM GRAIN ELEVATOR OPERATOR) Dianne oCrona, RN Note: Patient will recognize symptoms of [...] Symptom Monitoring-COPD General On track(2023 11:36 AM GRAIN ELEVATOR OPERATOR) Dianne Corona, RN Note: Patient will [...] Symptom Monitoring-DM General On track(2023 4:33 PM GRAIN ELEVATOR OPERATOR) Dianne Corona, RN Note: Patient will [...] Symptom Monitoring-HTN General On track(2023 4:33 PM GRAIN ELEVATOR OPERATOR) Dianne Corona, RN Note: Patient will [...] documented as of this encounter Care Teams Potato Chip Cooker Machine Relationship Specialty Start Date End Date Sanjeev Webster DO [address] [place] [address] PCP - General FAMILY PRACTICE 09/25/20 Dianne Johnson, RN [address] [place] [address] Brickmason Supervisor (Ambulatory) REGISTERED NURSE 08/14/20 documented as of this encounter
--- OUTSIDE RECORDS SUMMARY | 2024-03-15 01:00 | XMS_ITS | Encounter Summary ---
Author Organization [facility] Address [facility] [place] [address] [place] [address] Care Team Providers Care Sas Sql Developer Name Role Phone Dianne Johnson RN Unavailable [phone] Sanjeev Webster DO Primary Care Provider + Reason for Visit * Reason Comments Back Pain Pt. was seen at ER for back ,chest and axillary area painful and burning X 1 week Encounter Details Date Type Department Care Team (Late st Contact Info) Description 05/20/2022 1:00 PM CDT Office Visit [facility] Family & Internal Medicine [address] [address] Sanjeev Webster DO [address] [place] [id number] Back Pain (Pt. was seen at ER for back ,chest and axillary area painful and burning X 1 week) Social History Tobacco Use Types Packs/Day Years [...] PM CDT documented as of this encounter Last Filed Vital Signs Vital Sign Reading Time Taken Comments Blood Pressure 150/72 05/20/2022 1:56 PM CDT Pulse 58 05/20/2022 1:05 PM CDT Temperature 36.4 ??C (97.5 ??F) 05/20/2022 1:05 PM CD T Respiratory Rate 16 05/20/2022 1:05 PM CDT Oxygen Saturation 97% 05/20/2022 1:05 PM CDT Inhaled Oxygen Concentration - - Weight 78.5 kg (173 lb) 05/20/2022 1:05 PM CDT Height 165.1 cm (5' 5 ) 05/20/2022 1:05 PM CDT Body Mass Index 28.79 05/20/2022 1:05 PM CDT documented in this encounter Functional [...] Progress Notes * Sanjeev Webster, DO - 05/20/2022 1:00 PM CDT Images from the original note were not included. GENERAL OFFICE VISIT Encounter Date: 05/20/2022 Chief Complaint: 76-year-old female presents for Back Pain (Pt. States was seen at ER for back ,chest and axillary area painful and burning X 1 week) HPI: Pt presents for ER follow-up. Pt went to [facility] on 05/16/22. Pt noted pain from her chest to her armpit to her arm to her back. She felt intense pain and burning. Full results are not available, but from available data a CXR was done that was negative. EKG showed atrial bradycardia on interpretation. Labs were similar to previous. She was recommended to take Tylenol. She states her symptoms feel worse. Pt had a PT/INR of 2.6 while there. Review of Systems Constitutional: Negative for fever. Musculoskeletal: See HPI Skin: See HPI Patient Active Problem List Diagnosis ??? Abnormal stress test ??? Chronic anticoagulation ??? Coronary artery disease involving [place] coronary artery of [place] heart without angina pectoris ??? Dyspnea on [...] (CMS/HCC) ??? Encounter for prophylactic measures, unspecified Past Medical History: Diagnosis Date ??? Aneurysm [...] 09/05/2020 ??? Tetanus/Diptheria 07/22/2014 ??? Zoster (Zostavax) 40392 Unt/0.65Ml 12/25/2015 Current Outpatient Medications Medication Sig [...] NIGHTLY AT BEDTIME 90 tablet 0 ??? valACYclovir (VALTREX) 1 g tablet Take 1 tablet (1,000 mg total) by mouth 2 (two) times daily. 14 tablet 0 ??? venlafaxine XR (EFFEXOR-XR) 150 [...] (40 mg total) by mouth daily. ??? lisinopril (PRINIVIL) 20 MG tablet Take [...] B Other (see comment) Objective: Filed Vitals: 05/20/22 1305 05/20/22 1356 BP: (!) 168/70 (!) 150/72 Pulse: (!) 58 Resp: 16 Temp: 97.5 ??F (36.4 ??C) TempSrc: Temporal SpO2: 97% Weight: 78.5 kg (173 lb) Height: 5' 5 (1.651 m) Physical Exam Vitals and nursing note reviewed. Exam conducted with a principal planner present (Natalee Brown RN). Constitutional: Comments: Seems in pain HENT: Head: Normocephalic and atraumatic. Right Ear: External ear normal. Left Ear: External ear normal. Eyes: Conjunctiva/sclera: Conjunctivae normal. Cardiovascular: Rate and Rhythm: Normal rate and regular rhythm. Pulmonary: Effort: Pulmonary effort is normal. Skin: General: Skin is warm and dry. Comments: Rash noted on chest wall and back on right side consistent with shingles Neurological: Mental Status: She is alert and oriented to person, place, and time. Psychiatric: Mood and Affect: Mood and affect normal. Assessment & Plan: Radha was seen today for back pain. Diagnoses and all orders for this visit: Herpes zoster without complication - valACYclovir (VALTREX) 1 g tablet; Take 1 tablet (1,000 mg total) by mouth 2 (two) times daily. Other chronic pain - HYDROcodone-acetaminophen (NORCO) 10-325 MG tablet; Take 1 tablet by mouth every 6 (six) hours asneeded for Pain. Indications: Chronic Pain Do not take with alprazolam. Chronic low back pain, unspecified back pain laterality, unspecified whether sciatica present - gabapentin (NEURONTIN) 300 MG capsule; Take 1 capsule (300 mg total) by mouth 3 (three) times daily. Discussion/Summary: Given symptoms and symptoms and symptoms and presentation today, will treat with Valtrex due to high risk for complication for complications. Will refill hydrocodone today and temporarily increase gabapentin as per above. Suspect the elevated blood pressure is due to pain today; will monitor. Will have patient follow-up with regular visits and recheck PT/INR in 1 month. Patient verbalized understanding. I personally spent a total of 43 minutes on the day of the encounter. This includes btxw-tk-jpbj and uhm-dzca-bp-face time I provided on the day of the encounter & excludes time spent performing separately reportable services. Sanjeev Webster DO documented in this encounter Plan of Treatment Upcoming Encounters Date Type Department Care Team (Late st Contact Info) Description 04/14/2024 2:00 PM CONCRETE BUSTER OPERATOR Office Visit [facility] Multispecialty Care - [address], [address] [place] [id number] Julio Pulido MD [address] [place] [address] documented as of this encounter Goals Goal Patient Goal Type Associated Problems Recent Progress Patient-Stated? Author Health - patient able to perform ADLs independently General On track(2023 9:49 AM CDT) Dianne Corona RN Note: 12/17/23: Patient stated she is independent with ASL's. Establish Plan for Symptom Monitoring-CHF General On track(2023 11:36 AM CONCRETE BUSTER OPERATOR) Dianne Corona RN Note: Patient will [...] Symptom Monitoring-COPD General On track(2023 11:36 AM CONCRETE BUSTER OPERATOR) Dianne Corona RN Note: Patient will [...] Symptom Monitoring-DM General On track(2023 4:33 PM CONCRETE BUSTER OPERATOR) Dianne Corona RN Note: Patient will [...] Symptom Monitoring-HTN General On track(2023 4:33 PM CONCRETE BUSTER OPERATOR) No Dianne Johnson, RN Note: Patient will monitor B/P several times per week , record readings and report to physician or CC if B/P consistently >130/80 Take your medications as prescribed. Follow up with your provider as scheduled. Take your blood pressure at least several times a week if able. documented as of this encounter Visit Diagnoses Diagnosis Herpes zoster without complication- Primary Herpes zoster without mention of complication Other chronic pain Chronic low back pain, unspecified back pain laterality, unspecified whether sciatica present documented in this encounter Additional Health Concerns Assessment Noted Time PHQ-9 Depression Total Score: 3 12/24/19 22 11:48 AM CDT documented as of this encounter Care Teams Sas Sql Developer Relationship Specialty Start Date End Date Sanjeev Webster DO [address] [place] [id number] PCP - General FAMILY PRACTICE 09/25/20 Dianne Johnson, RN [address] [place] [address] Line Construction Superintendent (Ambulatory) REGISTERED NURSE 08/14/20 documented as of this encounter
--- OUTSIDE RECORDS SUMMARY | 2024-03-15 01:00 | XMS_ITS | Encounter Summary ---
Author Organization [facility] Address [address] [facility] [place] [address] [place] [address] Care Team Providers Care Electrical Installer Name Role Phone Casey Johnson RN Unavailable [phone] Sanjeev Webster DO Primary Care Provider + Reason for Visit * Reason Onset Date Comments Care Management 05/26/2022 Encounter Details Date Type Department Care Team (Late st Contact Info) Description 05/26/2022 Patient Outreach [facility] Family & Internal Medicine [address] [phone] Casey Johnson, RN [address] [place] [address] Care Management Social History Tobacco [...] Progress Notes * Casey Johnson RN - 05/26/2022 3:37 PM CDT Chronic Care Management: 05/26/22: Left message to return phone call. 05/27/22: Contacted patient. See below for details. Patient concerns or urgent matters that need addressed: Patient reports incontinence of urine two days ago when she was on a scooter at the store for the first time. Reports incontinence of urine every night when she gets out of bed and goes to the bathroom x 2 month. Patient confirmed she is taking Furosemide at night since she goes places in the daytime. She is aware furosemide will make her urinate more often. She takes sips of water at night due increased thirst. Denies burning upon urination or cloudy urine. Stated urine does smell strong at times. She plans on f/u with on 06/03/22 and wants this addressed. Patient Status: Patient stated she has shingles and taking valacyclovir and gabapentin has been increased to TID. Continues to have burning sensation with shingles. Stated she was informed by she may have this for 3 to 5 weeks. This is going on for 2 weeks now. Patient is taking Warfarin and denies any s/s of bleeding. Patient will ask about getting INR checked at upcoming visit. Educated on s/s of CHF and COPD exacerbation. Patient denies worsening sob, cough and stated she isn't weighing herself daily. She gets weighed once a week. Stated she's gained weight since she's been eating cup cakes. She weighs 175 lbs now. Denies swelling at this time. Stated she has been eating the wrong foods and plans on cutting back. Patient stated she is not checking her B/P at home. Stated she can't find her B/P monitor at this time. Stated she can go to the pharmacy and get it checked. B/P on 05/20/22 was elevated. She was in pain during the visit. Encouraged patient the importance of checking B/P. Confirmed patient's appointment with on 06/03/22 at 9:20 am. Encouraged to contact CC before that time if needed. Patient verbalizes understanding. Plan of Care: edi coordinator will continue to follow up by [...] provider ??? Establish Plan for Symptom Monitoring-HTN Not on track Patient will monitor B/P several times per week , record readings and report to physician or CC if B/P consistently >130/80 Take your medications as prescribed. Follow up with your provider as scheduled. Take your blood pressure at least several times a week if able. 05/27/22: B/P elevated at appointment on 05/20/22 but she was in pain during visit. She has not been checking her B/P at home. Lftcwjqc-qn-ego continues to fill pill tool planner and patient taking medications as prescribed. 05/08/22: Patient taking medications as prescribed. Sjfwghnm-ws-yrf fills pill tool planner. She is not checking her B/P at home. She gets B/P checked at appointments. 04/16/22: Patient is not checking B/P at this time. Encouraged to check several times per week if able. Seen on 04/11/22. B/P stable at 120/64. Upcoming Visit Appointments: Future Appointments Date Time Provider Department Center 06/03/2022 9:20 AM Sanjeev Webster DO [id number] 09/12/2022 11:00 AM Panda Moreno MD [facility] Quality care gaps: Health Maintenance Topic Date Due ??? Kidney Health Evaluation Never done ??? Annual Medicare Wellness Visit Never done ??? Zoster [...] Chronic anticoagulation ??? Coronary artery disease involving [place] coronary artery of [place] heart without angina pectoris ??? Dyspnea on [...] 60 mg 60 mg Subcutaneous Once Panda Felicia Moreno MD Chronic Care Management- Time Spent with Patient Time spent with patient (minutes): 25 Time spent performing chart review (minutes): 10 Total time (minutes): 35 CASEY JOHNSON RN I reviewed the patient's status and education provided by CASEY JOHNSON RN. I agree with the findings and recommendations made. Cosigned by Sanjeev Webster DO at 05/28/2022 8:28 AM CDT documented in this encounter Plan of Treatment Upcoming Encounters Date Type Department Care Team (Late st Contact Info) Description 04/14/2024 2:00 PM STATISTICAL CLERK ADVERTISING Office Visit [facility] Multispecialty Care - [address], [address] [place] [phone] Julio Pulido MD [address] [place] [address], [place] [address] documented as of this encounter Goals Goal Patient Goal Type Associated Problems Recent Progress Patient-Stated? Author Health - patient able to perform ADLs independently General On track(2023 9:49 AM CDT) Casey Corona RN Note: 12/17/23: Patient stated she is independent with ASL's. Establish Plan for Symptom Monitoring-CHF General On track(2023 11:36 AM STATISTICAL CLERK ADVERTISING) Casey Corona, RN Note: Patient will recognize [...] Symptom Monitoring-COPD General On track(2023 11:36 AM STATISTICAL CLERK ADVERTISING) Casey Corona RN Note: Patient will recognize [...] Symptom Monitoring-DM General On track(2023 4:33 PM STATISTICAL CLERK ADVERTISING) Casey Corona, RN Note: Patient will manage [...] Symptom Monitoring-HTN General On track(2023 4:33 PM STATISTICAL CLERK ADVERTISING) Casey Corona, RN Note: Patient will monitor B/P several times per week , record readings and report to physician or CC if B/P consistently >130/80 Take your medications as prescribed. Follow up with your provider as scheduled. Take your blood pressure at least several times a week if able. documented as of this encounter Visit Diagnoses Diagnosis COPD (chronic obstructive pulmonary disease) ([facility] HHS/[facility])- Primary Chronic airway obstruction, not elsewhere classified Chronic diastolic heart failure ([facility]) Chronic diastolic heart failure documented in this encounter Additional Health Concerns Assessment Noted Time PHQ-9 Depression Total Score: 3 12/24/19 22 11:48 AM CDT documented as of this encounter Care Teams Electrical Installer Relationship Specialty Start Date End Date Sanjeev Webster DO [address] [place] [id number] PCP - General FAMILY PRACTICE 09/25/20 Casey Johnson, RN [address] [place] [address] Medical Field Representative (Ambulatory) REGISTERED NURSE 08/14/20 documented as of this encounter
--- OUTSIDE RECORDS SUMMARY | 2024-03-15 01:00 | XMS_ITS | Encounter Summary ---
Author Organization [facility] Address [facility]. [place], [place] [address] [place] [address] Care Team Providers Care Claim Inspector Name Role Phone Dianne Johnson RN Unavailable [phone] Sanjeev Webster DO Primary Care Provider + Reason for Referral * Consultation (Routine) - Closed Specialty Diagnoses / Procedures Referred By Contivett t Referred To Contact Diagnoses Vascular dementia without behavioral disturbance ([facility]/HCC [facility]) 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[facility]) Procedures OFFICE/OUTPT VISIT,NEW,LEVL III OFFICE/OUTPT VISIT,NEW,LEVL IV OFFICE/OUTPT VISIT,NEW,LEVL V OFFICE/OUTPT VISIT,EST,LEVL III OFFICE/OUTPT VISIT,EST,LEVL IV OFFICE/OUTPT VISIT,EST,LEVL V Sanjeev Webster DO [address] [id number] Phone: tel: fax: Wendy Sinclair MD [address] [place] [address] Phone: tel: fax: Referral ID Status Reason Start Date Expiration Date V isits Requested Visits Authorized [id number] Closed Specialty Services 06/21/2022 12/21/2022 6 6 Scheduling Instructions debby Graham replacement neurologist for Dr. Graham Reason for Visit * Reason Comments [place] Follow up Encounter Details Date Type Department Care Team (Late st Contact Info) Description 06/03/2022 9:20 AM CDT Office Visit [facility] Family & Internal Medicine [facility] [address] [place] [address] Sanjeev Webster DO [address] [place] [address] [place] (Follow up) Social History Tobacco Use Types Packs/Day Years [...] in a care home (including now)? No 04/03/2022 Comments No Sex and Gender Information Value Date Recorded Sex Assigned at Not on file Legal Sex Female 11:18 AM CDT Gender Identity Not on file Sexual Orientation Not on file COVID-19 Exposure Response Date Recorded In the last 10 days, have stefanie u been in contact with someone who was confirmed or suspected to have Coronavirus/COVID-19? No / Unsure 06/03/2022 9:21 AM CDT documented as of this encounter Last Filed Vital Signs Vital Sign Reading Time Taken Comments Blood Pressure 127/75 06/03/2022 9:26 AM CDT Pulse 64 06/03/2022 9:26 AM CDT Temperature 36.2 ??C (97.2 ??F) 06/03/2022 9:26 AM CD T Respiratory Rate 16 06/03/2022 9:26 AM CDT Oxygen Saturation 99% 06/03/2022 9:26 AM CDT Inhaled Oxygen Concentration - - Weight 81.3 kg (179 lb 3.2 oz) 06/03/2022 9:26 A M CDT Height 165.1 cm (5' 5 ) 06/03/2022 9:26 AM CDT Body Mass Index 29.82 06/03/2022 9:26 AM CDT documented in this encounter Functional [...] Progress Notes * Sanjeev Webster, DO - 06/03/2022 9:20 AM CDT Images from the original note were not included. GENERAL OFFICE VISIT Encounter Date: 06/03/2022 Chief Complaint: 77-year-old female presents for Shingles (Follow up) HPI: Pt presents for follow-up on her shingles. She has noted improvement but not resolved yet. Her pain is adequately controlled at this time. She has been taking Tylenol and [place] as needed. Pt has had more issues with urinary incontinence. This is a chronic issue. Pt is on furosemide. Of note, pt's weight is up about 6 lbs. She would like to try a medication for urinary incontinence. Pt is having issues ferosul; it is causing her to have fecal incontinence issues. She is needing tochange this as she is still needing the medication. Pt has polymyalgia rheumatica. Pt is not currently on specific medication for this; she does have chronic pain issues. Pt has vascular dementia and saccular aneurysm. ?? No recent changes regarding her dementia; it is stable today. Her aneurysm has also been stable in size since last year. Pt was not able to be seen by Dr. Padilla for various reasons including location. She is needing to see a closer specialist. Review of Systems Constitutional: Negative for fatigue and fever. Respiratory: Negative for shortness of breath. Cardiovascular: Positive for leg swelling. Neurological: See HPI Psychiatric/Behavioral: See HPI Patient Active Problem List Diagnosis ??? Abnormal stress test ??? Chronic anticoagulation ??? Coronary artery disease involving [place] coronary artery of [place] heart without angina pectoris ??? Dyspnea on [...] 09/05/2020 ??? Tetanus/Diptheria 07/22/2014 ??? Zoster (Zostavax) 07761 Unt/0.65Ml 12/25/2015 Current Outpatient Medications Medication Sig [...] Units by mouth daily. ??? furosemide (LASIX) 20 MG tablet Take [...] as needed for Wheezing. ??? ALPRAZolam (XANAX) 0.5 MG tablet Take 0.5 tablets (0.25 mg total) by mouth nightly as needed for Sleep. ??? Cholecalciferol (VITAMIN D3) 25 MCG (1000 UT) Cap Take 1,000 Units by mouth daily. ??? furosemide (LASIX) 20 MG tablet Take 2 tablets (40 mg total) by mouth daily. ??? gabapentin (NEURONTIN) 300 MG capsule Take 1 capsule (300 mg total) by mouth 3 (three) times daily. ??? HYDROcodone-acetaminophen (NORCO) 10-325 MG tablet Take [...] B Other (see comment) Objective: Filed Vitals: 06/03/22 0926 BP: 127/75 Pulse: 64 Resp: 16 Temp: 97.2 ??F (36.2 ??C) TempSrc: Temporal SpO2: 99% Weight: 81.3 kg (179 lb 3.2 oz) Height: 5' 5 (1.651 m) Physical [...] There is no abdominal tenderness. Musculoskeletal: Comments: 1+ edema on the RLE, minimal on LLE Skin: Comments: Likely resolving shingles noted on back Neurological: Mental Status: She is alert. Assessment & Plan: Radha was seen today for shingles. Diagnoses and all orders for this visit: Herpes zoster without complication Iron deficiency anemia, unspecified iron deficiency anemia type - iron polysaccharides (NIFEREX) 150 MG capsule; Take 1 capsule (150 mg total) by mouth daily. Chronic diastolic heart failure (CMS/HCC) Urge incontinence of urine - oxybutynin XL (DITROPAN-XL) 5 MG 24 hr tablet; Take 1 tablet (5 mg total) by mouth daily. Polymyalgia rheumatica (CMS/HCC) Vascular dementia without behavioral disturbance ([facility]/HCC) - Ambulatory referral to Neurology (OTHER) Saccular aneurysm - Ambulatory referral to Neurology (OTHER) Discussion/Summary: Continue shingles at this time. Will switch to different iron formulation at this time. Will increase furosemide, but will reach out to family to clarify how much she is getting. Will start on oxybutynin today; discussed side effect profile. Continue conservative treatment for polymyalgia rheumatica. Will refer to closer neurologist for vascular dementia and saccular aneurysm; has been stable with these recently. Will have pt f/u in 2-3 weeks for reassessment. I personally spent a total of 34 minutes on the day of the encounter. This includes fpoa-iy-uoeg and hqn-amwz-nv-face time I provided on the day of the encounter & excludes time spent performing separately reportable services. Sanjeev Webster DO documented in this encounter Plan of Treatment Upcoming Encounters Date Type Department Care Team (Late st Contact Info) Description 04/14/2024 2:00 PM TIPPLE WORKER Office Visit [facility] Multispecialty Care - [facility] [address] [facility], [address] [place] [address] Julio Pulido MD [address] [place] [address] Scheduled Referrals Name Type Priority Associated Diagnoses Orde r Schedule Ambulatory referral to Neurology (OTHER) Referral Routine Vascular dementia without behavioral disturbance (CMS/[facility]CC [facility]) 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[facility]) Ordered: 06/03/2022 documented as of this encounter Goals Goal Patient Goal Type Associated Problems Recent Progress Patient-Stated? Author Health - patient able to perform ADLs independently General On track(2023 9:49 AM CDT) Dianne Corona RN Note: 12/17/23: Patient stated she is independent with ASL's. Establish Plan for Symptom Monitoring-CHF General On track(2023 11:36 AM TIPPLE WORKER) Dianne Corona RN Note: Patient will [...] Symptom Monitoring-COPD General On track(2023 11:36 AM TIPPLE WORKER) Dianne Corona RN Note: Patient will [...] Symptom Monitoring-DM General On track(2023 4:33 PM TIPPLE WORKER) Dianne Corona RN Note: Patient will [...] Symptom Monitoring-HTN General On track(2023 4:33 PM TIPPLE WORKER) No Dianne Johnson, RN Note: Patient will [...] Primary Herpes zoster without mention of complication Iron deficiency anemia, unspecified iron deficiency anemia type Chronic diastolic heart failure ([facility]) Chronic diastolic heart failure Urge incontinence of urine Urge incontinence Polymyalgia rheumatica ([facility]) Polymyalgia rheumatica Vascular dementia without behavioral disturbance ([facility]) Vascular dementia, uncomplicated 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[facility]) Cerebral aneurysm, nonruptured documented in this encounter Additional Health Concerns Assessment Noted Time PHQ-9 Depression Total Score: 3 12/24/19 22 11:48 AM CDT documented as of this encounter Care Teams Claim Inspector Relationship Specialty Start Date End Date Sanjeev Webster DO [address] [place] [id number] PCP - General FAMILY PRACTICE 09/25/20 Dianne Johnson, RN [address] [place] [address] Spring Forger (Ambulatory) REGISTERED NURSE 08/14/20 documented as of this encounter
--- OUTSIDE RECORDS SUMMARY | 2024-03-15 01:00 | XMS_ITS | Encounter Summary ---
Author Organization [facility] Address [address] [facility] [place] [address] [place] [address] Care Team Providers Care Executive Chairman Of The Board Name Role Phone Dianne Johnson RN Unavailable [phone] Sanjeev Webster DO Primary Care Provider + Reason for Visit * Reason Comments Lab (SCAN) Encounter Details Date Type Department Care Team (Latest Contact Info) Description 04/25/2022 Scan HEALTH INFO SRVCS Scanned, Doc Med [...] Coronavirus/COVID-19? No / Unsure 05/01/2022 12:35 PM PREPRINT ANALYST documented as of this encounter Functional Status [...] st Contact Info) Description 04/14/2024 2:00 PM PREPRINT ANALYST Office Visit [facility] Medical Group Multispecialty Care - [facility] [address] [facility], [address] [place] [address] Julio Pulido MD 3 [place] [address] documented as of this encounter Goals Goal Patient Goal Type Associated Problems Recent Progress Patient-Stated? Author Health - patient able to perform ADLs independently General On track(2023 9:49 AM CDT) Dianne Corona RN Note: 12/17/23: Patient stated she is independent with ASL's. Establish Plan for Symptom Monitoring-CHF General On track(2023 11:36 AM PREPRINT ANALYST) Dianne Corona, RN Note: Patient will [...] Symptom Monitoring-COPD General On track(2023 11:36 AM PREPRINT ANALYST) Dianne Corona, RN Note: Patient will [...] Symptom Monitoring-DM General On track(2023 4:33 PM PREPRINT ANALYST) Dianne Corona, RN Note: Patient will manage [...] Symptom Monitoring-HTN General On track(2023 4:33 PM PREPRINT ANALYST) Dianne Corona, RN Note: Patient will [...] Associated Diagnosis Comments OUTSIDE PT/INR (SCAN ORDER) 04/25/2022 documented in this encounter Results * OUTSIDE PT/INR (SCAN) (04/25/2022) 04/25/2022 us Doc Med Group Scanned SCANNING Final Resu lt documented in this encounter Visit Diagnoses Not on filedocumented in this encounter Additional Health Concerns Assessment Noted Time PHQ-9 Depression Total Score: 3 12/24/19 22 11:48 AM CDT documented as of this encounter Care Teams Executive Chairman Of The Board Relationship Specialty Start Date End Date Sanjeev Webster DO [address] [place] [address] PCP - General FAMILY PRACTICE 09/25/20 Dianne Johnson, RN [address] [place] [address] Extras Casting Director (Ambulatory) REGISTERED NURSE 08/14/20 documented as of this encounter
--- OUTSIDE RECORDS SUMMARY | 2024-03-15 01:00 | XMS_ITS | Encounter Summary ---
Author Organization [facility] Address [facility] [facility] [place] [address] [place] [address] Care Team Providers Care Project Management It Specialist Name Role Phone Dianne Johnson RN Unavailable [phone] Sanjeev Montez DO Primary Care Provider + Reason for Visit * Reason Onset Date Comments Medication 05/14/2022 Encounter Details Date Type Department Care Team (Late st Contact Info) Description 05/14/2022 Telephone [facility] Medical Group Family & Internal Medicine [address] [place] [address] Sanjeev Montez DO [facility] [place] [address] Medication Social History Tobacco Use [...] Coronavirus/COVID-19? No / Unsure 05/01/2022 12:35 PM PUBLIC SAFETY DIRECTOR documented as of this encounter Functional [...] Progress Notes * Sanjeev Montez DO - 05/16/2022 11:34 AM CSTAddended by: SANJEEV MONTEZ on: 05/16/2022 11:34 AM Modules accepted: Orders IC SAFETY DIRECTOR * Latha Ring MA - 05/16/2022 11:27 AM CSTAddended by: LATHA RING on: 05/16/2022 11:27 AM Modules accepted: Orders IC SAFETY DIRECTOR * Latha Ring MA - 05/16/2022 11:26 AM CST This MA spoke to patient, she would like rx sent to [facility]. Rx pend for e-scribe IC SAFETY DIRECTOR IC SAFETY DIRECTOR * Yenifer Ingram MA - 05/14/2022 2:43 PM CST Called patient to see what pharmacy she would like the script sent to. IC SAFETY DIRECTOR * Donna Norwood - 05/14/2022 1:09 PM CST [facility] pharmacy called, they are out of alprazolam 0.25. It's on back order. IC SAFETY DIRECTOR documented in this encounter Plan of Treatment Upcoming Encounters Date Type Department Care Team (Late st Contact Info) Description 04/14/2024 2:00 PM PUBLIC SAFETY DIRECTOR Office Visit [facility] Medical Group Multispecialty Care - [facility] [address] [facility], [address] [place] [address] Julio Pulido MD 3 [place] [address] documented as of this encounter Goals Goal Patient Goal Type Associated Problems Recent Progress Patient-Stated? Author Health - patient able to perform ADLs independently General On track(2023 9:49 AM CDT) Dianne Corona, RN Note: 12/17/23: Patient stated she is independent with ASL's. Establish Plan for Symptom Monitoring-CHF General On track(2023 11:36 AM PUBLIC SAFETY DIRECTOR) Dianne Corona, RN Note: Patient will [...] Monitoring-COPD General On track(2023 11:36 AM PUBLIC SAFETY DIRECTOR) Dianne Corona, RN Note: Patient will [...] Monitoring-DM General On track(2023 4:33 PM PUBLIC SAFETY DIRECTOR) Dianne Corona, RN Note: Patient will [...] Monitoring-HTN General On track(2023 4:33 PM PUBLIC SAFETY DIRECTOR) Dianne Corona, RN Note: Patient will monitor B/P several times per week , record readings and report to physician or CC if B/P consistently >130/80 Take your medications as prescribed. Follow up with your provider as scheduled. Take your blood pressure at least several times a week if able. documented as of this encounter Visit Diagnoses Diagnosis Anxiety Anxiety state, unspecified documented in this encounter Additional Health Concerns Assessment Noted Time PHQ-9 Depression Total Score: 3 12/24/19 22 11:48 AM CDT documented as of this encounter Care Teams Project Management It Specialist Relationship Specialty Start Date End Date Sanjeev Montez DO [address] [place] [address] PCP - General FAMILY PRACTICE 09/25/20 Dianne Johnson, RN [address] [place] [address] Paste Mixer Liquid (Ambulatory) REGISTERED NURSE 08/14/20 documented as of this encounter
--- OUTSIDE RECORDS SUMMARY | 2024-03-15 01:00 | XMS_ITS | Encounter Summary ---
Author Organization [facility] Address [facility] [place] [address] [place] [address] Care Team Providers Care Outside Operator Name Role Phone Dianne Johnson RN Unavailable [phone] Sanjeev Webster DO Primary Care Provider + Reason for Visit * Reason Onset Date Comments Concerns 04/16/2022 Encounter Details Date Type Department Care Team (Late st Contact Info) Description 04/16/2022 Telephone [facility] Medical Group Family & Internal Medicine [id number] [place] [address] Sanjeev Webster DO [facility] [place] [address] Concerns Social History Tobacco Use [...] Coronavirus/COVID-19? No / Unsure 04/08/2022 2:14 PM TRANSPORT ASSISTANT documented as of this encounter Functional Status [...] Progress Notes * Yenifer Ingram MA - 04/16/2022 10:06 AM CST Spoke with patient and scheduled appt for 04/17/2022 at 10:40AM SPORT ASSISTANT * Sanjeev Webster DO - 04/16/2022 9:57 AM CST Pt needs to be seen. Please schedule for this week; I don't believe we have any openings today. SPORT ASSISTANT * Dianne Johnson RN - 04/16/2022 9:27 AM CST Patient stated since Venlafaxine was increased to 225 mg on 03/31/22 from 150 mg she has to push herself to go to the store, make meals, or go to [employer]. Stated she used to like going places but since medications been increased she feels depressed. Denies SI or HI at this time. Stated not at all. She's requesting 's recommendations. Patient denies worsening sob, LE edema and she is not checking her weight every morning. Encouragedpatient to check her weight and report a 3 lb weight gain over night. Patient stated her clothes feel tighter, stomach looks swollen and hands swollen. Furosemide and potassium have been stopped (seenote in Epic dated 04/03/22) due to sodium level mildly low. Patient scheduled for Protime today at 1:00 PM. Requesting 's recommendations. Patient stated if she needs any additional lab work she needs to go to [place]. FYI: Izzy ([id number]) takes care of patient's pill regional planner. She will need to be notified of any medication changes. Thank you. SPORT ASSISTANT documented in this encounter Plan of Treatment Upcoming Encounters Date Type Department Care Team (Late st Contact Info) Description 04/14/2024 2:00 PM TRANSPORT ASSISTANT Office Visit [facility] Medical Group Multispecialty Care - [facility] [address] [facility], [address] [place] [address] Julio Pulido MD 3 [place] [address] documented as of this encounter Goals Goal Patient Goal Type Associated Problems Recent Progress Patient-Stated? Author Health - patient able to perform ADLs independently General On track(2023 9:49 AM CDT) Dianne Corona RN Note: 12/17/23: Patient stated she is independent with ASL's. Establish Plan for Symptom Monitoring-CHF General On track(2023 11:36 AM TRANSPORT ASSISTANT) Dianne Corona RN Note: Patient will [...] Symptom Monitoring-COPD General On track(2023 11:36 AM TRANSPORT ASSISTANT) Dianne Corona RN Note: Patient will [...] Symptom Monitoring-DM General On track(2023 4:33 PM TRANSPORT ASSISTANT) Dianne Corona RN Note: Patient will [...] Symptom Monitoring-HTN General On track(2023 4:33 PM TRANSPORT ASSISTANT) Dianne Corona, DALE Note: Patient will monitor [...] documented as of this encounter Care Teams Outside Operator Relationship Specialty Start Date End Date Sanjeev Webster DO [address] [place] [address] PCP - General FAMILY PRACTICE 09/25/20 Dianne Johnson RN [address] [place] [address], [place] [address] Video Game Programmer (Ambulatory) REGISTERED NURSE 08/14/20 documented as of this encounter
--- OUTSIDE RECORDS SUMMARY | 2024-03-15 01:00 | XMS_ITS | Encounter Summary ---
Author Organization [facility] Address Critical access hospital6 [facility] [place] [address] [place] [address] Care Team Providers Care Telephone Messenger Name Role Phone Dianne Johnson RN Unavailable [phone] Sanjeev Webster DO Primary Care Provider + Reason for Visit * Reason Onset Date Comments Information 04/24/2022 Encounter Details Date Type Department Care Team (Late st Contact Info) Description 04/24/2022 Telephone [facility] Medical Group Family & Internal Medicine [id number] [place] [address] Sanjeev Webster DO [facility] [place] [address] Information Social History Tobacco Use [...] in a skilled nursing (including now)? No 04/03/2022 Comments No Sex [...] Coronavirus/COVID-19? No / Unsure 04/17/2022 10:28 AM CONCAVING MACHINE OPERATOR documented as of this encounter Functional [...] Progress Notes * Dianne Johnson RN - 04/24/2022 4:10 PM CST Patient declines going to ER as recommended by . Stated she will go to [place] tomorrow morning and get lab work done. She will contact 's office after she gets it done. Thank you. AVING MACHINE OPERATOR documented in this encounter Plan of Treatment Upcoming Encounters Date Type Department Care Team (Late st Contact Info) Description 04/14/2024 2:00 PM CONCAVING MACHINE OPERATOR Office Visit [facility] Medical Group Multispecialty Care - [facility] 3 [facility], [address] [place] [address] Julio Pulido MD 3 [place] [address] documented as of this encounter Goals Goal Patient Goal Type Associated Problems Recent Progress Patient-Stated? Author Health - patient able to perform ADLs independently General On track(2023 9:49 AM CDT) No Dianne Johnson RN Note: 12/17/23: Patient stated she is independent with ASL's. Establish Plan for Symptom Monitoring-CHF General On track(2023 11:36 AM CONCAVING MACHINE OPERATOR) Dianne Corona RN Note: Patient [...] Symptom Monitoring-COPD General On track(2023 11:36 AM CONCAVING MACHINE OPERATOR) Dianne Corona RN Note: Patient [...] Symptom Monitoring-DM General On track(2023 4:33 PM CONCAVING MACHINE OPERATOR) Dianne Corona RN Note: Patient [...] Symptom Monitoring-HTN General On track(2023 4:33 PM CONCAVING MACHINE OPERATOR) Dianne Corona RN Note: Patient [...] documented as of this encounter Care Teams Telephone Messenger Relationship Specialty Start Date End Date Sanjeev Webster DO [address] [place] [address] PCP - General FAMILY PRACTICE 09/25/20 Dianne Johnson, RN [address] [place] [address] Net Architect (Ambulatory) REGISTERED NURSE 08/14/20 documented as of this encounter
--- OUTSIDE RECORDS SUMMARY | 2024-03-15 01:00 | XMS_ITS | Encounter Summary ---
Author Organization [facility] Address [facility] [facility] [place] [address] [place] [address] Care Team Providers Care Oracle Ebs Architect Name Role Phone Dianne Johnson RN Unavailable [phone] Sanjeev Webster DO Primary Care Provider + Reason for Visit * Reason Onset Date Comments Follow Up Call 05/27/2022 Encounter Details Date Type Department Care Team (Late st Contact Info) Description 05/27/2022 Telephone [facility] Medical Group Family & Internal Medicine [id number] [place] [address] Sanjeev Webster DO [address] [place] [address] Follow Up Call Social History [...] slept in a retirement (including now)? No 04/03/2022 Comments No Sex [...] Progress Notes * Dianne Johnson RN - 05/27/2022 4:54 PM CDT Patient concerns that need addressed: Patient reports incontinence of urine two days ago when she was on a scooter at the store for the first time in public. Reports incontinence of urine every night when she gets out of bed and goes to the bathroom x 2 month. Patient confirmed she is taking Furosemide at night since she goes places inthe daytime. She is aware furosemide will make her urinate more often. She takes sips of water at night due increased thirst. Denies burning upon urination or cloudy urine. Stated urine does smell strong at times. She plans on f/u with on 06/03/22 and wants to address at [facility]. CC added this information to appointment details. documented in this encounter Plan of Treatment Upcoming Encounters Date Type Department Care Team (Late st Contact Info) Description 04/14/2024 2:00 PM GARDENER FLORIST Office Visit [facility] Medical Group Multispecialty Care - [address], [address] [place] [address] Julio Pulido MD 3 [place] [address] documented as of this encounter Goals Goal Patient Goal Type Associated Problems Recent Progress Patient-Stated? Author Health - patient able to perform ADLs independently General On track(2023 9:49 AM CDT) No Dianne Johnson, RN Note: 12/17/23: Patient stated she is independent with ASL's. Establish Plan for Symptom Monitoring-CHF General On track(2023 11:36 AM GARDENER FLORIST) Dianne Corona RN Note: Patient will recognize [...] Symptom Monitoring-COPD General On track(2023 11:36 AM GARDENER FLORIST) Dianne Corona RN Note: Patient will recognize [...] Symptom Monitoring-DM General On track(2023 4:33 PM GARDENER FLORIST) Dianne Corona RN Note: Patient will manage [...] Symptom Monitoring-HTN General On track(2023 4:33 PM GARDENER FLORIST) Dianne Corona, RN Note: Patient will monitor [...] as of this encounter Care Teams Oracle Ebs Architect Relationship Specialty Start Date End Date Sanjeev Webster DO [address] [place] [address] PCP - General FAMILY PRACTICE 09/25/20 Dianne Johnson, RN [address] [place] [address] Long Term Care Social Worker (Ambulatory) REGISTERED NURSE 08/14/20 documented as of this encounter
--- OUTSIDE RECORDS SUMMARY | 2024-03-15 01:00 | XMS_ITS | Encounter Summary ---
Author Organization [facility] Address [facility] [place] [address] [place] [address] Care Team Providers Care Credit Report Checker Name Role Phone Dianne Johnson RN Unavailable [phone] Sanjeev Webster DO Primary Care Provider + Reason for Visit * Reason Onset Date Comments Question 05/20/2022 Encounter Details Date Type Department Care Team (Late st Contact Info) Description 05/20/2022 Telephone [facility] Medical Group Family & Internal Medicine [id number] [place] [address] Sanjeev Webster DO [facility]1 [place] [address] Question Social History Tobacco Use [...] slept in a halfway (including now)? No 04/03/2022 Comments No Sex [...] Progress Notes * Trixie Jose MA - 05/20/2022 5:29 PM CDT Izzy informed of medications and to rechek inr in 1 month. She will have Radha call back to schedule the inr. tn * Sanjeev Webster DO - 05/20/2022 1:50 PM CDT Please let pt's DIL Izzy know that we changed pt's meds today. We put her on Valtrex (sent to pharmacy), refilled hydrocodone (sent to pharmacy), and increased her gabapentin to three times daily (sent to pharmacy). In addition, pt's most recent PT/INR was 2.6 per pt's paperwork today. We can repeat it in 1 month. documented in this encounter Plan of Treatment Upcoming Encounters Date Type Department Care Team (Late st Contact Info) Description 04/14/2024 2:00 PM MICROBIOLOGY QUALITY CONTROL TECHNICIAN Office Visit [facility] Medical Group Multispecialty Care - [facility] [address] [facility], [address] [place] [phone] Julio Pulido MD 3 [place] [address] documented as of this encounter Goals Goal Patient Goal Type Associated Problems Recent Progress Patient-Stated? Author Health - patient able to perform ADLs independently General On track(2023 9:49 AM CDT) Dianne Corona RN Note: 12/17/23: Patient stated she is independent with ASL's. Establish Plan for Symptom Monitoring-CHF General On track(2023 11:36 AM MICROBIOLOGY QUALITY CONTROL TECHNICIAN) Dianne Corona RN Note: Patient will [...] Symptom Monitoring-COPD General On track(2023 11:36 AM MICROBIOLOGY QUALITY CONTROL TECHNICIAN) Dianne Corona RN Note: Patient will [...] Symptom Monitoring-DM General On track(2023 4:33 PM MICROBIOLOGY QUALITY CONTROL TECHNICIAN) Dianne Corona RN Note: Patient will [...] Symptom Monitoring-HTN General On track(2023 4:33 PM MICROBIOLOGY QUALITY CONTROL TECHNICIAN) No Dianne Johnson, RN Note: Patient [...] as of this encounter Care Teams Credit Report Checker Relationship Specialty Start Date End Date Sanjeev Webster DO [address] [place] [id number] PCP - General FAMILY PRACTICE 09/25/20 Dianne Johnson, RN [address] [place] [address] Iron Caster (Ambulatory) REGISTERED NURSE 08/14/20 documented as of this encounter
--- OUTSIDE RECORDS SUMMARY | 2024-03-15 01:00 | XMS_ITS | Encounter Summary ---
Author Organization [facility] Address [address] [facility] [place] [address] [place] [address] Care Team Providers Care Manager Management Name Role Phone Dianne Johnson RN Unavailable [phone] Sanjeev Webster DO Primary Care Provider + Reason for Visit * Reason Comments Dilated Eye Exam (SCAN) Encounter Details Date Type Department Care Team (Late st Contact Info) Description 04/21/2022 Scan HEALTH INFO SRVCS Scanned, Doc Med Group Dilated Eye Exam (SCAN) Social History Tobacco Use Types Packs/Day [...] Coronavirus/COVID-19? No / Unsure 04/17/2022 10:28 AM RADIO REPAIRER DOMESTIC documented as of this encounter Functional Status [...] st Contact Info) Description 04/14/2024 2:00 PM RADIO REPAIRER DOMESTIC Office Visit [facility] Medical Group Multispecialty Care - [facility] [address] [facility], [address] [place] [phone] Julio Pulido MD 3 [place] [address] documented as of this encounter Goals Goal Patient Goal Type Associated Problems Recent Progress Patient-Stated? Author Health - patient able to perform ADLs independently General On track(2023 9:49 AM CDT) Dianne Corona RN Note: 12/17/23: Patient stated she is independent with ASL's. Establish Plan for Symptom Monitoring-CHF General On track(2023 11:36 AM RADIO REPAIRER DOMESTIC) Dianne Corona RN Note: Patient will recognize [...] Symptom Monitoring-COPD General On track(2023 11:36 AM RADIO REPAIRER DOMESTIC) Dianne Corona RN Note: Patient will recognize [...] Symptom Monitoring-DM General On track(2023 4:33 PM RADIO REPAIRER DOMESTIC) Dianne Corona, RN Note: Patient will manage [...] Symptom Monitoring-HTN General On track(2023 4:33 PM RADIO REPAIRER DOMESTIC) Dianne Corona, RN Note: Patient will monitor B/P several times per week , record readings and report to physician or CC if B/P consistently >130/80 Take your medications as prescribed. Follow up with your provider as scheduled. Take your blood pressure at least several times a week if able. documented as of this encounter Procedures Procedure Name Priority Date/Time Associated Diagnosis Comments DIABETIC RETINOPATHY EXAM (NEGATIVE)(SCAN ORDER) Routine 04/21/2022 documented in this encounter Results * DIABETIC RETINOPATHY EXAM (NEGATIVE)(SCAN) (04/21/2022) us Doc Med Group Scanned SCANNING Final Resu lt [facility] ONBASE documented in this encounter Visit Diagnoses Not on filedocumented in this encounter Additional Health Concerns Assessment Noted Time PHQ-9 Depression Total Score: 3 12/24/19 22 11:48 AM CDT documented as of this encounter Care Teams Manager Management Relationship Specialty Start Date End Date Sanjeev Webster DO [address] [place] [address] PCP - General FAMILY PRACTICE 09/25/20 Dianne Johnson, RN [address] [place] [address] Metal Wire Technician (Ambulatory) REGISTERED NURSE 08/14/20 documented as of this encounter
--- OUTSIDE RECORDS SUMMARY | 2024-03-15 01:01 | XMS_ITS | Encounter Summary ---
Author Organization [facility] Address [facility] [place] [address] [place] [address] Care Team Providers Care Merchandise Support Associate Name Role Phone Casey Johnson RN Unavailable [phone] Sanjeev Webster DO Primary Care Provider + Reason for Visit * Reason Onset Date Comments Care Management 03/27/2022 Encounter Details Date Type Department Care Team (Late st Contact Info) Description 03/27/2022 Patient Outreach [facility] Medical Group Family & Internal Medicine [address] [address] Casey Jonhson, RN [address] [place] [address] Care Management Social History Tobacco Use Types Packs/Day Years Used Date Smoking Tobacco: Never Smokeless Tobacco: Never Comments:non smoker Alcohol Use Standard Drinks/Week Comments Not Currently 0 (1 standard drink = 0.6 oz pur e alcohol) PHQ-2 Answer Date Recorded PHQ-2 Score - If the patient scores above 3, please move on to questions 3-9 1 01/07/2022 Comments No Sex and Gender Information Value Date Recorded Sex Assigned at Not on file Legal Sex Female 11:18 AM CDT Gender Identity Not on file Sexual Orientation Not on file COVID-19 Exposure Response Date Recorded In the last 10 days, have yo u been in contact with someone who was confirmed or suspected to have Coronavirus/COVID-19? No / Unsure 03/31/2022 10:01 AM CHOCOLATE FINISHER documented as of this encounter Functional Status [...] Progress Notes * Casey Johnson RN - 03/27/2022 10:21 AM CST Chronic Care Management: 03/27: Left message to return phone call. 03/27: Attempted to contact patient again without a response. Left message earlier to return phone call. Will await a return call. Plan of Care: outreach coordinator will continue to follow up by phone, provide resources when needed, educate on disease management, and assess chronic conditions Upcoming Visit Appointments: Future Appointments Date Time Provider Department Center 03/31/2022 10:40 AM Sanjeev Webster DO [facility] 05/02/2022 11:00 AM MD [facility] Quality care gaps: Health Maintenance Topic Date Due ??? Kidney Health Evaluation Never done ??? Diabetes: Retinopathy Eye Exam Never done ??? Medicare Wellness Visit Never done ??? Zoster Vaccines (2 of 3) 02/19/2016 ??? COVID-19 Vaccine (5 - Booster for Pfizer series) 10/24/2021 ??? Hemoglobin A1C 07/13/2022 ??? Lipid Panel 08/29/2022 ??? DTaP, Tdap and Td Vaccines (4 - Td or Tdap) 09/05/2030 ??? DEXA SCAN (GENERAL) Completed ??? Influenza Adult Completed ??? Pneumococcal Vaccine: 65+ Years Completed ??? Hepatitis C Completed ??? Meningococcal Vaccine Aged Out Problem List: Patient Active Problem List Diagnosis ??? Abnormal stress test ??? Chronic anticoagulation ??? Coronary artery disease involving [place] coronary artery of [place] heart without angina pectoris ??? Dyspnea on [...] (XANAX) 0.25 MG tablet Take 1 tablet by mouth twice daily as needed for anxiety (Patient taking differently: Take 0.25 mg by mouth nightly.) 30 tablet 0 ??? Cholecalciferol (VITAMIN D3) 25 MCG (1000 UT) Cap Take 1,000 Units by mouth daily. ??? FEROSUL 325 (65 Fe) MG tablet Take 1 tablet by mouth once daily 90 tablet 0 ??? furosemide (LASIX) 20 MG tablet Take 3 tablets by mouth once daily 90 tablet 0 ??? gabapentin (NEURONTIN) 300 MG capsule Take 1 capsule (300 mg total) by mouth 2 (two) times daily. 180 capsule 0 ??? HYDROcodone-acetaminophen (NORCO) 10-325 MG tablet Take 1 tablet by mouth every 6 (six) hours as needed for Pain. Indications: Chronic Pain Do not take with alprazolam. 30 tablet 0 ??? lisinopril (PRINIVIL) 20 MG tablet Take 1 tablet (20 mg total) by mouth daily. 30 tablet 2 ??? methIMAzole (TAPAZOLE) 10 MG tablet Take [...] mg total) by mouth daily. 90 capsule 0 ??? warfarin (COUMADIN) 6 MG tablet Take 1 tablet (6 mg total) by mouth daily. 30 tablet 2 No current facility-administered medications for this visit. Facility-Administered Medications Ordered in Other Visits Medication Dose Route Frequency Provider Last Rate Last Admin ??? denosumab (PROLIA) injection 60 mg 60 mg Subcutaneous Once MD CASEY Christine, RN OLATE FINISHER documented in this encounter Plan of Treatment Upcoming Encounters Date Type Department Care Team (Late st Contact Info) Description 04/14/2024 2:00 PM CHOCOLATE FINISHER Office Visit [facility] Medical Group Multispecialty Care - [facility] [address] [facility], [address] [place] [address] Julio Pulido MD [address] [place] [address] documented as of this encounter Goals Goal Patient Goal Type Associated Problems Recent Progress Patient-Stated? Author Health - patient able to perform ADLs independently General On track(2023 9:49 AM CDT) Casey Corona RN Note: 12/17/23: Patient stated she is independent with ASL's. Establish Plan for Symptom Monitoring-CHF General On track(2023 11:36 AM CHOCOLATE FINISHER) Casey Corona, RN Note: Patient will recognize [...] Symptom Monitoring-COPD General On track(2023 11:36 AM CHOCOLATE FINISHER) Casey Corona RN Note: Patient will recognize [...] Symptom Monitoring-DM General On track(2023 4:33 PM CHOCOLATE FINISHER) Casey Corona RN Note: Patient will manage [...] Symptom Monitoring-HTN General On track(2023 4:33 PM CHOCOLATE FINISHER) Casey Corona, RN Note: Patient will monitor [...] documented as of this encounter Care Teams Merchandise Support Associate Relationship Specialty Start Date End Date Sanjeev Webster DO [address] [place] [address] [id number] PCP - General FAMILY PRACTICE 09/25/20 Casey Johnson RN [address] [place] [address] Dining Services Director (Ambulatory) REGISTERED NURSE 08/14/20 documented as of this encounter
--- OUTSIDE RECORDS SUMMARY | 2024-03-15 01:01 | XMS_ITS | Encounter Summary ---
Author Organization [facility] Address [facility] access hospital6 [facility] [place] [address] [place] [address] Care Team Providers Care Clerk Typist Name Role Phone Casey Johnson RN Unavailable [phone] Sanjeev Webster DO Primary Care Provider + Reason for Visit * Reason Onset Date Comments Care Management 04/16/2022 Encounter Details Date Type Department Care Team (Late st Contact Info) Description 04/16/2022 Patient Outreach [facility] Medical Group Family & Internal Medicine [address] [address] Casey Johnson, RN [address] [place] [address] Care Management Social History Tobacco Use Types Packs/Day Years Used Date Smoking Tobacco: Never Smokeless Tobacco: Never Comments:non smoker Alcohol Use Standard Drinks/Week Comments Not Currently 0 (1 standard drink = 0.6 oz pur e alcohol) Overall Financial Resource Strain (CARDIA) Rah r Date Recorded How hard is it [...] Coronavirus/COVID-19? No / Unsure 04/08/2022 2:14 PM KNIFE GLAZER documented as of this encounter Functional Status * RETIRED Are you deaf or do you have serious difficulty hearing Answer Date of Assessment Author Status Yes 11/05/2021 7:00 PM CDT Acti ve * RETIRED Are you blind or do [...] Progress Notes * Casey Johnson RN - 04/16/2022 8:29 AM CST Chronic Care Management: Patient concerns or urgent matters that need addressed: Patient stated since Venlafaxine was increased to [...] swollen. Furosemide and potassium have been stopped due to sodium level mildly low. Patient scheduled for Protime today at 1:00 PM. Message sent to 's nursing team for recommendations. Patient stated if she needs any additional lab work she needs to go to [place]. The above information sent to and 's nursing team. Patient Status: Contacted patient today. She is a very pleasant 76 year old. Reminded patient she is due for a Protime. Patient stated she is aware and tried to contact 's office to get in today. Offeredto call 's office for patient to get this scheduled. Patient appreciates it. Stated shecan get it done anytime after 10:00 am but prefers around noon or 1:00 PM. Stated she doesn't need an appointment with since she has an appointment on 05/01/22. Reviewed chart and patientis correct. 04/16/22: Contacted 's office and made patient an appointment for Protime at 1:00 PM. Patient is aware. Seen by Cardiology on 04/11/22. B/P was 120/64. DM: Up-to-date on A1C done on 01/13/22: 6.2 %. Patient not checking BG. She is currently not on any DM medications. Patient denies any issues with s/s of bleeding and no recent falls. Denies COPD exacerbation s/s atthis time. Stated she doesn't need to use albuterol inhaler very often. Denies CHF exacerbation. Stated she is retaining some fluid in her hands and stomach since Furosemide was put on hold. See above for details. Patient will get Protime at PCP office. Encouraged to call CC at the onset of any changes. Patient verbalizes understanding. Plan of Care: park activities coordinator will continue to follow up by [...] any medications without discussing with your provider. 04/16/22: See note for details. ??? Establish Plan [...] any of your medications without notifying provider 04/16/22: Stable at this time. ??? Establish Plan for Symptom Monitoring-DM On [...] least several times a week if able. 04/16/22: Patient is not checking B/P at this time. Encouraged to check several times per week if able. Seen on 04/11/22. B/P stable at 120/64. Upcoming Visit Appointments: Future Appointments Date Time Provider Department Center 04/17/2022 10:40 AM Sanjeev Webster, DO [facility] 05/01/2022 1:00 PM Sanjeev Webster, DO [facility] 05/02/2022 11:00 AM Panda Moreno MD [facility] [...] Chronic anticoagulation ??? Coronary artery disease involving [place] coronary artery of [place] heart without angina pectoris ??? Dyspnea on [...] diabetes mellitus ([facility]/HCC) Medications: Current Outpatient Medications Medication Sig Dispense [...] NIGHTLY AT BEDTIME 90 tablet 0 ??? Venlafaxine HCl (VENLAFAXINE XR) 225 MG TABLET SR 24 HR 24 hr tablet Take 225 mg by mouth daily. 90 tablet 1 ??? warfarin (COUMADIN) 1 MG tablet Take 1 tablet (1 mg total) by mouth daily. 30 tablet 0 ??? warfarin (COUMADIN) 6 [...] with Patient Time spent with patient (minutes): 27 Time spent performing chart review (minutes): 8 Total time (minutes): 35 CASEY JOHNSON RN I reviewed the patient's status and education provided by CASEY JOHNSON RN. I agree with the findings and recommendations made. Cosigned by Sanjeev Webster DO at 04/17/2022 4:25 PM KNIFE GLAZER E GLAZER E GLAZER documented in this encounter Plan of Treatment Upcoming Encounters Date Type Department Care Team (Late st Contact Info) Description 04/14/2024 2:00 PM KNIFE GLAZER Office Visit [facility] Medical Group Multispecialty Care - [facility] [address] [facility], [address] [place] [address] Julio Pulido MD [address] [place] [address] documented as of this encounter Goals Goal Patient Goal Type Associated Problems Recent Progress Patient-Stated? Author Health - patient able to perform ADLs independently General On track(2023 9:49 AM CDT) Casey Corona RN Note: 12/17/23: Patient stated she is independent with ASL's. Establish Plan for Symptom Monitoring-CHF General On track(2023 11:36 AM KNIFE GLAZER) Casey Corona, RN Note: Patient will recognize [...] Monitoring-COPD General On track(2023 11:36 AM KNIFE GLAZER) Casey Corona RN Note: Patient will recognize [...] Monitoring-DM General On track(2023 4:33 PM KNIFE GLAZER) Casey Corona RN Note: Patient will manage [...] Monitoring-HTN General On track(2023 4:33 PM KNIFE GLAZER) Casey Corona, DALE Note: Patient will monitor B/P several times per week , record readings and report to physician or CC if B/P consistently >130/80 Take your medications as prescribed. Follow up with your provider as scheduled. Take your blood pressure at least several times a week if able. documented as of this encounter Visit Diagnoses Diagnosis Diastolic heart failure, unspecified HF chronicity ([facility])- Primary Type 2 diabetes mellitus ([facility]) Type II or unspecified type diabetes mellitus without mention of complication, not stated as uncontrolled COPD (chronic obstructive pulmonary disease) ([facility]) Chronic airway obstruction, not elsewhere classified documented in this encounter Additional Health Concerns Assessment Noted Time PHQ-9 Depression Total Score: 3 12/24/19 22 11:48 AM CDT documented as of this encounter Care Teams Clerk Typist Relationship Specialty Start Date End Date Sanjeev Webster DO [address] [place] [id number] PCP - General FAMILY PRACTICE 09/25/20 Casey Johnson, RN [address] [place] [address] Ore Crushing Dust Collector (Ambulatory) REGISTERED NURSE 08/14/20 documented as of this encounter
--- OUTSIDE RECORDS SUMMARY | 2024-03-15 01:01 | XMS_ITS | Encounter Summary ---
Author Organization [place] Address [facility] [place] [address] [place] [address] Care Team Providers Care Jig Maker Name Role Phone Dianne Johnson RN Unavailable [phone] Sanjeev Webster DO Primary Care Provider + Reason for Visit * Reason Comments Anticoagulation Encounter Details Date Type Department Care Team (Late st Contact Info) Description 03/25/2022 11:00 AM ACID DUMPER Allied Health/Nurse Visit [facility] Medical Group Family & Internal Medicine [address] [address] Sanjeev Webster DO [address] [place] [address] Anticoagulation Social History Tobacco Use Types [...] suspected to have Coronavirus/COVID-19? No / Unsure 03/25/2022 10:46 AM ACID DUMPER documented as of this encounter Functional Status [...] Status No 11/05/2021 7:00 PM CDT Stephanie Rodriguze R N Active * Because of a [...] Progress Notes * Shanel Staley MA - 03/25/2022 11:00 AM CST Capillary INR resulted at 1.4. Retested sample to exclude error, retest was also 1.4. DUMPER documented in this encounter Plan of Treatment Upcoming Encounters Date Type Department Care Team (Late st Contact Info) Description 04/14/2024 2:00 PM ACID DUMPER Office Visit [facility] Medical Group Multispecialty Care - [facility] [address] [facility], [address] [place] [address] Julio Pulido MD [address] [place] [address] documented as of this encounter Goals Goal Patient Goal Type Associated Problems Recent Progress Patient-Stated? Author Health - patient able to perform ADLs independently General On track(2023 9:49 AM CDT) Dianne Corona RN Note: 12/17/23: Patient stated she is independent with ASL's. Establish Plan for Symptom Monitoring-CHF General On track(2023 11:36 AM ACID DUMPER) Dianne Corona RN Note: Patient will [...] Symptom Monitoring-COPD General On track(2023 11:36 AM ACID DUMPER) Dianne Corona RN Note: Patient will [...] Symptom Monitoring-DM General On track(2023 4:33 PM ACID DUMPER) Dianne Corona RN Note: Patient will [...] Symptom Monitoring-HTN General On track(2023 4:33 PM ACID DUMPER) Dianne Corona RN Note: Patient will [...] Date/Time Associated Diagnosis Comments COLLECT.CAPILLARY (FNGR,HEEL,EAR) Routine 03/25/2022 11:05 AM ACID DUMPER Chronic anticoagulation PROTHROMBIN TIME, FINGERSTICK Routine 03/25/2022 Chronic anticoagulation documented in this encounter Results * PROTIME/INR, FINGERSTICK (03/25/2022) INR WHOLE BLOOD 1.40 MG-[facility] Comment:Capillary INR result ed at 1.4. Retested sample to exclude error, retest was also 1.4. 03/25/2022 us Sanjeev Webster DO LABORATORY Final Re sult [facility] [address] [place] [address], documented in this encounter Visit Diagnoses Diagnosis Chronic anticoagulation- Primary Encounter for long-term (current) use of anticoagulants documented in this encounter Additional Health Concerns Assessment Noted Time PHQ-9 Depression Total Score: 3 12/24/19 22 11:48 AM CDT documented as of this encounter Care Teams Jig Maker Relationship Specialty Start Date End Date Sanjeev Webster DO [address] [place] [address] PCP - General FAMILY PRACTICE 09/25/20 Dianne Johnson, RN [facility] [place] [address] Fibre Optics Jointer (Ambulatory) REGISTERED NURSE 08/14/20 documented as of this encounter
--- OUTSIDE RECORDS SUMMARY | 2024-03-15 01:01 | XMS_ITS | Encounter Summary ---
Author Organization [facility] Address [facility]. [place], [place] [address] [place] [address] Care Team Providers Care Termite Control Technician Name Role Phone Dianne Johnson RN Unavailable [phone] Sanjeev Montez DO Primary Care Provider + Reason for Visit * Reason Comments Dizziness Encounter Details Date Type Department Care Team (Late st Contact Info) Description 03/18/2022 11:20 AM TRIMMING OPERATOR Office Visit [facility] Family & Internal Medicine [address] [address] Sanjeev Montez DO [address] [place] [address] Dizziness Social History Tobacco Use Types Packs/Day Years [...] suspected to have Coronavirus/COVID-19? No / Unsure 03/18/2022 11:37 AM TRIMMING OPERATOR documented as of this encounter Last Filed Vital Signs Vital Sign Reading Time Taken Comments Blood Pressure 85/55 03/18/2022 12:38 PM TRIMMING OPERATOR Pulse 112 03/18/2022 11:42 AM TRIMMING OPERATOR Temperature 36.3 ??C (97.3 ??F) 03/18/2022 11:[address] Respiratory Rate 16 03/18/2022 11:42 AM TRIMMING OPERATOR Oxygen Saturation 98% 03/18/2022 11:42 AM TRIMMING OPERATOR Inhaled Oxygen Concentration - - Weight 76.4 kg (168 lb 8 oz) 03/18/2022 11:42 AM TRIMMING OPERATOR Height 165.1 cm (5' 5 ) 03/18/2022 11:42 AM TRIMMING OPERATOR Body Mass Index 28.04 03/18/2022 11:42 AM TRIMMING OPERATOR documented in this encounter Functional Status * [...] Progress Notes * Sanjeev Montez DO - 03/18/2022 11:20 AM CSTAssociated Order(s): ECG Review/Interpret Only Post-Procedure Diagnose(s): Hypotension, unspecified hypotension type; Tachycardia, unspecified; Dizziness Images from the original note were not included. GENERAL OFFICE VISIT Encounter Date: 03/18/2022 Chief Complaint: 76-year-old female presents for Dizziness HPI: Pt presents for dizziness. She states it started a few days ago. Her BP today is notably low at 87/58. Her HR is also elevated; she states she took all of her medications as prescribed including metoprolol. Pt also has a headache and some sinus pressure. She is unsure if she has any SOB. Pt has hyperthyroidism. She is on methimazole at 10 mg daily. Pt is scheduled for follow-up with endocrine in late April. Pt was going to have a thyroid uptake scan for this, but it has not been completed. Pt's most recent thyroid testing showed a TSH of 033 with FT4 at 1.4. Pt's TSI that was at271 and an elevated thyroid peroxidase antibody at 75. Of note, HENRI was weakly positive at 1:40. Pt has secondary hyperparathyroidism and osteoporosis, confirmed on DEXA from 07/15/21. Pt is on Prolia for osteoporosis through Dr. Moreno's office. Pt was considered for parathyroid surgery. Pt had a random urine calcium of 202. PTH was still elevated at 146.5. Serum calcium was elevated at 11.8. Patient presents for major depressive disorder. Pt has had this for multiple years. Concurrent psychiatric conditions include anxiety. Pt is currently taking venlafaxine and Xanax prn. Pt does not see counseling. Pt's symptoms are becoming more difficult to control. Patient would like to change medications as prescribed. Review of Systems Constitutional: Negative for fever. HENT: Negative for ear pain and sinus pressure. Respiratory: Negative for shortness of breath. Cardiovascular: Negative for chest pain. Endocrine: See HPI Skin: Negative for rash. Neurological: Positive for dizziness. Negative for headaches. Patient Active Problem List Diagnosis ??? Abnormal stress test ??? Chronic anticoagulation ??? Coronary artery disease involving saxman coronary artery of saxman heart without angina pectoris ??? Dyspnea on [...] Social Determinants of Health Financial Resource Strain: Not on file Food Insecurity: Not on file Transportation Needs: Not on file Physical Activity: Not on file Stress: Not on file Social Connections: Not on file Intimate Partner Violence: Not on file Housing Stability: Not on file Immunization History Administered Date(s) Administered ? ? [...] 09/05/2020 ??? Tetanus/Diptheria 07/22/2014 ??? Zoster (Zostavax) 70769 Unt/0.65Ml 12/25/2015 Current Outpatient Medications Medication Sig Dispense Refill ??? acetaminophen (TYLENOL) 500 MG tablet Take 500 mg by mouth daily as needed. ??? albuterol sulfate HFA 108 (90 Base) MCG/ACT inhaler Inhale 2 puffs into the lungs every 6 (six)hours as needed for Wheezing. 18 g 1 ??? ALPRAZolam (XANAX) 0.25 MG tablet Take 1 tablet by mouth twice daily as needed for anxiety 30 tablet 0 ??? Cholecalciferol (VITAMIN D3) 25 MCG (1000 UT) Cap Take 1,000 Units by mouth daily. ??? FEROSUL 325 (65 Fe) MG tablet Take 1 tablet by mouth once daily 90 tablet 0 ??? fluticasone propionate 50 MCG/ACT nasal spray 2 sprays by Nasal route daily. ??? furosemide (LASIX) 20 MG tablet [...] take with alprazolam. 30 tablet 0 ??? lidocaine 5 % Apply pain patch to affected area. Change after 12 hours. 6 patch 0 ??? lisinopril (PRINIVIL) 20 MG tablet [...] 500 mg by mouth daily as needed. ??? albuterol sulfate HFA 108 (90 Base) MCG/ACT inhaler Inhale 2 puffs into the lungs every 6 (six)hours as needed for Wheezing. ??? ALPRAZolam (XANAX) 0.25 MG tablet Take 1 tablet by mouth twice daily as needed for anxiety ??? Cholecalciferol (VITAMIN D3) 25 MCG (1000 UT) Cap Take 1,000 Units by mouth daily. ??? FEROSUL 325 (65 Fe) MG tablet Take 1 tablet by mouth once daily ??? fluticasone propionate 50 MCG/ACT nasal spray 2 sprays by Nasal route daily. ??? furosemide (LASIX) 20 MG tablet Take 3 tablets by mouth once daily ??? gabapentin (NEURONTIN) 300 MG capsule Take 1 capsule (300 mg total) by mouth 2 (two) times daily. ??? lidocaine 5 % Apply pain patch to affected area. Change after 12 hours. ??? lisinopril (PRINIVIL) 20 MG tablet Take 1 tablet (20 mg total) by mouth daily. ??? methIMAzole (TAPAZOLE) 10 MG tablet Take [...] total) by mouth daily. ??? warfarin (COUMADIN) 6 MG tablet Take [...] B Other (see comment) Objective: Filed Vitals: 03/18/22 1142 03/18/22 1238 BP: (!) 87/58 (!) 85/55 Pulse: 112 Resp: 16 Temp: 97.3 ??F (36.3 ??C) TempSrc: Temporal SpO2: 98% Weight: 76.4 kg (168 lb 8 oz) Height: 5' 5 (1.651 m) Physical Exam Vitals and nursing note reviewed. Constitutional: General: She is not in acute distress. Comments: Similar to previous HENT: Head: Normocephalic and atraumatic. Right Ear: External ear normal. Left Ear: External ear normal. Eyes: General: No scleral icterus. Conjunctiva/sclera: Conjunctivae normal. Cardiovascular: Rate and Rhythm: Tachycardia present. Rhythm irregular. Heart sounds: Normal heart sounds. [...] warm and dry. Findings: No rash. Neurological: General: No focal deficit present. Mental Status: She is alert. Psychiatric: Mood and Affect: Mood and affect normal. ECG Review/Interpret Only Date/Time: 03/18/2022 1:51 PM Performed by: Sanjeev Montez DO Authorized by: Sanjeev Montez DO Comparison: compared with previous ECG from 10/30/2021 Comparison to previous ECG: PAC's more frequent, LBBB on previous exam Rhythm: sinus rhythm Ectopy: atrial premature contractions Rate: normal QRS axis: normal Conduction: left bundle branch block ST Segments: ST segments normal T Waves: T waves normal Other: no other findings Clinical impression: abnormal ECG Office Visit on 03/18/2022 Component Date Value Ref Range Status ??? PROTIME WHOLE BLOOD 03/18/2022 1.7 Final ??? INR WHOLE BLOOD 03/18/2022 1.70 Final ??? CORONAVIRUS ANTIGEN IA 03/18/2022 NEGATIVE NEGATIVE Final ??? INFLUENZA A 03/18/2022 NEGATIVE NEGATIVE Final ??? INFLUENZA B 03/18/2022 NEGATIVE NEGATIVE Final ??? Internal Control: 03/18/2022 VALID VALID Final Assessment & Plan: Radha was seen today for dizziness. Diagnoses and all orders for this visit: Hypotension, unspecified hypotension type - ECG Review/Interpret Only Tachycardia, unspecified - ELECTROCARDIOGRAM (NON MIDMARK ACQUIRED) - CORONAVIRUS (COVID-19) INFLUENZA A & B ANTIGEN IA PANEL - ECG Review/Interpret Only Dizziness - CORONAVIRUS (COVID 19) PCR; Future - Cancel: CORONAVIRUS (COVID-19) ANTIGEN BINAX NOW ONLY - Cancel: INFLUENZA A & B - CORONAVIRUS (COVID-19) INFLUENZA A & B ANTIGEN IA PANEL - ECG Review/Interpret Only Chronic anticoagulation - PROTIME/INR, FINGERSTICK Other chronic pain - HYDROcodone-acetaminophen (NORCO) 10-325 MG tablet; Take 1 tablet by mouth every 6 (six) hours asneeded for Pain. Indications: Chronic Pain Do not take with alprazolam. Secondary hyperparathyroidism (CMS/HCC) Graves disease Current mild episode of major depressive disorder without prior episode (CMS/HCC) Discussion/Summary: Discussed findings with patient and friend in office today. Given concern for hypotension, current symptoms, and EKG changes, will send patient to emergency room for further evaluation. We will also have staff relay information to patient's cardiology office; suspect patient will require additionaldiagnostics including echo and heart monitor. Will likely need change in warfarin, but will defer today due to ER visit. Continue current meds for hyperthyroidism, likely Graves, and hyperparathyroidism. F/u with endocrine as scheduled. Pt has historical noncompliance with following up with recommended specialists. Will change depression medications in future. Will have pt f/u in 2 weeks at minimum and sooner depending upon results of ER evaluation. Pt and friend v/u. Outside of EKG interpretation, I spent 63 minutes today reviewing the patient's medical record, obtaining history, performing an exam, ordering medications, tests, and/or procedures, documenting in the medical record, referring and/or communicating with other health care providers, counseling and educating the patient and friend, reviewing and communicating test results and coordinating care. Sanjeev Montez, MING OPERATOR documented in this encounter Plan of Treatment Upcoming Encounters Date Type Department Care Team (Late st Contact Info) Description 04/14/2024 2:00 PM TRIMMING OPERATOR Office Visit [facility] Multispecialty Care - [facility] [address] [facility], [address] [place] [address] Julio Pulido MD [address] [place] [address] documented as of this encounter Goals Goal Patient Goal Type Associated Problems Recent Progress Patient-Stated? Author Health - patient able to perform ADLs independently General On track(2023 9:49 AM CDT) Dianne Corona, RN Note: 12/17/23: Patient stated she is independent with ASL's. Establish Plan for Symptom Monitoring-CHF General On track(2023 11:36 AM TRIMMING OPERATOR) Dianne Corona, RN Note: Patient will [...] Symptom Monitoring-COPD General On track(2023 11:36 AM TRIMMING OPERATOR) Dianne Corona, RN Note: Patient will [...] Symptom Monitoring-DM General On track(2023 4:33 PM TRIMMING OPERATOR) Dianne Corona RN Note: Patient will [...] Symptom Monitoring-HTN General On track(2023 4:33 PM TRIMMING OPERATOR) Dianne Corona, DALE Note: Patient will monitor B/P several times per week , record readings and report to physician or CC if B/P consistently >130/80 Take your medications as prescribed. Follow up with your provider as scheduled. Take your blood pressure at least several times a week if able. documented as of this encounter Procedures Procedure Name Priority Date/Time Associated Diagnosis Comments EVENT RECORDER (ECG) UP TO 30 DAYS REVIEW/INTERP Routine 03/18/2022 1:51 PM TRIMMING OPERATOR Hypotension, unspecified hypotension type Tachycardia, unspecified Dizziness ELECTROCARDIOGRAM (NON MIDMARK ACQUIRED) Routine 03/18/2022 12:16 PM TRIMMING OPERATOR Tachycardia, unspecified CORONAVIRUS (COVID-19) INFLUENZA A & B ANTIGEN IA PANEL Routine 03/18/2022 Tachycardia, unspecified Dizziness PROTHROMBIN TIME, FINGERSTICK Routine 03/18/2022 Chronic anticoagulation documented in this encounter Results * ECG Review/Interpret Only (03/18/2022 1:51 PM TRIMMING OPERATOR) Sanjeev Bergman DO - 03/18/2022 1:51 PM TRIMMING OPERATOR Sanjeev Montez, ? 03/18/2022 ??2:00 PM ECG Review/Interpret Only Date/Time: 03/18/2022 1:51 PM Performed by: Sanjeev Montez DO Authorized by: Sanjeev Montez DO Comparison: compared with previous ECG from 10/30/2021 Comparison to previous ECG: PAC's more frequent, LBBB on previous exam Rhythm: sinus rhythm Ectopy: atrial premature contractions Rate: normal QRS axis: normal Conduction: left bundle branch block ST Segments: ST segments normal T Waves: T waves normal Other: no other findings Clinical impression: abnormal ECG us Sanjeev Montez DO ECG ORDERABLES Final Re sult * CORONAVIRUS (COVID 19) PCR (03/18/2022 12:50 PM TRIMMING OPERATOR) SPEC DESCRIPTION NASAL 03/18/19 7:18 PM TRIMMING OPERATOR [facility] CORONAVIRUS SARS COV 2 PCR (RESP) NEGATIVE NEGATIVE 03/19/2022 1:58 PM [facility] Comment: THE SARS-CoV-2 TEST HAS BEEN AUTHORIZED BY THE FDA UNDER AN EUA FOR USE BY AUTHORIZED LABORATORIES. PERFORMED BY NUCLEIC ACID AMPLIFICATION PCR FIRST TEST YES 03/18/2022 7:18 PM [facility] EMPLOYED IN HEALTHCARE NO 03/18/2022 7:18 PM [facility] SYMPTOMATIC DEFINED BY CDC YES 03/18/2022 7:18 PM [facility] DATE OF SYMPTOM ONSET [id number] 03/18/2022 7:18 PM [facility] HOSPITALIZATION STATUS NO 03/18/2022 7:18 PM TRIMMING OPERATOR [facility] PATIENT IN ICU NO 03/18/2022 7:18 PM TRIMMING OPERATOR [facility] RESIDENT OF [facility] NO 03/18/2022 7:18 PM TRIMMING OPERATOR [facility] NASOPHARYNGEAL SWAB / Unknown 03/18/2022 12:50 PM TRIMMING OPERATOR Sanjeev Montez DO MICROBIOLOGY - GENERAL O RDERABLES Final Result [facility] [address] [place] [employer] [place] [address], * ELECTROCARDIOGRAM (NON MIDMARK ACQUIRED) (03/18/2022 12:16 PM TRIMMING OPERATOR) 03/18/2022 12:1 6 PM TRIMMING OPERATOR Narrative [facility] - 03/18/2022 1:09 PM TRIMMING OPERATOR ?[facility] ?[address] [place] [address] ? Test Date: ?2022-03-18 Pat Name: ? RADHA BOBO ?Department: ?? 171 ? Room: ? Gender: ? Female ? Cna Instructor: ?? : ?1945 ? Requested By: SANJEEV MONTEZ Order Number: [id number] ?Reading MD: ?? Sanjeev Montez ? Measurements Intervals ?Taylor ? Rate: ? 75 ? P: ?-46 SD: ? 190 ?QRS: ?-17 QRSD: ? 150 ?T: ?124 QT: ? 424 ? QTc: ?474 ? Interpretive Statements SINUS RHYTHM WITH FREQUENT PACs LEFT BUNDLE BRANCH BLOCK, noted on previous EKG I reviewed and agree with the above findings. Sanjeev Montez DO MING OPERATOR Procedure Note Sanjeev Montez DO - 03/18/2022 [facility] [address] [place] [address] Test Date: 2022-03-18 Pat Name: RADHA BOBO Department: 171 Room: Gender: Female Cna Instructor: : 1945 Requested By: SANJEEV MONTEZ Order Number: [id number] Reading MD: Sanjeev Montez Measurements Intervals Taylor Rate: 75 P: -46 SD: 190 QRS: -17 QRSD: 150 T: 124 QT: 424 QTc: 474 Interpretive Statements SINUS RHYTHM WITH FREQUENT PACs LEFT BUNDLE BRANCH BLOCK, noted on previous EKG I reviewed and agree with the above findings. Sanjeev Montez DO MING OPERATOR Sanjeev Montez DO PROCEDURES-ORDERABLE NO CHARGE Final Result Performing Organization Address [facility] Co de Phone Number [facility] * CORONAVIRUS (COVID-19) INFLUENZA A & B ANTIGEN IA PANEL (03/18/2022) CORONAVIRUS ANTIGEN IA NEGATIVE NEGATIVE [facility] INFLUENZA A NEGATIVE NEGATIVE [facility] INFLUENZA B NEGATIVE NEGATIVE [facility] Internal Control: VALID VALID [facility] NASAL STRUCTURE / Unknown 03/18/2022 Sanjeev Montez DO MICROBIOLOGY - GENERAL O RDERABLES Final Result Performing Organization Address [facility] [place] [place] [address], [place] * PROTIME/INR, FINGERSTICK (03/18/2022) PROTIME WHOLE BLOOD 1.7 [facility] INR WHOLE BLOOD 1.70 [facility] 03/18/2022 Sanjeev Montez DO LABORATORY Final Re sult Performing Organization Address [facility] Co de Phone Number [address] [address], documented in this encounter Visit Diagnoses Diagnosis Hypotension, unspecified hypotension type- Primary Tachycardia, unspecified Dizziness Dizziness and giddiness Chronic anticoagulation Encounter for long-term (current) use of anticoagulants Other chronic pain Secondary hyperparathyroidism (CMS/HCC HHS/HCC) Secondary hyperparathyroidism (of renal origin) Graves disease Toxic diffuse goiter without mention of thyrotoxic crisis or storm Current mild episode of major depressive disorder without prior episode (CMS/HCC) documented in this encounter Additional Health Concerns Infection Onset Date Last Indicated Resolved Time COVID-19 Rule Out 03/18/2022 03/18/2022 03/18/2022 12:27 PM TRIMMING OPERATOR COVID-19 Rule Out 03/18/2022 03/18/2022 03/18/2022 12:57 PM TRIMMING OPERATOR Assessment Noted Time PHQ-9 Depression Total Score: 3 12/24/19 22 11:48 AM CDT documented as of this encounter Care Teams Termite Control Technician Relationship Specialty Start Date End Date Sanjeev Montez DO [address] [place] [address] PCP - General FAMILY PRACTICE 09/25/20 Dianne Johnson, RN [address] [place], [place] [address] Electrician Underground (Ambulatory) REGISTERED NURSE 08/14/20 documented as of this encounter
--- OUTSIDE RECORDS SUMMARY | 2024-03-15 01:01 | XMS_ITS | Encounter Summary ---
Author Organization [facility] Address [facility] [place] [address] [place] [address] Care Team Providers Care Juke Box Mechanic Name Role Phone Dianne Johnson RN Unavailable [phone] Sanjeev Webster DO Primary Care Provider + Encounter Details Date Type Department Care Team (Latest Contact Info) Description 03/31/2022 Travel Social History Tobacco Use Types Packs/Day [...] Coronavirus/COVID-19? No / Unsure 03/31/2022 10:01 AM DIGITAL MARKETING PROGRAM MANAGER documented as of this encounter Functional Status [...] st Contact Info) Description 04/14/2024 2:00 PM DIGITAL MARKETING PROGRAM MANAGER Office Visit [facility] Multispecialty Care - [facility] [address] [facility], [address] [place] [id number] Julio Pulido MD [address] [place] [address] documented as of this encounter Goals Goal Patient Goal Type Associated Problems Recent Progress Patient-Stated? Author Health - patient able to perform ADLs independently General On track(2023 9:49 AM CDT) No Dianne Johnson, RN Note: 12/17/23: Patient stated she is independent with ASL's. Establish Plan for Symptom Monitoring-CHF General On track(2023 11:36 AM DIGITAL MARKETING PROGRAM MANAGER) Dianne Corona, RN Note: Patient will [...] Symptom Monitoring-COPD General On track(2023 11:36 AM DIGITAL MARKETING PROGRAM MANAGER) Dianne Corona RN Note: Patient will [...] Symptom Monitoring-DM General On track(2023 4:33 PM DIGITAL MARKETING PROGRAM MANAGER) Dianne Corona, DALE Note: Patient will manage [...] Symptom Monitoring-HTN General On track(2023 4:33 PM DIGITAL MARKETING PROGRAM MANAGER) Dianne Corona RN Note: Patient will [...] documented as of this encounter Care Teams Juke Box Mechanic Relationship Specialty Start Date End Date Sanjeev Webster DO [address] [place] [address] PCP - General FAMILY PRACTICE 09/25/20 Dianne Johnson, RN [address] [place] [address] Pharmacist Hospital (Ambulatory) REGISTERED NURSE 08/14/20 documented as of this encounter
--- OUTSIDE RECORDS SUMMARY | 2024-03-15 01:01 | XMS_ITS | Encounter Summary ---
Author Organization [facility] Address [address] [place] [address]. [place], [place] [address] [place] [address] Care Team Providers Care Appointment Setter Name Role Phone Dianne Johnson RN Unavailable [phone] Sanjeev Webster DO Primary Care Provider + Reason for Visit * Reason Onset Date Comments Medication Reconciliation 03/21/2022 Encounter Details Date Type Department Care Team (Late st Contact Info) Description 03/21/2022 Telephone [facility] Family & Internal Medicine [id number] [place] [address] Sanjeev Webster DO [address] [place] [address] Medication Reconciliation Social History Tobacco Use Types Packs/Day Years [...] Coronavirus/COVID-19? No / Unsure 03/18/2022 11:37 AM WEATHER FORECASTER documented as of this encounter Functional Status [...] documented in this encounter Progress Notes * Theodore Dail RN - 03/21/2022 3:53 PM CSTAddended by: THEODORE DIAL on: 03/21/2022 03:53 PM Modules accepted: Orders HER FORECASTER * Theodore Dial RN - 03/21/2022 3:52 PM CST Spoke with daughter in law Izzy to make aware of below, she voiced understanding, med list updated. HER FORECASTER * Sanjeev Webster DO - 03/21/2022 3:39 PM CST Recommend alprazolam once daily; she can't mix this with her pain medicine either. OK to remove fluticasone and lidocaine patches. Tylenol is fine, no more than 2500 mg daily. HER FORECASTER * Theodore Dial RN - 03/21/2022 3:23 PM CST received call back from daughter in law Izzy reported she checked on a few medication to see if patient was taking and wanted to let pcp/CC know. Patient is taking her tylenol and xanax as needed, daughter in law stated she does need her xanax most days twice daily. Patient is not taking fluticasone denies any issues with allergies, and is not using currently using any lidocaine patches. HER FORECASTER documented in this encounter Plan of Treatment Upcoming Encounters Date Type Department Care Team (Late st Contact Info) Description 04/14/2024 2:00 PM WEATHER FORECASTER Office Visit [facility] Multispecialty Care - [facility] [address] [facility], [address] [place] [phone] Julio Pulido MD [address] [place] [address] documented as of this encounter Goals Goal Patient Goal Type Associated Problems Recent Progress Patient-Stated? Author Health - patient able to perform ADLs independently General On track(2023 9:49 AM CDT) No Dianne Johnson RN Note: 12/17/23: Patient stated she is independent with ASL's. Establish Plan for Symptom Monitoring-CHF General On track(2023 11:36 AM WEATHER FORECASTER) Dianne Corona RN Note: Patient will recognize [...] Symptom Monitoring-COPD General On track(2023 11:36 AM WEATHER FORECASTER) Dianne Corona RN Note: Patient will recognize [...] Symptom Monitoring-DM General On track(2023 4:33 PM WEATHER FORECASTER) Dianne Corona RN Note: Patient will manage [...] Symptom Monitoring-HTN General On track(2023 4:33 PM WEATHER FORECASTER) Dianne Corona RN Note: Patient will monitor [...] documented as of this encounter Care Teams Appointment Setter Relationship Specialty Start Date End Date Sanjeev Webster DO [address] [place] [id number] PCP - General FAMILY PRACTICE 09/25/20 Dianne Johnson, RN [address] [place], [place] [address] Die Finisher (Ambulatory) REGISTERED NURSE 08/14/20 documented as of this encounter
--- OUTSIDE RECORDS SUMMARY | 2024-03-15 01:01 | XMS_ITS | Encounter Summary ---
Author Organization [facility] Address [address] [place] [address]. [place] [address] [place] [address] Care Team Providers Care Plaster And Stucco Worker Name Role Phone Dianne Johnson RN Unavailable [phone] Sanjeev Webster DO Primary Care Provider + Reason for Visit * Reason Comments Lab (SCAN) Image (SCAN) ECG (SCAN) Encounter Details Date Type Department Care Team (Late st Contact Info) Description 03/18/2022 Scan HEALTH INFO SRVCS Scanned, Doc Med Group Lab (SCAN); Image (SCAN); ECG (SCAN) Social History Tobacco Use Types Packs/Day [...] Coronavirus/COVID-19? No / Unsure 03/25/2022 10:46 AM PACK PULLER documented as of this encounter Functional Status [...] st Contact Info) Description 04/14/2024 2:00 PM PACK PULLER Office Visit [facility] Mult[facility]pecialty Care - [facility] [address] [facility], [address] [place] [phone] Julio Pulido MD [address] [place] [address] documented as of this encounter Goals Goal Patient Goal Type Associated Problems Recent Progress Patient-Stated? Author Health - patient able to perform ADLs independently General On track(2023 9:49 AM CDT) Dianne Corona, RN Note: 12/17/23: Patient stated she is independent with ASL's. Establish Plan for Symptom Monitoring-CHF General On track(2023 11:36 AM PACK PULLER) Dianne Corona RN Note: Patient will recognize [...] Symptom Monitoring-COPD General On track(2023 11:36 AM PACK PULLER) Dianne Corona RN Note: Patient will recognize [...] Symptom Monitoring-DM General On track(2023 4:33 PM PACK PULLER) Dianne Corona RN Note: Patient will manage [...] Symptom Monitoring-HTN General On track(2023 4:33 PM PACK PULLER) No Johnson, Dianne R, RN Note: Patient [...] Associated Diagnosis Comments ECG GENERIC (SCAN ORDER) 03/18/2022 OUTSIDE PT/INR (SCAN ORDER) 03/18/2022 OUTSIDE PT/INR (SCAN ORDER) 03/18/2022 OUTSIDE LAB (SCAN ORDER) 03/18/2022 OUTSIDE LAB (SCAN ORDER) 03/18/2022 OUTSIDE LAB (SCAN ORDER) 03/18/2022 IMAGE GENERIC 03/18/2022 IMAGE GENERIC 03/18/2022 documented in this encounter Results * OUTSIDE PT/INR (SCAN) (03/18/2022) 03/18/2022 [facility] Scanned SCANNING Final Resu lt * OUTSIDE LAB (SCAN) (03/18/2022) 03/18/2022 [facility] Scanned SCANNING Final Resu lt * OUTSIDE LAB (SCAN) (03/18/2022) 03/18/2022 [facility] Scanned SCANNING Final Resu lt * OUTSIDE LAB (SCAN) (03/18/2022) 03/18/2022 [facility] Scanned SCANNING Final Resu lt * OUTSIDE PT/INR (SCAN) (03/18/2022) 03/18/2022 [facility] Scanned SCANNING Final Resu lt * IMAGE GENERIC (03/18/2022) Anatomical Region Laterality Modality Other 03/18/2022 [facility] Scanned SCANNING Final Resu lt * IMAGE GENERIC (03/18/2022) Anatomical Region Laterality Modality Other 03/18/2022 [facility] Scanned SCANNING Final Resu lt * ECG GENERIC (03/18/2022) 03/18/2022 [facility] Scanned SCANNING Final Resu lt documented in this encounter Visit Diagnoses Not on filedocumented in this encounter Additional Health Concerns Infection Onset Date Last Indicated Resolved Time COVID-19 Rule Out 03/18/2022 03/18/2022 03/18/2022 12:27 PM PACK PULLER COVID-19 Rule Out 03/18/2022 03/18/2022 03/18/2022 12:57 PM PACK PULLER COVID-19 Rule Out 03/18/2022 03/18/2022 03/19/2022 1:58 PM PACK PULLER Assessment Noted Time PHQ-9 Depression Total Score: 3 12/24/19 22 11:48 AM CDT documented as of this encounter Care Teams Plaster And Stucco Worker Relationship Specialty Start Date End Date Sanjeev Webster DO [address] [place] [address] PCP - General FAMILY PRACTICE 09/25/20 Dianne Johnson, RN [address] [place] [address] Natural Gas Plant Supervisor (Ambulatory) REGISTERED NURSE 08/14/20 documented as of this encounter
--- OUTSIDE RECORDS SUMMARY | 2024-03-15 01:01 | XMS_ITS | Encounter Summary ---
Author Organization [facility] Address [facility] [place] [address] [place] [address] Care Team Providers Care Manager Relationship Name Role Phone Dianne Johnson RN Unavailable [phone] Sanjeev Webster DO Primary Care Provider + Encounter Details Date Type Department Care Team (Latest Contact Info) Description 03/07/2022 Travel Social History Tobacco Use Types Packs/Day [...] suspected to have Coronavirus/COVID-19? No / Unsure 03/07/2022 1:33 PM MEDICAL DETAILIST documented as of this encounter Functional Status [...] Contact Info) Description 04/14/2024 2:00 PM MEDICAL DETAILIST Office Visit [facility] Multispecialty Care - [facility] [address] [facility], [address] [place] [phone] Julio Pulido MD 3 [place] [address] documented as of this encounter Goals Goal Patient Goal Type Associated Problems Recent Progress Patient-Stated? Author Health - patient able to perform ADLs independently General On track(2023 9:49 AM CDT) No Dianne Johnson, RN Note: 12/17/23: Patient stated she is independent with ASL's. Establish Plan for Symptom Monitoring-CHF General On track(2023 11:36 AM MEDICAL DETAILIST) Dianne Corona, RN Note: Patient will recognize [...] Monitoring-COPD General On track(2023 11:36 AM MEDICAL DETAILIST) Dianne Corona RN Note: Patient will recognize [...] Monitoring-DM General On track(2023 4:33 PM MEDICAL DETAILIST) Dianne Corona, DALE Note: Patient will manage [...] Monitoring-HTN General On track(2023 4:33 PM MEDICAL DETAILIST) Dianne Corona RN Note: Patient will monitor [...] as of this encounter Care Teams Manager Relationship Relationship Specialty Start Date End Date Sanjeev Webster DO [address] [place] [address] PCP - General FAMILY PRACTICE 09/25/20 Dianne Johnson, RN [address] [place] [address] Analytical Lab Analyst (Ambulatory) REGISTERED NURSE 08/14/20 documented as of this encounter
--- OUTSIDE RECORDS SUMMARY | 2024-03-15 01:01 | XMS_ITS | Encounter Summary ---
Author Organization [facility] Address [facility] [facility] [place] [address] [place] [address] Care Team Providers Care Overnight Cashier Name Role Phone Dianne Johnson RN Unavailable [phone] Sanjeev Webster DO Primary Care Provider + Reason for Visit * Reason Onset Date Comments Care Management 04/07/2022 Encounter Details Date Type Department Care Team (Late st Contact Info) Description 04/07/2022 Patient Outreach [facility] Family Medicine - [place] [address] [facility], [address] [place] [address] Bebe Dan, DUSTER TENDER [address] [place] [address] Care Management Social History Tobacco [...] heating? Hard 04/03/2022 PHQ-2 Answer Date Recorded PHQ-2 Score - If the patient scores above 3, please move on to questions 3-9 1 01/07/2022 Hunger Vital Sign Answer Date Recorded Within [...] slept in a detention (including now)? No 04/03/2022 Comments No Sex [...] Coronavirus/COVID-19? No / Unsure 04/08/2022 2:14 PM ROLL FILLER documented as of this encounter Functional Status [...] documented in this encounter Progress Notes * SCOTT Hill - 04/07/2022 12:45 PM CST Contacted pt in regards to referral for assistance with Medical Bills and Utility assistance. Recruiting Associate has placed Financial Assistance application from [facility] in the mail for pt to complete.Recruiting Associate went over instructions for pt on how to complete. Pt voiced understanding. Also provided contact info for [employer] program for assistance with utilities if pt qualifies. Encouraged pt to call fha underwriter any time with any other questions or concerns. Chronic Care Management- Time Spent with Patient Time spent with patient (minutes): 7 Time spent performing chart review (minutes): 7 Total time (minutes): 14 I reviewed the patient's status and education provided by SCOTT Hill. I agree with the findings and recommendations made. Cosigned by Sanjeev Webtser DO at 04/15/2022 3:51 PM ROLL FILLER FILLER FILLER documented in this encounter Plan of Treatment Upcoming Encounters Date Type Department Care Team (Late st Contact Info) Description 04/14/2024 2:00 PM ROLL FILLER Office Visit [facility] Medical Group Multispecialty Care - [address], [address] [place] [address] Julio Pulido MD 3 [place] [address] documented as of this encounter Goals Goal Patient Goal Type Associated Problems Recent Progress Patient-Stated? Author Health - patient able to perform ADLs independently General On track(2023 9:49 AM CDT) Dianne Corona RN Note: 12/17/23: Patient stated she is independent with ASL's. Establish Plan for Symptom Monitoring-CHF General On track(2023 11:36 AM ROLL FILLER) Dianne Corona RN Note: Patient will recognize [...] Symptom Monitoring-COPD General On track(2023 11:36 AM ROLL FILLER) Dianne Corona RN Note: Patient will recognize [...] Symptom Monitoring-DM General On track(2023 4:33 PM ROLL FILLER) Dianne Corona RN Note: Patient will manage [...] Symptom Monitoring-HTN General On track(2023 4:33 PM ROLL FILLER) Dianne Corona RN Note: Patient will monitor B/P several times per week , record readings and report to physician or CC if B/P consistently >130/80 Take your medications as prescribed. Follow up with your provider as scheduled. Take your blood pressure at least several times a week if able. documented as of this encounter Visit Diagnoses Diagnosis Type 2 diabetes mellitus ([facility])- Primary Type II or unspecified type diabetes mellitus without mention of complication, not stated as uncontrolled COPD (chronic obstructive pulmonary disease) ([facility]) Chronic airway obstruction, not elsewhere classified documented in this encounter Additional Health Concerns Assessment Noted Time PHQ-9 Depression Total Score: 3 12/24/19 22 11:48 AM CDT documented as of this encounter Care Teams Overnight Cashier Relationship Specialty Start Date End Date Sanjeev Webster DO [address] [place] [address] PCP - General FAMILY PRACTICE 09/25/20 Dianne Johnson RN [address] [place] [address] Pump And Still Operator (Ambulatory) REGISTERED NURSE 08/14/20 documented as of this encounter
--- OUTSIDE RECORDS SUMMARY | 2024-03-15 01:01 | XMS_ITS | Encounter Summary ---
Author Organization [facility] Address [facility] [facility] [place] [address] [place] [address] Care Team Providers Care Layout Mechanic Name Role Phone Dianne Johnson RN Unavailable [phone] Sanjeev Webster DO Primary Care Provider + Reason for Visit * Reason Comments Lab (SCAN) Encounter Details Date Type Department Care Team (Latest Contact Info) Description 03/19/2022 Scan HEALTH INFO SRVCS Scanned, Doc Med [...] Coronavirus/COVID-19? No / Unsure 03/25/2022 10:46 AM STORE DIRECTOR documented as of this encounter Functional [...] st Contact Info) Description 04/14/2024 2:00 PM STORE DIRECTOR Office Visit [facility] Multispecialty Care - [facility] [address] [facility], [address] [place] [address] Julio Pulido MD 3 [place] [address] documented as of this encounter Goals Goal Patient Goal Type Associated Problems Recent Progress Patient-Stated? Author Health - patient able to perform ADLs independently General On track(2023 9:49 AM CDT) No Dianne Johnson, RN Note: 12/17/23: Patient stated she is independent with ASL's. Establish Plan for Symptom Monitoring-CHF General On track(2023 11:36 AM STORE DIRECTOR) Dianne Corona, RN Note: Patient will [...] Symptom Monitoring-COPD General On track(2023 11:36 AM STORE DIRECTOR) Dianne Corona RN Note: Patient will [...] Symptom Monitoring-DM General On track(2023 4:33 PM STORE DIRECTOR) Dianne Corona RN Note: Patient will [...] Symptom Monitoring-HTN General On track(2023 4:33 PM STORE DIRECTOR) Dianne Corona RN Note: Patient will monitor [...] Associated Diagnosis Comments OUTSIDE LAB (SCAN ORDER) 03/19/2022 documented in this encounter Results * OUTSIDE LAB (SCAN) (03/19/2022) 03/19/2022 [facility] Scanned SCANNING Final Resu lt documented in this encounter Visit Diagnoses Not on filedocumented in this encounter Additional Health Concerns Infection Onset Date Last Indicated Resolved Time COVID-19 Rule Out 03/18/2022 03/18/2022 03/19/2022 1:58 PM STORE DIRECTOR Assessment Noted Time PHQ-9 Depression Total Score: 3 12/24/19 22 11:48 AM CDT documented as of this encounter Care Teams Layout Mechanic Relationship Specialty Start Date End Date Sanjeev Webster DO [address] [place] [address] PCP - General FAMILY PRACTICE 09/25/20 Dianne Johnson, RN [address] [place] [address] Mental Health Program Specialist (Ambulatory) REGISTERED NURSE 08/14/20 documented as of this encounter
--- OUTSIDE RECORDS SUMMARY | 2024-03-15 01:01 | XMS_ITS | Encounter Summary ---
Author Organization [facility] Address [facility] [place] [place] [address] [place] [address] Care Team Providers Care Recovery Coach Name Role Phone Dianne Johnson RN Unavailable [phone] Sanjeev Webster DO Primary Care Provider + Reason for Visit * Reason Onset Date Comments Results 03/13/2022 Encounter Details Date Type Department Care Team (Late st Contact Info) Description 03/13/2022 Telephone [facility] Family & Internal Medicine [place] [id number] [place] [address] Sanjeev Webster DO [facility] [place] [address] Results Social History Tobacco Use [...] Coronavirus/COVID-19? No / Unsure 03/07/2022 1:33 PM ORDER CHECKER PACKER PROCESSER documented as of this encounter Functional Status [...] Progress Notes * Scarlett Guerrero MA - 03/13/2022 10:57 AM CST Patient notified and v/u R CHECKER PACKER PROCESSER * Scarlett Guerrero MA - 03/13/2022 10:56 AM CST ----- Message from Sanjeev Webster DO sent at 03/10/2022 9:53 AM ORDER CHECKER PACKER PROCESSER ----- PT/INR is near therapeutic. We will recheck at next OV in one week. R CHECKER PACKER PROCESSER documented in this encounter Plan of Treatment Upcoming Encounters Date Type Department Care Team (Late st Contact Info) Description 04/14/2024 2:00 PM ORDER CHECKER PACKER PROCESSER Office Visit [facility] Multispecialty Care - [facility] [address], [address] [place] [address] Julio Pulido MD 3 [place] [address] documented as of this encounter Goals Goal Patient Goal Type Associated Problems Recent Progress Patient-Stated? Author Health - patient able to perform ADLs independently General On track(2023 9:49 AM CDT) Dianne Corona, DALE Note: 12/17/23: Patient stated she is independent with ASL's. Establish Plan for Symptom Monitoring-CHF General On track(2023 11:36 AM ORDER CHECKER PACKER PROCESSER) Dianne Corona, RN Note: Patient will recognize [...] Symptom Monitoring-COPD General On track(2023 11:36 AM ORDER CHECKER PACKER PROCESSER) Dianne Corona, RN Note: Patient will recognize [...] Symptom Monitoring-DM General On track(2023 4:33 PM ORDER CHECKER PACKER PROCESSER) Dianne Corona RN Note: Patient will manage [...] Symptom Monitoring-HTN General On track(2023 4:33 PM ORDER CHECKER PACKER PROCESSER) Dianne Corona, DALE Note: Patient will monitor [...] documented as of this encounter Care Teams Recovery Coach Relationship Specialty Start Date End Date Sanjeev Webster DO [address] [place] [address] PCP - General FAMILY PRACTICE 09/25/20 Dianne Johnson RN [address] [place] [address] Hat Body Inspector (Ambulatory) REGISTERED NURSE 08/14/20 documented as of this encounter
--- OUTSIDE RECORDS SUMMARY | 2024-03-15 01:01 | XMS_ITS | Encounter Summary ---
Author Organization [facility] Address [facility] [facility] [place] [address] [place] [address] Care Team Providers Care Building Custodial Supervisor Name Role Phone Dianne Johnson RN Unavailable [phone] Sanjeev Webster DO Primary Care Provider + Encounter Details Date Type Department Care Team (Latest Contact Info) Description 03/25/2022 Travel Social History Tobacco Use Types Packs/Day [...] Coronavirus/COVID-19? No / Unsure 03/25/2022 10:46 AM VACUUM DRIER OPERATOR documented as of this encounter Functional [...] st Contact Info) Description 04/14/2024 2:00 PM VACUUM DRIER OPERATOR Office Visit [facility] Multispecialty Care - [facility] [address] [facility], [address] [place] [address] Julio Pulido MD 3 [place] [address] documented as of this encounter Goals Goal Patient Goal Type Associated Problems Recent Progress Patient-Stated? Author Health - patient able to perform ADLs independently General On track(2023 9:49 AM CDT) No Dianne Johnson, RN Note: 12/17/23: Patient stated she is independent with ASL's. Establish Plan for Symptom Monitoring-CHF General On track(2023 11:36 AM VACUUM DRIER OPERATOR) Dianne Corona, RN Note: Patient will [...] Symptom Monitoring-COPD General On track(2023 11:36 AM VACUUM DRIER OPERATOR) Dianne Corona RN Note: Patient will [...] Symptom Monitoring-DM General On track(2023 4:33 PM VACUUM DRIER OPERATOR) Dianne Corona, DALE Note: Patient will manage [...] Symptom Monitoring-HTN General On track(2023 4:33 PM VACUUM DRIER OPERATOR) Dianne Corona RN Note: Patient will [...] documented as of this encounter Care Teams Building Custodial Supervisor Relationship Specialty Start Date End Date Sanjeev Webster DO [address] [place] [address] PCP - General FAMILY PRACTICE 09/25/20 Dianne Johnson, RN [address] [place] [address] Art Education Professor (Ambulatory) REGISTERED NURSE 08/14/20 documented as of this encounter
--- OUTSIDE RECORDS SUMMARY | 2024-03-15 01:01 | XMS_ITS | Encounter Summary ---
Author Organization [facility] Address [facility] [facility] [place] [address] [place] [address] Care Team Providers Care Transcription Specialist Name Role Phone Dianne Johnson RN Unavailable [phone] Sanjeev Webster DO Primary Care Provider + Reason for Visit * Reason Onset Date Comments Results 04/08/2022 Encounter Details Date Type Department Care Team (Late st Contact Info) Description 04/08/2022 Telephone [facility] Medical Group Family & Internal Medicine [place] [address] [place] [address] Sanjeev Webster DO [facility] [place] [address] Results Social History Tobacco Use [...] Coronavirus/COVID-19? No / Unsure 04/08/2022 2:14 PM TESTING COORDINATOR documented as of this encounter Functional Status [...] Progress Notes * Yenifer Ingram MA - 04/08/2022 3:25 PM CST Spoke with Izzy and informed her of dosage changes and when to repeat INR. Izzy v/u. ----- Message from Sanjeev Webster DO sent at 04/08/2022 3:03 PM TESTING COORDINATOR ----- Please contact Izzy for medication changes. Below goal again. Per notes, pt is taking 7 mg daily. If this is correct, increase to 8 mg on Thursday and Thursday and keep 7 mg M-F. Repeat in 1 week. ING COORDINATOR ING COORDINATOR ING COORDINATOR documented in this encounter Plan of Treatment Upcoming Encounters Date Type Department Care Team (Late st Contact Info) Description 04/14/2024 2:00 PM TESTING COORDINATOR Office Visit [facility] Medical Group Multispecialty Care - [facility] [address] [facility], [address] [place] [phone] Julio Pulido MD 3 [place], [place] [phone] documented as of this encounter Goals Goal Patient Goal Type Associated Problems Recent Progress Patient-Stated? Author Health - patient able to perform ADLs independently General On track(2023 9:49 AM CDT) Dianne Corona RN Note: 12/17/23: Patient stated she is independent with ASL's. Establish Plan for Symptom Monitoring-CHF General On track(2023 11:36 AM TESTING COORDINATOR) Dianne Corona RN Note: Patient will [...] Symptom Monitoring-COPD General On track(2023 11:36 AM TESTING COORDINATOR) Dianne Corona RN Note: Patient will [...] Symptom Monitoring-DM General On track(2023 4:33 PM TESTING COORDINATOR) Dianne Corona RN Note: Patient will [...] Symptom Monitoring-HTN General On track(2023 4:33 PM TESTING COORDINATOR) Dianne Corona, RN Note: Patient will [...] documented as of this encounter Care Teams Transcription Specialist Relationship Specialty Start Date End Date Sanjeev Webster DO [address] [place] [address] PCP - General FAMILY PRACTICE 09/25/20 Dianne Johnson, RN [address] [place], [place] [phone] Cracker Off (Ambulatory) REGISTERED NURSE 08/14/20 documented as of this encounter
--- OUTSIDE RECORDS SUMMARY | 2024-03-15 01:01 | XMS_ITS | Encounter Summary ---
Author Organization [facility] - [facility] Address [facility]. [place], [place] [address] [place] [address] Care Team Providers Care Supervisor Picking Crew Name Role Phone Dianne Johnson RN Unavailable [phone] Sanjeev Montez DO Primary Care Provider + Reason for Referral * Consultation (Routine) - Closed Specialty Diagnoses / Procedures Referred By Contivett t Referred To Contact HEART & VASCULAR CARE Diagnoses Tachycardia, unspecified Diastolic heart failure, unspecified HF chronicity (CMS/HCC [facility]) Procedures OFFICE/OUTPT VISIT,NEW,LEVL III OFFICE/OUTPT VISIT,NEW,LEVL IV OFFICE/OUTPT VISIT,NEW,LEVL V OFFICE/OUTPT VISIT,EST,LEVL III OFFICE/OUTPT VISIT,EST,LEVL IV OFFICE/OUTPT VISIT,EST,LEVL V Sanjeev Montez DO [address] [place] [address] Phone: tel: fax: Maurice Paredes MD [address] [address] Phone: tel: fax: Referral ID Status Reason Start Date Expiration Date V isits Requested Visits Authorized [id number] Closed Specialty Services 04/11/2022 11/06/2022 [address]'s name: Dr. Dany Paredes MD Specialty: Cardiology Reason for referral (diagnosis): Z91.89 Phone number: [phone] Fax number: [phone] Insurance: Kristen Appointment: 04/11 NPI # Tax ID # EILLANCE MANAGER Reason for Visit * Reason Onset Date Comments Referral Request 04/11/2022 Encounter Details Date Type Department Care Team (Late st Contact Info) Description 04/11/2022 Telephone [facility] Medical Group Family & Internal Medicine [facility] [address] [place] [phone] Sanjeev Monetz DO [address] [place], [place] [phone] Referral Request Social History Tobacco Use Types Packs/Day [...] Coronavirus/COVID-19? No / Unsure 04/08/2022 2:14 PM SURVEILLANCE MANAGER documented as of this encounter Functional [...] Progress Notes * Yenifer Ingram MA - 04/11/2022 2:27 PM CST Referral placed EILLANCE MANAGER * Adrianne Alford - 04/11/2022 8:01 AM CST The patient called for a referral to the following physician: Dr's name: Dr. Dany Paredes MD Specialty: Cardiology Reason for referral (diagnosis): Z91.89 Phone number: [phone] Fax number: [phone] Insurance: [facility] Appointment: 04/11 NPI # Tax ID # Patient call back #: Last office visit at this office: Last visit with SANJEEV MONTEZ in FAMILY PRACTICE was on: 03/31/2022 in [facility] Future appointment scheduled: Future Appointments Date Time Provider Department Center 05/01/2022 1:00 PM [facility] 05/02/2022 11:00 AM Panda Moreno MD [facility] MANA[facility] documented in this encounter Plan of Treatment Upcoming Encounters Date Type Department Care Team (Late st Contact Info) Description 04/14/2024 2:00 PM SURVEILLANCE MANAGER Office Visit [facility] Medical Group Multispecialty Care - [facility] [address] [facility], [address] [place] [address] Julio Pulido MD [address] [place] [address] Scheduled Referrals Name Type Priority Associated Diagnoses Orde r Schedule Ambulatory referral to Cardiology, Adult (OTHER) Referral Routine Tachycardia, unspecified Diastolic heart failure, unspecified HF chronicity (CMS/HCC [facility]) Ordered: 04/11/2022 documented as of this encounter Goals Goal Patient Goal Type Associated Problems Recent Progress Patient-Stated? Author Health - patient able to perform ADLs independently General On track(2023 9:49 AM CDT) Dianne Corona, RN Note: 12/17/23: Patient stated she is independent with ASL's. Establish Plan for Symptom Monitoring-CHF General On track(2023 11:36 AM SURVEILLANCE MANAGER) Dianne Corona RN Note: Patient will [...] Symptom Monitoring-COPD General On track(2023 11:36 AM SURVEILLANCE MANAGER) Dianne Corona RN Note: Patient will [...] Symptom Monitoring-DM General On track(2023 4:33 PM SURVEILLANCE MANAGER) Dianne Corona RN Note: Patient will [...] Symptom Monitoring-HTN General On track(2023 4:33 PM SURVEILLANCE MANAGER) No Dianne Johnson, RN Note: Patient will monitor B/P several times per week , record readings and report to physician or CC if B/P consistently >130/80 Take your medications as prescribed. Follow up with your provider as scheduled. Take your blood pressure at least several times a week if able. documented as of this encounter Visit Diagnoses Diagnosis Tachycardia, unspecified- Primary Diastolic heart failure, unspecified HF chronicity (CMS/HCC [facility]) documented in this encounter Additional Health Concerns Assessment Noted Time PHQ-9 Depression Total Score: 3 12/24/19 22 11:48 AM CDT documented as of this encounter Care Teams Supervisor Picking Crew Relationship Specialty Start Date End Date Sanjeev Montez DO [address] [place] [address] PCP - General FAMILY PRACTICE 09/25/20 Dianne Johnson, RN [address] [place] [address] Lens Grinder (Ambulatory) REGISTERED NURSE 08/14/20 documented as of this encounter
--- OUTSIDE RECORDS SUMMARY | 2024-03-15 01:01 | XMS_ITS | Encounter Summary ---
Author Organization [facility] Address [address] [facility] [place] [address] [place] [address] Care Team Providers Care Virtualization Engineer Name Role Phone Dianne Johnson RN Unavailable [phone] Sanjeev Webster DO Primary Care Provider + Encounter Details Date Type Department Care Team (Latest Contact Info) Description 04/08/2022 Travel Social History Tobacco Use Types Packs/Day [...] Coronavirus/COVID-19? No / Unsure 04/08/2022 2:14 PM YACHT MASTER documented as of this encounter Functional Status [...] st Contact Info) Description 04/14/2024 2:00 PM YACHT MASTER Office Visit [facility] Medical Group Multispecialty Care - [facility] [address] [facility], [address] [place] [address] Julio Pulido MD [address] [place] [address] documented as of this encounter Goals Goal Patient Goal Type Associated Problems Recent Progress Patient-Stated? Author Health - patient able to perform ADLs independently General On track(2023 9:49 AM CDT) Dianne Corona, RN Note: 12/17/23: Patient stated she is independent with ASL's. Establish Plan for Symptom Monitoring-CHF General On track(2023 11:36 AM YACHT MASTER) Dianne Corona, RN Note: Patient will recognize [...] Symptom Monitoring-COPD General On track(2023 11:36 AM YACHT MASTER) Dianne Corona, RN Note: Patient will recognize [...] Symptom Monitoring-DM General On track(2023 4:33 PM YACHT MASTER) Dianne Corona RN Note: Patient will manage [...] Symptom Monitoring-HTN General On track(2023 4:33 PM YACHT MASTER) Dianne Corona, RN Note: Patient will monitor [...] documented as of this encounter Care Teams Virtualization Engineer Relationship Specialty Start Date End Date Sanjeev Webster DO [address] [place] [address] PCP - General FAMILY PRACTICE 09/25/20 Dianne Johnson RN [address] [place] [address] Airplane Gas Tank Liner Assembler (Ambulatory) REGISTERED NURSE 08/14/20 documented as of this encounter
--- OUTSIDE RECORDS SUMMARY | 2024-03-15 01:01 | XMS_ITS | Encounter Summary ---
Author Organization [facility] Address [facility] [place] [address] [place] [address] Care Team Providers Care Billing Assistant Name Role Phone Dianne Johnson RN Unavailable [phone] Sanjeev Webster DO Primary Care Provider + Reason for Visit * Reason Onset Date Comments Follow Up Call 03/20/2022 Encounter Details Date Type Department Care Team (Late st Contact Info) Description 03/20/2022 Telephone [facility] Medical Group Family & Internal Medicine [id number] [place] [address] Sanjeev Webster DO [facility] [place] [address] Follow Up Call Social History [...] Coronavirus/COVID-19? No / Unsure 03/18/2022 11:37 AM CRYSTAL ATTACHER documented as of this encounter Functional Status [...] Progress Notes * Sanjeev Webster DO - 03/20/2022 1:12 PM CST 1. Can change to TCM appointment; I am not here next week so I can't see her any sooner. 2. Can repeat next Thursday. 3. Noted. 4. Monitor for now; will discuss at OV. 5. Agree with recommendations. TAL ATTACHER * Dianne Johnson RN - 03/20/2022 11:05 AM CST D/C from [facility] on 03/19/22. TCM call completed, awaiting for Izzy ([id number]) to return phone call to reconcile medications and appointment with on 03/31/22. Please address the followin. Appointment with on 03/31/22. Can this be changed to a TCM appointment or can she be seen sooner for a TCM appointment? 2. D/C from hospital with Cefdinir for UTI. Patient taking Warfarin. Educated on Cefdinir and Warfarin can increase risk for bleeding. Watch for s/s of bleeding. INR on 03/19/22 at [facility] was 1.8. When does want to repeat INR? 3. Medical records from [facility] faxed to yesterday along with lab results. Defer future lab to PCP. 4. Bilateral cramps from knee's to feet on and off. She's requesting 's recommendations. Of note, according to medication list patient is taking rosuvastatin 5 mg at bedtime. 5. FYI: Encouraged importance of checking B/P at home, recording readings and bringing B/P readingsto upcoming appointment on 03/31/22 at 10:40 am. Unable to get B/P monitor to work. She will try again and if able will bring B/P readings. Thank you, Blanca TAL ATTACHER documented in this encounter Plan of Treatment Upcoming Encounters Date Type Department Care Team (Late st Contact Info) Description 04/14/2024 2:00 PM CRYSTAL ATTACHER Office Visit [facility] Medical Group Multispecialty Care - [facility] [address] [facility], [address] [place] [phone] Julio Pulido MD [address] [place] [address] documented as of this encounter Goals Goal Patient Goal Type Associated Problems Recent Progress Patient-Stated? Author Health - patient able to perform ADLs independently General On track(2023 9:49 AM CDT) No Dianne Johnson, RN Note: 12/17/23: Patient stated she is independent with ASL's. Establish Plan for Symptom Monitoring-CHF General On track(2023 11:36 AM CRYSTAL ATTACHER) Dianne Corona RN Note: Patient will recognize [...] Symptom Monitoring-COPD General On track(2023 11:36 AM CRYSTAL ATTACHER) Dianne Corona RN Note: Patient will recognize [...] Symptom Monitoring-DM General On track(2023 4:33 PM CRYSTAL ATTACHER) Dianne Corona RN Note: Patient will manage [...] Symptom Monitoring-HTN General On track(2023 4:33 PM CRYSTAL ATTACHER) No Dianne Johnson, RN Note: Patient will [...] as of this encounter Care Teams Billing Assistant Relationship Specialty Start Date End Date Sanjeev Webster DO [address] [place] [address] PCP - General FAMILY PRACTICE 09/25/20 Dianne Johnson, RN [address] [place] [address] Machine Engraver (Ambulatory) REGISTERED NURSE 08/14/20 documented as of this encounter
--- OUTSIDE RECORDS SUMMARY | 2024-03-15 01:01 | XMS_ITS | Encounter Summary ---
Author Organization [facility] Address [facility] [facility] [place] [address] [place] [address] Care Team Providers Care Financial Services Technician Name Role Phone Dianne Johnson RN Unavailable [phone] Sanjeev Webster DO Primary Care Provider + Encounter Details Date Type Department Care Team (Latest Contact Info) Description 03/18/2022 - 03/18/2022 11:59 PM ACCOUNT EXECUTIVE Hospital Encounter [facility] [address] [place] [address] Sanjeev Webster DO [address] [place] [address] Discharge Disposition: Home or Self [...] Coronavirus/COVID-19? No / Unsure 03/18/2022 11:37 AM ACCOUNT EXECUTIVE documented as of this encounter Functional Status [...] ronic obstructive pulmonary disease, unspecified COPD type ([facility]/HCC [facility]) Inhale 2 puffs into the lungs every 6 (six) hours as needed for Wheezing. 18 g 1 10/10/2021 3 ALPRAZolam (XANAX) 0.25 MG tabletIndications:Anx iety Take 1 tablet by mouth twice daily as needed for anxiety 30 tablet 03/13/2022 3 FEROSUL 325 (65 Fe) MG tabletIndications:Iro n deficiency anemia, unspecified iron deficiency anemia type Take 1 tablet by mouth once daily 90 tablet 02/07/2022 3 fluticasone propionate 50 MCG/ACT nasal spray 2 sprays by Nasal route daily. 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 180 capsule 01/16/2022 3 HYDROcodone-acetamino phen (NORCO) 10-325 MG tabletIndications:Chr onic Pain Take 1 tablet by mouth every 6 (six) hours as needed for Pain. Indications: Chronic Pain Do not take with alprazolam. 30 tablet 03/18/2022 3 lidocaine 5 %Indications:Neck pain Apply pain patch to affected area. Change after 12 hours. 6 patch 08/30/2020 3 lisinopril (PRINIVIL) 20 MG tabletIndications:Hyp ertension associated with type 2 diabetes mellitus ([facility]) Take 1 tablet (20 mg total) by mouth daily. 30 tablet 2 01/13/2022 3 methIMAzole (TAPAZOLE) 10 MG tabletIndications:Hyp erthyroidism Take 1 tablet by mouth once daily 90 tablet 1 02/07/2022 3 metoprolol tartrate (LOPRESSOR) 25 MG tablet Take 0.5 tablets (12.5 mg total) by mouth 2 (two) times daily. 60 tablet 3 11/05/2021 3 omeprazole (PRILOSEC) 20 MG capsuleIndications:GE RD (gastroesophageal reflux disease) Take 1 capsule by mouth once daily 90 capsule 1 02/07/2022 3 potassium chloride CR (K-TAB) 10 MEQ Tab CR tabletIndications:Hyp okalemia Take 1 tablet by mouth once daily 90 tablet 1 02/07/2022 3 rosuvastatin (CRESTOR) 5 MG tabletIndications:Hyp erlipidemia, unspecified hyperlipidemia type TAKE 1 TABLET BY MOUTH NIGHTLY AT BEDTIME 90 tablet 03/13/2022 3 venlafaxine XR (EFFEXOR-XR) 150 MG 24 hr capsuleIndications:Di abetic polyneuropathy associated with type 2 diabetes mellitus (CMS/HCC HHS/HCC),Mild episode of recurrent major depressive disorder (CMS/HCC) Take 1 capsule (150 mg total) by mouth daily. 90 capsule 01/16/2022 3 warfarin (COUMADIN) 6 MG tabletIndications:Chr onic anticoagulation Take 1 tablet (6 mg total) by mouth daily. 30 tablet 2 01/13/2022 3 documented as of this encounter Plan of Treatment Upcoming Encounters Date Type Department Care Team (Late st Contact Info) Description 04/14/2024 2:00 PM ACCOUNT EXECUTIVE Office Visit [facility] Medical Group Multispecialty Care - [facility] [address] [facility], [address] [place] [address] Julio Pulido MD 3 [place] [address] documented as of this encounter Goals Goal Patient Goal Type Associated Problems Recent Progress Patient-Stated? Author Health - patient able to perform ADLs independently General On track(2023 9:49 AM CDT) Dianne Corona RN Note: 12/17/23: Patient stated she is independent with ASL's. Establish Plan for Symptom Monitoring-CHF General On track(2023 11:36 AM ACCOUNT EXECUTIVE) Dianne Corona RN Note: Patient will recognize [...] Monitoring-COPD General On track(2023 11:36 AM ACCOUNT EXECUTIVE) Dianne Corona RN Note: Patient will recognize [...] Monitoring-DM General On track(2023 4:33 PM ACCOUNT EXECUTIVE) Dianne Corona RN Note: Patient will manage [...] Monitoring-HTN General On track(2023 4:33 PM ACCOUNT EXECUTIVE) Dianne Corona RN Note: Patient will monitor [...] Rule Out 03/18/2022 03/18/2022 03/18/2022 12:27 PM ACCOUNT EXECUTIVE COVID-19 Rule Out 03/18/2022 03/18/2022 03/18/2022 12:57 PM ACCOUNT EXECUTIVE COVID-19 Rule Out 03/18/2022 03/18/2022 03/19/2022 1:58 PM ACCOUNT EXECUTIVE Assessment Noted Time PHQ-9 Depression Total Score: 3 12/24/19 22 11:48 AM CDT documented as of this encounter Care Teams Financial Services Technician Relationship Specialty Start Date End Date Sanjeev Webster DO [address] [place] [address] [id number] PCP - General FAMILY PRACTICE 09/25/20 Dianne Johnson RN [address] [place] [address] Interpersonal Communications Professor (Ambulatory) REGISTERED NURSE 08/14/20 documented as of this encounter
--- OUTSIDE RECORDS SUMMARY | 2024-03-15 01:01 | XMS_ITS | Encounter Summary ---
Author Organization [facility] Address [facility] [place] [address] [place] [address] Care Team Providers Care Territory Manager Name Role Phone Dianne Johnson RN Unavailable [phone] Sanjeev Webster DO Primary Care Provider + Reason for Visit * Reason Onset Date Comments Refill Request 03/27/2022 Encounter Details Date Type Department Care Team (Late st Contact Info) Description 03/27/2022 Telephone [facility] Medical Group Family & Internal Medicine [address] [place] [address] Sanjeev Webster DO [facility] [place] [address] Refill Request Social History Tobacco [...] Coronavirus/COVID-19? No / Unsure 03/25/2022 10:46 AM PRINT PROJECT MANAGER documented as of this encounter Functional [...] Progress Notes * Yenifer Ingram MA - 03/27/2022 3:54 PM CST See task on 03/25/2022. 1mg script sent. Patient informed. T PROJECT MANAGER * Donna Norwood - 03/27/2022 3:02 PM CST Radha called in asking for a refill on warfarin 1 mg tablets. I don't see this on her current med list but she said she takes 6 mg tablet plus 1 mg tablet. She said she needs this for tonight. T PROJECT MANAGER documented in this encounter Plan of Treatment Upcoming Encounters Date Type Department Care Team (Late st Contact Info) Description 04/14/2024 2:00 PM PRINT PROJECT MANAGER Office Visit [facility] Medical Group Multispecialty Care - [facility] [address], [address] [place] [address] Julio Pulido MD 3 [place] [address] documented as of this encounter Goals Goal Patient Goal Type Associated Problems Recent Progress Patient-Stated? Author Health - patient able to perform ADLs independently General On track(2023 9:49 AM CDT) Dianne Corona, DALE Note: 12/17/23: Patient stated she is independent with ASL's. Establish Plan for Symptom Monitoring-CHF General On track(2023 11:36 AM PRINT PROJECT MANAGER) Dianne Corona, RN Note: Patient will [...] Symptom Monitoring-COPD General On track(2023 11:36 AM PRINT PROJECT MANAGER) Dianne Corona, RN Note: Patient will [...] Symptom Monitoring-DM General On track(2023 4:33 PM PRINT PROJECT MANAGER) Dianne Corona RN Note: Patient [...] Symptom Monitoring-HTN General On track(2023 4:33 PM PRINT PROJECT MANAGER) Dianne Corona RN Note: Patient [...] documented as of this encounter Care Teams Territory Manager Relationship Specialty Start Date End Date Sanjeev Webster DO [address] [place] [address] PCP - General FAMILY PRACTICE 09/25/20 Dianne Johnson, RN [address] [place] [address] Yoga Instructor (Ambulatory) REGISTERED NURSE 08/14/20 documented as of this encounter
--- OUTSIDE RECORDS SUMMARY | 2024-03-15 01:01 | XMS_ITS | Encounter Summary ---
Author Organization [facility] Address [facility] [facility]. [place], [place] [address] [place] [address] Care Team Providers Care Retail Personal Banker Name Role Phone Dianne Johnson RN Unavailable [phone] Sanjeev Webster DO Primary Care Provider + Encounter Details Date Type Department Care Team (Late st Contact Info) Description 03/07/2022 1:20 PM CERT OCCUPATIONAL THERAPY ASST Laboratory Only [facility] Medical Group Family & Internal Medicine [address] [address] Sanjeev Webster DO [address] [place] [address] Social History Tobacco Use Types Packs/Day [...] Coronavirus/COVID-19? No / Unsure 03/07/2022 1:33 PM CERT OCCUPATIONAL THERAPY ASST documented as of this encounter Functional Status [...] st Contact Info) Description 04/14/2024 2:00 PM CERT OCCUPATIONAL THERAPY ASST Office Visit [facility] Medical Group Multispecialty Care - [facility] [address] [facility], [address] [place] [address] Julio Pulido MD [address] [place] [address] documented as of this encounter Goals Goal Patient Goal Type Associated Problems Recent Progress Patient-Stated? Author Health - patient able to perform ADLs independently General On track(2023 9:49 AM CDT) No Dianne Johnson RN Note: 12/17/23: Patient stated she is independent with ASL's. Establish Plan for Symptom Monitoring-CHF General On track(2023 11:36 AM CERT OCCUPATIONAL THERAPY ASST) Dianne Corona RN Note: Patient will recognize [...] Symptom Monitoring-COPD General On track(2023 11:36 AM CERT OCCUPATIONAL THERAPY ASST) Dianne Corona RN Note: Patient will recognize [...] Symptom Monitoring-DM General On track(2023 4:33 PM CERT OCCUPATIONAL THERAPY ASST) Dianne Corona RN Note: Patient will manage [...] Symptom Monitoring-HTN General On track(2023 4:33 PM CERT OCCUPATIONAL THERAPY ASST) Dianne Corona RN Note: Patient will monitor [...] Diagnosis Comments COLLECTION VENOUS BLOOD VENIPUNCTURE Routine 03/07/2022 1:59 PM CERT OCCUPATIONAL THERAPY ASST Chronic anticoagulation PROTHROMBIN TIME, VENOUS Routine 03/07/2022 1:59 PM CERT OCCUPATIONAL THERAPY ASST Chronic anticoagulation documented in this encounter Results * (ABNORMAL) PROTIME/INR, VENOUS (03/07/2022 1:59 PM CERT OCCUPATIONAL THERAPY ASST) PROTIME 23.2(H) 9.3 - 11.6 SEC 03/07/2022 7:44 PM CERT OCCUPATIONAL THERAPY ASST [facility] MISA MOHR INR 2.4(H) 0.9 - 1.1 03/07/2022 7:44 PM CERT OCCUPATIONAL THERAPY ASST [facility] Comment: TREATMENT OR PROPHYLAXIS AGAINST: ?? THERAPEUTIC RANGE (INR): ?VENOUS THROMBOSIS ? 2.0-3.0 ?PULMONARY EMBOLUS ? 2.0-3.0 ?? MECHANICAL PROSTHETIC VALVES ? 2.5-3.5 03/07/2022 1:59 PM CERT OCCUPATIONAL THERAPY ASST us Sanjeev Webster DO LABORATORY Final Re sult [facility] [place] [address] [facility] [address], documented in this encounter Visit Diagnoses Diagnosis Chronic anticoagulation- Primary Encounter for long-term (current) use of anticoagulants documented in this encounter Additional Health Concerns Assessment Noted Time PHQ-9 Depression Total Score: 3 12/24/19 22 11:48 AM CDT documented as of this encounter Care Teams Retail Personal Banker Relationship Specialty Start Date End Date Sanjeev Webster DO [address] [place] [address] PCP - General FAMILY PRACTICE 09/25/20 Dianne Johnson, RN [address] [place] [address] Dry House Worker (Ambulatory) REGISTERED NURSE 08/14/20 documented as of this encounter
--- OUTSIDE RECORDS SUMMARY | 2024-03-15 01:01 | XMS_ITS | Encounter Summary ---
Author Organization [facility] Address Critical access hospital[facility] [place] [address] [place] [address] Care Team Providers Care Developmental Training Counselor Name Role Phone Dianne Johnson RN Unavailable [phone] Sanjeev Webster DO Primary Care Provider + Reason for Visit * Reason Onset Date Comments DUYEN 03/20/2022 Santos 03/18- Encounter Details Date Type Department Care Team (Late st Contact Info) Description 03/20/2022 Patient Outreach [facility] Family & Internal Medicine [address] [address] Dianne Johnson, RN [address] [place] [address] TCM (Santos 03/18-03/19) Social History Tobacco Use Types Packs/Day Years [...] Coronavirus/COVID-19? No / Unsure 03/18/2022 11:37 AM MANAGER VISUAL documented as of this encounter Functional Status [...] Progress Notes * Dianne Johnson RN - 03/20/2022 7:13 AM CST Images from the original note were not included. Follow up call to patient post hospitalization Patient admitted to [facility] on 03/18/22 with the following D/C DX: Discharge date: 03/19/22 Date of Contact: 03/20/22 Hospital Course: Patient Status: (Including education, discharge instructions, s/sx to infection, and when to seek medical attn) Contacted patient today. She is a very pleasant 76 year old recently D/C from [facility]. Reviewed D/C instructions. Patient stated she started Cefdinir yesterday. Encouraged patient to watch for s/s of bleeding as Cefdinir and Warfarin can increase risk for bleeding. Patient denies any s/s at this time. INR on 03/18/22 at [facility] 1.8. Message sent to 's nursing team to find out when patient should get a repeat INR. Patient stated she is sipping on Gatorade zero sugar and water. Encouraged patient the importance of getting plenty of fluid in to prevent dehydration or if on fluid restriction to drink what is recommended. Educated on s/s of dehydration such as dry mouth, lightheaded, feeling thirsty, tiredness, passing urine less often than usual or dark colored urine with a strong urine smell. Patient denies any s/s at present. Encouraged to keep urine a pale yellow in color. Contact CC at the onset of any changes. Educated on s/s of UTI: burning upon urination or pain, needing to urinate more often but passing small amounts, cloudy urine, strong smelling urine, hematuria, or lower abdominal pressure. Patient stated she has burning when urinating and lower pelvic pressure. She is taking antibiotic. Encouraged to contact CC when she completes antibiotic and if she continues to have s/s of UTI. Patient verbalizes understanding. Denies dizziness, fever, chills, nausea, vomiting or diarrhea. Reports BM this morning and she is voiding ok. Patient hasn't been checking B/P. Encouraged the importance of checking B/P at home, recording readings and bringing B/P readings to upcoming appointment on 03/31/22 at 10:40 am. Patient stated she is unable to get her B/P monitor to work. Stated she will try it again and if she can check i t will bring B/P readings. Patient stated She is aware to hold her diurectic for a week. Stated she hasn't mentioned it to Izzy who takes care of her pill senior media planner at this time. Stated she takes her diuretic in the evening time since she never knows what she is doing in the daytime. Stated she pulled the diuretic out of herpill senior media planner last night. Encouraged to monitor for s/s of swelling since she is off Furosemide until 03/26/22. If she develops LE edema to elevate legs while she is sitting or call CC if swelling is present. Patient denies any swelling at this time. Stated she has bilateral cramps from knee's to feet on and off. She is wanting to know what she cain about this issue. According to medication list patient is taking rosuvastatin 5 mg at bedtime. Message sent to nursing team. Patient is aware. Patient has CC direct phone number. Encouraged to call at the onset of any changes. Patient verbalizes understanding. 03/20: Spoke to Izzy and updated medication list. Pertinent Labs: Pertinent Procedures/Imaging performed while inpatient: Discharge Disposition: Home Any follow up appointments needed to be scheduled: yes - TCM appointment with . Future Appointments Date Time Provider Department Center 03/31/2022 10:40 AM Sanjeev Webster, MGFMMRVL [facility] 05/02/2022 11:00 AM Panda Moreno MD [facility] Referrals needed: no Any follow up labs/imaging needed: Defer to PCP Allergies: Allergies Allergen Reactions ??? Atorvastatin Leg Pain Leg pain/cramps. Resolved after stopping. ??? Tape Contact Dermatitis ??? Bacitracin Other (see comment) ??? Benzalkonium Other (see comment) ??? Gramicidin Other (see comment) ??? Hydrocortisone Other (see comment) ??? Neomycin Other (see comment) ??? Polymyxin B Other (see comment) Medications: Outpatient medications have been reconciled with hospital discharge list. See below for changes. Current Outpatient Medications Medication Sig Note Dispense Refill ??? acetaminophen (TYLENOL) 500 MG [...] by mouth nightly.) 30 tablet 0 ??? cefdinir (OMNICEF) 300 MG Cap capsule Take 300 mg by mouth every 12 (twelve) hours. ??? Cholecalciferol (VITAMIN D3) 25 MCG (1000 UT) Cap Take 1,000 Units by mouth daily. ??? FEROSUL 325 (65 Fe) MG tablet Take 1 tablet by mouth once daily 03/20/2022: Ferrous sulfate 90 tablet 0 ??? gabapentin (NEURONTIN) 300 [...] by mouth daily. 30 tablet 2 ??? fluticasone propionate 50 MCG/ACT nasal spray 2 sprays by Nasal route daily. 03/20/2022: Daughter in law will confirm with patient ??? furosemide (LASIX) 20 MG tablet Take 3 tablets by mouth once daily 03/20/2022: Per [facility]: Resume on 03/26/22 90 tablet 0 ??? lidocaine 5 % Apply pain patch to affected area. Change after 12 hours. 03/20/2022: Daughter in law will check to see if she is using. 6 patch 0 No current facility-administered medications for this visit. Facility-Administered Medications Ordered in Other Visits Medication Dose Route Frequency Provider Last Rate Last Admin ??? denosumab (PROLIA) injection 60 mg 60 mg Subcutaneous Once Panda Moreno MD Medication Changes or Discontinued Medications: Patient is aware of the following: Does patient have difficulty affording medication: No Do any medications need refilled: No Does patient have access to care and services (rides, etc)? Yes Patient Goals: Patient will monitor s/s and report the onset of any changes to CC or office. Patient will establish regular f/u with PCP. Plan of Care: Follow up with on 03/31/22 or call before that time if needed. GER VISUAL documented in this encounter Plan of Treatment Upcoming Encounters Date Type Department Care Team (Late st Contact Info) Description 04/14/2024 2:00 PM MANAGER VISUAL Office Visit [facility] Multispecialty Care - [facility] [address] [facility], [address] [place] [address] Julio Pulido MD [address] [place] [address] documented as of this encounter Goals Goal Patient Goal Type Associated Problems Recent Progress Patient-Stated? Author Health - patient able to perform ADLs independently General On track(2023 9:49 AM CDT) Dianne Corona, DALE Note: 12/17/23: Patient stated she is independent with ASL's. Establish Plan for Symptom Monitoring-CHF General On track(2023 11:36 AM MANAGER VISUAL) Dianne Corona, DALE Note: Patient will recognize [...] Monitoring-COPD General On track(2023 11:36 AM MANAGER VISUAL) Dianne Corona, RN Note: Patient will recognize [...] Monitoring-DM General On track(2023 4:33 PM MANAGER VISUAL) Dianne Corona RN Note: Patient will manage [...] Monitoring-HTN General On track(2023 4:33 PM MANAGER VISUAL) Dianne Corona RN Note: Patient will monitor [...] documented as of this encounter Care Teams Developmental Training Counselor Relationship Specialty Start Date End Date Sanjeev Webster DO [address] [place] [address] PCP - General FAMILY PRACTICE 09/25/20 Dianne Johnson, RN [address] [place] [address] Civil Litigation Attorney (Ambulatory) REGISTERED NURSE 08/14/20 documented as of this encounter
--- OUTSIDE RECORDS SUMMARY | 2024-03-15 01:01 | XMS_ITS | Encounter Summary ---
Author Organization [facility] Address Formerly [facility] [place] [address] [place] [address] Care Team Providers Care Parlor Maid Name Role Phone Casey Johnson RN Unavailable [phone] Sanjeev Webster DO Primary Care Provider + Reason for Referral * Consultation (Routine) - Closed Specialty Diagnoses / Procedures Referred By Ian malagon Referred To Contact SENIOR [employer]UT[employer] WORKFLOW CONSULTANT Diagnoses Care Management Procedures OFFICE/OUTPT VISIT,NEW,LEVL III OFFICE/OUTPT VISIT,NEW,LEVL IV OFFICE/OUTPT VISIT,NEW,LEVL V OFFICE/OUTPT VISIT,EST,LEVL III OFFICE/OUTPT VISIT,EST,LEVL IV OFFICE/OUTPT VISIT,EST,LEVL V Sanjeev Webster DO [address] [place] [address] Phone: tel: fax: Bebe Dan, OUTSOLE CASER [address] [place] [address] Phone: tel: fax: Referral ID Status Reason Start Date Expiration Date V isits Requested Visits Authorized [id number] Closed Specialty Services 04/03/2022 05/03/2023 1 1 OSITION CLERK Reason for Visit * Reason Onset Date Comments Care Management 04/03/2022 Encounter Details Date Type Department Care Team (Late st Contact Info) Description 04/03/2022 Patient Outreach [facility] Family & Internal Medicine [address] [address] Casey Johnson, RN [address] [place] [address] Care Management Social History Tobacco Use Types [...] Coronavirus/COVID-19? No / Unsure 03/31/2022 10:01 AM DISPOSITION CLERK documented as of this encounter Functional Status [...] Progress Notes * Casey Johnson RN - 04/03/2022 4:08 PM CST Images from the original note were not included. Chronic Care Management: Patient Status: Contacted patient today. She is a very pleasant 76 year old. Stated she had lab work done at [facility] on 03/31/22 after she left 's office and requesting results. Informed patientthat CC will reach out to [facility] medical records and get results for to review. Patient denies issues with worsening sob or edema. Stated she is not weighing herself every morningas recommended. Encouraged to call at the onset of any changes. Patient verbalizes understanding. 04/03: Patient stated she had lab work done at [facility] on 03/31/22. Contacted Ginger with medical records at [facility]. She will fax results. 04/03: Received lab results from [facility]. Patient had hematology and chemistry lab work done. Copy of results faxed to . Glucose: 99. Plan of Care: transportation coordinator will continue to follow up by phone, provide resources when needed, educate on disease management, and assess chronic conditions. Reviewed social determinants of health with patient. Stated she has a lot of medical bills from [facility]. Requesting resources to help cover. Electric bill $531 this month and $480 last month. She is requesting resources to sign up for [employer]. Referral sent to Bebe for resources. Patient stated she gets food stamps now and ok with food and she utilizes the food pantry. Social Determinants of Health Tobacco Use: Low Risk ??? Smoking Tobacco Use: Never ??? Smokeless Tobacco Use: Never ??? Passive Exposure: Not on file Alcohol Use: Not on file Financial Resource Strain: High Risk ??? Difficulty [...] file Intimate Partner Violence: Not on file Depression: Not at risk ??? PHQ-2 Score: 1 Housing Stability: Low Risk ??? Unable to Pay for Housing in the Last Year: No ??? Number of Places Lived in the Last Year: 1 ??? Unstable Housing in the Last Year: No Patient Goals: Goals Addressed This Visit's Progress [...] any medications without discussing with your provider. 04/03/22: Stable at this time. ??? Establish Plan for Symptom Monitoring-COPD On [...] any of your medications without notifying provider 04/03/22: Stable at this time. ??? Establish Plan [...] follow up with her provider as scheduled. 04/03/22: Glucose on 03/31: 99 01/15/22: A1C on 01/13/22: 6.2 Upcoming Visit Appointments: Future Appointments Date Time Provider Department Center 05/01/2022 1:00 PM DO CHINYERE Santamaria 05/02/2022 11:00 AM Panda Moreno MD [facility] [...] Chronic anticoagulation ??? Coronary artery disease involving hydaburg coronary artery of hydaburg heart without angina pectoris ??? Dyspnea on [...] Time spent with patient (minutes): 13 (Comment: Call to [facility] medical records) Time spent performing chart review (minutes): 9 Total time (minutes): 22 CASEY JOHNSON RN I reviewed the patient's status and education provided by CASEY JOHNSON RN. I agree with the findings and recommendations made. Cosigned by Sanjeev Webster DO at 04/06/2022 6:31 PM DISPOSITION CLERK OSITION CLERK OSITION CLERK OSITION CLERK documented in this encounter Plan of Treatment Upcoming Encounters Date Type Department Care Team (Late st Contact Info) Description 04/14/2024 2:00 PM DISPOSITION CLERK Office Visit [facility] Multispecialty Care - [facility] [address] [facility], [address] [place] [address] Julio Pulido MD [address] [place] [address] Scheduled Referrals Name Type Priority Associated Diagnoses Orde r Schedule Ambulatory referral to Social Work (Bebe Dan) Referral Routine Care Management Ordered: 04/03/2022 documented as of this encounter Goals Goal Patient Goal Type Associated Problems Recent Progress Patient-Stated? Author Health - patient able to perform ADLs independently General On track(2023 9:49 AM CDT) Casey Corona RN Note: 12/17/23: Patient stated she is independent with ASL's. Establish Plan for Symptom Monitoring-CHF General On track(2023 11:36 AM DISPOSITION CLERK) Casey Corona RN Note: Patient will [...] General On track(2023 11:36 AM DISPOSITION CLERK) Casey Corona RN Note: Patient will [...] General On track(2023 4:33 PM DISPOSITION CLERK) Casey oCrona RN Note: Patient will manage [...] General On track(2023 4:33 PM DISPOSITION CLERK) Casey Corona RN Note: Patient will monitor B/P several times per week , record readings and report to physician or CC if B/P consistently >130/80 Take your medications as prescribed. Follow up with your provider as scheduled. Take your blood pressure at least several times a week if able. documented as of this encounter Visit Diagnoses Diagnosis Care Management- Primary documented in this encounter Additional Health Concerns Assessment Noted Time PHQ-9 Depression Total Score: 3 12/24/19 22 11:48 AM CDT documented as of this encounter Care Teams Parlor Maid Relationship Specialty Start Date End Date Sanjeev Webster DO [address] [place] [address] PCP - General FAMILY PRACTICE 09/25/20 Casey Johnson, RN [address] [place] [address] Web Communications Specialist (Ambulatory) REGISTERED NURSE 08/14/20 documented as of this encounter
--- OUTSIDE RECORDS SUMMARY | 2024-03-15 01:01 | XMS_ITS | Encounter Summary ---
Author Organization [facility] Address [address] [place] [address]. [place] [address] [place] [address] Care Team Providers Care Pie Maker Name Role Phone Dianne Johnson RN Unavailable [phone] Sanjeev Alcantar DO Primary Care Provider + Reason for Visit * Reason Onset Date Comments Results 03/25/2022 Encounter Details Date Type Department Care Team (Late st Contact Info) Description 03/25/2022 Telephone [facility] Family Medicine [facility] [address] [place] [address] Bebe Hammond MD [address] [place] [address] Results Social History Tobacco Use Types Packs/Day [...] Coronavirus/COVID-19? No / Unsure 03/25/2022 10:46 AM SPORTS DOCTOR documented as of this encounter Functional [...] Progress Notes * Trixie Jose MA - 03/26/2022 4:08 PM CST See other task. I contacted Izzy and informed to increase by 1 mg daily and recheck in 1 week Izzy voiced understanding tn TS DOCTOR TS DOCTOR * Humera Stone - 03/26/2022 11:19 AM CST Pt is calling regarding her results. She is asking if someone will give her a call back. She says that she needs to speak with dr. alcantar's staff Pt [phone] TS DOCTOR * Bebe Hammond MD - 03/25/2022 6:24 PM CST Pt had received a message to call the clinic regarding her INR. No message was left. In looking at her chart, today's note includes an INR of 1.4 and instructions to increase (assuming coumadin) to 7mg but with no sig then to repeat INR in a week. Conveyed to Ms. Huynh, recommended to call the clinic in the am for clarification. PT VU. TS DOCTOR documented in this encounter Plan of Treatment Upcoming Encounters Date Type Department Care Team (Late st Contact Info) Description 04/14/2024 2:00 PM SPORTS DOCTOR Office Visit [facility] Multispecialty Care - [facility] [address] [facility], [address] [place] [address] Julio Pulido MD [address] [place] [address] documented as of this encounter Goals Goal Patient Goal Type Associated Problems Recent Progress Patient-Stated? Author Health - patient able to perform ADLs independently General On track(2023 9:49 AM CDT) No Dianne Johnson, RN Note: 12/17/23: Patient stated she is independent with ASL's. Establish Plan for Symptom Monitoring-CHF General On track(2023 11:36 AM SPORTS DOCTOR) Dianne Corona, RN Note: Patient will [...] Symptom Monitoring-COPD General On track(2023 11:36 AM SPORTS DOCTOR) Dianne Corona RN Note: Patient will [...] Symptom Monitoring-DM General On track(2023 4:33 PM SPORTS DOCTOR) Dianne Corona RN Note: Patient will [...] Symptom Monitoring-HTN General On track(2023 4:33 PM SPORTS DOCTOR) Dianne Corona RN Note: Patient will monitor B/P several times per week , record readings and report to physician or CC if B/P consistently >130/80 Take your medications as prescribed. Follow up with your provider as scheduled. Take your blood pressure at least several times a week if able. documented as of this encounter Visit Diagnoses Diagnosis Abnormal INR- Primary Abnormal coagulation profile documented in this encounter Additional Health Concerns Assessment Noted Time PHQ-9 Depression Total Score: 3 12/24/19 22 11:48 AM CDT documented as of this encounter Care Teams Pie Maker Relationship Specialty Start Date End Date Sanjeev Alcantar DO [address] [place] [address] PCP - General FAMILY PRACTICE 09/25/20 Dianne Johnson, RN [facility] [place] [address] Construction Equipment Overhauler (Ambulatory) REGISTERED NURSE 08/14/20 documented as of this encounter
--- OUTSIDE RECORDS SUMMARY | 2024-03-15 01:01 | XMS_ITS | Encounter Summary ---
Author Organization [facility] Address [facility] [place] [address] [place] [address] Care Team Providers Care Sterile Processing Tech Name Role Phone Dianne Johnson RN Unavailable [phone] Sanjeev Webster DO Primary Care Provider + Reason for Visit * Reason Onset Date Comments Lab Results 02/20/2022 Encounter Details Date Type Department Care Team (Late st Contact Info) Description 02/20/2022 Telephone [facility] Family & Internal Medicine [address] [address] Sanjeev Webster DO [facility] [place] [address] Lab Results Social History Tobacco [...] suspected to have Coronavirus/COVID-19? No / Unsure 02/20/2022 1:32 PM FRAME BUILDER documented as of this encounter Functional Status [...] encounter Progress Notes * Adrianne Alford - 02/28/2022 12:48 PM CST Izzy called in states that she did receive the message. E BUILDER * Shanel Staley MA - 02/28/2022 12:38 PM CST Spoke with patient who confirmed Izzy changed her dose recently but she is not sure what she is nowon. LM for Izzy to ensure she got message. E BUILDER * Trixie Jose MA - 02/21/2022 3:20 PM CST Left detailed message for Izzy with new directions.02/21/22 tn E BUILDER E BUILDER * Sanjeev Webster DO - 02/20/2022 5:17 PM CST Let's have her do 7 mg on Thursday and Thursday and 6 mg M-F. Recheck in 1 week. E BUILDER * Trixie Jose MA - 02/20/2022 5:00 PM CST Taking 6 mg daily for the past month per daughter in law Izzy. E BUILDER * Trixie Jose MA - 02/20/2022 4:59 PM CST ----- Message from Sanjeev Webster DO sent at 02/20/2022 3:05 PM FRAME BUILDER ----- Mildly below goal; clarify current dosing please. E BUILDER documented in this encounter Plan of Treatment Upcoming Encounters Date Type Department Care Team (Late st Contact Info) Description 04/14/2024 2:00 PM FRAME BUILDER Office Visit [facility] Multispecialty Care - [facility] [address] [facility], [address] [place] [id number] Julio Pulido MD [address] [place] [address] documented as of this encounter Goals Goal Patient Goal Type Associated Problems Recent Progress Patient-Stated? Author Health - patient able to perform ADLs independently General On track(2023 9:49 AM CDT) Dianne Corona RN Note: 12/17/23: Patient stated she is independent with ASL's. Establish Plan for Symptom Monitoring-CHF General On track(2023 11:36 AM FRAME BUILDER) Dianne Corona RN Note: Patient will recognize [...] Symptom Monitoring-COPD General On track(2023 11:36 AM FRAME BUILDER) Dianne Corona RN Note: Patient will recognize [...] Symptom Monitoring-DM General On track(2023 4:33 PM FRAME BUILDER) Dianne Corona RN Note: Patient will manage [...] Symptom Monitoring-HTN General On track(2023 4:33 PM FRAME BUILDER) Dianne Corona, RN Note: Patient will monitor [...] documented as of this encounter Care Teams Sterile Processing Tech Relationship Specialty Start Date End Date Sanjeev Webster DO [address] [place] [address] PCP - General FAMILY PRACTICE 09/25/20 Dianne Johnson, RN [address] [place] [address] Ultrasound Manager (Ambulatory) REGISTERED NURSE 08/14/20 documented as of this encounter
--- OUTSIDE RECORDS SUMMARY | 2024-03-15 01:01 | XMS_ITS | Encounter Summary ---
Author Organization [facility] Address [facility] [facility] [place] [address] [place] [address] Care Team Providers Care Oven Operator Automatic Name Role Phone Dianne Johnson RN Unavailable [phone] Sanjeev Webster DO Primary Care Provider + Encounter Details Date Type Department Care Team (Latest Contact Info) Description 02/20/2022 Travel Social History Tobacco Use Types Packs/Day [...] Coronavirus/COVID-19? No / Unsure 02/20/2022 1:32 PM CEMENT FINISHER APPRENTICE documented as of this encounter Functional Status [...] st Contact Info) Description 04/14/2024 2:00 PM CEMENT FINISHER APPRENTICE Office Visit [facility] Multispecialty Care - [facility] [address] [facility], [address] [place] [id number] Julio Pulido MD [address] [place] [address] documented as of this encounter Goals Goal Patient Goal Type Associated Problems Recent Progress Patient-Stated? Author Health - patient able to perform ADLs independently General On track(2023 9:49 AM CDT) No Dianne Johnson, RN Note: 12/17/23: Patient stated she is independent with ASL's. Establish Plan for Symptom Monitoring-CHF General On track(2023 11:36 AM CEMENT FINISHER APPRENTICE) Dianne Corona, RN Note: Patient will recognize [...] Symptom Monitoring-COPD General On track(2023 11:36 AM CEMENT FINISHER APPRENTICE) Dianne Corona RN Note: Patient will [...] Symptom Monitoring-DM General On track(2023 4:33 PM CEMENT FINISHER APPRENTICE) Dianne Corona, DALE Note: Patient will manage [...] Symptom Monitoring-HTN General On track(2023 4:33 PM CEMENT FINISHER APPRENTICE) Dianne Corona RN Note: Patient will [...] documented as of this encounter Care Teams Oven Operator Automatic Relationship Specialty Start Date End Date Sanjeev Webster DO [address] [place] [address] PCP - General FAMILY PRACTICE 09/25/20 Dianne Johnson, RN [address] [place] [address] Telephone Worker (Ambulatory) REGISTERED NURSE 08/14/20 documented as of this encounter
--- OUTSIDE RECORDS SUMMARY | 2024-03-15 01:01 | XMS_ITS | Encounter Summary ---
Author Organization [facility] Address [facility]6 [facility] [place] [address] [place] [address] Care Team Providers Care Latex Spooler Name Role Phone Dianne Johnson RN Unavailable [phone] Sanjeev Webster DO Primary Care Provider + Reason for Visit * Reason Onset Date Comments Anticoagulation 03/25/2022 Encounter Details Date Type Department Care Team (Late st Contact Info) Description 03/25/2022 Telephone [facility] Family & Internal Medicine [facility] [address] [place] [address] Camelia Washington APNP [address] [place] [address] Anticoagulation Social History Tobacco Use [...] Coronavirus/COVID-19? No / Unsure 03/25/2022 10:46 AM CARE ATTENDANT documented as of this encounter Functional Status [...] Progress Notes * Latha Ring MA - 03/26/2022 1:31 PM CST Patient informed and v/u. She believes she is taking 6mg, she notes Izzy, her [id number] takescare of all her medication. She will let her know to add 1mg daily. (extample: if she is taking 6mgincrease to 7mg daily) ATTENDANT * Latha Ring MA - 03/25/2022 5:25 PM CST This RAAD left voicemail for patient to return call to office 03/25/22 ATTENDANT * Latha Ring MA - 03/25/2022 5:24 PM CST Images from the original note were not included. MARU Hodge MA Increase to 7 mg and recheck IINR in one week ATTENDANT documented in this encounter Plan of Treatment Upcoming Encounters Date Type Department Care Team (Late st Contact Info) Description 04/14/2024 2:00 PM CARE ATTENDANT Office Visit [facility] Multispecialty Care - [facility] [address] [facility], [address] [place] [id number] Julio Pulido MD [address] [place] [address] documented as of this encounter Goals Goal Patient Goal Type Associated Problems Recent Progress Patient-Stated? Author Health - patient able to perform ADLs independently General On track(2023 9:49 AM CDT) Dianne Corona RN Note: 12/17/23: Patient stated she is independent with ASL's. Establish Plan for Symptom Monitoring-CHF General On track(2023 11:36 AM CARE ATTENDANT) Dianne Corona RN Note: Patient will [...] Monitoring-COPD General On track(2023 11:36 AM CARE ATTENDANT) Dianne Corona RN Note: Patient will [...] Monitoring-DM General On track(2023 4:33 PM CARE ATTENDANT) Dianne Corona RN Note: Patient will [...] Monitoring-HTN General On track(2023 4:33 PM CARE ATTENDANT) Dianne Corona RN Note: Patient will [...] documented as of this encounter Care Teams Latex Spooler Relationship Specialty Start Date End Date Sanjeev Webster DO [address] [place] [address] PCP - General FAMILY PRACTICE 09/25/20 Dianne Johnson, RN [address] [place] [address] Electrical Engineering Draftsperson (Ambulatory) REGISTERED NURSE 08/14/20 documented as of this encounter
--- OUTSIDE RECORDS SUMMARY | 2024-03-15 01:01 | XMS_ITS | Encounter Summary ---
Author Organization [facility] Address [facility]6 [facility]. [place], [place] [address] [place] [address] Care Team Providers Care Molding Plasterer Name Role Phone Dianne Johnson RN Unavailable [phone] Sanjeev Webster DO Primary Care Provider + Reason for Visit * Reason Comments TCM Santos. UTI and AK I. Encounter Details Date Type Department Care Team (Late st Contact Info) Description 03/31/2022 10:40 AM FLOOR STEWARD/STEWARDESS Office Visit [facility] Family & Internal Medicine [place] [id number] [place] [address] Sanjeev Webster DO [address] [place] [address] TCM (Santos. UTI and OLIVE. ) Social History Tobacco Use Types Packs/Day [...] Coronavirus/COVID-19? No / Unsure 03/31/2022 10:01 AM FLOOR STEWARD/STEWARDESS documented as of this encounter Last Filed Vital Signs Vital Sign Reading Time Taken Comments Blood Pressure 106/56 03/31/2022 10:45 AM FLOOR STEWARD/STEWARDESS Pulse 53 03/31/2022 10:45 AM FLOOR STEWARD/STEWARDESS Temperature 36.7 ??C (98 ??F) 03/31/2022 10:45 AM FLOOR STEWARD/STEWARDESS Respiratory Rate 16 03/31/2022 10:45 AM FLOOR STEWARD/STEWARDESS Oxygen Saturation 98% 03/31/2022 10:45 AM FLOOR STEWARD/STEWARDESS Inhaled Oxygen Concentration - - Weight 77.7 kg (171 lb 6.4 oz) 03/31/2022 10:45 AM FLOOR STEWARD/STEWARDESS Height 165.1 cm (5' 5 ) 03/31/2022 10:45 AM FLOOR STEWARD/STEWARDESS Body Mass Index 28.52 03/31/2022 10:45 AM FLOOR STEWARD/STEWARDESS documented in this encounter Functional Status * [...] R N Active documented in this encounter Patient Instructions * Patient Instructions* Sanjeev Webster DO - 03/31/2022 10:40 AM FLOOR STEWARD/STEWARDESS Keep your warfarin at 7 mg daily. Recheck your PT/INR in 1 week. We have ordered labs for you to dosometime this week at [facility]. It does not need to be fasting, but does need to be done this week. We will call you back regarding your urine culture results. R STEWARD/STEWARDESS R STEWARD/STEWARDESS R STEWARD/STEWARDESS documented in this encounter Progress Notes * Sanjeev Webster DO - 03/31/2022 10:40 AM CST Images from the original note were not included. GENERAL OFFICE VISIT Encounter Date: 03/31/2022 Chief Complaint: 76-year-old female presents for TCM ([facility]. UTI and OLIVE. ) History of Present Illness: Transitional Care Note: Pt was admitted on: 03/18/22 Pt was discharged on: 03/19/22 Admit Diagnosis: UTI, Hypotension, OLIVE Discharge Diagnosis: See Above Initial Nursing contact: See telephone encounter on: 03/20/22 Discharge note from [facility] was not available at time of writing In summary: Per patient she was given IV fluids and abx treatment. Pt was sent Cefdinir as an outpatient. Since Discharge: Radha has been doing better. She has finished her Cefdinir. Pt needs another PT/INR. Pt needs her venlafaxine adjusted today. Pt has no acute complaints. ROS: Review of Systems Constitutional: Negative for fever. Respiratory: Negative for shortness of breath. Cardiovascular: Negative for chest pain and leg swelling. Gastrointestinal: See HPI Genitourinary: Some lower abdominal pain discomfort still lingering Musculoskeletal: Negative for myalgias. Psychiatric/Behavioral: See HPI Medications: Current Outpatient Medications: ??? acetaminophen (TYLENOL) 500 MG tablet, Take 500 mg by mouth daily as needed. No more then 2500 mg per day., Disp: , Rfl: ??? albuterol sulfate HFA 108 (90 Base) MCG/ACT inhaler, Inhale 2 puffs into the lungs every 6 (six) hours as needed for Wheezing., Disp: 18 g, Rfl: 1 ??? ALPRAZolam (XANAX) 0.25 MG tablet, Take 1 tablet by mouth twice daily as needed for anxiety (Patient taking differently: Take 0.25 mg by mouth nightly.), Disp: 30 tablet, Rfl: 0 ??? Cholecalciferol (VITAMIN D3) 25 MCG (1000 UT) Cap, Take 1,000 Units by mouth daily., Disp: , Rfl: ??? FEROSUL 325 (65 Fe) MG tablet, Take 1 tablet by mouth once daily, Disp: 90 tablet, Rfl: 0 ??? furosemide (LASIX) 20 MG tablet, Take 3 tablets by mouth once daily, Disp: 90 tablet, Rfl: 0 ??? gabapentin (NEURONTIN) 300 MG capsule, Take 1 capsule (300 mg total) by mouth 2 (two) times daily., Disp: 180 capsule, Rfl: 0 ??? HYDROcodone-acetaminophen (NORCO) 10-325 MG tablet, Take 1 tablet by mouth every 6 (six) hours as needed for Pain. Indications: Chronic Pain Do not take with alprazolam., Disp: 30 tablet, Rfl: 0 ??? lisinopril (PRINIVIL) 20 MG tablet, Take 1 tablet (20 mg total) by mouth daily., Disp: 30 tablet, Rfl: 2 ??? methIMAzole (TAPAZOLE) 10 MG tablet, Take 1 tablet by mouth once daily, Disp: 90 tablet, Rfl: 1 ??? metoprolol tartrate (LOPRESSOR) 25 MG tablet, Take 0.5 tablets (12.5 mg total) by mouth 2 (two)times daily., Disp: 60 tablet, Rfl: 3 ??? omeprazole (PRILOSEC) 20 MG capsule, Take 1 capsule by mouth once daily, Disp: 90 capsule, Rfl:1 ??? potassium chloride CR (K-TAB) 10 MEQ Tab CR tablet, Take 1 tablet by mouth once daily, Disp: 90tablet, Rfl: 1 ??? rosuvastatin (CRESTOR) 5 MG tablet, TAKE 1 TABLET BY MOUTH NIGHTLY AT BEDTIME, Disp: 90 tablet,Rfl: 0 ??? Venlafaxine HCl (VENLAFAXINE XR) 225 MG TABLET SR 24 HR 24 hr tablet, Take 225 mg by mouth daily., Disp: 90 tablet, Rfl: 1 ??? warfarin (COUMADIN) 1 MG tablet, Take 1 tablet (1 mg total) by mouth daily., Disp: 30 tablet, Rfl: 0 ??? warfarin (COUMADIN) 6 MG tablet, Take 1 tablet (6 mg total) by mouth daily., Disp: 30 tablet, Rfl: 2 No current facility-administered medications for this visit. Facility-Administered Medications Ordered in Other Visits: ??? denosumab (PROLIA) injection 60 mg, 60 mg, [...] differently: Take 0.25 mg by mouth nightly.) ??? Cholecalciferol (VITAMIN D3) 25 MCG (1000 UT) Cap Take 1,000 Units by mouth daily. ??? FEROSUL 325 (65 Fe) MG tablet Take 1 tablet by mouth once daily ??? furosemide (LASIX) 20 MG tablet Take 3 tablets by mouth once daily ??? gabapentin (NEURONTIN) 300 MG capsule Take 1 capsule (300 mg total) by mouth 2 (two) times daily. ??? HYDROcodone-acetaminophen (NORCO) 10-325 MG [...] tablet (1 mg total) by mouth daily. ??? warfarin [...] comment) ??? Polymyxin B Other (see comment) Patient Active Problem List Diagnosis ??? Abnormal stress test ??? Chronic anticoagulation ??? Coronary artery disease involving chinik coronary artery of chinik heart without angina pectoris ??? Dyspnea on [...] Social History Socioeconomic History ??? Marital status: Tobacco Use ??? Smoking status: Never ??? Smokeless tobacco: Never ??? Tobacco comments: non smoker Vaping Use ??? Vaping Use: Never used Substance and Sexual Activity ??? Alcohol use: Not Currently ??? Drug use: Yes Types: Hydrocodone Comment: chronic pain Family History Problem Relation Name Age of Onset ??? Heart Father ??? Diabetes Father ??? Heart Mother Family Status Relation Name Status ??? Father ??? Mother Objective: Filed Vitals: 03/31/22 1045 BP: 106/56 Pulse: (!) 53 Resp: 16 Temp: 98 ??F (36.7 ??C) TempSrc: Skin SpO2: 98% Weight: 77.7 kg (171 lb 6.4 oz) Height: 5' 5 (1.651 m) Physical [...] abdominal tenderness. Musculoskeletal: Cervical back: Neck supple. Left lower leg: No edema. Skin: General: Skin is warm and dry. Neurological: Mental Status: She is alert. Mental status is at baseline. Office Visit on 03/31/2022 Component Date Value Ref Range Status ??? COLOR (U) 03/31/2022 YELLOW Final ??? TRANSPARENCY 03/31/2022 CLEAR Final ??? GLUCOSE (U) 03/31/2022 NEGATIVE NEGATIVE MG/DL Final ??? BILIRUBIN (U) 03/31/2022 1+ (SMALL) NEGATIVE Final ??? U KETONES 03/31/2022 5 (TRACE) NEGATIVE MG/DL Final ??? Specific [place] (U) 03/31/2022 1.025 1.001 - 1.035 Final ??? BLOOD 03/31/2022 NEGATIVE NEGATIVE Final ??? U PH 03/31/2022 5.5 5.0 - 9.0 Final ??? PROTEIN (U) 03/31/2022 1+ (30) NEGATIVE mg/dL Final ??? UROBILINOGEN 03/31/2022 0.2 0.2 - 1.0 EU/dL = mg/dL Final ??? NITRITES 03/31/2022 NEGATIVE NEGATIVE MG/DL Final ??? LEUKOCYTE ESTERASE 03/31/2022 1+ (SMALL) NEGATIVE Final ??? INR WHOLE BLOOD 03/31/2022 2.60 Final Assessment & Plan: Radha was seen today for tcm. Diagnoses and all orders for this visit: Acute cystitis without hematuria - URINALYSIS AUTO DIP - CULTURE URINE; Future - CULTURE URINE - CBC W/DIFF AUTOMATED; Future - COMPREHENSIVE METABOLIC PANEL; Future - CBC W/DIFF AUTOMATED - COMPREHENSIVE METABOLIC PANEL OLIVE (acute kidney injury) ([facility]) - CBC W/DIFF AUTOMATED; Future - COMPREHENSIVE METABOLIC PANEL; Future - CBC W/DIFF AUTOMATED - COMPREHENSIVE METABOLIC PANEL Chronic anticoagulation - PROTIME/INR, FINGERSTICK Current mild episode of major depressive disorder without prior episode ([facility]) - Venlafaxine HCl (VENLAFAXINE XR) 225 MG TABLET SR 24 HR 24 hr tablet; Take 225 mg by mouth daily. Other orders - Cancel: MG/PCCL UDS W CONF; Future - Cancel: MG/PCCL UDS W CONF Discussion & Summary: 1. Medications/DME - Continue current medications. See orders. Will consider change in furosemide based upon lab results. 2. Lab/Diagnostics - See orders. Repeat PT/INR in 1 week. 3. Education - Current treatment discussed and patient education given as appropriate. 4. Referrals - None needed. 5. RTC - 1 month(s) Sanjeev Webster DO R STEWARD/STEWARDESS documented in this encounter Plan of Treatment Upcoming Encounters Date Type Department Care Team (Late st Contact Info) Description 04/14/2024 2:00 PM FLOOR STEWARD/STEWARDESS Office Visit [facility] Multispecialty Care - [facility] [address] [facility], [address] [place] [address] Julio Pulido MD [address] [place] [address] Scheduled Orders Name Type Priority Associated Diagnoses Orde r Schedule CBC W/DIFF AUTOMATED Lab Routine Acute cystitis without hematuria OLIVE (acute kidney injury) Expected: 03/31/2022, Expires: 03/31/2023 documented as of this encounter Goals Goal Patient Goal Type Associated Problems Recent Progress Patient-Stated? Author Health - patient able to perform ADLs independently General On track(2023 9:49 AM CDT) Dianne Corona, RN Note: 12/17/23: Patient stated she is independent with ASL's. Establish Plan for Symptom Monitoring-CHF General On track(2023 11:36 AM FLOOR STEWARD/STEWARDESS) Dianne Corona, RN Note: Patient will recognize [...] Symptom Monitoring-COPD General On track(2023 11:36 AM FLOOR STEWARD/STEWARDESS) Dianne Corona, RN Note: Patient will recognize [...] Symptom Monitoring-DM General On track(2023 4:33 PM FLOOR STEWARD/STEWARDESS) Dianne Corona RN Note: Patient will manage [...] Symptom Monitoring-HTN General On track(2023 4:33 PM FLOOR STEWARD/STEWARDESS) Dianne Corona RN Note: Patient will monitor B/P several times per week , record readings and report to physician or CC if B/P consistently >130/80 Take your medications as prescribed. Follow up with your provider as scheduled. Take your blood pressure at least several times a week if able. documented as of this encounter Procedures Procedure Name Priority Date/Time Associated Diagnosis Comments URINE BACTERIA CULTURE Routine 03/31/2022 10:58 AM FLOOR STEWARD/STEWARDESS Acute cystitis without hematuria PROTHROMBIN TIME, FINGERSTICK Routine 03/31/2022 Chronic anticoagulation URINALYSIS AUTO DIP Routine 03/31/2022 Acute cystitis without hematuria COMPREHENSIVE METABOLIC PANEL Routine 03/31/2022 12:00 AM FLOOR STEWARD/STEWARDESS Acute cystitis without hematuria OLIEV (acute kidney injury) documented in this encounter Results * CULTURE URINE (03/31/2022 10:58 AM FLOOR STEWARD/STEWARDESS) CULTURE RESULT [employer], [place] Comment: ??CULTURE, URINE, ROUTINE ?Micro Number: ?[id number] ??Test Status: ? Final ??Specimen Source: ?? Urine ??Specimen Quality: ??Adequate ??Result: ?No Growth URINE SPECIMEN OBTAINED BY CLEAN CATCH PROCEDURE / Unknown 03/31/2022 10:58 AM FLOOR STEWARD/STEWARDESS 04/01/2022 2:05 AM FLOOR STEWARD/STEWARDESS Narrative Resulting Agency Comment Performing Organization Information: ?Site ID: ?Name: [facility] ?Address: [address] [place] [id number] ?Director: Bradford Mcguire Sanjeev Webster DO MICROBIOLOGY - GENERAL O RDERABLES Final Result Performing Organization Address [facility] Co de Phone Number [facility] - CHARLEE ORDERS [address] [address], * COMPREHENSIVE METABOLIC PANEL (03/31/2022 12:00 AM FLOOR STEWARD/STEWARDESS) 03/31/2022 us Sanjeev Webster DO LABORATORY Final Re sult Performing Organization Address City/[facility]/ZIP Co de Phone Number [facility] ONBASE * PROTIME/INR, FINGERSTICK (03/31/2022) Pathologist [facility] INR WHOLE BLOOD 2.60 MG-S [facility] 03/31/2022 Sanjeev Webster DO LABORATORY Final Re sult Performing Organization Address [facility] Co de Phone Number [address] [address], [place] * URINALYSIS AUTO DIP (03/31/2022) COLOR (U) YELLOW [facility] TRANSPARENCY CLEAR [facility] GLUCOSE (U) NEGATIVE NEGATIVE MG/DL [facility] BILIRUBIN (U) 1+ (SMALL) NEGATIVE [facility] KETONES MG/DL (U) 5 (TRACE) NEGATIVE MG/DL [facility] SPECIFIC GRAVITY (U) 1.025 1.001 - 1.035 [facility] BLOOD (U) NEGATIVE NEGATIVE [facility] U PH 5.5 5.0 - 9.0 [facility] PROTEIN (U) 1+ (30) NEGATIVE mg/dL [facility] UROBILINOGEN 0.2 0.2 - 1.0 EU/dL = mg/dL [facility] NITRITES NEGATIVE NEGATIVE MG/DL [facility] LEUKOCYTES (U) 1+ (SMALL) NEGATIVE [facility] URINE SPECIMEN OBTAINED BY CLEAN CATCH PROCEDURE / Unknown 03/31/2022 us Sanjeev Webster DO URINE [place]ABLES [place] [address], documented in this encounter Visit Diagnoses Diagnosis Acute cystitis without hematuria- Primary Acute cystitis OLIVE (acute kidney injury) ([facility]/H[facility]) Acute kidney failure, unspecified Chronic anticoagulation Encounter for long-term (current) use of anticoagulants Current mild episode of major depressive disorder without prior episode ([facility]) documented in this encounter Additional Health Concerns Assessment Noted Time PHQ-9 Depression Total Score: 3 12/24/19 22 11:48 AM CDT documented as of this encounter Care Teams Molding Plasterer Relationship Specialty Start Date End Date Sanjeev Webster DO [address] [place] [address] PCP - General FAMILY PRACTICE 09/25/20 Dianne Johnson, RN [address] [place] [address] Nail Feeder (Ambulatory) REGISTERED NURSE 08/14/20 documented as of this encounter
--- OUTSIDE RECORDS SUMMARY | 2024-03-15 01:01 | XMS_ITS | Encounter Summary ---
Author Organization [facility] Address [facility] [place] [address] [place] [address] Care Team Providers Care Account Processor Name Role Phone Dianne Johnson RN Unavailable [phone] Sanjeev Webster DO Primary Care Provider + Reason for Visit * Reason Onset Date Comments Results 04/03/2022 Encounter Details Date Type Department Care Team (Late st Contact Info) Description 04/03/2022 Telephone [facility] [place] [id number] [place] [address] Sanjeev Webster DO [facility] [place] [address] Results Social History Tobacco Use [...] Coronavirus/COVID-19? No / Unsure 04/08/2022 2:14 PM BEE BREEDER documented as of this encounter Functional Status [...] Progress Notes * Yenifer Wolf MA - 04/08/2022 2:43 PM CST Patient was seen in office for INR. Patient was instructed and given lab order. Patient v/u BREEDER * Yenifer Wolf MA - 04/08/2022 2:33 PM CSTAddended by: YENIFER WOLF on: 04/08/2022 02:33 PM Modules accepted: Orders BREEDER * Yenifer Wolf MA - 04/08/2022 2:13 PM CST LMOM for izzy and radha to inform them of the message below. BREEDER * Sanjeev Webster DO - 04/08/2022 1:04 PM CST Fine to reach out to Izzy going forward. Pt has to go to [place] to get labs drawn, so if she could do a BMP 1 week prior to our next visit on 05/01/22 at [place], that would be the best. BREEDER * Natalee Brown RN - 04/07/2022 2:50 PM CST Attempted to call the patient, was unable to reach them at this time. Left a message requesting a call back. LL-04/07/22 BREEDER * Sanjeev Webster DO - 04/06/2022 8:23 PM CST For labs on 03/31/22, pt's sodium was still mildly low. Have pt stop furosemide and potassium for now and we will recheck. Call back if she begins having issues with leg swelling, SOB, or fatigue, as well as >3 lb weight gain in 24 hours. Other labs are stable or improving. BREEDER * Dianne Johnson RN - 04/03/2022 4:34 PM CST Images from the original note were not included. Patient stated she had lab work done at [place] on 03/31/22. Contacted Ginger with medical records at [facility]. She will fax results. 04/03: Received lab results from [facility]. Patient had hematology and chemistry lab work done. Copy of results faxed to . BREEDER * Yenifer Wolf MA - 04/03/2022 12:43 PM CST Spoke with patient and informed her of urine cx results. The patient states she had other labs drawn at the hospital and would like to know the results. I do not see any other orders. Please advise. ----- Message from Sanjeev Webster DO sent at 04/02/2022 8:08 AM BEE BREEDER ----- Culture is negative. BREEDER BREEDER documented in this encounter Plan of Treatment Upcoming Encounters Date Type Department Care Team (Late st Contact Info) Description 04/14/2024 2:00 PM BEE BREEDER [facility] Care - [facility] [address] [facility], [address] [place] [phone] Julio Pulido MD 3 [place] [address] documented as of this encounter Goals Goal Patient Goal Type Associated Problems Recent Progress Patient-Stated? Author Health - patient able to perform ADLs independently General On track(2023 9:49 AM CDT) Dianne Corona RN Note: 12/17/23: Patient stated she is independent with ASL's. Establish Plan for Symptom Monitoring-CHF General On track(2023 11:36 AM BEE BREEDER) Dianne Corona RN Note: Patient will recognize [...] Symptom Monitoring-COPD General On track(2023 11:36 AM BEE BREEDER) Dianne Corona RN Note: Patient will recognize [...] Symptom Monitoring-DM General On track(2023 4:33 PM BEE BREEDER) No Johnson, Dianne R, RN Note: Patient [...] Symptom Monitoring-HTN General On track(2023 4:33 PM BEE BREEDER) No Dianne Johnson RN Note: Patient will monitor B/P several times per week , record readings and report to physician or CC if B/P consistently >130/80 Take your medications as prescribed. Follow up with your provider as scheduled. Take your blood pressure at least several times a week if able. documented as of this encounter Visit Diagnoses Diagnosis Low sodium levels- Primary Hyposmolality and/or hyponatremia documented in this encounter Additional Health Concerns Assessment Noted Time PHQ-9 Depression Total Score: 3 12/24/19 22 11:48 AM CDT documented as of this encounter Care Teams Account Processor Relationship Specialty Start Date End Date Sanjeev Webster DO [address] [place] [address] PCP - General FAMILY PRACTICE 09/25/20 Dianne Johnson RN [address] [place] [address] Special Education Associate (Ambulatory) REGISTERED NURSE 08/14/20 documented as of this encounter
--- OUTSIDE RECORDS SUMMARY | 2024-03-15 01:01 | XMS_ITS | Encounter Summary ---
Author Organization [facility] Address On license of [facility] [place] [address] [place] [address] Care Team Providers Care Hotel Assistant General Manager Name Role Phone Dianne Johnson RN Unavailable [phone] Sanjeev Webster DO Primary Care Provider + Encounter Details Date Type Department Care Team (Latest Contact Info) Description 03/18/2022 Travel Social History Tobacco Use Types Packs/Day [...] Coronavirus/COVID-19? No / Unsure 03/18/2022 11:37 AM DEMENTIA PROGRAM DIRECTOR documented as of this encounter Functional [...] st Contact Info) Description 04/14/2024 2:00 PM DEMENTIA PROGRAM DIRECTOR Office Visit [facility] Multispecialty Care - [facility] 3 [facility], [address] [place] [phone] Julio Pulido MD 3 [place] [address] documented as of this encounter Goals Goal Patient Goal Type Associated Problems Recent Progress Patient-Stated? Author Health - patient able to perform ADLs independently General On track(2023 9:49 AM CDT) No Dianne Johnson, RN Note: 12/17/23: Patient stated she is independent with ASL's. Establish Plan for Symptom Monitoring-CHF General On track(2023 11:36 AM DEMENTIA PROGRAM DIRECTOR) Dianne Corona, RN Note: Patient [...] Symptom Monitoring-COPD General On track(2023 11:36 AM DEMENTIA PROGRAM DIRECTOR) Dianne Corona RN Note: Patient [...] Symptom Monitoring-DM General On track(2023 4:33 PM DEMENTIA PROGRAM DIRECTOR) Dianne Corona, DALE Note: Patient will manage [...] Symptom Monitoring-HTN General On track(2023 4:33 PM DEMENTIA PROGRAM DIRECTOR) Dianne Corona RN Note: Patient [...] Rule Out 03/18/2022 03/18/2022 03/18/2022 12:27 PM DEMENTIA PROGRAM DIRECTOR COVID-19 Rule Out 03/18/2022 03/18/2022 03/18/2022 12:57 PM DEMENTIA PROGRAM DIRECTOR COVID-19 Rule Out 03/18/2022 03/18/2022 03/19/2022 1:58 PM DEMENTIA PROGRAM DIRECTOR Assessment Noted Time PHQ-9 Depression Total Score: 3 12/24/19 22 11:48 AM CDT documented as of this encounter Care Teams Hotel Assistant General Manager Relationship Specialty Start Date End Date Sanjeev Webster DO [address] [place] [address] PCP - General FAMILY PRACTICE 09/25/20 Dianne Johnson, RN [address] [place] [address] Desizing Machine Offbearer (Ambulatory) REGISTERED NURSE 08/14/20 documented as of this encounter
--- OUTSIDE RECORDS SUMMARY | 2024-03-15 01:01 | XMS_ITS | Encounter Summary ---
Author Organization [facility] Address [facility] [place] [address] [place] [address] Care Team Providers Care Cryogenics Engineer Name Role Phone Dianne Johnson RN Unavailable [phone] Sanjeev Webster DO Primary Care Provider + Reason for Visit * Reason Comments Anticoagulation Encounter Details Date Type Department Care Team (Late st Contact Info) Description 04/08/2022 2:20 PM RACEBOOK WRITER Allied Health/Nurse Visit [facility] Group Family & Internal Medicine [address] [address] Sanjeev Webster DO [facility] [place] [address] Anticoagulation Social History Tobacco Use [...] Coronavirus/COVID-19? No / Unsure 04/08/2022 2:14 PM RACEBOOK WRITER documented as of this encounter Functional Status [...] st Contact Info) Description 04/14/2024 2:00 PM RACEBOOK WRITER Office Visit [facility] Group Multispecialty Care - [facility] 3 [facility], [address] [place] [phone] Julio Pulido MD 3 [place] [address] documented as of this encounter Goals Goal Patient Goal Type Associated Problems Recent Progress Patient-Stated? Author Health - patient able to perform ADLs independently General On track(2023 9:49 AM CDT) Dianne Corona RN Note: 12/17/23: Patient stated she is independent with ASL's. Establish Plan for Symptom Monitoring-CHF General On track(2023 11:36 AM RACEBOOK WRITER) Dianne Corona, RN Note: Patient will recognize [...] Symptom Monitoring-COPD General On track(2023 11:36 AM RACEBOOK WRITER) Dianne Corona, RN Note: Patient will recognize [...] Symptom Monitoring-DM General On track(2023 4:33 PM RACEBOOK WRITER) Dianne Corona RN Note: Patient will manage [...] Symptom Monitoring-HTN General On track(2023 4:33 PM RACEBOOK WRITER) Dianne Corona RN Note: Patient will monitor [...] Associated Diagnosis Comments PROTHROMBIN TIME, FINGERSTICK Routine 04/08/2022 Chronic anticoagulation COLLECT.CAPILLARY (FNGR,HEEL,EAR) Routine 04/08/2022 Chronic anticoagulation documented in this encounter Results * COLLECT.CAPILLARY (FNGR,HEEL,EAR) (04/08/2022) us Sanjeev Webster DO PROCEDURES-UNRESULTED Fi nal Result * PROTIME/INR, FINGERSTICK (04/08/2022) INR WHOLE BLOOD 1.80 [facility] Comment:Patient states she i s currently on 7mg daily 04/08/2022 us Sanjeev Webster DO LABORATORY Final Re sult Performing Organization Address City/State/[facility] Co de Phone Number [facility] [address] [place] [address], documented in this encounter Visit Diagnoses Diagnosis Chronic anticoagulation- Primary Encounter for long-term (current) use of anticoagulants documented in this encounter Additional Health Concerns Assessment Noted Time PHQ-9 Depression Total Score: 3 12/24/19 22 11:48 AM CDT documented as of this encounter Care Teams Cryogenics Engineer Relationship Specialty Start Date End Date Sanjeev Webster DO [address] [place] [address] PCP - General FAMILY PRACTICE 09/25/20 Dianne Johnson, RN [address] [place] [address] Statistics Manager (Ambulatory) REGISTERED NURSE 08/14/20 documented as of this encounter
--- OUTSIDE RECORDS SUMMARY | 2024-03-15 01:01 | XMS_ITS | Encounter Summary ---
Author Organization [facility] Address [facility]6 [facility] [place] [address] [place] [address] Care Team Providers Care Heating And Blending Supervisor Name Role Phone Dianne Johnson RN Unavailable [phone] Sanjeev Webster DO Primary Care Provider + Reason for Visit * Reason Onset Date Comments Hospital Follow Up 03/19/2022 Admission not ification to [facility] on 03/18/22 and D/C 03/19/22 Encounter Details Date Type Department Care Team (Late st Contact Info) Description 03/19/2022 Patient Outreach [facility] Medical Group Family & Internal Medicine [address] [address] Dianne Johnson, RN [address] [place] [address] Hospital Follow Up (Admission notification to [facility] on 03/18/22 and D/C 03/19/22) Social History Tobacco Use Types Packs/Day Years [...] Coronavirus/COVID-19? No / Unsure 03/18/2022 11:37 AM ETHICS OFFICER documented as of this encounter Functional Status [...] Progress Notes * Dianne Johnson RN - 03/19/2022 7:20 AM CST Images from the original note were not included. Admitted to [facility] yesterday from ED. Attempted to contact patient's nurse this morning but nurse was not available. Will try again after 10:00 am. 03/19: Attempted to contact floor nurse without a response. On hold for over 11 minutes. Will try again later. 03/19: Contacted Paris at [facility]. Stated patient D/C today. Contacted Madeline with [facility] medical records to obtain records from ER and hospitalization. She will fax records to . 03/19: Received records from [facility]. Copy of records faxed to 's office. CS OFFICER documented in this encounter Plan of Treatment Upcoming Encounters Date Type Department Care Team (Late st Contact Info) Description 04/14/2024 2:00 PM ETHICS OFFICER Office Visit [facility] Multispecialty Care - [facility] 3 [facility], [address] [place] [address] Julio Pulido MD 3 [place] [address] documented as of this encounter Goals Goal Patient Goal Type Associated Problems Recent Progress Patient-Stated? Author Health - patient able to perform ADLs independently General On track(2023 9:49 AM CDT) Dianne Corona RN Note: 12/17/23: Patient stated she is independent with ASL's. Establish Plan for Symptom Monitoring-CHF General On track(2023 11:36 AM ETHICS OFFICER) Dianne Corona RN Note: Patient will [...] Symptom Monitoring-COPD General On track(2023 11:36 AM ETHICS OFFICER) Dianne Corona RN Note: Patient will [...] Symptom Monitoring-DM General On track(2023 4:33 PM ETHICS OFFICER) Dianne Corona RN Note: Patient will [...] Symptom Monitoring-HTN General On track(2023 4:33 PM ETHICS OFFICER) Dianne Corona, RN Note: Patient will monitor [...] Rule Out 03/18/2022 03/18/2022 03/19/2022 1:58 PM ETHICS OFFICER Assessment Noted Time PHQ-9 Depression Total Score: 3 12/24/19 22 11:48 AM CDT documented as of this encounter Care Teams Heating And Blending Supervisor Relationship Specialty Start Date End Date Sanjeev Webster DO [address] [place] [address] PCP - General FAMILY PRACTICE 09/25/20 Dianne Johnson, RN [address] [place] [address] Hand Cementer (Ambulatory) REGISTERED NURSE 08/14/20 documented as of this encounter
--- OUTSIDE RECORDS SUMMARY | 2024-03-15 01:01 | XMS_ITS | Encounter Summary ---
Author Organization [facility] Address [facility]. [place], [place] [address] [place] [address] Care Team Providers Care Boiler House Inspector Name Role Phone Dianne Johnson RN Unavailable [phone] Sanjeev Webster DO Primary Care Provider + Encounter Details Date Type Department Care Team (Late st Contact Info) Description 03/18/2022 Orders Only [facility] Family & Internal Medicine [facility] [address] [place] [address] Sanjeev Webster DO [facility] [place] [address] Social History Tobacco Use Types [...] Coronavirus/COVID-19? No / Unsure 03/18/2022 11:37 AM CONTROL CLERK REPAIRS documented as of this encounter Functional Status [...] st Contact Info) Description 04/14/2024 2:00 PM CONTROL CLERK REPAIRS Office Visit [facility] Group Multispecialty Care - [facility] 3 [facility], [address] [place] [phone] Julio Pulido MD 3 [place] [address] documented as of this encounter Goals Goal Patient Goal Type Associated Problems Recent Progress Patient-Stated? Author Health - patient able to perform ADLs independently General On track(2023 9:49 AM CDT) No Dianne Johnson RN Note: 10/10/24: Patient stated she is independent with ASL's. Establish Plan for Symptom Monitoring-CHF General On track(2023 11:36 AM CONTROL CLERK REPAIRS) Dianne Corona RN Note: Patient will recognize [...] Symptom Monitoring-COPD General On track(2023 11:36 AM CONTROL CLERK REPAIRS) Dianne Corona RN Note: Patient will recognize [...] Symptom Monitoring-DM General On track(2023 4:33 PM CONTROL CLERK REPAIRS) Dianne Corona RN Note: Patient will manage [...] Symptom Monitoring-HTN General On track(2023 4:33 PM CONTROL CLERK REPAIRS) No Dianne Johnson RN Note: Patient will [...] Diagnosis Comments CORONAVIRUS (COVID 19) PCR Routine 03/18/2022 12:50 PM CONTROL CLERK REPAIRS Dizziness documented in this encounter Results * CORONAVIRUS (COVID 19) PCR (03/18/2022 12:50 PM CONTROL CLERK REPAIRS) SPEC DESCRIPTION NASAL 03/18/19 7:18 PM [facility] CORONAVIRUS SARS COV 2 PCR (RESP) NEGATIVE NEGATIVE 03/19/2022 1:58 PM [facility] Comment: THE SARS-CoV-2 TEST HAS BEEN AUTHORIZED BY THE FDA UNDER AN EUA FOR USE BY AUTHORIZED LABORATORIES. PERFORMED BY NUCLEIC ACID AMPLIFICATION PCR FIRST TEST YES 03/18/2022 7:18 PM [facility] EMPLOYED IN HEALTHCARE NO 03/18/2022 7:18 PM [facility] SYMPTOMATIC DEFINED BY CDC YES 03/18/2022 7:18 PM [facility] DATE OF SYMPTOM ONSET 2022031503/18/2022 7:18 PM [facility] HOSPITALIZATION STATUS NO 03/18/2022 7:18 PM [facility] PATIENT IN ICU NO 03/18/2022 7:18 PM [facility] RESIDENT OF [facility] NO 03/18/2022 7:18 PM [facility] NASOPHARYNGEAL SWAB / Unknown 03/18/2022 12:50 PM CONTROL CLERK REPAIRS Sanjeev Webster DO MICROBIOLOGY - GENERAL O RDERABLES Final Result [facility] [address] [place] [address], documented in this encounter Visit Diagnoses Diagnosis Dizziness Dizziness and giddiness documented in this encounter Additional Health Concerns Infection Onset Date Last Indicated Resolved Time COVID-19 Rule Out 03/18/2022 03/18/2022 03/18/2022 12:27 PM CONTROL CLERK REPAIRS COVID-19 Rule Out 03/18/2022 03/18/2022 03/18/2022 12:57 PM CONTROL CLERK REPAIRS COVID-19 Rule Out 03/18/2022 03/18/2022 03/19/2022 1:58 PM CONTROL CLERK REPAIRS Assessment Noted Time PHQ-9 Depression Total Score: 3 12/24/19 22 11:48 AM CDT documented as of this encounter Care Teams Boiler House Inspector Relationship Specialty Start Date End Date Sanjeev Webster DO [address] [place] [address] PCP - General FAMILY PRACTICE 09/25/20 Dianne Johnson, RN [address] [place] [address] Rental Sales Representative (Ambulatory) REGISTERED NURSE 08/14/20 documented as of this encounter
--- OUTSIDE RECORDS SUMMARY | 2024-03-15 01:02 | XMS_ITS | Encounter Summary ---
Author Organization [facility] Address [facility]. [place], [place] [address] [place] [address] Care Team Providers Care Cath Lab Manager Name Role Phone Dianne Johnson RN Unavailable [phone] Sanjeev Webster DO Primary Care Provider + Encounter Details Date Type Department Care Team (Late st Contact Info) Description 01/13/2022 Orders Only [facility] Family & Internal Medicine [facility] [address] [place] [address] Sanjeev Webster DO [facility] [place] [address] Social History Tobacco Use Types [...] suspected to have Coronavirus/COVID-19? No / Unsure 01/13/2022 10:29 AM PHARMACIST INTERN documented as of this encounter Functional Status [...] Author Status Yes 11/05/2021 7:00 PM CDT Setphanie Rodriguez R N Active * Do you [...] st Contact Info) Description 04/14/2024 2:00 PM PHARMACIST INTERN Office Visit [facility] Group Multispecialty Care - [facility] 3 [facility], [address] [place] [phone] Julio Pulido MD 3 [place] [address] documented as of this encounter Goals Goal Patient Goal Type Associated Problems Recent Progress Patient-Stated? Author Health - patient able to perform ADLs independently General On track(2023 9:49 AM CDT) No Dianne Johnson RN Note: 10/10/24: Patient stated she is independent with ASL's. Establish Plan for Symptom Monitoring-CHF General On track(2023 11:36 AM PHARMACIST INTERN) Dianne Corona RN Note: Patient will [...] Symptom Monitoring-COPD General On track(2023 11:36 AM PHARMACIST INTERN) Dianne Corona RN Note: Patient will [...] Symptom Monitoring-DM General On track(2023 4:33 PM PHARMACIST INTERN) Dianne Corona RN Note: Patient will [...] Symptom Monitoring-HTN General On track(2023 4:33 PM PHARMACIST INTERN) No Dianne Johnson RN Note: Patient will [...] Diagnosis Comments CORONAVIRUS (COVID 19) PCR Routine 01/13/2022 2:25 PM PHARMACIST INTERN Acute non-recurrent maxillary sinusitis Dizziness Acute nonintractable headache, unspecified headache type documented in this encounter Results * CORONAVIRUS (COVID 19) PCR (01/13/2022 2:25 PM PHARMACIST INTERN) SPEC DESCRIPTION NASAL 01/14/20 22 2:26 PM [facility] CORONAVIRUS SARS COV 2 PCR (RESP) NEGATIVE NEGATIVE 01/14/2022 12:15 AM [facility] Comment: THE SARS-CoV-2 TEST HAS BEEN AUTHORIZED BY THE FDA UNDER AN EUA FOR USE BY AUTHORIZED LABORATORIES. PERFORMED BY NUCLEIC ACID AMPLIFICATION PCR FIRST TEST YES 01/13/2022 2:26 PM [facility] EMPLOYED IN HEALTHCARE NO 01/13/2022 2:26 PM [facility] SYMPTOMATIC DEFINED BY CDC YES 01/13/2022 2:26 PM [facility] DATE OF SYMPTOM ONSET 2022011101/13/2022 2:26 PM [facility] HOSPITALIZATION STATUS NO 01/13/2022 2:26 PM [facility] PATIENT IN ICU NO 01/13/2022 2:26 PM [facility] RESIDENT OF [facility] NO 01/13/2022 2:26 PM PHARMACIST INTERN [facility] NASOPHARYNGEAL SWAB / Unknown 01/13/2022 2:25 PM PHARMACIST INTERN Sanjeev Webster DO MICROBIOLOGY - GENERAL O RDERABLES Final Result [facility] [address] [place] [address], documented in this encounter Visit Diagnoses Diagnosis Acute non-recurrent maxillary sinusitis Dizziness Dizziness and giddiness Acute nonintractable headache, unspecified headache type documented in this encounter Additional Health Concerns Infection Onset Date Last Indicated Resolved Time COVID-19 Rule Out 01/13/2022 01/13/2022 01/13/2022 12:48 PM PHARMACIST INTERN COVID-19 Rule Out 01/13/2022 01/13/2022 01/14/2022 12:15 AM PHARMACIST INTERN Assessment Noted Time PHQ-9 Depression Total Score: 3 12/24/19 22 11:48 AM CDT documented as of this encounter Care Teams Cath Lab Manager Relationship Specialty Start Date End Date Sanjeev Webster DO [address] [place] [address] PCP - General FAMILY PRACTICE 09/25/20 Dianne Johnson, RN [address] [place] [address] Sprayer Automatic Spray Machine (Ambulatory) REGISTERED NURSE 08/14/20 documented as of this encounter
--- OUTSIDE RECORDS SUMMARY | 2024-03-15 01:02 | XMS_ITS | Encounter Summary ---
Author Organization [facility] Address [facility] [place] [address] [place] [address] Care Team Providers Care Manager Advanced Name Role Phone Dianne Johnson RN Unavailable [phone] Sanjeev Webster DO Primary Care Provider + Encounter Details Date Type Department Care Team (Latest Contact Info) Description 01/07/2022 Travel Social History Tobacco Use Types Packs/Day [...] suspected to have Coronavirus/COVID-19? No / Unsure 01/07/2022 8:45 AM CDT documented as of this encounter [...] st Contact Info) Description 04/14/2024 2:00 PM MECHANICAL ENGINEERING INTERN Office Visit [facility] Multispecialty Care - [facility] 3 [facility], [address] [place] [phone] Julio Pulido MD 3 [place] [address] documented as of this encounter Goals Goal Patient Goal Type Associated Problems Recent Progress Patient-Stated? Author Health - patient able to perform ADLs independently General On track(2023 9:49 AM CDT) No Dianne Johnson, RN Note: 12/17/23: Patient stated she is independent with ASL's. Establish Plan for Symptom Monitoring-CHF General On track(2023 11:36 AM MECHANICAL ENGINEERING INTERN) Dianne Corona, RN Note: Patient will recognize [...] Symptom Monitoring-COPD General On track(2023 11:36 AM MECHANICAL ENGINEERING INTERN) Dianne Corona RN Note: Patient will [...] Symptom Monitoring-DM General On track(2023 4:33 PM MECHANICAL ENGINEERING INTERN) Dianne Corona RN Note: Patient will [...] Symptom Monitoring-HTN General On track(2023 4:33 PM MECHANICAL ENGINEERING INTERN) Dianne Corona RN Note: Patient will [...] as of this encounter Care Teams Manager Advanced Relationship Specialty Start Date End Date Sanjeev Webster DO [address] [place] [id number] PCP - General FAMILY PRACTICE 09/25/20 Dianne Johnson, RN [address] [place] [address] Inside Sales Account Executive (Ambulatory) REGISTERED NURSE 08/14/20 documented as of this encounter
--- OUTSIDE RECORDS SUMMARY | 2024-03-15 01:02 | XMS_ITS | Encounter Summary ---
Author Organization [facility] Address [facility]6 [facility] [address] [place] [address] Care Team Providers Care Fitter Machinist Name Role Phone Casey Johnson RN Unavailable [phone] Sanjeev Webster DO Primary Care Provider + Reason for Visit * Reason Onset Date Comments Care Management 01/02/2022 Encounter Details Date Type Department Care Team (Late st Contact Info) Description 01/02/2022 Patient Outreach [facility] Family & Internal Medicine [address] [id number] Casey Johnson, RN [address] [place] [address] Care Management Social History Tobacco Use Types Packs/Day Years Used Date Smoking Tobacco: Never Smokeless Tobacco: Never Comments:non smoker Alcohol Use Standard Drinks/Week Comments Not Currently 0 (1 standard drink = 0.6 oz pur e alcohol) PHQ-2 Answer Date Recorded PHQ-2 Score - If the patient scores above 3, please move on to questions 3-9 2 12/23/2021 Comments No Sex and Gender Information Value Date Recorded Sex Assigned at Not on file Legal Sex Female 11:18 AM CDT Gender Identity Not on file Sexual Orientation Not on file COVID-19 Exposure Response Date Recorded In the last 10 days, have yo u been in contact with someone who was confirmed or suspected to have Coronavirus/COVID-19? No / Unsure 12/23/2021 10:21 AM CDT documented as of this encounter [...] Progress Notes * Casey Johnson RN - 01/02/2022 8:48 AM CDT Chronic Care Management: Appointment reminders: Dr.Fadi Moreno (Confirmed address with 's office) [address] [place] [address] [address] [place], [place] [phone] 01/07/22 at 9:00 am 01/13/22 at 10:40 am Reminded patient of the above appointments. She is aware and she plans on having her friend take her to [place] on 01/07/22. Patient concerns or urgent matters that need addressed: Non identified during this phone call. Patient Status: Patient stated she is on a diet and gets weighed on Wednesdays. Stated she is down to 160 lbs and she is trying to lose weight. She is happy about the results so far. She did not go and weigh in on Thursday of this week. Stated instead she went to [facility] and seen her sister. Stated it was a short visit but it was a nice visit. She hasn't seen her sister since the COVID pandemic and stated she has a close family. Denies any s/s of CHF exacerbation or COPD exacerbation at this time. Encouraged patient to monitor s/s closely and to contact CC at the onset of any changes. Patient verbalizes understanding and appreciates the phone call. Plan of Care: appeals coordinator will continue to follow up by phone, provide resources when needed, educate on disease management, and assess chronic conditions. Patient Goals: Goals Addressed This Visit's Progress ??? Establish Plan for Symptom Monitoring-CHF On track Patient will recognize symptoms of CHF and report to physician should they occur. 1. Daily weight. 2. Report weight gain of > 3 lbs overnight or > 5 lbs in a week 3. Maintain 48 oz fluid restriction- Not on fluid restrictions per patient. 4. Call physician if you experience worsening shortness of breath, edema, fatigue, or cough Take medications as prescribed. Follow up with physician appointments as scheduled. Don't stop taking any of your medications or start taking any medications without discussing with your provider. 04/29: Patient stated she hasn't been weighing herself every morning but will begin weighing and recording readings. Patient stated she is safe to weigh herself without risk of falling. Denies worsening sob, edema, cough or fatigue at this time. Stated she is taking meds as prescribed. 05/24/21: Today's wt= 189# Patient denies any shortness of breath and no edema. 07/29/21: Patient not checking weight at this time. Stated she feels stable enough to check weight. Educated patient on proper way to check weight and report 3 lbs over night. Denies sob, edema or cough at this time. 08/12/21: Encouraged patient to check weight in morning and record readings. Denies worseinng sob, swelling, fatigue or cough. 09/12/21: Patient not checking morning weights. Educated on the importance of checking weights every morning and contacting CC with 3 lb weight gain over night or the onset of changes. 11/21/21: No issues to report at this time. 11/27/21: Denies issues at present. 12/25/21: No issues to report at this time. 01/02/22: No issues to report at this time. Encouraged to contact CC at the onset of any changes. ??? Establish Plan for Symptom Monitoring-COPD On track Patient will recognize symptoms of COPD exacerbation and report to the physician. If severe, patient will seek emergent treatment at [facility] or ER. Notify your provider if you have any of the following symptoms: 1. Worsening shortness of breath at rest or with activity 2. Frequent coughing, productive or nonproductive 3. Wheezing 4. Noisy breathing 5. Tightness in the chest 6. Tiredness 7. Weight loss. Follow up with your provider as scheduled Take your medications as prescribed Do not stop any of your medications without notifying provider 04/29/21: Patient aware of s/s and to report the onset of any changes. Denies any issues at present. 05/24/21: No shortness of breath reported today. Weight stable. 06/21/21: Patient denies any of the above s/s at this time. 07/29/21: Patient denies any of the above s/s at this time. 08/12/21: Patient will continue to monitor s/s and report the onset of any changes to CC. Unless severe and needs emergent treatment. 09/18/21: Stable at this time. 11/21/21: Stable at this time. 11/26/21: Denies issues at present. 12/25/21: Stable at this time. 01/02/22: Patient denies any of the above S/S at this time. Encouraged to monitor closely and contact CC with the onset of any changes. Upcoming Visit Appointments: Future Appointments Date Time Provider Department Center 01/07/2022 9:00 AM Panda Moreno MD [facility] 01/13/2022 10:40 AM Sanjeev Webster DO [id number] 02/17/2022 11:00 AM ALEX INFUSION TREATMENT [facility] ALEX Quality care gaps: Health Maintenance Topic Date Due ??? Diabetes: Retinopathy Eye Exam Never done ??? Medicare Wellness Visit Never done ??? Zoster Vaccines (2 of 3) 02/19/2016 ??? COVID-19 Vaccine (5 - Booster for Pfizer series) 10/24/2021 ??? Hemoglobin A1C 02/28/2022 ??? Lipid Panel 08/29/2022 ??? DTaP, Tdap and Td Vaccines (3 - Td or Tdap) 09/05/2030 ??? DEXA SCAN (GENERAL) Completed ??? Influenza Adult Completed ??? Pneumococcal Vaccine: 65+ Years Completed ??? Hepatitis C Completed ??? Meningococcal Vaccine Aged Out Problem List: Patient Active Problem List Diagnosis ??? Abnormal stress test ??? Chronic anticoagulation ??? Coronary artery disease involving [place] coronary artery of [place] heart without angina pectoris ??? Dyspnea on [...] by mouth once daily (Patient taking differently: Take 325 mg by mouth daily with breakfast.) 90 tablet 0 ??? fluticasone propionate 50 MCG/ACT nasal spray 2 sprays by Nasal route daily. ??? furosemide (LASIX) 20 MG tablet Take 3 tablets (60 mg total) by mouth daily. 30 tablet 3 ??? gabapentin 300 MG capsule Take 1 capsule (300 mg total) by mouth 2 (two) times daily. 180 capsule 0 ??? HYDROcodone-acetaminophen (NORCO) 10-325 MG tablet Take 1 tablet by mouth every 6 (six) hours as needed for Pain. Indications: Chronic Pain Do not take with alprazolam. No further refills until seen in office. 30 tablet 0 ??? lidocaine 5 % Apply pain patch to affected area. Change after 12 hours. 6 patch 0 ??? lisinopril (PRINIVIL) 2.5 MG tablet Take 1 tablet (2.5 mg total) by mouth daily. 30 tablet 3 ??? methIMAzole (TAPAZOLE) 10 MG tablet Take 1 tablet (10 mg total) by mouth daily. 90 tablet 0 ??? metoprolol tartrate (LOPRESSOR) 25 MG tablet Take 0.5 tablets (12.5 mg total) by mouth 2 (two) times daily. 60 tablet 3 ??? omeprazole (PRILOSEC) 20 MG capsule Take 1 capsule by mouth once daily 90 capsule 0 ??? potassium chloride CR (K-TAB) 10 MEQ Tab CR tablet Take 1 tablet (10 mEq total) by mouth daily.30 tablet 2 ??? rosuvastatin (CRESTOR) 5 MG tablet TAKE 1 TABLET BY MOUTH NIGHTLY AT BEDTIME 90 tablet 0 ??? traZODone (DESYREL) Tab 25 mg (50 mg split tab) Take 1 split tab (25 mg total) by mouth nightlyat bedtime for 30 days. 30 split tab 0 ??? VENLAFAXINE XR 150 MG 24 hr capsule Take 1 capsule by mouth once daily (Patient taking differently: Take 150 mg by mouth daily.) 90 capsule 0 ??? warfarin (COUMADIN) 4 MG tablet Take 1 tablet (4 mg total) by mouth daily. 90 tablet 1 ??? warfarin (COUMADIN) 5 MG tablet Take 1 tablet (5 mg total) by mouth daily. 30 tablet 2 No current facility-administered medications for this visit. Chronic Care Management- Time Spent with Patient Time spent with patient (minutes): 9 Time spent performing chart review (minutes): 8 Total time (minutes): 17 CASEY JOHNSON RN I reviewed the patient's status and education provided by CASEY JOHNSON RN. I agree with the findings and recommendations made. Cosigned by Sanjeev Webster DO at 01/03/2022 2:48 PM CDT documented in this encounter Plan of Treatment Upcoming Encounters Date Type Department Care Team (Late st Contact Info) Description 04/14/2024 2:00 PM FLIGHT CONTROL MANAGER Office Visit [facility] Multispecialty Care - [facility] 3 [facility], [address] [place] [address] Julio Pulido MD 3 [place] [address] documented as of this encounter Goals Goal Patient Goal Type Associated Problems Recent Progress Patient-Stated? Author Health - patient able to perform ADLs independently General On track(2023 9:49 AM CDT) Casey Corona RN Note: 12/17/23: Patient stated she is independent with ASL's. Establish Plan for Symptom Monitoring-CHF General On track(2023 11:36 AM FLIGHT CONTROL MANAGER) Casey Corona RN Note: Patient will [...] Symptom Monitoring-COPD General On track(2023 11:36 AM FLIGHT CONTROL MANAGER) Casey Corona RN Note: Patient will [...] Symptom Monitoring-DM General On track(2023 4:33 PM FLIGHT CONTROL MANAGER) Casey Corona RN Note: Patient will [...] Symptom Monitoring-HTN General On track(2023 4:33 PM FLIGHT CONTROL MANAGER) Casey Corona RN Note: Patient will [...] heart failure with preserved ejection fraction (HFpEF) ([facility])- Primary COPD (chronic obstructive pulmonary disease) ([facility]) Chronic airway obstruction, not elsewhere classified documented in this encounter Additional Health Concerns Assessment Noted Time PHQ-9 Depression Total Score: 3 12/24/19 22 11:48 AM CDT documented as of this encounter Care Teams Fitter Machinist Relationship Specialty Start Date End Date Sanjeev Webster DO [address] [place] [id number] PCP - General FAMILY PRACTICE 09/25/20 Casey Johnson, RN [address] [place] [address] Laboratory Coordinator (Ambulatory) REGISTERED NURSE 08/14/20 documented as of this encounter
--- OUTSIDE RECORDS SUMMARY | 2024-03-15 01:02 | XMS_ITS | Encounter Summary ---
Author Organization [facility] Address [facility] [place] [address] [place] [address] Care Team Providers Care Cooler Conveyor Loader Name Role Phone Casey Johnson RN Unavailable [phone] Sanjeev Webster DO Primary Care Provider + Reason for Visit * Reason Onset Date Comments Care Management 02/19/2022 Encounter Details Date Type Department Care Team (Late st Contact Info) Description 02/19/2022 Patient Outreach [facility] Family & Internal Medicine [address] [phone] Casey Johnson, RN [address] [place] [address] Care Management Social History Tobacco [...] Progress Notes * Casey Johnson RN - 02/19/2022 3:57 PM CST Chronic Care Management: Patient concerns or urgent matters that need addressed: None identified during this phone call. Patient Status: Contacted patient today. She is a pleasant 76 year old being followed for [facility] services. She denies any s/s of CHF exacerbation or COPD exacerbations. Denies any s/s of bleeding. Last known INR was done on 01/10/22. Educated patient on the importance of keeping schedule INR as directed by PCP. Statedher car has been broke down and her son fixed it. Stated she can have it done at 's office tomorrow around 10:00 am if office approves. Informed patient that will send a message to office asking if she can get INR done tomorrow. Patient continues to weigh in on Wednesdays. Stated she gained 4 lbs and 4 ounces. Stated she made some pecan tarts and has been eating a lot of them. She plans on losing weight again but she couldn't resist eating them. Patient is unsure if she is taking Warfarin 5 mg or 6 mg in the evening. Stated Izzy fixes her pillplanner and she will know. Informed patient that CC will reach out to Izzy and find out. Patient verbalizes understanding. 02/19/22: Left message for Izzy to return CC phone call. 02/19/22: Separate message sent to 's nursing team regarding getting INR. 02/19/22: Daughter in law Izzy called back and stated patient is taking 6 mg of Warfarin daily. Message sent to nursing team. Plan of Care: costume shop coordinator will continue to follow up by [...] Future Appointments Date Time Provider Department Center 05/02/2022 11:00 AM Panda Moreno MD [facility] [...] Chronic anticoagulation ??? Coronary artery disease involving [place] coronary artery of [place] heart without angina pectoris ??? Dyspnea on [...] needed for anxiety 30 tablet 0 ??? cefdinir (OMNICEF) 300 MG Cap capsule Take 1 capsule (300 mg total) by mouth 2 (two) times daily. 20 capsule 0 ??? Cholecalciferol (VITAMIN D3) 25 MCG (1000 UT) Cap Take 1,000 Units by mouth daily. ??? FEROSUL 325 (65 Fe) MG tablet Take 1 tablet by mouth once daily 90 tablet 0 ??? fluticasone propionate 50 MCG/ACT nasal spray 2 sprays by Nasal route daily. ??? furosemide (LASIX) 20 MG tablet Take 3 tablets (60 mg total) by mouth daily. 90 tablet [...] Patient Time spent with patient (minutes): 10 (Comment: Time spent with patient and calling Izzy ([id number])) Time spent performing chart review (minutes): 12 Total time (minutes): 22 CASEY JOHNSON RN I reviewed the patient's status and education provided by CASEY JOHNSON RN. I agree with the findings and recommendations made. Cosigned by Sanjeev Webster DO at 02/19/2022 10:13 PM FREIGHT CONDUCTOR GHT CONDUCTOR GHT CONDUCTOR documented in this encounter Plan of Treatment Upcoming Encounters Date Type Department Care Team (Late st Contact Info) Description 04/14/2024 2:00 PM FREIGHT CONDUCTOR Office Visit [facility] Mult[facility]pecialty Care - [facility] 3 [facility], [address] [place] [address] Julio Pulido MD [address] [place] [address] documented as of this encounter Goals Goal Patient Goal Type Associated Problems Recent Progress Patient-Stated? Author Health - patient able to perform ADLs independently General On track(2023 9:49 AM CDT) Casey Corona RN Note: 12/17/23: Patient stated she is independent with ASL's. Establish Plan for Symptom Monitoring-CHF General On track(2023 11:36 AM FREIGHT CONDUCTOR) Casey Corona RN Note: Patient will recognize [...] Symptom Monitoring-COPD General On track(2023 11:36 AM FREIGHT CONDUCTOR) Casey Corona RN Note: Patient will recognize [...] Symptom Monitoring-DM General On track(2023 4:33 PM FREIGHT CONDUCTOR) Casey Corona RN Note: Patient will manage [...] Symptom Monitoring-HTN General On track(2023 4:33 PM FREIGHT CONDUCTOR) Casey Corona RN Note: Patient will monitor B/P several times per week , record readings and report to physician or CC if B/P consistently >130/80 Take your medications as prescribed. Follow up with your provider as scheduled. Take your blood pressure at least several times a week if able. documented as of this encounter Visit Diagnoses Diagnosis Diastolic heart failure ([facility])- Primary Unspecified diastolic heart failure COPD (chronic obstructive pulmonary disease) ([facility]) Chronic airway obstruction, not elsewhere classified documented in this encounter Additional Health Concerns Assessment Noted Time PHQ-9 Depression Total Score: 3 12/24/19 22 11:48 AM CDT documented as of this encounter Care Teams Cooler Conveyor Loader Relationship Specialty Start Date End Date Sanjeev Webster DO [address] [place] [id number] PCP - General FAMILY PRACTICE 09/25/20 Casey Johnson, RN [address] [place] [address] Optometrist/Practice Owner (Ambulatory) REGISTERED NURSE 08/14/20 documented as of this encounter
--- OUTSIDE RECORDS SUMMARY | 2024-03-15 01:02 | XMS_ITS | Encounter Summary ---
Author Organization [facility] Address [facility]6 [facility] [place] [address] [place] [address] Care Team Providers Care Stack Yield Engineer Name Role Phone Dianne Johnson RN Unavailable [phone] Sanjeev Webster DO Primary Care Provider + Reason for Visit * Reason Comments Lab (SCAN) Encounter Details Date Type Department Care Team (Latest Contact Info) Description 01/13/2022 Scan HEALTH INFO SRVCS Scanned, Doc Med [...] suspected to have Coronavirus/COVID-19? No / Unsure 01/17/2022 1:30 PM MEDICAL DATA ANALYST documented as of this encounter Functional [...] Contact Info) Description 04/14/2024 2:00 PM MEDICAL DATA ANALYST Office Visit [facility] Multispecialty Care - [facility] 3 [facility], [address] [place] [address] Julio Pulido MD 3 [place] [address] documented as of this encounter Goals Goal Patient Goal Type Associated Problems Recent Progress Patient-Stated? Author Health - patient able to perform ADLs independently General On track(2023 9:49 AM CDT) No Dianne Johnson, RN Note: 12/17/23: Patient stated she is independent with ASL's. Establish Plan for Symptom Monitoring-CHF General On track(2023 11:36 AM MEDICAL DATA ANALYST) Dianne Corona, RN Note: Patient will [...] Monitoring-COPD General On track(2023 11:36 AM MEDICAL DATA ANALYST) Dianne Corona RN Note: Patient will [...] Monitoring-DM General On track(2023 4:33 PM MEDICAL DATA ANALYST) Dianne Corona RN Note: Patient will [...] Monitoring-HTN General On track(2023 4:33 PM MEDICAL DATA ANALYST) Dianne Corona RN Note: Patient will [...] Associated Diagnosis Comments OUTSIDE LAB (SCAN ORDER) 01/13/2022 OUTSIDE LAB (SCAN ORDER) 01/13/2022 OUTSIDE LAB (SCAN ORDER) 01/13/2022 OUTSIDE LAB (SCAN ORDER) 01/13/2022 OUTSIDE LAB (SCAN ORDER) 01/13/2022 OUTSIDE LAB (SCAN ORDER) 01/13/2022 OUTSIDE LAB (SCAN ORDER) 01/13/2022 OUTSIDE LAB (SCAN ORDER) 01/13/2022 OUTSIDE LAB (SCAN ORDER) 01/13/2022 OUTSIDE LAB (SCAN ORDER) 01/13/2022 OUTSIDE LAB (SCAN ORDER) 01/13/2022 OUTSIDE LAB (SCAN ORDER) 01/13/2022 OUTSIDE LAB (SCAN ORDER) 01/13/2022 OUTSIDE LAB (SCAN ORDER) 01/13/2022 OUTSIDE LAB (SCAN ORDER) 01/13/2022 OUTSIDE LAB (SCAN ORDER) 01/13/2022 OUTSIDE LAB (SCAN ORDER) 01/13/2022 OUTSIDE LAB (SCAN ORDER) 01/13/2022 OUTSIDE LAB (SCAN ORDER) 01/13/2022 documented in this encounter Results * OUTSIDE LAB (SCAN) (01/13/2022) 01/13/2022 [facility] Scanned SCANNING Final Resu lt * OUTSIDE LAB (SCAN) (01/13/2022) 01/13/2022 [facility] Scanned SCANNING Final Resu lt * OUTSIDE LAB (SCAN) (01/13/2022) 01/13/2022 [facility] Scanned SCANNING Final Resu lt * OUTSIDE LAB (SCAN) (01/13/2022) 01/13/2022 [facility] Scanned SCANNING Final Resu lt * OUTSIDE LAB (SCAN) (01/13/2022) 01/13/2022 Result [facility] Scanned SCANNING Final Resu lt * OUTSIDE LAB (SCAN) (01/13/2022) 01/13/2022 Result [facility] Scanned SCANNING Final Resu lt * OUTSIDE LAB (SCAN) (01/13/2022) 01/13/2022 Result [facility] Scanned SCANNING Final Resu lt * OUTSIDE LAB (SCAN) (01/13/2022) 01/13/2022 Result [facility] Scanned SCANNING Final Resu lt * OUTSIDE LAB (SCAN) (01/13/2022) 01/13/2022 Result [facility] Scanned SCANNING Final Resu lt * OUTSIDE LAB (SCAN) (01/13/2022) 01/13/2022 Result [facility] Scanned SCANNING Final Resu lt * OUTSIDE LAB (SCAN) (01/13/2022) 01/13/2022 [facility] Scanned SCANNING Final Resu lt * OUTSIDE LAB (SCAN) (01/13/2022) 01/13/2022 Result [facility] Scanned SCANNING Final Resu lt * OUTSIDE LAB (SCAN) (01/13/2022) 01/13/2022 Result [facility] Scanned SCANNING Final Resu lt * OUTSIDE LAB (SCAN) (01/13/2022) 01/13/2022 Result [facility] Scanned SCANNING Final Resu lt * OUTSIDE LAB (SCAN) (01/13/2022) 01/13/2022 Result [facility] Scanned SCANNING Final Resu lt * OUTSIDE LAB (SCAN) (01/13/2022) 01/13/2022 Result [facility] Scanned SCANNING Final Resu lt * OUTSIDE LAB (SCAN) (01/13/2022) 01/13/2022 Result [facility] Scanned SCANNING Final Resu lt * OUTSIDE LAB (SCAN) (01/13/2022) 01/13/2022 Result [facility] Scanned SCANNING Final Resu lt * OUTSIDE LAB (SCAN) (01/13/2022) 01/13/2022 [facility] Scanned SCANNING Final Resu lt documented in this encounter Visit Diagnoses Not on filedocumented in this encounter Additional Health Concerns Infection Onset Date Last Indicated Resolved Time COVID-19 Rule Out 01/13/2022 01/13/2022 01/13/2022 12:48 PM MEDICAL DATA ANALYST COVID-19 Rule Out 01/13/2022 01/13/2022 01/14/2022 12:15 AM MEDICAL DATA ANALYST Assessment Noted Time PHQ-9 Depression Total Score: 3 12/24/19 22 11:48 AM CDT documented as of this encounter Care Teams Stack Yield Engineer Relationship Specialty Start Date End Date Sanjeev Webster DO [address] [place] [address] [id number] PCP - General FAMILY PRACTICE 09/25/20 Dianne Johnson, RN [address] [place] [address] Electronic Funds Transfer Coordinator (Ambulatory) REGISTERED NURSE 08/14/20 documented as of this encounter
--- OUTSIDE RECORDS SUMMARY | 2024-03-15 01:02 | XMS_ITS | Encounter Summary ---
Author Organization [facility] Address [facility]6 [facility] [place] [place] [address] [place] [address] Care Team Providers Care Opthalmic Tech Name Role Phone Dianne Johnson RN Unavailable [phone] Sanjeev Webster DO Primary Care Provider + Encounter Details Date Type Department Care Team (Latest Contact Info) Description 01/13/2022 - 01/13/2022 11:59 PM OFFICE MACHINE INSPECTOR Hospital Encounter [facility] [address] [address] Sanjeev Webster DO [address] [place] [address] Discharge Disposition: Home or Self [...] Coronavirus/COVID-19? No / Unsure 01/13/2022 10:29 AM OFFICE MACHINE INSPECTOR documented as of this encounter Functional Status [...] ronic obstructive pulmonary disease, unspecified COPD type ([facility]/HCC [facility]) Inhale 2 puffs into the lungs every 6 (six) hours as needed for Wheezing. 18 g 1 10/10/2021 3 ALPRAZolam (XANAX) 0.25 MG tabletIndications:Anx iety Take 1 tablet by mouth twice daily as needed for anxiety 30 tablet 01/13/2022 2 amoxicillin-clavulana te (AUGMENTIN) 875-125 MG tabletIndications:Acu te non-recurrent maxillary sinusitis Take 1 tablet (875 mg total) by mouth 2 (two) times daily for 10 days. 20 tablet 01/13/2022 2 FEROSUL 325 (65 Fe) MG tabletIndications:Iro n deficiency anemia, unspecified iron deficiency anemia type Take 1 tablet by mouth once daily 90 tablet 10/07/2021 2 fluticasone propionate 50 MCG/ACT nasal spray 2 sprays by Nasal route daily. 3 furosemide (LASIX) 20 MG tablet Take 3 tablets (60 mg total) by mouth daily. 30 tablet 3 11/13/2021 2 gabapentin 300 MG capsuleIndications:Ba ck pain Take 1 capsule (300 mg total) by mouth 2 (two) times daily. 180 capsule 07/16/2020 2 HYDROcodone-acetamino phen (NORCO) 10-325 MG tabletIndications:Chr onic Pain Take 1 tablet by mouth every 6 (six) hours as needed for Pain. Indications: Chronic Pain Do not take with alprazolam. 30 tablet 01/13/2022 2 lidocaine 5 %Indications:Neck pain Apply pain patch to affected area. Change after 12 hours. 6 patch 08/30/2020 3 lisinopril (PRINIVIL) 20 MG tabletIndications:Hyp ertension associated with type 2 diabetes mellitus (CMS/HCC HHS/HCC) Take 1 tablet (20 mg total) by mouth daily. 30 tablet 2 01/13/2022 3 methIMAzole (TAPAZOLE) 10 MG tabletIndications:Hyp erthyroidism Take 1 tablet (10 mg total) by mouth 2 (two) times daily. 180 tablet 3 01/07/2022 2 metoprolol tartrate (LOPRESSOR) 25 MG tablet Take 0.5 tablets (12.5 mg total) by mouth 2 (two) times daily. 60 tablet 3 11/05/2021 3 omeprazole (PRILOSEC) 20 MG capsuleIndications:GE RD (gastroesophageal reflux disease) Take 1 capsule by mouth once daily 90 capsule 10/07/2021 2 potassium chloride CR (K-TAB) 10 MEQ Tab CR tabletIndications:Hyp okalemia Take 1 tablet (10 mEq total) by mouth daily. 30 tablet 2 11/14/2021 2 rosuvastatin (CRESTOR) 5 MG tabletIndications:Hyp erlipidemia, unspecified hyperlipidemia type TAKE 1 TABLET BY MOUTH NIGHTLY AT BEDTIME 90 tablet 12/09/2021 3 VENLAFAXINE XR 150 MG 24 hr capsuleIndications:Di abetic polyneuropathy associated with type 2 diabetes mellitus (CMS/HCC HHS/HCC),Mild episode of recurrent major depressive disorder (CMS/HCC) Take 1 capsule by mouth once daily 90 capsule 06/17/2021 2 warfarin (COUMADIN) 6 MG tabletIndications:Chr onic anticoagulation Take 1 tablet (6 mg total) by mouth daily. 30 tablet 2 01/13/2022 3 documented as of this encounter Plan of Treatment Upcoming Encounters Date Type Department Care Team (Late st Contact Info) Description 04/14/2024 2:00 PM OFFICE MACHINE INSPECTOR Office Visit [facility] Multispecialty Care - [facility] [address] [facility], [address] [place] [phone] Julio Pulido MD 3 [place] [address] documented as of this encounter Goals Goal Patient Goal Type Associated Problems Recent Progress Patient-Stated? Author Health - patient able to perform ADLs independently General On track(2023 9:49 AM CDT) No Dianne Johnson, RN Note: 12/17/23: Patient stated she is independent with ASL's. Establish Plan for Symptom Monitoring-CHF General On track(2023 11:36 AM OFFICE MACHINE INSPECTOR) Dianne Corona, RN Note: Patient will [...] Symptom Monitoring-COPD General On track(2023 11:36 AM OFFICE MACHINE INSPECTOR) Dianne Corona RN Note: Patient will [...] Symptom Monitoring-DM General On track(2023 4:33 PM OFFICE MACHINE INSPECTOR) Dianne Corona, RN Note: Patient will [...] Symptom Monitoring-HTN General On track(2023 4:33 PM OFFICE MACHINE INSPECTOR) Dianne Corona RN Note: Patient will [...] Rule Out 01/13/2022 01/13/2022 01/13/2022 12:48 PM OFFICE MACHINE INSPECTOR COVID-19 Rule Out 01/13/2022 01/13/2022 01/14/2022 12:15 AM OFFICE MACHINE INSPECTOR Assessment Noted Time PHQ-9 Depression Total Score: 3 12/24/19 11:48 AM CDT documented as of this encounter Care Teams Opthalmic Tech Relationship Specialty Start Date End Date Sanjeev Webster DO [address] [place] [address] PCP - General FAMILY PRACTICE 09/25/20 Dianne Johnson, RN [address] [place] [address] Perianesthesia Manager (Ambulatory) REGISTERED NURSE 08/14/20 documented as of this encounter
--- OUTSIDE RECORDS SUMMARY | 2024-03-15 01:02 | XMS_ITS | Encounter Summary ---
Author Organization [facility] Address [facility] [place] [address] [place] [address] Care Team Providers Care Filter Tender Jelly Name Role Phone Dianne Johnson RN Unavailable [phone] Sanjeev Webster DO Primary Care Provider + Encounter Details Date Type Department Care Team (Latest Contact Info) Description 12/23/2021 Travel Social History Tobacco Use Types Packs/Day [...] st Contact Info) Description 04/14/2024 2:00 PM BACK MAKER Office Visit [facility] Multispecialty Care - [facility] 3 [facility], [address] [place] [phone] Julio Pulido MD 3 [place] [address] documented as of this encounter Goals Goal Patient Goal Type Associated Problems Recent Progress Patient-Stated? Author Health - patient able to perform ADLs independently General On track(2023 9:49 AM CDT) No Dianne Johnson, RN Note: 12/17/23: Patient stated she is independent with ASL's. Establish Plan for Symptom Monitoring-CHF General On track(2023 11:36 AM BACK MAKER) Dianne Corona, RN Note: Patient will recognize [...] Symptom Monitoring-COPD General On track(2023 11:36 AM BACK MAKER) Dianne Corona RN Note: Patient will [...] Symptom Monitoring-DM General On track(2023 4:33 PM BACK MAKER) Dianne Corona RN Note: Patient will [...] Symptom Monitoring-HTN General On track(2023 4:33 PM BACK MAKER) Dianne Corona RN Note: Patient will [...] documented as of this encounter Care Teams Filter Tender Jelly Relationship Specialty Start Date End Date Sanjeev Webster DO [address] [place] [address] PCP - General FAMILY PRACTICE 09/25/20 Dianne Johnson, RN [address] [place] [address] Machine Inspector (Ambulatory) REGISTERED NURSE 08/14/20 documented as of this encounter
--- OUTSIDE RECORDS SUMMARY | 2024-03-15 01:02 | XMS_ITS | Encounter Summary ---
Author Organization [facility] Address [facility]6 [facility]. [place], [place] [address] [place] [address] Care Team Providers Care Paint Stockman Name Role Phone Dianne Johnson RN Unavailable [phone] Sanjeev Webster DO Primary Care Provider + Encounter Details Date Type Department Care Team (Late st Contact Info) Description 02/20/2022 1:20 PM CAUSTIC STRENGTH INSPECTOR Laboratory Only [facility] Family & Internal Medicine [address] [address] Sanjeev Webster DO [address] [place] [address] Social History Tobacco Use Types Packs/Day [...] Coronavirus/COVID-19? No / Unsure 02/20/2022 1:32 PM CAUSTIC STRENGTH INSPECTOR documented as of this encounter Functional [...] Author Status No 11/05/2021 7:00 PM CDT Stephnaie Rodriguez R N Active * Because of [...] Progress Notes * Sanjeev Webster DO - 02/20/2022 1:20 PM CST Mildly below goal; clarify current dosing please. TIC STRENGTH INSPECTOR documented in this encounter Plan of Treatment Upcoming Encounters Date Type Department Care Team (Late st Contact Info) Description 04/14/2024 2:00 PM CAUSTIC STRENGTH INSPECTOR Office Visit [facility] Multispecialty Care - [address], [address] [place] [phone] Julio Pulido MD 3 [place] [address] documented as of this encounter Goals Goal Patient Goal Type Associated Problems Recent Progress Patient-Stated? Author Health - patient able to perform ADLs independently General On track(2023 9:49 AM CDT) Dianne Corona RN Note: 12/17/23: Patient stated she is independent with ASL's. Establish Plan for Symptom Monitoring-CHF General On track(2023 11:36 AM CAUSTIC STRENGTH INSPECTOR) Dianne Corona RN Note: Patient will [...] Symptom Monitoring-COPD General On track(2023 11:36 AM CAUSTIC STRENGTH INSPECTOR) Dianne Corona RN Note: Patient will [...] Symptom Monitoring-DM General On track(2023 4:33 PM CAUSTIC STRENGTH INSPECTOR) Dianne Corona RN Note: Patient will [...] Symptom Monitoring-HTN General On track(2023 4:33 PM CAUSTIC STRENGTH INSPECTOR) Dianne Corona RN Note: Patient will [...] Associated Diagnosis Comments PROTHROMBIN TIME, FINGERSTICK Routine 02/20/2022 Chronic anticoagulation COLLECT.CAPILLARY (FNGR,HEEL,EAR) Routine 02/20/2022 Chronic anticoagulation documented in this encounter Results * COLLECT.CAPILLARY (FNGR,HEEL,EAR) (02/20/2022) us Sanjeev Webster DO PROCEDURES-UNRESULTED Fi nal Result * PROTIME/INR, FINGERSTICK (02/20/2022) INR WHOLE BLOOD 2.20 MG-S [facility] 02/20/2022 us Sanjeev Webster DO LABORATORY Final Re sult [facility] [address] [place] [address], documented in this encounter Visit Diagnoses Diagnosis Chronic anticoagulation- Primary Encounter for long-term (current) use of anticoagulants documented in this encounter Additional Health Concerns Assessment Noted Time PHQ-9 Depression Total Score: 3 12/24/19 22 11:48 AM CDT documented as of this encounter Care Teams Paint Stockman Relationship Specialty Start Date End Date Sanjeev Webster DO [address] [place] [address] PCP - General FAMILY PRACTICE 09/25/20 Dianne Johnson, RN [facility] [place] [address] File Clerk (Ambulatory) REGISTERED NURSE 08/14/20 documented as of this encounter
--- OUTSIDE RECORDS SUMMARY | 2024-03-15 01:02 | XMS_ITS | Encounter Summary ---
Author Organization [facility] Address [facility]6 [facility] [place] [address] [place] [address] Care Team Providers Care Nursing Student Name Role Phone Dianne Johnson RN Unavailable [phone] Sanjeev Webster DO Primary Care Provider + Encounter Details Date Type Department Care Team (Latest Contact Info) Description 01/17/2022 Travel Social History Tobacco Use Types Packs/Day [...] Coronavirus/COVID-19? No / Unsure 01/17/2022 1:30 PM VICE PRESIDENT BIOSTATISTICS documented as of this encounter Functional Status [...] Info) Description 04/14/2024 2:00 PM VICE PRESIDENT BIOSTATISTICS Office Visit [facility] Multispecialty Care - [facility] 3 [facility], [address] [place] [phone] Julio Pulido MD 3 [place] [address] documented as of this encounter Goals Goal Patient Goal Type Associated Problems Recent Progress Patient-Stated? Author Health - patient able to perform ADLs independently General On track(2023 9:49 AM CDT) No Dianne Johnson, RN Note: 12/17/23: Patient stated she is independent with ASL's. Establish Plan for Symptom Monitoring-CHF General On track(2023 11:36 AM VICE PRESIDENT BIOSTATISTICS) Dianne Corona, RN Note: Patient will recognize [...] General On track(2023 11:36 AM VICE PRESIDENT BIOSTATISTICS) Dianne Corona RN Note: Patient will recognize [...] General On track(2023 4:33 PM VICE PRESIDENT BIOSTATISTICS) Dianne Corona, DALE Note: Patient will manage [...] General On track(2023 4:33 PM VICE PRESIDENT BIOSTATISTICS) Dianne Corona RN Note: Patient will monitor [...] as of this encounter Care Teams Nursing Student Relationship Specialty Start Date End Date Sanjeev Webster DO [address] [place] [id number] PCP - General FAMILY PRACTICE 09/25/20 Dianne Johnson, RN [address] [place] [address] Telephone Surveyor (Ambulatory) REGISTERED NURSE 08/14/20 documented as of this encounter
--- OUTSIDE RECORDS SUMMARY | 2024-03-15 01:02 | XMS_ITS | Encounter Summary ---
Author Organization [facility] Address [facility]6 [facility] [place] [address] [place] [address] Care Team Providers Care Seismic Engineer Name Role Phone Dianne Johnson RN Unavailable [phone] Sanjeev Webster DO Primary Care Provider + Encounter Details Date Type Department Care Team (Latest Contact Info) Description 01/10/2022 Travel Social History Tobacco Use Types Packs/Day [...] suspected to have Coronavirus/COVID-19? No / Unsure 01/10/2022 10:49 AM CDT documented as of this encounter [...] st Contact Info) Description 04/14/2024 2:00 PM CNC SPECIALIST Office Visit [facility] Multispecialty Care - [facility] 3 [facility], [address] [place] [phone] Julio Pulido MD 3 [place] [address] documented as of this encounter Goals Goal Patient Goal Type Associated Problems Recent Progress Patient-Stated? Author Health - patient able to perform ADLs independently General On track(2023 9:49 AM CDT) No Dianne Johnson, RN Note: 12/17/23: Patient stated she is independent with ASL's. Establish Plan for Symptom Monitoring-CHF General On track(2023 11:36 AM CNC SPECIALIST) Dianne Corona, RN Note: Patient will [...] Symptom Monitoring-COPD General On track(2023 11:36 AM CNC SPECIALIST) Dianne Corona RN Note: Patient will [...] Symptom Monitoring-DM General On track(2023 4:33 PM CNC SPECIALIST) Dianne Corona RN Note: Patient will [...] Symptom Monitoring-HTN General On track(2023 4:33 PM CNC SPECIALIST) Dianne Corona RN Note: Patient will [...] documented as of this encounter Care Teams Seismic Engineer Relationship Specialty Start Date End Date Sanjeev Webster DO [address] [place] [address] PCP - General FAMILY PRACTICE 09/25/20 Dianne Johnson, RN [address] [place] [address] Die Sinker (Ambulatory) REGISTERED NURSE 08/14/20 documented as of this encounter
--- OUTSIDE RECORDS SUMMARY | 2024-03-15 01:02 | XMS_ITS | Encounter Summary ---
Author Organization [facility] Address [facility]6 [facility] [address] [place] [address] Care Team Providers Care Bodybuilder Name Role Phone Dianne Johnson RN Unavailable [phone] Sanjeev Webster DO Primary Care Provider + Reason for Visit * Reason Onset Date Comments Lab Results 01/14/2022 Encounter Details Date Type Department Care Team (Late st Contact Info) Description 01/14/2022 Telephone [facility] Family & Internal Medicine [address] [address] Sanjeev Webster DO [facility] [place] [address] Lab Results Social History Tobacco [...] Coronavirus/COVID-19? No / Unsure 01/13/2022 10:29 AM TIN CUTTER documented as of this encounter Functional Status [...] Progress Notes * Trixie Jose MA - 01/14/2022 11:16 AM CST Patient informed of results. F/u appt 01/17/22 and patient is aware. tn CUTTER * Trixie Jose MA - 01/14/2022 11:15 AM CST ----- Message from Sanjeev Webster DO sent at 01/14/2022 8:03 AM TIN CUTTER ----- COVID PCR is negative. Will see pt later this week as scheduled. CUTTER documented in this encounter Plan of Treatment Upcoming Encounters Date Type Department Care Team (Late st Contact Info) Description 04/14/2024 2:00 PM TIN CUTTER Office Visit [facility] Group Multispecialty Care - [facility] 3 [facility], [address] [place] [address] Julio Pulido MD 3 [place] [address] documented as of this encounter Goals Goal Patient Goal Type Associated Problems Recent Progress Patient-Stated? Author Health - patient able to perform ADLs independently General On track(2023 9:49 AM CDT) Dianne Corona, RN Note: 12/17/23: Patient stated she is independent with ASL's. Establish Plan for Symptom Monitoring-CHF General On track(2023 11:36 AM TIN CUTTER) Dianne Corona, RN Note: Patient will recognize [...] Symptom Monitoring-COPD General On track(2023 11:36 AM TIN CUTTER) Dianne Corona, RN Note: Patient will recognize [...] Symptom Monitoring-DM General On track(2023 4:33 PM TIN CUTTER) Dianne Corona RN Note: Patient will [...] Symptom Monitoring-HTN General On track(2023 4:33 PM TIN CUTTER) Dianne Corona, RN Note: Patient will [...] Resolved Time COVID-19 Rule Out 01/13/2022 01/13/2022 01/14/2022 12:15 AM TIN CUTTER Assessment Noted Time PHQ-9 Depression Total Score: 3 12/24/19 22 11:48 AM CDT documented as of this encounter Care Teams Bodybuilder Relationship Specialty Start Date End Date Sanjeev Webster DO [address] [place] [address] PCP - General FAMILY PRACTICE 09/25/20 Dianne Johnson RN [address] [place] [address] Manager Of Pharmacy (Ambulatory) REGISTERED NURSE 08/14/20 documented as of this encounter
--- OUTSIDE RECORDS SUMMARY | 2024-03-15 01:02 | XMS_ITS | Encounter Summary ---
Author Organization [facility] Address [facility] [place] [address] [place] [address] Care Team Providers Care Lumber Loader Name Role Phone Dianne Johnson RN Unavailable [phone] Sanjeev Webster DO Primary Care Provider + Encounter Details Date Type Department Care Team (Latest Contact Info) Description 01/13/2022 Travel Social History Tobacco Use Types Packs/Day [...] Coronavirus/COVID-19? No / Unsure 01/13/2022 10:29 AM EQUIPMENT MONITOR PHOTOTYPESETTING documented as of this encounter Functional Status [...] st Contact Info) Description 04/14/2024 2:00 PM EQUIPMENT MONITOR PHOTOTYPESETTING Office Visit [facility] Multispecialty Care - [facility] 3 [facility], [address] [place] [id number] Julio Pulido MD 3 [place] [address] documented as of this encounter Goals Goal Patient Goal Type Associated Problems Recent Progress Patient-Stated? Author Health - patient able to perform ADLs independently General On track(2023 9:49 AM CDT) No Dianne Johnson, RN Note: 12/17/23: Patient stated she is independent with ASL's. Establish Plan for Symptom Monitoring-CHF General On track(2023 11:36 AM EQUIPMENT MONITOR PHOTOTYPESETTING) Dianne Corona, RN Note: Patient will recognize [...] Symptom Monitoring-COPD General On track(2023 11:36 AM EQUIPMENT MONITOR PHOTOTYPESETTING) Dianne Corona RN Note: Patient will recognize [...] Symptom Monitoring-DM General On track(2023 4:33 PM EQUIPMENT MONITOR PHOTOTYPESETTING) Dianne Corona, DALE Note: Patient will manage [...] Symptom Monitoring-HTN General On track(2023 4:33 PM EQUIPMENT MONITOR PHOTOTYPESETTING) Dianne Corona RN Note: Patient will monitor [...] Rule Out 01/13/2022 01/13/2022 01/13/2022 12:48 PM EQUIPMENT MONITOR PHOTOTYPESETTING COVID-19 Rule Out 01/13/2022 01/13/2022 01/14/2022 12:15 AM EQUIPMENT MONITOR PHOTOTYPESETTING Assessment Noted Time PHQ-9 Depression Total Score: 3 12/24/19 11:48 AM CDT documented as of this encounter Care Teams Lumber Loader Relationship Specialty Start Date End Date Sanjeev Webster DO [address] [place] [address] PCP - General FAMILY PRACTICE 09/25/20 Dianne Johnson, RN [address] [place] [address] Mexican Food Cook (Ambulatory) REGISTERED NURSE 08/14/20 documented as of this encounter
--- OUTSIDE RECORDS SUMMARY | 2024-03-15 01:02 | XMS_ITS | Encounter Summary ---
Author Organization [facility] Address [address] [place] [address]. [place] [address] [place] [address] Care Team Providers Care Reproduction Specialist Name Role Phone Dianne Johnson RN Unavailable [phone] Sanjeev Webster DO Primary Care Provider + Reason for Visit * Reason Onset Date Comments Appointment Request 12/26/2021 Encounter Details Date Type Department Care Team (Late st Contact Info) Description 12/26/2021 Telephone [facility] Multispecialty Care - [facility] 3 [facility], [address] [place] [address] Drew Padilla MD [address] [place] [address] Appointment Request Social History Tobacco Use Types [...] Yes 11/05/2021 7:00 PM CDT Stephanie Rodriguez A, R N Active * Do you have difficulty dressing or bathing? Answer Date of Assessment Author Status No 11/05/2021 7:00 PM CDT Stephanie Rodriguez A, R N Active * Because of a [...] No 11/05/2021 7:00 PM CDT Stephanie Rodriguez A, R N Active documented in this encounter Progress Notes * Zoey Chairez - 12/26/2021 7:53 AM CDT PCP called today and said Radha can not make it to her appt today. Please call pt to reschedule. documented in this encounter Plan of Treatment Upcoming Encounters Date Type Department Care Team (Late st Contact Info) Description 04/14/2024 2:00 PM BARKER OPERATOR Office Visit [facility] Medical Group Multispecialty Care - [address], [address] [place] [address] Julio Pulido MD [address] [place] [address] documented as of this encounter Goals Goal Patient Goal Type Associated Problems Recent Progress Patient-Stated? Author Health - patient able to perform ADLs independently General On track(2023 9:49 AM CDT) Dianne Corona, RN Note: 12/17/23: Patient stated she is independent with ASL's. Establish Plan for Symptom Monitoring-CHF General On track(2023 11:36 AM BARKER OPERATOR) Dianne Corona, RN Note: Patient will [...] Symptom Monitoring-COPD General On track(2023 11:36 AM BARKER OPERATOR) Dianne Corona, RN Note: Patient will [...] Symptom Monitoring-DM General On track(2023 4:33 PM BARKER OPERATOR) Dianne Corona RN Note: Patient will [...] Symptom Monitoring-HTN General On track(2023 4:33 PM BARKER OPERATOR) No Dianne Johnson RN Note: Patient [...] documented as of this encounter Care Teams Reproduction Specialist Relationship Specialty Start Date End Date Sanjeev Webster DO [address] [place] [address] PCP - General FAMILY PRACTICE 09/25/20 Dianne Johnson, RN [address] [place] [address] Or Director (Ambulatory) REGISTERED NURSE 08/14/20 documented as of this encounter
--- OUTSIDE RECORDS SUMMARY | 2024-03-15 01:02 | XMS_ITS | Encounter Summary ---
Author Organization [facility] Address [facility] [place] [address] [place] [address] Care Team Providers Care Director Of Search Engine Marketing Name Role Phone Dianne Johnson RN Unavailable [phone] Sanjeev Webster DO Primary Care Provider + Reason for Visit * Reason Comments Follow Up Hyperthyroidism Hyperparathyroidism Osteoporosis * Consultation (Routine) - Closed Specialty Diagnoses / Procedures Referred By Contivett t Referred To Contact ENDOCRINOLOGY Diagnoses Hyperthyroidism Secondary hyperparathyroidism ([facility]/HCC [facility]) Age-related osteoporosis without current pathological fracture Procedures OFFICE/OUTPT VISIT,NEW,LEVL III OFFICE/OUTPT VISIT,NEW,LEVL IV OFFICE/OUTPT VISIT,NEW,LEVL V OFFICE/OUTPT VISIT,EST,LEVL III OFFICE/OUTPT VISIT,EST,LEVL IV OFFICE/OUTPT VISIT,EST,LEVL V Sanjeev Webster DO [address] [place] [address] Phone: tel: fax: Panda Moreno MD Referral ID Status Reason Start Date Expiration Date Visits Re quested Visits Authorized [id number] Closed 01/05/2022 01/06/2023 12 12 Encounter Details Date Type Department Care Team (Latest Contact Info) Description 01/07/2022 9:00 AM CDT Office Visit [facility] Diabetes and Endocrinology - [place] [address] [facility] [place] [address] [place] [address] Panda Moreno MD Follow Up; Hyperthyroidism; Hyperparathyroidism; Osteoporosis Social History Tobacco Use Types Packs/Day Years [...] Sign Reading Time Taken Comments Blood Pressure 111/64 01/07/2022 8:53 AM CDT Pulse 55 01/07/2022 8:53 AM CDT Temperature 36.2 ??C (97.2 ??F) 01/07/2022 8:53 AM CD T Respiratory Rate 20 01/07/2022 8:53 AM CDT Oxygen Saturation 98% 01/07/2022 8:53 AM CDT Inhaled Oxygen Concentration - - Weight 75.3 kg (166 lb) 01/07/2022 8:53 AM CDT Height 165.1 cm (5' 5 ) 01/07/2022 8:53 AM CDT Body Mass Index 27.62 01/07/2022 8:53 AM CDT documented in this encounter Functional [...] Yes 11/05/2021 7:00 PM CDT Stephanie Rodriguez, Bianca N Active * Do you have difficulty [...] documented in this encounter Progress Notes * Panda Moreno MD - 01/07/2022 9:00 AM CDT The reason for Visit: Follow Up, Hyperthyroidism, Hyperparathyroidism, and Osteoporosis PCP: Sanjeev Webster, Summary Radhachago Huynh is a very pleasant 76-year-old female Known with DM HLP HTN COPD CAD A-fib LBBBOSA HI dementia She was referred for hypercalcemia History of Present Illness this visit Hypercalcemia Hx dates back to 2019 at least where her CMP showed mildly high calcium. Denies previous knowledge of it. Family hx: negative . Current medications of significance : lasix, Amiodarone Current symptoms : Reports a Fracture in 2020: Colles' fracture Denies Loss of height Reports Fatigue and weakness, Cognitive dysfunction ( memory loss) ,Dry skin and hair + weight loss Medications: Current Outpatient Medications: ??? acetaminophen (TYLENOL) 500 MG tablet, Take 500 mg by mouth daily as needed., Disp: , Rfl: ??? albuterol sulfate HFA 108 (90 Base) MCG/ACT inhaler, Inhale 2 puffs into the lungs every 6 (six) hours as needed for Wheezing., Disp: 18 g, Rfl: 1 ??? ALPRAZolam (XANAX) 0.25 MG tablet, Take 1 tablet by mouth twice daily as needed for anxiety, Disp: 30 tablet, Rfl: 0 ??? Cholecalciferol (VITAMIN D3) 25 MCG (1000 UT) Cap, Take 1,000 Units by mouth daily., Disp: , Rfl: ??? FEROSUL 325 (65 Fe) MG tablet, Take 1 tablet by mouth once daily (Patient taking differently: Take 325 mg by mouth daily with breakfast.), Disp: 90 tablet, Rfl: 0 ??? fluticasone propionate 50 MCG/ACT nasal spray, 2 sprays by Nasal route daily., Disp: , Rfl: ??? furosemide (LASIX) 20 MG tablet, Take 3 tablets (60 mg total) by mouth daily., Disp: 30 tablet,Rfl: 3 ??? gabapentin 300 MG capsule, Take 1 capsule (300 mg total) by mouth 2 (two) times daily., Disp: 180 capsule, Rfl: 0 ??? HYDROcodone-acetaminophen (NORCO) 10-325 MG tablet, Take 1 tablet by mouth every 6 (six) hours as needed for Pain. Indications: Chronic Pain Do not take with alprazolam. No further refills until seen in office., Disp: 30 tablet, Rfl: 0 ??? lidocaine 5 %, Apply pain patch to affected area. Change after 12 hours., Disp: 6 patch, Rfl: 0 ??? lisinopril (PRINIVIL) 2.5 MG tablet, Take 1 tablet (2.5 mg total) by mouth daily., Disp: 30 tablet, Rfl: 3 ??? methIMAzole (TAPAZOLE) 10 MG tablet, Take 1 tablet (10 mg total) by mouth daily., Disp: 90 tablet, Rfl: 0 ??? metoprolol tartrate (LOPRESSOR) 25 MG tablet, Take 0.5 tablets (12.5 mg total) by mouth 2 (two)times daily., Disp: 60 tablet, Rfl: 3 ??? omeprazole (PRILOSEC) 20 MG capsule, Take 1 capsule by mouth once daily, Disp: 90 capsule, Rfl:0 ??? potassium chloride CR (K-TAB) 10 MEQ Tab CR tablet, Take 1 tablet (10 mEq total) by mouth daily., Disp: 30 tablet, Rfl: 2 ??? rosuvastatin (CRESTOR) 5 MG tablet, TAKE 1 TABLET BY MOUTH NIGHTLY AT BEDTIME, Disp: 90 tablet,Rfl: 0 ??? traZODone (DESYREL) Tab 25 mg (50 mg split tab), Take 1 split tab (25 mg total) by mouth nightly at bedtime for 30 days., Disp: 30 split tab, Rfl: 0 ??? VENLAFAXINE XR 150 MG 24 hr capsule, Take 1 capsule by mouth once daily (Patient taking differently: Take 150 mg by mouth daily.), Disp: 90 capsule, Rfl: 0 ??? warfarin (COUMADIN) 4 MG tablet, Take 1 tablet (4 mg total) by mouth daily., Disp: 90 tablet, Rfl: 1 ??? warfarin (COUMADIN) 5 MG tablet, Take 1 tablet (5 mg total) by mouth daily., Disp: 30 tablet, Rfl: 2 Allergies Allergen Reactions ??? Atorvastatin Leg Pain Leg pain/cramps. Resolved after stopping. ??? Tape Contact Dermatitis ??? Bacitracin Other (see comment) ??? Benzalkonium Other (see comment) ??? Gramicidin Other (see comment) ??? Hydrocortisone Other (see comment) ??? Neomycin Other (see comment) ??? Polymyxin B Other (see comment) History: Past Medical History: Diagnosis Date ??? 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 Anxiety ??? Atrial flutter (CMS/HCC) ??? Cataract ??? Chronic anticoagulation due to mechanical heart valve ??? Chronic pain ??? Diabetes mellitus (CMS/HCC) ??? H/O mechanical aortic valve replacement 2003 ??? Hypertension Past Surgical History: Procedure Laterality Date ??? REPAIR HEART WOUND Social History Social History Narrative ??? Not on file Family History Problem Relation Name Age of Onset ??? Heart Father ??? Diabetes Father ??? Heart Mother Review of Systems: Review of Systems All other systems reviewed and are negative. Vitals: There were no vitals filed for this visit. Physical Exam: Physical Exam Vitals and nursing note reviewed. Constitutional: Appearance: Normal appearance. HENT: Head: Normocephalic. Right Ear: External ear normal. Left Ear: External ear normal. Nose: Nose normal. Mouth/Throat: Mouth: Mucous membranes are moist. Eyes: Pupils: Pupils are equal, round, and reactive to light. Neck: Thyroid: No thyroid mass or thyromegaly. Cardiovascular: Rate and Rhythm: Normal rate and regular rhythm. Pulses: Normal pulses. Pulmonary: Effort: Pulmonary effort is normal. Abdominal: General: Abdomen is flat. Musculoskeletal: General: Normal range of motion. Cervical back: Normal range of motion. Skin: General: Skin is warm. Neurological: General: No focal deficit present. Mental Status: She is alert and oriented to person, place, and time. Psychiatric: Mood and Affect: Mood normal. Behavior: Behavior normal. Data: CREATININE S/P/B Date Value Ref Range Status 11/15/2021 1.26 (H) 0.55 - 1.02 MG/DL Final TRIGLYCERIDE Date Value Ref Range Status 08/29/2021 108 <150 MG/DL Final HDL Date Value Ref Range Status 08/29/2021 71 >40 MG/DL Final AST Date Value Ref Range Status 11/15/2021 24 15 - 37 U/L Final ALT Date Value Ref Range Status 11/15/2021 19 14 - 59 U/L Final TSH Date Value Ref Range Status 11/15/2021 <0.007 (L) 0.358 - 3.740 uIU/ML Final FREE T4 Date Value Ref Range Status 11/15/2021 4.72 (H) 0.76 - 1.46 NG/DL Final FREE T3 Date Value Ref Range Status 09/26/2021 8.7 (H) 2.2 - 3.9 PG/ML Final HGB Date Value Ref Range Status 11/15/2021 8.7 (L) 12.0 - 16.0 G/DL Final HGB A1C Date Value Ref Range Status 08/29/2021 6.1 4.5 - 6.2 % Final MRI BRAIN WO CON Narrative: EXAMINATION: MRI BRAIN WO CON, 10/25/2021 10:53 PM TECHNIQUE: Axial and sagittal T1, axial T2, axial DWI, axial and sagittal T2 FLAIR, as well as axial T2 GRE magnetic resonance images of the brain were obtained without intravenous contrast. HISTORY: Stroke COMPARISON: CTA head 10/22/2021 FINDINGS: There is no restricted diffusion to suggest an acute infarction. There is no hemorrhagic focus of susceptibility. Scattered subcortical and periventricular white matter foci demonstrating increased signal on T2-weighted FLAIR images that are nonspecific but most commonly seen in setting of chronic small vessel ischemic change. Moderate global cerebral volume loss with ex vacuo dilatation of ventricles and cerebral sulci. The sellar, callosal, pineal, and craniovertebral junction regions appear within normal limits. There is no extra-axial fluid collection. The basal cisterns appear normal. Redemonstrated 4 mm saccular aneurysm along the right MCA bifurcation (best seen on series 8 image 10), better characterized on prior CT head examination from 10/22/2021. The proximal intracranial arterial flow voids otherwise have a normal appearance. Prior bilateral ocular lens extractions with prosthetic lens implantation. The orbital contents otherwise appear within normal limits. The paranasal sinuses and mastoid air cells are well aerated. Impression: IMPRESSION: 1. No acute intracranial abnormality. 2. Moderate global cerebral volume loss and mild to moderate chronic small vessel ischemic change. 3. Redemonstrated right MCA bifurcation saccular aneurysm, similar to the prior CT head examinationfrom 10/22/2021. Referred By: Interpreted By: José Almeida MD, 10/25/2021 10:52 PM Assessment and Plan Diagnoses and all orders for this visit: Hypercalcemia Mild per calcium varying between normal and 10.9 ( not exceeding 11.2 mg/dl ) With CKD III ( rather stable over the last few years ) PTH is > 200; high DXA 07/2021 showed severe osteoporosis per T score -3.4 s.d. on left femoral neck Recommendations: Urine calcium was never done: will do a FeCa as a urine collection is too cumbersome Per se, if the FeCa is high, then surgery is indicated given the osteoporosis . Yet, may reconsidergiven how medically fragile she is and michelle that the prolia is helping keep calcium controlled and also in light of her thyroid issues Osteoporosis DXA 07/2021 showed severe osteoporosis per T score -3.4 s.d. on left femoral neck prolia was started 08/2021 On vit D Recommendations: Maintain Next dose prolia 02/2022 Maintain vit D replacement Follow DXA 07/2023 Hyperthyroidism US thyroid 07/2021 : evidence of chronic thyroiditis Uncontrolled per TFT 11/2021 and symptomatic with weight loss Recommendations: Will double the MMI to 20 mg qday instead of 10 given her thyroid status Follow TFT Also review TSI antibodies aPnda Moreno Referring Provider: Sanjeev Webster DO PCP: Sanjeev Webster DO * Rafia Smith LPN - 01/07/2022 9:00 AM CDT No show to appt 10/03/21 DX:bthtybektprg-hfnhnartmohuntzj-lnscwhcwlhk JUNE:06/20/21 prolia- given 08/08/21 next appt 02/17/22 Thyroid US: 07/30/21 Bone density: 07/15/21 Labs: 11/15/21 Concerns: documented in this encounter Plan of Treatment Upcoming Encounters Date Type Department Care Team (Late st Contact Info) Description 04/14/2024 2:00 PM CIVIL SERVICE WORKER Office Visit [facility] Medical [facility] Multispecialty Care - [facility] [address] [facility], [address] [place] [address] Julio Pulido MD [address] [place] [address] documented as of this encounter Goals Goal Patient Goal Type Associated Problems Recent Progress Patient-Stated? Author Health - patient able to perform ADLs independently General On track(2023 9:49 AM CDT) Dianne Corona RN Note: 12/17/23: Patient stated she is independent with ASL's. Establish Plan for Symptom Monitoring-CHF General On track(2023 11:36 AM CIVIL SERVICE WORKER) Dianne Corona RN Note: Patient will [...] Symptom Monitoring-COPD General On track(2023 11:36 AM CIVIL SERVICE WORKER) Dianne Corona RN Note: Patient will [...] Symptom Monitoring-DM General On track(2023 4:33 PM CIVIL SERVICE WORKER) Dianne Corona RN Note: Patient will [...] Symptom Monitoring-HTN General On track(2023 4:33 PM CIVIL SERVICE WORKER) Dianne Corona RN Note: Patient will monitor B/P several times per week , record readings and report to physician or CC if B/P consistently >130/80 Take your medications as prescribed. Follow up with your provider as scheduled. Take your blood pressure at least several times a week if able. documented as of this encounter Visit Diagnoses Diagnosis Secondary hyperparathyroidism ([facility])- Primary Secondary hyperparathyroidism (of renal origin) Hyperthyroidism Thyrotoxicosis without mention of goiter or other cause, without mention of thyrotoxic crisis or storm Age-related osteoporosis with current pathological fracture, initial encounter documented in this encounter Additional Health Concerns Assessment Noted Time PHQ-9 Depression Total Score: 3 12/24/19 22 11:48 AM CDT documented as of this encounter Care Teams Director Of Search Engine Marketing Relationship Specialty Start Date End Date Sanjeev Webster DO [address] [place] [id number] PCP - General FAMILY PRACTICE 09/25/20 Dianne Johnson, RN [address] [place] [address] Claim Approver (Ambulatory) REGISTERED NURSE 08/14/20 documented as of this encounter
--- OUTSIDE RECORDS SUMMARY | 2024-03-15 01:02 | XMS_ITS | Encounter Summary ---
Author Organization [facility] Address [facility] [place] [address] [place] [address] Care Team Providers Care Carbon Coater Machine Operator Name Role Phone Dianne Johnson RN Unavailable [phone] Sanjeev Webster DO Primary Care Provider + Reason for Visit * Reason Onset Date Comments Results 12/24/2021 Encounter Details Date Type Department Care Team (Late st Contact Info) Description 12/24/2021 Telephone [facility] Medical Group Family & Internal Medicine [address] [place] [address] Sanjeev Webster DO [facility] [place] [address] Results Social History Tobacco Use [...] Status No 11/05/2021 7:00 PM CDT Stephanie Rodriugez R N Active * Because of a [...] Progress Notes * Latha Ring MA - 12/27/2021 2:32 PM CDT Patient informed and v/u. * Yenifer Ingram MA - 12/24/2021 4:11 PM CDT Verna Carr MA 12/24/2021 11:30 AM CDT Back to [facility] for patient to call the office ----- Message from Sanjeev Webster DO sent at 12/19/2021 3:32 PM CDT ----- Let's increase to 5 mg daily and recheck at next OV on 12/23/21. documented in this encounter Plan of Treatment Upcoming Encounters Date Type Department Care Team (Late st Contact Info) Description 04/14/2024 2:00 PM SPORTS TRAINER Office Visit [facility] Medical Group Multispecialty Care - [facility] 3 [facility], [address] [place] [address] Julio Pulido MD [address] [place] [address] documented as of this encounter Goals Goal Patient Goal Type Associated Problems Recent Progress Patient-Stated? Author Health - patient able to perform ADLs independently General On track(2023 9:49 AM CDT) Dianne Corona, DALE Note: 12/17/23: Patient stated she is independent with ASL's. Establish Plan for Symptom Monitoring-CHF General On track(2023 11:36 AM SPORTS TRAINER) Dianne Corona, RN Note: Patient will recognize [...] Monitoring-COPD General On track(2023 11:36 AM SPORTS TRAINER) Dianne Corona RN Note: Patient will recognize [...] Monitoring-DM General On track(2023 4:33 PM SPORTS TRAINER) Dianne Corona RN Note: Patient will manage [...] Monitoring-HTN General On track(2023 4:33 PM SPORTS TRAINER) Dianne Corona RN Note: Patient will monitor [...] documented as of this encounter Care Teams Carbon Coater Machine Operator Relationship Specialty Start Date End Date Sanjeev Webster DO [address] [place] [id number] PCP - General FAMILY PRACTICE 09/25/20 Dianne Johnson RN [address] [place] [id number] Night Shift (Ambulatory) REGISTERED NURSE 08/14/20 documented as of this encounter
--- OUTSIDE RECORDS SUMMARY | 2024-03-15 01:02 | XMS_ITS | Encounter Summary ---
Author Organization [facility] Address [facility] [place] [address] [place] [address] Care Team Providers Care Auger Machine Offbearer Name Role Phone Dianne Johnson RN Unavailable [phone] Sanjeev Webster DO Primary Care Provider + Reason for Visit * Reason Comments Dizziness Follow up on vertigo and labs Encounter Details Date Type Department Care Team (Late st Contact Info) Description 01/17/2022 1:40 PM MORNING NEWS PRODUCER Office Visit [facility] Family & Internal Medicine [address] [address] Sanjeev Webster DO [facility] [place] [address] Dizziness (Follow up on vertigo and labs ) Social History Tobacco Use Types Packs/Day [...] Coronavirus/COVID-19? No / Unsure 01/17/2022 1:30 PM MORNING NEWS PRODUCER documented as of this encounter Last Filed Vital Signs Vital Sign Reading Time Taken Comments Blood Pressure 132/74 01/17/2022 1:46 PM MORNING NEWS PRODUCER Pulse 60 01/17/2022 1:46 PM MORNING NEWS PRODUCER Temperature 36.8 ??C (98.3 ??F) 01/17/2022 1:46 PM CS T Respiratory Rate 16 01/17/2022 1:46 PM MORNING NEWS PRODUCER Oxygen Saturation 93% 01/17/2022 1:46 PM MORNING NEWS PRODUCER Inhaled Oxygen Concentration - - Weight 76.8 kg (169 lb 4.8 oz) 01/17/2022 1:46 P M MORNING NEWS PRODUCER Height 165.1 cm (5' 5 ) 01/17/2022 1:46 PM MORNING NEWS PRODUCER Body Mass Index 28.17 01/17/2022 1:46 PM MORNING NEWS PRODUCER documented in this encounter Functional Status * [...] encounter Progress Notes * Sanjeev Webster, - 01/17/2022 1:40 PM CST Images from the original note were not included. GENERAL OFFICE VISIT Encounter Date: 01/17/2022 Chief Complaint: 76-year-old female presents for Dizziness (Follow up on vertigo and labs ) HPI: Pt presents for short term follow-up. Pt was given Augmentin, had lisinopril increased, and had labs drawn. Labs are not available at this time. Most of her symptoms are improved from previous check. No new acute complaints. Review of Systems Constitutional: Negative for fever. HENT: Negative for ear pain and sinus pressure. Respiratory: Negative for shortness of breath. Cardiovascular: Negative for chest pain. Endocrine: See HPI Skin: Negative for rash. Neurological: Positive for dizziness. Negative for headaches. Patient Active Problem List Diagnosis ??? Abnormal stress test ??? Chronic anticoagulation ??? Coronary artery disease involving [place] coronary artery of [place] heart without angina pectoris ??? Dyspnea on [...] Never Smoker ??? Smokeless tobacco: Never Used ??? Tobacco comment: non smoker Vaping Use ??? Vaping Use: [...] 09/05/2020 ??? Tetanus/Diptheria 07/22/2014 ??? Zoster (Zostavax) 727[address] Unt/0.65Ml 12/25/2015 Current Outpatient Medications Medication Sig [...] needed for anxiety 30 tablet 0 ??? amoxicillin-clavulanate (AUGMENTIN) 875-125 MG tablet Take 1 tablet (875 mg total) by mouth 2 (two) times daily for 10 days. 20 tablet 0 ??? Cholecalciferol (VITAMIN D3) 25 [...] by mouth daily. 30 tablet 0 ??? gabapentin (NEURONTIN) 300 MG [...] 2 (two) times daily. 180 tablet 3 ??? metoprolol tartrate (LOPRESSOR) 25 MG tablet [...] twice daily as needed for anxiety ??? amoxicillin-clavulanate (AUGMENTIN) 875-125 MG tablet Take 1 tablet (875 mg total) by mouth 2 (two) times daily for 10 days. ??? Cholecalciferol (VITAMIN D3) 25 MCG (1000 UT) Cap Take 1,000 Units by mouth daily. ??? FEROSUL 325 (65 Fe) MG tablet Take 1 tablet by mouth once daily (Patient taking differently: Take 325 mg by mouth daily with breakfast.) ??? fluticasone propionate 50 MCG/ACT nasal spray 2 sprays by Nasal route daily. ??? furosemide (LASIX) 20 MG tablet Take 3 tablets (60 mg total) by mouth daily. ??? gabapentin (NEURONTIN) 300 MG capsule Take 1 capsule (300 mg total) by mouth 2 (two) times daily. ??? HYDROcodone-acetaminophen (NORCO) 10-325 MG tablet Take 1 tablet by mouth every 6 (six) hours as needed for Pain. Indications: Chronic Pain Do not take with alprazolam. ??? lidocaine 5 % Apply pain patch to affected area. Change after 12 hours. ??? lisinopril (PRINIVIL) 20 MG tablet Take 1 tablet (20 mg total) by mouth daily. ??? methIMAzole (TAPAZOLE) 10 MG tablet Take 1 tablet (10 mg total) by mouth 2 (two) times daily. ??? metoprolol tartrate (LOPRESSOR) 25 MG tablet Take 0.5 tablets (12.5 mg total) by mouth 2 (two) times daily. ??? omeprazole (PRILOSEC) 20 MG capsule Take 1 capsule by mouth once daily ??? potassium chloride CR (K-TAB) 10 MEQ Tab CR tablet Take 1 tablet (10 mEq total) by mouth daily. ??? rosuvastatin (CRESTOR) 5 MG tablet TAKE 1 TABLET BY MOUTH NIGHTLY AT BEDTIME ??? venlafaxine XR (EFFEXOR-XR) 150 MG 24 hr capsule Take 1 capsule (150 mg total) by mouth daily. ??? warfarin (COUMADIN) 6 MG tablet Take 1 tablet (6 mg total) by mouth daily. No current facility-administered medications on file prior to visit. Allergies Allergen Reactions ??? Atorvastatin Leg Pain Leg pain/cramps. Resolved after stopping. ??? Tape Contact Dermatitis ??? Bacitracin Other (see comment) ??? Benzalkonium Other (see comment) ??? Gramicidin Other (see comment) ??? Hydrocortisone Other (see comment) ??? Neomycin Other (see comment) ??? Polymyxin B Other (see comment) Objective: Filed Vitals: 01/17/22 1346 BP: 132/74 Pulse: 60 Resp: 16 Temp: 98.3 ??F (36.8 ??C) TempSrc: Skin SpO2: 93% Weight: 76.8 kg (169 lb 4.8 oz) Height: 5' 5 (1.651 m) Physical Exam Vitals and nursing note reviewed. Constitutional: General: She is not in acute distress. Comments: Similar to previous HENT: Head: Normocephalic and atraumatic. Right Ear: Tympanic membrane, ear canal and external ear normal. Left Ear: Tympanic membrane, ear canal and external ear normal. Mouth/Throat: Pharynx: No oropharyngeal exudate or posterior oropharyngeal erythema. Eyes: General: No scleral icterus. Conjunctiva/sclera: Conjunctivae [...] Diagnoses and all orders for this visit: Vertigo Acute non-recurrent maxillary sinusitis Discussion/Summary: Symptoms are notably improved; continue current meds. F/u in 1 month and sooner if needed. Will request labs, but were not available by time of signing. Pt v/u. I spent 20 minutes today reviewing the patient's medical record, obtaining history, performing an exam, documenting in the medical record, counseling and educating the patient and coordinating care. Sanjeev Webster DO ING NEWS PRODUCER documented in this encounter Plan of Treatment Upcoming Encounters Date Type Department Care Team (Late st Contact Info) Description 04/14/2024 2:00 PM MORNING NEWS PRODUCER Office Visit [facility] Multispecialty Care - [address], [address] [place] [address] Julio Pulido MD [address] [place] [address] documented as of this encounter Goals Goal Patient Goal Type Associated Problems Recent Progress Patient-Stated? Author Health - patient able to perform ADLs independently General On track(2023 9:49 AM CDT) Dianne Corona RN Note: 12/17/23: Patient stated she is independent with ASL's. Establish Plan for Symptom Monitoring-CHF General On track(2023 11:36 AM MORNING NEWS PRODUCER) Dianne Corona RN Note: Patient will [...] Symptom Monitoring-COPD General On track(2023 11:36 AM MORNING NEWS PRODUCER) Dianne Corona RN Note: Patient will [...] Symptom Monitoring-DM General On track(2023 4:33 PM MORNING NEWS PRODUCER) Dianne Corona RN Note: Patient will [...] Symptom Monitoring-HTN General On track(2023 4:33 PM MORNING NEWS PRODUCER) No Dianne Johnson, RN Note: Patient will monitor B/P several times per week , record readings and report to physician or CC if B/P consistently >130/80 Take your medications as prescribed. Follow up with your provider as scheduled. Take your blood pressure at least several times a week if able. documented as of this encounter Visit Diagnoses Diagnosis Vertigo- Primary Dizziness and giddiness Acute non-recurrent maxillary sinusitis documented in this encounter Additional Health Concerns Assessment Noted Time PHQ-9 Depression Total Score: 3 12/24/19 22 11:48 AM CDT documented as of this encounter Care Teams Auger Machine Offbearer Relationship Specialty Start Date End Date Sanjeev Webster DO [address] [place] [id number] PCP - General FAMILY PRACTICE 09/25/20 Dianne Johnson, RN [address] [place] [address] Icu Manager (Ambulatory) REGISTERED NURSE 08/14/20 documented as of this encounter
--- OUTSIDE RECORDS SUMMARY | 2024-03-15 01:02 | XMS_ITS | Encounter Summary ---
Author Organization [facility] Address [facility] access hospital[facility] [place] [address] [place] [address] Care Team Providers Care Procurement Officer Name Role Phone Dianne Johnson RN Unavailable [phone] Sanjeev Webster DO Primary Care Provider + Reason for Visit * Reason Onset Date Comments Follow Up Call 02/19/2022 Encounter Details Date Type Department Care Team (Late st Contact Info) Description 02/19/2022 Telephone [facility] Family & Internal Medicine [address] [address] Sanjeev Webster DO [facility] [place] [address] Follow Up Call Social History [...] Progress Notes * Dianne Johnson RN - 02/19/2022 4:15 PM CST Patient's last known INR was done 01/10/22. Stated her car was broke down but now it's fixed. She isrequesting an appointment for INR tomorrow around 10:00 am at PCP office. Please contact her and let her know if she can come in. FYI: Patient unsure if she is taking Warfarin 5 mg or 6 mg in the evening. Izzy ([id number]) fixes her pill account planner. CC left a message for Izzy to return phone call to find out. Will inform nursing team once she calls back. Thank you. Update: Izzy called back. Patient is taking 6 mg of Warfarin daily. Thank you. EL FILLER HEAD EL FILLER HEAD documented in this encounter Plan of Treatment Upcoming Encounters Date Type Department Care Team (Late st Contact Info) Description 04/14/2024 2:00 PM BARREL FILLER HEAD Office Visit [facility] Multispecialty Care - [facility] [address] [facility], [address] [place] [id number] Julio Pulido MD 3 [place] [address] documented as of this encounter Goals Goal Patient Goal Type Associated Problems Recent Progress Patient-Stated? Author Health - patient able to perform ADLs independently General On track(2023 9:49 AM CDT) Dianne Corona RN Note: 12/17/23: Patient stated she is independent with ASL's. Establish Plan for Symptom Monitoring-CHF General On track(2023 11:36 AM BARREL FILLER HEAD) Dianne Corona, RN Note: Patient will [...] Symptom Monitoring-COPD General On track(2023 11:36 AM BARREL FILLER HEAD) Dianne Corona, RN Note: Patient will [...] Symptom Monitoring-DM General On track(2023 4:33 PM BARREL FILLER HEAD) Dianne Corona RN Note: Patient will [...] Symptom Monitoring-HTN General On track(2023 4:33 PM BARREL FILLER HEAD) Dianne Corona, RN Note: Patient will monitor [...] documented as of this encounter Care Teams Procurement Officer Relationship Specialty Start Date End Date Sanjeev Webster DO [address] [place] [address] PCP - General FAMILY PRACTICE 09/25/20 Dianne Johnson, RN [address] [place] [address] Wall Steamer (Ambulatory) REGISTERED NURSE 08/14/20 documented as of this encounter
--- OUTSIDE RECORDS SUMMARY | 2024-03-15 01:02 | XMS_ITS | Encounter Summary ---
Author Organization [facility] Address [facility]6 [facility] [place] [address] [place] [address] Care Team Providers Care Intelligence Specialist Name Role Phone Dianne Johnson RN Unavailable [phone] Sanjeev Webster DO Primary Care Provider + Reason for Visit * Reason Onset Date Comments Results 01/13/2022 Encounter Details Date Type Department Care Team (Late st Contact Info) Description 01/13/2022 Telephone [facility] Family & Internal Medicine [address] [address] Sanjeev Webster DO [facility] [place] [address] Results Social History Tobacco Use [...] Coronavirus/COVID-19? No / Unsure 01/13/2022 10:29 AM HIDE MEASURING MACHINE OPERATOR documented as of this encounter [...] Status No 11/05/2021 7:00 PM CDT Stephanie Rdoriguez R N Active * Because of a [...] Progress Notes * Yenifer Ingram MA - 01/14/2022 3:01 PM CST Spoke with izzy and informed her of the changes. She states she will have the patient call the office when they get home and have her schedule the INR on the nurse schedule. MEASURING MACHINE OPERATOR * Sanjeev Webster DO - 01/13/2022 7:49 PM CST Will increase to 6 mg daily. Repeat 1 week from tomorrow. MEASURING MACHINE OPERATOR * Yenifer Ingram MA - 01/13/2022 4:45 PM CST Spoke with patient's DIL and she states the patient is taking the 5mg qd as prescribed. Please advise Izzy states if her phone goes to we can leave her a detailed message. ----- Message from Sanjeev Webster DO sent at 01/12/2022 10:37 AM HIDE MEASURING MACHINE OPERATOR ----- Please reach out to family as pt's INR did not improve from previous check despite directions to increase to 5 mg daily. MEASURING MACHINE OPERATOR MEASURING MACHINE OPERATOR documented in this encounter Plan of Treatment Upcoming Encounters Date Type Department Care Team (Late st Contact Info) Description 04/14/2024 2:00 PM HIDE MEASURING MACHINE OPERATOR Office Visit [facility] Multispecialty Care - [facility] 3 [facility], [address] [place] [id number] Julio Pulido MD 3 [place] [address] documented as of this encounter Goals Goal Patient Goal Type Associated Problems Recent Progress Patient-Stated? Author Health - patient able to perform ADLs independently General On track(2023 9:49 AM CDT) Dianne Corona, RN Note: 12/17/23: Patient stated she is independent with ASL's. Establish Plan for Symptom Monitoring-CHF General On track(2023 11:36 AM HIDE MEASURING MACHINE OPERATOR) Dianne Corona, RN Note: Patient [...] Symptom Monitoring-COPD General On track(2023 11:36 AM HIDE MEASURING MACHINE OPERATOR) Dianne Corona RN Note: Patient [...] Symptom Monitoring-DM General On track(2023 4:33 PM HIDE MEASURING MACHINE OPERATOR) Dianne Corona RN Note: Patient [...] Symptom Monitoring-HTN General On track(2023 4:33 PM HIDE MEASURING MACHINE OPERATOR) Dianne Corona RN Note: Patient [...] Rule Out 01/13/2022 01/13/2022 01/13/2022 12:48 PM HIDE MEASURING MACHINE OPERATOR COVID-19 Rule Out 01/13/2022 01/13/2022 01/14/2022 12:15 AM HIDE MEASURING MACHINE OPERATOR Assessment Noted Time PHQ-9 Depression Total Score: 3 12/24/19 22 11:48 AM CDT documented as of this encounter Care Teams Intelligence Specialist Relationship Specialty Start Date End Date Sanjeev Webster DO [address] [place] [address] PCP - General FAMILY PRACTICE 09/25/20 Dianne Johnson, RN [address] [place] [address] Real Estate Associate (Ambulatory) REGISTERED NURSE 08/14/20 documented as of this encounter
--- OUTSIDE RECORDS SUMMARY | 2024-03-15 01:02 | XMS_ITS | Encounter Summary ---
Author Organization [facility] Address [facility] [place] [address] [place] [address] Care Team Providers Care Needle Loom Weaver Name Role Phone Casey Johnson RN Unavailable [phone] Sanjeev Webster DO Primary Care Provider + Reason for Visit * Reason Onset Date Comments Care Management 01/28/2022 Encounter Details Date Type Department Care Team (Late st Contact Info) Description 01/28/2022 Patient Outreach [facility] Family & Internal Medicine [address] [address] Casey Johnson, RN [address] [place] [address] Care Management Social History Tobacco [...] Coronavirus/COVID-19? No / Unsure 01/17/2022 1:30 PM NUTRITION WORKER documented as of this encounter Functional Status [...] Progress Notes * Casey Johnson RN - 01/28/2022 7:34 AM CST Chronic Care Management: Patient concerns or urgent matters that need addressed: None identified during this call. Patient Status: Contacted patient today. She is a very pleasant 76 year old. Stated she is taking antibiotic sent in for her the other day. Reviewed chart and he sent cefdinir. Denies any issues with s/s of bleeding at this time. Educated patient on antibiotic medication and warfarin may increase riskof bleeding. She is aware to keep scheduled INR appointments as directed by PCP. Patient stated sheis due for INR and will have it done tomorrow. She will contact 's office tomorrow to schedule a lab appointment. Stated right now she is at the store and doesn't know what time she will have it done. Reports sore throat on right side. Encouraged to drink plenty of fluids unless on fluid restriction, use humidifier and gargle with warm salt water. COPD: Patient denies any s/s of COPD exacerbation. Stated she is sleeping ok, denies worsening sob and doesn't need to use her quick relief inhaler at this time. Appetite is ok. CHF: Patient denies s/s of CHF exacerbation. Stated she weighs in on Wednesdays and no changes in her weight. Denies any swelling or worsening sob. Encouraged to monitor s/s closely and report the onset of any changes. Plan of Care: mds coordinator will continue to follow up by [...] provider ??? Establish Plan for Symptom Monitoring-HTN Patient will monitor B/P several times per week , record readings and report to physician or CC if B/P consistently >130/80 Take your medications as prescribed. Follow up with your provider as scheduled. Take your blood pressure at least several times a week if able. 01/15/22: Patient is not checking B/P at this time. Encouraged to check several times per week if able. Upcoming Visit Appointments: Future Appointments Date Time Provider Department Center 02/17/2022 11:00 AM [facility] 05/02/2022 11:00 AM Panda Moreno MD [facility] [...] Chronic anticoagulation ??? Coronary artery disease involving [place] coronary artery of [place] heart without angina pectoris ??? Dyspnea on [...] with type 2 diabetes mellitus ([facility]) Medications: Current Outpatient Medications Medication [...] made. Cosigned by Sanjeev Webster DO at 01/29/2022 1:17 PM NUTRITION WORKER ITION WORKER ITION WORKER documented in this encounter Plan of Treatment Upcoming Encounters Date Type Department Care Team (Late st Contact Info) Description 04/14/2024 2:00 PM NUTRITION WORKER Office Visit [facility] Multispecialty Care - [address], [address] [place] [address] Julio Pulido MD [address] [place] [address] documented as of this encounter Goals Goal Patient Goal Type Associated Problems Recent Progress Patient-Stated? Author Health - patient able to perform ADLs independently General On track(2023 9:49 AM CDT) Casey Corona RN Note: 12/17/23: Patient stated she is independent with ASL's. Establish Plan for Symptom Monitoring-CHF General On track(2023 11:36 AM NUTRITION WORKER) Casey Corona RN Note: Patient will [...] Symptom Monitoring-COPD General On track(2023 11:36 AM NUTRITION WORKER) Casey Corona RN Note: Patient will [...] Symptom Monitoring-DM General On track(2023 4:33 PM NUTRITION WORKER) Casey Corona RN Note: Patient will [...] Symptom Monitoring-HTN General On track(2023 4:33 PM NUTRITION WORKER) No Casey Johnson, RN Note: Patient will monitor B/P several times per week , record readings and report to physician or CC if B/P consistently >130/80 Take your medications as prescribed. Follow up with your provider as scheduled. Take your blood pressure at least several times a week if able. documented as of this encounter Visit Diagnoses Diagnosis COPD (chronic obstructive pulmonary disease) ([facility])- Primary Chronic airway obstruction, not elsewhere classified Diastolic heart failure ([facility]) Unspecified diastolic heart failure documented in this encounter Additional Health Concerns Assessment Noted Time PHQ-9 Depression Total Score: 3 12/24/19 22 11:48 AM CDT documented as of this encounter Care Teams Needle Loom Weaver Relationship Specialty Start Date End Date Sanjeev Webster DO [address] [place] [id number] PCP - General FAMILY PRACTICE 09/25/20 Casey Johnson, RN [address] [place] [address] Program Arranger (Ambulatory) REGISTERED NURSE 08/14/20 documented as of this encounter
--- OUTSIDE RECORDS SUMMARY | 2024-03-15 01:02 | XMS_ITS | Encounter Summary ---
Author Organization [facility] Address [facility]6 [facility]. [place], [place] [address] [place] [address] Care Team Providers Care Web Services Professional Name Role Phone Dianne Johnson RN Unavailable [phone] Sanjeev Webster DO Primary Care Provider + Reason for Visit * Reason Comments Anticoagulation Encounter Details Date Type Department Care Team (Late st Contact Info) Description 01/10/2022 11:00 AM CDT Allied Health/Nurse Visit [facility] Family & Internal Medicine [address] [address] Sanjeev Wbester DO [address] [place] [address] Anticoagulation Social History Tobacco Use Types [...] Progress Notes * Chas Staley MA - 01/10/2022 11:00 AM CDTAddended by: CHAS STALEY on: 01/10/2022 11:19 AM Modules accepted: Orders documented in this encounter Plan of Treatment Upcoming Encounters Date Type Department Care Team (Late st Contact Info) Description 04/14/2024 2:00 PM CORPORATE LICENSED BROKER Office Visit [facility] Multispecialty Care - [address], [address] [place] [address] Julio Pulido MD [address] [place] [address] documented as of this encounter Goals Goal Patient Goal Type Associated Problems Recent Progress Patient-Stated? Author Health - patient able to perform ADLs independently General On track(2023 9:49 AM CDT) Dianne Corona RN Note: 12/17/23: Patient stated she is independent with ASL's. Establish Plan for Symptom Monitoring-CHF General On track(2023 11:36 AM CORPORATE LICENSED BROKER) Dianne Corona, RN Note: Patient will recognize [...] Symptom Monitoring-COPD General On track(2023 11:36 AM CORPORATE LICENSED BROKER) Dianne Corona, RN Note: Patient will recognize [...] Symptom Monitoring-DM General On track(2023 4:33 PM CORPORATE LICENSED BROKER) Dianne Corona RN Note: Patient will manage [...] Symptom Monitoring-HTN General On track(2023 4:33 PM CORPORATE LICENSED BROKER) Dianne Corona RN Note: Patient will monitor [...] Associated Diagnosis Comments PROTHROMBIN TIME, VENOUS Routine 01/10/2022 11:18 AM CDT Chronic anticoagulation COLLECT.CAPILLARY (FNGR,HEEL,EAR) Routine 01/10/2022 11:17 AM CDT Chronic anticoagulation COLLECTION VENOUS BLOOD VENIPUNCTURE Routine 01/10/2022 11:17 AM CDT Chronic anticoagulation PROTHROMBIN TIME, FINGERSTICK Routine 01/10/2022 Chronic anticoagulation documented in this encounter Results * (ABNORMAL) PROTIME/INR, VENOUS (01/10/2022 11:18 AM CDT) [facility] PROTIME 14.9(H) 9.3 - 11.6 SEC 01/10/2022 3:45 PM CDT -[facility] INR 1.5(H) 0.9 - 1.1 01/10/2022 3:45 PM CDT -[facility] Comment: TREATMENT OR PROPHYLAXIS AGAINST: ?? THERAPEUTIC RANGE (INR): ?VENOUS THROMBOSIS ? 2.0-3.0 ?PULMONARY EMBOLUS ? 2.0-3.0 ?? MECHANICAL PROSTHETIC VALVES ? 2.5-3.5 01/10/2022 11:1 8 AM CDT us Sanjeev Webster DO LABORATORY Final Re sult Performing Organization Address [facility] Co de Phone Number [facility] [address] [place] [address], [place] [phone] * PROTIME/INR, FINGERSTICK (01/10/2022) INR WHOLE BLOOD 1.60 MG-S [facility] Comment:Pt on 5mg, venous co mpleted. 01/10/2022 us Sanjeev Webster DO LABORATORY Edited R esult - Final Performing Organization Address [facility] de Phone Number [facility] [address] [place] [address], documented in this encounter Visit Diagnoses Diagnosis Chronic anticoagulation- Primary Encounter for long-term (current) use of anticoagulants documented in this encounter Additional Health Concerns Assessment Noted Time PHQ-9 Depression Total Score: 3 12/24/19 22 11:48 AM CDT documented as of this encounter Care Teams Web Services Professional Relationship Specialty Start Date End Date Sanjeev Webster DO [address] [place] [address] PCP - General FAMILY PRACTICE 09/25/20 Dianne Johnson, RN [address] [place] [address] Grievance And Appeals Specialist (Ambulatory) REGISTERED NURSE 08/14/20 documented as of this encounter
--- OUTSIDE RECORDS SUMMARY | 2024-03-15 01:02 | XMS_ITS | Encounter Summary ---
Author Organization [facility] Address [facility]6 [facility] [place] [address] [place] [address] Care Team Providers Care Activities Officer Name Role Phone Dianne Johnson RN Unavailable [phone] Sanjeev Webster DO Primary Care Provider + Reason for Visit * Reason Onset Date Comments Orders 01/13/2022 Encounter Details Date Type Department Care Team (Late st Contact Info) Description 01/13/2022 Telephone [facility] Family & Internal Medicine [place] [address] [place] [address] Sanjeev Webster DO [facility] [place] [address] Orders Social History Tobacco Use Types Packs/Day [...] Patient Health Questionnaire-2 Score 6 12/11/2022 [facility] [...] climbing stairs? Yes 08/26/2022 7:46 PM CDT Inidana Gunderson RN Ac tive * Question Answer Date of Assessment Author Status Do you have difficulty dressing or bathing? No 08/26/2022 7:46 PM DARRYLT [place] Gunderson R N Active Because of a physical, mental, or emotional condition, do you have difficulty doing errands alone such as visiting a doctor's office or shopping? No 08/26/2022 7:46 PM [place] Call RN Act julien * RETIRED Are you [...] documented in this encounter Progress Notes * Amina De La Cruz - 01/13/2022 12:34 PM CST All three hep b tests for labs are not covered by medicare per medical necessity. Lab not drawing there, at [facility], says we can send her elsewhere if we find its applicable there or cheaper for patient. NESS ADMINISTRATION TEACHER documented in this encounter Plan of Treatment Upcoming Encounters Date Type Department Care Team (Late st Contact Info) Description 04/14/2024 2:00 PM BUSINESS ADMINISTRATION TEACHER Office Visit [facility] Multispecialty Care - [address], [address] [place] [address] Julio Pulido MD 3 [place] [address] documented as of this encounter Goals Goal Patient Goal Type Associated Problems Recent Progress Patient-Stated? Author Health - patient able to perform ADLs independently General On track(2023 9:49 AM CDT) Dianne Corona RN Note: 12/17/23: Patient stated she is independent with ASL's. Establish Plan for Symptom Monitoring-CHF General On track(2023 11:36 AM BUSINESS ADMINISTRATION TEACHER) Dianne Corona RN Note: Patient will [...] Symptom Monitoring-COPD General On track(2023 11:36 AM BUSINESS ADMINISTRATION TEACHER) Dianne Corona RN Note: Patient will [...] Symptom Monitoring-DM General On track(2023 4:33 PM BUSINESS ADMINISTRATION TEACHER) Dianne Corona RN Note: Patient will [...] Symptom Monitoring-HTN General On track(2023 4:33 PM BUSINESS ADMINISTRATION TEACHER) Dianne Corona RN Note: Patient will [...] Rule Out 01/13/2022 01/13/2022 01/13/2022 12:48 PM BUSINESS ADMINISTRATION TEACHER COVID-19 Rule Out 01/13/2022 01/13/2022 01/14/2022 12:15 AM BUSINESS ADMINISTRATION TEACHER COVID-19 Rule Out 03/18/2022 03/18/2022 03/18/2022 12:27 PM BUSINESS ADMINISTRATION TEACHER COVID-19 Rule Out 03/18/2022 03/18/2022 03/18/2022 12:57 PM BUSINESS ADMINISTRATION TEACHER COVID-19 Rule Out 03/18/2022 03/18/2022 03/19/2022 1:58 PM BUSINESS ADMINISTRATION TEACHER COVID-19 Rule Out 08/26/2022 08/26/2022 08/26/2022 4:56 PM CDT Assessment Noted Time PHQ-9 Depression Total Score: 3 12/24/19 22 11:48 AM CDT documented as of this encounter Care Teams Activities Officer Relationship Specialty Start Date End Date Sanjeev Webster DO [address] [place] [address] PCP - General FAMILY PRACTICE 09/25/20 Dianne Johnson, RN [facility] [place] [address] Nut Sheller Machine Operator (Ambulatory) REGISTERED NURSE 08/14/20 documented as of this encounter
--- OUTSIDE RECORDS SUMMARY | 2024-03-15 01:02 | XMS_ITS | Encounter Summary ---
Author Organization [facility] Address [facility]6 [facility] [place] [address] [place] [address] Care Team Providers Care Favor Maker Name Role Phone Dianne Johnson RN Unavailable [phone] Sanjeev Webster DO Primary Care Provider + Reason for Visit * Reason Comments Headache Patient reports head ache and dizziness. The patient states she has had a lot of sinus congestion. The patient states she seen endocrinology. Refill Request Patient states she i s in need of a refill on pain medication. Encounter Details Date Type Department Care Team (Late st Contact Info) Description 01/13/2022 10:40 AM SENIOR CUSTOMER SERVICE REPRESENTATIVE Office Visit [facility] Family & Internal Medicine [address] [address] Sanjeev Webster DO [address] [place] [address] Headache (Patient reports headache and dizziness. The patient states she has had a lot of sinus congestion. The patient states she seen endocrinology. ); Refill Request (Patient states she is in need of a refill on pain medication. ) Social History Tobacco Use Types [...] Coronavirus/COVID-19? No / Unsure 01/13/2022 10:29 AM SENIOR CUSTOMER SERVICE REPRESENTATIVE documented as of this encounter Last Filed Vital Signs Vital Sign Reading Time Taken Comments Blood Pressure 161/82 01/13/2022 11:18 AM SENIOR CUSTOMER SERVICE REPRESENTATIVE Pulse 56 01/13/2022 10:52 AM SENIOR CUSTOMER SERVICE REPRESENTATIVE Temperature 36.5 ??C (97.7 ??F) 01/13/2022 10:[address] Respiratory Rate 16 01/13/2022 10:52 AM SENIOR CUSTOMER SERVICE REPRESENTATIVE Oxygen Saturation 97% 01/13/2022 10:52 AM SENIOR CUSTOMER SERVICE REPRESENTATIVE Inhaled Oxygen Concentration - - Weight 74.6 kg (164 lb 8 oz) 01/13/2022 10:52 AM SENIOR CUSTOMER SERVICE REPRESENTATIVE Height 165.1 cm (5' 5 ) 01/13/2022 10:52 AM SENIOR CUSTOMER SERVICE REPRESENTATIVE Body Mass Index 27.37 01/13/2022 10:52 AM SENIOR CUSTOMER SERVICE REPRESENTATIVE documented in this encounter Functional Status * [...] Progress Notes * Sanjeev Webster, DO - 01/13/2022 10:40 AM CST Images from the original note were not included. GENERAL OFFICE VISIT Encounter Date: 01/13/2022 Chief Complaint: 76-year-old female presents for Headache (Patient reports headache and dizziness. The patient states she has had a lot of sinus congestion. The patient states she seen endocrinology. ) and Refill Request (Patient states she is in need of a refill on pain medication. ) HPI: Pt presents for short term follow-up. Pt presents for multiple complaints. She notes sinus congestion, earaches, headaches, and dizziness. She has had more symptoms for about 2 days. No fevers, body aches, or chills. Pt saw Dr. Moreno for her multiple endocrine issues. Prolia was continued. They are going to assess her calcium further to see if she would be indicated to consider parathyroid surgery. He also increased her methimazole to 20 mg daily (was on 10 previously). Pt's weight is similar to previous. We ordered multiple labs to further evaluate for liver cirrhosis. She hasn't obtained her labs yet.Pt didn't see neurology. Pt's PT/INR is still low. Our office will reach out to pt's family who fills meds to ensure these were correctly increased. Review of Systems HENT: Positive for ear pain and sinus pressure. Respiratory: Negative for shortness of breath. Cardiovascular: Negative for chest pain. Gastrointestinal: Negative for abdominal pain. Endocrine: See HPI Skin: Negative for rash. Neurological: Positive for dizziness and headaches. Patient Active Problem List Diagnosis ??? Abnormal stress test ??? Chronic anticoagulation ??? Coronary artery disease involving mashpee coronary artery of mashpee heart without angina pectoris ??? Dyspnea on [...] 09/05/2020 ??? Tetanus/Diptheria 07/22/2014 ??? Zoster (Zostavax) 91014 Unt/0.65Ml 12/25/2015 Current Outpatient Medications Medication Sig [...] NIGHTLY AT BEDTIME 90 tablet 0 ??? VENLAFAXINE XR 150 MG 24 [...] mg total) by mouth daily. ??? gabapentin 300 MG capsule Take 1 capsule (300 mg total) by mouth 2 (two) times daily. ??? lidocaine 5 % Apply pain patch to affected area. Change after 12 hours. ??? methIMAzole (TAPAZOLE) 10 MG tablet Take [...] TABLET BY MOUTH NIGHTLY AT BEDTIME ??? VENLAFAXINE XR 150 MG 24 hr capsule Take 1 capsule by mouth once daily (Patient taking differently: Take 150 mg by mouth daily.) ??? warfarin (COUMADIN) 4 MG tablet Take 1 tablet (4 mg total) by mouth daily. ??? warfarin (COUMADIN) 5 MG tablet Take [...] B Other (see comment) Objective: Filed Vitals: 01/13/22 1052 01/13/22 1118 BP: (!) 160/86 (!) 161/82 Pulse: 56 Resp: 16 Temp: 97.7 ??F (36.5 ??C) TempSrc: Skin SpO2: 97% Weight: 74.6 kg (164 lb 8 oz) Height: 5' 5 (1.651 [...] normal. Cardiovascular: Rate and Rhythm: Regular rhythm. Heart sounds: Normal heart sounds. No murmur heard. No friction rub. No gallop. Comments: Slow rate, consistent with previous presentation Pulmonary: Effort: Pulmonary effort is normal. No respiratory distress. Breath sounds: Normal breath sounds. No wheezing or rales. Abdominal: Palpations: Abdomen is soft. Tenderness: There is no abdominal tenderness. Musculoskeletal: Cervical back: Neck supple. Lymphadenopathy: Cervical: No cervical adenopathy. Skin: General: Skin is warm and dry. Findings: No rash. Neurological: General: No focal deficit present. Mental Status: She is alert. Mental status is at baseline. Psychiatric: Mood and Affect: Mood and affect normal. Assessment & Plan: Radha was seen today for headache and refill request. Diagnoses and all orders for this visit: Vertigo - CBC W/DIFF AUTOMATED; Future - COMPREHENSIVE METABOLIC PANEL; Future - CBC W/DIFF AUTOMATED - COMPREHENSIVE METABOLIC PANEL Hypertension associated with type 2 diabetes mellitus (CMS/HCC) - lisinopril (PRINIVIL) 20 MG tablet; Take 1 tablet (20 mg total) by mouth daily. Acute non-recurrent maxillary sinusitis - CORONAVIRUS (COVID-19) INFLUENZA A & B ANTIGEN IA PANEL - CORONAVIRUS (COVID 19) PCR; Future - amoxicillin-clavulanate (AUGMENTIN) 875-125 MG tablet; Take 1 tablet (875 mg total) by mouth 2 (two) times daily for 10 days. Dizziness - CORONAVIRUS (COVID-19) INFLUENZA A & B ANTIGEN IA PANEL - CORONAVIRUS (COVID 19) PCR; Future Acute nonintractable headache, unspecified headache type - CORONAVIRUS (COVID-19) INFLUENZA A & B ANTIGEN IA PANEL - CORONAVIRUS (COVID 19) PCR; Future Acute upper respiratory infection, unspecified - CORONAVIRUS (COVID-19) INFLUENZA A & B ANTIGEN IA PANEL Other chronic pain - HYDROcodone-acetaminophen (NORCO) 10-325 MG tablet; Take 1 tablet by mouth every 6 (six) hours asneeded for Pain. Indications: Chronic Pain Do not take with alprazolam. Cirrhosis of liver without ascites, unspecified hepatic cirrhosis type (CMS/HCC) Hyperthyroidism Secondary hyperparathyroidism (CMS/HCC) Discussion/Summary: Suspect symptoms are either related to acute sinusitis or elevated blood pressure. Will consider recent medication changes as well. Will rule out COVID and influenza today. Will send out Augmentin today. Will increase lisinopril as per above. Will give pt all needed labs to obtain at [facility] today. Will have pt f/u in 4 days for reassessment. Pt v/u. I spent 43 minutes today reviewing the patient's medical record, obtaining history, performing an exam, ordering medications, tests, and/or procedures, documenting in the medical record, referring and/or communicating with other health care providers, counseling and educating the patient/family/caregiver, reviewing and communicating test results and coordination of care. Sanjeev Webster DO OR CUSTOMER SERVICE REPRESENTATIVE documented in this encounter Plan of Treatment Upcoming Encounters Date Type Department Care Team (Late st Contact Info) Description 04/14/2024 2:00 PM SENIOR CUSTOMER SERVICE REPRESENTATIVE Office Visit [facility] Multispecialty Care - [address], [address] [place] [address] Julio Pulido MD [address] [place] [address] documented as of this encounter Goals Goal Patient Goal Type Associated Problems Recent Progress Patient-Stated? Author Health - patient able to perform ADLs independently General On track(2023 9:49 AM CDT) Dianne Corona, RN Note: 12/17/23: Patient stated she is independent with ASL's. Establish Plan for Symptom Monitoring-CHF General On track(2023 11:36 AM SENIOR CUSTOMER SERVICE REPRESENTATIVE) Dianne Corona, RN Note: Patient will [...] Monitoring-COPD General On track(2023 11:36 AM SENIOR CUSTOMER SERVICE REPRESENTATIVE) Dianne Corona, RN Note: Patient will [...] Monitoring-DM General On track(2023 4:33 PM SENIOR CUSTOMER SERVICE REPRESENTATIVE) Dianne Corona RN Note: Patient will [...] Monitoring-HTN General On track(2023 4:33 PM SENIOR CUSTOMER SERVICE REPRESENTATIVE) Dianne Corona RN Note: Patient will monitor [...] Associated Diagnosis Comments COMPREHENSIVE METABOLIC PANEL Routine 03/18/2022 12:00 AM SENIOR CUSTOMER SERVICE REPRESENTATIVE Vertigo CBC W/DIFF AUTOMATED Routine 03/18/2022 12:00 AM SENIOR CUSTOMER SERVICE REPRESENTATIVE Vertigo CORONAVIRUS (COVID-19) INFLUENZA A & B ANTIGEN IA PANEL Routine 01/13/2022 Acute non-recurrent maxillary sinusitis Dizziness Acute nonintractable headache, unspecified headache type Acute upper respiratory infection, unspecified documented in this encounter Results * COMPREHENSIVE METABOLIC PANEL (03/18/2022 12:00 AM SENIOR CUSTOMER SERVICE REPRESENTATIVE) 03/18/2022 Sanjeev Webster DO LABORATORY Final Re sult [facility] * CBC W/DIFF AUTOMATED (03/18/2022 12:00 AM SENIOR CUSTOMER SERVICE REPRESENTATIVE) 03/18/2022 Sanjeev Webster DO LABORATORY Final Re sult [facility] * CORONAVIRUS (COVID 19) PCR (01/13/2022 2:25 PM SENIOR CUSTOMER SERVICE REPRESENTATIVE) SPEC DESCRIPTION NASAL 01/14/20 2:26 PM SENIOR CUSTOMER SERVICE REPRESENTATIVE [facility] CORONAVIRUS SARS COV 2 PCR (RESP) NEGATIVE NEGATIVE 01/14/2022 12:15 AM SENIOR CUSTOMER SERVICE REPRESENTATIVE [facility] Comment: THE SARS-CoV-2 TEST HAS BEEN AUTHORIZED BY THE FDA UNDER AN EUA FOR USE BY AUTHORIZED LABORATORIES. PERFORMED BY NUCLEIC ACID AMPLIFICATION PCR FIRST TEST YES 01/13/2022 2:[address] [facility] EMPLOYED IN HEALTHCARE NO 01/13/2022 2:[address] [facility] SYMPTOMATIC DEFINED BY CDC YES 01/13/2022 2:26 PM SENIOR CUSTOMER SERVICE REPRESENTATIVE [facility] DATE OF SYMPTOM ONSET 2022011101/13/2022 2:[address] [facility] HOSPITALIZATION STATUS NO 01/13/2022 2:[address] [facility] PATIENT IN ICU NO 01/13/2022 2:[address] [facility] RESIDENT OF [facility] C[facility] NO 01/13/2022 2:[address] [facility] NASOPHARYNGEAL SWAB / Unknown 01/13/2022 2:25 PM SENIOR CUSTOMER SERVICE REPRESENTATIVE Sanjeev Webster DO MICROBIOLOGY - GENERAL O RDERABLES Final Result [facility] [address] [place] [address], * CORONAVIRUS (COVID-19) INFLUENZA A & B ANTIGEN IA PANEL (01/13/2022) CORONAVIRUS ANTIGEN IA NEGATIVE NEGATIVE [facility] INFLUENZA A NEGATIVE NEGATIVE [facility] INFLUENZA B NEGATIVE NEGATIVE [facility] Internal Control: VALID VALID [facility] NASAL STRUCTURE / Unknown 01/13/2022 us Sanjeev Webster DO MICROBIOLOGY - GENERAL O RDERABLES Final Result [facility] [address] [place] [address], documented in this encounter Visit Diagnoses Diagnosis Vertigo- Primary Dizziness and giddiness Hypertension associated with type 2 diabetes mellitus ([facility]/HCC HHS/HCC) Acute non-recurrent maxillary sinusitis Dizziness Dizziness and giddiness Acute nonintractable headache, unspecified headache type Acute upper respiratory infection, unspecified Other chronic pain Cirrhosis of liver without ascites, unspecified hepatic cirrhosis type (CMS/HCC HHS/HCC) Hyperthyroidism Thyrotoxicosis without mention of goiter or other cause, without mention of thyrotoxic crisis or storm Secondary hyperparathyroidism ([facility] HHS/HCC) Secondary hyperparathyroidism (of renal origin) documented in this encounter Additional Health Concerns Infection Onset Date Last Indicated Resolved Time COVID-19 Rule Out 01/13/2022 01/13/2022 01/13/2022 12:48 PM SENIOR CUSTOMER SERVICE REPRESENTATIVE COVID-19 Rule Out 01/13/2022 01/13/2022 01/14/2022 12:15 AM SENIOR CUSTOMER SERVICE REPRESENTATIVE Assessment Noted Time PHQ-9 Depression Total Score: 3 12/24/19 22 11:48 AM CDT documented as of this encounter Care Teams Favor Maker Relationship Specialty Start Date End Date Sanjeev Webster DO [address] [place] [address] PCP - General FAMILY PRACTICE 09/25/20 Dianne Johnson, RN [address] [place] [address] Antique Dealer (Ambulatory) REGISTERED NURSE 08/14/20 documented as of this encounter
--- OUTSIDE RECORDS SUMMARY | 2024-03-15 01:02 | XMS_ITS | Encounter Summary ---
Author Organization [facility] Address [facility] [place] [address] [place] [address] Care Team Providers Care Global Head Advertiser Solutions Name Role Phone Casey Johnson RN Unavailable [phone] Sanjeev Webster DO Primary Care Provider + Reason for Visit * Reason Onset Date Comments Care Management 01/15/2022 Encounter Details Date Type Department Care Team (Late st Contact Info) Description 01/15/2022 Patient Outreach [facility] Family & Internal Medicine [address] [address] Casey Johnson, RN [address] [place] [address] Care Management Social History Tobacco [...] No / Unsure 01/13/2022 10:29 AM SENIOR PAYROLL SPECIALIST documented as of this encounter Functional Status [...] Progress Notes * Casey Johnson RN - 01/15/2022 12:06 PM CST Images from the original note were not included. Chronic Care Management: Patient concerns or urgent matters that need addressed: Patient stated her iolascyf-ta-kac is trying to get the following medications refilled at [facility] in [place]: Venlafaxine ER and Gabapentin. 01/15/22: Contacted Shakir at [facility]. He stated Yulia Reynolds is a PA in [place] but didn't know if she was a specialist or not. Message sent to 's nursing team to address. Patient Status: Patient stated she is scheduled to see tomorrow. She had lab work done at [facility] on 01/13/22 and started antibiotic prescribed on 01/13/22. Stated her B/P was elevated during visit. Vitals on 01/13/22: Patient is on Lisinopril 20 mg daily since last seen on 01/13/22. Stated she informed Izzy (Vjzewgbd-vs-otf) that takes care of her pill data recovery planner. Confirmed f/u appointment with on 01/17/22 at 1:40 PM for reassessment and patient is aware. Denies any worsening sob or swelling at this time. Encouraged to call at the onset of any changes. 01/15/22: Contacted [facility] medical records to get lab results. 01/15/22: Received copy of lab results. Several pending. Faxed copy to . Plan of Care: watershed coordinator will continue to follow up by [...] notifying provider ??? Establish Plan for Symptom Monitoring-DM On [...] follow up with her provider as scheduled. 01/15/22: A1C on 01/13/22: 6.2 ??? Establish Plan for Symptom Monitoring-HTN Not on track Patient will monitor B/P several times per week and report to physician or CC if B/P consistently >140/90 Take your medications as prescribed. Follow up with your provider as scheduled. Take your blood pressure at least several times a week if able. 01/15/22: Patient is not checking B/P at this time. Encouraged to check several times per week if able. Upcoming Visit Appointments: Future Appointments Date Time Provider Department Center 01/17/2022 1:40 PM Sanjeev Webster DO [facility] 02/17/2022 11:00 AM ALEX INFUSION TREATMENT [facility] 05/02/2022 11:00 AM Panda Moreno MD [...] Chronic anticoagulation ??? Coronary artery disease involving [place] coronary artery of [place] heart without angina pectoris ??? Dyspnea on [...] mouth daily. 30 tablet 0 ??? gabapentin 300 MG capsule Take 1 [...] daily.) 90 capsule 0 ??? warfarin (COUMADIN) 6 MG tablet Take 1 tablet (6 mg total) by mouth daily. 30 tablet 2 No current facility-administered medications for this visit. Chronic Care Management- Time Spent with Patient Time spent with patient (minutes): 22 (Comment: Time spent with patient, [facility] and [facility].) Time spent performing chart review (minutes): 10 Total time (minutes): 32 CASEY JOHNSON RN I reviewed the patient's status and education provided by CASEY JOHNSON RN. I agree with the findings and recommendations made. Cosigned by Sanjeev Webster DO at 01/15/2022 11:32 PM SENIOR PAYROLL SPECIALIST OR PAYROLL SPECIALIST OR PAYROLL SPECIALIST documented in this encounter Plan of Treatment Upcoming Encounters Date Type Department Care Team (Late st Contact Info) Description 04/14/2024 2:00 PM SENIOR PAYROLL SPECIALIST Office Visit [facility] Multispecialty Care - [facility] [address] [facility], [address] [place] [address] Julio Pulido MD 3 [place] [address] documented as of this encounter Goals Goal Patient Goal Type Associated Problems Recent Progress Patient-Stated? Author Health - patient able to perform ADLs independently General On track(2023 9:49 AM CDT) Casey Corona RN Note: 12/17/23: Patient stated she is independent with ASL's. Establish Plan for Symptom Monitoring-CHF General On track(2023 11:36 AM SENIOR PAYROLL SPECIALIST) Casey Corona, RN Note: Patient will recognize [...] Monitoring-COPD General On track(2023 11:36 AM SENIOR PAYROLL SPECIALIST) Casey Corona, RN Note: Patient will recognize [...] Monitoring-DM General On track(2023 4:33 PM SENIOR PAYROLL SPECIALIST) Casey Corona, RN Note: Patient will manage [...] Monitoring-HTN General On track(2023 4:33 PM SENIOR PAYROLL SPECIALIST) Casey Corona, RN Note: Patient will monitor B/P several times per week , record readings and report to physician or CC if B/P consistently >130/80 Take your medications as prescribed. Follow up with your provider as scheduled. Take your blood pressure at least several times a week if able. documented as of this encounter Visit Diagnoses Diagnosis Diastolic heart failure ([facility])- Primary Unspecified diastolic heart failure COPD (chronic obstructive pulmonary disease) ([facility]) Chronic airway obstruction, not elsewhere classified Type 2 diabetes mellitus with diabetic peripheral angiopathy without gangrene, without long-term current use of insulin ([facility]) documented in this encounter Additional Health Concerns Assessment Noted Time PHQ-9 Depression Total Score: 3 12/24/19 22 11:48 AM CDT documented as of this encounter Care Teams Global Head Advertiser Solutions Relationship Specialty Start Date End Date Sanjeev Webster DO [address] [place] [id number] PCP - General FAMILY PRACTICE 09/25/20 Casey Johnson, RN [facility] [place] [address] Robotics Software Engineer (Ambulatory) REGISTERED NURSE 08/14/20 documented as of this encounter
--- OUTSIDE RECORDS SUMMARY | 2024-03-15 01:02 | XMS_ITS | Encounter Summary ---
Author Organization [facility] Address [facility], [id number] [facility] [place] [address] [place] [address] Care Team Providers Care Harpooner Name Role Phone Dianne Johnson RN Unavailable [phone] Sanjeev Webster DO Primary Care Provider + Encounter Details Date Type Department Care Team (Latest Contact Info) Description 01/16/2022 Scan HEALTH INFO SRVCS Scanned, Doc Med [...] Coronavirus/COVID-19? No / Unsure 01/17/2022 1:30 PM TRADEMARK ATTORNEY documented as of this encounter Functional Status [...] st Contact Info) Description 04/14/2024 2:00 PM TRADEMARK ATTORNEY Office Visit [facility] Medical Group Multispecialty Care - [facility] 3 [facility], [address] [place] [phone] Julio Pulido MD 3 [place] [address] documented as of this encounter Goals Goal Patient Goal Type Associated Problems Recent Progress Patient-Stated? Author Health - patient able to perform ADLs independently General On track(2023 9:49 AM CDT) No Dianne Johnson RN Note: 12/17/23: Patient stated she is independent with ASL's. Establish Plan for Symptom Monitoring-CHF General On track(2023 11:36 AM TRADEMARK ATTORNEY) Dianne Corona, RN Note: Patient will [...] Symptom Monitoring-COPD General On track(2023 11:36 AM TRADEMARK ATTORNEY) Dianne Corona RN Note: Patient will recognize [...] Symptom Monitoring-DM General On track(2023 4:33 PM TRADEMARK ATTORNEY) Dianne Corona RN Note: Patient will [...] Symptom Monitoring-HTN General On track(2023 4:33 PM TRADEMARK ATTORNEY) Dianne Corona RN Note: Patient will monitor [...] documented as of this encounter Care Teams Harpooner Relationship Specialty Start Date End Date Sanjeev Webster DO [address] [place] [address] PCP - General FAMILY PRACTICE 09/25/20 Dianne Johnson, RN [address] [place] [address] Party Coordinator (Ambulatory) REGISTERED NURSE 08/14/20 documented as of this encounter
--- OUTSIDE RECORDS SUMMARY | 2024-03-15 01:02 | XMS_ITS | Encounter Summary ---
Author Organization [facility] Address Counts include 234 beds at the [facility] [place] [address] [place] [address] Care Team Providers Care Clocksmith Name Role Phone Dianne Johnson RN Unavailable [phone] Sanjeev Webster DO Primary Care Provider + Reason for Visit * Reason Onset Date Comments Refill Request 01/15/2022 Encounter Details Date Type Department Care Team (Late st Contact Info) Description 01/15/2022 Telephone [facility] Medical Group Family & Internal Medicine [place] [id number] [place] [address] Sanjeev Webster DO [facility] [place] [address] Refill Request Social History Tobacco [...] Coronavirus/COVID-19? No / Unsure 01/13/2022 10:29 AM BARN WORKER documented as of this encounter Functional [...] Progress Notes * Yenifer Wolf MA - 01/16/2022 3:25 PM CSTAddended by: YENIFER WOLF on: 01/16/2022 03:25 PM Modules accepted: Orders WORKER * Yenifer Wolf MA - 01/16/2022 3:24 PM CST Prescriptions sent to the pharmacy on file. Patient notified WORKER * Sanjeev Webster DO - 01/15/2022 9:53 PM CST OK to fill. WORKER * Dianne Johnson RN - 01/15/2022 1:02 PM CST Images from the original note were not included. Patient stated her xtewhghy-no-xtm is trying to get the following medications refilled at [facility] pharmacy in [place]: Venlafaxine ER and Gabapentin. Please see below for PDMP review and please inform patient if will renew. Thank you. WORKER documented in this encounter Plan of Treatment Upcoming Encounters Date Type Department Care Team (Late st Contact Info) Description 04/14/2024 2:00 PM BARN WORKER Office Visit [facility] Multispecialty Care - [facility] 3 [facility], [address] [place] [address] Julio Pulido MD 3 [place] [address] documented as of this encounter Goals Goal Patient Goal Type Associated Problems Recent Progress Patient-Stated? Author Health - patient able to perform ADLs independently General On track(2023 9:49 AM CDT) Dianne Corona, RN Note: 12/17/23: Patient stated she is independent with ASL's. Establish Plan for Symptom Monitoring-CHF General On track(2023 11:36 AM BARN WORKER) Dianne Corona, RN Note: Patient will [...] Symptom Monitoring-COPD General On track(2023 11:36 AM BARN WORKER) Dianne Corona RN Note: Patient will [...] Symptom Monitoring-DM General On track(2023 4:33 PM BARN WORKER) Dianne Corona RN Note: Patient will [...] Symptom Monitoring-HTN General On track(2023 4:33 PM BARN WORKER) Dianne Corona RN Note: Patient will monitor B/P several times per week , record readings and report to physician or CC if B/P consistently >130/80 Take your medications as prescribed. Follow up with your provider as scheduled. Take your blood pressure at least several times a week if able. documented as of this encounter Visit Diagnoses Diagnosis Back pain Backache, unspecified Diabetic polyneuropathy associated with type 2 diabetes mellitus ([facility]/HCC) Mild episode of recurrent major depressive disorder (CMS/HCC) documented in this encounter Additional Health Concerns Assessment Noted Time PHQ-9 Depression Total Score: 3 12/24/19 22 11:48 AM CDT documented as of this encounter Care Teams Clocksmith Relationship Specialty Start Date End Date Sanjeev Webster DO [address] [place] [address] PCP - General FAMILY PRACTICE 09/25/20 Dianne Johnson, RN [address] [place] [address] Medical Geneticist (Ambulatory) REGISTERED NURSE 08/14/20 documented as of this encounter
--- OUTSIDE RECORDS SUMMARY | 2024-03-15 01:02 | XMS_ITS | Encounter Summary ---
Author Organization [facility] Address [facility], [id number] [facility] [place] [address] [place] [address] Care Team Providers Care Sales And Service Change Leader Name Role Phone Casey Johnson RN Unavailable [phone] Sanjeev Webster DO Primary Care Provider + Reason for Visit * Reason Onset Date Comments Care Management 12/25/2021 Encounter Details Date Type Department Care Team (Late st Contact Info) Description 12/25/2021 Patient Outreach [facility] Medical Group Family & Internal Medicine [address] [address] Casey Johnson, RN [address] [place] [address] Care Management Social History Tobacco [...] Progress Notes * Casey Johnson RN - 12/25/2021 4:44 PM CDT Chronic Care Management: Patient Status: Contacted patient to remind her of appointment tomorrow with Neurology. She stated her friend can not take her that early. She would like to reschedule the appointment. 12/25/21: Attempted to contact Neurology office and the office was closed. Will try again tomorrow morning. 12/26/21: Contacted Mary with Neurology department. She will have someone from office contact patient to reschedule appointment. Plan of Care: office will contact patient to reschedule appointment. public policy coordinator will continue to follow. Patient Goals: Goals Addressed This Visit's Progress [...] No issues to report at this time. ??? Establish Plan for [...] at present. 12/25/21: Stable at this time. ??? Establish Plan [...] and recheck in 15 minutes. Patient will take her medications as prescribed. Patient will follow up with her provider as scheduled. 04/29/21: Patient stated she hasn't been checking her BS. Educated patient on the importance of checking BS daily and recording readings. Denies issues with hypoglycemia s/s at this time. 06/21/21: Patient stated she only checks her BS when she is feeling bad. Stated she doesn't check it all the time. Stated I haven't been feeling bad lately. 07/29/21: Patient denies any issues with hypoglycemia s/s. Stated if she has s/s she would drink a regular soda or drink OJ. Reviewed medication list and patient is not taking any medications for diabetes. Patient stated she is not checking her BG. Message sent to 's nursing team. 08/12/21: Patient stated she just found her BG monitor and will begin checking. 09/18/21: Patient hasn't been checking BG. Encouraged patient to begin checking BG and record readings. Educated on the above information. 11/21/21: No issues to report at this time. A1C on 08/29/21: 6.1 %. 11/27/21: Patient not checking BG and not taking any DM medications at this time. ??? Establish Plan for Symptom Monitoring-HTN On track Patient will monitor B/P several times per week and report to physician or CC if B/P consistently >140/90 Take your medications as prescribed. Follow up with your provider as scheduled. Take your blood pressure at least several times a week if able. 04/29/21: Educated patient on the above and the importance of keeping record of her B/P and bring toupcoming appointments. Patient stated she will look and see if she has a B/P monitor. 06/21/21: Patient not checking B/P at home. Stated it was good at appointment yesterday. CC reviewedreading in [employer] from yesterday. B/P: 132/70 P: 65. 07/29/21: Patient is not taking B/P at this time. Stated her zmocaptx-sc-ndg sets up her pill business continuity planner and she is taking medications as directed. Reports alarm will go off at 8:00 am and 8:00 PM reminding her to take her medications. 08/12/21: Patient taking medication as directed. 09/18/21: Taking medication as directed. B/P on 09/12: 120/56. 11/27/21: B/P on 11/25/21 stable at 102/68. 12/25/21: No issues to report at this time. Upcoming Visit Appointments: Future Appointments Date Time Provider Department Center 01/07/2022 9:00 AM Panda Moreno MD [facility] [place] [facility] 01/13/2022 10:40 AM Sanjeev Webster DO [facility] [place] 02/17/2022 11:00 AM ALEX INFUSION RM 6 [facility] ALEX Quality care gaps: Health [...] Chronic anticoagulation ??? Coronary artery disease involving [place] coronary artery of [place] heart without angina pectoris ??? Dyspnea on [...] Patient Time spent with patient (minutes): 12 (Comment: Time spent with patient and Neurology) Time spent performing chart review (minutes): 5 Total time (minutes): 17 CASEY JOHNSON RN I reviewed the patient's status and education provided by CASEY JOHNSON RN. I agree with the findings and recommendations made. Cosigned by Sanjeev Webster DO at 12/29/2021 7:57 PM CDT documented in this encounter Plan of Treatment Upcoming Encounters Date Type Department Care Team (Late st Contact Info) Description 04/14/2024 2:00 PM VEHICLE DAMAGE APPRAISER Office Visit [facility] Group Multispecialty Care - [facility] 3 [facility], [address] [place] [address] Julio Pulido MD 3 [place] [address] documented as of this encounter Goals Goal Patient Goal Type Associated Problems Recent Progress Patient-Stated? Author Health - patient able to perform ADLs independently General On track(2023 9:49 AM CDT) Casey Corona RN Note: 12/17/23: Patient stated she is independent with ASL's. Establish Plan for Symptom Monitoring-CHF General On track(2023 11:36 AM VEHICLE DAMAGE APPRAISER) Casey Corona RN Note: Patient will recognize [...] Symptom Monitoring-COPD General On track(2023 11:36 AM VEHICLE DAMAGE APPRAISER) Casey Corona RN Note: Patient will recognize [...] Symptom Monitoring-DM General On track(2023 4:33 PM VEHICLE DAMAGE APPRAISER) Casey Corona RN Note: Patient will manage [...] Symptom Monitoring-HTN General On track(2023 4:33 PM VEHICLE DAMAGE APPRAISER) Casey Corona RN Note: Patient will monitor [...] ejection fraction (HFpEF) ([facility])- Primary COPD (chronic obstructive pulmonary disease) ([facility]) Chronic airway obstruction, not elsewhere classified Hypertension associated with type 2 diabetes mellitus ([facility]) documented in this encounter Additional Health Concerns Assessment Noted Time PHQ-9 Depression Total Score: 3 12/24/19 22 11:48 AM CDT documented as of this encounter Care Teams Sales And Service Change Leader Relationship Specialty Start Date End Date Sanjeev Webster DO [address] [place] [address] PCP - General FAMILY PRACTICE 09/25/20 Casey Johnson, RN [address] [place] [address] Special Education Science Teacher (Ambulatory) REGISTERED NURSE 08/14/20 documented as of this encounter
--- OUTSIDE RECORDS SUMMARY | 2024-03-15 01:02 | XMS_ITS | Encounter Summary ---
Author Organization [facility] Address [address] [place] [address]. [place] [address] [place] [address] Care Team Providers Care Hassock Maker Name Role Phone Dianne Johnson RN Unavailable [phone] Sanjeev Webster DO Primary Care Provider + Reason for Visit * Reason Onset Date Comments Appointment Request 12/23/2021 Encounter Details Date Type Department Care Team (Late st Contact Info) Description 12/23/2021 Telephone [facility] Medical Group Diabetes and Endocrinology [place] [address] [facility] [place] [address] Panda Moreno MD Appointment Request Social History Tobacco Use Types [...] No 11/05/2021 7:00 PM CDT Stephanie Rodriguez RN Active documented in this encounter Progress Notes * Panda Moreno MD - 12/23/2021 12:37 PM CDT Pt needs appointment for f/u : please arrange documented in this encounter Plan of Treatment Upcoming Encounters Date Type Department Care Team (Late st Contact Info) Description 04/14/2024 2:00 PM MARINE ENGINE DRIVER Office Visit [facility] Medical Group Multispecialty Care - [facility] 3 [facility], [address] [place] [phone] Julio Pulido MD 3 [place] [address] documented as of this encounter Goals Goal Patient Goal Type Associated Problems Recent Progress Patient-Stated? Author Health - patient able to perform ADLs independently General On track(2023 9:49 AM CDT) Dianne Corona RN Note: 12/17/23: Patient stated she is independent with ASL's. Establish Plan for Symptom Monitoring-CHF General On track(2023 11:36 AM MARINE ENGINE DRIVER) Dianne Corona RN Note: Patient will [...] Monitoring-COPD General On track(2023 11:36 AM MARINE ENGINE DRIVER) Dianne Corona RN Note: Patient will [...] Monitoring-DM General On track(2023 4:33 PM MARINE ENGINE DRIVER) Dianne Corona RN Note: Patient will [...] Monitoring-HTN General On track(2023 4:33 PM MARINE ENGINE DRIVER) No Dianne Johnson RN Note: Patient will [...] documented as of this encounter Care Teams Hassock Maker Relationship Specialty Start Date End Date Sanjeev Webster DO [address] [place] [address] PCP - General FAMILY PRACTICE 09/25/20 Dianne Johnson, RN [address] [place] [address] Health Information Manager (Ambulatory) REGISTERED NURSE 08/14/20 documented as of this encounter
--- OUTSIDE RECORDS SUMMARY | 2024-03-15 01:02 | XMS_ITS | Encounter Summary ---
Author Organization [facility] Address [address] [place] [address]. [id number] Care Team Providers Care Junior Recruiter Name Role Phone Dianne Johnson RN Unavailable [phone] Sanjeev Webster DO Primary Care Provider + Reason for Visit * Reason Onset Date Comments Appointment Request 12/26/2021 Encounter Details Date Type Department Care Team (Late st Contact Info) Description 12/26/2021 Telephone [facility] Multispecialty Care - [facility] [address] [facility], [address] [place] [address] Drew Padilla MD 3 [place] [address] Appointment Request Social History Tobacco [...] Stephanie Rodriguez A, R N Active documented as of this encounter Mental Status * Because of a physical, mental, or emotional condition, do you have serious difficulty concentrating, remembering, or making decisions? Answer Entry Date Author Status No 11/05/2021 7:00 PM CDT Stephanie Rodriguez A, R N Active documented in this encounter Progress Notes * Lola Moreno RN - 12/26/2021 8:54 AM CDT Attempted to reach pt to reschedule today's appointment. We received a message from PCP stating pt could not make it. documented in this encounter Plan of Treatment Upcoming Encounters Date Type Department Care Team (Late st Contact Info) Description 04/14/2024 2:00 PM CHIPPING MACHINE OPERATOR Office Visit [facility] Medical [facility] Multispecialty Care - [facility] [address] [facility], [address] [place] [address] Julio Pulido MD 3 [place] [address] documented as of this encounter Goals Goal Patient Goal Type Associated Problems Recent Progress Patient-Stated? Author Health - patient able to perform ADLs independently General On track(2023 9:49 AM CDT) Dianne Corona RN Note: 12/17/23: Patient stated she is independent with ASL's. Establish Plan for Symptom Monitoring-CHF General On track(2023 11:36 AM CHIPPING MACHINE OPERATOR) Dianne Corona RN Note: Patient [...] Symptom Monitoring-COPD General On track(2023 11:36 AM CHIPPING MACHINE OPERATOR) Dianne Corona, RN Note: Patient [...] Symptom Monitoring-DM General On track(2023 4:33 PM CHIPPING MACHINE OPERATOR) Dianne Corona RN Note: Patient [...] Symptom Monitoring-HTN General On track(2023 4:33 PM CHIPPING MACHINE OPERATOR) Dianne Corona RN Note: Patient [...] as of this encounter Care Teams Junior Recruiter Relationship Specialty Start Date End Date Sanjeev Webster DO [address] [place] [address] PCP - General FAMILY PRACTICE 09/25/20 Dianne Johnson RN [address] [place] [address] Leather Grainer (Ambulatory) REGISTERED NURSE 08/14/20 documented as of this encounter
--- OUTSIDE RECORDS SUMMARY | 2024-03-15 01:02 | XMS_ITS | Encounter Summary ---
Author Organization [facility] Address [facility] [address] [place] [address] Care Team Providers Care Licensed Loan Officer Assistant Name Role Phone Dianne Johnson RN Unavailable [phone] Sanjeev Webster DO Primary Care Provider + [...] Coronavirus/COVID-19? No / Unsure 01/17/2022 1:30 PM CAR STEREO INSTALLER documented as of this encounter Functional Status [...] st Contact Info) Description 04/14/2024 2:00 PM CAR STEREO INSTALLER Office Visit [facility] Medical Group Multispecialty Care - [facility] [address] [facility], [address] [place] [address] Julio Pulido MD 3 [place] [address] documented as of this encounter Goals Goal Patient Goal Type Associated Problems Recent Progress Patient-Stated? Author Health - patient able to perform ADLs independently General On track(2023 9:49 AM CDT) No Dianne Johnson, RN Note: 12/17/23: Patient stated she is independent with ASL's. Establish Plan for Symptom Monitoring-CHF General On track(2023 11:36 AM CAR STEREO INSTALLER) Dianne Corona, RN Note: Patient will recognize [...] Symptom Monitoring-COPD General On track(2023 11:36 AM CAR STEREO INSTALLER) Dianne Corona RN Note: Patient will [...] Symptom Monitoring-DM General On track(2023 4:33 PM CAR STEREO INSTALLER) Dianne Corona RN Note: Patient will [...] Symptom Monitoring-HTN General On track(2023 4:33 PM CAR STEREO INSTALLER) Dianne Corona RN Note: Patient will monitor [...] Associated Diagnosis Comments OUTSIDE LAB (SCAN ORDER) Routine 01/13/2022 documented in this encounter Results * OUTSIDE LAB (SCAN) (01/13/2022) [facility] A1C 6.2 % [facility] 01/13/2022 [facility] Scanned SCANNING Final Resu lt [facility] documented in this encounter Visit Diagnoses Not on filedocumented in this encounter Additional Health Concerns Infection Onset Date Last Indicated Resolved Time COVID-19 Rule Out 01/13/2022 01/13/2022 01/13/2022 12:48 PM CAR STEREO INSTALLER COVID-19 Rule Out 01/13/2022 01/13/2022 01/14/2022 12:15 AM CAR STEREO INSTALLER Assessment Noted Time PHQ-9 Depression Total Score: 3 12/24/19 22 11:48 AM CDT documented as of this encounter Care Teams Licensed Loan Officer Assistant Relationship Specialty Start Date End Date Sanjeev Webster DO [address] [place] [id number] PCP - General FAMILY PRACTICE 09/25/20 Dianne Johnson, RN [address] [place] [address] Caterers Helper (Ambulatory) REGISTERED NURSE 08/14/20 documented as of this encounter
--- OUTSIDE RECORDS SUMMARY | 2024-03-15 01:02 | XMS_ITS | Encounter Summary ---
Author Organization [facility] Address [facility]. [place], [place] [address] [place] [address] Care Team Providers Care Proof Sorter Name Role Phone Dianne Johnson RN Unavailable [phone] Sanjeev Webster DO Primary Care Provider + Reason for Visit * Reason Onset Date Comments Advice 01/24/2022 Encounter Details Date Type Department Care Team (Late st Contact Info) Description 01/24/2022 Telephone [facility] Medical Group Family & Internal Medicine [id number] [place] [address] Sanjeev Webster DO [facility] [address] [place] [address] Advice Social History Tobacco Use Types Packs/Day [...] Coronavirus/COVID-19? No / Unsure 02/20/2022 1:32 PM PRODUCE WRAPPER documented as of this encounter Functional Status [...] Progress Notes * Shanel Staley MA - 02/28/2022 12:39 PM CST Follow up scheduled for 03/18/22 UCE WRAPPER * Shanel Staley MA - 02/28/2022 10:24 AM CST Tried to contact, no answer. Unable to leave UCE WRAPPER * Scarlett Guerrero MA - 02/26/2022 6:29 PM CST lmtc 02/26/22 UCE WRAPPER * Sanjeev Webster DO - 02/26/2022 3:55 PM CST Pt should schedule a follow up for March; not urgent, just sometime in March for regular follow-up. UCE WRAPPER * Yenifer Ingram MA - 01/28/2022 1:13 PM CST Patient has started the abx she states she is feeling better except for a sore throat mainly on theright side. The patient states she is taking cough medication and has not seen a relief. I advised the patient to finish the abx and let us know after completion if her throat does not feel better. Patient v/u. UCE WRAPPER * Sanjeev Webster DO - 01/24/2022 11:19 AM CST Sent cefdinir. UCE WRAPPER * Scarlett Guerrero MA - 01/24/2022 11:08 AM CST Patient completed her script of augmentin, still coughing with clear plegm, intermittently having headache, runny nose getting chills and feels like she is going to throw up. Symptoms improved slightly but have gotten worse since yesterday. Allergies: Tape Contact Dermatitis High Allergy 11/13/2020 Bacitracin Other (see comment) Not Specified Allergy 11/21/2019 Benzalkonium Other (see comment) Not Specified Allergy 11/21/2019 Gramicidin Other (see comment) Not Specified Allergy 11/21/2019 Hydrocortisone Other (see comment) Not Specified Allergy 11/21/2019 Neomycin Other (see comment) Not Specified Allergy 11/21/2019 Polymyxin B Other (see comment) Not Specified Allergy 11/21/2019 Adverse Reactions/Drug Intolerances Atorvastatin Leg Pain High Side Effect 08/12/2021 Leg pain/cramps Cameron lira #[phone] UCE WRAPPER documented in this encounter Plan of Treatment Upcoming Encounters Date Type Department Care Team (Late st Contact Info) Description 04/14/2024 2:00 PM PRODUCE WRAPPER Office Visit [facility] Medical Group Multispecialty Care - [facility] [address] [facility], [address] [place] [address] Julio Pulido MD 3 [place] [address] documented as of this encounter Goals Goal Patient Goal Type Associated Problems Recent Progress Patient-Stated? Author Health - patient able to perform ADLs independently General On track(2023 9:49 AM CDT) Dianne Corona, RN Note: 12/17/23: Patient stated she is independent with ASL's. Establish Plan for Symptom Monitoring-CHF General On track(2023 11:36 AM PRODUCE WRAPPER) Dianne Corona, RN Note: Patient will recognize [...] Monitoring-COPD General On track(2023 11:36 AM PRODUCE WRAPPER) Dianne Corona, RN Note: Patient will recognize [...] Monitoring-DM General On track(2023 4:33 PM PRODUCE WRAPPER) Dianne Corona RN Note: Patient will manage [...] Monitoring-HTN General On track(2023 4:33 PM PRODUCE WRAPPER) Dianne Corona, RN Note: Patient will monitor B/P several times per week , record readings and report to physician or CC if B/P consistently >130/80 Take your medications as prescribed. Follow up with your provider as scheduled. Take your blood pressure at least several times a week if able. documented as of this encounter Visit Diagnoses Diagnosis Acute non-recurrent maxillary sinusitis- Primary documented in this encounter Additional Health Concerns Assessment Noted Time PHQ-9 Depression Total Score: 3 12/24/19 22 11:48 AM CDT documented as of this encounter Care Teams Proof Sorter Relationship Specialty Start Date End Date Sanjeev Webster DO [address] [place] [address] PCP - General FAMILY PRACTICE 09/25/20 Dianne Johnson RN [address] [place] [address] Product Architect (Ambulatory) REGISTERED NURSE 08/14/20 documented as of this encounter
--- OUTSIDE RECORDS SUMMARY | 2024-03-15 01:02 | XMS_ITS | Encounter Summary ---
Author Organization [facility] Address [address] [place] [address]. [place] [address] [place] [address] Care Team Providers Care Production Packager Name Role Phone Dianne Johnson RN Unavailable [phone] Sanejev Webster DO Primary Care Provider + Reason for Visit * Reason Onset Date Comments Lab Results 01/20/2022 Encounter Details Date Type Department Care Team (Late st Contact Info) Description 01/20/2022 Telephone [facility] Medical [facility] [place] [address] [facility] [place] [address] [place] [address] Panda Moreno MD Lab Results Social History Tobacco Use Types [...] Coronavirus/COVID-19? No / Unsure 01/17/2022 1:30 PM TEXTILE SUPERVISOR documented as of this encounter Functional Status [...] documented in this encounter Progress Notes * Stephania De León RN - 01/20/2022 4:45 PM CST Pt and her daughter in law aware of results and recommendations. ILE SUPERVISOR * Panda Moreno MD - 01/20/2022 3:14 PM CST Please inform pt her lab work showed she has Graves disease per the TSI antibodies Is the new dose of methimazole helping? Also, her work up showed a high ratio of calcium in the urine at 0.016 This means she needs surgery but I understand her fragile situation So, for now, will make sure her thyroid is better controlled and then we can discuss her wishes about the next step ILE SUPERVISOR documented in this encounter Plan of Treatment Upcoming Encounters Date Type Department Care Team (Late st Contact Info) Description 04/14/2024 2:00 PM TEXTILE SUPERVISOR Office Visit [facility] Medical Group Multispecialty Care - [facility] [address] [place] [address] Julio Pulido MD 3 [place] [address] documented as of this encounter Goals Goal Patient Goal Type Associated Problems Recent Progress Patient-Stated? Author Health - patient able to perform ADLs independently General On track(2023 9:49 AM CDT) Dianne Corona, DALE Note: 12/17/23: Patient stated she is independent with ASL's. Establish Plan for Symptom Monitoring-CHF General On track(2023 11:36 AM TEXTILE SUPERVISOR) Dianne Corona, RN Note: Patient will [...] Symptom Monitoring-COPD General On track(2023 11:36 AM TEXTILE SUPERVISOR) Dianne Corona, RN Note: Patient will [...] Symptom Monitoring-DM General On track(2023 4:33 PM TEXTILE SUPERVISOR) Dianne Corona RN Note: Patient will [...] Symptom Monitoring-HTN General On track(2023 4:33 PM TEXTILE SUPERVISOR) Dianne Corona RN Note: Patient will [...] as of this encounter Care Teams Production Packager Relationship Specialty Start Date End Date Sanjeev Webster DO [address] [place] [address] PCP - General FAMILY PRACTICE 09/25/20 Dianne Johnson RN [address] [place] [address] Batch Freezer Operator (Ambulatory) REGISTERED NURSE 08/14/20 documented as of this encounter
--- OUTSIDE RECORDS SUMMARY | 2024-03-15 01:03 | XMS_ITS | Encounter Summary ---
Author Organization [facility] Address [facility] [place] [address] [place] [address] Care Team Providers Care Solid Waste Facility Supervisor Name Role Phone Dianne Johnson RN Unavailable [phone] Sanjeev Webster DO Primary Care Provider + Encounter Details Date Type Department Care Team (Latest Contact Info) Description 11/05/2021 Travel Social History Tobacco Use Types Packs/Day Years Used Date Smoking Tobacco: Never Smokeless Tobacco: Never Comments:non smoker Alcohol Use Standard Drinks/Week Comments Not Currently 0 (1 standard drink = 0.6 oz pur e alcohol) PHQ-2 Answer Date Recorded PHQ-2 Score - If the patient scores above 3, please move on to questions 3-9 0 06/20/2021 Comments No Sex and Gender Information Value Date Recorded Sex Assigned at Not on file Legal Sex Female 11:18 AM CDT Gender Identity Not on file Sexual Orientation Not on file COVID-19 Exposure Response Date Recorded In the last 10 days, have yo u been in contact with someone who was confirmed or suspected to have Coronavirus/COVID-19? No / Unsure 11/05/2021 7:24 PM CDT documented as of this encounter Functional Status * Question Answer Date of Assessment Author Status Do you have serious difficulty walking or climbing stairs? Yes 11/05/2021 7:00 PM CDT Stephanie Rodriguez RN Acti ve * Question Answer Date of Assessment Author Status Do you have difficulty dressing or bathing? No 11/05/2021 7:00 PM CDT Stephanie Rodriguez RN Active Because of a physical, mental, or emotional condition, do you have difficulty doing errands alone such as visiting a doctor's office or shopping? Yes 11/05/2021 7:00 PM CDT Bryce Rodriguez RN Active * RETIRED Are you deaf or do you have serious difficulty hearing Answer Date of Assessment Author Status Yes 10/22/2021 10:00 PM CDT Acti ve * RETIRED Are you blind or do you have serious difficulty seeing, even when wearing glasses? Answer Date of Assessment Author Status Yes 10/22/2021 10:00 PM CDT Acti ve * Do you have serious difficulty walking or climbing stairs? Answer Date of Assessment Author Status Yes 10/22/2021 10:00 PM DARRYLT Tresa Lemons RN Active * Do you have difficulty dressing or bathing? Answer Date of Assessment Author Status No 10/22/2021 10:00 PM Tresa Wilkinson RN Active * Because of a physical, mental, or emotional condition, do you have difficulty doing errands alone such as visiting a doctor's office or shopping? Answer Date of Assessment Author Status Yes 10/22/2021 10:00 PM Tresa Wilkinson RN Active documented as of this encounter Mental Status * Question Answer Entry Date Author Status Because of a physical, mental, or emotional condition, do you have serious difficulty concentrating, remembering, or making decisions? No 11/05/2021 7:00 PM Stephanie Olvera RN Active * Because of a physical, mental, or emotional condition, do you have serious difficulty concentrating, remembering, or making decisions? Answer Entry Date Author Status No 10/22/2021 10:00 PM Tresa Wilkinson RN Active documented in this encounter Plan of Treatment Upcoming Encounters Date Type Department Care Team (Late st Contact Info) Description 04/14/2024 2:00 PM HOME CARE NURSE Office Visit [facility] Medical Group Multispecialty Care - [address], [address] [place] [id number] Julio Pulido MD [address] [place] [address] documented as of this encounter Goals Goal Patient Goal Type Associated Problems Recent Progress Patient-Stated? Author Health - patient able to perform ADLs independently General On track(2023 9:49 AM CDT) Dianne Corona RN Note: 12/17/23: Patient stated she is independent with ASL's. Establish Plan for Symptom Monitoring-CHF General On track(2023 11:36 AM HOME CARE NURSE) Dianne Corona RN Note: Patient will [...] Monitoring-COPD General On track(2023 11:36 AM HOME CARE NURSE) Dianne Corona, DALE Note: Patient will recognize [...] Monitoring-DM General On track(2023 4:33 PM HOME CARE NURSE) Dianne Corona RN Note: Patient will [...] Monitoring-HTN General On track(2023 4:33 PM HOME CARE NURSE) No Dianne Johnson, RN Note: Patient will [...] Assessment Noted Time PHQ-9 Depression Total Score: 0 05/25/19 22 9:23 AM CDT documented as of this encounter Care Teams Solid Waste Facility Supervisor Relationship Specialty Start Date End Date Sanjeev Webster DO [address] [place] [address] PCP - General FAMILY PRACTICE 09/25/20 Dianne Johnson, RN [address] [place] [address] Talent Advisor (Ambulatory) REGISTERED NURSE 08/14/20 documented as of this encounter
--- OUTSIDE RECORDS SUMMARY | 2024-03-15 01:03 | XMS_ITS | Encounter Summary ---
Author Organization [facility] Address [facility]6 [facility] [place] [address] [place] [address] Care Team Providers Care Chimney Builder Helper Name Role Phone Dianne Johnson RN Unavailable [phone] Sanjeev Montez DO Primary Care Provider + Reason for Visit * Reason Onset Date Comments Follow Up Call 11/13/2021 Encounter Details Date Type Department Care Team (Late st Contact Info) Description 11/13/2021 Telephone [facility] Medical Group Family & Internal Medicine [address] [address] Sanjeev Montez DO [address] [place] [id number] Follow Up Call Social History Tobacco [...] suspected to have Coronavirus/COVID-19? No / Unsure 11/15/2021 10:48 AM CDT documented as of this encounter [...] Progress Notes * Dianne Johnson RN - 11/18/2021 8:15 AM CDT You're welcome! * Sanjeev Montez DO - 11/18/2021 7:58 AM CDT Thank you for clarification and assistance. * Dianne Johnson RN - 11/18/2021 7:55 AM CDT Images from the original note were not included. * Dianne Johnson RN - 11/18/2021 7:45 AM CDT Sent message to Eb ARECHIGA via [employer] who completed D/C summary. Awaiting a response. * Sanjeev Montez DO - 11/17/2021 11:49 AM CDT Is there a way to clarify the consider home O2 study at [facility] from swing bed ? My interpretation of this would be that they should consider a 6 minute walk test at [facility] from rehab. * Mike Brown RN - 11/14/2021 3:27 PM CDTAddended by: MIKE BROWN on: 11/14/2021 03:27 PM Modules accepted: Orders * Mike Brown RN - 11/14/2021 3:25 PM CDT Patient's daughter in law notified and verbalized understanding. Opportunity given for all questions to be answered, no further needs voiced at this time. LL-11/14/21 * Sanjeev Montez DO - 11/14/2021 1:04 PM CDTAddended by: SANJEEV MONTEZ on: 11/14/2021 01:04 PM Modules accepted: Orders * Sanjeev Montez DO - 11/14/2021 1:01 PM CDT 1. Should be on low dose potassium; can switch to AM instead. May need to increase fluid intake on day she changes to morning to avoid over diuresis. Will address other issues in office tomorrow. * Dianne Johnson RN - 11/13/2021 4:52 PM CDT D/C from [facility] on 11/12/21. TCM call completed (See note from today 11/13/21 for details.), medications reconciled and appointment with on 11/15/21. Please address the followin. Izzy ([id number]) has Furosemide 60 mg scheduled for patient to take at 8:00 PM. She wants to change it to 8:00 am. If patient takes an evening dose is it safe to take it again in 12 hours? Patient is taking Furosemide 60 mg daily but not on potassium supplement. K+ Level on 11/05/21 was 4.1. Please ask about the above and contact Izzy at [phone]. She takes care of the pill exercise planner. 2. Please have address the following at upcoming appointment: According to notes from [facility]: Acute diverticulitis: resolved F/u CT abd/pelvis revealed acute diverticulitis Completed 6 days of cefoxitin IV ?? Acute hypoxic respiratory failure:??Resolved Secondary to the above patient continues to be maintained on 2 L nasal cannula 1 L while sleeping?? Patient also found to have respiratory acidosis?? Tolerating RA at rest Consider home O2 study at [facility] from swing bed ?? Hyperthyroidism?? Continue methimazole follow-up PCP Consider endocrinology referral 10/30/21 1155 ?? FREE T4 0.76 - 1.46 NG/DL 3.42??High? 10/30/21 1155 ? TSH 0.358 - 3.74 uIU/ML <0.005??Low? Right MCA aneurysm Noted on CTA Also noted per radiology on prior imaging, though direct comparison not available Neurology consulted MRI??brain:??Redemonstrated right MCA bifurcation saccular aneurysm, similar to the prior CT head examination from 10/22/2021 EEG normal Close follow up after discharge? Abnormal abdominal imaging Length of sigmoid colon in the mid pelvis with diffuse wall thickening and surrounding inflammatorystranding mildly worsened from comparison exam. ??No perforation or abscess formation identified within limits of this noncontrast exam. ??Acute diverticulitis is favored. ??Underlying neoplasm not excluded. Follow-up recommended to ensure resolution. Focal nodularity in the gallbladder wall is indeterminate but concerning for neoplasm. ??Follow-up nonemergent right upper quadrant ultrasound recommended if not previously obtained elsewhere. Close outpatient follow up for further imaging. 3. Please see the following: Pertinent Procedures/Imaging performed while inpatient: EXAMINATION: CT Abdomen and Pelvis without contrast EXAM DATE/TIME: 10/27/2021 9:01 AM IMPRESSION: ===== 1. ??Length of sigmoid colon in the mid pelvis with diffuse wall thickening and surrounding inflammatory stranding mildly worsened from comparison exam. ??No perforation or abscess formation identified within limits of this noncontrast exam. ??Acute diverticulitis is favored. ??Underlying neoplasm not excluded. ??Follow-up recommended to ensure resolution. 2. ??Focal nodularity in the gallbladder wall is indeterminate but concerning for neoplasm. ??Follow-up nonemergent right upper quadrant ultrasound recommended if not previously obtained elsewhere. 3. ??Small right and tiny left pleural effusions 4. ??Coronary artery calcifications and atherosclerotic aorta 5. ??Low-density blood pool raises suspicion for anemia ?? EXAMINATION: MRI BRAIN WO CON, 10/25/2021 10:53 PM ??IMPRESSION: 1. ??No acute intracranial abnormality. 2. ??Moderate global cerebral volume loss and mild to moderate chronic small vessel ischemic change. 3. ??Redemonstrated right MCA bifurcation saccular aneurysm, similar to the prior CT head examination from 10/22/2021. ?? 10/22/2021 ??Exam: Chest x-ray: IMPRESSION: 1. ??Enlarged heart. 2. ??Artifact versus some mild increased density in the left lung base. ?? DATE: 10/22/2021 12:[address] angiography of the head. IMPRESSION: 1. 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 Similar findings described on prior catheter angiography examination 08/10/2020, though no images are available for direct comparison?? 4. Any follow up labs/imagining needed: yes - PT/INR completed by 11/14/21. Patient request PT/INR bedone on Thursday11/15/21 at 's office. CC indicated on appointment details. Defer future lab orders to PCP. TSH and Free T4 abnormal. Several labs abnormal. See lab results from hospitalization. 5. FYI: [facility] ([phone]) will contact patient to begin start of [facility] services. Thank you. ?? documented in this encounter Plan of Treatment Upcoming Encounters Date Type Department Care Team (Late st Contact Info) Description 04/14/2024 2:00 PM AUTOMATION AND CONTROLS INSTRUCTOR Office Visit [facility] Medical Group Multispecialty Care - [facility] [address] [facility], [address] [place] [address] Julio Pulido MD [address] [place] [address] documented as of this encounter Goals Goal Patient Goal Type Associated Problems Recent Progress Patient-Stated? Author Health - patient able to perform ADLs independently General On track(2023 9:49 AM CDT) Dianne Corona, RN Note: 12/17/23: Patient stated she is independent with ASL's. Establish Plan for Symptom Monitoring-CHF General On track(2023 11:36 AM AUTOMATION AND CONTROLS INSTRUCTOR) Dianne Corona, RN Note: Patient will recognize [...] Symptom Monitoring-COPD General On track(2023 11:36 AM AUTOMATION AND CONTROLS INSTRUCTOR) Dianne Corona RN Note: Patient will [...] Symptom Monitoring-DM General On track(2023 4:33 PM AUTOMATION AND CONTROLS INSTRUCTOR) Dianne Corona RN Note: Patient will [...] Symptom Monitoring-HTN General On track(2023 4:33 PM AUTOMATION AND CONTROLS INSTRUCTOR) Dianne Corona RN Note: Patient will monitor B/P several times per week , record readings and report to physician or CC if B/P consistently >130/80 Take your medications as prescribed. Follow up with your provider as scheduled. Take your blood pressure at least several times a week if able. documented as of this encounter Visit Diagnoses Diagnosis Hypokalemia- Primary Hypopotassemia documented in this encounter Additional Health Concerns Assessment Noted Time PHQ-9 Depression Total Score: 0 05/25/19 22 9:23 AM CDT documented as of this encounter Care Teams Chimney Builder Helper Relationship Specialty Start Date End Date Sanjeev Montez DO [address] [place] [address] PCP - General FAMILY PRACTICE 09/25/20 Dianne Johnson, RN [address] [place] [address] Material Yard Clerk (Ambulatory) REGISTERED NURSE 08/14/20 documented as of this encounter
--- OUTSIDE RECORDS SUMMARY | 2024-03-15 01:03 | XMS_ITS | Encounter Summary ---
Author Organization [facility] Address [address] [place] [address]. [place] [address] [place] [address] Care Team Providers Care Cold Press Operator Name Role Phone Dianne Johnson RN Unavailable [phone] Sanjeev Webster DO Primary Care Provider + Reason for Visit * Reason Comments Ultrasound (SCAN) Lab (SCAN) Encounter Details Date Type Department Care Team (Late st Contact Info) Description 12/13/2021 Scan HEALTH INFO SRVCS Scanned, Doc Med Group Ultrasound (SCAN); Lab (SCAN) Social History Tobacco Use [...] Info) Description 04/14/2024 2:00 PM VICE PRESIDENT OF MANUFACTURING Office Visit [facility] Medical Group Multispecialty Care - [facility] 3 [facility], [address] [place] [id number] Julio Pulido MD [address] [place] [address] documented as of this encounter Goals Goal Patient Goal Type Associated Problems Recent Progress Patient-Stated? Author Health - patient able to perform ADLs independently General On track(2023 9:49 AM CDT) Dianne Corona, RN Note: 12/17/23: Patient stated she is independent with ASL's. Establish Plan for Symptom Monitoring-CHF General On track(2023 11:36 AM VICE PRESIDENT OF MANUFACTURING) Dianne Corona, RN Note: Patient will recognize [...] General On track(2023 11:36 AM VICE PRESIDENT OF MANUFACTURING) Dianne Corona RN Note: Patient will recognize [...] General On track(2023 4:33 PM VICE PRESIDENT OF MANUFACTURING) Dianne Corona RN Note: Patient will manage [...] General On track(2023 4:33 PM VICE PRESIDENT OF MANUFACTURING) No Johnson, Dianne R, RN Note: Patient [...] Associated Diagnosis Comments OUTSIDE LAB (SCAN ORDER) 12/13/2021 ULTRASOUND GENERIC (SCAN ORDER) 12/13/2021 ULTRASOUND GENERIC (SCAN ORDER) 12/13/2021 documented in this encounter Results * OUTSIDE LAB (SCAN) (12/13/2021) 12/13/2021 [facility] Scanned SCANNING Final Resu lt * ULTRASOUND GENERIC (12/13/2021) Anatomical Region Laterality Modality Other 12/13/2021 [facility] Scanned SCANNING Final Resu lt * ULTRASOUND GENERIC (12/13/2021) Anatomical Region Laterality Modality Other 12/13/2021 [facility] Scanned SCANNING Final Resu lt documented in this encounter Visit Diagnoses Not on filedocumented in this encounter Additional Health Concerns Assessment Noted Time PHQ-9 Depression Total Score: 2 11/26/19 22 3:14 PM CDT documented as of this encounter Care Teams Cold Press Operator Relationship Specialty Start Date End Date Sanjeev Webster DO [address] [place] [id number] PCP - General FAMILY PRACTICE 09/25/20 Dianne Johnson, RN [address] [place] [address] Label Maker (Ambulatory) REGISTERED NURSE 08/14/20 documented as of this encounter
--- OUTSIDE RECORDS SUMMARY | 2024-03-15 01:03 | XMS_ITS | Encounter Summary ---
Author Organization [facility] Address [facility]6 [facility] [place] [address] [place] [address] Care Team Providers Care Race Engine Builder Name Role Phone Dianne Johnson RN Unavailable [phone] Sanjeev Webster DO Primary Care Provider + Encounter Details Date Type Department Care Team (Latest Contact Info) Description 12/06/2021 Scan HEALTH INFO SRVCS Scanned, Documents Social History Tobacco Use Types Packs/Day Years [...] st Contact Info) Description 04/14/2024 2:00 PM CRUDE OIL TREATER Office Visit [facility] Medical Group Multispecialty Care - [facility] [address] [facility], [address] [place] [phone] Julio Pulido MD [address] [place] [address] documented as of this encounter Goals Goal Patient Goal Type Associated Problems Recent Progress Patient-Stated? Author Health - patient able to perform ADLs independently General On track(2023 9:49 AM CDT) No Dianne Johnson RN Note: 12/17/23: Patient stated she is independent with ASL's. Establish Plan for Symptom Monitoring-CHF General On track(2023 11:36 AM CRUDE OIL TREATER) Dianne Corona, RN Note: Patient will recognize [...] Symptom Monitoring-COPD General On track(2023 11:36 AM CRUDE OIL TREATER) Dianne Corona RN Note: Patient will recognize [...] Symptom Monitoring-DM General On track(2023 4:33 PM CRUDE OIL TREATER) Dianne Corona RN Note: Patient will manage [...] Symptom Monitoring-HTN General On track(2023 4:33 PM CRUDE OIL TREATER) Dianne Corona RN Note: Patient will monitor [...] documented as of this encounter Care Teams Race Engine Builder Relationship Specialty Start Date End Date Sanjeev Webster DO [address] [place] [address] PCP - General FAMILY PRACTICE 09/25/20 Dianne Johnson, RN [address] [place] [address] Transcription Coordinator (Ambulatory) REGISTERED NURSE 08/14/20 documented as of this encounter
--- OUTSIDE RECORDS SUMMARY | 2024-03-15 01:03 | XMS_ITS | Encounter Summary ---
Author Organization [facility] Address [facility]6 [facility] [place] [place] [address] [place] [address] Care Team Providers Care Automobile Body Repairer Name Role Phone Casey Johnson RN Unavailable [phone] Sanjeev Webster DO Primary Care Provider + Reason for Visit * Reason Onset Date Comments Care Management 12/11/2021 Encounter Details Date Type Department Care Team (Late st Contact Info) Description 12/11/2021 Patient Outreach [facility] Medical Group Family & Internal Medicine [address] [address] Casey Johnson, RN [address] [place] [address] Care Management Social History Tobacco Use Types Packs/Day Years Used Date Smoking Tobacco: Never Smokeless Tobacco: Never Comments:non smoker Alcohol Use Standard Drinks/Week Comments Not Currently 0 (1 standard drink = 0.6 oz pur e alcohol) PHQ-2 Answer Date Recorded PHQ-2 Score - If the patient scores above 3, please move on to questions 3-9 0 11/25/2021 Comments No Sex and Gender Information Value Date Recorded Sex Assigned at Not on file Legal Sex Female 11:18 AM CDT Gender Identity Not on file Sexual Orientation Not on file COVID-19 Exposure Response Date Recorded In the last 10 days, have yo u been in contact with someone who was confirmed or suspected to have Coronavirus/COVID-19? No / Unsure 11/25/2021 2:55 PM CDT documented as of this encounter [...] Progress Notes * Casey Johnson RN - 12/11/2021 7:24 AM CDT Chronic Care Management: 12/11/21: Left message to return phone call. 12/11/21: Patient returned phone call and left a message to contact her. 12/11/21: Contacted patient. See below for details. Patient concerns or urgent matters that need addressed: None identified during this phone call. Patient Status: Contacted patient today to find out if she received letter CC sent her with upcoming appointments. Patient stated the information she received in the mail was blank. Informed patient that CC is reviewing letter now and it states specific appointments with details. Printed off another letter and explained CC will mail the letter again today. Informed patient on the back side of the letter it's blank but the front side has all the appointment details. Encouraged patient to look at letter again when she gets home tonight. CC will go a head and send another letter out. Denies s/s of COPD or CHF exacerbation at this time. Patient stated she seen . Updated chart in [facility] and patient was seen on 12/06/21. Encouraged patient to schedule an retinopathy eye examination. Patient stated she still needs to schedule eyeappointment. Endocrinology is supposed to contact patient with an appointment. Reviewed appointment details with patient today. Informed patient [facility] arrive at 10:15 am. NPO for 8 hours. After ultrasound go to outpatient laboratory at [place] and get lab work done. Patient stated the appointments tomorrow correct? Informed patient that tomorrow is and her appointment is Thursday. Patient insisted tomorrow was Thursday. After she thought about it she said CC is right. Tomorrowis . Stated she went to weigh herself today and she lost another 7 lbs. Congratulated patient on doing so well. She weighs in every Thursday and so far she stated she's lost 20 lbs. Encouraged patient to monitor s/s of CHF and COPD. Contact office or CC at the onset of any changes. 12/11/21: Printed letter again. Confirmed all information on letter. Sealed in envelope and mailed today. Plan of Care: mortgage coordinator will continue to follow up by phone, provide resources when needed, educate on disease management, and assess chronic conditions. Patient will schedule eye examination.Appointment pending with Endocrinology at this time. Patient Goals: Goals Addressed This Visit's Progress [...] this time. 11/27/21: Denies issues at present. ??? Establish Plan for Symptom Monitoring-COPD On [...] this time. 11/26/21: Denies issues at present. Upcoming Visit Appointments: Future Appointments Date Time Provider Department Center 12/23/2021 10:40 AM Sanjeev Webster DO [id number] 12/26/2021 8:00 AM MD BYRON Choi [facility] [place] 02/17/2022 11:00 AM ALEX INFUSION RM 6 [facility] ALEX Quality care gaps: Health Maintenance Topic Date Due ??? Diabetes: Retinopathy Eye Exam Never done ??? Medicare Wellness Visit Never done ??? Zoster Vaccines (2 of 3) 02/19/2016 ??? COVID-19 Vaccine (5 - Booster for Pfizer series) 10/24/2021 ??? Influenza Adult (1) 12/07/2021 ??? Hemoglobin A1C 02/28/2022 ??? Lipid Panel 08/29/2022 ??? DTaP, Tdap and Td Vaccines (3 - Td or Tdap) 09/05/2030 ??? DEXA SCAN (GENERAL) Completed ??? Pneumococcal Vaccine: 65+ Years Completed ??? Hepatitis C Completed ??? Meningococcal Vaccine Aged Out Problem List: Patient Active Problem List Diagnosis ??? Abnormal stress test ??? Chronic anticoagulation ??? Coronary artery disease involving karuk coronary artery of karuk heart without angina pectoris ??? Dyspnea on [...] Hypertension associated with type 2 diabetes mellitus ([facility]) Medications: Current Outpatient Medications Medication Sig [...] total) by mouth daily. 90 tablet 1 No current facility-administered medications for this visit. Chronic Care Management- Time Spent with Patient Time spent with patient (minutes): 13 Time spent performing chart review (minutes): 9 Total time (minutes): 22 CASEY JOHNSON RN I reviewed the patient's status and education provided by CASEY JOHNSON RN. I agree with the findings and recommendations made. Cosigned by Sanjeev Webster DO at 12/15/2021 10:37 PM CDT documented in this encounter Plan of Treatment Upcoming Encounters Date Type Department Care Team (Late st Contact Info) Description 04/14/2024 2:00 PM PACKER Office Visit [facility] Medical Group Multispecialty Care - [facility] [address] [facility], [address] [place] [address] Julio Pulido MD [address] [place] [address] documented as of this encounter Goals Goal Patient Goal Type Associated Problems Recent Progress Patient-Stated? Author Health - patient able to perform ADLs independently General On track(2023 9:49 AM CDT) Casey Corona RN Note: 12/17/23: Patient stated she is independent with ASL's. Establish Plan for Symptom Monitoring-CHF General On track(2023 11:36 AM PACKER) Casey Corona RN Note: Patient will recognize [...] Symptom Monitoring-COPD General On track(2023 11:36 AM PACKER) Casey Corona RN Note: Patient will recognize [...] Symptom Monitoring-DM General On track(2023 4:33 PM PACKER) Casey Corona RN Note: Patient will manage [...] Symptom Monitoring-HTN General On track(2023 4:33 PM PACKER) Casey Corona RN Note: Patient will monitor [...] Chronic obstructive pulmonary disease, unspecified COPD type ([facility])- Primary Chronic heart failure with preserved ejection fraction (HFpEF) ([facility]) documented in this encounter Additional Health Concerns Assessment Noted Time PHQ-9 Depression Total Score: 2 11/26/19 22 3:14 PM CDT documented as of this encounter Care Teams Automobile Body Repairer Relationship Specialty Start Date End Date Sanjeev Webster DO [address] [place] [id number] PCP - General FAMILY PRACTICE 09/25/20 Casey Johnson, RN [address] [place] [address] Associate Vice President (Ambulatory) REGISTERED NURSE 08/14/20 documented as of this encounter
--- OUTSIDE RECORDS SUMMARY | 2024-03-15 01:03 | XMS_ITS | Encounter Summary ---
Author Organization [facility] Address [facility]. [place], [place] [address] [place] [address] Care Team Providers Care Rail Car Welder Name Role Phone Dianne Johnson RN Unavailable [phone] Sanjeev Webster DO Primary Care Provider + Reason for Visit * Reason Comments Diabetes Encounter Details Date Type Department Care Team (Late st Contact Info) Description 12/23/2021 10:40 AM CDT Office Visit [facility] Family & Internal Medicine [address] [phone] Sanjeev Webster DO [address] [place] [id number] Diabetes Social History Tobacco Use Types Packs/Day Years [...] Sign Reading Time Taken Comments Blood Pressure 132/70 12/23/2021 11:01 AM CDT Pulse 78 12/23/2021 11:01 AM CDT Temperature 36.3 ??C (97.3 ??F) 12/23/2021 11:01 AM C DT Respiratory Rate 16 12/23/2021 11:01 AM CDT Oxygen Saturation 98% 12/23/2021 11:01 AM CDT Inhaled Oxygen Concentration - - Weight 74.4 kg (164 lb) 12/23/2021 11:01 AM CDT Height 165.1 cm (5' 5 ) 12/23/2021 11:01 AM CDT Body Mass Index 27.29 12/23/2021 11:01 AM CDT documented in this encounter Functional [...] documented in this encounter Progress Notes * DO Douglas Santamaria 12/23/2021 10:40 AM CDT Images from the original note were not included. GENERAL OFFICE VISIT Encounter Date: 12/23/2021 Chief Complaint: 76-year-old female presents for Diabetes HPI: Pt has hyperthyroidism. Pt has continued to have weight loss despite taking medications as prescribed. She lost approximately 10 lbs since last OV. Pt was going to have a thyroid uptake scan for this, but due to her multiple hospitalizations this did not occur. Pt had repeat ultrasound of gallbladder on 12/13/21. It showed suspicious findings for cirrhosis but not for specific issues with the gallbladder specifically. She has not been evaluated for cirrhosis thus far as far as pt is aware. Pt is overweight and has metabolic diseases. Pt has never used alcohol in excess. Pt has had normal liver enzymes and negative Hep C screening. Pt had phosphorous and PTH repeated recently. Her phosphorus was WNL at 3.2 but PTH is elevated. She is needing to f/u with endocrine for this issue. Pt is scheduled with neurology for 12/26/21. Pt will need an A1c to check her diabetes. Review of Systems Constitutional: Positive for unexpected weight change. Respiratory: Negative for shortness of breath. Cardiovascular: Negative for chest pain. Gastrointestinal: Negative for abdominal pain. Endocrine: See HPI Patient Active Problem List Diagnosis ??? Abnormal stress test ??? Chronic anticoagulation ??? Coronary artery disease involving [place] coronary artery of [place] heart without angina pectoris ??? Dyspnea on [...] 02/26/2012, 11/30/2013, 12/07/2014, 12/25/2016, 12/03/2017, 12/13/2018 ??? [employer] COVID-19 (ESTEVES CAP), MRNA, LNP-S, PF, 30 [...] 09/05/2020 ??? Tetanus/Diptheria 07/22/2014 ??? Zoster (Zostavax) 37508 Unt/0.65Ml 12/25/2015 Current Outpatient Medications Medication Sig [...] seen in office. 30 tablet 0 ??? lisinopril (PRINIVIL) 2.5 MG tablet [...] by mouth daily. 30 tablet 2 ??? lidocaine 5 % Apply pain patch to affected area. Change after 12 hours. 6 patch 0 No current facility-administered medications [...] No further refills until seen in office. ??? lisinopril (PRINIVIL) 2.5 MG tablet Take 1 tablet (2.5 mg total) by mouth daily. ??? methIMAzole (TAPAZOLE) 10 MG tablet Take 1 tablet (10 mg total) by mouth daily. ??? metoprolol tartrate (LOPRESSOR) 25 MG [...] TABLET BY MOUTH NIGHTLY AT BEDTIME ??? traZODone (DESYREL) Tab 25 mg (50 mg split tab) Take 1 split tab (25 mg total) by mouth nightlyat bedtime for 30 days. ??? VENLAFAXINE XR 150 MG 24 hr capsule Take 1 capsule by mouth once daily (Patient taking differently: Take 150 mg by mouth daily.) ??? warfarin (COUMADIN) 4 MG tablet Take 1 tablet (4 mg total) by mouth daily. ??? lidocaine 5 % Apply pain patch to affected area. Change after 12 hours. No current facility-administered medications on file prior to visit. Allergies Allergen Reactions ??? Atorvastatin Leg Pain Leg pain/cramps. Resolved after stopping. ??? Tape Contact Dermatitis ??? Bacitracin Other (see comment) ??? Benzalkonium Other (see comment) ??? Gramicidin Other (see comment) ??? Hydrocortisone Other (see comment) ??? Neomycin Other (see comment) ??? Polymyxin B Other (see comment) Objective: Filed Vitals: 12/23/21 1101 BP: 132/70 Pulse: 78 Resp: 16 Temp: 97.3 ??F (36.3 ??C) SpO2: 98% Weight: 74.4 kg (164 lb) Height: 5' 5 (1.651 m) Physical Exam Vitals and nursing note reviewed. Constitutional: Comments: Thinner in appearance compared to previous HENT: Head: Normocephalic and atraumatic. [...] & Plan: Radha was seen today for diabetes. Diagnoses and all orders for this visit: Cirrhosis of liver without ascites, unspecified hepatic cirrhosis type (CMS/HCC) - PROTIME/INR, VENOUS; Future - HEMOGLOBIN, GLYCOSYLATED; Future - HEPATITIS B SURFACE ANTIBODY; Future - HEPATITIS B CORE ANTIBODY; Future - IRON SAT PANEL (IRON,IBC,%SAT); Future - HEPATITIS B SURFACE AG, EIA; Future - CERULOPLASMIN; Future - HENRI W/REFLEX; Future - FERRITIN; Future - HEPATIC FUNCTION PANEL; Future - PROTIME/INR, VENOUS - HEMOGLOBIN, GLYCOSYLATED - HEPATITIS B SURFACE ANTIBODY - HEPATITIS B CORE ANTIBODY - IRON SAT PANEL (IRON,IBC,%SAT) - HEPATITIS B SURFACE AG, EIA - CERULOPLASMIN - HENRI W/REFLEX - FERRITIN - HEPATIC FUNCTION PANEL Type 2 diabetes mellitus with diabetic peripheral angiopathy without gangrene, without long-term current use of insulin (CMS/HCC) - PROTIME/INR, VENOUS; Future - HEMOGLOBIN, GLYCOSYLATED; Future - HEPATITIS B SURFACE ANTIBODY; Future - HEPATITIS B CORE ANTIBODY; Future - IRON SAT PANEL (IRON,IBC,%SAT); Future - HEPATITIS B SURFACE AG, EIA; Future - CERULOPLASMIN; Future - HENRI W/REFLEX; Future - FERRITIN; Future - HEPATIC FUNCTION PANEL; Future - PROTIME/INR, VENOUS - HEMOGLOBIN, GLYCOSYLATED - HEPATITIS B SURFACE ANTIBODY - HEPATITIS B CORE ANTIBODY - IRON SAT PANEL (IRON,IBC,%SAT) - HEPATITIS B SURFACE AG, EIA - CERULOPLASMIN - HENRI W/REFLEX - FERRITIN - HEPATIC FUNCTION PANEL Need for immunization against influenza - [37167] INFLUENZA VIRUS VACCINE, SPLIT VIRUS 0.7 mL (SINGLE DOSE SYRINGE FLUZONE HIGH DOSE) Chronic anticoagulation - warfarin (COUMADIN) 5 MG tablet; Take 1 tablet (5 mg total) by mouth daily. - PROTIME/INR, VENOUS; Future - HEMOGLOBIN, GLYCOSYLATED; Future - HEPATITIS B SURFACE ANTIBODY; Future - HEPATITIS B CORE ANTIBODY; Future - IRON SAT PANEL (IRON,IBC,%SAT); Future - HEPATITIS B SURFACE AG, EIA; Future - CERULOPLASMIN; Future - HENRI W/REFLEX; Future - FERRITIN; Future - HEPATIC FUNCTION PANEL; Future - PROTIME/INR, VENOUS - HEMOGLOBIN, GLYCOSYLATED - HEPATITIS B SURFACE ANTIBODY - HEPATITIS B CORE ANTIBODY - IRON SAT PANEL (IRON,IBC,%SAT) - HEPATITIS B SURFACE AG, EIA - CERULOPLASMIN - HENRI W/REFLEX - FERRITIN - HEPATIC FUNCTION PANEL Hyperthyroidism - THYROID STIM HORMONE, TSH; Future - THYROXINE, FREE (FT4); Future - THYROID STIM HORMONE, TSH - THYROXINE, FREE (FT4) Secondary hyperparathyroidism (CMS/HCC) Discussion/Summary: Will order testing as per above to further evaluate for possible cirrhosis of liver. Will order A1cand thyroid labs. Will reach out to endocrine to see if pt is able to be seen sooner; emphasized need of pt to follow-up with them given her weight loss. Will order PT/INR to be done at the end of the week and sent out 5 mg to start tonight. Will give flu shot today. Will have pt f/u in 3-4 weeks for continued close follow-up. Pt v/u. I spent 40 minutes today reviewing the patient's medical record, obtaining history, performing an exam, ordering medications, tests, and/or procedures, documenting in the medical record, referring and/or communicating with other health care providers, counseling and educating the patient/family/caregiver, reviewing and communicating test results and coordination of care. Sanjeev Webster DO documented in this encounter Plan of Treatment Upcoming Encounters Date Type Department Care Team (Late st Contact Info) Description 04/14/2024 2:00 PM DISCOUNT CLERK Office Visit [facility] Multispecialty Care - [facility] [address] [facility], [address] [place] [id number] Julio Pulido MD [address] [place] [address] Scheduled Orders Name Type Priority Associated Diagnoses Orde r Schedule PROTIME/INR, VENOUS Lab Routine Chronic anticoagulation Cirrhosis of liver without ascites, unspecified hepatic cirrhosis type (CMS/HCC HHS/HCC) Type 2 diabetes mellitus with diabetic peripheral angiopathy without gangrene, without long-term current use of insulin (CMS/HCC HHS/HCC) Expected: 12/23/2021, Expires: 12/23/2022 HEMOGLOBIN, GLYCOSYLATED Lab Routine Chronic anticoagulation Cirrhosis of liver without ascites, unspecified hepatic cirrhosis type (CMS/HCC HHS/HCC) Type 2 diabetes mellitus with diabetic peripheral angiopathy without gangrene, without long-term current use of insulin (CMS/HCC HHS/HCC) Expected: 12/23/2021, Expires: 12/23/2022 HEPATITIS B SURFACE ANTIBODY Lab Routine Chronic anticoagulation Cirrhosis of liver without ascites, unspecified hepatic cirrhosis type (CMS/HCC HHS/HCC) Type 2 diabetes mellitus with diabetic peripheral angiopathy without gangrene, without long-term current use of insulin (CMS/HCC HHS/HCC) Expected: 12/23/2021, Expires: 12/23/2022 HEPATITIS B CORE ANTIBODY Lab Routine Chronic anticoagulation Cirrhosis of liver without ascites, unspecified hepatic cirrhosis type (CMS/HCC HHS/HCC) Type 2 diabetes mellitus with diabetic peripheral angiopathy without gangrene, without long-term current use of insulin (CMS/HCC HHS/HCC) Expected: 12/23/2021, Expires: 12/23/2022 IRON SAT PANEL (IRON,IBC,%SAT) Lab Routine Chronic anticoagulation Cirrhosis of liver without ascites, unspecified hepatic cirrhosis type (CMS/HCC HHS/HCC) Type 2 diabetes mellitus with diabetic peripheral angiopathy without gangrene, without long-term current use of insulin (CMS/HCC HHS/HCC) Expected: 12/23/2021, Expires: 12/23/2022 HEPATITIS B SURFACE AG, EIA Lab Routine Chronic anticoagulation Cirrhosis of liver without ascites, unspecified hepatic cirrhosis type (CMS/HCC HHS/HCC) Type 2 diabetes mellitus with diabetic peripheral angiopathy without gangrene, without long-term current use of insulin (CMS/HCC HHS/HCC) Expected: 12/23/2021, Expires: 12/23/2022 CERULOPLASMIN Lab Routine Chronic anticoagulation Cirrhosis of liver without ascites, unspecified hepatic cirrhosis type (CMS/HCC HHS/HCC) Type 2 diabetes mellitus with diabetic peripheral angiopathy without gangrene, without long-term current use of insulin (CMS/HCC HHS/HCC) Expected: 12/23/2021, Expires: 12/23/2022 HENRI W/REFLEX Lab Routine Chronic anticoagulation Cirrhosis of liver without ascites, unspecified hepatic cirrhosis type (CMS/HCC HHS/HCC) Type 2 diabetes mellitus with diabetic peripheral angiopathy without gangrene, without long-term current use of insulin (CMS/HCC HHS/HCC) Expected: 12/23/2021, Expires: 12/23/2022 FERRITIN Lab Routine Chronic anticoagulation Cirrhosis of liver without ascites, unspecified hepatic cirrhosis type (CMS/HCC HHS/HCC) Type 2 diabetes mellitus with diabetic peripheral angiopathy without gangrene, without long-term current use of insulin (CMS/HCC HHS/HCC) Expected: 12/23/2021, Expires: 12/23/2022 HEPATIC FUNCTION PANEL Lab Routine Chronic anticoagulation Cirrhosis of liver without ascites, unspecified hepatic cirrhosis type (CMS/HCC HHS/HCC) Type 2 diabetes mellitus with diabetic peripheral angiopathy without gangrene, without long-term current use of insulin (CMS/HCC HHS/HCC) Expected: 12/23/2021, Expires: 12/23/2022 THYROID STIM HORMONE, TSH Lab Routine Hyperthyroidism Expected: 12/23/2021, Expires: 12/23/2022 THYROXINE, FREE (FT4) Lab Routine Hyperthyroidism Expected: 12/23/2021, Expires: 12/23/2022 documented as of this encounter Goals Goal Patient Goal Type Associated Problems Recent Progress Patient-Stated? Author Health - patient able to perform ADLs independently General On track(2023 9:49 AM CDT) Dianne Corona RN Note: 12/17/23: Patient stated she is independent with ASL's. Establish Plan for Symptom Monitoring-CHF General On track(2023 11:36 AM DISCOUNT CLERK) Dianne Corona RN Note: Patient will [...] Symptom Monitoring-COPD General On track(2023 11:36 AM DISCOUNT CLERK) Dianne Corona RN Note: Patient will [...] Symptom Monitoring-DM General On track(2023 4:33 PM DISCOUNT CLERK) Dianne Corona RN Note: Patient will [...] Symptom Monitoring-HTN General On track(2023 4:33 PM DISCOUNT CLERK) Dianne Corona RN Note: Patient will monitor B/P several times per week , record readings and report to physician or CC if B/P consistently >130/80 Take your medications as prescribed. Follow up with your provider as scheduled. Take your blood pressure at least several times a week if able. documented as of this encounter Visit Diagnoses Diagnosis Cirrhosis of liver without ascites, unspecified hepatic cirrhosis type ([facility])- Primary Type 2 diabetes mellitus with diabetic peripheral angiopathy without gangrene, without long-term current use of insulin ([facility]) Need for immunization against influenza Need for prophylactic vaccination and inoculation against influenza Chronic anticoagulation Encounter for long-term (current) use of anticoagulants Hyperthyroidism Thyrotoxicosis without mention of goiter or other cause, without mention of thyrotoxic crisis or storm Secondary hyperparathyroidism ([facility]) Secondary hyperparathyroidism (of renal origin) documented in this encounter Additional Health Concerns Assessment Noted Time PHQ-9 Depression Total Score: 3 12/24/19 22 11:48 AM CDT documented as of this encounter Care Teams Rail Car Welder Relationship Specialty Start Date End Date Sanjeev Webster DO [address] [place] [id number] PCP - General FAMILY PRACTICE 09/25/20 Dianne Johnson, RN [address] [place] [address] Nursery Teacher (Ambulatory) REGISTERED NURSE 08/14/20 documented as of this encounter
--- OUTSIDE RECORDS SUMMARY | 2024-03-15 01:03 | XMS_ITS | Encounter Summary ---
Author Organization [facility] Address [facility] [place] [address] [place] [address] Care Team Providers Care Signal Tester Name Role Phone Dianne Johnson RN Unavailable [phone] Sanjeev Webster DO Primary Care Provider + Reason for Visit * Reason Onset Date Comments Referral 12/19/2021 Responding to me ssage from Silvana. Patient's referral has been received. Left voice mail message for patient this morning (12/19/2021) to call to schedule New Patient appt per referral. Thank you. Encounter Details Date Type Department Care Team (Late st Contact Info) Description 12/19/2021 Telephone [facility] Family & Internal Medicine [address] [phone] Sanjeev Webster DO [address] [place] [phone] Referral (Responding to message from Silvana. Patient's referral has been received. Left voice mail message for patient this morning (12/19/2021) to call to schedule New Patient appt per referral. Thank you.) Social History Tobacco Use Types Packs/Day Years [...] st Contact Info) Description 04/14/2024 2:00 PM JOINT YARNER Office Visit [facility] Multispecialty Care - [address], [address] [place] [phone] Julio Pulido MD [address] [place] [address] [place] [address] documented as of this encounter Goals Goal Patient Goal Type Associated Problems Recent Progress Patient-Stated? Author Health - patient able to perform ADLs independently General On track(2023 9:49 AM CDT) Dianne Corona RN Note: 12/17/23: Patient stated she is independent with ASL's. Establish Plan for Symptom Monitoring-CHF General On track(2023 11:36 AM JOINT YARNER) Dianne Corona, RN Note: Patient will recognize [...] Symptom Monitoring-COPD General On track(2023 11:36 AM JOINT YARNER) Dianne Corona RN Note: Patient will recognize [...] Symptom Monitoring-DM General On track(2023 4:33 PM JOINT YARNER) Dianne Corona, RN Note: Patient will manage [...] Symptom Monitoring-HTN General On track(2023 4:33 PM JOINT YARNER) No Dianne Johnson, RN Note: Patient will [...] documented as of this encounter Care Teams Signal Tester Relationship Specialty Start Date End Date Sanjeev Webster DO [address] [place] [phone] PCP - General FAMILY PRACTICE 09/25/20 Dianne Johnson, RN [address] [place] [address] Facility Maintenance Mechanic (Ambulatory) REGISTERED NURSE 08/14/20 documented as of this encounter
--- OUTSIDE RECORDS SUMMARY | 2024-03-15 01:03 | XMS_ITS | Encounter Summary ---
Author Organization [facility] Address [facility]6 [facility] [place] [address] [place] [address] Care Team Providers Care Employee Development Specialist Name Role Phone Casey Johnson RN Unavailable [phone] Sanjeev Webster DO Primary Care Provider + Reason for Visit * Reason Onset Date Comments Care Management 12/03/2021 Encounter Details Date Type Department Care Team (Late st Contact Info) Description 12/03/2021 Patient Outreach [facility] Medical Group Family & Internal Medicine [address] [address] Casey Johnson, RN [address] [place] [address] Care Management Social History Tobacco [...] Progress Notes * Casey Johnson RN - 12/03/2021 9:54 AM CDT Chronic Care Management: 12/03/21: Left message to return phone call. 12/03/21: Contacted Cih with [facility] services. He stated multiple attempts have been made to reach out to patient without a response. 12/03/21: Patient returned phone call. See below for details. Patient concerns or urgent matters that need addressed: Patient stated she received paper work from after her visit on 11/25/21. She hasn't had the lab work done and needs to know if she should be fasting. Reviewed after visit summary with patient and it states the followin. We have ordered labs for you to do at [facility]. We have handed these to you. Patient confirms she has the lab orders. 12/03/21: Contacted [facility] main laboratory and left a message to return phone call. 12/03/21: Contacted laboratory again at [phone]. No fasting required for testing. 2. Please obtain the ultrasound of your abdomen at [facility] as scheduled. 12/03/21: Contacted Ramon at imaging center at [facility] to find out if patient is scheduled for a ultrasound of abdomen. Stated she has the order from 11/25/21 but patient is not scheduled. Scheduled patient for Ultrasound on 12/10/21 at 8:00 am arriving at 7:45 am, fasting 8 hours prior. Scheduled at [place] [id number] [facility] [address] 1st floor on the left. 12/03/21: Contacted Ely in the referral department with [facility]. Stated no authorization needed for US from [facility]. 12/03/21: Patient stated she can't make 12/10/21 appointment she has something else scheduled. She prefers a Thursday or Thursday appointment. 12/03/21: Contacted [facility] and spoke to Sallie. Rescheduled appointment for 12/13/21 at 10:30 am. Arrive at 10:15 am. NPO 8 hours prior. 3. Here are the specialists you need to schedule with: endocrinology Dr. Moreno at [facility], eye doctor at [facility] in [place], cardiology Dr. Ordoñez. 12/03/21: Patient stated she will schedule an appointment with and reschedule her appointment with Eye doctor. She is not aware of an appointment with . Contacted the referral center with [facility] and spoke to Maddison regarding referral to Dennis (). Maddison stated they are working on it today. She will send records to Endo office and someone from 's office will be reaching out to her. 4. You have an appointment with Dr. Padilla in December. Please ensure you attend this office visit. Dr.Raghavi Padilla (Neurology Specialist) 12/26/21 at 8:00 am arrive by 7:45 am. [address] [facility], [address] [place] [address] Patient Status: Contacted patient today. Denies any issues with sob or swelling. Continues to get her weight checked on Thursday's and denies increase in weight. Patient is not checking her BG and she is not takingany medication for diabetes at this time. Informed patient that CC will send her a letter in the mail regarding the appointments above. Patient stated she really appreciates it. She declines [facility] services at this time. Encouraged to call with any questions or concerns. 12/03/21: Letter regarding appointments mailed to patient's home today. Plan of Care: loan coordinator will continue to follow up by [...] this time. 11/26/21: Denies issues at present. ??? Establish Plan for Symptom Monitoring-DM On [...] any DM medications at this time. ??? Health - patient able to perform ADLs independently On track 09/25: Patient is independent with ADL's. 10/05: Patient independent with ADL's. Stated she has a built in shower seat in shower with hand rails. Stated she uses a cane most of the time but when her back hurts really bad she uses a walker. Stated when she stands to wash dishes her back hurts. Reports Tylenol or [place] helps a little. Message sent to Bebe BHATTI) to find out the status on food production worker. 10/23/20: Independent with ADL's. 12/10/20: Patient having issues sweeping etc since right hand fx. Stated she will contact [employer] out if another food production worker will be helping her. Stated she prefers to wait until after she comes back from visiting her son in [place]. 12/27/20: Patient stated she is having issues getting a food production worker due to [employer] being short staffed. Stated she plans on calling them back today to find out status. Stated her pastors daughter put in application to help her about 1 1/2 months ago but she hasn't received a call. Stated she will call them today. 01/11/21: insulation worker apprentice will start on Thursday and help patient with house cleaning on . 02-19-21: Patient is bathing self with use of long-handled sponge and dressed self, but reports ADLS are difficult due to the pain. Choreworker cleans for the patient and patient reports this helps alot. 03/14/21: Patient is getting a new Choreworker that will start 03/18/21 and will come clean on Mondaysand . Patient able to bathe and dress self. 03/27/21: Patient stated she is weak since hospitalization. Denies ambulating with assisted device. Stated she has a walker if needed. Patient goes to [employer] (take of pounds sensibly) on Thursday mornings. 04/03/21: Patient stated she is getting a new food production worker next week to help clean her home. Denies any recent falls. 04/10/21: Patient's [id number] is filling mediplanner for the patient. 04/29/21: Patient stated the food production worker did not show up again. Gave patient number to [employer]. She wrote it down and will call for assistance. 05/24/21: Choreworker has not been coming and patient unsure why. Patient has number to call to check on status, but just hasn't done that yet. 07/29/21: [id number] fills pill maintenance planner and has an alarm on it to take morning and evening. Shecooks her own meals and currently doesn't have a food production worker. Stated she doesn't need one right now. 08/12/21: Patient independent with ADL's. [id number] fixes her pill maintenance planner and will be doing this today. 11/27/21: Patient independent with ADL's. Stated she can do her laundry etc. Needs someone to sweep and mop her floors. Gave patient phone number to [employer] [facility]. She had food production worker set up through them in the past. Upcoming Visit Appointments: Future Appointments Date Time Provider Department Center 12/23/2021 10:40 AM Sanjeev Webster DO [id number] 12/26/2021 8:00 AM MD BYRON Choi [facility] 02/17/2022 11:00 AM [facility]ION [facility] 6 [facility] ALEX Quality care gaps: Health Maintenance [...] Chronic anticoagulation ??? Coronary artery disease involving p[place]enta coronary artery of p[place]enta heart without angina pectoris ??? Dyspnea on [...] 1 tablet (0.25 mg total) by mouth 2 (two) times daily asneeded for Anxiety. 30 tablet 0 ??? Cholecalciferol (VITAMIN D3) [...] by mouth daily.30 tablet 2 ??? rosuvastatin 5 MG tablet Take 1 tablet (5 mg total) by mouth nightly at bedtime. 30 tablet 2 ??? VENLAFAXINE XR 150 MG 24 hr [...] with Patient Time spent with patient (minutes): 35 Time spent performing chart review (minutes): 10 Total time (minutes): 45 CASEY JOHNSON RN I reviewed the patient's status and education provided by CASEY JOHNSON RN. I agree with the findings and recommendations made. Cosigned by Sanjeev Webster DO at 12/09/2021 12:37 PM CDT documented in this encounter Plan of Treatment Upcoming Encounters Date Type Department Care Team (Late st Contact Info) Description 04/14/2024 2:00 PM BOMB SQUAD OFFICER Office Visit [facility] Medical Group Multispecialty Care - [facility] [address] [facility], [address] [place] [address] Julio Pulido MD [address] [place] [address] documented as of this encounter Goals Goal Patient Goal Type Associated Problems Recent Progress Patient-Stated? Author Health - patient able to perform ADLs independently General On track(2023 9:49 AM CDT) Casey Corona RN Note: 12/17/23: Patient stated she is independent with ASL's. Establish Plan for Symptom Monitoring-CHF General On track(2023 11:36 AM BOMB SQUAD OFFICER) Casey Corona RN Note: Patient will [...] Symptom Monitoring-COPD General On track(2023 11:36 AM BOMB SQUAD OFFICER) Casey Corona RN Note: Patient will [...] Symptom Monitoring-DM General On track(2023 4:33 PM BOMB SQUAD OFFICER) Casey Corona RN Note: Patient will manage [...] Symptom Monitoring-HTN General On track(2023 4:33 PM BOMB SQUAD OFFICER) Casey Corona RN Note: Patient will monitor B/P several times per week , record readings and report to physician or CC if B/P consistently >130/80 Take your medications as prescribed. Follow up with your provider as scheduled. Take your blood pressure at least several times a week if able. documented as of this encounter Visit Diagnoses Diagnosis Type 2 diabetes mellitus with diabetic peripheral angiopathy without gangrene, without long-term current use of insulin ([facility])- Primary Chronic obstructive pulmonary disease, unspecified COPD type ([facility]) Chronic heart failure with preserved ejection fraction (HFpEF) ([facility]) documented in this encounter Additional Health Concerns Assessment Noted Time PHQ-9 Depression Total Score: 2 11/26/19 22 3:14 PM CDT documented as of this encounter Care Teams Employee Development Specialist Relationship Specialty Start Date End Date Sanjeev Webster DO [address] [place] [address] PCP - General FAMILY PRACTICE 09/25/20 Casey Johnson, RN [address] [place], [place] [address] Radio Repair Teacher (Ambulatory) REGISTERED NURSE 08/14/20 documented as of this encounter
--- OUTSIDE RECORDS SUMMARY | 2024-03-15 01:03 | XMS_ITS | Encounter Summary ---
Author Organization [facility] Address [facility] [place] [address] [place] [address] Care Team Providers Care Ripshear Operator Name Role Phone Dianne Johnson RN Unavailable [phone] Sanjeev Webster DO Primary Care Provider + Encounter Details Date Type Department Care Team (Latest Contact Info) Description 12/19/2021 Travel Social History Tobacco Use Types Packs/Day [...] suspected to have Coronavirus/COVID-19? No / Unsure 12/19/2021 1:11 PM CDT documented as of this encounter [...] st Contact Info) Description 04/14/2024 2:00 PM LINUX SUPPORT ENGINEER Office Visit [facility] Medical Group Multispecialty Care - [facility] [address] [facility], [address] [place] [phone] Julio Pulido MD [address] [place] [address] documented as of this encounter Goals Goal Patient Goal Type Associated Problems Recent Progress Patient-Stated? Author Health - patient able to perform ADLs independently General On track(2023 9:49 AM CDT) No Dianne Johnson, RN Note: 12/17/23: Patient stated she is independent with ASL's. Establish Plan for Symptom Monitoring-CHF General On track(2023 11:36 AM LINUX SUPPORT ENGINEER) Dianne Corona, RN Note: Patient will [...] Symptom Monitoring-COPD General On track(2023 11:36 AM LINUX SUPPORT ENGINEER) Dianne Corona RN Note: Patient will [...] Symptom Monitoring-DM General On track(2023 4:33 PM LINUX SUPPORT ENGINEER) Dianne Corona RN Note: Patient will [...] Symptom Monitoring-HTN General On track(2023 4:33 PM LINUX SUPPORT ENGINEER) Dianne Corona RN Note: Patient will [...] documented as of this encounter Care Teams Ripshear Operator Relationship Specialty Start Date End Date Sanjeev Webster DO [address] [place] [address] PCP - General FAMILY PRACTICE 09/25/20 Dianne Johnson, RN [address] [place] [address] Cafeteria Associate (Ambulatory) REGISTERED NURSE 08/14/20 documented as of this encounter
--- OUTSIDE RECORDS SUMMARY | 2024-03-15 01:03 | XMS_ITS | Encounter Summary ---
Author Organization [facility] Address [address] [place] [address]. [place] [address] [place] [address] Care Team Providers Care Health Counselor Name Role Phone Dianne Johnson RN Unavailable [phone] Sanjeev Webster DO Primary Care Provider + Reason for Visit * Reason Onset Date Comments Follow Up Call 11/13/2021 Encounter Details Date Type Department Care Team (Late st Contact Info) Description 11/13/2021 Telephone [facility] Med/Surg [address] [place] [address] Barbara Mazariegos, RN Follow Up Call (/) Social History Tobacco Use Types Packs/Day Years [...] st Contact Info) Description 04/14/2024 2:00 PM PAPER MAKING MACHINE OPERATOR Office Visit [facility] Medical Group Multispecialty Care - [facility] [address] [facility], [address] [place] [phone] Julio Pulido MD [address] [place] [address] documented as of this encounter Goals Goal Patient Goal Type Associated Problems Recent Progress Patient-Stated? Author Health - patient able to perform ADLs independently General On track(2023 9:49 AM CDT) Dianne Corona, RN Note: 12/17/23: Patient stated she is independent with ASL's. Establish Plan for Symptom Monitoring-CHF General On track(2023 11:36 AM PAPER MAKING MACHINE OPERATOR) Dianne Corona RN Note: Patient [...] Symptom Monitoring-COPD General On track(2023 11:36 AM PAPER MAKING MACHINE OPERATOR) Dianne Corona RN Note: Patient [...] Symptom Monitoring-DM General On track(2023 4:33 PM PAPER MAKING MACHINE OPERATOR) Dianne Corona RN Note: Patient [...] Symptom Monitoring-HTN General On track(2023 4:33 PM PAPER MAKING MACHINE OPERATOR) No Dianne Johnson, RN Note: [...] documented as of this encounter Care Teams Health Counselor Relationship Specialty Start Date End Date Sanjeev Webster DO [address] [place] [address] PCP - General FAMILY PRACTICE 09/25/20 Dianne Johnson, RN [address] [place] [address] Urban And Regional Planner (Ambulatory) REGISTERED NURSE 08/14/20 documented as of this encounter
--- OUTSIDE RECORDS SUMMARY | 2024-03-15 01:03 | XMS_ITS | Encounter Summary ---
Author Organization [facility] Address [facility] [address] [place] [address] Care Team Providers Care Director Check Name Role Phone Dianne Johnson RN Unavailable [phone] Sanjeev Webster DO Primary Care Provider + Encounter Details Date Type Department Care Team (Latest Contact Info) Description 11/25/2021 Travel Social History Tobacco Use Types Packs/Day [...] st Contact Info) Description 04/14/2024 2:00 PM FILAMENT WOUND PARTS FABRICATOR Office Visit [facility] Medical Group Multispecialty Care - [facility] [address] [facility], [address] [place] [phone] Julio Pulido MD [address] [place] [address] documented as of this encounter Goals Goal Patient Goal Type Associated Problems Recent Progress Patient-Stated? Author Health - patient able to perform ADLs independently General On track(2023 9:49 AM CDT) No Dianne Johnson, RN Note: 12/17/23: Patient stated she is independent with ASL's. Establish Plan for Symptom Monitoring-CHF General On track(2023 11:36 AM FILAMENT WOUND PARTS FABRICATOR) Dianne Corona, RN Note: Patient will recognize [...] Symptom Monitoring-COPD General On track(2023 11:36 AM FILAMENT WOUND PARTS FABRICATOR) Dianne Corona RN Note: Patient will recognize [...] Symptom Monitoring-DM General On track(2023 4:33 PM FILAMENT WOUND PARTS FABRICATOR) Dianne Corona RN Note: Patient will manage [...] Symptom Monitoring-HTN General On track(2023 4:33 PM FILAMENT WOUND PARTS FABRICATOR) Dianne Corona RN Note: Patient will monitor [...] as of this encounter Care Teams Director Check Relationship Specialty Start Date End Date Sanjeev Webster DO [address] [place] [address] PCP - General FAMILY PRACTICE 09/25/20 Dianne Johnson, RN [address] [place] [address] Wharf Attendant (Ambulatory) REGISTERED NURSE 08/14/20 documented as of this encounter
--- OUTSIDE RECORDS SUMMARY | 2024-03-15 01:03 | XMS_ITS | Encounter Summary ---
Author Organization [facility] Address [address] [place] [address]. [place] [address] [place] [address] Care Team Providers Care Digital Advertising Specialist Name Role Phone Dianne Johnson RN Unavailable Sanjeev Webster DO Primary Care Provider + Encounter Details Date Type Department Care Team (Latest Contact Info) Description 11/05/2021 Scan HEALTH INFO SRVCS Scanned, Documents Social [...] dressing or bathing? No 11/05/2021 7:00 PM DARRYLT Stephanie Rodriguez RN Active Because of a [...] Assessment Author Status No 10/22/2021 10:00 PM DARRYLT Tresa Lemons RN Active * Because of a physical, [...] st Contact Info) Description 04/14/2024 2:00 PM MANAGEMENT ADVISOR Office Visit [facility] Medical Group Multispecialty Care - [facility] [address] [facility], [address] [place] [address] Julio Pulido MD 3 [place] [address] documented as of this encounter Goals Goal Patient Goal Type Associated Problems Recent Progress Patient-Stated? Author Health - patient able to perform ADLs independently General On track(2023 9:49 AM CDT) Dianne Corona RN Note: 12/17/23: Patient stated she is independent with ASL's. Establish Plan for Symptom Monitoring-CHF General On track(2023 11:36 AM MANAGEMENT ADVISOR) Dianne Corona RN Note: Patient will [...] Symptom Monitoring-COPD General On track(2023 11:36 AM MANAGEMENT ADVISOR) Dianne Corona RN Note: Patient will [...] Symptom Monitoring-DM General On track(2023 4:33 PM MANAGEMENT ADVISOR) Dianne Corona RN Note: Patient will [...] Symptom Monitoring-HTN General On track(2023 4:33 PM MANAGEMENT ADVISOR) No Dianne Johnson RN Note: Patient will [...] as of this encounter Care Teams Digital Advertising Specialist Relationship Specialty Start Date End Date Sanjeev Webster DO [address] [place] [address] PCP - General FAMILY PRACTICE 09/25/20 Dianne Johnson, RN [address] [place] [address] Residential Mental Health Worker (Ambulatory) REGISTERED NURSE 08/14/20 documented as of this encounter
--- OUTSIDE RECORDS SUMMARY | 2024-03-15 01:03 | XMS_ITS | Encounter Summary ---
Author Organization [facility] Address [facility] [place] [address] [place] [address] Care Team Providers Care Director Of Cardiology Name Role Phone Dianne Johnson RN Unavailable [phone] Sanjeev Webster DO Primary Care Provider + Reason for Referral * Consultation (Routine) - Closed Specialty Diagnoses / Procedures Referred By Ian t Referred To Contact ENDOCRINOLOGY Diagnoses Hyperthyroidism Secondary hyperparathyroidism ([facility]) Age-related osteoporosis without current pathological fracture Procedures OFFICE/OUTPT VISIT,NEW,LEVL III OFFICE/OUTPT VISIT,NEW,LEVL IV OFFICE/OUTPT VISIT,NEW,LEVL V OFFICE/OUTPT VISIT,EST,LEVL III OFFICE/OUTPT VISIT,EST,LEVL IV OFFICE/OUTPT VISIT,EST,LEVL V Sanjeev Webster DO [address] [place] [address] Phone: tel: fax: Panda Moreno MD Referral ID Status Reason Start Date Expiration Date Visits Re quested Visits Authorized [id number] Closed 01/05/2022 01/06/2023 12 12 Reason for Visit * Reason Comments Enhanced Encounter Encounter Details Date Type Department Care Team (Late st Contact Info) Description 11/25/2021 3:00 PM CDT Office Visit [facility] Family & Internal Medicine [address] [phone] Sanjeev Webster, [address] [place] [id number] Enhanced Encounter Social History Tobacco Use Types Packs/Day Years [...] Sign Reading Time Taken Comments Blood Pressure 102/68 11/25/2021 3:20 PM CDT Pulse 97 11/25/2021 3:20 PM CDT Temperature 36.6 ??C (97.9 ??F) 11/25/2021 3:20 PM CD T Respiratory Rate 16 11/25/2021 3:20 PM CDT Oxygen Saturation 98% 11/25/2021 3:20 PM CDT Inhaled Oxygen Concentration - - Weight 79.2 kg (174 lb 9.6 oz) 11/25/2021 3:20 P M CDT Height 165.1 cm (5' 5 ) 11/25/2021 3:20 PM CDT Body Mass Index 29.05 11/25/2021 3:20 PM CDT documented in this encounter Functional [...] * Patient Instructions* Sanjeev Webster DO - 11/25/2021 3:00 PM CDT We have ordered labs for you to do at [facility]. We have handed these to you. Please obtain the ultrasound of your abdomen at [facility] as scheduled. Here are the specialists you need to schedule with: endocrinology Dr. Moreno at [facility], eyedoctor at [facility], cardiology Dr. Ordoñez You have an appointment with Dr. Padilla in December. Please ensure you attend this office visit. documented in this encounter Progress Notes * Sanjeev Webster DO - 11/25/2021 3:00 PM CDT Annual Preventive Visit Reason for Visit: Radha is an 76-year-old female here for Enhanced Encounter Patient Care Team: Sanjeev Webster DO as PCP - General (FAMILY PRACTICE) Dianne Johnson RN as Apple Packing Header (Ambulatory) (REGISTERED NURSE) History of Present Illness: Pt has hyperthyroidism. We had to increase her dose of methimazole at last OV because her free T4 increased. Pt is not scheduled for follow-up with endocrine at this time due to various issues. Pt was going to have a thyroid uptake scan for this. Pt is needing to schedule her Ultrasound of her gallbladder. Pt's abdominal pain has improved stillat this time. Patient has Type 2 Diabetes. Patient has had diabetes for multiple years. Medications include none specifically for lowering blood sugars. BS logs range: doesn't check. Patient's weight has gone down5 lbs. Last A1c was 6.1 on 08/29/21. Pt has neuropathy and PAD, both of which are stable. Pt is on g abapentin for neuropathy. No claudication at this time. Patient presents for major depressive disorder. Pt has had this for multiple years. Concurrent psychiatric conditions include anxiety. Pt is currently taking venlafaxine and Xanax prn. Pt does not see counseling. Pt's symptoms are well controlled. Patient would like to continue current medications as prescribed. Patient presents for follow-up on essential hypertensio Patient has had hypertension for multiple years. Her levels are controlled today. Current medications include metoprolol, furosemide, and lisinopril. Patient's blood pressure is elevated today. No side effects noted from medications. Pt is noted to have aassociated T2DM and CKD stage 3b. Pt has secondary hyperparathyroidism and osteoporosis, confirmed on DEXA from 07/15/21. Pt was supposed to see Dr. Moreno for follow-up on this, but was not able to do so. Patient presents for follow-up on HLD. Patient has had HLD for multiple years. Pt has associated T2DM. Current medications include atorvastatin. Current side effects include none. Patient does not need labs drawn today. Pt has multiple cardiac issues for which she follows with Dr. Ordoñez and Ana Maria Hess. These include mechanical aortic valve replacement, chronic anticoagulation, paroxysmal atrial flutter & fibrillation, recent NSTEMI, CAD without angina, and HFpEF. Pt has a mechanical St. Lj aortic valve. She is on warfarin; we are managing this. She is no longer on amiodarone due to hyperthyroidism. Pt is on warfarin, rosuvastatin, lisinopril, Lasix, and metoprolol. Pt has vascular dementia and saccular aneurysm. No recent changes regarding her dementia; it is stable. Her aneurysm has also been stable in size since last year. Pt will see Dr. Padilla in December. Pt has emphysema. She denies coughing or SOB. She uses albuterol as needed. Her PFT showed pattern consistent with COPD. Pt has senile purpura. No recent issues with this. She is on warfarin at this time. Pt has polymyalgia rheumatica. Pt is not currently on specific medication for this; she does have chronic pain issues. ROS Review of Systems Constitutional: Negative for fever. Respiratory: See HPI Cardiovascular: Negative for chest pain. Gastrointestinal: See HPI Genitourinary: Negative for dysuria. Musculoskeletal: Stable Skin: See HPI Psychiatric/Behavioral: See [...] daily.) 90 capsule 0 ??? warfarin (COUMADIN) 3 MG tablet Take 1 tablet (3 mg total) by mouth daily. 30 tablet 3 No current facility-administered medications for this visit. Fall Risk Ambulatory Fall Risk Assessment 05/24/2021 11/25/2021 One or More Falls Yes Yes Feels Unsteady Yes No Worried About Falling Yes Yes PHQ2/PHQ9 2 Health Maintenance Topic Date Due ??? Diabetes: Retinopathy Eye Exam Never done ??? Medicare Wellness Visit Never done ??? Zoster Vaccines (2 of 3) 02/19/2016 ??? Hemoglobin A1C 02/28/2022 ??? Lipid Panel 08/29/2022 ??? DTaP, Tdap and Td Vaccines (3 - Td or Tdap) 09/05/2030 ??? DEXA SCAN (GENERAL) Completed ??? Pneumococcal Vaccine: 65+ Years Completed ??? Hepatitis C Completed ??? COVID-19 Vaccine Completed ??? Meningococcal Vaccine Aged Out History Past Medical History: Diagnosis Date ??? Aneurysm [...] Social History Socioeconomic History ??? Marital status: Social History Tobacco Use ??? Smoking status: Never Smoker ??? Smokeless tobacco: Never Used ??? Tobacco comment: non smoker Substance Use Topics ??? Alcohol use: Not Currently Exam Physical Exam [...] Left Foot: Protective Sensation: 5 sites tested. 4 sites sensed. Skin Integrity: Positive for callus. Lymphadenopathy: Cervical: No cervical adenopathy. Skin: General: Skin is warm and dry. Findings: No rash. Neurological: Mental Status: She is alert. Mental status is at baseline. Psychiatric: Mood and Affect: Mood normal. Filed Vitals: 11/25/21 1520 BP: 102/68 Pulse: 97 Resp: 16 Temp: 97.9 ??F (36.6 ??C) TempSrc: Skin SpO2: 98% Weight: 79.2 kg (174 lb 9.6 oz) Height: 5' 5 (1.651 m) Diagnoses/Impression 1. Drug therapy PROTIME/INR, FINGERSTICK 2. Chronic anticoagulation PROTIME/INR, FINGERSTICK warfarin (COUMADIN) 4 MG tablet 3. Hyperthyroidism Ambulatory referral to Endocrinology (OTHER) 4. Secondary hyperparathyroidism ([facility]) Ambulatory referral to Endocrinology (OTHER) PHOSPHORUS, INORGANIC PHOSPHATE CALCIUM URINE 24 HR PTH - INTACT 5. Age-related osteoporosis without current pathological fracture Ambulatory referral to Endocrinology (OTHER) 6. Chronic heart failure with preserved ejection fraction (HFpEF) ([facility]) 7. Paroxysmal atrial flutter ([facility]) 8. Type 2 diabetes mellitus with diabetic peripheral angiopathy without gangrene, without long-termcurrent use of insulin ([facility]) 9. Type 2 diabetes mellitus with diabetic polyneuropathy, without long-term current use of insulin ([facility]) 10. Peripheral artery disease ([facility]) 11. NSTEMI (non-ST elevated myocardial infarction) ([facility]) 12. Coronary artery disease involving hydaburg coronary artery of hydaburg heart without angina pectoris 13. Polymyalgia rheumatica ([facility]) 14. Vascular dementia without behavioral disturbance ([facility]) 15. Pulmonary emphysema, unspecified emphysema type ([facility]) 16. Mild episode of recurrent major depressive disorder ([facility]) 17. Senile purpura ([facility]) 18. Hyperlipidemia associated with type 2 diabetes mellitus ([facility]) 19. Stage 3b chronic kidney disease ([facility]) 20. Benign hypertension with stage 3b chronic kidney disease ([facility]) 21. Hypertension associated with type 2 diabetes mellitus ([facility]) 22. Paroxysmal atrial fibrillation ([facility]) 23. Stage 3b chronic kidney disease (CKD) ([facility]) 1. Drug therapy -Will have pt take 4 mg daily and recheck in 1 week for reassessment 2. Chronic anticoagulation -Will have pt take 4 mg daily and recheck in 1 week for reassessment 3. Hyperthyroidism -Will place new referral for endocrine as pt needs to schedule appointment, continue methimazole and needed testing 4. Secondary hyperparathyroidism ([facility]) -Continue current meds, f/u with endocrine -Will order labs as per above 5. Age-related osteoporosis without current pathological fracture -Continue Prolia, continue f/u with endocrine 6. Chronic heart failure with preserved ejection fraction (HFpEF) ([facility]) -Continue current meds, stable today 7. Paroxysmal atrial flutter ([facility]) -Continue current meds, stable today -F/u with cardiology as recommended 8. Type 2 diabetes mellitus with diabetic peripheral angiopathy without gangrene, without long-termcurrent use of insulin ([facility]) -Well controlled; continue current meds -Continue warfarin at this time 9. Type 2 diabetes mellitus with diabetic polyneuropathy, without long-term current use of insulin ([facility]) -Well controlled, ; continue current meds -Continue gabapentin, sell controlled 10. Peripheral artery disease ([facility]) -Continue warfarin at this time, stable 11. NSTEMI (non-ST elevated myocardial infarction) ([facility]) -F/u with cardiology as recommended, stable today -Continue current meds and risk management 12. Coronary artery disease involving hydaburg coronary artery of hydaburg heart without angina pectoris -Stable today, f/u with cardiology and continue current meds 13. Polymyalgia rheumatica ([facility]) -Stable, pain controlled at this time 14. Vascular dementia without behavioral disturbance ([facility]) -Stable, on warfarin 15. Pulmonary emphysema, unspecified emphysema type ([facility]) -Continue as needed treatment, stable 16. Mild episode of recurrent major depressive disorder ([facility]) -Continue current meds, stable 17. Senile purpura ([facility]) -Stable, benefits outweigh risk for being on warfarin 18. Hyperlipidemia associated with type 2 diabetes mellitus ([facility]) -Continue current meds, stable 19. Stage 3b chronic kidney disease ([facility]) -Stable, continue current meds, continue good BP and diabetes control 20. Benign hypertension with stage 3b chronic kidney disease ([facility]) -Stable, continue current meds 21. Hypertension associated with type 2 diabetes mellitus ([facility]) -Stable, continue meds as prescribed 22. Paroxysmal atrial fibrillation ([facility]) -Stable, continue on current meds -continue f/u with cardiology 23. BMI 29.0-29.9,adult -Recommend weight loss Recommendations and Plan: F/u in 3-4 weeks. Pt v/u. Orders Placed This Encounter ??? PROTIME/INR, FINGERSTICK ??? PHOSPHORUS, INORGANIC PHOSPHATE ??? CALCIUM URINE 24 HR ??? PTH - INTACT ??? Ambulatory referral to Endocrinology (OTHER) ??? warfarin (COUMADIN) 4 MG tablet Reviewed and updated this visit by provider: I spent 78 minutes today reviewing the patient's medical record, obtaining history, performing an exam, ordering medications, tests, and/or procedures, documenting in the medical record, counseling and educating the patient/family/caregiver, reviewing and communicating test results and coordinationof care. Sanjeev Webster DO documented in this encounter Plan of Treatment Upcoming Encounters Date Type Department Care Team (Late st Contact Info) Description 04/14/2024 2:00 PM RESCUE BOAT OPERATOR Office Visit [facility] Multispecialty Care - [facility] [address] [facility], [address] [place] [phone] Julio Pulido MD [address] [place] [address] Scheduled Orders Name Type Priority Associated Diagnoses Orde r Schedule PTH - INTACT Lab Routine Secondary hyperparathyroidism ([facility]) Expected: 11/25/2021, Expires: 11/25/2022 Scheduled Referrals Name Type Priority Associated Diagnoses Orde r Schedule Ambulatory referral to Endocrinology (OTHER) Referral Routine Hyperthyroidism Secondary hyperparathyroidism ([facility]) Age-related osteoporosis without current pathological fracture Ordered: 11/25/2021 documented as of this encounter Goals Goal Patient Goal Type Associated Problems Recent Progress Patient-Stated? Author Health - patient able to perform ADLs independently General On track(2023 9:49 AM CDT) Dianne Corona, RN Note: 12/17/23: Patient stated she is independent with ASL's. Establish Plan for Symptom Monitoring-CHF General On track(2023 11:36 AM RESCUE BOAT OPERATOR) Dianne Cornoa, RN Note: Patient will recognize symptoms of [...] Symptom Monitoring-COPD General On track(2023 11:36 AM RESCUE BOAT OPERATOR) Dianne Corona RN Note: Patient will [...] Symptom Monitoring-DM General On track(2023 4:33 PM RESCUE BOAT OPERATOR) Dianne Corona, RN Note: Patient will [...] Symptom Monitoring-HTN General On track(2023 4:33 PM RESCUE BOAT OPERATOR) Dianne Corona RN Note: Patient will monitor B/P several times per week , record readings and report to physician or CC if B/P consistently >130/80 Take your medications as prescribed. Follow up with your provider as scheduled. Take your blood pressure at least several times a week if able. documented as of this encounter Procedures Procedure Name Priority Date/Time Associated Diagnosis Comments CALCIUM URINE 24 HR Routine 12/15/2021 12:00 AM CDT Secondary hyperparathyroidism ([facility]) PHOSPHORUS, INORGANIC PHOSPHATE Routine 12/13/2021 12:00 AM CDT Secondary hyperparathyroidism ([facility]) PROTHROMBIN TIME, FINGERSTICK Routine 11/25/2021 3:36 PM CDT Drug therapy Chronic anticoagulation documented in this encounter Results * CALCIUM URINE 24 HR (12/15/2021 12:00 AM CDT) URINE SPECIMEN / Unknown 12/15/2021 Sanjeev Webster DO URINE ORDERABLES Final R esult Performing Organization Address [facility] Co de Phone Number [facility] * PHOSPHORUS, INORGANIC PHOSPHATE (12/13/2021 12:00 AM CDT) 12/13/2021 Sanjeev Webster DO LABORATORY Final Re sult Performing Organization Address [facility] de Phone Number [facility] * PROTIME/INR, FINGERSTICK (11/25/2021 3:36 PM CDT) PROTIME WHOLE BLOOD 1.6 [facility] INR WHOLE BLOOD [facility] Comment:not performed on fin gerstick 11/25/2021 3:36 PM CDT Sanjeev Webster DO LABORATORY Final Re sult Performing Organization Address [facility] Co de Phone Number [facility] [address] [place] [address], [place] documented in this encounter Visit Diagnoses Diagnosis Drug therapy- Primary Encounter for long-term (current) use of other medications Chronic anticoagulation Encounter for long-term (current) use of anticoagulants Hyperthyroidism Thyrotoxicosis without mention of goiter or other cause, without mention of thyrotoxic crisis or storm Secondary hyperparathyroidism ([facility]) Secondary hyperparathyroidism (of renal origin) Age-related osteoporosis without current pathological fracture Senile osteoporosis Chronic heart failure with preserved ejection fraction (HFpEF) ([facility]) Paroxysmal atrial flutter ([facility]) Atrial flutter Type 2 diabetes mellitus with diabetic peripheral angiopathy without gangrene, without long-term current use of insulin ([facility]) Type 2 diabetes mellitus with diabetic polyneuropathy, without long-term current use of insulin ([facility]) Peripheral artery disease ([facility] Peripheral vascular disease, unspecified NSTEMI (non-ST elevated myocardial infarction) ([facility]) Acute myocardial infarction, subendocardial infarction, episode of care unspecified Coronary artery disease involving hydaburg coronary artery of hyd[place]urg heart without angina pectoris Polymyalgia rheumatica ([facility]) Polymyalgia rheumatica Vascular dementia without behavioral disturbance ([facility]) Vascular dementia, uncomplicated Pulmonary emphysema, unspecified emphysema type ([facility]) Mild episode of recurrent major depressive disorder ([facility]) Senile purpura ([facility]) Other nonthrombocytopenic purpuras Hyperlipidemia associated with type 2 diabetes mellitus ([facility]) Stage 3b chronic kidney disease ([facility]) Benign hypertension with stage 3b chronic kidney disease ([facility]) Hypertension associated with type 2 diabetes mellitus ([facility]) Paroxysmal atrial fibrillation ([facility]) Atrial fibrillation BMI 29.0-29.9,adult Body Mass Index 29.0-29.9, adult documented in this encounter Additional Health Concerns Assessment Noted Time PHQ-9 Depression Total Score: 2 11/26/19 22 3:14 PM CDT documented as of this encounter Care Teams Director Of Cardiology Relationship Specialty Start Date End Date Sanjeev Webster DO [address] [place] [id number] PCP - General FAMILY PRACTICE 09/25/20 Dianne Johnson, RN [address] [place] [id number] Apple Packing Header (Ambulatory) REGISTERED NURSE 08/14/20 documented as of this encounter
--- OUTSIDE RECORDS SUMMARY | 2024-03-15 01:03 | XMS_ITS | Encounter Summary ---
Author Organization [facility] Address [facility] [place] [address] [place] [address] Care Team Providers Care Business Operations Manager Name Role Phone Dianne Johnson RN Unavailable Sanjeev Webster DO Primary Care Provider + Encounter Details Date Type Department Care Team (Latest Contact Info) Description 11/15/2021 Travel Social History Tobacco Use Types Packs/Day [...] st Contact Info) Description 04/14/2024 2:00 PM KILN FIREMAN Office Visit [facility] Multispecialty Care - [facility] [address] [facility], [address] [place] [phone] Julio Pulido MD [address] [place] [address] documented as of this encounter Goals Goal Patient Goal Type Associated Problems Recent Progress Patient-Stated? Author Health - patient able to perform ADLs independently General On track(2023 9:49 AM CDT) No Dianne Johnson, RN Note: 12/17/23: Patient stated she is independent with ASL's. Establish Plan for Symptom Monitoring-CHF General On track(2023 11:36 AM KILN FIREMAN) Dianne Corona, RN Note: Patient will recognize [...] Symptom Monitoring-COPD General On track(2023 11:36 AM KILN FIREMAN) Dianne Corona RN Note: Patient will recognize [...] Symptom Monitoring-DM General On track(2023 4:33 PM KILN FIREMAN) Dianne Corona RN Note: Patient will manage [...] Symptom Monitoring-HTN General On track(2023 4:33 PM KILN FIREMAN) Dianne Corona RN Note: Patient will monitor [...] as of this encounter Care Teams Business Operations Manager Relationship Specialty Start Date End Date Sanjeev Webster DO [address] [place] [id number] PCP - General FAMILY PRACTICE 09/25/20 Dianne Johnson, RN [address] [place] [address] Cuff Setter Lockstitch (Ambulatory) REGISTERED NURSE 08/14/20 documented as of this encounter
--- OUTSIDE RECORDS SUMMARY | 2024-03-15 01:03 | XMS_ITS | Encounter Summary ---
Author Organization [facility] Address [facility] [place] [address] [place] [address] Care Team Providers Care Barrelhead Inspector Name Role Phone Dianne Johnson RN Unavailable [phone] Sanjeev Webster DO Primary Care Provider + Reason for Visit * Reason Comments Anticoagulation Encounter Details Date Type Department Care Team (Late st Contact Info) Description 12/19/2021 2:00 PM CDT Allied Health/Nurse Visit [facility] Medical Group Family & Internal Medicine [address] [address] Sanjeev Webster DO [address] [place] [address] Anticoagulation Social History Tobacco Use Types [...] Progress Notes * Shanel Staley MA - 12/19/2021 2:00 PM CDT Provider informed of result. Per provider no need for venous draw. documented in this encounter Plan of Treatment Upcoming Encounters Date Type Department Care Team (Late st Contact Info) Description 04/14/2024 2:00 PM KNIT GOODS WASHER Office Visit [facility] Medical Group Multispecialty Care - [facility] [place] [facility] [address] [facility], [address] [place] [phone] Julio Pulido MD [address] [place] [address] documented as of this encounter Goals Goal Patient Goal Type Associated Problems Recent Progress Patient-Stated? Author Health - patient able to perform ADLs independently General On track(2023 9:49 AM CDT) Dianne Corona RN Note: 12/17/23: Patient stated she is independent with ASL's. Establish Plan for Symptom Monitoring-CHF General On track(2023 11:36 AM KNIT GOODS WASHER) Dianne Corona, RN Note: Patient will recognize [...] Symptom Monitoring-COPD General On track(2023 11:36 AM KNIT GOODS WASHER) Dianne Corona RN Note: Patient will [...] Symptom Monitoring-DM General On track(2023 4:33 PM KNIT GOODS WASHER) Dianne Corona RN Note: Patient will [...] Symptom Monitoring-HTN General On track(2023 4:33 PM KNIT GOODS WASHER) Dianne Corona, RN Note: Patient will monitor [...] Associated Diagnosis Comments PROTHROMBIN TIME, FINGERSTICK Routine 12/19/2021 Chronic anticoagulation COLLECT.CAPILLARY (FNGR,HEEL,EAR) Routine 12/19/2021 Chronic anticoagulation documented in this encounter Results * COLLECT.CAPILLARY (FNGR,HEEL,EAR) (12/19/2021) Sanjeev Webster DO PROCEDURES-UNRESULTED Fi nal Result * PROTIME/INR, FINGERSTICK (12/19/2021) INR WHOLE BLOOD 1.40 MG-S [facility] Comment:Per daughter Shakeel oliver is taking 4mg daily. 12/19/2021 us Sanjeev Webster DO LABORATORY Final Re sult -[facility] [address] [place] [address], [place] documented in this encounter Visit Diagnoses Diagnosis Chronic anticoagulation- Primary Encounter for long-term (current) use of anticoagulants documented in this encounter Additional Health Concerns Assessment Noted Time PHQ-9 Depression Total Score: 2 11/26/19 22 3:14 PM CDT documented as of this encounter Care Teams Barrelhead Inspector Relationship Specialty Start Date End Date Sanjeev Webster DO [address] [place] [address] PCP - General FAMILY PRACTICE 09/25/20 Dianne Johnson, RN [address] [place] [address] Database Analyst (Ambulatory) REGISTERED NURSE 08/14/20 documented as of this encounter
--- OUTSIDE RECORDS SUMMARY | 2024-03-15 01:03 | XMS_ITS | Encounter Summary ---
Author Organization [facility] Address [address] [place] [address]. [place] [address] [place] [address] Care Team Providers Care Oss Architect Name Role Phone Dianne Johnson RN Unavailable [phone] Sanjeev Webster DO Primary Care Provider + Reason for Visit * Reason Comments Lab (SCAN) Encounter Details Date Type Department Care Team (Latest Contact Info) Description 12/15/2021 Scan HEALTH INFO SRVCS Scanned, Doc Med [...] Contact Info) Description 04/14/2024 2:00 PM WOOD PROCESSING WORKER Office Visit [facility] Medical Group Multispecialty Care - [facility] [address] [facility], [address] [place] [phone] Julio Pulido MD 3 [place] [address] documented as of this encounter Goals Goal Patient Goal Type Associated Problems Recent Progress Patient-Stated? Author Health - patient able to perform ADLs independently General On track(2023 9:49 AM CDT) No Dianne Johnson, RN Note: 12/17/23: Patient stated she is independent with ASL's. Establish Plan for Symptom Monitoring-CHF General On track(2023 11:36 AM WOOD PROCESSING WORKER) Dianne Corona, RN Note: Patient will [...] Monitoring-COPD General On track(2023 11:36 AM WOOD PROCESSING WORKER) Dianne Corona RN Note: Patient will [...] Monitoring-DM General On track(2023 4:33 PM WOOD PROCESSING WORKER) Dianne Corona RN Note: Patient will [...] Monitoring-HTN General On track(2023 4:33 PM WOOD PROCESSING WORKER) Dianne Corona RN Note: Patient will [...] Associated Diagnosis Comments OUTSIDE LAB (SCAN ORDER) 12/15/2021 documented in this encounter Results * OUTSIDE LAB (SCAN) (12/15/2021) 12/15/2021 us Doc Med Group Scanned SCANNING Final Resu lt documented in this encounter Visit Diagnoses Not on filedocumented in this encounter Additional Health Concerns Assessment Noted Time PHQ-9 Depression Total Score: 2 11/26/19 22 3:14 PM CDT documented as of this encounter Care Teams Oss Architect Relationship Specialty Start Date End Date Sanjeev Webster DO [address] [place] [address] PCP - General FAMILY PRACTICE 09/25/20 Dianne Johnson, RN [address] [place] [address] Community Health Counselor (Ambulatory) REGISTERED NURSE 08/14/20 documented as of this encounter
--- OUTSIDE RECORDS SUMMARY | 2024-03-15 01:03 | XMS_ITS | Encounter Summary ---
Author Organization [facility] Address [address] [place] [address]. [place] [address] [place] [address] Care Team Providers Care After School Program Coordinator Name Role Phone Dianne Johnson RN Unavailable [phone] Sanjeev Webster DO Primary Care Provider + Reason for Visit * Reason Onset Date Comments Referral 12/18/2021 Encounter Details Date Type Department Care Team (Late st Contact Info) Description 12/18/2021 Telephone [facility] Medical Group Diabetes and Endocrinology - [place] [id number] [facility] [place] [address] Panda Moreno MD Referral Social History Tobacco [...] encounter Progress Notes * Taina Garcia - 12/19/2021 9:26 AM CDT Returned Silvana's call (Dr. Webster); LVM advising caledl patient and LVM for patient to call back to schedule PROJECT CONSTRUCTION ASSISTANT MANAGER appt per referral. Questions, can call back. * Fátima Terrazas - 12/18/2021 4:12 PM CDT Silvana with Dr. Webster's office is calling to follow up on a referral that they sent on 11/25/21. CB# [phone] documented in this encounter Plan of Treatment Upcoming Encounters Date Type Department Care Team (Late st Contact Info) Description 04/14/2024 2:00 PM HEALTHCARE ARCHITECT Office Visit [facility] Medical Group [facility] [address] [facility], [address] [place] [phone] Julio Pulido MD [address] [place] [address] documented as of this encounter Goals Goal Patient Goal Type Associated Problems Recent Progress Patient-Stated? Author Health - patient able to perform ADLs independently General On track(2023 9:49 AM CDT) Dianne Corona RN Note: 12/17/23: Patient stated she is independent with ASL's. Establish Plan for Symptom Monitoring-CHF General On track(2023 11:36 AM HEALTHCARE ARCHITECT) Dianne Corona RN Note: Patient will [...] Symptom Monitoring-COPD General On track(2023 11:36 AM HEALTHCARE ARCHITECT) Dianne Corona RN Note: Patient will [...] Symptom Monitoring-DM General On track(2023 4:33 PM HEALTHCARE ARCHITECT) Dianne Corona RN Note: Patient will [...] Symptom Monitoring-HTN General On track(2023 4:33 PM HEALTHCARE ARCHITECT) Dianne Corona RN Note: Patient will [...] of this encounter Care Teams After School Program Coordinator Relationship Specialty Start Date End Date Sanjeev Webster DO [address] [place] [address] PCP - General FAMILY PRACTICE 09/25/20 Dianne Johnson RN [address] [place] [address] Hat Braider (Ambulatory) REGISTERED NURSE 08/14/20 documented as of this encounter
--- OUTSIDE RECORDS SUMMARY | 2024-03-15 01:03 | XMS_ITS | Encounter Summary ---
Author Organization [facility] Address [facility] [place] [address] [place] [address] Care Team Providers Care Shrub Planter Name Role Phone Casey Johnson RN Unavailable [phone] Sanjeev Webster DO Primary Care Provider + Reason for Visit * Reason Onset Date Comments Care Management 11/27/2021 Encounter Details Date Type Department Care Team (Late st Contact Info) Description 11/27/2021 Patient Outreach [facility] Medical Group Family & Internal Medicine [address] [address] Casey Johnson, RN [address] [place] [address] Care Management Social History Tobacco [...] Progress Notes * Casey Johnson RN - 11/27/2021 3:53 PM CDT Chronic Care Management: Patient concerns or urgent matters that need addressed: Patient requesting probation worker services again. Stated she needs someone to sweep, mop floors and take her to the store. Gave patient phone number to [employer] at [phone]. She wrote the number down and will call tomorrow since they are closed right now. Patient Status: Contacted patient and stated she is back home now. Currently doesn't have [facility] services. She was supposed to get [facility] services after D/C from hospital. Informed patient that CC will reach out to [facility] and let them know she is home now. Stated she was at [employer] today and someone had to help her get up. She couldn't remember her weight. Stated it was 17 something. Denies issues with sob, LE edema or CP. Stated she is worn out. LastBM was yesterday and it was a little hard. Patient stated she picked up some prunes and will eatthem. Encouraged to contact CC if she has any further issues with constipation after eating the prunes. Patient stated she is walking without DME. Denies any recent falls. Educated on fall risk prevention. Patient is not checking BG since she is not taking any medications for DM. Stated she received paper work from PCP to get a bunch of lab work. She plans on getting this tomorrow. Stated she is taking 4 mg of Warfarin. Izzy (Zwswlvpg-kq-vwh) stopped by last night and filled her pill shoe planner.Patient reports appetite is ok. Denies abdominal pain and stated she is drinking Ensure. Stated thedoctor told her she can drink it. Encouraged patient to call at the onset of any changes. 11/27/21: Contacted Louis with [facility] services. He will have someone reach out to patient tomorrow to set up [facility]. B/P at 's office on 11/25/21: 102/68 P: 97. Plan of Care: patient service coordinator will continue to follow up by phone, provide resources when needed, educate on disease management and assess chronic conditions. Patient Goals: Goals [...] good at appointment yesterday. CC reviewedreading in [employer] from yesterday. B/P: 132/70 P: 65. 07/29/21: Patient is not taking B/P at this time. Stated her jyjvweyz-xa-izc sets up her pill shoe planner and she is taking medications as directed. Reports alarm will go off at 8:00 am and 8:00 PM reminding her to take her medications. 08/12/21: Patient taking medication as directed. 09/18/21: Taking medication as directed. B/P on 09/12: 120/56. 11/27/21: B/P on 11/25/21 stable at 102/68. ??? Health - patient able to perform [...] dishes her back hurts. Reports Tylenol or [facility] helps a little. Message sent to Bebe BHATTI) to find out the status on supervisor shed workers. 10/23/20: Independent with ADL's. 12/10/20: Patient having issues sweeping etc since right hand fx. Stated she will contact LIFEMODEL[employer] out if another supervisor shed workers will be helping her. Stated she prefers to wait until after she comes back from visiting her son in [place]. 12/27/20: Patient stated she is having issues getting a supervisor shed workers due to company being short staffed. Stated she plans on calling them back today to find out status. Stated her pastors daughter put in application to help her about 1 1/2 months ago but she hasn't received a call. Stated she will call them today. 01/11/21: probation worker will start on Thursday and help patient [...] Patient stated she is getting a new supervisor shed workers next week to help clean her home. Denies any recent falls. 04/10/21: Patient's wciltppd-bw-zxx is filling mediplanner for the patient. 04/29/21: Patient stated the supervisor shed workers did not show up again. Gave patient number to [employer]. She wrote it down and will call for assistance. 05/24/21: Choreworker has not been coming and patient unsure why. Patient has number to call to check on status, but just hasn't done that yet. 07/29/21: Srplzsyu-yl-ytq fills pill shoe planner and has an alarm on it to take morning and evening. Shecooks her own meals and currently doesn't have a supervisor shed workers. Stated she doesn't need one right now. 08/12/21: Patient independent with ADL's. Blarsewl-ii-apa fixes her pill shoe planner and will be doing this today. 11/27/21: Patient independent with ADL's. Stated she can do her laundry etc. Needs someone to sweep and mop her floors. Gave patient phone number to [employer]. She had supervisor shed workers set up through them in the past. Upcoming Visit Appointments: Future Appointments Date Time Provider Department Center [facility] 12/23/2021 10:40 AM Sanjeev Webster, MGFMMRVL [facility] 12/26/2021 8:00 AM MD BYRON Choi [facility] 02/17/2022 11:00 AM ALEX INFUSION RM 6 [facility] ALEX Quality care gaps: Health [...] Vaccine Completed ??? Meningococcal Vaccine Aged Out Problem List: Patient Active Problem List Diagnosis ??? Abnormal stress test ??? Chronic anticoagulation ??? Coronary artery disease involving picayune coronary artery of picayune heart without angina pectoris ??? Dyspnea on [...] (BMI) 31.0-31.9, adult ??? Saccular aneurysm ??? Chronic renal disease, stage III (CMS/HCC) ??? Cobalamin deficiency ??? Compression fracture [...] vertebra, initial encounter ([facility]) ??? Atrial fibrillation with rapid ventricular response (CMS/HCC) ??? Chest pain ??? Contusion of scalp ??? Knee pain ??? Localized, primary osteoarthritis ??? Osteoarthritis of knee ??? Traumatic closed displaced fracture of distal end of radius ??? Shoulder joint pain ??? Hyperlipidemia associated with type 2 diabetes mellitus (CMS/HCC) ??? PVD (peripheral vascular disease) ([facility]/HCC) ??? Hematoma ??? Anxiety ??? Diastolic heart failure (CMS/HCC) ??? Internal hemorrhoids ??? Kidney stone ??? Leukoencephalopathy ??? Major depression single episode, in partial remission ([facility]/HCC) ??? Metacarpal bone fracture ??? Mitral valve disorder ??? Purpura (CMS/HCC) ??? Peripheral arterial occlusive disease ([facility]/HCC) ??? Primary osteoarthritis involving multiple joints ??? Vision loss ??? COPD (chronic obstructive pulmonary disease) ([facility]) ??? Diarrhea ??? Drug-induced constipation ??? H/O mechanical aortic valve replacement ??? On amiodarone therapy ??? Age-related osteoporosis with current pathological fracture ??? Care Management ??? OLIVE (acute kidney injury) ([facility]) ??? Physical deconditioning ??? Chronic heart failure with preserved ejection fraction (HFpEF) ([facility]) Medications: Current Outpatient Medications Medication Sig [...] made. Cosigned by Sanjeev Webster DO at 12/01/2021 11:30 AM CDT documented in this encounter Plan of Treatment Upcoming Encounters Date Type Department Care Team (Late st Contact Info) Description 04/14/2024 2:00 PM TILTING SAW OPERATOR Office Visit [facility] Medical Group Multispecialty Care - [facility] [address] [facility], [address] [place] [address] Julio Pulido MD [address] [place] [address] documented as of this encounter Goals Goal Patient Goal Type Associated Problems Recent Progress Patient-Stated? Author Health - patient able to perform ADLs independently General On track(2023 9:49 AM CDT) Casey Corona RN Note: 12/17/23: Patient stated she is independent with ASL's. Establish Plan for Symptom Monitoring-CHF General On track(2023 11:36 AM TILTING SAW OPERATOR) Casey Corona RN Note: Patient will [...] Symptom Monitoring-COPD General On track(2023 11:36 AM TILTING SAW OPERATOR) Casey Corona RN Note: Patient will [...] Symptom Monitoring-DM General On track(2023 4:33 PM TILTING SAW OPERATOR) Casey Corona RN Note: Patient will [...] Symptom Monitoring-HTN General On track(2023 4:33 PM TILTING SAW OPERATOR) Casey Corona RN Note: Patient will [...] ejection fraction (HFpEF) ([facility])- Primary Type 2 diabetes mellitus with diabetic peripheral angiopathy without gangrene, without long-term current use of insulin ([facility]) Chronic obstructive pulmonary disease, unspecified COPD type ([facility]) documented in this encounter Additional Health Concerns Assessment Noted Time PHQ-9 Depression Total Score: 2 11/26/19 22 3:14 PM CDT documented as of this encounter Care Teams Shrub Planter Relationship Specialty Start Date End Date Sanjeev Webster DO [address] [place] [address] PCP - General FAMILY PRACTICE 09/25/20 Casey Johnson, RN [address] [place] [address] Topographical Drafter (Ambulatory) REGISTERED NURSE 08/14/20 documented as of this encounter
--- OUTSIDE RECORDS SUMMARY | 2024-03-15 01:03 | XMS_ITS | Encounter Summary ---
Author Organization [facility] Address [facility] [place] [address] [place] [address] Care Team Providers Care Control Chemist Name Role Phone Dianne Johnson RN Unavailable [phone] Sanjeev Webster DO Primary Care Provider + Reason for Visit * Reason Onset Date Comments Question 11/25/2021 Encounter Details Date Type Department Care Team (Late st Contact Info) Description 11/25/2021 Telephone [facility] Medical Group Family & Internal Medicine [place] [id number] [place] [address] Sanjeev Webster DO [facility] [place] [address] Question Social History Tobacco Use [...] Progress Notes * Dianne Johnson RN - 11/26/2021 10:12 AM CDT You're welcome! * Sanjeev Webster DO - 11/26/2021 8:53 AM CDT Thank you! * Dianne Johnson RN - 11/25/2021 5:16 PM CDT Please see below. Thank you. * Rafia Smith LPN - 11/25/2021 4:16 PM CDT Pt received prolia infusion at [facility] 08/08/21 and looks like next appt is scheduled 02/17/22 * Dianne Johnson RN - 11/25/2021 4:04 PM CDT 's nursing team, Please see message from and advise. Thank you. Contacted 's office at [phone] and spoke to Iva. She is unable to reach 's nurse at this time to confirm. Informed Iva that will send a message. * Sanjeev Webster DO - 11/25/2021 3:48 PM CDT Can we clarify if pt had Prolia injection through Dr. Moreno's office? It looks like it was completed on 08/08/21, but pt is unsure. documented in this encounter Plan of Treatment Upcoming Encounters Date Type Department Care Team (Late st Contact Info) Description 04/14/2024 2:00 PM RESTRICTIVE PREPARATION OPERATOR Office Visit [facility] Medical Group Multispecialty Care - [facility] [address] [facility], [address] [place] [phone] Julio Pulido MD 3 [place] [address] documented as of this encounter Goals Goal Patient Goal Type Associated Problems Recent Progress Patient-Stated? Author Health - patient able to perform ADLs independently General On track(2023 9:49 AM CDT) Dianne Corona, RN Note: 12/17/23: Patient stated she is independent with ASL's. Establish Plan for Symptom Monitoring-CHF General On track(2023 11:36 AM RESTRICTIVE PREPARATION OPERATOR) Dianne Corona, RN Note: Patient will [...] Symptom Monitoring-COPD General On track(2023 11:36 AM RESTRICTIVE PREPARATION OPERATOR) Dianne Corona RN Note: Patient will [...] Symptom Monitoring-DM General On track(2023 4:33 PM RESTRICTIVE PREPARATION OPERATOR) Dianne Corona, RN Note: Patient will [...] Symptom Monitoring-HTN General On track(2023 4:33 PM RESTRICTIVE PREPARATION OPERATOR) Dianne Corona, RN Note: Patient will [...] Rule Out 01/13/2022 01/13/2022 01/13/2022 12:48 PM RESTRICTIVE PREPARATION OPERATOR COVID-19 Rule Out 01/13/2022 01/13/2022 01/14/2022 12:15 AM RESTRICTIVE PREPARATION OPERATOR COVID-19 Rule Out 03/18/2022 03/18/2022 03/18/2022 12:27 PM RESTRICTIVE PREPARATION OPERATOR COVID-19 Rule Out 03/18/2022 03/18/2022 03/18/2022 12:57 PM RESTRICTIVE PREPARATION OPERATOR COVID-19 Rule Out 03/18/2022 03/18/2022 03/19/2022 1:58 PM RESTRICTIVE PREPARATION OPERATOR Assessment Noted Time PHQ-9 Depression Total Score: 2 11/26/19 3:14 PM CDT documented as of this encounter Care Teams Control Chemist Relationship Specialty Start Date End Date Sanjeev Webster DO [address] [place] [address] PCP - General FAMILY PRACTICE 09/25/20 Dianne Johnson, RN [address] [place] [address] Torch Heater (Ambulatory) REGISTERED NURSE 08/14/20 documented as of this encounter
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
--- OUTSIDE RECORDS SUMMARY | 2024-03-15 01:03 | XMS_ITS | Encounter Summary ---
Author Organization [facility] Address [facility] [place] [address] [place] [address] Care Team Providers Care Circus Supervisor Name Role Phone Dianne Johnson RN Unavailable [phone] Sanjeev Webster DO Primary Care Provider + Reason for Visit * Reason Onset Date Comments Results 11/18/2021 Encounter Details Date Type Department Care Team (Late st Contact Info) Description 11/18/2021 Telephone [facility] Group Family & Internal Medicine [address] [address] [facility] [place] [address] Results Social History Tobacco Use [...] Progress Notes * Yenifer Ingram MA - 11/22/2021 3:01 PM CDT Spoke with provider. Any other labs would need to be ordered at the visit if needed. * Trixie Jose MA - 11/20/2021 9:55 AM CDT STEFANO 11/20/21 tn * Sanjeev Webster DO - 11/20/2021 7:34 AM CDT That's fine. * Yenifer Ingram MA - 11/19/2021 3:25 PM CDT Spoke to patient and informed her of changes. Patient v/u. Patient has EE appt on 11/25/2021. Is it ok to do PT/INR then? Also would you want any other labs at that time? * Sanjeev Webster DO - 11/19/2021 7:31 AM CDT Increase to 4 mg on Thursday and Thursday and 3 mg -, then repeat PT/INR in 1 week. * Scarlett Guerrero MA - 11/18/2021 5:04 PM CDT Patient states that she is taking warfarin 3mg daily .notified and v/u of remaining results * Scarlett Guerrero MA - 11/18/2021 5:03 PM CDT ----- Message from Sanjeev Webster DO sent at 11/17/2021 10:01 AM CDT ----- Increase methimazole to 10 mg daily; thyroid hormone is going in the wrong direction. PT/INR is nowtoo low; clarify current dosage. Other labs are stable; improving. documented in this encounter Plan of Treatment Upcoming Encounters Date Type Department Care Team (Late st Contact Info) Description 04/14/2024 2:00 PM PRIMARY TEACHING ASSISTANT Office Visit [facility] Group Multispecialty Care - [address], [address] [place] [address] Julio Pulido MD [address] [place] [address] documented as of this encounter Goals Goal Patient Goal Type Associated Problems Recent Progress Patient-Stated? Author Health - patient able to perform ADLs independently General On track(2023 9:49 AM CDT) Dianne Corona RN Note: 12/17/23: Patient stated she is independent with ASL's. Establish Plan for Symptom Monitoring-CHF General On track(2023 11:36 AM PRIMARY TEACHING ASSISTANT) Dianne Corona RN Note: Patient will [...] Symptom Monitoring-COPD General On track(2023 11:36 AM PRIMARY TEACHING ASSISTANT) Dianne Corona RN Note: Patient will [...] Symptom Monitoring-DM General On track(2023 4:33 PM PRIMARY TEACHING ASSISTANT) Dianne Corona RN Note: Patient will [...] Symptom Monitoring-HTN General On track(2023 4:33 PM PRIMARY TEACHING ASSISTANT) Dianne Corona RN Note: Patient will [...] documented as of this encounter Care Teams Circus Supervisor Relationship Specialty Start Date End Date Sanjeev Webster DO [address] [place] [address] PCP - General FAMILY PRACTICE 09/25/20 Dianne Johnson, RN [address] [place] [address] Retail Merchandising Coordinator (Ambulatory) REGISTERED NURSE 08/14/20 documented as of this encounter
--- OUTSIDE RECORDS SUMMARY | 2024-03-15 01:03 | XMS_ITS | Encounter Summary ---
Author Organization [facility] Address [facility] [facility] [address] [place] [address] Care Team Providers Care Top Stitcher Name Role Phone Dianne Johnson RN Unavailable [phone] Sanjeev Webtser DO Primary Care Provider + Reason for Visit * Reason Onset Date Comments Follow Up Call 12/18/2021 Encounter Details Date Type Department Care Team (Late st Contact Info) Description 12/18/2021 Telephone [facility] Medical Group Family & Internal Medicine [address] [address] Sanjeev Webster DO [address] [place] [address] Follow Up Call Social History Tobacco [...] Progress Notes * Dianne Johnson RN - 12/19/2021 3:11 PM CDT Patient scheduled for INR today. * Dianne Johnson RN - 12/18/2021 4:39 PM CDT Patient stated she did not have PT/INR done at [facility]. She is wanting to know if she should come in tomorrow and have it done at 's office or wait until 12/23/21. She was due to get it done the week of 12/02/21. Denies any issues with bleeding at this time. Please advise. Thank you. documented in this encounter Plan of Treatment Upcoming Encounters Date Type Department Care Team (Late st Contact Info) Description 04/14/2024 2:00 PM HYDROGEOLOGY PROFESSOR Office Visit [facility] Medical Group Multispecialty Care - [facility] [address] [facility], [address] [place] [address] Julio Pulido MD [address] [place] [address] documented as of this encounter Goals Goal Patient Goal Type Associated Problems Recent Progress Patient-Stated? Author Health - patient able to perform ADLs independently General On track(2023 9:49 AM CDT) Dianne Corona RN Note: 12/17/23: Patient stated she is independent with ASL's. Establish Plan for Symptom Monitoring-CHF General On track(2023 11:36 AM HYDROGEOLOGY PROFESSOR) Dianne Corona RN Note: Patient will recognize [...] Symptom Monitoring-COPD General On track(2023 11:36 AM HYDROGEOLOGY PROFESSOR) Dianne Corona RN Note: Patient will recognize [...] Symptom Monitoring-DM General On track(2023 4:33 PM HYDROGEOLOGY PROFESSOR) Dianne Corona RN Note: Patient will manage [...] Symptom Monitoring-HTN General On track(2023 4:33 PM HYDROGEOLOGY PROFESSOR) Dianne Corona RN Note: Patient will monitor [...] documented as of this encounter Care Teams Top Stitcher Relationship Specialty Start Date End Date Sanjeev Webster DO [address] [place] [address] PCP - General FAMILY PRACTICE 09/25/20 Dianne Johnson RN [address] [place] [address] Musical Instrument Supervisor (Ambulatory) REGISTERED NURSE 08/14/20 documented as of this encounter
--- OUTSIDE RECORDS SUMMARY | 2024-03-15 01:03 | XMS_ITS | Encounter Summary ---
Author Organization [facility] Address [facility] [place] [address] [place] [address] Care Team Providers Care Supply Chain Logistics Manager Name Role Phone Dianne Johnson RN Unavailable [phone] Sanjeev Webster DO Primary Care Provider + Reason for Referral * (Routine) - Canceled Specialty Diagnoses / Procedures Referred By Contac t Referred To Contact Procedures OT Eval and Treat [place] [address] Phone: tel: [phone] fax: Referral ID Status Reason Start Date Expiration Date V isits Requested Visits Authorized [id number] Canceled 11/05/2021 11/05/2022 1 1 * (Routine) - Canceled Specialty Diagnoses / Procedures Referred By Contac t Referred To Contact Procedures PT Eval and Treat [place] [address] Phone: tel: [phone] fax: Referral ID Status Reason Start Date Expiration Date V isits Requested Visits Authorized [id number] Canceled 11/05/2021 11/05/2022 1 1 Reason for Visit * Auth/Cert Specialty Diagnoses / Procedures Referred By Ian t Referred To Contact Diagnoses Weakness [place] [address] Phone: tel:[phone] fax: Referral ID Status Reason Start Date Expiration Date Visits Re quested Visits Authorized [id number] 1 1 Encounter Details Date Type Department Care Team (Late st Contact Info) Description 11/05/2021 7:14 PM CDT - 11/12/2021 1:35 PM CDT Hospital Encounter [facility] Med[facility] [address] [place], [place] [id number] Mateo Gallo MD [place], [place] [address] [phone] (Work) Sanjana Villa MD [address] [place] [address] [phone] Tere Nelson PA-C 1 [facility] [place], [place] [address] [phone] (Work) Discharge Disposition: Home or Self Care (Routine [...] Sign Reading Time Taken Comments Blood Pressure 117/54 11/12/2021 8:35 AM CDT Pulse 80 11/12/2021 8:35 AM CDT Temperature 36.6 ??C (97.8 ??F) 11/12/2021 8:35 AM CD T Respiratory Rate 18 11/12/2021 8:35 AM CDT Oxygen Saturation 96% 11/12/2021 8:35 AM CDT Inhaled Oxygen Concentration - - Weight 85 kg (187 lb 6.3 oz) 11/12/2021 4:00 AM CDT Height 165.1 cm (5' 5 ) 11/05/2021 7:15 PM CDT Body Mass Index 31.18 11/05/2021 7:15 PM CDT documented in this encounter Functional [...] or making decisions? No 11/05/2021 7:00 PM CDT Stephanie Rodriguez RN Active * Because of a physical, mental, or emotional condition, do you have serious difficulty concentrating, remembering, or making decisions? Answer Entry Date Author Status No 11/05/2021 7:00 PM CDT Stephanie Rodriguez R N Active documented in this encounter Discharge Summaries * Tere Nelson PA-C - 11/12/2021 10:02 AM CDT Images from the original note were not included. Hospitalist Discharge Summary Patient ID: Radha Huynh. female. 1945. Admit date: 11/05/2021 7:14 PM Discharge date and time: 11/12/21 Admitting Physician: Mateo Gallo MD Attending Physician: Tere Nelson PA-C Primary Care Physician: Sanjeev Webster DO Discharge Physician: TERE NELSON PA-C Admission Condition: stable Discharged Condition: Stable Code Status: Full Code Indication for Admission: No chief complaint on file. Readmission/Mortality Score at discharge: Low 0-28, Medium 29-58, High >59 LACE+ Score *This score is based on incomplete data Readmission Score: 66* Male Patient: - Urgent Admission: - Discharge Institution: - Length of Stay: 7 Alternative Level of Care Status: 0 ED Visits in Previous 6 Months: 3 Elective Admission in Previous Year: 6 Comorbidity Score (by age & number of urgent admissions): 50 - This score is not calculated because of inadequate data Discharge diagnosis: Principal Problem: Physical deconditioning Resolved Problems: * No resolved hospital problems. * Patient Active Problem List Diagnosis ??? Abnormal stress test ??? Bradycardia ??? Chronic anticoagulation ??? Coronary artery disease involving [place] coronary artery of [place] heart without angina pectoris ??? Diabetes mellitus (CMS/HCC) ??? Dyspnea on exertion ??? H/O mechanical [...] Unknown and unspecified causes of morbidity ??? Type 2 diabetes mellitus with diabetic peripheral angiopathy without gangrene (CMS/HCC) ??? Syncope, unspecified syncope type ??? Senile [...] Chest pain ??? Contusion of scalp ??? DVT prophylaxis ??? Knee pain ??? Localized, primary osteoarthritis [...] ??? H/O mechanical aortic valve replacement ??? Peripheral angiopathy due to diabetes mellitus (CMS/HCC) ??? On amiodarone therapy ??? Age-related osteoporosis with current pathological fracture ??? Care Management ??? OLIVE (acute kidney injury) (CMS/HCC) ??? Physical deconditioning HOSPITAL COURSE: Physical Deconditioning Multiple factors recent PNA, HF exacerbation Acute respiratory failure. Observed walking with therapist 11/10 Improved walking distance: Progressing toward goals ?? CHD S/P NSTEMI Pharmaceutic stress Test 11/04 Negative for ischemia ?? Acute on Chronic HFrEF Continue BB/MING 11/10 Compensated ?? HTN Monitor BP adjust medication as indicated ?? OLIVE superimposed on CKD BUN/creatinine back to baseline ? Status post AVR Mechanical valve Continue warfarin anticoagulation Monitor INR ?? Status post hypotension Possibly medication induced i.e. furosemide 11/06 episode of hypotension BP 89/40 2330 ?? NSVT 9 beat We will continue BB ?? Macrocytic anemia ?? Hyperthyroidism Continue methimazole ?? Right MCA aneurysm Follow-up with vascular surgery ?? Chronic disease history: Dementia, sleep apnea, GERD, dyslipidemia,Osteoporosis, CKD, vitamin D deficiency The patient was educated on Physical deconditioning and other additional medical condition(s). All questions were answered and the patient voices understanding. Radha Huynh is stable and ready for discharge Consults: none Significant Diagnostic Studies: Recent Results (from the past 24 hour(s)) PROTIME/INR, VENOUS Collection Time: 11/12/21 5:22 AM Result Value Ref Range Protime 26.6 (H) 9.1 - 12.4 SEC INR 2.4 Discharge Exam: Filed Vitals: 11/11/21 2156 11/12/21 0400 11/12/21 0802 11/12/21 0835 BP: 109/77 129/63 117/54 Pulse: 80 Resp: 16 18 18 Temp: 98.8 ??F (37.1 ??C) 97.8 ??F (36.6 ??C) TempSrc: Tympanic Tympanic SpO2: 95% 93% 96% Weight: 85 kg (187 lb 6.3 oz) Height: Physical Exam Constitutional: General: She is not in acute distress. Appearance: She is not diaphoretic. HENT: Head: Normocephalic and atraumatic. Eyes: Conjunctiva/sclera: Conjunctivae normal. Pupils: Pupils are equal, round, and reactive to light. Neck: Vascular: No JVD. Cardiovascular: Rate and Rhythm: Normal rate and regular rhythm. Heart sounds: No murmur heard. Pulmonary: Effort: Pulmonary effort is normal. No respiratory distress. Breath sounds: No wheezing. Abdominal: General: There is no distension. Tenderness: There is no abdominal tenderness. There is no rebound. Skin: General: Skin is warm and dry. Findings: No erythema. Neurological: Mental Status: She is alert and oriented to person, place, and time. She is not lethargic. Cranial Nerves: No cranial nerve deficit. Psychiatric: Mood and Affect: Affect normal. Discharge Medications: Medication List CHANGE how you take these medications Morning Afternoon Evening Bedtime As Needed warfarin 3 MG tablet Commonly known as: COUMADIN Take 1 tablet (3 mg total) by mouth daily. Last time this was given: 3 mg on November 11, 2021 6:02 PM What changed: ?? medication strength ?? how much to take CONTINUE taking these medications Morning Afternoon Evening Bedtime As Needed acetaminophen 500 MG tablet Commonly known as: TYLENOL Take 500 mg by mouth daily as needed. albuterol sulfate HFA 108 (90 Base) MCG/ACT inhaler Inhale 2 puffs into the lungs every 6 (six) hours as needed for Wheezing. ALPRAZolam 0.25 MG tablet Commonly known as: XANAX Take 1 tablet (0.25 mg total) by mouth 2 (two) times daily as needed for Anxiety. FeroSul 325 (65 FE) MG tablet Take 1 tablet by mouth once daily Last time this was given: 325 mg on November 12, 2021 8:38 AM Generic drug: ferrous sulfate (65 mg elemental) fluticasone propionate 50 MCG/ACT nasal spray Commonly known as: FLONASE 2 sprays by Nasal route daily. Last time this was given: 2 sprays on November 12, 2021 8:39 AM furosemide 20 MG tablet Commonly known as: LASIX Start taking on: November 13, 2021 Take 3 tablets (60 mg total) by mouth daily. Last time this was given: 60 mg on November 12, 2021 8:39 AM gabapentin 300 MG capsule Commonly known as: NEURONTIN Take 1 capsule (300 mg total) by mouth 2 (two) times daily. Last time this was given: 300 mg on November 12, 2021 8:38 AM HYDROcodone-acetaminophen 10-325 MG tablet Commonly known as: NORCO Take 1 tablet by mouth every 6 (six) hours as needed for Pain. Indications: Chronic Pain Do not take with alprazolam. No further refills until seen in office. Last time this was given: 1 tablet on November 12, 2021 8:44 AM lidocaine 5 % Commonly known as: LIDODERM Apply pain patch to affected area. Change after 12 hours. Last time this was given: Ask your nurse or doctor lisinopril 2.5 MG tablet Commonly known as: PRINIVIL Take 1 tablet (2.5 mg total) by mouth daily. Last time this was given: 2.5 mg on November 12, 2021 8:38 AM methIMAzole 5 MG tablet Commonly known as: TAPAZOLE Take 1 tablet (5 mg total) by mouth daily. Last time this was given: 5 mg on November 12, 2021 8:38 AM metoprolol tartrate 25 MG tablet Commonly known as: LOPRESSOR Take 0.5 tablets (12.5 mg total) by mouth 2 (two) times daily. Last time this was given: 12.5 mg on November 12, 2021 8:39 AM omeprazole 20 MG capsule Commonly known as: PriLOSEC Take 1 capsule by mouth once daily rosuvastatin 5 MG tablet Commonly known as: CRESTOR Take 1 tablet (5 mg total) by mouth nightly at bedtime. venlafaxine XR 150 MG 24 hr capsule Commonly known as: EFFEXOR-XR Take 1 capsule by mouth once daily Last time this was given: 150 mg on November 12, 2021 8:38 AM Vitamin D3 25 MCG (1000 UT) Caps Take 1,000 Units by mouth daily. Last time this was given: Ask your nurse or doctor Disposition: Home with self care Time Spent on Discharge: Less than 30 minutes This note was dictated with [employer] medical dictation software; misspellings, punctuation errors, omitted words or dictation variances may occur. TERE NELSON PA-C 11/12/2021 10:03 AM Primary care physician: Sanjeev Webster, Extended Emergency Contact Information Primary Emergency Contact: Shannon Vigil Relation: Sister Preferred language: German Personnel Consultant needed? No Secondary Emergency Contact: Dayami Ma [address] [facility] Relation: Friend Personnel Consultant needed? No Cosigned by Sanjana Villa MD at 11/12/2021 10:13 PM CDT Associated attestation - Sanjana Villa MD - 11/12/2021 10:13 PM CDT I saw the patient on the day of discharge and agree with the discharge plans and disposition. No complaints Lungs:clear Heart: RRR NL S1S2 documented in this encounter Medications at Time [...] hronic obstructive pulmonary disease, unspecified COPD type ([facility]/HCC [facility]) Inhale 2 puffs into the lungs every 6 (six) hours as needed for Wheezing. 18 g 1 10/10/2021 3 ALPRAZolam (XANAX) 0.25 MG tabletIndications:An xiety Take 1 tablet (0.25 mg total) by mouth 2 (two) times daily as needed for Anxiety. 30 tablet 10/10/2021 2 FEROSUL 325 (65 Fe) MG tabletIndications:Ir on deficiency anemia, unspecified iron deficiency anemia type Take 1 tablet by mouth once daily 90 tablet 10/07/2021 2 fluticasone propionate 50 MCG/ACT nasal spray 2 sprays by Nasal route daily. 3 furosemide (LASIX) 20 MG tablet Take 3 tablets (60 mg total) by mouth daily. 30 tablet 3 11/13/2021 2 gabapentin 300 MG capsuleIndications:B ack pain Take 1 capsule (300 mg total) by mouth 2 (two) times daily. 180 capsule 07/16/2020 2 HYDROcodone-acetamin ophen (NORCO) 10-325 MG tabletIndications:Ch ronic Pain Take 1 tablet by mouth every 6 (six) hours as needed for Pain. Indications: Chronic Pain Do not take with alprazolam. No further refills until seen in office. 30 tablet 09/26/2021 2 lidocaine 5 %Indications:Neck pain Apply pain patch to affected area. Change after 12 hours. 6 patch 08/30/2020 3 lisinopril (PRINIVIL) 2.5 MG tablet Take 1 tablet (2.5 mg total) by mouth daily. 30 tablet 3 11/06/2021 2 methIMAzole 5 MG tabletIndications:Hy perthyroidism Take 1 tablet (5 mg total) by mouth daily. 30 tablet 11 08/30/2021 2 metoprolol tartrate (LOPRESSOR) 25 MG tablet Take 0.5 tablets (12.5 mg total) by mouth 2 (two) times daily. 60 tablet 3 11/05/2021 3 omeprazole (PRILOSEC) 20 MG capsuleIndications:G ERD (gastroesophageal reflux disease) Take 1 capsule by mouth once daily 90 capsule 10/07/2021 2 rosuvastatin 5 MG tabletIndications:Hy perlipidemia, unspecified hyperlipidemia type Take 1 tablet (5 mg total) by mouth nightly at bedtime. 30 tablet 2 08/14/2021 2 VENLAFAXINE XR 150 MG 24 hr capsuleIndications:D iabetic polyneuropathy associated with type 2 diabetes mellitus (CMS/HCC HHS/HCC),Mild episode of recurrent major depressive disorder (CMS/HCC) Take 1 capsule by mouth once daily 90 capsule 06/17/2021 2 warfarin (COUMADIN) 3 MG tablet Take 1 tablet (3 mg total) by mouth daily. 30 tablet 3 11/12/2021 2 documented as of this encounter Progress Notes * Sidra Qureshi, MANAGER [employer]E [employer]AX - 11/12/2021 1:35 PM CDT 11/12/21 1034 Therapy Visit Subjective Pt in bed upon arrival and is agreeable to PT. Reason for admission Admitted to swing bed at [facility] 11/05/21 from acute care at [facility] for OLIVE. Had been hospitalized prior to 10/22/21 for pneumonia also at [facility]. Relevant Comorbidities/ Personal Factors to PT 10/15/21 PNA and d/c'd home 10/21/21 and returned 10/22/21 due to weakness. Trans to [facility] 11/05/21. PMH includes afib, aflutter, CAD, HTN, DM, HLD, GERD, HYPOTHYROIDISM Verified Two Patient Identifiers Yes Patient consents to therapy Yes Acute Inpatient PT Time Calculation PT Start Time 1034 PT Stop Time 1052 PT Time Calculation (min) 18 min Precautions General Precautions Fall Risk (Pt signed alarm waiver) PPE Used Face mask Instructed on Precautions Yes;Verbalizes understanding;Demonstrates understanding Pain Pain Patient does not offer or c/o pain Activity Tolerance Endurance Quality Good Pre-activity VS O2 sat on RA 94% VS Response During Activity O2 sat on RA after both amb trials 92% Activity Tolerance Comments Pt somewhat SOB after amb, especially second trial. Pt requested amb inher room so she would not need to wear a facemask. Cognition Overall Cognitive Status WFL Bed Mobility Supine to Sit Independent Sit to Supine Independent TRANSFERS Stand Pivot Transfers Independent Other (Comment) Stand to sit Indep. Gait Gait Assistance SBA/supervision Assistive Device None Distance Ambulated (ft) (100' x 2) Pattern Shuffle steps Weight Bearing Status Total Balance Sitting - Static Independent Sitting - Dynamic Independent Standing - Static Independent Standing - Dynamic SBA Exercises Sitting LE Exercise Pt provided with written I/S for LAQ, hip flex, hip abd, ankle DF/PF. Pt was able to correctly demonstrate all ex once additional cues were added to the handout.x Patient/Family Training Bed Mobility x Transfer Training x Gait Training x Precautions x Exercise Program x PT Assessment PT Assessment Pt was able to meet the remainder of her IP PT goals this session. Pt is ready to discharge to home with home health following her Family care plan meeting this afternoon. Plan Progress Discontinue PT If this is the last treatment note,it will serve as the discharge summary Yes End of Session End of Session Safety Call light within reach (Pt signed alarm waiver.) End of Session Comment Pt in bed at end of session. Cosigned by Nella Rosario, PT at 11/12/2021 5:17 PM CDT * Adriana Gonzales, OT - 11/12/2021 1:16 PM CDT 11/12/21 1300 Therapy Visit Reason for admission Admitted to swing bed at [facility] 11/05/21 from acute care at [facility] for OLIVE. Had been hospitalized prior to 10/22/21 for pneumonia also at [facility]. Verified Two Patient Identifiers Yes Patient consents to therapy Yes Acute Inpatient OT Time Calculation OT Start Time 1258 OT Stop Time 1308 OT Time Calculation (min) 10 min Precautions PPE Used Face mask Instructed on Precautions Yes;Verbalizes understanding;Demonstrates understanding Skin Integrity appears intact Subjective Subjective Attended care plan meeting w/ patient, sister, friend and senior case manager. Reviewed patient's progress w/ PT and OT and goal attainment. Educated on energy conservation tech's to promote increased endurance. Recommend HH services to further assess safety and indep in home environment. Patient is uncertain about agreeing to be home bound for home health services. Plans to let home health agency know her decision once she's home. Patient has a ww at home if needed. OT Assessment OT Assessment Patient is meeting her goals and is safe to return home w/ assist from family Recommendation OT Recommendation Home with assistance;Home OT OT Equipment Recommended Currently has DME in Place Plan If this is the last treatment note, it will serve as the discharge summary Yes End of Session End of Session Safety Call light within reach;Family/friend present with patient Leydi Index: Leydi Index Feeding: Independent Bathing: Independent (or in shower) Grooming: Independent face/hair/teeth/shaving (implements provided) Dressing: Independent (including buttons, zips, laces, etc) Bowels: Continent Bladder: Continent Toilet Use: Independent (on and off, dressing, wiping) Transfers (Bed To Chair And Back): Independent Mobility (On Level Surfaces): Independent (but may use any aid, for example, stick) > 50 yards Stairs: Needs help (verbal, physical, carrying aid) Total (0-100): 95 * Linda Bryant RN - 11/12/2021 10:17 AM CDT RNCM spoke with [facility] who states they can accept pt and will contact pt at ak for start of services. RNCM spoke with pt at bedside who denies concerns with dc this date but does wish for family meeting before dc. RNCM completed family meeting completed with both sisters and pt at bedside. Pt denies concerns with dc this date and states sister who is at bedside will transport her home this date. Pt denies any other needs at this time. No further RNCM needs at this time. 11/12/21 1013 Discharge Planning Living Arrangements Alone Support Systems Family Members Type of Residence Private residence Assistance/Services Needed Yes IV Infusion at discharge No Patient expects to be discharged to: Home DME Needed at Discharge No Discharge Planning Who is requesting discharge planning? Provider * Linda Bryant RN - 11/12/2021 10:13 AM CDT Signed by floor RN 11/10/21. 11/12/21 1013 Forms [facility] Signed Copy delivered * Brandy Simmons [facility] - 11/12/2021 8:42 AM CDT Warfarin Pharmacy to Dose Monitoring Progress Note Radha Huynh is a 76-year-old female for which pharmacy has been consulted to dose warfarin for mechanical aortic valve and Afib. Goal INR is 2.5-3.5. 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 No date: Anxiety No date: Atrial flutter ([facility]/HCC) No date: Cataract No date: Chronic anticoagulation Comment: due to mechanical heart valve No date: Chronic pain No date: Diabetes mellitus ([facility]/HCC) 2004: H/O mechanical aortic valve replacement No date: Hypertension Home warfarin dose: 5 mg daily Bridging agent: none Vitamin K usage: No; (if yes, indicate date, dose, and route) Diet: PO, eating 25-100% of meals Recent Labs Lab 11/10/21 0756 11/11/21 0613 11/12/21 0522 INR 2.8 2.3 2.4 Date INR Dose Received 11/04 2.4 4 mg 11/05 2.8 3 mg 11/06 3.0 3 mg?? 11/07 3.1 3 mg?? 11/08 3.2 3 mg 11/09 3.7 1 mg 11/10 2.8 2.5 mg 11/11 2.3 3 mg?? 11/12 2.4 ?? Interacting Medications: Potential to increase INR: none Potential to decrease INR: methimazole Potential to increase the risk of bleeding: none Assessment/Plan: INR today is Subtherapeutic The plan is to give 3 mg this evening. Pharmacy will continue to monitor labs daily, adjusting the dose as clinically appropriate. Thank you for this consult, BRANDY SIMMONS [facility] 11/12/2021 8:42 AM * Herlinda Dupree RN - 11/12/2021 3:23 AM CDT Problem: Discharge Planning Goal: Knowledge of discharge instructions Outcome: Progressing Problem: Skin Integrity - Impaired Goal: Absence of new skin breakdown Outcome: Progressing Problem: Venous Thromboembolism - Risk of Goal: Absence of venous thromboembolism Outcome: Progressing Problem: Reduced risk for falls/injury Goal: Reduced Risk for Falls/Injury Outcome: Progressing Goal: Reduced Risk of Confusion (Acute vs Chronic) Outcome: Progressing Goal: Reduced Risk of Symptomatic Depression Outcome: Progressing Goal: Reduced Risk of Altered Elimination Outcome: Progressing Goal: Reduced Risk of Dizziness/Vertigo/Balance Outcome: Progressing Goal: Reduced Risk of Polypharmacy Outcome: Progressing Problem: Pain Goal: Patient's pain/discomfort is manageable Description: Assess and monitor patient's pain using appropriate pain scale. Collaborate with interdisciplinary team and initiate plan and interventions as ordered. Re-assess patient's pain level 30 - 60 minutes after pain management intervention. Outcome: Progressing Problem: Safety Goal: Patient will be injury free during hospitalization Description: Assess and monitor vitals signs, neurological status including level of consciousness and orientation. Assess patient's risk for falls and implement fall prevention plan of care and interventions per hospital policy. Ensure arm band on, uncluttered walking paths in room, adequate room lighting, call light and overbed table within reach, bed in low position, wheels locked, side rails up per policy, and non-skid footwear provided. Outcome: Progressing Problem: Daily Care Goal: Daily care needs are met Description: Assess and monitor ability to perform self care and identify potential discharge needs. Outcome: Progressing Problem: Psychosocial Needs Goal: Demonstrates ability to cope with hospitalization/illness Description: Assess and monitor patients ability to cope with his/her illness. Outcome: Progressing Goal: Collaborate with patient/family/caregiver to identify patient specific goals for this hospitalization Outcome: Progressing Problem: Discharge Barriers Goal: Patient's discharge needs are met Description: Collaborate with interdisciplinary team and initiate plans and interventions as needed. Outcome: Progressing * Leighann Johnson PharmD - 11/11/2021 1:29 PM CDT Warfarin Pharmacist to Dose Monitoring Progress Note Radha Huynh is a 76-year-old female for whom pharmacist has been consulted to dose warfarinfor A.fib and mechanical aortic valve. Goal INR is 2.5-3.5. 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 No date: Anxiety No date: Atrial flutter ([facility]/HCC) No date: Cataract No date: Chronic anticoagulation Comment: due to mechanical heart valve No date: Chronic pain No date: Diabetes mellitus (CMS/HCC) 2004: H/O mechanical aortic valve replacement No date: Hypertension Home warfarin dose: 5 mg daily Bridging agent: none Vitamin K usage: No Diet: PO, eating 90-100 % of meals Recent Labs Lab 11/05/21 0702 11/06/21 0537 11/09/21 0623 11/10/21 0756 11/11/21 0613 INR 2.8 < > 3.7 2.8 2.3 HGB 8.2* -- -- -- -- HCT 26.8* -- -- -- -- PLT 201 -- -- -- -- < > = values in this interval not displayed. Date INR Dose Received 11/04 2.4 4 mg 11/05 2.8 3 mg 11/06 3.0 3 mg?? 9 3.1 3 mg?? 11/08 3.2 3 mg 11/09 3.7 1 mg 11/10 2.8 2.5 mg 11/11 2.3 Interacting Medications: Potential to increase INR: none Potential to decrease INR: methimazole Potential to increase the risk of bleeding: none Assessment/Plan: INR today is Subtherapeutic The plan is to give 3 mg warfarin this evening. INR has been labile throughout the past month. No interaction or diet change that I can see as a cause. Pharmacist will continue to monitor labs daily,adjusting the dose as clinically appropriate. Thank you for this consult, LEIGHANN JOHNSON PharmD, BCPS 11/11/2021 1:29 PM * Herlinda Dupree RN - 11/11/2021 1:30 AM CDT Problem: Reduced risk for falls/injury Goal: Reduced Risk of Altered Elimination Outcome: Not Progressing Pt has not had a bowel movement since 11/06/2021 Problem: Discharge Planning Goal: Knowledge of discharge instructions Outcome: Progressing Problem: Skin Integrity - Impaired Goal: Absence of new skin breakdown Outcome: Progressing Problem: Venous Thromboembolism - Risk of Goal: Absence of venous thromboembolism Outcome: Progressing Problem: Reduced risk for falls/injury Goal: Reduced Risk for Falls/Injury Outcome: Progressing Goal: Reduced Risk of Confusion (Acute vs Chronic) Outcome: Progressing Goal: Reduced Risk of Symptomatic Depression Outcome: Progressing Goal: Reduced Risk of Dizziness/Vertigo/Balance Outcome: Progressing Goal: Reduced Risk of Polypharmacy Outcome: Progressing Problem: Pain Goal: Patient's pain/discomfort is manageable Description: Assess and monitor patient's pain using appropriate pain scale. Collaborate with interdisciplinary team and initiate plan and interventions as ordered. Re-assess patient's pain level 30 - 60 minutes after pain management intervention. Outcome: Progressing Problem: Safety Goal: Patient will be injury free during hospitalization Description: Assess and monitor vitals signs, neurological status including level of consciousness and orientation. Assess patient's risk for falls and implement fall prevention plan of care and interventions per hospital policy. Ensure arm band on, uncluttered walking paths in room, adequate room lighting, call light and overbed table within reach, bed in low position, wheels locked, side rails up per policy, and non-skid footwear provided. Outcome: Progressing Problem: Daily Care Goal: Daily care needs are met Description: Assess and monitor ability to perform self care and identify potential discharge needs. Outcome: Progressing Problem: Psychosocial Needs Goal: Demonstrates ability to cope with hospitalization/illness Description: Assess and monitor patients ability to cope with his/her illness. Outcome: Progressing Goal: Collaborate with patient/family/caregiver to identify patient specific goals for this hospitalization Outcome: Progressing Problem: Discharge Barriers Goal: Patient's discharge needs are met Description: Collaborate with interdisciplinary team and initiate plans and interventions as needed. Outcome: Progressing * Sanjana Villa MD - 11/10/2021 11:01 PM CDT Hospital Daily Progress Note History The patient was recumbent in bed without complaints. . Past Medical History: Diagnosis Date ??? 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 Anxiety ??? Atrial flutter (CMS/HCC) ??? Cataract ??? Chronic anticoagulation due to mechanical heart valve ??? Chronic pain ??? Diabetes mellitus (CMS/HCC) ??? H/O mechanical aortic valve replacement 2003 ??? Hypertension Current Facility-Administered Medications Medication ??? acetaminophen (TYLENOL) tablet 500 mg ??? albuterol sulfate HFA 108 (90 Base) MCG/ACT inhaler 2 puff ??? ALPRAZolam (XANAX) tablet 0.25 mg ??? ferrous sulfate (65 mg elemental) tablet 325 mg ??? fluticasone propionate (FLONASE) 50 MCG/ACT nasal spray 2 spray ??? furosemide (LASIX) tablet 60 mg ??? gabapentin (NEURONTIN) capsule 300 mg ??? HYDROcodone-acetaminophen (NORCO) 10-325 MG tablet 1 tablet ??? lidocaine 4 % patch 1 patch ??? lisinopril (PRINIVIL) tablet 2.5 mg ??? methIMAzole (TAPAZOLE) tablet 5 mg ??? metoprolol tartrate (LOPRESSOR) tablet 12.5 mg ??? pantoprazole EC (PROTONIX) tablet 20 mg ??? venlafaxine XR (EFFEXOR-XR) 24 hr capsule 150 mg ??? vitamin D3 (cholecalciferol) tablet 1,000 Units ??? warfarin (COUMADIN) pharmacy to dose placeholder ??? warfarin (COUMADIN) tablet 3 mg Facility-Administered Medications Ordered in Other Encounters Medication ??? denosumab (PROLIA) injection 60 mg Physical Exam Filed Vitals: 11/09/21 0300 11/09/21 0747 11/10/21 0409 11/10/21 0743 BP: 128/57 105/49 Pulse: 86 94 Resp: 18 16 Temp: 97.1 ??F (36.2 ??C) 95.9 ??F (35.5 ??C) TempSrc: Tympanic Temporal SpO2: 91% 94% Weight: 83.5 kg (184 lb 1.4 oz) 83.5 kg (184 lb 1.4 oz) Height: Intake/Output Summary (Last 24 hours) at 11/10/2021 2301 Last data filed at 11/10/2021 1845 Gross per 24 hour Intake 430 ml Output -- Net 430 ml Physical Exam Constitutional: Appearance: Normal appearance. HENT: Head: Normocephalic and atraumatic. Cardiovascular: Rate and Rhythm: Normal rate and regular rhythm. Pulmonary: Effort: Pulmonary effort is normal. Breath sounds: Normal breath sounds. Abdominal: General: Abdomen is flat. Palpations: Abdomen is soft. Neurological: General: No focal deficit present. Mental Status: She is alert. Lab Results Component Value Date NA 139 11/05/2021 K 4.1 11/05/2021 CL 106 11/05/2021 CO2 30.7 11/05/2021 AGAP 2.3 (L) 11/05/2021 BUN 24 (H) 11/05/2021 CR 1.22 (H) 11/05/2021 BUNCREATININ 19.7 11/05/2021 GFRNON 34 (L) 05/24/2021 GFR 39 (L) 05/24/2021 GLU 76 11/05/2021 CA 9.8 11/05/2021 Lab Results Component Value Date WBC 4.4 (L) 11/05/2021 HGB 8.2 (L) 11/05/2021 PLT 201 11/05/2021 Lab Results Component Value Date CHOL 200 (H) 08/29/2021 TRI 108 08/29/2021 HDL 71 08/29/2021 TP 5.6 (L) 11/05/2021 ALB 2.5 (L) 11/05/2021 ALT 21 11/05/2021 HGBA1C 6.1 08/29/2021 TSH <0.005 (L) 10/30/2021 Cultures: Blood: No results found for this visit on 11/05/21 (from the past 168 hour(s)). Urine: No results found for this visit on 11/05/21 (from the past 168 hour(s)). Respiratory: No results found. Assessment Physical Deconditioning Multiple factors recent PNA, HF exacerbation Acute respiratory failure. Observed walking with therapist 11/10 Improved walking distance: Progressing toward goals CHD S/P NSTEMI Pharmaceutic stress Test 11/04 Negative for ischemia Acute on Chronic HFrEF Continue BB/MING 11/10 Compensated HTN Monitor BP adjust medication as indicated OLIVE superimposed on CKD BUN/creatinine back to baseline Status post AVR Mechanical valve Continue warfarin anticoagulation Monitor INR Status post hypotension Possibly medication induced i.e. furosemide 11/06 episode of hypotension BP 89/40 2330 NSVT 9 beat We will continue BB Macrocytic anemia Hyperthyroidism Continue methimazole Right MCA aneurysm Follow-up with vascular surgery Chronic disease history: Dementia, sleep apnea, GERD, dyslipidemia,Osteoporosis, CKD, vitamin D deficiency CODE STATUS: Full code Surrogate: Sister Shannon Vigil VTE prophylaxis moderate risk: Continue SANJANA VILLA MD * Rudy Spivey, [facility] - 11/10/2021 1:36 PM CDT Warfarin Pharmacy to Dose Monitoring Progress Note Radha Huynh is a 76-year-old female for which pharmacy has been consulted to dose warfarin for mechanical aortic valve and Afib . Goal INR is 2.5-3.5. 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 No date: Anxiety No date: Atrial flutter ([facility]) No date: Cataract No date: Chronic anticoagulation Comment: due to mechanical heart valve No date: Chronic pain No date: Diabetes mellitus ([facility]) 2004: H/O mechanical aortic valve replacement No date: Hypertension Home warfarin dose: 5mg daily Bridging agent: none Vitamin K usage: No; (if yes, indicate date, dose, and route) Diet: PO, eating 90-100 % of meals Recent Labs Lab 11/04/21 0811 11/05/21 0702 11/06/21 0537 11/08/21 0512 11/09/21 0623 11/10/21 0756 INR 2.4 2.8 < > 3.2 3.7 2.8 HGB 7.9* 8.2* -- -- -- -- HCT 26.3* 26.8* -- -- -- -- PLT 189 201 -- -- -- -- < > = values in this interval not displayed. Date INR Dose Received 11/04 2.4 5 mg 11/05 2.8 4 mg 11/06 3.0 3 mg 11/07 3.1 3 mg 11/08 3.2 3mg 11/09 3.7 3mg 11/10 2.8 1mg Interacting Medications: Potential to increase INR: none Potential to decrease INR: methimazole Potential to increase the risk of bleeding: none Assessment/Plan: INR today is Therapeutic The plan is to give 2.5 mg this evening. Pharmacy will continue to monitor labs daily, adjusting the dose as clinically appropriate. Thank you for this consult, RUDY SPIVEY [facility] 11/10/2021 1:30 PM * Sidra Qureshi PTA - 11/10/2021 10:30 AM CDT Pt has met or nearly met her PT goals and is on track for discharge on 11/12/21 after her Family caremeeting. Problem: Mobility Goal: STG - Pt will ambulate Description: 100' x2 with least AD with supervision for short community distances. Outcome: Progressing Problem: Transfers Goal: STG - Pt will perform bed mobility Description: Indep/supervision Outcome: Adequate for Discharge Goal: STG - Pt will perform sit to stand Description: Indep/supervision with least AD Outcome: Adequate for Discharge Goal: STG - Pt will perform stand pivot transfer Description: Indep/supervision with least AD Outcome: Progressing Problem: Activity Tolerance Goal: STG - Pt will maintain SPO2 greater than 90% while participating in Description: Walking short community distances on RA or least amount of supplemental O2 possible. Outcome: Met This Shift * Sidra Qureshi PTA - 11/10/2021 10:29 AM CDT 11/10/21 0837 Therapy Visit Subjective Pt in bed upon arrival and agrees to PT. Pt states she has a bellyache due to needing tohave a BM. Reason for admission Admitted to swing bed at [facility] 11/05/21 from acute care at [facility] for OLIVE. Had been hospitalized prior to 10/22/21 for pneumonia also at [facility]. Relevant Comorbidities/ Personal Factors to PT 10/15/21 PNA and d/c'd home 10/21/21 and returned 10/22/21 due to weakness. Trans to [facility] 11/05/21. PMH includes afib, aflutter, CAD, HTN, DM, HLD, GERD, HYPOTHYROIDISM Verified Two Patient Identifiers Yes Patient consents to therapy Yes Acute Inpatient PT Time Calculation PT Start Time 0837 PT Stop Time 0900 PT Time Calculation (min) 23 min Precautions General Precautions Fall Risk (Pt signed alarm waiver.) PPE Used Face mask Instructed on Precautions Yes;Verbalizes understanding;Demonstrates understanding Pain Pain (Pt reports bellyache as stated in Subjective.) Activity Tolerance Endurance Quality Good Pre-activity VS O2 sat on RA 93% VS Response During Activity O2 sat on RA after amb 91% Activity Tolerance Comments Pt somewhat SOB after amb, pt partially blames wearing a facemask to amb in hallway. Cognition Overall Cognitive Status WFL Bed Mobility Supine to Sit Independent Sit to Supine Independent TRANSFERS Stand Pivot Transfers Independent Other (Comment) Stand to sit Indep. Gait Gait Assistance SBA/supervision;Contact guard assist Assistive Device None (Pt declined using cane, but occasionally reached for rail in hallway.) Distance Ambulated (ft) 100 ft (Pt declined a second amb trial due to having a bellyache. Pt was educated that walking may help stimulate having a BM, which would help her abdominal discomfort, but pt still declined.) Pattern Shuffle steps Weight Bearing Status Total Balance Sitting - Static Independent Sitting - Dynamic Independent Standing - Static SBA;Independent Standing - Dynamic SBA;CGA Exercises Ankle Pumps x15 B Heelslides x 15 Straight Leg Raise x 15 Hip Abduction x 15 Other (Comment) Pt also performed supine bicep curls, forearm pronation/supination, and shoulder flex with elbow ext x 10 reps each. Pt requested performing a few UE, stating she felt she needed to work her arms. Patient/Family Training Bed Mobility x Transfer Training x Gait Training x Precautions x Exercise Program x PT Assessment PT Assessment Pt met her bed mobility, sit to stand, and activity tolerance goals this session. Pt is progressing towards her other PT goals. Plan Progress Progressing toward goals If this is the last treatment note,it will serve as the discharge summary Yes End of Session End of Session Safety Call light within reach (Pt signed alarm waiver.) End of Session Comment Pt in bed at end of session. * Eunice Hodgson RN - 11/09/2021 11:24 PM CDT Problem: Discharge Planning Goal: Knowledge of discharge instructions Outcome: Progressing Problem: Skin Integrity - Impaired Goal: Absence of new skin breakdown Outcome: Progressing Problem: Venous Thromboembolism - Risk of Goal: Absence of venous thromboembolism Outcome: Progressing Problem: Reduced risk for falls/injury Goal: Reduced Risk for Falls/Injury Outcome: Progressing Goal: Reduced Risk of Confusion (Acute vs Chronic) Outcome: Progressing Goal: Reduced Risk of Symptomatic Depression Outcome: Progressing Goal: Reduced Risk of Altered Elimination Outcome: Progressing Goal: Reduced Risk of Dizziness/Vertigo/Balance Outcome: Progressing Goal: Reduced Risk of Polypharmacy Outcome: Progressing Problem: Pain Goal: Patient's pain/discomfort is manageable Description: Assess and monitor patient's pain using appropriate pain scale. Collaborate with interdisciplinary team and initiate plan and interventions as ordered. Re-assess patient's pain level 30 - 60 minutes after pain management intervention. Outcome: Progressing Problem: Safety Goal: Patient will be injury free during hospitalization Description: Assess and monitor vitals signs, neurological status including level of consciousness and orientation. Assess patient's risk for falls and implement fall prevention plan of care and interventions per hospital policy. Ensure arm band on, uncluttered walking paths in room, adequate room lighting, call light and overbed table within reach, bed in low position, wheels locked, side rails up per policy, and non-skid footwear provided. Outcome: Progressing Problem: Daily Care Goal: Daily care needs are met Description: Assess and monitor ability to perform self care and identify potential discharge needs. Outcome: Progressing Problem: Psychosocial Needs Goal: Demonstrates ability to cope with hospitalization/illness Description: Assess and monitor patients ability to cope with his/her illness. Outcome: Progressing Goal: Collaborate with patient/family/caregiver to identify patient specific goals for this hospitalization Outcome: Progressing Problem: Discharge Barriers Goal: Patient's discharge needs are met Description: Collaborate with interdisciplinary team and initiate plans and interventions as needed. Outcome: Progressing * Cassandra Clark RN - 11/09/2021 6:52 PM CDT Problem: Discharge Planning Goal: Knowledge of discharge instructions Outcome: Progressing Problem: Skin Integrity - Impaired Goal: Absence of new skin breakdown Outcome: Progressing Problem: Venous Thromboembolism - Risk of Goal: Absence of venous thromboembolism Outcome: Progressing Problem: Reduced risk for falls/injury Goal: Reduced Risk for Falls/Injury Outcome: Progressing Goal: Reduced Risk of Confusion (Acute vs Chronic) Outcome: Progressing Goal: Reduced Risk of Symptomatic Depression Outcome: Progressing Goal: Reduced Risk of Altered Elimination Outcome: Progressing Goal: Reduced Risk of Dizziness/Vertigo/Balance Outcome: Progressing Goal: Reduced Risk of Polypharmacy Outcome: Progressing Problem: Pain Goal: Patient's pain/discomfort is manageable Description: Assess and monitor patient's pain using appropriate pain scale. Collaborate with interdisciplinary team and initiate plan and interventions as ordered. Re-assess patient's pain level 30 - 60 minutes after pain management intervention. Outcome: Progressing Problem: Safety Goal: Patient will be injury free during hospitalization Description: Assess and monitor vitals signs, neurological status including level of consciousness and orientation. Assess patient's risk for falls and implement fall prevention plan of care and interventions per hospital policy. Ensure arm band on, uncluttered walking paths in room, adequate room lighting, call light and overbed table within reach, bed in low position, wheels locked, side rails up per policy, and non-skid footwear provided. Outcome: Progressing Problem: Daily Care Goal: Daily care needs are met Description: Assess and monitor ability to perform self care and identify potential discharge needs. Outcome: Progressing Problem: Psychosocial Needs Goal: Demonstrates ability to cope with hospitalization/illness Description: Assess and monitor patients ability to cope with his/her illness. Outcome: Progressing Goal: Collaborate with patient/family/caregiver to identify patient specific goals for this hospitalization Outcome: Progressing Problem: Discharge Barriers Goal: Patient's discharge needs are met Description: Collaborate with interdisciplinary team and initiate plans and interventions as needed. Outcome: Progressing Problem: Bathing Goal: STG - Pt will bathe body by alternating sit/stand with Description: Modified independence. Outcome: Progressing * Sidra Qureshi, [employer] - 11/09/2021 11:14 AM CDT Pt met her bed mobility and activity tolerance goals this date and nearly met her other PT goals. Problem: Mobility Goal: STG - Pt will ambulate Description: 100' x2 with least AD with supervision for short community distances. Outcome: Progressing Problem: Transfers Goal: STG - Pt will perform bed mobility Description: Indep/supervision Outcome: Met This Shift Goal: STG - Pt will perform sit to stand Description: Indep/supervision with least AD Outcome: Progressing Goal: STG - Pt will perform stand pivot transfer Description: Indep/supervision with least AD Outcome: Progressing Problem: Activity Tolerance Goal: STG - Pt will maintain SPO2 greater than 90% while participating in Description: Walking short community distances on RA or least amount of supplemental O2 possible. Outcome: Met This Shift * Sidra Qureshi PTA - 11/09/2021 11:12 AM CDT 11/09/21 0835 Therapy Visit Subjective Pt seated on EOB upon arrival and is agreeable to PT. Reason for admission Admitted to swing bed at [facility] 11/05/21 from acute care at [facility] for OLIVE. Had been hospitalized prior to 10/22/21 for pneumonia also at [facility]. Relevant Comorbidities/ Personal Factors to PT 10/15/21 PNA and d/c'd home 10/21/21 and returned 10/22/21 due to weakness. Trans to [facility] 11/05/21. PMH includes afib, aflutter, CAD, HTN, DM, HLD, GERD, HYPOTHYROIDISM Verified Two Patient Identifiers Yes Patient consents to therapy Yes Acute Inpatient PT Time Calculation PT Start Time 0825 PT Stop Time 0859 PT Time Calculation (min) 34 min PT Therapy Interruption (min) 30 actual PT mins Precautions General Precautions Fall Risk (Pt signed alarm waiver.) PPE Used Face mask Instructed on Precautions Yes;Verbalizes understanding;Demonstrates understanding Pain Pain Patient does not offer or c/o pain Activity Tolerance Endurance Quality Good Pre-activity VS O2 sat ib RA 92%. VS Response During Activity O2 sat on RA 90% after both trials of amb. Cognition Overall Cognitive Status WFL Bed Mobility Sit to Supine Independent TRANSFERS Stand Pivot Transfers Independent;SBA/supervision (with cane) Sit to Stand SBA/supervision;Independent Other (Comment) Stand to sit Indep/suprv. Gait Gait Assistance Contact guard assist;SBA/supervision Assistive Device Cane Distance Ambulated (ft) (100' x 2) Pattern Shuffle steps Weight Bearing Status Total Balance Sitting - Static Independent Sitting - Dynamic Independent Standing - Static SBA;Support of one upper extremity Standing - Dynamic CGA;SBA;Support of one upper extremity Exercises Other (Comment) Pt received a phone call after getting in bed and dismissed PT staff. Patient/Family Training Bed Mobility x Transfer Training x Gait Training x Precautions x PT Assessment PT Assessment Pt perofmred well amb with the cane this session and was able to meet her activity tolerance goal. Plan Progress Progressing toward goals If this is the last treatment note,it will serve as the discharge summary Yes End of Session End of Session Safety Call light within reach (Pt signed alarm waiver.) End of Session Comment Pt in bed at end of session talking on the phone. * Rudy Spivey, [facility] - 11/09/2021 8:22 AM CDT Warfarin Pharmacy to Dose Monitoring Progress Note Radha Huynh is a 76-year-old female for which pharmacy has been consulted to dose warfarin for mechanical aortic valve and Afib . Goal INR is 2.5-3.5. 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 No date: Anxiety No date: Atrial flutter ([facility]) No date: Cataract No date: Chronic anticoagulation Comment: due to mechanical heart valve No date: Chronic pain No date: Diabetes mellitus ([facility]) 2004: H/O mechanical aortic valve replacement No date: Hypertension Home warfarin dose: 5 mg daily Bridging agent: none Vitamin K usage: No; (if yes, indicate date, dose, and route) Diet: PO, eating 75-100% of meals Recent Labs Lab 11/03/21 0649 11/04/21 0811 11/05/21 0702 11/06/21 0537 11/07/21 0531 11/08/21 0512 11/09/21 0623 INR 2.2 2.4 2.8 < > 3.1 3.2 3.7 HGB 7.9* 7.9* 8.2* -- -- -- -- HCT 26.5* 26.3* 26.8* -- -- -- -- PLT 188 189 201 -- -- -- -- < > = values in this interval not displayed. Date INR Dose Received 11/04 2.4 4 mg 11/05 2.8 3 mg 11/06 3.0 3 mg 11/07 3.1 3 mg 11/08 3.2 Interacting Medications: Potential to increase INR: none Potential to decrease INR: methimazole Potential to increase the risk of bleeding: none Assessment/Plan: INR today is Supratherapeutic The plan is to give 1 mg this evening. Pharmacy will continue to monitor labs daily, adjusting the dose as clinically appropriate. Thank you for this consult, RUDY SPIVEY RPH 11/09/2021 8:15 AM * Eunice Hodgson RN - 11/08/2021 11:31 PM CDT Problem: Discharge Planning Goal: Knowledge of discharge instructions Outcome: Progressing Problem: Skin Integrity - Impaired Goal: Absence of new skin breakdown Outcome: Progressing Problem: Venous Thromboembolism - Risk of Goal: Absence of venous thromboembolism Outcome: Progressing Problem: Reduced risk for falls/injury Goal: Reduced Risk for Falls/Injury Outcome: Progressing Goal: Reduced Risk of Confusion (Acute vs Chronic) Outcome: Progressing Goal: Reduced Risk of Symptomatic Depression Outcome: Progressing Goal: Reduced Risk of Altered Elimination Outcome: Progressing Goal: Reduced Risk of Dizziness/Vertigo/Balance Outcome: Progressing Goal: Reduced Risk of Polypharmacy Outcome: Progressing Problem: Pain Goal: Patient's pain/discomfort is manageable Description: Assess and monitor patient's pain using appropriate pain scale. Collaborate with interdisciplinary team and initiate plan and interventions as ordered. Re-assess patient's pain level 30 - 60 minutes after pain management intervention. Outcome: Progressing Problem: Safety Goal: Patient will be injury free during hospitalization Description: Assess and monitor vitals signs, neurological status including level of consciousness and orientation. Assess patient's risk for falls and implement fall prevention plan of care and interventions per hospital policy. Ensure arm band on, uncluttered walking paths in room, adequate room lighting, call light and overbed table within reach, bed in low position, wheels locked, side rails up per policy, and non-skid footwear provided. Outcome: Progressing Problem: Daily Care Goal: Daily care needs are met Description: Assess and monitor ability to perform self care and identify potential discharge needs. Outcome: Progressing Problem: Psychosocial Needs Goal: Demonstrates ability to cope with hospitalization/illness Description: Assess and monitor patients ability to cope with his/her illness. Outcome: Progressing Goal: Collaborate with patient/family/caregiver to identify patient specific goals for this hospitalization Outcome: Progressing Problem: Discharge Barriers Goal: Patient's discharge needs are met Description: Collaborate with interdisciplinary team and initiate plans and interventions as needed. Outcome: Progressing * Sidra Qureshi PTA - 11/08/2021 4:08 PM CDT 11/08/21 1607 Therapy Visit Subjective Attempted PT session again at 1606. Pt was still sleeping soundly. Will plan to see pt tomorrow AM. Reason for admission Admitted to swing bed at [facility] 11/05/21 from acute care at [facility] for OLIVE. Had been hospitalized prior to 10/22/21 for pneumonia also at [facility]. Relevant Comorbidities/ Personal Factors to PT 10/15/21 PNA and d/c'd home 10/21/21 and returned 10/22/21 due to weakness. Trans to [facility] 11/05/21. PMH includes afib, aflutter, CAD, HTN, DM, HLD, GERD, HYPOTHYROIDISM Verified Two Patient Identifiers Yes Patient consents to therapy (Pt sound asleep.) * Nella Rosario, PT - 11/08/2021 3:05 PM CDT 11/08/21 1500 Therapy Visit Subjective Attempted PT treatment at 1453. Patient was sound asleep. Will attempt PT treatment at later time if able. * Kaylie Murry RN - 11/08/2021 1:56 PM CDT Problem: Discharge Planning Goal: Knowledge of discharge instructions Outcome: Progressing Problem: Skin Integrity - Impaired Goal: Absence of new skin breakdown Outcome: Progressing Problem: Venous Thromboembolism - Risk of Goal: Absence of venous thromboembolism Outcome: Progressing Problem: Reduced risk for falls/injury Goal: Reduced Risk for Falls/Injury Outcome: Progressing Goal: Reduced Risk of Confusion (Acute vs Chronic) Outcome: Progressing Goal: Reduced Risk of Symptomatic Depression Outcome: Progressing Goal: Reduced Risk of Altered Elimination Outcome: Progressing Goal: Reduced Risk of Dizziness/Vertigo/Balance Outcome: Progressing Goal: Reduced Risk of Polypharmacy Outcome: Progressing Problem: Pain Goal: Patient's pain/discomfort is manageable Description: Assess and monitor patient's pain using appropriate pain scale. Collaborate with interdisciplinary team and initiate plan and interventions as ordered. Re-assess patient's pain level 30 - 60 minutes after pain management intervention. Outcome: Progressing Problem: Safety Goal: Patient will be injury free during hospitalization Description: Assess and monitor vitals signs, neurological status including level of consciousness and orientation. Assess patient's risk for falls and implement fall prevention plan of care and interventions per hospital policy. Ensure arm band on, uncluttered walking paths in room, adequate room lighting, call light and overbed table within reach, bed in low position, wheels locked, side rails up per policy, and non-skid footwear provided. Outcome: Progressing Problem: Daily Care Goal: Daily care needs are met Description: Assess and monitor ability to perform self care and identify potential discharge needs. Outcome: Progressing Problem: Psychosocial Needs Goal: Demonstrates ability to cope with hospitalization/illness Description: Assess and monitor patients ability to cope with his/her illness. Outcome: Progressing Goal: Collaborate with patient/family/caregiver to identify patient specific goals for this hospitalization Outcome: Progressing Problem: Discharge Barriers Goal: Patient's discharge needs are met Description: Collaborate with interdisciplinary team and initiate plans and interventions as needed. Outcome: Progressing * Linda Bryant RN - 11/08/2021 12:41 PM CDT 11/08/21 1241 Interdisciplinary Group Information Next Conference Date 11/12/21 Interdisciplinary Group Conference Team Members Present Physician;Case/Care management;Nursing;PT/OT;Pharmacy;Dietary;Physician Advisor Barriers to Discharge Barriers Other (Comment) Other (Comment)follow up Pt in a swing bed with goals through 11/13. PT states progressing * Nella Rosario, PT - 11/08/2021 11:35 AM CDT Patient met her bed mobility goal this session and is progressing well towards all other goals. * Nella Rosario, PT - 11/08/2021 11:34 AM CDT 11/08/21 1100 Therapy Visit Subjective Patient was seated in recliner and was agreeable to PT. Reason for admission Admitted to swing bed at [facility] 11/05/21 from acute care at [facility] for OLVIE. Had been hospitalized prior to 10/22/21 for pneumonia also at [facility]. Verified Two Patient Identifiers Yes Patient consents to therapy Yes Acute Inpatient PT Time Calculation PT Start Time 1049 PT Stop Time 1118 PT Time Calculation (min) 29 min Precautions General Precautions Bed Alarm;Chair Alarm;Fall Risk;Supplemental oxygen (1L O2) PPE Used Face mask;Gloves Instructed on Precautions Yes;Verbalizes understanding;Demonstrates understanding Pain Pain Yes Pain Score Did not rate Location L shoulder Activity Tolerance Endurance Tolerates 20 - 30 min activity with rests Endurance Quality Good Limiting Factors to Endurance Fatigue;Acute deconditioning Pre-activity VS At rest on 1L O2 sats were 98%. VS Response During Activity After AMB O2 sats on 1L O2 were 94%. Patient then removed O2 when changing her clothes and walking from the bathroom. O2 sats on RA were 94%. Kept O2 off at end of session, but close by to patient and educated her on use if needed. She verbalized understanding. Notified nursing staff. Cognition Overall Cognitive Status WFL Bed Mobility Sit to Supine Modified independence TRANSFERS Sit to Stand SBA/supervision Bed to Chair SBA/supervision Other (Comment) stand to sit: SBA Gait Gait Assistance SBA/supervision;Contact guard assist Assistive Device 2 Wheeled walker;Cane Distance Ambulated (ft) (120', 150, 10') Pattern Shuffle steps Weight Bearing Status Total Other (Comment) Patient AMB with ww and supervision for safety. Assist also needed to manage O2 tank. She did AMb a short 10' distance with SPC and CGA, but had a lateral deviation to the R and verbalized that she would rather use the ww right now. Stairs Other (Comment) NT Balance Sitting - Static Independent Sitting - Dynamic Modified independence Standing - Static Modified independence;Support of both upper extremities Standing - Dynamic SBA;Support of both upper extremities Other (Comment) Patient donned her shirt in standing with no LOB. She sat down to don her underwearand pants. She was indep with LB and UB dressing. No concerns for safety or LOB with dressing tasks. Exercises Ankle Pumps x15 B Glut Sets x15 Hip Flexion x15 B Hip Abduction x10 B Sitting LE Exercise LAQ x 10 B Other (Comment) Exercises were performed with patient in sitting Patient/Family Training Bed Mobility x Transfer Training x Gait Training x Stair Climbing x Precautions x Exercise Program x PT Assessment PT Assessment Patient is progressing well in therapy. She was able to remove O2 this session and remained greater than 92% on RA. She attempted to AMB with a cane, but was more unsteady so ww was continued to be used. She is on pace to DC earlier than 11/13/21. Anticipate patient can DC 11/12/21. * Candi Vargas OT - 11/08/2021 10:17 AM CDT Problem: Bathing Goal: STG - Pt will bathe body by alternating sit/stand with Description: Modified independence. Outcome: Progressing Problem: Grooming Goal: STG - Pt will complete grooming while standing sink/tableside with Description: Modified independence. Outcome: Progressing Problem: Toileting Goal: STG - Pt will complete 3/3 toilet tasks (clothing up, clothing down, hygiene) with Description: Modified independence. Outcome: Progressing Problem: Transfers Goal: STG - Pt will perform a toilet transfer with Description: Modified independence. Outcome: Progressing Problem: Mobility Goal: STG - Pt will complete in-room functional mobility Description: Using AD PRN w/ modified independence. Outcome: Progressing * Candi Mcclure V, OT - 11/08/2021 10:16 AM CDT 11/08/21 1000 Therapy Visit Reason for admission Admitted to swing bed at [facility] 11/05/21 from acute care at [facility] for OLIVE. Had been hospitalized prior to 10/22/21 for pneumonia also at [facility]. Ordering Provider Lola Gastelum MD Verified Two Patient Identifiers Yes Patient consents to therapy Yes Acute Inpatient OT Time Calculation OT Start Time 905 OT Stop Time 925 OT Time Calculation (min) 20 min Precautions General Precautions Bed Alarm;Chair Alarm;Fall Risk;Supplemental oxygen PPE Used Face mask;Gloves Instructed on Precautions Yes Subjective Subjective Pt in recliner, agreeable to OT. Reporting she needs to go to the bathroom. Do you think they will let me go home Thursday? I miss my dog. Pain Pain Patient does not offer or c/o pain Activity Tolerance Endurance Tolerates 20 - 30 min activity with rests Endurance Quality Fair Cognition Overall Cognitive Status WFL ADL Eating/Feeding Assistance Independent;Sitting in chair Grooming Assistance Stand by;Standing at sink Grooming Deficit Setup;Supervision/safety Grooming Comment Pt stood at bathroom sink to perform hand hygiene with SBA. Bathing Assistance Modified independent (Device);Sitting in chair (Sponge bath in recliner, did not want to wash perineal region.) Bathing Deficit Setup Bathing Comment Completed sponge bath from recliner level without any difficulty washing face, UB,and LB. Declined washing perineal region as pt just cleaned area after toileting prior to bath. LE Dressing Comment Able to don socks independently from seated position. Toileting Assistance Stand by Toileting Deficit Supervision/safety;Grab bar use Toileting Comment Pt completed toileting including pericare and clothing management with SBA, progressing to mod indep using walker and grab bar. Additional Comments Pt encouraged to put on clothing today, pt declining. IADL Leisure Activities Accepted Leisure Activity Preferences Other (Comment) (watching TV, looking at pictures on cellphone) Functional Transfers Sit to Stand SBA/supervision (without AD) Bed to Chair SBA/supervision Toilet Transfers Supervision Functional Mobility Pt requiring frequent cues on walker use and safety as pt often walking away without walker. Pt stating I don't think I need that. Pt requiring SBA for mobility with and withoutwalker. Increased safety noted with walker use for mobility compared to without. Patient/Family Training Transfer Training use of 2ww Precautions Fall prevention, use of chair alarm OT Assessment OT Assessment Radha is demo'ing good progress towards OT goals. She completed toileting, sponge bathing, and grooming standing at sink with SBA, progressing to mod indep. Decreased safety noted with walker use as pt often does not want to use walker. Plan Progress Progressing toward goals End of Session End of Session Safety Chair alarm set/activated;Call light within reach End of Session Comment Pt in recliner. * Brandy Simmons PharmD - 11/08/2021 8:48 AM CDT Warfarin Pharmacy to Dose Monitoring Progress Note Radha Huynh is a 76-year-old female for which pharmacy has been consulted to dose warfarin for mechanical aortic valve and Afib. Goal INR is 2.5-3.5. 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 No date: Anxiety No date: Atrial flutter ([facility]/HCC) No date: Cataract No date: Chronic anticoagulation Comment: due to mechanical heart valve No date: Chronic pain No date: Diabetes mellitus (CMS/HCC) 2004: H/O mechanical aortic valve replacement No date: Hypertension Home warfarin dose: 5 mg daily Bridging agent: none Vitamin K usage: No; (if yes, indicate date, dose, and route) Diet: PO, eating 50-75% of meals Recent Labs Lab 11/03/21 0649 11/04/21 0811 11/05/21 0702 11/06/21 0537 11/07/21 0531 11/08/21 0512 INR 2.2 2.4 2.8 3.0 3.1 3.2 HGB 7.9* 7.9* 8.2* -- -- -- HCT 26.5* 26.3* 26.8* -- -- -- PLT 188 189 201 -- -- -- Date INR Dose Received 11/04 2.4 4 mg 11/05 2.8 3 mg 11/06 3.0 3 mg?? 11/07 3.1 3 mg?? 11/08 3.2 ?? Interacting Medications: Potential to increase INR:??none Potential to decrease INR:??methimazole (home med) Potential to increase the risk of bleeding:??none ?? Assessment/Plan: INR today is Therapeutic The plan is to give 3 mg this evening. Pharmacy will continue to monitor labs daily, adjusting the dose as clinically appropriate. Thank you for this consult, BRANDY SIMMONS PharmD 11/08/2021 8:48 AM * Herlinda Dupree RN - 11/08/2021 3:12 AM CDT Problem: Discharge Planning Goal: Knowledge of discharge instructions Outcome: Progressing Problem: Skin Integrity - Impaired Goal: Absence of new skin breakdown Outcome: Progressing Problem: Venous Thromboembolism - Risk of Goal: Absence of venous thromboembolism Outcome: Progressing Problem: Reduced risk for falls/injury Goal: Reduced Risk for Falls/Injury Outcome: Progressing Goal: Reduced Risk of Confusion (Acute vs Chronic) Outcome: Progressing Goal: Reduced Risk of Symptomatic Depression Outcome: Progressing Goal: Reduced Risk of Altered Elimination Outcome: Progressing Goal: Reduced Risk of Dizziness/Vertigo/Balance Outcome: Progressing Goal: Reduced Risk of Polypharmacy Outcome: Progressing Problem: Pain Goal: Patient's pain/discomfort is manageable Description: Assess and monitor patient's pain using appropriate pain scale. Collaborate with interdisciplinary team and initiate plan and interventions as ordered. Re-assess patient's pain level 30 - 60 minutes after pain management intervention. Outcome: Progressing Problem: Safety Goal: Patient will be injury free during hospitalization Description: Assess and monitor vitals signs, neurological status including level of consciousness and orientation. Assess patient's risk for falls and implement fall prevention plan of care and interventions per hospital policy. Ensure arm band on, uncluttered walking paths in room, adequate room lighting, call light and overbed table within reach, bed in low position, wheels locked, side rails up per policy, and non-skid footwear provided. Outcome: Progressing Problem: Daily Care Goal: Daily care needs are met Description: Assess and monitor ability to perform self care and identify potential discharge needs. Outcome: Progressing Problem: Psychosocial Needs Goal: Demonstrates ability to cope with hospitalization/illness Description: Assess and monitor patients ability to cope with his/her illness. Outcome: Progressing Goal: Collaborate with patient/family/caregiver to identify patient specific goals for this hospitalization Outcome: Progressing Problem: Discharge Barriers Goal: Patient's discharge needs are met Description: Collaborate with interdisciplinary team and initiate plans and interventions as needed. Outcome: Progressing * Rudy Bradshaw, MANAGER [employer] - 11/07/2021 3:29 PM CDT 11/07/21 1500 Therapy Visit Subjective Patient supine in bed. States she needs a TUMS. Nsg notified. Reason for admission Admitted to swing bed at [facility] 11/05/21 from acute care at [facility] for OLIVE. Had been hospitalized prior to 10/22/21 for pneumonia also at [facility]. Verified Two Patient Identifiers Yes Patient consents to therapy Yes Acute Inpatient PT Time Calculation PT Start Time 1452 PT Stop Time 1519 PT Time Calculation (min) 27 min Precautions General Precautions Bed Alarm;Chair Alarm;Fall Risk;Supplemental oxygen PPE Used Face mask Instructed on Precautions Yes Other 1L O2 Pain Pain Patient does not offer or c/o pain Activity Tolerance Endurance Tolerates 20 - 30 min activity with rests Endurance Quality Fair Pre-activity VS SPO2 93% on 1L O2 Post Activity VS Recovery 100% after gait Cognition Overall Cognitive Status WFL Bed Mobility Supine to Sit SBA/supervision TRANSFERS Sit to Stand SBA/supervision Gait Gait Assistance SBA/supervision Assistive Device 2 Wheeled walker Weight Bearing Status Total Other (Comment) fatigue, no noticable SOB Balance Sitting - Static Independent Sitting - Dynamic Modified independence Standing - Static SBA;Support of both upper extremities Standing - Dynamic CGA;SBA;Support of both upper extremities Exercises Sitting LE Exercise AP, LAQ, marching x10 each Patient/Family Training Bed Mobility x Transfer Training x Gait Training x Precautions x Exercise Program x PT Assessment PT Assessment Patient reported feeling better, she stated after gait she was less SOB than she was this AM. Recommendation PT Recommendation Swing bed unit;Home PT Plan Progress Progressing toward goals If this is the last treatment note,it will serve as the discharge summary Yes End of Session End of Session Safety Bed alarm set/activated;Call light within reach End of Session Comment Patient requested going back to bed. States she was up in the chair most of the AM * Yenifer Nance PTA - 11/07/2021 11:33 AM CDT 11/07/21 1123 Therapy Visit Subjective Patient seated in recliner upon PT arrival. States that she is feeling better today. L SH pain is improved since pain patch applied. Reason for admission Admitted to swing bed at [facility] 11/05/21 from acute care at [facility] for OLIVE. Had been hospitalized prior to 10/22/21 for pneumonia also at [facility]. Verified Two Patient Identifiers Yes Patient consents to therapy Yes Acute Inpatient PT Time Calculation PT Start Time 1103 PT Stop Time 1121 PT Time Calculation (min) 18 min Precautions General Precautions Bed Alarm;Chair Alarm;Fall Risk;Supplemental oxygen PPE Used Face mask;Gloves Instructed on Precautions Yes Other 1L O2 Pain Pain Patient does not offer or c/o pain Activity Tolerance Pre-activity VS SPO2 96% on 1L O2 Post Activity VS Recovery SPO2 83-99% after amb; cues for deep breathing techniques. TRANSFERS Sit to Stand SBA/supervision Gait Gait Assistance SBA/supervision Assistive Device 2 Wheeled walker Distance Ambulated (ft) (75) Weight Bearing Status Total Other (Comment) SOB, fatigue, LE weakness Exercises Sitting LE Exercise AP, LAQ, marching x10 each Patient/Family Training Transfer Training x Gait Training x Precautions x Exercise Program x PT Assessment PT Assessment Patient with increased fatigue and weakness this a.m. Increased SOB with amb noted. Plan Progress Progressing toward goals If this is the last treatment note,it will serve as the discharge summary Yes End of Session End of Session Safety Chair alarm set/activated;Call light within reach End of Session Comment Patient reclined in chair upon PT exit. * Neelima Burgess, ION - 11/07/2021 11:12 AM CDT Problem: Bathing Goal: STG - Pt will bathe body by alternating sit/stand with Description: Modified independence. Outcome: Progressing Problem: Grooming Goal: STG - Pt will complete grooming while standing sink/tableside with Description: Modified independence. Outcome: Progressing Problem: Dressing: Lower Extremities Goal: STG - Pt will complete lower body dressing with Description: Modified independence. Outcome: Progressing Problem: Mobility Goal: STG - Pt will complete in-room functional mobility Description: Using AD PRN w/ modified independence. Outcome: Progressing * Neelima Burgess, OT - 11/07/2021 11:11 AM CDT 11/07/21 1100 Therapy Visit Reason for admission Admitted to swing bed at [facility] 11/05/21 from acute care at [facility] for OLIVE. Had been hospitalized prior to 10/22/21 for pneumonia also at [facility]. Acute Inpatient OT Time Calculation OT Start Time 1020 OT Stop Time 1048 OT Time Calculation (min) 28 min Precautions General Precautions Bed Alarm;Chair Alarm;Fall Risk;Supplemental oxygen PPE Used Face mask;Gloves Instructed on Precautions Yes Other 1L O2 Subjective Subjective Pt in bed upon arrival, would like to shower Pain Pain Patient does not offer or c/o pain Activity Tolerance Endurance Tolerates 20 - 30 min activity with rests Endurance Quality Fair VS Response During Activity O2 sats 95% after shower Activity Tolerance Comments Pt fatigued after shower however recovers quickly. 02 sats WNL on 1L O2. Cognition Overall Cognitive Status WFL ADL Grooming Assistance Stand by;Standing at sink Grooming Deficit Setup;Supervision/safety Grooming Comment Pt stood at bathroom sink to perform oral hygiene with SBA. Pt sat EOB to wash hair with shampoo cap with set up assistance. Bathing Assistance Stand by;Alternating sit/stand Bathing Deficit Setup;Supervision/safety Bathing Comment Pt completed shower while standing with SBA. Completes all components independently. Demonstrates good balance. Slightly fatigued after showering, educated on energy conservation and taking breaks as needed. UE Dressing Assistance Stand by;Sitting in chair UE Dressing Comment don/[facility] LE Dressing Assistance Stand by;Sitting at EOB LE Dressing Deficit Setup;Supervision/safety LE Dressing Comment pt dons underwear while seated EOB with SBA Toileting Assistance Stand by Additional Comments Pt impulsive at times throughout treatment Bed Mobility Supine to Sit SBA/supervision Functional Transfers Sit to Stand SBA/supervision Bed to Chair SBA/supervision Toilet Transfers Supervision Shower Transfers Supervision;Grab bars Functional Mobility SBA mobility to and from bathroom and around room Patient/Family Training Self Cares energy conservation OT Assessment OT Assessment Radha is progressing well towards OT goals, able to complete ADLs at SBA level today. Most hindered by decreased activity tolerance. Pt continues to benefit from OT services. Plan Progress Progressing toward goals End of Session End of Session Safety Chair alarm set/activated;Call light within reach * Brandy Simmons, PharmD - 11/07/2021 9:09 AM CDT Warfarin Pharmacy to Dose Monitoring Progress Note Radha Huynh is a 76-year-old female for which pharmacy has been consulted to dose warfarin for mechanical aortic valve and Afib. Goal INR is 2.5-3.5. 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 No date: Anxiety No date: Atrial flutter ([facility]) No date: Cataract No date: Chronic anticoagulation Comment: due to mechanical heart valve No date: Chronic pain No date: Diabetes mellitus ([facility]) 2004: H/O mechanical aortic valve replacement No date: Hypertension Home warfarin dose: 5 mg daily Bridging agent: none Vitamin K usage: No; (if yes, indicate date, dose, and route) Diet: PO, eating 30-100% of meals Recent Labs Lab 11/03/21 0649 11/04/21 0811 11/05/21 0702 11/06/21 0537 11/07/21 0531 INR 2.2 2.4 2.8 3.0 3.1 HGB 7.9* 7.9* 8.2* -- -- HCT 26.5* 26.3* 26.8* -- -- PLT 188 189 201 -- -- Date INR Dose Received 11/04 2.4 4 mg 11/05 2.8 3 mg 11/06 3.0 3 mg?? 11/07 3.1 ?? Interacting Medications: Potential to increase INR: none Potential to decrease INR: methimazole (home med) Potential to increase the risk of bleeding: none ?? Assessment/Plan: INR today is Therapeutic The plan is to give 3 mg this evening. Pharmacy will continue to monitor labs daily, adjusting the dose as clinically appropriate. Thank you for this consult, BRANDY SIMMONS, [employer] 11/07/2021 9:09 AM * Herlinda Dupree RN - 11/07/2021 3:13 AM CDT Problem: Discharge Planning Goal: Knowledge of discharge instructions Outcome: Progressing Problem: Skin Integrity - Impaired Goal: Absence of new skin breakdown Outcome: Progressing Problem: Venous Thromboembolism - Risk of Goal: Absence of venous thromboembolism Outcome: Progressing Problem: Reduced risk for falls/injury Goal: Reduced Risk for Falls/Injury Outcome: Progressing Goal: Reduced Risk of Confusion (Acute vs Chronic) Outcome: Progressing Goal: Reduced Risk of Symptomatic Depression Outcome: Progressing Goal: Reduced Risk of Altered Elimination Outcome: Progressing Goal: Reduced Risk of Dizziness/Vertigo/Balance Outcome: Progressing Goal: Reduced Risk of Polypharmacy Outcome: Progressing Problem: Pain Goal: Patient's pain/discomfort is manageable Description: Assess and monitor patient's pain using appropriate pain scale. Collaborate with interdisciplinary team and initiate plan and interventions as ordered. Re-assess patient's pain level 30 - 60 minutes after pain management intervention. Outcome: Progressing Problem: Safety Goal: Patient will be injury free during hospitalization Description: Assess and monitor vitals signs, neurological status including level of consciousness and orientation. Assess patient's risk for falls and implement fall prevention plan of care and interventions per hospital policy. Ensure arm band on, uncluttered walking paths in room, adequate room lighting, call light and overbed table within reach, bed in low position, wheels locked, side rails up per policy, and non-skid footwear provided. Outcome: Progressing Problem: Daily Care Goal: Daily care needs are met Description: Assess and monitor ability to perform self care and identify potential discharge needs. Outcome: Progressing Problem: Psychosocial Needs Goal: Collaborate with patient/family/caregiver to identify patient specific goals for this hospitalization Outcome: Progressing Problem: Discharge Barriers Goal: Patient's discharge needs are met Description: Collaborate with interdisciplinary team and initiate plans and interventions as needed. Outcome: Progressing * Sidra Qureshi, MANAGER INCOME TAX - 11/06/2021 4:15 PM CDT 11/06/21 1444 Therapy Visit Subjective Pt in bed upon arrival. States she just returned to bed after being up in the chair for a long while. Pt is agreeable to PT. Reason for admission Admitted to swing bed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 Smokeless tobacco: Never Used ??? Tobacco comment: non smoker Vaping Use ??? Vaping Use: Never used Substance Use Topics ??? Alcohol use: Not Currently ??? Drug use: Yes Types: Hydrocodone Comment: chronic pain Family History Problem Relation Name Age of Onset ??? Heart Father ??? Diabetes Father ??? Heart Mother Allergies Allergen Reactions ??? Atorvastatin Leg Pain Leg pain/cramps. Resolved after stopping. ??? Tape Contact Dermatitis ??? Bacitracin Other (see comment) ??? Benzalkonium Other (see comment) ??? Gramicidin Other (see comment) ??? Hydrocortisone Other (see comment) ??? Neomycin Other (see comment) ??? Polymyxin B Other (see comment) Review of Systems: Review of Systems Constitutional: Positive for malaise/fatigue. Negative for chills, fever and weight loss. HENT: Positive for hearing loss. Negative for ear pain, nosebleeds and tinnitus. Respiratory: Positive for cough. Cardiovascular: Negative for chest pain, palpitations, orthopnea and claudication. Gastrointestinal: Negative for abdominal pain, diarrhea, heartburn, nausea and vomiting. Genitourinary: Negative for dysuria, flank pain and urgency. Musculoskeletal: Positive for joint pain (shoulders). Skin: Negative for rash. Neurological: Negative for dizziness and tingling. Psychiatric/Behavioral: Negative for depression, hallucinations, substance abuse and suicidal ideas. Vital signs: Filed Vitals: 11/05/21 2330 11/06/21 0328 11/06/21 0700 11/06/21 1642 BP: 89/40 139/74 118/56 Pulse: 89 89 98 Resp: 16 20 Temp: 98.4 ??F (36.9 ??C) 98.3 ??F (36.8 ??C) 97.9 ??F (36.6 ??C) TempSrc: Tympanic Tympanic Tympanic Oral SpO2: (!) 86% 96% 98% Weight: Height: Intake/Output Summary (Last 24 hours) at 11/06/2021 1718 Last data filed at 11/06/2021 1300 Gross per 24 hour Intake 440 ml Output -- Net 440 ml PHYSICAL EXAM: Physical Exam Constitutional: Appearance: Normal appearance. She is obese. She is not toxic-appearing or diaphoretic. HENT: Head: Normocephalic and atraumatic. Right Ear: External ear normal. Left Ear: External ear normal. Nose: Nose normal. Mouth/Throat: Mouth: Mucous membranes are dry. Pharynx: No oropharyngeal exudate. Comments: Edentulous Eyes: Extraocular Movements: Extraocular movements intact. Pupils: Pupils are equal, round, and reactive to light. Cardiovascular: Rate and Rhythm: Normal rate. Pulses: Normal pulses. Heart sounds: Normal heart sounds. Pulmonary: Effort: Pulmonary effort is normal. No respiratory distress. Breath sounds: Normal breath sounds. No stridor. No wheezing or rhonchi. Abdominal: General: There is no distension. Palpations: Abdomen is soft. There is no mass. Tenderness: There is no guarding. Hernia: No hernia is present. Musculoskeletal: Cervical back: Neck supple. Neurological: General: No focal deficit present. Mental Status: She is alert and oriented to person, place, and time. Psychiatric: Mood and Affect: Mood normal. Behavior: Behavior normal. Labs: Recent Labs Lab 11/03/21 0649 11/04/21 0811 11/05/21 0702 WBC 4.8 4.7 4.4* RBC 2.57* 2.54* 2.61* HGB 7.9* 7.9* 8.2* HCT 26.5* 26.3* 26.8* MCV 103.1* 103.5* 102.7* MCH 30.7 31.1* 31.4* MCHC 29.8* 30.0* 30.6* PLT 188 189 201 RDW 12.5 12.5 12.6 MPV 13.2* 13.1* 13.3* PERNEU 52.8 55.1 51.2 PERLYM 23.4 20.1 25.5 PERMON 17.6 18.6 18.3 L[facility] 1.13 0.94* 1.13 MONOC 0.85 0.87* 0.81 EOSC 0.24 0.24 0.19 BASOC 0.05 0.04 0.03 DTYPE AUTOMATED DIFFERENTIAL AUTOMATED DIFFERENTIAL AUTOMATED DIFFERENTIAL Recent Labs Lab 11/03/21 0649 11/04/21 0811 11/05/21 0702 NA 143 142 139 K 4.5 4.5 4.1 CL 113* 109* 106 CO2 29.5 31.0 30.7 AGAP 0.5* 2.0* 2.3* BUN 22* 21* 24* CR 1.11* 1.09* 1.22* BUNCREATININ 19.8 19.3 19.7 GLU 75 74 76 CA 10.3* 10.2* 9.8 TP 5.5* 5.5* 5.6* ALB 2.4* 2.4* 2.5* TBIL 0.4 0.4 0.5 ALKP 82 86 89 AST 20 21 22 ALT 25 24 21 Recent Labs Lab 11/04/21 0811 11/05/21 0702 11/06/21 0537 INR 2.4 2.8 3.0 No results for input(s): TROP, CPK, MB in the last 168 hours. Cultures: Blood: No results found for this visit on 11/05/21 (from the past 168 hour(s)). Urine: No results found for this visit on 11/05/21 (from the past 168 hour(s)). Radiology studies: Assessment: Physical Deconditioning Multiple factors recent PNA, HF exacerbation Acute respiratory failure. Observed walking with therapist CHD S/P NSTEMI Pharmaceutic stress Test 11/04 Negative for ischemia Acute on Chronic HFrEF Continue BB/MING HTN Monitor BP adjust medication as indicated OLIVE superimposed on CKD BUN/creatinine back to baseline Status post AVR Mechanical valve Continue warfarin anticoagulation Monitor INR Status post hypotension Possibly medication induced i.e. furosemide 11/06 episode of hypotension BP 89/40 2330 NSVT 9 beat We will continue BB Macrocytic anemia Hyperthyroidism Continue methimazole Right MCA aneurysm Follow-up with vascular surgery Chronic disease history: Dementia, sleep apnea, GERD, dyslipidemia,Osteoporosis, CKD, vitamin D deficiency CODE STATUS: Full code Surrogate: Sister Shannon Vigil VTE prophylaxis moderate risk: Continue Plan: Continue PT/OT I certify that swing bed services for more than two midnights are medically necessary for this patient. SANJANA VILLA MD documented in this encounter Plan of Treatment Upcoming Encounters Date Type Department Care Team (Late st Contact Info) Description 04/14/2024 2:00 PM SLIP COVER OPERATOR Office Visit [facility] - [facility] [address], [address] [place] [address] Julio Pulido MD [address] [place] [address] documented as of this encounter Goals Goal Patient Goal Type Associated Problems Recent Progress Patient-Stated? [facility] - patient able to perform ADLs independently General On track(2023 9:49 AM CDT) Dianne Corona, DALE Note: 12/17/23: Patient stated she is independent with ASL's. Establish Plan for Symptom Monitoring-CHF General On track(2023 11:36 AM SLIP COVER OPERATOR) Dianne Corona, RN Note: Patient will [...] Symptom Monitoring-COPD General On track(2023 11:36 AM SLIP COVER OPERATOR) Dianne Corona, DALE Note: Patient will [...] Symptom Monitoring-DM General On track(2023 4:33 PM SLIP COVER OPERATOR) Dianne Corona RN Note: Patient will [...] Symptom Monitoring-HTN General On track(2023 4:33 PM SLIP COVER OPERATOR) Dianne Corona, DALE Note: Patient will [...] Associated Diagnosis Comments PROTHROMBIN TIME, VENOUS Routine 11/12/2021 5:22 AM CDT PROTHROMBIN TIME, VENOUS Routine 11/11/2021 6:13 AM CDT PROTHROMBIN TIME, VENOUS Routine 11/10/2021 7:56 AM CDT PROTHROMBIN TIME, VENOUS Routine 11/09/2021 6:23 AM CDT PROTHROMBIN TIME, VENOUS Routine 11/08/2021 5:12 AM CDT PROTHROMBIN TIME, VENOUS Routine 11/07/2021 5:31 AM CDT POCT GLUCOSE - MELLO DOCKED DEVICE Routine 11/06/2021 5:47 AM CDT PROTHROMBIN TIME, VENOUS Routine 11/06/2021 5:37 AM CDT MRSA SCREENING Routine 11/05/2021 11:40 PM CDT POCT GLUCOSE - MELLO DOCKED DEVICE Routine 11/05/2021 10:11 PM CDT documented in this encounter Results * (ABNORMAL) PROTIME/INR, VENOUS (11/12/2021 5:22 AM CDT) PROTIME 26.6(H) 9.1 - 12.4 SEC 11/12/2021 6:13 AM CDT [facility] INR 2.4 11/12/2021 6:13 AM CDT [facility] Comment: Recommend INR ranges for Oral Anticoagulant Therapy: Mechanical Cardiac Values 2.5-3.5 All others indication 2.0-3.0 11/12/2021 5:22 AM CDT Lola Gastelum MD LABORATORY Final Re sult [facility] [address] [place] [address], [place] [phone] * (ABNORMAL) PROTIME/INR, VENOUS (11/11/2021 6:13 AM CDT) PROTIME 26.0(H) 9.1 - 12.4 SEC 11/11/2021 7:17 AM CDT [facility] INR 2.3 11/11/2021 7:17 AM CDT [facility] Comment: Recommend INR ranges for Oral Anticoagulant Therapy: Mechanical Cardiac Values 2.5-3.5 All others indication 2.0-3.0 11/11/2021 6:13 AM CDT Lola Gastelum MD LABORATORY Final Re sult Performing Organization Address [facility] Co de Phone Number [facility] [address] [place] [address], * (ABNORMAL) PROTIME/INR, VENOUS (11/10/2021 7:56 AM CDT) PROTIME 31.6(H) 9.1 - 12.4 SEC 11/10/2021 10:46 AM CDT [facility] INR 2.8 11/10/2021 10:46 AM CDT [facility] Comment: Recommend INR ranges for Oral Anticoagulant Therapy: Mechanical Cardiac Values 2.5-3.5 All others indication 2.0-3.0 11/10/2021 7:56 AM CDT Lola Gastelum MD LABORATORY Final Re sult Performing Organization Address [facility] Co de Phone Number [facility] [address] [place] [address], * (ABNORMAL) PROTIME/INR, VENOUS (11/09/2021 6:23 AM CDT) PROTIME 41.3(H) 9.1 - 12.4 SEC 11/09/2021 7:09 AM CDT [facility] INR 3.7 11/09/2021 7:09 AM CDT [facility] Comment: Recommend INR ranges for Oral Anticoagulant Therapy: Mechanical Cardiac Values 2.5-3.5 All others indication 2.0-3.0 11/09/2021 6:23 AM CDT Lola Gastelum MD LABORATORY Final Re sult Performing Organization Address [facility]/ZIP Co de Phone Number [facility] [address] [place] [address], [place] [phone] * (ABNORMAL) PROTIME/INR, VENOUS (11/08/2021 5:12 AM CDT) PROTIME 35.6(H) 9.1 - 12.4 SEC 11/08/2021 6:04 AM CDT [facility] INR 3.2 11/08/2021 6:04 AM CDT [facility] Comment: Recommend INR ranges for Oral Anticoagulant Therapy: Mechanical Cardiac Values 2.5-3.5 All others indication 2.0-3.0 11/08/2021 5:12 AM CDT Lola Gastelum MD LABORATORY Final Re sult [facility] [address] [place] [address], [place] [phone] * (ABNORMAL) PROTIME/INR, VENOUS (11/07/2021 5:31 AM CDT) PROTIME 34.8(H) 9.1 - 12.4 SEC 11/07/2021 6:05 AM CDT [facility] INR 3.1 11/07/2021 6:05 AM CDT [facility] Comment: Recommend INR ranges for Oral Anticoagulant Therapy: Mechanical Cardiac Values 2.5-3.5 All others indication 2.0-3.0 11/07/2021 5:31 AM CDT Lola Gastelum MD LABORATORY Final Re sult [facility] [address] [place] [address], [place] [phone] * POCT glucose (11/06/2021 5:47 AM CDT) GLUCOSE POC 87 70 - 110 mg/dL 11/06/2021 6:06 AM CDT [facility] 11/06/2021 5:47 AM CDT Sanjana Villa MD POCT ORDERABLES - DEVICE Final Result Performing Organization Address [facility] Co de Phone Number [facility] [address] [place] [address], [place] [phone] * (ABNORMAL) PROTIME/INR, VENOUS (11/06/2021 5:37 AM CDT) PROTIME 33.9(H) 9.1 - 12.4 SEC 11/06/2021 6:18 AM CDT [facility] INR 3.0 11/06/2021 6:18 AM CDT [facility] Comment: Recommend INR ranges for Oral Anticoagulant Therapy: Mechanical Cardiac Values 2.5-3.5 All others indication 2.0-3.0 11/06/2021 5:37 AM CDT Lola Gastelum MD LABORATORY Final Re sult [facility] [address] [place] [address], [place] [phone] * MRSA SCREENING (11/05/2021 11:40 PM CDT) SPEC DESCRIPTION NASAL 11/05/2021 11:45 PM CDT [facility] SPECIAL REQUESTS NO SPECIAL REQUEST 11/05/2021 11:45 PM CDT [facility] CULTURE RESULT NO MRSA ISOLATED 11/07/2021 8:54 AM CDT [facility] SPECIMEN FROM INTERNAL NOSE / Unknown 11/05/2021 11:40 PM CDT 11/06/2021 6:04 AM CDT Lola Gastelum MD MICROBIOLOGY - GENERAL O RDERABLES Final Result Performing Organization Address [facility]/ZIP Co de Phone Number [facility] [address] [place] [address], [place] [phone] * (ABNORMAL) POCT glucose (11/05/2021 10:11 PM CDT) [facility] GLUCOSE POC 172(H) 70 - 110 mg/dL 11/05/2021 10:14 PM CDT [facility] 11/05/2021 10:1 1 PM CDT Mateo Gallo MD POCT ORDERABLES - DEVICE Final Result Performing Organization Address [facility] Co de Phone Number [facility] [address] [place] [address], [place] [phone] documented in this encounter Visit Diagnoses Diagnosis Physical deconditioning- Primary Debility, unspecified Paroxysmal atrial flutter ([facility]/HCC HHS/HCC) Atrial flutter documented in this encounter Administered Medications Inactive Administered Medications - up to 3 most recent administrations Medication Order MAR Action Action Date Dose Rate Site acetaminophen (TYLENOL) tablet 500 mg 500 mg, Oral, DAILY PRN, Mild pain (Scale 1 - 3), Headaches, Fever, Discomfort, Starting on Thu11/06/21 at 0709, Until Thu11/12/21 at 1554, Maximum dose of acetaminophen is 4000 mg from all sources in 24 hours. calcium carbonate (TUMS) chewable tablet 500 mg 500 mg, Oral, Daily as needed, Indigestion, Starting on Thu11/07/21 at 1444, Until Thu11/12/21 at 1554 Given 11/11/2021 9:54 PM CDT 500 mg Given 11/07/2021 3:55 PM CDT 500 mg ferrous sulfate (65 mg elemental) tablet 325 mg 325 mg, Oral, Daily with breakfast, First dose on Thu11/06/21 at 0800, Until Discontinued Given 11/12/2021 8:38 AM CDT 325 mg Given 11/11/2021 8:33 AM CDT 325 mg Given 11/10/2021 10:15 AM CDT 325 mg fluticasone propionate (FLONASE) 50 MCG/ACT nasal spray 2 spray 2 spray, Nasal, Daily, First dose on Thu11/06/21 at 0900, Until Discontinued Given 11/12/2021 8:39 AM CDT 2 sprays Given 11/11/2021 8:33 AM CDT 2 sprays Given 11/10/2021 10:20 AM CDT 2 sprays furosemide (LASIX) tablet 60 mg 60 mg, Oral, Daily, First dose on Thu11/06/21 at 0900, Until Discontinued Given 11/12/2021 8:39 AM CDT 60 mg Given 11/11/2021 8:33 AM CDT 60 mg Given 11/10/2021 10:15 AM CDT 60 mg gabapentin (NEURONTIN) capsule 300 mg 300 mg, Oral, 2 times daily, First dose on Thu11/05/21 at 2100, Until Discontinued Given 11/12/2021 8:38 AM CDT 300 mg Given 11/11/2021 9:53 PM CDT 300 mg Given 11/11/2021 8:32 AM CDT 300 mg HYDROcodone-acetaminophen (NORCO) 10-325 MG tablet 1 tablet 1 tablet, Oral, Every 6 hours PRN, Moderate pain (Scale 4 - 7), Severe pain (Scale 8 - 10), Starting on Thu11/05/21 at 1933, Until Thu11/12/21 at 1554, Maximum dose of acetaminophen is 4000 mg from all sources in 24 hours.Do not take with alprazolam. No further refills until seen in office.Indications:Chronic Pain Given 11/12/2021 8:44 AM CDT 1 tablet Given 11/11/2021 9:53 PM CDT 1 tablet Given 11/10/2021 9:47 PM CDT 1 tablet lidocaine 4 % patch 1 patch 1 patch, Transdermal, Administer over 12 Hours, Daily, First dose (after last modification) on Thu11/06/21 at 1700, Until Discontinued Patch Applied 11/11/2021 6:02 PM CDT 1 patch Left Shoulder Patch Applied 11/10/2021 5:02 PM CDT 1 patch Left Shoulder Patch Applied 11/09/2021 5:27 PM CDT 1 patch Left Shoulder lisinopril (PRINIVIL) tablet 2.5 mg 2.5 mg, Oral, Daily, First dose on Thu11/06/21 at 0900, Until Discontinued Given 11/12/2021 8:38 AM CDT 2.5 mg Given 11/11/2021 8:33 AM CDT 2.5 mg Given 11/09/2021 9:20 AM CDT 2.5 mg magnesium hydroxide (MILK OF MAGNESIA) 400 MG/5ML suspension 15 mL 15 mL, Oral, Daily as needed, Constipation, Starting on Thu11/09/21 at 2130, Until Thu11/12/21 at 1554, Shake Well Given 11/10/2021 10:33 AM CDT 15 mLs melatonin tablet 3 mg 3 mg, Oral, Nightly at bedtime, First dose on Thu11/12/21 at 0145, Until Discontinued Given 11/12/2021 1:54 AM CDT 3 mg methIMAzole (TAPAZOLE) tablet 5 mg 5 mg, Oral, Daily, First dose on Thu11/06/21 at 0900, Until Discontinued, HAZARDOUS MEDICATION: wear single chemotherapy approved gloves. Do not open or split. If crushing, use approved closed-system crushing device for hazardous medications. Given 11/12/2021 8:38 AM CDT 5 mg Given 11/11/2021 8:33 AM CDT 5 mg Given 11/10/2021 10:17 AM CDT 5 mg metoprolol tartrate (LOPRESSOR) tablet 12.5 mg 12.5 mg, Oral, 2 times daily, First dose on Thu11/05/21 at 2100, Until Discontinued Given 11/12/2021 8:39 AM CDT 12.5 mg Given 11/11/2021 9:54 PM CDT 12.5 mg Given 11/11/2021 8:32 AM CDT 12.5 mg pantoprazole EC (PROTONIX) tablet 20 mg 20 mg, Oral, Daily, First dose on Thu11/06/21 at 0900, Until Discontinued, Do not break, chew, or crush. Given 11/12/2021 8:38 AM CDT 20 mg Given 11/11/2021 8:32 AM CDT 20 mg Given 11/10/2021 10:15 AM CDT 20 mg Senna (SENOKOT) 8.6 MG tablet 8.6 mg 8.6 mg, Oral, Daily, First dose on Thu11/09/21 at 2200, Until Discontinued Given 11/12/2021 8:38 AM CDT 8.6 mg Given 11/11/2021 8:32 AM CDT 8.6 mg Given 11/09/2021 9:38 PM CDT 8.6 mg venlafaxine XR (EFFEXOR-XR) 24 hr capsule 150 mg 150 mg, Oral, Daily, First dose on Thu11/06/21 at 0900, Until Discontinued, Swallow capsule whole or it may be opened and the contents sprinkled on applesauce. Given 11/12/2021 8:38 AM CDT 150 mg Given 11/11/2021 8:32 AM CDT 150 mg Given 11/10/2021 10:18 AM CDT 150 mg vitamin D3 (cholecalciferol) tablet 1,000 Units 1,000 Units, Oral, Daily, First dose on Thu11/06/21 at 0900, Until Discontinued, 1000 units = 25 mcg Given 11/12/2021 8:38 AM CDT 1,000 Units Given 11/11/2021 8:33 AM CDT 1,000 Units Given 11/10/2021 10:17 AM CDT 1,000 Units warfarin (COUMADIN) pharmacy to dose placeholder Oral, See admin instructions, Starting on Thu11/05/21 at 2007, Until Thu11/12/21 at 1554, Warfarin Placeholder Only: Do NOT document administrations on this placeholder. (Use medication on MAY to document administrations or contact pharmacy if medication order not entered.) warfarin (COUMADIN) tablet 1 mg 1 mg, Oral, Once, 1 dose, On Thu11/09/21 at 1700, HAZARDOUS MEDICATION: wear single chemotherapy approved gloves. Do not open or split. If crushing, use approved closed-system crushing device for hazardous medications. Given 11/09/2021 5:27 PM CDT 1 mg warfarin (COUMADIN) tablet 2.5 mg 2.5 mg, Oral, Once, 1 dose, On Thu11/10/21 at 1700, HAZARDOUS MEDICATION: wear single chemotherapy approved gloves. Do not open or split. If crushing, use approved closed-system crushing device for hazardous medications. Given 11/10/2021 5:02 PM CDT 2.5 mg warfarin (COUMADIN) tablet 3 mg 3 mg, Oral, Once, 1 dose, On Thu11/06/21 at 1700, HAZARDOUS MEDICATION: wear single chemotherapy approved gloves. Do not open or split. If crushing, use approved closed-system crushing device for hazardous medications. Given 11/06/2021 5:28 PM CDT 3 mg warfarin (COUMADIN) tablet 3 mg 3 mg, Oral, Once, 1 dose, On Sandi 11/07/21 at 1700, HAZARDOUS MEDICATION: wear single chemotherapy approved gloves. Do not open or split. If crushing, use approved closed-system crushing device for hazardous medications. Given 11/07/2021 5:00 PM CDT 3 mg warfarin (COUMADIN) tablet 3 mg 3 mg, Oral, Once, 1 dose, On Thu11/08/21 at 1700, HAZARDOUS MEDICATION: wear single chemotherapy approved gloves. Do not open or split. If crushing, use approved closed-system crushing device for hazardous medications. Given 11/08/2021 4:49 PM CDT 3 mg warfarin (COUMADIN) tablet 3 mg 3 mg, Oral, Once, 1 dose, On Thu11/11/21 at 1700, HAZARDOUS MEDICATION: wear single chemotherapy approved gloves. Do not open or split. If crushing, use approved closed-system crushing device for hazardous medications. Given 11/11/2021 6:02 PM CDT 3 mg warfarin (COUMADIN) tablet 3 mg 3 mg, Oral, Once, 1 dose, On Tu11/12/21 at 1700, HAZARDOUS MEDICATION: wear single chemotherapy approved gloves. Do not open or split. If crushing, use approved closed-system crushing device for hazardous medications. documented in this encounter Active and Recently Administered Medications Times are shown in CDT. Scheduled Medication Order 11/10/2021 11/11/2021 11/12/2021 ferrous sulfate (65 mg elemental) tablet 325 mg 325 mg, Oral, Daily with breakfast, First dose on Thu11/06/21 at 0800, Until Discontinued 1015 (Given - Provider: Radha Valle RN) 0833 (Given - Provider: Kaylie Murry RN) 0838 (Given - Provider: Kaylie Murry RN) fluticasone propionate (FLONASE) 50 MCG/ACT nasal spray 2 spray 2 spray, Nasal, Daily, First dose on Thu11/06/21 at 0900, Until Discontinued 1020 (Given - Provider: Radha Valle RN) 0833 (Given - Provider: Kaylie Murry RN) 0839 (Given - Provider: Kaylie Murry RN) furosemide (LASIX) tablet 60 mg 60 mg, Oral, Daily, First dose on Thu11/06/21 at 0900, Until Discontinued 1015 (Given - Provider: Radha Valle RN) 0833 (Given - Provider: Kaylie Murry RN) 0839 (Given - Provider: Kaylie Murry RN) gabapentin (NEURONTIN) capsule 300 mg 300 mg, Oral, 2 times daily, First dose on Thu11/05/21 at 2100, Until Discontinued 1015 (Given - Provider: Radha Valle RN)2147 (Given - Provider: Herlinda Dupree RN) 0832 (Given - Provider: Kaylie Murry RN)2153 (Given - Provider: Herlinda Dupree RN) 0838 (Given - Provider: Kaylie Murry RN) lidocaine 4 % patch 1 patch 1 patch, Transdermal, Administer over 12 Hours, Daily, First dose (after last modification) on Thu11/06/21 at 1700, Until Discontinued 0357 (Patch Removed - Provider: Eunice Hodgson RN)1702 (Patch Applied - Provider: Radha Valle RN) 0530 (Patch Removed - Provider: Herlinda Dupree RN)1802 (Patch Applied - Provider: Kaylie Murry RN) 0555 (Patch Removed - Provider: Herlinda Dupree, DALE) lisinopril (PRINIVIL) tablet 2.5 mg 2.5 mg, Oral, Daily, First dose on Thu11/06/21 at 0900, Until Discontinued 0900 (Not Given - Provider: Radha Valle RN - Reason: Other - Comment: bp 105/49) 0833 (Given - Provider: Kaylie Murry RN) 0838 (Given - Provider: Kaylie Murry RN) melatonin tablet 3 mg 3 mg, Oral, Nightly at bedtime, First dose on Thu11/12/21 at 0145, Until Discontinued 0154 (Given - Provider: Herlinda Dupree RN) methIMAzole (TAPAZOLE) tablet 5 mg 5 mg, Oral, Daily, First dose on Thu11/06/21 at 0900, Until Discontinued, HAZARDOUS MEDICATION: wear single chemotherapy approved gloves. Do not open or split. If crushing, use approved closed-system crushing device for hazardous medications. 1017 (Given - Provider: Radha Valle RN) 0833 (Given - Provider: Kaylie Murry RN) 0838 (Given - Provider: Kaylie Murry RN) metoprolol tartrate (LOPRESSOR) tablet 12.5 mg 12.5 mg, Oral, 2 times daily, First dose on Thu11/05/21 at 2100, Until Discontinued 1016 (Given - Provider: Radha Valle RN)2147 (Given - Provider: Herlinda Dupree RN) 0832 (Given - Provider: Kaylie Murry RN)2154 (Given - Provider: Herlinda Dupree RN) 0839 (Given - Provider: Kaylie Murry RN) pantoprazole EC (PROTONIX) tablet 20 mg 20 mg, Oral, Daily, First dose on Thu11/06/21 at 0900, Until Discontinued, Do not break, chew, or crush. 1015 (Given - Provider: Radha Valle RN) 0832 (Given - Provider: Kaylie Murry RN) 0838 (Given - Provider: Kaylie Murry RN) Senna (SENOKOT) 8.6 MG tablet 8.6 mg 8.6 mg, Oral, Daily, First dose on Thu11/09/21 at 2200, Until Discontinued 0832 (Given - Provider: Kaylie Murry RN) 0838 (Given - Provider: Kaylie Murry RN) venlafaxine XR (EFFEXOR-XR) 24 hr capsule 150 mg 150 mg, Oral, Daily, First dose on Thu11/06/21 at 0900, Until Discontinued, Swallow capsule whole or it may be opened and the contents sprinkled on applesauce. 1018 (Given - Provider: Radha Valle RN) 0832 (Given - Provider: Kaylie Murry RN) 0838 (Given - Provider: Kaylie Murry RN) vitamin D3 (cholecalciferol) tablet 1,000 Units 1,000 Units, Oral, Daily, First dose on Thu11/06/21 at 0900, Until Discontinued, 1000 units = 25 mcg 1017 (Given - Provider: Radha Valle RN) 0833 (Given - Provider: Kaylie Murry RN) 0838 (Given - Provider: Kaylie Murry RN) warfarin (COUMADIN) pharmacy to dose placeholder(Linked Group 1) Oral, See admin instructions, Starting on Thu11/05/21 at 2007, Until Thu11/12/21 at 1554, Warfarin Placeholder Only: Do NOT document administrations on this placeholder. (Use medication on MAY to document administrations or contact pharmacy if medication order not entered.) warfarin (COUMADIN) tablet 2.5 mg (COMPLETED) 2.5 mg, Oral, Once, 1 dose, On Thu11/10/21 at 1700, HAZARDOUS MEDICATION: wear single chemotherapy approved gloves. Do not open or split. If crushing, use approved closed-system crushing device for hazardous medications. 170 (Given - Provider: Radha Valle RN) warfarin (COUMADIN) tablet 3 mg (COMPLETED) 3 mg, Oral, Once, 1 dose, On 11/11/21 at 1700, HAZARDOUS MEDICATION: wear single chemotherapy approved gloves. Do not open or split. If crushing, use approved closed-system crushing device for hazardous medications. 180 (Given - Provider: Kaylie Murry RN) warfarin (COUMADIN) tablet 3 mg 3 mg, Oral, Once, 1 dose, On Thu11/12/21 at 1700, HAZARDOUS MEDICATION: wear single chemotherapy approved gloves. Do not open or split. If crushing, use approved closed-system crushing device for hazardous medications. PRN Medication Order 11/10/2021 11/11/2021 11/12/2021 acetaminophen (TYLENOL) tablet 500 mg 500 mg, Oral, DAILY PRN, Mild pain (Scale 1 - 3), Headaches, Fever, Discomfort, Starting on Thu11/06/21 at 0709, Until Thu11/12/21 at 1554, Maximum dose of acetaminophen is 4000 mg from all sources in 24 hours. albuterol sulfate HFA 108 (90 Base) MCG/ACT inhaler 2 puff 2 puff, Inhalation, Every 6 hours PRN, Wheezing, Starting on Thu11/05/21 at 1933, Until Thu11/12/21 at 1554 ALPRAZolam (XANAX) tablet 0.25 mg 0.25 mg, Oral, 2 times daily PRN, Anxiety, Starting on Thu11/05/21 at 1933, Until Thu11/12/21 at 1554 calcium carbonate (TUMS) chewable tablet 500 mg 500 mg, Oral, Daily as needed, Indigestion, Starting on Thu11/07/21 at 1444, Until Thu11/12/21 at 1554 2154 (Given - Provider: Herlinda Dupree RN) HYDROcodone-acetaminophe n (NORCO) 10-325 MG tablet 1 tablet 1 tablet, Oral, Every 6 hours PRN, Moderate pain (Scale 4 - 7), Severe pain (Scale 8 - 10), Starting on Thu11/05/21 at 1933, Until Thu11/12/21 at 1554, Maximum dose of acetaminophen is 4000 mg from all sources in 24 hours.Do not take with alprazolam. No further refills until seen in office. 1030 (Given - Provider: Radha Valle RN)2146 (Given - Provider: Herlinda Dupree RN) 2152 (Given - Provider: Herlinda Dupree RN) 0844 (Given - Provider: Kaylie Murry RN) magnesium hydroxide (MILK OF MAGNESIA) 400 MG/5ML suspension 15 mL 15 mL, Oral, Daily as needed, Constipation, Starting on 11/09/21 at 2130, Until Thu11/12/21 at 1554, Shake Well 1033 (Given - Provider: Radha Valle, DALE) Linked Groups Order Group 1: Pharmacy to dose warfarin (COUMADIN) (CANCELED) Routine, Once, On Thu11/05/21 at 2007, For 1 occurrence, [facility] IN[facility]? 2.5-3.5 And warfarin (COUMADIN) pharmacy to dose placeholderJump to med Oral, See admin instructions, Starting on Thu11/05/21 at 2006, Until Thu11/12/21 at 1554, Warfarin Placeholder Only: Do NOT document administrations on this placeholder. (Use medication on MAY to document administrations or contact pharmacy if medication order not entered.) documented in this encounter Additional Health Concerns Assessment Noted Time PHQ-9 Depression Total Score: 0 05/25/19 9:23 AM CDT documented as of this encounter Care Teams Supply Chain Logistics Manager Relationship Specialty Start Date End Date Sanjeev Webster DO [address] [place] [id number] PCP - General FAMILY PRACTICE 09/25/20 Dianne Johnson, RN [address] [place] [address] Gimp Tacker (Ambulatory) REGISTERED NURSE 08/14/20 documented as of this encounter
--- OUTSIDE RECORDS SUMMARY | 2024-03-15 01:03 | XMS_ITS | Encounter Summary ---
Author Organization [facility] Address [facility] [facility] [place] [address] [place] [address] Care Team Providers Care Nursing Home Director Name Role Phone Dianne Johnson RN Unavailable [phone] Sanjeev Webster DO Primary Care Provider + Reason for Visit * Reason Onset Date Comments Results 11/05/2021 Encounter Details Date Type Department Care Team (Late st Contact Info) Description 11/05/2021 Telephone [facility] Med/Surg [id number] [place] [address] Barbara Mazariegos, RN Results Social History Tobacco Use Types [...] 1 08/06/2023 [facility] Answer Date [...] Author Status Yes 10/22/2021 10:00 PM CDT Tresa Lemons RN Active * Do you have difficulty dressing or bathing? Answer Date of Assessment Author Status No 10/22/2021 10:00 PM CDT Tresa Lemons RN Active * Because of a physical, mental, or emotional condition, do you have difficulty doing errands alone such as visiting a doctor's office or shopping? Answer Date of Assessment Author Status Yes 10/22/2021 10:00 PM CDT Tresa Lemons RN Active documented as of this encounter [...] Date Author Status No 10/22/2021 10:00 PM CDT Tresa Lemons RN Active documented in this encounter Progress Notes * Yenifer Ingram MA - 11/05/2023 3:33 PM CDT Record request sent. * Yenifer Ingram MA - 11/05/2023 3:33 PM CDT ----- Message from Dr. Sanjeev Webster sent at 11/02/2023 9:56 PM CDT ----- Pt is now seeing hematology from available data, Dr. Phillips. Please request full records (I do not see an actual OV note). Will defer recommendations to them. documented in this encounter Plan of Treatment Upcoming Encounters Date Type Department Care Team (Late st Contact Info) Description 04/14/2024 2:00 PM SPRAY GUNNER Office Visit [facility] Medical Group Multispecialty Care - [facility] [address] [facility], [address] [place] [address] Julio Pulido MD [address] [place] [address] documented as of this encounter Goals Goal Patient Goal Type Associated Problems Recent Progress Patient-Stated? Author Health - patient able to perform ADLs independently General On track(2023 9:49 AM CDT) Dianne Corona RN Note: 12/17/23: Patient stated she is independent with ASL's. Establish Plan for Symptom Monitoring-CHF General On track(2023 11:36 AM SPRAY GUNNER) Dianne Corona, RN Note: Patient will recognize [...] Symptom Monitoring-COPD General On track(2023 11:36 AM SPRAY GUNNER) Dianne Corona, RN Note: Patient will recognize [...] Symptom Monitoring-DM General On track(2023 4:33 PM SPRAY GUNNER) Dianne Corona RN Note: Patient will [...] Symptom Monitoring-HTN General On track(2023 4:33 PM SPRAY GUNNER) Dianne Corona, RN Note: Patient will monitor [...] Rule Out 01/13/2022 01/13/2022 01/13/2022 12:48 PM SPRAY GUNNER COVID-19 Rule Out 01/13/2022 01/13/2022 01/14/2022 12:15 AM SPRAY GUNNER COVID-19 Rule Out 03/18/2022 03/18/2022 03/18/2022 12:27 PM SPRAY GUNNER COVID-19 Rule Out 03/18/2022 03/18/2022 03/18/2022 12:57 PM SPRAY GUNNER COVID-19 Rule Out 03/18/2022 03/18/2022 03/19/2022 1:58 PM SPRAY GUNNER COVID-19 Rule Out 08/26/2022 08/26/2022 08/26/2022 4:56 PM CDT Assessment Noted Time PHQ-9 Depression Total Score: 0 05/25/19 9:23 AM CDT documented as of this encounter Care Teams Nursing Home Director Relationship Specialty Start Date End Date Sanjeev Webster DO [address] [place] [id number] PCP - General FAMILY PRACTICE 09/25/20 Dianne Johnson, RN [address] [place] [id number] Rip And Groove Machine Operator (Ambulatory) REGISTERED NURSE 08/14/20 documented as of this encounter
--- OUTSIDE RECORDS SUMMARY | 2024-03-15 01:03 | XMS_ITS | Encounter Summary ---
Author Organization [facility] Address [facility] [facility] [place] [address] [place] [address] Care Team Providers Care Sound Tester Name Role Phone Dianne Johnson RN Unavailable [phone] Sanjeev Webster DO Primary Care Provider + Encounter Details Date Type Department Care Team (Latest Contact Info) Description 11/12/2021 Scan HEALTH INFO SRVCS Scanned, Documents Social [...] st Contact Info) Description 04/14/2024 2:00 PM GRIT REMOVAL OPERATOR Office Visit [facility] Medical Group Multispecialty Care - [facility] [address] [facility], [address] [place] [phone] Julio Pulido MD [address] [place] [address] documented as of this encounter Goals Goal Patient Goal Type Associated Problems Recent Progress Patient-Stated? Author Health - patient able to perform ADLs independently General On track(2023 9:49 AM CDT) No Dianne Johnson RN Note: 12/17/23: Patient stated she is independent with ASL's. Establish Plan for Symptom Monitoring-CHF General On track(2023 11:36 AM GRIT REMOVAL OPERATOR) Dianne Corona, RN Note: Patient will [...] Symptom Monitoring-COPD General On track(2023 11:36 AM GRIT REMOVAL OPERATOR) Dianne Corona RN Note: Patient will [...] Symptom Monitoring-DM General On track(2023 4:33 PM GRIT REMOVAL OPERATOR) Dianne Corona RN Note: Patient will [...] Symptom Monitoring-HTN General On track(2023 4:33 PM GRIT REMOVAL OPERATOR) Dianne Corona RN Note: Patient will [...] as of this encounter Care Teams Sound Tester Relationship Specialty Start Date End Date Sanjeev Webster DO [address] [place] [id number] PCP - General FAMILY PRACTICE 09/25/20 Dianne Johnson, RN [address] [place] [address] Enrichment Specialist (Ambulatory) REGISTERED NURSE 08/14/20 documented as of this encounter
--- OUTSIDE RECORDS SUMMARY | 2024-03-15 01:03 | XMS_ITS | Encounter Summary ---
Author Organization [facility] Address [facility] [facility] [place] [address] [place] [address] Care Team Providers Care Senior Sales Associate Name Role Phone Dianne Johnson RN Unavailable [phone] Sanjeev Wesbter DO Primary Care Provider + Reason for Visit * Reason Onset Date Comments Medication Request 12/12/2021 Encounter Details Date Type Department Care Team (Late st Contact Info) Description 12/12/2021 Telephone [facility] Medical Group Family & Internal Medicine [place] [id number] [place] [address] Sanjeev Webster DO [facility] [place] [address] Medication Request Social History Tobacco [...] Progress Notes * Yenifer Ingram MA - 12/12/2021 3:46 PM CDT Spoke with patient and advised her of Dr. Mishra recommendations. Patient agrees and pharmacy verified. rx sent. * Sanjeev Webster DO - 12/12/2021 2:46 PM CDT Can try trazodone 25 mg nightly. * Scarlett Guerrero MA - 12/12/2021 2:32 PM CDT Patient is asking for something to help her sleep. States that since getting out of the hospital she has not been able to sleep well. She said the alprazolam does not help. [email or web address] lira Cb#[phone] documented in this encounter Plan of Treatment Upcoming Encounters Date Type Department Care Team (Late st Contact Info) Description 04/14/2024 2:00 PM SODIUM METHYLATE OPERATOR Office Visit [facility] Medical Group Multispecialty Care - [facility] [address] [facility], [address] [place] [phone] Julio Pulido MD [address] [place] [address] documented as of this encounter Goals Goal Patient Goal Type Associated Problems Recent Progress Patient-Stated? Author Health - patient able to perform ADLs independently General On track(2023 9:49 AM CDT) Dianne Corona RN Note: 12/17/23: Patient stated she is independent with ASL's. Establish Plan for Symptom Monitoring-CHF General On track(2023 11:36 AM SODIUM METHYLATE OPERATOR) Dianne Corona RN Note: Patient will [...] Symptom Monitoring-COPD General On track(2023 11:36 AM SODIUM METHYLATE OPERATOR) Dianne Corona RN Note: Patient will [...] Symptom Monitoring-DM General On track(2023 4:33 PM SODIUM METHYLATE OPERATOR) Dianne Corona, RN Note: Patient will [...] Symptom Monitoring-HTN General On track(2023 4:33 PM SODIUM METHYLATE OPERATOR) Dianne Corona, DALE Note: Patient will monitor B/P several times per week , record readings and report to physician or CC if B/P consistently >130/80 Take your medications as prescribed. Follow up with your provider as scheduled. Take your blood pressure at least several times a week if able. documented as of this encounter Visit Diagnoses Diagnosis Sleep trouble- Primary Sleep disturbance, unspecified documented in this encounter Additional Health Concerns Assessment Noted Time PHQ-9 Depression Total Score: 2 11/26/19 22 3:14 PM CDT documented as of this encounter Care Teams Senior Sales Associate Relationship Specialty Start Date End Date Sanjeev Webster DO [address] [place] [id number] PCP - General FAMILY PRACTICE 09/25/20 Dianne Johnson, RN [address] [place] [address] Social Service Liaison (Ambulatory) REGISTERED NURSE 08/14/20 documented as of this encounter
--- OUTSIDE RECORDS SUMMARY | 2024-03-15 01:03 | XMS_ITS | Encounter Summary ---
Author Organization [facility] Address [facility] [place] [address] [place] [address] Care Team Providers Care Box Coverer Hand Name Role Phone Dianne Johnson RN Unavailable [phone] Sanjeev Webster DO Primary Care Provider + Reason for Referral * Imaging (Routine) - Closed Specialty Diagnoses / Procedures Referred By Ian malagon Referred To Contact RADIOLOGY Diagnoses RUQ pain Abnormal CT of the abdomen Procedures US ABD LIMITED US ABD LIMITED Sanjeev Webster DO [address] [place] [address] Phone: tel: fax: [address] [address] Phone: tel: fax: Referral ID Status Reason Start Date Expiration Date Visits Re quested Visits Authorized [id number] Closed 11/15/2021 11/15/2022 1 1 Reason for Visit * Reason Comments TCM Diverticulitis, pneu monia, anxiety, stomach infection. Patient needs refills alprazolam Encounter Details Date Type Department Care Team (Late st Contact Info) Description 11/15/2021 10:40 AM CDT Office Visit [facility] [address] [place] [address] Sanjeev Webster, DO [address] [place] [address] TCM (Diverticulitis, pneumonia, anxiety, stomach infection. Patient needs refills alprazolam ) Social History Tobacco Use Types Packs/Day [...] Sign Reading Time Taken Comments Blood Pressure 112/74 11/15/2021 11:04 AM CDT Pulse 84 11/15/2021 11:04 AM CDT Temperature 36.6 ??C (97.8 ??F) 11/15/2021 11:04 AM C DT Respiratory Rate - - Oxygen Saturation - - Inhaled Oxygen Concentration - - Weight 81.2 kg (179 lb) 11/15/2021 11:04 AM CDT Height 165.1 cm (5' 5 ) 11/15/2021 11:04 AM CDT Body Mass Index 29.79 11/15/2021 11:04 AM CDT documented in this encounter Functional [...] Progress Notes * Sanjeev Webster, DO - 11/15/2021 10:40 AM CDT Images from the original note were not included. GENERAL OFFICE VISIT Encounter Date: 11/15/2021 Chief Complaint: 76-year-old female presents for TCM (Diverticulitis, pneumonia, anxiety, stomach infection. Patientneeds refills alprazolam ) History of Present Illness: Transitional Care Note: Pt was admitted on: 10/22/21 Pt was discharged on: 11/12/21 Admit Diagnosis: Weakness Discharge Diagnosis: physical deconditioning Initial Nursing contact: See telephone encounter on: 11/13/21 Discharge note from Eb Robert PA-C was reviewed Per their summary: HOSPITAL COURSE: ?? Acute on chronic heart failure??combined??ejection fraction: Resolving Increased shortness of breath with BLE edema POA pBNP 14,562 CXR 11/01: Small bilateral pleural effusions. 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 ??Appreciate recs Transition to p.o. diuretics at DC on 11/05 ?? NSVT: Stable 10/28 patient had 9 beat run of Vtach, asymptomatic F/u EKG, electrolytes C/w BB telemetry ?? Acute diverticulitis: resolved F/u CT abd/pelvis revealed acute diverticulitis Completed 6 days of cefoxitin IV ?? Hypotension: Resolved Suspect over diuresis and poor oral intake following discharge as contributing factors. ?? Patient status post 2 L normal saline given in the emergency room. ?? Monitor VS and pulse ox Fall precautions 10/25 resume lasix and BB tomorrow AM per cardiology if BP stable 10/26 remains hypotensive today; lasix resumed, then held per cardiology; BB on hold 10/31 improving BP, stable Resolved ?? NSTEMI: Stable Cardiology consulted Start ASA 81 mg per cardiology Telemetry Stress test:??LVEF 51%,??no ischemia? Acute on chronic renal??failure: Resolved Initially suspect seconday to hypotension, possible diuresis and reduced oral intake. ? Possible??CAP: Ruled out Patient afebrile no leukocytosis?? Pulm consulted Sputum culture: normal petty Antibiotics discontinued per pulmonology ?? Acute hypoxic respiratory failure: Resolved Secondary to the above patient continues to be maintained on 2 L nasal cannula 1 L while sleeping?? Patient also found to have respiratory acidosis?? Tolerating RA at rest Consider home O2 study at DC from swing bed ?? A. fib currently rate controlled??;??history of mechanical valve Sroke risk reduction with Coumadin?? Continue BB INR goal 2.5-3.5 for mechanical valve, pharmacy to dose. ?? Hyperlipidemia Continue statin ?? Hyperthyroidism?? Continue methimazole follow-up PCP Consider endocrinology referral ?? GERD Continue PPI ?? Anemia No signs of active bleeding Monitor CBC ?? Right MCA aneurysm Noted on CTA Also [...] Close outpatient follow up for further imaging? The patient was educated on OLIVE (acute kidney injury) (CMS/[facility]) and other additional medical condition(s). All questions were answered and the patient voices understanding. Radha Huynh is stable and ready for discharge Since Discharge: Radha has been doing better. Pt had a fall while in office today. No LOC. No head trauma. Pt has skin tears on right arm. Pt has some mild pain in buttocks but is able to sit on her buttocks. No remaining abdominal pain following discharge, including in RUQ. Pt is overall feeling better prior to discharge. ROS: Review of Systems Constitutional: Positive for malaise/fatigue. Negative for fever. Respiratory: Negative for shortness of breath. Cardiovascular: Negative for chest pain. Gastrointestinal: Negative for abdominal pain. Genitourinary: Negative for dysuria. Musculoskeletal: See HPI Medications: Current Outpatient Medications: ??? acetaminophen (TYLENOL) 500 MG tablet, Take 500 mg by mouth daily as needed., Disp: , Rfl: ??? albuterol sulfate HFA 108 (90 Base) MCG/ACT inhaler, Inhale 2 puffs into the lungs every 6 (six) hours as needed for Wheezing., Disp: 18 g, Rfl: 1 ??? ALPRAZolam (XANAX) 0.25 MG tablet, Take 1 tablet (0.25 mg total) by mouth 2 (two) times daily as needed for Anxiety., Disp: 30 tablet, Rfl: 0 ??? Cholecalciferol [...] Disp: 30 tablet, Rfl: 3 ??? methIMAzole 5 MG tablet, Take 1 tablet (5 mg total) by mouth daily., Disp: 30 tablet, Rfl: 11 ??? metoprolol tartrate (LOPRESSOR) 25 MG tablet, [...] Disp: 30 tablet, Rfl: 2 ??? rosuvastatin 5 MG tablet, Take 1 tablet (5 mg total) by mouth nightly at bedtime., Disp: 30 tablet, Rfl: 2 ??? VENLAFAXINE XR 150 MG 24 hr capsule, Take 1 capsule by mouth once daily (Patient taking differently: Take 150 mg by mouth daily.), Disp: 90 capsule, Rfl: 0 ??? warfarin (COUMADIN) 3 MG tablet, Take 1 tablet (3 mg total) by mouth daily., Disp: 30 tablet, Rfl: 3 Current Outpatient Medications on File Prior to [...] 2 (two) times daily asneeded for Anxiety. ??? Cholecalciferol (VITAMIN D3) 25 MCG (1000 [...] further refills until seen in office. ??? lidocaine 5 % Apply pain patch to affected area. Change after 12 hours. ??? lisinopril (PRINIVIL) 2.5 MG tablet Take 1 tablet (2.5 mg total) by mouth daily. ??? methIMAzole 5 MG tablet Take 1 tablet (5 mg total) by mouth daily. ??? metoprolol tartrate (LOPRESSOR) 25 MG tablet Take 0.5 tablets (12.5 mg total) by mouth 2 (two) times daily. ??? omeprazole (PRILOSEC) 20 MG capsule Take 1 capsule by mouth once daily ??? potassium chloride CR (K-TAB) 10 MEQ Tab CR tablet Take 1 tablet (10 mEq total) by mouth daily. ??? rosuvastatin 5 MG tablet Take 1 tablet (5 mg total) by mouth nightly at bedtime. ??? VENLAFAXINE XR 150 MG 24 hr capsule Take 1 capsule by mouth once daily (Patient taking differently: Take 150 mg by mouth daily.) ??? warfarin (COUMADIN) 3 MG tablet Take 1 tablet (3 mg total) by mouth daily. No current [...] Chronic anticoagulation ??? Coronary artery disease involving tetlin coronary artery of tetlin heart without angina pectoris ??? Diabetes mellitus [...] (acute kidney injury) (CMS/HCC) ??? Physical deconditioning Past Medical History: Diagnosis Date ??? Aneurysm [...] status: Tobacco Use ??? Smoking status: Never Smoker [...] ??? Father ??? Mother Objective: Filed Vitals: 11/15/21 1104 BP: 112/74 Pulse: 84 Temp: 97.8 ??F (36.6 ??C) TempSrc: Skin Weight: 81.2 kg (179 lb) Height: 5' 5 (1.651 m) Physical Exam Vitals and nursing note reviewed. Constitutional: Appearance: She is well-developed. HENT: Head: Normocephalic and atraumatic. Right Ear: Tympanic membrane, ear canal and external ear normal. Left Ear: Tympanic membrane, ear canal and external ear normal. Eyes: Conjunctiva/sclera: Conjunctivae normal. Cardiovascular: Rate and Rhythm: Normal rate. Rhythm irregular. Heart sounds: Normal heart sounds. No murmur heard. No friction rub. No gallop. Pulmonary: Effort: Pulmonary effort is normal. Breath sounds: Normal breath sounds. Abdominal: Palpations: Abdomen is soft. Tenderness: There is no abdominal tenderness. Musculoskeletal: Cervical back: Neck supple. Skin: General: Skin is warm and dry. Comments: Skin tears noted on right arm Neurological: General: No focal deficit present. Mental Status: She is alert. Mental status is at baseline. Assessment & Plan: Radha was seen today for tcm. Diagnoses and all orders for this visit: Chronic anticoagulation - PROTIME/INR, VENOUS; Future - COMPREHENSIVE METABOLIC PANEL; Future - CBC W/DIFF AUTOMATED; Future - VENIPUNC ARM DRAW - CBC W/DIFF AUTOMATED - COMPREHENSIVE METABOLIC PANEL - PROTIME/INR, VENOUS OLIVE (acute kidney injury) ([facility]/HCC) - PROTIME/INR, VENOUS; Future - COMPREHENSIVE METABOLIC PANEL; Future - CBC W/DIFF AUTOMATED; Future - VENIPUNC ARM DRAW - CBC W/DIFF AUTOMATED - COMPREHENSIVE METABOLIC PANEL - PROTIME/INR, VENOUS RUQ pain - Cancel: US ABD LIMITED; Future - US ABD LIMITED; Future - US ABD LIMITED Abnormal CT of the abdomen - Cancel: US ABD LIMITED; Future - US ABD LIMITED; Future - US ABD LIMITED Calculus of gallbladder without cholecystitis without obstruction - HYDROcodone-acetaminophen (NORCO) 10-325 MG tablet; Take 1 tablet by mouth every 6 (six) hours asneeded for Pain. Indications: Chronic Pain Do not take with alprazolam. No further refills until seen in office. Hyperthyroidism - THYROID STIM HORMONE, TSH; Future - THYROXINE, FREE (FT4); Future - THYROXINE, FREE (FT4) - THYROID STIM HORMONE, TSH Anxiety - ALPRAZolam (XANAX) 0.25 MG tablet; Take 1 tablet (0.25 mg total) by mouth 2 (two) times daily as needed for Anxiety. Saccular aneurysm Acute on chronic heart failure with preserved ejection fraction ([facility]/HCC) NSTEMI (non-ST elevated myocardial infarction) ([facility]) Discussion & Summary: 1. Medications/DME - Continue current medications. See orders. Will leave on methimazole at current dose as is improving and amiodarone has been stopped. Wounds cleaned on right arm. Will monitor. 2. Lab/Diagnostics - See orders. 3. Education - Current treatment discussed and patient education given as appropriate. 4. Referrals - See orders 5. RTC - 2 week(s) I spent 50 minutes today reviewing the patient's medical record, obtaining history, performing an exam, ordering medications, tests, and/or procedures, documenting in the medical record, counseling and educating the patient/family/caregiver, reviewing and communicating test results and coordinationof care. Sanjeev Webster DO documented in this encounter Plan of Treatment Upcoming Encounters Date Type Department Care Team (Late st Contact Info) Description 04/14/2024 2:00 PM MIXED ANIMAL VETERINARIAN Office Visit [facility] Multispecialty [facility] - [address], [address] [place] [id number] Julio Pulido MD [address] [place] [address] Scheduled Orders Name Type Priority Associated Diagnoses Orde r Schedule US ABD LIMITED Ultrasound Routine RUQ pain Abnormal CT of the abdomen Expected: 11/15/2021, Expires: 11/15/2022 documented as of this encounter Goals Goal Patient Goal Type Associated Problems Recent Progress Patient-Stated? Author Health - patient able to perform ADLs independently General On track(2023 9:49 AM CDT) Dianne Corona RN Note: 12/17/23: Patient stated she is independent with ASL's. Establish Plan for Symptom Monitoring-CHF General On track(2023 11:36 AM MIXED ANIMAL VETERINARIAN) Dianne Corona RN Note: Patient will recognize [...] Symptom Monitoring-COPD General On track(2023 11:36 AM MIXED ANIMAL VETERINARIAN) Dianne Corona RN Note: Patient will recognize [...] Symptom Monitoring-DM General On track(2023 4:33 PM MIXED ANIMAL VETERINARIAN) Dianne Corona RN Note: Patient will manage [...] Symptom Monitoring-HTN General On track(2023 4:33 PM MIXED ANIMAL VETERINARIAN) Dianne Corona RN Note: Patient will monitor [...] Associated Diagnosis Comments PROTHROMBIN TIME, VENOUS Routine 11/15/2021 2:50 PM CDT Chronic anticoagulation OLIVE (acute kidney injury) COMPREHENSIVE METABOLIC PANEL Routine 11/15/2021 2:50 PM CDT Chronic anticoagulation OLIVE (acute kidney injury) CBC W/DIFF AUTOMATED Routine 11/15/2021 2:50 PM CDT Chronic anticoagulation OLIVE (acute kidney injury) THYROXINE, FREE (FT4) Routine 11/15/2021 2:50 PM CDT Hyperthyroidism THYROID STIM HORMONE TSH Routine 11/15/2021 2:50 PM CDT Hyperthyroidism COLLECTION VENOUS BLOOD VENIPUNCTURE Routine 11/15/2021 11:28 AM CDT Chronic anticoagulation OLIVE (acute kidney injury) documented in this encounter Results * (ABNORMAL) THYROXINE, FREE (FT4) (11/15/2021 2:50 PM CDT) FREE T4 4.72(H) 0.76 - 1.46 NG/DL 11/15/2021 8:48 PM CDT -[facility] 11/15/2021 2:50 PM CDT us Sanjeev Webster LABORATORY Final Re sult Performing Organization Address [facility]/ZIP Co de Phone Number [facility] [address] [place] [address], [place] [phone] * (ABNORMAL) THYROID STIM HORMONE, TSH (11/15/2021 2:50 PM CDT) TSH <0.007(L) 0.358 - 3.740 uIU/ML 11/16/2021 1:26 PM CDT [facility] 11/15/2021 2:50 PM CDT Sanjeev Webster LABORATORY Final Re sult Performing Organization Address [facility] Co de Phone Number [facility] [address] [place] [address], [place] [phone] * (ABNORMAL) CBC W/DIFF AUTOMATED (11/15/2021 2:50 PM CDT) WBC 4.7 4.0 - 10.8 x10'3/uL 11/15/2021 8:14 PM CDT [facility] RBC 2.59(L) 4.10 - 5.40 x10'6/uL 11/15/2021 8:14 PM CDT [facility] HGB 8.7(L) 12.0 - 16.0 G/DL 11/15/2021 8:14 PM CDT [facility] HCT 26.9(L) 36.0 - 47.0 % 11/15/2021 8:14 PM CDT [facility] MCV 103.9(H) 78.0 - 100.0 FL 11/15/2021 8:14 PM CDT [facility] MCH 33.6(H) 27.0 - 31.0 PG 11/15/2021 8:14 PM CDT [facility] MCHC 32.3(L) 33.0 - 36.0 G/DL 11/15/2021 8:14 PM CDT [facility] RDW 13.8 11.5 - 14.5 % 11/15/2021 8:14 PM CDT [facility] PLT 201 150 - 350 x10'3/uL 11/15/2021 8:14 PM CDT [facility] MPV 13.1(H) 7.4 - 10.4 FL 11/15/2021 8:14 PM CDT [facility] DIFFERENTIAL TYPE AUTOMATED DIFFERENTIAL 11/15/2021 8:15 PM CDT [facility] NEUTROPHILS % 63.7 % 11/15/2021 8:15 PM CDT [facility] LYMPHOCYTES % 16.1 % 11/15/2021 8:15 PM CDT [facility] MONOCYTES % 16.9 % 11/15/2021 8:15 PM CDT [facility] EOSINOPHIL[facility] % 2.5 % 11/15/2021 8:15 PM CDT [facility] BASOPHILS % 0.8 % 11/15/2021 8:15 PM CDT [facility] IMMATURE GRANS % 0.0 % 11/15/2021 8:15 PM CDT [facility] ABS. NEUTROPHILS 3.00 1.60 - 8.30 x10'3/uL 11/15/2021 8:15 PM CD[facility] ABS. LYMPHOCYTES 0.76(L) 0.80 - 4.70 x10'3/uL 11/15/2021 8:15 PM CDT [facility] ABS. MONOCYTES 0.80 0.00 - 1.50 x10'3/uL 11/15/2021 8:15 PM CDT [facility] ABS. EOSINOPHILS 0.12 0.00 - 0.40 x10'3/uL 11/15/2021 8:15 PM CDT -[facility] ABS. BASOPHILS 0.04 0.00 - 0.20 x10'3/uL 11/15/2021 8:15 PM CDT [facility] ABS. IMMATURE GRANULOCYTES 0.00 0.00 - 0.03 x10'3/uL 11/15/2021 8:15 PM CDT [facility] 11/15/2021 2:50 PM CDT us Sanjeev Webster DO LABORATORY Final Re sult [facility] [place] [address] [place] [address], [place] [phone] * (ABNORMAL) COMPREHENSIVE METABOLIC PANEL (11/15/2021 2:50 PM CDT) Pathologist [facility] SODIUM S/P/B 141 136 - 145 MMOL/L 11/15/2021 8:48 PM CDT [facility] POTASSIUM S/P/B 4.6 3.5 - 5.1 MMOL/L 11/15/2021 8:48 PM CDT [facility] CHLORIDE S/P/B 104 98 - 107 MMOL/L 11/15/2021 8:48 PM CDT [facility] CO2 30.7 21 - 32 MMOL/L 11/15/2021 8:48 PM CDT [facility] GLUCOSE 116(H) 70 - 99 MG/DL 11/15/2021 8:48 PM CDT [facility] BUN 25(H) 7 - 18 MG/DL 11/15/2021 8:48 PM CDT [facility] CREATININE S/P/B 1.26(H) 0.55 - 1.02 MG/DL 11/15/2021 8:48 PM CDT [facility] CALCIUM S/P/B 10.2 8.4 - 10.5 MG/DL 11/15/2021 8:48 PM T [facility] BILIRUBIN TOTAL S/P/B 0.6 0.2 - 1.0 MG/DL 11/15/2021 8:48 PM [facility] ALKALINE PHOSPHATASE S/P/B 93 55 - 142 U/L 11/15/2021 8:48 PM T [facility] AST 24 15 - 37 U/L 11/15/2021 8:[address] [facility] [place] ALT 19 14 - 59 U/L 11/15/2021 8:48 PM [facility] TOTAL PROTEIN S/P/B 6.1(L) 6.4 - 8.2 G/DL 11/15/2021 8:48 PM [facility] ALBUMIN S/P/B 3.1(L) 3.4 - 5.0 G/DL 11/15/2021 8:48 PM T [facility] ANION GAP 6.3 5 - 15 MMOL/L 11/15/2021 8:48 PM [facility] Comment:REFERENCE RANGE NOT ESTABLISHED OSMOLALITY (CALC) 297 MOSM/KG 022 8:48 PM [facility] Comment:REFERENCE RANGE NOT ESTABLISHED GFR ESTIMATE 44(L) >90 ML/MIN/1. 73 M2 11/15/2021 8:48 PM T [facility] GFR NOTES GFR REFERENCE S: 11/15/2021 8:48 PM T [facility] Comment: THE ESTIMATED GFR IS CALCULATED [...] ml/min/1.73 m2 G5,KIDNEY FAILURE: <15 ml/min/1.73 m2 11/15/2021 2:50 PM CDT Sanjeev Webster DO LABORATORY Final Re sult Performing Organization Address [facility] Co de Phone Number [facility], [place] [address] [place] [address], [place] [phone] * (ABNORMAL) PROTIME/INR, VENOUS (11/15/2021 2:50 PM CDT) PROTIME 16.0(H) 9.3 - 11.6 SEC 11/15/2021 8:40 PM CDT [facility] INR 1.6(H) 0.9 - 1.1 11/15/2021 8:40 PM CDT [facility] Comment: TREATMENT OR PROPHYLAXIS AGAINST: ?? THERAPEUTIC RANGE (INR): ?VENOUS THROMBOSIS ? 2.0-3.0 ?PULMONARY EMBOLUS ? 2.0-3.0 ?? MECHANICAL PROSTHETIC VALVES ? 2.5-3.5 11/15/2021 2:50 PM CDT Sanjeev Webster DO LABORATORY Final Re sult Performing Organization Address [facility] de Phone Number [facility] [place] [address] [place] [address], [place] [phone] documented in this encounter Visit Diagnoses Diagnosis Chronic anticoagulation- Primary Encounter for long-term (current) use of anticoagulants OLIVE (acute kidney injury) (CMS/HCC) Acute kidney failure, unspecified RUQ pain Abdominal pain, right upper quadrant Abnormal CT of the abdomen Nonspecific (abnormal) findings on radiological and other examination of abdominal area, including retroperitoneum Calculus of gallbladder without cholecystitis without obstruction Calculus of gallbladder without mention of cholecystitis or obstruction Hyperthyroidism Thyrotoxicosis without mention of goiter or other cause, without mention of thyrotoxic crisis or storm Anxiety Anxiety state, unspecified 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[facility]/HCC) Cerebral aneurysm, nonruptured Acute on chronic heart failure with preserved ejection fraction ([facility]) NSTEMI (non-ST elevated myocardial infarction) ([facility]) Acute myocardial infarction, subendocardial infarction, episode of care unspecified Fall, initial encounter documented in this encounter Additional Health Concerns Assessment Noted Time PHQ-9 Depression Total Score: 0 05/25/19 22 9:23 AM CDT documented as of this encounter Care Teams Box Coverer Hand Relationship Specialty Start Date End Date Sanjeev Webster DO [address] [place] [id number] PCP - General FAMILY PRACTICE 09/25/20 Dianne Johnson, RN [address] [place], [place] [id number] Dirt Shoveler (Ambulatory) REGISTERED NURSE 08/14/20 documented as of this encounter
--- OUTSIDE RECORDS SUMMARY | 2024-03-15 01:03 | XMS_ITS | Encounter Summary ---
Author Organization [facility] Address [facility] [facility] [place] [address] [place] [address] Care Team Providers Care Insurance Investigator Name Role Phone Casey Johnson RN Unavailable [phone] Sanjeev Webster DO Primary Care Provider + Reason for Visit * Reason Onset Date Comments Care Management 11/21/2021 TCM week # 2 Encounter Details Date Type Department Care Team (Late st Contact Info) Description 11/21/2021 Patient Outreach [facility] Family & Internal Medicine [address] [address] Casey Johnson, RN [address] [place] [address] Care Management (TCM week # 2) Social History Tobacco Use Types Packs/Day Years [...] Progress Notes * Casey Johnson RN - 11/21/2021 11:47 AM CDT Chronic Care Management: 11/21/21: Left message for patient to return phone call. 11/21/21: Contacted patient. See below for details. Patient Status: Contacted patient and stated she is still staying with her friend due to weakness. Stated the plan is for her to return home either tomorrow or Thursday. [facility] has not started since she is not at home.Patient stated right arm still hurts but she is keeping gauze on it and wrapping it with plastic wrap when she is taking a shower. Stated it bled a little bit but not now. Bottom hurts when she is sitting, standing or laying down. Stated it's hard to sleep at night but she plans on following up with on Thursday to follow up on her arm and buttocks. B/P on 11/15/21 at office was: 112/74 which is stable. Her nrqigbmo-tt-uop fills her pill planners so she is taking her medications correctly. Patient confirmed she is taking [id number] mg daily and Warfarin was increased to 4 mg on Thursday and Thursday and 3 mg -. Patient is aware CC will reach out to [facility] with update. A1C: 6.1 % on 08/29/21. Plan of Care: after school coordinator will continue to follow up [...] this time. 11/21/21: Stable at this time. ??? Establish Plan [...] this time. A1C on 08/29/21: 6.1 %. ??? Establish Plan for Symptom Monitoring-HTN On [...] good at appointment yesterday. CC reviewedreading in [employer] from yesterday. B/P: 132/70 P: 65. 07/29/21: Patient is not taking B/P at this time. Stated her yogpcmiq-og-pjy sets up her pill senior media planner and she is taking medications as directed. Reports alarm will go off at 8:00 am and 8:00 PM reminding her to take her medications. 08/12/21: Patient taking medication as directed. 09/18/21: Taking medication as directed. B/P on 09/12: 120/56. ??? Health - patient able to perform [...] dishes her back hurts. Reports Tylenol or [place]wood helps a little. Message sent to Bebe BHATTI) to find out the status on engineering production worker. 10/23/20: Independent with ADL's. 12/10/20: Patient having issues sweeping etc since right hand fx. Stated she will contact [employer] out if another engineering production worker will be helping her. Stated she prefers to wait until after she comes back from visiting her son in [place]. 12/27/20: Patient stated she is having issues getting a engineering production worker due to [employer] being short staffed. Stated she plans on calling them back today to find out status. Stated her pastors daughter put in application to help her about 1 1/2 months ago but she hasn't received a call. Stated she will call them today. 01/11/21: warehouse production worker will start on Thursday and help [...] Patient stated she is getting a new engineering production worker next week to help clean her home. Denies any recent falls. 04/10/21: Patient's bwfkoarb-vt-hdf is filling mediplanner for the patient. 04/29/21: Patient stated the engineering production worker did not show up again. Gave patient number to [employer]AD[employer]. She wrote it down and will call for assistance. 05/24/21: Choreworker has not been coming and patient unsure why. Patient has number to call to check on status, but just hasn't done that yet. 07/29/21: Afkofymd-ur-tat fills pill senior media planner and has an alarm on it to take morning and evening. Shecooks her own meals and currently doesn't have a engineering production worker. Stated she doesn't need one right now. 08/12/21: Patient independent with ADL's. Pbbfzldk-px-vhf fixes her pill senior media planner and will be doing this today. Upcoming Visit Appointments: Future Appointments Date Time Provider Department Center 11/25/2021 3:00 PM Sanjeev Webster DO [facility]GF[facility] 12/26/2021 8:00 AM MD BYRON Choi [facility] 02/17/2022 11:00 AM ALEX INFUSION RM 6 [employer] ALEX Quality care gaps: Health Maintenance [...] Chronic anticoagulation ??? Coronary artery disease involving blackfeet coronary artery of blackfeet heart without angina pectoris ??? Diabetes mellitus [...] Care Management ??? OLIVE (acute kidney injury) ([facility]) ??? Physical deconditioning Medications: Current Outpatient Medications Medication Sig Dispense [...] Time spent with patient (minutes): 18 (Comment: Talked to patient and [facility]) Time spent performing chart review (minutes): 8 Total time (minutes): 26 CASEY JOHNSON RN I reviewed the patient's status and education provided by CASEY JOHNSON RN. I agree with the findings and recommendations made. Cosigned by Sanjeev Webster DO at 12/01/2021 11:30 AM CDT documented in this encounter Plan of Treatment Upcoming Encounters Date Type Department Care Team (Late st Contact Info) Description 04/14/2024 2:00 PM SUPERVISOR METAL PLACING Office Visit [facility] Multispecialty Care - [facility] [address] [facility], [address] [place] [id number] Julio Pulido MD [address] [place] [address] documented as of this encounter Goals Goal Patient Goal Type Associated Problems Recent Progress Patient-Stated? Author Health - patient able to perform ADLs independently General On track(2023 9:49 AM CDT) Casey Corona RN Note: 12/17/23: Patient stated she is independent with ASL's. Establish Plan for Symptom Monitoring-CHF General On track(2023 11:36 AM SUPERVISOR METAL PLACING) Casey Corona RN Note: Patient will recognize [...] Monitoring-COPD General On track(2023 11:36 AM SUPERVISOR METAL PLACING) Casey Corona RN Note: Patient will recognize [...] Monitoring-DM General On track(2023 4:33 PM SUPERVISOR METAL PLACING) Casey Corona RN Note: Patient will manage [...] Monitoring-HTN General On track(2023 4:33 PM SUPERVISOR METAL PLACING) No Casey Johnson RN Note: Patient will [...] Chronic obstructive pulmonary disease, unspecified COPD type ([facility])- Primary Type 2 diabetes mellitus with diabetic peripheral angiopathy without gangrene, without long-term current use of insulin ([facility]) Diastolic heart failure ([facility]) Unspecified diastolic heart failure documented in this encounter Additional Health Concerns Assessment Noted Time PHQ-9 Depression Total Score: 0 05/25/19 22 9:23 AM CDT documented as of this encounter Care Teams Insurance Investigator Relationship Specialty Start Date End Date Sanjeev Webster DO [address] [place] [id number] PCP - General FAMILY PRACTICE 09/25/20 Casey Johnson RN [address] [place] [address] Railway Signal Technician (Ambulatory) REGISTERED NURSE 08/14/20 documented as of this encounter
--- OUTSIDE RECORDS SUMMARY | 2024-03-15 01:03 | XMS_ITS | Encounter Summary ---
Author Organization [facility] Address [facility] [facility] [place] [address] [place] [address] Care Team Providers Care Multimedia Engineer Name Role Phone Casey Johnson RN Unavailable [phone] Sanjeev Webster DO Primary Care Provider + Reason for Visit * Reason Onset Date Comments Care Management 12/18/2021 Encounter Details Date Type Department Care Team (Late st Contact Info) Description 12/18/2021 Patient Outreach [facility] Family & Internal Medicine [address] [address] Casey Johnson, RN [address] [place] [address] Care Management Social History [...] Progress Notes * Casey Johnson RN - 12/18/2021 3:47 PM CDT Images from the original note were not included. Chronic Care Management: 12/18/21: Contacted Fátima with [facility] medical records. Stated she has lab results from last week and will fax to CC. Stated to contact [facility] for US at [phone]. 12/18/21: Contacted [facility] at [phone] and spoke to Carrie requesting US report. She will fax it over. 12/18/21: Received fax from Fátima stating labs are pending, check back later. 12/18/21: Contacted Fátima back. She stated patient's lab work from yesterday is pending and she can't tell CC at this time what labs are pending. Stated patient did have lab done on 12/13/21 and she will fax lab results to CC. She does not have a PT/INR. 12/18/21: Received lab report from Fátima. Copy faxed to . 12/18/21: Received fax from [employer]. Copy of report faxed to at [phone]. 12/18/21: Left message for patient to return phone call. 12/18/21: Contacted 's office and left a message with Fátima to have someone return phone call regarding referral placed on 11/25/21 by . 12/18/21: Received a detailed message from Taina at 's office. Stated she left a message for patient to call and set up an appointment. Patient concerns or urgent matters that need addressed: Patient stated she did not have PT/INR done at [facility]. Reminded patient of upcoming appointment with . She is wanting to know if she should come in tomorrow and have it done at 's office or wait until 12/23/21. She was due to get it done the week of 12/02/21. Denies any issues with bleeding at this time. Stated to leave a detailed message if she doesn't answer the phone. Message sent to 's nursing team. 12/19/21: Sent message to Scarlett at 's office. Stated patient can get INR either today or tomorrow. 12/19/21: Contacted patient and stated she can be at the office in about an hour if they can do theINR at that time. Informed patient that CC will reach out to 's office and give her a time to come in. 12/19/21: Spoke to Guille at 's office and she added patient to schedule to get lab work done in an hour. : Contacted patient and she is aware to get INR at 's office in an hour. Informed patient that office left a message for her to call them to set up an appointment. Patient kindly stated she is tired of all these appointments and thank goodness she has a CC helping her keep these appointments straight. Stated she wants to see her sister in [place]. Stated she hasn't seen her in 3 years. The problem is every time she wants to go visit with her she has an appointment. Reminded patient of appointment on 12/23/21 with and 12/26/21 with Neuro. Stated on Thursday she will further discuss with why she needs to see an Endo. Patient thanked CC for calling her and keeping her updated. 12/19/21: Contacted Fátima at [facility] medical records. Stated lab results in from 12/16/21 and she will fax to . 12/19/21: Received copy of lab results from [facility]. Faxed copy to 's office. Patient Status: Patient stated she received letter from regarding appointments she needs to make. Stated she still needs to make an appointment with eye doctor but hasn't at this time. Informed patient that left a message for someone in 's office (Endo) to call regarding referral placed on 11/25/21. Patient stated she doesn't know why she is being referred to Endo and doesn't know if she will go to appointment. Informed patient the reason why made referral. Plan of Care: milieu coordinator will continue to follow up by phone, provide resources when needed, educate on disease management, and assess chronic conditions. Patient Goals: Goals Addressed None Upcoming Visit Appointments: Future Appointments Date Time Provider Department Center 12/23/2021 10:40 AM Sanjeev Webster DO [facility] 12/26/2021 8:00 AM MD BYRON Choi [facility] 02/17/2022 11:00 AM ALEX INFUSION RM 6 [employer] [facility] ALEX Quality care gaps: Health Maintenance Topic [...] Chronic anticoagulation ??? Coronary artery disease involving wilton coronary artery of wilton heart without angina pectoris ??? Dyspnea on [...] No current facility-administered medications for this visit. CASEY JOHNSON RN I reviewed the patient's status and education provided by CASEY JOHNSON RN. I agree with the findings and recommendations made. Cosigned by Sanjeev Webster DO at 12/23/2021 12:54 PM CDT documented in this encounter Plan of Treatment Upcoming Encounters Date Type Department Care Team (Late st Contact Info) Description 04/14/2024 2:00 PM LEGAL OFFICER Office Visit [facility] Multispecialty Care - [facility] [address] [facility], [address] [place] [address] Julio Pulido MD [address] [place] [address] documented as of this encounter Goals Goal Patient Goal Type Associated Problems Recent Progress Patient-Stated? Author Health - patient able to perform ADLs independently General On track(2023 9:49 AM CDT) Casey Corona RN Note: 12/17/23: Patient stated she is independent with ASL's. Establish Plan for Symptom Monitoring-CHF General On track(2023 11:36 AM LEGAL OFFICER) Casey Corona RN Note: Patient will [...] Symptom Monitoring-COPD General On track(2023 11:36 AM LEGAL OFFICER) Casey Corona RN Note: Patient will [...] Symptom Monitoring-DM General On track(2023 4:33 PM LEGAL OFFICER) Casey Corona, RN Note: Patient will [...] Symptom Monitoring-HTN General On track(2023 4:33 PM LEGAL OFFICER) Casey Corona, RN Note: Patient will monitor [...] disease, unspecified COPD type ([facility])- Primary Type 2 diabetes mellitus with diabetic peripheral angiopathy without gangrene, without long-term current use of insulin ([facility]) Chronic heart failure with preserved ejection fraction (HFpEF) ([facility]) documented in this encounter Additional Health Concerns Assessment Noted Time PHQ-9 Depression Total Score: 2 11/26/19 22 3:14 PM CDT documented as of this encounter Care Teams Multimedia Engineer Relationship Specialty Start Date End Date Sanjeev Webster DO [address] [place] [address] PCP - General FAMILY PRACTICE 09/25/20 Casey Johnson, RN [address] [place] [address] Dowel Maker (Ambulatory) REGISTERED NURSE 08/14/20 documented as of this encounter
--- OUTSIDE RECORDS SUMMARY | 2024-03-15 01:05 | XMS_ITS | Encounter Summary ---
Author Organization [facility] Address Pending sale to [facility] [place] [address] [place] [address] Care Team Providers Care Ware Server Name Role Phone Dianne Johnson RN Unavailable [phone] Suleman Webster DO Primary Care Provider + Reason for Referral * (Routine) - Canceled Specialty Diagnoses / Procedures Referred By Contac t Referred To Contact Procedures OT eval and treat [facility] [place] [address] Phone: tel: fax: Referral ID Status Reason Start Date Expiration Date V isits Requested Visits Authorized [id number] Canceled 10/31/2021 10/31/2022 1 1 * Procedure (Routine) - Closed Specialty Diagnoses / Procedures Referred By Contac t Referred To Contact Procedures Stress Test (Chemical) Stress Test (Chemical) Zoey Ricks PRINCIPAL ACCOUNT CLERK-C [facility]. [address] [address] Phone: tel: fax: Referral ID Status Reason Start Date Expiration Date Visits Re quested Visits Authorized [id number] Closed 10/30/2021 10/30/2022 1 1 * Imaging (Routine) - Closed Specialty Diagnoses / Procedures Referred By Contac t Referred To Contact RADIOLOGY Procedures NM PHARM NUC STRESS TEST 1DAY Zoey Ricks NP-C [facility]. [address] [place] [address] Phone: tel: fax: Referral ID Status Reason Start Date Expiration Date Visits Re quested Visits Authorized [id number] Closed 10/30/2021 10/30/2022 1 1 * (Routine) - Closed Specialty Diagnoses / Procedures Referred By Contac t Referred To Contact Procedures OT eval and treat [facility] [place] [address] Phone: tel: fax: Referral ID Status Reason Start Date Expiration Date Visits Re quested Visits Authorized [id number] Closed 10/28/2021 10/28/2022 1 1 * Imaging (Emergency) - Closed Specialty Diagnoses / Procedures Referred By Contac t Referred To Contact RADIOLOGY Procedures CT ABD+PEL WO CON Ashu Deng MD 1 [place] [address] Phone: tel: [phone] fax: Referral ID Status Reason Start Date Expiration Date Visits Re quested Visits Authorized [id number] Closed 10/27/2021 10/27/2022 1 1 * (Emergency) - Canceled Specialty Diagnoses / Procedures Referred By Contac t Referred To Contact Procedures PT eval and treat Ashu Deng MD 1 [place] [address] Phone: tel: [phone] fax: Referral ID Status Reason Start Date Expiration Date V isits Requested Visits Authorized [id number] Canceled 10/26/2021 10/26/2022 1 1 * Imaging (Urgent) - Closed Specialty Diagnoses / Procedures Referred By Contac t Referred To Contact RADIOLOGY Procedures MRI BRAIN WO CON Victor M Padilla MD [address] [place] [address] Phone: tel: fax: Referral ID Status Reason Start Date Expiration Date Visits Re quested Visits Authorized [id number] Closed 10/25/2021 10/25/2022 1 1 * (Emergency) - Canceled Specialty Diagnoses / Procedures Referred By Contac t Referred To Contact Procedures PT eval and treat Ashu Deng MD 1 [place] [address] Phone: tel: [phone] fax: Referral ID Status Reason Start Date Expiration Date V isits Requested Visits Authorized [id number] Canceled 10/25/2021 10/25/2022 1 1 * Imaging (Urgent) - Closed Specialty Diagnoses / Procedures Referred By Contac t Referred To Contact RADIOLOGY Procedures CT CHEST WO CON CT CHEST WO CON Suleman Dueñas MD 3 [place] [address] Phone: tel: fax: Referral ID Status Reason Start Date Expiration Date Visits Re quested Visits Authorized [id number] Closed 10/24/2021 10/24/2022 1 1 * (Routine) - Canceled Specialty Diagnoses / Procedures Referred By Ian malagon Referred To Contact Procedures PT eval and treat Ashu Deng MD 1 [place] [address] Phone: tel: [phone] fax: Referral ID Status Reason Start Date Expiration Date V isits Requested Visits Authorized [id number] Canceled 10/24/2021 10/24/2022 1 1 Reason for Visit * Reason Comments Weakness Pt was Dced from her e yesterday where she was treated for PNA. Arrives here with increased weakness. States she could hardly get herself off the commode. * Auth/Cert Specialty Diagnoses / Procedures Referred By Ian malagon Referred To Contact Diagnoses Dehydration Weakness Hypotension Elevated troponin OLIVE (acute kidney injury) (CMS/HCC) OLIVE (acute kidney injury) ([facility]) Procedures NONE Gunner Torres MD 1 [place] [address] Phone: tel: [phone] fax: Referral ID Status Reason Start Date Expiration Date Visits Re quested Visits Authorized [id number] 1 1 Encounter Details Date Type Department Care Team (Late st Contact Info) Description 10/22/2021 5:53 PM CDT - 11/05/2021 6:07 PM CDT Hospital Encounter [facility] Telemetry [address] [place], [place] [address] Swathi Castellon MD 1 [place], [place] [id number] Gunner Torres MD [address] [place] [address] [phone] (Work) Lora Benjamin MD 1 [place] [address] [phone] (Work) Ashu Deng MD 1 [place] [address] [phone] (Work) Herlinda Ayala DO 1 [place] [address] Poncho Mendiola MD 1 [place] [address] Jayy Jo MD [address] [place] [address] [phone] (Work) Tere Nelson PA-C [address] [place] [address] [phone] (Work) Weakness (Pt was Dced from here yesterday where she was treated for PNA. Arrives here with increased weakness. States she could hardly get herself off the commode. ) Discharge Disposition: Swing Bed Social History Tobacco Use Types Packs/Day Years [...] suspected to have Coronavirus/COVID-19? No / Unsure 11/04/2021 9:27 AM CDT documented as of this encounter Last Filed Vital Signs Vital Sign Reading Time Taken Comments Blood Pressure 117/79 11/05/2021 4:43 PM CDT Pulse 59 11/05/2021 4:43 PM CDT Temperature 36.9 ??C (98.4 ??F) 11/05/2021 4:43 PM CD T Respiratory Rate 18 11/05/2021 12:1 4 PM CDT Oxygen Saturation 92% 11/05/2021 4:43 PM CDT Inhaled Oxygen Concentration - - Weight 85.2 kg (187 lb 13.3 oz) 11/04/2021 4:28 AM CDT Height 162.6 cm (5' 4 ) 10/22/2021 5:50 PM CDT Body Mass Index 32.24 10/22/2021 5:50 PM CDT documented in this encounter Functional Status * Question Answer Date of Assessment Author Status Do you have serious difficulty walking or climbing stairs? Yes 10/22/2021 10:00 PM CDT Tresa Lemons RN Activ e * Question Answer Date of Assessment Author Status Do you have difficulty dressing or bathing? No 10/22/2021 10:00 PM CDT Tresa Lemons RN A ctive Because of a physical, mental, or emotional condition, do you have difficulty doing errands alone such as visiting a doctor's office or shopping? Yes 10/22/2021 10:00 PM CDT Tresa Lemons RN Active * RETIRED Are you deaf [...] difficulty concentrating, remembering, or making decisions? No 10/22/2021 10:00 PM Tresa Wilkinson RN A ctive * Because of a physical, mental, or emotional condition, do you have serious difficulty concentrating, remembering, or making decisions? Answer Entry Date Author Status No 10/22/2021 10:00 PM Tresa Wilkinson RN Active documented in this encounter Discharge Summaries * Tere Nelson PA-C - 11/05/2021 11:04 AM CDT Images from the original note were not included. Hospitalist Discharge Summary Patient ID: Ana Maria Bobo. female. 1945. Admit date: 10/22/2021 5:53 PM Discharge date and time: 11/05/21 Admitting Physician: Gunner Vargas MD Attending Physician: Tere Nelson PA-C Primary Care Physician: Suleman Webster DO Discharge Physician: TERE NELSON PA-C Admission Condition: stable Discharged Condition: Stable Code Status: Full Code Indication for Admission: Chief Complaint Patient presents with ??? Weakness Pt was Dced from here yesterday where she was treated for PNA. Arrives here with increased weakness. States she could hardly get herself off the commode. Readmission/Mortality Score at discharge: Low 0-28, Medium 29-58, High >59 LACE+ Score *This score is based on incomplete data Readmission Score: 83* Male Patient: - Urgent Admission: 15 Discharge Institution: - Length of Stay: 9 Alternative Level of Care Status: 0 ED Visits in Previous 6 Months: 3 Elective Admission in Previous Year: 6 Comorbidity Score (by age & number of urgent admissions): 50 - This score is not calculated because of inadequate data Discharge diagnosis: Principal Problem: OLIVE (acute kidney injury) (CMS/HCC) Resolved Problems: * No resolved hospital problems. * Patient Active Problem List Diagnosis ??? Abnormal stress test ??? Bradycardia ??? Chronic anticoagulation ??? 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 Diabetes mellitus [...] Care Management ??? OLIVE (acute kidney injury) ([facility]/HCC) HOSPITAL COURSE: Acute on chronic heart failure combined ejection fraction: Resolving Increased shortness of breath with BLE edema POA pBNP 14,562 CXR 11/01: Small bilateral pleural effusions. planning assistant I/Os, daily weights Echo 10/16 LVEF 40-45%, mild to moderate pulm HTN Cardiology consulted. Appreciate recs Transition to p.o. diuretics at DC on 11/05 NSVT: Stable 10/28 patient had 9 beat [...] ASA 81 mg per cardiology Telemetry Stress test: LVEF 51%, no ischemia? Acute on chronic renal??failure: Resolved Initially suspect seconday to hypotension, possible diuresis and reduced oral intake. ?? Possible??CAP: Ruled out Patient afebrile no leukocytosis?? Pulm consulted Sputum culture: normal betty Antibiotics discontinued per pulmonology ?? Acute hypoxic respiratory failure: Resolved Secondary to the above patient continues to be maintained on 2 L nasal cannula 1 L while sleeping?? Patient also found to have respiratory acidosis?? Tolerating RA at rest Consider home O2 study at DC from swing bed ?? A. fib currently rate controlled??; history of mechanical valve Sroke risk reduction with [...] elsewhere. Close outpatient follow up for further imaging?? The patient was educated on OLIVE (acute kidney injury) (CMS/HCC) and other additional medical condition(s). All questions were answered and the patient voices understanding. Ana Maria Bobo is stable and ready for discharge Consults: cardiology Significant Diagnostic Studies: Recent Results (from the past 24 hour(s)) POCT glucose Collection Time: 11/04/21 7:39 PM Result Value Ref Range GLUCOSE POC 165 (H) 70 - 99 mg/dL POCT glucose Collection Time: 11/05/21 5:44 AM Result Value Ref Range GLUCOSE POC 87 70 - 99 mg/dL PROTIME/INR, VENOUS Collection Time: 11/05/21 7:02 AM Result Value Ref Range Protime 32.3 (H) 10.2 - 12.9 SEC INR 2.8 MAGNESIUM Collection Time: 11/05/21 7:02 AM Result Value Ref Range MAGNESIUM 2.0 1.8 - 2.4 MG/DL CBC W/DIFF AUTOMATED Collection Time: 11/05/21 7:02 AM Result Value Ref Range WBC 4.4 (L) 4.5 - 11.0 x10'3/uL RBC 2.61 (L) 4.20 - 5.40 x10'6/uL HGB 8.2 (L) 12.0 - 16.0 G/DL HCT 26.8 (L) 38.0 - 48.0 % MCV 102.7 (H) 81.0 - 99.0 FL MCH 31.4 (H) 27.0 - 31.0 PG MCHC 30.6 (L) 32.0 - 36.0 G/DL RDW 12.6 11.5 - 14.5 % PLT 201 130 - 400 x10'3/uL MPV 13.3 (H) 9.3 - 12.2 FL DIFFERENTIAL TYPE AUTOMATED DIFFERENTIAL NEUTROPHILS 51.2 % LYMPHOCYTES 25.5 % MONOCYTES 18.3 % EOSINOPHILS 4.3 % BASOPHILS 0.7 % IMMATURE GRANS 0.0 % ABS. NEUTROPHILS TOTAL 2.27 1.80 - 7.70 x10'3/uL ABS. LYMPHOCYTES 1.13 1.00 - 4.80 x10'3/uL ABS. MONOCYTES 0.81 0.24 - 0.86 x10'3/uL ABS. EOSINOPHILS 0.19 0.04 - 0.36 x10'3/uL ABS. BASOPHILS 0.03 0.01 - 0.08 x10'3/uL ABS. IMMATURE GRANULOCYTES 0.00 0.00 - 0.49 x10'3/uL COMPREHENSIVE METABOLIC PANEL Collection Time: 11/05/21 7:02 AM Result Value Ref Range GLUCOSE 76 70 - 99 MG/DL BUN 24 (H) 7 - 18 MG/DL CREATININE S/P/B 1.22 (H) 0.55 - 1.02 MG/DL SODIUM 139 136 - 145 MMOL/L POTASSIUM 4.1 3.5 - 5.1 MMOL/L CHLORIDE S/P/B 106 100 - 108 MMOL/L CO2 30.7 21 - 32 MMOL/L CALCIUM 9.8 8.5 - 10.1 MG/DL BILIRUBIN TOTAL S/P/B 0.5 0.2 - 1.2 MG/DL TOTAL PROTEIN S/P/B 5.6 (L) 6.4 - 8.2 G/DL ALBUMIN S/P/B 2.5 (L) 3.4 - 5.0 G/DL AST 22 15 - 37 U/L ALT 21 14 - 55 U/L ALKALINE PHOSPHATASE S/P/B 89 50 - 136 U/L ANION GAP 2.3 (L) 5 - 15 MMOL/L BUN CREATININE RATIO 19.7 6 - 26 A/G RATIO 0.8 (L) 1.0 - 2.0 RATIO GFR ESTIMATE 46 (L) >90 ML/MIN/1.73 M2 Discharge Exam: Filed Vitals: 11/04/21 1936 11/04/21 2333 11/05/21 0245 11/05/21 0851 BP: 136/82 110/57 119/68 (!) 137/90 Pulse: 101 84 90 86 Resp: 28 16 20 14 Temp: 98.6 ??F (37 ??C) 98.4 ??F (36.9 ??C) 98.2 ??F (36.8 ??C) 98.2 ??F (36.8 ??C) TempSrc: Oral Oral Oral Oral SpO2: 90% 90% 91% 91% Weight: Height: Physical Exam Constitutional: General: She is [...] Affect: Affect normal. Discharge Medications: Medication List START taking these medications Morning Afternoon Evening Bedtime As Needed metoprolol tartrate 25 MG tablet Commonly known as: LOPRESSOR Take 0.5 tablets (12.5 mg total) by mouth 2 (two) times daily. Last time this was given: 12.5 mg on November 05, 2021 8:47 AM CHANGE how you take these medications Morning Afternoon Evening Bedtime As Needed furosemide 20 MG tablet Commonly known as: LASIX Start taking on: November 06, 2021 Take 3 tablets (60 mg total) by mouth daily. Last time this was given: 60 mg on November 05, 2021 8:48 AM What changed: ?? medication strength ?? how much to take lisinopril 2.5 MG tablet Commonly known as: PRINIVIL Start taking on: November 06, 2021 Take 1 tablet (2.5 mg total) by mouth daily. Last time this was given: 2.5 mg on November 05, 2021 8:47 AM What changed: ?? medication strength ?? how [...] Take 1 tablet by mouth once daily Generic drug: ferrous sulfate (65 mg elemental) fluticasone propionate 50 MCG/ACT nasal spray Commonly known as: FLONASE 2 sprays by Nasal route daily. gabapentin 300 MG capsule Commonly known as: NEURONTIN Take 1 capsule (300 mg total) by mouth 2 (two) times daily. Last time this was given: 300 mg on November 05, 2021 8:47 AM HYDROcodone-acetaminophen 10-325 MG tablet Commonly known as: NORCO Take 1 tablet by mouth every 6 (six) hours as needed for Pain. Indications: Chronic Pain Do not take with alprazolam. No further refills until seen in office. Last time this was given: Ask your nurse or doctor lidocaine 5 % Commonly known as: LIDODERM Apply pain patch to affected area. Change after 12 hours. Last time this was given: Ask your nurse or doctor methIMAzole 5 MG tablet Commonly known as: TAPAZOLE Take 1 tablet (5 mg total) by mouth daily. Last time this was given: 5 mg on November 05, 2021 8:48 AM omeprazole 20 MG capsule Commonly known as: PriLOSEC Take 1 capsule by mouth once daily rosuvastatin 5 MG tablet Commonly known as: CRESTOR Take 1 tablet (5 mg total) by mouth nightly at bedtime. venlafaxine XR 150 MG 24 hr capsule Commonly known as: EFFEXOR-XR Take 1 capsule by mouth once daily Last time this was given: 150 mg on November 05, 2021 8:48 AM Vitamin D3 25 MCG (1000 UT) Caps Take 1,000 Units by mouth daily. warfarin 5 MG tablet Commonly known as: COUMADIN Take 5 mg by mouth daily. Last time this was given: 4 mg on November 04, 2021 5:39 PM STOP taking these medications cefdinir 300 MG Caps capsule Commonly known as: OMNICEF metoprolol succinate ER 25 MG 24 hr tablet Commonly known as: TOPROL-XL Disposition: Swing bed Time Spent on Discharge: Less than 30 minutes This note was dictated with [employer] dictation software; misspellings, punctuation errors, omitted words or dictation variances may occur. TERE NELSON PA-C 11/05/2021 11:04 AM Primary care physician: Suleman Webster, Extended Emergency Contact Information Primary Emergency Contact: Shannon Vigil Relation: Sister Preferred language: Namibian Senior Warehouse Clerk needed? No Secondary Emergency Contact: Dayami Ma Mobile Relation: Friend Senior Warehouse Clerk needed? No Cosigned by Jonathan Gaytan MD at 11/06/2021 6:03 AM CDT documented in this encounter Medications at Time [...] hronic obstructive pulmonary disease, unspecified COPD type ([facility]/HCC [facility]) Inhale 2 puffs into the [...] tablets (60 mg total) by mouth daily. 60 tablet 3 11/06/2021 2 furosemide (LASIX) 20 MG tablet Take 3 [...] mouth daily. 30 tablet 3 11/12/2021 2 warfarin (COUMADIN) 5 MG tablet Take 5 mg by mouth daily. 2 documented as of this encounter Progress Notes * Fátima Rushing - 11/05/2021 3:28 PM CDT I delivered the Reinforcement Important Message from Medicare (Subsequent IMM) to Ana Maria Bobo and after explaining the form to the patient, the Patient signed the form. The Patient received acopy of the form for their records. 11/05/21 1528 Forms Reinforcement Important Message from Medicare (Subsequent IMM) Signed Copy delivered * Oneil Michelle RN - 11/05/2021 2:16 PM CDT 11/05/21 1416 Discharge Planning Support Systems Children;Friends/Neighbors Type of Residence Swing Bed ([facility]) Assistance/Services Needed No IV Infusion at discharge No Patient expects to be discharged to: ([facility]) DME Needed at Discharge No Patient to [facility] swing [facility] this date. 1800 [facility] arranged for transport. Patient notified family. Patient will go to room 102, report to be called to [phone], [place] notified. * Betty Acosta PTA - 11/05/2021 11:29 AM CDT 11/05/21 1016 Therapy Visit Ordering Provider Ismael Sanchez Rm [id number]: Attempted to see pt, however pt eating breakfast. Will check back at later time/date. Reason for admission OLIVE * Yoko Desouza, Alvarez - 11/05/2021 9:34 AM CDT Warfarin Pharmacy to Dose Day #13 Ordering Provider: Dr. Bell Indication: Afib, Mechanical AVR Goal INR: 2.5-3.5 Home Dose: 5 mg daily Date Dose INR H/H/PLT 10/22 held 3.7 9.2/31.1/178 10/23 held 3.7 8.1/27.3/155 8/18 4 mg 3.1 8.1/26.9/152 8/19 5 mg 2.6 7.9/26.4/151 8/20 4 mg 3.2 7.7/25.8/147 8/ held 4.3 8.1/27.3/166 8/ 4 mg 3.4 7.6/26.1/162 8/23 3 mg 3.3 8.2/28.3/142 8/24 1 mg 3.5 7.5/25.8/171 8/25 3 mg 3.1 7.5/26.0/174 8/ 2.5 mg 3.0 7.9/26.1/185 8/ 3 mg 2.6 7.5/24.9/177 8/ 4 mg 2.2 7.9/26.5/188 8/ 4 mg 2.4 7.9/26.3/189 8/30 2.8 8.2/26.8/201 Diet: Cardiac, low cholesterol (90% intake charted on 11/03) New Interacting Medications: none A/P: Pt on home warfarin of 5 mg daily for Afib and mechanical AVR and is admitted with hypotension. 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 INR therapeutic at 2.8. H/H/plt stable. No s/sx of bleeding per notes. Average warfarin dose over last 7 days: ~ 2.9 mg. Will decrease warfarin to 3 mg today. Daily INRs are ordered. Pharmacy will continue to follow. Thank you for the consult. * Sharon Avelar RN - 11/04/2021 9:43 PM CDT Problem: Reduced risk for falls/injury Goal: Reduced Risk for Falls/Injury Outcome: Progressing Problem: Reduced risk for falls/injury Goal: Reduced Risk of Confusion (Acute vs Chronic) Outcome: Progressing Problem: Pain Goal: Patient's pain/discomfort [...] policy, and non-skid footwear provided. Outcome: Progressing * Indiana Brand, OT - 11/04/2021 2:31 PM CDT 11/04/21 1400 Therapy Visit OT Evaluation Completed on 10/28/21 Reason for admission OLIVE Comorbidities Relevant to OT PNA, AF, CAD, HTN, DM, HLD, GERD, hypothyroidism Ordering Provider Ismael Verified Two Patient Identifiers Yes Patient consents to therapy Yes Acute Inpatient OT Time Calculation OT Start Time 0200 OT Stop Time 0223 OT Time Calculation (min) 23 min Precautions General Precautions Bed Alarm;Chair Alarm;Fall Risk;Supplemental oxygen PPE Used Face mask;Gloves Instructed on Precautions Yes Subjective Subjective RM 443: Pt sitting in chair at arrival and agreeable to OT treatment session Pain Pain Yes Pain Score 10 Location abdominal pain Interventions Informed RN;Re-direction;Re-positioning Activity Tolerance Endurance Tolerates 10 - 20 min activity with rests Endurance Quality Fair Limiting Factors to Endurance Acute deconditioning;Fatigue Pre-activity VS SPO2 92% VS Response During Activity SpO2 91% Cognition Overall Cognitive Status WFL Arousal/Alertness Appropriate responses to stimuli Attention Span Appears intact Orientation Level Oriented X4 Following Commands Follows one step commands without difficulty Safety Judgment Decreased awareness of need for safety ADL LE Dressing Assistance Stand by;Sitting in chair LE Dressing Deficit Setup LE Dressing Comment Pt able to don socks and manage LE clothing with toileting Toileting Assistance Stand by Toileting Deficit Setup;Supervision/safety;Grab bar use Toileting Comment Pt was able to manage gown and complete denice care with SBA Bed Mobility Sit to Supine Modified independence Functional Transfers Sit to Stand SBA/supervision;Min assist Toilet Transfers Min assist;Grab bars (with 2ww) Balance Sitting - Static Independent Sitting - Dynamic Independent Standing - Static SBA Standing - Dynamic SBA Patient/Family Training Self Cares x Transfer Training x DME Education x Precautions x OT Assessment OT Assessment Pt is improving with activity tolerance and independence with ADLS Recommendation OT Recommendation Swing bed unit OT Equipment Recommended To Be Determined Plan OT Treatment/Intervention Self-care training;Therapeutic activities;Cognitive skills development;Functional activity;Safety Progress Progressing toward goals OT Frequency 3 times/week OT plan for next session ADLs If this is the last treatment note, it will serve as the discharge summary Yes End of Session End of Session Safety Bed alarm set/activated;Chair alarm set/activated;Call light within reach;Nursing aware of session Interdisciplinary Collaboration RN * Oneil Michelle RN - 11/04/2021 2:10 PM CDT Spoke with patient at bedside, remains agreeable to [facility] Bed at discharge. Requested updated PT/OT evaluations for [employer] authorization. * Betty Acosta PTA - 11/04/2021 1:58 PM CDT 11/04/21 1312 Therapy Visit Ordering Provider Ismael Sanchez RM 443: Pt supine in bed and agreeable to therapy. Reason for admission OLIVE Relevant Comorbidities/ Personal Factors to PT 10/15/21 PNA and disch'd home 10/21/21 and returned dueto weakness, afib, aflutter, CAD, HTN, DM, HLD, GERD, HYPOTHYROIDISM Verified Two Patient Identifiers Yes Patient consents to therapy Yes Acute Inpatient PT Time Calculation PT Start Time 1312 PT Stop Time 1327 PT Time Calculation (min) 15 min Precautions General Precautions Bed Alarm;Chair Alarm;Fall Risk;Supplemental oxygen PPE Used Face mask;Gloves Instructed on Precautions Yes Pain Pain Yes Pain Score Did not rate Location B shoulders Interventions Re-positioning;Re-direction;Informed RN Activity Tolerance Endurance Tolerates 10 - 20 min activity with rests Endurance Quality Fair Limiting Factors to Endurance Acute deconditioning;Fatigue VS Response During Activity SpO2 74-76% on RA. Post Activity VS Recovery SpO2 96% on RA Activity Tolerance Comments Per pt, removed O2 this AM and on RA. Pt ambulated on RA, SpO2 74 -76%. Pt required multiple standing rest breaks d/t SOB and easy exertion. Pt returned to chair and instructed in PLB and placement of 2L d/t increased time for recovery. Pt returned to RA upon recoveryand RN made aware of session. Cognition Orientation Level Oriented X4 Following Commands Follows one step commands without difficulty Safety Judgment Decreased awareness of need for safety Bed Mobility Supine to Sit Modified independence Sit to Supine Modified independence TRANSFERS Sit to Stand Min assist;SBA/supervision Gait Gait Assistance Min assist Assistive Device 2 Wheeled walker Distance Ambulated (ft) 90 ft Other (Comment) Mild foward flex posture, moderate royer, dec stride. Limited gait tolerance, as pt fatigues quickly. Multiple standing rest breaks required d/t SOB and easy exertion. No LOB noted. Balance Sitting - Static Independent Sitting - Dynamic Independent Standing - Static SBA Standing - Dynamic Min Assist Patient/Family Training Bed Mobility x Transfer Training x Gait Training x Precautions x Recommendation PT Recommendation Swing bed unit (or home with assistance and C pending progress) PT Equipment Recommended Currently has DME in Place Plan PT Treatments/Interventions Gait Training;Therapeutic Exercises;Therapeutic Activities Progress Progressing toward goals PT Frequency Daily;5 times/week PT plan for next session cont transfers, gait and endurance If this is the last treatment note,it will serve as the discharge summary Yes End of Session End of Session Safety Chair alarm set/activated;Call light within reach;Nursing aware of session * Saranya Mixon RN - 11/04/2021 11:56 AM CDT Problem: Reduced risk for falls/injury Goal: Reduced Risk for Falls/Injury Outcome: Met This Shift Goal: Reduced Risk of Confusion (Acute vs Chronic) Outcome: Met This Shift Goal: Reduced Risk of Symptomatic Depression Outcome: Met This Shift Goal: Reduced Risk of Altered Elimination Outcome: Met This Shift Goal: Reduced Risk of Dizziness/Vertigo/Balance Outcome: Met This Shift Goal: Reduced Risk of Polypharmacy Outcome: Met This Shift Problem: Pain Goal: Patient's pain/discomfort is manageable Description: Assess and monitor patient's pain using appropriate pain scale. Collaborate with interdisciplinary team and initiate plan and interventions as ordered. Re-assess patient's pain level 30 - 60 minutes after pain management intervention. Outcome: Met This Shift Problem: Safety Goal: Patient will be injury [...] per policy, and non-skid footwear provided. Outcome: Met This Shift Problem: Daily Care Goal: Daily care needs are met Description: Assess and monitor ability to perform self care and identify potential discharge needs. Outcome: Met This Shift Problem: Psychosocial Needs Goal: Demonstrates ability to cope with hospitalization/illness Description: Assess and monitor patients ability to cope with his/her illness. Outcome: Met This Shift Goal: Collaborate with patient/family/caregiver to identify patient specific goals for this hospitalization Outcome: Met This Shift Problem: Discharge Barriers Goal: Patient's discharge needs are met Description: Collaborate with interdisciplinary team and initiate plans and interventions as needed. Outcome: Met This Shift * Tere Nelson PA-C - 11/04/2021 11:24 AM CDT Hospitalist Daily Progress Note Subjective Ana Maria Bobo is a 76-year-old female on hospital day 13 No acute events overnight. Diuresing well. Still notes TORRES with exertion otherwise feels improved. Tolerating diet. Pain controlled Review of Systems Constitutional: Negative for chills, diaphoresis, fever and malaise/fatigue. HENT: Negative. Eyes: Negative for blurred vision and double vision. Respiratory: Positive for shortness of breath. Negative for cough, sputum production and wheezing. Cardiovascular: Negative for chest pain, palpitations, orthopnea and leg swelling. Gastrointestinal: Negative for abdominal pain, blood in stool, constipation, diarrhea, nausea and vomiting. Genitourinary: Negative for dysuria, frequency and hematuria. Musculoskeletal: Negative. Negative for falls. Skin: Negative. Neurological: Negative for dizziness, speech change, focal weakness and headaches. Psychiatric/Behavioral: Negative. Patient seen and examined, notes were reviewed Medication ??? furosemide 60 mg Intravenous BID ??? gabapentin 300 mg Oral BID ??? lidocaine 1 patch Transdermal Q24H ??? lisinopril 2.5 mg Oral Daily ??? methIMAzole 5 mg Oral Daily ??? metoprolol tartrate 12.5 mg Oral BID ??? morphine 1 mg Intravenous Once ??? pantoprazole EC 20 mg Oral Daily ??? senna-docusate 1 tablet Oral Nightly at bedtime ??? venlafaxine XR 150 mg Oral Daily with breakfast ??? warfarin (COUMADIN) pharmacy to dose Oral See Admin Instructions ??? warfarin 4 mg Oral Once PRN Meds: acetaminophen, albuterol sulfate HFA, ALPRAZolam, calcium carbonate, dextrose 10 % bolus,glucagon, glucose, HYDROcodone-acetaminophen, risrxxckw-vncjwoyr-azifxpiignl, naLOXone, nitroglycerin, ondansetron, polyethylene glycol Objective PHYSICAL EXAMINATION: Vital 24 Hour Range Most Recent Value Temperature Temp Min: 97.5 ??F (36.4 ??C) Max: 98.8 ??F (37.1 ??C) 97.9 ??F (36.6 ??C) Pulse Pulse Min: 80 Max: 90 80 Respiratory Resp Min: 16 Max: 16 16 Blood Pressure BP Min: 110/42 Max: 120/72 120/72 Pulse Oximetry SpO2 Min: 98 % Max: 100 % 99 % O2 O2 Flow Rate (L/min) Av L/min Min: 2 L/min Min taken time: 11/04/21427 Max: 2 L/min Max taken time: 11/04/21427 Vital Most Recent Value First Value Weight 85.2 kg (187 lb 13.3 oz) Weight: 83.9 kg (185 lb) Height 5' 4 (162.6 cm) Height: 5' 4 (162.6 cm) BMI (!) 32.23 N/A Estimated body mass index is 32.24 kg/m?? as calculated from the following: Height as of this encounter: 5' 4 (1.626 m). Weight as of this encounter: 85.2 kg (187 lb 13.3 oz). Physical Exam Constitutional: Appearance: Normal appearance. Comments: On NC, comfortable HENT: Head: Normocephalic and atraumatic. Mouth/Throat: Mouth: Mucous membranes are moist. Pharynx: Oropharynx is clear. Eyes: Conjunctiva/sclera: Conjunctivae normal. Pupils: Pupils are equal, round, and reactive to light. Cardiovascular: Rate and Rhythm: Normal rate. Pulmonary: Effort: No respiratory distress. Breath sounds: No wheezing or rales. Abdominal: General: There is no distension. Musculoskeletal: Right lower leg: No edema. Left lower leg: No edema. Neurological: General: No focal deficit present. Mental Status: She is alert. Intake/Output last 3 shifts: I/O last 3 completed shifts: In: 480 [P.O.:480] Out: 1300 [Urine:1300] Labs: Recent Results (from the past 24 hour(s)) POCT glucose Collection Time: 11/03/21 11:47 AM Result Value Ref Range GLUCOSE POC 131 (H) 70 - 99 mg/dL POCT glucose Collection Time: 11/03/21 3:24 PM Result Value Ref Range GLUCOSE POC 117 (H) 70 - 99 mg/dL PROTIME/INR, VENOUS Collection Time: 11/04/21 8:11 AM Result Value Ref Range Protime 27.7 (H) 10.2 - 12.9 SEC INR 2.4 CBC W/DIFF AUTOMATED Collection Time: 11/04/21 8:11 AM Result Value Ref Range WBC 4.7 4.5 - 11.0 x10'3/uL RBC 2.54 (L) 4.20 - 5.40 x10'6/uL HGB 7.9 (L) 12.0 - 16.0 G/DL HCT 26.3 (L) 38.0 - 48.0 % MCV 103.5 (H) 81.0 - 99.0 FL MCH 31.1 (H) 27.0 - 31.0 PG MCHC 30.0 (L) 32.0 - 36.0 G/DL RDW 12.5 11.5 - 14.5 % PLT 189 130 - 400 x10'3/uL MPV 13.1 (H) 9.3 - 12.2 FL DIFFERENTIAL TYPE AUTOMATED DIFFERENTIAL NEUTROPHILS 55.1 % LYMPHOCYTES 20.1 % MONOCYTES 18.6 % EOSINOPHILS 5.1 % BASOPHILS 0.9 % IMMATURE GRANS 0.2 % ABS. NEUTROPHILS TOTAL 2.58 1.80 - 7.70 x10'3/uL ABS. LYMPHOCYTES 0.94 (L) 1.00 - 4.80 x10'3/uL ABS. MONOCYTES 0.87 (H) 0.24 - 0.86 x10'3/uL ABS. EOSINOPHILS 0.24 0.04 - 0.36 x10'3/uL ABS. BASOPHILS 0.04 0.01 - 0.08 x10'3/uL ABS. IMMATURE GRANULOCYTES 0.01 0.00 - 0.49 x10'3/uL COMPREHENSIVE METABOLIC PANEL Collection Time: 11/04/21 8:11 AM Result Value Ref Range GLUCOSE 74 70 - 99 MG/DL BUN 21 (H) 7 - 18 MG/DL CREATININE S/P/B 1.09 (H) 0.55 - 1.02 MG/DL SODIUM 142 136 - 145 MMOL/L POTASSIUM 4.5 3.5 - 5.1 MMOL/L CHLORIDE S/P/B 109 (H) 100 - 108 MMOL/L CO2 31.0 21 - 32 MMOL/L CALCIUM 10.2 (H) 8.5 - 10.1 MG/DL BILIRUBIN TOTAL S/P/B 0.4 0.2 - 1.2 MG/DL TOTAL PROTEIN S/P/B 5.5 (L) 6.4 - 8.2 G/DL ALBUMIN S/P/B 2.4 (L) 3.4 - 5.0 G/DL AST 21 15 - 37 U/L ALT 24 14 - 55 U/L ALKALINE PHOSPHATASE S/P/B 86 50 - 136 U/L ANION GAP 2.0 (L) 5 - 15 MMOL/L BUN CREATININE RATIO 19.3 6 - 26 A/G RATIO 0.8 (L) 1.0 - 2.0 RATIO GFR ESTIMATE 52 (L) >90 ML/MIN/1.73 M2 MAGNESIUM Collection Time: 11/04/21 8:11 AM Result Value Ref Range MAGNESIUM 2.0 1.8 - 2.4 MG/DL Imagining & Other Studies Radiology Results (Last 30 days) 11/01/21 0815 XR CHEST PA+LAT Final result Impression: IMPRESSION:===== Small bilateral pleural effusions with associated atelectasis. Pulmonary venous congestion, possibly mild edema. Overall, stable. Referred By: Interpreted By: Jarvis Munoz MD, 11/01/2021 8:18 AM 10/31/21 1339 NM PHARM NUC STRESS TEST 1DAY Final result 10/27/[address] ABD+PEL WO CON Final result Impression: IMPRESSION: ===== 1. Length of sigmoid colon in the mid pelvis with diffuse wall thickening and surrounding inflammatory stranding mildly worsened from comparison exam. No perforation or abscess formation identified within limits of this noncontrast exam. Acute diverticulitis is favored. Underlying neoplasm not excluded. Follow-up recommended to ensure resolution. 2. Focal nodularity in the gallbladder wall is indeterminate but concerning for neoplasm. Follow-up nonemergent right upper quadrant ultrasound recommended if not previously obtained elsewhere. 3. Small right and tiny left pleural effusions 4. Coronary artery calcifications and atherosclerotic aorta 5. Low-density blood pool raises suspicion for anemia Referred By: Interpreted By: Quoc Wilkinson MD, 10/27/2021 9:20 AM 10/25/212015 MRI BRAIN WO CON Final result Impression: IMPRESSION: 1. No acute intracranial abnormality. 2. Moderate global cerebral volume loss and mild to moderate chronic small vessel ischemic change. 3. Redemonstrated right MCA bifurcation saccular aneurysm, similar to the prior CT head examination from 10/22/2021. Referred By: Interpreted By: José Almeida MD, 10/25/2021 10:52 PM 10/25/[address] CHEST WO CON Final result Impression: IMPRESSION:===== 1. Stable four-chamber cardiomegaly with mild anemia. 2. Trace nondrainable dependent left pleural effusion and even less equivocal trace left pleural fluid. 3. Stable focal left lower lobe anterior basal subsegmental atelectasis and minimal dependent subsegmental atelectasis. 4. Scattered subtle interlobular septal thickening may indicate an element of fluid overload. 5. No other acute or chronic significant airspace or airway finding. 6. Other nonemergent, incidental, stable and potential chronic findings as discussed in the report body above. Ordered By: SULEMAN DUEÑAS Interpreted By: Rangel Dominguez MD, 10/25/2021 8:38 AM 10/22/211818 XR CHEST PORTABLE Final result Impression: IMPRESSION: 1. Enlarged heart. 2. Artifact versus some mild increased density in the left lung base. Referred By: Interpreted By: Neel Basurto MD, 10/22/2021 6:20 PM 10/22/21 1320 CTA HEAD Final result Impression: IMPRESSION: 1. 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 Similar findings described on prior catheter angiography examination 08/10/2020, though no images are available for direct comparison. Ordered By: SULEMAN WEBSTER Interpreted By: Dale Brush MD, 10/23/2021 9:21 AM 10/19/21 0708 XR CHEST PA+LAT Final result Impression: IMPRESSION: ======== 1. Developing opacity at the anterior left lung base may be infiltrate or atelectasis. Stable interval appearance of the chest otherwise. Referred By: Interpreted By: Quoc Wilkinson MD, 10/19/2021 7:10 AM 10/16/21 1546 USE ECHOCARDIOGRAM W CON Final result 10/15/21 1736 CTA CHEST Final result Impression: IMPRESSION: 1. No evidence of pulmonary embolism or other acute findings. 2. Cardiomegaly. 3. Other chronic or nonurgent findings as described above. Referred By: Interpreted By: Estevan Martines MD, 10/15/2021 5:52 PM 10/15/21 1625 USV NEGRITA DUPLEX LOW EXT RT Final result 10/15/21 1332 XR CHEST PORTABLE Final result Impression: Impression: 1. No acute infiltrate. 2. Borderline vascular congestion. Referred By: Interpreted By: Estevan Martines MD, 10/15/2021 1:33 PM Results for orders placed or performed during the hospital encounter of 10/22/21 ECG 12 lead Narrative [facility] [place] [facility] Test Date: 2021-10-22 Pat Name: ANA MARIA BOBO Department: 41 Room: B443 Gender: Female Credit Report Checker: : 1945 Requested By: SANJANA BATES Order Number: [id number] Reading MD: Sanjana Ludwig Measurements Intervals [place] Rate: 86 P: MS: 0 QRS: -37 QRSD: 160 T: 98 QT: 411 QTc: 494 Interpretive Statements ATRIAL FIBRILLATION LEFT AXIS DEVIATION [QRS AXIS < -30] LEFT BUNDLE BRANCH BLOCK [120+ ms QRS DURATION, 80+ ms Q/S IN V1/V2, 85+ ms R IN I/aVL/V5/V6] Compared to ECG 10/15/2021 17:09:13 Left-axis deviation now present ECG 12 lead Narrative [facility] [address] Test Date: 2021-10-28 Pat Name: ANA MARIA BOBO Department: 40 Room: [id number] Gender: Female Credit Report Checker: : 1945 Requested By: ASHU DENG Order Number: [id number] Reading : Tere Cedillo Measurements Intervals [place] Rate: 94 P: MS: 0 QRS: -39 QRSD: 159 T: 89 QT: 365 QTc: 458 Interpretive Statements ATRIAL FIBRILLATION LEFT BUNDLE BRANCH BLOCK [120+ ms QRS DURATION, 80+ ms Q/S IN V1/V2, 85+ ms R IN I/aVL/V5/V6] Compared to ECG 10/22/2021 18:11:32 No significant changes ECG 12 lead Narrative [facility] [place] [address] [facility] Test Date: 2021-10-30 Pat Name: ANA MARIA BOBO Department: 40 Room: [id number] Gender: Female Credit Report Checker: : 1945 Requested By: ASHU DENG Order Number: [id number] Reading : Tere Cedillo Measurements Intervals [place] Rate: 88 P: MS: 0 QRS: -26 QRSD: 158 T: 116 QT: 380 QTc: 462 Interpretive Statements ATRIAL FIBRILLATION LEFT BUNDLE BRANCH BLOCK [120+ ms QRS DURATION, 80+ ms Q/S IN V1/V2, 85+ ms R IN I/aVL/V5/V6] Compared to ECG 10/28/2021 18:07:07 Left-axis deviation no longer present Assessment & Plan Length of stay (DAYS):13 Problem List Items Addressed This Visit Cardiac and Vasculature Elevated troponin Other Visit Diagnoses Hypotension - Primary Dehydration Weakness Pneumonia of left lower lobe due to infectious organism Relevant Medications azithromycin (ZITHROMAX) tablet 500 mg (Completed) Acute on chronic heart failure combined ejection fraction Increased shortness of breath with BLE edema POA pBNP 14,562 CXR 11/01: Small bilateral pleural effusions. planning assistant I/Os, daily weights Echo 10/16 LVEF 40-45%, mild to moderate pulm HTN Cardiology consulted. Appreciate recs IV lasix started per cardiology?? Transition to p.o. diuretics at cardiology discretion Trend strict I's/O Daily weights and follow with cardiology NSVT: Stable 10/28 patient had 9 beat run of Vtach, asymptomatic F/u EKG, electrolytes C/w BB telemetry ?? Acute diverticulitis: resolved F/u CT abd/pelvis revealed acute diverticulitis Completed 6 days of cefoxitin IV ?? Hypotension Suspect over diuresis and poor oral intake [...] ASA 81 mg per cardiology Telemetry Stress test: LVEF 51%, no ischemia? Acute on chronic renal??failure Initially suspect seconday to hypotension, possible diuresis and reduced oral intake. She is s/p 2 L normal saline in the ED Now being diuresed for acute on chronic CHF as above Resolving ?? Possible??CAP Patient afebrile no leukocytosis?? Pulm consulted Sputum culture: normal betty Antibiotics discontinued per pulmonology ?? Acute hypoxic respiratory failure: Secondary to the above patient continues to be maintained on 2 L nasal cannula 1 L while sleeping?? Patient also found to have respiratory acidosis?? Started BiPAP, now dc'd Pulm consulted Less concerning for PNA-stop abx Monitor with IV diuresis?? Improving- on 2L NC, wean as tolerated?? Will need a home O2 test prior to discharge ?? A. fib currently rate controlled??; history of mechanical valve Sroke risk reduction with [...] Close outpatient follow up for further imaging? - DVT prophylaxis:??Coumadin - Diet/IVF:??Cardiac - Code status: Full code ?? Other changes to meds to be made based on progress during hospitalization. All plans discussed with patient/patient's family/house supervisor. They are agreeable with plan and voiced understanding. This note was dictated with [employer] medical dictation software; misspellings, punctuation errors, omitted words or dictation variances may occur. TERE NELSON PA-C 11/04/2021 11:25 AM Primary care physician: Suleman Webster, DO Extended Emergency Contact Information Primary Emergency Contact: Shannon Vigil Relation: Sister Preferred language: [place]ian Senior Warehouse Clerk needed? No Secondary Emergency Contact: Dayami Ma Mobile Relation: Friend Senior Warehouse Clerk needed? No Cosigned by Jonathan Gaytan MD at 11/06/2021 6:04 AM CDT * Yoko Desouza, MiladD - 11/04/2021 11:15 AM CDT Warfarin Pharmacy to Dose Day #12 Ordering Provider: Dr. Bell Indication: Afib, Mechanical AVR Goal INR: 2.5-3.5 Home Dose: 5 mg daily Date Dose INR H/H/PLT 10/22 held 3.7 9.2/31.1/178 8/ held 3.7 8.1/27.3/155 8/18 4 mg 3.1 8.1/26.9/152 8/19 5 mg 2.6 7.9/26.4/151 8/20 4 mg 3.2 7.7/25.8/147 8/21 held 4.3 8.1/27.3/166 8/22 4 mg 3.4 7.6/26.1/162 8/23 3 mg 3.3 8.2/28.3/142 8/24 1 mg 3.5 7.5/25.8/171 8/25 3 mg 3.1 7.5/26.0/174 8/26 2.5 mg 3.0 7.9/26.1/185 8/27 3 mg 2.6 7.5/24.9/177 8/28 4 mg 2.2 7.9/26.5/188 8/29 2.4 7.9/26.3/189 Diet: Cardiac, low cholesterol (90% intake charted on 11/03; N/V noted on 11/03) New Interacting Medications: none A/P: Pt on home warfarin of 5 mg daily for Afib and mechanical AVR and is admitted with hypotension. 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 INR right below therapeutic range at 2.4 this morning. H/H/plt stable. No s/sx of bleeding per notes. Average warfarin dose over last 7 days: ~ 2.9 mg. Will repeat warfarin 4 mg today. (Will plan to decrease dose to 3 mg tomorrow if therapeutic INR obtained.) Daily INRs are ordered. Pharmacy will continue to follow. Thank you for the consult. 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 Lj aortic valve (on warfarin), hypertension, obstructive sleep apnea compliant with CPAP. CAD, diabetes mellitus, HTN, HLD admitted on 10/22/2021 5:53 PM with weakness Subjective: Patient is comfortable in bed. Believes she may be going home later this afternoon after being switched to orals this am. No swelling or sob at rest. Waiting to walk with therapy. Assessment: NSTEMI Echo done last admit showed EF was 40-45%, global hypokinesis. Changed from 08/27 study showing EF 50-55% and no regional WM abn. Coronary calcification on CT. Stress with no ischemia. Left bundle is not new. ?? Mechanical AVR Continue warfarin, INR goal is 2.5-3.5 INR today is?? 2.4- pharmacy dosing ?? MR, moderate ?? Acute combined CHF. Patient weaned to RA. No sig edema or rales on posterior exam. Weaned back to oral diuretics this am. ?? A. fib Vent rate controlled on BB dosing. Warfarin per pharm Dr. Paredes had previously stopped low dose amiodarone Reviewed tele, no VT seen. Likely a fib with RVR TSH<0.005 per others ?? Anemia Low, stable. Per others. Remains on warfarin dosing ?? Abn CT Concern for neoplasm with non-urgent f/u imaging recommended ?? Right MCA sacular aneurysm Appears stable from previous imaging per radiology read Plan: Oral diuretics Can likely dc next 24 hours Review of Systems Constitutional: Positive for malaise/fatigue. Respiratory: Negative for cough, shortness of breath and wheezing. Cardiovascular: Negative for chest pain and leg swelling. Gastrointestinal: Negative for abdominal pain and nausea. Neurological: Negative for dizziness and headaches. Psychiatric/Behavioral: The patient is not nervous/anxious. Objective: Scheduled Medications: ??? furosemide 60 mg Intravenous BID ??? gabapentin 300 mg Oral BID ??? lidocaine 1 patch Transdermal Q24H ??? lisinopril 2.5 mg Oral Daily ??? methIMAzole 5 mg Oral Daily ??? metoprolol tartrate 12.5 mg Oral BID ??? morphine 1 mg Intravenous Once ??? pantoprazole EC 20 mg Oral Daily ??? senna-docusate 1 tablet Oral Nightly at bedtime ??? venlafaxine XR 150 mg Oral Daily with breakfast ??? warfarin (COUMADIN) pharmacy to dose Oral See Admin Instructions acetaminophen, albuterol sulfate HFA, ALPRAZolam, calcium carbonate, dextrose 10 % bolus, glucagon,glucose, HYDROcodone-acetaminophen, dvlqwctsu-mtycwmvc-xvizgtefryo, naLOXone, nitroglycerin, ondansetron, polyethylene glycol Vitals: Filed Vitals: 11/03/21 1935 11/03/21 2315 11/04/21 0428 11/04/21 0700 BP: 110/42 115/64 117/58 120/72 Pulse: 87 90 84 80 Resp: 16 16 16 Temp: 98.8 ??F (37.1 ??C) 97.5 ??F (36.4 ??C) 97.9 ??F (36.6 ??C) TempSrc: Oral Oral Oral SpO2: 100% 98% 99% 99% Weight: 85.2 kg (187 lb 13.3 oz) Height: I/O: Intake/Output Summary (Last 24 hours) at 11/04/2021 1039 Last data filed at 11/04/2021 0600 Gross per 24 hour Intake 240 ml Output 1300 ml Net -1060 ml Last 3 Recorded Weights 10/31/21 0500 11/02/21 0518 11/04/21 0428 Weight: 88.8 kg (195 lb 12.3 oz) 88.3 kg (194 lb 9.6 oz) 85.2 kg (187 lb 13.3 oz) Physical Exam: Physical Exam Vitals reviewed. Constitutional: Appearance: She is well-developed. Comments: Thin, frail HENT: Head: Normocephalic and atraumatic. Nose: No mucosal edema. Mouth/Throat: Mouth: Mucous membranes are dry. Neck: Vascular: No JVD. Cardiovascular: Rate and Rhythm: Normal rate. Rhythm irregular. No extrasystoles are present. Heart sounds: S1 normal and S2 normal. Murmur heard. Pulmonary: Effort: Pulmonary effort is normal. No respiratory distress. Breath sounds: Normal breath sounds. No wheezing or rales. Abdominal: General: Bowel sounds are normal. There is no distension. Palpations: Abdomen is soft. Tenderness: There is no abdominal tenderness. Musculoskeletal: Cervical back: Neck supple. Right lower leg: No edema. Left lower leg: No edema. Skin: General: Skin is warm and dry. Neurological: Mental Status: She is alert and oriented to person, place, and time. Psychiatric: Behavior: Behavior normal. Thought Content: Thought content normal. Lab/Radiology/Diagnostic Review: Recent Labs Lab 10/30/21 1155 10/31/21 0714 11/02/21 0637 11/03/21 0649 11/04/21 0811 WBC -- < > 5.1 4.8 4.7 RBC -- < > 2.39* 2.57* 2.54* HGB -- < > 7.5* 7.9* 7.9* HCT -- < > 24.9* 26.5* 26.3* NA -- < > 141 143 142 K -- < > 4.7 4.5 4.5 CL -- < > 111* 113* 109* CO2 -- < > 31.3 29.5 31.0 AGAP -- < > NOT CALCULATED 0.5* 2.0* BUN -- < > 19* 22* 21* CR -- < > 1.15* 1.11* 1.09* BUNCREATININ -- < > 16.5 19.8 19.3 GLU -- < > 76 75 74 CA -- < > 9.8 10.3* 10.2* TP -- < > 5.3* 5.5* 5.5* ALB -- < > 2.3* 2.4* 2.4* TBIL -- < > 0.4 0.4 0.4 ALKP -- < > 82 82 86 AST -- < > 19 20 21 ALT -- < > 23 25 24 TSH <0.005* -- -- -- -- < > = values in this interval not displayed. Recent Labs Lab 10/30/21 1155 TROP 18 Recent Labs Lab 11/02/21 0637 11/03/21 0649 11/04/21 0811 INR 2.6 2.2 2.4 No results for input(s): CHOL, TRI, HDL, LDL in the last 168 hours. Tele: AF, stable vent rate I spent 25 minutes today reviewing the patient's medical record, obtaining history, performing an exam, ordering medications, tests, and/or procedures, documenting in the medical record, referring and/or communicating with other health care providers, counseling, and educating the patient/family/caregiver, reviewing and communicating test results, and coordination of care. KAYCEE AMIN NP Cosigned by Tere Cedillo MD at 11/04/2021 12:18 PM CDT * Sharon Avelar RN - 11/03/2021 10:12 PM CDT Problem: Reduced risk for falls/injury Goal: [...] and interventions as needed. Outcome: Progressing Problem: Mobility Goal: STG - Pt will ambulate Outcome: Progressing Goal: STG - Pt will ascend/descend stairs Outcome: Progressing Problem: Grooming Goal: STG - Pt will complete grooming while standing sink/tableside with Description: SBS/MOD I Outcome: Progressing Problem: Toileting Goal: STG - Pt will complete management (up/down) with Description: SBS/MOD I WITH WW Outcome: Progressing Problem: Transfers Goal: STG - Pt will perform a toilet transfer with Description: SBS/MOD I Outcome: Progressing * Jayy Jo MD - 11/03/2021 5:38 PM CDT Hospitalist Daily Progress Note Patient: Ana Maria Bobo (:1945) Room: [place] [address] Date of admission: 10/22/2021 No of days in hospital: 12 Subjective Interval Hx: Patient still has TORRES. She had an episode of nausea and vomiting today. She denied CP. Net I/O/24 hours was -1.1 L Objective Filed Vitals: 11/03/21 0434 11/03/21 0731 11/03/21 1119 11/03/21 1534 BP: 115/57 97/39 122/59 115/69 Pulse: 92 91 84 80 Resp: 16 Temp: 98.1 ??F (36.7 ??C) 98.7 ??F (37.1 ??C) TempSrc: Oral Oral Oral SpO2: 100% 97% 100% 99% Weight: Height: Physical Exam: Gen: Alert, cooperative, no distress Head: Normocephalic, without obvious abnormality, atraumatic Eyes: Conjunctivae/corneas clear, EOMI Nose: Mucosa normal. No drainage. Throat:Moist mucous membranes, Neck: trachea midline Resp: Diminished lung sounds, no wheezes/rhonchi CV Irregularly irregular , S1S2 Abd: S/NT/ND, BS+, no bruits Ext: No clubbing, cyanosis, +1 LE edema Skin: Skin color, texture, turgor normal. No rashes or lesions Neuro: No focal deficits Intake/Output 24H Total: Intake/Output Summary (Last 24 hours) at 11/03/2021 1738 Last data filed at 11/03/2021 1332 Gross per 24 hour Intake 480 ml Output 1500 ml Net -1020 ml Medication ??? furosemide 60 mg Intravenous BID ??? gabapentin 300 mg Oral BID ??? lidocaine 1 patch Transdermal Q24H ??? lisinopril 2.5 mg Oral Daily ??? methIMAzole 5 mg Oral Daily ??? metoprolol tartrate 12.5 mg Oral BID ??? morphine 1 mg Intravenous Once ??? pantoprazole EC 20 mg Oral Daily ??? senna-docusate 1 tablet Oral Nightly at bedtime ??? venlafaxine XR 150 mg Oral Daily with breakfast ??? warfarin (COUMADIN) pharmacy to dose Oral See Admin Instructions ??? warfarin 4 mg Oral Once PRN Meds: acetaminophen, albuterol sulfate HFA, ALPRAZolam, calcium carbonate, dextrose 10 % bolus,glucagon, glucose, HYDROcodone-acetaminophen, tpyxhptip-ybyuntxs-fhdtavcosho, naLOXone, nitroglycerin, ondansetron, polyethylene glycol Labs: Recent Labs Lab 10/28/21 0805 10/29/21 0704 10/30/21 0659 10/31/21 0714 11/01/21 0728 11/02/21 0637 11/03/21 0649 WBC 4.5 4.7 4.4* 5.3 4.4* 5.1 4.8 RBC 2.49* 2.63* 2.44* 2.45* 2.50* 2.39* 2.57* HGB 7.6* 8.2* 7.5* 7.5* 7.9* 7.5* 7.9* HCT 26.2* 28.3* 25.8* 26.0* 26.1* 24.9* 26.5* MCV 105.2* 107.6* 105.7* 106.1* 104.4* 104.2* 103.1* MCH 30.5 31.2* 30.7 30.6 31.6* 31.4* 30.7 MCHC 29.0* 29.0* 29.1* 28.8* 30.3* 30.1* 29.8* PLT 162 142 171 174 185 177 188 RDW 12.1 12.4 12.2 12.3 12.2 12.2 12.5 MPV 13.6* 13.7* 13.1* 13.1* 13.3* 12.4* 13.2* PERNEU 60.1 59.1 55.7 61.6 54.4 54.3 52.8 PERLYM 17.4 17.5 20.2 17.6 22.3 21.8 23.4 PERMON 17.2 17.7 17.7 15.3 17.3 17.0 17.6 LYMC 0.78* 0.83* 0.89* 0.93* 0.99* 1.12 1.13 MONOC 0.77 0.84 0.78 0.81 0.77 0.87* 0.85 EOSC 0.19 0.20 0.21 0.24 0.21 0.28 0.24 BASOC 0.04 0.05 0.05 0.04 0.05 0.05 0.05 DTYPE AUTOMATED DIFFERENTIAL AUTOMATED DIFFERENTIAL AUTOMATED DIFFERENTIAL AUTOMATED DIFFERENTIAL AUTOMATED DIFFERENTIAL AUTOMATED DIFFERENTIAL AUTOMATED DIFFERENTIAL Recent Labs Lab 10/28/21 1922 10/29/21 0704 10/30/21 0659 10/31/21 0714 11/01/21 0728 11/02/21 0637 11/03/21 0649 NA 141 144 142 143 143 141 143 K 5.2* 5.2* 5.0 4.9 4.8 4.7 4.5 CL 113* 115* 115* 115* 115* 111* 113* CO2 26.9 25.8 25.0 25.9 26.4 31.3 29.5 AGAP 1.1* 3.2* 2.0* 2.1* 1.6* NOT CALCULATED 0.5* BUN 19* 17 16 15 16 19* 22* CR 1.10* 0.93 1.03* 0.99 1.02 1.15* 1.11* BUNCREATININ 17.3 18.4 15.5 15.1 15.7 16.5 19.8 GLU 136* 95 81 83 94 76 75 CA 9.6 10.1 9.8 9.9 9.8 9.8 10.3* TP 5.6* 5.8* 5.4* 5.3* 5.5* 5.3* 5.5* ALB 2.3* 2.5* 2.3* 2.4* 2.4* 2.3* 2.4* TBIL 0.3 0.4 0.4 0.3 0.4 0.4 0.4 ALKP 86 86 82 81 79 82 82 AST 22 25 25 21 23 19 20 ALT 23 25 25 23 24 23 25 Recent Labs Lab 10/30/21 1155 TSH <0.005* Recent Labs Lab 11/01/21 0728 11/02/21 0637 11/03/21 0649 INR 3.0 2.6 2.2 Recent Labs Lab 10/30/21 1155 TROP 18 No results for input(s): LACTICACID, PROCT in the last 168 hours. No results for input(s): PH, PCO2, PO2, [id number], BICARBWB, BASEDEFICIT, BASEEXCESS in the [id number] hours. No results found for this or any previous visit. Imaging CT ABD+PEL WO CON Result Date: 10/27/2021 EXAMINATION: CT Abdomen and Pelvis without contrast EXAM DATE/TIME: :01 AM REASON FOR EXAM: Abdominal pain, acute, nonlocalized COMPARISON: 09/17/2021 CT abdomen and pelvis TECHNIQUE: Axial CT images of the abdomen and pelvis are obtained without the use of IV contrast agent. Subsequent coronal and sagittal reformatted sequences are created for evaluation. A dose lo wering technique was used for this procedure, which may include, but is not limited to, dose reduction technique, automated exposure control, iterative reconstruction, ALARA (As Low As Reasonably Achievable), or Image Gently techniques. FINDINGS: Small right and tiny left pleural effusions. Breathing motion artifact in the lung bases. No convincing pulmonary nodules or masses. Heart size enlarged. Coronary artery calcifications. No pericardial effusion. Low-density blood pool suggestive of anemia. The liver and spleen are normal in size and contour. Fatty atrophy of the pancreas. Gallbladder and adrenal glands grossly unremarkable on this noncontrast study. Small area of calcifications overthe anterior right hepatic lobe similar to prior exam. This may be an area of old healed trauma or hemorrhage. Soft tissue density area of nodularity near the gallbladder fundus. This is similar in size to the prior exam. No hydronephrosis or obstructive uropathy on either side. Abdominal aorta normal in caliber throughout with extensive calcifications. Bowel is normal in caliber throughout. No evidence of bowel obstruction. No free fluid in the pelvis. Bladder contours grossly unremarkable. Bladder is decompressed. Atrophic or postsurgical uterus. The appendix is normal. Mild scattered diverticular disease. Short segment length of sigmoid colon with diffuse wall thickening and minimal surrounding inflammatory stranding. This is slightly worsened from prior study. No evidence of perforation or abscess formation within limitations of this noncontrast exam. This could represent acute diverticulitis. Neoplasm is not entirely excluded. Multilevel degenerative changes in the thoracolumbar s pine with no convincing acute osseous abnormality. ===== IMPRESSION: ===== 1. Length of sigmoid colon in the mid pelvis with diffuse wall thickening and surrounding inflammatory stranding mildly worsened from comparison exam. No perforation or abscess formation identified within limits of this noncontrast exam. Acute diverticulitis is favored. Underlyingneoplasm not excluded. Follow-up recommended to ensure resolution. 2. Focal nodularity in the gallbladder wall is indeterminate but concerning for neoplasm. Follow-up nonemergent right upper quadrantultrasound recommended if not previously obtained elsewhere. 3. Small right and tiny left pleural effusions 4. Coronary artery calcifications and atherosclerotic aorta 5. Low-density blood pool raises suspicion for anemia Referred By: Interpreted By: Quoc Wilkinson MD, 10/27/2021 9:20 AM CTA CHEST Result Date: 10/15/2021 Examination: CTA CHEST Clinical history: Chest pain Comparison: X-ray, same date DATE/TIME: 10/15/2021 5:13 PM Technique: Multiplanar images of the chest were obtained following the uneventful intravenous administration of 80 mL Isovue 370. 3D Post-processed images were reconstructed on an independent workstation. A dose lowering technique was used for this procedure, which may include, but is not limited to, dose reduction technique, automated exposure control, the use of iterative reconstruction, and ALARA (As Low As Reasonably Achievable) / Image Gently techniques. Findings: There is adequate pulmonary artery opacification. No evidence of pulmonary embolism. Mild to moderate cardiomegaly. Aortic valve prosthesis. Coronary artery calcifications. No pericardial effusion. Thoracic aorta is normal caliber. No mediastinal or hilar lymphadenopathy. No evidence of pneumonia or pulmonary edema. No pleural effusion or pneumothorax. Thoracic compression deformity of T6 with 75% anterior heightloss, appearing chronic. There is minimal retropulsion into the spinal canal with Mild spinal canal narrowing. Sternotomy. Thoracic spondylosis. IMPRESSION: 1. No evidence of pulmonary embolism or other acute findings. 2. Cardiomegaly. 3. Otherchronic or nonurgent findings as described above. Referred By: Interpreted By: Estevan Martines MD, 10/15/2021 5:52 PM CTA HEAD Result Date: 10/23/2021 DATE: 10/22/2021 12:37 PM INDICATION: Right MCA aneurysm. EXAMINATION: CT angiography of the head. TECHNIQUE: CT angiography of the head was performed after uneventful intravenous administration of 80mL IOPAMIDOL 76 % IV SOLN. CT dose reduction techniques were utilized. Axial and 3-D/MIP images were reconstructed and reviewed. Additional 3-D reconstructions and/or postprocessing were performed on a separate dedicated 3-D workstation. A dose lowering technique was used for this procedure, which may include, but is not limited to, dose reduction technique, automated exposure control, the use of iterative reconstruction, and ALARA (As Low As Reasonably Achievable) / Image Gently techniques. COMPARISON: Report from catheter angiography performed 08/10/2020, images not available for direct comparison. FINDINGS: CTA HEAD: There is a 3-4 mm vascular outpouching at the right MCA bifurcation, corresponding to patient's known right MCA aneurysm. Scattered atherosclerotic calcifications seen along t he cavernous and supraclinoid ICA segments, but with less than 50% narrowing suggested. Left BARRIE [id number] is developmentally hypoplastic. Anterior communicating artery is patent. Otherwise the proximal portions of the anterior and middle cerebral arteries are patent. Atherosclerotic calcifications seen along the vertebral artery V4 segments, without significant narrowing. Basilar artery patent to the terminus. 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 Proximal portions of the posterior cerebral arteries, superior cerebellar arteries, and PICA branches are patent. Right posterior communicating artery not well- visualized. SOFTTISSUES: Small vessel disease and volume loss. Bilateral lens replacements. IMPRESSION: 1. 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 Similar findings described on prior catheter angiography examination 08/10/2020, though no images are available for direct comparison. Ordered By: SULEMAN WEBSTER Interpreted By: Dale Brush MD, 10/23/2021 9:21 AM USV NEGRITA DUPLEX LOW EXT RT Result Date: 10/21/2021 VENOUS DUPLEX IMAGING RIGHT LOWER EXTREMITY VASCULAR LAB Pat.Name: ANA MARIA BOBO HANNA Pat.ID: [id number] .Date: 10/15/2021 Exam Time: 4:09:00 PM Study Type:TOYA VS Venous Duplex Leg Rt Age: 3 1945,76Y Sex: FEMALE Sonogrphr: Diana Bronson RVT Pat. Stat.:Outpatient Room: ER History / Clinical:Chest pain. Calf injury, redness, edema. PMH, cad, dm, htn, ckd, hld, copd Procedures: Carrillo scale, Color Doppler imaging, Doppler Spectral Analysis Race: W ++++++++++++++++++++++++++++++++++++ SUMMARY: ++++++++++++++++++++++++++++++++++++ Right leg: There are NO apparent, deep or superficial vein, ACUTE character venous filling defects visualized in the femoral, popliteal, deep calf or proximal saphenous veins. Resting venous flow is normal phasic proximally. No valve reflux with compression maneuvers is detected in the femoral and popliteal veins. Left leg LIMITED: Resting venous flow isnormal phasic at the common femoral. No valve reflux with compression maneuvers is detected in the common femoral vein. CONCLUSION: Normal study right lower extremity, with no evidence of acute deep or superficial vein thrombosis. There is no significant reflux detected. ++++++++++++++++++++++++++++++++++++ FINDINGS: ++++++++++++++++++++++++++++++++++++ Signed 10/21/2021 12:57 PM José Kaiser M.D. XR CHEST PA+LAT Result Date: 11/01/2021 EXAMINATION: PA AND LATERAL CHEST Exam date/time: 11/01/2021 8:15 AM Reason For Exam: Shortness of breath and congestive heart failure Comparison: 10/22/2021 Technique: 2 views. Findings: Cardiomegaly. Small bilateral pleural effusions with associated atelectasis. Pulmonary venous congestion, possibly mild edema. Overall, stable. No pneumothorax. ===== IMPRESSION:===== Small bilateral pleural effusions with associated atelectasis. Pulmonary venous congestion, possibly mild edema. Overall, stable. Referred By: Interpreted By: Jarvis Munoz MD, 11/01/2021 8:18 AM XR CHEST PA+LAT Result Date: 10/19/2021 Examination: Chest x-ray 2 view Exam Date/Time: 10/19/2021 7:00 AM Reason For Exam: chf Comparison: 10/15/2021 chest radiograph Technique: PA and lateral views of the chest were obtained. Findings: Heart size prominent but stable from prior study. Post sternotomy changes again seen including fractured wires. Atherosclerotic aorta. Increased AP dimensional airspace and flattening of diaphragms. Pulmonary vascularity stable from prior study. Interval worsening of opacities at the lung bases more so on the left obscuring diaphragm shadow on frontal view. Upper lungs clear. ======== IMPRESSION: ======== 1. Developing opacity at the anterior left lung base may be infiltrate or atelectasis. Stable interval appearance of the chest otherwise. Referred By: Interpreted By: Quoc Wilkinson MD, 10/19/2021 7:10 AM XR CHEST PORTABLE Result Date: 10/22/2021 Exam: Chest x-ray Comparison 10/19/2021 INDICATION: Recent hospital discharge for pneumonia. Dyspnea. TECHNIQUE: One view FINDINGS: The heart is enlarged. Median sternotomy and valve replacement. Central pulmonary vessels are partially obscured but are within normal limits for size. The right lung is clear. Indistinctness of the left lung base and hemidiaphragm. Uncertain significance with portable technique and superimposed soft tissues. There could be a component of lung opacification or smallpleural effusion present. No substantial change from the prior exam allowing for differences in patient positioning. The remainder of the left lung is clear. IMPRESSION: 1. Enlarged heart. 2. Artifact versus some mild increased density in the left lung base. Referred By: Interpreted By: Neel Basurto MD, 10/22/2021 6:20 PM XR CHEST PORTABLE Result Date: 10/15/2021 Examination: Chest 1 view portable History: Chest pain DATE/TIME: 10/15/2021 1:17 PM Comparison: NoneTechnique: AP upright portable view of the chest was obtained. Findings: Sternotomy. Heart size andmediastinal contours are normal. Borderline pulmonary vasculature. No pulmonary consolidation, pleural effusion or pneumothorax. No acute osseous abnormality. Old left clavicle fracture. Impression: 1. No acute infiltrate. 2. Borderline vascular congestion. Referred By: Interpreted By: Estevan Martines MD, 10/15/2021 1:[address] CHEST WO CON Result Date: 10/25/2021 EXAMINATION: CT Chest without contrast EXAM DATE/TIME: 10/25/2021 8:24 AM REASON FOR EXAM: 76 female. 'LLL pneumonia vs effusion? Pneumonia, effusion or abscess suspected, xray done' COMPARISON: Chest x-ray 10/22/2021; CT chest 10/15/2021 TECHNIQUE: Computed tomography of the chest was obtained without administration of intravenous contrast. A dose lowering technique was used for this procedure, which may include, but is not limited to, dose reduction technique, automated exposure control, the use of iterative reconstruction, and ALARA (As Low As Reasonably Achievable) / Image Gently techniques. FINDINGS: Stable mild/moderate four-chamber cardiomegaly. Slightly decreased attenuation cardiac blood pool suggesting anemia. Sequela of prior cardiac surgery with sternotomy changes. Replaced aortic valve. Coronary artery disease. No pericardial effusion. The moderate thoracic aortic atherosclerosis. Normal diameter. No overt central pulmonary arterial enlargement. No supra clavicular adenopathy. Borderline mediastinal precarinal lymph node measures 1 cm in short axis axis. No other potential adenopathy in the chest. Trace nondrainable right pleural fluid; even less equivocal trace left pleural fluid. The slight diaphragmatic eventration. Stable wedge-shaped left lower lobe anterior basal segment suspected subsegmental atelectasis in addition mild dependent subsegmental atelectasis at the lung bases. Few other nonspecific minimal streaky linear densities. Scattered areas of subtle interlobular septal thickening anterior upper lobes and lung bases may represent element of fluid overload. No confluent consolidation, focal pulmonary nodule or mass. Central and distal airways are clear. No thickening or mucous plugging seen. Unenhanced images of the upper abdomen show nonspecific hepatomegaly. Midthoracic vertebral body severe compression deformity. Multileveldegenerative spondylosis and 1 demineralization. No concerning focal lytic or blastic lesion seen. IMPRESSION:===== 1. Stable four-chamber cardiomegaly with mild anemia. 2. Trace nondrainable dependent left pleural effusion and even less equivocal trace left pleural fluid. 3. Stable focal left lower lobe anterior basal subsegmental atelectasis and minimal dependent subsegmental atelectasis. 4. Scattered subtle interlobular septal thickening may indicate an element of fluid overload. 5. No other acute or chronic significant airspace or airway finding. 6. Other nonemergent, incidental, stable and potential chronic findings as discussed in the report body above. Ordered By: SULEMAN DUEÑAS Interpreted By: Rangel Dominguez MD, 10/25 8:38 AM NM PHARM NUC STRESS TEST 1DAY Result Date: 10/31/2021 Myocardial Perfusion Imaging Pat.Name: ANA MARIA BOBO Pat.ID: [id number] St.Date: 10/31/2021efceferino.MD: Zoey Ricks [id number] Exam Time: 8:30:00 AM Study Type:TOYA NC HT MUSCLE IMAGE SPECT MULTI Height: 64in Weight: 192lb BSA: 1.92 m2 Age: 3 1945,76Y Sex: FEMALE Sonogrphr: IZAIAH Prescott Pat. Stat.:Inpatient Reason for Study: Chest pain, Evaluation of known CAD, Congestive heart failure, Atrial flutter History / Clinical: Atrial fibrillation, Diabetes, Dyslipidemia, Hypertension, Sleep Apnea Procedures: Nuclear Stress Test with Lexiscan Race: W Surgery: Echocardiogram,Aortic Valve Replacement ++++++++++++++++++++++++++++++++++++ SUMMARY: ++++++++++++++++++++++++++++++++++++ Stress conclusion: 1. Clinically negative. 2. Electrocardiographically [...] overall low risk for a cardiac event. ++++++++++++++++++++++++++++++++++++ FINDINGS: ++++++++++++++++++++++++++++++++++++ Protocol: Lexiscan 0.4mg was given as a rapid injection IV over a period of 10 seconds with the radiopharmaceutical injected at 20 seconds. The images were processed using the standard SPECT technique. A gated study was performed on the stress images. Impression: SPECT images demonstrate normal perfusion of normal intensity. Heart Size: The left ventricle is normal. LV Wall Motion: The LVEF is calculated to be 51%. Gated SPECT images abnormal normalwall motion due to Left bundle branch block. Gated SPECT images reveal global hypokinesis. Transient Ischemic Dilatation: The TID is 1.04. There is no evidence of Transient Ischemic Dilatation. +++++ +++++++++++++++++++++++++++++++ STRESS: ++++++++++++++++++++++++++++++++++++ Baseline Vital Signs: Intervention Regadenoson ECG Atrial Fibrillation, Left bundle branch blockPeak Dose 0.4 mg HR 82 Atropine 0 Rest BP 139/64 Stress Test Results: Max. HR 127 Pred. Max. Heart Rate (100%) 143 % Target: 89 % Max BP 147/60 O2 Sat 100 % Max RPP 66102 Symptoms and Complications: Terminated Protocol completed Symptoms Chest pain, Dizziness, Headache, Nausea Complications None Stress ECG Interp Atrial Fibrillation, Left bundle branch block Signed 10/31/2021 01:50 PM Tere Cedillo M.D. MRI BRAIN WO CON Result Date: 10/25/2021 EXAMINATION: MRI BRAIN WO CON, 10/25/2021 10:53 PM TECHNIQUE: Axial and sagittal T1, axial T2, axialDWI, axial and sagittal T2 FLAIR, as well [...] (best seen on series 8 image 10), b elaine characterized on prior CT head examination from 10/22/2021. The proximal intracranial arterialflow voids otherwise have a normal appearance. Prior bilateral ocular lens extractions with prosthetic lens implantation. The orbital contents otherwise appear within normal limits. The paranasal sinuses and mastoid air cells are well aerated. IMPRESSION: 1. No acute intracranial abnormality. 2. Moderate global cerebral volume loss and mild to moderate chronic small vessel ischemic change. 3. Redemonstrated right MCA bifurcation saccular aneurysm, similar to the prior CT head examination from 10/22/2021. Referred By: Electronically SignedBy: José Almeida MD on 10/25/2021 10:58 PM Interpreted By: José Almeida MD, 10/25/2021 10:52 PM USE ECHOCARDIOGRAM W CON Result Date: 10/16/2021 Echocardiography Report Pat.Name: ANA MARIA BOBO Pat.ID: [id number] St.Date: 10/16/2021 Exam Time: 3:01:00 PM Study Type:ECHO WITH CARDIAC DOPPLER COMP Height: 64in Weight: 183.62lb BSA: 1.89 m2 Age: 3 1945,76Y Sex: FEMALE BP: 115/57 HR: 91 bpm Sonogrphr: Becky Martel [facility] Pat. Stat. :Inpatient Room: [facility] Reason for Study: Aortic valve replacement, Congestive heart failure, Dyspnea on exertion, Murmur History / Clinical: Chest pain. Calf injury, redness, edema. PMH, cad, dm, htn, ckd, hld, copd Procedures: 2D, M- mode, Doppler, Color Flow, Definity was used to enhance endocardial definition., The study quality is technically difficult. Race: W ++++++++++++++++++++++++++++++++++++ SUMMARY: ++++++++++++++++++++++++++++++++++++ The left ventricular size is normal. Estimated left ventricular ejection fraction is 40-45%. Moderate concentric left ventricular hypertrophy. Left ventricular diastolic function is abnormal (grade 2 - pseudonormal pattern). ?Moderate global hypokinesis is noted. The right ventricular size is normal. Right ventricular systolic function is moderately depressed. A mechanical valve is in the aortic position with post-deployment peak velocity of 3.53m/sec, mean gradient of 31mmHg and a calculated YADIRA of 1.10cm2. Right ventricular systolic pressure is 40-50 mmHg suggestive of mild to moderate pulmonary hypertension. Mild to moderate tricuspid regurgitation. Moderate mitral regurgitation. ++++++++++++++++++++++++++++++++++++ FINDINGS: ++++++++++++++++++++++++++++++++++++ LV: The left ventricular size is normal. Estimated left ventricular ejection fraction is 40-45%. Moderate concentric left ventricular hypertrophy. Left ventricular diastolic function is abnormal (grade 2 - pseudonormal pattern). WM: Moderate global hypokinesis is noted.RV: The right ventricular size is normal. Right ventricular systolic function is moderately depressed. IVS: No evidence of ventricular septal defect. LA: The left atrial size is mildly enlarged. The left atrial volume is mildly increased (34- 41ml/M2). RA: Right atrial size is mildly enlarged. IAS: Atrial septum appears intact. DENICE: No evidence of pericardial effusion. AO: Normal aortic root. PA: Estimated right atrial pressure of 15 mmHg. SVn: Inferior vena cava is mildly enlarged. Inferior vena cava shows <50% collapse with respiration consistent with elevated right atrial pressure. AV: Mechanical prosthetic aortic valve seen. A trace of denice-prosthetic aortic valve regurgitation. A mechanical valve is in the aortic position with post-deployment peak velocity of 3.53m/sec, mean gradient of 31mmHg and a calculated YADIRA of 1.10cm2. MV: Moderate mitral regurgitation. No evidence of mitral stenosis. PV: No evidence of pulmonic valve stenosis. Mild pulmonic regurgitation. TV: Mild to moderate tricuspid regurgitation. Right ventricular systolic pressure is 40-50 mmHg suggestive of mild to moderate pulmonary hypertension. No evidence of tricuspid valve stenosis. ++++++++++++++++++++++++++++++++++++ MEASUREMENTS: ++++++++++++++++++++++++++++++++++++ DOPPLER LVOT LVOTpkPG 8 mmHg LVOTmnPG 4 mmHg LVOTpkVel 141 cm/s (70-110)+* LVOT SV 83 ml LVOT TVI 26.3 cm Right Atrium RA Press 15mmHg Ayala's Disk 20 AV Forward Flow AV TVI 51.2 cm AV pkPG 37 mmHg AV pkVel 305 cm/s (100-170)+*Area (TVI) 1.61 cm2 (3-5)* AV mnPG 21 mmHg Area (Randall) 1.45 cm2 (3-5)* AV Regurg Flow AV pkVel 381 cm/s AV P1/2t 290 ms AV pkPG 58 mmHg MV Forward Flow MV DeTm 257 ms MV pkPG 9 mmHg MV mnPG 3 mmHg MVpkE 134 cm/s (60-130)+* PV Forward Flow PV pkVel 96.4 cm/s (60-90)* PV AC 109 ms PV pkPG 4 mmHg TV Regurg Flow TV pkPG 26 mmHg TV pkVel 253 cm/s (30-70)+* Right Ventricle RVsys P 41 mmHg Right Ventricle 5.32 cm/s Lat E' Lat e 7.2 cm/s Lat E/E' Lat E/e 18.6 Med E' Med e 4.94 cm/s Med E/E' Med E/e 27.1 Aortic Valve Aortic Valve Ar 0.85 Aortic Valve Ve 0.46 PV Antegrade Flow Acceleration Sl 573 cm/s2 TAPSE Distance 8 mm 2D Left Ventricle LVIDd 4.8 cm (3.6-5.2)+ LV ESV 52.6 ml LVIDs 3.63 cm (2.3-3.9)+ LV ESV 46.2 ml LngAxd 7.03 cm LVESV BP 50.5 ml LngAxd 7.4 cm LV EF 36.1 % LV EDV 82.2 ml LV EF42.7 % LV EDV 80.4 ml LV EF BP 38.7 % LVEDV BP 82.4 ml LV SV 29.6 ml LngAxs 6.96 cm LV SV 34.4 ml LngAxs 7.36 cm LV SV BP 31.9 ml LVPW LVPWd 1.36 cm Ventricular Septum IVSd 1.32 cm Left Atrium LA VOLBP 72.9 ml Aorta Ao Rtd 2.4 cm LVOT LVOT 2 cm LVOTArea 3.14 cm2 Ratios IVS LA Biplane LAVol I BP 38.6 ml/m2 RA Single Plane Right Atrium MO 13.4 mm Right Atrium Sy 51.1 ml Right Atrium Sy 64.4 mm Right Atrium Sy 27 ml/m2 Right Atrium Sy 20 cm2 Right Ventricle Right Ventricle 27 mm Right Ventricle 3 2.8 mm [facility] 77.7 mm Signed 10/16/2021 06:42 PM Tere Cedillo M.D. EKG: Results for orders placed or performed during the hospital encounter of 10/22/21 ECG 12 lead Narrative [facility] [address] Test Date: 2021-10-22 Pat Name: ANA MARIA BOBO Department: 41 Room: B443 Gender: Female Credit Report Checker: : 1945 Requested By: SANJANA BATES Order Number: [id number] Reading MD: Sanjana Ludwig Measurements Intervals [place] Rate: 86 P: MS: 0 QRS: -37 QRSD: 160 T: 98 QT: 411 QTc: 494 Interpretive Statements ATRIAL FIBRILLATION LEFT AXIS DEVIATION [QRS AXIS < -30] LEFT BUNDLE BRANCH BLOCK [120+ ms QRS DURATION, 80+ ms Q/S IN V1/V2, 85+ ms R IN I/aVL/V5/V6] Compared to ECG 10/15/2021 17:09:13 Left-axis deviation now present ECG 12 lead Narrative [facility] [address] Test Date: 2021-10-28 Pat Name: ANA MARIA BOBO Department: 40 Room: [id number] Gender: Female Credit Report Checker: : 1945 Requested By: ASHU DENG Order Number: [id number] Reading MD: Tere Cedillo Measurements Intervals [place] Rate: 94 P: MS: 0 QRS: -39 QRSD: 159 T: 89 QT: 365 QTc: 458 Interpretive Statements ATRIAL FIBRILLATION LEFT BUNDLE BRANCH BLOCK [120+ ms QRS DURATION, 80+ ms Q/S IN V1/V2, 85+ ms R IN I/aVL/V5/V6] Compared to ECG 10/22/2021 18:11:32 No significant changes ECG 12 lead Narrative [facility] [address] Test Date: 2021-10-30 Pat Name: ANA MARIA BOBO Department: 40 Room: [id number] Gender: Female Credit Report Checker: : 1945 Requested By: ASHU DENG Order Number: [id number] Reading MD: Tere Cedillo Measurements Intervals [place] Rate: 88 P: MS: 0 QRS: -26 QRSD: 158 T: 116 QT: 380 QTc: 462 Interpretive Statements ATRIAL FIBRILLATION LEFT BUNDLE BRANCH BLOCK [120+ ms QRS DURATION, 80+ ms Q/S IN V1/V2, 85+ ms R IN I/aVL/V5/V6] Compared to ECG 10/28/2021 18:07:07 Left-axis deviation no longer present Assessment/Plan: OLIVE (acute kidney injury) (CMS/HCC) Acute on chronic heart failure reduced ejection fraction pBNP 14,562 CXR 11/01: Small bilateral pleural effusions. 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 11/02 cont with IV lasix 60 mg BID. Net I/O/24 hours with -1.04 L 11/03 cont with IV lasix 60 mg BID. Net I/O/24 hours was -1.1 L. Possible transition to PO tomorrow NSVT 10/28 patient had 9 beat run of Vtach, asymptomatic F/u EKG, electrolytes C/w BB telemetry ?? Acute diverticulitis: resolved F/u CT abd/pelvis revealed acute diverticulitis Completed 6 days of cefoxitin IV ?? Hypotension Suspect over diuresis and poor oral intake [...] hold 10/31 improving BP, stable Resolved ?? NSTEMI Cardiology consulted Start ASA 81 mg per cardiology Telemetry Stress test: no ischemia ?? Acute on chronic renal failure Initially suspect seconday to hypotension, possible diuresis and reduced oral intake. She is s/p 2 L normal saline in the ED Now being diuresed for acute on chronic CHF as above Resolving ?? Possible CAP Patient afebrile no leukocytosis Pulm consulted Sputum culture: normal betty Antibiotics discontinued per pulmonology ?? Acute hypoxic respiratory failure: Secondary to the above patient continues to be maintained on 2 L nasal cannula 1 L while sleeping Patient also found to have respiratory acidosis Started BiPAP, now dc'd Pulm consulted Less concerning for PNA-stop abx Monitor with IV diuresis Improving- on 2L NC, wean as tolerated ?? A. fib currently rate controlled Sroke risk reduction with Coumadin Continue BB INR goal 2.5-3.5 for mechanical valve, pharmacy to dose. ?? Hyperlipidemia Continue statin ?? Hyperthyroidism Continue methimazole follow-up PCP Consider endocrinology referral ?? GERD Continue PPI ?? Anemia No signs of active bleeding Monitor CBC ?? Right MCA aneurysm Noted on CTA Also noted per radiology on prior imaging, though direct comparison not available Neurology consulted MRI brain: Redemonstrated right MCA bifurcation saccular aneurysm, similar to the prior CT head examination from 10/22/2021 EEG normal Close follow up after discharge ?? Abnormal abdominal imaging Length of sigmoid colon [...] elsewhere. Close outpatient follow up for further imaging ? - DVT prophylaxis:??Coumadin - Diet/IVF:??Cardiac - Code status: Full code JAYY JO MD 11/03/2021 5:38 PM * Saranya Mixon RN - 11/03/2021 2:12 PM CDT Problem: Reduced risk for falls/injury Goal: Reduced Risk for Falls/Injury Outcome: Met This Shift Goal: Reduced Risk of Confusion (Acute vs Chronic) Outcome: Met This Shift Goal: Reduced Risk of Symptomatic Depression Outcome: Met This Shift Goal: Reduced Risk of Altered Elimination Outcome: Met This Shift Goal: Reduced Risk of Dizziness/Vertigo/Balance Outcome: Met This Shift Goal: Reduced Risk of Polypharmacy Outcome: Met This Shift Problem: Pain Goal: Patient's pain/discomfort is manageable Description: Assess and monitor patient's pain using appropriate pain scale. Collaborate with interdisciplinary team and initiate plan and interventions as ordered. Re-assess patient's pain level 30 - 60 minutes after pain management intervention. Outcome: Met This Shift Problem: Safety Goal: Patient will be injury [...] per policy, and non-skid footwear provided. Outcome: Met This Shift Problem: Daily Care Goal: Daily care needs are met Description: Assess and monitor ability to perform self care and identify potential discharge needs. Outcome: Met This Shift Problem: Psychosocial Needs Goal: Demonstrates ability to cope with hospitalization/illness Description: Assess and monitor patients ability to cope with his/her illness. Outcome: Met This Shift Goal: Collaborate with patient/family/caregiver to identify patient specific goals for this hospitalization Outcome: Met This Shift Problem: Discharge Barriers Goal: Patient's discharge needs are met Description: Collaborate with interdisciplinary team and initiate plans and interventions as needed. Outcome: Progressing * Johanny Cowart PharmD - 11/03/2021 12:16 PM CDT Warfarin Pharmacy to Dose Day #11 Ordering Provider: Dr. Bell Indication: Afib, Mechanical AVR Goal INR: 2.5-3.5 Home Dose: 5 mg daily Date Dose INR H/H/PLT 10/22 held 3.7 9.2/31.1/178 8/17 held 3.7 8.1/27.3/155 8/18 4 mg 3.1 8.1/26.9/152 8/19 5 mg 2.6 7.9/26.4/151 8/20 4 mg 3.2 7.7/25.8/147 8/21 held 4.3 8.1/27.3/166 8/22 4 mg 3.4 7.6/26.1/162 8/23 3 mg 3.3 8.2/28.3/142 8/24 1 mg 3.5 7.5/25.8/171 8/25 3 mg 3.1 7.5/26.0/174 8/ 2.5 mg 3.0 7.9/26.1/185 8/27 3 mg 2.6 7.5/24.9/177 8/28 2.2 7.9/26.5/188 Diet: Cardiac, low cholesterol (100% intake charted on 11/01) Interacting Medications: x A/P: Pt on home warfarin of 5 mg daily for Afib and mechanical AVR and is admitted with hypotension. 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 The INR decreased to 2.2 this morning. H/H/plt stable. No s/sx of bleeding per notes. Will increase dose slightly to 4 mg x1 tonight (realizing patient may not need this high of dosing going forward). Daily INRs are ordered. Pharmacy will continue to follow. Thank you for the consult. * Darell Grayson PA-C - 11/03/2021 8:09 AM CDT CARDIOLOGY PROGRESS NOTE Reason for follow up: CHF Primary camera mechanic: Ivette Hart following INTERVAL HISTORY No chest pain. Breathing is improving. DATA REVIEWED: TELEMETRY: afib Pharmacologic stress test done 10/31/2021. Clinically and electrocardiographically negative. Normalmyocardial perfusion SPECT imaging. Abnormal wall motion. EF 51%. ASSESSMENT: 1. Nonstemi. Normal myocardial perfusion SPECT imaging. No chest pain. Elevated troponin likely demand/type II VA. Ongoing RF modification. 2. Mechanical AVR. Continue warfarin. INR therapeutic. Goal INR 2.5-3.5. 3. Moderate MR. 4. Acute on chronic combined HF. Clinically improving. Continue to wean oxygen. REESTABLISH IV ACCESS. I/O -1.1L/24 hours. Cr stable. 5. Atrial fibrillation. Ventricular rate controlled. Continue low dose metoprolol tartrate. On warfarin. 6. Anemia. H/H stable. 7. Right MCA saccular aneurysm. Appears stable from previous imaging per radiology read. 8. Abn CT. Concern for neoplasm with non-urgent f/u imaging recommended PLAN: Continue IV diuresis today, possibly transition to PO tomorrow. Attempt to wean oxygen Reestablish IV access Patient Active Problem List Diagnosis Date Noted ??? OLIVE (acute kidney injury) ([facility]) 10/22/2021 ??? Care Management 07/29/2021 ??? Age-related osteoporosis with current pathological fracture 07/16/2021 ??? Anxiety 05/21/2021 ??? Metacarpal bone fracture 05/21/2021 ??? Mitral valve disorder 05/21/2021 ??? Purpura ([facility]) 05/21/2021 ??? Vision loss 05/21/2021 ??? COPD (chronic obstructive pulmonary disease) ([facility]) 05/21/2021 ??? Drug-induced constipation 05/21/2021 ??? On amiodarone therapy 05/21/2021 ??? Hematoma 12/13/2020 ??? Hyperlipidemia associated with type 2 diabetes mellitus ([facility]) 11/25/2020 ??? PVD (peripheral vascular disease) ([facility]) 11/25/2020 ??? Chest pain 11/22/2020 ??? Contusion of scalp 11/22/2020 ??? DVT prophylaxis 11/22/2020 ??? Knee pain 11/22/2020 ??? Localized, primary osteoarthritis 11/22/2020 ??? Osteoarthritis of knee 11/22/2020 ??? Traumatic closed displaced fracture of distal end of radius 11/22/2020 ??? Shoulder joint pain 11/22/2020 ??? Closed stable burst fracture of sixth thoracic vertebra, initial encounter ([facility]) 09/13/2020 ??? Disorder of skin of trunk 09/07/2020 ??? Cobalamin deficiency 09/07/2020 ??? Dysphagia 09/07/2020 ??? Type 2 diabetes mellitus with diabetic peripheral angiopathy without gangrene ([facility]) 09/07/2020 ??? Syncope, unspecified syncope type 09/07/2020 ??? Wrist joint pain 09/07/2020 ??? Respiratory illness 09/07/2020 ??? Requires lifelong warfarin therapy 09/07/2020 ??? Secondary hyperparathyroidism ([facility]) 09/07/2020 ??? Plantar fascial fibromatosis 09/07/2020 ??? Osteoporosis 09/07/2020 ??? Numbness 09/07/2020 ??? Muscle cramps 09/07/2020 ??? Atrial fibrillation with rapid ventricular response ([facility]) 08/22/2020 ??? Anemia 08/14/2020 Last Assessment & Plan: Continue ferrous sulfate 325 mg daily ??? Saccular aneurysm 08/14/2020 Last Assessment & Plan: Patient had stroke-like symptoms for 3 days, felt near syncopal and frontal headaches associated with un stable gait. MRI done showed no acute infarct. Moderate small vessel white matter chronic changes. Neurosurgery consulted. Recommended no intervention. Will continue to monitor ??? Depression 08/14/2020 Last Assessment & Plan: Continue venlafaxine 150 mg daily ??? Hyperlipidemia, unspecified hyperlipidemia type 08/14/2020 Last Assessment & Plan: Continue Lipitor 10 mg ??? Peripheral neuropathy 08/14/2020 Last Assessment & Plan: Gabapentin trended mg b.i.d. ??? Elevated troponin 08/09/2020 ??? Chronic bilateral low back pain without sciatica 02/03/2020 ??? Iron deficiency anemia, unspecified iron deficiency anemia type 02/03/2020 ??? Hypercalcemia 12/19/2019 ??? Chronic frontal sinusitis 12/19/2019 ??? Constipation, unspecified constipation type 12/19/2019 ??? Kidney dysfunction 11/21/2019 ??? Memory deficits 11/21/2019 ??? Hearing deficit, bilateral 11/21/2019 ??? History of cataract extraction, unspecified laterality 11/21/2019 ??? Vitamin D deficiency 11/21/2019 ??? Chronic renal disease, stage III ([facility]) 07/13/2019 ??? Vascular dementia ([facility]) 07/13/2019 ??? Senile purpura ([facility]) 07/13/2019 ??? Diarrhea 07/13/2019 ??? Peripheral angiopathy due to diabetes mellitus ([facility]) 07/13/2019 ??? Abnormal stress test 05/06/2019 ??? Bradycardia 05/06/2019 ??? Coronary artery disease involving pamunkey coronary artery of pamunkey heart without angina pectoris 05/06/2019 ??? Body mass index (BMI) 31.0-31.9, adult 03/22/2019 ??? Presence of prosthetic heart valve 02/23/2019 ??? LBBB (left bundle branch block) 12/08/2018 ??? Myopathy 02/17/2018 ??? Diastolic heart failure ([facility]) 10/08/2017 ??? Paroxysmal atrial flutter ([facility]) 08/12/2017 ??? Compression fracture of thoracic vertebra ([facility]) 06/30/2017 ??? Chronic anticoagulation 03/20/2017 ??? H/O mechanical aortic valve replacement 03/20/2017 ??? Kidney stone 02/03/2017 ??? Peripheral arterial occlusive disease ([facility]) 12/25/2016 ??? 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 Diverticular disease 10/12/2016 ??? Internal hemorrhoids 10/12/2016 ??? Diabetic polyneuropathy ([facility]) 09/17/2016 ??? Parathyroid adenoma 09/17/2016 ??? Disorder of rotator cuff 09/02/2016 ??? Gastroesophageal reflux disease without esophagitis 09/02/2016 ??? Polymyalgia rheumatica ([facility]) 09/02/2016 ??? Major depression single episode, in partial remission ([facility]) 09/02/2016 ??? Primary osteoarthritis involving multiple joints 09/02/2016 ??? H/O mechanical aortic valve replacement 09/02/2016 ??? Unknown and unspecified causes of morbidity 07/09/2016 Morbid obesity with BMI of 40.0-44.9, adult ??? Hypertensive heart disease with congestive heart failure ([facility]) 07/16/2015 Diastolic heart failure secondary to hypertension ??? VAZQUEZ (obstructive sleep apnea) 07/16/2015 VAZQUEZ on CPAP ??? Diabetes mellitus ([facility]) 08/15/2014 DM (diabetes mellitus) DM type 2 with diabetic dyslipidemia DM (diabetes mellitus) Last Assessment & Plan: A1c 7.4 in 2018. recheck level. Not on any med. ??? Dyspnea on exertion 08/15/2014 TORRES (dyspnea on exertion) ??? Benign hypertension with CKD (chronic kidney disease) stage III ([facility]) 08/15/2014 Near syncope Blood pressure stable. Continue lisinopril 2.5 mg daily. Monitor blood pressure, adjust meds accordingly Last Assessment & Plan: Blood pressure stable. Continue lisinopril 2.5 mg daily. Monitor blood pressure, adjust meds accordingly Past Medical History: Diagnosis Date ??? 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 Anxiety ??? Atrial flutter ([facility]) ??? Cataract ??? Chronic anticoagulation due to mechanical heart valve ??? Chronic pain ??? Diabetes mellitus ([facility]) ??? H/O mechanical aortic valve replacement 2003 ??? Hypertension CURRENT HOSPITAL ADMINISTERED MEDICATIONS ??? furosemide 60 mg Intravenous BID ??? gabapentin 300 mg Oral BID ??? lidocaine 1 patch Transdermal Q24H ??? lisinopril 2.5 mg Oral Daily ??? methIMAzole 5 mg Oral Daily ??? metoprolol tartrate 12.5 mg Oral BID ??? morphine 1 mg Intravenous Once ??? pantoprazole EC 20 mg Oral Daily ??? senna-docusate 1 tablet Oral Nightly at bedtime ??? venlafaxine XR 150 mg Oral Daily with breakfast ??? warfarin (COUMADIN) pharmacy to dose Oral See Admin Instructions Allergies Allergen Reactions ??? Atorvastatin Leg Pain Leg pain/cramps. Resolved after stopping. ??? Tape Contact Dermatitis ??? Bacitracin Other (see comment) ??? Benzalkonium Other (see comment) ??? Gramicidin Other (see comment) ??? Hydrocortisone Other (see comment) ??? Neomycin Other (see comment) ??? Polymyxin B Other (see comment) Filed Vitals: 11/02/21 1956 11/02/21 2317 11/03/21 0434 11/03/21 0731 BP: 111/62 108/51 115/57 97/39 Pulse: 110 77 92 91 Resp: 20 20 16 Temp: 98.5 ??F (36.9 ??C) 98.4 ??F (36.9 ??C) TempSrc: Oral Oral Oral SpO2: 99% 100% 100% 97% Weight: Height: Last 5 Recorded Weights 10/25/21 0410 10/26/21 0445 10/29/21 0215 10/31/21 0500 Weight: 85.5 kg (188 lb 7.9 oz) 85.7 kg (188 lb 15 oz) 87.1 kg (192 lb) 88.8 kg (195 lb 12.3 oz) 11/02/21 0518 Weight: 88.3 kg (194 lb 9.6 oz) Intake/Output Summary (Last 24 hours) at 11/03/2021 0809 Last data filed at 11/03/2021 0019 Gross per 24 hour Intake -- Output 1100 ml Net -1100 ml Physical Exam Vitals and nursing note reviewed. Constitutional: Appearance: She is obese. HENT: Head: Normocephalic and atraumatic. Right Ear: External ear normal. Left Ear: External ear normal. Nose: Nose normal. Mouth/Throat: Mouth: Mucous membranes are moist. Eyes: Pupils: Pupils are equal, round, and reactive to light. Cardiovascular: Rate and Rhythm: Normal rate. Rhythm irregularly irregular. Heart sounds: Murmur heard. Pulmonary: Effort: Pulmonary effort is normal. No respiratory distress. Breath sounds: No wheezing. Abdominal: Palpations: Abdomen is soft. Musculoskeletal: Right lower leg: No edema. Left lower leg: No edema. Skin: General: Skin is warm. Capillary Refill: Capillary refill takes less than 2 seconds. Coloration: Skin is pale. Neurological: General: No focal deficit present. Mental Status: She is alert and oriented to person, place, and time. Psychiatric: Mood and Affect: Mood normal. LABORATORY DATA Recent Labs Lab 11/01/2172711/02/21 0637 11/03/21 0649 WBC 4.4* 5.1 4.8 RBC 2.50* 2.39* 2.57* HGB 7.9* 7.5* 7.9* HCT 26.1* 24.9* 26.5* MCV 104.4* 104.2* 103.1* MCH 31.6* 31.4* 30.7 MCHC 30.3* 30.1* 29.8* PLT 185 177 188 Recent Labs Lab 11/01/2172711/02/21 0637 11/03/21 0649 NA 143 141 143 K 4.8 4.7 4.5 CL 115* 111* 113* CO2 26.4 31.3 29.5 BUN 16 19* 22* CR 1.02 1.15* 1.11* GLU 94 76 75 BUNCREATININ 15.7 16.5 19.8 estimated creatinine clearance is 45.6 mL/min (A) (based on SCr of 1.11 mg/dL (H)). Recent Labs Lab 10/28/21 19210/29/21 0704 10/31/21 0714 11/01/2128 11/02/21 0637 11/03/21 0649 MAGNESIUM 1.7* -- 1.6* -- -- 1.6* CA 9.6 < > 9.9 9.8 9.8 10.3* < > = values in this interval not displayed. Recent Labs Lab 11/01/2172711/02/21 0637 11/03/21 0649 TP 5.5* 5.3* 5.5* ALB 2.4* 2.3* 2.4* TBIL 0.4 0.4 0.4 ALKP 79 82 82 AST 23 19 20 ALT 24 23 25 Recent Labs Lab 11/01/21 0728 11/02/21 0637 11/03/21 0649 INR 3.0 2.6 2.2 Lab Results Component Value Date CHOL 200 (H) 08/29/2021 TRI 108 08/29/2021 HDL 71 08/29/2021 HGBA1C 6.1 08/29/2021 TSH <0.005 (L) 10/30/2021 Recent Labs Lab 10/30/21 1155 TROP 18 DARELL GRAYSON PA-C , 11/03/2021 8:09 AM Cosigned by Gael Hart MD at 11/03/2021 5:42 PM CDT * Fabiokaron Treviño RN - 11/03/2021 12:23 AM CDT Problem: Reduced risk for falls/injury [...] and interventions as needed. Outcome: Progressing Problem: Mobility Goal: STG - Pt will ambulate Outcome: Progressing Goal: STG - Pt will ascend/descend stairs Outcome: Progressing Problem: Grooming Goal: STG - Pt will complete grooming while standing sink/tableside with Description: SBS/MOD I Outcome: Progressing Problem: Toileting Goal: STG - Pt will complete management (up/down) with Description: SBS/MOD I WITH WW Outcome: Progressing Problem: Transfers Goal: STG - Pt will perform a toilet transfer with Description: SBS/MOD I Outcome: Progressing * Jayy Jo MD - 11/02/2021 4:45 PM CDT Hospitalist Daily Progress Note Patient: Ana Maria Bobo (:1945) Room: [place] [address] Date of admission: 10/22/2021 No of days in hospital: 11 Subjective Interval Hx: Patient is feeling better overall, less shortness of breath, less abdominal distension and LE edema. She denied chest pain, nausea or vomiting. Net I/O/24 hours with -1.04 L Objective Filed Vitals: 11/02/21 0518 11/02/21 0745 11/02/21 1107 11/02/21 1529 BP: 123/68 115/89 107/68 102/55 Pulse: 119 101 83 Resp: Temp: 98.4 ??F (36.9 ??C) 98.7 ??F (37.1 ??C) 98.8 ??F (37.1 ??C) TempSrc: Oral Oral Oral Oral SpO2: 97% 97% 98% 99% Weight: 88.3 kg (194 lb 9.6 oz) Height: Physical Exam: Gen: Alert, cooperative, no distress Head: Normocephalic, without obvious abnormality, atraumatic Eyes: Conjunctivae/corneas clear, EOMI Nose: Mucosa normal. No drainage. Throat:Moist mucous membranes, Neck: trachea midline Resp: Diminished right lung sounds with right basilar rales, left lung was clear, no wheezes/rhonchi CV Irregularly irregular , S1S2 Abd: S/NT/ND, BS+, no bruits Ext: No clubbing, cyanosis, +2 LE edema Skin: Skin color, texture, turgor normal. No rashes or lesions Neuro: No focal deficits Intake/Output 24H Total: Intake/Output Summary (Last 24 hours) at 11/02/2021 1645 Last data filed at 11/02/2021 0300 Gross per 24 hour Intake 360 ml Output 950 ml Net -590 ml Medication ??? furosemide 60 mg Intravenous BID ??? gabapentin 300 mg Oral BID ??? lidocaine 1 patch Transdermal Q24H ??? lisinopril 2.5 mg Oral Daily ??? methIMAzole 5 mg Oral Daily ??? metoprolol tartrate 12.5 mg Oral BID ??? morphine 1 mg Intravenous Once ??? pantoprazole EC 20 mg Oral Daily ??? senna-docusate 1 tablet Oral Nightly at bedtime ??? venlafaxine XR 150 mg Oral Daily with breakfast ??? warfarin (COUMADIN) pharmacy to dose Oral See Admin Instructions ??? warfarin 3 mg Oral Once PRN Meds: acetaminophen, albuterol sulfate HFA, ALPRAZolam, calcium carbonate, dextrose 10 % bolus,glucagon, glucose, HYDROcodone-acetaminophen, zofyiqlsq-jsriasrc-fgahspwhwgr, naLOXone, nitroglycerin, ondansetron, polyethylene glycol Labs: Recent Labs Lab 10/27/21 0737 10/28/21 0805 10/29/21 0704 10/30/21 0659 10/31/21 0714 11/01/21 0728 11/02/21 0637 WBC 5.0 4.5 4.7 4.4* 5.3 4.4* 5.1 RBC 2.60* 2.49* 2.63* 2.44* 2.45* 2.50* 2.39* HGB 8.1* 7.6* 8.2* 7.5* 7.5* 7.9* 7.5* HCT 27.3* 26.2* 28.3* 25.8* 26.0* 26.1* 24.9* MCV 105.0* 105.2* 107.6* 105.7* 106.1* 104.4* 104.2* MCH 31.2* 30.5 31.2* 30.7 30.6 31.6* 31.4* MCHC 29.7* 29.0* 29.0* 29.1* 28.8* 30.3* 30.1* PLT 166 162 142 171 174 185 177 RDW 12.2 12.1 12.4 12.2 12.3 12.2 12.2 MPV 13.3* 13.6* 13.7* 13.1* 13.1* 13.3* 12.4* PERNEU 57.8 60.1 59.1 55.7 61.6 54.4 54.3 PERLYM 20.0 17.4 17.5 20.2 17.6 22.3 21.8 PERMON 16.6 17.2 17.7 17.7 15.3 17.3 17.0 LYMC 1.00 0.78* 0.83* 0.89* 0.93* 0.99* 1.12 MONOC 0.83 0.77 0.84 0.78 0.81 0.77 0.87* EOSC 0.22 0.19 0.20 0.21 0.24 0.21 0.28 BASOC 0.05 0.04 0.05 0.05 0.04 0.05 0.05 DTYPE AUTOMATED DIFFERENTIAL AUTOMATED DIFFERENTIAL AUTOMATED DIFFERENTIAL AUTOMATED DIFFERENTIAL AUTOMATED DIFFERENTIAL AUTOMATED DIFFERENTIAL AUTOMATED DIFFERENTIAL Recent Labs Lab 10/28/21 0805 10/28/21 1922 10/29/21 0704 10/30/21 0659 10/31/21 0714 11/01/21 0728 11/02/21 0637 NA 143 141 144 142 143 143 141 K 5.4* 5.2* 5.2* 5.0 4.9 4.8 4.7 CL 115* 113* 115* 115* 115* 115* 111* CO2 26.1 26.9 25.8 25.0 25.9 26.4 31.3 AGAP 1.9* 1.1* 3.2* 2.0* 2.1* 1.6* NOT CALCULATED BUN 20* 19* 17 16 15 16 19* CR 1.12* 1.10* 0.93 1.03* 0.99 1.02 1.15* BUNCREATININ 17.9 17.3 18.4 15.5 15.1 15.7 16.5 GLU 90 136* 95 81 83 94 76 CA 9.6 9.6 10.1 9.8 9.9 9.8 9.8 TP 5.4* 5.6* 5.8* 5.4* 5.3* 5.5* 5.3* ALB 2.2* 2.3* 2.5* 2.3* 2.4* 2.4* 2.3* TBIL 0.3 0.3 0.4 0.4 0.3 0.4 0.4 ALKP 83 86 86 82 81 79 82 AST 25 22 25 25 21 23 19 ALT 22 23 25 25 23 24 23 Recent Labs Lab 10/30/21 1155 TSH <0.005* Recent Labs Lab 10/31/21 0714 11/01/21 0728 11/02/21 0637 INR 3.1 3.0 2.6 Recent Labs Lab 10/30/21 1155 TROP 18 No results for input(s): LACTICACID, PROCT in the last 168 hours. No results for input(s): PH, PCO2, PO2, [id number], BICARBWB, BASEDEFICIT, BASEEXCESS in the irbr419 hours. No results found for this or any previous visit. Imaging CT ABD+PEL WO CON Result Date: 10/27/2021 EXAMINATION: CT Abdomen and Pelvis without contrast EXAM DATE/TIME: :01 AM REASON FOR EXAM: Abdominal pain, acute, nonlocalized COMPARISON: 09/17/2021 CT abdomen and pelvis TECHNIQUE: Axial CT images of the abdomen and pelvis are obtained without the use of IV contrast agent. Subsequent coronal and sagittal reformatted sequences are created for evaluation. A dose lo wering technique was used for this procedure, which may include, but is not limited to, dose reduction technique, automated exposure control, iterative reconstruction, ALARA (As Low As Reasonably Achievable), or Image Gently techniques. FINDINGS: Small right and tiny left pleural effusions. Breathing motion artifact in the lung bases. No convincing pulmonary nodules or masses. Heart size enlarged. Coronary artery calcifications. No pericardial effusion. Low-density blood pool suggestive of anemia. The liver and spleen are normal in size and contour. Fatty atrophy of the pancreas. Gallbladder and adrenal glands grossly unremarkable on this noncontrast study. Small area of calcifications overthe anterior right hepatic lobe similar to prior exam. This may be an area of old healed trauma or hemorrhage. Soft tissue density area of nodularity near the gallbladder fundus. This is similar in size to the prior exam. No hydronephrosis or obstructive uropathy on either side. Abdominal aorta normal in caliber throughout with extensive calcifications. Bowel is normal in caliber throughout. No evidence of bowel obstruction. No free fluid in the pelvis. Bladder contours grossly unremarkable. Bladder is decompressed. Atrophic or postsurgical uterus. The appendix is normal. Mild scattered diverticular disease. Short segment length of sigmoid colon with diffuse wall thickening and minimal surrounding inflammatory stranding. This is slightly worsened from prior study. No evidence of perforation or abscess formation within limitations of this noncontrast exam. This could represent acute diverticulitis. Neoplasm is not entirely excluded. Multilevel degenerative changes in the thoracolumbar s pine with no convincing acute osseous abnormality. ===== IMPRESSION: ===== 1. Length of sigmoid colon in the mid pelvis with diffuse wall thickening and surrounding inflammatory stranding mildly worsened from comparison exam. No perforation or abscess formation identified within limits of this noncontrast exam. Acute diverticulitis is favored. Underlyingneoplasm not excluded. Follow-up recommended to ensure resolution. 2. Focal nodularity in the gallbladder wall is indeterminate but concerning for neoplasm. Follow-up nonemergent right upper quadrant ultrasound recommended if not previously obtained elsewhere. 3. Small right and tiny left pleural effusions 4. Coronary artery calcifications and atherosclerotic aorta 5. Low-density blood pool raises suspicion for anemia Referred By: Interpreted By: Quoc Wilkinson MD, 10/27/2021 9:20 AM CTA CHEST Result Date: 10/15/2021 Examination: CTA CHEST Clinical history: Chest pain Comparison: X-ray, same date DATE/TIME: 10/15/2021 5:13 PM Technique: Multiplanar images of the chest were obtained following the uneventful intravenous administration of 80 mL Isovue 370. 3D Post-processed images were reconstructed on an independent workstation. A dose lowering technique was used for this procedure, which may include, but is not limited to, dose reduction technique, automated exposure control, the use of iterative reconstruction, and ALARA (As Low As Reasonably Achievable) / Image Gently techniques. Findings: There is adequate pulmonary artery opacification. No evidence of pulmonary embolism. Mild to moderate cardiomegaly. Aortic valve prosthesis. Coronary artery calcifications. No pericardial effusion. Thoracic aorta is normal caliber. No mediastinal or hilar lymphadenopathy. No evidence of pneumonia or pulmonary edema. No pleural effusion or pneumothorax. Thoracic compression deformity of T6 with 75% anterior heightloss, appearing chronic. There is minimal retropulsion into the spinal canal with Mild spinal canal narrowing. Sternotomy. Thoracic spondylosis. IMPRESSION: 1. No evidence of pulmonary embolism or other acute findings. 2. Cardiomegaly. 3. Otherchronic or nonurgent findings as described above. Referred By: Interpreted By: Estevan Martines MD, 10/15/2021 5:52 PM CTA HEAD Result Date: 10/23/2021 DATE: 10/22/2021 12:37 PM INDICATION: Right MCA aneurysm. EXAMINATION: CT angiography of the head. TECHNIQUE: CT angiography of the head was performed after uneventful intravenous administration of 80mL IOPAMIDOL 76 % IV SOLN. CT dose reduction techniques were utilized. Axial and 3-D/MIP images were reconstructed and reviewed. Additional 3-D reconstructions and/or postprocessing were performed on a separate dedicated 3-D workstation. A dose lowering technique was used for this procedure, which may include, but is not limited to, dose reduction technique, automated exposure control, the use of iterative reconstruction, and ALARA (As Low As Reasonably Achievable) / Image Gently techniques. COMPARISON: Report from catheter angiography performed 08/10/2020, images not available for direct comparison. FINDINGS: CTA HEAD: There is a 3-4 mm vascular outpouching at the right MCA bifurcation, corresponding to patient's known right MCA aneurysm. Scattered atherosclerotic calcifications seen along t he cavernous and supraclinoid ICA segments, but with less than 50% narrowing suggested. Left BARRIE [id number] is developmentally hypoplastic. Anterior communicating artery is patent. Otherwise the proximal portions of the anterior and middle cerebral arteries are patent. Atherosclerotic calcifications seen along the vertebral artery V4 segments, without significant narrowing. Basilar artery patent to the terminus. 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 Proximal portions of the posterior cerebral arteries, superior cerebellar arteries, and PICA branches are patent. Right posterior communicating artery not well- visualized. SOFTTISSUES: Small vessel disease and volume loss. Bilateral lens replacements. IMPRESSION: 1. 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 Similar findings described on prior catheter angiography examination 08/10/2020, though no images are available for direct comparison. Ordered By: SULEMAN WEBSTER Interpreted By: Dale Brush MD, 10/23/2021 9:21 AM USV NEGRITA DUPLEX LOW EXT RT Result Date: 10/21/2021 VENOUS DUPLEX IMAGING RIGHT LOWER EXTREMITY VASCULAR LAB Pat.Name: ANA MARIA BOBO HANNA Pat.ID: [id number] St.Date: 10/15/2021 Exam Time: 4:09:00 PM Study Type:TOYA VS Venous Duplex Leg Rt Age: 3 1945,76Y Sex: FEMALE Sonogrphr: Diana Bronson RVT Pat. Stat.:Outpatient Room: ER History / Clinical:Chest pain. Calf injury, redness, edema. PMH, cad, dm, htn, ckd, hld, copd Procedures: Carrillo scale, Color Doppler imaging, Doppler Spectral Analysis Race: W ++++++++++++++++++++++++++++++++++++ SUMMARY: ++++++++++++++++++++++++++++++++++++ Right leg: There are NO apparent, deep or superficial vein, ACUTE character venous filling defects visualized in the femoral, popliteal, deep calf or proximal saphenous veins. Resting venous flow is normal phasic proximally. No valve reflux with compressionmaneuvers is detected in the femoral and popliteal veins. Left leg LIMITED: Resting venous flow is normal phasic at the common femoral. No valve reflux with compression maneuvers is detected in the common femoral vein. CONCLUSION: Normal study right lower extremity, with no evidence of acute deep or superficial vein thrombosis. There is no significant reflux detected. ++++++++++++++++++++++++++++++++++++ FINDINGS: ++++++++++++++++++++++++++++++++++++ Signed 10/21/2021 12:57 PM José Kaiser M.D. XR CHEST PA+LAT Result Date: 11/01/2021 EXAMINATION: PA AND LATERAL CHEST Exam date/time: 11/01/2021 8:15 AM Reason For Exam: Shortness of breath and congestive heart failure Comparison: 10/22/2021 Technique: 2 views. Findings: Cardiomegaly. Small bilateral pleural effusions with associated atelectasis. Pulmonary venous congestion, possibly mild edema. Overall, stable. No pneumothorax. ===== IMPRESSION:===== Small bilateral pleural effusions with associated atelectasis. Pulmonary venous congestion, possibly mild edema. Overall, stable. Referred By: Interpreted By: Jarvis Munoz MD, 11/01/2021 8:18 AM XR CHEST PA+LAT Result Date: 10/19/2021 Examination: Chest x-ray 2 view Exam Date/Time: 10/19/2021 7:00 AM Reason For Exam: chf Comparison: 10/15/2021 chest radiograph Technique: PA and lateral views of the chest were obtained. Findings: Heart size prominent but stable from prior study. Post sternotomy changes again seen including fractured wires. Atherosclerotic aorta. Increased AP dimensional airspace and flattening of diaphragms. Pulmonary vascularity stable from prior study. Interval worsening of opacities at the lung bases more so on the left obscuring diaphragm shadow on frontal view. Upper lungs clear. ======== IMPRESSION: ======== 1. Developing opacity at the anterior left lung base may be infiltrate or atelectasis. Stable interval appearance of the chest otherwise. Referred By: Interpreted By: Quoc Wilkinson MD, 10/19/2021 7:10 AM XR CHEST PORTABLE Result Date: 10/22/2021 Exam: Chest x-ray Comparison 10/19/2021 INDICATION: Recent hospital discharge for pneumonia. Dyspnea. TECHNIQUE: One view FINDINGS: The heart is enlarged. Median sternotomy and valve replacement. Central pulmonary vessels are partially obscured but are within normal limits for size. The right lung is clear. Indistinctness of the left lung base and hemidiaphragm. Uncertain significance with portable technique and superimposed soft tissues. There could be a component of lung opacification or smallpleural effusion present. No substantial change from the prior exam allowing for differences in patient positioning. The remainder of the left lung is clear. IMPRESSION: 1. Enlarged heart. 2. Artifact versus some mild increased density in the left lung base. Referred By: Interpreted By: Neel Basurto MD, 10/22/2021 6:20 PM XR CHEST PORTABLE Result Date: 10/15/2021 Examination: Chest 1 view portable History: Chest pain DATE/TIME: 10/15/2021 1:17 PM Comparison: NoneTechnique: AP upright portable view of the chest was obtained. Findings: Sternotomy. Heart size andmediastinal contours are normal. Borderline pulmonary vasculature. No pulmonary consolidation, pleural effusion or pneumothorax. No acute osseous abnormality. Old left clavicle fracture. Impression: 1. No acute infiltrate. 2. Borderline vascular congestion. Referred By: Interpreted By: Estevan Martines MD, 10/15/2021 1:[address] CHEST WO CON Result Date: 10/25/2021 EXAMINATION: CT Chest without contrast EXAM DATE/TIME: 10/25/2021 8:24 AM REASON FOR EXAM: 76 female. 'LLL pneumonia vs effusion? Pneumonia, effusion or abscess suspected, xray done' COMPARISON: Chest x-ray 10/22/2021; CT chest 10/15/2021 TECHNIQUE: Computed tomography of the chest was obtained without administration of intravenous contrast. A dose lowering technique was used for this procedure, which may include, but is not limited to, dose reduction technique, automated exposure control, the use of iterative reconstruction, and ALARA (As Low As Reasonably Achievable) / Image Gently techniques. FINDINGS: Stable mild/moderate four-chamber cardiomegaly. Slightly decreased attenuation cardiac blood pool suggesting anemia. Sequela of prior cardiac surgery with sternotomy changes. Replaced aortic valve. Coronary artery disease. No pericardial effusion. The moderate thoracic aortic atherosclerosis. Normal diameter. No overt central pulmonary arterial enlargement. No suprac lavicular adenopathy. Borderline mediastinal precarinal lymph node measures 1 cm in short axis axis. No other potential adenopathy in the chest. Trace nondrainable right pleural fluid; even less equivocal trace left pleural fluid. The slight diaphragmatic eventration. Stable wedge-shaped left lowerlobe anterior basal segment suspected subsegmental atelectasis in addition mild dependent subsegmental atelectasis at the lung bases. Few other nonspecific minimal streaky linear densities. Scatteredareas of subtle interlobular septal thickening anterior upper lobes and lung bases may represent element of fluid overload. No confluent consolidation, focal pulmonary nodule or mass. Central and distal airways are clear. No thickening or mucous plugging seen. Unenhanced images of the upper abdomenshow nonspecific hepatomegaly. Midthoracic vertebral body severe compression deformity. Multilevel degenerative spondylosis and 1 demineralization. No concerning focal lytic or blastic lesion seen. IMPRESSION:===== 1. Stable four-chamber cardiomegaly with mild anemia. 2. Trace nondrainable dependent left pleural effusion and even less equivocal trace left pleural fluid. 3. Stable focal left lower lobe anterior basal subsegmental atelectasis and minimal dependent subsegmental atelectasis. 4. Scattered subtle interlobular septal thickening may indicate an element of fluid overload. 5. No other acute or chronic significant airspace or airway finding. 6. Other nonemergent, incidental, stable and potential chronic findings as discussed in the report body above. Ordered By: SULEMAN DUEÑAS Interpreted By: Rangel Dominguez MD, 10/25 8:38 AM NM PHARM NUC STRESS TEST 1DAY Result Date: 10/31/2021 Myocardial Perfusion Imaging Pat.Name: ANA MARIA BOBO Pat.ID: [id number] St.Date: 10/31/2021efceferino.MD: Zoey Ricks [id number] Exam Time: 8:30:00 AM Study Type:TOYA NC HT MUSCLE IMAGE SPECT MULTI Height: 64in Weight: 192lb BSA: 1.92 m2 Age: 3 1945,76Y Sex: FEMALE Sonogrphr: IZAIAH Irvin Pat. Stat.:Inpatient Reason for Study: Chest pain, Evaluation of known CAD, Congestive heart failure, Atrial flutter History / Clinical: Atrial fibrillation, Diabetes, Dyslipidemia, Hypertension, Sleep Apnea Procedures: Nuclear Stress Test with Lexiscan Race: W Surgery: Echocardiogram, Aortic Valve Replacement ++++++++++++++++++++++++++++++++++++ SUMMARY: ++++++++++++++++++++++++++++++++++++ Stress conclusion: 1. Clinically negative. 2. Electrocardiographically [...] overall low risk for a cardiac event. ++++++++++++++++++++++++++++++++++++ FINDINGS: ++++++++++++++++++++++++++++++++++++ Protocol: Lexiscan 0.4mg was given as a rapid injection IV over a period of 10 seconds with the radiopharmaceutical injected at 20 seconds. The images were processed using the standard SPECT technique. A gated study was performed on the stress images. Impression: SPECT images demonstrate normal perfusion of normal intensity. Heart Size: The left ventricleis normal. LV Wall Motion: The LVEF is calculated to be 51%. Gated SPECT images abnormal normal wall motion due to Left bundle branch block. Gated SPECT images reveal global hypokinesis. Transient Ischemic Dilatation: The TID is 1.04. There is no evidence of Transient Ischemic Dilatation. ++++++++++ ++++++++++++++++++++++++++ STRESS: ++++++++++++++++++++++++++++++++++++ Baseline Vital Signs: Intervention Regadenoson ECG Atrial Fibrillation, Left bundle branch blockPeak Dose 0.4 mg HR 82 Atropine0 Rest BP 139/64 Stress Test Results: Max. HR 127 Pred. Max. Heart Rate (100%) 143 % Target: 89 % Max BP 147/60 O2 Sat 100 % Max RPP [id number] Symptoms and Complications: Terminated Protocol completed Symptoms Chest pain, Dizziness, Headache, Nausea Complications None Stress ECG Interp Atrial Fibrillation, Left bundle branch block Signed 10/31/2021 01:50 PM Tere Cedillo M.D. MRI BRAIN WO CON Result Date: 10/25/2021 EXAMINATION: MRI BRAIN WO CON, 10/25/2021 10:53 PM TECHNIQUE: Axial and sagittal T1, axial T2, axialDWI, axial and sagittal T2 FLAIR, as well [...] (best seen on series 8 image 10), b elaine characterized on prior CT head examination from 10/22/2021. The proximal intracranial arterialflow voids otherwise have a normal appearance. Prior bilateral ocular lens extractions with prosthetic lens implantation. The orbital contents otherwise appear within normal limits. The paranasal sinuses and mastoid air cells are well aerated. IMPRESSION: 1. No acute intracranial abnormality. 2. Moderate global cerebral volume loss and mild to moderate chronic small vessel ischemic change. 3. Redemonstrated right MCA bifurcation saccular aneurysm, similar to the prior CT head examination from 10/22/2021. Referred By: Electronically SignedBy: José Almeida MD on 10/25/2021 10:58 PM Interpreted By: José Almeida MD, 10/25/2021 10:52 PM USE ECHOCARDIOGRAM W CON Result Date: 10/16/2021 Echocardiography Report Pat.Name: ANA MARIA BOBO Pat.ID: [id number] St.Date: 10/16/2021 Exam Time: 3:01:00 PM Study Type:ECHO WITH CARDIAC DOPPLER COMP Height: 64in Weight: 183.62lb BSA: 1.89 m2DOB Age: 3 1945,76Y Sex: FEMALE BP: 115/57 HR: 91 bpm Sonogrphr: Becky Martel [facility] Pat. Stat. :Inpatient Room: [facility] Reason for Study: Aortic valve replacement, Congestive heart failure, Dyspnea on exertion, Murmur History / Clinical: Chest pain. Calf injury, redness, edema. PMH, cad, dm, htn, ckd, hld, copd Procedures: 2D, M- mode, Doppler, Color Flow, Definity was used to enhance endocardial definition., The study quality is technically difficult. Race: W ++++++++++++++++++++++++++++++++++++ SUMMARY: ++++++++++++++++++++++++++++++++++++ The left ventricular size is normal. Estimated left ventricular ejection fraction is 40-45%. Moderate concentric left ventricular hypertrophy. Left ventricular diastolic function is abnormal (grade 2 - pseudonormal pattern). ?Moderate global hypokinesis is noted. The right ventricular size is normal. Right ventricular systolic function is moderately depressed. A mechanical valve is in the aortic position with post-deployment peak velocity of 3.53m/sec, mean gradient of 31mmHg and a calculated YADIRA of 1.10cm2. Right ventricular systolic pressure is 40-50 mmHg suggestive of mild to moderate pulmonary hypertension. Mild to moderate tricuspid regurgitation. Moderate mitral regurgitation. ++++++++++++++++++++++++++++++++++++ FINDINGS: ++++++++++++++++++++++++++++++++++++ LV: The left ventricular size is normal. Estimated left ventricular ejection fraction is 40-45%. Moderate concentric left ventricular hypertrophy. Left ventricular diastolic function is abnormal (grade 2 - pseudonormal pattern). WM: Moderate global hypokinesis is noted.RV: The right ventricular size is normal. Right ventricular systolic function is moderately depressed. IVS: No evidence of ventricular septal defect. LA: The left atrial size is mildly enlarged. The left atrial volume is mildly increased (34- 41ml/M2). RA: Right atrial size is mildly enlarged. IAS:Atrial septum appears intact. DENICE: No evidence of pericardial effusion. AO: Normal aortic root. PA: Estimated right atrial pressure of 15 mmHg. SVn: Inferior vena cava is mildly enlarged. Inferior vena cava shows <50% collapse with respiration consistent with elevated right atrial pressure. AV:Mechanical prosthetic aortic valve seen. A trace of denice-prosthetic aortic valve regurgitation. A mechanical valve is in the aortic position with post-deployment peak velocity of 3.53m/sec, mean gradient of 31mmHg and a calculated YADIRA of 1.10cm2. MV: Moderate mitral regurgitation. No evidence of mitral stenosis. PV: No evidence of pulmonic valve stenosis. Mild pulmonic regurgitation. TV: Mild to moderate tricuspid regurgitation. Right ventricular systolic pressure is 40-50 mmHg suggestive of mild to moderate pulmonary hypertension. No evidence of tricuspid valve stenosis. ++++++++++++++++++++++++++++++++++++ MEASUREMENTS: ++++++++++++++++++++++++++++++++++++ DOPPLER LVOT LVOTpkPG 8 mmHg LVOTmnPG 4 mmHg LVOTpkVel 141 cm/s (70-110)+* LVOT SV 83 ml LVOT TVI 26.3 cm Right Atrium RA Press 15mmHg Ayala's Disk 20 AV Forward Flow AV TVI 51.2 cm AV pkPG 37 mmHg AV pkVel 305 cm/s (100-170)+*Area (TVI) 1.61 cm2 (3-5)* AV mnPG 21 mmHg Area (Randall) 1.45 cm2 (3-5)* AV Regurg Flow AV pkVel 381 cm/s AV P1/2t 290 ms AV pkPG 58 mmHg MV Forward Flow MV DeTm 257 ms MV pkPG 9 mmHg MV mnPG 3 mmHg MV pkE 134 cm/s (60-130)+* PV Forward Flow PV pkVel 96.4 cm/s (60-90)* PV AC 109 ms PV pkPG 4 mmHg TV Regurg Flow TV pkPG 26 mmHg TV pkVel 253 cm/s (30-70)+* Right Ventricle RVsys P 41 mmHg Right Ventricle 5.32 cm/s Lat E' Lat e 7.2 cm/s Lat E/E' Lat E/e 18.6 Med E' Med e 4.94 cm/s Med E/E' Med E/e 27.1 Aortic Valve Aortic Valve Ar 0.85 Aortic Valve Ve 0.46 PV Antegrade Flow Acceleration Sl 573 cm/s2 TAPSE Distance 8 mm 2D Left Ventricle LVIDd 4.8 cm (3.6-5.2)+ LV ESV 52.6 ml LVIDs 3.63 cm (2.3-3.9)+ LV ESV 46.2 ml LngAxd 7.03 cm LVESV BP 50.5 ml LngAxd 7.4 cm LV EF 36.1 % LV EDV 82.2 ml LV EF 42.7 % LV EDV 80.4 ml LV EF BP 38.7 % LVEDV BP 82.4 ml LV SV 29.6 ml LngAxs 6.96 cm LV SV 34.4 ml LngAxs 7.36 cm LV SV BP 31.9 ml LVPW LVPWd 1.36 cm Ventricular Septum IVSd 1.32 cm Left Atrium LA VOLBP 72.9 ml Aorta Ao Rtd 2.4 cm LVOT LVOT 2 cm LVOTArea 3.14 cm2 Ratios IVS LA Biplane LAVol I BP 38.6 ml/m2 RA Single Plane Right Atrium MO 13.4 mm Right Atrium Sy 51.1 ml Right Atrium Sy 64.4 mm Right Atrium Sy 27 ml/m2 Right Atrium Sy 20 cm2 Right Ventricle Right Ventricle 27 mm Right Ventricle 32 .8 mm [facility] 77.7 mm Signed 10/16/2021 06:42 PM Tere Cedillo M.D. EKG: Results for orders placed or performed during the hospital encounter of 10/22/21 ECG 12 lead Narrative [facility] [address] [place] [address] Test Date: 2021-10-22 Pat Name: ANA MARIA BOBO Department: 41 Room: B443 Gender: Female Credit Report Checker: : 1945 Requested By: SANJANA BATES Order Number: [id number] Reading MD: Sanjana Ludwig Measurements Intervals [place] [facility] Rate: 86 P: MS: 0 QRS: -37 QRSD: 160 T: 98 QT: 411 QTc: 494 Interpretive Statements ATRIAL FIBRILLATION LEFT AXIS DEVIATION [QRS AXIS < -30] LEFT BUNDLE BRANCH BLOCK [120+ ms QRS DURATION, 80+ ms Q/S IN V1/V2, 85+ ms R IN I/aVL/V5/V6] Compared to ECG 10/15/2021 17:09:13 Left-axis deviation now present ECG 12 lead Narrative [facility] [address] [place] [address] Test Date: 2021-10-28 Pat Name: ANA MARIA BOBO Department: 40 Room: [id number] Gender: Female Credit Report Checker: : 1945 Requested By: ASHU DENG Order Number: [id number] Reading : Tere Cedillo Measurements Intervals [facility] Rate: 94 P: MS: 0 QRS: -39 QRSD: 159 T: 89 QT: 365 QTc: 458 Interpretive Statements ATRIAL FIBRILLATION LEFT BUNDLE BRANCH BLOCK [120+ ms QRS DURATION, 80+ ms Q/S IN V1/V2, 85+ ms R IN I/aVL/V5/V6] Compared to ECG 10/22/2021 18:11:32 No significant changes ECG [address] [facility] [address] [facility] Test Date: 2021-10-30 Pat Name: ANA MARIA BOBO Department: 40 Room: [facility] Gender: Female Credit Report Checker: : 1945 Requested By: ASHU DENG Order Number: [id number] Reading MD: Tere Cedillo Measurements Intervals [place] [facility] Rate: 88 P: MS: 0 QRS: -26 QRSD: 158 T: 116 QT: 380 QTc: 462 Interpretive Statements ATRIAL FIBRILLATION LEFT BUNDLE BRANCH BLOCK [120+ ms QRS DURATION, 80+ ms Q/S IN V1/V2, 85+ ms R IN I/aVL/V5/V6] Compared to ECG 10/28/2021 18:07:07 Left-axis deviation no longer present Assessment/Plan: OLIVE (acute kidney injury) (CMS/HCC) Acute on chronic heart failure reduced ejection fraction pBNP 14,562 CXR 11/01: Small bilateral pleural effusions. 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 11/02 cont with IV lasix 60 mg BID. Net I/O/24 hours with -1.04 L NSVT 10/28 patient had 9 beat run of Vtach, asymptomatic F/u EKG, electrolytes C/w BB telemetry ?? Acute diverticulitis: resolved F/u CT abd/pelvis revealed acute diverticulitis Completed 6 days of cefoxitin IV ?? Hypotension Suspect over diuresis and poor oral intake [...] hold 10/31 improving BP, stable Resolved ?? NSTEMI Cardiology consulted Start ASA 81 mg per cardiology Telemetry Stress test: no ischemia ?? Acute on chronic renal failure Initially suspect seconday to hypotension, possible diuresis and reduced oral intake. She is s/p 2 L normal saline in the ED Now being diuresed for acute on chronic CHF as above Resolving ?? Possible CAP Patient afebrile no leukocytosis Pulm consulted Sputum culture: normal betty Antibiotics discontinued per pulmonology ?? Acute hypoxic respiratory failure: Secondary to the above patient continues to be maintained on 2 L nasal cannula 1 L while sleeping Patient also found to have respiratory acidosis Started BiPAP, now dc'd Pulm consulted Less concerning for PNA-stop abx Monitor with IV diuresis Improving- on 3L NC, wean as tolerated ?? A. fib currently rate controlled Sroke risk reduction with Coumadin Continue BB INR goal 2.5-3.5 for mechanical valve, pharmacy to dose. ?? Hyperlipidemia Continue statin ?? Hyperthyroidism Continue methimazole follow-up PCP Consider endocrinology referral ?? GERD Continue PPI ?? Anemia No signs of active bleeding Monitor CBC ?? Right MCA aneurysm Noted on CTA Also noted per radiology on prior imaging, though direct comparison not available Neurology consulted MRI brain: Redemonstrated right MCA bifurcation saccular aneurysm, similar to the prior CT head examination from 10/22/2021 EEG normal Close follow up after discharge ?? Abnormal abdominal imaging Length of sigmoid colon [...] elsewhere. Close outpatient follow up for further imaging ? 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 Lj aortic valve (on warfarin), hypertension, obstructive sleep apnea compliant with CPAP. CAD, diabetes mellitus, HTN, HLD admitted on 10/22/2021 5:53 PM with weakness Events: Patient elevated proBNP from baseline evidence of worsening pulmonary vascular congestion, resumed IV Lasix, negative stress test on no evidence of ischemia. Subjective: Patient notes excellent diuresis. She is feeling better less bloated less short of breath. No new cardiopulmonary complaints. Assessment: NSTEMI Stress test no evidence of ischemia. Elevated troponin likely demand type II myocardial infarction. ?? Mechanical AVR Continue warfarin, INR goal is 2.5-3.5 Dosing as per pharmacy. ?? MR, moderate ?? Acute combined CHF. Patient feeling better excellent diuresis less bloating. Continue IV Lasix today check BUN/creatinine electrolytes tomorrow. A. fib Vent rate controlled on BB dosing. Warfarin per pharm Dr. Paredes had previously stopped low dose amiodarone Reviewed tele, no VT seen. Likely a fib with RVR TSH<0.005 per others ?? Anemia Low, stable. Per others. Remains on warfarin dosing ?? Abn CT Concern for neoplasm with non-urgent f/u imaging recommended ?? Right MCA sacular aneurysm Appears stable from previous imaging per radiology read Patient is making improvement. Likely be in the hospital several more days while we transition backto oral Lasix probably on Thursday Review of Systems Constitutional: Positive for malaise/fatigue. Respiratory: Positive for shortness of breath and wheezing. Negative for cough. Cardiovascular: Negative for chest pain and leg swelling. Gastrointestinal: Negative for abdominal pain and nausea. Musculoskeletal: Positive for myalgias. Neurological: Positive for weakness. Negative for dizziness and headaches. Psychiatric/Behavioral: The patient is nervous/anxious. Objective: Scheduled Medications: ??? furosemide 60 mg Intravenous BID ??? gabapentin 300 mg Oral BID ??? lidocaine 1 patch Transdermal Q24H ??? lisinopril 2.5 mg Oral Daily ??? methIMAzole 5 mg Oral Daily ??? metoprolol tartrate 12.5 mg Oral BID ??? morphine 1 mg Intravenous Once ??? pantoprazole EC 20 mg Oral Daily ??? senna-docusate 1 tablet Oral Nightly at bedtime ??? venlafaxine XR 150 mg Oral Daily with breakfast ??? warfarin (COUMADIN) pharmacy to dose Oral See Admin Instructions ??? warfarin 3 mg Oral Once acetaminophen, albuterol sulfate HFA, ALPRAZolam, calcium carbonate, dextrose 10 % bolus, glucagon,glucose, HYDROcodone-acetaminophen, gaugkoedu-drwrqdrn-nplnnkphouv, naLOXone, nitroglycerin, ondansetron, polyethylene glycol Vitals: Filed Vitals: 11/01/21 2255 11/02/21 0518 11/02/21 0745 11/02/21 1107 BP: 102/58 123/68 115/89 107/68 Pulse: 90 119 101 Resp: Temp: 97.9 ??F (36.6 ??C) 98.4 ??F (36.9 ??C) 98.7 ??F (37.1 ??C) 98.8 ??F (37.1 ??C) TempSrc: Oral Oral Oral Oral SpO2: 100% 97% 97% 98% Weight: 88.3 kg (194 lb 9.6 oz) Height: I/O: Intake/Output Summary (Last 24 hours) at 11/02/2021 1453 Last data filed at 11/02/2021 0300 Gross per 24 hour Intake 360 ml Output 950 ml Net -590 ml Last 3 Recorded Weights 10/29/21 0215 10/31/21 0500 11/02/21 0518 Weight: 87.1 kg (192 lb) 88.8 kg (195 lb 12.3 oz) 88.3 kg (194 lb 9.6 oz) Physical Exam: Physical Exam Vitals reviewed. Constitutional: Appearance: She is well-developed. Comments: Thin, frail HENT: Head: Normocephalic and atraumatic. Nose: No mucosal edema. Mouth/Throat: Mouth: Mucous membranes are dry. Neck: Vascular: No JVD. Cardiovascular: Rate and Rhythm: Normal rate. Rhythm irregular. No extrasystoles are present. Heart sounds: S1 normal and S2 normal. Murmur heard. Pulmonary: Effort: Pulmonary effort is normal. No respiratory distress. Breath sounds: Normal breath sounds. No wheezing or rales. Abdominal: General: Bowel sounds are normal. There is no distension. Palpations: Abdomen is soft. Tenderness: There is no abdominal tenderness. Musculoskeletal: Cervical back: Neck supple. Right lower leg: No edema. Left lower leg: No edema. Skin: General: Skin is warm and dry. Neurological: Mental Status: She is alert and oriented to person, place, and time. Psychiatric: Behavior: Behavior normal. Thought Content: Thought content normal. Lab/Radiology/Diagnostic Review: Recent Labs Lab 10/30/21 1155 10/31/21 0714 11/01/21 0728 11/02/21 0637 WBC -- 5.3 4.4* 5.1 RBC -- 2.45* 2.50* 2.39* HGB -- 7.5* 7.9* 7.5* HCT -- 26.0* 26.1* 24.9* NA -- 143 143 141 K -- 4.9 4.8 4.7 CL -- 115* 115* 111* CO2 -- 25.9 26.4 31.3 AGAP -- 2.1* 1.6* NOT CALCULATED BUN -- 15 16 19* CR -- 0.99 1.02 1.15* BUNCREATININ -- 15.1 15.7 16.5 GLU -- 83 94 76 CA -- 9.9 9.8 9.8 TP -- 5.3* 5.5* 5.3* ALB -- 2.4* 2.4* 2.3* TBIL -- 0.3 0.4 0.4 ALKP -- 81 79 82 AST -- 21 23 19 ALT -- 23 24 23 TSH <0.005* -- -- -- Recent Labs Lab 10/30/21 1155 TROP 18 Recent Labs Lab 10/31/21 0714 11/01/21 0728 11/02/21 0637 INR 3.1 3.0 2.6 No results for input(s): CHOL, TRI, HDL, LDL in the last 168 hours. Tele: AF, stable vent rate I spent 25 minutes today reviewing the patient's medical record, obtaining history, performing an exam, ordering medications, tests, and/or procedures, documenting in the medical record, referring and/or communicating with other health care providers, counseling, and educating the patient/family/caregiver, reviewing and communicating test results, and coordination of care. TERE CEDILLO MD * Johanny Cowart PharmD - 11/02/2021 1:16 PM CDT Warfarin Pharmacy to Dose Day #10 Ordering Provider: Dr. Bell Indication: Afib, Mechanical AVR Goal INR: 2.5-3.5 Home Dose: 5 mg daily Date Dose INR H/H/PLT 10/22 held 3.7 9.2/31.1/178 10/23 held 3.7 8.1/27.3/155 8/18 4 mg 3.1 8.1/26.9/152 8/19 5 mg 2.6 7.9/26.4/151 8/20 4 mg 3.2 7.7/25.8/147 10/27 held 4.3 8.1/27.3/166 8/22 4 mg 3.4 7.6/26.1/162 8/23 3 mg 3.3 8.2/28.3/142 8/24 1 mg 3.5 7.5/25.8/171 8/25 3 mg 3.1 7.5/26.0/174 8/ 2.5 mg 3.0 7.9/26.1/185 8/ 2.6 7.5/24.9/177 Diet: Cardiac, low cholesterol (100% intake charted on 11/01) Interacting Medications: - Cefoxitin (started 10/27) A/P: Pt on home warfarin of 5 mg daily for Afib and mechanical AVR and is admitted with hypotension. 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 The INR decreased to 2.6 this morning, although still within goal (could still be reflective of 1 mg dose 10/30). H/H/plt stable. No s/sx of bleeding per notes. Will increase dose slightly to 3 mg x1 tonight. Daily INRs are ordered. Pharmacy will continue to follow. Thank you for the consult. * Fabio Treviño RN - 11/01/2021 11:44 PM CDT Problem: Reduced risk for falls/injury Goal: [...] and interventions as needed. Outcome: Progressing Problem: Mobility Goal: STG - Pt will ambulate Outcome: Progressing Goal: STG - Pt will ascend/descend stairs Outcome: Progressing Problem: Grooming Goal: STG - Pt will complete grooming while standing sink/tableside with Description: SBS/MOD I Outcome: Progressing Problem: Toileting Goal: STG - Pt will complete management (up/down) with Description: SBS/MOD I WITH WW Outcome: Progressing Problem: Transfers Goal: STG - Pt will perform a toilet transfer with Description: SBS/MOD I Outcome: Progressing * Chon Barros, COMM[employer]ITY [employer]ATIONS OFFICER - 11/01/2021 3:54 PM CDT 11/01/21 0900 Therapy Visit Ordering Provider [facility] Room 443B - Patient sitting in chair upon arrival. Patient states that her LE are sore, and that she would like to go back to bed at the end of treatment. Reason for admission OLIVE Relevant Comorbidities/ Personal Factors to PT 10/15/21 PNA and disch'd home 10/21/21 and returned dueto weakness, afib, aflutter, CAD, HTN, DM, HLD, GERD, HYPOTHYROIDISM Acute Inpatient PT Time Calculation PT Start Time 0900 PT Stop Time 0915 PT Time Calculation (min) 15 min Precautions General Precautions Bed Alarm;Chair Alarm;Fall Risk;Supplemental oxygen PPE Used Face mask;Gloves Instructed on Precautions Yes Pain Pain Yes Pain Score 2 Location Bilat LE, Hurts from swelling Activity Tolerance Endurance Tolerates 10 - 20 min activity with rests Endurance Quality Fair Limiting Factors to Endurance Acute deconditioning;Fatigue Cognition Orientation Level Oriented X4 Following Commands Follows one step commands without difficulty Safety Judgment Decreased awareness of need for safety TRANSFERS Sit to Stand Min assist;SBA/supervision Gait Gait Assistance Min assist Assistive Device 2 Wheeled walker Distance Ambulated (ft) 50 ft (Ambulated within the room on this date O2 stated on from wall.) Other (Comment) Mild foward flex posture, moderate royer, dec stride. Limited gait tolerance, as pt fatigues quickly and c/o increase B LE pain. No LOB noted or c/o SOB. Exercises Ankle Pumps Heel/Toe Taps 2 x 10 Reps Short Arc Quad LAQ's 2 x 10 Reps Glut Sets 5(H) x 10 Reps Hip Flexion Marching in sitting x 15 Reps Hip Abduction Seated Hip Abd/Add 2 x 10 Reps Patient/Family Training Bed Mobility x Transfer Training x Gait Training x Precautions x Exercise Program x Recommendation PT Recommendation Swing bed unit (or home with assistance and C pending progress) PT Equipment Recommended Currently has DME in Place Plan PT Treatments/Interventions Gait Training;Therapeutic Exercises;Therapeutic Activities Progress Progressing toward goals PT Frequency Daily;5 times/week End of Session End of Session Safety Chair alarm set/activated;Call light within reach;Nursing aware of session End of Session Comment Patient was returned to chair with her LE elevated and instructed to do 10 ankle pumps every hour to assist with LE swelling. Nursing aware. * Fátima Rushing - 11/01/2021 3:37 PM CDT I delivered the Reinforcement Important Message from Medicare (Subsequent IMM) to Ana Maria Hanna Jeramie and after explaining the form to the patient, the Patient signed the form. The Patient received acopy of the form for their records. 11/01/21 1537 Forms Reinforcement Important Message from Medicare (Subsequent IMM) Signed Copy delivered * Oneil Michelle RN - 11/01/2021 2:55 PM CDT Per IDRs, patient accepted to [facility], probable dc in 1-2 days. Cardiology increased IV lasix and will continue to monitor. RNCM will conitue to follow for discharge needs. 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 Lj aortic valve (on warfarin), hypertension, obstructive sleep apnea compliant with CPAP. CAD, diabetes mellitus, HTN, HLD admitted on 10/22/2021 5:53 PM with weakness Subjective: Patient is comfortable in chair. She is noted to be winded during conversation but exam findings donot support sig volume overload. Assessment: NSTEMI Echo done last admit showed EF was 40-45%, global hypokinesis. Changed from 08/27 study showing EF 50-55% and no regional WM abn. Coronary calcification on CT. Stress with no ischemia. Left bundle is not new. ?? Mechanical AVR Continue warfarin, INR goal is 2.5-3.5 INR today is?? 3.0- pharmacy dosing ?? MR, moderate ?? Acute combined CHF. Patient remains on 3L NC; no baseline need. BNP sig elevated this am with left basilar effusion on imaging. No sig edema or rales on posterior exam. IV lasix dosing increased to BID. Monitor response. ?? A. fib Vent rate controlled on BB dosing. Warfarin per pharm Dr. Paredes had previously stopped low dose amiodarone Reviewed tele, no VT seen. Likely a fib with RVR TSH<0.005 per others ?? Anemia Low, stable. Per others. Remains on warfarin dosing ?? Abn CT Concern for neoplasm with non-urgent f/u imaging recommended ?? Right MCA sacular aneurysm Appears stable from previous imaging per radiology read Plan: Increase lasix dosing and monitor response Review of Systems Constitutional: Positive for malaise/fatigue. Respiratory: Positive for shortness of breath and wheezing. Negative for cough. Cardiovascular: Negative for chest pain and leg swelling. Gastrointestinal: Negative for abdominal pain and nausea. Musculoskeletal: Positive for myalgias. Neurological: Positive for weakness. Negative for dizziness and headaches. Psychiatric/Behavioral: The patient is nervous/anxious. Objective: Scheduled Medications: ??? ceFOXItin 1 g Intravenous Q6H ??? furosemide 60 mg Intravenous BID ??? gabapentin 300 mg Oral BID ??? lidocaine 1 patch Transdermal Q24H ??? lisinopril 2.5 mg Oral Daily ??? methIMAzole 5 mg Oral Daily ??? metoprolol tartrate 12.5 mg Oral BID ??? morphine 1 mg Intravenous Once ??? pantoprazole EC 20 mg Oral Daily ??? senna-docusate 1 tablet Oral Nightly at bedtime ??? venlafaxine XR 150 mg Oral Daily with breakfast ??? warfarin (COUMADIN) pharmacy to dose Oral See Admin Instructions ??? warfarin 2.5 mg Oral Once acetaminophen, albuterol sulfate HFA, ALPRAZolam, calcium carbonate, dextrose 10 % bolus, glucagon,glucose, HYDROcodone-acetaminophen, ylxfuligh-sbednzam-lwoqmhqgdai, naLOXone, nitroglycerin, ondansetron, polyethylene glycol Vitals: Filed Vitals: 10/31/21201311/01/21 0100 11/01/21 0531 11/01/21 0737 BP: 111/50 110/62 92/51 133/63 Pulse: 78 83 96 112 Resp: Temp: 98.4 ??F (36.9 ??C) 97.6 ??F (36.4 ??C) 97.9 ??F (36.6 ??C) 98.2 ??F (36.8 ??C) TempSrc: Oral Oral Oral SpO2: 97% 95% 100% 97% Weight: Height: I/O: No intake or output data in the 24 hours ending 11/01/21 1058 Last 3 Recorded Weights 10/26/21 0445 10/29/21 0215 10/31/21 0500 Weight: 85.7 kg (188 lb 15 oz) 87.1 kg (192 lb) 88.8 kg (195 lb 12.3 oz) Physical Exam: Physical Exam Vitals reviewed. Constitutional: Appearance: She is well-developed. Comments: Thin, frail HENT: Head: Normocephalic and atraumatic. Nose: No mucosal edema. Mouth/Throat: Mouth: Mucous membranes are dry. Neck: Vascular: No JVD. Cardiovascular: Rate and Rhythm: Normal rate. Rhythm irregular. No extrasystoles are present. Heart sounds: S1 normal and S2 normal. Murmur heard. Pulmonary: Effort: Pulmonary effort is normal. No respiratory distress. Breath sounds: Normal breath sounds. No wheezing or rales. Abdominal: General: Bowel sounds are normal. There is no distension. Palpations: Abdomen is soft. Tenderness: There is no abdominal tenderness. Musculoskeletal: Cervical back: Neck supple. Right lower leg: No edema. Left lower leg: No edema. Skin: General: Skin is warm and dry. Neurological: Mental Status: She is alert and oriented to person, place, and time. Psychiatric: Behavior: Behavior normal. Thought Content: Thought content normal. Lab/Radiology/Diagnostic Review: Recent Labs Lab 10/30/21 0659 10/30/21 1155 10/31/21 0714 11/01/21 0728 WBC 4.4* -- 5.3 4.4* RBC 2.44* -- 2.45* 2.50* HGB 7.5* -- 7.5* 7.9* HCT 25.8* -- 26.0* 26.1* NA 142 -- 143 143 K 5.0 -- 4.9 4.8 CL 115* -- 115* 115* CO2 25.0 -- 25.9 26.4 AGAP 2.0* -- 2.1* 1.6* BUN 16 -- 15 16 CR 1.03* -- 0.99 1.02 BUNCREATININ 15.5 -- 15.1 15.7 GLU 81 -- 83 94 CA 9.8 -- 9.9 9.8 TP 5.4* -- 5.3* 5.5* ALB 2.3* -- 2.4* 2.4* TBIL 0.4 -- 0.3 0.4 ALKP 82 -- 81 79 AST 25 -- 21 23 ALT 25 -- 23 24 TSH -- <0.005* -- -- Recent Labs Lab 10/30/21 1155 TROP 18 Recent Labs Lab 10/30/21 0659 10/31/21 0714 11/01/21 0728 INR 3.5 3.1 3.0 No results for input(s): CHOL, TRI, HDL, LDL in the last 168 hours. Tele: AF, stable vent rate I spent 25 minutes today reviewing the patient's medical record, obtaining history, performing an exam, ordering medications, tests, and/or procedures, documenting in the medical record, referring and/or communicating with other health care providers, counseling, and educating the patient/family/caregiver, reviewing and communicating test results, and coordination of care. KAYCEE AMIN NP Cosigned by Tere Cedillo MD at 11/01/2021 2:24 PM CDT * Jason Montanez, MiladD, [facility] - 11/01/2021 10:40 AM CDT Warfarin Pharmacy to Dose Day #9 Ordering Provider: Dr. Bell Indication: Afib, Mechanical AVR Goal INR: 2.5-3.5 Home Dose: 5 mg daily Date Dose INR H/H/PLT 10/22 held 3.7 9.2/31.1/178 10/23 held 3.7 8.1/27.3/155 10/24 4 mg 3.1 8.1/26.9/152 8 5 mg 2.6 7.9/26.4/151 10/26 4 mg 3.2 7.7/25.8/147 10/27 held 4.3 8.1/27.3/166 10/28 4 mg 3.4 7.6/26.1/162 8 3 mg 3.3 8.2/28.3/142 8 1 mg 3.5 7.5/25.8/171 10/31 3 mg 3.1 7.5/26.0/174 11/01 3.0 7.9/26.1/185 Diet: Cardiac, low cholesterol (100% intake charted on 10/30) Interacting Medications: - Cefoxitin (started 10/27) - Azithromycin (10/24-10/26) - Cefdinir (home med, stopped 10/26) - Methimazole (home med) A/P: Pt on home warfarin of 5 mg daily for Afib and mechanical AVR and is admitted with hypotension. 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 The INR is 3.0 this morning, the decrease has slowed. Will administer the average dose of 2.5mg fortonight. Will continue to monitor daily INR's. The patient remains on cefoxitin. * Herlinda Ayala DO - 11/01/2021 8:58 AM CDT Hospitalist Daily Progress Note Subjective Patient seen and examined this morning. She is sitting up in the chair on exam. Reports worsening lower leg swelling. Denies shortness of breath. Tolerating PO. Objective Filed Vitals: 10/31/21 2014 11/01/21 0100 11/01/21 0531 11/01/21 0737 BP: 111/50 110/62 92/51 133/63 Pulse: 78 83 96 112 Resp: 20 18 23 Temp: 98.4 ??F (36.9 ??C) 97.6 ??F (36.4 ??C) 97.9 ??F (36.6 ??C) 98.2 ??F (36.8 ??C) TempSrc: Oral Oral Oral SpO2: 97% 95% 100% 97% Weight: Height: Intake/Output 24H Total: No intake or output data in the 24 hours ending 11/01/21 0858 Physical Exam: General: No acute distress, breathing comfortably on NC Eyes: Extraocular movements intact ENT: Neck supple, Septum is midline. Lungs: Diminished breath sounds bilateral bases Cardiovascular: Regular rate rhythm, S1 and S2 normal, No murmurs Abdomen: Soft, nondistended, Nontender, Bowel sounds observed Extremities: Trace lower extremity edema. Neurological: Alert, awake, oriented x3, No gross neuro deficit Skin: Skin color, texture, turgor normal. No rashes or lesions Medications ??? ceFOXItin 1 g Intravenous Q6H ??? furosemide 20 mg Oral Daily ??? gabapentin 300 mg Oral BID ??? lidocaine 1 patch Transdermal Q24H ??? lisinopril 2.5 mg Oral Daily ??? methIMAzole 5 mg Oral Daily ??? metoprolol tartrate 12.5 mg Oral BID ??? morphine 1 mg Intravenous Once ??? pantoprazole EC 20 mg Oral Daily ??? senna-docusate 1 tablet Oral Nightly at bedtime ??? venlafaxine XR 150 mg Oral Daily with breakfast ??? warfarin (COUMADIN) pharmacy to dose Oral See Admin Instructions acetaminophen, albuterol sulfate HFA, ALPRAZolam, calcium carbonate, dextrose 10 % bolus, glucagon,glucose, HYDROcodone-acetaminophen, zxuefqbtj-pklyuwos-sruhpqylcrc, naLOXone, nitroglycerin, ondansetron, polyethylene glycol Labs, Imaging, Other Studies Recent Labs Lab 10/26/21 0415 10/27/21 0737 10/28/21 0805 10/29/21 0704 10/30/21 0659 10/31/21 0714 11/01/21 0728 WBC 4.4* 5.0 4.5 4.7 4.4* 5.3 4.4* RBC 2.47* 2.60* 2.49* 2.63* 2.44* 2.45* 2.50* HGB 7.7* 8.1* 7.6* 8.2* 7.5* 7.5* 7.9* HCT 25.8* 27.3* 26.2* 28.3* 25.8* 26.0* 26.1* MCV 104.5* 105.0* 105.2* 107.6* 105.7* 106.1* 104.4* MCH 31.2* 31.2* 30.5 31.2* 30.7 30.6 31.6* MCHC 29.8* 29.7* 29.0* 29.0* 29.1* 28.8* 30.3* PLT 147 166 162 142 171 174 185 RDW 12.2 12.2 12.1 12.4 12.2 12.3 12.2 MPV 13.4* 13.3* 13.6* 13.7* 13.1* 13.1* 13.3* PERNEU 51.5 57.8 60.1 59.1 55.7 61.6 54.4 PERLYM 21.4 20.0 17.4 17.5 20.2 17.6 22.3 PERMON 20.8 16.6 17.2 17.7 17.7 15.3 17.3 LYMC 0.95* 1.00 0.78* 0.83* 0.89* 0.93* 0.99* MONOC 0.92* 0.83 0.77 0.84 0.78 0.81 0.77 EOSC 0.24 0.22 0.19 0.20 0.21 0.24 0.21 BASOC 0.03 0.05 0.04 0.05 0.05 0.04 0.05 DTYPE AUTOMATED DIFFERENTIAL AUTOMATED DIFFERENTIAL AUTOMATED DIFFERENTIAL AUTOMATED DIFFERENTIAL AUTOMATED DIFFERENTIAL AUTOMATED DIFFERENTIAL AUTOMATED DIFFERENTIAL Recent Labs Lab 10/27/21 0737 10/28/21 0805 10/28/21 1922 10/29/21 0704 10/30/21 0659 10/31/21 0714 11/01/21 0728 NA 140 143 141 144 142 143 143 K 5.1 5.4* 5.2* 5.2* 5.0 4.9 4.8 CL 113* 115* 113* 115* 115* 115* 115* CO2 24.6 26.1 26.9 25.8 25.0 25.9 26.4 AGAP 2.4* 1.9* 1.1* 3.2* 2.0* 2.1* 1.6* BUN 25* 20* 19* 17 16 15 16 CR 0.97 1.12* 1.10* 0.93 1.03* 0.99 1.02 BUNCREATININ 25.8 17.9 17.3 18.4 15.5 15.1 15.7 GLU 94 90 136* 95 81 83 94 CA 9.6 9.6 9.6 10.1 9.8 9.9 9.8 TP 6.2* 5.4* 5.6* 5.8* 5.4* 5.3* 5.5* ALB 2.5* 2.2* 2.3* 2.5* 2.3* 2.4* 2.4* TBIL 0.3 0.3 0.3 0.4 0.4 0.3 0.4 ALKP 92 83 86 86 82 81 79 AST 28 25 22 25 25 21 23 ALT 25 22 23 25 25 23 24 Recent Labs Lab 10/30/21 1155 TSH <0.005* Recent Labs Lab 10/30/21 0659 10/31/21 0714 11/01/21 0728 INR 3.5 3.1 3.0 Recent Labs Lab 10/30/21 1155 TROP 18 No results for input(s): LACTICACID, PROCT in the last 168 hours. No results for input(s): PH, PCO2, PO2, [id number], BICARBWB, BASEDEFICIT, BASEEXCESS in the biei300 hours. No results found for this or any previous visit. Imaging ULTRASOUND GENERIC Result Date: 10/03/2021 Ordered by an unspecified provider. CT GENERIC Result Date: 10/03/2021 Ordered by an unspecified provider. CT ABD+PEL WO CON Result Date: 10/27/2021 EXAMINATION: CT Abdomen and Pelvis without contrast EXAM DATE/TIME: :01 AM REASON FOR EXAM: Abdominal pain, acute, nonlocalized COMPARISON: 09/17/2021 CT abdomen and pelvis TECHNIQUE: Axial CT images of the abdomen and pelvis are obtained without the use of IV contrast agent. Subsequent coronal and sagittal reformatted sequences are created for evaluation. A dose lo wering technique was used for this procedure, which may include, but is not limited to, dose reduction technique, automated exposure control, iterative reconstruction, ALARA (As Low As Reasonably Achievable), or Image Gently techniques. FINDINGS: Small right and tiny left pleural effusions. Breathing motion artifact in the lung bases. No convincing pulmonary nodules or masses. Heart size enlarged. Coronary artery calcifications. No pericardial effusion. Low-density blood pool suggestive of anemia. The liver and spleen are normal in size and contour. Fatty atrophy of the pancreas. Gallbladder and adrenal glands grossly unremarkable on this noncontrast study. Small area of calcifications overthe anterior right hepatic lobe similar to prior exam. This may be an area of old healed trauma or hemorrhage. Soft tissue density area of nodularity near the gallbladder fundus. This is similar in size to the prior exam. No hydronephrosis or obstructive uropathy on either side. Abdominal aorta normal in caliber throughout with extensive calcifications. Bowel is normal in caliber throughout. No evidence of bowel obstruction. No free fluid in the pelvis. Bladder contours grossly unremarkable. Bladder is decompressed. Atrophic or postsurgical uterus. The appendix is normal. Mild scattered diverticular disease. Short segment length of sigmoid colon with diffuse wall thickening and minimal surrounding inflammatory stranding. This is slightly worsened from prior study. No evidence of perforation or abscess formation within limitations of this noncontrast exam. This could represent acute diverticulitis. Neoplasm is not entirely excluded. Multilevel degenerative changes in the thoracolumbar s pine with no convincing acute osseous abnormality. ===== IMPRESSION: ===== 1. Length of sigmoid colon in the mid pelvis with diffuse wall thickening and surrounding inflammatory stranding mildly worsened from comparison exam. No perforation or abscess formation identified within limits of this noncontrast exam. Acute diverticulitis is favored. Underlyingneoplasm not excluded. Follow-up recommended to ensure resolution. 2. Focal nodularity in the gallbladder wall is indeterminate but concerning for neoplasm. Follow-up nonemergent right upper quadrantultrasound recommended if not previously obtained elsewhere. 3. Small right and tiny left pleural effusions 4. Coronary artery calcifications and atherosclerotic aorta 5. Low-density blood pool raises suspicion for anemia Referred By: Interpreted By: Quoc Wilkinson MD, 10/27/2021 9:20 AM CTA CHEST Result Date: 10/15/2021 Examination: CTA CHEST Clinical history: Chest pain Comparison: X-ray, same date DATE/TIME: 10/15/2021 5:13 PM Technique: Multiplanar images of the chest were obtained following the uneventful intravenous administration of 80 mL Isovue 370. 3D Post-processed images were reconstructed on an independent workstation. A dose lowering technique was used for this procedure, which may include, but is not limited to, dose reduction technique, automated exposure control, the use of iterative reconstruction, and ALARA (As Low As Reasonably Achievable) / Image Gently techniques. Findings: There is adequate pulmonary artery opacification. No evidence of pulmonary embolism. Mild to moderate cardiomegaly. Aortic valve prosthesis. Coronary artery calcifications. No pericardial effusion. Thoracic aorta is normal caliber. No mediastinal or hilar lymphadenopathy. No evidence of pneumonia or pulmonary edema. No pleural effusion or pneumothorax. Thoracic compression deformity of T6 with 75% anterior heightloss, appearing chronic. There is minimal retropulsion into the spinal canal with Mild spinal canal narrowing. Sternotomy. Thoracic spondylosis. IMPRESSION: 1. No evidence of pulmonary embolism or other acute findings. 2. Cardiomegaly. 3. Otherchronic or nonurgent findings as described above. Referred By: Interpreted By: Estevan Martines MD, 10/15/2021 5:52 PM CTA HEAD Result Date: 10/23/2021 DATE: 10/22/2021 12:37 PM INDICATION: Right MCA aneurysm. EXAMINATION: CT angiography of the head. TECHNIQUE: CT angiography of the head was performed after uneventful intravenous administration of 80mL IOPAMIDOL 76 % IV SOLN. CT dose reduction techniques were utilized. Axial and 3-D/MIP images were reconstructed and reviewed. Additional 3-D reconstructions and/or postprocessing were performed on a separate dedicated 3-D workstation. A dose lowering technique was used for this procedure, which may include, but is not limited to, dose reduction technique, automated exposure control, the use of iterative reconstruction, and ALARA (As Low As Reasonably Achievable) / Image Gently techniques. COMPARISON: Report from catheter angiography performed 08/10/2020, images not available for direct comparison. FINDINGS: CTA HEAD: There is a 3-4 mm vascular outpouching at the right MCA bifurcation, corresponding to patient's known right MCA aneurysm. Scattered atherosclerotic calcifications seen along t he cavernous and supraclinoid ICA segments, but with less than 50% narrowing suggested. Left BARRIE [id number] is developmentally hypoplastic. Anterior communicating artery is patent. Otherwise the proximal portions of the anterior and middle cerebral arteries are patent. Atherosclerotic calcifications seen along the vertebral artery V4 segments, without significant narrowing. Basilar artery patent to the terminus. 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 Proximal portions of the posterior cerebral arteries, superior cerebellar arteries, and PICA branches are patent. Right posterior communicating artery not well- visualized. SOFTTISSUES: Small vessel disease and volume loss. Bilateral lens replacements. IMPRESSION: 1. 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 Similar findings described on prior catheter angiography examination 08/10/2020, though no images are available for direct comparison. Ordered By: SULEMAN WEBSTRE Interpreted By: Dale Brush MD, 10/23/2021 9:21 AM USV NEGRITA DUPLEX LOW EXT RT Result Date: 10/21/2021 VENOUS DUPLEX IMAGING RIGHT LOWER EXTREMITY VASCULAR LAB Pat.Name: ANA MARIA BOBO HANNA Pat.ID: [id number] St.Date: 10/15/2021 Exam Time: 4:09:00 PM Study Type:TOYA VS Venous Duplex Leg Rt Age: 3 1945,76Y Sex: FEMALE Sonogrphr: Diana Bronson RVT Pat. Stat.:Outpatient Room: ER History / Clinical:Chest pain. Calf injury, redness, edema. PMH, cad, dm, htn, ckd, hld, copd Procedures: Carrillo scale, Color Doppler imaging, Doppler Spectral Analysis Race: W ++++++++++++++++++++++++++++++++++++ SUMMARY: ++++++++++++++++++++++++++++++++++++ Right leg: There are NO apparent, deep or superficial vein, ACUTE character venous filling defects visualized in the femoral, popliteal, deep calf or proximal saphenous veins. Resting venous flow is normal phasic proximally. No valve reflux with compression maneuvers is detected in the femoral and popliteal veins. Left leg LIMITED: Resting venous flow isnormal phasic at the common femoral. No valve reflux with compression maneuvers is detected in the common femoral vein. CONCLUSION: Normal study right lower extremity, with no evidence of acute deep or superficial vein thrombosis. There is no significant reflux detected. ++++++++++++++++++++++++++++++++++++ FINDINGS: ++++++++++++++++++++++++++++++++++++ Signed 10/21/2021 12:57 PM José Kaiser M.D. XR CHEST PA+LAT Result Date: 11/01/2021 EXAMINATION: PA AND LATERAL CHEST Exam date/time: 11/01/2021 8:15 AM Reason For Exam: Shortness of breath and congestive heart failure Comparison: 10/22/2021 Technique: 2 views. Findings: Cardiomegaly. Small bilateral pleural effusions with associated atelectasis. Pulmonary venous congestion, possibly mild edema. Overall, stable. No pneumothorax. ===== IMPRESSION:===== Small bilateral pleural effusions with associated atelectasis. Pulmonary venous congestion, possibly mild edema. Overall, stable. Referred By: Interpreted By: Jarvis Munoz MD, 11/01/2021 8:18 AM XR CHEST PA+LAT Result Date: 10/19/2021 Examination: Chest x-ray 2 view Exam Date/Time: 10/19/2021 7:00 AM Reason For Exam: chf Comparison: 10/15/2021 chest radiograph Technique: PA and lateral views of the chest were obtained. Findings: Heart size prominent but stable from prior study. Post sternotomy changes again seen including fractured wires. Atherosclerotic aorta. Increased AP dimensional airspace and flattening of diaphragms. Pulmonary vascularity stable from prior study. Interval worsening of opacities at the lung bases more so on the left obscuring diaphragm shadow on frontal view. Upper lungs clear. ======== IMPRESSION: ======== 1. Developing opacity at the anterior left lung base may be infiltrate or atelectasis. Stable interval appearance of the chest otherwise. Referred By: Interpreted By: Quoc Wilkinson MD, 10/19/2021 7:10 AM XR CHEST PORTABLE Result Date: 10/22/2021 Exam: Chest x-ray Comparison 10/19/2021 INDICATION: Recent hospital discharge for pneumonia. Dyspnea. TECHNIQUE: One view FINDINGS: The heart is enlarged. Median sternotomy and valve replacement. Central pulmonary vessels are partially obscured but are within normal limits for size. The right lung is clear. Indistinctness of the left lung base and hemidiaphragm. Uncertain significance with portable technique and superimposed soft tissues. There could be a component of lung opacification or smallpleural effusion present. No substantial change from the prior exam allowing for differences in patient positioning. The remainder of the left lung is clear. IMPRESSION: 1. Enlarged heart. 2. Artifact versus some mild increased density in the left lung base. Referred By: Interpreted By: Neel Basurto MD, 10/22/2021 6:20 PM XR CHEST PORTABLE Result Date: 10/15/2021 Examination: Chest 1 view portable History: Chest pain DATE/TIME: 10/15/2021 1:17 PM Comparison: NoneTechnique: AP upright portable view of the chest was obtained. Findings: Sternotomy. Heart size andmediastinal contours are normal. Borderline pulmonary vasculature. No pulmonary consolidation, pleural effusion or pneumothorax. No acute osseous abnormality. Old left clavicle fracture. Impression: 1. No acute infiltrate. 2. Borderline vascular congestion. Referred By: Interpreted By: Estevan Martines MD, 10/15/2021 1:[address] CHEST WO CON Result Date: 10/25/2021 EXAMINATION: CT Chest without contrast EXAM DATE/TIME: 10/25/2021 8:24 AM REASON FOR EXAM: 76 female. 'LLL pneumonia vs effusion? Pneumonia, effusion or abscess suspected, xray done' COMPARISON: Chest x-ray 10/22/2021; CT chest 10/15/2021 TECHNIQUE: Computed tomography of the chest was obtained without administration of intravenous contrast. A dose lowering technique was used for this procedure, which may include, but is not limited to, dose reduction technique, automated exposure control, the use of iterative reconstruction, and ALARA (As Low As Reasonably Achievable) / Image Gently techniques. FINDINGS: Stable mild/moderate four-chamber cardiomegaly. Slightly decreased attenuation cardiac blood pool suggesting anemia. Sequela of prior cardiac surgery with sternotomy changes. Replaced aortic valve. Coronary artery disease. No pericardial effusion. The moderate thoracic aortic atherosclerosis. Normal diameter. No overt central pulmonary arterial enlargement. No suprac lavicular adenopathy. Borderline mediastinal precarinal lymph node measures 1 cm in short axis axis. No other potential adenopathy in the chest. Trace nondrainable right pleural fluid; even less equivocal trace left pleural fluid. The slight diaphragmatic eventration. Stable wedge-shaped left lowerlobe anterior basal segment suspected subsegmental atelectasis in addition mild dependent subsegmental atelectasis at the lung bases. Few other nonspecific minimal streaky linear densities. Scatteredareas of subtle interlobular septal thickening anterior upper lobes and lung bases may represent element of fluid overload. No confluent consolidation, focal pulmonary nodule or mass. Central and distal airways are clear. No thickening or mucous plugging seen. Unenhanced images of the upper abdomenshow nonspecific hepatomegaly. Midthoracic vertebral body severe compression deformity. Multilevel degenerative spondylosis and 1 demineralization. No concerning focal lytic or blastic lesion seen. IMPRESSION:===== 1. Stable four-chamber cardiomegaly with mild anemia. 2. Trace nondrainable dependent left pleural effusion and even less equivocal trace left pleural fluid. 3. Stable focal left lower lobe anterior basal subsegmental atelectasis and minimal dependent subsegmental atelectasis. 4. Scattered subtle interlobular septal thickening may indicate an element of fluid overload. 5. No other acute or chronic significant airspace or airway finding. 6. Other nonemergent, incidental, stable and potential chronic findings as discussed in the report body above. Ordered By: SULEMAN DUEÑAS Interpreted By: Rangel Dominguez MD, 10/25 8:38 AM NM PHARM NUC STRESS TEST 1DAY Result Date: 10/31/2021 Myocardial Perfusion Imaging Pat.Name: ANA MARIA BOBO Pat.ID: [id number] St.Date: 10/31/2021efer.MD: Zoey Ricks [id number] Exam Time: 8:30:00 AM Study Type:TOYA NC HT MUSCLE IMAGE SPECT MULTI Height: 64in Weight: 192lb BSA: 1.92 m2 Age: 3 1945,76Y Sex: FEMALE Sonogrphr: IZAIAH Irvin Pat. Stat.:Inpatient Reason for Study: Chest pain, Evaluation of known CAD, Congestive heart failure, Atrial flutter History / Clinical: Atrial fibrillation, Diabetes, Dyslipidemia, Hypertension, Sleep Apnea Procedures: Nuclear Stress Test with Lexiscan Race: W Surgery: Echocardiogram, Aortic Valve Replacement ++++++++++++++++++++++++++++++++++++ SUMMARY: ++++++++++++++++++++++++++++++++++++ Stress conclusion: 1. Clinically negative. 2. Electrocardiographically [...] overall low risk for a cardiac event. ++++++++++++++++++++++++++++++++++++ FINDINGS: ++++++++++++++++++++++++++++++++++++ Protocol: Lexiscan 0.4mg was given as a rapid injection IV over a period of 10 seconds with the radiopharmaceutical injected at 20 seconds. The images were processed using the standard SPECT technique. A gated study was performed on the stress images. Impression: SPECT images demonstrate normal perfusion of normal intensity. Heart Size: The left ventricleis normal. LV Wall Motion: The LVEF is calculated to be 51%. Gated SPECT images abnormal normal wall motion due to Left bundle branch block. Gated SPECT images reveal global hypokinesis. Transient Ischemic Dilatation: The TID is 1.04. There is no evidence of Transient Ischemic Dilatation. ++++++++++ ++++++++++++++++++++++++++ STRESS: ++++++++++++++++++++++++++++++++++++ Baseline Vital Signs: Intervention Regadenoson ECG Atrial Fibrillation, Left bundle branch blockPeak Dose 0.4 mg HR 82 Atropine0 Rest BP 139/64 Stress Test Results: Max. HR 127 Pred. Max. Heart Rate (100%) 143 % Target: 89 % Max BP 147/60 O2 Sat 100 % Max RPP [id number] Symptoms and Complications: Terminated Protocol completed Symptoms Chest pain, Dizziness, Headache, Nausea Complications None Stress ECG Interp Atrial Fibrillation, Left bundle branch block Signed 10/31/2021 01:50 PM Tere Cedillo M.D. MRI BRAIN WO CON Result Date: 10/25/2021 EXAMINATION: MRI BRAIN WO CON, 10/25/2021 10:53 PM TECHNIQUE: Axial and sagittal T1, axial T2, axialDWI, axial and sagittal T2 FLAIR, as well [...] (best seen on series 8 image 10), b elaine characterized on prior CT head examination from 10/22/2021. The proximal intracranial arterialflow voids otherwise have a normal appearance. Prior bilateral ocular lens extractions with prosthetic lens implantation. The orbital contents otherwise appear within normal limits. The paranasal sinuses and mastoid air cells are well aerated. IMPRESSION: 1. No acute intracranial abnormality. 2. Moderate global cerebral volume loss and mild to moderate chronic small vessel ischemic change. 3. Redemonstrated right MCA bifurcation saccular aneurysm, similar to the prior CT head examination from 10/22/2021. Referred By: Electronically SignedBy: José Almeida MD on 10/25/2021 10:58 PM Interpreted By: José Almeida MD, 10/25/2021 10:52 PM USE ECHOCARDIOGRAM W CON Result Date: 10/16/2021 Echocardiography Report Pat.Name: ANA MARIA BOBO Pat.ID: [id number] St.Date: 10/16/2021 Exam Time: 3:01:00 PM Study Type:ECHO WITH CARDIAC DOPPLER COMP Height: 64in Weight: 183.62lb BSA: 1.89 m2DOB Age: 3 1945,76Y Sex: FEMALE BP: 115/57 HR: 91 bpm Sonogrphr: Becky Martel [facility] Pat. Stat.: Inpatient Room: [facility] Reason for Study: Aortic valve replacement, Congestive heart failure, Dyspneaon exertion, Murmur History / Clinical: Chest pain. Calf injury, redness, edema. PMH, cad, dm, htn,ckd, hld, copd Procedures: 2D, M-mode, Doppler, Color Flow, Definity was used to enhance endocardial definition., The study quality is technically difficult. Race: W ++++++++++++++++++++++++++++++++++++ SUMMARY: ++++++++++++++++++++++++++++++++++++ The left ventricular size is normal. Estimated left ventricular ejection fraction is 40-45%. Moderate concentric left ventricular hypertrophy. Left ventricular diastolic function is abnormal (grade 2 - pseudonormal pattern). ?Moderate global hypokinesis is noted. The right ventricular size is normal. Right ventricular systolic function is moderately depressed. A mechanical valve is in the aortic position with post-deployment peak velocity of 3.53m/sec, mean gradient of 31mmHg and a calculated YADIRA of 1.10cm2. Right ventricular systolic pressure is 40-50 mmHg suggestive of mild to moderate pulmonary hypertension. Mild to moderate tricuspid regurgitation. Moderate mitral regurgitation. ++++++++++++++++++++++++++++++++++++ FINDINGS: ++++++++++++++++++++++++++++++++++++ LV: The left ventricular size is normal. Estimated left ventricular ejection fraction is 40-45%. Moderate concentric left ventricular hypertrophy. Left ventricular diastolic function is abnormal (grade 2 - pseudonormal pattern). WM: Moderate global hypokinesis is noted.RV: The right ventricular size is normal. Right ventricular systolic function is moderately depressed. IVS: No evidence of ventricular septal defect. LA: The left atrial size is mildly enlarged. Theleft atrial volume is mildly increased (34- 41ml/M2). RA: Right atrial size is mildly enlarged. IAS: Atrial septum appears intact. DENICE: No evidence of pericardial effusion. AO: Normal aortic root. PA: Estimated right atrial pressure of 15 mmHg. SVn: Inferior vena cava is mildly enlarged. Inferiorvena cava shows <50% collapse with respiration consistent with elevated right atrial pressure. AV: Mechanical prosthetic aortic valve seen. A trace of denice-prosthetic aortic valve regurgitation. Amechanical valve is in the aortic position with post-deployment peak velocity of 3.53m/sec, mean gradient of 31mmHg and a calculated YADIRA of 1.10cm2. MV: Moderate mitral regurgitation. No evidence of mitral stenosis. PV: No evidence of pulmonic valve stenosis. Mild pulmonic regurgitation. TV: Mild to moderate tricuspid regurgitation. Right ventricular systolic pressure is 40-50 mmHg suggestive of m ild to moderate pulmonary hypertension. No evidence of tricuspid valve stenosis. ++++++++++++++++++++++++++++++++++++ MEASUREMENTS: ++++++++++++++++++++++++++++++++++++ DOPPLER LVOT LVOTpkPG 8 mmHg LVOTmnPG 4 mmHg LVOTpkVel 141 cm/s (70-110)+* LVOT SV 83 ml LVOT TVI 26.3 cm Right Atrium RA Press 15 mmHg Ayala's Disk 20 AV Forward Flow AV TVI 51.2 cm AV pkPG 37 mmHg AV pkVel 305 cm/s (100-170)+* Area (TVI) 1.61 cm2 (3-5)* AV mnPG 21 mmHg Area (Randall) 1.45 cm2 (3-5)* AV Regurg Flow AV pkVel 381 cm/s AV P1/2t 290 ms AV pkPG 58 mmHg MV Forward Flow MV DeTm 257 ms MV pkPG 9 mmHg MV mnPG 3 mmHg MVpkE 134 cm/s (60-130)+* PV Forward Flow PV pkVel 96.4 cm/s (60-90)* PV AC 109 ms PV pkPG 4 mmHg TV Regurg Flow TV pkPG 26 mmHg TV pkVel 253 cm/s (30-70)+* Right Ventricle RVsys P 41 mmHg Right Ventricle 5.32 cm/s Lat E' Lat e 7.2 cm/s Lat E/E' Lat E/e 18.6 Med E' Med e 4.94 cm/s Med E/E' Med E/e 27.1 Aortic Valve Aortic Valve Ar 0.85 Aortic Valve Ve 0.46 PV Antegrade Flow Acceleration Sl 573 cm/s2 TAPSE Distance 8 mm 2D Left Ventricle LVIDd 4.8 cm (3.6-5.2)+ LV ESV 52.6 ml LVIDs 3.63 cm (2.3-3.9)+ LV ESV 46.2 ml LngAxd 7.03 cm LVESV BP 50.5 ml LngAxd 7.4 cm LV EF 36.1 % LV EDV 82.2 ml LV EF42.7 % LV EDV 80.4 ml LV EF BP 38.7 % LVEDV BP 82.4 ml LV SV 29.6 ml LngAxs 6.96 cm LV SV 34.4 ml LngAxs 7.36 cm LV SV BP 31.9 ml LVPW LVPWd 1.36 cm Ventricular Septum IVSd 1.32 cm Left Atrium LA VOLBP 72.9 ml Aorta Ao Rtd 2.4 cm LVOT LVOT 2 cm LVOTArea 3.14 cm2 Ratios IVS LA Biplane LAVol I BP 38.6 ml/m2 RA Single Plane Right Atrium MO 13.4 mm Right Atrium Sy 51.1 ml Right Atrium Sy 64.4 mm Right Atrium Sy 27 ml/m2 Right Atrium Sy 20 cm2 Right Ventricle Right Ventricle 27 mm Right Fygswryni79.8 mm Major [place] [facility] 77.7 mm Signed 10/16/2021 06:42 PM Tere Cedillo M.D. EKG: Results for orders placed or performed during the hospital encounter of 10/22/21 ECG 12 lead Narrative [facility] [address] [place] [address] Test Date: 2021-10-22 Pat Name: ANA MARIA BOBO Department: 41 Room: B443 Gender: Female Credit Report Checker: : 1945 Requested By: SANJANA BATES Order Number: [id number] Reading MD: Sanjana Ludwig Measurements Intervals [place] Rate: 86 P: MS: 0 QRS: -37 QRSD: 160 T: 98 QT: 411 QTc: 494 Interpretive Statements ATRIAL FIBRILLATION LEFT AXIS DEVIATION [QRS AXIS < -30] LEFT BUNDLE BRANCH BLOCK [120+ ms QRS DURATION, 80+ ms Q/S IN V1/V2, 85+ ms R IN I/aVL/V5/V6] Compared to ECG 10/15/2021 17:09:13 Left-axis deviation now present ECG 12 lead Narrative [facility] [address] [place] [address] Test Date: 2021-10-28 Pat Name: ANA MARIA BOBO Department: 40 Room: [id number] Gender: Female Credit Report Checker: : 1945 Requested By: ASHU DENG Order Number: [id number] Reading MD: Tere Cedillo Measurements Intervals [place] Rate: 94 P: MS: 0 QRS: -39 QRSD: 159 T: 89 QT: 365 QTc: 458 Interpretive Statements ATRIAL FIBRILLATION LEFT BUNDLE BRANCH BLOCK [120+ ms QRS DURATION, 80+ ms Q/S IN V1/V2, 85+ ms R IN I/aVL/V5/V6] Compared to ECG 10/22/2021 18:11:32 No significant changes ECG 12 lead Narrative [address] Test Date: 2021-10-30 Pat Name: ANA MARIA BOBO Department: 40 Room: [facility] Gender: Female Credit Report Checker: : 1945 Requested By: ASHU DENG Order Number: [id number] Reading MD: Tere Cedillo Measurements Intervals [place] Rate: 88 P: MS: 0 QRS: -26 QRSD: 158 T: 116 QT: 380 QTc: 462 Interpretive Statements ATRIAL FIBRILLATION LEFT BUNDLE BRANCH BLOCK [120+ ms QRS DURATION, 80+ ms Q/S IN V1/V2, 85+ ms R IN I/aVL/V5/V6] Compared to ECG 10/28/2021 18:07:07 Left-axis deviation no longer present Assessment & Plan NSVT 10/28 patient had 9 beat run of Vtach, asymptomatic F/u EKG, electrolytes C/w BB telemetry ?? Acute diverticulitis F/u CT abd/pelvis revealed acute diverticulitis Start cefoxitin IV- discontinue Will consult GI if pain does not improve Cannot start IVF at this time d/t heart failure No symptoms on exam, stop abx, monitor ?? Hypotension Suspect over diuresis and poor oral intake following discharge as contributing factors. ?? Patient status post 2 L normal saline given in the emergency room. ?? We will hold on further IV fluid resuscitation at this time. ?? Holding outpatient oral antihypertensive medications and diuretics. ?? F/u BMP Monitor VS and pulse ox Fall precautions 10/25 resume lasix and BB tomorrow AM per cardiology if BP stable 10/26 remains hypotensive today; lasix resumed, then held per cardiology; BB on hold 10/31 improving BP, stable Resolved ?? NSTEMI Cardiology consulted Start ASA 81 mg per cardiology Telemetry Stress test: no ischemia ?? Acute on chronic renal failure suspect seconday to hypotension possible diuresis and continued administration of nephrotoxic medications and reduced oral intake. Medications reviewed will hold nephrotoxic medications. Status post 2 L normal saline to achieve and maintain euvolemia. ?? Given history of heart failure monitor volume status closely avoid hypotension Renally dose medications. ?? F/u BMP Resolving Acute on chronic heart failure reduced ejection fraction pBNP 14,562 CXR 11/01: Small bilateral pleural effusions. planning assistant Is & 0s, daily weights IV lasix started per cardiology Continue cardiac medications as indicated. ?? Possible CAP Patient afebrile no leukocytosis Pulm consulted Sputum culture: normal betty Antibiotics discontinued per pulmonology ?? Acute hypoxic respiratory failure: Secondary to the above patient continues to be maintained on 2 L nasal cannula 1 L while sleeping Patient also found to have respiratory acidosis Started BiPAP, now dc'd Pulm consulted Less concerning for PNA-stop abx Monitor with IV diuresis Improving- on 3L NC, wean as tolerated ?? A. fib currently rate controlled Sroke risk reduction with Coumadin Continue BB INR goal 2.5-3.5 for mechanical valve, pharmacy to dose. ?? Hyperlipidemia Continue statin ?? Hyperthyroidism Continue methimazole follow-up PCP Consider endocrinology referral ?? GERD Continue PPI Anemia No signs of active bleeding Monitor CBC ?? Right MCA aneurysm Noted on CTA Also noted per radiology on prior imaging, though direct comparison not available Neurology consulted MRI brain: Redemonstrated right MCA bifurcation saccular aneurysm, similar to the prior CT head examination from 10/22/2021 EEG normal Close follow up after discharge Abnormal abdominal imaging Length of sigmoid colon in the mid pelvis with diffuse wall thickening and surrounding inflammatorystranding mildly worsened from comparison exam. No perforation or abscess formation identified within limits of this noncontrast exam. Acute diverticulitis is favored. Underlying neoplasm not excluded. Follow- up recommended to ensure resolution. Focal nodularity in the gallbladder wall is indeterminate but concerning for neoplasm. Follow-up nonemergent right upper quadrant ultrasound recommended if not previously obtained elsewhere. Close outpatient follow up for further imaging ?? - DVT prophylaxis:??Coumadin - Diet/IVF:??Cardiac - Code status: Full code Other changes to plan of care to be made based on progress during hospitalization. All plans discussed with RN and patient/patient's family/house supervisor. They are agreeable with plan and voiced understanding. HERLINDA AYALA DO 11/01/2021 8:58 AM * Fabio Treviño RN - 11/01/2021 3:53 AM CDT Problem: Reduced risk for falls/injury [...] and interventions as needed. Outcome: Progressing Problem: Mobility Goal: STG - Pt will ambulate Outcome: Progressing Goal: STG - Pt will ascend/descend stairs Outcome: Progressing Problem: Grooming Goal: STG - Pt will complete grooming while standing sink/tableside with Description: SBS/MOD I Outcome: Progressing Problem: Toileting Goal: STG - Pt will complete management (up/down) with Description: SBS/MOD I WITH WW Outcome: Progressing Problem: Transfers Goal: STG - Pt will perform a toilet transfer with Description: SBS/MOD I Outcome: Progressing * Tere Cedillo MD - 10/31/2021 7:07 PM CDT Cardiology Daily Progress Reason for follow up: elevated trop, AF 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 Lj aortic valve (on warfarin), hypertension, obstructive sleep apnea compliant with CPAP. CAD, diabetes mellitus, HTN, HLD admitted on 10/22/2021 5:53 PM with weakness Events: Stress test today no evidence of ischemia. Subjective: Patient continues to be weak although no specific complaints of chest pain. She is resting comfortably. Had some mild nausea during the stress test. Assessment: NSTEMI Mild elevation of 61 which then resolved. Likely demand related Has intermittent atypical CP at rest. Echo done last admit showed EF was 40-45%, global hypokinesis. Changed from 08/27 study showing EF 50-55% and no regional WM abn. Last stress in 12/2018 with normal perfusion imaging. Left bundle is not new. Coronary calcification on CT Stress test no evidence of ischemia. ?? Mechanical AVR Continue warfarin, INR goal is 2.5-3.5 INR today is 3.5- pharmacy dosing ?? MR, moderate Acute combined CHF. CT chest with no sig effusions or PVC. Oral lasix dosing. Obtain chest x-ray and proBNP tomorrow. Patient does not have significant edema. A. fib Vent rate controlled on BB dosing. Warfarin per pharm Dr. Paredes had previously stopped low dose amiodarone Reviewed tele, no VT seen. Likely a fib with RVR Anemia Low, stable. Per others. 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 No VT seen on tele. Review of Systems Constitutional: Negative for malaise/fatigue. Respiratory: Negative for cough and shortness of breath. Cardiovascular: Negative for chest pain, palpitations and leg swelling. Gastrointestinal: Negative for abdominal pain and nausea. Musculoskeletal: Negative for myalgias. Neurological: Negative for dizziness. Objective: Scheduled Medications: ??? ceFOXItin 1 g Intravenous Q6H ??? furosemide 20 mg Oral Daily ??? gabapentin 300 mg Oral BID ??? lidocaine 1 patch Transdermal Q24H ??? methIMAzole 5 mg Oral Daily ??? metoprolol tartrate 12.5 mg Oral BID ??? morphine 1 mg Intravenous Once ??? pantoprazole EC 20 mg Oral Daily ??? senna-docusate 1 tablet Oral Nightly at bedtime ??? venlafaxine XR 150 mg Oral Daily with breakfast ??? warfarin (COUMADIN) pharmacy to dose Oral See Admin Instructions acetaminophen, albuterol sulfate HFA, ALPRAZolam, calcium carbonate, dextrose 10 % bolus, glucagon,glucose, HYDROcodone-acetaminophen, vpoxvtydi-yqpltrgq-zklzejiopve, naLOXone, nitroglycerin, ondansetron, polyethylene glycol Vitals: Filed Vitals: 10/31/21 0500 10/31/21 0725 10/31/21 1225 10/31/21 1534 BP: 105/54 98/52 (!) 143/94 120/59 Pulse: 101 100 104 95 Resp: Temp: 97.9 ??F (36.6 ??C) 97.7 ??F (36.5 ??C) 97.9 ??F (36.6 ??C) 97.7 ??F (36.5 ??C) TempSrc: Oral Oral Oral Oral SpO2: 100% 100% 100% 100% Weight: 88.8 kg (195 lb 12.3 oz) Height: I/O: No intake or output data in the 24 hours ending 10/31/21 1907 Last 3 Recorded Weights 10/26/21 0445 10/29/21 0215 10/31/21 0500 Weight: 85.7 kg (188 lb 15 oz) 87.1 kg (192 lb) 88.8 kg (195 lb 12.3 oz) Physical Exam: Physical Exam Vitals reviewed. Constitutional: General: She is not in acute distress. Appearance: She is well-developed. HENT: Head: Normocephalic and atraumatic. Nose: No mucosal edema. Neck: Vascular: No JVD. Cardiovascular: Rate and Rhythm: Normal rate. Rhythm irregular. No extrasystoles are present. Heart sounds: S1 normal and S2 normal. Murmur heard. Pulmonary: Effort: Pulmonary effort is normal. No respiratory distress. Breath sounds: Normal breath sounds. No rales. Abdominal: General: Bowel sounds are normal. Palpations: Abdomen is soft. Tenderness: There is no abdominal tenderness. Musculoskeletal: General: Swelling present. Cervical back: Neck supple. Skin: General: Skin is warm and dry. Coloration: Skin is pale. Neurological: Mental Status: She is alert and oriented to person, place, and time. Psychiatric: Behavior: Behavior normal. Thought Content: Thought content normal. Lab/Radiology/Diagnostic Review: Recent Labs Lab 10/29/21 0704 10/30/21 0659 10/30/21 1155 10/31/21 0714 WBC 4.7 4.4* -- 5.3 RBC 2.63* 2.44* -- 2.45* HGB 8.2* 7.5* -- 7.5* HCT 28.3* 25.8* -- 26.0* NA 144 142 -- 143 K 5.2* 5.0 -- 4.9 CL 115* 115* -- 115* CO2 25.8 25.0 -- 25.9 AGAP 3.2* 2.0* -- 2.1* BUN 17 16 -- 15 CR 0.93 1.03* -- 0.99 BUNCREATININ 18.4 15.5 -- 15.1 GLU 95 81 -- 83 CA 10.1 9.8 -- 9.9 TP 5.8* 5.4* -- 5.3* ALB 2.5* 2.3* -- 2.4* TBIL 0.4 0.4 -- 0.3 ALKP 86 82 -- 81 AST 25 25 -- 21 ALT 25 25 -- 23 TSH -- -- <0.005* -- Recent Labs Lab 10/30/21 1155 TROP 18 Recent Labs Lab 10/29/21 0704 10/30/21 0659 10/31/21 0714 INR 3.3 3.5 3.1 No results for input(s): CHOL, TRI, HDL, LDL in the last 168 hours. Tele: AF with stable vent rates I spent 30 minutes today reviewing the patient's medical record, obtaining history, performing an exam, ordering medications, tests, and/or procedures, documenting in the medical record, referring and/or communicating with other health care providers, counseling, and educating the patient/family/caregiver, reviewing and communicating test results, and coordination of care. TERE CEDILLO MD * Teresita PEDRO PABLO Rasmussen - 10/31/2021 3:37 PM CDT 10/31/21 1513 Therapy Visit OT Evaluation Completed on 10/28/21 Reason for admission OLIVE Comorbidities Relevant to OT PNA, AF, CAD, HTN, DM, HLD, GERD, hypothyroidism Ordering Provider Ismael Verified Two Patient Identifiers Yes Patient consents to therapy Yes Acute Inpatient OT Time Calculation OT Start Time 1513 OT Stop Time 1536 OT Time Calculation (min) 23 min Precautions General Precautions Bed Alarm;Chair Alarm;Fall Risk;Supplemental oxygen PPE Used Face mask;Gloves Instructed on Precautions Yes;Needs reinforcement and education Subjective Subjective [id number]; Recieved approval for treatment from RN. Pt agreeable to treatment Pain Pain Patient does not offer or c/o pain Activity Tolerance Endurance Tolerates 20 - 30 min activity with rests Endurance Quality Fair Limiting Factors to Endurance Acute deconditioning;Fatigue Activity Tolerance Comments Pt rushes during tasks and then becomes SOB. Directed in proper breathing during activity and after activity for recovery Cognition Overall Cognitive Status Impaired Arousal/Alertness Appropriate responses to stimuli Attention Span Appears intact Orientation Level Oriented X4 Following Commands Follows one step commands without difficulty Safety Judgment Decreased awareness of need for safety Awareness of Errors Decreased awareness of errors Deficits Decreased awareness of deficits Problem Solving Assistance required to implement solutions Comments Pt requires cues and assistance to manage O2 tubing during functional mobility and refusedto use FWW during mobility but would occastionally reach out for wall for support balance Motor Planning Cues to use objects appropriately ADL LE Dressing Assistance Minimal LE Dressing Deficit Setup;Steadying;Requires assistive device for steadying;Verbal cueing;Supervision/safety;Increased time to complete;Don/doff R sock;Don/doff L sock;Pull up over hips LE Dressing Comment Becomes SOB to d/d socks with supervision sitting EOB. Simulation of clothing over hips with need for cga/kody. Toileting Assistance Stand by;Minimal Toileting Deficit Setup;Steadying;Verbal cueing;Supervision/safety;Increased time to complete;Clothing management up;Clothing management down;Grab bar use Toileting Comment Pt requires use of grab bar during transfers. She would likely need assistance for management of balance/clothing management as seen from balance during toileting task with gown Bed Mobility Supine to Sit Modified independence Sit to Supine Modified independence Other (Comment) use of bed rails and hob elevated Functional Transfers Sit to Stand Min assist;SBA/supervision Toilet Transfers Grab bars;Min assist Other (Comment) Pt refused to use device for mobility and needs assistance for safety and management of O2. CGA/min A occasionally during mobility due to pt not wanting to use device. Pt may not needas much assist if she uses walker Balance Sitting - Static Independent Sitting - Dynamic Independent Standing - Static SBA Standing - Dynamic Min Assist Patient/Family Training Self Cares x Transfer Training x DME Education x Precautions x Other (Comment) Pt reports she is going to inpatient rehab and is questioning what therapy will be like and how often she will have it. Pt educated that therapy will be intensive but will help her get home safety and quicker. OT Assessment OT Assessment Pt has improved with self care and functional mobility to be able to progress well atnext stage of care. Recommendation OT Recommendation Swing bed unit OT Equipment Recommended To Be Determined Plan OT Treatment/Intervention Self-care training;Therapeutic activities;Cognitive skills development;Functional activity;Safety Progress Progressing toward goals OT Frequency 3 times/week OT plan for next session ADLs If this is the last treatment note, it will serve as the discharge summary Yes End of Session End of Session Safety Bed alarm set/activated;Call light within reach;Nursing aware of session Interdisciplinary Collaboration RN Cosigned by ADARSH Calvo at 10/31/2021 4:07 PM CDT * Lola Richards, PharmD - 10/31/2021 2:28 PM CDT Warfarin Pharmacy to Dose Day #8 Ordering Provider: Dr. Bell Indication: Afib, Mechanical AVR Goal INR: 2.5-3.5 Home Dose: 5 mg daily Date Dose INR H/H/PLT 10/22 held 3.7 9.2/31.1/178 / held 3.7 8.1/27.3/155 8/18 4 mg 3.1 8.1/26.9/152 8/19 5 mg 2.6 7.9/26.4/151 8/20 4 mg 3.2 7.7/25.8/147 10/27 held 4.3 8.1/27.3/166 8/22 4 mg 3.4 7.6/26.1/162 8/23 3 mg 3.3 8.2/28.3/142 8/24 1 mg 3.5 7.5/25.8/171 8/25 3.1 7.5/26.0/174 Diet: Cardiac, low cholesterol (100% intake charted on 10/30) Interacting Medications: - Cefoxitin (started 10/27) - Azithromycin (10/24-10/26) - Cefdinir (home med, stopped 10/26) - Methimazole (home med) A/P: Pt on home warfarin of 5 mg daily for Afib and mechanical AVR and is admitted with hypotension. 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 The INR has decreased to 3.1 this morning after decreased dose of warfarin yesterday, level is still within goal. Given decline in INR overnight and average warfarin dose, will increase dose to 3 mg tonight. The patient remains on Cefoxitin. Will continue to monitor daily INR's. * Oneil Michelle RN - 10/31/2021 1:25 PM CDT Spoke with patient at bedside regarding discharge plan. Patient now agreeable for referral to be sent to [facility] at this time. * Betty Acosta PTA - 10/31/2021 12:54 PM CDT 10/31/21 1151 Therapy Visit Ordering Provider Ismael Sanchez Rm 443: Pt supine in bed with family present. Pt declines therapy, reporting just getting back into room from stress test. Will check back at later time/date. Reason for admission OLIVE Relevant Comorbidities/ Personal Factors to PT 10/15/21 PNA and disch'd home 10/21/21 and returned dueto weakness, afib, aflutter, CAD, HTN, DM, HLD, GERD, HYPOTHYROIDISM * Ashu Deng MD - 10/31/2021 10:19 AM CDT Hospitalist Daily Progress Note Subjective Pt reports chest pain resolved Pt denies abdominal pain, denies N/V Pt reports LE weakness since recent hospital stay Reports shortness of breath improving Denies confusion, palpitations, or dizziness Objective Filed Vitals: 10/31/21 0500 10/31/21 0725 10/31/21 1225 10/31/21 1534 BP: 105/54 98/52 (!) 143/94 120/59 Pulse: 101 100 104 95 Resp: Temp: 97.9 ??F (36.6 ??C) 97.7 ??F (36.5 ??C) 97.9 ??F (36.6 ??C) 97.7 ??F (36.5 ??C) TempSrc: Oral Oral Oral Oral SpO2: 100% 100% 100% 100% Weight: 88.8 kg (195 lb 12.3 oz) Height: Intake/Output 24H Total: No intake or output data in the 24 hours ending 10/31/21 1820 Physical Exam: -GENERAL: No acute distress, Well nourished, on NC -HEAD: Normocephalic, Atraumatic -EYES: Extraocular movements intact, PERRL -LUNGS: Effort normal, diminished b/l bases, coarse breath sounds -CVS: Regular rate and rhythm, S1 and S2 normal -ABDOMEN: Soft, Non tender, Non distended -EXT: No edema, FROM -NEURO: Awake, alert, oriented, No gross neuro deficits -SKIN: No significant rashes, warm Medications ??? ceFOXItin 1 g Intravenous Q6H ??? furosemide 20 mg Oral Daily ??? gabapentin 300 mg Oral BID ??? lidocaine 1 patch Transdermal Q24H ??? methIMAzole 5 mg Oral Daily ??? metoprolol tartrate 12.5 mg Oral BID ??? morphine 1 mg Intravenous Once ??? pantoprazole EC 20 mg Oral Daily ??? senna-docusate 1 tablet Oral Nightly at bedtime ??? venlafaxine XR 150 mg Oral Daily with breakfast ??? warfarin (COUMADIN) pharmacy to dose Oral See Admin Instructions acetaminophen, albuterol sulfate HFA, ALPRAZolam, calcium carbonate, dextrose 10 % bolus, glucagon,glucose, HYDROcodone-acetaminophen, xaazgijwi-ywpfdcjk-kfviveepraj, naLOXone, nitroglycerin, ondansetron, polyethylene glycol Labs, Imaging, Other Studies Recent Labs Lab 10/25/21 0550 10/26/21 0415 10/27/21 0737 10/28/21 0805 10/29/21 0704 10/30/21 0659 10/31/21 0714 WBC 4.6 4.4* 5.0 4.5 4.7 4.4* 5.3 RBC 2.49* 2.47* 2.60* 2.49* 2.63* 2.44* 2.45* HGB 7.9* 7.7* 8.1* 7.6* 8.2* 7.5* 7.5* HCT 26.4* 25.8* 27.3* 26.2* 28.3* 25.8* 26.0* MCV 106.0* 104.5* 105.0* 105.2* 107.6* 105.7* 106.1* MCH 31.7* 31.2* 31.2* 30.5 31.2* 30.7 30.6 MCHC 29.9* 29.8* 29.7* 29.0* 29.0* 29.1* 28.8* PLT 151 147 166 162 142 171 174 RDW 12.3 12.2 12.2 12.1 12.4 12.2 12.3 MPV 13.5* 13.4* 13.3* 13.6* 13.7* 13.1* 13.1* PERNEU 50.5 51.5 57.8 60.1 59.1 55.7 61.6 PERLYM 22.5 21.4 20.0 17.4 17.5 20.2 17.6 PERMON 21.9 20.8 16.6 17.2 17.7 17.7 15.3 LYMC 1.03 0.95* 1.00 0.78* 0.83* 0.89* 0.93* MONOC 1.00* 0.92* 0.83 0.77 0.84 0.78 0.81 EOSC 0.19 0.24 0.22 0.19 0.20 0.21 0.24 BASOC 0.03 0.03 0.05 0.04 0.05 0.05 0.04 DTYPE AUTOMATED DIFFERENTIAL AUTOMATED DIFFERENTIAL AUTOMATED DIFFERENTIAL AUTOMATED DIFFERENTIAL AUTOMATED DIFFERENTIAL AUTOMATED DIFFERENTIAL AUTOMATED DIFFERENTIAL Recent Labs Lab 10/26/21 0415 10/27/21 0737 10/28/21 0805 10/28/21 1922 10/29/21 0704 10/30/21 0659 10/31/21 0714 NA 143 140 143 141 144 142 143 K 5.2* 5.1 5.4* 5.2* 5.2* 5.0 4.9 CL 116* 113* 115* 113* 115* 115* 115* CO2 26.1 24.6 26.1 26.9 25.8 25.0 25.9 AGAP 0.9* 2.4* 1.9* 1.1* 3.2* 2.0* 2.1* BUN 33* 25* 20* 19* 17 16 15 CR 0.95 0.97 1.12* 1.10* 0.93 1.03* 0.99 BUNCREATININ 34.7* 25.8 17.9 17.3 18.4 15.5 15.1 GLU 87 94 90 136* 95 81 83 CA 9.0 9.6 9.6 9.6 10.1 9.8 9.9 TP 5.4* 6.2* 5.4* 5.6* 5.8* 5.4* 5.3* ALB 2.3* 2.5* 2.2* 2.3* 2.5* 2.3* 2.4* TBIL 0.4 0.3 0.3 0.3 0.4 0.4 0.3 ALKP 83 92 83 86 86 82 81 AST 22 28 25 22 25 25 21 ALT 18 25 22 23 25 25 23 Recent Labs Lab 10/30/21 1155 TSH <0.005* Recent Labs Lab 10/29/21 0704 10/30/21 0659 10/31/21 0714 INR 3.3 3.5 3.1 Recent Labs Lab 10/30/21 1155 TROP 18 No results for input(s): LACTICACID, PROCT in the last 168 hours. No results for input(s): PH, PCO2, PO2, E3ZYEKNCONMB, BICARBWB, BASEDEFICIT, BASEEXCESS in the [id number] hours. No results found for this or any previous visit. Imaging ULTRASOUND GENERIC Result Date: 10/03/2021 Ordered by an unspecified provider. IMAGE GENERIC Result Date: 10/02/2021 Ordered by an unspecified provider. CT GENERIC Result Date: 10/03/2021 Ordered by an unspecified provider. CTA CHEST Result Date: 10/15/2021 Examination: CTA CHEST Clinical history: Chest pain Comparison: X-ray, same date DATE/TIME: 10/15/2021 5:13 PM Technique: Multiplanar images of the chest were obtained following the uneventful intravenous administration of 80 mL Isovue 370. 3D Post-processed images were reconstructed on an independent workstation. A dose lowering technique was used for this procedure, which may include, but is not limited to, dose reduction technique, automated exposure control, the use of iterative reconstruction, and ALARA (As Low As Reasonably Achievable) / Image Gently techniques. Findings: There is adequate pulmonary artery opacification. No evidence of pulmonary embolism. Mild to moderate cardiomegaly. Aortic valve prosthesis. Coronary artery calcifications. No pericardial effusion. Thoracic aorta is normal caliber. No mediastinal or hilar lymphadenopathy. No evidence of pneumonia or pulmonary edema. No pleural effusion or pneumothorax. Thoracic compression deformity of T6 with 75% anterior heightloss, appearing chronic. There is minimal retropulsion into the spinal canal with Mild spinal canal narrowing. Sternotomy. Thoracic spondylosis. IMPRESSION: 1. No evidence of pulmonary embolism or other acute findings. 2. Cardiomegaly. 3. Otherchronic or nonurgent findings as described above. Referred By: Interpreted By: Estevan Martines MD, 10/15/2021 5:52 PM CTA HEAD Result Date: 10/23/2021 DATE: 10/22/2021 12:37 PM INDICATION: Right MCA aneurysm. EXAMINATION: CT angiography of the head. TECHNIQUE: CT angiography of the head was performed after uneventful intravenous administration of 80mL IOPAMIDOL 76 % IV SOLN. CT dose reduction techniques were utilized. Axial and 3-D/MIP images were reconstructed and reviewed. Additional 3-D reconstructions and/or postprocessing were performed on a separate dedicated 3-D workstation. A dose lowering technique was used for this procedure, which may include, but is not limited to, dose reduction technique, automated exposure control, the use of iterative reconstruction, and ALARA (As Low As Reasonably Achievable) / Image Gently techniques. COMPARISON: Report from catheter angiography performed 08/10/2020, images not available for direct comparison. FINDINGS: CTA HEAD: There is a 3-4 mm vascular outpouching at the right MCA bifurcation, corresponding to patient's known right MCA aneurysm. Scattered atherosclerotic calcifications seen along t he cavernous and supraclinoid ICA segments, but with less than 50% narrowing suggested. 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 Anterior communicating artery is patent. Otherwise the proximal portions of the anterior and middle cerebral arteries are patent. Atherosclerotic calcifications seen along the vertebral artery V4 segments, without significant narrowing. Basilar artery patent to the terminus. 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 Proximal portions of the posterior cerebral arteries, superior cerebellar arteries, and PICA branches are patent. Right posterior communicating artery not well- visualized. SOFTTISSUES: Small vessel disease and volume loss. Bilateral lens replacements. IMPRESSION: 1. 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 Similar findings described on prior catheter angiography examination 08/10/2020, though no images are available for direct comparison. Ordered By: SULEMAN WEBSTER Interpreted By: Dale Brush MD, 10/23/2021 9:21 AM USV NEGRITA DUPLEX LOW EXT RT Result Date: 10/21/2021 VENOUS DUPLEX IMAGING RIGHT LOWER EXTREMITY VASCULAR LAB Pat.Name: ANA MARIA BOBO Pat.ID: [id number] .Date: 10/15/2021 Exam Time: 4:09:00 PM Study Type:TOYA VS Venous Duplex Leg Rt Age: 3 1945,76Y Sex: FEMALE Sonogrphr: Diana Bronson RVT Pat. Stat.:Outpatient Room: ER History / Clinical:Chest pain. Calf injury, redness, edema. PMH, cad, dm, htn, ckd, hld, copd Procedures: Carrillo scale, Color Doppler imaging, Doppler Spectral Analysis Race: W ++++++++++++++++++++++++++++++++++++ SUMMARY: ++++++++++++++++++++++++++++++++++++ Right leg: There are NO apparent, deep or superficial vein, ACUTE character venous filling defects visualized in the femoral, popliteal, deep calf or proximal saphenous veins. Resting venous flow is normal phasic proximally. No valve reflux with compression maneuvers is detected in the femoral and popliteal veins. Left leg LIMITED: Resting venous flow is normal phasic at the common femoral. No valve reflux with compression maneuvers is detected in thecommon femoral vein. CONCLUSION: Normal study right lower extremity, with no evidence of acute deepor superficial vein thrombosis. There is no significant reflux detected. ++++++++++++++++++++++++++++++++++++ FINDINGS: ++++++++++++++++++++++++++++++++++++ Signed 10/21/2021 12:57 PM José Kaiser M.D. XR CHEST PA+LAT Result Date: 10/19/2021 Examination: Chest x-ray 2 view Exam Date/Time: 10/19/2021 7:00 AM Reason For Exam: chf Comparison: 10/15/2021 chest radiograph Technique: PA and lateral views of the chest were obtained. Findings: Heart size prominent but stable from prior study. Post sternotomy changes again seen including fractured wires. Atherosclerotic aorta. Increased AP dimensional airspace and flattening of diaphragms. Pulmonary vascularity stable from prior study. Interval worsening of opacities at the lung bases more so on the left obscuring diaphragm shadow on frontal view. Upper lungs clear. ======== IMPRESSION: ======== 1. Developing opacity at the anterior left lung base may be infiltrate or atelectasis. Stable interval appearance of the chest otherwise. Referred By: Interpreted By: Quoc Wilkinson MD, 10/19/2021 7:10 AM XR CHEST PORTABLE Result Date: 10/22/2021 Exam: Chest x-ray Comparison 10/19/2021 INDICATION: Recent hospital discharge for pneumonia. Dyspnea. TECHNIQUE: One view FINDINGS: The heart is enlarged. Median sternotomy and valve replacement. Central pulmonary vessels are partially obscured but are within normal limits for size. The right lung is clear. Indistinctness of the left lung base and hemidiaphragm. Uncertain significance with portable technique and superimposed soft tissues. There could be a component of lung opacification or smallpleural effusion present. No substantial change from the prior exam allowing for differences in patient positioning. The remainder of the left lung is clear. IMPRESSION: 1. Enlarged heart. 2. Artifact versus some mild increased density in the left lung base. Referred By: Interpreted By: Neel Basurto MD, 10/22/2021 6:20 PM XR CHEST PORTABLE Result Date: 10/15/2021 Examination: Chest 1 view portable History: Chest pain DATE/TIME: 10/15/2021 1:17 PM Comparison: NoneTechnique: AP upright portable view of the chest was obtained. Findings: Sternotomy. Heart size andmediastinal contours are normal. Borderline pulmonary vasculature. No pulmonary consolidation, pleural effusion or pneumothorax. No acute osseous abnormality. Old left clavicle fracture. Impression: 1. No acute infiltrate. 2. Borderline vascular congestion. Referred By: Interpreted By: Estevan Martines MD, 10/15/2021 1:33 PM USE ECHOCARDIOGRAM W CON Result Date: 10/16/2021 Echocardiography Report Pat.Name: ANA MARIA BOBO Pat.ID: [id number] St.Date: 10/16/2021 Exam Time: 3:01:00 PM Study Type:ECHO WITH CARDIAC DOPPLER COMP Height: 64in Weight: 183.62lb BSA: 1.89 m2 Age: 3 1945,76Y Sex: FEMALE BP: 115/57 HR: 91 bpm Sonogrphr: Becky Martel [facility] Pat. Stat. :Inpatient Room: [facility] Reason for Study: Aortic valve replacement, Congestive heart failure, Dyspnea on exertion, Murmur History / Clinical: Chest pain. Calf injury, redness, edema. PMH, cad, dm, htn, ckd, hld, copd Procedures: 2D, M- mode, Doppler, Color Flow, Definity was used to enhance endocardial definition., The study quality is technically difficult. Race: W ++++++++++++++++++++++++++++++++++++ SUMMARY: ++++++++++++++++++++++++++++++++++++ The left ventricular size is normal. Estimated left ventricular ejection fraction is 40-45%. Moderate concentric left ventricular hypertrophy. Left ventricular diastolic function is abnormal (grade 2 - pseudonormal pattern). ?Moderate global hypokinesis is noted. The right ventricular size is normal. Right ventricular systolic function is moderately depressed. A mechanical valve is in the aortic position with post-deployment peak velocity of 3.53m/sec, mean gradient of 31mmHg and a calculated YADIRA of 1.10cm2. Right ventricular systolic pressure is 40-50 mmHg suggestive of mild to moderate pulmonary hypertension. Mild to moderate tricuspid regurgitation. Moderate mitral regurgitation. ++++++++++++++++++++++++++++++++++++ FINDINGS: ++++++++++++++++++++++++++++++++++++ LV: The left ventricular size is normal. Estimated left ventricular ejection fraction is 40-45%. Moderate concentric left ventricular hypertrophy. Left ventricular diastolic function is abnormal (grade 2 - pseudonormal pattern). WM: Moderate global hypokinesis is noted.RV: The right ventricular size is normal. Right ventricular systolic function is moderately depressed. IVS: No evidence of ventricular septal defect. LA: The left atrial size is mildly enlarged. The left atrial volume is mildly increased (34- 41ml/M2). RA: Right atrial size is mildly enlarged. IAS:Atrial septum appears intact. DENICE: No evidence of pericardial effusion. AO: Normal aortic root. PA: Estimated right atrial pressure of 15 mmHg. SVn: Inferior vena cava is mildly enlarged. Inferior vena cava shows <50% collapse with respiration consistent with elevated right atrial pressure. AV: Mechanical prosthetic aortic valve seen. A trace of denice-prosthetic aortic valve regurgitation. A mechanical valve is in the aortic position with post-deployment peak velocity of 3.53m/sec, mean gradient of 31mmHg and a calculated YADIRA of 1.10cm2. MV: Moderate mitral regurgitation. No evidence of mitral stenosis. PV: No evidence of pulmonic valve stenosis. Mild pulmonic regurgitation. TV: Mild tomoderate tricuspid regurgitation. Right ventricular systolic pressure is 40-50 mmHg suggestive of mild to moderate pulmonary hypertension. No evidence of tricuspid valve stenosis. ++++++++++++++++++++++++++++++++++++ MEASUREMENTS: ++++++++++++++++++++++++++++++++++++ DOPPLER LVOT LVOTpkPG 8 mmHg LVOTmnPG 4 mmHg LVOTpkVel 141 cm/s (70-110)+* LVOT SV 83 ml LVOT TVI 26.3 cm Right Atrium RA Press 15mmHg Ayala's Disk 20 AV Forward Flow AV TVI 51.2 cm AV pkPG 37 mmHg AV pkVel 305 cm/s (100-170)+* Area (TVI) 1.61 cm2 (3-5)* AV mnPG 21 mmHg Area (Randall) 1.45 cm2 (3-5)* AV Regurg Flow AV pkVel 381 cm/s AV P1/2t 290 ms AV pkPG 58 mmHg MV Forward Flow MV DeTm 257 ms MV pkPG 9 mmHg MV mnPG 3 mmHg MV pkE 134 cm/s (60-130)+* PV Forward Flow PV pkVel 96.4 cm/s (60-90)* PV AC 109 ms PV pkPG 4 mmHg TVRegurg Flow TV pkPG 26 mmHg TV pkVel 253 cm/s (30-70)+* Right Ventricle RVsys P 41 mmHg Right Ventricle 5.32 cm/s Lat E' Lat e 7.2 cm/s Lat E/E' Lat E/e 18.6 Med E' Med e 4.94 cm/s Med E/E' Med E/e27.1 Aortic Valve Aortic Valve Ar 0.85 Aortic Valve Ve 0.46 PV Antegrade Flow Acceleration Sl 573 cm/s2 TAPSE Distance 8 mm 2D Left Ventricle LVIDd 4.8 cm (3.6-5.2)+ LV ESV 52.6 ml LVIDs 3.63 cm (2.3-3.9)+ LV ESV 46.2 ml LngAxd 7.03 cm LVESV BP 50.5 ml LngAxd 7.4 cm LV EF 36.1 % LV EDV 82.2 ml LV EF 42.7 % LV EDV 80.4 ml LV EF BP 38.7 % LVEDV BP 82.4 ml LV SV 29.6 ml LngAxs 6.96 cm LV SV 34.4 mlLngAxs 7.36 cm LV SV BP 31.9 ml LVPW LVPWd 1.36 cm Ventricular Septum IVSd 1.32 cm Left Atrium LA VOLBP 72.9 ml Aorta Ao Rtd 2.4 cm LVOT LVOT 2 cm LVOTArea 3.14 cm2 Ratios IVS LA Biplane LAVol I BP 38.6 ml/m2 RA Single Plane Right Atrium MO 13.4 mm Right Atrium Sy 51.1 ml Right Atrium Sy 64.4 mm Right Atrium Sy 27 ml/m2 Right Atrium Sy 20 cm2 Right Ventricle Right Ventricle 27 mm Right Ventricle 3 2.8 mm Major [facility] 77.7 mm Signed 10/16/2021 06:42 PM Tere Cedillo M.D. EKG: Results for orders placed or performed during the hospital encounter of 10/22/21 ECG 12 lead Narrative [facility] [place] [address] [facility] Test Date: 2021-10-22 Pat Name: ANA MARIA BOBO Department: 41 Room: B443 Gender: Female Credit Report Checker: : 1945 Requested By: SANJANA BATES Order Number: [id number] Reading MD: Sanjana Ludwig Measurements Intervals [place] [facility] Rate: 86 P: MS: 0 QRS: -37 QRSD: 160 T: 98 QT: 411 QTc: 494 Interpretive Statements ATRIAL FIBRILLATION LEFT AXIS DEVIATION [QRS AXIS < -30] LEFT BUNDLE BRANCH BLOCK [120+ ms QRS DURATION, 80+ ms Q/S IN V1/V2, 85+ ms R IN I/aVL/V5/V6] Compared to ECG 10/15/2021 17:09:13 Left-axis deviation now present ECG 12 lead Narrative [facility] [address] [facility] Test Date: 2021-10-28 Pat Name: ANA MARIA JERAMIE Department: 40 Room: [id number] Gender: Female Credit Report Checker: : 1945 Requested By: ASHU DENG Order Number: [id number] Reading : Tere Cedillo Measurements Intervals [place] [facility] Rate: 94 P: MS: 0 QRS: -39 QRSD: 159 T: 89 QT: 365 QTc: 458 Interpretive Statements ATRIAL FIBRILLATION LEFT BUNDLE BRANCH BLOCK [120+ ms QRS DURATION, 80+ ms Q/S IN V1/V2, 85+ ms R IN I/aVL/V5/V6] Compared to ECG 10/22/2021 18:11:32 No significant changes ECG [address] [facility] [address] [place] [address] Test Date: 2021-10-30 Pat Name: ANA MARIA BOBO Department: 40 Room: [facility] Gender: Female Credit Report Checker: : 1945 Requested By: ASHU DENG Order Number: [id number] Reading MD: Tere Cedillo Measurements Intervals [place] [facility] Rate: 88 P: MS: 0 QRS: -26 QRSD: 158 T: 116 QT: 380 QTc: 462 Interpretive Statements ATRIAL FIBRILLATION LEFT BUNDLE BRANCH BLOCK [120+ ms QRS DURATION, 80+ ms Q/S IN V1/V2, 85+ ms R IN I/aVL/V5/V6] Compared to ECG 10/28/2021 18:07:07 Left-axis deviation no longer present Assessment & Plan NSVT 10/28 patient had 9 beat run of Vtach, asymptomatic F/u EKG, electrolytes C/w BB telemetry Acute diverticulitis F/u CT abd/pelvis revealed acute diverticulitis Start cefoxitin IV, continue Will consult GI if pain does not improve Cannot start IVF at this time d/t heart failure Hypotension: Suspect over diuresis and poor oral intake following discharge as contributing factors. Patient status post 2 L normal saline given in the emergency room. We will hold on further IV fluid resuscitation at this time. Holding outpatient oral antihypertensive medications and diuretics. F/u BMP Monitor VS and pulse ox Fall precautions 10/25 resume lasix and BB tomorrow AM per cardiology if BP stable 10/26 remains hypotensive today; lasix resumed, then held per cardiology; BB on hold 10/31 improving BP, stable NSTEMI Cardiology consulted Trend trop F/u outpatient with Dr. Paredes for ischemic eval once stable Start ASA 81 mg per cardiology Telemetry 10/25 resume lasix in AM tomorrow with BB per cardiology if BP stable 10/26 lasix resumed, BP will not tolerate resuming BB today ??10/26 c/w lasix PO 10/30 plan for stress test tomorrow Acute on chronic renal Failure: suspect seconday to hypotension possible diuresis and continued administration of nephrotoxic medications and reduced oral intake. Medications reviewed will hold nephrotoxic medications. UA pending. status post 2 L normal saline to achieve and maintain euvolemia. Given history of heart failure monitor volume status closely avoid hypotension. Renally dose medications. Consider nephrology consult if not improved with correction of precipitating factors. F/u BMP -had held diuresis, Monitor Cr , No further IV fluids at this time 10/25 resume lasix in AM tomorrow per cardiology 10/26 will attempt to resume lasix again tomorrow if BP permits; BB remains on hold 10/28 c/w oral diuresis per cardiology 10/31 stress test per cardiology today Chronic heart failure reduced ejection fraction: Patient appears dry to euvolemic on exam currently holding outpatient antihypertensives and diuretic medications and nephrotoxic medications. C/w oral diuresis Continue cardiac medications as indicated. ?? CAP: Patient afebrile no leukocytosis we will continue current dose antibiotics pulmonary toilet pulm consulted F/u sputum culture Antibiotics discontinued per pulmonology ?? Acute hypoxic respiratory failure: Secondary to the above patient continues to be maintained on 2 L nasal cannula 1 L while sleeping patient also found to have respiratory acidosis started BiPAP, now dc'd f/u repeat ABG pulm consulted Improving Weaned to RA per pulm on 10/25 ?? A. fib currently rate controlled stroke risk reduction with Coumadin INR goal 2.5-3.5 for mechanical valve, pharmacy to dose. ?? Hyperlipidemia: Continue statin ?? Hypothyroidism continue methimazole follow-up PCP consider endocrinology referral. ?? GERD: Continue PPI Right MCA aneurysm Noted on CTA Also noted per radiology on prior imaging, though direct comparison not available Neurology consulted F/u MRI per enuro F/u EEG ?? - DVT prophylaxis: Coumadin - Diet/IVF: Cardiac - Code status: Full code - Disposition: Telemetry inpatient, stress test today, now amenable to swing bed placement on discharge once medically clear Plan of care discussed with patient, CM, cardiology, nurse. ASHU DENG MD * Juan Pablo Leon RN - 10/30/2021 11:01 PM CDT Problem: Reduced risk for falls/injury Goal: Reduced Risk for Falls/Injury Outcome: Met This Shift Goal: Reduced Risk of Confusion (Acute vs Chronic) Outcome: Met This Shift Goal: Reduced Risk of Symptomatic Depression Outcome: Met This Shift Goal: Reduced Risk of Altered Elimination Outcome: Met This Shift Goal: Reduced Risk of Dizziness/Vertigo/Balance Outcome: Met This Shift Goal: Reduced Risk of Polypharmacy Outcome: Met This Shift Problem: Pain Goal: Patient's pain/discomfort is manageable Description: Assess and monitor patient's pain using appropriate pain scale. Collaborate with interdisciplinary team and initiate plan and interventions as ordered. Re-assess patient's pain level 30 - 60 minutes after pain management intervention. Outcome: Met This Shift * Oneil Michelle RN - 10/30/2021 2:25 PM CDT Per IDRs, no planned discharge this date. Patient to have Stress test . Probable dc in 1-2 days. RNCM will continue to follow for discharge needs. * Betty Acosta PTA - 10/30/2021 1:41 PM CDT 10/30/21 1309 Therapy Visit Ordering Provider Ismael Sanchez Rm [id number]: RN ok to see. Pt supine in bed and agreeable to therapy. Reason for admission OLIVE Relevant Comorbidities/ Personal Factors to PT 10/15/21 PNA and disch'd home 10/21/21 and returned dueto weakness, afib, aflutter, CAD, HTN, DM, HLD, GERD, HYPOTHYROIDISM Verified Two Patient Identifiers Yes Patient consents to therapy Yes Acute Inpatient PT Time Calculation PT Start Time 1309 PT Stop Time 1323 PT Time Calculation (min) 14 min Precautions General Precautions Bed Alarm;Chair Alarm;Fall Risk;Supplemental oxygen PPE Used Face mask;Gloves Instructed on Precautions Yes;Needs reinforcement and education Pain Pain Yes Pain Score Did not rate Location B LE during ambulation Interventions Re-positioning;Re-direction Activity Tolerance Endurance Tolerates 10 - 20 min activity with rests Endurance Quality Fair Limiting Factors to Endurance Acute deconditioning;Fatigue Activity Tolerance Comments Pt required toileting prior to ambulation. Pt ambulates short distanceswith no AD, but reaches out for surfaces. Pt had an episode of dizziness and had LOB, recovered with min/mod assist. BSC brought to pt for seated rest break. Pt reports dizziness subsided with time. No further epsiodes noted. RN made aware of session. Cognition Orientation Level Oriented X4 Following Commands Follows one step commands consistently Safety Judgment Decreased awareness of need for safety Bed Mobility Supine to Sit Modified independence Other (Comment) Use of bed rails and HOB elevated TRANSFERS Sit to Stand Modified independence;SBA/supervision Gait Gait Assistance Min assist Assistive Device 2 Wheeled walker Distance Ambulated (ft) (10'x 1, 90' x 1) Other (Comment) Mild foward flex posture, moderate royer, dec stride. Limited gait tolerance, as pt fatigues quickly and c/o increase B LE pain. No LOB noted or c/o SOB. Balance Sitting - Static Independent Sitting - Dynamic Independent Standing - Static SBA;Min Assist;Support of both upper extremities Standing - Dynamic Min Assist Patient/Family Training Bed Mobility x Transfer Training x Gait Training x Precautions x Recommendation PT Recommendation Swing bed unit (or home with assistance and C pending progress) PT Equipment Recommended Currently has DME in Place Plan PT Treatments/Interventions Gait Training;Therapeutic Exercises;Therapeutic Activities Progress Progressing toward goals PT Frequency Daily;5 times/week PT plan for next session cont transfers, gait and balance If this is the last treatment note,it will serve as the discharge summary Yes End of Session End of Session Safety Chair alarm set/activated;Call light within reach;Nursing aware of session * Lola Richards PharmD - 10/30/2021 1:13 PM CDT Warfarin Pharmacy to Dose Day #7 Ordering Provider: Dr. Bell Indication: Afib, Mechanical AVR Goal INR: 2.5-3.5 Home Dose: 5 mg daily Date Dose INR H/H/PLT 10/22 held 3.7 9.2/31.1/178 10/23 held 3.7 8.1/27.3/155 10/24 4 mg 3.1 8.1/26.9/152 8 5 mg 2.6 7.9/26.4/151 10/26 4 mg 3.2 7.7/25.8/147 10/27 held 4.3 8.1/27.3/166 10/28 4 mg 3.4 7.6/26.1/162 10/29 3 mg 3.3 8.2/28.3/142 10/30 3.5 7.5/25.8/171 Diet: Cardiac, low cholesterol (25% intake charted on 10/26) Interacting Medications: - Cefoxitin (started 10/27) - Azithromycin (10/24-10/26) - Cefdinir (home med, stopped 10/26) - Methimazole (home med) A/P: Pt on home warfarin of 5 mg daily for Afib and mechanical AVR and is admitted with hypotension. 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 The INR has increased to 3.5 this morning, level is within goal. Will administer a 1 mg warfarin dose for tonight based on average dosing of 2.5 mg daily. The patient remains on Cefoxitin. Will continue to monitor daily INR's. * Betty Acosta PTA - 10/30/2021 12:35 PM CDT 10/30/21 1138 Therapy Visit Ordering Provider Ismael Subjective RM [id number]: Attempted to see pt, pt reports chest pain. Per RN, pt to recieve pain meds and attempt therapy at later time. Will check back at later time/date. Reason for admission OLIVE Relevant Comorbidities/ Personal Factors to PT 10/15/21 PNA and disch'd home 10/21/21 and returned dueto weakness, afib, aflutter, CAD, HTN, DM, HLD, GERD, HYPOTHYROIDISM * Ashu Deng MD - 10/30/2021 11:17 AM CDT Hospitalist Daily Progress Note Subjective Pt reports chest pain today, states it is different that the abdominal pain she had days prior Pt denies abdominal pain, denies N/V Pt reports LE weakness since recent hospital stay Reports shortness of breath improving Denies confusion, palpitations, or dizziness Objective Filed Vitals: 10/30/21 2339 10/30/21 2344 10/31/21 0000 10/31/21 0500 BP: 136/87 129/76 129/66 105/54 Pulse: 83 95 112 101 Resp: 20 Temp: 98.6 ??F (37 ??C) 97.9 ??F (36.6 ??C) TempSrc: Oral SpO2: 100% 100% Weight: 88.8 kg (195 lb 12.3 oz) Height: Intake/Output 24H Total: Intake/Output Summary (Last 24 hours) at 10/31/2021 0617 Last data filed at 10/30/2021 1700 Gross per 24 hour Intake 960 ml Output -- Net 960 ml Physical Exam: -GENERAL: No acute distress, Well nourished, on NC -HEAD: Normocephalic, Atraumatic -EYES: Extraocular movements intact, PERRL -LUNGS: Effort normal, diminished b/l bases, coarse breath sounds -CVS: Regular rate and rhythm, S1 and S2 normal -ABDOMEN: Soft, Non tender, Non distended -EXT: No edema, FROM -NEURO: Awake, alert, oriented, No gross neuro deficits -SKIN: No significant rashes, warm Medications ??? ceFOXItin 1 g Intravenous Q6H ??? furosemide 20 mg Oral Daily ??? gabapentin 300 mg Oral BID ??? lidocaine 1 patch Transdermal Q24H ??? methIMAzole 5 mg Oral Daily ??? metoprolol tartrate 12.5 mg Oral BID ??? morphine 1 mg Intravenous Once ??? pantoprazole EC 20 mg Oral Daily ??? senna-docusate 1 tablet Oral Nightly at bedtime ??? venlafaxine XR 150 mg Oral Daily with breakfast ??? warfarin (COUMADIN) pharmacy to dose Oral See Admin Instructions ??? warfarin 1 mg Oral Daily (warfarin) acetaminophen, albuterol sulfate HFA, ALPRAZolam, calcium carbonate, dextrose 10 % bolus, glucagon,glucose, HYDROcodone-acetaminophen, iibioaxwi-jdsajlcg-xmbjbfjulxk, naLOXone, nitroglycerin, ondansetron, polyethylene glycol Labs, Imaging, Other Studies Recent Labs Lab 10/25/21 0550 10/26/21 0415 10/27/21 0737 10/28/21 0805 10/29/21 0704 10/30/21 0659 WBC 4.6 4.4* 5.0 4.5 4.7 4.4* RBC 2.49* 2.47* 2.60* 2.49* 2.63* 2.44* HGB 7.9* 7.7* 8.1* 7.6* 8.2* 7.5* HCT 26.4* 25.8* 27.3* 26.2* 28.3* 25.8* MCV 106.0* 104.5* 105.0* 105.2* 107.6* 105.7* MCH 31.7* 31.2* 31.2* 30.5 31.2* 30.7 MCHC 29.9* 29.8* 29.7* 29.0* 29.0* 29.1* PLT 151 147 166 162 142 171 RDW 12.3 12.2 12.2 12.1 12.4 12.2 MPV 13.5* 13.4* 13.3* 13.6* 13.7* 13.1* PERNEU 50.5 51.5 57.8 60.1 59.1 55.7 PERLYM 22.5 21.4 20.0 17.4 17.5 20.2 PERMON 21.9 20.8 16.6 17.2 17.7 17.7 LYMC 1.03 0.95* 1.00 0.78* 0.83* 0.89* MONOC 1.00* 0.92* 0.83 0.77 0.84 0.78 EOSC 0.19 0.24 0.22 0.19 0.20 0.21 BASOC 0.03 0.03 0.05 0.04 0.05 0.05 DTYPE AUTOMATED DIFFERENTIAL AUTOMATED DIFFERENTIAL AUTOMATED DIFFERENTIAL AUTOMATED DIFFERENTIAL AUTOMATED DIFFERENTIAL AUTOMATED DIFFERENTIAL Recent Labs Lab 10/25/21 0550 10/26/21 0415 10/27/21 0737 10/28/21 0805 10/28/21 1922 10/29/21 0704 10/30/21 0659 NA 139 143 140 143 141 144 142 K 5.0 5.2* 5.1 5.4* 5.2* 5.2* 5.0 CL 112* 116* 113* 115* 113* 115* 115* CO2 25.8 26.1 24.6 26.1 26.9 25.8 25.0 AGAP 1.2* 0.9* 2.4* 1.9* 1.1* 3.2* 2.0* BUN 48* 33* 25* 20* 19* 17 16 CR 1.26* 0.95 0.97 1.12* 1.10* 0.93 1.03* BUNCREATININ 38.1* 34.7* 25.8 17.9 17.3 18.4 15.5 GLU 73 87 94 90 136* 95 81 CA 8.7 9.0 9.6 9.6 9.6 10.1 9.8 TP 5.4* 5.4* 6.2* 5.4* 5.6* 5.8* 5.4* ALB 2.4* 2.3* 2.5* 2.2* 2.3* 2.5* 2.3* TBIL 0.5 0.4 0.3 0.3 0.3 0.4 0.4 ALKP 81 83 92 83 86 86 82 AST 17 22 28 25 22 25 25 ALT 17 18 25 22 23 25 25 Recent Labs Lab 10/30/21 1155 TSH <0.005* Recent Labs Lab 10/28/21 0805 10/29/21 0704 10/30/21 0659 INR 3.4 3.3 3.5 Recent Labs Lab 10/24/21 1353 10/24/21 1646 10/30/21 1155 TROP 35 32 18 No results for input(s): LACTICACID, PROCT in the last 168 hours. No results for input(s): PH, PCO2, PO2, A1OCXBDLAYRE, BICARBWB, BASEDEFICIT, BASEEXCESS in the [id number] hours. No results found for this or any previous visit. Imaging ULTRASOUND GENERIC Result Date: 10/03/2021 Ordered by an unspecified provider. IMAGE GENERIC Result Date: 10/02/2021 Ordered by an unspecified provider. CT GENERIC Result Date: 10/03/2021 Ordered by an unspecified provider. CTA CHEST Result Date: 10/15/2021 Examination: CTA CHEST Clinical history: Chest pain Comparison: X-ray, same date DATE/TIME: 10/15/2021 5:13 PM Technique: Multiplanar images of the chest were obtained following the uneventful intravenous administration of 80 mL Isovue 370. 3D Post-processed images were reconstructed on an independent workstation. A dose lowering technique was used for this procedure, which may include, but is not limited to, dose reduction technique, automated exposure control, the use of iterative reconstruction, and ALARA (As Low As Reasonably Achievable) / Image Gently techniques. Findings: There is adequate pulmonary artery opacification. No evidence of pulmonary embolism. Mild to moderate cardiomegaly. Aortic valve prosthesis. Coronary artery calcifications. No pericardial effusion. Thoracic aorta is normal caliber. No mediastinal or hilar lymphadenopathy. No evidence of pneumonia or pulmonary edema. No pleural effusion or pneumothorax. Thoracic compression deformity of T6 with 75% anterior heightloss, appearing chronic. There is minimal retropulsion into the spinal canal with Mild spinal canal narrowing. Sternotomy. Thoracic spondylosis. IMPRESSION: 1. No evidence of pulmonary embolism or other acute findings. 2. Cardiomegaly. 3. Otherchronic or nonurgent findings as described above. Referred By: Interpreted By: Estevan Martines MD, 10/15/2021 5:52 PM CTA HEAD Result Date: 10/23/2021 DATE: 10/22/2021 12:37 PM INDICATION: Right MCA aneurysm. EXAMINATION: CT angiography of the head. TECHNIQUE: CT angiography of the head was performed after uneventful intravenous administration of 80mL IOPAMIDOL 76 % IV SOLN. CT dose reduction techniques were utilized. Axial and 3-D/MIP images were reconstructed and reviewed. Additional 3-D reconstructions and/or postprocessing were performed on a separate dedicated 3-D workstation. A dose lowering technique was used for this procedure, which may include, but is not limited to, dose reduction technique, automated exposure control, the use of iterative reconstruction, and ALARA (As Low As Reasonably Achievable) / Image Gently techniques. COMPARISON: Report from catheter angiography performed 08/10/2020, images not available for direct comparison. FINDINGS: CTA HEAD: There is a 3-4 mm vascular outpouching at the right MCA bifurcation, corresponding to patient's known right MCA aneurysm. Scattered atherosclerotic calcifications seen along t he cavernous and supraclinoid ICA segments, but with less than 50% narrowing suggested. 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 Anterior communicating artery is patent. Otherwise the proximal portions of the anterior and middle cerebral arteries are patent. Atherosclerotic calcifications seen along the vertebral artery V4 segments, without significant narrowing. Basilar artery patent to the terminus. 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 Proximal portions of the posterior cerebral arteries, superior cerebellar arteries, and PICA branches are patent. Right posterior communicating artery not well- visualized. SOFTTISSUES: Small vessel disease and volume loss. Bilateral lens replacements. IMPRESSION: 1. 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 Similar findings described on prior catheter angiography examination 08/10/2020, though no images are available for direct comparison. Ordered By: SULEMAN WEBSTER Interpreted By: Dale Brush MD, 10/23/2021 9:21 AM USV NEGRITA DUPLEX LOW EXT RT Result Date: 10/21/2021 VENOUS DUPLEX IMAGING RIGHT LOWER EXTREMITY VASCULAR LAB Pat.Name: ANA MARIA BOBO Pat.ID: [id number] .Date: 10/15/2021 Exam Time: 4:09:00 PM Study Type:TOYA VS Venous Duplex Leg Rt Age: 3 1945,76Y Sex: FEMALE Sonogrphr: Diana Bronson RVT Pat. Stat.:Outpatient Room: ER History / Clinical:Chest pain. Calf injury, redness, edema. PMH, cad, dm, htn, ckd, hld, copd Procedures: Carrillo scale, Color Doppler imaging, Doppler Spectral Analysis Race: W ++++++++++++++++++++++++++++++++++++ SUMMARY: ++++++++++++++++++++++++++++++++++++ Right leg: There are NO apparent, deep or superficial vein, ACUTE character venous filling defects visualized in the femoral, popliteal, deep calf or proximal saphenous veins. Resting venous flow is normal phasic proximally. No valve reflux with compression maneuvers is detected in the femoral and popliteal veins. Left leg LIMITED: Resting venous flow isnormal phasic at the common femoral. No valve reflux with compression maneuvers is detected in the common femoral vein. CONCLUSION: Normal study right lower extremity, with no evidence of acute deep or superficial vein thrombosis. There is no significant reflux detected. ++++++++++++++++++++++++++++++++++++ FINDINGS: ++++++++++++++++++++++++++++++++++++ Signed 10/21/2021 12:57 PM José Kaiser M.D. XR CHEST PA+LAT Result Date: 10/19/2021 Examination: Chest x-ray 2 view Exam Date/Time: 10/19/2021 7:00 AM Reason For Exam: chf Comparison: 10/15/2021 chest radiograph Technique: PA and lateral views of the chest were obtained. Findings: Heart size prominent but stable from prior study. Post sternotomy changes again seen including fractured wires. Atherosclerotic aorta. Increased AP dimensional airspace and flattening of diaphragms. Pulmonary vascularity stable from prior study. Interval worsening of opacities at the lung bases more so on the left obscuring diaphragm shadow on frontal view. Upper lungs clear. ======== IMPRESSION: ======== 1. Developing opacity at the anterior left lung base may be infiltrate or atelectasis. Stable interval appearance of the chest otherwise. Referred By: Interpreted By: Quoc Wilkinson MD, 10/19/2021 7:10 AM XR CHEST PORTABLE Result Date: 10/22/2021 Exam: Chest x-ray Comparison 10/19/2021 INDICATION: Recent hospital discharge for pneumonia. Dyspnea. TECHNIQUE: One view FINDINGS: The heart is enlarged. Median sternotomy and valve replacement. Central pulmonary vessels are partially obscured but are within normal limits for size. The right lung is clear. Indistinctness of the left lung base and hemidiaphragm. Uncertain significance with portable technique and superimposed soft tissues. There could be a component of lung opacification or small pleural effusion present. No substantial change from the prior exam allowing for differences in patient positioning. The remainder of the left lung is clear. IMPRESSION: 1. Enlarged heart. 2. Artifact versus some mild increased density in the left lung base. Referred By: Interpreted By: Neel Basurto MD, 10/22/2021 6:20 PM XR CHEST PORTABLE Result Date: 10/15/2021 Examination: Chest 1 view portable History: Chest pain DATE/TIME: 10/15/2021 1:17 PM Comparison: NoneTechnique: AP upright portable view of the chest was obtained. Findings: Sternotomy. Heart size andmediastinal contours are normal. Borderline pulmonary vasculature. No pulmonary consolidation, pleural effusion or pneumothorax. No acute osseous abnormality. Old left clavicle fracture. Impression: 1. No acute infiltrate. 2. Borderline vascular congestion. Referred By: Interpreted By: Estevan Martines MD, 10/15/2021 1:33 PM USE ECHOCARDIOGRAM W CON Result Date: 10/16/2021 Echocardiography Report Pat.Name: ANA MARIA BOBO Pat.ID: [id number] St.Date: 10/16/2021 Exam Time: 3:01:00 PM Study Type:ECHO WITH CARDIAC DOPPLER COMP Height: 64in Weight: 183.62lb BSA: 1.89 m2 Age: 3 1945,76Y Sex: FEMALE BP: 115/57 HR: 91 bpm Sonogrphr: Becky Martel [facility] Pat. Stat .:Inpatient Room: CDU04 Reason for Study: Aortic valve replacement, Congestive heart failure, Dyspnea on exertion, Murmur History / Clinical: Chest pain. Calf injury, redness, edema. PMH, cad, dm, htn, ckd, hld, copd Procedures: 2D, M- mode, Doppler, Color Flow, Definity was used to enhance endocardial definition., The study quality is technically difficult. Race: W ++++++++++++++++++++++++++++++++++++ SUMMARY: ++++++++++++++++++++++++++++++++++++ The left ventricular size is normal. Estimated left ventricular ejection fraction is 40-45%. Moderate concentric left ventricular hypertrophy. Left ventricular diastolic function is abnormal (grade 2 - pseudonormal pattern). ?Moderate global hypokinesis is noted. The right ventricular size is normal. Right ventricular systolic function is moderately depressed. A mechanical valve is in the aortic position with post-deployment peak velocity of3.53m/sec, mean gradient of 31mmHg and a calculated YADIRA of 1.10cm2. Right ventricular systolic pressure is 40-50 mmHg suggestive of mild to moderate pulmonary hypertension. Mild to moderate tricuspidregurgitation. Moderate mitral regurgitation. ++++++++++++++++++++++++++++++++++++ FINDINGS: ++++++++++++++++++++++++++++++++++++ LV: The left ventricular size is normal. Estimated left ventricular ejection fraction is 40-45%. Moderate concentric left ventricular hypertrophy. Left ventricular diastolic function is abnormal (grade 2 - pseudonormal pattern). WM: Moderate global hypokinesis is noted. RV: The right ventricular size is normal. Right ventricular systolic function is moderately depressed. IVS: No evidence of ventricular septal defect. LA: The left atrial size is mildly enlarged. Theleft atrial volume is mildly increased (34- 41ml/M2). RA: Right atrial size is mildly enlarged. IAS: Atrial septum appears intact. DENICE: No evidence of pericardial effusion. AO: Normal aortic root. PA: Estimated right atrial pressure of 15 mmHg. SVn: Inferior vena cava is mildly enlarged. Inferior vena cava shows <50% collapse with respiration consistent with elevated right atrial pressure. AV: Mechanical prosthetic aortic valve seen. A trace of denice-prosthetic aortic valve regurgitation. A mechanical valve is in the aortic position with post-deployment peak velocity of 3.53m/sec, mean gradient of 31mmHg and a calculated YADIRA of 1.10cm2. MV: Moderate mitral regurgitation. No evidence of mitral stenosis. PV: No evidence of pulmonic valve stenosis. Mild pulmonic regurgitation. TV: Mild tomoderate tricuspid regurgitation. Right ventricular systolic pressure is 40-50 mmHg suggestive of mild to moderate pulmonary hypertension. No evidence of tricuspid valve stenosis. ++++++++++++++++++++++++++++++++++++ MEASUREMENTS: ++++++++++++++++++++++++++++++++++++ DOPPLER LVOT LVOTpkPG 8 mmHg LVOTmnPG 4 mmHg LVOTpkVel 141 cm/s (70-110)+* LVOT SV 83 ml LVOT TVI 26.3 cm Right Atrium RA Press 15mmHg Ayala's Disk 20 AV Forward Flow AV TVI 51.2 cm AV pkPG 37 mmHg AV pkVel 305 cm/s (100-170)+*Area (TVI) 1.61 cm2 (3-5)* AV mnPG 21 mmHg Area (Randall) 1.45 cm2 (3-5)* AV Regurg Flow AV pkVel 381 cm/s AV P1/2t 290 ms AV pkPG 58 mmHg MV Forward Flow MV DeTm 257 ms MV pkPG 9 mmHg MV mnPG 3 mmHg MV pkE 134 cm/s (60-130)+* PV Forward Flow PV pkVel 96.4 cm/s (60-90)* PV AC 109 ms PV pkPG 4 mmHg TV Regurg Flow TV pkPG 26 mmHg TV pkVel 253 cm/s (30-70)+* Right Ventricle RVsys P 41 mmHg Right Ventricle 5.32 cm/s Lat E' Lat e 7.2 cm/s Lat E/E' Lat E/e 18.6 Med E' Med e 4.94 cm/s Med E/E' Med E/e 27.1 Aortic Valve Aortic Valve Ar 0.85 Aortic Valve Ve 0.46 PV Antegrade Flow Acceleration Sl 573 cm/s2 TAPSE Distance 8 mm 2D Left Ventricle LVIDd 4.8 cm (3.6-5.2)+ LV ESV 52.6 ml LVIDs 3.63 cm (2.3-3.9)+ LV ESV 46.2 ml LngAxd 7.03 cm LVESV BP 50.5 ml LngAxd 7.4 cm LV EF 36.1 % LV EDV 82.2 ml LV EF 42.7 % LV EDV 80.4 ml LV EF BP 38.7 % LVEDV BP 82.4 ml LV SV 29.6 ml LngAxs 6.96 cm LV SV 34.4 ml LngAxs 7.36 cm LV SV BP 31.9 ml LVPW LVPWd 1.36 cm Ventricular Septum IVSd 1.32 cm Left Atrium LA VOLBP 72.9 ml Aorta Ao Rtd 2.4 cm LVOT LVOT 2 cm LVOTArea 3.14 cm2 Ratios IVS LA Biplane LAVol I BP 38.6 ml/m2 RA Single Plane Right Atrium MO 13.4 mm Right Atrium Sy 51.1 ml Right Atrium Sy 64.4 mm Right Atrium Sy 27 ml/m2 Right Atrium Sy 20 cm2 Right Ventricle Right Ventricle 27 mm Right Ventricle 32. 8 mm [facility] 77.7 mm Signed 10/16/2021 06:42 PM Tere Cedillo M.D. EKG: Results for orders placed or performed during the hospital encounter of 10/22/21 ECG [address] [facility] Test Date: 2021-10-22 Pat Name: ANA MARIA BOBO Department: 41 Room: [facility] Gender: Female Credit Report Checker: : 1945 Requested By: SANJANA BATES Order Number: [id number] Reading MD: Sanjana Ludwig Measurements Intervals [place] Rate: 86 P: MS: 0 QRS: -37 QRSD: 160 T: 98 QT: 411 QTc: 494 Interpretive Statements ATRIAL FIBRILLATION LEFT AXIS DEVIATION [QRS AXIS < -30] LEFT BUNDLE BRANCH BLOCK [120+ ms QRS DURATION, 80+ ms Q/S IN V1/V2, 85+ ms R IN I/aVL/V5/V6] Compared to ECG 10/15/2021 17:09:13 Left-axis deviation now present ECG 12 lead Narrative [place] Test Date: 2021-10-28 Pat Name: ANA MARIA BOBO Department: 40 Room: [id number] Gender: Female Credit Report Checker: : 1945 Requested By: ASHU DENG Order Number: [id number] Reading MD: Tere Cedillo Measurements Intervals [place] Rate: 94 P: MS: 0 QRS: -39 QRSD: 159 T: 89 QT: 365 QTc: 458 Interpretive Statements ATRIAL FIBRILLATION LEFT BUNDLE BRANCH BLOCK [120+ ms QRS DURATION, 80+ ms Q/S IN V1/V2, 85+ ms R IN I/aVL/V5/V6] Compared to ECG 10/22/2021 18:11:32 No significant changes ECG 12 lead Narrative [address] Test Date: 2021-10-30 Pat Name: ANA MARIA BOBO Department: 40 Room: [id number] Gender: Female Credit Report Checker: : 1945 Requested By: ASHU DENG Order Number: [id number] Reading : Tere Cedillo Measurements Intervals [place] Rate: 88 P: MS: 0 QRS: -26 QRSD: 158 T: 116 QT: 380 QTc: 462 Interpretive Statements ATRIAL FIBRILLATION LEFT BUNDLE BRANCH BLOCK [120+ ms QRS DURATION, 80+ ms Q/S IN V1/V2, 85+ ms R IN I/aVL/V5/V6] Compared to ECG 10/28/2021 18:07:07 Left-axis deviation no longer present Assessment & Plan NSVT 10/28 patient had 9 beat run of Vtach, asymptomatic F/u EKG, electrolytes C/w BB telemetry Acute diverticulitis F/u CT abd/pelvis revealed acute diverticulitis Start cefoxitin IV, continue Will consult GI if pain does not improve Cannot start IVF at this time d/t heart failure Hypotension: Suspect over diuresis and poor oral intake following discharge as contributing factors. Patient status post 2 L normal saline given in the emergency room. We will hold on further IV fluid resuscitation at this time. Holding outpatient oral antihypertensive medications and diuretics. F/u BMP Monitor VS and pulse ox Fall precautions 10/25 resume lasix and BB tomorrow AM per cardiology if BP stable 10/26 remains hypotensive today; lasix resumed, then held per cardiology; BB on hold NSTEMI Cardiology consulted Trend trop F/u outpatient with Dr. Paredes for ischemic eval once stable Start ASA 81 mg per cardiology Telemetry 10/25 resume lasix in AM tomorrow with BB per cardiology if BP stable 10/26 lasix resumed, BP will not tolerate resuming BB today ??10/26 c/w lasix PO 10/30 plan for stress test tomorrow Acute on chronic renal Failure: suspect seconday to hypotension possible diuresis and continued administration of nephrotoxic medications and reduced oral intake. Medications reviewed will hold nephrotoxic medications. UA pending. status post 2 L normal saline to achieve and maintain euvolemia. Given history of heart failure monitor volume status closely avoid hypotension. Renally dose medications. Consider nephrology consult if not improved with correction of precipitating factors. F/u BMP -had held diuresis, Monitor Cr , No further IV fluids at this time 10/25 resume lasix in AM tomorrow per cardiology 10/26 will attempt to resume lasix again tomorrow if BP permits; BB remains on hold 10/28 c/w oral diuresis per cardiology Chronic heart failure reduced ejection fraction: Patient appears dry to euvolemic on exam currently holding outpatient antihypertensives and diuretic medications and nephrotoxic medications. C/w oral diuresis Continue cardiac medications as indicated. ?? CAP: Patient afebrile no leukocytosis we will continue current dose antibiotics pulmonary toilet pulm consulted F/u sputum culture Antibiotics discontinued per pulmonology ?? Acute hypoxic respiratory failure: Secondary to the above patient continues to be maintained on 2 L nasal cannula 1 L while sleeping patient also found to have respiratory acidosis started BiPAP, now dc'd f/u repeat ABG pulm consulted Improving Weaned to RA per pulm on 10/25 ?? A. fib currently rate controlled stroke risk reduction with Coumadin INR goal 2.5-3.5 for mechanical valve, pharmacy to dose. ?? Hyperlipidemia: Continue statin ?? Hypothyroidism continue methimazole follow-up PCP consider endocrinology referral. ?? GERD: Continue PPI Right MCA aneurysm Noted on CTA Also noted per radiology on prior imaging, though direct comparison not available Neurology consulted F/u MRI per enuro F/u EEG ?? - DVT prophylaxis: Coumadin - Diet/IVF: Cardiac - Code status: Full code - Disposition: Telemetry inpatient, stress test tomorrow, refusing placement as PT recs swing bed, prefers [facility] Plan of care discussed with patient, CM, cardiology. ASHU DENG MD * Zoey Ricks NP-Tiny - 10/30/2021 10:55 AM CDT Cardiology Daily Progress Reason for follow up: elevated trop, AF 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 Lj aortic valve (on warfarin), hypertension, obstructive sleep apnea compliant with CPAP. CAD, diabetes mellitus, HTN, HLD admitted on 10/22/2021 5:53 PM with weakness Subjective: No chest pain, breathing is better. Overall feels better but still weak and has some abd pain. She states she just feels weak Assessment: NSTEMI Mild elevation of 61 which then resolved. Has intermittent atypical CP at rest. Echo done last admit showed EF was 40-45%, global hypokinesis. Changed from 08/27 study showing EF 50-55% and no regional WM abn. Last stress in 12/2018 with normal perfusion imaging. Left bundle is not new. Coronary calcification on CT Discussed with patient again, we will plan for lexiscan stress test tomorrow. ?? Mechanical AVR Continue warfarin, INR goal is 2.5-3.5 INR today is 3.5- pharmacy dosing ?? MR, moderate Acute combined CHF. CT chest with no sig effusions or PVC. Oral lasix dosing. Weight and I/O inaccurate. Cont low dose BB; hold off on ACEI/ARB with hyperkalemia. A. fib Vent rate controlled on BB dosing. Warfarin per pharm Dr. Paredes had previously stopped low dose amiodarone Reviewed tele, no VT seen. Likely a fib with RVR Anemia Low, stable. Per others. 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 No VT seen on tele. Review of Systems Constitutional: Negative for malaise/fatigue. Respiratory: Negative for cough and shortness of breath. Cardiovascular: Negative for chest pain, palpitations and leg swelling. Gastrointestinal: Negative for abdominal pain and nausea. Musculoskeletal: Negative for myalgias. Neurological: Negative for dizziness. Objective: Scheduled Medications: ??? ceFOXItin 1 g Intravenous Q6H ??? furosemide 20 mg Oral Daily ??? gabapentin 300 mg Oral BID ??? lidocaine 1 patch Transdermal Q24H ??? methIMAzole 5 mg Oral Daily ??? metoprolol tartrate 12.5 mg Oral BID ??? morphine 1 mg Intravenous Once ??? pantoprazole EC 20 mg Oral Daily ??? senna-docusate 1 tablet Oral Nightly at bedtime ??? venlafaxine XR 150 mg Oral Daily with breakfast ??? warfarin (COUMADIN) pharmacy to dose Oral See Admin Instructions acetaminophen, albuterol sulfate HFA, ALPRAZolam, calcium carbonate, dextrose 10 % bolus, glucagon,glucose, HYDROcodone-acetaminophen, yduzkfwqw-iwvyigms-nqiraxelhqc, naLOXone, ondansetron, polyethylene glycol Vitals: Filed Vitals: 10/29/21 1936 10/29/21 2300 10/30/21 0347 10/30/21 0719 BP: 121/82 120/88 110/73 (!) 147/83 Pulse: 112 104 93 119 Resp: 26 Temp: 98.4 ??F (36.9 ??C) 98.6 ??F (37 ??C) 98.2 ??F (36.8 ??C) 98.6 ??F (37 ??C) TempSrc: Oral Oral Oral Oral SpO2: 100% 98% 98% Weight: Height: I/O: Intake/Output Summary (Last 24 hours) at 10/30/2021 1056 Last data filed at 10/30/2021 0800 Gross per 24 hour Intake 240 ml Output -- Net 240 ml Last 3 Recorded Weights 10/25/21 0410 10/26/21 0445 10/29/21 0215 Weight: 85.5 kg (188 lb 7.9 oz) 85.7 kg (188 lb 15 oz) 87.1 kg (192 lb) Physical Exam: Physical Exam Vitals reviewed. Constitutional: General: She is not in acute distress. Appearance: She is well-developed. HENT: Head: Normocephalic and atraumatic. Nose: No mucosal edema. Neck: Vascular: No JVD. Cardiovascular: Rate and Rhythm: Normal rate. Rhythm irregular. No extrasystoles are present. Heart sounds: S1 normal and S2 normal. Murmur heard. Pulmonary: Effort: Pulmonary effort is normal. No respiratory distress. Breath sounds: Normal breath sounds. No rales. Abdominal: General: Bowel sounds are normal. Palpations: Abdomen is soft. Tenderness: There is no abdominal tenderness. Musculoskeletal: General: Swelling present. Cervical back: Neck supple. Skin: General: Skin is warm and dry. Coloration: Skin is pale. Neurological: Mental Status: She is alert and oriented to person, place, and time. Psychiatric: Behavior: Behavior normal. Thought Content: Thought content normal. Lab/Radiology/Diagnostic Review: Recent Labs Lab 10/28/21 0805 10/28/21 1922 10/29/21 0704 10/30/21 0659 WBC 4.5 -- 4.7 4.4* RBC 2.49* -- 2.63* 2.44* HGB 7.6* -- 8.2* 7.5* HCT 26.2* -- 28.3* 25.8* NA 143 141 144 142 K 5.4* 5.2* 5.2* 5.0 CL 115* 113* 115* 115* CO2 26.1 26.9 25.8 25.0 AGAP 1.9* 1.1* 3.2* 2.0* BUN 20* 19* 17 16 CR 1.12* 1.10* 0.93 1.03* BUNCREATININ 17.9 17.3 18.4 15.5 GLU 90 136* 95 81 CA 9.6 9.6 10.1 9.8 TP 5.4* 5.6* 5.8* 5.4* ALB 2.2* 2.3* 2.5* 2.3* TBIL 0.3 0.3 0.4 0.4 ALKP 83 86 86 82 AST 25 22 25 25 ALT 22 23 25 25 Recent Labs Lab 10/24/21 1353 10/24/21 1646 TROP 35 32 Recent Labs Lab 10/28/21 0805 10/29/21 0704 10/30/21 0659 INR 3.4 3.3 3.5 No results for input(s): CHOL, TRI, HDL, LDL in the last 168 hours. Tele: AF with stable vent rates I spent 30 minutes today reviewing the patient's medical record, obtaining history, performing an exam, ordering medications, tests, and/or procedures, documenting in the medical record, referring and/or communicating with other health care providers, counseling, and educating the patient/family/caregiver, reviewing and communicating test results, and coordination of care. ZOEY RICKS NP-Tiny Cosigned by Tere Cedillo MD at 10/30/2021 11:54 AM CDT * Silvina Lucas RN - 10/30/2021 10:51 AM CDT Problem: Reduced risk for falls/injury [...] to cope with his/her illness. Outcome: Progressing Problem: Discharge Barriers Goal: Patient's discharge needs are met Description: Collaborate with interdisciplinary team and initiate plans and interventions as needed. Outcome: Progressing Problem: Mobility Goal: STG - Pt will ambulate Outcome: Progressing Problem: Toileting Goal: STG - Pt will complete management (up/down) with Description: SBS/MOD I WITH WW Outcome: Progressing Problem: Transfers Goal: STG - Pt will perform a toilet transfer with Description: SBS/MOD I Outcome: Progressing * Juan Pablo Leon RN - 10/29/2021 11:38 PM CDT Problem: Reduced risk for falls/injury Goal: Reduced Risk for Falls/Injury 10/29/20212335 by Juan Pablo Leon RN Outcome: Met This Shift 10/29/20212200 by Juan Pablo Leon RN Outcome: Met This Shift Goal: Reduced Risk of Confusion (Acute vs Chronic) 10/29/20212335 by Juan Pablo Leon RN Outcome: Met This Shift 10/29/20212200 by Juan Pablo Leon RN Outcome: Met This Shift Goal: Reduced Risk of Symptomatic Depression 10/29/20212335 by Juan Pablo Leon RN Outcome: Met This Shift 10/29/20212200 by Juan Pablo Leon RN Outcome: Met This Shift Goal: Reduced Risk of Altered Elimination 10/29/20212335 by Juan Pablo Leon RN Outcome: Met This Shift 10/29/20212200 by Juan Pablo Leon RN Outcome: Met This Shift Goal: Reduced Risk of Dizziness/Vertigo/Balance 10/29/20212335 by Juan Pablo Leon RN Outcome: Met This Shift 10/29/20212200 by Juan Pablo Leon RN Outcome: Met This Shift Goal: Reduced Risk of Polypharmacy 10/29/20212335 by Juan Pablo Leon RN Outcome: Met This Shift 10/29/20212200 by Juan Pablo Leon RN Outcome: Met This Shift Problem: Pain Goal: Patient's pain/discomfort is manageable Description: Assess and monitor patient's pain using appropriate pain scale. Collaborate with interdisciplinary team and initiate plan and interventions as ordered. Re-assess patient's pain level 30 - 60 minutes after pain management intervention. 10/29/20212335 by Juan Pablo Leon RN Outcome: Met This Shift 10/29/20212200 by Juan Pablo Leon RN Outcome: Met This Shift Problem: Safety Goal: Patient will be injury [...] up per policy, and non-skid footwear provided. 10/29/20212335 by Juan Pablo Leon RN Outcome: Met This Shift 10/29/20212200 by Juan Pablo Leon RN Outcome: Met This Shift Problem: Daily Care Goal: Daily care needs are met Description: Assess and monitor ability to perform self care and identify potential discharge needs. Outcome: Met This Shift * Juan Pablo Leon RN - 10/29/2021 10:01 PM CDT Problem: Reduced risk for falls/injury Goal: Reduced Risk for Falls/Injury Outcome: Met This Shift Goal: Reduced Risk of Confusion (Acute vs Chronic) Outcome: Met This Shift Goal: Reduced Risk of Symptomatic Depression Outcome: Met This Shift Goal: Reduced Risk of Altered Elimination Outcome: Met This Shift Goal: Reduced Risk of Dizziness/Vertigo/Balance Outcome: Met This Shift Goal: Reduced Risk of Polypharmacy Outcome: Met This Shift Problem: Pain Goal: Patient's pain/discomfort is manageable Description: Assess and monitor patient's pain using appropriate pain scale. Collaborate with interdisciplinary team and initiate plan and interventions as ordered. Re-assess patient's pain level 30 - 60 minutes after pain management intervention. Outcome: Met This Shift Problem: Safety Goal: Patient will be injury [...] per policy, and non-skid footwear provided. Outcome: Met This Shift Problem: Daily Care Goal: Daily care needs are met Description: Assess and monitor ability to perform self care and identify potential discharge needs. Outcome: Met This Shift * Betty Acosta PTA - 10/29/2021 3:38 PM CDT 10/29/21 1319 Therapy Visit Ordering Provider Ismael Sanchez RM [phone]: Pt supine in bed and agreeable to therapy. Reason for admission OLIVE Relevant Comorbidities/ Personal Factors to PT 10/15/21 PNA and disch'd home 10/21/21 and returned dueto weakness, afib, aflutter, CAD, HTN, DM, HLD, GERD, HYPOTHYROIDISM Verified Two Patient Identifiers Yes Patient consents to therapy Yes Acute Inpatient PT Time Calculation PT Start Time 1319 PT Stop Time 1333 PT Time Calculation (min) 14 min Precautions General Precautions Bed Alarm;Chair Alarm;Fall Risk;Supplemental oxygen PPE Used Face mask;Gloves Instructed on Precautions Yes;Needs reinforcement and education Pain Pain Yes Pain Score Did not rate Location B knees Interventions Re-positioning;Re-direction;Informed RN Activity Tolerance Endurance Tolerates 10 - 20 min activity with rests Endurance Quality Fair Limiting Factors to Endurance Acute deconditioning;Fatigue Activity Tolerance Comments Toileting needed pre and post ambulation. Pt ambulated small distance to toilet with no AD, however reaches out for surfaces to maintain balance. Cognition Orientation Level Oriented X4 Following Commands Follows one step commands consistently Safety Judgment Decreased awareness of need for safety Bed Mobility Supine to Sit Modified independence Other (Comment) Use of bed rails and HOB elevated TRANSFERS Sit to Stand Modified independence;SBA/supervision (STS x 3) Gait Gait Assistance Min assist;SBA/supervision Assistive Device 2 Wheeled walker Distance Ambulated (ft) (10' x 1, 70' x 1, 15' x 1) Other (Comment) Mild foward flex posture, moderate royer, dec stride. Limited gait tolerance, as pt fatigues quickly. No LOB noted or c/o SOB. Stairs Other (Comment) if going home, pt has 3 steps to enter friend's house. Balance Sitting - Static Independent Sitting - Dynamic Independent Standing - Static SBA;Min Assist;Support of both upper extremities Standing - Dynamic SBA;Min Assist Patient/Family Training Bed Mobility x Transfer Training x Gait Training x Precautions x Recommendation PT Recommendation Swing bed unit (or home with assistance and HHC pending progress) PT Equipment Recommended Currently has DME in Place Plan PT Treatments/Interventions Gait Training;Therapeutic Exercises;Therapeutic Activities Progress Progressing toward goals PT Frequency Daily;5 times/week PT plan for next session cont gait, endurance and balance If this is the last treatment note,it will serve as the discharge summary Yes End of Session End of Session Safety Chair alarm set/activated;Call light within reach;Nursing aware of session * Oneil Michelle RN - 10/29/2021 1:51 PM CDT Spoke with patient at bedside regarding PT recommendations of sesing bed. Patient continues to refuse swing bed at discharge, prefers to have [facility] follow at discharge. * Eleni Madrigal RN - 10/29/2021 1:09 PM CDT Problem: Reduced risk for falls/injury Goal: [...] and interventions as needed. Outcome: Progressing Problem: Mobility Goal: STG - Pt will ambulate Outcome: Progressing * Ashu Deng MD - 10/29/2021 11:32 AM CDT Hospitalist Daily Progress Note Subjective Overnight: patient had 9 beat run of asymptomatic Vtach, labs ordered and EKG reviewed with cardiology Pt reports abdominal improving, denies N/V Pt reports LE weakness since recent hospital stay Reports shortness of breath improving Denies chest pain Denies confusion, palpitations, or dizziness Objective Filed Vitals: 10/29/21 1856 10/29/21 1936 10/29/21 2300 10/30/21 0347 BP: 120/64 121/82 120/88 110/73 Pulse: 117 112 104 93 Resp: 18 Temp: 98.2 ??F (36.8 ??C) 98.4 ??F (36.9 ??C) 98.6 ??F (37 ??C) 98.2 ??F (36.8 ??C) TempSrc: Oral Oral Oral SpO2: 100% 100% 98% Weight: Height: Intake/Output 24H Total: Intake/Output Summary (Last 24 hours) at 10/30/2021 0632 Last data filed at 10/29/2021 1021 Gross per 24 hour Intake 200 ml Output -- Net 200 ml Physical Exam: -GENERAL: No acute distress, Well nourished, on NC -HEAD: Normocephalic, Atraumatic -EYES: Extraocular movements intact, PERRL -LUNGS: Effort normal, diminished b/l bases, coarse breath sounds -CVS: Regular rate and rhythm, S1 and S2 normal -ABDOMEN: Soft, Non tender, Non distended -EXT: No edema, FROM -NEURO: Awake, alert, oriented, No gross neuro deficits -SKIN: No significant rashes, warm Medications ??? ceFOXItin 1 g Intravenous Q6H ??? furosemide 20 mg Oral Daily ??? gabapentin 300 mg Oral BID ??? lidocaine 1 patch Transdermal Q24H ??? methIMAzole 5 mg Oral Daily ??? metoprolol tartrate 12.5 mg Oral BID ??? morphine 1 mg Intravenous Once ??? pantoprazole EC 20 mg Oral Daily ??? senna-docusate 1 tablet Oral Nightly at bedtime ??? venlafaxine XR 150 mg Oral Daily with breakfast ??? warfarin (COUMADIN) pharmacy to dose Oral See Admin Instructions acetaminophen, albuterol sulfate HFA, ALPRAZolam, calcium carbonate, dextrose 10 % bolus, glucagon,glucose, HYDROcodone-acetaminophen, dctiajpnf-somjbhnp-wdxusrhnfpi, naLOXone, ondansetron, polyethylene glycol Labs, Imaging, Other Studies Recent Labs Lab 10/24/21 0351 10/25/21 0550 10/26/21 0415 10/27/21 0737 10/28/21 0805 10/29/21 0704 WBC 6.0 4.6 4.4* 5.0 4.5 4.7 RBC 2.58* 2.49* 2.47* 2.60* 2.49* 2.63* HGB 8.1* 7.9* 7.7* 8.1* 7.6* 8.2* HCT 26.9* 26.4* 25.8* 27.3* 26.2* 28.3* MCV 104.3* 106.0* 104.5* 105.0* 105.2* 107.6* MCH 31.4* 31.7* 31.2* 31.2* 30.5 31.2* MCHC 30.1* 29.9* 29.8* 29.7* 29.0* 29.0* PLT 152 151 147 166 162 142 RDW 12.3 12.3 12.2 12.2 12.1 12.4 MPV 13.9* 13.5* 13.4* 13.3* 13.6* 13.7* PERNEU 68.2 50.5 51.5 57.8 60.1 59.1 PERLYM 12.0 22.5 21.4 20.0 17.4 17.5 PERMON 17.1 21.9 20.8 16.6 17.2 17.7 LYMC 0.72* 1.03 0.95* 1.00 0.78* 0.83* MONOC 1.03* 1.00* 0.92* 0.83 0.77 0.84 EOSC 0.11 0.19 0.24 0.22 0.19 0.20 BASOC 0.04 0.03 0.03 0.05 0.04 0.05 DTYPE AUTOMATED DIFFERENTIAL AUTOMATED DIFFERENTIAL AUTOMATED DIFFERENTIAL AUTOMATED DIFFERENTIAL AUTOMATED DIFFERENTIAL AUTOMATED DIFFERENTIAL Recent Labs Lab 10/24/21 0351 10/25/21 0550 10/26/21 0415 10/27/21 0737 10/28/21 0805 10/28/21 1922 10/29/21 0704 NA 137 139 143 140 143 141 144 K 5.3* 5.0 5.2* 5.1 5.4* 5.2* 5.2* CL 111* 112* 116* 113* 115* 113* 115* CO2 24.5 25.8 26.1 24.6 26.1 26.9 25.8 AGAP 1.5* 1.2* 0.9* 2.4* 1.9* 1.1* 3.2* BUN 60* 48* 33* 25* 20* 19* 17 CR 1.89* 1.26* 0.95 0.97 1.12* 1.10* 0.93 BUNCREATININ 31.7* 38.1* 34.7* 25.8 17.9 17.3 18.4 GLU 124* 73 87 94 90 136* 95 CA 8.7 8.7 9.0 9.6 9.6 9.6 10.1 TP -- 5.4* 5.4* 6.2* 5.4* 5.6* 5.8* ALB -- 2.4* 2.3* 2.5* 2.2* 2.3* 2.5* TBIL -- 0.5 0.4 0.3 0.3 0.3 0.4 ALKP -- 81 83 92 83 86 86 AST -- 17 22 28 25 22 25 ALT -- 17 18 25 22 23 25 No results for input(s): CHOL, TRI, HDL, LDL, HGBA1C, TSH in the last 168 hours. Recent Labs Lab 10/27/21 0737 10/28/21 0805 10/29/21 0704 INR 4.3 3.4 3.3 Recent Labs Lab 10/24/21 1353 10/24/21 1646 TROP 35 32 No results for input(s): LACTICACID, PROCT in the last 168 hours. Recent Labs Lab 10/24/21 0614 PH 7.33* PCO2 44.6 PO2 153* BICARBWB 23.5 BASEDEFICIT 2.5* No results found for this or any previous visit. Imaging ULTRASOUND GENERIC Result Date: 10/03/2021 Ordered by an unspecified provider. IMAGE GENERIC Result Date: 10/02/2021 Ordered by an unspecified provider. CT GENERIC Result Date: 10/03/2021 Ordered by an unspecified provider. CTA CHEST Result Date: 10/15/2021 Examination: CTA CHEST Clinical history: Chest pain Comparison: X-ray, same date DATE/TIME: 10/15/2021 5:13 PM Technique: Multiplanar images of the chest were obtained following the uneventful intravenous administration of 80 mL Isovue 370. 3D Post-processed images were reconstructed on an independent workstation. A dose lowering technique was used for this procedure, which may include, but is not limited to, dose reduction technique, automated exposure control, the use of iterative reconstruction, and ALARA (As Low As Reasonably Achievable) / Image Gently techniques. Findings: There is adequate pulmonary artery opacification. No evidence of pulmonary embolism. Mild to moderate cardiomegaly. Aortic valve prosthesis. Coronary artery calcifications. No pericardial effusion. Thoracic aorta is normal caliber. No mediastinal or hilar lymphadenopathy. No evidence of pneumonia or pulmonary edema. No pleural effusion or pneumothorax. Thoracic compression deformity of T6 with 75% anterior heightloss, appearing chronic. There is minimal retropulsion into the spinal canal with Mild spinal canal narrowing. Sternotomy. Thoracic spondylosis. IMPRESSION: 1. No evidence of pulmonary embolism or other acute findings. 2. Cardiomegaly. 3. Otherchronic or nonurgent findings as described above. Referred By: Interpreted By: Estevan Martines MD, 10/15/2021 5:52 PM CTA HEAD Result Date: 10/23/2021 DATE: 10/22/2021 12:37 PM INDICATION: Right MCA aneurysm. EXAMINATION: CT angiography of the head. TECHNIQUE: CT angiography of the head was performed after uneventful intravenous administration of 80mL IOPAMIDOL 76 % IV SOLN. CT dose reduction techniques were utilized. Axial and 3-D/MIP images were reconstructed and reviewed. Additional 3-D reconstructions and/or postprocessing were performed on a separate dedicated 3-D workstation. A dose lowering technique was used for this procedure, which may include, but is not limited to, dose reduction technique, automated exposure control, the use of iterative reconstruction, and ALARA (As Low As Reasonably Achievable) / Image Gently techniques. COMPARISON: Report from catheter angiography performed 08/10/2020, images not available for direct comparison. FINDINGS: CTA HEAD: There is a 3-4 mm vascular outpouching at the right MCA bifurcation, corresponding to patient's known right MCA aneurysm. Scattered atherosclerotic calcifications seen along t he cavernous and supraclinoid ICA segments, but with less than 50% narrowing suggested. 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 Anterior communicating artery is patent. Otherwise the proximal portions of the anterior and middle cerebral arteries are patent. Atherosclerotic calcifications seen along the vertebral artery V4 segments, without significant narrowing. Basilar artery patent to the terminus. 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 Proximal portions of the posterior cerebral arteries, superior cerebellar arteries, and PICA branches are patent. Right posterior communicating artery not well- visualized. SOFTTISSUES: Small vessel disease and volume loss. Bilateral lens replacements. IMPRESSION: 1. 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 Similar findings described on prior catheter angiography examination 08/10/2020, though no images are available for direct comparison. Ordered By: SULEMAN WEBSTER Interpreted By: Dale Brush MD, 10/23/2021 9:21 AM USV NEGRITA DUPLEX LOW EXT RT Result Date: 10/21/2021 VENOUS DUPLEX IMAGING RIGHT LOWER EXTREMITY VASCULAR LAB Pat.Name: ANA MARIA BOBO Pat.ID: [id number] St.Date: 10/15/2021 Exam Time: 4:09:00 PM Study Type:TOYA VS Venous Duplex Leg Rt Age: 3 1945,76Y Sex: FEMALE Sonogrphr: Diana Bronson RVT Pat. Stat.:Outpatient Room: ER History / Clinical:Chest pain. Calf injury, redness, edema. PMH, cad, dm, htn, ckd, hld, copd Procedures: Carrillo scale, Color Doppler imaging, Doppler Spectral Analysis Race: W ++++++++++++++++++++++++++++++++++++ SUMMARY: ++++++++++++++++++++++++++++++++++++ Right leg: There are NO apparent, deep or superficial vein, ACUTE character venous filling defects visualized in the femoral, popliteal, deep calf or proximal saphenous veins. Resting venous flow is normal phasic proximally. No valve reflux with compression maneuvers is detected in the femoral and popliteal veins. Left leg LIMITED: Resting venous flow is normal phasic at the common femoral. No valve reflux with compression maneuvers is detected in the common femoral vein. CONCLUSION: Normal study right lower extremity, with no evidence of acute deep or superficial vein thrombosis. There is no significant reflux detected. ++++++++++++++++++++++++++++++++++++ FINDINGS: ++++++++++++++++++++++++++++++++++++ Signed 10/21/2021 12:57 PM José Kaiser M.D. XR CHEST PA+LAT Result Date: 10/19/2021 Examination: Chest x-ray 2 view Exam Date/Time: 10/19/2021 7:00 AM Reason For Exam: chf Comparison: 10/15/2021 chest radiograph Technique: PA and lateral views of the chest were obtained. Findings: Heart size prominent but stable from prior study. Post sternotomy changes again seen including fractured wires. Atherosclerotic aorta. Increased AP dimensional airspace and flattening of diaphragms. Pulmonary vascularity stable from prior study. Interval worsening of opacities at the lung bases more so on the left obscuring diaphragm shadow on frontal view. Upper lungs clear. ======== IMPRESSION: ======== 1. Developing opacity at the anterior left lung base may be infiltrate or atelectasis. Stable interval appearance of the chest otherwise. Referred By: Interpreted By: Quoc Wilkinson MD, 10/19/2021 7:10 AM XR CHEST PORTABLE Result Date: 10/22/2021 Exam: Chest x-ray Comparison 10/19/2021 INDICATION: Recent hospital discharge for pneumonia. Dyspnea. TECHNIQUE: One view FINDINGS: The heart is enlarged. Median sternotomy and valve replacement. Central pulmonary vessels are partially obscured but are within normal limits for size. The right lung is clear. Indistinctness of the left lung base and hemidiaphragm. Uncertain significance with portable technique and superimposed soft tissues. There could be a component of lung opacification or smallpleural effusion present. No substantial change from the prior exam allowing for differences in patient positioning. The remainder of the left lung is clear. IMPRESSION: 1. Enlarged heart. 2. Artifact versus some mild increased density in the left lung base. Referred By: Interpreted By: Neel Basurto MD, 10/22/2021 6:20 PM XR CHEST PORTABLE Result Date: 10/15/2021 Examination: Chest 1 view portable History: Chest pain DATE/TIME: 10/15/2021 1:17 PM Comparison: NoneTechnique: AP upright portable view of the chest was obtained. Findings: Sternotomy. Heart size andmediastinal contours are normal. Borderline pulmonary vasculature. No pulmonary consolidation, pleural effusion or pneumothorax. No acute osseous abnormality. Old left clavicle fracture. Impression: 1. No acute infiltrate. 2. Borderline vascular congestion. Referred By: Interpreted By: Estevan Martines MD, 10/15/2021 1:33 PM USE ECHOCARDIOGRAM W CON Result Date: 10/16/2021 Echocardiography Report Pat.Name: ANA MARIA BOBO Pat.ID: [id number] St.Date: 10/16/2021 Exam Time: 3:01:00 PM Study Type:ECHO WITH CARDIAC DOPPLER COMP Height: 64in Weight: 183.62lb BSA: 1.89 m2 Age: 3 1945,76Y Sex: FEMALE BP: 115/57 HR: 91 bpm Sonogrphr: Becky Martel [facility] Pat. Stat .:Inpatient Room: [facility] Reason for Study: Aortic valve replacement, Congestive heart failure, Dyspnea on exertion, Murmur History / Clinical: Chest pain. Calf injury, redness, edema. PMH, cad, dm, htn, ckd, hld, copd Procedures: 2D, M- mode, Doppler, Color Flow, Definity was used to enhance endocardial definition., The study quality is technically difficult. Race: W ++++++++++++++++++++++++++++++++++++ SUMMARY: ++++++++++++++++++++++++++++++++++++ The left ventricular size is normal. Estimated left ventricular ejection fraction is 40-45%. Moderate concentric left ventricular hypertrophy. Left ventricular diastolic function is abnormal (grade 2 - pseudonormal pattern). ?Moderate global hypokinesis is noted. The right ventricular size is normal. Right ventricular systolic function is moderately depressed. A mechanical valve is in the aortic position with post-deployment peak velocity of3.53m/sec, mean gradient of 31mmHg and a calculated YADIRA of 1.10cm2. Right ventricular systolic pressure is 40-50 mmHg suggestive of mild to moderate pulmonary hypertension. Mild to moderate tricuspidregurgitation. Moderate mitral regurgitation. ++++++++++++++++++++++++++++++++++++ FINDINGS: ++++++++++++++++++++++++++++++++++++ LV: The left ventricular size is normal. Estimated left ventricular ejection fraction is 40-45%. Moderate concentric left ventricular hypertrophy. Left ventricular diastolic function is abnormal (grade 2 - pseudonormal pattern). WM: Moderate global hypokinesis is noted. RV: The right ventricular size is normal. Right ventricular systolic function is moderately depressed. IVS: No evidence of ventricular septal defect. LA: The left atrial size is mildly enlarged. Theleft atrial volume is mildly increased (34- 41ml/M2). RA: Right atrial size is mildly enlarged. IAS: Atrial septum appears intact. DENICE: No evidence of pericardial effusion. AO: Normal aortic root. PA: Estimated right atrial pressure of 15 mmHg. SVn: Inferior vena cava is mildly enlarged. Inferiorvena cava shows <50% collapse with respiration consistent with elevated right atrial pressure. AV: Mechanical prosthetic aortic valve seen. A trace of denice-prosthetic aortic valve regurgitation. A mechanical valve is in the aortic position with post-deployment peak velocity of 3.53m/sec, mean gradient of 31mmHg and a calculated YADIRA of 1.10cm2. MV: Moderate mitral regurgitation. No evidence ofmitral stenosis. PV: No evidence of pulmonic valve stenosis. Mild pulmonic regurgitation. TV: Mild to moderate tricuspid regurgitation. Right ventricular systolic pressure is 40-50 mmHg suggestive of mild to moderate pulmonary hypertension. No evidence of tricuspid valve stenosis. ++++++++++++++++++++++++++++++++++++ MEASUREMENTS: ++++++++++++++++++++++++++++++++++++ DOPPLER LVOT LVOTpkPG 8 mmHg LVOTmnPG 4 mmHg LVOTpkVel 141 cm/s (70-110)+* LVOT SV 83 ml LVOT TVI 26.3 cm Right Atrium RA Press15 mmHg Ayala's Disk 20 AV Forward Flow AV TVI 51.2 cm AV pkPG 37 mmHg AV pkVel 305 cm/s (100-170)+* Area (TVI) 1.61 cm2 (3-5)* AV mnPG 21 mmHg Area (Randall) 1.45 cm2 (3-5)* AV Regurg Flow AV pkVel 381 cm/s AV P1/2t 290 ms AV pkPG 58 mmHg MV Forward Flow MV DeTm 257 ms MV pkPG 9 mmHg MV mnPG 3 mmHg MV pkE 134 cm/s (60-130)+* PV Forward Flow PV pkVel 96.4 cm/s (60-90)* PV AC 109 ms PV pkPG 4 mmHg TV Regurg Flow TV pkPG 26 mmHg TV pkVel 253 cm/s (30-70)+* Right Ventricle RVsys P 41 mmHg Right Ventricle 5.32 cm/s Lat E' Lat e 7.2 cm/s Lat E/E' Lat E/e 18.6 Med E' Med e 4.94 cm/s Med E/E' Med E/e 27.1 Aortic Valve Aortic Valve Ar 0.85 Aortic Valve Ve 0.46 PV Antegrade Flow Acceleration Sl 573 cm/s2 TAPSE Distance 8 mm 2D Left Ventricle LVIDd 4.8 cm (3.6-5.2)+ LV ESV 52.6 ml LVIDs 3.63 cm (2.3-3.9)+ LV ESV 46.2 ml LngAxd 7.03 cm LVESV BP 50.5 ml LngAxd 7.4 cm LV EF 36.1 % LV EDV 82.2 ml LVEF 42.7 % LV EDV 80.4 ml LV EF BP 38.7 % LVEDV BP 82.4 ml LV SV 29.6 ml LngAxs 6.96 cm LV SV 34.4 ml LngAxs 7.36 cm LV SV BP 31.9 ml LVPW LVPWd 1.36 cm Ventricular Septum IVSd 1.32 cm Left Atrium LAVOLBP 72.9 ml Aorta Ao Rtd 2.4 cm LVOT LVOT 2 cm LVOTArea 3.14 cm2 Ratios IVS LA Biplane LAVol I BP 38.6 ml/m2 RA Single Plane Right Atrium MO 13.4 mm Right Atrium Sy 51.1 ml Right Atrium Sy 64.4 mm Right Atrium Sy 27 ml/m2 Right Atrium Sy 20 cm2 Right Ventricle Right Ventricle 27 mm Right Ventricle 32.8 mm Major [place] [facility] 77.7 mm Signed 10/16/2021 06:42 PM Tere Cedillo M.D. EKG: Results for orders placed or performed during the hospital encounter of 10/22/21 ECG 12 lead Narrative [facility] [address] Test Date: 2021-10-22 Pat Name: ANA MARIA BOBO Department: 41 Room: B443 Gender: Female Credit Report Checker: : 1945 Requested By: SANJANA BATES Order Number: [id number] Reading MD: Sanjana Ludwig Measurements Intervals [place] Rate: 86 P: MS: 0 QRS: -37 QRSD: 160 T: 98 QT: 411 QTc: 494 Interpretive Statements ATRIAL FIBRILLATION LEFT AXIS DEVIATION [QRS AXIS < -30] LEFT BUNDLE BRANCH BLOCK [120+ ms QRS DURATION, 80+ ms Q/S IN V1/V2, 85+ ms R IN I/aVL/V5/V6] Compared to ECG 10/15/2021 17:09:13 Left-axis deviation now present ECG 12 lead Narrative [facility] [place] [address] [facility] Test Date: 2021-10-28 Pat Name: ANA MARIA BOBO Department: 40 Room: [id number] Gender: Female Credit Report Checker: : 1945 Requested By: ASHU DENG Order Number: [id number] Reading MD: Measurements Intervals [place] Rate: 94 P: MS: 0 QRS: -39 QRSD: 159 T: 89 QT: 365 QTc: 458 Interpretive Statements ATRIAL FIBRILLATION MARKED LEFT AXIS DEVIATION [QRS AXIS < -30] LEFT BUNDLE BRANCH BLOCK [120+ ms QRS DURATION, 80+ ms Q/S IN V1/V2, 85+ ms R IN I/aVL/V5/V6] Compared to ECG 10/22/2021 18:11:32 No significant changes Assessment & Plan NSVT 10/28 patient had 9 beat run of Vtach, asymptomatic F/u EKG, electrolytes C/w BB telemetry Acute diverticulitis F/u CT abd/pelvis revealed acute diverticulitis Start cefoxitin IV, continue Will consult GI if pain does not improve Cannot start IVF at this time d/t heart failure Hypotension: Suspect over diuresis and poor oral intake following discharge as contributing factors. Patient status post 2 L normal saline given in the emergency room. We will hold on further IV fluid resuscitation at this time. Holding outpatient oral antihypertensive medications and diuretics. F/u BMP Monitor VS and pulse ox Fall precautions 10/25 resume lasix and BB tomorrow AM per cardiology if BP stable 10/26 remains hypotensive today; lasix resumed, then held per cardiology; BB on hold NSTEMI Cardiology consulted Trend trop F/u outpatient with Dr. Paredes for ischemic eval once stable Start ASA 81 mg per cardiology Telemetry 10/25 resume lasix in AM tomorrow with BB per cardiology if BP stable 10/26 lasix resumed, BP will not tolerate resuming BB today ??10/26 c/w lasix PO Acute on chronic renal Failure: suspect seconday to hypotension possible diuresis and continued administration of nephrotoxic medications and reduced oral intake. Medications reviewed will hold nephrotoxic medications. UA pending. status post 2 L normal saline to achieve and maintain euvolemia. Given history of heart failure monitor volume status closely avoid hypotension. Renally dose medications. Consider nephrology consult if not improved with correction of precipitating factors. F/u BMP -had held diuresis, Monitor Cr , No further IV fluids at this time 10/25 resume lasix in AM tomorrow per cardiology 10/26 will attempt to resume lasix again tomorrow if BP permits; BB remains on hold 10/28 c/w oral diuresis per cardiology Chronic heart failure reduced ejection fraction: Patient appears dry to euvolemic on exam currently holding outpatient antihypertensives and diuretic medications and nephrotoxic medications. C/w oral diuresis Continue cardiac medications as indicated. ?? CAP: Patient afebrile no leukocytosis we will continue current dose antibiotics pulmonary toilet pulm consulted F/u sputum culture Antibiotics discontinued per pulmonology ?? Acute hypoxic respiratory failure: Secondary to the above patient continues to be maintained on 2 L nasal cannula 1 L while sleeping patient also found to have respiratory acidosis started BiPAP, now dc'd f/u repeat ABG pulm consulted Improving Weaned to RA per pulm on 10/25 ?? A. fib currently rate controlled stroke risk reduction with Coumadin INR goal 2.5-3.5 for mechanical valve, pharmacy to dose. ?? Hyperlipidemia: Continue statin ?? Hypothyroidism continue methimazole follow-up PCP consider endocrinology referral. ?? GERD: Continue PPI Right MCA aneurysm Noted on CTA Also noted per radiology on prior imaging, though direct comparison not available Neurology consulted F/u MRI per enuro F/u EEG ?? - DVT prophylaxis: Coumadin - Diet/IVF: Cardiac - Code status: Full code - Disposition: Telemetry inpatient, refusing placement as PT recs swing bed, prefers [facility] Plan of care discussed with patient, CM. 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 Lj aortic valve (on warfarin), hypertension, obstructive sleep apnea compliant with CPAP. CAD, diabetes mellitus, HTN, HLD admitted on 10/22/2021 5:53 PM with weakness Subjective: No chest pain, breathing is better. Overall feels better but still weak and has some abd pain Assessment: NSTEMI Mild elevation of 61 which then resolved. Echo done last admit showed EF was 40-45%, global hypokinesis. Changed from 08/27 study showing EF 50-55% and no regional WM abn. Last stress in 12/2018 with normal perfusion imaging. Coronary calcification on CT; repeat ischemic eval per primary cards. Patient prefers to discuss with Dr. Paredes after DC. ?? Mechanical AVR Continue warfarin, INR goal is 2.5-3.5 INR today is 3.3- pharmacy dosing ?? MR, moderate Acute combined CHF. CT chest with no sig effusions or PVC. Oral lasix dosing. Weight and I/O inaccurate. Cont low dose BB; hold off on ACEI/ARB with hyperkalemia. A. fib Vent rate controlled on BB dosing. Warfarin per pharm Dr. Paredes had previously stopped low dose amiodarone Anemia Low, stable. Per others. Remains on warfarin dosing Abn CT Concern for neoplasm with non-urgent f/u imaging recommended Right MCA sacular aneurysm Appears stable from previous imaging per radiology read Plan: Cont oral diuresis Hold ACEI or ARB with hyperkalemia; would start if labs stable Outpatient ischemic eval per primary cards Review of Systems Constitutional: Negative for malaise/fatigue. Respiratory: Negative for cough and shortness of breath. Cardiovascular: Negative for chest pain, palpitations and leg swelling. Gastrointestinal: Negative for abdominal pain and nausea. Musculoskeletal: Negative for myalgias. Neurological: Negative for dizziness. Objective: Scheduled Medications: ??? ceFOXItin 1 g Intravenous Q6H ??? furosemide 20 mg Oral Daily ??? gabapentin 300 mg Oral BID ??? lidocaine 1 patch Transdermal Q24H ??? methIMAzole 5 mg Oral Daily ??? metoprolol tartrate 12.5 mg Oral BID ??? morphine 1 mg Intravenous Once ??? pantoprazole EC 20 mg Oral Daily ??? rosuvastatin 5 mg Oral Nightly at bedtime ??? senna-docusate 1 tablet Oral Nightly at bedtime ??? venlafaxine XR 150 mg Oral Daily with breakfast ??? warfarin (COUMADIN) pharmacy to dose Oral See Admin Instructions ??? warfarin 3 mg Oral Once acetaminophen, albuterol sulfate HFA, ALPRAZolam, calcium carbonate, dextrose 10 % bolus, glucagon,glucose, HYDROcodone-acetaminophen, ootojuuup-oaicaseb-yqkqbcdmdjf, naLOXone, ondansetron, polyethylene glycol Vitals: Filed Vitals: 08205110/28/218 10/29/21 0215 10/29/21 0735 BP: 121/68 105/89 (!) 145/77 131/56 Pulse: 105 81 109 104 Resp: Temp: 97.7 ??F (36.5 ??C) 98.8 ??F (37.1 ??C) 98.4 ??F (36.9 ??C) 98.2 ??F (36.8 ??C) TempSrc: Oral Oral Oral SpO2: 100% 100% 99% Weight: 87.1 kg (192 lb) Height: I/O: Intake/Output Summary (Last 24 hours) at 10/29/2021 1043 Last data filed at 10/28/20211999 Gross per 24 hour Intake 480 ml Output -- Net 480 ml Last 3 Recorded Weights 10/25/21 0410 10/26/21 0445 10/29/21 0215 Weight: 85.5 kg (188 lb 7.9 oz) 85.7 kg (188 lb 15 oz) 87.1 kg (192 lb) Physical Exam: Physical Exam Vitals reviewed. Constitutional: General: She is not in acute distress. Appearance: She is well-developed. HENT: Head: Normocephalic and atraumatic. Nose: No mucosal edema. Neck: Vascular: No JVD. Cardiovascular: Rate and Rhythm: Normal rate. Rhythm irregular. No extrasystoles are present. Heart sounds: S1 normal and S2 normal. Murmur heard. Pulmonary: Effort: Pulmonary effort is normal. No respiratory distress. Breath sounds: Normal breath sounds. No rales. Abdominal: General: Bowel sounds are normal. Palpations: Abdomen is soft. Tenderness: There is no abdominal tenderness. Musculoskeletal: General: Swelling present. Cervical back: Neck supple. Skin: General: Skin is warm and dry. Coloration: Skin is pale. Neurological: Mental Status: She is alert and oriented to person, place, and time. Psychiatric: Behavior: Behavior normal. Thought Content: Thought content normal. Lab/Radiology/Diagnostic Review: Recent Labs Lab 10/27/21 0737 10/28/21 0805 10/28/21 19210/29/21 0704 WBC 5.0 4.5 -- 4.7 RBC 2.60* 2.49* -- 2.63* HGB 8.1* 7.6* -- 8.2* HCT 27.3* 26.2* -- 28.3* NA 140 143 141 144 K 5.1 5.4* 5.2* 5.2* CL 113* 115* 113* 115* CO2 24.6 26.1 26.9 25.8 AGAP 2.4* 1.9* 1.1* 3.2* BUN 25* 20* 19* 17 CR 0.97 1.12* 1.10* 0.93 BUNCREATININ 25.8 17.9 17.3 18.4 GLU 94 90 136* 95 CA 9.6 9.6 9.6 10.1 TP 6.2* 5.4* 5.6* 5.8* ALB 2.5* 2.2* 2.3* 2.5* TBIL 0.3 0.3 0.3 0.4 ALKP 92 83 86 86 AST 28 25 22 25 ALT 25 22 23 25 Recent Labs Lab 10/22/21 1817 10/24/21 1353 10/24/21 1646 TROP 61* 35 32 Recent Labs Lab 10/27/21 0737 10/28/21 0805 10/29/21 0704 INR 4.3 3.4 3.3 No results for input(s): CHOL, TRI, HDL, LDL in the last 168 hours. Tele: AF with stable vent rates I spent 30 minutes today reviewing the patient's medical record, obtaining history, performing an exam, ordering medications, tests, and/or procedures, documenting in the medical record, referring and/or communicating with other health care providers, counseling, and educating the patient/family/caregiver,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 ++++++++++++++++++++++++++++++++++++ Right leg: There are NO apparent, deep or superficial vein, ACUTE character venous filling defects visualized in the femoral, popliteal, deep calf or proximal saphenous veins. Resting venous flow is normal phasic proximally. No valve reflux with compression maneuvers is detected in the femoral and popliteal veins. Left leg LIMITED: Resting venous flow isnormal phasic at the common femoral. No valve reflux with compression maneuvers is detected in the common femoral vein. CONCLUSION: Normal study right lower extremity, with no evidence of acute deep or superficial vein thrombosis. There is no significant reflux detected. ++++++++++++++++++++++++++++++++++++ FINDINGS: ++++++++++++++++++++++++++++++++++++ Signed 10/21/2021 12:57 PM José Kaiser M.D. XR CHEST PA+LAT Result Date: 10/19/2021 Examination: Chest x-ray 2 view Exam Date/Time: 10/19/2021 7:00 AM Reason For Exam: chf Comparison: 10/15/2021 chest radiograph Technique: PA and lateral views of the chest were obtained. Findings: Heart size prominent but stable from prior study. Post sternotomy changes again seen including fractured wires. Atherosclerotic aorta. Increased AP dimensional airspace and flattening of diaphragms. Pulmonary vascularity stable from prior study. Interval worsening of opacities at the lung bases more so on the left obscuring diaphragm shadow on frontal view. Upper lungs clear. ======== IMPRESSION: ======== 1. Developing opacity at the anterior left lung base may be infiltrate or atelectasis. Stable interval appearance of the chest otherwise. Referred By: Interpreted By: Quoc Wilkinson MD, 10/19/2021 7:10 AM XR CHEST PORTABLE Result Date: 10/22/2021 Exam: Chest x-ray Comparison 10/19/2021 INDICATION: Recent hospital discharge for pneumonia. Dyspnea. TECHNIQUE: One view FINDINGS: The heart is enlarged. Median sternotomy and valve replacement. Central pulmonary vessels are partially obscured but are within normal limits for size. The right lung is clear. Indistinctness of the left lung base and hemidiaphragm. Uncertain significance with portable technique and superimposed soft tissues. There could be a component of lung opacification or smallpleural effusion present. No substantial change from the prior exam allowing for differences in patient positioning. The remainder of the left lung is clear. IMPRESSION: 1. Enlarged heart. 2. Artifact versus some mild increased density in the left lung base. Referred By: Interpreted By: Neel Basurto MD, 10/22/2021 6:20 PM XR CHEST PORTABLE Result Date: 10/15/2021 Examination: Chest 1 view portable History: Chest pain DATE/TIME: 10/15/2021 1:17 PM Comparison: NoneTechnique: AP upright portable view of the chest was obtained. Findings: Sternotomy. Heart size andmediastinal contours are normal. Borderline pulmonary vasculature. No pulmonary consolidation, pleural effusion or pneumothorax. No acute osseous abnormality. Old left clavicle fracture. Impression: 1. No acute infiltrate. 2. Borderline vascular congestion. Referred By: Interpreted By: Estevan Martines MD, 10/15/2021 1:33 PM USE ECHOCARDIOGRAM W CON Result Date: 10/16/2021 Echocardiography Report Pat.Name: ANA MARIA BOBO Pat.ID: [id number] St.Date: 10/16/2021 Exam Time: 3:01:00 PM Study Type:ECHO WITH CARDIAC DOPPLER COMP Height: 64in Weight: 183.62lb BSA: 1.89 m2 Age: 3 1945,76Y Sex: FEMALE BP: 115/57 HR: 91 bpm Sonogrphr: Becky Martel [facility] Pat. Stat. :Inpatient Room: [facility] Reason for Study: Aortic valve replacement, Congestive heart failure, Dyspnea on exertion, Murmur History / Clinical: Chest pain. Calf injury, redness, edema. PMH, cad, dm, htn, ckd, hld, copd Procedures: 2D, M- mode, Doppler, Color Flow, Definity was used to enhance endocardial definition., The study quality is technically difficult. Race: W ++++++++++++++++++++++++++++++++++++ SUMMARY: ++++++++++++++++++++++++++++++++++++ The left ventricular size is normal. Estimated left ventricular ejection fraction is 40-45%. Moderate concentric left ventricular hypertrophy. Left ventricular diastolic function is abnormal (grade 2 - pseudonormal pattern). ?Moderate global hypokinesis is noted. The right ventricular size is normal. Right ventricular systolic function is moderately depressed. A mechanical valve is in the aortic position with post-deployment peak velocity of 3.53m/sec, mean gradient of 31mmHg and a calculated YADIRA of 1.10cm2. Right ventricular systolic pressure is 40-50 mmHg suggestive of mild to moderate pulmonary hypertension. Mild to moderate tricuspid regurgitation. Moderate mitral regurgitation. ++++++++++++++++++++++++++++++++++++ FINDINGS: ++++++++++++++++++++++++++++++++++++ LV: The left ventricular size is normal. Estimated left ventricular ejection fraction is 40-45%. Moderate concentric left ventricular hypertrophy. Left ventricular diastolic function is abnormal (grade 2 - pseudonormal pattern). WM: Moderate global hypokinesis is noted.RV: The right ventricular size is normal. Right ventricular systolic function is moderately depressed. IVS: No evidence of ventricular septal defect. LA: The left atrial size is mildly enlarged. The left atrial volume is mildly increased (34- 41ml/M2). RA: Right atrial size is mildly enlarged. IAS:Atrial septum appears intact. DENICE: No evidence of pericardial effusion. AO: Normal aortic root. PA: Estimated right atrial pressure of 15 mmHg. SVn: Inferior vena cava is mildly enlarged. Inferior vena cava shows <50% collapse with respiration consistent with elevated right atrial pressure. AV:Mechanical prosthetic aortic valve seen. A trace of denice-prosthetic aortic valve regurgitation. A mechanical valve is in the aortic position with post-deployment peak velocity of 3.53m/sec, mean gradient of 31mmHg and a calculated YADIRA of 1.10cm2. MV: Moderate mitral regurgitation. No evidence of mitral stenosis. PV: No evidence of pulmonic valve stenosis. Mild pulmonic regurgitation. TV: Mild to moderate tricuspid regurgitation. Right ventricular systolic pressure is 40-50 mmHg suggestive of mild to moderate pulmonary hypertension. No evidence of tricuspid valve stenosis. ++++++++++++++++++++++++++++++++++++ MEASUREMENTS: ++++++++++++++++++++++++++++++++++++ DOPPLER LVOT LVOTpkPG 8 mmHg LVOTmnPG 4 mmHg LVOTpkVel 141 cm/s (70-110)+* LVOT SV 83 ml LVOT TVI 26.3 cm Right Atrium RA Press 15mmHg Ayala's Disk 20 AV Forward Flow AV TVI 51.2 cm AV pkPG 37 mmHg AV pkVel 305 cm/s (100-170)+*Area (TVI) 1.61 cm2 (3-5)* AV mnPG 21 mmHg Area (Randall) 1.45 cm2 (3-5)* AV Regurg Flow AV pkVel 381 cm/s AV P1/2t 290 ms AV pkPG 58 mmHg MV Forward Flow MV DeTm 257 ms MV pkPG 9 mmHg MV mnPG 3 mmHg MVpkE 134 cm/s (60-130)+* PV Forward Flow PV pkVel 96.4 cm/s (60-90)* PV AC 109 ms PV pkPG 4 mmHg TV Regurg Flow TV pkPG 26 mmHg TV pkVel 253 cm/s (30-70)+* Right Ventricle RVsys P 41 mmHg Right Ventricle 5.32 cm/s Lat E' Lat e 7.2 cm/s Lat E/E' Lat E/e 18.6 Med E' Med e 4.94 cm/s Med E/E' Med E/e 27.1 Aortic Valve Aortic Valve Ar 0.85 Aortic Valve Ve 0.46 PV Antegrade Flow Acceleration Sl 573 cm/s2 TAPSE Distance 8 mm 2D Left Ventricle LVIDd 4.8 cm (3.6-5.2)+ LV ESV 52.6 ml LVIDs 3.63 cm (2.3-3.9)+ LV ESV 46.2 ml LngAxd 7.03 cm LVESV BP 50.5 ml LngAxd 7.4 cm LV EF 36.1 % LV EDV 82.2 ml LV EF42.7 % LV EDV 80.4 ml LV EF BP 38.7 % LVEDV BP 82.4 ml LV SV 29.6 ml LngAxs 6.96 cm LV SV 34.4 ml LngAxs 7.36 cm LV SV BP 31.9 ml LVPW LVPWd 1.36 cm Ventricular Septum IVSd 1.32 cm Left Atrium LA VOLBP 72.9 ml Aorta Ao Rtd 2.4 cm LVOT LVOT 2 cm LVOTArea 3.14 cm2 Ratios IVS LA Biplane LAVol I BP 38.6 ml/m2 RA Single Plane Right Atrium MO 13.4 mm Right Atrium Sy 51.1 ml Right Atrium Sy 64.4 mm Right Atrium Sy 27 ml/m2 Right Atrium Sy 20 cm2 Right Ventricle Right Ventricle 27 mm Right Ventricle 32. 8 mm [facility] [place] [facility] 77.7 mm Signed 10/16/2021 06:42 PM Tere Cedillo M.D. EKG: Results for orders placed or performed during the hospital encounter of 10/22/21 ECG 12 lead Narrative [facility] [address] [place] [address] Test Date: 2021-10-22 Pat Name: ANA MARIA BOBO Department: 41 Room: B443 Gender: Female Credit Report Checker: : 1945 Requested By: SANJANA BATES Order Number: [id number] Reading MD: Sanjana Ludwig Measurements Intervals [place] Rate: 86 P: MS: 0 QRS: -37 QRSD: 160 T: 98 QT: 411 QTc: 494 Interpretive Statements ATRIAL FIBRILLATION LEFT AXIS DEVIATION [QRS AXIS < -30] LEFT BUNDLE BRANCH BLOCK [120+ ms QRS DURATION, 80+ ms Q/S IN V1/V2, 85+ ms R IN I/aVL/V5/V6] Compared to ECG 10/15/2021 17:09:13 Left-axis deviation now present ECG 12 lead Narrative [facility] [address] [place] [address] Test Date: 2021-10-28 Pat Name: ANA MARIA BOBO Department: 40 Room: [id number] Gender: Female Credit Report Checker: : 1945 Requested By: ASHU DENG Order Number: [id number] Reading MD: Measurements Intervals [place] Rate: 94 P: MS: 0 QRS: -39 QRSD: 159 T: 89 QT: 365 QTc: 458 Interpretive Statements ATRIAL FIBRILLATION MARKED LEFT AXIS DEVIATION [QRS AXIS < -30] LEFT BUNDLE BRANCH BLOCK [120+ ms QRS DURATION, 80+ ms Q/S IN V1/V2, 85+ ms R IN I/aVL/V5/V6] Compared to ECG 10/22/2021 18:11:32 No significant changes Assessment & Plan Acute diverticulitis F/u CT abd/pelvis revealed acute diverticulitis Start cefoxitin IV, continue Will consult GI if pain does not improve Cannot start IVF at this time d/t heart failure Hypotension: Suspect over diuresis and poor oral intake following discharge as contributing factors. Patient status post 2 L normal saline given in the emergency room. We will hold on further IV fluid resuscitation at this time. Holding outpatient oral antihypertensive medications and diuretics. F/u BMP Monitor VS and pulse ox Fall precautions 10/25 resume lasix and BB tomorrow AM per cardiology if BP stable 10/26 remains hypotensive today; lasix resumed, then held per cardiology; BB on hold NSTEMI Cardiology consulted Trend trop F/u outpatient with Dr. Paredes for ischemic eval once stable Start ASA 81 mg per cardiology Telemetry 10/25 resume lasix in AM tomorrow with BB per cardiology if BP stable 10/26 lasix resumed, BP will not tolerate resuming BB today ??10/26 c/w lasix PO Acute on chronic renal Failure: suspect seconday to hypotension possible diuresis and continued administration of nephrotoxic medications and reduced oral intake. Medications reviewed will hold nephrotoxic medications. UA pending. status post 2 L normal saline to achieve and maintain euvolemia. Given history of heart failure monitor volume status closely avoid hypotension. Renally dose medications. Consider nephrology consult if not improved with correction of precipitating factors. F/u BMP -had held diuresis, Monitor Cr , No further IV fluids at this time 10/25 resume lasix in AM tomorrow per cardiology 10/26 will attempt to resume lasix again tomorrow if BP permits; BB remains on hold 10/28 c/w oral diuresis per cardiology Chronic heart failure reduced ejection fraction: Patient appears dry to euvolemic on exam currently holding outpatient antihypertensives and diuretic medications and nephrotoxic medications. C/w oral diuresis Continue cardiac medications as indicated. ?? CAP: Patient afebrile no leukocytosis we will continue current dose antibiotics pulmonary toilet pulm consulted F/u sputum culture Antibiotics discontinued per pulmonology ?? Acute hypoxic respiratory failure: Secondary to the above patient continues to be maintained on 2 L nasal cannula 1 L while sleeping patient also found to have respiratory acidosis started BiPAP, now dc'd f/u repeat ABG pulm consulted Improving Weaned to RA per pulm on 10/25 ?? A. fib currently rate controlled stroke risk reduction with Coumadin INR goal 2.5-3.5 for mechanical valve, pharmacy to dose. ?? Hyperlipidemia: Continue statin ?? Hypothyroidism continue methimazole follow-up PCP consider endocrinology referral. ?? GERD: Continue PPI Right MCA aneurysm Noted on CTA Also noted per radiology on prior imaging, though direct comparison not available Neurology consulted F/u MRI per enuro F/u EEG ?? - DVT prophylaxis: Coumadin - Diet/IVF: Cardiac - Code status: Full code - Disposition: Telemetry inpatient Plan of care discussed with patient, CM. ASHU DENG MD * Oneil Michelle RN - 10/28/2021 10:14 AM CDT Spoke with patient at bedside regarding PT recommendations of Swing bed, home PT. Patient states she prefers to discharge with home health. Confirmed with patient that she remains agreeable to [facility] at discharge. * Milad HollisD, [facility] - 10/28/2021 10:13 AM CDT Warfarin Pharmacy to Dose Day #5 Ordering Provider: Dr. Bell Indication: Afib, Mechanical AVR Goal INR: 2.5-3.5 Home Dose: 5 mg daily Date Dose INR H/H/PLT 10/22 held 3.7 9.2/31.1/178 10/23 held 3.7 8.1/27.3/155 10/24 4 mg 3.1 8.1/26.9/152 10/25 5 mg 2.6 7.9/26.4/151 10/26 4 mg 3.2 7.7/25.8/147 10/27 held 4.3 8.1/27.3/166 10/28 3.4 7.6/26.1/162 Diet: Cardiac, low cholesterol (25% intake charted on 10/26) Interacting Medications: - cefoxitin (started 10/27) - Azithromycin (10/24-10/26) - Cefdinir (home med, stopped 10/26) - methimazole (home med) A/P: Pt on home warfarin of 5 mg daily for Afib and mechanical AVR and is admitted with hypotension. 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 Warfarin was held last night and the INR has decreased to 3.4 this morning. There is potential for it to continue to decrease. Will administer a 4mg warfarin dose as the patient remains on cefoxitin.Will continue to monitor daily INR's. * Jewels Nevarez RN - 10/28/2021 12:40 AM CDT Problem: Reduced risk for falls/injury Goal: Reduced Risk of Confusion (Acute vs [...] and interventions as needed. Outcome: Progressing Problem: Mobility Goal: STG - Pt will ambulate Outcome: Progressing Goal: STG - Pt will ascend/descend stairs Outcome: Progressing * Yoko Desouza PharmD - 10/27/2021 11:36 AM CDT Warfarin Pharmacy to Dose Day #5 Ordering Provider: Dr. Bell Indication: Afib, Mechanical AVR Goal INR: 2.5-3.5 Home Dose: 5 mg daily Date Dose INR H/H/PLT 10/22 held 3.7 9.2/31.1/178 10/23 held 3.7 8.1/27.3/155 10/24 4 mg 3.1 8.1/26.9/152 10/25 5 mg 2.6 7.9/26.4/151 10/26 4 mg 3.2 7.7/25.8/147 10/27 4.3 8.1/27.3/166 Diet: Cardiac, low cholesterol (25% intake charted on 10/26) Interacting Medications: - cefoxitin (started 10/27) - Azithromycin (10/24-10/26) - Cefdinir (home med, stopped 10/26) - methimazole (home med) A/P: Pt on home warfarin of 5 mg daily for Afib and mechanical AVR and is admitted with hypotension. 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 INR is supratherapeutic at 4.3. Will hold warfarin today considering significant increase in INR overnight, interacting Abx, and limited PO intake. Daily INRs ordered. Pharmacy will continue to follow and dose as appropriate. Thank you for the consult. * HAWK Macdonald - 10/27/2021 11:30 AM CDT Cardiology daily progress note Primary Rotor Casting Machine Setup Operator: Dr. Cedillo, follows at [facility] with Dr. Paredes. Dr. Bolden covering Ana Maria Bobo is a 76-year-old female patient with past medical history significant for atrial flutter, A-fib anticoagulated with warfarin, mechanical St. Lj aortic valve (on warfarin), hypertension, obstructive sleep apnea compliant with CPAP. CAD, diabetes mellitus, HTN, HLD who presentedfor weakness. Of note, patient was admitted last week for CHF. She was diuresed and DC home. Since returning home, she has increased weakness. Noted to have OLIVE on CKD, found to be profoundly hypotensive. She was found to PNA, started on bipap for respiratory acidosis. Subjective: Patient is laying in bed. She reports she feels a little better today. She denies chestpain or dyspnea. Assessment and Plan: NSTEMI Mildly elevated troponin which then normalized. She has self limiting CP but also has possible PNA and cough. Echo done last admit showed EF was 40-45%, global hypokinesis. Consider repeat ischemic eval once other issues resolved. Mechanical AVR Continue warfarin, INR goal is 2.5-3.5 INR today is 4.3 - pharmacy dosing A. fib stroke risk reduction with Coumadin INR pending pharmacy to dose. Dr. Paredes had previously stopped low dose amiodarone metoprolol tartrate 12.5 mg BID Tele: AF Heart rate 80-90 bpm improved PLAN Continue lasix 20mg daily Follow creatinine closely Patient heart rate improved on low dose metoprolol 12.5 mg BID, change to metoprolol er 25 mg dailytomorrow Patient to follow up with primary cards regarding ischemic eval, follows closely with Dr. 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 Paredes, last seen on 09/12/21.?? History of failed cardioversion in 2019, previously on sotalol and was placed on amiodarone. Amio was recently discontinued. Underwent LHC in 2002 with minimal luminal irregularities. Prior lexiscan in 2019 with old anterior VA. Echo done 10/16/21 showed The left ventricular size is normal. Estimated left ventricular ejection fraction is 40-45%. Moderate concentric left ventricular hypertrophy. Left ventricular diastolic function is abnormal (grade 2 - pseudonormal pattern).Moderate global hypokinesis is noted. Right ventricular systolic function is moderately depressed. A mechanical valve is in the aortic position with post-deployment peak velocity of 3.53m/sec, mean gradient of 31mmHg and a calculated YADIRA of 1.10cm2. Right ventricular systolic pressure is 40-50 mmHg suggestive of mild to moderate pulmonary hypertension. Mild to moderate tricuspid regurgitation. Moderate mitral regurgitation. Past Medical History: Diagnosis Date ??? 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 Anxiety ??? Atrial flutter (CMS/HCC) ??? Cataract ??? Chronic anticoagulation due to mechanical heart valve ??? Chronic pain ??? Diabetes mellitus (CMS/HCC) ??? H/O mechanical aortic valve replacement 2003 ??? Hypertension Past Surgical History: Procedure Laterality Date ??? REPAIR HEART WOUND Social History Tobacco Use ??? Smoking status: Never Smoker ??? Smokeless tobacco: Never Used ??? Tobacco comment: non smoker Vaping Use ??? Vaping Use: Never used Substance Use Topics ??? Alcohol use: Not Currently ??? Drug use: Yes Types: Hydrocodone Comment: chronic pain Family History Problem Relation Name Age of Onset ??? Heart Father ??? Diabetes Father ??? Heart Mother ??? ceFOXItin 1 g Intravenous Q6H ??? furosemide 20 mg Oral Daily ??? gabapentin 300 mg Oral BID ??? lidocaine 1 patch Transdermal Q24H ??? methIMAzole 5 mg Oral Daily ??? metoprolol tartrate 12.5 mg Oral BID ??? morphine 1 mg Intravenous Once ??? pantoprazole EC 20 mg Oral Daily ??? rosuvastatin 5 mg Oral Nightly at bedtime ??? senna-docusate 1 tablet Oral Nightly at bedtime ??? venlafaxine XR 150 mg Oral Daily with breakfast ??? warfarin (COUMADIN) pharmacy to dose Oral See Admin Instructions acetaminophen, albuterol sulfate HFA, ALPRAZolam, dextrose 10 % bolus, glucagon, glucose, HYDROcodone-acetaminophen, tbtxqyffh-vynszeim-iibprkybjut, naLOXone, ondansetron, polyethylene glycol Prior to Admission medications Medication Sig Start Date End Date Taking? Authorizing Provider Cholecalciferol (VITAMIN D3) 25 MCG (1000 UT) Cap Take 1,000 Units by mouth daily. Yes Doc Abstract FEROSUL 325 (65 Fe) MG tablet Take 1 tablet by mouth once daily Patient taking differently: Take 325 mg by mouth daily with breakfast. 10/07/21 Yes Suleman Webster DO fluticasone propionate 50 MCG/ACT nasal spray 2 sprays by Nasal route daily. Yes Doc Abstract furosemide (LASIX) 40 MG tablet Take 1 tablet (40 mg total) by mouth daily for 30 days. 10/22/21 11/21/21 Yes Jonathan Gaytan MD gabapentin 300 MG capsule Take 1 capsule (300 mg total) by mouth 2 (two) times daily. 07/16/20 Yes Juan Pablo Dominguez MD LISINOPRIL 40 MG tablet Take 1 tablet by mouth once daily Patient taking differently: Take 40 mg by mouth daily. 03/11/21 Yes Suleman Webster DO methIMAzole 5 MG tablet Take 1 tablet (5 mg total) by mouth daily. 08/30/21 Yes Panda Moreno MD metoprolol succinate ER 25 MG 24 hr tablet Take 1 tablet (25 mg total) by mouth daily. 09/02/21 Yes Suleman Webster DO omeprazole (PRILOSEC) 20 MG capsule Take 1 capsule by mouth once daily 10/07/21 Yes Suleman Webster DO rosuvastatin 5 MG tablet Take 1 tablet (5 mg total) by mouth nightly at bedtime. 08/14/21 Yes Jonathan Webster DO VENLAFAXINE XR 150 MG 24 hr capsule Take 1 capsule by mouth once daily Patient taking differently: Take 150 mg by mouth daily. 06/17/21 Yes Suleman Webster DO warfarin (COUMADIN) 5 MG tablet Take 5 mg by mouth daily. Yes Doc Nikolai acetaminophen (TYLENOL) 500 MG tablet Take 500 mg by mouth daily as needed. 08/17/20 Doc Abstract albuterol sulfate HFA 108 (90 Base) MCG/ACT inhaler Inhale 2 puffs into the lungs every 6 (six) hours as needed for Wheezing. 10/10/21 Suleman Webster DO ALPRAZolam (XANAX) 0.25 MG tablet Take 1 tablet (0.25 mg total) by mouth 2 (two) times daily as needed for Anxiety. 10/10/21 Suleman Webster DO HYDROcodone-acetaminophen (NORCO) 10-325 MG tablet Take 1 tablet by mouth every 6 (six) hours as needed for Pain. Indications: Chronic Pain Do not take with alprazolam. No further refills until seen in office. 09/26/21 Suleman Webster, DO lidocaine 5 % Apply pain patch to affected area. Change after 12 hours. 08/30/20 Trina Hoffman NP Allergies Allergen Reactions ??? Atorvastatin Leg Pain Leg pain/cramps. Resolved after stopping. ??? Tape Contact Dermatitis ??? Bacitracin Other (see comment) ??? Benzalkonium Other (see comment) ??? Gramicidin Other (see comment) ??? Hydrocortisone Other (see comment) ??? Neomycin Other (see comment) ??? Polymyxin B Other (see comment) Review of Systems Constitutional: Positive for malaise/fatigue. Negative for chills, diaphoresis, fever and weight loss. HENT: Negative for hearing loss. Eyes: Negative for blurred vision and double vision. Respiratory: Negative for cough, shortness of breath and wheezing. Cardiovascular: Negative for chest pain, palpitations, orthopnea, claudication, leg swelling and PND. Gastrointestinal: Negative for blood in stool, diarrhea, heartburn and nausea. Genitourinary: Negative for dysuria and hematuria. Musculoskeletal: Negative for falls, joint pain and myalgias. Skin: Negative for rash. Neurological: Negative for dizziness, tingling, focal weakness, weakness and headaches. Endo/Heme/Allergies: Does not bruise/bleed easily. Psychiatric/Behavioral: Negative for depression and memory loss. Filed Vitals: 10/26/21 1956 10/26/21 2304 10/27/21 0435 10/27/21 0714 BP: 121/57 111/59 126/70 119/61 Pulse: 86 103 96 91 Resp: 20 20 16 Temp: 98.1 ??F (36.7 ??C) 97.9 ??F (36.6 ??C) 98.2 ??F (36.8 ??C) TempSrc: Oral Oral Oral SpO2: 100% 99% 97% 100% Weight: Height: Physical Exam: Physical Exam Vitals and nursing note reviewed. Constitutional: Appearance: She is well-developed. She is not ill-appearing. Eyes: Pupils: Pupils are equal, round, and reactive to light. Neck: Vascular: No JVD. Cardiovascular: Rate and Rhythm: Tachycardia present. Rhythm irregular. Heart sounds: Normal heart sounds. No murmur heard. Pulmonary: Effort: Pulmonary effort is normal. Breath sounds: No wheezing. Abdominal: General: Bowel sounds are normal. There is no distension. Palpations: Abdomen is soft. Tenderness: There is no abdominal tenderness. Musculoskeletal: General: Normal range of motion. Skin: General: Skin is warm and dry. Neurological: Mental Status: She is alert and oriented to person, place, and time. Recent Labs Lab 10/25/21 0550 10/26/21 0415 10/27/21 0737 WBC 4.6 4.4* 5.0 RBC 2.49* 2.47* 2.60* HGB 7.9* 7.7* 8.1* HCT 26.4* 25.8* 27.3* MCV 106.0* 104.5* 105.0* MCH 31.7* 31.2* 31.2* MCHC 29.9* 29.8* 29.7* PLT 151 147 166 RDW 12.3 12.2 12.2 MPV 13.5* 13.4* 13.3* PERNEU 50.5 51.5 57.8 PERLYM 22.5 21.4 20.0 PERMON 21.9 20.8 16.6 LYMC 1.03 0.95* 1.00 MONOC 1.00* 0.92* 0.83 EOSC 0.19 0.24 0.22 BASOC 0.03 0.03 0.05 DTYPE AUTOMATED DIFFERENTIAL AUTOMATED DIFFERENTIAL AUTOMATED DIFFERENTIAL Recent Labs Lab 10/25/21 0550 10/26/21 0415 10/27/21 0737 NA 139 143 140 K 5.0 5.2* 5.1 CL 112* 116* 113* CO2 25.8 26.1 24.6 AGAP 1.2* 0.9* 2.4* BUN 48* 33* 25* CR 1.26* 0.95 0.97 BUNCREATININ 38.1* 34.7* 25.8 GLU 73 87 94 CA 8.7 9.0 9.6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 referral. ?? GERD: Continue PPI Right MCA aneurysm Noted on CTA Also noted per radiology on prior imaging, though direct comparison not available Neurology consulted F/u MRI per enuro F/u EEG ?? - DVT prophylaxis: Coumadin - Diet/IVF: Cardiac - Code status: Full code - Disposition: Telemetry inpatient Plan of care discussed with patient, cardiology, pharmacy. ASHU DENG MD * Germania Hoover RN - 10/27/2021 12:04 AM CDT Problem: Reduced risk for falls/injury Goal: Reduced Risk for Falls/Injury Outcome: Progressing Goal: Reduced Risk of Confusion (Acute vs Chronic) Outcome: Progressing Problem: Pain Goal: Patient's pain/discomfort [...] to cope with his/her illness. 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 Cedillo, follows at [facility] with Dr. Paredes. Dr. Bolden covering Ana Maria Bobo is a 76-year-old female patient with past medical history significant for atrial flutter, A-fib anticoagulated with warfarin, mechanical [facility]. Lj aortic valve (on warfarin), hypertension, obstructive sleep apnea compliant with CPAP. CAD, diabetes mellitus, HTN, HLD who presentedfor weakness. Of note, patient was admitted last week for CHF. She was diuresed and DC home. Since returning home, she has increased weakness. Noted to have OLIVE on CKD, found to be profoundly hypotensive. She was found to PNA, started on bipap for respiratory acidosis. Subjective: Resting in bed. No acute events overnight. On 2L. No new complaints, a little better today. Assessment and Plan: NSTEMI Mildly elevated troponin which then normalized. She has self limiting CP but also has possible PNA and cough. Echo done last admit showed EF was 40-45%, global hypokinesis. Consider repeat ischemic eval once other issues resolved. Mechanical AVR Continue warfarin, INR goal is 2.5-3.5 INR today is 3.2 Hypotension In the setting of over diuresis and poor oral intake following discharge as contributing Improved today, Creatinine improved to 0.95 today Continue oral lasix 20mg daily. Blood cultures negative. No fevers. No significant leukocytosis. ?? OLIVE on CKD?? Received 2L IVF. Hold further fluids for now. consider renal consult if worsening. Hold nephrotoxicmeds. Hold lasix. ?? HFrEF, not in exacerbation Patient appears dry to euvolemic on exam currently holding outpatient antihypertensives and diuretic medications and nephrotoxic medications. ??Resume as indicated. Resume lasix 20mg daily tomorrow and monitor creatine Resume metoprolol tartrate 12.5 mg BID ?? PNA/UTI Per others. resp sputum culture pending apprecicate pulm recs, on ABX ?? Acute hypoxic respiratory failure: PH improved to 7.33. co2 normalized. On 2L oxygen. On abx pulm following Slowly improving A. fib stroke risk reduction with Coumadin INR pending pharmacy to dose. Dr. Paredes had previously stopped low dose amiodarone Restart low dose BB metoprolol tartrate 12.5 mg BID Tele: AF 100-120 PLAN Resume lasix 20mg daily starting tomorrow Follow creatinine closely Resume metoprolol tomorrow if BP stable Patient to follow up with primary cards regarding ischemic eval, follows closely with Dr. 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 Paredes, last seen on 09/12/21.?? History of failed cardioversion in 2019, previously on sotalol and was placed on amiodarone. Amio was recently discontinued. Underwent LHC in 2002 with minimal luminal irregularities. Prior lexiscan in 2019 with old anterior VA. Echo done 10/16/21 showed The left ventricular size is normal. Estimated left ventricular ejection fraction is 40-45%. Moderate concentric left ventricular hypertrophy. Left ventricular diastolic function is abnormal (grade 2 - pseudonormal pattern).Moderate global hypokinesis is noted. Right ventricular systolic function is moderately depressed. A mechanical valve is in the aortic position with post-deployment peak velocity of 3.53m/sec, mean gradient of 31mmHg and a calculated YADIRA of 1.10cm2. Right ventricular systolic pressure is 40-50 mmHg suggestive of mild to moderate pulmonary hypertension. Mild to moderate tricuspid regurgitation. Moderate mitral regurgitation. Past Medical History: Diagnosis Date ??? 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 Anxiety ??? Atrial flutter (CMS/HCC) ??? Cataract ??? Chronic anticoagulation due to mechanical heart valve ??? Chronic pain ??? Diabetes mellitus (CMS/HCC) ??? H/O mechanical aortic valve replacement 2003 ??? Hypertension Past Surgical History: Procedure Laterality Date ??? REPAIR HEART WOUND Social History Tobacco Use ??? Smoking status: Never Smoker ??? Smokeless tobacco: Never Used ??? Tobacco comment: non smoker Vaping Use ??? Vaping Use: Never used Substance Use Topics ??? Alcohol use: Not Currently ??? Drug use: Yes Types: Hydrocodone Comment: chronic pain Family History Problem Relation Name Age of Onset ??? Heart Father ??? Diabetes Father ??? Heart Mother ??? furosemide 20 mg Oral Daily ??? gabapentin 300 mg Oral BID ??? lidocaine 1 patch Transdermal Q24H ??? methIMAzole 5 mg Oral Daily ??? pantoprazole EC 20 mg Oral Daily ??? rosuvastatin 5 mg Oral Nightly at bedtime ??? senna-docusate 1 tablet Oral Nightly at bedtime ??? venlafaxine XR 150 mg Oral Daily with breakfast ??? warfarin (COUMADIN) pharmacy to dose Oral See Admin Instructions ??? warfarin 4 mg Oral Once acetaminophen, albuterol sulfate HFA, ALPRAZolam, dextrose 10 % bolus, glucagon, glucose, HYDROcodone-acetaminophen, [id number]-[id number]-imnlznumkgh, naLOXone, ondansetron, polyethylene glycol Prior to Admission medications Medication Sig Start Date End Date Taking? Authorizing Provider cefdinir (OMNICEF) 300 MG Cap capsule Take 1 capsule (300 mg total) by mouth 2 (two) times daily for 4 days. 10/22/21 10/26/21 Yes Jonathan Gaytan MD Cholecalciferol (VITAMIN D3) 25 MCG (1000 UT) Cap Take 1,000 Units by mouth daily. Yes Doc Abstract FEROSUL 325 (65 Fe) MG tablet Take 1 tablet by mouth once daily Patient taking differently: Take 325 mg by mouth daily with breakfast. 10/07/21 Yes Suleman Webster DO fluticasone propionate 50 MCG/ACT nasal spray 2 sprays by Nasal route daily. Yes Doc Abstract furosemide (LASIX) 40 MG tablet Take 1 tablet (40 mg total) by mouth daily for 30 days. 10/22/21 11/21/21 Yes Jonathan Gaytan MD gabapentin 300 MG capsule Take 1 capsule (300 mg total) by mouth 2 (two) times daily. 07/16/20 Yes Juan Pablo Dominguez MD LISINOPRIL 40 MG tablet Take 1 tablet by mouth once daily Patient taking differently: Take 40 mg by mouth daily. 03/11/21 Yes Suleman Webster DO methIMAzole 5 MG tablet Take 1 tablet (5 mg total) by mouth daily. 08/30/21 Yes Panda Moreno MD metoprolol succinate ER 25 MG 24 hr tablet Take 1 tablet (25 mg total) by mouth daily. 09/02/21 Yes Suleman Webster DO omeprazole (PRILOSEC) 20 MG capsule Take 1 capsule by mouth once daily 10/07/21 Yes Suleman Webster DO rosuvastatin 5 MG tablet Take 1 tablet (5 mg total) by mouth nightly at bedtime. 08/14/21 Yes Jonathan Webster DO VENLAFAXINE XR 150 MG 24 hr capsule Take 1 capsule by mouth once daily Patient taking differently: Take 150 mg by mouth daily. 06/17/21 Yes Suleman Webster DO warfarin (COUMADIN) 5 MG tablet Take 5 mg by mouth daily. Yes Doc Abstract acetaminophen (TYLENOL) 500 MG tablet Take 500 mg by mouth daily as needed. 08/17/20 Doc Abstract albuterol sulfate HFA 108 (90 Base) MCG/ACT inhaler Inhale 2 puffs into the lungs every 6 (six) hours as needed for Wheezing. 10/10/21 Suleman Webster DO ALPRAZolam (XANAX) 0.25 MG tablet Take 1 tablet (0.25 mg total) by mouth 2 (two) times daily as needed for Anxiety. 10/10/21 Suleman Webster, DO HYDROcodone-acetaminophen (NORCO) 10-325 MG tablet Take 1 tablet by mouth every 6 (six) hours as needed for Pain. Indications: Chronic Pain Do not take with alprazolam. No further refills until seen in office. 09/26/21 Suleman Webster, DO lidocaine 5 % Apply pain patch to affected area. Change after 12 hours. 08/30/20 Trina Hoffman NP Allergies Allergen Reactions ??? Atorvastatin Leg Pain Leg pain/cramps. Resolved after stopping. ??? Tape Contact Dermatitis ??? Bacitracin Other (see comment) ??? Benzalkonium Other (see comment) ??? Gramicidin Other (see comment) ??? Hydrocortisone Other (see comment) ??? Neomycin Other (see comment) ??? Polymyxin B Other (see comment) Review of Systems Constitutional: Positive for malaise/fatigue. Negative for chills, diaphoresis, fever and weight loss. HENT: Negative for hearing loss. Eyes: Negative for blurred vision and double vision. Respiratory: Negative for cough, shortness of breath and wheezing. Cardiovascular: Negative for chest pain, palpitations, orthopnea, claudication, leg swelling and PND. Gastrointestinal: Negative for blood in stool, diarrhea, heartburn and nausea. Genitourinary: Negative for dysuria and hematuria. Musculoskeletal: Negative for falls, joint pain and myalgias. Skin: Negative for rash. Neurological: Negative for dizziness, tingling, focal weakness, weakness and headaches. Endo/Heme/Allergies: Does not bruise/bleed easily. Psychiatric/Behavioral: Negative for depression and memory loss. Filed Vitals: 10/26/21 0445 10/26/21 0726 10/26/21 1114 10/26/21 1504 BP: 108/49 104/79 94/56 114/58 Pulse: 92 112 111 105 Resp: 13 27 10 Temp: 98.4 ??F (36.9 ??C) 98.4 ??F (36.9 ??C) 98.8 ??F (37.1 ??C) TempSrc: Oral Oral Oral SpO2: 99% 100% 100% Weight: 85.7 kg (188 lb 15 oz) Height: Physical Exam: Physical Exam Vitals and nursing note reviewed. Constitutional: Appearance: She is well-developed. She is not ill-appearing. Eyes: Pupils: Pupils are equal, round, and reactive to light. Neck: Vascular: No JVD. Cardiovascular: Rate and Rhythm: Tachycardia present. Rhythm irregular. Heart sounds: Normal heart sounds. No murmur heard. Pulmonary: Effort: Pulmonary effort is normal. Breath sounds: No wheezing. Abdominal: General: Bowel sounds are normal. There is no distension. Palpations: Abdomen is soft. Tenderness: There is no abdominal tenderness. Musculoskeletal: General: Normal range of motion. Skin: General: Skin is warm and dry. Neurological: Mental Status: She is alert and oriented to person, place, and time. Recent Labs Lab 10/24/21 0351 10/25/21 0550 10/26/21 0415 WBC 6.0 4.6 4.4* RBC 2.58* 2.49* 2.47* HGB 8.1* 7.9* 7.7* HCT 26.9* 26.4* 25.8* MCV 104.3* 106.0* 104.5* MCH 31.4* 31.7* 31.2* MCHC 30.1* 29.9* 29.8* PLT 152 151 147 RDW 12.3 12.3 12.2 MPV 13.9* 13.5* 13.4* PERNEU 68.2 50.5 51.5 PERLYM 12.0 22.5 21.4 PERMON 17.1 21.9 20.8 LYMC 0.72* 1.03 0.95* MONOC 1.03* 1.00* 0.92* EOSC 0.11 0.19 0.24 BASOC 0.04 0.03 0.03 DTYPE AUTOMATED DIFFERENTIAL AUTOMATED DIFFERENTIAL AUTOMATED DIFFERENTIAL Recent Labs Lab 10/22/21 1817 10/22/21 2350 10/24/21 0351 10/25/21 0550 10/26/21 0415 NA 135* < > 137 139 143 K 5.3* < > 5.3* 5.0 5.2* CL 106 < > 111* 112* 116* CO2 25.6 < > 24.5 25.8 26.1 AGAP 3.4* < > 1.5* 1.2* 0.9* BUN 59* < > 60* 48* 33* CR 2.19* < > 1.89* 1.26* 0.95 BUNCREATININ 26.9* < > 31.7* 38.1* 34.7* GLU 79 < > 124* 73 87 CA 9.1 < > 8.7 8.7 9.0 TP 6.1* -- -- 5.4* 5.4* ALB 2.6* -- -- 2.4* 2.3* TBIL 0.3 -- -- 0.5 0.4 ALKP 85 -- -- 81 83 AST 26 -- -- 17 22 ALT 24 -- -- 17 18 < > = values in this interval not displayed. Recent Labs Lab 10/24/21 0351 10/25/21 0550 10/26/21 0415 INR 3.1 2.6 3.2 Recent Labs Lab 10/26/21 0415 NA 143 K 5.2* CL 116* CO2 26.1 BUN 33* CR 0.95 CA 9.0 GLU 87 AGAP 0.9* TP 5.4* ALB 2.3* ALT 18 WBC 4.4* HGB 7.7* PLT 147 Recent Labs Lab 10/22/21 1817 10/24/21 1353 10/24/21 1646 TROP 61* 35 32 No results found for this visit on 10/22/21 (from the past 8736 hour(s)). Results for orders placed or performed during the hospital encounter of 10/22/21 (from the past 8736 hour(s)) CULTURE, BACTERIA, BLOOD Collection Time: 10/22/21 6:17 PM Specimen: BLOOD Result Value Ref Range Spec. Description BLOOD Special Requests: NO SPECIAL REQUEST Culture Result: NO GROWTH 4 DAYS CULTURE, BACTERIA, BLOOD Collection Time: 10/22/21 6:17 PM Specimen: BLOOD Result Value Ref Range Spec. Description BLOOD Special Requests: NO SPECIAL REQUEST Culture Result: NO GROWTH 4 DAYS HAWK MACDONALD Cosigned by Zachary Bolden MD at 11/04/2021 8:52 AM CDT * Yoko Desouza PharmD - 10/26/2021 11:25 AM CDT Warfarin Pharmacy to Dose Day #4 Ordering Provider: Dr. Bell Indication: Afib, Mechanical AVR Goal INR: 2.5-3.5 Home Dose: 5 mg daily Date Dose INR H/H/PLT 10/22 held 3.7 9.2/31.1/178 10/23 held 3.7 8.1/27.3/155 10/24 4 mg 3.1 8.1/26.9/152 10/25 5 mg 2.6 7.9/26.4/151 10/26 3.2 7.7/25.8/147 Diet: Cardiac, low cholesterol (25-75% intake charted) Interacting Medications: - Azithromycin (10/24-10/26) - Cefdinir (home med), stopped 10/26 - methimazole (home med) A/P: Pt on home warfarin of 5 mg daily for Afib and mechanical AVR and is admitted with hypotension. 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 INR is therapeutic at 3.2. Will decrease warfarin to 4 mg tonight considering INR trend and supratherapeutic INR upon admission. (Interacting Abx being stopped today so will need to monitor INR closely during next couple days.) Daily INRs ordered. Pharmacy will continue to follow and dose as appropriate. Thank you for the consult. * Suleman Dueñas MD - 10/26/2021 10:25 AM CDT Pulmonary Consultation Note History Chief Complaint Patient presents with ??? Weakness Pt was Dced from here yesterday where she was treated for PNA. Arrives here with increased weakness. States she could hardly get herself off the commode. Ana Maria Bobo is a 76-year-old female who has past medical history significant for atrial fibrillation on warfarin, atrial flutter, coronary disease, hyperlipidemia, pretension, diabetes mellitus. 10/15/2021 - 10/22/2021 ALEX treated for chest pain, concern for pneumonia 10/22/2021: Presented to the emergency department with increasing weakness. Found to be hypotensive and hypoxic 10/23/2021: Required BiPAP this day due to respiratory acidosis, requiring 2 L nasal cannula when off BiPAP 10/24/2021: Pulmonary medicine consulted today for further recommendations. At the time my visit sheis alert but having a difficult time recalling what happened when she came into the hospital. She notes that she was having some abdominal discomfort. She has shortness of breath, unclear if it is new but states that when she walks around she can only walk a couple of feet for which she would have to stop to catch her breath. At times she does feel short of breath at rest as well. Denies any history of known pulmonary disease, that being said she does have an albuterol inhaler that she uses at home. On average 3 times weekly. No known prior diagnosis of asthma. Denies history of being diagnosed as COPD. Denies significant cough or phlegm production. No wheezing. Denies oxygen use at home. Essentially a never smoker, states that she smoked for 1 week when she was younger. 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 Just returned from CT. On 2L NC, SPO2 99%. Pt endorses feeling a little better. No new complaints. 10/26/2021: Sleeping when I entered the room today. Remains on room air. Feels at her baseline with regards to respiratory status. Past Medical History: Diagnosis Date ??? 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 Anxiety ??? Atrial flutter (CMS/HCC) ??? Cataract ??? Chronic anticoagulation due to mechanical heart valve ??? Chronic pain ??? Diabetes mellitus (CMS/HCC) ??? H/O mechanical aortic valve replacement 2003 ??? Hypertension Past Surgical History: Procedure Laterality Date ??? REPAIR HEART WOUND Social History Tobacco Use ??? Smoking status: Never Smoker ??? Smokeless tobacco: Never Used ??? Tobacco comment: non smoker Vaping Use ??? Vaping Use: Never used Substance Use Topics ??? Alcohol use: Not Currently ??? Drug use: Yes Types: Hydrocodone Comment: chronic pain Family History Problem Relation Name Age of Onset ??? Heart Father ??? Diabetes Father ??? Heart Mother ??? azithromycin 500 mg Oral Daily ??? cefdinir 300 mg Oral Daily ??? furosemide 20 mg Oral Daily ??? gabapentin 300 mg Oral BID ??? lidocaine 1 patch Transdermal Q24H ??? methIMAzole 5 mg Oral Daily ??? pantoprazole EC 20 mg Oral Daily ??? rosuvastatin 5 mg Oral Nightly at bedtime ??? senna-docusate 1 tablet Oral Nightly at bedtime ??? venlafaxine XR 150 mg Oral Daily with breakfast ??? warfarin (COUMADIN) pharmacy to dose Oral See Admin Instructions acetaminophen, albuterol sulfate HFA, ALPRAZolam, dextrose 10 % bolus, glucagon, glucose, HYDROcodone-acetaminophen, cgxmupnfq-yccpijcl-pfhwgvolxcb, naLOXone, ondansetron, polyethylene glycol Allergies Allergen Reactions ??? Atorvastatin Leg Pain Leg pain/cramps. Resolved after stopping. ??? Tape Contact Dermatitis ??? Bacitracin Other (see comment) ??? Benzalkonium Other (see comment) ??? Gramicidin Other (see comment) ??? Hydrocortisone Other (see comment) ??? Neomycin Other (see comment) ??? Polymyxin B Other (see comment) Review of Systems Constitutional: Positive for malaise/fatigue. Negative for chills, fever and weight loss. HENT: Negative for congestion, ear pain, hearing loss and nosebleeds. Eyes: Negative for blurred vision, double vision and redness. Respiratory: Positive for shortness of breath. Negative for cough, hemoptysis, sputum production and wheezing. Cardiovascular: Negative for chest pain, palpitations, orthopnea, leg swelling and PND. Gastrointestinal: Negative for heartburn, nausea and vomiting. Genitourinary: Negative for dysuria, frequency and urgency. Musculoskeletal: Negative for myalgias. Skin: Negative for rash. Neurological: Negative for dizziness, tingling and headaches. Endo/Heme/Allergies: Does not bruise/bleed easily. Psychiatric/Behavioral: Negative for depression, hallucinations and suicidal ideas. Physical Exam Filed Vitals: 10/25/21 2045 10/25/21 2354 10/26/21 0445 10/26/21 0726 BP: 109/55 114/57 108/49 104/79 Pulse: 107 95 92 112 Resp: 18 13 Temp: 98.2 ??F (36.8 ??C) 98.4 ??F (36.9 ??C) TempSrc: Oral Oral SpO2: 97% 99% 99% Weight: 85.7 kg (188 lb 15 oz) Height: Physical Exam: General: Alert, pleasant, resting in bed, in NAD Neuro: Alert, appropriate Psych: Affect normal Head: NC, AT EENT: No Sinus tenderness to palpation, mallampati 2 Neck: Supple Lymph: No cervical lymphadenopathy Respiratory: No crackles. No wheezing. Cardiovascular: s1,s2, rrr, no audible murmur GI: soft, non-tender, non-distended, bs+ Musc: right wrist ROM wnl Ext: no edema, no clubbing Skin: No visible rashes, No visible tattoos Recent Labs Lab 10/24/21 0351 10/25/21 0550 10/26/21 0415 WBC 6.0 4.6 4.4* RBC 2.58* 2.49* 2.47* HGB 8.1* 7.9* 7.7* HCT 26.9* 26.4* 25.8* MCV 104.3* 106.0* 104.5* MCH 31.4* 31.7* 31.2* MCHC 30.1* 29.9* 29.8* PLT 152 151 147 RDW 12.3 12.3 12.2 MPV 13.9* 13.5* 13.4* PERNEU 68.2 50.5 51.5 PERLYM 12.0 22.5 21.4 PERMON 17.1 21.9 20.8 LYMC 0.72* 1.03 0.95* MONOC 1.03* 1.00* 0.92* EOSC 0.11 0.19 0.24 BASOC 0.04 0.03 0.03 DTYPE AUTOMATED DIFFERENTIAL AUTOMATED DIFFERENTIAL AUTOMATED DIFFERENTIAL Recent Labs Lab 10/22/21 1817 10/22/21 2350 10/24/21 0351 10/25/21 0550 10/26/21 0415 NA 135* < > 137 139 143 K 5.3* < > 5.3* 5.0 5.2* CL 106 < > 111* 112* 116* CO2 25.6 < > 24.5 25.8 26.1 AGAP 3.4* < > 1.5* 1.2* 0.9* BUN 59* < > 60* 48* 33* CR 2.19* < > 1.89* 1.26* 0.95 BUNCREATININ 26.9* < > 31.7* 38.1* 34.7* GLU 79 < > 124* 73 87 CA 9.1 < > 8.7 8.7 9.0 TP 6.1* -- -- 5.4* 5.4* ALB 2.6* -- -- 2.4* 2.3* TBIL 0.3 -- -- 0.5 0.4 ALKP 85 -- -- 81 83 AST 26 -- -- 17 22 ALT 24 -- -- 17 18 < > = values in this interval not displayed. Recent Labs Lab 10/24/21 0351 10/25/21 0550 10/26/21 0415 INR 3.1 2.6 3.2 MICRO: 09/19/2021 SARS-CoV-2 negative PFTs: 02/17/2020 Full flow volume loops not available Per report the FEV1 was 81%, FVC 81%, FEV1/FVC ratio 70%. TLC 136%. RV 216%. Impression noting pattern suggestive of COPD, disagree, given the numbers in the report this is not obstructed CXR 10/22/2021 Images personally reviewed. Infiltrate or effusion in the left lung base compared to prior imaging CT Chest 10/24/2021 1. Stable four-chamber cardiomegaly with mild anemia. 2. Trace nondrainable dependent left pleural effusion and even less equivocal trace left pleural fluid. 3. Stable focal left lower lobe anterior basal subsegmental atelectasis and minimal dependent subsegmental atelectasis. 4. Scattered subtle interlobular septal thickening may indicate an element of fluid overload. 5. No other acute or chronic significant airspace or airway finding. 6. Other nonemergent, incidental, stable and potential chronic findings as discussed in the report body above. 10/15/2021 Images personally reviewed. Relatively clear lung diane bilaterally. No PE. 2D Echocardiogram 10/16/2021 Ejection fraction 40 to 45%. Grade 2 diastolic dysfunction. RVSP 40 to 50 mmHg Assessment 1. Acute combined hypoxic/hypercarbic respiratory failure -resolved 2. Left lower lobe infiltrate -seen on chest x-ray however not seen on CT chest 3. Combined systolic and diastolic CHF Plan -Supplemental oxygen if needed to maintain saturations 90 to 96% - CT chest without obvious pneumonia, from my standpoint no antibiotics no longer needed - Obtain/maintain euvolemia - Encourage incentive spirometer - [facility] will sign off. Suleman Dueñas MD * Ashu Deng MD - 10/26/2021 9:13 AM CDT Hospitalist Daily Progress Note Subjective Pt reports LE weakness since recent hospital stay Reports shortness of breath improving Denies chest pain Denies confusion, palpitations, or dizziness Objective Filed Vitals: 10/26/21 1114 10/26/21 1504 10/26/21 1956 10/26/21 2304 BP: 94/56 114/58 121/57 111/59 Pulse: 111 105 86 103 Resp: Temp: 98.4 ??F (36.9 ??C) 98.8 ??F (37.1 ??C) 98.1 ??F (36.7 ??C) 97.9 ??F (36.6 ??C) TempSrc: Oral Oral Oral Oral SpO2: 100% 100% 100% 99% Weight: Height: Intake/Output 24H Total: Intake/Output Summary (Last 24 hours) at 10/27/2021 0013 Last data filed at 10/26/2021 0726 Gross per 24 hour Intake 120 ml Output -- Net 120 ml Physical Exam: -GENERAL: No acute distress, Well nourished, on NC -HEAD: Normocephalic, Atraumatic -EYES: Extraocular movements intact, PERRL -LUNGS: Effort normal, diminished b/l bases, coarse breath sounds -CVS: Regular rate and rhythm, S1 and S2 normal -ABDOMEN: Soft, Non tender, Non distended -EXT: No edema, FROM -NEURO: Awake, alert, oriented, No gross neuro deficits -SKIN: No significant rashes, warm Medications ??? furosemide 20 mg Oral Daily ??? gabapentin 300 mg Oral BID ??? lidocaine 1 patch Transdermal Q24H ??? methIMAzole 5 mg Oral Daily ??? metoprolol tartrate 12.5 mg Oral BID ??? pantoprazole EC 20 mg Oral Daily ??? rosuvastatin 5 mg Oral Nightly at bedtime ??? senna-docusate 1 tablet Oral Nightly at bedtime ??? venlafaxine XR 150 mg Oral Daily with breakfast ??? warfarin (COUMADIN) pharmacy to dose Oral See Admin Instructions acetaminophen, albuterol sulfate HFA, ALPRAZolam, dextrose 10 % bolus, glucagon, glucose, HYDROcodone-acetaminophen, ilchzzplx-kdvbecid-behklrdexzv, naLOXone, ondansetron, polyethylene glycol Labs, Imaging, Other Studies Recent Labs Lab 10/20/21 1101 10/21/21 0855 10/22/21 1817 10/23/21 0420 10/24/21 0351 10/25/21 0550 10/26/21 0415 WBC 5.1 4.0* 4.0* 4.3* 6.0 4.6 4.4* RBC 2.89* 2.83* 2.94* 2.60* 2.58* 2.49* 2.47* HGB 9.2* 8.7* 9.2* 8.1* 8.1* 7.9* 7.7* HCT 30.3* 29.4* 31.1* 27.3* 26.9* 26.4* 25.8* MCV 104.8* 103.9* 105.8* 105.0* 104.3* 106.0* 104.5* MCH 31.8* 30.7 31.3* 31.2* 31.4* 31.7* 31.2* MCHC 30.4* 29.6* 29.6* 29.7* 30.1* 29.9* 29.8* PLT 193 162 178 155 152 151 147 RDW 12.5 12.4 12.2 12.3 12.3 12.3 12.2 MPV 13.1* 13.1* 13.6* 13.3* 13.9* 13.5* 13.4* PERNEU 63.6 49.7 45.8 48.9 68.2 50.5 51.5 PERLYM 13.4 26.5 27.0 24.3 12.0 22.5 21.4 PERMON 17.9 18.0 19.9 21.3 17.1 21.9 20.8 LYMC 0.68* 1.06 1.07 1.05 0.72* 1.03 0.95* MONOC 0.91* 0.72 0.79 0.92* 1.03* 1.00* 0.92* EOSC 0.21 0.18 0.22 0.20 0.11 0.19 0.24 BASOC 0.04 0.04 0.05 0.03 0.04 0.03 0.03 DTYPE AUTOMATED DIFFERENTIAL AUTOMATED DIFFERENTIAL AUTOMATED DIFFERENTIAL AUTOMATED DIFFERENTIAL AUTOMATED DIFFERENTIAL AUTOMATED DIFFERENTIAL AUTOMATED DIFFERENTIAL Recent Labs Lab 10/20/21 1101 10/21/21 0855 10/22/21 1817 10/22/21 2350 10/23/21 0420 10/23/21 1754 10/24/21 0351 10/25/21 0550 10/26/21 0415 NA 139 142 135* 137 137 138 136 137 139 143 K 4.9 5.1 5.3* -- 4.9 -- 5.3* 5.0 5.2* CL 107 111* 106 -- 110* -- 111* 112* 116* CO2 29.8 28.8 25.6 -- 26.0 -- 24.5 25.8 26.1 AGAP 2.2* 2.2* 3.4* -- 1.0* -- 1.5* 1.2* 0.9* BUN 49* 47* 59* -- 57* -- 60* 48* 33* CR 1.68* 1.26* 2.19* -- 2.07* -- 1.89* 1.26* 0.95 BUNCREATININ 29.2* 37.3* 26.9* -- 27.5* -- 31.7* 38.1* 34.7* GLU 133* 84 79 -- 77 -- 124* 73 87 CA 9.7 9.9 9.1 -- 8.5 -- 8.7 8.7 9.0 TP -- -- 6.1* -- -- -- -- 5.4* 5.4* ALB -- -- 2.6* -- -- -- -- 2.4* 2.3* TBIL -- -- 0.3 -- -- -- -- 0.5 0.4 ALKP -- -- 85 -- -- -- -- 81 83 AST -- -- 26 -- -- -- -- 17 22 ALT -- -- 24 -- -- -- -- 17 18 No results for input(s): CHOL, TRI, HDL, LDL, HGBA1C, TSH in the last 168 hours. Recent Labs Lab 10/24/21 0351 10/25/21 0550 10/26/21 0415 INR 3.1 2.6 3.2 Recent Labs Lab 10/22/21 1817 10/24/21 1353 10/24/21 1646 TROP 61* 35 32 Recent Labs Lab 10/22/21 1817 10/22/21 2108 LACTICACID 0.8 <0.4 PROCT <0.05 -- Recent Labs Lab 10/24/21 0614 PH 7.33* PCO2 44.6 PO2 153* BICARBWB 23.5 BASEDEFICIT 2.5* No results found for this or any previous visit. Imaging ULTRASOUND GENERIC Result Date: 10/03/2021 Ordered by an unspecified provider. IMAGE GENERIC Result Date: 10/02/2021 Ordered by an unspecified provider. CT GENERIC Result Date: 10/03/2021 Ordered by an unspecified provider. CTA CHEST Result Date: 10/15/2021 Examination: CTA CHEST Clinical history: Chest pain Comparison: X-ray, same date DATE/TIME: 10/15/2021 5:13 PM Technique: Multiplanar images of the chest were obtained following the uneventful intravenous administration of 80 mL Isovue 370. 3D Post-processed images were reconstructed on an independent workstation. A dose lowering technique was used for this procedure, which may include, but is not limited to, dose reduction technique, automated exposure control, the use of iterative reconstruction, and ALARA (As Low As Reasonably Achievable) / Image Gently techniques. Findings: There is adequate pulmonary artery opacification. No evidence of pulmonary embolism. Mild to moderate cardiomegaly. Aortic valve prosthesis. Coronary artery calcifications. No pericardial effusion. Thoracic aorta is normal caliber. No mediastinal or hilar lymphadenopathy. No evidence of pneumonia or pulmonary edema. No pleural effusion or pneumothorax. Thoracic compression deformity of T6 with 75% anterior heightloss, appearing chronic. There is minimal retropulsion into the spinal canal with Mild spinal canal narrowing. Sternotomy. Thoracic spondylosis. IMPRESSION: 1. No evidence of pulmonary embolism or other acute findings. 2. Cardiomegaly. 3. Otherchronic or nonurgent findings as described above. Referred By: Interpreted By: Estevan Martines MD, 10/15/2021 5:52 PM CTA HEAD Result Date: 10/23/2021 DATE: 10/22/2021 12:37 PM INDICATION: Right MCA aneurysm. EXAMINATION: CT angiography of the head. TECHNIQUE: CT angiography of the head was performed after uneventful intravenous administration of 80mL IOPAMIDOL 76 % IV SOLN. CT dose reduction techniques were utilized. Axial and 3-D/MIP images were reconstructed and reviewed. Additional 3-D reconstructions and/or postprocessing were performed on a separate dedicated 3-D workstation. A dose lowering technique was used for this procedure, which may include, but is not limited to, dose reduction technique, automated exposure control, the use of iterative reconstruction, and ALARA (As Low As Reasonably Achievable) / Image Gently techniques. COMPARISON: Report from catheter angiography performed 08/10/2020, images not available for direct comparison. FINDINGS: CTA HEAD: There is a 3-4 mm vascular outpouching at the right MCA bifurcation, corresponding to patient's known right MCA aneurysm. Scattered atherosclerotic calcifications seen along t he cavernous and supraclinoid ICA segments, but with less than 50% narrowing suggested. 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 Anterior communicating artery is patent. Otherwise the proximal portions of the anterior and middle cerebral arteries are patent. Atherosclerotic calcifications seen along the vertebral artery V4 segments, without significant narrowing. Basilar artery patent to the terminus. 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 Proximal portions of the posterior cerebral arteries, superior cerebellar arteries, and PICA branches are patent. Right posterior communicating artery not well- visualized. SOFTTISSUES: Small vessel disease and volume loss. Bilateral lens replacements. IMPRESSION: 1. 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 Similar findings described on prior catheter angiography examination 08/10/2020, though no images are available for direct comparison. Ordered By: SULEMAN WEBSTER Interpreted By: Dale Brush MD, 10/23/2021 9:21 AM USV NEGRITA DUPLEX LOW EXT RT Result Date: 10/21/2021 VENOUS DUPLEX IMAGING RIGHT LOWER EXTREMITY VASCULAR LAB Pat.Name: ANA MARIA BOBO Pat.ID: [id number] .Date: 10/15/2021 Exam Time: 4:09:00 PM Study Type:TOYA VS Venous Duplex Leg Rt Age: 3 1945,76Y Sex: FEMALE Sonogrphr: Diana Bronson RVT Pat. Stat.:Outpatient Room: ER History / Clinical:Chest pain. Calf injury, redness, edema. PMH, cad, dm, htn, ckd, hld, copd Procedures: Carrillo scale, Color Doppler imaging, Doppler Spectral Analysis Race: W ++++++++++++++++++++++++++++++++++++ SUMMARY: ++++++++++++++++++++++++++++++++++++ Right leg: There are NO apparent, deep or superficial vein, ACUTE character venous filling defects visualized in the femoral, popliteal, deep calf or proximal saphenous veins. Resting venous flow is normal phasic proximally. No valve reflux with compressionmaneuvers is detected in the femoral and popliteal veins. Left leg LIMITED: Resting venous flow is normal phasic at the common femoral. No valve reflux with compression maneuvers is detected in the common femoral vein. CONCLUSION: Normal study right lower extremity, with no evidence of acute deep or superficial vein thrombosis. There is no significant reflux detected. ++++++++++++++++++++++++++++++++++++ FINDINGS: ++++++++++++++++++++++++++++++++++++ Signed 10/21/2021 12:57 PM José Kaiser M.D. XR CHEST PA+LAT Result Date: 10/19/2021 Examination: Chest x-ray 2 view Exam Date/Time: 10/19/2021 7:00 AM Reason For Exam: chf Comparison: 10/15/2021 chest radiograph Technique: PA and lateral views of the chest were obtained. Findings: Heart size prominent but stable from prior study. Post sternotomy changes again seen including fractured wires. Atherosclerotic aorta. Increased AP dimensional airspace and flattening of diaphragms. Pulmonary vascularity stable from prior study. Interval worsening of opacities at the lung bases more so on the left obscuring diaphragm shadow on frontal view. Upper lungs clear. ======== IMPRESSION: ======== 1. Developing opacity at the anterior left lung base may be infiltrate or atelectasis. Stable interval appearance of the chest otherwise. Referred By: Interpreted By: Quoc Wilkinson MD, 10/19/2021 7:10 AM XR CHEST PORTABLE Result Date: 10/22/2021 Exam: Chest x-ray Comparison 10/19/2021 INDICATION: Recent hospital discharge for pneumonia. Dyspnea. TECHNIQUE: One view FINDINGS: The heart is enlarged. Median sternotomy and valve replacement. Central pulmonary vessels are partially obscured but are within normal limits for size. The right lung is clear. Indistinctness of the left lung base and hemidiaphragm. Uncertain significance with portable technique and superimposed soft tissues. There could be a component of lung opacification or smallpleural effusion present. No substantial change from the prior exam allowing for differences in patient positioning. The remainder of the left lung is clear. IMPRESSION: 1. Enlarged heart. 2. Artifact versus some mild increased density in the left lung base. Referred By: Interpreted By: Neel Basurto MD, 10/22/2021 6:20 PM XR CHEST PORTABLE Result Date: 10/15/2021 Examination: Chest 1 view portable History: Chest pain DATE/TIME: 10/15/2021 1:17 PM Comparison: None Technique: AP upright portable view of the chest was obtained. Findings: Sternotomy. Heart size and mediastinal contours are normal. Borderline pulmonary vasculature. No pulmonary consolidation, pleural effusion or pneumothorax. No acute osseous abnormality. Old left clavicle fracture. Impression: 1. No acute infiltrate. 2. Borderline vascular congestion. Referred By: Interpreted By: Estevan Martines MD, 10/15/2021 1:33 PM USE ECHOCARDIOGRAM W CON Result Date: 10/16/2021 Echocardiography Report Pat.Name: ANA MARIA BOBO Pat.ID: [id number] St.Date: 10/16/2021 Exam Time: 3:01:00 PM Study Type:ECHO WITH CARDIAC DOPPLER COMP Height: 64in Weight: 183.62lb BSA: 1.89 m2 Age: 3 1945,76Y Sex: FEMALE BP: 115/57 HR: 91 bpm Sonogrphr: Becky Martel [facility] Pat. Stat. :Inpatient Room: [facility] Reason for Study: Aortic valve replacement, Congestive heart failure, Dyspnea on exertion, Murmur History / Clinical: Chest pain. Calf injury, redness, edema. PMH, cad, dm, htn, ckd, hld, copd Procedures: 2D, M- mode, Doppler, Color Flow, Definity was used to enhance endocardial definition., The study quality is technically difficult. Race: W ++++++++++++++++++++++++++++++++++++ SUMMARY: ++++++++++++++++++++++++++++++++++++ The left ventricular size is normal. Estimated left ventricular ejection fraction is 40-45%. Moderate concentric left ventricular hypertrophy. Left ventricular diastolic function is abnormal (grade 2 - pseudonormal pattern). ?Moderate global hypokinesis is noted. The right ventricular size is normal. Right ventricular systolic function is moderately depressed. A mechanical valve is in the aortic position with post-deployment peak velocity of 3.53m/sec, mean gradient of 31mmHg and a calculated YADIRA of 1.10cm2. Right ventricular systolic pressure is 40-50 mmHg suggestive of mild to moderate pulmonary hypertension. Mild to moderate tricuspid regurgitation. Moderate mitral regurgitation. ++++++++++++++++++++++++++++++++++++ FINDINGS: ++++++++++++++++++++++++++++++++++++ LV: The left ventricular size is normal. Estimated left ventricular ejection fraction is 40-45%. Moderate concentric left ventricular hypertrophy. Left ventricular diastolic function is abnormal (grade 2 - pseudonormal pattern). WM: Moderate global hypokinesis is noted.RV: The right ventricular size is normal. Right ventricular systolic function is moderately depressed. IVS: No evidence of ventricular septal defect. LA: The left atrial size is mildly enlarged. The left atrial volume is mildly increased (34- 41ml/M2). RA: Right atrial size is mildly enlarged. IAS:Atrial septum appears intact. DENICE: No evidence of pericardial effusion. AO: Normal aortic root. PA: Estimated right atrial pressure of 15 mmHg. SVn: Inferior vena cava is mildly enlarged. Inferior vena cava shows <50% collapse with respiration consistent with elevated right atrial pressure. AV: Mechanical prosthetic aortic valve seen. A trace of denice-prosthetic aortic valve regurgitation. A mechanical valve is in the aortic position with post-deployment peak velocity of 3.53m/sec, mean gradient of 31mmHg and a calculated YADIRA of 1.10cm2. MV: Moderate mitral regurgitation. No evidence of mitral stenosis. PV: No evidence of pulmonic valve stenosis. Mild pulmonic regurgitation. TV: Mild tomoderate tricuspid regurgitation. Right ventricular systolic pressure is 40-50 mmHg suggestive of mild to moderate pulmonary hypertension. No evidence of tricuspid valve stenosis. ++++++++++++++++++++++++++++++++++++ MEASUREMENTS: ++++++++++++++++++++++++++++++++++++ DOPPLER LVOT LVOTpkPG 8 mmHg LVOTmnPG 4 mmHg LVOTpkVel 141 cm/s (70-110)+* LVOT SV 83 ml LVOT TVI 26.3 cm Right Atrium RA Press 15mmHg Ayala's Disk 20 AV Forward Flow AV TVI 51.2 cm AV pkPG 37 mmHg AV pkVel 305 cm/s (100-170)+*Area (TVI) 1.61 cm2 (3-5)* AV mnPG 21 mmHg Area (Randall) 1.45 cm2 (3-5)* AV Regurg Flow AV pkVel 381 cm/s AV P1/2t 290 ms AV pkPG 58 mmHg MV Forward Flow MV DeTm 257 ms MV pkPG 9 mmHg MV mnPG 3 mmHg MV pkE 134 cm/s (60-130)+* PV Forward Flow PV pkVel 96.4 cm/s (60-90)* PV AC 109 ms PV pkPG 4 mmHg TV Regurg Flow TV pkPG 26 mmHg TV pkVel 253 cm/s (30-70)+* Right Ventricle RVsys P 41 mmHg Right Ventricle 5.32 cm/s Lat E' Lat e 7.2 cm/s Lat E/E' Lat E/e 18.6 Med E' Med e 4.94 cm/s Med E/E' Med E/e 27.1 Aortic Valve Aortic Valve Ar 0.85 Aortic Valve Ve 0.46 PV Antegrade Flow Acceleration Sl 573 cm/[id number] Distance 8 mm 2D Left Ventricle LVIDd 4.8 cm (3.6-5.2)+ LV ESV 52.6 ml LVIDs 3.63 cm (2.3-3.9)+ LV ESV 46.2 ml LngAxd 7.03 cm LVESV BP 50.5 ml LngAxd 7.4 cm LV EF 36.1 % LV EDV 82.2 ml LV EF 42.7 % LV EDV 80.4 ml LV EF BP 38.7 % LVEDV BP 82.4 ml LV SV 29.6 ml LngAxs 6.96 cm LV SV 34.4 ml LngAxs 7.36 cm LV SV BP 31.9 ml LVPW LVPWd 1.36 cm Ventricular Septum IVSd 1.32 cm Left Atrium LA VOLBP72.9 ml Aorta Ao Rtd 2.4 cm LVOT LVOT 2 cm LVOTArea 3.14 cm2 Ratios IVS LA Biplane LAVol I BP 38.6ml/m2 RA Single Plane Right Atrium MO 13.4 mm Right Atrium Sy 51.1 ml Right Atrium Sy 64.4 mm RightAtrium Sy 27 ml/m2 Right Atrium Sy 20 cm2 Right Ventricle Right Ventricle 27 mm Right Ventricle 32.8 mm Major [place] [facility] 77.7 mm Signed 10/16/2021 06:42 PM Tere Cedillo M.D. 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 Patient status post 2 L normal saline given in the emergency room. We will hold on further IV fluid resuscitation at this time. Holding outpatient oral antihypertensive medications and diuretics. F/u BMP Monitor VS and pulse ox Fall precautions 10/25 resume lasix and BB tomorrow AM per cardiology if BP stable 10/26 remains hypotensive today; lasix resumed, then held per cardiology; BB on hold NSTEMI Cardiology consulted Trend trop F/u outpatient with Dr. Paredes for ischemic eval once stable Start ASA 81 mg per cardiology Telemetry 10/25 resume lasix in AM tomorrow with BB per cardiology if BP stable 10/26 lasix resumed, BP will not tolerate resuming BB today ?? Acute on chronic renal Failure: suspect seconday to hypotension possible diuresis and continued administration of nephrotoxic medications and reduced oral intake. Medications reviewed will hold nephrotoxic medications. UA pending. status post 2 L normal saline to achieve and maintain euvolemia. Given history of heart failure monitor volume status closely avoid hypotension. Renally dose medications. Consider nephrology consult if not improved with correction of precipitating factors. F/u BMP -had held diuresis, Monitor Cr , No further IV fluids at this time 10/25 resume lasix in AM tomorrow per cardiology 10/26 will attempt to resume lasix again tomorrow if BP permits; BB remains on hold Chronic heart failure reduced ejection fraction: Patient appears dry to euvolemic on exam currently holding outpatient antihypertensives and diuretic medications and nephrotoxic medications. Resume as indicated. Continue cardiac medications as indicated. ?? CAP: Patient afebrile no leukocytosis we will continue current dose antibiotics pulmonary toilet pulm consulted F/u sputum culture Antibiotics discontinued per pulmonology ?? Acute hypoxic respiratory failure: Secondary to the above patient continues to be maintained on 2 L nasal cannula 1 L while sleeping patient also found to have respiratory acidosis started BiPAP, now dc'd f/u repeat ABG pulm consulted Improving Weaned to RA per pulm on 10/25 ?? A. fib currently rate controlled stroke risk reduction with Coumadin INR goal 2.5-3.5 for mechanical valve, pharmacy to dose. ?? Hyperlipidemia: Continue statin ?? Hypothyroidism continue methimazole follow-up PCP consider endocrinology referral. ?? GERD: Continue PPI Right MCA aneurysm Noted on CTA Also noted per radiology on prior imaging, though direct comparison not available Neurology consulted F/u MRI per enuro F/u EEG ?? - DVT prophylaxis: Coumadin - Diet/IVF: Cardiac - Code status: Full code - Disposition: Telemetry inpatient Plan of care discussed with patient, cardiology. ASHU DENG MD * Germania Hoover RN - 10/25/2021 11:57 PM CDT Problem: Reduced risk for falls/injury Goal: Reduced Risk for Falls/Injury Outcome: Progressing Problem: Pain Goal: Patient's pain/discomfort [...] and identify potential discharge needs. Outcome: Progressing * Oneil Michelle RN - 10/25/2021 2:42 PM CDT Per IDRs, no planned discharge this date. Per Dr. Deng, patient with increased SOB, elevated HR. Awaiting PT eval. RNCM will continue to follow for discharge needs. 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 Cedillo, follows at [facility] with Dr. Paredes. Seen with Dr. Alonzo Garcia Hanna Bobo is a 76-year-old female patient with past medical history significant for atrial flutter, A-fib anticoagulated with warfarin, mechanical [employer] [place] aortic valve (on warfarin), hypertension, obstructive sleep apnea compliant with CPAP. CAD, diabetes mellitus, HTN, HLD who presents for weakness. Of note, patient was admitted last week for CHF. She was diuresed and DC home. Since returning home, she has increased weakness. Noted to have OLIVE on CKD, found to be profoundly hypotensive. She was found to PNA, started on bipap for respiratory acidosis. Subjective: resting in bed, went for EEG today. On 2L. No new complaints, a little better today. Assessment and Plan: NSTEMI Mildly elevated troponin which then normalized. She has self limiting CP but also has possible PNA and cough. Echo done last admit showed EF was 40-45%, global hypokinesis. Consider repeat ischemic eval once other issues resolved. Resume home meds when able, on BB and statin Mechanical AVR Continue warfarin, INR goal is 2.5-3.5 INR today is 2.6 Hypotension In the setting of over diuresis and poor oral intake following discharge as contributing factors along with possible PNA. Patient status post 2 L normal saline given in the emergency room. ??We will hold on further IV fluid resuscitation at this time given hx of CHF. ??BP is improved Creatinine improved to 1.26 resuming oral lasix 20mg daily tomorrow. Blood cultures negative. No fevers. No significant leukocytosis. ?? OLIVE on CKD?? Received 2L IVF. Hold further fluids for now. consider renal consult if worsening. Hold nephrotoxicmeds. Hold lasix. ?? HFrEF, not in exacerbation Patient appears dry to euvolemic on exam currently holding outpatient antihypertensives and diuretic medications and nephrotoxic medications. ??Resume as indicated. Resume lasix 20mg daily tomorrow and monitor creatine Hopefully can resume metoprolol tomorrow as well. ?? PNA/UTI Per others. resp sputum culture pending apprecicate pulm recs, on ABX ?? Acute hypoxic respiratory failure: PH improved to 7.33. co2 normalized. On 2L oxygen. On abx pulm following Slowly improving A. fib Rate currently elevated due to acute illness stroke risk reduction with Coumadin INR pending pharmacy to dose. PLAN Resume lasix 20mg daily starting tomorrow Follow creatinine closely Resume metoprolol tomorrow if BP stable Patient to follow up with primary cards regarding ischemic eval, follows closely with Dr. 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 Paredes, last seen on 09/12/21.?? History of failed cardioversion in 2019, previously on sotalol and was placed on amiodarone. Underwent LHC in 2002 with minimal luminal irregularities. Prior lexiscan in 2019 with old anterior VA. Echo done 10/16/21 showed The left ventricular size is normal. Estimated left ventricular ejection fraction is 40-45%. Moderate concentric left ventricular hypertrophy. Left ventricular diastolic function is abnormal (grade 2 - pseudonormal pattern).Moderate global hypokinesis is noted. Right ventricular systolic function is moderately depressed. A mechanical valve is in the aortic position with post-deployment peak velocity of 3.53m/sec, mean gradient of 31mmHg and a calculated YADIRA of 1.10cm2. Right ventricular systolic pressure is 40-50 mmHg suggestive of mild to moderate pulmonary hypertension. Mild to moderate tricuspid regurgitation. Moderate mitral regurgitation. Past Medical History: Diagnosis Date ??? 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 Anxiety ??? Atrial flutter (CMS/HCC) ??? Cataract ??? Chronic anticoagulation due to mechanical heart valve ??? Chronic pain ??? Diabetes mellitus (CMS/HCC) ??? H/O mechanical aortic valve replacement 2003 ??? Hypertension Past Surgical History: Procedure Laterality Date ??? REPAIR HEART WOUND Social History Tobacco Use ??? Smoking status: Never Smoker ??? Smokeless tobacco: Never Used ??? Tobacco comment: non smoker Vaping Use ??? Vaping Use: Never used Substance Use Topics ??? Alcohol use: Not Currently ??? Drug use: Yes Types: Hydrocodone Comment: chronic pain Family History Problem Relation Name Age of Onset ??? Heart Father ??? Diabetes Father ??? Heart Mother ??? azithromycin 500 mg Oral Daily ??? cefdinir 300 mg Oral Daily ??? gabapentin 300 mg Oral BID ??? lidocaine 1 patch Transdermal Q24H ??? methIMAzole 5 mg Oral Daily ??? pantoprazole EC 20 mg Oral Daily ??? rosuvastatin 5 mg Oral Nightly at bedtime ??? senna-docusate 1 tablet Oral Nightly at bedtime ??? venlafaxine XR 150 mg Oral Daily with breakfast ??? warfarin (COUMADIN) pharmacy to dose Oral See Admin Instructions ??? warfarin 5 mg Oral Once acetaminophen, albuterol sulfate HFA, ALPRAZolam, dextrose 10 % bolus, glucagon, glucose, HYDROcodone-acetaminophen, aounegmee-cjyxbsgn-vxjkxrmkwlx, naLOXone, ondansetron, polyethylene glycol Prior to Admission medications Medication Sig Start Date End Date Taking? Authorizing Provider cefdinir (OMNICEF) 300 MG Cap capsule Take 1 capsule (300 mg total) by mouth 2 (two) times daily for 4 days. 10/22/21 10/26/21 Yes Jonathan Gaytan MD Cholecalciferol (VITAMIN D3) 25 MCG (1000 UT) Cap Take 1,000 Units by mouth daily. Yes Doc Abstract FEROSUL 325 (65 Fe) MG tablet Take 1 tablet by mouth once daily Patient taking differently: Take 325 mg by mouth daily with breakfast. 10/07/21 Yes Suleman Webster DO fluticasone propionate 50 MCG/ACT nasal spray 2 sprays by Nasal route daily. Yes Doc Abstract furosemide (LASIX) 40 MG tablet Take 1 tablet (40 mg total) by mouth daily for 30 days. 10/22/21 11/21/21 Yes Jonathan Gaytan MD gabapentin 300 MG capsule Take 1 capsule (300 mg total) by mouth 2 (two) times daily. 07/16/20 Yes Juan Pablo Dominguez MD LISINOPRIL 40 MG tablet Take 1 tablet by mouth once daily Patient taking differently: Take 40 mg by mouth daily. 03/11/21 Yes Suleman Webster DO methIMAzole 5 MG tablet Take 1 tablet (5 mg total) by mouth daily. 08/30/21 Yes Panda Moreno MD metoprolol succinate ER 25 MG 24 hr tablet Take 1 tablet (25 mg total) by mouth daily. 09/02/21 Yes Suleman Webster DO omeprazole (PRILOSEC) 20 MG capsule Take 1 capsule by mouth once daily 10/07/21 Yes Suleman Webster DO rosuvastatin 5 MG tablet Take 1 tablet (5 mg total) by mouth nightly at bedtime. 08/14/21 Yes Jonathan Webster DO VENLAFAXINE XR 150 MG 24 hr capsule Take 1 capsule by mouth once daily Patient taking differently: Take 150 mg by mouth daily. 06/17/21 Yes Suleman Webster DO warfarin (COUMADIN) 5 MG tablet Take 5 mg by mouth daily. Yes Doc Abstract acetaminophen (TYLENOL) 500 MG tablet Take 500 mg by mouth daily as needed. 08/17/20 Doc Abstract albuterol sulfate HFA 108 (90 Base) MCG/ACT inhaler Inhale 2 puffs into the lungs every 6 (six) hours as needed for Wheezing. 10/10/21 Suleman Webster, DO ALPRAZolam (XANAX) 0.25 MG tablet Take 1 tablet (0.25 mg total) by mouth 2 (two) times daily as needed for Anxiety. 10/10/21 Suleman Webster, DO HYDROcodone-acetaminophen (NORCO) 10-325 MG tablet Take 1 tablet by mouth every 6 (six) hours as needed for Pain. Indications: Chronic Pain Do not take with alprazolam. No further refills until seen in office. 09/26/21 Suleman Webster, DO lidocaine 5 % Apply pain patch to affected area. Change after 12 hours. 08/30/20 Trina Hoffman NP Allergies Allergen Reactions ??? Atorvastatin Leg Pain Leg pain/cramps. Resolved after stopping. ??? Tape Contact Dermatitis ??? Bacitracin Other (see comment) ??? Benzalkonium Other (see comment) ??? Gramicidin Other (see comment) ??? Hydrocortisone Other (see comment) ??? Neomycin Other (see comment) ??? Polymyxin B Other (see comment) Review of Systems Constitutional: Positive for malaise/fatigue. Negative for chills, diaphoresis, fever and weight loss. HENT: Negative for hearing loss. Eyes: Negative for blurred vision and double vision. Respiratory: Negative for cough, shortness of breath and wheezing. Cardiovascular: Negative for chest pain, palpitations, orthopnea, claudication, leg swelling and PND. Gastrointestinal: Negative for blood in stool, diarrhea, heartburn and nausea. Genitourinary: Negative for dysuria and hematuria. Musculoskeletal: Negative for falls, joint pain and myalgias. Skin: Negative for rash. Neurological: Negative for dizziness, tingling, focal weakness, weakness and headaches. Endo/Heme/Allergies: Does not bruise/bleed easily. Psychiatric/Behavioral: Negative for depression and memory loss. Filed Vitals: 10/24/21 2242 10/25/21 0410 10/25/21 0857 10/25/21 1314 BP: 129/59 118/47 (!) 134/118 (!) 158/62 Pulse: 118 104 106 111 Resp: Temp: 98 ??F (36.7 ??C) 98.4 ??F (36.9 ??C) 98.4 ??F (36.9 ??C) TempSrc: Oral Oral SpO2: 98% 97% 99% 96% Weight: 85.5 kg (188 lb 7.9 oz) Height: Physical Exam: Physical Exam Constitutional: Appearance: She is well-developed. She is not ill-appearing. Eyes: Pupils: Pupils are equal, round, and reactive to light. Neck: Vascular: No JVD. Cardiovascular: Rate and Rhythm: Normal rate and regular rhythm. Heart sounds: Normal heart sounds. No murmur heard. Pulmonary: Effort: Pulmonary effort is normal. Breath sounds: No wheezing. Abdominal: General: Bowel sounds are normal. There is no distension. Palpations: Abdomen is soft. Tenderness: There is no abdominal tenderness. Musculoskeletal: General: Normal range of motion. Skin: General: Skin is warm and dry. Comments: Flushed cheeks Neurological: Mental Status: She is alert and oriented to person, place, and time. Recent Labs Lab 10/23/21 0420 10/24/21 0351 10/25/21 0550 WBC 4.3* 6.0 4.6 RBC 2.60* 2.58* 2.49* HGB 8.1* 8.1* 7.9* HCT 27.3* 26.9* 26.4* MCV 105.0* 104.3* 106.0* MCH 31.2* 31.4* 31.7* MCHC 29.7* 30.1* 29.9* PLT 155 152 151 RDW 12.3 12.3 12.3 MPV 13.3* 13.9* 13.5* PERNEU 48.9 68.2 50.5 PERLYM 24.3 12.0 22.5 PERMON 21.3 17.1 21.9 LYMC 1.05 0.72* 1.03 MONOC 0.92* 1.03* 1.00* EOSC 0.20 0.11 0.19 BASOC 0.03 0.04 0.03 DTYPE AUTOMATED DIFFERENTIAL AUTOMATED DIFFERENTIAL AUTOMATED DIFFERENTIAL Recent Labs Lab 10/22/21 1817 10/22/21 2350 10/23/21 0420 10/23/21 1754 10/24/21 0351 10/25/21 0550 NA 135* < > 137 138 136 137 139 K 5.3* -- 4.9 -- 5.3* 5.0 CL 106 -- 110* -- 111* 112* CO2 25.6 -- 26.0 -- 24.5 25.8 AGAP 3.4* -- 1.0* -- 1.5* 1.2* BUN 59* -- 57* -- 60* 48* CR 2.19* -- 2.07* -- 1.89* 1.26* BUNCREATININ 26.9* -- 27.5* -- 31.7* 38.1* GLU 79 -- 77 -- 124* 73 CA 9.1 -- 8.5 -- 8.7 8.7 TP 6.1* -- -- -- -- 5.4* ALB 2.6* -- -- -- -- 2.4* TBIL 0.3 -- -- -- -- 0.5 ALKP 85 -- -- -- -- 81 AST 26 -- -- -- -- 17 ALT 24 -- -- -- -- 17 < > = values in this interval not displayed. Recent Labs Lab 10/23/21 0420 10/24/21 0351 10/25/21 0550 INR 3.7 3.1 2.6 Recent Labs Lab 10/25/21 0550 NA 139 K 5.0 CL 112* CO2 25.8 BUN 48* CR 1.26* CA 8.7 GLU 73 AGAP 1.2* TP 5.4* ALB 2.4* ALT 17 WBC 4.6 HGB 7.9* PLT 151 Recent Labs Lab 10/22/21 1817 10/24/21 1353 10/24/21 1646 TROP 61* 35 32 No results found for this visit on 10/22/21 (from the past 8736 hour(s)). Results for orders placed or performed during the hospital encounter of 10/22/21 (from the past 8736 hour(s)) CULTURE, BACTERIA, BLOOD Collection Time: 10/22/21 6:17 PM Specimen: BLOOD Result Value Ref Range Spec. Description BLOOD Special Requests: NO SPECIAL REQUEST Culture Result: NO GROWTH 2 DAYS CULTURE, BACTERIA, BLOOD Collection Time: 10/22/21 6:17 PM Specimen: BLOOD Result Value Ref Range Spec. Description BLOOD Special Requests: NO SPECIAL REQUEST Culture Result: NO GROWTH 2 DAYS HAI DAILEY Cosigned by Jerome Rosado MD,PHD at 10/25/2021 4:15 PM CDT * Fátima Rushing - 10/25/2021 12:17 PM CDT I delivered the Reinforcement Important Message from Medicare (Subsequent IMM) to Ana Maria Bobo and after explaining the form to the patient, the Patient signed the form. The Patient received acopy of the form for their records. 10/25/21 1216 Forms Reinforcement Important Message from Medicare (Subsequent IMM) Signed Copy delivered * Ashu Deng MD - 10/25/2021 10:43 AM CDT Hospitalist Daily Progress Note Subjective Pt reports LE weakness since recent hospital stay Reports shortness of breath improving Reports mild chest pain Denies confusion, palpitations, or dizziness Objective Filed Vitals: 10/25/21 1314 10/25/21 2045 10/25/21 2354 10/26/21 0445 BP: (!) 158/62 109/55 114/57 108/49 Pulse: 111 107 95 92 Resp: 18 18 Temp: 98.4 ??F (36.9 ??C) 98.2 ??F (36.8 ??C) TempSrc: Oral Oral SpO2: 96% 97% 99% Weight: 85.7 kg (188 lb 15 oz) Height: Intake/Output 24H Total: Intake/Output Summary (Last 24 hours) at 10/26/2021 0643 Last data filed at 10/25/2021 2300 Gross per 24 hour Intake 120 ml Output 1350 ml Net -1230 ml Physical Exam: -GENERAL: No acute distress, Well nourished, on NC -HEAD: Normocephalic, Atraumatic -EYES: Extraocular movements intact, PERRL -LUNGS: Effort normal, diminished b/l bases, coarse breath sounds -CVS: Regular rate and rhythm, S1 and S2 normal -ABDOMEN: Soft, Non tender, Non distended -EXT: No edema, FROM -NEURO: Awake, alert, oriented, No gross neuro deficits -SKIN: No significant rashes, warm Medications ??? azithromycin 500 mg Oral Daily ??? cefdinir 300 mg Oral Daily ??? furosemide 20 mg Oral Daily ??? gabapentin 300 mg Oral BID ??? lidocaine 1 patch Transdermal Q24H ??? methIMAzole 5 mg Oral Daily ??? pantoprazole EC 20 mg Oral Daily ??? rosuvastatin 5 mg Oral Nightly at bedtime ??? senna-docusate 1 tablet Oral Nightly at bedtime ??? venlafaxine XR 150 mg Oral Daily with breakfast ??? warfarin (COUMADIN) pharmacy to dose Oral See Admin Instructions acetaminophen, albuterol sulfate HFA, ALPRAZolam, dextrose 10 % bolus, glucagon, glucose, HYDROcodone-acetaminophen, ty[place]ibitv-aeqczqxf-onmwes[place], naLOXone, ondansetron, polyethylene glycol Labs, Imaging, Other Studies Recent Labs Lab 10/20/21 1101 10/21/21 0855 10/22/21 1817 10/23/21 0420 10/24/21 0351 10/25/21 0550 10/26/21 0415 WBC 5.1 4.0* 4.0* 4.3* 6.0 4.6 4.4* RBC 2.89* 2.83* 2.94* 2.60* 2.58* 2.49* 2.47* HGB 9.2* 8.7* 9.2* 8.1* 8.1* 7.9* 7.7* HCT 30.3* 29.4* 31.1* 27.3* 26.9* 26.4* 25.8* MCV 104.8* 103.9* 105.8* 105.0* 104.3* 106.0* 104.5* MCH 31.8* 30.7 31.3* 31.2* 31.4* 31.7* 31.2* MCHC 30.4* 29.6* 29.6* 29.7* 30.1* 29.9* 29.8* PLT 193 162 178 155 152 151 147 RDW 12.5 12.4 12.2 12.3 12.3 12.3 12.2 MPV 13.1* 13.1* 13.6* 13.3* 13.9* 13.5* 13.4* PERNEU 63.6 49.7 45.8 48.9 68.2 50.5 51.5 PERLYM 13.4 26.5 27.0 24.3 12.0 22.5 21.4 PERMON 17.9 18.0 19.9 21.3 17.1 21.9 20.8 LYMC 0.68* 1.06 1.07 1.05 0.72* 1.03 0.95* MONOC 0.91* 0.72 0.79 0.92* 1.03* 1.00* 0.92* EOSC 0.21 0.18 0.22 0.20 0.11 0.19 0.24 BASOC 0.04 0.04 0.05 0.03 0.04 0.03 0.03 DTYPE AUTOMATED DIFFERENTIAL AUTOMATED DIFFERENTIAL AUTOMATED DIFFERENTIAL AUTOMATED DIFFERENTIAL AUTOMATED DIFFERENTIAL AUTOMATED DIFFERENTIAL AUTOMATED DIFFERENTIAL Recent Labs Lab 10/20/21 1101 10/21/21 0855 10/22/21 1817 10/22/21 2350 10/23/21 0420 10/23/21 1754 10/24/21 0351 10/25/21 0550 10/26/21 0415 NA 139 142 135* 137 137 138 136 137 139 143 K 4.9 5.1 5.3* -- 4.9 -- 5.3* 5.0 5.2* CL 107 111* 106 -- 110* -- 111* 112* 116* CO2 29.8 28.8 25.6 -- 26.0 -- 24.5 25.8 26.1 AGAP 2.2* 2.2* 3.4* -- 1.0* -- 1.5* 1.2* 0.9* BUN 49* 47* 59* -- 57* -- 60* 48* 33* CR 1.68* 1.26* 2.19* -- 2.07* -- 1.89* 1.26* 0.95 BUNCREATININ 29.2* 37.3* 26.9* -- 27.5* -- 31.7* 38.1* 34.7* GLU 133* 84 79 -- 77 -- 124* 73 87 CA 9.7 9.9 9.1 -- 8.5 -- 8.7 8.7 9.0 TP -- -- 6.1* -- -- -- -- 5.4* 5.4* ALB -- -- 2.6* -- -- -- -- 2.4* 2.3* TBIL -- -- 0.3 -- -- -- -- 0.5 0.4 ALKP -- -- 85 -- -- -- -- 81 83 AST -- -- 26 -- -- -- -- 17 22 ALT -- -- 24 -- -- -- -- 17 18 No results for input(s): CHOL, TRI, HDL, LDL, HGBA1C, TSH in the last 168 hours. Recent Labs Lab 10/24/21 0351 10/25/21 0550 10/26/21 0415 INR 3.1 2.6 3.2 Recent Labs Lab 10/22/21 1817 10/24/21 1353 10/24/21 1646 TROP 61* 35 32 Recent Labs Lab 10/22/21181610/22/21 2108 LACTICACID 0.8 <0.4 PROCT <0.05 -- Recent Labs Lab 10/24/21 0614 PH 7.33* PCO2 44.6 PO2 153* BICARBWB 23.5 BASEDEFICIT 2.5* No results found for this or any previous visit. Imaging ULTRASOUND GENERIC Result Date: 10/03/2021 Ordered by an unspecified provider. IMAGE GENERIC Result Date: 10/02/2021 Ordered by an unspecified provider. CT GENERIC Result Date: 10/03/2021 Ordered by an unspecified provider. CTA CHEST Result Date: 10/15/2021 Examination: CTA CHEST Clinical history: Chest pain Comparison: X-ray, same date DATE/TIME: 10/15/2021 5:13 PM Technique: Multiplanar images of the chest were obtained following the uneventful intravenous administration of 80 mL Isovue 370. 3D Post-processed images were reconstructed on an independent workstation. A dose lowering technique was used for this procedure, which may include, but is not limited to, dose reduction technique, automated exposure control, the use of iterative reconstruction, and ALARA (As Low As Reasonably Achievable) / Image Gently techniques. Findings: There is adequate pulmonary artery opacification. No evidence of pulmonary embolism. Mild to moderate cardiomegaly. Aortic valve prosthesis. Coronary artery calcifications. No pericardial effusion. Thoracic aorta is normal caliber. No mediastinal or hilar lymphadenopathy. No evidence of pneumonia or pulmonary edema. No pleural effusion or pneumothorax. Thoracic compression deformity of T6 with 75% anterior heightloss, appearing chronic. There is minimal retropulsion into the spinal canal with Mild spinal canal narrowing. Sternotomy. Thoracic spondylosis. IMPRESSION: 1. No evidence of pulmonary embolism or other acute findings. 2. Cardiomegaly. 3. Otherchronic or nonurgent findings as described above. Referred By: Interpreted By: Estevan Martines MD, 10/15/2021 5:52 PM CTA HEAD Result Date: 10/23/2021 DATE: 10/22/2021 12:37 PM INDICATION: Right MCA aneurysm. EXAMINATION: CT angiography of the head. TECHNIQUE: CT angiography of the head was performed after uneventful intravenous administration of 80mL IOPAMIDOL 76 % IV SOLN. CT dose reduction techniques were utilized. Axial and 3-D/MIP images were reconstructed and reviewed. Additional 3-D reconstructions and/or postprocessing were performed on a separate dedicated 3-D workstation. A dose lowering technique was used for this procedure, which may include, but is not limited to, dose reduction technique, automated exposure control, the use of iterative reconstruction, and ALARA (As Low As Reasonably Achievable) / Image Gently techniques. COMPARISON: Report from catheter angiography performed 08/10/2020, images not available for direct comparison. FINDINGS: CTA HEAD: There is a 3-4 mm vascular outpouching at the right MCA bifurcation, corresponding to patient's known right MCA aneurysm. Scattered atherosclerotic calcifications seen along t he cavernous and supraclinoid ICA segments, but with less than 50% narrowing suggested. 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 Anterior communicating artery is patent. Otherwise the proximal portions of the anterior and middle cerebral arteries are patent. Atherosclerotic calcifications seen along the vertebral artery V4 segments, without significant narrowing. Basilar artery patent to the terminus. 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 Proximal portions of the posterior cerebral arteries, superior cerebellar arteries, and PICA branches are patent. Right posterior communicating artery not well- visualized. SOFTTISSUES: Small vessel disease and volume loss. Bilateral lens replacements. IMPRESSION: 1. 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 Similar findings described on prior catheter angiography examination 08/10/2020, though no images are available for direct comparison. Ordered By: SULEMAN WEBSTER Interpreted By: Dale Brush MD, 10/23/2021 9:21 AM USV NEGRITA DUPLEX LOW EXT RT Result Date: 10/21/2021 VENOUS DUPLEX IMAGING RIGHT LOWER EXTREMITY VASCULAR LAB Pat.Name: ANA MARIA BOBO Pat.ID: [id number] St.Date: 10/15/2021 Exam Time: 4:09:00 PM Study Type:TOYA VS Venous Duplex Leg Rt Age: 3 1945,76Y Sex: FEMALE Sonogrphr: Diana Bronson RVT Pat. Stat.:Outpatient Room: ER History / Clinical:Chest pain. Calf injury, redness, edema. PMH, cad, dm, htn, ckd, hld, copd Procedures: Carrillo scale, Color Doppler imaging, Doppler Spectral Analysis Race: W ++++++++++++++++++++++++++++++++++++ SUMMARY: ++++++++++++++++++++++++++++++++++++ Right leg: There are NO apparent, deep or superficial vein, ACUTE character venous filling defects visualized in the femoral, popliteal, deep calf or proximal saphenous veins. Resting venous flow is normal phasic proximally. No valve reflux with compression maneuvers is detected in the femoral and popliteal veins. Left leg LIMITED: Resting venous flow is normal phasic at the common femoral. No valve reflux with compression maneuvers is detected in thecommon femoral vein. CONCLUSION: Normal study right lower extremity, with no evidence of acute deepor superficial vein thrombosis. There is no significant reflux detected. ++++++++++++++++++++++++++++++++++++ FINDINGS: ++++++++++++++++++++++++++++++++++++ Signed 10/21/2021 12:57 PM José Kaiser M.D. XR CHEST PA+LAT Result Date: 10/19/2021 Examination: Chest x-ray 2 view Exam Date/Time: 10/19/2021 7:00 AM Reason For Exam: chf Comparison: 10/15/2021 chest radiograph Technique: PA and lateral views of the chest were obtained. Findings: Heart size prominent but stable from prior study. Post sternotomy changes again seen including fractured wires. Atherosclerotic aorta. Increased AP dimensional airspace and flattening of diaphragms. Pulmonary vascularity stable from prior study. Interval worsening of opacities at the lung bases more so on the left obscuring diaphragm shadow on frontal view. Upper lungs clear. ======== IMPRESSION: ======== 1. Developing opacity at the anterior left lung base may be infiltrate or atelectasis. Stable interval appearance of the chest otherwise. Referred By: Interpreted By: Quoc Wilkinson MD, 10/19/2021 7:10 AM XR CHEST PORTABLE Result Date: 10/22/2021 Exam: Chest x-ray Comparison 10/19/2021 INDICATION: Recent hospital discharge for pneumonia. Dyspnea. TECHNIQUE: One view FINDINGS: The heart is enlarged. Median sternotomy and valve replacement. Central pulmonary vessels are partially obscured but are within normal limits for size. The right lung is clear. Indistinctness of the left lung base and hemidiaphragm. Uncertain significance with portable technique and superimposed soft tissues. There could be a component of lung opacification or smallpleural effusion present. No substantial change from the prior exam allowing for differences in patient positioning. The remainder of the left lung is clear. IMPRESSION: 1. Enlarged heart. 2. Artifact versus some mild increased density in the left lung base. Referred By: Interpreted By: Neel Basurto MD, 10/22/2021 6:20 PM XR CHEST PORTABLE Result Date: 10/15/2021 Examination: Chest 1 view portable History: Chest pain DATE/TIME: 10/15/2021 1:17 PM Comparison: NoneTechnique: AP upright portable view of the chest was obtained. Findings: Sternotomy. Heart size andmediastinal contours are normal. Borderline pulmonary vasculature. No pulmonary consolidation, pleural effusion or pneumothorax. No acute osseous abnormality. Old left clavicle fracture. Impression: 1. No acute infiltrate. 2. Borderline vascular congestion. Referred By: Interpreted By: Estevan Martines MD, 10/15/2021 1:33 PM USE ECHOCARDIOGRAM W CON Result Date: 10/16/2021 Echocardiography Report Pat.Name: ANA MARIA BOBO Pat.ID: [id number] St.Date: 10/16/2021 Exam Time: 3:01:00 PM Study Type:ECHO WITH CARDIAC DOPPLER COMP Height: 64in Weight: 183.62lb BSA: 1.89 m2DOB Age: 3 1945,76Y Sex: FEMALE BP: 115/57 HR: 91 bpm Sonogrphr: Becky Martel [facility] Pat. Stat.: Inpatient Room: [facility] Reason for Study: Aortic valve replacement, Congestive heart failure, Dyspnea on exertion, Murmur History / Clinical: Chest pain. Calf injury, redness, edema. PMH, cad, dm, htn, ckd, hld, copd Procedures: 2D, M- mode, Doppler, Color Flow, Definity was used to enhance endocardial definition., The study quality is technically difficult. Race: W ++++++++++++++++++++++++++++++++++++ SUMMARY: ++++++++++++++++++++++++++++++++++++ The left ventricular size is normal. Estimated left ventricular ejection fraction is 40-45%. Moderate concentric left ventricular hypertrophy. Left ventricular diastolic function is abnormal (grade 2 - pseudonormal pattern). ?Moderate global hypokinesis is noted. The right ventricular size is normal. Right ventricular systolic function is moderately depressed. A mechanical valve is in the aortic position with post-deployment peak velocity of3.53m/sec, mean gradient of 31mmHg and a calculated YADIRA of 1.10cm2. Right ventricular systolic pressure is 40-50 mmHg suggestive of mild to moderate pulmonary hypertension. Mild to moderate tricuspidregurgitation. Moderate mitral regurgitation. ++++++++++++++++++++++++++++++++++++ FINDINGS: ++++++++++++++++++++++++++++++++++++ LV: The left ventricular size is normal. Estimated left ventricular ejection fraction is 40-45%. Moderate concentric left ventricular hypertrophy. Left ventricular diastolic function is abnormal (grade 2 - pseudonormal pattern). WM: Moderate global hypokinesis is noted. RV: The right ventricular size is normal. Right ventricular systolic function is moderately depressed. IVS: No evidence of ventricular septal defect. LA: The left atrial size is mildly enlarged. The left atrial volume is mildly increased (34- 41ml/M2). RA: Right atrial size is mildly enlarged. IAS: Atrial septum appears intact. DENICE: No evidence of pericardial effusion. AO: Normal aortic root. PA: Estimated right atrial pressure of 15 mmHg. SVn: Inferior vena cava is mildly enlarged. Inferiorvena cava shows <50% collapse with respiration consistent with elevated right atrial pressure. AV: Mechanical prosthetic aortic valve seen. A trace of denice-prosthetic aortic valve regurgitation. Amechanical valve is in the aortic position with post-deployment peak velocity of 3.53m/sec, mean gradient of 31mmHg and a calculated YADIRA of 1.10cm2. MV: Moderate mitral regurgitation. No evidence ofmitral stenosis. PV: No evidence of pulmonic valve stenosis. Mild pulmonic regurgitation. TV: Mild to moderate tricuspid regurgitation. Right ventricular systolic pressure is 40-50 mmHg suggestive of mild to moderate pulmonary hypertension. No evidence of tricuspid valve stenosis. ++++++++++++++++++++++++++++++++++++ MEASUREMENTS: ++++++++++++++++++++++++++++++++++++ DOPPLER LVOT LVOTpkPG 8 mmHg LVOTmnPG 4 mmHg LVOTpkVel 141 cm/s (70-110)+* LVOT SV 83 ml LVOT TVI 26.3 cm Right Atrium RA Press 15 mmHg Ayala's Disk 20 AV Forward Flow AV TVI 51.2 cm AV pkPG 37 mmHg AV pkVel 305 cm/s (100-170)+* Area (TVI) 1.61 cm2 (3-5)* AV mnPG 21 mmHg Area (Randall) 1.45 cm2 (3-5)* AV Regurg Flow AV pkVel 381cm/s AV P1/2t 290 ms AV pkPG 58 mmHg MV Forward Flow MV DeTm 257 ms MV pkPG 9 mmHg MV mnPG 3 mmHg MV pkE 134 cm/s (60-130)+* PV Forward Flow PV pkVel 96.4 cm/s (60-90)* PV AC 109 ms PV pkPG 4 mmHg TVRegurg Flow TV pkPG 26 mmHg TV pkVel 253 cm/s (30-70)+* Right Ventricle RVsys P 41 mmHg Right Ventricle 5.32 cm/s Lat E' Lat e 7.2 cm/s Lat E/E' Lat E/e 18.6 Med E' Med e 4.94 cm/s Med E/E' Med E/e 27.1 Aortic Valve Aortic Valve Ar 0.85 Aortic Valve Ve 0.46 PV Antegrade Flow Acceleration Sl 573 cm/s2 TAPSE Distance 8 mm 2D Left Ventricle LVIDd 4.8 cm (3.6-5.2)+ LV ESV 52.6 ml LVIDs 3.63 cm (2.3-3.9)+ LV ESV 46.2 ml LngAxd 7.03 cm LVESV BP 50.5 ml LngAxd 7.4 cm LV EF 36.1 % LV EDV 82.2 ml LV EF 42.7 % LV EDV 80.4 ml LV EF BP 38.7 % LVEDV BP 82.4 ml LV SV 29.6 ml LngAxs 6.96 cm LV SV 34.4 mlLngAxs 7.36 cm LV SV BP 31.9 ml LVPW LVPWd 1.36 cm Ventricular Septum IVSd 1.32 cm Left Atrium LA VOLBP 72.9 ml Aorta Ao Rtd 2.4 cm LVOT LVOT 2 cm LVOTArea 3.14 cm2 Ratios IVS LA Biplane LAVol I BP 38.6 ml/m2 RA Single Plane Right Atrium MO 13.4 mm Right Atrium Sy 51.1 ml Right Atrium Sy 64.4 mm Right Atrium Sy 27 ml/m2 Right Atrium Sy 20 cm2 Right Ventricle Right Ventricle 27 mm Right Wsizylebv53.8 mm Major [facility] 77.7 mm Signed 10/16/2021 06:42 PM Tere Cedillo M.D. EKG: Results for orders placed or performed during the hospital encounter of 10/22/21 ECG [address] [facility] Test Date: 2021-10-22 Pat Name: ANA MARIA BOBO Department: 41 Room: [facility] Gender: Female Credit Report Checker: : 1945 Requested By: SANJANA BATES Order Number: [id number] Reading MD: Sanjana Ludwig Measurements Intervals [facility] Rate: 86 P: MS: 0 QRS: -37 QRSD: 160 T: 98 QT: 411 QTc: 494 Interpretive Statements ATRIAL FIBRILLATION LEFT AXIS DEVIATION [QRS AXIS < -30] LEFT BUNDLE BRANCH BLOCK [120+ ms QRS DURATION, 80+ ms Q/S IN V1/V2, 85+ ms R IN I/aVL/V5/V6] Compared to ECG 10/15/2021 17:09:13 Left-axis deviation now present Assessment & Plan NSTEMI Cardiology consulted Trend trop F/u outpatient with Dr. Paredes for ischemic eval once stable Start ASA 81 mg per cardiology Telemetry 10/25 resume lasix in AM tomorrow with BB per cardiology if BP stable Hypotension: Suspect over diuresis and poor oral intake following discharge as contributing factors. Patient status post 2 L normal saline given in the emergency room. We will hold on further IV fluid resuscitation at this time. Holding outpatient oral antihypertensive medications and diuretics. F/u BMP Monitor VS and pulse ox Fall precautions 10/25 resume lasix and BB tomorrow AM per cardiology if BP stable ?? Acute on chronic renal Failure: suspect seconday to hypotension possible diuresis and continued administration of nephrotoxic medications and reduced oral intake. Medications reviewed will hold nephrotoxic medications. UA pending. status post 2 L normal saline to achieve and maintain euvolemia. Given history of heart failure monitor volume status closely avoid hypotension. Renally dose medications. Consider nephrology consult if not improved with correction of precipitating factors. F/u BMP -had held diuresis, Monitor Cr , No further IV fluids at this time 10/25 resume lasix in AM tomorrow per cardiology Chronic heart failure reduced ejection fraction: Patient appears dry to euvolemic on exam currently holding outpatient antihypertensives and diuretic medications and nephrotoxic medications. Resume as indicated. Continue cardiac medications as indicated. ?? CAP: Patient afebrile no leukocytosis we will continue current dose antibiotics pulmonary toilet pulm consulted F/u sputum culture ?? Acute hypoxic respiratory failure: Secondary to the above patient continues to be maintained on 2 L nasal cannula 1 L while sleeping patient also found to have respiratory acidosis started BiPAP, now dc'd f/u repeat ABG pulm consulted Improving Weaned to RA per pulm on 10/25 ?? A. fib currently rate controlled stroke risk reduction with Coumadin INR goal 2.5-3.5 for mechanical valve, pharmacy to dose. ?? Hyperlipidemia: Continue statin ?? Hypothyroidism continue methimazole follow-up PCP consider endocrinology referral. ?? GERD: Continue PPI Right MCA aneurysm Noted on CTA Also noted per radiology on prior imaging, though direct comparison not available Neurology consulted F/u MRI per yashira F/u EEG ?? - DVT prophylaxis: Coumadin - Diet/IVF: Cardiac - Code status: Full code - Disposition: Telemetry inpatient Plan of care discussed with patient, nurse, pillowcase turner, pulm, family at bedside. ASHU DENG MD * Suleman Dueñas MD - 10/25/2021 10:34 AM CDT Pulmonary Consultation Note History Chief Complaint Patient presents with ??? Weakness Pt was Dced from here yesterday where she was treated for PNA. Arrives here with increased weakness. States she could hardly get herself off the commode. Ana Maria Bobo is a 76-year-old female who has past medical history significant for atrial fibrillation on warfarin, atrial flutter, coronary disease, hyperlipidemia, pretension, diabetes mellitus. 10/15/2021 - 10/22/2021 ALEX treated for chest pain, concern for pneumonia 10/22/2021: Presented to the emergency department with increasing weakness. Found to be hypotensive and hypoxic 10/23/2021: Required BiPAP this day due to respiratory acidosis, requiring 2 L nasal cannula when off BiPAP 10/24/2021: Pulmonary medicine consulted today for further recommendations. At the time my visit sheis alert but having a difficult time recalling what happened when she came into the hospital. She notes that she was having some abdominal discomfort. She has shortness of breath, unclear if it is new but states that when she walks around she can only walk a couple of feet for which she would have to stop to catch her breath. At times she does feel short of breath at rest as well. Denies any history of known pulmonary disease, that being said she does have an albuterol inhaler that she uses at home. On average 3 times weekly. No known prior diagnosis of asthma. Denies history of being diagnosed as COPD. Denies significant cough or phlegm production. No wheezing. Denies oxygen use at home. 10/25/2021: Pt resting comfortably in bed. Just returned from CT. On 2L NC, SPO2 99%. Pt endorses feeling a little better. No new complaints. Essentially a never smoker, states that she smoked for 1 week when she was younger. 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 Anxiety ??? Atrial flutter (CMS/HCC) ??? Cataract ??? Chronic anticoagulation due to mechanical heart valve ??? Chronic pain ??? Diabetes mellitus (CMS/HCC) ??? H/O mechanical aortic valve replacement 2003 ??? Hypertension Past Surgical History: Procedure Laterality Date ??? REPAIR HEART WOUND Social History Tobacco Use ??? Smoking status: Never Smoker ??? Smokeless tobacco: Never Used ??? Tobacco comment: non smoker Vaping Use ??? Vaping Use: Never used Substance Use Topics ??? Alcohol use: Not Currently ??? Drug use: Yes Types: Hydrocodone Comment: chronic pain Family History Problem Relation Name Age of Onset ??? Heart Father ??? Diabetes Father ??? Heart Mother ??? azithromycin 500 mg Oral Daily ??? cefdinir 300 mg Oral Daily ??? gabapentin 300 mg Oral BID ??? lidocaine 1 patch Transdermal Q24H ??? methIMAzole 5 mg Oral Daily ??? pantoprazole EC 20 mg Oral Daily ??? rosuvastatin 5 mg Oral Nightly at bedtime ??? senna-docusate 1 tablet Oral Nightly at bedtime ??? venlafaxine XR 150 mg Oral Daily with breakfast ??? warfarin (COUMADIN) pharmacy to dose Oral See Admin Instructions ??? warfarin 5 mg Oral Once acetaminophen, albuterol sulfate HFA, ALPRAZolam, dextrose 10 % bolus, glucagon, glucose, HYDROcodone-acetaminophen, xkexqlygg-onvtnykl-dudmrekrrfe, naLOXone, ondansetron, polyethylene glycol Allergies Allergen Reactions ??? Atorvastatin Leg Pain Leg pain/cramps. Resolved after stopping. ??? Tape Contact Dermatitis ??? Bacitracin Other (see comment) ??? Benzalkonium Other (see comment) ??? Gramicidin Other (see comment) ??? Hydrocortisone Other (see comment) ??? Neomycin Other (see comment) ??? Polymyxin B Other (see comment) Review of Systems Constitutional: Positive for malaise/fatigue. Negative for chills, fever and weight loss. HENT: Negative for congestion, ear pain, hearing loss and nosebleeds. Eyes: Negative for blurred vision, double vision and redness. Respiratory: Positive for shortness of breath. Negative for cough, hemoptysis, sputum production and wheezing. Cardiovascular: Negative for chest pain, palpitations, orthopnea, leg swelling and PND. Gastrointestinal: Negative for heartburn, nausea and vomiting. Genitourinary: Negative for dysuria, frequency and urgency. Musculoskeletal: Negative for myalgias. Skin: Negative for rash. Neurological: Negative for dizziness, tingling and headaches. Endo/Heme/Allergies: Does not bruise/bleed easily. Psychiatric/Behavioral: Negative for depression and suicidal ideas. Physical Exam Filed Vitals: 10/24/21 2013 10/24/21 2242 10/25/21 0410 10/25/21 0857 BP: 116/59 129/59 118/47 (!) 134/118 Pulse: 107 118 104 106 Resp: Temp: 98.4 ??F (36.9 ??C) 98 ??F (36.7 ??C) 98.4 ??F (36.9 ??C) TempSrc: Oral Oral SpO2: 100% 98% 97% 99% Weight: 85.5 kg (188 lb 7.9 oz) Height: Physical Exam: General: Alert, pleasant, resting in bed, in NAD Neuro: Alert, appropriate Psych: Affect normal Head: NC, AT EENT: No Sinus tenderness to palpation, mallampati 2 Neck: Supple Lymph: No cervical lymphadenopathy Respiratory: Diminished breath sounds bilaterally, no focal crackles or wheezing. Cardiovascular: s1,s2, rrr, no audible murmur GI: soft, non-tender, non-distended, bs+ Musc: right wrist ROM wnl Ext: no edema, no clubbing Skin: No visible rashes, No visible tattoos Recent Labs Lab 10/23/21 0420 10/24/21 0351 10/25/21 0550 WBC 4.3* 6.0 4.6 RBC 2.60* 2.58* 2.49* HGB 8.1* 8.1* 7.9* HCT 27.3* 26.9* 26.4* MCV 105.0* 104.3* 106.0* MCH 31.2* 31.4* 31.7* MCHC 29.7* 30.1* 29.9* PLT 155 152 151 RDW 12.3 12.3 12.3 MPV 13.3* 13.9* 13.5* PERNEU 48.9 68.2 50.5 PERLYM 24.3 12.0 22.5 PERMON 21.3 17.1 21.9 LYMC 1.05 0.72* 1.03 MONOC 0.92* 1.03* 1.00* EOSC 0.20 0.11 0.19 BASOC 0.03 0.04 0.03 DTYPE AUTOMATED DIFFERENTIAL AUTOMATED DIFFERENTIAL AUTOMATED DIFFERENTIAL Recent Labs Lab 10/22/21 1817 10/22/21 2350 10/23/21 0420 10/23/21 1754 10/24/21 0351 10/25/21 0550 NA 135* < > 137 138 136 137 139 K 5.3* -- 4.9 -- 5.3* 5.0 CL 106 -- 110* -- 111* 112* CO2 25.6 -- 26.0 -- 24.5 25.8 AGAP 3.4* -- 1.0* -- 1.5* 1.2* BUN 59* -- 57* -- 60* 48* CR 2.19* -- 2.07* -- 1.89* 1.26* BUNCREATININ 26.9* -- 27.5* -- 31.7* 38.1* GLU 79 -- 77 -- 124* 73 CA 9.1 -- 8.5 -- 8.7 8.7 TP 6.1* -- -- -- -- 5.4* ALB 2.6* -- -- -- -- 2.4* TBIL 0.3 -- -- -- -- 0.5 ALKP 85 -- -- -- -- 81 AST 26 -- -- -- -- 17 ALT 24 -- -- -- -- 17 < > = values in this interval not displayed. Recent Labs Lab 10/23/2141910/24/21 0351 10/25/21 0550 INR 3.7 3.1 2.6 MICRO: 09/19/2021 SARS-CoV-2 negative PFTs: 02/17/2020 Full flow volume loops not available Per report the FEV1 was 81%, FVC 81%, FEV1/FVC ratio 70%. TLC 136%. RV 216%. Impression noting pattern suggestive of COPD, disagree, given the numbers in the report this is not obstructed CXR 10/22/2021 Images personally reviewed. Infiltrate or effusion in the left lung base compared to prior imaging CT Chest 10/24/2021 1. Stable four-chamber cardiomegaly with mild anemia. 2. Trace nondrainable dependent left pleural effusion and even less equivocal trace left pleural fluid. 3. Stable focal left lower lobe anterior basal subsegmental atelectasis and minimal dependent subsegmental atelectasis. 4. Scattered subtle interlobular septal thickening may indicate an element of fluid overload. 5. No other acute or chronic significant airspace or airway finding. 6. Other nonemergent, incidental, stable and potential chronic findings as discussed in the report body above. 10/15/2021 Images personally reviewed. Relatively clear lung diane bilaterally. No PE. 2D Echocardiogram 10/16/2021 Ejection fraction 40 to 45%. Grade 2 diastolic dysfunction. RVSP 40 to 50 mmHg Assessment 1. Acute combined hypoxic/hypercarbic respiratory failure 2. Left lower lobe infiltrate 3. Combined systolic and diastolic CHF Plan 1. Supplemental oxygen to maintain saturations 90 to 96%, wean as tolerated -->Currently off BiPAP, but if she does require BiPAP again, would recommend monitoring in the ICU rather than on the floor -->Encourage IS and Acapella 2. Obtain noncontrast CT scan of the chest for further clarification whether or not there is an infiltrate in the left lower lobe versus an effusion -->Trace pleural effusions bilaterally -->Left lower lobe subsegmental atelectasis -->Scattered areas of septal thickening suggesting possible fluid overload. 3. Agree with community-acquired pneumonia coverage -->Cefdenir Day 3/4 -->Azithromycin Day 2/3 --> Sputum for culture/gram stain if able 4. Obtain/maintain euvolemia -->Entertain resuming home lasix dose. Thank you for this consult. Please do not hesitate to contact me with any further questions or concerns. Bette Gregorio DNP, [employer] [facility] Pulmonary Medicine ADDENDUM Seen and examined independently; assessment/plan discussed at length, agree with above unless notedotherwise below: Assessment: 1. Acute combined hypoxic/hypercarbic respiratory failure -resolved, I was able to wean her to roomair today 2. Systolic and diastolic CHF Recommendations: - Supplemental oxygen if needed to maintain saturations 90 to 95% - Okay to finish out antibiotics, however no obvious evidence of pneumonia on CT chest - Obtain/maintain euvolemia - Advise against further use of BiPAP on the floor, likely will not need it anymore but if she doesdevelop recurrent hypercarbic respiratory failure would advise ICU monitoring Suleman Dueñas MD * Milad PortilloD - 10/25/2021 9:54 AM CDT Warfarin Pharmacy to Dose Day #3 Ordering Provider: Dr. Bell Indication: Afib, Mechanical AVR Goal INR: 2.5-3.5 Home Dose: 5 mg daily Date Dose INR H/H/PLT 10/22 held 3.7 9.2/31.1/178 10/23 held 3.7 8.1/27.3/155 10/24 4 mg 3.1 8.1/26.9/152 10/25 2.6 7.9/26.4/151 Diet: Cardiac, low cholesterol (25-30% intake charted on 10/23) Interacting Medications: - Azithromycin (started 10/24) - Cefdinir (home med) - methimazole (home med) A/P: Pt on home warfarin of 5 mg daily for Afib and mechanical AVR and is admitted with hypotension. 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 INR is on the lower end of therapeutic range at 2.6. Will increase warfarin to 5 mg again today in attempt to stop INR from downtrending further. (Pt may likely need a dose reduction in the future considering INR right above therapeutic range at admission and recent initiation of azithromycin.) Daily INRs ordered. Pharmacy will continue to follow and dose as appropriate. Thank you for the consult. * Kaylie Elliott, PT - 10/25/2021 9:43 AM CDT 10/25/21 0943 Therapy Visit Ordering Provider Ismael INGRAM [id number] PT orders recieved EMR reviewed. Patient off floor for testing, will attempt eval at later time/date. * Germania Hoover RN - 10/25/2021 12:30 AM CDT Problem: Reduced risk for falls/injury Goal: Reduced Risk for Falls/Injury Outcome: Progressing Goal: Reduced Risk of Confusion (Acute vs Chronic) Outcome: Progressing Problem: Pain Goal: Patient's pain/discomfort [...] and identify potential discharge needs. Outcome: Progressing * Ely Leiva, CHARLY - 10/24/2021 9:25 PM CDT Patient refused to wear the BiPAP this evening. She stated the Said she no longer needed it. Patient does not use a BiPAP outside the hospital. * Ashu Deng MD - 10/24/2021 11:33 AM CDT Hospitalist Daily Progress Note Subjective Pt reports LE weakness since recent hospital stay Reports shortness of breath improving Reports mild chest pain Denies confusion, palpitations, or dizziness Patient and family at bedside report history of left arm rotator cuff injury that was not repaired in the past, now with pain and weakness in the left arm that patient attributes to the BiPAP mask Objective Filed Vitals: 10/24/21 1136 10/24/21 1632 10/24/21 2013 10/24/21 2242 BP: 124/59 108/56 116/59 129/59 Pulse: 112 112 107 118 Resp: 18 20 Temp: 99.3 ??F (37.4 ??C) 98.4 ??F (36.9 ??C) TempSrc: Oral Oral SpO2: 99% 100% 98% Weight: Height: Intake/Output 24H Total: Intake/Output Summary (Last 24 hours) at 10/24/2021 2333 Last data filed at 10/24/2021 0500 Gross per 24 hour Intake -- Output 150 ml Net -150 ml Physical Exam: -GENERAL: No acute distress, Well nourished, on NC -HEAD: Normocephalic, Atraumatic -EYES: Extraocular movements intact, PERRL -LUNGS: Effort normal, diminished b/l bases, coarse breath sounds -CVS: Regular rate and rhythm, S1 and S2 normal -ABDOMEN: Soft, Non tender, Non distended -EXT: No edema, FROM -NEURO: Awake, alert, oriented, No gross neuro deficits -SKIN: No significant rashes, warm Medications ??? azithromycin 500 mg Oral Daily ??? cefdinir 300 mg Oral Daily ??? gabapentin 300 mg Oral BID ??? lidocaine 1 patch Transdermal Q24H ??? methIMAzole 5 mg Oral Daily ??? pantoprazole EC 20 mg Oral Daily ??? rosuvastatin 5 mg Oral Nightly at bedtime ??? senna-docusate 1 tablet Oral Nightly at bedtime ??? venlafaxine XR 150 mg Oral Daily with breakfast ??? warfarin (COUMADIN) pharmacy to dose Oral See Admin Instructions acetaminophen, albuterol sulfate HFA, ALPRAZolam, dextrose 10 % bolus, glucagon, glucose, HYDROcodone-acetaminophen, beuayfhvb-rkbjfqio-tlnjleqrobu, naLOXone, ondansetron, polyethylene glycol Labs, Imaging, Other Studies Recent Labs Lab 10/18/21 0454 10/19/21 0950 10/20/21 1101 10/21/21 0855 10/22/21 1817 10/23/21 0420 10/24/21 0351 WBC 4.7 4.6 5.1 4.0* 4.0* 4.3* 6.0 RBC 2.78* 2.89* 2.89* 2.83* 2.94* 2.60* 2.58* HGB 9.0* 9.2* 9.2* 8.7* 9.2* 8.1* 8.1* HCT 29.8* 30.4* 30.3* 29.4* 31.1* 27.3* 26.9* MCV 107.2* 105.2* 104.8* 103.9* 105.8* 105.0* 104.3* MCH 32.4* 31.8* 31.8* 30.7 31.3* 31.2* 31.4* MCHC 30.2* 30.3* 30.4* 29.6* 29.6* 29.7* 30.1* PLT 188 185 193 162 178 155 152 RDW 12.6 12.5 12.5 12.4 12.2 12.3 12.3 MPV 12.8* 12.8* 13.1* 13.1* 13.6* 13.3* 13.9* PERNEU -- 53.6 63.6 49.7 45.8 48.9 68.2 PERLYM -- 23.6 13.4 26.5 27.0 24.3 12.0 PERMON -- 17.6 17.9 18.0 19.9 21.3 17.1 LYMC -- 1.09 0.68* 1.06 1.07 1.05 0.72* MONOC -- 0.81 0.91* 0.72 0.79 0.92* 1.03* EOSC -- 0.18 0.21 0.18 0.22 0.20 0.11 BASOC -- 0.04 0.04 0.04 0.05 0.03 0.04 DTYPE MANUAL DIFFERENTIAL AUTOMATED DIFFERENTIAL AUTOMATED DIFFERENTIAL AUTOMATED DIFFERENTIAL AUTOMATED DIFFERENTIAL AUTOMATED DIFFERENTIAL AUTOMATED DIFFERENTIAL Recent Labs Lab 10/18/21 0454 10/19/21 0950 10/20/21 1101 10/21/21 0855 10/22/21 1817 10/22/21 2350 10/23/21 0420 10/23/21 1754 10/24/21 0351 NA 141 142 139 142 135* 137 137 138 136 137 K 5.1 4.8 4.9 5.1 5.3* -- 4.9 -- 5.3* CL 110* 110* 107 111* 106 -- 110* -- 111* CO2 27.2 29.0 29.8 28.8 25.6 -- 26.0 -- 24.5 AGAP 3.8* 3.0* 2.2* 2.2* 3.4* -- 1.0* -- 1.5* BUN 36* 44* 49* 47* 59* -- 57* -- 60* CR 1.44* 1.52* 1.68* 1.26* 2.19* -- 2.07* -- 1.89* BUNCREATININ 25.0 28.9* 29.2* 37.3* 26.9* -- 27.5* -- 31.7* GLU 77 90 133* 84 79 -- 77 -- 124* CA 9.7 9.8 9.7 9.9 9.1 -- 8.5 -- 8.7 TP -- -- -- -- 6.1* -- -- -- -- ALB -- -- -- -- 2.6* -- -- -- -- TBIL -- -- -- -- 0.3 -- -- -- -- ALKP -- -- -- -- 85 -- -- -- -- AST -- -- -- -- 26 -- -- -- -- ALT -- -- -- -- 24 -- -- -- -- No results for input(s): CHOL, TRI, HDL, LDL, HGBA1C, TSH in the last 168 hours. Recent Labs Lab 10/22/21 2350 10/23/21 0420 10/24/21 0351 INR 3.7 3.7 3.1 Recent Labs Lab 10/22/21181610/24/21 1353 10/24/21 1646 TROP 61* 35 32 Recent Labs Lab 10/22/21181610/22/21 2108 LACTICACID 0.8 <0.4 PROCT <0.05 -- Recent Labs Lab 10/24/21 0614 PH 7.33* PCO2 44.6 PO2 153* BICARBWB 23.5 BASEDEFICIT 2.5* No results found for this or any previous visit. Imaging ULTRASOUND GENERIC Result Date: 10/03/2021 Ordered by an unspecified provider. IMAGE GENERIC Result Date: 10/02/2021 Ordered by an unspecified provider. CT GENERIC Result Date: 10/03/2021 Ordered by an unspecified provider. CTA CHEST Result Date: 10/15/2021 Examination: CTA CHEST Clinical history: Chest pain Comparison: X-ray, same date DATE/TIME: 10/15/2021 5:13 PM Technique: Multiplanar images of the chest were obtained following the uneventful intravenous administration of 80 mL Isovue 370. 3D Post-processed images were reconstructed on an independent workstation. A dose lowering technique was used for this procedure, which may include, but is notlimited to, dose reduction technique, automated exposure control, the use of iterative reconstruction, and ALARA (As Low As Reasonably Achievable) / Image Gently techniques. Findings: There is adequate pulmonary artery opacification. No evidence of pulmonary embolism. Mild to moderate cardiomegaly.Aortic valve prosthesis. Coronary artery calcifications. No pericardial effusion. Thoracic aorta isnormal caliber. No mediastinal or hilar lymphadenopathy. No evidence of pneumonia or pulmonary edema. No pleural effusion or pneumothorax. Thoracic compression deformity of T6 with 75% anterior height loss, appearing chronic. There is minimal retropulsion into the spinal canal with Mild spinal canal narrowing. Sternotomy. Thoracic spondylosis. IMPRESSION: 1. No evidence of pulmonary embolism or other acute findings. 2. Cardiomegaly. 3. Otherchronic or nonurgent findings as described above. Referred By: Interpreted By: Estevan Martines MD, 10/15/2021 5:52 PM CTA HEAD Result Date: 10/23/2021 DATE: 10/22/2021 12:37 PM INDICATION: Right MCA aneurysm. EXAMINATION: CT angiography of the head. TECHNIQUE: CT angiography of the head was performed after uneventful intravenous administration of 80mL IOPAMIDOL 76 % IV SOLN. CT dose reduction techniques were utilized. Axial and 3-D/MIP images were reconstructed and reviewed. Additional 3-D reconstructions and/or postprocessing were performed on a separate dedicated 3-D workstation. A dose lowering technique was used for this procedure, which may include, but is not limited to, dose reduction technique, automated exposure control, the use of iterative reconstruction, and ALARA (As Low As Reasonably Achievable) / Image Gently techniques. COMPARISON: Report from catheter angiography performed 08/10/2020, images not available for direct comparison. FINDINGS: CTA HEAD: There is a 3-4 mm vascular outpouching at the right MCA bifurcation, corresponding to patient's known right MCA aneurysm. Scattered atherosclerotic calcifications seen along t he cavernous and supraclinoid ICA segments, but with less than 50% narrowing suggested. 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 Anterior communicating artery is patent. Otherwise the proximal portions of the anterior and middle cerebral arteries are patent. Atherosclerotic calcifications seen along the vertebral artery V4 segments, without significant narrowing. Basilar artery patent to the terminus. 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 Proximal portions of the posterior cerebral arteries, superior cerebellar arteries, and PICA branches are patent. Right posterior communicating artery not well- visualized. SOFTTISSUES: Small vessel disease and volume loss. Bilateral lens replacements. IMPRESSION: 1. 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 Similar findings described on prior catheter angiography examination 08/10/2020, though no images are available for direct comparison. Ordered By: SULEMAN WEBSTER Interpreted By: Dale Brush MD, 10/23/2021 9:21 AM USV NEGRITA DUPLEX LOW EXT RT Result Date: 10/21/2021 VENOUS DUPLEX IMAGING RIGHT LOWER EXTREMITY VASCULAR LAB Pat.Name: ANA MARIA BOBO Pat.ID: [id number] .Date: 10/15/2021 Exam Time: 4:09:00 PM Study Type:TOYA VS Venous Duplex Leg Rt Age: 3 1945,76Y Sex: FEMALE Sonogrphr: Diana Bronson RVT Pat. Stat.:Outpatient Room: ER History / Clinical:Chest pain. Calf injury, redness, edema. PMH, cad, dm, htn, ckd, hld, copd Procedures: Carrillo scale, Color Doppler imaging, Doppler Spectral Analysis Race: W ++++++++++++++++++++++++++++++++++++ SUMMARY: ++++++++++++++++++++++++++++++++++++ Right leg: There are NO apparent, deep or superficial vein, ACUTE character venous filling defects visualized in the femoral, popliteal, deep calf or proximal saphenous veins. Resting venous flow is normal phasic proximally. No valve reflux with compressionmaneuvers is detected in the femoral and popliteal veins. Left leg LIMITED: Resting venous flow is normal phasic at the common femoral. No valve reflux with compression maneuvers is detected in the common femoral vein. CONCLUSION: Normal study right lower extremity, with no evidence of acute deep or superficial vein thrombosis. There is no significant reflux detected. ++++++++++++++++++++++++++++++++++++ FINDINGS: ++++++++++++++++++++++++++++++++++++ Signed 10/21/2021 12:57 PM José Kaiser M.D. XR CHEST PA+LAT Result Date: 10/19/2021 Examination: Chest x-ray 2 view Exam Date/Time: 10/19/2021 7:00 AM Reason For Exam: chf Comparison: 10/15/2021 chest radiograph Technique: PA and lateral views of the chest were obtained. Findings: Heart size prominent but stable from prior study. Post sternotomy changes again seen including fractured wires. Atherosclerotic aorta. Increased AP dimensional airspace and flattening of diaphragms. Pulmonary vascularity stable from prior study. Interval worsening of opacities at the lung bases more so on the left obscuring diaphragm shadow on frontal view. Upper lungs clear. ======== IMPRESSION: ======== 1. Developing opacity at the anterior left lung base may be infiltrate or atelectasis. Stable interval appearance of the chest otherwise. Referred By: Interpreted By: Quoc Wilkinson MD, 10/19/2021 7:10 AM XR CHEST PORTABLE Result Date: 10/22/2021 Exam: Chest x-ray Comparison 10/19/2021 INDICATION: Recent hospital discharge for pneumonia. Dyspnea. TECHNIQUE: One view FINDINGS: The heart is enlarged. Median sternotomy and valve replacement. Central pulmonary vessels are partially obscured but are within normal limits for size. The right lung is clear. Indistinctness of the left lung base and hemidiaphragm. Uncertain significance with portable technique and superimposed soft tissues. There could be a component of lung opacification or smallpleural effusion present. No substantial change from the prior exam allowing for differences in patient positioning. The remainder of the left lung is clear. IMPRESSION: 1. Enlarged heart. 2. Artifact versus some mild increased density in the left lung base. Referred By: Interpreted By: Neel Basurto MD, 10/22/2021 6:20 PM XR CHEST PORTABLE Result Date: 10/15/2021 Examination: Chest 1 view portable History: Chest pain DATE/TIME: 10/15/2021 1:17 PM Comparison: NoneTechnique: AP upright portable view of the chest was obtained. Findings: Sternotomy. Heart size andmediastinal contours are normal. Borderline pulmonary vasculature. No pulmonary consolidation, pleural effusion or pneumothorax. No acute osseous abnormality. Old left clavicle fracture. Impression: 1. No acute infiltrate. 2. Borderline vascular congestion. Referred By: Interpreted By: Estevan Martines MD, 10/15/2021 1:33 PM USE ECHOCARDIOGRAM W CON Result Date: 10/16/2021 Echocardiography Report Pat.Name: ANA MARIA BOBO HANNA Wood.ID: [id number] St.Date: 10/16/2021 Exam Time: 3:01:00 PM Study Type:ECHO WITH CARDIAC DOPPLER COMP Height: 64in Weight: 183.62lb BSA: 1.89 m2 Age: 3 1945,76Y Sex: FEMALE BP: 115/57 HR: 91 bpm Sonogrphr: Becky Martel [facility] Pat. Stat .:Inpatient Room: [facility] Reason for Study: Aortic valve replacement, Congestive heart failure, Dyspnea on exertion, Murmur History / Clinical: Chest pain. Calf injury, redness, edema. PMH, cad, dm, htn, ckd, hld, copd Procedures: 2D, M- mode, Doppler, Color Flow, Definity was used to enhance endocardial definition., The study quality is technically difficult. Race: W ++++++++++++++++++++++++++++++++++++ SUMMARY: ++++++++++++++++++++++++++++++++++++ The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 Right ventricular systolic pressure is 40-50 mmHg suggestive of m ild to moderate pulmonary hypertension. No evidence of tricuspid valve stenosis. ++++++++++++++++++++++++++++++++++++ MEASUREMENTS: ++++++++++++++++++++++++++++++++++++ DOPPLER LVOT LVOTpkPG 8 mmHg LVOTmnPG 4 mmHg LVOTpkVel 141 cm/s (70-110)+* LVOT SV 83 ml LVOT TVI 26.3 cm Right Atrium RA Press 15mmHg Ayala's Disk 20 AV Forward Flow AV TVI 51.2 cm AV pkPG 37 mmHg AV pkVel 305 cm/s (100-170)+*Area (TVI) 1.61 cm2 (3-5)* AV mnPG 21 mmHg Area (Randall) 1.45 cm2 (3-5)* AV Regurg Flow AV pkVel 381 cm/s AV P1/2t 290 ms AV pkPG 58 mmHg MV Forward Flow MV DeTm 257 ms MV pkPG 9 mmHg MV mnPG 3 mmHg MV pkE 134 cm/s (60-130)+* PV Forward Flow PV pkVel 96.4 cm/s (60-90)* PV AC 109 ms PV pkPG 4 mmHg TV Regurg Flow TV pkPG 26 mmHg TV pkVel 253 cm/s (30-70)+* Right Ventricle RVsys P 41 mmHg Right Ventricle 5.32 cm/s Lat E' Lat e 7.2 cm/s Lat E/E' Lat E/e 18.6 Med E' Med e 4.94 cm/s Med E/E' Med E/e 27.1 Aortic Valve Aortic Valve Ar 0.85 Aortic Valve Ve 0.46 PV Antegrade Flow Acceleration Sl 573 cm/s3XUEPP Distance 8 mm 2D Left Ventricle LVIDd 4.8 cm (3.6-5.2)+ LV ESV 52.6 ml LVIDs 3.63 cm (2.3-3.9)+ LV ESV 46.2 ml LngAxd 7.03 cm LVESV BP 50.5 ml LngAxd 7.4 cm LV EF 36.1 % LV EDV 82.2 ml LV EF 42.7 % LV EDV 80.4 ml LV EF BP 38.7 % LVEDV BP 82.4 ml LV SV 29.6 ml LngAxs 6.96 cm LV SV 34.4 ml LngAxs 7.36 cm LV SV BP 31.9 ml LVPW LVPWd 1.36 cm Ventricular Septum IVSd 1.32 cm Left Atrium LA VOLBP 72.9 ml Aorta Ao Rtd 2.4 cm LVOT LVOT 2 cm LVOTArea 3.14 cm2 Ratios IVS LA Biplane LAVol I BP 38.6ml/m2 RA Single Plane Right Atrium MO 13.4 mm Right Atrium Sy 51.1 ml Right Atrium Sy 64.4 mm RightAtrium Sy 27 ml/m2 Right Atrium Sy 20 cm2 Right Ventricle Right Ventricle 27 mm Right Ventricle 32.8 mm Major [facility] 77.7 mm Signed 10/16/2021 06:42 PM Tere Cedillo M.D. EKG: Results for orders placed or performed during the hospital encounter of 10/22/21 ECG [address] [facility] 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 Patient status post 2 L normal saline given in the emergency room. We will hold on further IV fluid resuscitation at this time. Holding outpatient oral antihypertensive medications and diuretics. Repeat BMP in the morning monitor blood pressure resume outpatient medications as indicated. ?? Acute on chronic renal Failure: suspect seconday to hypotension possible diuresis and continued administration of nephrotoxic medications and reduced oral intake. Medications reviewed will hold nephrotoxic medications. UA pending. Field status post 2 L [place] saline to achieve and maintain euvolemia. Given history of heart failure monitor volume status closely avoid hypotension. Renally dose medications. Consider nephrology consult if not improved with correction of precipitating factors. Repeat BMP in the morning -hold diuresis, Monitor Cr , No further IV fluids at this time ?? heart failure reduced ejection fraction: Patient appears dry to euvolemic on exam currently holding outpatient antihypertensives and diuretic medications and nephrotoxic medications. Resume as indicated. Continue cardiac medications as indicated. ?? Communicare pneumonia: Patient afebrile no leukocytosis we will continue current dose antibiotics pulmonary toilet ?? Acute hypoxic respiratory failure: Secondary to the above patient continues to be maintained on 2 L nasal cannula 1 L while sleeping patient also found to have respiratory acidosis we will start BiPAP repeat ABG in the morning. ?? A. fib currently rate controlled stroke risk reduction with Coumadin INR pending pharmacy to dose. ?? Hyperlipidemia: Continue statin ?? Hypothyroidism continue methimazole follow-up PCP consider endocrinology referral. ?? GERD: Continue PPI ?? 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 Lora Benjamin MD * [place] Dodson PharmD - 10/23/2021 12:33 AM CDT Warfarin Pharmacy to Dose Day #1 Ordering Provider: Dr. Bell Indication: AFib Goal INR: 2-3 Home Dose: 5 mg daily Date Dose INR H/H/PLT 10/22 3.7 31.1/9.2/178 Diet: Cariac Interacting Medications: - Cefdinir A/P: Pt on home warfarin of 5 mg daily for AFib is admitted with hypotension. INR is currently supratherapeutic at 3.7. Last dose of warfarin taken on 10/21 of 5 mg at home. Will not give a dose tonight and re-dose, as appropriate, once INR is closer to goal of 2-3. Daily INRs are ordered. Pharmacy will continue to follow and dose as appropriate. Thank you for the consult. * Tresa Lemons RN - 10/22/2021 11:25 PM CDT Problem: Reduced risk for falls/injury Goal: [...] plans and interventions as needed. Outcome: Progressing documented in this encounter H&P Notes * Gunner Vargas MD - 10/22/2021 8:10 PM CDT ATTENDING: Gunner Bell MD PRIMARY CARE PROVIDER: Suleman Webster DO CC: Weakness HPI: Ana Maria Bobo is a 76-year-old female with past medical history significant for A-fib anticoagulated with warfarin, atrial flutter, CAD, HLD, HTN, diabetes mellitus who presents for evaluation of weakness. Patient was discharged from here yesterday after being admitted on 10/15 for pneumonia. Patient states she is having increased weakness since returning home and she has been unable to stand or ambulate. She says she was hardly able to get herself off the commode today. Patient notes she is having some shortness of breath. Patient is staying with her friend while she recovers but normally lives alone. Patient complains of weakness and shortness of breath. Patient denies fever, body aches, or chills. At time of my evaluation patient is resting comfortably in bed. He states he feels improved after receiving IV fluids. He denies chest pain shortness of breath at this time. She reports medication compliance insert discharge. Past Medical History: Diagnosis Date ??? Aneurysm [...] on file Housing Stability: Not on file Family History Problem Relation Name Age of Onset ??? Heart Father ??? Diabetes Father ??? Heart Mother Prior to Admission medications Medication Sig Start Date End Date Taking? Authorizing Provider cefdinir (OMNICEF) 300 MG Cap capsule Take 1 capsule (300 mg total) by mouth 2 (two) times daily for 4 days. 10/22/21 10/26/21 Yes Jonathan Gaytan MD Cholecalciferol (VITAMIN D3) 25 MCG (1000 UT) Cap Take 1,000 Units by mouth daily. Yes Doc Abstract FEROSUL 325 (65 Fe) MG tablet Take 1 tablet by mouth once daily Patient taking differently: Take 325 mg by mouth daily with breakfast. 10/07/21 Yes Suleman Webster DO fluticasone propionate 50 MCG/ACT nasal spray 2 sprays by Nasal route daily. Yes Doc Abstract furosemide (LASIX) 40 MG tablet Take 1 tablet (40 mg total) by mouth daily for 30 days. 10/22/21 11/21/21 Yes Jonathan Gaytan MD gabapentin 300 MG capsule Take 1 capsule (300 mg total) by mouth 2 (two) times daily. 07/16/20 Yes Juan Pablo Dominguez MD LISINOPRIL 40 MG tablet Take 1 tablet by mouth once daily Patient taking differently: Take 40 mg by mouth daily. 03/11/21 Yes Suleman Webster DO methIMAzole 5 MG tablet Take 1 tablet (5 mg total) by mouth daily. 08/30/21 Yes Panda Moreno MD metoprolol succinate ER 25 MG 24 hr tablet Take 1 tablet (25 mg total) by mouth daily. 09/02/21 Yes Suleman Webster DO omeprazole (PRILOSEC) 20 MG capsule Take 1 capsule by mouth once daily 10/07/21 Yes Suleman Webster DO rosuvastatin 5 MG tablet Take 1 tablet (5 mg total) by mouth nightly at bedtime. 08/14/21 Yes Jonathan Webster DO VENLAFAXINE XR 150 MG 24 hr capsule Take 1 capsule by mouth once daily Patient taking differently: Take 150 mg by mouth daily. 06/17/21 Yes Suleman Webster DO warfarin (COUMADIN) 5 MG tablet Take 5 mg by mouth daily. Yes Doc Abstract acetaminophen (TYLENOL) 500 MG tablet Take 500 mg by mouth daily as needed. 08/17/20 Doc Abstract albuterol sulfate HFA 108 (90 Base) MCG/ACT inhaler Inhale 2 puffs into the lungs every 6 (six) hours as needed for Wheezing. 10/10/21 Suleman Webster, DO ALPRAZolam (XANAX) 0.25 MG tablet Take 1 tablet (0.25 mg total) by mouth 2 (two) times daily as needed for Anxiety. 10/10/21 Suleman Webster, DO HYDROcodone-acetaminophen (NORCO) 10-325 MG tablet Take 1 tablet by mouth every 6 (six) hours as needed for Pain. Indications: Chronic Pain Do not take with alprazolam. No further refills until seen in office. 09/26/21 Suleman Webster, DO lidocaine 5 % Apply pain patch to affected area. Change after 12 hours. 08/30/20 Trina Hoffman NP Allergies Allergen Reactions ??? Atorvastatin Leg Pain Leg pain/cramps. Resolved after stopping. ??? Tape Contact Dermatitis ??? Bacitracin Other (see comment) ??? Benzalkonium Other (see comment) ??? Gramicidin Other (see comment) ??? Hydrocortisone Other (see comment) ??? Neomycin Other (see comment) ??? Polymyxin B Other (see comment) ROS: 10 point ROS Negative except for as noted in HPI. PHYSICAL EXAM: No intake or output data in the 24 hours ending 10/22/212009 Patient Vitals for the past 24 hrs: BP Temp Temp src Pulse Resp SpO2 Height Weight 10/22/21 1945 91/50 -- -- 73 -- -- -- -- 10/22/21 1900 110/49 -- -- 77 -- -- -- -- 10/22/21 1859 89/39 -- -- 84 14 96 % -- -- 10/22/21 1830 (!) 79/50 -- -- 88 14 96 % -- -- 10/22/21 1750 (!) 80/52 98.5 ??F (36.9 ??C) Temporal 84 20 94 % 5' 4 (1.626 m) 83.9 kg (185 lb) Constitutional: Frail appearing elderly female, No acute distress, Non-toxic appearance. HENT: Normocephalic, Atraumatic, Bilateral external ears normal, Oropharynx moist, No oral exudates, Nose normal. Eyes:, EOMI, Conjunctiva normal, No discharge. Neck- Normal range of motion, No tenderness, Supple, No stridor. Respiratory: : Bilaterally clear to auscultation with no rales, rhonchi, or wheezes. Good aeration.No accessory muscle use. Cardiovascular: S1, S2 present, regular rate and rhythm. Positive murmur no, rubs, or gallops. Bilateral radial and dorsalis pedis pulses +2. No pedal edema. GI: Bowel sounds normal, Soft, No tenderness or guarding, No masses, No pulsatile masses. Musculoskeletal: Intact distal pulses, No edema, No tenderness, No cyanosis, No clubbing. Good range of motion in all major joints. No tenderness to palpation or major deformities noted. Neurologic: Alert & oriented x 3, Cranial nerves II-XII grossly intact. Normal motor function, Normal sensory function, No focal deficits noted. Psychiatric: Affect normal, Judgment normal, Mood normal Labs: Lab Results Component Value Date CHOL 200 (H) 08/29/2021 TRI 108 08/29/2021 HDL 71 08/29/2021 NA 135 (L) 10/22/2021 K 5.3 (H) 10/22/2021 CL 106 10/22/2021 CO2 25.6 10/22/2021 BUN 59 (H) 10/22/2021 CR 2.19 (H) 10/22/2021 CA 9.1 10/22/2021 GLU 79 10/22/2021 AGAP 3.4 (L) 10/22/2021 TP 6.1 (L) 10/22/2021 ALB 2.6 (L) 10/22/2021 AST 26 10/22/2021 ALT 24 10/22/2021 WBC 4.0 (L) 10/22/2021 HGB 9.2 (L) 10/22/2021 PLT 178 10/22/2021 HGBA1C 6.1 08/29/2021 TSH <0.005 (L) 10/17/2021 INR Date Value Ref Range Status 10/21/2021 3.3 Final Comment: Recommended INR Therapeutic Goals: 2.0-3.0 Routine Therapy 2.5-3.5 Mechanical Prosthetic Valves (High Risk) Imaging: ULTRASOUND GENERIC Result Date: 10/03/2021 Ordered by an unspecified provider. IMAGE GENERIC Result Date: 10/02/2021 Ordered by an unspecified provider. CT GENERIC Result Date: 10/03/2021 Ordered by an unspecified provider. CTA CHEST Result Date: 10/15/2021 Examination: CTA CHEST Clinical history: Chest pain Comparison: X-ray, same date DATE/TIME: 10/15/2021 5:13 PM Technique: Multiplanar images of the chest were obtained following the uneventful intravenous administration of 80 mL Isovue 370. 3D Post-processed images were reconstructed on an independent workstation. A dose lowering technique was used for this procedure, which may include, but is not limited to, dose reduction technique, automated exposure control, the use of iterative reconstruction, and ALARA (As Low As Reasonably Achievable) / Image Gently techniques. Findings: There is adequate pulmonary artery opacification. No evidence of pulmonary embolism. Mild to moderate cardiomegaly. Aortic valve prosthesis. Coronary artery calcifications. No pericardial effusion. Thoracic aorta is normal caliber. No mediastinal or hilar lymphadenopathy. No evidence of pneumonia or pulmonary edema. No pleural effusion or pneumothorax. Thoracic compression deformity of T6 with 75% anterior heightloss, appearing chronic. There is minimal retropulsion into the spinal canal with Mild spinal canal narrowing. Sternotomy. Thoracic spondylosis. IMPRESSION: 1. No evidence of pulmonary embolism or other acute findings. 2. Cardiomegaly. 3. Otherchronic or nonurgent findings as described above. Referred By: Interpreted By: Estevan Martines MD, 10/15/2021 5:52 PM USV NEGRITA DUPLEX LOW EXT RT Result Date: 10/21/2021 VENOUS DUPLEX IMAGING RIGHT LOWER EXTREMITY VASCULAR LAB Pat.Name: ANA MARIA BOBO HANNA Pat.ID: [id number] St.Date: 10/15/2021 Exam Time: 4:09:00 PM Study Type:TOYA VS Venous Duplex Leg Rt Age: 3 1945,76Y Sex: FEMALE Sonogrphr: Diana Bronson RVT Pat. Stat.:Outpatient Room: ER History / Clinical:Chest pain. Calf injury, redness, edema. PMH, cad, dm, htn, ckd, hld, copd Procedures: Carrillo scale, Color Doppler imaging, Doppler Spectral Analysis Race: W ++++++++++++++++++++++++++++++++++++ SUMMARY: ++++++++++++++++++++++++++++++++++++ Right leg: There are NO apparent, deep or superficial vein, ACUTE character venous filling defects visualized in the femoral, popliteal, deep calf or proximal saphenous veins. Resting venous flow is normal phasic proximally. No valve reflux with compressionmaneuvers is detected in the femoral and popliteal veins. Left leg LIMITED: Resting venous flow is normal phasic at the common femoral. No valve reflux with compression maneuvers is detected in the common femoral vein. CONCLUSION: Normal study right lower extremity, with no evidence of acute deep or superficial vein thrombosis. There is no significant reflux detected. ++++++++++++++++++++++++++++++++++++ FINDINGS: ++++++++++++++++++++++++++++++++++++ Signed 10/21/2021 12:57 PM José Kaiser M.D. XR CHEST PA+LAT Result Date: 10/19/2021 Examination: Chest x-ray 2 view Exam Date/Time: 10/19/2021 7:00 AM Reason For Exam: chf Comparison: 10/15/2021 chest radiograph Technique: PA and lateral views of the chest were obtained. Findings: Heart size prominent but stable from prior study. Post sternotomy changes again seen including fractured wires. Atherosclerotic aorta. Increased AP dimensional airspace and flattening of diaphragms. Pulmonary vascularity stable from prior study. Interval worsening of opacities at the lung bases more so on the left obscuring diaphragm shadow on frontal view. Upper lungs clear. ======== IMPRESSION: ======== 1. Developing opacity at the anterior left lung base may be infiltrate or atelectasis. Stable interval appearance of the chest otherwise. Referred By: Interpreted By: Quoc Wilkinson MD, 10/19/2021 7:10 AM XR CHEST PORTABLE Result Date: 10/22/2021 Exam: Chest x-ray Comparison 10/19/2021 INDICATION: Recent hospital discharge for pneumonia. Dyspnea. TECHNIQUE: One view FINDINGS: The heart is enlarged. Median sternotomy and valve replacement. Central pulmonary vessels are partially obscured but are within normal limits for size. The right lung is clear. Indistinctness of the left lung base and hemidiaphragm. Uncertain significance with portable technique and superimposed soft tissues. There could be a component of lung opacification or smallpleural effusion present. No substantial change from the prior exam allowing for differences in patient positioning. The remainder of the left lung is clear. IMPRESSION: 1. Enlarged heart. 2. Artifact versus some mild increased density in the left lung base. Referred By: Interpreted By: Neel Basurto MD, 10/22/2021 6:20 PM XR CHEST PORTABLE Result Date: 10/15/2021 Examination: Chest 1 view portable History: Chest pain DATE/TIME: 10/15/2021 1:17 PM Comparison: NoneTechnique: AP upright portable view of the chest was obtained. Findings: Sternotomy. Heart size andmediastinal contours are normal. Borderline pulmonary vasculature. No pulmonary consolidation, pleural effusion or pneumothorax. No acute osseous abnormality. Old left clavicle fracture. Impression: 1. No acute infiltrate. 2. Borderline vascular congestion. Referred By: Interpreted By: Estevan Martines MD, 10/15/2021 1:33 PM USE ECHOCARDIOGRAM W CON Result Date: 10/16/2021 Echocardiography Report Pat.Name: ANA MARIA BOBO HANNA Wood.ID: [id number] St.Date: 10/16/2021 Exam Time: 3:01:00 PM Study Type:ECHO WITH CARDIAC DOPPLER COMP Height: 64in Weight: 183.62lb BSA: 1.89 m2 Age: 3 1945,76Y Sex: FEMALE BP: 115/57 HR: 91 bpm Sonogrphr: Becky Martel [facility] Pat. Stat. :Inpatient Room: [facility] Reason for Study: Aortic valve replacement, Congestive heart failure, Dyspnea on exertion, Murmur History / Clinical: Chest pain. Calf injury, redness, edema. PMH, cad, dm, htn, ckd, hld, copd Procedures: 2D, M- mode, Doppler, Color Flow, Definity was used to enhance endocardial definition., The study quality is technically difficult. Race: W ++++++++++++++++++++++++++++++++++++ SUMMARY: ++++++++++++++++++++++++++++++++++++ The left ventricular size is normal. Estimated left ventricular ejection fraction is 40-45%. Moderate concentric left ventricular hypertrophy. Left ventricular diastolic function is abnormal (grade 2 - pseudonormal pattern). ?Moderate global hypokinesis is noted. The right ventricular size is normal. Right ventricular systolic function is moderately depressed. A mechanical valve is in the aortic position with post-deployment peak velocity of 3.53m/sec, mean gradient of 31mmHg and a calculated YADIRA of 1.10cm2. Right ventricular systolic pressure is 40-50 mmHg suggestive of mild to moderate pulmonary hypertension. Mild to moderate tricuspid regurgitation. Moderate mitral regurgitation. ++++++++++++++++++++++++++++++++++++ FINDINGS: ++++++++++++++++++++++++++++++++++++ LV: The left ventricular size is normal. Estimated left ventricular ejection fraction is 40-45%. Moderate concentric left ventricular hypertrophy. Left ventricular diastolic function is abnormal (grade 2 - pseudonormal pattern). WM: Moderate global hypokinesis is noted.RV: The right ventricular size is normal. Right ventricular systolic function is moderately depressed. IVS: No evidence of ventricular septal defect. LA: The left atrial size is mildly enlarged. The left atrial volume is mildly increased (34- 41ml/M2). RA: Right atrial size is mildly enlarged. IAS:Atrial septum appears intact. DENICE: No evidence of pericardial effusion. AO: Normal aortic root. PA: Estimated right atrial pressure of 15 mmHg. SVn: Inferior vena cava is mildly enlarged. Inferior vena cava shows <50% collapse with respiration consistent with elevated right atrial pressure. AV:Mechanical prosthetic aortic valve seen. A trace of denice-prosthetic aortic valve regurgitation. A mechanical valve is in the aortic position with post-deployment peak velocity of 3.53m/sec, mean gradient of 31mmHg and a calculated YADIRA of 1.10cm2. MV: Moderate mitral regurgitation. No evidence of mitral stenosis. PV: No evidence of pulmonic valve stenosis. Mild pulmonic regurgitation. TV: Mild to moderate tricuspid regurgitation. Right ventricular systolic pressure is 40-50 mmHg suggestive of mild to moderate pulmonary hypertension. No evidence of tricuspid valve stenosis. ++++++++++++++++++++++++++++++++++++ MEASUREMENTS: ++++++++++++++++++++++++++++++++++++ DOPPLER LVOT LVOTpkPG 8 mmHg LVOTmnPG 4 mmHg LVOTpkVel 141 cm/s (70-110)+* LVOT SV 83 ml LVOT TVI 26.3 cm Right Atrium RA Press 15 mmHg Ayala's Disk 20 AV Forward Flow AV TVI 51.2 cm AV pkPG 37 mmHg AV pkVel 305 cm/s (100-170)+* Area (TVI) 1.61 cm2 (3-5)* AV mnPG 21 mmHg Area (Randall) 1.45 cm2 (3-5)* AV Regurg Flow AV pkVel 381 cm/s AV P1/2t 290 ms AV pkPG 58 mmHg MV Forward Flow MV DeTm 257 ms MV pkPG 9 mmHg MV mnPG 3 mmHg MV pkE 134 cm/s (60-130)+* PV Forward Flow PV pkVel 96.4 cm/s (60-90)* PV AC 109 ms PV pkPG 4 mmHg TV Regurg Flow TV pkPG 26 mmHg TV pkVel 253 cm/s (30-70)+* Right Ventricle RVsys P 41 mmHg Right Ventricle 5.32 cm/s Lat E' Lat e 7.2 cm/s Lat E/E' Lat E/e 18.6 Med E' Med e 4.94 cm/s Med E/E' Med E/e 27.1 Aortic Valve Aortic Valve Ar 0.85 Aortic Valve Ve 0.46 PV Antegrade Flow Acceleration Sl 573 cm/s2 TAPSE Distance 8 mm 2D Left Ventricle LVIDd 4.8 cm (3.6-5.2)+ LV ESV 52.6 ml LVIDs 3.63 cm (2.3-3.9)+ LV ESV 46.2 ml LngAxd 7.03 cm LVESV BP 50.5 ml LngAxd 7.4 cm LV EF 36.1 % LV EDV 82.2 ml LV EF 42.7 % LV EDV 80.4 ml LV EF BP 38.7 % LVEDV BP 82.4 ml LV SV 29.6 ml LngAxs 6.96 cm LV SV 34.4 ml LngAxs 7.36 cm LV SV BP 31.9 ml LVPW LVPWd 1.36 cm Ventricular Septum IVSd 1.32 cm Left Atrium LA VOLBP 72.9 ml Aorta Ao Rtd 2.4 cm LVOT LVOT 2 cm LVOTArea 3.14 cm2 Ratios IVS LA Biplane LAVol I BP 38.6 ml/m2 RA Single Plane Right Atrium MO 13.4 mm Right Atrium Sy 51.1 ml Right Atrium Sy 64.4 mm Right Atrium Sy 27 ml/m2 Right Atrium Sy 20 cm2 Right Ventricle Right Ventricle 27 mm Right Ventricle 32. 8 mm [facility] 77.7 mm Signed 10/16/2021 06:42 PM Tere Cedillo M.D. ASSESSMENT AND PLAN: Hypotension: Suspect over diuresis and poor oral intake following discharge as contributing factors. Patient status post 2 L normal saline given in the emergency room. We will hold on further IV fluid resuscitation at this time. Holding outpatient oral antihypertensive medications and diuretics. Repeat BMP in the morning monitor blood pressure resume outpatient medications as indicated. Acute on chronic renal Failure: suspect seconday to hypotension possible diuresis and continued administration of nephrotoxic medications and reduced oral intake. Medications reviewed will hold nephrotoxic medications. UA pending. Field status post 2 L [place] saline to achieve and maintain euvolemia. Given history of heart failure monitor volume status closely avoid hypotension. Renally dose medications. Consider nephrology consult if not improved with correction of precipitating factors. Repeat BMP in the morning heart failure reduced ejection fraction: Patient appears dry to euvolemic on exam currently holdingoutpatient antihypertensives and diuretic medications and nephrotoxic medications. Resume as indicated. Continue cardiac medications as indicated. Communicare pneumonia: Patient afebrile no leukocytosis we will continue current dose antibiotics pulmonary toilet Acute hypoxic respiratory failure: Secondary to the above patient continues to be maintained on 2 Lnasal cannula 1 L while sleeping patient also found to have respiratory acidosis we will start BiPAP repeat ABG in the morning. A. fib currently rate controlled stroke risk reduction with Coumadin INR pending pharmacy to dose. Hyperlipidemia: Continue statin Hypothyroidism continue methimazole follow-up PCP consider endocrinology referral. GERD: Continue PPI - DVT prophylaxis: Coumadin - Diet/IVF: Cardiac - Code status: Full code - Disposition: Telemetry inpatient Spent 16 minutes discussing plan of care as well as pt wishes and desires regarding medical care. The patient verbalizes understanding and wishes to remain a full code at this time. Surrogate decision maker/MPoA is her Sister Shannon Vigil [phone]. The above plan of care was discussed with the patient in detail. An opportunity was provided for the patient to ask questions regarding the hospital stay and plan of care. All questions were answered. The patient understands and agrees. The patient was informed to ask the RN to contact me if any further questions or concerns. GUNNER BELL V 10/22/2021 documented in this encounter Procedure Notes * Victor M Padilla MD - 10/25/2021 10:37 AM CDTAssociated Order(s): EEG EEG REPORT Type of EEG study: EEG with video Requesting Provider: Dr Deng Date of Study: 10/25/2021 Reason for EEG: Seizures Technical Description and EEG Findings This is a 21-channel EEG recording utilizing the standard international 10-20 electrode placement along with additional electrodes to monitor eye movements; a single ECG channel was also utilized to record ECG. Bipolar and referential montages were utilized for analysis. EEG description: Awake: In the waking state, a continuous generalized medium-amplitude mixed- frequency background was noted; a symmetric posterior dominant rhythm of 6-8 Hz was recorded in the occipital regions bilaterally. The posterior dominant rhythm attenuated with eye opening and enhanced with eye closure. Drowsiness: There was waxing and waning of posterior dominant rhythm with appearance of diffuse synchronous and asynchronous theta-alpha activity during drowsiness. Provocative maneuvers: Photic stimulation: Intermittent photic stimulation produced Provocative maneuvers photic stimulation: symmetrical bi-occipital response ECG: Single ECG channel showed regular cardiac rhythm. Impression/Clinical Correlation This EEG recorded in awake and drowsy states shows mild generalized encephalopathy. documented in this encounter Consult Notes * Victor M Padilla MD - 10/25/2021 10:09 PM CDTAssociated Order(s): IP CONSULT TO NEUROLOGY NEUROLOGY NOTE Name:Ana Maria Bobo Date of Service: 10/25/2021 ID: 76-year-old female HPI: We have the pleasure of seeing Ms. Bobo. She is accompanied by family. History is obtained from her, family and review of records. She is here because she notes that she is short of breath. She feels tired and achy. She feels weak overall. She notes that if she walks further, she feels short of breath and her knees feel like they want to give away. CT head in the past that showed microvascular disease. She also has a small [3 to 4 mm] likely right MCA aneurysm. She is being worked up for multiple medical issues including shortness of breath, NSTEMI, pneumonia, dehydration, OLIVE among others.We have been consulted for this generalized weakness. Review of Systems Gen:?denies??recent fever Eyes:?denies?double vision ENT:?denies?epistaxis Pulm:??has??shortness of breath Cardiac:??has??Chest pain Musc:??has??back pain Heme:??denies??easy bruising Neuro: ??See HPI HOSPITAL MEDICATIONS: ??? azithromycin 500 mg Oral Daily ??? cefdinir 300 mg Oral Daily ??? [START ON 10/26/2021] furosemide 20 mg Oral Daily ??? gabapentin 300 mg Oral BID ??? lidocaine 1 patch Transdermal Q24H ??? methIMAzole 5 mg Oral Daily ??? pantoprazole EC 20 mg Oral Daily ??? rosuvastatin 5 mg Oral Nightly at bedtime ??? senna-docusate 1 tablet Oral Nightly at bedtime ??? venlafaxine XR 150 mg Oral Daily with breakfast ??? warfarin (COUMADIN) pharmacy to dose Oral See Admin Instructions acetaminophen, albuterol sulfate HFA, ALPRAZolam, dextrose 10 % bolus, glucagon, glucose, HYDROcodone-acetaminophen, adfvbvqfv-golrtvpt-kmkcsowoxsz, naLOXone, ondansetron, polyethylene glycol . Past Medical History: Diagnosis Date ??? 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 Anxiety ??? Atrial flutter (CMS/HCC) ??? Cataract ??? Chronic anticoagulation due to mechanical heart valve ??? Chronic pain ??? Diabetes mellitus (CMS/HCC) ??? H/O mechanical aortic valve replacement 2003 ??? Hypertension . Past Surgical History: Procedure Laterality Date ??? REPAIR HEART WOUND . Social History Socioeconomic History ??? Marital status: [...] on file Housing Stability: Not on file . Family History Problem Relation Name Age of Onset ??? Heart Father ??? Diabetes Father ??? Heart Mother Vital signs: @ . Filed Vitals: 10/25/21 0410 10/25/21 0857 10/25/21 1314 10/25/212044 BP: 118/47 (!) 134/118 (!) 158/62 109/55 Pulse: 104 106 111 107 Resp: Temp: 98.4 ??F (36.9 ??C) 98.4 ??F (36.9 ??C) 98.2 ??F (36.8 ??C) TempSrc: Oral Oral SpO2: 97% 99% 96% 97% Weight: 85.5 kg (188 lb 7.9 oz) Height: MENTAL STATUS: Patient was alert, awake and oriented x3, regards and follows commands. Normal language. CRANIAL NERVES: II: Pupils were equal, round and reactive to light III, IV, : normal extraocular movements V: Normal jaw closure and opening. VII: face was symmetric. IX-X: palate elevates at midline. XI: normal symmetric shoulder shrug. XII: tongue was midline and strong. MOTOR: Normal strength 5/5 on MRC scale in the upper and lower extremities. Fine finger movements were slow b/l REFLEXES: 1+/4 in upper and lower extremities. . Kohli's negative. ASSESSMENT and PLAN: In summary Ms. Bobo has shortness of breath, fatigue, chest pains, generalized weakness in the setting of multiple medical comorbidities including atrial fibrillation, hypertension, sleep apnea, diabetes and coronary disease. He is currently being worked up for cardiac conditions, infections, SIRS. EEG shows mild encephalopathy. She is pending MRI brain to rule out any infarct. CT head shows mild to moderate microvascular disease. If MRI brain is normal, no further neurological work-up is needed. Please call us if you have any further questions. If applicable, I have personally reviewed the above laboratory results and/or imaging. 30 minutes were spent with the patient with greater than 50% of the time spent in counseling and coordination of care. VICTOR M PADILLA MD 10/25/2021 10:10 PM Neurology Service * Suleman Dueñas MD - 10/24/2021 2:03 PM CDTAssociated Order(s): IP CONSULT TO PULMONOLOGY Pulmonary Consultation Note History Chief Complaint Patient presents with ??? Weakness Pt was Dced from here yesterday where she was treated for PNA. Arrives here with increased weakness. States she could hardly get herself off the commode. Ana Maria Bobo is a 76-year-old female who has past medical history significant for atrial fibrillation on warfarin, atrial flutter, coronary disease, hyperlipidemia, pretension, diabetes mellitus. 10/15/2021 - 10/22/2021 ALEX treated for chest pain, concern for pneumonia 10/22/2021: Presented to the emergency department with increasing weakness. Found to be hypotensive and hypoxic 10/23/2021: Required BiPAP this day due to respiratory acidosis, requiring 2 L nasal cannula when off BiPAP 10/24/2021: Pulmonary medicine consulted today for further recommendations. At the time my visit sheis alert but having a difficult time recalling what happened when she came into the hospital. She notes that she was having some abdominal discomfort. She has shortness of breath, unclear if it is new but states that when she walks around she can only walk a couple of feet for which she would have to stop to catch her breath. At times she does feel short of breath at rest as well. Denies any history of known pulmonary disease, that being said she does have an albuterol inhaler that she uses at home. On average 3 times weekly. No known prior diagnosis of asthma. Denies history of being diagnosed as COPD. Denies significant cough or phlegm production. No wheezing. Denies oxygen use at home. Essentially a never smoker, states that she smoked for 1 week when she was younger. 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 Anxiety ??? Atrial flutter (CMS/HCC) ??? Cataract ??? Chronic anticoagulation due to mechanical heart valve ??? Chronic pain ??? Diabetes mellitus (CMS/HCC) ??? H/O mechanical aortic valve replacement 2003 ??? Hypertension Past Surgical History: Procedure Laterality Date ??? REPAIR HEART WOUND Social History Tobacco Use ??? Smoking status: Never Smoker ??? Smokeless tobacco: Never Used ??? Tobacco comment: non smoker Vaping Use ??? Vaping Use: Never used Substance Use Topics ??? Alcohol use: Not Currently ??? Drug use: Yes Types: Hydrocodone Comment: chronic pain Family History Problem Relation Name Age of Onset ??? Heart Father ??? Diabetes Father ??? Heart Mother ??? cefdinir 300 mg Oral Daily ??? gabapentin 300 mg Oral BID ??? lidocaine 1 patch Transdermal Q24H ??? methIMAzole 5 mg Oral Daily ??? pantoprazole EC 20 mg Oral Daily ??? rosuvastatin 5 mg Oral Nightly at bedtime ??? senna-docusate 1 tablet Oral Nightly at bedtime ??? venlafaxine XR 150 mg Oral Daily with breakfast ??? warfarin (COUMADIN) pharmacy to dose Oral See Admin Instructions ??? warfarin 4 mg Oral Once acetaminophen, albuterol sulfate HFA, ALPRAZolam, dextrose 10 % bolus, glucagon, glucose, HYDROcodone-acetaminophen, aznjallsd-iyutmvyw-vhagfvbrcte, naLOXone, ondansetron, polyethylene glycol Allergies Allergen Reactions ??? Atorvastatin Leg Pain Leg pain/cramps. Resolved after stopping. ??? Tape Contact Dermatitis ??? Bacitracin Other (see comment) ??? Benzalkonium Other (see comment) ??? Gramicidin Other (see comment) ??? Hydrocortisone Other (see comment) ??? Neomycin Other (see comment) ??? Polymyxin B Other (see comment) Review of Systems Constitutional: Negative for chills, fever and weight loss. HENT: Negative for ear pain, hearing loss and nosebleeds. Eyes: Negative for blurred vision, double vision and redness. Respiratory: Positive for shortness of breath. Negative for cough, hemoptysis, sputum production and wheezing. Cardiovascular: Negative for chest pain, palpitations, orthopnea, leg swelling and PND. Gastrointestinal: Negative for heartburn, nausea and vomiting. Genitourinary: Negative for dysuria, frequency and urgency. Musculoskeletal: Negative for myalgias. Skin: Negative for rash. Neurological: Negative for dizziness, tingling and headaches. Endo/Heme/Allergies: Does not bruise/bleed easily. Psychiatric/Behavioral: Negative for depression and suicidal ideas. Physical Exam Filed Vitals: 10/24/21 0750 10/24/21 1129 10/24/21 1132 10/24/21 1136 BP: 105/44 91/60 109/73 124/59 Pulse: 93 114 104 112 Resp: 20 20 Temp: 98.8 ??F (37.1 ??C) 99.1 ??F (37.3 ??C) TempSrc: Oral Oral SpO2: 99% 99% Weight: Height: Physical Exam: General: Alert, pleasant, in NAD Neuro: Alert, appropriate Psych: Affect normal Head: NC, AT EENT: No Sinus tenderness to palpation, mallampati 2 Neck: Supple Lymph: No cervical lymphadenopathy Respiratory: Diminished breath sounds bilaterally, no focal crackles or wheezing. Cardiovascular: s1,s2, rrr, no audible murmur GI: soft, non-tender, non-distended, bs+ Musc: right wrist ROM wnl Ext: no edema, no clubbing Skin: No visible rashes, No visible tattoos Recent Labs Lab 10/22/21181610/23/21 0420 10/24/21 0351 WBC 4.0* 4.3* 6.0 RBC 2.94* 2.60* 2.58* HGB 9.2* 8.1* 8.1* HCT 31.1* 27.3* 26.9* MCV 105.8* 105.0* 104.3* MCH 31.3* 31.2* 31.4* MCHC 29.6* 29.7* 30.1* PLT 178 155 152 RDW 12.2 12.3 12.3 MPV 13.6* 13.3* 13.9* PERNEU 45.8 48.9 68.2 PERLYM 27.0 24.3 12.0 PERMON 19.9 21.3 17.1 L[facility] 1.07 1.05 0.72* MONOC 0.79 0.92* 1.03* EOSC 0.22 0.20 0.11 BASOC 0.05 0.03 0.04 DTYPE AUTOMATED DIFFERENTIAL AUTOMATED DIFFERENTIAL AUTOMATED DIFFERENTIAL Recent Labs Lab 10/22/21181610/22/21 2350 10/23/21 0420 10/23/21 1754 10/24/21 0351 NA 135* < > 137 138 136 137 K 5.3* -- 4.9 -- 5.3* CL 106 -- 110* -- 111* CO2 25.6 -- 26.0 -- 24.5 AGAP 3.4* -- 1.0* -- 1.5* BUN 59* -- 57* -- 60* CR 2.19* -- 2.07* -- 1.89* BUNCREATININ 26.9* -- 27.5* -- 31.7* GLU 79 -- 77 -- 124* CA 9.1 -- 8.5 -- 8.7 TP 6.1* -- -- -- -- ALB 2.6* -- -- -- -- TBIL 0.3 -- -- -- -- ALKP 85 -- -- -- -- AST 26 -- -- -- -- ALT 24 -- -- -- -- < > = values in this interval not displayed. Recent Labs Lab 10/22/21 2350 10/23/21 0420 10/24/21 0351 INR 3.7 3.7 3.1 MICRO: 09/19/2021 SARS-CoV-2 negative PFTs: 02/17/2020 Full flow volume loops not available Per report the FEV1 was 81%, FVC 81%, FEV1/FVC ratio 70%. TLC 136%. RV 216%. Impression noting pattern suggestive of COPD, disagree, given the numbers in the report this is not obstructed CXR 10/22/2021 Images personally reviewed. Infiltrate or effusion in the left lung base compared to prior imaging CT Chest 10/15/2021 Images personally reviewed. Relatively clear lung diane bilaterally. No PE. 2D Echocardiogram 10/16/2021 Ejection fraction 40 to 45%. Grade 2 diastolic dysfunction. RVSP 40 to 50 mmHg Assessment 1. Acute combined hypoxic/hypercarbic respiratory failure 2. Left lower lobe infiltrate 3. Combined systolic and diastolic CHF Plan -Supplemental oxygen to maintain saturations 90 to 96%, wean as tolerated - Currently off BiPAP, but if she does require BiPAP again I would recommend monitoring in the ICU rather than on the floor -Obtain noncontrast CT scan of the chest for further clarification whether or not there is an infiltrate in the left lower lobe versus an effusion - Agree with community-acquired pneumonia coverage, okay with cefdinir, add azithromycin 500 mg daily for 3 days - Sputum for culture/gram stain if able -Obtain/maintain euvolemia - Incentive spirometer - Akiko Thank you for this consult. Please do not hesitate to contact me with any further questions or concerns. Suleman Dueñas MD * Zoey Ricks, [id number]-[id number] - 10/24/2021 1:06 PM CDTAssociated Order(s): IP CONSULT TO CARDIOLOGY Cardiology Consult for hypotension. 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 Cedillo, follows at [facility] with Dr. Paredes. Seen with Dr. Rosado History and Physical : Ana Maria Bobo is a 76-year-old female patient with past medical history significant for atrial flutter, A-fib anticoagulated with warfarin, mechanical [facility]. Lj aortic valve (on warfarin), hypertension, obstructive sleep apnea compliant with CPAP. CAD, diabetes mellitus, HTN, HLD who presents for weakness. Of note, patient was admitted last week for CHF. She was diuresed and DC home. Since returning home, she has increased weakness. Noted to have OLIVE on CKD, found to be profoundly hypotensive. She was found to PNA, started on bipap for respiratory acidosis. Her camera mechanic is Dr. Paredes, last seen on 09/12/21.?? History of failed cardioversion in 2019, previously on sotalol and was placed on amiodarone. Underwent LHC in 2001 with minimal luminal irregularities. Prior lexiscan in 2019 with old anterior VA. ?? Echo done 10/16/21 showed The left ventricular size is normal. Estimated left ventricular ejection fraction is 40-45%. Moderate concentric left ventricular hypertrophy. Left ventricular diastolic function is abnormal (grade 2 - pseudonormal pattern).Moderate global hypokinesis is noted. Right ventricular systolic function is moderately depressed. A mechanical valve is in the aortic position with post-deployment peak velocity of 3.53m/sec, mean gradient of 31mmHg and a calculated YADIRA of 1.10cm2. Right ventricular systolic pressure is 40-50 mmHg suggestive of mild to moderate pulmonary hypertension. Mild to moderate tricuspid regurgitation. Moderate mitral regurgitation. Assessment and Plan: NSTEMI Mildly elevated troponin. Will repeat and trend. She has self limiting CP but also has possible PNAand cough. Echo done last admit showed EF was 40-45%, global hypokinesis. Consider repeat ischemic eval once other issues resolved. No heparin at this point as she is on warfarin for hx of AVR. Would recommend baby aspirin Mechanical AVR Continue warfarin, INR goal is 2.5-3.5 Hypotension In the setting of over diuresis and poor oral intake following discharge as contributing factors along with possible PNA. Patient status post 2 L normal saline given in the emergency room. ??We will hold on further IV fluid resuscitation at this time given hx of CHF. ??BP is improving. Holding outpa tient oral antihypertensive medications and diuretics. Blood cultures negative. No fevers. No significant leukocytosis. ?? OLIVE on CKD?? Received 2L IVF. Hold further fluids for now. consider renal consult if worsening. Hold nephrotoxicmeds. Hold lasix. ?? HFrEF, not in exacerbation Patient appears dry to euvolemic on exam currently holding outpatient antihypertensives and diuretic medications and nephrotoxic medications. ??Resume as indicated. We will follow volume status closely. ?? PNA/UTI Per others. ?? Acute hypoxic respiratory failure: Started on bipap last night. PH improved to 7.33. co2 normalized. On 2L oxygen. On abx Consider pulm consult if not improving. A. fib Rate currently elevated due to acute illness stroke risk reduction with Coumadin INR pending pharmacy to dose. Past Medical History: Diagnosis Date ??? 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 Anxiety ??? Atrial flutter (CMS/HCC) ??? Cataract ??? Chronic anticoagulation due to mechanical heart valve ??? Chronic pain ??? Diabetes mellitus (CMS/HCC) ??? H/O mechanical aortic valve replacement 2003 ??? Hypertension Past Surgical History: Procedure Laterality Date ??? REPAIR HEART WOUND Social History Tobacco Use ??? Smoking status: Never Smoker ??? Smokeless tobacco: Never Used ??? Tobacco comment: non smoker Vaping Use ??? Vaping Use: Never used Substance Use Topics ??? Alcohol use: Not Currently ??? Drug use: Yes Types: Hydrocodone Comment: chronic pain Family History Problem Relation Name Age of Onset ??? Heart Father ??? Diabetes Father ??? Heart Mother ??? cefdinir 300 mg Oral Daily ??? gabapentin 300 mg Oral BID ??? lidocaine 1 patch Transdermal Q24H ??? methIMAzole 5 mg Oral Daily ??? pantoprazole EC 20 mg Oral Daily ??? rosuvastatin 5 mg Oral Nightly at bedtime ??? senna-docusate 1 tablet Oral Nightly at bedtime ??? venlafaxine XR 150 mg Oral Daily with breakfast ??? warfarin (COUMADIN) pharmacy to dose Oral See Admin Instructions ??? warfarin 4 mg Oral Once acetaminophen, albuterol sulfate HFA, ALPRAZolam, dextrose 10 % bolus, glucagon, glucose, HYDROcodone-acetaminophen, auefqlkay-wquassxb-ecbmowzsdht, naLOXone, ondansetron, polyethylene glycol Prior to Admission medications Medication Sig Start Date End Date Taking? Authorizing Provider cefdinir (OMNICEF) 300 MG Cap capsule Take 1 capsule (300 mg total) by mouth 2 (two) times daily for 4 days. 10/22/21 10/26/21 Yes Jonathan Gaytan MD Cholecalciferol (VITAMIN D3) 25 MCG (1000 UT) Cap Take 1,000 Units by mouth daily. Yes Doc Abstract FEROSUL 325 (65 Fe) MG tablet Take 1 tablet by mouth once daily Patient taking differently: Take 325 mg by mouth daily with breakfast. 10/07/21 Yes Suleman Webster, DO fluticasone propionate 50 MCG/ACT nasal spray 2 sprays by Nasal route daily. Yes Doc Abstract furosemide (LASIX) 40 MG tablet Take 1 tablet (40 mg total) by mouth daily for 30 days. 10/22/21 11/21/21 Yes Jonathan Gaytan MD gabapentin 300 MG capsule Take 1 capsule (300 mg total) by mouth 2 (two) times daily. 07/16/20 Yes Juan Pablo Dominguez MD LISINOPRIL 40 MG tablet Take 1 tablet by mouth once daily Patient taking differently: Take 40 mg by mouth daily. 03/11/21 Yes Suleman Webster, DO methIMAzole 5 MG tablet Take 1 tablet (5 mg total) by mouth daily. 08/30/21 Yes Panda Moreno MD metoprolol succinate ER 25 MG 24 hr tablet Take 1 tablet (25 mg total) by mouth daily. 09/02/21 Yes Suleman Webster, DO omeprazole (PRILOSEC) 20 MG capsule Take 1 capsule by mouth once daily 10/07/21 Yes Suleman Webster, DO rosuvastatin 5 MG tablet Take 1 tablet (5 mg total) by mouth nightly at bedtime. 08/14/21 Yes Jonathan Webster DO VENLAFAXINE XR 150 MG 24 hr capsule Take 1 capsule by mouth once daily Patient taking differently: Take 150 mg by mouth daily. 06/17/21 Yes Suleman Webster DO warfarin (COUMADIN) 5 MG tablet Take 5 mg by mouth daily. Yes Doc Abstract acetaminophen (TYLENOL) 500 MG tablet Take 500 mg by mouth daily as needed. 08/17/20 Doc Abstract albuterol sulfate HFA 108 (90 Base) MCG/ACT inhaler Inhale 2 puffs into the lungs every 6 (six) hours as needed for Wheezing. 10/10/21 Suleman Webster DO ALPRAZolam (XANAX) 0.25 MG tablet Take 1 tablet (0.25 mg total) by mouth 2 (two) times daily as needed for Anxiety. 10/10/21 Suleman Webster, DO HYDROcodone-acetaminophen (NORCO) 10-325 MG tablet Take 1 tablet by mouth every 6 (six) hours as needed for Pain. Indications: Chronic Pain Do not take with alprazolam. No further refills until seen in office. 09/26/21 Suleman Webster, DO lidocaine 5 % Apply pain patch to affected area. Change after 12 hours. 08/30/20 Trina Hoffman NP Allergies Allergen Reactions ??? Atorvastatin Leg Pain Leg pain/cramps. Resolved after stopping. ??? Tape Contact Dermatitis ??? Bacitracin Other (see comment) ??? Benzalkonium Other (see comment) ??? Gramicidin Other (see comment) ??? Hydrocortisone Other (see comment) ??? Neomycin Other (see comment) ??? Polymyxin B Other (see comment) Review of Systems Constitutional: Positive for chills and malaise/fatigue. Negative for diaphoresis, fever and weightloss. HENT: Negative for hearing loss. Eyes: Negative for blurred vision and double vision. Respiratory: Positive for cough and shortness of breath. Negative for wheezing. Cardiovascular: Positive for chest pain. Negative for palpitations, orthopnea, claudication, leg swelling and PND. Gastrointestinal: Negative for blood in stool, diarrhea, heartburn and nausea. Genitourinary: Negative for dysuria and hematuria. Musculoskeletal: Negative for falls, joint pain and myalgias. Skin: Negative for rash. Neurological: Negative for dizziness, tingling, focal weakness, weakness and headaches. Endo/Heme/Allergies: Does not bruise/bleed easily. Psychiatric/Behavioral: Negative for depression and memory loss. Filed Vitals: 10/24/21 0750 10/24/21 1129 10/24/21 1132 10/24/21 1136 BP: 105/44 91/60 109/73 124/59 Pulse: 93 114 104 112 Resp: 20 20 Temp: 98.8 ??F (37.1 ??C) 99.1 ??F (37.3 ??C) TempSrc: Oral Oral SpO2: 99% 99% Weight: Height: Physical Exam: Physical Exam Constitutional: Appearance: She is well-developed. She is ill-appearing. Eyes: Pupils: Pupils are equal, round, and reactive to light. Neck: Vascular: No JVD. Cardiovascular: Rate and Rhythm: Normal rate and regular rhythm. Heart sounds: Normal heart sounds. No murmur heard. Pulmonary: Effort: Pulmonary effort is normal. Breath sounds: Wheezing present. Abdominal: General: Bowel sounds are normal. There is no distension. Palpations: Abdomen is soft. Tenderness: There is no abdominal tenderness. Musculoskeletal: General: Normal range of motion. Skin: General: Skin is warm and dry. Comments: Flushed cheeks Neurological: Mental Status: She is alert and oriented to person, place, and time. Recent Labs Lab 10/22/21 1817 10/23/21 0420 10/24/21 0351 WBC 4.0* 4.3* 6.0 RBC 2.94* 2.60* 2.58* HGB 9.2* 8.1* 8.1* HCT 31.1* 27.3* 26.9* MCV 105.8* 105.0* 104.3* MCH 31.3* 31.2* 31.4* MCHC 29.6* 29.7* 30.1* PLT 178 155 152 RDW 12.2 12.3 12.3 MPV 13.6* 13.3* 13.9* PERNEU 45.8 48.9 68.2 PERLYM 27.0 24.3 12.0 PERMON 19.9 21.3 17.1 LYMC 1.07 1.05 0.72* MONOC 0.79 0.92* 1.03* EOSC 0.22 0.20 0.11 BASOC 0.05 0.03 0.04 DTYPE AUTOMATED DIFFERENTIAL AUTOMATED DIFFERENTIAL AUTOMATED DIFFERENTIAL Recent Labs Lab 10/22/21181610/22/21234910/23/2141910/23/[id number]/24/21350 NA 135* < > 137 138 136 137 K 5.3* -- 4.9 -- 5.3* CL 106 -- 110* -- 111* CO2 25.6 -- 26.0 -- 24.5 AGAP 3.4* -- 1.0* -- 1.5* BUN 59* -- 57* -- 60* CR 2.19* -- 2.07* -- 1.89* BUNCREATININ 26.9* -- 27.5* -- 31.7* GLU 79 -- 77 -- 124* CA 9.1 -- 8.5 -- 8.7 TP 6.1* -- -- -- -- ALB 2.6* -- -- -- -- TBIL 0.3 -- -- -- -- ALKP 85 -- -- -- -- AST 26 -- -- -- -- ALT 24 -- -- -- -- < > = values in this interval not displayed. Recent Labs Lab 10/22/21234910/23/2141910/24/21350 INR 3.7 3.7 3.1 Recent Labs Lab 10/22/21181610/22/21234910/24/21350 NA 135* < > 137 K 5.3* < > 5.3* CL 106 < > 111* CO2 25.6 < > 24.5 BUN 59* < > 60* CR 2.19* < > 1.89* CA 9.1 < > 8.7 GLU 79 < > 124* AGAP 3.4* < > 1.5* TP 6.1* -- -- ALB 2.6* -- -- ALT 24 -- -- WBC 4.0* < > 6.0 HGB 9.2* < > 8.1* PLT 178 < > 152 < > = values in this interval not displayed. Recent Labs Lab 10/22/21 1817 TROP 61* No results found for this visit on 10/22/21 (from the past 8736 hour(s)). Results for orders placed or performed during the hospital encounter of 10/22/21 (from the past 8736 hour(s)) CULTURE, BACTERIA, BLOOD Collection Time: 10/22/21 6:17 PM Specimen: BLOOD Result Value Ref Range Spec. Description BLOOD Special Requests: NO SPECIAL REQUEST Culture Result: NO GROWTH 2 DAYS CULTURE, BACTERIA, BLOOD Collection Time: 10/22/21 6:17 PM Specimen: BLOOD Result Value Ref Range Spec. Description BLOOD Special Requests: NO SPECIAL REQUEST Culture Result: NO GROWTH 2 DAYS HAI DAILEY Cosigned by Jerome Rosado MD,PHD at 10/24/2021 5:45 PM CDT documented in this encounter Nursing Notes * Jaylyn Villasenor RN - 11/05/2021 4:30 PM CDT Nurse called and gave report to DALE Blair from [facility]. All questions and concerns answered. Informed her that patient will be on 6 pm [facility]. V/U. * Silvina Lucas RN - 10/30/2021 9:40 AM CDT Patient complained of left sided chest pain that goes across left chest. EKG was done and afib withleft bundle branch block was noted. Dr. Deng, and Dianne Ricks, JIMBO aware, and JIMBO Ricks statedshe would see patient today. Patient stated that chest pain has subsided, and will let us know if it returns again. documented in this encounter ED Notes * Kelley Collins RN - 10/22/2021 6:59 PM CDT MD LUTHER AWARE OF PTS CURRENT VS * Swathi Castellon MD - 10/22/2021 6:26 PM CDT [place], [place] EMERGENCY DEPARTMENT ENCOUNTER Chief Complaint Chief Complaint Patient presents with ??? Weakness Pt was Dced from here yesterday where she was treated for PNA. Arrives here with increased weakness. States she could hardly get herself off the commode. History of Present Illness Provider at Bedside Date/Time Event User Comments 10/22/21 1750 Provider at Bedside Assessing Patient SANJANA BATES -- Ana Mariachago Bobo is a 25-ivqt-mys-year-old female with a PMH of a-fib, HTN, DM presents to the ED for evaluation of weakness. Pt was discharged home yesterday from this facility after being admitted on 10/15 for pneumonia. Pt reports increased weakness since being home and has been unable to standor ambulate. Also states she has some shortness of breath. Pt normally lives alone but is staying with her friend until she recovered. Pt's friend is at bedside and states her PCP recommend she go [facility] ED. Pt takes Warfarin. PCP: Dr. Webster Medical History ALLERGIES: Allergies Allergen Reactions ??? Atorvastatin Leg Pain Leg pain/cramps. Resolved after stopping. ??? Tape Contact Dermatitis ??? Bacitracin Other (see comment) ??? Benzalkonium Other (see comment) ??? Gramicidin Other (see comment) ??? Hydrocortisone Other (see comment) ??? Neomycin Other (see comment) ??? Polymyxin B Other (see comment) MEDICATIONS: Prior to Admission medications Medication Sig Start Date End Date Taking? Authorizing Provider cefdinir (OMNICEF) 300 MG Cap capsule Take 1 capsule (300 mg total) by mouth 2 (two) times daily for 4 days. 10/22/21 10/26/21 Yes Jonathan Gaytan MD Cholecalciferol (VITAMIN D3) 25 MCG (1000 UT) Cap Take 1,000 Units by mouth daily. Yes Doc Abstract FEROSUL 325 (65 Fe) MG tablet Take 1 tablet by mouth once daily Patient taking differently: Take 325 mg by mouth daily with breakfast. 10/07/21 Yes Suleman Webster DO fluticasone propionate 50 MCG/ACT nasal spray 2 sprays by Nasal route daily. Yes Doc Abstract furosemide (LASIX) 40 MG tablet Take 1 tablet (40 mg total) by mouth daily for 30 days. 10/22/21 11/21/21 Yes Jonathan Gaytan MD gabapentin 300 MG capsule Take 1 capsule (300 mg total) by mouth 2 (two) times daily. 07/16/20 Yes Juan Pablo Dominguez MD LISINOPRIL 40 MG tablet Take 1 tablet by mouth once daily Patient taking differently: Take 40 mg by mouth daily. 03/11/21 Yes Suleman Webster DO methIMAzole 5 MG tablet Take 1 tablet (5 mg total) by mouth daily. 08/30/21 Yes Panda Moreno MD metoprolol succinate ER 25 MG 24 hr tablet Take 1 tablet (25 mg total) by mouth daily. 09/02/21 Yes Suleman Webster DO omeprazole (PRILOSEC) 20 MG capsule Take 1 capsule by mouth once daily 10/07/21 Yes Suleman Webster DO rosuvastatin 5 MG tablet Take 1 tablet (5 mg total) by mouth nightly at bedtime. 08/14/21 Yes Jnoathan Webster DO VENLAFAXINE XR 150 MG 24 hr capsule Take 1 capsule by mouth once daily Patient taking differently: Take 150 mg by mouth daily. 06/17/21 Yes Suleman Webster DO warfarin (COUMADIN) 5 MG tablet Take 5 mg by mouth daily. Yes Doc Abstract acetaminophen (TYLENOL) 500 MG tablet Take 500 mg by mouth daily as needed. 08/17/20 Doc Abstract albuterol sulfate HFA 108 (90 Base) MCG/ACT inhaler Inhale 2 puffs into the lungs every 6 (six) hours as needed for Wheezing. 10/10/21 Suleman Webster, DO ALPRAZolam (XANAX) 0.25 MG tablet Take 1 tablet (0.25 mg total) by mouth 2 (two) times daily as needed for Anxiety. 10/10/21 Suleman Webster, DO HYDROcodone-acetaminophen (NORCO) 10-325 MG tablet Take 1 tablet by mouth every 6 (six) hours as needed for Pain. Indications: Chronic Pain Do not take with alprazolam. No further refills until seen in office. 09/26/21 Suleman Webster, DO lidocaine 5 % Apply pain patch to affected area. Change after 12 hours. 08/30/20 Trina Hoffman NP PAST MEDICAL HISTORY: Past Medical History: Diagnosis Date ??? 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 Anxiety ??? Atrial flutter (CMS/HCC) ??? Cataract ??? Chronic anticoagulation due to mechanical heart valve ??? Chronic pain ??? Diabetes mellitus (CMS/HCC) ??? H/O mechanical aortic valve replacement 2003 ??? Hypertension PAST SURGICAL HISTORY: Past Surgical History: Procedure Laterality Date ??? REPAIR HEART WOUND FAMILY HISTORY: Family History Problem Relation Name Age of Onset ??? Heart Father ??? Diabetes Father ??? Heart Mother SOCIAL HISTORY: Social History Tobacco Use ??? Smoking status: Never Smoker ??? Smokeless tobacco: Never Used ??? Tobacco comment: non smoker Vaping Use ??? Vaping Use: Never used Substance Use Topics ??? Alcohol use: Not Currently ??? Drug use: Yes Types: Hydrocodone Comment: chronic pain Review of Systems Review of Systems Constitutional: Negative. Negative for activity change, chills and fever. HENT: Negative. Negative for ear pain, nosebleeds and sore throat. Eyes: Negative. Negative for pain. Respiratory: Positive for shortness of breath. Negative for cough. Cardiovascular: Negative. Negative for chest pain and leg swelling. Gastrointestinal: Negative. Negative for abdominal pain, blood in stool, nausea and vomiting. Genitourinary: Negative. Negative for dysuria. Musculoskeletal: Negative. Negative for back pain. Neurological: Positive for weakness. Negative for dizziness and headaches. Psychiatric/Behavioral: Negative. Negative for agitation. All other systems reviewed and are negative. See HPI for further details. All systems negative except as marked. Physical Exam Filed Vitals: 10/22/21 1830 10/22/21 1859 10/22/21 1900 10/22/21 194 BP: (!) 79/50 89/39 110/49 91/50 Pulse: 88 84 77 73 Resp: 14 14 Temp: TempSrc: SpO2: 96% 96% Weight: Height: Physical Exam Vitals and nursing note reviewed. Constitutional: Appearance: She is well-developed. HENT: Head: Normocephalic and atraumatic. Nose: Nose normal. Eyes: Pupils: Pupils are equal, round, and reactive to light. Neck: Thyroid: No thyromegaly. Cardiovascular: Rate and Rhythm: Normal rate. Rhythm irregularly irregular. Heart sounds: Normal heart sounds. No murmur heard. No friction rub. No gallop. Abdominal: General: Bowel sounds are normal. There is no distension. Palpations: Abdomen is soft. Tenderness: There is no abdominal tenderness. Comments: Obese Musculoskeletal: Cervical back: Normal range of motion and neck supple. Skin: General: Skin is warm and dry. Neurological: Mental Status: She is alert and oriented to person, place, and time. Cranial Nerves: No cranial nerve deficit. Sensory: No sensory deficit. Psychiatric: Behavior: Behavior normal. Judgment: Judgment normal. Diagnostic Studies / Procedures ELECTROCARDIOGRAMS: Results for orders placed or performed during the hospital encounter of 10/22/21 ECG 12 lead Narrative [address] Test Date: 2021-10-22 Pat Name: ANA MARIA BOBO Department: 41 Room: [place] [address] Gender: Female Credit Report Checker: : 1945 Requested By: SANJANA BATES Order Number: [id number] Reading MD: Measurements Intervals [place] Rate: 86 P: MS: 0 QRS: -37 QRSD: 160 T: 98 QT: 411 QTc: 494 Interpretive Statements ATRIAL FIBRILLATION LEFT AXIS DEVIATION [QRS AXIS < -30] LEFT BUNDLE BRANCH BLOCK [120+ ms QRS DURATION, 80+ ms Q/S IN V1/V2, 85+ ms R IN I/aVL/V5/V6] Compared to ECG 10/15/2021 17:09:13 Left-axis deviation now present LABORATORY STUDIES: Results for orders placed or performed during the hospital encounter of 10/22/21 CBC W/DIFF AUTOMATED Result Value Ref Range WBC 4.0 (L) 4.5 - 11.0 x10'3/uL RBC 2.94 (L) 4.20 - 5.40 x10'6/uL HGB 9.2 (L) 12.0 - 16.0 G/DL HCT 31.1 (L) 38.0 - 48.0 % MCV 105.8 (H) 81.0 - 99.0 FL MCH 31.3 (H) 27.0 - 31.0 PG MCHC 29.6 (L) 32.0 - 36.0 G/DL RDW 12.2 11.5 - 14.5 % PLT 178 130 - 400 x10'3/uL MPV 13.6 (H) 9.3 - 12.2 FL DIFFERENTIAL TYPE AUTOMATED DIFFERENTIAL NEUTROPHILS 45.8 % LYMPHOCYTES 27.0 % MONOCYTES 19.9 % EOSINOPHILS 5.5 % BASOPHILS 1.3 % IMMATURE GRANS 0.5 % ABS. NEUTROPHILS TOTAL 1.82 1.80 - 7.70 x10'3/uL ABS. LYMPHOCYTES 1.07 1.00 - 4.80 x10'3/uL ABS. MONOCYTES 0.79 0.24 - 0.86 x10'3/uL ABS. EOSINOPHILS 0.22 0.04 - 0.36 x10'3/uL ABS. BASOPHILS 0.05 0.01 - 0.08 x10'3/uL ABS. IMMATURE GRANULOCYTES 0.02 0.00 - 0.49 x10'3/uL RBC MORPHOLOGY SLIDE REVIEWED MACRO 1+ PLT EST. ADEQUATE PATHOLOGIST COMMENT PATHOLOGIST REVIEW TO FOLLOW. COMPREHENSIVE METABOLIC PANEL Result Value Ref Range GLUCOSE 79 70 - 99 MG/DL BUN 59 (H) 7 - 18 MG/DL CREATININE S/P/B 2.19 (H) 0.55 - 1.02 MG/DL SODIUM 135 (L) 136 - 145 MMOL/L POTASSIUM 5.3 (H) 3.5 - 5.1 MMOL/L CHLORIDE S/P/B 106 100 - 108 MMOL/L CO2 25.6 21 - 32 MMOL/L CALCIUM 9.1 8.5 - 10.1 MG/DL BILIRUBIN TOTAL S/P/B 0.3 0.2 - 1.2 MG/DL TOTAL PROTEIN S/P/B 6.1 (L) 6.4 - 8.2 G/DL ALBUMIN S/P/B 2.6 (L) 3.4 - 5.0 G/DL AST 26 15 - 37 U/L ALT 24 14 - 55 U/L ALKALINE PHOSPHATASE S/P/B 85 50 - 136 U/L ANION GAP 3.4 (L) 5 - 15 MMOL/L BUN CREATININE RATIO 26.9 (H) 6 - 26 A/G RATIO 0.7 (L) 1.0 - 2.0 RATIO GFR ESTIMATE 23 (L) >90 ML/MIN/1.73 M2 TROPONIN, QUANT Result Value Ref Range TROPONIN I HIGH SENSITIVITY 61 (H) <54 ng/L PROCALCITONIN (PCT) Result Value Ref Range Procalcitonin <0.05 <0.5 NG/ML LACTIC ACID Result Value Ref Range LACTIC ACID 0.8 0.4 - 2.0 MMOL/L ARTERIAL BLOOD GAS Result Value Ref Range TIME TEST WAS PERFORMED: 2012 SAMPLE TYPE ARTERIAL DRAW SITE RT RADIAL MEENU TEST MEENU TEST PERFORMED TECH CODE 541,251 FIO2 32.0 % PH ARTERIAL 7.28 (LL) 7.35 - 7.45 PCO2 50.3 (H) 35 - 45 MM HG PO2 120 (H) 80 - 100 MM HG BICARB-ARTERIAL 23.3 21 - 28 MEQ/L TCO2 24.9 MEQ/L BASE DEFICIT 3.4 (H) 0 - 2 MEQ/L HEMOGLOBIN, BLOOD GAS 8.2 (L) 12.0 - 16.0 G/DL % O2 HEMOGLOBIN,ARTERIAL 97.8 95 - 100 % CARBON MONOXIDE 2.0 <3.0 % METH HEMOGLOBIN PENDING <3.0 % O2 CONTENT 11.5 (L) 15 - 22 VOL% AADO2 47.9 P/F RATIO (TIDAL VOL CALC) 376 IMAGING STUDIES XR CHEST PORTABLE Final Result by User, [id number] (10/23 1823) Exam: Chest x-ray Comparison 10/19/2021 INDICATION: Recent hospital discharge for pneumonia. Dyspnea. TECHNIQUE: One view FINDINGS: The heart is enlarged. Median sternotomy and valve replacement. Central pulmonary vessels are partially obscured but are within normal limits for size. The right lung is clear. Indistinctness of the left lung base and hemidiaphragm. Uncertain significance with portable technique and superimposed soft tissues. There could be a component of lung opacification or small pleural effusion present. No substantial change from the prior exam allowing for differences in patient positioning. The remainder of the left lung is clear. IMPRESSION: 1. Enlarged heart. 2. Artifact versus some mild increased density in the left lung base. Referred By: Interpreted By: Neel Basurto MD, 10/22/2021 6:20 PM ED Course / Medical Decision Making Data reviewed: All current, pertinent and timely studies (laboratory, imaging, and procedures) wereordered and results reviewed by Swathi Castellon MD unless otherwise noted. Triage notes and available nursing notes reviewed. Previous medical record reviewed when available. Repeat vital signs reviewed. Medications sodium chloride 0.9% infusion (has no administration in time range) sodium chloride 0.9% bolus infusion 1,000 mL (1,000 mLs Intravenous New Bag 10/22/21 1825) sodium chloride 0.9% bolus infusion 1,000 mL (1,000 mLs Intravenous New Bag 10/22/21 1906) Clinical Impression Hypotension (Primary) Elevated troponin Dehydration Weakness Current Discharge Medication List Disposition: Admit Follow-Up: Suleman Webster DO I, Tresa Hernández, acting as a scribe, am personally taking down the notes in the presence of Swathi Castellon MD. Take no action on this note until reviewed and authenticated by the physician. Swathi Castellon MD 10/22/21 2017 * HAWK Ortega - 10/22/2021 5:57 PM CDT [place], [place] EMERGENCY DEPARTMENT ENCOUNTER Medical Screening Examination 10/22/21 5:57 PM Chief Complaint : Weakness (Pt was Dced from here yesterday where she was treated for PNA. Arrives here with increased weakness. States she could hardly get herself off the commode. ) HPI : Ana Maria Bobo is a 76-year-old female who presents for worsening weakness after being discharged from hospital with pneumonia. Vital Signs: Filed Vitals: 10/22/21 1750 BP: (!) 80/52 Pulse: 84 Resp: 20 Temp: 98.5 ??F (36.9 ??C) TempSrc: Temporal SpO2: 94% Weight: 83.9 kg (185 lb) Height: 5' 4 (1.626 m) Physical exam: A brief physical exam was completed to facilitate/expedite patient care. Paz findings include: no respiratory distress generalized weakness. Plan: Labs & Imaging was ordered to facilitate patient care. and EKG was ordered to faciliate patient care. HAWK Ortega 10/22/21 1758 Cosigned by Swathi Castellon MD at 10/22/2021 10:45 PM CDT * Gavino Aldana RN - 10/22/2021 5:52 PM CDTSummary: Triage Pt to ED via WC. Pt was Dced from here yesterday where she was treated for PNA. Arrives here with increased weakness. States she could hardly get herself off the commode today. States she has slight SOB. Denies fever, body aches, chills. BP 80/52 right side, 76/45 left side in triage. oyster sorter made aware of need of room. Respirations are even/non-labored. Pt speaking in full/complete sentences. Pt A&Ox4. Skin PWD. Pt in no acute distress in triage. documented in this encounter Plan of Treatment Upcoming Encounters Date Type Department Care Team (Late st Contact Info) Description 04/14/2024 2:00 PM SENIOR HEALTH EDUCATOR Office Visit [facility] [address], [address] [place] [address] Julio Pulido MD [address] [place] [address] documented as of this encounter Goals Goal Patient Goal Type Associated Problems Recent Progress Patient-Stated? Author Health - patient able to perform ADLs independently General On track(2023 9:49 AM CDT) Dianne Corona RN Note: 12/17/23: Patient stated she is independent with ASL's. Establish Plan for Symptom Monitoring-CHF General On track(2023 11:36 AM SENIOR HEALTH EDUCATOR) Dianne Corona, RN Note: Patient will recognize [...] Monitoring-COPD General On track(2023 11:36 AM SENIOR HEALTH EDUCATOR) Dianne Corona, RN Note: Patient will recognize [...] Monitoring-DM General On track(2023 4:33 PM SENIOR HEALTH EDUCATOR) Dianne Corona RN Note: Patient will manage [...] Monitoring-HTN General On track(2023 4:33 PM SENIOR HEALTH EDUCATOR) Dianne Corona RN Note: Patient will monitor B/P several times per week , record readings and report to physician or CC if B/P consistently >130/80 Take your medications as prescribed. Follow up with your provider as scheduled. Take your blood pressure at least several times a week if able. documented as of this encounter Procedures Procedure Name Priority Date/Time Associated Diagnosis Comments POCT GLUCOSE - MELLO DOCKED DEVICE Routine 11/05/2021 12:12 PM CDT PROTHROMBIN TIME, VENOUS Routine 11/05/2021 7:02 AM CDT COMPREHENSIVE METABOLIC PANEL Routine 11/05/2021 7:02 AM CDT CBC W/DIFF AUTOMATED Routine 11/05/2021 7:02 AM CDT MAGNESIUM Routine 11/05/2021 7:02 AM CDT POCT GLUCOSE - MELLO DOCKED DEVICE Routine 11/05/2021 5:44 AM CDT POCT GLUCOSE - MELLO DOCKED DEVICE Routine 11/04/2021 7:39 PM CDT PROTHROMBIN TIME, VENOUS Routine 11/04/2021 8:11 AM CDT COMPREHENSIVE METABOLIC PANEL Routine 11/04/2021 8:11 AM CDT CBC W/DIFF AUTOMATED Routine 11/04/2021 8:11 AM CDT MAGNESIUM Routine 11/04/2021 8:11 AM CDT POCT GLUCOSE - MELLO DOCKED DEVICE Routine 11/03/2021 3:24 PM CDT POCT GLUCOSE - MELLO DOCKED DEVICE Routine 11/03/2021 11:47 AM CDT PROTHROMBIN TIME, VENOUS Routine 11/03/2021 6:49 AM CDT COMPREHENSIVE METABOLIC PANEL Routine 11/03/2021 6:49 AM CDT CBC W/DIFF AUTOMATED Routine 11/03/2021 6:49 AM CDT MAGNESIUM Routine 11/03/2021 6:49 AM CDT POCT GLUCOSE - MELLO DOCKED DEVICE Routine 11/03/2021 5:47 AM CDT POCT GLUCOSE - MELLO DOCKED DEVICE Routine 11/02/2021 8:39 PM CDT POCT GLUCOSE - MELLO DOCKED DEVICE Routine 11/02/2021 3:48 PM CDT POCT GLUCOSE - MELLO DOCKED DEVICE Routine 11/02/2021 11:08 AM CDT PROTHROMBIN TIME, VENOUS Routine 11/02/2021 6:37 AM CDT COMPREHENSIVE METABOLIC PANEL Routine 11/02/2021 6:37 AM CDT CBC W/DIFF AUTOMATED Routine 11/02/2021 6:37 AM CDT POCT GLUCOSE - MELLO DOCKED DEVICE Routine 11/02/2021 5:22 AM CDT POCT GLUCOSE - MELLO DOCKED DEVICE Routine 11/01/2021 7:59 PM CDT POCT GLUCOSE - MELLO DOCKED DEVICE Routine 11/01/2021 3:25 PM CDT POCT GLUCOSE - MELLO DOCKED DEVICE Routine 11/01/2021 11:30 AM CDT XR CHEST PA+LAT Routine 11/01/2021 8:15 AM CDT PRO-BRAIN NATRIURETIC PEPTIDE Routine 11/01/2021 7:28 AM CDT PROTHROMBIN TIME, VENOUS Routine 11/01/2021 7:28 AM CDT COMPREHENSIVE METABOLIC PANEL Routine 11/01/2021 7:28 AM CDT CBC W/DIFF AUTOMATED Routine 11/01/2021 7:28 AM CDT POCT GLUCOSE - MELLO DOCKED DEVICE Routine 11/01/2021 6:52 AM CDT POCT GLUCOSE - MELLO DOCKED DEVICE Routine 10/31/2021 9:15 PM CDT POCT GLUCOSE - MELLO DOCKED DEVICE Routine 10/31/2021 5:24 PM CDT POCT GLUCOSE - MELLO DOCKED DEVICE Routine 10/31/2021 4:55 PM CDT POCT GLUCOSE - MELLO DOCKED DEVICE Routine 10/31/2021 4:44 PM CDT NM PHARM NUC STRESS TEST 1DAY W TRACING Routine 10/31/2021 1:39 PM CDT POCT GLUCOSE - MELLO DOCKED DEVICE Routine 10/31/2021 12:27 PM CDT PATHOLOGY SLIDE CONSULT Routine 10/31/2021 7:14 AM CDT PROTHROMBIN TIME, VENOUS Routine 10/31/2021 7:14 AM CDT COMPREHENSIVE METABOLIC PANEL Routine 10/31/2021 7:14 AM CDT CBC W/DIFF AUTOMATED Routine 10/31/2021 7:14 AM CDT MAGNESIUM Routine 10/31/2021 7:14 AM CDT STRESS TEST ONLY, EXERCISE Routine 10/31/2021 7:05 AM CDT POCT GLUCOSE - MELLO DOCKED DEVICE Routine 10/31/2021 6:43 AM CDT POCT GLUCOSE - MELLO DOCKED DEVICE Routine 10/30/2021 9:37 PM CDT POCT GLUCOSE - MELLO DOCKED DEVICE Routine 10/30/2021 3:52 PM CDT TSH W/REFLEX Routine 10/30/2021 11:55 AM CDT THYROXINE, FREE (FT4) Routine 10/30/2021 11:55 AM CDT TROPONIN, QUANT Routine 10/30/2021 11:55 AM CDT POCT GLUCOSE - MELLO DOCKED DEVICE Routine 10/30/2021 11:06 AM CDT ECG 12-LEAD STAT 10/30/2021 9:36 AM CDT PROTHROMBIN TIME, VENOUS Routine 10/30/2021 6:59 AM CDT COMPREHENSIVE METABOLIC PANEL Routine 10/30/2021 6:59 AM CDT CBC W/DIFF AUTOMATED Routine 10/30/2021 6:59 AM CDT POCT GLUCOSE - MELLO DOCKED DEVICE Routine 10/30/2021 5:54 AM CDT POCT GLUCOSE - MELLO DOCKED DEVICE Routine 10/29/2021 7:27 PM CDT POCT GLUCOSE - MELLO DOCKED DEVICE Routine 10/29/2021 4:06 PM CDT POCT GLUCOSE - MELLO DOCKED DEVICE Routine 10/29/2021 11:54 AM CDT PROTHROMBIN TIME, VENOUS Routine 10/29/2021 7:04 AM CDT COMPREHENSIVE METABOLIC PANEL Routine 10/29/2021 7:04 AM CDT CBC W/DIFF AUTOMATED Routine 10/29/2021 7:04 AM CDT POCT GLUCOSE - MELLO DOCKED DEVICE Routine 10/29/2021 5:50 AM CDT COMPREHENSIVE METABOLIC PANEL Routine 10/28/2021 7:22 PM CDT MAGNESIUM Routine 10/28/2021 7:22 PM CDT ECG 12-LEAD Routine 10/28/2021 6:07 PM CDT POCT GLUCOSE - MELLO DOCKED DEVICE Routine 10/28/2021 3:46 PM CDT POCT GLUCOSE - MELLO DOCKED DEVICE Routine 10/28/2021 11:56 AM CDT PATHOLOGY SLIDE CONSULT Routine 10/28/2021 8:05 AM CDT PROTHROMBIN TIME, VENOUS Routine 10/28/2021 8:05 AM CDT COMPREHENSIVE METABOLIC PANEL Routine 10/28/2021 8:05 AM CDT CBC W/DIFF AUTOMATED Routine 10/28/2021 8:05 AM CDT POCT GLUCOSE - MELLO DOCKED DEVICE Routine 10/28/2021 5:46 AM CDT POCT GLUCOSE - MELLO DOCKED DEVICE Routine 10/27/2021 7:53 PM CDT POCT GLUCOSE - MELLO DOCKED DEVICE Routine 10/27/2021 4:16 PM CDT POCT GLUCOSE - MELLO DOCKED DEVICE Routine 10/27/2021 11:[address] ABD+PEL WO CON STAT 10/27/2021 9:0 1 AM CDT PROTHROMBIN TIME, VENOUS Routine 10/27/2021 7:37 AM CDT COMPREHENSIVE METABOLIC PANEL Routine 10/27/2021 7:37 AM CDT CBC W/DIFF AUTOMATED Routine 10/27/2021 7:37 AM CDT MAGNESIUM Routine 10/27/2021 7:37 AM CDT POCT GLUCOSE - MELLO DOCKED DEVICE Routine 10/27/2021 6:35 AM CDT POCT GLUCOSE - MELLO DOCKED DEVICE Routine 10/26/2021 7:57 PM CDT POCT GLUCOSE - MELLO DOCKED DEVICE Routine 10/26/2021 3:06 PM CDT POCT GLUCOSE - MELLO DOCKED DEVICE Routine 10/26/2021 5:38 AM CDT PROTHROMBIN TIME, VENOUS Routine 10/26/2021 4:15 AM CDT COMPREHENSIVE METABOLIC PANEL Routine 10/26/2021 4:15 AM CDT CBC W/DIFF AUTOMATED Routine 10/26/2021 4:15 AM CDT MAGNESIUM Routine 10/26/2021 4:15 AM CDT POCT GLUCOSE - MELLO DOCKED DEVICE Routine 10/25/2021 8:45 PM CDT MRI BRAIN WO CON Today 10/25/2021 8:16 PM CDT POCT GLUCOSE - MELLO DOCKED DEVICE Routine 10/25/2021 4:18 PM CDT POCT GLUCOSE - MELLO DOCKED DEVICE Routine 10/25/2021 1:19 PM CDT EEG ROUTINE Routine 10/25/2021 10:[address] CHEST WO CON MEGAN 10/25/2021 8:28 AM CDT POCT GLUCOSE - MELLO DOCKED DEVICE Routine 10/25/2021 6:37 AM CDT PATHOLOGY SLIDE CONSULT Routine 10/25/2021 5:50 AM CDT CULTURE RESPIRATORY W/ GRAM STAIN Routine 10/25/2021 5:50 AM CDT VITAMIN B-12 Routine 10/25/2021 5:50 AM CDT PROTHROMBIN TIME, VENOUS Routine 10/25/2021 5:50 AM CDT COMPREHENSIVE METABOLIC PANEL Routine 10/25/2021 5:50 AM CDT FOLIC ACID SERUM Routine 10/25/2021 5:50 AM CDT CBC W/DIFF AUTOMATED Routine 10/25/2021 5:50 AM CDT MAGNESIUM Routine 10/25/2021 5:50 AM CDT POCT GLUCOSE - MELLO DOCKED DEVICE Routine 10/24/2021 8:15 PM CDT POCT GLUCOSE - MELLO DOCKED DEVICE Routine 10/24/2021 4:59 PM CDT TROPONIN, QUANT TIMED 10/24/2021 4:46 PM CDT TROPONIN, QUANT TIMED 10/24/2021 1:53 PM CDT POCT GLUCOSE - MELLO DOCKED DEVICE Routine 10/24/2021 11:44 AM CDT POCT GLUCOSE - MELLO DOCKED DEVICE Routine 10/24/2021 6:47 AM CDT BLOOD GAS, ARTERIAL LAB Routine 10/24/2021 6:14 AM CDT PROTHROMBIN TIME, VENOUS Routine 10/24/2021 3:51 AM CDT BASIC METABOLIC PANEL Routine 10/24/2021 3:51 AM CDT CBC W/DIFF AUTOMATED Routine 10/24/2021 3:51 AM CDT POCT GLUCOSE - MELLO DOCKED DEVICE Routine 10/23/2021 8:34 PM CDT SODIUM, SERUM TIMED 10/23/2021 5:54 PM CDT POCT GLUCOSE - MELLO DOCKED DEVICE Routine 10/23/2021 4:13 PM CDT POCT GLUCOSE - MELLO DOCKED DEVICE Routine 10/23/2021 11:53 AM CDT HC URINALYSIS AUTO W/O MICRO STAT 10/23/2021 6:50 AM CDT POCT GLUCOSE - MELLO DOCKED DEVICE Routine 10/23/2021 6:31 AM CDT BLOOD GAS, ARTERIAL LAB Routine 10/23/2021 5:05 AM CDT PROTHROMBIN TIME, VENOUS Routine 10/23/2021 4:20 AM CDT BASIC METABOLIC PANEL Routine 10/23/2021 4:20 AM CDT CBC W/DIFF AUTOMATED Routine 10/23/2021 4:20 AM CDT SODIUM, SERUM TIMED 10/23/2021 4:20 AM CDT MAGNESIUM Routine 10/23/2021 4:20 AM CDT PROTHROMBIN TIME, VENOUS STAT 10/22/2021 11:50 PM CDT SODIUM, SERUM STAT 10/22/2021 11:50 PM CDT POCT GLUCOSE - MELLO DOCKED DEVICE Routine 10/22/2021 11:00 PM CDT BLOOD GAS, ARTERIAL, W/LYTES GLU LAC STAT 10/22/2021 9:08 PM CDT BLOOD GAS, ARTERIAL LAB STAT 10/22/2021 8:08 PM CDT XR CHEST PORTABLE STAT 10/22/2021 6:1 9 PM CDT PATHOLOGY SLIDE CONSULT STAT 10/22/2021 6:17 PM CDT PROCALCITONIN (PCT) STAT 10/22/2021 6 :17 PM CDT COMPREHENSIVE METABOLIC PANEL STAT 10/22/2021 6:17 PM CDT LACTIC ACID TIMED 10/22/2021 6:17 PM CDT CULTURE, BACTERIA, BLOOD STAT 10/22/2021 6:17 PM CDT CULTURE, BACTERIA, BLOOD STAT 10/22/2021 6:17 PM CDT CBC W/DIFF AUTOMATED STAT 10/22/2021 6:17 PM CDT TROPONIN, QUANT STAT 10/22/2021 6:17 PM CDT ECG 12-LEAD Routine 10/22/2021 6:11 PM CDT documented in this encounter Results * POCT glucose (11/05/2021 12:12 PM CDT) GLUCOSE POC 99 70 - 99 mg/dL 11/05/2021 12:15 PM CDT [facility] 11/05/2021 12:1 2 PM CDT Tere Nelson PA-C POCT ORDERABLES - DEVICE Final Result [facility] [address] [place] [address], [place] [phone] * (ABNORMAL) COMPREHENSIVE METABOLIC PANEL (11/05/2021 7:02 AM CDT) GLUCOSE 76 70 - 99 MG/DL 11/05/2021 9:00 AM CDT [facility] BUN 24(H) 7 - 18 MG/DL 11/05/2021 9:00 AM CDT [facility] CREATININE S/P/B 1.22(H) 0.55 - 1.02 MG/DL 11/05/2021 9:00 AM CDT [facility] SODIUM S/P/B 139 136 - 145 MMOL/L 11/05/2021 9:00 AM CDT [facility] POTASSIUM S/P/B 4.1 3.5 - 5.1 MMOL/L 11/05/2021 9:00 AM CDT [facility] CHLORIDE S/P/B 106 100 - 108 MMOL/L 11/05/2021 9:00 AM CDT [facility] CO2 30.7 21 - 32 MMOL/L 11/05/2021 9:00 AM CDT [facility] CALCIUM S/P/B 9.8 8.5 - 10.1 MG/DL 11/05/2021 9:00 AM [facility] BILIRUBIN TOTAL S/P/B 0.5 0.2 - 1.2 MG/DL 11/05/2021 9:00 AM [facility] Comment: THIS ASSAY IS NOT RECOMMENDED FOR PATIENTS UNDERGOING TREATMENT WITH ELTROMBOPAG DUE TO THE POTENTIAL FOR FALSELY ELEVATED RESULTS. TOTAL PROTEIN S/P/B 5.6(L) 6.4 - 8.2 G/DL 11/05/2021 9:00 AM [facility] ALBUMIN S/P/B 2.5(L) 3.4 - 5.0 G/DL 11/05/2021 9:00 AM [facility] AST 22 15 - 37 U/L 11/05/2021 9:00 AM [facility] ALT 21 14 - 55 U/L 11/05/2021 9:00 AM [facility] ALKALINE PHOSPHATASE S/P/B 89 50 - 136 U/L 11/05/2021 9:00 AM [facility] ANION GAP 2.3(L) 5 - 15 MMOL/L 11/05/2021 9:00 AM [facility] BUN CREATININE RATIO 19.7 6 - 26 11/05/2021 9:00 AM [facility] A/G RATIO 0.8(L) 1.0 - 2.0 RATIO 11/05/2021 9:00 AM [facility] GFR ESTIMATE 46(L) >90 ML/MIN/1.7 3 M2 11/05/2021 9:00 AM [facility] Comment: NOTE: eGFR is not calculated for patients <18 years of age. This is an estimated GFR calculation using the new CKD EPI creatinine equation without race and so does not require a correction factor for race. This estimated GFR should not be used for calculating drug doses. 11/05/2021 7:02 AM CDT Tere Nelson PA-C LABORATORY Final Result [facility] [address] [place] [address], [place] [phone] * (ABNORMAL) CBC W/DIFF AUTOMATED (11/05/2021 7:02 AM CDT) WBC 4.4(L) 4.5 - 11.0 x10'3/uL 11/05/2021 8:56 AM CDT [facility] RBC 2.61(L) 4.20 - 5.40 x10'6/uL 11/05/2021 8:56 AM CDT [facility] HGB 8.2(L) 12.0 - 16.0 G/DL 11/05/2021 8:56 AM CDT [facility] HCT 26.8(L) 38.0 - 48.0 % 11/05/2021 8:56 AM CDT [facility] MCV 102.7(H) 81.0 - 99.0 FL 11/05/2021 8:56 AM CDT [facility] MCH 31.4(H) 27.0 - 31.0 PG 11/05/2021 8:56 AM CDT [facility] MCHC 30.6(L) 32.0 - 36.0 G/DL 11/05/2021 8:56 AM CDT [facility] RDW 12.6 11.5 - 14.5 % 11/05/2021 8:56 AM CDT [facility] PLT 201 130 - 400 x10'3/uL 11/05/2021 8:56 AM CDT [facility] MPV 13.3(H) 9.3 - 12.2 FL 11/05/2021 8:56 AM CDT [facility] DIFFERENTIAL TYPE AUTOMATED DIFFERENTIAL 11/05/2021 8:56 AM CDT [facility] NEUTROPHILS % 51.2 % 11/05/2021 8:56 AM CDT [facility] LYMPHOCYTES % 25.5 % 11/05/2021 8:56 AM CDT [facility] MONOCYTES % 18.3 % 11/05/2021 8:56 AM CDT [facility] EOSINOPHILS 4.3 % 11/05/2021 8:56 AM CDT [facility] BASOPHILS 0.7 % 11/05/2021 8:56 AM CDT [facility] IMMATURE GRANS % 0.0 % 11/06/19 8:56 AM CDT [facility] ABS. NEUTROPHILS TOTAL 2.27 1.80 - 7.70 x10'3/uL 11/05/2021 8:56 AM CDT [facility] ABS. LYMPHOCYTES 1.13 1.00 - 4.80 x10'3/uL 11/05/2021 8:56 AM T [facility] ABS. MONOCYTES 0.81 0.24 - 0.86 x10'3/uL 11/05/2021 8:56 AM CDT [facility] ABS. EOSINOPHILS 0.19 0.04 - 0.36 x10'3/uL 11/05/2021 8:56 AM CDT [facility] ABS. BASOPHILS 0.03 0.01 - 0.08 x10'3/uL 11/05/2021 8:56 AM T [facility] ABS. IMMATURE GRANULOCYTES 0.00 0.00 - 0.49 x10'3/uL 11/05/2021 8:56 AM CDT [facility] 11/05/2021 7:02 AM CDT Tere Nelson PA-C LABORATORY Final Result Performing Organization Address City/[facility] Co de Phone Number [facility] [address] [place] [address], [place] [phone] * MAGNESIUM (11/05/2021 7:02 AM CDT) MAGNESIUM 2.0 1.8 - 2.4 MG/DL 11/05/2021 9:00 AM CDT [facility] 11/05/2021 7:02 AM CDT Jayy Jo MD LABORATORY Final Result Performing Organization Address [facility] de Phone Number [facility] [address] [place] [address], [place] [phone] * (ABNORMAL) PROTIME/INR, VENOUS (11/05/2021 7:02 AM CDT) PROTIME 32.3(H) 10.2 - 12.9 SEC 11/05/2021 8:20 AM CDT [facility] INR 2.8 11/05/2021 8:20 AM CDT [facility] Comment: Recommended INR Therapeutic Goals: ??2.0-3.0 Routine Therapy ??2.5-3.5 Mechanical Prosthetic Valves (High Risk) 11/05/2021 7:02 AM CDT Gunner Vargas MD LABORATORY Final Result Performing Organization Address [facility] Co de Phone Number [facility] [address] [place] [address], [place] [phone] * POCT glucose (11/05/2021 5:44 AM CDT) GLUCOSE POC 87 70 - 99 mg/dL 11/05/2021 5:51 AM CDT [facility] 11/05/2021 5:44 AM CDT Tere Nelson PA-C POCT ORDERABLES - DEVICE Final Result [facility] [address] [place] [phone], * (ABNORMAL) POCT glucose (11/04/2021 7:39 PM CDT) GLUCOSE POC 165(H) 70 - 99 mg/dL 11/04/2021 8:30 PM CDT [facility] 11/04/2021 7:39 PM CDT Tere Nelson PA-C POCT ORDERABLES - DEVICE Final Result Performing Organization Address City/[facility] Co de Phone Number [facility] [address] [place] [phone], * MAGNESIUM (11/04/2021 8:11 AM CDT) MAGNESIUM 2.0 1.8 - 2.4 MG/DL 11/04/2021 9:30 AM CDT [facility] 11/04/2021 8:11 AM CDT Jayy Jo MD LABORATORY Final Result Performing Organization Address City/[facility]/ZIP Co de Phone Number [facility] [address] [place] [phone], * (ABNORMAL) COMPREHENSIVE METABOLIC PANEL (11/04/2021 8:11 AM CDT) [facility] GLUCOSE 74 70 - 99 MG/DL 11/04/2021 9:30 AM CDT [facility] BUN 21(H) 7 - 18 MG/DL 11/04/2021 9:30 AM CDT [facility] CREATININE S/P/B 1.09(H) 0.55 - 1.02 MG/DL 11/04/2021 9:30 AM CDT [facility] SODIUM S/P/B 142 136 - 145 MMOL/L 11/04/2021 9:30 AM CDT [facility] POTASSIUM S/P/B 4.5 3.5 - 5.1 MMOL/L 11/04/2021 9:30 AM CDT [facility] CHLORIDE S/P/B 109(H) 100 - 108 MMOL/L 11/04/2021 9:30 AM CDT [facility] CO2 31.0 21 - 32 MMOL/L 11/04/2021 9:30 AM CDT [facility] CALCIUM S/P/B 10.2(H) 8.5 - 10.1 MG/DL 11/04/2021 9:30 AM CDT [facility] BILIRUBIN TOTAL S/P/B 0.4 0.2 - 1.2 MG/DL 11/04/2021 9:30 AM CDT [facility] Comment: THIS ASSAY IS NOT RECOMMENDED FOR PATIENTS UNDERGOING TREATMENT WITH ELTROMBOPAG DUE TO THE POTENTIAL FOR FALSELY ELEVATED RESULTS. TOTAL PROTEIN S/P/B 5.5(L) 6.4 - 8.2 G/DL 11/04/2021 9:30 AM CDT [facility] ALBUMIN S/P/B 2.4(L) 3.4 - 5.0 G/DL 11/04/2021 9:30 AM CDT [facility] AST 21 15 - 37 U/L 11/04/2021 9:30 AM CDT [facility] ALT 24 14 - 55 U/L 11/04/2021 9:30 AM CDT [facility] ALKALINE PHOSPHATASE S/P/B 86 50 - 136 U/L 11/04/2021 9:30 AM CDT [facility] ANION GAP 2.0(L) 5 - 15 MMOL/L 11/04/2021 9:30 AM T [facility] BUN CREATININE RATIO 19.3 6 - 26 11/04/2021 9:30 AM T [facility] A/G RATIO 0.8(L) 1.0 - 2.0 RATIO 11/04/2021 9:30 AM T [facility] GFR ESTIMATE 52(L) >90 ML/MIN/1.7 3 M2 11/04/2021 9:30 AM T [facility] Comment: NOTE: eGFR is not calculated for patients <18 years of age. This is an estimated GFR calculation using the new CKD EPI creatinine equation without race and so does not require a correction factor for race. This estimated GFR should not be used for calculating drug doses. 11/04/2021 8:11 AM CDT Jayy Jo MD LABORATORY Final Result [facility] [address] [place] [address], [place] [phone] * (ABNORMAL) CBC W/DIFF AUTOMATED (11/04/2021 8:11 AM CDT) WBC 4.7 4.5 - 11.0 x10'3/uL 11/04/2021 9:55 AM CDT [facility] RBC 2.54(L) 4.20 - 5.40 x10'6/uL 11/04/2021 9:55 AM CDT [facility] HGB 7.9(L) 12.0 - 16.0 G/DL 11/04/2021 9:55 AM CDT [facility] HCT 26.3(L) 38.0 - 48.0 % 11/04/2021 9:55 AM CDT [facility] MCV 103.5(H) 81.0 - 99.0 FL 11/04/2021 9:55 AM CDT [facility] MCH 31.1(H) 27.0 - 31.0 PG 11/04/2021 9:55 AM CDT [facility] MCHC 30.0(L) 32.0 - 36.0 G/DL 11/04/2021 9:55 AM CDT [facility] RDW 12.5 11.5 - 14.5 % 11/04/2021 9:55 AM CDT [facility] PLT 189 130 - 400 x10'3/uL 11/04/2021 9:55 AM T [facility] MPV 13.1(H) 9.3 - 12.2 FL 11/04/2021 9:55 AM CDT [facility] DIFFERENTIAL TYPE AUTOMATED DIFFERENTIAL 11/04/2021 9:55 AM CDT [facility] NEUTROPHILS % 55.1 % 11/04/2021 9:55 AM CDT [facility] LYMPHOCYTES % 20.1 % 11/04/2021 9:55 AM T [facility] MONOCYTES % 18.6 % 11/04/2021 9:55 AM CDT [facility] EOSINOPHILS 5.1 % 11/04/2021 9:55 AM CDT [facility] BASOPHILS 0.9 % 11/04/2021 9:55 AM CDT [facility] IMMATURE GRANS % 0.2 % 11/05/19 9:55 AM CDT [facility] ABS. NEUTROPHILS TOTAL 2.58 1.80 - 7.70 x10'3/uL 11/04/2021 9:55 AM CDT [facility] ABS. LYMPHOCYTES 0.94(L) 1.00 - 4.80 x10'3/uL 11/04/2021 9:55 AM CDT [facility] ABS. MONOCYTES 0.87(H) 0.24 - 0.86 x10'3/uL 11/04/2021 9:55 AM CDT [facility] ABS. EOSINOPHILS 0.24 0.04 - 0.36 x10'3/uL 11/04/2021 9:55 AM CDT [facility] ABS. BASOPHILS 0.04 0.01 - 0.08 x10'3/uL 11/04/2021 9:55 AM CDT [facility] ABS. IMMATURE GRANULOCYTES 0.01 0.00 - 0.49 x10'3/uL 11/04/2021 9:55 AM CDT [facility] 11/04/2021 8:11 AM CDT us Jayy Jo MD LABORATORY Final Result [facility] [address] [place] [address], [place] [phone] * (ABNORMAL) PROTIME/INR, VENOUS (11/04/2021 8:11 AM CDT) PROTIME 27.7(H) 10.2 - 12.9 SEC 11/04/2021 9:22 AM CDT [facility] INR 2.4 11/04/2021 9:22 AM CDT [facility] Comment: Recommended INR Therapeutic Goals: ??2.0-3.0 Routine Therapy ??2.5-3.5 Mechanical Prosthetic Valves (High Risk) 11/04/2021 8:11 AM CDT Gunner Vargas MD LABORATORY Final Result Performing Organization Address [facility] de Phone Number [facility] [address] [place] [address], [place] [phone] * (ABNORMAL) POCT glucose (11/03/2021 3:24 PM CDT) GLUCOSE POC 117(H) 70 - 99 mg/dL 11/03/2021 3:29 PM CDT [facility] 11/03/2021 3:24 PM CDT us Jayy Jo MD POCT ORDERABLES - DEVICE Final R esult Performing Organization Address [facility] de Phone Number [facility] [address] [place] [address], [place] [phone] * (ABNORMAL) POCT glucose (11/03/2021 11:47 AM CDT) GLUCOSE POC 131(H) 70 - 99 mg/dL 11/03/2021 11:54 AM CDT [facility] 11/03/2021 11:4 7 AM CDT us Jayy Jo MD POCT ORDERABLES - DEVICE Final R esult Performing Organization Address City/[facility] Co de Phone Number [facility] [address] [place] [address], [place] [phone] * (ABNORMAL) MAGNESIUM (11/03/2021 6:49 AM CDT) [facility] MAGNESIUM 1.6(L) 1.8 - 2.4 MG/DL 11/03/2021 7:46 AM CDT [facility] 11/03/2021 6:49 AM CDT Jayy Jo MD LABORATORY Final Result [facility] [address] [place] [address], [place] [phone] * (ABNORMAL) COMPREHENSIVE METABOLIC PANEL (11/03/2021 6:49 AM CDT) [facility] GLUCOSE 75 70 - 99 MG/DL 11/03/2021 7:46 AM CDT [facility] BUN 22(H) 7 - 18 MG/DL 11/03/2021 7:46 AM CDT [facility] CREATININE S/P/B 1.11(H) 0.55 - 1.02 MG/DL 11/03/2021 7:46 AM CDT [facility] SODIUM S/P/B 143 136 - 145 MMOL/L 11/03/2021 7:46 AM CDT [facility] POTASSIUM S/P/B 4.5 3.5 - 5.1 MMOL/L 11/03/2021 7:46 AM CDT [facility] CHLORIDE S/P/B 113(H) 100 - 108 MMOL/L 11/03/2021 7:46 AM CDT [facility] CO2 29.5 21 - 32 MMOL/L 11/03/2021 7:46 AM CDT [facility] CALCIUM S/P/B 10.3(H) 8.5 - 10.1 MG/DL 11/03/2021 7:46 AM T [facility] BILIRUBIN TOTAL S/P/B 0.4 0.2 - 1.2 MG/DL 11/03/2021 7:46 AM [facility] Comment: THIS ASSAY IS NOT RECOMMENDED FOR PATIENTS UNDERGOING TREATMENT WITH ELTROMBOPAG DUE TO THE POTENTIAL FOR FALSELY ELEVATED RESULTS. TOTAL PROTEIN S/P/B 5.5(L) 6.4 - 8.2 G/DL 11/03/2021 7:46 AM T [facility] ALBUMIN S/P/B 2.4(L) 3.4 - 5.0 G/DL 11/03/2021 7:46 AM [facility] AST 20 15 - 37 U/L 11/03/2021 7:46 AM [facility] ALT 25 14 - 55 U/L 11/03/2021 7:46 AM T [facility] ALKALINE PHOSPHATASE S/P/B 82 50 - 136 U/L 11/03/2021 7:46 AM [facility] ANION GAP 0.5(L) 5 - 15 MMOL/L 11/03/2021 7:46 AM [facility] BUN CREATININE RATIO 19.8 6 - 26 11/03/2021 7:46 AM [facility] A/G RATIO 0.8(L) 1.0 - 2.0 RATIO 11/03/2021 7:46 AM [facility] GFR ESTIMATE 51(L) >90 ML/MIN/1.7 3 M2 11/03/2021 7:46 AM [facility] Comment: NOTE: eGFR is not calculated for patients <18 years of age. This is an estimated GFR calculation using the new CKD EPI creatinine equation without race and so does not require a correction factor for race. This estimated GFR should not be used for calculating drug doses. 11/03/2021 6:49 AM CDT Jayy Jo MD LABORATORY Final Result [facility] [address] [place] [address], * (ABNORMAL) CBC W/DIFF AUTOMATED (11/03/2021 6:49 AM CDT) WBC 4.8 4.5 - 11.0 x10'3/uL 11/03/2021 7:50 AM CDT [facility] RBC 2.57(L) 4.20 - 5.40 x10'6/uL 11/03/2021 7:50 AM CDT [facility] HGB 7.9(L) 12.0 - 16.0 G/DL 11/03/2021 7:50 AM CDT [facility] HCT 26.5(L) 38.0 - 48.0 % 11/03/2021 7:50 AM CDT [facility] MCV 103.1(H) 81.0 - 99.0 FL 11/03/2021 7:50 AM CDT [facility] MCH 30.7 27.0 - 31.0 PG 11/03/2021 7:50 AM CDT [facility] MCHC 29.8(L) 32.0 - 36.0 G/DL 11/03/2021 7:50 AM CDT [facility] RDW 12.5 11.5 - 14.5 % 11/03/2021 7:50 AM CDT [facility] PLT 188 130 - 400 x10'3/uL 11/03/2021 7:50 AM CDT [facility] MPV 13.2(H) 9.3 - 12.2 FL 11/03/2021 7:50 AM CDT [facility] DIFFERENTIAL TYPE AUTOMATED DIFFERENTIAL 11/03/2021 7:50 AM CDT [facility] NEUTROPHILS % 52.8 % 11/03/2021 7:50 AM CDT [facility] LYMPHOCYTES % 23.4 % 11/03/2021 7:50 AM CDT [facility] MONOCYTES % 17.6 % 11/03/2021 7:50 AM CDT [facility] EOSINOPHILS 5.0 % 11/03/2021 7:50 AM CDT [facility] BASOPHILS 1.0 % 11/03/2021 7:50 AM CDT [facility] IMMATURE GRANS % 0.2 % 11/04/19 7:50 AM CDT [facility] ABS. NEUTROPHILS TOTAL 2.55 1.80 - 7.70 x10'3/uL 11/03/2021 7:50 AM CDT [facility] ABS. LYMPHOCYTES 1.13 1.00 - 4.80 x10'3/uL 11/03/2021 7:50 AM CDT [facility] ABS. MONOCYTES 0.85 0.24 - 0.86 x10'3/uL 11/03/2021 7:50 AM CDT [facility] ABS. EOSINOPHILS 0.24 0.04 - 0.36 x10'3/uL 11/03/2021 7:50 AM CDT [facility] ABS. BASOPHILS 0.05 0.01 - 0.08 x10'3/uL 11/03/2021 7:50 AM CDT [facility] ABS. IMMATURE GRANULOCYTES 0.01 0.00 - 0.49 x10'3/uL 11/03/2021 7:50 AM CDT [facility] 11/03/2021 6:49 AM CDT us Jayy Jo MD LABORATORY Final Result Performing Organization Address [facility] Co de Phone Number [facility] [address] [place] [address], [place] [phone] * (ABNORMAL) PROTIME/INR, VENOUS (11/03/2021 6:49 AM CDT) PROTIME 25.0(H) 10.2 - 12.9 SEC 11/03/2021 7:48 AM CDT [facility] INR 2.2 11/03/2021 7:48 AM CDT [facility] Comment: Recommended INR Therapeutic Goals: ??2.0-3.0 Routine Therapy ??2.5-3.5 Mechanical Prosthetic Valves (High Risk) 11/03/2021 6:49 AM CDT Gunner Vargas MD LABORATORY Final Result Performing Organization Address [facility] Co de Phone Number [facility] [address] [place] [address], [place] [phone] * POCT glucose (11/03/2021 5:47 AM CDT) GLUCOSE POC 76 70 - 99 mg/dL 11/03/2021 5:55 AM CDT [facility] 11/03/2021 5:47 AM CDT us Jayy Jo MD POCT ORDERABLES - DEVICE Final R esult Performing Organization Address City/[facility]/ZIP Co de Phone Number [facility] [address] [place] [address], [place] [phone] * (ABNORMAL) POCT glucose (11/02/2021 8:39 PM CDT) GLUCOSE POC 161(H) 70 - 99 mg/dL 11/02/2021 8:45 PM CDT [facility] 11/02/2021 8:39 PM CDT us Jayy Jo MD POCT ORDERABLES - DEVICE Final R esult Performing Organization Address City/[facility]/ZIP Co de Phone Number [address] [address], [place] [phone] * (ABNORMAL) POCT glucose (11/02/2021 3:48 PM CDT) GLUCOSE POC 184(H) 70 - 99 mg/dL 11/02/2021 3:52 PM CDT [facility] 11/02/2021 3:48 PM CDT us Jayy Jo MD POCT ORDERABLES - DEVICE Final R esult Performing Organization Address City/[facility]/ZIP Co de Phone Number [address] [address], [place] [phone] * (ABNORMAL) POCT glucose (11/02/2021 11:08 AM CDT) GLUCOSE POC 175(H) 70 - 99 mg/dL 11/02/2021 11:23 AM CDT [facility] 11/02/2021 11:0 8 AM CDT us Jayy Jo MD POCT ORDERABLES - DEVICE Final R esult [facility] [address] [place] [address], * (ABNORMAL) COMPREHENSIVE METABOLIC PANEL (11/02/2021 6:37 AM CDT) [facility] Signature GLUCOSE 76 70 - 99 MG/DL 11/02/2021 7:34 AM CDT [facility] BUN 19(H) 7 - 18 MG/DL 11/02/2021 7:34 AM CDT [facility] CREATININE S/P/B 1.15(H) 0.55 - 1.02 MG/DL 11/02/2021 7:34 AM CDT [facility] SODIUM S/P/B 141 136 - 145 MMOL/L 11/02/2021 7:34 AM CDT [facility] POTASSIUM S/P/B 4.7 3.5 - 5.1 MMOL/L 11/02/2021 7:34 AM CDT [facility] CHLORIDE S/P/B 111(H) 100 - 108 MMOL/L 11/02/2021 7:34 AM CDT [facility] CO2 31.3 21 - 32 MMOL/L 11/02/2021 7:34 AM CDT [facility] CALCIUM S/P/B 9.8 8.5 - 10.1 MG/DL 11/02/2021 7:34 AM CDT [facility] BILIRUBIN TOTAL S/P/B 0.4 0.2 - 1.2 MG/DL 11/02/2021 7:34 AM CDT [facility] Comment: THIS ASSAY IS NOT RECOMMENDED FOR PATIENTS UNDERGOING TREATMENT WITH ELTROMBOPAG DUE TO THE POTENTIAL FOR FALSELY ELEVATED RESULTS. TOTAL PROTEIN S/P/B 5.3(L) 6.4 - 8.2 G/DL 11/02/2021 7:34 AM CDT [facility] ALBUMIN S/P/B 2.3(L) 3.4 - 5.0 G/DL 11/02/2021 7:34 AM CDT [facility] AST 19 15 - 37 U/L 11/02/2021 7:34 AM CDT [facility] ALT 23 14 - 55 U/L 11/02/2021 7:34 AM CDT [facility] ALKALINE PHOSPHATASE S/P/B 82 50 - 136 U/L 11/02/2021 7:34 AM T [facility] ANION GAP NOT CALCULATED 5 - 15 MMOL/L 11/02/2021 7:34 AM CDT [facility] BUN CREATININE RATIO 16.5 6 - 26 11/02/2021 7:34 AM T [facility] A/G RATIO 0.8(L) 1.0 - 2.0 RATIO 11/02/2021 7:34 AM T [facility] GFR ESTIMATE 49(L) >90 ML/MIN/1. 73 M2 11/02/2021 7:34 AM T [facility] Comment: NOTE: eGFR is not calculated for patients <18 years of age. This is an estimated GFR calculation using the new CKD EPI creatinine equation without race and so does not require a correction factor for race. This estimated GFR should not be used for calculating drug doses. 11/02/2021 6:37 AM CDT us Ashu Deng MD LABORATORY Final Result [facility] [address] [place] [address], [place] [phone] * (ABNORMAL) CBC W/DIFF AUTOMATED (11/02/2021 6:37 AM CDT) WBC 5.1 4.5 - 11.0 x10'3/uL 11/02/2021 7:05 AM T [facility] RBC 2.39(L) 4.20 - 5.40 x10'6/uL 11/02/2021 7:05 AM T [facility] HGB 7.5(L) 12.0 - 16.0 G/DL 11/02/2021 7:05 AM T [facility] HCT 24.9(L) 38.0 - 48.0 % 11/02/2021 7:05 AM T [facility] MCV 104.2(H) 81.0 - 99.0 FL 11/02/2021 7:05 AM [facility] MCH 31.4(H) 27.0 - 31.0 PG 11/02/2021 7:05 AM T [facility] MCHC 30.1(L) 32.0 - 36.0 G/DL 11/02/2021 7:05 AM T [facility] RDW 12.2 11.5 - 14.5 % 11/02/2021 7:05 AM [facility] PLT 177 130 - 400 x10'3/uL 11/02/2021 7:05 AM [facility] MPV 12.4(H) 9.3 - 12.2 FL 11/02/2021 7:05 AM [facility] DIFFERENTIAL TYPE AUTOMATED DIFFERENTIAL 11/02/2021 7:05 AM T [facility] NEUTROPHILS % 54.3 % 11/02/2021 7:05 AM [facility] LYMPHOCYTES % 21.8 % 11/02/2021 7:05 AM [facility] MONOCYTES % 17.0 % 11/02/2021 7:05 AM CDT [facility] EOSINOPHILS 5.5 % 11/02/2021 7:05 AM CDT [facility] BASOPHILS 1.0 % 11/02/2021 7:05 AM CDT [facility] IMMATURE GRANS % 0.4 % 11/03/19 7:05 AM CDT [facility] ABS. NEUTROPHILS TOTAL 2.79 1.80 - 7.70 x10'3/uL 11/02/2021 7:05 AM CDT [facility] ABS. LYMPHOCYTES 1.12 1.00 - 4.80 x10'3/uL 11/02/2021 7:05 AM CDT [facility] ABS. MONOCYTES 0.87(H) 0.24 - 0.86 x10'3/uL 11/02/2021 7:05 AM CDT [facility] ABS. EOSINOPHILS 0.28 0.04 - 0.36 x10'3/uL 11/02/2021 7:05 AM CDT [facility] ABS. BASOPHILS 0.05 0.01 - 0.08 x10'3/uL 11/02/2021 7:05 AM CDT [facility] ABS. IMMATURE GRANULOCYTES 0.02 0.00 - 0.49 x10'3/uL 11/02/2021 7:05 AM CDT [facility] 11/02/2021 6:37 AM CDT us Ashu Taz Deng MD LABORATORY Final Result [facility] [address] [place] [address], [place] [phone] * (ABNORMAL) PROTIME/INR, VENOUS (11/02/2021 6:37 AM CDT) PROTIME 29.7(H) 10.2 - 12.9 SEC 11/02/2021 7:27 AM CDT [facility] INR 2.6 11/02/2021 7:27 AM CDT [facility] Comment: Recommended INR Therapeutic Goals: ??2.0-3.0 Routine Therapy ??2.5-3.5 Mechanical Prosthetic Valves (High Risk) 11/02/2021 6:37 AM CDT Gunner Vargas MD LABORATORY Final Result Performing Organization Address [facility] de Phone Number [facility] [address] [place] [address], [place] [phone] * POCT glucose (11/02/2021 5:22 AM CDT) GLUCOSE POC 74 70 - 99 mg/dL 11/02/2021 6:01 AM CDT [facility] 11/02/2021 5:22 AM CDT Jayy Jo MD POCT ORDERABLES - DEVICE Final R esult Performing Organization Address [facility] de Phone Number [facility] [address] [place] [address], [place] [phone] * (ABNORMAL) POCT glucose (11/01/2021 7:59 PM CDT) GLUCOSE POC 175(H) 70 - 99 mg/dL 11/01/2021 8:39 PM CDT [facility] 11/01/2021 7:59 PM CDT Herlinda Ayala DO POCT ORDERABLES - DEVICE Final Result Performing Organization Address City/[facility] Co de Phone Number [facility] [address] [place] [address], * (ABNORMAL) POCT glucose (11/01/2021 3:25 PM CDT) GLUCOSE POC 199(H) 70 - 99 mg/dL 11/01/2021 3:51 PM CDT [facility] 11/01/2021 3:25 PM CDT Herlinda Ayala DO POCT ORDERABLES - DEVICE Final Result Performing Organization Address [facility] Co de Phone Number [facility] [address] [place] [address], * (ABNORMAL) POCT glucose (11/01/2021 11:30 AM CDT) GLUCOSE POC 177(H) 70 - 99 mg/dL 11/01/2021 11:45 AM CDT [facility] 11/01/2021 11:3 0 AM CDT us Herlinda Ayala DO POCT ORDERABLES - DEVICE Final Result Performing Organization Address City/[facility] Co de Phone Number [facility] [address] [place] [address], [place] [phone] * XR CHEST PA+LAT (11/01/2021 8:15 AM CDT) Anatomical Region Laterality Modality Chest Radiographic Jennifer ging 11/01/2021 8:18 AM CDT Impressions 11/01/2021 8:20 AM CDT IMPRESSION:===== Small bilateral pleural effusions with associated atelectasis. ??Pulmonary venous congestion, possibly mild edema. ??Overall, stable. Referred By: ?? Interpreted By: Jarvis Munoz MD, 11/01/2021 8:18 AM Narrative 11/01/2021 8:20 AM CDT EXAMINATION: PA AND LATERAL CHEST Exam date/time: 11/01/2021 8:15 AM Reason For Exam: ??Shortness of breath and congestive heart failure ?? Comparison: 10/22/2021 Technique: 2 views. Findings: ??Cardiomegaly. ??Small bilateral pleural effusions with associated atelectasis. ??Pulmonary venous congestion, possibly mild edema. ??Overall, stable. No pneumothorax. ===== Procedure Note Jarvis Munoz MD - 11/01/2021 EXAMINATION: PA AND LATERAL CHEST Exam date/time: 11/01/2021 8:15 AM Reason For Exam: Shortness of breath and congestive heart failure Comparison: 10/22/2021 Technique: 2 views. Findings: Cardiomegaly. Small bilateral pleural effusions withassociated atelectasis. Pulmonary venous congestion, possibly mild edema.Overall, stable. No pneumothorax. ===== IMPRESSION:===== Small bilateral pleural effusions with associated atelectasis. Pulmonaryvenous congestion, possibly mild edema. Overall, stable. Referred By: Interpreted By: Jarvis Munoz MD, 11/01/2021 8:18 AM Tere Cedillo MD GENERAL IMAGING Final Result * (ABNORMAL) COMPREHENSIVE METABOLIC PANEL (11/01/2021 7:28 AM CDT) GLUCOSE 94 70 - 99 MG/DL 11/01/2021 8:46 AM CDT [facility] BUN 16 7 - 18 MG/DL 11/01/2021 8:46 AM CDT [facility] CREATININE S/P/B 1.02 0.55 - 1.02 MG/DL 11/01/2021 8:46 AM CDT [facility] SODIUM S/P/B 143 136 - 145 MMOL/L 11/01/2021 8:46 AM T [facility] POTASSIUM S/P/B 4.8 3.5 - 5.1 MMOL/L 11/01/2021 8:46 AM CDT [facility] CHLORIDE S/P/B 115(H) 100 - 108 MMOL/L 11/01/2021 8:46 AM CDT [facility] CO2 26.4 21 - 32 MMOL/L 11/01/2021 8:46 AM CDT [facility] CALCIUM S/P/B 9.8 8.5 - 10.1 MG/DL 11/01/2021 8:46 AM T [facility] BILIRUBIN TOTAL S/P/B 0.4 0.2 - 1.2 MG/DL 11/01/2021 8:46 AM T [facility] Comment: THIS ASSAY IS NOT RECOMMENDED FOR PATIENTS UNDERGOING TREATMENT WITH ELTROMBOPAG DUE TO THE POTENTIAL FOR FALSELY ELEVATED RESULTS. TOTAL PROTEIN S/P/B 5.5(L) 6.4 - 8.2 G/DL 11/01/2021 8:46 AM T [facility] ALBUMIN S/P/B 2.4(L) 3.4 - 5.0 G/DL 11/01/2021 8:46 AM CDT [facility] AST 23 15 - 37 U/L 11/01/2021 8:46 AM CDT [facility] ALT 24 14 - 55 U/L 11/01/2021 8:46 AM CDT [facility] ALKALINE PHOSPHATASE S/P/B 79 50 - 136 U/L 11/01/2021 8:46 AM CDT [facility] ANION GAP 1.6(L) 5 - 15 MMOL/L 11/01/2021 8:46 AM CDT [facility] BUN CREATININE RATIO 15.7 6 - 26 11/01/2021 8:46 AM CDT [facility] A/G RATIO 0.8(L) 1.0 - 2.0 RATIO 11/01/2021 8:46 AM CDT [facility] GFR ESTIMATE 57(L) >90 ML/MIN/1.7 3 M2 11/01/2021 8:46 AM CDT [facility] Comment: NOTE: eGFR is not calculated for patients <18 years of age. This is an estimated GFR calculation using the new CKD EPI creatinine equation without race and so does not require a correction factor for race. This estimated GFR should not be used for calculating drug doses. 11/01/2021 7:28 AM CDT us Ashu Taz Deng MD LABORATORY Final Result [facility] [address] [place] [address], * (ABNORMAL) CBC W/DIFF AUTOMATED (11/01/2021 7:28 AM CDT) WBC 4.4(L) 4.5 - 11.0 x10'3/uL 11/01/2021 8:15 AM CDT [facility] RBC 2.50(L) 4.20 - 5.40 x10'6/uL 11/01/2021 8:15 AM CDT [facility] HGB 7.9(L) 12.0 - 16.0 G/DL 11/01/2021 8:15 AM CDT [facility] HCT 26.1(L) 38.0 - 48.0 % 11/01/2021 8:15 AM CDT [facility] MCV 104.4(H) 81.0 - 99.0 FL 11/01/2021 8:15 AM CDT [facility] MCH 31.6(H) 27.0 - 31.0 PG 11/01/2021 8:15 AM CDT [facility] MCHC 30.3(L) 32.0 - 36.0 G/DL 11/01/2021 8:15 AM CDT [facility] RDW 12.2 11.5 - 14.5 % 11/01/2021 8:15 AM CDT [facility] PLT 185 130 - 400 x10'3/uL 11/01/2021 8:15 AM CDT [facility] MPV 13.3(H) 9.3 - 12.2 FL 11/01/2021 8:15 AM CDT [facility] DIFFERENTIAL TYPE AUTOMATED DIFFERENTIAL 11/01/2021 8:15 AM CDT [facility] NEUTROPHILS % 54.4 % 11/01/2021 8:15 AM CDT [facility] LYMPHOCYTES % 22.3 % 11/01/2021 8:15 AM CDT [facility] MONOCYTES % 17.3 % 11/01/2021 8:15 AM CDT [facility] EOSINOPHILS 4.7 % 11/01/2021 8:15 AM CDT [facility] BASOPHILS 1.1 % 11/01/2021 8:15 AM CDT [facility] IMMATURE GRANS % 0.2 % 11/02/19 8:15 AM CDT [facility] ABS. NEUTROPHILS TOTAL 2.41 1.80 - 7.70 x10'3/uL 11/01/2021 8:15 AM CDT [facility] ABS. LYMPHOCYTES 0.99(L) 1.00 - 4.80 x10'3/uL 11/01/2021 8:15 AM CDT [facility] ABS. MONOCYTES 0.77 0.24 - 0.86 x10'3/uL 11/01/2021 8:15 AM CDT [facility] ABS. EOSINOPHILS 0.21 0.04 - 0.36 x10'3/uL 11/01/2021 8:15 AM CDT [facility] ABS. BASOPHILS 0.05 0.01 - 0.08 x10'3/uL 11/01/2021 8:15 AM CDT [facility] ABS. IMMATURE GRANULOCYTES 0.01 0.00 - 0.49 x10'3/uL 11/01/2021 8:15 AM CDT [facility] 11/01/2021 7:28 AM CDT Ashu Deng MD LABORATORY Final Result Performing Organization Address [facility] de Phone Number [facility] [address] [place] [id number], [place] [phone] * (ABNORMAL) PROTIME/INR, VENOUS (11/01/2021 7:28 AM CDT) PROTIME 34.4(H) 10.2 - 12.9 SEC 11/01/2021 8:27 AM CDT [facility] INR 3.0 11/01/2021 8:27 AM CDT [facility] Comment: Recommended INR Therapeutic Goals: ??2.0-3.0 Routine Therapy ??2.5-3.5 Mechanical Prosthetic Valves (High Risk) 11/01/2021 7:28 AM CDT Gunner Vargas MD LABORATORY Final Result Performing Organization Address [facility]/State/ZIP Co de Phone Number [facility] [address] [place] [address], [place] [phone] * (ABNORMAL) PRO-BRAIN NATRIURETIC PEPTIDE (11/01/2021 7:28 AM CDT) PRO-B TYPE NATRIURETIC PEPTIDE 14,562(H) <450 PG/ML 11/01/2021 8:46 AM CDT [facility] Comment: CUT POINTS ESTABLISHED BY [employer] ON NT PROBNP (ICON) STUDY (2006). AGE INDEPENDENT: <300 PG/ML HAS A 99% NEGATIVE PREDICTIVE VALUE FOR EXCLUDING ACUTE CHF <50 YEARS: >450 PG/ML IS CONSISTENT WITH ACUTE CHF 50-75 YEARS: >900 PG/ML IS CONSISTENT WITH ACUTE CHF >75 YEARS: >1800 PG/ML IS CONSISTENT WITH ACUTE CHF IN PATIENTS WITH RENAL INSUFFICIENCY (GFR <60), >1200 PG/ML YIELDS A DIAGNOSTIC SENSITIVITY AND SPECIFICITY OF 89% AND 72% FOR ACUTE CHF. 11/01/2021 7:28 AM CDT Tere Cedillo MD LABORATORY Final Result [facility] [address] [place] [address], [place] [phone] * POCT glucose (11/01/2021 6:52 AM CDT) GLUCOSE POC 74 70 - 99 mg/dL 11/01/2021 6:58 AM CDT [facility] 11/01/2021 6:52 AM CDT Herlinda Ayala DO POCT ORDERABLES - DEVICE Final Result [facility] [address] [place] [address], [place] [phone] * (ABNORMAL) POCT glucose (10/31/2021 9:15 PM CDT) GLUCOSE POC 119(H) 70 - 99 mg/dL 10/31/2021 9:22 PM CDT [facility] 10/31/2021 9:15 PM CDT us Ashu Deng MD POCT ORDERABLES - DEVICE Final R esult Performing Organization Address City/[facility] Co de Phone Number [facility] [address] [place] [address], [place] [phone] * (ABNORMAL) POCT glucose (10/31/2021 5:24 PM CDT) GLUCOSE POC 181(H) 70 - 99 mg/dL 10/31/2021 5:26 PM CDT [facility] 10/31/2021 5:24 PM CDT us Ashu Deng MD POCT ORDERABLES - DEVICE Final R esult Performing Organization Address City/[facility] Co de Phone Number [facility] [address] [place] [address], [place] [phone] * (ABNORMAL) POCT glucose (10/31/2021 4:55 PM CDT) GLUCOSE POC 225(H) 70 - 99 mg/dL 10/31/2021 4:57 PM CDT [facility] 10/31/2021 4:55 PM CDT us Ashu Deng MD POCT ORDERABLES - DEVICE Final R esult [facility] [address] [place] [address], * (ABNORMAL) POCT glucose (10/31/2021 4:44 PM CDT) GLUCOSE POC 434(HH) 70 - 99 mg/dL 10/31/2021 4:57 PM CDT [facility] 10/31/2021 4:44 PM CDT us Ashu Deng MD POCT ORDERABLES - [place] [address], * NM PHARM NUC STRESS TEST 1DAY (10/31/2021 1:39 PM CDT) Anatomical Region Laterality Modality Cardiac Nuclear Medicine 10/31/2021 8:30 AM CDT Narrative 10/31/2021 1:50 PM CDT ? Myocardial Perfusion Imaging ? Pat.Name: ??ANA MARIA BOBO HANNA ?Pat.ID: ?[id number] ? St.Date: ?? 10/31/2021 ? Refer.MD: ??Zoey Ricks [id number] Exam Time: 8:30:00 AM ? Study Type:TOYA NC HT MUSCLE IMAGE SPECT MULTI Height: ?64in ?Weight: ?192lb ? BSA: ? 1.92 m2 ?Age: ??1945,76Y ? Sex: ? FEMALE ?Sonogrphr: Jaja Ruvalcaba, IZAIAH ? Pat. Stat.:Inpatient ? Reason for Study: Chest pain, Evaluation of known CAD, Congestive heart failure, Atrial flutter History / Clinical: Atrial fibrillation, Diabetes, Dyslipidemia, Hypertension, Sleep Apnea Procedures: ??Nuclear Stress Test with Lexiscan Race: ?W ? Surgery: ?? Echocardiogram, Aortic Valve Replacement ++++++++++++++++++++++++++++++++++++ SUMMARY: ++++++++++++++++++++++++++++++++++++ Stress conclusion: 1. ? Clinically negative. 2. ? Electrocardiographically negative stress test for ischemia. 3. ? Scintigraphic images to follow. Perfusion conclusion: 1. ??Good study quality. ??No motion correction was applied to images. No attenuation is noted. ?? 2. ??Normal myocardial perfusion SPECT imaging. ?? 3. ??Abnormal wall motion with an ejection fraction of 51%. ?? 4. ??Stress test with myocardial perfusion imaging shows overall low risk for a cardiac event. ++++++++++++++++++++++++++++++++++++ FINDINGS: ++++++++++++++++++++++++++++++++++++ Protocol: Lexiscan 0.4mg was given as a rapid injection IV over a ?period ??of 10 seconds with the radiopharmaceutical injected ?at ??20 seconds. The images were processed using the standard ?SPECT ??technique. ??A gated study was performed on the stress ?images. Impression: SPECT images demonstrate normal perfusion of normal ?intensity. Heart Size: The left ventricle is normal. LV Wall Motion: The LVEF is calculated to be 51%. Gated SPECT images ?abnormal ??normal wall motion due to Left bundle branch ?block. ??Gated SPECT images reveal global hypokinesis. Transient Ischemic Dilatation: The TID is 1.04. There is no evidence ?of ??Transient Ischemic Dilatation. ++++++++++++++++++++++++++++++++++++ STRESS: ++++++++++++++++++++++++++++++++++++ Baseline Vital Signs: ?Intervention ??Regadenoson ECG ?Atrial Fibrillation, Left bundle branch blockPeak Dose ??0.4 mg HR ? 82 ?Atropine 0 Rest BP ?139/64 ? Stress Test Results: Max. HR ?127 ? Pred. Max. Heart Rate (100%) 143 ?? % Target: ??89 % ? Max BP ? 147/60 ?O2 Sat ? 100 % Max RPP ?48503 ? Symptoms and Complications: Terminated Protocol completed Symptoms ?? Chest pain, Dizziness, Headache, Nausea Complications None Stress ECG Interp Atrial Fibrillation, Left bundle branch block Signed 10/31/2021 01:50 PM Tere Cedillo M.D. Procedure Note Tere Cedillo MD - 10/31/2021 Myocardial Perfusion Imaging Pat.Name: ANA MARIA BOBO Pat.ID: [id number] St.Date: 10/31/2021 Refer.MD: Zoey Ricks [id number] Exam Time: 8:30:00 AM Study Type:[facility] HT MUSCLE IMAGE SPECT MULTI Height: 64in Weight: 192lb BSA: 1.92 m2 Age: 3 1945,76Y Sex: FEMALE Sonogrphr: IZAIAH Irvin Pat. Stat.:Inpatient Reason for Study: Chest pain, Evaluation of known CAD, Congestive heart failure, Atrial flutter History / Clinical: Atrial fibrillation, Diabetes, Dyslipidemia, Hypertension, Sleep Apnea Procedures: Nuclear Stress Test with Lexiscan Race: W Surgery: Echocardiogram, Aortic Valve Replacement ++++++++++++++++++++++++++++++++++++ SUMMARY: ++++++++++++++++++++++++++++++++++++ Stress conclusion: 1. Clinically negative. 2. Electrocardiographically [...] overall low risk for a cardiac event. ++++++++++++++++++++++++++++++++++++ FINDINGS: ++++++++++++++++++++++++++++++++++++ Protocol: Lexiscan 0.4mg was given as a rapid injection IV over a period of 10 seconds with the radiopharmaceutical injected at 20 seconds. The images were processed using the standard SPECT technique. A gated study was performed on the stress images. Impression: SPECT images demonstrate normal perfusion of normal intensity. Heart Size: The left ventricle is normal. LV Wall Motion: The LVEF is calculated to be 51%. Gated SPECT images abnormal normal wall motion due to Left bundle branch block. Gated SPECT images reveal global hypokinesis. Transient Ischemic Dilatation: The TID is 1.04. There is no evidence of Transient Ischemic Dilatation. ++++++++++++++++++++++++++++++++++++ STRESS: ++++++++++++++++++++++++++++++++++++ Baseline Vital Signs: Intervention Regadenoson ECG Atrial Fibrillation, Left bundle branch blockPeak Dose 0.4 mg HR 82 Atropine 0 Rest BP 139/64 Stress Test Results: Max. HR 127 Pred. Max. Heart Rate (100%) 143 % Target: 89 % Max BP 147/60 O2 Sat 100 % Max RPP 11448 Symptoms and Complications: Terminated Protocol completed Symptoms Chest pain, Dizziness, Headache, Nausea Complications None Stress ECG Interp Atrial Fibrillation, Left bundle branch block Signed 10/31/2021 01:50 PM Tere Cedillo M.D. Zoey VALLES NUC MED Final Re sult * (ABNORMAL) POCT glucose (10/31/2021 12:27 PM CDT) GLUCOSE POC 170(H) 70 - 99 mg/dL 10/31/2021 2:[address] [facility] 10/31/2021 12:2 7 PM CDT us Ashu Deng MD POCT ORDERABLES - DEVICE Final R esult Performing Organization Address [facility] Co de Phone Number [facility] [address] [place] [address], [place] [phone] * PATHOLOGY SLIDE CONSULT (10/31/2021 7:14 AM CDT) CBC PATHOLOGIST COMMENT PATHOLOGIST REVIEW ADDED TO REPORT 10/31/2021 4:57 PM CDT [facility] Comment: [id number] INCREASED MCV. CAN BE SECONDARY TO VITAMIN B12 DEFICIENCY, FOLATE DEFICIENCY, ALCOHOL ABUSE, LIVER DISEASE, MYELODYSPLASIA, RETICULOCYTOSIS AND HYPOTHYROIDISM. WBC'S AND PLATELETS UNREMARKABLE. ??AGREE WITH WBC DIFFERENTIAL. REVIEWED BY DELMAR RUVALCABA M.D., PATHOLOGIST. 10/31/2021 7:14 AM CDT us Ashu Deng MD PATHOLOGY/CYTOLOGY ORDERABLES Fi nal Result Performing Organization Address [facility] Co de Phone Number [facility] [address] [place] [address], [place] [phone] * (ABNORMAL) MAGNESIUM (10/31/2021 7:14 AM CDT) MAGNESIUM 1.6(L) 1.8 - 2.4 MG/DL 10/31/2021 8:18 AM CDT [facility] 10/31/2021 7:14 AM CDT us Ashu Deng MD LABORATORY Final Result Performing Organization Address City/[facility] Co de Phone Number [facility] [address] [place] [address], [place] [phone] * (ABNORMAL) COMPREHENSIVE METABOLIC PANEL (10/31/2021 7:14 AM CDT) [facility] GLUCOSE 83 70 - 99 MG/DL 10/31/2021 8:18 AM CDT [facility] BUN 15 7 - 18 MG/DL 10/31/2021 8:18 AM CDT [facility] CREATININE S/P/B 0.99 0.55 - 1.02 MG/DL 10/31/2021 8:18 AM CDT [facility] SODIUM S/P/B 143 136 - 145 MMOL/L 10/31/2021 8:18 AM CDT [facility] POTASSIUM S/P/B 4.9 3.5 - 5.1 MMOL/L 10/31/2021 8:18 AM CDT [facility] CHLORIDE S/P/B 115(H) 100 - 108 MMOL/L 10/31/2021 8:18 AM CDT [facility] CO2 25.9 21 - 32 MMOL/L 10/31/2021 8:18 AM CDT [facility] CALCIUM S/P/B 9.9 8.5 - 10.1 MG/DL 10/31/2021 8:18 AM CDT [facility] BILIRUBIN TOTAL S/P/B 0.3 0.2 - 1.2 MG/DL 10/31/2021 8:18 AM CDT [facility] Comment: THIS ASSAY IS NOT RECOMMENDED FOR PATIENTS UNDERGOING TREATMENT WITH ELTROMBOPAG DUE TO THE POTENTIAL FOR FALSELY ELEVATED RESULTS. TOTAL PROTEIN S/P/B 5.3(L) 6.4 - 8.2 G/DL 10/31/2021 8:18 AM CDT [facility] ALBUMIN S/P/B 2.4(L) 3.4 - 5.0 G/DL 10/31/2021 8:18 AM CDT [facility] AST 21 15 - 37 U/L 10/31/2021 8:18 AM CDT [facility] ALT 23 14 - 55 U/L 10/31/2021 8:18 AM CDT [facility] ALKALINE PHOSPHATASE S/P/B 81 50 - 136 U/L 10/31/2021 8:18 AM CDT [facility] ANION GAP 2.1(L) 5 - 15 MMOL/L 10/31/2021 8:18 AM CDT [facility] BUN CREATININE RATIO 15.1 6 - 26 10/31/2021 8:18 AM CDT [facility] A/G RATIO 0.8(L) 1.0 - 2.0 RATIO 10/31/2021 8:18 AM CDT [facility] GFR ESTIMATE 59(L) >90 ML/MIN/1.7 3 M2 10/31/2021 8:18 AM CDT [facility] Comment: NOTE: eGFR is not calculated for patients <18 years of age. This is an estimated GFR calculation using the new CKD EPI creatinine equation without race and so does not require a correction factor for race. This estimated GFR should not be used for calculating drug doses. 10/31/2021 7:14 AM CDT us Ashu Taz Deng MD LABORATORY Final Result [facility] [address] [place] [address], [place] [phone] * (ABNORMAL) CBC W/DIFF AUTOMATED (10/31/2021 7:14 AM CDT) WBC 5.3 4.5 - 11.0 x10'3/uL 10/31/2021 8:01 AM CDT [facility] RBC 2.45(L) 4.20 - 5.40 x10'6/uL 10/31/2021 8:01 AM CDT [facility] HGB 7.5(L) 12.0 - 16.0 G/DL 10/31/2021 8:01 AM T [facility] HCT 26.0(L) 38.0 - 48.0 % 10/31/2021 8:01 AM CDT [facility] MCV 106.1(H) 81.0 - 99.0 FL 10/31/2021 8:01 AM CDT [facility] MCH 30.6 27.0 - 31.0 PG 10/31/2021 8:01 AM T [facility] MCHC 28.8(L) 32.0 - 36.0 G/DL 10/31/2021 8:01 AM T [facility] RDW 12.3 11.5 - 14.5 % 10/31/2021 8:01 AM CDT [facility] PLT 174 130 - 400 x10'3/uL 10/31/2021 8:01 AM T [facility] MPV 13.1(H) 9.3 - 12.2 FL 10/31/2021 8:01 AM T [facility] DIFFERENTIAL TYPE AUTOMATED DIFFERENTIAL 10/31/2021 8:56 AM CDT [facility] NEUTROPHILS % 61.6 % 10/31/2021 8:56 AM CDT [facility] LYMPHOCYTES % 17.6 % 10/31/2021 8:56 AM T [facility] MONOCYTES % 15.3 % 10/31/2021 8:56 AM CDT [facility] EOSINOPHILS 4.5 % 10/31/2021 8:56 AM CDT [facility] BASOPHILS 0.8 % 10/31/2021 8:56 AM CDT [facility] IMMATURE GRANS % 0.2 % 11/01/19 8:56 AM CDT [facility] ABS. NEUTROPHILS TOTAL 3.25 1.80 - 7.70 x10'3/uL 10/31/2021 8:56 AM CDT [facility] ABS. LYMPHOCYTES 0.93(L) 1.00 - 4.80 x10'3/uL 10/31/2021 8:56 AM CDT [facility] ABS. MONOCYTES 0.81 0.24 - 0.86 x10'3/uL 10/31/2021 8:56 AM CDT [facility] ABS. EOSINOPHILS 0.24 0.04 - 0.36 x10'3/uL 10/31/2021 8:56 AM CDT [facility] ABS. BASOPHILS 0.04 0.01 - 0.08 x10'3/uL 10/31/2021 8:56 AM CDT [facility] ABS. IMMATURE GRANULOCYTES 0.01 0.00 - 0.49 x10'3/uL 10/31/2021 8:56 AM CDT [facility] RBC MORPHOLOGY SLIDE REVIEWED 2021 8:56 AM CDT [facility] MACRO 1+ 10/31/2021 8:56 AM CDT [facility] PLT EST. ADEQUATE 10/31/2021 8:56 AM CDT [facility] PATHOLOGIST COMMENT PATHOLOGIST REVIEW TO FOLLOW. 10/31/2021 8:56 AM T [facility] 10/31/2021 7:14 AM CDT us Ashu Taz Deng MD LABORATORY Final Result [facility] [facility] [address] [place] [address], [place] [phone] * (ABNORMAL) PROTIME/INR, VENOUS (10/31/2021 7:14 AM CDT) PROTIME 35.7(H) 10.2 - 12.9 SEC 10/31/2021 8:12 AM CDT [facility] INR 3.1 10/31/2021 8:12 AM CDT [facility] Comment: Recommended INR Therapeutic Goals: ??2.0-3.0 Routine Therapy ??2.5-3.5 Mechanical Prosthetic Valves (High Risk) 10/31/2021 7:14 AM CDT Gunner Vargas MD LABORATORY Final Result [facility] [address] [place] [address], [place] [phone] * POCT glucose (10/31/2021 6:43 AM CDT) GLUCOSE POC 88 70 - 99 mg/dL 10/31/2021 11:46 AM CDT [facility] 10/31/2021 6:43 AM CDT Ashu Deng MD POCT ORDERABLES - DEVICE Final R esult [facility] [address] [place] [address], [place] [phone] * (ABNORMAL) POCT glucose (10/30/2021 9:37 PM CDT) GLUCOSE POC 112(H) 70 - 99 mg/dL 10/30/2021 9:42 PM CDT [facility] 10/30/2021 9:37 PM CDT Ashu Deng MD POCT ORDERABLES - DEVICE Final R esult Performing Organization Address City/[facility] Co de Phone Number [facility] [address] [place] [address], [place] [phone] * (ABNORMAL) POCT glucose (10/30/2021 3:52 PM CDT) GLUCOSE POC 165(H) 70 - 99 mg/dL 10/30/2021 4:01 PM CDT [facility] 10/30/2021 3:52 PM CDT Ashu Deng MD POCT ORDERABLES - DEVICE Final R esult Performing Organization Address [facility] Co de Phone Number [facility] [address] [place] [address], [place] [phone] * (ABNORMAL) THYROXINE, FREE (FT4) (10/30/2021 11:55 AM CDT) FREE T4 3.42(H) 0.76 - 1.46 NG/DL 10/30/2021 1:30 PM CDT [facility] 10/30/2021 11:5 5 AM CDT Zoey Ricks PRINCIPAL ACCOUNT CLERKDouglasC LABORATORY Final Re sult Performing Organization Address City/[facility] Co de Phone Number [facility] [address] [place] [address], [place] [phone] * TROPONIN, QUANT (10/30/2021 11:55 AM CDT) TROPONIN I HIGH SENSITIVITY 18 <54 ng/L 10/30/2021 12:34 PM CDT [facility] Comment: HIGH DOSES OF BIOTIN, TROPONIN-SPECIFIC AUTOANTIBODIES, AND ANTIBODY THERAPY CONTAINING HAMA MAY INTERFERE WITH THIS TEST RESULT. CORRELATION TO CLINICAL HISTORY AND PRESENTATION RECOMMENDED. 10/30/2021 11:5 5 AM CDT Zoey Ricks PRINCIPAL ACCOUNT CLERK-C LABORATORY Final Re sult Performing Organization Address [facility] Co de Phone Number [facility] [address] [place] [address], * (ABNORMAL) TSH W/REFLEX (10/30/2021 11:55 AM CDT) Pathologist [facility] TSH <0.005(L) 0.358 - 3.74 uIU/ML 10/30/2021 1:07 PM CDT [facility] Comment: HIGH DOSES OF BIOTIN MAY INTERFERE WITH THIS TEST RESULT. CORRELATION TO CLINICAL HISTORY AND PRESENTATION RECOMMENDED. 10/30/2021 11:5 5 AM CDT Zoey Ricks PRINCIPAL ACCOUNT CLERK-C LABORATORY Final Re sult Performing Organization Address [facility] Co de Phone Number [facility] [address] [place] [address], [place] [phone] * (ABNORMAL) POCT glucose (10/30/2021 11:06 AM CDT) Pathologist [facility] GLUCOSE POC 169(H) 70 - 99 mg/dL 10/30/2021 11:43 AM CDT [facility] 10/30/2021 11:0 6 AM CDT us Ashu Deng MD POCT ORDERABLES - DEVICE Final R esult [facility] [address] [place] [address], * ECG 12 lead (10/30/2021 9:36 AM CDT) 10/30/2021 9:[address] [facility] (ALEX) RAD - 10/30/2021 3:57 PM CDT ?[facility] ? [address] [facility] [place] ? Test Date: ?2021-10-30 Pat Name: ? ANA MARIA BOBO ?Department: ?? 40 ? Room: ? [id number] Gender: ? Female ? Credit Report Checker: ?? : ?[id number] ? Requested By: ASHU DENG Order Number: [id number] ? Sweetie WOODARD: ?? Tere Cedillo ? Measurements Intervals ?[place] ? Rate: ? 88 ? P: ? MS: ? 0 ?QRS: ?-26 QRSD: ? 158 ?T: ?116 QT: ? 380 ? QTc: ?462 ? Interpretive Statements ATRIAL FIBRILLATION LEFT BUNDLE BRANCH BLOCK [120+ ms QRS DURATION, 80+ ms Q/S IN V1/V2, 85+ ms R IN I/aVL/V5/V6] Compared to ECG 10/28/2021 18:07:07 Left-axis deviation no longer present Procedure Note Tere Cedillo MD - 10/30/2021 [facility] [address] [facility] Test Date: 2021-10-30 Pat Name: ANA MARIA BOBO Department: 40 Room: [facility] Gender: Female Credit Report Checker: : [id number] Requested By: ASHU DENG Order Number: [id number] Reading MD: Tere Cedillo Measurements Intervals [place] Rate: 88 P: MS: 0 QRS: -26 QRSD: 158 T: 116 QT: 380 QTc: 462 Interpretive Statements ATRIAL FIBRILLATION LEFT BUNDLE BRANCH BLOCK [120+ ms QRS DURATION, 80+ ms Q/S IN V1/V2, 85+ms R IN I/aVL/V5/V6] Compared to ECG 10/28/2021 18:07:07 Left-axis deviation no longer present us Ashu Deng MD ECG ORDERABLES Final Result Performing Organization Address [facility] Co de Phone Number [facility] ([facility] * (ABNORMAL) PROTIME/INR, VENOUS (10/30/2021 6:59 AM CDT) PROTIME 40.3(H) 10.2 - 12.9 SEC 10/30/2021 8:11 AM CDT [facility] INR 3.5 10/30/2021 8:11 AM CDT [facility] Comment: Recommended INR Therapeutic Goals: ??2.0-3.0 Routine Therapy ??2.5-3.5 Mechanical Prosthetic Valves (High Risk) 10/30/2021 6:59 AM CDT Gunner Vargas MD LABORATORY Final Result Performing Organization Address [facility] Co de Phone Number [facility] [address] [place] [address], [place] [phone] * (ABNORMAL) COMPREHENSIVE METABOLIC PANEL (10/30/2021 6:59 AM CDT) GLUCOSE 81 70 - 99 MG/DL 10/30/2021 8:00 AM CDT [facility] BUN 16 7 - 18 MG/DL 10/30/2021 8:00 AM CDT [facility] CREATININE S/P/B 1.03(H) 0.55 - 1.02 MG/DL 10/30/2021 8:00 AM CDT [facility] SODIUM S/P/B 142 136 - 145 MMOL/L 10/30/2021 8:00 AM T [facility] POTASSIUM S/P/B 5.0 3.5 - 5.1 MMOL/L 10/30/2021 8:00 AM T [facility] CHLORIDE S/P/B 115(H) 100 - 108 MMOL/L 10/30/2021 8:00 AM CDT [facility] CO2 25.0 21 - 32 MMOL/L 10/30/2021 8:00 AM T [facility] CALCIUM S/P/B 9.8 8.5 - 10.1 MG/DL 10/30/2021 8:00 AM T [facility] BILIRUBIN TOTAL S/P/B 0.4 0.2 - 1.2 MG/DL 10/30/2021 8:00 AM T [facility] Comment: THIS ASSAY IS NOT RECOMMENDED FOR PATIENTS UNDERGOING TREATMENT WITH ELTROMBOPAG DUE TO THE POTENTIAL FOR FALSELY ELEVATED RESULTS. TOTAL PROTEIN S/P/B 5.4(L) 6.4 - 8.2 G/DL 10/30/2021 8:00 AM T [facility] ALBUMIN S/P/B 2.3(L) 3.4 - 5.0 G/DL 10/30/2021 8:00 AM T [facility] AST 25 15 - 37 U/L 10/30/2021 8:00 AM T [facility] ALT 25 14 - 55 U/L 10/30/2021 8:00 AM [facility] ALKALINE PHOSPHATASE S/P/B 82 50 - 136 U/L 10/30/2021 8:00 AM [facility] ANION GAP 2.0(L) 5 - 15 MMOL/L 10/30/2021 8:00 AM CDT [facility] BUN CREATININE RATIO 15.5 6 - 26 10/30/2021 8:00 AM CDT [facility] A/G RATIO 0.7(L) 1.0 - 2.0 RATIO 10/30/2021 8:00 AM CDT [facility] GFR ESTIMATE 56(L) >90 ML/MIN/1.7 3 M2 10/30/2021 8:00 AM CDT [facility] Comment: NOTE: eGFR is not calculated for patients <18 years of age. This is an estimated GFR calculation using the new CKD EPI creatinine equation without race and so does not require a correction factor for race. This estimated GFR should not be used for calculating drug doses. 10/30/2021 6:59 AM CDT us Ashu Taz Deng MD LABORATORY Final Result [facility] [address] [place] [address], [place] [phone] * (ABNORMAL) CBC W/DIFF AUTOMATED (10/30/2021 6:59 AM CDT) WBC 4.4(L) 4.5 - 11.0 x10'3/uL 10/30/2021 7:51 AM CDT [facility] RBC 2.44(L) 4.20 - 5.40 x10'6/uL 10/30/2021 7:51 AM CDT [facility] HGB 7.5(L) 12.0 - 16.0 G/DL 10/30/2021 7:51 AM CDT [facility] HCT 25.8(L) 38.0 - 48.0 % 10/30/2021 7:51 AM CDT [facility] MCV 105.7(H) 81.0 - 99.0 FL 10/30/2021 7:51 AM CDT [facility] MCH 30.7 27.0 - 31.0 PG 10/30/2021 7:51 AM CDT [facility] MCHC 29.1(L) 32.0 - 36.0 G/DL 10/30/2021 7:51 AM CDT [facility] RDW 12.2 11.5 - 14.5 % 10/30/2021 7:51 AM CDT [facility] PLT 171 130 - 400 x10'3/uL 10/30/2021 7:51 AM CDT [facility] MPV 13.1(H) 9.3 - 12.2 FL 10/30/2021 7:51 AM CDT [facility] DIFFERENTIAL TYPE AUTOMATED DIFFERENTIAL 10/30/2021 8:19 AM CDT [facility] NEUTROPHILS % 55.7 % 10/30/2021 8:19 AM CDT [facility] LYMPHOCYTES % 20.2 % 10/30/2021 8:19 AM CDT [facility] MONOCYTES % 17.7 % 10/30/2021 8:19 AM CDT [facility] EOSINOPHILS 4.8 % 10/30/2021 8:19 AM CDT [facility] BASOPHILS 1.1 % 10/30/2021 8:19 AM CDT [facility] IMMATURE GRANS % 0.5 % 10/31/19 8:19 AM CDT [facility] ABS. NEUTROPHILS TOTAL 2.46 1.80 - 7.70 x10'3/uL 10/30/2021 8:19 AM CDT [facility] ABS. LYMPHOCYTES 0.89(L) 1.00 - 4.80 x10'3/uL 10/30/2021 8:19 AM CDT [facility] ABS. MONOCYTES 0.78 0.24 - 0.86 x10'3/uL 10/30/2021 8:19 AM CDT [facility] ABS. EOSINOPHILS 0.21 0.04 - 0.36 x10'3/uL 10/30/2021 8:19 AM CDT [facility] ABS. BASOPHILS 0.05 0.01 - 0.08 x10'3/uL 10/30/2021 8:19 AM CDT [facility] ABS. IMMATURE GRANULOCYTES 0.02 0.00 - 0.49 x10'3/uL 10/30/2021 8:19 AM CDT [facility] RBC MORPHOLOGY SLIDE REVIEWED 2021 8:19 AM CDT [facility] MACRO 1+ 10/30/2021 8:19 AM CDT [facility] PLT EST. ADEQUATE 10/30/2021 8:19 AM CDT [facility] 10/30/2021 6:59 AM CDT us Ashu Deng MD LABORATORY Final Result Performing Organization Address [facility] Co de Phone Number [facility] [address] [place] [address], [place] [phone] * POCT glucose (10/30/2021 5:54 AM CDT) GLUCOSE POC 80 70 - 99 mg/dL 10/30/2021 6:02 AM CDT [facility] 10/30/2021 5:54 AM CDT us Ashu Deng MD POCT ORDERABLES - DEVICE Final R esult Performing Organization Address City/[facility] Co de Phone Number [facility] [address] [place] [address], [place] [phone] * (ABNORMAL) POCT glucose (10/29/2021 7:27 PM CDT) GLUCOSE POC 132(H) 70 - 99 mg/dL 10/29/2021 8:18 PM CDT [facility] 10/29/2021 7:27 PM CDT us Ashu Deng MD POCT ORDERABLES - DEVICE Final R esult Performing Organization Address City/[facility]/ZIP Co de Phone Number [facility] [address] [place] [address], [place] [phone] * (ABNORMAL) POCT glucose (10/29/2021 4:06 PM CDT) GLUCOSE POC 161(H) 70 - 99 mg/dL 10/29/2021 4:14 PM CDT [facility] 10/29/2021 4:06 PM CDT us Ashu Deng MD POCT ORDERABLES - DEVICE Final R esult [facility] [address] [place] [address], [place] [phone] * (ABNORMAL) POCT glucose (10/29/2021 11:54 AM CDT) GLUCOSE POC 182(H) 70 - 99 mg/dL 10/29/2021 11:56 AM CDT [facility] 10/29/2021 11:5 4 AM CDT us Ashu A Ismael MD POCT ORDERABLES - DEVICE Final R esult Performing Organization Address City/[facility]/ZIP Co de Phone Number [facility] [address] [place] [address], [place] [phone] * (ABNORMAL) PROTIME/INR, VENOUS (10/29/2021 7:04 AM CDT) PROTIME 38.0(H) 10.2 - 12.9 SEC 10/29/2021 7:38 AM CDT [facility] INR 3.3 10/29/2021 7:38 AM CDT [facility] Comment: Recommended INR Therapeutic Goals: ??2.0-3.0 Routine Therapy ??2.5-3.5 Mechanical Prosthetic Valves (High Risk) 10/29/2021 7:04 AM CDT Gunner Vargas MD LABORATORY Final Result Performing Organization Address [facility] Co de Phone Number [facility] [address] [place] [address], [place] [phone] * (ABNORMAL) COMPREHENSIVE METABOLIC PANEL (10/29/2021 7:04 AM CDT) GLUCOSE 95 70 - 99 MG/DL 10/29/2021 7:47 AM CDT [facility] BUN 17 7 - 18 MG/DL 10/29/2021 7:47 AM CDT [facility] CREATININE S/P/B 0.93 0.55 - 1.02 MG/DL 10/29/2021 7:47 AM CDT [facility] SODIUM S/P/B 144 136 - 145 MMOL/L 10/29/2021 7:47 AM CDT [facility] POTASSIUM S/P/B 5.2(H) 3.5 - 5.1 MMOL/L 10/29/2021 7:47 AM CDT [facility] CHLORIDE S/P/B 115(H) 100 - 108 MMOL/L 10/29/2021 7:47 AM CDT [facility] CO2 25.8 21 - 32 MMOL/L 10/29/2021 7:47 AM T [facility] CALCIUM S/P/B 10.1 8.5 - 10.1 MG/DL 10/29/2021 7:47 AM CDT [facility] BILIRUBIN TOTAL S/P/B 0.4 0.2 - 1.2 MG/DL 10/29/2021 7:47 AM T [facility] Comment: THIS ASSAY IS NOT RECOMMENDED FOR PATIENTS UNDERGOING TREATMENT WITH ELTROMBOPAG DUE TO THE POTENTIAL FOR FALSELY ELEVATED RESULTS. TOTAL PROTEIN S/P/B 5.8(L) 6.4 - 8.2 G/DL 10/29/2021 7:47 AM T [facility] ALBUMIN S/P/B 2.5(L) 3.4 - 5.0 G/DL 10/29/2021 7:47 AM T [facility] AST 25 15 - 37 U/L 10/29/2021 7:47 AM T [facility] ALT 25 14 - 55 U/L 10/29/2021 7:47 AM T [facility] ALKALINE PHOSPHATASE S/P/B 86 50 - 136 U/L 10/29/2021 7:47 AM T [facility] ANION GAP 3.2(L) 5 - 15 MMOL/L 10/29/2021 7:47 AM T [facility] BUN CREATININE RATIO 18.4 6 - 26 10/29/2021 7:47 AM T [facility] A/G RATIO 0.8(L) 1.0 - 2.0 RATIO 10/29/2021 7:47 AM CDT [facility] GFR ESTIMATE 63(L) >90 ML/MIN/1.7 3 M2 10/29/2021 7:47 AM CDT [facility] Comment: NOTE: eGFR is not calculated for patients <18 years of age. This is an estimated GFR calculation using the new CKD EPI creatinine equation without race and so does not require a correction factor for race. This estimated GFR should not be used for calculating drug doses. 10/29/2021 7:04 AM CDT us Ashu Deng MD LABORATORY Final Result [facility] [address] [place] [address], [place] [phone] * (ABNORMAL) CBC W/DIFF AUTOMATED (10/29/2021 7:04 AM CDT) WBC 4.7 4.5 - 11.0 x10'3/uL 10/29/2021 7:35 AM CDT [facility] RBC 2.63(L) 4.20 - 5.40 x10'6/uL 10/29/2021 7:35 AM CDT [facility] HGB 8.2(L) 12.0 - 16.0 G/DL 10/29/2021 7:35 AM CDT [facility] HCT 28.3(L) 38.0 - 48.0 % 10/29/2021 7:35 AM CDT [facility] MCV 107.6(H) 81.0 - 99.0 FL 10/29/2021 7:35 AM CDT [facility] MCH 31.2(H) 27.0 - 31.0 PG 10/29/2021 7:35 AM CDT [facility] MCHC 29.0(L) 32.0 - 36.0 G/DL 10/29/2021 7:35 AM CDT [facility] RDW 12.4 11.5 - 14.5 % 10/29/2021 7:35 AM CDT [facility] PLT 142 130 - 400 x10'3/uL 10/29/2021 7:35 AM CDT [facility] MPV 13.7(H) 9.3 - 12.2 FL 10/29/2021 7:35 AM CDT [facility] DIFFERENTIAL TYPE AUTOMATED DIFFERENTIAL 10/29/2021 7:54 AM CDT [facility] NEUTROPHILS % 59.1 % 10/29/2021 7:54 AM CDT [facility] LYMPHOCYTES % 17.5 % 10/29/2021 7:54 AM CDT [facility] MONOCYTES % 17.7 % 10/29/2021 7:54 AM CDT [facility] EOSINOPHILS 4.2 % 10/29/2021 7:54 AM CDT [facility] BASOPHILS 1.1 % 10/29/2021 7:54 AM CDT [facility] IMMATURE GRANS % 0.4 % 10/30/19 7:54 AM CDT [facility] ABS. NEUTROPHILS TOTAL 2.80 1.80 - 7.70 x10'3/uL 10/29/2021 7:54 AM CDT [facility] ABS. LYMPHOCYTES 0.83(L) 1.00 - 4.80 x10'3/uL 10/29/2021 7:54 AM CDT [facility] ABS. MONOCYTES 0.84 0.24 - 0.86 x10'3/uL 10/29/2021 7:54 AM CDT [facility] ABS. EOSINOPHILS 0.20 0.04 - 0.36 x10'3/uL 10/29/2021 7:54 AM CDT [facility] ABS. BASOPHILS 0.05 0.01 - 0.08 x10'3/uL 10/29/2021 7:54 AM CDT [facility] ABS. IMMATURE GRANULOCYTES 0.02 0.00 - 0.49 x10'3/uL 10/29/2021 7:54 AM CDT [facility] RBC MORPHOLOGY SLIDE REVIEWED 2021 7:54 AM CDT [facility] MACRO 1+ 10/29/2021 7:54 AM CDT [facility] PLT EST. ADEQUATE 10/29/2021 7:54 AM CDT [facility] 10/29/2021 7:04 AM CDT us Ashu Deng MD LABORATORY Final Result Performing Organization Address City/[facility]/ZIP Co de Phone Number [facility] [address] [place] [address], [place] [phone] * (ABNORMAL) POCT glucose (10/29/2021 5:50 AM CDT) GLUCOSE POC 100(H) 70 - 99 mg/dL 10/29/2021 6:00 AM CDT [facility] 10/29/2021 5:50 AM CDT us Ashu Deng MD POCT ORDERABLES - DEVICE Final R esult Performing Organization Address City/[facility]/ZIP Co de Phone Number [facility] [address] [place] [address], [place] [phone] * (ABNORMAL) MAGNESIUM (10/28/2021 7:22 PM CDT) MAGNESIUM 1.7(L) 1.8 - 2.4 MG/DL 10/28/2021 7:54 PM CDT [facility] 10/28/2021 7:22 PM CDT Ashu Deng MD LABORATORY Final Result [facility] [address] [place] [address], [place] [phone] * (ABNORMAL) COMPREHENSIVE METABOLIC PANEL (10/28/2021 7:22 PM CDT) GLUCOSE 136(H) 70 - 99 MG/DL 10/28/2021 7:54 PM CDT [facility] BUN 19(H) 7 - 18 MG/DL 10/28/2021 7:54 PM CDT [facility] CREATININE S/P/B 1.10(H) 0.55 - 1.02 MG/DL 10/28/2021 7:54 PM CDT [facility] SODIUM S/P/B 141 136 - 145 MMOL/L 10/28/2021 7:54 PM CDT [facility] POTASSIUM S/P/B 5.2(H) 3.5 - 5.1 MMOL/L 10/28/2021 7:54 PM CDT [facility] CHLORIDE S/P/B 113(H) 100 - 108 MMOL/L 10/28/2021 7:54 PM CDT [facility] CO2 26.9 21 - 32 MMOL/L 10/28/2021 7:54 PM CDT [facility] CALCIUM S/P/B 9.6 8.5 - 10.1 MG/DL 10/28/2021 7:54 PM CDT [facility] BILIRUBIN TOTAL S/P/B 0.3 0.2 - 1.2 MG/DL 10/28/2021 7:54 PM [facility] Comment: THIS ASSAY IS NOT RECOMMENDED FOR PATIENTS UNDERGOING TREATMENT WITH ELTROMBOPAG DUE TO THE POTENTIAL FOR FALSELY ELEVATED RESULTS. TOTAL PROTEIN S/P/B 5.6(L) 6.4 - 8.2 G/DL 10/28/2021 7:54 PM T [facility] ALBUMIN S/P/B 2.3(L) 3.4 - 5.0 G/DL 10/28/2021 7:54 PM T [facility] AST 22 15 - 37 U/L 10/28/2021 7:54 PM [facility] ALT 23 14 - 55 U/L 10/28/2021 7:54 PM [facility] ALKALINE PHOSPHATASE S/P/B 86 50 - 136 U/L 10/28/2021 7:54 PM [facility] ANION GAP 1.1(L) 5 - 15 MMOL/L 10/28/2021 7:54 PM [facility] BUN CREATININE RATIO 17.3 6 - 26 10/28/2021 7:54 PM [facility] A/G RATIO 0.7(L) 1.0 - 2.0 RATIO 10/28/2021 7:54 PM [facility] GFR ESTIMATE 52(L) >90 ML/MIN/1.7 3 M2 10/28/2021 7:54 PM [facility] Comment: NOTE: eGFR is not calculated for patients <18 years of age. This is an estimated GFR calculation using the new CKD EPI creatinine equation without race and so does not require a correction factor for race. This estimated GFR should not be used for calculating drug doses. 10/28/2021 7:22 PM CDT us Ashu Deng MD LABORATORY Final Result [facility] [address] [place] [address], * ECG 12 lead (10/28/2021 6:07 PM CDT) 10/28/2021 6:07 PM CDT Narrative [facility] DIONY MONIE (ALEX) RAD - 10/30/2021 7:34 PM CDT ?[facility] ? [address] [facility] [place] ? Test Date: ?2021-10-28 Pat Name: ? ANA MARIA BOBO ?Department: ?? 40 ? Room: ? [id number] Gender: ? Female ? Credit Report Checker: ?? : ?[id number] ? Requested By: ASHU DENG Order Number: [id number] ? Sweetie WOODARD: ?? Tere Cedillo ? Measurements Intervals ?[place] ? Rate: ? 94 ? P: ? MS: ? 0 ?QRS: ?-39 QRSD: ? 159 ?T: ?89 QT: ? 365 ? QTc: ?458 ? Interpretive Statements ATRIAL FIBRILLATION LEFT BUNDLE BRANCH BLOCK [120+ ms QRS DURATION, 80+ ms Q/S IN V1/V2, 85+ ms R IN I/aVL/V5/V6] Compared to ECG 10/22/2021 18:11:32 No significant changes Procedure Note Tere Cedillo MD - 10/30/2021 [facility] [address] Test Date: 2021-10-28 Pat Name: ANA MARIA BOBO Department: 40 Room: [facility] Gender: Female Credit Report Checker: : 1945 Requested By: ASHU DENG Order Number: [id number] Reading MD: Tere Cedillo Measurements Intervals [place] Rate: 94 P: MS: 0 QRS: -39 QRSD: 159 T: 89 QT: 365 QTc: 458 Interpretive Statements ATRIAL FIBRILLATION LEFT BUNDLE BRANCH BLOCK [120+ ms QRS DURATION, 80+ ms Q/S IN V1/V2, 85+ms R IN I/aVL/V5/V6] Compared to ECG 10/22/2021 18:11:32 No significant changes us Ashu Deng MD ECG ORDERABLES Final Result Performing Organization Address City/[facility]/ZIP Co de Phone Number [facility] ([facility] RAD * (ABNORMAL) POCT glucose (10/28/2021 3:46 PM CDT) GLUCOSE POC 151(H) 70 - 99 mg/dL 10/28/2021 3:57 PM CDT [facility] 10/28/2021 3:46 PM CDT us Ashu Deng MD POCT ORDERABLES - DEVICE Final R esult Performing Organization Address [facility] Co de Phone Number [facility] [address] [place] [address], [place] [phone] * (ABNORMAL) POCT glucose (10/28/2021 11:56 AM CDT) GLUCOSE POC 110(H) 70 - 99 mg/dL 10/28/2021 12:04 PM CDT [facility] 10/28/2021 11:5 6 AM CDT us Ashu Deng MD POCT ORDERABLES - DEVICE Final R esult Performing Organization Address City/[facility] Co de Phone Number [facility] [address] [place] [address], [place] [phone] * PATHOLOGY SLIDE CONSULT (10/28/2021 8:05 AM CDT) CBC PATHOLOGIST COMMENT PATHOLOGIST REVIEW ADDED TO REPORT 10/28/2021 4:32 PM CDT [facility] Comment: [id number] MILD LEUKOPENIA. MODERATE MACROCYTIC ANEMIA. INCREASED MCV. CAN BE SECONDARY TO VITAMIN B12 DEFICIENCY, FOLATE DEFICIENCY, ALCOHOL ABUSE, LIVER DISEASE, MYELODYSPLASIA, RETICULOCYTOSIS AND HYPOTHYROIDISM. REVIEWED BY KAYLIE LALA M.D., PATHOLOGIST. 10/28/2021 8:05 AM CDT us Ashu A Ismael WOODARD PATHOLOGY/CYTOLOGY ORDERABLES Fi nal Result [facility] [address] [id number], * (ABNORMAL) COMPREHENSIVE METABOLIC PANEL (10/28/2021 8:05 AM CDT) GLUCOSE 90 70 - 99 MG/DL 10/28/2021 9:54 AM CDT [facility] BUN 20(H) 7 - 18 MG/DL 10/28/2021 9:54 AM CDT [facility] CREATININE S/P/B 1.12(H) 0.55 - 1.02 MG/DL 10/28/2021 9:54 AM CDT [facility] SODIUM S/P/B 143 136 - 145 MMOL/L 10/28/2021 9:54 AM CDT [facility] POTASSIUM S/P/B 5.4(H) 3.5 - 5.1 MMOL/L 10/28/2021 9:54 AM CDT [facility] CHLORIDE S/P/B 115(H) 100 - 108 MMOL/L 10/28/2021 9:54 AM CDT [facility] CO2 26.1 21 - 32 MMOL/L 10/28/2021 9:54 AM T [facility] CALCIUM S/P/B 9.6 8.5 - 10.1 MG/DL 10/28/2021 9:54 AM T [facility] BILIRUBIN TOTAL S/P/B 0.3 0.2 - 1.2 MG/DL 10/28/2021 9:54 AM T [facility] Comment: THIS ASSAY IS NOT RECOMMENDED FOR PATIENTS UNDERGOING TREATMENT WITH ELTROMBOPAG DUE TO THE POTENTIAL FOR FALSELY ELEVATED RESULTS. TOTAL PROTEIN S/P/B 5.4(L) 6.4 - 8.2 G/DL 10/28/2021 9:54 AM T [facility] ALBUMIN S/P/B 2.2(L) 3.4 - 5.0 G/DL 10/28/2021 9:54 AM T [facility] AST 25 15 - 37 U/L 10/28/2021 9:54 AM T [facility] ALT 22 14 - 55 U/L 10/28/2021 9:54 AM T [facility] ALKALINE PHOSPHATASE S/P/B 83 50 - 136 U/L 10/28/2021 9:54 AM T [facility] ANION GAP 1.9(L) 5 - 15 MMOL/L 10/28/2021 9:54 AM T [facility] BUN CREATININE RATIO 17.9 6 - 26 10/28/2021 9:54 AM T [facility] A/G RATIO 0.7(L) 1.0 - 2.0 RATIO 10/28/2021 9:54 AM [facility] GFR ESTIMATE 51(L) >90 ML/MIN/1.7 3 M2 10/28/2021 9:54 AM T [facility] Comment: NOTE: eGFR is not calculated for patients <18 years of age. This is an estimated GFR calculation using the new CKD EPI creatinine equation without race and so does not require a correction factor for race. This estimated GFR should not be used for calculating drug doses. 10/28/2021 8:05 AM CDT Ashu Deng MD LABORATORY Final Result [facility] [address] [place] [address], [place] [phone] * (ABNORMAL) CBC W/DIFF AUTOMATED (10/28/2021 8:05 AM CDT) WBC 4.5 4.5 - 11.0 x10'3/uL 10/28/2021 9:40 AM CDT [facility] RBC 2.49(L) 4.20 - 5.40 x10'6/uL 10/28/2021 9:40 AM CDT [facility] HGB 7.6(L) 12.0 - 16.0 G/DL 10/28/2021 9:40 AM CDT [facility] HCT 26.2(L) 38.0 - 48.0 % 10/28/2021 9:40 AM CDT [facility] MCV 105.2(H) 81.0 - 99.0 FL 10/28/2021 9:40 AM CDT [facility] MCH 30.5 27.0 - 31.0 PG 10/28/2021 9:40 AM CDT [facility] MCHC 29.0(L) 32.0 - 36.0 G/DL 10/28/2021 9:40 AM CDT [facility] RDW 12.1 11.5 - 14.5 % 10/28/2021 9:40 AM CDT [facility] PLT 162 130 - 400 x10'3/uL 10/28/2021 9:40 AM CDT [facility] MPV 13.6(H) 9.3 - 12.2 FL 10/28/2021 9:40 AM CDT [facility] DIFFERENTIAL TYPE AUTOMATED DIFFERENTIAL 10/28/2021 9:59 AM CDT [facility] NEUTROPHILS % 60.1 % 10/28/2021 9:59 AM CDT [facility] LYMPHOCYTES % 17.4 % 10/28/2021 9:59 AM CDT [facility] MONOCYTES % 17.2 % 10/28/2021 9:59 AM CDT [facility] EOSINOPHILS 4.2 % 10/28/2021 9:59 AM CDT [facility] BASOPHILS 0.9 % 10/28/2021 9:59 AM CDT [facility] IMMATURE GRANS % 0.2 % 10/29/19 9:59 AM CDT [facility] ABS. NEUTROPHILS TOTAL 2.69 1.80 - 7.70 x10'3/uL 10/28/2021 9:59 AM CDT [facility] ABS. LYMPHOCYTES 0.78(L) 1.00 - 4.80 x10'3/uL 10/28/2021 9:59 AM CDT [facility] ABS. MONOCYTES 0.77 0.24 - 0.86 x10'3/uL 10/28/2021 9:59 AM CDT [facility] ABS. EOSINOPHILS 0.19 0.04 - 0.36 x10'3/uL 10/28/2021 9:59 AM CDT [facility] ABS. BASOPHILS 0.04 0.01 - 0.08 x10'3/uL 10/28/2021 9:59 AM CDT [facility] ABS. IMMATURE GRANULOCYTES 0.01 0.00 - 0.49 x10'3/uL 10/28/2021 9:59 AM CDT [facility] RBC MORPHOLOGY SLIDE REVIEWED 2021 9:59 AM CDT [facility] MACRO 1+ 10/28/2021 9:59 AM CDT [facility] PLT EST. ADEQUATE 10/28/2021 9:59 AM CDT [facility] PATHOLOGIST COMMENT PATHOLOGIST REVIEW TO FOLLOW. 10/28/2021 9:59 AM CDT [facility] 10/28/2021 8:05 AM CDT Ashu Deng MD LABORATORY Final Result Performing Organization Address [facility] Co de Phone Number [facility] [address] [place] [address], [place] [phone] * (ABNORMAL) PROTIME/INR, VENOUS (10/28/2021 8:05 AM CDT) PROTIME 38.7(H) 10.2 - 12.9 SEC 10/28/2021 9:48 AM CDT [facility] INR 3.4 10/28/2021 9:48 AM CDT [facility] Comment: Recommended INR Therapeutic Goals: ??2.0-3.0 Routine Therapy ??2.5-3.5 Mechanical Prosthetic Valves (High Risk) 10/28/2021 8:05 AM CDT us Gunner Vargas MD LABORATORY Final Result Performing Organization Address [facility]/ZIP Co de Phone Number [facility] [address] [place] [address], [place] [phone] * POCT glucose (10/28/2021 5:46 AM CDT) GLUCOSE POC 73 70 - 99 mg/dL 10/28/2021 5:53 AM CDT [facility] 10/28/2021 5:46 AM CDT us Ashuanish Deng MD POCT ORDERABLES - DEVICE Final R esult Performing Organization Address City/[facility]/ZIP Co de Phone Number [facility] [address] [place] [address], [place] [phone] * (ABNORMAL) POCT glucose (10/27/2021 7:53 PM CDT) GLUCOSE POC 211(H) 70 - 99 mg/dL 10/27/2021 9:19 PM CDT [facility] 10/27/2021 7:53 PM CDT us Ashu Deng MD POCT ORDERABLES - DEVICE Final R esult Performing Organization Address City/[facility] Co de Phone Number [facility] [address] [place] [address], [place] [phone] * (ABNORMAL) POCT glucose (10/27/2021 4:16 PM CDT) GLUCOSE POC 157(H) 70 - 99 mg/dL 10/27/2021 4:25 PM CDT [facility] 10/27/2021 4:16 PM CDT us Ashu Deng MD POCT ORDERABLES - DEVICE Final R esult [facility] [address] [place] [address], * (ABNORMAL) POCT glucose (10/27/2021 11:40 AM CDT) GLUCOSE POC 113(H) 70 - 99 mg/dL 10/27/2021 12:26 PM CDT [facility] 10/27/2021 11:4 0 AM CDT Ashu Deng MD POCT ORDERABLES - DEVICE Final R esult [facility] [address] [place] [address], * CT ABD+PEL WO CON (10/27/2021 9:01 AM CDT) Anatomical Region Laterality Modality Abdomen Computed Tomogra phy 10/27/2021 9:20 AM CDT Impressions 10/27/2021 9:29 AM CDT IMPRESSION: ===== 1. ??Length of sigmoid colon in the mid pelvis with diffuse wall thickening and surrounding inflammatory stranding mildly worsened from comparison exam. ??No perforation or abscess formation identified within limits of this noncontrast exam. ??Acute diverticulitis is favored. ??Underlying neoplasm not excluded. ??Follow- up recommended to ensure resolution. 2. ??Focal nodularity in the gallbladder wall is indeterminate but concerning for neoplasm. ??Follow-up nonemergent right upper quadrant ultrasound recommended if not previously obtained elsewhere. 3. ??Small right and tiny left pleural effusions 4. ??Coronary artery calcifications and atherosclerotic aorta 5. ??Low-density blood pool raises suspicion for anemia Referred By: ?? Interpreted By: Quoc Wilkinson MD, 10/27/2021 9:20 AM Narrative 10/27/2021 9:29 AM CDT EXAMINATION: CT Abdomen and Pelvis without contrast EXAM DATE/TIME: 10/27/2021 9:01 AM REASON FOR EXAM: ??Abdominal pain, acute, nonlocalized ?? COMPARISON: 09/17/2021 CT abdomen and pelvis TECHNIQUE: Axial CT images of the abdomen and pelvis are obtained without the use of IV contrast agent. Subsequent coronal and sagittal reformatted sequences are created for evaluation. ??A dose lowering technique was used for this procedure, which may include, but is not limited to, dose reduction technique, automated exposure control, iterative reconstruction, ALARA (As Low As Reasonably Achievable), or Image Gently techniques. FINDINGS: Small right and tiny left pleural effusions. ??Breathing motion artifact in the lung bases. ??No convincing pulmonary nodules or masses. ??Heart size enlarged. ??Coronary artery calcifications. ??No pericardial effusion. ??Low-density blood pool suggestive of anemia. The liver and spleen are normal in size and contour. ??Fatty atrophy of the pancreas. ??Gallbladder and adrenal glands grossly unremarkable on this noncontrast study. ??Small area of calcifications over the anterior right hepatic lobe similar to prior exam. ??This may be an area of old healed trauma or hemorrhage. ??Soft tissue density area of nodularity near the gallbladder fundus. ??This is similar in size to the prior exam. ??No hydronephrosis or obstructive uropathy on either side. ??Abdominal aorta normal in caliber throughout with extensive calcifications. ??Bowel is normal in caliber throughout. ??No evidence of bowel obstruction. ??No free fluid in the pelvis. ??Bladder contours grossly unremarkable. ??Bladder is decompressed. ??Atrophic or postsurgical uterus. ??The appendix is normal. ??Mild scattered diverticular disease. ??Short segment length of sigmoid colon with diffuse wall thickening and minimal surrounding inflammatory stranding. ??This is slightly worsened from prior study. ??No evidence of perforation or abscess formation within limitations of this noncontrast exam. ??This could represent acute diverticulitis. ??Neoplasm is not entirely excluded. ??Multilevel degenerative changes in the thoracolumbar spine with no convincing acute osseous abnormality. ===== Procedure Note Quoc Wilkinson MD - 10/27/2021 EXAMINATION: CT Abdomen and Pelvis without contrast EXAM DATE/TIME: 10/27/2021 9:01 AM REASON FOR EXAM: Abdominal pain, acute, nonlocalized COMPARISON: 09/17/2021 CT abdomen and pelvis TECHNIQUE: Axial CT images of the abdomen and pelvis are obtained withoutthe use of IV contrast agent. Subsequent coronal and sagittal reformattedsequences are created for evaluation. A dose lowering technique was usedfor this procedure, which may include, but is not limited to, dosereduction technique, automated exposure control, iterative reconstruction,ALARA (As Low As Reasonably Achievable), or Image Gently techniques. FINDINGS: Small right and tiny left pleural effusions. Breathing motionartifact in the lung bases. No convincing pulmonary nodules or masses.Heart size enlarged. Coronary artery calcifications. No pericardialeffusion. Low-density blood pool suggestive of anemia. The liver and spleen are normal in size and contour. Fatty atrophy of thepancreas. Gallbladder and adrenal glands grossly unremarkable on thisnoncontrast study. Small area of calcifications over the anterior righthepatic lobe similar to prior exam. This may be an area of old healedtrauma or hemorrhage. Soft tissue density area of nodularity near thegallbladder fundus. This is similar in size to the prior exam. Nohydronephrosis or obstructive uropathy on either side. Abdominal aortanormal in caliber throughout with extensive calcifications. Bowel isnormal in caliber throughout. No evidence of bowel obstruction. No freefluid in the pelvis. Bladder contours grossly unremarkable. Bladder isdecompressed. Atrophic or postsurgical uterus. The appendix is normal.Mild scattered diverticular disease. Short segment length of sigmoidcolon with diffuse wall thickening and minimal surrounding inflammatorystranding. This is slightly worsened from prior study. No evidence of perforation or abscess formation within limitations of thisnoncontrast exam. This could represent acute diverticulitis. Neoplasm isnot entirely excluded. Multilevel degenerative changes in thethoracolumbar spine with no convincing acute osseous abnormality. ===== IMPRESSION: ===== 1. Length of sigmoid colon in the mid pelvis with diffuse wall thickeningand surrounding inflammatory stranding mildly worsened from comparisonexam. No perforation or abscess formation identified within limits ofthis noncontrast exam. Acute diverticulitis is favored. Underlyingneoplasm not excluded. Follow-up recommended to ensure resolution. 2. Focal nodularity in the gallbladder wall is indeterminate butconcerning for neoplasm. Follow-up nonemergent right upper quadrantultrasound recommended if not previously obtained elsewhere. 3. Small right and tiny left pleural effusions 4. Coronary artery calcifications and atherosclerotic aorta 5. Low-density blood pool raises suspicion for anemia Referred By: Interpreted By: Quoc Wilkinson MD, 10/27/2021 9:20 AM Ashu Deng MD CT Final Result * (ABNORMAL) PROTIME/INR, VENOUS (10/27/2021 7:37 AM CDT) PROTIME 49.2(H) 10.2 - 12.9 SEC 10/27/2021 9:36 AM CDT [facility] INR 4.3 10/27/2021 9:36 AM CDT [facility] Comment: Recommended INR Therapeutic Goals: ??2.0-3.0 Routine Therapy ??2.5-3.5 Mechanical Prosthetic Valves (High Risk) 10/27/2021 7:37 AM CDT Gunner Vargas MD LABORATORY Final Result [facility] [address] [place] [address], [place] [phone] * (ABNORMAL) CBC W/DIFF AUTOMATED (10/27/2021 7:37 AM CDT) WBC 5.0 4.5 - 11.0 x10'3/uL 10/27/2021 8:17 AM CDT [facility] RBC 2.60(L) 4.20 - 5.40 x10'6/uL 10/27/2021 8:17 AM CDT [facility] HGB 8.1(L) 12.0 - 16.0 G/DL 10/27/2021 8:17 AM CDT [facility] HCT 27.3(L) 38.0 - 48.0 % 10/27/2021 8:17 AM CDT [facility] MCV 105.0(H) 81.0 - 99.0 FL 10/27/2021 8:17 AM CDT [facility] MCH 31.2(H) 27.0 - 31.0 PG 10/27/2021 8:17 AM CDT [facility] MCHC 29.7(L) 32.0 - 36.0 G/DL 10/27/2021 8:17 AM CDT [facility] RDW 12.2 11.5 - 14.5 % 10/27/2021 8:17 AM CDT [facility] PLT 166 130 - 400 x10'3/uL 10/27/2021 8:17 AM CDT [facility] MPV 13.3(H) 9.3 - 12.2 FL 10/27/2021 8:17 AM CDT [facility] DIFFERENTIAL TYPE AUTOMATED DIFFERENTIAL 10/27/2021 8:17 AM CDT [facility] NEUTROPHILS % 57.8 % 10/27/2021 8:17 AM CDT [facility] LYMPHOCYTES % 20.0 % 10/27/2021 8:17 AM CDT [facility] MONOCYTES % 16.6 % 10/27/2021 8:17 AM CDT [facility] EOSINOPHILS 4.4 % 10/27/2021 8:17 AM CDT [facility] BASOPHILS 1.0 % 10/27/2021 8:17 AM CDT [facility] IMMATURE GRANS % 0.2 % 10/28/19 8:17 AM CDT [facility] ABS. NEUTROPHILS TOTAL 2.89 1.80 - 7.70 x10'3/uL 10/27/2021 8:17 AM CDT [facility] ABS. LYMPHOCYTES 1.00 1.00 - 4.80 x10'3/uL 10/27/2021 8:17 AM CDT [facility] ABS. MONOCYTES 0.83 0.24 - 0.86 x10'3/uL 10/27/2021 8:17 AM CDT [facility] ABS. EOSINOPHILS 0.22 0.04 - 0.36 x10'3/uL 10/27/2021 8:17 AM CDT [facility] ABS. BASOPHILS 0.05 0.01 - 0.08 x10'3/uL 10/27/2021 8:17 AM CDT [facility] ABS. IMMATURE GRANULOCYTES 0.01 0.00 - 0.49 x10'3/uL 10/27/2021 8:17 AM CDT [facility] 10/27/2021 7:37 AM CDT us Ashu Taz Deng MD LABORATORY Final Result [facility] [address] [place] [address], [place] [phone] * (ABNORMAL) COMPREHENSIVE METABOLIC PANEL (10/27/2021 7:37 AM CDT) [facility] GLUCOSE 94 70 - 99 MG/DL 10/27/2021 8:10 AM CDT [facility] BUN 25(H) 7 - 18 MG/DL 10/27/2021 8:10 AM CDT [facility] CREATININE S/P/B 0.97 0.55 - 1.02 MG/DL 10/27/2021 8:10 AM CDT [facility] SODIUM S/P/B 140 136 - 145 MMOL/L 10/27/2021 8:10 AM CDT [facility] POTASSIUM S/P/B 5.1 3.5 - 5.1 MMOL/L 10/27/2021 8:10 AM CDT [facility] CHLORIDE S/P/B 113(H) 100 - 108 MMOL/L 10/27/2021 8:10 AM CDT [facility] CO2 24.6 21 - 32 MMOL/L 10/27/2021 8:10 AM CDT [facility] CALCIUM S/P/B 9.6 8.5 - 10.1 MG/DL 10/27/2021 8:10 AM CDT [facility] BILIRUBIN TOTAL S/P/B 0.3 0.2 - 1.2 MG/DL 10/27/2021 8:10 AM CDT [facility] Comment: THIS ASSAY IS NOT RECOMMENDED FOR PATIENTS UNDERGOING TREATMENT WITH ELTROMBOPAG DUE TO THE POTENTIAL FOR FALSELY ELEVATED RESULTS. TOTAL PROTEIN S/P/B 6.2(L) 6.4 - 8.2 G/DL 10/27/2021 8:10 AM T [facility] ALBUMIN S/P/B 2.5(L) 3.4 - 5.0 G/DL 10/27/2021 8:10 AM CDT [facility] AST 28 15 - 37 U/L 10/27/2021 8:10 AM CDT [facility] ALT 25 14 - 55 U/L 10/27/2021 8:10 AM T [facility] ALKALINE PHOSPHATASE S/P/B 92 50 - 136 U/L 10/27/2021 8:10 AM CDT [facility] ANION GAP 2.4(L) 5 - 15 MMOL/L 10/27/2021 8:10 AM CDT [facility] BUN CREATININE RATIO 25.8 6 - 26 10/27/2021 8:10 AM CDT [facility] A/G RATIO 0.7(L) 1.0 - 2.0 RATIO 10/27/2021 8:10 AM CDT [facility] GFR ESTIMATE 60(L) >90 ML/MIN/1.7 3 M2 10/27/2021 8:10 AM CDT [facility] Comment: NOTE: eGFR is not calculated for patients <18 years of age. This is an estimated GFR calculation using the new CKD EPI creatinine equation without race and so does not require a correction factor for race. This estimated GFR should not be used for calculating drug doses. 10/27/2021 7:37 AM CDT Ashu Deng MD LABORATORY Final Result [facility] [address] [place] [address], [place] [phone] * MAGNESIUM (10/27/2021 7:37 AM CDT) MAGNESIUM 2.1 1.8 - 2.4 MG/DL 10/27/2021 8:10 AM CDT [facility] 10/27/2021 7:37 AM CDT us Ashu Deng MD LABORATORY Final Result [facility] [address] [place] [address], [place] [phone] * POCT glucose (10/27/2021 6:35 AM CDT) GLUCOSE POC 79 70 - 99 mg/dL 10/27/2021 6:41 AM CDT [facility] 10/27/2021 6:35 AM CDT us Ashuanish Deng MD POCT ORDERABLES - DEVICE Final R esult Performing Organization Address City/[facility]/ZIP Co de Phone Number [facility] [address] [place] [address], [place] [phone] * (ABNORMAL) POCT glucose (10/26/2021 7:57 PM CDT) GLUCOSE POC 174(H) 70 - 99 mg/dL 10/26/2021 8:38 PM CDT [facility] 10/26/2021 7:57 PM CDT us Ashuanish Deng MD POCT ORDERABLES - DEVICE Final R esult Performing Organization Address [facility] Co de Phone Number [facility] [address] [place] [address], [place] [phone] * (ABNORMAL) POCT glucose (10/26/2021 3:06 PM CDT) GLUCOSE POC 108(H) 70 - 99 mg/dL 10/26/2021 3:21 PM CDT [facility] 10/26/2021 3:06 PM CDT us Ashu Deng MD POCT ORDERABLES - DEVICE Final R esult Performing Organization Address City/[facility]/ZIP Co de Phone Number [facility] [address] [place] [address], [place] [phone] * (ABNORMAL) POCT glucose (10/26/2021 5:38 AM CDT) GLUCOSE POC 111(H) 70 - 99 mg/dL 10/26/2021 5:43 AM CDT [facility] 10/26/2021 5:38 AM CDT us Ashu Deng MD POCT ORDERABLES - DEVICE Final R esult [facility] [address] [place] [address], [place] [phone] * (ABNORMAL) COMPREHENSIVE METABOLIC PANEL (10/26/2021 4:15 AM CDT) GLUCOSE 87 70 - 99 MG/DL 10/26/2021 4:55 AM CDT [facility] BUN 33(H) 7 - 18 MG/DL 10/26/2021 4:55 AM CDT [facility] CREATININE S/P/B 0.95 0.55 - 1.02 MG/DL 10/26/2021 4:55 AM CDT [facility] SODIUM S/P/B 143 136 - 145 MMOL/L 10/26/2021 4:55 AM CDT [facility] POTASSIUM S/P/B 5.2(H) 3.5 - 5.1 MMOL/L 10/26/2021 4:55 AM CDT [facility] CHLORIDE S/P/B 116(H) 100 - 108 MMOL/L 10/26/2021 4:55 AM CDT [facility] CO2 26.1 21 - 32 MMOL/L 10/26/2021 4:55 AM CDT [facility] CALCIUM S/P/B 9.0 8.5 - 10.1 MG/DL 10/26/2021 4:55 AM CDT [facility] BILIRUBIN TOTAL S/P/B 0.4 0.2 - 1.2 MG/DL 10/26/2021 4:55 AM T [facility] Comment: THIS ASSAY IS NOT RECOMMENDED FOR PATIENTS UNDERGOING TREATMENT WITH ELTROMBOPAG DUE TO THE POTENTIAL FOR FALSELY ELEVATED RESULTS. TOTAL PROTEIN S/P/B 5.4(L) 6.4 - 8.2 G/DL 10/26/2021 4:55 AM CDT [facility] ALBUMIN S/P/B 2.3(L) 3.4 - 5.0 G/DL 10/26/2021 4:55 AM CDT [facility] AST 22 15 - 37 U/L 10/26/2021 4:55 AM T [facility] ALT 18 14 - 55 U/L 10/26/2021 4:55 AM T [facility] ALKALINE PHOSPHATASE S/P/B 83 50 - 136 U/L 10/26/2021 4:55 AM T [facility] ANION GAP 0.9(L) 5 - 15 MMOL/L 10/26/2021 4:55 AM T [facility] BUN CREATININE RATIO 34.7(H) 6 - 26 10/26/2021 4:55 AM [facility] A/G RATIO 0.7(L) 1.0 - 2.0 RATIO 10/26/2021 4:55 AM [facility] GFR ESTIMATE 62(L) >90 ML/MIN/1.7 3 M2 10/26/2021 4:55 AM [facility] Comment: NOTE: eGFR is not calculated for patients <18 years of age. This is an estimated GFR calculation using the new CKD EPI creatinine equation without race and so does not require a correction factor for race. This estimated GFR should not be used for calculating drug doses. 10/26/2021 4:15 AM CDT us Ashu Deng MD LABORATORY Final Result Performing Organization Address [facility] Co de Phone Number [facility] [address] [place] [address], * (ABNORMAL) PROTIME/INR, VENOUS (10/26/2021 4:15 AM CDT) PROTIME 36.4(H) 10.2 - 12.9 SEC 10/26/2021 4:51 AM CDT [facility] INR 3.2 10/26/2021 4:51 AM CDT [facility] Comment: Recommended INR Therapeutic Goals: ??2.0-3.0 Routine Therapy ??2.5-3.5 Mechanical Prosthetic Valves (High Risk) 10/26/2021 4:15 AM CDT Gunner Vargas MD LABORATORY Final Result Performing Organization Address [facility] Co de Phone Number [facility] [address] [place] [address], * MAGNESIUM (10/26/2021 4:15 AM CDT) MAGNESIUM 2.4 1.8 - 2.4 MG/DL 10/26/2021 4:55 AM CDT [facility] 10/26/2021 4:15 AM CDT us Ashu Deng MD LABORATORY Final Result Performing Organization Address City/[facility]/ZIP Co de Phone Number [facility] [address] [place] [address], [place] [phone] * (ABNORMAL) CBC W/DIFF AUTOMATED (10/26/2021 4:15 AM CDT) [facility] WBC 4.4(L) 4.5 - 11.0 x10'3/uL 10/26/2021 4:37 AM CDT [facility] RBC 2.47(L) 4.20 - 5.40 x10'6/uL 10/26/2021 4:37 AM CDT [facility] HGB 7.7(L) 12.0 - 16.0 G/DL 10/26/2021 4:37 AM CDT [facility] HCT 25.8(L) 38.0 - 48.0 % 10/26/2021 4:37 AM CDT [facility] MCV 104.5(H) 81.0 - 99.0 FL 10/26/2021 4:37 AM T [facility] MCH 31.2(H) 27.0 - 31.0 PG 10/26/2021 4:37 AM CDT [facility] MCHC 29.8(L) 32.0 - 36.0 G/DL 10/26/2021 4:37 AM CDT [facility] RDW 12.2 11.5 - 14.5 % 10/26/2021 4:37 AM T [facility] PLT 147 130 - 400 x10'3/uL 10/26/2021 4:37 AM T [facility] MPV 13.4(H) 9.3 - 12.2 FL 10/26/2021 4:37 AM T [facility] DIFFERENTIAL TYPE AUTOMATED DIFFERENTIAL 10/26/2021 4:37 AM T [facility] NEUTROPHILS % 51.5 % 10/26/2021 4:37 AM T [facility] LYMPHOCYTES % 21.4 % 10/26/2021 4:37 AM T [facility] MONOCYTES % 20.8 % 10/26/2021 4:37 AM CDT [facility] EOSINOPHILS 5.4 % 10/26/2021 4:37 AM CDT [facility] BASOPHILS 0.7 % 10/26/2021 4:37 AM CDT [facility] IMMATURE GRANS % 0.2 % 10/27/19 4:37 AM CDT [facility] ABS. NEUTROPHILS TOTAL 2.28 1.80 - 7.70 x10'3/uL 10/26/2021 4:37 AM CDT [facility] ABS. LYMPHOCYTES 0.95(L) 1.00 - 4.80 x10'3/uL 10/26/2021 4:37 AM CDT [facility] ABS. MONOCYTES 0.92(H) 0.24 - 0.86 x10'3/uL 10/26/2021 4:37 AM CDT [facility] ABS. EOSINOPHILS 0.24 0.04 - 0.36 x10'3/uL 10/26/2021 4:37 AM CDT [facility] ABS. BASOPHILS 0.03 0.01 - 0.08 x10'3/uL 10/26/2021 4:37 AM CDT [facility] ABS. IMMATURE GRANULOCYTES 0.01 0.00 - 0.49 x10'3/uL 10/26/2021 4:37 AM CDT [facility] 10/26/2021 4:15 AM CDT Lora Benjamin MD LABORATORY Final Result [facility] [address] [place] [address], [place] [phone] * (ABNORMAL) POCT glucose (10/25/2021 8:45 PM CDT) GLUCOSE POC 138(H) 70 - 99 mg/dL 10/25/2021 8:46 PM CDT [facility] 10/25/2021 8:45 PM CDT us Ashu Deng MD POCT ORDERABLES - DEVICE Final R esult [facility] [address] [place] [address], [place] [phone] * MRI BRAIN WO CON (10/25/2021 8:16 PM CDT) Anatomical Region Laterality Modality Head Magnetic Resonan ce 10/25/2021 10:5 2 PM CDT Impressions 10/25/2021 10:58 PM CDT IMPRESSION: 1. ??No acute intracranial abnormality. 2. ??Moderate global cerebral volume loss and mild to moderate chronic small vessel ischemic change. 3. ??Redemonstrated right MCA bifurcation saccular aneurysm, similar to the prior CT head examination from 10/22/2021. Referred By: ?? Interpreted By: José Almeida MD, 10/25/2021 10:52 PM Narrative 10/25/2021 10:58 PM CDT EXAMINATION: MRI BRAIN WO CON, 10/25/2021 10:53 PM TECHNIQUE: Axial and sagittal T1, axial T2, axial DWI, axial and sagittal T2 FLAIR, as well as axial T2 GRE magnetic resonance images of the brain were obtained without intravenous contrast. HISTORY: Stroke COMPARISON: CTA head 10/22/2021 FINDINGS: There is no restricted diffusion to suggest an acute infarction. ??There is no hemorrhagic focus of susceptibility. ??Scattered subcortical and periventricular white matter foci demonstrating increased signal on T2-weighted FLAIR images that are nonspecific but most commonly seen in setting of chronic small vessel ischemic change. ??Moderate global cerebral volume loss with ex vacuo dilatation of ventricles and cerebral sulci. ??The sellar, callosal, pineal, and craniovertebral junction regions appear within normal limits. There is no extra-axial fluid collection. ??The basal cisterns appear normal. 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 ??The proximal intracranial arterial flow voids otherwise have a normal appearance. ??Prior bilateral ocular lens extractions with prosthetic lens implantation. ??The orbital contents otherwise appear within normal limits. ??The paranasal sinuses and mastoid air cells are well aerated. Procedure Note José Almeida MD - 11/15/2021 EXAMINATION: MRI BRAIN WO CON, 10/25/2021 10:53 PM TECHNIQUE: Axial and sagittal T1, axial T2, axial DWI, axial and sagittalT2 FLAIR, as well as axial T2 GRE magnetic resonance images of the brainwere obtained without intravenous contrast. HISTORY: Stroke COMPARISON: CTA head 10/22/2021 FINDINGS: There is no restricted diffusion to suggest an acute infarction.There is no hemorrhagic focus of susceptibility. Scattered subcorticaland periventricular white matter foci demonstrating increased signal onT2-weighted FLAIR images that are nonspecific but most commonly seen insetting of chronic small vessel ischemic change. Moderate global cerebralvolume loss with ex vacuo dilatation of ventricles and cerebral sulci.The sellar, callosal, pineal, and craniovertebral junction regions appearwithin normal limits. There is no extra-axial fluid collection. The basal cisterns appearnormal. Redemonstrated 4 mm saccular aneurysm along the right MCAbifurcation (best seen on series 8 image 10), better characterized onprior CT head examination from 10/22/2021. The proximal intracranialarterial flow voids otherwise have a normal appearance. Prior bilateralocular lens extractions with prosthetic lens implantation. The orbitalcontents otherwise appear within normal limits. The paranasal sinuses andmastoid air cells are well aerated. IMPRESSION: 1. No acute intracranial abnormality. 2. Moderate global cerebral volume loss and mild to moderate chronicsmall vessel ischemic change. 3. Redemonstrated right MCA bifurcation saccular aneurysm, similar to theprior CT head examination from 10/22/2021. Referred By: Interpreted By: José Almeida MD, 10/25/2021 10:52 PM us Victor M Padilla MD MRI Final Res ult * (ABNORMAL) POCT glucose (10/25/2021 4:18 PM CDT) GLUCOSE POC 166(H) 70 - 99 mg/dL 10/25/2021 4:21 PM CDT [facility] 10/25/2021 4:18 PM CDT Ashu Deng MD POCT ORDERABLES - DEVICE Final R esult Performing Organization Address [facility] Co de Phone Number [facility] [address] [place] [address], [place] [phone] * (ABNORMAL) POCT glucose (10/25/2021 1:19 PM CDT) GLUCOSE POC 177(H) 70 - 99 mg/dL 10/25/2021 2:17 PM CDT [facility] 10/25/2021 1:19 PM CDT Ashu Deng MD POCT ORDERABLES - DEVICE Final R esult Performing Organization Address City/[facility] Co de Phone Number [facility] [address] [place] [address], [place] [phone] * EEG (10/25/2021 10:37 AM CDT) Narrative [facility] - 10/25/2021 10:37 AM CDT Victor M Padilla MD ? 10/25/2021 10:38 AM EEG REPORT Type of EEG study: ??EEG with video Requesting Provider: Dr Deng Date of Study: 10/25/2021 Reason for EEG: ?? Seizures Technical Description and EEG Findings This is a 21-channel EEG recording utilizing the standard international 10-20 electrode placement along with additional electrodes to monitor eye movements; a single ECG channel was also utilized to record ECG. Bipolar and referential montages were utilized for analysis. EEG description: Awake: In the waking state, a continuous generalized medium-amplitude mixed-frequency background was noted; a symmetric posterior dominant rhythm of 6-8 Hz was recorded in the occipital regions bilaterally. The posterior dominant rhythm attenuated with eye opening and enhanced with eye closure. Drowsiness: There was waxing and waning of posterior dominant rhythm with appearance of diffuse synchronous and asynchronous theta-alpha activity during drowsiness. Provocative maneuvers: Photic stimulation: Intermittent photic stimulation produced Provocative maneuvers photic stimulation: symmetrical bi-occipital response ECG: Single ECG channel showed regular cardiac rhythm. Impression/Clinical Correlation This EEG ??recorded in awake and drowsy states shows mild generalized encephalopathy. us Victor M Padilla MD NEUROLOGY ORDERABLES Christen farooq Result [facility] [address] [place] [address], [place] [phone] * CT CHEST WO CON (10/25/2021 8:28 AM CDT) Anatomical Region Laterality Modality Chest Computed Tomogra phy 10/25/2021 8:38 AM CDT Impressions 10/25/2021 8:49 AM CDT IMPRESSION:===== 1. Stable four-chamber cardiomegaly with mild anemia. 2. Trace nondrainable dependent left pleural effusion and even less equivocal trace left pleural fluid. 3. Stable focal left lower lobe anterior basal subsegmental atelectasis and minimal dependent subsegmental atelectasis. 4. Scattered subtle interlobular septal thickening may indicate an element of fluid overload. 5. No other acute or chronic significant airspace or airway finding. 6. Other nonemergent, incidental, stable and potential chronic findings as discussed in the report body above. Ordered By: SULEMAN DUEÑAS Interpreted By: Rangel Dominguez MD, 10/25/2021 8:38 AM Narrative 10/25/2021 8:49 AM CDT EXAMINATION: CT Chest without contrast EXAM DATE/TIME: 10/25/2021 8:24 AM REASON FOR EXAM: 76 female. 'LLL pneumonia vs effusion? Pneumonia, effusion or abscess suspected, xray done' ? COMPARISON: Chest x-ray 10/22/2021; CT chest 10/15/2021 TECHNIQUE: Computed tomography of the chest was obtained without administration of intravenous contrast. A dose lowering technique was used for this procedure, which may include, but is not limited to, dose reduction technique, automated exposure control, the use of iterative reconstruction, and ALARA (As Low As Reasonably Achievable) / Image Gently techniques. FINDINGS: Stable mild/moderate four-chamber cardiomegaly. Slightly decreased attenuation cardiac blood pool suggesting anemia. Sequela of prior cardiac surgery with sternotomy changes. Replaced aortic valve. Coronary artery disease. No pericardial effusion. The moderate thoracic aortic atherosclerosis. Normal diameter. No overt central pulmonary arterial enlargement. No supraclavicular adenopathy. ??Borderline mediastinal precarinal lymph node measures 1 cm in short axis axis. No other potential adenopathy in the chest. Trace nondrainable right pleural fluid; even less equivocal trace left pleural fluid. The slight diaphragmatic eventration. Stable wedge-shaped left lower lobe anterior basal segment suspected subsegmental atelectasis in addition mild dependent subsegmental atelectasis at the lung bases. Few other nonspecific minimal streaky linear densities. Scattered areas of subtle interlobular septal thickening anterior upper lobes and lung bases may represent element of fluid overload. No confluent consolidation, focal pulmonary nodule or mass. Central and distal airways are clear. No thickening or mucous plugging seen. Unenhanced images of the upper abdomen show nonspecific hepatomegaly. Midthoracic vertebral body severe compression deformity. Multilevel degenerative spondylosis and 1 demineralization. No concerning focal lytic or blastic lesion seen. Procedure Note Rangel Dominguez MD - 10/25/2021 EXAMINATION: CT Chest without contrast EXAM DATE/TIME: 10/25/2021 8:24 AM REASON FOR EXAM: 76 female. 'LLL pneumonia vs effusion? Pneumonia,effusion or abscess suspected, xray done' COMPARISON: Chest x-ray 10/22/2021; CT chest 10/15/2021 TECHNIQUE: Computed tomography of the chest was obtained withoutadministration of intravenous contrast. A dose lowering technique was usedfor this procedure, which may include, but is not limited to, dosereduction technique, automated exposure control, the use of iterativereconstruction, and ALARA (As Low As Reasonably Achievable) / Image Gentlytechniques. FINDINGS: Stable mild/moderate four-chamber cardiomegaly. Slightly decreasedattenuation cardiac blood pool suggesting anemia. Sequela of prior cardiacsurgery with sternotomy changes. Replaced aortic valve. Coronary arterydisease. No pericardial effusion. The moderate thoracic aortic atherosclerosis. Normal diameter. No overt central pulmonary arterial enlargement. No supraclavicular adenopathy. Borderline mediastinal precarinal lymphnode measures 1 cm in short axis axis. No other potential adenopathy inthe chest. Trace nondrainable right pleural fluid; even less equivocal trace leftpleural fluid. The slight diaphragmatic eventration. Stable wedge-shaped left lower lobe anterior basal segment suspectedsubsegmental atelectasis in addition mild dependent subsegmentalatelectasis at the lung bases. Few other nonspecific minimal streakylinear densities. Scattered areas of subtle interlobular septal thickening anterior upperlobes and lung bases may represent element of fluid overload. No confluent consolidation, focal pulmonary nodule or mass. Central anddistal airways are clear. No thickening or mucous plugging seen. Unenhanced images of the upper abdomen show nonspecific hepatomegaly. Midthoracic vertebral body severe compression deformity. Multileveldegenerative spondylosis and 1 demineralization. No concerning focal lyticor blastic lesion seen. IMPRESSION:===== 1. Stable four-chamber cardiomegaly with mild anemia. 2. Trace nondrainable dependent left pleural effusion and even lessequivocal trace left pleural fluid. 3. Stable focal left lower lobe anterior basal subsegmental atelectasisand minimal dependent subsegmental atelectasis. 4. Scattered subtle interlobular septal thickening may indicate an elementof fluid overload. 5. No other acute or chronic significant airspace or airway finding. 6. Other nonemergent, incidental, stable and potential chronic findings asdiscussed in the report body above. Ordered By: SULEMAN DUEÑAS Interpreted By: Rangel Dominguez MD, 10/25/2021 8:38 AM Suleman Dueñas MD CT Final Result * (ABNORMAL) POCT glucose (10/25/2021 6:37 AM CDT) Pathologist [facility] GLUCOSE POC 68(L) 70 - 99 mg/dL 10/25/2021 6:45 AM CDT [facility] 10/25/2021 6:37 AM CDT Ashu Deng MD POCT ORDERABLES - DEVICE Final R esult Performing Organization Address City/[facility]/ZIP Co de Phone Number [facility] [address] [place] [address], * FOLIC ACID SERUM (10/25/2021 5:50 AM CDT) [facility] FOLATE 16.4 3.1 - 17.5 NG/ML 10/25/2021 11:24 AM CDT [facility] 10/25/2021 5:50 AM CDT us Ashu Deng MD LABORATORY Final Result [facility] [address] [place] [address], [place] [phone] * VITAMIN B-12 (10/25/2021 5:50 AM CDT) Pathologist [facility] VITAMIN B12 S/P/B 880 254 - 1,320 PG/ML 10/25/2021 11:24 AM CDT [facility] 10/25/2021 5:50 AM CDT us Ashu Deng MD LABORATORY Final Result [facility] [address] [place] [address], [place] [phone] * PATHOLOGY SLIDE CONSULT (10/25/2021 5:50 AM CDT) CBC PATHOLOGIST COMMENT PATHOLOGIST REVIEW ADDED TO REPORT 10/25/2021 2:11 PM CDT [facility] Comment: [id number] SEVERE MACROCYTIC ANEMIA. INCREASED MCV. CAN BE SECONDARY TO VITAMIN B12 DEFICIENCY, FOLATE DEFICIENCY, ALCOHOL ABUSE, LIVER DISEASE, MYELODYSPLASIA, RETICULOCYTOSIS AND HYPOTHYROIDISM. REVIEWED BY SHAKILA NEGRETE M.D., PATHOLOGIST. 10/25/2021 5:50 AM CDT Gunner Vargas MD PATHOLOGY/CYTOLOGY ORDERABLE S Final Result [facility] [address] [place] [address], [place] [phone] * (ABNORMAL) COMPREHENSIVE METABOLIC PANEL (10/25/2021 5:50 AM CDT) GLUCOSE 73 70 - 99 MG/DL 10/25/2021 6:42 AM CDT [facility] BUN 48(H) 7 - 18 MG/DL 10/25/2021 6:42 AM CDT [facility] CREATININE S/P/B 1.26(H) 0.55 - 1.02 MG/DL 10/25/2021 6:42 AM CDT [facility] SODIUM S/P/B 139 136 - 145 MMOL/L 10/25/2021 6:42 AM CDT [facility] POTASSIUM S/P/B 5.0 3.5 - 5.1 MMOL/L 10/25/2021 6:42 AM CDT [facility] CHLORIDE S/P/B 112(H) 100 - 108 MMOL/L 10/25/2021 6:42 AM CDT [facility] CO2 25.8 21 - 32 MMOL/L 10/25/2021 6:42 AM CDT [facility] CALCIUM S/P/B 8.7 8.5 - 10.1 MG/DL 10/25/2021 6:42 AM T [facility] BILIRUBIN TOTAL S/P/B 0.5 0.2 - 1.2 MG/DL 10/25/2021 6:42 AM T [facility] Comment: THIS ASSAY IS NOT RECOMMENDED FOR PATIENTS UNDERGOING TREATMENT WITH ELTROMBOPAG DUE TO THE POTENTIAL FOR FALSELY ELEVATED RESULTS. TOTAL PROTEIN S/P/B 5.4(L) 6.4 - 8.2 G/DL 10/25/2021 6:42 AM T [facility] ALBUMIN S/P/B 2.4(L) 3.4 - 5.0 G/DL 10/25/2021 6:42 AM T [facility] AST 17 15 - 37 U/L 10/25/2021 6:42 AM T [facility] ALT 17 14 - 55 U/L 10/25/2021 6:42 AM T [facility] ALKALINE PHOSPHATASE S/P/B 81 50 - 136 U/L 10/25/2021 6:42 AM T [facility] ANION GAP 1.2(L) 5 - 15 MMOL/L 10/25/2021 6:42 AM T [facility] BUN CREATININE RATIO 38.1(H) 6 - 26 10/25/2021 6:42 AM T [facility] A/G RATIO 0.8(L) 1.0 - 2.0 RATIO 10/25/2021 6:42 AM CDT [facility] GFR ESTIMATE 44(L) >90 ML/MIN/1.7 3 M2 10/25/2021 6:42 AM CDT [facility] Comment: NOTE: eGFR is not calculated for patients <18 years of age. This is an estimated GFR calculation using the new CKD EPI creatinine equation without race and so does not require a correction factor for race. This estimated GFR should not be used for calculating drug doses. 10/25/2021 5:50 AM CDT Ahsu Deng MD LABORATORY Final Result Performing Organization Address [facility] Co de Phone Number [facility] [address] [place] [address], * (ABNORMAL) PROTIME/INR, VENOUS (10/25/2021 5:50 AM CDT) PROTIME 30.5(H) 10.2 - 12.9 SEC 10/25/2021 7:06 AM CDT [facility] INR 2.6 10/25/2021 7:06 AM CDT [facility] Comment: Recommended INR Therapeutic Goals: ??2.0-3.0 Routine Therapy ??2.5-3.5 Mechanical Prosthetic Valves (High Risk) 10/25/2021 5:50 AM CDT Gunner Vargas MD LABORATORY Final Result Performing Organization Address City/[facility]/ZIP Co de Phone Number [facility] [address] [place] [address], [place] [phone] * (ABNORMAL) MAGNESIUM (10/25/2021 5:50 AM CDT) MAGNESIUM 2.6(H) 1.8 - 2.4 MG/DL 10/25/2021 6:42 AM CDT [facility] 10/25/2021 5:50 AM CDT us Ashu Deng MD LABORATORY Final Result Performing Organization Address [facility]/ZIP Co de Phone Number [facility] [address] [place] [address], [place] [phone] * CULTURE RESPIRATORY W/ GRAM STAIN (10/25/2021 5:50 AM CDT) Pathologist [facility] SPEC DESCRIPTION SPUTUM, EXPECTORATED 10/25/2021 5:58 AM CDT [facility] SPECIAL REQUESTS NO SPECIAL REQUEST 10/25/2021 5:58 AM CDT [facility] GRAM STAIN RESULT RARE WHITE BLOOD CELLS SEEN 10/26/2021 8:50 AM CDT [facility] GRAM STAIN RESULT FEW EPITHELIAL CELLS SEEN 10/26/2021 8:50 AM CDT [facility] GRAM STAIN RESULT FEW MIXED BACTERIAL BETTY 10/26/2021 8:50 AM CDT [facility] CULTURE RESULT MODERATE GROWTH OF NORMAL BETTY PRESENT 10/26/2021 8:33 AM CDT [facility] SPUTUM SPECIMEN / Unknown 10/25/2021 5:50 AM CDT 10/25/2021 6:00 AM CDT Suleman Dueñas MD MICROBIOLOGY - GENERAL ORDERAB LES Final Result Performing Organization Address City/[facility]/ZIP Co de Phone Number [facility] [address] [place] [address], [place] [phone] * (ABNORMAL) CBC W/DIFF AUTOMATED (10/25/2021 5:50 AM CDT) [facility] Signature WBC 4.6 4.5 - 11.0 x10'3/uL 10/25/2021 6:23 AM CDT [facility] RBC 2.49(L) 4.20 - 5.40 x10'6/uL 10/25/2021 6:23 AM CDT [facility] HGB 7.9(L) 12.0 - 16.0 G/DL 10/25/2021 6:23 AM CDT [facility] HCT 26.4(L) 38.0 - 48.0 % 10/25/2021 6:23 AM CDT [facility] MCV 106.0(H) 81.0 - 99.0 FL 10/25/2021 6:23 AM CDT [facility] MCH 31.7(H) 27.0 - 31.0 PG 10/25/2021 6:23 AM CDT [facility] MCHC 29.9(L) 32.0 - 36.0 G/DL 10/25/2021 6:23 AM CDT [facility] RDW 12.3 11.5 - 14.5 % 10/25/2021 6:23 AM CDT [facility] PLT 151 130 - 400 x10'3/uL 10/25/2021 6:23 AM CDT [facility] MPV 13.5(H) 9.3 - 12.2 FL 10/25/2021 6:23 AM CDT [facility] DIFFERENTIAL TYPE AUTOMATED DIFFERENTIAL 10/25/2021 6:36 AM CDT [facility] NEUTROPHILS % 50.5 % 10/25/2021 6:36 AM CDT [facility] LYMPHOCYTES % 22.5 % 10/25/2021 6:36 AM CDT [facility] MONOCYTES % 21.9 % 10/25/2021 6:36 AM CDT [facility] EOSINOPHILS 4.2 % 10/25/2021 6:36 AM CDT [facility] BASOPHILS 0.7 % 10/25/2021 6:36 AM CDT [facility] IMMATURE GRANS % 0.2 % 10/26/19 6:36 AM CDT [facility] ABS. NEUTROPHILS TOTAL 2.31 1.80 - 7.70 x10'3/uL 10/25/2021 6:36 AM CDT [facility] ABS. LYMPHOCYTES 1.03 1.00 - 4.80 x10'3/uL 10/25/2021 6:36 AM CDT [facility] ABS. MONOCYTES 1.00(H) 0.24 - 0.86 x10'3/uL 10/25/2021 6:36 AM CDT [facility] ABS. EOSINOPHILS 0.19 0.04 - 0.36 x10'3/uL 10/25/2021 6:36 AM CDT [facility] ABS. BASOPHILS 0.03 0.01 - 0.08 x10'3/uL 10/25/2021 6:36 AM T [facility] ABS. IMMATURE GRANULOCYTES 0.01 0.00 - 0.49 x10'3/uL 10/25/2021 6:36 AM CDT [facility] RBC MORPHOLOGY SLIDE REVIEWED 2021 6:36 AM CDT [facility] MACRO 1+ 10/25/2021 6:36 AM T [facility] PLT EST. ADEQUATE 10/25/2021 6:36 AM T [facility] PATHOLOGIST COMMENT PATHOLOGIST REVIEW TO FOLLOW. 10/25/2021 6:36 AM CDT [facility] 10/25/2021 5:50 AM CDT Lora Benjamin MD LABORATORY Final Result Performing Organization Address City/[facility]/ZIP Co de Phone Number [facility] [address] [place] [address], [place] [phone] * (ABNORMAL) POCT glucose (10/24/2021 8:15 PM CDT) GLUCOSE POC 153(H) 70 - 99 mg/dL 10/24/2021 8:29 PM CDT [facility] 10/24/2021 8:15 PM CDT us Ashu Deng MD POCT ORDERABLES - DEVICE Final R esult Performing Organization Address [facility] Co de Phone Number [facility] [address] [place] [address], [place] [phone] * (ABNORMAL) POCT glucose (10/24/2021 4:59 PM CDT) GLUCOSE POC 166(H) 70 - 99 mg/dL 10/24/2021 5:01 PM CDT [facility] 10/24/2021 4:59 PM CDT us Ashu Deng MD POCT ORDERABLES - DEVICE Final R esult Performing Organization Address City/[facility]/ZIP Co de Phone Number [facility] [address] [place] [address], [place] [phone] * TROPONIN, QUANT (10/24/2021 4:46 PM CDT) TROPONIN I HIGH SENSITIVITY 32 <54 ng/L 10/24/2021 5:25 PM CDT [facility] Comment: HIGH DOSES OF BIOTIN, TROPONIN-SPECIFIC AUTOANTIBODIES, AND ANTIBODY THERAPY CONTAINING HAMA MAY INTERFERE WITH THIS TEST RESULT. CORRELATION TO CLINICAL HISTORY AND PRESENTATION RECOMMENDED. 10/24/2021 4:46 PM CDT Zoey Ricks PRINCIPAL ACCOUNT CLERK-C LABORATORY Final Re sult Performing Organization Address [facility] de Phone Number [facility] [address] [place] [address], [place] [phone] * TROPONIN, QUANT (10/24/2021 1:53 PM CDT) TROPONIN I HIGH SENSITIVITY 35 <54 ng/L 10/24/2021 2:50 PM CDT [facility] Comment: HIGH DOSES OF BIOTIN, TROPONIN-SPECIFIC AUTOANTIBODIES, AND ANTIBODY THERAPY CONTAINING HAMA MAY INTERFERE WITH THIS TEST RESULT. CORRELATION TO CLINICAL HISTORY AND PRESENTATION RECOMMENDED. 10/24/2021 1:53 PM CDT Zoey Ricks PRINCIPAL ACCOUNT CLERK-C LABORATORY Final Re sult Performing Organization Address [facility] de Phone Number [facility] [address] [place] [address], [place] [phone] * (ABNORMAL) POCT glucose (10/24/2021 11:44 AM CDT) GLUCOSE POC 184(H) 70 - 99 mg/dL 10/24/2021 12:04 PM CDT [facility] 10/24/2021 11:4 4 AM CDT Ashu Deng MD POCT ORDERABLES - DEVICE Final R esult Performing Organization Address [facility] Co de Phone Number [facility] [address] [place] [address], [place] [phone] * (ABNORMAL) POCT glucose (10/24/2021 6:47 AM CDT) GLUCOSE POC 119(H) 70 - 99 mg/dL 10/24/2021 11:59 AM CDT [facility] 10/24/2021 6:47 AM CDT us Ashu Deng MD POCT ORDERABLES - DEVICE Final R esult [facility] [address] [place] [address], * (ABNORMAL) ARTERIAL BLOOD GAS (10/24/2021 6:14 AM CDT) TIME TEST WAS PERFORMED: 623 10/24/2021 6:24 AM CDT [facility] SAMPLE TYPE ARTERIAL 10/24/2021 6:24 AM CDT [facility] DRAW SITE RT RADIAL 10/24/2021 6:24 AM CDT [facility] Comment: BIPAP 02/11 RR 14 40% FIO2 MEENU TEST MEENU TEST PERFORMED 10/24/2021 6:24 AM CDT [facility] INSPECTOR ALUMINUM BOAT CODE 529,003 10/24/2021 6:24 AM CDT [facility] FIO2 40.0 % 10/24/2021 6:25 AM CDT [facility] PH ARTERIAL 7.33(L) 7.35 - 7.45 10/24/2021 6:25 AM CDT [facility] PCO2 44.6 35 - 45 MM HG 10/24/2021 6:25 AM CDT [facility] PO2 153(H) 80 - 100 MM HG 10/24/2021 6:25 AM CDT [facility] BICARB ARTERIAL 23.5 21 - 28 MEQ/L 10/24/2021 6:25 AM CDT [facility] TCO2 24.9 MEQ/L 10/24/2021 6:25 AM CDT [facility] BASE DEFICIT 2.5(H) 0 - 2 MEQ/L 10/24/2021 6:25 AM CDT [facility] HEMOGLOBIN BLOOD GAS 10.2(L) 12.0 - 16.0 G/DL 10/24/2021 6:25 AM CDT [facility] % O2 HEMOGLOBIN ARTERIAL 98.3 95 - 100 % 10/24/2021 6:25 AM CDT [facility] CARBON MONOXIDE 1.1 <3.0 % 6:25 AM CDT [facility] METHEMOGLOBIN 0.5 0.4 - 1.5 % 10/24/2021 6:25 AM CDT [facility] O2 CONTENT 14.5(L) 15 - 22 VOL% 10/24/2021 6:25 AM CDT [facility] AADO2 77.8 10/24/2021 6:25 AM CDT [facility] P/F RATIO (TIDAL VOL CALC) 384 10/24/2021 6:25 AM CDT [facility] 10/24/2021 6:14 AM CDT us Sia Castillo MD LABORATORY Final Result [facility] [address] [place] [address], * (ABNORMAL) BASIC METABOLIC PANEL (10/24/2021 3:51 AM CDT) [facility] GLUCOSE 124(H) 70 - 99 MG/DL 10/24/2021 4:37 AM CDT [facility] BUN 60(H) 7 - 18 MG/DL 10/24/2021 4:37 AM T [facility] CREATININE S/P/B 1.89(H) 0.55 - 1.02 MG/DL 10/24/2021 4:37 AM T [facility] SODIUM S/P/B 137 136 - 145 MMOL/L 10/24/2021 4:37 AM T [facility] POTASSIUM S/P/B 5.3(H) 3.5 - 5.1 MMOL/L 10/24/2021 4:37 AM T [facility] CHLORIDE S/P/B 111(H) 100 - 108 MMOL/L 10/24/2021 4:37 AM T [facility] CO2 24.5 21 - 32 MMOL/L 10/24/2021 4:37 AM T [facility] CALCIUM S/P/B 8.7 8.5 - 10.1 MG/DL 10/24/2021 4:37 AM T [facility] ANION GAP 1.5(L) 5 - 15 MMOL/L 10/24/2021 4:37 AM T [facility] BUN CREATININE RATIO 31.7(H) 6 - 26 10/24/2021 4:37 AM T [facility] GFR ESTIMATE 27(L) >90 ML/MIN/1.7 3 M2 10/24/2021 4:37 AM T [facility] Comment: NOTE: eGFR is not calculated for patients <18 years of age. This is an estimated GFR calculation using the new CKD EPI creatinine equation without race and so does not require a correction factor for race. This estimated GFR should not be used for calculating drug doses. 10/24/2021 3:51 AM CDT Lora Benjamin MD LABORATORY Final Result Performing Organization Address [facility] de Phone Number [facility] [address] [place] [address], * (ABNORMAL) PROTIME/INR, VENOUS (10/24/2021 3:51 AM CDT) PROTIME 35.5(H) 10.2 - 12.9 SEC 10/24/2021 4:35 AM CDT [facility] INR 3.1 10/24/2021 4:35 AM CDT [facility] Comment: Recommended INR Therapeutic Goals: ??2.0-3.0 Routine Therapy ??2.5-3.5 Mechanical Prosthetic Valves (High Risk) 10/24/2021 3:51 AM CDT Gunner Vargas MD LABORATORY Final Result Performing Organization Address [facility] Co de Phone Number [facility] [address] [place] [address], * (ABNORMAL) CBC W/DIFF AUTOMATED (10/24/2021 3:51 AM CDT) WBC 6.0 4.5 - 11.0 x10'3/uL 10/24/2021 4:44 AM CDT [facility] RBC 2.58(L) 4.20 - 5.40 x10'6/uL 10/24/2021 4:44 AM CDT [facility] HGB 8.1(L) 12.0 - 16.0 G/DL 10/24/2021 4:44 AM CDT [facility] HCT 26.9(L) 38.0 - 48.0 % 10/24/2021 4:44 AM CDT [facility] MCV 104.3(H) 81.0 - 99.0 FL 10/24/2021 4:44 AM CDT [facility] MCH 31.4(H) 27.0 - 31.0 PG 10/24/2021 4:44 AM CDT [facility] MCHC 30.1(L) 32.0 - 36.0 G/DL 10/24/2021 4:44 AM CDT [facility] RDW 12.3 11.5 - 14.5 % 10/24/2021 4:44 AM CDT [facility] PLT 152 130 - 400 x10'3/uL 10/24/2021 4:44 AM T [facility] MPV 13.9(H) 9.3 - 12.2 FL 10/24/2021 4:44 AM CDT [facility] DIFFERENTIAL TYPE AUTOMATED DIFFERENTIAL 10/24/2021 4:44 AM CDT [facility] NEUTROPHILS % 68.2 % 10/24/2021 4:44 AM CDT [facility] LYMPHOCYTES % 12.0 % 10/24/2021 4:44 AM CDT [facility] MONOCYTES % 17.1 % 10/24/2021 4:44 AM CDT [facility] EOSINOPHILS 1.8 % 10/24/2021 4:44 AM CDT [facility] BASOPHILS 0.7 % 10/24/2021 4:44 AM CDT [facility] IMMATURE GRANS % 0.2 % 10/25/19 4:44 AM CDT [facility] ABS. NEUTROPHILS TOTAL 4.10 1.80 - 7.70 x10'3/uL 10/24/2021 4:44 AM CDT [facility] ABS. LYMPHOCYTES 0.72(L) 1.00 - 4.80 x10'3/uL 10/24/2021 4:44 AM CDT [facility] ABS. MONOCYTES 1.03(H) 0.24 - 0.86 x10'3/uL 10/24/2021 4:44 AM CDT [facility] ABS. EOSINOPHILS 0.11 0.04 - 0.36 x10'3/uL 10/24/2021 4:44 AM CDT [facility] ABS. BASOPHILS 0.04 0.01 - 0.08 x10'3/uL 10/24/2021 4:44 AM CDT [facility] ABS. IMMATURE GRANULOCYTES 0.01 0.00 - 0.49 x10'3/uL 10/24/2021 4:44 AM CDT [facility] 10/24/2021 3:51 AM CDT Lora Benjamin MD LABORATORY Final Result [place] [id number], [place] [phone] * (ABNORMAL) POCT glucose (10/23/2021 8:34 PM CDT) GLUCOSE POC 167(H) 70 - 99 mg/dL 10/23/2021 8:46 PM CDT [facility] 10/23/2021 8:34 PM CDT Lora Benjamin MD POCT ORDERABLES - DEVICE Fin al Result [facility] [address] [place] [address], [place] [phone] * SODIUM, SERUM (10/23/2021 5:54 PM CDT) SODIUM S/P/B 136 136 - 145 MMOL/L 10/23/2021 6:22 PM CDT [facility] 10/23/2021 5:54 PM CDT Gunner Vargas MD LABORATORY Final Result Performing Organization Address City/[facility]/ZIP Co de Phone Number [facility] [address] [place] [address], [place] [phone] * (ABNORMAL) POCT glucose (10/23/2021 4:13 PM CDT) GLUCOSE POC 141(H) 70 - 99 mg/dL 10/23/2021 4:20 PM CDT [facility] 10/23/2021 4:13 PM CDT Lora Benjamin MD POCT ORDERABLES - DEVICE Fin al Result Performing Organization Address City/[facility]/ZIP Co de Phone Number [facility] [address] [place] [address], [place] [phone] * (ABNORMAL) POCT glucose (10/23/2021 11:53 AM CDT) GLUCOSE POC 100(H) 70 - 99 mg/dL 10/23/2021 12:02 PM CDT [facility] 10/23/2021 11:5 3 AM CDT us Lora Benjamin MD POCT ORDERABLES - DEVICE Fin al Result Performing Organization Address City/[facility]/ZIP Co de Phone Number [facility] [address] [place] [address], * (ABNORMAL) URINALYSIS (10/23/2021 6:50 AM CDT) SPECIMEN TYPE URINE STRAIGHT CATH 10/23/2021 7:02 AM CDT [facility] COLOR (U) YELLOW 10/23/2021 7:15 AM CDT [facility] TRANSPARENCY CLEAR 10/23/2021 7:15 AM CDT [facility] SPECIFIC GRAVITY (U) 1.038(H) 1.001 - 1.030 10/23/2021 7:15 AM CDT [facility] U PH 5.0 5.0 - 9.0 10/23/2021 7:15 AM CDT [facility] LEUKOCYTES (U) 25(A) NEGATIVE 10/23/2021 7:15 AM CDT [facility] NITRITES NEGATIVE NEGATIVE 10/23/2021 7:15 AM CDT [facility] PROTEIN (U) NEGATIVE <30 MG/DL 10/23/2021 7:15 AM CDT [facility] URINE GLUCOSE NORMAL NORMAL MG/DL 10/23/2021 7:15 AM CDT [facility] KETONES MG/DL (U) NEGATIVE NEGATIVE MG/DL 10/23/2021 7:15 AM CDT [facility] UROBILINOGEN NORMAL NORMAL MG/DL 10/23/2021 7:15 AM CDT [facility] BILIRUBIN (U) NEGATIVE NEGATIVE MG/DL 10/23/2021 7:15 AM CDT [facility] BLOOD (U) NEGATIVE NEGATIVE 10/23/2021 7:15 AM CDT [facility] WBC/HPF 8(H) <6 /HPF 10/23/2021 7:15 AM CDT [facility] RBC/HPF 3 <6 /HPF 10/23/2021 7:15 AM CDT [facility] SQUAMOUS EPITHELIALS RARE /HPF 10/23/2021 7:15 AM CDT [facility] URINE, STRAIGHT CATH 10/23/2021 6:50 AM CDT us Gunner Vargas MD URINE ORDERABLES Final Resul t [facility] [address] [place] [address], [place] [phone] * POCT glucose (10/23/2021 6:31 AM CDT) GLUCOSE POC 78 70 - 99 mg/dL 10/23/2021 6:40 AM CDT [facility] 10/23/2021 6:31 AM CDT us Lora Benjamin MD POCT ORDERABLES - DEVICE Fin al Result [facility] [address] [place] [address], [place] [phone] * (ABNORMAL) ARTERIAL BLOOD GAS (10/23/2021 5:05 AM CDT) TIME TEST WAS PERFORMED: 521 10/23/2021 5:19 AM CDT [facility] SAMPLE TYPE ARTERIAL 10/23/2021 5:19 AM CDT [facility] DRAW SITE RIGHT BRACHIAL 10/23/2021 5:19 AM CDT [facility] INSPECTOR ALUMINUM BOAT CODE 540,039 10/23/2021 5:19 AM CDT [facility] FIO2 21.0 % 10/23/2021 5:20 AM CDT [facility] PH ARTERIAL 7.28(LL) 7.35 - 7.45 10/23/2021 5:20 AM CDT [facility] Comment: Successful Call: PH called 10/23/2021 05:22 AM to GUNNER ENGLAND MD ( /GUNNER ENGLAND MD) by [id number]. PCO2 48.9(H) 35 - 45 MM HG 10/23/2021 5:20 AM CDT [facility] PO2 144(H) 80 - 100 MM HG 10/23/2021 5:20 AM T [facility] BICARB ARTERIAL 22.9 21 - 28 MEQ/L 10/23/2021 5:20 AM T [facility] TCO2 24.4 MEQ/L 10/23/2021 5:20 AM T [facility] BASE DEFICIT 3.8(H) 0 - 2 MEQ/L 10/23/2021 5:20 AM T [facility] HEMOGLOBIN BLOOD GAS 8.1(L) 12.0 - 16.0 G/DL 10/23/2021 5:20 AM T [facility] % O2 HEMOGLOBIN ARTERIAL 98.1 95 - 100 % 10/23/2021 5:20 AM T [facility] CARBON MONOXIDE 1.1 <3.0 % 5:20 AM T [facility] METHEMOGLOBIN 0.4 0.4 - 1.5 % 10/23/2021 5:20 AM T [facility] O2 CONTENT 11.6(L) 15 - 22 VOL% 10/23/2021 5:20 AM CDT [facility] AADO2 NOT CALCULATED 10/23/2021 5:20 AM CDT [facility] P/F RATIO (TIDAL VOL CALC) 687 10/23/2021 5:20 AM CDT [facility] 10/23/2021 5:05 AM CDT Gunner Vargas MD LABORATORY Final Result Performing Organization Address [facility] de Phone Number [facility] [address] [place] [address], [place] [phone] * (ABNORMAL) PROTIME/INR, VENOUS (10/23/2021 4:20 AM CDT) PROTIME 42.5(H) 10.2 - 12.9 SEC 10/23/2021 4:48 AM CDT [facility] INR 3.7 10/23/2021 4:48 AM CDT [facility] Comment: Recommended INR Therapeutic Goals: ??2.0-3.0 Routine Therapy ??2.5-3.5 Mechanical Prosthetic Valves (High Risk) 10/23/2021 4:20 AM CDT Gunner Vargas MD LABORATORY Final Result Performing Organization Address [facility] Co de Phone Number [facility] [address] [place] [address], [place] [phone] * SODIUM, SERUM (10/23/2021 4:20 AM CDT) SODIUM S/P/B 138 136 - 145 MMOL/L 10/23/2021 4:48 AM CDT [facility] 10/23/2021 4:20 AM CDT Gunner Vargas MD LABORATORY Final Result [facility] [address] [place] [address], [place] [phone] * MAGNESIUM (10/23/2021 4:20 AM CDT) MAGNESIUM 2.3 1.8 - 2.4 MG/DL 10/23/2021 4:52 AM CDT [facility] 10/23/2021 4:20 AM CDT Gunner Vargas MD LABORATORY Final Result Performing Organization Address [facility] Co de Phone Number [facility] [address] [place] [address], [place] [phone] * (ABNORMAL) BASIC METABOLIC PANEL (10/23/2021 4:20 AM CDT) GLUCOSE 77 70 - 99 MG/DL 10/23/2021 4:52 AM CDT [facility] BUN 57(H) 7 - 18 MG/DL 10/23/2021 4:52 AM CDT [facility] CREATININE S/P/B 2.07(H) 0.55 - 1.02 MG/DL 10/23/2021 4:52 AM CDT [facility] SODIUM S/P/B 137 136 - 145 MMOL/L 10/23/2021 4:52 AM CDT [facility] POTASSIUM S/P/B 4.9 3.5 - 5.1 MMOL/L 10/23/2021 4:52 AM CDT [facility] CHLORIDE S/P/B 110(H) 100 - 108 MMOL/L 10/23/2021 4:52 AM CDT [facility] CO2 26.0 21 - 32 MMOL/L 10/23/2021 4:52 AM CDT [facility] CALCIUM S/P/B 8.5 8.5 - 10.1 MG/DL 10/23/2021 4:52 AM CDT [facility] ANION GAP 1.0(L) 5 - 15 MMOL/L 10/23/2021 4:52 AM CDT [facility] BUN CREATININE RATIO 27.5(H) 6 - 26 10/23/2021 4:52 AM CDT [facility] GFR ESTIMATE 24(L) >90 ML/MIN/1.7 3 M2 10/23/2021 4:52 AM CDT [facility] Comment: NOTE: eGFR is not calculated for patients <18 years of age. This is an estimated GFR calculation using the new CKD EPI creatinine equation without race and so does not require a correction factor for race. This estimated GFR should not be used for calculating drug doses. 10/23/2021 4:20 AM CDT Gunner Vargas MD LABORATORY Final Result [facility] [address] [place] [address], [place] [phone] * (ABNORMAL) CBC W/DIFF AUTOMATED (10/23/2021 4:20 AM CDT) WBC 4.3(L) 4.5 - 11.0 x10'3/uL 10/23/2021 5:25 AM CDT [facility] RBC 2.60(L) 4.20 - 5.40 x10'6/uL 10/23/2021 5:25 AM CDT [facility] HGB 8.1(L) 12.0 - 16.0 G/DL 10/23/2021 5:25 AM CDT [facility] HCT 27.3(L) 38.0 - 48.0 % 10/23/2021 5:25 AM CDT [facility] MCV 105.0(H) 81.0 - 99.0 FL 10/23/2021 5:25 AM CDT [facility] MCH 31.2(H) 27.0 - 31.0 PG 10/23/2021 5:25 AM CDT [facility] MCHC 29.7(L) 32.0 - 36.0 G/DL 10/23/2021 5:25 AM CDT [facility] RDW 12.3 11.5 - 14.5 % 10/23/2021 5:25 AM CDT [facility] PLT 155 130 - 400 x10'3/uL 10/23/2021 5:25 AM CDT [facility] MPV 13.3(H) 9.3 - 12.2 FL 10/23/2021 5:25 AM CDT [facility] DIFFERENTIAL TYPE AUTOMATED DIFFERENTIAL 10/23/2021 5:25 AM CDT [facility] NEUTROPHILS % 48.9 % 10/23/2021 5:25 AM CDT [facility] LYMPHOCYTES % 24.3 % 10/23/2021 5:25 AM CDT [facility] MONOCYTES % 21.3 % 10/23/2021 5:25 AM CDT [facility] EOSINOPHILS 4.6 % 10/23/2021 5:25 AM CDT [facility] BASOPHILS 0.7 % 10/23/2021 5:25 AM CDT [facility] IMMATURE GRANS % 0.2 % 10/24/19 5:25 AM CDT [facility] ABS. NEUTROPHILS TOTAL 2.11 1.80 - 7.70 x10'3/uL 10/23/2021 5:25 AM CDT [facility] ABS. LYMPHOCYTES 1.05 1.00 - 4.80 x10'3/uL 10/23/2021 5:25 AM CDT [facility] ABS. MONOCYTES 0.92(H) 0.24 - 0.86 x10'3/uL 10/23/2021 5:25 AM CDT [facility] ABS. EOSINOPHILS 0.20 0.04 - 0.36 x10'3/uL 10/23/2021 5:25 AM CDT [facility] ABS. BASOPHILS 0.03 0.01 - 0.08 x10'3/uL 10/23/2021 5:25 AM CDT [facility] ABS. IMMATURE GRANULOCYTES 0.01 0.00 - 0.49 x10'3/uL 10/23/2021 5:25 AM CDT [facility] 10/23/2021 4:20 AM CDT Gunner Vargas MD LABORATORY Final Result [facility] [address] [place] [address], * (ABNORMAL) PROTIME/INR, VENOUS (10/22/2021 11:50 PM CDT) PROTIME 42.7(H) 10.2 - 12.9 SEC 10/23/2021 12:26 AM CDT [facility] INR 3.7 10/23/2021 12:26 AM CDT [facility] Comment: Recommended INR Therapeutic Goals: ??2.0-3.0 Routine Therapy ??2.5-3.5 Mechanical Prosthetic Valves (High Risk) 10/22/2021 11:5 0 PM CDT us Gunner Vargas MD LABORATORY Final Result Performing Organization Address [facility] Co de Phone Number [facility] [address] [place] [address], [place] [phone] * SODIUM, SERUM (10/22/2021 11:50 PM CDT) SODIUM S/P/B 137 136 - 145 MMOL/L 10/23/2021 12:13 AM CDT [facility] 10/22/2021 11:5 0 PM CDT us Gunner Vargas MD LABORATORY Final Result Performing Organization Address [facility] de Phone Number [facility] [address] [place] [address], [place] [phone] * POCT glucose (10/22/2021 11:00 PM CDT) GLUCOSE POC 89 70 - 99 mg/dL 10/22/2021 11:03 PM CDT [facility] 10/22/2021 11:0 0 PM CDT us Gunner Vargas MD POCT ORDERABLES - DEVICE Fin al Result Performing Organization Address [facility] de Phone Number [facility] [address] [place] [address], [place] [phone] * (ABNORMAL) BLOOD GAS, ARTERIAL, W/LYTES GLU LAC (10/22/2021 9:08 PM CDT) TIME TEST WAS PERFORMED: 211010/22/2021 9:11 PM CDT [facility] SAMPLE TYPE ARTERIAL 10/22/2021 9:11 PM T [facility] DRAW SITE RT RADIAL 10/22/2021 9:11 PM T [facility] MEENU TEST MEENU TEST PERFORMED 10/22/2021 9:11 PM CDT [facility] INSPECTOR ALUMINUM BOAT CODE 541,251 10/22/2021 9:11 PM CDT [facility] FIO2 40.0 % 10/22/2021 9:11 PM CDT [facility] PH ARTERIAL 7.29(LL) 7.35 - 7.45 10/22/2021 9:11 PM T [facility] Comment: Successful Call: PH called 10/22/2021 09:11 PM to GUNNER ENGLAND MD ( /GUNNER ENGLAND MD) by [id number]. PCO2 49.2(H) 35 - 45 MM HG 10/22/2021 9:11 PM T [facility] PO2 142(H) 80 - 100 MM HG 10/22/2021 9:11 PM T [facility] BICARB ARTERIAL 23.8 21 - 28 MEQ/L 10/22/2021 9:11 PM T [facility] TCO2 25.3 MEQ/L 10/22/2021 9:11 PM T [facility] BASE DEFICIT 2.8(H) 0 - 2 MEQ/L 10/22/2021 9:11 PM T [facility] HEMOGLOBIN BLOOD GAS 8.3(L) 12.0 - 16.0 G/DL 10/22/2021 9:11 PM T [facility] % O2 HEMOGLOBIN ARTERIAL 97.9 95 - 100 % 10/22/2021 9:11 PM T [facility] CARBON MONOXIDE 1.3 <3.0 % 9:11 PM CDT [facility] METHEMOGLOBIN 0.1(L) 0.4 - 1.5 % 10/22/2021 9:11 PM CDT [facility] O2 CONTENT 11.8(L) 15 - 22 VOL% 10/22/2021 9:11 PM CDT [facility] SODIUM BLOOD GAS 137 135.0 - 145.0 MMOL/L 10/22/2021 9:11 PM CDT [facility] POTASSIUM BLOOD GAS 4.8 3.5 - 5.0 MMOL/L 10/22/2021 9:11 PM CDT [facility] CALCIUM BLOOD GAS 1.27 1.05 - 1.3 MMOL/L 10/22/2021 9:11 PM CDT [facility] GLUCOSE POC 76 74 - 106 MG/DL 10/22/2021 9:11 PM CDT [facility] LACTIC ACID VENOUS <0.4 0.0 - 2.2 MMOL/L 10/22/2021 9:11 PM CDT [facility] AADO2 84.1 10/22/2021 9:11 PM CDT [facility] P/F RATIO (TIDAL VOL CALC) 355 10/22/2021 9:11 PM CDT [facility] 10/22/2021 9:08 PM CDT us Gunner Vargas MD LABORATORY Final Result [facility] [address] [place] [address], [place] [phone] * (ABNORMAL) ARTERIAL BLOOD GAS (10/22/2021 8:08 PM CDT) TIME TEST WAS PERFORMED: 201210/22/2021 8:11 PM CDT [facility] SAMPLE TYPE ARTERIAL 10/22/2021 8:11 PM CDT [facility] DRAW SITE RT RADIAL 10/22/2021 8:11 PM CDT [facility] MEENU TEST MEENU TEST PERFORMED 10/22/2021 8:11 PM CDT [facility] INSPECTOR ALUMINUM BOAT CODE 541,251 10/22/2021 8:11 PM CDT [facility] FIO2 32.0 % 10/22/2021 8:11 PM CDT [facility] PH ARTERIAL 7.28(LL) 7.35 - 7.45 10/22/2021 8:11 PM CDT [facility] Comment: Successful Call: PH called 10/22/2021 08:12 PM to SWATHI CASTELLON MD ( /SWATHI CASTELLON MD) by [id number]. PCO2 50.3(H) 35 - 45 MM HG 10/22/2021 8:11 PM CDT [facility] PO2 120(H) 80 - 100 MM HG 10/22/2021 8:11 PM CDT [facility] BICARB ARTERIAL 23.3 21 - 28 MEQ/L 10/22/2021 8:11 PM CDT [facility] TCO2 24.9 MEQ/L 10/22/2021 8:11 PM CDT [facility] BASE DEFICIT 3.4(H) 0 - 2 MEQ/L 10/22/2021 8:11 PM T [facility] HEMOGLOBIN BLOOD GAS 8.2(L) 12.0 - 16.0 G/DL 10/22/2021 8:11 PM CDT [facility] % O2 HEMOGLOBIN ARTERIAL 97.8 95 - 100 % 10/22/2021 8:11 PM CDT [facility] CARBON MONOXIDE 2.0 <3.0 % 8:11 PM CDT [facility] METHEMOGLOBIN 0(L) 0.4 - 1.5 % 10/23/2021 8:14 AM CDT [facility] O2 CONTENT 11.5(L) 15 - 22 VOL% 10/22/2021 8:11 PM CDT [facility] AADO2 47.9 10/22/2021 8:11 PM CDT [facility] P/F RATIO (TIDAL VOL CALC) 376 10/22/2021 8:11 PM CDT [facility] 10/22/2021 8:08 PM CDT Swathi Castellon MD LABORATORY Final Result [facility] [address] [place] [address], [place] [phone] * XR CHEST PORTABLE (10/22/2021 6:19 PM CDT) Anatomical Region Laterality Modality Chest Radiographic Jennifer ging 10/22/2021 6:20 PM CDT Impressions 10/22/2021 6:23 PM CDT IMPRESSION: 1. ??Enlarged heart. 2. ??Artifact versus some mild increased density in the left lung base. Referred By: ?? Interpreted By: Neel Basurto MD, 10/22/2021 6:20 PM Narrative 10/22/2021 6:23 PM CDT Exam: Chest x-ray Comparison 10/19/2021 INDICATION: Recent hospital discharge for pneumonia. ??Dyspnea. TECHNIQUE: One view FINDINGS: The heart is enlarged. ??Median sternotomy and valve replacement. ??Central pulmonary vessels are partially obscured but are within normal limits for size. ??The right lung is clear. ??Indistinctness of the left lung base and hemidiaphragm. ??Uncertain significance with portable technique and superimposed soft tissues. ??There could be a component of lung opacification or small pleural effusion present. ??No substantial change from the prior exam allowing for differences in patient positioning. ??The remainder of the left lung is clear. Procedure Note Neel Basurto MD - 10/22/2021 Exam: Chest x-ray Comparison 10/19/2021 INDICATION: Recent hospital discharge for pneumonia. Dyspnea. TECHNIQUE: One view FINDINGS: The heart is enlarged. Median sternotomy and valve replacement.Central pulmonary vessels are partially obscured but are within normallimits for size. The right lung is clear. Indistinctness of the leftlung base and hemidiaphragm. Uncertain significance with portabletechnique and superimposed soft tissues. There could be a component oflung opacification or small pleural effusion present. No substantialchange from the prior exam allowing for differences in patientpositioning. The remainder of the left lung is clear. IMPRESSION: 1. Enlarged heart. 2. Artifact versus some mild increased density in the left lung base. Referred By: Interpreted By: Neel Basurto MD, 10/22/2021 6:20 PM [facility] Final Resul t * PATHOLOGY SLIDE CONSULT (10/22/2021 6:17 PM CDT) CBC PATHOLOGIST COMMENT PATHOLOGIST REVIEW ADDED TO REPORT 10/23/2021 2:25 PM CDT [facility] Comment: [id number] MILD LEUKOPENIA. MODERATE MACROCYTIC ANEMIA. SOME HYPOCHROMIC RBC'S SUGGESTIVE OF IRON DEFICIENCY. ??SUGGEST IRON STUDIES. REVIEWED BY KAYLIE LALA M.D., PATHOLOGIST. 10/22/2021 6:17 PM CDT [facility] PATHOLOGY/CYTOLOGY ORDERABL ES Final Result [facility] [address] [place] [address], [place] [phone] * LACTIC ACID (10/22/2021 6:17 PM CDT) Pathologist [facility] LACTIC ACID VENOUS 0.8 0.4 - 2.0 MMOL/L 10/22/2021 7:05 PM CDT [facility] 10/22/2021 6:17 PM CDT Gunner Vargas MD LABORATORY Final Result [facility] [address] [place] [id number], [place] [phone] * CULTURE, BACTERIA, BLOOD (10/22/2021 6:17 PM CDT) [facility] SPEC DESCRIPTION BLOOD 10/22/2021 5:56 PM CDT [facility] SPECIAL REQUESTS NO SPECIAL REQUEST 10/22/2021 5:56 PM CDT [facility] CULTURE RESULT NO GROWTH 5 DAYS 10/27/2021 2:17 PM CDT [facility] BLOOD SPECIMEN OBTAINED FOR BLOOD CULTURE / Unknown 10/22/2021 6:17 PM CDT 10/22/2021 6:35 PM CDT [facility] MICROBIOLOGY - GENERAL [place] TEJEDA Final Result [facility] [address] [place] [address], [place] [phone] * CULTURE, BACTERIA, BLOOD (10/22/2021 6:17 PM CDT) [facility] Signature SPEC DESCRIPTION BLOOD 10/22/2021 5:56 PM CDT [facility] SPECIAL REQUESTS NO SPECIAL REQUEST 10/22/2021 5:56 PM CDT [facility] CULTURE RESULT NO GROWTH 5 DAYS 10/27/2021 2:17 PM CDT [facility] BLOOD SPECIMEN OBTAINED FOR BLOOD CULTURE / Unknown 10/22/2021 6:17 PM CDT 10/22/2021 6:34 PM CDT [facility] MICROBIOLOGY - GENERAL ORDE RABLES Final Result Performing Organization Address City/[facility]/ZIP Co de Phone Number [facility] [address] [place] [phone], * PROCALCITONIN (PCT) (10/22/2021 6:17 PM CDT) Procalcitonin <0.05 <0.5 NG/ML 10/22/2021 7:32 PM CDT [facility] 10/22/2021 6:17 PM CDT [facility]CH[facility] LABORATORY Final Resul t Performing Organization Address City/[facility]/ZIP Co de Phone Number [facility] [address] [place] [id number], [place] [phone] * (ABNORMAL) TROPONIN, QUANT (10/22/2021 6:17 PM CDT) TROPONIN I HIGH SENSITIVITY 61(H) <54 ng/L 10/22/2021 7:22 PM CDT [facility] Comment: HIGH DOSES OF BIOTIN, TROPONIN-SPECIFIC AUTOANTIBODIES, AND ANTIBODY THERAPY CONTAINING HAMA MAY INTERFERE WITH THIS TEST RESULT. CORRELATION TO CLINICAL HISTORY AND PRESENTATION RECOMMENDED. 10/22/2021 6:17 PM CDT us [facility] LABORATORY Final Resul t [facility] [address] [place] [address], * (ABNORMAL) COMPREHENSIVE METABOLIC PANEL (10/22/2021 6:17 PM CDT) [facility] GLUCOSE 79 70 - 99 MG/DL 10/22/2021 7:22 PM CDT [facility] BUN 59(H) 7 - 18 MG/DL 10/22/2021 7:22 PM CDT [facility] CREATININE S/P/B 2.19(H) 0.55 - 1.02 MG/DL 10/22/2021 7:22 PM CDT [facility] SODIUM S/P/B 135(L) 136 - 145 MMOL/L 10/22/2021 7:22 PM CDT [facility] POTASSIUM S/P/B 5.3(H) 3.5 - 5.1 MMOL/L 10/22/2021 7:22 PM CDT [facility] CHLORIDE S/P/B 106 100 - 108 MMOL/L 10/22/2021 7:22 PM CDT [facility] CO2 25.6 21 - 32 MMOL/L 10/22/2021 7:22 PM CDT [facility] CALCIUM S/P/B 9.1 8.5 - 10.1 MG/DL 10/22/2021 7:22 PM CDT [facility] BILIRUBIN TOTAL S/P/B 0.3 0.2 - 1.2 MG/DL 10/22/2021 7:22 PM CDT [facility] Comment: THIS ASSAY IS NOT RECOMMENDED FOR PATIENTS UNDERGOING TREATMENT WITH ELTROMBOPAG DUE TO THE POTENTIAL FOR FALSELY ELEVATED RESULTS. TOTAL PROTEIN S/P/B 6.1(L) 6.4 - 8.2 G/DL 10/22/2021 7:22 PM CDT [facility] ALBUMIN S/P/B 2.6(L) 3.4 - 5.0 G/DL 10/22/2021 7:22 PM CDT [facility] AST 26 15 - 37 U/L 10/22/2021 7:22 PM CDT [facility] ALT 24 14 - 55 U/L 10/22/2021 7:22 PM CDT [facility] ALKALINE PHOSPHATASE S/P/B 85 50 - 136 U/L 10/22/2021 7:22 PM T [facility] ANION GAP 3.4(L) 5 - 15 MMOL/L 10/22/2021 7:22 PM T [facility] BUN CREATININE RATIO 26.9(H) 6 - 26 10/22/2021 7:22 PM T [facility] A/G RATIO 0.7(L) 1.0 - 2.0 RATIO 10/22/2021 7:22 PM T [facility] GFR ESTIMATE 23(L) >90 ML/MIN/1.7 3 M2 10/22/2021 7:22 PM T [facility] Comment: NOTE: eGFR is not calculated for patients <18 years of age. This is an estimated GFR calculation using the new CKD EPI creatinine equation without race and so does not require a correction factor for race. This estimated GFR should not be used for calculating drug doses. 10/22/2021 6:17 PM CDT us Sanjana ARECHIGA LABORATORY Final Resul t [facility] [address] [place] [address], * (ABNORMAL) CBC W/DIFF AUTOMATED (10/22/2021 6:17 PM CDT) [facility] WBC 4.0(L) 4.5 - 11.0 x10'3/uL 10/22/2021 7:22 PM CDT [facility] RBC 2.94(L) 4.20 - 5.40 x10'6/uL 10/22/2021 7:22 PM CDT [facility] HGB 9.2(L) 12.0 - 16.0 G/DL 10/22/2021 7:22 PM CDT [facility] HCT 31.1(L) 38.0 - 48.0 % 10/22/2021 7:22 PM CDT [facility] MCV 105.8(H) 81.0 - 99.0 FL 10/22/2021 7:22 PM CDT [facility] MCH 31.3(H) 27.0 - 31.0 PG 10/22/2021 7:22 PM CDT [facility] MCHC 29.6(L) 32.0 - 36.0 G/DL 10/22/2021 7:22 PM CDT [facility] RDW 12.2 11.5 - 14.5 % 10/22/2021 7:22 PM CDT [facility] PLT 178 130 - 400 x10'3/uL 10/22/2021 7:22 PM CDT [facility] MPV 13.6(H) 9.3 - 12.2 FL 10/22/2021 7:22 PM CDT [facility] DIFFERENTIAL TYPE AUTOMATED DIFFERENTIAL 10/22/2021 7:24 PM CDT [facility] NEUTROPHILS % 45.8 % 10/22/2021 7:24 PM CDT [facility] LYMPHOCYTES % 27.0 % 10/22/2021 7:24 PM CDT [facility] MONOCYTES % 19.9 % 10/22/2021 7:24 PM CDT [facility] EOSINOPHILS 5.5 % 10/22/2021 7:24 PM CDT [facility] BASOPHILS 1.3 % 10/22/2021 7:24 PM CDT [facility] IMMATURE GRANS % 0.5 % 10/23/19 7:24 PM CDT [facility] ABS. NEUTROPHILS TOTAL 1.82 1.80 - 7.70 x10'3/uL 10/22/2021 7:24 PM CDT [facility] ABS. LYMPHOCYTES 1.07 1.00 - 4.80 x10'3/uL 10/22/2021 7:24 PM CDT [facility] ABS. MONOCYTES 0.79 0.24 - 0.86 x10'3/uL 10/22/2021 7:24 PM CDT [facility] ABS. EOSINOPHILS 0.22 0.04 - 0.36 x10'3/uL 10/22/2021 7:24 PM CDT [facility] ABS. BASOPHILS 0.05 0.01 - 0.08 x10'3/uL 10/22/2021 7:24 PM CDT [facility] ABS. IMMATURE GRANULOCYTES 0.02 0.00 - 0.49 x10'3/uL 10/22/2021 7:24 PM CDT [facility] RBC MORPHOLOGY SLIDE REVIEWED 2021 7:24 PM CDT [facility] MACRO 1+ 10/22/2021 7:24 PM CDT [facility] PLT EST. ADEQUATE 10/22/2021 7:24 PM CDT [facility] PATHOLOGIST COMMENT PATHOLOGIST REVIEW TO FOLLOW. 10/22/2021 7:24 PM CDT [facility] 10/22/2021 6:17 PM CDT us Sanjana Bates PA LABORATORY Final Resul t [facility] [address] [place] [address], * ECG 12 lead (10/22/2021 6:11 PM CDT) 10/22/2021 6:11 PM CDT Narrative [facility] ([facility]) RAD - 10/23/2021 1:58 PM CDT ?[facility] ? [address] [facility] [place] ? Test Date: ?2021-10-22 Pat Name: ? ANA MARIA JERAMIE ?Department: ?? 41 ? Room: ? B443 Gender: ? Female ? Credit Report Checker: ?? : ?1945 ? Requested By: SANJANA BATES Order Number: [id number] ? Reading : ?? Sanjana Ludwig ? Measurements Intervals ?[place] ? Rate: ? 86 ? P: ? MS: ? 0 ?QRS: ?-37 QRSD: ? 160 ?T: ?98 QT: ? 411 ? QTc: ?494 ? Interpretive Statements ATRIAL FIBRILLATION LEFT AXIS DEVIATION ??[QRS AXIS < -30] LEFT BUNDLE BRANCH BLOCK ??[120+ ms QRS DURATION, 80+ ms Q/S IN V1/V2, 85+ ms R IN I/aVL/V5/V6] Compared to ECG 10/15/2021 17:09:13 Left-axis deviation now present Procedure Note Sanjana Ludwig MD - 10/23/2021 [facility] [address] [facility] Test Date: 2021-10-22 Pat Name: ANA MARIA BOBO Department: 41 Room: 43 Gender: Female Credit Report Checker: : 1945 Requested By: SANJANA BATES Order Number: [id number] Reading MD: Sanjana Ludwig Measurements Intervals [place] Rate: 86 P: MS: 0 QRS: -37 QRSD: 160 T: 98 QT: 411 QTc: 494 Interpretive Statements ATRIAL FIBRILLATION LEFT AXIS DEVIATION [QRS AXIS < -30] LEFT BUNDLE BRANCH BLOCK [120+ ms QRS DURATION, 80+ ms Q/S IN V1/V2, 85+ms R IN I/aVL/V5/V6] Compared to ECG 10/15/2021 17:09:13 Left-axis deviation now present us Sanjana ARECHIGA ECG ORDERABLES Final Resul t [facility] RAD documented in this encounter Visit Diagnoses Diagnosis OLIVE (acute kidney injury) (CMS/HCC)- Primary Acute kidney failure, unspecified Hypotension Hypotension, unspecified Elevated troponin Other abnormal blood chemistry Dehydration Weakness Other malaise and fatigue Pneumonia of left lower lobe due to infectious organism documented in this encounter Admitting Diagnoses Diagnosis OLIVE (acute kidney injury) (CMS/HCC) Acute kidney failure, unspecified documented in this encounter Administered Medications Inactive Administered Medications - up to 3 most recent administrations Medication Order MAR Action Action Date Dose Rate Site azithromycin (ZITHROMAX) tablet 500 mg 500 mg, Oral, Daily, 3 doses, First dose on Sandi 10/24/21 at 1530, Last dose on 10/26/21 at 0900Indications:Pneumonia of left lower lobe due to infectious organism Given 10/26/2021 8:51 AM CDT 500 mg Given 10/25/2021 8:57 AM CDT 500 mg Given 10/24/2021 4:44 PM CDT 500 mg calcium carbonate (TUMS) chewable tablet 500 mg 500 mg, Oral, Daily as needed, Indigestion, Starting on 10/28/21 at 1402, Until Thu11/05/21 at 1914 Given 11/01/2021 10:46 AM CDT 500 mg cefdinir (OMNICEF) capsule 300 mg 300 mg, Oral, Daily, 4 doses, First dose (after last reorder) on Thu10/23/21 at 0900, Last dose on Thu10/26/21 at 0900, Renal dose adjustment per P&T protocol for CrCl < 30 10/22/21 - 10/26/21 Given 10/26/2021 8:51 AM CDT 300 mg Given 10/25/2021 8:57 AM CDT 300 mg Given 10/24/2021 8:29 AM CDT 300 mg ceFOXItin (MEFOXIN) 1 g in sodium chloride 0.9 % 50 mL IVPB 1 g, Intravenous, at 100 mL/hr, Every 6 hours, First dose on Thu10/27/21 at 1030, Until Discontinued New Bag 11/01/2021 10:23 AM CDT 1 g 100 m L/hr New Bag 11/01/2021 4:01 AM CDT 1 g 100 mL/hr New Bag 10/31/2021 9:58 PM CDT 1 g 100 mL/hr furosemide (LASIX) injection 40 mg 40 mg, Intravenous, Once, 1 dose, On Thu11/01/21 at 1000, Administer IV push 20-40mg/min. Given 11/01/2021 10:41 AM CDT 40 mg furosemide (LASIX) injection 60 mg 60 mg, Intravenous, 2 times daily, First dose on Thu11/01/21 at 1700, Until Discontinued, Administer IV push 20-40mg/min. Given 11/04/2021 8:29 AM CDT 60 mg Given 11/03/2021 5:57 PM CDT 60 mg Given 11/03/2021 9:36 AM CDT 60 mg furosemide (LASIX) tablet 20 mg 20 mg, Oral, Daily, First dose on Thu10/26/21 at 0900, Until Discontinued Given 11/01/2021 8:30 AM CDT 20 mg Given 10/31/2021 8:36 AM CDT 20 mg Given 10/30/2021 8:20 AM CDT 20 mg furosemide (LASIX) tablet 60 mg 60 mg, Oral, Daily, First dose on Thu11/05/21 at 0900, Until Discontinued Given 11/05/2021 8:48 AM CDT 60 mg gabapentin (NEURONTIN) capsule 300 mg 300 mg, Oral, 2 times daily, First dose on Thu10/22/21 at 2100, Until Discontinued Given 11/05/2021 8:47 AM CDT 300 mg Given 11/04/2021 8:00 PM CDT 300 mg Given 11/04/2021 8:29 AM CDT 300 mg Generic Radiopharmaceutical 41.6 millicurie 41.6 millicurie, Intravenous, IMG once as needed, Rest 10.4 mCi Tc99m Myoview, Stress 31.2 mCi, 1 dose, Starting on Thu10/31/21 at 1339, Until Thu10/31/21 at 1340 Given 10/31/2021 1:40 PM CDT 41.6 millicuries Left Arm HYDROcodone-acetaminophen (NORCO) 5-325 MG tablet 1 tablet 1 tablet, Oral, Every 4 hours PRN, Moderate pain (Scale 4 - 7), Starting on Thu10/22/21 at 2041, Until Thu11/05/21 at 1914, Maximum dose of acetaminophen is 4000 mg from all sources in 24 hours. Given 11/05/2021 5:06 PM CDT 1 tablet Given 11/05/2021 8:52 AM CDT 1 tablet Given 11/05/2021 4:22 AM CDT 1 tablet lidocaine 4 % patch 1 patch 1 patch, Transdermal, Every 24 hours, First dose on Thu10/22/21 at 2100, Until Discontinued Patch Applied 10/29/2021 2:02 PM CDT 1 patch Left Shoulder Patch Applied 10/28/2021 8:20 PM CDT 1 patch Left Shoulder Patch Applied 10/27/2021 9:07 PM CDT 1 patch Left Shoulder lidocaine 4 % patch 1 patch 1 patch, Transdermal, Every 24 hours, First dose (after last modification) on Thu10/30/21 at 1700, Until Discontinued Patch Applied 11/05/2021 5:04 PM CDT 1 patch Left Shoulder Patch Applied 11/04/2021 5:39 PM CDT 1 patch Left Shoulder Patch Applied 11/03/2021 5:57 PM CDT 1 patch Left Shoulder lisinopril (PRINIVIL) tablet 2.5 mg 2.5 mg, Oral, Daily, First dose on Thu10/31/21 at 1930, Until Discontinued Given 11/05/2021 8:47 AM CDT 2.5 mg Given 11/04/2021 8:29 AM CDT 2.5 mg Given 11/03/2021 9:35 AM CDT 2.5 mg magnesium sulfate IVPB 2 g 2 g, Intravenous, at 25 mL/hr, Once, 1 dose, On 11/03/21 at 0930 New Bag 11/03/2021 10:30 AM CDT 2 g 25 mL/hr methIMAzole (TAPAZOLE) tablet 5 mg 5 mg, Oral, Daily, First dose on Thu10/23/21 at 0900, Until Discontinued, HAZARDOUS MEDICATION: wear single chemotherapy approved gloves. Do not open or split. If crushing, use approved closed-system crushing device for hazardous medications. Given 11/05/2021 8:48 AM CDT 5 mg Given 11/04/2021 8:29 AM CDT 5 mg Given 11/03/2021 9:35 AM CDT 5 mg metoprolol tartrate (LOPRESSOR) tablet 12.5 mg 12.5 mg, Oral, 2 times daily, First dose on Thu10/26/21 at 2100, Until Discontinued, Hold if heart rate < 55 OR SBP < 95 Given 11/05/2021 8:47 AM CDT 12.5 mg Given 11/04/2021 8:00 PM CDT 12.5 mg Given 11/04/2021 8:29 AM CDT 12.5 mg nitroglycerin (NITROSTAT) SL tablet 0.4 mg 0.4 mg, Sublingual, Every 5 min PRN, Chest Pain, Starting on Thu10/30/21 at 1144, Until Thu11/05/21 at 1914 Given 10/30/2021 12:15 PM CDT 0.4 mg Given 10/30/2021 12:10 PM CDT 0.4 mg Given 10/30/2021 11:49 AM CDT 0.4 mg ondansetron (ZOFRAN) injection 4 mg 4 mg, Intravenous, Every 8 hours PRN, Nausea, Vomiting, Starting on Thu10/22/21 at 2040, Until Thu11/05/21 at 1914, IV push over 2-5 minutes. Given 10/28/2021 5:54 PM CDT 4 mg pantoprazole EC (PROTONIX) tablet 20 mg 20 mg, Oral, Daily, First dose on Thu10/23/21 at 0900, Until Discontinued, Do not break, chew, or crush. Given 11/05/2021 8:48 AM CDT 20 mg Given 11/04/2021 8:29 AM CDT 20 mg Given 11/03/2021 9:35 AM CDT 20 mg regadenoson (LEXISCAN) injection 0.4 mg 0.4 mg, Intravenous, Once, 1 dose, On [facility] 10/31/21 at 1245, Administer over 10 seconds Given 10/31/2021 10:30 AM CDT 0.4 mg senna-docusate (SENOKOT-S) 8.6-50 MG tablet 1 tablet 1 tablet, Oral, Nightly at bedtime, First dose on Thu10/22/21 at 2100, Until Discontinued Given 11/03/2021 8:00 PM CDT 1 tablet Given 11/01/2021 8:17 PM CDT 1 tablet Given 10/27/2021 9:04 PM CDT 1 tablet sodium chloride 0.9 % infusion 1 dose, Starting on Thu10/22/21 at 1901, Until Thu10/22/21 at 1921, Created by cabinet override sodium chloride 0.9% bolus infusion 1,000 mL 1,000 mL, Intravenous, Administer over 30 Minutes, Once, 1 dose, On Thu10/22/21 at 1800 New Bag 10/22/2021 6:25 PM CDT 1,000 mLs sodium chloride 0.9% bolus infusion 1,000 mL 1,000 mL, Intravenous, Administer over 15 Minutes, Once, 1 dose, On Thu10/22/21 at 1915 New Bag 10/22/2021 7:06 PM CDT 1,000 mLs sodium chloride 0.9% infusion at 125 mL/hr, Intravenous, Continuous, Starting on Thu10/22/21 at 2000, Until Thu10/22/21 at 204 New Bag 10/22/2021 8:29 PM CDT 125 mL/hr venlafaxine XR (EFFEXOR-XR) 24 hr capsule 150 mg 150 mg, Oral, Daily with breakfast, First dose on Thu10/23/21 at 0800, Until Discontinued, Swallow capsule whole or it may be opened and the contents sprinkled on applesauce. Given 11/05/2021 8:48 AM CDT 150 mg Given 11/04/2021 8:29 AM CDT 150 mg Given 11/03/2021 9:35 AM CDT 150 mg warfarin (COUMADIN) pharmacy to dose placeholder Oral, See admin instructions, Starting on Thu10/25/21 at 0955, Until Thu11/05/21 at 1914, Warfarin Placeholder Only: Do NOT document administrations on this placeholder. (Use medication on MAY to document administrations or contact pharmacy if medication order not entered.) warfarin (COUMADIN) tablet 1 mg 1 mg, Oral, Daily (warfarin), First dose on Thu10/30/21 at 1700, Until Discontinued, HAZARDOUS MEDICATION: wear single chemotherapy approved gloves. Do not open or split. If crushing, use approved closed-system crushing device for hazardous medications. Given 10/30/2021 4:24 PM CDT 1 mg warfarin (COUMADIN) tablet 2.5 mg 2.5 mg, Oral, Once, 1 dose, On Thu11/01/21 at 1700, HAZARDOUS MEDICATION: wear single chemotherapy approved gloves. Do not open or split. If crushing, use approved closed-system crushing device for hazardous medications. Given 11/01/2021 4:54 PM CDT 2.5 mg warfarin (COUMADIN) tablet 3 mg 3 mg, Oral, Once, 1 dose, On Thu10/29/21 at 1700, HAZARDOUS MEDICATION: wear single chemotherapy approved gloves. Do not open or split. If crushing, use approved closed-system crushing device for hazardous medications. Given 10/29/2021 5:02 PM CDT 3 mg warfarin (COUMADIN) tablet 3 mg 3 mg, Oral, Once, 1 dose, On Thu10/31/21 at 1700, HAZARDOUS MEDICATION: wear single chemotherapy approved gloves. Do not open or split. If crushing, use approved closed-system crushing device for hazardous medications. Given 10/31/2021 5:31 PM CDT 3 mg warfarin (COUMADIN) tablet 3 mg 3 mg, Oral, Once, 1 dose, On Thu11/02/21 at 1700, HAZARDOUS MEDICATION: wear single chemotherapy approved gloves. Do not open or split. If crushing, use approved closed-system crushing device for hazardous medications. Given 11/02/2021 5:54 PM CDT 3 mg warfarin (COUMADIN) tablet 3 mg 3 mg, Oral, Once, 1 dose, On 11/05/21 at 1700, Per warfarin P&T protocol HAZARDOUS MEDICATION: wear single chemotherapy approved gloves. Do not open or split. If crushing, use approved closed-system crushing device for hazardous medications. Given 11/05/2021 5:04 PM CDT 3 mg warfarin (COUMADIN) tablet 4 mg 4 mg, Oral, Once, 1 dose, On Sandi 10/24/21 at 1700, Per warfarin P&T protocol HAZARDOUS MEDICATION: wear single chemotherapy approved gloves. Do not open or split. If crushing, use approved closed-system crushing device for hazardous medications. Given 10/24/2021 4:44 PM CDT 4 mg warfarin (COUMADIN) tablet 4 mg 4 mg, Oral, Once, 1 dose, On 10/26/21 at 1700, Per warfarin P&T protocol HAZARDOUS MEDICATION: wear single chemotherapy approved gloves. Do not open or split. If crushing, use approved closed-system crushing device for hazardous medications. Given 10/26/2021 6:13 PM CDT 4 mg warfarin (COUMADIN) tablet 4 mg 4 mg, Oral, Once, 1 dose, On 10/28/21 at 1700, HAZARDOUS MEDICATION: wear single chemotherapy approved gloves. Do not open or split. If crushing, use approved closed-system crushing device for hazardous medications. Given 10/28/2021 5:06 PM CDT 4 mg warfarin (COUMADIN) tablet 4 mg 4 mg, Oral, Once, 1 dose, On Thu11/03/21 at 1700, HAZARDOUS MEDICATION: wear single chemotherapy approved gloves. Do not open or split. If crushing, use approved closed-system crushing device for hazardous medications. Given 11/03/2021 5:57 PM CDT 4 mg warfarin (COUMADIN) tablet 4 mg 4 mg, Oral, Once, 1 dose, On 11/04/21 at 1700, Per warfarin P&T protocol HAZARDOUS MEDICATION: wear single chemotherapy approved gloves. Do not open or split. If crushing, use approved closed-system crushing device for hazardous medications. Given 11/04/2021 5:39 PM CDT 4 mg warfarin (COUMADIN) tablet 5 mg 5 mg, Oral, Once, 1 dose, On Thu10/25/21 at 1700, Per warfarin P&T protocol HAZARDOUS MEDICATION: wear single chemotherapy approved gloves. Do not open or split. If crushing, use approved closed-system crushing device for hazardous medications. Given 10/25/2021 5:16 PM CDT 5 mg documented in this encounter Active and Recently Administered Medications Times are shown in CDT. Scheduled Medication Order 11/03/2021 11/04/2021 11/05/2021 furosemide (LASIX) injection 60 mg (CANCELED) 60 mg, Intravenous, 2 times daily, First dose on Thu11/01/21 at 1700, Until Discontinued, Administer IV push 20-40mg/min. 0936 (Given - Provider: Saranya Mixon RN)1757 (Given - Provider: Saranya Mixon RN) 08 (Given - Provider: Saranya Mixon RN) furosemide (LASIX) tablet 60 mg 60 mg, Oral, Daily, First dose on Thu11/05/21 at 0900, Until Discontinued 0848 (Given - Provider: Jaylyn Villasenor, DALE) gabapentin (NEURONTIN) capsule 300 mg 300 mg, Oral, 2 times daily, First dose on Thu10/22/21 at 2100, Until Discontinued 0935 (Given - Provider: Saranya Mixon RN)1999 (Given - Provider: Sharon Avelar, DALE) 08 (Given - Provider: Saranya Mixon, DALE)1999 (Given - Provider: Sharon Avelar, DALE) 0847 (Given - Provider: Jaylyn Villasenor, DALE) lidocaine 4 % patch 1 patch 1 patch, Transdermal, Every 24 hours, First dose (after last modification) on Thu10/30/21 at 1700, Until Discontinued 175 (Patch Applied - Provider: Saranya Mixon RN) 173 (Patch Applied - Provider: Saranya Mixon RN) 170 (Patch Applied - Provider: Jaylyn Villasenor, DALE) lisinopril (PRINIVIL) tablet 2.5 mg 2.5 mg, Oral, Daily, First dose on Thu10/31/21 at 1930, Until Discontinued 0935 (Given - Provider: Saranya Mixon RN) 08 (Given - Provider: Saranya Mixon, DALE) 0847 (Given - Provider: Jaylyn Villasenor, DALE) magnesium sulfate IVPB 2 g (COMPLETED) 2 g, Intravenous, at 25 mL/hr, Once, 1 dose, On Thu11/03/21 at 0930 1030 (New Bag - Provider: Saranya Mixon, RN)1332 (Infusion Stop Time - Provider: Saranya Mixon RN) methIMAzole (TAPAZOLE) tablet 5 mg 5 mg, Oral, Daily, First dose on Thu10/23/21 at 0900, Until Discontinued, HAZARDOUS MEDICATION: wear single chemotherapy approved gloves. Do not open or split. If crushing, use approved closed-system crushing device for hazardous medications. 0935 (Given - Provider: Saranya Mixon RN) 08 (Given - Provider: Saranya Mixon RN) 0848 (Given - Provider: Jaylyn Villasenor, DALE) metoprolol tartrate (LOPRESSOR) tablet 12.5 mg 12.5 mg, Oral, 2 times daily, First dose on Thu10/26/21 at 2100, Until Discontinued, Hold if heart rate < 55 OR SBP < 95 0935 (Given - Provider: Saranya Mixon RN)1999 (Given - Provider: Sharon Avelar, DALE) 08 (Given - Provider: Saranya Mixon, DALE)1999 (Given - Provider: Sharon Avelar, DALE) 0847 (Given - Provider: Jaylyn Villasenor, DALE) morphine injection 1 mg 1 mg, Intravenous, Once, 1 dose, On Thu10/27/21 at 0845 pantoprazole EC (PROTONIX) tablet 20 mg 20 mg, Oral, Daily, First dose on Thu10/23/21 at 0900, Until Discontinued, Do not break, chew, or crush. 0935 (Given - Provider: Saranya Mixon RN) 0829 (Given - Provider: Saranya Mixon, DALE) 0848 (Given - Provider: Jaylyn Villasenor, DALE) senna-docusate (SENOKOT-S) 8.6-50 MG tablet 1 tablet 1 tablet, Oral, Nightly at bedtime, First dose on Thu10/22/21 at 2100, Until Discontinued 1999 (Given - Provider: Sharon Avelar, RN) 1857 (Not Given - Provider: Sharon Avelar RN - Reason: Patient/family declined) venlafaxine XR (EFFEXOR-XR) 24 hr capsule 150 mg 150 mg, Oral, Daily with breakfast, First dose on Thu10/23/21 at 0800, Until Discontinued, Swallow capsule whole or it may be opened and the contents sprinkled on applesauce. 0935 (Given - Provider: Saranya Mixon RN) 0829 (Given - Provider: Saranya Mixon RN) 0848 (Given - Provider: Jaylyn Villasenor, DALE) warfarin (COUMADIN) pharmacy to dose placeholder(Linked Group 1) Oral, See admin instructions, Starting on Thu10/25/21 at 0955, Until Thu11/05/21 at 1914, Warfarin Placeholder Only: Do NOT document administrations on this placeholder. (Use medication on MAY to document administrations or contact pharmacy if medication order not entered.) warfarin (COUMADIN) tablet 3 mg (COMPLETED) 3 mg, Oral, Once, 1 dose, On Thu11/05/21 at 1700, Per warfarin P&T protocol HAZARDOUS MEDICATION: wear single chemotherapy approved gloves. Do not open or split. If crushing, use approved closed-system crushing device for hazardous medications. 170 (Given - Provider: Jaylyn Villasenor, DALE) warfarin (COUMADIN) tablet 4 mg (COMPLETED) 4 mg, Oral, Once, 1 dose, On Thu11/03/21 at 1700, HAZARDOUS MEDICATION: wear single chemotherapy approved gloves. Do not open or split. If crushing, use approved closed-system crushing device for hazardous medications. 175 (Given - Provider: Saranya Mixon RN) warfarin (COUMADIN) tablet 4 mg (COMPLETED) 4 mg, Oral, Once, 1 dose, On Thu11/04/21 at 1700, Per warfarin P&T protocol HAZARDOUS MEDICATION: wear single chemotherapy approved gloves. Do not open or split. If crushing, use approved closed-system crushing device for hazardous medications. 173 (Given - Provider: Saranya Mixon RN) PRN Medication Order 11/03/2021 11/04/2021 11/05/2021 acetaminophen (TYLENOL) tablet 650 mg 650 mg, Oral, Every 4 hours PRN, Fever, Discomfort, Starting on Thu10/22/21 at 2039, Until Thu11/05/21 at 1913, Maximum dose of acetaminophen is 4000 mg from all sources in 24 hours. albuterol sulfate HFA 108 (90 Base) MCG/ACT inhaler 2 puff 2 puff, Inhalation, Every 4 hours PRN, Wheezing, Shortness of breath, Starting on Thu10/22/21 at 2040, Until Thu11/05/21 at 1913 ALPRAZolam (XANAX) tablet 0.25 mg 0.25 mg, Oral, 2 times daily PRN, Anxiety, Starting on Thu10/22/21 at 2037, Until Thu11/05/21 at 1913 calcium carbonate (TUMS) chewable tablet 500 mg 500 mg, Oral, Daily as needed, Indigestion, Starting on Thu10/28/21 at 1402, Until Thu11/05/21 at 1913 dextrose 10 % bolus infusion 125-250 mL 125-250 mL, Intravenous, Administer over 15 Minutes, As needed, Low Blood Sugar, Starting on Thu10/22/21 at 2039, Until Thu11/05/21 at 1913, If patient is verbally responsive and NPO or unable to swallow: Blood glucose less than 50 mg/dL - give 250 mL (25 g) and repeat until blood glucose reaches 70 mg/dL Blood glucose 50-69 mg/dL - give 125 mL (12.5 g) and repeat until blood glucose reaches 70 mg/dL If patient is verbally Unresponsive and NPO or unable to swallow: Blood glucose less than 70 mg/dL - give 250 mL (25 g), repeat until blood glucose reaches 70 mg/dL glucagon injection 1 mg 1 mg, Intramuscular, Once as needed, Other, Low blood sugar, 1 dose, Starting on Thu10/22/21 at 2039, Until Thu11/05/21 at 1913, If patient is verbally UNresponsive and no IV access with blood glucose less than 70 mg/dL. Do NOT repeat administration. glucose oral gel 32-64 mL 32-64 mL (15-30 g of dextrose), Oral, As needed, Low blood sugar, Starting on Thu10/22/21 at 2039, Until Thu11/05/21 at 1913, If patient is verbally responsive and taking thickened liquids or oral medications: Blood glucose less than 50 mg/dL - give 30 g of dextrose; repeat until blood glucose reaches 70 mg/dL Blood glucose 50-69 mg/dL - give 15 g of dextrose; repeat until blood glucose reaches 70 mg/dL 32 mL of glucose gel = 15 g of dextrose HYDROcodone-acetaminophe n (NORCO) 5-325 MG tablet 1 tablet 1 tablet, Oral, Every 4 hours PRN, Moderate pain (Scale 4 - 7), Starting on Thu10/22/21 at 2040, Until Thu11/05/21 at 1913, Maximum dose of acetaminophen is 4000 mg from all sources in 24 hours. 1119 (Given - Provider: Saranya Mixon, DALE)2003 (Given - Provider: Sharon Avelar, DALE) 1015 (Given - Provider: Saranya Mixon, DALE)1954 (Given - Provider: Sharon Avelar, DALE) 0422 (Given - Provider: Sharon Avelar, DALE)0852 (Given - Provider: Jaylyn Villasenor, DALE)1706 (Given - Provider: Jaylyn Villasenor, DALE) cctalpimx-dmnkelhd-zofuu hicone (MYLANTA MAXIMUM STRENGTH) 3626-1495-683 mg/30mL suspension 10 mL, Oral, Every 4 hours PRN, Indigestion, Heartburn, Starting on Thu10/22/21 at 2040, Until Thu11/05/21 at 1913, Shake Well naLOXone (NARCAN) injection 0.4 mg 0.4 mg, Intravenous, As needed, Opioid reversal, Starting on Thu10/22/21 at 204, Until Thu11/05/21 at 191 nitroglycerin (NITROSTAT) SL tablet 0.4 mg 0.4 mg, Sublingual, Every 5 min PRN, Chest Pain, Starting on Thu10/30/21 at 1144, Until Thu11/05/21 at 191 ondansetron (ZOFRAN) injection 4 mg 4 mg, Intravenous, Every 8 hours PRN, Nausea, Vomiting, Starting on Thu10/22/21 at 2040, Until Thu11/05/21 at 1914, IV push over 2-5 minutes. polyethylene glycol (GLYCOLAX) packet 17 g 17 g, Oral, Daily as needed, Constipation, Starting on Thu10/22/21 at 2040, Until Thu11/05/21 at 191, If both senna and polyethylene glycol are ordered, use 1st; if no response by next dosing interval, go to next option. Linked Groups Order Group 1: Pharmacy to dose warfarin (COUMADIN) (CANCELED) Routine, Once, On Thu10/25/21 at 0956, For 1 occurrence, [facility] INR? 2.5-3.5 And warfarin (COUMADIN) pharmacy to dose placeholderJump to med Oral, See admin instructions, Starting on Thu10/25/21 at 0955, Until Thu11/05/21 at 191, Warfarin Placeholder Only: Do NOT document administrations on this placeholder. (Use medication on MAY to document administrations or contact pharmacy if medication order not entered.) documented in this encounter Additional Health Concerns Assessment Noted Time PHQ-9 Depression Total Score: 0 05/25/19 22 9:23 AM CDT documented as of this encounter Care Teams Ware Server Relationship Specialty Start Date End Date Suleman Webster DO [address] [place] [id number] PCP - General FAMILY PRACTICE 09/25/20 Dianne Johnson, RN [address] [place] [address] Recordist (Ambulatory) REGISTERED NURSE 08/14/20 documented as of this encounter
--- OUTSIDE RECORDS SUMMARY | 2024-03-15 01:05 | XMS_ITS | Encounter Summary ---
Author Organization [facility] Address [facility] [place] [address] [place] [address] Care Team Providers Care Window And Door Installer Name Role Phone Dianne Johnson RN Unavailable [phone] Sanjeev Webster DO Primary Care Provider + Encounter Details Date Type Department Care Team (Latest Contact Info) Description 10/22/2021 Travel Social History Tobacco Use Types Packs/Day [...] suspected to have Coronavirus/COVID-19? No / Unsure 10/22/2021 12:06 PM CDT documented as of this encounter Functional Status * Question Answer Date of Assessment Author Status Do you have serious difficulty walking or climbing stairs? Yes 10/22/2021 10:00 PM CDT Tresa Lemons RN Activ e * Question Answer Date of Assessment Author Status Do you have difficulty dressing or bathing? No 10/22/2021 10:00 PM Tresa Wilkinson RN A ctive Because of a physical, mental, or emotional condition, do you have difficulty doing errands alone such as visiting a doctor's office or shopping? Yes 10/22/2021 10:00 PM Tresa Wilkinson RN Active * RETIRED Are you deaf or do you have serious difficulty hearing Answer Date of Assessment Author Status No 10/15/2021 8:42 PM CDT Activ e * RETIRED Are you blind or do you have serious difficulty seeing, even when wearing glasses? Answer Date of Assessment Author Status No 10/15/2021 8:42 PM CDT Activ e * Do you have serious difficulty walking or climbing stairs? Answer Date of Assessment Author Status Yes 10/15/2021 8:42 PM Lakeisha Chiu RN Active * Do you have difficulty dressing or bathing? Answer Date of Assessment Author Status No 10/15/2021 8:42 PM Lakeisha Chiu RN Active * Because of a physical, mental, or emotional condition, do you have difficulty doing errands alone such as visiting a doctor's office or shopping? Answer Date of Assessment Author Status No 10/15/2021 8:42 PM Lakeisha Chiu RN Active documented as of this encounter [...] decisions? Answer Entry Date Author Status No 10/15/2021 8:42 PM Lakeisha Chiu RN Active documented in this encounter Plan of Treatment Upcoming Encounters Date Type Department Care Team (Late st Contact Info) Description 04/14/2024 2:00 PM WARE DRESSER Office Visit [facility] Multispecialty Care - [facility] 3 [facility], [address] [place] [phone] Julio Pulido MD 3 [place] [address] documented as of this encounter Goals Goal Patient Goal Type Associated Problems Recent Progress Patient-Stated? Author Health - patient able to perform ADLs independently General On track(2023 9:49 AM CDT) Dianne Corona RN Note: 12/17/23: Patient stated she is independent with ASL's. Establish Plan for Symptom Monitoring-CHF General On track(2023 11:36 AM WARE DRESSER) Dianne Corona RN Note: Patient will recognize [...] Symptom Monitoring-COPD General On track(2023 11:36 AM WARE DRESSER) Dianne Corona RN Note: Patient will recognize [...] Symptom Monitoring-DM General On track(2023 4:33 PM WARE DRESSER) Dianne Corona RN Note: Patient will manage [...] Symptom Monitoring-HTN General On track(2023 4:33 PM WARE DRESSER) No Dianne Johnson RN Note: Patient will [...] as of this encounter Care Teams Window And Door Installer Relationship Specialty Start Date End Date Sanjeev Webster DO [address] [place] [address] PCP - General FAMILY PRACTICE 09/25/20 Dianne Johnson, RN [address] [place] [address] Health Care Marketing Manager (Ambulatory) REGISTERED NURSE 08/14/20 documented as of this encounter
--- OUTSIDE RECORDS SUMMARY | 2024-03-15 01:05 | XMS_ITS | Encounter Summary ---
Author Organization [facility] Address [facility] [place] [address] [place] [address] Care Team Providers Care Unloader Operator Name Role Phone Dianne Johnson RN Unavailable [phone] Sanjeev Webster DO Primary Care Provider + Encounter Details Date Type Department Care Team (Latest Contact Info) Description 10/27/2021 Travel Social History Tobacco Use Types Packs/Day [...] was confirmed or suspected to have Coronavirus/COVID-19? Unable to assess 10/27/2021 8:32 AM CDT documented as of this encounter [...] Lemons RN Active documented in this encounter Plan of Treatment Upcoming Encounters Date Type Department Care Team (Late st Contact Info) Description 04/14/2024 2:00 PM JAVA TECH LEAD Office Visit [facility] Multispecialty Care - [facility] 3 [facility], [address] [place] [phone] Julio Pulido MD 3 [place] [address] documented as of this encounter Goals Goal Patient Goal Type Associated Problems Recent Progress Patient-Stated? Author Health - patient able to perform ADLs independently General On track(2023 9:49 AM CDT) No Dianne Johnson RN Note: 12/17/23: Patient stated she is independent with ASL's. Establish Plan for Symptom Monitoring-CHF General On track(2023 11:36 AM JAVA TECH LEAD) Dianne Corona, RN Note: Patient will recognize [...] Symptom Monitoring-COPD General On track(2023 11:36 AM JAVA TECH LEAD) Dianne Corona RN Note: Patient will recognize [...] Symptom Monitoring-DM General On track(2023 4:33 PM JAVA TECH LEAD) Dianne Corona RN Note: Patient will manage [...] Symptom Monitoring-HTN General On track(2023 4:33 PM JAVA TECH LEAD) Dianne Corona RN Note: Patient will monitor [...] documented as of this encounter Care Teams Unloader Operator Relationship Specialty Start Date End Date Sanjeev Webster DO [address] [place] [id number] PCP - General FAMILY PRACTICE 09/25/20 Dianne Johnson, RN [address] [place] [address] Photoengraving Retoucher (Ambulatory) REGISTERED NURSE 08/14/20 documented as of this encounter
--- OUTSIDE RECORDS SUMMARY | 2024-03-15 01:05 | XMS_ITS | Encounter Summary ---
Author Organization [facility] Address [facility] [place] [address] [place] [address] Care Team Providers Care Station Installation Supervisor Name Role Phone Dianne Johnson RN Unavailable [phone] Sanjeev Webster DO Primary Care Provider + Encounter Details Date Type Department Care Team (Late st Contact Info) Description 10/16/2021 Patient Outreach [facility] Family & Internal Medicine [address] [address] Dianne Johnson, RN [address] [place] [address] Social History Tobacco Use Types [...] suspected to have Coronavirus/COVID-19? No / Unsure 10/15/2021 10:40 AM CDT documented as of this encounter [...] Assessment Author Status Yes 10/15/2021 8:42 PM CDT Lakeisha Haas RN Active * Do you have difficulty dressing or bathing? Answer Date of Assessment Author Status No 10/15/2021 8:42 PM CDT Lakeisha Haas RN Active * Because of a physical, mental, or emotional condition, do you have difficulty doing errands alone such as visiting a doctor's office or shopping? Answer Date of Assessment Author Status No 10/15/2021 8:42 PM CDT Lakeisha Haas RN Active documented as of this encounter Mental Status * Because of a physical, mental, or emotional condition, do you have serious difficulty concentrating, remembering, or making decisions? Answer Entry Date Author Status No 10/15/2021 8:42 PM CDT Lakesiha Haas RN Active documented in this encounter Progress Notes * Dianne Johnson RN - 10/16/2021 7:04 AM CDT ALEX ED to hospital admission (OBS) on 10/15/21 for chest pain. Care coordination team will complete TCM call back when D/C. Thank you. * Scarlett Guerrero MA - 10/16/2021 7:04 AM CDT pcp aware documented in this encounter Plan of Treatment Upcoming Encounters Date Type Department Care Team (Late st Contact Info) Description 04/14/2024 2:00 PM CLINICAL TRIAL MANAGER Office Visit [facility] Multispecialty [address], [address] [place] [phone] Julio Pulido MD [address] [place] [address] documented as of this encounter Goals Goal Patient Goal Type Associated Problems Recent Progress Patient-Stated? Author Health - patient able to perform ADLs independently General On track(2023 9:49 AM CDT) Dianne Corona RN Note: 12/17/23: Patient stated she is independent with ASL's. Establish Plan for Symptom Monitoring-CHF General On track(2023 11:36 AM CLINICAL TRIAL MANAGER) Dianne Corona RN Note: Patient will [...] Monitoring-COPD General On track(2023 11:36 AM CLINICAL TRIAL MANAGER) Dianne Corona RN Note: Patient will [...] Monitoring-DM General On track(2023 4:33 PM CLINICAL TRIAL MANAGER) No Johnson, Dianne R, RN Note: Patient [...] Monitoring-HTN General On track(2023 4:33 PM CLINICAL TRIAL MANAGER) No Dianne Johnson RN Note: Patient will [...] documented as of this encounter Care Teams Station Installation Supervisor Relationship Specialty Start Date End Date Sanjeev Webster DO [address] [place] [address] PCP - General FAMILY PRACTICE 09/25/20 Dianne Johnson RN [address] [place] [address] News Assignment Editor (Ambulatory) REGISTERED NURSE 08/14/20 documented as of this encounter
--- OUTSIDE RECORDS SUMMARY | 2024-03-15 01:05 | XMS_ITS | Encounter Summary ---
Author Organization [facility] Address [facility] [place] [address] [place] [address] Care Team Providers Care President Educational Institution Name Role Phone Dianne Johnson RN Unavailable [phone] Sanjeev Webster DO Primary Care Provider + Encounter Details Date Type Department Care Team (Latest Contact Info) Description 11/04/2021 Travel Social History Tobacco Use Types Packs/Day [...] Contact Info) Description 04/14/2024 2:00 PM ADMINISTRATIVE COORDINATOR Office Visit [facility] Multispecialty Care - [facility] 3 [facility], [address] [place] [phone] Julio Pulido MD [address] [place] [address] documented as of this encounter Goals Goal Patient Goal Type Associated Problems Recent Progress Patient-Stated? Author Health - patient able to perform ADLs independently General On track(2023 9:49 AM CDT) No Dianne Johnson RN Note: 12/17/23: Patient stated she is independent with ASL's. Establish Plan for Symptom Monitoring-CHF General On track(2023 11:36 AM ADMINISTRATIVE COORDINATOR) Dianne Corona, RN Note: Patient will recognize [...] Monitoring-COPD General On track(2023 11:36 AM ADMINISTRATIVE COORDINATOR) Dianne Corona RN Note: Patient will [...] Monitoring-DM General On track(2023 4:33 PM ADMINISTRATIVE COORDINATOR) Dianne Corona RN Note: Patient will [...] Monitoring-HTN General On track(2023 4:33 PM ADMINISTRATIVE COORDINATOR) Dianne Corona RN Note: Patient will [...] documented as of this encounter Care Teams President Educational Institution Relationship Specialty Start Date End Date Sanjeev Webster DO [address] [place] [id number] PCP - General FAMILY PRACTICE 09/25/20 Dianne Johnson, RN [address] [place] [address] Light Armored Vehicle Officer (Ambulatory) REGISTERED NURSE 08/14/20 documented as of this encounter
--- OUTSIDE RECORDS SUMMARY | 2024-03-15 01:05 | XMS_ITS | Encounter Summary ---
Author Organization [facility] Address [facility] [place] [address] [place] [address] Care Team Providers Care Vp Communications Name Role Phone Dianne Johnson RN Unavailable [phone] Sanjeev Montez DO Primary Care Provider + Reason for Referral * Imaging (Routine) - Closed Specialty Diagnoses / Procedures Referred By Contac vesna Referred To Contact RADIOLOGY Diagnoses 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[facility]/HCC) Procedures CTA HEAD Sanjeev Montez DO [address] [place] [address] Phone: tel: fax: Referral ID Status Reason Start Date Expiration Date Visits Re quested Visits Authorized [id number] Closed 10/08/2021 01/06/2022 1 1 Reason for Visit * Auth/Cert Specialty Diagnoses / Procedures Referred By Contivett malagon Referred To Contact Diagnoses Dehydration Weakness Hypotension Elevated troponin OLIVE (acute kidney injury) ([facility]/HCC) OLIVE (acute kidney injury) ([facility]) Procedures NONE Isamar Torres MD [address] [place] [address] Phone: tel:[phone] fax: Referral ID Status Reason Start Date Expiration Date Visits Re quested Visits Authorized [id number] 1 1 Encounter Details Date Type Department Care Team (Latest Contact Info) Description 10/22/2021 12:08 PM CDT - 10/22/2021 5:52 PM CDT Hospital Encounter [place] [address] [place] [address] Sanjeev Montez, [address] [place] [address] Discharge Disposition: Home or Self Care (Routine [...] Chiu RN Active documented in this encounter Medications [...] disease, unspecified COPD type ([facility]) Inhale 2 puffs into the lungs every 6 (six) hours as needed for Wheezing. 18 g 1 10/10/2021 3 ALPRAZolam (XANAX) 0.25 MG tabletIndications:An xiety Take 1 tablet (0.25 mg total) by mouth 2 (two) times daily as needed for Anxiety. 30 tablet 10/10/2021 2 cefdinir (OMNICEF) 300 MG Cap capsule Take 1 capsule (300 mg total) by mouth 2 (two) times daily for 4 days. 8 capsule 10/22/2021 2 FEROSUL 325 (65 Fe) MG tabletIndications:Ir on deficiency anemia, unspecified iron deficiency anemia type Take 1 tablet by mouth once daily 90 tablet 10/07/2021 2 fluticasone propionate 50 MCG/ACT nasal spray 2 sprays by Nasal route daily. 3 furosemide (LASIX) 20 MG tablet Take 3 tablets (60 mg total) by mouth daily. 60 tablet 3 11/06/2021 2 furosemide (LASIX) 40 MG tablet Take 1 tablet (40 mg total) by mouth daily for 30 days. 30 tablet 10/22/2021 2 gabapentin 300 MG capsuleIndications:B ack pain [...] mouth daily. 30 tablet 3 11/06/2021 2 LISINOPRIL 40 MG tabletIndications:Hy pertensive urgency Take 1 tablet by mouth once daily 90 tablet 1 03/11/2021 2 methIMAzole 5 MG tabletIndications:Hy perthyroidism Take 1 tablet (5 mg total) by mouth daily. 30 tablet 11 08/30/2021 2 metoprolol succinate ER 25 MG 24 hr tabletIndications:At rial fibrillation with rapid ventricular response (CMS/HCC HHS/HCC),Diastolic heart failure (CMS/HCC HHS/HCC) Take 1 tablet (25 mg total) by mouth daily. 30 tablet 1 09/02/2021 2 metoprolol tartrate (LOPRESSOR) 25 MG tablet [...] daily 90 capsule 06/17/2021 2 warfarin (COUMADIN) 5 MG tablet Take 5 mg by mouth daily. 2 documented as of this encounter Plan of Treatment Upcoming Encounters Date Type Department Care Team (Late st Contact Info) Description 04/14/2024 2:00 PM LIME BOILER Office Visit [facility] Multispecialty Care - [facility] 3 [facility], [address] [place] [address] Julio Puliod MD [address] [place] [address] documented as of this encounter Goals Goal Patient Goal Type Associated Problems Recent Progress Patient-Stated? Author Health - patient able to perform ADLs independently General On track(2023 9:49 AM CDT) Dianne Corona RN Note: 12/17/23: Patient stated she is independent with ASL's. Establish Plan for Symptom Monitoring-CHF General On track(2023 11:36 AM LIME BOILER) Dianne Corona, RN Note: Patient will recognize [...] Symptom Monitoring-COPD General On track(2023 11:36 AM LIME BOILER) Dianne Corona RN Note: Patient will recognize [...] Symptom Monitoring-DM General On track(2023 4:33 PM LIME BOILER) Dianne Corona RN Note: Patient will manage [...] Symptom Monitoring-HTN General On track(2023 4:33 PM LIME BOILER) Dianne Corona RN Note: Patient will monitor B/P several times per week , record readings and report to physician or CC if B/P consistently >130/80 Take your medications as prescribed. Follow up with your provider as scheduled. Take your blood pressure at least several times a week if able. documented as of this encounter Procedures Procedure Name Priority Date/Time Associated Diagnosis Comments CTA HEAD Routine 10/22/2021 1:20 PM CDT 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HHS/HCC) documented in this encounter Results * CTA HEAD (10/22/2021 1:20 PM CDT) Anatomical Region Laterality Modality Head Computed Tomogra phy 10/23/2021 9:21 AM CDT Impressions 10/23/2021 9:27 AM CDT IMPRESSION: 1. 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 Similar findings described on prior catheter angiography examination 08/10/2020, though no images are available for direct comparison. Ordered By: SANJEEV MONTEZ Interpreted By: Dale Brush MD, 10/23/2021 9:21 AM Narrative 10/23/2021 9:27 AM CDT DATE: 10/22/2021 12:37 PM INDICATION: Right MCA [...] to the terminus. configuration of the left CERTIFIED MASTER SAFECRACKER with hypoplastic P1 segment and patent posterior communicating artery. Proximal portions of the posterior cerebral arteries, superior cerebellar arteries, and PICA branches are patent. Right posterior communicating artery not well-visualized. SOFT TISSUES: Small vessel disease and volume loss. Bilateral lens replacements. Procedure Note Dale Brush MD - 10/23/2021 DATE: 10/22/2021 12:37 PM INDICATION: Right MCA aneurysm. EXAMINATION: CT angiography of the head. TECHNIQUE: CT angiography of the head was performed after uneventful intravenousadministration of 80mL IOPAMIDOL 76 % IV SOLN. CT dose reductiontechniques were utilized. Axial and 3-D/MIP images were reconstructed andreviewed. Additional 3-D reconstructions and/or postprocessing wereperformed on a separate dedicated 3-D workstation. A dose lowering technique was used for this procedure, which may include,but is not limited to, dose reduction technique, automated exposurecontrol, the use of iterative reconstruction, and ALARA (As Low AsReasonably Achievable) / Image Gently techniques. COMPARISON: Report from catheter angiography performed 08/10/2020, images not availablefor direct comparison. FINDINGS: CTA HEAD: There is a 3-4 mm vascular outpouching at the right MCA bifurcation,corresponding to patient's known right MCA aneurysm. Scatteredatherosclerotic calcifications seen along the cavernous and supraclinoidICA segments, but with less than 50% narrowing suggested. 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 Anterior communicating artery ispatent. Otherwise the proximal portions of the anterior and middlecerebral arteries are patent. Atherosclerotic calcifications seen along the vertebral artery [id number], without significant narrowing. Basilar artery patent to theterminus. configuration of the left CERTIFIED MASTER SAFECRACKER with hypoplastic P1 segmentand patent posterior communicating artery. Proximal portions of theposterior cerebral arteries, superior cerebellar arteries, and PICAbranches are patent. Right posterior communicating artery notwell- visualized. SOFT TISSUES: Small vessel disease and volume loss. Bilateral lens replacements. IMPRESSION: 1. 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 Ordered By: SANJEEV MONTEZ Interpreted By: Dale Brush MD, 10/23/2021 9:21 AM Sanjeev Montez DO CT Final Re sult documented in this encounter Visit Diagnoses Diagnosis 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HHS/HCC) Cerebral aneurysm, nonruptured documented in this encounter Administered Medications Inactive Administered Medications - up to 3 most recent administrations Medication Order MAR Action Action Date Dose Rate Site iopamidol (ISOVUE-370) 76 % injection 80 mL 80 mL, Intravenous, IMG once as needed, Contrast, 1 dose, Starting on Thu10/22/21 at 1320, Until Thu10/22/21 at 1320 Given 10/22/2021 1:20 PM CDT 80 mLs documented in this encounter Additional Health Concerns Assessment Noted Time PHQ-9 Depression Total Score: 0 05/25/19 9:23 AM CDT documented as of this encounter Care Teams Vp Communications Relationship Specialty Start Date End Date Sanjeev Montez DO [address] [place] [address] PCP - General FAMILY PRACTICE 09/25/20 Dianne Johnson, RN [address] [place] [address] Newspaper Reporter (Ambulatory) REGISTERED NURSE 08/14/20 documented as of this encounter
--- OUTSIDE RECORDS SUMMARY | 2024-03-15 01:05 | XMS_ITS | Encounter Summary ---
Author Organization [facility] Address [address] [place] [address]. [place] [address] [place] [address] Care Team Providers Care Superannuation Funds Manager Name Role Phone Dianne Johnson RN Unavailable [phone] Sanjeev Webster DO Primary Care Provider + Encounter Details Date Type Department Care Team (Latest Contact Info) Description 10/22/2021 Scan HEALTH INFO SRVCS Scanned, Documents Social [...] st Contact Info) Description 04/14/2024 2:00 PM NUCLEAR POWERPLANT MECHANIC HELPER Office Visit [facility] Multispecialty Care - [address], [address] [place] [address] Julio Pulido MD [address] [place] [phone] documented as of this encounter Goals Goal Patient Goal Type Associated Problems Recent Progress Patient-Stated? Author Health - patient able to perform ADLs independently General On track(2023 9:49 AM CDT) Dianne Corona RN Note: 12/17/23: Patient stated she is independent with ASL's. Establish Plan for Symptom Monitoring-CHF General On track(2023 11:36 AM NUCLEAR POWERPLANT MECHANIC HELPER) Dianne Corona RN Note: Patient will [...] Symptom Monitoring-COPD General On track(2023 11:36 AM NUCLEAR POWERPLANT MECHANIC HELPER) Dianne Corona RN Note: Patient will [...] Symptom Monitoring-DM General On track(2023 4:33 PM NUCLEAR POWERPLANT MECHANIC HELPER) Dianne Corona RN Note: Patient will [...] Symptom Monitoring-HTN General On track(2023 4:33 PM NUCLEAR POWERPLANT MECHANIC HELPER) No Dianne Johnson RN Note: Patient will [...] documented as of this encounter Care Teams Superannuation Funds Manager Relationship Specialty Start Date End Date Sanjeev Webster DO [address] [place] [phone] PCP - General FAMILY PRACTICE 09/25/20 Dianne Johnson, RN [address] [place] [phone] Florist'S Decorator (Ambulatory) REGISTERED NURSE 08/14/20 documented as of this encounter
--- OUTSIDE RECORDS SUMMARY | 2024-03-15 01:05 | XMS_ITS | Encounter Summary ---
Author Organization [facility] Address [facility] [facility] [place] [address] [place] [address] Care Team Providers Care Joint Runner Name Role Phone Dianne Johnson RN Unavailable [phone] Sanjeev Webster DO Primary Care Provider + Reason for Visit * Reason Onset Date Comments Hospital Follow Up 10/23/2021 Admission not ification Encounter Details Date Type Department Care Team (Late st Contact Info) Description 10/23/[address] [facility] Family & Internal Medicine [address] [address] Dianne Johnson, RN [address] [place] [address] Hospital Follow Up (Admission notification) Social History Tobacco Use Types Packs/Day Years [...] Progress Notes * Dianne Johnson RN - 10/23/2021 7:05 AM CDT Admitted to [facility] from ED on 10/22/21 for increased weakness. Care coordination team will complete TCMcall back when D/C. Thank you. documented in this encounter Plan of Treatment Upcoming Encounters Date Type Department Care Team (Late st Contact Info) Description 04/14/2024 2:00 PM GUT CARRIER Office Visit [facility] Multispecialty Care - [facility] [address] [facility], [address] [place] [address] Julio Pulido MD [address] [place] [phone] documented as of this encounter Goals Goal Patient Goal Type Associated Problems Recent Progress Patient-Stated? Author Health - patient able to perform ADLs independently General On track(2023 9:49 AM CDT) Dianne Corona RN Note: 12/17/23: Patient stated she is independent with ASL's. Establish Plan for Symptom Monitoring-CHF General On track(2023 11:36 AM GUT CARRIER) Dianne Corona RN Note: Patient will [...] Symptom Monitoring-COPD General On track(2023 11:36 AM GUT CARRIER) Dianne Corona RN Note: Patient will [...] Symptom Monitoring-DM General On track(2023 4:33 PM GUT CARRIER) Dianne Corona RN Note: Patient will [...] Symptom Monitoring-HTN General On track(2023 4:33 PM GUT CARRIER) No Dianne Johnson RN Note: Patient will [...] documented as of this encounter Care Teams Joint Runner Relationship Specialty Start Date End Date Sanjeev Webster DO [address] [place] [phone] PCP - General FAMILY PRACTICE 09/25/20 Dianne Johnson, RN [address] [place] [id number] Assembly Line Machine Operator (Ambulatory) REGISTERED NURSE 08/14/20 documented as of this encounter
--- OUTSIDE RECORDS SUMMARY | 2024-03-15 01:05 | XMS_ITS | Encounter Summary ---
Author Organization [facility] Address [address] [place] [address]. [place] [address] [place] [address] Care Team Providers Care Ammunition And Explosives Handler Name Role Phone Dianne Johnson RN Unavailable [phone] Sanjeev Webster DO Primary Care Provider + Encounter Details Date Type Department Care Team (Latest Contact Info) Description 10/15/2021 Travel Social History Tobacco Use Types Packs/Day [...] documented as of this encounter Functional Status documented as of this encounter Mental Status * Question Answer Entry Date Author Status Because of a physical, mental, or emotional condition, do you have serious difficulty concentrating, remembering, or making decisions? No 10/15/2021 8:42 PM CDT Lakeisha Haas RN Active documented in this encounter Plan of Treatment Upcoming Encounters Date Type Department Care Team (Late st Contact Info) Description 04/14/2024 2:00 PM GRAIN SHOVELER Office Visit [facility] Multispecialty Care - [facility] [address] [facility], [address] [place] [address] Julio Pulido MD [address] [place] [address] documented as of this encounter Goals Goal Patient Goal Type Associated Problems Recent Progress Patient-Stated? Author Health - patient able to perform ADLs independently General On track(2023 9:49 AM CDT) Dianne Corona RN Note: 12/17/23: Patient stated she is independent with ASL's. Establish Plan for Symptom Monitoring-CHF General On track(2023 11:36 AM GRAIN SHOVELER) Dianne Corona, RN Note: Patient will recognize [...] Monitoring-COPD General On track(2023 11:36 AM GRAIN SHOVELER) Dianne Corona, RN Note: Patient will recognize [...] Monitoring-DM General On track(2023 4:33 PM GRAIN SHOVELER) Dianne Corona RN Note: Patient will manage [...] Monitoring-HTN General On track(2023 4:33 PM GRAIN SHOVELER) Dianne Corona, RN Note: Patient will monitor [...] documented as of this encounter Care Teams Ammunition And Explosives Handler Relationship Specialty Start Date End Date Sanjeev Webster DO [address] [place] [phone] PCP - General FAMILY PRACTICE 09/25/20 Dianne Johnson, RN [address] [place] [address] Developer Analyst (Ambulatory) REGISTERED NURSE 08/14/20 documented as of this encounter
--- OUTSIDE RECORDS SUMMARY | 2024-03-15 01:05 | XMS_ITS | Encounter Summary ---
Author Organization [facility] Address [facility] [place] [address] [place] [address] Care Team Providers Care Back End Engineer Name Role Phone Dianne Johnson RN Unavailable [phone] Sanjeev Webster DO Primary Care Provider + Reason for Referral * (Routine) - Canceled Specialty Diagnoses / Procedures Referred By Contac t Referred To Contact Procedures PT eval and treat Zoey Ricks NP-C [address] [address] Phone: tel: fax: Referral ID Status Reason Start Date Expiration Date V isits Requested Visits Authorized [id number] Canceled 10/18/2021 10/18/2022 1 1 * Imaging (Urgent) - Closed Specialty Diagnoses / Procedures Referred By Contivett t Referred To Contact RADIOLOGY Procedures USE ECHOCARDIOGRAM W CON Zoey Ricks NP-C [address] [address] Phone: tel: fax: Referral ID Status Reason Start Date Expiration Date Visits Re quested Visits Authorized [id number] Closed 10/16/2021 10/16/2022 1 1 * Imaging (Urgent) - Closed Specialty Diagnoses / Procedures Referred By Contac t Referred To Contact RADIOLOGY Procedures CTA CHEST Mary Higgins MD [address] [place] [address] Phone: tel: fax: Referral ID Status Reason Start Date Expiration Date Visits Re quested Visits Authorized [id number] Closed 10/15/2021 10/15/2022 1 1 * Imaging (Emergency) - Closed Specialty Diagnoses / Procedures Referred By Ian t Referred To Contact RADIOLOGY Procedures USV NEGRITA DUPLEX LOW EXT RT Mary Higgins MD [address] [place] [address] Phone: tel: fax: Referral ID Status Reason Start Date Expiration Date Visits Re quested Visits Authorized [id number] Closed 10/15/2021 10/15/2022 1 1 Reason for Visit * Reason Comments Chest Pain * Auth/Cert Specialty Diagnoses / Procedures Referred By Ian malagon Referred To Contact Diagnoses Chest pain Dyspnea on exertion Chest pain Procedures NONE NONE Gunner Torres MD [address] [place] [address] Phone: tel: [phone] fax: Referral ID Status Reason Start Date Expiration Date Visits Re quested Visits Authorized [id number] 1 1 Encounter Details Date Type Department Care Team (Latest Contact Info) Description 10/15/2021 1:02 PM CDT - 10/21/2021 2:47 PM CDT Hospital Encounter [facility] [place], [place] [address] Mary Higgins MD [address] [place], [place] [address] Gunner Torres MD [address] [place] [address] [phone] (Work) Jonathan Rolle MD [address] [facility] [place] [address] [phone] (Work) Chest Pain Discharge Disposition: Home or Self Care (Routine [...] Sign Reading Time Taken Comments Blood Pressure 114/61 10/21/2021 11:25 AM CDT Pulse 81 10/21/2021 12:29 PM CDT Temperature 36.4 ??C (97.5 ??F) 10/21/2021 1 1:25 AM CDT Respiratory Rate 19 10/21/2021 12:2 9 PM CDT Oxygen Saturation 95% 10/21/2021 12: 29 PM CDT Inhaled Oxygen Concentration - - Weight 84.1 kg (185 lb 6.4 oz) 10/20/2021 5:28 AM CDT actual standing weight Height 162.6 cm (5' 4 ) 10/15/2021 1:13 PM CDT Body Mass Index 31.82 10/15/2021 1:13 PM CDT documented in this encounter Functional Status * Question Answer Date of Assessment Author Status Do you have serious difficulty walking or climbing stairs? Yes 10/15/2021 8:42 PM Lakeisha Chiu RN Active * Question Answer Date of Assessment Author Status Do you have difficulty dressing or bathing? No 10/15/2021 8:42 PM Florentin Chiu RN Active Because of a physical, mental, or emotional condition, do you have difficulty doing errands alone such as visiting a doctor's office or shopping? No 10/15/2021 8:42 PM Lakeisha Chiu RN Active * RETIRED Are you deaf or do you have serious difficulty hearing Answer Date of Assessment Author Status No 10/15/2021 8:42 PM BK Activ e * RETIRED Are you blind or do you have serious difficulty seeing, even when wearing glasses? Answer Date of Assessment Author Status No 10/15/2021 8:42 PM BK Activ e * Do you have serious [...] or making decisions? No 10/15/2021 8:42 PM Lakeisha Chiu RN Active * Because of a physical, mental, or emotional condition, do you have serious difficulty concentrating, remembering, or making decisions? Answer Entry Date Author Status No 10/15/2021 8:42 PM Lakeisha Chiu RN Active documented in this encounter Discharge Summaries * Jonathan Rolle MD - 10/21/2021 7:56 AM CDT Images from the original note were not included. Hospitalist Discharge Summary Patient ID: Ana Maria Bobo. female. 1945. Admit date: 10/15/2021 1:02 PM Discharge date: 10/22/21 Admitting Physician: Gunner Vargas MD Primary Care Physician: Sanjeev Webster, Discharge Physician: JONATHAN ROLLE MD Primary Diagnoses: Chest pain pneumonia Admission Condition: fair Discharged Condition: Stable Code Status: Full Chief Complaint: Chief Complaint Patient presents with ??? Chest Pain Readmission/Mortality Score at discharge: Low 0-28, Medium 29-58, High >59 LACE+ Score *This score is based on incomplete data Readmission Score: 65* Male Patient: - Urgent Admission: 15 Discharge Institution: - Length of Stay: 6 Alternative Level of Care Status: 0 ED Visits in Previous 6 Months: 3 Elective Admission in Previous Year: 6 Comorbidity Score (by age & number of urgent admissions): 35 - This score is not calculated because of inadequate data Reason for hospitalization: Chest pain HPI per admitting physician: Ana Maria Bobo is a 76-year-old female with past medical history significant for atrial flutter, A-fib anticoagulated with warfarin, CAD, diabetes mellitus, HTN, HLD who presents for evaluation of chest pain. Patient states she began having sharp pain in her lower left chest 3 days ago. She says she had some heartburn and SOB with ambulation over the past couple of days. Patient notes she was sent over to the ED by her PCP, Dr. Webster. She mentions she was hospitalized at [facility] 1 week ago for the same symptoms and treated for diverticulitis. PCP's note from today reports she washaving dizziness and had been taking Augmentin since being discharged from [facility]. Her qa software tester is Dr. Paredes. Patient complains of sharp chest pain, heart burn, and SOB. Patient denies nausea, vomiting, cough, or fever. -- Dr. Bell Hospital Course: Chest pain: Initial troponin within normal limits, negative x 2 EKG without evidence of acute ischemia or infarction Stress test performed in 2019 within normal limits. Cardiology consulted Suspect 2/2 volume overload Echo with decreased EF 40-45%, mild hypokinesis Acute HFpEF now HFrEF exacerbation Cardiology consulted Check BNP- elevated 8000, suspect acute CHF IV diuresis, transitioned to oral lasix Monitor I/Os, daily weights: -5.3 L out this admission Abnormal CXR, CAP Developing opacity at the anterior left lung base may be infiltrate or atelectasis compared to prior CXR on admission. With concurrent cough, will treat CAP Will start Azithro/Rocephin and montior Wean O2 as tolerated Acute respiratory failure with hypoxia From above Up to 2L NC needed Difficulty weaning off 1L NC while sleeping May have some underlying VAZQUEZ-- to be worked up by PCP Weaned to room air by discharge A.Fib: Rate control with Toprol Stroke risk reduction with Coumadin Was previously on amiodarone, recently discontinued on 09/12/21 Telemetry Supratherapeutic INR Goal 2.5-3.5 INR 4.6 on admission Hold warfarin, then restarted Monitor for signs of bleeding Resolved, INR within goal at discharge Essential Hypertension: continue outpatient medications as indicated. ?? Hyperlipidemia: Continue statin ?? Hyperthyroidism Continue methimazole Check TSH- low, T4 4.87 ?possible side effect from amiodarone use, stopped per primary qa software tester on 09/12. F/u with PCP, may benefit from Endocrinology referral as OP Chronic kidney disease: Renal function around baseline: Renally dose medications avoid nephrotoxic medications avoid hypotension. Monitor with diuresis?? GERD: Continue PPI, Given clinical improvement, and stable vital signs patient was ready for discharge. Return precautions and therapeutic plan were discussed with patient in detail, and patient voiced understanding andagreement. All questions were answered and patient was subsequently discharged home. Specific follow-up testing/results for PCP: See above Discharge Exam: Filed Vitals: 10/21/21 0440 10/21/21 0715 10/21/21 1125 10/21/21 1229 BP: 125/78 96/40 114/61 Pulse: 97 89 93 81 Resp: 20 (!) 31 19 19 Temp: 98.1 ??F (36.7 ??C) 98.5 ??F (36.9 ??C) 97.5 ??F (36.4 ??C) TempSrc: Temporal Temporal Temporal SpO2: 93% 96% 97% 95% Weight: Height: -GENERAL: No acute distress, Well nourished -HEAD: Normocephalic, Atraumatic -EYES: Extraocular movements intact -LUNGS: Effort normal. Clear to auscultation bilaterally, No wheezes, No crackles, No rhonchi -CVS: Regular rate and rhythm, S1 and S2 normal -ABDOMEN: Soft, Non tender, Non distended -EXT: No edema -NEURO: Awake, alert, oriented, No gross neuro deficits -SKIN: No significant rashes Consults: cardiology Significant Diagnostic Studies: Recent Labs Lab 10/15/21 1320 10/16/21 0416 10/17/21 0645 10/18/21 0454 10/19/21 0950 10/20/21 1101 10/21/21 0855 WBC 5.1 4.3* 4.2* 4.7 4.6 5.1 4.0* RBC 3.05* 2.63* 2.77* 2.78* 2.89* 2.89* 2.83* HGB 9.6* 8.2* 8.9* 9.0* 9.2* 9.2* 8.7* HCT 32.0* 26.5* 29.0* 29.8* 30.4* 30.3* 29.4* MCV 104.9* 100.8* 104.7* 107.2* 105.2* 104.8* 103.9* MCH 31.5* 31.2* 32.1* 32.4* 31.8* 31.8* 30.7 MCHC 30.0* 30.9* 30.7* 30.2* 30.3* 30.4* 29.6* PLT 227 200 202 188 185 193 162 RDW 12.8 12.7 12.8 12.6 12.5 12.5 12.4 MPV 12.7* 12.7* 13.1* 12.8* 12.8* 13.1* 13.1* PERNEU 67.0 46.0 44.8 -- 53.6 63.6 49.7 PERLYM 16.3 28.8 28.0 -- 23.6 13.4 26.5 PERMON 13.9 20.4 21.8 -- 17.6 17.9 18.0 LYMC 0.83* 1.24 1.18 -- 1.09 0.68* 1.06 MONOC 0.71 0.88* 0.92* -- 0.81 0.91* 0.72 EOSC 0.09 0.16 0.18 -- 0.18 0.21 0.18 BASOC 0.04 0.04 0.04 -- 0.04 0.04 0.04 DTYPE AUTOMATED DIFFERENTIAL AUTOMATED DIFFERENTIAL AUTOMATED DIFFERENTIAL MANUAL DIFFERENTIAL AUTOMATED DIFFERENTIAL AUTOMATED DIFFERENTIAL AUTOMATED DIFFERENTIAL Recent Labs Lab 10/15/21 1320 10/16/21 0416 10/17/21 0645 10/18/21 0454 10/19/21 0950 10/20/21 1101 10/21/21 0855 NA 140 140 141 141 142 139 142 K 4.5 4.7 4.8 5.1 4.8 4.9 5.1 CL 111* 112* 112* 110* 110* 107 111* CO2 26.3 26.8 29.7 27.2 29.0 29.8 28.8 AGAP 2.7* 1.2* NOT CALCULATED 3.8* 3.0* 2.2* 2.2* BUN 22* 23* 29* 36* 44* 49* 47* CR 1.34* 1.08* 1.39* 1.44* 1.52* 1.68* 1.26* BUNCREATININ 16.4 21.3 20.9 25.0 28.9* 29.2* 37.3* GLU 222* 86 91 77 90 133* 84 CA 10.2* 9.6 10.0 9.7 9.8 9.7 9.9 TP 6.6 -- -- -- -- -- -- ALB 2.8* -- -- -- -- -- -- TBIL 0.5 -- -- -- -- -- -- ALKP 89 -- -- -- -- -- -- AST 36 -- -- -- -- -- -- ALT 40 -- -- -- -- -- -- Recent Labs Lab 10/17/21 0645 TSH <0.005* Recent Labs Lab 10/15/21 1538 10/16/21 0416 10/19/21 0950 10/20/21 1101 10/21/21 0539 INR 4.6 < > 2.9 3.3 3.3 PTT 41.5* -- -- -- -- < > = values in this interval not displayed. Recent Labs Lab 10/15/21 1320 10/15/21 1458 10/15/21 1717 TROP 25 26 24 No results for input(s): LACTICACID, PROCT in the last 168 hours. No results for input(s): PH, PCO2, PO2, [id number], BICARBWB, BASEDEFICIT, BASEEXCESS in the neuy029 hours. No results found for this or any previous visit. Radiology Reports : ULTRASOUND GENERIC Result Date: 10/03/2021 Ordered by [...] VASCULAR LAB Pat.Name: ANA MARIA BOBO Pat.ID: [id number] St.Date: 10/15/2021 Exam Time: 4:09:00 PM Study [...] 7:10 AM XR CHEST PORTABLE Result Date: 10/15/2021 Examination: [...] Echocardiography Report Pat.Name: ANA MARIA BOBO HANNA Pat.ID: [id number] St.Date: 10/16/2021 Exam Time: 3:01:00 PM Study Type:ECHO WITH CARDIAC DOPPLER COMP Height: 64in Weight: 183.62lb BSA: 1.89 m2 Age: 3 1945,76Y Sex: FEMALE BP: 115/57 HR: 91 bpm Sonogrphr: Becky Martel [facility] Pat. Stat. :Inpatient Room: [facility] Reason for Study: Aortic valve replacement, Congestive [...] 26.3 cm Right Atrium RA Press 15mmHg Paulino's Disk 20 AV Forward Flow AV TVI [...] mm Right Ventricle 32 .8 mm Major Barto 77.7 mm Signed 10/16/2021 06:42 PM Tere Robbins M.D. Discharge Medications: Medication List START taking these medications Morning Afternoon Evening Bedtime As Needed cefdinir 300 MG Caps capsule Commonly known as: OMNICEF Take 1 capsule (300 mg total) by mouth 2 (two) times daily for 4 days. CHANGE how you take these medications Morning Afternoon Evening Bedtime As Needed furosemide 40 MG tablet Commonly known as: LASIX Take 1 tablet (40 mg total) by mouth daily for 30 days. Last time this was given: 40 mg on October 21, 2021 8:52 AM What changed: ?? medication strength ?? how much to take ?? how to take this ?? when to take this ?? additional instructions CONTINUE taking these medications Morning Afternoon Evening Bedtime As Needed acetaminophen 500 MG tablet Commonly known as: TYLENOL Take 500 mg by mouth daily as needed. Last time this was given: 650 mg on October 17, 2021 9:35 PM albuterol sulfate HFA 108 (90 Base) MCG/ACT inhaler Inhale 2 puffs into the lungs every 6 (six) hours as needed for Wheezing. ALPRAZolam 0.25 MG tablet Commonly known as: XANAX Take 1 tablet (0.25 mg total) by mouth 2 (two) times daily as needed for Anxiety. Last time this was given: 0.25 mg on October 20, 2021 8:50 PM FeroSul 325 (65 FE) MG tablet Take [...] time this was given: 300 mg on October 21, 2021 8:52 AM HYDROcodone-acetaminophen 10-325 MG tablet Commonly known as: NORCO Take 1 tablet by mouth every 6 (six) hours as needed for Pain. Indications: Chronic Pain Do not take with alprazolam. No further refills until seen in office. Last time this was given: 1 tablet on October 21, 2021 2:26 PM lidocaine 5 % Commonly known as: LIDODERM Apply pain patch to affected area. Change after 12 hours. Last time this was given: Ask your nurse or doctor lisinopril 40 MG tablet Commonly known as: PRINIVIL Take 1 tablet by mouth once daily Last time this was given: 40 mg on October 21, 2021 8:52 AM methIMAzole 5 MG tablet Commonly known as: TAPAZOLE Take 1 tablet (5 mg total) by mouth daily. Last time this was given: 5 mg on October 21, 2021 8:52 AM metoprolol succinate ER 25 MG 24 hr tablet Commonly known as: TOPROL-XL Take 1 tablet (25 mg total) by mouth daily. Last time this was given: 25 mg on October 21, 2021 8:52 AM omeprazole 20 MG capsule Commonly known as: PriLOSEC Take 1 capsule by mouth once daily rosuvastatin 5 MG tablet Commonly known as: CRESTOR Take 1 tablet (5 mg total) by mouth nightly at bedtime. venlafaxine XR 150 MG 24 hr capsule Commonly known as: EFFEXOR-XR Take 1 capsule by mouth once daily Last time this was given: 150 mg on October 21, 2021 8:52 AM Vitamin D3 25 MCG (1000 UT) Caps Take 1,000 Units by mouth daily. warfarin 5 MG tablet Commonly known as: COUMADIN Take 5 mg by mouth daily. Last time this was given: 2 mg on October 20, 2021 4:54 PM Disposition: Home with self care Patient Instructions: Follow-up appointments: PCP, Cardiology Time Spent on Discharge: Greater than 30 minutes Signed: JONATHAN ROLLE MD ?? documented in this encounter Discharge Instructions * Attachments The following attachments cannot be sent through Care Everywhere. * Shortness of Breath (Dyspnea) Discharge Instructions (Prydeinig) documented in this encounter Medications at Time [...] hronic obstructive pulmonary disease, unspecified COPD type ([facility]) Inhale 2 puffs into the lungs every [...] by Nasal route daily. 3 furosemide (LASIX) 40 MG tablet Take 1 [...] after 12 hours. 6 patch 08/30/2020 3 LISINOPRIL 40 MG tabletIndications:Hy pertensive urgency Take [...] mouth daily. 30 tablet 1 09/02/2021 2 omeprazole (PRILOSEC) 20 MG capsuleIndications:G ERD (gastroesophageal [...] as of this encounter Progress Notes * Jettfrancesca Roper PharmD - 10/21/2021 1:40 PM CDT Warfarin Pharmacy to Dose- Day # 6 Ordered by HAI Dailey Indication: Hx mechanical aortic valve + A-fib Goal INR: 2.5-3.5 Home regimen: 5 mg Date H/H/plt INR Dose 10/16 9.6/32/227 4.3 held 10/17 8.9//202 2.9 5 mg 10/18 9/29.8/188 2.5 5 mg 10/19 9.2/30.4/185 2.9 4 mg 10/20 9.2/30.3/193 3.3 2 mg 10/21 8.7/29.4/162 3.3 Interacting medications: Methimazole - Decrease INR (Home med) Venlafaxine - Increase risk of bleed (Home med) Azithromycin - Increase INR and bleed risk (started 10/19) Ceftriaxone - Increase INR and bleed risk (started 10/19) Diet: Diet cardiac Appropriate: no documentation of PO over the past 24hrs A/P: 76 y.o.female presented to [facility] with chest pain. PMHx of a-flutter, a-fib, CAD, DM, HTN, HLD. Pt waspreviously hospitalized at [facility] 1 week ago for similar symptoms. Pt has been on 5 mg home regimen, but was increased to 6 mg during admission. Patient's last INR was 3.3 and 2 mg was given. Expect to see increases in INR 2-3 days after administration of current antibiotics. Methimazole likely has little to no effect on INR, unless discontinued, as it was home med that has been continued inpatient. INR came back today at 3.3, remaining in goal range. Will give warfarin 3 mg today, noting interacting antibiotics increasing warfarin sensitivity. Will continue to follow daily INR while admitted. Thank you for the consult * JEREMY Rueda - 10/21/2021 1:37 PM CDT CM Final Discharge Note 10/21/21 7597 Discharge Planning Living Arrangements Family Members Support Systems Family Members Type of Residence Private residence Assistance/Services Needed No IV Infusion at discharge No Patient expects to be discharged to: Home DME Needed at Discharge No Discharge Planning Who is requesting discharge planning? Provider Patient determined medically stable to discharge today. JEREMY contacted [facility] and spoke with Ku - advised of patient discharge. JEREMY faxed discharge instructions to agency. No additional concerns for discharge. * Lora Brooks V - 10/21/2021 11:50 AM CDT I delivered the Reinforcement Important Message from Medicare (Subsequent IMM) to Ana Maria Ferreira Jeramie and after explaining the form to the patient, the Patient signed the form. The Patient received acopy of the form for their records. 10/21/21 1150 Forms Reinforcement Important Message from Medicare (Subsequent IMM) Signed Copy delivered * Terrence Garrison PharmD - 10/20/2021 2:58 PM CDT Warfarin Pharmacy to Dose- Day # 5 Ordered by Zoey Ricks, JIMBO-C Indication: Hx mechanical atrial valve + A-fib Goal INR: 2.5-3.5 Home regimen: 5 mg Date H/H/plt INR Dose 10/16 9.6/32/227 4.3 held 10/17 8.9/29/202 2.9 5 mg 10/18 9/29.8/188 2.5 5 mg 10/19 9.2/30.4/185 2.9 4 mg New interacting medications: Methimazole - Decrease INR Venlafaxine - Increase risk of bleed Azithromycin - Increase INR and bleed risk Ceftriaxone - Increase INR and bleed risk Diet: Diet cardiac Appropriate: no documentation of PO over the past 24hrs A/P: 76 y.o.female presented to [facility] with chest pain. PMHx of a-flutter, a-fib, CAD, DM, HTN, HLD. Pt waspreviously hospitalized at [facility] 1 week ago for similar symptoms. Pt has been on 5 mg home regimen, but was increased to 6 mg during admission. Pt received 4 mg dose yesterday. INR has increased to 3.3, but still within goal. With significant increases over the past two days in INR, will order 2 mg dose for today. Will get INR with AM labs and adjust as needed. Pharmacy will continue to monitor. Thank you for the consult Terrence Garrison PharmD * Jonathan Rolle MD - 10/20/2021 2:26 PM CDT Hospitalist Daily Progress Note Subjective Patient reports continued dyspnea on exertion slowly improving. No CP, F/C, N/V. Transitioned to PO Lasix. Still intermittently requires O2, currently on 1L NC this AM. Being treated for CAP. Objective Filed Vitals: 10/20/21 0528 10/20/21 0755 10/20/21 0800 10/20/21 0801 BP: 93/51 99/55 103/46 Pulse: 87 102 108 Resp: Temp: 97.4 ??F (36.3 ??C) TempSrc: Temporal SpO2: 99% 93% 92% Weight: 84.1 kg (185 lb 6.4 oz) Height: Intake/Output 24H Total: Intake/Output Summary (Last 24 hours) at 10/20/2021 1426 Last data filed at 10/20/2021 0528 Gross per 24 hour Intake -- Output 600 ml Net -600 ml Physical Exam: General: No acute distress, breathing comfortably on 1L NC Eyes: Extraocular movements intact ENT: Neck supple, Septum is midline. Lungs: Clear to auscultation bilaterally, No wheezes, bibasilar crackles Cardiovascular: Regular rate rhythm, S1 and S2 normal, No murmurs Abdomen: Soft, nondistended, Nontender, Bowel sounds observed Extremities: no lower extremity edema. Neurological: Alert, awake, oriented x3, No gross neuro deficit Skin: Skin color, texture, turgor normal. No rashes or lesions Medications ??? aspirin 324 mg Oral Once ??? azithromycin 500 mg Intravenous Q24H ??? cefTRIAXone 1 g Intravenous Q24H ??? furosemide 40 mg Oral Daily ??? gabapentin 300 mg Oral BID ??? lidocaine 1 patch Transdermal Q24H ??? lisinopril 40 mg Oral Daily ??? methIMAzole 5 mg Oral Daily ??? metoprolol succinate ER 25 mg Oral Daily ??? pantoprazole EC 20 mg Oral Daily ??? venlafaxine XR 150 mg Oral Daily ??? warfarin (COUMADIN) pharmacy to dose Oral See Admin Instructions acetaminophen, ALPRAZolam, calcium carbonate, HYDROcodone-acetaminophen, nzfnmngbw-xpjxzbla-smyylirzala, ondansetron, polyethylene glycol Labs, Imaging, Other Studies Recent Labs Lab 10/15/21 1320 10/16/21 0416 10/17/21 0645 10/18/21 0454 10/19/21 0950 10/20/21 1101 WBC 5.1 4.3* 4.2* 4.7 4.6 5.1 RBC 3.05* 2.63* 2.77* 2.78* 2.89* 2.89* HGB 9.6* 8.2* 8.9* 9.0* 9.2* 9.2* HCT 32.0* 26.5* 29.0* 29.8* 30.4* 30.3* MCV 104.9* 100.8* 104.7* 107.2* 105.2* 104.8* MCH 31.5* 31.2* 32.1* 32.4* 31.8* 31.8* MCHC 30.0* 30.9* 30.7* 30.2* 30.3* 30.4* PLT 227 200 202 188 185 193 RDW 12.8 12.7 12.8 12.6 12.5 12.5 MPV 12.7* 12.7* 13.1* 12.8* 12.8* 13.1* PERNEU 67.0 46.0 44.8 -- 53.6 63.6 PERLYM 16.3 28.8 28.0 -- 23.6 13.4 PERMON 13.9 20.4 21.8 -- 17.6 17.9 LYMC 0.83* 1.24 1.18 -- 1.09 0.68* MONOC 0.71 0.88* 0.92* -- 0.81 0.91* EOSC 0.09 0.16 0.18 -- 0.18 0.21 BASOC 0.04 0.04 0.04 -- 0.04 0.04 DTYPE AUTOMATED DIFFERENTIAL AUTOMATED DIFFERENTIAL AUTOMATED DIFFERENTIAL MANUAL DIFFERENTIAL AUTOMATED DIFFERENTIAL AUTOMATED DIFFERENTIAL Recent Labs Lab 10/15/21 1320 10/16/21 0416 10/17/21 0645 10/18/21 0454 10/19/21 0950 10/20/21 1101 NA 140 140 141 141 142 139 K 4.5 4.7 4.8 5.1 4.8 4.9 CL 111* 112* 112* 110* 110* 107 CO2 26.3 26.8 29.7 27.2 29.0 29.8 AGAP 2.7* 1.2* NOT CALCULATED 3.8* 3.0* 2.2* BUN 22* 23* 29* 36* 44* 49* CR 1.34* 1.08* 1.39* 1.44* 1.52* 1.68* BUNCREATININ 16.4 21.3 20.9 25.0 28.9* 29.2* GLU 222* 86 91 77 90 133* CA 10.2* 9.6 10.0 9.7 9.8 9.7 TP 6.6 -- -- -- -- -- ALB 2.8* -- -- -- -- -- TBIL 0.5 -- -- -- -- -- ALKP 89 -- -- -- -- -- AST 36 -- -- -- -- -- ALT 40 -- -- -- -- -- Recent Labs Lab 10/17/21 0645 TSH <0.005* Recent Labs Lab 10/15/21 1538 10/16/21 0416 10/18/21 0454 10/19/21 0950 10/20/21 1101 INR 4.6 < > 2.5 2.9 3.3 PTT 41.5* -- -- -- -- < > = values in this interval not displayed. Recent Labs Lab 10/15/21 1320 10/15/21 1458 10/15/21 1717 TROP 25 26 24 No results for input(s): LACTICACID, PROCT in the last 168 hours. No results for input(s): PH, PCO2, PO2, [id number], BICARBWB, BASEDEFICIT, BASEEXCESS in the [id number] hours. No results found for this or any previous visit. Imaging ULTRASOUND GENERIC Result Date: 10/03/2021 Ordered by an unspecified provider. IMAGE GENERIC Result Date: 10/02/2021 Ordered by an unspecified provider. CT GENERIC Result Date: 10/03/2021 Ordered by an unspecified provider. CT ABD+PEL W CON Result Date: 09/17/2021 Examination: CT abdomen and pelvis with IV contrast. Clinical Information: Right upper quadrant pain. Comparison:No comparison. Technique: IV contrast: 100 mL Isovue 370. Oral contrast: None. Technical comments: Standard technique. Dose reduction: This CT exam was performed using one or more of thefollowing dose reduction techniques: Automated exposure control, adjustment of the mA and/or kV according to patient size, and/or use of iterative reconstruction technique. Findings: LOWER CHEST Heart is mildly enlarged. Lung bases are clear. No pleural or pericardial effusions. UPPER ABDOMEN Liverand bile ducts: Normal in size and contour. Nonspecific focal calcifications identified involving the lateral right capsular surface, possibly from previous injury or a granulomatous process. Portal vein and hepatic veins are patent. No biliary dilatation. Gallbladder: No gallstones or evidence of cholecystitis. There is an abnormal region of wall thickening involving the gallbladder fundus measuring 1.5 cm (series 2 image 49). This appears to enhance and is overall nonspecific but cannot exclude malignancy. Pancreas: Normal. Spleen: Normal. RETROPERITONEUM Adrenals: Normal. Kidneys: Enhance symmetrically with no solid mass or hydronephrosis. Bilateral renal cysts. Tiny nonobstructing rightrenal stone. Lymph nodes: No lymphadenopathy in the abdomen or pelvis. BOWEL AND PERITONEUM Bowel: No bowel obstruction. The appendix is unremarkable. Diffuse colonic diverticulosis. There is wall thickening of the mid sigmoid colon with adjacent hazy fat stranding, raising concern for mild acute diverticulitis. No perforation or abscess identified. Free air or fluid: None. VASCULATURE Atherosclerotic calcification of the abdominal aorta and its branches without aneurysm. Anatomic variant of the celiac artery and SMA demonstrating a common origin consistent with celiacomesenteric trunk. Thereappears to be mild to moderate stenosis of the origin related to these calcifications. PELVIS No abnormality. BONES/SOFT TISSUES Mild to moderate multilevel spondylosis. No acute osseous abnormality is identified. Impression: 1. Focal wall thickening of the gallbladder fundus measuring 1.5 cm with findings suggestive of enhancement. This is of uncertain etiology and may represent extensive adenomyomatosis but cannot definitively exclude a gallbladder malignancy. Could further correlate with ultrasound. No gallstones or distinct findings of cholecystitis. 2. Small bilateral renal cysts. Tiny nonobstructing right renal stone. 3. Diffuse colonic diverticulosis. Wall thickening and inflammatory changes of the mid sigmoid colon suggestive of acute diverticulitis. No perforation or abscess. 4. 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 There is notable atherosclerotic calcification of the origin of this trunk resulting in mild to moderate stenosis. Ordered By: THANH GARZA Interpreted By: Dov Bryson MD, 09/17/2021 10:28 PM CTA CHEST Result Date: 10/15/2021 Examination: CTA [...] NEGRITA DUPLEX LOW EXT RT Result Date: 10/15/2021 VENOUS DUPLEX IMAGING RIGHT LOWER EXTREMITY VASCULAR LAB Pat.Name: ANA MARIA BOBO Pat.ID: [id number] .Date: 10/15/2021 Exam Time: 4:09:00 PM Study Type:TOYA VS Venous Duplex Leg Rt Age: 3 1945,76Y Sex: FEMALE Sonogrphr: Diana Bronson RVT Pat. Stat.:Outpatient Room: ER History / Clinical: Chest pain. Calf injury, redness, edema. PMH: cad, dm, htn, ckd, hld, copd Procedures: [...] detected in the common femoral vein. CONCLUSION: ++++++++++++++++++++++++++++++++++++ FINDINGS: +++++++++++++++++++ +++++++++++++++++ Unsigned José Kaiser M.D. XR CHEST PORTABLE Result Date: 10/15/2021 Examination: [...] By: Estevan Martines MD, 10/15/2021 1:33 PM EKG: Results for orders placed or performed during the hospital encounter of 10/15/21 ECG 12 lead Narrative [place] [place] [facility] Test Date: 2021-10-15 Pat Name: ANA MARIA BOBO Department: 41 Room: C04 Gender: Female Stock Feeder: [facility] : 1945 Requested By: CARRIE CALHOUN Order Number: [id number] Reading MD: Gael Hart Measurements Intervals Barto Rate: 108 P: MO: 0 QRS: -40 QRSD: 137 T: 115 QT: 349 QTc: 468 Interpretive Statements ATRIAL FIBRILLATION WITH RAPID VENTRICULAR RESPONSE LEFT AXIS DEVIATION LEFT BUNDLE BRANCH BLOCK Compared to ECG 09/17/2021 20:23:49 Left-axis deviation now present Sinus rhythm no longer present ECG 12 lead Narrative [place] [place] [facility] Test Date: 2021-10-15 Pat Name: ANA MARIADOC BOBO Department: 41 Room: C04 Gender: Female Stock Feeder: : 1945 Requested By: CARRIE CALHOUN Order Number: [id number] Reading MD: Gael Hart Measurements Intervals Barto Rate: 71 P: MO: 0 QRS: -28 QRSD: 145 T: 120 QT: 398 QTc: 434 Interpretive Statements ATRIAL FIBRILLATION LEFT BUNDLE BRANCH BLOCK Compared to ECG 10/15/2021 13:07:12 Left-axis deviation no longer present ECG 12 lead Narrative [place] [place] [facility] Test Date: 2021-10-15 Pat Name: ANA MARIADOC BOBO Department: 41 Room: C04 Gender: Female Stock Feeder: : 1945 Requested By: CARRIE CALHOUN Order Number: [id number] Reading MD: Gael Hart Measurements Intervals Barto Rate: 83 P: MO: 0 QRS: -27 QRSD: 145 T: 85 QT: 381 QTc: 448 Interpretive Statements ATRIAL FIBRILLATION LEFT BUNDLE BRANCH BLOCK Compared to ECG 10/15/2021 15:06:38 No significant changes Assessment & Plan Chest pain: Initial troponin within normal limits, negative x 2 EKG without evidence of acute ischemia or infarction Telemetry Stress test performed stress testing performed in 2019 within normal limits. Cardiology consulted Suspect 2/2 volume overload Echo with decreased EF 40-45%, mild hypokinesis Acute HFpEF now HFrEF exacerbation Cardiology consulted Check BNP- elevated 8000 IV diuresis, now daily from BID Monitor I/Os, daily weights Abnormal CXR, concern for CAP Developing opacity at the anterior left lung base may be infiltrate or atelectasis compared to prior CXR on admission. With concurrent cough, will treat CAP Will start Azithro/Rocephin and montior Wean O2 as tolerated A.Fib: Rate control with Toprol Stroke risk reduction with Coumadin currently holding Was previously on amiodarone, recently discontinued on 09/12/21 Telemetry Supratherapeutic INR INR 4.6 on admission Hold warfarin Check daily INR Restart when able Monitor for signs of bleeding Resolved Essential Hypertension: continue outpatient medications as indicated. ?? Hyperlipidemia: Continue statin ?? Hyperthyroidism Continue methimazole Check TSH- low, T4 4.87 ?possible side effect from amiodarone use, stopped per primary qa software tester on 09/12. F/u with PCP, may benefit from Endocrinology referral as OP Chronic kidney disease: Renal function around baseline: Renally dose medications avoid nephrotoxic medications avoid hypotension. Monitor with diuresis?? GERD: Continue PPI, ?? - DVT prophylaxis: Warfarin, SCDs - Diet/IVF: Cardiac - Code status: Full code - Disposition: Telemetry labs Other changes to plan of care to be made based on progress during hospitalization. 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 They are agreeable with plan and voiced understanding. JONATHAN ROLLE MD 10/20/2021 2:26 PM This note was dictated with [employer] medical dictation software; misspellings, punctuation errors, omitted words or dictation variances may occur. * Chelsea Hernandezsudeep, ANP-BC - 10/20/2021 8:10 AM CDT CARDIOLOGY PROGRESS NOTE PRIMARY [employer]: Dr. Robbins @ [facility], Dr. Paredes as outpatient Seeing in follow up today with Dr. Sellers CHIEF COMPLAINT Cardiology follow up for chest pain INTERVAL HISTORY No further chest pain Reports cough with white sputum production. ASSESSMENT Chest pain No further episodes in the last 24 hours. No elevation of troponin, suspect chest pain is related to fluid volume overload History of catheterization in 2001 with nonobstructive disease Lung infiltrate Left lower lobe infiltrate noted on x-ray 10/18 Oxygen weaned to 1 lpm Per primary team Heart failure with reduced ejection fraction Lungs are clear, no edema. Echo: EF dropped to 40-45%. Global hypokinesis, moderate MR. Trace periprosthetic aortic regurg. Weight: 83 kg on admission, 84 kg yesterday I/O: incomplete Diuretics: Furosemide 40mg IVP QD. Transition to oral Lasix on 10/19. Medical therapy: ACEI, BB Atrial fibrillation-persistent Rate around 100 bpm, currently on low dose beta lexy. Will not uptitrate due to hypotension withSBP in 90's Previously failed sotalol and amiodarone. Anticoagulation with warfarin History of mechanical AVR Anticoagulation with warfarin RECOMMENDATIONS/PLAN Continue current cardiac meds. Past Medical History: Diagnosis Date ??? 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 Anxiety ??? Atrial flutter (CMS/HCC) ??? Cataract ??? Chronic anticoagulation due to mechanical heart valve ??? Chronic pain ??? Diabetes mellitus (CMS/HCC) ??? H/O mechanical aortic valve replacement 2003 ??? Hypertension CURRENT HOSPITAL ADMINISTERED MEDICATIONS ??? aspirin 324 mg Oral Once ??? azithromycin 500 mg Intravenous Q24H ??? cefTRIAXone 1 g Intravenous Q24H ??? furosemide 40 mg Oral Daily ??? gabapentin 300 mg Oral BID ??? lidocaine 1 patch Transdermal Q24H ??? lisinopril 40 mg Oral Daily ??? methIMAzole 5 mg Oral Daily ??? metoprolol succinate ER 25 mg Oral Daily ??? pantoprazole EC 20 [...] comment) ??? Polymyxin B Other (see comment) OBJECTIVE TELEMETRY: Afib 101 bpm Filed Vitals: 10/20/21 0528 10/20/21 0755 10/20/21 0800 10/20/21 0801 BP: 93/51 99/55 103/46 Pulse: 87 102 108 Resp: Temp: 97.4 ??F (36.3 ??C) TempSrc: Temporal SpO2: 99% 93% 92% Weight: 84.1 kg (185 lb 6.4 oz) Height: Last 5 Recorded Weights 10/15/21 1313 10/18/21 0435 10/20/21 0511 10/20/21 0528 Weight: 83.5 kg (184 lb) 64 kg (141 lb 1.6 oz) 84.1 kg (185 lb 6.4 oz) 84.1 kg (185 lb 6.4 oz) Intake/Output Summary (Last 24 hours) at 10/20/2021 0810 Last data filed at 10/20/2021 0528 Gross per 24 hour Intake -- Output 600 ml Net -600 ml Cardiac Exam Rate/Rhythm: An irregularly irregular rhythm present. Tachycardia present. PMI: Pulses: Intact distal pulses. Carotid pulses are 2+ on the right side and 2+ on the left side. Dorsalis pedis pulses are 2+ on the right side and 2+ on the left side. Heart Sounds: Normal heart sounds. No gallop present. Murmurs: No murmur present Negative for edema. Physical Exam Constitutional: No distress. Healthy Appearance. HENT: Eyes: Conjunctivae normal. Neck: Normal range of motion. No JVD. Abdomen: Abdomen soft. Bowel sounds normal. No distension. No tenderness. No abdominal bruit present. Pulmonary: Effort normal. Breath sounds normal. No chest wall tenderness. Skin: Dry. Warm. No rash. No pallor. No jaundice. No cyanosis. No clubbing. No xanthoma. Musculoskeletal: No tenderness. No kyphosis. Normal ROM. Neurological: Alert. Oriented x 3. Appropriate mood and affect. Comments: LABORATORY DATA Recent Labs Lab 10/17/2164410/18/2145310/19/21 0950 WBC 4.2* 4.7 4.6 RBC 2.77* 2.78* 2.89* HGB 8.9* 9.0* 9.2* HCT 29.0* 29.8* 30.4* MCV 104.7* 107.2* 105.2* MCH 32.1* 32.4* 31.8* MCHC 30.7* 30.2* 30.3* PLT 202 188 185 Recent Labs Lab 10/17/2164410/18/2145310/19/21 0950 NA 141 141 142 K 4.8 5.1 4.8 CL 112* 110* 110* CO2 29.7 27.2 29.0 BUN 29* 36* 44* CR 1.39* 1.44* 1.52* GLU 91 77 90 BUNCREATININ 20.9 25.0 28.9* estimated creatinine clearance is 32.5 mL/min (A) (based on SCr of 1.52 mg/dL (H)). Recent Labs Lab 10/16/2141510/17/2164410/18/2145310/19/21 0950 MAGNESIUM 1.6* -- -- -- CA 9.6 10.0 9.7 9.8 Recent Labs Lab 10/15/21 1320 TP 6.6 ALB 2.8* TBIL 0.5 ALKP 89 AST 36 ALT 40 Recent Labs Lab 10/15/21 1538 10/16/2141510/17/2145 10/18/21 0454 10/19/21 0950 INR 4.6 < > 2.9 2.5 2.9 PTT 41.5* -- -- -- -- < > = values in this interval not displayed. Lab Results Component Value Date CHOL 200 (H) 08/29/2021 TRI 108 08/29/2021 HDL 71 08/29/2021 HGBA1C 6.1 08/29/2021 TSH <0.005 (L) 10/17/2021 Recent Labs Lab 10/15/21 1320 10/15/21 1458 10/15/21 1717 TROP 25 26 24 IMAGING Radiology Results (Last 30 days) 10/19/21 0708 XR CHEST PA+LAT Final result [...] 1625 [facility] NEGRITA DUPLEX LOW EXT RT Preliminary result This result has not been signed. Information might be incomplete. 10/15/21 1332 XR CHEST PORTABLE Final result Impression: Impression: 1. No acute infiltrate. 2. Borderline vascular congestion. Referred By: Interpreted By: Estevan Martines MD, 10/15/2021 1:33 PM DHIRAJ RODRIGUEZ Cosigned by Trung Sellers MD at 10/20/2021 6:40 PM CDT Associated attestation - Trung Sellers MD - 10/20/2021 6:40 PM CDT I, Trung Sellers MD, performed an examination of the patient and discussed the management with the Advanced Practice Provider (GERRY). I reviewed the GERRY's progress note and agree with the findings and plan of care, except as I have documented. * Terrence Garrison PharmD - 10/19/2021 6:14 PM CDT Warfarin Pharmacy to Dose- Day # 4 Ordered by RENO DaileyC Indication: Hx mechanical atrial valve + A-fib Goal INR: 2.5-3.5 Home regimen: 5 mg Date H/H/plt INR Dose 10/16 9.6/32/227 4.3 held 10/17 8.9//202 2.9 5 mg 10/18 9/29.8/188 2.5 5 mg 10/19 9.2/30.4/185 2.9 ---- New interacting medications: Methimazole - Decrease INR Venlafaxine - Increase risk of bleed Azithromycin - Increase INR and bleed risk Ceftriaxone - Increase INR and bleed risk Diet: Diet cardiac Appropriate: 50%-75% A/P: 76 y.o.female presented to [facility] with chest pain. PMHx of a-flutter, a-fib, CAD, DM, HTN, HLD. Pt waspreviously hospitalized at [place] 1 week ago for similar symptoms. Pt has been on 5 mg home regimen, but was increased to 6 mg during admission. Pt received 5 mg dose yesterday. INR has increased to 2.9, but still within goal. Will decrease to 4 mg today, due to impact of the abx start. Will order INR with AM labs tomorrow. Pharmacy will continue to monitor. Thank you for the consult Terrence Garrison PharmD * Laura Waller, NAREN - 10/19/2021 2:50 PM CDT 10/19/21 1330 Therapy Visit Ordering Provider [facility] CDU 4 PT SUPINE IN BED AND AGREED TO DO THERAPY. Reason for admission chest pain Relevant Comorbidities/ Personal Factors to PT afib, HTN, CAD, DM, HTN, HLD Verified Two Patient Identifiers Yes Patient consents to therapy Yes Acute Inpatient PT Time Calculation PT Start Time 1330 PT Stop Time 1400 PT Time Calculation (min) 30 min Precautions General Precautions Fall Risk;Monitor Vitals;Multiple lines;Bed Alarm PPE Used Face mask;Gloves Instructed on Precautions Yes;Needs reinforcement and education Skin Integrity appears intact Pain Pain Yes Pain Score Did not rate Location CHEST HURTS WITH BREATHING AT TIMES Interventions Re-positioning;Re-direction Activity Tolerance Endurance Tolerates 20 - 30 min activity with rests Endurance Quality Fair Limiting Factors to Endurance Pain;Weakness;Acute deconditioning Cognition Overall Cognitive Status WFL Bed Mobility Supine to Sit Independent TRANSFERS Sit to Stand SBA/supervision Other (Comment) PT NEEDED VC FOR HAND PLACEMENT TO PUSHOFF THE BED TO STAND AND TO REACH BACK FOR CHAIR PRIOR TO SITTING DOWN Gait Gait Assistance Min assist Assistive Device 2 Wheeled walker Distance Ambulated (ft) 150 ft Other (Comment) PT HAD 4 LITERS OF O2 AND NEEDED FREQUENT REST PERIODS DUE TO SOB AND FATIGUE . PT O2 LEVELS 95-98 % WHEN O2 ON . Balance Standing - Static SBA;Support of both upper extremities Standing - Dynamic Min Assist;Support of both upper extremities Other (Comment) WW Exercises Ankle Pumps X Quad Sets X Short Arc Quad X Heelslides X Straight Leg Raise X Glut Sets X Hip Flexion X Hip Abduction X Supine LE Exercise INSTUCTED PT ON SITTING AND SEMI RECLINED EX MARKED ABOVE X 15 REPS WITH FREQUENT REST PERIOD DUE TO FATIGUE Patient/Family Training Bed Mobility X Transfer Training X Gait Training X Precautions X Exercise Program X Recommendation PT Recommendation Home with assistance;Home PT PT Equipment Recommended To Be Determined Plan PT Treatments/Interventions Gait Training;Therapeutic Exercises;Therapeutic Activities;Neuromuscular re-education Progress Slow progress, medical status limitations PT Frequency 5 times/week;6 times/week PT plan for next session CONT WITH EX , TT AND GAIT TRAINING WITH WW TOLERATED . If this is the last treatment note,it will serve as the discharge summary Yes End of Session End of Session Safety Chair alarm set/activated;Call light within reach;Nursing aware of session * Jonathan Rolle MD - 10/19/2021 12:24 PM CDT Hospitalist Daily Progress Note Subjective Patient reports continued dyspnea on exertion slowly improving. She is very sleepy today. No CP, F/C, N/V. She does have some cough. Transitioned to PO Lasix. Still intermittently requires O2 primarily when sleeping, currently on 1L NC this AM. CXR last night with increasing infiltrates. Objective Filed Vitals: 10/19/21 0949 10/19/21 1115 10/19/21 1116 10/19/21 1119 BP: 97/51 99/45 (!) 83/53 Pulse: 87 92 Resp: 17 24 Temp: 97.2 ??F (36.2 ??C) TempSrc: Temporal SpO2: 93% 97% 97% Weight: Height: Intake/Output 24H Total: Intake/Output Summary (Last 24 hours) at 10/19/2021 1224 Last data filed at 10/19/2021 0552 Gross per 24 hour Intake -- Output 1300 ml Net -1300 ml Physical Exam: General: No acute distress, breathing comfortably on 1L NC Eyes: Extraocular movements intact ENT: Neck supple, Septum is midline. Lungs: Clear to auscultation bilaterally, No wheezes, bibasilar crackles Cardiovascular: Regular rate rhythm, S1 and S2 normal, No murmurs Abdomen: Soft, nondistended, Nontender, Bowel sounds observed Extremities: no lower extremity edema. Neurological: Alert, awake, oriented x3, No gross neuro deficit Skin: Skin color, texture, turgor normal. No rashes or lesions Medications ??? aspirin 324 mg Oral Once ??? azithromycin 500 mg Intravenous Q24H ??? cefTRIAXone 1 g Intravenous Q24H ??? furosemide 40 mg Oral Daily ??? gabapentin 300 mg Oral BID ??? lidocaine 1 patch Transdermal Q24H ??? lisinopril 40 mg Oral Daily ??? methIMAzole 5 mg Oral Daily ??? metoprolol succinate ER 25 mg Oral Daily ??? pantoprazole EC 20 mg Oral Daily ??? rosuvastatin 5 mg Oral Nightly at bedtime ??? venlafaxine XR 150 mg Oral Daily ??? warfarin (COUMADIN) pharmacy to dose Oral See Admin Instructions acetaminophen, ALPRAZolam, calcium carbonate, HYDROcodone-acetaminophen, rssuxxzgp-oedatwvx-hztltpmeedi, ondansetron, polyethylene glycol Labs, Imaging, Other Studies Recent Labs Lab 10/15/21 1320 10/16/21 0416 10/17/21 0645 10/18/21 0454 10/19/21 0950 WBC 5.1 4.3* 4.2* 4.7 4.6 RBC 3.05* 2.63* 2.77* 2.78* 2.89* HGB 9.6* 8.2* 8.9* 9.0* 9.2* HCT 32.0* 26.5* 29.0* 29.8* 30.4* MCV 104.9* 100.8* 104.7* 107.2* 105.2* MCH 31.5* 31.2* 32.1* 32.4* 31.8* MCHC 30.0* 30.9* 30.7* 30.2* 30.3* PLT 227 200 202 188 185 RDW 12.8 12.7 12.8 12.6 12.5 MPV 12.7* 12.7* 13.1* 12.8* 12.8* PERNEU 67.0 46.0 44.8 -- 53.6 PERLYM 16.3 28.8 28.0 -- 23.6 PERMON 13.9 20.4 21.8 -- 17.6 LYMC 0.83* 1.24 1.18 -- 1.09 MONOC 0.71 0.88* 0.92* -- 0.81 EOSC 0.09 0.16 0.18 -- 0.18 BASOC 0.04 0.04 0.04 -- 0.04 DTYPE AUTOMATED DIFFERENTIAL AUTOMATED DIFFERENTIAL AUTOMATED DIFFERENTIAL MANUAL DIFFERENTIAL AUTOMATED DIFFERENTIAL Recent Labs Lab 10/15/21 1320 10/16/21 0416 10/17/2145 10/18/214 10/19/21 0950 NA 140 140 141 141 142 K 4.5 4.7 4.8 5.1 4.8 CL 111* 112* 112* 110* 110* CO2 26.3 26.8 29.7 27.2 29.0 AGAP 2.7* 1.2* NOT CALCULATED 3.8* 3.0* BUN 22* 23* 29* 36* 44* CR 1.34* 1.08* 1.39* 1.44* 1.52* BUNCREATININ 16.4 21.3 20.9 25.0 28.9* GLU 222* 86 91 77 90 CA 10.2* 9.6 10.0 9.7 9.8 TP 6.6 -- -- -- -- ALB 2.8* -- -- -- -- TBIL 0.5 -- -- -- -- ALKP 89 -- -- -- -- AST 36 -- -- -- -- ALT 40 -- -- -- -- Recent Labs Lab 10/17/21 0645 TSH <0.005* Recent Labs Lab 10/15/21 1538 10/16/21 0416 10/17/21 0645 10/18/21 0454 10/19/21 0950 INR 4.6 < > 2.9 2.5 2.9 PTT 41.5* -- -- -- -- < > = values in this interval not displayed. Recent Labs Lab 10/15/21 1320 10/15/21 1458 10/15/21 1717 TROP 25 26 24 No results for input(s): LACTICACID, PROCT in the last 168 hours. No results for input(s): PH, PCO2, PO2, V4ADHFQLESLB, BICARBWB, BASEDEFICIT, BASEEXCESS in the pnab130 hours. No results found for this or any previous visit. Imaging ULTRASOUND GENERIC Result Date: 10/03/2021 Ordered by an unspecified provider. IMAGE GENERIC Result Date: 10/02/2021 Ordered by an unspecified provider. CT GENERIC Result Date: 10/03/2021 Ordered by an unspecified provider. CT ABD+PEL W CON Result Date: 09/17/2021 Examination: CT abdomen and pelvis with IV contrast. Clinical Information: Right upper quadrant pain. Comparison:No comparison. Technique: IV contrast: 100 mL Isovue 370. Oral contrast: None. Technical comments: Standard technique. Dose reduction: This CT exam was performed using one or more of thefollowing dose reduction techniques: Automated exposure control, adjustment of the mA and/or kV according to patient size, and/or use of iterative reconstruction technique. Findings: LOWER CHEST Heart is mildly enlarged. Lung bases are clear. No pleural or pericardial effusions. UPPER ABDOMEN Liverand bile ducts: Normal in size and contour. Nonspecific focal calcifications identified involving the lateral right capsular surface, possibly from previous injury or a granulomatous process. Portal vein and hepatic veins are patent. No biliary dilatation. Gallbladder: No gallstones or evidence of cholecystitis. There is an abnormal region of wall thickening involving the gallbladder fundus measuring 1.5 cm (series 2 image 49). This appears to enhance and is overall nonspecific but cannot exclude malignancy. Pancreas: Normal. Spleen: Normal. RETROPERITONEUM Adrenals: Normal. Kidneys: Enhance symmetrically with no solid mass or hydronephrosis. Bilateral renal cysts. Tiny nonobstructing rightrenal stone. Lymph nodes: No lymphadenopathy in the abdomen or pelvis. BOWEL AND PERITONEUM Bowel: No bowel obstruction. The appendix is unremarkable. Diffuse colonic diverticulosis. There is wall thickening of the mid sigmoid colon with adjacent hazy fat stranding, raising concern for mild acute diverticulitis. No perforation or abscess identified. Free air or fluid: None. VASCULATURE Atherosclerotic calcification of the abdominal aorta and its branches without aneurysm. Anatomic variant of the celiac artery and SMA demonstrating a common origin consistent with celiacomesenteric trunk. Thereappears to be mild to moderate stenosis of the origin related to these calcifications. PELVIS No abnormality. BONES/SOFT TISSUES Mild to moderate multilevel spondylosis. No acute osseous abnormality is identified. Impression: 1. Focal wall thickening of the gallbladder fundus measuring 1.5 cm with findings suggestive of enhancement. This is of uncertain etiology and may represent extensive adenomyomatosis but cannot definitively exclude a gallbladder malignancy. Could further correlate with ultrasound. No gallstones or distinct findings of cholecystitis. 2. Small bilateral renal cysts. Tiny nonobstructing right renal stone. 3. Diffuse colonic diverticulosis. Wall thickening and inflammatory changes of the mid sigmoid colon suggestive of acute diverticulitis. No perforation or abscess. 4. 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 There is notable atherosclerotic calcification of the origin of this trunk resulting in mild to moderate stenosis. Ordered By: THANH GARZA Interpreted By: Dov Bryson MD, 09/17/2021 10:28 PM CTA CHEST Result Date: 10/15/2021 Examination: CTA [...] NEGRITA DUPLEX LOW EXT RT Result Date: 10/15/2021 VENOUS DUPLEX IMAGING RIGHT LOWER EXTREMITY VASCULAR LAB Pat.Name: NOEL BOBORICDOC FERREIRA Pat.ID: [id number] .Date: 10/15/2021 Exam Time: 4:09:00 PM Study Type:TOYA VS Venous Duplex Leg Rt Age: 3 1945,76Y Sex: FEMALE Sonogrphr: Diana Bronson RVT Pat. Stat.:Outpatient Room: ER History / Clinical: Chest pain. Calf injury, redness, edema. PMH: cad, dm, htn, ckd, hld, copd Procedures: [...] is detected in thecommon femoral vein. CONCLUSION: ++++++++++++++++++++++++++++++++++++ FINDINGS: ++++++++++++++++++++ ++++++++++++++++ Unsigned José Kaiser M.D. XR CHEST PORTABLE Result Date: 10/15/2021 Examination: [...] By: Estevan Martines MD, 10/15/2021 1:33 PM EKG: Results for orders placed or performed during the hospital encounter of 10/15/21 ECG 12 lead Narrative [place] Test Date: 2021-10-15 Pat Name: ANA MARIA BOBO Department: 41 Room: C04 Gender: Female Stock Feeder: [employer] : 1945 Requested By: CARRIE CALHOUN Order Number: [id number] Reading MD: Gael Hart Measurements Intervals Barto Rate: 108 P: MO: 0 QRS: -40 QRSD: 137 T: 115 QT: 349 QTc: 468 Interpretive Statements ATRIAL FIBRILLATION WITH RAPID VENTRICULAR RESPONSE LEFT AXIS DEVIATION LEFT BUNDLE BRANCH BLOCK Compared to ECG 09/17/2021 20:23:49 Left-axis deviation now present Sinus rhythm no longer present ECG 12 lead Narrative [facility] Test Date: 2021-10-15 Pat Name: ANA MARIA BOBO Department: 41 Room: C04 Gender: Female Stock Feeder: : 1945 Requested By: CARRIE CALHOUN Order Number: [id number] Reading MD: Gael Hart Measurements Intervals Barto Rate: 71 P: MO: 0 QRS: -28 QRSD: 145 T: 120 QT: 398 QTc: 434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 supien to sit on this date however upon sitting has significant change in status reporting dizziness and feeling off. RN called into room and patient returned to supine position. Recommending home with assist pending further patient progress with mobility. Recommendation PT Recommendation Home with assistance;Home PT PT Equipment Recommended To Be Determined Barriers to Community Discharge Safety Plan PT Treatments/Interventions Gait Training;Therapeutic Exercises;Therapeutic Activities;Neuromuscular re-education Progress Slow progress, medical status limitations PT Frequency 5 times/week;6 times/week PT plan for next session progress functional mobility as tolerated. If this is the last treatment note,it will serve as the discharge summary Yes End of Session End of Session Safety Call light within reach;Nursing aware of session;Bed alarm set/activated Interdisciplinary Collaboration rn * Zoey Ricks, JIMBO-C - 10/18/2021 11:09 AM CDT Cardiology Progress Note Primary Certified Scrum Master: Dr. Paredes at [facility] Dr. Robbins seeing Subjective: resting in bed. Feels a bit better today. Shortness of breath improving. Chest pain resolved. Ana Maria Bobo is a 76-year-old female patient with past medical history significant for atrial flutter, A-fib anticoagulated with warfarin, mechanical St. Lj aortic valve (on warfarin), hypertension, obstructive sleep apnea compliant with CPAP. CAD, diabetes mellitus, HTN, HLD who presents for evaluation of chest pain Her qa software tester is Dr. Paredes, last seen on 09/12/21. Patient complains of sharp chest pain, heart burn, and SOB. Patient denies nausea, vomiting, cough, or fever. Troponin negative. EKG shows AFIB with left bundle branch block. History of failed cardioversion in 2019, previously on sotalol and was placed on amiodarone. Underwent LHC in 2001 with minimal luminal irregularities. Prior lexiscan in 2019 with old anterior CO. Last echo 2020 in care everywhere, EF was 50-55%. Mild AI. Assessment and Plan: Chest pain Underwent LHC in 2001. Nonobstructive disease at that time. Presents with chest pain. Troponin negative. Suspect chest pain is related to volume overload. Echo shows EF did drop to 40-45%. Moderate global hypokinesis. Aortic valve stable. Mild to moderate pulm HTN. Moderate MR. Continue increased lasix. Chest pain resolved. Sob slowly improving. Consult PT PAF Hx of cardioversion, sotalol therapy and now on amio. On warfarin INR is high at 4.3 History of mechanical AVR St. Lj mechanical aortic valve. Consult pharmacy for warfarin management. INR currently 2.5 HFrEF EF dropped to 40-45%. Global hypokinesis, moderate MR. Trace periprosthetic aortic regurg. Increaselasix to 40mg BID. Suspect symptoms were related to CHF. She is feeling bit better today. Monitor creatinine and BP. Creatinine is 1.44 She is still a bit SOB with exertion. Transition to orals tomorrow. Likely DC tomorrow Consult PT to work with patient Anemia Stable. Iron WNL. Continue diuresis Continue Toprol XL and ACEI Probable home tomorrow Consult PT Past Medical History: Diagnosis Date ??? Aneurysm [...] ??? Diabetes Father ??? Heart Mother ??? aspirin 324 mg Oral Once ??? furosemide 40 mg Intravenous BID ??? gabapentin 300 mg Oral BID ??? lidocaine 1 patch Transdermal Q24H ??? lisinopril 40 mg Oral Daily ??? methIMAzole 5 mg Oral Daily ??? metoprolol succinate ER 25 mg Oral Daily ??? pantoprazole EC 20 mg Oral Daily ??? rosuvastatin 5 mg Oral Nightly at bedtime ??? venlafaxine XR 150 mg Oral Daily ??? warfarin (COUMADIN) pharmacy to dose Oral See Admin Instructions acetaminophen, ALPRAZolam, HYDROcodone-acetaminophen, ondansetron, polyethylene glycol Prior to Admission medications Medication Sig Start Date End Date Taking? Authorizing Provider acetaminophen (TYLENOL) 500 MG tablet Take 500 mg by mouth daily as needed. 08/17/20 Yes Doc Abstract albuterol sulfate HFA 108 (90 Base) MCG/ACT inhaler Inhale 2 puffs into the lungs every 6 (six) hours as needed for Wheezing. 10/10/21 Yes Sanjeev Webster, DO ALPRAZolam (XANAX) 0.25 MG tablet Take 1 tablet (0.25 mg total) by mouth 2 (two) times daily as needed for Anxiety. 10/10/21 Yes Sanjeev Webster DO Cholecalciferol (VITAMIN D3) 25 MCG (1000 UT) Cap Take 1,000 Units by mouth daily. Yes Doc Abstract FEROSUL 325 (65 Fe) MG tablet Take 1 tablet by mouth once daily Patient taking differently: Take 325 mg by mouth daily with breakfast. 10/07/21 Yes Sanjeev Webster DO fluticasone propionate 50 MCG/ACT nasal spray 2 sprays by Nasal route daily. Yes Doc Abstract furosemide 20 MG tablet Take 1 tab every other day. Patient taking differently: Take 20 mg by mouth every other day. Take 1 tab every other day. 05/24/21 Yes Sanjeev Webster DO gabapentin 300 MG capsule Take 1 capsule (300 mg total) by mouth 2 (two) times daily. 07/16/20 Yes Juan Pablo Dominguez MD HYDROcodone-acetaminophen (NORCO) 10-325 MG tablet Take 1 tablet by mouth every 6 (six) hours as needed for Pain. Indications: Chronic Pain Do not take with alprazolam. No further refills until seen in office. 09/26/21 Yes Sanjeev Webster DO lidocaine 5 % Apply pain patch to affected area. Change after 12 hours. 08/30/20 Yes Trina Hoffman NP LISINOPRIL 40 MG tablet Take 1 tablet by mouth once daily Patient taking differently: Take 40 mg by mouth daily. 03/11/21 Yes Sanjeev Webster DO methIMAzole 5 MG tablet Take 1 tablet (5 mg total) by mouth daily. 08/30/21 Yes Panda Moreno MD metoprolol succinate ER 25 MG 24 hr tablet Take 1 tablet (25 mg total) by mouth daily. 09/02/21 Yes Sanjeev Webster DO omeprazole (PRILOSEC) 20 MG capsule Take 1 capsule by mouth once daily 10/07/21 Yes Sanjeev Webster DO rosuvastatin 5 MG tablet Take 1 tablet (5 mg total) by mouth nightly at bedtime. 08/14/21 Yes Jonathan Webtser DO VENLAFAXINE XR 150 MG 24 hr capsule Take 1 capsule by mouth once daily Patient taking differently: Take 150 mg by mouth daily. 06/17/21 Yes Sanjeev Webster, DO warfarin (COUMADIN) 5 MG tablet Take 5 mg by mouth daily. Yes Doc Abstract Allergies Allergen Reactions ??? Atorvastatin Leg Pain Leg pain/cramps. Resolved after stopping. ??? Tape Contact Dermatitis ??? Bacitracin Other (see comment) ??? Benzalkonium Other (see comment) ??? Gramicidin Other (see comment) ??? Hydrocortisone Other (see comment) ??? Neomycin Other (see comment) ??? Polymyxin B Other (see comment) Review of Systems Constitutional: Negative for chills, diaphoresis, fever, malaise/fatigue and weight loss. HENT: Negative for hearing loss. Eyes: Negative for blurred vision and double vision. Respiratory: Positive for cough and shortness of breath. Negative for wheezing. Cardiovascular: Negative for chest pain, palpitations, [...] for depression and memory loss. Filed Vitals: 10/18/21 0435 10/18/21 0804 10/18/21 0805 10/18/21 0806 BP: 119/53 96/49 117/54 113/54 Pulse: 90 75 91 93 Resp: 16 17 Temp: 97.8 ??F (36.6 ??C) 97.5 ??F (36.4 ??C) TempSrc: Oral Temporal SpO2: 94% 98% 98% 96% Weight: 64 kg (141 lb 1.6 oz) Height: Physical Exam: Physical Exam Constitutional: Appearance: She is well-developed. Eyes: Pupils: Pupils are equal, round, and reactive to light. Neck: Vascular: No JVD. Cardiovascular: Rate and Rhythm: Normal rate and regular rhythm. Heart sounds: Normal heart sounds. No murmur heard. Pulmonary: Effort: Pulmonary effort is normal. Breath sounds: Decreased air movement present. Abdominal: General: Bowel sounds are normal. There is no distension. Palpations: Abdomen is soft. Tenderness: There is no abdominal tenderness. Musculoskeletal: General: Normal range of motion. Skin: General: Skin is warm and dry. Coloration: Skin is pale. Neurological: Mental Status: She is alert and oriented to person, place, and time. Recent Labs Lab 10/15/21 1320 10/16/21 0416 10/17/21 0645 10/18/21 0454 WBC 5.1 4.3* 4.2* 4.7 RBC 3.05* 2.63* 2.77* 2.78* HGB 9.6* 8.2* 8.9* 9.0* HCT 32.0* 26.5* 29.0* 29.8* MCV 104.9* 100.8* 104.7* 107.2* MCH 31.5* 31.2* 32.1* 32.4* MCHC 30.0* 30.9* 30.7* 30.2* PLT 227 200 202 188 RDW 12.8 12.7 12.8 12.6 MPV 12.7* 12.7* 13.1* 12.8* PERNEU 67.0 46.0 44.8 -- PERLYM 16.3 28.8 28.0 -- PERMON 13.9 20.4 21.8 -- LYMC 0.83* 1.24 1.18 -- MONOC 0.71 0.88* 0.92* -- EOSC 0.09 0.16 0.18 -- BASOC 0.04 0.04 0.04 -- DTYPE AUTOMATED DIFFERENTIAL AUTOMATED DIFFERENTIAL AUTOMATED DIFFERENTIAL MANUAL DIFFERENTIAL Recent Labs Lab 10/15/21 1320 10/16/21 0416 10/17/21 0645 10/18/21 0454 NA 140 140 141 141 K 4.5 4.7 4.8 5.1 CL 111* 112* 112* 110* CO2 26.3 26.8 29.7 27.2 AGAP 2.7* 1.2* NOT CALCULATED 3.8* BUN 22* 23* 29* 36* CR 1.34* 1.08* 1.39* 1.44* BUNCREATININ 16.4 21.3 20.9 25.0 GLU 222* 86 91 77 CA 10.2* 9.6 10.0 9.7 TP 6.6 -- -- -- ALB 2.8* -- -- -- TBIL 0.5 -- -- -- ALKP 89 -- -- -- AST 36 -- -- -- ALT 40 -- -- -- Recent Labs Lab 10/15/21 1538 10/16/21 0416 10/17/21 0645 10/18/21 0454 INR 4.6 4.3 2.9 2.5 PTT 41.5* -- -- -- Recent Labs Lab 10/15/21 1320 10/16/21 0416 10/17/21 0645 10/18/21 0454 NA 140 < > 141 141 K 4.5 < > 4.8 5.1 CL 111* < > 112* 110* CO2 26.3 < > 29.7 27.2 BUN 22* < > 29* 36* CR 1.34* < > 1.39* 1.44* CA 10.2* < > 10.0 9.7 GLU 222* < > 91 77 AGAP 2.7* < > NOT CALCULATED 3.8* TP 6.6 -- -- -- ALB 2.8* -- -- -- ALT 40 -- -- -- WBC 5.1 < > 4.2* 4.7 HGB 9.6* < > 8.9* 9.0* PLT 227 < > 202 188 TSH -- -- <0.005* -- < > = values in this interval not displayed. Recent Labs Lab 10/15/21 1320 10/15/21 1458 10/15/21 1717 TROP 25 26 24 No results found for this visit on 10/15/21 (from the past 8736 hour(s)). No results found for this visit on 10/15/21 (from the past 8736 hour(s)). HAI DAILEY Cosigned by Tere Robbins MD at 10/18/2021 8:27 PM CDT Associated attestation - Tere Robbins MD - 10/18/2021 8:27 PM CDT I, TERE ROBBINS MD, performed an examination of the patient and [facility] I reviewed the GERRY's progress note and agree with the findings and plan of care, except as I have documented. Patient seen and examined. Feeling better she is having some complaints of nausea. Her shortness ofbreath is improved. Echocardiogram demonstrated drop in her ejection fraction. Patient has mild to moderate pulmonary hypertension evidence of moderate mitral regurgitation. Patient continues to be quite weak. She is not requiring oxygen. She is had excellent diuresis. Impression recommendation 1. Decompensated heart failure heart failure with reduced ejection fraction: Patient making good progress continue IV Lasix through tomorrow. Patient could potentially be transitioned addition to oral Lasix tomorrow with possible discharge on Thursday. Plan for chest x-ray proBNP tomorrow. She will need to follow-up with primary qa software tester. Continue metoprolol succinate and lisinopril.Low-sodium diet monitor weights at home. 3. Mitral regurgitation at least moderate. Cannot she will need follow-up imaging in 6 months. We will consider transesophageal echocardiogram to further evaluate the mitral valve. She may be a candidate for MitraClip in the future. 4. Atrial fibrillation: Continue anticoagulation. Continue beta-lexy amiodarone on hold patient failed sotalol. She may be a candidate for ablation possible AV marisol ablation and permanent pacemaker. 5. AVR functioning at this point continue anticoagulation. Overall patient is stable but has multiple comorbidities. She continued close interval follow-up. Patient be referred to pulmonary and endocrinology as an outpatient. * Fátima Rushing - 10/18/2021 8:53 AM CDT I delivered the First Important Message from Medicare ([employer] to Ana Maria Bobo and after explaining the form to the patient, the Patient signed the form. The Patient received a copy of the form for their records. 10/18/21 0853 Forms First Important Message from Medicare ([employer]) Signed Copy delivered * Rafia Florentino PharmD - 10/17/2021 4:51 PM CDT Warfarin Pharmacy to Dose - Day #2 Indication: Hx mechanical atrial valve + A-Fib Goal INR range: 2.5 - 3.5 Home dosage: 5 mg daily Admission INR level: 4.6 Date Dose INR H/H/PLT 10/16 held 4.3 9.6/32/227 10/17 2.9 8.9/ Interacting medications changes: no new meds currently; on methimazole at home so thyroid dysfunction could affect INR Diet: Cardiac diet; 50-65% PO intake documented on 10/16 Plan: Patient with PMH significant for atrial flutter, A-fib, mechanical St. Lj aortic valve (on warfarin), HTN, obstructive sleep apnea compliant with CPAP, CAD, DM, HTN, HLD presented for evaluation of chest pain. Patient was hospitalized at [place] 1 week ago for the same symptoms and treatedfor diverticulitis, discharged on Augmentin. INR supratherapeutic on admission, likely secondary toabbx interaction and inconsistent PO intake. Warfarin dose held with INR downtrending into therapeutic range at 2.9 today. In reviewing outpatient notes and records, patient had previously been on 6 mg daily as recently as August and had multiple supratherapeutic INRs and so dosing reduced to 5 mg podaily. Then patient was admitted to [facility] and dosing was increased to 6 mg daily for a time during/after that. Will initiate warfarin at 5 mg po x 1 tonight as INR significantly downtrended after held dosing and will adjust accordingly based on daily PT/INR. Thank you. * Jonathan Rolle MD - 10/17/2021 12:06 PM CDT Hospitalist Daily Progress Note Subjective Patient reports continued dyspnea on exertion slowly improving. No CP, F/C, N/V. She does have somecough. Echo shows worsening EF from prior. Objective Filed Vitals: 10/17/21 0749 10/17/21 0752 10/17/21 0754 10/17/21 1100 BP: 121/87 134/63 (!) 131/94 105/74 Pulse: 87 90 Resp: 24 20 Temp: 97.2 ??F (36.2 ??C) 98.1 ??F (36.7 ??C) TempSrc: Temporal Axillary SpO2: 92% 95% Weight: Height: Intake/Output 24H Total: Intake/Output Summary (Last 24 hours) at 10/17/2021 1206 Last data filed at 10/16/2021 2157 Gross per 24 hour Intake 340 ml Output 2100 ml Net -1760 ml Physical Exam: General: No acute distress, breathing comfortably on room air. Eyes: Extraocular movements intact ENT: Neck supple, Septum is midline. Lungs: Clear to auscultation bilaterally, No wheezes, bibasilar crackles Cardiovascular: Regular rate rhythm, S1 and S2 normal, No murmurs Abdomen: Soft, nondistended, Nontender, Bowel sounds observed Extremities: no lower extremity edema. Neurological: Alert, awake, oriented x3, No gross neuro deficit Skin: Skin color, texture, turgor normal. No rashes or lesions Medications ??? aspirin 324 mg Oral Once ??? furosemide 40 mg Intravenous BID ??? gabapentin 300 mg Oral BID ??? lidocaine 1 patch Transdermal Q24H ??? lisinopril 40 mg Oral Daily ??? methIMAzole 5 mg Oral Daily ??? metoprolol succinate ER 25 mg Oral Daily ??? pantoprazole EC 20 mg Oral Daily ??? rosuvastatin 5 mg Oral Nightly at bedtime ??? venlafaxine XR 150 mg Oral Daily ??? warfarin (COUMADIN) pharmacy to dose Oral See Admin Instructions acetaminophen, ALPRAZolam, HYDROcodone-acetaminophen, ondansetron, polyethylene glycol Labs, Imaging, Other Studies Recent Labs Lab 10/15/21 1320 10/16/21 0416 10/17/21 0645 WBC 5.1 4.3* 4.2* RBC 3.05* 2.63* 2.77* HGB 9.6* 8.2* 8.9* HCT 32.0* 26.5* 29.0* MCV 104.9* 100.8* 104.7* MCH 31.5* 31.2* 32.1* MCHC 30.0* 30.9* 30.7* PLT 227 200 202 RDW 12.8 12.7 12.8 MPV 12.7* 12.7* 13.1* PERNEU 67.0 46.0 44.8 PERLYM 16.3 28.8 28.0 PERMON 13.9 20.4 21.8 LYMC 0.83* 1.24 1.18 MONOC 0.71 0.88* 0.92* EOSC 0.09 0.16 0.18 BASOC 0.04 0.04 0.04 DTYPE AUTOMATED DIFFERENTIAL AUTOMATED DIFFERENTIAL AUTOMATED DIFFERENTIAL Recent Labs Lab 10/15/21 1320 10/16/21 0416 10/17/21 0645 NA 140 140 141 K 4.5 4.7 4.8 CL 111* 112* 112* CO2 26.3 26.8 29.7 AGAP 2.7* 1.2* NOT CALCULATED BUN 22* 23* 29* CR 1.34* 1.08* 1.39* BUNCREATININ 16.4 21.3 20.9 GLU 222* 86 91 CA 10.2* 9.6 10.0 TP 6.6 -- -- ALB 2.8* -- -- TBIL 0.5 -- -- ALKP 89 -- -- AST 36 -- -- ALT 40 -- -- Recent Labs Lab 10/17/21 0645 TSH <0.005* Recent Labs Lab 10/15/21 1538 10/16/21 0416 10/17/21 0645 INR 4.6 4.3 2.9 PTT 41.5* -- -- Recent Labs Lab 10/15/21 1320 10/15/21 1458 10/15/21 1717 TROP 25 26 24 No results for input(s): LACTICACID, PROCT in the last 168 hours. No results for input(s): PH, PCO2, PO2, V1PLNECORBFF, BICARBWB, BASEDEFICIT, BASEEXCESS in the ctii526 hours. No results found for this or any previous visit. Imaging ULTRASOUND GENERIC Result Date: 10/03/2021 Ordered by an unspecified provider. IMAGE GENERIC Result Date: 10/02/2021 Ordered by an unspecified provider. CT GENERIC Result Date: 10/03/2021 Ordered by an unspecified provider. CT ABD+PEL W CON Result Date: 09/17/2021 Examination: CT abdomen and pelvis with IV contrast. Clinical Information: Right upper quadrant pain. Comparison:No comparison. Technique: IV contrast: 100 mL Isovue 370. Oral contrast: None. Technical comments: Standard technique. Dose reduction: This CT exam was performed using one or more of thefollowing dose reduction techniques: Automated exposure control, adjustment of the mA and/or kV according to patient size, and/or use of iterative reconstruction technique. Findings: LOWER CHEST Heart is mildly enlarged. Lung bases are clear. No pleural or pericardial effusions. UPPER ABDOMEN Liverand bile ducts: Normal in size and contour. Nonspecific focal calcifications identified involving the lateral right capsular surface, possibly from previous injury or a granulomatous process. Portal vein and hepatic veins are patent. No biliary dilatation. Gallbladder: No gallstones or evidence of cholecystitis. There is an abnormal region of wall thickening involving the gallbladder fundus measuring 1.5 cm (series 2 image 49). This appears to enhance and is overall nonspecific but cannot exclude malignancy. Pancreas: Normal. Spleen: Normal. RETROPERITONEUM Adrenals: Normal. Kidneys: Enhance symmetrically with no solid mass or hydronephrosis. Bilateral renal cysts. Tiny nonobstructing rightrenal stone. Lymph nodes: No lymphadenopathy in the abdomen or pelvis. BOWEL AND PERITONEUM Bowel: No bowel obstruction. The appendix is unremarkable. Diffuse colonic diverticulosis. There is wall thickening of the mid sigmoid colon with adjacent hazy fat stranding, raising concern for mild acute diverticulitis. No perforation or abscess identified. Free air or fluid: None. VASCULATURE Atherosclerotic calcification of the abdominal aorta and its branches without aneurysm. Anatomic variant of the celiac artery and SMA demonstrating a common origin consistent with celiacomesenteric trunk. Thereappears to be mild to moderate stenosis of the origin related to these calcifications. PELVIS No abnormality. BONES/SOFT TISSUES Mild to moderate multilevel spondylosis. No acute osseous abnormality is identified. Impression: 1. Focal wall thickening of the gallbladder fundus measuring 1.5 cm with findings suggestive of enhancement. This is of uncertain etiology and may represent extensive adenomyomatosis but cannot definitively exclude a gallbladder malignancy. Could further correlate with ultrasound. No gallstones or distinct findings of cholecystitis. 2. Small bilateral renal cysts. Tiny nonobstructing right renal stone. 3. Diffuse colonic diverticulosis. Wall thickening and inflammatory changes of the mid sigmoid colon suggestive of acute diverticulitis. No perforation or abscess. 4. 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 There is notable atherosclerotic calcification of the origin of this trunk resulting in mild to moderate stenosis. Ordered By: THANH GARZA Interpreted By: Dov Bryson MD, 09/17/2021 10:28 PM CTA CHEST Result Date: 10/15/2021 Examination: CTA [...] NEGRITA DUPLEX LOW EXT RT Result Date: 10/15/2021 VENOUS DUPLEX IMAGING RIGHT LOWER EXTREMITY VASCULAR LAB Pat.Name: ANA MARIA BOBO Pat.ID: [id number] St.Date: 10/15/2021 Exam Time: 4:09:00 PM Study Type:TOYA VS Venous Duplex Leg Rt Age: 3 1945,76Y Sex: FEMALE Sonogrphr: Diana Bronson RVT Pat. Stat.:Outpatient Room: ER History / Clinical: Chest pain. Calf injury, redness, edema. PMH: cad, dm, htn, ckd, hld, copd Procedures: [...] is detected in thecommon femoral vein. CONCLUSION: ++++++++++++++++++++++++++++++++++++ FINDINGS: ++++++++++++++++++++ ++++++++++++++++ Unsigned José Kaiser M.D. XR CHEST PORTABLE Result Date: 10/15/2021 Examination: [...] By: Estevan Martines MD, 10/15/2021 1:33 PM EKG: Results for orders placed or performed during the hospital encounter of 10/15/21 ECG 12 lead Narrative [place] Test Date: 2021-10-15 Pat Name: ANA MARIA BOBO Department: 41 Room: C04 Gender: Female Stock Feeder: [facility] : 1945 Requested By: CARRIE CALHOUN Order Number: [id number] Reading MD: Gael Hart Measurements Intervals Barto Rate: 108 P: MO: 0 QRS: -40 QRSD: 137 T: 115 QT: 349 QTc: 468 Interpretive Statements ATRIAL FIBRILLATION WITH RAPID VENTRICULAR RESPONSE LEFT AXIS DEVIATION LEFT BUNDLE BRANCH BLOCK Compared to ECG 09/17/2021 20:23:49 Left-axis deviation now present Sinus rhythm no longer present ECG 12 lead Narrative [place] [place] [address] [facility] Test Date: 2021-10-15 Pat Name: ANA MARIA BOBO Department: 41 Room: 4 Gender: Female Stock Feeder: : 1945 Requested By: CARRIE CALHOUN Order Number: [id number] Reading MD: Gael Hart Measurements Intervals Barto Rate: 71 P: MO: 0 QRS: -28 QRSD: 145 T: 120 QT: 398 QTc: 434 Interpretive Statements ATRIAL FIBRILLATION LEFT BUNDLE BRANCH BLOCK Compared to ECG 10/15/2021 13:07:12 Left-axis deviation no longer present ECG 12 lead Narrative [place] [place] [address] [facility] Test Date: 2021-10-15 Pat Name: ANA MARIA JERAMIE Department: 41 Room: C04 Gender: Female Stock Feeder: : 1945 Requested By: CARRIE CALHOUN Order Number: [id number] Reading MD: Gael Hart Measurements Intervals Barto Rate: 83 P: MO: 0 QRS: -27 QRSD: 145 T: 85 QT: 381 QTc: 448 Interpretive Statements ATRIAL FIBRILLATION LEFT BUNDLE BRANCH BLOCK Compared to ECG 10/15/2021 15:06:38 No significant changes Assessment & Plan Chest pain: Initial troponin within normal limits, negative x 2 EKG without evidence of acute ischemia or infarction Telemetry Stress test performed stress testing performed in 2019 within normal limits. Cardiology consulted Suspect 2/2 volume overload Echo with decreased EF 40-45%, mild hypokinesis Acute HFpEF now HFrEF exacerbation Cardiology consulted Check BNP- elevated 8000 IV diuresis, now BID Monitor I/Os, daily weights ?? A.Fib: Rate control with Toprol Stroke risk reduction with Coumadin currently holding Was previously on amiodarone, recently discontinued on 09/12/21 Telemetry Supratherapeutic INR INR 4.6 on admission Hold warfarin Check daily INR Restart when able Monitor for signs of bleeding Improving, INR now 2.9 Essential Hypertension: continue outpatient medications as indicated. ?? Hyperlipidemia: Continue statin ?? Hyperthyroidism Continue methimazole Check TSH- low, T4 4.87 ?possible side effect from amiodarone use, stopped per primary qa software tester on 09/12. Chronic kidney disease: Renal function around baseline: Renally dose medications avoid nephrotoxic medications avoid hypotension. Monitor with diuresis?? GERD: Continue PPI, ?? - DVT prophylaxis: INR 4.6, SCDs - Diet/IVF: Cardiac - Code status: Full code - Disposition: Telemetry labs Other changes to plan of care to be made based on progress during hospitalization. 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 They are agreeable with plan and voiced understanding. JONATHAN ROLLE MD 10/17/2021 12:06 PM This note was dictated with BumpTop medical dictation software; misspellings, punctuation errors, omitted words or dictation variances may occur. * Silvina Hurtado RN - 10/17/2021 11:35 AM CDT Pt to stay another night or 2 r/t CHF exacerbation. Continue to diurese with lasix. Pt resting at this time. Did get up this morning and washed up independently in the restroom. * HAI Dailey - 10/17/2021 10:21 AM CDT Cardiology Progress Note Primary Certified Scrum Master: Dr. Paredes at [facility] Dr. Robbins seeing Subjective: resting in bed. Feels a bit better today. Shortness of breath improving. Chest pain resolved. Ana Maria Bobo is a 76-year-old female patient with past medical history significant for atrial flutter, A-fib anticoagulated with warfarin, mechanical St. Lj aortic valve (on warfarin), hypertension, obstructive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 for as noted in HPI. PHYSICAL EXAM: No intake or output data in the 24 hours ending 10/15/211947 Patient Vitals for the past 24 hrs: BP Temp Temp src Pulse Resp SpO2 Height Weight 10/15/21 1830 115/55 -- -- 95 20 97 % -- -- 10/15/21 1738 (!) 139/99 -- -- 89 25 96 % -- -- 10/15/21 1700 110/65 -- -- 93 21 95 % -- -- 10/15/21 1537 135/69 -- -- 93 17 96 % -- -- 10/15/21 1313 (!) 145/61 98 ??F (36.7 ??C) Oral 88 18 99 % 5' 4 (1.626 m) 83.5 kg (184 lb) Constitutional: Frail appearing elderly female no acute distress, Non-toxic appearance. HENT: Normocephalic, Atraumatic, Bilateral external ears normal, Oropharynx moist, No oral exudates, Nose normal. Eyes:, EOMI, Conjunctiva normal, No discharge. Neck- Normal range of motion, No tenderness, Supple, No stridor. Respiratory: : Bilaterally clear to auscultation with no rales, rhonchi, or wheezes. Good aeration.No accessory muscle use. Cardiovascular: S1, S2 present, irregularly irregular rate and rhythm. Systolic murmurs, no rubs, or gallops. Bilateral radial and dorsalis pedis pulses +2. Bilateral 1-2+ pedal edema. GI: Bowel sounds normal, Soft, No tenderness or guarding, No masses, No pulsatile masses. Musculoskeletal: Intact distal pulses, No edema, No tenderness, No cyanosis, No clubbing. Good range of motion in all major joints. No tenderness to palpation or major deformities noted. Back-tender to papulation over right suprascapular muscle Neurologic: Alert & oriented x 3, Cranial nerves II-XII grossly intact. Normal motor function, Normal sensory function, No focal deficits noted. Psychiatric: Affect normal, Judgment normal, Mood normal Labs: Lab Results Component Value Date CHOL 200 (H) 08/29/2021 TRI 108 08/29/2021 HDL 71 08/29/2021 NA 140 10/15/2021 K 4.5 10/15/2021 CL 111 (H) 10/15/2021 CO2 26.3 10/15/2021 BUN 22 (H) 10/15/2021 CR 1.34 (H) 10/15/2021 CA 10.2 (H) 10/15/2021 GLU 222 (H) 10/15/2021 AGAP 2.7 (L) 10/15/2021 TP 6.6 10/15/2021 ALB 2.8 (L) 10/15/2021 AST 36 10/15/2021 ALT 40 10/15/2021 WBC 5.1 10/15/2021 HGB 9.6 (L) 10/15/2021 PLT 227 10/15/2021 HGBA1C 6.1 08/29/2021 TSH <0.007 (L) 09/26/2021 INR Date Value Ref Range Status 10/15/2021 4.6 Final Comment: Recommended INR Therapeutic Goals: 2.0-3.0 Routine Therapy 2.5-3.5 Mechanical Prosthetic Valves (High Risk) Imaging: IMAGE GENERIC Result Date: 10/02/2021 Ordered by an unspecified provider. CT ABD+PEL W CON Result Date: 09/17/2021 Examination: CT abdomen and pelvis with IV contrast. Clinical Information: Right upper quadrant pain. Comparison:No comparison. Technique: IV contrast: 100 mL Isovue 370. Oral contrast: None. Technical comments: Standard technique. Dose reduction: This CT exam was performed using one or more of thefollowing dose reduction techniques: Automated exposure control, adjustment of the mA and/or kV according to patient size, and/or use of iterative reconstruction technique. Findings: LOWER CHEST Heart is mildly enlarged. Lung bases are clear. No pleural or pericardial effusions. UPPER ABDOMEN Liverand bile ducts: Normal in size and contour. Nonspecific focal calcifications identified involving the lateral right capsular surface, possibly from previous injury or a granulomatous process. Portal vein and hepatic veins are patent. No biliary dilatation. Gallbladder: No gallstones or evidence of cholecystitis. There is an abnormal region of wall thickening involving the gallbladder fundus measuring 1.5 cm (series 2 image 49). This appears to enhance and is overall nonspecific but cannot exclude malignancy. Pancreas: Normal. Spleen: Normal. RETROPERITONEUM Adrenals: Normal. Kidneys: Enhance symmetrically with no solid mass or hydronephrosis. Bilateral renal cysts. Tiny nonobstructing rightrenal stone. Lymph nodes: No lymphadenopathy in the abdomen or pelvis. BOWEL AND PERITONEUM Bowel: No bowel obstruction. The appendix is unremarkable. Diffuse colonic diverticulosis. There is wall thickening of the mid sigmoid colon with adjacent hazy fat stranding, raising concern for mild acute diverticulitis. No perforation or abscess identified. Free air or fluid: None. VASCULATURE Atherosclerotic calcification of the abdominal aorta and its branches without aneurysm. Anatomic variant of the celiac artery and SMA demonstrating a common origin consistent with celiacomesenteric trunk. Thereappears to be mild to moderate stenosis of the origin related to these calcifications. PELVIS No abnormality. BONES/SOFT TISSUES Mild to moderate multilevel spondylosis. No acute osseous abnormality is identified. Impression: 1. Focal wall thickening of the gallbladder fundus measuring 1.5 cm with findings suggestive of enhancement. This is of uncertain etiology and may represent extensive adenomyomatosis but cannot definitively exclude a gallbladder malignancy. Could further correlate with ultrasound. No gallstones or distinct findings of cholecystitis. 2. Small bilateral renal cysts. Tiny nonobstructing right renal stone. 3. Diffuse colonic diverticulosis. Wall thickening and inflammatory changes of the mid sigmoid colon suggestive of acute diverticulitis. No perforation or abscess. 4. 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 There is notable atherosclerotic calcification of the origin of this trunk resulting in mild to moderate stenosis. Ordered By: THANH GARZA Interpreted By: Dov Bryson MD, 09/17/2021 10:28 PM CTA CHEST Result Date: 10/15/2021 Examination: CTA [...] NEGRITA DUPLEX LOW EXT RT Result Date: 10/15/2021 VENOUS DUPLEX IMAGING RIGHT LOWER EXTREMITY VASCULAR LAB Pat.Name: ANA MARIA BOBO Pat.ID: [id number] .Date: 10/15/2021 Exam Time: 4:09:00 PM Study Type:TOYA VS Venous Duplex Leg Rt Age: 3 1945,76Y Sex: FEMALE Sonogrphr: Diana Bronson RVT Pat. Stat.:Outpatient Room: ER History / Clinical: Chest pain. Calf injury, redness, edema. PMH: cad, dm, htn, ckd, hld, copd Procedures: Carrillo scale, Color Doppler imaging, Doppler Spectral Analysis Race: W ++++++++++++++++++++++++++++++++++++SUMMARY: ++++++++++++++++++++++++++++++++++++ Right leg: There are NO apparent, deep or superficialvein, ACUTE character venous filling defects visualized in the femoral, popliteal, deep calf or proximal saphenous veins. Resting venous flow is normal phasic proximally. No valve reflux with compression maneuvers is detected in the femoral and popliteal veins. Left leg LIMITED: Resting venous flowis normal phasic at the common femoral. No valve reflux with compression maneuvers is detected in the common femoral vein. CONCLUSION: ++++++++++++++++++++++++++++++++++++ FINDINGS: ++++++++++++++++++ ++++++++++++++++++ Unsigned José Kaiser M.D. Data: TTE August 2020 Findings Left Ventricle: Left ventricle is normal in size. Systolic left ventricular function is at the lower limits of normal. EF evaluated by biplane method of disks. Left ventricle wall thickness is moderately increased. There are no regional wall motion abnormalities. Left ventricular diastolic function parameters are normal. ?? IVS: There is moderate dyssynergic motion in the interventricular septum. The change in the interventricular septum is consistent with a conduction abnormality or paced rhythm. ?? Right Ventricle: Normal size right ventricle. Right ventricular wall thickness is normal. Right ventricular systolic function is normal. Pulmonary artery pressure normal. ?? Left Atrium: The left atrium is mildly dilated. ?? Right Atrium: The right atrium is normal in size. ?? Mitral Valve: Mitral leaflets exhibit normal cuspal separation. Trivial mitral regurgitation. No mitral valve stenosis. Aortic Valve: Aortic leaflets exhibit normal cuspal separation. Mild aortic regurgitation is present. There is mild aortic stenosis. The aortic valve is a mechanical prosthesis. ?? Aortic Valve Measurements AV PGmax: 40 mmHg. AV PGmean: 22 mmHg. ?? Tricuspid Valve: Tricuspid valve leaflets are normal. Mild tricuspid regurgitation. No tricuspid valve stenosis. Pulmonic Valve: Pulmonic leaflets exhibit normal cuspal separation. No pulmonic valve regurgitation is evident. There is no pulmonic valve stenosis. ?? Aorta: The aorta is normal. No dilation of the ascending aorta. The aortic root exhibits??normal size. Great Vessels: IVC: The inferior vena cava is normal in size and course. ?? [facility] December 2018 Findings: Procedural Findings: One day rest/stress was used. Tc99m Sestamibi injected IV at rest was 10.2 millicuries. 32.7 millicuries of Tc99M Sestamibi injected IV during Lexiscan stress. Lexiscan 0.4mg administered IV over 10 seconds. Patient had no symptoms during stress test. Baseline heart rate was 60 BPM. Maximum Heart Rate Achieved was: 76 BPM. Baseline blood pressure was 180/90 mmHg. Post Stress Blood Pressure was 154/74 mmHg. Termination: Protocol complete. Resting ECG: Cannot r/o IMI - age uncertain. Cannot r/o anterior infarct - age uncertain. Atrial fibrillation. Post ECG: No??diagnostic ST changes. Arrhythmia: No arrhythmias seen. Perfusion Findings: Normal perfusion imaging. Technical quality of study is good. Significant patient motion was not noted. Left ventricle cavity size at rest is normal. Left ventricle cavity??size with stress is unchanged. A TID of 1.04 was automatically calculated. LV Function: Global left ventricular function is normal. Left ventricular ejection fraction is 62 %. Conclusions: ??Global left ventricular function is normal. Left ventricular ejection fraction is 62 %. ??Myocardial perfusion imaging is normal. ??Atrial fibrillation. Possible old anterior CO. ??Negative EKG portion of stress test. XR CHEST PORTABLE Result Date: 10/15/2021 Examination: [...] By: Estevan Martines MD, 10/15/2021 1:33 PM ASSESSMENT AND PLAN: Chest pain: Initial troponin within normal limits, EKG without evidence of acute ischemia or infarction, will admit to tele, continue to trend trop/EKG.Stress test performed stress testing performed in 2018 within normal limits. Plan likely cardiology consult in the morning regarding need for stress testing/medical optimization. Risk stratification labs pending. A.Fib: rate control with Toprol stroke risk reduction with Coumadin currently with supratherapeuticINR 4.6 currently holding Essential Hypertension: continue outpatient medications as indicated. Hyperlipidemia: Continue statin Hyperthyroidism methimazole Chronic kidney disease: Renal function around baseline: Renally dose medications avoid nephrotoxic medications avoid hypotension. GERD: Continue PPI - DVT prophylaxis: INR 4.6 - Diet/IVF: Cardiac - Code status: Full code - Disposition: Telemetry labs Spent 16 minutes discussing plan of care as well as pt wishes and desires regarding medical care. The patient verbalizes understanding and wishes to remain a full code at this time. Surrogate decision maker/MPoA is her Sister Shannon Vigil [phone]. The above plan of care was discussed with the patient in detail. An opportunity was provided for the patient to ask questions regarding the hospital stay and plan of care. All questions were answered. The patient understands and agrees. The patient was informed to ask the RN to contact me if any further questions or concerns. GUNNER BELL V 10/15/2021 documented in this encounter Consult Notes * HAI Dailey - 10/16/2021 9:02 AM CDTAssociated Order(s): IP CONSULT TO CARDIOLOGY Cardiology Consult for chest pain Primary Certified Scrum Master: Dr. Paredes at [facility] Dr. Robbins seeing here. History and Physical : Ana Maria Bobo is a 76-year-old female patient with past medical history significant for atrial flutter, A-fib anticoagulated with warfarin, mechanical St. Lj aortic valve (on warfarin), hypertension, obstructive sleep apnea compliant with CPAP. CAD, diabetes mellitus, HTN, HLD who presents for evaluation of chest pain. Patient states she began having sharp pain in her lower left chest 3 days ago. She says she had some heartburn and SOB with ambulation over the past couple of days. Patient notes she was sent over [facility] ED by her PCP, Dr. Webster. She mentions she was hospitalized at [place] 1 week ago for thesame symptoms and treated for diverticulitis. PCP's note from today reports she was having dizziness and had been taking Augmentin since being discharged from [place]. Her qa software tester is Dr. Paredes, last seen on 09/12/21. Patient complains of sharp chest pain, heart burn, and SOB. Patient denies nausea, vomiting, cough, or fever. Troponin negative. EKG shows AFIB with left bundle branch block. History of failed cardioversion in 2019, previously on sotalol and was placed on amiodarone. Underwent LHC in 2001 with minimal luminal irregularities. Prior lexiscan in 2019 with old anterior CO. Last echo 2020 in care everywhere, EF was 50-55%. Mild AI. Assessment and Plan: Chest pain Underwent LHC in 2001. Nonobstructive disease at that time. Presents with chest pain. Troponin negative. Suspect chest pain is related to volume overload. Check an echo. diuresis PAF Hx of cardioversion, sotalol therapy and now on amio. On warfarin INR is high at 4.3 History of mechanical AVR St. Lj mechanical aortic valve. Consult pharmacy for warfarin management. INR currently high at 4.3 HFpEF Check an echo. Patient appears to be in volume overload. Check BNP. Start IV lasix. Anemia Could be driving symptoms as well. Monitor closely.check iron studies. She denies obvious blood loss. Past Medical History: Diagnosis Date ??? Aneurysm [...] ??? Diabetes Father ??? Heart Mother ??? aspirin 324 mg Oral Once ??? gabapentin 300 mg Oral BID ??? lidocaine 1 patch Transdermal Q24H ??? lisinopril 40 mg Oral Daily ??? methIMAzole 5 mg Oral Daily ??? metoprolol succinate ER 25 mg Oral Daily ??? pantoprazole EC 20 mg Oral Daily ??? rosuvastatin 5 mg Oral Nightly at bedtime ??? venlafaxine XR 150 mg Oral Daily acetaminophen, ALPRAZolam, HYDROcodone-acetaminophen, ondansetron, polyethylene glycol Prior to Admission medications Medication Sig Start Date End Date Taking? Authorizing Provider acetaminophen (TYLENOL) 500 MG tablet Take 500 mg by mouth daily as needed. 08/17/20 Yes Doc Abstract albuterol sulfate HFA 108 (90 Base) MCG/ACT inhaler Inhale 2 puffs into the lungs every 6 (six) hours as needed for Wheezing. 10/10/21 Yes Sanjeev Webster, DO ALPRAZolam (XANAX) 0.25 MG tablet Take 1 tablet (0.25 mg total) by mouth 2 (two) times daily as needed for Anxiety. 10/10/21 Yes Sanjeev Webster, DO Cholecalciferol (VITAMIN D3) 25 MCG (1000 UT) Cap Take 1,000 Units by mouth daily. Yes Doc Abstract FEROSUL 325 (65 Fe) MG tablet Take 1 tablet by mouth once daily Patient taking differently: Take 325 mg by mouth daily with breakfast. 10/07/21 Yes Sanjeev Webster, DO fluticasone propionate 50 MCG/ACT nasal spray 2 sprays by Nasal route daily. Yes Doc Abstract furosemide 20 MG tablet Take 1 tab every other day. Patient taking differently: Take 20 mg by mouth every other day. Take 1 tab every other day. 05/24/21 Yes Sanjeev Webster, DO gabapentin 300 MG capsule Take 1 capsule (300 mg total) by mouth 2 (two) times daily. 07/16/20 Yes Juan Pablo Dominguez MD HYDROcodone-acetaminophen (NORCO) 10-325 MG tablet Take 1 tablet by mouth every 6 (six) hours as needed for Pain. Indications: Chronic Pain Do not take with alprazolam. No further refills until seen in office. 09/26/21 Yes Sanjeev Webster, DO lidocaine 5 % Apply pain patch to affected area. Change after 12 hours. 08/30/20 Yes Trina Hoffman NP LISINOPRIL 40 MG tablet Take 1 tablet by mouth once daily Patient taking differently: Take 40 mg by mouth daily. 03/11/21 Yes Sanjeev Webster, DO methIMAzole 5 MG tablet Take 1 tablet (5 mg total) by mouth daily. 08/30/21 Yes Panda Moreno MD metoprolol succinate ER 25 MG 24 hr tablet Take 1 tablet (25 mg total) by mouth daily. 09/02/21 Yes Sanjeev Webster DO omeprazole (PRILOSEC) 20 MG capsule Take 1 capsule by mouth once daily 10/07/21 Yes Sanjeev Webster, DO rosuvastatin 5 MG tablet Take 1 tablet (5 mg total) by mouth nightly at bedtime. 08/14/21 Yes Jonathan Webster, DO VENLAFAXINE XR 150 MG 24 hr capsule Take 1 capsule by mouth once daily Patient taking differently: Take 150 mg by mouth daily. 06/17/21 Yes Sanjeev Webster, DO warfarin (COUMADIN) 5 MG tablet Take 5 mg by mouth daily. Yes Doc Abstract Allergies Allergen Reactions ??? Atorvastatin Leg Pain Leg pain/cramps. Resolved after stopping. ??? Tape Contact Dermatitis ??? Bacitracin Other (see comment) ??? Benzalkonium Other (see comment) ??? Gramicidin Other (see comment) ??? Hydrocortisone Other (see comment) ??? Neomycin Other (see comment) ??? Polymyxin B Other (see comment) Review of Systems Constitutional: Negative for chills, diaphoresis, fever, malaise/fatigue and weight loss. HENT: Negative for hearing loss. Eyes: Negative for blurred vision and double vision. Respiratory: Positive for cough and shortness of breath. Negative for wheezing. Cardiovascular: Negative for chest pain, palpitations, [...] for depression and memory loss. Filed Vitals: 10/15/21 1738 10/15/21 1830 10/16/21 0006 10/16/21 0410 BP: (!) 139/99 115/55 124/66 104/72 Pulse: 89 95 102 101 Resp: Temp: 98.1 ??F (36.7 ??C) TempSrc: Oral SpO2: 96% 97% 96% Weight: Height: Physical Exam: Physical Exam Constitutional: Appearance: She is well-developed. Eyes: Pupils: Pupils are equal, round, and reactive to light. Neck: Vascular: No JVD. Cardiovascular: Rate and Rhythm: Normal rate and regular rhythm. Heart sounds: Normal heart sounds. No murmur heard. Pulmonary: Effort: Pulmonary effort is normal. Breath sounds: Decreased air movement present. Abdominal: General: Bowel sounds are normal. There is no distension. Palpations: Abdomen is soft. Tenderness: There is no abdominal tenderness. Musculoskeletal: General: Normal range of motion. Skin: General: Skin is warm and dry. Coloration: Skin is pale. Neurological: Mental Status: She is alert and oriented to person, place, and time. Recent Labs Lab 10/15/210 10/16/21415 WBC 5.1 4.3* RBC 3.05* 2.63* HGB 9.6* 8.2* HCT 32.0* 26.5* MCV 104.9* 100.8* MCH 31.5* 31.2* MCHC 30.0* 30.9* PLT 227 200 RDW 12.8 12.7 MPV 12.7* 12.7* PERNEU 67.0 46.0 PERLYM 16.3 28.8 PERMON 13.9 20.4 LYMC 0.83* 1.24 MONOC 0.71 0.88* EOSC 0.09 0.16 BASOC 0.04 0.04 DTYPE AUTOMATED DIFFERENTIAL AUTOMATED DIFFERENTIAL Recent Labs Lab 10/15/210 10/16/21415 NA 140 140 K 4.5 4.7 CL 111* 112* CO2 26.3 26.8 AGAP 2.7* 1.2* BUN 22* 23* CR 1.34* 1.08* BUNCREATININ 16.4 21.3 GLU 222* 86 CA 10.2* 9.6 TP 6.6 -- ALB 2.8* -- TBIL 0.5 -- ALKP 89 -- AST 36 -- ALT 40 -- Recent Labs Lab 10/15/21 1538 10/16/21 0416 INR 4.6 4.3 PTT 41.5* -- Recent Labs Lab 10/15/21 1320 10/16/21 0416 NA 140 140 K 4.5 4.7 CL 111* 112* CO2 26.3 26.8 BUN 22* 23* CR 1.34* 1.08* CA 10.2* 9.6 GLU 222* 86 AGAP 2.7* 1.2* TP 6.6 -- ALB 2.8* -- ALT 40 -- WBC 5.1 4.3* HGB 9.6* 8.2* PLT 227 200 Recent Labs Lab 10/15/21 1320 10/15/21 1458 10/15/21 1717 TROP 25 26 24 No results found for this visit on 10/15/21 (from the past 8736 hour(s)). No results found for this visit on 10/15/21 (from the past 8736 hour(s)). HAI DAILEY Cosigned by Tere Robbins MD at 10/16/2021 6:52 PM CDT documented in this encounter ED Notes * Marry De Dios RN - 10/15/2021 7:56 PM CDT Pt given after hour tray for dinner. * Mary Higgins MD - 10/15/2021 3:31 PM CDT [place], [place] EMERGENCY DEPARTMENT ENCOUNTER Chief Complaint Chief Complaint Patient presents with ??? Chest Pain History of Present Illness Provider at Bedside Date/Time Event User Comments 10/15/21 1300 Provider at Bedside Assessing Patient ITA NIETO -- Ana Mariadoc Bobo is a 89-akzc-gof-year-old female with a PMH of CAD, T2DM, Afib anticoagulated with Warfarin, HTN, and hyperlipidemia presents to the ED for evaluation of chest pain. The onset is gradual. The course is intermittent. The duration is 3-4 days. The patient was recommended by her PCP, Dr. Webster, to be evaluated in this ED. She reports midsternal chest pain and shortness of breath after walking 4-10 feet. She reports she has been belching more than usual recently. No nausea,no vomiting. No cough, no fever. She reports she was hospitalized at [place] 1 week ago for the same sxs and treated for diverticulitis. PCP: Dr. Webster Certified Scrum Master: Dr. Paredes Medical History ALLERGIES: Allergies Allergen Reactions ??? [...] Provider acetaminophen (TYLENOL) 500 MG tablet Take 500 mg by mouth daily as needed. 08/17/20 Yes Doc Abstract albuterol sulfate HFA 108 (90 Base) MCG/ACT inhaler Inhale 2 puffs into the lungs every 6 (six) hours as needed for Wheezing. 10/10/21 Yes Sanjeev Webster, DO ALPRAZolam (XANAX) 0.25 MG tablet Take 1 tablet (0.25 mg total) by mouth 2 (two) times daily as needed for Anxiety. 10/10/21 Yes Sanjeev Webster, DO Cholecalciferol (VITAMIN D3) 25 MCG (1000 UT) Cap Take 1,000 Units by mouth daily. Yes Doc Abstract FEROSUL 325 (65 Fe) MG tablet Take 1 tablet by mouth once daily Patient taking differently: Take 325 mg by mouth daily with breakfast. 10/07/21 Yes Sanjeev Webster, DO fluticasone propionate 50 MCG/ACT nasal spray 2 sprays by Nasal route daily. Yes Doc Abstract furosemide 20 MG tablet Take 1 tab every other day. Patient taking differently: Take 20 mg by mouth every other day. Take 1 tab every other day. 05/24/21 Yes Sanjeev Webster, DO gabapentin 300 MG capsule Take 1 capsule (300 mg total) by mouth 2 (two) times daily. 07/16/20 Yes Juan Pablo Dominguez MD HYDROcodone-acetaminophen (NORCO) 10-325 MG tablet Take 1 tablet by mouth every 6 (six) hours as needed for Pain. Indications: Chronic Pain Do not take with alprazolam. No further refills until seen in office. 09/26/21 Yes Sanjeev Webster, DO lidocaine 5 % Apply pain patch to affected area. Change after 12 hours. 08/30/20 Yes Trina Hoffman NP LISINOPRIL 40 MG tablet Take 1 tablet by mouth once daily Patient taking differently: Take 40 mg by mouth daily. 03/11/21 Yes Sanjeev Webster DO methIMAzole 5 MG tablet Take 1 tablet (5 mg total) by mouth daily. 08/30/21 Yes Panda Moreno MD metoprolol succinate ER 25 MG 24 hr tablet Take 1 tablet (25 mg total) by mouth daily. 09/02/21 Yes Sanjeev Webster DO omeprazole (PRILOSEC) 20 MG capsule Take 1 capsule by mouth once daily 10/07/21 Yes Sanjeev Webster DO rosuvastatin 5 MG tablet Take 1 tablet (5 mg total) by mouth nightly at bedtime. 08/14/21 Yes Jonathan Webster DO VENLAFAXINE XR 150 MG 24 hr capsule Take 1 capsule by mouth once daily Patient taking differently: Take 150 mg by mouth daily. 06/17/21 Yes Sanjeev Webster, DO warfarin (COUMADIN) 5 MG tablet Take 5 mg by mouth daily. Yes Doc Abstract PAST MEDICAL HISTORY: Past Medical History: Diagnosis Date ??? 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 Anxiety ??? Atrial flutter (CMS/HCC) ??? Cataract ??? Chronic anticoagulation due to mechanical heart valve ??? Chronic pain ??? Diabetes mellitus (CMS/HCC) ??? H/O mechanical aortic valve replacement 2004 ??? Hypertension PAST SURGICAL HISTORY: Past Surgical [...] Systems Review of Systems Constitutional: Negative for chills, fatigue and fever. HENT: Negative for ear discharge, ear pain and trouble swallowing. Eyes: Negative for pain and visual disturbance. Respiratory: Positive for shortness of breath. Negative for cough and chest tightness. Cardiovascular: Positive for chest pain. Negative for leg swelling. Gastrointestinal: Negative for abdominal pain, blood in stool and nausea. Endocrine: Negative for polydipsia and polyuria. Genitourinary: Negative for dysuria and hematuria. Musculoskeletal: Negative for arthralgias and gait problem. Skin: Negative for pallor and rash. Allergic/Immunologic: Negative for immunocompromised state. Neurological: Negative for facial asymmetry, speech difficulty, weakness and numbness. Psychiatric/Behavioral: Negative for hallucinations and suicidal ideas. See HPI for further details. All systems negative except as marked. Physical Exam Filed Vitals: 10/15/21 1537 10/15/21 1700 10/15/21 1738 10/15/21 1830 BP: 135/69 110/65 (!) 139/99 115/55 Pulse: 93 93 89 95 Resp: 17 21 25 20 Temp: TempSrc: SpO2: 96% 95% 96% 97% Weight: Height: Physical Exam Vitals and nursing note reviewed. Constitutional: Appearance: Normal appearance. She is normal weight. HENT: Head: Normocephalic and atraumatic. Right Ear: Tympanic membrane, ear canal and external ear normal. Left Ear: Tympanic membrane, ear canal and external ear normal. Mouth/Throat: Mouth: Mucous membranes are moist. Pharynx: Oropharynx is clear. Eyes: Extraocular Movements: Extraocular movements intact. Pupils: Pupils are equal, round, and reactive to light. Cardiovascular: Rate and Rhythm: Normal rate. Rhythm irregular. Pulses: Normal pulses. Heart sounds: No murmur heard. Pulmonary: Effort: Pulmonary effort is normal. No respiratory distress. Breath sounds: Normal breath sounds. No wheezing. Abdominal: General: Abdomen is flat. Bowel sounds are normal. There is no distension. Palpations: Abdomen is soft. Tenderness: There is no abdominal tenderness. Musculoskeletal: General: No swelling, tenderness or deformity. Cervical back: Normal range of motion and neck supple. No rigidity. Right lower leg: Edema present. Left lower leg: Edema present. Skin: General: Skin is warm and dry. Capillary Refill: Capillary refill takes less than 2 seconds. Neurological: General: No focal deficit present. Mental Status: She is alert and oriented to person, place, and time. Cranial Nerves: No cranial nerve deficit. Sensory: No sensory deficit. Psychiatric: Mood and Affect: Mood normal. Behavior: Behavior normal. Thought Content: Thought content normal. Diagnostic Studies / Procedures ELECTROCARDIOGRAMS: Results for orders placed or performed during the hospital encounter of 10/15/21 ECG 12 lead Narrative [facility] [address] Test Date: 2021-10-15 Pat Name: ANA MARIA BOBO Department: 41 Room: [facility] Gender: Female Stock Feeder: MAY : 1945 Requested By: CARRIE CALHOUN Order Number: [id number] Reading MD: Measurements Intervals Barto Rate: 108 P: MO: 0 QRS: -40 QRSD: 137 T: 115 QT: 349 QTc: 468 Interpretive Statements ATRIAL FIBRILLATION WITH RAPID VENTRICULAR RESPONSE LEFT AXIS DEVIATION [QRS AXIS < -30] LEFT BUNDLE BRANCH BLOCK [120+ ms QRS DURATION, 80+ ms Q/S IN V1/V2, 85+ ms R IN I/aVL/V5/V6] Compared to ECG 09/17/2021 20:23:49 Left-axis deviation now present Sinus rhythm no longer present First degree AV block no longer present ECG 12 lead Narrative [place] [place] Test Date: 2021-10-15 Pat Name: ANA MARIA BOBO Department: 41 Room: [facility] Gender: Female Stock Feeder: CAREN : 1945 Requested By: CARRIE CALHOUN Order Number: [id number] Reading MD: Measurements Intervals Barto Rate: 71 P: MO: 0 QRS: -28 QRSD: 145 T: 120 QT: 398 QTc: 434 Interpretive Statements ATRIAL FIBRILLATION LEFT BUNDLE BRANCH BLOCK Compared to ECG 10/15/2021 13:07:12 Left-axis deviation no longer present ECG [address] [facility] [address] Test Date: 2021-10-15 Pat Name: ANA MARIA BOBO Department: 41 Room: [facility] Gender: Female Stock Feeder: : 1945 Requested By: CARRIE CALHOUN Order Number: [id number] Reading MD: Measurements Intervals Barto Rate: 83 P: MO: 0 QRS: -27 QRSD: 145 T: 85 QT: 381 QTc: 448 Interpretive Statements ATRIAL FIBRILLATION LEFT BUNDLE BRANCH BLOCK Compared to ECG 10/15/2021 15:06:38 No significant changes LABORATORY STUDIES: Results for orders placed or performed during the hospital encounter of 10/15/21 CBC W/DIFF AUTOMATED Result Value Ref Range WBC 5.1 4.5 - 11.0 x10'3/uL RBC 3.05 (L) 4.20 - 5.40 x10'6/uL HGB 9.6 (L) 12.0 - 16.0 G/DL HCT 32.0 (L) 38.0 - 48.0 % MCV 104.9 (H) 81.0 - 99.0 FL MCH 31.5 (H) 27.0 - 31.0 PG MCHC 30.0 (L) 32.0 - 36.0 G/DL RDW 12.8 11.5 - 14.5 % PLT 227 130 - 400 x10'3/uL MPV 12.7 (H) 9.3 - 12.2 FL DIFFERENTIAL TYPE AUTOMATED DIFFERENTIAL NEUTROPHILS 67.0 % LYMPHOCYTES 16.3 % MONOCYTES 13.9 % EOSINOPHILS 1.8 % BASOPHILS 0.8 % IMMATURE GRANS 0.2 % ABS. NEUTROPHILS TOTAL 3.42 1.80 - 7.70 x10'3/uL ABS. LYMPHOCYTES 0.83 (L) 1.00 - 4.80 x10'3/uL ABS. MONOCYTES 0.71 0.24 - 0.86 x10'3/uL ABS. EOSINOPHILS 0.09 0.04 - 0.36 x10'3/uL ABS. BASOPHILS 0.04 0.01 - 0.08 x10'3/uL ABS. IMMATURE GRANULOCYTES 0.01 0.00 - 0.49 x10'3/uL COMPREHENSIVE METABOLIC PANEL Result Value Ref Range GLUCOSE 222 (H) 70 - 99 MG/DL BUN 22 (H) 7 - 18 MG/DL CREATININE S/P/B 1.34 (H) 0.55 - 1.02 MG/DL SODIUM 140 136 - 145 MMOL/L POTASSIUM 4.5 3.5 - 5.1 MMOL/L CHLORIDE S/P/B 111 (H) 100 - 108 MMOL/L CO2 26.3 21 - 32 MMOL/L CALCIUM 10.2 (H) 8.5 - 10.1 MG/DL BILIRUBIN TOTAL S/P/B 0.5 0.2 - 1.2 MG/DL TOTAL PROTEIN S/P/B 6.6 6.4 - 8.2 G/DL ALBUMIN S/P/B 2.8 (L) 3.4 - 5.0 G/DL AST 36 15 - 37 U/L ALT 40 14 - 55 U/L ALKALINE PHOSPHATASE S/P/B 89 50 - 136 U/L ANION GAP 2.7 (L) 5 - 15 MMOL/L BUN CREATININE RATIO 16.4 6 - 26 A/G RATIO 0.7 (L) 1.0 - 2.0 RATIO GFR ESTIMATE 41 (L) >90 ML/MIN/1.73 M2 TROPONIN, QUANT Result Value Ref Range TROPONIN I HIGH SENSITIVITY 25 <54 ng/L TROPONIN, QUANT Result Value Ref Range TROPONIN I HIGH SENSITIVITY 26 <54 ng/L TROPONIN, QUANT Result Value Ref Range TROPONIN I HIGH SENSITIVITY 24 <54 ng/L PARTIAL THROMBOPLASTIN TIME,PTT Result Value Ref Range PTT 41.5 (H) 25.1 - 36.5 SEC PROTIME/INR, VENOUS Result Value Ref Range Protime 52.1 (H) 10.2 - 12.9 SEC INR 4.6 D-DIMER, QUANTITATIVE Result Value Ref Range D-DIMER 638 (HH) 0 - 500 ng[FEU]/mL LIPASE Result Value Ref Range LIPASE 116 73 - 393 UNITS/L POCT glucose Result Value Ref Range GLUCOSE POC 149 (H) 70 - 99 mg/dL IMAGING STUDIES CTA CHEST Final Result by User, [email or web address] (10/15 3891) Examination: CTA CHEST Clinical history: Chest pain [...] PM USV NEGRITA DUPLEX LOW EXT RT Preliminary Result by User, [email or web address] (10/15 430) VENOUS DUPLEX IMAGING RIGHT LOWER EXTREMITY VASCULAR LAB Pat.Name: ANA MARIA BOBO Pat.ID: [id number] .Date: 10/15/2021 Exam Time: 4:09:00 PM Study Type:TOYA VS Venous Duplex Leg Rt Age: 3 1945,76Y Sex: FEMALE Sonogrphr: Diana Bronson RVT Pat. Stat.:Outpatient Room: ER History / Clinical: Chest pain. Calf injury, redness, edema. PMH: cad, dm, htn, ckd, hld, copd Procedures: [...] detected in the common femoral vein. CONCLUSION: ++++++++++++++++++++++++++++++++++++ FINDINGS: ++++++++++++++++++++++++++++++++++++ Unsigned José Kaiser M.D. XR CHEST PORTABLE Final Result by User, [email or web address] (10/16 1335) Examination: Chest 1 view portable History: Chest [...] By: Estevan Martines MD, 10/15/2021 1:33 PM ED Course / Medical Decision Making ED Course as of 10/15/21 4213 e Oct 15, [address] Bell accepts patient to tele obs for evaluation of her chest pain with exertion. Heart score is 7 [KH] ED Course User Index [KH] Mary Higgins MD Pulse Ox Interpretation: Saturation: 99 (%) Oxygen Delivery: RA Interpretation: No acute hypoxia at this time. Rhythm strip interpretation: Rhythm sinus rate 88. No ectopy. Data reviewed: All current, pertinent and timely studies (laboratory, imaging, and procedures) wereordered and results reviewed by Gunner Vargas MD unless otherwise noted. Triage notes and available nursing notes reviewed. Previous medical record reviewed when available. Repeat vital signs reviewed. Medications aspirin chewable tablet 324 mg (324 mg Oral Not Given 10/15/211536) ALPRAZolam (XANAX) tablet 0.25 mg (has no administration in time range) gabapentin (NEURONTIN) capsule 300 mg (300 mg Oral Given 10/15/212111) HYDROcodone-acetaminophen (NORCO) 10-325 MG tablet 1 tablet (1 tablet Oral Given 10/15/212111) lidocaine 4 % patch 1 patch (has no administration in time range) lisinopril (PRINIVIL) tablet 40 mg (has no administration in time range) methIMAzole (TAPAZOLE) tablet 5 mg (has no administration in time range) metoprolol succinate ER (TOPROL-XL) 24 hr tablet 25 mg (has no administration in time range) pantoprazole EC (PROTONIX) tablet 20 mg (has no administration in time range) venlafaxine XR (EFFEXOR-XR) 24 hr capsule 150 mg (has no administration in time range) acetaminophen (TYLENOL) tablet 650 mg (has no administration in time range) ondansetron (ZOFRAN) injection 4 mg (has no administration in time range) polyethylene glycol (GLYCOLAX) packet 17 g (has no administration in time range) rosuvastatin (CRESTOR) tablet 5 mg (5 mg Oral Not Given 10/15/212111) iopamidol (ISOVUE-370) 76 % injection 100 mL (100 mLs Intravenous Given 10/15/211736) Clinical Impression Chest pain (Primary) Dyspnea on exertion Current Discharge Medication List Disposition: Admit Follow-Up: Sanjeev Webster DO I, Iva Arambula, acting as a scribe, am personally taking down the notes in the presence of Nettie Higgins MD. Take no action on this note until reviewed and authenticated by the physician. Mary Higgins MD 10/15/21 1976 * Koffi Jenkins RN - 10/15/2021 1:07 PM CDT PT sent to ED by PCP with c/o chest pain. PT reports the pain started about 3 days ago. PT reports sharp 3/10 in her lower left chest. PT reports some heartburn over the past few days as well as shortness of breath with ambulation. PT report Hx of valve replacement. PT vitals stable at this time. PT A&OX4. * Ita Nieto PA-C - 10/15/2021 1:06 PM CDTSummary: chest pain [facility] [place], [place] EMERGENCY DEPARTMENT ENCOUNTER Medical Screening Examination 10/15/21 1:06 PM Chief Complaint : No chief complaint on file. HPI : Ana Maria Bobo is a 76-year-old female who presents c/o chest pain Vital Signs: There were no vitals filed for this visit. Physical exam: A brief physical exam was completed to facilitate/expedite patient care. Messer findings include: stable. No distress in triage. Plan: cardiac w/u ITA NIETO PA-C 10/15/2021 Ita Nieto PA-C 10/15/21 1307 Cosigned by Carrie Calhoun MD at 10/18/2021 7:06 AM CDT * Koffi Jenkins RN - 10/15/2021 1:02 PM CDT Bed: TG4 Expected date: Expected time: Means of arrival: Comments: Chest Pains documented in this encounter Plan of Treatment Upcoming Encounters Date Type Department Care Team (Late st Contact Info) Description 04/14/2024 2:00 PM MYSQL DEVELOPER Office Visit [facility] - [address], [address] [place] [address] Julio Pulido MD [address] [place] [address] documented as of this encounter Goals Goal Patient Goal Type Associated Problems Recent Progress Patient-Stated? [facility] - patient able to perform ADLs independently General On track(2023 9:49 AM CDT) Dianne Corona, RN Note: 12/17/23: Patient stated she is independent with ASL's. Establish Plan for Symptom Monitoring-CHF General On track(2023 11:36 AM MYSQL DEVELOPER) Dianne Corona, RN Note: Patient will [...] Symptom Monitoring-COPD General On track(2023 11:36 AM MYSQL DEVELOPER) Dianne Corona, RN Note: Patient will [...] Symptom Monitoring-DM General On track(2023 4:33 PM MYSQL DEVELOPER) Dianne Corona RN Note: Patient will [...] Symptom Monitoring-HTN General On track(2023 4:33 PM MYSQL DEVELOPER) Dianne Corona RN Note: Patient will monitor B/P several times per week , record readings and report to physician or CC if B/P consistently >130/80 Take your medications as prescribed. Follow up with your provider as scheduled. Take your blood pressure at least several times a week if able. documented as of this encounter Procedures Procedure Name Priority Date/Time Associated Diagnosis Comments BASIC METABOLIC PANEL Routine 10/21/2021 8:55 AM CDT CBC W/DIFF AUTOMATED Routine 10/21/2021 8:55 AM CDT PROTHROMBIN TIME, VENOUS Routine 10/21/2021 5:39 AM CDT PROTHROMBIN TIME, VENOUS Routine 10/20/2021 11:01 AM CDT BASIC METABOLIC PANEL Routine 10/20/2021 11:01 AM CDT CBC W/DIFF AUTOMATED Routine 10/20/2021 11:01 AM CDT PROTHROMBIN TIME, VENOUS Routine 10/19/2021 9:50 AM CDT BASIC METABOLIC PANEL Routine 10/19/2021 9:50 AM CDT CBC W/DIFF AUTOMATED Routine 10/19/2021 9:50 AM CDT XR CHEST PA+LAT Today 10/19/2021 7:08 AM CDT PRO-BRAIN NATRIURETIC PEPTIDE Routine 10/18/2021 10:40 PM CDT PATHOLOGY SLIDE CONSULT Routine 10/19/19 4:54 AM CDT PROTHROMBIN TIME, VENOUS Routine 10/18/2021 4:54 AM CDT BASIC METABOLIC PANEL Routine 10/18/2021 4:54 AM CDT CBC W/DIFF AUTOMATED Routine 10/18/2021 4:54 AM CDT TSH W/REFLEX Routine 10/17/2021 6:45 AM CDT PROTHROMBIN TIME, VENOUS Routine 10/17/2021 6:45 AM CDT BASIC METABOLIC PANEL Routine 10/17/2021 6:45 AM CDT CBC W/DIFF AUTOMATED Routine 10/17/2021 6:45 AM CDT THYROXINE, FREE (FT4) Routine 10/17/2021 6:45 AM CDT USE ECHOCARDIOGRAM W CON Today 10/16/2021 3:46 PM CDT POCT GLUCOSE - MELLO DOCKED DEVICE Routine 10/16/2021 11:59 AM CDT PRO-BRAIN NATRIURETIC PEPTIDE Routine 10/16/2021 10:55 AM CDT IRON SAT PANEL (IRON,IBC,%SAT) Routine 10/16/2021 10:55 AM CDT POCT GLUCOSE - MELLO DOCKED DEVICE Routine 10/16/2021 6:24 AM CDT PROTHROMBIN TIME, VENOUS Routine 10/16/2021 4:16 AM CDT BASIC METABOLIC PANEL Routine 10/16/2021 4:16 AM CDT CBC W/DIFF AUTOMATED Routine 10/16/2021 4:16 AM CDT MAGNESIUM Routine 10/16/2021 4:16 AM CDT POCT GLUCOSE - MELLO DOCKED DEVICE Routine 10/15/2021 8:54 PM CDT CTA CHEST STAT 10/15/2021 5:36 PM CDT TROPONIN, QUANT STAT 10/15/2021 5:17 PM CDT ECG 12-LEAD STAT 10/15/2021 5:09 PM CDT USV NEGRITA DUPLEX LOW EXT RT STAT 10/15/2021 4:25 PM CDT PARTIAL THROMBOPLASTIN TIME,PTT STAT 10/15/2021 3:38 PM CDT PROTHROMBIN TIME, VENOUS STAT 10/15/2021 3:38 PM CDT D-DIMER, QUANTITATIVE STAT 10/15/2021 3:38 PM CDT LIPASE STAT 10/15/2021 3:38 PM CDT ECG 12-LEAD STAT 10/15/2021 3:06 PM CDT TROPONIN, QUANT STAT 10/15/2021 2:58 PM CDT XR CHEST PORTABLE STAT 10/15/2021 1:3 2 PM CDT COMPREHENSIVE METABOLIC PANEL STAT 10/15/2021 1:20 PM CDT CBC W/DIFF AUTOMATED STAT 10/15/2021 1:20 PM CDT TROPONIN, QUANT STAT 10/15/2021 1:20 PM CDT ECG 12-LEAD STAT 10/15/2021 1:07 PM CDT documented in this encounter Results * (ABNORMAL) CBC W/DIFF AUTOMATED (10/21/2021 8:55 AM CDT) [facility] WBC 4.0(L) 4.5 - 11.0 x10'3/uL 10/21/2021 9:20 AM CDT [facility] RBC 2.83(L) 4.20 - 5.40 x10'6/uL 10/21/2021 9:20 AM CDT [facility] HGB 8.7(L) 12.0 - 16.0 G/DL 10/21/2021 9:20 AM CDT [facility] HCT 29.4(L) 38.0 - 48.0 % 10/21/2021 9:20 AM CDT [facility] MCV 103.9(H) 81.0 - 99.0 FL 10/21/2021 9:20 AM CDT [facility] MCH 30.7 27.0 - 31.0 PG 10/21/2021 9:20 AM CDT [facility] MCHC 29.6(L) 32.0 - 36.0 G/DL 10/21/2021 9:20 AM CDT [facility] RDW 12.4 11.5 - 14.5 % 10/21/2021 9:20 AM CDT [facility] PLT 162 130 - 400 x10'3/uL 10/21/2021 9:20 AM CDT [facility] MPV 13.1(H) 9.3 - 12.2 FL 10/21/2021 9:20 AM CDT [facility] DIFFERENTIAL TYPE AUTOMATED DIFFERENTIAL 10/21/2021 9:20 AM CDT [facility] NEUTROPHILS % 49.7 % 10/21/2021 9:20 AM CDT [facility] LYMPHOCYTES % 26.5 % 10/21/2021 9:20 AM CDT [facility] MONOCYTES % 18.0 % 10/21/2021 9:20 AM CDT [facility] EOSINOPHILS 4.5 % 10/21/2021 9:20 AM CDT [facility] BASOPHILS 1.0 % 10/21/2021 9:20 AM CDT [facility] IMMATURE GRANS % 0.3 % 10/22/19 9:20 AM CDT [facility] ABS. NEUTROPHILS TOTAL 1.99 1.80 - 7.70 x10'3/uL 10/21/2021 9:20 AM CDT [facility] ABS. LYMPHOCYTES 1.06 1.00 - 4.80 x10'3/uL 10/21/2021 9:20 AM CDT [facility] ABS. MONOCYTES 0.72 0.24 - 0.86 x10'3/uL 10/21/2021 9:20 AM CDT [facility] ABS. EOSINOPHILS 0.18 0.04 - 0.36 x10'3/uL 10/21/2021 9:20 AM CDT [facility] ABS. BASOPHILS 0.04 0.01 - 0.08 x10'3/uL 10/21/2021 9:20 AM CDT [facility] ABS. IMMATURE GRANULOCYTES 0.01 0.00 - 0.49 x10'3/uL 10/21/2021 9:20 AM CDT [facility] 10/21/2021 8:55 AM CDT Jonathan Rolle MD LABORATORY Final Result [facility] [address] [place] [address], [place] [phone] * (ABNORMAL) BASIC METABOLIC PANEL (10/21/2021 8:55 AM CDT) Pathologist [facility] GLUCOSE 84 70 - 99 MG/DL 10/21/2021 9:31 AM CDT [facility] BUN 47(H) 7 - 18 MG/DL 10/21/2021 9:31 AM CDT [facility] CREATININE S/P/B 1.26(H) 0.55 - 1.02 MG/DL 10/21/2021 9:31 AM CDT [facility] SODIUM S/P/B 142 136 - 145 MMOL/L 10/21/2021 9:31 AM CDT [facility] POTASSIUM S/P/B 5.1 3.5 - 5.1 MMOL/L 10/21/2021 9:31 AM CDT [facility] CHLORIDE S/P/B 111(H) 100 - 108 MMOL/L 10/21/2021 9:31 AM CDT [facility] CO2 28.8 21 - 32 MMOL/L 10/21/2021 9:31 AM CDT [facility] CALCIUM S/P/B 9.9 8.5 - 10.1 MG/DL 10/21/2021 9:31 AM CDT [facility] ANION GAP 2.2(L) 5 - 15 MMOL/L 10/21/2021 9:31 AM CDT [facility] BUN CREATININE RATIO 37.3(H) 6 - 26 10/21/2021 9:31 AM CDT [facility] GFR ESTIMATE 44(L) >90 ML/MIN/1.7 3 M2 10/21/2021 9:31 AM CDT [facility] Comment: NOTE: eGFR is not calculated for patients <18 years of age. This is an estimated GFR calculation using the new CKD EPI creatinine equation without race and so does not require a correction factor for race. This estimated GFR should not be used for calculating drug doses. 10/21/2021 8:55 AM CDT Jonathan Rolle MD LABORATORY Final Result Performing Organization Address [facility] Co de Phone Number [facility] [address] [place] [address], * (ABNORMAL) PROTIME/INR, VENOUS (10/21/2021 5:39 AM CDT) PROTIME 38.2(H) 10.2 - 12.9 SEC 10/21/2021 6:47 AM CDT [facility] INR 3.3 10/21/2021 6:47 AM CDT [facility] Comment: Recommended INR Therapeutic Goals: ??2.0-3.0 Routine Therapy ??2.5-3.5 Mechanical Prosthetic Valves (High Risk) 10/21/2021 5:39 AM CDT Gunner Vargas MD LABORATORY Final Result Performing Organization Address City/[facility]/ZIP Co de Phone Number [facility] [address] [place] [phone], [place] [phone] * (ABNORMAL) BASIC METABOLIC PANEL (10/20/2021 11:01 AM CDT) GLUCOSE 133(H) 70 - 99 MG/DL 10/20/2021 11:33 AM T [facility] BUN 49(H) 7 - 18 MG/DL 10/20/2021 11:33 AM T [facility] CREATININE S/P/B 1.68(H) 0.55 - 1.02 MG/DL 10/20/2021 11:33 AM T [facility] SODIUM S/P/B 139 136 - 145 MMOL/L 10/20/2021 11:33 AM T [facility] POTASSIUM S/P/B 4.9 3.5 - 5.1 MMOL/L 10/20/2021 11:33 AM T [facility] CHLORIDE S/P/B 107 100 - 108 MMOL/L 10/20/2021 11:33 AM T [facility] CO2 29.8 21 - 32 MMOL/L 10/20/2021 11:33 AM T [facility] CALCIUM S/P/B 9.7 8.5 - 10.1 MG/DL 10/20/2021 11:33 AM T [facility] ANION GAP 2.2(L) 5 - 15 MMOL/L 10/20/2021 11:33 AM T [facility] BUN CREATININE RATIO 29.2(H) 6 - 26 10/20/2021 11:33 AM [facility] GFR ESTIMATE 31(L) >90 ML/MIN/1.7 3 M2 10/20/2021 11:33 AM [facility] Comment: NOTE: eGFR is not calculated for patients <18 years of age. This is an estimated GFR calculation using the new CKD EPI creatinine equation without race and so does not require a correction factor for race. This estimated GFR should not be used for calculating drug doses. 10/20/2021 11:0 1 AM CDT Jonathan Rolle MD LABORATORY Final Result [facility] [address] [place] [address], * (ABNORMAL) CBC W/DIFF AUTOMATED (10/20/2021 11:01 AM CDT) WBC 5.1 4.5 - 11.0 x10'3/uL 10/20/2021 11:23 AM CDT [facility] RBC 2.89(L) 4.20 - 5.40 x10'6/uL 10/20/2021 11:23 AM CDT [facility] HGB 9.2(L) 12.0 - 16.0 G/DL 10/20/2021 11:23 AM CDT [facility] HCT 30.3(L) 38.0 - 48.0 % 10/20/2021 11:23 AM CDT [facility] MCV 104.8(H) 81.0 - 99.0 FL 10/20/2021 11:23 AM CDT [facility] MCH 31.8(H) 27.0 - 31.0 PG 10/20/2021 11:23 AM CDT [facility] MCHC 30.4(L) 32.0 - 36.0 G/DL 10/20/2021 11:23 AM CDT [facility] RDW 12.5 11.5 - 14.5 % 10/20/2021 11:23 AM CDT [facility] PLT 193 130 - 400 x10'3/uL 10/20/2021 11:23 AM CDT [facility] MPV 13.1(H) 9.3 - 12.2 FL 10/20/2021 11:23 AM CDT [facility] DIFFERENTIAL TYPE AUTOMATED DIFFERENTIAL 10/20/2021 11:23 AM CDT [facility] NEUTROPHILS % 63.6 % 10/20/2021 11:23 AM T [facility] LYMPHOCYTES % 13.4 % 10/20/2021 11:23 AM T [facility] MONOCYTES % 17.9 % 10/20/2021 11:23 AM CDT [facility] EOSINOPHILS 4.1 % 10/20/2021 11:23 AM CDT [facility] BASOPHILS 0.8 % 10/20/2021 11:23 AM T [facility] IMMATURE GRANS % 0.2 % 10/21/19 11:23 AM T [facility] ABS. NEUTROPHILS TOTAL 3.24 1.80 - 7.70 x10'3/uL 10/20/2021 11:23 AM CDT [facility] ABS. LYMPHOCYTES 0.68(L) 1.00 - 4.80 x10'3/uL 10/20/2021 11:23 AM CDT [facility] ABS. MONOCYTES 0.91(H) 0.24 - 0.86 x10'3/uL 10/20/2021 11:23 AM T [facility] ABS. EOSINOPHILS 0.21 0.04 - 0.36 x10'3/uL 10/20/2021 11:23 AM T [facility] ABS. BASOPHILS 0.04 0.01 - 0.08 x10'3/uL 10/20/2021 11:23 AM T [facility] ABS. IMMATURE GRANULOCYTES 0.01 0.00 - 0.49 x10'3/uL 10/20/2021 11:23 AM [facility] 10/20/2021 11:0 1 AM CDT Jonathan Rolle MD LABORATORY Final Result [facility] [address] [place] [id number], [place] [phone] * (ABNORMAL) PROTIME/INR, VENOUS (10/20/2021 11:01 AM CDT) PROTIME 38.5(H) 10.2 - 12.9 SEC 10/20/2021 12:18 PM CDT [facility] INR 3.3 10/20/2021 12:18 PM CDT [facility] Comment: Recommended INR Therapeutic Goals: ??2.0-3.0 Routine Therapy ??2.5-3.5 Mechanical Prosthetic Valves (High Risk) 10/20/2021 11:0 1 AM CDT Gunner Vargas MD LABORATORY Final Result Performing Organization Address City/[facility] Co de Phone Number [facility] [address] [place] [id number], [place] [phone] * (ABNORMAL) PROTIME/INR, VENOUS (10/19/2021 9:50 AM CDT) PROTIME 33.7(H) 10.2 - 12.9 SEC 10/19/2021 10:46 AM CDT [facility] INR 2.9 10/19/2021 10:46 AM CDT [facility] Comment: Recommended INR Therapeutic Goals: ??2.0-3.0 Routine Therapy ??2.5-3.5 Mechanical Prosthetic Valves (High Risk) 10/19/2021 9:50 AM CDT us Gunner Vargas MD LABORATORY Final Result [facility] [address] [place] [id number], * (ABNORMAL) BASIC METABOLIC PANEL (10/19/2021 9:50 AM CDT) [facility] GLUCOSE 90 70 - 99 MG/DL 10/19/2021 10:19 AM CDT [facility] BUN 44(H) 7 - 18 MG/DL 10/19/2021 10:19 AM CDT [facility] CREATININE S/P/B 1.52(H) 0.55 - 1.02 MG/DL 10/19/2021 10:19 AM CDT [facility] SODIUM S/P/B 142 136 - 145 MMOL/L 10/19/2021 10:19 AM CDT [facility] POTASSIUM S/P/B 4.8 3.5 - 5.1 MMOL/L 10/19/2021 10:19 AM CDT [facility] CHLORIDE S/P/B 110(H) 100 - 108 MMOL/L 10/19/2021 10:19 AM CDT [facility] CO2 29.0 21 - 32 MMOL/L 10/19/2021 10:19 AM CDT [facility] CALCIUM S/P/B 9.8 8.5 - 10.1 MG/DL 10/19/2021 10:19 AM CDT [facility] ANION GAP 3.0(L) 5 - 15 MMOL/L 10/19/2021 10:19 AM CDT [facility] BUN CREATININE RATIO 28.9(H) 6 - 26 10/19/2021 10:19 AM CDT [facility] GFR ESTIMATE 35(L) >90 ML/MIN/1.7 3 M2 10/19/2021 10:19 AM CDT [facility] Comment: NOTE: eGFR is not calculated for patients <18 years of age. This is an estimated GFR calculation using the new CKD EPI creatinine equation without race and so does not require a correction factor for race. This estimated GFR should not be used for calculating drug doses. 10/19/2021 9:50 AM CDT Jonathan Rolle MD LABORATORY Final Result [facility] [address] [place] [address], [place] [phone] * (ABNORMAL) CBC W/DIFF AUTOMATED (10/19/2021 9:50 AM CDT) WBC 4.6 4.5 - 11.0 x10'3/uL 10/19/2021 10:08 AM CDT [facility] RBC 2.89(L) 4.20 - 5.40 x10'6/uL 10/19/2021 10:08 AM CDT [facility] HGB 9.2(L) 12.0 - 16.0 G/DL 10/19/2021 10:08 AM CDT [facility] HCT 30.4(L) 38.0 - 48.0 % 10/19/2021 10:08 AM CDT [facility] MCV 105.2(H) 81.0 - 99.0 FL 10/19/2021 10:08 AM CDT [facility] MCH 31.8(H) 27.0 - 31.0 PG 10/19/2021 10:08 AM CDT [facility] MCHC 30.3(L) 32.0 - 36.0 G/DL 10/19/2021 10:08 AM CDT [facility] RDW 12.5 11.5 - 14.5 % 10/19/2021 10:08 AM CDT [facility] PLT 185 130 - 400 x10'3/uL 10/19/2021 10:08 AM T [facility] MPV 12.8(H) 9.3 - 12.2 FL 10/19/2021 10:08 AM CDT [facility] DIFFERENTIAL TYPE AUTOMATED DIFFERENTIAL 10/19/2021 10:28 AM CDT [facility] NEUTROPHILS % 53.6 % 10/19/2021 10:28 AM CDT [facility] LYMPHOCYTES % 23.6 % 10/19/2021 10:28 AM CDT [facility] MONOCYTES % 17.6 % 10/19/2021 10:28 AM CDT [facility] EOSINOPHILS 3.9 % 10/19/2021 10:28 AM CDT [facility] BASOPHILS 0.9 % 10/19/2021 10:28 AM CDT [facility] IMMATURE GRANS % 0.4 % 10/20/19 10:28 AM CDT [facility] ABS. NEUTROPHILS TOTAL 2.47 1.80 - 7.70 x10'3/uL 10/19/2021 10:28 AM CDT [facility] ABS. LYMPHOCYTES 1.09 1.00 - 4.80 x10'3/uL 10/19/2021 10:28 AM CDT [facility] ABS. MONOCYTES 0.81 0.24 - 0.86 x10'3/uL 10/19/2021 10:28 AM CDT [facility] ABS. EOSINOPHILS 0.18 0.04 - 0.36 x10'3/uL 10/19/2021 10:28 AM CDT [facility] ABS. BASOPHILS 0.04 0.01 - 0.08 x10'3/uL 10/19/2021 10:28 AM CDT [facility] ABS. IMMATURE GRANULOCYTES 0.02 0.00 - 0.49 x10'3/uL 10/19/2021 10:28 AM CDT [facility] RBC MORPHOLOGY SLIDE REVIEWED 2021 10:28 AM CDT [facility] MACRO 1+ 10/19/2021 10:28 AM CDT [facility] PLT EST. ADEQUATE 10/19/2021 10:28 AM CDT [facility] 10/19/2021 9:50 AM CDT Jonathan Rolle MD LABORATORY Final Result Performing Organization Address City/State/[facility] Co de Phone Number [facility] [address] [place] [address], * XR CHEST PA+LAT (10/19/2021 7:08 AM CDT) Anatomical Region Laterality Modality Chest Radiographic Jennifer ging 10/19/2021 7:10 AM CDT Impressions 10/19/2021 7:12 AM CDT IMPRESSION: ======== 1. ??Developing opacity at the anterior left lung base may be infiltrate or atelectasis. ??Stable interval appearance of the chest otherwise. Referred By: ?? Interpreted By: Quoc Wilkinson MD, 10/19/2021 7:10 AM Narrative 10/19/2021 7:12 AM CDT Examination: Chest x-ray 2 view Exam Date/Time: 10/19/2021 7:00 AM Reason For Exam: ??chf ?? Comparison: 10/15/2021 chest radiograph Technique: PA and lateral views of the chest were obtained. Findings: Heart size prominent but stable from prior study. ??Post sternotomy changes again seen including fractured wires. ??Atherosclerotic aorta. ??Increased AP dimensional airspace and flattening of diaphragms. ??Pulmonary vascularity stable from prior study. ??Interval worsening of opacities at the lung bases more so on the left obscuring diaphragm shadow on frontal view. ??Upper lungs clear. ======== Procedure Note Quoc Wilkinson MD - 10/19/2021 Examination: Chest x-ray 2 view Exam Date/Time: 10/19/2021 7:00 AM Reason For Exam: chf Comparison: 10/15/2021 chest radiograph Technique: PA and lateral views of the chest were obtained. Findings: Heart size prominent but stable from prior study. Poststernotomy changes again seen including fractured wires. Atheroscleroticaorta. Increased AP dimensional airspace and flattening of diaphragms.Pulmonary vascularity stable from prior study. Interval worsening ofopacities at the lung bases more so on the left obscuring diaphragm shadowon frontal view. Upper lungs clear. ======== IMPRESSION: ======== 1. Developing opacity at the anterior left lung base may be infiltrate oratelectasis. Stable interval appearance of the chest otherwise. Referred By: Interpreted By: Quoc Wlikinson MD, 10/19/2021 7:10 AM Tere Robbins MD GENERAL IMAGING Final Result * (ABNORMAL) PRO-BRAIN NATRIURETIC PEPTIDE (10/18/2021 10:40 PM CDT) PRO-B TYPE NATRIURETIC PEPTIDE 9,752(H) <450 PG/ML 10/18/2021 11:10 PM CDT [facility] Comment: CUT POINTS ESTABLISHED BY [...] OF 89% AND 72% FOR ACUTE CHF. 10/18/2021 10:4 0 PM CDT Tere Robbins MD LABORATORY Final Result Performing Organization Address City/[facility] Co de Phone Number [facility] [address] [place] [address], [place] [phone] * PATHOLOGY SLIDE CONSULT (10/18/2021 4:54 AM CDT) CBC PATHOLOGIST COMMENT PATHOLOGIST REVIEW ADDED TO REPORT 10/18/2021 6:21 PM CDT [facility] Comment: [id number] MODERATE MACROCYTIC ANEMIA. INCREASED MCV. CAN BE SECONDARY TO VITAMIN B12 DEFICIENCY, FOLATE DEFICIENCY, ALCOHOL ABUSE, LIVER DISEASE, MYELODYSPLASIA, RETICULOCYTOSIS AND HYPOTHYROIDISM. REVIEWED BY YANCI PIPER M.D., PATHOLOGIST 10/18/2021 4:54 AM CDT Gunner Vargas MD PATHOLOGY/CYTOLOGY ORDERABLE S Final Result Performing Organization Address City/[facility]/ZIP Co de Phone Number [facility] [address] [place] [address], [place] [phone] * (ABNORMAL) PROTIME/INR, VENOUS (10/18/2021 4:54 AM CDT) PROTIME 28.5(H) 10.2 - 12.9 SEC 10/18/2021 5:08 AM CDT [facility] INR 2.5 10/18/2021 5:08 AM CDT [facility] Comment: Recommended INR Therapeutic Goals: ??2.0-3.0 Routine Therapy ??2.5-3.5 Mechanical Prosthetic Valves (High Risk) 10/18/2021 4:54 AM CDT us Gunner Vargas MD LABORATORY Final Result [facility] [address] [place] [address], [place] [phone] * (ABNORMAL) BASIC METABOLIC PANEL (10/18/2021 4:54 AM CDT) GLUCOSE 77 70 - 99 MG/DL 10/18/2021 5:24 AM CDT [facility] BUN 36(H) 7 - 18 MG/DL 10/18/2021 5:24 AM CDT [facility] CREATININE S/P/B 1.44(H) 0.55 - 1.02 MG/DL 10/18/2021 5:24 AM CDT [facility] SODIUM S/P/B 141 136 - 145 MMOL/L 10/18/2021 5:24 AM CDT [facility] POTASSIUM S/P/B 5.1 3.5 - 5.1 MMOL/L 10/18/2021 5:24 AM CDT [facility] Comment:SLIGHT HEMOLYSIS, RE SULT MAY BE AFFECTED. CHLORIDE S/P/B 110(H) 100 - 108 MMOL/L 10/18/2021 5:24 AM CDT [facility] CO2 27.2 21 - 32 MMOL/L 10/18/2021 5:24 AM CDT [facility] CALCIUM S/P/B 9.7 8.5 - 10.1 MG/DL 10/18/2021 5:24 AM CDT [facility] ANION GAP 3.8(L) 5 - 15 MMOL/L 10/18/2021 5:24 AM CDT [facility] BUN CREATININE RATIO 25.0 6 - 26 10/18/2021 5:24 AM CDT [facility] GFR ESTIMATE 37(L) >90 ML/MIN/1.7 3 M2 10/18/2021 5:24 AM CDT [facility] Comment: NOTE: eGFR is not calculated for patients <18 years of age. This is an estimated GFR calculation using the new CKD EPI creatinine equation without race and so does not require a correction factor for race. This estimated GFR should not be used for calculating drug doses. 10/18/2021 4:54 AM CDT Jonathan Rolle MD LABORATORY Final Result [facility] [address] [place] [address], [place] [phone] * (ABNORMAL) CBC W/DIFF AUTOMATED (10/18/2021 4:54 AM CDT) WBC 4.7 4.5 - 11.0 x10'3/uL 10/18/2021 5:31 AM CDT [facility] RBC 2.78(L) 4.20 - 5.40 x10'6/uL 10/18/2021 5:31 AM CDT [facility] HGB 9.0(L) 12.0 - 16.0 G/DL 10/18/2021 5:31 AM CDT [facility] HCT 29.8(L) 38.0 - 48.0 % 10/18/2021 5:31 AM CDT [facility] MCV 107.2(H) 81.0 - 99.0 FL 10/18/2021 5:31 AM CDT [facility] MCH 32.4(H) 27.0 - 31.0 PG 10/18/2021 5:31 AM CDT [facility] MCHC 30.2(L) 32.0 - 36.0 G/DL 10/18/2021 5:31 AM CDT [facility] RDW 12.6 11.5 - 14.5 % 10/18/2021 5:31 AM CDT [facility] PLT 188 130 - 400 x10'3/uL 10/18/2021 5:31 AM CDT [facility] MPV 12.8(H) 9.3 - 12.2 FL 10/18/2021 5:31 AM CDT [facility] DIFFERENTIAL TYPE MANUAL DIFFERENTIAL 10/18/2021 6:17 AM CDT [facility] SEG NEUTROPHILS 49 % 6:17 AM CDT [facility] LYMPHOCYTES 34 % 10/18/2021 6:17 AM CDT [facility] MONOCYTES 11 % 10/18/2021 6:17 AM CDT [facility] EOSINOPHILS 5 % 10/18/2021 6:17 AM CDT [facility] BASOPHILS 1 % 10/18/2021 6:17 AM CDT [facility] ABS. NEUTROPHILS CALCULATED 2.30 1.80 - 7.70 x10'3/uL 10/18/2021 6:17 AM CDT [facility] ABS.LYMPHOCYTES CALCULATED 1.60 1.00 - 4.80 x10'3/uL 10/18/2021 6:17 AM CDT [facility] ABS. MONOCYTES CALCULATED 0.52 0.24 - 0.86 x10'3/uL 10/18/2021 6:17 AM CDT [facility] ABS. EOSINOPHIL CALCULATED 0.24 0.04 - 0.36 x10'3/uL 10/18/2021 6:17 AM CDT [facility] ABS. BASOPHIL CALCULATED 0.05 0.01 - 0.08 x10'3/uL 10/18/2021 6:17 AM CDT [facility] RBC MORPHOLOGY SLIDE REVIEWED 2021 6:17 AM CDT [facility] POIKLO 1+ 10/18/2021 6:17 AM CDT [facility] MACRO 1+ 10/18/2021 6:17 AM CDT [facility] PLT EST. ADEQUATE 10/18/2021 6:17 AM CDT [facility] PATHOLOGIST COMMENT PATHOLOGIST REVIEW TO FOLLOW. 10/18/2021 6:17 AM CDT [facility] 10/18/2021 4:54 AM CDT Jonathan Rolle MD LABORATORY Final Result [facility] [address] [place] [address], [place] [phone] * (ABNORMAL) THYROXINE, FREE (FT4) (10/17/2021 6:45 AM CDT) FREE T4 4.87(H) 0.76 - 1.46 NG/DL 10/17/2021 8:08 AM CDT [facility] 10/17/2021 6:45 AM CDT Gunner Vargas MD LABORATORY Final Result [facility] [address] [place] [address], [place] [address], * (ABNORMAL) PROTIME/INR, VENOUS (10/17/2021 6:45 AM CDT) Pathologist [facility] PROTIME 32.9(H) 10.2 - 12.9 SEC 10/17/2021 8:11 AM CDT [facility] INR 2.9 10/17/2021 8:11 AM CDT [facility] Comment: Recommended INR Therapeutic Goals: ??2.0-3.0 Routine Therapy ??2.5-3.5 Mechanical Prosthetic Valves (High Risk) 10/17/2021 6:45 AM CDT Gunner Vargas MD LABORATORY Final Result Performing Organization Address City/[facility]/ZIP Co de Phone Number [facility] [address] [place] [phone], * (ABNORMAL) TSH W/REFLEX (10/17/2021 6:45 AM CDT) [facility] TSH <0.005(L) 0.358 - 3.74 uIU/ML 10/17/2021 7:48 AM CDT [facility] Comment: HIGH DOSES OF BIOTIN MAY INTERFERE WITH THIS TEST RESULT. CORRELATION TO CLINICAL HISTORY AND PRESENTATION RECOMMENDED. 10/17/2021 6:45 AM CDT Jonathan Rolle MD LABORATORY Final Result [facility] [address] [place] [phone], * (ABNORMAL) BASIC METABOLIC PANEL (10/17/2021 6:45 AM CDT) [facility] GLUCOSE 91 70 - 99 MG/DL 10/17/2021 7:48 AM T [facility] BUN 29(H) 7 - 18 MG/DL 10/17/2021 7:48 AM T [facility] CREATININE S/P/B 1.39(H) 0.55 - 1.02 MG/DL 10/17/2021 7:48 AM T [facility] SODIUM S/P/B 141 136 - 145 MMOL/L 10/17/2021 7:48 AM T [facility] POTASSIUM S/P/B 4.8 3.5 - 5.1 MMOL/L 10/17/2021 7:48 AM T [facility] CHLORIDE S/P/B 112(H) 100 - 108 MMOL/L 10/17/2021 7:48 AM T [facility] CO2 29.7 21 - 32 MMOL/L 10/17/2021 7:48 AM T [facility] CALCIUM S/P/B 10.0 8.5 - 10.1 MG/DL 10/17/2021 7:48 AM T [facility] ANION GAP NOT CALCULATED 5 - 15 MMOL/L 10/17/2021 7:48 AM T [facility] BUN CREATININE RATIO 20.9 6 - 26 10/17/2021 7:48 AM T [facility] GFR ESTIMATE 39(L) >90 ML/MIN/1. 73 M2 10/17/2021 7:48 AM T [facility] Comment: NOTE: eGFR is not calculated for patients <18 years of age. This is an estimated GFR calculation using the new CKD EPI creatinine equation without race and so does not require a correction factor for race. This estimated GFR should not be used for calculating drug doses. 10/17/2021 6:45 AM CDT Jonathan Rolle MD LABORATORY Final Result [facility] [address] [place] [address], * (ABNORMAL) CBC W/DIFF AUTOMATED (10/17/2021 6:45 AM CDT) [facility] WBC 4.2(L) 4.5 - 11.0 x10'3/uL 10/17/2021 7:24 AM CDT [facility] RBC 2.77(L) 4.20 - 5.40 x10'6/uL 10/17/2021 7:24 AM CDT [facility] HGB 8.9(L) 12.0 - 16.0 G/DL 10/17/2021 7:24 AM CDT [facility] HCT 29.0(L) 38.0 - 48.0 % 10/17/2021 7:24 AM CDT [facility] MCV 104.7(H) 81.0 - 99.0 FL 10/17/2021 7:24 AM CDT [facility] MCH 32.1(H) 27.0 - 31.0 PG 10/17/2021 7:24 AM CDT [facility] MCHC 30.7(L) 32.0 - 36.0 G/DL 10/17/2021 7:24 AM CDT [facility] RDW 12.8 11.5 - 14.5 % 10/17/2021 7:24 AM CDT [facility] PLT 202 130 - 400 x10'3/uL 10/17/2021 7:24 AM CDT [facility] MPV 13.1(H) 9.3 - 12.2 FL 10/17/2021 7:24 AM CDT [facility] DIFFERENTIAL TYPE AUTOMATED DIFFERENTIAL 10/17/2021 7:24 AM CDT [facility] NEUTROPHILS % 44.8 % 10/17/2021 7:24 AM CDT [facility] LYMPHOCYTES % 28.0 % 10/17/2021 7:24 AM CDT [facility] MONOCYTES % 21.8 % 10/17/2021 7:24 AM CDT [facility] EOSINOPHILS 4.3 % 10/17/2021 7:24 AM CDT [facility] BASOPHILS 0.9 % 10/17/2021 7:24 AM CDT [facility] IMMATURE GRANS % 0.2 % 10/18/19 7:24 AM CDT [facility] ABS. NEUTROPHILS TOTAL 1.89 1.80 - 7.70 x10'3/uL 10/17/2021 7:24 AM CDT [facility] ABS. LYMPHOCYTES 1.18 1.00 - 4.80 x10'3/uL 10/17/2021 7:24 AM CDT [facility] ABS. MONOCYTES 0.92(H) 0.24 - 0.86 x10'3/uL 10/17/2021 7:24 AM CDT [facility] ABS. EOSINOPHILS 0.18 0.04 - 0.36 x10'3/uL 10/17/2021 7:24 AM CDT [facility] ABS. BASOPHILS 0.04 0.01 - 0.08 x10'3/uL 10/17/2021 7:24 AM CDT [facility] ABS. IMMATURE GRANULOCYTES 0.01 0.00 - 0.49 x10'3/uL 10/17/2021 7:24 AM CDT [facility] 10/17/2021 6:45 AM CDT Jonathan Rolle MD LABORATORY Final Result [facility] [address] [place] [address], * USE ECHOCARDIOGRAM W CON (10/16/2021 3:46 PM CDT) Anatomical Region Laterality Modality NA Echocardiogram 10/16/2021 3:01 PM CDT Narrative 10/16/2021 6:42 PM CDT ?Echocardiography Report Pat.Name: ??ANA MARIA BOBO HANNA ?Pat.ID: ?[id number] ? St.Date: ?? 10/16/2021 ? Exam Time: 3:01:00 PM ? Study Type:ECHO WITH CARDIAC DOPPLER COMP Height: ?64in ? Weight: ?183.62lb ?BSA: ? 1.89 m2 ?Age: ??1945,76Y ? Sex: ? FEMALE ? BP: ?115/57 ?HR: ?91 bpm ? Sonogrphr: Becky Martel RDCS ?Pat. Stat.:Inpatient ? Room: ?U04 ? Reason for Study: Aortic valve replacement, Congestive heart failure, Dyspnea on exertion, Murmur History / Clinical: Chest pain. Calf injury, redness, edema. PMH, cad, dm, htn, ckd, hld, copd Procedures: ??2D, M-mode, Doppler, Color Flow, Definity was used to enhance endocardial definition., The study quality is technically difficult. Race: ?W ? ++++++++++++++++++++++++++++++++++++ SUMMARY: ++++++++++++++++++++++++++++++++++++ The left ventricular size is normal. Estimated left ventricular ejection fraction is 40-45%. Moderate concentric left ventricular hypertrophy. Left ventricular diastolic function is abnormal (grade 2 - pseudonormal pattern). ? ? ?Moderate global hypokinesis is noted. The right [...] Moderate mitral regurgitation. ++++++++++++++++++++++++++++++++++++ FINDINGS: ++++++++++++++++++++++++++++++++++++ LV: ? The left ventricular size is normal. Estimated left ?ventricular ??ejection fraction is 40-45%. Moderate ?concentric ??left ventricular hypertrophy. Left ventricular ?diastolic ??function is abnormal (grade 2 - pseudonormal ?pattern). WM: ? Moderate global hypokinesis is noted. RV: ? The right ventricular size is normal. Right ventricular ?systolic ??function is moderately depressed. IVS: ?No evidence of ventricular septal defect. LA: ? The left atrial size is mildly enlarged. The left atrial ?volume ??is mildly increased (34- 41ml/M2). RA: ? Right atrial size is mildly enlarged. IAS: ?Atrial septum appears intact. DENICE: ? No evidence of pericardial effusion. AO: ? Normal aortic root. PA: ? Estimated right atrial pressure of 15 mmHg. SVn: ?Inferior vena cava is mildly enlarged. Inferior vena cava ?shows ??<50% collapse with respiration consistent with ?elevated ??right atrial pressure. AV: ? Mechanical prosthetic aortic valve seen. A trace of ?denice-prosthetic ??aortic valve regurgitation. A mechanical ?valve ??is in the aortic position with post-deployment peak ?velocity ??of 3.53m/sec, mean gradient of 31mmHg and a ?calculated ??YADIRA of 1.10cm2. MV: ? Moderate mitral regurgitation. No evidence of mitral ?stenosis. PV: ? No evidence of pulmonic valve stenosis. Mild pulmonic ?regurgitation. TV: ? Mild to moderate tricuspid regurgitation. Right ventricular ?systolic ??pressure is 40-50 mmHg suggestive of mild to ?moderate ??pulmonary hypertension. No evidence of tricuspid ?valve ??stenosis. ++++++++++++++++++++++++++++++++++++ MEASUREMENTS: ++++++++++++++++++++++++++++++++++++ ?DOPPLER LVOT ?? LVOTpkPG ? 8 mmHg ?LVOTmnPG ? 4 mmHg LVOTpkVel ?141 cm/s (70-110)+* LVOT SV ? 83 ml ?? LVOT TVI ?26.3 cm ? Right Atrium ?? RA Press ?15 mmHg ?Paulino's Disk ? 20 ? AV Forward Flow AV TVI ?51.2 cm ?AV pkPG ? 37 mmHg AV pkVel ? 305 cm/s (100-170)+* Area (TVI) ?1.61 cm2 ??(3-5)* AV mnPG ? 21 mmHg ?Area (Randall) ?1.45 cm2 ??(3- 5)* AV Regurg Flow AV pkVel ? 381 cm/s ?AV P1/2t ? 290 ms ?? AV pkPG ? 58 mmHg ? MV Forward Flow MV DeTm ?257 ms ?MV pkPG ?9 mmHg MV mnPG ?3 mmHg ? MV pkE ? 134 cm/s (60-130)+* PV Forward Flow PV pkVel ?96.4 cm/s (60-90)* PV AC ?109 ms ?? PV pkPG ?4 mmHg ? TV Regurg Flow TV pkPG ? 26 mmHg ? TV pkVel ? 253 cm/s (30-70)+* Right Ventricle ?? RVsys P ? 41 mmHg ?Right Ventricle ??5.32 cm/s Lat E' ?? Lat e ?7.2 cm/s ? Lat E/E' ?? Lat E/e ? 18.6 ? Med E' ?? Med e ? 4.94 cm/s ? Med E/E' ?? Med E/e ? 27.1 ? Aortic Valve ?? Aortic Valve Ar ??0.85 ?Aortic Valve Ve ??0.46 ? PV Antegrade Flow Acceleration Sl ?? 573 cm/s2 ? TAPSE ?? Distance ? 8 mm ?2D Left Ventricle ?? LVIDd ?4.8 cm ?? (3.6-5.2)+ LV ESV ?52.6 ml ?? LVIDs ? 3.63 cm ?? (2.3-3.9)+ LV ESV ?46.2 ml ?? LngAxd ?7.03 cm ?LVESV BP ?50.5 ml ?? LngAxd ? 7.4 cm ?LV EF ? 36.1 % ?? LV EDV ?82.2 ml ?LV EF ? 42.7 % ?? LV EDV ?80.4 ml ?LV EF BP ?38.7 % ?? LVEDV BP ?82.4 ml ?LV SV ? 29.6 ml ?? LngAxs ?6.96 cm ?LV SV ? 34.4 ml ?? LngAxs ?7.36 cm ?LV SV BP ?31.9 ml ?? LVPW ?? LVPWd ? 1.36 cm ? Ventricular Septum ?? IVSd ?1.32 cm ? Left Atrium ?? LA VOLBP ?72.9 ml ? Aorta ?? Ao Rtd ? 2.4 cm ? LVOT ?? LVOT ? 2 cm ?LVOTArea ?3.14 cm2 Ratios ?? IVS LA Biplane LAVol I BP ?38.6 ml/m2 ? RA Single Plane Right Atrium MO ??13.4 mm ? Right Atrium Sy ??51.1 ml ?? Right Atrium Sy ??64.4 mm ? Right Atrium Sy ?27 ml/m2 Right Atrium Sy ?20 cm2 ? Right Ventricle ?? Right Ventricle ?27 mm ? Right Ventricle ??32.8 mm ?? Major Barto ?77.7 mm ? Signed 10/16/2021 06:42 PM Tere Robbins M.D. Procedure Note Tere Robbins MD - 10/16/2021 Echocardiography Report Pat.Name: ANA MARIA BOBO Pat.ID: [id number] .Date: 10/16/2021 Exam Time: 3:01:00 PM Study Type:ECHO WITH CARDIAC DOPPLER COMP Height: 64in Weight: 183.62lb BSA: 1.89 m2 Age: 3 1945,76Y Sex: FEMALE BP: 115/57 HR: 91 bpm Sonogrphr: Becky Martel [facility] Pat. Stat.:Inpatient Room: [facility] Reason for Study: Aortic valve replacement, Congestive heart failure, Dyspnea on exertion, Murmur History / Clinical: Chest pain. Calf injury, redness, edema. PMH, cad, dm, htn, ckd, hld, copd Procedures: 2D, M-mode, Doppler, Color Flow, Definity was used to enhance endocardial definition., The study quality is technically difficult. Race: W ++++++++++++++++++++++++++++++++++++ SUMMARY: ++++++++++++++++++++++++++++++++++++ The left ventricular size is normal. Estimated left ventricular ejection fraction is 40-45%. Moderate concentric left ventricular hypertrophy. Left ventricular diastolic function is abnormal (grade 2 - pseudonormal pattern). ? ? ?Moderate global hypokinesis is noted. The right [...] cm Right Atrium RA Press 15 mmHg Paulino's Disk 20 AV Forward Flow AV TVI [...] 27 mm Right Ventricle 32.8 mm Major Barto 77.7 mm Signed 10/16/2021 06:42 PM Tere Robbins M.D. us Zoey BOJORQUEZC ECHO Final Re sult * (ABNORMAL) POCT glucose (10/16/2021 11:59 AM CDT) GLUCOSE POC 165(H) 70 - 99 mg/dL 10/16/2021 1:23 PM CDT [facility] 10/16/2021 11:5 9 AM CDT us Jonathan Rolle MD POCT ORDERABLES - DEVICE Fin al Result [facility] [address] [place] [address], [place] [phone] * (ABNORMAL) IRON SAT PANEL (IRON,IBC,%SAT) (10/16/2021 10:55 AM CDT) IRON 50 50.0 - 170.0 MCG/DL 10/16/2021 11:44 AM CDT [facility] IRON BINDING CAPACITY 232(L) 250 - 450 MCG/DL 10/16/2021 11:44 AM CDT [facility] IRON SATURATION 22 20 - 55 % 11:44 AM CDT [facility] 10/16/2021 10:5 5 AM CDT Zoey Ricks [employer] LABORATORY Final Re sult [facility] [address] [place] [id number], [place] [phone] * (ABNORMAL) PRO-BRAIN NATRIURETIC PEPTIDE (10/16/2021 10:55 AM CDT) Pathologist [facility] PRO-B TYPE NATRIURETIC PEPTIDE 8,960(H) <450 PG/ML 10/16/2021 11:38 AM CDT [facility] Comment: CUT POINTS ESTABLISHED BY [...] OF 89% AND 72% FOR ACUTE CHF. 10/16/2021 10:5 5 AM CDT Zoey Ricks SUSTAINABILITY PURCHASING AGENT-C LABORATORY Final Re sult Performing Organization Address City/[facility]/ZIP Co de Phone Number [facility] [address] [place] [address], [place] [phone] * POCT glucose (10/16/2021 6:24 AM CDT) GLUCOSE POC 91 70 - 99 mg/dL 10/16/2021 1:23 PM CDT [facility] 10/16/2021 6:24 AM CDT Jonathan Rolle MD POCT ORDERABLES - DEVICE Fin al Result Performing Organization Address [facility] Co de Phone Number [facility] [address] [place] [address], * (ABNORMAL) PROTIME/INR, VENOUS (10/16/2021 4:16 AM CDT) PROTIME 49.2(H) 10.2 - 12.9 SEC 10/16/2021 5:07 AM CDT [facility] INR 4.3 10/16/2021 5:07 AM CDT [facility] Comment: Recommended INR Therapeutic Goals: ??2.0-3.0 Routine Therapy ??2.5-3.5 Mechanical Prosthetic Valves (High Risk) 10/16/2021 4:16 AM CDT Gunner Vargas MD LABORATORY Final Result Performing Organization Address [facility] Co de Phone Number [facility] [address] [place] [phone], [place] [phone] * (ABNORMAL) MAGNESIUM (10/16/2021 4:16 AM CDT) MAGNESIUM 1.6(L) 1.8 - 2.4 MG/DL 10/16/2021 4:53 AM CDT [facility] 10/16/2021 4:16 AM CDT Gunner Vargas MD LABORATORY Final Result [facility] [address] [place] [address], [place] [phone] * (ABNORMAL) BASIC METABOLIC PANEL (10/16/2021 4:16 AM CDT) GLUCOSE 86 70 - 99 MG/DL 10/16/2021 4:53 AM CDT [facility] BUN 23(H) 7 - 18 MG/DL 10/16/2021 4:53 AM CDT [facility] CREATININE S/P/B 1.08(H) 0.55 - 1.02 MG/DL 10/16/2021 4:53 AM CDT [facility] SODIUM S/P/B 140 136 - 145 MMOL/L 10/16/2021 4:53 AM CDT [facility] POTASSIUM S/P/B 4.7 3.5 - 5.1 MMOL/L 10/16/2021 4:53 AM CDT [facility] CHLORIDE S/P/B 112(H) 100 - 108 MMOL/L 10/16/2021 4:53 AM CDT [facility] CO2 26.8 21 - 32 MMOL/L 10/16/2021 4:53 AM CDT [facility] CALCIUM S/P/B 9.6 8.5 - 10.1 MG/DL 10/16/2021 4:53 AM CDT [facility] ANION GAP 1.2(L) 5 - 15 MMOL/L 10/16/2021 4:53 AM CDT [facility] BUN CREATININE RATIO 21.3 6 - 26 10/16/2021 4:53 AM CDT [facility] GFR ESTIMATE 53(L) >90 ML/MIN/1.7 3 M2 10/16/2021 4:53 AM CDT [facility] Comment: NOTE: eGFR is not calculated for patients <18 years of age. This is an estimated GFR calculation using the new CKD EPI creatinine equation without race and so does not require a correction factor for race. This estimated GFR should not be used for calculating drug doses. 10/16/2021 4:16 AM CDT Gunner Vargas MD LABORATORY Final Result [facility] [address] [place] [address], [place] [phone] * (ABNORMAL) CBC W/DIFF AUTOMATED (10/16/2021 4:16 AM CDT) WBC 4.3(L) 4.5 - 11.0 x10'3/uL 10/16/2021 4:41 AM CDT [facility] RBC 2.63(L) 4.20 - 5.40 x10'6/uL 10/16/2021 4:41 AM CDT [facility] HGB 8.2(L) 12.0 - 16.0 G/DL 10/16/2021 4:41 AM CDT [facility] HCT 26.5(L) 38.0 - 48.0 % 10/16/2021 4:41 AM CDT [facility] MCV 100.8(H) 81.0 - 99.0 FL 10/16/2021 4:41 AM CDT [facility] MCH 31.2(H) 27.0 - 31.0 PG 10/16/2021 4:41 AM CDT [facility] MCHC 30.9(L) 32.0 - 36.0 G/DL 10/16/2021 4:41 AM CDT [facility] RDW 12.7 11.5 - 14.5 % 10/16/2021 4:41 AM CDT [facility] PLT 200 130 - 400 x10'3/uL 10/16/2021 4:41 AM T [facility] MPV 12.7(H) 9.3 - 12.2 FL 10/16/2021 4:41 AM T [facility] DIFFERENTIAL TYPE AUTOMATED DIFFERENTIAL 10/16/2021 4:41 AM CDT [facility] NEUTROPHILS % 46.0 % 10/16/2021 4:41 AM T [facility] LYMPHOCYTES % 28.8 % 10/16/2021 4:41 AM T [facility] MONOCYTES % 20.4 % 10/16/2021 4:41 AM T [facility] EOSINOPHILS 3.7 % 10/16/2021 4:41 AM T [facility] BASOPHILS 0.9 % 10/16/2021 4:41 AM CDT [facility] IMMATURE GRANS % 0.2 % 10/17/19 4:41 AM T [facility] ABS. NEUTROPHILS TOTAL 1.98 1.80 - 7.70 x10'3/uL 10/16/2021 4:41 AM T [facility] ABS. LYMPHOCYTES 1.24 1.00 - 4.80 x10'3/uL 10/16/2021 4:41 AM CDT [facility] ABS. MONOCYTES 0.88(H) 0.24 - 0.86 x10'3/uL 10/16/2021 4:41 AM CDT [facility] ABS. EOSINOPHILS 0.16 0.04 - 0.36 x10'3/uL 10/16/2021 4:41 AM CDT [facility] ABS. BASOPHILS 0.04 0.01 - 0.08 x10'3/uL 10/16/2021 4:41 AM CDT [facility] ABS. IMMATURE GRANULOCYTES 0.01 0.00 - 0.49 x10'3/uL 10/16/2021 4:41 AM CDT [facility] 10/16/2021 4:16 AM CDT Gunner Vargas MD LABORATORY Final Result [facility] [address] [place] [address], [place] [phone] * (ABNORMAL) POCT glucose (10/15/2021 8:54 PM CDT) [facility] GLUCOSE POC 149(H) 70 - 99 mg/dL 10/15/2021 9:54 PM CDT [facility] 10/15/2021 8:54 PM CDT us Gunner Vargas MD POCT ORDERABLES - DEVICE Fin al Result [address] [address], [place] [phone] * CTA CHEST (10/15/2021 5:36 PM CDT) Anatomical Region Laterality Modality Chest Computed Tomogra phy 10/15/2021 5:52 PM CDT Impressions 10/15/2021 5:56 PM CDT IMPRESSION: 1. ??No evidence of pulmonary embolism or other acute findings. 2. ??Cardiomegaly. 3. ??Other chronic or nonurgent findings as described above. Referred By: ?? Interpreted By: Estevna Martines MD, 10/15/2021 5:52 PM Narrative 10/15/2021 5:56 PM CDT Examination: CTA CHEST Clinical history: Chest pain Comparison: X-ray, same date DATE/TIME: 10/15/2021 5:13 PM Technique: Multiplanar images of the chest were obtained following the uneventful intravenous administration of 80 mL Isovue 370. ??3D Post-processed images were reconstructed on an independent workstation. ??A dose lowering technique was used for this procedure, which may include, but is not limited to, dose reduction technique, automated exposure control, the use of iterative reconstruction, and ALARA (As Low As Reasonably Achievable) / Image Gently techniques. Findings: There is adequate pulmonary artery opacification. ??No evidence of pulmonary embolism. Mild to moderate cardiomegaly. ??Aortic valve prosthesis. ??Coronary artery calcifications. ??No pericardial effusion. ??Thoracic aorta is normal caliber. ??No mediastinal or hilar lymphadenopathy. No evidence of pneumonia or pulmonary edema. ??No pleural effusion or pneumothorax. ??Thoracic compression deformity of T6 with 75% anterior height loss, appearing chronic. ??There is minimal retropulsion into the spinal canal with Mild spinal canal narrowing. ??Sternotomy. ??Thoracic spondylosis. Procedure Note Estevan Martines MD - 10/15/2021 Examination: CTA CHEST Clinical history: Chest pain Comparison: X-ray, same date DATE/TIME: 10/15/2021 5:13 PM Technique: Multiplanar images of the chest were obtained following theuneventful intravenous administration of 80 mL Isovue 370. 3DPost-processed images were reconstructed on an independent workstation. Adose lowering technique was used for this procedure, which may include,but is not limited to, dose reduction technique, automated exposurecontrol, the use of iterative reconstruction, and ALARA (As Low AsReasonably Achievable) / Image Gently techniques. Findings: There is adequate pulmonary artery opacification. No evidenceof pulmonary embolism. Mild to moderate cardiomegaly. Aortic valve prosthesis. Coronary arterycalcifications. No pericardial effusion. Thoracic aorta is normalcaliber. No mediastinal or hilar lymphadenopathy. No evidence of pneumonia or pulmonary edema. No pleural effusion orpneumothorax. Thoracic compression deformity of T6 with 75% anteriorheight loss, appearing chronic. There is minimal retropulsion into thespinal canal with Mild spinal canal narrowing. Sternotomy. Thoracic spondylosis. IMPRESSION: 1. No evidence of pulmonary embolism or other acute findings. 2. Cardiomegaly. 3. Other chronic or nonurgent findings as described above. Referred By: Interpreted By: Estevan Martines MD, 10/15/2021 5:52 PM us Mary Higgins MD CT Final Result * TROPONIN, QUANT (10/15/2021 5:17 PM CDT) Pathologist [facility] TROPONIN I HIGH SENSITIVITY 24 <54 ng/L 10/15/2021 5:54 PM CDT [facility] Comment: HIGH DOSES OF BIOTIN, TROPONIN-SPECIFIC AUTOANTIBODIES, AND ANTIBODY THERAPY CONTAINING HAMA MAY INTERFERE WITH THIS TEST RESULT. CORRELATION TO CLINICAL HISTORY AND PRESENTATION RECOMMENDED. 10/15/2021 5:17 PM CDT us Mary Higgins MD LABORATORY Final Result [facility] [address] [place] [address], [place] [phone] * ECG 12 lead (10/15/2021 5:09 PM CDT) 10/15/2021 5:09 PM CDT Narrative [facility] ([facility] - 10/16/2021 5:54 PM CDT ?[facility] ? [address], [place] ? Test Date: ?2021-10-15 Pat Name: ? ANA MARIA BOBO ?Department: ?? 41 ? Room: ? C04 Gender: ? Female ? Stock Feeder: ?? KM : ?1945 ? Requested By: CARRIE CALHOUN Order Number: [id number] ? Reading MD: ?? Shiyam Satwani ? Measurements Intervals ?Barto ? Rate: ? 83 ? P: ? MO: ? 0 ?QRS: ?-27 QRSD: ? 145 ?T: ?85 QT: ? 381 ? QTc: ?448 ? Interpretive Statements ATRIAL FIBRILLATION LEFT BUNDLE BRANCH BLOCK Compared to ECG 10/15/2021 15:06:38 No significant changes Procedure Note Gael Hart MD - 10/16/[address] [place] Test Date: 2021-10-15 Pat Name: ANA MARIA BOBO Department: 41 Room: C04 Gender: Female Stock Feeder: CAREN : 1945 Requested By: CARRIE CALHOUN Order Number: [id number] Reading MD: Gael Hart Measurements Intervals Barto Rate: 83 P: MO: 0 QRS: -27 QRSD: 145 T: 85 QT: 381 QTc: 448 Interpretive Statements ATRIAL FIBRILLATION LEFT BUNDLE BRANCH BLOCK Compared to ECG 10/15/2021 15:06:38 No significant changes us Mary Higgins MD ECG ORDERABLES Final Result [facility] RAD * USV NEGRITA DUPLEX LOW EXT RT (10/15/2021 4:25 PM CDT) Anatomical Region Laterality Modality Extremity Vascular Ultraso und 10/15/2021 4:09 PM CDT Narrative 10/21/2021 12:57 PM CDT ?VENOUS DUPLEX IMAGING ?RIGHT LOWER EXTREMITY ? VASCULAR LAB ? Pat.Name: ??ANA MARIA BOBO HANNA ?Pat.ID: ?[id number] ? St.Date: ?? 10/15/2021 ?Exam Time: 4:09:00 PM ? Study Type:TOYA VS Venous Duplex Leg Rt ??Age: ??1945,76Y ? Sex: ? FEMALE ?Sonogrphr: Diana Bronson RVT ? Pat. Stat.:Outpatient ?Room: ?ER ? History / Clinical:Chest pain. Calf injury, redness, edema. PMH, ??cad, dm, htn, ckd, hld, copd Procedures: Carrillo scale, Color Doppler imaging, Doppler Spectral Analysis Race: ?W ? ++++++++++++++++++++++++++++++++++++ SUMMARY: ++++++++++++++++++++++++++++++++++++ Right leg: ??There are NO apparent, deep or superficial vein, ACUTE character venous filling defects visualized in the femoral, popliteal, deep calf or proximal saphenous ??veins. ?? Resting venous flow is normal phasic proximally. ??No valve ??reflux with compression maneuvers is detected in the femoral and popliteal veins. Left leg LIMITED: ??Resting venous flow is normal phasic at the common femoral. ??No valve reflux with compression maneuvers is detected in the common femoral vein. CONCLUSION: Normal study right lower extremity, with no evidence of acute deep or superficial vein thrombosis. ?? There is no significant reflux detected. ? ++++++++++++++++++++++++++++++++++++ FINDINGS: ++++++++++++++++++++++++++++++++++++ Signed 10/21/2021 12:57 PM José Kaiser M.D. Procedure Note José Kaiser MD - 10/21/2021 VENOUS DUPLEX IMAGING RIGHT LOWER EXTREMITY VASCULAR LAB Pat.Name: JERAMIE ANA MARIA HANNA Pat.ID: [id number] [facility] Exam Time: 4:09:00 PM Study Type:TOYA [...] Signed 10/21/2021 12:57 PM José Kaiser M.D. Mary Higgins MD [facility] Final Result * LIPASE (10/15/2021 3:38 PM CDT) [facility] LIPASE 116 73 - 393 UNITS/L 10/15/2021 4:16 PM CDT [facility] 10/15/2021 3:38 PM CDT Mary Higgins MD LABORATORY Final Result [facility] [address] [place] [id number], [place] [phone] * (ABNORMAL) D-DIMER, QUANTITATIVE (10/15/2021 3:38 PM CDT) [facility] D-DIMER 638(HH) 0 - 500 ng{FEU}/mL 10/15/2021 5:06 PM CDT [facility] Comment: D-Dimer values less than or equal to 500 ng/mL FEU have a negative predictive value of >95% for exclusion of deep vein thrombosis and pulmonary embolism. In patients over 50 (who tend to have higher normal baseline D-Dimer values), recent studies suggest age-adjusted D-Dimer cutoff values (calculated as: age [years] x 10 ng/mL) result in equivalent outcomes and no additional false negative findings. Successful Call: DDIMR called 10/15/2021 05:07 PM to EMERGENCY ROOM ([id number]/BASIA [facility]TEZ) by [id number]. Read Back: Yes 10/15/2021 3:38 PM CDT us Mary Higgins MD LABORATORY Final Result Performing Organization Address [facility] Co de Phone Number [facility] [address] [place] [address], [place] [phone] * (ABNORMAL) PROTIME/INR, VENOUS (10/15/2021 3:38 PM CDT) PROTIME 52.1(H) 10.2 - 12.9 SEC 10/15/2021 5:06 PM CDT [facility] INR 4.6 10/15/2021 5:06 PM CDT [facility] Comment: Recommended INR Therapeutic Goals: ??2.0-3.0 Routine Therapy ??2.5-3.5 Mechanical Prosthetic Valves (High Risk) 10/15/2021 3:38 PM CDT us Mary Higgins MD LABORATORY Final Result Performing Organization Address [facility] Co de Phone Number [facility] [address] [place] [address], [place] [phone] * (ABNORMAL) PARTIAL THROMBOPLASTIN TIME,PTT (10/15/2021 3:38 PM CDT) PTT 41.5(H) 25.1 - 36.5 SEC 10/15/2021 5:06 PM CDT [facility] 10/15/2021 3:38 PM CDT Mary Higgins MD LABORATORY Final Result [facility] [address] [place] [address], * ECG 12 lead (10/15/2021 3:06 PM CDT) 10/15/2021 3:06 PM CDT Narrative [facility] ([facility] - 10/16/2021 5:51 PM CDT ?[facility] [place] ? [address] [place] ? Test Date: ?2021-10-15 Pat Name: ? ANA MARIA BOBO ?Department: ?? 41 ? Room: ? C04 Gender: ? Female ? Stock Feeder: ?? CAREN : ?1945 ? Requested By: CARRIE CALHOUN Order Number: [id number] ? Reading : ?? Gael Hart ? Measurements Intervals ?Barto ? Rate: ? 71 ? P: ? MO: ? 0 ?QRS: ?-28 QRSD: ? 145 ?T: ?120 QT: ? 398 ? QTc: ?434 ? Interpretive Statements ATRIAL FIBRILLATION LEFT BUNDLE BRANCH BLOCK Compared to ECG 10/15/2021 13:07:12 Left-axis deviation no longer present Procedure Note Gael Hart MD - [facility] [address] [facility] Test Date: 2021-10-15 Pat Name: ANA MARIA BOBO Department: 41 Room: C04 Gender: Female Stock Feeder: CAREN DURAND: 1945 Requested By: CARRIE CALHOUN Order Number: [id number] Reading MD: Gael Hart Measurements Intervals Barto Rate: 71 P: MO: 0 QRS: -28 QRSD: 145 T: 120 QT: 398 QTc: 434 Interpretive Statements ATRIAL FIBRILLATION LEFT BUNDLE BRANCH BLOCK Compared to ECG 10/15/2021 13:07:12 Left-axis deviation no longer present Mary Higgins MD ECG ORDERABLES Final Result Performing Organization Address City/[facility]/ZIP Co de Phone Number [facility] * TROPONIN, QUANT (10/15/2021 2:58 PM CDT) TROPONIN I HIGH SENSITIVITY 26 <54 ng/L 10/15/2021 3:40 PM CDT [facility] Comment: HIGH DOSES OF BIOTIN, TROPONIN-SPECIFIC AUTOANTIBODIES, AND ANTIBODY THERAPY CONTAINING HAMA MAY INTERFERE WITH THIS TEST RESULT. CORRELATION TO CLINICAL HISTORY AND PRESENTATION RECOMMENDED. 10/15/2021 2:58 PM CDT Mary Higgins MD LABORATORY Final Result Performing Organization Address [facility]/ZIP Co de Phone Number [facility] [address] [place] [address], [place] [phone] * XR CHEST PORTABLE (10/15/2021 1:32 PM CDT) Anatomical Region Laterality Modality Chest Radiographic Jennifer ging 10/15/2021 1:33 PM CDT Impressions 10/15/2021 1:35 PM CDT Impression: 1. ??No acute infiltrate. 2. ??Borderline vascular congestion. Referred By: ?? Interpreted By: Estevan Martines MD, 10/15/2021 1:33 PM Narrative 10/15/2021 1:35 PM CDT Examination: Chest 1 view portable History: Chest pain DATE/TIME: 10/15/2021 1:17 PM Comparison: None Technique: AP upright portable view of the chest was obtained. Findings: Sternotomy. ??Heart size and mediastinal contours are normal. ??Borderline pulmonary vasculature. ??No pulmonary consolidation, pleural effusion or pneumothorax. ??No acute osseous abnormality. ??Old left clavicle fracture. Procedure Note Estevan Martines MD - 10/15/2021 Examination: Chest 1 view portable History: Chest pain DATE/TIME: 10/15/2021 1:17 PM Comparison: None Technique: AP upright portable view of the chest was obtained. Findings: Sternotomy. Heart size and mediastinal contours are normal.Borderline pulmonary vasculature. No pulmonary consolidation, pleuraleffusion or pneumothorax. No acute osseous abnormality. Old leftclavicle fracture. Impression: 1. No acute infiltrate. 2. Borderline vascular congestion. Referred By: Interpreted By: Esteavn Martines MD, 10/15/2021 1:33 PM Mary Higgins MD GENERAL IMAGING Final Result * TROPONIN, QUANT (10/15/2021 1:20 PM CDT) TROPONIN I HIGH SENSITIVITY 25 <54 ng/L 10/15/2021 2:08 PM CDT [facility] Comment: HIGH DOSES OF BIOTIN, TROPONIN-SPECIFIC AUTOANTIBODIES, AND ANTIBODY THERAPY CONTAINING HAMA MAY INTERFERE WITH THIS TEST RESULT. CORRELATION TO CLINICAL HISTORY AND PRESENTATION RECOMMENDED. 10/15/2021 1:20 PM CDT us Mary Higgins MD LABORATORY Final Result [facility] [address] [place] [address], [place] [phone] * (ABNORMAL) COMPREHENSIVE METABOLIC PANEL (10/15/2021 1:20 PM CDT) [facility] GLUCOSE 222(H) 70 - 99 MG/DL 10/15/2021 2:08 PM CDT [facility] BUN 22(H) 7 - 18 MG/DL 10/15/2021 2:08 PM CDT [facility] CREATININE S/P/B 1.34(H) 0.55 - 1.02 MG/DL 10/15/2021 2:08 PM CDT [facility] SODIUM S/P/B 140 136 - 145 MMOL/L 10/15/2021 2:08 PM CDT [facility] POTASSIUM S/P/B 4.5 3.5 - 5.1 MMOL/L 10/15/2021 2:08 PM CDT [facility] CHLORIDE S/P/B 111(H) 100 - 108 MMOL/L 10/15/2021 2:08 PM CDT [facility] CO2 26.3 21 - 32 MMOL/L 10/15/2021 2:08 PM CDT [facility] CALCIUM S/P/B 10.2(H) 8.5 - 10.1 MG/DL 10/15/2021 2:08 PM CDT [facility] BILIRUBIN TOTAL S/P/B 0.5 0.2 - 1.2 MG/DL 10/15/2021 2:08 PM CDT [facility] Comment: THIS ASSAY IS NOT RECOMMENDED FOR PATIENTS UNDERGOING TREATMENT WITH ELTROMBOPAG DUE TO THE POTENTIAL FOR FALSELY ELEVATED RESULTS. TOTAL PROTEIN S/P/B 6.6 6.4 - 8.2 G/DL 10/15/2021 2:08 PM T [facility] ALBUMIN S/P/B 2.8(L) 3.4 - 5.0 G/DL 10/15/2021 2:08 PM CDT [facility] AST 36 15 - 37 U/L 10/15/2021 2:08 PM CDT [facility] ALT 40 14 - 55 U/L 10/15/2021 2:08 PM CDT [facility] ALKALINE PHOSPHATASE S/P/B 89 50 - 136 U/L 10/15/2021 2:08 PM CDT [facility] ANION GAP 2.7(L) 5 - 15 MMOL/L 10/15/2021 2:08 PM CDT [facility] BUN CREATININE RATIO 16.4 6 - 26 10/15/2021 2:08 PM CDT [facility] A/G RATIO 0.7(L) 1.0 - 2.0 RATIO 10/15/2021 2:08 PM CDT [facility] GFR ESTIMATE 41(L) >90 ML/MIN/1.7 3 M2 10/15/2021 2:08 PM CDT [facility] Comment: NOTE: eGFR is not calculated for patients <18 years of age. This is an estimated GFR calculation using the new CKD EPI creatinine equation without race and so does not require a correction factor for race. This estimated GFR should not be used for calculating drug doses. 10/15/2021 1:20 PM CDT Mary Higgins MD LABORATORY Final Result [facility] [address] [place] [address], [place] [phone] * (ABNORMAL) CBC W/DIFF AUTOMATED (10/15/2021 1:20 PM CDT) WBC 5.1 4.5 - 11.0 x10'3/uL 10/15/2021 1:33 PM CDT [facility] RBC 3.05(L) 4.20 - 5.40 x10'6/uL 10/15/2021 1:33 PM CDT [facility] HGB 9.6(L) 12.0 - 16.0 G/DL 10/15/2021 1:33 PM CDT [facility] HCT 32.0(L) 38.0 - 48.0 % 10/15/2021 1:33 PM CDT [facility] MCV 104.9(H) 81.0 - 99.0 FL 10/15/2021 1:33 PM CDT [facility] MCH 31.5(H) 27.0 - 31.0 PG 10/15/2021 1:33 PM CDT [facility] MCHC 30.0(L) 32.0 - 36.0 G/DL 10/15/2021 1:33 PM CDT [facility] RDW 12.8 11.5 - 14.5 % 10/15/2021 1:33 PM CDT [facility] PLT 227 130 - 400 x10'3/uL 10/15/2021 1:33 PM CDT [facility] MPV 12.7(H) 9.3 - 12.2 FL 10/15/2021 1:33 PM CDT [facility] DIFFERENTIAL TYPE AUTOMATED DIFFERENTIAL 10/15/2021 1:33 PM CDT [facility] NEUTROPHILS % 67.0 % 10/15/2021 1:33 PM CDT [facility] LYMPHOCYTES % 16.3 % 10/15/2021 1:33 PM CDT [facility] MONOCYTES % 13.9 % 10/15/2021 1:33 PM CDT [facility] EOSINOPHILS 1.8 % 10/15/2021 1:33 PM CDT [facility] BASOPHILS 0.8 % 10/15/2021 1:33 PM CDT [facility] IMMATURE GRANS % 0.2 % 10/16/19 1:33 PM CDT [facility] ABS. NEUTROPHILS TOTAL 3.42 1.80 - 7.70 x10'3/uL 10/15/2021 1:33 PM CDT [facility] ABS. LYMPHOCYTES 0.83(L) 1.00 - 4.80 x10'3/uL 10/15/2021 1:33 PM CDT [facility] ABS. MONOCYTES 0.71 0.24 - 0.86 x10'3/uL 10/15/2021 1:33 PM CDT [facility] ABS. EOSINOPHILS 0.09 0.04 - 0.36 x10'3/uL 10/15/2021 1:33 PM CDT [facility] ABS. BASOPHILS 0.04 0.01 - 0.08 x10'3/uL 10/15/2021 1:33 PM CDT [facility] ABS. IMMATURE GRANULOCYTES 0.01 0.00 - 0.49 x10'3/uL 10/15/2021 1:33 PM CDT [facility] 10/15/2021 1:20 PM CDT Mary Higgins MD LABORATORY Final Result [facility] [address] [place] [address], [place] [phone] * ECG 12 lead (10/15/2021 1:07 PM CDT) 10/15/2021 1:07 PM CDT Narrative [facility] [place] ([facility] - 10/16/2021 5:44 PM CDT ?[facility] [place] ? [address], [place] ? Test Date: ?2021-10-15 Pat Name: ? ANA MARIA BOBO ?Department: ?? 41 ? Room: ? C04 Gender: ? Female ? Stock Feeder: ?? ATS : ?1945 ? Requested By: CARRIE CALHOUN Order Number: [id number] ? Reading MD: ?? Shiyam Satwani ? Measurements Intervals ?Barto ? Rate: ? 108 ?P: ? MO: ? 0 ?QRS: ?-40 QRSD: ? 137 ?T: ?115 QT: ? 349 ? QTc: ?468 ? Interpretive Statements ATRIAL FIBRILLATION WITH RAPID VENTRICULAR RESPONSE LEFT AXIS DEVIATION LEFT BUNDLE BRANCH BLOCK Compared to ECG 09/17/2021 20:23:49 Left-axis deviation now present Sinus rhythm no longer present Procedure Note Gael Hart MD - 10/16/[address] [facility] Test Date: 2021-10-15 Pat Name: ANA MARIA BOBO Department: 41 Room: C04 Gender: Female Stock Feeder: ATS : 1945 Requested By: CARRIE CALHOUN Order Number: [id number] Reading MD: Gael Hart Measurements Intervals Barto Rate: 108 P: MO: 0 QRS: -40 QRSD: 137 T: 115 QT: 349 QTc: 468 Interpretive Statements ATRIAL FIBRILLATION WITH RAPID VENTRICULAR RESPONSE LEFT AXIS DEVIATION LEFT BUNDLE BRANCH BLOCK Compared to ECG 09/17/2021 20:23:49 Left-axis deviation now present Sinus rhythm no longer present us Mary Higgins MD ECG ORDERABLES Final Result [facility] ([facility]) [facility] documented in this encounter Visit Diagnoses Diagnosis Chest pain- Primary Chest pain, unspecified Chest pain Chest pain, unspecified Dyspnea on exertion Other dyspnea and respiratory abnormality documented in this encounter Admitting Diagnoses Diagnosis Chest pain Chest pain, unspecified documented in this encounter Administered Medications Inactive Administered Medications - up to 3 most recent administrations Medication Order MAR Action Action Date Dose Rate Site acetaminophen (TYLENOL) tablet 650 mg 650 mg, Oral, Every 4 hours PRN, Fever, Discomfort, Starting on Thu10/15/21 at 1859, Until Thu10/21/21 at 1647, Maximum dose of acetaminophen is 4000 mg from all sources in 24 hours. Given 10/17/2021 9:35 PM CDT 650 mg ALPRAZolam (XANAX) tablet 0.25 mg 0.25 mg, Oral, 2 times daily PRN, Anxiety, Starting on Thu10/15/21 at 1855, Until Thu10/21/21 at 1647 Given 10/20/2021 8:50 PM CDT 0.25 mg Given 10/19/2021 8:10 PM CDT 0.25 mg Given 10/18/2021 8:23 PM CDT 0.25 mg azithromycin (ZITHROMAX) 500 mg in sodium chloride 0.9 % 250 mL IVPB 500 mg, Intravenous, at 250 mL/hr, Every 24 hours, 3 doses, First dose on Thu10/19/21 at 1245, Last dose on Thu10/21/21 at 1245 New Bag 10/21/2021 12:29 PM CDT 500 mg 25 0 mL/hr New Bag 10/20/2021 2:02 PM CDT 500 mg 250 mL/hr New Bag 10/19/2021 4:02 PM CDT 500 mg 250 mL/hr calcium carbonate (TUMS) chewable tablet 500 mg 500 mg, Oral, 3 times daily PRN, Indigestion, Heartburn, Starting on Thu10/18/21 at 2314, Until Thu10/21/21 at 1647 Given 10/19/2021 8:10 PM CDT 500 mg Given 10/19/2021 12:50 AM CDT 500 mg cefTRIAXone (ROCEPHIN) 1 g in sodium chloride 0.9 % 50 mL IVPB 1 g, Intravenous, at 100 mL/hr, Every 24 hours, First dose on Thu10/19/21 at 1245, Until Discontinued New Bag 10/21/2021 11:45 AM CDT 1 g 10 0 mL/hr New Bag 10/20/2021 2:02 PM CDT 1 g 100 mL/hr New Bag 10/19/2021 2:10 PM CDT 1 g 100 mL/hr furosemide (LASIX) injection 40 mg 40 mg, Intravenous, Daily, First dose on Thu10/16/21 at 1000, Until Discontinued, Administer IV push 20-40mg/min. Given 10/17/2021 9:12 AM CDT 40 mg Given 10/16/2021 10:23 AM CDT 40 mg furosemide (LASIX) injection 40 mg 40 mg, Intravenous, 2 times daily, First dose (after last modification) on Sandi 10/17/21 at 1700, Until Discontinued, Administer IV push 20-40mg/min. Given 10/18/2021 9:37 AM CDT 40 mg Given 10/17/2021 4:46 PM CDT 40 mg furosemide (LASIX) tablet 40 mg 40 mg, Oral, Daily, First dose on 10/19/21 at 0945, Until Discontinued Given 10/21/2021 8:52 AM CDT 40 mg Given 10/20/2021 8:54 AM CDT 40 mg Given 10/19/2021 9:41 AM CDT 40 mg gabapentin (NEURONTIN) capsule 300 mg 300 mg, Oral, 2 times daily, First dose on Thu10/15/21 at 2100, Until Discontinued Given 10/21/2021 8:52 AM CDT 300 m g Given 10/20/2021 8:50 PM CDT 300 mg Given 10/20/2021 8:54 AM CDT 300 mg HYDROcodone-acetaminophen (NORCO) 10-325 MG tablet 1 tablet 1 tablet, Oral, Every 6 hours PRN, Severe pain (Scale 8 - 10), Starting on Thu10/15/21 at 1856, Until Thu10/21/21 at 1647, Maximum dose of acetaminophen is 4000 mg from all sources in 24 hours.Do not take with alprazolam. No further refills until seen in office.Indications:Chronic Pain Given 10/21/2021 2:26 PM CDT 1 tablet Given 10/21/2021 5:11 AM CDT 1 tablet Given 10/20/2021 4:54 PM CDT 1 tablet iopamidol (ISOVUE-370) 76 % injection 100 mL 100 mL, Intravenous, IMG once as needed, Contrast, 1 dose, Starting on Thu10/15/21 at 1737, Until Thu10/15/21 at 1737 Given 10/15/2021 5:37 PM CDT 100 mLs Right Arm lidocaine 4 % patch 1 patch 1 patch, Transdermal, Every 24 hours, First dose on Thu10/16/21 at 0900, Until Discontinued Patch Applied 10/21/2021 9:36 AM CDT 1 patch Right Shoulder Patch Applied 10/20/2021 8:54 AM CDT 1 patch Right Shoulder Patch Applied 10/19/2021 9:42 AM CDT 1 patch Right Shoulder lisinopril (PRINIVIL) tablet 40 mg 40 mg, Oral, Daily, First dose on Thu10/16/21 at 0900, Until Discontinued Given 10/21/2021 8:52 AM CDT 40 mg Given 10/20/2021 8:54 AM CDT 40 mg Given 10/19/2021 9:41 AM CDT 40 mg orvgwnond-qziohdjm-gbmfqxsljzf (MYLANTA MAXIMUM STRENGTH) 8736-1641-690 mg/30mL suspension 5 mL, Oral, Every 4 hours PRN, Heartburn, Starting on Thu10/18/21 at 2314, Until Thu10/21/21 at 1647, Shake Well Given 10/19/2021 8:10 PM CDT 5 mLs Given 10/19/2021 12:50 AM CDT 5 mLs methIMAzole (TAPAZOLE) tablet 5 mg 5 mg, Oral, Daily, First dose on Thu10/16/21 at 0900, Until Discontinued, HAZARDOUS MEDICATION: wear single chemotherapy approved gloves. Do not open or split. If crushing, use approved closed-system crushing device for hazardous medications. Given 10/21/2021 8:52 AM CDT 5 mg Given 10/20/2021 8:54 AM CDT 5 mg Given 10/19/2021 9:41 AM CDT 5 mg metoprolol succinate ER (TOPROL-XL) 24 hr tablet 25 mg 25 mg, Oral, Daily, First dose on Thu10/16/21 at 0900, Until Discontinued, May be split in half along the tablet score line; do not chew or crush. Given 10/21/2021 8:52 AM CDT 25 mg Given 10/20/2021 8:54 AM CDT 25 mg Given 10/19/2021 9:42 AM CDT 25 mg ondansetron (ZOFRAN) injection 4 mg 4 mg, Intravenous, Every 8 hours PRN, Nausea, Vomiting, Starting on Thu10/15/21 at 1859, Until Thu10/21/21 at 1647, IV push over 2-5 minutes. Given 10/17/2021 9:35 PM CDT 4 mg pantoprazole EC (PROTONIX) tablet 20 mg 20 mg, Oral, Daily, First dose on Thu10/16/21 at 0900, Until Discontinued, Do not break, chew, or crush. Given 10/21/2021 8:53 AM CDT 20 mg Given 10/20/2021 8:54 AM CDT 20 mg Given 10/19/2021 9:41 AM CDT 20 mg perflutren lipid microsphere (DEFINITY) injection 2 mL 2 mL, Intravenous, IMG once as needed, Contrast, 1 dose, Starting on Thu10/16/21 at 1546, Until Thu10/16/21 at 1546, Administer over 30-60 seconds. Follow with 10 mL saline flush. Given 10/16/2021 3:46 PM CDT 2 mLs polyethylene glycol (GLYCOLAX) packet 17 g 17 g, Oral, Daily as needed, Constipation, Starting on Thu10/15/21 at 1859, Until Thu10/21/21 at 1647, If both senna and polyethylene glycol are ordered, use 1st; if no response by next dosing interval, go to next option. Given 10/18/2021 9:43 AM CDT 17 g Given 10/17/2021 6:16 PM CDT 17 g Given 10/16/2021 8:37 PM CDT 17 g sodium chloride (OCEAN) 0.65 % nasal spray 1 spray 1 spray, Each Nostril, As needed, Dryness, Starting on Thu10/20/21 at 2152, Until Thu10/21/21 at 1647 venlafaxine XR (EFFEXOR-XR) 24 hr capsule 150 mg 150 mg, Oral, Daily, First dose on Thu10/16/21 at 0900, Until Discontinued, Swallow capsule whole or it may be opened and the contents sprinkled on applesauce. Given 10/21/2021 8:52 AM CDT 150 mg Given 10/20/2021 8:54 AM CDT 150 mg Given 10/19/2021 9:41 AM CDT 150 mg warfarin (COUMADIN) pharmacy to dose placeholder Oral, See admin instructions, Starting on Thu10/16/21 at 0913, Until Thu10/21/21 at 1647, Warfarin Placeholder Only: Do NOT document administrations on this placeholder. (Use medication on MAY to document administrations or contact pharmacy if medication order not entered.) warfarin (COUMADIN) tablet 2 mg 2 mg, Oral, Once, 1 dose, On 10/20/21 at 1700, HAZARDOUS MEDICATION: wear single chemotherapy approved gloves. Do not open or split. If crushing, use approved closed-system crushing device for hazardous medications. Given 10/20/2021 4:54 PM CDT 2 mg warfarin (COUMADIN) tablet 3 mg 3 mg, Oral, Once, 1 dose, On 10/21/21 at 1700, HAZARDOUS MEDICATION: wear single chemotherapy approved gloves. Do not open or split. If crushing, use approved closed-system crushing device for hazardous medications. warfarin (COUMADIN) tablet 4 mg 4 mg, Oral, Once, 1 dose, On 10/19/21 at 1700, HAZARDOUS MEDICATION: wear single chemotherapy approved gloves. Do not open or split. If crushing, use approved closed-system crushing device for hazardous medications. Given 10/19/2021 5:53 PM CDT 4 mg warfarin (COUMADIN) tablet 5 mg 5 mg, Oral, Once, 1 dose, On Sandi 10/17/21 at 1715, HAZARDOUS MEDICATION: wear single chemotherapy approved gloves. Do not open or split. If crushing, use approved closed-system crushing device for hazardous medications. Given 10/17/2021 6:14 PM CDT 5 mg warfarin (COUMADIN) tablet 5 mg 5 mg, Oral, Once, 1 dose, On Thu10/18/21 at 1715, HAZARDOUS MEDICATION: wear single chemotherapy approved gloves. Do not open or split. If crushing, use approved closed-system crushing device for hazardous medications. Given 10/18/2021 6:00 PM CDT 5 mg documented in this encounter Active and Recently Administered Medications Times are shown in CDT. Scheduled Medication Order 10/19/2021 10/20/2021 10/21/2021 aspirin chewable tablet 324 mg 324 mg, Oral, Once, 1 dose, On Thu10/15/21 at 1315, If not given by EMS or taken immediately prior to arrival azithromycin (ZITHROMAX) 500 mg in sodium chloride 0.9 % 250 mL IVPB (COMPLETED) 500 mg, Intravenous, at 250 mL/hr, Every 24 hours, 3 doses, First dose on Thu10/19/21 at 1245, Last dose on Thu10/21/21 at 1245 1602 (New Bag - Provider: Maine Rouse RN)1754 (Infusion Stop Time - Provider: Maine Rouse RN) 1402 (New Bag - Provider: Maine Roues RN)1537 (Infusion Stop Time - Provider: Maine Rouse RN) 1229 (New Bag - Provider: Maine Rouse RN)1352 (Infusion Stop Time - Provider: Maine Rouse RN) cefTRIAXone (ROCEPHIN) 1 g in sodium chloride 0.9 % 50 mL IVPB 1 g, Intravenous, at 100 mL/hr, Every 24 hours, First dose on Thu10/19/21 at 1245, Until Discontinued 1410 (New Bag - Provider: Maine Rouse RN)1440 (Infusion Stop Time - Provider: Maine Rouse RN) 1402 (New Bag - Provider: Maine Rouse RN)1432 (Infusion Stop Time - Provider: Maine Rouse RN) 1145 (New Bag - Provider: Maine Rouse RN)1229 (Infusion Stop Time - Provider: Maine Rouse RN) furosemide (LASIX) tablet 40 mg 40 mg, Oral, Daily, First dose on Thu10/19/21 at 0945, Until Discontinued 0941 (Given - Provider: Maine Rouse RN) 0854 (Given - Provider: Maine Rouse RN) 0852 (Given - Provider: Maine Rouse RN) gabapentin (NEURONTIN) capsule 300 mg 300 mg, Oral, 2 times daily, First dose on Thu10/15/21 at 2100, Until Discontinued 0941 (Given - Provider: Maine Rouse RN)2009 (Given - Provider: Diana Cunningham RN) 0854 (Given - Provider: Maine Rouse RN)2049 (Given - Provider: Diana Cunningham RN) 0852 (Given - Provider: Maine Rouse RN) lidocaine 4 % patch 1 patch 1 patch, Transdermal, Every 24 hours, First dose on Thu10/16/21 at 0900, Until Discontinued 42 (Patch Applied - Provider: Maine Rouse RN) 0854 (Patch Applied - Provider: Maine Rouse RN) 0936 (Patch Applied - Provider: Maine Rouse RN) lisinopril (PRINIVIL) tablet 40 mg 40 mg, Oral, Daily, First dose on Thu10/16/21 at 0900, Until Discontinued 940 (Given - Provider: Maine Rouse RN) 0854 (Given - Provider: Maine Rosue RN) 0852 (Given - Provider: Maine Rouse RN) methIMAzole (TAPAZOLE) tablet 5 mg 5 mg, Oral, Daily, First dose on Thu10/16/21 at 0900, Until Discontinued, HAZARDOUS MEDICATION: wear single chemotherapy approved gloves. Do not open or split. If crushing, use approved closed-system crushing device for hazardous medications. 940 (Given - Provider: Maine Rouse RN) 0854 (Given - Provider: Maine Rouse RN) 0852 (Given - Provider: Maine Rouse RN) metoprolol succinate ER (TOPROL-XL) 24 hr tablet 25 mg 25 mg, Oral, Daily, First dose on Thu10/16/21 at 0900, Until Discontinued, May be split in half along the tablet score line; do not chew or crush. 42 (Given - Provider: Maine Rouse RN) 0854 (Given - Provider: Maine Rouse RN) 0852 (Given - Provider: Maine Rouse RN) pantoprazole EC (PROTONIX) tablet 20 mg 20 mg, Oral, Daily, First dose on Thu10/16/21 at 0900, Until Discontinued, Do not break, chew, or crush. 0941 (Given - Provider: Maine Rouse RN) 0854 (Given - Provider: Maine Rouse RN) 0853 (Given - Provider: Maine Rouse RN) venlafaxine XR (EFFEXOR-XR) 24 hr capsule 150 mg 150 mg, Oral, Daily, First dose on Thu10/16/21 at 0900, Until Discontinued, Swallow capsule whole or it may be opened and the contents sprinkled on applesauce. 0941 (Given - Provider: Maine Rouse RN) 0854 (Given - Provider: Maine Rouse RN) 0852 (Given - Provider: Maine Rouse RN) warfarin (COUMADIN) pharmacy to dose placeholder(Linked Group 1) Oral, See admin instructions, Starting on Thu10/16/21 at 0913, Until Thu10/21/21 at 1647, Warfarin Placeholder Only: Do NOT document administrations on this placeholder. (Use medication on MAY to document administrations or contact pharmacy if medication order not entered.) warfarin (COUMADIN) tablet 2 mg (COMPLETED) 2 mg, Oral, Once, 1 dose, On Thu10/20/21 at 1700, HAZARDOUS MEDICATION: wear single chemotherapy approved gloves. Do not open or split. If crushing, use approved closed-system crushing device for hazardous medications. 1653 (Given - Provider: Maine Rouse RN) warfarin (COUMADIN) tablet 3 mg 3 mg, Oral, Once, 1 dose, On Thu10/21/21 at 1700, HAZARDOUS MEDICATION: wear single chemotherapy approved gloves. Do not open or split. If crushing, use approved closed-system crushing device for hazardous medications. warfarin (COUMADIN) tablet 4 mg (COMPLETED) 4 mg, Oral, Once, 1 dose, On Thu10/19/21 at 1700, HAZARDOUS MEDICATION: wear single chemotherapy approved gloves. Do not open or split. If crushing, use approved closed-system crushing device for hazardous medications. 175 (Given - Provider: Maine Rouse RN) PRN Medication Order 10/19/2021 10/20/2021 10/21/2021 acetaminophen (TYLENOL) tablet 650 mg 650 mg, Oral, Every 4 hours PRN, Fever, Discomfort, Starting on Thu10/15/21 at 1859, Until Thu10/21/21 at 1647, Maximum dose of acetaminophen is 4000 mg from all sources in 24 hours. ALPRAZolam (XANAX) tablet 0.25 mg 0.25 mg, Oral, 2 times daily PRN, Anxiety, Starting on Thu10/15/21 at 1855, Until Thu10/21/21 at 1647 2009 (Given - Provider: Diana Cunningham, DALE) 2049 (Given - Provider: Diana Cunningham, DALE) calcium carbonate (TUMS) chewable tablet 500 mg 500 mg, Oral, 3 times daily PRN, Indigestion, Heartburn, Starting on Thu10/18/21 at 2314, Until Thu10/21/21 at 1647 0050 (Given - Provider: Diana Cunningham, DALE)2009 (Given - Provider: Diana Cunningham RN) HYDROcodone-acetaminophe n (NORCO) 10-325 MG tablet 1 tablet 1 tablet, Oral, Every 6 hours PRN, Severe pain (Scale 8 - 10), Starting on Thu10/15/21 at 1856, Until Thu10/21/21 at 1647, Maximum dose of acetaminophen is 4000 mg from all sources in 24 hours.Do not take with alprazolam. No further refills until seen in office. 1552 (Given - Provider: Maine Rouse RN) 1654 (Given - Provider: Maine Rouse RN) 0511 (Given - Provider: Diana Cunningham, DALE)1426 (Given - Provider: Maine Rouse RN) mwzhkwgxq-lhuwjqkk-fjofd hicone (MYLANTA MAXIMUM STRENGTH) 9537-3318-169 mg/30mL suspension 5 mL, Oral, Every 4 hours PRN, Heartburn, Starting on Thu10/18/21 at 2314, Until Thu10/21/21 at 1647, Shake Well 0050 (Given - Provider: Diana Cunningham, DALE)2009 (Given - Provider: Diana Cunningham, DALE) ondansetron (ZOFRAN) injection 4 mg 4 mg, Intravenous, Every 8 hours PRN, Nausea, Vomiting, Starting on Thu10/15/21 at 1859, Until Thu10/21/21 at 1647, IV push over 2-5 minutes. polyethylene glycol (GLYCOLAX) packet 17 g 17 g, Oral, Daily as needed, Constipation, Starting on Thu10/15/21 at 1859, Until Thu10/21/21 at 1647, If both senna and polyethylene glycol are ordered, use 1st; if no response by next dosing interval, go to next option. sodium chloride (OCEAN) 0.65 % nasal spray 1 spray 1 spray, Each Nostril, As needed, Dryness, Starting on Thu10/20/21 at 2152, Until 10/21/21 at 1647 Linked Groups Order Group 1: Pharmacy to dose warfarin (COUMADIN) (CANCELED) Routine, Once, On Thu10/16/21 at 0914, For 1 occurrence, Target INR? 2.5-3.5, Indication for therapy (eg. afib)? HX of mechanical AVR and AFIB And warfarin (COUMADIN) pharmacy to dose placeholderJump to med Oral, See admin instructions, Starting on Thu10/16/21 at 0913, Until Thu10/21/21 at 1647, Warfarin Placeholder Only: Do NOT document administrations on this placeholder. (Use medication on MAY to document administrations or contact pharmacy if medication order not entered.) documented in this encounter Additional Health Concerns Assessment Noted Time PHQ-9 Depression Total Score: 0 05/25/19 22 9:23 AM CDT documented as of this encounter Care Teams Back End Engineer Relationship Specialty Start Date End Date Sanjeev Webster DO [address] [place] [id number] PCP - General FAMILY PRACTICE 09/25/20 Dianne Johnson, RN [address] [place] [address] Fire Officer (Ambulatory) REGISTERED NURSE 08/14/20 documented as of this encounter
--- OUTSIDE RECORDS SUMMARY | 2024-03-15 01:05 | XMS_ITS | Encounter Summary ---
Author Organization [facility] Address [facility]. [place], [place] [id number] [place] [id number] Care Team Providers Care Tripe Cooker Name Role Phone Dianne Johnson RN Unavailable [phone] Sanjeev Webster DO Primary Care Provider + Reason for Visit * Reason Onset Date Comments Question 10/22/2021 Encounter Details Date Type Department Care Team (Late st Contact Info) Description 10/22/2021 Telephone [facility] Family & Internal Medicine [facility] [address] [place] [address] Sanjeev Webster DO [address] [place] [address] Question Social History Tobacco Use [...] Recorded Patient Health Questionnaire-2 Score 3 07/08/2022 [facility] [...] Progress Notes * Scarlett Guerrero MA - 10/24/2021 4:34 PM CDT Patient has been admitted to [facility] * Sanjeev Webster DO - 10/22/2021 3:18 PM CDT Noted; please reach out to pt on 10/23/21; will need TCM note if not admitted. * SUHAIL Rosenthal - 10/22/2021 3:05 PM CDT Patient called to say she was released from ER yesterday but is so weak she cant stand. I informed her that she needs to go to the ER since theres nothing we can do for her in office if she's too weak to even stand or eat. While on the phone she also set up a tcm for this last admission documented in this encounter Plan of Treatment Upcoming Encounters Date Type Department Care Team (Late st Contact Info) Description 04/14/2024 2:00 PM DIET AID Office Visit [facility] Multispecialty Care - [address], [address] [place] [address] Julio Pulido MD [address] [place] [address] documented as of this encounter Goals Goal Patient Goal Type Associated Problems Recent Progress Patient-Stated? Author Health - patient able to perform ADLs independently General On track(2023 9:49 AM CDT) Dianne Corona, RN Note: 12/17/23: Patient stated she is independent with ASL's. Establish Plan for Symptom Monitoring-CHF General On track(2023 11:36 AM DIET AID) Dianne Corona, RN Note: Patient will recognize [...] Symptom Monitoring-COPD General On track(2023 11:36 AM DIET AID) Dianne Corona RN Note: Patient will [...] Symptom Monitoring-DM General On track(2023 4:33 PM DIET AID) Dianne Corona, RN Note: Patient will manage [...] Symptom Monitoring-HTN General On track(2023 4:33 PM DIET AID) Dianne Corona, RN Note: Patient will monitor [...] Rule Out 01/13/2022 01/13/2022 01/13/2022 12:48 PM DIET AID COVID-19 Rule Out 01/13/2022 01/13/2022 01/14/2022 12:15 AM DIET AID COVID-19 Rule Out 03/18/2022 03/18/2022 03/18/2022 12:27 PM DIET AID COVID-19 Rule Out 03/18/2022 03/18/2022 03/18/2022 12:57 PM DIET AID COVID-19 Rule Out 03/18/2022 03/18/2022 03/19/2022 1:58 PM DIET AID COVID-19 Rule Out 08/26/2022 08/26/2022 08/26/2022 4:56 PM CDT Assessment Noted Time PHQ-9 Depression Total Score: 0 05/25/19 9:23 AM CDT documented as of this encounter Care Teams Tripe Cooker Relationship Specialty Start Date End Date Sanjeev Webster DO [address] [place] [id number] PCP - General FAMILY PRACTICE 09/25/20 Dianne Johnson, RN [address] [place] [address] Custom Home Installer (Ambulatory) REGISTERED NURSE 08/14/20 documented as of this encounter
--- OUTSIDE RECORDS SUMMARY | 2024-03-15 01:05 | XMS_ITS | Encounter Summary ---
Author Organization [facility] Address [address] [place] [address]. [place] [address] [place] [address] Care Team Providers Care Computer Mechanic Name Role Phone Dianne Johnson RN Unavailable [phone] Sanjeev Webster DO Primary Care Provider + Encounter Details Date Type Department Care Team (Latest Contact Info) Description 10/21/2021 Scan HEALTH INFO SRVCS Scanned, Documents Social [...] Contact Info) Description 04/14/2024 2:00 PM SENIOR SOLUTIONS ENGINEER Office Visit [facility] Multispecialty Care - [address], [address] [place] [address] Julio Pulido MD [address] [place] [id number] documented as of this encounter Goals Goal Patient Goal Type Associated Problems Recent Progress Patient-Stated? Author Health - patient able to perform ADLs independently General On track(2023 9:49 AM CDT) Dianne Corona RN Note: 12/17/23: Patient stated she is independent with ASL's. Establish Plan for Symptom Monitoring-CHF General On track(2023 11:36 AM SENIOR SOLUTIONS ENGINEER) Dianne Corona RN Note: Patient will [...] Monitoring-COPD General On track(2023 11:36 AM SENIOR SOLUTIONS ENGINEER) Dianne Corona RN Note: Patient will [...] Monitoring-DM General On track(2023 4:33 PM SENIOR SOLUTIONS ENGINEER) Dianne Corona RN Note: Patient will [...] Monitoring-HTN General On track(2023 4:33 PM SENIOR SOLUTIONS ENGINEER) No Dianne Johnson RN Note: Patient will [...] documented as of this encounter Care Teams Computer Mechanic Relationship Specialty Start Date End Date Sanjeev Webster DO [address] [place] [id number] PCP - General FAMILY PRACTICE 09/25/20 Dianne Johnson, RN [address] [place] [id number] Laborer Driver (Ambulatory) REGISTERED NURSE 08/14/20 documented as of this encounter
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
--- OUTSIDE RECORDS SUMMARY | 2024-03-15 01:06 | XMS_ITS | Encounter Summary ---
Author Organization [facility] Address [facility] [place] [address] [place] [address] Care Team Providers Care Electric Motor Mechanic Name Role Phone Dianne Johnson RN Unavailable [phone] Sanjeev Webster DO Primary Care Provider + Reason for Visit * Reason Comments Anticoagulation Encounter Details Date Type Department Care Team (Late st Contact Info) Description 09/19/2021 2:20 PM CDT Allied Health/Nurse Visit [facility] Medical Group Family & Internal Medicine [address] [address] Sanjeev Webster DO [address] [place] [address] Anticoagulation Social History Tobacco Use Types [...] Rodriguez RN Active documented in this encounter Plan of Treatment Upcoming Encounters Date Type Department Care Team (Late st Contact Info) Description 04/14/2024 2:00 PM COMMODITY DIRECTOR Office Visit [facility] Medical Group Multispecialty Care - [facility] 3 [facility], [address] [place] [phone] Julio Pulido MD 3 [place] [address] documented as of this encounter Goals Goal Patient Goal Type Associated Problems Recent Progress Patient-Stated? Author Health - patient able to perform ADLs independently General On track(2023 9:49 AM CDT) Dianne Corona RN Note: 12/17/23: Patient stated she is independent with ASL's. Establish Plan for Symptom Monitoring-CHF General On track(2023 11:36 AM COMMODITY DIRECTOR) Dianne Corona RN Note: Patient will [...] Symptom Monitoring-COPD General On track(2023 11:36 AM COMMODITY DIRECTOR) Dianne Corona RN Note: Patient will [...] Symptom Monitoring-DM General On track(2023 4:33 PM COMMODITY DIRECTOR) Dianne Corona RN Note: Patient will [...] Symptom Monitoring-HTN General On track(2023 4:33 PM COMMODITY DIRECTOR) Dianne Corona RN Note: Patient will [...] Diagnosis Comments CORONAVIRUS (COVID 19) PCR Routine 09/19/2021 4:21 PM CDT Drug therapy CORONAVIRUS (COVID-19) ANTIGEN Routine 09/19/2021 Congestion of nasal sinus PROTHROMBIN TIME, FINGERSTICK Routine 09/19/2021 Drug therapy Atrial fibrillation with rapid ventricular response (CMS/HCC HHS/HCC) COLLECT.CAPILLARY (FNGR,HEEL,EAR) Routine 09/19/2021 Drug therapy Atrial fibrillation with rapid ventricular response (CMS/HCC HHS/HCC) documented in this encounter Results * CORONAVIRUS (COVID 19) PCR ([facility]) (09/19/2021 4:21 PM CDT) SPEC DESCRIPTION NASAL 09/20/19 4:22 PM CDT [facility] CORONAVIRUS SARS COV 2 PCR (RESP) NEGATIVE NEGATIVE 09/20/2021 1:55 PM CDT [facility] Comment: THE SARS-CoV-2 TEST HAS BEEN AUTHORIZED BY THE FDA UNDER AN EUA FOR USE BY AUTHORIZED LABORATORIES. PERFORMED BY NUCLEIC ACID AMPLIFICATION PCR FIRST TEST NO 09/19/2021 4:22 PM CDT [facility] EMPLOYED IN HEALTHCARE NO 09/19/2021 4:22 PM CDT [facility] SYMPTOMATIC DEFINED BY CDC YES 09/19/2021 4:22 PM CDT [facility] DATE OF SYMPTOM ONSET [id number]/19/2021 4:22 PM CDT [facility] HOSPITALIZATION STATUS NO 09/19/2021 4:22 PM CDT [facility] PATIENT IN ICU NO 09/19/2021 4:22 PM CDT [facility] RESIDENT OF [facility] NO 09/19/2021 4:22 PM CDT [facility] NASOPHARYNGEAL SWAB / Unknown 09/19/2021 4:21 PM CDT us Sanjeev Webster DO MICROBIOLOGY - GENERAL O RDERABLES Final Result [facility] [address] [place] [address], [place] [phone] * COLLECT.CAPILLARY (FNGR,HEEL,EAR) (09/19/2021) Sanjeev Webster DO PROCEDURES-UNRESULTED Fi nal Result * CORONAVIRUS (COVID-19) ANTIGEN (09/19/2021) CORONAVIRUS ANTIGEN IA NEGATIVE NEGATIVE [facility] Internal Control: VALID VALID [facility] Specimen from nose (specimen) NASAL STRUCTURE / Unknown 09/19/2021 us Sanjeev Webster DO MICROBIOLOGY - GENERAL O RDERABLES Final Result Performing Organization Address [facility]/ZIP Co de Phone Number [place] [phone] [place] [address], [place] * PROTIME/INR, FINGERSTICK (09/19/2021) Pathologist [facility] INR WHOLE BLOOD 2.70 [facility] 09/19/2021 us Sanjeev Webster DO LABORATORY Final Re sult Performing Organization Address [facility]/State/ZIP Co de Phone Number [facility] [address] [place] [address], [place] documented in this encounter Visit Diagnoses Diagnosis Drug therapy- Primary Encounter for long-term (current) use of other medications Congestion of nasal sinus Other diseases of nasal cavity and sinuses Atrial fibrillation with rapid ventricular response (CMS/HCC HHS/HCC) Atrial fibrillation documented in this encounter Additional Health Concerns Infection Onset Date Last Indicated Resolved Time COVID-19 Rule Out 09/19/2021 09/19/2021 09/20/2021 1:55 PM CDT Assessment Noted Time PHQ-9 Depression Total Score: 0 05/25/19 22 9:23 AM CDT documented as of this encounter Care Teams Electric Motor Mechanic Relationship Specialty Start Date End Date Sanjeev Webster DO [address] [place] [address] PCP - General FAMILY PRACTICE 09/25/20 Dianne Johnson, RN [facility] [place] [address] Technical Documentation Specialist (Ambulatory) REGISTERED NURSE 08/14/20 documented as of this encounter
--- OUTSIDE RECORDS SUMMARY | 2024-03-15 01:06 | XMS_ITS | Encounter Summary ---
Author Organization [facility] Address [address] [place] [address]. [place] [address] [place] [address] Care Team Providers Care Patient Service Representative Name Role Phone Dianne Johnson RN Unavailable [phone] Sanjeev Webster DO Primary Care Provider + Encounter Details Date Type Department Care Team (Latest Contact Info) Description 10/05/2021 Scan HEALTH INFO SRVCS Scanned, Documents Social [...] Contact Info) Description 04/14/2024 2:00 PM COAL OR ORE CONTROLLER Office Visit [facility] Medical Group Multispecialty Care - [facility] 3 [facility], [address] [place] [address] Julio Pulido MD 3 [place] [address] documented as of this encounter Goals Goal Patient Goal Type Associated Problems Recent Progress Patient-Stated? Author Health - patient able to perform ADLs independently General On track(2023 9:49 AM CDT) Dianne Corona RN Note: 12/17/23: Patient stated she is independent with ASL's. Establish Plan for Symptom Monitoring-CHF General On track(2023 11:36 AM COAL OR ORE CONTROLLER) Dianne Corona RN Note: Patient will [...] Monitoring-COPD General On track(2023 11:36 AM COAL OR ORE CONTROLLER) Dianne Corona RN Note: Patient will [...] Monitoring-DM General On track(2023 4:33 PM COAL OR ORE CONTROLLER) Dianne Corona RN Note: Patient will manage [...] Monitoring-HTN General On track(2023 4:33 PM COAL OR ORE CONTROLLER) Dianne Corona, RN Note: Patient will [...] as of this encounter Care Teams Patient Service Representative Relationship Specialty Start Date End Date Sanjeev Webster DO [address] [place] [address] PCP - General FAMILY PRACTICE 09/25/20 Dianne Johnson, RN [address] [place] [address] Group Underwriter (Ambulatory) REGISTERED NURSE 08/14/20 documented as of this encounter
--- OUTSIDE RECORDS SUMMARY | 2024-03-15 01:06 | XMS_ITS | Encounter Summary ---
Author Organization [facility] Address [address] [place] [address]. [place] [address] [place] [address] Care Team Providers Care Supervisor Adult Education Name Role Phone Dianne Johnson RN Unavailable [phone] Sanjeev Webster DO Primary Care Provider + Encounter Details Date Type Department Care Team (Latest Contact Info) Description 09/17/2021 Travel Social History Tobacco Use Types Packs/Day [...] suspected to have Coronavirus/COVID-19? No / Unsure 09/17/2021 7:11 PM CDT documented as of this encounter Plan of Treatment Upcoming Encounters Date Type Department Care Team (Late st Contact Info) Description 04/14/2024 2:00 PM CHILD AND ADOLESCENT THERAPIST Office Visit [facility] Medical Group Multispecialty Care - [address], [address] [place] [address] Julio Pulido MD 3 [place] [address] documented as of this encounter Goals Goal Patient Goal Type Associated Problems Recent Progress Patient-Stated? Author Health - patient able to perform ADLs independently General On track(2023 9:49 AM CDT) Dianne Corona RN Note: 12/17/23: Patient stated she is independent with ASL's. Establish Plan for Symptom Monitoring-CHF General On track(2023 11:36 AM CHILD AND ADOLESCENT THERAPIST) Dianne Corona RN Note: Patient will [...] Monitoring-COPD General On track(2023 11:36 AM CHILD AND ADOLESCENT THERAPIST) Dianne Corona, RN Note: Patient will recognize [...] Monitoring-DM General On track(2023 4:33 PM CHILD AND ADOLESCENT THERAPIST) Dianne Corona RN Note: Patient will [...] Monitoring-HTN General On track(2023 4:33 PM CHILD AND ADOLESCENT THERAPIST) Dianne Corona RN Note: Patient will monitor [...] as of this encounter Care Teams Supervisor Adult Education Relationship Specialty Start Date End Date Sanjeev Webster DO [address] [place] [id number] PCP - General FAMILY PRACTICE 09/25/20 Dianne Johnson RN [address] [place] [address] Continuous Improvement Specialist (Ambulatory) REGISTERED NURSE 08/14/20 documented as of this encounter
--- OUTSIDE RECORDS SUMMARY | 2024-03-15 01:06 | XMS_ITS | Encounter Summary ---
Author Organization [facility] Address [address] [place] [address]. [place] [address] [place] [address] Care Team Providers Care Nursing Program Chair Name Role Phone Dianne Johnson RN Unavailable [phone] Sanjeev Webster DO Primary Care Provider + Encounter Details Date Type Department Care Team (Latest Contact Info) Description 09/19/2021 - 09/19/2021 11:59 PM CDT Hospital Encounter [facility] [address] [place] [address] Sanjeev Webster DO [address] [place] [address] Discharge Disposition: Home or Self [...] PM CDT documented as of this encounter Medications at Time of Discharge acetaminophen (TYLENOL) 500 MG tablet Take 1 tablet (500 mg total) by mouth daily as needed. No more then 2500 mg per day. 1 Cholecalciferol (VITAMIN D3) 25 MCG (1000 UT) Cap Take 1 capsule (1,000 Units total) by mouth daily. albuterol sulfate HFA 108 (90 Base) MCG/ACT inhalerIndications: Chronic obstructive pulmonary disease, unspecified COPD type ([facility]) Inhale 2 puffs into the lungs every 6 (six) hours as needed for Wheezing. 18 g 1 2 10/11/19 22 ALPRAZolam 0.25 MG tabletIndications:A nxiety Take 1 tablet (0.25 mg total) by mouth 2 (two) times daily as needed for Anxiety. 30 tablet 2 10/11/19 22 amiodarone 200 MG tablet Take 100 mg by mouth daily. 0 09/27/19 22 amoxicillin-clavula debbi (AUGMENTIN) 875-125 MG tabletIndications:C ough Take 1 tablet (875 mg total) by mouth 2 (two) times daily for 7 days. 14 tablet 2 09/27/19 22 azelastine (AZELASTINE) 0.1 % nasal sprayIndications:Ch ronic frontal sinusitis,Seasonal allergic rhinitis, unspecified trigger 1 spray by Nasal route 2 (two) times daily. Use in each nostril as directed 30 mL 1 1 10/16/19 22 Blood Glucose Monitoring Suppl (ONE TOUCH ULTRA 2) w/Device KitIndications:Type 2 diabetes mellitus with diabetic peripheral angiopathy without gangrene, without long-term current use of insulin ([facility]) Use daily as directed 1 kit 1 10/16/19 22 CONTOUR NEXT TEST test strip USE 1 STRIP TO CHECK GLUCOSE THREE TIMES DAILY 0 10/16/19 22 FEROSUL 325 (65 Fe) MG tabletIndications:I elida deficiency anemia, unspecified iron deficiency anemia type Take 1 tablet by mouth once daily 90 tablet 2 10/08/19 22 fluticasone propionate 50 MCG/ACT nasal spray 2 sprays by Nasal route daily. 03/21/19 23 furosemide 20 MG tabletIndications:H ypertensive heart disease with congestive heart failure, unspecified heart failure type ([facility] HHS/HCC) Take 1 tab every other day. 90 tablet 1 2 10/22/19 22 gabapentin 300 MG capsuleIndications: Back pain Take 1 capsule (300 mg total) by mouth 2 (two) times daily. 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, without long-term current use of insulin ([facility] HHS/HCC) 1 strip by Other route daily as needed. 100 strip 1 10/16/19 22 HYDROcodone-acetami nophen 10-325 MG tabletIndications:C hronic Pain Take 1 tablet by mouth every 6 (six) hours as needed for Pain. Indications: Chronic Pain Do not take with alprazolam. No further refills until seen in office. 30 tablet 2 09/27/19 22 Lancets MiscIndications:Typ e 2 diabetes mellitus with diabetic peripheral angiopathy without gangrene, without long-term current use of insulin ([facility] HHS/HCC) Test daily as directed 100 each 1 1 10/16/19 22 lidocaine 5 %Indications:Neck pain Apply pain patch to affected area. Change after 12 hours. 6 patch 1 03/21/19 23 LISINOPRIL 40 MG tabletIndications:H ypertensive urgency Take 1 tablet by mouth once daily 90 tablet 1 2 11/06/19 22 methIMAzole 5 MG tabletIndications:H yperthyroidism Take 1 tablet (5 mg total) by mouth daily. 30 tablet 11 2 11/19/19 22 metoprolol succinate ER 25 MG 24 hr tabletIndications:A trial fibrillation with rapid ventricular response ([facility] HHS/HCC),Diastolic heart failure ([facility] HHS/HCC) Take 1 tablet (25 mg total) by mouth daily. 30 tablet 1 2 11/06/19 22 OMEPRAZOLE 20 MG capsuleIndications: GERD (gastroesophageal reflux disease) Take 1 capsule by mouth once daily 90 capsule 2 10/08/19 22 oxymetazoline 0.05 % nasal sprayIndications:Ch ronic frontal sinusitis,Seasonal allergic rhinitis, unspecified trigger Not to exceed 3 days. May use for 3 days then refrain for 3 days and repeat as needed. 20 mL 1 10/16/19 22 rosuvastatin 5 MG tabletIndications:H yperlipidemia, unspecified hyperlipidemia type Take 1 tablet (5 mg total) by mouth nightly at bedtime. 30 tablet 2 2 12/10/19 22 VENLAFAXINE XR 150 MG 24 hr capsuleIndications: Diabetic polyneuropathy associated with type 2 diabetes mellitus (CMS/HCC HHS/HCC),Mild episode of recurrent major depressive disorder (CMS/HCC) Take 1 capsule by mouth once daily 90 capsule 2 01/17/20 22 warfarin 1 MG tabletIndications:H /O mechanical aortic valve replacement Take 3 tablets (3 mg total) by mouth see administration instructions. With 6mg tablet on , fridays and mondays 270 tablet 1 1 10/16/19 22 warfarin 6 MG tabletIndications:R equires lifelong warfarin therapy,H/O mechanical aortic valve replacement Take 1 tablet (6 mg total) by mouth daily. 90 tablet 1 1 09/27/19 22 warfarin 6 MG tabletIndications:A trial fibrillation with rapid ventricular response (CMS/HCC HHS/HCC),Diastolic heart failure (CMS/HCC HHS/HCC) Take 1 tablet (6 mg total) by mouth daily. Take 6 mg every day except Thu and Thursday. Take 9 mg on Thu and Thursday 60 tablet 2 10/16/19 22 documented as of this encounter Plan of Treatment Upcoming Encounters Date Type Department Care Team (Late st Contact Info) Description 04/14/2024 2:00 PM SATELLITE DISH INSTALLER Office Visit [facility] Multispecialty Care - [address], [address] [place] [address] Julio Pulido MD [address] [place] [address] documented as of this encounter Goals Goal Patient Goal Type Associated Problems Recent Progress Patient-Stated? Author Health - patient able to perform ADLs independently General On track(2023 9:49 AM CDT) Dianne Corona RN Note: 12/17/23: Patient stated she is independent with ASL's. Establish Plan for Symptom Monitoring-CHF General On track(2023 11:36 AM SATELLITE DISH INSTALLER) Dianne Corona, RN Note: Patient will [...] Symptom Monitoring-COPD General On track(2023 11:36 AM SATELLITE DISH INSTALLER) Dianne Corona RN Note: Patient will [...] Symptom Monitoring-DM General On track(2023 4:33 PM SATELLITE DISH INSTALLER) Dianne Corona, RN Note: Patient will manage [...] Symptom Monitoring-HTN General On track(2023 4:33 PM SATELLITE DISH INSTALLER) No Dianne Johnson, RN Note: Patient will [...] as of this encounter Care Teams Nursing Program Chair Relationship Specialty Start Date End Date Sanjeev Webster DO [address] [place] [address] PCP - General FAMILY PRACTICE 09/25/20 Dianne Johnson, RN [address] [place] [address] Proposal Manager Writer (Ambulatory) REGISTERED NURSE 08/14/20 documented as of this encounter
--- OUTSIDE RECORDS SUMMARY | 2024-03-15 01:06 | XMS_ITS | Encounter Summary ---
Author Organization [facility] Address [facility] [place] [address] [place] [address] Care Team Providers Care Poultry Offal Worker Name Role Phone Dianne Johnson RN Unavailable [phone] Sanjeev Webster DO Primary Care Provider + Reason for Visit * Reason Onset Date Comments Results 09/20/2021 Encounter Details Date Type Department Care Team (Late st Contact Info) Description 09/20/2021 Telephone [facility] Family & Internal Medicine [place] [address] [place] [address] Sanjeev Webster DO [facility] [place] [address] Results Social History Tobacco Use [...] as of this encounter Progress Notes * Scarlett Guerrero MA - 09/20/2021 3:27 PM CDT Patient notified and v/u * Scarlett Guerrero MA - 09/20/2021 3:27 PM CDT ----- Message from Sanjeev Webster DO sent at 09/19/2021 4:04 PM CDT ----- Back within therapeutic range. Clarify current dosage; continue current dosage in interim and will make adjustments after clarification of current dosage. documented in this encounter Plan of Treatment Upcoming Encounters Date Type Department Care Team (Late st Contact Info) Description 04/14/2024 2:00 PM BRICK OFF BEARER Office Visit [facility] Multispecialty Care - [facility] [address] [facility], [address] [place] [phone] Julio Pulido MD [address] [place] [address] documented as of this encounter Goals Goal Patient Goal Type Associated Problems Recent Progress Patient-Stated? Author Health - patient able to perform ADLs independently General On track(2023 9:49 AM CDT) No Dianne Johnson RN Note: 12/17/23: Patient stated she is independent with ASL's. Establish Plan for Symptom Monitoring-CHF General On track(2023 11:36 AM BRICK OFF BEARER) Dianne Corona, RN Note: Patient will recognize [...] Symptom Monitoring-COPD General On track(2023 11:36 AM BRICK OFF BEARER) Dianne Corona RN Note: Patient will recognize [...] Symptom Monitoring-DM General On track(2023 4:33 PM BRICK OFF BEARER) Dianne Corona RN Note: Patient will manage [...] Symptom Monitoring-HTN General On track(2023 4:33 PM BRICK OFF BEARER) Dianne Corona RN Note: Patient will monitor [...] documented as of this encounter Care Teams Poultry Offal Worker Relationship Specialty Start Date End Date Sanjeev Webster DO [address] [place] [id number] PCP - General FAMILY PRACTICE 09/25/20 Dianne Johnson, RN [address] [place] [address] Aoc Director Combat Operations Officer (Ambulatory) REGISTERED NURSE 08/14/20 documented as of this encounter
--- OUTSIDE RECORDS SUMMARY | 2024-03-15 01:06 | XMS_ITS | Encounter Summary ---
Author Organization [facility] Address [facility] [place] [address] [place] [address] Care Team Providers Care Opal Miner Name Role Phone Dianne Johnson RN Unavailable [phone] Sanjeev Webster DO Primary Care Provider + Reason for Visit * Reason Onset Date Comments Follow Up Call 09/19/2021 Encounter Details Date Type Department Care Team (Late st Contact Info) Description 09/19/2021 Telephone [facility] Family & Internal Medicine [address] [address] Sanjeev Webster DO [address] [place] [address] Follow Up Call Social History Tobacco [...] Notes * Scarlett Guerrero MA - 09/20/2021 3:25 PM CDT Izzy notified and v/u * Sanjeev Webster DO - 09/19/2021 3:32 PM CDT She needs to see surgeon first to determine if she needs surgery. Anticoagulation can be handled accordingly then. * Dianne Johnson RN - 09/19/2021 2:29 PM CDT Patient wants to talk to nurse about upcoming appointment with Surgeon for gallbladder. She is scheduled on 10/09/21. Stated she is on Warfarin and doesn't know if she can be off Warfarinto have surgery done. FYI: She is coming up to the office now to get INR and COVID testing done. documented in this encounter Plan of Treatment Upcoming Encounters Date Type Department Care Team (Late st Contact Info) Description 04/14/2024 2:00 PM TRANSPLANT NURSE Office Visit [facility] Multispecialty Care - [facility] 3 [facility], [address] [place] [phone] Julio Pulido MD 3 [place] [address] documented as of this encounter Goals Goal Patient Goal Type Associated Problems Recent Progress Patient-Stated? Author Health - patient able to perform ADLs independently General On track(2023 9:49 AM CDT) Dianne Corona, RN Note: 12/17/23: Patient stated she is independent with ASL's. Establish Plan for Symptom Monitoring-CHF General On track(2023 11:36 AM TRANSPLANT NURSE) Dianne Corona RN Note: Patient will [...] Symptom Monitoring-COPD General On track(2023 11:36 AM TRANSPLANT NURSE) Dianne Corona RN Note: Patient will [...] Symptom Monitoring-DM General On track(2023 4:33 PM TRANSPLANT NURSE) Dianne Corona RN Note: Patient will [...] Symptom Monitoring-HTN General On track(2023 4:33 PM TRANSPLANT NURSE) Dianne Corona RN Note: Patient will monitor [...] documented as of this encounter Care Teams Opal Miner Relationship Specialty Start Date End Date Sanjeev Webster DO [address] [place] [address] PCP - General FAMILY PRACTICE 09/25/20 Dianne Johnson, RN [address] [place] [address] Cane Packer (Ambulatory) REGISTERED NURSE 08/14/20 documented as of this encounter
--- OUTSIDE RECORDS SUMMARY | 2024-03-15 01:06 | XMS_ITS | Encounter Summary ---
Author Organization [facility] Address [facility]6 [facility]. [place], [place] [address] [place] [address] Care Team Providers Care Contact Agent Name Role Phone Dianne Johnson RN Unavailable [phone] Sanjeev Webster DO Primary Care Provider + Reason for Visit * Reason Comments Anticoagulation Encounter Details Date Type Department Care Team (Late st Contact Info) Description 10/02/2021 1:40 PM CDT Allied Health/Nurse Visit [facility] Family & Internal Medicine [address] [address] Sanjeev Webster DO [address] [place] [address] Anticoagulation Social History Tobacco Use Types [...] suspected to have Coronavirus/COVID-19? No / Unsure 10/02/2021 1:27 PM CDT documented as of this encounter Plan of Treatment Upcoming Encounters Date Type Department Care Team (Late st Contact Info) Description 04/14/2024 2:00 PM STONE DECORATOR Office Visit [facility] Multispecialty Care - [facility] 3 [facility], [address] [place] [address] Julio Pulido MD 3 [place] [address] documented as of this encounter Goals Goal Patient Goal Type Associated Problems Recent Progress Patient-Stated? Author Health - patient able to perform ADLs independently General On track(2023 9:49 AM CDT) Dianne Corona RN Note: 12/17/23: Patient stated she is independent with ASL's. Establish Plan for Symptom Monitoring-CHF General On track(2023 11:36 AM STONE DECORATOR) Dianne Corona, RN Note: Patient will recognize [...] Symptom Monitoring-COPD General On track(2023 11:36 AM STONE DECORATOR) Dianne Corona, RN Note: Patient will recognize [...] Symptom Monitoring-DM General On track(2023 4:33 PM STONE DECORATOR) Dianne Corona, RN Note: Patient will manage [...] Symptom Monitoring-HTN General On track(2023 4:33 PM STONE DECORATOR) Dianne Corona, RN Note: Patient will monitor [...] Associated Diagnosis Comments PROTHROMBIN TIME, VENOUS Routine 10/02/2021 2:13 PM CDT Drug therapy Encounter for long-term (current) drug use Paroxysmal atrial flutter ([facility]) COLLECTION VENOUS BLOOD VENIPUNCTURE Routine 10/02/2021 1:56 PM CDT Drug therapy Encounter for long-term (current) drug use Paroxysmal atrial flutter ([facility]HS/[facility]) PROTHROMBIN TIME, FINGERSTICK Routine 10/02/2021 Drug therapy Encounter for long-term (current) drug use Paroxysmal atrial flutter ([facility]) COLLECT.CAPILLARY (FNGR,HEEL,EAR) Routine 10/02/2021 Drug therapy Encounter for long-term (current) drug use Paroxysmal atrial flutter (CMS/HCC HHS/HCC) documented in this encounter Results * (ABNORMAL) PROTIME/INR, VENOUS (10/02/2021 2:13 PM CDT) [facility] PROTIME 75.8(H) 9.3 - 11.6 SEC 10/02/2021 8:04 PM CDT [facility] INR 7.8(HH) 0.9 - 1.1 10/02/2021 8:04 PM CDT [facility] Comment: TREATMENT OR PROPHYLAXIS AGAINST: ?? THERAPEUTIC RANGE (INR): ?VENOUS THROMBOSIS ? 2.0-3.0 ?PULMONARY EMBOLUS ? 2.0-3.0 ?? MECHANICAL PROSTHETIC VALVES ? 2.5-3.5 CALLED CRITICAL VALUE TO DR JAY AT 2003 ON . 10/02/2021 2:13 PM CDT us Sanjeev Webster DO LABORATORY Final Re sult -[facility] [address] [place] [address], [place] [phone] * COLLECT.CAPILLARY (FNGR,HEEL,EAR) (10/02/2021) Sanjeev Webster DO PROCEDURES-UNRESULTED Fi nal Result * PROTIME/INR, FINGERSTICK (10/02/2021) INR WHOLE BLOOD 7.40 [facility] Comment:Provider informed, P atient going to ER due to symptoms, venous drawn. Performed recheck and level was 7.3. 10/02/2021 us Sanjeev Webster DO LABORATORY Sarbjit R esult - Final [facility] [address], documented in this encounter Visit Diagnoses Diagnosis Drug therapy- Primary Encounter for long-term (current) use of other medications Encounter for long-term (current) drug use Encounter for long-term (current) use of other medications Paroxysmal atrial flutter (CMS/HCC [facility]) Atrial flutter documented in this encounter Additional Health Concerns Assessment Noted Time PHQ-9 Depression Total Score: 0 05/25/19 22 9:23 AM CDT documented as of this encounter Care Teams Contact Agent Relationship Specialty Start Date End Date Sanjeev Webster DO [facility] [place] [address] PCP - General FAMILY PRACTICE 09/25/20 Dianne Johnson, RN [address] [place] [address] Aquatic Scientist (Ambulatory) REGISTERED NURSE 08/14/20 documented as of this encounter
--- OUTSIDE RECORDS SUMMARY | 2024-03-15 01:06 | XMS_ITS | Encounter Summary ---
Author Organization [facility] Address [facility]6 [facility] [place] [address] [place] [address] Care Team Providers Care Commissioned Police Officer Name Role Phone Dianne Johnson RN Unavailable [phone] Sanjeev Webster DO Primary Care Provider + Reason for Visit * Reason Onset Date Comments Lab Results 10/09/2021 Encounter Details Date Type Department Care Team (Late st Contact Info) Description 10/09/2021 Telephone [facility] Family & Internal Medicine [address] [address] Sanjeev Webster DO [facility] [place] [address] Lab Results Social History Tobacco [...] as of this encounter Progress Notes * Trixie Jose MA - 10/09/2021 1:21 PM CDT Patient contacted and is on 5 mg daily. She [facility] on 10/15/21 tn * Trixie Jose MA - 10/09/2021 1:19 PM CDT ----- Message from Sanjeev Webster DO sent at 10/08/2021 4:01 PM CDT ----- Therapeutic. Continue dose as was changed to during hospitalization and repeat in 1 week. documented in this encounter Plan of Treatment Upcoming Encounters Date Type Department Care Team (Late st Contact Info) Description 04/14/2024 2:00 PM PRECISION MARKET INSIGHTS Office Visit [facility] Mult[facility]pecialty Care - [facility] 3 [facility], [address] [place] [phone] Julio Pulido MD 3 [place] [address] documented as of this encounter Goals Goal Patient Goal Type Associated Problems Recent Progress Patient-Stated? Author Health - patient able to perform ADLs independently General On track(2023 9:49 AM CDT) Dianne Corona, RN Note: 12/17/23: Patient stated she is independent with ASL's. Establish Plan for Symptom Monitoring-CHF General On track(2023 11:36 AM PRECISION MARKET INSIGHTS) Dianne Corona, RN Note: Patient will recognize [...] Symptom Monitoring-COPD General On track(2023 11:36 AM PRECISION MARKET INSIGHTS) Dianne Corona RN Note: Patient will recognize [...] Symptom Monitoring-DM General On track(2023 4:33 PM PRECISION MARKET INSIGHTS) Dianne Corona RN Note: Patient will manage [...] Symptom Monitoring-HTN General On track(2023 4:33 PM PRECISION MARKET INSIGHTS) Dianne Corona RN Note: Patient will monitor [...] documented as of this encounter Care Teams Commissioned Police Officer Relationship Specialty Start Date End Date Sanjeev Webster DO [address] [place] [address] PCP - General FAMILY PRACTICE 09/25/20 Dianne Johnson, RN [address] [place], [place] [address] Piece Dyer (Ambulatory) REGISTERED NURSE 08/14/20 documented as of this encounter
--- OUTSIDE RECORDS SUMMARY | 2024-03-15 01:06 | XMS_ITS | Encounter Summary ---
Author Organization [facility] Address [address] [place] [address]. [place] [address] [place] [address] Care Team Providers Care Contract Admin Name Role Phone Dianne Johnson RN Unavailable [phone] Sanjeev Webster DO Primary Care Provider + Reason for Visit * Reason Onset Date Comments Rash, amoxicillin 09/25/2021 Encounter Details Date Type Department Care Team (Late st Contact Info) Description 09/25/2021 Telephone [facility] Family & Internal Medicine [place] [phone] [place] [address] Sanjeev Webster DO [facility]1 [place] [address] Rash, amoxicillin Social History Tobacco Use Types Packs/Day Years [...] Progress Notes * Scarlett Guerrero MA - 09/26/2021 8:00 AM CDT Patient notified and v/u * Scarlett Guerrero MA - 09/25/2021 3:20 PM CDT lmtc 09/25/21 * Sanjeev Webster DO - 09/25/2021 2:54 PM CDT She can stop it for now. * Adrianne Alford - 09/25/2021 2:09 PM CDT Patient was prescribed Amoxicillin for a cold. States that she has a rash on her legs/ feet. Patient has today and tomorrow left to take. States that she is starting to feel better. Should patient finishing taking it today and tomorrow? documented in this encounter Plan of Treatment Upcoming Encounters Date Type Department Care Team (Late st Contact Info) Description 04/14/2024 2:00 PM SALES DATA ANALYST Office Visit [facility] Multispecialty Care - [facility] 3 [facility], [address] [place] [phone] Julio Pulido MD 3 [place] [address] documented as of this encounter Goals Goal Patient Goal Type Associated Problems Recent Progress Patient-Stated? Author Health - patient able to perform ADLs independently General On track(2023 9:49 AM CDT) Dianne Corona RN Note: 12/17/23: Patient stated she is independent with ASL's. Establish Plan for Symptom Monitoring-CHF General On track(2023 11:36 AM SALES DATA ANALYST) Dianne Corona RN Note: Patient [...] Symptom Monitoring-COPD General On track(2023 11:36 AM SALES DATA ANALYST) Dianne Corona RN Note: Patient [...] Symptom Monitoring-DM General On track(2023 4:33 PM SALES DATA ANALYST) Dianne Corona RN Note: Patient [...] Symptom Monitoring-HTN General On track(2023 4:33 PM SALES DATA ANALYST) No Dianne Johnson, RN Note: Patient will [...] as of this encounter Care Teams Contract Admin Relationship Specialty Start Date End Date Sanjeev Webster DO [address] [place] [address] PCP - General FAMILY PRACTICE 09/25/20 Dianne Johnson, RN [address] [place] [address] Air Value Tester (Ambulatory) REGISTERED NURSE 08/14/20 documented as of this encounter
--- OUTSIDE RECORDS SUMMARY | 2024-03-15 01:06 | XMS_ITS | Encounter Summary ---
Author Organization [facility] Address [address] [place] [address]. [place] [address] [place] [address] Care Team Providers Care Senior Java Web Developer Name Role Phone Dinane Johnson RN Unavailable [phone] Sanjeev Webster DO Primary Care Provider + Encounter Details Date Type Department Care Team (Latest Contact Info) Description 09/13/2021 Travel Social History Tobacco Use Types Packs/Day [...] suspected to have Coronavirus/COVID-19? No / Unsure 09/13/2021 9:33 AM CDT documented as of this encounter Plan of Treatment Upcoming Encounters Date Type Department Care Team (Late st Contact Info) Description 04/14/2024 2:00 PM ADVERTISING EDITOR Office Visit [facility] Medical Group Multispecialty Care - [address], [address] [place] [address] Julio Pulido MD [address] [place] [address] documented as of this encounter Goals Goal Patient Goal Type Associated Problems Recent Progress Patient-Stated? Author Health - patient able to perform ADLs independently General On track(2023 9:49 AM CDT) Dianne Corona RN Note: 12/17/23: Patient stated she is independent with ASL's. Establish Plan for Symptom Monitoring-CHF General On track(2023 11:36 AM ADVERTISING EDITOR) Dianne Corona RN Note: Patient will recognize [...] Symptom Monitoring-COPD General On track(2023 11:36 AM ADVERTISING EDITOR) Dianne Corona, RN Note: Patient will recognize [...] Symptom Monitoring-DM General On track(2023 4:33 PM ADVERTISING EDITOR) Dianne Corona RN Note: Patient will manage [...] Symptom Monitoring-HTN General On track(2023 4:33 PM ADVERTISING EDITOR) Dianne Corona RN Note: Patient will monitor [...] as of this encounter Care Teams Senior Java Web Developer Relationship Specialty Start Date End Date Sanjeev Webster DO [address] [place] [address] PCP - General FAMILY PRACTICE 09/25/20 Dianne Johnson RN [address] [place] [address] Train Caller (Ambulatory) REGISTERED NURSE 08/14/20 documented as of this encounter
--- OUTSIDE RECORDS SUMMARY | 2024-03-15 01:06 | XMS_ITS | Encounter Summary ---
Author Organization [facility] Address [address] [place] [address]. [place] [address] [place] [address] Care Team Providers Care Keno Terminal Operator Name Role Phone Dianne Johnson RN Unavailable [phone] Sanjeev Webster DO Primary Care Provider + Reason for Visit * Reason Onset Date Comments TCM 10/08/2021 Santos- 2-10/05/21- Diverticulitis. Encounter Details Date Type Department Care Team (Late st Contact Info) Description 10/08/2021 Telephone [facility] Medical Group Family & Internal Medicine [address] [address] Sanjeev Webster DO [address] [place] [address] TCM (Santos- 10/02/21-10/05/21- Diverticulitis. ) Social History Tobacco Use Types Packs/Day [...] Notes * Dianne Johnson RN - 10/09/2021 7:12 AM CDT Patient was D/C from [place] on 10/05/21. Unable to complete TCM call back as this has been past two business days. Will contact patient for a hospital follow up and get records. Thank you. * Natalee Brown RN - 10/08/2021 5:11 PM CDT Called and spoke with patient regarding hospital stay. Will reach out to patient care team to see if they will do TCM or if this nurse will call patient back for TCM. Opportunity given for all questions to be answered, no further needs voiced at this time. LL-10/08/21 documented in this encounter Plan of Treatment Upcoming Encounters Date Type Department Care Team (Late st Contact Info) Description 04/14/2024 2:00 PM PLOW AND BORING MACHINE TENDER Office Visit [facility] Medical Group Multispecialty Care - [facility] 3 [facility], [address] [place] [phone] Julio Pulido MD 3 [place] [address] documented as of this encounter Goals Goal Patient Goal Type Associated Problems Recent Progress Patient-Stated? Author Health - patient able to perform ADLs independently General On track(2023 9:49 AM CDT) Dianne Corona, RN Note: 12/17/23: Patient stated she is independent with ASL's. Establish Plan for Symptom Monitoring-CHF General On track(2023 11:36 AM PLOW AND BORING MACHINE TENDER) Dianne Corona RN Note: Patient will [...] Monitoring-COPD General On track(2023 11:36 AM PLOW AND BORING MACHINE TENDER) Dianne Corona RN Note: Patient will [...] Monitoring-DM General On track(2023 4:33 PM PLOW AND BORING MACHINE TENDER) Dianne Corona RN Note: Patient will [...] Monitoring-HTN General On track(2023 4:33 PM PLOW AND BORING MACHINE TENDER) No Dianne Johnson, RN Note: Patient will [...] documented as of this encounter Care Teams Keno Terminal Operator Relationship Specialty Start Date End Date Sanjeev Webster DO [address] [place] [address] PCP - General FAMILY PRACTICE 09/25/20 Dianne Johnson, RN [facility]1 [place] [address] Manager Completions (Ambulatory) REGISTERED NURSE 08/14/20 documented as of this encounter
--- OUTSIDE RECORDS SUMMARY | 2024-03-15 01:06 | XMS_ITS | Encounter Summary ---
Author Organization [facility] Address [address] [place] [address]. [place] [address] [place] [address] Care Team Providers Care Assessment Manager Name Role Phone Dianne Johnson RN Unavailable [phone] Sanjeev Webster DO Primary Care Provider + Reason for Visit * Reason Comments Ultrasound (SCAN) CT (SCAN) Vascular Lab Study (SCAN) Encounter Details Date Type Department Care Team (Late Contact Info) Description 10/03/2021 Scan HEALTH INFO SRVCS Scanned, Documents Ultrasound (SCAN); CT (SCAN); Vascular Lab Study (SCAN) Social History Tobacco [...] st Contact Info) Description 04/14/2024 2:00 PM NEW CAR MAKE READY WORKER Office Visit [facility] Medical Group Multispecialty Care - [facility] 3 [facility], [address] [place] [address] Julio Pulido MD 3 [place] [address] documented as of this encounter Goals Goal Patient Goal Type Associated Problems Recent Progress Patient-Stated? Author Health - patient able to perform ADLs independently General On track(2023 9:49 AM CDT) Dianne Corona RN Note: 12/17/23: Patient stated she is independent with ASL's. Establish Plan for Symptom Monitoring-CHF General On track(2023 11:36 AM NEW CAR MAKE READY WORKER) Dianne Corona RN Note: Patient will [...] Symptom Monitoring-COPD General On track(2023 11:36 AM NEW CAR MAKE READY WORKER) Dianne Corona RN Note: Patient will [...] Symptom Monitoring-DM General On track(2023 4:33 PM NEW CAR MAKE READY WORKER) Dianne Corona, RN Note: Patient will manage [...] Symptom Monitoring-HTN General On track(2023 4:33 PM NEW CAR MAKE READY WORKER) Dianne Corona, RN Note: Patient will [...] Priority Date/Time Associated Diagnosis Comments CT GENERIC 10/03/2021 VASCULAR LAB GENERIC (SCAN ORDER) 10/03/2021 ULTRASOUND GENERIC (SCAN ORDER) 10/03/2021 documented in this encounter Results * VASCULAR LAB GENERIC (10/03/2021) 10/03/2021 Narrative 10/03/2021 Ordered by an unspecified provider. us Documents Scanned SCANNING Final Result * ULTRASOUND GENERIC (10/03/2021) Anatomical Region Laterality Modality Other 10/03/2021 Narrative 10/03/2021 Ordered by an unspecified provider. us Documents Scanned SCANNING Final Result * CT GENERIC (10/03/2021) Anatomical Region Laterality Modality Other 10/03/2021 Narrative 10/03/2021 Ordered by an unspecified provider. us Documents Scanned SCANNING Final Result documented in this encounter Visit Diagnoses Not on filedocumented in this encounter Additional Health Concerns Assessment Noted Time PHQ-9 Depression Total Score: 0 05/25/19 22 9:23 AM CDT documented as of this encounter Care Teams Assessment Manager Relationship Specialty Start Date End Date Sanjeev Webster DO [address] [place] [address] PCP - General FAMILY PRACTICE 09/25/20 Dianne Johnson, RN [address] [place] [address] Miniature Train Driver (Ambulatory) REGISTERED NURSE 08/14/20 documented as of this encounter
--- OUTSIDE RECORDS SUMMARY | 2024-03-15 01:06 | XMS_ITS | Encounter Summary ---
Author Organization [facility] Address [facility] [facility] [place] [address] [place] [address] Care Team Providers Care Log Raft Worker Name Role Phone Dianne Johnson RN Unavailable [phone] Sanjeev Webster DO Primary Care Provider + Reason for Visit * Reason Onset Date Comments Lab Results 09/26/2021 Encounter Details Date Type Department Care Team (Late st Contact Info) Description 09/26/2021 Telephone [facility] Medical Group Family Medicine [facility] [address] [place] [address] Bebe Hammond MD [address] [place] [address] Lab Results Social History Tobacco Use Types [...] suspected to have Coronavirus/COVID-19? No / Unsure 09/26/2021 10:42 AM CDT documented as of this encounter Progress Notes * Bebe Hammond MD - 09/26/2021 8:15 PM CDTSummary: elevated ED Called pt about elevated INR, instructed to go to ED for treatment. And to call PCM in the morning.Also told her not to take her warafin tonight. documented in this encounter Plan of Treatment Upcoming Encounters Date Type Department Care Team (Late st Contact Info) Description 04/14/2024 2:00 PM GYMNASTICS COACH OR INSTRUCTOR Office Visit [facility] Medical Group Multispecialty Care - [facility] 3 [facility], [address] [place] [phone] Julio Pulido MD 3 [place] [address] documented as of this encounter Goals Goal Patient Goal Type Associated Problems Recent Progress Patient-Stated? Author Health - patient able to perform ADLs independently General On track(2023 9:49 AM CDT) Dianne Corona, RN Note: 12/17/23: Patient stated she is independent with ASL's. Establish Plan for Symptom Monitoring-CHF General On track(2023 11:36 AM GYMNASTICS COACH OR INSTRUCTOR) Dianne Corona, RN Note: Patient will [...] Symptom Monitoring-COPD General On track(2023 11:36 AM GYMNASTICS COACH OR INSTRUCTOR) Dianne Corona RN Note: Patient will [...] Symptom Monitoring-DM General On track(2023 4:33 PM GYMNASTICS COACH OR INSTRUCTOR) Dianne Corona RN Note: Patient will [...] Symptom Monitoring-HTN General On track(2023 4:33 PM GYMNASTICS COACH OR INSTRUCTOR) Dianne Corona RN Note: Patient will [...] as of this encounter Care Teams Log Raft Worker Relationship Specialty Start Date End Date Sanjeev Webster DO [address] [place] [address] PCP - General FAMILY PRACTICE 09/25/20 Dianne Johnson, RN [address] [place] [address] Home Planning Consultant Salesperson (Ambulatory) REGISTERED NURSE 08/14/20 documented as of this encounter
--- OUTSIDE RECORDS SUMMARY | 2024-03-15 01:06 | XMS_ITS | Encounter Summary ---
Author Organization [facility] Address [facility] [place] [address] [place] [address] Care Team Providers Care Wool Hat Finisher Name Role Phone Johnson Dianne R RN Unavailable [phone] Sanjeev Webster DO Primary Care Provider + Reason for Visit * Reason Comments [facility] fo r SOB, OLIVE, and supratherapeutic INR Dizziness Anticoagulation Patient needs INR ch ecked today. Shortness Of Breath With exertion Chest Pain X 3 days. She also r eports having indegestion. Encounter Details Date Type Department Care Team (Latest Contact Info) Description 10/15/2021 10:40 AM CDT Office Visit [facility] Medical Group Family & Internal Medicine [address] [phone] Sanjeev Webster DO [address] [place] [address] [facility] ([facility] for SOB, OLIVE, and supratherapeutic INR); Dizziness; Anticoagulation (Patient needs INR checked today.); Shortness Of Breath (With exertion); Chest Pain (X 3 days. She also reports having indegestion. ) Social History Tobacco Use Types Packs/Day [...] Sign Reading Time Taken Comments Blood Pressure 120/60 10/15/2021 11:15 AM CDT Pulse 114 10/15/2021 11:15 AM CDT Temperature 36.9 ??C (98.4 ??F) 10/15/2021 11:15 AM C DT Respiratory Rate 16 10/15/2021 11:15 AM CDT Oxygen Saturation 97% 10/15/2021 11:15 AM CDT Inhaled Oxygen Concentration - - Weight 83.7 kg (184 lb 8 oz) 10/15/2021 11:15 AM CDT Height 162.6 cm (5' 4 ) 10/15/2021 11:15 AM CDT Body Mass Index 31.67 10/15/2021 11:15 AM CDT documented in this encounter Progress Notes * Sanjeev Webster, DO - 10/15/2021 10:40 AM CDT Images from the original note were not included. GENERAL OFFICE VISIT Encounter Date: 10/15/2021 Chief Complaint: 76-year-old female presents for TCM ([facility] for SOB, OLIVE, and supratherapeutic INR), Dizziness, Anticoagulation (Patient needs INR checked today.), Shortness Of Breath (With exertion), andChest Pain (X 3 days. She also reports having indegestion. ) History of Present Illness: Pt presents for hospital follow-up. Pt had OLIVE, hypotension, supratherapeutic INR, hyperkalemia, CHF, diverticulitis, and A fib. Pt was discharged on Augmentin, of which pt had been on around 09/19/21. Today, pt is having worsened chest pain that is in the middle and substernal. Pt is notably SOB and having dizziness as well. Pt is still taking Augmentin per her report. Pt is unsure if she is taking amiodarone at this time; full discharge summary is not available. Pt's pulse is notably elevated. ROS: Review of Systems Constitutional: Negative for fever. Respiratory: Positive for shortness of breath. Cardiovascular: See HPI Neurological: Positive for dizziness. Medications: Current Facility-Administered Medications on File Prior to Visit Medication ??? denosumab (PROLIA) injection 60 mg Current Outpatient Medications on File Prior to [...] (two) times daily asneeded for Anxiety. ??? azelastine (AZELASTINE) 0.1 % nasal spray 1 spray by Nasal route 2 (two) times daily. Use in each nostril as directed ??? Blood Glucose Monitoring Suppl (ONE TOUCH ULTRA 2) w/Device Kit Use daily as directed ??? Cholecalciferol (VITAMIN D3) 25 MCG (1000 UT) Cap Take 1,000 Units by mouth daily. ??? CONTOUR NEXT TEST test strip USE 1 STRIP TO CHECK GLUCOSE THREE TIMES DAILY ??? FEROSUL 325 (65 Fe) MG tablet Take 1 tablet by mouth once daily ??? fluticasone propionate 50 MCG/ACT nasal spray 2 sprays by Nasal route daily. ??? furosemide 20 MG tablet Take 1 tab every other day. ??? gabapentin 300 MG capsule Take 1 capsule (300 mg total) by mouth 2 (two) times daily. ??? Glucose Blood test strip 1 strip by Other route daily as needed. ??? HYDROcodone-acetaminophen (NORCO) 10-325 MG tablet Take 1 tablet by mouth every 6 (six) hours as needed for Pain. Indications: Chronic Pain Do not take with alprazolam. No further refills until seen in office. ??? Lancets Misc Test daily as directed ??? lidocaine 5 % Apply pain patch to affected area. Change after 12 hours. ??? LISINOPRIL 40 MG tablet Take 1 tablet by mouth once daily ??? methIMAzole 5 MG tablet Take 1 tablet (5 mg total) by mouth daily. ??? metoprolol succinate ER 25 MG 24 hr tablet Take 1 tablet (25 mg total) by mouth daily. ??? omeprazole (PRILOSEC) 20 MG capsule Take 1 capsule by mouth once daily ??? oxymetazoline 0.05 % nasal spray Not to exceed 3 days. May use for 3 days then refrain for 3 days and repeat as needed. ??? rosuvastatin 5 MG tablet Take 1 tablet (5 mg total) by mouth nightly at bedtime. ??? VENLAFAXINE XR 150 MG 24 hr capsule Take 1 capsule by mouth once daily ??? warfarin 1 MG tablet Take 3 tablets (3 mg total) by mouth see administration instructions. Glet2vj tablet on , fridays and mondays (Patient taking differently: Take 35 mg by mouth see administration instructions. 5 tablets daily) Allergies Allergen Reactions ??? Atorvastatin Leg Pain [...] [place] without angina pectoris ??? Diabetes mellitus [...] with current pathological fracture ??? Care Management Past Medical History: Diagnosis Date ??? Aneurysm [...] ??? Father ??? Mother Objective: Filed Vitals: 10/15/21 1115 BP: 120/60 Pulse: 114 Resp: 16 Temp: 98.4 ??F (36.9 ??C) TempSrc: Skin SpO2: 97% Weight: 83.7 kg (184 lb 8 oz) Height: 5' 4 (1.626 m) Physical Exam Vitals and nursing note reviewed. Constitutional: Appearance: She is well-developed. Comments: Mildly ill appearing HENT: Head: Normocephalic and atraumatic. Right Ear: External ear normal. Left Ear: External ear normal. Eyes: Conjunctiva/sclera: Conjunctivae normal. Cardiovascular: Rate and Rhythm: Tachycardia present. Rhythm irregular. Heart sounds: Normal heart sounds. No murmur heard. No friction rub. No gallop. Pulmonary: Effort: Pulmonary effort is normal. Breath sounds: Normal breath sounds. Abdominal: Palpations: Abdomen is soft. Tenderness: There is no abdominal tenderness. Assessment & Plan: Radha was seen today for tcm, dizziness, anticoagulation, shortness of breath and chest pain. Diagnoses and all orders for this visit: Atrial fibrillation with rapid ventricular response (CMS/HCC) Other chest pain - Cancel: ELECTROCARDIOGRAM (NON MIDMARK ACQUIRED) Hyperthyroidism Chronic anticoagulation - Cancel: PROTIME/INR, FINGERSTICK Discussion & Summary: Discussed symptoms and rest and benefits of different treatment options. After discussion of risk and benefits, patient will be driven by personal vehicle to [facility] emergency room for further evaluation for concern for A. fib with RVR with possible thyrotoxicosis. Discussed case with at [facility] ER and is aware of situation. Will have patient follow-up depending upon results of this ER evaluation. Patient and friend verbalized understanding. I spent 30 minutes today reviewing the patient's medical record, obtaining history, performing an exam, documenting in the medical record, referring and/or communicating with other health care providers, counseling and educating the patient/family/caregiver, reviewing and communicating test resultsand coordination of care. Sanjeev Webster DO documented in this encounter Plan of Treatment Upcoming Encounters Date Type Department Care Team (Late st Contact Info) Description 04/14/2024 2:00 PM INTRANET SUPPORT Office Visit [facility] Medical Group Multispecialty Care - [facility] 3 [facility], [address] [place] [phone] Julio Pulido MD [address] [place] [address] documented as of this encounter Goals Goal Patient Goal Type Associated Problems Recent Progress Patient-Stated? Author Health - patient able to perform ADLs independently General On track(2023 9:49 AM CDT) Dianne Corona RN Note: 12/17/23: Patient stated she is independent with ASL's. Establish Plan for Symptom Monitoring-CHF General On track(2023 11:36 AM INTRANET SUPPORT) Dianne Corona RN Note: Patient will [...] Symptom Monitoring-COPD General On track(2023 11:36 AM INTRANET SUPPORT) Dianne Corona RN Note: Patient will [...] Symptom Monitoring-DM General On track(2023 4:33 PM INTRANET SUPPORT) Dianne Corona RN Note: Patient will [...] Symptom Monitoring-HTN General On track(2023 4:33 PM INTRANET SUPPORT) No Dianne Johnson, RN Note: Patient will monitor B/P several times per week , record readings and report to physician or CC if B/P consistently >130/80 Take your medications as prescribed. Follow up with your provider as scheduled. Take your blood pressure at least several times a week if able. documented as of this encounter Visit Diagnoses Diagnosis Atrial fibrillation with rapid ventricular response ([facility]/HCC HHS/HCC)- Primary Atrial fibrillation Other chest pain Hyperthyroidism Thyrotoxicosis without mention of goiter or other cause, without mention of thyrotoxic crisis or storm Chronic anticoagulation Encounter for long-term (current) use of anticoagulants documented in this encounter Additional Health Concerns Assessment Noted Time PHQ-9 Depression Total Score: 0 05/25/19 22 9:23 AM CDT documented as of this encounter Care Teams Wool Hat Finisher Relationship Specialty Start Date End Date Sanjeev Webster DO [address] [place] [address] PCP - General FAMILY PRACTICE 09/25/20 Dianne Johnson, RN [address] [place] [address] Diesel Mechanic Farm (Ambulatory) REGISTERED NURSE 08/14/20 documented as of this encounter
--- OUTSIDE RECORDS SUMMARY | 2024-03-15 01:06 | XMS_ITS | Encounter Summary ---
Author Organization [facility] Address [facility] [place] [address] [place] [address] Care Team Providers Care Poultry Inspector Name Role Phone Dianne Johnson RN Unavailable [phone] Sanjeev Webster DO Primary Care Provider + Reason for Visit * Reason Onset Date Comments Follow Up Call 09/19/2021 Encounter Details Date Type Department Care Team (Late st Contact Info) Description 09/19/2021 Telephone [facility] Medical Group Family & Internal Medicine [address] [address] Sanjeev Webster DO [address] [place] [address] Follow Up Call Social History Tobacco [...] Progress Notes * Dianne Johnson RN - 09/19/2021 2:24 PM CDT Patient aware Augmentin with Warfarin may increase the risk of bleeding. Informed to come up to theoffice to get INR, rapid and PCR COVID testing.. Stated office is calling her now. Reviewed note and Trixie contacted patient. * Trixie Castillo MA - 09/19/2021 2:18 PM CDTAddended by: TRIXIE CASTILLO on: 09/19/2021 02:18 PM Modules accepted: Orders * Trixie Castillo MA - 09/19/2021 2:17 PM CDT Patient contacted and will head up here for testing. tn * Sanjeev Webster DO - 09/19/2021 12:38 PM CDT 1. That's fine by me. 2. Recommend COVID testing (rapid and PCR) and can do Augmentin 875-125 mg BID with food for 7 days. * Dianne Johnson RN - 09/19/2021 11:58 AM CDT Please address the following and contact patient. Thank you. Contacted patient and she prefers to have manage her Warfarin and get INR's at his office. Stated I don't want to lose as my Station Gateman. Explained to patient will manage Warfarin to make it easier on her but she will continue to follow up with for Cardiology. Patient hasn't had INR checked today. She would like to have it checked at PCP office today. Stated she had it checked last month at PCP office. Please call her and let her know if shecan come in and have this checked. 2. Patient stated she is not feeling well today. C/O Head cold. Reports clear nasal drainage, andcoughing up a lot of clear, thick mucus. Denies fever or chills. She's requesting 's recommendations. Contacted Ryanne HUNTER at office and she is aware will manage Warfarin. Explained about hyperthyroidism and beta blockers. Ryanne HUNTER verbalizes understanding. * Sanjeev Webster DO - 09/19/2021 11:37 AM CDT Pt hasn't always consistently obtained PT/INR, so they were frequently obtained by us in-between. I'm okay with taking over if this is easier for patient. Ana Maria Hess NP writes in her message hypothyroidism, but it is for hyperthyroidism. We typically start beta-blockers to help kassi the concerning clinical findings that can occur in hyperthyroidism (tachycardia, palpitations, heat intolerance, etc.). I suspect this is the source of confusion. * Dianne Johnson RN - 09/19/2021 8:48 AM CDT Images from the original note were not included. Spoke to patient last night after being seen at [facility] ER on 09/17/21 and INR was 6.8. Patient stated she was holding Warfarin last night and getting an INR today. She is confused who is managing her INR. 09/19: Contacted Ryanne HUNTER with office. She stated 's office was managing INR'sbut when patient was seen by on 09/12/21 his note states PCP managing Warfarin. [facility] and office is filling Warfarin. 1. Ryanne RN stated she would like clarification if PCP is managing Warfarin and will be checking INR's or 's office can manage. Stating only one Provider needs to order Warfarin and check INR's. Please advise and CC will reach out to Ryanne with clarification. 2. Ryanne stated she received a confusing message from PCP office on 08/30/21. Stating the caller from office reports recent labs show hyperthyroidism, patient on Amiodarone and PCP wantsto add a beta lexy, due to hyperthroid. She sent the message to the Cardiology MACHINE TESTER and the MACHINE TESTER stated the following: Ryanne RN would like some clarification about this message as she is confused as to what was wanting from Cardiology. Please advise on questions one and two. front desk coordinator will [facility]. Thank you, Blanca documented in this encounter Plan of Treatment Upcoming Encounters Date Type Department Care Team (Late st Contact Info) Description 04/14/2024 2:00 PM RIBBON BLOCKMAKER Office Visit [facility] Medical Group Multispecialty Care - [facility] [address] [facility], [address] [place] [id number] Julio Pulido MD [address] [place] [address] documented as of this encounter Goals Goal Patient Goal Type Associated Problems Recent Progress Patient-Stated? Author Health - patient able to perform ADLs independently General On track(2023 9:49 AM CDT) Dianne Corona RN Note: 12/17/23: Patient stated she is independent with ASL's. Establish Plan for Symptom Monitoring-CHF General On track(2023 11:36 AM RIBBON BLOCKMAKER) Dianne Corona RN Note: Patient will recognize [...] Symptom Monitoring-COPD General On track(2023 11:36 AM RIBBON BLOCKMAKER) Dianne Corona RN Note: Patient will recognize [...] Symptom Monitoring-DM General On track(2023 4:33 PM RIBBON BLOCKMAKER) Dianne Corona RN Note: Patient will manage [...] Symptom Monitoring-HTN General On track(2023 4:33 PM RIBBON BLOCKMAKER) Dianne Corona RN Note: Patient will monitor B/P several times per week , record readings and report to physician or CC if B/P consistently >130/80 Take your medications as prescribed. Follow up with your provider as scheduled. Take your blood pressure at least several times a week if able. documented as of this encounter Visit Diagnoses Diagnosis Cough- Primary documented in this encounter Additional Health Concerns Assessment Noted Time PHQ-9 Depression Total Score: 0 05/25/19 22 9:23 AM CDT documented as of this encounter Care Teams Poultry Inspector Relationship Specialty Start Date End Date Sanjeev Webster DO [address] [place] [address] PCP - General FAMILY PRACTICE 09/25/20 Dianne Johnson, RN [address] [place] [address] Audio/Visual Manager (Ambulatory) REGISTERED NURSE 08/14/20 documented as of this encounter
--- OUTSIDE RECORDS SUMMARY | 2024-03-15 01:06 | XMS_ITS | Encounter Summary ---
[facility] Address [facility] [place] [address] [place] [address] Care Team Providers Care Pocket Flap Creasing Machine Operator Name Role Phone Casey Johnson RN Unavailable [phone] Sanjeev Webster DO Primary Care Provider + Reason for Visit * Reason Onset Date Comments Care Management 09/18/2021 ER F/U 09/18/2021 Encounter Details Date Type Department Care Team (Late st Contact Info) Description 09/18/2021 Patient Outreach [facility] Medical Group Family & Internal Medicine [address] [address] Casey Johnson RN [address] [place] [address] Care Management; ER F/U Social History Tobacco Use Types Packs/Day Years [...] as of this encounter Progress Notes * Casey Johnson RN - 09/18/2021 6:54 AM CDT Images from the original note were not included. Emergency Room Visit Follow Up Phone Call Date of ER Visit: 09/17-09/18 at [facility]. Brief Description of ER Visit: Presents to the ED today for evaluation of upper abdominal pain in the middle and right quadrant. Patient states she was told she has gallstones. She states the pain is worsened and her primary told her to come here. Denies any fever or chills. Denies any chest pain or shortness of breath. Denies any nausea, vomiting diarrhea. Patient status: Patient stated she continues to have a little pain now but not as strong as it's been. Stated sheate chicken and dumplings with the fat off the chicken. Educated patient in detail about gallbladder diet and gallstones. Patient is scheduled to see Dr.Matthew Gonzales [place] on 10/09/21 at 3:30 PM. Patient stated she received a call about the appointment but she is on Warfarin and doesn't know if she can have surgery done. Patient stated today she's been tired. Stated she has a hx of low iron levels and wants to know if wants to check it. Informed patient that CC will reach out to office to address. 09/19/21: Contacted office to ask if patient can come in for COVID testing and INR today. Patient was asking about checking iron levels. Stating she has a hx of low iron. next to PSR and stated he will discuss hx of low iron levels at upcoming appointment on 09/26/21. Stated to come in now for INR and COVID testing. 09/19/21: Contacted patient and she is aware. Review D/C instructions: Yes -Educated on gallbladder diet and gallstones. Patient informed CC she is getting an INR done tomorrow and holding Warfarin tonight. Reviewed INR results. See below for details: 09/17/212045 Protime 10.2 - 12.9 SEC 83.3??High?? INR 6.8??High Panic?? INR 6.8. office manages INR but patient gets Warfarin refilled by 's office. Patient stated it gets confusing. Informed patient that CC will f/u with 's office and let them know she is getting a INR done tomorrow. Stated she is holding Warfarin tonight. 09/18: Attempted to call 's office at [phone]. Office closed. Will try again tomorrow. 09/19: Contacted 's office and spoke to Ryanne HUNTER. She stated 's office was managing INR's but when patient was seen by on 09/12/21 his note states PCP managing Warfarin. Reviewed PDMP and office is filling Warfarin. ?? 1. Ryanne RN stated she would like clarification if PCP is managing Warfarin and will be checking INR's or 's office can manage. Stating only one Provider needs to order Warfarin and check INR's. ?? 2. Ryanne stated she received a confusing message from PCP office on 08/30/21. Stating the caller from office reports recent labs show hyperthyroidism, patient on Amiodarone and PCP wantsto add a beta lexy, due to hyperthroid. She sent the message to the Cardiology REINSPECTOR and the REINSPECTOR stated the following: Ryanne HUNTER would like some clarification about this message as she is confused as to what was wanting from Cardiology. Separate message sent to 's nursing team today to address. Follow up appointments made: Patient scheduled to see on 09/26/21. He has an opening for 09/19/21 but patient declined this appointment. Future Appointments Date Time Provider Department Center 09/26/2021 10:40 AM Sanjeev Webster DO [facility] 10/03/2021 1:40 PM Panda Moreno MD [facility] 10/08/2021 1:[address] 1 [facility] 10/29/2021 8:00 AM Gracy Shore MD [facility] 02/17/2022 11:00 AM ALEX INFUSION RM 6 [facility] Follow up labs needed: Yes, PT/INR . Separate message sent to nursing team on 09/19/21 asking to contact patient. She would like a PT/INR in office 09/19/21. Medication changes: Current Outpatient Medications Medication Sig Dispense Refill ??? acetaminophen 325 MG tablet Take 650 mg by mouth daily as needed. ??? albuterol sulfate HFA 108 (90 Base) MCG/ACT inhaler Inhale 2 puffs into the lungs every 6 (six)hours as needed for Wheezing. 18 g 1 ??? ALPRAZolam 0.25 MG tablet Take 1 tablet (0.25 mg total) by mouth 2 (two) times daily as needed for Anxiety. 30 tablet 0 ??? amiodarone 200 MG tablet Take 100 mg by mouth daily. ??? amoxicillin-clavulanate (AUGMENTIN) 875-125 MG tablet Take 1 tablet (875 mg total) by mouth 2 (two) times daily for 7 days. 14 tablet 0 ??? azelastine (AZELASTINE) 0.1 % nasal spray 1 spray by Nasal route 2 (two) times daily. Use in each nostril as directed (Patient taking differently: 1 spray by Nasal route 2 (two) times daily. Use in each nostril as directed prn) 30 mL 1 ??? Blood Glucose Monitoring Suppl (ONE TOUCH ULTRA 2) w/Device Kit Use daily as directed 1 kit 0 ??? Cholecalciferol (VITAMIN D3) 25 MCG [...] (two) times daily. 180 capsule 0 ??? Glucose Blood test strip 1 strip by Other route daily as needed. 100 strip 0 ??? HYDROcodone-acetaminophen 10-325 MG tablet Take 1 tablet by mouth every 6 (six) hours as neededfor Pain. Indications: Chronic Pain Do not take with alprazolam. No further refills until seen in office. 30 tablet 0 ??? Lancets Misc Test daily as directed 100 each 1 ??? lidocaine 5 % Apply pain patch to affected area. Change after 12 hours. 6 patch 0 ??? LISINOPRIL 40 MG tablet Take 1 tablet by mouth once daily 90 tablet 1 ??? methIMAzole 5 MG tablet Take 1 tablet (5 mg total) by mouth daily. 30 tablet 11 ??? metoprolol succinate ER 25 MG 24 hr tablet Take 1 tablet (25 mg total) by mouth daily. 30 tablet 1 ??? OMEPRAZOLE 20 MG capsule Take 1 capsule by mouth once daily 90 capsule 0 ??? oxymetazoline 0.05 % nasal spray Not to exceed 3 days. May use for 3 days then refrain for 3 days and repeat as needed. 20 mL 0 ??? rosuvastatin 5 MG tablet Take 1 tablet (5 mg total) by mouth nightly at bedtime. 30 tablet 2 ??? VENLAFAXINE XR 150 MG 24 hr capsule Take 1 capsule by mouth once daily 90 capsule 0 ??? warfarin 1 MG tablet Take 3 tablets (3 mg total) by mouth see administration instructions. [id number] tablet on , fridays and mondays 270 tablet 1 ??? warfarin 6 MG tablet Take 1 tablet (6 mg total) by mouth daily. (Patient taking differently: 9 mg on Mondays and 6 mg the other days) 90 tablet 1 ??? warfarin 6 MG tablet Take 1 tablet (6 mg total) by mouth daily. Take 6 mg every day except Thu and Thursday. Take 9 mg on Thu and Thursday 60 tablet 0 No current facility-administered medications for this visit. Facility-Administered Medications Ordered in Other Visits Medication Dose Route Frequency Provider Last Rate Last Admin ??? denosumab (PROLIA) injection 60 mg 60 mg Subcutaneous Once Panda Moreno MD Explain appropriateness of ER use and alternatives: Yes Educate on use of [facility] Facilities: Yes Chronic Care Management: Patient Status: Educated patient on CHF s/s, why it's important to monitor weight and report a weight gain of 3 lbsover night or the onset of s/s. Educated patient again on the importance of checking BG. Report BG consistently < 80 or > 200. Educated on COPD s/s and the importance of taking medications as directed. Patient verbalizes understanding. Plan of Care: resource coordinator will continue to follow up by phone, provide resources when needed, educate on disease management and assess chronic conditions. Patient Goals: Goals Addressed This Visit's Progress ??? Establish Plan for Symptom Monitoring-CHF Not on track Patient will recognize symptoms of CHF [...] information. ??? Establish Plan for Symptom Monitoring-HTN On [...] good at appointment yesterday. CC reviewedreading in [place] from yesterday. B/P: 132/70 P: 65. 07/29/21: Patient is not taking B/P at this time. Stated her [id number] sets up her pill turnaround planner and she is taking medications as directed. Reports alarm will go off at 8:00 am and 8:00 PM reminding her to take her medications. 08/12/21: Patient taking medication as directed. 09/18/21: Taking medication as directed. B/P on 09/12: 120/56. Upcoming Visit Appointments: Future Appointments Date Time Provider Department Center 09/26/2021 10:40 AM Sanjeev Webster DO [facility] 10/03/2021 1:40 PM Panda Moreno MD [facility] 10/08/2021 1:[address] [facility] 10/29/2021 8:00 AM Gracy Shore MD [facility] 02/17/2022 11:00 AM ALEX INFUSION RM 6 [facility] Quality care gaps: [...] Chronic anticoagulation ??? Coronary artery disease involving iliamna coronary artery of iliamna heart without angina pectoris ??? Diabetes mellitus [...] with current pathological fracture ??? Care Management Medications: Current Outpatient Medications Medication Sig Dispense Refill ??? acetaminophen 325 MG tablet Take 650 mg by mouth daily as needed. ??? albuterol sulfate HFA 108 (90 Base) MCG/ACT inhaler Inhale 2 puffs into the lungs every 6 (six)hours as needed for Wheezing. 18 g 1 ??? ALPRAZolam 0.25 MG tablet Take 1 tablet (0.25 mg total) by mouth 2 (two) times daily as needed for Anxiety. 30 tablet 0 ??? amiodarone 200 MG tablet Take 100 mg by mouth daily. ??? amoxicillin-clavulanate (AUGMENTIN) 875-125 MG tablet Take 1 tablet (875 mg total) by mouth 2 (two) times daily for 7 days. 14 tablet 0 ??? azelastine (AZELASTINE) 0.1 % nasal spray 1 spray by Nasal route 2 (two) times daily. Use in each nostril as directed (Patient taking differently: 1 spray by Nasal route 2 (two) times daily. Use in each nostril as directed prn) 30 mL 1 ??? Blood Glucose Monitoring Suppl (ONE TOUCH ULTRA 2) w/Device Kit Use daily as directed 1 kit 0 ??? Cholecalciferol (VITAMIN D3) 25 MCG [...] (two) times daily. 180 capsule 0 ??? Glucose Blood test strip 1 strip by Other route daily as needed. 100 strip 0 ??? HYDROcodone-acetaminophen 10-325 MG tablet Take 1 tablet by mouth every 6 (six) hours as neededfor Pain. Indications: Chronic Pain Do not take with alprazolam. No further refills until seen in office. 30 tablet 0 ??? Lancets Misc Test daily as directed 100 each 1 ??? lidocaine 5 % Apply pain patch to affected area. Change after 12 hours. 6 patch 0 ??? LISINOPRIL 40 MG tablet Take 1 tablet by mouth once daily 90 tablet 1 ??? methIMAzole 5 MG tablet Take 1 tablet (5 mg total) by mouth daily. 30 tablet 11 ??? metoprolol succinate ER 25 MG 24 hr tablet Take 1 tablet (25 mg total) by mouth daily. 30 tablet 1 ??? OMEPRAZOLE 20 MG capsule Take 1 capsule by mouth once daily 90 capsule 0 ??? oxymetazoline 0.05 % nasal spray Not to exceed 3 days. May use for 3 days then refrain for 3 days and repeat as needed. 20 mL 0 ??? rosuvastatin 5 MG tablet Take 1 tablet (5 mg total) by mouth nightly at bedtime. 30 tablet 2 ??? VENLAFAXINE XR 150 MG 24 hr capsule Take 1 capsule by mouth once daily 90 capsule 0 ??? warfarin 1 MG tablet Take 3 tablets (3 mg total) by mouth see administration instructions. [id number] tablet on , fridays and mondays 270 tablet 1 ??? warfarin 6 MG tablet Take 1 tablet (6 mg total) by mouth daily. (Patient taking differently: 9 mg on Mondays and 6 mg the other days) 90 tablet 1 ??? warfarin 6 MG tablet Take 1 tablet (6 mg total) by mouth daily. Take 6 mg every day except Thu and Thursday. Take 9 mg on Thu and Thursday 60 tablet 0 No current facility-administered medications for this visit. Facility-Administered Medications Ordered in Other Visits Medication Dose Route Frequency Provider Last Rate Last Admin ??? denosumab (PROLIA) injection 60 mg 60 mg Subcutaneous Once Panda Moreno MD Chronic Care Management- Time Spent with Patient Time spent with patient (minutes): 18 (Comment: Spoke to patient, 's nurse several times today and spoke to patient yesterday.) Time spent performing chart review (minutes): 10 Total time (minutes): 28 CASEY JOHNSON RN I reviewed the patient's status and education provided by CASEY JOHNSON RN. I agree with the findings and recommendations made. Cosigned by Sanjeev Webster DO at 09/22/2021 5:14 PM CDT documented in this encounter Plan of Treatment Upcoming Encounters Date Type Department Care Team (Late st Contact Info) Description 04/14/2024 2:00 PM CHURNER Office Visit [facility] Medical Group Multispecialty Care - [address], [address] [place] [address] Julio Pulido MD [address] [place] [address] documented as of this encounter Goals Goal Patient Goal Type Associated Problems Recent Progress Patient-Stated? Author Health - patient able to perform ADLs independently General On track(2023 9:49 AM CDT) Casey Corona RN Note: 12/17/23: Patient stated she is independent with ASL's. Establish Plan for Symptom Monitoring-CHF General On track(2023 11:36 AM CHURNER) Casey Corona, RN Note: Patient will recognize [...] Symptom Monitoring-COPD General On track(2023 11:36 AM CHURNER) Casey Corona, RN Note: Patient will recognize [...] Symptom Monitoring-DM General On track(2023 4:33 PM CHURNER) Casey Corona RN Note: Patient will manage [...] Symptom Monitoring-HTN General On track(2023 4:33 PM CHURNER) Casey Corona, RN Note: Patient will monitor [...] gangrene, without long-term current use of insulin ([facility])- Primary Care Management Chronic obstructive pulmonary disease, unspecified COPD type ([facility]) Diastolic heart failure ([facility]) Unspecified diastolic heart failure documented in this encounter Additional Health Concerns Assessment Noted Time PHQ-9 Depression Total Score: 0 05/25/19 22 9:23 AM CDT documented as of this encounter Care Teams Pocket Flap Creasing Machine Operator Relationship Specialty Start Date End Date Sanjeev Webster DO [address] [place] [address] PCP - General FAMILY PRACTICE 09/25/20 Casey Johnson, RN [address] [place] [address] Ambulatory Nurse (Ambulatory) REGISTERED NURSE 08/14/20 documented as of this encounter
--- OUTSIDE RECORDS SUMMARY | 2024-03-15 01:06 | XMS_ITS | Encounter Summary ---
Author Organization [facility] Address [facility] [facility] [place] [address] [place] [address] Care Team Providers Care Cook Roast Name Role Phone Dianne Johnson RN Unavailable [phone] Sanjeev Webster DO Primary Care Provider + Reason for Visit * Reason Onset Date Comments Results 09/27/2021 Encounter Details Date Type Department Care Team (Late st Contact Info) Description 09/27/2021 Telephone [facility] Medical Group Family & Internal Medicine [place] [address] [place] [address] Sanjeev Webster DO [facility] [place] [address] Results Social History Tobacco Use [...] Progress Notes * Scarlett Guerrero MA - 09/27/2021 8:38 AM CDT Patient notified and v/u * Scarlett Guerrero MA - 09/27/2021 8:37 AM CDT ----- Message from Sanjeev Webster DO sent at 09/27/2021 8:34 AM CDT ----- Still awaiting full labs, but pt's PT/INR is again notably elevated. Have pt skip dose tonight and reduce daily dosage of warfarin by 1 mg. If any symptoms of bleed, need to go to ER. documented in this encounter Plan of Treatment Upcoming Encounters Date Type Department Care Team (Late st Contact Info) Description 04/14/2024 2:00 PM CARPENTER/LABOR Office Visit [facility] Medical Group Multispecialty Care - [facility] [address] [facility], [address] [place] [id number] Julio Pulido MD [address] [place] [address] documented as of this encounter Goals Goal Patient Goal Type Associated Problems Recent Progress Patient-Stated? Author Health - patient able to perform ADLs independently General On track(2023 9:49 AM CDT) Dianne Corona, RN Note: 12/17/23: Patient stated she is independent with ASL's. Establish Plan for Symptom Monitoring-CHF General On track(2023 11:36 AM CARPENTER/LABOR) Dianne Corona, RN Note: Patient will recognize [...] Symptom Monitoring-COPD General On track(2023 11:36 AM CARPENTER/LABOR) Dianne Corona RN Note: Patient will recognize [...] Symptom Monitoring-DM General On track(2023 4:33 PM CARPENTER/LABOR) Dianne Corona RN Note: Patient will manage [...] Symptom Monitoring-HTN General On track(2023 4:33 PM CARPENTER/LABOR) Dianne Corona RN Note: Patient will monitor [...] as of this encounter Care Teams Cook Roast Relationship Specialty Start Date End Date Sanjeev Webster DO [address] [place] [id number] PCP - General FAMILY PRACTICE 09/25/20 Dianne Johnson, RN [address] [place] [address] Friction Saw Operator (Ambulatory) REGISTERED NURSE 08/14/20 documented as of this encounter
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
--- OUTSIDE RECORDS SUMMARY | 2024-03-15 01:06 | XMS_ITS | Encounter Summary ---
Author Organization [facility] Address [facility] [facility] [place] [address] [place] [address] Care Team Providers Care Winch Runner Name Role Phone Dianne Johnson RN Unavailable [phone] Sanjeev Webster DO Primary Care Provider + Reason for Visit * Reason Onset Date Comments Follow Up Call 09/19/2021 Encounter Details Date Type Department Care Team (Late st Contact Info) Description 09/19/2021 Telephone [facility] Family & Internal Medicine [address] [address] Sanjeev Webster DO [address] [place] [address] Follow Up Call Social History Tobacco [...] Notes * Scarlett Guerrero MA - 09/20/2021 3:23 PM CDT Spoke with Izzy and patient will start warfarin 9mg on mondays and 6mg the rest of the week. She will recheck inr in one week per PCP instructions. * Dianne Johnson RN - 09/19/2021 5:34 PM CDT Images from the original note were not included. Patient called wanting to know how many mg of Warfarin she should take tonight. Reviewed lab results from today. Informed patient of the information below: Patient stated Izzy ([id number]) manages medications and to call her to clarify. 09/19: Contacted Izzy at [phone]. Stated patient was taking 9 mg of Warfarin on and 6 mg the rest of the days. Informed Izzy that CC will have nurse call her tomorrow and leave a message on her voicemail regarding adjustments he wants to make and when the next Protime is due. 09/19: Contacted patient and informed to take 6 mg of Warfarin tonight. office will contact patient and daughter in law tomorrow with further instructions. Patient verbalizes understanding. documented in this encounter Plan of Treatment Upcoming Encounters Date Type Department Care Team (Late st Contact Info) Description 04/14/2024 2:00 PM PIZZA CHEF Office Visit [facility] Multispecialty Care - [facility] 3 [facility], [address] [place] [address] Julio Pulido MD 3 [place] [address] documented as of this encounter Goals Goal Patient Goal Type Associated Problems Recent Progress Patient-Stated? Author Health - patient able to perform ADLs independently General On track(2023 9:49 AM CDT) Dianne Corona RN Note: 12/17/23: Patient stated she is independent with ASL's. Establish Plan for Symptom Monitoring-CHF General On track(2023 11:36 AM PIZZA CHEF) Dianne Corona, RN Note: Patient will recognize [...] Symptom Monitoring-COPD General On track(2023 11:36 AM PIZZA CHEF) Dianne Corona, RN Note: Patient will recognize [...] Symptom Monitoring-DM General On track(2023 4:33 PM PIZZA CHEF) Dianne Corona RN Note: Patient will [...] Symptom Monitoring-HTN General On track(2023 4:33 PM PIZZA CHEF) No Dianne Johnson, RN Note: Patient will [...] documented as of this encounter Care Teams Winch Runner Relationship Specialty Start Date End Date Sanjeev Webster DO [address] [place] [address] PCP - General FAMILY PRACTICE 09/25/20 Dianne Johnson, RN [address] [place] [address] Pin Drafter (Ambulatory) REGISTERED NURSE 08/14/20 documented as of this encounter
--- OUTSIDE RECORDS SUMMARY | 2024-03-15 01:06 | XMS_ITS | Encounter Summary ---
Author Organization [facility] Address [facility]. [place], [place] [address] [place] [address] Care Team Providers Care Sourcing Consultant Name Role Phone Dianne Johnson RN Unavailable [phone] Sanjeev Alcantar DO Primary Care Provider + Reason for Referral * Consultation/Treatment (Urgent) - Closed Specialty Diagnoses / Procedures Referred By Ian t Referred To Contact SURGERY Diagnoses RUQ pain Calculus of gallbladder without cholecystitis without obstruction Sanjeev Alcantar DO [address] [place] [address] Phone: tel: fax: Dov Gonzales DO [address] [address] Phone: tel: fax: Referral ID Status Reason Start Date Expiration Date Visits Re quested Visits Authorized [id number] Closed 10/02/2021 10/02/2022 6 6 Scheduling Instructions [facility] Reason for Visit * Reason Onset Date Comments Results 09/17/2021 Encounter Details Date Type Department Care Team (Late st Contact Info) Description 09/17/2021 Telephone [facility] Family & Internal Medicine [facility] [address] [place] [address] Sanjeev Alcnatar DO [address] [place] [address] Results Social History Tobacco Use Types Packs/Day [...] as of this encounter Progress Notes * Sanjeev Alcantar DO - 09/17/2021 2:34 PM CDT Pain is not worsened at this time; informed to go to ER if they worsen. Will refer to GS urgently. * RT AriadnaR - 09/17/2021 2:30 PM CDT Patient called back and was given her results and also talked with dr. alcantar as well. Was instructed by Dr. alcantar to send encounter back to him * Scarlett Guerrero MA - 09/17/2021 2:22 PM CDT lmtc 09/17/21 * Sanjeev Alcantar DO - 09/17/2021 1:28 PM CDT Please let pt know we have the results of her RUQ ultrasound from 09/10/21. It showed a gallstone with equivocal signs of acute cholecystitis. There were also some findings consistent with cirrhosis of the liver incidentally. We will need to look into the liver issue in the future, but please inquire pt's current RUQ symptoms. Are they worsening? Is she having any fevers, new onset dizziness, or other new symptoms? Pt's labs didn't suggest acute infection at time of presentation. However, if ptis acutely worsening, she needs to go to ER for evaluation. documented in this encounter Plan of Treatment Upcoming Encounters Date Type Department Care Team (Late st Contact Info) Description 04/14/2024 2:00 PM ELECTROENCEPHALOGRAPH TECHNICIAN Office Visit [facility] Multispecialty Care - [facility] 3 [facility], [address] [place] [address] Julio Pulido MD 3 [place] [address] Scheduled Referrals Name Type Priority Associated Diagnoses Orde r Schedule Ambulatory referral to General Surgery (OTHER) Referral Routine RUQ pain Calculus of gallbladder without cholecystitis without obstruction Ordered: 09/17/2021 documented as of this encounter Goals Goal Patient Goal Type Associated Problems Recent Progress Patient-Stated? Author Health - patient able to perform ADLs independently General On track(2023 9:49 AM CDT) No Dianne Johnson, RN Note: 12/17/23: Patient stated she is independent with ASL's. Establish Plan for Symptom Monitoring-CHF General On track(2023 11:36 AM ELECTROENCEPHALOGRAPH TECHNICIAN) Dianne Corona, RN Note: Patient will [...] Symptom Monitoring-COPD General On track(2023 11:36 AM ELECTROENCEPHALOGRAPH TECHNICIAN) Dianne Corona RN Note: Patient will [...] Symptom Monitoring-DM General On track(2023 4:33 PM ELECTROENCEPHALOGRAPH TECHNICIAN) Dianne Corona, RN Note: Patient will manage [...] Symptom Monitoring-HTN General On track(2023 4:33 PM ELECTROENCEPHALOGRAPH TECHNICIAN) Dianne Corona RN Note: Patient will monitor B/P several times per week , record readings and report to physician or CC if B/P consistently >130/80 Take your medications as prescribed. Follow up with your provider as scheduled. Take your blood pressure at least several times a week if able. documented as of this encounter Visit Diagnoses Diagnosis RUQ pain- Primary Abdominal pain, right upper quadrant Calculus of gallbladder without cholecystitis without obstruction Calculus of gallbladder without mention of cholecystitis or obstruction documented in this encounter Additional Health Concerns Assessment Noted Time PHQ-9 Depression Total Score: 0 05/25/19 22 9:23 AM CDT documented as of this encounter Care Teams Sourcing Consultant Relationship Specialty Start Date End Date Sanjeev Alcantar DO [address] [place] [address] PCP - General FAMILY PRACTICE 09/25/20 Dianne Johnson, RN [address] [place] [address] Milanese Knitting Machine Operator (Ambulatory) REGISTERED NURSE 08/14/20 documented as of this encounter
--- OUTSIDE RECORDS SUMMARY | 2024-03-15 01:06 | XMS_ITS | Encounter Summary ---
Author Organization [facility] Address [facility] [facility] [place] [address] [place] [address] Care Team Providers Care Welding Machine Operator Thermit Name Role Phone Dianne Johnson RN Unavailable [phone] Sanjeev Webster DO Primary Care Provider + Encounter Details Date Type Department Care Team (Latest Contact Info) Description 09/12/2021 Scan HEALTH INFO SRVCS Scanned, Documents Social [...] st Contact Info) Description 04/14/2024 2:00 PM AEROSPACE ASSEMBLER Office Visit [facility] Multispecialty Care - [address], [address] [place] [address] Julio Pulido MD [address] [place] [address] documented as of this encounter Goals Goal Patient Goal Type Associated Problems Recent Progress Patient-Stated? Author Health - patient able to perform ADLs independently General On track(2023 9:49 AM CDT) Dianne Corona RN Note: 12/17/23: Patient stated she is independent with ASL's. Establish Plan for Symptom Monitoring-CHF General On track(2023 11:36 AM AEROSPACE ASSEMBLER) Dianne Corona RN Note: Patient will [...] Symptom Monitoring-COPD General On track(2023 11:36 AM AEROSPACE ASSEMBLER) Dianne Corona RN Note: Patient will [...] Symptom Monitoring-DM General On track(2023 4:33 PM AEROSPACE ASSEMBLER) Dianne Corona RN Note: Patient will [...] Symptom Monitoring-HTN General On track(2023 4:33 PM AEROSPACE ASSEMBLER) Dianne Corona RN Note: Patient will [...] documented as of this encounter Care Teams Welding Machine Operator Thermit Relationship Specialty Start Date End Date Sanjeev Webster DO [address] [place] [address] PCP - General FAMILY PRACTICE 09/25/20 Dianne Johnson, RN [address] [place] [address] Infectious Waste Technician (Ambulatory) REGISTERED NURSE 08/14/20 documented as of this encounter
--- OUTSIDE RECORDS SUMMARY | 2024-03-15 01:06 | XMS_ITS | Encounter Summary ---
Author Organization [facility] Address [facility] [place] [address] [place] [address] Care Team Providers Care Clam Picker Name Role Phone Dianne Johnson RN Unavailable [phone] Sanjeev Webster DO Primary Care Provider + Reason for Referral * Consultation/Treatment (Routine) - Closed Specialty Diagnoses / Procedures Referred By Ian t Referred To Contact OPHTHALMOLOGY Diagnoses Type 2 diabetes mellitus with diabetic peripheral angiopathy without gangrene, without long-term current use of insulin ([facility]) Sanjeev Webster DO [address] [place] [address] Phone: tel: fax: [address] [address] Phone: tel: fax: Referral ID Status Reason Start Date Expiration Date V isits Requested Visits Authorized [id number] Closed Specialty Services 10/02/2021 04/08/2022 6 6 Reason for Visit * Reason Comments Follow Up Encounter Details Date Type Department Care Team (Late st Contact Info) Description 09/26/2021 10:40 AM CDT Office Visit [facility] Medical Group Family & Internal Medicine - [address] [phone] Sanjeev Webster DO [address] [place], [place] [phone] Follow Up Social History Tobacco Use Types Packs/Day Years [...] Sign Reading Time Taken Comments Blood Pressure 124/62 09/26/2021 10:58 AM CDT Pulse 66 09/26/2021 10:58 AM CDT Temperature 36.9 ??C (98.4 ??F) 09/26/2021 1 0:58 AM CDT Respiratory Rate 16 09/26/2021 10:5 8 AM CDT Oxygen Saturation 95% 09/26/2021 10: 58 AM CDT Inhaled Oxygen Concentration - - Weight 86.6 kg (190 lb 14.4 oz) 022 10:58 AM CDT Height 162.6 cm (5' 4 ) 09/26/2021 10:5 8 AM CDT Body Mass Index 32.77 09/26/2021 10:58 AM CDT documented in this encounter Patient Instructions * Patient Instructions* Sanjeev Webster DO - 09/26/2021 10:40 AM CDT Try melatonin 3 mg nightly as needed for sleep. documented in this encounter Progress Notes * Sanjeev Webster DO - 09/26/2021 10:40 AM CDT Images from the original note were not included. GENERAL OFFICE VISIT Encounter Date: 09/26/21 Chief Complaint: 76-year-old female presents for Follow Up HPI: Pt presents for short term follow-up. Pt has RUQ pain. At last OV, we ordered a RUQ ultrasound. Pt had gallstones found. Pt did go to ER on the 09/17/21 and was not found to have cholecystitis. Pt has not yet seen general surgeon. Pt is scheduled with general surgery for 10/08/21. The pain is still present. Pt did have question of cirrhosis on the ultrasound, but the CT showed no evidence. Pt was on Augmentin recently for any concernfor diverticulitis as well as sinus infections. Pt needs hydrocodone refilled. Pt needs referral to eye doctor for diabetic exam. Pt needs PT/INR checked today. Pt has new onset hyperthyroidism. Pt will see Dr. Moreno on 10/03/21. Pt is on methimazole and metoprolol. Her HR is stable today (has had issues in the past). Pt saw Dr. Paredes who stopped pt's amiodarone due to concern for toxicity. Pt needs repeat labs for this done today. Pt needs an anemia work-up today. Pt was mildly hyperkalemic on previous check, but this improved on recheck. Pt is asking about sleep issues. She is having trouble initiating sleep. Review of Systems Constitutional: Negative for fever. Respiratory: Negative for shortness of breath. Cardiovascular: Negative for chest pain. Gastrointestinal: See HPI Endocrine: See HPI Neurological: See HPI Patient Active Problem List Diagnosis ??? Abnormal stress test ??? Bradycardia ??? Chronic anticoagulation ??? Coronary artery disease involving salamatof coronary artery of salamatof heart without angina pectoris ??? Diabetes mellitus [...] >Age 65 (Prefilled Syringe) 12/03/2017, 12/13/2018, 02/27/2020, 12/13/2020 ??? Influenza 02/26/2012, 12/02/2012, 11/30/2013, 12/23/2013, 12/27/2014 [...] 09/05/2020 ??? Tetanus/Diptheria 07/22/2014 ??? Zoster (Zostavax) 49539 Unt/0.65Ml 12/25/2015 Current Outpatient Medications Medication Sig [...] Take 100 mg by mouth daily. ??? azelastine (AZELASTINE) 0.1 % nasal spray [...] mg total) by mouth see administration instructions. [id number] tablet on , fridays and mondays 270 [...] Prior to Visit Medication Sig ??? acetaminophen 325 MG tablet Take 650 mg by mouth daily as needed. ??? albuterol sulfate HFA 108 (90 Base) MCG/ACT inhaler Inhale 2 puffs into the lungs every 6 (six)hours as needed for Wheezing. ??? ALPRAZolam 0.25 MG tablet Take 1 tablet (0.25 mg total) by mouth 2 (two) times daily as needed for Anxiety. ??? amiodarone 200 MG tablet Take 100 mg by mouth daily. ??? azelastine (AZELASTINE) 0.1 % nasal spray 1 spray by Nasal route 2 (two) times daily. Use in each nostril as directed (Patient taking differently: 1 spray by Nasal route 2 (two) times daily. Use in each nostril as directed prn) ??? Blood Glucose Monitoring Suppl (ONE TOUCH [...] Other route daily as needed. ??? HYDROcodone-acetaminophen 10-325 MG tablet Take 1 [...] (25 mg total) by mouth daily. ??? OMEPRAZOLE 20 MG capsule Take 1 [...] mg total) by mouth see administration instructions. [id number] tablet on , fridays and mondays ??? warfarin 6 MG tablet Take 1 tablet (6 mg total) by mouth daily. Take 6 mg every day except Thu and Thursday. Take 9 mg on Thu and Thursday Current Facility-Administered Medications on File Prior to [...] B Other (see comment) Objective: Filed Vitals: 09/26/21 1058 BP: 124/62 Pulse: 66 Resp: 16 Temp: 98.4 ??F (36.9 ??C) TempSrc: Skin SpO2: 95% Weight: 86.6 kg (190 lb 14.4 oz) Height: 5' 4 (1.626 m) Physical Exam Vitals and nursing note reviewed. HENT: Head: Normocephalic and atraumatic. Right Ear: Tympanic membrane, ear canal and external ear normal. Left Ear: Tympanic membrane, ear canal and external ear normal. Nose: Nose normal. Eyes: General: No scleral icterus. Conjunctiva/sclera: Conjunctivae normal. Cardiovascular: Rate and Rhythm: Normal rate and regular rhythm. Heart sounds: Normal heart sounds. No murmur heard. No friction rub. No gallop. Pulmonary: Effort: Pulmonary effort is normal. No respiratory distress. Breath sounds: Normal breath sounds. No wheezing or rales. Abdominal: Palpations: Abdomen is soft. There is no mass. Tenderness: There is no abdominal tenderness. There is no guarding or rebound. Musculoskeletal: Cervical back: Neck supple. Lymphadenopathy: Cervical: No cervical adenopathy. Skin: General: Skin is warm and dry. Findings: No rash. Neurological: General: No focal deficit present. Mental Status: She is alert. Mental status is at baseline. Motor: No weakness. Coordination: Coordination normal. Gait: Gait normal. Psychiatric: Mood and Affect: Mood and affect normal. Assessment & Plan: Radha was seen today for follow up. Diagnoses and all orders for this visit: Calculus of gallbladder without cholecystitis without obstruction - HYDROcodone-acetaminophen (NORCO) 10-325 MG tablet; Take 1 tablet by mouth every 6 (six) hours asneeded for Pain. Indications: Chronic Pain Do not take with alprazolam. No further refills until seen in office. Paroxysmal atrial flutter (CMS/HCC) - PROTIME/INR, VENOUS; Future - VENIPUNC ARM DRAW - PROTIME/INR, VENOUS Hyperthyroidism - THYROID STIM HORMONE, TSH; Future - THYROXINE, FREE (FT4); Future - FREE T3; Future - Cancel: THYROTROPIN BIND INHIB IMMUNO; Future - Cancel: THYROTROPIN BIND INHIB IMMUNO - FREE T3 - THYROXINE, FREE (FT4) - THYROID STIM HORMONE, TSH - THYROTROPIN BIND INHIB IMMUNO; Future - THYROTROPIN BIND INHIB IMMUNO Anemia, unspecified type - CBC W/DIFF AUTOMATED; Future - VITAMIN B-12; Future - FOLIC ACID SERUM; Future - Cancel: RETICULOCYTE CT, AUTO; Future - HAPTOGLOBIN, QUANT; Future - LDH, LACTATE DEHYDROGENASE; Future - FERRITIN; Future - IRON SAT PANEL (IRON,IBC,%SAT); Future - RETICULOCYTE CT, AUTO; Future - RETICULOCYTE CT, AUTO - IRON SAT PANEL (IRON,IBC,%SAT) - FERRITIN - LDH, LACTATE DEHYDROGENASE - HAPTOGLOBIN, QUANT - FOLIC ACID SERUM - VITAMIN B-12 - CBC W/DIFF AUTOMATED Type 2 diabetes mellitus with diabetic peripheral angiopathy without gangrene, without long-term current use of insulin ([facility]) - Ambulatory Referral to Ophthalmology Discussion/Summary: Pt has gallstones and will need to f/u with general surgeon. Continue methimazole and metoprolol. Will order labs as per above. Will refer to ophthalmology. Will defer sleeping issues for now; can try melatonin. Will refill meds today. F/u with all specialists and obtain testing as recommended. Will have pt f/u in 1 month or sooner if needed. Pt v/u. I spent 45 minutes today reviewing the patient's medical record, obtaining history, performing an exam, ordering medications, tests, and/or procedures, documenting in the medical record, counseling and educating the patient/family/caregiver, reviewing and communicating test results and coordinationof care. Sanjeev Webster DO documented in this encounter Plan of Treatment Upcoming Encounters Date Type Department Care Team (Late st Contact Info) Description 04/14/2024 2:00 PM VENDOR QUALITY SUPERVISOR Office Visit [facility] Medical Group Multispecialty Care - [facility] [address] [facility], [address] [place] [phone] Julio Pulido MD [address] [place] [address] Scheduled Referrals Name Type Priority Associated Diagnoses Orde r Schedule Ambulatory Referral to Ophthalmology Referral Routine Type 2 diabetes mellitus with diabetic peripheral angiopathy without gangrene, without long-term current use of insulin ([facility]) Ordered: 09/26/2021 documented as of this encounter Goals Goal Patient Goal Type Associated Problems Recent Progress Patient-Stated? Author Health - patient able to perform ADLs independently General On track(2023 9:49 AM CDT) Dianne Corona, RN Note: 12/17/23: Patient stated she is independent with ASL's. Establish Plan for Symptom Monitoring-CHF General On track(2023 11:36 AM VENDOR QUALITY SUPERVISOR) Dianne Corona RN Note: Patient will [...] Symptom Monitoring-COPD General On track(2023 11:36 AM VENDOR QUALITY SUPERVISOR) Dianne Corona RN Note: Patient will [...] Symptom Monitoring-DM General On track(2023 4:33 PM VENDOR QUALITY SUPERVISOR) Dianne Corona RN Note: Patient will [...] Symptom Monitoring-HTN General On track(2023 4:33 PM VENDOR QUALITY SUPERVISOR) Dianne Corona RN Note: Patient will monitor B/P several times per week , record readings and report to physician or CC if B/P consistently >130/80 Take your medications as prescribed. Follow up with your provider as scheduled. Take your blood pressure at least several times a week if able. documented as of this encounter Procedures Procedure Name Priority Date/Time Associated Diagnosis Comments THYROTROPIN BIND INHIB IMMUNO Routine 09/26/2021 7:45 PM CDT Hyperthyroidism IRON SAT PANEL (IRON,IBC,%SAT) Routine 09/26/2021 3:51 PM CDT Anemia, unspecified type VITAMIN B-12 Routine 09/26/2021 3:51 PM CDT Anemia, unspecified type FREE T3 Routine 09/26/2021 3:51 PM CDT Hyperthyroidism HAPTOGLOBIN, QUANT Routine 09/26/2021 3: 51 PM CDT Anemia, unspecified type PROTHROMBIN TIME, VENOUS Routine 09/26/2021 3:51 PM CDT Paroxysmal atrial flutter ([facility]/HCC [facility]/HCC) LDH, LACTATE DEHYDROGENASE Routine 09/26/2021 3:51 PM CDT Anemia, unspecified type FOLIC ACID SERUM Routine 09/26/2021 3:51 PM CDT Anemia, unspecified type CBC W/DIFF AUTOMATED Routine 09/26/2021 3:51 PM CDT Anemia, unspecified type THYROXINE, FREE (FT4) Routine 09/26/2021 3:51 PM CDT Hyperthyroidism THYROID STIM HORMONE TSH Routine 09/26/2021 3:51 PM CDT Hyperthyroidism FERRITIN Routine 09/26/2021 3:51 PM CDT Anemia, unspecified type RETICULOCYTE CT, AUTO Routine 09/26/2021 1:13 PM CDT Anemia, unspecified type COLLECTION VENOUS BLOOD VENIPUNCTURE Routine 09/26/2021 11:36 AM CDT Paroxysmal atrial flutter (CMS/HCC HHS/HCC) documented in this encounter Results * THYROTROPIN BIND INHIB IMMUNO (09/26/2021 7:45 PM CDT) Pathologist [facility] THYROTROPIN-BINDING INHIBITORY IMMUNOGLOBULIN (TBII) <1.00 < OR = 2.00 IU/L [facility], Comment: This test was performed using the TRAb Antibody HAN method which is standardized against the 1st International Standard 90/672 and is reported in International Units (IU/L). The reference range reported was established specifically for this test method. 09/26/2021 7:45 PM CDT 09/28/2021 12:19 AM CDT Sanjeev Webster DO LABORATORY Final Re sult [facility], [address] [place] [address] * (ABNORMAL) IRON SAT PANEL (IRON,IBC,%SAT) (09/26/2021 3:51 PM CDT) Pathologist [facility] IRON 35(L) 50 - 170 MCG/DL 09/26/2021 10:07 PM CDT [facility] IRON BINDING CAPACITY 229(L) 250 - 450 MCG/DL 09/26/2021 10:07 PM CDT [facility] IRON SATURATION 15 % 10:07 PM CDT [facility] Comment:REFERENCE RANGE NOT ESTABLISHED 09/26/2021 3:51 PM CDT Sanjeev Webster DO LABORATORY Final Re sult Performing Organization Address [facility]/ZIP Co de Phone Number [facility] [address] [place] [address], * FERRITIN (09/26/2021 3:51 PM CDT) FERRITIN 89.0 8 - 252 NG/ML 09/26/2021 10:07 PM CDT [facility] 09/26/2021 3:51 PM CDT Sanjeev Webster DO LABORATORY Final Re sult Performing Organization Address [facility] de Phone Number [place] [address] [place] [address], * LDH, LACTATE DEHYDROGENASE (09/26/2021 3:51 PM CDT) LDH 236 84 - 246 UNITS/L 09/26/2021 8:53 PM CDT [facility] 09/26/2021 3:51 PM CDT Sanjeev Webster DO LABORATORY Final Re sult Performing Organization Address City/[facility] Co de Phone Number [facility] [address] [place] [address], [phone] * (ABNORMAL) HAPTOGLOBIN, QUANT (09/26/2021 3:51 PM CDT) HAPTOGLOBIN <7.8(L) 30.0 - 200.0 MG/DL 09/26/2021 9:04 PM CDT [facility] 09/26/2021 3:51 PM CDT Sanjeev Webster DO LABORATORY Final Re sult Performing Organization Address City/[facility]/ZIP Co de Phone Number [facility] [address] [place] [address], [place] [phone] * FOLIC ACID SERUM (09/26/2021 3:51 PM CDT) FOLATE >20.0 8.6 - 58.9 NG/ML 09/26/2021 10:25 PM CDT [facility] 09/26/2021 3:51 PM CDT Sanjeev Webster DO LABORATORY Final Re sult Performing Organization Address [facility] Co de Phone Number [address] [address], [place] [phone] * VITAMIN B-12 (09/26/2021 3:51 PM CDT) Pathologist [facility] VITAMIN B12 S/P/B 461 193 - 986 PG/ML 09/26/2021 10:07 PM CDT [facility] 09/26/2021 3:51 PM CDT Sanjeev Webster DO LABORATORY Final Re sult Performing Organization Address [facility]/ZIP Co de Phone Number [place] [address] [place] [address], [place] [phone] * (ABNORMAL) CBC W/DIFF AUTOMATED (09/26/2021 3:51 PM CDT) WBC 6.0 4.0 - 10.8 x10'3/uL 09/26/2021 8:03 PM CDT [facility] RBC 3.36(L) 4.10 - 5.40 x10'6/uL 09/26/2021 8:03 PM CDT [facility] HGB 10.8(L) 12.0 - 16.0 G/DL 09/26/2021 8:03 PM CDT [facility] HCT 34.8(L) 36.0 - 47.0 % 09/26/2021 8:03 PM CDT [facility] MCV 103.6(H) 78.0 - 100.0 FL 09/26/2021 8:03 PM CDT [facility] MCH 32.1(H) 27.0 - 31.0 PG 09/26/2021 8:03 PM CDT [facility] MCHC 31.0(L) 33.0 - 36.0 G/DL 09/26/2021 8:03 PM CDT [facility] RDW 12.2 11.5 - 14.5 % 09/26/2021 8:03 PM CDT [facility] PLT 193 150 - 350 x10'3/uL 09/26/2021 8:03 PM CDT [facility] MPV 13.6(H) 7.4 - 10.4 FL 09/26/2021 8:03 PM CDT [facility] RBC MORPHOLOGY NORMAL 09/26/2021 8:02 PM CDT [facility] PLT MORPH. NORMAL 09/26/2021 8:02 PM CDT [facility] PLT EST. NORMAL x10'3/uL 09/26/2021 8:02 PM CDT [facility] DIFFERENTIAL TYPE AUTO-DIFF VERIFIED BY BLOOD SMEAR SCAN. 09/26/2021 8:02 PM CDT [facility] 09/26/2021 3:51 PM CDT us Sanjeev Webster DO LABORATORY Final Re sult [facility] [address] [place] [address], * (ABNORMAL) FREE T3 (09/26/2021 3:51 PM CDT) FREE T3 8.7(H) 2.2 - 3.9 PG/ML 09/26/2021 9:04 PM CDT [facility] 09/26/2021 3:51 PM CDT Sanjeev Webster DO LABORATORY Final Re sult Performing Organization Address City/[facility]/ZIP Co de Phone Number [facility] [address] [place] [address], [place] [phone] * (ABNORMAL) THYROXINE, FREE (FT4) (09/26/2021 3:51 PM CDT) FREE T4 3.45(H) 0.76 - 1.46 NG/DL 09/26/2021 10:07 PM CDT [facility] 09/26/2021 3:51 PM CDT Sanjeev Webster LABORATORY Final Re sult Performing Organization Address [facility]/ZIP Co de Phone Number [address] [phone], * (ABNORMAL) THYROID STIM HORMONE, TSH (09/26/2021 3:51 PM CDT) TSH <0.007(L) 0.358 - 3.740 uIU/ML 09/26/2021 10:24 PM CDT [facility] 09/26/2021 3:51 PM CDT Sanjeev Webster DO LABORATORY Final Re sult Performing Organization Address City/[facility] de Phone Number [facility] [address] [place] [address], * (ABNORMAL) PROTIME/INR, VENOUS (09/26/2021 3:51 PM CDT) PROTIME 52.9(H) 9.3 - 11.6 SEC 09/26/2021 8:13 PM CDT [facility] INR 5.4(HH) 0.9 - 1.1 09/26/2021 8:13 PM CDT [facility] Comment: TREATMENT OR PROPHYLAXIS AGAINST: ?? THERAPEUTIC RANGE (INR): ?VENOUS THROMBOSIS ? 2.0-3.0 ?PULMONARY EMBOLUS ? 2.0-3.0 ?? MECHANICAL PROSTHETIC VALVES ? 2.5-3.5 CRITICAL READ BACK BY ANNIE BISHOP 2010 MR 09/26/2021 3:51 PM CDT Sanjeev Webster DO LABORATORY Final Evy yeny Performing Organization Address [facility] Co de Phone Number [facility] [address] [place] [address], * RETICULOCYTE CT, AUTO (09/26/2021 1:13 PM CDT) RETICULOCYTE COUNT 1.3 % [facility] RETICULOCYTE COUNT 44,200 20,000 - 80,000 cells/uL [facility] 09/26/2021 1:13 PM CDT 09/27/2021 3:25 AM CDT Sanjeev Webster DO LABORATORY Final Re sult [facility] [address] [phone] documented in this encounter Visit Diagnoses Diagnosis Calculus of gallbladder without cholecystitis without obstruction- Primary Calculus of gallbladder without mention of cholecystitis or obstruction Paroxysmal atrial flutter (CMS/HCC HHS/HCC) Atrial flutter Hyperthyroidism Thyrotoxicosis without mention of goiter or other cause, without mention of thyrotoxic crisis or storm Anemia, unspecified type Type 2 diabetes mellitus with diabetic peripheral angiopathy without gangrene, without long-term current use of insulin ([facility] HHS/HCC) documented in this encounter Additional Health Concerns Assessment Noted Time PHQ-9 Depression Total Score: 0 05/25/19 22 9:23 AM CDT documented as of this encounter Care Teams Clam Picker Relationship Specialty Start Date End Date Sanjeev Webster DO [address] [place] [address] PCP - General FAMILY PRACTICE 09/25/20 Dianne Johnson, RN [address] [place], [place] [phone] Performance Architect (Ambulatory) REGISTERED NURSE 08/14/20 documented as of this encounter
--- OUTSIDE RECORDS SUMMARY | 2024-03-15 01:06 | XMS_ITS | Encounter Summary ---
Author Organization [facility] Address [facility] [facility] [place], [place] [address] [place] [address] Care Team Providers Care Inseamer Name Role Phone Dianne Johnson RN Unavailable [phone] Sanjeev Webster DO Primary Care Provider + Reason for Visit * Reason Onset Date Comments Follow Up Call 10/10/2021 Encounter Details Date Type Department Care Team (Late st Contact Info) Description 10/10/2021 Telephone [facility] Medical Group Family & Internal Medicine [address] [phone] Sanjeev Webster DO [address] [place] [id number] Follow Up Call Social History Tobacco [...] of this encounter Progress Notes * Sanjeev Webster DO - 10/10/2021 9:11 PM CDT Continue with 5 mg at this time and will reassess at next PT/INR. * Dianne Johnson RN - 10/10/2021 8:45 AM CDT Izzy ([id number]) takes care of medications. Stated patient is taking Warfarin 5 mg daily until today. According to [facility] D/C medication list it states to continue taking Warfarin 6 mg daily except on Fridays. Izzy wants to know if patient should continue taking 5 mg daily? She is getting an INR on 10/15/21 when she is seen by . Please advise and CC will reach out to Izzy. Thank you. Of note, Izzy is working and gave CC permission last night to leave a detailed message on her voicemail. Update: Spoke to patient and stated she received a phone call yesterday from office to continue taking Warfarin 5 mg daily and she will recheck INR on Thursday. Reviewed [facility] and Trixie SHANKAR contacted patient yesterday about it. Izzy ([id number]) takes care of medication and she wanted to know so she can add Warfarin to pill account planner tonight since patient told her she was only totake 5 mg of Warfarin until today. Contacted Izzy and left a detailed message on her voice mail perTina's request. Patient stated she will talk to Izzy about it as well. documented in this encounter Plan of Treatment Upcoming Encounters Date Type Department Care Team (Late st Contact Info) Description 04/14/2024 2:00 PM REAL ESTATE OFFICE SUPERVISOR Office Visit [facility] Medical Group Multispecialty Care - [address] [place] [phone] Julio Pulido MD [address] [place] [address] documented as of this encounter Goals Goal Patient Goal Type Associated Problems Recent Progress Patient-Stated? Author Health - patient able to perform ADLs independently General On track(2023 9:49 AM CDT) Dianne Corona RN Note: 12/17/23: Patient stated she is independent with ASL's. Establish Plan for Symptom Monitoring-CHF General On track(2023 11:36 AM REAL ESTATE OFFICE SUPERVISOR) Dianne Corona RN Note: Patient will [...] General On track(2023 11:36 AM REAL ESTATE OFFICE SUPERVISOR) Dianne Corona RN Note: Patient will [...] General On track(2023 4:33 PM REAL ESTATE OFFICE SUPERVISOR) Dianne Corona RN Note: Patient will [...] General On track(2023 4:33 PM REAL ESTATE OFFICE SUPERVISOR) No Dianne Johnson RN Note: Patient [...] documented as of this encounter Care Teams Inseamer Relationship Specialty Start Date End Date Sanjeev Webster DO [address] [place] [address] PCP - General FAMILY PRACTICE 09/25/20 Dianne Johnson RN [address] [place] [address] Instructional Coordinator (Ambulatory) REGISTERED NURSE 08/14/20 documented as of this encounter
--- OUTSIDE RECORDS SUMMARY | 2024-03-15 01:06 | XMS_ITS | Encounter Summary ---
Author Organization [facility] Address [address] [place] [address]. [place] [address] [place] [address] Care Team Providers Care Electrical Manufacturing Engineer Name Role Phone Dianne Johnson RN Unavailable [phone] Sanjeev Webster DO Primary Care Provider + Reason for Visit * Reason Comments Lab (SCAN) Encounter Details Date Type Department Care Team (Latest Contact Info) Description 10/02/2021 Scan HEALTH INFO SRVCS Scanned, Documents Lab (SCAN) Social History Tobacco Use Types [...] Upcoming Encounters Date Type Department Care Team ( Contact Info) Description 04/14/2024 2:00 PM PELLETISING EXTRUDER OPERATOR Office Visit [facility] Medical Group Multispecialty Care - [address], [address] [place] [address] Julio Pulido MD [address] [place] [address] documented as of this encounter Goals Goal Patient Goal Type Associated Problems Recent Progress Patient-Stated? Author Health - patient able to perform ADLs independently General On track(2023 9:49 AM CDT) Dianne Corona RN Note: 12/17/23: Patient stated she is independent with ASL's. Establish Plan for Symptom Monitoring-CHF General On track(2023 11:36 AM PELLETISING EXTRUDER OPERATOR) Dianne Corona RN Note: Patient will [...] Symptom Monitoring-COPD General On track(2023 11:36 AM PELLETISING EXTRUDER OPERATOR) Dianne Corona RN Note: Patient will [...] Symptom Monitoring-DM General On track(2023 4:33 PM PELLETISING EXTRUDER OPERATOR) Dianne Corona RN Note: Patient will [...] Symptom Monitoring-HTN General On track(2023 4:33 PM PELLETISING EXTRUDER OPERATOR) Dianne Corona RN Note: Patient will [...] Priority Date/Time Associated Diagnosis Comments OUTSIDE LAB COVID-19 (SCAN ORDER) Routine 10/02/2021 documented in this encounter Results * OUTSIDE LAB COVID-19 (SCAN) (10/02/2021) CORONAVIRUS SARS COV 2 PCR (RESP) NOT DETECTED NOT DETECTED [facility] 10/02/2021 us Documents Scanned SCANNING Final Result [facility] documented in this encounter Visit Diagnoses Not on filedocumented in this encounter Additional Health Concerns Assessment Noted Time PHQ-9 Depression Total Score: 0 05/25/19 22 9:23 AM CDT documented as of this encounter Care Teams Electrical Manufacturing Engineer Relationship Specialty Start Date End Date Sanjeev Webster DO [address] [place] [address] PCP - General FAMILY PRACTICE 09/25/20 Dianne Johnson, RN [address] [place] [address] Intake Coordinator (Ambulatory) REGISTERED NURSE 08/14/20 documented as of this encounter
--- OUTSIDE RECORDS SUMMARY | 2024-03-15 01:06 | XMS_ITS | Encounter Summary ---
Author Organization [facility] Address [address] [place] [address]. [place] [address] [place] [address] Care Team Providers Care Plastic Joint Maker Name Role Phone Dianne Johnson RN Unavailable [phone] Sanjeev Webster DO Primary Care Provider + Encounter Details Date Type Department Care Team (Latest Contact Info) Description 09/26/2021 Travel Social History Tobacco Use Types Packs/Day [...] st Contact Info) Description 04/14/2024 2:00 PM DUCT LAYER SUPERVISOR Office Visit [facility] Medical Group Multispecialty Care - [address], [address] [place] [address] Julio Pulido MD 3 [place] [address] documented as of this encounter Goals Goal Patient Goal Type Associated Problems Recent Progress Patient-Stated? Author Health - patient able to perform ADLs independently General On track(2023 9:49 AM CDT) Dianne Corona RN Note: 12/17/23: Patient stated she is independent with ASL's. Establish Plan for Symptom Monitoring-CHF General On track(2023 11:36 AM DUCT LAYER SUPERVISOR) Dianne Corona RN Note: Patient will [...] Symptom Monitoring-COPD General On track(2023 11:36 AM DUCT LAYER SUPERVISOR) Dianne Corona, RN Note: Patient will [...] Symptom Monitoring-DM General On track(2023 4:33 PM DUCT LAYER SUPERVISOR) Dianne Corona RN Note: Patient will [...] Symptom Monitoring-HTN General On track(2023 4:33 PM DUCT LAYER SUPERVISOR) Dianne Corona RN Note: Patient will [...] as of this encounter Care Teams Plastic Joint Maker Relationship Specialty Start Date End Date Sanjeev Webster DO [address] [place] [address] PCP - General FAMILY PRACTICE 09/25/20 Dianne Johnson RN [address] [place] [address] Tire Debeader (Ambulatory) REGISTERED NURSE 08/14/20 documented as of this encounter
--- OUTSIDE RECORDS SUMMARY | 2024-03-15 01:06 | XMS_ITS | Encounter Summary ---
Author Organization [facility] Address [facility] [address] [place] [address] Care Team Providers Care Packaging Manager Name Role Phone Dianne Johnson RN Unavailable [phone] Sanjeev Webster DO Primary Care Provider + Encounter Details Date Type Department Care Team (Latest Contact Info) Description 09/26/2021 - 09/26/2021 11:59 PM CDT Hospital Encounter [facility] [address] [place] [address] Sanjeev Webster DO [address] [place] [address] Discharge Disposition: Home or Self [...] AM CDT documented as of this encounter Medications [...] Chronic obstructive pulmonary disease, unspecified COPD type ([facility]) Inhale 2 puffs into the lungs every 6 (six) hours as needed for Wheezing. 18 g 1 2 10/11/19 22 ALPRAZolam 0.25 MG tabletIndications:A nxiety Take 1 tablet (0.25 mg total) by mouth 2 (two) times daily as needed for Anxiety. 30 tablet 2 10/11/19 22 azelastine (AZELASTINE) 0.1 % nasal sprayIndications:Ch ronic frontal sinusitis,Seasonal allergic rhinitis, unspecified trigger 1 spray by Nasal route 2 (two) times daily. 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 90 tablet 1 2 10/22/19 22 gabapentin 300 MG capsuleIndications: Back pain Take 1 capsule (300 mg total) by mouth 2 (two) times daily. 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, without long-term current use of insulin ([facility] HHS/HCC) 1 strip by Other route daily as needed. 100 strip 1 10/16/19 22 HYDROcodone-acetami nophen (NORCO) 10-325 MG tabletIndications:C hronic Pain Take 1 tablet by mouth every 6 (six) hours as needed for Pain. Indications: Chronic Pain Do not take with alprazolam. No further refills until seen in office. 30 tablet 2 11/16/19 22 Lancets MiscIndications:Typ e 2 diabetes mellitus with diabetic peripheral angiopathy without gangrene, without long-term current use of insulin ([facility] HHS/HCC) Test daily as directed 100 each [...] rapid ventricular response (CMS/HCC HHS/HCC),Diastolic heart failure ([facility] HHS/HCC) Take 1 tablet (25 mg total) [...] 1 1 10/16/19 22 warfarin 6 MG tabletIndications:A trial fibrillation [...] st Contact Info) Description 04/14/2024 2:00 PM ATG JAVA DEVELOPER Office Visit [facility] Medical Group Multispecialty Care - [address], [address] [place] [address] Julio Pulido MD [address] [place] [address] documented as of this encounter Goals Goal Patient Goal Type Associated Problems Recent Progress Patient-Stated? Author Health - patient able to perform ADLs independently General On track(2023 9:49 AM CDT) Dianne Corona, RN Note: 12/17/23: Patient stated she is independent with ASL's. Establish Plan for Symptom Monitoring-CHF General On track(2023 11:36 AM ATG JAVA DEVELOPER) Dianne Corona RN Note: Patient will recognize [...] Symptom Monitoring-COPD General On track(2023 11:36 AM ATG JAVA DEVELOPER) Dianne Corona RN Note: Patient will recognize [...] Symptom Monitoring-DM General On track(2023 4:33 PM ATG JAVA DEVELOPER) Dianne Corona RN Note: Patient will [...] Symptom Monitoring-HTN General On track(2023 4:33 PM ATG JAVA DEVELOPER) No Dianne Johnson RN Note: Patient will [...] documented as of this encounter Care Teams Packaging Manager Relationship Specialty Start Date End Date Sanjeev Webster DO [address] [place] [id number] PCP - General FAMILY PRACTICE 09/25/20 Dianne Johnson, RN [address] [place] [address] Airframe Technician (Ambulatory) REGISTERED NURSE 08/14/20 documented as of this encounter
--- OUTSIDE RECORDS SUMMARY | 2024-03-15 01:06 | XMS_ITS | Encounter Summary ---
Author Organization [facility] Address [address] [place] [address]. [place] [address] [place] [address] Care Team Providers Care Statistician Applied Name Role Phone Dianne Johnson RN Unavailable [phone] Sanjeev Webster DO Primary Care Provider + Encounter Details Date Type Department Care Team (Latest Contact Info) Description 10/08/2021 Travel Social History Tobacco Use Types Packs/Day [...] st Contact Info) Description 04/14/2024 2:00 PM RECORD SEARCHER Office Visit [facility] Medical Group Multispecialty Care - [address], [address] [place] [address] Julio Pulido MD [address] [place] [address] documented as of this encounter Goals Goal Patient Goal Type Associated Problems Recent Progress Patient-Stated? Author Health - patient able to perform ADLs independently General On track(2023 9:49 AM CDT) Dianne Corona RN Note: 12/17/23: Patient stated she is independent with ASL's. Establish Plan for Symptom Monitoring-CHF General On track(2023 11:36 AM RECORD SEARCHER) Dianne Corona RN Note: Patient will recognize [...] Symptom Monitoring-COPD General On track(2023 11:36 AM RECORD SEARCHER) Dianne Corona, RN Note: Patient will recognize [...] Symptom Monitoring-DM General On track(2023 4:33 PM RECORD SEARCHER) Dianne Corona RN Note: Patient will manage [...] Symptom Monitoring-HTN General On track(2023 4:33 PM RECORD SEARCHER) Dianne Corona RN Note: Patient will monitor [...] documented as of this encounter Care Teams Statistician Applied Relationship Specialty Start Date End Date Sanjeev Webster DO [address] [place] [address] PCP - General FAMILY PRACTICE 09/25/20 Dianne Johnson RN [address] [place] [address] Hand Trucker (Ambulatory) REGISTERED NURSE 08/14/20 documented as of this encounter
--- OUTSIDE RECORDS SUMMARY | 2024-03-15 01:06 | XMS_ITS | Encounter Summary ---
Author Organization [facility] Address [facility]6 [facility] [address] [place] [address] Care Team Providers Care Printer'S Assistant Name Role Phone Dianne Johnson RN Unavailable [phone] Sanjeev Webster DO Primary Care Provider + Reason for Visit * Reason Onset Date Comments Results 09/30/2021 Encounter Details Date Type Department Care Team (Late st Contact Info) Description 09/30/2021 Telephone [facility] Medical Group Family & Internal Medicine [address] [place] [address] Sanjeev Webster DO [facility] [place] [address] Results Social History Tobacco Use [...] as of this encounter Progress Notes * Natalee Brown RN - 10/04/2021 11:57 AM CDT Patient came in for INR and was advised of results. LL-10/04/21 * Adrianne Alford - 10/01/2021 11:10 AM CDT Patient called in asking for a callback from the nursing team. * Natalee Brown RN - 09/30/2021 4:57 PM CDT Patient notified and stated she is currently taking Ferosul 325 MG daily. Patient verbalized understanding to all other labs. Opportunity given for all questions to be answered, no further needs voiced at this time. LL-09/30/21 * Natalee Brown RN - 09/30/2021 4:50 PM CDT ----- Message from Sanjeev Webster DO sent at 09/29/2021 11:11 AM CDT ----- Iron is mildly low; is pt taking iron? Pt's thyroid labs are notably abnormal. Will defer to endocrine on recommendations for this. Will await remaining labs. documented in this encounter Plan of Treatment Upcoming Encounters Date Type Department Care Team (Late st Contact Info) Description 04/14/2024 2:00 PM SUPERVISOR RIDES Office Visit [facility] Medical Group Multispecialty Care - [address], [address] [place] [address] Julio Pulido MD 3 [place] [address] documented as of this encounter Goals Goal Patient Goal Type Associated Problems Recent Progress Patient-Stated? Author Health - patient able to perform ADLs independently General On track(2023 9:49 AM CDT) Dianne Corona RN Note: 12/17/23: Patient stated she is independent with ASL's. Establish Plan for Symptom Monitoring-CHF General On track(2023 11:36 AM SUPERVISOR RIDES) Dianne Corona RN Note: Patient will recognize [...] Monitoring-COPD General On track(2023 11:36 AM SUPERVISOR RIDES) Dianne Corona, DALE Note: Patient will recognize [...] Monitoring-DM General On track(2023 4:33 PM SUPERVISOR RIDES) Dianne Corona, RN Note: Patient will manage [...] Monitoring-HTN General On track(2023 4:33 PM SUPERVISOR RIDES) No Dianne Johnson, RN Note: Patient will [...] documented as of this encounter Care Teams Printer'S Assistant Relationship Specialty Start Date End Date Sanjeev Webster DO [address] [place] [address] PCP - General FAMILY PRACTICE 09/25/20 Dianne Johnson, RN [address] [place] [address] Licensed Physical Therapist Assistant (Ambulatory) REGISTERED NURSE 08/14/20 documented as of this encounter
--- OUTSIDE RECORDS SUMMARY | 2024-03-15 01:06 | XMS_ITS | Encounter Summary ---
Author Organization [facility] Address [facility]. [place], [place] [address] [place] [address] Care Team Providers Care Material Inspector Name Role Phone Dianne Johnson RN Unavailable [phone] Sanjeev Webster DO Primary Care Provider + Encounter Details Date Type Department Care Team (Latest Contact Info) Description 09/13/2021 9:34 AM CDT - 09/13/2021 11:59 PM CDT Hospital Encounter [facility] [place] [address] Sanjeev Webster DO [facility] [place] [address] Discharge Disposition: Home or Self [...] Chronic obstructive pulmonary disease, unspecified COPD type ([facility]) Inhale 2 puffs into the lungs every 6 (six) hours as needed for Wheezing. 18 g 1 2 10/11/19 22 ALPRAZolam 0.25 MG tabletIndications:A nxiety Take 1 tablet (0.25 mg total) by mouth 2 (two) times daily as needed for Anxiety. 30 tablet 2 10/11/19 22 amiodarone 200 MG tablet Take 100 mg by mouth daily. 0 09/27/19 22 azelastine (AZELASTINE) 0.1 % nasal sprayIndications:Ch ronic frontal sinusitis,Seasonal allergic rhinitis, unspecified trigger 1 spray by Nasal route 2 (two) times daily. Use in each nostril as directed 30 mL 1 1 10/16/19 22 Blood Glucose Monitoring Suppl (ONE TOUCH ULTRA 2) w/Device KitIndications:Type 2 diabetes mellitus with diabetic peripheral angiopathy without gangrene, without long-term current use of insulin ([facility]) Use daily as directed 1 kit 1 [...] congestive heart failure, unspecified heart failure type ([facility] HHS/HCC) Take 1 tab every other day. 90 tablet 1 2 10/22/19 22 gabapentin 300 MG capsuleIndications: Back pain Take 1 capsule (300 mg total) by mouth 2 (two) times daily. 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, without long-term current use of insulin ([facility] HHS/HCC) 1 strip by Other route daily [...] gangrene, without long-term current use of insulin ([facility]) Test daily as directed 100 each 1 [...] tabletIndications:A trial fibrillation with rapid ventricular response ([facility] HHS/HCC),Diastolic heart failure ([facility] HHS/HCC) Take 1 tablet (25 mg total) [...] Contact Info) Description 04/14/2024 2:00 PM BUSINESS PLANNING MANAGER Office Visit [facility] Medical Group Multispecialty Care - [facility] 3 [facility], [address] [place] [phone] Julio Pulido MD [address] [place] [address] documented as of this encounter Goals Goal Patient Goal Type Associated Problems Recent Progress Patient-Stated? Author Health - patient able to perform ADLs independently General On track(2023 9:49 AM CDT) Dianne Corona RN Note: 12/17/23: Patient stated she is independent with ASL's. Establish Plan for Symptom Monitoring-CHF General On track(2023 11:36 AM BUSINESS PLANNING MANAGER) Dianne Corona RN Note: Patient will [...] Monitoring-COPD General On track(2023 11:36 AM BUSINESS PLANNING MANAGER) Dianne Corona RN Note: Patient will [...] Monitoring-DM General On track(2023 4:33 PM BUSINESS PLANNING MANAGER) Dianne Corona RN Note: Patient will [...] Monitoring-HTN General On track(2023 4:33 PM BUSINESS PLANNING MANAGER) No Dianne Johnson, RN Note: Patient [...] documented as of this encounter Care Teams Material Inspector Relationship Specialty Start Date End Date Sanjeev Webster DO [address] [place] [phone] PCP - General FAMILY PRACTICE 09/25/20 Dianne Johnson, RN [address] [place] [address] [address] Officer (Ambulatory) REGISTERED NURSE 08/14/20 documented as of this encounter
--- OUTSIDE RECORDS SUMMARY | 2024-03-15 01:06 | XMS_ITS | Encounter Summary ---
Author Organization [facility] Address [facility]6 [facility]. [place], [place] [address] [place] [address] Care Team Providers Care Rn Neurosurgical Name Role Phone Dianne Johnson RN Unavailable [phone] Sanjeev Montez DO Primary Care Provider + Reason for Visit * Reason Onset Date Comments Follow Up Call 10/10/2021 Encounter Details Date Type Department Care Team (Late st Contact Info) Description 10/10/2021 Telephone [facility] Medical Group Family & Internal Medicine [address] [address] Sanjeev Monetz DO [address] [place] [address] Follow Up Call Social History Tobacco [...] Progress Notes * Scarlett Guerrero MA - 10/16/2021 3:00 PM CDT Patient was admitted to [facility], will discuss at next OV 10/16/21 * Sanjeev Montez DO - 10/10/2021 9:10 PM CDTAddended by: SANJEEV MONTEZ on: 10/10/2021 09:10 PM Modules accepted: Orders * Sanjeev Montez DO - 10/10/2021 9:09 PM CDT 1. Refilled; emphasize importance of not mixing alprazolam with pain medicine. 2. Ok to remove all medicines pt is not taking except amiodarone; will need to confirm this detail in office. 3. Will recheck in office; strongly recommend checking at home as well at least daily. * Dianne Johnson RN - 10/10/2021 12:23 PM CDT Images from the original note were not included. D/C from [facility] on 10/05/21. information technology coordinator did not find out about D/C until 10/09/21 which is past the 2 business days to complete TCM call back. Hospital f/u appointment scheduled with on 10/15/21 with f/u INR. Medication list was reconciled. Please address the followin. Patient requesting refill for alprazolam and albuterol inhaler sent to [facility] in [place].Patient's been out of alprazolam and Izzy said she hasn't been giving it to her. See fill hx from PDMP review below: 2. FYI: Compared medication list from [facility] versus medication list in [facility] with Izzy (daughter -in-law) and patient. Several discrepancies noted. Medications in [facility] and not on [facility] D/C summary: Oxymetazoline 0.05 % nasal spray [...] - Patient is not taking per patient. Amiodarone 200 mg take 100 mg daily on [place] medication list but not in [facility]. Izzy stated a doctor D/C this medication and she doesn't recall who D/C it. 3. Please have address at upcoming visit. Not checking B/P since hospitalization. B/Pwas soft in the hospital. See below for details: Patient staying with a friend right now and will ask friend to check B/P daily, record readings andbring to upcoming appointment. Denies dizziness or lightheadedness. Stated sometimes I feel like I'm walking side ways. Thank you. documented in this encounter Plan of Treatment Upcoming Encounters Date Type Department Care Team (Late st Contact Info) Description 04/14/2024 2:00 PM BLACKSMITH HELPER Office Visit [facility] Medical Group Multispecialty Care - [address], [address] [place] [address] Julio Pulido MD [address] [place] [address] documented as of this encounter Goals Goal Patient Goal Type Associated Problems Recent Progress Patient-Stated? Author Health - patient able to perform ADLs independently General On track(2023 9:49 AM CDT) Dianne Corona RN Note: 12/17/23: Patient stated she is independent with ASL's. Establish Plan for Symptom Monitoring-CHF General On track(2023 11:36 AM BLACKSMITH HELPER) Dianne Corona RN Note: Patient will [...] Symptom Monitoring-COPD General On track(2023 11:36 AM BLACKSMITH HELPER) Dianne Corona RN Note: Patient will [...] Symptom Monitoring-DM General On track(2023 4:33 PM BLACKSMITH HELPER) Dianne Corona RN Note: Patient will [...] Symptom Monitoring-HTN General On track(2023 4:33 PM BLACKSMITH HELPER) No Dianne Johnson, RN Note: Patient will monitor B/P several times per week , record readings and report to physician or CC if B/P consistently >130/80 Take your medications as prescribed. Follow up with your provider as scheduled. Take your blood pressure at least several times a week if able. documented as of this encounter Visit Diagnoses Diagnosis Anxiety Anxiety state, unspecified Chronic obstructive pulmonary disease, unspecified COPD type ([facility]) documented in this encounter Additional Health Concerns Assessment Noted Time PHQ-9 Depression Total Score: 0 05/25/19 22 9:23 AM CDT documented as of this encounter Care Teams Rn Neurosurgical Relationship Specialty Start Date End Date Sanjeev Montez DO [address] [place] [address] PCP - General FAMILY PRACTICE 09/25/20 Dianne Johnson, RN [facility] [place] [address] Substance Abuse Rn (Ambulatory) REGISTERED NURSE 08/14/20 documented as of this encounter
--- OUTSIDE RECORDS SUMMARY | 2024-03-15 01:06 | XMS_ITS | Encounter Summary ---
Author Organization [facility] Address [facility] [facility] [place] [address] [place] [address] Care Team Providers Care Salesperson Women'[employer] Name Role Phone Dianne Johnson RN Unavailable [phone] Sanjeev Webster DO Primary Care Provider + Reason for Visit * Reason Onset Date Comments Results 09/20/2021 Encounter Details Date Type Department Care Team (Late st Contact Info) Description 09/20/2021 Telephone [facility] Family & Internal Medicine [id number] [place] [address] Sanjeev Webster DO [facility] [place] [address] Results Social History Tobacco Use [...] Notes * Scarlett Guerrero MA - 09/20/2021 3:26 PM CDT Izzy notified and v/u * Scarlett Guerrero MA - 09/20/2021 3:26 PM CDT ----- Message from Sanjeev Webster DO sent at 09/20/2021 3:01 PM CDT ----- COVID is negative. Continue meds as prescribed. documented in this encounter Plan of Treatment Upcoming Encounters Date Type Department Care Team (Late st Contact Info) Description 04/14/2024 2:00 PM AEROPHYSICS ENGINEER Office Visit [facility] Multispecialty Care - [facility] [address] [facility], [address] [place] [address] Julio Pulido MD [address] [place] [address] documented as of this encounter Goals Goal Patient Goal Type Associated Problems Recent Progress Patient-Stated? Author Health - patient able to perform ADLs independently General On track(2023 9:49 AM CDT) Dianne Corona, RN Note: 12/17/23: Patient stated she is independent with ASL's. Establish Plan for Symptom Monitoring-CHF General On track(2023 11:36 AM AEROPHYSICS ENGINEER) Dianne Corona, RN Note: Patient will [...] Symptom Monitoring-COPD General On track(2023 11:36 AM AEROPHYSICS ENGINEER) Dianne Corona RN Note: Patient will [...] Symptom Monitoring-DM General On track(2023 4:33 PM AEROPHYSICS ENGINEER) Dianne Corona, RN Note: Patient will [...] Symptom Monitoring-HTN General On track(2023 4:33 PM AEROPHYSICS ENGINEER) Dianne Corona RN Note: Patient will [...] documented as of this encounter Care Teams Salesperson [employer] Relationship Specialty Start Date End Date Sanjeev Webster DO [address] [place] [id number] PCP - General FAMILY PRACTICE 09/25/20 Dianne Johnson, RN [address] [place] [address] Risk Specialist (Ambulatory) REGISTERED NURSE 08/14/20 documented as of this encounter
--- OUTSIDE RECORDS SUMMARY | 2024-03-15 01:06 | XMS_ITS | Encounter Summary ---
Author Organization [facility] Address [facility] 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 Name Role Phone Dianne Johnson RN Unavailable [phone] Sanjeev Webster DO Primary Care Provider + Reason for Referral * Imaging (Urgent) - Closed Specialty Diagnoses / Procedures Referred By Ian t Referred To Contact RADIOLOGY Procedures CT ABD+PEL W CON Thanh Boss APRN [address] [place] [id number] Phone: tel: fax: Referral ID Status Reason Start Date Expiration Date Visits Re quested Visits Authorized [id number] Closed 09/17/2021 10/18/2022 1 1 Reason for Visit * Reason Comments Nausea Encounter Details Date Type Department Care Team (Late st Contact Info) Description 09/17/2021 7:42 PM CDT - 09/18/2021 12:21 AM CDT Emergency [facility] [place] [address] Sarthak Chin MD,PHD [address] [place] [id number] Nausea Discharge Disposition: Home or Self Care (Routine [...] Sign Reading Time Taken Comments Blood Pressure 174/70 09/17/2021 11:00 PM CDT Pulse 83 09/17/2021 11:00 PM CDT Temperature 36.6 ??C (97.9 ??F) 09/17/2021 7:25 PM CD T Respiratory Rate 16 09/17/2021 11:00 PM CDT Oxygen Saturation 92% 09/17/2021 11:00 PM CDT Inhaled Oxygen Concentration - - Weight 85.7 kg (188 lb 15 oz) 09/17/2021 7:25 PM CDT Height 162.6 cm (5' 4 ) 09/17/2021 7:25 PM CDT Body Mass Index 32.43 09/17/2021 7:25 PM CDT documented in this encounter Discharge Instructions * Attachments The following attachments cannot be sent through Care Everywhere. * Gallbladder Diet (Eritrean) * Gallstones Discharge Instructions (Eritrean) documented in this encounter Medications at Time of Discharge acetaminophen (TYLENOL) 500 MG tablet Take 1 tablet (500 mg total) by mouth daily as needed. No more then 2500 mg per day. Cholecalciferol (VITAMIN D3) 25 MCG (1000 UT) Cap Take 1 capsule (1,000 Units total) by mouth daily. albuterol sulfate HFA 108 (90 Base) MCG/ACT inhalerIndications: Chronic obstructive pulmonary disease, unspecified COPD type (CMS/[facility]) Inhale 2 puffs into the lungs every [...] without long-term current use of insulin ([facility]) Use daily as directed 1 kit 1 [...] congestive heart failure, unspecified heart failure type ([facility]) Take 1 tab every other day. 90 tablet 1 2 10/22/19 22 gabapentin 300 MG capsuleIndications: Back pain Take 1 capsule (300 mg total) by mouth 2 (two) times daily. 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, without long-term current use of insulin ([facility]) 1 strip by Other route daily as [...] long-term current use of insulin (CMS/HCC HHS/HCC) Test daily as directed 100 each [...] rapid ventricular response (CMS/HCC HHS/HCC),Diastolic heart failure (CMS/[facility] HHS/HCC) Take 1 tablet (25 mg total) [...] 10/16/19 22 documented as of this encounter ED Notes * Sarthak Chin MD,PHD - 09/17/2021 11:55 PM CDT EMERGENCY DEPARTMENT ENCOUNTER Chief Complaint Chief Complaint Patient presents with ??? Nausea History of Present Illness Provider at Bedside Date/Time Event User Comments 09/17/211910 Provider at Bedside Assessing Patient THANH BOSS -- 76-year-old female presenting to the emergency department for abdominal pain. The onset was gradual. The duration is a few weeks. The course is constant and gradually worsening. It is located diffusely. It is exacerbated by bending over, but is not exacerbated by eating. Patient is unable to recall any test results or what her PCP diagnosed her with but does states she had an ultrasound at [facility]. Per medical records, the results of an ultrasound on 09/10/32 show a gallstone with equivocal signes of acute cholecystitis. Her PCP last noted he will refer general surgery urgently. Medical History ALLERGIES: Allergies Allergen Reactions ??? [...] Date End Date Taking? Authorizing Provider acetaminophen 325 MG tablet Take 650 mg by mouth daily as needed. 08/17/20 Doc Abstract albuterol sulfate HFA 108 (90 Base) MCG/ACT inhaler Inhale 2 puffs into the lungs every 6 (six) hours as needed for Wheezing. 08/13/21 Sanjeev Webster, DO ALPRAZolam 0.25 MG tablet Take 1 tablet (0.25 mg total) by mouth 2 (two) times daily as needed for Anxiety. 04/19/21 MARU Hodge amiodarone 200 MG tablet Take 100 mg by mouth daily. 10/05/19 Doc Abstract azelastine (AZELASTINE) 0.1 % nasal spray 1 spray by Nasal route 2 (two) times daily. Use in each nostril as directed Patient taking differently: 1 spray by Nasal route 2 (two) times daily. Use in each nostril as directed prn 05/21/20 Juan Pablo Dominguez MD Blood Glucose Monitoring Suppl (ONE TOUCH ULTRA 2) w/Device Kit Use daily as directed 01/15/21 Sanjeev Webster DO Cholecalciferol (VITAMIN D3) 25 MCG (1000 UT) Cap Take 1,000 Units by mouth daily. Doc Abstract CONTOUR NEXT TEST test strip USE 1 STRIP TO CHECK GLUCOSE THREE TIMES DAILY 03/23/19 Doc Abstract FEROSUL 325 (65 Fe) MG tablet Take 1 tablet by mouth once daily 06/27/21 Sanjeev Webster, DO fluticasone propionate 50 MCG/ACT nasal spray 2 sprays by Nasal route daily. Doc Abstract furosemide 20 MG tablet Take 1 tab every other day. 05/24/21 Sanjeev Webster DO gabapentin 300 MG capsule Take 1 capsule (300 mg total) by mouth 2 (two) times daily. 07/16/20 Juan Pablo Dominguez MD Glucose Blood test strip 1 strip by Other route daily as needed. 01/15/21 Sanjeev Webster DO HYDROcodone-acetaminophen 10-325 MG tablet Take 1 tablet by mouth every 6 (six) hours as needed forPain. Indications: Chronic Pain Do not take with alprazolam. No further refills until seen in office. 08/13/21 Sanjeev Webster, DO Lancets Misc Test daily as directed 01/15/21 Sanjeev Webster, DO lidocaine 5 % Apply pain patch to affected area. Change after 12 hours. 08/30/20 Trina Hoffman NP LISINOPRIL 40 MG tablet Take 1 tablet by mouth once daily 03/11/21 Sanjeev Webster, DO methIMAzole 5 MG tablet Take 1 tablet (5 mg total) by mouth daily. 08/30/21 Panda Moreno MD metoprolol succinate ER 25 MG 24 hr tablet Take 1 tablet (25 mg total) by mouth daily. 09/02/21 Sanjeev Webster, DO OMEPRAZOLE 20 MG capsule Take 1 capsule by mouth once daily 06/17/21 Sanjeev Webster, DO oxymetazoline 0.05 % nasal spray Not to exceed 3 days. May use for 3 days then refrain for 3 days and repeat as needed. 05/21/20 Juan Pablo Dominguez MD rosuvastatin 5 MG tablet Take 1 tablet (5 mg total) by mouth nightly at bedtime. 08/14/21 Sanjeev Webster, DO VENLAFAXINE XR 150 MG 24 hr capsule Take 1 capsule by mouth once daily 06/17/21 Sanjeev Webster, DO warfarin 1 MG tablet Take 3 tablets (3 mg total) by mouth see administration instructions. With 6mgtablet on , fridays and mondays11/22/20 Sanjeev Webster, DO warfarin 6 MG tablet Take 1 tablet (6 mg total) by mouth daily. Patient taking differently: 9 mg on Mondays and 6 mg the other days 02/06/21 Sanjeev Webster, DO warfarin 6 MG tablet Take 1 tablet (6 mg total) by mouth daily. Take 6 mg every day except Thu and Thursday. Take 9 mg on Thu and Thursday09/02/21 Sanjeev Webster, DO PAST MEDICAL HISTORY: Past Medical History: [...] Hydrocodone Comment: chronic pain Review of Systems Constitutional: Negative for chills and fever. Respiratory: Negative for cough and shortness of breath. Cardiovascular: Negative for chest pain, Negative for leg swelling Gastrointestinal: See HPI. All other systems reviewed and are negative except as in HPI and as noted above Physical Exam Filed Vitals: 09/17/21 1925 09/17/21 2300 BP: (!) 146/76 (!) 174/70 Pulse: 78 83 Resp: 14 16 Temp: 97.9 ??F (36.6 ??C) TempSrc: Temporal SpO2: 95% 92% Weight: 85.7 kg (188 lb 15 oz) Height: 5' 4 (1.626 m) CONSTITUTIONAL: Patient is awake, alert, in no acute distress, conversant HEAD AND FACE: Normocephalic, atraumatic EYES: Normal sclera, extraocular motions grossly normal NECK: Supple, no obvious asymmetry CARDIOVASCULAR: RRR, normal S1-S2, no clicks murmurs rubs or gallops are appreciated RESPIRATORY: No respiratory distress or tachypnea, clear to auscultation bilaterally without rales,rhonchi, wheezes ABDOMEN: Soft, mild diffuse nonspecific tenderness NEUROLOGIC: GCS 15, CN2-12 grossly intact, moves all extremities EXTREMITIES: Warm, no edema Diagnostic Studies / Procedures ELECTROCARDIOGRAMS: EKG, TIME 2022 Rate 60, normal sinus rhythm, no ectopy, P waves poorly seen due to baseline noise, intraventricular conduction delay, normal axis, no concordant ST elevations Interpretation by me: no acute ischemic changes LABORATORY STUDIES: Results for orders placed or performed during the hospital encounter of 09/17/21 CBC W/DIFF AUTOMATED Result Value Ref Range WBC 6.4 4.5 - 11.0 x10'3/uL RBC 3.32 (L) 4.20 - 5.40 x10'6/uL HGB 10.9 (L) 12.0 - 16.0 G/DL HCT 34.5 (L) 38.0 - 48.0 % MCV 103.9 (H) 81.0 - 99.0 FL MCH 32.8 (H) 27.0 - 31.0 PG MCHC 31.6 (L) 32.0 - 36.0 G/DL RDW 12.2 11.5 - 14.5 % PLT 208 130 - 400 x10'3/uL MPV 12.3 (H) 9.3 - 12.2 FL DIFFERENTIAL TYPE AUTOMATED DIFFERENTIAL NEUTROPHILS 69.7 % LYMPHOCYTES 14.4 % MONOCYTES 12.9 % EOSINOPHILS 1.9 % BASOPHILS 0.8 % IMMATURE GRANS 0.3 % ABS. NEUTROPHILS TOTAL 4.45 1.80 - 7.70 x10'3/uL ABS. LYMPHOCYTES 0.92 (L) 1.00 - 4.80 x10'3/uL ABS. MONOCYTES 0.82 0.24 - 0.86 x10'3/uL ABS. EOSINOPHILS 0.12 0.04 - 0.36 x10'3/uL ABS. BASOPHILS 0.05 0.01 - 0.08 x10'3/uL ABS. IMMATURE GRANULOCYTES 0.02 0.00 - 0.49 x10'3/uL COMPREHENSIVE METABOLIC PANEL Result Value Ref Range GLUCOSE 118 (H) 70 - 99 MG/DL BUN 21 (H) 7 - 18 MG/DL CREATININE S/P/B 1.19 (H) 0.55 - 1.02 MG/DL SODIUM 142 136 - 145 MMOL/L POTASSIUM 4.6 3.5 - 5.1 MMOL/L CHLORIDE S/P/B 110 (H) 100 - 108 MMOL/L CO2 28.5 21 - 32 MMOL/L CALCIUM 10.0 8.5 - 10.1 MG/DL BILIRUBIN TOTAL S/P/B 0.2 0.2 - 1.2 MG/DL TOTAL PROTEIN S/P/B 6.9 6.4 - 8.2 G/DL ALBUMIN S/P/B 3.2 (L) 3.4 - 5.0 G/DL AST 16 15 - 37 U/L ALT 22 14 - 55 U/L ALKALINE PHOSPHATASE S/P/B 62 50 - 136 U/L ANION GAP 3.5 (L) 5 - 15 MMOL/L BUN CREATININE RATIO 17.6 6 - 26 A/G RATIO 0.9 (L) 1.0 - 2.0 RATIO GFR ESTIMATE 47 (L) >90 ML/MIN/1.73 M2 LIPASE Result Value Ref Range LIPASE 122 73 - 393 UNITS/L TROPONIN, QUANT Result Value Ref Range TROPONIN I HIGH SENSITIVITY 16 <54 ng/L PROTIME/INR, VENOUS Result Value Ref Range Protime 83.3 (H) 10.2 - 12.9 SEC INR 6.8 (HH) PARTIAL THROMBOPLASTIN TIME,PTT Result Value Ref Range PTT 57.9 (H) 25.1 - 36.[address] ABD+PEL W CON Final Result by User, [id number] (09/17 2238) Examination: CT abdomen and pelvis with IV contrast. Clinical Information: Right upper quadrant pain. Comparison:No comparison. Technique: IV contrast: 100 mL Isovue 370. Oral contrast: None. Technical comments: Standard technique. Dose reduction: This CT exam was performed using one or more of the following dose reduction techniques: Automated exposure control, adjustment of the mA and/or kV according to patient size, and/or use of iterative reconstruction technique. Findings: LOWER CHEST Heart is mildly enlarged. Lung bases are clear. No pleural or pericardial effusions. UPPER ABDOMEN Liver and bile ducts: Normal in size and contour. [...] or hydronephrosis. Bilateral renal cysts. Tiny nonobstructing right renal stone. Lymph nodes: No lymphadenopathy in the [...] a common origin consistent with celiacomesenteric trunk. There appears to be mild to moderate stenosis of [...] mild to moderate stenosis. Ordered By: THANH BOSS Interpreted By: Dov Bryson MD, 09/17/2021 10:28 PM ED Course / Medical Decision Making Patient presenting with a chief complaint of abdominal pain In the differential diagnosis I considered anemia or other hematologic abnormality, electrolyte derangement, metabolic derangement, liver dysfunction, renal dysfunction, biliary tract pathology including cholecystitis cholangitis choledocholithiasis and symptomatic cholelithiasis, pancreatitis, hollow viscus obstruction, hollow viscus rupture, intra-abdominal infections including appendicitis anddiverticulitis, urinary tract infection, nephrolithiasis, acute coronary syndrome I reviewed the patient's labs, which are significant for a supratherapeutic INR but unremarkable LFTs I reviewed the radiologist's interpretation of the patient's radiologic diagnostics which is significant for abnormal appearance of the gallbladder of uncertain etiology. I reviewed the patient's EKG, as above, combined with a high-sensitivity troponin rules out acute coronary syndrome in the setting of greater than 2 hours of symptoms. I reviewed old medical records, obtained from care everywhere, as well as internal past medical records I interpreted the patient's pulse oximeter at rest, which is 96% on room air, which is normal and determined that this patient is not hypoxic I interpreted the patient's shrimp peeler as showing a sinus rhythm and hemodynamic stability The patient is instructed to hold today's warfarin dose, and call her primary care physician in themorning for further instructions. The patient has an appointment already scheduled for general surgery. There is no signs of biliary obstruction or biliary/gallbladder infection at this time, thus no emergent surgical intervention isnot indicated, especially in the setting of a supratherapeutic INR. The patient was thus deemed stable for discharge from emergency department. A scribe was present to assist with the documentation of the encounter. Scribe documentation was reviewed by me and was edited by me to reflect my assessment of the HPI, review of systems, past medical history, past surgical history, past family history, social history, medication list, allergies, and examination. These elements of documented above were personally obtained by me via direct interaction of the patient when possible, with the exception of circumstances or patient factors limiting my ability to do so. In instances where nursing or other providers documented this information priorto my encounter, I personally confirmed the accuracy of this information to the best of my ability given the circumstances. Medications ondansetron (ZOFRAN) injection 4 mg (has no administration in time range) cwhgywxuz-xszyezii-jbxobbbabma (MYLANTA MAXIMUM STRENGTH) 5796-8442-202 mg/30mL suspension (has no administration in time range) iopamidol (ISOVUE-370) 76 % injection 100 mL (100 mLs Intravenous Given 09/17/212117) Clinical Impression Supratherapeutic INR (Primary) Abdominal pain Disposition: Discharge home Patient provided with printed and verbal discharge care instructions and was instructed to return to the emergency department immediately with worsening symptoms or new worrisome symptoms. Patient was instructed to follow-up with primary care physician within 1 week for further evaluation and treatment. Diagnoses & treatment discussed with patient Patient expressed understanding and agreed. Sarthak Chin MD,PHD 09/24/212117 * Heidi Maza RN - 09/17/2021 8:46 PM CDT Called lab for add on ptt and pt/inr HEIDI MAZA RN * Heidi Maza RN - 09/17/2021 7:44 PM CDT Called with no response from wr HEIDI MAZA RN * Tiki Akers RN - 09/17/2021 7:23 PM CDT Pt presents to ED with c/o lower abd pain x2 weeks. PT reports having an ultrasound with PCP that discovered gallstones. Pt denies any n/v/d. Denies urinary symptoms. * Thanh Boss APRN - 09/17/2021 7:11 PM CDT [place], [place] EMERGENCY DEPARTMENT ENCOUNTER Medical Screening Examination 09/17/21 7:37 PM Chief Complaint : Nausea HPI : Ana Maria Bobo is a 76-year-old female who presents to the ED today for evaluation of upper abdominal pain in the middle and right quadrant. Patient states she was told she has gallstones.She states the pain is worsened and her primary told her to come here. Denies any fever or chills. Denies any chest pain or shortness of breath. Denies any nausea, vomiting diarrhea. Vital Signs: Filed Vitals: 09/17/211924 BP: (!) 146/76 Pulse: 78 Resp: 14 Temp: 97.9 ??F (36.6 ??C) TempSrc: Temporal SpO2: 95% Weight: 85.7 kg (188 lb 15 oz) Height: 5' 4 (1.626 m) Physical exam: A brief physical exam was completed to facilitate/expedite patient care. Paz findings include: alert, stable Plan: Labs & Imaging was ordered to facilitate patient care., Analgesics were ordered to faciliate patient care. and Antiemetics were ordered to faciliate patient care. Thanh Boss, KRANTHI 09/17/2021 Thanh Boss, ENTRY LEVEL PROGRAMMER 09/17/211936 Cosigned by Randy Cook MD at 09/17/2021 10:57 PM CDT documented in this encounter Plan of Treatment Upcoming Encounters Date Type Department Care Team (Late st Contact Info) Description 04/14/2024 2:00 PM CLINICAL DIETETIC TECHNICIAN Office Visit [facility] - [facility] [address], [address] [place] [address] Julio Pulido MD [address] [place] [address] documented as of this encounter Goals Goal Patient Goal Type Associated Problems Recent Progress Patient-Stated? Author Health - patient able to perform ADLs independently General On track(2023 9:49 AM CDT) Dianne Corona, RN Note: 12/17/23: Patient stated she is independent with ASL's. Establish Plan for Symptom Monitoring-CHF General On track(2023 11:36 AM CLINICAL DIETETIC TECHNICIAN) Dianne Corona, RN Note: Patient will [...] Monitoring-COPD General On track(2023 11:36 AM CLINICAL DIETETIC TECHNICIAN) Dianne Corona RN Note: Patient will [...] Monitoring-DM General On track(2023 4:33 PM CLINICAL DIETETIC TECHNICIAN) Dianne Corona RN Note: Patient will [...] Monitoring-HTN General On track(2023 4:33 PM CLINICAL DIETETIC TECHNICIAN) Dianne Corona RN Note: Patient will [...] Name Priority Date/Time Associated Diagnosis Comments CT ABD+PEL W CON STAT 09/17/2021 9:17 PM CDT PARTIAL THROMBOPLASTIN TIME,PTT STAT 09/17/2021 8:46 PM CDT PROTHROMBIN TIME, VENOUS STAT 09/17/2021 8:46 PM CDT ECG 12-LEAD Routine 09/17/2021 8:23 PM CDT COMPREHENSIVE METABOLIC PANEL STAT 09/17/2021 8:15 PM CDT CBC W/DIFF AUTOMATED STAT 09/17/2021 8:15 PM CDT TROPONIN, QUANT STAT 09/17/2021 8:15 PM CDT LIPASE STAT 09/17/2021 8:15 PM CDT documented in this encounter Results * CT ABD+PEL W CON (09/17/2021 9:17 PM CDT) Anatomical Region Laterality Modality Abdomen Computed Tomogra phy 09/17/2021 10:2 8 PM CDT Impressions 09/17/2021 10:38 PM CDT Impression: 1. Focal wall thickening of the [...] mild to moderate stenosis. Ordered By: THANH BOSS Interpreted By: Dov Bryson MD, 09/17/2021 10:28 PM Narrative 09/17/2021 10:38 PM CDT Examination: CT abdomen and pelvis with IV contrast. Clinical Information: Right upper quadrant pain. Comparison:No comparison. Technique: IV contrast: 100 mL Isovue 370. Oral contrast: None. Technical comments: Standard technique. Dose reduction: This CT exam was performed using one or more of the following dose reduction techniques: Automated exposure control, adjustment of the mA and/or kV according to patient size, and/or use of iterative reconstruction technique. Findings: LOWER CHEST Heart is mildly enlarged. Lung bases are clear. No pleural or pericardial effusions. UPPER ABDOMEN Liver and bile ducts: Normal in size and contour. [...] or hydronephrosis. Bilateral renal cysts. Tiny nonobstructing right renal stone. Lymph nodes: No lymphadenopathy in the [...] a common origin consistent with celiacomesenteric trunk. There appears to be mild to moderate stenosis of the origin related to these calcifications. PELVIS No abnormality. BONES/SOFT TISSUES Mild to moderate multilevel spondylosis. No acute osseous abnormality is identified. Procedure Note Dov Bryson MD - 09/17/2021 Examination: CT abdomen and pelvis with IV contrast. Clinical Information: Right upper quadrant pain. Comparison:No comparison. Technique: IV contrast: 100 mL Isovue 370. Oral contrast: None. Technical comments: Standard technique. Dose reduction: This CT exam was performed using one or more of thefollowing dose reduction techniques: Automated exposure control,adjustment of the mA and/or kV according to patient size, and/or use ofiterative reconstruction technique. Findings: LOWER CHEST Heart is mildly enlarged. Lung bases are clear. No pleural or pericardialeffusions. UPPER ABDOMEN Liver and bile ducts: Normal in size and contour. Nonspecific focalcalcifications identified involving the lateral right capsular surface,possibly from previous injury or a granulomatous process. Portal vein andhepatic veins are patent. No biliary dilatation. Gallbladder: No gallstones or evidence of cholecystitis. There is anabnormal region of wall thickening involving the gallbladder fundusmeasuring 1.5 cm (series 2 image 49). This appears to enhance and isoverall nonspecific but cannot exclude malignancy. Pancreas: Normal. Spleen: Normal. RETROPERITONEUM Adrenals: Normal. Kidneys: Enhance symmetrically with no solid mass or hydronephrosis.Bilateral renal cysts. Tiny nonobstructing right renal stone. Lymph nodes: No lymphadenopathy in the abdomen or pelvis. BOWEL AND PERITONEUM Bowel: No bowel obstruction. The appendix is unremarkable. Diffuse colonicdiverticulosis. There is wall thickening of the mid sigmoid colon withadjacent hazy fat stranding, raising concern for mild acutediverticulitis. No perforation or abscess identified. Free air or fluid: None. VASCULATURE Atherosclerotic calcification of the abdominal aorta and its brancheswithout aneurysm. Anatomic variant of the celiac artery and SMAdemonstrating a common origin consistent with celiacomesenteric trunk.There appears to be mild to moderate stenosis of the origin related tothese calcifications. PELVIS No abnormality. BONES/SOFT TISSUES Mild to moderate multilevel spondylosis. No acute osseous abnormality isidentified. Impression: 1. Focal wall thickening of the gallbladder fundus measuring 1.5 cm withfindings suggestive of enhancement. This is of uncertain etiology and mayrepresent extensive adenomyomatosis but cannot definitively exclude agallbladder malignancy. Could further correlate with ultrasound. Nogallstones or distinct findings of cholecystitis. 2. Small bilateral renal cysts. Tiny nonobstructing right renal stone. 3. Diffuse colonic diverticulosis. Wall thickening and inflammatorychanges of the mid sigmoid colon suggestive of acute diverticulitis. Noperforation or abscess. 4. 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 There is notable atherosclerotic calcification ofthe origin of this trunk resulting in mild to moderate stenosis. Ordered By: THANH BOSS Interpreted By: Dov Bryson MD, 09/17/2021 10:28 PM Thanh Boss ENTRY LEVEL PROGRAMMER CT Final Result * (ABNORMAL) PARTIAL THROMBOPLASTIN TIME,PTT (09/17/2021 8:46 PM CDT) PTT 57.9(H) 25.1 - 36.5 SEC 09/17/2021 9:34 PM CDT [facility] 09/17/2021 8:46 PM CDT Sarthak Chin MD,PHD LABORATORY Final Resu lt [facility] [address] [place] [id number], [place] [phone] * (ABNORMAL) PROTIME/INR, VENOUS (09/17/2021 8:46 PM CDT) PROTIME 83.3(H) 10.2 - 12.9 SEC 09/17/2021 9:34 PM CDT [facility] INR 6.8(HH) 09/17/2021 9:34 PM CDT [facility] Comment: Recommended INR Therapeutic Goals: ??2.0-3.0 Routine Therapy ??2.5-3.5 Mechanical Prosthetic Valves (High Risk) Successful Call: INR called 09/17/2021 09:35 PM to EMERGENCY ROOM ([id number]/[facility]) by [id number]. 09/17/2021 8:46 PM CDT Sarthak Chin MD,PHD LABORATORY Final Resu lt [facility] [address] [place] [id number], [place] [phone] * ECG 12 lead (09/17/2021 8:23 PM CDT) 09/17/2021 8:23 PM CDT Narrative [facility] ([facility] RAD - 09/19/2021 3:14 PM CDT ?[facility] ? [address] [place] ? Test Date: ?2021-09-17 Pat Name: ? ANA MARIAMARIA BOBO ?Department: ?? 41 ? Room: ? EXAM17 Gender: ? Female ? Executive Associate: ?? [facility] : ?1945 ? Requested By: THANH BOSS Order Number: [id number] ? Reading MD: ?? Zachary Bolden ? Measurements Intervals ?[place] ? Rate: ? 60 ? P: ?-40 NE: ? 236 ?QRS: ?-23 QRSD: ? 149 ?T: ?76 QT: ? 429 ? QTc: ?431 ? Interpretive Statements SINUS RHYTHM WITH FIRST DEGREE AV BLOCK LEFT BUNDLE BRANCH BLOCK CRITICAL ALERT ISSUED ON 09-17-2021 20:45:00 No previous ECG available for comparison Procedure Note Zachary Bolden MD - 09/19/[address] [facility] [address] Test Date: 2021-09-17 Pat Name: ANA MARIA BOBO Department: 41 Room: [facility] Gender: Female Executive Associate: [facility] [place] 1945 Requested By: THANH BOSS Order Number: [id number] Reading MD: Zachary Bolden Measurements Intervals [place] Rate: 60 P: -40 NE: 236 QRS: -23 QRSD: 149 T: 76 QT: 429 QTc: 431 Interpretive Statements SINUS RHYTHM WITH FIRST DEGREE AV BLOCK LEFT BUNDLE BRANCH BLOCK CRITICAL ALERT ISSUED ON 09-17-2021 20:45:00 No previous ECG available for comparison us Thanh Boss ENTRY LEVEL PROGRAMMER ECG ORDERABLES Final Result [facility] RAD * TROPONIN, QUANT (09/17/2021 8:15 PM CDT) Pathologist [facility] TROPONIN I HIGH SENSITIVITY 16 <54 ng/L 09/18/2021 2:25 AM CDT [facility] Comment: HIGH DOSES OF BIOTIN, TROPONIN-SPECIFIC AUTOANTIBODIES, AND ANTIBODY THERAPY CONTAINING HAMA MAY INTERFERE WITH THIS TEST RESULT. CORRELATION TO CLINICAL HISTORY AND PRESENTATION RECOMMENDED. 09/17/2021 8:15 PM CDT Sarthak Chin MD,PHD LABORATORY Final Resu lt [facility] [address] [place] [address], [place] [phone] * LIPASE (09/17/2021 8:15 PM CDT) Pathologist [facility] LIPASE 122 73 - 393 UNITS/L 09/17/2021 8:48 PM CDT [facility] 09/17/2021 8:15 PM CDT Thanh Boss APRN LABORATORY Final Result Performing Organization Address City/[facility]/ZIP Co de Phone Number [facility] [address] [place] [address], [place] [phone] * (ABNORMAL) COMPREHENSIVE METABOLIC PANEL (09/17/2021 8:15 PM CDT) Pathologist [facility] GLUCOSE 118(H) 70 - 99 MG/DL 09/17/2021 8:48 PM CDT [facility] BUN 21(H) 7 - 18 MG/DL 09/17/2021 8:48 PM CDT [facility] CREATININE S/P/B 1.19(H) 0.55 - 1.02 MG/DL 09/17/2021 8:48 PM CDT [facility] SODIUM S/P/B 142 136 - 145 MMOL/L 09/17/2021 8:48 PM CDT [facility] POTASSIUM S/P/B 4.6 3.5 - 5.1 MMOL/L 09/17/2021 8:48 PM CDT [facility] CHLORIDE S/P/B 110(H) 100 - 108 MMOL/L 09/17/2021 8:48 PM CDT [facility] CO2 28.5 21 - 32 MMOL/L 09/17/2021 8:48 PM CDT [facility] CALCIUM S/P/B 10.0 8.5 - 10.1 MG/DL 09/17/2021 8:48 PM CDT [facility] BILIRUBIN TOTAL S/P/B 0.2 0.2 - 1.2 MG/DL 09/17/2021 8:48 PM CDT [facility] Comment: THIS ASSAY IS NOT RECOMMENDED FOR PATIENTS UNDERGOING TREATMENT WITH ELTROMBOPAG DUE TO THE POTENTIAL FOR FALSELY ELEVATED RESULTS. TOTAL PROTEIN S/P/B 6.9 6.4 - 8.2 G/DL 09/17/2021 8:48 PM CDT [facility] ALBUMIN S/P/B 3.2(L) 3.4 - 5.0 G/DL 09/17/2021 8:48 PM CDT [facility] AST 16 15 - 37 U/L 09/17/2021 8:48 PM CDT [facility] ALT 22 14 - 55 U/L 09/17/2021 8:48 PM CDT [facility] ALKALINE PHOSPHATASE S/P/B 62 50 - 136 U/L 09/17/2021 8:48 PM CDT [facility] ANION GAP 3.5(L) 5 - 15 MMOL/L 09/17/2021 8:48 PM CDT [facility] BUN CREATININE RATIO 17.6 6 - 26 09/17/2021 8:48 PM CDT [facility] A/G RATIO 0.9(L) 1.0 - 2.0 RATIO 09/17/2021 8:48 PM CDT [facility] GFR ESTIMATE 47(L) >90 ML/MIN/1.7 3 M2 09/17/2021 8:48 PM CDT [facility] Comment: NOTE: eGFR is not calculated for patients <18 years of age. This is an estimated GFR calculation using the new CKD EPI creatinine equation without race and so does not require a correction factor for race. This estimated GFR should not be used for calculating drug doses. 09/17/2021 8:15 PM CDT Thanh Boss APRN LABORATORY Final Result [facility] [address] [place] [address], [place] [phone] * (ABNORMAL) CBC W/DIFF AUTOMATED (09/17/2021 8:15 PM CDT) WBC 6.4 4.5 - 11.0 x10'3/uL 09/17/2021 8:28 PM CDT [facility] RBC 3.32(L) 4.20 - 5.40 x10'6/uL 09/17/2021 8:28 PM CDT [facility] HGB 10.9(L) 12.0 - 16.0 G/DL 09/17/2021 8:28 PM CDT [facility] HCT 34.5(L) 38.0 - 48.0 % 09/17/2021 8:28 PM CDT [facility] MCV 103.9(H) 81.0 - 99.0 FL 09/17/2021 8:28 PM CDT [facility] MCH 32.8(H) 27.0 - 31.0 PG 09/17/2021 8:28 PM CDT [facility] MCHC 31.6(L) 32.0 - 36.0 G/DL 09/17/2021 8:28 PM CDT [facility] RDW 12.2 11.5 - 14.5 % 09/17/2021 8:28 PM CDT [facility] PLT 208 130 - 400 x10'3/uL 09/17/2021 8:28 PM CDT [facility] MPV 12.3(H) 9.3 - 12.2 FL 09/17/2021 8:28 PM CDT [facility] DIFFERENTIAL TYPE AUTOMATED DIFFERENTIAL 09/17/2021 8:28 PM CDT [facility] NEUTROPHILS % 69.7 % 09/17/2021 8:28 PM CDT [facility] LYMPHOCYTES % 14.4 % 09/17/2021 8:28 PM CDT [facility] MONOCYTES % 12.9 % 09/17/2021 8:28 PM CDT [facility] EOSINOPHILS 1.9 % 09/17/2021 8:28 PM CDT [facility] BASOPHILS 0.8 % 09/17/2021 8:28 PM CDT [facility] IMMATURE GRANS % 0.3 % 09/18/19 8:28 PM CDT [facility] ABS. NEUTROPHILS TOTAL 4.45 1.80 - 7.70 x10'3/uL 09/17/2021 8:28 PM CDT [facility] ABS. LYMPHOCYTES 0.92(L) 1.00 - 4.80 x10'3/uL 09/17/2021 8:28 PM CDT [facility] ABS. MONOCYTES 0.82 0.24 - 0.86 x10'3/uL 09/17/2021 8:28 PM CDT [facility] ABS. EOSINOPHILS 0.12 0.04 - 0.36 x10'3/uL 09/17/2021 8:28 PM CDT [facility] ABS. BASOPHILS 0.05 0.01 - 0.08 x10'3/uL 09/17/2021 8:28 PM CDT [facility] ABS. IMMATURE GRANULOCYTES 0.02 0.00 - 0.49 x10'3/uL 09/17/2021 8:28 PM CDT [facility] 09/17/2021 8:15 PM CDT Thanh Boss ENTRY LEVEL PROGRAMMER LABORATORY Final Result [facility] [address] [place] [address], documented in this encounter Visit Diagnoses Diagnosis Supratherapeutic INR- Primary Abnormal coagulation profile Abdominal pain Abdominal pain, unspecified site documented in this encounter Administered Medications Inactive Administered Medications - up to 3 most recent administrations Medication Order MAR Action Action Date Dose Rate Site iopamidol (ISOVUE-370) 76 % injection 100 mL 100 mL, Intravenous, IMG once as needed, Contrast, 1 dose, Starting on Thu09/17/21 at 2117, Until Thu09/17/21 at 2118 Given 09/17/2021 9:18 PM CDT 100 mLs lirapssfv-hujamyua-vjaruzfaued (MYLANTA MAXIMUM STRENGTH) 9050-8052-161 mg/30mL suspension 30 mL, Oral, Once, 1 dose, On Thu09/17/21 at 2345, Shake Well Given 09/17/2021 11:55 PM CDT 30 mLs documented in this encounter Active and Recently Administered Medications Times are shown in CDT. Scheduled Medication Order 09/16/2021 09/17/2021 09/18/2021 wbnkkxtnl-tpihllqy-hbgdqyeflhy (MYLANTA MAXIMUM STRENGTH) 9125-9856-860 mg/30mL suspension (COMPLETED) 30 mL, Oral, Once, 1 dose, On Thu09/17/21 at 2345, Shake Well 2355 (Given - Provider: Maninder Graham, RN) ondansetron (ZOFRAN) injection 4 mg 4 mg, Intravenous, Once, 1 dose, On Thu09/17/21 at 2015, IV push over 2-5 minutes. 2014 (Canceled Entry - Provi delia: Automatic Discharge Provider - Comment: Automatically canceled at discontinue of medication order) PRN Medication Order 09/16/2021 09/17/2021 09/18/2021 iopamidol (ISOVUE-370) 76 % injection 100 mL (COMPLETED) 100 mL, Intravenous, IMG once as needed, Contrast, 1 dose, Starting on Thu09/17/21 at 2117, Until Thu09/17/21 at 2117 2118 (Given - Provider: Fay Cantu, RTR) documented in this encounter Additional Health Concerns Assessment Noted Time PHQ-9 Depression Total Score: 0 05/25/19 22 9:23 AM CDT documented as of this encounter Care Teams Screw Machine Setter Relationship Specialty Start Date End Date Sanjeev Webster DO [address] [place] [phone] PCP - General FAMILY PRACTICE 09/25/20 Dianne Johnson, RN [address] [place] [address] Complaint Manager (Ambulatory) REGISTERED NURSE 08/14/20 documented as of this encounter
--- OUTSIDE RECORDS SUMMARY | 2024-03-15 01:06 | XMS_ITS | Encounter Summary ---
Author Organization [facility] Address [address] [place] [address]. [place] [address] [place] [address] Care Team Providers Care Cigar Tobacco Rehandler Name Role Phone Dianne Johnson RN Unavailable [phone] Sanjeev Webster DO Primary Care Provider + Reason for Visit * Reason Comments Lab (SCAN) Image (SCAN) Encounter Details Date Type Department Care Team ([facility] Contact Info) Description 10/02/2021 Scan HEALTH INFO SRVCS Scanned, Documents Lab (SCAN); Image (SCAN) Social History Tobacco Use Types [...] Upcoming Encounters Date Type Department Care Team ([facility] Contact Info) Description 04/14/2024 2:00 PM TUBE REBUILDER Office Visit [facility] Medical [facility] Multispecialty [facility] [address] [facility], [address] [place] [phone] Julio Pulido MD [address] [place] [address] documented as of this encounter Goals Goal Patient Goal Type Associated Problems Recent Progress Patient-Stated? Author Health - patient able to perform ADLs independently General On track(2023 9:49 AM CDT) Dianne Corona RN Note: 12/17/23: Patient stated she is independent with ASL's. Establish Plan for Symptom Monitoring-CHF General On track(2023 11:36 AM TUBE REBUILDER) Dianne Corona RN Note: Patient will [...] Symptom Monitoring-COPD General On track(2023 11:36 AM TUBE REBUILDER) Dianne Corona RN Note: Patient will [...] Symptom Monitoring-DM General On track(2023 4:33 PM TUBE REBUILDER) No Johnson, Dianne R, RN Note: Patient [...] Symptom Monitoring-HTN General On track(2023 4:33 PM TUBE REBUILDER) Dianne oCrona RN Note: Patient will monitor B/P several [...] Associated Diagnosis Comments OUTSIDE PT/INR (SCAN ORDER) 10/02/2021 OUTSIDE LAB (SCAN ORDER) 10/02/2021 OUTSIDE LAB (SCAN ORDER) 10/02/2021 OUTSIDE LAB (SCAN ORDER) 10/02/2021 IMAGE GENERIC 10/02/2021 documented in this encounter Results * OUTSIDE LAB (SCAN) (10/02/2021) 10/02/2021 Narrative 10/02/2021 Ordered by an unspecified provider. us Documents Scanned SCANNING Final Result * OUTSIDE LAB (SCAN) (10/02/2021) 10/02/2021 Narrative 10/02/2021 Ordered by an unspecified provider. us Documents Scanned SCANNING Final Result * OUTSIDE PT/INR (SCAN) (10/02/2021) 10/02/2021 Narrative 10/02/2021 Ordered by an unspecified provider. us Documents Scanned SCANNING Final Result * OUTSIDE LAB (SCAN) (10/02/2021) 10/02/2021 Narrative 10/02/2021 Ordered by an unspecified provider. us Documents Scanned SCANNING Final Result * IMAGE GENERIC (10/02/2021) Anatomical Region Laterality Modality Other 10/02/2021 Narrative 10/02/2021 Ordered by an unspecified provider. us Documents Scanned SCANNING Final Result documented in this encounter Visit Diagnoses Not on filedocumented in this encounter Additional Health Concerns Assessment Noted Time PHQ-9 Depression Total Score: 0 05/25/19 22 9:23 AM CDT documented as of this encounter Care Teams Cigar Tobacco Rehandler Relationship Specialty Start Date End Date Sanjeev Webster DO [address] [place] [address] PCP - General FAMILY PRACTICE 09/25/20 Dianne Johnson, RN [address] [place] [address] Physical Testing Supervisor (Ambulatory) REGISTERED NURSE 08/14/20 documented as of this encounter
--- OUTSIDE RECORDS SUMMARY | 2024-03-15 01:06 | XMS_ITS | Encounter Summary ---
Author Organization [facility] Address [address] [place] [address]. [place] [address] [place] [address] Care Team Providers Care Fitness Studies Teacher Name Role Phone Dianne Johnson RN Unavailable [phone] Sanjeev Webster DO Primary Care Provider + Encounter Details Date Type Department Care Team (Latest Contact Info) Description 10/02/2021 Travel Social History Tobacco Use Types Packs/Day [...] st Contact Info) Description 04/14/2024 2:00 PM HANDSTITCHING MACHINE COLLAR FELLER Office Visit [facility] Medical Group Multispecialty Care - [address], [address] [place] [address] Julio Pulido MD [address] [place] [address] documented as of this encounter Goals Goal Patient Goal Type Associated Problems Recent Progress Patient-Stated? Author Health - patient able to perform ADLs independently General On track(2023 9:49 AM CDT) Dianne Corona RN Note: 12/17/23: Patient stated she is independent with ASL's. Establish Plan for Symptom Monitoring-CHF General On track(2023 11:36 AM HANDSTITCHING MACHINE COLLAR FELLER) Dianne Corona RN Note: Patient will recognize [...] Symptom Monitoring-COPD General On track(2023 11:36 AM HANDSTITCHING MACHINE COLLAR FELLER) Dianne Corona, RN Note: Patient will recognize [...] Symptom Monitoring-DM General On track(2023 4:33 PM HANDSTITCHING MACHINE COLLAR FELLER) Dianne Corona RN Note: Patient will manage [...] Symptom Monitoring-HTN General On track(2023 4:33 PM HANDSTITCHING MACHINE COLLAR FELLER) Dianne Corona RN Note: Patient will monitor [...] documented as of this encounter Care Teams Fitness Studies Teacher Relationship Specialty Start Date End Date Sanjeev Webster DO [address] [place] [id number] PCP - General FAMILY PRACTICE 09/25/20 Dianne Johnson RN [address] [place] [address] Ladle Watcher (Ambulatory) REGISTERED NURSE 08/14/20 documented as of this encounter
--- OUTSIDE RECORDS SUMMARY | 2024-03-15 01:06 | XMS_ITS | Encounter Summary ---
Author Organization [facility] Address [facility] [facility]. [place], [place] [phone] [place] [address] Care Team Providers Care Home Health Registered Nurse Name Role Phone Dianne Johnson RN Unavailable [phone] Sanjeev Webster DO Primary Care Provider + Reason for Visit * Reason Comments Anticoagulation Encounter Details Date Type Department Care Team (Late st Contact Info) Description 10/08/2021 1:00 PM CDT Allied Health/Nurse Visit [facility] Medical [facility] Family & Internal Medicine [address] [phone] Sanjeev Webster DO [address] [place] [address] Anticoagulation Social History Tobacco Use Types [...] st Contact Info) Description 04/14/2024 2:00 PM POLICY LOAN CALCULATOR Office Visit [facility] Medical Group Multispecialty Care - [facility] 3 [facility], [address] [place] [address] Julio Pulido MD [address] [place] [address] documented as of this encounter Goals Goal Patient Goal Type Associated Problems Recent Progress Patient-Stated? Author Health - patient able to perform ADLs independently General On track(2023 9:49 AM CDT) Dianne Corona RN Note: 12/17/23: Patient stated she is independent with ASL's. Establish Plan for Symptom Monitoring-CHF General On track(2023 11:36 AM POLICY LOAN CALCULATOR) Dianne Corona, RN Note: Patient will recognize [...] Symptom Monitoring-COPD General On track(2023 11:36 AM POLICY LOAN CALCULATOR) Dianne Corona, RN Note: Patient will recognize [...] Symptom Monitoring-DM General On track(2023 4:33 PM POLICY LOAN CALCULATOR) Dianne Corona, RN Note: Patient will manage [...] Symptom Monitoring-HTN General On track(2023 4:33 PM POLICY LOAN CALCULATOR) Dianne Corona, RN Note: Patient will monitor [...] Associated Diagnosis Comments PROTHROMBIN TIME, FINGERSTICK Routine 10/08/2021 Encounter for long-term (current) drug use Paroxysmal atrial flutter ([facility]) COLLECT.CAPILLARY (FNGR,HEEL,EAR) Routine 10/08/2021 Encounter for long-term (current) drug use documented in this encounter Results * COLLECT.CAPILLARY (FNGR,HEEL,EAR) (10/08/2021) Sanjeev Webster DO PROCEDURES-UNRESULTED Fi nal Result * PROTIME/INR, FINGERSTICK (10/08/2021) INR WHOLE BLOOD 2.20 MG-[facility] 10/08/2021 us Sanjeev Webster DO LABORATORY Final Re sult -[facility] [address] [place] [address], documented in this encounter Visit Diagnoses Diagnosis Encounter for long-term (current) drug use- Primary Encounter for long-term (current) use of other medications Paroxysmal atrial flutter (CMS/HCC HHS/HCC) Atrial flutter documented in this encounter Additional Health Concerns Assessment Noted Time PHQ-9 Depression Total Score: 0 05/25/19 22 9:23 AM CDT documented as of this encounter Care Teams Home Health Registered Nurse Relationship Specialty Start Date End Date Sanjeev Webster DO [address] [place] [phone] PCP - General FAMILY PRACTICE 09/25/20 Dianne Johnson, RN [address] [place] [address] [employer] Agent (Ambulatory) REGISTERED NURSE 08/14/20 documented as of this encounter
--- OUTSIDE RECORDS SUMMARY | 2024-03-15 01:07 | XMS_ITS | Encounter Summary ---
Author Organization [facility] Address [facility] [place] [address] [place] [address] Care Team Providers Care Pheresis Specialist Name Role Phone Dianne Johnson RN Unavailable [phone] Sanjeev Webster DO Primary Care Provider + Reason for Visit * Reason Onset Date Comments Results 08/30/2021 Encounter Details Date Type Department Care Team (Late st Contact Info) Description 08/30/2021 Telephone [facility] Medical Group Family & Internal Medicine [address] [phone] Sanjeev Webster DO [facility] [place] [address] Results Social History Tobacco Use [...] suspected to have Coronavirus/COVID-19? No / Unsure 09/02/2021 9:18 AM CDT documented as of this encounter Progress Notes * Trixie Jose MA - 09/02/2021 12:50 PM CDT Informed Radha of above recommendations. Also left a detailed message for her daughter in law Izzy Martinez. 09/02/21 tn * Sanjeev Webster DO - 09/02/2021 9:41 AM CDT Change to warfarin 6 mg every day except Thursday and Thursday. Also recommend starting metoprolol succinate 25 mg, one tab daily. Keep scheduled follow-up. Recheck PT/INR in 1 week. Also please let pt know that we have ordered a CT of her head to follow-up on her aneurysm. It is ordered for [facility]; they will call to schedule this with patient. * Trixie Jose MA - 09/02/2021 8:[address] Roes office called back and states patient should continue the amiodarone. Ok to start a betablocker. Patient should monitor her heart rate and report back to pcp within 1 week. Keep appt withDr Ordoñez 09/12/21 to discuss this further. * Scarlett Guerrero MA - 08/30/2021 3:35 PM CDT Patient notified and v/u 08/30/21 * Sanjeev Webster DO - 08/30/2021 3:28 PM CDT Skip warfarin tonight. Take 6 mg on Sat and Sun. Check fingerstick PT/INR on Thursday and we'll give further instruction from there. * Scarlett Guerrero MA - 08/30/2021 2:16 PM CDT Patient states her last dose of warfarin was last night . She takes 9mg m-- and 6mg the rest of the week. * Scarlett Guerrero MA - 08/30/2021 2:05 PM CDT lmtc on patients vm ,also called shannon her other contact and no answer and vm full so could not leave a message. I also left vm on daughter in law Izzy and granddaughter Deshaun mistry . 08/30/21 * Scarlett Guerrero MA - 08/30/2021 2:01 PM CDT ----- Message from Sanjeev Webster DO sent at 08/30/2021 7:58 AM CDT ----- Pt's thyroid function shows hyperthyroidism. Will send this to pt's endocrinology team. Please reach out to Dr. Ordoñez's office (pt's advanced developer) as pt is on amiodarone therapy at this time. I reached out to pt yesterday about stopping today's dose of warfarin. What dose is pt currently taking ofwarfarin. Pt is very mildly anemic as well; we will check other studies regarding this in near future. Will await response to these queries documented in this encounter Plan of Treatment Upcoming Encounters Date Type Department Care Team (Late st Contact Info) Description 04/14/2024 2:00 PM RISK SPECIALIST Office Visit [facility] Medical Group Multispecialty Care - [facility] [address] [facility], [address] [place] [phone] Julio Pulido MD [address] [place] [address] documented as of this encounter Goals Goal Patient Goal Type Associated Problems Recent Progress Patient-Stated? Author Health - patient able to perform ADLs independently General On track(2023 9:49 AM CDT) Dianne Corona RN Note: 12/17/23: Patient stated she is independent with ASL's. Establish Plan for Symptom Monitoring-CHF General On track(2023 11:36 AM RISK SPECIALIST) Dianne Corona, RN Note: Patient will [...] Symptom Monitoring-COPD General On track(2023 11:36 AM RISK SPECIALIST) Dianne Corona, RN Note: Patient will [...] Symptom Monitoring-DM General On track(2023 4:33 PM RISK SPECIALIST) Dianne Corona RN Note: Patient will [...] Symptom Monitoring-HTN General On track(2023 4:33 PM RISK SPECIALIST) Dianne Corona RN Note: Patient will [...] Diagnosis Atrial fibrillation with rapid ventricular response ([facility])- Primary Atrial fibrillation Diastolic heart failure ([facility]) Unspecified diastolic heart failure documented in this encounter Additional Health Concerns Assessment Noted Time PHQ-9 Depression Total Score: 0 05/25/19 22 9:23 AM CDT documented as of this encounter Care Teams Pheresis Specialist Relationship Specialty Start Date End Date Sanjeev Webster DO [address] [place] [phone] PCP - General FAMILY PRACTICE 09/25/20 Dianne Johnson RN [address] [place] [address] Wireless Sales Representative (Ambulatory) REGISTERED NURSE 08/14/20 documented as of this encounter
--- OUTSIDE RECORDS SUMMARY | 2024-03-15 01:07 | XMS_ITS | Encounter Summary ---
Author Organization [facility] Address [facility] [place] [address] [place] [address] Care Team Providers Care Material Handling Supervisor Name Role Phone Casey Johnson RN Unavailable [phone] Sanjeev Webster DO Primary Care Provider + Reason for Visit * Reason Onset Date Comments Care Management 08/12/2021 Encounter Details Date Type Department Care Team (Late st Contact Info) Description 08/12/2021 Patient Outreach [facility] Medical Group Family & Internal Medicine [address] [address] Casey Johnson, RN [address] [place] [address] Care Management Social History Tobacco [...] suspected to have Coronavirus/COVID-19? No / Unsure 08/08/2021 10:58 AM CDT documented as of this encounter Progress Notes * Casey Johnson RN - 08/12/2021 9:54 AM CDT Chronic Care Management: Patient concerns or urgent matters that need addressed: Rpzaeutn-tv-hpx; Izzy called to find out if patient should begin taking Atorvastatin again or not. It was held on 07/31/21 due to leg cramps. She's been off of it for 12 days now. Informed Izzy that CC will reach out to patient to find out if she is still having issues. Izzy stated to call her back at [phone] and leave a detailed message if she doesn't answer. She is on break right now at work. 08/12/21: Called Izzy back and left a detailed voice mail to not give patient Atorvastatin in her pill senior planner since she is no longer having leg cramps/calve pain. CC will send a message to to find out recommendations. Patient Status: Contacted patient to find out if she is having calve pain/cramps at night. Patient stated she is nolonger having issues. Stated it's wonderful. She is on her way to get an oil change. Informed patient that CC will call her back later on to set up an appointment with . Patient verbalizes understanding. Patient had INR done on 07/30/21 for (Cardiology office). is following. Scheduled patient appointment with on 09/13/21 at 11:20 am. Patient needs to be checking BG as needed. recommends checking fasting 2-4 times a week just so she is aware of her general trends. 08/12/21: Contacted patient about the above appointment with and she wrote the appointment down. Stated she got an INR for 's office today. Encouraged patient to check BG fasting 2-4 times per week and write down date and numbers. Check weight every morning when she gets out of bed and after using restroom. Write down date and readings. Emphasized the importance of contacting CC with the onset of worsening sob, edema, fatigue or cough. Patient verbalizes understanding. Educated again on COPD s/s and when to contact CC. Patient stated she received Prolia injections and will get another one in 6 months. Patient stated she has a small spot on brain and she believes was wanting to keep track of it. She wants to know if she is supposed to have further testing done. Message sent to in separate message. Plan of Care: lead clinical research coordinator will continue to follow up [...] Denies worseinng sob, swelling, fatigue or cough. ??? Establish Plan for Symptom Monitoring-COPD On [...] CC. Unless severe and needs emergent treatment. ??? Establish Plan for Symptom Monitoring-DM Not [...] her BG monitor and will begin checking. ??? Establish Plan for Symptom Monitoring-HTN On [...] good at appointment yesterday. CC reviewedreading in Jade [employer] from yesterday. B/P: 132/70 P: 65. 07/29/21: Patient is not taking B/P at this time. Stated her zcomczof-ac-cwf sets up her pill senior planner and she is taking medications as directed. Reports alarm will go off at 8:00 am and 8:00 PM reminding her to take her medications. 08/12/21: Patient taking medication as directed. ??? Health - patient able to perform [...] dishes her back hurts. Reports Tylenol or [place] helps a little. Message sent to Bebe BHATTI) to find out the status on farmworker machine. 10/23/20: Independent with ADL's. 12/10/20: Patient having issues sweeping etc since right hand fx. Stated she will contact [employer] out if another farmworker machine will be helping her. Stated she prefers to wait until after she comes back from visiting her son in [place]. 12/27/20: Patient stated she is having issues getting a farmworker machine due to [employer] being short staffed. Stated she plans on calling them back today to find out status. Stated her pastors daughter put in application to help her about 1 1/2 months ago but she hasn't received a call. Stated she will call them today. 01/11/21: best worker will start on Thursday and help [...] Patient stated she is getting a new farmworker machine next week to help clean her home. Denies any recent falls. 04/10/21: Patient's jrfegfga-th-eck is filling mediplanner for the patient. 04/29/21: Patient stated the farmworker machine did not show up again. Gave patient number to [employer]. She wrote it down and will call for assistance. 05/24/21: Choreworker has not been coming and patient unsure why. Patient has number to call to check on status, but just hasn't done that yet. 07/29/21: Yhvjdwtz-ot-gef fills pill senior planner and has an alarm on it to take morning and evening. Shecooks her own meals and currently doesn't have a farmworker machine. Stated she doesn't need one right now. 08/12/21: Patient independent with ADL's. Nnylpmoh-zl-xnm fixes her pill senior planner and will be doing this today. Upcoming Visit Appointments: Future Appointments Date Time Provider Department Center 09/13/2021 11:20 AM Sanjeev Webster DO [facility] 10/03/2021 1:40 PM Panda Moreno MD [facility] 10/29/2021 8:00 AM MD BYRON Cazares MG [facility] 02/17/2022 11:00 AM ALEX INFUSION RM 6 [facility] ALEX Quality care gaps: Health Maintenance Topic Date Due ??? Lipid Panel Never done ??? Diabetes: Retinopathy Eye Exam Never done ??? Hepatitis C Never done ??? Medicare Wellness Visit Never done ??? Zoster Vaccines (2 of 3) 02/19/2016 ??? COVID-19 Vaccine (4 - Booster for Pfizer series) 06/24/2021 ??? Hemoglobin A1C 11/24/2021 ??? DTaP, Tdap and Td Vaccines (3 - Td or Tdap) 09/05/2030 ??? DEXA SCAN (GENERAL) Completed ??? Pneumococcal Vaccine: 65+ Years Completed ??? Meningococcal Vaccine Aged Out Problem List: Patient Active Problem List Diagnosis ??? Abnormal stress test ??? Bradycardia ??? Chronic anticoagulation ??? Coronary artery disease involving chevak coronary artery of chevak heart without angina pectoris ??? Diabetes mellitus [...] bone fracture ??? Mitral valve disorder ??? Morbid obesity (CMS/HCC) ??? Purpura (CMS/HCC) ??? Peripheral arterial occlusive [...] Take 100 mg by mouth daily. ??? atorvastatin 10 MG tablet Take 1 tablet (10 mg total) by mouth daily. (Patient not taking: Reported on 08/12/2021) 90 tablet 1 ??? azelastine (AZELASTINE) 0.1 % nasal spray [...] Indications: Chronic Pain Do not take with alprazolam 30 tablet 0 ??? Lancets Misc Test daily as directed 100 each 1 ??? lidocaine 5 % Apply pain patch to affected area. Change after 12 hours. 6 patch 0 ??? LISINOPRIL 40 MG tablet Take 1 tablet by mouth once daily 90 tablet 1 ??? OMEPRAZOLE 20 MG capsule Take 1 capsule by mouth once daily 90 capsule 0 ??? oxymetazoline 0.05 % nasal spray Not to exceed 3 days. May use for 3 days then refrain for 3 days and repeat as needed. 20 mL 0 ??? VENLAFAXINE XR 150 MG 24 hr capsule Take 1 capsule by mouth once daily 90 capsule 0 ??? warfarin 1 MG tablet Take 3 tablets (3 mg total) by mouth see administration instructions. [id number] tablet on , fridays and mondays 270 tablet 1 ??? warfarin 6 MG tablet Take 1 tablet (6 mg total) by mouth daily. (Patient taking differently: 9 mg on Mondays and 6 mg the other days) 90 tablet 1 No current facility-administered medications for this visit. Facility-Administered Medications Ordered in Other Visits Medication Dose Route Frequency Provider Last Rate Last Admin ??? denosumab (PROLIA) injection 60 mg 60 mg Subcutaneous Once Panda Moreno MD Chronic Care Management- Time Spent with Patient Time spent with patient (minutes): 20 (Comment: Talking to patient x 2 today and Izzy (kjqmwumd-nz-jrt) total.) Time spent performing chart review (minutes): 8 Total time (minutes): 28 CASEY JOHNSON RN I reviewed the patient's status and education provided by CASEY JOHNSON RN. I agree with the findings and recommendations made. Cosigned by Sanjeev Webster DO at 08/25/2021 11:50 AM CDT documented in this encounter Plan of Treatment Upcoming Encounters Date Type Department Care Team (Late st Contact Info) Description 04/14/2024 2:00 PM ANALOG CIRCUIT DESIGNER Office Visit [facility] Multispecialty Care - [facility] [address] [facility], [address] [place] [phone] Julio Pulido MD [address] [place] [address] documented as of this encounter Goals Goal Patient Goal Type Associated Problems Recent Progress Patient-Stated? Author Health - patient able to perform ADLs independently General On track(2023 9:49 AM CDT) Casey Corona RN Note: 12/17/23: Patient stated she is independent with ASL's. Establish Plan for Symptom Monitoring-CHF General On track(2023 11:36 AM ANALOG CIRCUIT DESIGNER) Casey Corona RN Note: Patient will [...] Symptom Monitoring-COPD General On track(2023 11:36 AM ANALOG CIRCUIT DESIGNER) Casey Corona RN Note: Patient will [...] Symptom Monitoring-DM General On track(2023 4:33 PM ANALOG CIRCUIT DESIGNER) Casey Corona RN Note: Patient will [...] Symptom Monitoring-HTN General On track(2023 4:33 PM ANALOG CIRCUIT DESIGNER) Casey Corona, RN Note: Patient will monitor [...] Chronic obstructive pulmonary disease, unspecified COPD type ([facility]) Diabetes mellitus ([facility]) Type II or unspecified type diabetes mellitus without mention of complication, not stated as uncontrolled Diastolic heart failure ([facility]) Unspecified diastolic heart failure documented in this encounter Additional Health Concerns Assessment Noted Time PHQ-9 Depression Total Score: 0 05/25/19 22 9:23 AM CDT documented as of this encounter Care Teams Material Handling Supervisor Relationship Specialty Start Date End Date Sanjeev Webster DO [address] [place] [address] PCP - General FAMILY PRACTICE 09/25/20 Casey Johnson, RN [address] [place] [address] Inspector Raw Quartz (Ambulatory) REGISTERED NURSE 08/14/20 documented as of this encounter
--- OUTSIDE RECORDS SUMMARY | 2024-03-15 01:07 | XMS_ITS | Encounter Summary ---
Author Organization [facility] Address [address] [place] [address]. [place], [place] [address] [place] [address] Care Team Providers Care Sleeve Machine Tender Name Role Phone Dianne Johnson RN Unavailable [phone] Sanjeev Webster DO Primary Care Provider + Reason for Visit * Reason Onset Date Comments TCM 07/31/2021 Follow up call Encounter Details Date Type Department Care Team (Late st Contact Info) Description 07/31/2021 Telephone [facility] Medical Group Family & Internal Medicine [id number] [place] [address] Sanjeev Webster DO [address] [place] [address] [facility] (Follow up call) Social History Tobacco Use Types Packs/Day Years [...] suspected to have Coronavirus/COVID-19? No / Unsure 07/30/2021 10:31 AM CDT documented as of this encounter Progress Notes * Natalee Brown RN - 07/31/2021 3:21 PM CDT Attempted to call the patient, was unable to reach them at this time. Left a message requesting a call back. LL-07/31/21 * Natalee Brown RN - 07/31/2021 3:21 PM CDT 1. OK to do trial of stopping this medicine to see if this helps. We will be starting a different statin if it is found to be the issue. 2. She needs to be able to check it as needed. I'd recommend checking fasting 2- 4 times a week justso she is aware of her general trends. 3. Pt was obtaining these through her parole hearing officer previously. She can have either of us follow it,but it is imperative she have this checked as scheduled. She needs to do this. She is also needing to schedule a f/u with myself; she missed her la st appointment if I recall correctly. ----- Message ----- From: Scarlett Guerrero MA Sent: 07/29/2021 4:33 PM CDT To: Sanjeev Webster DO ----- Message from Scarlett Guerrero MA sent at 07/29/2021 4:33 PM CDT ----- ----- Message from Dianne Johnson RN sent at 07/29/2021 3:45 PM CDT ----- Please address the followin. Patient c/o muscle cramps in bilateral calves at night on and off x 3 weeks to a month now. Of note patient is taking Atorvastatin. Requesting recommendations. 2. Patient diabetic. A1C 6.5 on 05/24/21. Not on any DM medications currently. How often should she check her BG? She is currently not checking. 3. Last INR: 1.5 on 05/24/21. Patient unaware how much Warfarin she is taking. Jotpqpeu-wj-dfp takescare of pill community planner. Informed patient she needs an INR checked. Patient stated she will try and get protime done today. Left message for Izzy; mrqarjcw-[id number] (on HIPPA) to return phone call to confirm how much Warfarin patient is taking. Izzy called back and stated patient is taking Warfarin 6 mg every day but Thursday she takes 9 mg. She will remind patient to get Protime done. Thank you! documented in this encounter Plan of Treatment Upcoming Encounters Date Type Department Care Team (Late st Contact Info) Description 04/14/2024 2:00 PM SHOE STAINER Office Visit [facility] Medical Group Multispecialty Care - [facility] [address] [facility], [address] [place] [address] Julio Pulido MD [address] [place] [address] documented as of this encounter Goals Goal Patient Goal Type Associated Problems Recent Progress Patient-Stated? Author Health - patient able to perform ADLs independently General On track(2023 9:49 AM CDT) Dianne Corona, RN Note: 12/17/23: Patient stated she is independent with ASL's. Establish Plan for Symptom Monitoring-CHF General On track(2023 11:36 AM SHOE STAINER) Dianne Corona, RN Note: Patient will recognize [...] Monitoring-COPD General On track(2023 11:36 AM SHOE STAINER) Dianne Corona RN Note: Patient will recognize [...] Monitoring-DM General On track(2023 4:33 PM SHOE STAINER) Dianne Corona RN Note: Patient will manage [...] Monitoring-HTN General On track(2023 4:33 PM SHOE STAINER) Dianne Corona, RN Note: Patient will monitor [...] documented as of this encounter Care Teams Sleeve Machine Tender Relationship Specialty Start Date End Date Luchtefeld, Sanjeev P, DO [address] [place] [address] PCP - General FAMILY PRACTICE 09/25/20 Dianne Johnson, RN [address] [place] [address] Director Of Land Acquisition (Ambulatory) REGISTERED NURSE 08/14/20 documented as of this encounter
--- OUTSIDE RECORDS SUMMARY | 2024-03-15 01:07 | XMS_ITS | Encounter Summary ---
Author Organization [facility] Address [address] [place] [address]. [place] [address] [place] [address] Care Team Providers Care Siphon Operator Name Role Phone Dianne Johnson RN Unavailable [phone] Sanjeev Webster DO Primary Care Provider + Encounter Details Date Type Department Care Team (Late Contact Info) Description 08/30/2021 Orders Only [facility] Medical Group Diabetes and Endocrinology - [place] [address] [facility] [address] [place], [place] [address] Panda Moreno MD Social History Tobacco Use [...] suspected to have Coronavirus/COVID-19? No / Unsure 08/29/2021 10:34 AM CDT documented as of this encounter Plan of Treatment Upcoming Encounters Date Type Department Care Team (Late Contact Info) Description 04/14/2024 2:00 PM OBJECTS CONSERVATOR Office Visit [facility] Multispecialty Care - [facility] 3 [facility], [address] [place] [address] Julio Pulido MD 3 [place] [address] documented as of this encounter Goals Goal Patient Goal Type Associated Problems Recent Progress Patient-Stated? Author Health - patient able to perform ADLs independently General On track(2023 9:49 AM CDT) Dianne Corona RN Note: 12/17/23: Patient stated she is independent with ASL's. Establish Plan for Symptom Monitoring-CHF General On track(2023 11:36 AM OBJECTS CONSERVATOR) Dianne Corona RN Note: Patient will recognize [...] Symptom Monitoring-COPD General On track(2023 11:36 AM OBJECTS CONSERVATOR) Dianne Corona RN Note: Patient will recognize [...] Symptom Monitoring-DM General On track(2023 4:33 PM OBJECTS CONSERVATOR) Dianne Corona RN Note: Patient will manage [...] Symptom Monitoring-HTN General On track(2023 4:33 PM OBJECTS CONSERVATOR) Dianne Corona RN Note: Patient will monitor [...] documented as of this encounter Care Teams Siphon Operator Relationship Specialty Start Date End Date Sanjeev Webster DO [address] [place] [address] PCP - General FAMILY PRACTICE 09/25/20 Dianne Johnson, RN [address] [place] [address] Music Copyist (Ambulatory) REGISTERED NURSE 08/14/20 documented as of this encounter
--- OUTSIDE RECORDS SUMMARY | 2024-03-15 01:07 | XMS_ITS | Encounter Summary ---
Author Organization [facility] Address [address] [place] [address]. [place] [address] [place] [address] Care Team Providers Care Design Coordinator Name Role Phone Dianne Johnson RN Unavailable [phone] Sanjeev Webster DO Primary Care Provider + Encounter Details Date Type Department Care Team (Latest Contact Info) Description 08/08/2021 Travel Social History Tobacco Use Types Packs/Day [...] Contact Info) Description 04/14/2024 2:00 PM SALES AND MARKETING ANALYST Office Visit [facility] Medical Group Multispecialty Care - [address], [address] [place] [address] Julio Pulido MD 3 [place] [address] documented as of this encounter Goals Goal Patient Goal Type Associated Problems Recent Progress Patient-Stated? Author Health - patient able to perform ADLs independently General On track(2023 9:49 AM CDT) Dianne Corona RN Note: 12/17/23: Patient stated she is independent with ASL's. Establish Plan for Symptom Monitoring-CHF General On track(2023 11:36 AM SALES AND MARKETING ANALYST) Dianne Corona RN Note: Patient will [...] Monitoring-COPD General On track(2023 11:36 AM SALES AND MARKETING ANALYST) Dianne Corona, RN Note: Patient will [...] Monitoring-DM General On track(2023 4:33 PM SALES AND MARKETING ANALYST) Dianne Corona RN Note: Patient will [...] Monitoring-HTN General On track(2023 4:33 PM SALES AND MARKETING ANALYST) Dianne Corona RN Note: Patient will [...] documented as of this encounter Care Teams Design Coordinator Relationship Specialty Start Date End Date Sanjeev Webster DO [address] [place] [address] PCP - General FAMILY PRACTICE 09/25/20 Dianne Johnson RN [address] [place] [address] Mammography Supervisor (Ambulatory) REGISTERED NURSE 08/14/20 documented as of this encounter
--- OUTSIDE RECORDS SUMMARY | 2024-03-15 01:07 | XMS_ITS | Encounter Summary ---
Author Organization [facility] Address [address] [place] [address]. [place] [address] [place] [address] Care Team Providers Care Needle Valve Operator Name Role Phone Dianne Johnson RN Unavailable [phone] Sanjeev eWbster DO Primary Care Provider + Encounter Details Date Type Department Care Team (Latest Contact Info) Description 07/30/2021 Travel Social History Tobacco Use Types Packs/Day [...] st Contact Info) Description 04/14/2024 2:00 PM CASINO FLOOR SUPERVISOR Office Visit [facility] Medical Group Multispecialty Care - [address], [address] [place] [address] Julio Pulido MD [address] [place] [address] documented as of this encounter Goals Goal Patient Goal Type Associated Problems Recent Progress Patient-Stated? Author Health - patient able to perform ADLs independently General On track(2023 9:49 AM CDT) Dianne Corona RN Note: 12/17/23: Patient stated she is independent with ASL's. Establish Plan for Symptom Monitoring-CHF General On track(2023 11:36 AM CASINO FLOOR SUPERVISOR) Dianne Corona RN Note: Patient will [...] Symptom Monitoring-COPD General On track(2023 11:36 AM CASINO FLOOR SUPERVISOR) Dianne Corona, RN Note: Patient will [...] Symptom Monitoring-DM General On track(2023 4:33 PM CASINO FLOOR SUPERVISOR) Dianne Corona RN Note: Patient will [...] Symptom Monitoring-HTN General On track(2023 4:33 PM CASINO FLOOR SUPERVISOR) Dianne Corona RN Note: Patient will [...] as of this encounter Care Teams Needle Valve Operator Relationship Specialty Start Date End Date Sanjeev Webster DO [address] [place] [address] PCP - General FAMILY PRACTICE 09/25/20 Dianne Johnson RN [address] [place] [address] Regional Truck Driver (Ambulatory) REGISTERED NURSE 08/14/20 documented as of this encounter
--- OUTSIDE RECORDS SUMMARY | 2024-03-15 01:07 | XMS_ITS | Encounter Summary ---
Author Organization [facility] Address [address] [place] [address]. [place] [address] [place] [address] Care Team Providers Care Supervisor Paper Testing Name Role Phone Dianne Johnson RN Unavailable [phone] Sanjeev Webster DO Primary Care Provider + Encounter Details Date Type Department Care Team (Late st Contact Info) Description 07/16/2021 Orders Only [facility] Medical Group Diabetes and Endocrinology - [place] [address] [facility] [facility] [address] [place], [place] [address] Panda Moreno MD Social History Tobacco Use [...] suspected to have Coronavirus/COVID-19? No / Unsure 07/15/2021 11:32 AM CDT documented as of this encounter Plan of Treatment Upcoming Encounters Date Type Department Care Team (Late Contact Info) Description 04/14/2024 2:00 PM RAIL TRACK MAINTAINER Office Visit [facility] Mult[facility]pecialty Care - [facility] [address] [facility], [address] [place] [address] Julio Pulido MD [address] [place] [address] documented as of this encounter Goals Goal Patient Goal Type Associated Problems Recent Progress Patient-Stated? Author Health - patient able to perform ADLs independently General On track(2023 9:49 AM CDT) Dianne Corona RN Note: 12/17/23: Patient stated she is independent with ASL's. Establish Plan for Symptom Monitoring-CHF General On track(2023 11:36 AM RAIL TRACK MAINTAINER) Dianne Corona RN Note: Patient will recognize [...] Symptom Monitoring-COPD General On track(2023 11:36 AM RAIL TRACK MAINTAINER) Dianne Corona RN Note: Patient will recognize [...] Symptom Monitoring-DM General On track(2023 4:33 PM RAIL TRACK MAINTAINER) Dianne Corona RN Note: Patient will manage [...] Symptom Monitoring-HTN General On track(2023 4:33 PM RAIL TRACK MAINTAINER) Dianne Corona RN Note: Patient will monitor B/P several times per week , record readings and report to physician or CC if B/P consistently >130/80 Take your medications as prescribed. Follow up with your provider as scheduled. Take your blood pressure at least several times a week if able. documented as of this encounter Visit Diagnoses Diagnosis Hyperparathyroidism ([facility])- Primary Hyperparathyroidism, unspecified documented in this encounter Additional Health Concerns Assessment Noted Time PHQ-9 Depression Total Score: 0 05/25/19 22 9:23 AM CDT documented as of this encounter Care Teams Supervisor Paper Testing Relationship Specialty Start Date End Date Sanjeev Webster DO [address] [place] [address] PCP - General FAMILY PRACTICE 09/25/20 Dianne Johnson RN [address] [place] [address] Line Clearance Foreman (Ambulatory) REGISTERED NURSE 08/14/20 documented as of this encounter
--- OUTSIDE RECORDS SUMMARY | 2024-03-15 01:07 | XMS_ITS | Encounter Summary ---
Author Organization [facility] Address Formerly [facility] [place] [address] [place] [address] Care Team Providers Care Electronic Technologist Name Role Phone Casey Johnson RN Unavailable [phone] Sanjeev Webster DO Primary Care Provider + Reason for Visit * Reason Onset Date Comments Care Management 06/21/2021 Encounter Details Date Type Department Care Team (Late st Contact Info) Description 06/21/2021 Patient Outreach [facility] Family & Internal Medicine [address] [id number] Casey Johnson, RN [address] [place] [address] Care Management Social History Tobacco [...] suspected to have Coronavirus/COVID-19? No / Unsure 06/20/2021 12:40 PM CDT documented as of this encounter Progress Notes * Casey Johnson RN - 06/21/2021 2:21 PM CDT Chronic Care Management: Patient concerns or urgent matters that need addressed: None identified during this phone call. Patient Status: Patient stated she was seen yesterday by Endo and awaiting a phone call regarding testing she needsdone. Patient stated she ate a roll for breakfast and a cup of coffee this morning. For breakfastshe usually eats cereal or eggs once in a while. Stated she plans on boiling some eggs for tomorrow. She is only checking her BS when she feels bad. Educated patient on the importance of checking BS daily and prn. Recording readings. If BS consistently <80 or consistently >200 to inform CC.[id number] takes care of her medications at this time. Reminded patient of upcoming appointment with on 06/25/21 at 10:20 am. Stated I just seen him. Informed patient that she wasseen on 05/24/21 and this is a 1 month f/u appointment. Patient wrote down the appointment information. Encouraged patient to call before that time if she has any questions or concerns. Plan of Care: studio coordinator will continue to follow up by phone, provide resources when needed, educate on disease management and assess chronic conditions. Patient Goals: Goals Addressed This Visit's Progress ??? Establish Plan for Symptom Monitoring-COPD On [...] of the above s/s at this time. ??? Establish Plan for Symptom Monitoring-DM Not [...] Stated I haven't been feeling bad lately. ??? Establish Plan for Symptom Monitoring-HTN On track Patient will recognize symptoms of hypertension and report to physician should they occur Notify your physician for symptoms of: 1. Severe headache 2. Shortness of breath 3. Nosebleed 4. Severe anxiety 5. Feeling of pulsations in the neck or head Take your medications as prescribed. Follow up [...] good at appointment yesterday. CC reviewedreading in [facility] from yesterday. B/P: 132/70 P: 65. Upcoming Visit Appointments: Future Appointments Date Time Provider Department Center 06/25/2021 10:20 AM Sanjeev Webster DO [id number] [facility] 07/04/2021 1:30 PM ALEX BONE DENSITY SEOMAMM [facility] ALEX 07/08/2021 3:20 PM Gracy Shore MD MGNEUOF [facility] OFALL 10/03/2021 1:40 PM Panda Moreno MD MGENDOF [facility] OF Quality care gaps: Health Maintenance Topic Date Due ??? Lipid Panel Never done ??? Diabetes: Retinopathy Eye Exam Never done ??? Hepatitis C Never done ??? Medicare Wellness Visit Never done ??? Zoster Vaccines (2 of 3) 02/19/2016 ??? Hemoglobin A1C 11/24/2021 ??? DTaP, Tdap and Td Vaccines (3 - Td or Tdap) 09/05/2030 ??? DEXA SCAN (GENERAL) Completed ??? Pneumococcal Vaccine: 65+ Years Completed ??? COVID-19 Vaccine Completed ??? Meningococcal Vaccine Aged Out Problem List: Patient Active Problem List Diagnosis ??? Abnormal stress test ??? Bradycardia ??? Chronic anticoagulation ??? 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 Diabetes mellitus [...] diabetes mellitus (CMS/HCC) ??? On amiodarone therapy Medications: Current Outpatient Medications Medication Sig Dispense [...] by mouth daily. 90 tablet 1 ??? azelastine (AZELASTINE) 0.1 % nasal spray 1 spray by Nasal route 2 (two) times daily. Use in each nostril as directed (Patient taking differently: 1 spray by Nasal route 2 (two) times daily. Use in each nostril as directed prn) 30 mL 1 ??? Blood Glucose Monitoring Suppl (BlazeMeter ULTRA 2) w/Device Kit Use daily as directed 1 kit 0 ??? Cholecalciferol (VITAMIN D3) 25 MCG (1000 UT) Cap Take 1,000 Units by mouth daily. ??? CONTOUR NEXT TEST test strip USE 1 STRIP TO CHECK GLUCOSE THREE TIMES DAILY ??? FEROSUL 325 (65 Fe) MG tablet Take 1 tablet (325 mg total) by mouth daily. 90 tablet 1 ??? fluticasone propionate 50 MCG/ACT nasal spray [...] mg total) by mouth see administration instructions. [id number] tablet on , fridays and mondays 270 tablet 1 ??? warfarin 6 MG tablet Take 1 tablet (6 mg total) by mouth daily. (Patient taking differently: 9 mg on Mondays and 6 mg the other days) 90 tablet 1 No current facility-administered medications for this visit. CASEY JOHNSON RN documented in this encounter Plan of Treatment Upcoming Encounters Date Type Department Care Team (Late st Contact Info) Description 04/14/2024 2:00 PM BUSINESS ADMINISTRATION INSTRUCTOR Office Visit [facility] Multispecialty Care - [facility] [address], [address] [place] [address] Julio Pulido MD [address] [place] [address] documented as of this encounter Goals Goal Patient Goal Type Associated Problems Recent Progress Patient-Stated? Author Health - patient able to perform ADLs independently General On track(2023 9:49 AM CDT) Casey Corona RN Note: 12/17/23: Patient stated she is independent with ASL's. Establish Plan for Symptom Monitoring-CHF General On track(2023 11:36 AM BUSINESS ADMINISTRATION INSTRUCTOR) Casey Corona RN Note: Patient will recognize [...] General On track(2023 11:36 AM BUSINESS ADMINISTRATION INSTRUCTOR) Casey Corona RN Note: Patient will recognize [...] General On track(2023 4:33 PM BUSINESS ADMINISTRATION INSTRUCTOR) Casey Corona RN Note: Patient will manage [...] General On track(2023 4:33 PM BUSINESS ADMINISTRATION INSTRUCTOR) Casey Corona RN Note: Patient will monitor [...] documented as of this encounter Care Teams Electronic Technologist Relationship Specialty Start Date End Date Sanjeev Webster DO [address] [place] [id number] PCP - General FAMILY PRACTICE 09/25/20 Casey Johnson, RN [facility] [place] [address] Insurance Underwriting Assistant (Ambulatory) REGISTERED NURSE 08/14/20 documented as of this encounter
--- OUTSIDE RECORDS SUMMARY | 2024-03-15 01:07 | XMS_ITS | Encounter Summary ---
Author Organization [facility] Address [address] [place] [address]. [place] [address] [place] [address] Care Team Providers Care Radiator Cleaner Name Role Phone Dianne Johnson RN Unavailable [phone] Sanjeev Webster DO Primary Care Provider + Encounter Details Date Type Department Care Team (Late st Contact Info) Description 07/16/2021 Orders Only [facility] Diabetes and Endocrinology - [place] [address] [facility] [address] [place], [place] [address] Panda Moreno MD Social History Tobacco Use [...] (Late Contact Info) Description 04/14/2024 2:00 PM HYDRAMATIC SPECIALIST Office Visit [facility] Multispecialty Care - [facility] [address] [facility], [address] [place] [address] Julio Pulido MD [address] [place] [address] documented as of this encounter Goals Goal Patient Goal Type Associated Problems Recent Progress Patient-Stated? Author Health - patient able to perform ADLs independently General On track(2023 9:49 AM CDT) Dianne Corona RN Note: 12/17/23: Patient stated she is independent with ASL's. Establish Plan for Symptom Monitoring-CHF General On track(2023 11:36 AM HYDRAMATIC SPECIALIST) Dianne Corona RN Note: Patient will [...] Symptom Monitoring-COPD General On track(2023 11:36 AM HYDRAMATIC SPECIALIST) Dianne Corona RN Note: Patient will [...] Symptom Monitoring-DM General On track(2023 4:33 PM HYDRAMATIC SPECIALIST) Dianne Corona RN Note: Patient will [...] Symptom Monitoring-HTN General On track(2023 4:33 PM HYDRAMATIC SPECIALIST) Dianne Corona RN Note: Patient will monitor B/P several times per week , record readings and report to physician or CC if B/P consistently >130/80 Take your medications as prescribed. Follow up with your provider as scheduled. Take your blood pressure at least several times a week if able. documented as of this encounter Visit Diagnoses Diagnosis Age-related osteoporosis with current pathological fracture, initial encounter- Primary Other osteoporosis, unspecified pathological fracture presence documented in this encounter Additional Health Concerns Assessment Noted Time PHQ-9 Depression Total Score: 0 05/25/19 22 9:23 AM CDT documented as of this encounter Care Teams Radiator Cleaner Relationship Specialty Start Date End Date Sanjeev Webster DO [address] [place] [id number] PCP - General FAMILY PRACTICE 09/25/20 Dianne Johnson, RN [address] [place] [address] Computational Scientist (Ambulatory) REGISTERED NURSE 08/14/20 documented as of this encounter
--- OUTSIDE RECORDS SUMMARY | 2024-03-15 01:07 | XMS_ITS | Encounter Summary ---
Author Organization [facility] Address [facility]. [place], [place] [id number] [place] [id number] Care Team Providers Care Hearing Impaired Teacher Name Role Phone Dianne Johnson RN Unavailable [phone] Sanjeev Webster DO Primary Care Provider + Reason for Referral * Imaging (Routine) - Closed Specialty Diagnoses / Procedures Referred By Ian malagon Referred To Contact RADIOLOGY Diagnoses Osteoporosis, unspecified osteoporosis type, unspecified pathological fracture presence Procedures BONE DENSITY/DEXA Pnada Mares MD Referral ID Status Reason Start Date Expiration Date Visits Re quested Visits Authorized [id number] Closed 06/20/2021 07/20/2022 1 1 Reason for Visit * Reason Comments New Patient refer by DR Elsie hsieh for type 2 DM * Consultation (Routine) - Closed Specialty Diagnoses / Procedures Referred By Ian malagon Referred To Contact ENDOCRINOLOGY Diagnoses Type 2 diabetes mellitus with diabetic peripheral angiopathy without gangrene, without long-term current use of insulin ([facility]) Sanjeev Webster DO [address] [place] [address] Phone: tel: fax: Panda Mares MD Referral ID Status Reason Start Date Expiration Date Visits Re quested Visits Authorized [id number] Closed 06/17/2021 12/20/2021 6 6 Encounter Details Date Type Department Care Team (Latest Contact Info) Description 06/20/2021 12:40 PM CDT Office Visit [facility] Diabetes and Endocrinology - [address] [address] Panda Mares MD New Patient ( refer by DR Webster for type 2 DM) Social History Tobacco Use Types Packs/Day Years [...] Reading Time Taken Comments Blood Pressure 132/70 06/20/2021 12:51 PM CDT Pulse 65 06/20/2021 12:51 PM CDT Temperature 36.3 ??C (97.3 ??F) 06/20/2021 1 2:51 PM CDT Respiratory Rate 20 06/20/2021 12:5 1 PM CDT Oxygen Saturation 97% 06/20/2021 12: 51 PM CDT Inhaled Oxygen Concentration - - Weight 86.1 kg (189 lb 12.8 oz) 022 12:51 PM CDT Height 162.6 cm (5' 4 ) 06/20/2021 12:5 1 PM CDT Body Mass Index 32.58 06/20/2021 12:51 PM CDT documented in this encounter Progress Notes * Panda Mares MD - 06/20/2021 12:40 PM CDT The reason for Visit: New Patient ( refer by DR Webster for type 2 DM) PCP: Sanjeev Webster, DO Summary Radha Huynh is a very pleasant 76-year-old female Known with DM HLP HTN COPD CAD A-fib LBBB VAZQUEZ HI dementia She was referred for hypercalcemia History of Present Illness this visit Hypercalcemia Hx dates back to 2019 at least where her CMP showed mildly high calcium. Denies previous knowledge of it. Family hx: negative . Current medications of significance : lasix, Amiodarone Current symptoms : Reports a Fracture last year ( 2020): Colles' fracture Denies Loss of height Reports Fatigue and weakness, Cognitive dysfunction ( memory loss) ,Dry skin and hair Denies Weight changes , Edema Medications: Current Outpatient Medications: ??? acetaminophen 325 MG tablet, Take 650 mg by mouth daily as needed. , Disp: , Rfl: ??? albuterol sulfate HFA 108 (90 Base) MCG/ACT inhaler, Inhale 2 puffs into the lungs every 6 (six) hours as needed for Wheezing., Disp: 18 g, Rfl: 1 ??? amiodarone 200 MG tablet, Take 100 mg by mouth daily. , Disp: , Rfl: ??? atorvastatin 10 MG tablet, Take 1 tablet (10 mg total) by mouth daily., Disp: 90 tablet, Rfl: 1 ??? azelastine (AZELASTINE) 0.1 % nasal spray, 1 spray by Nasal route 2 (two) times daily. Use in each nostril as directed (Patient taking differently: 1 spray by Nasal route 2 (two) times daily. Usein each nostril as directed prn), Disp: 30 mL, Rfl: 1 ??? CONTOUR NEXT TEST test strip, USE 1 STRIP TO CHECK GLUCOSE THREE TIMES DAILY, Disp: , Rfl: ??? FEROSUL 325 (65 Fe) MG tablet, Take 1 tablet (325 mg total) by mouth daily., Disp: 90 tablet, Rfl: 1 ??? furosemide 20 MG tablet, Take 1 tab every other day., Disp: 90 tablet, Rfl: 1 ??? gabapentin 300 MG capsule, Take 1 capsule (300 mg total) by mouth 2 (two) times daily., Disp: 180 capsule, Rfl: 0 ??? HYDROcodone-acetaminophen 10-325 MG tablet, Take 1 tablet by mouth every 6 (six) hours as needed for Pain. Indications: Chronic Pain Do not take with alprazolam, Disp: 30 tablet, Rfl: 0 ??? Lancets Mis, Test daily as directed, Disp: 100 each, Rfl: 1 ??? lidocaine 5 %, Apply pain patch to affected area. Change after 12 hours., Disp: 6 patch, Rfl: 0 ??? LISINOPRIL 40 MG tablet, Take 1 tablet by mouth once daily, Disp: 90 tablet, Rfl: 1 ??? OMEPRAZOLE 20 MG capsule, Take 1 capsule by mouth once daily, Disp: 90 capsule, Rfl: 0 ??? VENLAFAXINE XR 150 MG 24 hr capsule, Take 1 capsule by mouth once daily, Disp: 90 capsule, Rfl:0 ??? warfarin 1 MG tablet, Take 3 tablets (3 mg total) by mouth see administration instructions. With 6mg tablet on , fridays and mondays, Disp: 270 tablet, Rfl: 1 ??? warfarin 6 MG tablet, Take 1 tablet (6 mg total) by mouth daily. (Patient taking differently: 9mg on Mondays and 6 mg the other days), Disp: 90 tablet, Rfl: 1 ??? ALPRAZolam 0.25 MG tablet, Take 1 tablet (0.25 mg total) by mouth 2 (two) times daily as neededfor Anxiety., Disp: 30 tablet, Rfl: 0 ??? Blood Glucose Monitoring Suppl (ONE TOUCH ULTRA 2) w/Device Kit, Use daily as directed, Disp: 1kit, Rfl: 0 ??? Cholecalciferol (VITAMIN D3) 25 MCG (1000 UT) Cap, Take 1,000 Units by mouth daily., Disp: , Rfl: ??? fluticasone propionate 50 MCG/ACT nasal spray, 2 sprays by Nasal route daily., Disp: , Rfl: ??? Glucose Blood test strip, 1 strip by Other route daily as needed., Disp: 100 strip, Rfl: 0 ??? oxymetazoline 0.05 % nasal spray, Not to exceed 3 days. May use for 3 days then refrain for 3 days and repeat as needed., Disp: 20 mL, Rfl: 0 Allergies Allergen Reactions ??? Tape Contact Dermatitis ??? Bacitracin Other [...] other systems reviewed and are negative. Vitals: Filed Vitals: 06/20/21 1251 BP: 132/70 Pulse: 65 Resp: 20 Temp: 97.3 ??F (36.3 ??C) TempSrc: Temporal SpO2: 97% Weight: 86.1 kg (189 lb 12.8 oz) Height: 5' 4 (1.626 m) Physical Exam: Physical Exam Vitals and nursing [...] CREATININE S/P/B Date Value Ref Range Status 05/24/2021 1.49 (H) 0.55 - 1.02 MG/DL Final AST Date Value Ref Range Status 05/24/2021 13 (L) 15 - 37 U/L Final ALT Date Value Ref Range Status 05/24/2021 11 (L) 14 - 59 U/L Final TSH Date Value Ref Range Status 05/24/2021 1.785 0.358 - 3.740 uIU/ML Final HGB Date Value Ref Range Status 05/24/2021 12.0 12.0 - 16.0 G/DL Final HGB A1C Date Value Ref Range Status 05/24/2021 6.5 % Final BONE DENSITY GENERIC Ordered by an unspecified provider. Assessment and Plan Diagnoses and all orders for this visit: Hypercalcemia Mild per A1c varying between normal and 10.9 ( not exceeding 11.2 mg/dl ) With CKD III ( rather stable over the last few years ) PTH is > 200; high TSH is normal Recommendations: Will need to complete the w/u with the labs below Also, will need a new DXA scan ( and old DXA from 2011 showed significant osteopenia ) Address accordingly: will try to be conservative with her given how medically fragile she is - CALCIUM URINE 24 HR; Future - PHOSPHORUS, INORGANIC PHOSPHATE; Future - VITAMIN D, 25 [place]; Future - BONE DENSITY/DEXA; Future Panda Mares Referring Provider: Sanjeev Webster DO PCP: Sanjeev Webster DO * Rafia Smith LPN - 06/20/2021 12:40 PM CDT DX: DM2 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 no Concerns: -mony bennett took bs after was 276 documented in this encounter Plan of Treatment Upcoming Encounters Date Type Department Care Team (Late st Contact Info) Description 04/14/2024 2:00 PM CHRONIC MANAGER Office Visit [facility] Multispecialty Care - [address], [address] [place] [address] Julio Pulido MD [address] [place] [address] documented as of this encounter Goals Goal Patient Goal Type Associated Problems Recent Progress Patient-Stated? Author Health - patient able to perform ADLs independently General On track(2023 9:49 AM CDT) Dianne Corona RN Note: 12/17/23: Patient stated she is independent with ASL's. Establish Plan for Symptom Monitoring-CHF General On track(2023 11:36 AM CHRONIC MANAGER) Dianne Corona RN Note: Patient will [...] Monitoring-COPD General On track(2023 11:36 AM CHRONIC MANAGER) Dianne Corona RN Note: Patient will [...] Monitoring-DM General On track(2023 4:33 PM CHRONIC MANAGER) Dianne Corona RN Note: Patient will [...] Monitoring-HTN General On track(2023 4:33 PM CHRONIC MANAGER) Dianne Corona RN Note: Patient will monitor B/P several times per week , record readings and report to physician or CC if B/P consistently >130/80 Take your medications as prescribed. Follow up with your provider as scheduled. Take your blood pressure at least several times a week if able. documented as of this encounter Results * BONE DENSITY/DEXA (07/15/2021 12:21 PM CDT) Anatomical Region Laterality Modality Bone Mammography 07/16/2021 12:0 2 PM CDT Impressions 07/16/2021 12:05 PM CDT Impression: BMD measured at both femoral necks and right total hip at WHO category level of osteoporosis. BMD measured at left total hip and AP lumbar spine at level of osteopenia. Ordered By: PANDA MARES Interpreted By: Palomo Chandler MD, 07/16/2021 12:02 PM Narrative 07/16/2021 12:05 PM CDT Examination: DEXA Bone densitometry EXAM DATE: ??07/15/2021 11:53 AM Clinical history: Prior fracture. History of rheumatoid arthritis. Medical treatment of osteoporosis. Dairy product consumption. Technique: DEXA bone minimal density evaluation was performed in the AP projection over the lumbar spine and over both hips in the AP projection utilizing standard imaging techniques. Assessment: The BMD measured at the AP spine L1-L4 is 0.879 g/cm? with a T-score of -1.5 and a Z-Score of ??1.0. ?? The patient is considered osteopenic according to World Health Organization (WHO) criteria. Bone density is between 10 and 25% below young normal. Fracture risk is moderate. Treatment is advised. The BMD measured at the femur total left is 0.683 g/cm? with a T-score of -2.1 and a Z-Score of -0.2. ?The patient is considered osteopenic according to World Health Organization (WHO) criteria. Bone density is between 10 and 25% below young normal. Fracture risk is moderate. Treatment is advised. The BMD measured at the left femoral neck is 0.433 g/sq cm resulting in a T score of -3.8 and a Z score of -1.6, values at the WHO category level of osteoporosis. The BMD measured at the femur total right is 0.604 g/cm? with a T-score of -2.8 and aZ-Score of ??-0.9. ?? This patient is considered osteoporotic according to the world health organizations (WHO) criteria. Fracture risk is high. Pharmacological treatment, if not already prescribed should be considered. If pharmacological treatment is utilized, a followup bone density chest is recommended in one year to monitor response to therapy. The BMD measured at the right femoral neck is 0.438 g/sq cm resulting in a T score of -3.7 and a Z score of -1.5, values at the WHO category level of osteoporosis. FRAX results: 10 year probability of major osteoporotic fracture 28% and of hip fracture 13%. Recommendations: All patients should ensure an adequate intake of dietary calcium and vitamin D. The NOF recommend adults under the age of 50 need 1000 mg of calcium and 400-800 IU of vitamin D daily. Effective therapy for the prevention and treatment of osteoporosis include biphosphonates. Follow-up: People with diagnosed cases of osteoporosis or at high risk for fracture should have regular bone mineral density test. For patients eligible for Medicare, routine testing is allowed once every 2 years. Testing frequency can be increased to one year for patients who have rapidly progressing disease, those who are receiving or discontinuing medical therapy to restore bone mass, or have additional risk factors. Based on these results, a followup exam is recommended in no earlier than 2 years for routine follow-up. As early as 1 year to assess efficacy of new medication therapy for treatment of osteoporosis. Procedure Note Palomo Chandler MD - 07/16/2021 Examination: DEXA Bone densitometry EXAM DATE: 07/15/2021 11:53 AM Clinical history: Prior fracture. History of rheumatoid arthritis. Medicaltreatment of osteoporosis. Dairy product consumption. Technique: DEXA bone minimal density evaluation was performed in the APprojection over the lumbar spine and over both hips in the AP projectionutilizing standard imaging techniques. Assessment: The BMD measured at the AP spine L1-L4 is 0.879 g/cm? with a T-score of-1.5 and a Z-Score of 1.0. The patient is considered osteopenicaccording to World Health Organization (WHO) criteria. Bone density isbetween 10 and 25% below young normal. Fracture risk is moderate.Treatment is advised. The BMD measured at the femur total left is 0.683 g/cm? with a T-score of-2.1 and a Z-Score of -0.2. The patient is considered osteopenicaccording to World Health Organization (WHO) criteria. Bone density isbetween 10 and 25% below young normal. Fracture risk is moderate.Treatment is advised. The BMD measured at the left femoral neck is 0.433 g/sq cm resulting in aT score of -3.8 and a Z score of -1.6, values at the WHO category level ofosteoporosis. The BMD measured at the femur total right is 0.604 g/cm? with a T-score of-2.8 and aZ-Score of -0.9. This patient is considered osteoporoticaccording to the world health organizations (WHO) criteria. Fracture riskis high. Pharmacological treatment, if not already prescribed should beconsidered. If pharmacological treatment is utilized, a followup bonedensity chest is recommended in one year to monitor response to therapy. The BMD measured at the right femoral neck is 0.438 g/sq cm resulting in aT score of -3.7 and a Z score of -1.5, values at the WHO category level ofosteoporosis. FRAX results: 10 year probability of major osteoporotic fracture 28% andof hip fracture 13%. Recommendations: All patients should ensure an adequate intake of dietary calcium andvitamin D. The NOF recommend adults under the age of 50 need 1000 mg ofcalcium and 400-800 IU of vitamin D daily. Effective therapy for theprevention and treatment of osteoporosis include biphosphonates. Follow-up: People with diagnosed cases of osteoporosis or at high risk for fractureshould have regular bone mineral density test. For patients eligible forMedicare, routine testing is allowed once every 2 years. Testing frequencycan be increased to one year for patients who have rapidly progressingdisease, those who are receiving or discontinuing medical therapy torestore bone mass, or have additional risk factors. Based on these results, a followup exam is recommended in no earlier than2 years for routine follow-up. As early as 1 year to assess efficacy ofnew medication therapy for treatment of osteoporosis. Impression: BMD measured at both femoral necks and right total hip at WHO categorylevel of osteoporosis. BMD measured at left total hip and AP lumbar spine at level ofosteopenia. Ordered By: PANDA MARES Interpreted By: Palomo Chandler MD, 07/16/2021 12:02 PM us Panda Mares MD DEXA Final Result documented in this encounter Visit Diagnoses Diagnosis Hypercalcemia- Primary Osteoporosis screening Special screening for osteoporosis Osteoporosis, unspecified osteoporosis type, unspecified pathological fracture presence Osteoporosis, unspecified osteoporosis type, unspecified pathological fracture presence documented in this encounter Additional Health Concerns Assessment Noted Time PHQ-9 Depression Total Score: 0 05/25/19 22 9:23 AM CDT documented as of this encounter Care Teams Hearing Impaired Teacher Relationship Specialty Start Date End Date Sanjeev Webster DO [address] [place] [id number] PCP - General FAMILY PRACTICE 09/25/20 Dianne Johnson, RN [address] [place] [address] Adult Crossing Guard (Ambulatory) REGISTERED NURSE 08/14/20 documented as of this encounter
--- OUTSIDE RECORDS SUMMARY | 2024-03-15 01:07 | XMS_ITS | Encounter Summary ---
Author Organization [facility] Address [facility] [place] [address] [place] [address] Care Team Providers Care Motorboat Mechanic Name Role Phone Dianne Johnson RN Unavailable [phone] Sanjeev Webster DO Primary Care Provider + Reason for Visit * Reason Onset Date Comments Care Management 05/24/2021 Encounter Details Date Type Department Care Team (Late st Contact Info) Description 05/24/2021 Patient Outreach [facility] Family & Internal Medicine [address] [address] Stu Ruiz RN [address] [place] [address] Care Management Social History Tobacco Use Types Packs/Day Years Used Date Smoking Tobacco: Never Smokeless Tobacco: Never Comments:non smoker Alcohol Use Standard Drinks/Week Comments Not Currently 0 (1 standard drink = 0.6 oz pur e alcohol) PHQ-2 Answer Date Recorded PHQ-2 Score - If the patient scores above 3, please move on to questions 3-9 0 05/24/2021 Comments No Sex and Gender Information Value Date Recorded Sex Assigned at Not on file Legal Sex Female 11:18 AM CDT Gender Identity Not on file Sexual Orientation Not on file COVID-19 Exposure Response Date Recorded In the last 10 days, have yo u been in contact with someone who was confirmed or suspected to have Coronavirus/COVID-19? No / Unsure 05/24/2021 9:08 AM CDT documented as of this encounter Progress Notes * Stu Ruiz RN - 05/24/2021 2:02 PM CDT Chronic Care Management: Patient concerns or urgent matters that need addressed: no Patient Status: Patient doing well. Told CC about episode the other day where she though she was having a stroke, but then they realized that patient had taken alprazolam close to the same time as a hydrocodone-acetaminophen and they reacted against each other and caused patient to not know what was going on. aundrea labs today at MD appt. Patient does not check FBS's at home and said MD checked it today, but she had a candy bar on the way to her appt this morning. No shortness of breath noted.No edema. Today's wt= 189#. Appetite is good, but patient doesn't eat three meals a day. CC instructed patient on the importance of three meals a day due to DM. Choreworker has not been coming and patient not sure but has phone number to call to check on status of that. Patient's sister, Shannon lives nearby and patient talks to her daily. No medication refills needed at this time and patient will call CC if any questions or issues arise. Plan of Care: CC will continue to follow the patient by phone and patient is agreeable. Patient Goals: Goals Addressed This Visit's Progress ??? Establish Plan for Symptom Monitoring-CHF Patient will recognize symptoms of CHF and [...] any shortness of breath and no edema. ??? Establish Plan for Symptom Monitoring-COPD Patient will recognize symptoms of COPD exacerbation [...] shortness of breath reported today. Weight stable. ??? Health - patient able to perform ADLs independently 09/25: Patient is independent with ADL's. 10/05: Patient independent with ADL's. Stated she has a built in shower seat in shower with hand rails. Stated she uses a cane most of the time but when her back hurts really bad she uses a walker. Stated when she stands to wash dishes her back hurts. Reports Tylenol or [place] helps a little. Message sent to Bebe BHATTI) to find out the status on drag out worker. 10/23/20: Independent with ADL's. 12/10/20: Patient having issues sweeping etc since right hand fx. Stated she will contact [email or web address] if another drag out worker will be helping her. Stated she prefers to wait until after she comes back from visiting her son in [place]. 12/27/20: Patient stated she is having issues getting a drag out worker due to [employer] being short staffed. Stated she plans on calling them back today to find out status. Stated her pastors daughter put in application to help her about 1 1/2 months ago but she hasn't received a call. Stated she will call them today. 01/11/21: grounds worker will start on Thursday and help [...] Patient stated she is getting a new drag out worker next week to help clean her home. Denies any recent falls. 04/10/21: Patient's [id number] is filling mediplanner for the patient. 04/29/21: Patient stated the drag out worker did not show up again. Gave patient number to ELADIO. She wrote it down and will call for assistance. 05/24/21: Choreworker has not been coming and patient unsure why. Patient has number to call to check on status, but just hasn't done that yet. Upcoming Visit Appointments: Future Appointments Date Time Provider Department Center 06/20/2021 12:40 PM Panda Moreno MD [facility] 06/25/2021 10:20 AM Sanjeev Webster, [facility] Quality care gaps: Health Maintenance Topic Date [...] Chronic anticoagulation ??? Coronary artery disease involving habematolel coronary artery of habematolel heart without angina pectoris ??? Diabetes mellitus [...] 31.0-31.9, adult ??? Saccular aneurysm ??? Chronic obstructive lung disease (CMS/HCC) ??? Chronic renal disease, stage III (CMS/HCC) [...] involving multiple joints ??? Vision loss ??? Wears glasses ??? COPD (chronic obstructive pulmonary disease) (CMS/HCC) [...] each nostril as directed 30 mL 1 ??? Blood Glucose Monitoring Suppl ([employer] TOUCH ULTRA 2) w/Device Kit Use daily [...] hours as neededfor Pain. Indications: Chronic Pain Please call office regarding refills at earliest convenience. 30 tablet 0 ??? Lancets Misc Test daily as directed 100 each 1 ??? lidocaine 5 % Apply pain patch to affected area. Change after 12 hours. 6 patch 0 ??? LISINOPRIL 40 MG tablet Take 1 tablet by mouth once daily 90 tablet 1 ??? omeprazole 20 MG capsule Take 1 capsule (20 mg total) by mouth daily. 90 capsule 1 ??? oxymetazoline 0.05 % nasal spray Not to exceed 3 days. May use for 3 days then refrain for 3 days and repeat as needed. 20 mL 0 ??? venlafaxine XR 150 MG 24 hr capsule Take 1 capsule (150 mg total) by mouth daily. 90 capsule 1 ??? warfarin 1 MG tablet Take 3 tablets (3 mg total) by mouth see administration instructions. [id number] tablet on , fridays and mondays 270 tablet 1 ??? warfarin 6 MG tablet Take 1 tablet (6 mg total) by mouth daily. (Patient taking differently: 9 mg on Mondays and 6 mg the other days) 90 tablet 1 No current facility-administered medications for this visit. STU RUIZ RN * Dianne Johnson RN - 05/24/2021 2:02 PM CDT Thank you. documented in this encounter Plan of Treatment Upcoming Encounters Date Type Department Care Team (Late st Contact Info) Description 04/14/2024 2:00 PM CRUISE AGENT Office Visit [facility] Multispecialty Care - [facility] [address] [facility], [address] [place] [phone] Julio Pulido MD 3 [place] [address] documented as of this encounter Goals Goal Patient Goal Type Associated Problems Recent Progress Patient-Stated? Author Health - patient able to perform ADLs independently General On track(2023 9:49 AM CDT) Dianne Corona RN Note: 12/17/23: Patient stated she is independent with ASL's. Establish Plan for Symptom Monitoring-CHF General On track(2023 11:36 AM CRUISE AGENT) Dianne Corona RN Note: Patient will [...] Symptom Monitoring-COPD General On track(2023 11:36 AM CRUISE AGENT) Dianne Corona RN Note: Patient will [...] Symptom Monitoring-DM General On track(2023 4:33 PM CRUISE AGENT) Dianne Corona RN Note: Patient will [...] Symptom Monitoring-HTN General On track(2023 4:33 PM CRUISE AGENT) Dianne Corona RN Note: Patient will [...] documented as of this encounter Care Teams Motorboat Mechanic Relationship Specialty Start Date End Date Sanjeev Webster DO [address] [place] [address] PCP - General FAMILY PRACTICE 09/25/20 Dianne Johnson RN [address] [place] [address] Wealth Management Director (Ambulatory) REGISTERED NURSE 08/14/20 documented as of this encounter
--- OUTSIDE RECORDS SUMMARY | 2024-03-15 01:07 | XMS_ITS | Encounter Summary ---
Author Organization [facility] Address [id number]. [place], [place] [address] [place] [address] Care Team Providers Care Electrical Prospecting Engineer Name Role Phone Dianne Johnson RN Unavailable [phone] Sanjeev Webster DO Primary Care Provider + Encounter Details Date Type Department Care Team (Late st Contact Info) Description 08/29/2021 11:40 AM CDT Flu/Imm Clinic [facility] Family & Internal Medicine [address] [address] Sanjeev Webster DO [address] [place] [address] Social History Tobacco Use Types Packs/Day [...] Info) Description 04/14/2024 2:00 PM DIRECTOR OF PLANNING Office Visit [facility] Multispecialty Care - [facility] 3 [facility], [address] [place] [address] Julio Pulido MD 3 [place] [address] documented as of this encounter Goals Goal Patient Goal Type Associated Problems Recent Progress Patient-Stated? Author Health - patient able to perform ADLs independently General On track(2023 9:49 AM CDT) Dianne Corona, RN Note: 12/17/23: Patient stated she is independent with ASL's. Establish Plan for Symptom Monitoring-CHF General On track(2023 11:36 AM DIRECTOR OF PLANNING) Dianne Corona, RN Note: Patient will recognize [...] General On track(2023 11:36 AM DIRECTOR OF PLANNING) Dianne Corona, RN Note: Patient will recognize [...] General On track(2023 4:33 PM DIRECTOR OF PLANNING) Dianne Corona RN Note: Patient will manage [...] General On track(2023 4:33 PM DIRECTOR OF PLANNING) Dianne Corona, RN Note: Patient will monitor B/P several times per week , record readings and report to physician or CC if B/P consistently >130/80 Take your medications as prescribed. Follow up with your provider as scheduled. Take your blood pressure at least several times a week if able. documented as of this encounter Visit Diagnoses Diagnosis Need for prophylactic vaccination against viral disease- Primary Need for prophylactic vaccination and inoculation against other viral diseases documented in this encounter Additional Health Concerns Assessment Noted Time PHQ-9 Depression Total Score: 0 05/25/19 22 9:23 AM CDT documented as of this encounter Care Teams Electrical Prospecting Engineer Relationship Specialty Start Date End Date Sanjeev Webster DO [address] [place] [address] PCP - General FAMILY PRACTICE 09/25/20 Dianne Johnson RN [address] [place] [address] Business Systems Architect (Ambulatory) REGISTERED NURSE 08/14/20 documented as of this encounter
--- OUTSIDE RECORDS SUMMARY | 2024-03-15 01:07 | XMS_ITS | Encounter Summary ---
Author Organization [facility] Address [facility] [place] [address] [place] [address] Care Team Providers Care Industrial Electrician Journeyman Name Role Phone Dianne Johnson RN Unavailable [phone] Sanjeev Webster DO Primary Care Provider + Reason for Visit * Reason Onset Date Comments Follow Up Call 05/24/2021 Encounter Details Date Type Department Care Team (Late st Contact Info) Description 05/24/2021 Telephone [facility] Family & Internal Medicine [place] [place] [address] Sanjeev Webster DO [facility] [place] [address] Follow Up Call Social History [...] Progress Notes * Natalee Brown RN - 05/29/2021 10:19 AM CDT Brenda called back into the office. She stated that the patient told her that she took her nerve pill (Alprazolam) around 8:30 Am before she left the house. The patient arrived to the friend's housearound 9 AM. They went to their [facility] meeting and was at [facility] by 11 AM. When they arrived at [facility] patient took a pain pill (hydrocodone). Patient's friend said around 11:30 the patient started to become loopy . While in the drive-through, the patient was told to pull around and they will bring the food out to the car. When patient was driving around to the parking lot, she drove up on the side walk. Brenda said then the patient would fall asleep in the middle of a sentence or in the middle of a bitof chicken. She would wake up and start laughing and then fall back to sleep. Arnoldo said they waited there for several hours and then were able to call family to come and pick them up. Arnoldo said around 4 PM patient was more responsive and not falling asleep. However, the patient was still noted slurring her words. LL-05/29/21 * Natalee Brown RN - 05/28/2021 1:24 PM CDT Attempted to call the patient's friend Brenda. was unable to reach them at this time. Left a messagerequesting a call back. [facility]'s (Take off pounds) is a weight-loss support group at the [facility]. No medication is given at these meetings. LL-05/28/21 * Sanjeev Webster DO - 05/27/2021 8:00 AM CDT Also please inquire about this weight loss place; ensure she isn't taking additional medications that aren't listed. * Natalee Brown RN - 05/24/2021 11:23 AM CDT Called and spoke with patient's sister (Shannon, patient gave verbal ok to speak with her). She stated her sister was at [facility]'s a weight loss place in the morning. Then she went to [employer] for lunch with a friend (Brenda). The friend called Shannon stating the patient was not acting right. When the sister got on the phone with the patient, she could not understand her. The sister said when patient was talking her words were slurred and then she would get quiet. The sister called the patient son and then went to [employer] herself. Sister stated when she arrived the patient seemed drunk, but did not have anything to drink. Sister also said the workers at [employer] stated they had been there for 3 hours. Sister stated the patient was like this for a few days after. Patient sister said to call Brenda for more information.Patient gave verbal ok to speak with her friend Brenda [phone]. Brenda is having test done today at the hospital, so will reach out to sammi Thursday. LL-05/24/21 documented in this encounter Plan of Treatment Upcoming Encounters Date Type Department Care Team (Late st Contact Info) Description 04/14/2024 2:00 PM CYLINDER BLOCK MECHANIC Office Visit [facility] Multispecialty Care - [facility] [address] [facility], [address] [place] [phone] Julio Pulido MD 3 [place] [address] documented as of this encounter Goals Goal Patient Goal Type Associated Problems Recent Progress Patient-Stated? Author Health - patient able to perform ADLs independently General On track(2023 9:49 AM CDT) Dianne Corona RN Note: 12/17/23: Patient stated she is independent with ASL's. Establish Plan for Symptom Monitoring-CHF General On track(2023 11:36 AM CYLINDER BLOCK MECHANIC) Dianne Corona RN Note: Patient will [...] Symptom Monitoring-COPD General On track(2023 11:36 AM CYLINDER BLOCK MECHANIC) Dianne Corona RN Note: Patient will [...] Symptom Monitoring-DM General On track(2023 4:33 PM CYLINDER BLOCK MECHANIC) Dianne Corona RN Note: Patient will [...] Symptom Monitoring-HTN General On track(2023 4:33 PM CYLINDER BLOCK MECHANIC) No Dianne Johnson RN Note: Patient will [...] Date End Date Sanjeev Webster DO [address] [place] [address] PCP - General FAMILY PRACTICE 09/25/20 Dianne Johnson, RN [address] [place] [address] Retail Cosmetics Sales Beauty Advisor (Ambulatory) REGISTERED NURSE 08/14/20 documented as of this encounter
--- OUTSIDE RECORDS SUMMARY | 2024-03-15 01:07 | XMS_ITS | Encounter Summary ---
Author Organization [facility] Address [facility] [place] [address] [place] [address] Care Team Providers Care Casing Sewer Name Role Phone Dianne Johnson RN Unavailable [phone] Sanjeev Webster DO Primary Care Provider + Reason for Referral * Imaging (Routine) - Closed Specialty Diagnoses / Procedures Referred By Ian t Referred To Contact RADIOLOGY Diagnoses RUQ pain Procedures US ABD LIMITED US ABD LIMITED Sanjeev Webster DO [address] [place] [address] Phone: tel: fax: [facility] [address] [facility] [address] [place] [address] Phone: tel: fax: Referral ID Status Reason Start Date Expiration Date Visits Re quested Visits Authorized [id number] Closed 09/03/2021 10/03/2022 1 1 Reason for Visit * Reason Onset Date Comments Abdominal Pain 09/03/2021 Encounter Details Date Type Department Care Team (Late st Contact Info) Description 09/03/2021 Telephone [facility] Family & Internal Medicine - [place] [address] [place] [phone] Sanjeev Webster DO [address] [place] [address] Abdominal Pain Social History Tobacco Use Types Packs/Day [...] as of this encounter Progress Notes * Jacquelyn Rodríguez MA - 09/13/2021 10:01 AM CDT Pt already got US in [place] on 09/10/2021. [facility] is faxing over results of US of ABD. BB 09/13/2021 * Jacquelyn Rodríguez MA - 09/13/2021 10:01 AM CDTAddended by: JACQUELYN RODRÍGUEZ on: 09/13/2021 10:01 AM Modules accepted: Orders * Sanjeev Webster DO - 09/03/2021 3:03 PM CDT Noted. * Trixie Castillo MA - 09/03/2021 2:52 PM CDTAddended by: TRIXIE CASTILLO on: 09/03/2021 02:52 PM Modules accepted: Orders * Trixie Castillo MA - 09/03/2021 2:44 PM CDT [facility] can get patient in on 09/10/21 at 8 am. Patient agreed to switch to them. Informed to fast for 8 hours prior to the test. Patient is wanting you to know that she is supposed to stop her thyroid medication for 4-6 weeks inorder to have the thyroid uptake scan. * Sanjeev Webster DO - 09/03/2021 2:18 PM CDT Would recommend getting done sooner given symptoms; can get done somewhere else if needed. * Trixie Castillo MA - 09/03/2021 2:09 PM CDT Appt is scheduled for 09/13/21 tn * Sanjeev Webster DO - 09/03/2021 2:02 PM CDT We ordered an ultrasound to further evaluate this, has pt obtained this or scheduled it yet? * Adrianne Elizabeth - 09/03/2021 1:58 PM CDT Patient is calling in following up from her visit on 08/29, Patient states that she still has her stomach pain, states that we put her on thyroid medication. States that the pain comes and goes, sometimes it feels like a knife is stabbing her and the pain is a 10, other times it is not as bad and it is a 4 she states. She is taking hydrocodone for the pain right now and states that sometimes that does not help. documented in this encounter Plan of Treatment Upcoming Encounters Date Type Department Care Team (Late st Contact Info) Description 04/14/2024 2:00 PM SENIOR WIND ENERGY CONSULTANT Office Visit [facility] [address] [facility], [address] [place] [address] Julio Pulido MD 3 [place] [address] Scheduled Orders Name Type Priority Associated Diagnoses Orde r Schedule US ABD LIMITED Ultrasound Routine RUQ pain Expected: 09/03/2021, Expires: 09/03/2022 documented as of this encounter Goals Goal Patient Goal Type Associated Problems Recent Progress Patient-Stated? Author Health - patient able to perform ADLs independently General On track(2023 9:49 AM CDT) Dianne Corona, RN Note: 12/17/23: Patient stated she is independent with ASL's. Establish Plan for Symptom Monitoring-CHF General On track(2023 11:36 AM SENIOR WIND ENERGY CONSULTANT) Dianne Corona, RN Note: Patient [...] Monitoring-COPD General On track(2023 11:36 AM SENIOR WIND ENERGY CONSULTANT) Dianne Corona, RN Note: Patient [...] Monitoring-DM General On track(2023 4:33 PM SENIOR WIND ENERGY CONSULTANT) Dianne Corona RN Note: Patient [...] Monitoring-HTN General On track(2023 4:33 PM SENIOR WIND ENERGY CONSULTANT) Dianne Corona RN Note: Patient [...] pain- Primary Abdominal pain, right upper quadrant documented in this encounter Additional Health Concerns Assessment Noted Time PHQ-9 Depression Total Score: 0 05/25/19 22 9:23 AM CDT documented as of this encounter Care Teams Casing Sewer Relationship Specialty Start Date End Date Sanjeev Webster DO [address] [place] [address] PCP - General FAMILY PRACTICE 09/25/20 Dianne Johnson, RN [address] [place] [address] Rechecker (Ambulatory) REGISTERED NURSE 08/14/20 documented as of this encounter
--- OUTSIDE RECORDS SUMMARY | 2024-03-15 01:07 | XMS_ITS | Encounter Summary ---
Author Organization [facility] Address [facility] [place] [address] [place] [address] Care Team Providers Care Safety Clothing And Equipment Developer Name Role Phone Dianne Johnson RN Unavailable [phone] Sanjeev Webster DO Primary Care Provider + Reason for Visit * Reason Onset Date Comments Follow Up Call 08/12/2021 Encounter Details Date Type Department Care Team (Late st Contact Info) Description 08/12/2021 Telephone [facility] Family & Internal Medicine [place] [id number] [place] [address] Sanjeev Webster DO [facility] [place] [address] Follow Up Call Social History [...] of this encounter Progress Notes * Trixie Castillo MA - 08/14/2021 8:03 AM CDTAddended by: TRIXIE CASTILLO on: 08/14/2021 08:03 AM Modules accepted: Orders * Trixie Castillo MA - 08/14/2021 8:03 AM CDT Patient contacted. Agreed to medication and advise. Rx sent tn * Sanjeev Webster DO - 08/13/2021 10:15 PM CDT Can do rosuvastatin 5 mg. Will discuss rechecking brain imaging at next OV. * Dianne Johnson RN - 08/12/2021 10:35 AM CDT Patient held Atorvastatin since 07/31/21 and no longer has leg pain or cramps. Requesting recommendations. FYI: Scheduled f/u appointment for 09/13/21. Patient stated she has a small spot on brain PCP is keeping track of. She wants to know if any further testing needs to be done. Did not see anything in Epic. Please advise. Thank you. documented in this encounter Plan of Treatment Upcoming Encounters Date Type Department Care Team (Late st Contact Info) Description 04/14/2024 2:00 PM STEAM FRAME OPERATOR Office Visit [facility] Multispecialty Care - [facility] 3 [facility], [address] [place] [address] Julio Pulido MD [address] [place] [address] documented as of this encounter Goals Goal Patient Goal Type Associated Problems Recent Progress Patient-Stated? Author Health - patient able to perform ADLs independently General On track(2023 9:49 AM CDT) Dianne Corona RN Note: 12/17/23: Patient stated she is independent with ASL's. Establish Plan for Symptom Monitoring-CHF General On track(2023 11:36 AM STEAM FRAME OPERATOR) Dianne Corona RN Note: Patient will [...] Symptom Monitoring-COPD General On track(2023 11:36 AM STEAM FRAME OPERATOR) Dianne Corona, RN Note: Patient will [...] Symptom Monitoring-DM General On track(2023 4:33 PM STEAM FRAME OPERATOR) Dianne Corona RN Note: Patient will [...] Symptom Monitoring-HTN General On track(2023 4:33 PM STEAM FRAME OPERATOR) Dianne Corona RN Note: Patient will monitor B/P several times per week , record readings and report to physician or CC if B/P consistently >130/80 Take your medications as prescribed. Follow up with your provider as scheduled. Take your blood pressure at least several times a week if able. documented as of this encounter Visit Diagnoses Diagnosis Hyperlipidemia, unspecified hyperlipidemia type- Primary documented in this encounter Additional Health Concerns Assessment Noted Time PHQ-9 Depression Total Score: 0 05/25/19 22 9:23 AM CDT documented as of this encounter Care Teams Safety Clothing And Equipment Developer Relationship Specialty Start Date End Date Sanjeev Webster DO [address] [place] [address] PCP - General FAMILY PRACTICE 09/25/20 Dianne Johnson, RN [address] [place] [address] Mineral Technologist (Ambulatory) REGISTERED NURSE 08/14/20 documented as of this encounter
--- OUTSIDE RECORDS SUMMARY | 2024-03-15 01:07 | XMS_ITS | Encounter Summary ---
Author Organization [facility] Address [facility]. [place], [place] [address] [place] [id number] Care Team Providers Care Route Relief Driver Name Role Phone Dianne Johnson RN Unavailable [phone] Sanjeev Webster DO Primary Care Provider + Reason for Referral * Consultation (Urgent) - Closed Specialty Diagnoses / Procedures Referred By Ian t Referred To Contact NEUROLOGY Diagnoses Transient alteration of awareness Sanjeev Webster DO [address] [place] [address] Phone: tel: fax: Gracy Shore MD Phone: tel: fax: Referral ID Status Reason Start Date Expiration Date V isits Requested Visits Authorized [id number] Closed Specialty Services 07/01/2021 07/01/2022 6 6 Reason for Visit * Reason Comments Follow Up Encounter Details Date Type Department Care Team (Late st Contact Info) Description 05/24/2021 9:20 AM CDT Office Visit [facility] Family & Internal Medicine [facility] [address] [place] [address] Sanjeev Webster DO [address] [place] [address] Follow Up Social History Tobacco Use Types [...] Sign Reading Time Taken Comments Blood Pressure 138/66 05/24/2021 9:25 AM CDT Pulse 70 05/24/2021 9:25 AM CDT Temperature 36.9 ??C (98.4 ??F) 05/24/2021 9:25 AM CD T Respiratory Rate 16 05/24/2021 9:25 AM CDT Oxygen Saturation 97% 05/24/2021 9:25 AM CDT Inhaled Oxygen Concentration - - Weight 85.7 kg (189 lb) 05/24/2021 9:25 AM CDT Height 162.6 cm (5' 4 ) 05/24/2021 9:25 AM CDT Body Mass Index 32.44 05/24/2021 9:25 AM CDT documented in this encounter Progress Notes * Sanjeev Webster, DO - 05/24/2021 9:20 AM CDT Images from the original note were not included. GENERAL OFFICE VISIT Encounter Date: 05/24/2021 Chief Complaint: 76-year-old female presents for Follow Up HPI: Pt presents for follow-up. Pt called office on 05/16/21 to state she thought she may have had a stroke. She was recommended togo to ER by staff. She did not do so. Pt states that she was at [employer]. She states sheput her head on the steering wheel, kept repeatedly doing this, and would laugh at her. She states her sister, Shannon, then called her and came and picked her up. Pt did not go to the hospital after this occurred. Pt does take hydrocodone and alprazolam and may have taken them together that day. She does not use either of these drugs frequently. She is at her baseline today with no new deficits. Patient has Type??2??Diabetes. ??Patient has had diabetes for multiple??years. ??Medications include none specifically for lowering blood sugars. ?BS logs range: doesn't check. Pt has neuropathy and PVD, both of which are stable. Pt is on gabapentin for neuropathy. Office Visit on 05/24/2021 Component Date Value Ref Range Status ??? HGB A1C 05/24/2021 6.5 % Final ??? PTH 05/24/2021 207.9* 18.4 - 80.1 PG/ML Final ??? TSH 05/24/2021 1.785 0.358 - 3.740 uIU/ML Final ??? SODIUM 05/24/2021 143 136 - 145 MMOL/L Final ??? POTASSIUM 05/24/2021 4.6 3.5 - 5.1 MMOL/L Final ??? CHLORIDE S/P/B 05/24/2021 107 98 - 107 MMOL/L Final ??? CO2 05/24/2021 28.7 21 - 32 MMOL/L Final ??? GLUCOSE 05/24/2021 122* 70 - 99 MG/DL Final ??? BUN 05/24/2021 22 6 - 24 MG/DL Final ??? CREATININE S/P/B 05/24/2021 1.49* 0.55 - 1.02 MG/DL Final ??? CALCIUM 05/24/2021 10.9* 8.4 - 10.5 MG/DL Final ??? BILIRUBIN TOTAL S/P/B 05/24/2021 0.6 0.2 - 1.0 MG/DL Final ??? ALKALINE PHOSPHATASE S/P/B 05/24/2021 65 55 - 142 U/L Final ??? AST 05/24/2021 13* 15 - 37 U/L Final ??? ALT 05/24/2021 11* 14 - 59 U/L Final ??? TOTAL PROTEIN S/P/B 05/24/2021 6.7 6.4 - 8.2 G/DL Final ??? ALBUMIN S/P/B 05/24/2021 3.6 3.4 - 5.0 G/DL Final ??? ANION GAP 05/24/2021 7.3 5 - 15 MMOL/L Final REFERENCE RANGE NOT ESTABLISHED ??? OSMOLALITY (CALC) 05/24/2021 301 MOSM/KG Final REFERENCE RANGE NOT ESTABLISHED ? ? eGFR Non-Afr. Amer. 05/24/2021 34* >90 ML/MIN/1.73 M2 Final ? ? eGFR Afr. Amer. 05/24/2021 39* >90 ML/MIN/1.73 M2 Final ??? GFR NOTES 05/24/2021 Final Value:THE ESTIMATED GFR IS CALCULATED USING THE 2009 CKD-EPI EQUATION. THE FOLLOWING CATEGORIES FOR GRADING RENAL FUNCTION ARE RECOMMENDED BY THE INTERNATIONAL SOCIETY OF NEPHROLOGY (KDIGO 2012 CLINICAL PRACTICE GUIDELINE). Comment: G1,NORMAL OR HIGH: >89 ml/min/1.73 m2 G2,MILDLY DECREASED: 60-89 ml/min/1.73 m2 G3A,MILDLY TO MODERATELY DECREASED: 45-59 ml/min/1.73 m2 G3B,MODERATELY TO SEVERELY DECREASED: 30-44 ml/min/1.73 m2 G4,SEVERELY DECREASED: 15-29 ml/min/1.73 m2 G5,KIDNEY FAILURE: <15 ml/min/1.73 m2 ??? WBC 05/24/2021 5.2 4.0 - 10.8 x10'3/uL Final ??? RBC 05/24/2021 3.70* 4.10 - 5.40 x10'6/uL Final ??? HGB 05/24/2021 12.0 12.0 - 16.0 G/DL Final ??? HCT 05/24/2021 38.2 36.0 - 47.0 % Final ??? MCV 05/24/2021 103.2* 78.0 - 100.0 FL Final ??? MCH 05/24/2021 32.4* 27.0 - 31.0 PG Final ??? MCHC 05/24/2021 31.4* 33.0 - 36.0 G/DL Final ??? RDW 05/24/2021 12.3 11.5 - 14.5 % Final ??? PLT 05/24/2021 271 150 - 350 x10'3/uL Final ??? MPV 05/24/2021 12.8* 7.4 - 10.4 FL Final ??? DIFFERENTIAL TYPE 05/24/2021 AUTOMATED DIFFERENTIAL Final ??? NEUTROPHILS 05/24/2021 65.5 % Final ??? LYMPHOCYTES 05/24/2021 21.7 % Final ??? MONOCYTES 05/24/2021 9.9 % Final ??? EOSINOPHILS 05/24/2021 1.9 % Final ??? BASOPHILS 05/24/2021 1.0 % Final ??? IMMATURE GRANS 05/24/2021 0.0 % Final ??? ABS. NEUTROPHILS 05/24/2021 3.39 1.60 - 8.30 x10'3/uL Final ??? ABS. LYMPHOCYTES 05/24/2021 1.12 0.80 - 4.70 x10'3/uL Final ??? ABS. MONOCYTES 05/24/2021 0.51 0.00 - 1.50 x10'3/uL Final ??? ABS. EOSINOPHILS 05/24/2021 0.10 0.00 - 0.40 x10'3/uL Final ??? ABS. BASOPHILS 05/24/2021 0.05 0.00 - 0.20 x10'3/uL Final ??? ABS. IMMATURE GRANULOCYTES 05/24/2021 0.00 0.00 - 0.03 x10'3/uL Final ??? Protime 05/24/2021 15.2* 9.3 - 11.6 SEC Final ??? INR 05/24/2021 1.5* 0.9 - 1.1 Final Comment: TREATMENT OR PROPHYLAXIS AGAINST: THERAPEUTIC RANGE (INR): VENOUS THROMBOSIS 2.0-3.0 PULMONARY EMBOLUS 2.0-3.0 MECHANICAL PROSTHETIC VALVES 2.5-3.5 Review of Systems Constitutional: Negative for fever. Respiratory: Negative for shortness of breath. Cardiovascular: Negative for chest pain. Neurological: See HPI Patient Active Problem List Diagnosis ??? Abnormal stress test ??? Bradycardia ??? Chronic anticoagulation ??? Coronary artery disease involving [place] coronary artery of [place] heart without angina pectoris ??? Diabetes mellitus [...] diabetes mellitus (CMS/HCC) ??? On amiodarone therapy Past Medical History: Diagnosis Date ??? Aneurysm [...] Age of Onset ??? Heart Father ??? Heart Mother Social History Socioeconomic [...] file Intimate Partner Violence: Not on file Immunization History Administered Date(s) Administered ? ? Fluzone High Dose - >Age 65 (Prefilled Syringe) 12/03/2017, 12/13/2018, 02/27/2020, 12/13/2020 ??? Influenza 02/26/2012, 12/02/2012, 11/30/2013, 12/23/2013, 12/27/2014 ??? Influenza Adult (Generic) 02/26/2012, 11/30/2013, 12/07/2014, 12/25/2016, 12/03/2017, 12/13/2018 ??? PFIZER COVID-19 (ORIGINAL FORMULATION, PURPLE CAP), MRNA, LNP-S, PF, 30 MCG/0.3 ML DOSE 05/10/2020, 06/01/2020, 02/23/2021 ??? Pneumococcal (Pneumovax 23) 03/30/2017 ??? Pneumococcal (Prevnar 13) 06/15/2015 ??? Td 07/22/2014 ??? Td (Generic) 07/22/2014 ??? Td (TDVAX) 07/22/2014 ??? Tdap (Boostrix) 09/05/2020 ??? Tdap (Generic) 06/05/2016, 09/05/2020 ??? Tetanus/Diptheria 07/22/2014 ??? Zoster (Zostavax) 79091 Unt/0.65Ml 12/25/2015 Current Outpatient Medications Medication Sig [...] mg total) by mouth see administration instructions. Azat8ax tablet on , fridays and mondays 270 [...] (10 mg total) by mouth daily. ??? azelastine (AZELASTINE) 0.1 % nasal spray 1 spray by Nasal route 2 (two) times daily. Use in each nostril as directed ??? Blood Glucose Monitoring Suppl (CipherCloud ULTRA 2) w/Device Kit Use daily as directed ??? Cholecalciferol (VITAMIN D3) 25 MCG (1000 UT) Cap Take 1,000 Units by mouth daily. ??? CONTOUR NEXT TEST test strip USE 1 STRIP TO CHECK GLUCOSE THREE TIMES DAILY ??? FEROSUL 325 (65 Fe) MG tablet Take 1 tablet (325 mg total) by mouth daily. ??? fluticasone propionate 50 MCG/ACT nasal spray 2 sprays by Nasal route daily. ??? gabapentin 300 MG capsule Take 1 capsule (300 mg total) by mouth 2 (two) times daily. ??? Glucose Blood test strip 1 strip by Other route daily as needed. ??? HYDROcodone-acetaminophen 10-325 MG tablet Take 1 tablet by mouth every 6 (six) hours as neededfor Pain. Indications: Chronic Pain Please call office regarding refills at earliest convenience. ??? Lancets Misc Test daily as directed ??? lidocaine 5 % Apply pain patch to affected area. Change after 12 hours. ??? LISINOPRIL 40 MG tablet Take 1 tablet by mouth once daily ??? omeprazole 20 MG capsule Take 1 capsule (20 mg total) by mouth daily. ??? oxymetazoline 0.05 % nasal spray Not to exceed 3 days. May use for 3 days then refrain for 3 days and repeat as needed. ??? venlafaxine XR 150 MG 24 hr capsule Take 1 capsule (150 mg total) by mouth daily. ??? warfarin 1 MG tablet Take 3 tablets (3 mg total) by mouth see administration instructions. [id number] tablet on , fridays and mondays ??? warfarin 6 MG tablet Take 1 tablet (6 mg total) by mouth daily. (Patient taking differently: 9 mg on Mondays and 6 mg the other days) No current facility-administered medications on file prior to visit. Allergies Allergen Reactions ??? Tape Contact Dermatitis ??? Bacitracin Other (see comment) ??? Benzalkonium Other (see comment) ??? Gramicidin Other (see comment) ??? Hydrocortisone Other (see comment) ??? Neomycin Other (see comment) ??? Polymyxin B Other (see comment) Objective: Filed Vitals: 05/24/21 0925 BP: 138/66 Pulse: 70 Resp: 16 Temp: 98.4 ??F (36.9 ??C) TempSrc: Skin SpO2: 97% Weight: 85.7 kg (189 lb) Height: 5' 4 (1.626 m) Physical Exam [...] Diagnoses and all orders for this visit: Transient alteration of awareness - CBC W/DIFF AUTOMATED; Future - Ambulatory referral to Neurology ([facility]) - CBC W/DIFF AUTOMATED Type 2 diabetes mellitus with diabetic peripheral angiopathy without gangrene, without long-term current use of insulin ([facility]) - A1C (BACK OFFICE) - COLLECT.CAPILLARY (FNGR,HEEL,EAR) - CBC W/DIFF AUTOMATED; Future - COMPREHENSIVE METABOLIC PANEL; Future - TSH W/REFLEX; Future - VENIPUNC ARM DRAW - TSH W/REFLEX - COMPREHENSIVE METABOLIC PANEL - CBC W/DIFF AUTOMATED Elevated parathyroid hormone - CBC W/DIFF AUTOMATED; Future - VENIPUNC ARM DRAW - PTH - INTACT; Future - PTH - INTACT - CBC W/DIFF AUTOMATED Paroxysmal atrial flutter ([facility]) - CBC W/DIFF AUTOMATED; Future - VENIPUNC ARM DRAW - PROTIME/INR, VENOUS; Future - CBC W/DIFF AUTOMATED - PROTIME/INR, VENOUS Hypertensive heart disease with congestive heart failure, unspecified heart failure type ([facility]) - furosemide 20 MG tablet; Take 1 tab every other day. Discussion/Summary: Pt had alteration of awareness, medication side effect vs. Neurological abnormality. Pt is poor historian. Will attempt to obtain additional information from outside sources and refer to neuro. Informed not to take alprazolam and hydrocodone concurrently or to use either while driving. Will order labs as per above, including recheck parathyroid abnormalities. Will have pt f/u in 1 month or soonerdepending upon work-up. Pt v/u. I spent 40 minutes today reviewing the patient's medical record, obtaining history, performing an exam, ordering medications, tests, and/or procedures, documenting in the medical record, referring and/or communicating with other health care providers, counseling and educating the patient/family/caregiver and coordination of care. Sanjeev Webster DO documented in this encounter Plan of Treatment Upcoming Encounters Date Type Department Care Team (Late st Contact Info) Description 04/14/2024 2:00 PM RANCH HAND SUPERVISOR Office Visit [facility] Multispecialty Care - [facility] [address], [address] [place] [address] Julio Pulido MD [address] [place] [address] Scheduled Referrals Name Type Priority Associated Diagnoses Orde r Schedule Ambulatory referral to Neurology ([facility]) Referral Routine Transient alteration of awareness Ordered: 05/24/2021 documented as of this encounter Goals Goal Patient Goal Type Associated Problems Recent Progress Patient-Stated? Author Health - patient able to perform ADLs independently General On track(2023 9:49 AM CDT) Dianne Corona RN Note: 12/17/23: Patient stated she is independent with ASL's. Establish Plan for Symptom Monitoring-CHF General On track(2023 11:36 AM RANCH HAND SUPERVISOR) Dianne Corona, RN Note: Patient will [...] Symptom Monitoring-COPD General On track(2023 11:36 AM RANCH HAND SUPERVISOR) Dianne Corona, RN Note: Patient will [...] Symptom Monitoring-DM General On track(2023 4:33 PM RANCH HAND SUPERVISOR) Dianne Corona RN Note: Patient will [...] Symptom Monitoring-HTN General On track(2023 4:33 PM RANCH HAND SUPERVISOR) Dianne Corona, DALE Note: Patient will monitor B/P several times per week , record readings and report to physician or CC if B/P consistently >130/80 Take your medications as prescribed. Follow up with your provider as scheduled. Take your blood pressure at least several times a week if able. documented as of this encounter Procedures Procedure Name Priority Date/Time Associated Diagnosis Comments TSH W/REFLEX Routine 05/24/2021 10:13 AM CDT Type 2 diabetes mellitus with diabetic peripheral angiopathy without gangrene, without long-term current use of insulin ([facility]) PTH - INTACT Routine 05/24/2021 10:13 AM CDT Elevated parathyroid hormone PROTHROMBIN TIME, VENOUS Routine 05/24/2021 10:13 AM CDT Paroxysmal atrial flutter ([facility]) COMPREHENSIVE METABOLIC PANEL Routine 05/24/2021 10:13 AM CDT Type 2 diabetes mellitus with diabetic peripheral angiopathy without gangrene, without long-term current use of insulin ([facility]) CBC W/DIFF AUTOMATED Routine 05/24/2021 10:13 AM CDT Type 2 diabetes mellitus with diabetic peripheral angiopathy without gangrene, without long-term current use of insulin ([facility] HHS/HCC) Elevated parathyroid hormone Paroxysmal atrial flutter ([facility] HHS/HCC) Transient alteration of awareness COLLECTION VENOUS BLOOD VENIPUNCTURE Routine 05/24/2021 9:55 AM CDT Type 2 diabetes mellitus with diabetic peripheral angiopathy without gangrene, without long-term current use of insulin ([facility] HHS/HCC) Elevated parathyroid hormone Paroxysmal atrial flutter ([facility] HHS/HCC) COLLECT.CAPILLARY (FNGR,HEEL,EAR) Routine 05/24/2021 9:16 AM CDT Type 2 diabetes mellitus with diabetic peripheral angiopathy without gangrene, without long-term current use of insulin ([facility] HHS/HCC) HEMOGLOBIN, GLYCOSYLATED Routine 05/24/2021 Type 2 diabetes mellitus with diabetic peripheral angiopathy without gangrene, without long-term current use of insulin ([facility]) documented in this encounter Results * (ABNORMAL) PROTIME/INR, VENOUS (05/24/2021 10:13 AM CDT) Pathologist [facility] PROTIME 15.2(H) 9.3 - 11.6 SEC 05/24/2021 3:22 PM CDT [facility] INR 1.5(H) 0.9 - 1.1 05/24/2021 3:22 PM CDT [facility] Comment: TREATMENT OR PROPHYLAXIS AGAINST: ?? THERAPEUTIC RANGE (INR): ?VENOUS THROMBOSIS ? 2.0-3.0 ?PULMONARY EMBOLUS ? 2.0-3.0 ?? MECHANICAL PROSTHETIC VALVES ? 2.5-3.5 05/24/2021 10:1 3 AM CDT Sanjeev Webster DO LABORATORY Final Re sult Performing Organization Address City/[facility]/ZIP Co de Phone Number [facility] [address] [place] [address], [place] [phone] * (ABNORMAL) PTH - INTACT (05/24/2021 10:13 AM CDT) PTH 207.9(H) 18.4 - 80.1 PG/ML 05/24/2021 9:54 PM CDT [facility] 05/24/2021 10:1 3 AM CDT Sanjeev Webster DO LABORATORY Final Re sult Performing Organization Address [facility] Co de Phone Number [facility] [address] [place] [address], [place] [phone] * TSH W/REFLEX (05/24/2021 10:13 AM CDT) TSH 1.785 0.358 - 3.740 uIU/ML 05/24/2021 5:14 PM CDT [facility] 05/24/2021 10:1 3 AM CDT Sanjeev Edward Webster DO LABORATORY Final Re sult Performing Organization Address [facility]/ZIP Co de Phone Number [facility] [address] [place] [address], [place] [phone] * (ABNORMAL) COMPREHENSIVE METABOLIC PANEL (05/24/2021 10:13 AM CDT) SODIUM S/P/B 143 136 - 145 MMOL/L 05/24/2021 5:14 PM CDT [facility] POTASSIUM S/P/B 4.6 3.5 - 5.1 MMOL/L 05/24/2021 5:14 PM CDT [facility] CHLORIDE S/P/B 107 98 - 107 MMOL/L 05/24/2021 5:14 PM CDT [facility] CO2 28.7 21 - 32 MMOL/L 05/24/2021 5:14 PM T [facility] GLUCOSE 122(H) 70 - 99 MG/DL 05/24/2021 5:14 PM CDT [facility] BUN 22 6 - 24 MG/DL 05/24/2021 5:14 PM CDT [facility] CREATININE S/P/B 1.49(H) 0.55 - 1.02 MG/DL 05/24/2021 5:14 PM CDT [facility] CALCIUM S/P/B 10.9(H) 8.4 - 10.5 MG/DL 05/24/2021 5:14 PM CDT [facility] BILIRUBIN TOTAL S/P/B 0.6 0.2 - 1.0 MG/DL 05/24/2021 5:14 PM CDT [facility] ALKALINE PHOSPHATASE S/P/B 65 55 - 142 U/L 05/24/2021 5:14 PM CDT [facility] AST 13(L) 15 - 37 U/L 05/24/2021 5:14 PM CDT [facility] ALT 11(L) 14 - 59 U/L 05/24/2021 5:14 PM CDT [facility] TOTAL PROTEIN S/P/B 6.7 6.4 - 8.2 G/DL 05/24/2021 5:14 PM CDT [facility] ALBUMIN S/P/B 3.6 3.4 - 5.0 G/DL 05/24/2021 5:14 PM CDT [facility] ANION GAP 7.3 5 - 15 MMOL/L 05/24/2021 5:14 PM CDT [facility] Comment:REFERENCE RANGE NOT ESTABLISHED OSMOLALITY (CALC) 301 MOSM/KG 05/24/2021 5:14 PM CDT [facility] Comment:REFERENCE RANGE NOT ESTABLISHED EGFR NON-AFR. AMER. 34(L) >90 ML/MIN/1 .73 M2 05/24/2021 5:14 PM CDT [facility] EGFR AFR. AMER. 39(L) >90 ML/MIN/1 .73 M2 05/24/2021 5:14 PM CDT [facility] GFR NOTES THE ESTIMATED GFR IS CALCULATED USING THE 2009 CKD-EPI EQUATION. THE FOLLOWING CATEGORIES FOR GRADING RENAL FUNCTION ARE RECOMMENDED BY THE INTERNATIONAL SOCIETY OF NEPHROLOGY (KDIGO 2012 CLINICAL PRACTICE GUIDELINE). 05/24/2021 5:14 PM CDT [facility] Comment: G1,NORMAL OR HIGH: >89 ml/min/1.73 m2 G2,MILDLY DECREASED: 60-89 ml/min/1.73 m2 G3A,MILDLY TO MODERATELY DECREASED: 45-59 ml/min/1.73 m2 G3B,MODERATELY TO SEVERELY DECREASED: 30-44 ml/min/1.73 m2 G4,SEVERELY DECREASED: 15-29 ml/min/1.73 m2 G5,KIDNEY FAILURE: <15 ml/min/1.73 m2 05/24/2021 10:1 3 AM CDT Sanjeev Webster DO LABORATORY Final Re sult [facility] [address] [place] [address], * (ABNORMAL) CBC W/DIFF AUTOMATED (05/24/2021 10:13 AM CDT) WBC 5.2 4.0 - 10.8 x10'3/uL 05/24/2021 5:08 PM CDT [facility] RBC 3.70(L) 4.10 - 5.40 x10'6/uL 05/24/2021 5:08 PM CDT [facility] HGB 12.0 12.0 - 16.0 G/DL 05/24/2021 5:08 PM CDT [facility] HCT 38.2 36.0 - 47.0 % 05/24/2021 5:08 PM CDT [facility] MCV 103.2(H) 78.0 - 100.0 FL 05/24/2021 5:08 PM CDT [facility] MCH 32.4(H) 27.0 - 31.0 PG 05/24/2021 5:08 PM CDT [facility] MCHC 31.4(L) 33.0 - 36.0 G/DL 05/24/2021 5:08 PM CDT [facility] RDW 12.3 11.5 - 14.5 % 05/24/2021 5:08 PM CDT [facility] PLT 271 150 - 350 x10'3/uL 05/24/2021 5:08 PM CDT [facility] MPV 12.8(H) 7.4 - 10.4 FL 05/24/2021 5:08 PM CDT [facility] DIFFERENTIAL TYPE AUTOMATED DIFFERENTIAL 05/24/2021 5:08 PM CDT [facility] NEUTROPHILS % 65.5 % 05/24/2021 5:08 PM CDT [facility] LYMPHOCYTES % 21.7 % 05/24/2021 5:08 PM CDT [facility] MONOCYTES % 9.9 % 05/24/2021 5:08 PM CDT [facility] EOSINOPHILS % 1.9 % 05/24/2021 5:08 PM CDT [facility] BASOPHILS % 1.0 % 05/24/2021 5:08 PM CDT [facility] IMMATURE GRANS % 0.0 % 05/24/2021 5:08 PM CDT [facility] ABS. NEUTROPHILS 3.39 1.60 - 8.30 x10'3/uL 05/24/2021 5:08 PM CDT [facility] ABS. LYMPHOCYTES 1.12 0.80 - 4.70 x10'3/uL 05/24/2021 5:08 PM CDT [facility] ABS. MONOCYTES 0.51 0.00 - 1.50 x10'3/uL 05/24/2021 5:08 PM CDT [facility] ABS. EOSINOPHILS 0.10 0.00 - 0.40 x10'3/uL 05/24/2021 5:08 PM CDT [facility] ABS. BASOPHILS 0.05 0.00 - 0.20 x10'3/uL 05/24/2021 5:08 PM CDT [facility] ABS. IMMATURE GRANULOCYTES 0.00 0.00 - 0.03 x10'3/uL 05/24/2021 5:08 PM CDT [facility] 05/24/2021 10:1 3 AM CDT Sanjeev Webster DO LABORATORY Final Re sult [facility] [address] [place] [address], * A1C (BACK OFFICE) (05/24/2021) HGB A1C 6.5 % [facility] 05/24/2021 Sanjeev Webster DO LABORATORY Final Re sult [facility] [address] [place] [address], documented in this encounter Visit Diagnoses Diagnosis Transient alteration of awareness- Primary Type 2 diabetes mellitus with diabetic peripheral angiopathy without gangrene, without long-term current use of insulin ([facility]) Elevated parathyroid hormone Unspecified endocrine disorder Paroxysmal atrial flutter ([facility]) Atrial flutter Hypertensive heart disease with congestive heart failure, unspecified heart failure type ([facility]) documented in this encounter Additional Health Concerns Assessment Noted Time PHQ-9 Depression Total Score: 0 05/25/19 22 9:23 AM CDT documented as of this encounter Care Teams Route Relief Driver Relationship Specialty Start Date End Date Sanjeev Webster DO [address] [place] [id number] PCP - General FAMILY PRACTICE 09/25/20 Dianne Johnson, RN [address] [place] [address] Composition Professor (Ambulatory) REGISTERED NURSE 08/14/20 documented as of this encounter
--- OUTSIDE RECORDS SUMMARY | 2024-03-15 01:07 | XMS_ITS | Encounter Summary ---
Author Organization [facility] Address [facility]6 [facility] [place] [address] [place] [address] Care Team Providers Care Message And Delivery Service Pricer Name Role Phone Dianne Johnson RN Unavailable [phone] Sanjeev Webster DO Primary Care Provider + Encounter Details Date Type Department Care Team (Latest Contact Info) Description 08/29/2021 - 08/29/2021 11:59 PM CDT Hospital Encounter [facility] [address] [place] [address] Sanjeev Webster DO [address] [place] [address] Discharge Disposition: Home or Self [...] Chronic obstructive pulmonary disease, unspecified COPD type ([facility]) Inhale 2 puffs into the lungs [...] gangrene, without long-term current use of insulin ([facility]) Use daily as directed 1 kit 1 [...] congestive heart failure, unspecified heart failure type ([facility]) Take 1 tab every other day. 90 tablet 1 2 10/22/19 22 gabapentin 300 MG capsuleIndications: Back pain Take 1 capsule (300 mg total) by mouth 2 (two) times daily. 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, without long-term current use of insulin ([facility]) 1 strip by Other route daily as [...] gangrene, without long-term current use of insulin ([facility]) Test daily as directed 100 each 1 1 10/16/19 22 lidocaine 5 %Indications:Neck pain Apply pain patch to affected area. Change after 12 hours. 6 patch 1 03/21/19 23 LISINOPRIL 40 MG tabletIndications:H ypertensive urgency Take 1 tablet by mouth once daily 90 tablet 1 2 11/06/19 22 OMEPRAZOLE 20 [...] polyneuropathy associated with type 2 diabetes mellitus ([facility]/HCC),Mild episode of recurrent major depressive disorder (CMS/HCC) [...] daily. 90 tablet 1 1 09/27/19 22 documented as of this encounter Plan of Treatment Upcoming Encounters Date Type Department Care Team (Late st Contact Info) Description 04/14/2024 2:00 PM BUSINESS LAW PROFESSOR Office Visit [facility] Medical Group Multispecialty Care - [facility] 3 [facility], [address] [place] [address] Julio Pulido MD 3 [place] [address] documented as of this encounter Goals Goal Patient Goal Type Associated Problems Recent Progress Patient-Stated? Author Health - patient able to perform ADLs independently General On track(2023 9:49 AM CDT) Dianne Corona, RN Note: 12/17/23: Patient stated she is independent with ASL's. Establish Plan for Symptom Monitoring-CHF General On track(2023 11:36 AM BUSINESS LAW PROFESSOR) Dianne Corona, RN Note: Patient will recognize [...] Monitoring-COPD General On track(2023 11:36 AM BUSINESS LAW PROFESSOR) Dianne Corona RN Note: Patient will [...] Monitoring-DM General On track(2023 4:33 PM BUSINESS LAW PROFESSOR) Dianne Corona RN Note: Patient will [...] Monitoring-HTN General On track(2023 4:33 PM BUSINESS LAW PROFESSOR) Dianne Corona RN Note: Patient will [...] documented as of this encounter Care Teams Message And Delivery Service Pricer Relationship Specialty Start Date End Date Sanjeev Webster DO [address] [place] [address] PCP - General FAMILY PRACTICE 09/25/20 Dianne Johnson, RN [address] [place] [address] Revenue Coordinator (Ambulatory) REGISTERED NURSE 08/14/20 documented as of this encounter
--- OUTSIDE RECORDS SUMMARY | 2024-03-15 01:07 | XMS_ITS | Encounter Summary ---
Author Organization [facility] Address [facility] [place] [address] [place] [address] Care Team Providers Care Dry Cleaner Name Role Phone Dianne Johnson RN Unavailable [phone] Sanjeev Webster DO Primary Care Provider + Encounter Details Date Type Department Care Team (Latest Contact Info) Description 07/08/2021 Scan HEALTH INFO SRVCS Scanned, Documents Social [...] st Contact Info) Description 04/14/2024 2:00 PM ARTILLERY OR NAVAL GUNFIRE OBSERVER Office Visit [facility] Medical Group Multispecialty Care - [address], [address] [place] [address] Julio Pulido MD 3 [place] [address] documented as of this encounter Goals Goal Patient Goal Type Associated Problems Recent Progress Patient-Stated? Author Health - patient able to perform ADLs independently General On track(2023 9:49 AM CDT) Dianne Corona RN Note: 12/17/23: Patient stated she is independent with ASL's. Establish Plan for Symptom Monitoring-CHF General On track(2023 11:36 AM ARTILLERY OR NAVAL GUNFIRE OBSERVER) Dianne Corona RN Note: Patient will [...] Symptom Monitoring-COPD General On track(2023 11:36 AM ARTILLERY OR NAVAL GUNFIRE OBSERVER) Dianne Corona RN Note: Patient will [...] Symptom Monitoring-DM General On track(2023 4:33 PM ARTILLERY OR NAVAL GUNFIRE OBSERVER) Dianne Corona RN Note: Patient will [...] Symptom Monitoring-HTN General On track(2023 4:33 PM ARTILLERY OR NAVAL GUNFIRE OBSERVER) Dianne Corona RN Note: Patient will [...] documented as of this encounter Care Teams Dry Cleaner Relationship Specialty Start Date End Date Sanjeev Webster DO [address] [place] [address] PCP - General FAMILY PRACTICE 09/25/20 Dianne Johnson, RN [address] [place] [address] [employer]ot Missile [employer] (Ambulatory) REGISTERED NURSE 08/14/20 documented as of this encounter
--- OUTSIDE RECORDS SUMMARY | 2024-03-15 01:07 | XMS_ITS | Encounter Summary ---
Author Organization [facility] Address [facility]6 [facility] [place] [address] [place] [address] Care Team Providers Care Mine Development Engineer Name Role Phone Dianne Johnson RN Unavailable [phone] Sanjeev Webster DO Primary Care Provider + Reason for Visit * Reason Onset Date Comments Referral 07/04/2021 Encounter Details Date Type Department Care Team (Late st Contact Info) Description 07/04/[address] [facility] Family & Internal Medicine [id number] [place] [address] Sanjeev Webster DO [facility] [place] [address] Referral Social History Tobacco Use [...] as of this encounter Progress Notes * Adrianne Elizabeth - 07/08/2021 4:05 PM CDT Patient called back in, I advised her the following. Patient v/u. * Scarlett Guerrero MA - 07/08/2021 3:59 PM CDT No answer, mail box full 07/08/21 * Sanjeev Webster DO - 07/04/2021 3:27 PM CDT Yes, it will be. * SUHAIL Rosenthal - 07/04/2021 3:08 PM CDT Patient had to reschedule her appointment with the dr. She had a referral for. Her new appointment is oct [address] wolff and his office waned to know if her referral would still be good then. Shewould like a call back documented in this encounter Plan of Treatment Upcoming Encounters Date Type Department Care Team (Late st Contact Info) Description 04/14/2024 2:00 PM BPO SPECIALIST Office Visit [facility] Medical [facility] Multispecialty Care - [facility] 3 [facility], [address] [place] [phone] Julio Pulido MD [address] [place] [address] documented as of this encounter Goals Goal Patient Goal Type Associated Problems Recent Progress Patient-Stated? Author Health - patient able to perform ADLs independently General On track(2023 9:49 AM CDT) Dianne Corona RN Note: 12/17/23: Patient stated she is independent with ASL's. Establish Plan for Symptom Monitoring-CHF General On track(2023 11:36 AM BPO SPECIALIST) Dianne Corona RN Note: Patient will [...] Symptom Monitoring-COPD General On track(2023 11:36 AM BPO SPECIALIST) Dianne Corona RN Note: Patient will [...] Symptom Monitoring-DM General On track(2023 4:33 PM BPO SPECIALIST) Dianne Corona RN Note: Patient will [...] Symptom Monitoring-HTN General On track(2023 4:33 PM BPO SPECIALIST) No Dianne Johnson RN Note: Patient will [...] documented as of this encounter Care Teams Mine Development Engineer Relationship Specialty Start Date End Date Sanjeev Webster DO [address] [place] [address] PCP - General FAMILY PRACTICE 09/25/20 Dianne Johnson, RN [address] [place] [address] Blueberry Grower (Ambulatory) REGISTERED NURSE 08/14/20 documented as of this encounter
--- OUTSIDE RECORDS SUMMARY | 2024-03-15 01:07 | XMS_ITS | Encounter Summary ---
Author Organization [facility] Address [address] [place] [address]. [place] [address] [place] [address] Care Team Providers Care Drywall Sprayer Name Role Phone Dianne Johnson RN Unavailable [phone] Sanjeev Webster DO Primary Care Provider + Encounter Details Date Type Department Care Team (Latest Contact Info) Description 05/24/2021 Travel Social History Tobacco Use Types Packs/Day [...] Contact Info) Description 04/14/2024 2:00 PM AUTOMOBILE LIGHTS ASSEMBLER Office Visit [facility] Medical Group Multispecialty Care - [address], [address] [place] [address] Julio Pulido MD 3 [place] [address] documented as of this encounter Goals Goal Patient Goal Type Associated Problems Recent Progress Patient-Stated? Author Health - patient able to perform ADLs independently General On track(2023 9:49 AM CDT) Dianne Corona RN Note: 12/17/23: Patient stated she is independent with ASL's. Establish Plan for Symptom Monitoring-CHF General On track(2023 11:36 AM AUTOMOBILE LIGHTS ASSEMBLER) Dinane Corona RN Note: Patient will recognize symptoms [...] Monitoring-COPD General On track(2023 11:36 AM AUTOMOBILE LIGHTS ASSEMBLER) Dianne Corona, RN Note: Patient will [...] Monitoring-DM General On track(2023 4:33 PM AUTOMOBILE LIGHTS ASSEMBLER) Dianne Corona RN Note: Patient will [...] Monitoring-HTN General On track(2023 4:33 PM AUTOMOBILE LIGHTS ASSEMBLER) Dianne Corona RN Note: Patient will [...] documented as of this encounter Care Teams Drywall Sprayer Relationship Specialty Start Date End Date Sanjeev Webster DO [address] [place] [address] PCP - General FAMILY PRACTICE 09/25/20 Dianne Johnson RN [address] [place] [address] Senior Test Engineer (Ambulatory) REGISTERED NURSE 08/14/20 documented as of this encounter
--- OUTSIDE RECORDS SUMMARY | 2024-03-15 01:07 | XMS_ITS | Encounter Summary ---
Author Organization [facility] Address [address] [place] [address]. [place] [address] [place] [address] Care Team Providers Care Trestleman Name Role Phone Dianne Johnson RN Unavailable [phone] Sanjeev Webster DO Primary Care Provider + Reason for Referral * Imaging (Routine) - Closed Specialty Diagnoses / Procedures Referred By Ian malagon Referred To Contact RADIOLOGY Diagnoses Thyroid nodule Procedures US THYROID Panda Mares MD Referral ID Status Reason Start Date Expiration Date Visits Re quested Visits Authorized [id number] Closed 07/29/2021 08/29/2022 1 1 Encounter Details Date Type Department Care Team (Late st Contact Info) Description 07/29/2021 Orders Only [facility] Medical Group Diabetes and Endocrinology - [place] [place] [address] Panda Mares MD Social History Tobacco Use Types Packs/Day [...] st Contact Info) Description 04/14/2024 2:00 PM REFERENCE DATA EXPERT Office Visit [facility] Medical Group Multispecialty Care - [facility] 3 [facility], [address] [place] [address] Julio Pulido MD [address] [place] [address] documented as of this encounter Goals Goal Patient Goal Type Associated Problems Recent Progress Patient-Stated? Author Health - patient able to perform ADLs independently General On track(2023 9:49 AM CDT) Dianne Corona, RN Note: 12/17/23: Patient stated she is independent with ASL's. Establish Plan for Symptom Monitoring-CHF General On track(2023 11:36 AM REFERENCE DATA EXPERT) Dianne Corona, RN Note: Patient will recognize [...] Symptom Monitoring-COPD General On track(2023 11:36 AM REFERENCE DATA EXPERT) Dianne Corona, RN Note: Patient will recognize [...] Symptom Monitoring-DM General On track(2023 4:33 PM REFERENCE DATA EXPERT) Dianne Corona RN Note: Patient will [...] Symptom Monitoring-HTN General On track(2023 4:33 PM REFERENCE DATA EXPERT) Dianne Corona RN Note: Patient will monitor B/P several times per week , record readings and report to physician or CC if B/P consistently >130/80 Take your medications as prescribed. Follow up with your provider as scheduled. Take your blood pressure at least several times a week if able. documented as of this encounter Results * US THYROID (07/30/2021 11:26 AM CDT) Anatomical Region Laterality Modality Neck Ultrasound 07/30/2021 11:5 6 PM CDT Impressions 07/30/2021 11:57 PM CDT IMPRESSION: Mild nonspecific thyroid parenchymal heterogeneity without thyromegaly, evident hypervascularity, or discrete thyroid nodule. RECOMMENDATION: Clinical correlation for thyroiditis. Referred By: PANDA MARES Interpreted By: Gerardo Pan MD, 07/30/2021 11:56 PM Narrative 07/30/2021 11:57 PM CDT EXAMINATION: US THYROID INDICATIONS: Thyroid nodule COMPARISON: NONE TECHNIQUE Grayscale and color Doppler ultrasound imaging of the superficial soft tissues of the thyroid gland. FINDINGS: The right lobe of the thyroid gland measures approximately 5.2 x 2.1 x 2.2 cm. The thyroid isthmus measures 5 mm in thickness. The left lobe of the thyroid gland measures approximately 4.6 x 2.1 x 2.2 cm. The thyroid parenchyma demonstrates mildly heterogeneous echogenicity without evident hypervascularity on color Doppler ultrasound. No discrete thyroid nodule. Procedure Note Gerardo Pan MD - 07/30/2021 EXAMINATION: US THYROID INDICATIONS: Thyroid nodule COMPARISON: NONE TECHNIQUE Grayscale and color Doppler ultrasound imaging of thesuperficial soft tissues of the thyroid gland. FINDINGS: The right lobe of the thyroid gland measures approximately 5.2 x 2.1 x 2.2cm. The thyroid isthmus measures 5 mm in thickness. The left lobe of the thyroid gland measures approximately 4.6 x 2.1 x 2.2cm. The thyroid parenchyma demonstrates mildly heterogeneous echogenicitywithout evident hypervascularity on color Doppler ultrasound. No discrete thyroid nodule. IMPRESSION: Mild nonspecific thyroid parenchymal heterogeneity withoutthyromegaly, evident hypervascularity, or discrete thyroid nodule. RECOMMENDATION: Clinical correlation for thyroiditis. Referred By: PANDA MARES Interpreted By: Gerardo Pan MD, 07/30/2021 11:56 PM us Panda Mares MD ULTRASOUND Final Result documented in this encounter Visit Diagnoses Diagnosis Thyroid nodule- Primary Nontoxic uninodular goiter documented in this encounter Additional Health Concerns Assessment Noted Time PHQ-9 Depression Total Score: 0 05/25/19 22 9:23 AM CDT documented as of this encounter Care Teams Trestleman Relationship Specialty Start Date End Date Sanjeev Webster DO [facility]1 [place] [address] PCP - General FAMILY PRACTICE 09/25/20 Dianne Johnson, RN [address] [place] [address] Trip Follower (Ambulatory) REGISTERED NURSE 08/14/20 documented as of this encounter
--- OUTSIDE RECORDS SUMMARY | 2024-03-15 01:07 | XMS_ITS | Encounter Summary ---
Author Organization [facility] Address [address] [place] [address]. [place] [address] [place] [address] Care Team Providers Care Acid Crane Operator Name Role Phone Dianne Johnson RN Unavailable [phone] Sanjeev Webster DO Primary Care Provider + Encounter Details Date Type Department Care Team (Latest Contact Info) Description 09/02/2021 Travel Social History Tobacco Use Types Packs/Day [...] Contact Info) Description 04/14/2024 2:00 PM SALES FACILITATOR Office Visit [facility] Medical Group Multispecialty Care - [address], [address] [place] [address] Julio Pulido MD 3 [place] [address] documented as of this encounter Goals Goal Patient Goal Type Associated Problems Recent Progress Patient-Stated? Author Health - patient able to perform ADLs independently General On track(2023 9:49 AM CDT) Dianne Corona RN Note: 12/17/23: Patient stated she is independent with ASL's. Establish Plan for Symptom Monitoring-CHF General On track(2023 11:36 AM SALES FACILITATOR) Dianne Corona RN Note: Patient will recognize [...] Monitoring-COPD General On track(2023 11:36 AM SALES FACILITATOR) Dianne Corona, RN Note: Patient will recognize [...] Monitoring-DM General On track(2023 4:33 PM SALES FACILITATOR) Dianne Corona RN Note: Patient will manage [...] Monitoring-HTN General On track(2023 4:33 PM SALES FACILITATOR) Dianne Corona RN Note: Patient will monitor [...] documented as of this encounter Care Teams Acid Crane Operator Relationship Specialty Start Date End Date Sanjeev Webster DO [address] [place] [address] PCP - General FAMILY PRACTICE 09/25/20 Dianne Johnson RN [address] [place] [address] Hide House Supervisor (Ambulatory) REGISTERED NURSE 08/14/20 documented as of this encounter
--- OUTSIDE RECORDS SUMMARY | 2024-03-15 01:07 | XMS_ITS | Encounter Summary ---
Author Organization [facility] Address [address] [place] [address]. [place] [address] [place] [address] Care Team Providers Care Production Line Name Role Phone Dianne Johnson RN Unavailable [phone] Sanjeev Webster DO Primary Care Provider + Reason for Visit * Reason Onset Date Comments Returned Call 08/30/2021 Encounter Details Date Type Department Care Team (Late st Contact Info) Description 08/30/2021 Telephone [facility] Medical [facility] [place]ocrin[place] [address] [facility] [place] [address] Panda Moreno MD Returned Call Social History Tobacco Use Types Packs/Day [...] as of this encounter Progress Notes * Rafia Smith LPN - 08/30/2021 8:46 AM CDT Called pt back and about the methimazole and the uptake and scan test md ordered and verified how to take the med- also made sure pt had appt for follow up already in October 03 and she wrote it down * Kristel Cheek - 08/30/2021 8:39 AM CDT Return call Tried nurse line She was advise of lab results from her PCP asking for call back of new med Thank you * Rafia Smith LPN - 08/30/2021 8:31 AM CDT Called pt and left VM to call office back in regards to Results below: New onset hyperthyroidism was noted on her recent blood work I ordered a thyroid uptake : until then , will start low dose methimazole She is allergic to corticosteroids so I will defer from adding them Not on B -lexy: has COPD: will need advise from her analyst sales in this regard documented in this encounter Plan of Treatment Upcoming Encounters Date Type Department Care Team (Late st Contact Info) Description 04/14/2024 2:00 PM COUNTER INTELLIGENCE TECHNICIAN Office Visit [facility] Medical Group Multispecialty Care - [facility] 3 [facility], [address] [place] [phone] Julio Pulido MD 3 [place], [place] [address] documented as of this encounter Goals Goal Patient Goal Type Associated Problems Recent Progress Patient-Stated? Author Health - patient able to perform ADLs independently General On track(2023 9:49 AM CDT) Dianne Corona RN Note: 12/17/23: Patient stated she is independent with ASL's. Establish Plan for Symptom Monitoring-CHF General On track(2023 11:36 AM COUNTER INTELLIGENCE TECHNICIAN) Dianne Corona RN Note: Patient will [...] Monitoring-COPD General On track(2023 11:36 AM COUNTER INTELLIGENCE TECHNICIAN) Dianne Corona RN Note: Patient will [...] Monitoring-DM General On track(2023 4:33 PM COUNTER INTELLIGENCE TECHNICIAN) Dianne Corona RN Note: Patient will [...] Monitoring-HTN General On track(2023 4:33 PM COUNTER INTELLIGENCE TECHNICIAN) Dianne Corona, RN Note: Patient will [...] as of this encounter Care Teams Production Line Relationship Specialty Start Date End Date Sanjeev Webster DO [address] [place] [address] PCP - General FAMILY PRACTICE 09/25/20 Dianne Johnson, RN [address] [place] [address] Canoe Maker (Ambulatory) REGISTERED NURSE 08/14/20 documented as of this encounter
--- OUTSIDE RECORDS SUMMARY | 2024-03-15 01:07 | XMS_ITS | Encounter Summary ---
Author Organization [facility] Address [address] [place] [address]. [place] [address] [place] [address] Care Team Providers Care Energy Audit Advisor Name Role Phone Dianne Johnson RN Unavailable [phone] Sanjeev Webster DO Primary Care Provider + Encounter Details Date Type Department Care Team (Late st Contact Info) Description 07/16/2021 Therapy Plan [facility] Medical Group Diabetes and Endocrinology [place] [address] [place] [address] Panda Moreno MD Social History [...] (Late Contact Info) Description 04/14/2024 2:00 PM GRADES 1 THROUGH 5 TEACHER Office Visit [facility] Medical Group Multispecialty Care - [facility] 3 [facility], [address] [place] [address] Julio Pulido MD 3 [place] [address] documented as of this encounter Goals Goal Patient Goal Type Associated Problems Recent Progress Patient-Stated? Author Health - patient able to perform ADLs independently General On track(2023 9:49 AM CDT) Dianne Corona RN Note: 12/17/23: Patient stated she is independent with ASL's. Establish Plan for Symptom Monitoring-CHF General On track(2023 11:36 AM GRADES 1 THROUGH 5 TEACHER) Dianne Corona RN Note: Patient will [...] Symptom Monitoring-COPD General On track(2023 11:36 AM GRADES 1 THROUGH 5 TEACHER) Dianne Corona RN Note: Patient will [...] Symptom Monitoring-DM General On track(2023 4:33 PM GRADES 1 THROUGH 5 TEACHER) Dianne Corona RN Note: Patient will [...] Symptom Monitoring-HTN General On track(2023 4:33 PM GRADES 1 THROUGH 5 TEACHER) Dianne Corona RN Note: Patient will [...] Out 09/19/2021 09/19/2021 09/20/2021 1:55 PM CDT COVID-19 Rule Out 01/13/2022 01/13/2022 01/13/2022 12:48 PM GRADES 1 THROUGH 5 TEACHER COVID-19 Rule Out 01/13/2022 01/13/2022 01/14/2022 12:15 AM GRADES 1 THROUGH 5 TEACHER COVID-19 Rule Out 03/18/2022 03/18/2022 03/18/2022 12:27 PM GRADES 1 THROUGH 5 TEACHER COVID-19 Rule Out 03/18/2022 03/18/2022 03/18/2022 12:57 PM GRADES 1 THROUGH 5 TEACHER COVID-19 Rule Out 03/18/2022 03/18/2022 03/19/2022 1:58 PM GRADES 1 THROUGH 5 TEACHER COVID-19 Rule Out 08/26/2022 08/26/2022 08/26/2022 4:56 PM CDT COVID-19 Rule Out 01/08/2024 01/08/2024 01/08/2024 1:05 PM CDT Assessment Noted Time PHQ-9 Depression Total Score: 0 05/25/19 22 9:23 AM CDT documented as of this encounter Care Teams Energy Audit Advisor Relationship Specialty Start Date End Date Sanjeev Webster DO [address] [place] [address] PCP - General FAMILY PRACTICE 09/25/20 Dianne Johnson, RN [address] [place] [address] Collect On Delivery Clerk (Ambulatory) REGISTERED NURSE 08/14/20 documented as of this encounter
--- OUTSIDE RECORDS SUMMARY | 2024-03-15 01:07 | XMS_ITS | Encounter Summary ---
Author Organization [facility] Address [facility] [place] [address] [place] [address] Care Team Providers Care Alumni Secretary Name Role Phone Dianne Johnson RN Unavailable [phone] Suleman Montez DO Primary Care Provider + Reason for Referral * Imaging (Routine) - Closed Specialty Diagnoses / Procedures Referred By Ian t Referred To Contact RADIOLOGY Diagnoses 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[facility]/HCC) Procedures CTA HEAD Suleman Montez DO [address] [place] [address] Phone: tel: fax: Referral ID Status Reason Start Date Expiration Date Visits Re quested Visits Authorized [id number] Closed 10/08/2021 01/06/2022 1 1 Reason for Visit * Reason Comments Stomach Pains Encounter Details Date Type Department Care Team (Late st Contact Info) Description 08/29/2021 10:40 AM CDT Office Visit [facility] Family & Internal Medicine [facility] [address] [place] [address] Suleman Montez DO [address], [place] [id number] Stomach Pains Social History Tobacco Use Types Packs/Day Years [...] Sign Reading Time Taken Comments Blood Pressure 160/80 08/29/2021 11:50 AM CDT Pulse 66 08/29/2021 10:45 AM CDT Temperature 36.6 ??C (97.9 ??F) 08/29/2021 10:45 AM C DT Respiratory Rate 12 08/29/2021 10:45 AM CDT Oxygen Saturation 96% 08/29/2021 10:45 AM CDT Inhaled Oxygen Concentration - - Weight 85.7 kg (189 lb) 08/29/2021 10:45 AM CDT Height 162.6 cm (5' 4 ) 08/29/2021 10:45 AM CDT Body Mass Index 32.44 08/29/2021 10:45 AM CDT documented in this encounter Progress Notes * Suleman Montez, - 08/29/2021 10:40 AM CDT Images from the original note were not included. GENERAL OFFICE VISIT Encounter Date: 08/29/21 Chief Complaint: 76-year-old female presents for Stomach Pains HPI: Pt presents for abdominal pain. Pt is also due for follow-up. Pt has RUQ pain. They are sharp pains. They have been going on for about 10 days. Pt still has her gallbladder from what she can recall. No change with eating. No activities seem to make it better orworse. Nothing has helped her symptoms. Pt also notes back pain. This is chronic. She is on hydrocodone. Pt is needing a UDS/CSA. Her last dose of this was today. Pt has hx of saccular aneurysm. This was noted in August 2020. This needs repeat imaging. Pt is scheduled to follow-up with neurology still for follow-up on recent episode noted in 05/24/21. Pt saw endocrine Dr. Moreno since last visit for secondary hyperparathyroidism. Pt was found to haveosteoporosis and was recommended to do Prolia by endocrine. Patient presents for follow-up on essential hypertension. ??Patient has had hypertension for multiple??years. Her levels are controlled today. ??Current medications include??amiodarone, furosemide, and lisinopril. ??Patient's blood pressure is not well controlled today.?No side effects noted from medications. ??No chest pain, SOB. 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 ? Patient presents for follow-up on HLD. Patient has had HLD for multiple years. Current medications include rosuvastatin. Current side effects include none; had to stop atorvastatin secondary to multiple side effects. Patient does need labs drawn today. Patient has Type??2??Diabetes. ??Patient has had diabetes for multiple??years. ??Medications include none specifically for lowering blood sugars. ?BS logs range: doesn't check. Pt has neuropathy and PAD, both of which are stable. Pt is on gabapentin for neuropathy. Pt's A1c is 6.1 today. Review of Systems Constitutional: Negative for fever. Respiratory: Negative for shortness of breath. Cardiovascular: Negative for chest pain. Gastrointestinal: See HPI Neurological: See HPI Patient Active Problem List Diagnosis ??? Abnormal stress test ??? Bradycardia ??? Chronic anticoagulation ??? Coronary artery disease involving diomede coronary artery of diomede heart without angina pectoris ??? Diabetes mellitus [...] 09/05/2020 ??? Tetanus/Diptheria 07/22/2014 ??? Zoster (Zostavax) 03416 Unt/0.65Ml 12/25/2015 Current Outpatient Medications Medication Sig [...] mg total) by mouth see administration instructions. [id number] tablet on , fridays and mondays 270 tablet 1 ??? warfarin 6 MG tablet Take 1 tablet (6 mg total) by mouth daily. (Patient taking differently: 9 mg on Mondays and 6 mg the other days) 90 tablet 1 ??? amoxicillin-clavulanate (AUGMENTIN) 875-125 MG tablet Take 1 tablet (875 mg total) by mouth 2 (two) times daily for 7 days. 14 tablet 0 ??? methIMAzole 5 MG tablet Take 1 tablet (5 mg total) by mouth daily. 30 tablet 11 ??? metoprolol succinate ER 25 MG 24 hr tablet Take 1 tablet (25 mg total) by mouth daily. 30 tablet 1 ??? warfarin 6 MG tablet [...] 1 tablet by mouth once daily ??? OMEPRAZOLE 20 MG capsule Take 1 [...] mg total) by mouth see administration instructions. [id number] tablet on , fridays and mondays ??? warfarin 6 MG tablet Take 1 tablet (6 mg total) by mouth daily. (Patient taking differently: 9 mg on Mondays and 6 mg the other days) Current Facility-Administered Medications on File Prior to [...] B Other (see comment) Objective: Filed Vitals: 08/29/21 1045 08/29/21 1150 BP: (!) 162/78 (!) 160/80 Pulse: 66 Resp: 12 Temp: 97.9 ??F (36.6 ??C) SpO2: 96% Weight: 85.7 kg (189 lb) Height: 5' [...] & Plan: Radha was seen today for stomach pains. Diagnoses and all orders for this visit: RUQ pain - Cancel: US ABD LIMITED; Future Type 2 diabetes mellitus with diabetic peripheral angiopathy without gangrene, without long-term current use of insulin (CMS/HCC) - CBC W/DIFF AUTOMATED; Future - LIPID PANEL; Future - TSH W/REFLEX; Future - VITAMIN D, 25 OH; Future - COMPREHENSIVE METABOLIC PANEL; Future - HEMOGLOBIN, GLYCOSYLATED; Future - Cancel: ALBUMIN URINE RANDOM; Future - CK (CPK); Future - PROTIME/INR, VENOUS; Future - VENIPUNC ARM DRAW - HEPATITIS C AB ([facility] ONLY); Future - HEPATITIS C AB ([facility] ONLY) - PROTIME/INR, VENOUS - CK (CPK) - HEMOGLOBIN, GLYCOSYLATED - COMPREHENSIVE METABOLIC PANEL - VITAMIN D, 25 OH - TSH W/REFLEX - LIPID PANEL - CBC W/DIFF AUTOMATED Secondary hyperparathyroidism (CMS/HCC) - CBC W/DIFF AUTOMATED; Future - LIPID PANEL; Future - TSH W/REFLEX; Future - VITAMIN D, 25 OH; Future - COMPREHENSIVE METABOLIC PANEL; Future - HEMOGLOBIN, GLYCOSYLATED; Future - Cancel: ALBUMIN URINE RANDOM; Future - CK (CPK); Future - PROTIME/INR, VENOUS; Future - VENIPUNC ARM DRAW - HEPATITIS C AB ([facility] ONLY); Future - HEPATITIS C AB ([facility] ONLY) - PROTIME/INR, VENOUS - CK (CPK) - HEMOGLOBIN, GLYCOSYLATED - COMPREHENSIVE METABOLIC PANEL - VITAMIN D, 25 OH - TSH W/REFLEX - LIPID PANEL - CBC W/DIFF AUTOMATED Stage 3b chronic kidney disease (CMS/HCC) - CBC W/DIFF AUTOMATED; Future - LIPID PANEL; Future - TSH W/REFLEX; Future - VITAMIN D, 25 OH; Future - COMPREHENSIVE METABOLIC PANEL; Future - HEMOGLOBIN, GLYCOSYLATED; Future - Cancel: ALBUMIN URINE RANDOM; Future - CK (CPK); Future - PROTIME/INR, VENOUS; Future - VENIPUNC ARM DRAW - HEPATITIS C AB ([facility] ONLY); Future - HEPATITIS C AB ([facility] ONLY) - PROTIME/INR, VENOUS - CK (CPK) - HEMOGLOBIN, GLYCOSYLATED - COMPREHENSIVE METABOLIC PANEL - VITAMIN D, 25 OH - TSH W/REFLEX - LIPID PANEL - CBC W/DIFF AUTOMATED Hyperlipidemia associated with type 2 diabetes mellitus (CMS/HCC) - CBC W/DIFF AUTOMATED; Future - LIPID PANEL; Future - TSH W/REFLEX; Future - VITAMIN D, 25 OH; Future - COMPREHENSIVE METABOLIC PANEL; Future - HEMOGLOBIN, GLYCOSYLATED; Future - Cancel: ALBUMIN URINE RANDOM; Future - CK (CPK); Future - PROTIME/INR, VENOUS; Future - VENIPUNC ARM DRAW - HEPATITIS C AB ([facility] ONLY); Future - HEPATITIS C AB ([facility] ONLY) - PROTIME/INR, VENOUS - CK (CPK) - HEMOGLOBIN, GLYCOSYLATED - COMPREHENSIVE METABOLIC PANEL - VITAMIN D, 25 OH - TSH W/REFLEX - LIPID PANEL - CBC W/DIFF AUTOMATED Age-related osteoporosis without current pathological fracture - VITAMIN D, 25 OH; Future - VENIPUNC ARM DRAW - VITAMIN D, 25 OH Paroxysmal atrial flutter (CMS/HCC) - PROTIME/INR, VENOUS; Future - VENIPUNC ARM DRAW - PROTIME/INR, VENOUS Drug therapy - PROTIME/INR, VENOUS; Future - VENIPUNC ARM DRAW - PROTIME/INR, VENOUS Need for hepatitis C screening test - HEPATITIS C AB ([facility] ONLY); Future - HEPATITIS C AB ([facility] ONLY) Hypertension associated with type 2 diabetes mellitus (CMS/HCC) Encounter for long-term (current) drug use - DRUG MONITORING, PANEL 5, SCREEN (U); Future - DRUG MONITORING, PANEL 5, SCREEN (U) Saccular aneurysm - CTA HEAD; Future Other orders - THYROXINE, FREE (FT4) Discussion/Summary: We will order labs as per above, including UDS and have patient complete CSA. Continue follow-up with specialist. Will order ultrasound of right upper quadrant. Will dictate blood pressure treatment based upon lab results. Will order CTA for follow-up on saccular aneurysm. We will have patient follow-up in approximately 1 month or sooner if needed for reevaluation. Patient verbalized understanding. I spent 50 minutes today reviewing the patient's medical record, obtaining history, performing an exam, ordering medications, tests, and/or procedures, documenting in the medical record, referring and/or communicating with other health care providers, counseling and educating the patient/family/caregiver, reviewing and communicating test results and coordination of care. Suleman Montez DO documented in this encounter Plan of Treatment Upcoming Encounters Date Type Department Care Team (Late st Contact Info) Description 04/14/2024 2:00 PM SCHOOL BUSINESS MANAGER Office Visit [facility] Multispecialty Care - [facility] [address], [address] [place] [id number] Julio Pulido MD [address] [place] [address] documented as of this encounter Goals Goal Patient Goal Type Associated Problems Recent Progress Patient-Stated? Author Health - patient able to perform ADLs independently General On track(2023 9:49 AM CDT) Dianne Corona RN Note: 12/17/23: Patient stated she is independent with ASL's. Establish Plan for Symptom Monitoring-CHF General On track(2023 11:36 AM SCHOOL BUSINESS MANAGER) Dianne Corona, RN Note: Patient will [...] Monitoring-COPD General On track(2023 11:36 AM SCHOOL BUSINESS MANAGER) Dianne Corona RN Note: Patient will [...] Monitoring-DM General On track(2023 4:33 PM SCHOOL BUSINESS MANAGER) Dianne Corona RN Note: Patient will [...] Monitoring-HTN General On track(2023 4:33 PM SCHOOL BUSINESS MANAGER) Dianne Corona RN Note: Patient will [...] Date/Time Associated Diagnosis Comments TSH W/REFLEX Routine 08/29/2021 3:17 PM CDT Type 2 diabetes mellitus with diabetic peripheral angiopathy without gangrene, without long-term current use of insulin (CMS/HCC [facility]HS/HCC) Secondary hyperparathyroidism (CMS/HCC HHS/HCC) Stage 3b chronic kidney disease (CMS/HCC HHS/HCC) Hyperlipidemia associated with type 2 diabetes mellitus (CMS/HCC HHS/HCC) HEMOGLOBIN, GLYCOSYLATED Routine 08/29/2021 3:17 PM CDT Type 2 diabetes mellitus with diabetic peripheral angiopathy without gangrene, without long-term current use of insulin (CMS/HCC HHS/HCC) Secondary hyperparathyroidism (CMS/HCC HHS/HCC) Stage 3b chronic kidney disease (CMS/HCC HHS/HCC) Hyperlipidemia associated with type 2 diabetes mellitus (CMS/HCC HHS/HCC) PROTHROMBIN TIME, VENOUS Routine 08/29/2021 3:17 PM CDT Type 2 diabetes mellitus with diabetic peripheral angiopathy without gangrene, without long-term current use of insulin (CMS/HCC HHS/HCC) Secondary hyperparathyroidism (CMS/HCC HHS/HCC) Stage 3b chronic kidney disease ([facility]/HCC HHS/HCC) Hyperlipidemia associated with type 2 diabetes mellitus (CMS/HCC HHS/HCC) Paroxysmal atrial flutter (CMS/HCC HHS/HCC) Drug therapy COMPREHENSIVE METABOLIC PANEL Routine 08/29/2021 3:17 PM CDT Type 2 diabetes mellitus with diabetic peripheral angiopathy without gangrene, without long-term current use of insulin (CMS/HCC HHS/HCC) Secondary hyperparathyroidism (CMS/HCC HHS/HCC) Stage 3b chronic kidney disease (CMS/HCC HHS/HCC) Hyperlipidemia associated with type 2 diabetes mellitus (CMS/HCC HHS/HCC) LIPID PANEL Routine 08/29/2021 3:17 PM CDT Type 2 diabetes mellitus with diabetic peripheral angiopathy without gangrene, without long-term current use of insulin (CMS/HCC HHS/HCC) Secondary hyperparathyroidism (CMS/HCC HHS/HCC) Stage 3b chronic kidney disease (CMS/HCC HHS/HCC) Hyperlipidemia associated with type 2 diabetes mellitus (CMS/HCC HHS/HCC) HEPATITIS C ANTIBODY Routine 08/29/2021 3:17 PM CDT Type 2 diabetes mellitus with diabetic peripheral angiopathy without gangrene, without long-term current use of insulin (CMS/HCC HHS/HCC) Secondary hyperparathyroidism (CMS/HCC HHS/HCC) Stage 3b chronic kidney disease (CMS/HCC HHS/HCC) Hyperlipidemia associated with type 2 diabetes mellitus (CMS/HCC HHS/HCC) Need for hepatitis C screening test CBC W/DIFF AUTOMATED Routine 08/29/2021 3:17 PM CDT Type 2 diabetes mellitus with diabetic peripheral angiopathy without gangrene, without long-term current use of insulin (CMS/HCC HHS/HCC) Secondary hyperparathyroidism (CMS/HCC HHS/HCC) Stage 3b chronic kidney disease (CMS/HCC HHS/HCC) Hyperlipidemia associated with type 2 diabetes mellitus (CMS/HCC HHS/HCC) THYROXINE, FREE (FT4) Routine 08/29/2021 3:17 PM CDT VITAMIN D, 25 OH Routine 08/29/2021 3:17 PM CDT Type 2 diabetes mellitus with diabetic peripheral angiopathy without gangrene, without long-term current use of insulin (CMS/HCC HHS/HCC) Secondary hyperparathyroidism (CMS/HCC HHS/HCC) Stage 3b chronic kidney disease (CMS/HCC HHS/HCC) Hyperlipidemia associated with type 2 diabetes mellitus (CMS/HCC HHS/HCC) Age-related osteoporosis without current pathological fracture CK (CPK) Routine 08/29/2021 3:17 PM CDT Type 2 diabetes mellitus with diabetic peripheral angiopathy without gangrene, without long-term current use of insulin (CMS/HCC HHS/HCC) Secondary hyperparathyroidism (CMS/HCC HHS/HCC) Stage 3b chronic kidney disease (CMS/HCC HHS/HCC) Hyperlipidemia associated with type 2 diabetes mellitus (CMS/HCC HHS/HCC) DRUG MONITORING, PANEL 5, SCREEN (U) Routine 08/29/2021 11:39 AM CDT Encounter for long-term (current) drug use COLLECTION VENOUS BLOOD VENIPUNCTURE Routine 08/29/2021 11:20 AM CDT Type 2 diabetes mellitus with diabetic peripheral angiopathy without gangrene, without long-term current use of insulin ([facility] HHS/HCC) Secondary hyperparathyroidism ([facility]/HCC HHS/HCC) Stage 3b chronic kidney disease ([facility] HHS/HCC) Hyperlipidemia associated with type 2 diabetes mellitus ([facility] HHS/HCC) Age-related osteoporosis without current pathological fracture Paroxysmal atrial flutter ([facility] HHS/HCC) Drug therapy documented in this encounter Results * CTA HEAD (10/22/2021 1:20 PM CDT) Anatomical Region Laterality Modality Head Computed Tomogra phy 10/23/2021 9:21 AM CDT Impressions 10/23/2021 9:27 AM CDT IMPRESSION: 1. 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 Similar findings described on prior catheter angiography examination 08/10/2020, though no images are available for direct comparison. Ordered By: SULEMAN MONTEZ Interpreted By: Dale Brush MD, 10/23/2021 [...] to the terminus. configuration of the left LAPPING MACHINE SET UP OPERATOR with hypoplastic P1 segment and patent posterior [...] less than 50% narrowing suggested. 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 Anterior communicating artery ispatent. Otherwise the proximal portions of the anterior and middlecerebral arteries are patent. Atherosclerotic calcifications seen along the vertebral artery [id number], without significant narrowing. Basilar artery patent to theterminus. configuration of the left LAPPING MACHINE SET UP OPERATOR with hypoplastic P1 segmentand patent posterior communicating [...] available for direct comparison. Ordered By: SULEMAN MONTEZ Interpreted By: Dale Brush MD, 10/23/2021 9:21 AM Suleman Montez DO CT Final Re sult * (ABNORMAL) THYROXINE, FREE (FT4) (08/29/2021 3:17 PM CDT) [facility] T4 1.56(H) 0.76 - 1.46 NG/DL 08/29/2021 11:02 PM CDT [facility] 08/29/2021 3:17 PM CDT Suleman Montez DO LABORATORY Final Re sult Performing Organization Address [facility]/ZIP Co de Phone Number [facility] [address] [place] [address], [place] [phone] * HEPATITIS C AB ([facility] ONLY) (08/29/2021 3:17 PM CDT) [facility] HEPATITIS C AB NON-REACTI VE NON-REACT JACKIE 08/31/2021 5:36 AM CDT [facility] Comment: ANTIBODIES TO HCV NOT DETECTED. DOES NOT EXCLUDE THE POSSIBILITY OF EXPOSURE TO HCV. 08/29/2021 3:17 PM CDT Suleman Montez DO LABORATORY Final Re sult Performing Organization Address City/[facility]/ZIP Co de Phone Number [facility] [address] [place] [address], [place] [phone] * (ABNORMAL) PROTIME/INR, VENOUS (08/29/2021 3:17 PM CDT) PROTIME 47.2(H) 9.3 - 11.6 SEC 08/29/2021 8:43 PM CDT [facility] INR 4.8(HH) 0.9 - 1.1 08/29/2021 8:43 PM CDT [facility] Comment: TREATMENT OR PROPHYLAXIS AGAINST: ?? THERAPEUTIC RANGE (INR): ?VENOUS THROMBOSIS ? 2.0-3.0 ?PULMONARY EMBOLUS ? 2.0-3.0 ?? MECHANICAL PROSTHETIC VALVES ? 2.5-3.5 REPEATED AND VERIFIED CALLED [address] MONTEZ 08/29/2021 3:17 PM CDT Suleman Montez DO LABORATORY Final Re sult Performing Organization Address [facility] Co de Phone Number [facility] [address] [place] [address], * CK (CPK) (08/29/2021 3:17 PM CDT) CPK 76 26 - 192 U/L 08/29/2021 10:07 PM CDT [facility] 08/29/2021 3:17 PM CDT Suleman Montez DO LABORATORY Final Re sult Performing Organization Address [facility]/ZIP Co de Phone Number [facility] [address] [place] [address], * (ABNORMAL) HEMOGLOBIN, GLYCOSYLATED (08/29/2021 3:17 PM CDT) Pathologist [facility] HGB A1C 6.1 4.5 - 6.2 % 08/29/2021 10:05 PM CDT [facility] ESTIMATED AVG GLUCOSE 128(H) 74 - 106 MG/DL 08/29/2021 10:05 PM CDT [facility] 08/29/2021 3:17 PM CDT us Suleman Montez DO LABORATORY Final Re sult [facility] [place] [address] [place] [address], * (ABNORMAL) COMPREHENSIVE METABOLIC PANEL (08/29/2021 3:17 PM CDT) [facility] SODIUM S/P/B 144 136 - 145 MMOL/L 08/29/2021 10:07 PM CDT [facility] POTASSIUM S/P/B 5.4(H) 3.5 - 5.1 MMOL/L 08/29/2021 10:07 PM CDT [facility] CHLORIDE S/P/B 105 98 - 107 MMOL/L 08/29/2021 10:07 PM CDT [facility] CO2 28.0 21 - 32 MMOL/L 08/29/2021 10:07 PM CDT [facility] GLUCOSE 137(H) 70 - 99 MG/DL 08/29/2021 10:07 PM CDT [facility] BUN 25(H) 7 - 18 MG/DL 08/29/2021 10:07 PM CDT [facility] CREATININE S/P/B 1.47(H) 0.55 - 1.02 MG/DL 08/29/2021 10:07 [facility] CALCIUM S/P/B 9.8 8.4 - 10.5 MG/DL 08/29/2021 10:07 [facility] BILIRUBIN TOTAL S/P/B 0.3 0.2 - 1.0 MG/DL 08/29/2021 10:07 [facility] ALKALINE PHOSPHATASE S/P/B 65 55 - 142 U/L 08/29/2021 10:07 PM [facility] AST 18 15 - 37 U/L 08/29/2021 10:07 PM [facility] ALT 24 14 - 59 U/L 08/29/2021 10:07 [facility] TOTAL PROTEIN S/P/B 6.3(L) 6.4 - 8.2 G/DL 08/29/2021 10:07 [facility] ALBUMIN S/P/B 3.6 3.4 - 5.0 G/DL 08/29/2021 10:07 PM [facility] ANION GAP 11.0 5 - 15 MMOL/L 08/29/2021 10:07 [facility] Comment:REFERENCE RANGE NOT ESTABLISHED OSMOLALITY (CALC) 305 MOSM/KG 022 10:07 [facility] Comment:REFERENCE RANGE NOT ESTABLISHED GFR ESTIMATE 37(L) >90 ML/MIN/1. 73 M2 08/29/2021 10:07 PM [facility] GFR NOTES GFR REFERENCE S: 08/29/2021 10:07 PM [facility] Comment: THE ESTIMATED GFR IS CALCULATED [...] ml/min/1.73 m2 G5,KIDNEY FAILURE: <15 ml/min/1.73 m2 08/29/2021 3:17 PM CDT Suleman Montez DO LABORATORY Final Re sult Performing Organization Address [facility] de Phone Number [facility] [address] [place] [address], * VITAMIN D, 25 OH (08/29/2021 3:17 PM CDT) VITAMIN D 25 HYDROXY TOTAL S/P/B 49.8 30 - 100 NG/ML 08/29/2021 10:07 PM CDT [facility] Comment: ? DEFICIENT ??<20 ?INSUFFICIENT 20-30 ?SUFFICIENT 30-100 08/29/2021 3:17 PM CDT Suleman Montez DO LABORATORY Final Re sult Performing Organization Address [facility] de Phone Number [address] [address], * (ABNORMAL) TSH W/REFLEX (08/29/2021 3:17 PM CDT) TSH 0.060(L) 0.358 - 3.740 uIU/ML 08/29/2021 10:07 PM CDT [facility] 08/29/2021 3:1 7 PM CDT Suleman Montez DO LABORATORY Final Re sult [facility] [place] [address] [place] [address], [place] [phone] * (ABNORMAL) LIPID PANEL (08/29/2021 3:17 PM CDT) CHOLESTEROL 200(H) <200 MG/DL 08/29/2021 10:07 PM CDT [facility] TRIGLYCERIDES 108 <150 MG/DL 08/29/2021 10:07 PM CDT [facility] HDL 71 >40 MG/DL 08/29/2021 10:07 PM CDT [facility] LDL-C 107(H) <100 MG/DL 08/29/2021 10:07 PM CDT [facility] VLDL CALCULATION 22 5 - 28 MG/DL 08/29/2021 10:07 PM CDT [facility] CHOL/HDL RATIO 2.8 0.0 - 4.0 08/29/2021 10:07 PM CDT [facility] LDL/HDL 1.5 0.41 - 2.13 08/29/2021 10:07 PM CDT [facility] NON HDL CHOLESTEROL 129 <140 MG/DL 08/29/2021 10:07 PM CDT [facility] 08/29/2021 3:17 PM CDT Suleman Montez DO LABORATORY Final Re sult [facility] [place] [address] [place] [address], [place] [phone] * (ABNORMAL) CBC W/DIFF AUTOMATED (08/29/2021 3:17 PM CDT) WBC 5.1 4.0 - 10.8 x10'3/uL 08/29/2021 8:34 PM CDT [facility] RBC 3.60(L) 4.10 - 5.40 x10'6/uL 08/29/2021 8:34 PM CDT [facility] HGB 11.9(L) 12.0 - 16.0 G/DL 08/29/2021 8:34 PM CDT [facility] HCT 36.9 36.0 - 47.0 % 08/29/2021 8:34 PM CDT [facility] MCV 102.5(H) 78.0 - 100.0 FL 08/29/2021 8:34 PM CDT [facility] MCH 33.1(H) 27.0 - 31.0 PG 08/29/2021 8:34 PM CDT [facility] MCHC 32.2(L) 33.0 - 36.0 G/DL 08/29/2021 8:34 PM CDT [facility] RDW 12.8 11.5 - 14.5 % 08/29/2021 8:34 PM CDT [facility] PLT 245 150 - 350 x10'3/uL 08/29/2021 8:34 PM CDT [facility] MPV 13.1(H) 7.4 - 10.4 FL 08/29/2021 8:34 PM T [facility] DIFFERENTIAL TYPE AUTOMATED DIFFERENTIAL 08/29/2021 8:34 PM CDT [facility] NEUTROPHILS % 66.9 % 08/29/2021 8:34 PM CDT [facility] LYMPHOCYTES % 20.5 % 08/29/2021 8:34 PM CDT [facility] MONOCYTES % 9.6 % 08/29/2021 8:34 PM CDT [facility] EOSINOPHILS % 1.4 % 08/29/2021 8:34 PM CDT [facility] BASOPHILS % 1.4 % 08/29/2021 8:34 PM CDT [facility] IMMATURE GRANS % 0.2 % 08/29/2021 8:34 PM CDT [facility] ABS. NEUTROPHILS 3.42 1.60 - 8.30 x10'3/uL 08/29/2021 8:34 PM CDT [facility] ABS. LYMPHOCYTES 1.05 0.80 - 4.70 x10'3/uL 08/29/2021 8:34 PM CDT [facility] ABS. MONOCYTES 0.49 0.00 - 1.50 x10'3/uL 08/29/2021 8:34 PM CDT [facility] ABS. EOSINOPHILS 0.07 0.00 - 0.40 x10'3/uL 08/29/2021 8:34 PM CDT [facility] ABS. BASOPHILS 0.07 0.00 - 0.20 x10'3/uL 08/29/2021 8:34 PM CDT [facility] ABS. IMMATURE GRANULOCYTES 0.01 0.00 - 0.03 x10'3/uL 08/29/2021 8:34 PM CDT [facility] 08/29/2021 3:17 PM CDT Suleman Montez DO LABORATORY Final Re sult [facility] [address] [place] [id number], * (ABNORMAL) DRUG MONITORING, PANEL 5, SCREEN (U) (08/29/2021 11:39 AM CDT) AMPHETAMINES PM NEGATIVE <500 ng/mL John Rodriguez Comment: See Note A See Note A BARBITURATES PM (U) NEGATIVE <300 ng/mL [facility] Comment: See Note A See Note A BENZODIAZEPINES PM (U) NEGATIVE <100 ng/mL [facility] [place] Comment: See Note A See Note A COCAINE METABOLITE PM (U) NEGATIVE <150 ng/mL [facility] [place] Comment: See Note A See Note A MARIJUANA METABOLITE PM (U) NEGATIVE <20 ng/mL [facility] [place] Comment: See Note A See Note A METHADONE PM (U) NEGATIVE <100 ng/mL [facility] [place] Comment: See Note A See Note A OPIATES PM (U) POSITIVE(A) <100 ng/mL [facility] [place] Comment: See Note A See Note A OXYCODONE PM (U) NEGATIVE <100 ng/mL [facility] [place] Comment: See Note A See Note A CREATININE RANDOM URINE 133.6 > or = 20.0 mg/dL [facility] [place] pH PM (U) 6.3 4.5 - 9.0 [facility] [place] OXIDANT NEGATIVE <200 mcg/mL [facility] [place] NOTE [facility] [place] Comment: This drug testing is for medical treatment only. Analysis was performed as non-forensic testing and these results should be used only by healthcare providers to render diagnosis or treatment, or to monitor progress of medical conditions. Note A: The results are presumptive; based only on screening methods, and they have not been confirmed by a definitive method. Healthcare Providers needing Interpretation assistance, please contact us at [phone] ( ) M-F, 8am to 10pm EST 08/29/2021 11:3 9 AM CDT 08/30/2021 3:05 AM CDT us Suleman Montez DO LABORATORY Final Re sult [facility] [address] [place] [address] [facility] [address] [address] [place] [address] documented in this encounter Visit Diagnoses Diagnosis RUQ pain- Primary Abdominal pain, right upper quadrant Type 2 diabetes mellitus with diabetic peripheral angiopathy without gangrene, without long-term current use of insulin ([facility]/HCC HHS/HCC) Secondary hyperparathyroidism (CMS/HCC HHS/HCC) Secondary hyperparathyroidism (of renal origin) Stage 3b chronic kidney disease (CMS/HCC HHS/HCC) Hyperlipidemia associated with type 2 diabetes mellitus (CMS/HCC HHS/HCC) Age-related osteoporosis without current pathological fracture Senile osteoporosis Paroxysmal atrial flutter ([facility]/HCC HHS/HCC) Atrial flutter Drug therapy Encounter for long-term (current) use of other medications Need for hepatitis C screening test Special screening examination for other specified viral diseases Hypertension associated with type 2 diabetes mellitus ([facility]/HCC HHS/HCC) Encounter for long-term (current) drug use Encounter for long-term (current) use of other medications 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HHS/HCC) Cerebral aneurysm, nonruptured 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HHS/HCC) Cerebral aneurysm, nonruptured documented in this encounter Additional Health Concerns Assessment Noted Time PHQ-9 Depression Total Score: 0 05/25/19 22 9:23 AM CDT documented as of this encounter Care Teams Alumni Secretary Relationship Specialty Start Date End Date Suleman Montez DO [address] [place] [address] PCP - General FAMILY PRACTICE 09/25/20 Dianne Johnson, RN [address] [place] [address] Oceanography Teacher (Ambulatory) REGISTERED NURSE 08/14/20 documented as of this encounter
--- OUTSIDE RECORDS SUMMARY | 2024-03-15 01:07 | XMS_ITS | Encounter Summary ---
Author Organization [facility] Address Critical access hospital6 [facility]. [place], [place] [address] [place] [address] Care Team Providers Care Steel Hanger Name Role Phone Dianne Johnson RN Unavailable [phone] Sanjeev Webster DO Primary Care Provider + Reason for Visit * Reason Comments Lab Test Encounter Details Date Type Department Care Team (Late st Contact Info) Description 09/02/2021 9:20 AM CDT Allied Health/Nurse Visit [facility] Medical [facility] Family & Internal Medicine [address] [address] Sanjeev Webster DO [facility] [place] [address] Lab Test Social History Tobacco Use Types Packs/Day Years [...] as of this encounter Progress Notes * Chas Staley MA - 09/02/2021 9:20 AM CDTAddended by: CHAS STALEY on: 09/02/2021 09:28 AM Modules accepted: Orders documented in this encounter Plan of Treatment Upcoming Encounters Date Type Department Care Team (Late st Contact Info) Description 04/14/2024 2:00 PM MEASUREMENT ANALYST Office Visit [facility] Medical Group Multispecialty Care - [facility] [address] [facility], [address] [place] [phone] Julio Pulido MD [address] [place] [address] documented as of this encounter Goals Goal Patient Goal Type Associated Problems Recent Progress Patient-Stated? Author Health - patient able to perform ADLs independently General On track(2023 9:49 AM CDT) Dianne Corona, RN Note: 12/17/23: Patient stated she is independent with ASL's. Establish Plan for Symptom Monitoring-CHF General On track(2023 11:36 AM MEASUREMENT ANALYST) Dianne Corona, RN Note: Patient will [...] Symptom Monitoring-COPD General On track(2023 11:36 AM MEASUREMENT ANALYST) Dianne Corona, RN Note: Patient will [...] Symptom Monitoring-DM General On track(2023 4:33 PM MEASUREMENT ANALYST) Dianne Corona RN Note: Patient will [...] Symptom Monitoring-HTN General On track(2023 4:33 PM MEASUREMENT ANALYST) Dianne Corona RN Note: Patient will [...] Date/Time Associated Diagnosis Comments COLLECT.CAPILLARY (FNGR,HEEL,EAR) Routine 09/02/2021 9:28 AM CDT Drug therapy Paroxysmal atrial flutter ([facility] HHS/HCC) PROTHROMBIN TIME, FINGERSTICK Routine 09/02/2021 Drug therapy Paroxysmal atrial flutter ([facility]) documented in this encounter Results * PROTIME/INR, FINGERSTICK (09/02/2021) INR WHOLE BLOOD 2.80 MG-S [facility] 09/02/2021 us Sanjeev Webster DO LABORATORY Final Re sult [facility] [address] [place] [address], documented in this encounter Visit Diagnoses Diagnosis Drug therapy- Primary Encounter for long-term (current) use of other medications Paroxysmal atrial flutter ([facility]/HCC HHS/HCC) Atrial flutter documented in this encounter Additional Health Concerns Assessment Noted Time PHQ-9 Depression Total Score: 0 05/25/19 22 9:23 AM CDT documented as of this encounter Care Teams Steel Hanger Relationship Specialty Start Date End Date Sanjeev Webster DO [address] [place] [address] PCP - General FAMILY PRACTICE 09/25/20 Dianne Johnson, RN [address] [place] [address] Immersion Metal Cleaner (Ambulatory) REGISTERED NURSE 08/14/20 documented as of this encounter
--- OUTSIDE RECORDS SUMMARY | 2024-03-15 01:07 | XMS_ITS | Encounter Summary ---
Author Organization [facility] Address [facility] [place] [address] [place] [address] Care Team Providers Care Catalyst Impregnator Name Role Phone Dianne Johnson RN Unavailable [phone] Sanjeev Webster DO Primary Care Provider + Encounter Details Date Type Department Care Team (Latest Contact Info) Description 05/24/2021 - 05/24/2021 11:59 PM CDT Hospital Encounter [facility] [address] [place] [address] Sanjeev Webster DO [address] [place] [address] Discharge Disposition: Home or Self [...] obstructive pulmonary disease, unspecified COPD type ([facility]) Inhale 2 puffs into the lungs every 6 (six) hours as needed for Wheezing. 18 g 1 2 08/14/19 22 ALPRAZolam 0.25 MG tabletIndications:A nxiety Take 1 tablet (0.25 mg total) by mouth 2 (two) times daily as needed for Anxiety. 30 tablet 2 10/11/19 22 amiodarone 200 MG tablet Take 100 mg by mouth daily. 0 09/27/19 22 atorvastatin 10 MG tabletIndications:H LD (hyperlipidemia) Take 1 tablet (10 mg total) by mouth daily. 90 tablet 1 2 08/15/19 22 azelastine (AZELASTINE) 0.1 % nasal sprayIndications:Ch ronic frontal sinusitis,Seasonal allergic rhinitis, unspecified trigger 1 spray by Nasal route 2 (two) times daily. Use in each nostril as directed 30 mL 1 1 10/16/19 22 Blood Glucose Monitoring Suppl (ONE TOUCH ULTRA 2) w/Device KitIndications:Type 2 diabetes mellitus with diabetic peripheral angiopathy without gangrene, without long-term current use of insulin ([facility]) Use daily as directed 1 kit 1 10/16/19 22 CONTOUR NEXT TEST test strip USE 1 STRIP TO CHECK GLUCOSE THREE TIMES DAILY 0 10/16/19 22 FEROSUL 325 (65 Fe) MG tabletIndications:I elida deficiency anemia, unspecified iron deficiency anemia type Take 1 tablet (325 mg total) by mouth daily. 90 tablet 1 1 06/28/19 22 fluticasone propionate 50 MCG/ACT nasal spray 2 sprays by Nasal route daily. 03/21/19 23 furosemide 20 MG tabletIndications:H ypertensive heart disease with congestive heart failure, unspecified heart failure type ([facility]) Take 1 tab every other day. 90 tablet 1 2 10/22/19 22 gabapentin 300 MG capsuleIndications: Back pain Take 1 capsule (300 mg total) by mouth 2 (two) times daily. 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, without long-term current use of insulin ([facility]) 1 strip by Other route daily as needed. 100 strip 1 10/16/19 22 HYDROcodone-acetami nophen 10-325 MG tabletIndications:C hronic Pain Take 1 tablet by mouth every 6 (six) hours as needed for Pain. Indications: Chronic Pain Please call office regarding refills at earliest convenience. 30 tablet 2 05/30/19 22 Lancets MiscIndications:Typ e 2 diabetes mellitus with diabetic peripheral angiopathy without gangrene, without long-term current use of insulin ([facility]) Test daily as directed 100 each 1 1 10/16/19 22 lidocaine 5 %Indications:Neck pain Apply pain patch to affected area. Change after 12 hours. 6 patch 1 03/21/19 23 LISINOPRIL 40 MG tabletIndications:H ypertensive urgency Take 1 tablet by mouth once daily 90 tablet 1 2 11/06/19 22 omeprazole 20 MG capsule Take 1 capsule (20 mg total) by mouth daily. 90 capsule 1 1 06/18/19 22 oxymetazoline 0.05 % nasal sprayIndications:Ch ronic frontal sinusitis,Seasonal allergic rhinitis, unspecified trigger Not to exceed 3 days. May use for 3 days then refrain for 3 days and repeat as needed. 20 mL 1 10/16/19 22 venlafaxine XR 150 MG 24 hr capsuleIndications: Diabetic polyneuropathy associated with type 2 diabetes mellitus ([facility]),Mild episode of recurrent major depressive disorder (CMS/HCC) Take 1 capsule (150 mg total) by mouth daily. 90 capsule 1 1 06/18/19 22 warfarin 1 MG tabletIndications:H /O mechanical [...] st Contact Info) Description 04/14/2024 2:00 PM RADAR ENGINEERING TEACHER Office Visit [facility] Medical Group Multispecialty Care - [facility] [address] [facility], [address] [place] [address] Julio Pulido MD [address] [place] [address] documented as of this encounter Goals Goal Patient Goal Type Associated Problems Recent Progress Patient-Stated? Author Health - patient able to perform ADLs independently General On track(2023 9:49 AM CDT) Dianne Corona, RN Note: 12/17/23: Patient stated she is independent with ASL's. Establish Plan for Symptom Monitoring-CHF General On track(2023 11:36 AM RADAR ENGINEERING TEACHER) Dianne Corona, RN Note: Patient will [...] Symptom Monitoring-COPD General On track(2023 11:36 AM RADAR ENGINEERING TEACHER) Dianne Corona RN Note: Patient will [...] Symptom Monitoring-DM General On track(2023 4:33 PM RADAR ENGINEERING TEACHER) Dianne Corona RN Note: Patient will [...] Symptom Monitoring-HTN General On track(2023 4:33 PM RADAR ENGINEERING TEACHER) Dianne Corona RN Note: Patient will [...] documented as of this encounter Care Teams Catalyst Impregnator Relationship Specialty Start Date End Date Sanjeev Webster DO [address] [place] [address] PCP - General FAMILY PRACTICE 09/25/20 Dianne Johnson, RN [address] [place] [address] Product Architect (Ambulatory) REGISTERED NURSE 08/14/20 documented as of this encounter
--- OUTSIDE RECORDS SUMMARY | 2024-03-15 01:07 | XMS_ITS | Encounter Summary ---
Author Organization [facility] Address [facility] [facility] [place] [address] [place] [address] Care Team Providers Care Meat Market Manager Name Role Phone Dianne Johnson RN Unavailable [phone] Sanjeev Webster DO Primary Care Provider + Reason for Visit * Reason Comments Injection * Treatment/Therapy Plan Authorization (Routine) - Pending Review Specialty Diagnoses / Procedures Referred By Contac t Referred To Contact Diagnoses Osteoporosis Age-related osteoporosis with current pathological fracture Procedures INJ,DENOSUMAB,1 MG (XGEVA,PROLIA) [facility] Medical Group Diabetes and Endocrinology - [place] [address] Phone: tel: fax: [facility] [place] [address] Phone: tel: fax: Referral ID Status Reason Start Date Expiration Date V isits Requested Visits Authorized [id number] Pending Review 07/16/2021 2 2 Encounter Details Date Type Department Care Team (Late st Contact Info) Description 08/08/2021 11:00 AM CDT Treatment [facility] [place] [address] Panda Moreno MD Injection Social History Tobacco Use Types Packs/Day Years [...] Sign Reading Time Taken Comments Blood Pressure 144/69 08/08/2021 11:16 AM CDT Pulse 62 08/08/2021 11:16 AM CDT Temperature 36.7 ??C (98 ??F) 08/08/2021 11:16 AM CDT Respiratory Rate 20 08/08/2021 11:16 AM CDT Oxygen Saturation 97% 08/08/2021 11:16 AM CDT Inhaled Oxygen Concentration - - Weight - - Height - - Body Mass Index - - documented in this encounter Progress Notes * Chanel Schmidt RN - 08/08/2021 11:00 AM CDT Pt tolerated Prolia sc well with out complications. documented in this encounter Plan of Treatment Upcoming Encounters Date Type Department Care Team (Late st Contact Info) Description 04/14/2024 2:00 PM SCIENCE PROFESSOR Office Visit [facility] Medical Group Multispecialty Care - [address], [address] [place] [phone] Julio Pulido MD [address] [place] [address] documented as of this encounter Goals Goal Patient Goal Type Associated Problems Recent Progress Patient-Stated? Author Health - patient able to perform ADLs independently General On track(2023 9:49 AM CDT) Dianne Corona RN Note: 12/17/23: Patient stated she is independent with ASL's. Establish Plan for Symptom Monitoring-CHF General On track(2023 11:36 AM SCIENCE PROFESSOR) Dianne Corona RN Note: Patient will [...] Symptom Monitoring-COPD General On track(2023 11:36 AM SCIENCE PROFESSOR) Dianne Corona RN Note: Patient will [...] Symptom Monitoring-DM General On track(2023 4:33 PM SCIENCE PROFESSOR) Dianne Corona RN Note: Patient will [...] Symptom Monitoring-HTN General On track(2023 4:33 PM SCIENCE PROFESSOR) Dianne Corona RN Note: Patient will [...] pathological fracture presence documented in this encounter Administered Medications Inactive Administered Medications - up to 3 most recent administrations Medication Order MAR Action Action Date Dose Rate Site denosumab (PROLIA) injection 60 mg 60 mg, Subcutaneous, Once, 1 dose, On Sandi 08/08/21 at 0815Indications:Age-related osteoporosis with current pathological fracture, initial encounter,Other osteoporosis, unspecified pathological fracture presence Given 08/08/2021 11:18 AM CDT 60 mg Left Arm documented in this encounter Additional Health Concerns Assessment Noted Time PHQ-9 Depression Total Score: 0 05/25/19 22 9:23 AM CDT documented as of this encounter Care Teams Meat Market Manager Relationship Specialty Start Date End Date Sanjeev Webster DO [address] [place] [address] PCP - General FAMILY PRACTICE 09/25/20 Dianne Johnson, RN [address] [place] [address] Safety Tech (Ambulatory) REGISTERED NURSE 08/14/20 documented as of this encounter
--- OUTSIDE RECORDS SUMMARY | 2024-03-15 01:07 | XMS_ITS | Encounter Summary ---
Author Organization [facility] Address [address] [place] [address]. [place] [address] [place] [address] Care Team Providers Care Swing Frame Grinder Operator Name Role Phone Dianne Johnson RN Unavailable [phone] Sanjeev Webster DO Primary Care Provider + Reason for Visit * Reason Comments Ultrasound (SCAN) Encounter Details Date Type Department Care Team (Late Contact Info) Description 09/10/2021 Scan HEALTH INFO SRVCS Scanned, Documents Ultrasound (SCAN) Social History Tobacco Use Types [...] Upcoming Encounters Date Type Department Care Team ([facility] Contact Info) Description 04/14/2024 2:00 PM MANUFACTURING ENGINEER CHIEF Office Visit [facility] Medical Group Multispecialty Care - [address] [place] [address] Julio Pulido MD [address] [place] [address] documented as of this encounter Goals Goal Patient Goal Type Associated Problems Recent Progress Patient-Stated? Author Health - patient able to perform ADLs independently General On track(2023 9:49 AM CDT) Dianne Corona RN Note: 12/17/23: Patient stated she is independent with ASL's. Establish Plan for Symptom Monitoring-CHF General On track(2023 11:36 AM MANUFACTURING ENGINEER CHIEF) Dianne Corona RN Note: Patient will [...] General On track(2023 11:36 AM MANUFACTURING ENGINEER CHIEF) Dianne Corona RN Note: Patient will [...] General On track(2023 4:33 PM MANUFACTURING ENGINEER CHIEF) No Johnson, Dianne R, RN Note: Patient [...] General On track(2023 4:33 PM MANUFACTURING ENGINEER CHIEF) Dianne Corona RN Note: Patient will [...] Associated Diagnosis Comments ULTRASOUND GENERIC (SCAN ORDER) 09/10/2021 ULTRASOUND GENERIC (SCAN ORDER) 09/10/2021 documented in this encounter Results * ULTRASOUND GENERIC (09/10/2021) Anatomical Region Laterality Modality Other 09/10/2021 Narrative 09/10/2021 Ordered by an unspecified provider. us Documents Scanned SCANNING Final Result * ULTRASOUND GENERIC (09/10/2021) Anatomical Region Laterality Modality Other 09/10/2021 Narrative 09/10/2021 Ordered by an unspecified provider. us Documents Scanned SCANNING Final Result documented in this encounter Visit Diagnoses Not on filedocumented in this encounter Additional Health Concerns Assessment Noted Time PHQ-9 Depression Total Score: 0 05/25/19 22 9:23 AM CDT documented as of this encounter Care Teams Swing Frame Grinder Operator Relationship Specialty Start Date End Date Sanjeev Webster DO [address] [place] [address] PCP - General FAMILY PRACTICE 09/25/20 Dianne Johnson, RN [address] [place] [address] Press Set Up Person (Ambulatory) REGISTERED NURSE 08/14/20 documented as of this encounter
--- OUTSIDE RECORDS SUMMARY | 2024-03-15 01:07 | XMS_ITS | Encounter Summary ---
Author Organization [facility] Address [facility] [address] [place] [address] Care Team Providers Care Heading Maker Name Role Phone Casey Johnson RN Unavailable [phone] Sanjeev Webster DO Primary Care Provider + Reason for Visit * Reason Onset Date Comments Care Management 07/29/2021 CCM Enrollment Encounter Details Date Type Department Care Team (Late st Contact Info) Description 07/29/2021 Patient Outreach [facility] Medical Group Family & Internal Medicine [address] [phone] Casey Johnson RN [address] [place] [address] Care Management (CCM Enrollment) Social History Tobacco Use Types Packs/Day Years [...] Progress Notes * Casey Johnson RN - 07/29/2021 12:17 PM CDT Images from the original note were not included. Chronic Care Management: Patient concerns or urgent matters that need addressed: 1. Patient c/o muscle cramps in bilateral calves at night on and off x 3 weeks to a month now. Of note patient is taking Atorvastatin. Requesting recommendations. 2. Patient diabetic. A1C 6.5 on 05/24/21. Not on any medications currently. How often should she check her BG? She is currently not checking. 3. Last INR: 1.5 on 05/24/21. Patient unaware how much Warfarin she is taking. Fmmvnigm-wn-foz takescare of pill community planner. Informed patient she needs an INR checked. Patient stated she will try and get protime done today. Left message for Izzy; vswinntd-gf-btq (on HIPPA) to return phone call to confirm how much Warfarin patient is taking. Izzy called back and stated patient is taking Warfarin 6 mg every day but Thursday she takes 9 mg. She will remind patient to get Protime done. 07/30/21: Contacted patient about the information below from . Stated she will check her BG fasting 2-4 times a week and record readings. Izzy; myvkyksf-ix-brr takes care of her pill community planner so patient is aware CC will reach out to Izzy and have her pull the Atorvastatin. Informed patient she may not notice a difference for two weeks after she stops taking it. Stated she had a PT/INR done today at [facility] [address] in [place]. Stated she has a standing order and she thought it was from . Informed patient that Exhaust Equipment Operator in [place] has been following up on INR's. CC will reach out to 's office to confirm they are following up and let them know she had INR today.Message sent to nursing team to get a QPA 1 mo F/U appointment scheduled since she missed 07/19/21 appointment. Patient is aware. 07/30/21: Contacted Izzy and she will pull Atorvastatin starting tomorrow. 07/30/21: Spoke to Halina with 's office. Stated Cardiology f/u on INR. Informed patient had done today at [facility] [address] in [place]. She will inform nurse. Gave Halina CC direct phone number if nurse has any questions. Patient Status: Contacted patient today and educated on hypoglycemia s/s and how to treat. Patient stated if she developed hypoglycemia s/s she would treat with regular soda or O.J. Patient is currently not on DM medication at this time. Stated she is not checking her BG. Message sent to to find out how often she should check BG. Confirmed with patient she is scheduled for an US at [facility] tomorrow. Patient stated she is aware and has an appointment at [facility] on 08/01/21 for an injection with IV infusion. Patient stated she may have a friend take her to the upcoming appointments. Denies sob or swellingat this time. Stated I take a water pill qod and it works. She had a couple chore workers and they quit after a couple of days. Stated she received a call to find out if she needed services and she told them not at this time. Started a diet today. Stated she is eating cheerios and making a roast. Reports using a cane every once in a while when ambulating. Dkqycmda-os-fkn sets up her pill community planner and an alarm will go off at 8:00 am and 8:00 PM reminding her to take her medications. Statedshe doesn't take any medications in between those times. Patient stated she last weighed herself a couple of weeks ago. Encouraged patient to weigh every morning if not at risk for falling and contact CC with a 3 lb weight gain over night. Plan of Care: city wellness coordinator will continue to follow up by [...] sob, edema or cough at this time. ??? Establish Plan for [...] BG. Message sent to 's nursing team. ??? Establish Plan for Symptom Monitoring-HTN Not [...] good at appointment yesterday. CC reviewedreading in [place] from yesterday. B/P: 132/70 P: 65. 07/29/21: Patient is not taking B/P at this time. Stated her adsdilgk-qm-dmz sets up her pill community planner and she is taking medications as directed. Reports alarm will go off at 8:00 am and 8:00 PM reminding her to take her medications. ??? Health - patient able to perform [...] dishes her back hurts. Reports Tylenol or [place] helps a little. Message sent to Bebe BHATTI) to find out the status on antichecking iron worker. 10/23/20: Independent with ADL's. 12/10/20: Patient having issues sweeping etc since right hand fx. Stated she will contact [employer] out if another antichecking iron worker will be helping her. Stated she prefers to wait until after she comes back from visiting her son in [place]. 12/27/20: Patient stated she is having issues getting a antichecking iron worker due to [employer] being short staffed. Stated she plans on calling them back today to find out status. Stated her pastors daughter put in application to help her about 1 1/2 months ago but she hasn't received a call. Stated she will call them today. 01/11/21: aquaculture worker will start on Thursday and help [...] Patient stated she is getting a new antichecking iron worker next week to help clean her home. Denies any recent falls. 04/10/21: Patient's ivkdhdec-di-boi is filling mediplanner for the patient. 04/29/21: Patient stated the antichecking iron worker did not show up again. Gave patient number to ELADIO. She wrote it down and will call for assistance. 05/24/21: Choreworker has not been coming and patient unsure why. Patient has number to call to check on status, but just hasn't done that yet. 07/29/21: Xqkfeqed-nw-iig fills pill community planner and has an alarm on it to take morning and evening. Shecooks her own meals and currently doesn't have a antichecking iron worker. Stated she doesn't need one right now. Upcoming Visit Appointments: Future Appointments Date Time Provider Department Center 07/30/2021 11:15 AM ALEX US 1 SEOUS [facility] 08/01/2021 1:00 PM ALEX INFUSION RM 4 [facility] 10/03/2021 1:40 PM Panda Moreno MD [facility] 10/29/2021 8:00 AM Gracy Shore MD [facility] Chronic Care Management- Time Spent with Patient Time spent with patient (minutes): 32 Time spent performing chart review (minutes): 8 Total time (minutes): 40 CASEY JOHNSON RN I reviewed the patient's status and education provided by CASEY JOHNSON RN. I agree with the findings and recommendations made. Reason for Visit Care Management (CCM Enrollment) Patient will be enrolled in CCM for DM, COPD,HF Chronic Care Management- Enrollment Has the patient been contacted for chronic care management?: yes Date of contact: 07/29/21 Time of contact: 12:52 PM CDT Patient response: interested Patient enrollment status: currently enrolled Summary of conditions addressed by enrollment: DM COPD HF Enrolling provider: Sanjeev Webster, DO I discussed CCM billable services with Radha Huynh and educated Radha on the applicable cost sharing, that only one provider can bill at a time, and Radha has the ability to stop CCM services at any time. Radha Huynh has been counseled on CCM billable services and agrees to participation. Care Team Patient Care Team Relationship Specialty Notifications Start End Sanjeev Webster, DO PCP - General FAMILY PRACTICE Admissions 09/25/20 Casey Johnson, press assistant and feeder (Ambulatory) REGISTERED NURSE Admissions 08/14/20 Health Maintenance Health Maintenance Topic Date Due ??? Lipid [...] Completed ??? Meningococcal Vaccine Aged Out Problem List Patient Active Problem List Diagnosis ??? Abnormal stress test ??? Bradycardia ??? Chronic anticoagulation ??? Coronary artery disease involving [place] coronary artery of [place] heart without angina pectoris ??? Diabetes mellitus [...] with current pathological fracture ??? Care Management Medications Current Outpatient Medications: ??? warfarin 6 MG tablet, Take 1 tablet (6 mg total) by mouth daily. (Patient taking differently: 9mg on Mondays and 6 mg the other days), Disp: 90 tablet, Rfl: 1 ??? acetaminophen 325 MG tablet, Take 650 mg by mouth daily as needed. , Disp: , Rfl: ??? albuterol sulfate HFA 108 (90 Base) MCG/ACT inhaler, Inhale 2 puffs into the lungs every 6 (six) hours as needed for Wheezing., Disp: 18 g, Rfl: 1 ??? ALPRAZolam 0.25 MG tablet, Take 1 tablet (0.25 mg total) by mouth 2 (two) times daily as neededfor Anxiety., Disp: 30 tablet, Rfl: 0 ??? amiodarone 200 MG tablet, Take 100 [...] prn), Disp: 30 mL, Rfl: 1 ??? Blood Glucose Monitoring Suppl (ONE TOUCH ULTRA 2) w/Device Kit, Use daily as directed, Disp: 1kit, Rfl: 0 ??? Cholecalciferol (VITAMIN D3) 25 MCG (1000 UT) Cap, Take 1,000 Units by mouth daily., Disp: , Rfl: ??? CONTOUR NEXT TEST test strip, USE 1 STRIP TO CHECK GLUCOSE THREE TIMES DAILY, Disp: , Rfl: ??? FEROSUL 325 (65 Fe) MG tablet, Take 1 tablet by mouth once daily, Disp: 90 tablet, Rfl: 0 ??? fluticasone propionate 50 MCG/ACT nasal spray, 2 sprays by Nasal route daily., Disp: , Rfl: ??? furosemide 20 MG tablet, Take 1 tab every other day., Disp: 90 tablet, Rfl: 1 ??? gabapentin 300 MG capsule, Take 1 capsule (300 mg total) by mouth 2 (two) times daily., Disp: 180 capsule, Rfl: 0 ??? Glucose Blood test strip, 1 strip by Other route daily as needed., Disp: 100 strip, Rfl: 0 ??? HYDROcodone-acetaminophen 10-325 MG tablet, Take 1 tablet by mouth every 6 (six) hours as needed for Pain. Indications: Chronic Pain Do not take with alprazolam, Disp: 30 tablet, Rfl: 0 ??? Lancets Misc, Test daily as directed, Disp: 100 each, Rfl: 1 ??? lidocaine 5 %, Apply pain patch to affected area. Change after 12 hours., Disp: 6 patch, Rfl: 0 ??? LISINOPRIL 40 MG tablet, Take 1 tablet by mouth once daily, Disp: 90 tablet, Rfl: 1 ??? OMEPRAZOLE 20 MG capsule, Take 1 capsule by mouth once daily, Disp: 90 capsule, Rfl: 0 ??? oxymetazoline 0.05 % nasal spray, Not to exceed 3 days. May use for 3 days then refrain for 3 days and repeat as needed., Disp: 20 mL, Rfl: 0 ??? VENLAFAXINE XR 150 MG 24 hr capsule, Take 1 capsule by mouth once daily, Disp: 90 capsule, Rfl:0 ??? warfarin 1 MG tablet, Take 3 tablets (3 mg total) by mouth see administration instructions. With 6mg tablet on , fridays and mondays, Disp: 270 tablet, Rfl: 1 Patient History Allergies Allergen Reactions ??? Tape Contact Dermatitis ??? Bacitracin Other (see comment) ??? Benzalkonium Other (see comment) ??? Gramicidin Other (see comment) ??? Hydrocortisone Other (see comment) ??? Neomycin Other (see comment) ??? Polymyxin B Other (see comment) Past Medical History: Diagnosis Date ??? Aneurysm [...] Relation Name Status ??? Father ??? Mother Existing Community/Promotions Director Referrals: None Community/Promotions Director Referrals: None Goals: Pt will understand signs and symptoms of chronic disease, Pt will attend scheduled visits with provider and Pt will take medications as directed Symptoms Management and Planned Intervention: Diabetes: Patient will manage diabetes and report any symptoms of hypo/hyperglycemia to CC or provider. CHF: Patient will recognize symptoms of CHF and report to physician should they occur. COPD: Patient will recognize symptoms of COPD exacerbation and report to the physician. If severe, patient will seek emergent treatment at [facility] or ER. Plan of Care: city wellness coordinator will continue to follow up by phone, provide resources when needed, educate on disease management and assess chronic conditions. CASEY JOHNSON, RN Cosigned by Sanjeev Webster DO at 08/01/2021 3:57 PM CDT * Sanjeev Webster DO - 07/29/2021 12:17 PM CDT 1. OK to do trial [...] 3. Pt was obtaining these through her lsat instructor previously. She can have either of us follow it,but it is imperative she have this checked as scheduled. She needs to do this. She is also needing to schedule a f/u with myself; she missed her last appointment if I recall correctly. documented in this encounter Plan of Treatment Upcoming Encounters Date Type Department Care Team (Late st Contact Info) Description 04/14/2024 2:00 PM CONSUMER SERVICES CONSULTANT Office Visit [facility] Medical Group Multispecialty Care - [facility] [address] [facility], [address] [place] [address] Julio Pulido MD [address] [place] [address] documented as of this encounter Goals Goal Patient Goal Type Associated Problems Recent Progress Patient-Stated? Author Health - patient able to perform ADLs independently General On track(2023 9:49 AM CDT) Casey Corona RN Note: 12/17/23: Patient stated she is independent with ASL's. Establish Plan for Symptom Monitoring-CHF General On track(2023 11:36 AM CONSUMER SERVICES CONSULTANT) Casey Corona RN Note: Patient will recognize [...] Symptom Monitoring-COPD General On track(2023 11:36 AM CONSUMER SERVICES CONSULTANT) Casey Corona RN Note: Patient will recognize [...] Symptom Monitoring-DM General On track(2023 4:33 PM CONSUMER SERVICES CONSULTANT) Casey Corona RN Note: Patient will manage [...] Symptom Monitoring-HTN General On track(2023 4:33 PM CONSUMER SERVICES CONSULTANT) No Casey Johnson, RN Note: Patient will [...] Chronic obstructive pulmonary disease, unspecified COPD type ([facility]) Diabetes mellitus ([facility]) Type II or unspecified type diabetes mellitus without mention of complication, not stated as uncontrolled Diastolic heart failure ([facility]) Unspecified diastolic heart failure documented in this encounter Additional Health Concerns Assessment Noted Time PHQ-9 Depression Total Score: 0 05/25/19 22 9:23 AM CDT documented as of this encounter Care Teams Heading Maker Relationship Specialty Start Date End Date Sanjeev Webster DO [address] [place] [id number] PCP - General FAMILY PRACTICE 09/25/20 Casey Johnson, RN [address] [place] [address] Marketing Operations Specialist (Ambulatory) REGISTERED NURSE 08/14/20 documented as of this encounter
--- OUTSIDE RECORDS SUMMARY | 2024-03-15 01:07 | XMS_ITS | Encounter Summary ---
Author Organization [facility] Address [facility] [place] [address] [place] [address] Care Team Providers Care Lining Repairer Name Role Phone Dianne Johnson RN Unavailable [phone] Sanjeev Webster DO Primary Care Provider + Reason for Referral * Imaging (Routine) - Closed Specialty Diagnoses / Procedures Referred By Contac t Referred To Contact RADIOLOGY Diagnoses Osteoporosis, unspecified osteoporosis type, unspecified pathological fracture presence Procedures BONE DENSITY/DEXA Panda Mares MD Referral ID Status Reason Start Date Expiration Date Visits Re quested Visits Authorized [id number] Closed 06/20/2021 07/20/2022 1 1 Reason for Visit * Imaging (Routine) - Closed Specialty Diagnoses / Procedures Referred By Contac t Referred To Contact RADIOLOGY Diagnoses Osteoporosis, unspecified osteoporosis type, unspecified pathological fracture presence Procedures BONE DENSITY/DEXA Panda Mares MD Referral ID Status Reason Start Date Expiration Date Visits Re quested Visits Authorized [id number] Closed 06/20/2021 07/20/2022 1 1 Encounter Details Date Type Department Care Team (Latest Contact Info) Description 07/15/2021 11:36 AM CDT - 07/15/2021 11:59 PM CDT Hospital Encounter [facility] Mammography [address] [place] [address] Panda Mares MD Discharge Disposition: Home or Self Care (Routine [...] Chronic obstructive pulmonary disease, unspecified COPD type ([facility]) Inhale 2 puffs into the [...] gangrene, without long-term current use of insulin ([facility]) Use daily as directed 1 [...] congestive heart failure, unspecified heart failure type ([facility]) Take 1 tab every other day. 90 tablet 1 2 10/22/19 22 gabapentin 300 MG capsuleIndications: Back pain Take 1 capsule (300 mg total) by mouth 2 (two) times daily. 180 capsule 01/17/20 22 Glucose Blood test stripIndications:Ty pe 2 diabetes mellitus with diabetic peripheral angiopathy without gangrene, without long-term current use of insulin ([facility]) 1 strip by Other route daily as needed. 100 strip 10/16/19 22 HYDROcodone-acetami nophen 10-325 MG tabletIndications:C hronic Pain Take 1 tablet by mouth every 6 (six) hours as needed for Pain. Indications: Chronic Pain Do not take with alprazolam 30 tablet 2 08/14/19 22 Lancets MiscIndications:Typ e 2 diabetes mellitus with diabetic peripheral angiopathy without gangrene, without long-term current use of insulin ([facility]) Test daily as directed 100 [...] as needed. 20 mL 1 10/16/19 22 VENLAFAXINE XR 150 MG 24 hr [...] st Contact Info) Description 04/14/2024 2:00 PM RAILWAY SWITCH OPERATOR Office Visit [facility] Medical Group Multispecialty Care - [address], [address] [place] [id number] Julio Pulido MD [address] [place] [address] documented as of this encounter Goals Goal Patient Goal Type Associated Problems Recent Progress Patient-Stated? Author Health - patient able to perform ADLs independently General On track(2023 9:49 AM CDT) Dianne Corona, RN Note: 12/17/23: Patient stated she is independent with ASL's. Establish Plan for Symptom Monitoring-CHF General On track(2023 11:36 AM RAILWAY SWITCH OPERATOR) Dianne Corona RN Note: Patient will [...] Symptom Monitoring-COPD General On track(2023 11:36 AM RAILWAY SWITCH OPERATOR) Dianne Corona RN Note: Patient will [...] Symptom Monitoring-DM General On track(2023 4:33 PM RAILWAY SWITCH OPERATOR) Dianne Corona RN Note: Patient will [...] Symptom Monitoring-HTN General On track(2023 4:33 PM RAILWAY SWITCH OPERATOR) Dianne Corona RN Note: Patient will [...] Date/Time Associated Diagnosis Comments BONE DENSITY/DEXA Routine 07/15/2021 12: 21 PM CDT Osteoporosis, unspecified osteoporosis type, unspecified pathological fracture presence documented in this encounter Results * BONE DENSITY/DEXA (07/15/2021 [...] documented in this encounter Visit Diagnoses Diagnosis Osteoporosis, unspecified osteoporosis type, unspecified pathological fracture presence documented in this encounter Additional Health Concerns Assessment Noted Time PHQ-9 Depression Total Score: 0 05/25/19 22 9:23 AM CDT documented as of this encounter Care Teams Lining Repairer Relationship Specialty Start Date End Date Sanejev Webster DO [address] [place] [phone] PCP - General FAMILY PRACTICE 09/25/20 Dianne Johnson, DALE [address] [place] [id number] Wire Photo Operator (Ambulatory) REGISTERED NURSE 08/14/20 documented as of this encounter
--- OUTSIDE RECORDS SUMMARY | 2024-03-15 01:07 | XMS_ITS | Encounter Summary ---
Author Organization [facility] Address [address] [place] [address]. [place] [address] [place] [address] Care Team Providers Care Track Inspector Name Role Phone Dianne Johnson RN Unavailable [phone] Sanjeev Webster DO Primary Care Provider + Reason for Visit * Reason Onset Date Comments Results 07/16/2021 Encounter Details Date Type Department Care Team (Late st Contact Info) Description 07/16/2021 Telephone [facility] Medical [facility] Diabetes and Endocrinology - [place] [id number] [facility] [place] [address] Panda Moreno MD Results Social History Tobacco Use Types Packs/Day [...] Progress Notes * Rafia Smith LPN - 07/16/2021 2:10 PM CDT Images from the original note were not included. MD Edward Christine Fadi Nurse Please inform pt her scan showed severe osteoporosis: will need to start prolia ( order in Also, will need to do US of the neck for her over activity of the parathyroid gland Called pt and informed of test results she voiced understanding said she is going out of town a fewdays next week Said she is fine with getting the prolia told her send everything over to [facility] infusion center they would run her insurance and get her scheduled documented in this encounter Plan of Treatment Upcoming Encounters Date Type Department Care Team (Late st Contact Info) Description 04/14/2024 2:00 PM EMPLOYMENT SECURITY OFFICER Office Visit [facility] Medical Group Multispecialty Care - [facility] [address] [facility], [address] [place] [address] Julio Pulido MD [address] [place] [address] documented as of this encounter Goals Goal Patient Goal Type Associated Problems Recent Progress Patient-Stated? Author Health - patient able to perform ADLs independently General On track(2023 9:49 AM CDT) Dianne Corona, RN Note: 12/17/23: Patient stated she is independent with ASL's. Establish Plan for Symptom Monitoring-CHF General On track(2023 11:36 AM EMPLOYMENT SECURITY OFFICER) Dianne Corona, RN Note: Patient will recognize [...] Symptom Monitoring-COPD General On track(2023 11:36 AM EMPLOYMENT SECURITY OFFICER) Dianne Corona RN Note: Patient will [...] Symptom Monitoring-DM General On track(2023 4:33 PM EMPLOYMENT SECURITY OFFICER) Dianne Corona, RN Note: Patient will [...] Symptom Monitoring-HTN General On track(2023 4:33 PM EMPLOYMENT SECURITY OFFICER) Dianne Corona RN Note: Patient will monitor [...] documented as of this encounter Care Teams Track Inspector Relationship Specialty Start Date End Date Sanjeev Webster DO [address] [place] [address] PCP - General FAMILY PRACTICE 09/25/20 Dianne Johnson, RN [address] [place], [place] [phone] Medicaid Analyst (Ambulatory) REGISTERED NURSE 08/14/20 documented as of this encounter
--- OUTSIDE RECORDS SUMMARY | 2024-03-15 01:07 | XMS_ITS | Encounter Summary ---
Author Organization [facility] Address [facility] [place] [address] [place] [address] Care Team Providers Care Energy Rater Name Role Phone Dianne Johnson RN Unavailable [phone] Sanjeev Webster DO Primary Care Provider + Reason for Visit * Reason Onset Date Comments Results 05/27/2021 Encounter Details Date Type Department Care Team (Late st Contact Info) Description 05/27/2021 Telephone [facility] Family & Internal Medicine [place] [place] [address] Sanjeev Webster DO [facility] [place] [address] Results Social History Tobacco Use [...] Progress Notes * Scarlett Guerrero MA - 05/27/2021 4:05 PM CDT Izzy notified and v/u * Sanjeev Webster DO - 05/27/2021 3:49 PM CDT Take 9 mg tomorrow night (or tonight if she hasn't taken it), then take as normally prescribed. Recheck PT/INR in 1 week. * Scarlett Guerrero MA - 05/27/2021 3:40 PM CDT Thursday she is on 9mg and 6 mg the other 6 days * Adrianne Elizabeth - 05/27/2021 3:31 PM CDT Izzy called back in, no one was free, I advised that someone will call her back. * Scarlett Guerrero MA - 05/27/2021 12:24 PM CDT lmtc 05/27/21 * Amina De La Cruz - 05/27/2021 11:32 AM CDT Plzhpcwl-wa-lyn is Izzy Velasquez [phone] * Scarlett Guerrero MA - 05/27/2021 11:18 AM CDT Patient will call back with Daughter in law phone number as she sets patients medications up and knows what dose f coumadin patient is on. Patient will keep endo appt, informed patient of the need for this and she v/u * Scarlett Guerrero MA - 05/27/2021 11:16 AM CDT ----- Message from Sanjeev Webster DO sent at 05/26/2021 1:30 PM CDT ----- PTH is still elevated. Pt still needs to f/u with endocrine as discussed; she has an appointment scheduled on 06/20/21 at 12:40 with endocrine. It is imperative she make this appointment, as this issue has been going on for over a year and she has not followed up for any additional testing or specialty appointments. PT/INR was low at 1.5. Clarify current dosing of warfarin to ensure we know dosingbefore any adjustments. Other labs are stable. documented in this encounter Plan of Treatment Upcoming Encounters Date Type Department Care Team (Late st Contact Info) Description 04/14/2024 2:00 PM SEWING MACHINE OPERATOR ZIPPER Office Visit [facility] Multispecialty Care - [address], [address] [place] [address] Julio Pulido MD [address] [place] [address] documented as of this encounter Goals Goal Patient Goal Type Associated Problems Recent Progress Patient-Stated? Author Health - patient able to perform ADLs independently General On track(2023 9:49 AM CDT) Dianne Corona, RN Note: 12/17/23: Patient stated she is independent with ASL's. Establish Plan for Symptom Monitoring-CHF General On track(2023 11:36 AM SEWING MACHINE OPERATOR ZIPPER) Dianne Corona RN Note: Patient will recognize [...] Monitoring-COPD General On track(2023 11:36 AM SEWING MACHINE OPERATOR ZIPPER) Dianne Corona RN Note: Patient will recognize [...] Monitoring-DM General On track(2023 4:33 PM SEWING MACHINE OPERATOR ZIPPER) Dianne Corona RN Note: Patient will manage [...] Monitoring-HTN General On track(2023 4:33 PM SEWING MACHINE OPERATOR ZIPPER) No Dianne Johnson, RN Note: Patient will [...] as of this encounter Care Teams Energy Rater Relationship Specialty Start Date End Date Sanjeev Webster DO [address] [place] [address] PCP - General FAMILY PRACTICE 09/25/20 Dianne Johnson, RN [address] [place] [address] Industrial Radiographer (Ambulatory) REGISTERED NURSE 08/14/20 documented as of this encounter
--- OUTSIDE RECORDS SUMMARY | 2024-03-15 01:07 | XMS_ITS | Encounter Summary ---
Author Organization [facility] Address [address] [place] [address]. [place] [address] [place] [address] Care Team Providers Care Monitor Tech Name Role Phone Dianne Johnson RN Unavailable [phone] Sanjeev Webster DO Primary Care Provider + Encounter Details Date Type Department Care Team (Latest Contact Info) Description 06/20/2021 Travel Social History Tobacco Use Types Packs/Day [...] Contact Info) Description 04/14/2024 2:00 PM TABLE AND DESK FINISHER Office Visit [facility] Multispecialty Care - [address], [address] [place] [address] Julio Pulido MD [address] [place] [address] documented as of this encounter Goals Goal Patient Goal Type Associated Problems Recent Progress Patient-Stated? Author Health - patient able to perform ADLs independently General On track(2023 9:49 AM CDT) Dianne Corona RN Note: 12/17/23: Patient stated she is independent with ASL's. Establish Plan for Symptom Monitoring-CHF General On track(2023 11:36 AM TABLE AND DESK FINISHER) Dianne Corona RN Note: Patient will recognize [...] Monitoring-COPD General On track(2023 11:36 AM TABLE AND DESK FINISHER) Dianne Corona, RN Note: Patient will [...] Monitoring-DM General On track(2023 4:33 PM TABLE AND DESK FINISHER) Dianne Corona RN Note: Patient will manage [...] Monitoring-HTN General On track(2023 4:33 PM TABLE AND DESK FINISHER) Dianne Corona RN Note: Patient will monitor [...] documented as of this encounter Care Teams Monitor Tech Relationship Specialty Start Date End Date Sanjeev Webster DO [address] [place] [address] PCP - General FAMILY PRACTICE 09/25/20 Dianne Johnson RN [address] [place] [address] Ict Security Specialist (Ambulatory) REGISTERED NURSE 08/14/20 documented as of this encounter
--- OUTSIDE RECORDS SUMMARY | 2024-03-15 01:07 | XMS_ITS | Encounter Summary ---
Author Organization [facility] Address [facility]6 [facility] [address] [place] [address] Care Team Providers Care Avionics Test Technician Name Role Phone Dianne Johnson RN Unavailable [phone] Sanjeev Webster DO Primary Care Provider + Encounter Details Date Type Department Care Team (Late st Contact Info) Description 07/30/2021 Patient Outreach [facility] Family & Internal Medicine [address] [address] Dianne Johnson, RN [address] [place] [address] Social History Tobacco Use Types [...] of this encounter Progress Notes * Dianne Jonhson RN - 07/30/2021 4:26 PM CDT Notified patient about message responded to on 07/29/21. See note for details in Epic. Please schedule patient for a QPA 1 mo f/u appointment she missed with on 07/19/21. FYI: Patient will stop Atorvastatin beginning tomorrow to see if this is what is causing muscle cramps in bilateral calves at night. Thank you. documented in this encounter Plan of Treatment Upcoming Encounters Date Type Department Care Team (Late st Contact Info) Description 04/14/2024 2:00 PM TARGETEER Office Visit [facility] Medical Group Multispecialty Care - [facility], [address] [place] [address] Julio Pulido MD 3 [place] [address] documented as of this encounter Goals Goal Patient Goal Type Associated Problems Recent Progress Patient-Stated? Author Health - patient able to perform ADLs independently General On track(2023 9:49 AM CDT) No Dianne Johnson RN Note: 12/17/23: Patient stated she is independent with ASL's. Establish Plan for Symptom Monitoring-CHF General On track(2023 11:36 AM TARGETEER) Dianne Corona RN Note: Patient will recognize [...] Symptom Monitoring-COPD General On track(2023 11:36 AM TARGETEER) Dianne Corona RN Note: Patient will recognize [...] Symptom Monitoring-DM General On track(2023 4:33 PM TARGETEER) Dianne Corona RN Note: Patient will manage [...] Symptom Monitoring-HTN General On track(2023 4:33 PM TARGETEER) Dianne Corona RN Note: Patient will monitor [...] as of this encounter Care Teams Avionics Test Technician Relationship Specialty Start Date End Date Sanjeev Webster DO [address] [place] [address] PCP - General FAMILY PRACTICE 09/25/20 Dianne Johnson, RN [address] [place], [place] [address] Marine Fuel Dock Attendant (Ambulatory) REGISTERED NURSE 08/14/20 documented as of this encounter
--- OUTSIDE RECORDS SUMMARY | 2024-03-15 01:07 | XMS_ITS | Encounter Summary ---
Author Organization [facility] Address [address] [place] [address]. [place] [address] [place] [address] Care Team Providers Care Food Packer Name Role Phone Dianne Johnson RN Unavailable [phone] Sanjeev Webster DO Primary Care Provider + Encounter Details Date Type Department Care Team (Latest Contact Info) Description 08/29/2021 Travel Social History Tobacco Use Types Packs/Day [...] st Contact Info) Description 04/14/2024 2:00 PM LABORATORY ENGINEER Office Visit [facility] Medical Group Multispecialty Care - [address], [address] [place] [address] Julio Pulido MD 3 [place] [address] documented as of this encounter Goals Goal Patient Goal Type Associated Problems Recent Progress Patient-Stated? Author Health - patient able to perform ADLs independently General On track(2023 9:49 AM CDT) Dianne Corona RN Note: 12/17/23: Patient stated she is independent with ASL's. Establish Plan for Symptom Monitoring-CHF General On track(2023 11:36 AM LABORATORY ENGINEER) Dianne Corona RN Note: Patient will [...] Symptom Monitoring-COPD General On track(2023 11:36 AM LABORATORY ENGINEER) Dianne Corona, RN Note: Patient will [...] Symptom Monitoring-DM General On track(2023 4:33 PM LABORATORY ENGINEER) Dianne Corona RN Note: Patient will [...] Symptom Monitoring-HTN General On track(2023 4:33 PM LABORATORY ENGINEER) Dianne Corona RN Note: Patient will [...] as of this encounter Care Teams Food Packer Relationship Specialty Start Date End Date Sanjeev Webster DO [address] [place] [address] PCP - General FAMILY PRACTICE 09/25/20 Dianne Johnson RN [address] [place] [address] Surgical Forceps Fabricator (Ambulatory) REGISTERED NURSE 08/14/20 documented as of this encounter
--- OUTSIDE RECORDS SUMMARY | 2024-03-15 01:07 | XMS_ITS | Encounter Summary ---
Author Organization [facility] Address [address] [place] [address]. [place] [address] [place] [address] Care Team Providers Care Flat Lock Operator Name Role Phone Dianne Johnson RN Unavailable [phone] Sanjeev Webster DO Primary Care Provider + Encounter Details Date Type Department Care Team (Latest Contact Info) Description 07/15/2021 Travel Social History Tobacco Use Types Packs/Day [...] st Contact Info) Description 04/14/2024 2:00 PM TELEPHONE COIN BOX COLLECTOR Office Visit [facility] Medical Group Multispecialty Care - [address], [address] [place] [address] Julio Pulido MD [address] [place] [address] documented as of this encounter Goals Goal Patient Goal Type Associated Problems Recent Progress Patient-Stated? Author Health - patient able to perform ADLs independently General On track(2023 9:49 AM CDT) iDanne Corona RN Note: 12/17/23: Patient stated she is independent with ASL's. Establish Plan for Symptom Monitoring-CHF General On track(2023 11:36 AM TELEPHONE COIN BOX COLLECTOR) Dianne Corona RN Note: Patient will recognize [...] Symptom Monitoring-COPD General On track(2023 11:36 AM TELEPHONE COIN BOX COLLECTOR) Dianne Corona, RN Note: Patient will recognize [...] Symptom Monitoring-DM General On track(2023 4:33 PM TELEPHONE COIN BOX COLLECTOR) Dianne Corona RN Note: Patient will manage [...] Symptom Monitoring-HTN General On track(2023 4:33 PM TELEPHONE COIN BOX COLLECTOR) Dianne Corona RN Note: Patient will monitor [...] documented as of this encounter Care Teams Flat Lock Operator Relationship Specialty Start Date End Date Sanjeev Webster DO [address] [place] [address] PCP - General FAMILY PRACTICE 09/25/20 Dianne Johnson RN [address] [place] [address] Still Runner (Ambulatory) REGISTERED NURSE 08/14/20 documented as of this encounter
--- OUTSIDE RECORDS SUMMARY | 2024-03-15 01:08 | XMS_ITS | Encounter Summary ---
Author Organization [facility] Address [facility]6 [facility]. [place], [place] [address] [place] [address] Care Team Providers Care Supervisor Drapery Hanging Name Role Phone Dianne Johnson RN Unavailable [phone] Sanjeev Montez DO Primary Care Provider + Reason for Visit * Reason Onset Date Comments Diarrhea 05/02/2021 Encounter Details Date Type Department Care Team (Late st Contact Info) Description 05/02/2021 Telephone [facility] Family & Internal Medicine [address] [address] Sanjeev Montez DO [facility] [place] [address] Diarrhea Social History Tobacco Use Types Packs/Day Years Used Date Smoking Tobacco: Never Smokeless Tobacco: Never Comments:non smoker Alcohol Use Standard Drinks/Week Comments Not Currently 0 (1 standard drink = 0.6 oz pur e alcohol) PHQ-2 Answer Date Recorded PHQ-2 Score - If the patient scores above 3, please move on to questions 3-9 0 11/22/2020 Comments No Sex and Gender Information Value Date Recorded Sex Assigned at Not on file Legal Sex Female 11:18 AM CDT Gender Identity Not on file Sexual Orientation Not on file documented as of this encounter Progress Notes * Trixie Jose MA - 05/02/2021 3:36 PM CST Patient informed to go to ER and voiced understanding. tn RIST FORMULATOR * LUCI Rueda - 05/02/2021 3:04 PM CST Go to the ER for evaluation and treatment RIST FORMULATOR * Latha Ring MA - 05/02/2021 1:50 PM CST The patient has the following symptom(s): Vomiting and Diarrhea since 3:30 this morning and cough. Patient states she can not keep anything down, not even ice. Patient denies fever Symptom(s) Started: Started at 3:30 this morning OTC Medications tried: Immodium. Call back #: [phone] Pharmacy: Pharmacy: Patient reports she does not have a way to brain picker any prescriptions Allergies: Allergies Allergen Reactions ??? Tape Contact Dermatitis ??? Bacitracin Other (see comment) ??? Benzalkonium Other (see comment) ??? Gramicidin Other (see comment) ??? Hydrocortisone Other (see comment) ??? Neomycin Other (see comment) ??? Polymyxin B Other (see comment) [facility] [address] [place] [address] Last visit with SANJEEV MONTEZ in FAMILY PRACTICE was on: 02/28/2021 in [facility] Future Appointments Date Time Provider Department Center 05/24/2021 9:20 AM Sanjeev Montez, DO [facility] 06/20/2021 12:40 PM Panda Moreno MD [facility] Current Outpatient Medications: ??? acetaminophen 325 MG [...] times daily. Use in each nostril as directed, Disp: 30 mL, Rfl: 1 ??? Blood Glucose Monitoring Suppl (ONE TOUCH ULTRA 2) w/Device Kit, Use daily as directed, Disp: 1kit, Rfl: 0 ??? cefdinir 300 MG Cap capsule, Take 1 capsule (300 mg total) by mouth 2 (two) times daily., Disp:20 capsule, Rfl: 0 ??? Cholecalciferol (VITAMIN D3) 25 MCG (1000 UT) Cap, Take 1,000 Units by mouth daily., Disp: , Rfl: ??? CONTOUR NEXT TEST test strip, USE 1 STRIP TO CHECK GLUCOSE THREE TIMES DAILY, Disp: , Rfl: ??? FEROSUL 325 (65 Fe) MG tablet, Take 1 tablet (325 mg total) by mouth daily., Disp: 90 tablet, Rfl: 1 ??? fluticasone propionate 50 MCG/ACT nasal spray, [...] Please call office regarding refills at earliest convenience.,Disp: 30 tablet, Rfl: 0 ??? Lancets Misc, Test daily as directed, Disp: 100 each, Rfl: 1 ??? lidocaine 5 %, Apply pain patch to affected area. Change after 12 hours., Disp: 6 patch, Rfl: 0 ??? LISINOPRIL 40 MG tablet, Take 1 tablet by mouth once daily, Disp: 90 tablet, Rfl: 1 ??? methylPREDNISolone, JENNIFER, 4 MG tablet, 6 TABLETS ON DAY ONE, 5 TABLETS DAY TWO, 4 TABLETS DAY THREE, 3 TABLETS DAY FOUR, 2 TABLETS DAY FIVE, AND 1 TABLET DAY SIX, Disp: 1 each, Rfl: 0 ??? omeprazole 20 MG capsule, Take 1 capsule (20 mg total) by mouth daily., Disp: 90 capsule, Rfl: 1 ??? oxymetazoline 0.05 % nasal spray, Not to exceed 3 days. May use for 3 days then refrain for 3 days and repeat as needed., Disp: 20 mL, Rfl: 0 ??? venlafaxine XR 150 MG 24 hr capsule, Take 1 capsule (150 mg total) by mouth daily., Disp: 90 capsule, Rfl: 1 ??? warfarin 1 MG tablet, Take 3 tablets (3 mg total) by mouth see administration instructions. With 6mg tablet on , fridays and mondays, Disp: 270 tablet, Rfl: 1 ??? warfarin 6 MG tablet, Take 1 tablet (6 mg total) by mouth daily. (Patient taking differently: 9mg on Mondays and 6 mg the other days), Disp: 90 tablet, Rfl: 1 RIST FORMULATOR documented in this encounter Plan of Treatment Upcoming Encounters Date Type Department Care Team (Late st Contact Info) Description 04/14/2024 2:00 PM COLORIST FORMULATOR Office Visit [facility] Group Multispecialty Care - [address], [address] [place] [address] Julio Pulido MD [address] [place] [address] documented as of this encounter Goals Goal Patient Goal Type Associated Problems Recent Progress Patient-Stated? Author Health - patient able to perform ADLs independently General On track(2023 9:49 AM CDT) Dianne Corona RN Note: 12/17/23: Patient stated she is independent with ASL's. Establish Plan for Symptom Monitoring-CHF General On track(2023 11:36 AM COLORIST FORMULATOR) Dianne Corona RN Note: Patient will recognize [...] Symptom Monitoring-COPD General On track(2023 11:36 AM COLORIST FORMULATOR) Dianne Corona RN Note: Patient will recognize [...] Symptom Monitoring-DM General On track(2023 4:33 PM COLORIST FORMULATOR) Dianne Corona RN Note: Patient will manage [...] Symptom Monitoring-HTN General On track(2023 4:33 PM COLORIST FORMULATOR) No Dianne Johnson RN Note: Patient will [...] Noted Time PHQ-9 Depression Total Score: 0 11/23/19 21 12:03 PM CDT documented as of this encounter Care Teams Supervisor Drapery Hanging Relationship Specialty Start Date End Date Sanjeev Montez DO [address] [place] [address] PCP - General FAMILY PRACTICE 09/25/20 Dianne Johnson, RN [address] [place] [address] Program Manager Transportation (Ambulatory) REGISTERED NURSE 08/14/20 documented as of this encounter
--- OUTSIDE RECORDS SUMMARY | 2024-03-15 01:08 | XMS_ITS | Encounter Summary ---
Author Organization [facility] Address [facility] [place] [address] [place] [address] Care Team Providers Care Photography Assistant Name Role Phone Dianne Johnson RN Unavailable [phone] Sanjeev Webster DO Primary Care Provider + Encounter Details Date Type Department Care Team (Latest Contact Info) Description 03/27/2021 Scan HEALTH INFO SRVCS Scanned, Documents Social [...] Exposure Response Date Recorded In the last month, have you been in contact with someone who was confirmed or suspected to have Coronavirus / COVID-19? No / Unsure 03/28/2021 10:03 AM PSYCHIATRIC TECHNICIAN documented as of this encounter Plan of Treatment Upcoming Encounters Date Type Department Care Team (Late st Contact Info) Description 04/14/2024 2:00 PM PSYCHIATRIC TECHNICIAN Office Visit [facility] Medical Group Multispecialty Care - [address], [address] [place] [address] Julio Pulido MD 3 [place] [address] documented as of this encounter Goals Goal Patient Goal Type Associated Problems Recent Progress Patient-Stated? Author Health - patient able to perform ADLs independently General On track(2023 9:49 AM CDT) No Dianne Johnson, RN Note: 12/17/23: Patient stated she is independent with ASL's. documented as of this encounter Visit Diagnoses Not on filedocumented in this encounter Additional Health Concerns Assessment Noted Time PHQ-9 Depression Total Score: 0 11/23/19 21 12:03 PM CDT documented as of this encounter Care Teams Photography Assistant Relationship Specialty Start Date End Date Sanjeev Webster DO [address] [place] [address] PCP - General FAMILY PRACTICE 09/25/20 Dianne Johnson, RN [facility] [place] [address] Aircraft Worker (Ambulatory) REGISTERED NURSE 08/14/20 documented as of this encounter
--- OUTSIDE RECORDS SUMMARY | 2024-03-15 01:08 | XMS_ITS | Encounter Summary ---
Author Organization [facility] Address [address] [place] [address]. [place] [address] [place] [address] Care Team Providers Care Assistant Women'S Basketball Coach Name Role Phone Dianne Johnson RN Unavailable [phone] Sanjeev Webster DO Primary Care Provider + Reason for Visit * Reason Comments Sleep Study (SCAN) Encounter Details Date Type Department Care Team ([facility] Contact Info) Description 04/07/2021 Scan HEALTH INFO SRVCS Scanned, Documents Sleep Study (SCAN) Social History Tobacco Use Types [...] Upcoming Encounters Date Type Department Care Team ([facility] Contact Info) Description 04/14/2024 2:00 PM CONSTRUCTION SITE MANAGER Office Visit [facility] Medical [facility] Multispecialty [place] [facility] - [address] [place] [address] Julio Pulido MD 3 [place] [address] documented as of this encounter Goals Goal Patient Goal Type Associated Problems Recent Progress Patient-Stated? Author Health - patient able to perform ADLs independently General On track(2023 9:49 AM CDT) Dianne Corona RN Note: 12/17/23: Patient stated she is independent with ASL's. Establish Plan for Symptom Monitoring-CHF General On track(2023 11:36 AM CONSTRUCTION SITE MANAGER) Dianne Corona RN Note: Patient will [...] Monitoring-COPD General On track(2023 11:36 AM CONSTRUCTION SITE MANAGER) Dianne Corona RN Note: Patient will [...] Monitoring-DM General On track(2023 4:33 PM CONSTRUCTION SITE MANAGER) No Johnson, Dianne R, RN Note: [...] Monitoring-HTN General On track(2023 4:33 PM CONSTRUCTION SITE MANAGER) Dianne Corona RN Note: Patient will monitor B/P several times per week , record readings and report to physician or CC if B/P consistently >130/80 Take your medications as prescribed. Follow up with your provider as scheduled. Take your blood pressure at least several times a week if able. documented as of this encounter Procedures Procedure Name Priority Date/Time Associated Diagnosis Comments SLEEP STUDY GENERIC (SCAN ORDER) 04/07/2021 documented in this encounter Results * SLEEP STUDY GENERIC (04/07/2021) 04/07/2021 Narrative 04/07/2021 Ordered by an unspecified provider. us Documents Scanned SCANNING Final Result documented in this encounter Visit Diagnoses Not on filedocumented in this encounter Additional Health Concerns Assessment Noted Time PHQ-9 Depression Total Score: 0 11/23/19 21 12:03 PM CDT documented as of this encounter Care Teams Assistant Women'S Basketball Coach Relationship Specialty Start Date End Date Sanjeev Webster DO [address] [place] [address] PCP - General FAMILY PRACTICE 09/25/20 Dianne Johnson, RN [address] [place] [address] Business Taxes Specialist (Ambulatory) REGISTERED NURSE 08/14/20 documented as of this encounter
--- OUTSIDE RECORDS SUMMARY | 2024-03-15 01:08 | XMS_ITS | Encounter Summary ---
Author Organization [facility] Address [facility] [place] [address] [place] [address] Care Team Providers Care Wind Energy Technician Name Role Phone Dianne Johnson RN Unavailable [phone] Sanjeev Webster DO Primary Care Provider + Reason for Visit * Reason Onset Date Comments Medication Request 04/12/2021 Encounter Details Date Type Department Care Team (Late st Contact Info) Description 04/12/2021 Telephone [facility] Medical Group Family & Internal Medicine [address] [address] Sanjeev Webster DO [facility] [place] [address] Medication Request Social History Tobacco [...] COVID-19? No / Unsure 03/28/2021 10:03 AM COFOUNDER documented as of this encounter Progress Notes * Adrianne Elizabeth - 04/12/2021 2:11 PM CST Patient states that her refrigerator went out and she had to move all the food that was in it and her freezer. Patient states that she hurt her back doing that. She is asking if we can call out any pain medication for her. [place] in [place] UNDER documented in this encounter Plan of Treatment Upcoming Encounters Date Type Department Care Team (Late st Contact Info) Description 04/14/2024 2:00 PM COFOUNDER Office Visit [facility] Medical Group [facility]ty Care - [facility] [address] [facility], [address] [place] [address] Julio Pulido MD 3 [place] [address] documented as of this encounter Goals Goal [...] as of this encounter Care Teams Wind Energy Technician Relationship Specialty Start Date End Date Sanjeev Webster DO [address] [place] [address] PCP - General FAMILY PRACTICE 09/25/20 Dianne Johnson, RN [address] [place] [address] Mobility Specialist (Ambulatory) REGISTERED NURSE 08/14/20 documented as of this encounter
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
--- OUTSIDE RECORDS SUMMARY | 2024-03-15 01:08 | XMS_ITS | Encounter Summary ---
Author Organization [facility] Address [facility] [place] [address] [place] [address] Care Team Providers Care Dispatcher Service Name Role Phone Dianne Johnson RN Unavailable [phone] Sanjeev Webster DO Primary Care Provider + Reason for Visit * Reason Onset Date Comments Error 03/28/2021 Encounter Details Date Type Department Care Team (Late st Contact Info) Description 03/28/2021 Telephone [facility] Medical Group Family & Internal Medicine [address] [address] Sanjeev Webster DO [facility] [place] [address] Error Social History Tobacco Use [...] COVID-19? No / Unsure 03/28/2021 10:03 AM CASHIER OR CHECKER STOCK CLERK documented as of this encounter Progress Notes * Natalee Brown RN - 03/28/2021 10:52 AM CST Error IER OR CHECKER STOCK CLERK documented in this encounter Plan of Treatment Upcoming Encounters Date Type Department Care Team (Late st Contact Info) Description 04/14/2024 2:00 PM CASHIER OR CHECKER STOCK CLERK Office Visit [facility] Medical Group Multispecialty Care - [facility] 3 [facility], [address] [place] [address] Julio Pulido MD 3 [place] [address] documented as of this encounter Goals Goal [...] documented as of this encounter Care Teams Dispatcher Service Relationship Specialty Start Date End Date Sanjeev Webster DO [address] [place] [address] PCP - General FAMILY PRACTICE 09/25/20 Dianne Johnson, RN [address] [place] [address] Live Source Operator (Ambulatory) REGISTERED NURSE 08/14/20 documented as of this encounter
--- OUTSIDE RECORDS SUMMARY | 2024-03-15 01:08 | XMS_ITS | Encounter Summary ---
Author Organization [facility] Address Count includes the [facility] [place] [address] [place] [address] Care Team Providers Care Radio Presenter Name Role Phone Dianne Johnson RN Unavailable [phone] Sanjeev Webster DO Primary Care Provider + Reason for Visit * Reason Onset Date Comments Anticoagulation 03/03/2021 Encounter Details Date Type Department Care Team (Late st Contact Info) Description 03/03/2021 Telephone [facility] Medical Group Family & Internal Medicine [address] [address] Sanjeev Webster DO [facility] [place] [address] Anticoagulation Social History Tobacco Use [...] have Coronavirus / COVID-19? No / Unsure 02/28/2021 1:16 PM VENDOR MANAGER documented as of this encounter Progress Notes * Sanjeev Webster DO - 03/13/2021 9:56 AM CST Noted. OR MANAGER * Adrianne Elizabeth - 03/12/2021 2:57 PM CST Patient went this morning to have her INR done at [facility] in [place]. She states that it was ordered by Dr. Paredes OR MANAGER * Scarlett Guerrero MA - 03/11/2021 4:42 PM CST [place] notified and v/u OR MANAGER * Scarlett Guerrero MA - 03/11/2021 4:41 PM CST [facility] 03/11/2021 OR MANAGER * Sanjeev Webster DO - 03/07/2021 6:08 PM CST Pt needs to get this done MEGAN. OR MANAGER * Latha Ring MA - 03/07/2021 4:34 PM CST No results in [facility] for 02/28, last date of 02/20 OR MANAGER * Scarlett Guerrero MA - 03/06/2021 2:31 PM CST No answer vm full. 03/06/21 OR MANAGER * Sanjeev Webster DO - 03/05/2021 7:53 AM CST Can we inquire with [facility]? It does not typically take 5 days to obtain this. Also, the is the same day as our office visit and the patient didn't know when she was going to check it again. Thereis another [facility] that needs addressed. OR MANAGER * Scarlett Guerrero MA - 03/04/2021 1:[address] Paredes # is [phone]. Patient rechecked her INR on 02/28/21 and they are awaiting the results per Dr Rose office OR MANAGER * Sanjeev Webster DO - 03/03/2021 9:35 PM CST Can we reach out to Dr. Ordoñez's office to ensure pt has a scheduled PT/INR? It was noted to be supratherapeutic and pt wasn't exactly sure of her planned date to recheck this. OR MANAGER documented in this encounter Plan of Treatment Upcoming Encounters Date Type Department Care Team (Late st Contact Info) Description 04/14/2024 2:00 PM VENDOR MANAGER Office Visit [facility] Medical Group Multispecialty Care - [facility] 3 [facility], [address] [place] [address] Julio Pulido MD 3 [place] [address] documented as of this encounter Goals Goal [...] as of this encounter Care Teams Radio Presenter Relationship Specialty Start Date End Date Sanjeev Webster DO [address] [place] [address] PCP - General FAMILY PRACTICE 09/25/20 Dianne Johnson, RN [address] [place] [address] Loss Prevention Coordinator (Ambulatory) REGISTERED NURSE 08/14/20 documented as of this encounter
--- OUTSIDE RECORDS SUMMARY | 2024-03-15 01:08 | XMS_ITS | Encounter Summary ---
Author Organization [facility] Address [facility] [place] [address] [place] [address] Care Team Providers Care Director Digital Communications Name Role Phone Dianne Johnson RN Unavailable [phone] Sanjeev Webster DO Primary Care Provider + Reason for Visit * Reason Onset Date Comments Hospital Follow Up 04/10/2021 TCM Week #3 Encounter Details Date Type Department Care Team (Late st Contact Info) Description 04/10/2021 Patient Outreach [facility] Medical Group Family & Internal Medicine [address] [address] Court Robles, RN [address] [place] [address] Hospital Follow Up (TCM Week #3) Social History Tobacco Use Types Packs/Day Years [...] COVID-19? No / Unsure 03/28/2021 10:03 AM MINING ANALYST documented as of this encounter Progress Notes * Court Robles RN - 04/10/2021 12:09 PM CST Hospital Follow Up Call TCM Week: Week #3 Did patient attend PCP TCM appointment? yes Have follow up specialists appointments been scheduled? no Have follow up labs been ordered? no Does patient have difficulty affording medication: no Brief description of patient status: Patient continues to have shooting pains in the back. Between that and the use of the CPAP every night, patient doesn't sleep very well. Patient denies any increase in shortness of breath. Last bowel movement was the day before yesterday. Continues to take iron and knows this can cause constipation. No s/s of bleeding noted related to warfarin therapy. Next INR is due tomorrow, but due to inclement weather, patient may not be able to get it done tomorrow. Patient reports PFT was done and is suppose to go back today but the bad weather may prevent that. Anxiety has been under control except when freezer and refrigerator went out yesterday, but luckily it was fixed. Patient concerns or urgent matters that need addressed: Needs a refill on hydrocodone- acetaminophen Goals: Goals ??? Establish Plan for Symptom Monitoring 09/25: [...] morning and no s/s of hypo/hyperglycemia reported. 03/14/21: chronic pain continues with right wrist/hand. New pain to left knee that shoots up to the hip x one week now. No falls reported. 03/27/21: Patient denies any issues with sob since hospitalization. Denies CP, recent falls, s/s of bleeding, or dizziness at this time. Encouraged patient to monitor s/s closely and report the onset of changes. 04/03/21: Denies worsening dyspnea, LE swelling or CP. Stated sob has improved when she takes alprazolam. Seen Cardiology yesterday and stated everything went good. 04/10/21: No increase in shortness of breath. CPAP being worn at bedtime. No signs of bleeding related to warfarin therapy. Next INR due tomorrow, weather permitting. ??? Health - patient able to perform [...] dishes her back hurts. Reports Tylenol or [place] helps a little. Message sent to Bebe BHATTI) to find out the status on leather production worker. 10/23/20: Independent with ADL's. 12/10/20: Patient having issues sweeping etc since right hand fx. Stated she will contact [employer] out if another leather production worker will be helping her. Stated she prefers to wait until after she comes back from visiting her son in [place]. 12/27/20: Patient stated she is having issues getting a leather production worker due to company being short staffed. Stated she plans on calling them back today to find out status. Stated her pastors daughter put in application to help her about 1 1/2 months ago but she hasn't received a call. Stated she will call them today. 01/11/21: foot worker will start on Thursday and help [...] Patient stated she is getting a new leather production worker next week to help clean her home. Denies any recent falls. 04/10/21: Patient's [id number] is filling mediplanner for the patient. Plan of Care: CC will continue to follow the patient by phone and patient is agreeable with this. NG ANALYST documented in this encounter Plan of Treatment Upcoming Encounters Date Type Department Care Team (Late st Contact Info) Description 04/14/2024 2:00 PM MINING ANALYST Office Visit [facility] Medical Group Multispecialty Care - [facility] 3 [facility], [address] [place] [address] Julio Pulido MD 3 [place] [address] documented as of this encounter Goals Goal [...] as of this encounter Care Teams Director Digital Communications Relationship Specialty Start Date End Date Sanjeev Webster DO [address] [place] [address] PCP - General FAMILY PRACTICE 09/25/20 Dianne Johnson, RN [address] [place] [address] Adjunct Professor Of English (Ambulatory) REGISTERED NURSE 08/14/20 documented as of this encounter
--- OUTSIDE RECORDS SUMMARY | 2024-03-15 01:08 | XMS_ITS | Encounter Summary ---
Author Organization [facility] Address [facility], [id number] [facility]. [place], [place] [address] [place] [address] Care Team Providers Care Aoc Airspace Control Officer Name Role Phone Dianne Johnson RN Unavailable [phone] Sanjeev Webster DO Primary Care Provider + Reason for Visit * Reason Onset Date Comments Advise 05/06/2021 Encounter Details Date Type Department Care Team (Late st Contact Info) Description 05/06/2021 Telephone [facility] Medical Group Family & Internal Medicine [address] [address] Sanjeev Webster DO [facility] [place] [address] Advise Social History Tobacco Use [...] Progress Notes * Scarlett Guerrero MA - 05/06/2021 2:21 PM CST Patient notified and v/u GER GENERAL * MARU Hodge - 05/06/2021 1:22 PM CST If blood sugars have been OK, can just push fluids for a couple of days. I'm not seeing any diabetic meds, like something she may need to stop. GER GENERAL * Scarlett Guerrero MA - 05/06/2021 1:17 PM CST Symptoms 2-3 days but hasnt really eaten anything in a week. Patient states she has about 4 BM's daily but they are small, usually just enough to make a mess. GER GENERAL * MARU Hodge - 05/06/2021 1:11 PM CST 2-3 days or one week? As long as she is staying hydrated, should bee OK for a day or so. How many diarrhea BM's per day? GER GENERAL * Scarlett Guerrero MA - 05/06/2021 1:06 PM CST Patient states for the last 2-3 days she has had n/v/d and cough. The nausea and vomiting resolved but she still has diarrhea and cough. She tried immodium and it hasnt helped. She is drinking gatorade and has eaten a few saltine crackers and rice but no real food in a week. She is diabetic and hasa mechanical heart valve. What do you recommend? GER GENERAL documented in this encounter Plan of Treatment Upcoming Encounters Date Type Department Care Team (Late st Contact Info) Description 04/14/2024 2:00 PM MANAGER GENERAL Office Visit [facility] Medical Group Multispecialty Care - [facility] 3 [facility], [address] [place] [address] Julio Pulido MD 3 [place] [address] documented as of this encounter Goals Goal Patient Goal Type Associated Problems Recent Progress Patient-Stated? Author Health - patient able to perform ADLs independently General On track(2023 9:49 AM CDT) Dianne Corona RN Note: 12/17/23: Patient stated she is independent with ASL's. Establish Plan for Symptom Monitoring-CHF General On track(2023 11:36 AM MANAGER GENERAL) Dianne Corona RN Note: Patient will recognize [...] Monitoring-COPD General On track(2023 11:36 AM MANAGER GENERAL) Dianne oCrona RN Note: Patient will recognize [...] Monitoring-DM General On track(2023 4:33 PM MANAGER GENERAL) No Johnson, Dianne R, RN Note: Patient [...] Monitoring-HTN General On track(2023 4:33 PM MANAGER GENERAL) No Dianne Johnson RN Note: Patient will [...] documented as of this encounter Care Teams Aoc Airspace Control Officer Relationship Specialty Start Date End Date Sanjeev Webster DO [address] [place] [address] PCP - General FAMILY PRACTICE 09/25/20 Dianne Johnson, RN [address] [place] [address] Soda Maker (Ambulatory) REGISTERED NURSE 08/14/20 documented as of this encounter
--- OUTSIDE RECORDS SUMMARY | 2024-03-15 01:08 | XMS_ITS | Encounter Summary ---
Author Organization [facility] Address [facility]6 [facility] [place] [address] [place] [address] Care Team Providers Care Corporate Event Planner Name Role Phone Casey Johnson RN Unavailable [phone] Sanjeev Webster DO Primary Care Provider + Reason for Visit * Reason Onset Date Comments Care Management 04/03/2021 Encounter Details Date Type Department Care Team (Late st Contact Info) Description 04/03/2021 Patient Outreach [facility] Family & Internal Medicine [address] [address] Casey Johnson RN [address] [place] [address] Care Management Social History Tobacco [...] COVID-19? No / Unsure 03/28/2021 10:03 AM SHELL WORKER documented as of this encounter Progress Notes * Casey Johnson, RN - 04/03/2021 11:59 AM CST Images from the original note were not included. Chronic Care Management: 04/03/21: Contacted Rito at [facility] medical records to find out if D/C summary and D/C medication list was available since [facility] did not have it for patient's appointment on 03/28/21. At that time Fátima with [facility] medical records stated the doctor has up to 20 days to sign off and it was not available on 03/28/21. Rito stated it's been signed off on now and he can fax it over. 04/03/21: Received information from Rito. Faxed a copy to at [phone]. 04/03/21: Contacted Cardiology office at [phone] and spoke to Halina. Requesting office visit note from yesterday's appointment. 04/03/21: Received office visit note from Cardiology. Copy of note faxed to Evita. Patient concerns or urgent matters that need addressed: None at this time. Patient Status: Patient stated she would like to know more about diabetic diets. Informed patient that placed a referral for her to see an Ethnic Studies Professor. After reviewing referral information with patient she stated [facility] sent her a letter stating they will not see her anymore sinceshe missed two appointments. Patient stated she was sick when she had appointments and didn't mean to miss them. Informed patient that CC will reach out to the referral department and let them know. Contacted Chanel with the referral department and stated she will add a message to [facility] about the conversation CC had with patient today and see if they will go a head and schedule her one more time. staffing and scheduling coordinator will continue to follow. Plan of Care: staffing and scheduling coordinator will continue to follow up by phone, provide resources when needed, educate on disease management and assess chronic conditions. Patient Goals: Goals Addressed This Visit's Progress ??? Establish Plan for Symptom Monitoring On track 09/25: Patient has been monitoring her arm [...] Cardiology yesterday and stated everything went good. ??? Health - patient able to perform [...] dishes her back hurts. Reports Tylenol or [place] helps a little. Message sent to Bebe BHATTI) to find out the status on bindery worker. 10/23/20: Independent with ADL's. 12/10/20: Patient having issues sweeping etc since right hand fx. Stated she will contact [employer] out if another bindery worker will be helping her. Stated she prefers to wait until after she comes back from visiting her son in [place]. 12/27/20: Patient stated she is having issues getting a bindery worker due to company being short staffed. Stated she plans on calling them back today to find out status. Stated her pastors daughter put in application to help her about 1 1/2 months ago but she hasn't received a call. Stated she will call them today. 01/11/21: hide worker will start on Thursday and help [...] a walker if needed. Patient goes to [employer] (take of pounds sensibly) on Thursday mornings. 04/03/21: Patient stated she is getting a new bindery worker next week to help clean her home. Denies any recent falls. Upcoming Visit Appointments: No future appointments. Quality care gaps: Health Maintenance Topic Date Due ??? Lipid Panel Never done ??? Diabetes: Retinopathy Eye Exam Never done ??? DEXA SCAN (GENERAL) Never done ??? Medicare Wellness Visit Never done ??? Zoster Vaccines (2 of 3) 02/19/2016 ??? Hemoglobin A1C 2021 ??? DTaP, Tdap and Td Vaccines (3 - Td or Tdap) 09/05/2030 ??? Influenza Adult Completed ??? Pneumococcal Vaccine: 65+ Years Completed ??? COVID-19 Vaccine Completed ??? Meningococcal Vaccine Aged Out Problem List: Patient Active Problem List Diagnosis ??? Abnormal stress test ??? Bradycardia ??? Chronic anticoagulation ??? Coronary artery disease involving [place] coronary artery of [place] heart without angina pectoris ??? Diabetes mellitus [...] daily as directed 1 kit 0 ??? cefdinir 300 MG Cap capsule Take 1 capsule [...] mouth once daily 90 tablet 1 ??? methylPREDNISolone, JENNIFER, 4 MG tablet 6 TABLETS ON DAY ONE, 5 TABLETS DAY TWO, 4 TABLETS DAY THREE, 3 TABLETS DAY FOUR, 2 TABLETS DAY FIVE, AND 1 TABLET DAY SIX 1 each 0 ??? omeprazole 20 MG capsule Take 1 [...] mg total) by mouth see administration instructions. [id number] tablet on , fridays and mondays 270 tablet 1 ??? warfarin 6 MG tablet Take 1 tablet (6 mg total) by mouth daily. (Patient taking differently: 9 mg on Mondays and 6 mg the other days) 90 tablet 1 No current facility-administered medications for this visit. CASEY JOHNSON RN L WORKER documented in this encounter Plan of Treatment Upcoming Encounters Date Type Department Care Team (Late st Contact Info) Description 04/14/2024 2:00 PM SHELL WORKER Office Visit [facility] Multispecialty Care - [address], [address] [place] [id number] Julio Pulido MD [address] [place] [address] documented as of this encounter Goals Goal [...] as of this encounter Care Teams Corporate Event Planner Relationship Specialty Start Date End Date Sanjeev Webster DO [address] [place], [place] [id number] PCP - General FAMILY PRACTICE 09/25/20 Casey Johnson, RN [address] [place] [address] Electrician Yard (Ambulatory) REGISTERED NURSE 08/14/20 documented as of this encounter
--- OUTSIDE RECORDS SUMMARY | 2024-03-15 01:08 | XMS_ITS | Encounter Summary ---
Author Organization [facility] Address [facility]6 [facility] [place] [address] [place] [address] Care Team Providers Care Pediatric Registered Nurse Name Role Phone Dianne Johnson RN Unavailable [phone] Sanjeev Webster DO Primary Care Provider + Reason for Visit * Reason Onset Date Comments Information 03/28/2021 Encounter Details Date Type Department Care Team (Late st Contact Info) Description 03/28/2021 Patient Outreach [facility] Family & Internal Medicine [address] [address] Dianne Johnson, RN [address] [place] [address] Information Social History Tobacco Use Types Packs/Day [...] COVID-19? No / Unsure 02/28/2021 1:16 PM LEGAL ADVISOR documented as of this encounter Progress Notes * Dianne Johnson RN - 03/28/2021 8:33 AM CST Izzy ([id number]) called and left a message last night that patient is scheduled to see Cardiology on 04/02/21. Contacted Cardiology at [phone] and spoke to Halina. Stated patient is scheduled to see Ana Maria Hess ROUTE SPECIALIST with and office on 04/02/21. Contacted Jethro with the referral department at [phone] regarding the above appointment. Requesting Cardiology referral be completed for 04/02/21 appointment. L ADVISOR * Dianne Johnson RN - 03/28/2021 8:33 AM CST 03/28/21: Contacted Fátima with [facility] medical records. Informed that patient is scheduled to see Padmini Denise ROUTE SPECIALIST this morning at 10:00 am. Requesting D/C summary and D/C medication list. Fátima stated it hasn't been signed off on yet and she is unable to release it. Stated the doctor has 20days to sign off on it. Kindly informed Fátima that the PCP has up to 10 days to see the patient after D/C from hospital and this information is very important but CC understands it's out of her control. Fátima stated she will check before appointment this morning and if it's signed off on she will faxit over. Informed Fátima that CC did receive patient's after visit packet with her updated medicationlist yesterday and this was faxed to 's office yesterday which will help. Thanked Jolene ortega. L ADVISOR documented in this encounter Plan of Treatment Upcoming Encounters Date Type Department Care Team (Late st Contact Info) Description 04/14/2024 2:00 PM LEGAL ADVISOR Office Visit [facility] Multispecialty Care - [facility] 3 [facility], [address] [place] [address] Julio Pulido MD 3 [place] [address] documented as of this encounter Goals Goal [...] as of this encounter Care Teams Pediatric Registered Nurse Relationship Specialty Start Date End Date Sanjeev Webster DO [address] [place] [address] PCP - General FAMILY PRACTICE 09/25/20 Dianne Johnson, RN [facility]1 [place] [address] Mrb Engineer (Ambulatory) REGISTERED NURSE 08/14/20 documented as of this encounter
--- OUTSIDE RECORDS SUMMARY | 2024-03-15 01:08 | XMS_ITS | Encounter Summary ---
Author Organization [facility] Address [address] [place] [address]. [place] [address] [place] [address] Care Team Providers Care Director Loan Name Role Phone Dianne Johnson RN Unavailable [phone] Sanjeev Webster DO Primary Care Provider + Reason for Visit * Reason Comments Lab (SCAN) Encounter Details Date Type Department Care Team (Latest Contact Info) Description 03/21/2021 Scan HEALTH INFO SRVCS Scanned, Documents Lab [...] COVID-19? No / Unsure 03/28/2021 10:03 AM MANAGER CENTER documented as of this encounter Plan of Treatment Upcoming Encounters Date Type Department Care Team (Late st Contact Info) Description 04/14/2024 2:00 PM MANAGER CENTER Office Visit [facility] Multispecialty Care - [address], [address] [place] [address] Julio Pulido MD 3 [place] [address] documented as of this encounter Goals Goal Patient Goal Type Associated Problems Recent Progress Patient-Stated? Author Health - patient able to perform ADLs independently General On track(2023 9:49 AM CDT) No Dianne Johnson, RN Note: 12/17/23: Patient stated she is independent with ASL's. documented as of this encounter Procedures Procedure Name Priority Date/Time Associated Diagnosis Comments OUTSIDE LAB COVID-19 (SCAN ORDER) Routine 03/21/2021 documented in this encounter Results * OUTSIDE LAB COVID-19 (SCAN) (03/21/2021) CORONAVIRUS SARS COV 2 PCR (RESP) NOT DETECTED NOT DETECTED [facility] 03/21/2021 us Documents Scanned SCANNING Final Result [facility] documented in this encounter Visit Diagnoses Not on filedocumented in this encounter Additional Health Concerns Assessment Noted Time PHQ-9 Depression Total Score: 0 11/23/19 21 12:03 PM CDT documented as of this encounter Care Teams Director Loan Relationship Specialty Start Date End Date Sanjeev Webster DO [address] [place] [address] PCP - General FAMILY PRACTICE 09/25/20 Dianne Johnson, RN [address] [place] [address] Instructional Technology Coach (Ambulatory) REGISTERED NURSE 08/14/20 documented as of this encounter
--- OUTSIDE RECORDS SUMMARY | 2024-03-15 01:08 | XMS_ITS | Encounter Summary ---
Author Organization [facility] Address [facility]6 [facility] [place] [address] [place] [address] Care Team Providers Care Golf Course Patroller Name Role Phone Dianne Johnson RN Unavailable [phone] Sanjeev Webster DO Primary Care Provider + Reason for Visit * Reason Onset Date Comments Care Management 04/16/2021 Encounter Details Date Type Department Care Team (Late st Contact Info) Description 04/16/2021 Patient Outreach [facility] Family & Internal Medicine [address] [address] Dianne Johnson RN [address] [place] [address] Care Management Social History Tobacco [...] COVID-19? No / Unsure 03/28/2021 10:03 AM RN IMCU documented as of this encounter Progress Notes * Dianne Johnson RN - 04/16/2021 2:38 PM CST Chronic Care Management: 04/16/21: Left message for patient to return phone call. IMCU documented in this encounter Plan of Treatment Upcoming Encounters Date Type Department Care Team (Late st Contact Info) Description 04/14/2024 2:00 PM RN IMCU Office Visit [facility] Multispecialty Care - [facility] 3 [facility], [address] [place] [address] Julio Pulido MD 3 [place] [address] documented as of this encounter Goals Goal [...] documented as of this encounter Care Teams Golf Course Patroller Relationship Specialty Start Date End Date Sanjeev Webster DO [address] [place] [address] PCP - General FAMILY PRACTICE 09/25/20 Dianne Johnson, RN [address] [place] [address] Bundle Person (Ambulatory) REGISTERED NURSE 08/14/20 documented as of this encounter
--- OUTSIDE RECORDS SUMMARY | 2024-03-15 01:08 | XMS_ITS | Encounter Summary ---
Author Organization [facility] Address [facility]6 [facility] [place] [address] [place] [address] Care Team Providers Care Candy Roller Name Role Phone Dianne Johnson RN Unavailable [phone] Sanjeev Webster DO Primary Care Provider + Encounter Details Date Type Department Care Team (Latest Contact Info) Description 03/14/2021 Scan HEALTH INFO SRVCS Scanned, Documents Social [...] COVID-19? No / Unsure 02/28/2021 1:16 PM SHOP HELPER documented as of this encounter Plan of Treatment Upcoming Encounters Date Type Department Care Team (Late st Contact Info) Description 04/14/2024 2:00 PM SHOP HELPER Office Visit [facility] Group Multispecialty Care - [address], [address] [place] [address] Julio Pulido MD 3 [place] [address] documented as of this encounter Goals Goal [...] documented as of this encounter Care Teams Candy Roller Relationship Specialty Start Date End Date Sanjeev Webster DO [address] [place] [address] PCP - General FAMILY PRACTICE 09/25/20 Dianne Johnson, RN [facility] [place] [address] Mineral Industry Teacher (Ambulatory) REGISTERED NURSE 08/14/20 documented as of this encounter
--- OUTSIDE RECORDS SUMMARY | 2024-03-15 01:08 | XMS_ITS | Encounter Summary ---
Author Organization [facility] Address [facility] [facility] [place] [address] [place] [address] Care Team Providers Care Family Practice Physician Assistant Name Role Phone Dianne Johnson RN Unavailable [phone] Sanjeev Webster DO Primary Care Provider + Encounter Details Date Type Department Care Team (Latest Contact Info) Description 03/29/2021 Scan HEALTH INFO SRVCS Scanned, Documents Social [...] COVID-19? No / Unsure 03/28/2021 10:03 AM WOOD BOATBUILDER documented as of this encounter Plan of Treatment Upcoming Encounters Date Type Department Care Team (Late st Contact Info) Description 04/14/2024 2:00 PM WOOD BOATBUILDER Office Visit [facility] Multispecialty Care - [address], [address] [place] [address] Julio Pulido MD 3 [place] [address] documented as of this encounter Goals Goal [...] as of this encounter Care Teams Family Practice Physician Assistant Relationship Specialty Start Date End Date Sanjeev Webster DO [address] [place] [address] PCP - General FAMILY PRACTICE 09/25/20 Dianne Johnson, RN [facility]1 [place] [address] Bioinformatics Team Member (Ambulatory) REGISTERED NURSE 08/14/20 documented as of this encounter
--- OUTSIDE RECORDS SUMMARY | 2024-03-15 01:08 | XMS_ITS | Encounter Summary ---
Author Organization [facility] Address [facility]6 [facility] [address] [place] [address] Care Team Providers Care Real Estate Acquisition Analyst Name Role Phone Dianne Johnson RN Unavailable [phone] Sanjeev Webster DO Primary Care Provider + Reason for Visit * Reason Onset Date Comments Care Management 03/14/2021 Encounter Details Date Type Department Care Team (Late st Contact Info) Description 03/14/2021 Patient Outreach [facility] Group Family & Internal Medicine [address] [address] Stu Ruiz RN [address] [place] [address] Care Management Social History Tobacco [...] COVID-19? No / Unsure 02/28/2021 1:16 PM SPENT GRAIN DRYER documented as of this encounter Progress Notes * Stu Ruiz RN - 03/14/2021 11:49 AM CST Chronic Care Management: Patient concerns or urgent matters that need addressed: Pain in left knee x one week that shoots upto the hip. No falls. Patient reports that it hurts worse when laying down and patient tries to straighten the leg, but reports it happens sometimes when walking. Patient will be calling Dr. Mcpherson see if she can get another knee injection. Patient Status: Patent continues to have chronic pain and sometimes takes 2 tabs of hydrocodone at time. CC instructed patient that RX is for one tablet at a time and patient will end up running out of the 30 day supply early and should take the pain meds as directed. Patient voices understanding. FBSs are running 135-140 and patient forgot to check it this morning. CC instructed patient on the importance of watching sugars, carbs and starches and patient voiced understanding, but would like something to follow by. Patient missed appts with the automatic mold sander and reports couldn't find the number and didn't know how to message them and now patient cannot be seen there, per letter from them.CC instructed patient on how important it is to keep all scheduled appts with the doctors. Appetiteis fair and nurse instructed patient to eat small, frequent meals if a big meal is not wanted. No falls reported and patient using cane. Plan of Care: CC will continue to follow patient by phone and patient is agreeable.. Patient Goals: Goals Addressed This Visit's Progress [...] x one week now. No falls reported. ??? Health - patient able to [...] dishes her back hurts. Reports Tylenol or [place] helps a little. Message sent to Bebe BHATTI) to find out the status on channel worker. 10/23/20: Independent with ADL's. 12/10/20: Patient having issues sweeping etc since right hand fx. Stated she will contact [employer] out if another channel worker will be helping her. Stated she prefers to wait until after she comes back from visiting her son in [place]. 12/27/20: Patient stated she is having issues getting a channel worker due to [employer] being short staffed. Stated she plans on calling them back today to find out status. Stated her pastors daughter put in application to help her about 1 1/2 months ago but she hasn't received a call. Stated she will call them today. 01/11/21: wallboard worker will start on Thursday and help [...] Patient able to bathe and dress self. Upcoming Visit Appointments: No future appointments. Quality [...] Chronic anticoagulation ??? Coronary artery disease involving [place] coronary artery of [place] heart without angina pectoris ??? Diabetes mellitus [...] mg total) by mouth see administration instructions. Futs4ga tablet on , fridays and mondays 270 tablet 1 ??? warfarin 6 MG tablet Take 1 tablet (6 mg total) by mouth daily. 90 tablet 1 No current facility-administered medications for this visit. STU RUIZ RN T GRAIN DRYER * Scarlett Elias MA - 03/14/2021 11:49 AM CST Patient states she has not had problems taking oral steroids that she is aware of. Medrol DP sent to pharmacy T GRAIN DRYER * Scarlett Elias MA - 03/14/2021 11:49 AM CSTAddended by: SCARLETT ELIAS on: 03/14/2021 03:36 PM Modules accepted: Orders T GRAIN DRYER * Sanjeev Webster DO - 03/14/2021 11:49 AM CST Can do a medrol dose pack; don't have many other options for her. Please ensure she can take oral steroids before sending; she has a non-specified reaction to hydrocortisone. T GRAIN DRYER documented in this encounter Plan of Treatment Upcoming Encounters Date Type Department Care Team (Late st Contact Info) Description 04/14/2024 2:00 PM SPENT GRAIN DRYER Office Visit [facility] Multispecialty Care - [facility] 3 [facility], [address] [place] [phone] Julio Pulido MD 3 [place] [address] documented as of this encounter Goals Goal Patient Goal Type Associated Problems Recent Progress Patient-Stated? Author Health - patient able to perform ADLs independently General On track(2023 9:49 AM CDT) No Dianne Johnson, RN Note: 12/17/23: Patient stated she is independent with ASL's. documented as of this encounter Visit Diagnoses Diagnosis Respiratory illness- Primary documented in this encounter Additional Health Concerns Assessment Noted Time PHQ-9 Depression Total Score: 0 11/23/19 21 12:03 PM CDT documented as of this encounter Care Teams Real Estate Acquisition Analyst Relationship Specialty Start Date End Date Sanjeev Webster DO [address] [place] [address] PCP - General FAMILY PRACTICE 09/25/20 Dianne Johnson, RN [address] [place] [address] Liquor Stores And Agencies Supervisor (Ambulatory) REGISTERED NURSE 08/14/20 documented as of this encounter
--- OUTSIDE RECORDS SUMMARY | 2024-03-15 01:08 | XMS_ITS | Encounter Summary ---
Author Organization [facility] Address [facility]6 [facility] [place] [address] [place] [address] Care Team Providers Care Glue Size Machine Operator Name Role Phone Dianne Johnson RN Unavailable [phone] Sanjeev Webster DO Primary Care Provider + Reason for Visit * Reason Onset Date Comments Medication Request 04/12/2021 Encounter Details Date Type Department Care Team (Late st Contact Info) Description 04/12/2021 Telephone [facility] Family & Internal Medicine [address] [address] Sanjeev Webster DO [facility] [place] [address] Medication Request Social History Tobacco [...] COVID-19? No / Unsure 03/28/2021 10:03 AM COST SPECIALIST documented as of this encounter Progress Notes * Natalee Brown RN - 04/12/2021 2:16 PM CST ----- Message from Court Robles RN sent at 04/10/2021 12:47 PM COST SPECIALIST ----- Needs refill for hydrocodone-acetaminophen. She is completely out. SPECIALIST documented in this encounter Plan of Treatment Upcoming Encounters Date Type Department Care Team (Late st Contact Info) Description 04/14/2024 2:00 PM COST SPECIALIST Office Visit [facility] Multispecialty Care - [facility] 3 [facility], [address] [place] [phone] Julio Pulido MD 3 [place] [address] documented as of this encounter Goals Goal Patient Goal Type Associated Problems Recent Progress Patient-Stated? Author Health - patient able to perform ADLs independently General On track(2023 9:49 AM CDT) No Dianne Johnson RN Note: 12/17/23: Patient stated she is independent with ASL's. documented as of this encounter Visit Diagnoses Diagnosis Closed displaced fracture of base of fifth metacarpal bone of left hand with routine healing, subsequent encounter documented in this encounter Additional Health Concerns Assessment Noted Time PHQ-9 Depression Total Score: 0 11/23/19 21 12:03 PM CDT documented as of this encounter Care Teams Glue Size Machine Operator Relationship Specialty Start Date End Date Sanjeev Webster DO [address] [place] [address] PCP - General FAMILY PRACTICE 09/25/20 Dianne Johnson RN [address] [place] [address] Skidway Worker (Ambulatory) REGISTERED NURSE 08/14/20 documented as of this encounter
--- OUTSIDE RECORDS SUMMARY | 2024-03-15 01:08 | XMS_ITS | Encounter Summary ---
Author Organization [facility] Address [address] [place] [address]. [place] [address] [place] [address] Care Team Providers Care Foot Piece Assembler Name Role Phone Dianne Johnson RN Unavailable [phone] Sanjeev Webster DO Primary Care Provider + Reason for Visit * Reason Onset Date Comments TCM 03/26/2021 Santos 03/21- Encounter Details Date Type Department Care Team (Late st Contact Info) Description 03/26/2021 Patient Outreach [facility] Medical Group Family & Internal Medicine [address] [address] Dianne Johnson, RN [address] [place] [address] TCM (Santos 03/21-03/25) Social History Tobacco Use Types Packs/Day Years [...] COVID-19? No / Unsure 02/28/2021 1:16 PM DEMURRAGE MAN documented as of this encounter Progress Notes * Dianne Johnson RN - 03/26/2021 3:36 PM CST Images from the original note were not included. Follow up call to patient post hospitalization 03/26/21: Contacted Roberto at [facility] medical records to obtain records from hospitalization. Ion stated D/C summary and D/C medication list is not available at this time. 03/27/21: Contacted Fátima with [facility] medical records. Patient admitted to [facility] on 03/21/21 with discharge diagnosis pf dyspnea and anxiety. Discharge date: 03/25/21 Date of Contact: 03/27/21 Patient Status: (Including education, discharge instructions, s/sx to infection, and when to seek medical attn) Contacted patient and she is not at home right now. Reports having steel construction worker on Thursday and until 12:30 PM. She plans on getting a perm tomorrow afternoon. Appetite okay and last BM was this morning. Stated she took OTC stool softener but couldn't tell CC what she took since she is not at home. Stated Izzy ([id number]) takes care of her medications. Patient stated the Alprazolam is helping with her anxiety and dizziness. She denies medication causing drowsiness. Stated she wasonly prescribed 5 pills and needs to talk to PCP about getting more. Contacted Adrianne at 's office to get patient a TCM appointment scheduled. Appointment scheduled with Camelia CHOI tomorrow. Adrianne will contact patient with appointment details. Contacted Izzy and attempted to reconcile medications. Izzy currently has COVID and plans to ask her Step-daughter if she will fill patient's pill convention planner tonight. Asked Izzy if she will have Step-daughter write down what medications patient is taking and have her bring in an accurate list tomorrowfor PCP appointment. Izzy stated she will ask and make sure it's taken care of. See below for details: Lisinopril 2.5 mg daily listed on [facility] medication list to continue. In [facility] states patient takes Lisinopril 40 mg daily. Confirmed with Izzy patient is taking 40 mg daily. Izzy stated patient is on Warfarin 9 mg on Mondays and 6 mg the rest of the days. Stated Cardiologyis managing patient's INR's. Informed Izzy on [facility] medication list it states Warfarin 6 mg daily. Informed patient had PT/INR on 03/25/21 at [facility] and INR was 2.8. Izzy will contact Cardiology office today and find out how much Warfarin patient is supposed to be taking and when she needs a PT/INR done. Izzy is aware patient is to f/u with Dr. Christiane Carrera in [place] per patient's D/C packet from [facility]. Izzy will find out if patient is to f/u with or . She willcall or office with an update regarding appointment so patient can get an [facility] referral. Pertinent Labs: Pertinent Procedures/Imaging performed while inpatient: Discharge Disposition: Home Any follow up appointments needed to be scheduled: yes - in [address]Erica Carrera- Court Commissioner in [place] [phone]. Future Appointments Date Time Provider Department Center 03/28/2021 10:00 AM [facility] Referrals needed: yes - Patient will need a referral to see Cardiology. Izzy will call back with appointment details as she understands patient needs an [facility] referral. Any follow up labs/imagining needed: yes - PFT in 1 week and she needs a PT/INR done. Have lab/imaging orders been placed: Izzy will call Cardiology about when patient needs a PT/INR. Allergies: Allergies Allergen Reactions ??? Tape Contact Dermatitis ??? Bacitracin Other (see comment) ??? Benzalkonium Other (see comment) ??? Gramicidin Other (see comment) ??? Hydrocortisone Other (see comment) ??? Neomycin Other (see comment) ??? Polymyxin B Other (see comment) Medications: Outpatient medications have been reconciled with hospital discharge list. See below for changes. Current Outpatient Medications Medication Sig Note Dispense Refill ??? acetaminophen 325 MG tablet Take 650 mg by mouth daily as needed. ??? albuterol sulfate HFA 108 (90 Base) MCG/ACT inhaler Inhale 2 puffs into the lungs every 6 (six)hours as needed for Wheezing. 18 g 1 ??? ALPRAZolam 0.25 MG tablet Take 0.25 mg by mouth 2 (two) times daily as needed for Anxiety. ??? amiodarone 200 MG tablet Take 100 mg by mouth daily. ??? atorvastatin 10 MG tablet Take 1 tablet (10 mg total) by mouth daily. 90 tablet 1 ??? Cholecalciferol (VITAMIN D3) 25 MCG (1000 [...] times daily. 180 capsule 0 ??? HYDROcodone-acetaminophen 10-325 MG tablet Take 1 tablet by mouth every 6 (six) hours as neededfor Pain. Indications: Chronic Pain Please call office regarding refills at earliest convenience. 30 tablet 0 ??? LISINOPRIL 40 MG tablet Take 1 tablet by mouth once daily 90 tablet 1 ??? omeprazole 20 MG capsule Take 1 capsule (20 mg total) by mouth daily. 90 capsule 1 ??? venlafaxine XR 150 MG 24 hr capsule Take 1 capsule (150 mg total) by mouth daily. 90 capsule 1 ??? warfarin 6 MG tablet Take 1 tablet (6 mg total) by mouth daily. (Patient taking differently: 9 mg on Mondays and 6 mg the other days) 90 tablet 1 ??? azelastine (AZELASTINE) 0.1 % nasal spray 1 spray by Nasal route 2 (two) times daily. Use in each nostril as directed (Patient not taking: Reported on 03/27/2021) 30 mL 1 ??? Blood Glucose Monitoring Suppl (ONE TOUCH ULTRA 2) w/Device Kit Use daily as directed 1 kit 0 ??? cefdinir 300 MG Cap capsule Take 1 capsule (300 mg total) by mouth 2 (two) times daily. (Patient not taking: Reported on 03/27/2021) 03/27/2021: Per Izzy ([id number]-oe-yuq) 20 capsule 0 ??? CONTOUR NEXT TEST test strip USE 1 STRIP TO CHECK GLUCOSE THREE TIMES DAILY ??? Glucose Blood test strip 1 strip by Other route daily as needed. 100 strip 0 ??? Lancets Misc Test daily as directed 100 each 1 ??? lidocaine 5 % Apply pain patch to affected area. Change after 12 hours. (Patient not taking: Reported on 03/27/2021) 6 patch 0 ??? methylPREDNISolone, JENNIFER, 4 MG tablet 6 TABLETS ON DAY ONE, 5 TABLETS DAY TWO, 4 TABLETS DAY THREE, 3 TABLETS DAY FOUR, 2 TABLETS DAY FIVE, AND 1 TABLET DAY SIX (Patient not taking: Reported on 03/27/2021) 1 each 0 ??? oxymetazoline 0.05 % nasal spray Not to exceed 3 days. May use for 3 days then refrain for 3 days and repeat as needed. (Patient not taking: Reported on 03/27/2021) 20 mL 0 ??? warfarin 1 MG tablet Take 3 tablets (3 mg total) by mouth see administration instructions. [id number] tablet on , fridays and mondays 270 tablet 1 No current facility-administered medications for this visit. Discontinued Medications: No Does patient have difficulty affording medication: No Do any medications need refilled: Yes -Patient stated she needs a refill on Alprazolam. She will discuss at upcoming appointment since this is a new medication ordered by [facility]. Does patient have access to care and [...] closely and report the onset of changes. ??? Health - patient able to perform [...] dishes her back hurts. Reports Tylenol or [place] helps a little. Message sent to Bebe BHATTI) to find out the status on steel construction worker. 10/23/20: Independent with ADL's. 12/10/20: Patient having issues sweeping etc since right hand fx. Stated she will contact [employer] out if another steel construction worker will be helping her. Stated she prefers to wait until after she comes back from visiting her son in [place]. 12/27/20: Patient stated she is having issues getting a steel construction worker due to company being short staffed. Stated she plans on calling them back today to find out status. Stated her pastors daughter put in application to help her about 1 1/2 months ago but she hasn't received a call. Stated she will call them today. 01/11/21: compensator worker will start on Thursday and help [...] (take of pounds sensibly) on Thursday mornings. Plan of Care: Follow up with Camelia CHOI tomorrow. RRAGE MAN documented in this encounter Plan of Treatment Upcoming Encounters Date Type Department Care Team (Late st Contact Info) Description 04/14/2024 2:00 PM DEMURRAGE MAN Office Visit [facility] Medical Group Multispecialty Care - [facility] [address] [facility], [address] [place] [address] Julio Pulido MD [address] [place] [address] documented as of this encounter Goals Goal [...] documented as of this encounter Care Teams Foot Piece Assembler Relationship Specialty Start Date End Date Sanjeev Webster DO [address] [place] [address] PCP - General FAMILY PRACTICE 09/25/20 Dianne Johnson, RN [address] [place] [address] Proposal Writer (Ambulatory) REGISTERED NURSE 08/14/20 documented as of this encounter
--- OUTSIDE RECORDS SUMMARY | 2024-03-15 01:08 | XMS_ITS | Encounter Summary ---
Author Organization [facility] Address [address] [place] [address]. [place] [address] [place] [address] Care Team Providers Care Paddock Judge Name Role Phone Dianne Johnosn RN Unavailable [phone] Sanjeev Webster DO Primary Care Provider + Encounter Details Date Type Department Care Team (Latest Contact Info) Description 02/28/2021 Travel Social History Tobacco Use Types Packs/Day [...] COVID-19? No / Unsure 02/28/2021 1:16 PM NON ACOUSTIC OPERATOR documented as of this encounter Plan of Treatment Upcoming Encounters Date Type Department Care Team (Late st Contact Info) Description 04/14/2024 2:00 PM NON ACOUSTIC OPERATOR Office Visit [facility] Medical Group Multispecialty Care - [address], [address] [place] [address] Julio Pulido MD 3 [place] [address] documented as of this encounter Goals Goal [...] documented as of this encounter Care Teams Paddock Judge Relationship Specialty Start Date End Date Sanjeev Webster DO [address] [place] [address] PCP - General FAMILY PRACTICE 09/25/20 Dianne Johnson, RN [address] [place] [address] Superintendent Gas Distribution (Ambulatory) REGISTERED NURSE 08/14/20 documented as of this encounter
--- OUTSIDE RECORDS SUMMARY | 2024-03-15 01:08 | XMS_ITS | Encounter Summary ---
Author Organization [facility] Address [address] [place] [address]. [place] [address] [place] [address] Care Team Providers Care Set Up Mechanic Crown Assembly Machine Name Role Phone Dianne Johnson RN Unavailable [phone] Sanjeev Webster DO Primary Care Provider + [...] COVID-19? No / Unsure 03/28/2021 10:03 AM STATION MASTER documented as of this encounter Plan of Treatment Upcoming Encounters Date Type Department Care Team (Late st Contact Info) Description 04/14/2024 2:00 PM STATION MASTER Office Visit [facility] Medical Group Multispecialty Care - [address], [address] [place] [address] Julio Pulido MD 3 [place] [address] documented as of this encounter Goals Goal [...] documented as of this encounter Care Teams Set Up Mechanic Crown Assembly Machine Relationship Specialty Start Date End Date Sanjeev Webster DO [address] [place] [address] PCP - General FAMILY PRACTICE 09/25/20 Dianne Johnson, RN [address] [place] [address] Cuff Setter Lockstitch (Ambulatory) REGISTERED NURSE 08/14/20 documented as of this encounter
--- OUTSIDE RECORDS SUMMARY | 2024-03-15 01:08 | XMS_ITS | Encounter Summary ---
Author Organization [facility] Address [facility] [facility] [place] [address] [place] [address] Care Team Providers Care Seed Corn Manager Production Name Role Phone Casey Johnson RN Unavailable [phone] Sanjeev Webster DO Primary Care Provider + Reason for Referral * Consultation (Routine) - Closed Specialty Diagnoses / Procedures Referred By Contivett t Referred To Contact ENDOCRINOLOGY Diagnoses Type 2 diabetes mellitus with diabetic peripheral angiopathy without gangrene, without long-term current use of insulin ([facility]) Sanjeev Webster DO [address] [place] [address] Phone: tel: fax: Panda Moreno MD Referral ID Status Reason Start Date Expiration Date Visits Re quested Visits Authorized [id number] Closed 06/17/2021 12/20/2021 6 6 ERY STACKER Reason for Visit * Reason Onset Date Comments Care Management 04/29/2021 Encounter Details Date Type Department Care Team (Late st Contact Info) Description 04/29/2021 Patient Outreach [facility] Medical Group Family & Internal Medicine [facility] [address] [place] [address] Casey Johnson RN [address] [place] [address] Care Management Social History Tobacco [...] Progress Notes * Casey Johnson RN - 04/29/2021 8:43 AM CST Chronic Care Management: Patient concerns or urgent matters that need addressed: Non identified during this call. Patient Status: Reviewed care gaps with patient today. Stated she plans on setting up a DM eye examination. Stated she will call today. Stated she thinks a Bone density test was done at [facility]. CC will reach out to [facility] medical records department to find out. 04/29: Contacted [facility] medical records and spoke to Baljeet. Stated the last Dexa scan was done on 09/26/2011. She will fax a copy to CC. Received copy of Dexa report. Faxed a copy to 's office. 04/29: Contacted Trinidad with the referral department. Stated patient needs to schedule an appointment with Endo in [place] as they attempted to reach out to her 3 times. Once the appointment is madeEndo with drop appointment to referral department workque for them to obtain an [facility] referral. Spoke to Humear in Endo department. She stated since patient was dismissed she can not schedule heranother appointment. 04/29: Contacted the referral department and spoke to Isabel about the above. Isabel was very niceand stated 's office does not need to enter another referral and she will be happy to work on this referral. 04/29: Notified patient of the above. She received a call from the referral department when she was talking to CC on the phone to contact Endocrinology in [place] at [phone] to schedule an appointment. 04/29: Contacted patient back to find out if she scheduled an appointment with Dennis. Stated she is awaiting a return phone call. Stated she will call ELADIO tomorrow about general farmworker. Plan of Care: Follow up with on 05/24/21 or call before that time if needed. Patient awaiting call from Endocrinology in [place] to call her back with an appointment. Patient Goals: Goals Addressed This Visit's Progress ??? COMPLETED: Establish Plan for Symptom Monitoring 09/25: Patient [...] Next INR due tomorrow, weather permitting. ??? Establish Plan for Symptom Monitoring-CHF Not [...] Stated she is taking meds as prescribed. ??? Establish Plan for Symptom Monitoring-COPD On [...] any changes. Denies any issues at present. ??? Establish Plan for Symptom Monitoring-DM Not [...] issues with hypoglycemia s/s at this time. ??? Establish Plan for Symptom Monitoring-HTN Patient will recognize symptoms of hypertension and [...] see if she has a B/P monitor. ??? Health - patient able to perform [...] dishes her back hurts. Reports Tylenol or [place] helps a little. Message sent to Bebe BHATTI) to find out the status on general farmworker. 10/23/20: Independent with ADL's. 12/10/20: Patient having issues sweeping etc since right hand fx. Stated she will contact [employer] out if another general farmworker will be helping her. Stated she prefers to wait until after she comes back from visiting her son in [place]. 12/27/20: Patient stated she is having issues getting a general farmworker due to [employer] being short staffed. Stated she plans on calling them back today to find out status. Stated her pastors daughter put in application to help her about 1 1/2 months ago but she hasn't received a call. Stated she will call them today. 01/11/21: jet worker will start on Thursday and help [...] Patient stated she is getting a new general farmworker next week to help clean her home. Denies any recent falls. 04/10/21: Patient's [id number] is filling mediplanner for the patient. 04/29/21: Patient stated the general farmworker did not show up again. Gave patient number to ELADIO. She wrote it down and will call for assistance. Upcoming Visit Appointments: Future Appointments Date Time Provider Department Center 05/24/2021 9:20 AM Sanjeev Webster, DO [facility] Quality care gaps: Health Maintenance Topic [...] Chronic anticoagulation ??? Coronary artery disease involving [place] coronary artery of [place] heart without angina pectoris ??? Diabetes mellitus [...] mL 1 ??? Blood Glucose Monitoring Suppl ([employer] ULTRA 2) w/Device Kit Use daily as [...] mg total) by mouth see administration instructions. [id number] tablet on , fridays and mondays 270 tablet 1 ??? warfarin 6 MG tablet Take 1 tablet (6 mg total) by mouth daily. (Patient taking differently: 9 mg on Mondays and 6 mg the other days) 90 tablet 1 No current facility-administered medications for this visit. CASEY JOHNSON RN ERY STACKER * Trixie Castillo MA - 04/29/2021 8:43 AM CST Patient contacted and states that [facility] called her today and set up an appointment. Her appointment is in June. ERY STACKER * Trixie Castillo MA - 04/29/2021 8:43 AM CSTAddended by: TRIXIE CASTILLO on: 04/30/2021 03:08 PM Modules accepted: Orders ERY STACKER * LUCI Rueda - 04/29/2021 8:43 AM CST Okay for referral if needed ERY STACKER documented in this encounter Plan of Treatment Upcoming Encounters Date Type Department Care Team (Late st Contact Info) Description 04/14/2024 2:00 PM BATTERY STACKER Office Visit [facility] Medical Group Multispecialty Care - [address], [address] [place] [address] Julio Pulido MD 3 [place] [address] Scheduled Referrals Name Type Priority Associated Diagnoses Orde r Schedule Ambulatory referral to Endocrinology ( [place]) Referral Routine Type 2 diabetes mellitus with diabetic peripheral angiopathy without gangrene, without long-term current use of insulin ([facility]) Ordered: 04/30/2021 documented as of this encounter Goals Goal Patient Goal Type Associated Problems Recent Progress Patient-Stated? Author Health - patient able to perform ADLs independently General On track(2023 9:49 AM CDT) Casey Corona, RN Note: 12/17/23: Patient stated she is independent with ASL's. Establish Plan for Symptom Monitoring-CHF General On track(2023 11:36 AM BATTERY STACKER) Casey Corona, RN Note: Patient will recognize [...] Symptom Monitoring-COPD General On track(2023 11:36 AM BATTERY STACKER) Casey Corona, RN Note: Patient will recognize [...] Symptom Monitoring-DM General On track(2023 4:33 PM BATTERY STACKER) Casey Corona RN Note: Patient will manage [...] Symptom Monitoring-HTN General On track(2023 4:33 PM BATTERY STACKER) Casey Corona RN Note: Patient will monitor [...] gangrene, without long-term current use of insulin ([facility])- Primary documented in this encounter Additional Health Concerns Assessment Noted Time PHQ-9 Depression Total Score: 0 11/23/19 21 12:03 PM CDT documented as of this encounter Care Teams Seed Corn Manager Production Relationship Specialty Start Date End Date Sanjeev Webster DO [address] [place] [address] PCP - General FAMILY PRACTICE 09/25/20 Casey Johnson RN [address] [place] [address] Sewer Pipe Sorter (Ambulatory) REGISTERED NURSE 08/14/20 documented as of this encounter
--- OUTSIDE RECORDS SUMMARY | 2024-03-15 01:08 | XMS_ITS | Encounter Summary ---
Author Organization [facility] Address [address] [place] [address]. [place], [place] [address] [place] [address] Care Team Providers Care Barrel Lapper Name Role Phone Dianne Johnson RN Unavailable [phone] Sanjeev Webster DO Primary Care Provider + Reason for Visit * Reason Onset Date Comments Pre-visit Gap Closure 05/20/2021 Encounter Details Date Type Department Care Team (Late st Contact Info) Description 05/20/2021 Telephone [facility] Medical Group Family & Internal Medicine [facility] [address] [place] [address] Sanjeev Webster DO [address] [place] [address] Pre-visit Gap Closure Social History [...] as of this encounter Progress Notes * Tricia Gonzales CMA - 05/20/2021 12:18 PM CDT Contacted patient for pre-visit gap closure. I am calling this patient as a patient advocate for the [employer]. My direct extension is [phone]. You can also reach me at: [phone] (MICHELLE) OR [phone] (NICOLE)' documented in this encounter Plan of Treatment Upcoming Encounters Date Type Department Care Team (Late st Contact Info) Description 04/14/2024 2:00 PM HAND ORNAMENT MAKER Office Visit [facility] Medical Group Multispecialty Care - [facility] [address] [facility], [address] [place] [address] Julio Pulido MD [address] [place] [address] documented as of this encounter Goals Goal Patient Goal Type Associated Problems Recent Progress Patient-Stated? Author Health - patient able to perform ADLs independently General On track(2023 9:49 AM CDT) Dianne Corona, DALE Note: 12/17/23: Patient stated she is independent with ASL's. Establish Plan for Symptom Monitoring-CHF General On track(2023 11:36 AM HAND ORNAMENT MAKER) Dianne Corona, RN Note: Patient will [...] Monitoring-COPD General On track(2023 11:36 AM HAND ORNAMENT MAKER) Dianne Corona, RN Note: Patient will [...] Monitoring-DM General On track(2023 4:33 PM HAND ORNAMENT MAKER) Dianne Corona RN Note: Patient will [...] Monitoring-HTN General On track(2023 4:33 PM HAND ORNAMENT MAKER) Dianne Corona RN Note: Patient will [...] documented as of this encounter Care Teams Barrel Lapper Relationship Specialty Start Date End Date Sanjeev Webster DO [address] [place] [address] PCP - General FAMILY PRACTICE 09/25/20 Dianne Johnson, RN [address] [place] [address] Foil Cutter (Ambulatory) REGISTERED NURSE 08/14/20 documented as of this encounter
--- OUTSIDE RECORDS SUMMARY | 2024-03-15 01:08 | XMS_ITS | Encounter Summary ---
Author Organization [facility] Address [facility] [place] [address] [place] [address] Care Team Providers Care Conservator Artifacts Name Role Phone Dianne Johnson RN Unavailable [phone] Sanjeev Webster DO Primary Care Provider + Encounter Details Date Type Department Care Team (Latest Contact Info) Description 03/18/2021 Scan HEALTH INFO SRVCS Scanned, Documents Social [...] COVID-19? No / Unsure 03/28/2021 10:03 AM HVAC TECHNICIAN documented as of this encounter Plan of Treatment Upcoming Encounters Date Type Department Care Team (Late st Contact Info) Description 04/14/2024 2:00 PM HVAC TECHNICIAN Office Visit [facility] Multispecialty Care - [address], [address] [place] [address] Julio Pulido MD [address] [place] [address] documented as of this encounter Goals Goal [...] documented as of this encounter Care Teams Conservator Artifacts Relationship Specialty Start Date End Date Sanjeev Webster DO [address] [place] [address] PCP - General FAMILY PRACTICE 09/25/20 Dianne Johnson, RN [facility] [place] [address] Engineering Technical Writer (Ambulatory) REGISTERED NURSE 08/14/20 documented as of this encounter
--- OUTSIDE RECORDS SUMMARY | 2024-03-15 01:08 | XMS_ITS | Encounter Summary ---
Author Organization [facility] Address [facility] [facility] [place] [address] [place] [address] Care Team Providers Care Cushion Assembler Name Role Phone Dianne Johnson RN Unavailable [phone] Sanjeev Webster DO Primary Care Provider + Reason for Visit * Reason Comments Hypertension follow up Medication follow up for pain m edication Encounter Details Date Type Department Care Team (Late st Contact Info) Description 02/28/2021 1:20 PM LINUX NETWORK ENGINEER Office Visit [facility] Medical [facility] Family & Internal Medicine [address] [address] Sanjeev Webster DO [facility] [place] [address] Hypertension (follow up ); Medication (follow up for pain medication) Social History Tobacco Use Types Packs/Day Years [...] COVID-19? No / Unsure 02/28/2021 1:16 PM LINUX NETWORK ENGINEER documented as of this encounter Last Filed Vital Signs Vital Sign Reading Time Taken Comments Blood Pressure 132/52 02/28/2021 1:25 PM LINUX NETWORK ENGINEER Pulse 71 02/28/2021 1:25 PM LINUX NETWORK ENGINEER Temperature 36.2 ??C (97.2 ??F) 02/28/2021 1:25 PM CS T Respiratory Rate 16 02/28/2021 1:25 PM LINUX NETWORK ENGINEER Oxygen Saturation 97% 02/28/2021 1:25 PM LINUX NETWORK ENGINEER Inhaled Oxygen Concentration - - Weight 88.5 kg (195 lb) 02/28/2021 1:25 PM LINUX NETWORK ENGINEER Height 162.6 cm (5' 4 ) 02/28/2021 1:25 PM LINUX NETWORK ENGINEER Body Mass Index 33.47 02/28/2021 1:25 PM LINUX NETWORK ENGINEER documented in this encounter Progress Notes * Sanjeev Webster, DO - 02/28/2021 1:20 PM CST Images from the original note were not included. GENERAL OFFICE VISIT Encounter Date: 02/28/2021 Chief Complaint: 75-year-old female presents for Hypertension (follow up ) and Medication (follow up for pain medication) HPI: Pt presents for follow-up today.? Pt has seen Dr. Fang who monitored pt's fractures and were noted to be stable. She notes it still causes pain occasionally but is improved. Her hematoma has resolved at this point after wound careevaluation and treatment. ? Pt is scheduled with endocrine for 03/05/21 for follow-up on her parathyroid, calcium, and elevatedpotassium (although this has improved on most recent check). We instructed pt to take furosemide every other day due to decreased creatinine. Pt is not sure if she has been doing this or not. No notable swelling at this time. Pt is needing a UDS today as she has continued to need hydrocodone for multiple issues. Pt has multiple cardiac issues for which she follows with Dr. Ordoñez and Ana Maria Hess.?These include mechanical aortic valve replacement, chronic anticoagulation, paroxysmal atrial flutter, amiodarone therapy, CAD without angina, and hypertensive heart disease with unspecified heart failure.?Pt has a mechanical [employer] [facility] aortic valve. ??She is on warfarin; she follows with cardiology for PT/INR management. ??She has had issues with bradycardia, so she is not on BB. ??She is not on aspirin due to warfarin therapy. ??She is on atorvastatin.?? Her PT/INR was noted to be elevated on 02/19/21. She states it was changed by their office; she is unsure what the dose was changed to. Pt may have this rechecked on 03/11/21; she is unsure. ?? Pt has hx of VAZQUEZ; she is not currently using CPAP due to issues with the mask. She isn't sure she wants to do anything about this; she states she is not sure she will use the CPAP even if the issues are fixed. She is still having some sinus issues. We sent out a Z-pack for her. She is asking if we can send her something else out. ?? Patient presents for follow-up on essential hypertension. ??Patient has had hypertension for multiple??years. Her levels are controlled today. ??Current medications include??amiodarone, furosemide, and lisinopril. ??Patient's blood pressure is relatively well controlled.?No side effects noted from medications. ??No chest pain, SOB. Pt does have some occasional dizziness if she moves too quickly, but this is stable at this time. 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 ? Pt continues to present by herself despite my recommendations. Review of Systems Constitutional: Negative for fever. HENT: See HPI Respiratory: See HPI Cardiovascular: See HPI Endocrine: See HPI Musculoskeletal: See HPI Patient Active Problem List Diagnosis ??? Abnormal stress test ??? Bradycardia ??? Chronic anticoagulation ??? Coronary artery disease involving [place] coronary artery of [place] heart without angina pectoris ??? Diabetes [...] PVD (peripheral vascular disease) (CMS/HCC) ??? Hematoma Past Medical History: Diagnosis Date ??? Aneurysm [...] Influenza Adult (Generic) 02/26/2012, 11/30/2013, 12/07/2014, 12/25/2016, 12/03/2017 ??? PFIZER COVID-19, MRNA, LNP-S, PF, 30 MCG/0.3 ML DOSE 05/10/2020, 06/01/2020 ??? Pneumococcal (Pneumovax 23) 03/30/2017 ??? Pneumococcal (Prevnar 13) 06/15/2015 ??? Td 07/22/2014 ??? Tdap (Boostrix) 09/05/2020 ??? Tdap (Generic) 06/05/2016, 09/05/2020 ??? Tetanus/Diptheria 07/22/2014 ??? Zoster (Zostavax) [address] Unt/0.65Ml 12/25/2015 Current Outpatient Medications Medication Sig Dispense Refill ??? azelastine (AZELASTINE) 0.1 % nasal spray [...] (two) times daily. 20 capsule 0 ??? CONTOUR NEXT TEST test strip USE 1 STRIP TO CHECK GLUCOSE THREE TIMES DAILY ??? furosemide 20 MG tablet Take 1 tab every other day. 90 tablet 1 ??? HYDROcodone-acetaminophen 10-325 MG tablet Take 1 tablet by mouth every 6 (six) hours as neededfor Pain. Indications: Chronic Pain Please call office regarding refills at earliest convenience. 30 tablet 0 ??? Lancets Misc Test daily as directed 100 each 1 ??? oxymetazoline 0.05 % nasal spray Not to exceed 3 days. May use for 3 days then refrain for 3 days and repeat as needed. 20 mL 0 ??? acetaminophen 325 MG tablet Take 650 mg by mouth. ??? albuterol sulfate HFA 108 (90 Base) MCG/ACT inhaler INHALE 2 PUFFS BY MOUTH EVERY 4 TO 6 HOURS NEEDED 18 g 1 ??? amiodarone 200 MG tablet Take 100 mg by mouth daily. ??? atorvastatin 10 MG tablet Take 10 mg by mouth daily. ??? Cholecalciferol (VITAMIN [...] daily as needed. 100 strip 0 ??? lidocaine 5 % Apply pain [...] mg total) by mouth see administration instructions. [id number] tablet on , fridays and mondays 270 tablet 1 ??? warfarin 6 MG tablet Take 1 tablet (6 mg total) by mouth daily. 90 tablet 1 No current facility-administered medications for this visit. Current Outpatient Medications on File Prior to Visit Medication Sig ??? azelastine (AZELASTINE) 0.1 % nasal spray 1 spray by Nasal route 2 (two) times daily. Use in each nostril as directed ??? Blood Glucose Monitoring Suppl (ONE TOUCH ULTRA 2) w/Device Kit Use daily as directed ??? CONTOUR NEXT TEST test strip USE 1 STRIP TO CHECK GLUCOSE THREE TIMES DAILY ??? furosemide 20 MG tablet Take 1 tab every other day. ??? HYDROcodone-acetaminophen 10-325 MG tablet Take 1 tablet by mouth every 6 (six) hours as neededfor Pain. Indications: Chronic Pain Please call office regarding refills at earliest convenience. ??? Lancets Misc Test daily as directed ??? oxymetazoline 0.05 % nasal spray Not to exceed 3 days. May use for 3 days then refrain for 3 days and repeat as needed. ??? acetaminophen 325 MG tablet Take 650 mg by mouth. ??? albuterol sulfate HFA 108 (90 Base) MCG/ACT inhaler INHALE 2 PUFFS BY MOUTH EVERY 4 TO 6 HOURS NEEDED ??? amiodarone 200 MG tablet Take 100 mg by mouth daily. ??? atorvastatin 10 MG tablet Take 10 mg by mouth daily. ??? Cholecalciferol (VITAMIN D3) 25 MCG (1000 UT) Cap Take 1,000 Units by mouth daily. ??? FEROSUL 325 (65 Fe) MG tablet Take 1 tablet (325 mg total) by mouth daily. ??? gabapentin 300 MG capsule Take 1 capsule (300 mg total) by mouth 2 (two) times daily. ??? Glucose Blood test strip 1 strip by Other route daily as needed. ??? lidocaine 5 % Apply pain patch to affected area. Change after 12 hours. ??? omeprazole 20 MG capsule Take 1 capsule (20 mg total) by mouth daily. ??? venlafaxine XR 150 MG 24 hr capsule Take 1 capsule (150 mg total) by mouth daily. ??? warfarin 1 MG tablet Take 3 tablets (3 mg total) by mouth see administration instructions. [id number] tablet on , fridays and mondays ??? [...] B Other (see comment) Objective: Filed Vitals: 02/28/21 1325 BP: 132/52 Pulse: 71 Resp: 16 Temp: 97.2 ??F (36.2 ??C) TempSrc: Skin SpO2: 97% Weight: 88.5 kg (195 lb) Height: 5' 4 (1.626 m) Physical [...] Normal breath sounds. No wheezing or rales. Musculoskeletal: Comments: Both wrists stable Skin: Comments: Left arm skin healing well Assessment & Plan: Radha was seen today for hypertension and medication. Diagnoses and all orders for this visit: Closed displaced fracture of base of fifth metacarpal bone of left hand with routine healing, subsequent encounter Secondary hyperparathyroidism (CMS/HCC) Hypertensive heart disease with congestive heart failure, unspecified heart failure type (CMS/HCC) Respiratory illness - cefdinir 300 MG Cap capsule; Take 1 capsule (300 mg total) by mouth 2 (two) times daily. Drug therapy - DRUG MONITORING, PANEL 7, WITH CONFIRMATION, (U) H/O mechanical aortic valve replacement Requires lifelong warfarin therapy VAZQUEZ (obstructive sleep apnea) Discussion/Summary: Continue follow-up with orthopedics and wound care as needed. Suspect pt will obtain metabolic panel with endocrine next week, so will order this for when these are obtained. Will send out cefdinir. Strongly encourage pt to use CPAP as directed; will begin process of ordering these supplies. Continue f/u with cardiology; will reach out to cardiology office to ensure pt has scheduled PT/INR given recent elevated results. Continue f/u with endocrine as scheduled. Will obtain UDS/CSA. Will have ptf/u in 1 month or sooner if needed. Pt v/u. I spent 50 minutes today reviewing the patient's medical record, obtaining history, performing an exam, ordering medications, tests, and/or procedures, documenting in the medical record, counseling and educating the patient/family/caregiver, reviewing and communicating test results and coordinationof care. Sanjeev Webster DO X NETWORK ENGINEER documented in this encounter Plan of Treatment Upcoming Encounters Date Type Department Care Team (Late st Contact Info) Description 04/14/2024 2:00 PM LINUX NETWORK ENGINEER Office Visit [facility] Medical Group Multispecialty Care - [address], [address] [place] [phone] Julio Pulido MD [address] [place] [address] documented as of this encounter Goals Goal Patient Goal Type Associated Problems Recent Progress Patient-Stated? Author Health - patient able to perform ADLs independently General On track(2023 9:49 AM CDT) Dianne Corona, RN Note: 12/17/23: Patient stated she is independent with ASL's. documented as of this encounter Procedures Procedure Name Priority Date/Time Associated Diagnosis Comments DRUG MONITORING, PANEL 7, WITH CONFIRMATION, (U) Routine 02/28/2021 1:53 PM LINUX NETWORK ENGINEER Drug therapy documented in this encounter Results * (ABNORMAL) DRUG MONITORING, PANEL 7, WITH CONFIRMATION, (U) (02/28/2021 1:53 PM LINUX NETWORK ENGINEER) ALCOHOL METABOLITES (U) NEGATIVE <500 ng/mL [facility] AMPHETAMINES PM NEGATIVE <500 ng/mL [facility] BARBITURATES PM (U) NEGATIVE <300 ng/mL [facility] BENZODIAZEPINES PM (U) NEGATIVE <100 ng/mL [facility] COCAINE METABOLITE PM (U) NEGATIVE <150 ng/mL [facility] MORPHINE (U) NEGATIVE <10 ng/mL [facility] MARIJUANA METABOLITE PM (U) NEGATIVE <20 ng/mL [facility] METHADONE PM (U) NEGATIVE <100 ng/mL [facility] OPIATES PM (U) POSITIVE(A) <100 ng/mL [facility] CODEINE PM (U) NEGATIVE <50 ng/mL [facility] HYDROCODONE PM (U) 8,478(H) <50 ng/mL [facility] HYDROMORPHONE PM (U) 369(H) <50 ng/mL [facility] MORPHINE PM (U) NEGATIVE <50 ng/mL [facility] NORHYDROCODONE PM (U) 8,266(H) <50 ng/mL [facility] OPIATES COMMENTS [facility] Comment:See Opiates Notes, L DT Notes OXYCODONE PM (U) NEGATIVE <100 ng/mL [facility] CREATININE RANDOM URINE 202.3 > or = 20.0 mg/dL [facility] pH PM (U) 5.8 4.5 - 9.0 [facility] OXIDANT NEGATIVE <200 mcg/mL [facility] NOTE [facility] Comment: This drug testing is for medical treatment only. Analysis was performed as non-forensic testing and these results should be used only by healthcare providers to render diagnosis or treatment, or to monitor progress of medical conditions. Opiates Notes: Hydrocodone, Norhydrocodone, Hydromorphone detected is consistent with the use of the drug Hydrocodone. Hydromorphone detected is consistent with the use of the drug Hydromorphone. Hydromorphone can be a prescribed drug and is also a metabolite of Hydrocodone. LDT Notes: Confirmation tests were developed and their analytical performance characteristics have been determined by [facility]. It has not been cleared or approved by the FDA. This assay has been validated pursuant to the CLIA regulations and is used for clinical purposes. Healthcare Providers needing Interpretation assistance, please contact us at [phone] ( ) M-F, 8am to 10pm EST 02/28/2021 1:53 PM LINUX NETWORK ENGINEER 03/01/2021 3:38 AM LINUX NETWORK ENGINEER Sanjeev Webster DO LABORATORY Final Re sult [facility] [address] [place] [address] [facility] [address] [place] [address] documented in this encounter Visit Diagnoses Diagnosis Closed displaced fracture of base of fifth metacarpal bone of left hand with routine healing, subsequent encounter- Primary Secondary hyperparathyroidism ([facility]HCC) Secondary hyperparathyroidism (of renal origin) Hypertensive heart disease with congestive heart failure, unspecified heart failure type ([facility]/HCC) Respiratory illness Drug therapy Encounter for long-term (current) use of other medications H/O mechanical aortic valve replacement Heart valve replaced by other means Requires lifelong warfarin therapy VAZQUEZ (obstructive sleep apnea) Obstructive sleep apnea (adult) (pediatric) documented in this encounter Additional Health Concerns Assessment Noted Time PHQ-9 Depression Total Score: 0 11/23/19 21 12:03 PM CDT documented as of this encounter Care Teams Cushion Assembler Relationship Specialty Start Date End Date Sanjeev Webster DO [address] [place] [address] PCP - General FAMILY PRACTICE 09/25/20 Dianne Johnson RN [address] [place] [address] Brand Coordinator (Ambulatory) REGISTERED NURSE 08/14/20 documented as of this encounter
--- OUTSIDE RECORDS SUMMARY | 2024-03-15 01:08 | XMS_ITS | Encounter Summary ---
Author Organization [facility] Address [address] [place] [address]. [place] [address] [place] [address] Care Team Providers Care Roll Grinder Name Role Phone Dianne Johnson RN Unavailable [phone] Sanjeev Webster DO Primary Care Provider + Reason for Visit * Reason Comments Lab (SCAN) Encounter Details Date Type Department Care Team (Latest Contact Info) Description 03/23/2021 Scan HEALTH INFO SRVCS Scanned, Documents Lab [...] COVID-19? No / Unsure 03/28/2021 10:03 AM INDUSTRIAL ECOLOGIST documented as of this encounter Plan of Treatment Upcoming Encounters Date Type Department Care Team (Late st Contact Info) Description 04/14/2024 2:00 PM INDUSTRIAL ECOLOGIST Office Visit [facility] Medical Group Multispecialty Care - [address], [address] [place] [address] Julio Pulido MD [address] [place] [address] documented as of this encounter Goals Goal Patient Goal Type Associated Problems Recent Progress Patient-Stated? Author Health - patient able to perform ADLs independently General On track(2023 9:49 AM CDT) No Dianne Johnson, RN Note: 12/17/23: Patient stated she is independent with ASL's. documented as of this encounter Procedures Procedure Name Priority Date/Time Associated Diagnosis Comments OUTSIDE LAB (SCAN ORDER) 03/23/2021 documented in this encounter Results * OUTSIDE LAB (SCAN) (03/23/2021) 03/23/2021 Narrative 03/23/2021 Ordered by an unspecified provider. us Documents Scanned SCANNING Final Result documented in this encounter Visit Diagnoses Not on filedocumented in this encounter Additional Health Concerns Assessment Noted Time PHQ-9 Depression Total Score: 0 11/23/19 21 12:03 PM CDT documented as of this encounter Care Teams Roll Grinder Relationship Specialty Start Date End Date Sanjeev Webster DO [address] [place] [address] PCP - General FAMILY PRACTICE 09/25/20 Dianne Johnson, RN [address] [place] [address] Appraiser (Ambulatory) REGISTERED NURSE 08/14/20 documented as of this encounter
--- OUTSIDE RECORDS SUMMARY | 2024-03-15 01:08 | XMS_ITS | Encounter Summary ---
Author Organization [facility] Address [address] [place] [address]. [place] [address] [place] [address] Care Team Providers Care Nuclear Supervising Operator Name Role Phone Dianne Johnson RN Unavailable [phone] Sanjeev Webster DO Primary Care Provider + Reason for Visit * Reason Comments Lab (SCAN) Echo (SCAN) CT (SCAN) ECG (SCAN) Image (SCAN) Encounter Details Date Type Department Care Team (Late Contact Info) Description 03/21/2021 Scan HEALTH INFO SRVCS Scanned, Documents Lab (SCAN); Echo (SCAN); CT (SCAN); ECG (SCAN); Image (SCAN) Social History Tobacco Use [...] COVID-19? No / Unsure 03/28/2021 10:03 AM INSPECTOR WATCH PARTS documented as of this encounter Plan of Treatment Upcoming Encounters Date Type Department Care Team (Late Contact Info) Description 04/14/2024 2:00 PM INSPECTOR WATCH PARTS Office Visit [facility] Medical Group Multispecialty Care - [facility] [address], [address] [place] [phone] Julio Pulido MD [address] [place] [address] documented as of this encounter Goals Goal Patient Goal Type Associated Problems Recent Progress Patient-Stated? Author Health - patient able to perform ADLs independently General On track(2023 9:49 AM CDT) Dianne Corona, RN Note: 12/17/23: Patient stated she is independent with ASL's. documented as of this encounter Procedures Procedure Name Priority Date/Time Associated Diagnosis Comments CT GENERIC 03/21/2021 CT GENERIC 03/21/2021 CT GENERIC 03/21/2021 ECG GENERIC (SCAN ORDER) 03/21/2021 ECG GENERIC (SCAN ORDER) 03/21/2021 ECG GENERIC (SCAN ORDER) 03/21/2021 ECG GENERIC (SCAN ORDER) 03/21/2021 ECG GENERIC (SCAN ORDER) 03/21/2021 OUTSIDE PT/INR (SCAN ORDER) 03/21/2021 OUTSIDE LAB (SCAN ORDER) 03/21/2021 OUTSIDE LAB (SCAN ORDER) 03/21/2021 ECHO GENERIC (SCAN ORDER) 03/21/2021 IMAGE GENERIC 03/21/2021 IMAGE GENERIC 03/21/2021 IMAGE GENERIC 03/21/2021 documented in this encounter Results * OUTSIDE LAB (SCAN) (03/21/2021) 03/21/2021 Narrative 03/21/2021 Ordered by an unspecified provider. us Documents Scanned SCANNING Final Result * OUTSIDE PT/INR (SCAN) (03/21/2021) 03/21/2021 Narrative 03/21/2021 Ordered by an unspecified provider. us Documents Scanned SCANNING Final Result * OUTSIDE LAB (SCAN) (03/21/2021) 03/21/2021 Narrative 03/21/2021 Ordered by an unspecified provider. us Documents Scanned SCANNING Final Result * CT GENERIC (03/21/2021) Anatomical Region Laterality Modality Other 03/21/2021 Narrative 03/21/2021 Ordered by an unspecified provider. us Documents Scanned SCANNING Final Result * IMAGE GENERIC (03/21/2021) Anatomical Region Laterality Modality Other 03/21/2021 Narrative 03/21/2021 Ordered by an unspecified provider. us Documents Scanned SCANNING Final Result * IMAGE GENERIC (03/21/2021) Anatomical Region Laterality Modality Other 03/21/2021 Narrative 03/21/2021 Ordered by an unspecified provider. us Documents Scanned SCANNING Final Result * CT GENERIC (03/21/2021) Anatomical Region Laterality Modality Other 03/21/2021 Narrative 03/21/2021 Ordered by an unspecified provider. us Documents Scanned SCANNING Final Result * IMAGE GENERIC (03/21/2021) Anatomical Region Laterality Modality Other 03/21/2021 Narrative 03/21/2021 Ordered by an unspecified provider. us Documents Scanned SCANNING Final Result * CT GENERIC (03/21/2021) Anatomical Region Laterality Modality Other 03/21/2021 Narrative 03/21/2021 Ordered by an unspecified provider. us Documents Scanned SCANNING Final Result * ECHO GENERIC (03/21/2021) Anatomical Region Laterality Modality Other 03/21/2021 Narrative 03/21/2021 Ordered by an unspecified provider. us Documents Scanned SCANNING Final Result * ECG GENERIC (03/21/2021) 03/21/2021 Narrative 03/21/2021 Ordered by an unspecified provider. us Documents Scanned SCANNING Final Result * ECG GENERIC (03/21/2021) 03/21/2021 Narrative 03/21/2021 Ordered by an unspecified provider. us Documents Scanned SCANNING Final Result * ECG GENERIC (03/21/2021) 03/21/2021 Narrative 03/21/2021 Ordered by an unspecified provider. us Documents Scanned SCANNING Final Result * ECG GENERIC (03/21/2021) 03/21/2021 Narrative 03/21/2021 Ordered by an unspecified provider. us Documents Scanned SCANNING Final Result * ECG GENERIC (03/21/2021) 03/21/2021 Narrative 03/21/2021 Ordered by an unspecified provider. us Documents Scanned SCANNING Final Result documented in this encounter Visit Diagnoses Not on filedocumented in this encounter Additional Health Concerns Assessment Noted Time PHQ-9 Depression Total Score: 0 11/23/19 12:03 PM CDT documented as of this encounter Care Teams Nuclear Supervising Operator Relationship Specialty Start Date End Date Sanjeev Webster DO [address] [place] [address] PCP - General FAMILY PRACTICE 09/25/20 Dianne Johnson, RN [address] [place] [address] Road Grader Operator (Ambulatory) REGISTERED NURSE 08/14/20 documented as of this encounter
--- OUTSIDE RECORDS SUMMARY | 2024-03-15 01:08 | XMS_ITS | Encounter Summary ---
Author Organization [facility] - [facility] Address [address] [place] [address]. [place] [address] [place] [address] Care Team Providers Care Collection Advisor Name Role Phone Dianne Johnson RN Unavailable [phone] Sanjeev Webster DO Primary Care Provider + Reason for Visit * Reason Comments Lab (SCAN) Encounter Details Date Type Department Care Team (Latest Contact Info) Description 03/25/2021 Scan HEALTH INFO SRVCS Scanned, Documents Lab [...] COVID-19? No / Unsure 03/28/2021 10:03 AM VARNISH MAKER HELPER documented as of this encounter Plan of Treatment Upcoming Encounters Date Type Department Care Team (Late Contact Info) Description 04/14/2024 2:00 PM VARNISH MAKER HELPER Office Visit [facility] Medical Group Multispecialty Care - [address], [address] [place] [address] Julio Pulido MD [address] [place] [address] documented as of this encounter Goals Goal Patient Goal Type Associated Problems Recent Progress Patient-Stated? Author Health - patient able to perform ADLs independently General On track(2023 9:49 AM CDT) Dianne Corona, RN Note: 12/17/23: Patient stated she is independent with ASL's. documented as of this encounter Procedures Procedure Name Priority Date/Time Associated Diagnosis Comments OUTSIDE PT/INR (SCAN ORDER) 03/25/2021 OUTSIDE PT/INR (SCAN ORDER) 03/25/2021 documented in this encounter Results * OUTSIDE PT/INR (SCAN) (03/25/2021) 03/25/2021 Narrative 03/25/2021 Ordered by an unspecified provider. us Documents Scanned SCANNING Final Result * OUTSIDE PT/INR (SCAN) (03/25/2021) 03/25/2021 Narrative 03/25/2021 Ordered by an unspecified provider. us Documents Scanned SCANNING Final Result documented in this encounter Visit Diagnoses Not on filedocumented in this encounter Additional Health Concerns Assessment Noted Time PHQ-9 Depression Total Score: 0 11/23/19 21 12:03 PM CDT documented as of this encounter Care Teams Collection Advisor Relationship Specialty Start Date End Date Sanjeev Webster DO [address] [place] [address] PCP - General FAMILY PRACTICE 09/25/20 Dianne Johnson, RN [address] [place] [address] Personal Loan Specialist (Ambulatory) REGISTERED NURSE 08/14/20 documented as of this encounter
--- OUTSIDE RECORDS SUMMARY | 2024-03-15 01:08 | XMS_ITS | Encounter Summary ---
Author Organization [facility] - [facility] Address [address] [place] [address]. [place] [address] [place] [address] Care Team Providers Care Cartoonist Special Effects Name Role Phone Dianne Johnson RN Unavailable [phone] Sanjeev Webster DO Primary Care Provider + Reason for Visit * Reason Comments Echo (SCAN) Encounter Details Date Type Department Care Team (Latest Contact Info) Description 03/22/2021 Scan HEALTH INFO SRVCS Scanned, Documents Echo (SCAN) Social History Tobacco Use Types [...] COVID-19? No / Unsure 03/28/2021 10:03 AM SENIOR REPORT DEVELOPER documented as of this encounter Plan of Treatment Upcoming Encounters Date Type Department Care Team (Late st Contact Info) Description 04/14/2024 2:00 PM SENIOR REPORT DEVELOPER Office Visit [facility] Medical Group Multispecialty Care - [address], [address] [place] [address] Julio Pulido MD 3 [place] [address] documented as of this encounter Goals Goal Patient Goal Type Associated Problems Recent Progress Patient-Stated? Author Health - patient able to perform ADLs independently General On track(2023 9:49 AM CDT) Dianne Corona, RN Note: 12/17/23: Patient stated she is independent with ASL's. documented as of this encounter Procedures Procedure Name Priority Date/Time Associated Diagnosis Comments ECHO GENERIC (SCAN ORDER) 03/22/2021 ECHO GENERIC (SCAN ORDER) 03/22/2021 documented in this encounter Results * ECHO GENERIC (03/22/2021) Anatomical Region Laterality Modality Other 03/22/2021 Narrative 03/22/2021 Ordered by an unspecified provider. us Documents Scanned SCANNING Final Result * ECHO GENERIC (03/22/2021) Anatomical Region Laterality Modality Other 03/22/2021 Narrative 03/22/2021 Ordered by an unspecified provider. us Documents Scanned SCANNING Final Result documented in this encounter Visit Diagnoses Not on filedocumented in this encounter Additional Health Concerns Assessment Noted Time PHQ-9 Depression Total Score: 0 11/23/19 21 12:03 PM CDT documented as of this encounter Care Teams Cartoonist Special Effects Relationship Specialty Start Date End Date Sanjeev Webster DO [address] [place] [address] PCP - General FAMILY PRACTICE 09/25/20 Dianne Johnson, RN [address] [place] [address] Care Tech (Ambulatory) REGISTERED NURSE 08/14/20 documented as of this encounter
--- OUTSIDE RECORDS SUMMARY | 2024-03-15 01:08 | XMS_ITS | Encounter Summary ---
Author Organization [facility] Address [facility]6 [facility] [place] [address] [place] [address] Care Team Providers Care Natural Gas Treating Unit Operator Name Role Phone Dianne Johnson RN Unavailable [phone] Sanjeev Webster DO Primary Care Provider + Reason for Referral * Consultation (Routine) - Closed Specialty Diagnoses / Procedures Referred By Contivett t Referred To Contact NURSE PRACTITIONER ADULT HEALTH Diagnoses Atrial fibrillation with rapid ventricular response ([facility]/HCC [facility]) Sanjeev Webster DO [address] [place] [address] Phone: tel: fax: Ana Maria Hess, JIMBO [address] [facility] [address] [address] Phone: tel: fax: Referral ID Status Reason Start Date Expiration Date V isits Requested Visits Authorized [id number] Closed Specialty Services 03/30/2021 09/27/2021 6 6 Scheduling Instructions Just needs insurance referral. LAY CARD WRITER Reason for Visit * Reason Onset Date Comments Referral 03/14/2021 Encounter Details Date Type Department Care Team (Late st Contact Info) Description 03/14/2021 Telephone [facility] Medical Group Family & Internal Medicine - [place] [address] [place] [phone] Sanjeev Webster, DO [address] [place] [address] Referral Social History Tobacco Use Types Packs/Day [...] COVID-19? No / Unsure 02/28/2021 1:16 PM DISPLAY CARD WRITER documented as of this encounter Plan of Treatment Upcoming Encounters Date Type Department Care Team (Late st Contact Info) Description 04/14/2024 2:00 PM DISPLAY CARD WRITER Office Visit [facility] Medical Group Multispecialty Care - [facility] 3 [facility], [address] [place] [address] Julio Pulido MD 3 [place] [address] Scheduled Referrals Name Type Priority Associated Diagnoses Orde r Schedule Ambulatory referral to Cardiology, Adult (OTHER) Referral Routine Atrial fibrillation with rapid ventricular response ([facility]) Ordered: 03/14/2021 documented as of this encounter Goals Goal Patient Goal Type Associated Problems Recent Progress Patient-Stated? Author Health - patient able to perform ADLs independently General On track(2023 9:49 AM CDT) Dianne Corona, RN Note: 12/17/23: Patient stated she is independent with ASL's. documented as of this encounter Visit Diagnoses Diagnosis Atrial fibrillation with rapid ventricular response (CMS/HCC HHS/HCC)- Primary Atrial fibrillation documented in this encounter Additional Health Concerns Assessment Noted Time PHQ-9 Depression Total Score: 0 11/23/19 21 12:03 PM CDT documented as of this encounter Care Teams Natural Gas Treating Unit Operator Relationship Specialty Start Date End Date Sanjeev Webster DO [address] [place] [address] PCP - General FAMILY PRACTICE 09/25/20 Dianne Johnson, RN [address] [place] [address] Luster Repairer (Ambulatory) REGISTERED NURSE 08/14/20 documented as of this encounter
--- OUTSIDE RECORDS SUMMARY | 2024-03-15 01:08 | XMS_ITS | Encounter Summary ---
Author Organization [facility] - [facility] Address [address] [place] [address]. [place] [address] [place] [address] Care Team Providers Care Brick Off Bearer Name Role Phone Dianne Johnson RN Unavailable [phone] Sanjeev Webster DO Primary Care Provider + Reason for Visit * Reason Comments Lab (SCAN) Encounter Details Date Type Department Care Team (Latest Contact Info) Description 03/24/2021 Scan HEALTH INFO SRVCS Scanned, Documents Lab [...] COVID-19? No / Unsure 03/28/2021 10:03 AM BULK LOADER documented as of this encounter Plan of Treatment Upcoming Encounters Date Type Department Care Team (Late st Contact Info) Description 04/14/2024 2:00 PM BULK LOADER Office Visit [facility] Medical Group Multispecialty Care - [address], [address] [place] [address] Julio Pulido MD 3 [place] [address] documented as of this encounter Goals Goal Patient Goal Type Associated Problems Recent Progress Patient-Stated? Author Health - patient able to perform ADLs independently General On track(2023 9:49 AM CDT) No Dianne Johnson, RN Note: 12/17/23: Patient stated she is independent with ASL's. documented as of this encounter Procedures Procedure Name Priority Date/Time Associated Diagnosis Comments OUTSIDE LAB (SCAN ORDER) 03/24/2021 documented in this encounter Results * OUTSIDE LAB (SCAN) (03/24/2021) 03/24/2021 Narrative 03/24/2021 Ordered by an unspecified provider. us Documents Scanned SCANNING Final Result documented in this encounter Visit Diagnoses Not on filedocumented in this encounter Additional Health Concerns Assessment Noted Time PHQ-9 Depression Total Score: 0 11/23/19 21 12:03 PM CDT documented as of this encounter Care Teams Brick Off Bearer Relationship Specialty Start Date End Date Sanjeev Webster DO [address] [place] [address] PCP - General FAMILY PRACTICE 09/25/20 Dianne Johnson, RN [address] [place] [address] Dialysis Registered Nurse (Ambulatory) REGISTERED NURSE 08/14/20 documented as of this encounter
--- OUTSIDE RECORDS SUMMARY | 2024-03-15 01:08 | XMS_ITS | Encounter Summary ---
Author Organization [facility] Address [facility]6 [facility] [place] [address] [place] [address] Care Team Providers Care Hazardous Waste Technician Name Role Phone Dianne Johnson RN Unavailable [phone] Sanjeev Webster DO Primary Care Provider + Reason for Visit * Reason Onset Date Comments Care Management 03/22/2021 Encounter Details Date Type Department Care Team (Late st Contact Info) Description 03/22/2021 Patient Outreach [facility] Medical Group Family & Internal Medicine [address] [address] Stu Ruiz RN [address] [place] [address] Care Management Social History Tobacco [...] COVID-19? No / Unsure 02/28/2021 1:16 PM ONLINE RETAILER documented as of this encounter Progress Notes * Stu Ruiz RN - 03/22/2021 10:16 AM CST CC called patient to check on status and patient informed CC that patient is inpatient at [facility], as off yesterday 03/21/21, due to difficulty with breathing. CC team will follow upon hospital discharge. STU RUIZ RN NE RETAILER documented in this encounter Plan of Treatment Upcoming Encounters Date Type Department Care Team (Late st Contact Info) Description 04/14/2024 2:00 PM ONLINE RETAILER Office Visit [facility] Medical Group Multispecialty Care - [facility] 3 [facility], [address] [place] [address] Julio Pulido MD 3 [place] [address] documented as of this encounter Goals Goal [...] documented as of this encounter Care Teams Hazardous Waste Technician Relationship Specialty Start Date End Date Sanjeev Webster DO [address] [place] [address] PCP - General FAMILY PRACTICE 09/25/20 Dianne Johnson, RN [address] [place] [address] Director Design (Ambulatory) REGISTERED NURSE 08/14/20 documented as of this encounter
--- OUTSIDE RECORDS SUMMARY | 2024-03-15 01:08 | XMS_ITS | Encounter Summary ---
Author Organization [facility] Address [facility]6 [facility] [place] [address] [place] [address] Care Team Providers Care Mineral Mixer Name Role Phone Dianne Johnson RN Unavailable [phone] Sanjeev Webster DO Primary Care Provider + Reason for Visit * Reason Comments Hospital Follow Up Encounter Details Date Type Department Care Team (Late st Contact Info) Description 03/28/2021 10:00 AM TRADE RECRUITER Office Visit [facility] Medical Group Family & Internal Medicine [facility] [address] [place] [address] Camelia Washington, MARU [address] [place] [address] Hospital Follow Up Social History Tobacco Use Types [...] COVID-19? No / Unsure 03/28/2021 10:03 AM TRADE RECRUITER documented as of this encounter Last Filed Vital Signs Vital Sign Reading Time Taken Comments Blood Pressure 133/71 03/28/2021 10:49 AM TRADE RECRUITER Pulse 68 03/28/2021 10:12 AM TRADE RECRUITER Temperature 36.8 ??C (98.2 ??F) 03/28/2021 10:[address] Respiratory Rate 20 03/28/2021 10:12 AM TRADE RECRUITER Oxygen Saturation 98% 03/28/2021 10:12 AM TRADE RECRUITER Inhaled Oxygen Concentration - - Weight 87.1 kg (192 lb) 03/28/2021 10:12 AM TRADE RECRUITER Height 162.6 cm (5' 4 ) 03/28/2021 10:12 AM TRADE RECRUITER Body Mass Index 32.96 03/28/2021 10:12 AM TRADE RECRUITER documented in this encounter Progress Notes * MARU Hodge - 03/28/2021 10:00 AM CST Images from the original note were not included. [facility] FAMILY AND INTERNAL MEDICINE OFFICE VISIT Reason for Visit: Hospital Follow Up History of Present Illness: 75yo female with multiple chronic health issues to include COPD, atrial fibrillation, T2DM, HLD, HTN, prosthetic heart valve presents today for a hospital follow up. Unfortunately, at the time of patient's visit today not all of her notes from [facility] were available and pt alone is a poor historian. She was admitted to [facility] on 03/21/2021 and discharged on 03/25/2021.. She initially presented to the ER on March 21, 2021 with complaints of worsening shortness of breath with exertionand weakness for past 2 weeks. She denied any cough or fever. She was on antibiotics prior to [place] but had completed those. She is not on any home oxygen. She has been using her inhalers as ordered. She has had her Covid vaccination and booster. She denies any recent Covid exposure. Patient was on room air in the emergency room with oxygen saturation at 98 to 100%. Her initial creatinine in the ER was 1.3. Her chest x-ray read cardiomegaly. Chest CT was not indicative of a pulmonary embolus. She was given an aspirin in the emergency room. Her troponins were negative. She did complain of some reproducible epigastric pain in the ER but notes that she has a hiatal hernia. It appears cardiology was consulted and pt has a follow up appt scheduled with them later this week. She is followed by Dr. Paredes on a regular basis. ECHO read as abnormal aortic valve, but pt has a prosthetic aortic valve. No ALFRED ordered. No anemia noted. Pt not found to be in A fib. She does have a diagnosis of COPD which they felt may be contributing to her SOB. EKG showed sinus rhythm with left axis deviation and LBBB. INR was 2.8 on 03/25/2021. COVID was negative. She did not qualify for home oxygen. O2 sat today is 98% on room air. According to D/C summary received later--work up was unremarkable. While hospitalized she had significant relief of her symptoms with 0.5 mg of ativan and was dc'd home on 0,25 mg of xanax on top of the venlafaxine she is already taking. She has been tolerating the low dose xanax well with no bothersome side effects to include drowsiness. Wishes to continue this medication if possible. She is on venlafaxine as well for anxiety/depression. It was suggested pt have PFT's done on an outpatient basis and these can be ordered. Since discharge, states she has been feeling better. She is not accompanied by any family members at today's visit. Patient will continue follow-up with cardiology and they currently manage her INR. Her last INR while hospitalized was 2.8. There was a task put in regarding frequency of blood sugar checks and patient's PCP suggested she check once daily in the morning. Her last hemoglobin A1c was 6.2. ROS: Review of Systems Constitutional: Positive for malaise/fatigue. Negative for chills and fever. Respiratory: Positive for shortness of breath. Negative for cough. Cardiovascular: Positive for chest pain. Negative for leg swelling. Gastrointestinal: Negative for abdominal pain, diarrhea, nausea and vomiting. Musculoskeletal: Negative for myalgias. Neurological: Negative for dizziness and headaches. Psychiatric/Behavioral: Negative for depression and suicidal ideas. The patient is nervous/anxious. Medications: Current Outpatient Medications: ??? acetaminophen 325 [...] neededfor Anxiety., Disp: 30 tablet, Rfl: 0 Allergies: Allergies Allergen Reactions ??? Tape Contact Dermatitis ??? Bacitracin Other (see comment) ??? Benzalkonium Other (see comment) ??? Gramicidin Other (see comment) ??? Hydrocortisone Other (see comment) ??? Neomycin Other (see comment) ??? Polymyxin B Other (see comment) Medical History: Past Medical History: Diagnosis Date ??? 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 Anxiety ??? Atrial flutter (CMS/HCC) ??? Cataract ??? Chronic anticoagulation due to mechanical heart valve ??? Chronic pain ??? Diabetes mellitus (CMS/HCC) ??? H/O mechanical aortic valve replacement 2003 ??? Hypertension Surgical History: Past Surgical History: Procedure Laterality Date ??? REPAIR HEART WOUND Social History: Social History Socioeconomic History ??? [...] file Intimate Partner Violence: Not on file Family History: Family History Problem Relation Name Age of Onset ??? Heart Father ??? Heart Mother PE: Physical Exam Vitals and nursing note reviewed. HENT: Head: Normocephalic and atraumatic. Eyes: General: No scleral icterus. Conjunctiva/sclera: Conjunctivae normal. Neck: Trachea: No tracheal deviation. Cardiovascular: Rate and Rhythm: Normal rate and regular rhythm. Heart sounds: Normal heart sounds. No murmur heard. Pulmonary: Effort: Pulmonary effort is normal. No respiratory distress. Breath sounds: Normal breath sounds. No stridor. No wheezing. Abdominal: General: Bowel sounds are normal. There is no distension. Palpations: Abdomen is soft. There is no mass. Tenderness: There is no abdominal tenderness. There is no guarding or rebound. Musculoskeletal: General: No deformity. Normal range of motion. Cervical back: Normal range of motion and neck supple. Skin: General: Skin is warm and dry. Findings: No erythema. Neurological: General: No focal deficit present. Mental Status: She is alert and oriented to person, place, and time. Sensory: No sensory deficit. Motor: No weakness. Gait: Gait is intact. Gait normal. Psychiatric: Mood and Affect: Mood and affect normal. Filed Vitals: 03/28/21 1012 03/28/21 1049 BP: 147/69 133/71 Pulse: 68 Resp: 20 Temp: 98.2 ??F (36.8 ??C) SpO2: 98% Weight: 87.1 kg (192 lb) Height: 5' 4 (1.626 m) Labs: Labs Reviewed Diagnoses/Impression: 1. Shortness of breath Complete PFT (pre/post [place], Lung Vol, Diff Capacity) (31732, 41484, 34894,65252) 2. Anxiety 3. Paroxysmal atrial flutter (CMS/HCC) 4. Type 2 diabetes mellitus with diabetic peripheral angiopathy without gangrene, without long-termcurrent use of insulin (CMS/HCC) Recommendations and Plan: 1. Shortness of breath - Complete PFT (pre/post [place], Lung Vol, Diff Capacity) (10454, 36472, 22385, 03331); Future PFTs ordered for further evaluation of shortness of breath. We will plan after results. 2. Anxiety Xanax refilled today. Patient will continue current dose of venlafaxine. Stressed to patient to only take the Xanax on an as-needed basis and to continue take the venlafaxine daily. Would like her tofollow-up in the next couple of months. 3. Paroxysmal atrial flutter (CMS/HCC) Stable. Continue meds. Continue follow-up with cardiology. Heart rate controlled irregular today. 4. Type 2 diabetes mellitus with diabetic peripheral angiopathy without gangrene, without long-termcurrent use of insulin (CMS/HCC) Patient will continue once daily glucose checks in the morning. She will continue current medications. Orders Placed This Encounter ??? Complete PFT (pre/post [place], Lung Vol, Diff Capacity) (24831, 58427, 17243, 09920) Cannot display discharge medications since this is not an admission. PCP: MARU Hodge 04/03/2021 E RECRUITER documented in this encounter Plan of Treatment Upcoming Encounters Date Type Department Care Team (Late st Contact Info) Description 04/14/2024 2:00 PM TRADE RECRUITER Office Visit [facility] Medical Group Multispecialty Care - [facility] 3 [facility], [address] [place] [address] Julio Pulido MD 3 [place] [address] documented as of this encounter Goals Goal Patient Goal Type Associated Problems Recent Progress Patient-Stated? Author Health - patient able to perform ADLs independently General On track(2023 9:49 AM CDT) No Dianne Johnson, RN Note: 12/17/23: Patient stated she is independent with ASL's. documented as of this encounter Visit Diagnoses Diagnosis Shortness of breath- Primary Anxiety Anxiety state, unspecified Paroxysmal atrial flutter ([facility] HHS/HCC) Atrial flutter Type 2 diabetes mellitus with diabetic peripheral angiopathy without gangrene, without long-term current use of insulin ([facility] HHS/HCC) documented in this encounter Additional Health Concerns Assessment Noted Time PHQ-9 Depression Total Score: 0 11/23/19 21 12:03 PM CDT documented as of this encounter Care Teams Mineral Mixer Relationship Specialty Start Date End Date Sanjeev Webster DO [address] [place] [address] PCP - General FAMILY PRACTICE 09/25/20 Dianne Johnson, RN [address] [place] [address] Seo Marketing Specialist (Ambulatory) REGISTERED NURSE 08/14/20 documented as of this encounter
--- OUTSIDE RECORDS SUMMARY | 2024-03-15 01:08 | XMS_ITS | Encounter Summary ---
Author Organization [facility] Address [address] [place] [address]. [place] [address] [place] [address] Care Team Providers Care Cook Frozen Dessert Name Role Phone Dianne Johnson RN Unavailable [phone] Sanjeev Webster DO Primary Care Provider + Encounter Details Date Type Department Care Team (Latest Contact Info) Description 03/28/2021 Travel Social History Tobacco Use Types Packs/Day [...] COVID-19? No / Unsure 03/28/2021 10:03 AM CONCIERGE RECEPTIONIST documented as of this encounter Plan of Treatment Upcoming Encounters Date Type Department Care Team (Late st Contact Info) Description 04/14/2024 2:00 PM CONCIERGE RECEPTIONIST Office Visit [facility] Medical Group Multispecialty Care - [address], [address] [place] [address] Julio Pulido MD [address] [place] [address] documented as of this encounter Goals Goal [...] as of this encounter Care Teams Cook Frozen Dessert Relationship Specialty Start Date End Date Sanjeev Webster DO [address] [place] [address] PCP - General FAMILY PRACTICE 09/25/20 Dianne Johnson, RN [address] [place] [address] Enlisted Aircrew/Aerial Observer/Gunner (Ambulatory) REGISTERED NURSE 08/14/20 documented as of this encounter
--- OUTSIDE RECORDS SUMMARY | 2024-03-15 01:08 | XMS_ITS | Encounter Summary ---
Author Organization [facility] Address [facility]. [place], [place] [address] [place] [address] Care Team Providers Care License And Permit Specialist Name Role Phone Dianne Johnson RN Unavailable [phone] Sanjeev Webster DO Primary Care Provider + Reason for Referral * Consultation (Routine) - Closed Specialty Diagnoses / Procedures Referred By Ian malagon Referred To Contact ENDOCRINOLOGY Diagnoses Type 2 diabetes mellitus with diabetic peripheral angiopathy without gangrene, without long-term current use of insulin ([facility]) Hyperlipidemia, unspecified hyperlipidemia type Hypercalcemia Sanjeev [place] DO [address] [place] [address] Phone: tel: fax: Isabela Card MD [address] [address] Phone: tel: fax: Referral ID Status Reason Start Date Expiration Date Visits Re quested Visits Authorized [id number] Closed 04/29/2021 10/27/2021 6 6 IFYING ATTENDANT Reason for Visit * Reason Onset Date Comments Referral 03/19/2021 Encounter Details Date Type Department Care Team (Late st Contact Info) Description 03/19/[address] [facility] Medical Group Family & Internal Medicine [facility] [address] [place] [address] Sanjeev Webster DO [address] [place] [address] Referral Social History Tobacco Use Types Packs/Day [...] COVID-19? No / Unsure 02/28/2021 1:16 PM RECTIFYING ATTENDANT documented as of this encounter Progress Notes * Scarlett Guerrero MA - 03/19/2021 9:43 AM CST Patient needs new endo referral to dr xavier. Referral placed IFYING ATTENDANT documented in this encounter Plan of Treatment Upcoming Encounters Date Type Department Care Team (Late st Contact Info) Description 04/14/2024 2:00 PM RECTIFYING ATTENDANT Office Visit [facility] Medical Group Multispecialty Care - [address], [address] [place] [address] Julio Pulido MD 3 [place] [address] Scheduled Referrals Name Type Priority Associated Diagnoses Orde r Schedule Ambulatory referral to Endocrinology (OTHER) Referral Routine Type 2 diabetes mellitus with diabetic peripheral angiopathy without gangrene, without long-term current use of insulin ([facility]) Hyperlipidemia, unspecified hyperlipidemia type Hypercalcemia Ordered: 03/19/2021 documented as of this encounter Goals Goal [...] gangrene, without long-term current use of insulin ([facility])- Primary Hyperlipidemia, unspecified hyperlipidemia type Hypercalcemia documented in this encounter Additional Health Concerns Assessment Noted Time PHQ-9 Depression Total Score: 0 11/23/19 21 12:03 PM CDT documented as of this encounter Care Teams License And Permit Specialist Relationship Specialty Start Date End Date Sanjeev [place] DO [address] [place] [address] PCP - General FAMILY PRACTICE 09/25/20 Dianne Johnson, RN [address] [place] [address] Agent Based Modeler (Ambulatory) REGISTERED NURSE 08/14/20 documented as of this encounter
--- OUTSIDE RECORDS SUMMARY | 2024-03-15 01:08 | XMS_ITS | Encounter Summary ---
Author Organization [facility] Address [facility] [place] [address] [place] [address] Care Team Providers Care Roof Panel Hanger Name Role Phone Dianne Johnson RN Unavailable [phone] Sanjeev [place] DO Primary Care Provider + Reason for Visit * Reason Onset Date Comments Error 03/16/2021 Encounter Details Date Type Department Care Team (Late st Contact Info) Description 03/16/2021 Telephone [facility] Medical Group Family & Internal Medicine [place] [place] [address] Sanjeev [place] DO [facility]note 2]1 [place] [address] Error Social History Tobacco Use [...] COVID-19? No / Unsure 02/28/2021 1:16 PM SPRINKLER TRUCK DRIVER documented as of this encounter Progress Notes * Scarlett Guerrero MA - 03/16/2021 8:29 AM CST A user error has taken place: encounter opened in error, closed for administrative reasons. NKLER TRUCK DRIVER documented in this encounter Plan of Treatment Upcoming Encounters Date Type Department Care Team (Late st Contact Info) Description 04/14/2024 2:00 PM SPRINKLER TRUCK DRIVER Office Visit [facility] Medical Group Multispecialty Care - [facility] 3 [facility], [address] [place] [address] Julio Pulido MD 3 [place] [address] documented as of this encounter Goals Goal [...] documented as of this encounter Care Teams Roof Panel Hanger Relationship Specialty Start Date End Date Sanjeev [place] DO [address] [place] [address] PCP - General FAMILY PRACTICE 09/25/20 Dianne Johnson, RN [address] [place] [address] Food And Nutrition Services Supervisor (Ambulatory) REGISTERED NURSE 08/14/20 documented as of this encounter
--- OUTSIDE RECORDS SUMMARY | 2024-03-15 01:08 | XMS_ITS | Encounter Summary ---
Author Organization [facility] Address [facility]6 [place] [address] [place] [address] Care Team Providers Care Dredge Master Name Role Phone Dianne Johnson RN Unavailable [phone] Sanjeev Montez DO Primary Care Provider + Reason for Visit * Reason Onset Date Comments Refill Request 03/16/2021 Encounter Details Date Type Department Care Team (Late st Contact Info) Description 03/16/2021 Telephone [facility] Medical Group Family & Internal Medicine [place] [place] [address] Sanjeev Montez DO [facility]1 [place] [address] Refill Request Social History Tobacco [...] COVID-19? No / Unsure 02/28/2021 1:16 PM DOUBLE NEEDLE OPERATOR documented as of this encounter Progress Notes * Scarlett Guerrero MA - 03/16/2021 12:48 PM CST Refill request received from Pharmacy Last visit with SANJEEV MONTEZ in FAMILY PRACTICE was on: 02/28/2021 in [facility] No future appointments. [facility] [address] [place] [address] - [address] [place] [address] [place] [address] Current Outpatient Medications: ??? acetaminophen 325 MG tablet, Take 650 mg by mouth., Disp: , Rfl: ??? albuterol sulfate HFA 108 (90 Base) MCG/ACT inhaler, INHALE 2 PUFFS BY MOUTH EVERY 4 TO 6 HOURSAS NEEDED, Disp: 18 g, Rfl: 1 ??? amiodarone 200 MG tablet, Take 100 mg by mouth daily. , Disp: , Rfl: ??? atorvastatin 10 MG tablet, Take 10 mg by mouth daily., Disp: , Rfl: ??? azelastine (AZELASTINE) 0.1 % nasal spray, [...] (6 mg total) by mouth daily., Disp: 90 tablet, Rfl: 1 LE NEEDLE OPERATOR documented in this encounter Plan of Treatment Upcoming Encounters Date Type Department Care Team (Late st Contact Info) Description 04/14/2024 2:00 PM DOUBLE NEEDLE OPERATOR Office Visit [facility] Medical Group Multispecialty Care - [address], [address] [place] [address] Julio Pulido MD 3 [place] [address] documented as of this encounter Goals Goal Patient Goal Type Associated Problems Recent Progress Patient-Stated? Author Health - patient able to perform ADLs independently General On track(2023 9:49 AM CDT) No Dianne Johnson, RN Note: 12/17/23: Patient stated she is independent with ASL's. documented as of this encounter Visit Diagnoses Diagnosis HLD (hyperlipidemia)- Primary Other and unspecified hyperlipidemia documented in this encounter Additional Health Concerns Assessment Noted Time PHQ-9 Depression Total Score: 0 11/23/19 21 12:03 PM CDT documented as of this encounter Care Teams Dredge Master Relationship Specialty Start Date End Date Sanjeev Montez DO [address] [place] [address] PCP - General FAMILY PRACTICE 09/25/20 Dianne Johnson, RN [address] [place] [address] Income Tax Consultant (Ambulatory) REGISTERED NURSE 08/14/20 documented as of this encounter
--- OUTSIDE RECORDS SUMMARY | 2024-03-15 01:08 | XMS_ITS | Encounter Summary ---
Author Organization [facility] Address [address] [place] [address]. [place] [address] [place] [address] Care Team Providers Care Asset Administrator Name Role Phone Dianne Johnson RN Unavailable [phone] Sanjeev Webster DO Primary Care Provider + Reason for Visit * Reason Comments Image (SCAN) Encounter Details Date Type Department Care Team (Latest Contact Info) Description 03/11/2021 Scan HEALTH INFO SRVCS Scanned, Documents Image (SCAN) Social History Tobacco Use Types [...] COVID-19? No / Unsure 02/28/2021 1:16 PM AIRPORT OPERATIONS OFFICER documented as of this encounter Plan of Treatment Upcoming Encounters Date Type Department Care Team ( st Contact Info) Description 04/14/2024 2:00 PM AIRPORT OPERATIONS OFFICER Office Visit [facility] Medical Group Multispecialty Care - [address], [address] [place] [address] Julio Pulido MD 3 [place] [address] documented as of this encounter Goals Goal Patient Goal Type Associated Problems Recent Progress Patient-Stated? Author Health - patient able to perform ADLs independently General On track(2023 9:49 AM CDT) No Dianne Johnson, RN Note: 12/17/23: Patient stated she is independent with ASL's. documented as of this encounter Procedures Procedure Name Priority Date/Time Associated Diagnosis Comments IMAGE GENERIC 03/11/2021 documented in this encounter Results * IMAGE GENERIC (03/11/2021) Anatomical Region Laterality Modality Other 03/11/2021 Narrative 03/11/2021 Ordered by an unspecified provider. us Documents Scanned SCANNING Final Result documented in this encounter Visit Diagnoses Not on filedocumented in this encounter Additional Health Concerns Assessment Noted Time PHQ-9 Depression Total Score: 0 11/23/19 21 12:03 PM CDT documented as of this encounter Care Teams Asset Administrator Relationship Specialty Start Date End Date Sanjeev [place] DO [address] [place] [address] PCP - General FAMILY PRACTICE 09/25/20 Dianne Johnson, RN [address] [place] [address] Technology Support Analyst (Ambulatory) REGISTERED NURSE 08/14/20 documented as of this encounter
--- OUTSIDE RECORDS SUMMARY | 2024-03-15 01:08 | XMS_ITS | Encounter Summary ---
Author Organization [facility] Address [address] [place] [address]. [place], [place] [address] [place] [address] Care Team Providers Care Autistic Teacher Name Role Phone Dianne Johnson RN Unavailable [phone] Sanjeev [place] DO Primary Care Provider + Reason for Visit * Reason Onset Date Comments Appointment Request 05/03/2021 Encounter Details Date Type Department Care Team (Late st Contact Info) Description 05/03/2021 Telephone [facility] Medical Group Family & Internal Medicine [address] [address] Sanjeev [place] DO [facility]1 [place] [address] Appointment Request Social History Tobacco [...] of this encounter Progress Notes * Jacquelyn Wilkes MA - 05/03/2021 8:42 AM CST F/U can do a VV. Per Camelia. appt scheduled. Explained we need office notes to order a c-pap. BB 05/03/2021 RTMENT PLANNER documented in this encounter Plan of Treatment Upcoming Encounters Date Type Department Care Team (Late st Contact Info) Description 04/14/2024 2:00 PM ASSORTMENT PLANNER Office Visit [facility] Medical Group Multispecialty Care - [facility] 3 [facility], [address] [place] [address] Julio Pulido MD 3 [place] [address] documented as of this encounter Goals Goal Patient Goal Type Associated Problems Recent Progress Patient-Stated? Author Health - patient able to perform ADLs independently General On track(2023 9:49 AM CDT) Dianne Corona, DALE Note: 12/17/23: Patient stated she is independent with ASL's. Establish Plan for Symptom Monitoring-CHF General On track(2023 11:36 AM ASSORTMENT PLANNER) Dianne Corona, RN Note: Patient will recognize [...] Symptom Monitoring-COPD General On track(2023 11:36 AM ASSORTMENT PLANNER) Dianne Corona, RN Note: Patient will recognize [...] Symptom Monitoring-DM General On track(2023 4:33 PM ASSORTMENT PLANNER) Dianne Corona RN Note: Patient will manage [...] Symptom Monitoring-HTN General On track(2023 4:33 PM ASSORTMENT PLANNER) Dianne Corona, RN Note: Patient will monitor [...] documented as of this encounter Care Teams Autistic Teacher Relationship Specialty Start Date End Date Sanjeev [place] DO [address] [place] [address] PCP - General FAMILY PRACTICE 09/25/20 Dianne Johnson, RN [address] [place] [address] Subway Operator (Ambulatory) REGISTERED NURSE 08/14/20 documented as of this encounter
--- OUTSIDE RECORDS SUMMARY | 2024-03-15 01:08 | XMS_ITS | Encounter Summary ---
Author Organization [facility] Address [address] [place] [address]. [place] [address] [place] [address] Care Team Providers Care Surveillance Inspector Name Role Phone Dianne Johnson RN Unavailable [phone] Sanjeev Webster DO Primary Care Provider + Reason for Visit * Reason Comments PFT (SCAN) Encounter Details Date Type Department Care Team (Latest Contact Info) Description 03/31/2021 Scan HEALTH INFO SRVCS Scanned, Documents PFT (SCAN) Social History Tobacco Use Types Packs/Day [...] COVID-19? No / Unsure 03/28/2021 10:03 AM FACTORY ASSEMBLER documented as of this encounter Plan of Treatment Upcoming Encounters Date Type Department Care Team ( Contact Info) Description 04/14/2024 2:00 PM FACTORY ASSEMBLER Office Visit [facility] Medical Group Multispecialty Care - [address] [place] [address] Julio Pulido MD 3 [place] [address] documented as of this encounter Goals Goal Patient Goal Type Associated Problems Recent Progress Patient-Stated? Author Health - patient able to perform ADLs independently General On track(2023 9:49 AM CDT) No Dianne Johnson, RN Note: 12/17/23: Patient stated she is independent with ASL's. documented as of this encounter Procedures Procedure Name Priority Date/Time Associated Diagnosis Comments PFT GENERIC (SCAN ORDER) 03/31/2021 documented in this encounter Results * PFT GENERIC (03/31/2021) 03/31/2021 Narrative 03/31/2021 Ordered by an unspecified provider. us Documents Scanned SCANNING Final Result documented in this encounter Visit Diagnoses Not on filedocumented in this encounter Additional Health Concerns Assessment Noted Time PHQ-9 Depression Total Score: 0 11/23/19 21 12:03 PM CDT documented as of this encounter Care Teams Surveillance Inspector Relationship Specialty Start Date End Date Sanjeev [place] DO [address] [place] [address] PCP - General FAMILY PRACTICE 09/25/20 Dianne Johnson, RN [address] [place] [address] Automation Technologist (Ambulatory) REGISTERED NURSE 08/14/20 documented as of this encounter
--- OUTSIDE RECORDS SUMMARY | 2024-03-15 01:08 | XMS_ITS | Encounter Summary ---
Author Organization [facility] Address [facility] [place] [address] [place] [address] Care Team Providers Care Tongue And Quarter Stitcher Name Role Phone Dianne Johnson RN Unavailable [phone] Sanjeev [place] DO Primary Care Provider + Encounter Details Date Type Department Care Team (Latest Contact Info) Description 04/02/2021 Scan HEALTH INFO SRVCS Scanned, Documents Social [...] COVID-19? No / Unsure 03/28/2021 10:03 AM KILN PULLER documented as of this encounter Plan of Treatment Upcoming Encounters Date Type Department Care Team (Late st Contact Info) Description 04/14/2024 2:00 PM KILN PULLER Office Visit [facility] Medical Group Multispecialty Care - [address], [address] [place] [address] Julio Pulido MD 3 [place] [address] documented as of this encounter Goals Goal [...] documented as of this encounter Care Teams Tongue And Quarter Stitcher Relationship Specialty Start Date End Date Sanjeev [place] DO [address] [place] [address] PCP - General FAMILY PRACTICE 09/25/20 Dianne Johnson, RN [facility] [place] [address] Cricket Coach (Ambulatory) REGISTERED NURSE 08/14/20 documented as of this encounter
--- OUTSIDE RECORDS SUMMARY | 2024-03-15 01:08 | XMS_ITS | Encounter Summary ---
Author Organization [facility] Address [facility]6 [facility]. [place], [place] [address] [place] [address] Care Team Providers Care Blood Donor Recruiter Name Role Phone Dianne Johnson RN Unavailable [phone] Sanjeev [place] DO Primary Care Provider + Reason for Visit * Reason Onset Date Comments Question 05/16/2021 Encounter Details Date Type Department Care Team (Late st Contact Info) Description 05/16/2021 Telephone [facility] Medical Group Family & Internal Medicine [address] [address] Sanjeev [place] DO [facility]1 [place] [address] Question Social History Tobacco Use [...] as of this encounter Progress Notes * SUHAIL Rosenthal - 05/16/2021 11:05 AM CST Patient called to say she thinks she had a stroke last week. Wanted to know if she needed to come in. I told her she needed to go to the ER STAT. There was nothing we could do at the office and to call back once she has been discharged from the hospital RVISOR REWORK documented in this encounter Plan of Treatment Upcoming Encounters Date Type Department Care Team (Late st Contact Info) Description 04/14/2024 2:00 PM SUPERVISOR REWORK Office Visit [facility] Medical Group Multispecialty Care - [facility] 3 [facility], [address] [place] [address] Julio Pulido MD 3 [place] [address] documented as of this encounter Goals Goal Patient Goal Type Associated Problems Recent Progress Patient-Stated? Author Health - patient able to perform ADLs independently General On track(2023 9:49 AM CDT) Dianne Corona RN Note: 12/17/23: Patient stated she is independent with ASL's. Establish Plan for Symptom Monitoring-CHF General On track(2023 11:36 AM SUPERVISOR REWORK) Dianne Corona, RN Note: Patient will recognize [...] Monitoring-COPD General On track(2023 11:36 AM SUPERVISOR REWORK) Dianne Corona RN Note: Patient will recognize [...] Monitoring-DM General On track(2023 4:33 PM SUPERVISOR REWORK) Dianne Corona RN Note: Patient will manage [...] Monitoring-HTN General On track(2023 4:33 PM SUPERVISOR REWORK) Dianne Corona RN Note: Patient will monitor [...] documented as of this encounter Care Teams Blood Donor Recruiter Relationship Specialty Start Date End Date Sanjeev [place] DO [address] [place] [address] PCP - General FAMILY PRACTICE 09/25/20 Dianne Johnson, RN [address] [place], [place] [address] Archives Technician (Ambulatory) REGISTERED NURSE 08/14/20 documented as of this encounter
--- OUTSIDE RECORDS SUMMARY | 2024-03-15 01:08 | XMS_ITS | Encounter Summary ---
Author Organization [facility] Address [facility]6 [facility] [place] [address] [place] [address] Care Team Providers Care Associate Chief Nurse Name Role Phone Dianne Johnson RN Unavailable [phone] Sanjeev [place] DO Primary Care Provider + Reason for Visit * Reason Onset Date Comments Medication Request 02/18/2021 Encounter Details Date Type Department Care Team (Late st Contact Info) Description 02/18/2021 Telephone [facility] Medical Group Family & Internal Medicine [address] [address] Sanjeev [place] DO [facility] [place] [address] Medication Request Social History Tobacco [...] Progress Notes * Scarlett Guerrero MA - 02/18/2021 5:23 PM CST Patient notified and v/u , rx sent S AND MARKETING EXECUTIVE * Sanjeev [place] DO - 02/18/2021 3:47 PM CST Can do a z-pack; may need VV if not improving. S AND MARKETING EXECUTIVE * Adrianne Elizabeth - 02/18/2021 1:36 PM CST Patient is calling in with a clogged nose and a head ache. Denies fever, sore throat, and cough. She has tried Robitussin dm and nose spray and states that it is not working. States that she Feels terrible. Patient did go to [facility] on 02/15 and got a covid, it was negative. Patient is asking ig there is something that we can send out for her. S AND MARKETING EXECUTIVE documented in this encounter Plan of Treatment Upcoming Encounters Date Type Department Care Team (Late st Contact Info) Description 04/14/2024 2:00 PM SALES AND MARKETING EXECUTIVE Office Visit [facility] Medical Group Multispecialty Care - [address], [address] [place] [address] Julio Pulido MD [address] [place] [address] documented as of this encounter Goals Goal [...] documented as of this encounter Care Teams Associate Chief Nurse Relationship Specialty Start Date End Date Sanjeev [place] DO [address] [place] [address] PCP - General FAMILY PRACTICE 09/25/20 Dianne Johnson, RN [facility]1 [place] [address] Stove Polisher (Ambulatory) REGISTERED NURSE 08/14/20 documented as of this encounter
--- OUTSIDE RECORDS SUMMARY | 2024-03-15 01:08 | XMS_ITS | Encounter Summary ---
Author Organization [facility] Address [facility] [place] [address] [place] [address] Care Team Providers Care Non Destructive Evaluation Specialist Name Role Phone Dianne Johnson RN Unavailable [phone] Sanjeev Webster DO Primary Care Provider + Reason for Visit * Reason Onset Date Comments Follow Up Call 03/27/2021 Encounter Details Date Type Department Care Team (Late st Contact Info) Description 03/27/2021 Telephone [facility] Family & Internal Medicine [address] [address] Sanjeev Webster DO [address] [place] [address] Follow Up Call Social History Tobacco [...] COVID-19? No / Unsure 03/28/2021 10:03 AM ADOLESCENT SPECIALIST documented as of this encounter Progress Notes * Scarlett Guerrero MA - 03/28/2021 10:14 AM CST Izzy notified and v/u ESCENT SPECIALIST * Scarlett Guerrero MA - 03/28/2021 10:12 AM CST No answer vm full 03/28/21 ESCENT SPECIALIST * Sanjeev Webster DO - 03/27/2021 4:20 PM CST Once daily fasting is sufficient. Last A1c was 6.2 on no medications. ESCENT SPECIALIST * Dianne Johnson RN - 03/27/2021 2:15 PM CST Images from the original note were not included. D/C from [facility] on 03/25/21. Contacted [facility] and D/C summary is not available at this time. received D/C packet from [facility] instead. Hospital records faxed to today at1:06 PM. See confirmation below: Patient scheduled to see Camelia CHOI tomorrow and will need to review records. Medication list reconciled but Izzy will have patient bring in updated medication list to appointment tomorrow. Please address the followin. From D/C instructions patient received from [facility]: 2. FYI: Izzy ([id number]) stated Cardiology manages patient's INR. She will contact them todayto find out when patient needs an INR again. According to patient's D/C instructions she needs to f/u with Dr.Eric Carrera. Izzy will call and find out if patient is supposed to see or . She will call CC or office when she finds out to get a referral from [facility]. 3. Patient is not checking BS at home. How often should she be checking? Please discuss at upcomingappointment. Thank you. ESCENT SPECIALIST ESCENT SPECIALIST documented in this encounter Plan of Treatment Upcoming Encounters Date Type Department Care Team (Late st Contact Info) Description 04/14/2024 2:00 PM ADOLESCENT SPECIALIST Office Visit [facility] Multispecialty Care - [facility] 3 [facility], [address] [place] [address] Julio Pulido MD 3 [place] [address] documented as of this encounter Goals Goal [...] documented as of this encounter Care Teams Non Destructive Evaluation Specialist Relationship Specialty Start Date End Date Sanjeev Webster DO [address] [place] [address] PCP - General FAMILY PRACTICE 09/25/20 Dianne Johnson, RN [address] [place] [address] Curriculum Writer (Ambulatory) REGISTERED NURSE 08/14/20 documented as of this encounter
--- OUTSIDE RECORDS SUMMARY | 2024-03-15 01:08 | XMS_ITS | Encounter Summary ---
Author Organization [facility] Address [facility] [place] [address] [place] [address] Care Team Providers Care Therapeutic Recreation Specialist Name Role Phone Dianne Johnson RN Unavailable [phone] Sanjeev Montez DO Primary Care Provider + Reason for Visit * Reason Onset Date Comments Refill Request 04/19/2021 Encounter Details Date Type Department Care Team (Late st Contact Info) Description 04/19/2021 Telephone [facility] Medical Group Family & Internal Medicine [address] [address] Sanjeev Montez DO [facility] [place] [address] Refill Request Social History Tobacco [...] COVID-19? No / Unsure 03/28/2021 10:03 AM HOTEL ROOM ATTENDANT documented as of this encounter Progress Notes * Ltaha Toribion RingRAAD najera - 04/19/2021 3:17 PM CST Refill request received from Patient Alprazolam 0.25mg Last filled: 03/29/21 Last visit with SANJEEV MONTEZ in FAMILY PRACTICE was on: 02/28/[address] [facility] No future appointments. [facility] [address] [place] [address] - [facility] [address] [address] Current Outpatient Medications: ??? acetaminophen 325 MG [...] other days), Disp: 90 tablet, Rfl: 1 L ROOM ATTENDANT * Lashawn Vega - 04/19/2021 2:28 PM CST Needs refill on alprazolam 25mg. Will need this medication by Thursday. L ROOM ATTENDANT documented in this encounter Plan of Treatment Upcoming Encounters Date Type Department Care Team (Late st Contact Info) Description 04/14/2024 2:00 PM HOTEL ROOM ATTENDANT Office Visit [facility] Medical Group Multispecialty Care - [facility] 3 [facility], [address] [place] [address] Julio Pulido MD 3 [place] [address] documented as of this encounter Goals Goal [...] documented as of this encounter Care Teams Therapeutic Recreation Specialist Relationship Specialty Start Date End Date Sanjeev Montez DO [address] [place] [address] PCP - General FAMILY PRACTICE 09/25/20 Dianne Johnson, RN [address] [place] [address] Hydraulic Rubbish Compactor Mechanic (Ambulatory) REGISTERED NURSE 08/14/20 documented as of this encounter
--- OUTSIDE RECORDS SUMMARY | 2024-03-15 01:09 | XMS_ITS | Encounter Summary ---
Author Organization [facility] Address [address] [place] [address]. [place] [address] [place] [address] Care Team Providers Care Sales Audit Clerk Name Role Phone Dianne Johnson RN Unavailable [phone] Sanjeev Webster DO Primary Care Provider + Encounter Details Date Type Department Care Team (Latest Contact Info) Description 12/28/2020 Travel Social History Tobacco Use Types Packs/Day [...] have Coronavirus / COVID-19? No / Unsure 12/28/2020 10:42 AM CDT documented as of this encounter Plan of Treatment Upcoming Encounters Date Type Department Care Team (Late st Contact Info) Description 04/14/2024 2:00 PM ORNAMENTAL METAL WORKER HELPER Office Visit [facility] Medical Group Multispecialty Care - [address], [address] [place] [address] Julio Pulido MD 3 [place] [address] documented as of this encounter Goals Goal [...] as of this encounter Care Teams Sales Audit Clerk Relationship Specialty Start Date End Date Sanjeev Webster DO [address] [place] [address] [id number] PCP - General FAMILY PRACTICE 09/25/20 Dianne Johnson, RN [address] [place] [address] Picker Feeder (Ambulatory) REGISTERED NURSE 08/14/20 documented as of this encounter
--- OUTSIDE RECORDS SUMMARY | 2024-03-15 01:09 | XMS_ITS | Encounter Summary ---
Author Organization [facility] Address [facility]6 [facility] [place] [address] [place] [address] Care Team Providers Care Carbonation Equipment Operator Name Role Phone Casey Johnson RN Unavailable [phone] Sanjeev Webster DO Primary Care Provider + Reason for Visit * Reason Onset Date Comments Care Management 12/26/2020 Encounter Details Date Type Department Care Team (Late st Contact Info) Description 12/26/2020 Patient Outreach [facility] Medical Group Family & Internal Medicine [address] [address] Casey Johnson RN [address] [place] [address] Care Management Social History Tobacco [...] Progress Notes * Casey Johnson, RN - 12/26/2020 12:15 PM CDT Chronic Care Management: Patient Status: 12/26: Contacted patient and she was busy. Stated she will call CC back. 12/27: Contacted patient and confirmed appointment with on 12/31/20 at 1:40 PM. Informed she has an appointment at 10:40 am as well with the nurse. Patient wants to know if she should come in at 10:40 am on Thursday. Message sent to 's nursing team. Stated she received paperwork to complete so she can apply for food stamps etc. Stated she is having a hard time writing with her right hand. [id number] told her to use her left hand which she stated is not working. Message sent to [facility] BHATTI) to find out if she can be of assistance. Patient is aware. Plan of Care: Follow up with on 12/31/20 or call before that time if needed. Patient Goals: Goals Addressed This Visit's [...] hematoma doing good and shrinking a lot. ??? Health - patient able to perform [...] dishes her back hurts. Reports Tylenol or Herreid helps a little. Message sent to [facility] BHATTI) to find out the status on structural metal worker. 10/23/20: Independent with ADL's. 12/10/20: Patient having issues sweeping etc since right hand fx. Stated she will contact [employer] tofind out if another structural metal worker will be helping her. Stated she prefers to wait until after she comes back from visiting her son in [place]. 12/27/20: Patient stated she is having issues getting a structural metal worker due to [employer] being short staffed. Stated she plans on calling them back today to find out status. Stated her pastors daughter put in application to help her about 1 1/2 months ago but she hasn't received a call. Stated she will call them today. Upcoming Visit Appointments: Future Appointments Date Time Provider Department Center 12/31/2020 10:40 AM [facility] AWV NURSE MGFMMRVL [facility] 12/31/2020 1:40 PM Sanjeev Webster, MGFMMRVL [facility] 01/04/2021 10:30 AM ALEX NM INJ RM 2 [facility] HS ALEX 01/04/2021 10:45 AM ALEX NM CAM 1 [facility] HS ALEX 01/04/2021 12:30 PM ALEX NM CAM 1 [facility] H[facility]S ALEX 01/04/2021 2:30 PM ALEX NM CAM 1 [facility] HS ALEX Quality care gaps: Health Maintenance Topic Date Due ??? Lipid Panel Never done ??? Diabetes: Retinopathy Eye Exam Never done ??? DEXA SCAN (GENERAL) Never done ??? Medicare Wellness Visit Never done ??? Zoster Vaccines (2 of 3) 02/19/2016 ??? COVID-19 Vaccine (3 - Pfizer booster) 12/02/2020 ??? Hemoglobin A1C 2021 ??? DTaP, Tdap and Td Vaccines (3 - Td) 09/05/2030 ??? Influenza Adult Completed ??? Pneumococcal ages 65 years and older Completed ??? MENINGOCOCCAL VACCINE Aged Out Problem List: Patient Active Problem List Diagnosis ??? Abnormal stress test ??? Bradycardia ??? Chronic anticoagulation ??? Coronary artery disease involving lime coronary artery of lime heart without angina pectoris ??? Diabetes mellitus [...] nostril as directed 30 mL 1 ??? Cholecalciferol (VITAMIN D3) 25 MCG [...] Indications: Chronic Pain 60 tablet 0 ??? lidocaine 5 % Apply [...] mg total) by mouth see administration instructions. Ltpa3ww tablet on , fridays and mondays 270 tablet 1 ??? warfarin 6 MG tablet Take 1 tablet (6 mg total) by mouth daily. 90 tablet 1 No current facility-administered medications for this visit. CASEY JOHNSON RN * Trixie Jose MA - 12/26/2020 12:15 PM CDT Patient contacted and informed that the nurse that does the Wellness visits will be out of the office on Thursday and that she Can just come to Dr Mishra appointment at 1:40. Voiced understanding. documented in this encounter Plan of Treatment Upcoming Encounters Date Type Department Care Team (Late st Contact Info) Description 04/14/2024 2:00 PM RAW MATERIAL PLANNER Office Visit [facility] Medical Group Multispecialty Care - [facility] 3 [facility], [address] [place] [address] Julio Pulido MD 3 [place] [address] documented as of this encounter Goals Goal [...] documented as of this encounter Care Teams Carbonation Equipment Operator Relationship Specialty Start Date End Date Sanjeev Webster DO [address] [place] [address] PCP - General FAMILY PRACTICE 09/25/20 Casey Johnson, RN [address] [place] [address] School Supervisor (Ambulatory) REGISTERED NURSE 08/14/20 documented as of this encounter
--- OUTSIDE RECORDS SUMMARY | 2024-03-15 01:09 | XMS_ITS | Encounter Summary ---
Author Organization [facility] Address [address] [place] [address]. [place] [address] [place] [address] Care Team Providers Care Web Applications Administrator Name Role Phone Dianne Johnson RN Unavailable [phone] Sanjeev Webster DO Primary Care Provider + Encounter Details Date Type Department Care Team (Latest Contact Info) Description 01/04/2021 Travel Social History Tobacco Use Types Packs/Day [...] have Coronavirus / COVID-19? No / Unsure 01/04/2021 7:56 AM CDT documented as of this encounter Plan of Treatment Upcoming Encounters Date Type Department Care Team (Late st Contact Info) Description 04/14/2024 2:00 PM WEB DESIGNER DEVELOPER Office Visit [facility] Medical Group Multispecialty Care - [address], [address] [place] [address] Julio Pulido MD 3 [place] [address] documented as of this encounter Goals Goal [...] as of this encounter Care Teams Web Applications Administrator Relationship Specialty Start Date End Date Sanjeev Webster DO [address] [place] [address] [phone] PCP - General FAMILY PRACTICE 09/25/20 Dianne Johnson, RN [address] [place] [address] Maxillofacial Surgeon (Ambulatory) REGISTERED NURSE 08/14/20 documented as of this encounter
--- OUTSIDE RECORDS SUMMARY | 2024-03-15 01:09 | XMS_ITS | Encounter Summary ---
Author Organization [facility] Address [facility] [facility] [place] [address] [place] [address] Care Team Providers Care Honest John Rocket Crew Member Name Role Phone Dianne Johnson RN Unavailable [phone] Sanjeev Webster DO Primary Care Provider + Encounter Details Date Type Department Care Team (Latest Contact Info) Description 01/04/2021 7:58 AM CDT - 01/04/2021 11:59 PM CDT Hospital Encounter [facility] [address] [place], [place] [id number] [place] [address] [facility] [address] [place] [address] Discharge Disposition: Home or Self Care (Routine [...] obstructive pulmonary disease, unspecified COPD type ([facility]) INHALE 2 PUFFS BY MOUTH EVERY 4 TO 6 HOURS NEEDED 18 g 1 1 03/19/19 22 amiodarone 200 MG tablet Take 100 mg by mouth daily. 0 09/27/19 22 atorvastatin 10 MG tablet Take 10 mg by mouth daily. 0 03/16/19 22 azelastine (AZELASTINE) 0.1 % nasal sprayIndications:Ch ronic frontal sinusitis,Seasonal allergic rhinitis, unspecified trigger 1 spray by Nasal route 2 (two) times daily. Use in each nostril as directed 30 mL 1 1 10/16/19 22 CONTOUR NEXT TEST test strip USE 1 STRIP TO CHECK GLUCOSE THREE TIMES DAILY 0 10/16/19 22 FEROSUL 325 (65 Fe) MG tabletIndications:I elida deficiency anemia, unspecified iron deficiency anemia type Take 1 tablet (325 mg total) by mouth daily. 90 tablet 1 1 06/28/19 22 furosemide 20 MG tabletIndications:H ypertensive heart disease with congestive heart failure, unspecified heart failure type ([facility]) Take 1 tablet (20 mg total) by mouth daily. 90 tablet 1 1 02/29/20 21 gabapentin 300 MG capsuleIndications: Back pain Take 1 capsule (300 mg total) by mouth 2 (two) times daily. 180 capsule 1 01/17/20 22 HYDROcodone-acetami nophen 10-325 MG tabletIndications:C hronic Pain Take 1 tablet by mouth every 6 (six) hours as needed for Pain. Indications: Chronic Pain 60 tablet 1 02/22/20 21 lidocaine 5 %Indications:Neck pain Apply pain patch to affected area. Change after 12 hours. 6 patch 1 03/21/19 23 lisinopril 40 MG tabletIndications:H ypertensive urgency Take 1 tablet (40 mg total) by mouth daily. 30 tablet 1 1 02/29/20 21 omeprazole 20 MG capsule Take 1 capsule [...] total) by mouth daily. 90 capsule 1 06/18/19 22 warfarin 1 MG tabletIndications:H /O mechanical aortic valve replacement Take 3 tablets (3 mg total) by mouth see administration instructions. With 6mg tablet on , fridays and mondays 270 tablet 1 10/16/19 22 warfarin 6 MG tabletIndications:R equires lifelong warfarin therapy,H/O mechanical aortic valve replacement Take 1 tablet (6 mg total) by mouth daily. 90 tablet 1 02/07/20 21 documented as of this encounter Plan of Treatment Upcoming Encounters Date Type Department Care Team (Late st Contact Info) Description 04/14/2024 2:00 PM GRADUATE ADVISOR Office Visit [facility] Medical Group Multispecialty Care - [address], [address] [place] [address] Julio Pulido MD [address] [place] [address] documented as of this encounter Goals Goal Patient Goal Type Associated Problems Recent Progress Patient-Stated? Author Health - patient able to perform ADLs independently General On track(2023 9:49 AM CDT) Dianne Corona RN Note: 12/17/23: Patient stated she is independent with ASL's. documented as of this encounter Visit Diagnoses Not on filedocumented in this encounter Administered Medications Inactive Administered Medications - up to 3 most recent administrations Medication Order MAR Action Action Date Dose Rate Site lidocaine (XYLOCAINE) 2 % jelly Topical, Once, 1 dose, On Thu01/04/21 at 0900 Given 01/04/2021 8:39 AM CDT 1 Tube documented in this encounter Additional Health Concerns Assessment Noted Time PHQ-9 Depression Total Score: 0 11/23/19 12:03 PM CDT documented as of this encounter Care Teams Honest John Rocket Crew Member Relationship Specialty Start Date End Date Sanjeev Webster DO [address] [place] [phone] PCP - General FAMILY PRACTICE 09/25/20 Dianne Johnson, RN [address] [place] [address] Center Medical And Lab Director (Ambulatory) REGISTERED NURSE 08/14/20 documented as of this encounter
--- OUTSIDE RECORDS SUMMARY | 2024-03-15 01:09 | XMS_ITS | Encounter Summary ---
Author Organization [facility] Address [facility]6 [place] [address] [place] [address] Care Team Providers Care Medical Administrative Assistant Name Role Phone Dianne Johnson RN Unavailable [phone] Sanjeev Webster DO Primary Care Provider + Reason for Visit * Reason Onset Date Comments Lab Results 12/14/2020 Encounter Details Date Type Department Care Team (Late st Contact Info) Description 12/14/2020 Telephone [facility] Medical Group Family & Internal Medicine [address] [address] Sanjeev Webster DO [facility] [place] [address] Lab Results Social History Tobacco [...] have Coronavirus / COVID-19? No / Unsure 12/12/2020 2:41 PM CDT documented as of this encounter Progress Notes * Scarlett Guerrero MA - 12/18/2020 4:41 PM CDT Patient notified and states she has only been taking one daily and will now take one every other day * Sanjeev Webster DO - 12/16/2020 3:42 PM CDT Then pt needs to decrease to one tablet daily. * Latha Ring MA - 12/14/2020 4:02 PM CDT Patient informed and v/u. She states she has been taking 2 tablets daily? Directions in chart stateone tablet daily * Latha Ring MA - 12/14/2020 4:01 PM CDT ----- Message from Sanjeev Webster DO sent at 12/13/2020 9:08 PM CDT ----- Pt's kidney function continues to decrease; she needs to take her furosemide every other day instead of every day. Will recheck at next OV on 12/31/20. documented in this encounter Plan of Treatment Upcoming Encounters Date Type Department Care Team (Late st Contact Info) Description 04/14/2024 2:00 PM DEAL ARCHITECT Office Visit [facility] Medical Group Multispecialty Care - [facility] 3 [facility], [address] [place] [address] Julio Pulido MD 3 [place] [address] documented as of this encounter Goals Goal [...] as of this encounter Care Teams Medical Administrative Assistant Relationship Specialty Start Date End Date Sanjeev Webster DO [address] [place] [address] PCP - General FAMILY PRACTICE 09/25/20 Dianne Johnson, RN [address] [place] [address] Dusting And Brushing Machine Operator (Ambulatory) REGISTERED NURSE 08/14/20 documented as of this encounter
--- OUTSIDE RECORDS SUMMARY | 2024-03-15 01:09 | XMS_ITS | Encounter Summary ---
Author Organization [facility] Address Pending sale to [facility] [place] [address] [place] [address] Care Team Providers Care Returned Goods Inspector Name Role Phone Dianne Johnson RN Unavailable [phone] Sanjeev Webster DO Primary Care Provider + Encounter Details Date Type Department Care Team (Latest Contact Info) Description 12/25/2020 Scan HEALTH INFO SRVCS Scanned, Documents Social [...] st Contact Info) Description 04/14/2024 2:00 PM MILLING SUPERVISOR Office Visit [facility] Medical Group Multispecialty Care - [address], [address] [place] [address] Julio Pulido MD 3 [place] [address] documented as of this encounter Goals Goal [...] documented as of this encounter Care Teams Returned Goods Inspector Relationship Specialty Start Date End Date Sanjeev Webster DO [address] [place] [address] PCP - General FAMILY PRACTICE 09/25/20 Dianne Johnson, RN [address] [place] [address] Electric Dolly Operator (Ambulatory) REGISTERED NURSE 08/14/20 documented as of this encounter
--- OUTSIDE RECORDS SUMMARY | 2024-03-15 01:09 | XMS_ITS | Encounter Summary ---
Author Organization [facility] Address [facility]6 [facility] [place] [address] [place] [address] Care Team Providers Care Thread Spinner Name Role Phone Dianne Johnson RN Unavailable [phone] Sanjeev Webster DO Primary Care Provider + Encounter Details Date Type Department Care Team (Latest Contact Info) Description 12/21/2020 10:41 AM CDT - 12/21/2020 11:59 PM CDT Hospital Encounter [facility] [address] [place] [address] Tanisha Galan, MARU [address] [place] [address] Discharge Disposition: Home or Self Care (Routine [...] have Coronavirus / COVID-19? No / Unsure 12/21/2020 10:40 AM CDT documented as of this [...] Chronic obstructive pulmonary disease, unspecified COPD type ([facility]) INHALE 2 PUFFS BY MOUTH EVERY 4 [...] total) by mouth daily. 90 tablet 1 0 12/29/19 21 furosemide 20 MG tabletIndications:H ypertensive heart disease with congestive heart failure, unspecified heart failure type ([facility]) Take 1 tablet (20 mg total) [...] by mouth daily. 30 tablet 1 1 01/05/20 21 omeprazole 20 MG capsule Take 1 [...] st Contact Info) Description 04/14/2024 2:00 PM FUEL CELL DESIGNER Office Visit [facility] Medical Group Multispecialty Care - [address], [address] [place] [address] Julio Pulido MD [address] [place] [address] documented as of this encounter Goals Goal [...] % jelly Topical, Once, 1 dose, On Thu12/21/20 at 1115 Given 12/21/2020 11:09 AM CDT 1 Tube Other documented in this encounter Additional Health Concerns Assessment Noted Time PHQ-9 Depression Total Score: 0 11/23/19 12:03 PM CDT documented as of this encounter Care Teams Thread Spinner Relationship Specialty Start Date End Date Sanjeev Webster DO [address] [place] [address] PCP - General FAMILY PRACTICE 09/25/20 Dianne Johnson, RN [address] [place] [address] Mold Preparer (Ambulatory) REGISTERED NURSE 08/14/20 documented as of this encounter
--- OUTSIDE RECORDS SUMMARY | 2024-03-15 01:09 | XMS_ITS | Encounter Summary ---
Author Organization [facility] Address Pending sale to [facility] [place] [address] [place] [address] Care Team Providers Care Bucket Hooker Name Role Phone Dianne Johnson RN Unavailable [phone] Sanjeev Webster DO Primary Care Provider + Reason for Visit * Reason Onset Date Comments Care Management 12/20/2020 Encounter Details Date Type Department Care Team (Late st Contact Info) Description 12/20/2020 Patient Outreach [facility] - [facility] [address] [place] [address] Bebe Dan, PUMP RUNNER [address] [place] [address] Care Management Social History Tobacco [...] as of this encounter Progress Notes * SCOTT Hill - 12/20/2020 9:42 AM CDT Spoke with pt to follow up on SNAP application and LIHEAP. Pt states she does have an apt with [employer] for assist with utilities and is in the process of completing SNAP application. Denies Need for any other assistance at this time. Vegetable Scullion encouraged pt to call with any other questions or concerns. documented in this encounter Plan of Treatment Upcoming Encounters Date Type Department Care Team (Late st Contact Info) Description 04/14/2024 2:00 PM MARBLE SUPERVISOR Office Visit [facility] Multispecialty Care - [facility] [address] [facility], [address] [place] [phone] Julio Pulido MD 3 [place] [address] documented as of this encounter Goals Goal [...] documented as of this encounter Care Teams Bucket Hooker Relationship Specialty Start Date End Date Sanjeev Webster DO [address] [place] [id number] PCP - General FAMILY PRACTICE 09/25/20 Dianne Johnson, RN [facility] [place] [address] Mower Operator (Ambulatory) REGISTERED NURSE 08/14/20 documented as of this encounter
--- OUTSIDE RECORDS SUMMARY | 2024-03-15 01:09 | XMS_ITS | Encounter Summary ---
Author Organization [facility] Address [facility] [place] [address] [place] [address] Care Team Providers Care Doormaker Name Role Phone Dianne Johnson RN Unavailable [phone] Sanjeev Webster DO Primary Care Provider + Encounter Details Date Type Department Care Team (Latest Contact Info) Description 01/25/2021 8:58 AM WATER FILTRATION TECHNICIAN - 01/25/2021 11:59 PM WATER FILTRATION TECHNICIAN Hospital Encounter [facility] [address] [place] [address] [place] [address] [facility] [address] [place] [address] Discharge Disposition: Home or Self [...] have Coronavirus / COVID-19? No / Unsure 01/11/2021 10:55 AM CDT documented as of this encounter [...] Chronic obstructive pulmonary disease, unspecified COPD type ([facility]) INHALE 2 PUFFS BY MOUTH EVERY 4 [...] gangrene, without long-term current use of insulin ([facility]) Use daily as directed 1 kit 1 [...] congestive heart failure, unspecified heart failure type ([facility]) Take 1 tablet (20 mg total) by mouth daily. 90 tablet 1 1 02/29/20 21 gabapentin 300 MG capsuleIndications: Back pain Take 1 capsule (300 mg total) by mouth 2 (two) times daily. 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, without long-term current use of insulin ([facility]) 1 strip by Other route daily as needed. 100 strip 1 10/16/19 22 HYDROcodone-acetami nophen 10-325 MG tabletIndications:C hronic Pain Take 1 tablet by mouth every 6 (six) hours as needed for Pain. Indications: Chronic Pain 60 tablet 1 02/22/20 21 Lancets MiscIndications:Typ e 2 diabetes mellitus with diabetic peripheral angiopathy without gangrene, without long-term current use of insulin ([facility]) Test daily as directed 100 each 1 [...] polyneuropathy associated with type 2 diabetes mellitus ([facility]),Mild episode of recurrent major depressive disorder ([facility]) Take 1 capsule (150 mg total) by [...] by mouth daily. 90 tablet 1 1 02/07/20 21 documented as of this encounter Plan of Treatment Upcoming Encounters Date Type Department Care Team (Late st Contact Info) Description 04/14/2024 2:00 PM WATER FILTRATION TECHNICIAN Office Visit [facility] Multispecialty Care - [facility] [address] [facility], [address] [place] [address] Julio Pulido MD 3 [place] [address] documented as of this encounter Goals Goal [...] % jelly Topical, Once, 1 dose, On Thu01/25/21 at 0930 Given 01/25/2021 9:12 AM WATER FILTRATION TECHNICIAN 1 Tube documented in this encounter Additional Health Concerns Assessment Noted Time PHQ-9 Depression Total Score: 0 11/23/19 12:03 PM CDT documented as of this encounter Care Teams Doormaker Relationship Specialty Start Date End Date Sanjeev Webster DO [address] [place] [address] PCP - General FAMILY PRACTICE 09/25/20 Dianne Johnson, RN [address] [place] [address] Sweatband Cutting Machine Operator (Ambulatory) REGISTERED NURSE 08/14/20 documented as of this encounter
--- OUTSIDE RECORDS SUMMARY | 2024-03-15 01:09 | XMS_ITS | Encounter Summary ---
Author Organization [facility] Address [address] [place] [address]. [place] [address] [place] [address] Care Team Providers Care Tub Puller Name Role Phone Dianne Johnson RN Unavailable [phone] Sanjeev Webster DO Primary Care Provider + Encounter Details Date Type Department Care Team (Latest Contact Info) Description 01/25/2021 Travel Social History Tobacco Use Types Packs/Day [...] st Contact Info) Description 04/14/2024 2:00 PM FOUNDER CEO & PRESIDENT [facility] Multispecialty Care - [address], [address] [place] [address] Julio Pulido MD 3 [place] [address] documented as of this encounter Goals Goal [...] documented as of this encounter Care Teams Tub Puller Relationship Specialty Start Date End Date Sanjeev Webster DO [address] [place] [address] [phone] PCP - General FAMILY PRACTICE 09/25/20 Dianne Johnson, RN [address] [place] [address] Mold Cleaner (Ambulatory) REGISTERED NURSE 08/14/20 documented as of this encounter
--- OUTSIDE RECORDS SUMMARY | 2024-03-15 01:09 | XMS_ITS | Encounter Summary ---
Author Organization [facility] Address [facility]6 [facility] [place] [address] [place] [address] Care Team Providers Care Vat Packer Name Role Phone Dianne Johnson RN Unavailable [phone] Sanjeev Webster DO Primary Care Provider + Encounter Details Date Type Department Care Team (Late st Contact Info) Description 01/14/2021 Patient Outreach [facility] Medical Group Family & Internal Medicine [address] [address] Dianne Johnson, RN [address] [place] [address] Social History Tobacco Use Types [...] Progress Notes * Dianne Johnson RN - 01/14/2021 12:03 PM CST Images from the original note were not included. Received office visit note from office. Copy faxed to office on 01/14/21 [phone]. See confirmation below for details. ARIN TUTOR documented in this encounter Plan of Treatment Upcoming Encounters Date Type Department Care Team (Late st Contact Info) Description 04/14/2024 2:00 PM MANDARIN TUTOR Office Visit [facility] Mult[facility]pecialty Care - [facility] [address] [facility], [address] [place] [address] Julio Pulido MD 3 [place] [address] documented as of this encounter Goals Goal [...] documented as of this encounter Care Teams Vat Packer Relationship Specialty Start Date End Date Sanjeev Webster DO [address] [place] [address] [phone] PCP - General FAMILY PRACTICE 09/25/20 Dianne Johnson RN [address] [place] [address] Varsity Baseball Coach (Ambulatory) REGISTERED NURSE 08/14/20 documented as of this encounter
--- OUTSIDE RECORDS SUMMARY | 2024-03-15 01:09 | XMS_ITS | Encounter Summary ---
Author Organization [facility] Address [facility] [place] [address] [place] [address] Care Team Providers Care Clin Asst Name Role Phone Casey Johnson RN Unavailable Sanjeev Webster DO Primary Care Provider + Reason for Visit * Reason Onset Date Comments Care Management 01/11/2021 Encounter Details Date Type Department Care Team (Late st Contact Info) Description 01/11/2021 Patient Outreach [facility] Family & Internal Medicine [address] [address] Casey Johnson RN [address] [place] [address] Care Management Social History Tobacco [...] COVID-19? No / Unsure 02/28/2021 1:16 PM DATABASE SPECIALIST documented as of this encounter Progress Notes * Casey Johnson, RN - 01/11/2021 2:43 PM CDT Chronic Care Management: Patient Status: Contacted patient to confirm upcoming appointment with on 01/24/21 at 8:20 am. The person that takes her to the appointments was at her home when CC called. Patient see's wound clinic in [place] and Hematoma is getting a lot smaller per patient. Stated [place] and she continues to wear a black wrist wrap which helps. Patient could not recall the Ortho's name but stated his name starts with a B and his office is located in [place]. CC will obtain OV note for upcoming appointment with . Patient has VAZQUEZ. Stated she does not have a working C-PAP machine anymore. Stated when she moved only part of the C-PAP machine came with her and when she contacted the iubenda company in [place] she was told she would have to pay out of pocket to get another one. Patient did not remember the [employer] company name in [place]. She denies headaches but stated she has daytime sleepiness at times and stated she has dizziness sometimes when she is standing doing dishes or goes to the store. Stated she uses a scooter in the store and that helps. She hasn't been checking her blood sugar and doesn't know if she is getting symptoms from hypoglycemia. She is requesting a new glucose meter [facility] [place]. Message sent to nursing team. Educated patient on hypoglycemia s/s such as sweating, feeling tired, dizziness, feeling shaky, feeling hungry etc. Patient stated she is not checking her B/P since she can't work the B/P cuff on her arm. Informed patient in Catalog from [employer] she can get a wrist B/P monitor that talks if this will help her. Denies any recent falls. Stated the rattan worker will be starting on Thursday and will help her on from 12:30-3:30. Patient stated she has sob with activity once in a while and uses her Pro-air in haler 3 times per week or less. Stated she doesn't have a maintenance inhaler. Patient is requesting a finger pulse oximeter. Informed patient with [employer] insurance she has a certain amount of money towards OTC products she can use this quarterly. Informed a Finger Pulse Oximeter is something she can get from the catalog. Gave patient the phone number to call to take advantage of this free benefit. She stated her [id number] used to order from the catalog for her but since she had a baby she stopped ordering. 01/11/21: Contacted 's office in [place] at [phone] and spoke to Kristina. Requestingoffice visit note. Kristina stated she was seen on Thursday and will get note faxed. 01/11/21: Contacted [facility] [employer] and [employer] in [place]. Patient did not get C-PAP machine from any of these companies in [place]. Plan of Care: Follow up with on 01/24/21 or call before that time if needed. marketing database coordinator will continue to follow up by phone, provide resources when needed, provide education on chronic diseases and assess status of chronic conditions. Patient Goals: Goals Addressed This [...] a lot. 01/11/21: See note for details. ??? Health - patient able to perform [...] dishes her back hurts. Reports Tylenol or [place] helps a little. Message sent to Bebe BHATTI) to find out the status on rattan worker. 10/23/20: Independent with ADL's. 12/10/20: Patient having issues sweeping etc since right hand fx. Stated she will contact [employer] out if another rattan worker will be helping her. Stated she prefers to wait until after she comes back from visiting [place]. 12/27/20: Patient stated she is having issues getting a rattan worker due to company being short staffed. Stated she plans on calling them back today to find out status. Stated her pastors daughter put in application to help her about 1 1/2 months ago but she hasn't received a call. Stated she will call them today. 01/11/21: ash pit worker will start on Thursday and help patient with house cleaning on . Upcoming Visit Appointments: Future Appointments Date Time Provider Department Center 01/24/2021 8:20 AM Sanjeev Webster, DO [facility] Quality care [...] Chronic anticoagulation ??? Coronary artery disease involving yankton coronary artery of yankton heart without angina pectoris ??? Diabetes mellitus [...] mg total) by mouth see administration instructions. Hhia5ki tablet on , fridays and mondays 270 tablet 1 ??? warfarin 6 MG tablet Take 1 tablet (6 mg total) by mouth daily. 90 tablet 1 No current facility-administered medications for this visit. CASEY JOHNSON, RN * Scarlett Guerrero MA - 01/11/2021 2:43 PM CDT Patient does not remember the name of the place she got it from BASE SPECIALIST * Scarlett Guerrero MA - 01/11/2021 2:43 PM CDT No answer no vm 03-06-21 BASE SPECIALIST BASE SPECIALIST * Scarlett Guerrero MA - 01/11/2021 2:43 PM CDT Patient notified and v/u , she will stop in office 03/15/21 for neck measurement BASE SPECIALIST * Sanjeev Webster, - 01/11/2021 2:43 PM CDT OK to send supplies. Will address other issues at OV. BASE SPECIALIST * Sanjeev Webster DO - 01/11/2021 2:43 PM CDT Can we inquire with pt again which supplies she needs for CPAP? She wasn't sure if she would use it, but I believe she would benefit and would like to get thsi process started. BASE SPECIALIST Jose Webster DO - 01/11/2021 2:43 PM CDT If pt isn't sure and hasn't had a sleep study in the last 1-2 years, let's do another sleep study. I don't see one scanned into media. There is another task that needs addressed. BASE SPECIALIST * Autumn Khan MA - 01/11/2021 2:43 PM CDT Voicemail is full and unable to leave messages at this time. BASE SPECIALIST documented in this encounter Plan of Treatment Upcoming Encounters Date Type Department Care Team (Late st Contact Info) Description 04/14/2024 2:00 PM DATABASE SPECIALIST Office Visit [facility] Mult[facility]pecialty Care - [facility] 3 [facility], [address] [place] [address] Julio Pulido MD [address] [place] [address] documented as of this encounter Goals Goal [...] documented as of this encounter Care Teams Clin Asst Relationship Specialty Start Date End Date Sanjeev Webster DO [address] [place] [address] PCP - General FAMILY PRACTICE 09/25/20 Casey Johnson, RN [address] [place], [place] [address] Heating Technician (Ambulatory) REGISTERED NURSE 08/14/20 documented as of this encounter
--- OUTSIDE RECORDS SUMMARY | 2024-03-15 01:09 | XMS_ITS | Encounter Summary ---
Author Organization [facility] Address [address] [place] [address]. [place] [address] [place] [address] Care Team Providers Care Mixer Pigment Name Role Phone Dinane Johnson RN Unavailable [phone] Sanjeev Webster DO Primary Care Provider + Encounter Details Date Type Department Care Team (Latest Contact Info) Description 01/11/2021 Travel Social History Tobacco Use Types Packs/Day [...] Contact Info) Description 04/14/2024 2:00 PM PRODUCT DISTRIBUTION SPECIALIST Office Visit [facility] Medical Group Multispecialty Care - [address], [address] [place] [address] Julio Pulido MD 3 [place] [address] documented as of this encounter Goals Goal [...] as of this encounter Care Teams Mixer Pigment Relationship Specialty Start Date End Date Sanjeev Webster DO [address] [place] [address] [id number] PCP - General FAMILY PRACTICE 09/25/20 Dianne Johnson, RN [address] [place] [address] Reel Operator (Ambulatory) REGISTERED NURSE 08/14/20 documented as of this encounter
--- OUTSIDE RECORDS SUMMARY | 2024-03-15 01:09 | XMS_ITS | Encounter Summary ---
Author Organization [facility] Address [facility]6 [facility] [place] [address] [place] [address] Care Team Providers Care Shoe Coverer Name Role Phone Dianne Johnson RN Unavailable [phone] Sanjeve Webster DO Primary Care Provider + Reason for Visit * Reason Onset Date Comments Medication Request 12/24/2020 Encounter Details Date Type Department Care Team (Late st Contact Info) Description 12/24/2020 Telephone [facility] Medical Group Family & Internal Medicine [address] [address] Sanjeev Webster DO [facility]1 [place] [address] Medication Request Social History Tobacco [...] Progress Notes * Trixie Jose MA - 12/28/2020 3:15 PM CDT This was filled yesterday. tn * Adrianne Elizabeth - 12/27/2020 9:29 AM CDT Patient called back in, it is Ferosul that she is needing. I sent in a refill in a sep task. * Danielle Wilson - 12/24/2020 10:34 AM CDT Patient called in asking for a refill of her laxative medication. She stated that it is spelled ferous. She could not tell the MG. She is asking for a 90 day supply and that she is out of this medication and needs it sent in today. documented in this encounter Plan of Treatment Upcoming Encounters Date Type Department Care Team (Late st Contact Info) Description 04/14/2024 2:00 PM DSP ENGINEER Office Visit [facility] Medical Group Multispecialty Care - [facility] 3 [facility], [address] [place] [address] Julio Puliod MD 3 [place] [address] documented as of this encounter Goals Goal [...] as of this encounter Care Teams Shoe Coverer Relationship Specialty Start Date End Date Sanjeev Webster DO [address] [place] [address] [id number] PCP - General FAMILY PRACTICE 09/25/20 Dianne Johnson, RN [address] [place] [address] Front End Driver (Ambulatory) REGISTERED NURSE 08/14/20 documented as of this encounter
--- OUTSIDE RECORDS SUMMARY | 2024-03-15 01:09 | XMS_ITS | Encounter Summary ---
Author Organization [facility] Address [address] [place] [address]. [place] [address] [place] [address] Care Team Providers Care Commercial Real Estate Agent Name Role Phone Dianne Johnson RN Unavailable [phone] Sanjeev Webster DO Primary Care Provider + Encounter Details Date Type Department Care Team (Latest Contact Info) Description 12/21/2020 Travel Social History Tobacco Use Types Packs/Day [...] st Contact Info) Description 04/14/2024 2:00 PM FORGING DIE SINKER Office Visit [facility] Medical Group Multispecialty Care - [address], [address] [place] [address] Julio Pulido MD 3 [place] [address] documented as of this encounter Goals Goal [...] as of this encounter Care Teams Commercial Real Estate Agent Relationship Specialty Start Date End Date Sanjeev Webster DO [address] [place] [address] [phone] PCP - General FAMILY PRACTICE 09/25/20 Dianne Johnson, RN [address] [place] [address] Clean Rice Broker (Ambulatory) REGISTERED NURSE 08/14/20 documented as of this encounter
--- OUTSIDE RECORDS SUMMARY | 2024-03-15 01:09 | XMS_ITS | Encounter Summary ---
Author Organization [facility] Address [facility] [place] [address] [place] [address] Care Team Providers Care Articulation Officer Name Role Phone Dianne Johnson RN Unavailable [phone] Sanjeev Webster DO Primary Care Provider + Encounter Details Date Type Department Care Team (Latest Contact Info) Description 12/28/2020 10:45 AM CDT - 12/28/2020 11:59 PM CDT Hospital Encounter [facility] [address] [place], [place] [id number] [place] [address] [facility] [address] [place] [address] Discharge Disposition: Home or Self [...] Chronic obstructive pulmonary disease, unspecified COPD type ([facility]) INHALE 2 PUFFS BY MOUTH EVERY [...] congestive heart failure, unspecified heart failure type ([facility]) Take 1 tablet (20 mg total) [...] st Contact Info) Description 04/14/2024 2:00 PM NURSE TRANSPLANT Office Visit [facility] Medical Group Multispecialty Care - [address], [address] [place] [address] Julio Pulido MD [address] [place] [address] documented as of this encounter Goals Goal [...] % jelly Topical, Once, 1 dose, On Thu12/28/20 at 1145 Given 12/28/2020 11:17 AM CDT 1 Tube documented in this encounter Additional Health Concerns Assessment Noted Time PHQ-9 Depression Total Score: 0 11/23/19 12:03 PM CDT documented as of this encounter Care Teams Articulation Officer Relationship Specialty Start Date End Date Sanjeev Webster DO [address] [place] [address] PCP - General FAMILY PRACTICE 09/25/20 Dianne Johnson, RN [address] [place] [address] Television News Reporter (Ambulatory) REGISTERED NURSE 08/14/20 documented as of this encounter
--- OUTSIDE RECORDS SUMMARY | 2024-03-15 01:09 | XMS_ITS | Encounter Summary ---
Author Organization [facility] Address [facility] [place] [address] [place] [address] Care Team Providers Care Spinning Lathe Operator Hydraulic Name Role Phone Dianne Johnson RN Unavailable [phone] Sanjeev Webster DO Primary Care Provider + Reason for Visit * Reason Onset Date Comments Advise 01/15/2021 Encounter Details Date Type Department Care Team (Late st Contact Info) Description 01/15/[address] [facility] Family & Internal Medicine [address] [address] Sanjeev Webster DO [facility]1 [place] [address] Advise Social History Tobacco Use [...] Progress Notes * Scarlett Guerrero MA - 01/15/2021 4:17 PM CST Orders sent GHT DELIVERY DRIVER * Scarlett Guerrero MA - 01/15/2021 4:14 PM CST OK to send supplies. Will address other issues at OV. ----- Message ----- From: Scarlett Guerrero MA Sent: 01/14/2021 9:37 AM FREIGHT DELIVERY DRIVER To: Sanjeev Webster, ----- Message from Scarlett Guerrero MA sent at 01/14/2021 9:37 AM FREIGHT DELIVERY DRIVER ----- ----- Message from Dianne Johnson RN sent at 01/11/2021 3:59 PM CDT ----- Please address the followin. Patient requesting blood sugar monitor and supplies sent to [facility]. 2. Patient has VAZQUEZ. Stated she hasn't been using a C-PAP for 3 to 4 years. Stated half of the C-PAPmachine/equipment lost when she moved. Stated place she received it from in [place] told her a while back she would have to pay for a new one and doesn't have the funds. Contacted [facility], [facility] and [facility] in [place]. She did not get C-PAP from any of these companies. Please have address at upcoming appointment on 01/24/21. 3. FYI: Patient c/o dizziness sometimes when she stands and washes dishes or when she is at the grocery store. This has been going on for some time. Encouraged patient to move positions slowly to prevent falling. No recent falls reported. Patient not checking B/P or BS at this time. B/P cuff on arm she is unable to use it. Discussed option of talking wrist B/P cuff in [employer] if this would be easier for her. 4. Patient was seen by on Thursday. Called to get office visit note. Will fax to office when received. Thank you. GHT DELIVERY DRIVER documented in this encounter Plan of Treatment Upcoming Encounters Date Type Department Care Team (Late st Contact Info) Description 04/14/2024 2:00 PM FREIGHT DELIVERY DRIVER Office Visit [facility] Multispecialty Care - [facility] [address] [facility], [address] [place] [address] Julio Pulido MD 3 [place] [address] documented as of this encounter Goals Goal [...] gangrene, without long-term current use of insulin ([facility])- Primary documented in this encounter Additional Health Concerns Assessment Noted Time PHQ-9 Depression Total Score: 0 11/23/19 21 12:03 PM CDT documented as of this encounter Care Teams Spinning Lathe Operator Hydraulic Relationship Specialty Start Date End Date Sanjeev Webster DO [address] [place] [address] PCP - General FAMILY PRACTICE 09/25/20 Dianne Johnson, RN [address] [place] [address] Animal Chiropractor (Ambulatory) REGISTERED NURSE 08/14/20 documented as of this encounter
--- OUTSIDE RECORDS SUMMARY | 2024-03-15 01:09 | XMS_ITS | Encounter Summary ---
Author Organization [facility] Address [facility]6 [facility] [place] [address] [place] [address] Care Team Providers Care Pantry Worker Name Role Phone Dianne Johnson RN Unavailable [phone] Sanjeev Webster DO Primary Care Provider + Reason for Visit * Reason Onset Date Comments Error 12/13/2020 Encounter Details Date Type Department Care Team (Late st Contact Info) Description 12/13/2020 Telephone [facility] Family & Internal Medicine [address] [address] Sanjeev Webster DO [facility]1 [place] [address] Error Social History Tobacco Use [...] Progress Notes * Sanjeev Webster DO - 12/13/2020 2:37 PM CDT Entered in error documented in this encounter Plan of Treatment Upcoming Encounters Date Type Department Care Team (Late st Contact Info) Description 04/14/2024 2:00 PM QA AUTOMATION DEVELOPER Office Visit [facility] Multispecialty Care - [facility] 3 [facility], [address] [place] [id number] Julio Pulido MD 3 [place] [address] documented as of this encounter Goals Goal [...] documented as of this encounter Care Teams Pantry Worker Relationship Specialty Start Date End Date Sanjeev Webster DO [address] [place] [address] PCP - General FAMILY PRACTICE 09/25/20 Dianne Johnson, RN [address] [place] [address] Services Manager (Ambulatory) REGISTERED NURSE 08/14/20 documented as of this encounter
--- OUTSIDE RECORDS SUMMARY | 2024-03-15 01:09 | XMS_ITS | Encounter Summary ---
Author Organization [facility] Address [facility]6 [facility] [place] [address] [place] [address] Care Team Providers Care Stitch Separator Name Role Phone Dianne Johnson RN Unavailable [phone] Sanjeev Webster DO Primary Care Provider + Reason for Visit * Reason Onset Date Comments Care Management 12/27/2020 Encounter Details Date Type Department Care Team (Late st Contact Info) Description 12/27/2020 Telephone [facility] Family & Internal Medicine [facility] [address] [place] [address] Sanjeev Webster DO [address] [place] [address] Care Management Social History Tobacco Use [...] Progress Notes * Dianne Johnson RN - 12/27/2020 1:47 PM CDT Patient notified and stated she will ask someone else in her family to help her complete the paper work. * Dianne Johnson RN - 12/27/2020 1:47 PM CDT ----- Message from SCOTT Hill sent at 12/27/2020 12:24 PM CDT ----- My suggestion would be to go up to the office and they can have someone assist her. She is not familiar with a computer , otherwise she could do it online ----- Message ----- From: Dianne Johnson RN Sent: 12/27/2020 11:47 AM CDT To: SCOTT Hill Patient fx her right wrist and having issues completing paper work for food stamps. Stated her [id number] told her to use her left hand which she can't write very well. Do you have any recommendations for her? Please call her. Thank you. documented in this encounter Plan of Treatment Upcoming Encounters Date Type Department Care Team (Late st Contact Info) Description 04/14/2024 2:00 PM PRODUCTION CELL LEADER Office Visit [facility] Multispecialty Care - [facility] 3 [facility], [address] [place] [phone] Julio Pulido MD 3 [place] [address] documented as of this encounter Goals Goal [...] documented as of this encounter Care Teams Stitch Separator Relationship Specialty Start Date End Date Sanjeev Webster DO [address] [place] [address] PCP - General FAMILY PRACTICE 09/25/20 Dianne Johnson, RN [facility] [place] [address] Balance Engineer (Ambulatory) REGISTERED NURSE 08/14/20 documented as of this encounter
--- OUTSIDE RECORDS SUMMARY | 2024-03-15 01:09 | XMS_ITS | Encounter Summary ---
Author Organization [facility] Address [facility] [place] [address] [place] [address] Care Team Providers Care Meter Reader Chief Name Role Phone Dianne Johnson RN Unavailable [phone] Sanjeev Webster DO Primary Care Provider + Reason for Visit * Reason Onset Date Comments Callback 02/06/2021 Encounter Details Date Type Department Care Team (Late st Contact Info) Description 02/06/2021 Telephone [facility] Family & Internal Medicine [address] [address] Sanjeev Webster DO [facility] [place] [address] Callback Social History Tobacco Use Types Packs/Day [...] Progress Notes * Natalee Brown RN - 02/07/2021 10:49 AM CST Called and and followed up with patient. She said she used OTC cough syrup, nasal spray and her inhaler last night. Patient stated I am feeling much better today . Advised patient if she starts to have increased SOB or fever again, go to ED right away. Patient verbalized understanding. Also, to make follow up with PCP. Patient said she will call back to make follow up appointment. Opportunity given for all questions to be answered, no further needs voiced at this time. LL-02/07/21 MOTIVE PAINTER * Sanjeev Webster DO - 02/07/2021 10:15 AM CST I don't see ER records from [facility]; can we reach out to ensure pt did go and obtain ER records accordingly. MOTIVE PAINTER * Natalee Brown RN - 02/06/2021 3:05 PM CST Patient called in stating she is have cough, sinus pressure, weakness and SOB. Patient was very weak sounding over the phone. Advise patient to go to urgent care/ ED for further evaluation. Patient was agreeable and stated she would have her daughter in law or sister take her to the ED. Opportunitygiven for all questions to be answered, no further needs voiced at this time. LL-02/06/21 MOTIVE PAINTER * Danielle Wilson - 02/06/2021 10:48 AM CST Patient called in asking to speak to a clinical associate team physician, nobody was free. I advised the patientwe would call her back. MOTIVE PAINTER documented in this encounter Plan of Treatment Upcoming Encounters Date Type Department Care Team (Late st Contact Info) Description 04/14/2024 2:00 PM AUTOMOTIVE PAINTER Office Visit [facility] Multispecialty Care - [facility] 3 [facility], [address] [place] [address] Julio Pulido MD 3 [place] [address] documented as of this encounter Goals Goal [...] documented as of this encounter Care Teams Meter Reader Chief Relationship Specialty Start Date End Date Sanjeev Webster DO [address] [place] [address] PCP - General FAMILY PRACTICE 09/25/20 Dianne Johnson, RN [address] [place] [address] Food Vendor (Ambulatory) REGISTERED NURSE 08/14/20 documented as of this encounter
--- OUTSIDE RECORDS SUMMARY | 2024-03-15 01:09 | XMS_ITS | Encounter Summary ---
Author Organization [facility] Address [facility]6 [facility] [place] [address] [place] [address] Care Team Providers Care Option Trader Name Role Phone Dianne Johnson RN Unavailable [phone] Sanjeev Webster DO Primary Care Provider + Encounter Details Date Type Department Care Team (Latest Contact Info) Description 01/11/2021 10:57 AM CDT - 01/11/2021 11:59 PM CDT Hospital Encounter [facility] [address] [place] [address] [place] [address] [facility] [address] [place] [address] Discharge Disposition: Home or Self [...] obstructive pulmonary disease, unspecified COPD type ([facility]) INHALE 2 PUFFS BY MOUTH [...] congestive heart failure, unspecified heart failure type ([facility]) Take 1 tablet (20 mg [...] st Contact Info) Description 04/14/2024 2:00 PM STEWARD/STEWARDESS THIRD Office Visit [facility] Multispecialty Care - [address], [address] [place] [address] Julio Pulido MD [address] [place] [address] documented as of this encounter Goals Goal [...] % jelly Topical, Once, 1 dose, On Thu01/11/21 at 1200 Given 01/11/2021 11:32 AM CDT 1 Tube documented in this encounter Additional Health Concerns Assessment Noted Time PHQ-9 Depression Total Score: 0 11/23/19 12:03 PM CDT documented as of this encounter Care Teams Option Trader Relationship Specialty Start Date End Date Sanjeev Webster DO [address] [place] [address] PCP - General FAMILY PRACTICE 09/25/20 Dianne Johnson, RN [address] [place] [address] Examination Scorer (Ambulatory) REGISTERED NURSE 08/14/20 documented as of this encounter
--- OUTSIDE RECORDS SUMMARY | 2024-03-15 01:09 | XMS_ITS | Encounter Summary ---
Author Organization [facility] Address [facility]6 [facility] [place] [address] [place] [address] Care Team Providers Care Mirror Silverer Name Role Phone Dianne Johnson RN Unavailable [phone] Sanjeev Webster DO Primary Care Provider + Encounter Details Date Type Department Care Team (Latest Contact Info) Description 01/07/2021 Scan HEALTH INFO SRVCS Scanned, Documents Social [...] st Contact Info) Description 04/14/2024 2:00 PM PROBATE JUDGE Office Visit [facility] Multispecialty Care - [address], [address] [place] [address] Julio Pulido MD 3 [place] [address] documented as of this encounter Goals Goal [...] documented as of this encounter Care Teams Mirror Silverer Relationship Specialty Start Date End Date Sanjeev Webster DO [address] [place] [address] PCP - General FAMILY PRACTICE 09/25/20 Dianne Johnson, RN [address] [place] [address] Clay Machine Operator (Ambulatory) REGISTERED NURSE 08/14/20 documented as of this encounter
--- OUTSIDE RECORDS SUMMARY | 2024-03-15 01:10 | XMS_ITS | Encounter Summary ---
Author Organization [facility] Address [facility] [place] [address] [place] [address] Care Team Providers Care Densitometrist Name Role Phone Dianne Johnson RN Unavailable [phone] Sanjeev Webster DO Primary Care Provider + Reason for Visit * Reason Onset Date Comments Care Management 12/12/2020 Encounter Details Date Type Department Care Team (Late st Contact Info) Description 12/12/2020 Patient Outreach [facility] - [facility] [address] [place] [address] Bebe Dan, ASP NET MVC DEVELOPER [address] [place] [address] Care Management Social History Tobacco [...] have Coronavirus / COVID-19? No / Unsure 12/07/2020 10:35 AM CDT documented as of this encounter Progress Notes * SCOTT Hill - 12/12/2020 10:41 AM CDT Lacquer Polisher spoke with pt in regards to Utility bills. Lacquer Polisher provided pt with information for LIHEAP and pt will call to make an appointment. Pt also asked flex o writer operator questions in regards to SNAP benefits . Lacquer Polisher has placed application in the mail for pt. Pt voiced understanding of above information and thanked flex o writer operator. Lacquer Polisher will follow up next week. documented in this encounter Plan of Treatment Upcoming Encounters Date Type Department Care Team (Late st Contact Info) Description 04/14/2024 2:00 PM PARACHUTE MANUFACTURING SUPERVISOR Office Visit [facility] Medical [facility] Multispecialty Care - [facility] 3 [facility], [address] [place] [address] Julio Pulido MD 3 [place] [address] documented as of this encounter Goals Goal [...] documented as of this encounter Care Teams Densitometrist Relationship Specialty Start Date End Date Sanjeev Webster DO [address] [place] [address] PCP - General FAMILY PRACTICE 09/25/20 Dianne Johnson, RN [address] [place] [address] [place] [address] Seasonal Greenery Bundler (Ambulatory) REGISTERED NURSE 08/14/20 documented as of this encounter
--- OUTSIDE RECORDS SUMMARY | 2024-03-15 01:10 | XMS_ITS | Encounter Summary ---
Author Organization [facility] Address [facility]6 [facility] [place] [address] [place] [address] Care Team Providers Care Qc Tech Name Role Phone Dianne Johnson RN Unavailable [phone] Sanjeev Webster DO Primary Care Provider + Reason for Visit * Consultation (Urgent) - Closed Specialty Diagnoses / Procedures Referred By Ian t Referred To Contact WOUND CARE / [facility] Wound Care Diagnoses Skin tear of elbow without complication Sanjeev Webster DO [address] [place] [address] Phone: tel: fax: Kev Torres MD Phone: tel: fax: Referral ID Status Reason Start Date Expiration Date V isits Requested Visits Authorized [id number] Closed Specialty Services 11/28/2020 11/27/2021 12 12 Encounter Details Date Type Department Care Team (Latest Contact Info) Description 11/30/2020 9:49 AM CDT - 11/30/2020 11:59 PM CDT Hospital Encounter [facility] [address] [place] [address] [place] [address] [facility] [address] [place] [address] Discharge Disposition: Home or Self [...] have Coronavirus / COVID-19? No / Unsure 11/30/2020 9:45 AM CDT documented as of this encounter [...] obstructive pulmonary disease, unspecified COPD type ([facility]) INHALE 2 PUFFS BY MOUTH EVERY [...] directed 30 mL 1 1 10/16/19 22 cephALEXin 500 MG capsuleIndications: Cellulitis of left upper extremity Take 1 capsule (500 mg total) by mouth every 6 (six) hours for 10 days. 40 capsule 1 12/09/19 21 CONTOUR NEXT TEST test strip USE 1 STRIP TO CHECK GLUCOSE THREE TIMES DAILY 0 10/16/19 22 FEROSUL 325 (65 Fe) MG tabletIndications:I elida deficiency anemia, unspecified iron deficiency anemia type Take 1 tablet (325 mg total) by mouth daily. 90 tablet 1 0 12/29/19 21 furosemide 20 MG tabletIndications:H ypertensive heart disease with congestive heart failure, unspecified heart failure type ([facility] HHS/HCC) Take 1 tablet (20 mg [...] Pain. Indications: Chronic Pain 60 tablet 1 12/14/19 21 lidocaine 5 %Indications:Neck pain Apply pain [...] polyneuropathy associated with type 2 diabetes mellitus ([facility] HHS/HCC),Mild episode of recurrent major depressive disorder ([facility]) Take 1 capsule (150 mg total) by [...] st Contact Info) Description 04/14/2024 2:00 PM ART INSTRUCTOR Office Visit [facility] Group Multispecialty Care - [facility] 3 [facility], [address] [place] [address] Julio Pulido MD 3 [place] [address] documented as of this encounter Goals Goal Patient Goal Type Associated Problems Recent Progress Patient-Stated? Author Health - patient able to perform ADLs independently General On track(2023 9:49 AM CDT) No Dianne Johnson, RN Note: 12/17/23: Patient stated she is independent with ASL's. documented as of this encounter Procedures Procedure Name Priority Date/Time Associated Diagnosis Comments CULTURE, TISSUE W/GRAM STAIN Routine 11/30/2020 10:55 AM CDT Wound drainage documented in this encounter Results * CULTURE, TISSUE W/GRAM STAIN (11/30/2020 10:55 AM CDT) SPEC DESCRIPTION ELBOW,LEFT 11/30/2020 11:45 AM CDT [facility] SPECIAL REQUESTS NO SPECIAL REQUEST 11/30/2020 11:45 AM CDT [facility] GRAM STAIN RESULT FEW WHITE BLOOD CELLS SEEN 12/01/2020 1:26 PM CDT [facility] GRAM STAIN RESULT MODERATE RED BLOOD CELLS SEEN 12/01/2020 1:26 PM CDT [facility] GRAM STAIN RESULT NO ORGANISMS SEEN 12/01/2020 1:26 PM CDT [facility] CULTURE RESULT NO GROWTH 3 DAYS 12/03/2020 9:43 AM CDT [facility] CULTURE RESULT NOTE: WOUND AND TISSUE CULTURES ARE ROUTINELY SCREENED FOR AEROBIC ORGANISMS ONLY. 12/03/2020 9:43 AM CDT [facility] LEFT ELBOW REGION STRUCTURE / Unknown 11/30/2020 10:55 AM CDT 11/30/2020 12:47 PM CDT Kev Torres MD MICROBIOLOGY - GENERAL ORDERABLE S Final Result Performing Organization Address City/State/[facility] Co de Phone Number [facility] [address] [place] [address], [place] [phone] [facility] [address] [place] [address], [place] [phone] documented in this encounter Visit Diagnoses Diagnosis Wound drainage- Primary Open wound(s) (multiple) of unspecified site(s), without mention of complication documented in this encounter Administered Medications Inactive Administered Medications - up to 3 most recent administrations Medication Order MAR Action Action Date Dose Rate Site lidocaine (XYLOCAINE) 2 % jelly Topical, Once, 1 dose, On Thu11/30/20 at 1100 Given 11/30/2020 10:36 AM CDT 1 Tube documented in this encounter Additional Health Concerns Assessment Noted Time PHQ-9 Depression Total Score: 0 11/23/19 12:03 PM CDT documented as of this encounter Care Teams Qc Tech Relationship Specialty Start Date End Date Sanjeev Webster DO [address] [place] [address] PCP - General FAMILY PRACTICE 09/25/20 Dianne Johnson RN [address] [place] [address] Campus Monitor (Ambulatory) REGISTERED NURSE 08/14/20 documented as of this encounter
--- OUTSIDE RECORDS SUMMARY | 2024-03-15 01:10 | XMS_ITS | Encounter Summary ---
Author Organization [facility] Address Critical access hospital6 [facility] [place] [address] [place] [address] Care Team Providers Care Slice Plug Cutter Operator Name Role Phone Dianne Johnson RN Unavailable [phone] Sanjeev Webster DO Primary Care Provider + Encounter Details Date Type Department Care Team (Late Contact Info) Description 10/22/2020 1:20 PM CDT Laboratory Only [facility] Family & Internal Medicine [address] [address] Social History Tobacco Use Types Packs/Day Years Used Date Smoking Tobacco: Never Smokeless Tobacco: Never Comments:non smoker Alcohol Use Standard Drinks/Week Comments Not Currently 0 (1 standard drink = 0.6 oz pur e alcohol) PHQ-2 Answer Date Recorded PHQ-2 Score - If the patient scores above 3, please move on to questions 3-9 0 09/18/2020 Comments No Sex and Gender Information Value Date Recorded Sex Assigned at Not on file Legal Sex Female 11:18 AM CDT Gender Identity Not on file Sexual Orientation Not on file COVID-19 Exposure Response Date Recorded In the last month, have you been in contact with someone who was confirmed or suspected to have Coronavirus / COVID-19? No / Unsure 10/22/2020 1:03 PM CDT documented as of this encounter Plan of Treatment Upcoming Encounters Date Type Department Care Team (Late Contact Info) Description 04/14/2024 2:00 PM HOSPICE SUPERINTENDENT Office Visit [facility] Mult[facility]pecialty Care - [facility] 3 [facility], [address] [place] [phone] Julio Pulido MD 3 [place] [address] documented as of this encounter Goals Goal Patient Goal Type Associated Problems Recent Progress Patient-Stated? Author Health - patient able to perform ADLs independently General On track(2023 9:49 AM CDT) Dianne Corona RN Note: 12/17/23: Patient stated she is independent with ASL's. documented as of this encounter Procedures Procedure Name Priority Date/Time Associated Diagnosis Comments BASIC METABOLIC PANEL Routine 10/22/2020 1:05 PM CDT Hyperpotassemia documented in this encounter Results * (ABNORMAL) BASIC METABOLIC PANEL (10/22/2020 1:05 PM CDT) SODIUM S/P/B 140 136 - 145 MMOL/L 10/23/2020 5:00 AM CDT [facility] POTASSIUM S/P/B 5.0 3.5 - 5.1 MMOL/L 10/23/2020 5:00 AM CDT -[facility] CHLORIDE S/P/B 106 98 - 107 MMOL/L 10/23/2020 5:00 AM CDT [facility] CO2 32.6(H) 21 - 32 MMOL/L 10/23/2020 5:00 AM CDT [facility] GLUCOSE 151(H) 70 - 99 MG/DL 10/23/2020 5:00 AM CDT [facility] BUN 22 6 - 24 MG/DL 10/23/2020 5:00 AM CDT [facility] CREATININE S/P/B 1.27(H) 0.55 - 1.02 MG/DL 10/23/2020 5:00 AM CDT [facility] CALCIUM S/P/B 9.8 8.4 - 10.5 MG/DL 10/23/2020 5:00 AM CDT [facility] ANION GAP 1.4(L) 5 - 15 MMOL/L 10/23/2020 5:00 AM CDT [facility] Comment:REFERENCE RANGE NOT ESTABLISHED OSMOLALITY (CALC) 296 MOSM/KG 10/23/2020 5:00 AM CDT [facility] Comment:REFERENCE RANGE NOT ESTABLISHED EGFR NON-AFR. AMER. 41(L) >90 ML/MIN/1 .73 M2 10/23/2020 5:00 AM T [facility] EGFR AFR. AMER. 47(L) >90 ML/MIN/1 .73 M2 10/23/2020 5:00 AM T [facility] GFR NOTES THE ESTIMATED GFR IS CALCULATED USING THE 2009 CKD-EPI EQUATION. THE FOLLOWING CATEGORIES FOR GRADING RENAL FUNCTION ARE RECOMMENDED BY THE INTERNATIONAL SOCIETY OF NEPHROLOGY (KDIGO 2012 CLINICAL PRACTICE GUIDELINE). 10/23/2020 5:00 AM CDT [facility] Comment: G1,NORMAL OR HIGH: >89 ml/min/1.73 m2 G2,MILDLY DECREASED: 60-89 ml/min/1.73 m2 G3A,MILDLY TO MODERATELY DECREASED: 45-59 ml/min/1.73 m2 G3B,MODERATELY TO SEVERELY DECREASED: 30-44 ml/min/1.73 m2 G4,SEVERELY DECREASED: 15-29 ml/min/1.73 m2 G5,KIDNEY FAILURE: <15 ml/min/1.73 m2 10/22/2020 1:05 PM CDT us Sanjeev Webster DO LABORATORY Final Re sult [facility] [address] [place] [address], documented in this encounter Visit Diagnoses Diagnosis Hyperpotassemia- Primary documented in this encounter Additional Health Concerns Assessment Noted Time PHQ-9 Depression Total Score: 5 09/19/19 21 2:18 PM CDT documented as of this encounter Care Teams Slice Plug Cutter Operator Relationship Specialty Start Date End Date Sanjeev Webster DO [address] [place] [address] PCP - General FAMILY PRACTICE 09/25/20 Dianne Johnson, RN [address] [place] [address] Perinatal Breastfeeding Assistant (Ambulatory) REGISTERED NURSE 08/14/20 documented as of this encounter
--- OUTSIDE RECORDS SUMMARY | 2024-03-15 01:10 | XMS_ITS | Encounter Summary ---
Author Organization [facility] Address Pending sale to [facility] [place] [address] [place] [address] Care Team Providers Care Machine Filler Shredder Name Role Phone Dianne Johnson RN Unavailable [phone] Sanjeev Webster DO Primary Care Provider + Reason for Visit * Reason Onset Date Comments Medication 09/27/2020 Encounter Details Date Type Department Care Team (Late st Contact Info) Description 09/27/2020 Telephone [facility] Family & Internal Medicine [address] [address] Sanjeev Webster DO [facility] [place] [address] Medication Social History Tobacco Use [...] have Coronavirus / COVID-19? No / Unsure 09/25/2020 1:23 PM CDT documented as of this encounter Progress Notes * Scarlett Guerrero MA - 10/01/2020 4:21 PM CDT [facility] notified * Sanjeev Webster DO - 10/01/2020 4:08 PM CDT Let's have them bring in all of her medicine for the next OV, as I'd like to check to see what she's actually taking to ensure it is accurate. * Trixie Jose MA - 10/01/2020 1:28 PM CDT Granddaughter states that she does still take the hydrocodone prn. 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 She will be at upcoming appt with Radha. * Sanjeev Webster DO - 09/27/2020 4:12 PM CDT We did not specifically stop it; per history, she was already weaning off the medication. Exact details of how much she had or were taken were conflicting with available clinical data, so I did not specifically stop it. She is on gabapentin for pain from what I understand, but pt was not sure exactly what medications, dosages, or frequency she was taking for any of her medications. * Amina De La Cruz - 09/27/2020 3:47 PM CDT Patient's ricardo calling in asking why we d/c her norco. documented in this encounter Plan of Treatment Upcoming Encounters Date Type Department Care Team (Late st Contact Info) Description 04/14/2024 2:00 PM ASSOCIATE ACCOUNT DIRECTOR Office Visit [facility] Multispecialty Care - [facility] 3 [facility], [address] [place] [address] Julio Pulido MD 3 [place] [address] documented as of this encounter Goals Goal [...] documented as of this encounter Care Teams Machine Filler Shredder Relationship Specialty Start Date End Date Sanjeev Webster DO [address] [place] [address] PCP - General FAMILY PRACTICE 09/25/20 Dianne Johnson, RN [address] [place] [address] Chute Loader (Ambulatory) REGISTERED NURSE 08/14/20 documented as of this encounter
--- OUTSIDE RECORDS SUMMARY | 2024-03-15 01:10 | XMS_ITS | Encounter Summary ---
Author Organization [facility] Address [facility] [facility] [place] [address] [place] [address] Care Team Providers Care Director Of Intelligence Name Role Phone Dianne Johnson RN Unavailable [phone] Sanjeev Webster DO Primary Care Provider + Reason for Visit * Reason Onset Date Comments Follow Up Call 10/24/2020 Encounter Details Date Type Department Care Team (Late st Contact Info) Description 10/24/2020 Telephone [facility] Family & Internal Medicine [address] [address] Sanjeev Webster DO [address] [place] [address] Follow Up Call Social History Tobacco [...] Progress Notes * Trixie Jose MA - 10/24/2020 4:05 PM CDT Patient contacted and new rx sent tn * Sanjeev Webster DO - 10/24/2020 4:01 PM CDT Increase lisinopril to 40 mg today and call back with BP results on Thursday. Any concerning symptomsshe should go to ER, like we discussed last week. * Dianne Johnson RN - 10/24/2020 2:03 PM CDT Trinidad (Granddaughter on HIPPA) state patient called her last night to report her B/P readings with a wrist B/P monitor. B/P was 190/80. She rechecked her B/P and it was 200/88. Trinidad stated patient was supposed to call 's office about her B/P readings this am. No record of patient calling. Informed Trinidad that CC will send a message to 's nursing team. documented in this encounter Plan of Treatment Upcoming Encounters Date Type Department Care Team (Late st Contact Info) Description 04/14/2024 2:00 PM EDUCATIONAL PARAPROFESSIONAL Office Visit [facility] Multispecialty Care - [facility] 3 [facility], [address] [place] [phone] Julio Pulido MD 3 [place] [address] documented as of this encounter Goals Goal Patient Goal Type Associated Problems Recent Progress Patient-Stated? Author Health - patient able to perform ADLs independently General On track(2023 9:49 AM CDT) No Dianne Johnson RN Note: 12/17/23: Patient stated she is independent with ASL's. documented as of this encounter Visit Diagnoses Diagnosis Hyperpotassemia- Primary Hypertensive urgency Unspecified essential hypertension documented in this encounter Additional Health Concerns Assessment Noted Time PHQ-9 Depression Total Score: 5 09/19/19 21 2:18 PM CDT documented as of this encounter Care Teams Director Of Intelligence Relationship Specialty Start Date End Date Sanjeev Webster DO [address] [place] [address] PCP - General FAMILY PRACTICE 09/25/20 Dianne Johnson, RN [facility]1 [place] [address] Hand Hide Stretcher (Ambulatory) REGISTERED NURSE 08/14/20 documented as of this encounter
--- OUTSIDE RECORDS SUMMARY | 2024-03-15 01:10 | XMS_ITS | Encounter Summary ---
Author Organization [facility] Address [address] [place] [address]. [place] [address] [place] [address] Care Team Providers Care Non Destructive Testing Technician Name Role Phone Dianne Johnson RN Unavailable [phone] Sanjeev Webster DO Primary Care Provider + Reason for Visit * Reason Comments Image (SCAN) Encounter Details Date Type Department Care Team (Latest Contact Info) Description 11/29/2020 Scan HEALTH INFO SRVCS Scanned, Documents Image [...] ( Contact Info) Description 04/14/2024 2:00 PM BISCUIT MAKER Office Visit [facility] Multispecialty Care - [address], [address] [place] [address] Julio Pulido MD 3 [place] [address] documented as of this encounter Goals Goal Patient Goal Type Associated Problems Recent Progress Patient-Stated? Author Health - patient able to perform ADLs independently General On track(2023 9:49 AM CDT) No Dianne Johnson, RN Note: 12/17/23: Patient stated she is independent with ASL's. documented as of this encounter Procedures Procedure Name Priority Date/Time Associated Diagnosis Comments IMAGE GENERIC 11/29/2020 documented in this encounter Results * IMAGE GENERIC (11/29/2020) Anatomical Region Laterality Modality Other 11/29/2020 Narrative 11/29/2020 Ordered by an unspecified provider. us Documents Scanned SCANNING Final Result documented in this encounter Visit Diagnoses Not on filedocumented in this encounter Additional Health Concerns Assessment Noted Time PHQ-9 Depression Total Score: 0 11/23/19 12:03 PM CDT documented as of this encounter Care Teams Non Destructive Testing Technician Relationship Specialty Start Date End Date Sanjeev Webster DO [address] [place] [address] PCP - General FAMILY PRACTICE 09/25/20 Dianne Johnson, RN [address] [place] [address] Vehicle Dismantler (Ambulatory) REGISTERED NURSE 08/14/20 documented as of this encounter
--- OUTSIDE RECORDS SUMMARY | 2024-03-15 01:10 | XMS_ITS | Encounter Summary ---
Author Organization [facility] Address [facility] [place] [address] [place] [address] Care Team Providers Care Lion Trainer Name Role Phone Dianne Johnson RN Unavailable [phone] Sanjeev Webster DO Primary Care Provider + Reason for Visit * Reason Onset Date Comments Care Management 10/17/2020 Encounter Details Date Type Department Care Team (Late st Contact Info) Description 10/17/2020 Patient Outreach [facility] - [facility] [address] [place] [address] Bebe Dan, FIRST LEVELER [address] [place] [address] Care Management Social History Tobacco [...] encounter Progress Notes * SCOTT Hill - 10/17/2020 9:18 AM CDT Spoke with Hortensia at [facility] at she stated executive communications manager Dvo was trying to reach pt and was unable. Correctional Substance Abuse Counselor contacted pt to let her know. She stated her phone has not been working right . Correctional Substance Abuse Counselor gave pt contact info for Hortensia at [facility]. Pt stated she would call. documented in this encounter Plan of Treatment Upcoming Encounters Date Type Department Care Team (Late st Contact Info) Description 04/14/2024 2:00 PM MODELING ANALYST Office Visit [facility] Multispecialty Care - [facility] 3 [facility], [address] [place] [address] Julio Pulido MD 3 [place] [address] documented as of this encounter Goals Goal [...] documented as of this encounter Care Teams Lion Trainer Relationship Specialty Start Date End Date Sanjeev Webster DO [address] [place] [address] PCP - General FAMILY PRACTICE 09/25/20 Dianne Johnson, RN [facility] [place] [address] Tax Services Specialist (Ambulatory) REGISTERED NURSE 08/14/20 documented as of this encounter
--- OUTSIDE RECORDS SUMMARY | 2024-03-15 01:10 | XMS_ITS | Encounter Summary ---
Author Organization [facility] Address Count includes the [facility]6 [facility] [place] [address] [place] [address] Care Team Providers Care Associate Vice President Name Role Phone Dianne Johnson RN Unavailable [phone] Sanjeev Webster DO Primary Care Provider + Encounter Details Date Type Department Care Team (Latest Contact Info) Description 10/18/2020 - 10/18/2020 11:59 PM CDT Hospital Encounter [facility] [address] [place] [address] Sanjeev Webster DO [address] [place] [address] Discharge Disposition: Home or Self [...] have Coronavirus / COVID-19? No / Unsure 10/18/2020 10:30 AM CDT documented as of this encounter Medications at Time of Discharge acetaminophen (TYLENOL) 500 MG tablet Take 1 tablet (500 mg total) by mouth daily as needed. No more then 2500 mg per day. 08/17/2020 Cholecalciferol (VITAMIN D3) 25 MCG (1000 UT) Cap Take 1 capsule (1,000 Units total) by mouth daily. albuterol sulfate HFA 108 (90 Base) MCG/ACT inhalerIndicatio ns:Chronic obstructive pulmonary disease, unspecified COPD type ([facility]) INHALE 2 PUFFS BY MOUTH EVERY 4 TO 6 HOURS NEEDED 18 g 1 10/18/2020 03/19/19 22 amiodarone 200 MG tablet Take 100 mg by mouth daily. 10/05/2019 09/27/19 22 atorvastatin 10 MG tablet Take 10 mg by mouth daily. 11/07/2019 03/16/19 22 azelastine (AZELASTINE) 0.1 % nasal sprayIndications :Chronic frontal sinusitis,Season al allergic rhinitis, unspecified trigger 1 spray by Nasal route 2 (two) times daily. Use in each nostril as directed 30 mL 1 05/21/2020 10/16/19 22 CONTOUR NEXT TEST test strip USE 1 STRIP TO CHECK GLUCOSE THREE TIMES DAILY 03/23/2019 10/16/19 22 FEROSUL 325 (65 Fe) MG tabletIndication s:Iron deficiency anemia, unspecified iron deficiency anemia type Take 1 tablet (325 mg total) by mouth daily. 90 tablet 1 02/03/2020 12/29/19 21 furosemide 20 MG tabletIndication s:Hypertensive heart disease with congestive heart failure, unspecified heart failure type ([facility]) Take 1 tablet (20 mg total) by mouth daily. 30 tablet 2 10/18/2020 11/23/19 21 gabapentin 300 MG capsuleIndicatio ns:Back pain Take 1 capsule (300 mg total) by mouth 2 (two) times daily. 180 capsule 07/16/2020 01/17/20 22 HYDROcodone-acet aminophen 10-325 MG tabletIndication s:Chronic Pain Take 1 tablet by mouth every 6 (six) hours as needed for Pain. Indications: Chronic Pain 60 tablet 10/18/2020 11/23/19 21 lidocaine 5 %Indications:Nec k pain Apply pain patch to affected area. Change after 12 hours. 6 patch 08/30/2020 03/21/19 23 lisinopril 2.5 MG tablet Take 2.5 mg by mouth daily. 11/07/2019 10/25/19 21 OMEPRAZOLE 20 MG capsuleIndicatio ns:GERD (gastroesophagea l reflux disease) TAKE 1 CAPSULE BY MOUTH ONCE DAILY 30 MINUTES TO 1 HOUR BEFORE A MEAL 90 capsule 05/28/2020 11/23/19 21 oxymetazoline 0.05 % nasal sprayIndications :Chronic frontal sinusitis,Season al allergic rhinitis, unspecified trigger Not to exceed 3 days. May use for 3 days then refrain for 3 days and repeat as needed. 20 mL 05/21/2020 10/16/19 22 venlafaxine XR 150 MG 24 hr capsule Take 150 mg by mouth daily. 11/07/2019 11/23/19 21 warfarin 1 MG tablet Take 3 mg by mouth see administration instructions. With 6mg tablet on , fridays and mondays08/15/2020 11/23/19 21 warfarin 6 MG tablet Take 6 mg by mouth daily. 10/31/19 21 documented as of this encounter Plan of Treatment Upcoming Encounters Date Type Department Care Team (Late st Contact Info) Description 04/14/2024 2:00 PM PRESSER MACHINE Office Visit [facility] Multispecialty Care - [address], [address] [place] [address] Julio Pulido MD [address] [place] [address] documented as of this encounter Goals Goal [...] as of this encounter Care Teams Associate Vice President Relationship Specialty Start Date End Date Sanjeev Webster DO [address] [place] [address] PCP - General FAMILY PRACTICE 09/25/20 Dianne Johnson, RN [facility] [place] [address] Audit Manager (Ambulatory) REGISTERED NURSE 08/14/20 documented as of this encounter
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
--- OUTSIDE RECORDS SUMMARY | 2024-03-15 01:10 | XMS_ITS | Encounter Summary ---
Author Organization [facility] Address Replaced by [facility] [place] [address] [place] [address] Care Team Providers Care Professor Of Marketing Name Role Phone Dianne Johnson RN Unavailable [phone] Sanjeev Webster DO Primary Care Provider + Reason for Referral * Consultation (Urgent) - Closed Specialty Diagnoses / Procedures Referred By Ian t Referred To Contact WOUND CARE / [facility] Wound Care Diagnoses Skin tear of elbow without complication Sanjeev Webster DO [address] [place] [address] Phone: tel: fax: Kev Torres MD Phone: tel: fax: Referral ID Status Reason Start Date Expiration Date V isits Requested Visits Authorized [id number] Closed Specialty Services 11/28/2020 11/27/2021 12 12 Reason for Visit * Reason Onset Date Comments Follow Up Call 11/28/2020 Encounter Details Date Type Department Care Team (Late st Contact Info) Description 11/28/2020 Telephone [facility] Group Family & Internal Medicine [facility] [address] [place] [address] Sanjeev Webster DO [address] [place] [address] Follow Up Call Social History Tobacco Use [...] have Coronavirus / COVID-19? No / Unsure 11/28/2020 10:55 AM CDT documented as of this encounter Progress Notes * Scarlett Guerrero MA - 11/29/2020 2:55 PM CDT Patient notified and v/u , appt scheduled * Sanjeev Webster DO - 11/28/2020 9:06 PM CDT Pt needs to follow up with myself in 2 weeks for reassessment. * Natalee Brown RN - 11/28/2020 11:33 AM CDT Call out wound care regarding hematoma she sustained from a fall. PCP order for an urgent referral to wound care. Called over to [facility] per patient request. That office stated they will give this office a call back after review the chart. Patient notified. LL-11/28/20 documented in this encounter Plan of Treatment Upcoming Encounters Date Type Department Care Team (Late st Contact Info) Description 04/14/2024 2:00 PM BIOLOGICS SPECIALIST Office Visit [facility] [address] [facility], [address] [place] [address] Julio Pulido MD [address] [facility] [place] [address] Scheduled Referrals Name Type Priority Associated Diagnoses Orde r Schedule Ambulatory referral to Wound Clinic Referral Routine Skin tear of elbow without complication Ordered: 11/28/2020 documented as of this encounter Goals Goal Patient Goal Type Associated Problems Recent Progress Patient-Stated? Author Health - patient able to perform ADLs independently General On track(2023 9:49 AM CDT) No Dianne Johnson, RN Note: 12/17/23: Patient stated she is independent with ASL's. documented as of this encounter Visit Diagnoses Diagnosis Skin tear of elbow without complication- Primary Open wound of elbow, without mention of complication documented in this encounter Additional Health Concerns Assessment Noted Time PHQ-9 Depression Total Score: 0 11/23/19 21 12:03 PM CDT documented as of this encounter Care Teams Professor Of Marketing Relationship Specialty Start Date End Date Sanjeev Webster DO [address] [place] [address] PCP - General FAMILY PRACTICE 09/25/20 Dianne Johnson, RN [facility] [place] [address] Successfactors Consultant (Ambulatory) REGISTERED NURSE 08/14/20 documented as of this encounter
--- OUTSIDE RECORDS SUMMARY | 2024-03-15 01:10 | XMS_ITS | Encounter Summary ---
Author Organization [facility] Address [address] [place] [address]. [place] [address] [place] [address] Care Team Providers Care Lining Layer Name Role Phone Dianne Johnson RN Unavailable [phone] Sanjeev Webster DO Primary Care Provider + Encounter Details Date Type Department Care Team (Latest Contact Info) Description 12/12/2020 Travel Social History Tobacco Use Types Packs/Day [...] 04/14/2024 2:00 PM TOBACCO GRADER Office Visit [facility] Multispecialty Care - [address], [address] [place] [address] Julio Pulido MD [address] [place] [address] documented as of this encounter Goals Goal [...] as of this encounter Care Teams Lining Layer Relationship Specialty Start Date End Date Sanjeev Webster DO [address] [place] [phone] PCP - General FAMILY PRACTICE 09/25/20 Dianne Johnson, RN [address] [place] [address] Label Tacker (Ambulatory) REGISTERED NURSE 08/14/20 documented as of this encounter
--- OUTSIDE RECORDS SUMMARY | 2024-03-15 01:10 | XMS_ITS | Encounter Summary ---
Author Organization [facility] Address [address] [place] [address]. [place] [address] [place] [address] Care Team Providers Care Enterprise Resource Planner Name Role Phone Dianne Johnson RN Unavailable [phone] Sanjeev Webster DO Primary Care Provider + Encounter Details Date Type Department Care Team (Latest Contact Info) Description 12/07/2020 Travel Social History Tobacco Use Types Packs/Day [...] st Contact Info) Description 04/14/2024 2:00 PM PHOTO STUDIO ASSISTANT Office Visit [facility] Multispecialty Care - [address], [address] [place] [address] Julio Pulido MD [address] [place] [address] documented as of this encounter Goals Goal [...] documented as of this encounter Care Teams Enterprise Resource Planner Relationship Specialty Start Date End Date Sanjeev Webster DO [address] [place] [id number] PCP - General FAMILY PRACTICE 09/25/20 Dianne Johnson, RN [address] [place] [address] Dance Therapist (Ambulatory) REGISTERED NURSE 08/14/20 documented as of this encounter
--- OUTSIDE RECORDS SUMMARY | 2024-03-15 01:10 | XMS_ITS | Encounter Summary ---
Author Organization [facility] Address [facility]6 [facility] [place] [address] [place] [address] Care Team Providers Care Auto Haulaway Driver Name Role Phone Casey Johnson RN Unavailable [phone] Sanjeev Webster DO Primary Care Provider + Reason for Visit * Reason Onset Date Comments Care Management 10/23/2020 Encounter Details Date Type Department Care Team (Late st Contact Info) Description 10/23/2020 Patient Outreach [facility] Family & Internal Medicine [address] [address] Casey Johnson RN [address] [place] [address] Care Management Social History Tobacco [...] Progress Notes * Casey Johnson, RN - 10/23/2020 12:40 PM CDT Chronic Care Management: Patient concerns or urgent matters that need addressed: None Patient Status: Patient stated she hasn't checked her B/P due to her B/P monitor not working correctly. Patient stated she doesn't know if she can afford a B/P monitor at this time. Patient has [employer] insurance andcan get a B/P monitor from [employer]. Patient gives CC permission to contact her granddaughter; Trinidad to ask her if she can order one since she has the catalog. Stated her granddaughter may be hard to get a hold of. Patient stated she hasn't called Nadia at [facility] yet to find out about pet care worker services. Stated her phone has been acting up. Patient confirmed [employer] number at [phone]. CC reached out to Bebe BHATTI) to confirm patient has the correct phone number. Encouraged patient to call when she gets off the phone with CC. Patient stated she will call. Patient is also requesting resources to get food stamps. She is agreeable for CC to discuss this with kwabena Abdi to see if she can help her apply. 10/23: Left message for Trinidad to return CC phone call regarding B/P monitor and food stamps. Will await a return phone call. 10/24: Attempted to contact Trinidad again without a response. Message sent to Bebe BHATTI) to find out if she can assist patient in getting a B/P monitor through [employer] and apply for food stamps. 10/24: Granddaughter called back. Stated she works at the school and today is the first day back. Gave Trinidad the web site to get OTC products from [employer] and gave her the phone number to order. Informed her patient is requesting food stamps. Trinidad stated Arslan Pierre is coming over tomorrow regarding associate director career services services. Stated patient told her it's through her insurance. Gave Trinidad BHATTI)number to reach out regarding plant and equipment worker services as this is through [facility]. Gave Trinidad Zuniga's number at [facility] to confirm. Sent message to Bebe BHATTI) to leave a detailed message on Trinidad's phone (Per Trinidad) regarding how to apply for food stamps and let her know if Arslan Pierre is from [facility]. Trinidad state patient called her last night and stated she checked her B/P with a wrist B/P monitor. Her B/P was 190/80 and rechecked her B/P and it was 200/88. Trinidad stated patient was supposed tocall 's office about her B/P readings this am. No record of patient calling. Informed Trinidad that will send a message to 's nursing team. Plan of Care: Follow up with on 11/22/20 or call before that time if needed. [...] Pain medication, ice, and heat help some. ??? Health - patient able to perform [...] dishes her back hurts. Reports Tylenol or [place] helps a little. Message sent to Bebe BHATTI) to find out the status on plant and equipment worker. 10/23: Independent with ADL's. Upcoming Visit Appointments: Future Appointments Date Time Provider Department Center 11/05/2020 1:00 PM MD WILLARD Jacob [facility] 11/22/2020 11:40 AM Sanjeev Webster DO [facility] Quality care gaps: Health Maintenance Topic Date Due ??? Lipid Panel Never done ??? Diabetes: Retinopathy Eye Exam Never done ??? DEXA SCAN (GENERAL) Never done ??? Zoster Vaccines (2 of 3) 02/19/2016 ??? Hemoglobin A1C 06/04/2020 ??? Medicare Wellness Visit 11/20/2020 (Originally 2009) [...] of [place] heart without angina pectoris ??? Dyslipidemia associated with type 2 diabetes mellitus (CMS/HCC) ??? Dyspnea on exertion ??? H/O mechanical aortic valve replacement ??? Hypertensive heart disease with congestive heart failure (CMS/HCC) ??? LBBB (left bundle branch block) ??? Myopathy ??? VAZQUEZ on CPAP ??? Paroxysmal atrial flutter (CMS/HCC) ??? Pre-syncope ??? Kidney dysfunction ??? Memory [...] neuropathy ??? Parathyroid adenoma ??? Polymyalgia rheumatica (CMS/[facility]) ??? Osteoporosis ??? Numbness ??? Muscle cramps ??? Closed stable burst fracture of sixth thoracic vertebra, initial encounter ([facility]) Medications: Current Outpatient Medications Medication [...] mouth daily. 30 tablet 2 ??? gabapentin 300 MG capsule Take 1 [...] ??? warfarin 1 MG tablet Take 3 mg by mouth see administration instructions. With 6mg tablet on , fridays and mondays ??? warfarin 6 MG tablet Take 6 mg by mouth daily. No current facility-administered medications for this visit. CASEY JOHNSON RN documented in this encounter Plan of Treatment Upcoming Encounters Date Type Department Care Team (Late st Contact Info) Description 04/14/2024 2:00 PM MANAGER TECHNICAL SUPPORT Office Visit [facility] Multispecialty Care - [facility] [address] [facility], [address] [place] [address] Julio Pulido MD [address] [place] [address] documented as of this encounter Goals Goal [...] as of this encounter Care Teams Auto Haulaway Driver Relationship Specialty Start Date End Date Sanjeev Webster DO [address] [place] [address] PCP - General FAMILY PRACTICE 09/25/20 Casey Johnson, RN [address] [place] [address] Tar Leveler (Ambulatory) REGISTERED NURSE 08/14/20 documented as of this encounter
--- OUTSIDE RECORDS SUMMARY | 2024-03-15 01:10 | XMS_ITS | Encounter Summary ---
Author Organization [facility] Address [facility] [facility] [place] [address] [place] [address] Care Team Providers Care Enamel Applier Name Role Phone Dianne Johnson RN Unavailable [phone] Sanjeev Webster DO Primary Care Provider + Reason for Referral * Consultation (Emergency) - Closed Specialty Diagnoses / Procedures Referred By Ian malagon Referred To Contact Diagnoses Pain in joint involving forearm Sanjeev Webster DO [address] [place] [address] Phone: tel: fax: Valerio Benitez MD [address] [facility] [address] [place] [address] Phone: tel: fax: Referral ID Status Reason Start Date Expiration Date V isits Requested Visits Authorized [id number] Closed Specialty Services 11/19/2020 11/18/2021 6 6 Reason for Visit * Reason Onset Date Comments Referral Request 11/19/2020 Encounter Details Date Type Department Care Team (Late st Contact Info) Description 11/19/2020 Telephone [facility] Medical Group Family & Internal Medicine - [place] [address] [place] [address] Sanjeev Webster DO [address] [place] [address] Referral Request Social History Tobacco Use Types [...] Progress Notes * Trixie Castillo MA - 11/19/2020 1:54 PM CDTAddended by: TRIXIE CASTILLO on: 11/19/2020 01:54 PM Modules accepted: Orders * Trixie Castillo MA - 11/19/2020 1:51 PM CDT Referral placed as stat/urgent. Doc Haloed the referral team. * Adrianne Elizabeth - 11/19/2020 8:20 AM CDT Patient is asking for a referral for Dr. Benitez Appointment: 11/19 Fx: [phone] Dx: [phone] documented in this encounter Plan of Treatment Upcoming Encounters Date Type Department Care Team (Late st Contact Info) Description 04/14/2024 2:00 PM LAUNDRY WASHER Office Visit [facility] Group Multispecialty Care - [facility] [address] [facility], [address] [place] [address] Julio Pulido MD [address] [facility] [place] [address] Scheduled Referrals Name Type Priority Associated Diagnoses Orde r Schedule Ambulatory referral to Orthopedics (OTHER) Referral STAT Pain in joint involving forearm Ordered: 11/19/2020 documented as of this encounter Goals Goal [...] gangrene, without long-term current use of insulin ([facility])- Primary Pain in joint involving forearm Pain in joint, forearm documented in this encounter Additional Health Concerns Assessment Noted Time PHQ-9 Depression Total Score: 5 09/19/19 21 2:18 PM CDT documented as of this encounter Care Teams Enamel Applier Relationship Specialty Start Date End Date Sanjeev Webster DO [address] [place] [address] PCP - General FAMILY PRACTICE 09/25/20 Dianne Johnson, RN [address] [place] [address] Material Liaison (Ambulatory) REGISTERED NURSE 08/14/20 documented as of this encounter
--- OUTSIDE RECORDS SUMMARY | 2024-03-15 01:10 | XMS_ITS | Encounter Summary ---
Author Organization [facility] Address [facility] [place] [address] [place] [address] Care Team Providers Care Professional Wrestler Name Role Phone Dianne Johnson RN Unavailable [phone] Sanjeev Webster DO Primary Care Provider + Encounter Details Date Type Department Care Team (Late st Contact Info) Description 11/05/2020 Orders Only [facility] Group Multispecialty Care - [facility] [address] [place] [address] Terrence Escudero MD [address] [place] [address] Social History Tobacco Use Types [...] Contact Info) Description 04/14/2024 2:00 PM TOBACCO WEIGHER Office Visit [facility] Multispecialty Care - [facility] [address] [facility], [address] [place] [address] Julio Pulido MD [address] [place] [address] documented as of this encounter Goals Goal Patient Goal Type Associated Problems Recent Progress Patient-Stated? Author Health - patient able to perform ADLs independently General On track(2023 9:49 AM CDT) No Dianne Johnson, RN Note: 12/17/23: Patient stated she is independent with ASL's. documented as of this encounter Visit Diagnoses Diagnosis Bilateral foot pain- Primary Pain in limb documented in this encounter Additional Health Concerns Assessment Noted Time PHQ-9 Depression Total Score: 5 09/19/19 21 2:18 PM CDT documented as of this encounter Care Teams Professional Wrestler Relationship Specialty Start Date End Date Sanjeev Webster DO [address] [place] [address] PCP - General FAMILY PRACTICE 09/25/20 Dianne Johnson, RN [address] [place] [address] Oil Pipeline Dispatcher (Ambulatory) REGISTERED NURSE 08/14/20 documented as of this encounter
--- OUTSIDE RECORDS SUMMARY | 2024-03-15 01:10 | XMS_ITS | Encounter Summary ---
Author Organization [facility] Address [facility] [place] [address] [place] [address] Care Team Providers Care Riding Double Name Role Phone Dianne Johnson RN Unavailable [phone] Sanjeev Webster DO Primary Care Provider + Encounter Details Date Type Department Care Team (Latest Contact Info) Description 11/28/2020 Scan HEALTH INFO SRVCS Scanned, Documents Social [...] st Contact Info) Description 04/14/2024 2:00 PM ASPHALT COATER Office Visit [facility] Medical Group Multispecialty Care - [address], [address] [place] [address] Julio Pulido MD 3 [place] [address] documented as of this encounter Goals Goal [...] documented as of this encounter Care Teams Riding Double Relationship Specialty Start Date End Date Sanjeev Webster DO [address] [place] [id number] PCP - General FAMILY PRACTICE 09/25/20 Dianne Johnson, RN [address] [place] [address] Sow Farm Barn Technician (Ambulatory) REGISTERED NURSE 08/14/20 documented as of this encounter
--- OUTSIDE RECORDS SUMMARY | 2024-03-15 01:10 | XMS_ITS | Encounter Summary ---
Author Organization [facility] Address [address] [place] [address]. [place] [address] [place] [address] Care Team Providers Care Shingle Bolt Cutter Name Role Phone Dianne Johnson RN Unavailable [phone] Sanjeev Webster DO Primary Care Provider + Encounter Details Date Type Department Care Team (Latest Contact Info) Description 10/22/2020 Travel Social History Tobacco Use Types Packs/Day [...] Contact Info) Description 04/14/2024 2:00 PM HAND STITCHER Office Visit [facility] Medical Group Multispecialty Care - [address], [address] [place] [address] Julio Pulido MD 3 [place] [address] documented as of this encounter Goals Goal [...] documented as of this encounter Care Teams Shingle Bolt Cutter Relationship Specialty Start Date End Date Sanjeev Webster DO [address] [place] [address] PCP - General FAMILY PRACTICE 09/25/20 Dianne Johnson, RN [address] [place] [address] Veterinarian Assistant (Ambulatory) REGISTERED NURSE 08/14/20 documented as of this encounter
--- OUTSIDE RECORDS SUMMARY | 2024-03-15 01:10 | XMS_ITS | Encounter Summary ---
Author Organization [facility] Address [address] [place] [address]. [place] [address] [place] [address] Care Team Providers Care Basket Patcher Name Role Phone Dianne Johnson RN Unavailable [phone] Sanjeev Webster DO Primary Care Provider + Encounter Details Date Type Department Care Team (Latest Contact Info) Description 11/30/2020 Travel Social History Tobacco Use Types Packs/Day [...] Description 04/14/2024 2:00 PM ORNAMENTAL METAL WORKER Office Visit [facility] Medical Group Multispecialty Care - [address], [address] [place] [address] Julio Pulido MD 3 [place] [address] documented as of this encounter Goals Goal [...] documented as of this encounter Care Teams Basket Patcher Relationship Specialty Start Date End Date Sanjeev Webster DO [address] [place] [address] [id number] PCP - General FAMILY PRACTICE 09/25/20 Dianne Johnson, RN [address] [place] [address] Aerial Sprayer (Ambulatory) REGISTERED NURSE 08/14/20 documented as of this encounter
--- OUTSIDE RECORDS SUMMARY | 2024-03-15 01:10 | XMS_ITS | Encounter Summary ---
Author Organization [facility] Address [facility] [place] [address] [place] [address] Care Team Providers Care Burr Grinder Name Role Phone Dianne Johnson RN Unavailable [phone] Sanjeev Webster DO Primary Care Provider + Reason for Visit * Reason Onset Date Comments Results 11/26/2020 Encounter Details Date Type Department Care Team (Late st Contact Info) Description 11/26/2020 Telephone [facility] Medical Group Family & Internal Medicine [address] [address] Sanjeev Webster DO [facility] [place] [address] Results Social History Tobacco Use [...] have Coronavirus / COVID-19? No / Unsure 11/22/2020 11:44 AM CDT documented as of this encounter Progress Notes * Scarlett Guerrero MA - 11/26/2020 12:26 PM CDT Patient notified and v/u * Scarlett Guerrero MA - 11/26/2020 12:26 PM CDT ----- Message from Sanjeev Webster DO sent at 11/25/2020 1:57 PM CDT ----- Labs are mostly stable; will repeat BMP at next OV. A1c well controlled at 6.2. documented in this encounter Plan of Treatment Upcoming Encounters Date Type Department Care Team (Late st Contact Info) Description 04/14/2024 2:00 PM MAILROOM MESSENGER Office Visit [facility] Medical Group Multispecialty Care - [facility] [address] [facility], [address] [place] [phone] Julio Pulido MD 3 [place] [address] documented as of this encounter Goals Goal [...] documented as of this encounter Care Teams Burr Grinder Relationship Specialty Start Date End Date Sanjeev Webster DO [address] [place], [place] [phone] PCP - General FAMILY PRACTICE 09/25/20 Dianne Johnson, RN [facility] [place] [address] Power Equipment Technology Instructor (Ambulatory) REGISTERED NURSE 08/14/20 documented as of this encounter
--- OUTSIDE RECORDS SUMMARY | 2024-03-15 01:10 | XMS_ITS | Encounter Summary ---
Author Organization [facility] Address [facility] [place] [address] [place] [address] Care Team Providers Care Tooth Cutter Pinion Name Role Phone Dianne Johnson RN Unavailable [phone] Sanjeev Webster DO Primary Care Provider + Encounter Details Date Type Department Care Team (Latest Contact Info) Description 12/12/2020 2:43 PM CDT - 12/12/2020 11:59 PM CDT Hospital Encounter [facility] [address] [place], [place] [id number] [place] [address] [facility] [address] [place] [address] Discharge Disposition: Home or Self [...] Chronic obstructive pulmonary disease, unspecified COPD type ([facility]) INHALE 2 PUFFS BY MOUTH EVERY 4 [...] congestive heart failure, unspecified heart failure type ([facility]) Take 1 tablet (20 mg total) by [...] st Contact Info) Description 04/14/2024 2:00 PM SHRINK PIT OPERATOR Office Visit [facility] Medical Group Multispecialty Care - [address], [address] [place] [address] Julio Pulido MD [address] [place] [address] documented as of this encounter Goals Goal [...] documented as of this encounter Care Teams Tooth Cutter Pinion Relationship Specialty Start Date End Date Sanjeev Webster DO [address] [place] [address] PCP - General FAMILY PRACTICE 09/25/20 Dianne Johnson, RN [facility] [place] [address] Student Records Specialist (Ambulatory) REGISTERED NURSE 08/14/20 documented as of this encounter
--- OUTSIDE RECORDS SUMMARY | 2024-03-15 01:10 | XMS_ITS | Encounter Summary ---
Author Organization [facility] Address [address] [place] [address]. [place] [address] [place] [address] Care Team Providers Care Gunite Mixer Name Role Phone Dianne Johnson RN Unavailable [phone] Sanjeev Webster DO Primary Care Provider + Reason for Visit * Reason Comments Image (SCAN) Encounter Details Date Type Department Care Team (Latest Contact Info) Description 11/19/2020 Scan HEALTH INFO SRVCS Scanned, Documents Image [...] ( Contact Info) Description 04/14/2024 2:00 PM MECHANIC SOUND TECHNICIAN Office Visit [facility] Medical Group Multispecialty Care - [address], [address] [place] [address] Julio Pulido MD 3 [place] [address] documented as of this encounter Goals Goal Patient Goal Type Associated Problems Recent Progress Patient-Stated? Author Health - patient able to perform ADLs independently General On track(2023 9:49 AM CDT) No Dianne Johnson, RN Note: 12/17/23: Patient stated she is independent with ASL's. documented as of this encounter Procedures Procedure Name Priority Date/Time Associated Diagnosis Comments IMAGE GENERIC 11/19/2020 documented in this encounter Results * IMAGE GENERIC (11/19/2020) Anatomical Region Laterality Modality Other 11/19/2020 Narrative 11/19/2020 Ordered by an unspecified provider. us Documents Scanned SCANNING Final Result documented in this encounter Visit Diagnoses Not on filedocumented in this encounter Additional Health Concerns Assessment Noted Time PHQ-9 Depression Total Score: 5 09/19/19 21 2:18 PM CDT documented as of this encounter Care Teams Gunite Mixer Relationship Specialty Start Date End Date Sanjeev Webster DO [address] [place] [address] PCP - General FAMILY PRACTICE 09/25/20 Dianne Johnson, RN [address] [place] [address] Support Specialist (Ambulatory) REGISTERED NURSE 08/14/20 documented as of this encounter
--- OUTSIDE RECORDS SUMMARY | 2024-03-15 01:10 | XMS_ITS | Encounter Summary ---
Author Organization [facility] Address [facility] [place] [address] [place] [address] Care Team Providers Care Director Erp Name Role Phone Dianne Johnson RN Unavailable [phone] Sanjeev Webster DO Primary Care Provider + Reason for Visit * Reason Onset Date Comments Results 11/28/2020 Encounter Details Date Type Department Care Team (Late st Contact Info) Description 11/28/2020 Telephone [facility] Medical Group Family & Internal Medicine [address] [address] Sanjeev Webster DO [facility] [place] [address] Results Social History Tobacco Use [...] Progress Notes * Natalee Brown RN - 11/28/2020 1:09 PM CDT Call out to Dr. Benitez's office and the asked this office to fx over X ray report. The provider will review after he is out of surgery and let this office know when they can see the patient. Notified patient. Opportunity given for all questions to be answered, no further needs voiced at this time. LL-11/28/20 * Natalee Brown RN - 11/28/2020 12:52 PM CDT ----- Message from Sanjeev Webster DO sent at 11/28/2020 12:47 PM CDT ----- There appears to be a fracture of the fifth metacarpal, likely where pt noted deformity. Did pt fall again since her fall earlier this month? We will need to have her seen by ortho for this. Pt apparently saw Dr. Fang with [facility] for her wrist fracture. Please call over to their office to see if they'd be able to see her for this. documented in this encounter Plan of Treatment Upcoming Encounters Date Type Department Care Team (Late st Contact Info) Description 04/14/2024 2:00 PM TOOL ANALYST Office Visit [facility] Medical Group Multispecialty Care - [facility] 3 [facility], [address] [place] [address] Julio Pulido MD 3 [place] [address] documented as of this encounter Goals Goal Patient Goal Type Associated Problems Recent Progress Patient-Stated? Author Health - patient able to perform ADLs independently General On track(10/10/ 2024 9:49 AM CDT) No Johnson, Dianne R, RN Note: 12/17/23: Patient stated she is independent with ASL's. documented as of this encounter Visit Diagnoses Diagnosis Displaced fracture of base of fifth metacarpal bone, left hand, initial encounter for closed fracture- Primary documented in this encounter Additional Health Concerns Assessment Noted Time PHQ-9 Depression Total Score: 0 11/23/19 21 12:03 PM CDT documented as of this encounter Care Teams Director Erp Relationship Specialty Start Date End Date Sanjeev Webster DO [address] [place] [address] PCP - General FAMILY PRACTICE 09/25/20 Dianne Johnson, RN [address] [place] [address] Director Radio News (Ambulatory) REGISTERED NURSE 08/14/20 documented as of this encounter
--- OUTSIDE RECORDS SUMMARY | 2024-03-15 01:10 | XMS_ITS | Encounter Summary ---
Author Organization [facility] Address [facility]6 [facility] [place] [address] [place] [address] Care Team Providers Care Child Protection Specialist Name Role Phone Dianne Johnson RN Unavailable [phone] Sanjeev Webster DO Primary Care Provider + Encounter Details Date Type Department Care Team (Latest Contact Info) Description 12/11/2020 Scan HEALTH INFO SRVCS Scanned, Documents Social [...] st Contact Info) Description 04/14/2024 2:00 PM INFORMATION SYSTEMS COORDINATOR Office Visit [facility] Medical Group Multispecialty Care - [address], [address] [place] [address] Julio Pulido MD 3 [place] [address] documented as of this encounter Goals Goal [...] documented as of this encounter Care Teams Child Protection Specialist Relationship Specialty Start Date End Date Sanjeev Webster DO [address] [place] [address] PCP - General FAMILY PRACTICE 09/25/20 Dianne Johnson, RN [address] [place] [address] Marina Manager (Ambulatory) REGISTERED NURSE 08/14/20 documented as of this encounter
--- OUTSIDE RECORDS SUMMARY | 2024-03-15 01:10 | XMS_ITS | Encounter Summary ---
Author Organization [facility] Address [facility] [place] [address] [place] [address] Care Team Providers Care Agricultural Crop Farm Manager Name Role Phone Dianne Johnson RN Unavailable [phone] Sanjeev Webster DO Primary Care Provider + Reason for Visit * Reason Onset Date Comments Lab Results 10/23/2020 Encounter Details Date Type Department Care Team (Late st Contact Info) Description 10/23/2020 Telephone [facility] Medical Group Family & Internal Medicine [address] [address] Sanjeev Webster DO [facility] [place] [address] Lab Results Social History Tobacco [...] Progress Notes * Trixie Jose MA - 10/23/2020 2:39 PM CDT Patient informed and voiced understanding * Trixie Jose MA - 10/23/2020 2:37 PM CDT ----- Message from Sanjeev Webster DO sent at 10/23/2020 1:00 PM CDT ----- Most results have improved or stabilized; repeat at next OV. documented in this encounter Plan of Treatment Upcoming Encounters Date Type Department Care Team (Late st Contact Info) Description 04/14/2024 2:00 PM PATIENT REGISTRATION SUPERVISOR Office Visit [facility] Medical Group Multispecialty Care - [facility] 3 [facility], [address] [place] [phone] Julio Pulido MD 3 [place] [address] documented as of this encounter Goals Goal [...] as of this encounter Care Teams Agricultural Crop Farm Manager Relationship Specialty Start Date End Date Sanjeev Webster DO [address] [place] [address] PCP - General FAMILY PRACTICE 09/25/20 Dianne Johnson, RN [address] [place] [address] Gas Station Clerk (Ambulatory) REGISTERED NURSE 08/14/20 documented as of this encounter
--- OUTSIDE RECORDS SUMMARY | 2024-03-15 01:10 | XMS_ITS | Encounter Summary ---
Author Organization [facility] Address [facility] [place] [address] [place] [address] Care Team Providers Care Airport Shuttle Driver Name Role Phone Dianne Johnson RN Unavailable [phone] Sanjeev Montez DO Primary Care Provider + Reason for Referral * Consultation/Treatment (Routine) - Closed Specialty Diagnoses / Procedures Referred By Ian malagon Referred To Contact ORTHOPAEDIC SURGERY Diagnoses Closed displaced fracture of base of fifth metacarpal bone of left hand, initial encounter Sanjeev Montez DO [address] [place] [address] Phone: tel: fax: Valerio Benitez MD [address] [facility] [address] [place] [id number] Phone: tel: fax: Referral ID Status Reason Start Date Expiration Date V isits Requested Visits Authorized [id number] Closed Specialty Services 11/28/2020 12/28/2021 1 1 Scheduling Instructions Patient is already seeing Dr Benitez and would like to see him for this as well. Reason for Visit * Reason Comments Hand Pain Cuts redness Encounter Details Date Type Department Care Team (Late st Contact Info) Description 11/28/2020 11:00 AM CDT Office Visit [facility] Family & Internal Medicine [address] [address] Sanjeev Montez DO [address] [place] [address] Hand Pain; Cuts (redness) Social History Tobacco Use Types Packs/Day Years [...] Sign Reading Time Taken Comments Blood Pressure 128/62 11/28/2020 12:23 PM CDT Pulse 82 11/28/2020 12:23 PM CDT Temperature 36.7 ??C (98 ??F) 11/28/2020 12:23 PM CDT Respiratory Rate 16 11/28/2020 12:23 PM CDT Oxygen Saturation 97% 11/28/2020 12:23 PM CDT Inhaled Oxygen Concentration - - Weight 91.7 kg (202 lb 1.6 oz) 11/28/2020 12:23 PM CDT Height 162.6 cm (5' 4 ) 11/28/2020 12:23 PM CDT Body Mass Index 34.69 11/28/2020 12:23 PM CDT documented in this encounter Progress Notes * Sanjeev Montez DO - 11/28/2020 11:00 AM CDT Images from the original note were not included. GENERAL OFFICE VISIT Encounter Date: 11/28/2020 Chief Complaint: 75-year-old female presents for Hand Pain and Cuts (redness) HPI: Pt presents with multiple issues. Pt has known history of contusion and hematoma on left upper arm. Pt now has some coagulated blood over hematoma and spreading erythema. She notes pain in the area. Pt also notes pain in the right hand, specifically around the base of the fifth metacarpal. She is not aware of any repeat injury outside of the fall noted previously. No other acute symptoms. Review of Systems Constitutional: Negative for fever. Musculoskeletal: See HPI Skin: See HPI Neurological: See HPI Patient Active Problem List Diagnosis ??? Abnormal stress test ??? Bradycardia ??? Chronic anticoagulation ??? Coronary artery disease involving ely shoshone coronary artery of ely shoshone heart without angina pectoris ??? Diabetes mellitus [...] (CMS/HCC) ??? PVD (peripheral vascular disease) (CMS/HCC) Past Medical History: Diagnosis Date ??? [...] Used ??? Tobacco comment: non smoker Substance and Sexual Activity ??? Alcohol use: [...] Gatherings with Friends and Family: ??? Attends Faith Services: ??? Active Member of Clubs or Organizations: ??? Attends Club or Organization Meetings: ??? Marital Status: Intimate Partner Violence: ??? Fear of Current or Ex-Partner: ??? Emotionally Abused: ??? Physically Abused: ??? Sexually Abused: Immunization History Administered Date(s) Administered ? ? Fluzone High Dose - >Age 65 (Prefilled Syringe) 12/03/2017, 12/13/2018, 02/27/2020 ??? Influenza 02/26/2012, 12/02/2012, 11/30/2013, 12/23/2013, 12/27/2014 ??? Influenza Adult (Generic) 02/26/2012, 11/30/2013, 12/07/2014, 12/25/2016, 12/03/2017 ??? PFIZER COVID-19, MRNA, LNP-S, PF, 30 MCG/0.3 ML DOSE 05/10/2020, 06/01/2020 ??? Pneumococcal (Pneumovax 23) 03/30/2017 ??? Pneumococcal (Prevnar 13) 06/15/2015 ??? Td 07/22/2014 ??? Tdap (Boostrix) 09/05/2020 ??? Tdap (Generic) 06/05/2016, 09/05/2020 ??? Tetanus/Diptheria 07/22/2014 ??? Zoster (Zostavax) [address]19 Unt/0.65Ml 12/25/2015 Current Outpatient Medications Medication Sig [...] nostril as directed 30 mL 1 ??? cephALEXin 500 MG capsule Take 1 capsule (500 mg total) by mouth every 6 (six) hours for 10 days. 40 capsule 0 ??? Cholecalciferol (VITAMIN D3) 25 [...] mg total) by mouth see administration instructions. [id number] tablet on , fridays and mondays 270 [...] Use in each nostril as directed ??? Cholecalciferol (VITAMIN D3) 25 MCG (1000 UT) Cap Take 1,000 Units by mouth daily. ??? CONTOUR NEXT TEST test strip USE 1 STRIP TO CHECK GLUCOSE THREE TIMES DAILY ??? FEROSUL 325 (65 Fe) MG tablet Take 1 tablet (325 mg total) by mouth daily. ??? furosemide 20 MG tablet Take 1 tablet (20 mg total) by mouth daily. ??? gabapentin 300 MG capsule Take 1 capsule (300 mg total) by mouth 2 (two) times daily. ??? HYDROcodone-acetaminophen 10-325 MG tablet Take 1 tablet by mouth every 6 (six) hours as neededfor Pain. Indications: Chronic Pain ??? lidocaine 5 % Apply pain patch to affected area. Change after 12 hours. ??? lisinopril 40 MG tablet Take 1 tablet (40 mg total) by mouth daily. ??? omeprazole 20 MG capsule Take 1 [...] mg total) by mouth see administration instructions. [id number] tablet on , fridays and mondays ??? [...] B Other (see comment) Objective: Filed Vitals: 11/28/20 1223 BP: 128/62 Pulse: 82 Resp: 16 Temp: 98 ??F (36.7 ??C) TempSrc: Skin SpO2: 97% Weight: 91.7 kg (202 lb 1.6 oz) Height: 5' 4 (1.626 m) Physical Exam Constitutional: She is well-developed, well-nourished, and in no distress. HENT: Head: Normocephalic and atraumatic. Right Ear: External ear normal. Left Ear: External ear normal. Eyes: Conjunctivae are normal. Cardiovascular: Normal rate, regular rhythm and normal heart sounds. Exam reveals no gallop and no friction rub. No murmur heard. Pulmonary/Chest: Effort normal and breath sounds normal. No respiratory distress. She has no wheezes. She has no rales. Abdominal: Soft. Bowel sounds are normal. There is no abdominal tenderness. Musculoskeletal: Comments: Tenderness at base of fifth metacarpal of left hand, NV intact Skin: Hematoma still noted on LUE with coagulated blood noted on surface of hematoma, erythema also notedon LUE concerning for cellulitis Nursing note and vitals reviewed. XR HAND LT 3V Narrative: Date: 11/28/2020 11:37 AM Exam: XR HAND LT 3V Comparison: No comparisons. Technique: 4 views of the left hand. History: Left hand pain of the fifth metacarpal after a fall 3 weeks ago. Findings: The distal radius and ulna appear intact. There is an old ulnar styloid avulsion injury. The carpus appears intact without abnormal angulation. There is moderate arthritis in the lateral carpus. There is advanced arthritis of the first carpal metacarpal joint with some degree of subluxation. There is a slightly displaced fracture involving the base of the fifth metacarpal. The first through fourth metacarpals appear intact. The phalanges are intact. There is scattered interphalangeal joint arthritis. There is diffuse osteopenia. There is densely calcified arterial disease. Impression: Impression: 1. Slightly angulated fracture involving the base of the fifth metacarpal. 2. Diffuse osteopenia. 3. Arthritis as described. Referred By: SANJEEV MONTEZ Interpreted By: José Avalos Jr, MD, 11/28/2020 12:37 PM Assessment & Plan: Radha was seen today for hand pain and cuts. Diagnoses and all orders for this visit: Cellulitis of left upper extremity - cephALEXin 500 MG capsule; Take 1 capsule (500 mg total) by mouth every 6 (six) hours for 10 days. Closed displaced fracture of base of fifth metacarpal bone of left hand, initial encounter - Ambulatory referral to Orthopedics (OTHER) Contusion of left upper extremity, subsequent encounter Discussion/Summary: Will start on Keflex for cellulitis and will refer to wound care for evaluation of hematoma. Will refer to orthopedics, Dr. Fang, who will see pt tomorrow for her hand fracture. Will have pt wrap hand in interim. Will have pt f/u in the next 2-3 weeks for reassessment. Pt v/u. I spent 30 minutes today reviewing the patient's medical record, obtaining history, performing an exam, ordering medications, tests, and/or procedures, documenting in the medical record, referring and/or communicating with other health care providers and reviewing and communicating test results. Sanjeev Montez DO documented in this encounter Plan of Treatment Upcoming Encounters Date Type Department Care Team (Late st Contact Info) Description 04/14/2024 2:00 PM PHOTO CARTOGRAPHER Office Visit [facility] Multispecialty Care - [facility] [address] [facility], [address] [place] [address] Julio Pulido MD [address] [place] [address] Scheduled Referrals Name Type Priority Associated Diagnoses Orde r Schedule Ambulatory referral to Orthopedics (OTHER) Referral Routine Closed displaced fracture of base of fifth metacarpal bone of left hand, initial encounter Ordered: 11/28/2020 documented as of this encounter Goals Goal Patient Goal Type Associated Problems Recent Progress Patient-Stated? Author Health - patient able to perform ADLs independently General On track(2023 9:49 AM CDT) No Dianne Johnson RN Note: 12/17/23: Patient stated she is independent with ASL's. documented as of this encounter Visit Diagnoses Diagnosis Cellulitis of left upper extremity- Primary Cellulitis and abscess of upper arm and forearm Closed displaced fracture of base of fifth metacarpal bone of left hand, initial encounter Contusion of left upper extremity, subsequent encounter documented in this encounter Additional Health Concerns Assessment Noted Time PHQ-9 Depression Total Score: 0 11/23/19 21 12:03 PM CDT documented as of this encounter Care Teams Airport Shuttle Driver Relationship Specialty Start Date End Date Sanjeev Montez DO [address] [place] [id number] PCP - General FAMILY PRACTICE 09/25/20 Dianne Johnson RN [address] [place] [address] Remote Mortgage Underwriter (Ambulatory) REGISTERED NURSE 08/14/20 documented as of this encounter
--- OUTSIDE RECORDS SUMMARY | 2024-03-15 01:10 | XMS_ITS | Encounter Summary ---
Author Organization [facility] Address [facility] [place] [address] [place] [address] Care Team Providers Care Intervention Teacher Name Role Phone Dianne Johnson RN Unavailable [phone] Sanjeve Webster DO Primary Care Provider + Encounter Details Date Type Department Care Team (Latest Contact Info) Description 11/14/2020 Scan HEALTH INFO SRVCS Scanned, Documents Social [...] Contact Info) Description 04/14/2024 2:00 PM PRODUCT SPECIALIST Office Visit [facility] Multispecialty Care - [address], [address] [place] [address] Julio Pulido MD [address] [place] [address] documented as of this encounter Goals Goal [...] documented as of this encounter Care Teams Intervention Teacher Relationship Specialty Start Date End Date Sanjeev Webster DO [address] [place] [address] PCP - General FAMILY PRACTICE 09/25/20 Dianne Johnson, RN [address] [place] [address] Carton Filling Machine Operator (Ambulatory) REGISTERED NURSE 08/14/20 documented as of this encounter
--- OUTSIDE RECORDS SUMMARY | 2024-03-15 01:10 | XMS_ITS | Encounter Summary ---
Author Organization [facility] Address [facility]. [place], [place] [address] [place] [address] Care Team Providers Care Kapok Machine Operator Name Role Phone Dianne Johnson RN Unavailable [phone] Sanjeev Webster DO Primary Care Provider + Reason for Referral * Consultation (Routine) - Closed Specialty Diagnoses / Procedures Referred By Ian t Referred To Contact ENDOCRINOLOGY Diagnoses Hyperpotassemia Serum calcium elevated Elevated PTHrP level Sanjeev Webster DO [address] [place] [address] Phone: tel: fax: [facility] Diabetes and Endocrinology - [address] [address] Phone: tel: fax: Referral ID Status Reason Start Date Expiration Date Visits Re quested Visits Authorized [id number] Closed 10/22/2020 11/22/2021 1 1 Reason for Visit * Reason Onset Date Comments Results 10/22/2020 Encounter Details Date Type Department Care Team (Late st Contact Info) Description 10/22/2020 Telephone [facility] Family & Internal Medicine [facility] [address] [place] [id number] Sanjeev Webster DO [address] [place] [address] Results Social History Tobacco Use Types Packs/Day [...] Progress Notes * Scarlett Guerrero MA - 10/22/2020 11:39 AM CDT Patient notified and v/u . Referral and lab ordered * Scarlett Guerrero MA - 10/22/2020 11:38 AM CDT ----- Message from Sanjeev Webster DO sent at 10/20/2020 2:26 PM CDT ----- Potassium is elevated very mildly. Please ensure she is not taking any potassium supplements (none are listed). Calcium and PTH are elevated. I'd like pt to be referred to endocrinology given these levels; Dr. Moreno is restarting, so I'd recommend him. Labs are otherwise stable. Recheck BMP this week; preferably no later than Thursday. documented in this encounter Plan of Treatment Upcoming Encounters Date Type Department Care Team (Late st Contact Info) Description 04/14/2024 2:00 PM INTERVENTIONIST Office Visit [facility] Multispecialty Care - [facility] [address] [facility], [address] [place] [address] Julio Pulido MD 3 [place] [address] Scheduled Referrals Name Type Priority Associated Diagnoses Orde r Schedule Ambulatory referral to Endocrinology (OTHER) Referral Routine Hyperpotassemia Serum calcium elevated Elevated PTHrP level Ordered: 10/22/2020 documented as of this encounter Goals Goal Patient Goal Type Associated Problems Recent Progress Patient-Stated? Author Health - patient able to perform ADLs independently General On track(2023 9:49 AM CDT) Dianne Corona, RN Note: 12/17/23: Patient stated she is independent with ASL's. documented as of this encounter Visit Diagnoses Diagnosis Hyperpotassemia- Primary Serum calcium elevated Hypercalcemia Elevated PTHrP level Unspecified disorder of parathyroid gland documented in this encounter Additional Health Concerns Assessment Noted Time PHQ-9 Depression Total Score: 5 09/19/19 21 2:18 PM CDT documented as of this encounter Care Teams Kapok Machine Operator Relationship Specialty Start Date End Date Sanjeev Webster DO [address] [place] [id number] PCP - General FAMILY PRACTICE 09/25/20 Dianne Johnson, RN [address] [place] [address] Third Shift Lieutenant (Ambulatory) REGISTERED NURSE 08/14/20 documented as of this encounter
--- OUTSIDE RECORDS SUMMARY | 2024-03-15 01:10 | XMS_ITS | Encounter Summary ---
Author Organization [facility] Address [facility] [place] [address] [place] [address] Care Team Providers Care Station Engineer Name Role Phone Dianne Johnson RN Unavailable [phone] Sanjeev Webster DO Primary Care Provider + Encounter Details Date Type Department Care Team (Late st Contact Info) Description 10/24/[address] [facility] [address] [place] [address] Bebe Dan, SCOTT [address] [place] [address] Social History Tobacco Use Types [...] encounter Progress Notes * SCOTT Hill - 10/24/2020 1:54 PM CDT Left VM for pts granddaughter to confirm that [facility] will be visiting the pt tomorrowand [employer] also offered assistance with [employer] OTC and SNAP application * SCOTT [place] - 10/24/2020 1:54 PM CDT Pts granddaughter returned automobile service writer call. Local Sales Manager assured her that pt was not being scammed. Granddaughter Raji voiced understanding. Local Sales Manager has also mailed SNAP application to raji to complete for pt. Local Sales Manager encouraged Padma to call with any questions. documented in this encounter Plan of Treatment Upcoming Encounters Date Type Department Care Team (Late st Contact Info) Description 04/14/2024 2:00 PM COMPLAINT EVALUATION OFFICER Office Visit [facility] Care - [facility] [address] [facility], [address] [place] [phone] Julio Pulido MD [address] [place] [address] documented as of this encounter Goals Goal [...] as of this encounter Care Teams Station Engineer Relationship Specialty Start Date End Date Sanjeev Webster DO [address] [place] [address] PCP - General FAMILY PRACTICE 09/25/20 Dianne Johnson, RN [address] [place] [address] Er Registrar (Ambulatory) REGISTERED NURSE 08/14/20 documented as of this encounter
--- OUTSIDE RECORDS SUMMARY | 2024-03-15 01:10 | XMS_ITS | Encounter Summary ---
Author Organization [facility] Address [address] [place] [address]. [place] [address] [place] [address] Care Team Providers Care Intravenous Therapy Nurse Name Role Phone Dianne Johnson RN Unavailable [phone] Sanjeev Webster DO Primary Care Provider + Reason for Visit * Reason Comments Image (SCAN) CT (SCAN) Encounter Details Date Type Department Care Team ([facility] Contact Info) Description 11/13/2020 Scan HEALTH INFO SRVCS Scanned, Documents Image (SCAN); CT (SCAN) Social History Tobacco [...] Upcoming Encounters Date Type Department Care Team ([facility] Contact Info) Description 04/14/2024 2:00 PM SCIENCE JOB TITLES Office Visit [facility] Multispecialty Care [facility] [address], [address] [place] [phone] Julio Pulido MD [address] [place] [address] documented as of this encounter Goals Goal Patient Goal Type Associated Problems Recent Progress Patient-Stated? Author Health - patient able to perform ADLs independently General On track(2023 9:49 AM CDT) Dianne Corona, RN Note: 12/17/23: Patient stated she is independent with ASL's. documented as of this encounter Procedures Procedure Name Priority Date/Time Associated Diagnosis Comments CT GENERIC 11/13/2020 IMAGE GENERIC 11/13/2020 IMAGE GENERIC 11/13/2020 IMAGE GENERIC 11/13/2020 documented in this encounter Results * IMAGE GENERIC (11/13/2020) Anatomical Region Laterality Modality Other 11/13/2020 Narrative 11/13/2020 Ordered by an unspecified provider. us Documents Scanned SCANNING Final Result * CT GENERIC (11/13/2020) Anatomical Region Laterality Modality Other 11/13/2020 Narrative 11/13/2020 Ordered by an unspecified provider. us Documents Scanned SCANNING Final Result * IMAGE GENERIC (11/13/2020) Anatomical Region Laterality Modality Other 11/13/2020 Narrative 11/13/2020 Ordered by an unspecified provider. us Documents Scanned SCANNING Final Result * IMAGE GENERIC (11/13/2020) Anatomical Region Laterality Modality Other 11/13/2020 Narrative 11/13/2020 Ordered by an unspecified provider. us Documents Scanned SCANNING Final Result documented in this encounter Visit Diagnoses Not on filedocumented in this encounter Additional Health Concerns Assessment Noted Time PHQ-9 Depression Total Score: 5 09/19/19 21 2:18 PM CDT documented as of this encounter Care Teams Intravenous Therapy Nurse Relationship Specialty Start Date End Date Sanjeev Webster DO [address] [place] [address] PCP - General FAMILY PRACTICE 09/25/20 Dianne Johnson, RN [address] [place] [address] Tire Beader Maker (Ambulatory) REGISTERED NURSE 08/14/20 documented as of this encounter
--- OUTSIDE RECORDS SUMMARY | 2024-03-15 01:10 | XMS_ITS | Encounter Summary ---
Author Organization [facility] Address [address] [place] [address]. [place] [address] [place] [address] Care Team Providers Care Manager Ob Name Role Phone Dianne Johnson RN Unavailable [phone] Sanjeev Webster DO Primary Care Provider + Encounter Details Date Type Department Care Team (Latest Contact Info) Description 11/28/2020 Travel Social History Tobacco Use Types Packs/Day [...] st Contact Info) Description 04/14/2024 2:00 PM NECKTIE CENTRALIZING MACHINE OPERATOR Office Visit [facility] Multispecialty Care - [address], [address] [place] [address] Julio Pulido MD [address] [place] [address] documented as of this encounter Goals Goal [...] as of this encounter Care Teams Manager Ob Relationship Specialty Start Date End Date Sanjeev Webster DO [address] [place] [phone] PCP - General FAMILY PRACTICE 09/25/20 Dianne Johnson, RN [address] [place] [address] Hospitality Specialist (Ambulatory) REGISTERED NURSE 08/14/20 documented as of this encounter
--- OUTSIDE RECORDS SUMMARY | 2024-03-15 01:10 | XMS_ITS | Encounter Summary ---
Author Organization [facility] Address [facility] [place] [address] [place] [address] Care Team Providers Care Automobile Technician Name Role Phone Dianne Johnson RN Unavailable [phone] Sanjeev Webster DO Primary Care Provider + Reason for Visit * Reason Onset Date Comments Care Management 11/15/2020 Encounter Details Date Type Department Care Team (Late st Contact Info) Description 11/15/2020 Patient Outreach [facility] Family & Internal Medicine [address] [address] Dianne Johnson RN [address] [place] [address] Care Management Social History Tobacco [...] Progress Notes * Dianne Johnson RN - 11/15/2020 12:13 PM CDT Chronic Care Management: 11/15/20: Attempted to contact patient x 2. Mailbox full and unable to leave a message. 11/16/20: Attempted to contact patient again without a response and mail box is full. documented in this encounter Plan of Treatment Upcoming Encounters Date Type Department Care Team (Late st Contact Info) Description 04/14/2024 2:00 PM DAIRY MACHINE OPERATOR FARMWORKER Office Visit [facility] Multispecialty Care - [facility] [address] [facility], [address] [place] [address] Julio Pulido MD [address] [place] [address] documented as of this encounter Goals Goal [...] as of this encounter Care Teams Automobile Technician Relationship Specialty Start Date End Date Sanjeev Webster DO [address] [place] [address] PCP - General FAMILY PRACTICE 09/25/20 Dianne Johnson RN [address] [place] [address] Mail Processing Clerk (Ambulatory) REGISTERED NURSE 08/14/20 documented as of this encounter
--- OUTSIDE RECORDS SUMMARY | 2024-03-15 01:10 | XMS_ITS | Encounter Summary ---
Author Organization [facility] Address [facility]. [place], [place] [address] [place] [address] Care Team Providers Care Master Machinist Name Role Phone Dianne Johnson RN Unavailable [phone] Sanjeev Webster DO Primary Care Provider + Reason for Visit * Reason Comments Follow Up 1 month Encounter Details Date Type Department Care Team (Late st Contact Info) Description 10/18/2020 10:20 AM CDT Office Visit [facility] Family & Internal Medicine [address] [phone] Sanjeev Webster DO [address] [place] [id number] Follow Up (1 month) Social History Tobacco Use Types Packs/Day Years Used Date Smoking Tobacco: Never Smokeless Tobacco: Never Tobacco Cessation:Counseling Given: No [...] Sign Reading Time Taken Comments Blood Pressure 184/72 10/18/2020 11:44 AM CDT Pulse 78 10/18/2020 10:31 AM CDT Temperature 36.1 ??C (96.9 ??F) 10/18/2020 10:31 AM C DT Respiratory Rate 16 10/18/2020 10:31 AM CDT Oxygen Saturation 92% 10/18/2020 10:31 AM CDT Inhaled Oxygen Concentration - - Weight 90.7 kg (200 lb) 10/18/2020 10:31 AM CDT Height 162.6 cm (5' 4 ) 10/18/2020 10:31 AM CDT Body Mass Index 34.33 10/18/2020 10:31 AM CDT documented in this encounter Patient Instructions * Patient Instructions* Sanjeev Webster DO - 10/18/2020 10:20 AM CDT Check BP the next few days. Blood pressures above 180/110, you should call us back. documented in this encounter Progress Notes * Sanjeev Webster DO - 10/18/2020 10:20 AM CDT Images from the original note were not included. GENERAL OFFICE VISIT Encounter Date: 10/18/20 Chief Complaint: 75-year-old female presents for Follow Up (1 month) HPI: Pt presents for follow-up today. Pt presents to discuss in detail her medicines, specifically which ones she is taking and why. Pt notes she takes hydrocodone up to 3 a day. Last fill was two months ago. It has been over 5 years. Ptwas on Lasix prior to hospitalization; it is unclear why it was stopped. She does have swelling again. Her BP is notably elevated today, but she does not have any new symptoms today. She did take most of her medications already today. Pt did not have her nuclear medicine scan of her parathyroid as scheduled on 10/15/20. Pt wasn't able to do the test for a head cold. She doesn't have any symptoms today. She is needing labs to recheck this today. Pt does live by herself, but has help most days. She has a special pill shoe planner that will limit herability to take more than she should take. She does have hydrocodone as needed outside of this shoe planner. Review of Systems Constitutional: Negative for fever. Eyes: Negative for blurred vision. Respiratory: Negative for shortness of breath. Cardiovascular: Negative for chest pain. Gastrointestinal: No acute changes Musculoskeletal: See HPI Neurological: See HPI Endo/Heme/Allergies: See HPI Psychiatric/Behavioral: See HPI Patient Active Problem List Diagnosis ??? Abnormal stress test ??? Bradycardia ??? Chronic anticoagulation ??? Coronary artery disease involving [place] coronary artery of [place] heart without angina pectoris ??? Dyslipidemia associated [...] of sixth thoracic vertebra, initial encounter (CMS/HCC) Past Medical History: Diagnosis Date ??? [...] Gatherings with Friends and Family: ??? Attends Amish Services: ??? Active Member of Clubs or Organizations: ??? Attends Club or Organization Meetings: ??? Marital Status: Intimate Partner Violence: ??? Fear of Current or Ex-Partner: ??? Emotionally Abused: ??? Physically Abused: ??? Sexually Abused: Immunization History Administered Date(s) Administered ? ? Fluzone High Dose - >Age 65 (Prefilled Syringe) 12/03/2017, 12/13/2018, 02/27/2020 ??? Influenza 12/02/2012, 12/23/2013 ??? Influenza Adult (Generic) 02/26/2012, 11/30/2013, 12/07/2014, 12/25/2016 ??? PFIZER COVID-19, MRNA, LNP-S, PF, 30 MCG/0.3 ML DOSE 05/10/2020, 06/01/2020 ??? Pneumococcal (Pneumovax 23) 03/30/2017 ??? Pneumococcal (Prevnar 13) 06/15/2015 ??? Tdap (Boostrix) 09/05/2020 ??? Tetanus/Diptheria 07/22/2014 ??? Zoster (Zostavax) [address] Unt/0.65Ml 12/25/2015 Current Outpatient Medications Medication Sig [...] tablet Take 650 mg by mouth. ??? amiodarone 200 MG tablet Take 100 [...] area. Change after 12 hours. ??? lisinopril 2.5 MG tablet Take 2.5 mg by mouth daily. ??? OMEPRAZOLE 20 MG capsule TAKE 1 CAPSULE BY MOUTH ONCE DAILY 30 MINUTES TO 1 HOUR BEFORE A MEAL ??? oxymetazoline 0.05 % nasal spray Not [...] prior to visit. Allergies Allergen Reactions ??? Bacitracin Other (see comment) ??? Benzalkonium Other (see comment) ??? Gramicidin Other (see comment) ??? Hydrocortisone Other (see comment) ??? Neomycin Other (see comment) ??? Polymyxin B Other (see comment) Objective: Filed Vitals: 10/18/20 1031 10/18/20 1144 BP: (!) 188/80 (!) 184/72 Pulse: 78 Resp: 16 Temp: 96.9 ??F (36.1 ??C) TempSrc: Temporal SpO2: 92% Weight: 90.7 kg (200 lb) Height: 5' 4 (1.626 m) Physical Exam Vitals and nursing note reviewed. Constitutional: Appearance: She is well-developed. HENT: Head: Normocephalic and atraumatic. Right Ear: External ear normal. Left Ear: External ear normal. Eyes: Conjunctiva/sclera: Conjunctivae normal. Cardiovascular: Rate and Rhythm: Normal rate and regular rhythm. Heart sounds: Normal heart sounds. No murmur. No friction rub. No gallop. Pulmonary: Effort: [...] and all orders for this visit: Chronic obstructive pulmonary disease, unspecified COPD type ([facility]) - albuterol sulfate HFA 108 (90 Base) MCG/ACT inhaler; INHALE 2 PUFFS BY MOUTH EVERY 4 TO 6 HOURS NEEDED - COMPREHENSIVE METABOLIC PANEL; Future - TSH W/REFLEX; Future - TSH W/REFLEX - COMPREHENSIVE METABOLIC PANEL Hypertensive heart disease with congestive heart failure, unspecified heart failure type (CMS/HCC) - furosemide 20 MG tablet; Take 1 tablet (20 mg total) by mouth daily. - COMPREHENSIVE METABOLIC PANEL; Future - TSH W/REFLEX; Future - TSH W/REFLEX - COMPREHENSIVE METABOLIC PANEL Secondary hyperparathyroidism (CMS/HCC) - PTH - INTACT; Future - PTH - INTACT - COMPREHENSIVE METABOLIC PANEL; Future - TSH W/REFLEX; Future - TSH W/REFLEX - COMPREHENSIVE METABOLIC PANEL Hypertensive urgency - CBC W/DIFF AUTOMATED; Future - Cancel: COMPREHENSIVE METABOLIC PANEL; Future - VENIPUNC ARM DRAW - PTH - INTACT; Future - Cancel: TSH W/REFLEX; Future - Cancel: TSH W/REFLEX - PTH - INTACT - Cancel: COMPREHENSIVE METABOLIC PANEL - CBC W/DIFF AUTOMATED - COMPREHENSIVE METABOLIC PANEL; Future - TSH W/REFLEX; Future - TSH W/REFLEX - COMPREHENSIVE METABOLIC PANEL Vitamin B12 deficiency - VITAMIN B-12; Future - VITAMIN B-12 Closed stable burst fracture of sixth thoracic vertebra with routine healing, subsequent encounter - HYDROcodone-acetaminophen 10-325 MG tablet; Take 1 tablet by mouth every 6 (six) hours as needed for Pain. Indications: Chronic Pain Vascular dementia without behavioral disturbance (CMS/HCC) Discussion/Summary: Medications discussed in significant detail. Med list updated accordingly and appropriate medications refilled. Will restart furosemide at this time. Can continue hydrocodone, but noted importance ofsparing use. Also recommended to obtain pill shoe planner that will limit her ability to take medicine and appropriately. Recommended patient to always come with family member for evaluations. Also recommended assisted living at this time, which they are not interested in at this time. We will have him recheck her blood pressures multiple times over the weekend and call back with results. Red flag symptoms discussed. Will obtain labs as per above. Obtain parathyroid scan as ordered. Patient follow-up in 1 month for reassessment. Patient and granddaughter verbalized understanding. I spent 67 minutes today reviewing the patient's medical record, obtaining history, performing an exam, documenting in the medical record and counseling and educating the patient/family/caregiver. Sanjeev Webster DO documented in this encounter Plan of Treatment Upcoming Encounters Date Type Department Care Team (Late st Contact Info) Description 04/14/2024 2:00 PM [employer] ELECTRICAL ENGINEERING OFFICER Office Visit [facility] Multispecialty Care - [facility] [address], [address] [place] [address] Julio Pulido MD [address] [place] [address] documented as of this encounter Goals Goal Patient Goal Type Associated Problems Recent Progress Patient-Stated? Author Health - patient able to perform ADLs independently General On track(2023 9:49 AM CDT) Dianne Corona, RN Note: 12/17/23: Patient stated she is independent with ASL's. documented as of this encounter Procedures Procedure Name Priority Date/Time Associated Diagnosis Comments TSH W/REFLEX Routine 10/18/2020 12:01 PM CDT Chronic obstructive pulmonary disease, unspecified COPD type (CMS/HCC HHS/HCC) Hypertensive heart disease with congestive heart failure, unspecified heart failure type (CMS/HCC HHS/HCC) Secondary hyperparathyroidism (CMS/HCC HHS/HCC) Hypertensive urgency PTH - INTACT Routine 10/18/2020 12:01 PM CDT Secondary hyperparathyroidism (CMS/HCC HHS/HCC) Hypertensive urgency VITAMIN B-12 Routine 10/18/2020 12:01 PM CDT Vitamin B12 deficiency COMPREHENSIVE METABOLIC PANEL Routine 10/18/2020 12:01 PM CDT Chronic obstructive pulmonary disease, unspecified COPD type (CMS/HCC HHS/HCC) Hypertensive heart disease with congestive heart failure, unspecified heart failure type (CMS/HCC HHS/HCC) Secondary hyperparathyroidism (CMS/HCC HHS/HCC) Hypertensive urgency CBC W/DIFF AUTOMATED Routine 10/18/2020 12:01 PM CDT Hypertensive urgency COLLECTION VENOUS BLOOD VENIPUNCTURE Routine 10/18/2020 11:21 AM CDT Hypertensive urgency documented in this encounter Results * TSH W/REFLEX (10/18/2020 12:01 PM CDT) Pathologist [facility] TSH 2.011 0.358 - 3.740 uIU/ML 10/20/2020 2:[address] 10/18/2020 12:0 1 PM CDT us Sanjeev Webster DO LABORATORY Final Re sult [facility] [place] [address], * (ABNORMAL) COMPREHENSIVE METABOLIC PANEL (10/18/2020 12:01 PM CDT) Pathologist [facility] SODIUM S/P/B 142 136 - 145 MMOL/L 10/20/2020 2:[address] POTASSIUM S/P/B 5.2(H) 3.5 - 5.1 MMOL/L 10/20/2020 2:[address] CHLORIDE S/P/B 105 98 - 107 MMOL/L 10/20/2020 2:05 [address] CO2 29.8 21 - 32 MMOL/L 10/20/2020 2:[address] GLUCOSE 121(H) 70 - 99 MG/DL 10/20/2020 2:05 [address] BUN 19 6 - 24 MG/DL 10/20/2020 2:05 PM [address] CREATININE S/P/B 1.28(H) 0.55 - 1.02 MG/DL 10/20/2020 2:[address] CALCIUM S/P/B 10.8(H) 8.4 - 10.5 MG/DL 10/20/2020 2:[address] BILIRUBIN TOTAL S/P/B 0.4 0.2 - 1.0 MG/DL 10/20/2020 2:[address] ALKALINE PHOSPHATASE S/P/B 84 55 - 142 U/L 10/20/2020 2:[address] AST 19 15 - 37 U/L 10/20/2020 2:05 PM [address] ALT 25 14 - 59 U/L 10/20/2020 2:05 PM [address] TOTAL PROTEIN S/P/B 7.0 6.4 - 8.2 G/DL 10/20/2020 2:[address] ALBUMIN S/P/B 4.1 3.4 - 5.0 G/DL 10/20/2020 2:[address] ANION GAP 7.2 5 - 15 MMOL/L 10/20/2020 2:05 PM [address] Comment:REFERENCE RANGE NOT ESTABLISHED OSMOLALITY (CALC) 298 MOSM/KG 10/20/2020 2:05 PM CDT [address] Comment:REFERENCE RANGE NOT ESTABLISHED EGFR NON-AFR. AMER. 41(L) >90 ML/MIN/1 .73 M2 10/20/2020 2:[address] EGFR AFR. AMER. 47(L) >90 ML/MIN/1 .73 M2 10/20/2020 2:05 PM CDT [address] GFR NOTES THE ESTIMATED GFR IS CALCULATED USING THE 2009 CKD-EPI EQUATION. THE FOLLOWING CATEGORIES FOR GRADING RENAL FUNCTION ARE RECOMMENDED BY THE INTERNATIONAL SOCIETY OF NEPHROLOGY (KDIGO 2012 CLINICAL PRACTICE GUIDELINE). 10/20/2020 2:05 PM [address] Comment: G1,NORMAL OR HIGH: >89 ml/min/1.73 m2 G2,MILDLY DECREASED: 60-89 ml/min/1.73 m2 G3A,MILDLY TO MODERATELY DECREASED: 45-59 ml/min/1.73 m2 G3B,MODERATELY TO SEVERELY DECREASED: 30-44 ml/min/1.73 m2 G4,SEVERELY DECREASED: 15-29 ml/min/1.73 m2 G5,KIDNEY FAILURE: <15 ml/min/1.73 m2 10/18/2020 12:0 1 PM CDT Sanjeev Webster DO LABORATORY Final Re sult Performing Organization Address [facility]/ZIP Co de Phone Number [address], [address] [address], [place] * VITAMIN B-12 (10/18/2020 12:01 PM CDT) VITAMIN B12 S/P/B 699 193 - 986 PG/ML 10/19/2020 6:40 AM CDT [facility] 10/18/2020 12:0 1 PM CDT Sanjeev Webster DO LABORATORY Final Re sult Performing Organization Address [facility] de Phone Number [facility] [address] [place] [address], [place] [phone] * (ABNORMAL) PTH - INTACT (10/18/2020 12:01 PM CDT) PTH 200.2(H) 18.4 - 80.1 PG/ML 10/19/2020 5:43 PM CDT [facility] 10/18/2020 12:0 1 PM CDT Sanjeev Webster DO LABORATORY Final Re sult Performing Organization Address City/[facility] Co de Phone Number [facility] [address] [place] [address], [place] [phone] * (ABNORMAL) CBC W/DIFF AUTOMATED (10/18/2020 12:01 PM CDT) [facility] WBC 5.2 4.0 - 10.8 x10'3/uL 10/19/2020 12:31 AM CDT [facility] RBC 3.64(L) 4.10 - 5.40 x10'6/uL 10/19/2020 12:31 AM CDT [facility] HGB 12.1 12.0 - 16.0 G/DL 10/19/2020 12:31 AM CDT [facility] HCT 38.6 36.0 - 47.0 % 10/19/2020 12:31 AM CDT [facility] MCV 106.0(H) 78.0 - 100.0 FL 10/19/2020 12:31 AM CDT [facility] MCH 33.2(H) 27.0 - 31.0 PG 10/19/2020 12:31 AM CDT [facility] MCHC 31.3(L) 33.0 - 36.0 G/DL 10/19/2020 12:31 AM T [facility] RDW 12.9 11.5 - 14.5 % 10/19/2020 12:31 AM CDT [facility] PLT 236 150 - 350 x10'3/uL 10/19/2020 12:31 AM CDT [facility] MPV 13.7(H) 7.4 - 10.4 FL 10/19/2020 12:31 AM T [facility] DIFFERENTIAL TYPE AUTOMATED DIFFERENTIAL 10/19/2020 12:31 AM T [facility] NEUTROPHILS % 66.6 % 10/19/2020 12:31 AM CDT [facility] LYMPHOCYTES % 20.5 % 10/19/2020 12:31 AM CDT [facility] MONOCYTES % 9.8 % 10/19/2020 12:31 AM CDT [facility] EOSINOPHILS % 1.9 % 10/19/2020 12:31 AM CDT [facility] BASOPHILS % 1.2 % 10/19/2020 12:31 AM CDT [facility] ABS. NEUTROPHILS 3.45 1.60 - 8.30 x10'3/uL 10/19/2020 12:31 AM CDT [facility] ABS. LYMPHOCYTES 1.06 0.80 - 4.70 x10'3/uL 10/19/2020 12:31 AM CDT [facility] ABS. MONOCYTES 0.51 0.00 - 1.50 x10'3/uL 10/19/2020 12:31 AM CDT [facility] ABS. EOSINOPHILS 0.10 0.00 - 0.40 x10'3/uL 10/19/2020 12:31 AM CDT [facility] ABS. BASOPHILS 0.06 0.00 - 0.20 x10'3/uL 10/19/2020 12:31 AM CDT [facility] 10/18/2020 12:0 1 PM CDT Sanjeev Webster DO LABORATORY Final Re sult [facility] [address] [place] [address], documented in this encounter Visit Diagnoses Diagnosis Chronic obstructive pulmonary disease, unspecified COPD type ([facility] HHS/HCC)- Primary Hypertensive heart disease with congestive heart failure, unspecified heart failure type ([facility] HHS/HCC) Secondary hyperparathyroidism ([facility]) Secondary hyperparathyroidism (of renal origin) Hypertensive urgency Unspecified essential hypertension Vitamin B12 deficiency Other B-complex deficiencies Closed stable burst fracture of sixth thoracic vertebra with routine healing, subsequent encounter Vascular dementia without behavioral disturbance ([facility]) Vascular dementia, uncomplicated documented in this encounter Additional Health Concerns Assessment Noted Time PHQ-9 Depression Total Score: 5 09/19/19 21 2:18 PM CDT documented as of this encounter Care Teams Master Machinist Relationship Specialty Start Date End Date Sanjeev Webster DO [address] [place] [address] PCP - General FAMILY PRACTICE 09/25/20 Dianne Johnson, RN [address] [place] [address] Brush Sander (Ambulatory) REGISTERED NURSE 08/14/20 documented as of this encounter
--- OUTSIDE RECORDS SUMMARY | 2024-03-15 01:10 | XMS_ITS | Encounter Summary ---
Author Organization [facility] Address [facility] [place] [address] [place] [address] Care Team Providers Care Insurance Representative Name Role Phone Dianne Johnson RN Unavailable [phone] Sanjeev Webster DO Primary Care Provider + Reason for Visit * Reason Comments Follow Up Pt is here for a wri st fracture Encounter Details Date Type Department Care Team (Late st Contact Info) Description 12/13/2020 2:00 PM CDT Office Visit [facility] Family & Internal Medicine [address] [address] Sanjeev Webster DO [facility] [place] [address] Follow Up (Pt is here for a wrist fracture) Social History Tobacco Use Types Packs/Day Years [...] Reading Time Taken Comments Blood Pressure 128/64 12/13/2020 2:10 PM CDT Pulse 64 12/13/2020 2:10 PM CDT Temperature 36.3 ??C (97.3 ??F) 12/13/2020 2:10 PM CD T Respiratory Rate 18 12/13/2020 2:10 PM CDT Oxygen Saturation 97% 12/13/2020 2:10 PM CDT Inhaled Oxygen Concentration - - Weight 87.5 kg (193 lb) 12/13/2020 2:10 PM CDT Height 162.6 cm (5' 4 ) 12/13/2020 2:10 PM CDT Body Mass Index 33.13 12/13/2020 2:10 PM CDT documented in this encounter Patient Instructions * Patient Instructions* Sanjeev Webster DO - 12/13/2020 2:[address] Fang's office (in [place], ) to find out when your next follow-up iswith him. documented in this encounter Progress Notes * Sanjeev Webster DO - 12/13/2020 2:00 PM CDT Images from the original note were not included. GENERAL OFFICE VISIT Encounter Date: 12/13/2020 Chief Complaint: 75-year-old female presents for Follow Up (Pt is here for a wrist fracture) HPI: Pt presents for follow-up on wrist fracture and wound. She did see ortho who is monitoring both fractures in the right and left wrist. She has seen wound care as well for her left arm well. Her woundis slowly improving. She is doing well today overall. Pt does have pain and is using pain medicine more frequently because of the breaks. Pt is needing flu shot today. She will need the 3rd dose of the COVID shot, but she wants to wait on this until she returns from [place]. Pt also needs a BMP to monitor her kidney function, as it was slightly decreased on recent check. Review of Systems Constitutional: Negative for fever. Musculoskeletal: See HPI Skin: See HPI Patient Active Problem List Diagnosis ??? Abnormal stress test ??? Bradycardia ??? Chronic anticoagulation ??? Coronary artery disease involving [place] coronary artery of [place] heart without angina pectoris ??? Diabetes mellitus [...] Gatherings with Friends and Family: ??? Attends Nondenominational Services: ??? Active Member of Clubs or [...] 09/05/2020 ??? Tetanus/Diptheria 07/22/2014 ??? Zoster (Zostavax) [address]16 Unt/0.65Ml 12/25/2015 Current Outpatient Medications Medication Sig [...] mg total) by mouth see administration instructions. [id number] tablet on , fridays and mondays 270 [...] mg total) by mouth see administration instructions. [id number] tablet on , fridays and mondays ??? [...] B Other (see comment) Objective: Filed Vitals: 12/13/20 1410 BP: 128/64 Pulse: 64 Resp: 18 Temp: 97.3 ??F (36.3 ??C) TempSrc: Temporal SpO2: 97% Weight: 87.5 kg (193 lb) Height: 5' 4 (1.626 m) Physical [...] has no wheezes. She has no rales. Musculoskeletal: Comments: Left wrist stable. Right wrist still in brace; left wound currently covered. Nursing note and vitals reviewed. Assessment & Plan: Radha was seen today for follow up. Diagnoses and all orders for this visit: Closed displaced fracture of base of fifth metacarpal bone of left hand with routine healing, subsequent encounter - HYDROcodone-acetaminophen 10-325 MG tablet; Take 1 tablet by mouth every 6 (six) hours as needed for Pain. Indications: Chronic Pain Stage 3b chronic kidney disease (CMS/HCC) - BASIC METABOLIC PANEL; Future - VENIPUNC ARM DRAW - BASIC METABOLIC PANEL Contusion of left upper extremity, subsequent encounter Need for immunization against influenza - [06428] INFLUENZA VIRUS VACCINE, SPLIT VIRUS 0.7 mL (SINGLE DOSE SYRINGE FLUZONE HIGH DOSE) Discussion/Summary: Continue follow-up with orthopedics and wound care. Will recheck BMP today. Will give flu shot today. Will determine follow-up based on results of above testing. Patient verbalized understanding. I spent 30 minutes today reviewing the patient's medical record, obtaining history, performing an exam, ordering medications, tests, and/or procedures, documenting in the medical record, counseling and educating the patient/family/caregiver and reviewing and communicating test results. 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 Author Health - patient able to perform ADLs independently General On track(2023 9:49 AM CDT) Dianne Corona RN Note: 12/17/23: Patient stated she is independent with ASL's. documented as of this encounter Procedures Procedure Name Priority Date/Time Associated Diagnosis Comments BASIC METABOLIC PANEL Routine 12/13/2020 2:37 PM CDT Stage 3b chronic kidney disease ([facility] HHS/HCC) COLLECTION VENOUS BLOOD VENIPUNCTURE Routine 12/13/2020 2:27 PM CDT Stage 3b chronic kidney disease ([facility]/HCC HHS/HCC) documented in this encounter Results * (ABNORMAL) BASIC METABOLIC PANEL (12/13/2020 2:37 PM CDT) SODIUM S/P/B 142 136 - 145 MMOL/L 12/13/2020 7:33 PM CDT [facility] [place] POTASSIUM S/P/B 4.9 3.5 - 5.1 MMOL/L 12/13/2020 7:33 PM CDT [facility] CHLORIDE S/P/B 105 98 - 107 MMOL/L 12/13/2020 7:33 PM CDT [facility] [place] CO2 31.3 21 - 32 MMOL/L 12/13/2020 7:33 PM CDT [facility] [place] GLUCOSE 98 70 - 99 MG/DL 12/13/2020 7:33 PM CDT [facility] [place] BUN 22 6 - 24 MG/DL 12/13/2020 7:33 PM CDT [facility] [place] CREATININE S/P/B 1.83(H) 0.55 - 1.02 MG/DL 12/13/2020 7:33 PM CDT [facility] [place] CALCIUM S/P/B 9.7 8.4 - 10.5 MG/DL 12/13/2020 7:33 PM CDT [facility] [place] ANION GAP 5.7 5 - 15 MMOL/L 12/13/2020 7:33 PM CDT [facility] [place] Comment:REFERENCE RANGE NOT ESTABLISHED OSMOLALITY (CALC) 297 MOSM/KG 12/13/2020 7:33 PM CDT [facility] [place] Comment:REFERENCE RANGE NOT ESTABLISHED EGFR NON-AFR. AMER. 26(L) >90 ML/MIN/1 .73 M2 12/13/2020 7:33 PM CDT [facility] [place] EGFR AFR. AMER. 31(L) >90 ML/MIN/1 .73 M2 12/13/2020 7:33 PM CDT [facility] [place] GFR NOTES THE ESTIMATED GFR IS CALCULATED USING THE 2009 CKD-EPI EQUATION. THE FOLLOWING CATEGORIES FOR GRADING RENAL FUNCTION ARE RECOMMENDED BY THE INTERNATIONAL SOCIETY OF NEPHROLOGY (KDIGO 2012 CLINICAL PRACTICE GUIDELINE). 12/13/2020 7:33 PM CDT MISA ASH[facility] Comment: G1,NORMAL OR HIGH: >89 ml/min/1.73 m2 G2,MILDLY DECREASED: 60-89 ml/min/1.73 m2 G3A,MILDLY TO MODERATELY DECREASED: 45-59 ml/min/1.73 m2 G3B,MODERATELY TO SEVERELY DECREASED: 30-44 ml/min/1.73 m2 G4,SEVERELY DECREASED: 15-29 ml/min/1.73 m2 G5,KIDNEY FAILURE: <15 ml/min/1.73 m2 12/13/2020 2:37 PM CDT us Sanjeev Webster DO LABORATORY Final Re sult [facility] [address] [facility] [place] [address], [place] [phone] documented in this encounter Visit Diagnoses Diagnosis Closed displaced fracture of base of fifth metacarpal bone of left hand with routine healing, subsequent encounter- Primary Stage 3b chronic kidney disease ([facility]/HCC [facility]/HCC) Contusion of left upper extremity, subsequent encounter Need for immunization against influenza Need for prophylactic vaccination and inoculation against influenza documented in this encounter Additional Health Concerns Assessment Noted Time PHQ-9 Depression Total Score: 0 11/23/19 21 12:03 PM CDT documented as of this encounter Care Teams Insurance Representative Relationship Specialty Start Date End Date Sanjeev Webster DO [address] [place] [address] PCP - General FAMILY PRACTICE 09/25/20 Dianne Johnson, RN [address] [place] [address] Jig Filler (Ambulatory) REGISTERED NURSE 08/14/20 documented as of this encounter
--- OUTSIDE RECORDS SUMMARY | 2024-03-15 01:10 | XMS_ITS | Encounter Summary ---
Author Organization [facility] Address [facility] [place] [address] [place] [address] Care Team Providers Care Putter In Name Role Phone Casey Johnson RN Unavailable [phone] Sanjeev Webster DO Primary Care Provider + Reason for Visit * Reason Onset Date Comments Care Management 12/06/2020 Encounter Details Date Type Department Care Team (Late st Contact Info) Description 12/06/2020 Patient Outreach [facility] Medical [facility] Family & Internal Medicine [address] [address] Casey Johnson RN [address] [place] [address] Care Management Social History Tobacco [...] Progress Notes * Casey Johnson, RN - 12/06/2020 2:51 PM CDT Chronic Care Management: 12/06/20: Attempted to contact patient without a response and unable to leave a message. 12/06/20: Left message for Izzy ([id number]) to have patient return CC phone call. 12/10/20: Contacted patient today. Patient Status: Patient stated her right wrist is giving her pain. Stated her copy worker left and went back to her previous client so she's been without a copy worker for 2 weeks now. Stated she tried to sweep her floors yesterday but it was too painful. Encouraged patient not to sweep her floors right now to give her hand time to heal. Stated her son is taking her to see her other son in [facility] this Thursday. Stated she is excited to see him since he built a new log cabin home. Stated she will contact thecompany when she returns to get help. Encouraged patient to call post anesthesia care unit nurse if she needs helpfacilitating it. Patient has post anesthesia care unit nurse's phone number in her phone. Stated she is scheduled for a follow up regarding her new hearing aids tomorrow in [place]. Stated last month she went to [facility] to get her hearing checked. Stated she received $5,000 worth of miracle ear hearing aids for free, 10 packs of batteries and a nice case. Stated the first 300 people on low income couldhave taken advantage of this opportunity but only 35 people showed up. Stated her friend told her about it. Confirmed patient's upcoming appointment with on 12/13/20 at 2:00 PM. Patient wrote down the appointment details to include address and phone number. Stated her sister will be taking her. Offered to contact patient's sister to give her the appointment details and she declined. Stated she wrote it down and will let her sister know about it. Stated tomorrow she is getting her hearing aids checked, Thursday she is scheduled to see wound clinic in [place] and she wanted to know when she was supposed to see Ortho. 12/10/20: Contacted Kristina from office to find out if patient kept her appointment on 11/29/20 and when her upcoming appointment is scheduled. Kristina stated she was seen on 11/29/20 and has an upcoming appointment on 01/07/21 at 2:15 PM. Requested office note from for upcoming appointment with on 12/13/20. Kristina stated the office is having issues with fax machine today but will fax report to post anesthesia care unit nurse once able by 12/13/20. Will await fax. 12/10/20: Contacted patient and she is aware of upcoming appointment with . She wrote downappointment details. Stated she lives in a double wide and she is having concerns as her electric bill is $911 and Jessica wants her to pay $500 this month. Stated her electric bill is always $300 permonth and not affordable. She had them check the meter and she turns lights off often. Patient was in tears as she discussed this information with post anesthesia care unit nurse. Informed patient that post anesthesia care unit nurse will send a referral to Bebe BHATTI) to help find patient resources for electric bill since she is on a fixed income. Patient appreciates the resources and will await Bebe's call. 12/11/20: Received fax from 's office. Faxed copy to at [phone]. Plan of Care: Follow up with on 12/13/20 or call before that time if needed. Referral sent to Bebe BHATTI) to help find resources for Jessica leach. Patient will call post anesthesia care unit nurse if she has issues setting up copy worker services again. Patient Goals: Goals Addressed This Visit's Progress [...] she has an appointment everyday this week. ??? Health - patient able to perform [...] dishes her back hurts. Reports Tylenol or Mullin helps a little. Message sent to Bebe BHATTI) to find out the status on copy worker. 10/23/20: Independent with ADL's. 12/10/20: Patient having issues sweeping etc since right hand fx. Stated she will contact scenios out if another copy worker will be helping her. Stated she prefers to wait until after she comes back from visiting her son in [place]. Upcoming Visit Appointments: Future Appointments Date Time Provider Department Center 12/13/2020 2:00 PM Sanjeev Webster, DO [facility]GFMMR[facility] 12/20/2020 12:40 PM Panda Moreno MD [facility] [place] [facility] 12/31/2020 12:00 PM [facility] AWV NURSE MGFMMRVL [facility] 12/31/2020 1:40 PM Sanjeev Webster DO [facility] 01/04/2021 10:30 AM ALEX NM INJ RM 2 [facility] ALEX 01/04/2021 10:45 AM ALEX NM CAM 1 [facility] 01/04/2021 12:30 PM ALEX NM CAM 1 [facility] 01/04/2021 2:30 PM ALEX NM CAM 1 SEON[facility] ALEX Quality care gaps: Health Maintenance Topic Date Due ??? Lipid Panel Never done ??? Diabetes: Retinopathy Eye Exam Never done ??? DEXA SCAN (GENERAL) Never done ??? Medicare Wellness Visit Never done ??? Zoster Vaccines (2 of 3) 02/19/2016 ??? Influenza Adult (1) 12/07/2020 ??? Hemoglobin A1C 2021 ??? DTaP, Tdap and Td Vaccines (3 - Td) 09/05/2030 ??? Pneumococcal ages 65 years and older Completed ??? COVID-19 Vaccine Completed ??? MENINGOCOCCAL VACCINE Aged Out Problem List: Patient Active Problem List Diagnosis ??? Abnormal stress test ??? Bradycardia ??? Chronic anticoagulation ??? Coronary artery disease involving [place] coronary artery of [place] heart without angina pectoris ??? Diabetes mellitus [...] mellitus (CMS/HCC) ??? PVD (peripheral vascular disease) (CMS/[facility]) Medications: Current Outpatient Medications [...] mg total) by mouth see administration instructions. [id number] tablet on , fridays and mondays 270 tablet 1 ??? warfarin 6 MG tablet Take 1 tablet (6 mg total) by mouth daily. 90 tablet 1 No current facility-administered medications for this visit. CASEY JOHNSON RN * Sanjeev Webster DO - 12/06/2020 2:51 PM CDT As of this writing, I have not received this. * Casey Johnson RN - 12/06/2020 2:51 PM CDT Images from the original note were not included. Contacted Amina at office to find out if fax received from yesterday morning. Aminastated she has the fax and will place it in 's mail box. documented in this encounter Plan of Treatment Upcoming Encounters Date Type Department Care Team (Late st Contact Info) Description 04/14/2024 2:00 PM INDUSTRIAL ARTS TEACHER Office Visit [facility] Multispecialty Care - [facility] [address] [facility], [address] [place] [phone] Julio Pulido MD [address] [place] [address] documented as of this encounter Goals Goal Patient Goal Type Associated Problems Recent Progress Patient-Stated? Author Health - patient able to perform ADLs independently General On track(2023 9:49 AM CDT) No Casey Johnson, RN Note: 12/17/23: Patient stated she is independent with ASL's. documented as of this encounter Visit Diagnoses Not on filedocumented in this encounter Additional Health Concerns Assessment Noted Time PHQ-9 Depression Total Score: 0 11/23/19 12:03 PM CDT documented as of this encounter Care Teams Putter In Relationship Specialty Start Date End Date Sanjeev Webster DO [address] [place] [address] PCP - General FAMILY PRACTICE 09/25/20 Casey Johnson, RN [address] [place] [address] Hybrid Powertrain Development Engineer (Ambulatory) REGISTERED NURSE 08/14/20 documented as of this encounter
--- OUTSIDE RECORDS SUMMARY | 2024-03-15 01:10 | XMS_ITS | Encounter Summary ---
Author Organization [facility] Address [facility] [place] [address] [place] [address] Care Team Providers Care Insulator Cutter And Former Name Role Phone Dianne Johnson RN Unavailable [phone] Sanjeev Webster DO Primary Care Provider + Reason for Visit * Reason Onset Date Comments Orders 09/25/2020 Encounter Details Date Type Department Care Team (Late st Contact Info) Description 09/25/2020 Telephone [facility] Medical Group Family & Internal Medicine [address] [address] Sanjeev Webster DO [facility] [place] [address] Orders Social History Tobacco Use [...] Progress Notes * Natalee Brown RN - 09/27/2020 2:17 PM CDT Called and spoke with patient informed patient we were putting in a new order for a swallow study. Patient was agreeable and verbalized understanding. Patient also gave verbal consent to talk to her Granddaughter- Neema and her sister- Shannon about her medical testing. Opportunity given for all questions to be answered, no further needs voiced at this time. LL-09/27/20 * Sanjeev Webster DO - 09/25/2020 4:38 PM CDT OK to place new order; place same order as was ordered by Dr. Leyva. Note okay about reaching out to family as long as we have permission from patient already. * Scarlett Guerrero MA - 09/25/2020 4:21 PM CDT Per [facility] Burgos with scheduling patient said she would call back to schedule and never did. Several messages are noted on the order. They will be happy to reach out to patient but the order is now too old to reinstate. New order would need to be entered and a note put on to reach out to sister or granddaughter if can not reach patient. * Sanjeev Webster DO - 09/25/2020 2:06 PM CDT Please reach out to ALEX to have them schedule pt for barium swallow that is already ordered by Dr. Adiel Leyva. documented in this encounter Plan of Treatment Upcoming Encounters Date Type Department Care Team (Late st Contact Info) Description 04/14/2024 2:00 PM OIL RAG WASHER Office Visit [facility] Multispecialty Care - [facility] [address] [facility], [address] [place] [address] Julio Pulido MD 3 [place] [address] documented as of this encounter Goals Goal Patient Goal Type Associated Problems Recent Progress Patient-Stated? Author Health - patient able to perform ADLs independently General On track(2023 9:49 AM CDT) No Dianne Johnson, RN Note: 12/17/23: Patient stated she is independent with ASL's. documented as of this encounter Visit Diagnoses Diagnosis Dysphagia- Primary Dysphagia, unspecified documented in this encounter Additional Health Concerns Assessment Noted Time PHQ-9 Depression Total Score: 5 09/19/19 21 2:18 PM CDT documented as of this encounter Care Teams Insulator Cutter And Former Relationship Specialty Start Date End Date Sanjeev Webster DO [address] [place] [address] PCP - General FAMILY PRACTICE 09/25/20 Dianne Johnson, RN [address] [place] [address] Retail Salesman (Ambulatory) REGISTERED NURSE 08/14/20 documented as of this encounter
--- OUTSIDE RECORDS SUMMARY | 2024-03-15 01:10 | XMS_ITS | Encounter Summary ---
Author Organization [facility] Address [facility] [address] [place] [address] Care Team Providers Care Drill Rig Operator Helper Name Role Phone Dianne Johnson RN Unavailable [phone] Sanjeev Webster DO Primary Care Provider + Encounter Details Date Type Department Care Team (Latest Contact Info) Description 12/07/2020 10:37 AM CDT - 12/07/2020 11:59 PM CDT Hospital Encounter [facility] [address] [place], [place] [id number] [place] [address] [facility] [address] [place] [address] Discharge Disposition: Home or Self [...] unspecified COPD type ([facility]) INHALE 2 PUFFS BY MOUTH [...] congestive heart failure, unspecified heart failure type ([facility]) Take 1 tablet (20 mg [...] st Contact Info) Description 04/14/2024 2:00 PM SLIDE FASTENER CHAIN ASSEMBLER Office Visit [facility] Group Multispecialty Care - [address], [address] [place] [address] Julio Pulido MD 3 [place] [address] documented as of this encounter Goals Goal [...] % jelly Topical, Once, 1 dose, On Thu12/07/20 at 1145 Given 12/07/2020 11:28 AM CDT 1 Tube documented in this encounter Additional Health Concerns Assessment Noted Time PHQ-9 Depression Total Score: 0 11/23/19 21 12:03 PM CDT documented as of this encounter Care Teams Drill Rig Operator Helper Relationship Specialty Start Date End Date Sanjeev Webster DO [address] [place] [id number] PCP - General FAMILY PRACTICE 09/25/20 Dianne Johnson, RN [address] [place] [address] Hospital Nurse Liaison (Ambulatory) REGISTERED NURSE 08/14/20 documented as of this encounter
--- OUTSIDE RECORDS SUMMARY | 2024-03-15 01:10 | XMS_ITS | Encounter Summary ---
Author Organization [facility] Address [facility]6 [facility] [place] [address] [place] [address] Care Team Providers Care Headmaster/Mistress Name Role Phone Dianne Johnson RN Unavailable [phone] Sanjeev Webster DO Primary Care Provider + Reason for Visit * Reason Onset Date Comments Error 12/05/2020 Encounter Details Date Type Department Care Team (Late st Contact Info) Description 12/05/2020 Telephone [facility] Medical [facility] Family & Internal Medicine [facility] [address] [place] [address] Sanjeev Webster DO [address] [place] [address] Error Social History Tobacco Use Types [...] as of this encounter Progress Notes * Alana Flood PharmD - 12/05/2020 3:52 PM CDT Error documented in this encounter Plan of Treatment Upcoming Encounters Date Type Department Care Team (Late st Contact Info) Description 04/14/2024 2:00 PM ANIMAL RESEARCHER Office Visit [facility] Multispecialty Care - [facility] [address] [facility], [address] [place] [phone] Julio Pulido MD [address] [place] [address] documented as of this encounter Goals Goal [...] and abscess of upper arm and forearm documented in this encounter Additional Health Concerns Assessment Noted Time PHQ-9 Depression Total Score: 0 11/23/19 21 12:03 PM CDT documented as of this encounter Care Teams Headmaster/Mistress Relationship Specialty Start Date End Date Sanjeev Webster DO [address] [place] [id number] PCP - General FAMILY PRACTICE 09/25/20 Dianne Johnson, RN [address] [place] [address] Software Development Coordinator (Ambulatory) REGISTERED NURSE 08/14/20 documented as of this encounter
--- OUTSIDE RECORDS SUMMARY | 2024-03-15 01:10 | XMS_ITS | Encounter Summary ---
Author Organization [facility] Address [address] [place] [address]. [place] [address] [place] [address] Care Team Providers Care Yarn Packer Name Role Phone Dianne Johnson RN Unavailable [phone] Sanjeev Webster DO Primary Care Provider + Encounter Details Date Type Department Care Team (Latest Contact Info) Description 11/22/2020 Travel Social History Tobacco Use Types Packs/Day [...] Contact Info) Description 04/14/2024 2:00 PM STEAM FITTER SUPERVISOR MAINTENANCE Office Visit [facility] Multispecialty Care - [address], [address] [place] [address] Julio Pulido MD [address] [place] [address] documented as of this encounter Goals Goal [...] documented as of this encounter Care Teams Yarn Packer Relationship Specialty Start Date End Date Sanjeev Webster DO [address] [place] [address] [id number] PCP - General FAMILY PRACTICE 09/25/20 Dianne Johnson, RN [address] [place] [address] Distribution Coordinator (Ambulatory) REGISTERED NURSE 08/14/20 documented as of this encounter
--- OUTSIDE RECORDS SUMMARY | 2024-03-15 01:10 | XMS_ITS | Encounter Summary ---
Author Organization [facility] Address [address] [place] [address]. [place] [address] [place] [address] Care Team Providers Care Glass Forming Crew Member Name Role Phone Dianne Johnson RN Unavailable [phone] Sanjeev Webster DO Primary Care Provider + Encounter Details Date Type Department Care Team (Latest Contact Info) Description 10/18/2020 Travel Social History Tobacco Use Types Packs/Day [...] st Contact Info) Description 04/14/2024 2:00 PM DUPLICATION SPECIALIST Office Visit [facility] Medical Group Multispecialty Care - [address], [address] [place] [address] Julio Pulido MD [address] [place] [address] documented as of this encounter Goals Goal [...] as of this encounter Care Teams Glass Forming Crew Member Relationship Specialty Start Date End Date Sanjeev Webster DO [address] [place] [id number] PCP - General FAMILY PRACTICE 09/25/20 Dianne Johnson, RN [address] [place] [address] Novelty Worker (Ambulatory) REGISTERED NURSE 08/14/20 documented as of this encounter
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
--- OUTSIDE RECORDS SUMMARY | 2024-03-15 01:11 | XMS_ITS | Encounter Summary ---
Author Organization [facility] Address [address] [place] [address]. [place] [address] [place] [address] Care Team Providers Care Services Engineer Name Role Phone Dianne Johnson RN Unavailable [phone] Trina Hoffman PROPERTY CLAIMS MANAGER Primary Care Provider [phone] Sanjeev Webster DO Primary Care Provider + Encounter Details Date Type Department Care Team (Latest Contact Info) Description 09/20/2020 Scan HEALTH INFO SRVCS Scanned, Documents Social [...] ( Contact Info) Description 04/14/2024 2:00 PM SOFTWARE PROJECT ENGINEER Office Visit [facility] Multispecialty [facility] [address] [facility], [address] [place] [id number] Julio Pulido MD [address] [facility] [place] [address] documented as of this encounter Goals Goal [...] documented as of this encounter Care Teams Services Engineer Relationship Specialty Start Date End Date Trina Hoffman NP [address] [place] [address] PCP - General NURSE PRACTITIONER 08/23/20 09/24/20 Sanjeev Webster DO [address] [place] [address] PCP - General FAMILY PRACTICE 09/25/20 Dianne Johnson, RN [address] [place] [address] In Store Marketer (Ambulatory) REGISTERED NURSE 08/14/20 documented as of this encounter
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
--- OUTSIDE RECORDS SUMMARY | 2024-03-15 01:11 | XMS_ITS | Encounter Summary ---
Author Organization [facility] Address [facility] [facility] [place] [address] [place] [address] Care Team Providers Care Thoracic Medicine Specialist Name Role Phone uJan Pablo Dominguez MD Primary Care Provider Dianne Wells RN Unavailable [phone] Reason for Visit * Reason Onset Date Comments Follow Up 08/21/2020 Encounter Details Date Type Department Care Team (Late st Contact Info) Description 08/21/2020 Patient Outreach [facility] Family & Internal Medicine [facility] [id number] [place] [address] Dianne Johnson, RN [address] [place] [address] Follow Up Social History Tobacco Use Types Packs/Day Years Used Date Smoking Tobacco: Never Smokeless Tobacco: Never Alcohol Use Standard Drinks/Week Comments Not Currently 0 (1 standard drink = 0.6 oz pur e alcohol) PHQ-2 Answer Date Recorded PHQ-2 Score - If the patient scores above 3, please move on to questions 3-9 2 12/12/2019 Comments Unknown Sex and Gender Information Value Date Recorded Sex Assigned at Not on file Legal Sex Female 11:18 AM CDT Gender Identity Not on file Sexual Orientation Not on file COVID-19 Exposure Response Date Recorded In the last month, have you been in contact with someone who was confirmed or suspected to have Coronavirus / COVID-19? No / Unsure 07/24/2020 1:05 PM CDT documented as of this encounter Progress Notes * Dianne Johnson RN - 08/21/2020 2:58 PM CDT D/C from [facility] on 08/17/20 after being admitted to [facility] in [place] on 08/09/20-08/11/20. TCM call back completed and TCM appointment with Trina CHOI on 08/23/20. Please address the followin. Patient needs to follow up with (Cardiology) in 1 week [phone]. Patient will call office to schedule an appointment and get PT/INR orders. Please obtain [facility] referral. Thank you. 2. FYI: Medical records from [facility] faxed to Trina blanco. 3. FYI: Patient will see as new PCP on 09/25/20. 4. Medication list not reconciled. Stated her granddaughter takes care of it and unavailable as shehas two jobs. Stated she will bring in an updated medication list. Thank you. documented in this encounter Plan of Treatment Upcoming Encounters Date Type Department Care Team (Late st Contact Info) Description 04/14/2024 2:00 PM EDUCATION NURSE Office Visit [facility] Multispecialty Care - [facility] [address] [facility], [address] [place] [address] Julio Pulido MD [address] [place] [address] documented as of this encounter Goals Goal Patient Goal Type Associated Problems Recent Progress Patient-Stated? Author Health - patient able to perform ADLs independently General On track(2023 9:49 AM CDT) Dianne Corona, RN Note: 12/17/23: Patient stated she is independent with ASL's. documented as of this encounter Visit Diagnoses Not on filedocumented in this encounter Care Teams Thoracic Medicine Specialist Relationship Specialty Start Date End Date Juan Pablo Dominguez MD PCP - General FAMILY MEDICINE SPORTS MEDICINE 11/15/19 08/22/20 Dianne Johnson, RN [address] [place] [address] Data Entry Associate (Ambulatory) REGISTERED NURSE 08/14/20 documented as of this encounter
--- OUTSIDE RECORDS SUMMARY | 2024-03-15 01:11 | XMS_ITS | Encounter Summary ---
Author Organization [facility] Address [address] [place] [address]. [place] [address] [place] [address] Care Team Providers Care Care Information Associate Name Role Phone Dianne Johnson RN Unavailable [phone] Trina Hoffman NP Primary Care Provider [phone] Reason for Visit * Reason Onset Date Comments Care Management 08/27/2020 Encounter Details Date Type Department Care Team (Late st Contact Info) Description 08/27/2020 Patient Outreach [facility] Family & Internal Medicine [address] [address] Eunice Reynolds, RN Care Management Social History Tobacco Use Types [...] as of this encounter Progress Notes * Eunice Renyolds RN - 08/27/2020 9:07 AM CDT Received med list from patient's niece. Med list faxed to JIMBO Mena's office for appt today at 11am. * Harshal Deal MA - 08/27/2020 9:07 AM CDT Received med list documented in this encounter Plan of Treatment Upcoming Encounters Date Type Department Care Team (Late st Contact Info) Description 04/14/2024 2:00 PM PROFESSOR OF FOOD BIOCHEMISTRY Office Visit [facility] Multispecialty Care - [facility] [address] [facility], [address] [place] [address] Julio Pulido MD [address] [place] [address] documented as of this encounter Goals Goal Patient Goal Type Associated Problems Recent Progress Patient-Stated? Author Health - patient able to perform ADLs independently General On track(2023 9:49 AM CDT) No Dianne Johnson, DALE Note: 12/17/23: Patient stated she is independent with ASL's. documented as of this encounter Visit Diagnoses Not on filedocumented in this encounter Care Teams Care Information Associate Relationship Specialty Start Date End Date Trina Hoffman NP [address] [place] [address] PCP - General NURSE PRACTITIONER 08/23/20 09/24/20 Dianne Johnson, RN [address] [place], [place] [address] V Belt Coverer (Ambulatory) REGISTERED NURSE 08/14/20 documented as of this encounter
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
--- OUTSIDE RECORDS SUMMARY | 2024-03-15 01:11 | XMS_ITS | Encounter Summary ---
Author Organization [facility] Address [facility] [place] [address] [place] [address] Care Team Providers Care Waffle Machine Operator Name Role Phone Dianne Johnson RN Unavailable [phone] Trina Hoffman NP Primary Care Provider [phone] Reason for Referral * Consultation (Urgent) - Closed Specialty Diagnoses / Procedures Referred By Ian malagon Referred To Contact CARDIOVASCULAR DISEASE Diagnoses H/O mechanical aortic valve replacement Trina Hoffman NP [address] [place] [address] Phone: tel: fax: Maurice Paredes MD [address] [address] Phone: tel: fax: Referral ID Status Reason Start Date Expiration Date V isits Requested Visits Authorized [id number] Closed Specialty Services 08/27/2020 03/08/2021 6 6 Scheduling Instructions Patient has an appt to see Dr. Paredes on 08/30/20 for follow-up as hospital stay Reason for Visit * Reason Onset Date Comments Referral Request 08/24/2020 Encounter Details Date Type Department Care Team (Late st Contact Info) Description 08/24/2020 Telephone [facility] Medical Group Family Medicine - [place] [address] [address] Trina Hoffman NP [address] [place] [address] Referral Request Social History Tobacco Use Types [...] st Contact Info) Description 04/14/2024 2:00 PM JOURNAL CLERK Office Visit [facility] Medical Group Multispecialty Care - [facility] [address] [facility], [address] [place] [address] Julio Pulido MD [address] [place] [address] Scheduled Referrals Name Type Priority Associated Diagnoses Orde r Schedule Ambulatory referral to Cardiology, Adult (OTHER) Referral Routine H/O mechanical aortic valve replacement Ordered: 08/24/2020 documented as of this encounter Goals Goal Patient Goal Type Associated Problems Recent Progress Patient-Stated? Author Health - patient able to perform ADLs independently General On track(2023 9:49 AM CDT) Dianne Corona RN Note: 12/17/23: Patient stated she is independent with ASL's. documented as of this encounter Visit Diagnoses Diagnosis H/O mechanical aortic valve replacement- Primary Heart valve replaced by other means documented in this encounter Care Teams Waffle Machine Operator Relationship Specialty Start Date End Date Trina Hoffman NP [address] [place] [address] PCP - General NURSE PRACTITIONER 08/23/20 09/24/20 Dianne Johnson RN [address] [place], [place] [address] Polyethylene Bag Machine Operator (Ambulatory) REGISTERED NURSE 08/14/20 documented as of this encounter
--- OUTSIDE RECORDS SUMMARY | 2024-03-15 01:11 | XMS_ITS | Encounter Summary ---
Author Organization [facility] Address [address] [place] [address]. [place] [address] [place] [address] Care Team Providers Care Residence Life Coordinator Name Role Phone Dianne Johnson RN Unavailable [phone] Trina oHffman RETREAD MOLD OPERATOR Primary Care Provider [phone] Reason for Visit * Reason Comments Image (SCAN) Encounter Details Date Type Department Care Team (Latest Contact Info) Description 08/30/2020 Scan HEALTH INFO SRVCS Scanned, Documents Image [...] have Coronavirus / COVID-19? No / Unsure 08/30/2020 10:57 AM CDT documented as of this encounter Plan of Treatment Upcoming Encounters Date Type Department Care Team ( Contact Info) Description 04/14/2024 2:00 PM SOAPSTONER Office Visit [facility] Medical Group Multispecialty Care - [address], [address] [place] [address] Julio Pulido MD [address] [place] [address] documented as of this encounter Goals Goal Patient Goal Type Associated Problems Recent Progress Patient-Stated? Author Health - patient able to perform ADLs independently General On track(2023 9:49 AM CDT) No Dianne Johnson, RN Note: 12/17/23: Patient stated she is independent with ASL's. documented as of this encounter Procedures Procedure Name Priority Date/Time Associated Diagnosis Comments IMAGE GENERIC 08/30/2020 documented in this encounter Results * IMAGE GENERIC (08/30/2020) Anatomical Region Laterality Modality Other 08/30/2020 Narrative 08/30/2020 Ordered by an unspecified provider. us Documents Scanned SCANNING Final Result documented in this encounter Visit Diagnoses Not on filedocumented in this encounter Care Teams Residence Life Coordinator Relationship Specialty Start Date End Date Trina Hoffman NP [address] [place] [address] PCP - General NURSE PRACTITIONER 08/23/20 09/24/20 Dianne Johnson, RN [address] [place] [address] News Analyst (Ambulatory) REGISTERED NURSE 08/14/20 documented as of this encounter
--- OUTSIDE RECORDS SUMMARY | 2024-03-15 01:11 | XMS_ITS | Encounter Summary ---
Author Organization [facility] Address [address] [place] [address]. [place], [place] [address] [place] [address] Care Team Providers Care Building Coordinator Name Role Phone Juan Pablo Dominguez MD Primary Care Provider Dianne Wells RN Unavailable [phone] Reason for Visit * Reason Comments Lab (SCAN) ECG (SCAN) CT (SCAN) Encounter Details Date Type Department Care Team ([facility] Contact Info) Description 08/08/2020 Scan HEALTH INFO SRVCS Scanned, Documents Lab (SCAN); ECG (SCAN); CT (SCAN) Social History Tobacco Use [...] Upcoming Encounters Date Type Department Care Team ([facility] Contact Info) Description 04/14/2024 2:00 PM LANDFILL GAS TECHNICIAN Office Visit [facility] Medical Group Multispecialty Care - [address] [place] [address] Julio Pulido MD [address] [place] [address] documented as of this encounter Procedures Procedure Name Priority Date/Time Associated Diagnosis Comments CT GENERIC 08/08/2020 ECG GENERIC (SCAN ORDER) 08/08/2020 ECG GENERIC (SCAN ORDER) 08/08/2020 OUTSIDE PT/INR (SCAN ORDER) 08/08/2020 OUTSIDE LAB (SCAN ORDER) 08/08/2020 documented in this encounter Results * OUTSIDE PT/INR (SCAN) (08/08/2020) 08/08/2020 Narrative 08/08/2020 Ordered by an unspecified provider. us Documents Scanned SCANNING Final Result * OUTSIDE LAB (SCAN) (08/08/2020) 08/08/2020 Narrative 08/08/2020 Ordered by an unspecified provider. us Documents Scanned SCANNING Final Result * CT GENERIC (08/08/2020) Anatomical Region Laterality Modality Other 08/08/2020 Narrative 08/08/2020 Ordered by an unspecified provider. us Documents Scanned SCANNING Final Result * ECG GENERIC (08/08/2020) 08/08/2020 Narrative 08/08/2020 Ordered by an unspecified provider. us Documents Scanned SCANNING Final Result * ECG GENERIC (08/08/2020) 08/08/2020 Narrative 08/08/2020 Ordered by an unspecified provider. us Documents Scanned SCANNING Final Result documented in this encounter Visit Diagnoses Not on filedocumented in this encounter Care Teams Building Coordinator Relationship Specialty Start Date End Date Juan Pablo Dominguez MD PCP - General FAMILY MEDICINE SPORTS MEDICINE 11/15/19 08/22/20 Dianne Johnson, RN [address] [place] [address] Buy Boat Operator (Ambulatory) REGISTERED NURSE 08/14/20 documented as of this encounter
--- OUTSIDE RECORDS SUMMARY | 2024-03-15 01:11 | XMS_ITS | Encounter Summary ---
Author Organization [facility] Address [facility] [place] [address] [place] [address] Care Team Providers Care Manager Data Center Name Role Phone Casey Johnson RN Unavailable [phone] Trina Hoffman WRAPPER STRIPPER Primary Care Provider [phone] Reason for Visit * Reason Onset Date Comments Care Management 08/24/2020 Encounter Details Date Type Department Care Team (Late st Contact Info) Description 08/24/[address] [facility] Family & Internal Medicine [address] [address] Casey Johnson, RN [address] [place] [address] Care Management Social History [...] Progress Notes * Casey Johnson RN - 08/24/2020 1:23 PM CDT Chronic Care Management: Patient Status: Granddaughter; Trinidad returned phone call. Stated she is out of town right now but she will email a copy of patient's medication list to companion caregiver over the weekend. Informed Trinidad to email it to Eunice HUNTER with the care coordination team. Once Eunice receives medication list she will fax it to Trina's office for upcoming appointment. Trinidad stated patient is scheduled to see on 08/30/20. Message sent to Trina WRAPPER STRIPPER office to obtain [facility] referral. Plan of Care: security coordinator will continue to follow. Patient Goals: Goals Addressed This Visit's Progress ??? Establish Plan for Symptom Monitoring On track ??? Health - patient able to perform ADLs independently On track Upcoming Visit Appointments: Future Appointments Date Time Provider Department Center 08/27/2020 11:00 AM Trina Hoffman NP [id number] 09/06/2020 9:00 AM ALEX NM INJ RM 2 [facility] ALEX 09/06/2020 9:15 AM ALEX NM CAM 1 [facility] ALEX 09/06/2020 11:00 AM ALEX NM CAM 1 [facility] ALEX 09/06/2020 1:00 PM ALEX NM CAM 1 [facility] ALEX 09/17/2020 1:20 PM Terrence Escudero MD [facility] 09/25/2020 1:20 PM Sanjeev Webster, [id number] Quality care gaps: Health Maintenance Topic Date Due ??? COVID-19 Vaccine (1) Never done ??? Diabetes: Retinopathy Eye Exam Never done ??? DTaP, Tdap and Td Vaccines (1 - Tdap) 05/23/1964 ??? DEXA SCAN (GENERAL) Never done ??? Zoster Vaccines (2 of 3) 02/19/2016 ??? Medicare Wellness Visit 11/20/2020 (Originally 2009) ??? Hemoglobin A1C 01/25/2021 ??? Lipid Panel 07/25/2021 ??? Influenza Adult Completed ??? Pneumococcal ages 65 years and older Completed ??? MENINGOCOCCAL VACCINE Aged Out Problem List: Patient Active Problem List Diagnosis ??? Abnormal stress test ??? Bradycardia ??? Chronic anticoagulation ??? Coronary artery disease involving [place] coronary artery of [place] heart without angina pectoris ??? Dyslipidemia associated [...] deficiency anemia, unspecified iron deficiency anemia type Medications: Current Outpatient Medications Medication Sig Dispense Refill ??? albuterol sulfate HFA 108 (90 Base) [...] TO CHECK GLUCOSE THREE TIMES DAILY ??? diclofenac sodium 1 % gel Apply 2 g topically 4 (four) times daily. 50 g 0 ??? Docusate Sodium (DSS) 100 MG Cap Take 200 mg by mouth 2 (two) times daily. ??? FEROSUL 325 (65 Fe) MG tablet Take 1 tablet (325 mg total) by mouth daily. 90 tablet 1 ??? furosemide 40 MG tablet Take 40 mg by mouth daily. ??? gabapentin 300 MG capsule Take 1 capsule (300 mg total) by mouth 2 (two) times daily. 180 capsule 0 ??? HYDROcodone-acetaminophen 10-325 MG tablet Take 1 tablet by mouth daily. Indications: Chronic Pain 30 tablet 0 ??? lisinopril 2.5 MG tablet Take [...] 2 (two) times daily as needed. ??? Sennosides 8.6 MG Cap Take 8.6 mg by mouth 2 (two) times daily as needed. ??? venlafaxine XR 150 MG 24 hr capsule Take 150 mg by mouth daily. ??? vitamin B-12 (CYANOCOBALAMIN) 1000 mcg tablet Take 1,000 mcg by mouth daily. ??? warfarin 1 MG tablet Take 1 mg by mouth 3 (three) times a week. ??? warfarin 5 MG tablet TAKE 1 TABLET BY MOUTH ONCE DAILY WITH 1 MG TABLET FOR TOTAL 6 MG DAILY ??? warfarin 6 MG tablet TAKE 1 TABLET (6 MG) ON Thursday AND THURSDAY. THEN TAKE 7 MG ON Thursday AND THURSDAY. No current facility-administered medications for this visit. CASEY JOHNSON RN documented in this encounter Plan of Treatment Upcoming Encounters Date Type Department Care Team (Late st Contact Info) Description 04/14/2024 2:00 PM CORPORATE COUNSELOR Office Visit [facility] Multispecialty Care - [facility] [address] [facility], [address] [place] [address] Julio Pulido MD 3 [place] [address] documented as of this encounter Goals Goal Patient Goal Type Associated Problems Recent Progress Patient-Stated? Author Health - patient able to perform ADLs independently General On track(2023 9:49 AM CDT) No Casey Johnson, RN Note: 10/10/24: Patient stated she is independent with ASL's. documented as of this encounter Visit Diagnoses Not on filedocumented in this encounter Care Teams Manager Data Center Relationship Specialty Start Date End Date Trina Hoffman NP [address] [place] [address] PCP - General NURSE PRACTITIONER 08/23/20 09/24/20 Casey Johnson, RN [address] [place] [address] Cooking Chef (Ambulatory) REGISTERED NURSE 08/14/20 documented as of this encounter
--- OUTSIDE RECORDS SUMMARY | 2024-03-15 01:11 | XMS_ITS | Encounter Summary ---
Author Organization [facility] Address [address] [place] [address]. [place] [address] [place] [address] Care Team Providers Care Underwriting Account Representative Name Role Phone Dianne Johnson RN Unavailable [phone] Trina Hoffman BUSINESS AND SERVICES INSTRUCTOR Primary Care Provider [phone] Encounter Details Date Type Department Care Team (Latest Contact Info) Description 09/17/2020 Travel Social History Tobacco Use Types Packs/Day [...] have Coronavirus / COVID-19? No / Unsure 09/17/2020 12:42 PM CDT documented as of this encounter Plan of Treatment Upcoming Encounters Date Type Department Care Team (Late st Contact Info) Description 04/14/2024 2:00 PM PIGS FEET FINISHER Office Visit [facility] Multispecialty Care - [address], [address] [place] [address] Julio Pulido MD [address] [place] [address] documented as of this encounter Goals Goal Patient Goal Type Associated Problems Recent Progress Patient-Stated? Author Health - patient able to perform ADLs independently General On track(2023 9:49 AM CDT) No Dianne Johnson, RN Note: 12/17/23: Patient stated she is independent with ASL's. documented as of this encounter Visit Diagnoses Not on filedocumented in this encounter Care Teams Underwriting Account Representative Relationship Specialty Start Date End Date Trina Hoffman NP [address] [place] [address] PCP - General NURSE PRACTITIONER 08/23/20 09/24/20 Dianne Johnson, RN [address] [place] [address] Bed And Breakfast Innkeeper (Ambulatory) REGISTERED NURSE 08/14/20 documented as of this encounter
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
--- OUTSIDE RECORDS SUMMARY | 2024-03-15 01:11 | XMS_ITS | Encounter Summary ---
Author Organization [facility] Address [address] [place] [address]. [place] [address] [place] [address] Care Team Providers Care Criminal Investigator Name Role Phone Juan Pablo Dominguez MD Primary Care Provider Dianne Wells RN Unavailable [phone] Encounter Details Date Type Department Care Team (Latest Contact Info) Description 08/11/2020 Scan HEALTH INFO SRVCS Scanned, Documents Social [...] st Contact Info) Description 04/14/2024 2:00 PM DESIGN LEADER Office Visit [facility] Multispecialty Care - [facility] [address] [facility], [address] [place] [address] Julio Pulido MD [address] [place] [address] documented as of this encounter Goals Goal Patient Goal Type Associated Problems Recent Progress Patient-Stated? Author Health - patient able to perform ADLs independently General On track(2023 9:49 AM CDT) No Dianne Johnson, RN Note: 12/17/23: Patient stated she is independent with ASL's. documented as of this encounter Visit Diagnoses Not on filedocumented in this encounter Care Teams Criminal Investigator Relationship Specialty Start Date End Date Juan Pablo Dominguez MD PCP - General FAMILY MEDICINE SPORTS MEDICINE 11/15/19 08/22/20 Dianne Johnson, RN [address] [place] [address] Credit Control Assistant (Ambulatory) REGISTERED NURSE 08/14/20 documented as of this encounter
--- OUTSIDE RECORDS SUMMARY | 2024-03-15 01:11 | XMS_ITS | Encounter Summary ---
Author Organization [facility] Address [facility] [place] [address] [place] [address] Care Team Providers Care Ham Smoker Name Role Phone Dianne Johnson RN Unavailable [phone] Trina Hoffman NIB FINISHER Primary Care Provider [phone] Reason for Visit * Reason Onset Date Comments Care Management 08/23/2020 Encounter Details Date Type Department Care Team (Late st Contact Info) Description 08/23/2020 Patient Outreach [facility] Family & Internal Medicine [address] [address] Dianne Johnson, RN [address] [place] [address] Care Management Social History Tobacco [...] Progress Notes * Dianne Johnson RN - 08/23/2020 8:06 AM CDT 08/23: Left message for Trinidad to return phone call to update patient's medication list. 08/23: Contacted patient to confirm her appointment with Trina this morning. Stated she has to reschedule. Contacted Donna with Trina's office and rescheduled patient's appointment for 08/27/20 at 11:00 am. Patient notified. Stated she had her PT/INR done this morning and 's office set this up for her. Encouraged to bring updated medication list on Thursday for appointment if CC unable to reach granddaughter. Patient verbalizes understanding. 08/23: Bebe (JEREMY) called and stated patient wants to see someone for hearing loss. Patient rescheduledappointment to see Trina on Thursday. Message sent to Trina's nursing team. According to [facility] medication list the following medications have been stopped: Cyanocobalamin 1,000 mcg Diclofenac sodium 1% gel Docusate sodium 100 mg Fluticasone propionate 50 mcg nasal spray Lactulose 0.67 gram/mL solution Lasix 40 mg Afrin (Oxymetazoline 0.05 % nasal spray Venlafaxine 150 mg replaced with Venlafaxine XR 150 mg [facility] changed how to take the following: Albuterol HFA 90 mcg inhale 1 puff every 4 hours as needed for wheezing Azelastine 137 mcg nasal spray use in each nostril daily Vitamin D3 1,000 units daily Ferrous sulfate 325 mg 1 tablet daily with breakfast Gabapentin 300 mg by mouth two times a day Hydrocodone-acetaminophen 10-325 mg take 2 tablets by mouth every 8 hours prn for pain Warfarin 6 mg daily Start taking these medications: Miralax 1 packet by mouth 2 times daily as needed for constipation Senna 8.6 mg take 1 tablet by mouth 2 times daily as needed for constipation Venlafaxine XR 150 mg take 1 capsule by mouth daily with breakfast * Harshal Deal MA - 08/23/2020 8:06 AM CDT Printed out both notes from CC and will make available for Thursday at patients appointment documented in this encounter Plan of Treatment Upcoming Encounters Date Type Department Care Team (Late st Contact Info) Description 04/14/2024 2:00 PM PROCESS CONTROL OPERATOR Office Visit [facility] Multispecialty Care - [facility] [address] [facility], [address] [place] [address] Julio Pulido MD [address] [place] [address] documented as of this encounter Goals Goal Patient Goal Type Associated Problems Recent Progress Patient-Stated? Author Health - patient able to perform ADLs independently General On track(2023 9:49 AM CDT) No Dianne Johnson, RN Note: 12/17/23: Patient stated she is independent with ASL's. documented as of this encounter Visit Diagnoses Not on filedocumented in this encounter Care Teams Ham Smoker Relationship Specialty Start Date End Date Trina Hoffman NP [address] [place] [address] PCP - General NURSE PRACTITIONER 08/23/20 09/24/20 Dianne Johnson, RN [address] [place] [address] Bookkeeping Clerks Supervisor (Ambulatory) REGISTERED NURSE 08/14/20 documented as of this encounter
--- OUTSIDE RECORDS SUMMARY | 2024-03-15 01:11 | XMS_ITS | Encounter Summary ---
Author Organization [facility] Address [address] [place] [address]. [place], [place] [address] [place] [id number] Care Team Providers Care Metal Can Inspector Name Role Phone Juan Pablo Dominguez MD Primary Care Provider Dianne Wells RN Unavailable [phone] Reason for Visit * Reason Onset Date Comments TCM 08/20/2020 [facility] 08/09-08/11- [facility] 08/11-08/17 Encounter Details Date Type Department Care Team (Late st Contact Info) Description 08/20/2020 Patient Outreach [facility] Family & Internal Medicine [address] [address] Dianne Johnson, RN [address] [place] [address] TCM ([facility] 08/09-08/11- [facility] 08/11-08/17) Social History Tobacco Use Types Packs/Day Years [...] Progress Notes * Dianne Johnson RN - 08/20/2020 7:50 AM CDT Images from the original note were not included. Follow up call to patient post hospitalization Patient admitted to [facility] in [place] on 08/09/20 for headaches and dizziness. D/C on 08/11/20 and transferred to [facility] until 08/17/20 for therapy. Discharge date: 08/17/20 from [facility]. Date of Contact: 08/21/20 Description of Hospital Course: See [facility] hospital course: Hospital Course: Initially to [facility] for headaches. 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 ?? 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 ??Transferred to [facility] [place]. Initial troponin 0.038 but initial EKG was unremarkable.. ??Developed some shortness of breath on ambulation, repeat EKG with flipped T-waves in the precordial leads, biphasic T-wave in 3 and 4, repeat troponin 0.086 after 6 hour. ??History of mechanical aortic valve placement in 2003, on Coumadin since, INR 1.2. ??Neurosurgery consulted recommended brain MRI, cerebral angiogram, echo. ??MRI brain unremarkable for acute ischemic stroke. ??Cardiology consulted for subtherapeutic INR. ??EKG sinus rhythm of 66, 1st degree AV block nonspecific IVCD, QRS 144. On telemetry sinus rhythm appearedbundle-branch block with artifact. ??Echo EF 50-55% LVH septal dyssynergy most likely due to bundle-branch block mechanical aortic valve with mild stenosis and regurgitation. ?Cerebral angiogram revealed small saccular aneurysm originating from the right MCA bifurcation, measuring 3.5 x 3.2 mm and has 2.2 mm wide neck. ??No intervention indicated, continue observation. ??Patient hemodynamically and clinically stabilized transferred to [facility] for further rehab. Has completed COVID-19 vaccine??series.?? Patient lives in a mobile home alone. ??Independent in ADLs, IADLs, still drives. ??Occasionally uses walker. The patient has been participating in therapy, improved quickly with her strength and endurance. VAZQUEZ on CPAP History of VAZQUEZ, on CPAP. History of mechanical aortic valve replacement History of??[facility]??mechanical aortic valve, placed into a??2003. On Coumadin??6 mg. Repeat PT/INR pending at the time of the note. Last PT/INR 08/15/20 1.5. Recommend f/u PT/INR 08/20 with results to Cardiology Patient completed rehab at [facility] and D/C home [facility] (08/09-08/11): Hospital Course from [facility]. See below: Pertinent Labs: See Care everywhere. Pertinent Procedures/Imaging performed while inpatient: See Care Every where. Vaccines Given While Inpatient: no Discharge Disposition: Home Any follow up appointments needed to be scheduled: yes - in 1 week, and (Cardiology) in 1 week [phone]. Patient will call office to schedule an appointment and get PT/INR orders. Future Appointments Date Time Provider Department Center 09/06/2020 9:00 AM ALEX NM INJ RM 2 [facility] 09/06/2020 9:15 AM ALEX NM CAM 1 [facility] 09/06/2020 11:00 AM ALEX NM CAM 1 [facility] 09/06/2020 1:00 PM ALEX NM CAM 1 [facility] 09/13/2020 8:00 AM Juan Pablo Dominguez MD [id number] [id number] Referrals needed: yes - Referral to Any follow up labs/imagining needed: yes - PT/INR on 08/20/20. Patient stated she did not get done at this time. Have lab/imaging orders been placed: Yes- patient stated she has a standing order. Allergies: Allergies Allergen Reactions ??? Bacitracin Other (see comment) ??? Benzalkonium Other (see comment) ??? Gramicidin Other (see comment) ??? Hydrocortisone Other (see comment) ??? Neomycin Other (see comment) ??? Polymyxin B Other (see comment) Medications: Outpatient medications have not been reconciled with hospital discharge list. Current Outpatient Medications Medication Sig Dispense Refill [...] (four) times daily. 50 g 0 ??? DOK 100 MG capsule TAKE 1 CAPSULE BY MOUTH TWICE DAILY NEEDED ??? FEROSUL 325 (65 Fe) MG tablet Take 1 tablet (325 mg total) by mouth daily. 90 tablet 1 ??? fluticasone propionate 50 MCG/ACT nasal spray 2 sprays by Each Nostril route daily. ??? furosemide 40 MG tablet Take 40 mg by mouth daily. ??? gabapentin 300 MG capsule Take 1 capsule (300 mg total) by mouth 2 (two) times daily. 180 capsule 0 ??? HYDROcodone-acetaminophen 10-325 MG tablet Take 1 tablet by mouth daily. Indications: Chronic Pain 30 tablet 0 ??? lactulose 10 GM/15ML solution Take 15 mLs (10 g total) by mouth 2 (two) times daily. May start with one time daily for 2 days then increase to two times daily if not the desired effect 300 mL 0 ??? lisinopril 2.5 MG tablet Take [...] 1,000 mcg by mouth daily. ??? warfarin 6 MG tablet TAKE 1 TABLET (6 MG) ON Thursday AND THURSDAY. THEN TAKE 7 MG ON Thursday AND THURSDAY. No current facility-administered medications for this visit. Discontinued Medications: Cyanocobalamin, diclofenac, docusate sodium, fluticasone, lactulose, lasix 40 mg, afrin and venlafaxine 150 mg. Does patient have difficulty affording medication: No Do any medications need refilled: No Does patient have access to care and services (rides, etc)? Yes Patient Status: (Including education, discharge instructions, s/sx to infection, and when to seek medical attn) Patient denies issues with dizziness, syncopal episodes or lightheadedness. Stated she continues toget headaches when she sits in certain chairs. Stated it effects my neck and back. Reports using a cane or walker every once in a while to ambulate. Stated she has a life line but needs to use itmore often. Encouraged patient to use her lifeline. Educated patient on fall risk prevention. Stated she has a shower chair, grab bar's. Keeps home well lit and no clutter. Patient stated her granddaughter fixes her pill kit planner and she is not available to talk to CC since she has two jobs and she is not available. Patient is agreeable to bring in an updated medication list at upcoming appointment. Stated her granddaughter purchased a pill kit planner that makes noise in the morning and evening when she is due for medications. Stated it's very nice. Patient stated she hasn't made an appointment to see (Gate Mortiser Operator) at this time. Informed patient she needs a 1 week follow up appointment and she will need an [facility] referral. Reviewed D/C summary from [facility]. Patient was supposed to get a PT/INR yesterday and results sent to . Patient stated she has a standing order but monitored her PT/INR's. Stated she prefers the PCP monitor. Informed patient that is no longer in [facility] office. Patient is agreeable to see anew PCP in [place]. Patient stated with the new PCP she is wanting to discuss hearing devices. Stated she had a hearing test over a year ago but doesn't remember where she had it done. Patient stated she would like a floorworker to help mop her wooden floors. Stated she has trouble mopping her floors. Referral sent to [facility]. 08/21: Scheduled patient an appointment to see Trina CHOI on 08/23/20 at 10:00 am. 08/21: Contacted [facility] in [place]. Scheduled appointment with on 09/25/20 @ 1:[address] [place] [address]. # [phone]. Notified patient. Patient requesting appointment information for be mailed to her home. Information mailed. Informed patient to contact [facility] to inform she will have a new PCP on 09/25/20. Patient verbalizes understanding. Goals ??? Establish Plan for Symptom Monitoring ??? Health - patient able to perform ADLs independently Plan of Care: Follow up with Trina CHOI on 08/23/20 at 10:00 am or call before that time if needed. Referral sent to [facility] for floorworker resources. documented in this encounter Plan of Treatment Upcoming Encounters Date Type Department Care Team (Late st Contact Info) Description 04/14/2024 2:00 PM ABRASIVE WHEEL MOLDER Office Visit [facility] Multispecialty Care - [facility] [address] [facility], [address] [place] [id number] Julio Pulido MD [address] [place] [address] documented as of this encounter Goals Goal Patient Goal Type Associated Problems Recent Progress Patient-Stated? Author Health - patient able to perform ADLs independently General On track(2023 9:49 AM CDT) Dianne Corona, RN Note: 12/17/23: Patient stated she is independent with ASL's. documented as of this encounter Visit Diagnoses Not on filedocumented in this encounter Care Teams Metal Can Inspector Relationship Specialty Start Date End Date Juan Pablo Dominguez MD PCP - General FAMILY MEDICINE SPORTS MEDICINE 11/15/19 08/22/20 Dianne Johnson, RN [address] [place] [address] Copying Machine Repairer (Ambulatory) REGISTERED NURSE 08/14/20 documented as of this encounter
--- OUTSIDE RECORDS SUMMARY | 2024-03-15 01:11 | XMS_ITS | Encounter Summary ---
Author Organization [facility] Address [address] [place] [address]. [place] [address] [place] [address] Care Team Providers Care Jalousie Installer Name Role Phone JohnsonEdwigeDianne R RN Unavailable [phone] Trina Hoffman HEAT TREATING FURNACE TENDER Primary Care Provider [phone] Reason for Visit * Reason Comments TCM [facility], hospital f/u Encounter Details Date Type Department Care Team (Late st Contact Info) Description 08/30/2020 11:00 AM CDT Office Visit [facility] Family Medicine - [place] [address] [facility] [address] [place] [phone] Trina Hoffman, HEAT TREATING FURNACE TENDER [address] [place], [place] [address] TCM ([facility], [facility] f/u) Social History Tobacco Use Types Packs/Day Years [...] Sign Reading Time Taken Comments Blood Pressure 146/67 08/30/2020 11:04 AM CDT Pulse 73 08/30/2020 11:04 AM CDT Temperature 35.9 ??C (96.7 ??F) 08/30/2020 11:04 AM C DT Respiratory Rate 18 08/30/2020 11:04 AM CDT Oxygen Saturation 96% 08/30/2020 11:04 AM CDT Inhaled Oxygen Concentration - - Weight 92.5 kg (204 lb) 08/30/2020 11:04 AM CDT Height 162.6 cm (5' 4 ) 08/30/2020 11:04 AM CDT Body Mass Index 35.02 08/30/2020 11:04 AM CDT documented in this encounter Patient Instructions * Patient Instructions* Trina Hoffman NP - 08/30/2020 11:00 AM CDT Radha, please head to Dr. Paredes's office from here to have your INR checked. I will order you a lidocaine patch to apply to your neck. Don't put a heating pad over your pain patch. It can burn your skin. Please notify our office what physical therapy center you would like to go for your neck pain. I will order you an x-ray of your neck as well to have done documented in this encounter Progress Notes * Trina Hoffman NP - 08/30/2020 11:00 AM CDT Reason for Visit: TCM ([facility], [facility] f/u) History of Present Illness: Radha is a 75-year-old female with history of hyperlipidemia, GERD, depression, history of aortic valve replacement in 2003 requiring Coumadin therapy, hx of A-Fib, dementia who was a previous patient of Dr. Dominguez presents to office for TCM follow-up. Patient presents to office today by herself. On August 07 patient presented to [place] [facility] due to having complaints of dizziness and headaches.??Apparently patient was having stroke like symptoms for approximately 3 days before going into the hospital.?? Patient states she had a near syncopal episode in addition to an unsteady gait.?? Patientlives at home by herself.?? 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 Patient was going to be transferred over to neurosurgery at [facility] or [place] however there were no beds available so she was sent to [facility] in [place]. Patient was found to have an INR of 1.2 when she presented to the ER.?? Workup also revealed ainitial troponin of 0.038, but initial EKG was unremarkable, however she stayed in the ER for approximately 28 hr, and did have some shortness of breath on ambulation to the bathroom, and a repeat EKG showed flipped T-waves in the precordial leads, biphasic T-waves in leads 3 and 4, repeat troponinwas 0.086 after 6 hr. Patient was discharged to [facility] for rehab PT/OT and then discharged home. ??Concerning issues as patient lives alone and is not very well aware of her medications.?? Patient's INR has not been therapeutic it appears in the past.?? Pt states to me today that her granddaughter Neema is helping pt with her medications Pt's online communications manager is Dr. Paredes who is now managing her Coumadin. Pt has a standing order for weekly INR checks at Dr. Paredes's office. Pt is supposed to be taking 6mg daily. Pt is due for INR check today. Will go ahead and check at our office while she is here. Pt reports she is doing well but for the past four days she has been suffering from right sided neck pain and stiffness. Denies any known injury or trauma. Pt is on chronic Hydrocodone 10/325 daily that she states is not helping. Pt has also used heat without relief. Denies associated headache or numbness or tingling radiating down her arms. Pt denies any recent falls. States has not fallen in several years. Pt states she does walk with a cane or walker but pt did not present to office with one today. Pt will be establishing primary care with Dr. Webster due to pt having [facility]. Apt is on 09/25/20 Medications: Current Outpatient Medications: ??? acetaminophen 325 [...] tablets by mouth., Disp: , Rfl: ??? lisinopril 2.5 MG tablet, Take 2.5 mg by mouth daily., Disp: , Rfl: ??? OMEPRAZOLE 20 MG capsule, TAKE 1 CAPSULE BY MOUTH ONCE DAILY 30 MINUTES TO 1 HOUR BEFORE A MEAL, Disp: 90 capsule, Rfl: 0 ??? polyethylene glycol 17 GM/SCOOP [...] TOTAL 6 MG DAILY, Disp: , Rfl: ??? oxymetazoline 0.05 % nasal spray, Not to exceed 3 days. May use for 3 days then refrain for 3 days and repeat as needed., Disp: 20 mL, Rfl: 0 Allergies Allergen Reactions ??? Bacitracin Other (see [...] frequency, hematuria and urgency. Musculoskeletal: Positive for joint pain (chronic ) and myalgias. Negative for back pain, falls andneck pain. Skin: Negative for itching and rash. Neurological: Negative for dizziness, tingling, tremors, sensory change, speech change, focal weakness, seizures, loss of consciousness, weakness and headaches. Endo/Heme/Allergies: Negative for environmental allergies and polydipsia. Bruises/bleeds easily (oncoumadin thearpy ). Psychiatric/Behavioral: Negative for depression, hallucinations, memory loss, substance abuse and suicidal ideas. The patient is not nervous/anxious and does not have insomnia. Physical Exam Constitutional: She is oriented to person, place, and time. She appears well- developed and well-nourished. No distress. Pt appears to be in discomfort. Grabbing her neck. Eyes: Pupils are equal, round, and reactive to light. EOM are normal. Neck: No JVD present. Carotid bruit is not present. Cardiovascular: Normal rate, regular rhythm and normal heart sounds. Pulmonary/Chest: Effort normal and breath sounds normal. No respiratory distress. She has no wheezes. Abdominal: Soft. Bowel sounds are normal. Musculoskeletal: Cervical back: No edema. Muscular tenderness present. No spinous process tenderness. Decreased range of motion. Neurological: She is alert and oriented to person, place, and time. Skin: Skin is warm and dry. Scattered bruising to arms. Psychiatric: She has a normal mood and affect. Filed Vitals: 08/30/20 1104 BP: 146/67 Pulse: 73 Resp: 18 Temp: 96.7 ??F (35.9 ??C) TempSrc: Temporal SpO2: 96% Weight: 92.5 kg (204 lb) Height: 5' 4 (1.626 m) Results for orders placed or performed in visit on 08/30/20 PROTIME/INR, FINGERSTICK Result Value Ref Range INR, WHOLE BLOOD 2.70 Assessment/Recommendations/Plan 1. Hospital discharge follow-up -Pt doing well since hospital discharge. Pt did not state that she had any specialtis she was to follow up with after discharge besides pcp and cardiology 2. Coronary artery disease involving chilkoot coronary artery of chilkoot heart without angina pectoris Pt's goal to have INR between 2.5 and 3.5. Pt is currently on 6mg of Coumadin daily. This is now being monitored by her online communications manager Dr. Paredes weekly at their office. - PROTIME/INR, FINGERSTICK 3. Neck pain Will order x-ray of her neck and provide pt with lidocaine patch to affected area. Pt already is onchronic pain medication Hydrocodone so I do not feel comfortably providing pt a muscle relaxer in addition at this time. Will order pt a lidocaine patch to apply to affected area and pt can utilize any other otc medicated ointments Pt would oswald to go to physical therapy. She states there is a physical therapy office in [place] she would like to go too but cannot remember the name. States she will call back and notify us where she would like to go. Encourage massage. - XR CERV SPINE 3V; Future - lidocaine 5 %; Apply pain patch to affected area. Change after 12 hours. Dispense: 6 patch; Refill: 0 Follow up: new pcp on 09/25 TRINA HOFFMAN NP 08/30/2020 12:19 PM Cosigned by Marquis Edmonds MD at 08/30/2020 1:22 PM CDT documented in this encounter Plan of Treatment Upcoming Encounters Date Type Department Care Team (Late st Contact Info) Description 04/14/2024 2:00 PM WATER METER MECHANIC Office Visit [facility] Multispecialty Care - [facility] [address] [facility], [address] [place] [address] Julio Pulido MD [address] [place] [address] documented as of this encounter Goals Goal Patient Goal Type Associated Problems Recent Progress Patient-Stated? Author Health - patient able to perform ADLs independently General On track(2023 9:49 AM CDT) Dianne Corona, RN Note: 12/17/23: Patient stated she is independent with ASL's. documented as of this encounter Procedures Procedure Name Priority Date/Time Associated Diagnosis Comments PROTHROMBIN TIME, FINGERSTICK Routine 08/30/2020 Coronary artery disease involving chilkoot coronary artery of chilkoot heart without angina pectoris documented in this encounter Results * PROTIME/INR, FINGERSTICK (08/30/2020) INR WHOLE BLOOD 2.70 [address], [place] 08/30/2020 us Trina Hoffman HEAT TREATING FURNACE TENDER LABORATORY Final Res ult [address] [place] [address] [address] [place] [address], documented in this encounter Visit Diagnoses Diagnosis Coronary artery disease involving chilkoot coronary artery of chilkoot heart without angina pectoris- Primary Hospital discharge follow-up Other follow-up examination Neck pain Cervicalgia documented in this encounter Care Teams Jalousie Installer Relationship Specialty Start Date End Date Trina Hoffman, JIMBO [address] [place] [address] PCP - General NURSE PRACTITIONER 08/23/20 09/24/20 Dianne Johnson, RN [address] [place] [address] Housekeeper Child Care (Ambulatory) REGISTERED NURSE 08/14/20 documented as of this encounter
--- OUTSIDE RECORDS SUMMARY | 2024-03-15 01:11 | XMS_ITS | Encounter Summary ---
Author Organization [facility] Address [facility] [place] [address] [place] [address] Care Team Providers Care Lip Cutter And Scorer Name Role Phone Dianne Johnson RN Unavailable [phone] Trina Hoffman LIFT TRUCK OPERATOR Primary Care Provider [phone] Reason for Visit * Reason Comments New Patient left foot * Consultation (Routine) - Closed Specialty Diagnoses / Procedures Referred By Ian malagon Referred To Contact ORTHOPAEDIC SURGERY / ORTHOPAEDICS Diagnoses Metatarsalgia of left foot Hallux valgus (acquired), left foot Juan Pablo Dominguez MD McCarthy, Kevin J, MD Phone: tel: fax: Referral ID Status Reason Start Date Expiration Date V isits Requested Visits Authorized [id number] Closed Specialty Services 08/14/2020 03/08/2021 6 6 Encounter Details Date Type Department Care Team (Latest Contact Info) Description 09/17/2020 1:20 PM CDT Office Visit [facility] Medical Group Multispecialty Care - [facility] 3 [facility], [address] [place] [address] Xi Briseno MD [address] [place] [address] New Patient (left foot) Social History Tobacco Use Types Packs/Day Years [...] Sign Reading Time Taken Comments Blood Pressure 167/85 09/17/2020 1:05 PM CDT Pulse 70 09/17/2020 1:05 PM CDT Temperature 36 ??C (96.8 ??F) 09/17/2020 1:05 PM CDT Respiratory Rate - - Oxygen Saturation 93% 09/17/2020 1:05 PM CDT Inhaled Oxygen Concentration - - Weight 90.2 kg (198 lb 14.4 oz) 09/17/2020 1:05 PM CDT Height 162.6 cm (5' 4 ) 09/17/2020 1:05 PM CDT Body Mass Index 34.14 09/17/2020 1:05 PM CDT documented in this encounter Progress Notes * Xi Briseno MD - 09/17/2020 1:20 PM CDT Images from the original note were not included. Office Visit Reason for Visit: New Patient (left foot) History of Present Illness: She is here for evaluation of her right foot and left forefoot. Her primary she says is the right forefoot. She has pain under the forefoot. This is mostly in the area of the third and fourth metatarsal heads. She also has toe deformities on the right side but these are not as painful. On the left side she has pain mostly at the second toe at the dorsal aspect of the PIP joint. She is diabetic. She says she has no numbness in her feet. The pain both at the right forefoot plantarly and left second toe has gotten worse in recent years. Vitals: Filed Vitals: 09/17/20 1305 BP: (!) 167/85 Pulse: 70 Temp: 96.8 ??F (36 ??C) SpO2: 93% Weight: 90.2 kg (198 lb 14.4 oz) Height: 5' 4 (1.626 m) Physical Exam: Physical Exam Constitutional: She is oriented to person, place, and time. She appears well- developed and well-nourished. HENT: Head: Normocephalic. Eyes: EOM are normal. Cardiovascular: Intact distal pulses. Pulmonary/Chest: Effort normal. No respiratory distress. Neurological: She is alert and oriented to person, place, and time. Psychiatric: She has a normal mood and affect. Ortho: On exam of the left foot she has varicosities diffusely. Palpable dorsalis pedis pulse. The posterior tibialis pulses faintly palpable. She has fixed a hammertoe deformity of 2 3 and 4. These second metatarsophalangeal joint is dislocated. Moderate hallux valgus deformities well. Nontender to palpation at the hallux. She is tender over the dorsum of the second toe PIP joint. I am not quite able to reduce the MTP joint passively. Small areas of callus formation under the metatarsal heads on the left but no pain. No significant gastrocnemius contracture. No numbness to light touch. Exam the right foot she has significant callus formation especially under the second and fourth metatarsal heads. Maximally tender under the fourth metatarsal head. Fixed hammertoe deformities of thesecond and third toes. These are nontender to palpation. Hallux valgus deformity as well. Dorsalis pedis pulses palpable. Varicose veins over the dorsum of the foot. OXR FOOT STANDING LT 3V PROCEDURE: OXR FOOT STANDING LT 3V VIEWS: 3 DATE: 09/17/20 CLINICAL INDICATION: Lt foot pain FINDINGS: 3 views left foot. Weightbearing AP, oblique, lateral. Moderate hallux valgus deformity. Some incongruency to the first metatarsophalangeal joint. Extension deformities of the second and third metatarsophalangeal joints. The second metatarsophalangeal joint may be dislocated. Calcification of the posterior tibial artery on the lateral radiograph. IMPRESSION: Forefoot deformities as described. Assessment: Severe hammertoe deformities of the left second, third, fourth toes Hallux valgus deformity left foot Forefoot deformities on the right side with metatarsal overload. Plan: We talked about surgery treatment for this. I think she will end up needing surgical treatment for the left forefoot with hammertoe repairs. The hallux valgus deformity is asymptomatic and hopefully we can leave that alone. On the right side I think orthotics are the main treatment. Follow-up in clinic after she has had a chance to get her orthotics fabricated. Procedures Summary: There are no diagnoses linked to this encounter. ROS: ROS Medications: Current Outpatient Medications: ??? acetaminophen 325 MG tablet, Take 650 mg by mouth., Disp: , Rfl: ??? albuterol sulfate HFA 108 (90 Base) MCG/ACT inhaler, INHALE 2 PUFFS BY MOUTH EVERY 4 TO 6 HOURSAS NEEDED, Disp: , Rfl: ??? atorvastatin 10 MG [...] MEAL, Disp: 90 capsule, Rfl: 0 ??? Senna (SENNOSIDES) 8.6 MG tablet, Take 1 tablet by mouth., Disp: , Rfl: ??? venlafaxine XR (EFFEXOR XR) 37.5 MG 24 hr capsule, Take 1 capsule (37.5 mg total) by mouth daily. Take in addition to 150mg daily., Disp: 90 capsule, Rfl: 1 ??? venlafaxine XR 150 MG 24 hr capsule, Take 150 mg by mouth daily., Disp: , Rfl: ??? warfarin 1 MG tablet, Take 1 mg by mouth 3 (three) times a week., Disp: , Rfl: ??? warfarin 5 MG tablet, TAKE 1 TABLET BY MOUTH ONCE DAILY WITH 1 MG TABLET FOR TOTAL 6 MG DAILY, Disp: , Rfl: ??? amiodarone 200 MG tablet, Take 200 mg by mouth daily., Disp: , Rfl: ??? oxymetazoline 0.05 % nasal spray, Not to exceed 3 days. May use for 3 days then refrain for 3 days and repeat as needed., Disp: 20 mL, Rfl: 0 ??? polyethylene glycol 17 GM/SCOOP powder, Take 17 g by mouth 2 (two) times daily as needed., Disp: , Rfl: Allergies: Allergies Allergen Reactions ??? Bacitracin Other [...] Gatherings with Friends and Family: ??? Attends Caodaism Services: ??? Active Member of Clubs or Organizations: ??? Attends Club or Organization Meetings: ??? Marital Status: Intimate Partner Violence: ??? Fear of Current or Ex-Partner: ??? Emotionally Abused: ??? Physically Abused: ??? Sexually Abused: Family History: Family History Problem Relation Name Age of Onset ??? Heart Father ??? Heart Mother XI BRISENO MD 09/17/2020 documented in this encounter Plan of Treatment Upcoming Encounters Date Type Department Care Team (Late st Contact Info) Description 04/14/2024 2:00 PM CREPE LAMINATOR OPERATOR Office Visit [facility] Medical Group Multispecialty Care - [facility] 3 [facility], [address] [place] [id number] Julio Pulido MD 3 [place] [address] documented as of this encounter Goals Goal Patient Goal Type Associated Problems Recent Progress Patient-Stated? Author Health - patient able to perform ADLs independently General On track(2023 9:49 AM CDT) No Dianne Johnson, RN Note: 12/17/23: Patient stated she is independent with ASL's. documented as of this encounter Visit Diagnoses Diagnosis Hammertoe of left foot- Primary documented in this encounter Care Teams Lip Cutter And Scorer Relationship Specialty Start Date End Date Trina Hoffman NP [address] [place] [address] PCP - General NURSE PRACTITIONER 08/23/20 09/24/20 Dianne Johnson, RN [address] [place], [place] [address] Income Tax Manager (Ambulatory) REGISTERED NURSE 08/14/20 documented as of this encounter
--- OUTSIDE RECORDS SUMMARY | 2024-03-15 01:11 | XMS_ITS | Encounter Summary ---
Author Organization [facility] Address [address] [place] [address]. [place] [address] [place] [address] Care Team Providers Care Church Musician Name Role Phone Juan Pablo Dominguez MD Primary Care Provider Dianne Wells RN Unavailable [phone] Reason for Visit * Reason Onset Date Comments Care Management 08/22/2020 Encounter Details Date Type Department Care Team (Late st Contact Info) Description 08/22/2020 Patient Outreach [facility] Medical Group Multispecialty [facility] [place] [address] [place] [address] Bebe Dan, PRESSER AUTOMATIC [address] [place] [address] Care Management Social History Tobacco [...] encounter Progress Notes * SCOTT [place] - 08/22/2020 12:56 PM CDT Spoke with pt and she asked if writer producer can lilia back later as she was driving. Materials Handling Equipment Operator will contact matthew at a later time documented in this encounter Plan of Treatment Upcoming Encounters Date Type Department Care Team (Late st Contact Info) Description 04/14/2024 2:00 PM LANDS RESOURCE MANAGER Office Visit [facility] Medical Group Multispecialty Care - [facility] 3 [facility], [address] [place] [address] Julio Pulido MD 3 [place] [address] documented as of this encounter Goals Goal Patient Goal Type Associated Problems Recent Progress Patient-Stated? Author Health - patient able to perform ADLs independently General On track(2023 9:49 AM CDT) No Dianne Johnson, RN Note: 12/17/23: Patient stated she is independent with ASL's. documented as of this encounter Visit Diagnoses Not on filedocumented in this encounter Care Teams Church Musician Relationship Specialty Start Date End Date Juan Pablo Dominguez MD PCP - General FAMILY MEDICINE SPORTS MEDICINE 11/15/19 08/22/20 Dianen Johnson, RN [address] [place] [address] Civil Lawyer (Ambulatory) REGISTERED NURSE 08/14/20 documented as of this encounter
--- OUTSIDE RECORDS SUMMARY | 2024-03-15 01:11 | XMS_ITS | Encounter Summary ---
Author Organization [facility] Address [address] [place] [address]. [place] [address] [place] [address] Care Team Providers Care Television Operator Name Role Phone Dianne Johnson RN Unavailable [phone] Trina Hoffman BIO MEDICAL TECHNICIAN Primary Care Provider [phone] Reason for Visit * Reason Onset Date Comments Care Management 08/23/2020 Encounter Details Date Type Department Care Team (Late st Contact Info) Description 08/23/2020 Patient Outreach [facility] Medical [facility] Multispecialty [facility] [place] [address] [place] [address] Bebe Dan, UNIVERSAL WINDING MACHINE OPERATOR [address] [place] [address] Care Management Social History Tobacco [...] encounter Progress Notes * SCOTT [place] - 08/23/2020 2:55 PM CDT Logistics Program Manager placed a referral for homemaker services to Anna at [facility] per pts request. Logistics Program Manager will follow up in 3 weeks. documented in this encounter Plan of Treatment Upcoming Encounters Date Type Department Care Team (Late st Contact Info) Description 04/14/2024 2:00 PM TOLL COLLECTOR Office Visit [facility] Medical Group Multispecialty Care - [facility] [address] [facility], [address] [place] [address] Julio Pulido MD 3 [place] [address] documented as of this encounter Goals Goal Patient Goal Type Associated Problems Recent Progress Patient-Stated? Author Health - patient able to perform ADLs independently General On track(2023 9:49 AM CDT) No Dianne Johnson RN Note: 12/17/23: Patient stated she is independent with ASL's. documented as of this encounter Visit Diagnoses Not on filedocumented in this encounter Care Teams Television Operator Relationship Specialty Start Date End Date Trina Hoffman NP [address] [place] [address] PCP - General NURSE PRACTITIONER 08/23/20 09/24/20 Dianne Johnson, RN [address] [place] [address] Composite Worker (Ambulatory) REGISTERED NURSE 08/14/20 documented as of this encounter
--- OUTSIDE RECORDS SUMMARY | 2024-03-15 01:11 | XMS_ITS | Encounter Summary ---
Author Organization [facility] Address [address] [place] [address]. [place] [address] [place] [address] Care Team Providers Care Racing Board Marker Name Role Phone Juan Pablo Dominguez MD Primary Care Provider Unavailabl e Reason for Visit * Reason Onset Date Comments Follow Up Call 08/08/2020 follow up with p t Encounter Details Date Type Department Care Team (Late st Contact Info) Description 08/08/2020 Telephone [facility] Medical Group Family Medicine - [place] [address] [address] Trina Hoffman, MATZO FORMING MACHINE OPERATOR [address] [place] [address] [place] [address] Follow Up Call (follow up with pt ) Social History Tobacco Use Types Packs/Day [...] as of this encounter Progress Notes * Harshal [place] MA - 08/13/2020 2:41 PM CDT I finally found a note regarding the patient. Patient did go to the ER on 08/07/20 as instructed, rowanshe went to [place] and was transferred to [facility] [place] from [place]. * Trina Hoffman NP - 08/08/2020 8:13 AM CDT Pt's INR is not in therapeutic range. Pt's INR is low at 1.2 I am not sure if Cardiology or Dr. Dominguez is managing this. It appears pt has issues with maybe not taking her medicatinon. Please find out if she is taking the 6mg as directed and who is managing this. Also pt called in yesterday at 4:18pm due to feeling short of breath, light headed and feeling likeshe could almost pass out. Donna instructed her to go to the ER. Can you please follow up if pt did and where she went. I don't see a note from [facility]. Thanks. documented in this encounter Plan of Treatment Upcoming Encounters Date Type Department Care Team (Late st Contact Info) Description 04/14/2024 2:00 PM SHEETER HELPER Office Visit [facility] Medical Group Multispecialty Care - [facility] 3 [facility], [address] [place] [address] Julio Pulido MD 3 [place] [address] documented as of this encounter Visit Diagnoses Not on filedocumented in this encounter Care Teams Racing Board Marker Relationship Specialty Start Date End Date Juan Pablo Dominguez MD PCP - General FAMILY MEDICINE SPORTS MEDICINE 11/15/19 08/22/20 documented as of this encounter
--- OUTSIDE RECORDS SUMMARY | 2024-03-15 01:11 | XMS_ITS | Encounter Summary ---
Author Organization [facility] Address [address] [place] [address]. [place] [address] [place] [address] Care Team Providers Care Post Hole Digger Name Role Phone Dianne Johnson RN Unavailable [phone] Trina Hoffman LASER SET UP OPERATOR Primary Care Provider [phone] Reason for Visit * Reason Onset Date Comments Care Management 09/18/2020 Encounter Details Date Type Department Care Team (Late st Contact Info) Description 09/18/2020 Patient Outreach [facility] Medical Group Family Medicine - [place] [address] [facility], [address] [place] [address] Fabricio Calzada, RN Care Management Social History Tobacco Use [...] as of this encounter Progress Notes * Fabricio Calzada RN - 09/18/2020 1:10 PM CDT Chronic Care Management: Patient concerns or urgent matters that need addressed: None Patient Status: Pt is doing ok. He wound on her arm still hurts at times. She is doing her dressingchanges and has some drainage or weeping on it. Denies any redness around wound. Continues with dressing changes. Stil having some back pain. Takes tylenol and/or [place] as needed. She states this helps the pain. Her anxiety is not any better. Still [place] and is afraid to drive. She did drive to [facility] because she had an appt about her foot. She said they want her to get orthotics but she called her insurance and they do not pay for them. She does have a list of places where she can get the orthotics from. I advised her to call one of the DME places on the forms and let them to check with her insur ance. Sometimes they know what to do to get items covered. She will contact Dr. Escudero's office if she does not have a name of a company to see who they recommend. Asked pt if she picked up her Venlafaxine RX. She did not know she has one. I reviewed she was to add this and take it with her 150mg. She will call pharmacy and go pick it up later. Patient denies any further concerns. Patient verbalizes understanding of all education provided. S/S to report have been discussed and patient agrees to call CC or PCP with any new S/S or concerns. Care coordination team to continue to follow. Plan of Care: Sales Development Coordinator to continue to follow Patient Goals: Goals Addressed This Visit's Progress ??? Establish Plan for Symptom Monitoring On track ??? Health - patient able to perform ADLs independently On track Upcoming Visit Appointments: Future Appointments Date Time Provider Department Center 09/25/2020 1:20 PM Sanjeev Webster DO [id number] 10/15/2020 9:00 AM [facility]J RM 2 [facility] 10/15/2020 9:15 AM [facility] CAM 2 [facility] 10/15/2020 11:00 AM [facility] CAM 2 [facility] 10/15/2020 1:00 PM [facility] CAM [facility] 11/05/2020 1:00 PM Terrence Escudero MD [facility] Quality care gaps: Health Maintenance Topic Date Due ??? COVID-19 Vaccine (1) Never done ??? Zoster Vaccines (2 of 3) 09/20/2020 (Originally 02/19/2016) ??? DEXA SCAN (GENERAL) 10/14/2020 (Originally 2009) ??? Diabetes: Retinopathy Eye Exam 10/14/2020 (Originally 1963) ??? DTaP, Tdap and Td Vaccines (1 - Tdap) 11/02/2020 (Originally 05/23/1963) ??? Medicare Wellness Visit 11/20/2020 (Originally 2009) ??? Influenza Adult (1) 12/07/2020 ??? Hemoglobin A1C 01/25/2021 ??? Lipid Panel 07/25/2021 ??? Pneumococcal ages 65 years and older Completed ??? MENINGOCOCCAL VACCINE Aged Out Problem List: Patient Active Problem List Diagnosis ??? Abnormal stress test ??? Bradycardia ??? Chronic anticoagulation ??? Coronary artery disease involving mentasta coronary artery of mentasta heart without angina pectoris ??? Dyslipidemia associated [...] of sixth thoracic vertebra, initial encounter ([facility]) Medications: Current Outpatient Medications Medication Sig Dispense [...] No current facility-administered medications for this visit. FABRICIO CALZADA RN documented in this encounter Plan of Treatment Upcoming Encounters Date Type Department Care Team (Late st Contact Info) Description 04/14/2024 2:00 PM JUNIOR ACCOUNT MANAGER Office Visit [facility] Medical Group Multispecialty Care - [address], [address] [place] [id number] Julio Pulido MD [address] [place] [address] documented as of this encounter Goals Goal [...] documented as of this encounter Care Teams Post Hole Digger Relationship Specialty Start Date End Date Trina Hoffman NP [address] [place] [address] PCP - General NURSE PRACTITIONER 08/23/20 09/24/20 Dianne Johnson, RN [address] [place] [address] Real Estate Portfolio Manager (Ambulatory) REGISTERED NURSE 08/14/20 documented as of this encounter
--- OUTSIDE RECORDS SUMMARY | 2024-03-15 01:11 | XMS_ITS | Encounter Summary ---
Author Organization [facility] Address [address] [place] [address]. [place] [address] [place] [address] Care Team Providers Care Night Patrol Inspector Name Role Phone JohnsonDianne RN Unavailable [phone] Trina Hoffman NP Primary Care Provider [phone] Reason for Visit * Reason Onset Date Comments Results 08/31/2020 Encounter Details Date Type Department Care Team (Late st Contact Info) Description 08/31/2020 Telephone [facility] Medical Group Family Medicine - [place] [address] [facility] [address] [place] [address] Trina Hoffman, JIMBO [address] [place], [place] [address] Results Social History Tobacco Use Types Packs/Day [...] Progress Notes * Harshal [place] MA - 08/31/2020 1:32 PM CDT Patient called asking if we received her neck xrays from yesterday. I did tell her she has moderate spondylosis, but that Trina has not reviewed the results yet and Icouldn't tell what to do about it. Except the patches she got yesterday or heat/ice. Told her we would call next week with results. documented in this encounter Plan of Treatment Upcoming Encounters Date Type Department Care Team (Late st Contact Info) Description 04/14/2024 2:00 PM GOSPEL SINGER Office Visit [facility] Medical Group Multispecialty Care - [facility] 3 [facility], [address] [place] [address] Julio Pulido MD 3 [place] [address] documented as of this encounter Goals Goal Patient Goal Type Associated Problems Recent Progress Patient-Stated? Author Health - patient able to perform ADLs independently General On track(2023 9:49 AM CDT) No Dianne Johnson, RN Note: 12/17/23: Patient stated she is independent with ASL's. documented as of this encounter Visit Diagnoses Not on filedocumented in this encounter Care Teams Night Patrol Inspector Relationship Specialty Start Date End Date Trina Hoffman NP [address] [place] [address] PCP - General NURSE PRACTITIONER 08/23/20 09/24/20 Dianne Johnson, RN [address] [place], [place] [address] Risk Control Specialist (Ambulatory) REGISTERED NURSE 08/14/20 documented as of this encounter
--- OUTSIDE RECORDS SUMMARY | 2024-03-15 01:11 | XMS_ITS | Encounter Summary ---
Author Organization [facility] Address [facility] [place] [address] [place] [address] Care Team Providers Care Jewelry Facer Name Role Phone Dianne Johnson RN Unavailable [phone] Trina Hoffman CLINICAL TEAM LEAD Primary Care Provider [phone] Encounter Details Date Type Department Care Team (Late st Contact Info) Description 09/17/2020 Patient Outreach [facility] Medical Group - [facility] [address] [place] [address] Bebe Dan, SHEET IRONWORKER [address] [place] [address] Social History Tobacco Use Types [...] encounter Progress Notes * SCOTT [place] - 09/17/2020 1:38 PM CDT Spoke with Christiane yates [facility] to check status of referral. She states referral has been assigned to a motel manager and that they should be calling soon. Ice Cream Mixer will call again next week. documented in this encounter Plan of Treatment Upcoming Encounters Date Type Department Care Team (Late st Contact Info) Description 04/14/2024 2:00 PM COMMERCIAL LOAN CLOSER Office Visit [facility] Medical Group Multispecialty Care - [facility] [address] [facility], [address] [place] [address] Julio Pulido MD [address] [place] [address] documented as of this encounter Goals Goal Patient Goal Type Associated Problems Recent Progress Patient-Stated? Author Health - patient able to perform ADLs independently General On track(2023 9:49 AM CDT) No Dianne Johnson, RN Note: 12/17/23: Patient stated she is independent with ASL's. documented as of this encounter Visit Diagnoses Not on filedocumented in this encounter Care Teams Jewelry Facer Relationship Specialty Start Date End Date Trina Hoffman NP [address] [place] [address] PCP - General NURSE PRACTITIONER 08/23/20 09/24/20 Dianne Johnson, RN [address] [place] [address] Registered Nurse Obstetrics (Ambulatory) REGISTERED NURSE 08/14/20 documented as of this encounter
--- OUTSIDE RECORDS SUMMARY | 2024-03-15 01:11 | XMS_ITS | Encounter Summary ---
Author Organization [facility] Address [facility] [place] [address] [place] [address] Care Team Providers Care Interactive Producer Name Role Phone Juan Pablo Dominguez MD Primary Care Provider Dianne Wells RN Unavailable [phone] Reason for Visit * Reason Onset Date Comments Hospital Follow Up 08/10/2020 Encounter Details Date Type Department Care Team (Late st Contact Info) Description 08/10/2020 Patient Outreach [facility] Family & Internal Medicine [facility] [id number] [place] [address] Dianne Johnson, RN [address] [place] [address] Hospital Follow Up Social History Tobacco Use [...] Progress Notes * Dianne Johnson RN - 08/10/2020 3:48 PM CDT 08/10: Received call from Rubia at [facility]. Stated patient went to [facility], then transferred to [facility] in [place] (Records in Care Everywhere). Stated today she was approved to betransferred to [facility] today for further treatment. Reports patient was c/o h/a, dizziness and found tohave a cerebral aneurysm. 08/10: Contacted Fátima at [facility] medical records. Stated patient was in the ER on 08/07/20. Stated she will fax records to critical care educator. 08/14: Received records from [facility] and faxed a copy to 's office. 08/14: Patient is in room 406-2 at [facility].Transferred to nurse Mary at [phone]. Stated patient is doing well. Reports patient is receiving OT/PT at this time. No D/C plans established at this time. Carecoordinator will continue to follow and complete TCM call back when D/C. Thank you. documented in this encounter Plan of Treatment Upcoming Encounters Date Type Department Care Team (Late st Contact Info) Description 04/14/2024 2:00 PM PRINTING WORKER SUPERVISOR Office Visit [facility] Multispecialty Care - [facility] 3 [facility], [address] [place] [address] Julio Pulido MD 3 [place] [address] documented as of this encounter Visit Diagnoses Not on filedocumented in this encounter Care Teams Interactive Producer Relationship Specialty Start Date End Date Juan Pablo Dominguez MD PCP - General FAMILY MEDICINE SPORTS MEDICINE 11/15/19 08/22/20 Dianne Johnson, RN [address] [place] [address] Australian Rules Footballer (Ambulatory) REGISTERED NURSE 08/14/20 documented as of this encounter
--- OUTSIDE RECORDS SUMMARY | 2024-03-15 01:11 | XMS_ITS | Encounter Summary ---
Author Organization [facility] Address [address] [place] [address]. [place] [address] [place] [address] Care Team Providers Care Terry Cloth Cutter Hand Name Role Phone Juan Pablo Dominguez MD Primary Care Provider Dianne Wells RN Unavailable [phone] Trina Hoffman NP Primary Care Provider [phone] Encounter Details Date Type Department Care Team (Latest Contact Info) Description 08/17/2020 Scan HEALTH INFO SRVCS Scanned, Documents Social [...] (Late Contact Info) Description 04/14/2024 2:00 PM PASSENGER LOCOMOTIVE ENGINEER Office Visit [facility] Medical Group Multispecialty Care - [address], [address] [place] [address] Julio Pulido MD 3 [place] [address] documented as of this encounter Goals Goal Patient Goal Type Associated Problems Recent Progress Patient-Stated? Author Health - patient able to perform ADLs independently General On track(2023 9:49 AM CDT) No Dianne Johnson, RN Note: 12/17/23: Patient stated she is independent with ASL's. documented as of this encounter Visit Diagnoses Not on filedocumented in this encounter Care Teams Terry Cloth Cutter Hand Relationship Specialty Start Date End Date Juan Pablo Dominguez MD PCP - General FAMILY MEDICINE SPORTS MEDICINE 11/15/19 08/22/20 Trina Hoffman NP [address] [place] [address] PCP - General NURSE PRACTITIONER 08/23/20 09/24/20 Dianne Johnson, RN [address] [place] [address] Heating Unit Installer (Ambulatory) REGISTERED NURSE 08/14/20 documented as of this encounter
--- OUTSIDE RECORDS SUMMARY | 2024-03-15 01:11 | XMS_ITS | Encounter Summary ---
Author Organization [facility] Address [facility] [place] [address] [place] [address] Care Team Providers Care Maintainer Plant Name Role Phone Juan Pablo Dominguez MD Primary Care Provider Dianne Wells RN Unavailable [phone] Reason for Visit * Reason Onset Date Comments Appointment Request 08/14/2020 Encounter Details Date Type Department Care Team (Late st Contact Info) Description 08/14/2020 Telephone [facility] Family Medicine - [place] [address] [facility] [address] [place], [place] [address] Juan Pablo Dominguez MD Appointment Request Social History Tobacco Use [...] Progress Notes * Tricia Gonzales CMA - 08/14/2020 3:43 PM CDT Calling patient to schedule EE visit My direct line is [phone] and ext [phone] documented in this encounter Plan of Treatment Upcoming Encounters Date Type Department Care Team (Late st Contact Info) Description 04/14/2024 2:00 PM PROFESSOR COMPUTER SCIENCE Office Visit [facility] Multispecialty Care - [facility] 3 [facility], [address] [place] [address] Julio Pulido MD 3 [place] [address] documented as of this encounter Visit Diagnoses Not on filedocumented in this encounter Care Teams Maintainer Plant Relationship Specialty Start Date End Date Juan Pablo Dominguez MD PCP - General FAMILY MEDICINE SPORTS MEDICINE 11/15/19 08/22/20 Dianne Johnson, RN [address] [place] [address] Behavioral Specialist (Ambulatory) REGISTERED NURSE 08/14/20 documented as of this encounter
--- OUTSIDE RECORDS SUMMARY | 2024-03-15 01:11 | XMS_ITS | Encounter Summary ---
Author Organization [facility] Address [address] [place] [address]. [place] [address] [place] [address] Care Team Providers Care Mixing Picker Tender Name Role Phone Dianne Johnson RN Unavailable [phone] Sanjeev Webster DO Primary Care Provider + Encounter Details Date Type Department Care Team (Latest Contact Info) Description 09/25/2020 Travel Social History Tobacco Use Types Packs/Day [...] Contact Info) Description 04/14/2024 2:00 PM ASSISTANT PROFESSOR OF PHYSICS Office Visit [facility] Medical Group Multispecialty Care - [address], [address] [place] [address] Julio Pulido MD 3 [place] [address] documented as of this encounter Goals Goal [...] documented as of this encounter Care Teams Mixing Picker Tender Relationship Specialty Start Date End Date Sanjeev Webster DO [address] [place] [address] PCP - General FAMILY PRACTICE 09/25/20 Dianne Johnson, RN [address] [place] [address] Taxation Agent (Ambulatory) REGISTERED NURSE 08/14/20 documented as of this encounter
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
--- OUTSIDE RECORDS SUMMARY | 2024-03-15 01:11 | XMS_ITS | Encounter Summary ---
Author Organization [facility] - [facility] Address [facility]6 [facility] [place] [address] [place] [address] Care Team Providers Care Title Investigator Name Role Phone Juan aPblo Dominguez MD Primary Care Provider Dianne Wells RN Unavailable [phone] Encounter Details Date Type Department Care Team (Late st Contact Info) Description 08/14/2020 Orders Only [facility] Medical Group Multispecialty Care - [facility] [address] [facility] [address] [place] [address] Terrence Escudero MD [address] [place] [id number] Social History Tobacco Use Types Packs/Day Years [...] st Contact Info) Description 04/14/2024 2:00 PM COPYHOLDER Office Visit [facility] Medical Group Multispecialty Care - [facility] [address] [facility], [address] [place] [address] Julio Pulido MD 3 [place] [address] documented as of this encounter Results * OXR FOOT STANDING LT 3V (09/17/2020 1:00 PM CDT) Anatomical Region Laterality Modality Foot Radiographic Jennifer ging Narrative 09/17/2020 1:16 PM CDT PROCEDURE: OXR FOOT STANDING LT 3V VIEWS: 3 DATE: ??09/17/20 CLINICAL INDICATION: Lt foot pain FINDINGS: 3 views left foot. ??Weightbearing AP, oblique, lateral. ?? Moderate hallux valgus deformity. ??Some incongruency to the first metatarsophalangeal joint. ??Extension deformities of the second and third metatarsophalangeal joints. ??The second metatarsophalangeal joint may be dislocated. ??Calcification of the posterior tibial artery on the lateral radiograph. IMPRESSION: Forefoot deformities as described. Terrence Escudero MD GENERAL IMAGING Final Result documented in this encounter Visit Diagnoses Diagnosis Left foot pain- Primary Pain in limb documented in this encounter Care Teams Title Investigator Relationship Specialty Start Date End Date Juan Pablo Dominguez MD PCP - General FAMILY MEDICINE SPORTS MEDICINE 11/15/19 08/22/20 Dianne Johnson, RN [address] [place] [address] Educational Coordinator (Ambulatory) REGISTERED NURSE 08/14/20 documented as of this encounter
--- OUTSIDE RECORDS SUMMARY | 2024-03-15 01:11 | XMS_ITS | Encounter Summary ---
Author Organization [facility] Address [facility]6 [facility] [place] [address] [place] [address] Care Team Providers Care Area Operations Manager Name Role Phone Dianne Johnson RN Unavailable [phone] Trina Hoffman E COMMERCE MARKETING MANAGER Primary Care Provider [phone] Reason for Visit * Reason Onset Date Comments Pre-visit Gap Closure 09/18/2020 Encounter Details Date Type Department Care Team (Late st Contact Info) Description 09/18/2020 Telephone [facility] Medical Group Family Medicine - [place] [address] [address] Sanjeev Webster P, DO [address] [place] [address] Pre-visit Gap Closure Social History [...] Progress Notes * Tricia Gonzales CMA - 09/18/2020 2:11 PM CDT Contacted patient for pre-visit gap closure. I am calling this patient as a patient advocate for the [employer] Work Program. My direct extension is [phone]. You can also reach me at: [phone] ([facility]) OR [phone] ([facility]ICOLE) documented in this encounter Plan of Treatment Upcoming Encounters Date Type Department Care Team (Late st Contact Info) Description 04/14/2024 2:00 PM TOP CASE ASSEMBLER Office Visit [facility] Medical [facility] Multispecialty Care - [facility] 3 [facility], [address] [place] [address] Julio Pulido MD 3 [place] [address] documented as of this encounter Goals Goal [...] documented as of this encounter Care Teams Area Operations Manager Relationship Specialty Start Date End Date Trina Hoffman NP [address] [place] [address] PCP - General NURSE PRACTITIONER 08/23/20 09/24/20 Dianne Johnson, RN [address] [place] [address] Clothing Busheler (Ambulatory) REGISTERED NURSE 08/14/20 documented as of this encounter
--- OUTSIDE RECORDS SUMMARY | 2024-03-15 01:11 | XMS_ITS | Encounter Summary ---
Author Organization [facility] Address [address] [place] [address]. [place] [address] [place] [address] Care Team Providers Care Event Marketing Intern Name Role Phone Dianne Johnson RN Unavailable [phone] Trina Hoffman CUSTOMER CARE CONSULTANT Primary Care Provider [phone] Encounter Details Date Type Department Care Team (Latest Contact Info) Description 09/05/2020 Scan HEALTH INFO SRVCS Scanned, Documents Social [...] st Contact Info) Description 04/14/2024 2:00 PM SHORT RANGE AIR DEFENSE ARTILLERY Office Visit [facility] Medical Group Multispecialty Care - [address], [address] [place] [address] Julio Pulido MD 3 [place] [address] documented as of this encounter Goals Goal Patient Goal Type Associated Problems Recent Progress Patient-Stated? Author Health - patient able to perform ADLs independently General On track(2023 9:49 AM CDT) No Dianne Johnson, RN Note: 12/17/23: Patient stated she is independent with ASL's. documented as of this encounter Visit Diagnoses Not on filedocumented in this encounter Care Teams Event Marketing Intern Relationship Specialty Start Date End Date Trina Hoffman NP [address] [place] [address] PCP - General NURSE PRACTITIONER 08/23/20 09/24/20 Dianne Johnson, RN [address] [place] [address] News Assistant (Ambulatory) REGISTERED NURSE 08/14/20 documented as of this encounter
--- OUTSIDE RECORDS SUMMARY | 2024-03-15 01:11 | XMS_ITS | Encounter Summary ---
Author Organization [facility] Address [address] [place] [address]. [place] [address] [place] [address] Care Team Providers Care Medical Technician Assistant Name Role Phone Dianne Johnson RN Unavailable [phone] Trina Hoffman CHEMICAL ECONOMIST Primary Care Provider [phone] Encounter Details Date Type Department Care Team (Latest Contact Info) Description 08/30/2020 Travel Social History Tobacco Use Types Packs/Day [...] st Contact Info) Description 04/14/2024 2:00 PM ROUTE SALES DELIVERY DRIVERS SUPERVISOR Office Visit [facility] Medical Group Multispecialty Care - [facility] 3 [facility], [address] [place] [address] Julio Pulido MD 3 [place], [place] [address] documented as of this encounter Goals Goal Patient Goal Type Associated Problems Recent Progress Patient-Stated? Author Health - patient able to perform ADLs independently General On track(2023 9:49 AM CDT) No Dianne Johnson, RN Note: 12/17/23: Patient stated she is independent with ASL's. documented as of this encounter Visit Diagnoses Not on filedocumented in this encounter Care Teams Medical Technician Assistant Relationship Specialty Start Date End Date Trina Hoffman NP [address] [place] [address] PCP - General NURSE PRACTITIONER 08/23/20 09/24/20 Dianne Johnson, RN [address] [place] [address] Urban Forester (Ambulatory) REGISTERED NURSE 08/14/20 documented as of this encounter
--- OUTSIDE RECORDS SUMMARY | 2024-03-15 01:11 | XMS_ITS | Encounter Summary ---
Author Organization [facility] Address [address] [place] [address]. [place] [address] [place] [address] Care Team Providers Care Icu Registered Nurse Name Role Phone Dianne Johnson RN Unavailable [phone] Trina Hoffman GAS MAKER HELPER Primary Care Provider [phone] Encounter Details Date Type Department Care Team (Latest Contact Info) Description 09/13/2020 Travel Social History Tobacco Use Types Packs/Day [...] Contact Info) Description 04/14/2024 2:00 PM SYSTEMS SPECIALIST Office Visit [facility] Medical Group Multispecialty Care - [facility] 3 [facility], [address] [place] [address] Julio Pulido MD 3 [place], [place] [address] documented as of this encounter Goals Goal Patient Goal Type Associated Problems Recent Progress Patient-Stated? Author Health - patient able to perform ADLs independently General On track(2023 9:49 AM CDT) No Dianne Johnson, RN Note: 12/17/23: Patient stated she is independent with ASL's. documented as of this encounter Visit Diagnoses Not on filedocumented in this encounter Care Teams Icu Registered Nurse Relationship Specialty Start Date End Date Trina Hoffman NP [address] [place] [address] PCP - General NURSE PRACTITIONER 08/23/20 09/24/20 Dianne Johnson, RN [address] [place] [address] Senior Grants Officer (Ambulatory) REGISTERED NURSE 08/14/20 documented as of this encounter
--- OUTSIDE RECORDS SUMMARY | 2024-03-15 01:12 | XMS_ITS | Encounter Summary ---
Author Organization [facility] Address [facility]6 [facility] [place] [address] [place] [address] Care Team Providers Care Graphics Manager Name Role Phone Heriberto Guan MD Primary Care Provider Unavailabl e Reason for Visit * Reason Onset Date Comments Refill Request 04/04/2020 Encounter Details Date Type Department Care Team (Late st Contact Info) Description 04/04/2020 Telephone [facility] Medical Group Family Medicine [facility] [address] [place] [address] Heriberto Guan MD Refill Request Social History Tobacco Use Types Packs/Day Years Used Date Smoking Tobacco: Never Smokeless Tobacco: Never PHQ-2 Answer Date Recorded PHQ-2 Score - [...] Progress Notes * Harshal Deal MA - 04/05/2020 9:16 AM CST Last office visit at this office: Last visit with HERIBERTO GUAN in FAMILY PRACTICE was on: 02/27/2020 in [facility] Future appointment scheduled: Future Appointments Date Time Provider Department Center 05/10/2020 3:20 PM Heriberto Guan MD [facility] [id number] Sent to Dr. Guan INTERN * Donna Norwood - 04/04/2020 2:50 PM CST Radha called in stating she was supposed to call in with her blood pressure but her cuff is not working correctly. She is going to buy a new one. Also, she is requesting a refill on hydrocodone. Cameron You Erin. INTERN documented in this encounter Plan of Treatment Upcoming Encounters Date Type Department Care Team (Late st Contact Info) Description 04/14/2024 2:00 PM MBA INTERN Office Visit [facility] Medical Group Multispecialty Care - [facility] 3 [facility], [address] [place] [address] Julio Pulido MD 3 [place] [address] documented as of this encounter Visit Diagnoses Diagnosis Chronic bilateral low back pain without sciatica documented in this encounter Care Teams Graphics Manager Relationship Specialty Start Date End Date Hreiberto Guan MD PCP - General FAMILY MEDICINE SPORTS MEDICINE 11/15/19 08/22/20 documented as of this encounter
--- OUTSIDE RECORDS SUMMARY | 2024-03-15 01:12 | XMS_ITS | Encounter Summary ---
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 help determine primary versus secondary hyperparathyroidism. I have also completed an for a lumbar x-ray to look for any masses or any concerning changes along the spine. Patient has chronic allergic rhinitis would like a refill on his Astelin nasal spray And has chronic iron deficiency anemia 30 okay refill on her FeroSul Hydrocodone 10/650 Coumadin 6 mg daily except Thursday amiadarone 100 mg daily. Medications: Current Outpatient Medications: ??? azelastine (AZELASTINE) 0.1 % nasal spray, 1 spray by Nasal route 2 (two) times daily. Use in each nostril as directed, Disp: 30 mL, Rfl: 1 ??? FEROSUL 325 (65 Fe) MG tablet, Take 1 tablet (325 mg total) by mouth daily., Disp: 90 tablet, Rfl: 1 ??? HYDROcodone-acetaminophen 10-325 MG tablet, Take 1 tablet by mouth every 6 (six) hours as needed for Pain. Indications: Chronic Pain, Disp: 30 tablet, Rfl: 0 ??? albuterol sulfate HFA 108 (90 Base) MCG/ACT inhaler, INHALE 2 PUFFS BY MOUTH EVERY 4 TO 6 HOURSAS NEEDED, Disp: , Rfl: ??? amiodarone 200 MG tablet, Take 200 mg by mouth daily., Disp: , Rfl: ??? atorvastatin 10 MG tablet, Take 10 mg by mouth daily., Disp: , Rfl: ??? Cholecalciferol (VITAMIN D3) 25 MCG (1000 UT) Cap, Take 1,000 Units by mouth daily., Disp: , Rfl: ??? CONTOUR NEXT TEST test strip, USE 1 STRIP TO CHECK GLUCOSE THREE TIMES DAILY, Disp: , Rfl: ??? DOK 100 MG capsule, TAKE 1 CAPSULE BY MOUTH TWICE DAILY NEEDED, Disp: , Rfl: ??? fluticasone propionate 50 MCG/ACT nasal spray, 2 sprays by Each Nostril route daily., Disp: , Rfl: ??? furosemide 40 MG tablet, Take 40 mg by mouth daily., Disp: , Rfl: ??? gabapentin 300 MG capsule, Take 1 capsule (300 mg total) by mouth 2 (two) times daily., Disp: 180 capsule, Rfl: 0 ??? lisinopril 2.5 MG tablet, Take 2.5 mg by mouth daily., Disp: , Rfl: ??? omeprazole 20 MG capsule, TAKE 1 CAPSULE BY MOUTH ONCE DAILY 30 MINUTES TO 1 HOUR BEFORE A MEAL, Disp: , Rfl: ??? venlafaxine XR 150 MG 24 hr capsule, Take 150 mg by mouth daily., Disp: , Rfl: ??? vitamin B-12 (CYANOCOBALAMIN) 1000 mcg tablet, Take 1,000 mcg by mouth daily., Disp: , Rfl: ??? warfarin 6 MG tablet, TAKE 1 TABLET (6 MG) ON Thursday AND THURSDAY. THEN TAKE 7MG ON Thursday AND THURSDAY., Disp: , Rfl: Allergies Allergen Reactions ??? Bacitracin Other (see comment) ??? Benzalkonium Other (see comment) ??? Gramicidin Other (see comment) ??? Hydrocortisone Other (see comment) ??? Neomycin Other (see comment) ??? Polymyxin B Other (see comment) Past Medical History: Diagnosis Date ??? Anxiety ??? Atrial flutter (CMS/HCC) ??? Cataract ??? Diabetes mellitus (CMS/HCC) ??? H/O mechanical aortic valve replacement 2003 ??? Hypertension OB History No obstetric history on file. Past Surgical History: Procedure Laterality Date ??? REPAIR HEART WOUND Social History Tobacco Use ??? Smoking status: Never Smoker ??? Smokeless tobacco: Never Used Substance Use Topics ??? Alcohol use: Not on file ??? Drug use: Never No family history on file. ROS: Review of Systems Constitutional: Negative for chills, diaphoresis, fever and malaise/fatigue. HENT: Negative for congestion and sore throat. Eyes: Negative for blurred vision and double vision. Respiratory: Negative for cough and shortness of breath. Cardiovascular: Negative for chest pain, palpitations and leg swelling. Gastrointestinal: Negative for abdominal pain, nausea and vomiting. Genitourinary: Negative for flank pain and frequency. Musculoskeletal: Positive for back pain and myalgias. Negative for joint pain. Skin: Negative for itching and rash. Neurological: Negative for tingling, sensory change, focal weakness and weakness. Endo/Heme/Allergies: Negative for polydipsia. Does not bruise/bleed easily. Psychiatric/Behavioral: Negative for depression. The patient is not nervous/anxious. Physical Exam Constitutional: She is oriented to person, place, and time. She appears well- developed and well-nourished. No distress. HENT: Head: Normocephalic and atraumatic. Right Ear: External ear normal. Left Ear: External ear normal. Eyes: Pupils are equal, round, and reactive to light. Conjunctivae and EOM are normal. Right eye exhibits no discharge. Left eye exhibits no discharge. No scleral icterus. Neck: Normal range of motion. Neck supple. No JVD present. No tracheal deviation present. No thyromegaly present. Cardiovascular: Normal rate, regular rhythm, normal heart sounds and intact distal pulses. Exam reveals no gallop and no friction rub. No murmur heard. Pulmonary/Chest: Effort normal and breath sounds normal. No stridor. No respiratory distress. She has no wheezes. She has no rales. She exhibits no tenderness. Abdominal: Soft. Bowel sounds are normal. She exhibits no distension and no mass. There is no abdominal tenderness. There is no rebound and no guarding. Musculoskeletal: Normal range of motion. General: No tenderness, deformity or edema. Lymphadenopathy: She has no cervical adenopathy. Neurological: She is alert and oriented to person, place, and time. She has normal reflexes. No cranial nerve deficit. She exhibits normal muscle tone. Coordination normal. Skin: Skin is warm and dry. No rash noted. She is not diaphoretic. No erythema. No pallor. Psychiatric: She has a normal mood and affect. Her speech is normal and behavior is normal. Judgment and thought content normal. Nursing note and vitals reviewed. Ortho Exam Filed Vitals: 02/03/20 1435 BP: 130/76 Pulse: 72 Resp: 18 SpO2: 96% Weight: 86.2 kg (190 lb) Height: 5' 4 (1.626 m) PainSc: 5 Moderate Pain (0-10 Scale) Assessment/Recommendations/Plan 1. Hypercalcemia I spent 60 minutes greater than 50% syeb-ex-xrin time with the granddaughter and patient reviewing all previous laboratory panels, reviewing our last visit, reviewing the last skating rink manager visit, reviewing the most recent echocardiogram and recommendations I have also had the patient sign an thoroughly discuss a pain management medication contract, we have also ordered a urine drug screen and reordered all the previous laboratory panels that have not been completed such as a CBC, CMP, 24 urine hour calcium, PTH, vitamin D, we have updated the medication list given the patient refills of FeroSul and warfarin reviewed the most recent INR which is 2.2 in therapeutic range ordered an x-ray of her lumbar spine since she has chronic back pain not controlled by chronic pain medication we have also prescribed the pain medication but along with a urine drug screen, lumbar spine 3 view PTH and urine calcium will help rule out multiple myeloma, primary versus secondary hyperparathyroidism 2. Chronic bilateral low back pain without sciatica - XR LUMB SPINE 3V; Future - HYDROcodone-acetaminophen 10-325 MG tablet; Take 1 tablet by mouth every 6 (six) hours as needed for Pain. Indications: Chronic Pain Dispense: 30 tablet; Refill: 0 - PAIN MGMT DRUG SCREEN, URINE; Future 3. Chronic frontal sinusitis Continues to have more of a chronic allergic rhinitis due to seasonal change. Nasal saline sprays or irrigation with larger volumes of saline can wash allergens from the nasal passages. Saline can be used alone for mild symptoms or just before other topical medications, so that the mucosa is freshly cleansed when the medications are applied. Nasal irrigation with saline can be performed as needed only, daily at baseline, or twice daily for increased symptoms. Many brands of saline nasal sprays are available [id number]. I also explained that the most effective single therapy for patients with persistent and significant nasal symptoms is a glucocorticoid nasal spray. Other therapies include oral antihistamines, antihistamine nasal sprays, mast cell stabilizers,, leukotriene modifiers, and ipatropium. - azelastine (AZELASTINE) 0.1 % nasal spray; 1 spray by Nasal route 2 (two) times daily. Use in each nostril as directed Dispense: 30 mL; Refill: 1 4. Memory deficits We have recently stopped Requip 0.25 mg, Zanaflex 2 mg, trazodone 50 mg and metoprolol 25 mg since this time patient has had a great improvement in her memory. We will continue to follow and make referrals as needed currently the granddaughter feels that the patient has made great strides since stopping his medications and currently does not need a referral to neurology for further advisement. 5. Iron deficiency anemia, unspecified iron deficiency anemia type - FEROSUL 325 (65 Fe) MG tablet; Take 1 tablet (325 mg total) by mouth daily. Dispense: 90 tablet; Refill: 1 6. Kidney dysfunction To her previous history the patient looks like she may have stage III chronic renal insufficiency Ihave ordered a CMP again to reevaluate I have printed this I will give them a copy to the patient and her granddaughter they will take this to [facility] and if not available will take you to another [facility] facility to make sure that I do receive the results point I will call the patient with results we will make further decisions at that time 7. Chronic anticoagulation Is 2.2 continue current management 6 mg every day except Thursday complete monthly INR check 8. Vitamin D deficiency Adults who do not have regular, effective sun exposure year round should consume at least 600 to 800 international units (15 to 20 micrograms) of Vitamin D3 (cholecalciferol) daily. Older persons confined indoors and other high-risk groups may have low serum 25- hydroxyvitamin D (25[OH]D) concentrations at this intake level and may require higher intakes. Vitamin D insufficiency appears to be common among several other populations, including those who are Dark skinned, Obese, Taking medications that accelerate the metabolism of vitamin D such as phenytoin. Hospitalized on a general medical service, Institutionalized And those who have: Limited effective sun exposure due to protective clothing or consistent use of sun screens Osteoporosis Malabsorption, including inflammatory bowel disease and celiac disease There are two preparations that are used for Vitamin D deficiency: Vitamin D3 (cholecalciferol) is available in 400, 800, 1000, 2000, 5000, 10,000, and 50,000 unit capsules. Vitamin D2 (ergocalciferol) is available for oral use in 400 and 50,000 unit capsules or in a liquid form (8000 unit/mL [200 mcg/mL]) Follow up: 3 month or sooner depending on labs HERIBERTO GUAN MD 02/03/2020 2:38 PM GN LEADER documented in this encounter Plan of Treatment Upcoming Encounters Date Type Department Care Team (Late st Contact Info) Description 04/14/2024 2:00 PM DESIGN LEADER Office Visit [facility] Multispecialty Care - [address], [address] [place] [address] Julio Pulido MD 3 [place] [address] documented as of this encounter Results * XR LUMB SPINE 3V (02/06/2020 2:19 PM DESIGN LEADER) Anatomical Region Laterality Modality Spine Radiographic Jennifer ging 02/06/2020 2:32 PM DESIGN LEADER Impressions 02/06/2020 2:34 PM DESIGN LEADER IMPRESSION: 1. No acute radiographic abnormality identified. 2. Diffuse spondylosis. 3. Significant atherosclerotic calcifications. Interpreted By: Rao Hoyt MD, 02/06/2020 2:32 PM Narrative 02/06/2020 2:34 PM DESIGN LEADER Examination: XR LUMB SPINE 3V Exam time: 02/06/2020 2:07 PM Clinical history: chronic back pain and hypercalcemia Comparison: No prior exam Technique: AP, lateral, and lumbosacral views Findings: There are 5 lumbar type vertebra. Mild degenerative type dextroconvex curvature. Diffuse spondylosis throughout the lumbar spine with anterior lateral vertebral body endplate spurring. No evidence of fracture or acute osseous abnormality. No evidence of subluxations. Facet joint arthritic change lower lumbar spine. Sacroiliac joints appear unremarkable. Visualized sacral ala appear intact. Aortoiliac atherosclerotic calcifications. Procedure Note Rao Hoyt MD - 02/06/2020 Examination: XR LUMB SPINE 3V Exam time: 02/06/2020 2:07 PM Clinical history: chronic back pain and hypercalcemia Comparison: No prior exam Technique: AP, lateral, and lumbosacral views Findings: There are 5 lumbar type vertebra. Mild degenerative type dextroconvex curvature. Diffuse spondylosis throughout the lumbar spine with anterior lateral vertebral body endplate spurring. No evidence of fracture or acute osseous abnormality. No evidence of subluxations.Facet joint arthritic change lower lumbar spine. Sacroiliac joints appear unremarkable. Visualized sacral ala appear intact. Aortoiliac atherosclerotic calcifications. IMPRESSION: 1. No acute radiographic abnormality identified. 2. Diffuse spondylosis. 3. Significant atherosclerotic calcifications. Interpreted By: Rao Hoyt MD, 02/06/2020 2:32 PM Heriberto Guan MD GENERAL IMAGING Final Result documented in this encounter Visit Diagnoses Diagnosis Iron deficiency anemia, unspecified iron deficiency anemia type- Primary Hypercalcemia Chronic bilateral low back pain without sciatica Chronic frontal sinusitis Memory deficits Memory loss Kidney dysfunction Unspecified disorder of kidney and ureter Chronic anticoagulation Encounter for long-term (current) use of anticoagulants Vitamin D deficiency Unspecified vitamin D deficiency documented in this encounter Care Teams Residential Substance Abuse Counselor Relationship Specialty Start Date End Date Heriberto Guan MD PCP - General FAMILY MEDICINE SPORTS MEDICINE 11/15/19 08/22/20 documented as of this encounter
--- OUTSIDE RECORDS SUMMARY | 2024-03-15 01:12 | XMS_ITS | Encounter Summary ---
Author Organization [facility] Address [facility] [place] [place] [address] [place] [address] Care Team Providers Care Skylights Assembler Name Role Phone Heriberto Guan MD Primary Care Provider Unavailabl e Reason for Visit * Reason Onset Date Comments Refill Request 02/16/2020 Encounter Details Date Type Department Care Team (Late st Contact Info) Description 02/16/[address] [facility] Family Medicine [facility] [address] [place] [id number] Heriberto Guan MD Refill Request Social History [...] or suspected to have Coronavirus / COVID-19? Unable to assess 02/06/2020 2:59 PM LOG YARD MANAGER documented as of this encounter Progress Notes * Harshal Deal MA - 02/16/2020 12:40 PM CST Last office visit at this office: Last visit with HERIBERTO GUAN in FAMILY PRACTICE was on: 02/03/2020 in [facility] Future appointment scheduled: Future Appointments Date Time Provider Department Center 02/27/2020 1:00 PM [facility] NURSE [facility] [id number] 05/10/2020 3:20 PM Heriberto Guan MD [facility] [id number] Sent to pharmacy YARD MANAGER documented in this encounter Plan of Treatment Upcoming Encounters Date Type Department Care Team (Late st Contact Info) Description 04/14/2024 2:00 PM LOG YARD MANAGER Office Visit [facility] Medical [facility] Multispecialty Care - [address], [address] [place] [address] Julio Pulido MD 3 [place] [address] documented as of this encounter Visit Diagnoses Diagnosis GERD (gastroesophageal reflux disease)- Primary Esophageal reflux documented in this encounter Care Teams Skylights Assembler Relationship Specialty Start Date End Date Heriberto Guan MD PCP - General FAMILY MEDICINE SPORTS MEDICINE 11/15/19 08/22/20 documented as of this encounter
--- OUTSIDE RECORDS SUMMARY | 2024-03-15 01:12 | XMS_ITS | Encounter Summary ---
Author Organization [facility] Address [address] [place] [address]. [place] [address] [place] [address] Care Team Providers Care Steam Frame Operator Name Role Phone Juan Pablo Dominguez MD Primary Care Provider Unavailabl e Encounter Details Date Type Department Care Team (Latest Contact Info) Description 07/04/2020 Travel Social History Tobacco Use Types Packs/Day [...] have Coronavirus / COVID-19? No / Unsure 07/04/2020 2:10 PM CDT documented as of this encounter Plan of Treatment Upcoming Encounters Date Type Department Care Team (Late st Contact Info) Description 04/14/2024 2:00 PM PROP CUTTER Office Visit [facility] Medical Group Multispecialty Care - [address], [address] [place] [address] Julio Pulido MD 3 [place] [address] documented as of this encounter Visit Diagnoses Not on filedocumented in this encounter Care Teams Steam Frame Operator Relationship Specialty Start Date End Date Juan Pablo Dominguez MD PCP - General FAMILY MEDICINE SPORTS MEDICINE 11/15/19 08/22/20 documented as of this encounter
--- OUTSIDE RECORDS SUMMARY | 2024-03-15 01:12 | XMS_ITS | Encounter Summary ---
Author Organization [facility] Address [facility] [facility] [place] [address] [place] [address] Care Team Providers Care Audio Visual Facilities Engineer Name Role Phone Heriberto Guan MD Primary Care Provider Unavailabl e Reason for Visit * Reason Onset Date Comments Medication 07/02/2020 Encounter Details Date Type Department Care Team (Late st Contact Info) Description 07/02/2020 Telephone [facility] Medical Group Family Medicine [facility] [address] [place] [phone] Heriberto Guan MD Medication Social History Tobacco Use Types Packs/Day [...] Progress Notes * Harshal Deal MA - 07/04/2020 2:17 PM CDT Last office visit at this office: Last visit with HERIBERTO GUAN in FAMILY PRACTICE was on: 05/18/[address] [facility] Future appointment scheduled: Future Appointments Date Time Provider Department Center 07/04/2020 2:40 PM Adiel Leyva MD [id number] Sent to Dr. Guan * Lashawn Mcghee Vega - 07/02/2020 4:02 PM CDT She needs refill on hydrocodone, and she also needs something to break up chest congestion. documented in this encounter Plan of Treatment Upcoming Encounters Date Type Department Care Team (Late st Contact Info) Description 04/14/2024 2:00 PM SPOOLER RUBBER STRAND Office Visit [facility] Medical Group Multispecialty Care - [address], [address] [place] [address] Julio Pulido MD 3 [place] [address] documented as of this encounter Visit Diagnoses Diagnosis Chronic bilateral low back pain without sciatica documented in this encounter Care Teams Audio Visual Facilities Engineer Relationship Specialty Start Date End Date Heriberto Guan MD PCP - General FAMILY MEDICINE SPORTS MEDICINE 11/15/19 08/22/20 documented as of this encounter
--- OUTSIDE RECORDS SUMMARY | 2024-03-15 01:12 | XMS_ITS | Encounter Summary ---
Author Organization [facility] Address [facility] [facility] [place] [address] [place] [address] Care Team Providers Care Barmaid Name Role Phone Juan Pablo Dominguez MD Primary Care Provider Unavailabl e Reason for Visit * Reason Onset Date Comments Blood Pressure 04/06/2020 Encounter Details Date Type Department Care Team (Late Contact Info) Description 04/06/2020 Telephone [facility] Family Medicine - [place] [address] [place] [phone] Juan Pablo Dominguez MD Blood Pressure Social History Tobacco Use Types Packs/Day Years [...] as of this encounter Progress Notes * Donna Norwood - 04/06/2020 1:05 PM CST Radha said she was supposed to call with her bp reading. It is 143/64 CE OFFICER CRIME PREVENTION documented in this encounter Plan of Treatment Upcoming Encounters Date Type Department Care Team (Late Contact Info) Description 04/14/2024 2:00 PM POLICE OFFICER CRIME PREVENTION Office Visit [facility] Multispecialty Care - [address], [address] [place] [address] Julio Pulido MD 3 [place] [address] documented as of this encounter Visit Diagnoses Not on filedocumented in this encounter Care Teams Barmaid Relationship Specialty Start Date End Date Juan Pablo Dominguez MD PCP - General FAMILY MEDICINE SPORTS MEDICINE 11/15/19 08/22/20 documented as of this encounter
--- OUTSIDE RECORDS SUMMARY | 2024-03-15 01:12 | XMS_ITS | Encounter Summary ---
Author Organization [facility] Address [facility] [facility] [place] [address] [place] [address] Care Team Providers Care Ointment Mill Tender Name Role Phone Heriberto Guan MD Primary Care Provider Unavailabl e Reason for Visit * Reason Onset Date Comments Refill Request 07/16/2020 Encounter Details Date Type Department Care Team (Late st Contact Info) Description 07/16/2020 Telephone [facility] Family Medicine [facility] [address] [place] [phone] Heriberto Guan MD Refill Request Social History [...] Progress Notes * Harshal Deal MA - 07/16/2020 3:46 PM CDT Last office visit at this office: Last visit with HERIBERTO GUAN in FAMILY PRACTICE was on: 05/18/2020 in [facility] Future appointment scheduled: Future Appointments Date Time Provider Department Center 07/24/2020 1:00 PM Heriberto Gaun MD [facility] [id number] 08/10/2020 9:00 AM ALEX COVID LAB [facility] ALEX 08/13/2020 11:00 AM ALEX [facility] ALEX Sent refill to pharmacy * Donna Norwood - 07/16/2020 1:54 PM CDT Refill request for gabapentin and lactulose Zacharyvesna Robbins Erin documented in this encounter Plan of Treatment Upcoming Encounters Date Type Department Care Team (Late st Contact Info) Description 04/14/2024 2:00 PM PATIENT EXPERIENCE COORDINATOR Office Visit [facility] Multispecialty Care - [address], [address] [place] [address] Julio Pulido MD 3 [place] [address] documented as of this encounter Visit Diagnoses Diagnosis Back pain Backache, unspecified Constipation, unspecified constipation type documented in this encounter Care Teams Ointment Mill Tender Relationship Specialty Start Date End Date Heriberto Guan MD PCP - General FAMILY MEDICINE SPORTS MEDICINE 11/15/19 08/22/20 documented as of this encounter
--- OUTSIDE RECORDS SUMMARY | 2024-03-15 01:12 | XMS_ITS | Encounter Summary ---
Author Organization [facility] Address [facility] [place] [address] [place] [address] Care Team Providers Care Trolley Cleaner Name Role Phone Juan Pablo Dominguez MD Primary Care Provider Unavailabl e Reason for Visit * Reason Onset Date Comments Concerns 08/07/2020 Encounter Details Date Type Department Care Team (Late st Contact Info) Description 08/07/2020 Telephone [facility] Family Medicine - [place] [address] [address] Juan Pablo Dominguez MD Concerns Social History Tobacco Use Types Packs/Day [...] encounter Progress Notes * Donna Norwood - 08/07/2020 4:22 PM CDT Radha called in because she called her senior program analyst and they told her to call her pcp. She states on Thursday she almost passed out and was sob, she said today she is losing her voice and is lightheaded. When asked if she was still sob she said yes. I spoke with Trina since Dr. Dominguez is out of the office and she recommended that Radha go to the ER and I informed Radha of her recommendation. documented in this encounter Plan of Treatment Upcoming Encounters Date Type Department Care Team (Late st Contact Info) Description 04/14/2024 2:00 PM SED SPECIAL EDUCATION TEACHER Office Visit [facility] Multispecialty Care - [facility] [address] [facility], [address] [place] [id number] Julio Pulido MD 3 [place] [address] documented as of this encounter Visit Diagnoses Not on filedocumented in this encounter Care Teams Trolley Cleaner Relationship Specialty Start Date End Date Juan Pablo Dominguez MD PCP - General FAMILY MEDICINE SPORTS MEDICINE 11/15/19 08/22/20 documented as of this encounter
--- OUTSIDE RECORDS SUMMARY | 2024-03-15 01:12 | XMS_ITS | Encounter Summary ---
Author Organization [facility] Address [address] [place] [address]. [place] [address] [place] [address] Care Team Providers Care Program Instructor Name Role Phone Juan Pablo Dominguez MD Primary Care Provider Unavailabl e Encounter Details Date Type Department Care Team (Latest Contact Info) Description 02/03/2020 Travel Social History Tobacco Use Types Packs/Day [...] COVID-19? No / Unsure 02/03/2020 12:55 PM FUNCTIONAL TESTER TYPEWRITERS documented as of this encounter Plan of Treatment Upcoming Encounters Date Type Department Care Team (Late st Contact Info) Description 04/14/2024 2:00 PM FUNCTIONAL TESTER TYPEWRITERS Office Visit [facility] Medical [facility] Multispecialty Care - [address], [address] [place] [id number] Julio Pulido MD [address] [place] [address] documented as of this encounter Visit Diagnoses Not on filedocumented in this encounter Care Teams Program Instructor Relationship Specialty Start Date End Date Juan Pablo Dominguez MD PCP - General FAMILY MEDICINE SPORTS MEDICINE 11/15/19 08/22/20 documented as of this encounter
--- OUTSIDE RECORDS SUMMARY | 2024-03-15 01:12 | XMS_ITS | Encounter Summary ---
Author Organization [facility] Address [address] [place] [address]. [place] [address] [place] [address] Care Team Providers Care Mixing Machine Tender Name Role Phone Juan Pablo Dominguez MD Primary Care Provider Unavailabl e Encounter Details Date Type Department Care Team (Latest Contact Info) Description 07/24/2020 Travel Social History Tobacco Use Types Packs/Day [...] st Contact Info) Description 04/14/2024 2:00 PM PHYSICS DEPARTMENT CHAIR Office Visit [facility] Medical Group Multispecialty Care - [address], [address] [place] [address] Julio Pulido MD [address] [place] [address] documented as of this encounter Visit Diagnoses Not on filedocumented in this encounter Care Teams Mixing Machine Tender Relationship Specialty Start Date End Date Juan Pablo Dominguez MD PCP - General FAMILY MEDICINE SPORTS MEDICINE 11/15/19 08/22/20 documented as of this encounter
--- OUTSIDE RECORDS SUMMARY | 2024-03-15 01:12 | XMS_ITS | Encounter Summary ---
Author Organization [facility] Address [address] [place] [address]. [place] [address] [place] [address] Care Team Providers Care Control Supervisor Name Role Phone Juan Pablo Dominguez MD Primary Care Provider Unavailabl e Reason for Visit * Reason Comments PFT (SCAN) Encounter Details Date Type Department Care Team (Latest Contact Info) Description 02/17/2020 Scan HEALTH INFO SRVCS Scanned, Documents PFT [...] have Coronavirus / COVID-19? No / Unsure 02/27/2020 1:00 PM SURVEY RESEARCH PROFESSOR documented as of this encounter Plan of Treatment Upcoming Encounters Date Type Department Care Team (Late st Contact Info) Description 04/14/2024 2:00 PM SURVEY RESEARCH PROFESSOR Office Visit [facility] Medical Group Multispecialty Care - [address], [address] [place] [address] Julio Pulido MD [address] [place] [address] documented as of this encounter Procedures Procedure Name Priority Date/Time Associated Diagnosis Comments PFT GENERIC (SCAN ORDER) 02/17/2020 documented in this encounter Results * PFT GENERIC (02/17/2020) 02/17/2020 Narrative 02/17/2020 Ordered by an unspecified provider. us Documents Scanned SCANNING Final Result documented in this encounter Visit Diagnoses Not on filedocumented in this encounter Care Teams Control Supervisor Relationship Specialty Start Date End Date Juan Pablo Dominguez MD PCP - General FAMILY MEDICINE SPORTS MEDICINE 11/15/19 08/22/20 documented as of this encounter
--- OUTSIDE RECORDS SUMMARY | 2024-03-15 01:12 | XMS_ITS | Encounter Summary ---
Author Organization [facility] Address [address] [place] [address]. [place] [address] [place] [address] Care Team Providers Care Trim Carpenter Name Role Phone Juan Pablo Dominguez MD Primary Care Provider Unavailabl e Reason for Visit * Reason Comments Image (SCAN) Lab (SCAN) Encounter Details Date Type Department Care Team ([facility] Contact Info) Description 02/27/2020 Scan HEALTH INFO SRVCS Scanned, Documents Image (SCAN); Lab (SCAN) Social History Tobacco [...] COVID-19? No / Unsure 02/27/2020 1:00 PM OFFAL ICER POULTRY documented as of this encounter Plan of Treatment Upcoming Encounters Date Type Department Care Team ([facility] Contact Info) Description 04/14/2024 2:00 PM OFFAL ICER POULTRY Office Visit [facility] Medical Group Multispecialty Care - [address], [address] [place] [address] Julio Pulido MD [address] [place] [address] documented as of this encounter Procedures Procedure Name Priority Date/Time Associated Diagnosis Comments OUTSIDE PT/INR (SCAN ORDER) 02/27/2020 IMAGE GENERIC 02/27/2020 documented in this encounter Results * OUTSIDE PT/INR (SCAN) (02/27/2020) 02/27/2020 Narrative 02/27/2020 Ordered by an unspecified provider. us Documents Scanned SCANNING Final Result * IMAGE GENERIC (02/27/2020) Anatomical Region Laterality Modality Other 02/27/2020 Narrative 02/27/2020 Ordered by an unspecified provider. us Documents Scanned SCANNING Final Result documented in this encounter Visit Diagnoses Not on filedocumented in this encounter Care Teams Trim Carpenter Relationship Specialty Start Date End Date Juan Pablo Dominguez MD PCP - General FAMILY MEDICINE SPORTS MEDICINE 11/15/19 08/22/20 documented as of this encounter
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
--- OUTSIDE RECORDS SUMMARY | 2024-03-15 01:12 | XMS_ITS | Encounter Summary ---
Author Organization [facility] Address [facility] [place] [address] [place] [address] Care Team Providers Care Planning Director Name Role Phone Heriberto Guan MD Primary Care Provider Unavailabl e Reason for Referral * Consultation (Routine) - Closed Specialty Diagnoses / Procedures Referred By Ian malagon Referred To Contact ORTHOPAEDIC SURGERY / ORTHOPAEDICS Diagnoses Metatarsalgia of left foot Hallux valgus (acquired), left foot Heriberto Guan MD McCarthy, Kevin J, MD Phone: tel: fax: Referral ID Status Reason Start Date Expiration Date V isits Requested Visits Authorized [id number] Closed Specialty Services 08/14/2020 03/08/2021 6 6 Reason for Visit * Reason Comments Follow Up follow-up, would lik e a refill on pain meds Encounter Details Date Type Department Care Team (Late st Contact Info) Description 07/24/2020 1:00 PM CDT Office Visit [facility] Medical Group Family Medicine - [place] [address] [address] Heriberto Guan MD Follow Up (follow-up, would like a refill on pain meds) Social History Tobacco Use Types Packs/Day Years [...] Sign Reading Time Taken Comments Blood Pressure 144/82 07/24/2020 2:30 PM CDT Pulse 76 07/24/2020 1:07 PM CDT Temperature 36.2 ??C (97.2 ??F) 07/24/2020 1:07 PM CD T Respiratory Rate 18 07/24/2020 1:07 PM CDT Oxygen Saturation 98% 07/24/2020 1:07 PM CDT Inhaled Oxygen Concentration - - Weight 90.3 kg (199 lb) 07/24/2020 1:07 PM CDT Height 162.6 cm (5' 4 ) 07/24/2020 1:07 PM CDT Body Mass Index 34.16 07/24/2020 1:07 PM CDT documented in this encounter Progress Notes * Heriberto Guan MD - 07/24/2020 1:00 PM CDT Reason for Visit: Follow Up (follow-up, would like a refill on pain meds) History of Present Illness: HPI Continues on chronic anticoagulation due to having a aortic valve placement. ?? January 11 I personally reviewed the patient's chart along with her echocardiogram there was no concern for her diastolic heart failure. Patient takes amiodarone 100 mg daily patient is taking Coumadin 6 mg daily except for Fridays I previously checked her INR which was 1.9 and wass in therapeutic range. Today's INR was 1.0 completelyout of therapeutic range. I asked the patient if she was taking her medications as prescribed and she states that she is. We have had multiple difficulties with her taking medications as prescribed and not completing the laboratory panels that I have repeatedly printed for the patient. I also placed a referral for memory clinic back in November at that point there was no provider and still no provider today therefore the request was switched over to neurology per the recommendation of the referrals and it is now several months without confirmation. Currently is for memory and taking medications appropriately Location:bottom of foot left Quality:sore, throbbing Severity:4-5/10 Duration:3 months Timing:daily Modifying factors:prolonged standing and walking Associated symptoms:none Medications: Current Outpatient Medications: ??? albuterol sulfate [...] Disp: 90 tablet, Rfl: 1 ??? furosemide 40 MG tablet, Take 40 mg by mouth daily., Disp: , Rfl: ??? gabapentin 300 MG capsule, Take 1 capsule (300 mg total) by mouth 2 (two) times daily., Disp: 180 capsule, Rfl: 0 ??? lactulose 10 GM/15ML solution, Take 15 mLs (10 g total) by mouth 2 (two) times daily. May startwith one time daily for 2 days then increase to two times daily if not the desired effect, Disp: 300 mL, Rfl: 0 ??? lisinopril 2.5 MG tablet, [...] ON Thursday AND THURSDAY., Disp: , Rfl: ??? CONTOUR NEXT TEST test strip, USE 1 STRIP TO CHECK GLUCOSE THREE TIMES DAILY, Disp: , Rfl: ??? diclofenac sodium 1 % gel, Apply 2 g topically 4 (four) times daily., Disp: 50 g, Rfl: 0 ??? DOK 100 MG capsule, TAKE 1 CAPSULE BY MOUTH TWICE DAILY NEEDED, Disp: , Rfl: ??? fluticasone propionate 50 MCG/ACT nasal spray, 2 sprays by Each Nostril route daily., Disp: , Rfl: ??? HYDROcodone-acetaminophen 10-325 MG tablet, Take 1 tablet by mouth daily. Indications: Chronic Pain, Disp: 30 tablet, Rfl: 0 Allergies Allergen Reactions ??? Bacitracin [...] Alcohol use: Not Currently ??? Drug use: Never Family History Problem Relation Name Age of [...] flank pain and frequency. Musculoskeletal: Positive for joint pain and myalgias. Negative for back pain, falls and neck pain. Skin: Negative for itching and rash. Neurological: Negative for tingling and weakness. Endo/Heme/Allergies: Negative for polydipsia. Does not bruise/bleed easily. Psychiatric/Behavioral: Negative for depression. The patient is not nervous/anxious. Physical Exam Constitutional: She is oriented to person, place, and time. Vital signs are normal. She appears well-developed and well-nourished. No distress. HENT: Head: Normocephalic and atraumatic. Right Ear: Hearing and external ear normal. Left Ear: Hearing and external ear normal. Nose: Right sinus exhibits no maxillary sinus tenderness and no frontal sinus tenderness. Left sinus exhibits no maxillary sinus tenderness and no frontal sinus tenderness. Mouth/Throat: Mucous membranes are normal. No posterior oropharyngeal edema. Eyes: Pupils are equal, round, and reactive to light. Conjunctivae and EOM are normal. Right eye exhibits no discharge. Left eye exhibits no discharge. No scleral icterus. Neck: Trachea normal. No hepatojugular reflux and no JVD present. Carotid bruit is not present. No tracheal deviation present. No thyroid mass and no thyromegaly present. Cardiovascular: Normal rate, regular rhythm, S1 normal, S2 normal, normal heart sounds, intact distal pulses and normal pulses. PMI is not displaced. Exam reveals no gallop, no S3, no S4, no distant heart sounds and no friction rub. No murmur heard. Pulses: Carotid pulses are 2+ on the right side and 2+ on the left side. Radial pulses are 2+ on the right side and 2+ on the left side. Dorsalis pedis pulses are 2+ on the right side and 2+ on the left side. Posterior tibial pulses are 2+ on the right side and 2+ on the left side. Pulmonary/Chest: Effort normal and breath sounds normal. No accessory muscle usage or stridor. No tachypnea. No respiratory distress. She has no decreased breath sounds. She has no wheezes. She has no rhonchi. She has no rales. Chest wall is not dull to percussion. She exhibits no mass, no tenderness, no bony tenderness, no laceration, no crepitus, no edema, no deformity, no swelling and no retraction. Abdominal: Soft. Normal appearance, normal aorta and bowel sounds are normal. She exhibits no shifting dullness, no distension, no abdominal bruit, no ascites and no mass. There is no hepatosplenomegaly. There is no abdominal tenderness. There is no rebound and no guarding. Musculoskeletal: Cervical back: Normal range of motion and neck supple. No erythema or rigidity. Normal range of motion. Comments: Patient has severe hallux valgus and positive for metatarsalgia left foot Lymphadenopathy: She has no cervical adenopathy. Neurological: She is alert and oriented to person, place, and time. Skin: Skin is warm and dry. No rash noted. She is not diaphoretic. No erythema. No pallor. Psychiatric: She has a normal mood and affect. Her behavior is normal. Nursing note and vitals reviewed. Ortho Exam Filed Vitals: 07/24/20 1307 Weight: 90.3 kg (199 lb) Height: 5' 4 (1.626 m) Screening forms: PHQ-9: PHQ-9: Over the last two weeks, how often have you been bothered by any of the following problems? 12/12/2019 LITTLE INTEREST OR PLEASURE IN DOING THINGS 1-Several Days FEELING DOWN, DEPRESSSED,OR HOPELESS 1-Several Days PHQ2 DEPRESSION TOTAL SCORE 2 RAY-7 (Generalized Anxiety Disorder) Screening No flowsheet data found. Assessment/Recommendations/Plan 1. H/O mechanical aortic valve replacement I have ordered the following: - PROTIME/INR, FINGERSTICK - CBC W/DIFF AUTOMATED; Future - COMPREHENSIVE METABOLIC PANEL; Future Needs to continue taking the Coumadin 6 mg daily as instructed. I specifically enforced the importance of taking this medication as directed. I also made her aware that if she continues to take it inappropriately her INR will be out of therapeutic range and the possibility of clotting is higher if her INR is only 1.0. I have put standing orders for her to continuously get an INR on a monthly basis she may also get it every 7 days until back into therapeutic range 2. Hypertensive heart disease with congestive heart failure, unspecified heart failure type (CMS/HCC) I have ordered: - LIPOPROTEIN-ASSOCIATED PHOSPHOLIPASE A2; Future - CBC W/DIFF AUTOMATED; Future - COMPREHENSIVE METABOLIC PANEL; Future - LIPID PANEL; Future Continue the amiodarone Continue Lasix 40 mg daily Continue the Potassium as prescribed by cardiology 3. Dyslipidemia associated with type 2 diabetes mellitus ([facility] [place] [facility]) Continue the atorvastatin 10 mg daily - THYROID STIM HORMONE, TSH; Future - LIPID PANEL; Future 4. Hypercalcemia I have ordered: - PTH - INTACT; Future - CALCIUM URINE 24 HR; Future 5. Hyperglycemia - HEMOGLOBIN, GLYCOSYLATED; Future 6. Metatarsalgia of left foot - Ambulatory referral to Podiatry (Ortho F&A Specialist- O? [place]) 7. Hallux valgus (acquired), left foot Patient is interested in hearing about surgical options: - Ambulatory referral to Podiatry (Ortho F&A Specialist- O? [place]) 8. Chronic bilateral low back pain without sciatica [...] and follow the directions on the label. Encourage following a low fat, low carb diet, encorperate whole foods such as fresh fruits and vegetables and whole grains into your diet, encourage 5 small meals per day. Avoid sugar-sweetened beverages, added sugars, processed meats, refined grains and oils or other processed foods. Encourage to get at least 150 minutes of moderate aerobic activity activity a week, or a combination of moderate and vigorous activity.Discussed routine labs, preventative screenings, vaccinations, blood pressure, weight at today's visit. Follow up: once labs are completed Health Reminders Please take medication as prescribed Still awaiting memory clinic or evaluation for memory HERIBERTO GUAN MD 07/24/2020 1:15 PM documented in this encounter Plan of Treatment Upcoming Encounters Date Type Department Care Team (Late st Contact Info) Description 04/14/2024 2:00 PM PRODUCT APPLICATIONS SCIENTIST Office Visit [facility] Medical Group Multispecialty Care - [facility] [address] [facility], [address] [place] [address] Julio Pulido MD 3 [place] [address] Scheduled Referrals Name Type Priority Associated Diagnoses Orde r Schedule Ambulatory referral to Podiatry (Ortho F&A Specialist- O? [place]) Referral Routine Metatarsalgia of left foot Hallux valgus (acquired), left foot Ordered: 07/24/2020 documented as of this encounter Procedures Procedure Name Priority Date/Time Associated Diagnosis Comments PROTHROMBIN TIME, FINGERSTICK Routine 07/24/2020 H/O mechanical aortic valve replacement documented in this encounter Results * PROTIME/INR, FINGERSTICK (07/24/2020) INR WHOLE BLOOD 1.00 MG[address], [place] 07/24/2020 us Heriberto Guan MD LABORATORY Final Result [address] [place] [address] [facility] [address] [place] [address], [place] [phone] documented in this encounter Visit Diagnoses Diagnosis H/O mechanical aortic valve replacement- Primary Heart valve replaced by other means Hypertensive heart disease with congestive heart failure, unspecified heart failure type ([facility] [place] HHS/HCC) Dyslipidemia associated with type 2 diabetes mellitus ([facility]) Type II or unspecified type diabetes mellitus with other specified manifestations, not stated as uncontrolled Hypercalcemia Hyperglycemia Other abnormal glucose Metatarsalgia of left foot Enthesopathy of ankle and tarsus, unspecified Hallux valgus (acquired), left foot Chronic bilateral low back pain without sciatica documented in this encounter Care Teams Planning Director Relationship Specialty Start Date End Date Heriberto Guan MD PCP - General FAMILY MEDICINE SPORTS MEDICINE 11/15/19 08/22/20 documented as of this encounter
--- OUTSIDE RECORDS SUMMARY | 2024-03-15 01:12 | XMS_ITS | Encounter Summary ---
Author Organization [facility] Address [facility] [place] [address] [place] [address] Care Team Providers Care Executive Manager Name Role Phone Juan Pablo Dominguez MD Primary Care Provider Unavailabl e Reason for Visit * Reason Comments Esophageal Stricture * Consultation/Treatment (Routine) - Closed Specialty Diagnoses / Procedures Referred By Ian malagon Referred To Contact GASTROENTEROLOGY Diagnoses Esophageal stricture Juan Pablo Dominguez MD Kim, Peter S, MD 3 [facility] [place] [address] [place] [address] Phone: tel: fax: Referral ID Status Reason Start Date Expiration Date Visits Re quested Visits Authorized [id number] Closed 06/30/2020 06/30/2021 6 6 Encounter Details Date Type Department Care Team (Latest Contact Info) Description 07/04/2020 2:40 PM CDT Office Visit [facility] Medical Group Multispecialty Care - [facility] [address] [facility] [place] [address] Annalee Leyva MD 3 [facility] [place] [address] [place] [id number] Esophageal Stricture Social History Tobacco Use Types Packs/Day Years [...] Sign Reading Time Taken Comments Blood Pressure 132/84 07/04/2020 2:33 PM CDT Pulse - - Temperature - - Respiratory Rate - - Oxygen Saturation - - Inhaled Oxygen Concentration - - Weight 90.7 kg (200 lb) 07/04/2020 2:33 PM CDT Height 162.6 cm (5' 4 ) 07/04/2020 2:33 PM CDT Body Mass Index 34.33 07/04/2020 2:33 PM CDT documented in this encounter Progress Notes * Annalee Leyva MD - 07/04/2020 2:40 PM CDT Images from the original note were not included. Gastroenterology Initial Visit Reason for Visit: Esophageal Stricture History of Present Illness: 75-year-old female with a mechanical heart valve on Coumadin the. She has been experiencing troubleswallowing for some time now. That she says that she will eat some solid food and drink some liquidand then have to vomited up immediately. However she has had no weight loss. She is on chronic antic oagulation for mechanical aortic valve placed replacement in 2003. She is also on amiodarone and Coumadin. No weight loss. ROS: General: No fever, chills, malaise, fatigue, weight loss or gain HEENT: No acute changes in vision or hearing Respiratory: No shortness of breath, cough, sputum production, hemoptysis Cardiovascular: No chest pain, palpitations, orthopnea Gastrointestinal: As per HPI Musculoskeletal: No dysuria, hematuria, incontinence Neuro: No extremity edema, myalgia Hematology: No easy bruising, bleeding Skin: No new skin rashes or lesions Medications: Current Outpatient Medications: ??? albuterol sulfate [...] ON Thursday AND THURSDAY., Disp: , Rfl: Allergies: Allergies Allergen Reactions ??? Bacitracin Other (see comment) ??? Benzalkonium Other (see comment) ??? Gramicidin Other (see comment) ??? Hydrocortisone Other (see comment) ??? Neomycin Other (see comment) ??? Polymyxin B Other (see comment) Medical History: Past Medical History: Diagnosis Date ??? Anxiety ??? Atrial flutter (CMS/HCC) ??? Cataract ??? Diabetes mellitus (CMS/HCC) ??? H/O mechanical aortic valve replacement 2003 ??? Hypertension Surgical History: Past Surgical History: Procedure Laterality Date ??? REPAIR HEART WOUND Social History: Family History: Family History Problem Relation Name Age of Onset ??? Heart Father ??? Heart Mother PE: Filed Vitals: 07/04/20 1433 BP: 132/84 Weight: 90.7 kg (200 lb) Height: 5' 4 (1.626 m) General: In NAD, pleasant and appropriate HEENT: Anicteric Cardiovascular: RRR, no m Pulmonary: CTA BL, no added sounds Abdomen: Soft, ND/NT, normoactive BS Skin: Anicteric, no rashes Neuro: A&Ox3 Labs: Diagnoses/Impression: Occasional dysphagia symptoms. Complex history with patient having mechanical aortic valve and on chronic anticoagulation with Coumadin. She was certainly be at high risk for bleeding and valve infection. Recommendations and Plan: ?? Barium swallow first. Depending on the results of the barium swallow she may need an upper endoscopy. ?? All questions answered ?? More recommendations to follow endoscopic evaluation Risks/Benefits/Options: Patient presented with risks (can include but are not limited to: discomfort, missing lesions, allergic or adverse reaction to the sedation, perforation of the bowel which may require hospitaliztion and surgery, bleeding, infection, aspiration), benefits, and alternatives to the procedure(s) and they are in agreement to proceed as planned. ANNALEE LEYVA MD 07/04/2020 Voice recognition software utilized documented in this encounter Plan of Treatment Upcoming Encounters Date Type Department Care Team (Late st Contact Info) Description 04/14/2024 2:00 PM DATABASE REPORTING CONSULTANT Office Visit [facility] Medical [facility] Mult[facility]pecialty Care - [facility] [address] [facility], [address] [place] [address] Julio Pulido MD 3 [place] [address] documented as of this encounter Visit Diagnoses Diagnosis Esophageal dysphagia- Primary Dysphagia, pharyngoesophageal phase documented in this encounter Care Teams Executive Manager Relationship Specialty Start Date End Date Juan Pablo Dominguez MD PCP - General FAMILY MEDICINE SPORTS MEDICINE 11/15/19 08/22/20 documented as of this encounter
--- OUTSIDE RECORDS SUMMARY | 2024-03-15 01:12 | XMS_ITS | Encounter Summary ---
Author Organization [facility] Address [facility] [facility] [place] [address] [place] [address] Care Team Providers Care Trim Technician Name Role Phone Juan Pablo Dominguez MD Primary Care Provider Unavailabl e Reason for Visit * Reason Onset Date Comments Arthritis 04/10/2020 Encounter Details Date Type Department Care Team (Late st Contact Info) Description 04/10/2020 Telephone [facility] Medical Group Family Medicine - [place] [address] [address] Juan aPblo Dominguez MD Arthritis Social History Tobacco Use Types Packs/Day Years [...] Progress Notes * Harshal Deal MA - 04/11/2020 10:58 AM CST Do you want to refer her to ortho or talk with her about shot? CE SERVICES MANAGER * Donna Norwood - 04/10/2020 12:23 PM CST Radha called in because she is having a lot of arthritis pain in her hands, mainly her thumbs. She said the pain medication isn't relieving it. She is wondering if there is anything else she can do or take that will help. CE SERVICES MANAGER documented in this encounter Plan of Treatment Upcoming Encounters Date Type Department Care Team (Late st Contact Info) Description 04/14/2024 2:00 PM OFFICE SERVICES MANAGER Office Visit [facility] Medical Group Multispecialty Care - [facility] [address] [facility], [address] [place] [phone] Julio Pulido MD 3 [place] [address] documented as of this encounter Visit Diagnoses Not on filedocumented in this encounter Care Teams Trim Technician Relationship Specialty Start Date End Date Juan Pablo Dominguez MD PCP - General FAMILY MEDICINE SPORTS MEDICINE 11/15/19 08/22/20 documented as of this encounter
--- OUTSIDE RECORDS SUMMARY | 2024-03-15 01:12 | XMS_ITS | Encounter Summary ---
Author Organization [facility] Address [facility] [facility] [place] [address] [place] [address] Care Team Providers Care Transportation Coordinator Name Role Phone Juan Pablo Dominguez MD Primary Care Provider Unavailabl e Reason for Visit * Reason Onset Date Comments Sinus Problem 05/21/2020 Encounter Details Date Type Department Care Team (Late st Contact Info) Description 05/21/2020 Telephone [facility] Medical Group Family Medicine [facility] [address] [phone] Juan Pablo Dominguez MD Sinus Problem Social History Tobacco Use Types Packs/Day [...] have Coronavirus / COVID-19? No / Unsure 05/18/2020 3:32 PM GAMEPLAY PROGRAMMER documented as of this encounter Progress Notes * Juan Pablo Dominguez MD - 2020 10:13 AM CDT I called her and called in two nasal sprays on 05/21/20 * Harshal Deal MA - 05/21/2020 10:59 AM CDT Patient calling, she has a headache, sinus congestion, sore throat and ear pain. Started last couple days and she states getting worse each day. Do you want to see her or do a phone call? She can not do a video visit. documented in this encounter Plan of Treatment Upcoming Encounters Date Type Department Care Team (Late st Contact Info) Description 04/14/2024 2:00 PM GAMEPLAY PROGRAMMER Office Visit [facility] Medical Group Multispecialty Care - [facility] [address] [facility], [address] [place] [phone] Julio Pulido MD 3 [place] [address] documented as of this encounter Visit Diagnoses Not on filedocumented in this encounter Care Teams Transportation Coordinator Relationship Specialty Start Date End Date Juan Pablo Dominguez MD PCP - General FAMILY MEDICINE SPORTS MEDICINE 11/15/19 08/22/20 documented as of this encounter
--- OUTSIDE RECORDS SUMMARY | 2024-03-15 01:12 | XMS_ITS | Encounter Summary ---
Author Organization [facility] Address [facility] [place] [address] [place] [address] Care Team Providers Care Photographic Platemaker Name Role Phone Juan Pablo Dominguez MD Primary Care Provider Unavailabl e Reason for Visit * Reason Onset Date Comments Orders 07/30/2020 Encounter Details Date Type Department Care Team (Late st Contact Info) Description 07/30/2020 Telephone [facility] Medical Group Family Medicine [facility] [address] [place] [phone] Juan Pablo Dominguez MD Orders Social History Tobacco Use Types Packs/Day [...] Progress Notes * Harshal Deal MA - 07/30/2020 1:30 PM CDT Order changed * Donna Norwood - 07/30/2020 12:05 PM CDT ALEX scheduling called and said that the order needs to be corrected to just say nm parathyroid scan documented in this encounter Plan of Treatment Upcoming Encounters Date Type Department Care Team (Late st Contact Info) Description 04/14/2024 2:00 PM LOAD TALLIER Office Visit [facility] Medical Group Multispecialty Care - [facility] [address] [facility], [address] [place] [address] Julio Pulido MD 3 [place] [address] documented as of this encounter Visit Diagnoses Not on filedocumented in this encounter Care Teams Photographic Platemaker Relationship Specialty Start Date End Date Juan Pablo Dominguez MD PCP - General FAMILY MEDICINE SPORTS MEDICINE 11/15/19 08/22/20 documented as of this encounter
--- OUTSIDE RECORDS SUMMARY | 2024-03-15 01:12 | XMS_ITS | Encounter Summary ---
Author Organization [facility] Address [address] [place] [address]. [place] [address] [place] [address] Care Team Providers Care Lawn Mower Mechanic Name Role Phone Juan Pablo Dominguez MD Primary Care Provider Unavailabl e Encounter Details Date Type Department Care Team (Late Contact Info) Description 02/16/2020 Orders Only [address] [place] [address] Harshal Deal MA Social History Tobacco Use Types Packs/Day Years [...] COVID-19? Unable to assess 02/06/2020 2:59 PM ROPEWALK ROPE MAKER documented as of this encounter Progress Notes * Harshal Deal MA - 02/16/2020 12:39 PM CST WALK ROPE MAKER documented in this encounter Plan of Treatment Upcoming Encounters Date Type Department Care Team (Late Contact Info) Description 04/14/2024 2:00 PM ROPEWALK ROPE MAKER Office Visit [facility] Multispecialty Care - [facility] [address] [facility], [address] [place] [phone] Julio Pulido MD 3 [place] [address] documented as of this encounter Visit Diagnoses Not on filedocumented in this encounter Care Teams Lawn Mower Mechanic Relationship Specialty Start Date End Date Juan Pablo Dominguez MD PCP - General FAMILY MEDICINE SPORTS MEDICINE 11/15/19 08/22/20 documented as of this encounter
--- OUTSIDE RECORDS SUMMARY | 2024-03-15 01:12 | XMS_ITS | Encounter Summary ---
Author Organization [facility] Address [facility] [facility] [place] [address] [place] [address] Care Team Providers Care Art Critic Name Role Phone Juan Pablo Dominguez MD Primary Care Provider Unavailabl e Reason for Visit * Reason Onset Date Comments Results 02/10/2020 INR & xray Encounter Details Date Type Department Care Team (Late st Contact Info) Description 02/10/2020 Telephone [facility] Family Medicine - [place] [address] [facility] [address] [place] [address] Juan Pablo Dominguez MD Results (INR & xray) Social History Tobacco Use Types Packs/Day Years [...] COVID-19? Unable to assess 02/06/2020 2:59 PM STUNNER documented as of this encounter Progress Notes * Harshal Deal MA - 02/10/2020 9:37 AM CST I spoke with patient regarding INR results and spine x-rays. She voiced her understanding and I am going to put in a monthly standing order for patient to have INR drawn. Patient can come to office each month to have INR done if she prefers. NER * Harshal Deal MA - 02/10/2020 9:33 AM CST ----- Message from Juan Pablo Dominguez MD sent at 02/06/2020 3:51 PM STUNNER ----- 1. No acute radiographic abnormality identified. 2. Diffuse arthritis. 3. Significant atherosclerotic calcifications NER documented in this encounter Plan of Treatment Upcoming Encounters Date Type Department Care Team (Late st Contact Info) Description 04/14/2024 2:00 PM STUNNER Office Visit [facility] Multispecialty Care - [address], [address] [place] [address] Julio Pulido MD [address] [place] [address] documented as of this encounter Visit Diagnoses Diagnosis Chronic anticoagulation- Primary Encounter for long-term (current) use of anticoagulants documented in this encounter Care Teams Art Critic Relationship Specialty Start Date End Date Juan Pablo Dominguez MD PCP - General FAMILY MEDICINE SPORTS MEDICINE 11/15/19 08/22/20 documented as of this encounter
--- OUTSIDE RECORDS SUMMARY | 2024-03-15 01:12 | XMS_ITS | Encounter Summary ---
Author Organization [facility] Address [address] [place] [address]. [place] [address] [place] [address] Care Team Providers Care Robotics Mechanic Name Role Phone Juan Pablo Dominguez MD Primary Care Provider Unavailabl e Reason for Referral * Consultation (Routine) - Closed Specialty Diagnoses / Procedures Referred By Contact Referred To Contact CARDIOVASCULAR DISEASE Diagnoses Coronary atherosclerosis of soboba coronary artery Juan Pablo Dominguez MD Uppstrom, Erica L, MD Phone: tel:[phone] fax:[phone] Referral ID Status Reason Start Date Expiration Date V isits Requested Visits Authorized [id number] Closed Specialty Services 03/08/2020 03/08/2021 6 6 Scheduling Instructions Christiane Carrera MD [facility] attention [place] SPECIAL EDUCATION TEACHER Reason for Visit * Reason Onset Date Comments Referral Request 03/08/2020 Encounter Details Date Type Department Care Team (Late st Contact Info) Description 03/08/2020 Telephone [facility] Family Medicine - [place] [address] [address] Juan Pablo Dominguez MD Referral Request Social History Tobacco Use Types [...] COVID-19? No / Unsure 02/27/2020 1:00 PM BD SPECIAL EDUCATION TEACHER documented as of this encounter Progress Notes * Harshal Deal MA - 03/08/2020 11:03 AM CST Referral sent SPECIAL EDUCATION TEACHER documented in this encounter Plan of Treatment Upcoming Encounters Date Type Department Care Team (Late st Contact Info) Description 04/14/2024 2:00 PM BD SPECIAL EDUCATION TEACHER Office Visit [facility] Multispecialty Care - [facility] [address] [facility], [address] [place] [address] Julio Pulido MD 3 [place] [address] Scheduled Referrals Name Type Priority Associated Diagnoses Orde r Schedule Ambulatory referral to Cardiology, Adult (OTHER) Referral Routine Coronary atherosclerosis of soboba coronary artery Ordered: 03/08/2020 documented as of this encounter Visit Diagnoses Diagnosis Coronary atherosclerosis of soboba coronary artery- Primary documented in this encounter Care Teams Robotics Mechanic Relationship Specialty Start Date End Date Juan Pablo Dominguez MD PCP - General FAMILY MEDICINE SPORTS MEDICINE 11/15/19 08/22/20 documented as of this encounter
--- OUTSIDE RECORDS SUMMARY | 2024-03-15 01:12 | XMS_ITS | Encounter Summary ---
Author Organization [facility] Address [address] [place] [address]. [place] [address] [place] [address] Care Team Providers Care Academic Physician Name Role Phone Juan Pablo Dominguez MD Primary Care Provider Unavailabl e Encounter Details Date Type Department Care Team (Latest Contact Info) Description 02/27/2020 Travel Social History Tobacco Use Types Packs/Day [...] COVID-19? No / Unsure 02/27/2020 1:00 PM TAPER/FINISHER documented as of this encounter Plan of Treatment Upcoming Encounters Date Type Department Care Team (Late st Contact Info) Description 04/14/2024 2:00 PM TAPER/FINISHER Office Visit [facility] Multispecialty Care - [address], [address] [place] [phone] Julio Pulido MD [address] [place] [address] documented as of this encounter Visit Diagnoses Not on filedocumented in this encounter Care Teams Academic Physician Relationship Specialty Start Date End Date Juan Pablo Dominguez MD PCP - General FAMILY MEDICINE SPORTS MEDICINE 11/15/19 08/22/20 documented as of this encounter
--- OUTSIDE RECORDS SUMMARY | 2024-03-15 01:12 | XMS_ITS | Encounter Summary ---
Author Organization [facility] Address [address] [place] [address]. [place] [address] [place] [address] Care Team Providers Care Manufacturing Operations Manager Name Role Phone Juan Pablo Domniguez MD Primary Care Provider Unavailabl e Encounter Details Date Type Department Care Team (Latest Contact Info) Description 05/18/2020 Travel Social History Tobacco Use Types Packs/Day [...] COVID-19? No / Unsure 05/18/2020 3:32 PM BAIT MAN documented as of this encounter Plan of Treatment Upcoming Encounters Date Type Department Care Team (Late st Contact Info) Description 04/14/2024 2:00 PM BAIT MAN Office Visit [facility] Multispecialty Care - [address], [address] [place] [phone] Julio Pulido MD [address] [place] [address] documented as of this encounter Visit Diagnoses Not on filedocumented in this encounter Care Teams Manufacturing Operations Manager Relationship Specialty Start Date End Date Juan Pablo Dominguez MD PCP - General FAMILY MEDICINE SPORTS MEDICINE 11/15/19 08/22/20 documented as of this encounter
--- OUTSIDE RECORDS SUMMARY | 2024-03-15 01:12 | XMS_ITS | Encounter Summary ---
Author Organization [facility] Address [address] [place] [address]. [place], [place] [address] [place] [address] Care Team Providers Care Ocularist Name Role Phone Juan Pablo Dominguez MD Primary Care Provider Dianne Wells RN Unavailable [phone] Reason for Visit * Reason Comments ECG (SCAN) Image (SCAN) CT (SCAN) Encounter Details Date Type Department Care Team ([facility] Contact Info) Description 08/07/2020 Scan HEALTH INFO SRVCS Scanned, Documents ECG (SCAN); Image (SCAN); CT (SCAN) Social History Tobacco [...] Upcoming Encounters Date Type Department Care Team ([facility] Contact Info) Description 04/14/2024 2:00 PM CHICKEN BUYER Office Visit [facility] Multispecialty Care - [address], [address] [place] [address] Julio Pulido MD 3 [place] [address] documented as of this encounter Procedures Procedure Name Priority Date/Time Associated Diagnosis Comments CT GENERIC 08/07/2020 CT GENERIC 08/07/2020 CT GENERIC 08/07/2020 ECG GENERIC (SCAN ORDER) 08/07/2020 ECG GENERIC (SCAN ORDER) 08/07/2020 ECG GENERIC (SCAN ORDER) 08/07/2020 ECG GENERIC (SCAN ORDER) 08/07/2020 IMAGE GENERIC 08/07/2020 IMAGE GENERIC 08/07/2020 documented in this encounter Results * CT GENERIC (08/07/2020) Anatomical Region Laterality Modality Other 08/07/2020 Narrative 08/07/2020 Ordered by an unspecified provider. us Documents Scanned SCANNING Final Result * IMAGE GENERIC (08/07/2020) Anatomical Region Laterality Modality Other 08/07/2020 Narrative 08/07/2020 Ordered by an unspecified provider. us Documents Scanned SCANNING Final Result * CT GENERIC (08/07/2020) Anatomical Region Laterality Modality Other 08/07/2020 Narrative 08/07/2020 Ordered by an unspecified provider. us Documents Scanned SCANNING Final Result * CT GENERIC (08/07/2020) Anatomical Region Laterality Modality Other 08/07/2020 Narrative 08/07/2020 Ordered by an unspecified provider. us Documents Scanned SCANNING Final Result * IMAGE GENERIC (08/07/2020) Anatomical Region Laterality Modality Other 08/07/2020 Narrative 08/07/2020 Ordered by an unspecified provider. us Documents Scanned SCANNING Final Result * ECG GENERIC (08/07/2020) 08/07/2020 Narrative 08/07/2020 Ordered by an unspecified provider. us Documents Scanned SCANNING Final Result * ECG GENERIC (08/07/2020) 08/07/2020 Narrative 08/07/2020 Ordered by an unspecified provider. us Documents Scanned SCANNING Final Result * ECG GENERIC (08/07/2020) 08/07/2020 Narrative 08/07/2020 Ordered by an unspecified provider. us Documents Scanned SCANNING Final Result * ECG GENERIC (08/07/2020) 08/07/2020 Narrative 08/07/2020 Ordered by an unspecified provider. us Documents Scanned SCANNING Final Result documented in this encounter Visit Diagnoses Not on filedocumented in this encounter Care Teams Ocularist Relationship Specialty Start Date End Date Juan Pablo Dominguez MD PCP - General FAMILY MEDICINE SPORTS MEDICINE 11/15/19 08/22/20 Dianne Johnson, RN [address] [place], [place] [address] Development Planner (Ambulatory) REGISTERED NURSE 08/14/20 documented as of this encounter
--- OUTSIDE RECORDS SUMMARY | 2024-03-15 01:12 | XMS_ITS | Encounter Summary ---
Author Organization [facility] Address [address] [place] [address]. [place] [address] [place] [address] Care Team Providers Care Digital Performance Analyst Name Role Phone Juan Pablo Dominguez MD Primary Care Provider Unavailabl e Encounter Details Date Type Department Care Team (Late Contact Info) Description 02/06/2020 3:00 PM WINCHMAN/CRANE OPERATOR Office Visit [facility] Family & Internal Medicine [address] [address] Social History Tobacco Use Types Packs/Day Years [...] COVID-19? Unable to assess 02/06/2020 2:59 PM WINCHMAN/CRANE OPERATOR documented as of this encounter Plan of Treatment Upcoming Encounters Date Type Department Care Team (Late Contact Info) Description 04/14/2024 2:00 PM WINCHMAN/CRANE OPERATOR Office Visit [facility] Multispecialty Care - [address], [address] [place] [address] Julio Pulido MD [address] [place] [address] [place] [address] documented as of this encounter Procedures Procedure Name Priority Date/Time Associated Diagnosis Comments COLLECT.CAPILLARY (FNGR,HEEL,EAR) Routine 02/06/2020 3:03 PM WINCHMAN/CRANE OPERATOR Chronic anticoagulation PROTHROMBIN TIME, FINGERSTICK Routine 02/06/2020 Chronic anticoagulation documented in this encounter Results * PROTIME/INR, FINGERSTICK (02/06/2020) INR WHOLE BLOOD 1.90 MG[facility] 02/06/2020 us Juan Pablo Dominguez MD LABORATORY Final Result [facility] [address] [place] [address], documented in this encounter Visit Diagnoses Diagnosis Chronic anticoagulation- Primary Encounter for long-term (current) use of anticoagulants documented in this encounter Care Teams Digital Performance Analyst Relationship Specialty Start Date End Date Juan Pablo Dominguez MD PCP - General FAMILY MEDICINE SPORTS MEDICINE 11/15/19 08/22/20 documented as of this encounter
--- OUTSIDE RECORDS SUMMARY | 2024-03-15 01:12 | XMS_ITS | Encounter Summary ---
Author Organization [facility] Address [facility] [facility] [place] [address] [place] [address] Care Team Providers Care Naval Gunfire Liaison Officer Name Role Phone Heriberto Guan MD Primary Care Provider Unavailabl e Reason for Referral * Imaging (Routine) - Closed Specialty Diagnoses / Procedures Referred By Contac t Referred To Contact RADIOLOGY Diagnoses Fall (on)(from) incline, initial encounter Procedures XR RIBS RT+PA CHEST Heriberto Guan MD Referral ID Status Reason Start Date Expiration Date Visits Re quested Visits Authorized [id number] Closed 02/27/2020 03/29/2021 1 1 OR AGRICULTURAL ASSISTANT * Imaging (Routine) - Closed Specialty Diagnoses / Procedures Referred By Contac t Referred To Contact RADIOLOGY Diagnoses Fall (on)(from) incline, initial encounter Procedures XR THOR SPINE 3V Heriberto Guan MD Referral ID Status Reason Start Date Expiration Date Visits Re quested Visits Authorized [id number] Closed 02/27/2020 03/29/2021 1 1 OR AGRICULTURAL ASSISTANT * Imaging (Routine) - Closed Specialty Diagnoses / Procedures Referred By Contac t Referred To Contact RADIOLOGY Diagnoses Fall (on)(from) incline, initial encounter Procedures XR LUMB SPINE AP+LAT ONLY Heriberto Guan MD Referral ID Status Reason Start Date Expiration Date Visits Re quested Visits Authorized [id number] Closed 02/27/2020 03/29/2021 1 1 OR AGRICULTURAL ASSISTANT Reason for Visit * Reason Comments Fall Encounter Details Date Type Department Care Team (Late st Contact Info) Description 02/27/2020 1:00 PM SENIOR AGRICULTURAL ASSISTANT Office Visit [facility] Family Medicine - [place] [address] [facility] [address] [place] [address] Heriberto Guan MD Fall Social History Tobacco Use Types Packs/Day Years [...] COVID-19? No / Unsure 02/27/2020 1:00 PM SENIOR AGRICULTURAL ASSISTANT documented as of this encounter Progress Notes * Harshal Deal MA - 02/27/2020 1:00 PM CSTAddended by: HARSHAL DEAL on: 02/27/2020 04:04 PM Modules accepted: Orders OR AGRICULTURAL ASSISTANT * Heriberto Guan MD - 02/27/2020 1:00 PM CST Images from the original note were not included. Reason for Visit: No chief complaint on file. History of Present Illness: HPI She was at the grocery store 7 days ago was pushing a cart and slipped and fell on her right side she did not hit her head no loss of consciousness no loss of bowel or bladder patient was able to getup on her own she did not report to an urgent care or emergency room this was the first time that [facility] notified that this occurred. Location: right ribs and forearm Quality:painful on deep inspiration, sharp Severity:6-7/10 Duration:7 days Timing:constant Modifying factors:coughing is worse grasping and picking up objects is worse for her arm Associated symptoms:none Location:midto low back Quality:sharp pain Severity:4-5 Duration:7 days Timing:constant Modifying factors:bending or twisting makes worse Associated symptoms:none Medications: Current Outpatient Medications: ??? [...] and frequency. Musculoskeletal: Positive for back pain, falls, joint pain and myalgias. Right sided Sided rib pain Skin: Negative for itching and rash. Neurological: Negative for tingling and weakness. Endo/Heme/Allergies: Negative for polydipsia. Does not bruise/bleed easily. Physical Exam Constitutional: She is oriented to [...] normal. Skin: Skin is warm and dry. Abrasion and bruising noted. No rash noted. She is not diaphoretic. No erythema. No pallor. She has old abrasions and bruising on the right forearm Psychiatric: She has a normal mood and affect. Her behavior is normal. Judgment and thought contentnormal. Nursing note and vitals reviewed. Back Exam Tenderness The patient is experiencing tenderness in the lumbar and thoracic. Range of Motion Extension: 20 abnormal Flexion: 50 abnormal Lateral bend right: 20 abnormal Lateral bend left: 20 abnormal Rotation right: 20 abnormal Rotation left: 20 abnormal Tests Straight leg raise right: negative Straight leg raise left: negative Other Erythema: no back redness Scars: absent There were no vitals filed for this visit. Screening forms: PHQ-9: PHQ-9: Over the last two weeks, how often have you been bothered by any of the following problems? 12/12/2019 LITTLE INTEREST OR PLEASURE IN DOING THINGS 1-Several Days FEELING DOWN, DEPRESSSED,OR HOPELESS 1-Several Days PHQ2 DEPRESSION TOTAL SCORE 2 ARY-7 (Generalized Anxiety Disorder) Screening No flowsheet data found. Assessment/Recommendations/Plan 1. Fall (on)(from) incline, initial encounter - XR LUMB SPINE AP+LAT ONLY; Future - XR THOR SPINE 3V; Future - XR LUMB SPINE AP+LAT ONLY - XR THOR SPINE 3V - XR RIBS RT+PA CHEST; Future - XR RIBS RT+PA CHEST 2. Rib pain on right side Pain is along the eight, ninth and 10 ribs on the right. Patient has normal breath sounds. Patient has normal bowel sounds with no tenderness in the right upper quadrant area. Patient does have tenderness below the right breast along the costo chondral cartilage. I have ordered a right rib series to evaluate for possibility of broken ribs. 3. Thoracolumbar back pain Patient has tenderness along the mid thoracic and upper part of the lumbar region we have ordered athoracolumbar x-rays to help determine any compression fractures. 4. Chronic anticoagulation - PROTIME/INR, FINGERSTICK Attempted an INR in clinic but machine is currently not working. 5. Need for immunization against influenza - [20995] INFLUENZA VIRUS VACCINE, SPLIT VIRUS 0.7 mL (SINGLE DOSE SYRINGE FLUZONE HIGH DOSE) 1) We spent time obtaining information on potential contraindications to receiving a particular vaccines such as the influenza vaccination 2) Reviewing/discussing the relevant CDC Vaccine Information Statements 3) Reviewing/discussing risks and benefits of specific vaccines 4) Obtaining informed consent for each vaccine(s) administered 5) Addressing all other patient/parent concerns and questions related to vaccines and immunization administration Follow up: Thursday is abnormal findings otherwise 2 months Health Reminders Up to date she HERIBERTO GUAN MD 02/27/2020 2:45 PM OR AGRICULTURAL ASSISTANT documented in this encounter Plan of Treatment Upcoming Encounters Date Type Department Care Team (Late st Contact Info) Description 04/14/2024 2:00 PM SENIOR AGRICULTURAL ASSISTANT Office Visit [facility] Multispecialty Care - [facility] [address] [facility], [address] [place] [address] Julio Pulido MD 3 [place] [address] Scheduled Orders Name Type Priority Associated Diagnoses Orde r Schedule XR LUMB SPINE AP+LAT ONLY Imaging Routine Fall (on)(from) incline, initial encounter Expected: 02/27/2020, Expires: 02/26/2021 XR THOR SPINE 3V Imaging Routine Fall (on)(from) incline, initial encounter Expected: 02/27/2020, Expires: 02/26/2021 PROTIME/INR, FINGERSTICK Lab Today Chronic anticoagulation Ordered: 02/27/2020 documented as of this encounter Procedures Procedure Name Priority Date/Time Associated Diagnosis Comments XR RIBS RT+PA CHEST Routine 02/27/2020 12:[address] Fall (on)(from) incline, initial encounter documented in this encounter Results * XR RIBS RT+PA CHEST (02/27/2020 12:00 AM SENIOR AGRICULTURAL ASSISTANT) Anatomical Region Laterality Modality Chest Radiographic Jennifer ging 02/27/2020 Heriberto Guan MD GENERAL IMAGING Final Result documented in this encounter Visit Diagnoses Diagnosis Fall (on)(from) incline, initial encounter- Primary Rib pain on right side Chest pain, unspecified Thoracolumbar back pain Backache, unspecified Chronic anticoagulation Encounter for long-term (current) use of anticoagulants Need for immunization against influenza Need for prophylactic vaccination and inoculation against influenza Chronic bilateral low back pain without sciatica documented in this encounter Care Teams Naval Gunfire Liaison Officer Relationship Specialty Start Date End Date Heriberto Guan MD PCP - General FAMILY MEDICINE SPORTS MEDICINE 11/15/19 08/22/20 documented as of this encounter
--- OUTSIDE RECORDS SUMMARY | 2024-03-15 01:12 | XMS_ITS | Encounter Summary ---
Author Organization [facility] Address [facility] [place] [address] [place] [address] Care Team Providers Care Counseling Services Director Name Role Phone Heriberto Guan MD Primary Care Provider Unavailabl e Reason for Visit * Reason Onset Date Comments Refill Request 06/11/2020 Encounter Details Date Type Department Care Team (Late st Contact Info) Description 06/11/2020 Telephone [facility] Family Medicine [facility] [address] [place] [id number] Heriberto Guan MD Refill Request Social History [...] COVID-19? No / Unsure 05/18/2020 3:32 PM CANDLE POURER documented as of this encounter Progress Notes * Harshal Deal MA - 06/11/2020 1:00 PM CDT Last office visit at this office: Last visit with HERIBERTO GUAN in FAMILY PRACTICE was on: 05/18/2020 in [facility] Future appointment scheduled: Future Appointments Date Time Provider Department Center 07/04/2020 2:40 PM Adiel Leyva MD [facility] * Donna Norwood - 06/11/2020 10:41 AM CDT Refill request for hydrocodone and also asking for diclofenac gel (she had this at home, almost out). Her back is hurting. Cameron You documented in this encounter Plan of Treatment Upcoming Encounters Date Type Department Care Team (Late st Contact Info) Description 04/14/2024 2:00 PM CANDLE POURER Office Visit [facility] Medical Group Multispecialty Care - [address], [address] [place] [address] Julio Pulido MD [address] [place] [address] documented as of this encounter Visit Diagnoses Diagnosis Chronic bilateral low back pain without sciatica documented in this encounter Care Teams Counseling Services Director Relationship Specialty Start Date End Date Heriberto Guan MD PCP - General FAMILY MEDICINE SPORTS MEDICINE 11/15/19 08/22/20 documented as of this encounter
--- OUTSIDE RECORDS SUMMARY | 2024-03-15 01:12 | XMS_ITS | Encounter Summary ---
Author Organization [facility] Address [facility] [place] [address] [place] [address] Care Team Providers Care Induction Coordination Power Engineer Name Role Phone Juan Pablo Dominguez MD Primary Care Provider Unavailabl e Reason for Visit * Reason Onset Date Comments Lab Results 07/29/2020 Encounter Details Date Type Department Care Team (Late st Contact Info) Description 07/29/2020 Telephone [facility] Medical Group Family Medicine [facility] [address] [address] Juan Pablo Dominguez MD Lab Results Social History Tobacco Use [...] Deal MA - 07/30/2020 1:30 PM CDT Spoke with patient * Harshal Deal MA - 07/30/2020 1:30 PM CDTAddended by: HARSHAL DEAL on: 07/30/2020 01:30 PM Modules accepted: Orders documented in this encounter Plan of Treatment Upcoming Encounters Date Type Department Care Team (Late st Contact Info) Description 04/14/2024 2:00 PM PRETZEL TWISTING MACHINE OPERATOR Office Visit [facility] Medical Group Multispecialty Care - [address], [address] [place] [address] Julio Pulido MD 3 [place] [address] documented as of this encounter Visit Diagnoses Diagnosis Hyperparathyroidism ([facility])- Primary Hyperparathyroidism, unspecified documented in this encounter Care Teams Induction Coordination Power Engineer Relationship Specialty Start Date End Date Juan Pablo Dominguez MD PCP - General FAMILY MEDICINE SPORTS MEDICINE 11/15/19 08/22/20 documented as of this encounter
--- OUTSIDE RECORDS SUMMARY | 2024-03-15 01:12 | XMS_ITS | Encounter Summary ---
Author Organization [facility] Address [address] [place] [address]. [place] [address] [place] [address] Care Team Providers Care Call Center Coordinator Name Role Phone Juan Pablo Dominguez MD Primary Care Provider Unavailabl e Encounter Details Date Type Department Care Team (Latest Contact Info) Description 02/27/2020 Scan HEALTH INFO SRVCS Scanned, Documents Social [...] COVID-19? No / Unsure 02/27/2020 1:00 PM FILLING MACHINE TENDER documented as of this encounter Plan of Treatment Upcoming Encounters Date Type Department Care Team (Late st Contact Info) Description 04/14/2024 2:00 PM FILLING MACHINE TENDER Office Visit [facility] Medical Group Multispecialty Care - [address], [address] [place] [phone] Julio Pulido MD [address] [place] [address] documented as of this encounter Visit Diagnoses Not on filedocumented in this encounter Care Teams Call Center Coordinator Relationship Specialty Start Date End Date Juan Pablo Dominguez MD PCP - General FAMILY MEDICINE SPORTS MEDICINE 11/15/19 08/22/20 documented as of this encounter
--- OUTSIDE RECORDS SUMMARY | 2024-03-15 01:12 | XMS_ITS | Encounter Summary ---
Author Organization [facility] Address [address] [place] [address]. [place] [address] [place] [address] Care Team Providers Care Tester Operator Name Role Phone Juan Pablo Dominguez MD Primary Care Provider Unavailabl e Encounter Details Date Type Department Care Team (Latest Contact Info) Description 02/06/2020 Travel Social History Tobacco Use Types Packs/Day [...] COVID-19? Unable to assess 02/06/2020 2:59 PM AUDOGRAPH OPERATOR documented as of this encounter Plan of Treatment Upcoming Encounters Date Type Department Care Team (Late st Contact Info) Description 04/14/2024 2:00 PM AUDOGRAPH OPERATOR Office Visit [facility] Medical Group Multispecialty Care - [facility] 3 [facility], [address] [place] [phone] Julio Pulido MD 3 [place] [address] documented as of this encounter Visit Diagnoses Not on filedocumented in this encounter Care Teams Tester Operator Relationship Specialty Start Date End Date Juan Pablo Dominguez MD PCP - General FAMILY MEDICINE SPORTS MEDICINE 11/15/19 08/22/20 documented as of this encounter
--- OUTSIDE RECORDS SUMMARY | 2024-03-15 01:12 | XMS_ITS | Encounter Summary ---
Author Organization [facility] Address [facility]6 [facility] [place] [address] [place] [address] Care Team Providers Care Ac/Dc Rewinder Name Role Phone Juan Pablo Dominguez MD Primary Care Provider Unavailabl e Encounter Details Date Type Department Care Team (Late Contact Info) Description 08/07/2020 Orders Only [facility] Family Medicine - [address] [address] Juan Pablo Dominguez MD Social History Tobacco Use Types Packs/Day [...] (Late Contact Info) Description 04/14/2024 2:00 PM PRODUCT MANAGEMENT INTERNSHIP Office Visit [facility] Multispecialty Care - [address], [address] [place] [address] Julio Pulido MD 3 [place] [address] documented as of this encounter Procedures Procedure Name Priority Date/Time Associated Diagnosis Comments PROTHROMBIN TIME, VENOUS Routine 08/07/2020 11:14 AM CDT documented in this encounter Results * (ABNORMAL) PROTIME/INR, VENOUS (08/07/2020 11:14 AM CDT) INR 1.2(H) [facility] Comment: Reference Range ? 0.9-1.1 Moderate-intensity Warfarin Therapy 2.0-3.0 Higher-intensity Warfarin Therapy ?? 3.0-4.0 PROTIME 12.4(H) 9.0 - 11.5 sec [facility] Comment: For additional information, please refer to http://education.[employer]/faq/XJB676 (This link is being provided for informational/ educational purposes only.) 08/07/2020 11:1 4 AM CDT 08/07/2020 11:15 AM CDT Narrative [facility] - 08/07/2020 4:49 PM CDT FASTING:YES FASTING: YES us Juan Pablo Dominguez MD LABORATORY Final Result [facility] [address] [place] [address] documented in this encounter Visit Diagnoses Not on filedocumented in this encounter Care Teams Ac/Dc Rewinder Relationship Specialty Start Date End Date Juan Pablo Dominugez MD PCP - General FAMILY MEDICINE SPORTS MEDICINE 11/15/19 08/22/20 documented as of this encounter
--- OUTSIDE RECORDS SUMMARY | 2024-03-15 01:12 | XMS_ITS | Encounter Summary ---
Author Organization [facility] Address [address] [place] [address]. [place] [address] [place] [address] Care Team Providers Care Law Firm Consultant Name Role Phone Juan Pablo Dominguez MD Primary Care Provider Unavailabl e Encounter Details Date Type Department Care Team (Late Contact Info) Description 07/13/2020 Orders Only [facility] Interventional Radiology [address] [place], [place] [id number] Rangel Dominguez MD [address] [place] [address] Social History Tobacco Use Types Packs/Day Years [...] (Late Contact Info) Description 04/14/2024 2:00 PM CARRIER WASHER Office Visit [facility] Medical Group Multispecialty Care - [facility] 3 [facility], [address] [place] [address] Julio Pulido MD 3 [place] [address] documented as of this encounter Visit Diagnoses Diagnosis Preop testing- Primary Preoperative examination, unspecified documented in this encounter Care Teams Law Firm Consultant Relationship Specialty Start Date End Date Juan Pablo Dominguez MD PCP - General FAMILY MEDICINE SPORTS MEDICINE 11/15/19 08/22/20 documented as of this encounter
--- OUTSIDE RECORDS SUMMARY | 2024-03-15 01:13 | XMS_ITS | Encounter Summary ---
Author Organization [facility] Address [facility] [place] [address] [place] [address] Care Team Providers Care Library Supervisor Name Role Phone Juan Pablo Dominguez MD Primary Care Provider Unavailabl e Reason for Visit * Reason Onset Date Comments Other 01/24/2020 Encounter Details Date Type Department Care Team (Late st Contact Info) Description 01/24/2020 Telephone [facility] Medical Group Family Medicine [facility] [address] [address] Juan Pablo Dominguez MD Other Social History Tobacco Use Types Packs/Day [...] encounter Progress Notes * Donna Norwood - 01/24/2020 3:19 PM CST Radha was supposed to have a follow up appt with you on this coming . Her granddaughter Neema was going to come with her. Neema is concerned because Radha has not had her INR level checked since November at her previous pcp office. I scheduled her follow up for next Thursday the long as you are able to return by then. MECHANIC MECHANIC MECHANIC documented in this encounter Plan of Treatment Upcoming Encounters Date Type Department Care Team (Late st Contact Info) Description 04/14/2024 2:00 PM HEAD MECHANIC Office Visit [facility] Medical Group Multispecialty Care - [address], [address] [place] [address] Julio Pulido MD 3 [place] [address] documented as of this encounter Visit Diagnoses Diagnosis Chronic anticoagulation- Primary Encounter for long-term (current) use of anticoagulants documented in this encounter Care Teams Library Supervisor Relationship Specialty Start Date End Date Juan Pablo Dominguez MD PCP - General FAMILY MEDICINE SPORTS MEDICINE 11/15/19 08/22/20 documented as of this encounter
--- OUTSIDE RECORDS SUMMARY | 2024-03-15 01:13 | XMS_ITS | Encounter Summary ---
Author Organization [facility] Address [facility] [place] [address] [place] [address] Care Team Providers Care Activities Assistant Name Role Phone Juan Pablo Dominguez MD Primary Care Provider Unavailabl e Reason for Visit * Reason Onset Date Comments Lab Results 12/16/2019 Encounter Details Date Type Department Care Team (Late st Contact Info) Description 12/16/2019 Telephone [facility] Medical Group Family Medicine [facility] [address] [address] Juan Pablo Dominguez MD Lab Results Social [...] have Coronavirus / COVID-19? No / Unsure 11/21/2019 12:48 PM CDT documented as of this encounter Progress Notes * Harshal Deal MA - 12/16/2019 9:34 AM CDT I spoke with patient regarding lab results. Went over physician recommendations and answered all patient questions. * Harshal Deal MA - 12/16/2019 9:34 AM CDT ----- Message from Juan Pablo Dominguez MD sent at 12/15/2019 10:53 AM CDT ----- Her hemoglobin A1c is 6.3 we usually prefer it under 6 and may recommend beginning metformin again twice a day but that is a patient preference. The Number to aim for in a type II diabetic is less than 6.5 but the lower the number the healthierthe patient documented in this encounter Plan of Treatment Upcoming Encounters Date Type Department Care Team (Late st Contact Info) Description 04/14/2024 2:00 PM REAL ESTATE SPECIALIST Office Visit [facility] Medical Group Multispecialty Care - [address], [address] [place] [address] Julio Pulido MD [address] [place] [address] documented as of this encounter Visit Diagnoses Not on filedocumented in this encounter Care Teams Activities Assistant Relationship Specialty Start Date End Date Juan Pablo Dominguez MD PCP - General FAMILY MEDICINE SPORTS MEDICINE 11/15/19 08/22/20 documented as of this encounter
--- OUTSIDE RECORDS SUMMARY | 2024-03-15 01:13 | XMS_ITS | Encounter Summary ---
Author Organization [facility] Address [address] [place] [address]. [place] [address] [place] [address] Care Team Providers Care Home Appraiser Name Role Phone Juan Pablo Dominguez MD Primary Care Provider Unavailabl e Reason for Referral * Consultation/Treatment (Routine) - Closed Specialty Diagnoses / Procedures Referred By Contact Referred To Contact PAIN MANAGEMENT / [facility] Pain Management Diagnoses Chronic pain disorder Juan Pablo Dominguez MD [facility] Interventional [place] [address] Phone: [phone]: [phone] Referral ID Status Reason Start Date Expiration Date V isits Requested Visits Authorized [id number] Closed Specialty Services 12/09/2019 01/08/2021 1 1 * Audiology Exam (Routine) - Closed Specialty Diagnoses / Procedures Referred By Contac t Referred To Contact AUDIOLOGY Diagnoses Hearing abnormally acute, bilateral Juan Pablo Dominguez MD Referral ID Status Reason Start Date Expiration Date V isits Requested Visits Authorized [id number] Closed Specialty Services 12/09/2019 01/07/2021 1 1 Reason for Visit * Reason Onset Date Comments Question 12/09/2019 Encounter Details Date Type Department Care Team (Late st Contact Info) Description 12/09/2019 Telephone [facility] Medical Group Family Medicine [facility] [address] [phone] Juan Pablo Dominguez MD Question Social History Tobacco Use Types Packs/Day [...] Progress Notes * Harshal Deal MA - 12/12/2019 11:25 AM CDTAddended by: HARSHAL DEAL on: 12/12/2019 11:25 AM Modules accepted: Orders documented in this encounter Plan of Treatment Upcoming Encounters Date Type Department Care Team (Late st Contact Info) Description 04/14/2024 2:00 PM LABORATORY ASST Office Visit [facility] Medical Group Multispecialty Care - [facility] 3 [facility], [address] [place] [address] Julio Pulido MD 3 [place] [address] Scheduled Referrals Name Type Priority Associated Diagnoses Orde r Schedule Ambulatory referral to Audiology Referral Routine Hearing abnormally acute, bilateral Ordered: 12/12/2019 Ambulatory Referral to Pain Management Referral Routine Chronic pain disorder Ordered: 12/12/2019 documented as of this encounter Visit Diagnoses Diagnosis Hearing abnormally acute, bilateral- Primary Chronic pain disorder Chronic pain syndrome documented in this encounter Care Teams Home Appraiser Relationship Specialty Start Date End Date Juan Pablo Dominguez MD PCP - General FAMILY MEDICINE SPORTS MEDICINE 11/15/19 08/22/20 documented as of this encounter
--- OUTSIDE RECORDS SUMMARY | 2024-03-15 01:13 | XMS_ITS | Encounter Summary ---
Author Organization [facility] Address [facility]6 [facility] [place] [place] [address] [place] [address] Care Team Providers Care Pipe Fitter Soft Copper Name Role Phone Juan Pablo Dominguez MD Primary Care Provider Unavailabl e Reason for Visit * Reason Onset Date Comments Results 12/06/2019 Encounter Details Date Type Department Care Team (Late st Contact Info) Description 12/06/2019 Telephone [facility] Medical Group Family Medicine [facility] [address] [address] Juan Pablo Dominguez MD Results Social History Tobacco Use Types Packs/Day Years Used Date Smoking Tobacco: Never Smokeless Tobacco: Never Comments Unknown Sex and Gender Information Value [...] Progress Notes * Harshal Deal MA - 12/09/2019 1:13 PM CDT I spoke with patient, she is going to stop Vitamin D, get her labs drawn before her 12/18 appt. Meghana states she is having dizzy spells . She said she feels like she is walking sideways. And she is having very vivid dreams every night, where she will talk, scream, move her hands, arms & legsaround in her sleep. When she wakes up, she remembers all her dreams. I told her I would ask you if there is anything for her to do before her next visit. * Harshal Deal MA - 12/07/2019 11:33 AM CDTAddended by: HARSHAL DEAL on: 12/07/2019 11:33 AM Modules accepted: Orders documented in this encounter Plan of Treatment Upcoming Encounters Date Type Department Care Team (Late st Contact Info) Description 04/14/2024 2:00 PM AUTOMATIC EMBROIDERY MACHINE TENDER Office Visit [facility] Medical Group Multispecialty Care - [facility] 3 [facility], [address] [place] [address] Julio Pulido MD 3 [place] [address] Scheduled Orders Name Type Priority Associated Diagnoses Orde r Schedule VITAMIN D 1,25 DIHYDROXY Lab Routine Hypercalcemia Expected: 12/06/2019, Expires: 12/05/2020 documented as of this encounter Visit Diagnoses Diagnosis Hypercalcemia- Primary Macrocytic anemia Unspecified deficiency anemia documented in this encounter Care Teams Pipe Fitter Soft Copper Relationship Specialty Start Date End Date Juan Pablo Dominguez MD PCP - General FAMILY MEDICINE SPORTS MEDICINE 11/15/19 08/22/20 documented as of this encounter
--- OUTSIDE RECORDS SUMMARY | 2024-03-15 01:13 | XMS_ITS | Encounter Summary ---
Author Organization [facility] Address [facility] [place] [address] [place] [address] Care Team Providers Care Commission Broker Name Role Phone Juan Pablo Dominguez MD Primary Care Provider Unavailabl e Reason for Visit * Reason Onset Date Comments Other 11/29/2019 Encounter Details Date Type Department Care Team (Late st Contact Info) Description 11/29/2019 Telephone [facility] Medical Group Family Medicine [facility] [address] [address] Juan Pablo Dominguez MD Other Social History [...] of this encounter Progress Notes * Donna Tiny Norwood - 11/29/2019 4:16 PM CDT [facility] called in, patient went there for labs which couldn't be done because she wasn't fasting, and she also told them she was there for xrays of her back. I don't see where you ordered any xrays. After [facility] called here the patient also called asking about xrays. I told her I would ask you if you wanted any xrays. She also said she is still waiting on some referrals to opthalmology and audiology but she cannot travel to [place] or [place] because she doesn't have reliable transportation. She would like everything to be at [facility] if possible. Her # is [phone] documented in this encounter Plan of Treatment Upcoming Encounters Date Type Department Care Team (Late st Contact Info) Description 04/14/2024 2:00 PM LOAN REVIEW OFFICER Office Visit [facility] Medical Group Multispecialty Care - [facility] 3 [facility], [address] [place] [address] Julio Pulido MD 3 [place] [address] documented as of this encounter Visit Diagnoses Not on filedocumented in this encounter Care Teams Commission Broker Relationship Specialty Start Date End Date Juan Pablo Dominguez MD PCP - General FAMILY MEDICINE SPORTS MEDICINE 11/15/19 08/22/20 documented as of this encounter
--- OUTSIDE RECORDS SUMMARY | 2024-03-15 01:13 | XMS_ITS | Encounter Summary ---
Author Organization [facility] Address [facility]6 [facility] [place] [address] [place] [address] Care Team Providers Care Yield Analyst Name Role Phone Juan Pablo Dominguez MD Primary Care Provider Unavailabl e Encounter Details Date Type Department Care Team (Late Contact Info) Description 12/06/2019 Abstract [facility] Family Medicine - [place] [address] [address] Juan Pablo Dominguez MD Social History Tobacco [...] (Late Contact Info) Description 04/14/2024 2:00 PM HEATING WORKER Office Visit [facility] Multispecialty Care - [address], [address] [place] [address] Julio Pulido MD [address] [place] [address] documented as of this encounter Procedures Procedure Name Priority Date/Time Associated Diagnosis Comments HEMOGLOBIN, GLYCOSYLATED Routine 12/06/2019 documented in this encounter Results * HEMOGLOBIN, GLYCOSYLATED (12/06/2019) HGB A1C 6.3 % 12/06/2019 Juan Pablo Dominguez MD LABORATORY Final Result documented in this encounter Visit Diagnoses Not on filedocumented in this encounter Care Teams Yield Analyst Relationship Specialty Start Date End Date Juan Pablo Dominguez MD PCP - General FAMILY MEDICINE SPORTS MEDICINE 11/15/19 08/22/20 documented as of this encounter
--- OUTSIDE RECORDS SUMMARY | 2024-03-15 01:13 | XMS_ITS | Encounter Summary ---
Author Organization [facility] Address [address] [place] [address]. [place] [address] [place] [address] Care Team Providers Care Machine Stapler Name Role Phone Juan Pablo Dominguez MD Primary Care Provider Unavailabl e Reason for Visit * Reason Comments Lab (SCAN) Encounter Details Date Type Department Care Team (Latest Contact Info) Description 12/06/2019 Scan HEALTH INFO SRVCS Scanned, Documents Lab [...] (Late Contact Info) Description 04/14/2024 2:00 PM WEED COOKING OPERATOR Office Visit [facility] Medical Group Multispecialty Care - [address], [address] [place] [address] Julio Pulido MD 3 [place] [address] documented as of this encounter Procedures Procedure Name Priority Date/Time Associated Diagnosis Comments OUTSIDE LAB (SCAN ORDER) 12/06/2019 OUTSIDE LAB (SCAN ORDER) 12/06/2019 OUTSIDE LAB (SCAN ORDER) 12/06/2019 documented in this encounter Results * OUTSIDE LAB (SCAN) (12/06/2019) 12/06/2019 Narrative 12/06/2019 Ordered by an unspecified provider. us Documents Scanned SCANNING Final Result * OUTSIDE LAB (SCAN) (12/06/2019) 12/06/2019 Narrative 12/06/2019 Ordered by an unspecified provider. us Documents Scanned SCANNING Final Result * OUTSIDE LAB (SCAN) (12/06/2019) 12/06/2019 Narrative 12/06/2019 Ordered by an unspecified provider. us Documents Scanned SCANNING Final Result documented in this encounter Visit Diagnoses Not on filedocumented in this encounter Care Teams Machine Stapler Relationship Specialty Start Date End Date Juan Pablo Dominguez MD PCP - General FAMILY MEDICINE SPORTS MEDICINE 11/15/19 08/22/20 documented as of this encounter
--- OUTSIDE RECORDS SUMMARY | 2024-03-15 01:13 | XMS_ITS | Encounter Summary ---
Author Organization [facility] Address [address] [place] [address]. [place] [address] [place] [address] Care Team Providers Care Technical Training Specialist Name Role Phone Juan Pablo Dominguez MD Primary Care Provider Unavailabl e Encounter Details Date Type Department Care Team (Latest Contact Info) Description 12/19/2019 Travel Social History Tobacco Use Types Packs/Day [...] have Coronavirus / COVID-19? No / Unsure 12/19/2019 3:49 PM CDT documented as of this encounter Plan of Treatment Upcoming Encounters Date Type Department Care Team (Late st Contact Info) Description 04/14/2024 2:00 PM KNOCKOUT MACHINE OPERATOR Office Visit [facility] Medical Group Multispecialty Care - [facility] 3 [facility], [address] [place] [phone] Julio Pulido MD 3 [place] [address] documented as of this encounter Visit Diagnoses Not on filedocumented in this encounter Care Teams Technical Training Specialist Relationship Specialty Start Date End Date Juan Pablo Dominguez MD PCP - General FAMILY MEDICINE SPORTS MEDICINE 11/15/19 08/22/20 documented as of this encounter
--- OUTSIDE RECORDS SUMMARY | 2024-03-15 01:13 | XMS_ITS | Encounter Summary ---
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 Representative. Not using CPAP for a year. She later admits she is only taking maybe 4 of her medicines but she is not sure if she is taking Sotalol. New LBBB was noted, so patient returned on 12/13/18 for stress test which was negative for ischemia. 02/08/19 Patient presented to [facility] on 12/17/18 complaint of shortness of breath. She was found to be in AFib with RVR. New echo showed EF 50% , mild RV dysfunction , YADIRA 1.4 cm2 with meangradient 12 mmHg. She was put on metoprolol and loaded with amiodarone. She returned on 01/13/19 Jan/ but cardioversion was unsuccessful. She was kept on amiodarone for rate control. 05/06/19 Still not using CPAP, needs a new one. MRI for dizziness 04/06/19 chronic bilateral cerebellar infarctions Taking 40mg Lasix daily take extra dose for edema once every 2 weeks. 06/07/19 At her last visit, she was bradycardic (rate 46 bpm) so metoprolol was reduced to 25 mg b.i.d., furosemide was reduced to 20 mg daily. She came back to office for ECG on 05/11/19 and was in sinus rhythm, rate 56 bpm. 06/14/19 She looked at her pill bottles and clarified that the reduction in her metoprolol tartrate 25 mg tablet - currently she is taking 1/4 tablet (6.25 mg) bid. She has been monitoring blood pressure and pulse and has gotten the following readings over the past 5 days: BP 216/98, heart rate 55, BP 191/83, heart rate 60, BP 154/72, heart rate 50. She also clarified that she has not been taking lisinopril b/c Dr. Paredes stopped it in December. On further review of her medical record, I see thatlisinopril was stopped when she was hospitalized 12/2018 b/c metoprolol was started for better heart rate control and the lisinopril was stopped for concerns of hypotension. 06/30/19 She confirmed that she has been taking lisinopril 2.5 mg daily, metoprolol tartrate 6.25 mgb.i.d., furosemide 20 mg b.i.d.. However, she realize she had not been taking her warfarin, apparently forgot to put that pill in her weekly pillbox, and did not realize it till she got her INR checkat PCP yesterday and it was 1.0. They have restarted her warfarin at alternating daily doses of 7 mg and 6 mg. Today she states she takes 6mg daily except Thursday. Does not know her labs. Does not use CPAP anymore and feels fine. Only smoked for 1 month when she was 27 years old. All 3 husbands four children 1st dies of alcoholism All 4 children are sons. 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 Needs referral to opthamologist and audiology Medications: Current Outpatient Medications: ??? albuterol sulfate [...] MG tablet, Take 1 tablet by mouth daily., Disp: , Rfl: ??? fluticasone propionate 50 MCG/ACT nasal spray, 2 sprays by Each Nostril route daily., Disp: , Rfl: ??? furosemide 40 MG tablet, Take 40 mg by mouth daily., Disp: , Rfl: ??? gabapentin 300 MG capsule, Take 300 mg by mouth 2 (two) times daily., Disp: , Rfl: ??? HYDROcodone-acetaminophen 10-325 MG tablet, Take 1 tablet by mouth 3 (three) times daily as needed. FOR PAIN, Disp: , Rfl: ??? lisinopril 2.5 MG tablet, Take 2.5 mg by mouth daily., Disp: , Rfl: ??? metFORMIN 1000 MG tablet, TAKE 1 TABLET BY MOUTH TWICE DAILY WITH MORNING MEAL AND WITH EVENINGMEAL, Disp: , Rfl: ??? metoprolol tartrate 25 MG tablet, Take 12.5 mg by mouth 2 (two) times daily., Disp: , Rfl: ??? omeprazole 20 MG capsule, TAKE 1 CAPSULE BY MOUTH ONCE DAILY 30 MINUTES TO 1 HOUR BEFORE A MEAL, Disp: , Rfl: ??? rOPINIRole 0.25 MG tablet, Take 0.25 mg by mouth nightly at bedtime., Disp: , Rfl: ??? tiZANidine 2 MG tablet, TAKE 1 TABLET BY MOUTH EVERY 8 HOURS NEEDED DO NOT EXCEED 3 DOSES IN24 HOURS, Disp: , Rfl: ??? traZODone 50 MG tablet, Take 50 mg by mouth nightly at bedtime., Disp: , Rfl: ??? venlafaxine XR 150 [...] 6 MG DAILY, Disp: , Rfl: ??? warfarin 6 MG [...] Medical History: Diagnosis Date ??? Anxiety ??? Cataract ??? Diabetes mellitus (CMS/HCC) ??? Hypertension OB History No data available Past Surgical History: Procedure Laterality Date ??? REPAIR HEART WOUND Social History Tobacco Use ??? Smoking status: Never Smoker ??? Smokeless tobacco: Never Used Substance Use Topics ??? Alcohol use: Not on file ??? Drug use: Never No family history on file. ROS: Review of Systems Constitutional: Negative for chills, diaphoresis, fever, malaise/fatigue and weight loss. HENT: Positive for hearing loss. Negative for congestion, ear discharge, ear pain, nosebleeds, sinus pain, sore throat and tinnitus. Has been worsening over past year and a half Eyes: Negative for blurred vision, double vision, photophobia, pain, discharge and redness. Respiratory: Negative for cough, hemoptysis, sputum production, shortness of breath, wheezing and stridor. Cardiovascular: Positive for leg swelling. Negative for chest pain, palpitations, orthopnea, claudication and PND. Periodic but resolves with 1 or 2 lasix Gastrointestinal: Negative for abdominal pain, blood in stool, constipation, diarrhea, heartburn, melena, nausea and vomiting. Genitourinary: Negative for dysuria, flank pain, frequency, hematuria and urgency. Musculoskeletal: Positive for back pain. Negative for falls, joint pain, myalgias and neck pain. States currently well controlled with narcotics Skin: Negative for itching and rash. Neurological: Negative for dizziness, tingling, tremors, sensory change, speech change, seizures, weakness and headaches. Endo/Heme/Allergies: Negative for environmental allergies and polydipsia. Does not bruise/bleed easily. Psychiatric/Behavioral: Positive for memory loss. Negative for depression, hallucinations, substance abuse and suicidal ideas. The patient is not nervous/anxious and does not have insomnia. Believes she has some confusion remember names of things Physical Exam Constitutional: She is oriented to person, place, and time. Vital signs are normal. She appears well-developed and well-nourished. She is active. Non-toxic appearance. She does not have a sickly appearance. She does not appear ill. No distress. HENT: Head: Normocephalic and atraumatic. Right Ear: Hearing, tympanic membrane, external ear and ear canal normal. Left Ear: Hearing, tympanic membrane, external ear and ear canal normal. Nose: No mucosal edema, rhinorrhea, sinus tenderness, nasal deformity or septal deviation. Right sinus exhibits no maxillary sinus tenderness and no frontal sinus tenderness. Left sinus exhibits no maxillary sinus tenderness and no frontal sinus tenderness. Mouth/Throat: Uvula is midline, oropharynx is clear and moist and mucous membranes are normal. She does not have dentures. Normal dentition. No oropharyngeal exudate, posterior oropharyngeal edema orposterior oropharyngeal erythema. Eyes: Pupils are equal, round, and reactive to light. Conjunctivae and EOM are normal. Patient has 2 lenses from cataract surgery Neck: Trachea normal, normal range of motion, full passive range of motion without pain and phonation normal. Neck supple. Normal carotid pulses and no JVD present. Carotid bruit is not present. No Brudzinski's sign and no Kernig's sign noted. No thyroid mass and no thyromegaly present. Cardiovascular: Regular rhythm, S1 normal, S2 normal, intact distal pulses and normal pulses. No extrasystoles are present. Bradycardia present. PMI is not displaced. Exam reveals no S3, no S4, no distant heart sounds, no friction rub and no decreased pulses. No murmur heard. Pulses: Carotid pulses are 2+ on the right side, and 2+ on the left side. Radial pulses are 2+ on the right side, and 2+ on the left side. Popliteal pulses are 2+ on the right side, and 2+ on the left side. Dorsalis pedis pulses are 2+ on the right side, and 2+ on the left side. Posterior tibial pulses are 2+ on the right side, and 2+ on the left side. Patient has a prosthetic valve noticeable on cardiac exam Pulmonary/Chest: Effort normal. No accessory muscle usage. No respiratory distress. She has no decreased breath sounds. She has no wheezes. She has no rhonchi. She has no rales. Abdominal: Soft. Normal appearance, normal aorta and bowel sounds are normal. She exhibits no shifting dullness, no distension, no abdominal bruit, no ascites and no pulsatile midline mass. There is no hepatosplenomegaly. There is no tenderness. There is no rebound, no CVA tenderness, no tendernessat McBurney's point and negative Nguyen's sign. No hernia. Musculoskeletal: Right shoulder: Normal. Left shoulder: Normal. She exhibits normal range of motion and no deformity. Right elbow: Normal.She exhibits normal range of motion, no swelling and no effusion. Left elbow: Normal. She exhibits normal range of motion, no swelling and no effusion. Right wrist: Normal. She exhibits normal range of motion, no tenderness and no bony tenderness. Left wrist: Normal. She exhibits normal range of motion, no tenderness and no bony tenderness. Right knee: Normal. She exhibits normal range of motion, no swelling, no effusion and no deformity.No tenderness found. No medial joint line and no lateral joint line tenderness noted. Left knee: Normal. She exhibits normal range of motion, no swelling, no effusion and no deformity. No tenderness found. No medial joint line and no lateral joint line tenderness noted. Right ankle: Normal. She exhibits normal range of motion and no swelling. No tenderness. No lateralmalleolus and no medial malleolus tenderness found. Left ankle: Normal. She exhibits normal range of motion and no swelling. No lateral malleolus and no medial malleolus tenderness found. Cervical back: Normal. She exhibits normal range of motion, no tenderness and no bony tenderness. Lymphadenopathy: Head (right side): No submandibular and no posterior auricular adenopathy present. Head (left side): No submandibular and no posterior auricular adenopathy present. She has no cervical adenopathy. She has no axillary adenopathy. Right: No supraclavicular adenopathy present. Left: No supraclavicular adenopathy present. Neurological: She is alert and oriented to person, place, and time. She has normal strength and normal reflexes. She displays no tremor. No cranial nerve deficit or sensory deficit. She exhibits normal muscle tone. Coordination and gait normal. GCS eye subscore is 4. GCS verbal subscore is 5. GCS motor subscore is 6. Reflex Scores: Tricep reflexes are 2+ on the right side and 2+ on the left side. Bicep reflexes are 2+ on the right side and 2+ on the left side. Brachioradialis reflexes are 2+ on the right side and 2+ on the left side. Patellar reflexes are 2+ on the right side and 2+ on the left side. Achilles reflexes are 2+ on the right side and 2+ on the left side. Memory on recall was poor And could not remember several names of medications or specific dates on which the events occurred.Patient could also not remember any of her lab reports for her Coumadin results but does know half of the medications and dosages she is taking. Skin: Skin is warm, dry and intact. No bruising, no laceration, no petechiae and no rash noted. No cyanosis or erythema. Nails show no clubbing. Psychiatric: She has a normal mood and affect. Her speech is normal and behavior is normal. Judgment and thought content normal. Her mood appears not anxious. She is not agitated, not hyperactive andnot slowed. Thought content is not paranoid and not delusional. Cognition and memory are normal. Cognition and memory are not impaired. She does not express inappropriate judgment. She does not exhibit a depressed mood. Right Knee Exam Other Effusion: no effusion present Left Knee Exam Other Effusion: no effusion present Filed Vitals: 11/21/19 1300 BP: 120/66 Pulse: 54 Resp: 16 Temp: 97.2 ??F (36.2 ??C) TempSrc: Temporal SpO2: 97% Weight: 81.6 kg (180 lb) Height: 5' 4 (1.626 m) Assessment/Recommendations/Plan 1. Hypertensive heart disease with congestive heart failure, unspecified heart failure type (CMS/HCC) Continue to follow up with cardiology but for educational purpose I explained that hypertension is classified as Stage 1 - Systolic 130 to 139 mmHg or diastolic 80 to 89 mmHg Stage 2 - Systolic at least 140 mmHg or diastolic at least 90 mmHg I explained that instructed to use a validated, automated oscillometric device that measures blood pressure in the brachial artery (upper arm) and to perform measurements in a quiet room after five minutes of rest in the seated position with the back and arm supported and legs uncrossed. At least 12 to 14 measurements should be obtained, with both morning and evening measurements taken, over a period of one week. For newly diagnosed HtN and yearly follow ups I recommend Electrolytes (including calcium) and serum creatinine (to calculate the estimated glomerular filtration rate) Fasting glucose Urinalysis Complete blood count Thyroid-stimulating hormone Lipid profile Electrocardiogram Calculate 10-year atherosclerotic cardiovascular disease risk Dietary salt restriction. Aerobic exercise, and possibly resistance training, can decrease systolicand diastolic pressure by, on average, 4 to 6 mmHg and 3 mmHg, respectively, independent of weight loss. Most studies demonstrating a reduction in blood pressure have employed three to four sessions per week of moderate-intensity aerobic exercise lasting approximately 40 minutes for a period of 12 weeks. An MING inhibitor or ARB should be used for initial monotherapy in patients who have diabetic nephropathy or nondiabetic chronic kidney disease complicated by proteinuria.When more than one agent is needed to control the blood pressure, recommended therapy with a long-acting MING inhibitor or ARB in concert with a long-acting dihydropyridine calcium channel lexy. If Bp satys elevated despitedespite use of two antihypertensive medications, the therapy with MNIG inhibitor or ARB in conjunction with both a long-acting dihydropyridine calcium channel lexy and athiazide-like diuretic, chlorthalidone is preferred. If a long-acting dihydropyridine calcium channel lexy is not tolerated due to leg swelling, a non-dihydropyridine calcium channel lexy like verapamil or diltiazem may be used instead. If a thiazide- like diuretic is not tolerated or is contraindicated, a mineralocorticoid receptor antagonist such as spironolactone may be used. - CBC W/DIFF AUTOMATED - COMPREHENSIVE METABOLIC PANEL 2. Paroxysmal atrial flutter (CMS/HCC) Currently resolved 3. Dyslipidemia associated with type 2 diabetes mellitus (CMS/HCC) I explained that for our patients with diabetes: We check blood pressure and visually inspect the feet at every visit, and in addition, we perform nazanin thorough foot examination and refer patients for a dilated eye examination, usually annually. The frequency of eye examinations may vary based on the presence and severity of eye findings and other factors. We measure glycated hemoglobin (A1C) every three months if A1C is not in the goal range and therapyrequires adjustment. We measure A1C every six months in patients with stable glycemic control who are meeting A1C goals. We measure fasting lipids and urine [id number] ratio annually. All patients with diabetes mellitus who use insulin and some patients who take other glucose-lowering medications that can cause hypoglycemia should self- monitor their glucose concentrations to help maintain safe, target-driven glucose control. A reasonable goal of therapy might be an A1C value of <=7.0 percent. In order to achieve this A1C goal, a fasting glucose of 80 to 130 mg/dL and a postprandial glucose which is 90 to 120 minutes after a meal, less than 180 mg/dL are generally given as targets. The A1C goal is set somewhat higher, <8 percent , for older patients and those with comorbidities, a history of severe hypoglycemia or other significant adverse medication effects or polypharmacy,or a limited life expectancy and little likelihood of benefit from intensive therapy. Aspirin (75 to 162 mg/day) is recommended for secondary prevention in diabetic patients with a history of [place], vascular bypass, stroke or transient ischemic attack, peripheral vascular disease, claudication, or angina. The initiation of statins is based upon cardiovascular risk rather than an LDL cholesterol level. In patients with clinical ASCVD, statin therapy should be added to lifestyle intervention regardless of baseline lipid levels. I explained that 2018 [place] [employer]/[place] [employer] (and others) guideline on management of blood cholesterol, which states that other risk-enhancing factors may favor initiation of statin therapy. Some of these factors include a family history of premature CVD, chronic kidney disease, or chronic inflammatory disorder. For most patients who have been started on moderate-dose statin therapy, we do not intensify therapy. There is little evidence to suggest that intensification provides a level of (absolute) benefit that warrants more aggressive LDL-C lowering. However, it is acknowledge that some patients without established disease will be at very high risk for a c ardiovascular disease event. For example, in those with an initial 10-year risk of greater than 20 percent, intensification of statin therapy may be reasonable. In such patients, we consider high-intensity statin therapy if the LDL-C is greater than 100 mg. - HEMOGLOBIN, GLYCOSYLATED - LIPID PANEL - THYROID STIM HORMONE, TSH - MAGNESIUM; Future - URINALYSIS - MAGNESIUM 4. Chronic anticoagulation - PARTIAL THROMBOPLASTIN TIME,PTT - PROTHROMBIN TIME, VENOUS 5. Kidney dysfunction - MAGNESIUM; Future - MAGNESIUM 6. Hearing deficit, bilateral I explained to her that Hearing loss may be classified into three types: Sensorineural, involving the inner ear, cochlea, or the auditory nerve. Conductive, involving any cause that in some way limits the amount of external sound from gaining access to the inner ear. Examples include cerumen impaction, middle ear fluid, or ossicular chain fixation. This would cause lack of movement of the small bones of the ear. Had no cerumen impaction on today's examination no fluid accumulation within the middle ear Mixed loss, which is a combination of conductive and sensorineural hearing loss Patients without an obvious etiology for hearing loss, such as external otitis or cerumen impaction, should undergo formal audiologic testing. Formal audiologic assessment is performed by an trade economist in a soundproof environment. This evaluation provides very accurate and detailed information regarding a patient's hearing ability. The formal audiogram, with tympanogram and site of lesion testing, provides definitive information. - AMB REFERRAL TO AUDIOLOGY 7. Memory deficits . - AMB REFERRAL TO MEMORY CLINIC 8. History of cataract extraction, unspecified laterality - AMB REFERRAL TO OPHTHALMOLOGY 9. 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[employer] Office Visit [facility] - [address], [address] [place] [address] Julio Pulido MD [address] [place] [id number] Scheduled Orders Name Type Priority Associated Diagnoses Orde r Schedule CBC W/DIFF AUTOMATED Lab Routine Hypertensive heart disease with congestive heart failure, unspecified heart failure type ([facility]) Ordered: 11/21/2019 COMPREHENSIVE METABOLIC PANEL Lab Routine Hypertensive heart disease with congestive heart failure, unspecified heart failure type ([facility]) Ordered: 11/21/2019 HEMOGLOBIN, GLYCOSYLATED Lab Routine Dyslipidemia associated with type 2 diabetes mellitus ([facility]) Ordered: 11/21/2019 LIPID PANEL Lab Routine Dyslipidemia associated with type 2 diabetes mellitus ([facility]) Ordered: 11/21/2019 THYROID STIM HORMONE, TSH Lab Routine Dyslipidemia associated with type 2 diabetes mellitus ([facility]) Ordered: 11/21/2019 MAGNESIUM Lab Routine Dyslipidemia associated with type 2 diabetes mellitus ([facility]) Kidney dysfunction Expected: 11/21/2019, Expires: 11/20/2020 VITAMIN D 1,25 DIHYDROXY Lab Routine Vitamin D deficiency Ordered: 11/21/2019 PARTIAL THROMBOPLASTIN TIME,PTT Lab Routine Chronic anticoagulation Ordered: 11/21/2019 URINALYSIS Lab Routine Dyslipidemia associated with type 2 diabetes mellitus ([facility]) Ordered: 11/21/2019 PROTIME/INR, VENOUS Lab Routine Chronic anticoagulation Ordered: 11/21/2019 Scheduled Referrals Name Type Priority Associated Diagnoses Orde r Schedule Ambulatory referral to Audiology Referral Routine Hearing deficit, bilateral Ordered: 11/21/2019 Ambulatory Referral to Ophthalmology Referral Routine History Of Cataract Extraction, Unspecified Laterality Ordered: 11/21/2019 AMB REFERRAL TO MEMORY CLINIC Referral Routine Memory deficits Ordered: 11/21/2019 documented as of this encounter Visit Diagnoses Diagnosis Chronic anticoagulation- Primary Encounter for long-term (current) use of anticoagulants Hypertensive heart disease with congestive heart failure, unspecified heart failure type ([facility]) Paroxysmal atrial flutter ([facility]) Atrial flutter Dyslipidemia associated with type 2 diabetes mellitus ([facility]) Type II or unspecified type diabetes mellitus with other specified manifestations, not stated as uncontrolled Kidney dysfunction Unspecified disorder of kidney and ureter Hearing deficit, bilateral Memory deficits Memory loss History of cataract extraction, unspecified laterality Vitamin D deficiency Unspecified vitamin D deficiency documented in this encounter 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
--- OUTSIDE RECORDS SUMMARY | 2024-03-15 01:13 | XMS_ITS | Encounter Summary ---
Author Organization [facility] Address [address] [place] [address]. [place] [address] [place] [address] Care Team Providers Care Electrical Electronics Engineer Name Role Phone Juan Pablo Dominguez MD Primary Care Provider Unavailabl e Reason for Visit * Reason Onset Date Comments Concerns 01/13/2020 Encounter Details Date Type Department Care Team (Late st Contact Info) Description 01/13/2020 Telephone [facility] Family Medicine [facility] [address] [address] Juan Pablo Dominguez MD Concerns Social History [...] Progress Notes * Harshal Deal MA - 01/20/2020 10:14 AM CST Patient & granddaughter have appt to come in next week to speak with Dr. Dominguez SETTER VELVET * Juan Pablo Dominguez MD - 01/17/2020 12:13 PM CST ----- Message from Harshal Deal MA sent at 01/17/2020 11:29 AM RUG SETTER VELVET ----- ----- Message ----- From: Donna Norwood Sent: 01/13/2020 4:39 PM RUG SETTER [employer]ELVET To: Juan Pablo Mireles Nurse SETTER VELVET * Harshal Deal MA - 01/17/2020 11:29 AM CST FYI SETTER VELVET * Donna Norwood - 01/13/2020 4:27 PM CST Patient's granddaughter Neema called in with multiple concerns regarding Radha's health that she is wanting to talk to someone about. 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 She states that her last dr diagnosed her with dementia and she thinks that's why she quit going there. She would get very upset when the dr would mention it. Her main concern right now is making sure that she is getting her INR checked. She doesn't think it's been checked in awhile. Also wants to discuss kidney problem. I told her no one was in the office and that I would have someone return her call next week. Her # is [phone] Also, I had to call Radha to get Neema added to hipaa and when I called her she said she forgotto mention at her last visit that she sometimes has difficulty swallowing. SETTER VELVET documented in this encounter Plan of Treatment Upcoming Encounters Date Type Department Care Team (Late st Contact Info) Description 04/14/2024 2:00 PM RUG SETTER VELVET Office Visit [facility] Multispecialty Care - [facility] [address] [facility], [address] [place] [id number] Julio Pulido MD [address] [place] [address] documented as of this encounter Visit Diagnoses Not on filedocumented in this encounter Care Teams Electrical Electronics Engineer Relationship Specialty Start Date End Date Juan Pablo Dominguez MD PCP - General FAMILY MEDICINE SPORTS MEDICINE 11/15/19 08/22/20 documented as of this encounter
--- OUTSIDE RECORDS SUMMARY | 2024-03-15 01:13 | XMS_ITS | Encounter Summary ---
Author Organization [facility] - [facility] Address [address] [place] [address]. [place] [address] [place] [address] Care Team Providers Care Corporate Safety Director Name Role Phone Juan Pablo Dominguez MD Primary Care Provider Dianne Wells RN Unavailable [phone] Trina Hoffman NP Primary Care Provider [phone] Sanjeev Webster DO Primary Care Provider + Reason for Visit * Reason Comments Bone Density Report (SCAN) Encounter Details Date Type Department Care Team (Late Contact Info) Description 09/26/2011 Scan HEALTH INFO [facility] Scanned, Documents Bone Density Report (SCAN) Social History Tobacco Use Types Packs/Day Years Used Date Smoking Tobacco: Never Assessed PHQ-2 Answer Date Recorded PHQ-2 Score - If the patient scores above 3, please move on to questions 3-9 0 11/22/2020 Comments Unknown Sex and Gender Information Value Date Recorded Sex Assigned at Not on file Legal Sex Female 11:18 AM CDT Gender Identity Not on file Sexual Orientation Not on file COVID-19 Exposure Response Date Recorded In the last month, have you been in contact with someone who was confirmed or suspected to have Coronavirus / COVID-19? No / Unsure 03/28/2021 10:03 AM RAILROAD CAR TRUCK BUILDER documented as of this encounter Plan of Treatment Upcoming Encounters Date Type Department Care Team ([facility] Contact Info) Description 04/14/2024 2:00 PM RAILROAD [employer] BU[employer]DER Office Visit [facility] Multispecialty [address] [place] [address] Julio Pulido MD [address] [place] [address] documented as of this encounter Goals Goal Patient Goal Type Associated Problems Recent Progress Patient-Stated? Author Health - patient able to perform ADLs independently General On track(2023 9:49 AM CDT) Dianne Corona RN Note: 12/17/23: Patient stated she is independent with ASL's. Establish Plan for Symptom Monitoring-CHF General On track(2023 11:36 AM RAILROAD CAR TRUCK BUILDER) Dianne Corona RN Note: Patient will [...] Monitoring-COPD General On track(2023 11:36 AM RAILROAD CAR TRUCK BUILDER) Dianne Corona RN Note: Patient will [...] Monitoring-DM General On track(2023 4:33 PM RAILROAD CAR TRUCK BUILDER) No Johnson, Dianne R, RN Note: Patient [...] Monitoring-HTN General On track(2023 4:33 PM RAILROAD CAR TRUCK BUILDER) Dianne Corona RN Note: Patient will monitor [...] Diagnosis Comments BONE DENSITY GENERIC (SCAN ORDER) 09/26/2011 documented in this encounter Results * BONE DENSITY GENERIC (09/26/2011) Anatomical Region Laterality Modality Other 09/26/2011 Narrative 09/26/2011 Ordered by an unspecified provider. us Documents Scanned SCANNING Final Result documented in this encounter Visit Diagnoses Not on filedocumented in this encounter Care Teams Corporate Safety Director Relationship Specialty Start Date End Date Juan Pablo Dominguez MD PCP - General FAMILY MEDICINE SPORTS MEDICINE 11/15/19 08/22/20 Trina Hoffman NP [address] [place] [address] PCP - General NURSE PRACTITIONER 08/23/20 09/24/20 Sanjeev Webster DO [address] [place] [id number] PCP - General FAMILY PRACTICE 09/25/20 Dianne Johnson, RN [address] [place] [address] Business Programmer (Ambulatory) REGISTERED NURSE 08/14/20 documented as of this encounter
--- OUTSIDE RECORDS SUMMARY | 2024-03-15 01:13 | XMS_ITS | Encounter Summary ---
Author Organization [facility] Address Formerly [facility] [facility] [place] [address] [place] [address] Care Team Providers Care Auto Inspector Name Role Phone Heriberto Guan MD Primary Care Provider Unavailabl e Reason for Visit * Reason Comments Follow Up 1 month f/u, she sta christiano she thinks she may have sinus infection or start of cold! Encounter Details Date Type Department Care Team (Late st Contact Info) Description 12/19/2019 4:00 PM CDT Office Visit [facility] Family [facility] - [place] [address] [place] [address] Heriberto Guan MD Follow Up (1 month f/u, she states she thinks she may have sinus infection or start of cold!) Social History Tobacco Use Types Packs/Day Years [...] Sign Reading Time Taken Comments Blood Pressure 160/74 12/19/2019 3:53 PM CDT Pulse 51 12/19/2019 3:53 PM CDT Temperature 36.5 ??C (97.7 ??F) 12/19/2019 3:53 PM CD T Respiratory Rate 16 12/19/2019 3:53 PM CDT Oxygen Saturation 98% 12/19/2019 3:53 PM CDT Inhaled Oxygen Concentration - - Weight 85.7 kg (189 lb) 12/19/2019 3:53 PM CDT Height 162.6 cm (5' 4 ) 12/19/2019 3:53 PM CDT Body Mass Index 32.44 12/19/2019 3:53 PM CDT documented in this encounter Patient Instructions * Patient Instructions* Heriberto Guan MD - 12/19/2019 4:00 PM CDT Images from the original note were not included. Patient Education Patient Education Chronic Sinusitis The Basics Written by the doctors and editors at [facility] What is chronic sinusitis???--??Chronic sinusitis is a long-lasting form of sinusitis. Sinusitis delmis condition that causes a stuffy nose, pain in the face, and discharge (mucus) from the nose. Chronic sinusitis can also make you feel tired and run down all the time. The sinuses are hollow areas in the bones of the face (figure 1). They have a thin lining that normally makes a small amount of mucus. When this lining gets inflamed, it swells and makes extra mucus. The most common type of sinusitis often happens after you catch a cold. It is also called acute sinusitis and usually gets better in 1 to 3 weeks. Chronic sinusitis lasts for at least 3 months. People with this condition often have very swollen sinuses. One or more sinuses might get filled with infected mucus. Some people get abnormal growths inside their noses or sinuses, called polyps (figure 2). People with nasal polyps often have a poor sense of smell. What are the symptoms of chronic sinusitis???--??The symptoms include having at least 2 of the following symptoms for at least 3 months: ?? A stuffy nose ?? Yellow, green, or brown mucus that drains from the nose or down the back of the throat ?? Pain, pressure, or a feeling of fullness in the face ?? Not being able to smell things as well as usual Should I see a doctor or nurse???--??If you have at least 2 of the above symptoms for more than 3 months, see your doctor or nurse. He or she can help figure out if you have chronic sinusitis. Call your doctor or nurse right away if you have: ?? Fever higher than 102.5??F (39.2??C) ?? Sudden and severe pain in the face and head ?? Trouble seeing or seeing double ?? Swelling or redness around 1 or both eyes ?? A very bad headache or stiff neck Are some people more likely to get chronic sinusitis than others???--??Yes. You might be more likely to get chronic sinusitis if you: ?? Have allergies - Allergies to molds, cockroaches, dust mites (tiny insects found in dust), and animal dander (tiny flakes from animal fur, hair, or skin) are most likely to cause sinus problems. (Things that cause allergies, such as pollen and mold, are called allergens. ) ?? Have problems with your body's infection-fighting system (called the immune system ) ?? Get frequent colds ?? Have an injury or deformity of the nose that makes it hard to drain mucus normally ?? Smoke cigarettes or are around others who smoke Are there tests for chronic sinusitis???--??Yes, but they are not always needed. Tests include: ?? CT scan or other imaging tests - Imaging tests create pictures of the inside of the sinuses. These tests are not usually done in children unless they do not get better with treatment. ?? A test to look inside the sinuses - For this test, a doctor puts a thin tube with a camera on the end into the nose and up into the sinuses. Is there anything I can do on my own to feel better???--??Yes. If you smoke, quit. If you have allergies, talk to your doctor about how to better control your allergy symptoms. You can also rinse out your nose with salt water. This cleans the inside of your nose and washes allergens and mucus from the nose. Different devices can be used to rinse the nose. How is chronic sinusitis treated???--??Your doctor might recommend different treatments, including: ?? Steroids - These medicines help to reduce swelling and mucus, and shrink polyps, if you have them. (These are not the same as the steroids some athletes take illegally.) They can be taken as sprays or drops that you put in your nose. You can also add steroid medicines to the salt water you use for rinsing out your nose. Your doctor also might prescribe steroid pills. ?? Antibiotics - These are used to treat sinus infections, which sometimes happen when you have chronic sinusitis. ?? Surgery - Some people with chronic sinusitis need surgery to reopen blocked nasal passages and remove polyps or mucus trapped in the nose. But this is usually done only in people who do not get better after trying medicines. All topics are updated as new evidence becomes available and our peer review process is complete. This topic retrieved from [employer] on: Sep 01, 2019. Topic 11363 Version 7.0 Release: 28.3.2 - C28.250 ?2019??[employer] and/or its affiliates.??All rights reserved. figure 1: Sinuses of the face This??drawing shows the sinuses of the face. Graphic 53836 Version 7.0 figure 2: Chronic sinusitis with polyps This drawing shows a person who has chronic rhinosinusitis with polyps (abnormal growths inside thenose or sinuses). Scientists do not know why polyps develop. Graphic 50703 Version 5.0 Consumer Information Use and Disclaimer This information [...] that is right for you.The use of [employer] content is governed by the [employer] Terms of Use. ??2020 [employer]. All rights reserved. Copyright ?2020??[employer] and/or its affiliates.??All rights reserved. Patient Education Patient Education Hypercalcemia Discharge Instructions About this topic A high level of calcium in the blood is hypercalcemia. Calcium is an important mineral that is in almost every part of your body. It makes your teeth and bones strong and healthy. It also helps your body: ?? Make blood clots ?? Keep your heartbeat normal ?? Release hormones ?? Send and get signals between your nerves and brain ?? Make muscles work well Certain health problems can keep the calcium from being absorbed out of the blood. This can make your blood have a higher level of calcium. These are problems like: ?? Trouble with your thyroid, parathyroid, or adrenal glands ?? Certain drugs or diet aids ?? Kidney failure or cancer ?? Infections or inflammatory diseases ?? Being confined to bed for a long time People who have high blood calcium may have some signs or they may have none at all. You may notice: ?? Muscle weakness and twitching ?? Being very tired ?? Not able to have bowel movements ?? Low mood ?? Upset stomach and throwing up Your doctor will work to treat any hidden cause. You may need to have fluids, be given special drugs, or dialysis to help get rid of the calcium in your blood. You may be in the hospital until your levels are back to normal. What care is needed at home? ?? Keep track of your fluid intake. Drink 8 to 10 glasses of fluids each day. ?? Avoid antacids that have high calcium content. ?? Your doctor may give you drugs to control the calcium in your body. Take them as ordered. ?? Your doctor will talk to you about other care needed for the cause of your hypercalcemia. Followyour doctor's orders with care. What follow-up care is needed? Your doctor may ask you to make visits to the office to check on your progress. Be sure to keep these visits. You may need another test to check the calcium level in your blood. What drugs may be needed? The doctor may order drugs to: ?? Slow bone loss ?? Replace lost fluids ?? Prevent the effects of too much vitamin D in your blood Will physical activity be limited? Your activities will not be limited. What changes to diet are needed? Talk to your doctor or dietitian about your personal diet plan. Ask if you need to limit certain foods like milk and milk products. What problems could happen? ?? Osteoporosis ?? Bone fractures or cysts ?? Kidney stones or kidney failure ?? High blood pressure ?? Stomach ulcers ?? Pancreatitis ?? Too much fluid loss ?? Low mood ?? Forgetfulness ?? Low level of consciousness ?? Coma When do I need to call the doctor? ?? Being very tired ?? Loss of appetite ?? Problem when passing urine or blood in urine ?? Throwing up or loose stools ?? Too much thirst ?? Irregular heartbeat ?? Chest pain ?? Lightheadedness ?? Low mood ?? Confusion Teach Back: Helping You Understand The Teach Back Method helps you understand the information we are giving you. After you talk with the staff, tell them in your own words what you learned. This helps to make sure the staff has described each thing clearly. It also helps to explain things that may have been confusing. Before going home, make sure you can do these: ?? I can tell you about my condition. ?? I can tell you what changes I need to make with my diet or drugs. ?? I can tell you what I will do if I am very tired or have chest pain or an irregular heartbeat. Last Reviewed Date 2018-12-27 Consumer Information Use and Disclaimer This information [...] right for you. Copyright Copyright ?? 2020 [employer]. and its affiliates and/or licensors. All rights reserved. documented in this encounter Progress Notes * Heriberto Guan MD - 12/19/2019 4:00 PM CDT Reason for Visit: Follow Up (1 month f/u, she states she thinks she may have sinus infection or start of cold!) History of Present Illness: HPI Location:frontal sinuses Quality:congested fullness Severity:06/16 Duration:3 months Timing:previously waxed and waned now daily x 4 weeks Modifying factors:minimal improvement with flonase now no improvement Associated symptoms: States she has no allergies to oral medications such as penicillin or Augmentin patient just has allergies which are rash with hydrocortisone or neomycin Location:abdomen Quality:difficulties pooping daily Severity:mild Duration: years but last couple of months Timing:sometimes will go everyday then goes one or two days and then daily again but but smaller and harder Modifying factors:she does not drink much water but when she does has better bowel movements. Associated symptoms:none No PTH or 24 hour urine completed as previously ordered. Medications: Current Outpatient Medications: ??? albuterol sulfate [...] MG tablet, Take 1 tablet by mouth 2 (two) times daily as needed. Indications: Chronic Pain FOR PAIN, Disp: 60 tablet, Rfl: 0 ??? lisinopril 2.5 MG [...] nightly at bedtime., Disp: , Rfl: ??? Umeclidinium-Vilanterol (ANORO ELLIPTA IN), , Disp: , Rfl: ??? venlafaxine XR 150 [...] Thursday AND THURSDAY., Disp: , Rfl: ??? Cholecalciferol (VITAMIN D3) 25 MCG (1000 UT) Cap, Take 1,000 Units by mouth daily., Disp: , Rfl: ??? vitamin B-12 (CYANOCOBALAMIN) 1000 mcg tablet, Take 1,000 mcg by mouth daily., Disp: , Rfl: Allergies Allergen Reactions ??? [...] malaise/fatigue and weight loss. HENT: Positive for congestion and sinus pain. Negative for ear discharge, ear pain, hearing loss, nosebleeds, sore throat and tinnitus. Eyes: Negative for blurred vision, double vision, photophobia, pain, discharge and redness. Respiratory: Positive for sputum production. Negative for cough, hemoptysis, shortness of breath, wheezing and stridor. Feels as if drains from sinuses into throat Cardiovascular: Negative for chest pain, palpitations, orthopnea and leg swelling. Gastrointestinal: Positive for constipation. Negative for abdominal pain, nausea and vomiting. Genitourinary: Negative for dysuria, frequency and urgency. Skin: Negative for itching and rash. Physical Exam Constitutional: She appears well-developed and well-nourished. No distress. HENT: Head: Normocephalic and atraumatic. Right Ear: Hearing, tympanic membrane, external ear and ear canal normal. Left Ear: Hearing, tympanic membrane, external ear and ear canal normal. Nose: Mucosal edema and rhinorrhea present. No nose lacerations, sinus tenderness, nasal deformity,septal deviation or nasal septal hematoma. No epistaxis. No foreign bodies. Right sinus exhibits frontal sinus tenderness. Right sinus exhibits no maxillary sinus tenderness. Left sinus exhibits no ma xillary sinus tenderness and no frontal sinus tenderness. Mouth/Throat: Uvula is midline and mucous membranes are normal. She does not have dentures. No orallesions. No trismus in the jaw. Normal dentition. No dental abscesses, uvula swelling, lacerations or dental caries. No oropharyngeal exudate, posterior oropharyngeal edema, posterior oropharyngeal erythema or tonsillar abscesses. Postnasal drip Also has some very minimal purulence in right nostril Eyes: Pupils are equal, round, and reactive to light. Conjunctivae and EOM are normal. Right eye exhibits no discharge. Left eye exhibits no discharge. No scleral icterus. Neck: Trachea normal and normal range of motion. Neck supple. Carotid bruit is not present. No tracheal deviation present. No Brudzinski's sign and no Kernig's sign noted. No thyroid mass and no thyromegaly present. Cardiovascular: Normal rate, regular rhythm, S1 normal, S2 normal, intact distal pulses and normal pulses. PMI is not displaced. Exam reveals no gallop, no S3, no S4, no distant heart sounds and no friction rub. Pulmonary/Chest: Effort normal and breath sounds normal. No accessory muscle usage or stridor. No tachypnea. No respiratory distress. She has no decreased breath sounds. She has no wheezes. She has no rhonchi. She has no rales. She exhibits no tenderness. Abdominal: Soft. Bowel sounds are normal. She exhibits no distension and no mass. There is no abdominal tenderness. There is no rebound and no guarding. Skin: She is not diaphoretic. Nursing note and vitals reviewed. Ortho Exam Filed Vitals: 12/19/19 1553 BP: (!) 160/74 Pulse: 51 Resp: 16 Temp: 97.7 ??F (36.5 ??C) TempSrc: Temporal SpO2: 98% Weight: 85.7 kg (189 lb) Height: 5' 4 (1.626 m) Assessment/Recommendations/Plan 1. Chronic frontal sinusitis I explained to the patient that sinusitis is divided into 4 categories Acute rhinosinusitis - Symptoms for less than 4 weeks Subacute rhinosinusitis - Symptoms for 4 to 12 weeks Chronic rhinosinusitis - Symptoms persist greater than 12 weeks Recurrent acute rhinosinusitis - Four or more episodes of ARS per year, with interim symptom resolution Regarding acute viral sinusitis has a similar clinical course to other viral upper respiratory infections with patients having partial or complete resolution of symptoms within 7 to 10 days. Althoughsymptoms may persist for more than 10 days, there is typically some improvement by day 10. In most cases of viral URI, symptoms peak in severity between day 3 and 6, after which symptoms improve.Patients typically do not have fever. If fever is present, it is generally present early in the illness and disappears within the first 24 to 48 hours, with respiratory symptoms becoming more prominent after the fever has resolved . Symptoms of acute invasive fungal rhinosinusitis are similar to acute rhinosinusitis (ARS), but acute invasive fungal rhinosinusitis is often rapidly progressive and many patients have extension of the infection outside the sinuses at presentation. The majority of patients with acute invasive fungal rhinosinusitis are immunosuppressed or have poorly controlled diabetes. - cefUROXime 250 MG tablet; Take 1 tablet (250 mg total) by mouth 2 (two) times daily for 10 days. Dispense: 20 tablet; Refill: 0 - azelastine (AZELASTINE) 0.1 % nasal spray; 1 spray by Nasal route 2 (two) times daily. Use in each nostril as directed Dispense: 30 mL; Refill: 1 2. Constipation, unspecified constipation type I explained that according to the Cristobal IV criteria, functional constipation is defined as [...] in patients not responding satisfactorily to bulking agents.I did explain the side effect of flatus in which case we can switch to polyethylene glycol. - lactulose 10 GM/15ML solution; Take 15 mLs (10 g total) by mouth 2 (two) times daily for 10 days.May start with one time daily for 2 days then increase to two times daily if not the desired effectDispense: 300 mL; Refill: 0 3. Hypercalcemia - PTH - INTACT; Future - CALCIUM URINE 24 HR; Future 4. Chronic anticoagulation - PROTHROMBIN TIME, VENOUS; Future Follow up: 10 days if not better Health Reminders HERIBERTO GUAN MD 12/19/2019 4:13 PM documented in this encounter Plan of Treatment Upcoming Encounters Date Type Department Care Team (Late st Contact Info) Description 04/14/2024 2:00 PM SENIOR SOFTWARE QUALITY ANALYST Office Visit [facility] Multispecialty Care - [facility] [address], [address] [place] [address] Julio Pulido MD 3 [place] [address] documented as of this encounter Visit Diagnoses Diagnosis Hypercalcemia- Primary Chronic frontal sinusitis Constipation, unspecified constipation type Chronic anticoagulation Encounter for long-term (current) use of anticoagulants documented in this encounter Care Teams Auto Inspector Relationship Specialty Start Date End Date Heriberto Guan MD PCP - General FAMILY MEDICINE SPORTS MEDICINE 11/15/19 08/22/20 documented as of this encounter
--- OUTSIDE RECORDS SUMMARY | 2024-03-15 01:13 | XMS_ITS | Encounter Summary ---
Author Organization [facility] Address [address] [place] [address]. [place] [address] [place] [address] Care Team Providers Care Manager Analysis Name Role Phone Juan Pablo Dominguez MD Primary Care Provider Unavailabl e Encounter Details Date Type Department Care Team (Latest Contact Info) Description 12/26/2019 Scan HEALTH INFO SRVCS Scanned, Documents Social [...] COVID-19? Unable to assess 02/06/2020 2:59 PM RAILROAD COOK documented as of this encounter Plan of Treatment Upcoming Encounters Date Type Department Care Team (Late st Contact Info) Description 04/14/2024 2:00 PM RAILROAD COOK Office Visit [facility] Multispecialty Care - [address], [address] [place] [phone] Julio Pulido MD [address] [place] [address] documented as of this encounter Visit Diagnoses Not on filedocumented in this encounter Care Teams Manager Analysis Relationship Specialty Start Date End Date Juan Pablo Dominguez MD PCP - General FAMILY MEDICINE SPORTS MEDICINE 11/15/19 08/22/20 documented as of this encounter
--- OUTSIDE RECORDS SUMMARY | 2024-03-15 01:13 | XMS_ITS | Encounter Summary ---
Author Organization [facility] Address [address] [place] [address]. [place] [address] [place] [address] Care Team Providers Care Health Information Clerk Name Role Phone Juan Pablo Dominguez MD Primary Care Provider Unavailabl e Encounter Details Date Type Department Care Team (Latest Contact Info) Description 11/21/2019 Travel Social History Tobacco Use Types Packs/Day [...] st Contact Info) Description 04/14/2024 2:00 PM ENGINEER BYPRODUCT Office Visit [facility] Multispecialty Care - [address], [address] [place] [phone] Julio Pulido MD 3 [place] [address] documented as of this encounter Visit Diagnoses Not on filedocumented in this encounter Care Teams Health Information Clerk Relationship Specialty Start Date End Date Juan Pablo Dominguez MD PCP - General FAMILY MEDICINE SPORTS MEDICINE 11/15/19 08/22/20 documented as of this encounter
--- OUTSIDE RECORDS SUMMARY | 2024-03-15 01:13 | XMS_ITS | Encounter Summary ---
Author Organization [facility] Address [facility] [facility] [place] [address] [place] [address] Care Team Providers Care Peoplesoft Business Analyst Name Role Phone Heriberto Guan MD Primary Care Provider Unavailabl e Reason for Visit * Reason Onset Date Comments Refill Request 01/31/2020 Encounter Details Date Type Department Care Team (Late st Contact Info) Description 01/31/2020 Telephone [facility] Family Medicine [facility] [address] [address] Heriberto Guan MD Refill Request Social History [...] COVID-19? No / Unsure 02/03/2020 12:55 PM PYROMETER MECHANIC documented as of this encounter Progress Notes * Heriberto Guan MD - 02/03/2020 3:13 PM CST aLREADY CALLED IN FOR PATIENT METER MECHANIC * Harshal Deal MA - 01/31/2020 4:20 PM CST Last office visit at this office: Last visit with HERIBERTO GUAN in FAMILY PRACTICE was on: 12/19/2019 in [facility] Future appointment scheduled: Future Appointments Date Time Provider Department Center 02/03/2020 1:00 PM Heriberto Guan MD [id number] Patient is requesting a refill on her pain meds. She states she is currently borrowing some from a friend. METER MECHANIC documented in this encounter Plan of Treatment Upcoming Encounters Date Type Department Care Team (Late st Contact Info) Description 04/14/2024 2:00 PM PYROMETER MECHANIC Office Visit [facility] Mult[facility]pecialty Care - [facility] [address], [address] [place] [phone] Julio Pulido MD 3 [place] [address] documented as of this encounter Visit Diagnoses Diagnosis Chronic pain disorder Chronic pain syndrome documented in this encounter Care Teams Peoplesoft Business Analyst Relationship Specialty Start Date End Date Heriberto Guan MD PCP - General FAMILY MEDICINE SPORTS MEDICINE 11/15/19 08/22/20 documented as of this encounter
--- OUTSIDE RECORDS SUMMARY | 2024-03-15 01:13 | XMS_ITS | Encounter Summary ---
Author Organization [facility] Address [facility] [facility] [place] [address] [place] [address] Care Team Providers Care Stamp Mounter Name Role Phone Juan Pablo Dominguez MD Primary Care Provider Unavailabl e Reason for Visit * Reason Onset Date Comments Pre-visit Gap Closure 12/12/2019 Encounter Details Date Type Department Care Team (Late st Contact Info) Description 12/12/2019 Telephone [facility] Family Medicine - [place] [address] [address] Juan Pablo Dominguez MD Pre-visit Gap Closure Social History Tobacco Use [...] as of this encounter Progress Notes * Neeta Martinez MA - 12/12/2019 3:22 PM CDT Contacted patient for pre-visit gap closure. I am calling this patient as a patient advocate for the [employer]. My direct extension is [phone]. You can also reach me at: [phone] (MICHELLE) OR [phone] (NICOLE) documented in this encounter Plan of Treatment Upcoming Encounters Date Type Department Care Team (Late st Contact Info) Description 04/14/2024 2:00 PM MARINE FARMER Office Visit [facility] Medical [facility] Multispecialty Care - [facility] [address] [facility], [address] [place] [phone] Julio Pulido MD 3 [place] [address] documented as of this encounter Visit Diagnoses Not on filedocumented in this encounter Care Teams Stamp Mounter Relationship Specialty Start Date End Date Juan Pablo Dominguez MD PCP - General FAMILY MEDICINE SPORTS MEDICINE 11/15/19 08/22/20 documented as of this encounter
--- OUTSIDE RECORDS SUMMARY | 2024-03-15 01:13 | XMS_ITS | Encounter Summary ---
Author Organization [facility] Address [address] [place] [address]. [place] [address] [place] [address] Care Team Providers Care Clinical Laboratory Aide Name Role Phone Juan Pablo Dominguez MD Primary Care Provider Unavailabl e Reason for Visit * Reason Comments Image (SCAN) Encounter Details Date Type Department Care Team (Latest Contact Info) Description 01/12/2020 Scan HEALTH INFO SRVCS Scanned, Documents Image [...] COVID-19? Unable to assess 02/06/2020 2:59 PM BANQUET SERVER ON CALL documented as of this encounter Plan of Treatment Upcoming Encounters Date Type Department Care Team (Late st Contact Info) Description 04/14/2024 2:00 PM BANQUET SERVER ON CALL Office Visit [facility] Multispecialty Care - [address], [address] [place] [address] Julio Pulido MD [address] [place] [id number] documented as of this encounter Procedures Procedure Name Priority Date/Time Associated Diagnosis Comments IMAGE GENERIC 01/12/2020 IMAGE GENERIC 01/12/2020 documented in this encounter Results * IMAGE GENERIC (01/12/2020) Anatomical Region Laterality Modality Other 01/12/2020 Narrative 01/12/2020 Ordered by an unspecified provider. us Documents Scanned SCANNING Final Result * IMAGE GENERIC (01/12/2020) Anatomical Region Laterality Modality Other 01/12/2020 Narrative 01/12/2020 Ordered by an unspecified provider. us Documents Scanned SCANNING Final Result documented in this encounter Visit Diagnoses Not on filedocumented in this encounter Care Teams Clinical Laboratory Aide Relationship Specialty Start Date End Date Juan Pablo Dominguez MD PCP - General FAMILY MEDICINE SPORTS MEDICINE 11/15/19 08/22/20 documented as of this encounter
--- OUTSIDE RECORDS SUMMARY | 2024-03-15 01:13 | XMS_ITS | Encounter Summary ---
Author Organization [facility] Address [facility] [facility] [place] [address] [place] [address] Care Team Providers Care Public Health Informatician Name Role Phone Juan Pablo Dominguez MD Primary Care Provider Unavailabl e Reason for Referral * Consultation (Routine) - Closed Specialty Diagnoses / Procedures Referred By Ian malagon Referred To Contact NEUROLOGY Diagnoses Memory deficits Juan Pablo Dominguez MD [address] [address] Phone: tel: Referral ID Status Reason Start Date Expiration Date V isits Requested Visits Authorized [id number] Closed Specialty Services 12/08/2019 12/06/2020 1 1 Scheduling Instructions [facility] Memory clinic Reason for Visit * Reason Onset Date Comments Referral Request 12/05/2019 neurology Encounter Details Date Type Department Care Team (Late st Contact Info) Description 12/05/2019 Telephone [facility] Family Medicine [facility] [phone] [address] Juan Pablo Dominguez MD Referral Request (neurology) Social History Tobacco Use Types Packs/Day Years [...] Progress Notes * Harshal Deal MA - 12/05/2019 9:40 AM CDT Referral sent for Neuro documented in this encounter Plan of Treatment Upcoming Encounters Date Type Department Care Team (Late st Contact Info) Description 04/14/2024 2:00 PM [employer] ENGINEER Office Visit [facility] Multispecialty Care - [facility] [address] [facility], [address] [place] [id number] Julio Pulido MD [address] [place] [address] Scheduled Referrals Name Type Priority Associated Diagnoses Orde r Schedule Ambulatory referral to Neurology (OTHER) Referral Routine Memory deficits Ordered: 12/05/2019 documented as of this encounter Visit Diagnoses Diagnosis Memory deficits- Primary Memory loss documented in this encounter Care Teams Public Health Informatician Relationship Specialty Start Date End Date Juan Pablo Dominguez MD PCP - General FAMILY MEDICINE SPORTS MEDICINE 11/15/19 08/22/20 documented as of this encounter
--- OUTSIDE RECORDS SUMMARY | 2024-03-15 01:53 | XMS_ITS | Encounter Summary ---
Author Organization [facility] Address [address] [place] [address] Phone Care Team Providers Care Hat Marker Name Role Phone Juan AamritaSanjeev Edward LAINEZ Primary Care Provider + Blade Phillips MD Unavailable [phone] Encounter Details Date Type Department Care Team (Late st Contact Info) Description 10/23/2023 2:05 PM CDT Lab [facility] [address] [address] Lab, [facility] Macrocytic anemia; Iron deficiency; Low serum haptoglobin; H/O mechanical aortic valve replacement Social History Tobacco Use Types Packs/Day Years Used Date Smoking Tobacco: Never Smokeless Tobacco: Never Alcohol Use Standard Drinks/Week Comments Never 0 (1 standard drink = 0.6 oz pur e alcohol) Comments Unknown Sex and Gender Information Value Date Recorded Sex Assigned at Not on file Legal Sex Female 1:54 PM CDT Gender Identity Not on file Sexual Orientation Not on file documented as of this encounter Plan of Treatment Not on file documented as of this encounter Procedures Procedure Name Priority Date/Time Associated Diagnosis Comments [employer] ADVANCED NGS MYELOID PANEL Routine 10/23/2023 2:55 PM CDT Macrocytic anemia Iron deficiency Low serum haptoglobin H/O mechanical aortic valve replacement SERUM FREE LIGHT CHAINS, [place] Routine 10/23/2023 2:07 PM CDT IRON W/ IRON BINDING CAPACITY [place] Routine 10/23/2023 2:07 PM CDT Macrocytic anemia Iron deficiency Low serum haptoglobin H/O mechanical aortic valve replacement IMMUNOFIXATION, SERUM [place] Routine 10/23/2023 2:07 PM CDT Macrocytic anemia Iron deficiency Low serum haptoglobin H/O mechanical aortic valve replacement CBC WITH AUTO DIFF [place] Routine 10/23/2023 2:07 PM CDT VITAMIN B12 Routine 10/23/2023 2:07 PM CDT Macrocytic anemia Iron deficiency Low serum haptoglobin H/O mechanical aortic valve replacement RETICULOCYTE COUNT (RETIC) Routine 10/23/2023 2:07 PM CDT Macrocytic anemia Iron deficiency Low serum haptoglobin H/O mechanical aortic valve replacement LACTATE DEHYDROGENASE (LD) Routine 10/23/2023 2:07 PM CDT Macrocytic anemia Iron deficiency Low serum haptoglobin H/O mechanical aortic valve replacement IMMUNOGLOBULIN IGA, IGG & IGM QUANT Routine 10/23/2023 2:07 PM CDT Macrocytic anemia Iron deficiency Low serum haptoglobin H/O mechanical aortic valve replacement HAPTOGLOBIN Routine 10/23/2023 2:07 PM CDT Macrocytic anemia Iron deficiency Low serum haptoglobin H/O mechanical aortic valve replacement FOLIC ACID (FOLATE) Routine 10/23/2023 2 :07 PM CDT Macrocytic anemia Iron deficiency Low serum haptoglobin H/O mechanical aortic valve replacement FERRITIN Routine 10/23/2023 2:07 PM CDT Macrocytic anemia Iron deficiency Low serum haptoglobin H/O mechanical aortic valve replacement ELECTROPHORESIS W/ TOTAL PROTEIN SERUM Routine 10/23/2023 2:07 PM CDT Macrocytic anemia Iron deficiency Low serum haptoglobin H/O mechanical aortic valve replacement DIRECT ANTIGLOBULIN TEST (VAN) Routine 10/23/2023 2:07 PM CDT Macrocytic anemia Iron deficiency Low serum haptoglobin H/O mechanical aortic valve replacement CMP (COMPREHENSIVE METABOLIC PANEL) Routine 10/23/2023 2:07 PM CDT Macrocytic anemia Iron deficiency Low serum haptoglobin H/O mechanical aortic valve replacement documented in this encounter Results * [employer] ADVANCED NGS MYELOID PANEL (10/23/2023 2:55 PM CDT) Pathologist [facility] [employer] NGS MYELOID PANEL, [place] [id number] PROCIOUS CANCER TOLL TEST DESK WORKER OF [facility] Comment: [employer] Advanced NGS Myeloid Panel Final Report - RESULT SUMMARY: NORMAL - DETECTED GENOMIC ALTERATIONS: ??No Mutations Identified - TUMOR TYPE: ??Not Provided - CLINICAL INFORMATION: ??Provided ICD-10 code: D53.9 (Nutritional anemia, unspecified). - PERTINENT NEGATIVE RESULTS: ??The following genes are NEGATIVE for clinically relevant mutations. ??Mutational hotspots and surrounding exonic regions were interrogated ??for DNA level point mutations and indels (fusions not assayed). ??ABL1, ANKRD26, ASXL1, ATRX, BCOR, BCORL1, BRAF, CALR, CBL, CCND2, ??CDKN2A, CEBPA, CSF3R, CUX1, DDX41, DNMT3A, ETNK1, ETV6, EZH2, FBXW7, ??FLT3, GATA2, HRAS, IDH1, IDH2, JAK2, KDM6A, KIT, KMT2A, KRAS, ??MAP2K1, MPL, MYD88, NF1, NPM1, NRAS, PDGFRA, PHF6, PTEN, PTPN11, ??RUNX1, SETBP1, SF3B1, SRSF2, STAG2, TET2, TP53, U2AF1, WT1, ZRSR2 - MUTATIONAL HOTSPOTS: ??The following recurrently mutated codons demonstrated adequate ??sequencing coverage depths and show wild type sequences only. ??Gene: ABL1 Codons: 235, 244, 250, 252, 253, 255, 299, 311, 315, 317, ??351, 359, 396 ??Gene: ASXL1 Codons: 635, 646 ??Gene: BCOR Codons: 1459 ??Gene: BRAF Codons: 581, 594, 597, 600, 601 ??Gene: CALR Codons: 367, 385 ??Gene: CBL Codons: 420 ??Gene: CSF3R Codons: 618 ??Gene: DNMT3A Codons: 882 ??Gene: EZH2 Codons: 646 ??Gene: FLT3 Codons: 835 ??Gene: HRAS Codons: 12, 13, 61 ??Gene: IDH1 Codons: 132 ??Gene: IDH2 Codons: 140, 172 ??Gene: JAK2 Codons: 533, 534, 535, 536, 537, 538, 539, 540, 541, 542, ??543, 544, 545, 546, 547, 617 ??Gene: KIT Codons: 557, 559, 560, 576, 642, 816, 820, 822 ??Gene: KRAS Codons: 12, 13, 59, 60, 61 ??Gene: MPL Codons: 515 ??Gene: MYD88 Codons: 265 ??Gene: NPM1 Codons: 288 ??Gene: NRAS Codons: 12, 13, 61 ??Gene: PTEN Codons: 92, 93, 130, 132, 136, 212, 233 ??Gene: PTPN11 Codons: 61, 69, 72, 76, 503, 510 ??Gene: SETBP1 Codons: 868, 870 ??Gene: SF3B1 Codons: 623, 666, 700, 741 ??Gene: SRSF2 Codons: 95 ??Gene: TP53 Codons: 175, 213, 245, 248, 273, 282 ??Gene: U2AF1 Codons: 34, 157 ??The following recurrently mutated codons demonstrated inadequate ??sequencing coverage depths (<100x), and the possibility of ??undersensitive detection cannot be excluded. ??Not Applicable - TRANSCRIPT ACCESSIONS FOR INTERROGATED GENES: ??Gene: ABL1 Transcript ID: [id number] ??Gene: ANKRD26 Transcript ID: [id number] ??Gene: ASXL1 Transcript ID: [id number] ??Gene: ATRX Transcript ID: [id number] ??Gene: BCOR Transcript ID: [id number] ??Gene: BCORL1 Transcript ID: [id number] ??Gene: BRAF Transcript ID: [id number] ??Gene: CALR Transcript ID: [id number] ??Gene: CBL Transcript ID: [id number] ??Gene: CCND2 Transcript ID: [id number] ??Gene: CDKN2A Transcript ID: NM_[id number] ??Gene: CEBPA Transcript ID: [id number] ??Gene: CSF3R Transcript ID: [id number] ??Gene: CUX1 Transcript ID: [id number] ??Gene: DDX41 Transcript ID: [id number] ??Gene: DNMT3A Transcript ID: [id number] ??Gene: ETNK1 Transcript ID: [id number] ??Gene: ETV6 Transcript ID: [id number] ??Gene: EZH2 Transcript ID: [id number] ??Gene: FBXW7 Transcript ID: [id number] ??Gene: FLT3 Transcript ID: [id number] ??Gene: GATA2 Transcript ID: [id number] ??Gene: HRAS Transcript ID: [id number] ??Gene: IDH1 Transcript ID: [id number] ??Gene: IDH2 Transcript ID: [id number] ??Gene: JAK2 Transcript ID: [id number] ??Gene: KDM6A Transcript ID: [id number] ??Gene: KIT Transcript ID: [id number] ??Gene: KMT2A Transcript ID: [id number] ??Gene: KRAS Transcript ID: [id number] ??Gene: MAP2K1 Transcript ID: [id number] ??Gene: MPL Transcript ID: [id number] ??Gene: MYD88 Transcript ID: [id number] ??Gene: NF1 Transcript ID: [id number] ??Gene: NPM1 Transcript ID: [id number] ??Gene: NRAS Transcript ID: [id number] ??Gene: PDGFRA Transcript ID: [id number] ??Gene: PHF6 Transcript ID: [id number] ??Gene: PTEN Transcript ID: [id number] ??Gene: PTPN11 Transcript ID: [id number] ??Gene: RUNX1 Transcript ID: [id number] ??Gene: SETBP1 Transcript ID: [id number] ??Gene: SF3B1 Transcript ID: [id number] ??Gene: SRSF2 Transcript ID: [id number] ??Gene: STAG2 Transcript ID: [id number] ??Gene: TET2 Transcript ID: [id number] ??Gene: TP53 Transcript ID: [id number] ??Gene: U2AF1 Transcript ID: [id number] ??Gene: WT1 Transcript ID: [id number] ??Gene: ZRSR2 Transcript ID: [id number] - COVERAGE DEPTHS: ??Among the following targeted exons, >50% of coding sequences failed ??to achieve >100x coverage depths. Analytic sensitivity for ??potentially relevant genomic alterations may therefore be limited ??among the following interrogated loci: ??Not Applicable INTERPRETATION [place], [place] 542921-3 SEE BELOW [facility] Comment: INTERPRETATION SUMMARY: - ??This was a NORMAL sequencing study in which no disease associated ??mutations or variants of unclear significance were identified in the ??tested specimen. The absence of mutations should be interpreted in ??the context of other clinical and pathologic findings. Normal ??sequencing results may be a consequence of testing a sample with ??little or no neoplastic cells present. ??Clinical and pathologic correlation is required to interpret these ??findings. [place], [place] 454580-5 SEE BELOW [facility] Comment: METHODS: ??Tissue microdissection and DNA isolation from tumor enriched areas ??are based on histologic review by an appropriately board certified ??pathologist; specimens with minimal tumor cellularity may be ??rejected. Nucleic acid is isolated from the submitted specimen. ??Anchored Multiplex PCR (AMP) is performed to generate ??target-enriched next generation sequencing (NGS) libraries. AMP ??utilizes unidirectional gene-specific primer (GSP) oligonucleotides ??that enrich for both known and unknown mutations. Each genomic DNA ??fragment is also tagged with a unique molecular identifier sequence ??(CRISTOPHER), used after sequencing on an Illumina [employer] instrument ([place], [place]) with paired end, 151 base pair reads to collapse PCR ??duplicates and enable accurate counting of variant allelic ??frequencies. A minimum number of 100 unique reads (after removal of ??PCR duplicates) to detect a mutation is required. An automated ??process that takes into account statistical confidence of base ??calling and alignment and mapping quality identifies variants ??(Simio Analysis Software version 6.2.7, Released 03 Aug 2019). ??Following mapping of the read data to the human genome (reference ??build GRCh37/hg19), single nucleotide variants (SNVs), and insertion ??deletion events (Indels) with an allele frequency (AF) greater than ??2% are detected utilizing [employer] bioinformatic analytical ??pipeline with the exception of FLT3 (0.8% AF), JAK2 p.V617F (0.8% ??AF) and MYD88 p.L265P (1% AF). Detection of Insertions larger than ??63 bases have not been validated. Detection of Deletions larger than ??52 bases have not been validated. Reported variants include known ??disease associated mutations and unclear variants with little or no ??literature support. Benign population polymorphisms are not included ??in the report. For low level FLT3 internal tandem duplication (ITD) ??and/or FLT3 tyrosine kinase domain (TKD) variant(s) orthogonal ??polymerase chain reaction (PCR) testing confirmations, a multiplex ??PCR is performed followed by digestion with a restriction ??endonuclease. Products are by capillary electrophoresis ??using an [employer]zer ([place], [place], [place]) and ??data was analyzed with [employer]. The FLT3-ITD mutation ??status is determined by calculating the allele ratio (AR) as the ??ratio of the area under the curve of mutant to wild type alleles. ??The FLT3-TKD mutation status is determined by calculating the ??variant allele frequency (VAF) as a percentage of mutant alleles to ??mutant and wild type alleles. The limit of detection is 0.07 AR and ??5% VAF for FLT3-ITD and FLT3-TKD (D835, I836) variants, ??respectively. The mutation hotspots of the following genes were ??interrogated by this test: ABL1, ANKRD26, ASXL1, ATRX, BCOR, BCORL1, ??BRAF, CALR, CBL, CCND2, CDKN2A, CEBPA, CSF3R, CUX1, DDX41, ??DNMT3A,ETNK1, ETV6, EZH2, FBXW7, FLT3, GATA2, HRAS, IDH1, IDH2, JAK2 ??(inclusive of V617F & exon 12), KDM6A, KIT, KMT2A, KRAS, MAP2K1, ??MPL, MYD88, NF1, NPM1, NRAS, PDGFRA, PHF6, PTEN, PTPN11, RUNX1, ??SETBP1, SF3B1, SRSF2, STAG2, TET2, TP53, U2AF1, WT1, ZRSR2. ??Variant Tier categorization is rendered in accordance with the ??AMP/ASCO/CAP consensus recommendations (see Li et al. Standards and ??Guidelines for the Interpretation and Reporting of Sequence Variants ??in Cancer: A Joint Consensus Recommendation of the Association for ??Molecular Pathology, [place] Society of Clinical Oncology, and ??College of [place] Pathologists. The Journal of molecular ??diagnostics: JMD. 2017 Mar;19(1):4-23. doi: ??10.1016/j.jmoldx.2016.10.002. PubMed Central PMCID: [id number]. ??PubMed PMID: 12771790)). ??OnkoSightAdvanced was developed and its performance characteristics ??were determined by [employer], a division of [employer]. ??This test has not been cleared or approved by the US Food and Drug ??Administration (FDA). The FDA has determined that such a clearance ??or approval is not necessary. Pursuant to the requirements of ??CLIA'88, this laboratory has established and verified the tests ??accuracy and precision. However, a false positive or false negative ??result incurred during any phase of the testing cannot be completely ??excluded. Large insertion/deletion (eg. FLT3-ITD aberrations) may ??not be detected by this assay due to the limit of sequencing read ??length and bioinformatics processing. This assay does not detect ??translocation/gene fusion. This assay does not determine variant ??causality, or whether a variant is inherited or somatically ??acquired. These results may be used for clinical or research ??purposes and therefore should be carefully considered within the ??context of other clinical and laboratory data. In the absence of an ??appropriate clinical context, the clinical utility of ??OnkoSighttesting is not clearly defined. The information contained ??in this report reflects the current interpretation of the findings ??as of the date of the report, based on the available scientific ??information. This information, which comes from numerous sources, is ??subject to change room attendant time in response to future scientific and ??medical findings and correlations. [employer]. makes ??no representation or warranty of any kind regarding the accuracy of ??information provided or contained in these manuscripts, references ??or other sources of information. If any of the information provided ??by or contained in the referenced material is later deemed to be ??inaccurate, this may impact the accuracy of this report and ??interpretation of the findings. [employer]. is not ??obligated to notify you of any impact that additional or modified ??information, or future scientific or medical research may have on ??this report. The laboratory is not responsible for reanalysis of the ??data or updated classification of this report or past ??reportsfindings as the knowledge evolves. A medical provider can ??request a reassessment of clinical significance of variants and/or ??re-review of the clinical interpretation of the findings. Additional ??charges may apply for the updated report. Please contact the ??laboratory for more information if update is requested. This assay ??has been approved by the [facility] based on initial validation; ??orthogonal testing for full validation is currently ongoing. Please ??contact the laboratory for more information if update is requested. [place], [place] 004867-4 SEE BELOW CANCER TOLL TEST DESK WORKER OF [facility] Comment: REFERENCES: ??1. Marian MM, Soni M, Roya EJ, Devin S, Tj NI, Cesar S, ?Macy AM, Efrain CL, Marely DJ, Nicolás A, Markos ?[place]. Standards and Guidelines for the Interpretation and Reporting ?of Sequence Variants in Cancer: A Joint Consensus Recommendation ?of the Association for Molecular Pathology, [place] Society of ?Clinical Oncology, and College of [place] Pathologists. The ?Journal of molecular diagnostics : JMD. 2017 Mar;19(1):4-23. doi: ?10.1016/j.jmoldx.2016.10.002. PubMed PMID: 24029930. PubMed ?Central PMCID: [id number]. ??2. Genome Aggregation Database (gnomAD), [place], [place] (URL: ?https://gnomad.broadKardiumtitute.org) [October,] ??3. [employer] Software Release Notes V2.1.0; June 24, 2019. h ?ttps://support.Medallia/content/dam/Optaros-support/documents ?/documentation/software_documentation/trusight/jqoljvkw-weafoolk-2 ?00/1000000114054_00_TSO5ITeam_v2_1_Customer_Release_Notes.pdf. ??4. Gilmer Armstrong, Rafiq M, Shabbir R, Monica W, Yuri Mcghee, Working Group of ?the [place] College of Medical Genetics and Genomics (ACMG) ?Laboratory Catalytic Case Operator Committee. ACMG technical standards ?and guidelines for genetic testing for inherited colorectal cancer ?(Duggan syndrome, familial adenomatous polyposis, and ?MYH-associated polyposis). Genetics in medicine : official journal ?of the [place] College of Medical Genetics. 2014 ?Sathish;16(1):101-16. Epub 2012Feb 10. doi: 10.1038/gim.2013.166. ?PubMed PMID: 52556877. ??5. Daniele ZR, Valerio CF, Joshua D, Lfores L, Ali SM, Evaristo R, ?Girma A, Sampson B, Ann A, Che J, Mcdonald F, He Y, Sun ?J, Vaibhav U, Contreras M, Funmilyao DS, Eric S, Almaz J, Ricardo MAZA, Ross ?JS, Itzel L, Jason POLLARD, Delores PJ, Gary GM. Analysis of ?100,000 human cancer genomes reveals the landscape of tumor ?mutational burden. Genome medicine. 2017 Jun 25;9(1):34. Epub 2017 ?Jun 25. doi: 10.1186/c43728-556-6087-5. PubMed PMID: 41206854. ?PubMed Central PMCID: SQO5176025. ??6. Stan JA, Janie CM, Raman EQ, Carmine MT, Gloria ?ES, Josefina TL, Jaspal B, Genaro PS, Klerefugio N, Mian SJ, ?David CC. Microsatellite instability in prostate cancer by PCR ?or next-generation sequencing. Journal for immunotherapy of ?cancer. 2018 Jun 23;6(1):29. Epub 2018 Jun 23. doi: ?10.1186/s90277-424-4286-f. PubMed PMID: 90927508. PubMed Central ?PMCID: PNL9656931. ??7. Erica A, Daljit K, Ysabel S, Ralf M, Kathie K, Mariano J, ?Mendy B, Trina Gamino. Molecular Diagnostics of Gliomas Using ?Next Generation Sequencing of a Glioma-Tailored Gene Panel. Brain ?pathology ([place]). 2017 May;27(2):146-159. Ep 2016 ?Jun 25. doi: 10.1111/bpa.53495. PubMed PMID: 20127652. ??8. Liban C, Alli LM, Li X, Darron WK, Louie W. IDH1/2 mutations ?target a messer hallmark of cancer by deregulating cellular ?metabolism in glioma. Neuro-oncology. 2013 Nov;15(9):1114-26. Epub ?2012Sep 26. doi: 10.1093/neuonc/xjw611. PubMed PMID: 22205612. ?PubMed Central PMCID: QUC7136082. ??9. Markos GUILLEN, Jonathan AI, Ally MA, Cesar S, Tay S, Best RL, ?Itzel FS, Ulises J, Gallo NM, Shiloh IF, Koyr YE, ?Maranda Franks. Targeted next-generation sequencing panel (GlioSeq) ?provides comprehensive genetic profiling of central nervous system ?tumors. Neuro-oncology. 2016 May;18(3):379-87. Epub 2014Feb 22. ?doi: 10.1093/neuonc/usm220. PubMed PMID: 23701516. PubMed Central ?PMCID: QVP6085896. ??10. Dilan PJ, Meghna A, Bill HJ, Roya EJ. A wide spectrum ?of EGFR mutations in glioblastoma is detected by a single clinical ?oncology targeted next-generation sequencing panel. Experimental ?and molecular pathology. 2015 Payam;98(3):568-73. Epub 2014Jun 28. ?doi: 10.1016/j.yexmp.2015.04.006. PubMed PMID: 43644828. PubMed ?Central PMCID: LRH8738920. REPORT [place], [place] 033561-5 SEE BELOW CANCER TOLL TEST DESK WORKER [facility] Comment: Jason Jarrett M.D., Job Compositor Electronically signed by Arti De Leon, PhD, [facility] [employer] is a division of [employer] [facility] [employer] [place], [place] [id number] Created ThuOct 29 15:28:16 EDT 2023 10/23/2023 2:55 PM CDT Narrative CANCER TOLL TEST DESK WORKER [facility] - 10/30/2023 3:33 PM CDT Testing performed at: [employer] [place] [address], Job Compositor: ??Dr. Jason Jarrett M.D.; [facility] Accn#:[id number] Release to patient->Immediate Blade Phillips MD LAB SEND OUTS Final Res ult Performing Organization Address City/[facility]/ZIP Co de Phone Number CANCER TOLL TEST DESK WORKER [facility] [place] [address], [place] [phone] * (ABNORMAL) SERUM FREE [place], [place] (10/23/2023 2:07 PM CDT) FREE KAPPA LT CHAINS 45.8(H) 2.9 - 20.7 mg/L CANCER TOLL TEST DESK WORKER [facility] FREE LAMBDA LT CHAINS 35.0(H) 4.2 - 27.6 mg/L CANCER TOLL TEST DESK WORKER [facility] KAPPA/LAMBDA RATIO 1.31 0.22 - 1.74 CANCER TOLL TEST DESK WORKER [facility] 10/23/2023 2:07 PM CDT Blade Phillips MD LAB SEND OUTS Final Res ult Performing Organization Address [facility]/ZIP Co de Phone Number CANCER TOLL TEST DESK WORKER [facility] [place] [address], [place] [phone] * (ABNORMAL) CBC WITH AUTO DIFF [place] (10/23/2023 2:07 PM CDT) WBC 5.6 4.0 - 10.0 10*3/uL CANCER TOLL TEST DESK WORKER [facility] HGB 10.8(L) 11.2 - 15.7 g/dL CANCER TOLL TEST DESK WORKER [facility] HCT 36.3 34.1 - 44.9 % CANCER TOLL TEST DESK WORKER [facility] PLT 276 163 - 369 10*3/uL CANCER TOLL TEST DESK WORKER [facility] MPV 11.6 9.4 - 12.4 fL CANCER TOLL TEST DESK WORKER [facility] RBC 3.54(L) 3.93 - 5.22 10*6/uL CANCER TOLL TEST DESK WORKER [facility] MCV 103(H) 79 - 95 fL CANCER TOLL TEST DESK WORKER [facility] MCH 30.5 25.6 - 32.2 pg CANCER TOLL TEST DESK WORKER [facility] MCHC 29.8(L) 32.2 - 36.5 g/dL CANCER TOLL TEST DESK WORKER [facility] RDW 17.2(H) 11.6 - 14.4 % CANCER TOLL TEST DESK WORKER [facility] Neutrophils % 60.4 36.0 - 66.0 % CANCER TOLL TEST DESK WORKER [facility] Lymphocytes % 19.4 19.0 - 40.0 % CANCER TOLL TEST DESK WORKER [facility] Monocytes % 13.1(H) 4.1 - 12.1 % CANCER TOLL TEST DESK WORKER [facility] Eosinophils % 5.5(H) 0.0 - 3.5 % CANCER TOLL TEST DESK WORKER OF [facility] Basophils % 1.2(H) 0.0 - 1.0 % CANCER TOLL TEST DESK WORKER [facility] Absolute Neutrophils 3.4 1.4 - 6.6 10*3/uL CANCER TOLL TEST DESK WORKER [facility] Absolute Lymphocytes 1.1 0.8 - 4.0 10*3/uL CANCER TOLL TEST DESK WORKER [facility] Absolute Monocytes 0.7 0.2 - 1.2 10*3/uL CANCER TOLL TEST DESK WORKER [facility] Absolute Eosinophils 0.3 0.0 - 0.4 10*3/uL CANCER TOLL TEST DESK WORKER [facility] Absolute Basophils 0.1 0.0 - 0.1 10*3/uL CANCER TOLL TEST DESK WORKER [facility] 10/23/2023 2:07 PM CDT Blade Phillips MD LAB SEND OUTS Final Res ult CANCER TOLL TEST DESK WORKER [facility] [place] [address], * DIRECT ANTIGLOBULIN TEST (VAN) (10/23/2023 2:07 PM CDT) Pathologist Andrez BRADY', DIRECT NEGATIVE NEGATIVE CANCER TOLL TEST DESK WORKER [facility] Blood 10/23/2023 2:07 PM CDT Narrative CANCER TOLL TEST DESK WORKER [facility] - 10/26/2023 7:35 AM CDT TESTING PERFORMED AT: [] [facility] [address] [place] [address], [address], PHONE: [phone], TALENT DEVELOPMENT CONSULTANT: ИРИНА LIU, PHD Release to patient->Immediate Blade Phillips MD BLOOD BANK ORDERABLES Fin al Result CANCER TOLL TEST DESK WORKER [facility] [place] [address], * (ABNORMAL) CMP (COMPREHENSIVE METABOLIC PANEL) (10/23/2023 2:07 PM CDT) Glucose 142(H) 70 - 105 mg/dL [facility] Blood Urea Nitrogen 17 7 - 25 mg/dL [facility] Creatinine 1.2 0.6 - 1.2 mg/dL [facility] Sodium 139 136 - 145 mEq/L [facility] Potassium 4.2 3.5 - 5.1 mEq/L [facility] Chloride 99 98 - 107 mEq/L [facility] Bicarbonate 34(H) 21 - 31 mEq/L [facility] Total Bilirubin 0.3 0.3 - 1.0 mg/dL [facility] Alk. Phosphatase 77 34 - 104 U/L [facility] Aspartate Aminotransferase 18 13 - 39 U/L [facility] Alanine Aminotransferase 12 7 - 52 U/L [facility] Total Protein 6.2(L) 6.4 - 8.9 g/dL [facility] Albumin 3.7 3.5 - 5.7 g/dL [facility] Calcium 11.0(H) 8.6 - 10.3 mg/dL [facility] Anion Gap 10.2 7.0 - 15.0 mEq/L [facility] Globulin 2.5 2.0 - 3.5 g/dL [facility] EGFR 46(L) >60 ml/min/1. 73m2 [facility] Comment: This eGFR is calculated using 2020 CKD-EPI Creatinine equation without race modifier based on the NKF-ASN task force recommendations Blood 10/23/2023 2:07 PM CDT Narrative CANCER TOLL TEST DESK WORKER [facility] - 10/23/2023 3:10 PM CDT Release to patient->Immediate IS THE PATIENT REQUIRED TO BE FASTING FOR 8 HOURS?->No Blade Phillips MD CHEMISTRY ORDERABLES Christen l Result CANCER TOLL TEST DESK WORKER [facility] [address] [place] [address], * LACTATE DEHYDROGENASE (LD) (10/23/2023 2:07 PM CDT) LDH 217 140 - 271 U/L [facility] TOLL TEST DESK WORKER [facility] Blood 10/23/2023 2:07 PM CDT Narrative [facility]CER TOLL TEST DESK WORKER [facility] - 10/23/2023 3:10 PM CDT Release to patient->Immediate Blade Phillips MD CHEMISTRY ORDERABLES Christen l Result Performing Organization Address [facility] Co de Phone Number CANCER TOLL TEST DESK WORKER [facility] [address] [place] [address], [place] [phone] * ELECTROPHORESIS W/ TOTAL PROTEIN SERUM (10/23/2023 2:07 PM CDT) PROTEIN, TOTAL, SERUM 6.3 6.0 - 8.5 G/DL [facility] TOLL TEST DESK WORKER [facility] ALBUMIN 3.1 2.9 - 4.4 G/DL [facility] TOLL TEST DESK WORKER [facility] [id number] 0.4 0.0 - 0.4 G/DL [facility] TOLL TEST DESK WORKER [facility] [id number] 0.7 0.4 - 1.0 G/DL CANC[facility] TOLL TEST DESK WORKER [facility] BETA GLOBULIN 1.2 0.7 - 1.3 G/DL [facility] TOLL TEST DESK WORKER [facility] GAMMA GLOBULIN 0.9 0.4 - 1.8 G/DL CANCER TOLL TEST DESK WORKER [facility] M-SPIKE NOT OBSERVED NOT OBSERVED G/DL [facility]ER TOLL TEST DESK WORKER [facility] GLOBULIN, TOTAL 3.2 2.2 - 3.9 G/DL [facility]CER TOLL TEST DESK WORKER [facility] A/G RATIO 1.0 0.7 - 1.7 [facility] [address] [facility] PLEASE NOTE: COMMENT CANCER TOLL TEST DESK WORKER [facility] Comment: PROTEIN ELECTROPHORESIS SCAN WILL FOLLOW VIA COMPUTER, MAIL, OR GROUND HELPER STREET RAILWAY DELIVERY. PDF . CANCER ANTHONY TER [facility] Blood 10/23/2023 2:07 PM CDT Narrative [facility] - 10/26/2023 11:07 AM CDT TESTING PERFORMED AT: [] [facility], [address] [place] [address], [phone], PHONE: [phone], TALENT DEVELOPMENT CONSULTANT: ИРИНА LIU, PHD Release to patient->Immediate Blade Phillips MD CHEMISTRY ORDERABLES Christen l Result Performing Organization Address City/[facility]/ZIP Co de Phone Number CANCER TOLL TEST DESK WORKER [facility] [address] [place] [address], [place] [phone] * IMMUNOFIXATION, SERUM [place] (10/23/2023 2:07 PM CDT) IMMUNOFIXATION RESULT, SERUM COMMENT [facility] Comment:NO MONOCLONALITY DET ECTED. 10/23/2023 2:07 PM CDT Narrative [facility] - 10/26/2023 11:07 AM CDT TESTING PERFORMED AT: [] [facility], [address] [place] [address], [phone], PHONE: [phone], TALENT DEVELOPMENT CONSULTANT: ИРИНА LIU, PHD Release to patient->Immediate Blade Phillips MD LAB SEND OUTS Final Res ult CANCER TOLL TEST DESK WORKER [facility] [place] [address] [address] [place] [address], [place] [phone] * IMMUNOGLOBULIN IGA, IGG & IGM QUANT (10/23/2023 2:07 PM CDT) IGG 823 635 - 1,741 mg/dL [facility] IGA 261 66 - 433 mg/dL [facility] IGM 86 45 - 281 mg/dL [facility] TOLL TEST DESK WORKER [facility] Blood 10/23/2023 2:07 PM CDT Narrative CANCER TOLL TEST DESK WORKER [facility] - 10/26/2023 2:07 PM CDT Release to patient->Immediate Blade Phillips MD CHEMISTRY ORDERABLES Christen l Result CANCER TOLL TEST DESK WORKER [facility] [place] [address] [place] [address], * VITAMIN B12 (10/23/2023 2:07 PM CDT) Vitamin B12 839 180 - 914 pg/mL CANCER TOLL TEST DESK WORKER [facility] Blood 10/23/2023 2:07 PM CDT [facility] - 10/26/2023 2:52 PM CDT Release to patient->Immediate Blade Phillips MD CHEMISTRY ORDERABLES Christen l Result Performing Organization Address City/[facility]/ZIP Co de Phone Number CANCER TOLL TEST DESK WORKER [facility] [place] [address] [place] [address], * FOLIC ACID (FOLATE) (10/23/2023 2:07 PM CDT) Folate >20.00 >=5.90 ng/mL CANC[facility] TOLL TEST DESK WORKER [facility] Blood 10/23/2023 2:07 PM CDT [facility] CANCER TOLL TEST DESK WORKER [facility] - 10/26/2023 2:51 PM CDT Release to patient->Immediate IS THE PATIENT REQUIRED TO BE FASTING FOR 12 HOURS?->No Blade Phillips MD CHEMISTRY ORDERABLES Christen l Result CANCER TOLL TEST DESK WORKER [facility] [address] [place] [address], [place] [phone] * (ABNORMAL) IRON W/ IRON BINDING CAPACITY [place] (10/23/2023 2:07 PM CDT) IRON 61 50 - 212 ug/dL [facility] TOLL TEST DESK WORKER [facility] UIBC 271 155 - 355 ug/dL CAN[facility] TOLL TEST DESK WORKER [facility] TIBC 332 261 - 478 ug/dl [facility] TOLL TEST DESK WORKER [facility] % Saturation 18(L) 20 - 50 % CAN[facility] TOLL TEST DESK WORKER [facility] Blood 10/23/2023 2:07 PM CDT Narrative CANCER TOLL TEST DESK WORKER [facility] - 10/23/2023 3:10 PM CDT Release to patient->Immediate us Blade Phillips MD LAB SEND OUTS Final Res ult CANCER TOLL TEST DESK WORKER [facility] [address] [place] [address], * FERRITIN (10/23/2023 2:07 PM CDT) Ferritin 22 11 - 307 ng/mL CAN[facility] TOLL TEST DESK WORKER [facility] Blood 10/23/2023 2:07 PM CDT [facility] - 10/26/2023 2:51 PM CDT Release to patient->Immediate us Blade Phillips MD CHEMISTRY ORDERABLES Christen l Result Performing Organization Address City/[facility]/ZIP Co de Phone Number [facility]LL [facility] [address] [place] [address], [place] [phone] * (ABNORMAL) HAPTOGLOBIN (10/23/2023 2:07 PM CDT) HAPTO <30(L) 44 - 215 mg/dL CANCER TOLL TEST DESK WORKER [facility] Blood 10/23/2023 2:07 PM CDT [facility] - 10/26/2023 2:07 PM CDT Release to patient->Immediate us Blade Phillips MD CHEMISTRY ORDERABLES Christen l Result Performing Organization Address [facility] Co de Phone Number [facility] [address] [place] [address], * (ABNORMAL) RETICULOCYTE COUNT (RETIC) (10/23/2023 2:07 PM CDT) Reticulocyte count 2.15(H) 0.50 - 1.70 % CANCER TOLL TEST DESK WORKER [facility] RET-He 31.30 28.20 - 36.60 pg CANCER TOLL TEST DESK WORKER [facility] Comment: RET-He is a direct assessment of incorporation of iron into erythrocyte hemoglobin. It provides an indirect measure of the iron available for new erythropoiesis over past 2-4 days. Blood 10/23/2023 2:07 PM CDT Narrative [facility] - 10/23/2023 2:23 PM CDT Release to patient->Immediate Blade Phillips MD HEMATOLOGY ORDERABLES Fin al Result Performing Organization Address [facility] Co de Phone Number [facility] [address] [place] [address], documented in this encounter Visit Diagnoses Diagnosis Macrocytic anemia Unspecified deficiency anemia Iron deficiency Other disorders of iron metabolism Low serum haptoglobin H/O mechanical aortic valve replacement Heart valve replaced by other means documented in this encounter Care Teams Hat Marker Relationship Specialty Start Date End Date Sanjeev Webster DO [address] [place] [id number] PCP - General Family Medicine 09/14/23 Blade Phillips MD [address] [place] [phone] Oncology 09/14/23 documented as of this encounter
--- OUTSIDE RECORDS SUMMARY | 2024-03-15 01:53 | XMS_ITS | Encounter Summary ---
Author Organization [facility] Address [address] [place] [address] Phone Care Team Providers Care Color Matcher Name Role Phone Sanjeev Webster DO Primary Care Provider + Blade Phillips MD Unavailable [phone] Reason for Visit * Reason Comments New Patient * Consult, Test & Initiate Treatment (Routine) - Open Specialty Diagnoses / Procedures Referred By Contac t Referred To Contact Oncology Diagnoses Anemia Sanjeev Webster DO [address] [place] [address] Phone: tel: fax: Blade Phillips MD [address] [place] [phone] Phone: tel: fax: Referral ID Status Reason Start Date Expiration Date Visits Re quested Visits Authorized [id number] Open 1 1 Encounter Details Date Type Department Care Team (Late st Contact Info) Description 10/23/2023 1:00 PM CDT Office Visit [facility] [address] [address] Blade Phillips MD [address] [place] [address] Macrocytic anemia (Primary Dx); Iron deficiency; Low serum haptoglobin; H/O mechanical aortic valve replacement Social History Tobacco Use Types Packs/Day Years Used Date Smoking Tobacco: Never Smokeless Tobacco: Never Tobacco Cessation:Counseling Given: No Alcohol Use Standard Drinks/Week Comments Never 0 [...] Reading Time Taken Comments Blood Pressure 136/74 10/23/2023 1:26 PM CDT Pulse 78 10/23/2023 1:26 PM CDT Temperature 36.6 ??C (97.8 ??F) 10/23/2023 1:26 PM CD T Respiratory Rate 18 10/23/2023 1:26 PM CDT Oxygen Saturation 92% 10/23/2023 1:26 PM CDT Inhaled Oxygen Concentration - - Weight 83.9 kg (185 lb) 10/23/2023 1:26 PM CDT Height 160 cm (5' 3 ) 10/23/2023 1:26 PM CDT Body Mass Index 32.77 10/23/2023 1:26 PM CDT documented in this encounter Progress Notes * Blade Phillips MD - 10/23/2023 1:00 PM CDT Images from the original note were not included. Patient: Radha Huynh Age: 78 y.o. : 1945 Encounter Dept: [facility] Encounter Date: 10/23/2023 Care Team: Current Providers PCP: Sanjeev Webster DO Care Team Provider: Blade Phillips MD Encounter Provider: Blade Phillips MD Referring Provider: Sanjeev Webster DO N/A: Blade Phillips MD REASON FOR CONSULTATION: Macrocytic anemia. HISTORY OF PRESENT ILLNESS: Ms. Radha Huynh is a 78-year-old female who is referred for evaluation and management of a macrocytic anemia. The patient does have a history of iron deficiency. She is on chronic anticoagulation for underlying heart disease. She had recent blood work performed by her primary care physician which revealed a macrocytic anemia with a hemoglobin of 10.1, hematocrit 33.9. She had hemolysis workup done which revealed a low haptoglobin. Reticulocyte count 2.5%. LDH mildly elevated at 285. The patient states that she did have an aortic valve replacement that is mechanical. She has had no hematochezia or melena. She has had no shortness of breath or chest pain. DIAGNOSIS: 1. Macrocytic anemia. 2. History of iron deficiency. 3. 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 4. Mechanical aortic valve replacement. PAST TREATMENT: Blood work on 10/19/23 by primary care physician revealed a white count 5.17, hemoglobin 10.1, hematocrit 33.9, MCV 103.4, platelet count 255. Haptoglobin was undetectable. Reticulocyte count 2.5%. LDH 285. Iron 70, iron saturation 24%, ferritin 40. Vitamin B12 988, folic acid greater than 20. CURRENT TREATMENT: Anemia workup. TREATMENT GUIDELINES: Not applicable. PROGNOSIS: Not applicable. EXPECTED RESPONSE TO TREATMENT: Not applicable. EXPECTED QUALITY OF LIFE DURING TREATMENT: Not applicable. ECO PAIN: 0/10 PLAN FOR PAIN: Not applicable. CODE STATUS: Full code. END OF LIFE: ASSESSMENT: 1. Macrocytic anemia. 2. 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 3. History of iron deficiency. 4. Chronic atrial flutter, on anticoagulation. 5. Diastolic heart failure. 6. Graves disease. 7. Obstructive sleep apnea. 8. Anxiety. 9. Chronic kidney disease, stage 3. RECOMMENDATIONS: Ms. Radha Huynh is a 78-year-old female who is referred for evaluation and management of a macrocytic anemia. The patient has had a low haptoglobin and elevated LDH. The patient likely has some ongoing hemolysis secondary to her mechanical aortic valve. At this time we will plan on ruling out autoimmune hemolytic anemia. We will check a Brady test. We will repeat her hemolysis blood work. We will also check SPEP, serum immunofixation and free light chains. We will check iron studies, vitamin B12 and folate levels. Additionally, we will check an OnkoSight Myeloid Panel. We will plan on having the patient return tentatively in two to three weeks to review the above testing and further recommendations. The patient understands and agrees with the above treatment plan. Thank you again for allowing us to participate in the care of this patient. TIME SPENT: PAST MEDICAL HISTORY: 1. Macrocytic anemia. 2. Vitamin D deficiency. 3. Paroxysmal atrial flutter. 4. Obstructive sleep apnea. 5. Mild memory deficit. 6. Left bundle branch block. 7. Graves disease. 8. Diastolic heart failure. 9. CAD. 10. Chronic kidney disease, stage 3. 11. Anxiety. 12. Aneurysm. PAST SURGICAL HISTORY: 1. Status post mechanical aortic valve placement. 2. Cataract removal. MEDICATIONS: Reviewed in EMR chart. ALLERGIES: ATORVASTATIN, CORTISONE, HYDROCORTISONE, ROSUVASTATIN, BACITRACIN, NEOMYCIN AND POLYMYXIN B. FAMILY HISTORY: Significant for two brothers with prostate cancer. SOCIAL HISTORY: The patient is a lifetime nonsmoker. She denies any alcohol or illicit drug usage. REVIEW OF SYSTEMS: General: Patient denies fevers, chills, sweats, anorexia, fatigue, malaise, weight loss HEENT: Patient denies visual changes, blurring of vision, double vision or eye irritation Cardiovascular: Patient denies any palpitations, chest pain, angina, or labile BP problems Respiratory: Patient denies shortness of breath, dyspnea, cough, hemoptysis, or sputum production Gastrointestinal: Patient denies abdominal distention, pain, diarrhea, constipation, and blood in stool. Genitourinary: Denies dysuria, hematuria, discharge, frequency, hesitancy, nocturia, incontinence, genital sores, impotence or decreased libido Musculoskeletal: Patient denies pain in joints or bones. Denies posture problems. Denies joint swelling. Heme/lymphatic: Patient denies abnormal bruising, bleeding, and enlarged lymph nodes Skin: Patient denies skin rashes, pruritus, or suspicious skin lesions. Neurologic: Patient denies focal weakness and numbness. No difficulties with coordination or balance. Psychiatric: Patient denies problems thinking. No abnormal thoughts such as delusions or paranoia. Endocrine: Patient denies problems with thyroid function. No goiter problems or diabetes mellitus. Allergic/Immun: Patient denies frequent infection or susceptibility to infection. PHYSICAL EXAMINATION: GENERAL: The patient is a pleasant female. She is sitting up on the examining table in no acute distress. HEENT: Extraocular movements intact. Pupils equal and reactive. Negative for icterus. NECK: Neck is supple. Trachea is midline. No lymphadenopathy. HEART: Regular rate, S1, S2. No murmurs, rubs, or gallops. LUNGS: Clear to auscultation. No rhonchi or rales. ABDOMEN: Soft, nontender. No organomegaly. EXTREMITIES: No edema, cyanosis, or clubbing. NEURO: The patient is alert and oriented x3. No gross focal or true deficit. LABORATORY/PATHOLOGY/IMAGING NOTES: Reviewed and in the chart. Blade Phillips MD/cira Vitals: Vitals: 10/23/23 1326 BP: 136/74 BP Location: Left Arm BP Position: Sitting BP Cuff Size: Regular Pulse: 78 Resp: 18 Temp: 97.8 ??F (36.6 ??C) TempSrc: Temporal SpO2: 92% Weight: 185 lb (83.9 kg) Height: 5' 3 (1.6 m) Body surface area is 1.93 meters squared. Body mass index is 32.77 kg/m??. Pain Score: 3 Pain Loc: Chest Allergies: Allergies Allergen Reactions Atorvastatin Other (see Comments) Leg pain/cramps. Resolved after stopping. Benzalkonium Other (see Comments) Cortisone Unknown Gramicidin Other (see Comments) Hydrocortisone Other (see Comments) Medical Adhesive Remover Other (see Comments) Rosuvastatin Other (see Comments) Cramping in legs Bacitracin Other (see Comments) and Rash Neomycin Other (see Comments) and Rash Polymyxin B Other (see Comments) and Rash PMH/SgH/FH/SH: Past medical, surgical, family and social histories were reviewed at this visit. Past Medical History Positives Diagnosis Date Anemia Aneurysm (HCC) Anxiety Benign hypertension with CKD (chronic kidney disease) stage III (HCC) CAD (coronary artery disease) Chronic anticoagulation Congestive heart failure (CHF) (HCC) Diastolic heart failure (HCC) Graves' disease H/O mechanical aortic valve replacement Hearing deficit History of cataract extraction LBBB (left bundle branch block) Low hemoglobin and low hematocrit Memory deficit Myopathy VAZQUEZ (obstructive sleep apnea) Paroxysmal atrial flutter (HCC) Vitamin D deficiency Past Surgical History: Procedure Laterality Date AORTIC VALVE REPLACEMENT CATARACT REMOVAL REPAIR HEART WOUND Family History Problem Relation Age of Onset Heart Disease Mother Diabetes Father Heart Disease Father Cancer Brother prostate Cancer Brother prostate Family Status Relation Name Status Mother Father Sister Alive Sister Alive Sister Brother Brother Child Alive Child Alive Child Alive Child Alive No partnership data on file Social History Socioeconomic History Marital status: Single Tobacco Use Smoking status: Never Smokeless tobacco: Never Vaping Use Vaping status: Never Used Substance and Sexual Activity Alcohol use: Never Drug use: Never Social Determinants of Health Financial Resource Needs: High Risk (08/26/2022) Received from [facility] Overall Financial Resource Strain (CARDIA) Difficulty of Paying Living Expenses: Hard Food Insecurity Needs: No Food Insecurity (08/26/2022) Received from [facility] Hunger Vital Sign Worried About Running Out of Food in the Last Year: Never true Ran Out of Food in the Last Year: Never true Transportation Needs: No Transportation Needs (08/26/2022) Received from [facility] PRAPARE - Transportation In the past 12 months, has lack of transportation kept you from medical appointments or from getting medications?: No In the past 12 months, has lack of transportation kept you from meetings, work, or from getting things needed for daily living?: No Physical Activity: Insufficiently Active (08/26/2022) Received from [facility] Exercise Vital Sign Days of Exercise per Week: 1 day Minutes of Exercise per Session: 10 min Stress: Stress Concern Present (08/26/2022) Received from [facility] [place] of Occupational Health - Occupational Stress Questionnaire Feeling of Stress : To some extent Social Integration: Moderately Isolated (08/26/2022) Received from [facility] Social Connection and Isolation Panel [NHANES] Frequency of Communication with Friends and Family: Three times a week Frequency of Social Gatherings with Friends and Family: Three times a week Attends Hoahaoism Services: More than 4 times per year Active Member of Clubs or Organizations: No Attends Club or Organization Meetings: Never Marital Status: Intimate Partner Violence: Not At Risk (08/26/2022) Received from [facility] Humiliation, Afraid, Rape, and Kick questionnaire Fear of Current or Ex-Partner: No Emotionally Abused: No Physically Abused: No Sexually Abused: No Oncology History: Oncology History No history exists. Cancer Staging: Cancer Staging No matching staging information was found for the patient. Cumulative dose Purpose/Goal Comments Lifetime Dose Tracking No doses have been documented on this patient for the following tracked chemicals: Doxorubicin, Epirubicin, Idarubicin, Daunorubicin, Mitoxantrone, Bleomycin, Ifosfamide, Methotrexate, Cyclophosphamide, Cisplatin, Carboplatin Current Medications: Outpatient Encounter Medications as of 10/23/2023 Medication Sig Dispense Refill ALPRAZolam (XANAX) 0.5 MG Tablet TAKE 1/2 (ONE-HALF) TABLET BY MOUTH NIGHTLY NEEDED FOR SLEEP B Complex Capsule Take 1 Capsule by mouth daily. Cholecalciferol (D 1000) 1000 UNIT Chewable Tablet Take by mouth. ferrous sulfate 325 (65 Fe) MG Tablet Take 325 mg by mouth. furosemide (LASIX) 20 MG Tablet Take 20 mg by mouth daily. gabapentin (NEURONTIN) 300 MG Capsule Take 1 Capsule by mouth 3 times daily. methIMAzole (TAPAZOLE) 5 MG Tablet Take 5 mg by mouth daily. metoprolol Succinate (TOPROL-XL) 25 MG TABLET SR 24 HR Take 12.5 mg by mouth. omeprazole (PriLOSEC) 40 MG CAPSULE DELAYED RELEASE Take 40 mg by mouth. potassium chloride CR (KLORCON) 10 MEQ Tablet Controlled Release Take 1 Tablet by mouth daily. Semaglutide (OZEMPIC, 1 MG/DOSE, SC) 0.5 mg by Subcutaneous route. simvastatin (ZOCOR) 10 MG Tablet Take 10 mg by mouth. venlafaxine (EFFEXOR-XR) 150 MG CAPSULE SR 24 HR Take 1 Capsule by mouth daily. warfarin (COUMADIN) 6 MG Tablet Take 6 mg by mouth. No facility-administered encounter medications on file as of 10/23/2023. Labs: No visits with results within 7 Day(s) from this visit. Latest known visit with results is: No results found for any previous visit. documented in this encounter Plan of Treatment Not on file documented as of this encounter Results * [facility] ADVANCED NGS MYELOID PANEL (10/23/2023 2:55 PM CDT) Pathologist [facility] ADVANCED NGS MYELOID PANEL, [place] [id number] [place] [facility] RETURN [facility]ICE [facility] Comment: [facility] Advanced NGS Myeloid Panel Final Report - [...] following interrogated loci: ??Not Applicable INTERPRETATION SUMMARY, [place] [id number] SEE BELOW [facility] Comment: INTERPRETATION SUMMARY: - ??This was a [...] is required to interpret these ??findings. [place], [place] [id number] SEE BELOW [facility] Comment: METHODS: ??Tissue microdissection and DNA [...] ??(CRISTOPHER), used after sequencing on an Illumina Coro Healthq instrument ([place], [place]) with paired end, 151 base pair reads to collapse PCR ??duplicates and enable accurate counting of variant allelic ??frequencies. A minimum number of 100 unique reads (after removal of ??PCR duplicates) to detect a mutation is required. An automated ??process that takes into account statistical confidence of base ??calling and alignment and mapping quality identifies variants ??(Sure2Sign Recruiting Analysis Software version 6.2.7, Released 03 Aug 2019). ??Following mapping of the read data to the human genome (reference ??build GRCh37/hg19), single nucleotide variants (SNVs), and insertion ??deletion events (Indels) with an allele frequency (AF) greater than ??2% are detected utilizing Gilliam Analysis bioinformatic analytical ??pipeline with the exception of [...] capillary electrophoresis ??using an RICHARD Genetic Analyzer ([place], [place], [place]) and ??data was analyzed with [employer]. The FLT3-ITD mutation ??status is determined by [...] Recommendation of the Association for ??Molecular Pathology, [place] Society of Clinical Oncology, and ??College of Italian Pathologists. The Journal of molecular ??diagnostics: JMD. 2017 Mar;19(1):4-23. doi: ??10.1016/j.jmoldx.2016.10.002. PubMed Central PMCID: [id number]. ??PubMed PMID: 00657471)). ??OnkoSightAdvanced was developed and its performance characteristics ??were determined by [employer], a division of [employer]. ??This test has not been cleared or [...] comes from numerous sources, is ??subject to frame changer time in response to future scientific and ??medical findings and correlations. [employer]. makes ??no representation or warranty of any kind regarding the accuracy of ??information provided or contained in these manuscripts, references ??or other sources of information. If any of the information provided ??by or contained in the referenced material is later deemed to be ??inaccurate, this may impact the accuracy of this report and ??interpretation of the findings. [employer]. is not ??obligated to notify you of [...] This assay ??has been approved by the [facility] based on initial validation; ??orthogonal testing for full validation is currently ongoing. Please ??contact the laboratory for more information if update is requested. [place], [place] [id number] SEE BELOW CANCER RETURN TO SERVICE INSPECTOR OF [facility] Comment: REFERENCES: ??1. Marian MM, Soni M, Roya EJ, Devin S, Tj NI, Cesar S, ?Macy AM, Efrain CL, Marely DJ, Nicolás A, Markos ?[place]. Standards and Guidelines for the Interpretation and Reporting ?of Sequence Variants in Cancer: A Joint Consensus Recommendation ?of the Association for Molecular Pathology, [place] Society of ?Clinical Oncology, and College of [place] Pathologists. The ?Journal of molecular diagnostics : JMD. 2017 Mar;19(1):4-23. doi: ?10.1016/j.jmoldx.2016.10.002. PubMed PMID: 97469934. PubMed ?Central PMCID: BCS0458394. ??2. Genome Aggregation Database (gnomAD), [place], [place] (URL: ?https://gnomad.broadinstitute.org) [October,] ??3. SWR353 Local [employer] Software Release Notes V2.1.0; June 24, 2019. h ?ttps://support.Fe[employer]o/content/dam/[employer]-support/documents ?/documentation/software_documentation/trusight/jloaunny-ucciugxz-7 ?00/1000000114054_00_TSO500_v2_1_Customer_Release_Notes.pdf. ??4. Gilmer Armstrong, Rafiq M, Shabbir R, Monica W, Yuri Mcghee, Working Group of ?the [place] College of Medical Genetics and Genomics (ACMG) ?Laboratory Telecommunications Technician Committee. ACMG technical standards ?and guidelines for genetic testing for inherited colorectal cancer ?(Duggan syndrome, familial adenomatous polyposis, and ?MYH-associated polyposis). Genetics in medicine : official journal ?of the [place] College of Medical Genetics. 2014 ?Mar;16(1):101-16. Epub 2012Feb 10. doi: 10.1038/gim.2013.166. ?PubMed PMID: 85988943. ??5. Daniele ZR, Valerio CF, Joshua D, Flores L, Ali SM, Evaristo R, ?Girma A, Sampson B, Ann A, Che J, Mcdonald F, He Y, Sun ?J, Vaibhav U, Contreras M, Funmilayo DS, Eric S, Almaz J, Ricardo MAZA, Paulo ?JS, Itzel L, Jason VA, Delores PJ, [facility]. Analysis of ?100,000 human cancer genomes reveals the landscape of tumor ?mutational burden. Genome medicine. 2017 Jun 25;9(1):34. Ep2016 ?Jun 25. doi: 10.1186/p56062-892-7481-7. PubMed PMID: 76721554. ?PubMed Central PMCID: DWQ3441112. ??6. Stan JA, Janie CM, Raman EQ, Carmine MT, Gloria ?ES, Josefina TL, Jaspal B, Genaro PS, Shantal N, Mian SJ, ?David CC. Microsatellite instability in prostate cancer by PCR ?or next-generation sequencing. Journal for immunotherapy of ?cancer. 2018 Apr 17;6(1):29. Epub 2017Jun 23. doi: ?10.1186/g91416-385-5660-z. PubMed PMID: 93838889. PubMed Central ?PMCID: [id number]. ??7. Erica Mcghee, Daljit Boyd, Ysabel S, Ralf M, Kathie K, Mariano J, ?Mendy B, Trina G. Molecular Diagnostics of Gliomas Using ?Next Generation Sequencing of a Glioma-Tailored Gene Panel. Brain ?pathology ([place], [facility]). 2017 May;27(2):146-159. Epub 2015 ?Jun 25. doi: 10.1111/bpa.68167. PubMed PMID: 18512524. ??8. Liban Franks, Alli LM, Marian X, Darron WK, Liban W. IDH1/2 mutations ?target a messer hallmark of cancer by deregulating cellular ?metabolism in glioma. Neuro-oncology. 2013 Nov;15(9):1114-26. Epub ?2012Sep 26. doi: 10.1093/neuonc/zmh359. PubMed PMID: 86621197. ?PubMed Central PMCID: VWY4686927. ??9. Markos MN, Jonathan AI, Ally MA, Cesar S, Tay S, Nasir RL, ?Itzel FS, Ulises J, Gallo NM, Shiloh IF, Kory YE, ?Maranda Franks. Targeted next-generation sequencing panel (GlioSeq) ?provides comprehensive genetic profiling of central nervous system ?tumors. Neuro-oncology. 2016 May;18(3):379-87. Epub 2014Feb 22. ?doi: 10.1093/neuonc/kng629. PubMed PMID: 41625905. PubMed Central ?PMCID: [id number]. ??10. Dilan PJ, Meghna A, Bill HJ, Duncavage EJ. A wide spectrum ?of EGFR mutations in glioblastoma is detected by a single clinical ?oncology targeted next-generation sequencing panel. Experimental ?and molecular pathology. 2015 Payam;98(3):568-73. Epub 2015 Jun 28. ?doi: 10.1016/j.yexmp.2015.04.006. PubMed PMID: 44781680. PubMed ?Central PMCID: [id number]. REPORT TAN TROTTER [id number] SEE BELOW CANCER RETURN TO SERVICE [facility] Comment: Jason Jarrett M.D., Chiropractic Doctor Electronically signed by Arti De Leon, PhD, [facility] [employer] is a division of [employer] [facility] [place] [address] Created ThuOct 29 15:28:16 EDT 2023 10/23/2023 2:55 PM CDT Narrative CANCER RETURN TO SERVICE [facility] - 10/30/2023 3:33 PM CDT Testing performed at: [employer]. [facility] [place] [address], Chiropractic Doctor: ??Dr. Jason Jarrett M.D.; [facility] Accn#:[id number] Release to patient->Immediate Blade Phillips MD LAB SEND OUTS Final Res ult CANCER RETURN TO [facility] [address] [place] [address], * (ABNORMAL) RETICULOCYTE COUNT (RETIC) (10/23/2023 2:07 PM CDT) Reticulocyte count 2.15(H) 0.50 - 1.70 % CANCER RETURN TO [facility] RET-He 31.30 28.20 - 36.60 pg CANCER RETURN TO [facility] Comment: RET-He is a direct assessment of incorporation of iron into erythrocyte hemoglobin. It provides an indirect measure of the iron available for new erythropoiesis over past 2-4 days. Blood 10/23/2023 2:07 PM CDT [facility] - 10/23/2023 2:23 PM CDT Release to patient->Immediate Blade Phillips MD HEMATOLOGY ORDERABLES Fin al Result Performing Organization Address City/[facility] Co de Phone Number CANCER RETURN TO [facility] [place] [address], * (ABNORMAL) HAPTOGLOBIN (10/23/2023 2:07 PM CDT) HAPTO <30(L) 44 - 215 mg/dL CANCER RET[facility] Blood 10/23/2023 2:07 PM CDT [facility] CANCER RETURN [facility] - 10/26/2023 2:07 PM CDT Release to patient->Immediate Blade Phillips MD CHEMISTRY ORDERABLES Christen l Result Performing Organization Address [facility] Co de Phone Number CANCER RETURN TO [facility]ICE [facility] [place] [address], [place] [phone] * DIRECT ANTIGLOBULIN TEST (VAN) (10/23/2023 2:07 PM CDT) BRADY', DIRECT NEGATIVE NEGATIVE CANCER RETURN [facility] Blood 10/23/2023 2:07 PM CDT [facility] - 10/26/2023 7:35 AM CDT TESTING PERFORMED AT: [] [facility] [address] [place] [address], [place], [address], PHONE: [phone], BLACK BELT: ИРИНА LIU, PHD Release to patient->Immediate Blade Phillips MD BLOOD BANK ORDERABLES Fin al Result CANCER RETURN TO [facility] [place] [address] [place] [address], * FERRITIN (10/23/2023 2:07 PM CDT) Ferritin 22 11 - 307 ng/mL CANCER RETURN TO SERVICE [facility] Blood 10/23/2023 2:07 PM CDT Narrative CANCER RETURN TO SERVICE INS[facility] - 10/26/2023 2:51 PM CDT Release to patient->Immediate Blade Phillips MD CHEMISTRY ORDERABLES Christen l Result Performing Organization Address City/[facility]/ZIP Co de Phone Number CANCER RETURN TO SERVICE [facility] [place] [address] [place] [address], * (ABNORMAL) IRON W/ IRON BINDING CAPACITY [place] (10/23/2023 2:07 PM CDT) IRON 61 50 - 212 ug/dL CANCER RETURN TO SERVICE INS[facility] UIBC 271 155 - 355 ug/dL CANCER RETURN TO SERVICE INSPECTOR [facility] TIBC 332 261 - 478 ug/dl CANCER RETURN TO SERVICE INSPECTOR [facility] % Saturation 18(L) 20 - 50 % CANCER RETURN TO SERVICE INSPECTOR [facility] Blood 10/23/2023 2:07 PM CDT Narrative CANCER RETURN TO SERVICE INSPECTOR [facility] - 10/23/2023 3:10 PM CDT Release to patient->Immediate Blade Phillips MD LAB SEND OUTS Final Res ult Performing Organization Address City/[facility]/ZIP Co de Phone Number CANCER RETURN TO SERVICE INSPECTOR [facility] [place] [address] [place] [address], [place] [phone] * FOLIC ACID (FOLATE) (10/23/2023 2:07 PM CDT) Folate >20.00 >=5.90 ng/mL CANCER RETURN TO SERVICE INSPECTOR [facility] Blood 10/23/2023 2:07 PM CDT Narrative [facility] - 10/26/2023 2:51 PM CDT Release to patient->Immediate IS THE PATIENT REQUIRED TO BE FASTING FOR 12 HOURS?->No Blade Phillips MD CHEMISTRY ORDERABLES Christen l Result Performing Organization Address City/[facility]/ZIP Co de Phone Number CANCER RETURN TO SERVICE INSPECTOR [facility] [place] [address], [place] [phone] * VITAMIN B12 (10/23/2023 2:07 PM CDT) Vitamin B12 839 180 - 914 pg/mL [facility]ER [facility] Blood 10/23/2023 2:07 PM CDT Narrative [facility] - 10/26/2023 2:52 PM CDT Release to patient->Immediate Blade Phillips MD CHEMISTRY ORDERABLES Christen l Result Performing Organization Address [facility] Co de Phone Number CANCER RETURN TO SERVICE INSPECTOR [facility] [place] [address], [place] [phone] * IMMUNOGLOBULIN IGA, IGG & IGM QUANT (10/23/2023 2:07 PM CDT) IGG 823 635 - 1,741 mg/dL [facility]CER [facility] IGA 261 66 - 433 mg/dL [facility]CER [facility] IGM 86 45 - 281 mg/dL CANCER RETURN TO SERVICE INSPECTOR [facility] Blood 10/23/2023 2:07 PM CDT Narrative [facility] - 10/26/2023 2:07 PM CDT Release to patient->Immediate Blade Phillips MD CHEMISTRY ORDERABLES Christen l Result CANCER RETURN TO SERVICE INSPECTOR [facility] [place] [address] [place] [address], * IMMUNOFIXATION, SERUM OH (10/23/2023 2:07 PM CDT) IMMUNOFIXATION RESULT, SERUM COMMENT CANCER RETURN TO SERVICE INSPECTOR [facility] Comment:NO MONOCLONALITY DET ECTED. 10/23/2023 2:07 PM CDT Narrative CANCER RETURN TO SERVICE INSPECTOR [facility] - 10/26/2023 11:07 AM CDT TESTING PERFORMED AT: [CB] [facility], [address] [place] [address], [place], [address], PHONE: [phone], BLACK BELT: ИРИНА LIU, PHD Release to patient->Immediate Blade Phillips MD LAB SEND OUTS Final Res ult CANCER RETURN TO SERVICE INSPECTOR [facility] [address] [place] [address], * ELECTROPHORESIS W/ TOTAL PROTEIN SERUM (10/23/2023 2:07 PM CDT) PROTEIN, TOTAL, SERUM 6.3 6.0 - 8.5 G/DL CANCER RETURN TO SERVICE INSPECTOR [facility] ALBUMIN 3.1 2.9 - 4.4 G/DL CANCER RETURN TO SERVICE INSPECTOR [facility] [id number] 0.4 0.0 - 0.4 G/DL CANCER RETURN TO SERVICE INSPECTOR [facility] [id number] 0.7 0.4 - 1.0 G/DL CANCER RETURN TO SERVICE INSPECTOR [facility] BETA GLOBULIN 1.2 0.7 - 1.3 G/DL CANCER RETURN TO SERVICE INSPECTOR [facility] GAMMA GLOBULIN 0.9 0.4 - 1.8 G/DL CANCER RETURN TO SERVICE INSPECTOR [facility] M-SPIKE NOT OBSERVED NOT OBSERVED G/DL CANCER RETURN TO SERVICE INSPECTOR [facility] GLOBULIN, TOTAL 3.2 2.2 - 3.9 G/DL CANCER RETURN TO SERVICE INSPECTOR [facility] A/G RATIO 1.0 0.7 - 1.7 CANCER [facility]THONY [facility] SPECIALISTS [facility] PLEASE NOTE: COMMENT CANCER RETURN TO SERVICE INSPECTOR [facility] Comment: PROTEIN ELECTROPHORESIS SCAN WILL FOLLOW VIA COMPUTER, MAIL, OR DEVELOPMENT VICE PRESIDENT DELIVERY. PDF . CANCER ANTHONY TER [facility] Blood 10/23/2023 2:07 PM CDT Narrative [facility] RETURN TO [facility] - 10/26/2023 11:07 AM CDT TESTING PERFORMED AT: [] [facility], [address] [place] [address], [place], [address], PHONE: [phone], BLACK BELT: ИРИНА LIU, PHD Release to patient->Immediate Blade Phillips MD CHEMISTRY ORDERABLES Christen l Result Performing Organization Address City/[facility]/ZIP Co de Phone Number [facility] RETURN TO SERVICE INSPECTOR [facility] [place] [address], [place] [phone] * LACTATE DEHYDROGENASE (LD) (10/23/2023 2:07 PM CDT) LDH 217 140 - 271 U/L [facility] RETURN TO [facility] Blood 10/23/2023 2:07 PM CDT Narrative [facility] - 10/23/2023 3:10 PM CDT Release to patient->Immediate Blade Phillips MD CHEMISTRY ORDERABLES Christen l Result Performing Organization Address City/[facility]/ZIP Co de Phone Number [facility] RETURN TO [facility] [place] [address], [place] [phone] * (ABNORMAL) CMP (COMPREHENSIVE METABOLIC PANEL) (10/23/2023 2:07 PM CDT) Glucose 142(H) 70 - 105 mg/dL [facility] RETURN TO [facility] Blood Urea Nitrogen 17 7 - 25 mg/dL [facility] Creatinine 1.2 0.6 - 1.2 mg/dL [facility] Sodium 139 136 - 145 mEq/L [facility] Potassium 4.2 3.5 - 5.1 mEq/L [facility] RETURN TO [facility] Chloride 99 98 - 107 mEq/L [facility] Bicarbonate 34(H) 21 - 31 mEq/L [facility] RETURN TO [facility] Total Bilirubin 0.3 0.3 - 1.0 mg/dL [facility] RETURN TO [facility] Alk. Phosphatase 77 34 - 104 U/L [facility] RETURN TO [facility] Aspartate Aminotransferase 18 13 - 39 U/L [facility] Alanine Aminotransferase 12 7 - 52 U/L [facility] Total Protein 6.2(L) 6.4 - 8.9 g/dL [facility] RETURN TO [facility] Albumin 3.7 3.5 - 5.7 g/dL [facility] Calcium 11.0(H) 8.6 - 10.3 mg/dL [facility] Anion Gap 10.2 7.0 - 15.0 mEq/L [facility] Globulin 2.5 2.0 - 3.5 g/dL [facility] EGFR 46(L) >60 ml/min/1. 73m2 [facility] RETURN TO [facility] Comment: This eGFR is calculated using 2020 CKD-EPI Creatinine equation without race modifier based on the NKF-ASN task force recommendations Blood 10/23/2023 2:07 PM CDT Narrative [facility] RETURN TO [facility] - 10/23/2023 3:10 PM CDT Release to patient->Immediate IS THE PATIENT REQUIRED TO BE FASTING FOR 8 HOURS?->No Blade Phillips MD CHEMISTRY ORDERABLES Christen farooq Result CANCER RETURN TO SERVICE INSPECTOR [facility] [place] [address], documented in this encounter Visit Diagnoses Diagnosis Macrocytic anemia- Primary Unspecified deficiency anemia Iron deficiency Other disorders of iron metabolism Low serum haptoglobin H/O mechanical aortic valve replacement Heart valve replaced by other means Macrocytic anemia Unspecified deficiency anemia Iron deficiency Other disorders of iron metabolism Low serum haptoglobin H/O mechanical aortic valve replacement Heart valve replaced by other means documented in this encounter Care Teams Color Matcher Relationship Specialty Start Date End Date Sanjeev Webster DO [address] [place] [id number] PCP - General Family Medicine 09/14/23 Blade Phillips MD [address] [place] [phone] Oncology 09/14/23 documented as of this encounter
--- OUTSIDE RECORDS SUMMARY | 2024-03-15 01:53 | XMS_ITS | Clinical Summary ---
Author Organization [facility] Address [address] [place] [address] Phone Care Team Providers Care Water Aerobics Instructor Name Role Phone Sanjeev Webster DO Primary Care Provider + Blade Phillips MD Unavailable [phone] Allergies Active Allergy Reactions Criticality Noted Date Comments Atorvastatin Other (see Comments) High 08/12/2021 Leg pain/cramps. Resolved after stopping. Bacitracin Other (see Comments),Rash Low 11/21/2019 Benzalkonium Other (see Comments) 11/21/2019 Cortisone Unknown 08/02/2023 Gramicidin Other (see Comments) 11/21/2019 Hydrocortisone Other (see Comments) 11/21/2019 Medical Adhesive Remover Other (see Comments) 10/23/2023 Neomycin Other (see Comments),Rash Low 11/21/2019 Polymyxin B Other (see Comments),Rash Low 11/21/2019 Rosuvastatin Other (see Comments) 07/10/2022 Cramping in legs Medications methIMAzole (TAPAZOLE) 5 MG Tablet Take 5 mg by mouth daily. 4 Active venlafaxine (EFFEXOR-XR) 150 MG CAPSULE SR 24 HR Take 1 Capsule by mouth daily. 1 Active omeprazole (PriLOSEC) 40 MG CAPSULE DELAYED RELEASE Take 40 mg by mouth. 4 Active furosemide (LASIX) 20 MG Tablet Take 20 mg by mouth daily. 4 Active ferrous sulfate 325 (65 Fe) MG Tablet Take 325 mg by mouth. Active Cholecalciferol (D 1000) 1000 UNIT Chewable Tablet Take by mouth. 1 Active B Complex Capsule Take 1 Capsule by mouth daily. Active Semaglutide (OZEMPIC, 1 MG/DOSE, SC) 0.5 mg by Subcutaneous route. Active simvastatin (ZOCOR) 10 MG Tablet Take 10 mg by mouth. 3 Active potassium chloride CR (KLORCON) 10 MEQ Tablet Controlled Release Take 1 Tablet by mouth daily. 4 Active warfarin (COUMADIN) 6 MG Tablet Take 6 mg by mouth. 1 Active ALPRAZolam (XANAX) 0.5 MG Tablet TAKE 1/2 (ONE-HALF) TABLET BY MOUTH NIGHTLY NEEDED FOR SLEEP 4 Active gabapentin (NEURONTIN) 300 MG Capsule Take 1 Capsule by mouth 3 times daily. 1 Active metoprolol Succinate (TOPROL-XL) 25 MG TABLET SR 24 HR Take 25 mg by mouth daily. 4 Active HYDROcodone-francesca taminophen (NORCO) 5-325 MG Tablet Take 1-2 Tablets by mouth. 4 Active Prolia 60 MG/ML Solution Prefilled Syringe 4 Active cinacalcet (SENSIPAR) 30 MG Tablet Take 15 mg by mouth daily. 4 Active Contour Next Test Strip USE 1 STRIP TO CHECK GLUCOSE ONCE DAILY 4 Active Microlet Lancets Misc USE 1 TO CHECK GLUCOSE ONCE DAILY NEEDED 4 Active Active Problems No known active problems Family History Medical History Relation Name Comments Cancer Brother 1 prostate Cancer Brother 2 prostate Diabetes Father Heart Disease Father Heart Disease Mother Relation Name Status Comments Brother 1 Brother 2 Child 1 Alive Child 2 Alive Child 3 Alive Child 4 Alive Father Mother Sister 1 Alive Sister 2 Alive Sister 3 Social History Tobacco Use Types Packs/Day Years Used Date Smoking Tobacco: Never Smokeless Tobacco: Never Tobacco Cessation:Counseling Given: Not Answered Alcohol Use Standard Drinks/Week Comments Never 0 (1 standard drink = 0.6 oz pur e alcohol) Comments Unknown Sex and Gender Information Value Date Recorded Sex Assigned at Not on file Legal Sex Female 1:54 PM CDT Gender Identity Not on file Sexual Orientation Not on file Last Filed Vital Signs Vital Sign Reading Time Taken Comments Blood Pressure 110/60 11/20/2023 1:27 PM CDT Pulse 68 11/20/2023 1:27 PM CDT Temperature 36.5 ??C (97.7 ??F) 11/20/2023 1:27 PM CD T Respiratory Rate 18 11/20/2023 1:27 PM CDT Oxygen Saturation 98% 11/20/2023 1:27 PM CDT Inhaled Oxygen Concentration - - Weight 83.3 kg (183 lb 9.6 oz) 11/20/2023 1:27 P M CDT Height 160 cm (5' 3 ) 11/20/2023 1:27 PM CDT Body Mass Index 32.52 11/20/2023 1:27 PM CDT Plan of Treatment Health Maintenance Due Date Last Done Comments Hepatitis C Virus (HCV) Screening 1945 Respiratory Syncytial Virus (RSV) Immunization (Adult) (1 - 1-dose 75+ series) 05/23/2019 Zoster Immunization (3 of 3) 01/06/2023 11/11/2022, 12/25/2015 Influenza Immunization (#1) 2023 11/0 08/2022, 12/23/2021, 12/13/2020, Additional history exists SARS-COV-2 Immunization ( season) 2023 08/29/2021, 02/23/2021, 06/01/2020, Additional history exists DEXA Bone Density 02/24/2025 02/24/2023, 07/15/2021 Pneumococcal Immunization (50+ years) Completed 03/30/2017, 06/15/2015 TdaP Immunization Completed 09/05/2020, 06/05/2016 Hepatitis B Immunization Aged Out No longer eligible based on patient's age to complete this topic Meningococcal Immunization (ACWY) Aged Out No longer eligible based on patient's age to complete this topic Rotavirus Immunization Aged Out No lo nger eligible based on patient's age to complete this topic Insurance MEDICARE C [employer] Care Teams Water Aerobics Instructor Relationship Specialty Start Date End Date Sanjeev Webster DO [address] [place] [id number] PCP - General Family Medicine 09/14/23 Blade Phillips MD [address] [place] [phone] Oncology 09/14/23
--- OUTSIDE RECORDS SUMMARY | 2024-03-15 01:53 | XMS_ITS | Encounter Summary ---
Author Organization [employer] Care Team Providers Care Steam Engineer Name Role Phone Sanjeev Webster DO Primary Care Provider + Blade Phillips MD Unavailable [phone] Encounter Details Date Type Department Care Team (Latest Contact Info) Description 10/23/2023 Travel Social History Tobacco Use Types Packs/Day [...] on file documented as of this encounter Visit Diagnoses Not on filedocumented in this encounter Care Teams Steam Engineer Relationship Specialty Start Date End Date Sanjeev Webster DO [address] [place] [address] PCP - General Family Medicine 09/14/23 Blade Phillips MD [address] [place] [phone] Oncology 09/14/23 documented as of this encounter
--- OUTSIDE RECORDS SUMMARY | 2024-03-15 01:53 | XMS_ITS | Encounter Summary ---
Author Organization [facility] Address [address] [place] [address] Phone Care Team Providers Care Legal Nurse Consultant Name Role Phone Sanjeev Webster Primary Care Provider + Blade Phillips MD Unavailable [phone] Reason for Visit * Reason Comments Follow-up Encounter Details Date Type Department Care Team (Late st Contact Info) Description 11/20/2023 1:30 PM CDT [facility] Visit [facility] [address] [address] Blade Phillips MD [address] [address] Macrocytic anemia (Primary Dx); Iron deficiency; Low [...] Mass Index 32.52 11/20/2023 1:27 PM CDT documented in this encounter Functional Status * Question Answer Date of Assessment Author Little interest or pleasure in doing things Not at all 11/20/2023 1:23 PM CDT Myriam Thomas CMA Feeling down, depressed, or hopeless Not at all 11/20/2023 1:23 PM CDT Myriam Thomas CMA * Over the past 2 weeks, how often have you been bothered by any of the following problems? Question Answer Date of Assessment Author Patient Health Questionnaire -2 Score 0 11/20/2023 1:23 PM CDT Myriam Thomas CMA documented as of this encounter Progress Notes * Blade Phillips MD - 11/20/2023 1:30 PM CDT Images from the original note were not included. Patient: Radha Huynh Age: 78 y.o. : 1945 Encounter Dept: [facility] Encounter Date: 11/20/2023 Care Team: Current Providers PCP: Sanjeev Webster DO Care Team Provider: Blade Phillips MD Encounter Provider: Blade Phillips MD Referring Provider: not found N/A: Blade Phillips MD HISTORY OF PRESENT ILLNESS: Ms. Radha Huynh is a 78-year-old female who presents today for followup. The patient overall has been doing well clinically since the last visit. She has had no shortness of breath or chest pains. She has had no hematochezia or melena. DIAGNOSIS: 1. Macrocytic anemia. 2. History of iron deficiency. 3. 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 4. Mechanical aortic valve replacement. PAST TREATMENT: 1. Blood work on 10/19/23 by primary care physician revealed a white count 5.17, hemoglobin 10.1, hematocrit 33.9, MCV 103.4, platelet count 255. Haptoglobin was undetectable. Reticulocyte count 2.5%. LDH 285. Iron 70, iron saturation 24%, ferritin 40. Vitamin B12 988, folic acid greater than 20. 2. Blood work that was done on 10/23/23 showed OnkoSight myeloid panel negative, kappa/lambda ratiowithin normal limits, serum protein electrophoresis with no monoclonal protein, serum immunofixation was negative, vitamin B12 was 839, folic acid greater than 20. Iron studies showed ferritin of 22,total iron 61, iron saturation 18%. Haptoglobin was low at less than 30. CURRENT TREATMENT: Observation of blood counts and iron stores. TREATMENT GUIDELINES: Not applicable. PROGNOSIS: Not applicable. [...] Radha Huynh is a 78-year-old female who presents today for followup. She continues to have mild macrocytic anemia. Her iron stores are slightly borderline. I will continue tomonitor her blood work. The patient will return tentatively in three months with repeat blood work.If she continues to remain iron deficient I will consider parenteral iron at that time. 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 The patient understands and agrees with the above treatment plan. Thank you again for allowing us to participate in the care of this patient. TIME SPENT: REVIEW OF SYSTEMS: A 12-point review of systems was performed, pertinent and positive as mentioned above. All other systems remain negative. PHYSICAL EXAMINATION: GENERAL: The patient is a [...] Reviewed and in the chart. Blade Phillips MD/edb Vitals: Vitals: 11/20/23 1327 BP: 110/60 BP Location: Left Arm BP Position: Sitting BP Cuff Size: Regular Pulse: 68 Resp: 18 Temp: 97.7 ??F (36.5 ??C) TempSrc: Temporal SpO2: 98% Weight: 183 lb 9.6 oz (83.3 kg) Height: 5' 3 (1.6 m) Body surface area is 1.92 meters squared. Body mass index is 32.52 kg/m??. Pain Score: 8 Pain Loc: Back Allergies: Allergies Allergen Reactions Atorvastatin Other (see [...] Resource Needs: High Risk (08/26/2022) Received from [facility] Overall Financial Resource Strain (CARDIA) Difficulty of Paying Living Expenses: Hard Food Insecurity Needs: No Food Insecurity (08/26/2022) Received from [facility] Hunger Vital Sign Worried About Running Out of Food in the Last Year: Never true Ran Out of Food in the Last Year: Never true Transportation Needs: No Transportation Needs (08/26/2022) Received from [facility] PRAPARE - Transportation In the past 12 months, has lack of transportation kept you from medical appointments or from getting medications?: No In the past 12 months, has lack of transportation kept you from meetings, work, or from getting things needed for daily living?: No Physical Activity: Insufficiently Active (08/26/2022) Received from [facility] Exercise Vital Sign Days of Exercise per Week: 1 day Minutes of Exercise per Session: 10 min Stress: Stress Concern Present (08/26/2022) Received from [facility] [employer] [place] of Occupational Health - Occupational Stress Questionnaire Feeling of Stress : To some extent Social Integration: Moderately Isolated (08/26/2022) Received from [facility] Social Connection and Isolation Panel [NHANES] Frequency of Communication with Friends and Family: Three times a week Frequency of Social Gatherings with Friends and Family: Three times a week Attends Nondenominational Services: More than 4 times per year Active Member of Clubs or Organizations: No Attends Club or Organization Meetings: Never Marital Status: Intimate Partner Violence: Not At Risk (08/26/2022) Received from [facility] Humiliation, Afraid, Rape, and Kick questionnaire Fear [...] Current Medications: Outpatient Encounter Medications as of 11/20/2023 Medication Sig Dispense Refill ALPRAZolam (XANAX) 0.5 MG Tablet TAKE 1/2 (ONE-HALF) TABLET BY MOUTH NIGHTLY NEEDED FOR SLEEP B Complex Capsule Take 1 Capsule by mouth daily. Cholecalciferol (D 1000) 1000 UNIT Chewable Tablet Take by mouth. cinacalcet (SENSIPAR) 30 MG Tablet Take 15 mg by mouth daily. Contour Next Test Strip USE 1 STRIP TO CHECK GLUCOSE ONCE DAILY ferrous sulfate 325 (65 Fe) MG Tablet Take 325 mg by mouth. furosemide (LASIX) 20 MG Tablet Take 20 mg by mouth daily. gabapentin (NEURONTIN) 300 MG Capsule Take 1 Capsule by mouth 3 times daily. HYDROcodone-acetaminophen (NORCO) 5-325 MG Tablet Take 1-2 Tablets by mouth. methIMAzole (TAPAZOLE) 5 MG Tablet Take 5 mg by mouth daily. metoprolol Succinate (TOPROL-XL) 25 MG TABLET SR 24 HR Take 25 mg by mouth daily. [DISCONTINUED] metoprolol Succinate (TOPROL-XL) 25 MG TABLET SR 24 HR Take 12.5 mg by mouth. Microlet Lancets Misc USE 1 TO CHECK GLUCOSE ONCE DAILY NEEDED omeprazole (PriLOSEC) 40 MG CAPSULE DELAYED RELEASE Take 40 mg by mouth. potassium chloride CR (KLORCON) 10 MEQ Tablet Controlled Release Take 1 Tablet by mouth daily. Prolia 60 MG/ML Solution Prefilled Syringe Semaglutide (OZEMPIC, 1 MG/DOSE, SC) 0.5 mg by Subcutaneous route. simvastatin (ZOCOR) 10 MG Tablet Take 10 mg by mouth. venlafaxine (EFFEXOR-XR) 150 MG CAPSULE SR 24 HR Take 1 Capsule by mouth daily. warfarin (COUMADIN) 6 MG Tablet Take 6 mg by mouth. No facility-administered encounter medications on file as of 11/20/2023. Labs: No visits with results within 7 Day(s) from this visit. Latest known visit with results is: Lab on 10/23/2023 Component Date Value Ref Range Status Reticulocyte count 10/23/2023 2.15 (H) 0.50 - 1.70 % Final RET-He 10/23/2023 31.30 28.20 - 36.60 pg Final Comment: RET-He is a direct assessment of incorporation of iron into erythrocyte hemoglobin. It provides an indirect measure of the iron available for new erythropoiesis over past 2-4 days. DiJiPOP NGS MYELOID JULIEN* 10/23/2023 NORMAL Final Comment: Response Biomedical Advanced NGS Myeloid Panel Final Report - RESULT SUMMARY: NORMAL - DETECTED GENOMIC ALTERATIONS: No Mutations Identified - TUMOR TYPE: Not Provided - CLINICAL INFORMATION: Provided ICD-10 code: D53.9 (Nutritional anemia, unspecified). - PERTINENT NEGATIVE RESULTS: The following genes are NEGATIVE for clinically relevant mutations. Mutational hotspots and surrounding exonic regions were interrogated for DNA level point mutations and indels (fusions not assayed). ABL1, ANKRD26, ASXL1, ATRX, BCOR, BCORL1, BRAF, CALR, CBL, CCND2, CDKN2A, CEBPA, CSF3R, CUX1, DDX41, DNMT3A, ETNK1, ETV6, EZH2, FBXW7, FLT3, GATA2, HRAS, IDH1, IDH2, JAK2, KDM6A, KIT, KMT2A, KRAS, MAP2K1, MPL, MYD88, NF1, NPM1, NRAS, PDGFRA, PHF6, PTEN, PTPN11, RUNX1, SETBP1, SF3B1, SRSF2, STAG2, TET2, TP53, U2AF1, WT1, ZRSR2 - MUTATIONAL HOTSPOTS: The following recurrently mutated codons demonstrated adequate sequencing coverage depths and show wild type sequences on ly. Gene: ABL1 Codons: 235, 244, 250, 252, 253, 255, 299, 311, 315, 317, 351, 359, 396 Gene: ASXL1 Codons: 635, 646 Gene: BCOR Codons: 1459 Gene: BRAF Codons: 581, 594, 597, 600, 601 Gene: CALR Codons: 367, 385 Gene: CBL Codons: 420 Gene: CSF3R Codons: 618 Gene: DNMT3A Codons: 882 Gene: EZH2 Codons: 646 Gene: FLT3 Codons: 835 Gene: HRAS Codons: 12, 13, 61 Gene: IDH1 Codons: 132 Gene: IDH2 Codons: 140, 172 Gene: JAK2 Codons: 533, 534, 535, 536, 537, 538, 539, 540, 541, 542, 543, 544, 545, 546, 547, 617 Gene: KIT Codons: 557, 559, 560, 576, 642, 816, 820, 822 Gene: KRAS Codons: 12, 13, 59, 60, 61 Gene: MPL Codons: 515 Gene: MYD88 Codons: 265 Gene: NPM1 Codons: 288 Gene: NRAS Codons: 12, 13, 61 Gene: PTEN Codons: 92, 93, 130, 132, 136, 212, 233 Gene: PTPN11 Codons: 61, 69, 72, 76, 503, 510 Gene: SETBP1 Codons: 868, 870 Gene: SF3B1 Codons: 623, 666, 700, 741 Gene: SRSF2 Codons: 95 Gene: TP53 Codons: 175, 21 3, 245, 248, 273, 282 Gene: U2AF1 Codons: 34, 157 The following recurrently mutated codons demonstrated inadequate sequencing coverage depths (<100x), and the possibility of undersensitive detection cannot be excluded. Not Applicable - TRANSCRIPT ACCESSIONS FOR INTERROGATED GENES: Gene: ABL1 Transcript ID: [id number] Gene: ANKRD26 Transcript ID: [id number] Gene: ASXL1 Transcript ID: [id number] Gene: ATRX Transcript ID: [id number] Gene: BCOR Transcript ID: [id number] Gene: BCORL1 Transcript ID: [id number] Gene: BRAF Transcript ID: [id number] Gene: CALR Transcript ID: [id number] Gene: CBL Transcript ID: [id number] Gene: CCND2 Transcript ID: [id number] Gene: CDKN2A Transcript ID: [id number] Gene: CEBPA Transcript ID: [id number] Gene: CSF3R Transcript ID: [id number] Gene: CUX1 Transcript ID: [id number] Gene: DDX41 Transcript ID: [id number] Gene: DNMT3A Transcript ID: [id number] Gene: ETNK1 Transcript ID: [id number] Gene: ETV6 Transcript ID: [id number] Gene: EZH2 Transcript ID: [id number] Gene: FBXW7 Transcript ID: [id number] Gene: FLT3 Transcript ID: [id number] Gene: GATA2 Transcript ID: [id number] Gene: HRAS Transcript ID: [id number] Gene: IDH1 Transcript ID: [id number] Gene: IDH2 Transcript ID: [id number] Gene: JAK2 Transcript ID: [id number] Gene: KDM6A Transcript ID: [id number] Gene: KIT Transcript ID: [id number] Gene: KMT2A Transcript ID: [id number] Gene: KRAS Transcript ID: [id number] Gene: MAP2K1 Transcript ID: [id number] Gene: MPL Transcript ID: [id number] Gene: MYD88 Transcript ID: [id number] Gene: NF1 Transcript ID: [id number] Gene: NPM1 Transcript ID: [id number] Gene: NRAS Transcript ID: [id number] Gene: PDGFRA Transcript ID: [id number] Gene: PHF6 Transcript ID: [id number] Gene: PTEN Transcript ID: [id number] Gene: PTPN11 Transcript ID: [id number] Gene: RUNX1 Transcript I D: [id number] Gene: SETBP1 Transcript ID: [id number] Gene: SF3B1 Transcript ID: [id number] Gene: SRSF2 Transcript ID: [id number] Gene: STAG2 Transcript ID: [id number] Gene: TET2 Transcript ID: [id number] Gene: TP53 Transcript ID: [id number] Gene: U2AF1 Transcript ID: [id number] Gene: WT1 Transcript ID: [id number] Gene: ZRSR2 Transcript ID: [id number] - COVERAGE DEPTHS: Among the following targeted exons, >50% of coding sequences failed to achieve >100x coverage depths. Analytic sensitivity for potentially relevant genomic alterations may therefore be limited among the following interrogated loci: Not Applicable INTERPRETATION SUMMARY, [place] [id number] 10/23/2023 SEE BELOW Final Comment: INTERPRETATION SUMMARY: - This was a NORMAL sequencing study in which no disease associated mutations or variants of unclear significance were identified in the tested specimen. The absence of mutations should be interpreted in the context of other clinical and pathologic findings. Normal sequencing results may be a consequence of testing a sample with little or no neoplastic cells present. Clinical and pathologic correlation is required to interpret these findings. METHODS, [place] [id number] 10/23/2023 SEE BELOW Final Comment: METHODS: Tissue microdissection and DNA isolation from tumor enriched areas are based on histologic review by an appropriately board certified pathologist; specimens with minimal tumor cellularity may be rejected. Nucleic acid is isolated from the submitted specimen. Anchored Multiplex PCR (AMP) is performed to generate target-enriched next generation sequencing (NGS) libraries. AMP utilizes unidirectional gene-specific primer (GSP) oligonucleotides that enrich for both known and unknown mutations. Each genomic DNA fragment is also tagged with a unique molecular identifier sequence (CRISTOPHER), used after sequencing on an Illumina [employer]q instrument ([place], [place]) with paired end, 151 base pair reads to collapse PCR duplicates and enable accurate counting of variant allelic frequencies. A minimum number of 100 unique reads (after removal of PCR duplicates) to detect a mutation is required. An automated process that takes into account statistical confidence of base calling and alignment and mapping quality identifies variants ([employer] Analysis Software version 6.2.7, Released 03 Aug 2019). Following mapping of the read data to the human genome (reference build [id number]/hg19), single nucleotide variants (SNVs), and insertion deletion events (Indels) with an allele frequency (AF) greater than 2% are detected utilizing [employer] bioinformatic analytical pipeline with the exception of FLT3 (0.8% AF), JAK2 p.V617F (0.8% AF) and MYD88 p.L265P (1% AF). Detection of Insertions larger than 63 bases have not been validated. Detection of Deletions larger than 52 bases have not been validated. Reported variants include known disease associated mutations and unclear variants with little or no literature support. Benign population polymorphisms are not included in the report. For low level FLT3 internal tandem duplication (ITD) and/or FLT3 tyrosine kinase domain (TKD) variant(s) orthogonal po lymerase chain reaction (PCR) testing confirmations, a multiplex PCR is performed followed by digestion with a restriction endonuclease. Products are by capillary electrophoresis using an [employer] Analyzer ([place], [place], [place]) and data was analyzed with [employer]. The FLT3-ITD mutation status is determined by calculating the allele ratio (AR) as the ratio of the area under the curve of mutant to wild type alleles. The FLT3-TKD mutation status is determined by calculating the variant allele frequency (VAF) as a percentage of mutant alleles to mutant and wild type alleles. The limit of detection is 0.07 AR and 5% VAF for FLT3-ITD and FLT3-TKD (D835, I836) variants, respectively. The mutation hotspots of the following genes were interrogated by this test: ABL1, ANKRD26, ASXL1, ATRX, BCOR, BCORL1, BRAF, CALR, CBL, CCND2, CDKN2A, CEBPA, CSF3R, CUX1, DDX41, DNMT3A,ETNK1, ETV6, EZH2, FBXW7, FLT3, GATA2, HRAS, IDH1, IDH2, JAK2 (inclusive of V617F & exon 12), KDM6A, KIT, KMT2A, KRAS, MAP2K1, MPL, MYD88, NF1, NPM1, NRAS, PDGFRA, PHF6, PTEN, PTPN11, RUNX1, SETBP1, SF3B1, SRSF2, STAG2, TET2, TP53, U2AF1, WT1, ZRSR2. Variant Tier categorization is rendered in accordance with the AMP/ASCO/CAP consensus recommendations (see Li et al. Standards and Guidelines for the Interpretation and Reporting of Sequence Variants in Cancer: A Joint Consensus Recommendation of the Association for Molecular Pathology, [place] Society of Clinical Oncology, and College of [place] Pathologists. The Journal of molecular diagnostics: JMD. 2017 Mar;19(1):4-23. doi: 10.1016/j.jmoldx.2016.10.002. PubMed Central PMCID: [id number]. PubMed PMID: (78892545)). OnkoSightAdvanced was developed and its performance characteristics were determined by [employer], a division of [employer]. This test has not been cleared or approved by the US Food and Drug Administration (FDA). Th FDA has determined that such a clearance or approval is not necessary. Pursuant to the requirements of CLIA'88, this laboratory has established and verified the tests accuracy and precision. However, a false positive or false negative result incurred during any phase of the testing cannot be completely excluded. Large insertion/deletion (eg. FLT3-ITD aberrations) may not be detected by this assay due to the limit of sequencing read length and bioinformatics processing. This assay does not detect translocation/gene fusion. This assay does not determine variant causality, or whether a variant is inherited or somatically acquired. These results may be used for clinical or research purposes and therefore should be carefully considered within the context of other clinical and laboratory data. In the absence of an appropriate clinical context, the clinical utility of OnkoSighttesting is not clearly defined. The information contained in this repo rt reflects the current interpretation of the findings as of the date of the report, based on the available scientific information. This information, which comes from numerous sources, is subject to private branch exchange installer time in response to future scientific and medical findings and correlations. [employer]. makes no representation or warranty of any kind regarding the accuracy of information provided or contained in these manuscripts, references or other sources of information. If any of the information provided by or contained in the referenced material is later deemed to be inaccurate, this may impact the accuracy of this report and interpretation of the findings. [employer]. is not obligated to notify you of any impact that additional or modified information, or future scientific or medical research may have on this report. The laboratory is not responsible for reanalysis of the data or updated classification of this repor t or past reportsfindings as the knowledge evolves. A medical provider can request a reassessment of clinical significance of variants and/or re-review of the clinical interpretation of the findings. Additional charges may apply for the updated report. Please contact the laboratory for more information if update is requested. This assay has been approved by the [facility] based on initial validation; orthogonal testing for full validation is currently ongoing. Please contact the laboratory for more information if update is requested. REFERENCES, [place] [id number] 10/23/2023 SEE BELOW Final Comment: REFERENCES: 1. Marian MM, Soni M, Roya EJ, Devin S, Tj NI, Cesar S, Macy AM, Efrain CL, Marely DJ, Nicolás A, Markos MN. Standards and Guidelines for the Interpretation and Reporting of Sequence Variants in Cancer: A Joint Consensus Recommendation of the Association for Molecular Pathology, [place] Society of Clinical Oncology, and College of [place] Pathologists. The Journal of molecular diagnostics : JMD. 2017 Mar;19(1):4-23. doi: 10.1016/j.jmoldx.2016.10.002. PubMed PMID: 86312490. PubMed Central PMCID: [id number]. 2. Genome Aggregation Database (gnomAD), [place], [place] (URL: https://gnomad.Collusiontitute.org) [October,] 3. JBH398 Local [employer] Software Release Notes V2.1.0; June 24, 2019. h ttps://support.[employer]/content/dam/[employer]-support/documents /documentation/software_documentation/trusight/pkopfpeq-wxzxwwgy-9 [email or web address]_[email or web address]_Customer_Release_Notes.pdf. 4. Gilmer Armstrong, Rafiq M, Shabbir R, Monica W, Yuri Mcghee, Working Group of the [place] [employer] and Genomics ([employer]MG) Laboratory Keel Press Operator Committee. ACMG technical standards and guidelines for genetic testing for inherited colorectal cancer (Duggan syndrome, familial adenomatous polyposis, and MYH-associated polyposis). Genetics in medicine : official journal of the [place] College of Medical Genetics. 2013;16(1):101-16. Epub 2012Feb 10. doi: 10.1038/gim.2013.166. PubMed PMID: 50974931. 5. Daniele ZR, Valerio CF, Joshua D, Sandra L, Ali SM, Evaristo R, Girma A, Sampson B, Ann A, Che J, Harry F, Raul Y, Cat J, Vaibhav U, Contreras M, Funmilayo DS, Eric S, Almaz J, Ricardo GA, Paulo JS, Itzel L, Jason VA, Delores PJ, Gary GM. Analysis of 100,000 human cancer genomes reveals the landscape of tumor mutational burden. Genome medicine. 2017 Jun 25;9(1):34. Epub 2016Jun 25. doi: 10.1186/s 64558-613-6984-2. PubMed PMID: 95682891. PubMed Central PMCID: IAA3558803. 6. Stan JA, Janie CM, Raman EQ, Carmine MT, Gloria ES, Josefina TL, Jaspal B, Genaro PS, Shantal N, Mian SJ, David CC. Microsatellite instability in prostate cancer by PCR or next-generation sequencing. Journal for immunotherapy of cancer. 2017Jun 23;6(1):29. Epub 2017Jun 23. doi: 10.1186/u35196-210-7727-z. PubMed PMID: 62897199. PubMed Central PMCID: [id number]. 7. Erica Mcghee, Daljit K, Ysabel S, Ralf M, Kathie K, Mariano J, Mendy B, Trina G. Molecular Diagnostics of Gliomas Using Next Generation Sequencing of a Glioma-Tailored Gene Panel. Brain pathology ([facility]). 2016;27(2):146-159. Epub 2015Jun 25. doi: 10.1111/bpa.11651. PubMed PMID: 02260931. 8. Liban C, Alli LM, Marian X, Darron WK, Liban W. IDH1/2 mutations target a messer hallmark of cancer by deregulating cellular metabolism i n glioma. Neuro-oncology. 2013 Nov;15(9):1114-26. Epub 2012Sep 26. doi: 10.1093/neuonc/ale733. PubMed PMID: 42566453. PubMed Central PMCID: IBO1185296. 9. Markos GUILLEN, Jonathan AI, Ally MA, Cesar S, Tay S, Best RL, Itzel FS, Ulises J, Gallo NM, Shiloh IF, Kory YE, Maranda Franks. Targeted next-generation sequencing panel (GlioSeq) provides comprehensive genetic profiling of central nervous system tumors. Neuro-oncology. 2016 May;18(3):379-87. Epub 2014Feb 22. doi: 10.1093/neuonc/xcc308. PubMed PMID: 68500699. PubMed Central PMCID: OHS7169997. 10. Dilan PJ, Meghna A, Bill HJ, Roya EJ. A wide spectrum of EGFR mutations in glioblastoma is detected by a single clinical oncology targeted next-generation sequencing panel. Experimental and molecular pathology. 2015 Aug;98(3):568-73. Epub 2014Jun 28. doi: 10.1016/j.yexmp.2015.04.006. PubMed PMID: 28745488. PubMed Central PMCID: YAH0701691. REPORT TAN TROTTER [id number] 10/23/2023 SEE BELOW Final Comment: Jason Jarrett M.D., Chipper Machine Operator Electronically signed by Arti De Leon, PhD, [facility] [employer] is a division of [employer] [address] [place] [address] Created ThuOct 29 15:28:16 EDT 2023 HAPTO 10/23/2023 <30 (L) 44 - 215 mg/dL Final Ferritin 10/23/2023 22 11 - 307 ng/mL Final IRON 10/23/2023 61 50 - 212 ug/dL Final UIBC 10/23/2023 271 155 - 355 ug/dL Final TIBC 10/23/2023 332 261 - 478 ug/dl Final % Saturation 10/23/2023 18 (L) 20 - 50 % Final Folate 10/23/2023 >20.00 >=5.90 ng/mL Final Vitamin B12 10/23/2023 839 180 - 914 pg/mL Final IGG 10/23/2023 823 635 - 1,741 mg/dL Final IGA 10/23/2023 261 66 - 433 mg/dL Final IGM 10/23/2023 86 45 - 281 mg/dL Final IMMUNOFIXATION RESULT, SERUM 10/23/2023 COMMENT Final NO MONOCLONALITY DETECTED. PROTEIN, TOTAL, SERUM 10/23/2023 6.3 6.0 - 8.5 G/DL Final ALBUMIN 10/23/2023 3.1 2.9 - 4.4 G/DL Final [id number] 10/23/2023 0.4 0.0 - 0.4 G/DL Final [id number]-0-[id number] 10/23/2023 0.7 0.4 - 1.0 G/DL Final BETA GLOBULIN 10/23/2023 1.2 0.7 - 1.3 G/DL Final GAMMA GLOBULIN 10/23/2023 0.9 0.4 - 1.8 G/DL Final M-SPIKE 10/23/2023 NOT OBSERVED NOT OBSERVED G/DL Final GLOBULIN, TOTAL 10/23/2023 3.2 2.2 - 3.9 G/DL Final A/G RATIO 10/23/2023 1.0 0.7 - 1.7 Final PLEASE NOTE: 10/23/2023 COMMENT Final Comment: PROTEIN ELECTROPHORESIS SCAN WILL FOLLOW VIA COMPUTER, MAIL, OR PASTRY WRAPPER DELIVERY. PDF 10/23/2023 . Final LDH 10/23/2023 217 140 - 271 U/L Final Glucose 10/23/2023 142 (H) 70 - 105 mg/dL Final Blood Urea Nitrogen 10/23/2023 17 7 - 25 mg/dL Final Creatinine 10/23/2023 1.2 0.6 - 1.2 mg/dL Final Sodium 10/23/2023 139 136 - 145 mEq/L Final Potassium 10/23/2023 4.2 3.5 - 5.1 mEq/L Final Chloride 10/23/2023 99 98 - 107 mEq/L Final Bicarbonate 10/23/2023 34 (H) 21 - 31 mEq/L Final Total Bilirubin 10/23/2023 0.3 0.3 - 1.0 mg/dL Final Alk. Phosphatase 10/23/2023 77 34 - 104 U/L Final Aspartate Aminotransferase 10/23/2023 18 13 - 39 U/L Final Alanine Aminotransferase 10/23/2023 12 7 - 52 U/L Final Total Protein 10/23/2023 6.2 (L) 6.4 - 8.9 g/dL Final Albumin 10/23/2023 3.7 3.5 - 5.7 g/dL Final Calcium 10/23/2023 11.0 (H) 8.6 - 10.3 mg/dL Final Anion Gap 10/23/2023 10.2 7.0 - 15.0 mEq/L Final Globulin 10/23/2023 2.5 2.0 - 3.5 g/dL Final EGFR 10/23/2023 46 (L) >60 ml/min/1.73m2 Final Comment: This eGFR is calculated using 2020 CKD-EPI Creatinine equation without race modifier based on the NKF-ASN task force recommendations BRADY', DIRECT 10/23/2023 NEGATIVE NEGATIVE Final WBC 10/23/2023 5.6 4.0 - 10.0 10*3/uL Final HGB 10/23/2023 10.8 (L) 11.2 - 15.7 g/dL Final HCT 10/23/2023 36.3 34.1 - 44.9 % Final PLT 10/23/2023 276 163 - 369 10*3/uL Final MPV 10/23/2023 11.6 9.4 - 12.4 fL Final RBC 10/23/2023 3.54 (L) 3.93 - 5.22 10*6/uL Final MCV 10/23/2023 103 (H) 79 - 95 fL Final MCH 10/23/2023 30.5 25.6 - 32.2 pg Final MCHC 10/23/2023 29.8 (L) 32.2 - 36.5 g/dL Final RDW 10/23/2023 17.2 (H) 11.6 - 14.4 % Final Neutrophils % 10/23/2023 60.4 36.0 - 66.0 % Final Lymphocytes % 10/23/2023 19.4 19.0 - 40.0 % Final Monocytes % 10/23/2023 13.1 (H) 4.1 - 12.1 % Final Eosinophils % 10/23/2023 5.5 (H) 0.0 - 3.5 % Final Basophils % 10/23/2023 1.2 (H) 0.0 - 1.0 % Final Absolute Neutrophils 10/23/2023 3.4 1.4 - 6.6 10*3/uL Final Absolute Lymphocytes 10/23/2023 1.1 0.8 - 4.0 10*3/uL Final Absolute Monocytes 10/23/2023 0.7 0.2 - 1.2 10*3/uL Final Absolute Eosinophils 10/23/2023 0.3 0.0 - 0.4 10*3/uL Final Absolute Basophils 10/23/2023 0.1 0.0 - 0.1 10*3/uL Final FREE KAPPA LT CHAINS 10/23/2023 45.8 (H) 2.9 - 20.7 mg/L Final FREE LAMBDA LT CHAINS 10/23/2023 35.0 (H) 4.2 - 27.6 mg/L Final KAPPA/LAMBDA RATIO 10/23/2023 1.31 0.22 - 1.74 Final documented in this encounter Plan of Treatment Scheduled Orders Name Type Priority Associated Diagnoses Orde r Schedule COMPLETE BLOOD COUNT (CBC) WITH DIFF Lab Routine Macrocytic anemia Iron deficiency Low serum haptoglobin H/O mechanical aortic valve replacement Expected: 02/08/2024, Expires: 02/28/2024 CMP (COMPREHENSIVE METABOLIC PANEL) Lab Routine Macrocytic anemia Iron deficiency Low serum haptoglobin H/O mechanical aortic valve replacement Expected: 02/08/2024, Expires: 02/28/2024 LACTATE DEHYDROGENASE (LD) Lab Routine Macrocytic anemia Iron deficiency Low serum haptoglobin H/O mechanical aortic valve replacement Expected: 02/08/2024, Expires: 02/28/2024 IRON W/ IRON BINDING CAPACITY [place] Lab Routine Macrocytic anemia Iron deficiency Low serum haptoglobin H/O mechanical aortic valve replacement Expected: 02/08/2024, Expires: 02/28/2024 FERRITIN Lab Routine Macrocytic anemia Iron deficiency Low serum haptoglobin H/O mechanical aortic valve replacement Expected: 02/08/2024, Expires: 02/28/2024 VITAMIN B12 Lab Routine Macrocytic anemia Iron deficiency Low serum haptoglobin H/O mechanical aortic valve replacement Expected: 02/08/2024, Expires: 02/28/2024 FOLIC ACID (FOLATE) Lab Routine Macrocytic anemia Iron deficiency Low serum haptoglobin H/O mechanical aortic valve replacement Expected: 02/08/2024, Expires: 02/28/2024 [place] [employer] [place] [id number] Lab Routine Macrocytic anemia Iron deficiency Low serum haptoglobin H/O mechanical aortic valve replacement Expected: 02/08/2024, Expires: 02/28/2024 documented as of this encounter Visit Diagnoses Diagnosis Macrocytic anemia- Primary Unspecified deficiency anemia Iron deficiency Other disorders of iron metabolism Low serum haptoglobin H/O mechanical aortic valve replacement Heart valve replaced by other means documented in this encounter Care Teams Legal Nurse Consultant Relationship Specialty Start Date End Date Sanjeev Webster DO [address] [place] [address] PCP - General Family Medicine 09/14/23 Blade Phillips MD [address] [place] [phone] Oncology 09/14/23 documented as of this encounter
--- OUTSIDE RECORDS SUMMARY | 2024-03-15 01:53 | XMS_ITS | Encounter Summary ---
Author Organization [employer] Care Team Providers Care Lumber Planer Name Role Phone Sanjeev Webster DO Primary Care Provider + Blade Phillips MD Unavailable [phone] Encounter Details Date Type Department Care Team (Latest Contact Info) Description 11/20/2023 Travel Social History Tobacco Use Types Packs/Day [...] things Not at all 11/20/2023 1:23 PM DARRYLT Myriam Thomas CMA Feeling down, depressed, or hopeless Not at all 11/20/2023 1:23 PM CDT Myriam Thomas CMA * Over the past 2 weeks, how often have you been bothered by any of the following problems? Question Answer Date of Assessment Author Patient Health Questionnaire -2 Score 0 11/20/2023 1:23 PM DARRYLT Myriam Thomas CMA documented as of this encounter Plan of Treatment Not on file documented as of this encounter Visit Diagnoses Not on filedocumented in this encounter Care Teams Lumber Planer Relationship Specialty Start Date End Date Sanjeev Webster DO [address] [place] [address] PCP - General Family Medicine 09/14/23 Blade Phillips MD [address] [place] [phone] Oncology 09/14/23 documented as of this encounter
--- OUTSIDE RECORDS SUMMARY | 2024-03-15 01:55 | XMS_ITS | Encounter Summary ---
Author Organization [facility] Address [address] [place] [address] Care Team Providers Care Ob Tech Name Role Phone Sanjeev Webster Primary Care Provide r Encounter Details Date Type Department Care Team (Late st Contact Info) Description 08/30/2021 Telephone [facility] Cardiology [address] [place] [address] Maurice Paredes MD [address] [facility] [address] [place] [address] Social History Tobacco Use Types Packs/Day Years Used Date Smoking Tobacco: Never Smokeless Tobacco: Never Alcohol Use Standard Drinks/Week Comments No 0 (1 standard drink = 0.6 oz pur e alcohol) PHQ-2 Answer Date Recorded PHQ-2 Total Score (If total score is 3 or more points, staff should administer the PHQ-9) 0 08/11/2020 Comments Unknown Sex and Gender Information Value Date Recorded Sex Assigned at Not on file Legal Sex Female 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 * Telephone Encounter - Ana Maria Hess NP - 08/30/2021 3:21 PM CDT She should continue amiodarone and if PCP wants to start a beta-lexy that is okay, but the patient should monitor her heart rate and report a heart rate reading to PCP within a week. The patient needs to keep her appointment with Dr. Paredes on September 12 to discuss this further. Thank you. * Telephone Encounter - Ana Maria Hess NP - 08/30/2021 3:19 PM CDT I guess I'm not understanding why adding the beta-lexy is treating her hypothyroidism. Is he wanting to stop amiodarone? Because this can cause hypothyroidism. And add a beta-lexy in its place? * Telephone Encounter - Ryanne Pierre RN - 08/30/2021 2:47 PM CDT Pts PCP office calls to report that her recent labs show her to have hyperthyroid. Pt is on amiodarone. PCP wants to add a Beta lexy, he said due to her hyperthyroid. He is aware that AD is on vacation until 7.6 and opt has an appt on 7.7. but did not want to wait until then for an answer on the BB. Please advise * Telephone Encounter - Cameron Arana - 08/30/2021 2:38 PM CDT Scarlett called from office PCP, requesting a call from a nurse in regard to pt Amiodarone &Hyperthyroidism,and AD recommendation for adding a beta lexy .Please advise.Thank you Contact:[phone] documented in this encounter Plan of Treatment Not on file documented as of this encounter Visit Diagnoses Not on filedocumented in this encounter Care Teams Ob Tech Relationship Specialty Start Date End Date Sanjeev Webster DO [address] [place] [id number] PCP - General Family Medicine 03/11/21 documented as of this encounter
--- OUTSIDE RECORDS SUMMARY | 2024-03-15 01:55 | XMS_ITS | Encounter Summary ---
Author Organization [facility] Healthcare Address [address] [place] [id number] Care Team Providers Care Mail Handler Name Role Phone Darin Sanjeev Ricardo Primary Care Provide r Reason for Visit * Reason Comments Follow-up Transferring from Dr Angelo Paredes. DC from [facility] 11/03/23 Dx: SOB, Palps Atrial Fibrillation Coronary Artery Disease Encounter Details Date Type Department Care Team (Late st Contact Info) Description 02/29/2024 10:30 AM BRONZE CHASER Office Visit [facility] Cardiology [address] [place] [address] Paxton Villela MD [address] [place] [id number] Social History Tobacco Use Types Packs/Day [...] on file Legal Sex Female 6:10 AM BRONZE CHASER Gender Identity Not on file Sexual Orientation Not on file documented as of this encounter Last Filed Vital Signs Vital Sign Reading Time Taken Comments Blood Pressure 90/64 02/29/2024 10:36 AM BRONZE CHASER Pulse 68 02/29/2024 10:36 AM BRONZE CHASER Temperature - - Respiratory Rate - - Oxygen Saturation 98% 02/29/2024 10:36 AM BRONZE CHASER Inhaled Oxygen Concentration - - Weight 79.8 kg (176 lb) 02/29/2024 10:36 AM BRONZE CHASER Height 165.1 cm (5' 5 ) 02/29/2024 10:36 AM BRONZE CHASER Body Mass Index 29.29 02/29/2024 10:36 AM BRONZE CHASER documented in this encounter Plan of Treatment Not on file documented as of this encounter Visit Diagnoses Not on filedocumented in this encounter Historical Medications * This list may reflect changes made after this encounter. colchicine (COLCRYS) 0.6 mg tablet Day 1: 1.2 mg at the first sign of flare, followed by 0.6 mg after 1 hour. Day 2 and after: take 0.6 mg once daily until resolves 02/24/2024 semaglutide (OZEMPIC SUBQ) Inject under the skin methIMAzole (TAPAZOLE) 5 mg tablet Take 1 tablet (5 mg total) by mouth daily 05/04/2023 potassium chloride ER 10 mEq CR tablet Take 1 tablet/capsule (10 mEq total) by mouth 2 (two) times a day simvastatin (ZOCOR) 10 mg tablet Take 1 tablet (10 mg total) by mouth nightly added in this encounter Care Teams Mail Handler Relationship Specialty Start Date End Date Sanjeev Webster DO [address] [place] [phone] PCP - General Family Medicine 03/11/21 documented as of this encounter
--- OUTSIDE RECORDS SUMMARY | 2024-03-15 01:55 | XMS_ITS | Encounter Summary ---
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 for stroke risk reduction. CHADS2 Vasc score 3-4. -failed Sotalol stopped, Amiodarone stopped out of concern for toxicity. -h/o bradycardia on Metoprolol and Amiodarone but stable on Toprol XL 25mg daily. -Off Toprol XL 25mg currently on Metoprolol tartrate 12.5mg BID per PCP note, pt not sure but sounds right she says. -Off Amiodarone given toxicity concerns. -Concern for tachy-amber and possible need for PPM if symptomatic amber and or tachyarrhythmia. Stable at this time. Will continue to monitor clinically. Will need to clarify med list with PCP. -LHC 2002 with minimal luminal irregularities.12/2018 Lexiscan possible old anterior TN EF 62%. Over 50% of this visit counseling mechanical aortic valve, HTN, lipids, medications, lifestyle modification. Follow up in the office in 3 months or sooner as needed. Thank you for allowing me the privilege of participating in the care this very pleasant patient. Please do not hesitate to contact me with any additional questions or concerns. Dilma Paredes MD, [facility] documented in this encounter Plan of Treatment Not on file documented as of this encounter Visit Diagnoses Diagnosis Coronary artery disease involving [place] coronary artery of [place] heart without angina pectoris- Primary Paroxysmal atrial fibrillation (CMS/HCC) (HCC) Atrial fibrillation Paroxysmal atrial flutter (CMS/HCC) (HCC) Hypertension associated with diabetes (HCC) Unspecified essential hypertension 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 LBBB (left bundle branch block) Other left bundle branch block Mixed diabetic hyperlipidemia associated with type 2 diabetes mellitus (HCC) History of mechanical aortic valve replacement Chronic anticoagulation Encounter for long-term (current) use of anticoagulants documented in this encounter Historical Medications * This list may reflect changes made after this encounter. ferrous sulfate (iron) 325 mg (65 mg of elemental iron) tabletIndication s:Iron Deficiency Anemia Take 1 tablet (325 mg total) by mouth daily with breakfast amiodarone (PACERONE) 100 mg tablet Take 1 tablet (100 mg total) by mouth daily 3 added in this encounter Care Teams Vocational Rehabilitation Supervisor Relationship Specialty Start Date End Date Sanjeev Webster DO [address] [place] [id number] PCP - General Family Medicine 03/11/21 documented as of this encounter
--- OUTSIDE RECORDS SUMMARY | 2024-03-15 01:55 | XMS_ITS | Encounter Summary ---
Author Organization [facility] Address [address] [place] [address] Care Team Providers Care Solar Photovoltaic Designer Name Role Phone Sanjeev Webster Primary Care Provide r Reason for Visit * Reason Comments Follow-up 6 week f/u Coronary Artery Disease Atrial Flutter Encounter Details Date Type Department Care Team (Latest Contact Info) Description 01/16/2022 12:15 PM RECRUITER MANAGER Office Visit [facility] [address] [place] [address] Maurice Paredes MD [id number] [place] [address] Coronary artery disease involving [place] coronary artery of [place] heart without angina pectoris (Primary Dx); Paroxysmal atrial flutter (CMS/HCC) (HCC); Hypertension associated with diabetes (HCC); LBBB (left bundle branch block); Mixed diabetic hyperlipidemia associated with type 2 diabetes mellitus (CMS/HCC) (HCC); History of mechanical aortic valve replacement; VAZQUEZ on CPAP; Chronic anticoagulation Social History Tobacco Use Types [...] on file Legal Sex Female 6:10 AM RECRUITER MANAGER Gender Identity Not on file Sexual Orientation Not on file documented as of this encounter Last Filed Vital Signs Vital Sign Reading Time Taken Comments Blood Pressure 114/58 01/16/2022 12:26 PM RECRUITER MANAGER Pulse 62 01/16/2022 12:26 PM RECRUITER MANAGER Temperature - - Respiratory Rate - - Oxygen Saturation 97% 01/16/2022 12:26 PM RECRUITER MANAGER Inhaled Oxygen Concentration - - Weight 76.9 kg (169 lb 8 oz) 01/16/2022 12:26 PM RECRUITER MANAGER Height 165.1 cm (5' 5 ) 01/16/2022 12:26 PM RECRUITER MANAGER Body Mass Index 28.21 01/16/2022 12:26 PM RECRUITER MANAGER documented in this encounter Progress Notes * Maurice Paredes MD - 01/16/2022 12:15 PM [facility] DATE OF VISIT: 01/16/2022 CHIEF COMPLAINT Chief Complaint Patient presents with Follow-up 6 week f/u Coronary Artery Disease Atrial Flutter HPI Radha A Amina is a 76 y.o. female with a [...] pulled muscles lifting a couch. Denies CP, OTRRES, falls, palpitations, bleeding. Tolerating meds. Notes mild swelling at times she states in the R leg. Watching diet and plans on going to the gym water exercises after ribs heal up. Going to see PCP. 08/12/17 Admitted to [facility] in June due to SOB found to be in A.Fib and started on Diltiazem and Metoprolol. Was discharged still with TORRES then sxs continued to worsen and readmitted to [facility] in July. She was started on Sotalol [...] little. She still has not seen a Electrical Drafter. Not using CPAP for a year. She later admits she is only taking maybe 4 of her medicines but she is not sure if she is taking Sotalol. 02/08/19 CAT visit: Patient presented to [facility] on 12/17/18 complaint of shortness [...] has also not been sleeping well. See ROS for pertinent negatives. I later called her [...] 04/02/21 HFU w/ CAT- she went into [facility] on 03/21/21 with complaint of worsening dyspnea.She [...] note from myself, 03/21/21 inpatient notes from [facility] including the H&P, consultation note from Dr. [...] Amiodarone 100mg daily. 12/06/21 very sick at [facility] pneumonia lost 20lb still SOB but slowly [...] visit. Had a cold recently she notes. MEDICAL HISTORY Past Medical History: Diagnosis Date [...] : Myocardial Infarction MEDICATIONS HOME MEDICATIONS : acetaminophen (TYLENOL) 325 mg tablet albuterol HFA (PROVENTIL HFA,VENTOLIN HFA,PROAIR HFA) 90 mcg/actuation inhaler ALPRAZolam (XANAX) 0.25 mg tablet atorvastatin (LIPITOR) 10 mg tablet azelastine (ASTELIN) 137 mcg (0.1 %) nasal spray cholecalciferol, vitamin D3, 1,000 unit tablet,chewable fluticasone propionate (FLONASE) 50 mcg/actuation nasal spray furosemide (LASIX) 20 mg tablet gabapentin (NEURONTIN) 300 mg capsule HYDROcodone-acetaminophen (NORCO) 10-325 mg per tablet lisinopril (PRINIVIL,ZESTRIL) 2.5 mg tablet metoprolol XL (TOPROL-XL) 25 mg extended release tablet omeprazole (PriLOSEC) 20 mg capsule polyethylene glycol (MIRALAX) 17 gram packet senna (SENOKOT) 8.6 mg tablet venlafaxine XR (EFFEXOR-XR) 150 mg 24 hr capsule warfarin (COUMADIN) 6 mg tablet ALLERGIES Allergies Allergen Reactions Bacitracin Benzalkonium Gramicidin D Hydrocortisone Neomycin Polymyxin B Skin Cleanser Neosporin (Czh-Wyl-Bxtsc) [Zogkxlcr-Dpdwbfotvc-Cpigdfzwr] Other (See comments) It makes things worse instead of healing. REVIEW OF SYSTEMS Review of Systems Constitutional: Positive for malaise/fatigue and weight loss. Negative for decreased appetite, diaphoresis, fever, night sweats and weight gain. HENT: Negative for hearing loss and nosebleeds. Eyes: Negative for blurred vision and pain. Cardiovascular: Positive for dyspnea on exertion. Negative for chest pain, claudication, irregular heartbeat, leg swelling, near-syncope, orthopnea, palpitations [...] not nervous/anxious. Allergic/Immunologic: Negative for environmental allergies. PHYSICAL EXAM Vitals BP 114/58 (BP Location: Left arm, Patient Position: Sitting) Pulse 62 Ht 165.1 cm (5' 5 ) Wt 76.9 kg (169 lb 8 oz) SpO2 97% BMI 28.21 kg/m?? Weight: 76.9 kg (169 lb 8 oz) Height: 165.1 cm (5' 5 ) Body mass index is 28.21 kg/m??. Physical Exam Vitals reviewed. Constitutional: General: She is not in acute distress. Appearance: Normal appearance. She is well-developed. She is not diaphoretic. Comments: Superficial bruising L forehead HENT: Head: Normocephalic and atraumatic. Right Ear: External ear normal. Left Ear: External ear normal. Nose: Nose normal. Mouth/Throat: Dentition: Normal dentition. Eyes: General: Lids are normal. No scleral icterus. Conjunctiva/sclera: Conjunctivae normal. Neck: Thyroid: No thyromegaly. Vascular: Normal carotid pulses. No carotid bruit, hepatojugular reflux or JVD. Trachea: No tracheal deviation. Cardiovascular: Rate and Rhythm: Normal rate. Rhythm irregularly irregular. Pulses: Normal pulses and intact distal pulses. Heart sounds: S1 normal and S2 normal. Heart sounds not distant. Murmur heard. Medium-pitched early systolic murmur is present with a grade of 2/6. [place] metallic S2 No friction rub. No gallop. [...] is normal. Atrial fibrillation. Possible old anterior OR. Negative EKG portion of stress test. Personally reviewed EKG, Echocardiogram, stress test, and bloodwork/lipids and hospital records from [facility] 06/2017 and [facility] 07/2017. ASSESSMENT Diagnoses and all orders for this visit: Coronary artery disease involving [place] coronary artery of [place] heart without angina pectoris (Primary) Paroxysmal atrial flutter (CMS/HCC) (HCC) - ECG 12 lead Hypertension associated with diabetes ([facility]) LBBB (left bundle branch block) Mixed diabetic hyperlipidemia associated with type 2 diabetes mellitus (CMS/HCC) ([facility]) History of mechanical aortic valve replacement VAZQUEZ on CPAP Chronic anticoagulation PLAN/RECOMMENDATIONS 1. BP controlled, goal <130/80mmHg. Monitor BP on routine basis. Call with readings. Continue consistent cardiovascular exercise, weight loss, medication compliance, and low-sodium diet. -Stay hydrated, ambulate with caution. -Lisinopril 2.5mg daily 2. Lifestyle modification counseling performed. Weight loss, exercise, reduction in caloric intake. 3. Prophylactic ABx prior to dental/surgical procedures for AVR. 4. Continue systemic A/C with warfarin goal INR 2-3 monthly checks or as directed. Monitor for bleeding. Managed by PCP. Will need to monitor more closely off Amiodarone as this affect her INR. -go to ER immediately if any falls, bleeding or head injuries. 5. No CHF sxs at present. Compensated. CHF counseling performed. Follow daily weight, less than 2 gdaily sodium intake, medication compliance. Call w/ wt gain >3lb in 24 hrs or worsening edema and/or TORRES. -Continue Lasix 20 mg daily. Ambulate with extreme caution. 6. DM managed by PCP. -She has not resumed CPAP. 7. Personally reviewed lipids 09/12/21 LDL 90, not ideally controlled goal LDL<70. Continue Atorvastatin 10mg qhs for now. 8. Compared Echo 2014 and 05/2016 and 10/2018 mild increase in velocities but stable. Trivial AI. Will continue to monitor closely. -last echo 03/2021 EF 50 55% moderate LVH moderate peak velocity 2.75 m/sec mean gradient 16 mm Hg valve area 1.1 centimeter squared RVSP 34 mm Hg reported did not recognize presence of AVR, however. 9. Stable, paroxysmal A. flutter currently in sinus rhythm with history of failed ALFRED/CV 01/2019. Continue current medical therapy and systemic anticoagulation for stroke risk reduction. CHADS2 Vasc score 3-4. -failed Sotalol stopped, Amiodarone stopped out of concern for toxicity. -h/o bradycardia on Metoprolol and Amiodarone but stable on Toprol XL 25mg daily. -Tolerating Toprol XL 25mg daily -Off Amiodarone given toxicity concerns. -Concern for tachy-amber and possible need for PPM if symptomatic amber and or tachyarrhythmia. Stable at this time. Will continue to monitor clinically. -12 lead EKG today personally reviewed and discussed sinus rhythm 69 beats per minute first-degree AV block [place] interval 274 milliseconds QRS 136 milliseconds QT corrected 456 milliseconds, LBBB abnormal ECG. -LHC 2001 with minimal luminal irregularities.12/2018 Lexiscan possible old anterior [place] EF 62%. Over 50% of this visit counseling mechanical aortic valve, HTN, lipids, medications, lifestyle modification. Follow up in the office in 3-4 months or sooner as needed. Thank you for allowing me the privilege of participating in the care this very pleasant patient. Please do not hesitate to contact me with any additional questions or concerns. Dilma Paredes MD, FACC UITER MANAGER documented in this encounter Plan of Treatment Not on file documented as of this encounter Procedures Procedure Name Priority Date/Time Associated Diagnosis Comments ECG 12-LEAD Routine 01/16/2022 Paroxysmal atrial flutter (CMS/HCC) (HCC) documented in this encounter Results * ECG 12 lead (01/16/2022) Maurice Paredes MD ECG ORDERABLES Edited R esult - Final documented in this encounter Visit Diagnoses Diagnosis Coronary artery disease involving [place] coronary artery of [place] heart without angina pectoris- Primary Paroxysmal atrial flutter (CMS/HCC) (HCC) Hypertension associated with diabetes (HCC) Unspecified essential hypertension LBBB (left bundle branch block) Other left bundle branch block Mixed diabetic hyperlipidemia associated with type 2 diabetes mellitus (HCC) History of mechanical aortic valve replacement VAZQUEZ on CPAP Chronic anticoagulation Encounter for long-term (current) use of anticoagulants documented in this encounter Care Teams Solar Photovoltaic Designer Relationship Specialty Start Date End Date Sanjeev Webster DO [address] [place] [id number] PCP - General Family Medicine 03/11/21 documented as of this encounter
--- OUTSIDE RECORDS SUMMARY | 2024-03-15 01:55 | XMS_ITS | Encounter Summary ---
Author Organization [facility] Address [address] [place] [address] Care Team Providers Care Billing Coordinator Name Role Phone Sanjeev Webster DO Primary Care Provide r Reason for Visit * Reason Comments Hospital Follow Up * Cardiology (Routine) - Canceled Specialty Diagnoses / Procedures Referred By Contac t Referred To Contact Cardiology Diagnoses Tachycardia, unspecified Diastolic congestive heart failure, unspecified HF chronicity (HCC) Sanjeev eWbster DO [address] [place] [address] Phone: tel: fax: [facility]iology [address] [place] [phone] Phone: tel: fax: Referral ID Status Reason Start Date Expiration Date Visits Requested Visits Authorized [id number] Canceled Specialty Services Required 04/11/2022 11/06/2022 6 6 Encounter Details Date Type Department Care Team (Late st Contact Info) Description 09/18/2022 3:00 PM CDT Office Visit [facility] Cardiology [address] [phone] Ana Maria Hess NP [address] [address] Lipid screening (Primary Dx); Coronary artery disease involving agdaagux coronary artery of agdaagux heart without angina pectoris; Paroxysmal atrial fibrillation (CMS/HCC) (HCC); Paroxysmal atrial flutter (CMS/HCC) (HCC); Chronic anticoagulation; History of mechanical aortic valve replacement; Hospital discharge follow-up Social History Tobacco Use Types Packs/Day Years Used Date Smoking Tobacco: Never Smokeless Tobacco: Never Tobacco Cessation:Counseling Given: Not Answered Alcohol Use Standard Drinks/Week Comments No 0 (1 standard drink = 0.6 oz pur e alcohol) PHQ-2 Answer Date Recorded PHQ-2 Total Score (If total score is 3 or more points, staff should administer the PHQ-9) 0 08/11/2020 Comments Unknown Sex and Gender Information Value Date Recorded Sex Assigned at Not on file Legal Sex Female 6:10 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 Gender Identity Not on file Sexual Orientation Not on file documented as of this encounter Last Filed Vital Signs Vital Sign Reading Time Taken Comments Blood Pressure 122/66 09/18/2022 3:23 PM CDT Pulse 64 09/18/2022 3:23 PM CDT Temperature - - Respiratory Rate - - Oxygen Saturation 97% 09/18/2022 3:23 PM CDT Inhaled Oxygen Concentration - - Weight 85.1 kg (187 lb 9.6 oz) 09/18/2022 3:23 P M CDT Height 165.1 cm (5' 5 ) 09/18/2022 3:23 PM CDT Body Mass Index 31.22 09/18/2022 3:23 PM CDT documented in this encounter Progress Notes * Ana Maria Hess NP - 09/18/2022 3:00 PM CDT Images from the original note were not included. [facility] Cardiology [address] [place] [address] Date of Visit: 09/18/2022 Patient ID: Radha Huynh 1945 Chief Complaint: Radha Huynh is a 77 y.o. female who is an established patient of Dr. Paredes with a history of mechanical aortic valve, PAF and CAD, returning to the office for hospital follow-up after she wastreated for orthostatic hypotension and OLIVE. History of Present Illness: Radha Huynh is a 77 y.o. female with a PMHx of mechanical [...] Going to see PCP. 08/12/17 Admitted to [facility] in June due to SOB found to be in A.Fib and started on Diltiazem and Metoprolol. Was discharged still with TORRES then sxs continued to worsen and readmitted to [facility] in July. She was started on Sotalol [...] little. She still has not seen a Floor Scrubber. Not using CPAP for a year. She later admits she is only taking maybe 4 of her medicines but she is not sure if she is taking Sotalol. 02/08/19 CAT visit: Patient presented to [facility] on 12/17/18 complaint of shortness of breath. [...] edema of late. No CP or palps. 1/25/21 CAT telemedicine visit- she requested a telephone [...] 04/02/21 HFU w/ CAT- she went into [facility] on 03/21/21 with complaint of worsening dyspnea.She [...] takes an alprazolam her dyspnea gets better. 09/12/21 states doing ok beginning of the [...] Amiodarone 100mg daily. 12/06/21 very sick at [facility] pneumonia lost 20lb still SOB but slowly [...] she admits. Has labs upcoming once again. 09/18/22 CAT visit- at PCP visit 08/26/22 she was hypotensive, weak and dizzy, advised to go to ER and admitted to [facility] in [place], had positive orthostatics, OLIVE, she was given IV fluid and orthostasis resolved. At time of discharge creatinine 0.9, EGFR 58, discharged with furosemide 40 mg daily. Today she reports she is no longer dizzy when she stands. She denies any chest pain or palpitations. She does not feel like she is retaining any fluid. Records that I personally reviewed on the day of this visit include: (the interpretation is outlined in the HPI above) 04/11/[address] Paredes, 08/29/2022 [facility] discharge summary. I have also reviewed: allergies, current medications, past family history, past medical history, past social history, past surgical history and problem list Review of Systems Constitutional: Negative for malaise/fatigue, weight gain and weight loss. Cardiovascular: Negative for chest pain, claudication, dyspnea on exertion, leg swelling, near-syncope, orthopnea, palpitations, paroxysmal nocturnal dyspnea and syncope. Respiratory: Negative for cough, shortness of breath and sleep disturbances due to breathing. Hematologic/Lymphatic: Negative for bleeding problem. Does not bruise/bleed easily. Musculoskeletal: Positive for joint pain. Neurological: Negative for dizziness and light-headedness. Vital Signs: BP 122/66 Pulse 64 Ht 165.1 cm (5' 5 ) Wt 85.1 kg (187 lb 9.6 oz) SpO2 97% BMI 31.22 kg/m?? Physical Exam Constitutional: General: She is not in acute distress. Appearance: She is well-developed. She is obese. HENT: Head: Normocephalic and atraumatic. Nose: Nose normal. Eyes: General: No scleral icterus. Conjunctiva/sclera: Conjunctivae normal. Pupils: Pupils are equal, round, and reactive to light. Neck: Vascular: No JVD. Trachea: No tracheal deviation. Cardiovascular: Rate and Rhythm: Normal rate and regular rhythm. Heart sounds: Normal heart sounds. No murmur heard. Comments: Mechanical click. Pulmonary: Effort: Pulmonary effort is normal. No respiratory distress. Breath sounds: Normal breath sounds. Musculoskeletal: Cervical back: Normal range of motion. Right lower leg: No edema. Left lower leg: No edema. Skin: General: Skin is warm and dry. Neurological: Mental Status: She is alert and oriented to person, place, and time. Psychiatric: Mood and Affect: Mood normal. Allergies Allergen Reactions Bacitracin Benzalkonium Gramicidin D Hydrocortisone Neomycin Polymyxin B Skin Cleanser Neosporin (Lxb-Qlh-Rktcy) [Gtvwlplt-Wzyotcnvpo-Gekirteth] Other (See comments) It makes things worse instead of healing. Current Outpatient Medications: acetaminophen (TYLENOL) 325 mg tablet, Take 2 tablets (650 mg total) by mouth every 6 (six) hours as needed (pain), Disp: 30 tablet, Rfl: ALPRAZolam (XANAX) 0.25 mg tablet, Take 1 tablet (0.25 mg total) by mouth 2 (two) times a day as needed, Disp: , Rfl: atorvastatin (LIPITOR) 10 mg tablet, TAKE 1 TABLET BY MOUTH ONCE DAILY AT BEDTIME, Disp: 90 tablet,Rfl: 2 azelastine (ASTELIN) 137 mcg (0.1 %) nasal spray, Use in each nostril daily, Disp: 30 mL, Rfl: cholecalciferol, vitamin D3, 1,000 unit tablet,chewable, Take 1 tablet/chew tab by mouth daily, Disp: , Rfl: ferrous sulfate (iron) 325 mg (65 mg of elemental iron) tablet, Take 1 tablet (325 mg total) by mouth daily with breakfast, Disp: , Rfl: fluticasone propionate (FLONASE) 50 mcg/actuation nasal spray, Administer 1 spray into each nostrildaily, Disp: , Rfl: furosemide (LASIX) 40 mg tablet, Take 1 tablet (40 mg total) by mouth daily, Disp: , Rfl: HYDROcodone-acetaminophen (NORCO) 10-325 mg per tablet, Take 2 tablets by mouth every 8 (eight) hours as needed (pain), Disp: 30 tablet, Rfl: 0 metoprolol tartrate (LOPRESSOR) 25 mg immediate release tablet, Take 0.5 tablets (12.5 mg total) bymouth 2 (two) times a day, Disp: , Rfl: omeprazole (PriLOSEC) 20 mg capsule, Take 1 capsule (20 mg total) by mouth daily, Disp: , Rfl: polyethylene glycol (MIRALAX) 17 gram packet, Take 1 packet (17 g total) by mouth 2 (two) times a day as needed for constipation, Disp: , Rfl: warfarin (COUMADIN) 6 mg tablet, Take 1 tablet (6 mg total) by mouth daily, Disp: 60 tablet, Rfl: 0 albuterol HFA (PROVENTIL HFA,VENTOLIN HFA,PROAIR HFA) 90 mcg/actuation inhaler, Inhale 1 puff every4 (four) hours as needed for wheezing, Disp: 1 Inhaler, Rfl: 0 gabapentin (NEURONTIN) 300 mg capsule, Take 1 capsule (300 mg total) by mouth 2 (two) times a day, Disp: 60 capsule, Rfl: 11 senna (SENOKOT) 8.6 mg tablet, Take 1 tablet by mouth 2 (two) times a day as needed for constipation (Patient not taking: Reported on 04/11/2022), Disp: , Rfl: venlafaxine XR (EFFEXOR-XR) 150 mg 24 hr capsule, Take 1 capsule (150 mg total) by mouth daily withbreakfast, Disp: 30 capsule, Rfl: 11 Lab Results Component Value Date POTASSIUM 4.2 08/14/2020 BUNSER 16 08/14/2020 CREATININE 1.10 08/14/2020 CHOL 173 06/29/2017 TRIG 116 06/29/2017 LDL 75 05/23/2015 LDLCALC 84 06/29/2017 HDL 66 06/29/2017 Assessment: Diagnoses and all orders for this visit: Lipid screening (Primary) - POCT lipid panel Coronary artery disease involving agdaagux coronary artery of agdaagux heart without angina pectoris Paroxysmal atrial fibrillation (CMS/HCC) (HCC) Paroxysmal atrial flutter (CMS/HCC) (HCC) Chronic anticoagulation History of mechanical aortic valve replacement Hospital discharge follow-up Plan/Recommendations: She was recently hospitalized for orthostatic hypotension which resolved after getting IV fluid. Onexam today she appears euvolemic. She is had an 11 lb weight gain in 5 months but this does not appear to be fluid retention. She thinks it is because of her diet. I advised her to watch what she is eating to avoid further weight gain which can be stressful on her heart and her bad knees. She previously failed sotalol, then was put on amiodarone, but this was stopped due to concern of toxicity. She has had bradycardia on metoprolol in the past, was changed from metoprolol succinate tometoprolol tartrate. Today her resting heart rate is in the 60s. Continue low-dose metoprolol tartrate 12.5 mg b.i.d.. She has a history of mechanical aortic valve replacement. Valve sounds good on exam today. We will continue periodically transthoracic echo for surveillance. She is on warfarin for anticoagulation and her INR was previously followed by PCP but we are now following it. Continue warfarin and INR checks. Coronary artery disease appears stable and asymptomatic. She is not on aspirin therapy because of her warfarin. She is on atorvastatin. Returning to the office for routine follow-up with Dr. Paredes in 3-4 months.. Call us sooner with questions or concerns. Ana Maria Hess, ANP- Nurse Practitioner with [facility] [facility] Level 5 for amiodarone toxicity monitoring This note is dictated and transcribed using [employer] Direct Software. [employer] variancesmay occur. Despite proofreading, typographical errors may occur. documented in this encounter Plan of Treatment Not on file documented as of this encounter Procedures Procedure Name Priority Date/Time Associated Diagnosis Comments POCT LIPID PANEL Routine 09/18/2022 3:32 PM CDT Lipid screening documented in this encounter Results * POCT lipid panel (09/18/2022 3:32 PM CDT) Cholesterol, POC 266 mg/dL HDL, POC 57 mg/dL Triglycerides, POC 149 mg/dL LDL Cholesterol POC 178 mg/dL Chol/HDL Ratio, POC 3.1 Non-HDL Cholesterol, POC 208 mg/dL Cholesterol Total, POC 266 mg/dL Capillary blood 09/18/2022 3 :32 PM CDT Ana Maria Hess NP POINT OF CARE TEST ORDERA BLES Edited Result - Final documented in this encounter Visit Diagnoses Diagnosis Lipid screening- Primary Screening for lipoid disorders Coronary artery disease involving agdaagux coronary artery of agdaagux heart without angina pectoris Paroxysmal atrial fibrillation (CMS/HCC) (HCC) Atrial fibrillation Paroxysmal atrial flutter (CMS/HCC) (HCC) Chronic anticoagulation Encounter for long-term (current) use of anticoagulants History of mechanical aortic valve replacement Hospital discharge follow-up Other follow-up examination documented in this encounter Discontinued Medications Medication Sig Discontinue Reason Start Date End Da te amiodarone (PACERONE) 100 mg tablet Take 1 tablet (100 mg total) by mouth daily Side effects 09/18/2022 lisinopril (PRINIVIL,ZESTRIL) 2.5 mg tablet Take 1 tablet (2.5 mg total) by mouth daily Discontinued by another clinician 01/27/2019 09/18/2022 metoprolol XL (TOPROL-XL) 25 mg extended release tablet Alternate therapy 09/02/2021 09/18/2022 documented as of this encounter Historical Medications * This list may reflect changes made after this encounter. metoprolol tartrate (LOPRESSOR) 25 mg immediate release tablet Take 0.5 tablets (12.5 mg total) by mouth 2 (two) times a day 07/31/2022 added in this encounter Care Teams Billing Coordinator Relationship Specialty Start Date End Date Sanjeev Webster DO [address] [place] [id number] PCP - General Family Medicine 03/11/21 documented as of this encounter
--- OUTSIDE RECORDS SUMMARY | 2024-03-15 01:55 | XMS_ITS | Encounter Summary ---
Author Organization [facility] Address [address] [place] [address] Care Team Providers Care Veterinarian Helper Name Role Phone Sanjeev Webster DO Primary Care Provide r Reason for Visit * Reason Comments Follow-up 5 mo f/u Atrial Flutter * Cardiology (Routine) - Canceled Specialty Diagnoses / Procedures Referred By Contivett t Referred To Contact Diagnoses H/O mechanical aortic valve replacement Procedures Transthoracic Echo Complete W Doppler/CF Ana Maria Hess NP [address] [facility] [address] [address] Phone: tel: fax: [facility] Medical [facility] Referral ID Status Reason Start Date Expiration Date V isits Requested Visits Authorized [id number] Canceled 03/30/2021 09/27/2021 6 6 Encounter Details Date Type Department Care Team (Latest Contact Info) Description 09/12/2021 11:45 AM CDT Office Visit [facility] Cardiology [address] [facility] [address] [facility] [address] [place] [address] Maurice Paredes MD [address] [facility] [address] [facility] [place] [id number] Coronary artery disease involving moapa coronary artery of moapa heart without angina pectoris (Primary Dx); Paroxysmal atrial flutter (CMS/HCC) (HCC); Paroxysmal atrial fibrillation (CMS/HCC) (HCC); Hyperthyroidism; Prosthetic aortic valve stenosis; Hypertension associated with diabetes (HCC); 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 toxicity with senior living use; Mixed diabetic hyperlipidemia associated with type 2 diabetes mellitus (CMS/HCC) (HCC); Chronic anticoagulation; History of mechanical aortic valve replacement; LBBB (left bundle branch block) Social History Tobacco Use Types Packs/Day Years [...] on file 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 Gender Identity Not on file Sexual Orientation Not on file documented as of this encounter Last Filed Vital Signs Vital Sign Reading Time Taken Comments Blood Pressure 120/56 09/12/2021 11:42 AM CDT Pulse 72 09/12/2021 11:42 AM CDT Temperature - - Respiratory Rate - - Oxygen Saturation 97% 09/12/2021 11: 42 AM CDT Inhaled Oxygen Concentration - - Weight 86.6 kg (190 lb 14.4 oz) 022 11:42 AM CDT Height 165.1 cm (5' 5 ) 09/12/2021 11:4 2 AM CDT Body Mass Index 31.77 09/12/2021 11:42 AM CDT documented in this encounter Progress Notes * Maurice Paredes MD - 09/12/2021 11:45 AM CDT [facility] DATE OF VISIT: 09/12/2021 CHIEF COMPLAINT Chief Complaint Patient presents with ??? Follow-up 5 mo f/u ??? Atrial Flutter HPI Radha Huynh is a 76 y.o. female with a PMHx of mechanical [...] Going to see PCP. 08/12/17 Admitted to [facility] in June due to SOB found to be in A.Fib and started on Diltiazem and Metoprolol. Was discharged still with TORRES then sxs continued to worsen and readmitted to [place] in July. She was started on Sotalol [...] little. She still has not seen a Tank Assembler. Not using CPAP for a year. She later admits she is only taking maybe 4 of her medicines but she is not sure if she is taking Sotalol. 02/08/19 CAT visit: Patient presented to [facility] on 12/17/18 complaint of shortness of [...] this is becoming a little more problematic. ?? 07/31/20 CAT visit - she missed a [...] time for her to take her medicine. ?? 03/11/21 CAT visit- missed appt w/ Dr. [...] She denies chest pain, palpitations or edema. ?? 04/02/21 HFU w/ CAT- she went into [facility] on 03/21/21 with complaint of worsening [...] takes an alprazolam her dyspnea gets better. ?? Records that I personally reviewed on the day of this visit include: (the interpretation is outlined in the HPI above) ?? 03/11/21 office note from myself, 03/21/21 inpatient notes from [facility] including the H&P, consultation note from [...] denies new limitations. On Amiodarone 100mg daily. MEDICAL HISTORY Past Medical History: Diagnosis Date ??? Adiposity Obesity ??? Dementia (HCC) 2020 diagnosed by PCP in 2019 ??? HX OTHER MEDICAL Sleep Apnea, CPAP ??? HX OTHER MEDICAL Diabetes Type II ??? Hypertension Hypertension Social History Tobacco Use ??? Smoking status: Never Smoker ??? Smokeless tobacco: Never Used Substance Use Topics ??? Alcohol use: No ??? Drug use: No Family History Problem Relation Age of Onset ??? Heart attack Father Myocardial Infarction; Cause of [...] per tablet lisinopril (PRINIVIL,ZESTRIL) 2.5 mg tablet omeprazole (PriLOSEC) 20 mg capsule polyethylene glycol (MIRALAX) 17 gram packet senna (SENOKOT) 8.6 mg tablet venlafaxine XR (EFFEXOR-XR) 150 mg 24 hr capsule warfarin (COUMADIN) 6 mg tablet amiodarone (PACERONE) 200 mg tablet metoprolol XL (TOPROL-XL) 25 mg extended release tablet ALLERGIES Allergies Allergen Reactions ??? Bacitracin ??? Benzalkonium ??? Gramicidin D ??? Hydrocortisone ??? Neomycin ??? Polymyxin B ??? Skin Cleanser ??? Neosporin ([id number]) [[id number]] Other (See comments) It makes things worse instead of healing. REVIEW OF SYSTEMS Review of Systems Constitutional: Positive for malaise/fatigue and weight gain. Negative for decreased appetite, diaphoresis, fever, night sweats and weight loss. HENT: Negative for hearing loss and nosebleeds. Eyes: Negative for blurred vision and pain. Cardiovascular: Positive for dyspnea on exertion and leg swelling. Negative for chest pain, claudication, irregular heartbeat, near-syncope, orthopnea, palpitations and syncope. Respiratory: Negative [...] Negative for dysuria, hematuria and nocturia. Neurological: Negative for excessive daytime sleepiness, dizziness, focal weakness, headaches, light-headedness, loss of balance and weakness. Psychiatric/Behavioral: Negative for altered mental status, depression and memory loss. The patientis not nervous/anxious. Allergic/Immunologic: Negative for environmental allergies. PHYSICAL EXAM Vitals BP 120/56 (BP Location: Left arm, Patient Position: Sitting) Pulse 72 Ht 165.1 cm (5' 5 ) Wt 86.6 kg (190 lb 14.4 oz) SpO2 97% BMI 31.77 kg/m?? Weight: 86.6 kg (190 lb 14.4 oz) Height: 165.1 cm (5' 5 ) Body mass index is 31.77 kg/m??. Physical Exam Vitals reviewed. Constitutional: General: [...] Normal rate and regular rhythm. Pulses: Normal pulses and intact distal pulses. Heart sounds: S1 normal and S2 normal. Heart sounds not distant. Murmur heard. Medium-pitched early systolic murmur is present with a grade of 2/6. [place] metallic S2 No friction rub. No gallop. [...] visit. Latest known visit with results is: Anticoagulation Visit on 03/27/2021 Component Date Value Ref Range Status ??? INR 03/25/2021 2.80 (A) 0.9 - 1.1 Final Results for orders placed or performed in visit on 03/27/21 Protime-INR Result Value Ref Range INR 2.80 (A) 0.9 - 1.1 10/19/2018 2D Echocardiogram: Conclusions: Normal left ventricular [...] is normal. Atrial fibrillation. Possible old anterior SD. Negative EKG portion of stress test. Personally reviewed EKG, Echocardiogram, stress test, and bloodwork/lipids and hospital records from [facility] 06/2017 and [facility] 07/2017. ASSESSMENT Diagnoses and all orders for this visit: Coronary artery disease involving moapa coronary artery of moapa heart without angina pectoris (Primary) Paroxysmal atrial flutter (CMS/HCC) (HCC) Paroxysmal atrial fibrillation (CMS/HCC) (HCC) Hyperthyroidism Prosthetic aortic valve stenosis Hypertension associated with diabetes (HCC) 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 toxicity with long filler cigar roller machine use Mixed diabetic hyperlipidemia associated with type 2 diabetes mellitus (CMS/HCC) (HCC) Chronic anticoagulation History of mechanical aortic valve replacement LBBB (left bundle branch block) PLAN/RECOMMENDATIONS 1. BP controlled, goal <130/80mmHg. Monitor BP on routine basis. Call with readings. Continue consistent cardiovascular exercise, weight loss, medication compliance, and low-sodium diet. -Stay hydrated, ambulate with caution. 2. Lifestyle modification counseling performed. Weight loss, [...] not resumed CPAP. 7. Personally reviewed lipids 01/12/20 LDL 99, not ideally controlled. Continue Atorvastatin for now. 8. Compared Echo 2014 and 05/2016 and 10/2018 mild increase in velocities but stable. Trivial AI. Will continue to monitor closely. -Repeat 2D Echo after next visit. 9. Stable, A. flutter controlled, failed ALFRED/CV 01/2019. Continue current medical therapy and systemic anticoagulation for stroke risk reduction. CHADS2 Vasc score 3-4. -Sotalol stopped, Amiodarone started. -h/o bradycardia on Metoprolol and Amiodarone but stable on Toprol XL 25mg daily. 10. Amiodarone toxicity counseling performed. Risks including but not limited to the eyes (amiodarone deposition), thyroid (hyper-hypothyroidism), lungs (pulmonary toxicity) and need for yearly PFTs,eye exams, CXR, TSH, and routine blood work including LFT's discussed. Precautions with regard to possible photosensitivity while taking Amiodarone discussed. Notify office if unusual or progressive SOB or changes in vision are noted. -Advised to stop Amiodarone 100mg daily (half 200mg tablet daily) given toxicity concerns. -Concern for tachy-amber and possible need for PPM if symptomatic amber and or tachyarrhythmia. Mayneed to hold Amiodarone if amber persist but stable at present. -Discussed concerns re thyroid abnormalities but has testing scheduled for tomorrow. TSH 08/2021 quite low which is new 0.06, normal 05/2021. Unclear if Amio related but cannot exclude. Workup underwayfrom her PCP. Will review when available. -Needs PFT's but as we are stopping Amiodarone will hold off. -Prefer to stop Amiodarone but AF recurrence very likely. She understands and accepts risk. -Instructions written down for patient. Call with any questions or concerns. -[facility] 2002 with minimal luminal irregularities.12/2018 Lexiscan possible old anterior SD EF 62%. Over 50% of this visit counseling mechanical aortic valve, HTN, lipids, medications, lifestyle modification. Follow up in the office in 2 months or sooner as needed. Thank you for allowing me the privilege of participating in the care this very pleasant patient. Please do not hesitate to contact me with any additional questions or concerns. Dilma Paredes MD, [facility] documented in this encounter Miscellaneous Notes * Addendum Note - Diana Shi MA - 09/12/2021 11:45 AM CDTAddended by: DIANA SHI on: 09/12/2021 12:49 PM Modules accepted: Orders documented in this encounter Plan of Treatment Not on file documented as of this encounter Procedures Procedure Name Priority Date/Time Associated Diagnosis Comments POCT LIPID PANEL Routine 09/12/2021 12:4 7 PM CDT Mixed diabetic hyperlipidemia associated with type 2 diabetes mellitus (CMS/HCC) (HCC) documented in this encounter Results * POCT lipid panel (09/12/2021 12:47 PM CDT) Cholesterol, POC 165 mg/dL Comment:GLU = 137 HDL, POC 55 mg/dL Triglycerides, POC 100 mg/dL LDL Cholesterol POC 90 mg/dL Chol/HDL Ratio, POC 3.0 Non-HDL Cholesterol, POC 110 mg/dL Cholesterol Total, POC 165 mg/dL Capillary blood 09/12/2021 1 2:47 PM CDT us Maurice Paredes MD POINT OF CARE TEST ORDER AIXA Final Result documented in this encounter Visit Diagnoses Diagnosis Coronary artery disease involving moapa coronary artery of moapa heart without angina pectoris- Primary Paroxysmal atrial flutter (CMS/HCC) (HCC) Paroxysmal atrial fibrillation (CMS/HCC) (HCC) Atrial fibrillation Hyperthyroidism Thyrotoxicosis without mention of goiter or other cause, without mention of thyrotoxic crisis or storm Prosthetic aortic valve stenosis Hypertension associated with diabetes (HCC) Unspecified essential hypertension 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 toxicity with long filler cigar roller machine use Mixed diabetic hyperlipidemia associated with type 2 diabetes mellitus (HCC) Chronic anticoagulation Encounter for long-term (current) use of anticoagulants History of mechanical aortic valve replacement LBBB (left bundle branch block) Other left bundle branch block documented in this encounter Discontinued Medications Medication Sig Discontinue Reason Start Date End Da te amiodarone (PACERONE) 200 mg tablet Take 1/2 (one-half) tablet by mouth once daily 07/22/2021 09/12/2021 documented as of this encounter Historical Medications * This list may reflect changes made after this encounter. Medication Sig Dispense Quantity Refills Last Filled Start D ate End Date metoprolol XL (TOPROL-XL) 25 mg extended release tablet 09/02/2021 09/18/2022 added in this encounter Care Teams Veterinarian Helper Relationship Specialty Start Date End Date Sanjeev Webster DO [address] [place] [id number] PCP - General Family Medicine 03/11/21 documented as of this encounter
--- OUTSIDE RECORDS SUMMARY | 2024-03-15 01:55 | XMS_ITS | Continuity of Care Document ---
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 Name Role Phone Kiersten Pugh NP Unavailable [...] INC PLATELETS AND DIFFERENTIAL COMPREHEN METABOLIC PANEL [facility] 0 BRAIN NATRIURETIC PEPTIDE (BNP) 020 PROTHROMBIN TIME W/INR (PROTIME,PT) ROUTINE VENIPUNCTURE OFFICE FVKSF-RJS-SYFUDFHI BODY MASS INDEX DOCD SYST BP LT 130 MM HG DIAST BP < 80 MM HG CBC, INC PLATELETS AND DIFFERENTIAL COMPREHEN METABOLIC PANEL CMP 0 FERRITIN LEVEL IRON (FE), TOTAL TIBC, & % SATURATION PROTHROMBIN TIME W/INR (PROTIME,PT) ROUTINE VENIPUNCTURE OFFICE [id number]-HLO-[id number] BODY MASS INDEX DOCD SYST BP LT 130 MM HG DIAST BP < 80 MM HG Pt inelig neg scrn depres CBC, INC PLATELETS AND DIFFERENTIAL COMPREHEN METABOLIC PANEL CMP 0 FERRITIN LEVEL PROTHROMBIN TIME W/INR (PROTIME,PT) ROUTINE VENIPUNCTURE MICROALBUMIN, QN (URINE) CREATININE, (U-R) OFFICE [id number]-HDW-[id number] BODY MASS INDEX DOCD SYST BP GE [...] screen annual Clin depression screen doc OFFICE [id number]-WLN-[id number] PROTIME (PT) - OFFICE LAB ONLY 20 [...] STICK-COLLECTION OF CAPIL MIRIAM BLOOD SPECIMEN OFFICE PVALL-SST-CZVKQYDM BODY MASS INDEX DOCD SYST BP >= 140 MM HG6 IT DIAST BP < 80 MM HG Pt inelig neg scrn depres CBC, INC PLATELETS AND DIFFERENTIAL COMPREHEN METABOLIC PANEL CMP 0 HEMOGLOBIN A1C HGA1C, GLYCO PROTHROMBIN TIME W/INR (PROTIME,PT) VITAMIN B12 (SERUM) ROUTINE VENIPUNCTURE OFFICE [id number]-WTQ-[id number] BODY MASS INDEX DOCD SYST BP LT [...] MED MERGE DSCHRG MED/CURRENT MED MERGE OFFICE [id number]-VZU-PCAYNHJC BODY MASS INDEX DOCD SYST BP LT [...] (SERUM) VITAMIN D, 25-HYDROXY ROUTINE VENIPUNCTURE OFFICE XVPUV-OBS-GGYWSWZH BODY MASS INDEX DOCD SYST BP LT 130 MM HG DIAST BP < 80 MM HG PROTIME (PT) - OFFICE LAB ONLY 19 FINGER OR HEEL STICK-COLLECTION OF CAPIL MIRIAM BLOOD SPECIMEN OFFICE GXNCX-SEH-WYKXESGY BODY MASS INDEX DOCD SYST BP LT 130 MM HG DIAST BP < 80 MM HG PROTIME (PT) - OFFICE LAB ONLY 19 FINGER OR HEEL STICK-COLLECTION OF CAPIL MIRIAM BLOOD SPECIMEN OFFICE EEQGY-LPK-BYZUDJCZ BODY MASS INDEX DOCD SYST BP LT 130 MM HG DIAST BP < 80 MM HG PROTIME (PT) - OFFICE LAB ONLY 19 FINGER OR HEEL STICK-COLLECTION OF CAPIL MIRIAM BLOOD SPECIMEN Advance Directives Directive Yes / No Effective Date File Name No Information Encounters Encounter Description Practice Location Reason(s) For Visit Diagnoses Date Provider Providers Copied on Encounter [facility], [address], [place], [place], [address] , tel: [phone] [facility] No Information 1 Keaton Burch. [facility] [place], [address], [place]. [phone] [employer], [address], [place], [place], [address] , tel: [phone] [facility] No Information 0 1 Christi Hayes. [address] [place], [place], [address], [place]. [phone] OFFICE UGINE-YJB-JZA LUIS [facility], [address], [place], [place], [address] , tel:[phone] [facility] Chronic Conditions (chief complaint) Hypertensive [...] onic obstructive airway disease 0 Keaton Burch. [address] [place] [address], [address], . tel:[phone] Referring Provider: Natalee Mcghee, [address] [place] [address], [address] . tel:[phone] [facility], [address], [place], [place], [address] , tel:[phone] [facility] No Information 0 Yara Albright. [address] [place] [address], [id number], . tel:[phone] OFFICE PGWPA-CWQ-AMA [facility], [address], [place], [place], [address] , tel:[phone] [facility] Chronic Conditions (chief complaint) Body [...] peripheral angiopathy without gangrene 0 Kena Dawson. [address] [place] [address], [id number], . tel:[phone] Referring Provider: Natalee Mcghee, [address] [place] [address], [address] . tel:[phone] [facility], [address], [place], [place], [address] , tel: [phone] [facility] Unspecified atrial flutterEssenti al (primary) hypertension Payam-2 0 Yara Albright. [address] [place] [address], [id number], [place]. tel:[phone] [facility], [address], [place], [place], [address] , tel: [phone] Care Management No Information Payam-0 0 Yara Albright. [address] [place] [address], [id number], . tel:[phone] OFFICE YQODW-TWQ-MZM [facility], [address], [place], [place], [address] , [place] tel: [phone] [facility] Chronic Conditions (chief complaint) Iron [...] angiopathy without gangrene Payam-0 0 Yara Albright. [address] [place] [address], [id number], [place]. tel:[phone] Referring Provider: Natalee Mcghee, [address] [place] [address], [address] . tel:[phone] OFFICE SSICA-KWG-ESY [facility], [address], [place], [place], [address] , [place] tel: [phone] [facility] Chronic Conditions (chief complaint) Presence [...] yosteoarthriti s, unspecified July-0 0 Yara Albright. [address] [place] [address], [id number], . tel:[phone] Referring Provider: Natalee Mcghee, [address] [place] [address], [address] . tel:[phone] [facility], [address], [place], [place], [address] , tel: [phone] [facility] Presence of prosthetic heart valveMild cognitive impairmentLong term (current) use of anticoagulants Jun- 0 Gallo Pitts. [address] [facility], [address], [place], [address], [place]. tel:[phone] Referring Provider: Hong Holder, [address] [facility] [address], [place], [address] . tel:[phone] [facility], [address], [place], [place], [address] , tel: [phone] [facility] Hypertensive heart disease with heart failure Jun-2 0 Gallo Pitts. [address] [facility], [address], [place], [address], [place]. [phone] [facility], [address], [place], [place], [address] , tel: [phone] [facility] Presence of prosthetic heart valveLong term (current) use of anticoagulants Apr-2 2-202 0 Gallo Pitts. [address], [address], [place], [address], . tel:[phone] Referring Provider: Hong Holder, [address], [place], [address] . tel:[phone] [facility], [address], [place], [place], [address] , tel: [phone] [facility] No Information 0 Gallo Pitts. [address], [address], [place], [address], . tel:[phone] [facility], [address], [place], [place], [address] , tel: [phone] [facility] Presence of prosthetic heart valveLong term (current) use of anticoagulants 0 Gallo Pitts. [address], [address], [place], [address], [place]. [phone] Referring Provider: Hong Holder, [address], [address] . tel:[phone] [facility] [address], [place], [place], [address] , tel: [phone] [facility] Presence of prosthetic heart valveLong term (current) use of anticoagulants 0 Gallo Pitts. [address], [address], [place], [address], [place]. tel:[phone] Referring Provider: oHng Holder, [address], [place], [address] . tel:[phone] [facility], [address], [place], [place], [address] , tel: [phone] [facility] Nurse Visit (chief complaint) Presence of prosthetic heart valveLong term (current) use of anticoagulants 0 Gallo Pitts. [address], [address], [place], [place], [address], [place]. tel:[phone] Referring Provider: Hong Holder, [address], [place], [address] . tel:[phone] OFFICE GYRFX-BPU-XPM ANDED [facility], [address], [place], [place], [address] , tel: [phone] [facility] Sick (chief complaint)C hronic Conditions (chief complaint) Respiratory illnessEssenti al (primary) hypertension 0 0 Gallo Pitts. [address] [employer] , [address], [place], [place], [address], [place]. tel:[phone] Referring Provider: Hong Holder, [address], [place], [address] . tel:[phone] [facility], [address], [place], [place], [address] , tel: [phone] [facility] DizzinessNumbn essSyncope, unspecified syncope type 0 Gallo Pitts. [address] [facility] , [address], [place], [place], [address], [place]. tel:[phone] OFFICE FWCPQ-HZF-YJY LUIS [facility], [address], [place], [place], [address] , tel: [phone] [facility] 3 month (chief complaint)C hronic Conditions (chief complaint) Body mass index (BMI) 31.0-31.9, adultPre-synco peChronic obstructive airway diseasePrimary hyperparathyro idismHypertens julien heart disease with heart failureArterio sclerosis of soboba arteries of extremityType 2 diabetes mellitus with diabetic polyneuropathy Vitamin B12 deficiencyChro kaushik diastolic (congestive) heart failureAtheros clerosis of aortaMajor depressive disorder, single episode, in partial remissionParox ysmal atrial fibrillation 0 Gallo Pitts. [address] [employer] , [address], [place], [place], [address], [place]. tel:[phone] Referring Provider: Hong Holder, [address], [address] . tel:[phone] [facility] [address], [place], [place], [address] , tel: [phone] [facility] Presence of prosthetic heart valveLong term (current) use of anticoagulants 0 Gallo Pitts. [address] , [address], [place], [address], . tel:[phone] Referring Provider: Hong Holder, [address], [place], [address] . tel:[phone] [facility] [address], [place], [place], [address] , tel: [phone] [facility] Presence of prosthetic heart valveLong term (current) use of anticoagulants Gallo Pitts. [address] , [address], [address], [place]. tel:[phone] Referring Provider: Hong Holder, [address], [address] . tel:[phone] [facility] [address], [place], [address] , tel: [phone] Care Management Atrial fibrillation, unspecified type Gallo Pitts. [address] , [address], [place], [address], [place]. tel:[phone] Transitional Care- First 7 Days Of Discharge [facility] [address], [place], [place], [address] , tel: [phone] [facility] Hospital F/U (chief complaint) Body mass index (BMI) 32.0-32.9, adultAcute frontal sinusitis, recurrence not specifiedAtria l fibrillation, unspecified typeH/O prosthetic heart valve Gallo Pitts. [address] , [address], [place], [address], [place]. tel:[phone] Referring Provider: Hong Holder, [address], [address] . tel:[phone] [facility], [address], [place], [place], [address] , tel: [phone] Care Management No Information Gallo Pitts. [address], [address], [place], [address], [place]. [phone] Referring Provider: Hong Holder, [address], [address] . tel:[phone] [facility], [address], [place], [place], [address] , tel: [phone] Care Management Chronic obstructive airway disease Dec- Gallo Pitts. [address], [address], [place], [address], [place]. [phone] Referring Provider: Hong Holder, [address], [address] . tel:[phone] OFFICE AQZEG-SII-VRT LUIS [facility], [address], [place], [place], [address] , tel: [phone] [facility] Hospital Follow Up (chief complaint) Obstructive sleep apnea (adult) (pediatric)Mem ory lossAdferrisce care planningCerebr al atherosclerosi sMild cognitive impairment Dec- 9 Gallo Pitts. [address], [address], [place], [address], [place]. [phone] Referring Provider: Hong Holder, [address], [address] . tel:[phone] [facility], [address], [place], [place], [address] , tel: [phone] [facility] Presence of prosthetic heart valveLong term (current) use of anticoagulants Gallo Pitts. [address] , [address], [place], [place], [address], [place]. tel:[phone] Referring Provider: Hong Holder, [address], [place], [address] . tel:[phone] [facility], [address], [place], [place], [address] , tel: [phone] Care Management Presence of prosthetic heart valveLong term (current) use of anticoagulants Gallo Pitts. [address] , [address], [place], [address], [place]. tel:[phone] Referring Provider: Hong Holder, [address], [place], [address] . tel:[phone] OFFICE MDWMF-QQO-IGF LUIS [facility], [address], [place], [place], [address] , tel: [phone] [facility] 3 month follow up (chief complaint)C hronic Conditions (chief complaint) Benign neoplasm of parathyroid glandVitamin B12 deficiencyIron deficiency anemia, unspecifiedAcu te pain of left shoulder Gallo Pitts. [address], [address], [place], [place], [address], [place]. tel:[phone] Referring Provider: Hong Holder, [address], [place], [address] . tel:[phone] [facility], [address], [place], [place], [address] , [place] tel: [phone] [facility] Presence of prosthetic heart valveLong term (current) use of anticoagulants Gallo Pitts. [address] , [address], [place], [place], [address], [place]. tel:[phone] Referring Provider: Hong Holder, [address], [address] . tel:[phone] [facility], [address], [place], [place], [address] , [place] tel: [phone] [facility] Chest pain, unspecified Gallo Pitts. [address] , [address], [place], [place], [address], [place]. tel:[phone] OFFICE REYCT-ORI-OWI [facility], [address], [place], [place], [address] , [place] tel: [phone] Care Management SOB , DSOUZA and Weight Gain (chief complaint)C hronic Conditions (chief complaint) Body mass index (BMI) 31.0-31.9, adultNonintrac table headache, unspecified chronicity pattern, unspecified headache typeFinger swellingChroni c obstructive airway disease Gallo Pitts. [address] , [address], [place], [place], [address], [place]. tel:[phone] Referring Provider: Hong Holder, [address], [place], [address] . tel:[phone] OFFICE IEPYQ-XEH-GJG [facility], [address], [place], [place], [address] , [place] tel: [phone] [facility] pain (chief complaint) Primary hyperparathyro idismBody mass index (BMI) 32.0-32.9, adultTrochante tessa bursitis of right hipRotator cuff arthropathy of left shoulder Gallo Pitts. [address] , [address], [place], [place], [address], [place]. tel:[phone] Referring Provider: Hong Holder, [address] [employer] [address], [place], [address] . tel:[phone] [facility], [address], [place], [place], [address] , tel: [phone] [facility] Presence of prosthetic heart valveLong term (current) use of anticoagulants Gallo Pitts. [address] , [address], [place], [place], [address], . tel:[phone] Referring Provider: Hong Holder, [address] [facility] [address], [place], [address] . tel:[phone] [facility], [address], [place], [place], [address] , tel: [phone] [facility] Chronic Conditions (chief complaint)h eadache (chief complaint)r t thumb frx (chief complaint) Paroxysmal atrial fibrillationCh ronic diastolic (congestive) heart failureHyperte nsive heart disease with heart failureHyperli pidemia, unspecifiedArt eriosclerosis of soboba arteries of extremityMajor depressive disorder, single episode, in partial remissionGastr o-esophageal reflux disease without esophagitisTyp e 2 diabetes mellitus with diabetic polyneuropathy Atherosclerosi s of aortaBody mass index (BMI) 32.0-32.9, adultDysphagia , unspecifiedTen niko headacheOther nonthrombocyto penic purpuraClosed nondisplaced fracture of distal phalanx of right thumb with routine healing, subsequent encounter Gallo Pitts. [address] [facility], [address], [place], [place], [address], . tel:[phone] Referring Provider: Hong Holder, [address] [facility] [address], [place], [address] . tel:[phone] [facility], [address], [place], [place], [address] , tel: [phone] [facility] Presence of prosthetic heart valveLong term (current) use of anticoagulants Gallo Pitts. [address] [facility], [address], [place], [address], [place]. tel:[phone] Referring Provider: Hong Holder, [address] [facility] [address], [place], [address] . tel:[phone] [facility], [address], [place], [place], [address] , tel: [phone] [facility] Sprain of right thumb, unspecified site of finger, initial encounterPrese nce of prosthetic heart valveLong term (current) use of anticoagulants Gallo Pitts. [address] , [address], [place], [place], [address], . tel:[phone] Referring Provider: Hong Holder, [address], [place], [address] . tel:[phone] [employer], [address], [place], [place], [address] , [place] tel: [phone] [facility] Encounter for exam of blood pressure w/o abnormal findingsPresen ce of prosthetic heart valveLong term (current) use of anticoagulants Gallo Pitts. [address] , [address], [place], [place], [address], [place]. tel:[phone] Referring Provider: Hong Holder, [address], [place], [address] . tel:[phone] [facility], [address], [place], [place], [address] , [place] tel: [phone] [facility] Chronic obstructive airway disease Gallo Pitts. [address] , [address], [place], [address], [place]. tel:[phone] Referring Provider: Hong Holder, [address], [place], [address] . tel:[phone] [employer] [facility], [address], [place], [place], [address] , [place] tel: [phone] [facility] Lung diseaseHyperte nsive heart disease with heart failureDysphag ia, unspecifiedRig ht foot pain 9 Gallo Pitts. [address], [address], [place], [address], [place]. tel:[phone] Referring Provider: Hong Holder, [address], [place], [address] . tel:[phone] [employer] [facility], [address], [place], [place], [address] , tel: [phone] [facility] Abnormal PFT 9 Gallo Pitts. [address] [facility], [address], [place], [place], [address], [place]. tel:[phone] [employer] [facility], [address], [place], [place], [address] , tel: [phone] [facility] Presence of prosthetic heart valveLong term (current) use of anticoagulants Gallo Pitts. [address] [facility], [address], [place], [place], [address], [place]. tel:[phone] Referring Provider: Hong Holder, [address] [facility] [address], [place], [address] . tel:[phone] [employer] [facility], [address], [place], [place], [address] , tel: [phone] [facility] Paroxysmal atrial fibrillationAg e-related osteoporosis without current pathological fractureMorbid (severe) obesity due to excess caloriesChroni c diastolic (congestive) heart failureHyperte nsive heart disease with heart failureHyperli pidemia, unspecifiedTyp e 2 diabetes mellitus with diabetic peripheral angiopathy without gangreneMajor depressive disorder, single episode, in partial remissionArter iosclerosis of soboba arteries of extremityGastr o-esophageal reflux disease without esophagitisTyp e 2 diabetes mellitus with diabetic polyneuropathy Atherosclerosi s of aortaPresence of prosthetic heart valve Gallo Pitts. [address] [facility], [address], [place], [place], [address], . tel:[phone] [employer] [facility], [address], [place], [place], [address] , tel: [phone] [facility] SOB (shortness of breath) on exertion Gallo Pitts. [address] , [address], [place], [place], [address], [place]. tel:[phone] [facility], [address], [place], [place], [address] , tel: [phone] [facility] Presence of prosthetic heart valveLong term (current) use of anticoagulants 9 Gallo Pitts. [address] , [address], [place], [address], [place]. tel:[phone] Referring Provider: Hong Holder, [address] [facility] [address], [place], [address] . tel:[phone] [facility], [address], [place], [place], [address] , tel: [phone] [facility] Acute pain of left shoulder 9 Gallo Pitts. [address] , [address], [place], [address], [place]. tel:[phone] [employer], [address], [place], [place], [address] , [place] tel: [phone] [facility] Acute pain of left shoulderFall, subsequent encounterCoccy dynia 9 Gallo Pitts. [address] , [address], [place], [place], [address], [place]. tel:[phone] Referring Provider: Hong Holder, [address] [facility] [address], [place], [address] . tel:[phone] [facility], [address], [place], [place], [address] , [place] tel: [phone] [facility] Obstructive sleep apneaShortness of breath 8 Gallo Pitts. [address] , [address], [place], [address], [place]. tel:[phone] Referring Provider: Hong Holder, [address] [facility] [address], [place], [address] . tel:[phone] [facility], [address], [place], [place], [address] , tel: [phone] [facility] Presence of prosthetic heart valveLong term (current) use of anticoagulants 8 Gallo Pitts. [address] [facility], [address], [place], [address], [place]. tel:[phone] Referring Provider: Hong Holder, [address] [facility] [address], [place], [address] . tel:[phone] [facility], [address], [place], [place], [address] , tel: [phone] [facility] Paroxysmal atrial fibrillationAg e-related osteoporosis without current pathological fractureBenign neoplasm of parathyroid gland Gallo Pitts. [address] [employer] , [address], [place], [address], . tel:[phone] Referring Provider: Hong Holder, [address] [facility] [address], [place], [address] . tel:[phone] [facility], [address], [place], [place], [address] , tel: [phone] [facility] Presence of prosthetic heart valveLong term (current) use of anticoagulants Gallo Pitts. [address] [facility], [address], [place], [address], [place]. tel:[phone] Referring Provider: Hong Holder, [address], [place], [address] . tel:[phone] [facility], [address], [place], [place], [address] , tel: [phone] [facility] Anemia, unspecifiedPre sence of prosthetic heart valveLong term (current) use of anticoagulants Diverticulitis 8 Gallo Pitts. [address] [facility], [address], [place], [address], [place]. tel:[phone] Referring Provider: Hong Holder, [address], [place], [address] . tel:[phone] [facility], [address], [place], [place], [address] , [place] tel: [phone] [facility] Lower abdominal painDiarrhea, unspecified type 8 Gallo Pitts. [address], [address], [place], [place], [address], [place]. tel:[phone] [facility], [address], [place], [place], [address] , [place] tel: [phone] [facility] Anemia, unspecifiedDiv erticulitis 8 Gallo Pitts. [address], [address], [place], [place], [address], [place]. tel:[phone] [facility], [address], [place], [place], [address] , [place] tel: [phone] [facility] Diverticulitis 8 Gallo Pitts. [address] [facility] [address], [address], [place], [place], [address], [place]. tel:[phone] Referring Provider: Hong Holder, [address] [facility] [address], [place], [address] . tel:[phone] [facility], [address], [place], [place], [address] , [place] tel: [phone] [facility] Wedge compression fracture of unsp thor vertebra, sequelaDiverti culitis 8 Gallo Pitts. [address] [facility] [address], [address], [place], [place], [address], [place]. tel:[phone] Referring Provider: Hong Holder, [address] [facility] [address], [place], [address] . tel:[phone] [facility], [address], [place], [place], [address] , [place] tel: [phone] [facility] Chronic diastolic (congestive) heart failureUnspeci fied atrial flutterMorbid (severe) obesity due to excess caloriesWedge compression fracture of unsp thor vertebra, sequela Gallo Pitts. [address] , [address], [place], [address], [place]. tel:[phone] Referring Provider: Hong Holder, [address] [facility] [address], [place], [address] . tel:[phone] [facility], [address], [place], [place], [address] , [place] tel: [phone] [facility] Presence of prosthetic heart valveLong term (current) use of anticoagulants Gallo Pitts. [address] , [address], [place], [address], [place]. tel:[phone] Referring Provider: Hong Holder, [address] [facility] [address], [place], [address] . tel:[phone] [facility], [address], [place], [place], [address] , [place] tel: [phone] [facility] Vitamin B12 deficiencyPres ence of prosthetic heart valveLong term (current) use of anticoagulants Gallo Pitts. [address] , [address], [place], [address], [place]. tel:[phone] Referring Provider: Hong Holder, [address] [facility] [address], [place], [address] . tel:[phone] [facility], [address], [place], [place], [address] , [place] tel: [phone] [facility] No Information Gallo Pitts. [address] , [address], [address], [place]. tel:[phone] [facility], [address], [place], [place], [address] , [place] tel: [phone] [facility] Vitamin B12 deficiency Aug-0 Gallo Pitts. [address], [address], [place], [address], . tel:[phone] Referring Provider: Hong Holder, [address], [place], [address] . tel:[phone] [facility], [address], [place], [place], [address] , tel: [phone] [facility] Presence of prosthetic heart valveLong term (current) use of anticoagulants Anemia, unspecified July- Gallo Pitts. [address], [address], [address], . tel:[phone] Referring Provider: Hong Holder, [address], [address] . tel:[phone] [facility], [address], [place], [place], [address] , tel: [phone] [facility] Hypertensive heart disease with heart failureAnemia, unspecified Gallo Pitts. [address], [address], [place], [address], [place]. tel:[phone] Referring Provider: Hong Holder, [address], [place], [address] . tel:[phone] [facility], [address], [place], [place], [address] , tel: [phone] [facility] Presence of prosthetic heart valveLong term (current) use of anticoagulants Gallo Pitts. [address], [address], [address], [place]. tel:[phone] Referring Provider: Hong Holder, [address], [place], [address] . tel:[phone] [facility], [address], [place], [place], [address] , tel: [phone] [facility] Presence of prosthetic heart valveLong term (current) use of anticoagulants 8 Gallo Pitts. [address] [facility], [address], [place], [place], [address], [place]. tel:[phone] Referring Provider: Hong Holder, [address] [facility] [address], [place], [address] . tel:[phone] [facility], [address], [place], [place], [address] , tel: [phone] [facility] Lumbar spondylosisSho rtness of breath 8 Gallo Pitts. [address] , [address], [place], [place], [address], [place]. [phone] Referring Provider: Hong Holder, [address], [place], [address] . tel:[phone] [facility], [address], [place], [place], [address] , [place] tel: [phone] [facility] Major depressive disorder, single episode, in partial remissionPrima ry hyperparathyro idismGastro-es ophageal reflux disease without esophagitisCer ebral atherosclerosi sHyperlipidemi a, unspecifiedArt eriosclerosis of soboba arteries of extremityType 2 diabetes mellitus with diabetic peripheral angiopathy without gangreneScreen ing for osteoporosisPa roxysmal atrial fibrillationLo ng term (current) use of anticoagulants Presence of prosthetic heart valvePost-halima pausal 0 8 Gallo Pitts. [address], [address], [place], [place], [address], [place]. [phone] Referring Provider: Hong Holder, [address], [place], [address] . tel:[phone] [facility], [address], [place], [place], [address] , tel: [phone] [facility] Presence of prosthetic heart valveLong term (current) use of anticoagulants Jun-2 8 Gallo Pitts. [address] [facility] [address], [address], [address], . tel:[phone] Referring Provider: Hong Holder, [address] [facility] [address], [place], [address] . tel:[phone] [facility], [address], [place], [place], [address] , tel: [phone] [facility] Hypertensive heart disease with heart failure Jun-2 8 Gallo Pitts. [address] [facility] [address], [address], [place], [address], [place]. tel:[phone] Referring Provider: Hong Holder, [address] [facility] [address], [place], [address] . 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 [address] [facility] [address], [address], [address], [place]. tel:[phone] Referring Provider: Hong Holder, [address] [facility] [address], [address] . tel:[phone] [facility], [address], [place], [place], [address] , tel: [phone] [facility] Type 2 diabetes mellitus with diabetic polyneuropathy Body mass index (BMI) 40.0-44.9, adult Mar-0 2- 8 Micha Jaylyn. [address], [address]. tel:[phone] Referring Provider: Hong Holder, [address], [address] . tel:[phone] [facility], [address], [place], [place], [address] , [place] tel: [phone] [facility] Encntr screen mammogram for malignant neoplasm of breast 8 Gallo Pitts. [address], [address], [place], [place], [address], [place]. tel:[phone] [facility], [address], [place], [place], [address] , tel: [phone] [facility] Low back pain 8 Gallo Pitts. [address], [address], [place], [place], [address], [place]. tel:[phone] [facility], [address], [place], [place], [address] , tel: [phone] [facility] Presence of prosthetic heart valveLong term (current) use of anticoagulants Gallo Pitts. [address] , [address], [place], [place], [address], [place]. tel:[phone] Referring Provider: Hong Holder, [address], [place], [address] . 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 [address] , [address], [place], [place], [address], [place]. tel:[phone] Referring Provider: Hong Holder, [address] [facility] [address], [place], [address] . tel:[phone] [facility], [address], [place], [place], [address] , [place] tel: [phone] [facility] Osteoporosis, unspecified osteoporosis type, unspecified pathological fracture presence 8 Demetrius Schilling. [address], [address], [place], [place], [address]. tel:[phone] [facility], [address], [place], [place], [address] , tel: [phone] [facility] Low back painAtheroscle rosis of aortaPolymyalg ia rheumaticaHear t failure, unspecifiedTyp e 2 diabetes mellitus with diabetic polyneuropathy Morbid (severe) obesity due to excess calories Gallo Pitts. [address] [employer] , [address], [place], [place], [address], [place]. tel:[phone] Referring Provider: Hong Holder, [address] [facility] [address], [place], [address] . 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 [address] [facility], [address], [place], [place], [address], [place]. tel:[phone] Referring Provider: Hong Holder, [address] [facility] [address], [place], [address] . tel:[phone] [facility] [address], [place], [place], [address] , tel: [phone] [facility] Presence of prosthetic heart valveLong term (current) use of anticoagulants Gallo Pitts. [address], [address], [place], [place], [address], [place]. tel:[phone] Referring Provider: Hong Holder, [address] [facility] [address], [address] . tel:[phone] [facility] [address], [place], [place], [address] , tel: [phone] [facility] Strain of lumbar region, subsequent encounter Gallo Pitts. [address], [address], [place], [address], . tel:[phone] Referring Provider: Hong Holder, [address], [place], [address] . tel:[phone] [facility] [address], [place], [place], [address] , tel: [phone] [facility] ocean transportation intermediary (current) use of anticoagulants Presence of prosthetic heart valve Gallo Pitts. [address], [address], [place], [address], [place]. tel:[phone] Referring Provider: Hong Holder, [address], [place], [address] . 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 [address], [address], [address], [place]. tel:[phone] Referring Provider: Hong Holder, [address], [address] . tel:[phone] [facility] [address], [place], [place], [address] , tel: [phone] [facility] Polymyalgia rheumaticaHear t failure, unspecifiedArt eriosclerosis of soboba arteries of extremityType 2 diabetes mellitus with diabetic peripheral angiopathy without gangreneAthero sclerosis of aortaMorbid (severe) obesity due to excess caloriesEncntr screen mammogram for malignant neoplasm of breastLong term (current) use of anticoagulants Presence of prosthetic heart valveHyperlipi demia, unspecifiedCer ebral atherosclerosi sGastro-esopha geal reflux disease without esophagitis Gallo Pitts. [address], [address], [address], [place]. tel:[phone] Referring Provider: Hong Holder [address], [address] . tel:[phone] [facility], [address], [place], [place], [address] , tel: [phone] [facility] Knee pain, unspecified chronicity, unspecified laterality 7 Gallo Pitts. [address], [address], [place], [address], [place]. 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 [address], [address], [place], [address], [place]. tel:[phone] Referring Provider: Hong Holder, [address], [place], [address] . tel:[phone] [facility], [address], [place], [place], [address] , [place] tel: [phone] [facility] Iron deficiency anemia, unspecified iron deficiency anemia type Gallo Pitts. [address], [address], [address], [place]. 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 [address], [address], [place], [address], [place]. tel:[phone] Referring Provider: Hong Holder, [address], [address] . tel:[phone] [facility], [address], [place], [place], [address] , [place] tel: [phone] [facility] Iron deficiency anemia, unspecified iron deficiency anemia type Aug- Gallo Pitts. [address], [address], [place], [address], [place]. tel:[phone] [facility], [address], [place], [place], [address] , tel: [phone] [facility] Anemia, unspecified Gallo Pitts. [address], [address], [place], [address], [place]. tel:[phone] Referring Provider: Hong Holder, [address], [place], [address] . tel:[phone] [facility], [address], [place], [place], [address] , [place] tel: [phone] [facility] Presence of prosthetic heart valveLong term current use of anticoagulant therapyAnemia, unspecified Gallo Pitts. [address], [address], [place], [address], [place]. tel:[phone] [facility], [address], [place], [place], [address] , tel: [phone] [facility] Type 2 diabetes mellitus with polyneuropathy Demetrius Schilling. [address], [address], [place], [place], [address]. tel:[phone] [facility], [address], [place], [place], [address] , [place] tel: [phone] [facility] Shortness of breathPolymyal carmen rheumaticaPres ence of prosthetic heart valvePrimary hyperparathyro idismMajor depressive disorder, single episode, in partial remission Gallo Pitts. [address], [address], [place], [place], [address], [place]. tel:[phone] Referring Provider: Hong Holder, [address], [place], [address] . tel:[phone] [facility], [address], [place], [place], [address] , tel: [phone] [facility] Dizziness and giddinessPolym yalgia rheumatica Gallo Pitts. [address], [address], [address], . tel:[phone] Referring Provider: Hong Holder, [address], [place], [address] . tel:[phone] [facility], [address], [place], [place], [address] , tel: [phone] [facility] MyalgiaBilater al shoulder pain, unspecified chronicity Gallo Pitts. [address] , [address], [address], . tel:[phone] Referring Provider: Hong Holder, [address], [place], [address] . tel:[phone] [facility], [address], [place], [place], [address] , tel: [phone] [facility] H/O mechanical aortic valve replacementLon g term current use of anticoagulant therapy Gallo Pitts. [address] , [address], [place], [address], [place]. tel:[phone] Referring Provider: Hong Holder, [address], [place], [address] . tel:[phone] [facility], [address], [place], [place], [address] , tel: [phone] [facility] H/O mechanical aortic valve replacementLon g term current use of anticoagulant therapy Gallo Pitts. [address], [address], [address], [place]. tel:[phone] Referring Provider: Hong Holder, [address], [place], [address] . tel:[phone] [facility] [address], [place], [place], [address] , tel: [phone] [facility] Bilateral arm painBilateral shoulder pain, unspecified chronicity Jun-2 4-201 7 Gallo Pitts. [address], [address], [address], [place]. [phone] Referring Provider: Hong Holder, [address], [place], [address] . tel:[phone] [facility] [address], [place], [place], [address] , tel: [phone] [facility] Bilateral leg cramps Jun-2 0- 7 Gallo Pitts. [address], [address], [address], [place]. tel:[phone] Referring Provider: Hong Holder, [address], [place], [address] . tel:[phone] [facility] [address], [place], [place], [address] , tel: [phone] [facility] H/O mechanical aortic valve replacementLon g term current use of anticoagulant therapy May-3 0-201 7 Gallo Pitts. [address], [address], [address], [place]. [phone] Referring Provider: Hong Holder, [address], [place], [address] . tel:[phone] [facility] [address], [place], [place], [address] , tel: [phone] [facility] H/O mechanical aortic valve replacementLon g term current use of anticoagulant therapy May-2 3-201 7 Gallo Pitts. [address], [place], [address], [place]. [phone] Referring Provider: Hong Holder, [address], [place], [address] . tel:[phone] [facility], [address], [place], [place], [address] , tel: [phone] [facility] H/O mechanical aortic valve replacementLon g term current use of anticoagulant therapy 7 Gallo Pitts. [address], [place], [address], [place]. tel:[phone] Referring Provider: Hong Holder, [address], [place], [address] . tel:[phone] [facility], [address], [place], [place], [address] , [place] tel: [phone] [facility] Neck painH/O mechanical aortic valve replacement 7 Gallo Pitts. [address], [address], [place], [address], [place]. tel:[phone] [facility], [address], [place], [place], [address] , [place] tel: [phone] [facility] Acute non-recurrent sinusitis, unspecified location 7 Gallo Pitts. [address], [address], [place], [address], [place]. tel:[phone] Referring Provider: Hong Holder, [address], [place], [address] . tel:[phone] [facility], [address], [place], [place], [address] , [place] tel: [phone] [facility] H/O mechanical aortic valve replacementLon g term current use of anticoagulant therapy 0 7 Gallo Pitts. [address], [address], [place], [address], [place]. [phone] Referring Provider: Hong Holder, [address], [place], [address] . tel:[phone] [facility], [address], [place], [place], [address] , tel: [phone] [facility] Type 2 diabetes mellitus with polyneuropathy Hammer toe of left footAcute bilateral low back pain without sciatica 7 Gallo Pitts. [address], [address], [place], [address], [place]. tel:[phone] Referring Provider: Hong Holder, [address], [place], [address] . tel:[phone] [facility], [address], [place], [place], [address] , tel: [phone] [facility] Obstructive sleep apnea 0 6 Gallo Pitts. [address] [employer] [address], [place], [address], [place]. tel:[phone] [facility], [address], [place], [place], [address] , tel: [phone] [facility] Major depressive disorder, single episode, in partial remissionH/O mechanical aortic valve replacementTyp e 2 diabetes mellitus with polyneuropathy 6 Gallo Pitts. [address], [address], [place], [place], [address], [place]. tel:[phone] Referring Provider: Hong Holder, [address], [place], [address] . tel:[phone] [facility], [address], [place], [place], [address] , tel: [phone] [facility] Complicated griefDisappear ance and of family memberMajor depressive disorder, single episode, in partial remission 2-201 6 Gallo Pitts. [address], [place], [address], [place]. tel:[phone] [employer], [address], [place], [place], [address] , [place] tel: [phone] [facility] No Information 6 Gallo Pitts. [address] [facility] [address], [address], [place], [place], [address], [place]. tel:[phone] Referring Provider: Maria T Ramon, [address], [place], [address] . tel:[phone] [facility] [employer] [facility], [address], [place], [place], [address] , [place] tel: [phone] [facility] Complicated griefDisappear ance and of family memberNeck pain 6 Gallo Pitts. [address], [place], [address], [place]. tel:[phone] Referring Provider: Hong Holder, [address] [facility] [address], [place], [address] . tel:[phone] [facility], [address], [place], [place], [address] , [place] tel: [phone] [facility] Atherosclerosi s of aorta 6 Gallo Pitts. [address], [place], [address], [place]. tel:[phone] Referring Provider: Hong Holder, [address], [place], [address] . tel:[phone] [facility], [address], [place], [place], [address] , [place] tel: [phone] [facility] Tear of right rotator cuff, unspecified tear extent 6 Gallo Pitts. [address] [employer], [place], [address], [place]. tel:[phone] [facility], [address], [place], [place], [address] , tel: [phone] [facility] Type 2 diabetes mellitus with polyneuropathy Chronic right shoulder pain 3 6 Gallo Pitts. [address] , [address], [place], [place], [address], . tel:[phone] Referring Provider: Hong Holder, [address], [place], [address] . tel:[phone] [facility], [address], [place], [place], [address] , tel: [phone] [facility] H/O mechanical aortic valve replacementLon g term current use of anticoagulant therapy 0 6 Gallo Pitts. [address] [address], [place], [address], . tel:[phone] Referring Provider: Hong Holder, [address], [address] . tel:[phone] [facility], [address], [place], [place], [address] , tel: [phone] [facility] H/O mechanical aortic valve replacementLon g term current use of anticoagulant therapy 6 Gallo Pitts. [address] , [address], [place], [place], [address], . tel:[phone] Referring Provider: Hong Holder, [address], [place], [address] . tel:[phone] [facility], [address], [place], [place], [address] , tel: [phone] [facility] Dyspnea on effort 6 Gallo Pitts. [address], [address], . tel:[phone] [facility], [address], [place], [place], [address] , tel: [phone] [facility] H/O mechanical aortic valve replacementLon g term current use of anticoagulant therapy 3 6 Gallo Pitts. [address], [place], [place], [address], [place]. [phone] Referring Provider: Hong Holder, [address], [place], [address] . tel:[phone] [facility], [address], [place], [place], [address] , [place] tel: [phone] [facility] Neck painBilateral shoulder pain, unspecified chronicityPain in left shoulder 6 Gallo Pitts. [address], [place], [place], [address], [place]. tel:[phone] [facility], [address], [place], [place], [address] , [place] tel: [phone] [facility] H/O mechanical aortic valve replacementLon g term current use of anticoagulant therapy 6 Gallo Pitts. [address], [address], [place]. tel:[phone] Referring Provider: Hong Holder, [address], [place], [address] . tel:[phone] [facility], [address], [place], [place], [address] , [place] tel: [phone] [facility] H/O mechanical aortic valve replacementLon g term current use of anticoagulant therapy 6 Gallo Pitts. [address], [address], [place]. tel:[phone] Referring Provider: Hong Holder, [address], [address] . tel:[phone] [facility], [address], [place], [place], [address] , [place] tel: [phone] [facility] H/O mechanical aortic valve replacementLon g term current use of anticoagulant therapy 6 Gallo Pitts. [address], [place], [place], [address], [place]. tel:[phone] Referring Provider: Hong Holder, [address], [place], [address] . tel:[phone] [facility], [address], [place], [place], [address] , tel: [phone] [facility] Encounter for immunizationNe ck painH/O mechanical aortic valve replacementChr onic kidney disease, stage 1 6 Gallo Pitts. [address], [place], [place], [address], [place]. tel:[phone] Referring Provider: Hong Holder, [address], [place], [address] . tel:[phone] [facility], [address], [place], [place], [address] , [place] tel: [phone] [facility] Chest pain, unspecified 6 Gallo Pitts. [address], [place], [place], [address], [place]. tel:[phone] [facility], [address], [place], [place], [address] , tel: [phone] [facility] H/O mechanical aortic valve replacementLon g term current use of anticoagulant therapy 6 Gallo Pitts. [address], [place], [place], [address], [place]. tel:[phone] [facility], [address], [place], [place], [address] , [place] tel: [phone] [facility] Chronic kidney disease, stage 1Type 2 diabetes mellitus with polyneuropathy Nonintractable headache, unspecified chronicity pattern, unspecified headache type 6 Gallo Pitts. [address], [place], [place], [address], [place]. [phone] Referring Provider: Hong Holder, [address], [place], [address] . tel:[phone] [facility], [address], [place], [place], [address] , tel: [phone] [facility] H/O mechanical aortic valve replacement 6 Gallo Pitts. [address], [place], [place], [address], [place]. tel:[phone] Referring Provider: Hong Holder, [address], [place], [address] . tel:[phone] [facility], [address], [place], [place], [address] , tel: [phone] [facility] Morbid obesity, unspecified obesity typeType 2 diabetes mellitus with stage 1 chronic kidney diseaseChronic kidney disease, stage 1Type 2 diabetes mellitus with polyneuropathy H/O mechanical aortic valve replacementMaj or depressive disorder, single episode, in partial remissionGERD without esophagitisPri valentina osteoarthritis involving multiple joints 6 Gallo Pitts. [address], [place], [address], [place]. tel:[phone] Referring Provider: Hong Holder, [address], [address] . tel:[phone] [facility], [address], [place], [place], [address] , tel: [phone] [facility] Aortic valve replaced 6 Gallo Pitts. [address], [address], [place]. tel:[phone] Referring Provider: Hong Holder, [address], [place], [address] . tel:[phone] [facility], [address], [place], [place], [address] , tel: [phone] [facility] Aortic valve replaced 6 Gallo Pitts. [address], [place], [place], [address], [place]. [phone] Referring Provider: Hong Holder, [address], [place], [address] . tel:[phone] Family History Family Member Type Diagnosis Age [...] er Payers Payer name Insurance type Covered democrat ID Authoriza tion(s) [employer] MB [id number] [employer] HE[employer]ep[employer] [place] [id number] [employer] HEALTH[employer]epager MB [id number] [employer]nov[employer] MB [id number] [employer] MB [id number] [place] MB [id number] [place] MB [id number] [place] MB [id number] Social History Type Description Quantity Date Captured [...] 09/08/2019 ordered Referral Referred To: Home Care [id number] Ordered: Referrals: Home Care. Location: [facility]. Evaluation/diagnostic/treatment - Level 3 ordered Referral Referred To: [address]
[facility] [address] [place], [phone] Ordered: MRI brain wo contrast ordered Referral Referred To: Service CPAP equipment Ordered: Referrals: Service CPAP equipment ordered Referral Referred To: Maurice Paredes [address] [facility] [place]
[facility] [address] [place], [place], [phone] Ordered: Referrals: Cardiology. Maurice Paredes. Evaluation/diagnostic/treatment - Level 3 ordered Referral Referred To: [facility] [place] [address] [place], [phone] Ordered: Modified barium swallow ordered History Of Present Illness Encounter Date Complaint History Of Prese nt Illness Chronic Conditions *See Chronic Conditions HPI Chronic Conditions *See Chronic Conditions HPI Chronic Conditions *See Chronic Conditions HPI Chronic Conditions *See Chronic Conditions HPI Nurse Visit Patient came in office today for BP check. NO changes at this time. Chronic Conditions *See Chronic Conditions HPI Sick Here today not f eeling well x 2 days. Patient complaining of coughing up clear phlegm, sick to her stomach, cough, and not sleeping. No SOB/ wheezing. She thinks she may have a light cold. Chronic Conditions *See Chronic Conditions HPI 3 month During intake th e patient had a spell of a feeling almost like numbness but not quite all over her body. She didn't feel like she was going to faint, she just felt 'weird.' She's been recovering gradually since the intake. Hospital F/U Patient was seen at [facility] due to irregular heartbeat Patient felt [...] Follow Up Patient was t reated at [facility] for atrial fibrillation with RVR and was discharged on December. She saw a assistant manager airside operations in the hospital. She is having progressive memory problems. This has come to the attention of her assistant manager airside operations. She is managing her own affairs. She [...] follow up Here for a [facility] follow [facility]. Patient states her shoulders [...] patient also c/o pain in the right caodaism. she denies jaw claudication. She has no [...] Colace to the pharmacy.Information was provided regarding [id number] benefits through [employer] to help with coverage.Please call the office [...] will check your INR today Related to halfway (current) use of anticoagulants Medication managemen t has significantly improved.We are also happy to hear family is visiting quite often.Continue to use your pill urban and regional planner and call the office with any [...] (congestive) heart failure we monitor this thro [facility] labs. Make sure you are drinking plenty [...] cbc pt/inr to be checked Related to halfway (current) use of anticoagulants labs will be [...] without behavioral disturbance see above Related to halfway (current) use of anticoagulants keep scheduled follo w up with the CardiologistINR checked today and will be managed by our office Related to Presence of prosthetic heart valve we monitor this thro [facility] labs. Make sure you are drinking plenty [...] vascular claudication symptoms. 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 Related to Atrial fibrillation, unspecified type I [...] sister would serve as your power of erisa attorney for nam care decisions. You NEED [...] with atorvastatin. 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 Related t [...]
--- OUTSIDE RECORDS SUMMARY | 2024-03-15 01:55 | XMS_ITS | Encounter Summary ---
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 Will forward to hospital SECTION LEADER as FYI. ER SHEAR OPERATOR * Telephone Encounter - Isamar Green - 03/18/2022 1:[address] Webster nurse called to inform that he was sending the pt to [facility] due to abnormal EKG and a hypertension episode. Cb [phone] ER SHEAR OPERATOR documented in this encounter Plan of Treatment Not on file documented as of this encounter Visit Diagnoses Not on filedocumented in this encounter Care Teams Chemical Lab Supervisor Relationship Specialty Start Date End Date Sanjeev Webster DO [address] [place] [id number] PCP - General Family Medicine 03/11/21 documented as of this encounter
--- OUTSIDE RECORDS SUMMARY | 2024-03-15 01:55 | XMS_ITS | Clinical Summary ---
Author Organization [facility] [address] Address [address] [place] [address] Care Team Providers Care Organ Tuner Name Role Phone Sanjeev Webster DO Primary Care Provide r Allergies Active Allergy Reactions Criticality Noted Date Comments Atorvastatin Muscle pain,Other (See comments) High 08/12/2021 Leg pain/cramps. Resolved after stopping. Bacitracin Benzalkonium Cortisone Rash,Unknown High 08/02/2023 Gramicidin D Hydrocortisone Neomycin Xaecvnil-Upunxbokoi-Nrxpl yxin Other (See comments) Low 07/31/2020 It makes things worse instead of healing. Polymyxin B Rosuvastatin Muscle pain,Other (See comments) Medium 07/10/2022 Cramping in legs Skin Cleanser Medications omeprazole (PriLOSEC) 20 mg capsule Take 1 capsule (20 mg total) by mouth daily Active atorvastatin (LIPITOR) 10 mg tabletIndicatio ns:Hyperlipidem ia associated with type 2 diabetes mellitus (HCC) TAKE 1 TABLET BY MOUTH ONCE DAILY AT BEDTIME 90 tablet 2 0 Active Additional Information Patient not taking.Reported on 02/29/2024 venlafaxine XR (EFFEXOR-XR) 150 mg 24 hr capsuleIndicati ons:major depressive disorder Take 1 capsule (150 mg total) by mouth daily with breakfast 30 capsule 11 1 Active azelastine (ASTELIN) 137 mcg (0.1 %) nasal spray Use in each nostril daily 30 mL 1 Active cholecalciferol , vitamin D3, 1,000 unit tablet,chewable Take 1 tablet/chew tab by mouth daily 1 Active gabapentin (NEURONTIN) 300 mg capsule Take 1 capsule (300 mg total) by mouth 2 (two) times a day 60 capsule 11 1 Active Additional Information Patient taking differently:300 mg oral3 times daily, Reported on 02/29/2024 HYDROcodone-francesca taminophen (NORCO) 10-325 mg per tabletIndicatio ns:Pain Take 2 tablets by mouth every 8 (eight) hours as needed (pain) 30 tablet 1 Active Additional Information Patient not taking.Reported on 02/29/2024 albuterol HFA (PROVENTIL HFA,VENTOLIN HFA,PROAIR HFA) 90 mcg/actuation inhaler Inhale 1 puff every 4 (four) hours as needed for wheezing 1 Inhaler 1 Active warfarin (COUMADIN) 6 mg tabletIndicatio ns:Mechanical Circulatory Support Take 1 tablet (6 mg total) by mouth daily 60 tablet 1 Active acetaminophen (TYLENOL) 325 mg tablet Take 2 tablets (650 mg total) by mouth every 6 (six) hours as needed (pain) 30 tablet 1 Active polyethylene glycol (MIRALAX) 17 gram packetIndicatio ns:constipation Take 1 packet (17 g total) by mouth 2 (two) times a day as needed for constipation 1 Active senna (SENOKOT) 8.6 mg tablet Take 1 tablet by mouth 2 (two) times a day as needed for constipation 1 Active Additional Information Patient not taking.Reported on 02/29/2024 FUROSEMIDE ORAL Take 20 mg by mouth daily Active ALPRAZolam (XANAX) 0.25 mg tablet Take 1 tablet (0.25 mg total) by mouth 2 (two) times a day as needed Active fluticasone propionate (FLONASE) 50 mcg/actuation nasal spray Administer 1 spray into each nostril daily Active ferrous sulfate (iron) 325 mg (65 mg of elemental iron) tabletIndicatio ns:Iron Deficiency Anemia Take 1 tablet (325 mg total) by mouth daily with breakfast Active metoprolol tartrate (LOPRESSOR) 25 mg immediate release tablet Take 0.5 tablets (12.5 mg total) by mouth 2 (two) times a day 3 Active simvastatin (ZOCOR) 10 mg tablet Take 1 tablet (10 mg total) by mouth nightly Active potassium chloride ER 10 mEq CR tablet Take 1 tablet/capsule (10 mEq total) by mouth 2 (two) times a day Active methIMAzole (TAPAZOLE) 5 mg tablet Take 1 tablet (5 mg total) by mouth daily 4 Active semaglutide (OZEMPIC SUBQ) Inject under the skin Active colchicine (COLCRYS) 0.6 mg tablet Day 1: 1.2 mg at the first sign of flare, followed by 0.6 mg after 1 hour. Day 2 and after: take 0.6 mg once daily until resolves 4 Active Active Problems Problem Noted Date Diagnosed Date Hyperthyroidism 09/12/2021 Atrial fibrillation (CMS/HCC) 08/22/2020 Anemia 08/14/2020 Assessment & Plan (08/14/2020 8:07 AM CDT): Continue ferrous sulfate 325 mg daily Peripheral neuropathy 08/14/2020 Assessment & Plan (08/14/2020 8:07 AM CDT): Gabapentin trended mg b.i.d. Depression 08/14/2020 Assessment & Plan (08/14/2020 8:08 AM CDT): Continue venlafaxine 150 mg daily Hypertension associated with diabetes 08/14/2020 Overview (08/14/2020): Blood pressure stable. Continue lisinopril 2.5 mg daily. Monitor blood pressure, adjust meds accordingly Assessment & Plan (08/14/2020 8:09 AM CDT): Blood pressure stable. Continue lisinopril 2.5 mg daily. Monitor blood pressure, adjust meds accordingly Cerebral aneurysm 08/14/2020 Assessment & Plan (08/14/2020 8:16 AM CDT): Patient had stroke-like symptoms for 3 days, felt near syncopal and frontal headaches associated with un stable gait. MRI done showed no acute infarct. Moderate small vessel white matter chronic changes. Neurosurgery consulted. Recommended no intervention. Will continue to monitor 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 toxicity with nursing home u se 05/06/2019 Coronary artery disease invo lving [place] coronary artery of [place] heart without angina pectoris 05/06/2019 Abnormal stress test 05/06/2019 Bradycardia 05/06/2019 LBBB (left bundle branch block) 12/08/2018 Myopathy 02/17/2018 Paroxysmal atrial flutter (CMS/HCC) 08/12/2017 Assessment & Plan (08/14/2020 8:04 AM CDT): Continue amiodarone. 100 mg daily. Follows up with cardiology Dr. Paredes History of mechanical aortic valve replacement 0 03/20/2017 Assessment & Plan (08/14/2020 2:29 PM CDT): History of [facility] mechanical aortic valve, placed into a 2004. On Coumadin 5 mg. Lovenox for bridging. Monitor INR. 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 For past few years has not been using CPAP. Denies any dyspnea overnight. Hypertensive heart disease with congestive heart failure 07/16/2015 Overview (06/13/2016): Diastolic heart failure secondary to hypertension Mixed diabetic hyperlipidemi a associated with type 2 diabetes mellitus (CMS/HCC) 07/16/2015 Overview (06/13/2016): DM type 2 with diabetic dyslipidemia Diabetes mellitus 08/15/2014 Overview (06/13/2016): DM (diabetes mellitus) Assessment & Plan (08/14/2020 8:10 AM CDT): A1c 7.4 in 2018. recheck level. Not on any med. Resolved Problems Problem Noted Date Diagnosed Date Resolved Date Elevated troponin 08/14/2020 08/17/2020 Assessment & Plan (08/14/2020 8:19 AM CDT): Cardiology consulted. Recommended no further cardiac testing. keep the INR 2.5- 3.5 with warfarin HLD (hyperlipidemia) 08/14/2020 022 Assessment & Plan (08/14/2020 8:06 AM CDT): Continue Lipitor 10 mg Admission for aftercare 08/11/202008/07 Encounter for monitoring sotalol therapy 08/12/2017 02/08/2019 Dyspnea on exertion 08/15/2014 08/18/19 21 Overview (06/13/2016): TORRES (dyspnea on exertion) Pre-syncope 08/15/2014 08/17/2020 Overview (06/13/2016): Near syncope Dizziness 08/15/2014 08/17/2020 Overview (06/13/2016): Dizziness History of anticoagulant therapy 08/15/2014 09/12/2021 Overview (06/13/2016): Chronic anticoagulation Encounters Date Type Department Care Team Description 02/29/2024 10:30 AM SAND SCREENER Office Visit [facility] Cardiology [address] [place] [address] Paxton Villela MD from Last 3 Months Surgical History Surgery Date Site/Laterality Comments OTHER SURGICAL HISTORY Valve Replacement [facility] Medical History Medical History Date Comments Hypertension Hypertension Adiposity Obesity Hx Other Medical Sleep Apnea, CP AP Hx Other Medical Diabetes Type I I Dementia (HCC) 2019 diagnosed by PCP in 2019 Family History Medical History Relation Name Comments Heart attack Father 2 Myocardial Infa rction; Cause of : Myocardial Infarction Relation Name Status Comments Father 1 (Age 90) Father 2 Social History Tobacco Use Types Packs/Day Years [...] on file Legal Sex Female 6:10 AM SAND SCREENER Gender Identity Not on file Sexual Orientation Not on file Obstetrics History Last Filed Vital Signs Vital Sign Reading Time Taken Comments Blood Pressure 90/64 02/29/2024 10:36 AM SAND SCREENER Pulse 68 02/29/2024 10:36 AM SAND SCREENER Temperature 36.6 ??C (97.8 ??F) 08/17/2020 12:52 AM C DT Respiratory Rate 20 08/17/2020 12:52 AM CDT Oxygen Saturation 98% 02/29/2024 10:36 AM SAND SCREENER Inhaled Oxygen Concentration - - Weight 79.8 kg (176 lb) 02/29/2024 10:36 AM SAND SCREENER Height 165.1 cm (5' 5 ) 02/29/2024 10:36 AM SAND SCREENER Body Mass Index 29.29 02/29/2024 10:36 AM SAND SCREENER Plan of Treatment Health Maintenance Due Date Last Done Comments Albumin Creatinine Ratio, Urine 1944 Hepatitis C Screening 1945 Dilated Eye Exam 1944 Foot Exam 1944 Hepatitis B Screening 1962 Well Visit 65+ 2009 Hemoglobin A1C 02/13/2021 08/14/2020, 06/30/2017 Depression Screening 08/11/2021 08/11/2020, 08/12/19 21 Fall Risk Assessment 08/12/2021 08/12/2020 eGFR 08/14/2021 08/14/2020 Zoster Vaccine (3 of 3) 01/06/2023 11/11/2022, 12/24 Osteoporosis Screening-Bone Density Scan 07/16/2023 07/15/2021 Covid-19 Vaccine (2023-2 5 season) 2023 02/23/2021, 06/01/2020, 05/10/2020 Lipid Panel 08/13/2024 08/14/2023, 09/06, 09/12/2021, Additional history exists DTaP/Tdap/Td Vaccine (3 - Td or Tdap) 09/05/2030 09/05/2020, 06/05/2016, 07/22/2014 Pneumococcal vaccine 65+ Completed 03/30/2017, 10/2015 Influenza Vaccine Completed 12/08/2023, , 12/03/2017, Additional history exists Procedures Procedure Name Priority Date/Time Associated Diagnosis Comments POCT LIPID PANEL Routine 09/18/2022 3:32 PM CDT Lipid screening EGFR Routine 08/14/2020 9:38 AM CDT HEMOGLOBIN A1C Routine 08/14/2020 9:38 AM CDT from Last 3 Months or Most Recently Relevant to Health Maintenance Results * POCT lipid panel (09/18/2022 3:32 PM CDT) Cholesterol, POC 266 mg/dL HDL, POC 57 mg/dL Triglycerides, POC 149 mg/dL LDL Cholesterol POC 178 mg/dL Chol/HDL Ratio, POC 3.1 Non-HDL Cholesterol, POC 208 mg/dL Cholesterol Total, POC 266 mg/dL Capillary blood 09/18/2022 3 :32 PM CDT us Ana Maria Hess NP POINT OF CARE TEST ORDERA BLES Edited Result - Final * eGFR (08/14/2020 9:38 AM CDT) eGFR 49 mL/min/1.7 3 m2 KERRIE LUGO Comment: Interpretive Data Reference Interval Normal ?>/= 90 mL/min/1.73m2 Mildly decreased* ? 60 - 89 mL/min/1.73m2 Mildly to moderately decreased ?45 - 59 mL/min/1.73m2 Moderately to severely decreased ??30 - 44 mL/min/1.73m2 Severely decreased ?15 - 29 mL/min/1.73m2 Kidney Failure ?< 15 ??mL/min/1.73m2 *Relative to young adult level Estimated glomerular filtration rate is determined by the CKD-EPI equation recommended by the National Kidney Foundation (KDIGO 2012 Clinical Practice Guideline for the Evaluation and Management of Chronic Kidney Disease. Kidney Intnl Suppl Mar 2012;3:1). The CKD-EPI equation should not be used for patients with unstable renal function and has not been validated in children and those over 70. Current interpretive data was last reviewed 2020 Blood specimen (specimen) 08/14/2020 9:38 AM CDT 08/14/2020 9:54 AM CDT us Amparo Vergara MD LAB BLOOD ORDERABLES Final Resul t KERRIE [address] [facility] Department [place] [address] * (ABNORMAL) Hemoglobin A1c (08/14/2020 9:38 AM CDT) Hgb A1C 6.0(H) 4.0 - 5.6 % KERRIE LUGO Estimated Average Glucose 126 mg/dL KERRIE LUGO Comment: The ADA recommends reporting an estimated Average Glucose (eAG) with all Hemoglobin A1c results using the equation derived from a study of 507 normal and diabetic adults. ??Minority populations were underrepresented and children were not included. ?? (Diabetes Care 31:5439-4585, 2008). ??The eAG is not equivalent to a fasting glucose. Blood specimen (specimen) 08/14/2020 9:38 AM CDT 08/14/2020 9:54 AM CDT us Amparo Vergara MD LAB BLOOD ORDERABLES Final Resul t [facility] [address] [facility] [place] [address] from Last 3 Months or Most Recently Relevant to Health Maintenance Insurance [facility] Advance Directives For more information, please contact: [phone] Documents on File Type Date Recorded Patient Soldering Machine Tender Expl anation ADVANCE DIRECTIVE 09/04/2020 1:26 PM OUTSI [facility] ADVANCE DIRECTIVE 09/03/2020 12:52 PM ADVANCE DIRECTIVE 08/16/2020 11:40 AM OUTS ADE[facility]A [facility] DNR * Full Code (Latest Code Status on File) Date Activated Date Inactivated Comments 08/11/2020 6:08 PM 08/17/2020 5:34 PM Care Teams Organ Tuner Relationship Specialty Start Date End Date Sanjeev Webster DO [address] [place] [id number] PCP - General Family Medicine 03/11/21
--- OUTSIDE RECORDS SUMMARY | 2024-03-15 01:55 | XMS_ITS | Encounter Summary ---
Author Organization [facility] Healthcare Address [address] [place] [address] Care Team Providers Care Welding Inspector Name Role Phone Sanjeev Webster DO Primary Care Provide r Encounter Details Date Type Department Care Team (Late st Contact Info) Description 05/16/[address] 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 Gender Identity Not on file Sexual Orientation Not on file documented as of this encounter Plan of Treatment Not on file documented as of this encounter Procedures Procedure Name Priority Date/Time Associated Diagnosis Comments SCAN - RADIOLOGY/IMAGING 05/16/2022 documented in this encounter Results * SCAN - RADIOLOGY/IMAGING (05/16/2022) Anatomical Region Laterality Modality Other us Provider Scanning Final Result documented in this encounter Visit Diagnoses Not on filedocumented in this encounter Care Teams Welding Inspector Relationship Specialty Start Date End Date Sanjeev Webster DO [address] [place] [id number] PCP - General Family Medicine 03/11/21 documented as of this encounter
--- OUTSIDE RECORDS SUMMARY | 2024-03-15 01:55 | XMS_ITS | Encounter Summary ---
Author Organization [facility] Address [address] [place] [address] Care Team Providers Care Canal Tender Name Role Phone Sanjeev Webster Primary Care Provide r Reason for Visit * Reason Comments Follow-up 2-3 mo f/u Coronary Artery Disease Atrial Flutter Pneumonia October 2021 Encounter Details Date Type Department Care Team (Late st Contact Info) Description 12/06/2021 11:30 AM CDT Office Visit [facility] Cardiology [address] [place] [address] Maurice Paredes MD [facility] [address] Coronary artery disease involving [place] coronary artery of [place] heart without angina pectoris (Primary Dx); Hypertension associated with diabetes (HCC); History of mechanical aortic valve replacement; Paroxysmal atrial flutter (CMS/HCC) (HCC); Chronic anticoagulation; LBBB (left bundle branch block) Social History [...] on file 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 Gender Identity Not on file Sexual Orientation Not on file documented as of this encounter Last Filed Vital Signs Vital Sign Reading Time Taken Comments Blood Pressure 122/68 12/06/2021 11:41 AM CDT Pulse 97 12/06/2021 11:41 AM CDT Temperature - - Respiratory Rate - - Oxygen Saturation 97% 12/06/2021 11: 41 AM CDT Inhaled Oxygen Concentration - - Weight 77.5 kg (170 lb 12.8 oz) 022 11:41 AM CDT Height 165.1 cm (5' 5 ) 12/06/2021 11:4 1 AM CDT Body Mass Index 28.42 12/06/2021 11:41 AM CDT documented in this encounter Progress Notes * Maurice Paredes MD - 12/06/2021 11:30 AM CDT [facility] DATE OF VISIT: 12/06/2021 CHIEF COMPLAINT Chief Complaint Patient presents with Follow-up 2-3 mo f/u Coronary Artery Disease Atrial Flutter Pneumonia October 2021 HPI Radhachago Huynh is a 76 y.o. female with [...] Going to see PCP. 08/12/17 Admitted to [facility] in June due to SOB found to be in A.Fib and started on Diltiazem and Metoprolol. Was discharged still with TORRES then sxs continued to worsen and readmitted to [facility] in July. She was started on Sotalol [...] little. She still has not seen a Trade Mark Attorney. Not using CPAP for a year. She later admits she is only taking maybe 4 of her medicines but she is not sure if she is taking Sotalol. 02/08/19 CAT visit: Patient presented to [facility] on 12/17/18 complaint of shortness of breath. [...] pertinent negatives. I later called her granddaughter Nemea who primarily coordinate her care and does [...] 04/02/21 HFU w/ CAT- she went into [facility] on 03/21/21 with complaint of worsening dyspnea.She [...] note from myself, 03/21/21 inpatient notes from [facility] including the H&P, consultation note from Dr. [...] denies new limitations. On Amiodarone 100mg daily. 9/30/[address] [facility] pneumonia lost 20lb still SOB but slowly improving, no dizziness or falls no bleeding. No CP or palps. Ok otherwise. Denies falls. Qiana meds but does not know them. Saw PCP very recently. MEDICAL HISTORY Past Medical History: Diagnosis Date [...] Hydrocortisone Neomycin Polymyxin B Skin Cleanser Neosporin (Ujk-Xhf-Almhp) [Kiuaecgl-Sdgxgjtexc-Spzvwekhl] Other (See comments) It makes things worse [...] for environmental allergies. PHYSICAL EXAM Vitals BP 122/68 (BP Location: Right arm, Patient Position: Sitting) Pulse 97 Ht 165.1 cm (5' 5 ) Wt 77.5 kg (170 lb 12.8 oz) SpO2 97% BMI 28.42 kg/m?? Weight: 77.5 kg (170 lb 12.8 oz) Height: 165.1 cm (5' 5 ) Body mass index is 28.42 kg/m??. Physical Exam Vitals reviewed. Constitutional: General: [...] is present with a grade of 2/6. [place] metallic S2 No friction rub. No gallop. [...] Judgment normal. LABS AND OTHER DIAGNOSTIC TESTS Office Visit on 09/12/2021 Component Date Value [...] is normal. Atrial fibrillation. Possible old anterior CO. Negative EKG portion of stress test. Personally reviewed EKG, Echocardiogram, stress test, and bloodwork/lipids and hospital records from [facility] 06/2017 and [facility] 07/2017. ASSESSMENT Diagnoses and all orders for this visit: Coronary artery disease involving [place] coronary artery of [place] heart without angina pectoris (Primary) Hypertension associated with diabetes (HCC) History of mechanical aortic valve replacement Paroxysmal atrial flutter (CMS/HCC) (HCC) Chronic anticoagulation LBBB (left bundle branch block) PLAN/RECOMMENDATIONS 1. [...] 25mg daily. -Tolerating Toprol XL 25mg daily per list. -Off Amiodarone given toxicity concerns. -Concern for tachy-amber and possible need for PPM if symptomatic amber and or tachyarrhythmia. -LHC 2002 with minimal luminal irregularities.12/2018 Lexiscan possible old anterior CO EF 62%. Over 50% of this visit counseling mechanical aortic valve, HTN, lipids, medications, lifestyle modification. Follow up in the office in 2-3 months or sooner as needed. Thank you for allowing me the privilege of participating in the care this very pleasant patient. Please do not hesitate to contact me with any additional questions or concerns. Dilma Paredes MD, [facility] documented in this encounter Plan of Treatment Not on file documented as of this encounter Visit Diagnoses Diagnosis Coronary artery disease involving [place] coronary artery of [place] heart without angina pectoris- Primary Hypertension associated with diabetes (HCC) Unspecified essential hypertension History of mechanical aortic valve replacement Paroxysmal atrial flutter (CMS/HCC) (HCC) Chronic anticoagulation Encounter for long-term (current) use of anticoagulants LBBB (left bundle branch block) Other left bundle branch block documented in this encounter Care Teams Canal Tender Relationship Specialty Start Date End Date Sanjeev Webster DO [address] [place] [id number] PCP - General Family Medicine 03/11/21 documented as of this encounter
--- OUTSIDE RECORDS SUMMARY | 2024-03-15 01:55 | XMS_ITS | Encounter Summary ---
Author Organization [facility] Address [address] [place] [address] Care Team Providers Care Sheet Metal Worker Maintenance Name Role Phone Sanjeev Webster Primary Care Provide r Encounter Details Date Type Department Care Team (Late st Contact Info) Description 09/19/[address] 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 * Telephone Encounter - Ryanne Pierre RN - 09/19/2021 11:50 AM CDT Silvana called back. PCP will cont to manage INR for ease for the pt. Pt had not consistently done INRs so PCP was doing them at times as well. They are aware if they have any questions to call for guidance. Also in reference to previous tele note about adding BB. Care coordination RN clarified BB with PCP. It was for hyperthyroid. Per PCP BB used to help offset the symptoms of Hyperthyroid. Sending to [place] as FYI * Telephone Encounter - Ryanne Pierre RN - 09/19/2021 8:33 AM CDT Spoke with Silvana HUNTER child day care provider for Dr Webster and [facility]. Pt was in [facility] ER fro GB issues and had a high INR. 6.8. Pt was given instructions but in her reviewing pt and discussing with me, pt is being manage by both PCP and our office. All of her INRs are not coming to us and some going to PCP. Her warfarin has been refilled py PCP office as well. ADs OV states managed py PCP. I told her we are happy to mangage especially since it is complex. She will clarify with PCP who is to manage warfarin. documented in this encounter Plan of Treatment Not on file documented as of this encounter Visit Diagnoses Not on filedocumented in this encounter Care Teams Sheet Metal Worker Maintenance Relationship Specialty Start Date End Date Sanjeev Webster DO [address] [place] [id number] PCP - General Family Medicine 03/11/21 documented as of this encounter
--- OUTSIDE RECORDS SUMMARY | 2024-03-15 01:55 | XMS_ITS | Encounter Summary ---
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 * Telephone Encounter - Cameron Arana - 08/26/2021 12:10 PM CDT Pt contact Izzy called inquiring on dosage/regimen of Warfarin,please advise Thank you Contact:[phone] documented in this encounter Plan of Treatment Not on file documented as of this encounter Visit Diagnoses Not on filedocumented in this encounter Care Teams Single Resource Boss Relationship Specialty Start Date End Date Sanjeev Webster DO [address] [place] [address] PCP - General Family Medicine 03/11/21 documented as of this encounter
--- OUTSIDE RECORDS SUMMARY | 2024-03-15 01:55 | XMS_ITS | Referral Summary ---
Author Organization [facility] [address] [place] [address] Address [address] [facility] [address] [place] [address] Care Team Providers Care Investigator Welfare Name Role Phone Sanjeev Webster DO Primary Care Provide r Encounters Date Type Department Care Team Description 02/29/2024 10:30 AM PAPERHANGER ASSISTANT Office Visit [facility] Cardiology [address] [place] [address] [address] [place] [address] Paxton Villela MD from Last 3 Months Allergies Active Allergy Reactions Criticality Noted Date Comments Atorvastatin Muscle pain,Other (See comments) High 08/12/2021 Leg pain/cramps. Resolved after stopping. Bacitracin Benzalkonium Cortisone Rash,Unknown High 08/02/2023 Gramicidin D Hydrocortisone Neomycin Uayxawgz-Emluagyjca-Gmgxp yxin Other (See comments) Low 07/31/2020 It [...] monitor 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 toxicity with fdc u se 05/06/2019 Coronary artery disease invo lving levelock coronary artery of levelock heart without angina pectoris 05/06/2019 Abnormal stress [...] a associated with type 2 diabetes mellitus ([facility]) 07/16/2015 Overview (06/13/2016): DM type 2 with [...] therapy 08/15/2014 09/12/2021 Overview (06/13/2016): Chronic anticoagulation Social History Tobacco Use Types [...] on file 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 Female 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 Gender Identity Not on file Sexual Orientation Not on file Last Filed Vital Signs Vital Sign Reading Time Taken Comments Blood Pressure 90/64 02/29/2024 10:36 AM PAPERHANGER ASSISTANT Pulse 68 02/29/2024 10:36 AM PAPERHANGER ASSISTANT Temperature 36.6 ??C (97.8 ??F) 08/17/2020 12:52 AM C DT Respiratory Rate 20 08/17/2020 12:52 AM CDT Oxygen Saturation 98% 02/29/2024 10:36 AM PAPERHANGER ASSISTANT Inhaled Oxygen Concentration - - Weight 79.8 kg (176 lb) 02/29/2024 10:36 AM PAPERHANGER ASSISTANT Height 165.1 cm (5' 5 ) 02/29/2024 10:36 AM PAPERHANGER ASSISTANT Body Mass Index 29.29 02/29/2024 10:36 AM PAPERHANGER ASSISTANT Plan of Treatment Not on file Procedures Procedure Name Priority Date/Time Associated Diagnosis [...] Final * eGFR (08/14/2020 9:38 AM CDT) Pathologist [facility] eGFR 49 mL/min/1.7 3 m2 [facility] Comment: Interpretive Data Reference Interval Normal ?>/= [...] MD LAB BLOOD ORDERABLES Final Resul t [facility] [address] [facility] [place] [address] * (ABNORMAL) Hemoglobin A1c (08/14/2020 9:38 AM CDT) Pathologist [facility] Hgb A1C 6.0(H) 4.0 - 5.6 % [facility] Estimated Average Glucose 126 mg/dL [facility] Comment: The ADA recommends reporting an estimated Average Glucose (eAG) with all Hemoglobin A1c results using the equation derived from a study of 507 normal and diabetic adults. ??Minority populations were underrepresented and children were not included. ?? (Diabetes Care 31:6209-4090, 2008). ??The eAG is not equivalent to a fasting glucose. Blood specimen (specimen) 08/14/2020 9:38 AM CDT 08/14/2020 9:54 AM CDT Amparo Vergara MD LAB BLOOD ORDERABLES Final Resul t [facility] [address] [facility] [place] [address] from Last 3 Months or Most Recently Relevant to Health Maintenance Insurance [facility] [id number] Advance Directives For more information, please contact: [phone] Documents on File Type Date Recorded Patient [place] Tour Guide Expl anation ADVANCE DIRECTIVE 09/04/2020 1:26 PM OUTSI DE [facility] DNR ADVANCE DIRECTIVE 09/03/2020 12:52 PM ADVANCE DIRECTIVE 08/16/2020 11:40 AM OUTS ADEOLA [facility] DNR * Full Code (Latest Code Status on File) Date Activated Date Inactivated Comments 08/11/2020 6:08 PM 08/17/2020 5:34 PM Care Teams Investigator Welfare Relationship Specialty Start Date End Date Sanjeev Webster DO [address] [place] [id number] PCP - General Family Medicine 03/11/21
--- OUTSIDE RECORDS SUMMARY | 2024-03-15 01:56 | XMS_ITS | Encounter Summary ---
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 She would like me to call daughter. LM On requesting daughter to call about low INR. OR SOLUTIONS CONSULTANT * Telephone Encounter - Ryanne Pierre RN - 03/18/2021 7:39 AM CST Attempted to call pts daughter back on Thursday, NA. Call placed to [facility], lab still pending. OR SOLUTIONS CONSULTANT * Telephone Encounter - Halina Jama - 03/15/2021 3:28 PM CST Pt daughter requesting call from [facility] Pearl regarding pt INR. Contact: OR SOLUTIONS CONSULTANT documented in this encounter Plan of Treatment Not on file documented as of this encounter Visit Diagnoses Not on filedocumented in this encounter Care Teams Information Security Architect Relationship Specialty Start Date End Date Sanjeev Webster DO [address] [place] [id number] PCP - General Family Medicine 03/11/21 documented as of this encounter
--- OUTSIDE RECORDS SUMMARY | 2024-03-15 01:56 | XMS_ITS | Encounter Summary ---
Author Organization [facility] Address [address] [facility] [address] [place] [address] Care Team Providers Care Television Repairer Name Role Phone Juan ASanjeev crowe DO Primary Care Provide r Reason for Referral * Diagnostic Imaging (Routine) - Closed Specialty Diagnoses / Procedures Referred By Contac t Referred To Contact Diagnoses 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 toxicity with [place] [facility] [place] use Procedures XR Chest Pa Lateral 2 Views Ana Maria Hess NP [address] [address] Phone: tel: fax: External Order Referral ID Status Reason Start Date Expiration Date Visits Re quested Visits Authorized [id number] Closed 03/11/2021 04/10/2022 1 1 MIXER Reason for Visit * Reason Comments Follow-up Encounter Details Date Type Department Care Team (Late st Contact Info) Description 03/11/2021 2:30 PM ALUM MIXER Office Visit [facility] Cardiology [address] [address] Ana Maria Hess NP [address] [address] Paroxysmal atrial flutter (CMS/HCC) (HCC) (Primary Dx); 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 toxicity with [place] [facility] [place] use; H/O mechanical aortic valve replacement; Chronic anticoagulation; Coronary artery disease involving kaw coronary artery of kaw heart without angina pectoris Social History Tobacco Use Types Packs/Day Years [...] on file Legal Sex Female 6:10 AM ALUM MIXER Gender Identity Not on file Sexual Orientation Not on file documented as of this encounter Last Filed Vital Signs Vital Sign Reading Time Taken Comments Blood Pressure 144/66 03/11/2021 2:45 PM ALUM MIXER Pulse 84 03/11/2021 2:45 PM ALUM MIXER Temperature - - Respiratory Rate - - Oxygen Saturation 97% 03/11/2021 2:45 PM ALUM MIXER Inhaled Oxygen Concentration - - Weight 86.6 kg (191 lb) 03/11/2021 2:45 PM ALUM MIXER Height 165.1 cm (5' 5 ) 03/11/2021 2:45 PM ALUM MIXER Body Mass Index 31.78 03/11/2021 2:45 PM ALUM MIXER documented in this encounter Patient Instructions * Patient Instructions* Ana Maria Hess NP - 03/11/2021 2:30 PM ALUM MIXER Get INR drawn one day this week. Get scheduled for a routine eye exam as soon as possible. MIXER documented in this encounter Progress Notes * Ana Maria Hess NP - 03/11/2021 2:30 PM CST Images from the original note were not included. [facility] Cardiology [address] [place] [address] Date of Visit: 03/11/2021 Patient ID: Radha Huynh 1945 Chief Complaint: Radha Huynh is a 75 y.o. female who is an established patient of Dr. Paredes with a history of mechanical aortic valve, PAF and CAD, returning to the office for routine follow-up. History of Present Illness: Radha Huynh is a 75 y.o. female with a PMHx of mechanical [...] sxs continued to worsen and readmitted to [facility] in July. She was started on Sotalol (Dilt and Metoprolol stopped). She spontaneously converted to SR prior to ALFRED/CV. SOB resolved, back at baseline no complaints. No CP or dizziness, bleeding.Iqana meds. 02/17/18 Not feeling well today, feels [...] little. She still has not seen a Industrial Order Clerk. Not using CPAP for a year. She later admits she is only taking maybe 4 of her medicines but she is not sure if she is taking Sotalol. 02/08/19 CAT visit: Patient presented to [facility] on 12/17/18 complaint of shortness of [...] she was hospitalized 12/2018 b/c metoprolol was startedfor better heart rate control and the lisinopril [...] or concerns. First thing in the mornings he sometimes notices shortness of breath but it gets better as she gets moving she only occasionally notices shortness of breath in the afternoon and she denies any orthopnea or PND. She denies chest pain, palpitations or edema. Records that I personally reviewed on the day of this visit include: (the interpretation is outlined in the HPI above) 01/12/[address] Paredes, 07/31/2020 office note from myself, 10/18/2020 lab results I have also reviewed: allergies, current medications, past family history, past medical history, past social history, past surgical history and problem list Review of Systems Constitutional: Positive for weight gain. Negative for diaphoresis, fever, malaise/fatigue and weight loss. HENT: Positive for hearing loss. Eyes: Positive for visual disturbance. Cardiovascular: Negative for chest pain, claudication, dyspnea on exertion, leg swelling, orthopnea, palpitations, paroxysmal nocturnal dyspnea and syncope. Respiratory: Positive for shortness of breath and snoring. Negative for cough, hemoptysis, sleep disturbances due to breathing and wheezing. Hematologic/Lymphatic: Does not bruise/bleed easily. Skin: Negative for poor wound healing and rash. Musculoskeletal: Positive for joint pain. Negative for myalgias. Gastrointestinal: Negative for heartburn, nausea and vomiting. Genitourinary: Negative for hematuria. Neurological: Negative for dizziness, headaches and light-headedness. Psychiatric/Behavioral: Negative for depression. The patient is not nervous/anxious. Vital Signs: BP 144/66 (BP Location: Left arm, Patient Position: Sitting) Pulse 84 Ht 165.1 cm (5' 5 ) Wt 86.6 kg (191 lb) SpO2 97% BMI 31.78 kg/m?? Physical Exam Constitutional: General: She is [...] and Affect: Mood normal. Allergies Allergen Reactions ??? Bacitracin ??? Benzalkonium ??? Gramicidin D ??? Hydrocortisone ??? Neomycin ??? Polymyxin B ??? Skin Cleanser ??? Neosporin (Gqo-Zxz-Nrmyh) [Llniwvps-Jpclueomzw-Xblornfaa] Other (See comments) It makes things worse instead of healing. Current Outpatient Medications: ??? acetaminophen (TYLENOL) 325 mg tablet, Take 2 tablets (650 mg total) by mouth every 6 (six) hours as needed (pain), Disp: 30 tablet, Rfl: ??? albuterol HFA (PROVENTIL HFA,VENTOLIN HFA,PROAIR HFA) 90 mcg/actuation inhaler, Inhale 1 puff every 4 (four) hours as needed for wheezing, Disp: 1 Inhaler, Rfl: 0 ??? amiodarone (PACERONE) 200 mg tablet, Take 0.5 tablets (100 mg total) by mouth daily, Disp: 45 tablet, Rfl: 3 ??? atorvastatin (LIPITOR) 10 mg tablet, TAKE 1 TABLET BY MOUTH ONCE DAILY AT BEDTIME, Disp: 90 tablet, Rfl: 2 ??? azelastine (ASTELIN) 137 mcg (0.1 %) nasal spray, Use in each nostril daily, Disp: 30 mL, Rfl: ??? cholecalciferol, vitamin D3, 1,000 unit tablet,chewable, Take 1 tablet/chew tab by mouth daily,Disp: , Rfl: ??? ferrous sulfate 325 mg (65 mg of elemental iron) tablet, Take 1 tablet (325 mg total) by mouth daily with breakfast, Disp: 30 tablet, Rfl: 11 ??? furosemide (LASIX) 20 mg tablet, Take 20 mg by mouth daily, Disp: , Rfl: ??? gabapentin (NEURONTIN) 300 mg capsule, Take 1 capsule (300 mg total) by mouth 2 (two) times a day, Disp: 60 capsule, Rfl: 11 ??? HYDROcodone-acetaminophen (NORCO) 10-325 mg per tablet, Take 2 tablets by mouth every 8 (eight)hours as needed (pain), Disp: 30 tablet, Rfl: 0 ??? lisinopril (PRINIVIL,ZESTRIL) 2.5 mg tablet, Take 2.5 mg by mouth daily, Disp: , Rfl: 3 ??? omeprazole (PriLOSEC) 20 mg capsule, Take 20 mg by mouth daily., Disp: , Rfl: ??? polyethylene glycol (MIRALAX) 17 gram packet, Take 1 packet (17 g total) by mouth 2 (two) timesa day as needed for constipation, Disp: , Rfl: ??? senna (SENOKOT) 8.6 mg tablet, Take 1 tablet by mouth 2 (two) times a day as needed for constipation, Disp: , Rfl: ??? venlafaxine XR (EFFEXOR-XR) 150 mg 24 hr capsule, Take 1 capsule (150 mg total) by mouth daily with breakfast, Disp: 30 capsule, Rfl: 11 ??? warfarin (COUMADIN) 6 mg tablet, Take 1 tablet (6 mg total) by mouth daily, Disp: 60 tablet, Rfl: 0 Lab Results Component Value Date POTASSIUM 4.2 08/14/2020 BUNSER 16 08/14/2020 CREATININE 1.10 08/14/2020 CHOL 173 06/29/2017 TRIG 116 06/29/2017 LDL 75 05/23/2015 LDLCALC 84 06/29/2017 HDL 66 06/29/2017 Assessment: Diagnoses and all orders for this visit: Paroxysmal atrial flutter (CMS/HCC) (HCC) (Primary) 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 toxicity with [place] [facility] [place] use - XR Chest Pa Lateral 2 Views; Future H/O mechanical aortic valve replacement - Transthoracic Echo Complete W Doppler/CF; Future Chronic anticoagulation Coronary artery disease involving kaw coronary artery of kaw heart without angina pectoris Plan/Recommendations: She sounds like she is maintaining sinus rhythm on amiodarone. She has had no episodes of palpitations. She is not bradycardic (metoprolol was discontinued 01/2020 due to bradycardia). I reviewed amiodarone toxicity monitoring with the patient. I reminded her to schedule a routine eye exam. She hada TSH and LFTs checked in October and they were within normal limits. She had a chest x-ray 01/12/2020, PFTs 02/17/2020. I gave her an order to repeat a chest x-ray since it has now been over 1 year. She has a history of mechanical aortic valve replacement. As noted on Dr. Paredes last office visitnote, there has been a mild increase in velocities on previous echoes, so a repeat echo was recommended this year. I asked the patient to return for an echo in a month. She is on warfarin for anticoagulation and her INR was previously followed by PCP but looks that weare now following it. Her last INR was supratherapeutic and she is due to have it recheck. I calledher family member Izzy as well to make sure that this is done. Coronary artery disease appears stable and asymptomatic. She is not on aspirin therapy because of her warfarin. She is on atorvastatin. She is no longer on a beta-lexy because of bradycardia. She remains on low-dose MING-inhibitor. Return to the office to see Dr. Paredes in 6 months. Call us sooner with questions or concerns. (I also gave Izzy the dates for the echo and the next appt with Dr. Paredes to help remind pt when the time comes, as well as pt needing to schedule eye exam) 03/12/2021 addendum: I received the report from the patient's chest x-ray and it was unremarkable. Ana Maria Hess, MAI- Nurse Practitioner with [facility] Cardiology Level 5 for amiodarone toxicity monitoring This note is dictated and transcribed using [employer]. Tire Trucker variancesmay occur. Despite proofreading, typographical errors may occur. MIXER MIXER documented in this encounter Plan of Treatment Not on file documented as of this encounter Procedures Procedure Name Priority Date/Time Associated Diagnosis Comments XR CHEST PA LATERAL 2 VIEWS Routine 03/11/2021 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 toxicity with [place] [facility] [place] use documented in this encounter Results * XR Chest Pa Lateral 2 Views (03/11/2021) Anatomical Region Laterality Modality Body, Chest N/A Radiographic Jennifer ging Ana Maria Hess NP IMG XR PROCEDURES Final R esult documented in this encounter Visit Diagnoses Diagnosis Paroxysmal atrial flutter (CMS/HCC) (HCC)- Primary 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 toxicity with [place] [facility] [place] use H/O mechanical aortic valve replacement Chronic anticoagulation Encounter for long-term (current) use of anticoagulants Coronary artery disease involving kaw coronary artery of kaw heart without angina pectoris documented in this encounter Historical Medications * This list may reflect changes made after this encounter. FUROSEMIDE ORAL Take 20 mg by mouth daily added in this encounter Care Teams Television Repairer Relationship Specialty Start Date End Date Sanjeev Webster DO [address] [place] [place] [id number] PCP - General Family Medicine 03/11/21 documented as of this encounter
--- OUTSIDE RECORDS SUMMARY | 2024-03-15 01:56 | XMS_ITS | Encounter Summary ---
Author Organization [facility] Address [address] [facility] [address] [place] [address] Care Team Providers Care Supervisor Final Name Role Phone Sanjeev Webster DO Primary Care Provide r Encounter Details Date Type Department Care Team (Latest Contact Info) Description 07/31/2021 Anticoagulation Visit [facility] Cardiology [address] [place] [address] Natalee Michaels RN History of mechanical aortic valve replacement (Primary Dx); Paroxysmal atrial flutter (CMS/HCC) (HCC) Social History Tobacco Use Types Packs/Day Years [...] on file 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
--- OUTSIDE RECORDS SUMMARY | 2024-03-15 01:56 | XMS_ITS | Encounter Summary ---
Author Organization [facility] Address [address] [facility] [address] [place] [address] Care Team Providers Care Service Parts Driver Name Role Phone Sanjeev Webster Primary Care Provide r Encounter Details Date Type Department Care Team (Late st Contact Info) Description 03/23/2021 Orders Only [facility] Cardiology [address] [address] [address] [place] [address] Christiane Carrera MD [address] [place] [address] Social History Tobacco Use Types [...] on file Legal Sex Female 6:10 AM ETL CONSULTANT Gender Identity Not on file Sexual Orientation Not on file documented as of this encounter Plan of Treatment Not on file documented as of this encounter Procedures Procedure Name Priority Date/Time Associated Diagnosis Comments CARDIOLOGY DOCUMENT SCAN Routine 03/23/2021 documented in this encounter Results * SCAN - CARDIOLOGY (03/23/2021) Anatomical Region Laterality Modality Other Christiane Carrera MD CV CARDIAC SERVICES PROCEDU RES Final Result documented in this encounter Visit Diagnoses Not on filedocumented in this encounter Care Teams Service Parts Driver Relationship Specialty Start Date End Date Sanjeev Webster DO [address] [place] [id number] PCP - General Family Medicine 03/11/21 documented as of this encounter
--- OUTSIDE RECORDS SUMMARY | 2024-03-15 01:56 | XMS_ITS | Encounter Summary ---
Author Organization [facility] Address [address] [facility] [address] [place] [address] Care Team Providers Care Club Attendant Name Role Phone Miscellaneous, Not In File Primary Care Provider Unavailable Encounter Details Date Type Department Care Team (Latest Contact Info) Description 10/23/2020 Anticoagulation Visit [facility] Cardiology [address] [place] [address] Natalee Michaels, RN History of mechanical aortic valve replacement [...] on file Legal Sex Female 6:10 AM SOFTWARE SPECIALIST Gender Identity Not on file Sexual Orientation Not on file documented as of this encounter Plan of Treatment Not on file documented as of this encounter Visit Diagnoses Diagnosis History of mechanical aortic valve replacement- Primary Paroxysmal atrial flutter (CMS/HCC) (HCC) documented in this encounter Care Teams Club Attendant Relationship Specialty Start Date End Date Miscellaneous, Not In File PCP - General 08/07/2003/10/ 2 documented as of this encounter
--- OUTSIDE RECORDS SUMMARY | 2024-03-15 01:56 | XMS_ITS | Encounter Summary ---
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
--- OUTSIDE RECORDS SUMMARY | 2024-03-15 01:56 | XMS_ITS | Encounter Summary ---
Author Organization [facility] Address [address] [place] [address] Care Team Providers Care Chute Feeder Name Role Phone Sanjeev Webster Primary Care Provide r Encounter Details Date Type Department Care Team (Late st Contact Info) Description 07/31/[address] 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 * Telephone Encounter - Cameron Arana - 07/31/2021 3:06 PM CDT Pt daughter in law creturning nurse Natalee call,Thank you Contact:[phone] * Telephone Encounter - Natalee Michaels RN - 07/31/2021 12:02 PM CDT LM on VM requesting callback. * Telephone Encounter - Cameron Arana - 07/31/2021 11:55 AM CDT Pt daughter in law Izzy requesting a call from nurse Natalee.Thank you Contact:[phone] documented in this encounter Plan of Treatment Not on file documented as of this encounter Visit Diagnoses Not on filedocumented in this encounter Care Teams Chute Feeder Relationship Specialty Start Date End Date Sanjeev Webster DO [address] [place] [id number] PCP - General Family Medicine 03/11/21 documented as of this encounter
--- OUTSIDE RECORDS SUMMARY | 2024-03-15 01:56 | XMS_ITS | Encounter Summary ---
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 Izzy is at work requesting a call back during herlunch time around 11:30am. Contact: BOX TESTER documented in this encounter Plan of Treatment Not on file documented as of this encounter Visit Diagnoses Not on filedocumented in this encounter Care Teams Aba Therapist Relationship Specialty Start Date End Date Sanjeev Webster DO [address] [place] [address] [id number] PCP - General Family Medicine 03/11/21 documented as of this encounter
--- OUTSIDE RECORDS SUMMARY | 2024-03-15 01:56 | XMS_ITS | Encounter Summary ---
Author Organization [facility] Address [address] [place] [address] Care Team Providers Care Algology Teacher Name Role Phone Miscellaneous, Not In File Primary Care Provider Unavailable Sanjeev Webster DO Primary Care Provide r Encounter Details Date Type Department Care Team (Late st Contact Info) Description 03/04/2021 Telephone [facility] Cardiology [address] [facility] [address] [place] [address] Maurice Paredes MD 12[address] [facility] [address] [place] [id number] Social History Tobacco Use Types Packs/Day Years [...] on file 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 Pt also had INR rechecked on 02/28. Will call back when we receive results. MANAGER * Telephone Encounter - Halina Jama - 03/04/2021 11:14 AM CST Pt daughter requesting call back to discuss pt iron medicine. Contact: MANAGER documented in this encounter Plan of Treatment Not on file documented as of this encounter Visit Diagnoses Not on filedocumented in this encounter Care Teams Algology Teacher Relationship Specialty Start Date End Date Miscellaneous, Not In File PCP - General 08/07/20 2 Sanjeev Webster DO [address] [place] [id number] PCP - General Family Medicine 03/11/21 documented as of this encounter
--- OUTSIDE RECORDS SUMMARY | 2024-03-15 01:56 | XMS_ITS | Encounter Summary ---
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 Gender Identity Not on file Sexual Orientation Not on file documented as of this encounter Plan of Treatment Not on file documented as of this encounter Procedures Procedure Name Priority Date/Time Associated Diagnosis Comments PROTIME-INR Routine 03/25/2021 documented in this encounter Results * (ABNORMAL) Protime-INR (03/25/2021) INR 2.80(A) 0.9 - 1.1 [facility] Blood specimen (specimen) us Historical Provider LAB BLOOD ORDERABLES Christen farooq Result [facility] documented in this encounter Visit Diagnoses Diagnosis History of mechanical aortic valve replacement- Primary Paroxysmal atrial flutter (CMS/HCC) (HCC) documented in this encounter Care Teams Jailer/Training Officer Relationship Specialty Start Date End Date Sanjeev Webster DO [address] [place] [id number] PCP - General Family Medicine 03/11/21 documented as of this encounter
--- OUTSIDE RECORDS SUMMARY | 2024-03-15 01:56 | XMS_ITS | Encounter Summary ---
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 CULOTHERAPIST * Telephone Encounter - Halina Jama - 04/03/2021 12:38 PM CST DALE Pina called from Dr. Webster office (PCP) requesting we fax over the most recent office visit note to their office. Thank you. Contact: CULOTHERAPIST documented in this encounter Plan of Treatment Not on file documented as of this encounter Visit Diagnoses Not on filedocumented in this encounter Care Teams Mail Room Clerk Relationship Specialty Start Date End Date Sanjeev Webster DO [address] [place] [id number] PCP - General Family Medicine 03/11/21 documented as of this encounter
--- OUTSIDE RECORDS SUMMARY | 2024-03-15 01:56 | XMS_ITS | Encounter Summary ---
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 S RECEPTIONIST * Telephone Encounter - Halina Jama - 03/29/2021 9:56 AM CST Pt called states she was at [facility] on 03/25 and was prescribed Alprazolam .25 mg. Pt requesting refill sent to [facility] pharmacy in [place]. Contact: S RECEPTIONIST * Telephone Encounter - Sofia Goodson RN - 03/29/2021 9:40 AM SALES RECEPTIONIST Pt daughter called to update that pt is on alprazolam prn. Will add to med lsit S RECEPTIONIST * Telephone Encounter - Halina Jama - 03/29/2021 8:55 AM CST Izzy requesting a call from DALE Pearl. Did not leave any details. ?? Contact:[phone] S RECEPTIONIST * Telephone Encounter - Ryanne Pierre RN - 03/27/2021 3:19 PM CST Pt needed a f/u appt , f/u made S RECEPTIONIST * Telephone Encounter - Cameron Lee - 03/27/2021 2:57 PM CST Izzy requesting a call from nurse Pearl. Contact:[phone] S RECEPTIONIST documented in this encounter Plan of Treatment Not on file documented as of this encounter Visit Diagnoses Not on filedocumented in this encounter Historical Medications * This list may reflect changes made after this encounter. ALPRAZolam (XANAX) 0.25 mg tablet Take 1 tablet (0.25 mg total) by mouth 2 (two) times a day as needed added in this encounter Care Teams Research Professional Relationship Specialty Start Date End Date Sanjeev Webster DO [address] [place] [id number] PCP - General Family Medicine 03/11/21 documented as of this encounter
--- OUTSIDE RECORDS SUMMARY | 2024-03-15 01:56 | XMS_ITS | Encounter Summary ---
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 Asking if she knows who has been filling pts warfarin? * Telephone Encounter - Ryanne Pierre RN - 07/30/2021 4:16 PM CDT Noted. Will await quest result * Telephone Encounter - Halina Jama - 07/30/2021 4:12 PM CDT Nurse Silvana called from Dr. Webster office (PCP) states pt called their office to notify them that she got her INR drawn today at [facility]. Silvana called to make us aware of this. Contact: documented in this encounter Plan of Treatment Not on file documented as of this encounter Visit Diagnoses Not on filedocumented in this encounter Care Teams Supervisor Gas Meter Repair Relationship Specialty Start Date End Date Sanjeev Webster DO [address] [place] [id number] PCP - General Family Medicine 03/11/21 documented as of this encounter
--- OUTSIDE RECORDS SUMMARY | 2024-03-15 01:56 | XMS_ITS | Encounter Summary ---
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 Gender Identity Not on file Sexual Orientation Not on file documented as of this encounter Plan of Treatment Not on file documented as of this encounter Procedures Procedure Name Priority Date/Time Associated Diagnosis Comments PROTIME-INR Routine 03/15/2021 documented in this encounter Results * (ABNORMAL) Protime-INR (03/15/2021) INR 1.20(A) 0.9 - 1.1 [facility] Blood specimen (specimen) us Historical Provider LAB BLOOD ORDERABLES Christen farooq Result [facility] documented in this encounter Visit Diagnoses Diagnosis History of mechanical aortic valve replacement- Primary Paroxysmal atrial flutter (CMS/HCC) (HCC) documented in this encounter Care Teams Tire Installer Relationship Specialty Start Date End Date Sanjeev Webster DO [address] [place] [id number] PCP - General Family Medicine 03/11/21 documented as of this encounter
--- OUTSIDE RECORDS SUMMARY | 2024-03-15 01:56 | XMS_ITS | Encounter Summary ---
Author Organization [facility] Medical [facility] Address [address] [facility] [address] [place] [address] Care Team Providers Care Leather Production Machine Operator Name Role Phone Sanjeev Webster DO Primary Care Provide r Reason for Visit * Reason Comments Hospital Follow Up [facility] Dx : Acute Dyspnea, Afib * Consultation (Routine) - Closed Specialty Diagnoses / Procedures Referred By Ian malagon Referred To Contact Cardiology Diagnoses Atrial fibrillation, unspecified type (HCC) Sanjeev Webster DO [address] [place] [address] Phone: tel: fax: [facility] Cardiology [address] [address] Phone: tel: fax: Referral ID Status Reason Start Date Expiration Date V isits Requested Visits Authorized [id number] Closed Specialty Services Required 03/30/2021 09/27/2021 6 6 Encounter Details Date Type Department Care Team (Late st Contact Info) Description 04/02/2021 1:00 PM QUALITY ASSURANCE ASSISTANT Office Visit [facility] Medical [facility] Cardiology [address] [address] Ana Maria Hess NP [address] [facility] [address] [place] [address] Other form of dyspnea (Primary Dx); Paroxysmal atrial flutter (CMS/HCC) (HCC); On amiodarone therapy; H/O mechanical aortic valve replacement; Chronic anticoagulation; 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; Atrial fibrillation, unspecified type (HCC) Social History Tobacco Use Types Packs/Day [...] on file 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 ASSURANCE 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 Gender Identity Not on file Sexual Orientation Not on file documented as of this encounter Last Filed Vital Signs Vital Sign Reading Time Taken Comments Blood Pressure 148/80 04/02/2021 1:02 PM QUALITY ASSURANCE ASSISTANT Pulse 75 04/02/2021 1:02 PM QUALITY ASSURANCE ASSISTANT Temperature - - Respiratory Rate - - Oxygen Saturation 94% 04/02/2021 1:02 PM QUALITY ASSURANCE ASSISTANT Inhaled Oxygen Concentration - - Weight 87.3 kg (192 lb 8 oz) 04/02/2021 1:02 PM QUALITY ASSURANCE ASSISTANT Height 165.1 cm (5' 5 ) 04/02/2021 1:02 PM QUALITY ASSURANCE ASSISTANT Body Mass Index 32.03 04/02/2021 1:02 PM QUALITY ASSURANCE ASSISTANT documented in this encounter Progress Notes * Ana Maria Hess NP - 04/02/2021 1:00 PM CST Images from the original note were not included. [facility] Cardiology [address] [place] [address] Date of Visit: 04/02/2021 Patient ID: Radha Huynh 1945 Chief Complaint: Radha Huynh is a 75 y.o. female who is an established patient of Dr. Paredes with a history of mechanical aortic valve, PAF and CAD, returning to the office for hospital follow-up after she wasevaluated for dyspnea. History of Present Illness: Radha Huynh is [...] Going to see PCP. 08/12/17 Admitted to [facility] in June due to SOB found to be in A.Fib and started on Diltiazem and Metoprolol. Was discharged still with TORRES then sxs continued to worsen and readmitted to [facility] in July. She was started on Sotalol (Dilt and Metoprolol stopped). She spontaneously converted to SR prior to ALFERD/CV. SOB resolved, back at baseline no complaints. [...] little. She still has not seen a Ink Maker. Not using CPAP for a year. She later admits she is only taking maybe 4 of her medicines but she is not sure if she is taking Sotalol. 02/08/19 CAT visit: Patient presented to [facility] on 12/17/18 complaint of shortness of [...] 04/02/21 HFU w/ CAT- she went into [facility] on 03/21/21 with complaint of worsening [...] note from myself, 03/21/21 inpatient notes from [facility] including the H&P, consultation note from Dr. Carrera, chest x-ray report, CT chest report, discharge summary. I have also reviewed: allergies, current medications, past family history, past medical history, past social history, past surgical history and problem list Review of Systems Constitutional: Negative for diaphoresis, fever, malaise/fatigue, weight gain and weight loss. HENT: Negative for hearing loss. Eyes: Positive for visual disturbance. Cardiovascular: Negative for chest pain, claudication, leg swelling, orthopnea, palpitations, paroxysmal nocturnal dyspnea and syncope. Respiratory: Positive for shortness of breath (improved), sleep disturbances due to breathing and snoring. Negative for cough, hemoptysis and wheezing. Hematologic/Lymphatic: Does not bruise/bleed easily. Skin: Negative for poor wound healing and rash. Musculoskeletal: Positive for joint pain and myalgias. Gastrointestinal: Negative for heartburn, nausea and vomiting. Genitourinary: Negative for hematuria. Neurological: Negative for dizziness, headaches and light-headedness. Psychiatric/Behavioral: Positive for depression. The patient is not nervous/anxious. Vital Signs: BP 148/80 (BP Location: Left arm, Patient Position: Sitting) Pulse 75 Ht 165.1 cm (5' 5 ) Wt 87.3 kg (192 lb 8 oz) SpO2 94% BMI 32.03 kg/m?? Physical Exam Constitutional: General: She is [...] Polymyxin B ??? Skin Cleanser ??? Neosporin (Sws-Lwb-Zjlyw) [Vqpyznim-Ldbkjtejsf-Avhkuzmwd] Other (See comments) It makes things worse [...] wheezing, Disp: 1 Inhaler, Rfl: 0 ??? ALPRAZolam (XANAX) 0.25 mg tablet, Take 0.25 mg by mouth 2 (two) times a day as needed, Disp: ,Rfl: ??? amiodarone (PACERONE) 200 mg tablet, Take [...] breakfast, Disp: 30 tablet, Rfl: 11 ??? fluticasone propionate (FLONASE) 50 mcg/actuation nasal spray, Administer 1 spray into each nostril daily, Disp: , Rfl: ??? 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 Her symptoms improved after she was given and anxiolytic. Therefore it seems to be somewhat due to anxiety. No further testing is indicated at this time. She is maintaining sinus rhythm on amiodarone. She has had no episodes of palpitations. She is not bradycardic (metoprolol was discontinued 01/2020 due to bradycardia). When I saw her in the office 3weeks ago, I reviewed amiodarone toxicity monitoring with the patient. I reminded her to schedule aroutine eye exam. She had a TSH and LFTs checked in October and they were within normal limits. She had a chest x-ray last week when she was hospitalized and it was benign, PFTs 02/17/2020. She has a history of mechanical aortic valve replacement. She was scheduled for repeat echo next week, but because she had an echo during this recent hospitalization, I canceled that appointment. reviewed her echocardiogram that she had done during the hospitalization, showing the prost hetic valve had moderate degree of stenosis but an overall low mean gradient and the transvalvular velocities were lower than her previous echo in 2018. Therefore Dr. Carrera did not recommend ALFRED. We will continue periodically transthoracic echo for [...] of bradycardia. She remains on low-dose MING-inhibitor. Keep the previously scheduled follow-up visit with Dr. Paredes in September. Call us sooner with questions or concerns. MAI Guzman- Nurse Practitioner with [facility] [place] 5 for amiodarone toxicity monitoring This note is dictated and transcribed using [employer] Direct Software. Stove Fitter variancesmay occur. Despite proofreading, typographical errors may occur. ITY ASSURANCE ASSISTANT documented in this encounter Plan of Treatment Not on file documented as of this encounter Visit Diagnoses Diagnosis Other form of dyspnea- Primary Paroxysmal atrial flutter (CMS/HCC) (HCC) On amiodarone therapy H/O mechanical aortic valve replacement Chronic anticoagulation Encounter for long-term (current) use of anticoagulants 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 Atrial fibrillation, unspecified type (HCC) documented in this encounter Historical Medications * This list may reflect changes made after this encounter. fluticasone propionate (FLONASE) 50 mcg/actuation nasal spray Administer 1 spray into each nostril daily added in this encounter Orders Outpatient Referral Count Last Ordered Date Fir st Ordered Date AMB REFERRAL TO CARDIOLOGY 04/04/2021 documented in this encounter Care Teams Leather Production Machine Operator Relationship Specialty Start Date End Date Sanjeev Webster DO [address] [place] [id number] PCP - General Family Medicine 03/11/21 documented as of this encounter
--- OUTSIDE RECORDS SUMMARY | 2024-03-15 01:56 | XMS_ITS | Encounter Summary ---
Author Organization [facility] Address [address] [facility] [address] [place] [address] Care Team Providers Care Store Promoter Name Role Phone Sanjeev Webster Primary Care Provide r Reason for Referral * Diagnostic Imaging (Routine) - Closed Specialty Diagnoses / Procedures Referred By Contac t Referred To Contact Procedures XR Chest Pa Lateral [address] [facility] Medical [facility] Cardiology [address] [facility] [address] [place] [address] Phone: tel: fax: Referral ID Status Reason Start Date Expiration Date Visits Re quested Visits Authorized [id number] Closed 04/04/2021 05/04/2022 1 1 RER OPERATOR Encounter Details Date Type Department Care Team (Late st Contact Info) Description 04/04/[address] 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 Gender Identity Not on file Sexual Orientation Not on file documented as of this encounter Plan of Treatment Not on file documented as of this encounter Procedures Procedure Name Priority Date/Time Associated Diagnosis Comments XR CHEST PA LATERAL 2 VIEWS Schedule Routine, Read Routine (OP Routine) 03/21/2021 documented in this encounter Results * XR Chest Pa Lateral 2 Views (03/21/2021) Anatomical Region Laterality Modality Body, Chest N/A Radiographic Jennifer ging us Historical Provider MD VARGAS XR PROCEDURES Final R esult documented in this encounter Visit Diagnoses Not on filedocumented in this encounter Care Teams Store Promoter Relationship Specialty Start Date End Date Sanjeev Webster DO [address] [place] [address] PCP - General Family Medicine 03/11/21 documented as of this encounter
--- OUTSIDE RECORDS SUMMARY | 2024-03-15 01:56 | XMS_ITS | Encounter Summary ---
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
--- OUTSIDE RECORDS SUMMARY | 2024-03-15 01:56 | XMS_ITS | Encounter Summary ---
Author Organization [facility] Address [address] [facility] 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 ERN FELT HAT BLOCKER * Telephone Encounter - Easton Siddiqi MA - 02/28/2021 3:55 PM CST Dtr is calling [phone] to speak with Natalee about patients Inr ERN FELT HAT BLOCKER documented in this encounter Plan of Treatment Not on file documented as of this encounter Visit Diagnoses Not on filedocumented in this encounter Care Teams Fighting Vehicle Infantryman Relationship Specialty Start Date End Date Miscellaneous, Not In File PCP - General 08/07/2003/10/2 2 documented as of this encounter
--- OUTSIDE RECORDS SUMMARY | 2024-03-15 01:56 | XMS_ITS | Encounter Summary ---
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 Gender Identity Not on file Sexual Orientation Not on file documented as of this encounter Plan of Treatment Not on file documented as of this encounter Procedures Procedure Name Priority Date/Time Associated Diagnosis Comments PROTIME-INR Routine 03/12/2021 documented in this encounter Results * (ABNORMAL) Protime-INR (03/12/2021) INR 5.60(A) 0.9 - 1.1 [facility] Blood specimen (specimen) us Historical Provider LAB BLOOD ORDERABLES Christen farooq Result [facility] documented in this encounter Visit Diagnoses Diagnosis History of mechanical aortic valve replacement- Primary Paroxysmal atrial flutter (CMS/HCC) (HCC) documented in this encounter Care Teams Shelter Monitor Relationship Specialty Start Date End Date Sanjeev Webster DO [address] [place] [address] PCP - General Family Medicine 03/11/21 documented as of this encounter
--- OUTSIDE RECORDS SUMMARY | 2024-03-15 01:56 | XMS_ITS | Encounter Summary ---
Author Organization [facility] Address [address] [facility] [address] [place] [address] Care Team Providers Care Laborer Bituminous Paving Name Role Phone Miscellaneous, Not In File Primary Care Provider Unavailable Encounter Details Date Type Department Care Team (Latest Contact Info) Description 11/15/[address] 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 Gender Identity Not on file Sexual Orientation Not on file documented as of this encounter Plan of Treatment Not on file documented as of this encounter Procedures Procedure Name Priority Date/Time Associated Diagnosis Comments PROTIME-INR Routine 11/14/2020 documented in this encounter Results * (ABNORMAL) Protime-INR (11/14/2020) INR 3.90(A) 0.9 - 1.1 [facility] Blood specimen (specimen) us Historical Provider LAB BLOOD ORDERABLES Christen farooq Result [facility] documented in this encounter Visit Diagnoses Diagnosis History of mechanical aortic valve replacement- Primary Paroxysmal atrial flutter (CMS/HCC) (HCC) documented in this encounter Care Teams Laborer Bituminous Paving Relationship Specialty Start Date End Date Miscellaneous, Not In File PCP - General 08/07/2003/10/ 2 documented as of this encounter
--- OUTSIDE RECORDS SUMMARY | 2024-03-15 01:56 | XMS_ITS | Encounter Summary ---
Author Organization [facility] Address [address] 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 Pt reports the SOB has been increasing over the past week. Pt denies any fever, cough, or cp. Pt denies lower extremity swelling. Friend at the house able to check pts bp and hr, HR 50, BP 170/91. Pt advised to go toER for further evaluation. STANT PROFESSOR OF FORESTRY * Telephone Encounter - Wiley Halina - 03/21/2021 9:32 AM CST Pt called states she is SOB and feels her heart is beating fast. Reports no other symptoms at the moment. Requesting call back to discuss. Contact: STANT PROFESSOR OF FORESTRY documented in this encounter Plan of Treatment Not on file documented as of this encounter Visit Diagnoses Not on filedocumented in this encounter Care Teams Rattle Leak And Squeak Repairer Relationship Specialty Start Date End Date Sanjeev Webster DO [address] [place] [address] PCP - General Family Medicine 03/11/21 documented as of this encounter
--- OUTSIDE RECORDS SUMMARY | 2024-03-15 01:56 | XMS_ITS | Encounter Summary ---
Author Organization [facility] Address [address] [facility] [address] [place] [address] Care Team Providers Care Art Therapy Certified Supervisor Name Role Phone Miscellaneous, Not In File Primary Care Provider Unavailable Reason for Visit * Reason Onset Date Comments INR FU 11/14/2020 Encounter Details Date Type Department Care Team (Late st Contact Info) Description 11/14/2020 Telephone [facility] Cardiology [address] [facility] [address] [facility] [address] [place] [address] Christiane Carrera MD [address] [place] [address] INR FU Social History Tobacco Use Types Packs/Day Years [...] on file 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 Letter mailed to pts home. * Telephone Encounter - Ryanne Pierre RN - 11/15/2020 3:59 PM CDT Attempted to call pt again, NA, VM full * Telephone Encounter - Ryanne Pierre RN - 11/15/2020 9:34 AM CDT Attempted to reach pt and her sister several times, mailbox full, no vm space avail. Will cont to try to reach pt. * Telephone Encounter - Christiane Carrera MD - 11/14/2020 6:05 PM CDT Pt went to ER after a fall, has a head contusion and fx'd wrist. INR was 3.9. DR. Ordoñez directed that one dose warfarin should be held. Discharged fr the ER, on 6 mg warfarin daily. Please call pt and see if that is correct and obtain a repeat INR soon, thanks. documented in this encounter Plan of Treatment Not on file documented as of this encounter Visit Diagnoses Not on filedocumented in this encounter Care Teams Art Therapy Certified Supervisor Relationship Specialty Start Date End Date Miscellaneous, Not In File PCP - General 08/07/20 12/2 2 documented as of this encounter
--- OUTSIDE RECORDS SUMMARY | 2024-03-15 01:56 | XMS_ITS | Encounter Summary ---
Author Organization [facility] Address [address] [facility] [address] [place] [address] Care Team Providers Care Respite Worker Name Role Phone Sanjeev Webster DO Primary Care Provide r Encounter Details Date Type Department Care Team (Late st Contact Info) Description 03/21/2021 Orders Only [facility] Information Management [address] [place] [address] Scanning, Provider Social History Tobacco Use Types [...] on file Legal Sex Female 6:10 AM BARKEEP Gender Identity Not on file Sexual Orientation Not on file documented as of this encounter Plan of Treatment Not on file documented as of this encounter Procedures Procedure Name Priority Date/Time Associated Diagnosis Comments SCAN - RADIOLOGY/IMAGING 03/21/2021 documented in this encounter Results * SCAN - RADIOLOGY/IMAGING (03/21/2021) Anatomical Region Laterality Modality Other us Provider Scanning Final Result documented in this encounter Visit Diagnoses Not on filedocumented in this encounter Care Teams Respite Worker Relationship Specialty Start Date End Date Sanjeev Webster DO [address] [place] [address] PCP - General Family Medicine 03/11/21 documented as of this encounter
--- OUTSIDE RECORDS SUMMARY | 2024-03-15 01:56 | XMS_ITS | Encounter Summary ---
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 Gender Identity Not on file Sexual Orientation Not on file documented as of this encounter Plan of Treatment Not on file documented as of this encounter Procedures Procedure Name Priority Date/Time Associated Diagnosis Comments CARDIOLOGY DOCUMENT SCAN Routine 03/22/2021 documented in this encounter Results * SCAN - CARDIOLOGY (03/22/2021) Anatomical Region Laterality Modality Other Coy Graham MD CV CARDIAC SERVICES PROCEDURES F inal Result documented in this encounter Visit Diagnoses Not on filedocumented in this encounter Care Teams Manager Play Relationship Specialty Start Date End Date Sanjeev Webster DO [address] [place] [address] PCP - General Family Medicine 03/11/21 documented as of this encounter
--- OUTSIDE RECORDS SUMMARY | 2024-03-15 01:57 | XMS_ITS | Encounter Summary ---
Author Organization [facility] Medical Group Address [address] [facility] [address] [place] [address] Care Team Providers Care Peoplesoft Developer Name Role Phone Miscellaneous, Not In File Primary Care Provider Unavailable Reason for Referral * Cardiology (Routine) - Closed Specialty Diagnoses / Procedures Referred By Contac t Referred To Contact Procedures ECG 12 lead [facility] Medical [facility] Cardiology [address] [place] [address] Phone: tel: fax: Referral ID Status Reason Start Date Expiration Date Visits Re quested Visits Authorized [id number] Closed 08/29/2020 09/28/2021 1 1 Encounter Details Date Type Department Care Team (Late st Contact Info) Description 08/29/2020 Orders Only [facility] Medical [facility] Cardiology [address] [place] [address] Casi Quinonez MD [address] [place] [address] Social History Tobacco Use Types Packs/Day [...] on file 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 Gender Identity Not on file Sexual Orientation Not on file documented as of this encounter Plan of Treatment Not on file documented as of this encounter Procedures Procedure Name Priority Date/Time Associated Diagnosis Comments ECG 12-LEAD Routine 08/07/2020 documented in this encounter Results * ECG 12 lead (08/07/2020) us Historical Provider ECG ORDERABLES Final Res ult documented in this encounter Visit Diagnoses Not on filedocumented in this encounter Care Teams Peoplesoft Developer Relationship Specialty Start Date End Date Miscellaneous, Not In File PCP - General 08/07/20 1/2 2 documented as of this encounter
--- OUTSIDE RECORDS SUMMARY | 2024-03-15 01:57 | XMS_ITS | Encounter Summary ---
Author Organization [facility] Medical [facility] Address [address] [address] Care Team Providers Care Chief Lock Operator Name Role Phone Miscellaneous, Not In File Primary Care Provider Unavailable Encounter Details Date Type Department Care Team (Latest Contact Info) Description 08/23/2020 Anticoagulation Visit [facility] Medical [facility] Cardiology [address] 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
--- OUTSIDE RECORDS SUMMARY | 2024-03-15 01:57 | XMS_ITS | Encounter Summary ---
Author Organization [facility] Medical Group Address [address] [facility] [address] [place] [address] Care Team Providers Care Fellmongery Worker Name Role Phone Miscellaneous, Not In File Primary Care Provider Unavailable Encounter Details Date Type Department Care Team (Late st Contact Info) Description 08/30/2020 Telephone [facility] Group Cardiology [address] [facility] [address] [place] [address] Maurice Paredes MD [address] [facility] [address] [place] [address] Social History Tobacco Use Types [...] on file 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 Will contact pt with instructions. * Telephone Encounter - Ryanne Pierre RN - 08/30/2020 1:39 PM CDT Lm oat office. She will call me back. * Telephone Encounter - Tiffanie Cardenas - 08/30/2020 12:24 PM CDT Harshal from dr reed novak called needing to speak with a nurse about patient. Cb # [phone] documented in this encounter Plan of Treatment Not on file documented as of this encounter Visit Diagnoses Not on filedocumented in this encounter Care Teams Fellmongery Worker Relationship Specialty Start Date End Date Miscellaneous, Not In File PCP - General 08/07/20 1/2/2 2 documented as of this encounter
--- OUTSIDE RECORDS SUMMARY | 2024-03-15 01:57 | XMS_ITS | Encounter Summary ---
Author Organization [facility] Address [address] [place] [address] Care Team Providers Care Pottery Decorator Name Role Phone Hong Holder MD Primary Care Provider [phone] Reason for Visit * Reason Comments Follow-up 2 wk follow up on HT N, CHF, CAD Encounter Details Date Type Department Care Team (Late st Contact Info) Description 06/14/2019 10:00 AM CDT Telemedicine [facility] Medical [facility] Cardiology [address] [facility] [address] [place] [address] Ana Maria Hess NP [address] [address] Bradycardia (Primary Dx); Paroxysmal atrial flutter (CMS/HCC); Hypertensive heart disease with chronic diastolic congestive heart failure (CMS/HCC) Social History Tobacco Use Types Packs/Day Years Used Date Smoking Tobacco: Never Smokeless Tobacco: Never Alcohol Use Standard Drinks/Week Comments No 0 (1 standard drink = 0.6 oz pur e alcohol) Comments Unknown Sex and Gender Information Value Date Recorded Sex Assigned at Not on file 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 No / Unsure 06/07/2019 2:38 PM CDT documented as of this encounter Last Filed Vital Signs Vital Sign Reading Time Taken Comments Blood Pressure 146/76 06/14/2019 9:59 AM CDT Pulse 54 06/14/2019 9:59 AM CDT Temperature - - Respiratory Rate - - Oxygen Saturation - - Inhaled Oxygen Concentration - - Weight 78.5 kg (173 lb) 06/14/2019 9:59 AM CDT Height 162.6 cm (5' 4 ) 06/14/2019 9:59 AM CDT Body Mass Index 29.7 06/14/2019 9:59 AM CDT documented in this encounter Progress Notes * Ana Maria Hess NP - 06/14/2019 10:00 AM CDT [facility] Date of Visit: 06/14/2019 Patient ID: Radha Huynh 1945 This was a telemedicine visit with Radha Huynh alone which took place via Telephone. During the visit, I was located at [facility] Cardiology in [place] and the patient was located at her home. The session started at 1000 and ended at 1021 (there was an additional 2 minutes of chart review). The patient has been informed that the visit may not be secure and acknowledged the information. I have explained the option of participating in a telephone or video visit during the [facility] [place] [address] emergency to the patient. After being given an opportunity to ask questions about and discuss this type of visit, the patient verbally consented to proceeding with the telephone / video visit. The patient understands that this service replaces an office visit and they may be billed and/or responsible for any applicable copayments. Chief Complaint: Radha Huynh is a 74 y.o. female who is an established patient of Dr. Paredes with history of paroxysmal atrial flutter having follow-up after her medications were changed because of bradycardia. History of Present Illness: Radha Huynh is a 74 y.o. female [...] see PCP. 08/12/17 Admitted to [facility] in June due to SOB found to be in A.Fib and started on Diltiazem and Metoprolol. Was discharged still with TORRES then sxs continued to worsen and readmitted to [facility] in July. She was started on Sotalol [...] little. She still has not seen a Employee Communications Specialist. Not using CPAP for a year. She later admits she is only taking maybe 4 of her medicines but she is not sure if she is taking Sotalol. New LBBB was noted, sopatient returned on 12/13/18 for stress test which was negative for ischemia. 02/08/19 CAT visit: Patient presented to [facility] on 12/17/18 complaint of shortness of breath. [...] following her INRs. She denies any bleeding problems.ECG showed sinus rhythm, although difficult interpretation due to [...] lisinopril was stopped for concerns of hypotension. Records that I personally reviewed on the day of this visit include: (the interpretation is outlined in the HPI above) 05/06/[address] Paredes, 06/07/2019 televisit note from myself, 12/16/2018 inpatient cardiology consult note from [facility] I have also reviewed: allergies, current medications, past family history, past medical history, past social history, past surgical history and problem list Review of Systems Cardiovascular: Negative for chest pain, dyspnea on exertion, near-syncope and syncope. Neurological: Positive for loss of balance. Negative for dizziness and light-headedness. Vital Signs: BP 146/76 (BP Location: Left arm, Patient Position: Sitting) Pulse 54 Ht 162.6 cm (5' 4 ) Wt 78.5 kg (173 lb) BMI 29.70 kg/m?? Physical Exam The patient sounded in no distress over the phone, asked appropriate questions and answer questionsappropriately. Allergies Allergen Reactions ??? Bacitracin ??? Benzalkonium ??? Gramicidin D ??? Hydrocortisone ??? Neomycin ??? Polymyxin B ??? Skin Cleanser Current Outpatient Medications: ??? amiodarone (PACERONE) 200 mg tablet, Take 1 tablet (200 mg total) by mouth daily (Patient taking differently: Take 200 mg by mouth daily Takes 1/2 tablet daily am 1/2 tablet pm), Disp: 90 tablet,Rfl: 3 ??? atorvastatin (LIPITOR) 10 mg tablet, Take 1 tablet (10 mg total) by mouth nightly, Disp: 30 tablet, Rfl: 11 ??? cholecalciferol (VITAMIN D-3) 1,000 unit, Take 1,000 Units by mouth daily., Disp: , Rfl: ??? cyanocobalamin (Vitamin B-12) 1,000 mcg tablet, Take 1,000 mcg by mouth daily, Disp: , Rfl: ??? DOXYCYCLINE 100 mg tablet, Take 100 mg by mouth 2 (two) times a day, Disp: , Rfl: 0 ??? ferrous sulfate 325 mg (65 mg of elemental iron) tablet, Take 65 mg of elemental iron by mouth 2 (two) times a day., Disp: , Rfl: ??? fluticasone (FLONASE) 50 mcg/actuation nasal spray, Administer 1 spray into each nostril daily., Disp: , Rfl: ??? furosemide (LASIX) 40 mg tablet, take 1 tablet (40MG) by oral route every day (Patient taking differently: 40 mg 1/2 tablet in am 1/2 tablet in pm), Disp: , Rfl: 0 ??? gabapentin (NEURONTIN) 300 mg capsule, take 1 capsule by oral route 2 times every day, Disp: 0,Rfl: 0 ??? HYDROcodone-acetaminophen (LORCET 10-650) 10-650 mg per tablet, take 1 tablet by oral route every 4 - 6 hours as needed for pain, Disp: , Rfl: 0 ??? lisinopril (PRINIVIL,ZESTRIL) 2.5 mg tablet, Take 2.5 mg by mouth daily, Disp: , Rfl: 3 ??? metFORMIN (GLUCOPHAGE) 1,000 mg tablet, take 1 tablet (1000MG) by oral route 2 times every day with morning and evening meals, Disp: , Rfl: 0 ??? metoprolol tartrate (LOPRESSOR) 25 mg immediate release tablet, Take 0.5 tablets (12.5 mg total) by mouth 2 (two) times a day (Patient taking differently: Take 6.25 mg by mouth 2 (two) times a day ), Disp: 90 tablet, Rfl: 3 ??? omeprazole (PriLOSEC) 20 mg capsule, Take 20 mg by mouth daily., Disp: , Rfl: ??? PROAIR HFA 90 mcg/actuation inhaler, , Disp: , Rfl: 11 ??? rOPINIRole (REQUIP) 0.25 mg tablet, Take 0.25 mg by mouth nightly, Disp: , Rfl: ??? traZODone (DESYREL) 50 mg tablet, 50 mg daily, Disp: , Rfl: ??? venlafaxine 150 mg tablet extended release 24hr 24 hr tablet, take 1 tablet by oral route everyday in the morning at the same time each day with food, Disp: , Rfl: 0 ??? warfarin (COUMADIN) 10 mg tablet, take 1 tablet (10MG) by oral route every evening, Disp: , Rfl: 0 ??? warfarin (COUMADIN) 2 mg tablet, take 1 tablet (2MG) by oral route every evening Dr Maxwell manages, Disp: , Rfl: 0 Assessment: Diagnoses and all orders for this visit: Bradycardia (Primary) Paroxysmal atrial flutter (CMS/HCC) Hypertensive heart disease with chronic diastolic congestive heart failure (CMS/HCC) Plan/Recommendations: She felt better with the reduction in her metoprolol and furosemide in late April. However, her heart rate remained low, so last week I instructed her to further reduce the metoprolol. Now her heart rate has stabilized to 50-60 bpm so I instructed her to remain on the very low-dose metoprolol tartrate 6.25 mg b.i.d. But now her blood pressure is elevating. Her lisinopril was stopped last December when she was hospitalized for fast atrial flutter and metoprolol was started. I advised her to restart the lisinopril at her previous dose of 2.5 mg daily. She still has a good supply of these tablets at home so she does not need a new prescription right now. I will follow-up with her in 2 more weeks for another televisit to monitor her blood pressure. And we will keep her previously scheduled routine follow-up to see Dr. Paredes in 3 months. Ana Maria Hess, MAI- Nurse Practitioner with [facility] This note is dictated and transcribed using [employer] Direct Software. Tap Builder variancesmay occur. Despite proofreading, typographical errors may occur. documented in this encounter Plan of Treatment Not on file documented as of this encounter Visit Diagnoses Diagnosis Bradycardia- Primary Other specified cardiac dysrhythmias Paroxysmal atrial flutter (CMS/HCC) (HCC) Hypertensive heart disease with chronic diastolic congestive heart failure (CMS/HCC) (HCC) documented in this encounter Historical Medications * This list may reflect changes made after this encounter. rOPINIRole (REQUIP) 0.25 mg tablet Take 0.25 mg by mouth nightly 01/13/2020 added in this encounter Care Teams Pottery Decorator Relationship Specialty Start Date End Date Hong Holder MD [address] [place] [id number] PCP - General 06/06/16 01/11/20 documented as of this encounter
--- OUTSIDE RECORDS SUMMARY | 2024-03-15 01:57 | XMS_ITS | Encounter Summary ---
Author Organization [facility] Address [address] [place] [address] Care Team Providers Care Deli Cutter Slicer Name Role Phone Miscellaneous, Not In File Primary Care Provider Unavailable Encounter Details Date Type Department Care Team (Late st Contact Info) Description 08/22/2020 Telephone [facility] Cardiology [address] [place] [address] Maurice Paredes MD [address] [address] [place] [address] Social History Tobacco Use Types [...] on file 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 pt should be getting her INR checked on 08/30. (last INR was lowand pt's dose was increased ) will let pt know when next INR result comes back. Will dose accordingly with new INR goal per AD * Telephone Encounter - Maurice Paredes MD - 08/22/2020 5:58 PM CDT Technically goal INR 2.5-3.5 is acceptable given AFib in conjunction with mechanical aortic valve. We should aim to keep her INR between 2.5 and 3. * Addendum Note - Gemini Holliday RN - 08/22/2020 4:36 PM CDTAddended by: GEMINI HOLLIDAY on: 08/22/2020 04:36 PM Modules accepted: Orders * Telephone Encounter - Gemini Holliday RN - 08/22/2020 4:13 PM CDT pt needing us to dose her warfarin as her previous doctor up and left her according to the pt. I confirmed w/ her that she is finding another pcp to see but I assured her we could dose her warfarin from now on. Asked pt if she would be interested in home INR machine and pt is infact interested. Will fill out and fax over- Pt states she is taking 6 mg every day. Her last INR was 1.5 on 08/15. Pt states that she was given lovenox in hospital but they discharged her and told her to follow up with someone and supposedly didn't make sure her INR was at goal.pt states they took her off of her diuretics as well and she doesn't know why but she has upcoming appt w/ patricia On 08/28/20. Pt has mechanical aortic valve & hx of afib. Pt states her previous INR goal was 2.0 to 3.0 I advised pt to get INR checked first thing in the morning. I [facility] [place]. Pt knows we will call her with results of her INR tomorrow and adjust her dose. Will send to Dr. Paredes to make sure he wants her goal to be 2.0-3.0 Please advise! * Telephone Encounter - Cesilia Ramirez MA - 08/22/2020 3:32 PM CDT Pt calling wanting to s/w nurse in regards to INR questions [phone] documented in this encounter Plan of Treatment Scheduled Orders Name Type Priority Associated Diagnoses Orde r Schedule Protime-INR Lab Routine H/O mechanical aortic valve replacement Chronic anticoagulation weekly for 52 Occurrences starting 08/22/2020 until 08/22/2021, 8 completed documented as of this encounter Procedures Procedure Name Priority Date/Time Associated Diagnosis Comments PROTIME-INR Routine 08/12/2021 2:17 PM CDT H/O mechanical aortic valve replacement Chronic anticoagulation PROTIME-INR Routine 07/30/2021 3:03 PM CDT H/O mechanical aortic valve replacement Chronic anticoagulation PROTIME-INR Routine 03/15/2021 1:42 PM CLAIM BENEFIT SPECIALIST H/O mechanical aortic valve replacement Chronic anticoagulation PROTIME-INR Routine 03/12/2021 9:50 AM CLAIM BENEFIT SPECIALIST H/O mechanical aortic valve replacement Chronic anticoagulation PROTIME-INR Routine 02/19/2021 2:58 PM CLAIM BENEFIT SPECIALIST H/O mechanical aortic valve replacement Chronic anticoagulation PROTIME-INR Routine 10/22/2020 2:27 PM CDT H/O mechanical aortic valve replacement Chronic anticoagulation PROTIME-INR Routine 10/02/2020 1:58 PM CDT H/O mechanical aortic valve replacement Chronic anticoagulation PROTIME-INR Routine 08/23/2020 7:41 AM CDT H/O mechanical aortic valve replacement Chronic anticoagulation documented in this encounter Results * (ABNORMAL) Protime-INR (08/12/2021 2:17 PM CDT) INR 1.9(H) [facility] Comment: Reference Range ? 0.9-1.1 Moderate-intensity Warfarin Therapy 2.0-3.0 Higher-intensity Warfarin Therapy ?? 3.0-4.0 PT 18.2(H) 9.0 - 11.5 sec [facility] Comment: For additional information, please refer to http://Ascendant Dx/faq/UCC772 (This link is being provided for informational/ educational purposes only.) Blood specimen (specimen) 08/12/2021 2:17 PM CDT 08/12/2021 2:17 PM CDT Maurice Paredes MD LAB BLOOD ORDERABLES Fin al Result Performing Organization Address City/State/[facility] Co de Phone Number [facility] [address] [place] [address] * (ABNORMAL) Protime-INR (07/30/2021 3:03 PM CDT) INR 2.0(H) [facility] Comment: Reference Range ? 0.9-1.1 Moderate-intensity Warfarin Therapy 2.0-3.0 Higher-intensity Warfarin Therapy ?? 3.0-4.0 PT 19.3(H) 9.0 - 11.5 sec [facility] Comment: For additional information, please refer to http://[address].Koogame/faq/ZFF517 (This link is being provided for informational/ educational purposes only.) Blood specimen (specimen) 07/30/2021 3:03 PM CDT 07/30/2021 3:03 PM CDT Maurice Paredes MD LAB BLOOD ORDERABLES Fin al Result Performing Organization Address [facility] de Phone Number JOHN [facility] [address] [address] * (ABNORMAL) Protime-INR (03/15/2021 1:42 PM CLAIM BENEFIT SPECIALIST) INR 1.2(H) [facility] Comment: Reference Range ? 0.9-1.1 Moderate-intensity Warfarin Therapy 2.0-3.0 Higher-intensity Warfarin Therapy ?? 3.0-4.0 PT 12.0(H) 9.0 - 11.5 sec [facility] Comment: For additional information, please refer to http://education.Koogame/faq/VRF562 (This link is being provided for informational/ educational purposes only.) Blood specimen (specimen) 03/15/2021 1:42 PM CLAIM BENEFIT SPECIALIST 03/15/2021 1:43 PM CLAIM BENEFIT SPECIALIST Maurice Paredes MD LAB BLOOD ORDERABLES Fin al Result Performing Organization Address [facility] de Phone Number [facility] [address] [place] [address] * (ABNORMAL) Protime-INR (03/12/2021 9:50 AM CLAIM BENEFIT SPECIALIST) INR 5.6(H) [facility] Comment: Verified by repeat analysis. Reference Range ? 0.9-1.1 Moderate-intensity Warfarin Therapy 2.0-3.0 Higher-intensity Warfarin Therapy ?? 3.0-4.0 PT 51.8(H) 9.0 - 11.5 sec [facility] Comment: Verified by repeat analysis. For additional information, please refer to http://[address].Koogame/faq/KFI928 (This link is being provided for informational/ educational purposes only.) Blood specimen (specimen) 03/12/2021 9:50 AM CLAIM BENEFIT SPECIALIST 03/12/2021 9:50 AM CLAIM BENEFIT SPECIALIST Narrative [facility] - 03/12/2021 5:41 PM CLAIM BENEFIT SPECIALIST FASTING:NO FASTING: NO Maurice Paredes MD LAB BLOOD ORDERABLES Fin al Result Performing Organization Address [facility] de Phone Number [facility] [address] [place] [address] * (ABNORMAL) Protime-INR (02/19/2021 2:58 PM CLAIM BENEFIT SPECIALIST) INR 4.7(H) [facility] Comment: Reference Range ? 0.9-1.1 Moderate-intensity Warfarin Therapy 2.0-3.0 Higher-intensity Warfarin Therapy ?? 3.0-4.0 PT 43.5(H) 9.0 - 11.5 sec [facility] Comment: For additional information, please refer to http://[address].Koogame/faq/AKP402 (This link is being provided for informational/ educational purposes only.) Blood specimen (specimen) 02/19/2021 2:58 PM CLAIM BENEFIT SPECIALIST 02/19/2021 2:59 PM CLAIM BENEFIT SPECIALIST Maurice Paredes MD LAB BLOOD ORDERABLES Fin al Result Performing Organization Address [facility] de Phone Number [facility] [address] [place] [address] * (ABNORMAL) Protime-INR (10/22/2020 2:27 PM CDT) INR 3.6(H) [facility] Comment: Reference Range ? 0.9-1.1 Moderate-intensity Warfarin Therapy 2.0-3.0 Higher-intensity Warfarin Therapy ?? 3.0-4.0 PT 34.5(H) 9.0 - 11.5 sec [facility] Comment: For additional information, please refer to http://[address].Koogame/faq/DXW703 (This link is being provided for informational/ educational purposes only.) Blood specimen (specimen) 10/22/2020 2:27 PM CDT 10/22/2020 2:28 PM CDT Maurice Paredes MD LAB BLOOD ORDERABLES Fin al Result Performing Organization Address [facility] de Phone Number [facility] [address] [facility] [place] [address] * (ABNORMAL) Protime-INR (10/02/2020 1:58 PM CDT) INR 2.4(H) [facility] Comment: Reference Range ? 0.9-1.1 Moderate-intensity Warfarin Therapy 2.0-3.0 Higher-intensity Warfarin Therapy ?? 3.0-4.0 PT 24.0(H) 9.0 - 11.5 sec [facility] Comment: For additional information, please refer to http://Ascendant Dx/faq/TYO946 (This link is being provided for informational/ educational purposes only.) Blood specimen (specimen) 10/02/2020 1:58 PM CDT 10/02/2020 1:59 PM CDT Maurice Paredes MD LAB BLOOD ORDERABLES Fin al Result Performing Organization Address [facility] de Phone Number [facility] [address] [place] [address] * (ABNORMAL) Protime-INR (08/23/2020 7:41 AM CDT) INR 1.4(H) [facility] Comment: Reference Range ? 0.9-1.1 Moderate-intensity Warfarin Therapy 2.0-3.0 Higher-intensity Warfarin Therapy ?? 3.0-4.0 PT 14.5(H) 9.0 - 11.5 sec John [facility] Comment: For additional information, please refer to http://education.Koogame/faq/UUT537 (This link is being provided for informational/ educational purposes only.) Blood specimen (specimen) 08/23/2020 7:41 AM CDT 08/23/2020 7:42 AM CDT [facility] - 08/23/2020 2:29 PM CDT FASTING:UNKNOWN FASTING: UNKNOWN us Maurice Paredes MD LAB BLOOD ORDERABLES [facility] al Result Performing Organization Address City/State/[facility] Co de Phone Number [facility] [address] [place] [address] documented in this encounter Visit Diagnoses Diagnosis H/O mechanical aortic valve replacement- Primary Chronic anticoagulation Encounter for long-term (current) use of anticoagulants documented in this encounter Orders Lab Orders Without Results Count Last Ordered D ate First Ordered Date PROTIME-INR 1 08/22/2020 documented in this encounter Care Teams Deli Cutter Slicer Relationship Specialty Start Date End Date Miscellaneous, Not In File PCP - General 08/07/20 1/2 2 documented as of this encounter
--- OUTSIDE RECORDS SUMMARY | 2024-03-15 01:57 | XMS_ITS | Encounter Summary ---
Author Organization [facility] Address [address] [place] [address] Care Team Providers Care Admissions Nurse Name Role Phone Hong Holder MD Primary Care Provider [phone] Encounter Details Date Type Department Care Team (Late st Contact Info) Description 05/09/2019 Telephone [facility] Medical [facility] Cardiology [address] [place] [address] Maurice Paredes MD [address] [facility] [address] [place], [place] [id number] Social History Tobacco Use Types Packs/Day Years Used Date Smoking Tobacco: Never Smokeless Tobacco: Never Alcohol Use Standard Drinks/Week Comments No 0 (1 standard drink = 0.6 oz pur e alcohol) Comments Unknown Sex and Gender Information Value Date Recorded Sex Assigned at Not on file 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 No / Unsure 06/07/2019 2:38 PM CDT documented as of this encounter Miscellaneous Notes * Telephone Encounter - Diana Cordova RN - 05/09/2019 2:50 PM INSURANCE SALES SUPERVISOR Noted. Will forward to Dr. Paredes. Patient coming in for EKG tomorrow and will discuss further. RANCE SALES SUPERVISOR * Telephone Encounter - Shanel Rosario - 05/09/2019 2:44 PM CST Incoming call from pt stating that she is now feeling better. [phone] RANCE SALES SUPERVISOR RANCE SALES SUPERVISOR documented in this encounter Plan of Treatment Not on file documented as of this encounter Visit Diagnoses Not on filedocumented in this encounter Care Teams Admissions Nurse Relationship Specialty Start Date End Date Hong Holder MD [address] [place] [address] PCP - General 06/06/16 01/11/20 documented as of this encounter
--- OUTSIDE RECORDS SUMMARY | 2024-03-15 01:57 | XMS_ITS | Encounter Summary ---
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
--- OUTSIDE RECORDS SUMMARY | 2024-03-15 01:57 | XMS_ITS | Encounter Summary ---
Author Organization 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
--- OUTSIDE RECORDS SUMMARY | 2024-03-15 01:57 | XMS_ITS | Encounter Summary ---
Author Organization [facility] Address [address] [place] [address] Care Team Providers Care Shellfish Sorter Name Role Phone Hong Holder MD Primary Care Provider [phone] Reason for Visit * Reason Comments Bradycardia EKG only visit Encounter Details Date Type Department Care Team (Late st Contact Info) Description 05/10/2019 2:45 PM CLIP BOLTER AND WRAPPER Procedure visit [facility] Cardiology [address] [place] [address] Bradycardia Social History Tobacco Use Types Packs/Day Years Used Date Smoking Tobacco: Never Smokeless Tobacco: Never Alcohol Use Standard Drinks/Week Comments No 0 (1 standard drink = 0.6 oz pur e alcohol) Comments Unknown Sex and Gender Information Value Date Recorded Sex Assigned at Not on file Legal Sex Female 6:10 AM CLIP BOLTER AND WRAPPER Gender Identity Not on file Sexual Orientation Not on file documented as of this encounter Last Filed Vital Signs Vital Sign Reading Time Taken Comments Blood Pressure 114/60 05/10/2019 3:36 PM CLIP BOLTER AND WRAPPER Pulse 56 05/10/2019 3:36 PM CLIP BOLTER AND WRAPPER Temperature - - Respiratory Rate - - Oxygen Saturation 94% 05/10/2019 3:36 PM CLIP BOLTER AND WRAPPER Inhaled Oxygen Concentration - - Weight - - Height - - Body Mass Index - - documented in this encounter Progress Notes * Margarita Cerrato MA - 05/10/2019 2:45 PM CST Patient here for EKG for rate check per Dr. Paredes's orders from last OV note on 05/06/2019. Patient states she is still SOB but no worse than before. BP 114/60, Right arm, sitting. HR 56 BPM. SpO2 94% on room air. EKG performed and given to MAI Guzman for review. BOLTER AND WRAPPER documented in this encounter Plan of Treatment Not on file documented as of this encounter Procedures Procedure Name Priority Date/Time Associated Diagnosis Comments ECG 12-LEAD Routine 05/06/2019 Paroxysmal atrial flutter (CMS/HCC) Coronary artery disease involving [place] coronary artery of [place] heart without angina pectoris documented in this encounter Results * ECG 12 lead (05/06/2019) Maurice Paredes MD ECG ORDERABLES Final Re sult documented in this encounter Visit Diagnoses Diagnosis Bradycardia Other specified cardiac dysrhythmias documented in this encounter Care Teams Shellfish Sorter Relationship Specialty Start Date End Date Hong Holder MD [address] [address] PCP - General 06/06/16 01/11/20 documented as of this encounter
--- OUTSIDE RECORDS SUMMARY | 2024-03-15 01:57 | XMS_ITS | Encounter Summary ---
Author Organization [facility] Facility Care Team Providers Care Wire Harness Design Engineer Name Role Phone Hong Holder MD Primary Care Provider [phone] Encounter Details Date Type Department Care Team (Latest Contact Info) Description 06/07/2019 Travel Social History Tobacco Use Types Packs/Day Years Used Date Smoking Tobacco: Never Smokeless Tobacco: Never Alcohol Use Standard Drinks/Week Comments No 0 (1 standard drink = 0.6 oz pur e alcohol) Comments Unknown Sex and Gender Information Value Date Recorded Sex Assigned at Not on file 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
--- OUTSIDE RECORDS SUMMARY | 2024-03-15 01:57 | XMS_ITS | Encounter Summary ---
Author Organization [facility] Address [address] [place] [address] Care Team Providers Care Technician Assistant Name Role Phone Miscellaneous, Not In File Primary Care Provider Unavailable Encounter Details Date Type Department Care Team (Late st Contact Info) Description 08/07/2020 Telephone [facility] Medical [facility] Cardiology [address], [place] [address] Maurice Paredes MD [address] [facility] [address] [place], [place] [id number] Social History Tobacco Use Types Packs/Day Years Used Date Smoking Tobacco: Never Smokeless Tobacco: Never Alcohol Use Standard Drinks/Week Comments No 0 (1 standard drink = 0.6 oz pur e alcohol) Comments Unknown Sex and Gender Information Value Date Recorded Sex Assigned at Not on file Legal Sex Female 6:10 AM HEELER Gender Identity Not on file Sexual Orientation Not on file documented as of this encounter Miscellaneous Notes * Telephone Encounter - Cris Saleh RN - 08/07/2020 4:17 PM CDT Spoke with patient, her speech is clear at the moment. Able to understand and she is comprehending what I am saying. Patient stated she was in the kitchen [place] when she suddenly felt light headedand dizzy, almost like she was going to pass out. Patient does not know if she thinks she had a stroke or not but has not sought treatment for the symptoms. Patient verbalized understanding that she will call her PCP and make an appointment to be seen malia, also that if this happens again she will call 911 and go to the ER. Coumadin refill was just sent in on July 31, 2020 Forwarding to AD as an FYI * Telephone Encounter - Sol Fuentes - 08/07/2020 4:01 PM CDT Patient thinks she had a stroke on Thursday, she started feeling dizzy, and could not hardly speak,she did not go to the emergency room, She would also like a refill on the warfarin. documented in this encounter Plan of Treatment Not on file documented as of this encounter Visit Diagnoses Not on filedocumented in this encounter Care Teams Technician Assistant Relationship Specialty Start Date End Date Miscellaneous, Not In File PCP - General 08/07/20 1/2 2 documented as of this encounter
--- OUTSIDE RECORDS SUMMARY | 2024-03-15 01:57 | XMS_ITS | Encounter Summary ---
Author Organization [facility] Address [address] [place] [address] Care Team Providers Care Driver'S License Reviewing Officer Name Role Phone Juan Pablo Dominguez MD Primary Care Provider Encounter Details Date Type Department Care Team (Late st Contact Info) Description 01/12/2020 Orders Only [facility] Cardiology [address] [place] [address] Maurice Paredes MD [address] [facility] [address] [place], [place] [id number] Dyspnea on exertion; 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 toxicity with usp use Social History Tobacco Use Types Packs/Day Years Used Date Smoking Tobacco: Never Smokeless Tobacco: Never Alcohol Use Standard Drinks/Week Comments No 0 (1 standard drink = 0.6 oz pur e alcohol) Comments Unknown Sex and Gender Information Value Date Recorded Sex Assigned at Not on file Legal Sex Female 6:10 AM MISSION COORDINATOR Gender Identity Not on file Sexual Orientation Not on file documented as of this encounter Plan of Treatment Not on file documented as of this encounter Visit Diagnoses Diagnosis Dyspnea on exertion Other dyspnea and respiratory abnormality 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 toxicity with termite renewal inspector use documented in this encounter Orders Imaging Orders Without Results Count Last Order ed Date First Ordered Date XR CHEST PA LATERAL 2 VIEWS 1 01/12/2020 documented in this encounter Care Teams Driver'S License Reviewing Officer Relationship Specialty Start Date End Date Juan Pablo Dominguez MD [address] [place] [address] PCP - General Family Medicine 01/12/20 08/06/20 documented as of this encounter
--- OUTSIDE RECORDS SUMMARY | 2024-03-15 01:57 | XMS_ITS | Encounter Summary ---
Author Organization [facility] Facility Care Team Providers Care Adjunct Professor Of Law Name Role Phone Hong Holder MD Primary Care Provider [phone] Encounter Details Date Type Department Care Team (Latest Contact Info) Description 08/03/2018 Travel Social History Tobacco Use Types Packs/Day Years Used Date Smoking Tobacco: Never Smokeless Tobacco: Never Alcohol Use Standard Drinks/Week Comments No 0 (1 standard drink = 0.6 oz pur e alcohol) Comments Unknown Sex and Gender Information Value Date Recorded Sex Assigned at Not on file Legal Sex Female 6:10 AM COOK PIE Gender Identity Not on file Sexual Orientation Not on file documented as of this encounter Plan of Treatment Not on file documented as of this encounter Visit Diagnoses Not on filedocumented in this encounter Care Teams Adjunct Professor Of Law Relationship Specialty Start Date End Date Hong Holder MD [address] [place] [address] PCP - General 06/06/16 01/11/20 documented as of this encounter
--- OUTSIDE RECORDS SUMMARY | 2024-03-15 01:57 | XMS_ITS | Encounter Summary ---
Author Organization [facility] Address [address] [place] [address] Care Team Providers Care It Applications Developer Name Role Phone Hong Holder MD Primary Care Provider [phone] Reason for Visit * Reason Comments 1 mo f/u Hypertension Congestive Heart Failure Peripheral Artery Disease * Cardiology (Routine) - Closed Specialty Diagnoses / Procedures Referred By Contac t Referred To Contact Cardiology Diagnoses Other chest pain Hong Holder MD Phone: tel: fax: [facility] Cardiology [address] [facility] [address] [place] [address] Phone: tel: fax: Referral ID Status Reason Start Date Expiration Date Visits Re quested Visits Authorized [id number] Closed 10/18/2018 08/11/2019 10 10 Encounter Details Date Type Department Care Team (Late st Contact Info) Description 06/07/2019 2:00 PM CDT Telemedicine [facility] Medical [facility] Cardiology [address] [facility] [address] [address] Ana Maria Hess NP [address] [facility] [address] [place] [id number] Paroxysmal atrial flutter (CMS/HCC) (Primary Dx); Bradycardia; Chronic anticoagulation; H/O mechanical aortic valve replacement Social History Tobacco Use Types Packs/Day Years Used Date Smoking Tobacco: Never Smokeless Tobacco: Never Alcohol Use Standard Drinks/Week Comments No 0 (1 standard drink = 0.6 oz pur e alcohol) Comments Unknown Sex and Gender Information Value Date Recorded Sex Assigned at Not on file Legal Sex Female 6:10 AM RECEIVING TELLER Gender Identity Not on file Sexual Orientation Not on file COVID-19 Exposure Response Date Recorded In the last month, have you been in contact with someone who was confirmed or suspected to have Coronavirus / COVID-19? No / Unsure 06/07/2019 2:38 PM CDT documented as of this encounter Last Filed Vital Signs Vital Sign Reading Time Taken Comments Blood Pressure 165/72 06/07/2019 2:15 PM CDT Pulse 43 06/07/2019 2:15 PM CDT Temperature - - Respiratory Rate - - Oxygen Saturation - - Inhaled Oxygen Concentration - - Weight 79.4 kg (175 lb) 06/07/2019 2:15 PM CDT Height 162.6 cm (5' 4 ) 06/07/2019 2:15 PM CDT Body Mass Index 30.04 06/07/2019 2:15 PM CDT documented in this encounter Ordered Prescriptions Prescription Sig Dispense Quantity Refills Last Filled Start Date End Date metoprolol tartrate (LOPRESSOR) 25 mg immediate release tabletIndications: Paroxysmal atrial flutter (CMS/HCC) (HCC) Take 0.5 tablets (12.5 mg total) by mouth 2 (two) times a day 90 tablet 3 06/07/2019 0 documented in this encounter Progress Notes * Ana Maria Hess NP - 06/07/2019 2:00 PM CDT [facility] Date of Visit: 06/07/2019 Patient ID: Radha Huynh [id number] This was a telemedicine visit with Radhachago Huynh alone which took place via Telephone. During the visit, I was located at [facility] in [place] and the patient was located at her home. The session started at 1425 and ended at 1437. The patient has been informed that the visit may not be secure and acknowledged the information. I have explained the option of participating in a telephone or video visit during the COVID-19 public health emergency to the patient. After being given [...] Admitted to [facility] in June due to SOB found to be in A.Fib and started on Diltiazem and Metoprolol. Was discharged still with TORRES then sxs continued to worsen and readmitted to [facility] in July. She was started on Sotalol [...] little. She still has not seen a Manager Developmental. Not using CPAP for a year. She later admits she is only taking maybe 4 of her medicines but she is not sure if she is taking Sotalol. New LBBB was noted, sopatient returned on 12/13/18 for stress test which was negative for ischemia. 02/08/19 CAT visit: Patient presented to [facility] on 12/17/18 complaint of shortness [...] goes away within 10 minutes of waking. Records that I personally reviewed on the day of this visit include: (the interpretation is outlined in the HPI above) 05/06/[address] Paredes, 05/10/2019 ECG and MA office note I have also reviewed: allergies, current medications, past family history, past medical history, past social history, past surgical history and problem list Review of Systems Cardiovascular: Positive for palpitations. Negative for chest pain, dyspnea on exertion, irregular heartbeat, near-syncope, paroxysmal nocturnal dyspnea and syncope. Respiratory: Positive for sputum production. Negative for shortness of breath and sleep disturbances due to breathing. Hematologic/Lymphatic: Negative for bleeding problem. Neurological: Positive for light-headedness and loss of balance. Vital Signs: BP 165/72 (BP Location: Left arm, Patient Position: Sitting) Pulse (!) 43 Ht 162.6 cm (5' 4 ) Wt 79.4 kg (175 lb) BMI 30.04 kg/m?? Physical Exam The patient sounded in [...] nightly, Disp: 30 tablet, Rfl: 11 ??? DOXYCYCLINE 100 mg tablet, Take 100 [...] for pain, Disp: , Rfl: 0 ??? metFORMIN (GLUCOPHAGE) 1,000 mg tablet, take 1 tablet (1000MG) by oral route 2 times every day with morning and evening meals, Disp: , Rfl: 0 ??? omeprazole (PriLOSEC) 20 mg capsule, Take 20 mg by mouth daily., Disp: , Rfl: ??? PROAIR HFA 90 mcg/actuation inhaler, , Disp: , Rfl: 11 ??? traZODone (DESYREL) 50 mg tablet, 50 [...] Dr Maxwell manages, Disp: , Rfl: 0 ??? cholecalciferol (VITAMIN D-3) 1,000 unit, Take 1,000 Units by mouth daily., Disp: , Rfl: ??? cyanocobalamin (Vitamin B-12) 1,000 mcg tablet, Take 1,000 mcg by mouth daily, Disp: , Rfl: ??? lisinopril (PRINIVIL,ZESTRIL) 2.5 mg tablet, Take 2.5 mg by mouth daily, Disp: , Rfl: 3 ??? metoprolol tartrate (LOPRESSOR) 25 mg immediate release tablet, Take 0.5 tablets (12.5 mg total) by mouth 2 (two) times a day, Disp: 90 tablet, Rfl: 3 Assessment: Diagnoses and all orders for this visit: Paroxysmal atrial flutter (CMS/HCC) (Primary) - metoprolol tartrate (LOPRESSOR) 25 mg immediate release tablet; Take 0.5 tablets (12.5 mg total) by mouth 2 (two) times a day Bradycardia Chronic anticoagulation H/O mechanical aortic valve replacement Plan/Recommendations: She is feeling better with the reduction in her metoprolol and furosemide last month. However, her heart rate remains low so I instructed her to further reduce the metoprolol to 12.5 mg b.i.d.. Continue amiodarone 200 mg daily. Follow-up again on heart rate in 1 week. If her heart rate remains below 50, I will stop her metoprolol altogether. She remains on anticoagulation with warfarin, both for her mechanical valve and for her atrial arrhythmias. She is not having any bleeding problems. Return to the office to see Dr. Paredes for routine follow-up in about 3 months. MAI Guzman- Nurse Practitioner with [facility] This note is dictated and transcribed using [employer] Software. Route Agent variancesmay occur. Despite proofreading, typographical errors may occur. documented in this encounter Plan of Treatment Not on file documented as of this encounter Visit Diagnoses Diagnosis Paroxysmal atrial flutter (CMS/HCC) (HCC)- Primary Bradycardia Other specified cardiac dysrhythmias Chronic anticoagulation Encounter for long-term (current) use of anticoagulants H/O mechanical aortic valve replacement documented in this encounter Discontinued Medications Medication Sig Discontinue Reason Start Date End Da te metoprolol (LOPRESSOR) 50 mg tablet Take 50 mg by mouth every 12 (twelve) hours Dose adjustment 12/19/2018 06/07/2019 documented as of this encounter Care Teams It Applications Developer Relationship Specialty Start Date End Date Hong Holder MD [address] [place] [address] PCP - General 06/06/16 01/11/20 documented as of this encounter
--- OUTSIDE RECORDS SUMMARY | 2024-03-15 01:57 | XMS_ITS | Encounter Summary ---
Author Organization [facility] Address [address] [place] [address] Care Team Providers Care Automotive Technology Instructor Name Role Phone Juan Pablo Dominguez MD Primary Care Provider Reason for Visit * Reason Comments Follow-up CAD * Consultation (Routine) - Canceled Specialty Diagnoses / Procedures Referred By Contac t Referred To Contact Cardiology Diagnoses Coronary atherosclerosis of naknek coronary artery Christiane Carrera MD Phone: tel: fax: [facility] [address] [address] Phone: tel: fax: Referral ID Status Reason Start Date Expiration Date Visits Requested Visits Authorized [id number] Canceled Specialty Services Required 03/08/2020 03/08/2021 6 6 Encounter Details Date Type Department Care Team (Late st Contact Info) Description 07/31/2020 10:00 AM CDT Office Visit [facility] Cardiology [address] [phone] Ana Maria Hess NP [address] [facility] [address] [place] [id number] H/O mechanical aortic valve replacement (Primary Dx); Chronic anticoagulation; Paroxysmal atrial flutter (CMS/HCC); On amiodarone therapy; Coronary artery disease involving naknek coronary artery of naknek heart without angina pectoris; Hypertensive heart disease with congestive heart failure, unspecified heart failure type (CMS/HCC) Social History Tobacco Use Types Packs/Day Years Used Date Smoking Tobacco: Never Smokeless Tobacco: Never Alcohol Use Standard Drinks/Week Comments No 0 (1 standard drink = 0.6 oz pur e alcohol) Comments Unknown Sex and Gender Information Value Date Recorded Sex Assigned at Not on file 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 Gender Identity Not on file Sexual Orientation Not on file documented as of this encounter Last Filed Vital Signs Vital Sign Reading Time Taken Comments Blood Pressure 150/76 07/31/2020 9:57 AM CDT Pulse 66 07/31/2020 9:57 AM CDT Temperature - - Respiratory Rate - - Oxygen Saturation 97% 07/31/2020 9:57 AM CDT Inhaled Oxygen Concentration - - Weight 91.6 kg (202 lb) 07/31/2020 9:57 AM CDT Height 162.6 cm (5' 4 ) 07/31/2020 9:57 AM CDT Body Mass Index 34.67 07/31/2020 9:57 AM CDT documented in this encounter Patient Instructions * Patient Instructions* Ana Maria Hess NP - 07/31/2020 10:00 AM CDT Please schedule a routine eye exam at your earliest convenience. Because you are taking amiodarone,you should have your eyes checked every year to make sure the amiodarone is not affecting your eyes. Please schedule appointment at [facility] for blood test at your convenience, preferably within the next4-6 weeks. The blood test I ordered is a liver function panel to make sure the amiodarone is not affecting your liver. documented in this encounter Progress Notes * Ana Maria Hess NP - 07/31/2020 10:00 AM CDT Images from the original note were not included. [facility] [address] [place] [address] Date of Visit: 07/31/2020 Patient ID: Radha Huynh [id number] Chief Complaint: [...] Going to see PCP. 08/12/17 Admitted to [facility] in June due to SOB found to be in A.Fib and started on Diltiazem and Metoprolol. Was discharged still with TORRES then sxs continued to worsen and readmitted to [facility] in July. She was started on Sotalol [...] little. She still has not seen a Servicenow Administrator Developer. Not using CPAP for a year. She later admits she is only taking maybe 4 of her medicines but she is not sure if she is taking Sotalol. 02/08/19 CAT visit: Patient presented to [facility] on 12/17/18 complaint of shortness of [...] time for her to take her medicine. Records that I personally reviewed on the day of this visit include: (the interpretation is outlined in the HPI above) 01/12/[address] Paredes, 04/02/2020 telemedicine note from myself, 07/25/2020 labs in [facility] that were ordered by PCP I have also reviewed: allergies, current medications, [...] nocturnal dyspnea and syncope. Respiratory: Positive for snoring. Negative for cough, hemoptysis, shortness of breath and wheezing. Hematologic/Lymphatic: Bruises/bleeds easily. Skin: Negative for poor wound healing and rash. Musculoskeletal: Positive for joint pain and myalgias. Gastrointestinal: Negative for heartburn, nausea and vomiting. Genitourinary: Negative for hematuria. Neurological: Negative for dizziness, headaches and light-headedness. Psychiatric/Behavioral: Positive for depression. The patient is not nervous/anxious. Vital Signs: BP 150/76 (BP Location: Left arm, Patient Position: Sitting) Pulse 66 Ht 162.6 cm (5' 4 ) Wt 91.6 kg (202 lb) SpO2 97% BMI 34.67 kg/m?? Physical Exam Constitutional: General: She is [...] sounds. No murmur heard. Comments: Mechanical click. Multiple small varicosities left lower leg. Pulmonary: Effort: Pulmonary effort is normal. No [...] Polymyxin B ??? Skin Cleanser ??? Neosporin (Boo-Kpm-Ittth) [Iqdaynut-Pkubbzifdm-Sgnhmjuju] Other (See comments) It makes things worse instead of healing. Current Outpatient Medications: ??? amiodarone (PACERONE) 200 mg tablet, Take 0.5 tablets (100 mg total) by mouth daily, Disp: 45 tablet, Rfl: 3 ??? atorvastatin (LIPITOR) 10 mg tablet, TAKE 1 TABLET BY MOUTH ONCE DAILY AT BEDTIME, Disp: 90 tablet, Rfl: 2 ??? azelastine (ASTELIN) 137 mcg (0.1 %) nasal spray, USE 1 SPRAY(S) IN EACH NOSTRIL TWICE DAILY ASDIRECTED, Disp: , Rfl: ??? cholecalciferol, vitamin D3, 1,000 unit tablet,chewable, Take by mouth daily, Disp: , Rfl: ??? cyanocobalamin (Vitamin B-12) 1,000 mcg tablet, Take 1,000 mcg by mouth daily, Disp: , Rfl: ??? diclofenac sodium (VOLTAREN) 1 % gel, 2 g 4 (four) times a day , Disp: , Rfl: ??? docusate sodium (DOK) 100 mg tablet, Take 100 mg by mouth 2 (two) times a day as needed for constipation, Disp: , Rfl: ??? ferrous sulfate 325 mg (65 mg of elemental iron) tablet, Take 325 mg of elemental iron by mouthdaily , Disp: , Rfl: ??? fluticasone (FLONASE) 50 mcg/actuation nasal spray, Administer 1 spray into each nostril daily., Disp: , Rfl: ??? furosemide (LASIX) 40 mg tablet, take 1 tablet (40MG) by oral route every day, Disp: , Rfl: 0 ??? gabapentin (NEURONTIN) 300 mg capsule, take 1 capsule by oral route 2 times every day, Disp: 0,Rfl: 0 ??? HYDROcodone-acetaminophen (NORCO) 10-325 mg per tablet, Take 1 tablet by mouth daily, Disp: , Rfl: ??? lactulose solution 10 gram/15mL, 2 (two) times a day, Disp: , Rfl: ??? lisinopril (PRINIVIL,ZESTRIL) 2.5 mg tablet, Take 2.5 mg by mouth daily, Disp: , Rfl: 3 ??? omeprazole (PriLOSEC) 20 mg capsule, Take 20 mg by mouth daily., Disp: , Rfl: ??? oxymetazoline (oxymetazoline) 0.05 % nasal spray, , Disp: , Rfl: ??? PROAIR HFA 90 mcg/actuation inhaler, as needed , Disp: , Rfl: 11 ??? venlafaxine 150 mg tablet extended release 24hr 24 hr tablet, take 1 tablet by oral route everyday in the morning at the same time each day with food, Disp: , Rfl: 0 ??? warfarin (COUMADIN) 6 mg tablet, TAKE 1 TABLET (6 MG) ON Thursday AND THURSDAY. THEN TAKE 7 MG ON Thursday AND THURSDAY., Disp: , Rfl: ??? warfarin (COUMADIN) 10 mg tablet, take 1 tablet (10MG) by oral route every evening (Patient taking differently: 6 mg ), Disp: , Rfl: 0 ??? warfarin (COUMADIN) 2 mg tablet, take 1 tablet (2MG) by oral route every evening Dr Maxwell manages (Patient not taking: Reported on 04/02/2020), Disp: , Rfl: 0 Lab Results Component Value Date POTASSIUM 4.5 07/02/2017 BUNSER 24 05/23/2015 CREATININE 1.0 07/02/2017 CHOL 173 06/29/2017 TRIG 116 06/29/2017 LDL 75 05/23/2015 LDLCALC 84 06/29/2017 HDL 66 06/29/2017 Assessment: Diagnoses and all orders for this visit: H/O mechanical aortic valve replacement (Primary) - Transthoracic Echo Complete W Doppler/CF; Future Chronic anticoagulation Paroxysmal atrial flutter (CMS/HCC) On amiodarone therapy - Hepatic function panel; Future Coronary artery disease involving n[place] coronary artery of nak[place] heart without angina pectoris Hypertensive heart disease with congestive heart failure, unspecified heart failure type (CMS/HCC) Plan/Recommendations: She has a history of mechanical aortic valve replacement. As noted on Dr. Paredes last office visitnote, there has been a mild increase in velocities on previous echoes, so a repeat echo was recommended this year. I asked the patient to return for an echo in a month. She is on warfarin for anticoagulation and her INR is followed by her PCP. INR from last week was subtherapeutic and the patient states her granddaughter makes the medication changes to her pill dispenser. She sounds like she is maintaining sinus rhythm on amiodarone. She has had no episodes of palpitations. She is not bradycardic. She is now off metoprolol. I reviewed amiodarone toxicity monitoring with the patient. I reminded her to protect herself from prolonged sun exposure. I reminded her to schedule a routine eye exam. She just had a TSH checked last week, chest x-ray 01/12/2020, PFTs 02/17/2020. She has not had any recent liver function panel done so I will order this in asked her to get it within the next 4-6 weeks. Coronary artery disease appears stable and asymptomatic. She is not on aspirin therapy because of her warfarin. She is on atorvastatin. She is no longer on a beta-lexy because of bradycardia. She remains on low-dose MING-inhibitor. Blood pressure is somewhat high today but she appears frail and is having some problems with balance and I do not want to risk hypotension with her therefore I am going to permit some hypertension. She is on furosemide 40 mg daily. I asked her to please use her cane outside of the home. Return to the office to see Dr. Paredes in 4 months. Call us sooner with questions or concerns. MAI Guzman- Nurse Practitioner with [facility] Level 5 for amiodarone toxicity monitoring This note is dictated and transcribed using [employer] Software. Senior Assistant Manager variancesmay occur. Despite proofreading, typographical errors may occur. documented in this encounter Plan of Treatment Not on file documented as of this encounter Procedures Procedure Name Priority Date/Time Associated Diagnosis Comments HEPATIC FUNCTION PANEL Routine 08/07/2020 10:58 AM CDT On amiodarone therapy documented in this encounter Results * Hepatic function panel (08/07/2020 10:58 AM CDT) Protein, Total 6.8 6.4 - 8.4 g/dL [facility] Albumin 3.9 3.6 - 5.1 g/dL [facility] Globulin 2.9 2.2 - 4.0 g/dL (calc) [facility] Alb/glob ratio 1.3 0.9 - 2.3 (calc) [facility] Bilirubin, total 0.3 0.2 - 1.2 mg/dL [facility] Bilirubin, direct 0.0 < OR = 0.2 mg/dL [facility] Bilirubin, indirect 0.3 0.2 - 1.2 mg/dL (calc) [facility] Alk phos 72 37 - 153 U/L [facility] AST 19 10 - 35 U/L [facility] ALT (SGPT) 15 6 - 29 U/L [facility] Blood specimen (specimen) 08/07/2020 10:58 AM CDT 08/07/2020 11:01 AM CDT Narrative [facility] - 08/09/2020 2:14 AM CDT FASTING:YES FASTING: YES us Ana Maria Hess NP LAB BLOOD ORDERABLES Christen farooq Result [facility] [address] [place] [address] documented in this encounter Visit Diagnoses Diagnosis H/O mechanical aortic valve replacement- Primary Chronic anticoagulation Encounter for long-term (current) use of anticoagulants Paroxysmal atrial flutter (CMS/HCC) (HCC) On amiodarone therapy Coronary artery disease involving naknek coronary artery of nak[place] heart without angina pectoris Hypertensive heart disease with congestive heart failure, unspecified heart failure type (HCC) documented in this encounter Discontinued Medications Medication Sig Discontinue Reason Start Date End Da te HYDROcodone-acetaminophe n (LORCET 10-514) 10-650 mg per tablet take 1 tablet by oral route every 4 - 6 hours as needed for pain Formulary change 03/19/2011 07/31/2020 DOXYCYCLINE 100 mg tablet Take 100 mg by mouth 2 (two) times a day Therapy completed 01/20/2019 07/31/2020 documented as of this encounter Historical Medications * This list may reflect changes made after this encounter. warfarin (COUMADIN) 6 mg tablet TAKE 1 TABLET (6 MG) ON Thursday AND THURSDAY. THEN TAKE 7 MG ON Thursday AND THURSDAY. 04/27/2020 1 oxymetazoline (oxymetazoline) 0.05 % nasal spray 1 lactulose solution 10 gram/15mL 2 (two) times a day 1 HYDROcodone-acet aminophen (NORCO) 10-325 mg per tabletIndication s:Pain Take 1 tablet by mouth daily 1 docusate sodium (DOK) 100 mg tabletIndication s:constipation Take 100 mg by mouth 2 (two) times a day as needed for constipation 1 diclofenac sodium (VOLTAREN) 1 % gel 2 g 4 (four) times a day 06/11/2020 1 cyanocobalamin (Vitamin B-12) 1,000 mcg tabletIndication s:Prevention of Vitamin B12 Deficiency Take 1,000 mcg by mouth daily 1 cholecalciferol, vitamin D3, 1,000 unit tablet,chewable Take by mouth daily 1 azelastine (ASTELIN) 137 mcg (0.1 %) nasal spray USE 1 SPRAY(S) IN EACH NOSTRIL TWICE DAILY DIRECTED 05/21/2020 1 added in this encounter Care Teams Automotive Technology Instructor Relationship Specialty Start Date End Date Juan Pablo Dominguez MD [address] [address] PCP - General Family Medicine 01/12/20 08/06/20 documented as of this encounter
--- OUTSIDE RECORDS SUMMARY | 2024-03-15 01:57 | XMS_ITS | Encounter Summary ---
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 No NOMNC will be issued. Referral ID Status Reason Start Date Expiration Date Visits Re quested Visits Authorized [id number] 1 1 Encounter Details Date Type Department Care Team (Latest Contact Info) Description 08/11/2020 5:41 PM CDT - 08/17/2020 12:00 PM CDT Hospital Encounter [facility] Resident's Rooms - [address] [place] [address] Amparo Vergara MD [address] [place] [address] [address] Paroxysmal atrial flutter (CMS/HCC) (Primary Dx); Admission for aftercare Discharge Disposition: Discharge to home or self care Social History Tobacco Use Types Packs/Day Years [...] on file Legal Sex Female 6:10 AM [employer] Gender Identity Not on file Sexual Orientation Not on file documented as of this encounter Last Filed Vital Signs Vital Sign Reading Time Taken Comments Blood Pressure 157/72 08/17/2020 12:52 AM CDT Pulse 60 08/17/2020 12:52 AM CDT Temperature 36.6 ??C (97.8 ??F) 08/17/2020 12:52 AM C DT Respiratory Rate 20 08/17/2020 12:52 AM CDT Oxygen Saturation 94% 08/17/2020 12:52 AM CDT Inhaled Oxygen Concentration - - Weight 89 kg (196 lb 3.2 oz) 08/15/2020 5:15 AM CDT Height 165.1 cm (5' 5 ) 08/11/2020 6:04 PM CDT Body Mass Index 32.65 08/11/2020 6:04 PM CDT documented in this encounter Discharge Summaries * Yulia Reynolds PA - 08/17/2020 9:37 AM CDT [facility] Discharge Summary BRIEF OVERVIEW Admitting Provider: Amparo Vergara MD Discharge Provider: Amparo Vergara MD Primary Care Physician at Discharge: Juan Pablo Dominguez Admission Date: 08/11/2020 Discharge Date: 08/17/20 Admission Location: [facility] Problems/Diagnoses: Principal Problem: Cerebral aneurysm Active Problems: Diabetes mellitus (CMS/HCC) VAZQUEZ on CPAP History of mechanical aortic valve replacement Paroxysmal atrial flutter (CMS/HCC) HLD (hyperlipidemia) Anemia Peripheral neuropathy Depression HTN (hypertension), benign Resolved Problems: Admission for aftercare Elevated troponin DETAILS OF HOSPITAL STAY Hospital Course: This is a [age]-year-old female with past medical history significant for hyperlipidemia, GERD, depression, status post aortic valve replacement presented initially to [facility] for headaches. 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 Visited ED, CT scan done showed 5 mm saccular aneurysm of the right MCA. Transferred to [facility]. Initial troponin 0.038 but initial EKG was unremarkable.. Developed some shortness of breath on ambulation, repeat EKG with flipped T-waves in the precordial leads, biphasic T-wave in 3 and 4, repeat troponin 0.086 after 6 hour. History of mechanical aortic valve placement in 2003, on Coumadin since, INR 1.2. Neurosurgery consulted recommended brain MRI, cerebral angiogram, echo. MRI brain unremarkable for acute ischemic stroke.Cardiology consulted for subtherapeutic INR. EKG sinus rhythm of 66, 1st degree AV block nonspecific IVCD, QRS 144. On telemetry sinus rhythm appeared bundle-branch block with artifact. Echo EF 50-55% LVH septal dyssynergy most likely due to bundle-branch block mechanical aortic valve with mild stenosis and regurgitation. 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 No intervention indicated, continue observation. Patient hemodynamically and clinically stabilized transferred to [facility] for further rehab. ?? Has completed COVID-19 vaccine series. ?? Patient lives in a mobile home alone. Independent in ADLs, IADLs, still drives. Occasionally uses walker. The patient has been participating in therapy, improved quickly with her strength and endurance. ?? VAZQUEZ on CPAP History of VAZQUEZ, on CPAP. ?? History of mechanical aortic valve replacement History of [facility] mechanical aortic valve, placed into a 2003. On Coumadin 6 mg. Repeat PT/INR pending at the time of the note. Last PT/INR 08/15/20 1.5. Recommend f/u PT/INR 08/20 with results to Cardiology ?? Paroxysmal atrial flutter (CMS/HCC) Continue amiodarone. 100 mg daily. Follows up with cardiology Dr. Paredes ?? HLD (hyperlipidemia) Continue Lipitor 10 mg ?? Anemia H/H stable. Continue ferrous sulfate 325 mg daily ?? Peripheral neuropathy Gabapentin continued ?? Depression Continue venlafaxine 150 mg daily ?? HTN (hypertension), benign Blood pressure stable. Continue lisinopril 2.5 mg daily. Monitor blood pressure, adjust meds accordingly ?? Diabetes mellitus (CMS/HCC) A1c 6.0. Stable off medications Active Issues Requiring Follow-up: INR Pertinent Test Results: Recent Results (from the past 72 hour(s)) Protime-INR Collection Time: 08/15/20 5:02 AM Result Value Ref Range PT 17.8 (H) 12.0 - 16.1 sec INR 1.5 Discharge Details Physical Exam at Discharge: Discharge Condition: stable Pulse: 60 Resp: 20 BP: 157/72 Temp: 36.6 ??C (97.8 ??F) Weight: 89 kg (196 lb 3.2 oz) Physical Exam Constitutional: General: She is not in acute distress. HENT: Head: Normocephalic and atraumatic. Eyes: Extraocular Movements: Extraocular movements intact. Cardiovascular: Rate and Rhythm: Normal rate and regular rhythm. Pulmonary: Effort: Pulmonary effort is normal. Breath sounds: Normal breath sounds. No wheezing or rhonchi. Abdominal: General: Bowel sounds are normal. There is no distension. Palpations: Abdomen is soft. Tenderness: There is no abdominal tenderness. Musculoskeletal: General: Normal range of motion. Cervical back: Normal range of motion and neck supple. Comments: Independent with transfers and ambulation Skin: General: Skin is warm and dry. Neurological: Mental Status: She is alert and oriented to person, place, and time. Psychiatric: Mood and Affect: Mood normal. Behavior: Behavior normal. Discharge Disposition:Home Code Status at Discharge: Full Discharge Instructions: Activity Instructions Discharge activity: Resume normal activity Diet Instructions Adult Discharge Diet Diet Type: Return to previous diet Other Instructions Call provider for: Temperature -Temperature greater than 101 degrees F Call provider for: difficulty breathing or chest pain Call provider for: persistent nausea or vomiting Call provider for: severe uncontrolled pain Call provider for: headache, visual disturbances, weakness and speech changes Discharge Medications: Current Medications TAKE these medications acetaminophen 325 mg tablet Take 2 tablets (650 mg total) by mouth every 6 (six) hours as needed (pain) Commonly known as: TYLENOL albuterol HFA 90 mcg/actuation inhaler Inhale 1 puff every 4 (four) hours as needed for wheezing Commonly known as: PROVENTIL HFA,VENTOLIN HFA,PROAIR HFA amiodarone 200 mg tablet Take 0.5 tablets (100 mg total) by mouth daily Commonly known as: PACERONE atorvastatin 10 mg tablet TAKE 1 TABLET BY MOUTH ONCE DAILY AT BEDTIME Commonly known as: LIPITOR azelastine 137 mcg (0.1 %) nasal spray Use in each nostril daily Commonly known as: ASTELIN cholecalciferol (vitamin D3) 1,000 unit tablet,chewable Take 1 tablet/chew tab by mouth daily ferrous sulfate 325 mg (65 mg of elemental iron) tablet Take 1 tablet (325 mg total) by mouth daily with breakfast For: anemia from inadequate iron Start taking on: August 18, 2020 gabapentin 300 mg capsule Take 1 capsule (300 mg total) by mouth 2 (two) times a day Commonly known as: NEURONTIN HYDROcodone-acetaminophen 10-325 mg per tablet Take 2 tablets by mouth every 8 (eight) hours as needed (pain) For: pain Commonly known as: NORCO lisinopriL 2.5 mg tablet Take 2.5 mg by mouth daily Commonly known as: PRINIVIL,ZESTRIL omeprazole 20 mg capsule Take 20 mg by mouth daily. Commonly known as: PriLOSEC polyethylene glycol 17 gram packet Take 1 packet (17 g total) by mouth 2 (two) times a day as needed for constipation For: constipation Commonly known as: MIRALAX senna 8.6 mg tablet Take 1 tablet by mouth 2 (two) times a day as needed for constipation Commonly known as: SENOKOT venlafaxine XR 150 mg 24 hr capsule Take 1 capsule (150 mg total) by mouth daily with breakfast For: major depressive disorder Commonly known as: EFFEXOR-XR Start taking on: August 18, 2020 warfarin 6 mg tablet Take 1 tablet (6 mg total) by mouth daily For: Mechanical Circulatory Support Commonly known as: COUMADIN Outpatient Follow-Up: Future Appointments Date Time Provider Department Center 10/01/2020 11:15 AM [facility] [place] [facility] 1 [facility] 11/22/2020 11:15 AM Maurice Paredes MD [facility] Contact Information for Follow-ups Juan Pablo Dominguez MD Specialty: Family Medicine [id number] [address] Next Steps: Follow up in 1 week(s) Odette Rowland Swetha, MD?? [address]?? [place] [address]?? [phone]? Next Steps: Schedule an appointment as soon as possible for a visit in 1 week(s) Maurice Paredes MD Specialty: Cardiology, Cardiovascular Disease, Internal Medicine [address] [place] [address] [place] [address] Next Steps: Schedule an appointment as soon as possible for a visit in 1 week(s) Greater than 30 min was spent on DC Cosigned by Amparo Vergara MD at 08/17/2020 10:38 AM CDT documented in this encounter Discharge Instructions * Discharge Instructions* Khadra Mendenhall RN - 08/17/2020 10:34 AM CDT Discharge Disposition:Home ? Code Status at Discharge: Full ?? Discharge Instructions: ?? Activity Instructions ?? Discharge activity: Resume normal activity ? Diet Instructions ?? Adult Discharge Diet ?? Diet Type: Return to previous diet ?? documented in this encounter Medications at Time of Discharge acetaminophen (TYLENOL) 325 mg tablet Take 2 tablets (650 mg total) by mouth every 6 (six) hours as needed (pain) 30 tablet 08/17/2020 albuterol HFA (PROVENTIL HFA,VENTOLIN HFA,PROAIR HFA) 90 mcg/actuation inhaler Inhale 1 puff every 4 (four) hours as needed for wheezing 1 Inhaler 08/17/2020 atorvastatin (LIPITOR) 10 mg tabletIndications :Hyperlipidemia associated with type 2 diabetes mellitus (HCC) TAKE 1 TABLET BY MOUTH ONCE DAILY AT BEDTIME 90 tablet 2 08/05/2019 azelastine (ASTELIN) 137 mcg (0.1 %) nasal spray Use in each nostril daily 30 mL 08/17/2020 cholecalciferol, vitamin D3, 1,000 unit tablet,chewable Take 1 tablet/chew tab by mouth daily 08/17/2020 gabapentin (NEURONTIN) 300 mg capsule Take 1 capsule (300 mg total) by mouth 2 (two) times a day 60 capsule 11 08/17/2020 HYDROcodone-aceta minophen (NORCO) 10-325 mg per tabletIndications :Pain Take 2 tablets by mouth every 8 (eight) hours as needed (pain) 30 tablet 08/17/2020 omeprazole (PriLOSEC) 20 mg capsule Take 1 capsule (20 mg total) by mouth daily polyethylene glycol (MIRALAX) 17 gram packetIndications :constipation Take 1 packet (17 g total) by mouth 2 (two) times a day as needed for constipation 08/17/2020 senna (SENOKOT) 8.6 mg tablet Take 1 tablet by mouth 2 (two) times a day as needed for constipation 08/17/2020 venlafaxine XR (EFFEXOR-XR) 150 mg 24 hr capsuleIndication s:major depressive disorder Take 1 capsule (150 mg total) by mouth daily with breakfast 30 capsule 11 08/18/2020 warfarin (COUMADIN) 6 mg tabletIndications :Mechanical Circulatory Support Take 1 tablet (6 mg total) by mouth daily 60 tablet 08/17/2020 ferrous sulfate 325 mg (65 mg of elemental iron) tabletIndications :Iron Deficiency Anemia Take 1 tablet (325 mg total) by mouth daily with breakfast 30 tablet 11 08/18/2020 2 amiodarone (PACERONE) 200 mg tablet Take 0.5 tablets (100 mg total) by mouth daily 45 tablet 3 01/12/2020 2 lisinopril (PRINIVIL,ZESTRIL ) 2.5 mg tablet Take 1 tablet (2.5 mg total) by mouth daily 3 01/27/2019 3 documented as of this encounter Ordered Prescriptions Prescription Sig Dispense Quantity Refills Last Filled Start Date End Date senna (SENOKOT) 8.6 mg tablet Take 1 tablet by mouth 2 (two) times a day as needed for constipation 08/17/2020 polyethylene glycol (MIRALAX) 17 gram packetIndications :constipation Take 1 packet (17 g total) by mouth 2 (two) times a day as needed for constipation 08/17/2020 acetaminophen (TYLENOL) 325 mg tablet Take 2 tablets (650 mg total) by mouth every 6 (six) hours as needed (pain) 30 tablet 08/17/2020 warfarin (COUMADIN) 6 mg tabletIndications :Mechanical Circulatory Support Take 1 tablet (6 mg total) by mouth daily 60 tablet 08/17/2020 albuterol HFA (PROVENTIL HFA,VENTOLIN HFA,PROAIR HFA) 90 mcg/actuation inhaler Inhale 1 puff every 4 (four) hours as needed for wheezing 1 Inhaler 08/17/2020 HYDROcodone-aceta minophen (NORCO) 10-325 mg per tabletIndications :Pain Take 2 tablets by mouth every 8 (eight) hours as needed (pain) 30 tablet 08/17/2020 gabapentin (NEURONTIN) 300 mg capsule Take 1 capsule (300 mg total) by mouth 2 (two) times a day 60 capsule 08/17/2020 cholecalciferol, vitamin D3, 1,000 unit tablet,chewable Take 1 tablet/chew tab by mouth daily 08/17/2020 azelastine (ASTELIN) 137 mcg (0.1 %) nasal spray Use in each nostril daily 30 mL 08/17/2020 venlafaxine XR (EFFEXOR-XR) 150 mg 24 hr capsuleIndication s:major depressive disorder Take 1 capsule (150 mg total) by mouth daily with breakfast 30 capsule 08/18/2020 ferrous sulfate 325 mg (65 mg of elemental iron) tabletIndications :Iron Deficiency Anemia Take 1 tablet (325 mg total) by mouth daily with breakfast 30 tablet 08/18/2020 2 documented in this encounter Discharge Disposition Disposition Code Departure Means Destination Comment s Discharge to home or self care patient discharged to home documented in this encounter Progress Notes * Debo Chapman OT - 08/17/2020 1:26 PM CDT Occupational Therapy 08/16/20 1422 General Session Type Discharge Subjective Agreeable to Therapy Pain Assessment Pain Assessment No/denies pain Plan Plan Discharge;If this is the last note, consider this the discharge summary Recommendation/Plan Progress Discontinue OT D/C TO HOME ON 08/17/20 NO FURTHER O.T. INDICATED 08/17/2020 Debo Chapman OT 1:26 PM * Carmella SimentalMSW - 08/15/2020 2:57 PM CDT SW MET WITH PT HER D/C IS 08/17 PER HER REQUEST AND SHE IS INDEPENDENT WITH ADLS AND AMBULATION. PT LIVES ALONE AND WAS INDEPENDENT WITH ADLS INCLUDING DRIVING. SHE WILL RETURN HOME ALONE. SHE HASSISTER LOCALLY AND DTR IN LAW WHO ASSIST IF NEEDED. SHE HAS LIFELINE, SHOWER CHAIR, GRAB BAR; NO AMBULATORY DEVICE. PT ASKED ABOUT APPLYING FOR PUBLIC AID AND WHERE TO PURCHASE AFFORDABLE HEARING AIDS. SW GAVE HER# FOR DEPT ON AGING. NO NEED FOR HHC OR DME. FAMILY WILL TRANSPORT HER HOME AT D/C. NO OTHER SW NEEDS. * Katie Mares PTA - 08/15/2020 10:57 AM CDT Physical Therapy 08/15/20 1057 PT Last Visit Session Type Treatment Subjective Agreeable to Therapy Pain Assessment Pain Assessment 0-10 Pain Score 8 Pain Location Back (Lumbar) Equipment Use Nu Step Comments level 2 15 minutes Transfer 1 Transfer From 1 Sit Transfer Type 1 To and from Transfer to 1 Stand Technique 1 Sit to stand;Stand to sit Transfer Device 1 No device Transfer Level of Assistance 1 Independent Ambulation Ambulation Yes Ambulation 1 Distance (ft) 1 150' x 1. 250' x 1 Surface 1 Level tile Device 1 No device Assistance 1 Standby Assist Gait: Requires verbal cues to 1 Improve upright posture Ambulation Comments 1 no LOB noted * Faby Vigil COTA - 08/15/2020 9:20 AM CDT Occupational Therapy 08/15/20 0920 General Session Type Treatment Subjective Agreeable to Therapy Pain Assessment Pain Assessment No/denies pain Grooming Grooming: Where assessed Standing at sink Grooming: Level of assistance Modified independent Grooming: Assistance with Brushing hair;Teeth care Bathing Bathing: Where assessed Standing Bathing: Level of assistance Modified Independent UE Dressing UE Dressing: Where assessed Standing UE Dressing: Level of assistance Modified independent LE Dressing LE Dressing: Where assessed Standing LE Dressing: Level of assistance Modified independent Transfer 1 Transfer From 1 (Patient's room) Transfer Type 1 To and from Transfer to 1 (Shower room) Technique 1 (functional mobility) Transfer Device 1 Wheeled walker Transfer Level of Assistance 1 Modified Independent Plan Plan Continue with current plan Recommendation/Plan Progress Progressing toward goals Pt. Performed STS during ADL task Mod I. Pt. Demonstrated good balance during ADL task. Pt. Performed UB/LB bathing and dressing standing in shower Mod I. Pt. Performed LB dressing Mod I on this date. Pt. Performed bathing and dressing to increase I with ADLs. * Faby Vigil COTA - 08/14/2020 2:24 PM CDT Occupational Therapy 08/14/20 1424 General Session Type Treatment Subjective Agreeable to Therapy Pain Assessment Pain Assessment No/denies pain Pain Score 0 - No pain Toileting Toileting: Where assessed Toilet Toileting: Level of assistance Standby Assist Toileting: Assistance with (Pt. performed perineal care after bowel movement SBA) Toilet Transfers Toilet Transfer From (Bathroom) Toilet Transfer Type To Toilet Transfer to (patient's room) Toilet Transfer Technique (functional mobility) Toilet Transfer: Equipment Wheeled walker Toilet Transfers Supervision Toilet Transfers Comments Pt. was sitting on toilet when CHAMORRO entered room All Joints - ROM/Strength - Right R Motion All Joints AROM R Position All Joints Seated Equipment Dumbbell Muscle Tone-All Joints-Right WNL R Weight/Reps/Sets All Joints x20 reps with 1# weight All Joints - ROM/STRENGTH - Left L Motion All Joints AROM L Position All Joints Seated Equipment Dumbbell Muscle Tone-All Joints-Left WNL L Weight/Reps/Sets All Joints x20 reps with 1# weight Plan Plan Continue with current plan Recommendation/Plan Progress Progressing toward goals Pt. Performed UE arm exercises to increase UE strength and ROM for I ADLs. Pt. Performed standing balance activity ball toss standing with wheeled walker SBA for balance, standing approx. 2 minutes to increase standing balance and activity tolerance for I ADLs. Pt. Performed standing balance activity sylvester bag toss standing with wheeled walker SBA for balance,standing approx. 2.5 minutes to increase standing balance and activity tolerance for I ADLs. Pt. Performed functional mobility room <-> therapy gym with wheeled walker SBA for balance. Pt. Performed activity tolerance activity performing functional mobility around 4 cones x6 reps SBAfor balance with no assistive device to increase activity tolerance for I ADLs. * Betty Sim PTA - 08/14/2020 10:18 AM CDT Physical Therapy 08/14/20 1018 PT Last Visit Session Type Treatment PT Received On 08/14/20 Safe Environment Arm Band Checked;Patient found sitting in Chair;Session Completed in Gym Subjective Agreeable to Therapy Activity Tolerance Endurance Tolerates 30 min activity with multiple rests Pain Assessment Pain Assessment 0-10 Pain Score 4 Pain Type Surgical pain Pain Location Groin Pain Orientation Right Cognition Arousal/Alertness Alert Orientation Oriented X4 (person, place, time, situation) Seated Seated-Exercises Lower extremity Reps/Sets 10 Seated-Motion AROM Seated-Exercise Comments SAQ, ankle ROM, windshield wipers, marching, glut set; pain limits repetitions tolerated this date. Equipment Use Nu Step Comments Level 1 [id number] for improved BLE strengthening and to improve overall enduranceto activity Transfer 1 Transfer From 1 Sit Transfer Type 1 To and from Transfer to 1 Stand Technique 1 Sit to stand Transfer Device 1 Wheeled walker;No device Transfer Level of Assistance 1 Standby Assist Trials/Comments 1 Provided occasional skilled verbal instructions for hand placement to reach back for seated surface for increased safety awareness. Pt reports utilized SC for transfers and balance prior to admission to hospital; admits to not having used AD often. Ambulation 1 Distance (ft) 1 250' x2 Surface 1 Level tile Device 1 Wheeled walker Assistance 1 Contact Guard Assist Ambulation Comments 1 Improved safety with w/w this date; pt did well to navigate around obstacles in hallway with only minimal assistance to required. Pt navigated around obstacles, around 90degree turns, and through narrow spaced without significant LOB noted. * Minna Christine RN - 08/14/2020 8:08 AM CDT INSURANCE UPDATE: Initial evaluations and clinicals faxed to [facility] case repairer. 08/14/20, 1354: Fax from insurance with [employer] 08/21/20. * Hannah Frias, PT - 08/13/2020 3:35 PM CDT Physical Therapy 08/13/20 1419 General Chart Reviewed Yes Session Type Evaluation Session Type: Specialty Group Other (Comment) Safe Environment Arm Band Checked;Call Light within Reach;Session Completed Bedside;Session Completed in Gym;Patient found sitting in Chair;Overbed Table within Reach;Bed rails up per protocol;Bed inLowest Position with Wheels locked (Session ended with patient supine in bed) Subjective Agreeable to Therapy ( I am leaving here by Thursday. ) Subjective Comment I said I would give you guys a week. That's Thursday. I'm leaving then. Additional Pertinent History Diagnosis: Saccular aneurysm of R MCA; PMH: aortic valve replacement, GERD, depression Family/Caregiver Present No Physical Therapy-Patient Goal Patient requests discharge by Thursday: 08/17/2020 Precautions Precautions Fall risk Weight Bearing Restrictions Yes RUE Weight Bearing FWB LUE Weight Bearing FWB RLE Weight Bearing FWB LLE Weight Bearing FWB Home Living Type of Home House Home Layout One level;Ramps Home Access Ramped entrance Bathroom Shower/Tub Tub/shower unit Bathroom Toilet Standard Bathroom Equipment Grab bars in shower/tub;Shower chair;Grab bars around toilet Bathroom Accessibility Accessible via walker Home Mobility Equipment Wheeled walker;None Prior Function Level of [place] Independent with ADLs;Independent functional transfers;Independent with ambulation;Independent with homemaking with ambulation Lives With Alone (with dog) Driving Yes Mode of Transportation Car;Driven by self ADL Assistance Independent Instrumental ADL (IADL) Assistance Independent Vocational/Occupation Retired Fall within the last 6 months No Fall within the last 6 months comment Patient reports rolling out of bed greater than 6 months ago. Activity Tolerance Endurance Tolerates 30 min activity with multiple rests Pain Assessment Pain Assessment 0-10 Pain Score 9 Patient's Stated Pain Goal No pain Pain Type Acute pain Pain Location Groin Pain Orientation Right (at surgical site) Pain Descriptors Sharp Pain Frequency With movement/cough Pain Onset Other (Comment) Vision-Basic Assessment Current Vision Does not wear glasses Perception Inattention/Neglect Maintains midline in sitting;Maintains midline in standing;Unable to attend to left environment Initiation Appears intact Perseveration Not present Cognition Cognition Comments Patient demos poor attention to L side; frequently runs into wall with walker. Patient demos weakness L side as well. Orientation Oriented X4 (person, place, time, situation) Following Commands Follows all commands and directions without difficulty Safety Judgment Decreased awareness of need for safety Awareness of Errors Decreased awareness of errors Insight Decreased awareness of deficits Problem Solving Assistance required to generate solutions Compliance/Behavior Easy to engage Motor Planning Motor Planning Appears intact Coordination Movements are Fluid and Coordinated 1 Balance Balance Yes Bed Mobility Bed Mobility Yes Bed Mobility 1 Bed Mobility From 1 Rolling right;Rolling left;Scooting Level of Assistance 1 Standby Assist Bed Mobility 2 Bed Mobility From 2 Supine Bed Mobility Type 2 To and from Bed Mobility to 2 Short sit;Edge of Bed Level of Assistance 2 Contact Guard Assist;Moderate verbal cues Bed Mobility Comments 2 Hand placement, sequencing, and safety awareness Transfers Transfer Yes Transfer 1 Transfer From 1 Sit Transfer Type 1 To and from Transfer to 1 Stand Transfer Device 1 Wheeled walker Transfer Level of Assistance 1 Contact Guard Assist;Moderate verbal cues Trials/Comments 1 Hand placement, sequencing, and safety awareness with use of FWW Transfers 2 Transfer From 2 Bed Transfer Type 2 To and from Transfer to 2 Chair with arms Technique 2 Stand pivot Transfer Device 2 Wheeled walker Transfer Level of Assistance 2 Contact Guard Assist;Maximal verbal cues Trials/Comments 2 hand placement, sequencing, and safety awareness with use of FWW with poor returndemo. Ambulation Ambulation Yes Ambulation 1 Distance (ft) 1 250 Surface 1 Level tile Device 1 Wheeled walker Assistance 1 Contact Guard Assist Gait: Requires assist with 1 Maintaining balance Gait: Requires verbal cues to 1 Use assistive device safely;Prevent bumping into environmental barriers (aldridge/furniture);Improve upright posture Quality of Gait 1 Poor balance and attention to L side Stairs Stairs No Stair Comments Not applicable AROM RLE (degrees) RLE Overall AROM Within Functional Limits R Hip AROM Internal Rotation (Moderate limitations noted) R Hip AROM External Rotation (increased ROM beyond normal limits noted) Strength RLE RLE Overall Strength Due to pain R Hip Flexion 3-/5 R Hip Extension 3-/5 R Hip ABduction 3-/5 R Hip ADduction 3-/5 R Knee Flexion 4/5 R Knee Extension 4/5 R Ankle Dorsiflexion 5/5 R Ankle Plantar Flexion 5/5 R Great Toe Extension 5/5 AROM LLE (degrees) LLE Overall AROM Within Functional Limits L Hip AROM Internal Rotation (Moderate limitations noted) L Hip AROM External Rotation (moderate increase greater than typical noted) Strength LLE L Hip Flexion 3+/5 L Hip Extension 3+/5 L Hip ABduction 3+/5 L Knee Flexion 4-/5 L Knee Extension 4/5 L Ankle Dorsiflexion 3+/5 L Ankle Plantar Flexion 3+/5 L Great Toe Extension 4-/5 Assessment Prognosis Good Problem List Gait deviations;Decreased strength;Decreased endurance;Impaired balance;Decreased mobility;Impaired judgement;Decreased safety awareness;Pain;Decreased ADLs Barriers to Discharge Decreased safety awareness Plan Plan Plan of care initiated Recommendation/Plan PT Recommendation/Plan Home independently;Home Health PT PT Frequency 5-7x/wk Treatment/Interventions Balance Training;Bed mobility;Endurance training;Functional activity;Functional transfer training;Gait training;Neuromuscular re-education;Parent/caregiver training and educati on;Therapeutic activity;Therapeutic exercise;Transfer training PT Equipment Recommended Wheeled walker PT Evaluation Complete Yes * Hannah Frias PT - 08/13/2020 3:07 PM CDT Physical Therapy 08/13/20 1419 Dynamic Gait Index Gait Level Surface 0 Change in Gait Speed 0 Gait with Horizontal Head Turns 0 Gait with Vertical Head Turns 0 Gait and Pivot Turn 1 Step Over Obstacle 0 Step Around Obstacles 0 Steps 0 DGI Total Score 1 General Balance Assessments Sitting - Static Normal Sitting - Dynamic Normal Standing - Static Fair+ Standing - Dynamic Good- * Minna Christine RN - 08/13/2020 10:30 AM CDT INSURANCE UPDATE: Initial evaluations faxed to [facility] case repairer. * Debo Chapman, OT - 08/13/2020 7:17 AM CDT Occupational Therapy 08/13/20 0717 General Session Type Treatment Safe Environment Arm Band Checked;Call Light within Reach;Overbed Table within Reach Subjective (I WANT TO WEAR MY SHOES AND SOCKS) Precautions Precautions Fall risk Pain Assessment Pain Score 3 Patient's Stated Pain Goal 2 Pain Type Acute pain Pain Location Head Physical Functioning & Structural Problems Transfer - Self Performance (G1-A) 2 Transfer - Support (G1-B) 1 Walk in Room - Self Performance (G1-A) 1 Walk in Room - Support (G1-B) 1 Dressing - Self Performance (G1-A) 1 Dressing - Support (G1-B) 1 Eating - Self Performance (G1-A) 0 Eating - Support (G1-B) 0 Toilet Use - Self Performance (G1-A) 1 Toilet Use - Support (G1-B) 1 Personal Hygiene - Self Performance (G1-A) 1 Personal Hygiene - Support (G1-B) 1 Bathing - Self Performance (G2-A) 1 Bathing - Support (G2-B) 1 Equipment (G5) Cane/Walker/Crutch (W/W) Toilet Transfers Toilet Transfer From Rolling walker Toilet Transfer Type To and from Toilet Transfer to Standard bedside commode Toilet Transfer Technique Ambulating Toilet Transfer: Equipment Wheeled walker Toilet Transfers Supervision Activity Tolerance Activity Tolerance Patient tolerated treatment well Plan Plan Continue with current plan Recommendation/Plan OT Recommendation Home independently 08/13/2020 Debo Chapman OT * Debo Chapman, OT - 08/13/2020 6:53 AM CDT Occupational Therapy 08/13/20 0653 General Session Type Evaluation OT Received On 08/13/20 Safe Environment Arm Band Checked;Call Light within Reach;Overbed Table within Reach Subjective (I WANT TO LEAVE THURSDAY) Precautions Precautions Fall risk RUE Weight Bearing FWB LUE Weight Bearing FWB RLE Weight Bearing FWB LLE Weight Bearing FWB Pain Assessment Pain Assessment 0-10 Pain Score 3 Patient's Stated Pain Goal 2 Pain Type Acute pain Physical Functioning & Structural Problems Bed Mobility - Self Performance (G1-A) 1 Bed Mobility - Support (G1-B) 1 Transfer - Self Performance (G1-A) 1 Transfer - Support (G1-B) 1 Walk in Room - Self Performance (G1-A) 1 Walk in Room - Support (G1-B) 1 (W/ W/W) Dressing - Self Performance (G1-A) 1 Dressing - Support (G1-B) 1 Eating - Self Performance (G1-A) 0 Eating - Support (G1-B) 0 Toilet Use - Self Performance (G1-A) 1 Toilet Use - Support (G1-B) 1 Personal Hygiene - Self Performance (G1-A) 1 Personal Hygiene - Support (G1-B) 1 Bathing - Self Performance (G2-A) 1 Bathing - Support (G2-B) 1 Equipment (G5) Cane/Walker/Crutch Coordination Fine Motor WFL;Good Recommendation/Plan OT Recommendation Home independently OT Recommendation/Plan Comments (90 DAYS) OT Frequency 5-7x/wk Treatment/Interventions ADL/IADL retraining;Balance Training;Bed mobility;Endurance training;Functional activity;Functional mobility training;Functional transfer training;Therapeutic activity;Therapeutic exercise;Transfer training OT Evaluation Complete Yes 08/13/2020 Debo Chapman, ION * Lora Guzman, [facility] - 08/11/2020 7:18 PM CDT Warfarin monitoring Warfarin dose today: 9 mg given at OSH. Pt to start on 5 mg daily on 08/12. INR as OSH on 08/11= 1.4 Provider to dose Home dose: 6 mg ///; 7 mg // Indication: mechanical AVR INR goal 2.5-3.5 Provider: Jai Bridge: lovenox weight based (90 mg BID) Lora Guzman RPh documented in this encounter H&P Notes * Amparo Vergara MD - 08/14/2020 8:11 AM CDT [facility] History and Physical Date of service: 08/14/2020 Primary care provider: SUBJECTIVE: headache, unsteady gait HPI: This is a [age]-year-old female with past medical history significant for hyperlipidemia, GERD, depression status post aortic valve replacement, transferred from [facility], where she presented in the ED for headaches. Patient initially presented [facility] for headaches, dizziness. Had stroke-like symptoms about 3 days ago, when she felt near-syncopal, had to sit down but since then had frontal headache, associated with unstable gait. 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 Headache improved somewhat with morphine and Zofran. Transferred to [facility]. Initial troponin 0.038 but initial EKG was unremarkable.. Developed some shortness of breath on ambulation, repeat EKG with flipped T-waves in the precordial leads, biphasic T-wave in 3 and 4, repeat troponin 0.086 after 6 hour. History of mechanical aortic valve placement in 2003, on Coumadin since, INR 1.2. Neurosurgery consulted recommended brain MRI, cerebral angiogram, echo. MRI brain unremarkable for acute ischemic stroke. Cardiology consulted for subtherapeutic INR. EKG sinus rhythm of 66, 1st degree AV block nonspecific IVCD, QRS 144. On telemetry sinus rhythm appeared bundle- branch block with artifact. Echo EF 50-55% LVH septal dyssynergy most likely due to bundle-branch block mechanical aortic valve with mild stenosis and regurgitation. Given Lovenox 1 milligram/kg. 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 No intervention indicated, continue obse rvation. Patient hemodynamically and clinically stabilized transferred to [facility] for further rehab. Has completed COVID-19 vaccine series. Patient lives in a mobile home alone. Independent in ADLs, IADLs, still drives. Occasionally uses walker. She is resting in bed, alert and awake. Patient reports that has mild generalized weakness. Nasal congestion better with Flonase. Denies any headache, dizziness, nausea vomiting, diarrhea, change to smell or taste. Past Medical History: Diagnosis Date ??? Adiposity Obesity ??? Dementia (CMS/HCC) 2020 diagnosed by PCP in 2019 ??? HX OTHER MEDICAL Sleep Apnea, CPAP ??? HX OTHER MEDICAL Diabetes Type II ??? Hypertension Hypertension Past Surgical History: Procedure Laterality Date ??? OTHER SURGICAL HISTORY Valve Replacement [facility] AVR Medications Prior to Admission Medication Sig Dispense Refill Last Dose ??? amiodarone (PACERONE) 200 mg tablet Take 0.5 tablets (100 mg total) by mouth daily 45 tablet 3 ??? atorvastatin (LIPITOR) 10 mg tablet TAKE 1 TABLET BY MOUTH ONCE DAILY AT BEDTIME 90 tablet 2 ??? azelastine (ASTELIN) 137 mcg (0.1 %) nasal spray USE 1 SPRAY(S) IN EACH NOSTRIL TWICE DAILY DIRECTED ??? cholecalciferol, vitamin D3, 1,000 unit tablet,chewable Take by mouth daily ??? cyanocobalamin (Vitamin B-12) 1,000 mcg tablet Take 1,000 mcg by mouth daily ??? diclofenac sodium (VOLTAREN) 1 % gel 2 g 4 (four) times a day ??? docusate sodium (DOK) 100 mg tablet Take 100 mg by mouth 2 (two) times a day as needed for constipation ??? ferrous sulfate 325 mg (65 mg of elemental iron) tablet Take 325 mg of elemental iron by mouth daily ??? fluticasone (FLONASE) 50 mcg/actuation nasal spray Administer 1 spray into each nostril daily. ??? furosemide (LASIX) 40 mg tablet take 1 tablet (40MG) by oral route every day 0 ??? gabapentin (NEURONTIN) 300 mg capsule take 1 capsule by oral route 2 times every day 0 0 ??? HYDROcodone-acetaminophen (NORCO) 10-325 mg per tablet Take 1 tablet by mouth daily ??? lactulose solution 10 gram/15mL 2 (two) times a day ??? lisinopril (PRINIVIL,ZESTRIL) 2.5 mg tablet Take 2.5 mg by mouth daily 3 ??? omeprazole (PriLOSEC) 20 mg capsule Take 20 mg by mouth daily. ??? oxymetazoline (oxymetazoline) 0.05 % nasal spray ??? PROAIR HFA 90 mcg/actuation inhaler as needed 11 ??? venlafaxine 150 mg tablet extended release 24hr 24 hr tablet take 1 tablet by oral route every day in the morning at the same time each day with food 0 ??? warfarin (COUMADIN) 10 mg tablet take 1 tablet (10MG) by oral route every evening (Patient taking differently: 6 mg ) 0 ??? warfarin (COUMADIN) 2 mg tablet take 1 tablet (2MG) by oral route every evening Dr Maxwell manages (Patient not taking: Reported on 04/02/2020) 0 ??? warfarin (COUMADIN) 6 mg tablet TAKE 1 TABLET (6 MG) ON Thursday AND THURSDAY. THEN TAKE 7 MG ON Thursday AND THURSDAY. Allergies Allergen Reactions ??? Bacitracin ??? Benzalkonium ??? Gramicidin D ??? Hydrocortisone ??? Neomycin ??? Polymyxin B ??? Skin Cleanser ??? Neosporin (Jzl-Zwp-Ewtsk) [Htxsprya-Jprawphvab-Sabagsbat] Other (See comments) It makes things worse instead of healing. Social History Socioeconomic History ??? Marital status: Spouse name: Not on file ??? Number of children: Not on file ??? Years of education: Not on file ??? Highest education level: Not on file Occupational History ??? Not on file Tobacco Use ??? Smoking status: Never Smoker ??? Smokeless tobacco: Never Used Substance and Sexual Activity ??? Alcohol use: No ??? Drug use: No ??? Sexual activity: Not on file Other Topics Concern ??? Not on file Social History Narrative ??? Not on file Family History Problem Relation Age of Onset ??? Heart attack Father Myocardial Infarction; Cause of : Myocardial Infarction Review of Systems: Review of Systems Constitutional: Positive for fatigue. HENT: Positive for congestion and postnasal drip. Eyes: Negative. Respiratory: Negative for apnea, cough and wheezing. Cardiovascular: Negative for chest pain and palpitations. Gastrointestinal: Negative for abdominal pain, blood in stool and vomiting. Endocrine: Negative. Genitourinary: Negative for dysuria, flank pain, hematuria and urgency. Musculoskeletal: Negative. Skin: Negative. Allergic/Immunologic: Negative. Neurological: Negative. Hematological: Negative. Psychiatric/Behavioral: Negative. Breast: Negative. OBJECTIVE Vitals: Arrival Vitals Temp 08/11/20 1802 36.8 ??C (98.3 ??F) Pulse 08/11/20 1802 72 Resp 08/11/20 1802 18 BP 08/11/20 1802 142/79 SpO2 08/11/20 1802 97 % Temp src 08/11/20 1802 Oral Heart Rate Source 08/12/20 1540 Monitor Patient Position 08/11/20 1804 Sitting BP Location 08/11/20 1802 Right arm FiO2 (%) -- 24hr Min/Max: Temp Min: 36.9 ??C (98.5 ??F) Max: 37.2 ??C (98.9 ??F) Pulse Min: 64 Max: 70 BP Min: 146/76 Max: 158/82 Resp Min: 16 Max: 20 SpO2 Min: 95 % Max: 98 % Most Recent : Vitals: 08/14/20 0700 BP: 146/76 Pulse: 70 Resp: 20 Temp: 37 ??C (98.6 ??F) SpO2: 95% Intake/Output Summary (Last 24 hours) at 08/14/2020 0811 Last data filed at 08/14/2020 0441 Gross per 24 hour Intake 1320 ml Output 4 ml Net 1316 ml Physical exam: Physical Exam Constitutional: Appearance: Normal appearance. She is obese. HENT: Head: Normocephalic and atraumatic. Nose: Nose normal. Mouth/Throat: Mouth: Mucous membranes are moist. Pharynx: Oropharynx is clear. Eyes: Extraocular Movements: Extraocular movements intact. Conjunctiva/sclera: Conjunctivae normal. Pupils: Pupils are equal, round, and reactive to light. Cardiovascular: Rate and Rhythm: Normal rate and regular rhythm. Pulses: Normal pulses. Heart sounds: Normal heart sounds. Pulmonary: Effort: Pulmonary effort is normal. Breath sounds: Normal breath sounds. No wheezing or rhonchi. Abdominal: General: Abdomen is flat. Bowel sounds are normal. Palpations: There is no mass. Tenderness: There is no abdominal tenderness. Musculoskeletal: General: No tenderness. Normal range of motion. Cervical back: Normal range of motion and neck supple. Skin: General: Skin is warm and dry. Capillary Refill: Capillary refill takes less than 2 seconds. Findings: No erythema. Neurological: General: No focal deficit present. Mental Status: She is alert and oriented to person, place, and time. Mental status is at baseline. Psychiatric: Mood and Affect: Mood normal. Behavior: Behavior normal. Thought Content: Thought content normal. Lab/Radiology/Diagnostic Review: MRI: Moderate chronic stoma vessel white matter change, no acute infarct. 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 Current Facility-Administered Medications Medication Dose Route Frequency Provider Last Rate Last Admin ??? acetaminophen (TYLENOL) tablet 650 mg 650 mg oral Q6H PRN Amparo Vergara MD 650 mg at 08/13/20 1741 ??? albuterol HFA (PROVENTIL HFA,VENTOLIN HFA,PROAIR HFA) 90 mcg/actuation inhaler 1 puff 1 puff inhalation Q4H PRN Amparo Vergara MD ??? amiodarone (PACERONE) tablet 100 mg 100 mg oral Daily Amparo Vergara MD 100 mg at 08/14/20 0743 ??? atorvastatin (LIPITOR) tablet 10 mg 10 mg oral Nightly Amparo Vergara MD 10 mg at 08/13/202101 ??? enoxaparin (LOVENOX) syringe 100 mg 1 mg/kg subcutaneous Q12H IAN Amparo Vergara MD 100 mg at 08/13/202101 ??? ferrous sulfate tablet 325 mg 65 mg of elemental iron oral Daily with breakfast Amparo Vergara MD 325 mg at 08/14/20 0745 ??? fluticasone propionate (FLONASE) 50 mcg/actuation nasal spray 1 spray 1 spray each nostril Daily Amparo Vergara MD 1 spray at 08/14/20 0749 ??? gabapentin (NEURONTIN) capsule 300 mg 300 mg oral BID Amparo Vergara MD 300 mg at 08/14/20 0744 ??? HYDROcodone-acetaminophen (NORCO) 10-325 mg per tablet 2 tablet 2 tablet oral Q8H PRN Amparo Vergara MD 2 tablet at 08/13/20 2101 ??? lisinopriL (PRINIVIL,ZESTRIL) tablet 2.5 mg 2.5 mg oral Daily Amparo Vergara MD 2.5 mg at 08/14/20 0745 ??? pantoprazole DR (PROTONIX) extended release tablet 40 mg 40 mg oral Before breakfast Amparo Vergara MD 40 mg at 08/14/20 0743 ??? polyethylene glycol (MIRALAX) packet 17 g 17 g oral BID PRN Amparo Vergara MD ??? senna (SENOKOT) tablet 1 tablet 1 tablet oral BID Amparo Vergara MD 1 tablet at 08/14/20 0744 ??? venlafaxine XR (EFFEXOR-XR) extended release capsule 150 mg 150 mg oral Daily with breakfast Amparo Vergara MD 150 mg at 08/14/20 0744 ??? warfarin (COUMADIN) tablet 5 mg 5 mg oral Daily-1800 Amparo Vergara MD 5 mg at 08/13/20 1741 A/P VAZQUEZ on CPAP History of VAZQUEZ, on CPAP. History of mechanical aortic valve replacement History of [facility]. Lj mechanical aortic valve, placed into a 2003. On Coumadin 5 mg. Monitor INR. Paroxysmal atrial flutter (CMS/HCC) Continue amiodarone. 100 mg daily. Follows up with cardiology Dr. Lena SONI (hyperlipidemia) Continue Lipitor 10 mg Anemia Continue ferrous sulfate 325 mg daily Peripheral neuropathy Gabapentin trended mg b.i.d. Depression Continue venlafaxine 150 mg daily HTN (hypertension), benign Blood pressure stable. Continue lisinopril 2.5 mg daily. Monitor blood pressure, adjust meds accordingly Diabetes mellitus ([facility]) A1c 7.4 in 2018. recheck level. Not on any med. DVT prophylaxis: Lovenox, warfarin Code status: full code. Amparo Vergara MD Date of Service: 08/14/2020 Voice recognition software [employer] Direct was used dictate and transcribe this document. Hearing Aid Consultant variances may occur. Despite proofreading, typographical errors may occur. documented in this encounter Nursing Notes * Sol Balderarma RN - 08/17/2020 11:11 AM CDT Pt discharged home. Instructions reviewed. Verbalized understanding. Assisted to personal car ambulatory by hospital staff. documented in this encounter Miscellaneous Notes * Incidental Note - Minna Christine RN - 08/15/2020 10:25 AM CDT DISCHARGE PLANNING: Per a communication from ADARSH Ling/Naman, Travel Professional, patient wishes to discharge home on 08/17/20. She is appropriate to move to lower level of care. As patient has driven discharge date, no NOMNC will be issued. LCD will be 08/16/20. * Plan of Care - Silvana Collins RN - 08/14/2020 10:01 AM CDT Goals: Summary:continue to progress with care * Assessment & Plan Note - Amparo Vergara MD - 08/14/2020 8:16 AM CDTAssociated Problem(s): Elevated troponin (Resolved 08/17/2020) Cardiology consulted. Recommended no further cardiac testing. keep the INR 2.5- 3.5 with warfarin * Assessment & Plan Note - Amparo Vergara MD - 08/14/2020 8:12 AM CDTAssociated Problem(s): Cerebral aneurysm Patient had stroke-like symptoms for 3 days, felt near syncopal and frontal headaches associated with un stable gait. MRI done showed no acute infarct. Moderate small vessel white matter chronic changes. Neurosurgery consulted. Recommended no intervention. Will continue to monitor * Assessment & Plan Note - Amparo Vergara MD - 08/14/2020 8:10 AM CDTAssociated Problem(s): Diabetes mellitus (HCC) A1c 7.4 in 2018. recheck level. Not on any med. * Assessment & Plan Note - Amparo Vergara MD - 08/14/2020 8:09 AM CDTAssociated Problem(s): Hypertension associated with diabetes (HCC) Blood pressure stable. Continue lisinopril 2.5 mg daily. Monitor blood pressure, adjust meds accordingly * Assessment & Plan Note - Amparo Vergara MD - 08/14/2020 8:08 AM CDTAssociated Problem(s): Depression Continue venlafaxine 150 mg daily * Assessment & Plan Note - Amparo Vergara MD - 08/14/2020 8:07 AM CDTAssociated Problem(s): Peripheral neuropathy Gabapentin trended mg b.i.d. * Assessment & Plan Note - Amparo Vergara MD - 08/14/2020 8:07 AM CDTAssociated Problem(s): Anemia Continue ferrous sulfate 325 mg daily * Assessment & Plan Note - Amparo Vergara MD - 08/14/2020 8:06 AM CDTAssociated Problem(s): HLD (hyperlipidemia) (Resolved 09/12/2021) Continue Lipitor 10 mg * Assessment & Plan Note - Amparo Vergara MD - 08/14/2020 8:01 AM CDTAssociated Problem(s): Paroxysmal atrial flutter (CMS/HCC) (HCC) Continue amiodarone. 100 mg daily. Follows up with cardiology Dr. Paredes * Assessment & Plan Note - Amparo Vergara MD - 08/14/2020 7:55 AM CDTAssociated Problem(s): History of mechanical aortic valve replacement History of St. Lj mechanical aortic valve, placed into a 2004. On Coumadin 5 mg. Lovenox for bridging. Monitor INR. * Assessment & Plan Note - Amparo Vergara MD - 08/14/2020 7:49 AM CDTAssociated Problem(s): VAZQUEZ on CPAP History of VAZQUEZ, on CPAP. For past few years has not been using CPAP. Denies any dyspnea overnight. * Plan of Care - Michelle Mansfield RN - 08/14/2020 12:02 AM CDT Problem: Facility Isolation Psychosocial Wellbeing Description: Resident at risk for psychosocial wellbeing concern related to medical and visitation restrictions secondary to COVID-19 Goal: Resident will not show a decline in psychosocial wellbeing or experience adverse effects through next review Description: 1. Educate resident, family, resident representatives, staff and visitors of COVID-19 signs and symptoms and precautions 2. Provide emotional support and allow resident to express feelings, fears, and concerns 3. Observe for psychosocial and mental status changes, document and update social worker clinical and MD as needed 4. Provide in room activities of choice if indicated 5. Provide alternative methods of communication with family/visitors 6. Assure resident, family, and resident representatives facility is taking precautions to keep them safe 7. Update resident, family, and resident representatives as needed Outcome: Progressing Goals: Have a positive day in therapy Summary: * Plan of Care - Michelle Mansfield, RN - 08/13/2020 11:58 PM CDT Goals: Have calm night and sleep well through the night Summary: Patient resting well in bed * Plan of Care - Hannah Frias PT - 08/13/2020 3:43 PM CDT Problem: Mobility Goal: LTG - Patient will be able to go up and down a curb/step with the appropriate device Note: Goal: SBA with FWW Problem: Transfers Goal: STG - Patient to transfer to and from sit to supine Note: Goal: with independence Goal: STG - Patient will perform bed mobility Flowsheets (Taken 08/13/2020 1541) Assist Level: SBA Note: Goal: with independence Goal: STG - Patient will transfer sit to and from stand Note: Goal: 2x5 reps without UE support and CGA or less Problem: Mobility Goal: LTG - Patient will ambulate community distance Note: Goal: 350 feet with FWW with independence Problem: PT Misc Goal: PT STG - Misc 1 Note: Goal: Patient will perform standing there ex 1x15 reps with B UE support and SBA or less. documented in this encounter Plan of Treatment Not on file documented as of this encounter Procedures Procedure Name Priority Date/Time Associated Diagnosis Comments PROTIME-INR Routine 08/15/2020 5:02 AM CDT EGFR Routine 08/14/2020 9:38 AM CDT DIFFERENTIAL AUTO Routine 08/14/2020 9:3 8 AM CDT CBC WITH AUTO DIFFERENTIAL Routine 08/14/2020 9:38 AM CDT HEMOGLOBIN A1C Routine 08/14/2020 9:38 AM CDT BASIC METABOLIC PANEL Routine 08/14/2020 9:38 AM CDT POCT GLUCOSE DEVICE Routine 08/14/2020 7 :53 AM CDT PROTIME-INR Routine 08/13/2020 7:42 AM CDT PROTIME-INR Routine 08/12/2020 7:16 AM CDT documented in this encounter Results * (ABNORMAL) Protime-INR (08/15/2020 5:02 AM CDT) PT 17.8(H) 12.0 - 16.1 sec KERRIE LUGO Comment:Ref Range High INR 1.5 KERRIE LUGO Comment: Interpretive data Oral anticoagulant therapeutic ranges: Venous thromboembolism prophylaxis or treatment: 2.0-3.0 CARDIOLOGY Standard range: 2.0-3.0 High-intensity range: 2.5-3.5 Refer to indication-specific guidelines for appropriate target ranges for prosthetic heart valve replacement. Current interpretive data was last revised on 2019. Blood specimen (specimen) 08/15/2020 5:02 AM CDT 08/15/2020 5:52 AM CDT us Yulia ARECHIGA LAB BLOOD ORDERABLES Final Resu lt Performing Organization Address City/State/[facility] Co de Phone Number [facility] [address] [place] [address] * eGFR (08/14/2020 9:38 AM CDT) eGFR 49 mL/min/1.7 3 m2 [facility] Comment: [...] MD LAB BLOOD ORDERABLES Final Resul t [facility] [address] [place] [address] * Differential, auto (08/14/2020 9:38 AM CDT) Neutrophil abs 3.9 1.7 - 6.5 K/cumm [facility] Imm gran abs 0.0 0.0 - 0.1 K/cumm [facility] Lymphocyte abs 1.1 0.8 - 3.3 K/cumm [facility] Monocyte abs 0.8 0.2 - 0.8 K/cumm [facility] Eosinophil abs 0.1 0.0 - 0.5 K/cumm [facility] Basophil abs 0.1 0.0 - 0.1 K/cumm [facility] Neutrophil pct 65.4 % [facility] Comment: Interpretive Data Percent cell count reference ranges are not reported, since discordance with absolute values may lead to misinterpretation of CBC data. Current Interpretive Data was last revised on 2017. Imm gran pct 0.3 % [facility] Comment: Interpretive Data Percent cell count reference ranges are not reported, since discordance with absolute values may lead to misinterpretation of CBC data. Current Interpretive Data was last revised on 2017. Lymphocyte pct 18.6 % [facility] Comment: Interpretive Data Percent cell count reference ranges are not reported, since discordance with absolute values may lead to misinterpretation of CBC data. Current Interpretive Data was last revised on 2017. Monocyte pct 12.9 % [facility] Comment: Interpretive Data Percent cell count reference ranges are not reported, since discordance with absolute values may lead to misinterpretation of CBC data. Current Interpretive Data was last revised on 2017. Eosinophil pct 2.0 % [facility] Comment: Interpretive Data Percent cell count reference ranges are not reported, since discordance with absolute values may lead to misinterpretation of CBC data. Current Interpretive Data was last revised on 2017. Basophil pct 0.8 % [facility] Comment: Interpretive Data Percent cell count reference ranges are not reported, since discordance with absolute values may lead to misinterpretation of CBC data. Current Interpretive Data was last revised on 2017. Blood specimen (specimen) 08/14/2020 9:38 AM CDT 08/14/2020 9:54 AM CDT Amparo Vergara MD LAB BLOOD ORDERABLES Final Resul t Performing Organization Address [facility] de Phone Number [address] [address] * (ABNORMAL) Hemoglobin A1c (08/14/2020 9:38 AM CDT) Pathologist [facility] [place] Hgb A1C 6.0(H) 4.0 - 5.6 % [facility] Estimated Average Glucose 126 mg/dL [facility] Comment: The ADA recommends reporting an estimated Average Glucose (eAG) with all Hemoglobin A1c results using the equation derived from a study of 507 normal and diabetic adults. ??Minority populations were underrepresented and children were not included. ?? (Diabetes Care 31:8836-6780, 2008). ??The eAG is not equivalent to a fasting glucose. Blood specimen (specimen) 08/14/2020 9:38 AM CDT 08/14/2020 9:54 AM CDT Amparo Vergara MD LAB BLOOD ORDERABLES Final Resul t Performing Organization Address [facility] de Phone Number [address] [address] * Basic metabolic panel (08/14/2020 9:38 AM CDT) Pathologist [facility] [place] Sodium 139 135 - 145 mmol/L [facility] Potassium, pl 4.2 3.3 - 4.9 mmol/L [facility] Chloride 105 97 - 110 mmol/L [facility] CO2 27 22 - 32 mmol/L [facility] Anion gap 7 2 - 15 mmol/L [facility] BUN 16 8 - 25 mg/dL [facility] Creatinine 1.10 0.60 - 1.10 mg/dL [facility] Glucose 189 70 - 199 mg/dL [facility] Comment: Interpretive Data Fasting glucose >/= 126 mg/dl is diagnostic for diabetes. ?? Fasting is defined as no caloric intake for at least 8 hours. Fasting glucose between 100 mg/dl to 125 mg/dl is diagnostic of prediabetes. In a patient with classic symptoms of hyperglycemia or hyperglycemic crisis, a random glucose >/= 200 mg/dl is diagnostic for diabetes. In the absence of unequivocal hyperglycemia, results should be confirmed by repeat testing. The classification and Diagnosis of Diabetes Diabetes Care 2017;40 (Suppl. 1):S11. Current interpretive data was last revised 2017. Calcium 10.0 8.5 - 10.3 mg/dL [facility] Blood specimen (specimen) 08/14/2020 9:38 AM CDT 08/14/2020 9:54 AM CDT us Amparo Vergara MD LAB BLOOD ORDERABLES Final Resul t [facility] [address] Department [place] [address] * (ABNORMAL) CBC with auto differential (08/14/2020 9:38 AM CDT) WBC 5.9 3.8 - 9.9 K/cumm [facility] Hgb 11.3(L) 11.9 - 15.5 g/dL [facility] Hct 35.6 35.6 - 45.5 % [facility] Plt 186 150 - 400 K/cumm [facility] MPV 12.9(H) 9.1 - 12.3 fL [facility] RBC 3.50(L) 3.90 - 5.20 M/cumm [facility] MCV 101.7(H) 81.3 - 96.4 fL [facility] MCH 32.3 27.1 - 33.3 pg [facility] MCHC 31.7(L) 32.3 - 35.7 g/dL [facility] RDW CV 12.6 11.1 - 14.9 % [facility] RDW SD 47.1 35.7 - 48.1 fL [facility] NRBC abs 0.00 0.00 - 0.01 K/cumm [facility] Blood specimen (specimen) 08/14/2020 9:38 AM CDT 08/14/2020 9:54 AM CDT Amparo Vergara MD LAB BLOOD ORDERABLES Final Resul t Performing Organization Address City/[facility]/ZIP Co de Phone Number [address] [place] [address] * POCT glucose (08/14/2020 7:53 AM CDT) Glucose, POC 90 70 - 199 mg/dL [facility] Glucose comment 1 Use This Result [facility] Blood specimen (specimen) 08/14/2020 7:53 AM CDT 08/14/2020 7:53 AM CDT Amparo Vergara MD LAB POCT ORDERABLES - DEVICE Fin al Result Performing Organization Address [facility] Co de Phone Number [address] [place] [address] * Protime-INR (08/13/2020 7:42 AM CDT) PT 15.9 12.0 - 16.1 sec [facility] Comment:Ref Range High INR 1.3 [facility] Comment: Interpretive data Oral anticoagulant therapeutic ranges: Venous thromboembolism prophylaxis or treatment: 2.0-3.0 CARDIOLOGY Standard range: 2.0-3.0 High-intensity range: 2.5-3.5 Refer to indication-specific guidelines for appropriate target ranges for prosthetic heart valve replacement. Current interpretive data was last revised on 2019. Blood specimen (specimen) 08/13/2020 7:42 AM CDT 08/13/2020 8:39 AM CDT Amparo Vergara MD LAB BLOOD ORDERABLES Final Resul t Performing Organization Address City/[facility] Co de Phone Number KERRIE [address] [place] [address] * (ABNORMAL) Protime-INR (08/12/2020 7:16 AM CDT) PT 17.2(H) 12.0 - 16.1 sec [facility] Comment:Ref Range High INR 1.4 [facility] Comment: Interpretive data Oral anticoagulant therapeutic ranges: Venous thromboembolism prophylaxis or treatment: 2.0-3.0 CARDIOLOGY Standard range: 2.0-3.0 High-intensity range: 2.5-3.5 Refer to indication-specific guidelines for appropriate target ranges for prosthetic heart valve replacement. Current interpretive data was last revised on 2019. Blood specimen (specimen) 08/12/2020 7:16 AM CDT 08/12/2020 7:32 AM CDT Narrative [facility] - 08/12/2020 7:58 AM CDT Baseline lab required by Joint Commission unless preformed in the last 48 hours. Draw prior to anticoagulation administration. Amparo Vergara MD LAB BLOOD ORDERABLES Final Resul t Performing Organization Address [facility] Co de Phone Number KERRIE [address] [place] [address] documented in this encounter Visit Diagnoses Diagnosis Cerebral aneurysm- Primary Cerebral aneurysm, nonruptured Admission for aftercare Unspecified aftercare Paroxysmal atrial flutter (CMS/HCC) (HCC) Admission for aftercare Unspecified aftercare VAZQUEZ on CPAP Elevated troponin Other abnormal blood chemistry History of mechanical aortic valve replacement Paroxysmal atrial flutter (CMS/HCC) (HCC) HLD (hyperlipidemia) Other and unspecified hyperlipidemia Anemia Unspecified anemia Peripheral neuropathy Unspecified hereditary and idiopathic peripheral neuropathy Depression Depressive disorder, not elsewhere classified HTN (hypertension), benign Essential hypertension, benign Diabetes mellitus (HCC) Type II or unspecified type diabetes mellitus without mention of complication, not stated as uncontrolled documented in this encounter Admitting Diagnoses Diagnosis Admission for aftercare Unspecified aftercare documented in this encounter Administered Medications Inactive Administered Medications - up to 3 most recent administrations Medication Order MAR Action Action Date Dose Rate Site acetaminophen (TYLENOL) tablet 650 mg 650 mg, oral, Every 6 hours PRN, pain, Starting on 08/12/20 at 1810 Given 08/16/2020 9:27 PM CDT 650 mg Given 08/15/2020 9:01 PM CDT 650 mg Given 08/13/2020 5:41 PM CDT 650 mg albuterol HFA (PROVENTIL HFA,VENTOLIN HFA,PROAIR HFA) 90 mcg/actuation inhaler 1 puff 1 puff, inhalation, Every 4 hours PRN, wheezing, Starting on 08/11/20 at 1828 amiodarone (PACERONE) tablet 100 mg 100 mg, oral, Daily, First dose on 08/12/20 at 0900 Given 08/17/2020 8:47 AM CDT 100 mg Given 08/16/2020 8:19 AM CDT 100 mg Given 08/15/2020 7:59 AM CDT 100 mg atorvastatin (LIPITOR) tablet 10 mg 10 mg, oral, Nightly, First dose on 08/11/20 at 2100 Given 08/16/2020 9:26 PM CDT 10 mg Given 08/15/2020 8:58 PM CDT 10 mg Given 08/14/2020 9:05 PM CDT 10 mg enoxaparin (LOVENOX) syringe 100 mg 100 mg (rounded from 91.8 mg = 1 mg/kg ? 91.8 kg), subcutaneous, Every 12 hours scheduled, First dose on 08/11/20 at 2100, Indications: Mechanical Valve Thromboembolism Prophylaxis, bridge therapyIndications:Mechanical Valve Thromboembolism Prophylaxis,bridge therapy Given 08/16/2020 9:26 PM CDT 100 mg Left Lower Abdomen Given 08/16/2020 8:19 AM CDT 100 mg Ri ght Lower Abdomen Given 08/15/2020 8:58 PM CDT 100 mg Le ft Upper Abdomen ferrous sulfate tablet 325 mg 325 mg (65 mg of elemental iron), oral, Daily with breakfast, First dose on 08/12/20 at 0800, Indications: Iron Deficiency AnemiaIndications:Iron Deficiency Anemia Given 08/17/2020 8:46 AM CDT 325 mg Given 08/16/2020 8:21 AM CDT 325 mg Given 08/15/2020 7:58 AM CDT 325 mg fluticasone propionate (FLONASE) 50 mcg/actuation nasal spray 1 spray 1 spray, each nostril, Daily, First dose on 08/13/20 at 1915, For 14 days, Indications: Chronic Non-Allergic RhinitisIndications:Chronic Non-Allergic Rhinitis Given 08/16/2020 8:21 AM CDT 1 spray Given 08/15/2020 7:59 AM CDT 1 spray Given 08/14/2020 7:49 AM CDT 1 spray gabapentin (NEURONTIN) capsule 300 mg 300 mg, oral, 2 times daily, First dose on 08/11/20 at 2100, Do not crush, break, or open. Given 08/17/2020 8:46 AM CDT 300 mg Given 08/16/2020 9:26 PM CDT 300 mg Given 08/16/2020 8:21 AM CDT 300 mg HYDROcodone-acetaminophen (NORCO) 10-325 mg per tablet 2 tablet 2 tablet, oral, Every 8 hours PRN, 1st line for pain, Starting on 08/11/20 at 1925, Indications: PainIndications:Pain Given 08/13/2020 9:01 PM CDT 2 ta blets lisinopriL (PRINIVIL,ZESTRIL) tablet 2.5 mg 2.5 mg, oral, Daily, First dose on 08/12/20 at 0900 Given 08/17/2020 8:46 AM CDT 2.5 mg Given 08/16/2020 8:20 AM CDT 2.5 mg Given 08/15/2020 7:58 AM CDT 2.[address] (PROTONIX) extended release tablet 40 mg 40 mg, oral, Daily before breakfast, First dose on 08/12/20 at 0730, Do not crush, chew, cut, dissolve, open or otherwise manipulate tablet/capsule., Indications: Stress Ulcer Prophylaxis, Treatment of Non-Bleeding Gastric DisorderIndications:Stress Ulcer Prophylaxis,Treatment of Non-Bleeding Gastric Disorder Given 08/17/2020 5:31 AM CDT 40 mg Given 08/17/2020 5:28 AM CDT 40 mg Given 08/17/2020 5:27 AM CDT 40 mg polyethylene glycol (MIRALAX) packet 17 g 17 g, oral, 2 times daily PRN, constipation, Starting on 08/11/20 at 1820, Indications: constipationIndications:constipation senna (SENOKOT) tablet 1 tablet 1 tablet, oral, 2 times daily, First dose on 08/11/20 at 2100 Given 08/17/2020 8:47 AM CDT 1 tablet Given 08/16/2020 9:26 PM CDT 1 tablet Given 08/16/2020 8:20 AM CDT 1 tablet venlafaxine XR (EFFEXOR-XR) extended release capsule 150 mg 150 mg, oral, Daily with breakfast, First dose (after last modification) on 08/12/20 at 0800, Do not crush, chew, cut, dissolve, open or otherwise manipulate tablet/capsule., Indications: major depressive disorderIndications:major depressive disorder Given 08/17/2020 8:4 7 AM CDT 150 mg Given 08/16/2020 8:19 AM CDT 150 mg Given 08/15/2020 7:58 AM CDT 150 mg warfarin (COUMADIN) tablet 5 mg 5 mg, oral, Daily (for warfarin), First dose on 08/12/20 at 1800, Target INR: 2 - 3, Indications: Mechanical Circulatory SupportIndications:Mechanical Circulatory Support Given 08/14/2020 5:32 PM CDT 5 mg Given 08/13/2020 5:41 PM CDT 5 mg Given 08/12/2020 4:39 PM CDT 5 mg warfarin (COUMADIN) tablet 6 mg 6 mg, oral, Daily (for warfarin), First dose (after last modification) on Thu08/15/20 at 1800, Target INR: 2 - 3, Indications: Mechanical Circulatory SupportIndications:Mechanical Circulatory Support Given 08/16/2020 5:32 PM CDT 6 mg Given 08/15/2020 6:17 PM CDT 6 mg documented in this encounter Discontinued Medications Medication Sig Discontinue Reason Start Date End Da te azelastine (ASTELIN) 137 mcg (0.1 %) nasal spray USE 1 SPRAY(S) IN EACH NOSTRIL TWICE DAILY DIRECTED Reorder 05/21/2020 08/17/2020 cholecalciferol, vitamin D3, 1,000 unit tablet,chewable Take by mouth daily Reorder 021 warfarin (COUMADIN) 2 mg tablet take 1 tablet (2MG) by oral route every evening Dr Maxwell manages Stop Taking at Discharge 03/19/2011 08/17/2020 furosemide (LASIX) 40 mg tablet take 1 tablet (40MG) by oral route every day Stop Taking at Discharge 03/19/2011 08/17/2020 warfarin (COUMADIN) 10 mg tablet take 1 tablet (10MG) by oral route every evening Stop Taking at Discharge 03/19/2011 08/17/2020 venlafaxine 150 mg tablet extended release 24hr 24 hr tablet take 1 tablet by oral route every day in the morning at the same time each day with food Stop Taking at Discharge 08/15/2014 08/17/2020 gabapentin (NEURONTIN) 300 mg capsule take 1 capsule by oral route 2 times every day Stop Taking at Discharge 08/15/2014 08/17/2020 ferrous sulfate 325 mg (65 mg of elemental iron) tabletIndications:Ir on Deficiency Anemia Take 325 mg of elemental iron by mouth daily Stop Taking at Discharge 08/17/2020 fluticasone (FLONASE) 50 mcg/actuation nasal spray Administer 1 spray into each nostril daily. Stop Taking at Discharge 08/17/2020 PROAIR HFA 90 mcg/actuation inhaler as needed Stop Taking at Discharge 05/31/2018 08/17/2020 cyanocobalamin (Vitamin B-12) 1,000 mcg tabletIndications:Pr evention of Vitamin B12 Deficiency Take 1,000 mcg by mouth daily Stop Taking at Discharge 08/17/2020 diclofenac sodium (VOLTAREN) 1 % gel 2 g 4 (four) times a day Stop Taking at Discharge 06/11/2020 08/17/2020 docusate sodium (DOK) 100 mg tabletIndications:co nstipation Take 100 mg by mouth 2 (two) times a day as needed for constipation Stop Taking at Discharge 08/17/2020 HYDROcodone-acetamin ophen (NORCO) 10-325 mg per tabletIndications:Pa in Take 1 tablet by mouth daily Stop Taking at Discharge 08/17/2020 lactulose solution 10 gram/15mL 2 (two) times a day Stop Taking at Discharge 08/17/2020 oxymetazoline (oxymetazoline) 0.05 % nasal spray Stop Taking at Discharge 08/17/2020 warfarin (COUMADIN) 6 mg tablet TAKE 1 TABLET (6 MG) ON Thursday AND THURSDAY. THEN TAKE 7 MG ON Thursday AND THURSDAY. Stop Taking at Discharge 04/27/2020 08/17/2020 documented as of this encounter Active and Recently Administered Medications Times are shown in CDT. Scheduled Medication Order 08/15/2020 08/16/2020 08/17/2020 amiodarone (PACERONE) tablet 100 mg 100 mg, oral, Daily, First dose on 08/12/20 at 0900 0759 (Given - Provider: Rashid Terrazas RN) 0819 (Given - Provider: Rashid Terrazas RN) 0847 (Given - Provider: Sol Balderrama, DALE) atorvastatin (LIPITOR) tablet 10 mg 10 mg, oral, Nightly, First dose on 08/11/20 at 2100 2057 (Given - Provider: Peggy Cedeño LPN) 2125 (Given - Provider: Taty Collins, DALE) enoxaparin (LOVENOX) syringe 100 mg 100 mg (rounded from 91.8 mg = 1 mg/kg ? 91.8 kg), subcutaneous, Every 12 hours scheduled, First dose on 08/11/20 at 2100, Indications: Mechanical Valve Thromboembolism Prophylaxis, bridge therapy 0757 (Given - Provider: Rashid Terrazas RN)2057 (Given - Provider: Peggy Cedeño LPN) 08 (Given - Provider: Rashid Terrazas RN)212 (Given - Provider: Taty Collins, DALE) 0848 (Not Given - Provider: Sol Balderrama, DALE - Reason: Patient/family refused) ferrous sulfate tablet 325 mg 325 mg (65 mg of elemental iron), oral, Daily with breakfast, First dose on 08/12/20 at 0800, Indications: Iron Deficiency Anemia 0758 (Given - Provider: Rashid Terrazas RN) 0821 (Given - Provider: Rashid Terrazas RN) 0846 (Given - Provider: Sol Balderrama, DALE) fluticasone propionate (FLONASE) 50 mcg/actuation nasal spray 1 spray 1 spray, each nostril, Daily, First dose on Thu08/13/20 at 1915, For 14 days, Indications: Chronic Non-Allergic Rhinitis 0759 (Given - Provider: Rashid Terrazas RN) 0821 (Given - Provider: Rashid Terrazas RN) 0848 (Not Given - Provider: Sol Balderrama, DALE - Reason: Patient/family refused) gabapentin (NEURONTIN) capsule 300 mg 300 mg, oral, 2 times daily, First dose on 08/11/20 at 2100, Do not crush, break, or open. 0758 (Given - Provider: Rashid Terrazas RN)2058 (Given - Provider: Peggy Ceedño LPN) 0821 (Given - Provider: Rashid Terrazas RN)2125 (Given - Provider: Taty Collins RN) 0846 (Given - Provider: Sol Balderrama, DALE) lisinopriL (PRINIVIL,ZESTRIL) tablet 2.5 mg 2.5 mg, oral, Daily, First dose on 08/12/20 at 0900 0758 (Given - Provider: Rashid Terrazas RN) 0820 (Given - Provider: Rashid Terrazas RN) 0846 (Given - Provider: Sol Balderrama, DALE) pantoprazole DR (PROTONIX) extended release tablet 40 mg 40 mg, oral, Daily before breakfast, First dose on 08/12/20 at 0730, Do not crush, chew, cut, dissolve, open or otherwise manipulate tablet/capsule., Indications: Stress Ulcer Prophylaxis, Treatment of Non-Bleeding Gastric Disorder 0758 (Given - Provider: Rashid Terrazas RN) 0820 (Given - Provider: Rashid Terrazas RN) 0527 (Given - Provider: Griselda Zhou, DALE)0528 (Given - Provider: Griselda Zhou RN)0531 (Given - Provider: Griselda Zhou RN) senna (SENOKOT) tablet 1 tablet 1 tablet, oral, 2 times daily, First dose on 08/11/20 at 2100 0758 (Given - Provider: Rashid Terrazas RN)2056 (Given - Provider: Peggy Cedeño LPN) 819 (Given - Provider: Rashid Terrazas RN)2125 (Given - Provider: Taty Collins, DALE) 0847 (Given - Provider: Sol Balderrama, DALE) venlafaxine XR (EFFEXOR-XR) extended release capsule 150 mg 150 mg, oral, Daily with breakfast, First dose (after last modification) on Thu08/12/20 at 0800, Do not crush, chew, cut, dissolve, open or otherwise manipulate tablet/capsule., Indications: major depressive disorder 0758 (Given - Provider: Rashid Terrazas RN) 0819 (Given - Provider: Rashid Terrazas RN) 0847 (Given - Provider: Sol Balderrama, DALE) warfarin (COUMADIN) tablet 6 mg 6 mg, oral, Daily (for warfarin), First dose (after last modification) on Thu08/15/20 at 1800, Target INR: 2 - 3, Indications: Mechanical Circulatory Support 1816 (Given - Provider: Rashid Terrazas RN) 1731 (Given - Provider: Rashid Terrazas RN) PRN Medication Order 08/15/2020 08/16/2020 08/17/2020 acetaminophen (TYLENOL) tablet 650 mg 650 mg, oral, Every 6 hours PRN, pain, Starting on 08/12/20 at 1810 2100 (Given - Provider: Peggy Cedeño LPN)2219 (Canceled Entry - Provider: Peggy Cedeño LPN) 2126 (Given - Provider: Taty Collins RN) albuterol HFA (PROVENTIL HFA,VENTOLIN HFA,PROAIR HFA) 90 mcg/actuation inhaler 1 puff 1 puff, inhalation, Every 4 hours PRN, wheezing, Starting on 08/11/20 at 1828 HYDROcodone-acetaminophen (NORCO) 10-325 mg per tablet 2 tablet 2 tablet, oral, Every 8 hours PRN, 1st line for pain, Starting on 08/11/20 at 1925, Indications: Pain polyethylene glycol (MIRALAX) packet 17 g 17 g, oral, 2 times daily PRN, constipation, Starting on 08/11/20 at 1820, Indications: constipation documented in this encounter Orders Medications Ordered That Kota ht Not Have Been Administered Count Last Ordered Date First Ordered Date albuterol HFA (PROVENTIL HFA ,VENTOLIN HFA,PROAIR HFA) 90 mcg/actuation inhaler 1 puff 1 08/11/2020 polyethylene glycol (MIRALAX) packet 17 g 1 08/11/2020 venlafaxine XR (EFFEXOR-XR) extended release capsule 150 mg 1 08/11/2020 Diet Count Last Ordered Date First Orde red Date ADULT DISCHARGE DIET 1 08/17/2020 Nursing Count Last Ordered Date First Orde red Date DISCHARGE ACTIVITY 1 08/17/2020 DISCHARGE CALL PROVIDER 5 08/17/2020 VITAL SIGNS 1 08/11/2020 WEIGH PATIENT 1 08/11/2020 Admission Count Last Ordered Date First Orde red Date ADMIT TO PENITENTIARY FACILITY 1 021 documented in this encounter Care Teams Wet Silk Hanger Relationship Specialty Start Date End Date Miscellaneous, Not In File PCP - General 08/07/20 2 documented as of this encounter
--- OUTSIDE RECORDS SUMMARY | 2024-03-15 01:57 | XMS_ITS | Encounter Summary ---
Author Organization [facility] Address [address] [place] [address] Care Team Providers Care Auto Job Estimator Name Role Phone Juan Pablo Dominguez MD Primary Care Provider Miscellaneous, Not In File Primary Care Provider Unavailable Encounter Details Date Type Department Care Team (Late st Contact Info) Description 07/24/2020 Telephone [facility] Cardiology [address] [place] [address] Maurice Paredes MD [address] [facility] [address] [place] [address] Social History Tobacco Use Types [...] file 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 Called the patient but was unable to leave a message.Called her sister, Shannon, who is her tooth cutter contact wheel. Unable to leave a message with her either. * Telephone Encounter - Cameron Lee - 07/24/2020 4:09 PM CDT Pt calling requesting refill for Warfrin. States she takes 6mgs daily. Contact:[phone] documented in this encounter Plan of Treatment Not on file documented as of this encounter Visit Diagnoses Not on filedocumented in this encounter Care Teams Auto Job Estimator Relationship Specialty Start Date End Date Juan Pablo Dominguez MD [address] [place] [id number] PCP - General Family Medicine 01/12/20 08/06/20 Miscellaneous, Not In File PCP - General 08/07/2003/10/ 2 documented as of this encounter
--- OUTSIDE RECORDS SUMMARY | 2024-03-15 01:57 | XMS_ITS | Encounter Summary ---
Author Organization [facility] Address [address] [place] [address] Care Team Providers Care Fire Technician Name Role Phone Juan Pablo Dominguez MD Primary Care Provider Reason for Visit * Reason Onset Date Comments Current Med List 01/13/2020 Encounter Details Date Type Department Care Team (Late st Contact Info) Description 01/13/2020 Telephone [facility] Cardiology [address] [place] [id number] Diana Shi MA Current Med List Social History Tobacco Use Types Packs/Day Years Used Date Smoking Tobacco: Never Smokeless Tobacco: Never Alcohol Use Standard Drinks/Week Comments No 0 (1 standard drink = 0.6 oz pur e alcohol) Comments Unknown Sex and Gender Information Value Date Recorded Sex Assigned at Not on file 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 Spoke with Neema and notified her: -Amiodarone decreased to 100mg (1/2 tablet) -Chest xray ordered -PFT ordered - 2 month f/u (needs scheduled) -Stop Metoprolol due to low HR Neema understood and was already aware of Amiodarone change. She will have pt call to make the 2 month f/u (she works and does not schedule pt's appts). Med List provided by Neema (has been updated in chart) Amiodarone 100 mg daily Atorvastatin 10 mg daily B12 1000 mcg daily Iron 325 mg daily Flonase 50 mcg daily Gabapentin 300 mg x3 daily Lisinopril 2.5 mg daily Omeprazole 20 mg daily Proair Venlafaxine 150 mg daily Warfarin 6 mg daily (except Fri) No longer taking Vit D DIRECTOR documented in this encounter Plan of Treatment Not on file documented as of this encounter Visit Diagnoses Not on filedocumented in this encounter Care Teams Fire Technician Relationship Specialty Start Date End Date Juan Pablo Dominguez MD [address] [address] PCP - General Family Medicine 01/12/20 08/06/20 documented as of this encounter
--- OUTSIDE RECORDS SUMMARY | 2024-03-15 01:57 | XMS_ITS | Encounter Summary ---
Author Organization [facility] Address [address] [place] [address] Care Team Providers Care Consumer Studies Professor Name Role Phone Hong Holder MD Primary Care Provider [phone] Reason for Visit * Diagnostic Imaging (Routine) - Closed Specialty Diagnoses / Procedures Referred By Contac t Referred To Contact Diagnoses Hypertensive heart disease with chronic diastolic congestive heart failure (CMS/HCC) (HCC) Dyspnea on exertion Paroxysmal atrial flutter (CMS/HCC) (HCC) Dyslipidemia associated with type 2 diabetes mellitus (HCC) LBBB (left bundle branch block) Procedures NM MPI SPECT (Rest and/or Stress) Multiple Studies Maurice Paredes MD Phone: tel: fax: Referral ID Status Reason Start Date Expiration Date Visits Re quested Visits Authorized [id number] Closed 12/10/2018 01/09/2019 1 1 Encounter Details Date Type Department Care Team (Latest Contact Info) Description 12/13/2018 10:15 AM CDT Ancillary Procedure [facility] Cardiology [address] [place] [address] Hypertensive heart disease with chronic diastolic congestive heart failure (CMS/HCC); Dyspnea on exertion; Paroxysmal atrial flutter (CMS/HCC); Dyslipidemia associated with type 2 diabetes mellitus (CMS/HCC); LBBB (left bundle branch block) Social History Tobacco Use Types Packs/Day Years Used Date Smoking Tobacco: Never Smokeless Tobacco: Never Alcohol Use Standard Drinks/Week Comments No 0 (1 standard drink = 0.6 oz pur e alcohol) Comments Unknown Sex and Gender Information Value Date Recorded Sex Assigned at Not on file 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 Gender Identity Not on file Sexual Orientation Not on file documented as of this encounter Plan of Treatment Not on file documented as of this encounter Procedures Procedure Name Priority Date/Time Associated Diagnosis Comments NM MPI SPECT (REST AND/OR STRESS) MULTIPLE STUDIES Schedule Routine, Read Routine (OP Routine) 12/13/2018 10:13 AM CDT Hypertensive heart disease with chronic diastolic congestive heart failure (CMS/HCC) Dyspnea on exertion Paroxysmal atrial flutter (CMS/HCC) Dyslipidemia associated with type 2 diabetes mellitus (CMS/HCC) LBBB (left bundle branch block) documented in this encounter Results * NM MPI SPECT (Rest and/or Stress) Multiple Studies (12/13/2018 10:13 AM CDT) Anatomical Region Laterality Modality Body N/A Nuclear Medicine 12/13/2018 9:55 AM CDT Narrative 12/14/2018 12:48 PM CDT [facility] [address] [place] [address] [address] [id number] [address] [facility] [address] [address] P:[phone] P:[phone] MPI Imaging Report Patient Name: RADHA BOBO A : [id number] Study Date: 12/13/2018 9:55:38 AM Gender: F Tech: [facility] Location: [facility] Ref.Provider: MAURICE PAREDES Height(Cm): 162.6 BSA: Weight(Kg): 80.7 BMI: 30.52Order Provider: MAURICE PAREDES Physician: Referring Physician: Dr. Holder. HCG Physician: Dilma Paredes M.D. Interpreting Physician: Khadra Hutchins D.O. Stress Supervision: Christiane Carrera M.D., F.A.C.C. Procedures: Myocardial perfusion imaging with Tc99M Sestamibi SPECT at rest and stress post regadenoson (Lexiscan) infusion. Indications: Paroxysmal Atrial Flutter, Hypertension, Diabetes, Family Hx CAD, High Cholesterol, and TORRES. Findings: Procedural Findings: One day rest/stress was [...] - age uncertain. Atrial fibrillation. Post ECG: No diagnostic ST changes. Arrhythmia: No arrhythmias seen. Perfusion Findings: Normal perfusion imaging. Technical quality of study is good. Significant patient motion was not noted. Left ventricle cavity size at rest is normal. Left ventricle cavity size with stress is unchanged. A TID of 1.04 was automatically calculated. LV Function: Global left ventricular function is normal. Left ventricular ejection fraction is 62 %. Conclusions: Global left ventricular function is normal. Left ventricular ejection fraction is 62 %. Myocardial perfusion imaging is normal. Atrial fibrillation. Possible old anterior IA. Negative EKG portion of stress test. Electronically Signed By: Christiane Carrera MD, [facility] 2018-12-13 18:20:07 CDT Electronically Signed By: Khadra Hutchins DO, FACC, BRENDAN MCCOY 2018-12-14 12:48:31 CDT Procedure Note Khadra Hutchins DO - 12/14/2018 [facility] [facility] [address] [address] [address] [address] P:[phone] P:[phone] MPI Imaging Report Patient Name: RADHA BOBOPastor ID: [id number] : [id number] Date: 12/13/2018 9:55:38 AM Gender: FAccession #: [id number] Tech: IZAIAH YATESLocation[facility] Ref.Provider: DIMMITT, WALTERHeight(Cm): 162.6 BSA: Weight(Kg): 80.7 BMI: 30.52Order Provider: MAURICE PAREDES Physician: Referring Physician: Dr. Holder. HCG Physician: Dilma Paredes M.D. Interpreting Physician: Khadra Hutchins D.O. Stress Supervision: Christiane Carrera M.D., F.A.C.C. Procedures: Myocardial perfusion imaging with Tc99M Sestamibi SPECT at rest and stresspost regadenoson (Lexiscan) infusion. Indications: Paroxysmal Atrial Flutter, Hypertension, Diabetes, Family Hx CAD, HighCholesterol, and TORRES. Findings: Procedural Findings: One day rest/stress was used. Tc99m Sestamibi injected IV at rest was 10.2millicuries. 32.7 millicuries of Tc99M Sestamibi injected IV during Lexiscan stress.Lexiscan 0.4mg administered IV over 10 seconds. Patient had no symptoms during stresstest. Baseline heart rate was 60 BPM. Maximum Heart Rate Achieved was: 76 BPM. Baselineblood pressure was 180/90 mmHg. Post Stress Blood Pressure was 154/74 mmHg. Termination: Protocol complete. Resting ECG: Cannot r/o IMI - age uncertain. Cannot r/o anterior infarct - ageuncertain. Atrial fibrillation. Post ECG: No diagnostic ST changes. Arrhythmia: No arrhythmias seen. Perfusion Findings: Normal perfusion imaging. Technical quality of study is good. Significantpatient motion was not noted. Left ventricle cavity size at rest is normal. Leftventricle cavity size with stress is unchanged. A TID of 1.04 was automatically calculated. LV Function: Global left ventricular function is normal. Left ventricular ejectionfraction is 62 %. Conclusions: Global left ventricular function is normal. Left ventricular ejectionfraction is 62 %. Myocardial perfusion imaging is normal. Atrial fibrillation. Possible old anterior IA. Negative EKG portion of stress test. Electronically Signed By: Christiane Carrera MD, [facility] 2018-12-13 18:20:07 CDT Electronically Signed By: Khadra Hutchins DO, [facility], [facility] 2018-12-14 12:48:31 CDT us Maurice Paredes MD IMG NM PROCEDURES Final Result documented in this encounter Visit Diagnoses Diagnosis Hypertensive heart disease with chronic diastolic congestive heart failure (CMS/HCC) (HCC) Dyspnea on exertion Other dyspnea and respiratory abnormality Paroxysmal atrial flutter (CMS/HCC) (HCC) Dyslipidemia associated with type 2 diabetes mellitus (HCC) LBBB (left bundle branch block) Other left bundle branch block documented in this encounter Administered Medications Inactive Administered Medications - up to 3 most recent administrations Medication Order MAR Action Action Date Dose Rate Site regadenoson (LEXISCAN) 0.4 mg/5 mL injection 0.4 mg 0.4 mg, intravenous, Once, On Thu12/13/18 at 1045, For 1 dose, Administer IV push over 10 seconds., Indications: Myocardial Perfusion Imaging AdjunctIndications:Myocard ial Perfusion Imaging Adjunct Given 12/13/2018 10:14 AM CDT 0.4 mg tc-99m sestamibi unit dose injection 10.2 millicurie 10.2 millicurie, intravenous, Once in imaging, radiopharmaceutical, Starting on Thu12/13/18 at 0856, For 1 dose, Indications: Diagnostic RadiographyIndications:Sherry gnostic Radiography Given 12/13/2018 8:56 AM CDT 10.2 millicuries tc-99m sestamibi unit dose injection 33.3 millicurie 33.3 millicurie, intravenous, Once in imaging, radiopharmaceutical, Starting on Thu12/13/18 at 1013, For 1 dose, Indications: Diagnostic RadiographyIndications:Sherry gnostic Radiography Given 12/13/2018 10:14 AM CDT 33.3 millicuries documented in this encounter Care Teams Consumer Studies Professor Relationship Specialty Start Date End Date Hong Holder MD [address] [place] [address] PCP - General 06/06/16 01/11/20 documented as of this encounter
--- OUTSIDE RECORDS SUMMARY | 2024-03-15 01:57 | XMS_ITS | Encounter Summary ---
Author Organization [facility] Address [address] [place] [address] Care Team Providers Care Bookmobile Driver Name Role Phone Hong Holder MD Primary Care Provider [phone] Encounter Details Date Type Department Care Team (Late st Contact Info) Description 01/20/2019 Telephone [facility] [address] [address] [address] [place] [address] Maurice Paredes MD [address] [facility] [address] [place] [address] Social History Tobacco Use Types Packs/Day Years Used Date Smoking Tobacco: Never Smokeless Tobacco: Never Alcohol Use Standard Drinks/Week Comments No 0 (1 standard drink = 0.6 oz pur e alcohol) Comments Unknown Sex and Gender Information Value Date Recorded Sex Assigned at Not on file Legal Sex Female 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 States that pcp is managing INR's. Had it drawn Thursday and was told it was therapeutic. RVISOR BEAM DEPARTMENT documented in this encounter Plan of Treatment Not on file documented as of this encounter Visit Diagnoses Not on filedocumented in this encounter Care Teams Bookmobile Driver Relationship Specialty Start Date End Date Hong Holder MD [address] [place] [address] PCP - General 06/06/16 01/11/20 documented as of this encounter
--- OUTSIDE RECORDS SUMMARY | 2024-03-15 01:57 | XMS_ITS | Encounter Summary ---
Author Organization [facility] Address [address] [place] [address] Care Team Providers Care Audit Clerk Name Role Phone Hong Holder MD Primary Care Provider [phone] [phone] Reason for Referral * Diagnostic Imaging (Routine) - Closed Specialty Diagnoses / Procedures Referred By Ian malagon Referred To Contact Diagnoses Hypertensive heart disease with chronic diastolic congestive heart failure (CMS/HCC) (HCC) Dyspnea on exertion Paroxysmal atrial flutter (CMS/HCC) (HCC) Dyslipidemia associated with type 2 diabetes mellitus (HCC) LBBB (left bundle branch block) Procedures NM MPI SPECT (Rest and/or Stress) Multiple Studies Joyce Paredes MD Phone: tel: fax: Referral ID Status Reason Start Date Expiration Date Visits Re quested Visits Authorized [id number] Closed 12/10/2018 01/09/2019 1 1 Reason for Visit * Reason Comments Follow-up 4 mo follow up on HL D, TORRES, a-flutter, HTN, VAZQUEZ * Cardiology (Routine) - Closed Specialty Diagnoses / Procedures Referred By Ian malagon Referred To Contact Cardiology Diagnoses Other chest pain Hong Holder MD Phone: tel: fax: [facility] [address] [place] [address] Phone: tel: fax: Referral ID Status Reason Start Date Expiration Date Visits Re quested Visits Authorized [id number] Closed 10/18/2018 04/20/2019 2 2 Encounter Details Date Type Department Care Team (Late st Contact Info) Description 12/08/2018 3:30 PM CDT Office Visit [facility] [address] [place] [id number] Joyce Paredes MD [address] [facility] [address] [place] [address] Hypertensive heart disease with chronic diastolic congestive heart failure (CMS/HCC) (Primary Dx); Dyspnea on exertion; Paroxysmal atrial flutter (CMS/HCC); H/O mechanical aortic valve replacement; Encounter for monitoring sotalol therapy; Dyslipidemia associated with type 2 diabetes mellitus (CMS/HCC); Chronic anticoagulation; Dizziness; VAZQUEZ on CPAP; LBBB (left bundle branch block) Social History Tobacco Use Types Packs/Day Years Used Date Smoking Tobacco: Never Smokeless Tobacco: Never Alcohol Use Standard Drinks/Week Comments No 0 (1 standard drink = 0.6 oz pur e alcohol) Comments Unknown Sex and Gender Information Value Date Recorded Sex Assigned at Not on file 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 Gender Identity Not on file Sexual Orientation Not on file documented as of this encounter Last Filed Vital Signs Vital Sign Reading Time Taken Comments Blood Pressure 112/56 12/08/2018 3:45 PM CDT Pulse 58 12/08/2018 3:43 PM CDT Temperature - - Respiratory Rate - - Oxygen Saturation 97% 12/08/2018 3:43 PM CDT Inhaled Oxygen Concentration - - Weight 80.7 kg (178 lb) 12/08/2018 3:43 PM CDT Height 162.6 cm (5' 4 ) 12/08/2018 3:43 PM CDT Body Mass Index 30.55 12/08/2018 3:43 PM CDT documented in this encounter Progress Notes * Joyce Paredes MD - 12/08/2018 3:30 PM CDT [facility] DATE OF VISIT: 12/08/2018 CHIEF COMPLAINT Chief Complaint Patient presents with ??? Follow-up 4 mo follow up on HLD, TORRES, a-flutter, HTN, VAZQUEZ HPI Ana Maria Taz Bobo is a 73 y.o. female with a PMHx of mechanical [...] to use CPAP due to head/neck pains. 5/3/17 Taken off Simvastatin and started on new [...] Going to see PCP. 08/12/17 Admitted to [facility] in June due to SOB found to be in A.Fib and started on Diltiazem and Metoprolol. Was discharged still with TORRES then sxs continued to worsen and readmitted to [facility] in July. She was started on Sotalol [...] little. 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 Not using CPAP for a year. She later admits she is only taking maybe 4 of her medicines but she is not sure if she is taking Sotalol. MEDICAL HISTORY Past Medical History: Diagnosis Date ??? Adiposity Obesity ??? HX OTHER MEDICAL Sleep Apnea, CPAP [...] : Myocardial Infarction MEDICATIONS HOME MEDICATIONS : alendronate (FOSAMAX) 70 mg tablet atorvastatin (LIPITOR) 10 mg tablet cholecalciferol (VITAMIN D-3) 1,000 unit ferrous sulfate 325 mg (65 mg of elemental iron) tablet fluticasone (FLONASE) 50 mcg/actuation nasal spray furosemide (LASIX) 40 mg tablet gabapentin (NEURONTIN) 300 mg capsule HYDROcodone-acetaminophen (LORCET 10-650) 10-650 mg per tablet magnesium oxide 400 mg capsule metFORMIN (GLUCOPHAGE) 1,000 mg tablet omeprazole (PriLOSEC) 20 mg capsule polyethylene glycol (MIRALAX) 17 gram packet PROAIR HFA 90 mcg/actuation inhaler sotalol (BETAPACE) 80 mg tablet traZODone (DESYREL) 50 mg tablet venlafaxine 150 mg tablet extended release 24hr 24 hr tablet warfarin (COUMADIN) 10 mg tablet warfarin (COUMADIN) 2 mg tablet tiZANidine (ZANAFLEX) 2 mg tablet meclizine (ANTIVERT) [address] (PROTONIX) 40 mg EC tablet pioglitazone (ACTOS) 15 mg tablet sotalol (BETAPACE) 80 mg tablet ALLERGIES Allergies Allergen Reactions ??? Bacitracin ??? Benzalkonium ??? Gramicidin D ??? Hydrocortisone ??? Neomycin ??? Polymyxin B ??? Skin Cleanser REVIEW OF SYSTEMS Review of Systems Constitution: Positive for malaise/fatigue and weight loss. Negative for decreased appetite, diaphoresis, fever and night sweats. HENT: Negative for hearing loss and nosebleeds. [...] suspicious lesions. Musculoskeletal: Positive for arthritis, back pain, joint pain and myalgias. Negative for falls andmuscle weakness. Gastrointestinal: Negative for abdominal pain, heartburn, hematemesis, melena and nausea. Genitourinary: Negative for dysuria, hematuria and nocturia. Neurological: Positive for headaches and weakness. Negative for excessive daytime sleepiness, dizziness, focal weakness, light-headedness and loss of balance. Psychiatric/Behavioral: Negative for altered mental status, depression and memory loss. The patientis not nervous/anxious. Allergic/Immunologic: Negative for environmental allergies. PHYSICAL EXAM Vitals BP 112/56 (BP Location: Right arm, Patient Position: Standing) Pulse 58 Ht 162.6 cm (5' 4 ) Wt 80.7 kg (178 lb) SpO2 97% BMI 30.55 kg/m?? Weight: 80.7 kg (178 lb) Height: 162.6 cm (5' 4 ) Body mass index is 30.55 kg/m??. Physical Exam Constitutional: She is oriented to person, place, and time. She appears well- developed and well-nourished. She is cooperative. No distress. HENT: Head: Normocephalic and atraumatic. Right Ear: External ear normal. Left Ear: External ear normal. Nose: Nose normal. Mouth/Throat: Oropharynx is clear and moist and mucous membranes are normal. Normal dentition. Eyes: Conjunctivae, EOM and lids are normal. No scleral icterus. Neck: Normal range of motion. Neck supple. Normal carotid pulses, no hepatojugular reflux and no JVD present. Carotid bruit is not present. No tracheal deviation present. No thyromegaly present. Cardiovascular: Normal rate, regular rhythm, S1 normal, S2 normal, intact distal pulses and normal pulses. Exam reveals no gallop, no S3, no S4, no distant heart sounds and no friction rub. Murmur heard. Medium-pitched early systolic murmur is present with a grade of 2/6. [place] metallic S2 Pulmonary/Chest: Effort normal and breath sounds normal. No respiratory distress. She has no wheezes. She has no rales. She exhibits no tenderness. Healed median sternotomy Diminished breath sounds Abdominal: Soft. Bowel sounds are normal. She exhibits no distension and no mass. There is no tenderness. There is no rebound and no guarding. obese Musculoskeletal: Normal range of motion. She exhibits no edema, tenderness or deformity. Lymphadenopathy: She has no cervical adenopathy. Neurological: She is alert and oriented to person, place, and time. No cranial nerve deficit. She exhibits normal muscle tone. Coordination normal. Skin: Skin is warm and dry. No ecchymosis, no petechiae and no rash noted. She is not diaphoretic. No cyanosis or erythema. No pallor. Nails show no clubbing. Psychiatric: She has a normal mood and affect. Her speech is normal and behavior is normal. Judgment normal. LABS AND OTHER DIAGNOSTIC TESTS No visits with results within 3 Month(s) from this visit. Latest known visit with results is: Office Visit on 08/03/2018 Component Date Value Ref Range Status ??? Cholesterol, POC 08/03/2018 190 mg/dL Final ??? HDL, POC 08/03/2018 72 mg/dL Final ??? Triglycerides, POC 08/03/2018 125 mg/dL Final ??? LDL, Direct, POC 08/03/2018 93 mg/dL Final ??? Chol/HDL Ratio, POC 08/03/2018 2.6 Final ??? Non-HDL Cholesterol, POC 08/03/2018 117 mg/dL Final ??? Cholesterol Total, POC 08/03/2018 190 mg/dL Final Results for orders placed or performed in visit on 08/03/18 POCT lipid panel Result Value Ref Range Cholesterol, POC 190 mg/dL HDL, POC 72 mg/dL Triglycerides, POC 125 mg/dL LDL, Direct, POC 93 mg/dL Chol/HDL Ratio, POC 2.6 Non-HDL Cholesterol, POC 117 mg/dL Cholesterol Total, POC 190 mg/dL 10/19/2018 2D Echocardiogram: Conclusions: Normal left [...] higher and there is now trivial AI. Personally reviewed EKG, Echocardiogram, stress test, and bloodwork/lipids and hospital records from [facility] 06/2017 and [facility] 07/2017. ASSESSMENT Diagnoses and all orders for this visit: Hypertensive heart disease with chronic diastolic congestive heart failure (CMS/HCC) (Primary) - NM MPI SPECT (Rest and/or Stress) Multiple Studies; Future Dyspnea on exertion - NM MPI SPECT (Rest and/or Stress) Multiple Studies; Future Paroxysmal atrial flutter (CMS/HCC) - ECG 12 lead - NM MPI SPECT (Rest and/or Stress) Multiple Studies; Future H/O mechanical aortic valve replacement Encounter for monitoring sotalol therapy - ECG 12 lead Dyslipidemia associated with type 2 diabetes mellitus (CMS/HCC) - NM MPI SPECT (Rest and/or Stress) Multiple Studies; Future Chronic anticoagulation Dizziness VAZQUEZ on CPAP LBBB (left bundle branch block) - NM MPI SPECT (Rest and/or Stress) Multiple Studies; Future PLAN/RECOMMENDATIONS 1. BP controlled. Monitor BP on routine basis. Call with readings. Continue consistent cardiovascular exercise, weight loss, medication compliance, and low- sodium diet. 2. Lifestyle modification counseling performed. Weight loss, exercise, reduction in caloric intake. 3. Prophylactic ABx prior to dental/surgical procedures 4. Continue systemic A/C with warfarin goal INR 2-3 monthly checks or as directed. Monitor for bleeding. -go to ER immediately if any falls, bleeding or head injuries. 5. No CHF sxs at present. Compensated. CHF counseling performed. Follow daily weight, less than 2 gdaily sodium intake, medication compliance. Call w/ wt gain >3lb in 24 hrs or worsening edema and/or TORRES. 6. DM managed by PCP. Needs to see PCP regarding resuming CPAP and for her memory loss issues. She verbalized understanding. I wrote down issues to discuss with her PCP. 7. Personally reviewed lipids 08/03/18 LDL 93, not ideally controlled. Continue Atorvastatin at present dose for now. 8. Compared Echo 2014 and 05/2016 and 10/2018 mild increase in velocities but stable. Trivial AI. Will continue to monitor closely. 9. Stable, A. flutter controlled, maintaining SR on Sotalol. Continue current medical therapy and systemic anticoagulation for stroke risk reduction. CHADS2 Vasc score 3-4. -Pt is not sure if she is taking Sotalol or not. She cannot remember. -If she is taking Sotalol advised to stop immediately. I wrote instructions down for pt. 12 lead EKG today for Sotalol toxicity monitoring revealed SB 55 bpm new LBBB QRS 150msec QTc 482msec although confounded by LBBB. -New LBBB is very concerning complicated by the fact pt is unsure what medications she is taking. Furthermore, given her somewhat vague ongiong sxs of fatigue, SOB, just not feeling as well I am quite concerned about underlying CAD. LV function is stable on recent Echo. Given new LBBB and fatigue, SOB will need to repeat stress test Lexiscan to assess for myocardial ischemia. -LHC 2001 with minimal luminal irregularities. Last stress test 2013 no ischemia. Over 50% of this visit counseling mechanical aortic valve, HTN, lipids, medications, lifestyle modification. Follow up in the office in 1 month or sooner as needed. Thank you for allowing me the privilege of participating in the care this very pleasant patient. Please do not hesitate to contact me with any additional questions or concerns. Dilma Paredes MD, FAC documented in this encounter Plan of Treatment Not on file documented as of this encounter Procedures Procedure Name Priority Date/Time Associated Diagnosis Comments ECG 12-LEAD Routine 12/08/2018 Paroxysmal atrial flutter (CMS/HCC) Encounter for monitoring sotalol therapy documented in this encounter Results * NM MPI SPECT (Rest and/or Stress) Multiple Studies (12/13/2018 10:13 AM CDT) Anatomical Region Laterality Modality Body N/A Nuclear Medicine 12/13/2018 9:55 AM CDT Narrative 12/14/2018 12:48 PM CDT [facility] [address] [facility] [address], [place] [address] [address] [facility] [address], [place] [address] P:[phone] P:[phone] MPI Imaging Report Patient Name: ANA MARIA BOBO A : 1945 Study Date: 12/13/2018 9:55:38 AM Gender: F Tech: [facility] Location: [facility] Ref.Provider: JOYCE PAREDES Height(Cm): 162.6 BSA: Weight(Kg): 80.7 BMI: 30.52Order Provider: JOYCE PAREDES Physician: Referring Physician: Dr. Holder. HCG [...] OR. Negative EKG portion of stress test. Electronically Signed By: Christiane Carrera MD, [facility] 2018-12-13 18:20:07 CDT Electronically Signed By: Khadra Hutchins DO, FACC, NADINE, BRENDAN 2018-12-14 12:48:31 CDT Procedure Note Khadra Hutchins DO - 12/14/2018 [facility] [facility] [address], [place] [address] [address] [facility] [address] [address] P:[phone] P:[phone] MPI Imaging Report Patient Name: ANA MARIA BOBO APajoepaco ID: [id number] : [id number] Date: 12/13/2018 9:55:38 AM Gender: FAccession #: [id number] [facility] Ref.Provider: Ramón PAREDESight(Cm): 162.6 BSA: Weight(Kg): 80.7 BMI: 30.52Order Provider: JOYCE PAREDES Physician: Referring Physician: Dr. Holder. HCG [...] OR. Negative EKG portion of stress test. Electronically Signed By: Christiane Carrera MD, [facility] 2018-12-13 18:20:07 CDT Electronically Signed By: Khadra Hutchins DO, [facility], FASE, FASNC 2018-12-14 12:48:31 CDT Joyce Paredes MD IMG NM PROCEDURES Final Result * ECG 12 lead (12/08/2018) us Joyce Praedes MD ECG ORDERABLES Final Re sult documented in this encounter Visit Diagnoses Diagnosis Hypertensive heart disease with chronic diastolic congestive heart failure (CMS/HCC) (HCC)- Primary Dyspnea on exertion Other dyspnea and respiratory abnormality Paroxysmal atrial flutter (CMS/HCC) (HCC) H/O mechanical aortic valve replacement Encounter for monitoring sotalol therapy Dyslipidemia associated with type 2 diabetes mellitus (HCC) Chronic anticoagulation Encounter for long-term (current) use of anticoagulants Dizziness Dizziness and giddiness VAZQUEZ on CPAP LBBB (left bundle branch block) Other left bundle branch block Hypertensive heart disease with chronic diastolic congestive heart failure (CMS/HCC) (HCC) Dyspnea on exertion Other dyspnea and respiratory abnormality Paroxysmal atrial flutter (CMS/HCC) (HCC) Dyslipidemia associated with type 2 diabetes mellitus (HCC) LBBB (left bundle branch block) Other left bundle branch block documented in this encounter Discontinued Medications Medication Sig Discontinue Reason Start Date End Da te sotalol (BETAPACE) 80 mg tablet Duplicate order 06/18/2018 12/08/2018 meclizine (ANTIVERT) 25 mg tablet take 1 tablet by oral route 3 times every day as needed Therapy completed 07/16/2015 12/08/[address] (PROTONIX) 40 mg EC tablet take 1 tablet by oral route every day Therapy completed 09/12/2014 12/08/2018 pioglitazone (ACTOS) 15 mg tablet take 1 tablet (15MG) by oral route every day Therapy completed 03/19/2011 12/08/2018 tiZANidine (ZANAFLEX) 2 mg tablet Take 2 mg by mouth every 8 (eight) hours as needed for muscle spasms. 12/08/2018 documented as of this encounter Care Teams Audit Clerk Relationship Specialty Start Date End Date Hong Holder MD [address] [facility] [address] [place] [address] PCP - General 06/06/16 01/11/20 documented as of this encounter
--- OUTSIDE RECORDS SUMMARY | 2024-03-15 01:57 | XMS_ITS | Encounter Summary ---
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
--- OUTSIDE RECORDS SUMMARY | 2024-03-15 01:57 | XMS_ITS | Encounter Summary ---
Author Organization 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
--- OUTSIDE RECORDS SUMMARY | 2024-03-15 01:57 | XMS_ITS | Encounter Summary ---
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
--- OUTSIDE RECORDS SUMMARY | 2024-03-15 01:57 | XMS_ITS | Encounter Summary ---
Author Organization [facility] Address [address] [place] [address] Care Team Providers Care Endoscopy Registered Nurse Name Role Phone Hong Holder MD Primary Care Provider [phone] Reason for Visit * Reason Comments Follow-up 1 mo follow up on a- flutter, amber * Cardiology (Routine) - Closed Specialty Diagnoses / Procedures Referred By Contac t Referred To Contact Cardiology Diagnoses Other chest pain Hong Holder MD Phone: tel: fax: [facility] Cardiology [address] [facility] [address] [place] [address] Phone: tel: fax: Referral ID Status Reason Start Date Expiration Date Visits Re quested Visits Authorized [id number] Closed 10/18/2018 08/11/2019 10 10 Encounter Details Date Type Department Care Team (Late st Contact Info) Description 06/30/2019 10:00 AM CDT Telemedicine [facility] Cardiology [address] [facility] [address] [address] Ana Maria Hess NP [address] [facility] [address] [place] [id number] Hypertensive heart disease with congestive heart failure, unspecified heart failure type (CMS/HCC) (Primary Dx); Paroxysmal atrial flutter (CMS/HCC); Bradycardia; H/O mechanical aortic valve replacement; Chronic anticoagulation Social History Tobacco Use Types Packs/Day Years Used Date Smoking Tobacco: Never Smokeless Tobacco: Never Alcohol Use Standard Drinks/Week Comments No 0 (1 standard drink = 0.6 oz pur e alcohol) Comments Unknown Sex and Gender Information Value Date Recorded Sex Assigned at Not on file Legal Sex Female 6:10 AM 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 No / Unsure 06/07/2019 2:38 PM CDT documented as of this encounter Last Filed Vital Signs Vital Sign Reading Time Taken Comments Blood Pressure 138/63 06/30/2019 9:48 AM CDT Pulse 53 06/30/2019 9:48 AM CDT Temperature - - Respiratory Rate - - Oxygen Saturation - - Inhaled Oxygen Concentration - - Weight 78.5 kg (173 lb) 06/30/2019 9:48 AM CDT Height 162.6 cm (5' 4 ) 06/30/2019 9:48 AM CDT Body Mass Index 29.7 06/30/2019 9:48 AM CDT documented in this encounter Progress Notes * Ana Maria Hess NP - 06/30/2019 10:00 AM CDT [facility] Date of Visit: 06/30/2019 Patient ID: Radha Huynh 1945 This was a telemedicine visit with Radha Huynh alone which took place via Telephone. During the visit, I was located at [facility] in [place] and the patient was located at her home. The session started at 0951 and ended at 1007 (there was an additional 3 minutes of chart review and an additional 3 minutes of documentation). The patient has been informed that the visit may not be secure and acknowledged the information. Our staff explained the option of participating in a [...] after her medications were changed because of bradycardiaand hypertension. History of Present Illness: Radha Huynh is [...] Going to see PCP. 08/12/17 Admitted to [facility] in June due to SOB found to be in A.Fib and started on Diltiazem and Metoprolol. Was discharged still with TORRES then sxs continued to worsen and readmitted to [place] in July. She was started on Sotalol [...] little. She still has not seen a Lockstitch Zipper Setter. Not using CPAP for a year. She later admits she is only taking maybe 4 of her medicines but she is not sure if she is taking Sotalol. New LBBB was noted, sopatient returned on 12/13/18 for stress test which was negative for ischemia. 02/08/19 CAT visit: Patient presented to [facility] on 12/17/18 complaint of shortness [...] falls or syncope. She denies chest pain, TORERS or PND. She is not having any [...] now is still in her night gown. Records that I personally reviewed on the day of this visit include: (the interpretation is outlined in the HPI above) 06/14/2019 televisit note from myself I have also reviewed: allergies, current medications, past family history, past medical history, past social history, past surgical history and problem list Review of Systems Constitution: Negative for fever and weight gain. Cardiovascular: Negative for chest pain, dyspnea on exertion, leg swelling, near-syncope, orthopnea, paroxysmal nocturnal dyspnea and syncope. Respiratory: Negative for cough, shortness of breath and sleep disturbances due to breathing. Hematologic/Lymphatic: Negative for bleeding problem. Does not bruise/bleed easily. Neurological: Positive for loss of balance. Negative for dizziness and light-headedness. Vital Signs: BP 138/63 Pulse 53 Ht 162.6 cm (5' 4 ) Wt [...] for this visit: Hypertensive heart disease with congestive heart failure, unspecified heart failure type (CMS/HCC) (Primary) Paroxysmal atrial flutter (CMS/HCC) Bradycardia H/O mechanical aortic valve replacement Chronic anticoagulation Plan/Recommendations: At her last televisit 2 weeks ago, blood pressure was elevated so I instructed her to restart lisinopril at 2.5 mg daily. She has left her blood pressure machine in her car and is not able to go out and get it right now, so she is going to call our office back later today and give me her recent blood pressure readings. She felt better with the reduction in her metoprolol and furosemide in late April. However, her heart rate remained low, so last month I instructed her to further reduce the metoprolol. Now her heart rate has stabilized to 50-60 bpm so I instructed her to remain on the very low-dose metoprolol tartrate 6.25 mg b.i.d. She is on anticoagulation for her history of aortic valve replacement and also her atrial arrhythmia. She inadvertently was not taking her warfarin. Her PCP is following her INR and has given her directions on her dosing. She reports that her PCP is leaving practice but she is getting her care transfer to another PCP. I told her we could assume taking over her INR checks if needed, and we could al so send her information on a home INR machine. She will let us know if she is interested in this farooq later time. We will keep her previously scheduled routine follow-up to see Dr. Paredes in early September. Dependingon her more recent blood pressure readings, I may or may not have another televisit follow-up with her if her lisinopril needs up titrated. 1558 Addendum: I called that patient back, and she reported yesterday's vital signs were BP 138/63,heart rate 53. I advised her to keep her medication doses the same. She verbalized understanding. Ana Maria Hess, ANP- Nurse Practitioner with [facility] This note is dictated and transcribed using Bi[employer] Direct Software. Pulley Mortiser Operator variancesmay occur. Despite proofreading, typographical errors may occur. documented in this encounter Plan of Treatment Not on file documented as of this encounter Visit Diagnoses Diagnosis Hypertensive heart disease with congestive heart failure, unspecified heart failure type (HCC)- Primary Paroxysmal atrial flutter (CMS/HCC) (HCC) Bradycardia Other specified cardiac dysrhythmias H/O mechanical aortic valve replacement Chronic anticoagulation Encounter for long-term (current) use of anticoagulants documented in this encounter Care Teams Endoscopy Registered Nurse Relationship Specialty Start Date End Date Hong Holder MD [address] [address] PCP - General 06/06/16 01/11/20 documented as of this encounter
--- OUTSIDE RECORDS SUMMARY | 2024-03-15 01:57 | XMS_ITS | Encounter Summary ---
Author Organization [facility] Care Team Providers Care Diesel Powerplant Supervisor Name Role Phone Hong Holder MD Primary Care Provider [phone] Encounter Details Date Type Department Care Team (Latest Contact Info) Description 12/08/2018 Travel Social History Tobacco Use Types Packs/Day Years Used Date Smoking Tobacco: Never Smokeless Tobacco: Never Alcohol Use Standard Drinks/Week Comments No 0 (1 standard drink = 0.6 oz pur e alcohol) Comments Unknown Sex and Gender Information Value Date Recorded Sex Assigned at Not on file Legal Sex Female 6:10 AM VP RESPIRATORY Gender Identity Not on file Sexual Orientation Not on file documented as of this encounter Plan of Treatment Not on file documented as of this encounter Visit Diagnoses Not on filedocumented in this encounter Care Teams Diesel Powerplant Supervisor Relationship Specialty Start Date End Date Hong Holder MD [address] [place] [address] PCP - General 06/06/16 01/11/20 documented as of this encounter
--- OUTSIDE RECORDS SUMMARY | 2024-03-15 01:57 | XMS_ITS | Encounter Summary ---
Author Organization [facility] Address [address] [facility] [address] [place] [address] Care Team Providers Care Tube Turner Name Role Phone Juan Pablo Dominguez MD Primary Care Provider Reason for Visit * Reason Onset Date Comments Informed Granddaughter of Orders Placed 01/12/20 Encounter Details Date Type Department Care Team (Late st Contact Info) Description 01/12/2020 Telephone [facility] Cardiology [address] [facility] [address] [place] [address] Diana Shi MA Informed Granddaughter of Orders Placed Social History Tobacco Use Types Packs/Day Years Used Date Smoking Tobacco: Never Smokeless Tobacco: Never Alcohol Use Standard Drinks/Week Comments No 0 (1 standard drink = 0.6 oz pur e alcohol) Comments Unknown Sex and Gender Information Value Date Recorded Sex Assigned at Not on file Legal Sex Female 6:10 AM 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 Notified her of all the orders placed and to stop Metoprolol. She was already aware amiodarone was decreased to 100 mg. L INSPECTOR * Telephone Encounter - Galilea Dowell - 01/13/2020 3:53 PM CST Pt's grand daughter called back to speak with Jadyn SHANKAR. L INSPECTOR * Telephone Encounter - Shanel Rosario - 01/13/2020 3:38 PM CST Barbie Bethea requesting a call to discuss pt medication... Benita Salamancanifer... [phone] L INSPECTOR * Telephone Encounter - Sofya Coombs MA - 01/12/2020 4:46 PM CST Will forward to Christelle to follow up with the patient L INSPECTOR * Telephone Encounter - Galilea Dowell - 01/12/2020 3:36 PM CST Pt's grand daughter called back to speak with Jadyn SHANKAR to discuss pt medication list. L INSPECTOR * Telephone Encounter - Diana Shi MA - 01/12/2020 3:[address] Paredes would like pt to stop metoprolol after reviewing EKG. HR too low. Shanel, Can you dbl check the number you wrote down for Neema, that is not a working number =( L INSPECTOR * Telephone Encounter - Shanel Rosario - 01/12/2020 2:35 PM CST Pt called to give her grandanshul's Neema telephone Neema [phone] L INSPECTOR * Telephone Encounter - Diana Shi MA - 01/12/2020 2:25 PM CST Pt did not have a current med list at her appt today and was unsure of what she is taking. States her granddaughter handles her medications and will have her call the office with list of meds. Dr. Paredes requested that I inform granddaughter: -Amiodarone decreased to 100mg (1/2 tablet) -Chest xray ordered -PFT ordered - 2 month f/u (needs scheduled) Spoke with pt and she gave me a verbal okay to speak with granddaughter and [facility] L INSPECTOR documented in this encounter Plan of Treatment Not on file documented as of this encounter Visit Diagnoses Not on filedocumented in this encounter Discontinued Medications Medication Sig Discontinue Reason Start Date End Da te cholecalciferol (VITAMIN D-3) 1,000 unit Take 1,000 Units by mouth daily. Therapy completed 01/13/2020 rOPINIRole (REQUIP) 0.25 mg tablet Take 0.25 mg by mouth nightly Therapy completed 01/13/2020 traZODone (DESYREL) 50 mg tablet 50 mg daily Therapy completed 01/13/2020 metFORMIN (GLUCOPHAGE) 1,000 mg tablet take 1 tablet (1000MG) by oral route 2 times every day with morning and evening meals Therapy completed 03/19/2011 01/13/2020 documented as of this encounter Care Teams Tube Turner Relationship Specialty Start Date End Date Juan Pablo Dominguez MD [address] [address] PCP - General Family Medicine 01/12/20 08/06/20 documented as of this encounter
--- OUTSIDE RECORDS SUMMARY | 2024-03-15 01:57 | XMS_ITS | Encounter Summary ---
Author Organization [facility] Address [address] [place] [address] Care Team Providers Care Digitizer Operator Name Role Phone Miscellaneous, Not In File Primary Care Provider Unavailable Reason for Visit * Reason Onset Date Comments Admit Notification 08/14/2020 Encounter Details Date Type Department Care Team (Late st Contact Info) Description 08/14/2020 Telephone [facility] Cardiology [address] [facility] [address] [facility] [address] [place] [address] Christiane Carrera MD [address] [place] [address] Admit Notification Social History Tobacco Use Types Packs/Day Years [...] on file 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 documented in this encounter Plan of Treatment Not on file documented as of this encounter Visit Diagnoses Not on filedocumented in this encounter Care Teams Digitizer Operator Relationship Specialty Start Date End Date Miscellaneous, Not In File PCP - General 08/07/2003/10/ 2 documented as of this encounter
--- OUTSIDE RECORDS SUMMARY | 2024-03-15 01:57 | XMS_ITS | Encounter Summary ---
Author Organization [facility] Address [address] [place] [address] Care Team Providers Care Teacher Of The Visually Impaired Name Role Phone Miscellaneous, Not In File Primary Care Provider Unavailable Encounter Details Date Type Department Care Team (Latest Contact Info) Description 10/03/2020 Anticoagulation Visit [facility] Cardiology [address] [place] [address] Natalee Michaels, RN History of [...] on file Legal Sex Female 6:10 AM BACON DE RINDER Gender Identity Not on file Sexual Orientation Not on file documented as of this encounter Plan of Treatment Not on file documented as of this encounter Visit Diagnoses Diagnosis History of mechanical aortic valve replacement- Primary Paroxysmal atrial flutter (CMS/HCC) (HCC) documented in this encounter Care Teams Teacher Of The Visually Impaired Relationship Specialty Start Date End Date Miscellaneous, Not In File PCP - General 08/07/2003/10/ 2 documented as of this encounter
--- OUTSIDE RECORDS SUMMARY | 2024-03-15 01:57 | XMS_ITS | Encounter Summary ---
Author Organization [facility] Address [address] [facility] [address] [place] [address] Care Team Providers Care Hand Woven Carpet And Rug Mender Name Role Phone Juan Pablo Dominguez MD Primary Care Provider Reason for Visit * Consultation (Routine) - Canceled Specialty Diagnoses / Procedures Referred By Contac t Referred To Contact Cardiology Diagnoses Coronary atherosclerosis of tolowa dee-ni' coronary artery Christiane Carrera MD Phone: tel: fax: [facility] Cardiology [address] [address] Phone: tel: fax: Referral ID Status Reason Start Date Expiration Date Visits Requested Visits Authorized [id number] Canceled Specialty Services Required 03/08/2020 03/08/2021 6 6 Encounter Details Date Type Department Care Team (Late st Contact Info) Description 04/02/2020 2:30 PM HEATING AND BLENDING SUPERVISOR Telemedicine [facility] Cardiology [address] [address] Ana Maria Hess NP [address] [facility] [address] [address] Elevated blood pressure reading with diagnosis of hypertension (Primary Dx) Social History Tobacco Use Types Packs/Day Years Used Date Smoking Tobacco: Never Smokeless Tobacco: Never Alcohol Use Standard Drinks/Week Comments No 0 (1 standard drink = 0.6 oz pur e alcohol) Comments Unknown Sex and Gender Information Value Date Recorded Sex Assigned at Not on file Legal Sex Female 6:10 AM HEATING AND BLENDING SUPERVISOR Gender Identity Not on file Sexual Orientation Not on file documented as of this encounter Last Filed Vital Signs Vital Sign Reading Time Taken Comments Blood Pressure 212/62 04/02/2020 2:48 PM HEATING AND BLENDING SUPERVISOR Pulse 68 04/02/2020 2:48 PM HEATING AND BLENDING SUPERVISOR Temperature - - Respiratory Rate - - Oxygen Saturation - - Inhaled Oxygen Concentration - - Weight 82.6 kg (182 lb) 04/02/2020 2:48 PM HEATING AND BLENDING SUPERVISOR Height 162.6 cm (5' 4 ) 04/02/2020 2:48 PM HEATING AND BLENDING SUPERVISOR Body Mass Index 31.24 04/02/2020 2:48 PM HEATING AND BLENDING SUPERVISOR documented in this encounter Progress Notes * Ana Maria Hess NP - 04/02/2020 2:30 PM CST Images from the original note were not included. [facility] Cardiology [address] [place] [address] Date of Visit: 04/02/2020 Patient ID: Radha Huynh 1945 This was a telemedicine visit with Radha Huynh alone which took place via Telephone. During the visit, I was located in the office and the patient was located at home in the [facility]. The patient visit started at 1509 and ended at 1522. There was another telephone call to patient's granddaughter Neema Pierre, who assists with patient's coordination of care. This call started at 1641 and ended at 1648. The patient has been informed that the visit may not be secure and acknowledged the information. Our staff explained the option of participating in a telephone or video visit during the COVID-19 public health emergency to the patient. After being given an opportunity to ask questions about and discuss this type of visit, the patient verbally consented to proceeding with the telephone/video visit. The patient understands that this service replaces an office visit and they may be billed and/orresponsible for any applicable copayments. Ana Maria Hess NP Chief Complaint: Radha Huynh is a 74 y.o. female who is an established patient of Dr. Paredes with a history of mechanical aortic valve, CAD, PAF on amiodarone and warfarin, having a 2 month follow-up encounter. She missed her appointment that was scheduled 2 weeks ago and requested a telephone encounter in place of an office visit. History of Present Illness: Radha Huynh is [...] Going to see PCP. 08/12/17 Admitted to [facility] in June due to SOB found to be in A.Fib and started on Diltiazem and Metoprolol. Was discharged still with TORRES then sxs continued to worsen and readmitted to [facility] in July. She was started on Sotalol [...] little. She still has not seen a [employer] Founder. Not using CPAP for a year. She later admits she is only taking maybe 4 of her medicines but she is not sure if she is taking Sotalol. 02/08/19 CAT visit: Patient presented to [facility] on 12/17/18 complaint of shortness [...] this is becoming a little more problematic. Records that I personally reviewed on the day of this visit include: (the interpretation is outlined in the HPI above) 01/12/[address] Paredes's and subsequent telephone notes in epic, PFT report. I have also reviewed: allergies, current medications, past family history, past medical history, past social history, past surgical history and problem list Review of Systems Constitution: Negative for weight gain. Eyes: Positive for blurred vision. Cardiovascular: Negative for chest pain, near-syncope, palpitations and syncope. Respiratory: Negative for shortness of breath. Musculoskeletal: Positive for neck pain. Neurological: Positive for headaches. Vital Signs: BP (!) 212/62 (BP Location: Left arm, Patient Position: Sitting) Pulse 68 Ht 162.6 cm (5' 4 ) Wt 82.6 kg (182 lb) BMI 31.24 kg/m?? Physical Exam The patient sounded in no distress over the phone, asked appropriate questions, and answered questions appropriately. Allergies Allergen Reactions ??? Bacitracin ??? Benzalkonium [...] BEDTIME, Disp: 90 tablet, Rfl: 2 ??? fluticasone (FLONASE) 50 mcg/actuation nasal spray, [...] inhaler, , Disp: , Rfl: 11 ??? venlafaxine [...] mg ), Disp: , Rfl: 0 ??? DOXYCYCLINE 100 mg tablet, Take 100 mg by mouth 2 (two) times a day, Disp: , Rfl: 0 ??? ferrous sulfate 325 mg (65 mg of elemental iron) tablet, Take 65 mg of elemental iron by mouth daily , Disp: , Rfl: ??? warfarin (COUMADIN) 2 mg tablet, take [...] Diagnoses and all orders for this visit: Elevated blood pressure reading with diagnosis of hypertension (Primary) Plan/Recommendations: Her home blood pressure reading is extremely elevated. She complains of headache but no other concerning symptoms. It seems she is compliant with her medication because her family organizes her pill boxes. I also spoke with her family and I asked they give her lisinopril 5 mg additionally tonight. Tomorrow morning take lisinopril 5 mg, wait least an hour, recheck blood pressure, and call the office to report the blood pressure reading. I also asked that another family member check their blood pressure on the machine to make sure it is accurate. Once I get the information on tomorrow's blood pressure reading, I will determine her follow-up. 04/05/2020 addendum: I called the patient to follow-up on her blood pressure because I did not hearfrom her. She said her granddaughter checked the blood pressure machine and thinks it was giving aninaccurate reading. She is going to get a new machine. I asked her to call the office next week andreport some of her blood pressure readings once she gets the new machine. MAI Guzman- Nurse Practitioner with [facility] Card[facility] This note is dictated and transcribed using [employer] Direct Software. Staple Cutter variancesmay occur. Despite proofreading, typographical errors may occur. ING AND BLENDING SUPERVISOR ING AND BLENDING SUPERVISOR documented in this encounter Plan of Treatment Not on file documented as of this encounter Visit Diagnoses Diagnosis Elevated blood pressure reading with diagnosis of hypertension- Primary documented in this encounter Discontinued Medications Medication Sig Discontinue Reason Start Date End Da te cyanocobalamin (Vitamin B-12) 1,000 mcg tabletIndications:Prevent ion of Vitamin B12 Deficiency Take 1,000 mcg by mouth daily Therapy completed 04/02/2020 documented as of this encounter Care Teams Hand Woven Carpet And Rug Mender Relationship Specialty Start Date End Date Juan Pablo Dominguez MD [address] [facility] [address] [place] [address] PCP - General Family Medicine 01/12/20 08/06/20 documented as of this encounter
--- OUTSIDE RECORDS SUMMARY | 2024-03-15 01:57 | XMS_ITS | Encounter Summary ---
Author Organization [facility] Facility Care Team Providers Care Rack Puncher Name Role Phone Hong Holder MD Primary Care Provider [phone] [phone] Encounter Details Date Type Department Care Team (Latest Contact Info) Description 10/19/2018 Travel Social History Tobacco Use Types Packs/Day Years Used Date Smoking Tobacco: Never Smokeless Tobacco: Never Alcohol Use Standard Drinks/Week Comments No 0 (1 standard drink = 0.6 oz pur e alcohol) Comments Unknown Sex and Gender Information Value Date Recorded Sex Assigned at Not on file Legal Sex Female 6:10 AM AUTOMATIC OVEN OPERATOR Gender Identity Not on file Sexual Orientation Not on file documented as of this encounter Plan of Treatment Not on file documented as of this encounter Visit Diagnoses Not on filedocumented in this encounter Care Teams Rack Puncher Relationship Specialty Start Date End Date Hong Holder MD [address] [place] [address] PCP - General 06/06/16 01/11/20 documented as of this encounter
--- OUTSIDE RECORDS SUMMARY | 2024-03-15 01:57 | XMS_ITS | Encounter Summary ---
Author Organization 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 No / Unsure 06/06/2019 4:30 PM CDT documented as of this encounter Plan of Treatment Not on file documented as of this encounter Visit Diagnoses Not on filedocumented in this encounter Care Teams Process Specialist Relationship Specialty Start Date End Date Hong Holder MD [address] [place] [address] PCP - General 06/06/16 01/11/20 documented as of this encounter
--- OUTSIDE RECORDS SUMMARY | 2024-03-15 01:57 | XMS_ITS | Encounter Summary ---
Author Organization [facility] Address [address] [facility] [address] [place] [address] Care Team Providers Care Routing Clerk Name Role Phone Hong Holder MD Primary Care Provider [phone] Encounter Details Date Type Department Care Team (Late st Contact Info) Description 01/13/2019 Orders Only [facility] Cardiology [address] [place] [address] Christiane Carrera MD [address] [facility] [[email or web address] [address] [place] [address] Social History Tobacco Use Types Packs/Day Years Used Date Smoking Tobacco: Never Smokeless Tobacco: Never Alcohol Use Standard Drinks/Week Comments No 0 (1 standard drink = 0.6 oz pur e alcohol) Comments Unknown Sex and Gender Information Value Date Recorded Sex Assigned at Not on file 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 Female 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 Gender Identity Not on file Sexual Orientation Not on file documented as of this encounter Plan of Treatment Not on file documented as of this encounter Procedures Procedure Name Priority Date/Time Associated Diagnosis Comments CARDIOLOGY DOCUMENT SCAN Routine 01/13/2019 documented in this encounter Results * SCAN - CARDIOLOGY (01/13/2019) Anatomical Region Laterality Modality Other Christiane Carrera MD CV CARDIAC SERVICES PROCEDU RES Final Result documented in this encounter Visit Diagnoses Not on filedocumented in this encounter Care Teams Routing Clerk Relationship Specialty Start Date End Date Hong Holder MD [address] [place] [address] PCP - General 06/06/16 01/11/20 documented as of this encounter
--- OUTSIDE RECORDS SUMMARY | 2024-03-15 01:57 | XMS_ITS | Encounter Summary ---
Author Organization [facility] Address [address] [facility] [address] [place] [address] Care Team Providers Care Analyst Competitive Intelligence Name Role Phone Miscellaneous, Not In File Primary Care Provider Unavailable Encounter Details Date Type Department Care Team (Late st Contact Info) Description 10/02/2020 Telephone [facility] Cardiology [address] [facility] [address] [place] [address] Maurice Paredes MD [address] [facility] [address] [place] [address] Social History Tobacco Use Types [...] on file 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 Advisedpt to get INR checked today if possible; pt will go today. Informed pt that order is in for [facility]. She states this will work. * Telephone Encounter - Cameron Lee - 10/02/2020 12:28 PM CDT Pt wanting clarity on when and where she should go for her next INR check,please advise.Thank you Contact;[phone] documented in this encounter Plan of Treatment Not on file documented as of this encounter Visit Diagnoses Not on filedocumented in this encounter Care Teams Analyst Competitive Intelligence Relationship Specialty Start Date End Date Miscellaneous, Not In File PCP - General 08/07/2003/10/ 2 documented as of this encounter
--- OUTSIDE RECORDS SUMMARY | 2024-03-15 01:57 | XMS_ITS | Encounter Summary ---
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 Gender Identity Not on file Sexual Orientation Not on file documented as of this encounter Plan of Treatment Not on file documented as of this encounter Procedures Procedure Name Priority Date/Time Associated Diagnosis Comments PROTIME-INR Routine 08/30/2020 documented in this encounter Results * (ABNORMAL) Protime-INR (08/30/2020) INR 2.70(A) 0.9 - 1.1 [facility] Blood specimen (specimen) us Historical Provider LAB BLOOD ORDERABLES Christen farooq Result [facility] documented in this encounter Visit Diagnoses Diagnosis History of mechanical aortic valve replacement- Primary Paroxysmal atrial flutter (CMS/HCC) (HCC) documented in this encounter Care Teams Phone Technician Relationship Specialty Start Date End Date Miscellaneous, Not In File PCP - General 08/07/20 2 documented as of this encounter
--- OUTSIDE RECORDS SUMMARY | 2024-03-15 01:57 | XMS_ITS | Encounter Summary ---
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
--- OUTSIDE RECORDS SUMMARY | 2024-03-15 01:57 | XMS_ITS | Encounter Summary ---
Author Organization [facility] Address [address] [facility] [address] [place] [address] Care Team Providers Care Stockfeed Miller Name Role Phone Juan Pablo Dominguez MD Primary Care Provider Reason for Referral * Diagnostic Imaging (Routine) - Closed Specialty Diagnoses / Procedures Referred By Ian malagon Referred To Contact Diagnoses Dyspnea on exertion 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 toxicity with mcc use Procedures XR Chest Pa Lateral 2 Views Maurice Paredes MD Phone: tel: fax: External Order Referral ID Status Reason Start Date Expiration Date Visits Re quested Visits Authorized [id number] Closed 01/12/2020 02/10/2021 1 1 TAL CIRCUIT DESIGNER Reason for Visit * Reason Comments Atrial Flutter Bradycardia . 6 consuelo h f/u Shortness of Breath * Consultation (Routine) - Canceled Specialty Diagnoses / Procedures Referred By Ian malagon Referred To Contact Cardiology Diagnoses Atrial flutter, unspecified type (HCC) Essential hypertension, malignant Hong Holder MD [address] [facility] [address] [place] [address] Phone: tel: fax: [facility] Cardiology [address] [place] [address] Phone: tel: fax: Referral ID Status Reason Start Date Expiration Date Visits Requested Visits Authorized [id number] Canceled Specialty Services Required 09/02/2019 03/08/2020 1 1 Encounter Details Date Type Department Care Team (Latest Contact Info) Description 01/12/2020 9:15 AM DIGITAL CIRCUIT DESIGNER Office Visit [facility] Cardiology [address] [place] [address] Maurice Paredes MD [address] [facility] [address] [place] [address] Coronary artery disease involving kenaitze coronary artery of kenaitze heart without angina pectoris (Primary Dx); Paroxysmal atrial flutter (CMS/HCC); Dyspnea on exertion; 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; LBBB (left bundle branch block); Bradycardia; H/O mechanical aortic valve replacement; Dyslipidemia associated with type 2 diabetes mellitus (CMS/HCC); VAZQUEZ on CPAP; Chronic anticoagulation Social History Tobacco Use Types Packs/Day Years Used Date Smoking Tobacco: Never Smokeless Tobacco: Never Alcohol Use Standard Drinks/Week Comments No 0 (1 standard drink = 0.6 oz pur e alcohol) Comments Unknown Sex and Gender Information Value Date Recorded Sex Assigned at Not on file Legal Sex Female 6:10 AM DIGITAL CIRCUIT DESIGNER Gender Identity Not on file Sexual Orientation Not on file documented as of this encounter Last Filed Vital Signs Vital Sign Reading Time Taken Comments Blood Pressure 124/58 01/12/2020 9:32 AM DIGITAL CIRCUIT DESIGNER Pulse 54 01/12/2020 9:32 AM DIGITAL CIRCUIT DESIGNER Temperature - - Respiratory Rate - - Oxygen Saturation 98% 01/12/2020 9:32 AM DIGITAL CIRCUIT DESIGNER Inhaled Oxygen Concentration - - Weight 83.7 kg (184 lb 9.6 oz) 01/12/2020 9:32 A M DIGITAL CIRCUIT DESIGNER Height 162.6 cm (5' 4 ) 01/12/2020 9:32 AM DIGITAL CIRCUIT DESIGNER Body Mass Index 31.69 01/12/2020 9:32 AM DIGITAL CIRCUIT DESIGNER documented in this encounter Ordered Prescriptions Prescription Sig Dispense Quantity Refills Last Filled Start Date End Date amiodarone (PACERONE) 200 mg tablet Take 0.5 tablets (100 mg total) by mouth daily 45 tablet 3 01/12/2020 2 documented in this encounter Progress Notes * Maurice Paredes MD - 01/12/2020 9:15 AM CST [facility] DATE OF VISIT: 01/12/2020 CHIEF COMPLAINT Chief Complaint Patient presents with ??? Atrial Flutter Bradycardia . 6 month f/u ??? Shortness of Breath HPI Radha Huynh is a 74 y.o. female [...] Going to see PCP. 08/12/17 Admitted to [facility] in June due to SOB found to be in A.Fib and started on Diltiazem and Metoprolol. Was discharged still with TORRES then sxs continued to worsen and readmitted to [facility] in July. She was started on Sotalol [...] little. She still has not seen a Regulatory Internship. Not using CPAP for a year. She later admits she is only taking maybe 4 of her medicines but she is not sure if she is taking Sotalol. 02/08/19 CAT visit: Patient presented to [facility] on 12/17/18 complaint of shortness of [...] edema of late. No CP or palps. MEDICAL HISTORY Past Medical History: Diagnosis Date [...] : Myocardial Infarction MEDICATIONS HOME MEDICATIONS : amiodarone (PACERONE) 200 mg tablet atorvastatin (LIPITOR) 10 mg tablet cholecalciferol (VITAMIN D-3) 1,000 unit cyanocobalamin (Vitamin B-12) 1,000 mcg tablet DOXYCYCLINE 100 mg tablet ferrous sulfate 325 mg (65 mg of elemental iron) tablet fluticasone (FLONASE) 50 mcg/actuation nasal spray furosemide (LASIX) 40 mg tablet gabapentin (NEURONTIN) 300 mg capsule HYDROcodone-acetaminophen (LORCET 10-650) 10-650 mg per tablet lisinopril (PRINIVIL,ZESTRIL) 2.5 mg tablet metFORMIN (GLUCOPHAGE) 1,000 mg tablet omeprazole (PriLOSEC) 20 mg capsule PROAIR HFA 90 mcg/actuation inhaler rOPINIRole (REQUIP) 0.25 mg tablet traZODone (DESYREL) 50 mg tablet venlafaxine 150 mg tablet extended release 24hr 24 hr tablet warfarin (COUMADIN) 10 mg tablet warfarin (COUMADIN) 2 mg tablet amiodarone (PACERONE) 200 mg tablet metoprolol tartrate (LOPRESSOR) 25 mg immediate release tablet ALLERGIES Allergies Allergen Reactions ??? Bacitracin ??? Benzalkonium ??? Gramicidin D ??? Hydrocortisone ??? Neomycin ??? Polymyxin B ??? Skin Cleanser REVIEW OF SYSTEMS Review of Systems Constitution: Positive for malaise/fatigue and weight gain. Negative [...] for environmental allergies. PHYSICAL EXAM Vitals BP 124/58 (BP Location: Left arm, Patient Position: Sitting) Pulse 54 Ht 162.6 cm (5' 4 ) Wt 83.7 kg (184 lb 9.6 oz) SpO2 98% BMI 31.69 kg/m?? Weight: 83.7 kg (184 lb 9.6 oz) Height: 162.6 cm (5' 4 ) Body mass index is 31.69 kg/m??. Physical Exam Constitutional: She is oriented [...] is present with a grade of 2/6. [place] metallic S2 Pulmonary/Chest: Effort normal and breath sounds normal. No respiratory distress. She has no wheezes. She has no rales. She exhibits no tenderness. Healed median sternotomy Diminished breath sounds Abdominal: Soft. Bowel sounds are normal. She exhibits no distension and no mass. There is no abdominal tenderness. There is no rebound and no guarding. obese Musculoskeletal: Normal range of motion. General: No [...] AND OTHER DIAGNOSTIC TESTS Office Visit on 01/12/2020 Component Date Value Ref Range Status ??? Cholesterol, POC 01/12/2020 210 mg/dL Final ??? HDL, POC 01/12/2020 82 mg/dL Final ??? Triglycerides, POC 01/12/2020 146 mg/dL Final ??? LDL, Direct, POC 01/12/2020 99 mg/dL Final ??? Chol/HDL Ratio, POC 01/12/2020 2.6 Final ??? Non-HDL Cholesterol, POC 01/12/2020 128 mg/dL Final ??? Cholesterol Total, POC 01/12/2020 210 mg/dL Final Results for orders placed or performed in visit on 01/12/20 POCT lipid panel Result Value Ref Range Cholesterol, POC 210 mg/dL HDL, POC 82 mg/dL Triglycerides, POC 146 mg/dL LDL, Direct, POC 99 mg/dL Chol/HDL Ratio, POC 2.6 Non-HDL Cholesterol, POC 128 mg/dL Cholesterol Total, POC 210 mg/dL 10/19/2018 2D Echocardiogram: Conclusions: Normal left [...] IA. Negative EKG portion of stress test. Personally reviewed EKG, Echocardiogram, stress test, and bloodwork/lipids and hospital records from [facility] 06/2017 and [facility] 07/2017. ASSESSMENT Diagnoses and all orders for this visit: Coronary artery disease involving kenaitze coronary artery of kenaitze heart without angina pectoris (Primary) - POCT lipid panel Paroxysmal atrial flutter (CMS/HCC) - ECG 12 lead Dyspnea on exertion - Pulmonary Function Test -External; Future - XR Chest Pa Lateral 2 Views; Future 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 toxicity with mcc use - Pulmonary Function Test -External; Future - XR Chest Pa Lateral 2 Views; Future - TSH; Future LBBB (left bundle branch block) Bradycardia - ECG 12 lead H/O mechanical aortic valve replacement Dyslipidemia associated with type 2 diabetes mellitus (CMS/HCC) VAZQUEZ on CPAP Chronic anticoagulation Other orders - amiodarone (PACERONE) 200 mg tablet; Take 0.5 tablets (100 mg total) by mouth daily PLAN/RECOMMENDATIONS 1. BP controlled, improved on repeat check. Monitor BP on routine basis. Call with [...] directed. Monitor for bleeding. Managed by PCP. -go to ER immediately if any falls, bleeding or head injuries. 5. No CHF sxs at present. Compensated. CHF counseling performed. Follow daily weight, less than 2 gdaily sodium intake, medication compliance. Call w/ wt gain >3lb in 24 hrs or worsening edema and/or TORRES. 6. DM managed by PCP. -She has [...] Vasc score 3-4. -Sotalol stopped, Amiodarone started. -Bradycardic, but stable. Stop Metoprolol due to bradycardia. Monitor sxs. -Cotinue Lasix 20 mg daily. Ambulate with extreme caution. Instructions written down for patient. Call with any questions or concerns. -12 lead EKG today personally reviewed sinus bradycardia first-degree AV block LBBB 45 beats per minute WI interval 292 milliseconds QRS 156 milliseconds QT corrected 452 milliseconds 10. Amiodarone toxicity counseling performed. Risks including but not limited to the eyes, thyroid,lungs and need for yearly PFTs, eye exams, CXR, TSH, routine blood work. -Needs CXR, TSH, PFT's, eye exam (she is due) -Reduce Amiodarone to 100mg daily (half 200mg tablet daily) -Concern for tachy-amber and possible need for PPM if symptomatic amber and or tachyarrhythmia. Mayneed to hold Amiodarone if amber persists. -LHC 2001 with minimal luminal irregularities.12/2018 Lexiscan possible old anterior IA EF 62%. Over 50% of this visit counseling mechanical aortic valve, HTN, lipids, medications, lifestyle modification. Follow up in the office in 1 month or sooner as needed. Thank you for allowing me the privilege of participating in the care this very pleasant patient. Please do not hesitate to contact me with any additional questions or concerns. 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 Expected: 01/12/2020, Expires: 01/11/2021 documented as of this encounter Procedures Procedure Name Priority Date/Time Associated Diagnosis Comments POCT LIPID PANEL Routine 01/12/2020 11:2 3 AM DIGITAL CIRCUIT DESIGNER Coronary artery disease involving kenaitze coronary artery of kenaitze heart without angina pectoris ECG 12-LEAD Routine 01/12/2020 Paroxysmal atrial flutter (CMS/HCC) Bradycardia documented in this encounter Results * POCT lipid panel (01/12/2020 11:23 AM DIGITAL CIRCUIT DESIGNER) Cholesterol, POC 210 mg/dL Comment:GLU = 146 HDL, POC 82 mg/dL Triglycerides, POC 146 mg/dL LDL Cholesterol POC 99 mg/dL Chol/HDL Ratio, POC 2.6 Non-HDL Cholesterol, POC 128 mg/dL Cholesterol Total, POC 210 mg/dL Capillary blood 01/12/2020 1 1:23 AM DIGITAL CIRCUIT DESIGNER us Maurice Paredes MD POINT OF CARE TEST ORDER AIXA Final Result * ECG 12 lead (01/12/2020) us Maurice Paredes MD ECG ORDERABLES Final Re sult documented in this encounter Visit Diagnoses Diagnosis Coronary artery disease involving kenaitze coronary artery of kenaitze heart without angina pectoris- Primary Paroxysmal atrial flutter (CMS/HCC) (HCC) Dyspnea on exertion Other dyspnea and respiratory abnormality 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 toxicity with mcc use LBBB (left bundle branch block) Other left bundle branch block Bradycardia Other specified cardiac dysrhythmias H/O mechanical aortic valve replacement Dyslipidemia associated with type 2 diabetes mellitus (HCC) VAZQUEZ on CPAP Chronic anticoagulation Encounter for long-term (current) use of anticoagulants documented in this encounter Discontinued Medications Medication Sig Discontinue Reason Start Date End Da te amiodarone (PACERONE) 200 mg tablet Take 1 tablet (200 mg total) by mouth daily Reorder 03/04/2019 01/12/2020 metoprolol tartrate (LOPRESSOR) 25 mg immediate release tabletIndications:Paroxy smal atrial flutter (CMS/HCC) (HCC) Take 0.5 tablets (12.5 mg total) by mouth 2 (two) times a day 06/07/2019 01/12/2020 documented as of this encounter Care Teams Stockfeed Miller Relationship Specialty Start Date End Date Juan Pablo Dominguez MD [address] [address] PCP - General Family Medicine 01/12/20 08/06/20 documented as of this encounter
--- OUTSIDE RECORDS SUMMARY | 2024-03-15 01:57 | XMS_ITS | Encounter Summary ---
Author Organization [facility] Address [address] [address] Care Team Providers Care Automatic Shirring Machine Operator Name Role Phone Juan Pablo Dominguez MD Primary Care Provider Reason for Visit * Reason Onset Date Comments Follow-up 04/17/2020 Encounter Details Date Type Department Care Team (Late st Contact Info) Description 04/17/2020 Documentation [facility] Cardiology [address] [address] Ana Maria Hess NP [address] [facility] [address] [place] [address] Follow-up Social History Tobacco Use Types Packs/Day Years Used Date Smoking Tobacco: Never Smokeless Tobacco: Never Alcohol Use Standard Drinks/Week Comments No 0 (1 standard drink = 0.6 oz pur e alcohol) Comments Unknown Sex and Gender Information Value Date Recorded Sex Assigned at Not on file Legal Sex Female 6:10 AM 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 She states she ???has a head cold?? otherwise feeling fine. She states her blood pressure machine is working again but she has not recorded any blood pressure readings. I asked the staff to schedule her next follow-up visit with Dr. Paredes 3 months. CONVEYOR FEEDER documented in this encounter Plan of Treatment Not on file documented as of this encounter Visit Diagnoses Not on filedocumented in this encounter Care Teams Automatic Shirring Machine Operator Relationship Specialty Start Date End Date Juan Pablo Dominguez MD [address] [address] PCP - General Family Medicine 01/12/20 08/06/20 documented as of this encounter
--- OUTSIDE RECORDS SUMMARY | 2024-03-15 01:57 | XMS_ITS | Encounter Summary ---
Author Organization [facility] Address [address] [place] [address] Care Team Providers Care Mechanical Engineering Teacher Name Role Phone Hong Holder MD Primary Care Provider [phone] [phone] Reason for Visit * Diagnostic Imaging (Routine) - Closed Specialty Diagnoses / Procedures Referred By Contac t Referred To Contact Diagnoses H/O mechanical aortic valve replacement Procedures Transthoracic Echo Complete W Doppler/CF Hali Hess NP Phone: tel: fax: [facility] Medical [facility] Referral ID Status Reason Start Date Expiration Date Visits Re quested Visits Authorized [id number] Closed 08/03/2018 02/12/2020 1 1 Encounter Details Date Type Department Care Team (Latest Contact Info) Description 10/19/2018 1:00 PM CDT Ancillary Procedure [facility] Medical [facility] Cardiology [address] [place] [address] H/O mechanical aortic valve replacement Social History Tobacco Use Types Packs/Day Years Used Date Smoking Tobacco: Never Smokeless Tobacco: Never Alcohol Use Standard Drinks/Week Comments No 0 (1 standard drink = 0.6 oz pur e alcohol) Comments Unknown Sex and Gender Information Value Date Recorded Sex Assigned at Not on file Legal Sex Female 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 Gender Identity Not on file Sexual Orientation Not on file documented as of this encounter Plan of Treatment Not on file documented as of this encounter Procedures Procedure Name Priority Date/Time Associated Diagnosis Comments TRANSTHORACIC ECHO (TTE) COMPLETE W DOPPLER/CF W CONTRAST Routine 10/19/2018 1:51 PM CDT H/O mechanical aortic valve replacement documented in this encounter Results * TRANSTHORACIC ECHO (TTE) COMPLETE W DOPPLER/CF W CONTRAST (10/19/2018 1:51 PM CDT) Anatomical Region Laterality Modality Ultrasound 10/19/2018 11:5 9 AM CDT Narrative 10/19/2018 5:46 PM CDT [facility] [address] [facility] [facility] [address], [place] [address] [address], [place] [address] P:[phone] P:[phone] Echocardiographic Report Patient Name: RADHA BOBO : 1945 Study Date: 10/19/2018 11:59:17 AM Gender: F Tech: Location: [place] Ref.Provider: FRANK Height(Cm): 163 BSA: 1.88 Weight(Kg): 82.56 Heart Rate: 47 BP: 130/60 Quality: Definity contrast agent used to enhance endocardial border definition Order Provider: HALI HESS Procedures: Echocardiographic Report: Transthoracic echocardiogram with complete 2D, M-Mode, color Doppler examination and Definity contrast. Indications: Aortic Valve Replacement 19. Measurements: 2D/M Mode ?Doppler ? Measurement ?Value ?Normal Range ? Measurement ?Value ?Normal Range ? EF Mod ? 53 ?YADIRA ?1.01 ? [ 2.00 - 4.00 ] cm2 ? EF MM ?69 ? [ 55 - 70 ] % ?AV Mean PG ? 24 ? mmHg ? LVIDd MM ? 5.33 ? [ 3.90 - 5.30 ] cm ? AV Peak Randall ?3.16 ? m/s ? LVIDs MM ? 3.23 ? [ 2.30 - 3.90 ] cm ? AV Peak PG ? 40 ? mmHg ? LVPWd MM ? 1.35 ? [ 0.60 - 1.00 ] cm ? AV VTI ? 0.78 ? cm ? IVSd MM ?1.35 ? [ 0.60 - 0.90 ] cm ? LVOT Diam ?2.12 ? [ 1.70 - 2.10 ] cm ? LA Dimension MM ?4.05 ? [ 2.70 - 3.80 ] cm ? LVOT Peak Randall ?0.82 ? [ 0.70 - 1.10 ] m/s ? AoR Diam MM ?2.77 ? [ 2.60 - 3.70 ] cm ? LVOT VTI ? 0.22 ? cm ? LA Volume Index ?32.00 ?[ 16.00 - 28.00 ] cc/m2 ?MV E Peak Randall ?1.07 ? [ 0.60 - 1.30 ] m/s ? MV A Peak Randall ?0.97 ? [ 0.40 - 0.80 ] m/s ? MV Decel Time ?209 ?[ 150 - 200 ] msec ? PV Peak Randall ?0.97 ? [ 0.40 - 0.80 ] m/s ? TR Peak Randall ?2.44 ? [ 0.40 - 0.80 ] m/s ? TR Peak PG ? 24 ? mmHg ? RVSP ? 32.00 ?mmHg ? E' ? 0.07 ? E/E' ? 16 ? Findings: Interpretation Site: Exam was interpreted at [facility]. Left Ventricle: Normal left ventricular systolic function. No focal wall motion abnormalities. Normal left ventricular size. Definity contrast agent used to visually enhance endocardial wall motion and contractility. Lot Number: [id number]. Mild concentric left ventricular hypertrophy. Impaired diastolic relaxation Grade I. Ejection fraction is measured at 53 %. Right Ventricle: Normal right ventricular size. Left Atrium: There is mild enlargement of left atrium. Right Atrium: The right atrium is normal in size. Atrial Septum: Normal atrial septum. Mitral Valve: Normal appearance of the mitral valve. Mild mitral annular calcification. Mild mitral valve regurgitation. Aortic Valve: Peak gradient of 40.0 mmHg. Mean gradient of 24.0 mmHg. Valve area of 1.01 cm2. Trace aortic valve regurgitation. Normal appearing aortic valve prosthesis. Gradients normal for valve type and size. Tricuspid Valve: Tricuspid valve not well visualized. Estimated peak RVSP is 32 mmHg. Trivial regurgitation in the tricuspid valve. Pulmonic Valve: Pulmonic valve not well visualized. Pericardium: Normal pericardium with no significant pericardial effusion. Aorta: Normal aortic root. IVC: The IVC is not well visualized. Pulmonary Artery: Pulmonary artery not well visualized. Conclusions: Normal left ventricular systolic function. No [...] higher and there is now trivial AI. Electronically Signed By: Jose Martin MD, [facility] 2018-10-19 17:46:31 CDT Procedure Note Jose Martin MD - 10/19/2018 [facility] [address] [facility] [address] [address] [place] [address] [address], [place] [address] P:[phone] P:[phone] Echocardiographic Report Patient Name: RADHA BOBOPatient ID: [id number] : [id number] Date: 10/19/2018 11:59:17 AM Gender: FAccession #: [id number] Tech: GMLocation: [place] Ref.Provider: BAYERHeight(Cm): 163 BSA: 1.88Weight(Kg): 82.56 Heart Rate: 47BP: 130/60 Quality: Definity contrast agent used to enhance endocardial borderdefinitionOrder Provider: HALI HESS Procedures: Echocardiographic Report: Transthoracic echocardiogram with complete 2D, M-Mode, color Dopplerexamination and Definity contrast. Indications: Aortic Valve Replacement 19. Measurements: 2D/M Mode Doppler Measurement Value Normal Range MeasurementValue Normal Range EF Mod 53 AVA1.01 [ 2.00 - 4.00 ] cm2 EF MM 69 [ 55 - 70 ] % AV Mean PG 24mmHg LVIDd MM 5.33 [ 3.90 - 5.30 ] cm AV Peak Vel3.16 m/s LVIDs MM 3.23 [ 2.30 - 3.90 ] cm AV Peak PG 40mmHg LVPWd MM 1.35 [ 0.60 - 1.00 ] cm AV VTI0.78 cm IVSd MM 1.35 [ 0.60 - 0.90 ] cm LVOT Diam2.12 [ 1.70 - 2.10 ] cm LA Dimension MM 4.05 [ 2.70 - 3.80 ] cm LVOT Peak Vel0.82 [ 0.70 - 1.10 ] m/s AoR Diam MM 2.77 [ 2.60 - 3.70 ] cm LVOT VTI0.22 cm LA Volume Index 32.00 [ 16.00 - 28.00 ] cc/m2 MV E Peak Vel1.07 [ 0.60 - 1.30 ] m/s MV A Peak Vel0.97 [ 0.40 - 0.80 ] m/s MV Decel [id number] [ 150 - 200 ] msec PV Peak Vel0.97 [ 0.40 - 0.80 ] m/s TR Peak Vel2.44 [ 0.40 - 0.80 ] m/s TR Peak PG 24mmHg RVSP32.00 mmHg E'0.07 E/E' 16 Findings: Interpretation Site: Exam was interpreted at [facility]. Left Ventricle: Normal left ventricular systolic function. No focal wall motionabnormalities. Normal left ventricular size. Definity contrast agent used to visually enhanceendocardial wall motion and contractility. Lot Number: [id number]. Mild concentric leftventricular hypertrophy. Impaired diastolic relaxation Grade I. Ejection fraction ismeasured at 53 %. Right Ventricle: Normal right ventricular size. Left Atrium: There is mild enlargement of left atrium. Right Atrium: The right atrium is normal in size. Atrial Septum: Normal atrial septum. Mitral Valve: Normal appearance of the mitral valve. Mild mitral annular calcification.Mild mitral valve regurgitation. Aortic Valve: Peak gradient of 40.0 mmHg. Mean gradient of 24.0 mmHg. Valve area of 1.01cm2. Trace aortic valve regurgitation. Normal appearing aortic valve prosthesis.Gradients normal for valve type and size. Tricuspid Valve: Tricuspid valve not well visualized. Estimated peak RVSP is 32 mmHg.Trivial regurgitation in the tricuspid valve. Pulmonic Valve: Pulmonic valve not well visualized. Pericardium: Normal pericardium with no significant pericardial effusion. Aorta: Normal aortic root. IVC: The IVC is not well visualized. Pulmonary Artery: Pulmonary artery not well visualized. Conclusions: Normal left ventricular systolic function. No focal wall motionabnormalities. Normal left ventricular size. Definity contrast agent used to visually enhanceendocardial wall motion and contractility. Lot Number: [id number]. Mild concentric leftventricular hypertrophy. Impaired diastolic relaxation Grade I. Ejection fraction ismeasured at 53 %. There is mild enlargement of left atrium. Peak gradient of 40.0 mmHg. Mean gradient of 24.0 mmHg. Valve area of 1.01cm2. Trace aortic valve regurgitation. Normal appearing aortic valve prosthesis.Gradients normal for valve type and size. Compared with 2017 prosthetic aortic gradient slightly higher and there isnow trivial AI. Electronically Signed By: Jose Martin MD, [facility] 2018-10-19 17:46:31 CDT Hali Hess NP CV ECHO PROCEDURES Final Result documented in this encounter Visit Diagnoses Diagnosis H/O mechanical aortic valve replacement documented in this encounter Administered Medications Inactive Administered Medications - up to 3 most recent administrations Medication Order MAR Action Action Date Dose Rate Site perflutren lipid (DEFINITY) 1.5 mL in sodium chloride 0.9% 10 mL syringe 1-10 mL, intravenous, Once in imaging, contrast, Starting on 10/19/18 at 1335, For 1 dose Given 10/19/2018 1:48 PM CDT 1 mL documented in this encounter Care Teams Mechanical Engineering Teacher Relationship Specialty Start Date End Date Hong Holder MD [address] [facility] [address] [place] [address] PCP - General 06/06/16 01/11/20 documented as of this encounter
--- OUTSIDE RECORDS SUMMARY | 2024-03-15 01:57 | XMS_ITS | Encounter Summary ---
Author Organization [facility] Medical [facility] Address [address] [place] [address] Care Team Providers Care Shot Polisher And Inspector Name Role Phone Hong Holder MD Primary Care Provider [phone] Reason for Visit * Reason Comments Follow-up 2 mo follow up on PA F, HTN, CHF, TORRES, dyslipidemia, VAZQUEZ, LBBB * Cardiology (Routine) - Closed Specialty Diagnoses / Procedures Referred By Contac t Referred To Contact Cardiology Diagnoses Other chest pain Hong Holder MD Phone: tel: fax: [facility] Cardiology [address] [place] [address] Phone: tel: fax: Referral ID Status Reason Start Date Expiration Date Visits Re quested Visits Authorized [id number] Closed 10/18/2018 08/11/2019 10 10 Encounter Details Date Type Department Care Team (Late st Contact Info) Description 05/06/2019 2:30 PM FITNESS ATTENDANT Office Visit [facility] Medical [facility] Cardiology [address] [place] [address] Maurice Paredes MD [address] [place] [address] [address] [facility] [place] [id number] Hypertensive heart disease with chronic diastolic congestive heart failure (CMS/HCC) (Primary Dx); Bradycardia; Paroxysmal atrial flutter (CMS/HCC); Coronary artery disease involving chickahominy indian tribe coronary artery of chickahominy indian tribe heart without angina pectoris; LBBB (left bundle branch block); VAZQUEZ on CPAP; Dyslipidemia associated with type 2 diabetes mellitus (CMS/HCC); Dizziness; H/O mechanical aortic valve replacement; Chronic anticoagulation; 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 toxicity with longterm use; Abnormal stress test Social History Tobacco Use Types Packs/Day Years Used Date Smoking Tobacco: Never Smokeless Tobacco: Never Alcohol Use Standard Drinks/Week Comments No 0 (1 standard drink = 0.6 oz pur e alcohol) Comments Unknown Sex and Gender Information Value Date Recorded Sex Assigned at Not on file 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 Gender Identity Not on file Sexual Orientation Not on file documented as of this encounter Last Filed Vital Signs Vital Sign Reading Time Taken Comments Blood Pressure 106/50 05/06/2019 2:57 PM FITNESS ATTENDANT Pulse 61 05/06/2019 2:55 PM FITNESS ATTENDANT Temperature - - Respiratory Rate - - Oxygen Saturation 98% 05/06/2019 2:55 PM FITNESS ATTENDANT Inhaled Oxygen Concentration - - Weight 79.4 kg (175 lb) 05/06/2019 2:55 PM FITNESS ATTENDANT Height 162.6 cm (5' 4 ) 05/06/2019 2:55 PM FITNESS ATTENDANT Body Mass Index 30.04 05/06/2019 2:55 PM FITNESS ATTENDANT documented in this encounter Progress Notes * Maurice Paredes MD - 05/06/2019 2:30 PM CST [facility] DATE OF VISIT: 05/06/2019 CHIEF COMPLAINT Chief Complaint Patient presents with ??? Follow-up 2 mo follow up on PAF, HTN, CHF, TORRES, dyslipidemia, VAZQUEZ, LBBB HPI Radha Taz Amina is a 73 y.o. female with a [...] to see PCP. 08/12/17 Admitted to [facility] in June due to SOB found to be in A.Fib and started on Diltiazem and Metoprolol. Was discharged still with TORRES then sxs continued to worsen and readmitted to [place] in July. She was started on Sotalol [...] little. She still has not seen a [employer]. Not using CPAP for a year. She later admits she is only taking maybe 4 of her medicines but she is not sure if she is taking Sotalol. 02/08/19 CAT visit: Patient presented to [facility] on 12/17/18 complaint of shortness of breath. She was found to be in AFib with RVR. New echo showed EF 50% , mild RV dysfunction , YADIRA 1.4 cm2 with mean gradient 12 mmHg. She was put on metoprolol and loaded with amiodarone. She returned on01/13/19 for ALFRED/CV but cardioversion was unsuccessful. She was kept on amiodarone for rate control.She returns to the office today and has [...] dose for edema once every 2 weeks. MEDICAL HISTORY Past Medical History: Diagnosis Date [...] mg tablet metFORMIN (GLUCOPHAGE) 1,000 mg tablet metoprolol (LOPRESSOR) 50 mg tablet omeprazole (PriLOSEC) 20 mg capsule PROAIR HFA 90 mcg/actuation inhaler traZODone (DESYREL) 50 mg tablet venlafaxine 150 mg tablet extended release 24hr 24 hr tablet warfarin (COUMADIN) 10 mg tablet warfarin (COUMADIN) 2 mg tablet magnesium oxide 400 mg capsule polyethylene glycol (MIRALAX) 17 gram packet sotalol (BETAPACE) 80 mg tablet ALLERGIES Allergies [...] dysuria, hematuria and nocturia. Neurological: Positive for dizziness. Negative for excessive daytime sleepiness, focal weakness, headaches, light-headedness, loss of balance and weakness. Psychiatric/Behavioral: Negative for altered mental status, depression and memory loss. The patientis not nervous/anxious. Allergic/Immunologic: Negative for environmental allergies. PHYSICAL EXAM Vitals BP 106/50 (BP Location: Right arm, Patient Position: Standing) Pulse 61 Ht 162.6 cm (5' 4 ) Wt 79.4 kg (175 lb) SpO2 98% BMI 30.04 kg/m?? Weight: 79.4 kg (175 lb) Height: 162.6 cm (5' 4 ) Body mass index is 30.04 kg/m??. Physical Exam Constitutional: She is oriented [...] is present with a grade of 2/6. [place] metallic S2 Pulmonary/Chest: Effort normal and breath [...] is normal. Atrial fibrillation. Possible old anterior FL. Negative EKG portion of stress test. Personally reviewed EKG, Echocardiogram, stress test, and bloodwork/lipids and hospital records from [facility] 06/2017 and [facility] 07/2017. ASSESSMENT Diagnoses and all orders for this visit: Hypertensive heart disease with chronic diastolic congestive heart failure (CMS/HCC) (Primary) Bradycardia Paroxysmal atrial flutter (CMS/HCC) - ECG 12 lead Coronary artery disease involving chickahominy indian tribe coronary artery of chickahominy indian tribe heart without angina pectoris - ECG 12 lead LBBB (left bundle branch block) VAZQUEZ on CPAP Dyslipidemia associated with type 2 diabetes mellitus (CMS/HCC) Dizziness H/O mechanical aortic valve replacement Chronic anticoagulation 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 toxicity with dedicated intermodal truck driver use Abnormal stress test PLAN/RECOMMENDATIONS 1. BP controlled but borderline orthostatic today. Monitor BP on routine basis. Call with readings.Continue consistent cardiovascular exercise, weight loss, medication compliance, [...] monitor closely. 9. Stable, A. flutter controlled, failed ALFRED/CV 01/2019. Continue current medical therapy and systemic anticoagulation for stroke risk reduction. CHADS2 Vasc score 3-4. -Sotalol stopped, Amiodarone started, Metoprolol 50mg BID continued. -Very bradycardic. Reduce Metoprolol to 25mg BID, monitor sxs, call Thursday for recommendations. Repeat EKG in office next week. -Reduce Lasix to 20 mg daily. Ambulate with extreme caution. Instructions written down for patient.Call with any questions or concerns. -12 lead EKG today marked bradycardia 46 beats per minute nonspecific IVCD AL interval 198 milliseconds QRS 162 milliseconds -[facility] 2001 with minimal luminal irregularities.12/2018 Lexiscan possible old anterior FL EF 62%. Over 50% of this visit counseling mechanical aortic valve, HTN, lipids, medications, lifestyle modification. Follow up in the office in 1 month with Ana Maria or sooner as needed. Thank you for allowing me the privilege of participating in the care this very pleasant patient. Please do not hesitate to contact me with any additional questions or concerns. Dilma Paredes MD, [facility] ESS ATTENDANT documented in this encounter Plan of Treatment Not on file documented as of this encounter Procedures Procedure Name Priority Date/Time Associated Diagnosis Comments ECG 12-LEAD Routine 05/06/2019 Paroxysmal atrial flutter (CMS/HCC) Coronary artery disease involving chickahominy indian tribe coronary artery of chickahominy indian tribe heart without angina pectoris documented in this encounter Results * ECG 12 lead (05/06/2019) Maurice Paredes MD ECG ORDERABLES Final Re sult documented in this encounter Visit Diagnoses Diagnosis Hypertensive heart disease with chronic diastolic congestive heart failure (CMS/HCC) (HCC)- Primary Bradycardia Other specified cardiac dysrhythmias Paroxysmal atrial flutter (CMS/HCC) (HCC) Coronary artery disease involving chickahominy indian tribe coronary artery of chickahominy indian tribe heart without angina pectoris LBBB (left bundle branch block) Other left bundle branch block VAZQUEZ on CPAP Dyslipidemia associated with type 2 diabetes mellitus (HCC) Dizziness Dizziness and giddiness H/O mechanical aortic valve replacement Chronic anticoagulation Encounter for long-term (current) use of anticoagulants 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 toxicity with longterm use Abnormal stress test Other nonspecific abnormal cardiovascular system function study documented in this encounter Discontinued Medications Medication Sig Discontinue Reason Start Date End Da te sotalol (BETAPACE) 80 mg tablet TAKE 1 TABLET BY MOUTH TWICE DAILY Therapy completed 09/06/2018 05/06/2019 polyethylene glycol (MIRALAX) 17 gram packet Take 17 g by mouth daily. Therapy completed 05/06/2019 magnesium oxide 400 mg capsule Take 400 mg by mouth 2 (two) times a day. Therapy completed 05/06/2019 documented as of this encounter Care Teams Shot Polisher And Inspector Relationship Specialty Start Date End Date Hong Holder MD [address] [facility] [address] [place] [address] PCP - General 06/06/16 01/11/20 documented as of this encounter
--- OUTSIDE RECORDS SUMMARY | 2024-03-15 01:57 | XMS_ITS | Encounter Summary ---
Author Organization [facility] Medical Group Address [address] [address] Care Team Providers Care Sr. Merchandise Planner Name Role Phone Miscellaneous, Not In File Primary Care Provider Unavailable Encounter Details Date Type Department Care Team (Latest Contact Info) Description 08/22/2020 Anticoagulation Visit [facility] Medical 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 Merchandise Planner Relationship Specialty Start Date End Date Miscellaneous, Not In File PCP - General 08/07/20 2 documented as of this encounter
--- OUTSIDE RECORDS SUMMARY | 2024-03-15 01:57 | XMS_ITS | Encounter Summary ---
Author Organization [facility] Address [address] [facility] [address] [place] [address] Care Team Providers Care Supervisor Shipping Name Role Phone Hong Holder MD Primary Care Provider [phone] Encounter Details Date Type Department Care Team (Late st Contact Info) Description 12/17/2018 Orders Only [facility] Cardiology [address] [place] [address] Paxton Villela MD [address] [place] [id number] Social History Tobacco Use Types Packs/Day Years Used Date Smoking Tobacco: Never Smokeless Tobacco: Never Alcohol Use Standard Drinks/Week Comments No 0 (1 standard drink = 0.6 oz pur e alcohol) Comments Unknown Sex and Gender Information Value Date Recorded Sex Assigned at Not on file 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 Sex Female 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 Gender Identity Not on file Sexual Orientation Not on file documented as of this encounter Plan of Treatment Not on file documented as of this encounter Procedures Procedure Name Priority Date/Time Associated Diagnosis Comments CARDIOLOGY DOCUMENT SCAN Routine 12/17/2018 documented in this encounter Results * SCAN - CARDIOLOGY (12/17/2018) Anatomical Region Laterality Modality Other Paxton Villela MD CV C[facility] SERVICES PROCEDURES Final Result documented in this encounter Visit Diagnoses Not on filedocumented in this encounter Care Teams Supervisor Shipping Relationship Specialty Start Date End Date Hong Holder MD [address] [address] [place] [address] PCP - General 06/06/16 01/11/20 documented as of this encounter
--- OUTSIDE RECORDS SUMMARY | 2024-03-15 01:57 | XMS_ITS | Encounter Summary ---
Author Organization [facility] Address [address] [address] Care Team Providers Care Design Architect Name Role Phone Miscellaneous, Not In File Primary Care Provider Unavailable Reason for Visit * Reason Onset Date Comments Prob w/med 08/08/2020 Encounter Details Date Type Department Care Team (Late st Contact Info) Description 08/08/2020 Telephone [facility] Cardiology [address] [phone] Christiane Carrera MD [address] [facility] [address] [place] [id number] Prob w/med Social History Tobacco Use Types Packs/Day Years Used Date Smoking Tobacco: Never Smokeless Tobacco: Never Alcohol Use Standard Drinks/Week Comments No 0 (1 standard drink = 0.6 oz pur e alcohol) Comments Unknown Sex and Gender Information Value Date Recorded Sex Assigned at Not on file 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 Will wait for patient to return call after listening to DR. cote message. * Telephone Encounter - Christiane Carrera MD - 08/08/2020 8:31 PM CDT Pt called the exchange, was having trouble w/ her meds. I called twice and got answering machine, [facility] office in a.m. w/ her questions. documented in this encounter Plan of Treatment Not on file documented as of this encounter Visit Diagnoses Not on filedocumented in this encounter Care Teams Design Architect Relationship Specialty Start Date End Date Miscellaneous, Not In File PCP - General 08/07/2003/10/ 2 documented as of this encounter
--- OUTSIDE RECORDS SUMMARY | 2024-03-15 01:57 | XMS_ITS | Encounter Summary ---
Author Organization [facility] Address [address] [facility] [address] [place] [id number] Care Team Providers Care Content Management Consultant Name Role Phone Hong Holder MD Primary Care Provider [phone] Reason for Visit * Reason Comments Follow-up A-fib * Cardiology (Routine) - Closed Specialty Diagnoses / Procedures Referred By Contac t Referred To Contact Cardiology Diagnoses Other chest pain Hong Holder MD Phone: tel: fax: [facility] Medical [facility] [address] [phone] Phone: tel: fax: Referral ID Status Reason Start Date Expiration Date Visits Re quested Visits Authorized [id number] Closed 10/18/2018 08/11/2019 10 10 Encounter Details Date Type Department Care Team (Late st Contact Info) Description 02/08/2019 11:30 AM 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 DRIVER Office Visit [facility] [address] [place] [phone] Ana Maria Hess NP [address] [address] Paroxysmal atrial flutter (CMS/HCC) (Primary Dx); Paroxysmal atrial fibrillation (CMS/HCC); On amiodarone therapy; Chronic anticoagulation; H/O mechanical aortic valve replacement; Hospital discharge follow-up Social History Tobacco Use Types Packs/Day Years Used Date Smoking Tobacco: Never Smokeless Tobacco: Never Tobacco Cessation:Counseling Given: Yes Alcohol Use Standard Drinks/Week Comments No 0 (1 standard drink = 0.6 oz pur e alcohol) Comments Unknown Sex and Gender Information Value Date Recorded Sex Assigned at Not on file Legal Sex Female 6:10 AM BICYCLE TAXI DRIVER Gender Identity Not on file Sexual Orientation Not on file documented as of this encounter Last Filed Vital Signs Vital Sign Reading Time Taken Comments Blood Pressure 144/70 02/08/2019 11:54 AM BICYCLE TAXI DRIVER Pulse 74 02/08/2019 11:54 AM BICYCLE TAXI DRIVER Temperature - - Respiratory Rate - - Oxygen Saturation 98% 02/08/2019 11:54 AM BICYCLE TAXI DRIVER Inhaled Oxygen Concentration - - Weight 80.9 kg (178 lb 4.8 oz) 02/08/2019 11:54 AM BICYCLE TAXI DRIVER Height 162.6 cm (5' 4 ) 02/08/2019 11:54 AM BICYCLE TAXI DRIVER Body Mass Index 30.61 02/08/2019 11:54 AM BICYCLE TAXI DRIVER documented in this encounter Progress Notes * Ana Maria Hess NP - 02/08/2019 11:30 AM CST [facility] Date of Visit: 02/08/2019 Patient ID: Radha Huynh 1945 Chief Complaint: Radha Huynh is a 73 y.o. female who is an established patient of Dr. Paredes with history of paroxysmal atrial flutter returning the office for hospital follow-up appointment after she was treated for atrial fibrillation with RVR. History of Present Illness: Radha Huynh is a 73 y.o. female with a [...] Going to see PCP. 08/12/17 Admitted to [facility] in June due to SOB found to be in A.Fib and started on Diltiazem and Metoprolol. Was discharged still with TORRES then sxs continued to worsen and readmitted to [facility] in July. She was started on Sotalol (Dilt and Metoprolol stopped). She spontaneously converted to SR prior to RODERICK/CV. SOB resolved, back at baseline no complaints. [...] little. She still has not seen a Document Reviewer. Not using CPAP for a year. She later admits she is only taking maybe 4 of her medicines but she is not sure if she is taking Sotalol. New LBBB was noted, sopatient returned on 12/13/18 for stress test which was negative for ischemia. 02/08/19 CAT visit: Patient presented to [facility] on 12/17/18 complaint of shortness of breath. She was found to be in AFib with RVR. New echo showed EF 50% , mild RV dysfunction , YADIRA 1.4 cm2 with mean gradient 12 mmHg. She was put on metoprolol and loaded with amiodarone. She returned on 01/13/19 for RODERICK/CV but cardioversion was unsuccessful. She was kept [...] due to artifact, LBBB, rate 74 bpm Records that I personally reviewed on the day of this visit include: (the interpretation is outlined in the HPI above) 12/08/[address] Paredes, 12/13/2018 stress test report, 12/17/2018 inpatient consultation note from Dr. pruitt and echocardiogram report, 12/19/2018 discharge summary, 01/13/2019 roderick cardioversion report I have also reviewed: allergies, current medications, past family history, past medical history, past social history, past surgical history and problem list Review of Systems Constitution: Negative for diaphoresis, fever, malaise/fatigue, weight gain and weight loss. HENT: Positive for hearing loss. Eyes: Positive for visual disturbance. Cardiovascular: Positive for leg swelling. Negative for chest pain, claudication, dyspnea on exertion, orthopnea, palpitations, paroxysmal nocturnal dyspnea and syncope. Respiratory: Negative for cough, hemoptysis, shortness of breath, snoring and wheezing. Hematologic/Lymphatic: Does not bruise/bleed easily. Skin: Negative for poor wound healing and rash. Musculoskeletal: Negative for joint pain and myalgias. Gastrointestinal: Negative for heartburn, nausea and vomiting. Genitourinary: Negative for hematuria. Neurological: Negative for dizziness, headaches and light-headedness. Psychiatric/Behavioral: Negative for depression. The patient is not nervous/anxious. Vital Signs: BP 144/70 (BP Location: Left arm, Patient Position: Sitting) Pulse 74 Ht 162.6 cm (5' 4 ) Wt 80.9 kg (178 lb 4.8 oz) SpO2 98% BMI 30.61 kg/m?? Physical Exam Constitutional: She is oriented to person, place, and time. She appears well- developed and well-nourished. No distress. HENT: Head: Normocephalic and atraumatic. Nose: Nose normal. Mouth/Throat: Mucous membranes are normal. Eyes: Pupils are equal, round, and reactive to light. Conjunctivae and EOM are normal. No scleral icterus. Neck: Normal range of motion. No JVD present. No tracheal deviation present. Cardiovascular: Normal rate and regular rhythm. Murmur heard. Systolic murmur is present with a grade of 1/6. Mechanical click Pulmonary/Chest: Effort normal and breath sounds normal. No respiratory distress. Abdominal: Soft. Bowel sounds are normal. There is no tenderness. Musculoskeletal: Normal range of motion. General: No edema. Neurological: She is alert and oriented to person, place, and time. Skin: Skin is warm and dry. Psychiatric: She has a normal mood and affect. Allergies Allergen Reactions ??? Bacitracin ??? Benzalkonium ??? Gramicidin D ??? Hydrocortisone ??? Neomycin ??? Polymyxin B ??? Skin Cleanser Current Outpatient Medications: ??? amiodarone (PACERONE) 200 mg tablet, Take 200 mg by mouth daily, Disp: , Rfl: 3 ??? atorvastatin (LIPITOR) 10 mg [...] mouth daily, Disp: , Rfl: 3 ??? magnesium oxide 400 mg capsule, Take 400 mg by mouth 2 (two) times a day., Disp: , Rfl: ??? metFORMIN (GLUCOPHAGE) 1,000 mg tablet, take 1 tablet (1000MG) by oral route 2 times every day with morning and evening meals, Disp: , Rfl: 0 ??? metoprolol (LOPRESSOR) 50 mg tablet, Take 50 mg by mouth every 12 (twelve) hours, Disp: , Rfl: 0 ??? omeprazole (PriLOSEC) 20 mg capsule, Take 20 mg by mouth daily., Disp: , Rfl: ??? polyethylene glycol (MIRALAX) 17 gram packet, Take 17 g by mouth daily., Disp: , Rfl: ??? PROAIR HFA 90 mcg/actuation inhaler, , Disp: , Rfl: 11 ??? sotalol (BETAPACE) 80 mg tablet, TAKE 1 TABLET BY MOUTH TWICE DAILY, Disp: 180 tablet, Rfl: 1 ??? traZODone (DESYREL) 50 mg tablet, 50 [...] Dr Maxwell manages, Disp: , Rfl: 0 Lab Results Component Value Date POTASSIUM 4.5 07/02/2017 BUNSER 24 05/23/2015 CREATININE 1.0 07/02/2017 CHOL 173 06/29/2017 TRIG 116 06/29/2017 LDL 75 05/23/2015 LDLCALC 84 06/29/2017 HDL 66 06/29/2017 Assessment: Diagnoses and all orders for this visit: Paroxysmal atrial flutter (CMS/HCC) (Primary) Paroxysmal atrial fibrillation (CMS/HCC) On amiodarone therapy Chronic anticoagulation H/O mechanical aortic valve replacement Hospital discharge follow-up Plan/Recommendations: Currently she is rate controlled. Continue amiodarone 200 mg daily. I asked her to check her medication at home in confirm whether not she is taking the metoprolol. Call us back and let us know. I reviewed the necessary monitoring for amiodarone toxicity if Dr. Paredes determined that she will stayon it long-term. She remains on anticoagulation with warfarin, both for her mechanical valve and for her atrial arrhythmias. I reviewed bleeding precautions with her as well. Return to the office to see Dr. Paredes in 2-3 months. Call us sooner with questions or concerns. MAI Guzman- Nurse Practitioner with [facility] This note is dictated and transcribed using [employer] Software. Hourly Shift variancesmay occur. Despite proofreading, typographical errors may occur. CLE TAXI DRIVER documented in this encounter Plan of Treatment Not on file documented as of this encounter Visit Diagnoses Diagnosis Paroxysmal atrial flutter (CMS/HCC) (HCC)- Primary Paroxysmal atrial fibrillation (CMS/HCC) (HCC) Atrial fibrillation On amiodarone therapy Chronic anticoagulation Encounter for long-term (current) use of anticoagulants H/O mechanical aortic valve replacement Hospital discharge follow-up Other follow-up examination documented in this encounter Discontinued Medications Medication Sig Discontinue Reason Start Date End Da te alendronate (FOSAMAX) 70 mg tablet Take 70 mg by mouth every 7 days. Take in the morning with a full glass of water, on an empty stomach, and do not take anything else by mouth or lie down for the next 30 min. Therapy completed 02/08/2019 documented as of this encounter Historical Medications * This list may reflect changes made after this encounter. metoprolol (LOPRESSOR) 50 mg tablet Take 50 mg by mouth every 12 (twelve) hours 0 12/19/2018 06/07/2019 lisinopril (PRINIVIL,ZESTRIL ) 2.5 mg tablet Take 1 tablet (2.5 mg total) by mouth daily 3 01/27/2019 09/18/2022 DOXYCYCLINE 100 mg tablet Take 100 mg by mouth 2 (two) times a day 0 01/20/2019 07/31/2020 cyanocobalamin (Vitamin B-12) 1,000 mcg tabletIndications :Prevention of Vitamin B12 Deficiency Take 1,000 mcg by mouth daily 04/02/2020 amiodarone (PACERONE) 200 mg tablet Take 200 mg by mouth daily 3 01/16/2019 03/04/2019 added in this encounter Care Teams Content Management Consultant Relationship Specialty Start Date End Date Hong Holder MD [address] [facility] [address] [place] [address] PCP - General 06/06/16 01/11/20 documented as of this encounter
--- OUTSIDE RECORDS SUMMARY | 2024-03-15 01:58 | XMS_ITS | Encounter Summary ---
Author Organization [facility] Healthcare Address [address] [place] [id number] Care Team Providers Care Resource Analyst Name Role Phone Hong Holder MD Primary Care Provider [phone] Encounter Details Date Type Department Care Team (Latest Contact Info) Description 06/29/2017 8:50 PM CDT - 07/02/2017 12:55 PM CDT Hospital Encounter [facility] Aleksander Burns MD [facility] [place] [address] Sepsis (CMS/HCC); Atrial flutter (CMS/HCC); Type 2 diabetes mellitus with hyperglycemia (CMS/HCC); Essential (primary) hypertension; Paroxysmal atrial fibrillation (CMS/HCC); Type 2 diabetes mellitus without complications ([facility]/HCC); Do not resuscitate; Body mass index (BMI) of 38.0-38.9 in adult; Obesity; Personal history of nicotine dependence; Presence of prosthetic heart valve; shelter current use of aspirin; shelter current use of anticoagulant Social History Tobacco Use Types Packs/Day Years Used Date Smoking Tobacco: Never Smokeless Tobacco: Never Alcohol Use Standard Drinks/Week Comments No 0 (1 standard drink = 0.6 oz pur e alcohol) Comments Unknown Sex and Gender Information Value Date Recorded Sex Assigned at Not on file 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 Gender Identity Not on file Sexual Orientation Not on file documented as of this encounter Last Filed Vital Signs Vital Sign Reading Time Taken Comments Blood Pressure 113/65 07/01/2017 11:24 AM CDT Pulse 84 07/01/2017 11:24 AM CDT Temperature 36.7 ??C (98.1 ??F) 07/01/2017 11:24 AM C DT Respiratory Rate - - Oxygen Saturation 96% 07/01/2017 11:24 AM CDT Inhaled Oxygen Concentration - - Weight 97.6 kg (215 lb 3.2 oz) 07/01/2017 11:24 AM CDT Height 160 cm (5' 3 ) 07/01/2017 11:24 AM CDT Body Mass Index 38.12 07/01/2017 11:24 AM CDT documented in this encounter Medications at Time of Discharge omeprazole (PriLOSEC) 20 mg capsule Take 1 capsule (20 mg total) by mouth daily ferrous sulfate 325 mg (65 mg of elemental iron) tabletIndication s:Iron Deficiency Anemia Take 325 mg of elemental iron by mouth daily 1 fluticasone (FLONASE) 50 mcg/actuation nasal spray Administer 1 spray into each nostril daily. 1 furosemide (LASIX) 40 mg tablet take 1 tablet (40MG) by oral route every day 0 03/19/2011 1 gabapentin (NEURONTIN) 300 mg capsule take 1 capsule by oral route 2 times every day 0 0 08/15/2014 1 HYDROcodone-acet aminophen (LORCET 10-650) 10-650 mg per tablet take 1 tablet by oral route every 4 - 6 hours as needed for pain 0 03/19/2011 1 lisinopril (PRINIVIL,ZESTRI L) 10 mg tablet take 1 tablet by oral route every day 0 0 09/12/2014 8 magnesium oxide 400 mg capsule Take 400 mg by mouth 2 (two) times a day. 0 meclizine (ANTIVERT) 25 mg tablet take 1 tablet by oral route 3 times every day as needed 0 0 07/16/2015 9 metFORMIN (GLUCOPHAGE) 1,000 mg tablet take 1 tablet (1000MG) by oral route 2 times every day with morning and evening meals 0 03/19/[address] (PROTONIX) 40 mg EC tablet take 1 tablet by oral route every day 0 0 09/12/2014 9 pioglitazone (ACTOS) 15 mg tablet take 1 tablet (15MG) by oral route every day 0 03/19/2011 9 polyethylene glycol (MIRALAX) 17 gram packet Take 17 g by mouth daily. 0 tiZANidine (ZANAFLEX) 2 mg tablet Take 2 mg by mouth every 8 (eight) hours as needed for muscle spasms. 9 traZODone (DESYREL) 50 mg tablet take 1 tablet by oral route every day as needed 0 0 08/15/2014 8 venlafaxine 150 mg tablet extended release 24hr 24 hr tablet take 1 tablet by oral route every day in the morning at the same time each day with food 0 08/15/2014 1 warfarin (COUMADIN) 10 mg tablet take 1 tablet (10MG) by oral route every evening 0 03/19/2011 1 warfarin (COUMADIN) 2 mg tablet take 1 tablet (2MG) by oral route every evening Dr Maxwell manages 0 03/19/2011 1 documented as of this encounter Plan of Treatment Not on file documented as of this encounter Procedures Procedure Name Priority Date/Time Associated Diagnosis Comments CBC WITH AUTO DIFFERENTIAL Routine 07/02/2017 6:53 AM CDT PROTIME-INR Routine 07/02/2017 6:53 AM CDT PHOSPHORUS Routine 07/02/2017 6:53 AM CDT MAGNESIUM Routine 07/02/2017 6:53 AM CDT BASIC METABOLIC PANEL Routine 07/02/2017 6:53 AM CDT CBC WITH AUTO DIFFERENTIAL Routine 07/01/2017 6:43 AM CDT PROTIME-INR Routine 07/01/2017 6:43 AM CDT MAGNESIUM Routine 07/01/2017 6:43 AM CDT BASIC METABOLIC PANEL Routine 07/01/2017 6:43 AM CDT CARDIOLOGY REPORT 07/01/2017 12: 00 AM CDT LACTATE Routine 06/30/2017 7:05 AM CDT CBC WITH AUTO DIFFERENTIAL Routine 06/30/2017 7:05 AM CDT HEMOGLOBIN A1C Routine 06/30/2017 7:05 AM CDT BASIC METABOLIC PANEL Routine 06/30/2017 7:05 AM CDT STREP PNEUMONIAE AG, URINE Routine 06/30/2017 1:40 AM CDT LEGIONELLA PNEUMOPHILIA ANTIGEN, URINE Routine 06/30/2017 1:40 AM CDT URINALYSIS, MACRO AND MICRO Routine 06/30/2017 1:40 AM CDT TROPONIN I Routine 06/30/2017 12:25 AM CDT NM PULMONARY VENTILATION AND PERFUSION IMAGING Routine 06/30/2017 12:00 AM CDT MICROBIOLOGY SPECIMEN REPORT (CONVERTED) Routine 06/29/2017 9:43 PM CDT MICROBIOLOGY SPECIMEN REPORT (CONVERTED) Routine 06/29/2017 9:34 PM CDT LACTATE Routine 06/29/2017 9:33 PM CDT TROPONIN I Routine 06/29/2017 9:33 PM CDT PROCALCITONIN PRE-ANTIBIOTIC Routine 06/29/2017 4:43 PM CDT TNI WITH LIPID PANEL Routine 06/29/2017 4:43 PM CDT CRP (ACUTE PHASE) Routine 06/29/2017 4:4 3 PM CDT TSH Routine 06/29/2017 4:43 PM CDT T4, FREE Routine 06/29/2017 4:43 PM CDT PHOSPHORUS Routine 06/29/2017 4:43 PM CDT B-TYPE NATRIURETIC PEPTIDE Routine 06/29/2017 4:43 PM CDT MAGNESIUM Routine 06/29/2017 4:43 PM CDT CREATINE KINASE (CK), TOTAL Routine 06/29/2017 4:43 PM CDT COMPREHENSIVE METABOLIC PANEL Routine 06/29/2017 4:43 PM CDT CBC WITH AUTO DIFFERENTIAL Routine 06/29/2017 4:42 PM CDT APTT Routine 06/29/2017 4:42 PM CDT ERYTHROCYTE SEDIMENTATION RATE Routine 06/29/2017 4:42 PM CDT PROTIME-INR Routine 06/29/2017 4:42 PM CDT D-DIMER, QUANTITATIVE Routine 06/29/2017 4:42 PM CDT CTA CHEST W IV CONTRAST - PE Routine 06/29/2017 12:00 AM CDT XR CHEST 1 VIEW Routine 06/29/2017 12:00 AM CDT XR CHEST PA LATERAL 2 VIEWS Routine 06/29/2017 12:00 AM CDT documented in this encounter Results * (ABNORMAL) Protime-INR (07/02/2017 6:53 AM CDT) PT 23.2(H) 11.8 - 14.5 SECONDS 07/02/2017 7:24 AM CDT [facility] HISTORICAL RESULTS INR 2.04 07/02/2017 7:24 AM CDT [facility] HISTORICAL RESULTS Comment: Recommended Therapeutic range for Oral Anticoagulant Therapy No anti-coagulation therapy ? Normal Range: ?0.8-1.4 Anti-coagulation therapy ? Low intensity therapy ?2.0-3.0 ? High intensity therapy ?? 2.5-3.5 Critical Value ? Greater than or equal to 5.0 Patients should be monitored for serious bleeding. ?? 07/02/2017 6:53 AM CDT 07/02/2017 6:56 AM CDT James Gonzales MD LAB BLOOD ORDERABL ES Final Result Performing Organization Address [facility] de Phone Number [facility] HISTORICAL RESULTS * Phosphorus (07/02/2017 6:53 AM CDT) Phosphorus 3.4 2.5 - 4.5 mg/dL 07/02/2017 7:23 AM CDT [facility] HISTORICAL RESULTS 07/02/2017 6:53 AM CDT 07/02/2017 6:56 AM CDT James Gonzales MD LAB BLOOD ORDERABL ES Final Result Performing Organization Address [facility] de Phone Number [facility] HISTORICAL RESULTS * Magnesium (07/02/2017 6:53 AM CDT) Magnesium 1.8 1.6 - 2.6 mg/dL 07/02/2017 7:23 AM CDT [facility] HISTORICAL RESULTS Comment:Magnesium sulfate th erapy: 3.0-9.1 mg/dL 07/02/2017 6:53 AM CDT 07/02/2017 6:56 AM CDT James Gonzales MD LAB BLOOD ORDERABL ES Final Result Performing Organization Address [facility] de Phone Number [facility] HISTORICAL RESULTS * (ABNORMAL) CBC with auto differential (07/02/2017 6:53 AM CDT) WBC 6.3 3.5 - 10.5 x10 3/ul 07/02/2017 6:59 AM CDT [employer] HISTORICAL RESULTS RBC 3.18(L) 3.76 - 4.80 x10 6/ul 07/02/2017 6:59 AM CDT [facility] HISTORICAL RESULTS Hemoglobin 10.1(L) 11.0 - 15.0 g/dL 07/02/2017 6:59 AM CDT [facility] [employer] HISTORICAL RESULTS Hct 31.0(L) 33.0 - 43.0 % 07/02/2017 6:59 AM CDT [employer] HISTORICAL RESULTS MCV 97.5(H) 80.0 - 97.0 fl 07/02/2017 6:59 AM CDT [employer] HISTORICAL RESULTS MCH 31.8(H) 27.0 - 31.2 pg 07/02/2017 6:59 AM CDT [employer] HISTORICAL RESULTS MCHC 32.6 31.8 - 35.4 g/dl 07/02/2017 6:59 AM CDT [employer] HISTORICAL RESULTS RDW 12.3 11.6 - 14.8 % 07/02/2017 6:59 AM CDT [employer] HISTORICAL RESULTS Plt Count 362 150 - 450 X10 3/ul 07/02/2017 6:59 AM CDT [employer] HISTORICAL RESULTS MPV 11.9(H) 7.4 - 10.4 fl 07/02/2017 6:59 AM CDT [employer] HISTORICAL RESULTS Neut % 63.0 37.0 - 85.0 % 07/02/2017 6:59 AM CDT [employer] HISTORICAL RESULTS Immature Gran % 0.5 0.0 - 3.0 % 07/02/2017 6:59 AM CDT [employer] HISTORICAL RESULTS Lymph % 19.2 5.0 - 45.0 % 07/02/2017 6:59 AM CDT [employer] HISTORICAL RESULTS Loving % 14.5 3.0 - 15.0 % 07/02/2017 6:59 AM CDT [employer] HISTORICAL RESULTS Eos % 2.2 0.0 - 7.0 % 07/02/2017 6:59 AM CDT [employer] HISTORICAL RESULTS Baso % 0.6 0.0 - 2.0 % Absolute Neuts (auto) 3.9 1.7 - 8.7 x10 3/ul Immature Gran # 0.0 0.0 - 0.3 x10 3/ul 07/02/2017 6:59 AM CDT [facility] HISTORICAL RESULTS Absolute Lymphs (auto) 1.2 0.2 - 4.6 x10 3/ul Absolute Monos (auto) 0.9 0.1 - 1.5 x10 3/ul Absolute Eos (auto) 0.1 0.0 - 0.7 x10 3/ul Absolute Basos (auto) 0.0 0.0 - 0.2 x10 3/ul Nucleat RBC Rel Count 0.0 0 - 3 #/100WBC Absolute Nucleated RBC 0.00 x10 3/ul Absolute Neutrophils 3900 200 - 8000 /ul 07/02/2017 6:53 AM CDT 07/02/2017 6:56 AM CDT us James Gonzales MD LAB BLOOD ORDERABL ES Final Result [facility] HISTORICAL RESULTS * (ABNORMAL) Basic metabolic panel (07/02/2017 6:53 AM CDT) Sodium 137 135 - 145 mmol/L Potassium 4.5 3.3 - 5.1 mmol/L Chloride 99 96 - 108 mmol/L 07/02/2017 7:23 AM [facility] HISTORICAL RESULTS Carbon Dioxide 30 22 - 32 mmol/L 07/02/2017 7:23 AM [facility] HISTORICAL RESULTS Anion Gap 8 7 - 16 07/02/2017 7:23 AM [facility] HISTORICAL RESULTS Glucose 123(H) 70 - 100 mg/dL 07/02/2017 7:23 AM [facility] HISTORICAL RESULTS BUN 21 8 - 23 mg/dL 07/02/2017 7:23 AM [facility] HISTORICAL RESULTS Creatinine 1.0 0.5 - 1.1 mg/dL 07/02/2017 7:23 AM [facility] HISTORICAL RESULTS Comment: NOTE: Estimated GFR (Cockroft-Gault) will NOT be calculated unless patient Height and Weight were entered. Also, Kidney Disease Stage (GFR) and Estimated GFR (Cockroft-Gault) will NOT be calculated if Creatinine result is <0.2. Kidney Disease Stage 58 mL/MIN 07/02/2017 7:23 AM [facility] HISTORICAL RESULTS Comment: NOTE; ??The GFR is an estimated value using the creatinine, sex, age, and race of the patient. THE Estimated Kidney Disease GFR is validated for AGES 18-70 YEARS STAGE ?mL/Min ?DESCRIPTION ??1 ?90 mL/min or more ?Normal or elevated GFR ??2 ? 60-89 mL/min ?Mildly decreased GFR ??3 ? 30-59 mL/min ?Moderately decreased GFR ??4 ? 15-29 mL/min ?Severely decreased GFR ??5 ? <15 mL/min ? Kidney failure or on dialysis @ Est GFR (Cockcroft-G) 56 ml/MIN 07/02/2017 7:23 AM [facility] HISTORICAL RESULTS Comment: Estimated GFR(Cockroft-Gault)is used to calculate patient medication dosage Calcium 10.1 8.8 - 10.2 mg/dL 07/02/2017 6:53 AM CDT 07/02/2017 6:56 AM CDT James Gonzales MD LAB BLOOD ORDERABL ES Final Result Performing Organization Address [facility] de Phone Number [facility] HISTORICAL RESULTS * (ABNORMAL) Protime-INR (07/01/2017 6:43 AM CDT) PT 22.6(H) 11.8 - 14.5 SECONDS INR 1.97 Comment: Recommended Therapeutic range for Oral Anticoagulant Therapy No anti-coagulation therapy ? Normal Range: ?0.8-1.4 Anti-coagulation therapy ? Low intensity therapy ?2.0-3.0 ? High intensity therapy ?? 2.5-3.5 Critical Value ? Greater than or equal to 5.0 Patients should be monitored for serious bleeding. ?? 07/01/2017 6:43 AM CDT 07/01/2017 6:59 AM CDT James Gonzales MD LAB BLOOD ORDERABL ES Final Result Performing Organization Address [facility] de Phone Number [facility] HISTORICAL RESULTS * (ABNORMAL) Magnesium (07/01/2017 6:43 AM CDT) Magnesium 1.5(L) 1.6 - 2.6 mg/dL Comment:Magnesium sulfate th erapy: 3.0-9.1 mg/dL 07/01/2017 6:43 AM CDT 07/01/2017 6:59 AM CDT James Gonzales MD LAB BLOOD ORDERABL ES Final Result [facility] HISTORICAL RESULTS * (ABNORMAL) CBC with auto differential (07/01/2017 6:43 AM CDT) WBC 8.3 3.5 - 10.5 x10 3/ul 07/01/2017 7:02 AM CDT [facility] [employer] HISTORICAL RESULTS RBC 3.14(L) 3.76 - 4.80 x10 6/ul 07/01/2017 7:02 AM T [facility] HISTORICAL RESULTS Hemoglobin 10.1(L) 11.0 - 15.0 g/dL 07/01/2017 7:02 AM T [facility] HISTORICAL RESULTS Hct 31.3(L) 33.0 - 43.0 % 07/01/2017 7:02 AM T [facility] HISTORICAL RESULTS MCV 99.7(H) 80.0 - 97.0 fl 07/01/2017 7:02 AM T [facility] HISTORICAL RESULTS MCH 32.2(H) 27.0 - 31.2 pg 07/01/2017 7:02 AM [facility] HISTORICAL RESULTS MCHC 32.3 31.8 - 35.4 g/dl 07/01/2017 7:02 AM T [facility] HISTORICAL RESULTS RDW 12.6 11.6 - 14.8 % 07/01/2017 7:02 AM T [facility] HISTORICAL RESULTS Plt Count 330 150 - 450 X10 3/ul 07/01/2017 7:02 AM T [facility] HISTORICAL RESULTS MPV 12.3(H) 7.4 - 10.4 fl 07/01/2017 7:02 AM T [facility] [employer] HISTORICAL RESULTS Neut % 66.9 37.0 - 85.0 % 07/01/2017 7:02 AM CDT [facility] HISTORICAL RESULTS Immature Gran % 0.2 0.0 - 3.0 % 07/01/2017 7:02 AM [facility] HISTORICAL RESULTS Lymph % 16.6 5.0 - 45.0 % 07/01/2017 7:02 AM [facility] HISTORICAL RESULTS Loving % 14.2 3.0 - 15.0 % 07/01/2017 7:02 AM [facility] HISTORICAL RESULTS Eos % 1.6 0.0 - 7.0 % 07/01/2017 7:02 AM [facility] HISTORICAL RESULTS Baso % 0.5 0.0 - 2.0 % 07/01/2017 7:02 AM [facility] HISTORICAL RESULTS Absolute Neuts (auto) 5.5 1.7 - 8.7 x10 3/ul 07/01/2017 7:02 AM [facility] HISTORICAL RESULTS Immature Gran # 0.0 0.0 - 0.3 x10 3/ul 07/01/2017 7:02 AM [facility] HISTORICAL RESULTS Absolute Lymphs (auto) 1.4 0.2 - 4.6 x10 3/ul 07/01/2017 7:02 AM [facility] HISTORICAL RESULTS Absolute Monos (auto) 1.2 0.1 - 1.5 x10 3/ul 07/01/2017 7:02 AM [facility] HISTORICAL RESULTS Absolute Eos (auto) 0.1 0.0 - 0.7 x10 3/ul 07/01/2017 7:02 AM [facility] HISTORICAL RESULTS Absolute Basos (auto) 0.0 0.0 - 0.2 x10 3/ul 07/01/2017 7:02 AM [facility] HISTORICAL RESULTS Nucleat RBC Rel Count 0.0 0 - 3 #/100WBC 07/01/2017 7:02 AM [facility] HISTORICAL RESULTS Absolute Nucleated RBC 0.00 x10 3/ul 07/01/2017 7:02 AM [facility] HISTORICAL RESULTS Absolute Neutrophils 5500 200 - 8000 /ul 07/01/2017 7:02 AM [facility] HISTORICAL RESULTS 07/01/2017 6:43 AM CDT 07/01/2017 6:59 AM CDT James Gonzales MD LAB BLOOD ORDERABL ES Final Result [facility] HISTORICAL RESULTS * (ABNORMAL) Basic metabolic panel (07/01/2017 6:43 AM CDT) [facility] Sodium 140 135 - 145 mmol/L 07/01/2017 7:28 AM [facility] HISTORICAL RESULTS Potassium 4.3 3.3 - 5.1 mmol/L 07/01/2017 7:28 AM [facility] HISTORICAL RESULTS Chloride 101 96 - 108 mmol/L 07/01/2017 7:28 AM [facility] HISTORICAL RESULTS Carbon Dioxide 32 22 - 32 mmol/L 07/01/2017 7:28 AM [facility] HISTORICAL RESULTS Anion Gap 7 7 - 16 07/01/2017 7:28 AM [facility] HISTORICAL RESULTS Glucose 152(H) 70 - 100 mg/dL 07/01/2017 7:28 AM [facility] HISTORICAL RESULTS BUN 17 8 - 23 mg/dL 07/01/2017 7:28 AM [facility] HISTORICAL RESULTS Creatinine 0.9 0.5 - 1.1 mg/dL 07/01/2017 7:28 AM [facility] HISTORICAL RESULTS Comment: NOTE: Estimated GFR (Cockroft-Gault) will NOT be calculated unless patient Height and Weight were entered. Also, Kidney Disease Stage (GFR) and Estimated GFR (Cockroft-Gault) will NOT be calculated if Creatinine result is <0.2. Kidney Disease Stage 65 mL/MIN 07/01/2017 7:28 AM [facility] HISTORICAL RESULTS Comment: NOTE; ??The GFR is an estimated value using the creatinine, sex, age, and race of the patient. THE Estimated Kidney Disease GFR is validated for AGES 18-70 YEARS STAGE ?mL/Min ?DESCRIPTION ??1 ?90 mL/min or more ?Normal or elevated GFR ??2 ? 60-89 mL/min ?Mildly decreased GFR ??3 ? 30-59 mL/min ?Moderately decreased GFR ??4 ? 15-29 mL/min ?Severely decreased GFR ??5 ? <15 mL/min ? Kidney failure or on dialysis @ Est GFR (Cockcroft-G) 62 ml/MIN 07/01/2017 7:28 AM CDT [facility] HISTORICAL RESULTS Comment: Estimated GFR(Cockroft-Gault)is used to calculate patient medication dosage Calcium 10.0 8.8 - 10.2 mg/dL 07/01/2017 7:28 AM CDT [facility] HISTORICAL RESULTS 07/01/2017 6:43 AM CDT 07/01/2017 6:59 AM CDT us James Gonzales MD LAB BLOOD ORDERABL ES Final Result Performing Organization Address [facility] de Phone Number [facility] HISTORICAL RESULTS * CARDIOLOGY REPORT (07/01/2017 12:00 AM CDT) Anatomical Region Laterality Modality Other Narrative 07/01/2017 12:00 AM CDT Ordered by an unspecified provider. Historical Provider [facility] JOSE RAMON BENOIT Final Result * Lactate (06/30/2017 7:05 AM CDT) L-Lactate 0.7 mmol/L 06/30/2017 7:45 AM CDT [facility] HISTORICAL RESULTS Comment:Lactate Reference Ra nge: 0.5 - 2.2 mmol/L 06/30/2017 7:05 AM CDT 06/30/2017 7:21 AM CDT us Aleksander Burns MD LAB BLOOD ORDERABLES Final Re sult Performing Organization Address [facility] Co de Phone Number [facility] HISTORICAL RESULTS * (ABNORMAL) CBC with auto differential (06/30/2017 7:05 AM CDT) WBC 10.9(H) 3.5 - 10.5 x10 3/ul 06/30/2017 7:31 AM CDT [facility] HISTORICAL RESULTS RBC 3.28(L) 3.76 - 4.80 x10 6/ul 06/30/2017 7:31 AM CDT [facility] HIST[facility]ICAL RESULTS Hemoglobin 10.3(L) 11.0 - 15.0 g/dL 06/30/2017 7:31 AM CDT [facility] H[facility] RESULTS Hct 31.9(L) 33.0 - 43.0 % 06/30/2017 7:31 AM CDT [facility] HISTORICAL RESULTS MCV 97.3(H) 80.0 - 97.0 fl 06/30/2017 7:31 AM T [facility] HISTORICAL RESULTS MCH 31.4(H) 27.0 - 31.2 pg 06/30/2017 7:31 AM T [facility] HISTORICAL RESULTS MCHC 32.3 31.8 - 35.4 g/dl 06/30/2017 7:31 AM T [facility] HISTORICAL RESULTS RDW 12.4 11.6 - 14.8 % 06/30/2017 7:31 AM T [facility] HISTORICAL RESULTS Plt Count 336 150 - 450 X10 3/ul 06/30/2017 7:31 AM T [facility] HISTORICAL RESULTS MPV 12.3(H) 7.4 - 10.4 fl 06/30/2017 7:31 AM [facility] HISTORICAL RESULTS Neut % 75.8 37.0 - 85.0 % 06/30/2017 7:31 AM T [facility] HISTORICAL RESULTS Immature Gran % 0.3 0.0 - 3.0 % 06/30/2017 7:31 AM T [facility] HISTORICAL RESULTS Lymph % 10.0 5.0 - 45.0 % 06/30/2017 7:31 AM CDT [facility] HISTORICAL RESULTS Loving % 12.2 3.0 - 15.0 % 06/30/2017 7:31 AM CDT [facility] [employer] [facility] HISTORICAL RESULTS Eos % 1.2 0.0 - 7.0 % 06/30/2017 7:31 AM CDT [facility] HISTORICAL RESULTS Baso % 0.5 0.0 - 2.0 % 06/30/2017 7:31 AM CDT [facility] [employer] [facility] HISTORICAL RESULTS Absolute Neuts (auto) 8.3 1.7 - 8.7 x10 3/ul Immature Gran # 0.0 0.0 - 0.3 x10 3/ul Absolute Lymphs (auto) 1.1 0.2 - 4.6 x10 3/ul Absolute Monos (auto) 1.3 0.1 - 1.5 x10 3/ul Absolute Eos (auto) 0.1 0.0 - 0.7 x10 3/ul Absolute Basos (auto) 0.1 0.0 - 0.2 x10 3/ul Nucleat RBC Rel Count 0.0 0 - 3 #/100WBC 06/30/2017 7:31 AM [facility] HISTORICAL RESULTS Absolute Nucleated RBC 0.00 x10 3/ul 06/30/2017 7:31 AM [facility] HISTORICAL RESULTS Absolute Neutrophils 8300(H) 200 - 8000 /ul 06/30/2017 7:31 AM [facility] HISTORICAL RESULTS 06/30/2017 7:05 AM CDT 06/30/2017 7:21 AM CDT Aleksander Burns MD LAB BLOOD ORDERABLES Final Re sult [facility] HISTORICAL RESULTS * (ABNORMAL) Basic metabolic panel (06/30/2017 7:05 AM CDT) Sodium 136 135 - 145 mmol/L Potassium 4.1 3.3 - 5.1 mmol/L Chloride 98 96 - 108 mmol/L Carbon Dioxide 28 22 - 32 mmol/L 06/30/2017 7:53 AM [facility] HISTORICAL RESULTS Anion Gap 10 7 - 16 06/30/2017 7:53 AM [facility] HISTORICAL RESULTS Glucose 157(H) 70 - 100 mg/dL 06/30/2017 7:53 AM [facility] HISTORICAL RESULTS BUN 14 8 - 23 mg/dL 06/30/2017 7:53 AM [facility] HISTORICAL RESULTS Creatinine 0.9 0.5 - 1.1 mg/dL 06/30/2017 7:53 AM [facility] HISTORICAL RESULTS Comment: NOTE: Estimated GFR (C[place]roft-Gault) will NOT be calculated unless patient Height and Weight were entered. Also, Kidney Disease Stage (GFR) and Estimated GFR ([place]roft-Gault) will NOT be calculated if Creatinine result is <0.2. Kidney Disease Stage 65 mL/MIN 06/30/2017 7:53 AM [facility] [facility] RESULTS Comment: NOTE; ??The GFR is an estimated value using the creatinine, sex, age, and race of the patient. THE Estimated Kidney Disease GFR is validated for AGES 18-70 YEARS STAGE ?mL/Min ?DESCRIPTION ??1 ?90 mL/min or more ?Normal or elevated GFR ??2 ? 60-89 mL/min ?Mildly decreased GFR ??3 ? 30-59 mL/min ?Moderately decreased GFR ??4 ? 15-29 mL/min ?Severely decreased GFR ??5 ? <15 mL/min ? Kidney failure or on dialysis @ Est GFR (Cockcroft-G) 62 ml/MIN 06/30/2017 7:53 AM [facility] HISTORICAL RESULTS Comment: Estimated GFR(Cockroft-Gault)is used to calculate patient medication dosage Calcium 9.9 8.8 - 10.2 mg/dL 06/30/2017 7:53 AM CDT [facility] HISTORICAL RESULTS 06/30/2017 7:05 AM CDT 06/30/2017 7:21 AM CDT Aleksander Burns MD LAB BLOOD ORDERABLES Final Re sult Performing Organization Address [facility] de Phone Number [facility] HISTORICAL RESULTS * (ABNORMAL) Hemoglobin A1c (06/30/2017 7:05 AM CDT) Hemoglobin A1c % 7.4(H) 4.0 - 5.6 % Comment: ADA 2016 GUIDELINES: ??Initial Diagnostic Criteria ? HbA1c Result: ?Interpretation: ?<5.7% ? Normal ?5.7-6.4% ?At risk for diabetes mellitus ?>=6.5% ?Consistent with diabetes mellitus ??Diabetes monitoring ? Target value (ADA Recommended) ?? <7% 06/30/2017 7:05 AM CDT 06/30/2017 7:21 AM CDT Aleksander Burns MD LAB BLOOD ORDERABLES Final Re sult Performing Organization Address [facility] de Phone Number [facility] HISTORICAL RESULTS * (ABNORMAL) Urinalysis, macro and micro (06/30/2017 1:40 AM CDT) Ur Collection Type CLEAN CATCH Urine Color YELLOW YELLOW Urine Clarity CLEAR CLEAR Urine Glucose (UA) NORMAL NORMAL mg/dL 06/30/2017 1:59 AM [facility] HISTORICAL RESULTS Urine Bilirubin NEGATIVE NEGATIVE mg/dl 06/30/2017 1:59 AM [facility] HISTORICAL RESULTS Urine Ketones NEGATIVE NEGATIVE mg/dL 06/30/2017 1:59 AM [facility] HISTORICAL RESULTS Ur Specific [place] 1.045(H) 1.005 - 1.025 06/30/2017 1:59 AM [facility] HISTORICAL RESULTS Urine Blood NEGATIVE NEGATIVE mg/dl 06/30/2017 1:59 AM [facility] HISTORICAL RESULTS Urine pH 5.0 5.0 - 8.0 06/30/2017 1:59 AM [facility] HISTORICAL RESULTS Urine Protein NEGATIVE NEGATIVE mg/dL 06/30/2017 1:59 AM [facility] HISTORICAL RESULTS Urine Urobilinogen NORMAL NORMAL mg/dL 06/30/2017 1:59 AM [facility] HISTORICAL RESULTS Urine Nitrite NEGATIVE NEGATIVE 06/30/2017 1:59 AM [facility] HISTORICAL RESULTS Ur Leukocyte Esterase 250(H) NEGATIVE Melody/ul 06/30/2017 1:59 AM [facility] HISTORICAL RESULTS Ur Microscopic Review Indicated or Ordered 06/30/2017 1:59 AM [facility] HISTORICAL RESULTS Urine RBC 2 0 - 2 /HPF 06/30/2017 1:59 AM [facility] HISTORICAL RESULTS Urine WBC 20 0 - 2 /HPF 06/30/2017 1:59 AM [facility] HISTORICAL RESULTS Urine Mucus RARE /LPF 06/30/2017 1:59 AM [facility] HISTORICAL RESULTS Ur Squamous Epith Cells Rare /HPF 06/30/2017 1:59 AM [facility] HISTORICAL RESULTS 06/30/2017 1:40 AM CDT 06/30/2017 1:51 AM T Narrative [facility] HISTORICAL RESULTS - 06/30/2017 1:59 AM CDT us Aleksander Burns MD LAB URINE ORDERABLES Final Re sult [facility] HISTORICAL RESULTS * Strep pneumoniae antigen, urine (06/30/2017 1:40 AM CDT) Ur Strep pneumoniae Ag NEGATIVE NEGATIVE 06/30/2017 2:11 AM CDT [facility] HISTORICAL RESULTS 06/30/2017 1:40 AM CDT 06/30/2017 1:51 AM CDT [facility] HISTORICAL RESULTS - 06/30/2017 2:11 AM CDT Collected By ra ?? Urine collection method Clean catch Aleksander Burns MD LAB MICROBIOLOGY - GENERAL OR DERABLES Final Result Performing Organization Address [facility] de Phone Number [facility] HISTORICAL RESULTS * Legionella pneumophilia antigen, urine (06/30/2017 1:40 AM CDT) URINE LEGIONELLA PNEUMO AG Negative Negative 07/01/2017 2:34 PM CDT [facility] HISTORICAL RESULTS Comment: Sample is negative for the presence of L. pneumophila ?? serogroup 1 antigen in urine, suggesting no recent or ?? current infection. Legionnaires' Disease cannot be ruled ?? out since other serogroups and species may also cause ?? disease. ?? INTERPRETIVE INFORMATION: Legionella pneumophila Antigen, ?? Urine ?? This assay detects Legionella pneumophila serogroup one (1) ?? antigen. ?? Performed by [employer], ?? [address] [place] [id number] ?? [email or web address], Macario Dior MD, Lab. Director ?? 06/30/2017 1:40 AM CDT 06/30/2017 1:51 AM CDT [facility] HISTORICAL RESULTS - 07/01/2017 2:34 PM CDT Collected By:ra ?? Urine collection method Clean catch Aleksander Burns MD LAB MICROBIOLOGY - GENERAL OR DERABLES Final Result Performing Organization Address [facility] de Phone Number [facility] HISTORICAL RESULTS * Troponin I (06/30/2017 12:25 AM CDT) Troponin I < 0.300 0.000 - 0.300 ng/mL 06/30/2017 1:03 AM CDT [facility] HISTORICAL RESULTS Comment: Reference using PRITESH Chemiluminescence ? Negative: Repeat in 4-6 hours as indicated. 06/30/2017 12:2 5 AM CDT 06/30/2017 12:36 AM CDT Narrative [facility] HISTORICAL RESULTS - 06/30/2017 1:03 AM CDT us Agustin ARECHIGA LAB BLOOD ORDERABLES Final Res ult [facility] HISTORICAL RESULTS * NM Pulmonary Ventilation and Perfusion Imaging (06/30/2017 12:00 AM CDT) Anatomical Region Laterality Modality Body N/A Nuclear Medicine 06/30/2017 Impressions 06/30/2017 11:48 AM CDT ??Low probability for acute pulmonary embolism. THIS IS AN ELECTRONICALLY VERIFIED FINAL REPORT 06/30/2017 11:45 AM - Electronically signed by Fili Hernandez M.D. CH: CH D: ??06/30/2017 11:45 AM T: ??06/30/2017 11:45 AM Report ID: [id number] Reading Location: ??[id number] [EOD] Narrative 06/30/2017 11:48 AM CDT EXAM DESCRIPTION: ??Lung Scan VQ Vent/Perf COMPLETED DATE/TIME: ??06/30/2017 11:03 am RADIOPHARMACEUTICAL: ??11 mCi Xe-133 gas by inhalation and 6 mCi Tc-99m MAA via a left antecubital IV site REASON FOR STUDY: ??Chest pain shortness of breath for 1 week. TECHNIQUE: ??Standard ventilation perfusion scintigrams were obtained. COMPARISON: ??No prior V/Q scan. ??Correlation with chest radiograph 8:45 p.m. the day earlier. ??Correlation with CT angiography chest 06/29/2017. FINDINGS: Ventilation images show slightly heterogeneous distribution of radiotracer, greater radiotracer uptake is seen in the right lung with slight asymmetric air trapping. ??Perfusion images show no mismatched segmental or subsegmental perfusion defect. Procedure Note Provider, Casi, - 07/25/2020 EXAM DESCRIPTION: Lung Scan VQ Vent/Perf COMPLETED DATE/TIME: 06/30/2017 11:03 am RADIOPHARMACEUTICAL: 11 mCi Xe-133 gas by inhalation and 6 mCi Tc-99m MAAvia a left antecubital IV site REASON FOR STUDY: Chest pain shortness of breath for 1 week. TECHNIQUE: Standard ventilation perfusion scintigrams were obtained. COMPARISON: No prior V/Q scan. Correlation with chest radiograph 8:45p.m. the day earlier. Correlation with CT angiography chest 06/29/2017. FINDINGS: Ventilation images show slightly heterogeneous distribution ofradiotracer, greater radiotracer uptake is seen in the right lung with slightasymmetric air trapping. Perfusion images show no mismatched segmental orsubsegmental perfusion defect. IMPRESSION: Low probability for acute pulmonary embolism. THIS IS AN ELECTRONICALLY VERIFIED FINAL REPORT 06/30/2017 11:45 AM - Electronically signed by Fili Hernandez M.D. CH: Report ID: [id number] Reading Location: [id number] [EOD] us Aleksander Burns MD IMG NM PROCEDURES Final Resul t * Microbiology Specimen Report (Converted) (06/29/2017 9:43 PM CDT) 06/29/2017 9:43 PM CDT 06/29/2017 9:46 PM CDT [facility] HISTORICAL RESULTS - 06/29/2017 9:43 PM CDT Microbiology Specimen Report (Converted) SPECIMEN [id number] ?? COLLECTED: 2017-06-29 21:43:00 [id number] ?? REQ#: [id number] REQUESTING DR: Aubree العراقي NP ?? SOURCE: BLOOD ?? SP DESC: COMMENT: Line Draw by RN ? BC Peripheral Draw ?? --- PROCEDURE --- ?--- RESULT --- ?? CULTURE BLOOD ADULT (SET OF 2) ??(Final) ??- ??Performed at [facility] ?* NO GROWTH DAY 5 - [facility] ? [address] ? [place] [address] ? James Manriquez MD Procedure Note 05/29/2018 Microbiology Specimen Report (Converted) SPECIMEN [id number] COLLECTED: 2017-06-29 21:43:00 [id number] REQ#:[id number] REQUESTING DR: Aubree العراقي NP SOURCE: BLOOD SP DESC: COMMENT: Line Draw by RN BC Peripheral Draw --- PROCEDURE --- --- RESULT --- CULTURE BLOOD ADULT (SET OF 2) (Final) - Performed at [facility] * NO GROWTH DAY 5 - [place] [address] James Manriquez MD Aubree العراقي NP LAB BLOOD ORDERABLES Final Resu lt [facility] HISTORICAL RESULTS * Microbiology Specimen Report (Converted) (06/29/2017 9:34 PM CDT) 06/29/2017 9:34 PM CDT 06/29/2017 9:39 PM CDT Narrative [facility] HISTORICAL RESULTS - 06/29/2017 9:34 PM CDT Microbiology Specimen Report (Converted) SPECIMEN [id number] ?? COLLECTED: 2017-06-29 21:34:00 [id number] ?? REQ#: [id number] REQUESTING DR: Aubree العراقي NP ?? SOURCE: BLOOD ?? SP DESC: COMMENT: Line Draw by RN ?? --- PROCEDURE --- ?--- RESULT --- ?? CULTURE BLOOD ADULT (SET OF 2) ??(Final) ??- ??Performed at [facility] ?* NO GROWTH DAY 5 - [facility] ? [address] ? [place] [address] ? James Manriquez MD Procedure Note 05/29/2018 Microbiology Specimen Report (Converted) SPECIMEN [id number] COLLECTED: 2017-06-29 21:34:00 [id number] REQ#:[id number] REQUESTING DR: Aubree العراقي NP SOURCE: BLOOD SP DESC: COMMENT: Line Draw by RN --- PROCEDURE --- --- RESULT --- CULTURE BLOOD ADULT (SET OF 2) (Final) - Performed at [facility] * NO GROWTH DAY 5 - [facility] [address] [place] [address] James Manriquez MD us Aubree العراقي NP LAB BLOOD ORDERABLES Final Resu lt [facility] HISTORICAL RESULTS * Lactate (06/29/2017 9:33 PM CDT) [facility] L-Lactate 1.4 mmol/L 06/29/2017 10:16 PM CDT [facility] HISTORICAL RESULTS Comment:Lactate Reference Ra nge: 0.5 - 2.2 mmol/L 06/29/2017 9:33 PM CDT 06/29/2017 9:39 PM CDT Narrative [facility] HISTORICAL RESULTS - 06/29/2017 10:16 PM CDT NO ESTEVES TOP IN LAB. PLEASE DRAW ON ICE WELL. ?? Historical Provider LAB BLOOD ORDERABLES Christen l Result [facility] HISTORICAL RESULTS * Troponin I (06/29/2017 9:33 PM CDT) [facility] Troponin I < 0.300 0.000 - 0.300 ng/mL 06/29/2017 10:13 PM CDT [facility] HISTORICAL RESULTS Comment: Reference using PRITESH Chemiluminescence ? Negative: Repeat in 4-6 hours as indicated. 06/29/2017 9:33 PM CDT 06/29/2017 9:39 PM CDT Narrative [facility] HISTORICAL RESULTS - 06/29/2017 10:13 PM CDT us Agustin ARECHIGA LAB BLOOD ORDERABLES Final Res ult Performing Organization Address [facility] Co de Phone Number [facility] HISTORICAL RESULTS * T4, free (06/29/2017 4:43 PM CDT) [facility] Free T4 1.05 0.93 - 1.70 ng/dL 06/29/2017 10:02 PM CDT [facility] HISTORICAL RESULTS 06/29/2017 4:43 PM CDT 06/29/2017 4:50 PM CDT Agustin ARECHIGA LAB BLOOD ORDERABLES Final Res ult Performing Organization Address [facility] Phone Number [facility] HISTORICAL RESULTS * TSH (06/29/2017 4:43 PM CDT) [facility] TSH 1.47 0.27 - 4.20 uIU/mL 06/29/2017 10:02 PM CDT [facility] HISTORICAL RESULTS 06/29/2017 4:43 PM CDT 06/29/2017 4:50 PM CDT Agustin ARECHIGA LAB BLOOD ORDERABLES Final Res ult Performing Organization Address [facility] Number [facility] HISTORICAL RESULTS * (ABNORMAL) CRP (acute phase) (06/29/2017 4:43 PM CDT) [facility] C-Reactive Protein 158.7(H) 0.0 - 4.9 mg/L 06/29/2017 10:19 PM CDT [facility] HISTORICAL RESULTS 06/29/2017 4:43 PM CDT 06/29/2017 4:50 PM CDT Agustin ARECHIGA LAB BLOOD ORDERABLES Final Res ult Performing Organization Address [facility] de Phone Number [facility] HISTORICAL RESULTS * Phosphorus (06/29/2017 4:43 PM CDT) [facility] Phosphorus 3.3 2.5 - 4.5 mg/dL 06/29/2017 10:02 PM CDT [facility] HISTORICAL RESULTS 06/29/2017 4:43 PM CDT 06/29/2017 4:50 PM CDT Agustin ARECHIGA LAB BLOOD ORDERABLES Final Res ult Performing Organization Address [facility] Co de Phone Number [facility] HISTORICAL RESULTS * (ABNORMAL) Magnesium (06/29/2017 4:43 PM CDT) Magnesium 1.4(L) 1.6 - 2.6 mg/dL 06/29/2017 10:02 PM CDT [facility] HISTORICAL RESULTS Comment:Magnesium sulfate th erapy: 3.0-9.1 mg/dL 06/29/2017 4:43 PM CDT 06/29/2017 4:50 PM CDT Agustin ARECHIGA LAB BLOOD ORDERABLES Final Res ult Performing Organization Address [facility] Co de Phone Number [facility] HISTORICAL RESULTS * Creatine kinase (CK), total (06/29/2017 4:43 PM CDT) Creatine Kinase 50 20 - 180 U/L 06/29/2017 10:02 PM CDT [facility] HISTORICAL RESULTS 06/29/2017 4:43 PM CDT 06/29/2017 4:50 PM CDT Agustin ARECHIGA LAB BLOOD ORDERABLES Final Res ult Performing Organization Address [facility] de Phone Number [facility] HISTORICAL RESULTS * PROCALCITONIN Pre-antibiotic (06/29/2017 4:43 PM CDT) Procalcitonin 0.10 0.0 - 0.24 ng/mL 06/29/2017 8:50 PM CDT [facility] HISTORICAL RESULTS Comment: Guidelines for use with Community Acquired Pneumonia(CAP)- ONLY: ?? <0.1 ng/mL: Use of antibiotics is STRONGLY discouraged ?? 0.1-0.24 ng/mL: Use of antibiotics is discouraged ?? 0.25-0.5 ng/mL: Use of antibiotics is encouraged ?? >0.5 ng/mL: Use of antibiotics is STRONGLY encouraged ?? Recommend repeating every 2-3 days if initial PCT >0.24 06/29/2017 4:43 PM CDT 06/29/2017 4:50 PM CDT us Agustin ARECHIGA LAB BLOOD ORDERABLES Final Res ult [facility] HISTORICAL RESULTS * TNI with LIPID PANEL (06/29/2017 4:43 PM CDT) [facility] Troponin I < 0.300 0.000 - 0.300 ng/mL Comment: Reference using PRITESH Chemiluminescence ? Negative: Repeat in 4-6 hours as indicated. Triglycerides 116 0 - 199 mg/dL Comment:12 hr pc highly ángel mmended for Triglyceride Cholesterol 173 0 - 199 mg/dL 06/29/2017 5:19 PM [facility] HISTORICAL RESULTS Comment: Borderline: ??200-239 High Risk: ?? >239 HDL Cholesterol 66 mg/dL 8 5:19 PM [facility] HISTORICAL RESULTS Comment: Reference Ranges: ? Males: >=40 mg/dL ? Females: >=50 mg/dL LDL Cholesterol, Calc 84 0 - 130 mg/dL 06/29/2017 5:19 PM [facility] HISTORICAL RESULTS Comment:High Risk > 159 mg/d L Cholesterol/HDL Ratio 2.6 06/29/2017 5:19 PM [facility] HISTORICAL RESULTS Comment: Cholesterol / HDL Ratio 3.5:1 or less is desirable. Cholesterol / HDL Ratio greater than 5:1 is considered higher risk for developing heart disease. 06/29/2017 4:43 PM CDT 06/29/2017 4:50 PM CDT us Agustin ARECHIGA LAB BLOOD ORDERABLES Final Res ult [facility] HISTORICAL RESULTS * (ABNORMAL) Comprehensive metabolic panel (06/29/2017 4:43 PM CDT) Sodium 134(L) 135 - 145 mmol/L 06/29/2017 5:19 PM CDT [facility] HISTORICAL RESULTS Potassium 4.3 3.3 - 5.1 mmol/L Chloride 96 96 - 108 mmol/L Carbon Dioxide 29 22 - 32 mmol/L Anion Gap 9 7 - 16 Glucose 161(H) 70 - 100 mg/dL BUN 13 8 - 23 mg/dL Creatinine 1.2(H) 0.5 - 1.1 mg/dL Comment: NOTE: Estimated GFR (Cockroft-Gault) will NOT be calculated unless patient Height and Weight were entered. Also, Kidney Disease Stage (GFR) and Estimated GFR (Cockroft-Gault) will NOT be calculated if Creatinine result is <0.2. Kidney Disease Stage 47 mL/MIN 06/29/2017 5:19 PM [facility] HISTORICAL RESULTS Comment: NOTE; ??The GFR is an estimated value using the creatinine, sex, age, and race of the patient. THE Estimated Kidney Disease GFR is validated for AGES 18-70 YEARS STAGE ?mL/Min ?DESCRIPTION ??1 ?90 mL/min or more ?Normal or elevated GFR ??2 ? 60-89 mL/min ?Mildly decreased GFR ??3 ? 30-59 mL/min ?Moderately decreased GFR ??4 ? 15-29 mL/min ?Severely decreased GFR ??5 ? <15 mL/min ? Kidney failure or on dialysis @ Est GFR (Cockcroft-G) 46 ml/MIN 06/29/2017 5:19 PM [facility] HISTORICAL RESULTS Comment: Estimated GFR(Cockroft-Gault)is used to calculate patient medication dosage Calcium 10.5(H) 8.8 - 10.2 mg/dL 06/29/2017 5:19 PM [facility] HISTORICAL RESULTS Total Protein 7.0 6.4 - 8.3 g/dL 06/29/2017 5:19 PM [facility] HISTORICAL RESULTS Albumin 3.5 3.5 - 5.2 g/dL 06/29/2017 5:19 PM [facility] HISTORICAL RESULTS Globulin 3.5 2.3 - 3.5 gm/dL 06/29/2017 5:19 PM [facility] HISTORICAL RESULTS Albumin/Globulin Ratio 1.0(L) 1.1 - 1.8 06/29/2017 5:19 PM [facility] HISTORICAL RESULTS Total Bilirubin 0.3 0.0 - 1.2 mg/dL 06/29/2017 5:19 PM [facility] HISTORICAL RESULTS AST 17 0 - 32 U/L 06/29/2017 5:19 PM [facility] HISTORICAL RESULTS ALT 12 0 - 33 U/L 06/29/2017 5:19 PM [facility] HISTORICAL RESULTS Alkaline Phosphatase 62 35 - 104 U/L 06/29/2017 5:19 PM [facility] HISTORICAL RESULTS 06/29/2017 4:43 PM CDT 06/29/2017 4:50 PM CDT us Agustin ARECHIGA LAB BLOOD ORDERABLES Final Res ult Performing Organization Address [facility] Co de Phone Number [facility] HISTORICAL RESULTS * (ABNORMAL) B-type natriuretic peptide (06/29/2017 4:43 PM CDT) Pathologist [facility] B-Natriuretic Peptide 108(H) 0 - 100 pg/mL 06/29/2017 5:24 PM CDT [facility] HISTORICAL RESULTS Comment: B Natriutetic Peptide METHOD: ??[employer] Centaur XP using AAKASH. Decision threshold of 100 pg/mL has been demonstrated to provide the maximal combination of sensitivity, specificity, and predictive value for the diagnosis of congestive heart failure (CHF). ??Virtually all patients with no evidence of CHF have BNP values <100 pg/mL. ?? NOTE: ??Nesiritide (Natrecor) interferes with the BNP assay. BNP result will be invalid if drawn within 2 hours of bolus or infusion of nesiritide. 06/29/2017 4:43 PM CDT 06/29/2017 4:50 PM CDT us Agustin ARECHIGA LAB BLOOD ORDERABLES Final Res ult Performing Organization Address [facility] de Phone Number [facility] HISTORICAL RESULTS * (ABNORMAL) Erythrocyte sedimentation rate (06/29/2017 4:42 PM CDT) [facility] ESR 60(H) 0 - 10 mm/hr 06/29/2017 9:20 PM CDT [facility] HISTORICAL RESULTS 06/29/2017 4:42 PM CDT 06/29/2017 4:50 PM CDT Agustin ARECHIGA LAB BLOOD ORDERABLES Final Res ult Performing Organization Address [facility] Co de Phone Number [facility] HISTORICAL RESULTS * (ABNORMAL) aPTT (06/29/2017 4:42 PM CDT) [facility] APTT 67(H) 26 - 33 SECONDS 06/29/2017 8:42 PM CDT [facility] HISTORICAL RESULTS 06/29/2017 4:42 PM CDT 06/29/2017 4:50 PM CDT Agustin ARECHIGA LAB BLOOD ORDERABLES Final Res ult Performing Organization Address [facility] de Phone Number [facility] HISTORICAL RESULTS * (ABNORMAL) Protime-INR (06/29/2017 4:42 PM CDT) Pathologist [facility] PT 30.0(H) 11.8 - 14.5 SECONDS 06/29/2017 8:40 PM CDT [facility] HISTORICAL RESULTS INR 2.83 06/29/2017 8:40 PM CDT [facility] HISTORICAL RESULTS Comment: Recommended Therapeutic range for Oral Anticoagulant Therapy No anti-coagulation therapy ? Normal Range: ?0.8-1.4 Anti-coagulation therapy ? Low intensity therapy ?2.0-3.0 ? High intensity therapy ?? 2.5-3.5 Critical Value ? Greater than or equal to 5.0 Patients should be monitored for serious bleeding. ?? 06/29/2017 4:42 PM CDT 06/29/2017 4:50 PM CDT Result [facility] Agustin ARECHIGA LAB BLOOD ORDERABLES Final Res ult Performing Organization Address [facility] de Phone Number [facility] HISTORICAL RESULTS * (ABNORMAL) D-dimer, quantitative (06/29/2017 4:42 PM CDT) Pathologist [facility] D-Dimer, Quantitative 1.08(H) 0.00 - 0.50 FEUug/ml 06/29/2017 5:58 PM CDT [facility] HISTORICAL RESULTS Comment: Studies indicate that a D-Dimer level of <0.50 FEUug/ml has a >95% negative predictive value for DVT,DIC,PE and other embolus conditions. ??Levels >0.50 FEUug/ml may be present in a wide variety of conditions and should not be considered diagnostic of any disease state. 06/29/2017 4:42 PM CDT 06/29/2017 4:50 PM CDT us Agustin ARECHIGA LAB BLOOD ORDERABLES Final Res ult [facility] HISTORICAL RESULTS * (ABNORMAL) CBC with auto differential (06/29/2017 4:42 PM CDT) WBC 11.6(H) 3.5 - 10.5 x10 3/ul 06/29/2017 4:54 PM CDT [facility] [employer] HISTORICAL RESULTS RBC 3.47(L) 3.76 - 4.80 x10 6/ul 06/29/2017 4:54 PM CDT [facility] [employer] HISTORICAL RESULTS Hemoglobin 11.1 11.0 - 15.0 g/dL 06/29/2017 4:54 PM CDT [facility] [employer] HISTORICAL RESULTS Hct 34.1 33.0 - 43.0 % 06/29/2017 4:54 PM CDT [facility] MCV 98.3(H) 80.0 - 97.0 fl 06/29/2017 4:54 PM CDT [facility] [facility] [place] HISTORICAL RESULTS MCH 32.0(H) 27.0 - 31.2 pg 06/29/2017 4:54 PM CDT [facility] [employer] HISTORICAL RESULTS MCHC 32.6 31.8 - 35.4 g/dl 06/29/2017 4:54 PM CDT [facility] [employer] HISTORICAL RESULTS RDW 12.5 11.6 - 14.8 % 06/29/2017 4:54 PM CDT [facility] [employer] HISTORICAL RESULTS Plt Count 346 150 - 450 X10 3/ul 06/29/2017 4:54 PM CDT [facility] [employer] HISTORICAL RESULTS MPV 11.9(H) 7.4 - 10.4 fl 06/29/2017 4:54 PM CDT [facility] [employer] HISTORICAL RESULTS Neut % 73.4 37.0 - 85.0 % 06/29/2017 4:54 PM CDT [facility] [employer] HISTORICAL RESULTS Immature Gran % 0.3 0.0 - 3.0 % 06/29/2017 4:54 PM CDT [facility] [employer] HISTORICAL RESULTS Lymph % 15.2 5.0 - 45.0 % 06/29/2017 4:54 PM CDT [facility] [place] HISTORICAL RESULTS Loving % 10.3 3.0 - 15.0 % Eos % 0.5 0.0 - 7.0 % 06/29/2017 4:54 PM [facility] HISTORICAL RESULTS Baso % 0.3 0.0 - 2.0 % Absolute Neuts (auto) 8.5 1.7 - 8.7 x10 3/ul Immature Gran # 0.0 0.0 - 0.3 x10 3/ul 06/29/2017 4:54 PM [facility] HISTORICAL RESULTS Absolute Lymphs (auto) 1.8 0.2 - 4.6 x10 3/ul 06/29/2017 4:54 PM [facility] HISTORICAL RESULTS Absolute Monos (auto) 1.2 0.1 - 1.5 x10 3/ul Absolute Eos (auto) 0.1 0.0 - 0.7 x10 3/ul Absolute Basos (auto) 0.0 0.0 - 0.2 x10 3/ul 06/29/2017 4:54 PM [facility] HISTORICAL RESULTS Nucleat RBC Rel Count 0.0 0 - 3 #/100WBC 06/29/2017 4:54 PM [facility] HISTORICAL RESULTS Absolute Nucleated RBC 0.00 x10 3/ul 06/29/2017 4:54 PM [facility] HISTORICAL RESULTS Absolute Neutrophils 8500(H) 200 - 8000 /ul 06/29/2017 4:54 PM [facility] HISTORICAL RESULTS 06/29/2017 4:42 PM CDT 06/29/2017 4:50 PM CDT us Agustin ARECHIGA LAB BLOOD ORDERABLES Final Res ult [facility] HISTORICAL RESULTS * XR Chest Pa Lateral 2 Views (06/29/2017 12:00 AM CDT) Anatomical Region Laterality Modality Body, Chest N/A Radiographic Jennifer ging 06/29/2017 Impressions 06/29/2017 8:56 PM CDT ??Small bilateral pleural effusions. THIS IS AN ELECTRONICALLY VERIFIED FINAL REPORT 06/29/2017 8:53 PM - Electronically signed by Juan Pablo Chery M.D. RW: TROY D: ??06/29/2017 8:53 PM T: ??06/29/2017 8:53 PM Report ID: [id number] Reading Location: ??[id number] [EOD] Narrative 06/29/2017 8:56 PM CDT EXAM DESCRIPTION: ??Chest 2 Views COMPLETED DATE/TIME: ??06/29/2017 REASON FOR STUDY: ??SOB AND WEAKNESS X 1 WEEK TECHNIQUE: ??Frontal and lateral radiographic views of the chest acquired. COMPARISON: ??06/29/2017 FINDINGS: LUNGS/PLEURA: No acute infiltrate. ??Small bilateral pleural effusions. HEART/MEDIASTINUM: Heart size is normal. Normal mediastinal and hilar contours. HARDWARE/LINES/TUBES: None. BONES: No acute findings. OTHER: No other significant finding. Procedure Note Provider, MD Casi - 07/25/2020 EXAM DESCRIPTION: Chest 2 Views COMPLETED DATE/TIME: 06/29/2017 REASON FOR STUDY: SOB AND WEAKNESS X 1 WEEK TECHNIQUE: Frontal and lateral radiographic views of the chestacquired. COMPARISON: 06/29/2017 FINDINGS: LUNGS/PLEURA: No acute infiltrate. Small bilateral pleural effusions. HEART/MEDIASTINUM: Heart size is normal. Normal mediastinal and hilarcontours. HARDWARE/LINES/TUBES: None. BONES: No acute findings. OTHER: No other significant finding. IMPRESSION: Small bilateral pleural effusions. THIS IS AN ELECTRONICALLY VERIFIED FINAL REPORT 06/29/2017 8:53 PM - Electronically signed by Juan Pablo SIMMONS: TROY Report ID: [id number] Reading Location: [id number] [EOD] us Aubree العراقي ENVIRONMENTAL HEALTH TECHNOLOGIST IMG XR PROCEDURES Final Result * XR Chest 1 View (06/29/2017 12:00 AM CDT) Anatomical Region Laterality Modality Body, Chest N/A Radiographic Jennifer ging 06/29/2017 Impressions 06/29/2017 5:35 PM CDT ?? 1.There is cardiomegaly with no acute pulmonary edema. 2.Vague opacity left base may reflect soft tissue overlap and portable technique. ??Subtle infiltrate or effusion difficult to exclude. ??Standard PA and lateral chest can be obtained as warranted in follow-up. THIS IS AN ELECTRONICALLY VERIFIED FINAL REPORT 06/29/2017 5:32 PM - Electronically signed by Jose Drummond M.D. MJ: CHLOÉ D: ??06/29/2017 5:32 PM T: ??06/29/2017 5:32 PM Report ID: [id number] Reading Location: ??[id number] [EOD] Narrative 06/29/2017 5:35 PM CDT EXAM DESCRIPTION: ??Chest 1 View COMPLETED DATE/TIME: ??06/29/2017 5:00 pm REASON FOR STUDY: ??Weakness and shortness of breath over the past week. TECHNIQUE: ??Frontal radiographic view of the chest acquired. COMPARISON: ??06/04/2015 FINDINGS: LUNGS/PLEURA: Normal pulmonary vasculature. ??There is vague opacity of the left base. ??This may reflect small effusion or infiltrate. ??This may also reflect soft tissue overlap given portable technique and cardiomegaly. HEART/MEDIASTINUM: Stable cardiomegaly. ??Senescent change of the aortic arch. HARDWARE/LINES/TUBES: Prior median sternotomy. BONES: No acute findings. OTHER: Surgical clip is seen just inferior to the mid shaft of the left clavicle. Procedure Note Provider, MD Casi - 07/25/2020 EXAM DESCRIPTION: Chest 1 View COMPLETED DATE/TIME: 06/29/2017 5:00 pm REASON FOR STUDY: Weakness and shortness of breath over the past week. TECHNIQUE: Frontal radiographic view of the chest acquired. COMPARISON: 06/04/2015 FINDINGS: LUNGS/PLEURA: Normal pulmonary vasculature. There is vague opacity of the left base. This may reflect small effusion or infiltrate. This may also reflect soft tissue overlap given portable technique and cardiomegaly. HEART/MEDIASTINUM: Stable cardiomegaly. Senescent change of the aorticarch. HARDWARE/LINES/TUBES: Prior median sternotomy. BONES: No acute findings. OTHER: Surgical clip is seen just inferior to the mid shaft of the left clavicle. IMPRESSION: 1.There is cardiomegaly with no acute pulmonary edema. 2.Vague opacity left base may reflect soft tissue overlap and portable technique. Subtle infiltrate or effusion difficult to exclude. StandardPA and lateral chest can be obtained as warranted in follow-up. THIS IS AN ELECTRONICALLY VERIFIED FINAL REPORT 06/29/2017 5:32 PM - Electronically signed by Jose Drummond M.D. MJ: CHLOÉ Report ID: [id number] Reading Location: [place] [id number] [EOD] Agustin ARECHIGA IMG XR PROCEDURES Final Result * CTA Chest W IV Contrast - PE (06/29/2017 12:00 AM CDT) Anatomical Region Laterality Modality Body N/A Computed Tomogra phy 06/29/2017 Impressions 06/29/2017 9:02 PM CDT ?? 1.Nondiagnostic examination for acute pulmonary embolism secondary to poor bolus timing on the initial contrast injection and then contrast extravasation into the right antecubital fossa on the subsequent contrast injection. 2.No acute pulmonary abnormality. 3.Mild bibasilar atelectasis. 4.Mild cardiomegaly. 5.Chronic appearing compression fracture of T6. Findings of the nondiagnostic examination and contrast extravasation were discussed in person with the ordering provider, Aubree العراقي, by Dr. Lewis at approximately 8:45 p.m. on 06/29/2017. THIS IS AN ELECTRONICALLY VERIFIED FINAL REPORT 06/29/2017 8:58 PM - Electronically signed by Reji Lewis M.D. HL: JUAN D: ??06/29/2017 8:58 PM T: ??06/29/2017 8:58 PM Report ID: [id number] Reading Location: ??[id number] [EOD] Narrative 06/29/2017 9:02 PM CDT EXAM DESCRIPTION: ??CTA Chest W IV Contrast - PE COMPLETED DATE/TIME: ??06/29/2017 8:46 pm REASON FOR STUDY: ??Increased shortness of breath and dizziness for 1 day. TECHNIQUE: ??CT angiogram of the chest performed with intravenous contrast using helical scanning technique with dynamic intravenous contrast injection. Reconstructed coronal and sagittal MPR images reviewed. All images stored on PACS. 3D MIP images were reviewed. Automated exposure control was used as a dose optimization technique for this examination. There is extravasation of 80 mL of contrast material into the right antecubital fossa. ??The patient was examined by myself, Dr. Lewis, on the CT gantry. ??There was soft tissue swelling in the right antecubital fossa with mild bruising. ??There is good capillary refill and there is no paresthesias. ?? Cold compress was given to the patient. CONTRAST TYPE/DOSE: ??80 mL of Optiray 350 contrast were intravenously injected at the right antecubital fossa. ??The initial scan was nondiagnostic for an acute pulmonary thromboembolism due to poor bolus timing, therefore an additional 80 mL of Optiray 350 was injected through the right antecubital fossa, however on the 2nd injection there was contrast extravasation into the right antecubital fossa and no additional contrast was administered intravenously. ??The patient therefore received a total of 160 mL of Optiray 350. COMPARISON: ??No prior available. FINDINGS: VASCULATURE: Examination is nondiagnostic for an acute pulmonary thromboembolism due to poor bolus timing and then contrast extravasation on the other injection. ??Postoperative change of aortic valve replacement. ?? Thoracic aorta is normal in caliber with atherosclerotic calcifications present. LUNGS: No nodules or masses. No pneumonia. ??Mild bibasilar dependent atelectasis. PLEURA: No effusion. No pneumothorax. MEDIASTINUM/JACKIE: No identified masses or abnormal nodes. HEART: Mild cardiomegaly. ??No pericardial effusion. AXILLA: No adenopathy. CHEST WALL: No masses. ??No subcutaneous air. HARDWARE/LINES/TUBES: None. UPPER ABDOMEN: No significant abnormality. MUSCULOSKELETAL: Technically age indeterminate, however chronic appearing compression deformity is present of T6. ??There is a sclerotic focus in the T5 vertebral body, presumably a bone island. OTHER: No significant abnormality. Procedure Note Provider, MD Casi - 07/25/2020 EXAM DESCRIPTION: CTA Chest W IV Contrast - PE COMPLETED DATE/TIME: 06/29/2017 8:46 pm REASON FOR STUDY: Increased shortness of breath and dizziness for 1day. TECHNIQUE: CT angiogram of the chest performed with intravenous contrast using helical scanning technique with dynamic intravenous contrastinjection. Reconstructed coronal and sagittal MPR images reviewed. All images storedon PACS. 3D MIP images were reviewed. Automated exposure control was used asa dose optimization technique for this examination. There is extravasation of 80 mL of contrast material into the right antecubital fossa. The patient was examined by myself, Dr. Lewis, onthe CT gantry. There was soft tissue swelling in the right antecubital fossawith mild bruising. There is good capillary refill and there is noparesthesias. Cold compress was given to the patient. CONTRAST TYPE/DOSE: 80 mL of Optiray 350 contrast were intravenouslyinjected at the right antecubital fossa. The initial scan was nondiagnostic for an acute pulmonary thromboembolism due to poor bolus timing, therefore an additional 80 mL of Optiray 350 was injected through the right antecubital fossa, however on the 2nd injection there was contrast extravasation intothe right antecubital fossa and no additional contrast was administered intravenously. The patient therefore received a total of 160 mL ofOptiray 350. COMPARISON: No prior available. FINDINGS: VASCULATURE: Examination is nondiagnostic for an acute pulmonary thromboembolism due to poor bolus timing and then contrast extravasationon the other injection. Postoperative change of aortic valve replacement. Thoracic aorta is normal in caliber with atherosclerotic calcifications present. LUNGS: No nodules or masses. No pneumonia. Mild bibasilar dependent atelectasis. PLEURA: No effusion. No pneumothorax. MEDIASTINUM/JACKIE: No identified masses or abnormal nodes. HEART: Mild cardiomegaly. No pericardial effusion. AXILLA: No adenopathy. CHEST WALL: No masses. No subcutaneous air. HARDWARE/LINES/TUBES: None. UPPER ABDOMEN: No significant abnormality. MUSCULOSKELETAL: Technically age indeterminate, however chronic appearing compression deformity is present of T6. There is a sclerotic focus in theT5 vertebral body, presumably a bone island. OTHER: No significant abnormality. IMPRESSION: 1.Nondiagnostic examination for acute pulmonary embolism secondary to poor bolus timing on the initial contrast injection and then contrastextravasation into the right antecubital fossa on the subsequent contrast injection. 2.No acute pulmonary abnormality. 3.Mild bibasilar atelectasis. 4.Mild cardiomegaly. 5.Chronic appearing compression fracture of T6. Findings of the nondiagnostic examination and contrast extravasation were discussed in person with the ordering provider, Aubree العراقي, by at approximately 8:45 p.m. on 06/29/2017. THIS IS AN ELECTRONICALLY VERIFIED FINAL REPORT 06/29/2017 8:58 PM - Electronically signed by Reji Lewis M.D. HL: JUAN Report ID: [id number] Reading Location: [place] [address] [EOD] Aubree العراقي ENVIRONMENTAL HEALTH TECHNOLOGIST IMG CT PROCEDURES Final Result documented in this encounter Visit Diagnoses Diagnosis Sepsis (HCC) Atrial flutter (CMS/HCC) (HCC) Atrial flutter Type 2 diabetes mellitus with hyperglycemia (CMS/HCC) (HCC) Essential (primary) hypertension Unspecified essential hypertension Paroxysmal atrial fibrillation (CMS/HCC) (HCC) Atrial fibrillation Type 2 diabetes mellitus without complications (CMS/HCC) (HCC) Do not resuscitate Body mass index (BMI) of 38.0-38.9 in adult Obesity Obesity, unspecified Personal history of nicotine dependence Presence of prosthetic heart valve 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
--- OUTSIDE RECORDS SUMMARY | 2024-03-15 01:58 | XMS_ITS | Encounter Summary ---
Author Organization [facility] Address [address] [place] [address] Care Team Providers Care Plant Manager Name Role Phone Hong Holder MD Primary Care Provider [phone] Encounter Details Date Type Department Care Team (Late st Contact Info) Description 10/26/2017 Orders Only [facility] [address] [place] [address] ProviderCasi MD [address] [place] [id number] Social History Tobacco Use Types Packs/Day Years Used Date Smoking Tobacco: Never Smokeless Tobacco: Never Alcohol Use Standard Drinks/Week Comments No 0 (1 standard drink = 0.6 oz pur e alcohol) Comments Unknown Sex and Gender Information Value Date Recorded Sex Assigned at Not on file 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 Gender Identity Not on file Sexual Orientation Not on file documented as of this encounter Plan of Treatment Not on file documented as of this encounter Procedures Procedure Name Priority Date/Time Associated Diagnosis Comments LIPID PANEL Routine 06/29/2017 4:43 PM CDT documented in this encounter Results * Lipid panel (06/29/2017 4:43 PM CDT) SCRIBED Cholesterol, Total 173 0 - 200 EXTERNAL LAB SCRIBED HDL 66 40 - 100 EXTERNAL LAB SCRIBED LDL 84 0 - 100 EXTERNAL LAB SCRIBED Triglycerides 116 0 - 150 EXTERNAL LAB Blood specimen (specimen) us Historical Provider LAB BLOOD ORDERABLES Edit ed Result - Final EXTERNAL LAB documented in this encounter Visit Diagnoses Not on filedocumented in this encounter Care Teams Plant Manager Relationship Specialty Start Date End Date Hong Holder MD [address] [facility] [address] [place] [id number] PCP - General 06/06/16 01/11/20 documented as of this encounter
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
--- OUTSIDE RECORDS SUMMARY | 2024-03-15 01:58 | XMS_ITS | Encounter Summary ---
Author Organization [facility] Address [address] [place] [address] Care Team Providers Care Crew Car Driver Name Role Phone Hong Holder MD Primary Care Provider [phone] Reason for Visit * Reason Comments Follow-up 6 mo follow up on AV S, VAZQUEZ, TORRES, PAF * Cardiology (Routine) - Closed Specialty Diagnoses / Procedures Referred By Contac t Referred To Contact Cardiology Diagnoses Other chest pain Hong Holder MD Phone: tel: fax: [facility] [address] [place] [address] [address] [place] [id number] Phone: tel: fax: Referral ID Status Reason Start Date Expiration Date Visits Re quested Visits Authorized [id number] Closed 08/04/2017 08/16/2018 5 5 Encounter Details Date Type Department Care Team (Late st Contact Info) Description 02/17/2018 2:45 PM AIR QUALITY CHEMIST Office Visit [facility] [address] [place] [address] [place] [phone] Maurice Paredes MD [address] [facility] [address] [place] [address] Paroxysmal atrial flutter (CMS/HCC) (Primary Dx); Hypertensive heart disease with chronic diastolic congestive heart failure (CMS/HCC); VAZQUEZ on CPAP; H/O mechanical aortic valve replacement; Dyslipidemia associated with type 2 diabetes mellitus (CMS/HCC); Chronic anticoagulation; Myopathy Social History Tobacco Use Types Packs/Day Years Used Date Smoking Tobacco: Never Smokeless Tobacco: Never Alcohol Use Standard Drinks/Week Comments No 0 (1 standard drink = 0.6 oz pur e alcohol) Comments Unknown Sex and Gender Information Value Date Recorded Sex Assigned at Not on file Legal Sex Female 6:10 AM AIR QUALITY CHEMIST Gender Identity Not on file Sexual Orientation Not on file documented as of this encounter Last Filed Vital Signs Vital Sign Reading Time Taken Comments Blood Pressure 128/70 02/17/2018 2:38 PM AIR QUALITY CHEMIST Pulse 62 02/17/2018 2:38 PM AIR QUALITY CHEMIST Temperature - - Respiratory Rate - - Oxygen Saturation 91% 02/17/2018 2:38 PM AIR QUALITY CHEMIST Inhaled Oxygen Concentration - - Weight 86.2 kg (190 lb) 02/17/2018 2:38 PM AIR QUALITY CHEMIST Height 162.6 cm (5' 4 ) 02/17/2018 2:38 PM AIR QUALITY CHEMIST Body Mass Index 32.61 02/17/2018 2:38 PM AIR QUALITY CHEMIST documented in this encounter Progress Notes * Maurice Paredes MD - 02/17/2018 2:45 PM CST [facility] DATE OF VISIT: 02/17/2018 CHIEF COMPLAINT Chief Complaint Patient presents with ??? Follow-up 6 mo follow up on AVS, VAZQUEZ, TORRES, PAF HPI Radha Huynh is a 72 y.o. female with a PMHx of mechanical [...] past 5-6 months. Stress test 11/28/13 by [facility] for unclear reasons. She notes rare palpitations [...] Going to see PCP. 08/12/17 Admitted to [facility] in June due to SOB found to be in A.Fib and started on Diltiazem and Metoprolol. Was discharged still with TORRES then sxs continued to worsen and readmitted to [facility] in July. She was started on Sotalol [...] in cold weather. Denies dizziness/lightheadedness. Infrequent palps. MEDICAL HISTORY Past Medical History: Diagnosis Date ??? Adiposity Obesity ??? HX OTHER MEDICAL Sleep Apnea, CPAP ??? HX OTHER MEDICAL Diabetes Type II ??? Hypertension Hypertension Social History Substance Use Topics ??? Smoking status: Never Smoker ??? Smokeless tobacco: Never Used ??? Alcohol use No Family History Problem Relation Age of Onset ??? Heart attack Father Myocardial Infarction; Cause of : Myocardial Infarction MEDICATIONS HOME MEDICATIONS : alendronate (FOSAMAX) 70 mg tablet cholecalciferol (VITAMIN D-3) 1,000 unit ferrous sulfate 325 mg (65 mg of elemental iron) tablet fluticasone (FLONASE) 50 mcg/actuation nasal spray furosemide (LASIX) 40 mg tablet gabapentin (NEURONTIN) 300 mg capsule HYDROcodone-acetaminophen (LORCET 10-650) 10-650 mg per tablet magnesium oxide 400 mg capsule meclizine (ANTIVERT) 25 mg tablet metFORMIN (GLUCOPHAGE) 1,000 mg tablet omeprazole (PriLOSEC) [address] (PROTONIX) 40 mg EC tablet pioglitazone (ACTOS) 15 mg tablet polyethylene glycol (MIRALAX) 17 gram packet predniSONE (DELTASONE) 10 mg tablet tiZANidine (ZANAFLEX) 2 mg tablet venlafaxine 150 mg tablet extended release 24hr 24 hr tablet warfarin (COUMADIN) 10 mg tablet warfarin (COUMADIN) 2 mg tablet atorvastatin (LIPITOR) 10 mg tablet lisinopril (PRINIVIL,ZESTRIL) 10 mg tablet sotalol (BETAPACE) 80 mg tablet traZODone (DESYREL) 50 mg tablet ALLERGIES Allergies Allergen Reactions ??? Bacitracin ??? Benzalkonium ??? Gramicidin D ??? Hydrocortisone ??? Neomycin ??? Polymyxin B ??? Skin Cleanser REVIEW OF SYSTEMS Review of Systems Constitution: Positive for weakness, malaise/fatigue and weight loss. Negative for decreased appetite, diaphoresis, fever and night sweats. HENT: Negative for hearing loss and nosebleeds. Eyes: Negative for blurred vision and pain. Cardiovascular: Positive for leg swelling. Negative for chest pain, claudication, dyspnea on exertion, irregular heartbeat, near-syncope, orthopnea, palpitations and syncope. Respiratory: Positive for shortness of breath. Negative for cough, hemoptysis, snoring and wheezing. Endocrine: Negative for cold [...] excessive daytime sleepiness, dizziness, focal weakness, headaches, light-headedness and loss of balance. Psychiatric/Behavioral: Negative for altered mental status, depression and memory loss. The patientis not nervous/anxious. Allergic/Immunologic: Negative for environmental allergies. PHYSICAL EXAM Vitals BP 128/70 (BP Location: Right arm, Patient Position: Sitting) Pulse 62 Ht 162.6 cm (5' 4 ) Wt 86.2 kg (190 lb) SpO2 91% BMI 32.61 kg/m?? Weight: 86.2 kg (190 lb) Height: 162.6 cm (5' 4 ) Body mass index is 32.61 kg/m??. Physical Exam Constitutional: She is oriented [...] murmur is present with a grade of 2/6 [place] metallic S2 Pulmonary/Chest: Effort normal and breath sounds normal. No respiratory distress. She has no wheezes. She has no rales. She exhibits no tenderness. Healed median sternotomy Abdominal: Soft. Bowel sounds are normal. She [...] visit. Latest known visit with results is: Orders Only on 10/26/2017 Component Date Value Ref Range Status ??? SCRIBED Cholesterol, Total 06/29/2017 173 0 - 200 Final ??? SCRIBED HDL 06/29/2017 66 40 - 100 Final ??? SCRIBED LDL 06/29/2017 84 0 - 100 Final ??? SCRIBED Triglycerides 06/29/2017 116 0 - 150 Final Results for orders placed or performed in visit on 10/26/17 Lipid panel Result Value Ref Range SCRIBED Cholesterol, Total 173 0 - 200 SCRIBED HDL 66 40 - 100 SCRIBED LDL 84 0 - 100 SCRIBED Triglycerides 116 0 - 150 Personally reviewed EKG, Echocardiogram, stress test, and bloodwork/lipids and hospital records from [facility] 06/2017 and [facility] 07/2017. ASSESSMENT Diagnoses and all orders for this visit: Paroxysmal atrial flutter (CMS/HCC) (Primary) Hypertensive heart disease with chronic diastolic congestive heart failure (CMS/HCC) VAZQUEZ on CPAP H/O mechanical aortic valve replacement Dyslipidemia associated with type 2 diabetes mellitus (CMS/HCC) Chronic anticoagulation Myopathy PLAN/RECOMMENDATIONS 1. BP much improved on repeat check in the office surprisingly. Monitor BP on routine basis. Call with readings. Continue consistent cardiovascular exercise, weight loss, medication compliance, and low-sodium diet. 2. Lifestyle modification counseling performed. Weight loss, exercise, reduction in caloric intake. Congratulated on weight loss, encouraged consistent physical exercise. 3. Prophylactic ABx prior to dental/surgical procedures 4. Continue systemic A/C with warfarin goal INR 2-3 monthly checks or as directed. Monitor for bleeding. 5. No CHF sxs at present. Compensated. CHF counseling performed. Follow daily weight, less than 2 gdaily sodium intake, medication compliance. Call w/ wt gain >3lb in 24 hrs or worsening edema and/or TORRES. 6. DM managed by PCP 7. Personally reviewed lipids 06/29/17 LDL 84, not ideally controlled (nonfasting sample). Taking Atorvastatin now, but hold for 1-2 weeks due to worsening myalgias. Call in 1-2 weeks for further recommendations and not to remain off statin therapy indefinitely. Pt verbalized understanding and agreed. 8. 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 Will continue to monitor closely. 9. Stable, A. flutter controlled, maintaining SR on Sotalol. Continue current medical therapy and systemic anticoagulation for stroke risk reduction. CHADS2 Vasc score 3-4. 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 Follow up in the office in 3-4 months or sooner as needed. Thank you for allowing me the privilege of participating in the care this very pleasant patient. Please do not hesitate to contact me with any additional questions or concerns. Dilma Paredes MD, [facility] QUALITY CHEMIST documented in this encounter Plan of Treatment Not on file documented as of this encounter Visit Diagnoses Diagnosis Paroxysmal atrial flutter (CMS/HCC) (HCC)- Primary Hypertensive heart disease with chronic diastolic congestive heart failure (CMS/HCC) (HCC) VAZQUEZ on CPAP H/O mechanical aortic valve replacement Dyslipidemia associated with type 2 diabetes mellitus (HCC) Chronic anticoagulation Encounter for long-term (current) use of anticoagulants Myopathy Unspecified myopathy documented in this encounter Discontinued Medications Medication Sig Discontinue Reason Start Date End Da te atorvastatin (LIPITOR) 10 mg tablet Take 10 mg by mouth daily. Discontinued by another clinician 02/17/2018 lisinopril (PRINIVIL,ZESTRIL) 10 mg tablet take 1 tablet by oral route every day Discontinued by another clinician 09/12/2014 02/17/2018 sotalol (BETAPACE) 80 mg tablet Take 1 tablet (80 mg total) by mouth 2 (two) times a day. Discontinued by another clinician 08/12/2017 02/17/2018 traZODone (DESYREL) 50 mg tablet take 1 tablet by oral route every day as needed Discontinued by another clinician 08/15/2014 02/17/2018 documented as of this encounter Historical Medications * This list may reflect changes made after this encounter. alendronate (FOSAMAX) 70 mg tablet Take 70 mg by mouth every 7 days. Take in the morning with a full glass of water, on an empty stomach, and do not take anything else by mouth or lie down for the next 30 min. 02/08/2019 cholecalciferol (VITAMIN D-3) 1,000 unit Take 1,000 Units by mouth daily. 01/13/2020 predniSONE (DELTASONE) 10 mg tablet Take 10 mg by mouth daily. 08/03/2018 added in this encounter Care Teams Crew Car Driver Relationship Specialty Start Date End Date Hong Holder MD [address] [facility] [address] [place] [address] PCP - General 06/06/16 01/11/20 documented as of this encounter
--- OUTSIDE RECORDS SUMMARY | 2024-03-15 01:58 | XMS_ITS | Encounter Summary ---
Author Organization [facility] Address [address] [facility] [facility] [address] [place] [address] Care Team Providers Care Diagnostic Radiologic Technologist Name Role Phone Hong Holder MD Primary Care Provider [phone] Encounter Details Date Type Department Care Team (Late st Contact Info) Description 02/08/2018 Telephone [facility] [address] [facility] [address] [place] [phone] Maurice Paredes MD [address] [facility] [place] [address] [place] [address] Social History Tobacco Use Types Packs/Day Years Used Date Smoking Tobacco: Never Smokeless Tobacco: Never Alcohol Use Standard Drinks/Week Comments No 0 (1 standard drink = 0.6 oz pur e alcohol) Comments Unknown Sex and Gender Information Value Date Recorded Sex Assigned at Not on file Legal Sex Female 6:10 AM ASH HANDLER Gender Identity Not on file Sexual Orientation Not on file documented as of this encounter Miscellaneous Notes * Telephone Encounter - Johanna Quigley RN - 02/08/2018 2:23 PM ASH HANDLER Pt said she gets SOB in the cold air. She tried wearing a hospital mask, but still gets SOB. told her to try covering her mouth with scarf to warm the air. No edema, no weight gain, said she has lostweight. Told pt to follow up with PCP and if PCP thinks we need to see the pt, we are happy to do so. HANDLER * Telephone Encounter - Silvana Wise - 02/08/2018 1:57 PM CST Pt called - has increasing shortness of breath with ambulation HANDLER documented in this encounter Plan of Treatment Not on file documented as of this encounter Visit Diagnoses Not on filedocumented in this encounter Care Teams Diagnostic Radiologic Technologist Relationship Specialty Start Date End Date Hong Holder MD [address] [place] [address] [place] [id number] PCP - General 06/06/16 01/11/20 documented as of this encounter
--- OUTSIDE RECORDS SUMMARY | 2024-03-15 01:58 | XMS_ITS | Encounter Summary ---
Author Organization [facility] Address [address] [place] [address] Care Team Providers Care Sap Project Manager Name Role Phone Hong Holder MD Primary Care Provider [phone] Reason for Referral * Diagnostic Imaging (Routine) - Closed Specialty Diagnoses / Procedures Referred By Contac t Referred To Contact Diagnoses H/O mechanical aortic valve replacement Procedures Transthoracic Echo Complete W Doppler/CF Ana Maria Hess NP Phone: tel: fax: [facility] Referral ID Status Reason Start Date Expiration Date Visits Re quested Visits Authorized [id number] Closed 08/03/2018 02/12/2020 1 1 Reason for Visit * Reason Comments Atrial Fibrillation 5 mo f/u * Cardiology (Routine) - Closed Specialty Diagnoses / Procedures Referred By Contac t Referred To Contact Cardiology Diagnoses Other chest pain Hong Holder MD Phone: tel: fax: [facility] [address] [place] [id number] Phone: tel: fax: Referral ID Status Reason Start Date Expiration Date Visits Re quested Visits Authorized [id number] Closed 08/04/2017 08/16/2018 5 5 Encounter Details Date Type Department Care Team (Late st Contact Info) Description 08/03/2018 9:30 AM CDT Office Visit [facility] [address] [place] [address] Ana Maria Hess NP [address] [place] [address] Hyperlipidemia associated with type 2 diabetes mellitus (CMS/HCC) (Primary Dx); Dyspnea on exertion; Paroxysmal atrial flutter (CMS/HCC); Chronic anticoagulation; H/O mechanical aortic valve replacement Social History Tobacco Use Types Packs/Day Years Used Date Smoking Tobacco: Never Smokeless Tobacco: Never Alcohol Use Standard Drinks/Week Comments No 0 (1 standard drink = 0.6 oz pur e alcohol) Comments Unknown Sex and Gender Information Value Date Recorded Sex Assigned at Not on file 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 Gender Identity Not on file Sexual Orientation Not on file documented as of this encounter Last Filed Vital Signs Vital Sign Reading Time Taken Comments Blood Pressure 126/60 08/03/2018 10:15 AM CDT Pulse 69 08/03/2018 10:15 AM CDT Temperature - - Respiratory Rate - - Oxygen Saturation 97% 08/03/2018 10:15 AM CDT Inhaled Oxygen Concentration - - Weight 82.6 kg (182 lb) 08/03/2018 10:15 AM CDT Height 162.6 cm (5' 4 ) 08/03/2018 10:15 AM CDT Body Mass Index 31.24 08/03/2018 10:15 AM CDT documented in this encounter Ordered Prescriptions Prescription Sig Dispense Quantity Refills Last Filled Start Date End Date atorvastatin (LIPITOR) 10 mg tabletIndications: Hyperlipidemia associated with type 2 diabetes mellitus (HCC) Take 1 tablet (10 mg total) by mouth nightly 30 tablet 11 08/03/2018 0 documented in this encounter Progress Notes * Ana Maria Hess NP - 08/03/2018 9:30 AM CDT [facility] Date of Visit: 08/03/2018 Patient ID: Ana Maria Bobo 1945 Chief Complaint: Ana Maria Bobo is a 73 y.o. female who is an established patient of Dr. Paredes here for follow-up of her aortic valve disease. History of Present Illness: Ana Maria Bobo is a 73 y.o. female with [...] Going to see PCP. 08/12/17 Admitted to [facility] in June due to SOB found to be in A.Fib and started on Diltiazem and Metoprolol. Was discharged still with TORRES then sxs continued to worsen and readmitted to [facility] in July. She was started on Sotalol [...] 190, TG 125, LDL 93, HDL 72. Records that I personally reviewed on the day of this visit include: (the interpretation is outlined in the HPI above) 02/17/[address] Paredes, subsequent telephone notes in the medical center, 04/21/2018 PFT report I have also reviewed: allergies, current medications, past family history, past medical history, past social history, past surgical history and problem list Review of Systems Constitution: Positive for weight loss. Negative for diaphoresis, fever, malaise/fatigue and weightgain. HENT: Positive for hearing loss. Eyes: Positive for visual disturbance. Cardiovascular: Positive for dyspnea on exertion. Negative for chest pain, claudication, leg swelling, orthopnea, palpitations, paroxysmal nocturnal dyspnea and syncope. Respiratory: Positive for shortness of breath and snoring. Negative for cough, hemoptysis and wheezing. Hematologic/Lymphatic: Does not bruise/bleed easily. Skin: Negative for poor wound healing and rash. Musculoskeletal: Negative for joint pain and myalgias. Gastrointestinal: Negative for heartburn, nausea and vomiting. Genitourinary: Negative for hematuria. Neurological: Positive for headaches. Negative for dizziness and light-headedness. Psychiatric/Behavioral: Negative for depression. The patient is not nervous/anxious. Vital Signs: BP 126/60 (BP Location: Right arm, Patient Position: Sitting) Pulse 69 Ht 162.6 cm (5' 4 ) Wt82.6 kg (182 lb) SpO2 97% BMI 31.24 kg/m?? Physical Exam Constitutional: She is oriented to person, place, and time. She appears well- developed and well-nourished. No distress. obese HENT: Head: Normocephalic and atraumatic. Nose: Nose normal. Mouth/Throat: Mucous membranes are normal. Eyes: Pupils are equal, round, and reactive to light. Conjunctivae and EOM are normal. No scleral icterus. Neck: Normal range of motion. No JVD present. No tracheal deviation present. Cardiovascular: Normal rate, regular rhythm and normal heart sounds. No murmur heard. crips mechanical click Pulmonary/Chest: Effort normal and breath sounds normal. No respiratory distress. Abdominal: Soft. Bowel sounds are normal. There is no tenderness. Musculoskeletal: Normal range of motion. Only a trace of pedal edema Neurological: She is alert and oriented to person, place, and time. Skin: Skin is warm and dry. Psychiatric: She has a normal mood and affect. Cognition and memory are impaired. Allergies Allergen Reactions ??? Bacitracin ??? Benzalkonium ??? Gramicidin D ??? Hydrocortisone ??? Neomycin ??? Polymyxin B ??? Skin Cleanser Current Outpatient Medications: ??? alendronate (FOSAMAX) 70 mg tablet, Take 70 mg by mouth every 7 days. Take in the morning with a full glass of water, on an empty stomach, and do not take anything else by mouth or lie down for the next 30 min., Disp: , Rfl: ??? cholecalciferol (VITAMIN D-3) 1,000 unit, Take 1,000 Units by mouth daily., Disp: , Rfl: ??? ferrous sulfate 325 [...] for pain, Disp: , Rfl: 0 ??? magnesium oxide 400 mg capsule, Take 400 mg by mouth 2 (two) times a day., Disp: , Rfl: ??? metFORMIN (GLUCOPHAGE) 1,000 mg tablet, take 1 tablet (1000MG) by oral route 2 times every day with morning and evening meals, Disp: , Rfl: 0 ??? pioglitazone (ACTOS) 15 mg tablet, take 1 tablet (15MG) by oral route every day, Disp: , Rfl: 0 ??? polyethylene glycol (MIRALAX) 17 gram packet, Take 17 g by mouth daily., Disp: , Rfl: ??? PROAIR HFA 90 mcg/actuation inhaler, , Disp: , Rfl: 11 ??? sotalol (BETAPACE) 80 mg tablet, , Disp: , Rfl: 11 ??? tiZANidine (ZANAFLEX) 2 mg tablet, Take 2 mg by mouth every 8 (eight) hours as needed for muscle spasms., Disp: , Rfl: ??? traZODone (DESYREL) 50 [...] by oral route every evening Dr Maxwell managejazmine, Disp: , Rfl: 0 ??? atorvastatin (LIPITOR) 10 mg tablet, Take 1 tablet (10 mg total) by mouth nightly, Disp: 30 tablet, Rfl: 11 ??? meclizine (ANTIVERT) 25 mg tablet, take 1 tablet by oral route 3 times every day as needed (Patient not taking: Reported on 08/03/2018), Disp: 0, Rfl: 0 ??? omeprazole (PriLOSEC) 20 mg capsule, Take 20 mg by mouth daily., Disp: , Rfl: ??? pantoprazole DR (PROTONIX) 40 mg EC tablet, take 1 tablet by oral route every day (Patient not taking: Reported on 08/03/2018), Disp: 0, Rfl: 0 Lab Results Component Value Date POTASSIUM 4.5 07/02/2017 BUNSER 24 05/23/2015 CREATININE 1.0 07/02/2017 CHOL 173 06/29/2017 TRIG 116 06/29/2017 LDL 75 05/23/2015 LDLCALC 84 06/29/2017 HDL 66 06/29/2017 Assessment: Diagnoses and all orders for this visit: Hyperlipidemia associated with type 2 diabetes mellitus (CMS/HCC) (Primary) - atorvastatin (LIPITOR) 10 mg tablet; Take 1 tablet (10 mg total) by mouth nightly Dyspnea on exertion Paroxysmal atrial flutter (CMS/HCC) Chronic anticoagulation H/O mechanical aortic valve replacement - Transthoracic Echo Complete W Doppler/CF; Future Plan/Recommendations: I will send a new script for atorvastatin 10 mg daily to her pharmacy. I advised her to check medications at home and see if she has been taking this, and if not start the new script. She verbalized understanding. She has TORRES and an abnormal PFT. It sounds like her PCP referred her to pulmonology that she missedthe appointment. She has a follow-up visit with PCP today so I told her to ask about rescheduling her pulmonology appointment. She is on sotalol for history of paroxysmal atrial flutter. She sounds like she is in sinus rhythm today. We will get an ECG at her next visit to monitor QT interval. She is on anticoagulation with warfarin and PCP monitors INRs. She has history of mechanical aortic valve replacement last surveillance echo was done 2 years ago so I will arrange for her to have another echo prior to her next follow-up visit in 3 months. Return to the office to see Dr. Paredes in 3 months. Call us sooner with questions or concerns. MAI Guzman- Nurse Practitioner with [facility] This note is dictated and transcribed using [employer] Software. Curing Supervisor variancesmay occur. Despite proofreading, typographical errors may occur. documented in this encounter Miscellaneous Notes * Addendum Note - Margarita Webb MA - 08/03/2018 9:30 AM CDTAddended by: MARGARITA WEBB on: 08/03/2018 12:01 PM Modules accepted: Orders documented in this encounter Plan of Treatment Not on file documented as of this encounter Procedures Procedure Name Priority Date/Time Associated Diagnosis Comments POCT LIPID PANEL Routine 08/03/2018 12:0 1 PM CDT Hyperlipidemia associated with type 2 diabetes mellitus (CMS/HCC) documented in this encounter Results * TRANSTHORACIC ECHO (TTE) COMPLETE W DOPPLER/CF W CONTRAST (10/19/2018 1:51 PM CDT) Anatomical Region Laterality Modality Ultrasound 10/19/2018 11:5 9 AM CDT Narrative 10/19/2018 5:46 PM CDT [facility] [facility] [address], [place] [address] [address], [place] [address] P:[phone] P:[phone] Echocardiographic Report Patient Name: ANA MARIA BOBO : 1945 Study Date: 10/19/2018 11:59:17 AM Gender: F Tech: Location: [place] Ref.Provider: FRANK Height(Cm): 163 BSA: 1.88 Weight(Kg): 82.56 Heart Rate: 47 BP: 130/60 Quality: Definity contrast agent used to enhance endocardial border definition Order Provider: ANA MARIA HESS Procedures: Echocardiographic Report: Transthoracic echocardiogram with [...] Site: Exam was interpreted at [facility]. Left Ventricle: Normal left ventricular systolic [...] AI. Electronically Signed By: Jose Martin MD, [facility] 2018-10-19 17:46:31 CDT Procedure Note Jose Martin MD - 10/19/2018 [facility] [address] [facility] [address], [place] [address] [address], [place] [address] P:[phone] P:[phone] Echocardiographic Report Patient Name: ANA MARIA BOBOPatient ID: [id number] : [id number] Date: 10/19/2018 11:59:17 AM Gender: FAccession #: [id number] Tech: GMLocation: [place] Ref.Provider: BAYERHeight(Cm): 163 BSA: 1.88Weight(Kg): 82.56 Heart Rate: 47BP: 130/60 Quality: Definity contrast agent used to enhance endocardial borderdefinitionOrder Provider: ANA MARIA HESS Procedures: Echocardiographic Report: Transthoracic echocardiogram with [...] 0.40 - 0.80 ] m/s MV Decel [id number] [ 150 - 200 ] msec PV Peak Vel0.97 [ 0.40 - 0.80 ] m/s TR Peak Vel2.44 [ 0.40 - 0.80 ] m/s TR Peak PG 24mmHg RVSP32.00 mmHg E'0.07 E/E' 16 Findings: Interpretation Site: Exam was interpreted at [facility]. Left Ventricle: Normal left ventricular systolic [...] AI. Electronically Signed By: Jose Martin MD, [facility] 2018-10-19 17:46:31 CDT Ana Maria Hess NP CV ECHO PROCEDURES Final Result * POCT lipid panel (08/03/2018 12:01 PM CDT) Cholesterol, POC 190 mg/dL HDL, POC 72 mg/dL Triglycerides, POC 125 mg/dL LDL Cholesterol POC 93 mg/dL Chol/HDL Ratio, POC 2.6 Non-HDL Cholesterol, POC 117 mg/dL Cholesterol Total, POC 190 mg/dL Blood specimen (specimen) 08/03/2018 12:01 PM CDT Ana Maria Hess NP POINT OF CARE TEST ORDERA BLES Final Result documented in this encounter Visit Diagnoses Diagnosis Hyperlipidemia associated with type 2 diabetes mellitus (HCC)- Primary Dyspnea on exertion Other dyspnea and respiratory abnormality Paroxysmal atrial flutter (CMS/HCC) (HCC) Chronic anticoagulation Encounter for long-term (current) use of anticoagulants H/O mechanical aortic valve replacement H/O mechanical aortic valve replacement documented in this encounter Discontinued Medications Medication Sig Discontinue Reason Start Date End Da te predniSONE (DELTASONE) 10 mg tablet Take 10 mg by mouth daily. Therapy completed 08/03/2018 documented as of this encounter Historical Medications * This list may reflect changes made after this encounter. sotalol (BETAPACE) 80 mg tablet 11 06/18/2018 12/08/2018 traZODone (DESYREL) 50 mg tablet 50 mg daily 01/13/2020 PROAIR HFA 90 mcg/actuation inhaler as needed 11 05/31/2018 08/17/2020 added in this encounter Care Teams Sap Project Manager Relationship Specialty Start Date End Date Hong Holder MD [address] [facility] [address] [place] [address] PCP - General 06/06/16 01/11/20 documented as of this encounter
--- OUTSIDE RECORDS SUMMARY | 2024-03-15 01:58 | XMS_ITS | Encounter Summary ---
Author Organization [facility] Address [address] [place] [address] Care Team Providers Care Scientific Glass Blower Name Role Phone Hong Hloder MD Primary Care Provider [phone] [phone] Reason for Visit * Reason Comments Hospital Follow Up a-flutter * Cardiology (Routine) - Closed Specialty Diagnoses / Procedures Referred By Contac t Referred To Contact Cardiology Diagnoses Other forms of dyspnea Procedures CA OFFICE OUTPATIENT VISIT 15 MINUTES Referral # [id number] Hong Holder MD Phone: tel: fax: [facility] [address] [place] [address] [place] [phone] Phone: tel: fax: Referral ID Status Reason Start Date Expiration Date Visits Re quested Visits Authorized [id number] Closed 07/16/2015 09/20/2017 1 Encounter Details Date Type Department Care Team (Late st Contact Info) Description 08/12/2017 2:15 PM CDT Office Visit [facility] [address] [place] [address] [place] [phone] Maurice Paredes MD [facility] [address] [place] [address] Prosthetic aortic valve stenosis (Primary Dx); H/O mechanical aortic valve replacement; VAZQUEZ on CPAP; Dyspnea on exertion; Dyslipidemia associated with type 2 diabetes mellitus (CMS/HCC); Class 2 severe obesity due to excess calories with serious comorbidity and body mass index (BMI) of 38.0 to 38.9 in adult ([facility]); Chronic anticoagulation; Paroxysmal atrial flutter ([facility]); Encounter for monitoring sotalol therapy Social History Tobacco Use Types Packs/Day Years Used Date Smoking Tobacco: Never Smokeless Tobacco: Never Alcohol Use Standard Drinks/Week Comments No 0 (1 standard drink = 0.6 oz pur e alcohol) Comments Unknown Sex and Gender Information Value Date Recorded Sex Assigned at Not on file 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 Gender Identity Not on file Sexual Orientation Not on file documented as of this encounter Last Filed Vital Signs Vital Sign Reading Time Taken Comments Blood Pressure 122/64 08/12/2017 2:01 PM CDT Pulse 69 08/12/2017 2:01 PM CDT Temperature - - Respiratory Rate - - Oxygen Saturation 96% 08/12/2017 2:01 PM CDT Inhaled Oxygen Concentration - - Weight 94.8 kg (209 lb) 08/12/2017 2:01 PM CDT Height 162.6 cm (5' 4 ) 08/12/2017 2:01 PM CDT Body Mass Index 35.87 08/12/2017 2:01 PM CDT documented in this encounter Ordered Prescriptions Prescription Sig Dispense Quantity Refills Last Filled Start Date End Date sotalol (BETAPACE) 80 mg tablet Take 1 tablet (80 mg total) by mouth 2 (two) times a day. 60 tablet 11 08/12/2017 02/17/2018 documented in this encounter Progress Notes * Maurice Paredes MD - 08/12/2017 2:15 PM CDT [facility] DATE OF VISIT: 08/12/2017 CHIEF COMPLAINT Chief Complaint Patient presents with ??? Hospital Follow Up a-flutter HPI Radha Huynh is a 72 y.o. [...] Going to see PCP. 08/12/17 Admitted to [facility] in June due to SOB found to be in A.Fib and started on Diltiazem and Metoprolol. Was discharged still with TORRES then sxs continued to worsen and readmitted to [facility] in July. She was started on Sotalol (Dilt and Metoprolol stopped). She spontaneously converted to SR prior to ALFRED/CV. SOB resolved, back at baseline no complaints. No CP or dizziness, bleeding.Qiana meds. MEDICAL HISTORY Past Medical History: Diagnosis Date [...] : Myocardial Infarction MEDICATIONS HOME MEDICATIONS : atorvastatin (LIPITOR) 10 mg tablet ferrous sulfate 325 mg (65 mg of elemental iron) tablet fluticasone (FLONASE) 50 mcg/actuation nasal spray furosemide (LASIX) 40 mg tablet gabapentin (NEURONTIN) 300 mg capsule HYDROcodone-acetaminophen (LORCET 10-650) 10-650 mg per tablet lisinopril (PRINIVIL,ZESTRIL) 10 mg tablet magnesium oxide 400 mg capsule meclizine (ANTIVERT) 25 mg tablet metFORMIN (GLUCOPHAGE) 1,000 mg tablet omeprazole (PriLOSEC) [address] (PROTONIX) 40 mg EC tablet pioglitazone (ACTOS) 15 mg tablet polyethylene glycol (MIRALAX) 17 gram packet tiZANidine (ZANAFLEX) 2 mg tablet traZODone (DESYREL) 50 mg tablet venlafaxine 150 mg tablet extended release 24hr 24 hr tablet warfarin (COUMADIN) 10 mg tablet warfarin (COUMADIN) 2 mg tablet ALLERGIES Allergies Allergen Reactions ??? Bacitracin ??? Benzalkonium ??? Gramicidin D ??? Hydrocortisone ??? Neomycin ??? Polymyxin B ??? Skin Cleanser REVIEW OF SYSTEMS Review of Systems Constitution: Positive for weight loss. Negative for decreased appetite, diaphoresis, fever, weakness, malaise/fatigue and night sweats. HENT: Negative for hearing [...] rash and suspicious lesions. Musculoskeletal: Positive for arthritis and joint pain. Negative for falls, muscle weakness and myalgias. Gastrointestinal: Negative for abdominal pain, heartburn, hematemesis, melena and nausea. Genitourinary: Negative for dysuria, hematuria and nocturia. Neurological: Negative for excessive daytime sleepiness, dizziness, focal weakness, headaches, light-headedness and loss of balance. Psychiatric/Behavioral: Negative for altered mental status, depression and memory loss. The patientis not nervous/anxious. Allergic/Immunologic: Negative for environmental allergies. PHYSICAL EXAM Vitals: 08/12/17 1401 BP: 122/64 Pulse: 69 SpO2: 96% Weight: 94.8 kg (209 lb) Height: 162.6 cm (5' 4 ) Body mass index is 35.87 kg/m??. Physical Exam Constitutional: She is oriented [...] is present with a grade of 2/6 Mellette metallic S2 Pulmonary/Chest: Effort normal and breath [...] visit with results is: Office Visit on 03/20/2017 Component Date Value Ref Range Status ??? Cholesterol, POC 03/20/2017 282 mg/dL Final ??? HDL, POC 03/20/2017 94 mg/dL Final ??? Triglycerides, POC 03/20/2017 407 mg/dL Final ??? LDL, Direct, POC 03/20/2017 106 mg/dL Final ??? Chol/HDL Ratio, POC 03/20/2017 3.0 Final ??? Non-HDL Cholesterol, POC 03/20/2017 188 mg/dL Final ??? Cholesterol Total, POC 03/20/2017 282 mg/dL Final Results for orders placed or performed in visit on 03/20/17 POCT lipid panel Result Value Ref Range Cholesterol, POC 282 mg/dL HDL, POC 94 mg/dL Triglycerides, POC 407 mg/dL LDL, Direct, POC 106 mg/dL Chol/HDL Ratio, POC 3.0 Non-HDL Cholesterol, POC 188 mg/dL Cholesterol Total, POC 282 mg/dL Personally reviewed EKG, Echocardiogram, stress test, and bloodwork/lipids and hospital records from [facility] 06/2017 and [facility] 07/2017. ASSESSMENT Diagnoses and all orders for this visit: Prosthetic aortic valve stenosis (Primary) H/O mechanical aortic valve replacement VAZQUEZ on CPAP Dyspnea on exertion Dyslipidemia associated with type 2 diabetes mellitus ([facility]) Class 2 severe obesity due to excess calories with serious comorbidity and body mass index (BMI) of38.0 to 38.9 in adult ([facility]) Chronic anticoagulation Paroxysmal atrial flutter ([facility]) Encounter for monitoring sotalol therapy PLAN/RECOMMENDATIONS 1. BP improved on repeat check in the office. Monitor BP on routine basis. Call with [...] managed by PCP 7. Personally reviewed lipids 03/20/17 LDL 102, not ideally controlled (nonfasting sample). Taking Atorvastatin now. 8. 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 Personally reviewed and discussed Echos. 9. Stable, A. flutter controlled, maintaining SR on Sotalol. Continue current medical therapy and systemic anticoagulation for stroke risk reduction. CHADS2 Vasc score 3-4. 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 Follow up in the office in 3 months or sooner as needed. Thank you for allowing me the privilege of participating in the care this very pleasant patient. Please do not hesitate to contact me with any additional questions or concerns. Dilma Paredes MD, [facility] documented in this encounter Miscellaneous Notes * Addendum Note - Margarita Webb MA - 08/12/2017 2:15 PM CDTAddended by: MARGARITA WEBB on: 08/13/2017 03:04 PM Modules accepted: Orders documented in this encounter Plan of Treatment Not on file documented as of this encounter Procedures Procedure Name Priority Date/Time Associated Diagnosis Comments ECG 12-LEAD Routine 08/12/2017 Dyspnea on exertion Paroxysmal atrial flutter ([facility]) documented in this encounter Results * ECG 12 lead (08/12/2017) Maurice Paredes MD ECG ORDERABLES Final Re sult documented in this encounter Visit Diagnoses Diagnosis Prosthetic aortic valve stenosis- Primary H/O mechanical aortic valve replacement VAZQUEZ on CPAP Dyspnea on exertion Other dyspnea and respiratory abnormality Dyslipidemia associated with type 2 diabetes mellitus ([facility]) Class 2 severe obesity due to excess calories with serious comorbidity and body mass index (BMI) of 38.0 to 38.9 in adult ([facility]) Chronic anticoagulation Encounter for long-term (current) use of anticoagulants Paroxysmal atrial flutter ([facility]) ([facility]) Encounter for monitoring sotalol therapy documented in this encounter Discontinued Medications Medication Sig Discontinue Reason Start Date End Da te sotalol (BETAPACE) 80 mg tablet Take 80 mg by mouth 2 (two) times a day. Reorder 08/12/2017 documented as of this encounter Historical Medications * This list may reflect changes made after this encounter. sotalol (BETAPACE) 80 mg tablet Take 80 mg by mouth 2 (two) times a day. 08/12/2017 atorvastatin (LIPITOR) 10 mg tablet Take 10 mg by mouth daily. 02/17/2018 added in this encounter Care Teams Scientific Glass Blower Relationship Specialty Start Date End Date Hong Holder MD [address] [address] PCP - General 06/06/16 01/11/20 documented as of this encounter
--- OUTSIDE RECORDS SUMMARY | 2024-03-15 01:58 | XMS_ITS | Encounter Summary ---
Author Organization [facility] Address [address] [place] [address] Care Team Providers Care Tool Supervisor Name Role Phone Hong Holder MD Primary Care Provider [phone] [phone] Reason for Referral * Diagnostic Imaging (Routine) - Closed Specialty Diagnoses / Procedures Referred By Contac t Referred To Contact Procedures XR Chest Pa Lateral 2 Views [facility] [address] [address] [address] [place] [address] Phone: tel: fax: Referral ID Status Reason Start Date Expiration Date Visits Re quested Visits Authorized [id number] Closed 03/23/2018 10/02/2019 1 1 PCT Encounter Details Date Type Department Care Team (Late st Contact Info) Description 03/23/2018 Orders Only [facility] [address] [place] [address] [address] [place] [phone] Casi Quinonez MD [address] [place] [address] Social History Tobacco Use Types Packs/Day Years Used Date Smoking Tobacco: Never Smokeless Tobacco: Never Alcohol Use Standard Drinks/Week Comments No 0 (1 standard drink = 0.6 oz pur e alcohol) Comments Unknown Sex and Gender Information Value Date Recorded Sex Assigned at Not on file Legal Sex Female 6:10 AM CNA PCT Gender Identity Not on file Sexual Orientation Not on file documented as of this encounter Plan of Treatment Not on file documented as of this encounter Procedures Procedure Name Priority Date/Time Associated Diagnosis Comments XR CHEST PA LATERAL 2 VIEWS Schedule Routine, Read Routine (OP Routine) 03/22/2018 documented in this encounter Results * XR Chest Pa Lateral 2 Views (03/22/2018) Anatomical Region Laterality Modality Body, Chest N/A Radiographic Jennifer ging us Historical Provider MD VARGAS XR PROCEDURES Final R esult documented in this encounter Visit Diagnoses Not on filedocumented in this encounter Care Teams Tool Supervisor Relationship Specialty Start Date End Date oHng Holder MD [address] [facility] [address] [place] [id number] PCP - General 06/06/16 01/11/20 documented as of this encounter
--- OUTSIDE RECORDS SUMMARY | 2024-03-15 01:58 | XMS_ITS | Encounter Summary ---
Author Organization [facility] Address [address] [place] [address] Care Team Providers Care Physical Therapy Professor Name Role Phone Hong Holder MD Primary Care Provider [phone] [phone] Encounter Details Date Type Department Care Team (Late st Contact Info) Description 03/18/2018 Telephone [facility] [address] [facility] [address] [place] [phone] Maurice Paredes MD [address] [facility] [address] [place] [address] Social History Tobacco Use Types Packs/Day Years Used Date Smoking Tobacco: Never Smokeless Tobacco: Never Alcohol Use Standard Drinks/Week Comments No 0 (1 standard drink = 0.6 oz pur e alcohol) Comments Unknown Sex and Gender Information Value Date Recorded Sex Assigned at Not on file Legal Sex Female 6:10 AM UNDERWATER ROBOTICIST Gender Identity Not on file Sexual Orientation Not on file documented as of this encounter Miscellaneous Notes * Telephone Encounter - Johanna Quigley RN - 03/19/2018 11:44 AM UNDERWATER ROBOTICIST Pt notified of ordered tests. She [place] not be able to go today due to weather, [place] RWATER ROBOTICIST * Telephone Encounter - Maurice Paredes MD - 03/18/2018 5:11 PM UNDERWATER ROBOTICIST SOB in cold air or in general. Check CBC, BMP and if sxs are worsening CXR. RWATER ROBOTICIST * Telephone Encounter - Johanna Quigley RN - 03/18/2018 3:11 PM UNDERWATER ROBOTICIST Pt wanted to let Dr Paredes know that her SOB has not improved since stopping her Vit D and atorvastatin. RWATER ROBOTICIST * Telephone Encounter - Isamar Green - 03/18/2018 2:13 PM UNDERWATER ROBOTICIST Pt was advised to hold her atorvastatin 10 mg and Vit D due to SOB. Pt says she is still having SOB, pt will like a call back [phone] RWATER ROBOTICIST documented in this encounter Plan of Treatment Not on file documented as of this encounter Visit Diagnoses Not on filedocumented in this encounter Care Teams Physical Therapy Professor Relationship Specialty Start Date End Date Hong Holder MD [address] [place] [address] PCP - General 06/06/16 01/11/20 documented as of this encounter
--- OUTSIDE RECORDS SUMMARY | 2024-03-15 01:58 | XMS_ITS | Encounter Summary ---
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); Old myocardial infarction; Muscle spasm of back; Cervicalgia; Essential (primary) hypertension; Presence of prosthetic heart valve Social History Tobacco Use Types Packs/Day Years Used Date Smoking Tobacco: Never Alcohol Use Standard Drinks/Week Comments No 0 (1 standard drink = 0.6 oz pur e alcohol) Comments Unknown Sex and Gender Information Value Date Recorded Sex Assigned at Not on file Legal Sex Female 6:10 AM BUSINESS DEAN Gender Identity Not on file Sexual Orientation Not on file documented as of this encounter Last Filed Vital Signs Vital Sign Reading Time Taken Comments Blood Pressure 116/63 06/05/2015 7:27 PM CDT Pulse 82 06/05/2015 7:27 PM CDT Temperature 36.4 ??C (97.5 ??F) 06/05/2015 7:27 PM CD T Respiratory Rate - - Oxygen Saturation 100% 06/05/2015 7:27 PM CDT Inhaled Oxygen Concentration - - Weight 99.8 kg (220 lb) 06/05/2015 7:27 PM CDT Height 165.1 cm (5' 5 ) 06/05/2015 7:27 PM CDT Body Mass Index 36.61 06/05/2015 7:27 PM CDT documented in this encounter Medications at [...] route every day 0 0 09/12/2014 02/17/2018 metFORMIN (GLUCOPHAGE) 1,000 mg tablet take 1 [...] Priority Date/Time Associated Diagnosis Comments PROTIME-INR Routine 06/11/2015 7:06 AM CDT PROTIME-INR Routine 06/08/2015 6:51 AM CDT BASIC METABOLIC PANEL Routine 06/07/2015 5:40 PM CDT documented in this encounter Results * (ABNORMAL) Protime-INR (06/11/2015 7:06 AM CDT) PT 37.3(H) 11.8 - 14.5 SECONDS 06/11/2015 7:59 AM CDT [facility] HISTORICAL RESULTS Comment:New Reference Range in use at [facility] 04/12/2015 INR 3.69 0.01 - 5.99 06/11/2015 7:59 AM CDT [facility] HISTORICAL RESULTS Comment: Recommended Therapeutic range for Oral Anticoagulant Therapy No anti-coagulation therapy ? Normal Range: ?0.8-1.4 Anti-coagulation therapy ? Low intensity therapy ?2.0-3.0 ? High intensity therapy ?? 2.5-3.5 Critical Value ? Greater than or equal to 6.0 Patients should be monitored for serious bleeding. ?? 06/11/2015 7:06 AM CDT 06/11/2015 7:48 AM CDT Tana Wallace DO LAB BLOOD ORDERABLES Final Result [facility] HISTORICAL RESULTS * (ABNORMAL) Protime-INR (06/08/2015 6:51 AM CDT) PT 33.3(H) 11.8 - 14.5 SECONDS 06/08/2015 9:43 AM CDT [facility] HISTORICAL RESULTS Comment:New Reference Range in use at [facility] 04/12/2015 INR 3.22 0.01 - 5.99 06/08/2015 9:43 AM CDT [facility] HISTORICAL RESULTS Comment: Recommended Therapeutic range for Oral Anticoagulant Therapy No anti-coagulation therapy ? Normal Range: ?0.8-1.4 Anti-coagulation therapy ? Low intensity therapy ?2.0-3.0 ? High intensity therapy ?? 2.5-3.5 Critical Value ? Greater than or equal to 6.0 Patients should be monitored for serious bleeding. ?? 06/08/2015 6:51 AM CDT 06/08/2015 8:53 AM CDT us Hong Holder MD LAB BLOOD ORDERABLES Christen l Result [facility] HISTORICAL RESULTS * (ABNORMAL) Basic metabolic panel (06/07/2015 5:40 PM CDT) Sodium 135 135 - 145 mmol/L Potassium 4.6 3.3 - 5.1 mmol/L Chloride 93(L) 96 - 108 mmol/L Carbon Dioxide 31 22 - 32 mmol/L Anion Gap 11 7 - 16 Glucose 114(H) 70 - 100 mg/dL BUN 26(H) 8 - 23 mg/dL Creatinine 1.2(H) 0.5 - 1.1 mg/dL Comment: NOTE: Estimated GFR (Cockroft-Gault) will NOT be calculated unless patient Height and Weight were entered. Also, Kidney Disease Stage (GFR) and Estimated GFR (Cockroft-Gault) will NOT be calculated if Creatinine result is <0.2. Kidney Disease Stage 47 mL/MIN 06/07/2015 6:20 PM CDT [employer] HISTORICAL RESULTS Comment: NOTE; ??The GFR is an estimated value using the creatinine, sex, age, and race of the patient. THE ESTIMATED GFR IS VALIDATED FOR AGES 18-70 YEARS STAGE ?mL/Min ?DESCRIPTION ??1 ?90 mL/min or more ?Normal or elevated GFR ??2 ? 60-89 mL/min ?Mildly decreased GFR ??3 ? 30-59 mL/min ?Moderately decreased GFR ??4 ? 15-29 mL/min ?Severely decreased GFR ??5 ? <15 mL/min ? Kidney failure or on dialysis @ Est GFR (Cockcroft-G) 50 ml/MIN 06/07/2015 6:20 PM CDT [employer] HISTORICAL RESULTS Calcium 10.6(H) 8.8 - 10.2 mg/dL 06/07/2015 6:20 PM CDT [employer] HISTORICAL RESULTS 06/07/2015 5:40 PM CDT 06/07/2015 5:50 PM CDT Hong Holder MD LAB BLOOD ORDERABLES Christen l Result [facility] [employer] HISTORICAL RESULTS documented in this encounter Visit Diagnoses Diagnosis Chest pain Unspecified chest pain Type 2 diabetes mellitus with diabetic polyneuropathy (HCC) Old myocardial infarction Muscle spasm of back Cervicalgia Essential (primary) hypertension Unspecified essential hypertension Presence of prosthetic heart valve documented in this encounter Care Teams Sales Support Rep Relationship Specialty Start Date End Date Hong Holder MD [address] [place] [address] PCP - General 01/15/15 06/05/16 documented as of this encounter
--- OUTSIDE RECORDS SUMMARY | 2024-03-15 01:58 | XMS_ITS | Encounter Summary ---
Author Organization [facility] Address [address] [place] [address] Care Team Providers Care Metal Hanging Helper Name Role Phone Hong Holder MD Primary Care Provider [phone] Reason for Visit * Reason Comments Follow-up Encounter Details Date Type Department Care Team (Late st Contact Info) Description 03/20/2017 2:45 PM ENGRAVER BLOCK Office Visit [facility] [address] [address] [address] [place] [address] Maurice Paredes MD [address] [place] [address] Hypertensive heart disease with congestive heart failure (CMS/HCC) (Primary Dx); Dyslipidemia associated with type 2 diabetes mellitus (CMS/HCC); VAZQUEZ on CPAP; H/O mechanical aortic valve replacement; Chronic anticoagulation; Class 2 obesity due to excess calories with serious comorbidity and body mass index (BMI) of 38.0 to 38.9 in adult; Prosthetic aortic valve stenosis Social History Tobacco Use Types Packs/Day Years Used Date Smoking Tobacco: Never Smokeless Tobacco: Never Alcohol Use Standard Drinks/Week Comments No 0 (1 standard drink = 0.6 oz pur e alcohol) Comments Unknown Sex and Gender Information Value Date Recorded Sex Assigned at Not on file Legal Sex Female 6:10 AM ENGRAVER BLOCK Gender Identity Not on file Sexual Orientation Not on file documented as of this encounter Last Filed Vital Signs Vital Sign Reading Time Taken Comments Blood Pressure 136/74 03/20/2017 2:56 PM ENGRAVER BLOCK Pulse 104 03/20/2017 2:56 PM ENGRAVER BLOCK Temperature - - Respiratory Rate - - Oxygen Saturation 96% 03/20/2017 2:56 PM ENGRAVER BLOCK Inhaled Oxygen Concentration - - Weight 100.7 kg (222 lb) 03/20/2017 2:56 PM ENGRAVER BLOCK Height 162.6 cm (5' 4 ) 03/20/2017 2:56 PM ENGRAVER BLOCK Body Mass Index 38.11 03/20/2017 2:56 PM ENGRAVER BLOCK documented in this encounter Progress Notes * Maurice Paredes MD - 03/20/2017 2:45 PM CST [facility] DATE OF VISIT: 03/20/2017 CHIEF COMPLAINT Chief Complaint Patient presents with ??? Follow-up HPI Radha Huynh is a 71 y.o. female with a PMHx of mechanical [...] ribs heal up. Going to see PCP. MEDICAL HISTORY Past Medical History: Diagnosis Date [...] : Myocardial Infarction MEDICATIONS HOME MEDICATIONS : ferrous sulfate 325 mg (65 mg of [...] gram packet tiZANidine (ZANAFLEX) 2 mg tablet venlafaxine 150 mg tablet extended release 24hr 24 hr tablet warfarin (COUMADIN) 10 mg tablet warfarin (COUMADIN) 2 mg tablet traZODone (DESYREL) 50 mg [...] Negative for environmental allergies. PHYSICAL EXAM Vitals: 03/20/17 1456 BP: 136/74 Pulse: 104 SpO2: 96% Weight: 100.7 kg (222 lb) Height: 162.6 cm (5' 4 ) Body mass index is 38.11 kg/m??. Physical Exam Constitutional: She is oriented [...] is present with a grade of 2/6 [place] metallic S2 Pulmonary/Chest: Effort normal and breath [...] AND OTHER DIAGNOSTIC TESTS Office Visit on 03/20/2017 Component Date Value [...] Personally reviewed EKG, Echocardiogram, stress test, and bloodwork/lipids. ASSESSMENT Diagnoses and all orders for this visit: Hypertensive heart disease with congestive heart failure (CMS/HCC) (Primary) Dyslipidemia associated with type 2 diabetes mellitus (CMS/HCC) - POCT lipid panel VAZQUEZ on CPAP H/O mechanical aortic valve replacement Chronic anticoagulation Class 2 obesity due to excess calories with serious comorbidity and body mass index (BMI) of 38.0 to 38.9 in adult Prosthetic aortic valve stenosis PLAN/RECOMMENDATIONS 1. BP improved on repeat check [...] TORRES. 6. DM managed by PCP 7. Reviewed lipids in the office, not ideally controlled (nonfasting sample). Not on a statin at this time but pt states she was taking one but might be a mix up with her pharmacy she states. Repeat fasting lipid panel 8. 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 Personally reviewed and discussed Echos. Over 50% of this visit counseling mechanical aortic valve, HTN, lipids, medications, lifestyle modification. Follow up in the office in 6 months. Thank you for allowing me the privilege of participating in the care this very pleasant patient. Please do not hesitate to contact me with any additional questions or concerns. Dilma Paredes MD, [facility] AV[facility] BLOCK documented in this encounter Plan of Treatment Not on file documented as of this encounter Procedures Procedure Name Priority Date/Time Associated Diagnosis Comments POCT LIPID PANEL Routine 03/20/2017 3:03 PM ENGRAVER BLOCK Dyslipidemia associated with type 2 diabetes mellitus (CMS/HCC) documented in this encounter Results * POCT lipid panel (03/20/2017 3:03 PM ENGRAVER BLOCK) Cholesterol, POC 282 mg/dL HDL, POC 94 mg/dL Triglycerides, POC 407 mg/dL LDL Cholesterol POC 106 mg/dL Chol/HDL Ratio, POC 3.0 Non-HDL Cholesterol, POC 188 mg/dL Cholesterol Total, POC 282 mg/dL Blood specimen (specimen) 03/20/2017 3:03 PM ENGRAVER BLOCK Maurice Paredes MD POINT OF CARE TEST ORDER AIXA Final Result documented in this encounter Visit Diagnoses Diagnosis Hypertensive heart disease with congestive heart failure (HCC)- Primary Unspecified hypertensive heart disease with heart failure Dyslipidemia associated with type 2 diabetes mellitus (HCC) VAZQUEZ on CPAP H/O mechanical aortic valve replacement Chronic anticoagulation Encounter for long-term (current) use of anticoagulants Class 2 obesity due to excess calories with serious comorbidity and body mass index (BMI) of 38.0 to 38.9 in adult Prosthetic aortic valve stenosis documented in this encounter Historical Medications * This list may reflect changes made after this encounter. omeprazole (PriLOSEC) 20 mg capsule Take 1 capsule (20 mg total) by mouth daily tiZANidine (ZANAFLEX) 2 mg tablet Take 2 mg by mouth every 8 (eight) hours as needed for muscle spasms. 9 polyethylene glycol (MIRALAX) 17 gram packet Take 17 g by mouth daily. 0 magnesium oxide 400 mg capsule Take 400 mg by mouth 2 (two) times a day. 0 fluticasone (FLONASE) 50 mcg/actuation nasal spray Administer 1 spray into each nostril daily. 1 ferrous sulfate 325 mg (65 mg of elemental iron) tabletIndication s:Iron Deficiency Anemia Take 325 mg of elemental iron by mouth daily 1 added in this encounter Care Teams Metal Hanging Helper Relationship Specialty Start Date End Date Hong Holder MD [address] [facility] [address] [place] [address] PCP - General 06/06/16 01/11/20 documented as of this encounter
--- OUTSIDE RECORDS SUMMARY | 2024-03-15 01:58 | XMS_ITS | Encounter Summary ---
Author Organization [facility] Address [address] [place] [address] Care Team Providers Care Assistant Program Director Name Role Phone Hong Holder MD Primary Care Provider [phone] Encounter Details Date Type Department Care Team (Late st Contact Info) Description 07/16/2017 Telephone [facility] [address] [facility] [address] [place] [id number] Maurice Paredes MD [address] [facility] [place] [address] [place] [address] Social History Tobacco Use Types Packs/Day Years Used Date Smoking Tobacco: Never Smokeless Tobacco: Never Alcohol Use Standard Drinks/Week Comments No 0 (1 standard drink = 0.6 oz pur e alcohol) Comments Unknown Sex and Gender Information Value Date Recorded Sex Assigned at Not on file Legal Sex Female 6:10 AM STENCILER Gender Identity Not on file Sexual Orientation Not on file documented as of this encounter Miscellaneous Notes * Telephone Encounter - Diana Cordova RN - 07/16/2017 10:11 AM CDT Spoke with patient. States that she was recently sent to [facility] in [place] via ambulance by her PCP due to her shortness of breath and had a lot of testing done during her admission. Per patient, the shortness of breath has not worsened or improved since being admitted/discharged and she denies any swelling. Went by her PCP's office yesterday and was seen and pcp encouraged her to make an appointment with Dr. Paredes. INR has been therapeutic per patient. Patient very tearful on phone stating that she cannot even clean her kitchen without getting extremely short of breath. Appointment made with Dr. Paredes on 07/20/17 and records request sent to [facility]. Patient instructed to proceed to the ER if symptoms worsen. Verbalized understanding. * Telephone Encounter - AminaJune - 07/16/2017 9:16 AM CDT Pt called to schedule an appt. Pt say she recently was hospitalized and has a mechanical heart valve and is having trouble breathing and needs to get in to see the dr. Villatoro. documented in this encounter Plan of Treatment Not on file documented as of this encounter Visit Diagnoses Not on filedocumented in this encounter Care Teams Assistant Program Director Relationship Specialty Start Date End Date Hong Holder MD [address] [place] [address] PCP - General 06/06/16 01/11/20 documented as of this encounter
--- OUTSIDE RECORDS SUMMARY | 2024-03-15 01:58 | XMS_ITS | Encounter Summary ---
Author Organization [facility] Medical [facility] Address [address] [place] [address] Care Team Providers Care Quick Print Operator Name Role Phone Hong Holder MD Primary Care Provider [phone] Encounter Details Date Type Department Care Team (Late st Contact Info) Description 03/24/2018 Orders Only [facility] [address] [address] [address] [place] [address] ProviderCasi MD [address] [place] [address] Social History Tobacco Use Types Packs/Day Years Used Date Smoking Tobacco: Never Smokeless Tobacco: Never Alcohol Use Standard Drinks/Week Comments No 0 (1 standard drink = 0.6 oz pur e alcohol) Comments Unknown Sex and Gender Information Value Date Recorded Sex Assigned at Not on file Legal Sex Female 6:10 AM 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 AIR 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 INSTALLER Gender Identity Not on file Sexual Orientation Not on file documented as of this encounter Plan of Treatment Not on file documented as of this encounter Procedures Procedure Name Priority Date/Time Associated Diagnosis Comments BASIC METABOLIC PANEL Routine 03/22/2018 documented in this encounter Results * Basic metabolic panel (03/22/2018) Blood specimen (specimen) Historical Provider LAB BLOOD ORDERABLES Christen l Result documented in this encounter Visit Diagnoses Not on filedocumented in this encounter Care Teams Quick Print Operator Relationship Specialty Start Date End Date Hong Holder MD [address] [place] [address] [place] [address] PCP - General 06/06/16 01/11/20 documented as of this encounter
--- OUTSIDE RECORDS SUMMARY | 2024-03-15 01:58 | XMS_ITS | Encounter Summary ---
Author Organization [facility] Address [address] [facility] [address] [place] [address] Care Team Providers Care Black Puller Name Role Phone Hong Holder MD Primary Care Provider [phone] Encounter Details Date Type Department Care Team (Late st Contact Info) Description 03/24/2018 Telephone [facility] [address] [address] [address] [place] [address] Maurice Paredes MD [address] [facility] [address] [place] [address] Social History Tobacco Use Types Packs/Day Years Used Date Smoking Tobacco: Never Smokeless Tobacco: Never Alcohol Use Standard Drinks/Week Comments No 0 (1 standard drink = 0.6 oz pur e alcohol) Comments Unknown Sex and Gender Information Value Date Recorded Sex Assigned at Not on file Legal Sex Female 6:10 AM VEHICLE DELIVERY WORKER Gender Identity Not on file Sexual Orientation Not on file documented as of this encounter Miscellaneous Notes * Telephone Encounter - Johanna Quigley RN - 03/24/2018 10:52 AM VEHICLE DELIVERY WORKER Per Dr Paredes, No clear explanation for SOB on CXR. Monitor sxs, she should discuss with her PCP as well. Please forward CXR to her PCP for review and comment as appropriate. . Pt notfied and report faxed to PCP. CLE DELIVERY WORKER documented in this encounter Plan of Treatment Not on file documented as of this encounter Visit Diagnoses Not on filedocumented in this encounter Care Teams Black Puller Relationship Specialty Start Date End Date Hong Holder MD [address] [facility] [address] [place] [address] PCP - General 06/06/16 01/11/20 documented as of this encounter
--- OUTSIDE RECORDS SUMMARY | 2024-03-15 01:58 | XMS_ITS | Encounter Summary ---
Author Organization [facility] Medical [facility] Address [address] [place] [address] Care Team Providers Care Shipping Clerk/Admin Name Role Phone Hong Holder MD Primary Care Provider [phone] Hong Holder MD Primary Care Provider [phone] [phone] Juan Pablo Dominguez MD Primary Care Provider Miscellaneous, Not In File Primary Care Provider Unavailable Sanjeev Webster DO Primary Care Provide r Encounter Details Date Type Department Care Team (Late st Contact Info) Description 05/28/2016 Orders Only [facility] ProviderCasi MD [address] [place] [address] Social History Tobacco Use Types Packs/Day Years Used Date Smoking Tobacco: Never Alcohol Use Standard Drinks/Week Comments No 0 (1 standard drink = 0.6 oz pur e alcohol) Comments Unknown Sex and Gender Information Value Date Recorded Sex Assigned at Not on file Legal Sex Female 6:10 AM EQUAL OPPORTUNITY SPECIALIST Gender Identity Not on file Sexual Orientation Not on file documented as of this encounter Plan of Treatment Not on file documented as of this encounter Procedures Procedure Name Priority Date/Time Associated Diagnosis Comments CARDIOLOGY REPORT 05/28/2016 documented in this encounter Results * CARDIOLOGY REPORT (05/28/2016) Anatomical Region Laterality Modality Other Narrative 05/28/2016 Ordered by an unspecified provider. Historical Provider [facility] JOSE RAMON BENOIT Final Result documented in this encounter Visit Diagnoses Not on filedocumented in this encounter Care Teams Shipping Clerk/Admin Relationship Specialty Start Date End Date Hong Holder MD [address] [place] [address] [place] [address] PCP - General 06/06/16 01/11/20 Hong Holder MD [address] [place] [address] [place] [address] PCP - General 01/15/15 06/05/16 Juan Pablo Dominguez MD [address] [place] [address] PCP - General Family Medicine 01/12/20 08/06/20 Miscellaneous, Not In File PCP - General 08/07/20 2 Sanjeev Webster DO [address] [place] [address] PCP - General Family Medicine 03/11/21 documented as of this encounter
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
--- OUTSIDE RECORDS SUMMARY | 2024-03-15 01:59 | XMS_ITS | Encounter Summary ---
Author Organization [facility] Healthcare Address [address] [place] [address] Care Team Providers Care Documentation Clerk Name Role Phone Hong Holder MD Primary Care Provider [phone] Encounter Details Date Type Department Care Team (Latest Contact Info) Description 05/25/2015 4:25 PM CDT - 06/04/2015 9:40 AM CDT Hospital Encounter [facility] Hong Holder MD [address] [facility] [address] [place] [id number] Contusion of scalp, subsequent encounter; Cervicalgia; Constipation; Adverse effect of other opioids, subsequent encounter; Muscle spasm of back; Presence of prosthetic heart valve; Type 2 diabetes mellitus with diabetic polyneuropathy (CMS/FORMERLY [facility]) Social History Tobacco Use Types Packs/Day Years Used Date Smoking Tobacco: Never Alcohol Use Standard Drinks/Week Comments No 0 (1 standard drink = 0.6 oz pur e alcohol) Comments Unknown Sex and Gender Information Value Date Recorded Sex Assigned at Not on file 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 Gender Identity Not on file Sexual Orientation Not on file documented as of this encounter Last Filed Vital Signs Vital Sign Reading Time Taken Comments Blood Pressure 97/57 05/31/2015 12:47 PM CDT Pulse 74 05/31/2015 12:47 PM CDT Temperature 36.8 ??C (98.2 ??F) 05/31/2015 12:47 PM C DT Respiratory Rate - - Oxygen Saturation 96% 05/31/2015 12:47 PM CDT Inhaled Oxygen Concentration - - Weight 99.4 kg (219 lb 2 oz) 05/31/2015 12:47 PM CDT Height 165.1 cm (5' 5 ) 05/31/2015 12:47 PM CDT Body Mass Index 36.46 05/31/2015 12:47 PM CDT documented in this encounter Medications [...] Priority Date/Time Associated Diagnosis Comments PROTIME-INR Routine 06/04/2015 7:20 AM CDT PROTIME-INR Routine 06/03/2015 6:07 AM CDT PROTIME-INR Routine 06/02/2015 6:44 AM CDT PROTIME-INR Routine 06/01/2015 7:16 AM CDT PROTIME-INR Routine 05/31/2015 8:41 AM CDT PROTIME-INR Routine 05/30/2015 6:50 AM CDT PROTIME-INR Routine 05/29/2015 7:31 AM CDT PROTIME-INR Routine 05/28/2015 7:19 AM CDT PROTIME-INR Routine 05/27/2015 6:32 AM CDT CBC WITH AUTO DIFFERENTIAL Routine 05/26/2015 2:05 PM CDT CREATININE WITH GFR Routine 05/26/2015 7 :09 AM CDT PROTIME-INR Routine 05/26/2015 7:09 AM CDT PROTIME-INR Routine 05/26/2015 7:09 AM CDT documented in this encounter Results * (ABNORMAL) Protime-INR (06/04/2015 7:20 AM CDT) [facility] PT 28.3(H) 11.8 - 14.5 SECONDS Comment:New Reference Range in use at [facility] 04/12/2015 INR 2.62 0.01 - 5.99 Comment: Recommended Therapeutic range for Oral Anticoagulant Therapy No anti-coagulation therapy ? Normal Range: ?0.8-1.4 Anti-coagulation therapy ? Low intensity therapy ?2.0-3.0 ? High intensity therapy ?? 2.5-3.5 Critical Value ? Greater than or equal to 6.0 Patients should be monitored for serious bleeding. ?? 06/04/2015 7:20 AM CDT 06/04/2015 8:20 AM CDT us Hong Holder MD LAB BLOOD ORDERABLES Christen l Result Performing Organization Address [facility] de Phone Number [facility] HISTORICAL RESULTS * (ABNORMAL) Protime-INR (06/03/2015 6:07 AM CDT) PT 27.0(H) 11.8 - 14.5 SECONDS Comment:New Reference Range in use at [facility] 04/12/2015 INR 2.47 0.01 - 5.99 Comment: Recommended Therapeutic range for Oral Anticoagulant Therapy No anti-coagulation therapy ? Normal Range: ?0.8-1.4 Anti-coagulation therapy ? Low intensity therapy ?2.0-3.0 ? High intensity therapy ?? 2.5-3.5 Critical Value ? Greater than or equal to 6.0 Patients should be monitored for serious bleeding. ?? 06/03/2015 6:07 AM CDT 06/03/2015 7:37 AM CDT us Hong Holder MD LAB BLOOD ORDERABLES Christen l Result Performing Organization Address [facility] Co de Phone Number [facility] HISTORICAL RESULTS * (ABNORMAL) Protime-INR (06/02/2015 6:44 AM CDT) PT 27.3(H) 11.8 - 14.5 SECONDS Comment:New Reference Range in use at [facility] 04/12/2015 INR 2.51 0.01 - 5.99 Comment: Recommended Therapeutic range for Oral Anticoagulant Therapy No anti-coagulation therapy ? Normal Range: ?0.8-1.4 Anti-coagulation therapy ? Low intensity therapy ?2.0-3.0 ? High intensity therapy ?? 2.5-3.5 Critical Value ? Greater than or equal to 6.0 Patients should be monitored for serious bleeding. ?? 06/02/2015 6:44 AM CDT 06/02/2015 7:08 AM CDT Hong Holder MD LAB BLOOD ORDERABLES Christen farooq Result [facility] HISTORICAL RESULTS * (ABNORMAL) Protime-INR (06/01/2015 7:16 AM CDT) [facility] PT 26.3(H) 11.8 - 14.5 SECONDS Comment:New Reference Range in use at [facility] 04/12/2015 INR 2.39 0.01 - 5.99 06/01/2015 8:[address] [facility] HISTORICAL RESULTS Comment: Recommended Therapeutic range for Oral Anticoagulant Therapy No anti-coagulation therapy ? Normal Range: ?0.8-1.4 Anti-coagulation therapy ? Low intensity therapy ?2.0-3.0 ? High intensity therapy ?? 2.5-3.5 Critical Value ? Greater than or equal to 6.0 Patients should be monitored for serious bleeding. ?? 06/01/2015 7:16 AM CDT 06/01/2015 7:53 AM CDT Hong Holder MD LAB BLOOD ORDERABLES Christen l Result Performing Organization Address [facility] de Phone Number [facility] HISTORICAL RESULTS * (ABNORMAL) Protime-INR (05/31/2015 8:41 AM CDT) PT 25.9(H) 11.8 - 14.5 SECONDS Comment:New Reference Range in use at [facility] 04/12/2015 INR 2.34 0.01 - 5.99 Comment: Recommended Therapeutic range for Oral Anticoagulant Therapy No anti-coagulation therapy ? Normal Range: ?0.8-1.4 Anti-coagulation therapy ? Low intensity therapy ?2.0-3.0 ? High intensity therapy ?? 2.5-3.5 Critical Value ? Greater than or equal to 6.0 Patients should be monitored for serious bleeding. ?? 05/31/2015 8:41 AM CDT 05/31/2015 9:17 AM CDT Hong Holder MD LAB BLOOD ORDERABLES Christen l Result Performing Organization Address [facility] de Phone Number [facility] HISTORICAL RESULTS * (ABNORMAL) Protime-INR (05/30/2015 6:50 AM CDT) PT 23.4(H) 11.8 - 14.5 SECONDS Comment:New Reference Range in use at [facility] 04/12/2015 INR 2.07 0.01 - 5.99 Comment: Recommended Therapeutic range for Oral Anticoagulant Therapy No anti-coagulation therapy ? Normal Range: ?0.8-1.4 Anti-coagulation therapy ? Low intensity therapy ?2.0-3.0 ? High intensity therapy ?? 2.5-3.5 Critical Value ? Greater than or equal to 6.0 Patients should be monitored for serious bleeding. ?? 05/30/2015 6:50 AM CDT 05/30/2015 7:13 AM CDT us Hong Holder MD LAB BLOOD ORDERABLES Christen l Result Performing Organization Address [facility] Co de Phone Number [facility] HISTORICAL RESULTS * (ABNORMAL) Protime-INR (05/29/2015 7:31 AM CDT) PT 23.9(H) 11.8 - 14.5 SECONDS Comment:New Reference Range in use at [facility] 04/12/2015 INR 2.12 0.01 - 5.99 Comment: Recommended Therapeutic range for Oral Anticoagulant Therapy No anti-coagulation therapy ? Normal Range: ?0.8-1.4 Anti-coagulation therapy ? Low intensity therapy ?2.0-3.0 ? High intensity therapy ?? 2.5-3.5 Critical Value ? Greater than or equal to 6.0 Patients should be monitored for serious bleeding. ?? 05/29/2015 7:31 AM CDT 05/29/2015 8:12 AM CDT us Hong Holder MD LAB BLOOD ORDERABLES Christen l Result Performing Organization Address [facility] Co de Phone Number [facility] HISTORICAL RESULTS * (ABNORMAL) Protime-INR (05/28/2015 7:19 AM CDT) PT 23.2(H) 11.8 - 14.5 SECONDS Comment:New Reference Range in use at [facility] 04/12/2015 INR 2.04 0.01 - 5.99 Comment: Recommended Therapeutic range for Oral Anticoagulant Therapy No anti-coagulation therapy ? Normal Range: ?0.8-1.4 Anti-coagulation therapy ? Low intensity therapy ?2.0-3.0 ? High intensity therapy ?? 2.5-3.5 Critical Value ? Greater than or equal to 6.0 Patients should be monitored for serious bleeding. ?? 05/28/2015 7:19 AM CDT 05/28/2015 8:22 AM CDT Hong Holder MD LAB BLOOD ORDERABLES Christen l Result [facility] HISTORICAL RESULTS * (ABNORMAL) Protime-INR (05/27/2015 6:32 AM CDT) [facility] Signature PT 25.0(H) 11.8 - 14.5 SECONDS Comment:New Reference Range in use at [facility] 04/12/2015 INR 2.24 0.01 - 5.99 Comment: Recommended Therapeutic range for Oral Anticoagulant Therapy No anti-coagulation therapy ? Normal Range: ?0.8-1.4 Anti-coagulation therapy ? Low intensity therapy ?2.0-3.0 ? High intensity therapy ?? 2.5-3.5 Critical Value ? Greater than or equal to 6.0 Patients should be monitored for serious bleeding. ?? 05/27/2015 6:32 AM CDT 05/27/2015 6:45 AM CDT Hong Holder MD LAB BLOOD ORDERABLES Christen farooq Result [facility] HISTORICAL RESULTS * (ABNORMAL) CBC with auto differential (05/26/2015 2:05 PM CDT) WBC 11.6(H) 4.6 - 10.2 x10 3/ul RBC 3.69(L) 3.76 - 4.80 x10 6/ul Hemoglobin 9.8(L) 11.0 - 15.0 g/dl Hct 31.9(L) 33.0 - 43.0 % MCV 86.4 80.0 - 97.0 fl MCH 26.6(L) 27.0 - 31.2 pg 05/26/2015 2:27 PM CDT [facility] MCHC 30.7(L) 31.8 - 35.4 g/dl 05/26/2015 2:27 PM CDT [facility] HISTORICAL RESULTS RDW 18.5(H) 11.6 - 14.8 % 05/26/2015 2:27 PM CDT [facility] HISTORICAL RESULTS Plt Count 254 124 - 400 x10 3/ul MPV 12.7(H) 7.4 - 10.4 fl Differential Method AUTOMATED DIFF --------- -- Neut % 83.0 37.0 - 85.0 % Immature Gran % 0.3 0.0 - 3.0 % Lymph % 4.1(L) 5.0 - 45.0 % Spalding % 12.1 3.0 - 15.0 % 05/26/2015 2:[address] [facility] HISTORICAL RESULTS Eos % 0.2 0.0 - 7.0 % 05/26/2015 2:[address] [facility] HISTORICAL RESULTS Baso % 0.3 0.0 - 2.0 % ABSOLUTE COUNTS ABSOLUTE COUNTS --------- -- 05/26/2015 2:[address] [facility] HISTORICAL RESULTS Absolute Neuts (auto) 9.6(H) 1.7 - 8.7 x10 3/ul 05/26/2015 2:[address] [facility] HISTORICAL RESULTS Immature Gran # 0.0 0.0 - 0.3 x10 3/ul 05/26/2015 2:[address] [facility] HISTORICAL RESULTS Absolute Lymphs (auto) 0.5 0.2 - 4.6 x10 3/ul 05/26/2015 2:[address] [facility] HISTORICAL RESULTS Absolute Monos (auto) 1.4 0.1 - 1.5 x10 3/ul 05/26/2015 2:[address] [facility] HISTORICAL RESULTS Absolute Eos (auto) 0.0 0.0 - 0.7 x10 3/ul 05/26/2015 2:[address] [facility] HISTORICAL RESULTS Absolute Basos (auto) 0.0 0.0 - 0.2 x10 3/ul 05/26/2015 2:[address] [facility] HISTORICAL RESULTS 05/26/2015 2:05 PM CDT 05/26/2015 2:17 PM CDT us Hong Holder MD LAB BLOOD ORDERABLES Christen farooq Result [facility] HISTORICAL RESULTS * Creatinine with GFR (05/26/2015 7:09 AM CDT) Creatinine 1.1 0.5 - 1.1 mg/dL Comment: NOTE: Estimated GFR (Cockroft-Gault) will NOT be calculated unless patient Height and Weight were entered. Also, Kidney Disease Stage (GFR) and Estimated GFR (Cockroft-Gault) will NOT be calculated if Creatinine result is <0.2. Kidney Disease Stage 52 mL/MIN 05/26/2015 8:[address] [facility] HISTORICAL RESULTS Comment: NOTE; ??The GFR is [...] ? Kidney failure or on dialysis @ 05/26/2015 7:09 AM CDT 05/26/2015 7:40 AM CDT us Hong Hloder MD LAB URINE ORDERABLES Christen farooq Result [facility] HISTORICAL RESULTS * (ABNORMAL) Protime-INR (05/26/2015 7:09 AM CDT) PT 30.5(H) 11.8 - 14.5 SECONDS Comment:New Reference Range in use at [facility] 04/12/2015 INR 2.87 0.01 - 5.99 Comment: Recommended Therapeutic range for Oral Anticoagulant Therapy No anti-coagulation therapy ? Normal Range: ?0.8-1.4 Anti-coagulation therapy ? Low intensity therapy ?2.0-3.0 ? High intensity therapy ?? 2.5-3.5 Critical Value ? Greater than or equal to 6.0 Patients should be monitored for serious bleeding. ?? 05/26/2015 7:09 AM CDT 05/26/2015 7:40 AM CDT Hong Holder MD LAB BLOOD ORDERABLES Christen l Result Performing Organization Address [facility] de Phone Number [facility] HISTORICAL RESULTS * (ABNORMAL) Protime-INR (05/26/2015 7:09 AM CDT) [facility] Signature PT 31.6(H) 11.8 - 14.5 SECONDS Comment:New Reference Range in use at [facility] 04/12/2015 INR 3.00 0.01 - 5.99 Comment: Recommended Therapeutic range for Oral Anticoagulant Therapy No anti-coagulation therapy ? Normal Range: ?0.8-1.4 Anti-coagulation therapy ? Low intensity therapy ?2.0-3.0 ? High intensity therapy ?? 2.5-3.5 Critical Value ? Greater than or equal to 6.0 Patients should be monitored for serious bleeding. ?? 05/26/2015 7:09 AM CDT 05/26/2015 7:40 AM CDT Hong Holder MD LAB BLOOD ORDERABLES Christen l Result Performing Organization Address [facility] de Phone Number [facility] HISTORICAL RESULTS documented in this encounter Visit Diagnoses Diagnosis Contusion of scalp, subsequent encounter Cervicalgia Constipation Unspecified constipation Adverse effect of other opioids, subsequent encounter Muscle spasm of back Presence of prosthetic heart valve Type 2 diabetes mellitus with diabetic polyneuropathy (HCC) documented in this encounter Care Teams Documentation Clerk Relationship Specialty Start Date End Date Hong Holder MD [address] [facility] [address] [place] [id number] PCP - General 01/15/15 06/05/16 documented as of this encounter
--- OUTSIDE RECORDS SUMMARY | 2024-03-15 01:59 | XMS_ITS | Encounter Summary ---
Author Organization [facility] Healthcare Address [address] [place] [address] Care Team Providers Care Orthopaedic Technologist Name Role Phone Hong Holder MD Primary Care Provider [phone] [phone] Encounter Details Date Type Department Care Team (Late st Contact Info) Description 05/18/2015 5:19 PM FIRM ADMINISTRATOR Hospital Encounter [facility] Hong Holder MD [address] [facility] [address] [place] [address] Headache Social History Tobacco Use Types Packs/Day Years Used Date Smoking Tobacco: Never Alcohol Use Standard Drinks/Week Comments No 0 (1 standard drink = 0.6 oz pur e alcohol) Comments Unknown Sex and Gender Information Value Date Recorded Sex Assigned at Not on file 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 ??No acute intracranial abnormality. 2. ??Mild nonspecific white matter changes, likely chronic microangiopathy. THIS IS AN ELECTRONICALLY VERIFIED REPORT 05/18/2015 6:00 PM: ??Diane Barker M.D. Bhavna Ramires:rodrigo 06:00 PM 06:00 PM MON [EOD] Narrative 05/18/2015 6:04 PM FIRM ADMINISTRATOR EXAMINATION: ??CT head HISTORY: ??Headaches for 10 days. ??Bilateral temporal pain. COMPARISON: ??No comparison TECHNIQUE: ??Axial images through the brain without administration of contrast. FINDINGS: ??There is no acute intracranial hemorrhage, acute infarction, or mass lesion. ??There are mild patchy hypodensities in the cerebral white matter that are nonspecific but most likely due to chronic microangiopathy. ??The ventricles, sulci, cisterns are within normal limits for age. ??There are intracranial atherosclerotic calcifications. ??There are bilateral lens implants. ??The imaged portions of the paranasal sinuses are clear. ??The mastoid air cells are clear. ??Bones and extracranial soft tissues are unremarkable. Procedure Note Provider, MD Casi - 07/25/2020 EXAMINATION: CT head HISTORY: Headaches for 10 days. Bilateral temporal pain. COMPARISON: No comparison TECHNIQUE: Axial images through the brain without administration ofcontrast. FINDINGS: There is no acute intracranial hemorrhage, acute infarction, or mass lesion. There are mild patchy hypodensities in the cerebral whitematter that are nonspecific but most likely due to chronic microangiopathy. The ventricles, sulci, cisterns are within normal limits for age. There are intracranial atherosclerotic calcifications. There are bilateral lens implants. The imaged portions of the paranasal sinuses are clear. The mastoid air cells are clear. Bones and extracranial soft tissues are unremarkable. IMPRESSION: 1. No acute intracranial abnormality. 2. Mild nonspecific white matter changes, likely chronic microangiopathy. THIS IS AN ELECTRONICALLY VERIFIED REPORT 05/18/2015 6:00 PM: Diane Barker M.D. Diane Barker M.D. MB:rodrigo 06:00 PM 06:00 PM MON [EOD] us Hong Holder MD IMG CT PROCEDURES Final R esult documented in this encounter Visit Diagnoses Diagnosis Headache documented in this encounter Care Teams Orthopaedic Technologist Relationship Specialty Start Date End Date Hong Holder MD [address] [facility] [address] [place] [address] PCP - General 01/15/15 06/05/16 documented as of this encounter
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
--- OUTSIDE RECORDS SUMMARY | 2024-03-15 01:59 | XMS_ITS | Encounter Summary ---
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; Anemia; Gastro-esophageal reflux disease without esophagitis; 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 Social History Tobacco Use Types Packs/Day Years Used Date Smoking Tobacco: Never Alcohol Use Standard Drinks/Week Comments No 0 (1 standard drink = 0.6 oz pur e alcohol) Comments Unknown Sex and Gender Information Value Date Recorded Sex Assigned at Not on file 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 Gender Identity Not on file Sexual Orientation Not on file documented as of this encounter Last Filed Vital Signs Vital Sign Reading Time Taken Comments Blood Pressure 148/77 06/04/2015 3:34 PM CDT Pulse 80 06/04/2015 3:34 PM CDT Temperature 36.4 ??C (97.5 ??F) 06/04/2015 3:34 PM CD T Respiratory Rate - - Oxygen Saturation 92% 06/04/2015 3:34 PM CDT Inhaled Oxygen Concentration - - Weight 100.7 kg (222 lb) 06/04/2015 3:34 PM CDT Height 165.1 cm (5' 5 ) 06/04/2015 3:34 PM CDT Body Mass Index 36.94 06/04/2015 3:34 PM CDT documented in this encounter Medications [...] Procedure Name Priority Date/Time Associated Diagnosis Comments STRESS LEXISCAN/MYOVIEW Routine 06/05/2015 2:00 PM CDT NM MPI SPECT (REST AND/OR STRESS) MULTIPLE STUDIES Routine 06/05/2015 2:00 PM CDT POTASSIUM LEVEL Routine 06/05/2015 8:41 AM CDT TROPONIN I Routine 06/05/2015 7:36 AM CDT BASIC METABOLIC PANEL Routine 06/05/2015 7:36 AM CDT VITAMIN B12 AND FOLATE Routine 6 6:03 AM CDT IRON PROFILE W/ IBC Routine 06/05/2015 6 :03 AM CDT CBC WITH AUTO DIFFERENTIAL Routine 06/05/2015 6:03 AM CDT PROTIME-INR Routine 06/05/2015 5:59 AM CDT TROPONIN I Routine 06/05/2015 1:49 AM CDT CARDIOLOGY REPORT 06/05/2015 12: 00 AM CDT TRANSTHORACIC ECHO (TTE) COMPLETE W DOPPLER/CF Routine 06/05/2015 12:00 AM CDT TROPONIN I Routine 06/04/2015 7:15 PM CDT THYROID FUNCTION CASCADE Routine 06/04/2015 2:02 PM CDT TROPONIN I Routine 06/04/2015 2:02 PM CDT TNI WITH LIPID PANEL Routine 06/04/2015 10:38 AM CDT CBC WITH AUTO DIFFERENTIAL Routine 06/04/2015 10:38 AM CDT APTT Routine 06/04/2015 10:38 AM CDT PROTIME-INR Routine 06/04/2015 10:38 AM CDT COMPREHENSIVE METABOLIC PANEL Routine 06/04/2015 10:38 AM CDT CARDIOLOGY REPORT 06/04/2015 12: 00 AM CDT XR CHEST 1 VIEW Routine 06/04/2015 12:00 AM CDT documented in this encounter Results * NM MPI SPECT (Rest and/or Stress) Multiple Studies (06/05/2015 2:00 PM CDT) Anatomical Region Laterality Modality Body N/A Nuclear Medicine 06/05/2015 2:0 0 PM CDT Impressions 06/05/2015 4:13 PM CDT 1. ??Normal myocardial perfusion study. 2. ??No scintigraphic evidence of myocardial ischemia. 3. ??Left ventricular ejection fraction of 71% poststress. 4. ??Normal left ventricular wall motion. THIS IS AN ELECTRONICALLY VERIFIED REPORT 06/05/2015 4:10 PM: ??Fili Hernandez M.D. Fili Hernandez M.D. CH: 04:10 PM 04:10 PM [facility] [EOD] Narrative 06/05/2015 4:13 PM CDT EXAMINATION: ??MYOCARDIAL PERFUSION IMAGING: REST AND LEXISCAN STRESS TETROFOSMIN HISTORY: ??Chest pain, hypertension, diabetes, abnormal baseline EKG, midsternal chest pain beginning today. TECHNIQUE: ??The patient received 10.5 mCi of [id number] IV at rest. Subsequently, SPECT images of the heart were obtained. Subsequently, the patient received 0.4 mg of Lexiscan IV bolus over 10 seconds. ??Thirty seconds after the bolus, the patient received 30 mCi of Tc-99m tetrofosmin IV. ?? Subsequently, ??SPECT images of the heart were obtained. IV site left arm. COMPARISON: ??None. FINDINGS: Image quality is adequate at rest and adequate at stress. There are no perfusion abnormalities. The left ventricular cavity size is normal. Gated tomographic images demonstrate normal wall motion and wall thickening with a left ventricular ejection fraction of 71% poststress. Procedure Note Provider, MD Casi - 07/25/2020 EXAMINATION: MYOCARDIAL PERFUSION IMAGING: REST AND LEXISCAN STRESS TETROFOSMIN HISTORY: Chest pain, hypertension, diabetes, abnormal baseline EKG, midsternal chest pain beginning today. TECHNIQUE: The patient received 10.5 mCi of [id number] IV atrest. Subsequently, SPECT images of the heart were obtained. Subsequently, the patient received 0.4 mg of Lexiscan IV bolus over 10 seconds. Thirtyseconds after the bolus, the patient received 30 mCi of Tc-99m tetrofosmin IV. Subsequently, SPECT images of the heart were obtained. IV site leftarm. COMPARISON: None. FINDINGS: Image quality is adequate at rest and adequate at stress. There are no perfusion abnormalities. The left ventricular cavity size is normal. Gated tomographic images demonstrate normal wall motion and wallthickening with a left ventricular ejection fraction of 71% poststress. IMPRESSION: 1. Normal myocardial perfusion study. 2. No scintigraphic evidence of myocardial ischemia. 3. Left ventricular ejection fraction of 71% poststress. 4. Normal left ventricular wall motion. THIS IS AN ELECTRONICALLY VERIFIED REPORT 06/05/2015 4:10 PM: Fili Hernandez M.D. Fili Hernandez M.D. CH: 04:10 PM 04:10 PM [facility] [EOD] us Sultan Ximena Stone MD IMG NM PROCEDURES Final Resul t * Stress Lexiscan/Myoview (06/05/2015 2:00 PM CDT) Anatomical Region Laterality Modality Nuclear Medicine 06/05/2015 2:00 PM CDT Narrative 06/05/2015 4:59 PM CDT DATE OF SERVICE: 06/05/2015 INDICATIONS: ??Precordial chest discomfort. The resting heart rate was 74. ??Resting blood pressure 137/54. ??Resting oxygen saturation 98%. ??Resting EKG showed normal sinus, left axis deviation, frequent PVCs, ST changes, poor R-wave progression from V1-V4. 0.4 mg of Lexiscan was injected intravenously over 15 seconds. ??Myoview injected 15 seconds after Lexiscan injection. ??Blood pressure and 12 lead EKG were obtained every 2-3 minutes. ??Pulse oximetry and rhythm was continuously monitored. ??Leg exercises were done for chronotropic stimulation. ??The heart rate increased with the test and reached a peak of 96 at 5 minutes, 95 at 4 minutes. ??Blood pressure was 160/47 at 3 minutes, oxygen saturation 99% at 3 minutes. ??There was some chest discomfort with the test which disappeared within a few seconds of stopping, could be angina, I'm not sure. ??The PVCs decreased with the test. ??There was no nausea, vomiting, coughing or wheezing. ??No EKG changes. ??The recovery was uneventful and Myoview imaging was then started. CONCLUSIONS: 1. No major side effects from Lexiscan. 2. No new EKG changes. ?? 3. Chest discomfort with exercise, significance unknown. 4. Myoview scan results to follow. [facility] Job: [id number] Dictated By: Sultan Taz Stone MD Dictated For: Sultan Taz Stone MD [EOD] Procedure Note Provider, MD Casi - 07/25/2020 DATE OF SERVICE: 06/05/2015 INDICATIONS: Precordial chest discomfort. The resting heart rate was 74. Resting blood pressure 137/54. Restingoxygen saturation 98%. Resting EKG showed normal sinus, left axisdeviation, frequent PVCs, ST changes, poor R-wave progression fromV1-V4. 0.4 mg of Lexiscan was injected intravenously over 15 seconds. Myoviewinjected 15 seconds after Lexiscan injection. Blood pressure and 12 leadEKG were obtained every 2-3 minutes. Pulse oximetry and rhythm wascontinuously monitored. Leg exercises were done for chronotropicstimulation. The heart rate increased with the test and reached a peak of96 at 5 minutes, 95 at 4 minutes. Blood pressure was 160/47 at 3 minutes,oxygen saturation 99% at 3 minutes. There was some chest discomfort withthe test which disappeared within a few seconds of stopping, could beangina, I'm not sure. The PVCs decreased with the test. There was nonausea, vomiting, coughing or wheezing. No EKG changes. The recovery wasuneventful and Myoview imaging was then started. CONCLUSIONS: 1. No major side effects from Lexiscan. 2. No new EKG changes. 3. Chest discomfort with exercise, significance unknown. 4. Myoview scan results to follow. [facility] Job: [id number] Dictated By: Sultan Taz Stone MD Dictated For: Sultan Taz Stone MD [EOD] Sultan Ximena Stone MD IMG NM PROCEDURES Final Resul t * Potassium (06/05/2015 8:41 AM CDT) Potassium 4.3 3.3 - 5.1 mmol/L 06/05/2015 8:41 AM CDT 06/05/2015 9:02 AM CDT Sultan Ximena Stone MD LAB BLOOD ORDERABLES Final Re sult [facility] HISTORICAL RESULTS * (ABNORMAL) Basic metabolic panel (06/05/2015 7:36 AM CDT) Sodium 141 135 - 145 mmol/L Potassium 5.3(H) 3.3 - 5.1 mmol/L Comment: REVIEW WITH CAUTION: ?? REDRAW SPECIMEN SLIGHTLY HEMOLYZED: Hemolysis interferes with the above test. Chloride 98 96 - 108 mmol/L Carbon Dioxide 32 22 - 32 mmol/L Anion Gap 11 7 - 16 Glucose 101(H) 70 - 100 mg/dL BUN 19 8 - 23 mg/dL Creatinine 0.8 0.5 - 1.1 mg/dL Comment: NOTE: Estimated GFR (Cockroft-Gault) will NOT be calculated unless patient Height and Weight were entered. Also, Kidney Disease Stage (GFR) and Estimated GFR (Cockroft-Gault) will NOT be calculated if Creatinine result is <0.2. Kidney Disease Stage 75 mL/MIN Comment: NOTE; ??The GFR is an estimated [...] or on dialysis @ Est GFR (Cockcroft-G) 76 ml/MIN Calcium 10.5(H) 8.8 - 10.2 mg/dL 06/05/2015 7:36 AM CDT 06/05/2015 7:42 AM CDT us Indiana Shah CARDING DOUBLER LAB BLOOD ORDERABLES Final Res ult [facility] HISTORICAL RESULTS * Troponin I (06/05/2015 7:36 AM CDT) Troponin I < 0.300 0.000 - 0.300 ng/mL Comment: Reference using PRITESH Chemiluminescence ? Negative: Repeat in 4-6 hours as indicated. 06/05/2015 7:36 AM CDT 06/05/2015 7:42 AM CDT us Indiana Shah CARDING DOUBLER LAB BLOOD ORDERABLES Final Res ult Performing Organization Address [facility] Co de Phone Number [facility] HISTORICAL RESULTS * (ABNORMAL) Iron profile w/ IBC (06/05/2015 6:03 AM CDT) Iron 32(L) 37 - 145 ug/dL Comment:Fasting specimen pre ferred TIBC 279 228 - 428 ug/dL Transferrin % Sat 11(L) 20 - 50 % 06/05/2015 6:03 AM CDT 06/05/2015 6:06 AM CDT us Sultan Xiemna Stone MD LAB BLOOD ORDERABLES Final Re sult [facility] HISTORICAL RESULTS * (ABNORMAL) Vitamin B12 and Folate (06/05/2015 6:03 AM CDT) Pathologist [facility] Vitamin B12 455 211 - 946 pg/mL 06/05/2015 6:58 AM CDT [facility] HISTORICAL RESULTS Comment:FASTING IS RECOMMEND ED Folate 28.3(H) 7.3 - 26.1 ng/mL 06/05/2015 7:32 AM CDT [facility] [employer] HISTORICAL RESULTS Comment: Fasting suggested. 06/05/2015 6:03 AM CDT 06/05/2015 6:06 AM CDT us Sultan Ximena Stone MD LAB BLOOD ORDERABLES Final Re sult [facility] HISTORICAL RESULTS * (ABNORMAL) CBC with auto differential (06/05/2015 6:03 AM CDT) [facility] WBC 5.9 4.6 - 10.2 x10 3/ul 06/05/2015 6:16 AM CDT [facility] HISTORICAL RESULTS RBC 3.68(L) 3.76 - 4.80 x10 6/ul 06/05/2015 6:16 AM CDT [facility] HISTORICAL RESULTS Hemoglobin 9.8(L) 11.0 - 15.0 g/dl 06/05/2015 6:16 AM CDT [facility] HISTORICAL RESULTS Hct 32.3(L) 33.0 - 43.0 % 06/05/2015 6:16 AM CDT [facility] [employer] HISTORICAL RESULTS MCV 87.8 80.0 - 97.0 fl 06/05/2015 6:16 AM CDT [facility] [employer] HISTORICAL RESULTS MCH 26.6(L) 27.0 - 31.2 pg 06/05/2015 6:16 AM CDT [facility] HISTORICAL RESULTS MCHC 30.3(L) 31.8 - 35.4 g/dl 06/05/2015 6:16 AM CDT [facility] [employer] HISTORICAL RESULTS RDW 17.5(H) 11.6 - 14.8 % 06/05/2015 6:16 AM CDT [facility] [employer] HISTORICAL RESULTS Plt Count 435(H) 124 - 400 x10 3/ul 06/05/2015 6:16 AM CDT [facility] HISTORICAL RESULTS MPV 11.8(H) 7.4 - 10.4 fl Differential Method AUTOMATED DIFF --------- -- Neut % 49.7 37.0 - 85.0 % Immature Gran % 0.5 0.0 - 3.0 % Lymph % 34.1 5.0 - 45.0 % 06/05/2015 6:16 AM [facility]ULTS [place] % 11.5 3.0 - 15.0 % 06/05/2015 6:16 AM [facility] RESULTS Eos % 3.2 0.0 - 7.0 % 06/05/2015 6:16 AM [facility] RESULTS Baso % 1.0 0.0 - 2.0 % 06/05/2015 6:16 AM [facility] RESULTS ABSOLUTE COUNTS ABSOLUTE COUNTS --------- -- 06/05/2015 6:16 AM [facility] RESULTS Absolute Neuts (auto) 2.9 1.7 - 8.7 x10 3/ul 06/05/2015 6:16 AM [facility]ULTS Immature Gran # 0.0 0.0 - 0.3 x10 3/ul 06/05/2015 6:16 AM [facility]ISTOR[facility] RESULTS Absolute Lymphs (auto) 2.0 0.2 - 4.6 x10 3/ul 06/05/2015 6:16 AM [facility]IST[facility] RESULTS Absolute Monos (auto) 0.7 0.1 - 1.5 x10 3/ul 06/05/2015 6:16 AM [facility] RESULTS Absolute Eos (auto) 0.2 0.0 - 0.7 x10 3/ul 06/05/2015 6:16 AM [facility]IST[facility] RESULTS Absolute Basos (auto) 0.1 0.0 - 0.2 x10 3/ul 06/05/2015 6:03 AM CDT 06/05/2015 6:06 AM CDT us Indiana Shah CARDING DOUBLER LAB BLOOD ORDERABLES Final Res ult Performing Organization Address [facility] de Phone Number [facility] HISTORICAL RESULTS * (ABNORMAL) Protime-INR (06/05/2015 5:59 AM CDT) Pathologist [facility] PT 30.3(H) 11.8 - 14.5 SECONDS Comment:New Reference Range in use at [facility] 04/12/2015 INR 2.85 0.01 - 5.99 Comment: Recommended Therapeutic range for Oral Anticoagulant Therapy No anti-coagulation therapy ? Normal Range: ?0.8-1.4 Anti-coagulation therapy ? Low intensity therapy ?2.0-3.0 ? High intensity therapy ?? 2.5-3.5 Critical Value ? Greater than or equal to 6.0 Patients should be monitored for serious bleeding. ?? 06/05/2015 5:59 AM CDT 06/05/2015 6:06 AM CDT us Sultan Ximena Stone MD LAB BLOOD ORDERABLES Final Re sult Performing Organization Address [facility] de Phone Number [facility] HISTORICAL RESULTS * Troponin I (06/05/2015 1:49 AM CDT) Pathologist [facility] Troponin I < 0.300 0.000 - 0.300 ng/mL Comment: Reference using PRITESH Chemiluminescence ? Negative: Repeat in 4-6 hours as indicated. 06/05/2015 1:49 AM CDT 06/05/2015 2:[address] [facility] [place] Shah CARDING DOUBLER LAB BLOOD ORDERABLES Final Res ult [facility] HISTORICAL RESULTS * CARDIOLOGY REPORT (06/05/2015 12:00 AM CDT) Anatomical Region Laterality Modality Other Narrative 06/05/2015 12:00 AM CDT Ordered by an unspecified provider. Result [facility] Historical Provider CV CARDIAC SERVICES [facility] SRIDHARDOMENIC Final Result * Transthoracic Echo Complete W Doppler/CF (06/05/2015 12:00 AM CDT) Anatomical Region Laterality Modality Ultrasound 06/05/2015 Narrative 06/05/2015 3:25 PM CDT Results viewable in EMR, Cardiovascular [EOD] Procedure Note Provider, Casi, - 07/25/2020 Results viewable in EMR, Cardiovascular [EOD] Result [facility] Sultan Ximena Stone MD CV ECHO PROCEDURES Final Resu lt * Troponin I (06/04/2015 7:15 PM CDT) Troponin I < 0.300 0.000 - 0.300 ng/mL Comment: Reference using PRITESH Chemiluminescence ? Negative: Repeat in 4-6 hours as indicated. 06/04/2015 7:15 PM CDT 06/04/2015 7:55 PM CDT [place] Shah CARDING DOUBLER LAB BLOOD ORDERABLES Final Res ult [facility] HISTORICAL RESULTS * TSH reflex to free T4 (06/04/2015 2:02 PM CDT) TSH W REFLEX TO FT4 2.09 0.27 - 4.20 uIU/mL 06/04/2015 2:02 PM CDT 06/04/2015 2:10 PM CDT us [place] Shah CARDING DOUBLER LAB BLOOD ORDERABLES Final Res ult Performing Organization Address [facility] Co de Phone Number [facility] HISTORICAL RESULTS * Troponin I (06/04/2015 2:02 PM CDT) Troponin I < 0.300 0.000 - 0.300 ng/mL Comment: Reference using PRITESH Chemiluminescence ? Negative: Repeat in 4-6 hours as indicated. 06/04/2015 2:02 PM CDT 06/04/2015 2:10 PM CDT us Historical Provider LAB BLOOD ORDERABLES Christen l Result Performing Organization Address [facility] Co de Phone Number [facility] HISTORICAL RESULTS * TNI with LIPID PANEL (06/04/2015 10:38 AM CDT) Troponin I < 0.300 0.000 - 0.300 ng/mL Comment: Reference using PRITESH Chemiluminescence ? Negative: Repeat in 4-6 hours as indicated. Triglycerides 99 0 - 199 mg/dL Comment:12 hr pc highly ángel mmended for Triglyceride Cholesterol 156 0 - 199 mg/dL Comment: Borderline: ??200-239 High Risk: ?? >239 HDL Cholesterol 46 40 - 60 mg/dL Comment: Major Risk ?< 40 mg/dL Moderate Risk ?40-60 mg/dL Negative Risk ?? > 60 mg/dL LDL Cholesterol, Calc 90 0 - 130 mg/dL Comment:High Risk > 159 mg/d L Cholesterol/HDL Ratio 3.4 Comment: Cholesterol / HDL Ratio 3.5:1 or less is desirable. Cholesterol / HDL Ratio greater than 5:1 is considered higher risk for developing heart disease. 06/04/2015 10:3 8 AM CDT 06/04/2015 10:44 AM CDT Historical Provider LAB BLOOD ORDERABLES Christen l Result Performing Organization Address [facility] Co de Phone Number [facility] HISTORICAL RESULTS * (ABNORMAL) Protime-INR (06/04/2015 10:38 AM CDT) PT 28.8(H) 11.8 - 14.5 SECONDS Comment:New Reference Range in use at [facility] 04/12/2015 INR 2.67 0.01 - 5.99 Comment: Recommended Therapeutic range for Oral Anticoagulant Therapy No anti-coagulation therapy ? Normal Range: ?0.8-1.4 Anti-coagulation therapy ? Low intensity therapy ?2.0-3.0 ? High intensity therapy ?? 2.5-3.5 Critical Value ? Greater than or equal to 6.0 Patients should be monitored for serious bleeding. ?? 06/04/2015 10:3 8 AM CDT 06/04/2015 10:44 AM CDT Historical Provider LAB BLOOD ORDERABLES Christen l Result Performing Organization Address [facility] de Phone Number [facility] HISTORICAL RESULTS * (ABNORMAL) aPTT (06/04/2015 10:38 AM CDT) APTT 61(H) 26 - 33 SECONDS Comment:New Reference Range in use at [facility] 04/12/2015 06/04/2015 10:3 8 AM CDT 06/04/2015 10:44 AM CDT us Historical Provider LAB BLOOD ORDERABLES Christen l Result [facility] HISTORICAL RESULTS * (ABNORMAL) Comprehensive metabolic panel (06/04/2015 10:38 AM CDT) [facility] Sodium 138 135 - 145 mmol/L Potassium 4.6 3.3 - 5.1 mmol/L Chloride 95(L) 96 - 108 mmol/L Carbon Dioxide 32 22 - 32 mmol/L Anion Gap 11 7 - 16 Glucose 156(H) 70 - 100 mg/dL BUN 20 8 - 23 mg/dL Creatinine 0.9 0.5 - 1.1 mg/dL Comment: NOTE: Estimated GFR (Cockroft-Gault) will NOT be calculated unless patient Height and Weight were entered. Also, Kidney Disease Stage (GFR) and Estimated GFR (Cockroft-Gault) will NOT be calculated if Creatinine result is <0.2. Kidney Disease Stage 66 mL/MIN Comment: NOTE; ??The GFR is an estimated [...] or on dialysis @ Est GFR (Cockcroft-G) 67 ml/MIN Calcium 10.8(H) 8.8 - 10.2 mg/dL 06/04/2015 11:10 AM [facility] Total Protein 6.7 6.4 - 8.3 g/dL Albumin 3.5 3.5 - 5.2 g/dL Globulin 3.2 2.3 - 3.5 gm/dL Albumin/Globulin Ratio 1.1 1.1 - 1.8 Total Bilirubin < 0.2 0.0 - 1.2 mg/dL AST 16 0 - 32 U/L ALT 14 0 - 33 U/L Alkaline Phosphatase 66 35 - 104 U/L 06/04/2015 10:3 8 AM T 06/04/2015 10:44 AM CDT us Historical Provider LAB BLOOD ORDERABLES Christen oseas Result [facility] HISTORICAL RESULTS * (ABNORMAL) CBC with auto differential (06/04/2015 10:38 AM CDT) WBC 8.1 4.6 - 10.2 x10 3/ul 06/04/2015 10:49 AM CDT [facility] HISTORICAL RESULTS RBC 3.42(L) 3.76 - 4.80 x10 6/ul 06/04/2015 10:49 AM CDT [facility] HISTORICAL RESULTS Hemoglobin 9.2(L) 11.0 - 15.0 g/dl 06/04/2015 10:49 AM CDT [facility] HISTORICAL RESULTS Hct 30.2(L) 33.0 - 43.0 % 06/04/2015 10:49 AM CDT [facility] HISTORICAL RESULTS MCV 88.3 80.0 - 97.0 fl 06/04/2015 10:49 AM CDT [facility] HISTORICAL RESULTS MCH 26.9(L) 27.0 - 31.2 pg 06/04/2015 10:49 AM CDT [facility] HISTORICAL RESULTS MCHC 30.5(L) 31.8 - 35.4 g/dl 06/04/2015 10:49 AM CDT [facility] HISTORICAL RESULTS RDW 17.5(H) 11.6 - 14.8 % 06/04/2015 10:49 AM CDT [facility] HISTORICAL RESULTS Plt Count 426(H) 124 - 400 x10 3/ul 06/04/2015 10:49 AM CDT [facility] HISTORICAL RESULTS MPV 11.4(H) 7.4 - 10.4 fl 06/04/2015 10:49 AM CDT [facility] HISTORICAL RESULTS Differential Method AUTOMATED DIFF --------- -- 06/04/2015 10:49 AM CDT [facility] HISTORICAL RESULTS Neut % 65.2 37.0 - 85.0 % 06/04/2015 10:49 AM CDT [facility] HISTORICAL RESULTS Immature Gran % 0.4 0.0 - 3.0 % 06/04/2015 10:49 AM CDT [facility] HISTORICAL RESULTS Lymph % 21.6 5.0 - 45.0 % [place] % 9.3 3.0 - 15.0 % Eos % 2.5 0.0 - 7.0 % Baso % 1.0 0.0 - 2.0 % ABSOLUTE COUNTS ABSOLUTE COUNTS --------- -- Absolute Neuts (auto) 5.3 1.7 - 8.7 x10 3/ul Immature Gran # 0.0 0.0 - 0.3 x10 3/ul Absolute Lymphs (auto) 1.7 0.2 - 4.6 x10 3/ul Absolute Monos (auto) 0.8 0.1 - 1.5 x10 3/ul Absolute Eos (auto) 0.2 0.0 - 0.7 x10 3/ul Absolute Basos (auto) 0.1 0.0 - 0.2 x10 3/ul 06/04/2015 10:3 8 AM CDT 06/04/2015 10:44 AM CDT us Historical Provider LAB BLOOD ORDERABLES Christen oseas Result [facility] HISTORICAL RESULTS * CARDIOLOGY REPORT (06/04/2015 12:00 AM CDT) Anatomical Region Laterality Modality Other Narrative 06/04/2015 12:00 AM CDT Ordered by an unspecified provider. us Historical Provider CV CARDIAC SERVICES PROCE KAYCEE Final Result * XR Chest 1 View (06/04/2015 12:00 AM CDT) Anatomical Region Laterality Modality Body, Chest N/A Radiographic Jennifer ging 06/04/2015 Impressions 06/04/2015 11:58 AM CDT ??No evidence of acute cardiopulmonary abnormality. ??Mild cardiomegaly. THIS IS AN ELECTRONICALLY VERIFIED REPORT 06/04/2015 11:55 AM: ??Fili Hernandez M.D. Fili Hernandez M.D. CH: 11:55 AM 11:55 AM [facility] [EOD] Narrative 06/04/2015 11:58 AM CDT EXAMINATION: ??Frontal chest. HISTORY: ??Midsternal chest pain radiating to the back beginning today, shortness of breath. TECHNIQUE: ??AP semi upright chest. COMPARISON: ??None. FINDINGS: ??The heart is mildly enlarged. ??The patient is status post median sternotomy. ??Atheromatous changes are seen in the aortic arch. ??There is no focal consolidation. ??The left costophrenic sulcus is not fully included. ??No definite pleural effusion. ??No acute osseous abnormality is seen. Procedure Note Provider, Historical, - 07/25/2020 EXAMINATION: Frontal chest. HISTORY: Midsternal chest pain radiating to the back beginning today, shortness of breath. TECHNIQUE: AP semi upright chest. COMPARISON: None. FINDINGS: The heart is mildly enlarged. The patient is status postmedian sternotomy. Atheromatous changes are seen in the aortic arch. There isno focal consolidation. The left costophrenic sulcus is not fully included.No definite pleural effusion. No acute osseous abnormality is seen. IMPRESSION: No evidence of acute cardiopulmonary abnormality. Mild cardiomegaly. THIS IS AN ELECTRONICALLY VERIFIED REPORT 06/04/2015 11:55 AM: Fili Hernandez M.D. Fili Hernandez M.D. CH:sneha 11:55 AM 11:55 AM [facility] [EOD] Historical Provider MD VARGAS XR PROCEDURES Final R esult documented in this encounter Visit Diagnoses Diagnosis Other chest pain Essential (primary) hypertension Unspecified essential hypertension Type 2 diabetes mellitus with hyperglycemia (CMS/HCC) (HCC) Hyperlipidemia Other and unspecified hyperlipidemia Cervicalgia Presence of prosthetic heart valve Other long-term (current) drug therapy Anemia Unspecified anemia Gastro-esophageal reflux disease without esophagitis intermediate current use of anticoagulant documented in this encounter Care Teams Bag Presser Relationship Specialty Start Date End Date Hong Holder MD [address] [facility] [address] [place] [address] PCP - General 01/15/15 06/05/16 documented as of this encounter
[2024-03-15] MEDS: METOPROLOL TARTRATE 12.5 MG TABLET PO ×4 (05:34→23:58)
[2024-03-15] MEDS: AMPICILLIN SULB 3 GM/NS 100 ML 3 GM/100 ML VIAL IVPB (05:34)
[2024-03-15 07:19] LABS: Basophils Percent Auto 0.4 % (0.2-1.2); Eosinophils Absolute Auto 0.4 K/mm3 (0-0.3); Eosinophils Percent Auto 8.3 % (0-4.4); Hematocrit 32.1 % (37.0-47.0); Hemoglobin 10.3 g/dL (12.0-15.0); Immature Granulocyte Absolute 0.01 K/mm3 (0.00-0.031); Immature Granulocyte Percent A 0.2 % (0-0.5); Lymphocytes Absolute Auto 0.94 K/mm3 (0.9-3.2); Mean Corpuscular HGB Conc 32.1 g/dl (32-36); Mean Corpuscular Hemoglobin 33.1 pg (26-34); Mean Corpuscular Volume 103.2 fl (80-100); Mean Platelet Volume 13.3 fl (7.4-10.4); Monocytes Absolute Auto 0.7 K/mm3 (0.1-0.6); Monocytes Percent Auto 16.6 % (2.6-8.5); Neutrophils Absolute Auto 2.4 K/mm3 (1.3-6.7); Neutrophils Percent Auto 53.5 % (45.5-73.1); Platelet Count Result 135 k/mm3 (150-375); Red Blood Count 3.11 M/mm3 (4.2-5.4); Red Cell Distribution Width 13.1 % (11.5-14.5); White Blood Count 4.5 K/mm3 (4.5-10.0)
[2024-03-15 07:25] LABS: INR 4.1; Prothrombin Time 40.2 Seconds (11.1-14.7)
[2024-03-15 07:29] LABS: Anion Gap 0 mmol/L (4-12); Blood Urea Nitrogen 12 mg/dL (7-17); Calcium 9.1 mg/dL (8.4-10.2); Carbon Dioxide 34 mmol/L (22-30); Chloride 103 mmol/L (98-107); Estimated CRCL calculation 37 ml/min; Estimated Glomerular Filt Rate 45; Glucose 73 mg/dL (65-110); Magnesium 1.3 mg/dL (1.6-2.3); Potassium 3.8 mmol/L (3.4-5.0); Sodium 137 mmol/L (137-145)
[2024-03-15] MEDS: ENOXAPARIN 80 MG/0.8 ML SYRINGE SUB-Q ×2 (09:17→21:30)
[2024-03-15] MEDS: FUROSEMIDE INJ 40 MG/4 ML VIAL 20 MG IV PUSH (09:19)
[2024-03-15] MEDS: VENLAFAXINE HCL XR 75 MG CAP.ER.24H 150 MG PO (09:20)
[2024-03-15] MEDS: CHOLECALCIFEROL 1,000 UNITS TABLET 1000 UNITS PO (09:20)
[2024-03-15] MEDS: PANTOPRAZOLE 40 MG TABLET PO (09:20)
[2024-03-15] MEDS: methiMAzole 5 MG TAB PO (09:21)
[2024-03-15] MEDS: CINACALCET PO (09:21)
[2024-03-15] MEDS: guaiFENesin 12 HR 600 MG TABCR 1200 MG PO ×2 (09:21→21:30)
[2024-03-15] MEDS: GABAPENTIN 300 MG CAPSULE PO ×2 (09:21→21:31)
[2024-03-15] MEDS: CYANOCOBALAMIN 1,000 MCG TABLET 1000 MCG PO (09:21)
[2024-03-15] MEDS: BENZOCAINE/MENTHOL (*BKC) 18 EA LOZENGE 1 LOZENGE PO ×2 (09:30→15:12)
[2024-03-15] MEDS: HYDROcodone/acetaminophen (*CRX) 5-325 MG TABLET 1 TAB PO ×2 (09:31→21:31)
--- NOTE | 2024-03-15 10:09 | P.PNIM_ITS ---
Progress Note: A&P Assessment and Plan (1) Mechanical heart valve present: Code(s): Z95.2 - Presence of prosthetic heart valve Status: Acute Assessment and Plan: Audible mechanical heart valve. INR subtherapeutic for several days, 1.5, 1.4, 1 today. Next of Kin, PCP manages INR and warfarin doses for her. Next of Kin, Anshul coordinates with the office. The last 2 weeks before admission she was taking 6 mg thursday-, 5mg thursday, sat, sun. Generally has INR checks ever 2 weeks Goal INR 2.5-3.5 with her mechanical valve. Izzy reports 9mg daily is a higher dose than she has needed previously --Started a heparin drip with a bolus for subtherapeutic INR --Follow CBC since trending down but may be dilutional. Stable overnight --Warfarin 8mg<9mg daily --Daily INR, closer to goal --Coordinate INR checks & follow up plan with PCP's office, Dr. Sanjeev Rosenberg 03/07 1.5 03/08 Warfarin 6mg 03/09 1.4 Warfarin 6mg 03/10 1 Warfarin 8mg 03/11 1.7 Warfarin 9mg 03/12 2.1 & 2.2 Warfarin 9mg (lab said it was likely run twice for a precision check) 03/14: * 3.9 - Will hold tonight's dose. * Continue to trend daily INR's * Therapeutically dosed Lovenox is discontinued at this time as pt has been receiving it as a bridge. 03/15 * INR 4.1 * Continue to hold Warfarin * Continue to trend daily INR * Reports passing a small amount of bright red blood today after bowel movement * Continue to monitor. * Patient on Augmentin which can make therapeutic trend challenging (2) Palpitations: Code(s): R00.2 - Palpitations Status: Acute Assessment and Plan: - Likely due to PAF with RVR. - Better after hydration and resuming home meds. 03/14/24 * Rate now controlled significantly better. * Continue Telemetry. * Continue to monitor. 03/15/24 * Rate controlled in the 90's * Discontinue telemetry * Hold Warfarin for supratherapeutic INR (3) Acute kidney injury: Code(s): N17.9 - Acute kidney failure, unspecified Status: Acute Assessment and Plan: Ddx pre-renal vs poor PO intake vs meds vs other. s/p 500 bolus with tachycardia --Resumed lasix --Creatinine stable 03/14/24: * Continue Lasix as ordered * Creatinine today 1.2, at baseline. * Continue to trend and monitor. 03/15/23: * Creatinine 1.16 currently at baseline (4) HTN (hypertension): Qualifiers: Hypertension type: primary hypertension Qualified Code(s): I10 - Essential (primary) hypertension Code(s): I10 - Essential (primary) hypertension Status: Acute Assessment and Plan: - Appears well controlled. - Continue metoprolol, changed from XL to IR for titration - Follow VS 03/14/24: * Continuing to trend and monitor. Stable 03/15/24: * Blood pressures ranging 125/54-150/68 * Metoprolol (5) Hyperlipidemia: Qualifiers: Hyperlipidemia type: mixed hyperlipidemia Qualified Code(s): E78.2 - Mixed hyperlipidemia Code(s): E78.5 - Hyperlipidemia, unspecified Status: Acute Assessment and Plan: * continue simvastatin (6) Shortness of breath: Code(s): R06.02 - Shortness of breath Status: Acute Assessment and Plan: Mildly tachypneic. Not obviously overloaded on exam, likely 2/2 pneumonia --Started heparin drip, if not resolved consider a CT r/o PE, but is on warfarin chronically for mechanical heart valve --Treatment of pneumonia and heart failure, rate control afib --PEP therapy for airway clearance 03/14/24: * Continue Unasyn for underlying cause of PNA. * Wean oxygen for sats >90%. Nursing order placed. * Continue to trend. 03/15/23: * Will change to Augmentin today * Currently on 2L NC * Continue to wean for a saturation greater than 90%. (7) Anemia: Code(s): D64.9 - Anemia, unspecified Status: Acute Assessment and Plan: Blood count trending down since admission but may be dilutional 14.2>11.1 Iron panel showing iron deficiency anemia, Total Iron and Tsat low. B12 636. LDH 245 --iron sucrose 300mg x3 doses --Follow CBC --If downtrending would need GI consult on chronic anticoagulation 03/14/24: * Hgb further declined today to 10.5. * Small drop, continue to monitor. * Pt just finished her third dose of Venofer. * Occult blood ordered from stool. * Consider GI consult if further declination as she is on chronic anticoagulation. * Pt's INR today is 3.9. Her dose of Coumadin for tonight is held and will need restarted tomorrow if applicable. In addition, the pt's Therapeutically dosed bridge Lovenox is discontinued today. * Monitor for any s/s of acute bleeding. 03/15/23: * Hgb 10.3 today * Patient had 3 doses of Venofer * collect occult blood stool (8) Heart failure, diastolic, acute on chronic: Code(s): I50.33 - Acute on chronic diastolic (congestive) heart failure Status: Acute Assessment and Plan: 08/24/23 Echo: TDS. EF 45%, biatrial enlargement, suspect (YADIRA 1.4 cm2), mod MR, mild-mod TR. s/p 500ml fluid bolus, now back on IV lasix NT-proBNP 10,000 Resume lasix, 20mg IV daily & increase as able TTE 03/14/24: * Chronic in nature. * Appears euvolemic. * Continue Lasix 03/15/23: * Will increase to 40 mg IVP lasix today * Course bilaterally with peripheral swelling (9) Pneumonia: Code(s): J18.9 - Pneumonia, unspecified organism Status: Acute Assessment and Plan: Hospital associated pneumonia. Chest x-ray showed possible RLL pneumonia. Has crackles on exam. Intermittent fevers. Resolved today after starting unasyn. On room air --Started Unasyn, change to augmentin if improving --If new oxygen requirements, broaden to Cefepime/Vanc/Flagyl --Also has a sore throat, checking strep culture. Chlorseptic drops & tylenol prn --Urine for strep pneumo --Follow up chest x-ray if new oxygen requirement or not resolving --Staph screen. Can broaden to Cefepime/Vanc if worsening --Sputum culture if able to collect. Would only use to guide treatment if not improving with current antibiotics 03/14/24: * Continue Unasyn. Could likely switch to oral Augmentin tomorrow. 03/15/24: * Unasyn changed to Augmentin (10) Atrial fibrillation with RVR: Code(s): I48.91 - Unspecified atrial fibrillation Status: Acute Assessment and Plan: Home metoprolol ER 25mg daily Resting HR 70s-90s, 100-130's with activity on 03/10. Rate controlled with increased dose of metoprolol and a 500ml fluid bolus - Change Metoprolol ER 25mg daily to metoprolol tartrate 12.5mg q6 and titrate. 5mg IV metoprolol --INR goal as noted for mechanical heart valve. INR can be affected by antibiotics --Cardiology consulted, appreciate recommendations 03/15/24: * Rate controlled in the 90's * Continue Metoprolol * D/C continuous tele Time Spent With Patient Time with patient: 25 - 35 minutes Subjective Date/time seen: 03/15/24 10:09 Interval history: Interval history: This is a 78 year old female who presented to the hospital on 03/08/24 with complaints of chest discomfort and palpitations. she was found to be in A fib RVR and was given Metoprolol in the ER. She was continued on Warfarin and Metoprolol. She was noted to have an OLIVE as well and was given IVF. Her heart rate and kidney function improved with Metoprolol and IVF. Subjective: Patient reports passing a little bit of blood today with bowel movement and swelling to BLE. Her INR is 4.1 this a.m. and Coumadin is currently on hold. She denies any fever, chills, nausea, vomiting, diarrhea, abdominal pain, chest pain, or shortness of breath. She is currently on 2L NC and she normally is on room air. Lungs sound course today. Labs and imaging reviewed. Review of Systems Review of Systems: All systems reviewed & are unremarkable except as noted in HPI and below Constitutional: Constitutional: Reports as per HPI and Reports no additional constitutional complaints Eyes: Eyes: Reports as per HPI and Reports no additional eye complaints ENT: Reports system reviewed and no additional complaints, except as documented and Reports as per HPI Cardiovascular: Cardiovascular: Reports as per HPI and Reports no additional c ardiovascular complaints Respiratory: Respiratory: Reports as per HPI and Reports no additional respiratory complaints Gastrointestinal: Gastrointestinal: Reports as per HPI and Reports no additional gastrointestinal complaints Genitourinary: Genitourinary: Reports no additional female genitourinary complaints and Reports as per HPI Musculoskeletal: Musculoskeletal: Reports no additional musculoskeletal complaints and Reports as per HPI Integumentary/Breasts: Skin/Breast: Reports system reviewed and no additional complaints, except as docu and Reports as per HPI Neurologic: Reports system reviewed and no additional complaints, except as documented and Reports as per HPI Psychiatric: Psychiatric: Reports no additional psychiatric complaints and Reports as per HPI Exam Narrative: General: In no acute distress, well nourished Head: atraumatic, no encephalopathy Eyes: PERRLA, sclera clear ENT: moist mucous membranes, nasal passages clear Neck: supple, no JVD, no adenopathy, trachea midline Cardiac: Normal S1 and S2. RRR, No murmur, gallops or friction rubs, peripheral pulses intact. Respiratory: Lungs course with crackles noted in bases, no adventitious lung sounds, currently on 2L NC Gastrointestinal: soft, non-distended, non-tender, normoactive bowel sounds. : voiding without difficulty. Extremities: moves all extremities well, mild non pitting edema BLE R>L Skin: clean, dry, intact. No wounds or lesions. Neuro: Alert and oriented x4, cranial nerves intact, no neuro deficits. Psych: normal mood, normal affect, interactive Objective Data Vital Signs Vital Signs: Vital Signs - 24 hr 03/14/24 11:37 03/14/24 12:00 03/14/24 12:00 Temperature 98.1 F Pulse Rate 111 H 92 93 Respiratory Rate 18 Blood Pressure 138/70 Pulse Oximetry 100 Oxygen Delivery Oxygen Flow Rate 03/14/24 16:00 03/14/24 16:00 03/14/24 17:05 Temperature 97.6 F Pulse Rate 73 87 88 Respiratory Rate 16 Blood Pressure 150/68 H Pulse Oximetry 96 Oxygen Delivery Oxygen Flow Rate 03/14/24 20:00 03/14/24 20:00 03/14/24 23:17 Temperature 98.3 F Pulse Rate 88 89 89 Respiratory Rate 16 Blood Pressure 142/69 H Pulse Oximetry 100 Oxygen Delivery Oxygen Flow Rate 03/14/24 23:20 03/15/24 00:00 03/15/24 03:50 Temperature 98.9 F 98.4 F Pulse Rate 98 90 90 Respiratory Rate 16 12 Blood Pressure 148/70 H 125/54 L Pulse Oximetry 97 96 Oxygen Delivery Oxygen Flow Rate 03/15/24 04:00 03/15/24 05:34 03/15/24 09:37 Temperature Pulse Rate 90 90 Respiratory Rate Blood Pressure Pulse Oximetry 96 Oxygen Delivery Nasal Cannula Oxygen Flow Rate 2 Intake/Output Intake/Output: Intake & Output 03/12/24 03/13/24 03/14/24 03/15/24 23:59 23:59 23:59 23:59 Intake Total 2039.4 1696.6 1540 450 Output Total 1650 2400 950 300 Balance 389.4 -703.4 590 150 Meds/Results Medications: Active Medications Generic Name Dose Route Start Last Admin Trade Name Freq PRN Reason Stop Dose Admin Acetaminophen 1,000 mg 03/10/24 10:04 03/11/24 00:10 Acetaminophen 500 Mg Tablet PO 1,000 mg Q6H PRN Administration Mild Pain (1-3) or Fever Hydrocodone Bitart/Acetaminophen 1 tab 03/08/24 17:21 03/15/24 09:31 Hydrocodone/Acetaminophen (*Crx) 5-325 Mg Tablet PO 1 tab Q6H PRN Administration Pain Rated 4-6 Albuterol 2 puff 03/08/24 17:21 Albuterol Sulfate (*Sp) Aerosol 1 Puff INHALATION QID PRN Shortness Of Breath Alprazolam 0.25 mg 03/08/24 17:21 03/13/24 21:59 Alprazolam (*Crx) 0.25 Mg Tablet PO 0.25 mg HS PRN Administration Anxiety Benzocaine 1 lozenge 03/10/24 18:17 03/15/24 09:30 Benzocaine/Menthol (*Bkc) 18 Ea Lozenge PO 1 lozenge PRN PRN Administration Sore Throat Cyanocobalamin 1,000 mcg 03/09/24 09:00 03/15/24 09:21 Cyanocobalamin 1,000 Mcg Tablet PO 1,000 mcg DAILY IAN Administration Diclofenac Sodium 1 applic 03/10/24 10:04 03/10/24 12:24 Diclofenac Sodium 1% 100 Gm Gel (*Bkc) TOPICAL 1 applic QID PRN Administration joint pain Enoxaparin Sodium 80 mg 03/13/24 21:50 03/15/24 09:17 Enoxaparin 80 Mg/0.8 Ml Syringe SUB-Q 80 mg Q12HR IAN Administration Furosemide 20 mg 03/12/24 09:00 03/15/24 09:19 Furosemide Inj 40 Mg/4 Ml Vial IV PUSH 20 mg DAILY IAN Administration Gabapentin 300 mg 03/08/24 21:00 03/15/24 09:21 Gabapentin 300 Mg Capsule PO 300 mg Q12HR IAN Administration Guaifenesin 1,200 mg 03/13/24 12:50 03/15/24 09:21 Guaifenesin 12 Hr 600 Mg Tabcr PO 1,200 mg Q12HR IAN Administration Guaifenesin/Dextromethorphan 10 ml 03/11/24 23:14 03/14/24 07:53 Guaifenesin/Dextromethorphan 10 Ml Udc PO 10 ml Q4H PRN Administration Cough Hydromorphone HCl 0.2 mg 03/10/24 12:48 Hydromorphone Hcl Inj (*Crx) 1 Mg/Ml Syr IV PUSH Q6H PRN Pain Rated 7-10 Ampicillin Sodium/Sulbactam Sodium 3 gm in 100 mls @ 200 mls/hr 03/11/24 11:25 03/15/24 06:04 Unasyn 3 Gm/Ns 100 Ml IVPB Infused Q6HR IAN Infusion Methimazole 5 mg 03/09/24 09:00 03/15/24 09:21 Methimazole 5 Mg Tab PO 5 mg DAILY IAN Administration Metoprolol Tartrate 12.5 mg 03/10/24 07:35 03/15/24 05:34 Metoprolol Tartrate 12.5 Mg Tablet PO 12.5 mg Q6HR IAN Administration Cinacalcet 15 Mg 0 each 03/10/24 09:00 03/15/24 09:21 Tablet PO 04/09/24 08:59 15 each DAILY IAN Administration Pantoprazole Sodium 40 mg 03/09/24 09:00 03/15/24 09:20 Pantoprazole 40 Mg Tablet PO 40 mg QAM IAN Administration Potassium Chloride 10 meq 03/08/24 21:00 03/14/24 20:55 Potassium Chloride 10 Meq Er Tablet PO 10 meq HS IAN Administration Simvastatin 10 mg 03/08/24 21:00 03/14/24 20:55 Simvastatin 10 Mg Tablet PO 10 mg HS IAN Administration Venlafaxine HCl 150 mg 03/09/24 09:00 03/15/24 09:20 Venlafaxine Hcl Xr 75 Mg Cap.Er.24h PO 150 mg DAILY IAN Administration Vitamin D 1,000 units 03/09/24 09:00 03/15/24 09:20 Cholecalciferol 1,000 Units Tablet PO 1,000 units DAILY IAN Administration Warfarin Sodium 9 mg 03/11/24 17:00 03/13/24 17:40 Warfarin (*Pbkc) 3 Mg Tablet PO 9 mg DAILY@1700 IAN Administration Radiology Results: ITS Impressions Chest X-Ray 03/10/24 15:01 IMPRESSION: Persisting cardiomegaly with possible left lower lobe infiltrate, as detailed above. Labs Labs: Laboratory Results - last 24 hr 03/14/24 03/14/24 03/15/24 12:33 16:09 07:02 WBC 4.5 RBC 3.11 L Hgb 10.3 L Hct 32.1 L MCV 103.2 H MCH 33.1 MCHC 32.1 RDW 13.1 Plt Count 135 L MPV 13.3 H Immature Gran % (Auto) 0.2 Neut % (Auto) 53.5 Lymph % (Auto) 21.0 [place] % (Auto) 16.6 H Eos % (Auto) 8.3 H Baso % (Auto) 0.4 Lymph # (Auto) 0.94 [place] # (Auto) 0.7 H Eos # (Auto) 0.4 H Baso # (Auto) 0.0 Abs Immat Gran (auto) 0.01 Absolute Neuts (auto) 2.4 Absolute Nucleated RBC 0.000 Nucleated RBC % 0.0 % Immature Plt Fraction 14.0 H PT 40.2 H INR 4.1 Sodium 137 Potassium 3.8 Chloride 103 Carbon Dioxide 34 H Anion Gap 0 L BUN 12 Creatinine 1.16 H Estim Creat Clear Calc 37 Estimated GFR 45 L Glucose 73 POC Capillary Glucose 103 121 H Calcium 9.1 Magnesium 1.3 L Quality VTE Prophylaxis VTE prophylaxis: pharmacologic ordered
[2024-03-15] MEDS: MAGNESIUM SULF 4 GM/WATER100ML 4 GM/100 ML BAG IVPB (10:45)
[2024-03-15] MEDS: FUROSEMIDE INJ 40 MG/4 ML VIAL IV PUSH (15:12)
[2024-03-15 15:30] LABS: NT Pro B Type Natriuretic Pept 6360 pg/mL (19.9-100)
[2024-03-15] MEDS: SIMVASTATIN 10 MG TABLET PO (21:31)
[2024-03-15] MEDS: AMOXICILLIN/CLAVULANATE K 875-125 MG TAB 1 TABLET PO (21:31)
[2024-03-15] MEDS: POTASSIUM CHLORIDE 10 MEQ ER TABLET PO (21:31)
[2024-03-15] MEDS: ALPRAZolam (*CRX) 0.25 MG TABLET PO (21:31)
[2024-03-15] MEDS: MELATONIN 5 MG TABLET PO (21:31)
[2024-03-16] VITALS (11 sets, daily range): BP systolic 105–138; BP diastolic 65–78; PULSE 60–90; RESP 16–20; TEMP 36–36.9; O2SAT 90–96
[2024-03-16] MEDS: METOPROLOL TARTRATE 12.5 MG TABLET PO ×4 (05:25→23:35)
[2024-03-16] MEDS: HYDROcodone/acetaminophen (*CRX) 5-325 MG TABLET 1 TAB PO ×3 (05:28→18:21)
[2024-03-16 06:23] LABS: Basophils Percent Auto 0.8 % (0.2-1.2); Eosinophils Absolute Auto 0.4 K/mm3 (0-0.3); Hematocrit 34.3 % (37.0-47.0); Hemoglobin 10.9 g/dL (12.0-15.0); Immature Granulocyte Absolute 0.01 K/mm3 (0.00-0.031); Immature Granulocyte Percent A 0.3 % (0-0.5); Immature Platelet Fraction Pct 14.2 % (0.9-11.2); Lymphocytes Absolute Auto 1.21 K/mm3 (0.9-3.2); Lymphocytes Percent Auto 30.3 % (18.3-44.2); Mean Corpuscular HGB Conc 31.8 g/dl (32-36); Mean Corpuscular Hemoglobin 32.9 pg (26-34); Mean Corpuscular Volume 103.6 fl (80-100); Monocytes Absolute Auto 0.6 K/mm3 (0.1-0.6); Neutrophils Absolute Auto 1.7 K/mm3 (1.3-6.7); Neutrophils Percent Auto 42.6 % (45.5-73.1); Platelet Count Result 149 k/mm3 (150-375); Red Blood Count 3.31 M/mm3 (4.2-5.4); Red Cell Distribution Width 13.1 % (11.5-14.5)
[2024-03-16 06:36] LABS: INR 3.9; Prothrombin Time 38.2 Seconds (11.1-14.7)
[2024-03-16 06:39] LABS: Anion Gap 1 mmol/L (4-12); Blood Urea Nitrogen 14 mg/dL (7-17); Calcium 9.5 mg/dL (8.4-10.2); Carbon Dioxide 35 mmol/L (22-30); Chloride 99 mmol/L (98-107); Estimated CRCL calculation 32 ml/min; Estimated Glomerular Filt Rate 38; Glucose 77 mg/dL (65-110); Potassium 3.6 mmol/L (3.4-5.0); Sodium 135 mmol/L (137-145)
[2024-03-16] MEDS: CINACALCET PO (08:10)
[2024-03-16] MEDS: CHOLECALCIFEROL 1,000 UNITS TABLET 1000 UNITS PO (08:10)
[2024-03-16] MEDS: AMOXICILLIN/CLAVULANATE K 875-125 MG TAB 1 TABLET PO ×2 (08:10→21:25)
[2024-03-16] MEDS: GABAPENTIN 300 MG CAPSULE PO ×2 (08:10→21:26)
[2024-03-16] MEDS: guaiFENesin 12 HR 600 MG TABCR 1200 MG PO ×2 (08:10→21:25)
--- NOTE | 2024-03-16 08:10 | P.PNIM_ITS ---
Progress Note: A&P Assessment and Plan (1) Mechanical heart valve present: Code(s): Z95.2 - Presence of prosthetic heart valve Status: Acute Assessment and Plan: Audible mechanical heart valve. INR subtherapeutic for several days, 1.5, 1.4, 1 today. Next of Kin, PCP manages INR and warfarin doses for her. Next of Kin, Anshul coordinates with the office. The last 2 weeks before admission she was taking 6 mg thursday-, 5mg thursday, sat, sun. Generally has INR checks ever 2 weeks Goal INR 2.5-3.5 with her mechanical valve. Izzy reports 9mg daily is a higher dose than she has needed previously --Started a heparin drip with a bolus for subtherapeutic INR --Follow CBC since trending down but may be dilutional. Stable overnight --Warfarin 8mg<9mg daily --Daily INR, closer to goal --Coordinate INR checks & follow up plan with PCP's office, Dr. Sanjeev Rosenberg 03/07 1.5 03/08 Warfarin 6mg 03/09 1.4 Warfarin 6mg 03/10 1 Warfarin 8mg 03/11 1.7 Warfarin 9mg 03/12 2.1 & 2.2 Warfarin 9mg (lab said it was likely run twice for a precision check) 03/14: * 3.9 - Will hold tonight's dose. * Continue to trend daily INR's * Therapeutically dosed Lovenox is discontinued at this time as pt has been receiving it as a bridge. 03/15 * INR 4.1 * Continue to hold Warfarin * Continue to trend daily INR * Reports passing a small amount of bright red blood today after bowel movement * Continue to monitor. * Patient on Augmentin which can make therapeutic trend challenging 03/16 * INR 3.9 * Continue to hold Warfarin (2) Palpitations: Code(s): R00.2 - Palpitations Status: Acute Assessment and Plan: - Likely due to PAF with RVR. - Better after hydration and resuming home meds. 03/14/24 * Rate now controlled significantly better. * Continue Telemetry. * Continue to monitor. 03/15/24 * Rate controlled in the 90's * Discontinue telemetry * Hold Warfarin for supratherapeutic INR 03/16 * Continue to hold Warfarin (3) Acute kidney injury: Code(s): N17.9 - Acute kidney failure, unspecified Status: Acute Assessment and Plan: Ddx pre-renal vs poor PO intake vs meds vs other. s/p 500 bolus with tachycardia --Resumed lasix --Creatinine stable 03/14/24: * Continue Lasix as ordered * Creatinine today 1.2, at baseline. * Continue to trend and monitor. 03/15/23: * Creatinine 1.16 currently at baseline 03/16 * Creatinine 1.33 (4) HTN (hypertension): Qualifiers: Hypertension type: primary hypertension Qualified Code(s): I10 - Essential (primary) hypertension Code(s): I10 - Essential (primary) hypertension Status: Acute Assessment and Plan: - Appears well controlled. - Continue metoprolol, changed from XL to IR for titration - Follow VS 03/14/24: * Continuing to trend and monitor. Stable 03/15/24: * Blood pressures ranging 125/54-150/68 * Continue Metoprolol (5) Hyperlipidemia: Qualifiers: Hyperlipidemia type: mixed hyperlipidemia Qualified Code(s): E78.2 - Mixed hyperlipidemia Code(s): E78.5 - Hyperlipidemia, unspecified Status: Acute Assessment and Plan: * continue simvastatin (6) Shortness of breath: Code(s): R06.02 - Shortness of breath Status: Acute Assessment and Plan: Mildly tachypneic. Not obviously overloaded on exam, likely 2/2 pneumonia --Started heparin drip, if not resolved consider a CT r/o PE, but is on warfarin chronically for mechanical heart valve --Treatment of pneumonia and heart failure, rate control afib --PEP therapy for airway clearance 03/14/24: * Continue Unasyn for underlying cause of PNA. * Wean oxygen for sats >90%. Nursing order placed. * Continue to trend. 03/15/23: * Will change to Augmentin today * Currently on 2L NC * Continue to wean for a saturation greater than 90%. 03/16 * Continue to wean O2 * Currently on 2L NC * lasix 40 mg IVP given today (7) Anemia: Code(s): D64.9 - Anemia, unspecified Status: Acute Assessment and Plan: Blood count trending down since admission but may be dilutional 14.2>11.1 Iron panel showing iron deficiency anemia, Total Iron and Tsat low. B12 636. LDH 245 --iron sucrose 300mg x3 doses --Follow CBC --If downtrending would need GI consult on chronic anticoagulation 03/14/24: * Hgb further declined today to 10.5. * Small drop, continue to monitor. * Pt just finished her third dose of Venofer. * Occult blood ordered from stool. * Consider GI consult if further declination as she is on chronic anticoagulation. * Pt's INR today is 3.9. Her dose of Coumadin for tonight is held and will need restarted tomorrow if applicable. In addition, the pt's Therapeutically dosed bridge Lovenox is discontinued today. * Monitor for any s/s of acute bleeding. 03/15/23: * Hgb 10.3 today * Patient had 3 doses of Venofer * collect occult blood stool 03/16 * No real change, Hgb 10.9 (8) Heart failure, diastolic, acute on chronic: Code(s): I50.33 - Acute on chronic diastolic (congestive) heart failure Status: Acute Assessment and Plan: 08/24/23 Echo: TDS. EF 45%, biatrial enlargement, suspect (YADIRA 1.4 cm2), mod MR, mild-mod TR. s/p 500ml fluid bolus, now back on IV lasix NT-proBNP 10,000 Resume lasix, 20mg IV daily & increase as able TTE 03/14/24: * Chronic in nature. * Appears euvolemic. * Continue Lasix 03/15/23: * Will increase to 40 mg IVP lasix today * Course bilaterally with peripheral swelling 03/16 * continue Lasix 40 mg BID IVP (9) Pneumonia: Code(s): J18.9 - Pneumonia, unspecified organism Status: Acute Assessment and Plan: Hospital associated pneumonia. Chest x-ray showed possible RLL pneumonia. Has crackles on exam. Intermittent fevers. Resolved today after starting unasyn. On room air --Started Unasyn, change to augmentin if improving --If new oxygen requirements, broaden to Cefepime/Vanc/Flagyl --Also has a sore throat, checking strep culture. Chlorseptic drops & tylenol prn --Urine for strep pneumo --Follow up chest x-ray if new oxygen requirement or not resolving --Staph screen. Can broaden to Cefepime/Vanc if worsening --Sputum culture if able to collect. Would only use to guide treatment if not improving with current antibiotics 03/14/24: * Continue Unasyn. Could likely switch to oral Augmentin tomorrow. 03/15/24: * Unasyn changed to Augmentin (10) Atrial fibrillation with RVR: Code(s): I48.91 - Unspecified atrial fibrillation Status: Acute Assessment and Plan: Home metoprolol ER 25mg daily Resting HR 70s-90s, 100-130's with activity on 03/10. Rate controlled with increased dose of metoprolol and a 500ml fluid bolus - Change Metoprolol ER 25mg daily to metoprolol tartrate 12.5mg q6 and titrate. 5mg IV metoprolol --INR goal as noted for mechanical heart valve. INR can be affected by antibiotics --Cardiology consulted, appreciate recommendations 03/15/24: * Rate controlled in the 90's * Continue Metoprolol * D/C continuous tele * Hold Warfarin due to supratherapeutic INR Time Spent With Patient Time with patient: 25 - 35 minutes Subjective Date/time seen: 03/16/24 08:10 Interval history: Interval history: This is a 78 year old female who presented to the hospital on 03/08/24 with complaints of chest discomfort and palpitations. she was found to be in A fib RVR and was given Metoprolol in the ER. She was continued on Warfarin and Metoprolol. She was noted to have an OLIVE as well and was given IVF. Her heart rate and kidney function improved with Metoprolol and IVF. Subjective: Patient reports dizziness today and still passing scant amount of blood when going to the bathroom. INR down to 3.9 today. H/H stable. Review of Systems Review of Systems: All systems reviewed & are unremarkable except as noted in HPI and below Constitutional: Constitutional: Reports as per HPI and Reports no additional constitutional complaints Eyes: Eyes: Reports as per HPI and Reports no additional eye complaints ENT: Reports system reviewed and no additional complaints, except as documented and Reports as per HPI Cardiovascular: Cardiovascular: Reports as per HPI and Reports no additional cardiovascular complaints Respiratory: Respiratory: Reports as per HPI and Reports no additional respiratory complaints Gastrointestinal: Gastrointestinal: Reports as per HPI and Reports no additional gastrointestinal complaints Genitourinary: Genitourinary: Reports no additional female genitourinary complaints and Reports as per HPI Musculoskeletal: Musculoskeletal: Reports no additional musculoskeletal complaints and Reports as per HPI Integumentary/Breasts: Skin/Breast: Reports system reviewed and no additional complaints, except as docu and Reports as per HPI Neurologic: Reports system reviewed and no additional complaints, except as documented and Reports as per HPI Psychiatric: Psychiatric: Reports no additional psychiatric complaints and Reports as per HPI Exam Narrative: General: In no acute distress, well nourished Cardiac: Normal S1 and S2. RRR, No murmur, gallops or friction rubs, peripheral pulses intact. Respiratory: Lungs clear , no adventitious lung sounds, currently on room air Gastrointestinal: soft, non-distended, non-tender, normoactive bowel sounds. : voiding without difficulty. Neuro: Alert and oriented x4 Objective Data Vital Signs Vital Signs: Vital Signs - 24 hr 03/15/24 09:37 03/15/24 11:53 03/15/24 12:00 Temperature 96.8 F L Pulse Rate 91 90 Respiratory Rate 13 Blood Pressure 111/64 Pulse Oximetry 96 100 Oxygen Delivery Nasal Cannula Oxygen Flow Rate 2 03/15/24 12:55 03/15/24 15:21 03/15/24 17:49 Temperature 97.3 F L Pulse Rate 91 92 77 Respiratory Rate 13 Blood Pressure 127/66 Pulse Oximetry 100 Oxygen Delivery Oxygen Flow Rate 03/15/24 20:00 03/15/24 23:57 03/16/24 04:00 Temperature 97.5 F L 97.5 F L 97.1 F L Pulse Rate 88 88 89 Respiratory Rate 14 14 16 Blood Pressure 132/81 119/72 117/70 Pulse Oximetry 99 99 95 Oxygen Delivery Oxygen Flow Rate Intake/Output Intake/Output: Intake & Output 03/13/24 03/14/24 03/15/24 03/16/24 23:59 23:59 23:59 23:59 Intake Total 1696.6 1540 1430 275 Output Total 2400 950 1200 Balance -703.4 590 230 275 Meds/Results Medications: Active Medications Generic Name Dose Route Start Last Admin Trade Name Freq PRN Reason Stop Dose Admin Acetaminophen 1,000 mg 03/10/24 10:04 03/11/24 00:10 Acetaminophen 500 Mg Tablet PO 1,000 mg Q6H PRN Administration Mild Pain (1-3) or Fever Hydrocodone Bitart/Acetaminophen 1 tab 03/08/24 17:21 03/16/24 05:28 Hydrocodone/Acetaminophen (*Crx) 5-325 Mg Tablet PO 1 tab Q6H PRN Administration Pain Rated 4-6 Albuterol 2 puff 03/08/24 17:21 Albuterol Sulfate (*Sp) Aerosol 1 Puff INHALATION QID PRN Shortness Of Breath Alprazolam 0.25 mg 03/08/24 17:21 03/15/24 21:31 Alprazolam (*Crx) 0.25 Mg Tablet PO 0.25 mg HS PRN Administration Anxiety Amoxicillin/Clavulanate Potassium 1 tablet 03/15/24 21:00 03/15/24 21:31 Amoxicillin/Clavulanate K 875-125 Mg Tab PO 1 tablet Q12HR IAN Administration Benzocaine 1 lozenge 03/10/24 18:17 03/15/24 15:12 Benzocaine/Menthol (*Bkc) 18 Ea Lozenge PO 1 lozenge PRN PRN Administration Sore Throat Cyanocobalamin 1,000 mcg 03/09/24 09:00 03/15/24 09:21 Cyanocobalamin 1,000 Mcg Tablet PO 1,000 mcg DAILY IAN Administration Diclofenac Sodium 1 applic 03/10/24 10:04 03/10/24 12:24 Diclofenac Sodium 1% 100 Gm Gel (*Bkc) TOPICAL 1 applic QID PRN Administration joint pain Enoxaparin Sodium 80 mg 03/13/24 21:50 03/15/24 21:30 Enoxaparin 80 Mg/0.8 Ml Syringe SUB-Q 80 mg Q12HR IAN Administration Furosemide 20 mg 03/16/24 09:00 Furosemide 20 Mg Tablet PO DAILY IAN Gabapentin 300 mg 03/08/24 21:00 03/15/24 21:31 Gabapentin 300 Mg Capsule PO 300 mg Q12HR IAN Administration Guaifenesin 1,200 mg 03/13/24 12:50 03/15/24 21:30 Guaifenesin 12 Hr 600 Mg Tabcr PO 1,200 mg Q12HR IAN Administration Guaifenesin/Dextromethorphan 10 ml 03/11/24 23:14 03/14/24 07:53 Guaifenesin/Dextromethorphan 10 Ml Udc PO 10 ml Q4H PRN Administration Cough Hydromorphone HCl 0.2 mg 03/10/24 12:48 Hydromorphone Hcl Inj (*Crx) 1 Mg/Ml Syr IV PUSH Q6H PRN Pain Rated 7-10 Melatonin 5 mg 03/15/24 21:00 03/15/24 21:31 Melatonin 5 Mg Tablet PO 5 mg HS IAN Administration Methimazole 5 mg 03/09/24 09:00 03/15/24 09:21 Methimazole 5 Mg Tab PO 5 mg DAILY IAN Administration Metoprolol Tartrate 12.5 mg 03/10/24 07:35 03/16/24 05:25 Metoprolol Tartrate 12.5 Mg Tablet PO 12.5 mg Q6HR IAN Administration Cinacalcet 15 Mg 0 each 03/10/24 09:00 03/15/24 09:21 Tablet PO 04/09/24 08:59 15 each DAILY IAN Administration Pantoprazole Sodium 40 mg 03/09/24 09:00 03/15/24 09:20 Pantoprazole 40 Mg Tablet PO 40 mg QAM IAN Administration Potassium Chloride 10 meq 03/08/24 21:00 03/15/24 21:31 Potassium Chloride 10 Meq Er Tablet PO 10 meq HS IAN Administration Simvastatin 10 mg 03/08/24 21:00 03/15/24 21:31 Simvastatin 10 Mg Tablet PO 10 mg HS IAN Administration Venlafaxine HCl 150 mg 03/09/24 09:00 03/15/24 09:20 Venlafaxine Hcl Xr 75 Mg Cap.Er.24h PO 150 mg DAILY IAN Administration Vitamin D 1,000 units 03/09/24 09:00 03/15/24 09:20 Cholecalciferol 1,000 Units Tablet PO 1,000 units DAILY IAN Administration Warfarin Sodium 9 mg 03/11/24 17:00 03/13/24 17:40 Warfarin (*Pbkc) 3 Mg Tablet PO 9 mg DAILY@1700 IAN Administration Radiology Results: ITS Impressions Chest X-Ray 03/10/24 15:01 IMPRESSION: Persisting cardiomegaly with possible left lower lobe infiltrate, as detailed above. Labs Labs: Laboratory Results - last 24 hr 03/15/24 03/16/24 03/16/24 06:58 06:08 06:09 WBC 4.0 L RBC 3.31 L Hgb 10.9 L Hct 34.3 L MCV 103.6 H MCH 32.9 MCHC 31.8 L RDW 13.1 Plt Count 149 L MPV 13.0 H Immature Gran % (Auto) 0.3 Neut % (Auto) 42.6 L Lymph % (Auto) 30.3 Emmons % (Auto) 16.0 H Eos % (Auto) 10.0 H Baso % (Auto) 0.8 Lymph # (Auto) 1.21 Emmons # (Auto) 0.6 Eos # (Auto) 0.4 H Baso # (Auto) 0.0 Abs Immat Gran (auto) 0.01 Absolute Neuts (auto) 1.7 Absolute Nucleated RBC 0.000 Nucleated RBC % 0.0 % Immature Plt Fraction 14.2 H PT 38.2 H INR 3.9 Sodium 135 L Potassium 3.6 Chloride 99 Carbon Dioxide 35 H Anion Gap 1 L BUN 14 Creatinine 1.33 H Estim Creat Clear Calc 32 Estimated GFR 38 L Glucose 77 Calcium 9.5 NT-Pro-B Natriuret Pep 6360 H Quality VTE Prophylaxis VTE prophylaxis: pharmacologic ordered
[2024-03-16] MEDS: FUROSEMIDE 20 MG TABLET PO (08:11)
[2024-03-16] MEDS: CYANOCOBALAMIN 1,000 MCG TABLET 1000 MCG PO (08:11)
[2024-03-16] MEDS: PANTOPRAZOLE 40 MG TABLET PO (08:11)
[2024-03-16] MEDS: VENLAFAXINE HCL XR 75 MG CAP.ER.24H 150 MG PO (08:11)
[2024-03-16] MEDS: methiMAzole 5 MG TAB PO (08:11)
[2024-03-16] MEDS: ENOXAPARIN 80 MG/0.8 ML SYRINGE SUB-Q ×2 (08:11→21:27)
[2024-03-16] MEDS: BENZOCAINE/MENTHOL (*BKC) 18 EA LOZENGE 1 LOZENGE PO (08:17)
[2024-03-16] MEDS: FUROSEMIDE INJ 40 MG/4 ML VIAL 20 MG IV PUSH (08:36)
--- NOTE | 2024-03-16 11:16 | PCNWS ---
Weekly nutritional screen. Patient is tolerating current diet with varied intake, 30-80% on heart healthy diet. No weight loss reported. No nutritional needs at this time.
[2024-03-16] MEDS: DICLOFENAC SODIUM 1% 100 GM GEL (*BKC) 1 APPLIC TOPICAL (17:33)
[2024-03-16] MEDS: MELATONIN 5 MG TABLET PO (21:26)
[2024-03-16] MEDS: POTASSIUM CHLORIDE 10 MEQ ER TABLET PO (21:26)
[2024-03-16] MEDS: SIMVASTATIN 10 MG TABLET PO (21:26)
[2024-03-17] VITALS (9 sets, daily range): BP systolic 117–149; BP diastolic 63–81; PULSE 57–108; RESP 16–18; TEMP 36.4–36.8; O2SAT 91–94
[2024-03-17] MEDS: HYDROcodone/acetaminophen (*CRX) 5-325 MG TABLET 1 TAB PO ×3 (00:16→21:30)
[2024-03-17] MEDS: ALPRAZolam (*CRX) 0.25 MG TABLET PO ×2 (00:16→21:30)
[2024-03-17] MEDS: METOPROLOL TARTRATE 12.5 MG TABLET PO ×4 (05:33→23:43)
[2024-03-17] MEDS: methiMAzole 5 MG TAB PO (09:26)
[2024-03-17] MEDS: PANTOPRAZOLE 40 MG TABLET PO (09:26)
[2024-03-17] MEDS: CYANOCOBALAMIN 1,000 MCG TABLET 1000 MCG PO (09:26)
[2024-03-17] MEDS: guaiFENesin 12 HR 600 MG TABCR 1200 MG PO ×2 (09:26→21:30)
[2024-03-17] MEDS: CHOLECALCIFEROL 1,000 UNITS TABLET 1000 UNITS PO (09:26)
[2024-03-17] MEDS: GABAPENTIN 300 MG CAPSULE PO ×2 (09:26→21:29)
[2024-03-17] MEDS: ENOXAPARIN 80 MG/0.8 ML SYRINGE SUB-Q ×2 (09:26→21:30)
[2024-03-17] MEDS: VENLAFAXINE HCL XR 75 MG CAP.ER.24H 150 MG PO (09:26)
[2024-03-17 09:36] LABS: Basophils Percent Auto 0.4 % (0.2-1.2); Eosinophils Absolute Auto 0.2 K/mm3 (0-0.3); Eosinophils Percent Auto 2.7 % (0-4.4); Hematocrit 35.5 % (37.0-47.0); Hemoglobin 11.3 g/dL (12.0-15.0); Immature Granulocyte Absolute 0.03 K/mm3 (0.00-0.031); Immature Granulocyte Percent A 0.4 % (0-0.5); Immature Platelet Fraction Pct 15.9 % (0.9-11.2); Lymphocytes Absolute Auto 1.13 K/mm3 (0.9-3.2); Lymphocytes Percent Auto 15.2 % (18.3-44.2); Mean Corpuscular HGB Conc 31.8 g/dl (32-36); Mean Corpuscular Hemoglobin 33.1 pg (26-34); Mean Corpuscular Volume 104.1 fl (80-100); Monocytes Absolute Auto 1.2 K/mm3 (0.1-0.6); Monocytes Percent Auto 15.8 % (2.6-8.5); Neutrophils Absolute Auto 4.9 K/mm3 (1.3-6.7); Neutrophils Percent Auto 65.5 % (45.5-73.1); Platelet Count Result 172 k/mm3 (150-375); Red Blood Count 3.41 M/mm3 (4.2-5.4); Red Cell Distribution Width 13.2 % (11.5-14.5); White Blood Count 7.4 K/mm3 (4.5-10.0)
[2024-03-17 09:47] LABS: Alanine Aminotransferase 20 U/L (6-35); Albumin Level 3.4 g/dL (3.5-5.1); Alkaline Phosphatase 65 U/L (38-126); Anion Gap 2 mmol/L (4-12); Aspartate Amino Transferase 39 U/L (14-36); Bilirubin,Total 0.6 mg/dL (0.2-1.3); Blood Urea Nitrogen 24 mg/dL (7-17); Calcium 9.7 mg/dL (8.4-10.2); Carbon Dioxide 35 mmol/L (22-30); Chloride 98 mmol/L (98-107); Estimated CRCL calculation 31 ml/min; Estimated Glomerular Filt Rate 36; Glucose 133 mg/dL (65-110); Potassium 4.1 mmol/L (3.4-5.0); Sodium 135 mmol/L (137-145)
[2024-03-17 09:50] LABS: INR 3.3; Prothrombin Time 33.5 Seconds (11.1-14.7)
--- NOTE | 2024-03-17 12:00 | P.PNIM_ITS ---
Progress Note: A&P Assessment and Plan (1) Mechanical heart valve present: Code(s): Z95.2 - Presence of prosthetic heart valve Status: Acute Assessment and Plan: Audible mechanical heart valve. INR subtherapeutic for several days, 1.5, 1.4, 1 today. Next of Kin, PCP manages INR and warfarin doses for her. Next of Kin, Anshul coordinates with the office. The last 2 weeks before admission she was taking 6 mg thursday-, 5mg thursday, sat, sun. Generally has INR checks ever 2 weeks Goal INR 2.5-3.5 with her mechanical valve. Izzy reports 9mg daily is a higher dose than she has needed previously --Started a heparin drip with a bolus for subtherapeutic INR --Follow CBC since trending down but may be dilutional. Stable overnight --Warfarin 8mg<9mg daily --Daily INR, closer to goal --Coordinate INR checks & follow up plan with PCP's office, Dr. Sanjeev Rosenberg 03/07 1.5 03/08 Warfarin 6mg 03/09 1.4 Warfarin 6mg 03/10 1 Warfarin 8mg 03/11 1.7 Warfarin 9mg 03/12 2.1 & 2.2 Warfarin 9mg (lab said it was likely run twice for a precision check) 03/14: * 3.9 - Will hold tonight's dose. * Continue to trend daily INR's * Therapeutically dosed Lovenox is discontinued at this time as pt has been receiving it as a bridge. 03/15 * INR 4.1 * Continue to hold Warfarin * Continue to trend daily INR * Reports passing a small amount of bright red blood today after bowel movement * Continue to monitor. * Patient on Augmentin which can make therapeutic trend challenging 03/16 * INR 3.9 * Continue to hold Warfarin 03/17 * INR 3.3 * Continue to hold Warfarin (2) Palpitations: Code(s): R00.2 - Palpitations Status: Acute Assessment and Plan: - Likely due to PAF with RVR. - Better after hydration and resuming home meds. 03/14/24 * Rate now controlled significantly better. * Continue Telemetry. * Continue to monitor. 03/15/24 * Rate controlled in the 90's * Discontinue telemetry * Hold Warfarin for supratherapeutic INR 03/16 * Continue to hold Warfarin (3) Acute kidney injury: Code(s): N17.9 - Acute kidney failure, unspecified Status: Acute Assessment and Plan: Ddx pre-renal vs poor PO intake vs meds vs other. s/p 500 bolus with tachycardia --Resumed lasix --Creatinine stable 03/14/24: * Continue Lasix as ordered * Creatinine today 1.2, at baseline. * Continue to trend and monitor. 03/15/23: * Creatinine 1.16 currently at baseline 03/16 * Creatinine 1.33 03/17 * Creatinine 1.41 (4) HTN (hypertension): Qualifiers: Hypertension type: primary hypertension Qualified Code(s): I10 - Essential (primary) hypertension Code(s): I10 - Essential (primary) hypertension Status: Acute Assessment and Plan: - Appears well controlled. - Continue metoprolol, changed from XL to IR for titration - Follow VS 03/14/24: * Continuing to trend and monitor. Stable 03/15/24: * Blood pressures ranging 125/54-150/68 * Continue Metoprolol (5) Hyperlipidemia: Qualifiers: Hyperlipidemia type: mixed hyperlipidemia Qualified Code(s): E78.2 - Mixed hyperlipidemia Code(s): E78.5 - Hyperlipidemia, unspecified Status: Acute Assessment and Plan: * continue simvastatin (6) Shortness of breath: Code(s): R06.02 - Shortness of breath Status: Acute Assessment and Plan: Mildly tachypneic. Not obviously overloaded on exam, likely 2/2 pneumonia --Started heparin drip, if not resolved consider a CT r/o PE, but is on warfarin chronically for mechanical heart valve --Treatment of pneumonia and heart failure, rate control afib --PEP therapy for airway clearance 03/14/24: * Continue Unasyn for underlying cause of PNA. * Wean oxygen for sats >90%. Nursing order placed. * Continue to trend. 03/15/23: * Will change to Augmentin today * Currently on 2L NC * Continue to wean for a saturation greater than 90%. 03/16 * Continue to wean O2 * Currently on 2L NC * lasix 40 mg IVP given today 03/17 * Currently on room air * Will add home dose of 20 mg Lasix oral (7) Anemia: Code(s): D64.9 - Anemia, unspecified Status: Acute Assessment and Plan: Blood count trending down since admission but may be dilutional 14.2>11.1 Iron panel showing iron deficiency anemia, Total Iron and Tsat low. B12 636. LDH 245 --iron sucrose 300mg x3 doses --Follow CBC --If downtrending would need GI consult on chronic anticoagulation 03/14/24: * Hgb further declined today to 10.5. * Small drop, continue to monitor. * Pt just finished her third dose of Venofer. * Occult blood ordered from stool. * Consider GI consult if further declination as she is on chronic anticoagulation. * Pt's INR today is 3.9. Her dose of Coumadin for tonight is held and will need restarted tomorrow if applicable. In addition, the pt's Therapeutically dosed bridge Lovenox is discontinued today. * Monitor for any s/s of acute bleeding. 03/15/23: * Hgb 10.3 today * Patient had 3 doses of Venofer * collect occult blood stool 03/16 * No real change, Hgb 10.9 (8) Heart failure, diastolic, acute on chronic: Code(s): I50.33 - Acute on chronic diastolic (congestive) heart failure Status: Acute Assessment and Plan: 08/24/23 Echo: TDS. EF 45%, biatrial enlargement, suspect (YADIRA 1.4 cm2), mod MR, mild-mod TR. s/p 500ml fluid bolus, now back on IV lasix NT-proBNP 10,000 Resume lasix, 20mg IV daily & increase as able TTE 03/14/24: * Chronic in nature. * Appears euvolemic. * Continue Lasix 03/15/23: * Will increase to 40 mg IVP lasix today * Course bilaterally with peripheral swelling 03/16 * continue Lasix 03/17 * Transition to oral Lasix * Appears euvolemic (9) Pneumonia: Code(s): J18.9 - Pneumonia, unspecified organism Status: Acute Assessment and Plan: Hospital associated pneumonia. Chest x-ray showed possible RLL pneumonia. Has crackles on exam. Intermittent fevers. Resolved today after starting unasyn. On room air --Started Unasyn, change to augmentin if improving --If new oxygen requirements, broaden to Cefepime/Vanc/Flagyl --Also has a sore throat, checking strep culture. Chlorseptic drops & tylenol prn --Urine for strep pneumo --Follow up chest x-ray if new oxygen requirement or not resolving --Staph screen. Can broaden to Cefepime/Vanc if worsening --Sputum culture if able to collect. Would only use to guide treatment if not improving with current antibiotics 03/14/24: * Continue Unasyn. Could likely switch to oral Augmentin tomorrow. 03/15/24: * Unasyn changed to Augmentin (10) Atrial fibrillation with RVR: Code(s): I48.91 - Unspecified atrial fibrillation Status: Acute Assessment and Plan: Home metoprolol ER 25mg daily Resting HR 70s-90s, 100-130's with activity on 03/10. Rate controlled with increas ed dose of metoprolol and a 500ml fluid bolus - Change Metoprolol ER 25mg daily to metoprolol tartrate 12.5mg q6 and titrate. 5mg IV metoprolol --INR goal as noted for mechanical heart valve. INR can be affected by antibiotics --Cardiology consulted, appreciate recommendations 03/15/24: * Rate controlled in the 90's * Continue Metoprolol * D/C continuous tele * Hold Warfarin due to supratherapeutic INR 03/17 * Continue to hold Warfarin Time Spent With Patient Time with patient: 15 - 25 minutes Subjective Date/time seen: 03/17/24 12:00 Interval history: Interval history: This is a 78 year old female who presented to the hospital on 03/08/24 with complaints of chest discomfort and palpitations. she was found to be in A fib RVR and was given Metoprolol in the ER. She was continued on Warfarin and Metoprolol. She was noted to have an OLIVE as well and was given IVF. Her heart rate and kidney function improved with Metoprolol and IVF. Subjective: INR down to 3.3 today. No new complaints. Review of Systems Review of Systems: All systems reviewed & are unremarkable except as noted in HPI and below Constitutional: Constitutional: Reports as per HPI and Reports no additional constitutional complaints Eyes: Eyes: Reports as per HPI and Reports no additional eye complaints ENT: Reports system reviewed and no additional complaints, except as documented and Reports as per HPI Cardiovascular: Cardiovascular: Reports as per HPI and Reports no additional cardiovascular complaints Respiratory: Respiratory: Reports as per HPI and Reports no additional respiratory complaints Gastrointestinal: Gastrointestinal: Reports as per HPI and Reports no additional gastrointestinal complaints Genitourinary: Genitourinary: Reports no additional female genitourinary complaints and Reports as per HPI Musculoskeletal: Musculoskeletal: Reports no additional musculoskeletal complaints and Reports as per HPI Integumentary/Breasts: Skin/Breast: Reports system reviewed and no additional complaints, except as docu and Reports as per HPI Neurologic: Reports system reviewed and no additional complaints, except as documented and Reports as per HPI Psychiatric: Psychiatric: Reports no additional psychiatric complaints and Reports as per HPI Exam Narrative: General: In no acute distress, well nourished Cardiac: Normal S1 and S2. RRR, No murmur, gallops or friction rubs, peripheral pulses intact. Respiratory: Lungs clear , no adventitious lung sounds, currently on room air Gastrointestinal: soft, non-distended, non-tender, normoactive bowel sounds. : voiding without difficulty. Neuro: Alert and oriented x4 Objective Data Vital Signs Vital Signs: Vital Signs - 24 hr 03/16/24 16:00 03/16/24 17:29 03/16/24 19:51 Temperature 98.4 F 97.8 F Pulse Rate 76 90 87 Respiratory Rate 18 16 Blood Pressure 128/75 138/78 Pulse Oximetry 91 95 Oxygen Delivery 03/16/24 20:00 03/16/24 23:35 03/17/24 05:33 Temperature Pulse Rate 87 108 H Respiratory Rate Blood Pressure Pulse Oximetry Oxygen Delivery Room Air 03/17/24 05:34 Temperature 97.6 F Pulse Rate 57 L Respiratory Rate 16 Blood Pressure 149/77 H Pulse Oximetry 93 Oxygen Delivery Intake/Output Intake/Output: Intake & Output 03/14/24 03/15/24 03/16/24 03/17/24 23:59 23:59 23:59 23:59 Intake Total 1540 6712 407 1626 Output Total 950 1200 Balance 590 788 039 1701 Meds/Results Medications: Active Medications Generic Name Dose Route Start Last Admin Trade Name Freq PRN Reason Stop Dose Admin Acetaminophen 1,000 mg 03/10/24 10:04 03/11/24 00:10 Acetaminophen 500 Mg Tablet PO 1,000 mg Q6H PRN Administration Mild Pain (1-3) or Fever Hydrocodone Bitart/Acetaminophen 1 tab 03/08/24 17:21 03/17/24 09:26 Hydrocodone/Acetaminophen (*Crx) 5-325 Mg Tablet PO 1 tab Q6H PRN Administration Pain Rated 4-6 Albuterol 2 puff 03/08/24 17:21 Albuterol Sulfate (*Sp) Aerosol 1 Puff INHALATION QID PRN Shortness Of Breath Alprazolam 0.25 mg 03/08/24 17:21 03/17/24 00:16 Alprazolam (*Crx) 0.25 Mg Tablet PO 0.25 mg HS PRN Administration Anxiety Amoxicillin/Clavulanate Potassium 1 tablet 03/15/24 21:00 03/16/24 21:25 Amoxicillin/Clavulanate K 875-125 Mg Tab PO 1 tablet Q12HR IAN Administration Benzocaine 1 lozenge 03/10/24 18:17 03/16/24 08:17 Benzocaine/Menthol (*Bkc) 18 Ea Lozenge PO 1 lozenge PRN PRN Administration Sore Throat Cyanocobalamin 1,000 mcg 03/09/24 09:00 03/17/24 09:26 Cyanocobalamin 1,000 Mcg Tablet PO 1,000 mcg DAILY IAN Administration Diclofenac Sodium 1 applic 03/10/24 10:04 03/16/24 17:33 Diclofenac Sodium 1% 100 Gm Gel (*Bkc) TOPICAL 1 applic QID PRN Administration joint pain Enoxaparin Sodium 80 mg 03/13/24 21:50 03/17/24 09:26 Enoxaparin 80 Mg/0.8 Ml Syringe SUB-Q 80 mg Q12HR IAN Administration Furosemide 20 mg 03/16/24 09:00 03/16/24 08:11 Furosemide 20 Mg Tablet PO 20 mg DAILY IAN Administration Gabapentin 300 mg 03/08/24 21:00 03/17/24 09:26 Gabapentin 300 Mg Capsule PO 300 mg Q12HR IAN Administration Guaifenesin 1,200 mg 03/13/24 12:50 03/17/24 09:26 Guaifenesin 12 Hr 600 Mg Tabcr PO 1,200 mg Q12HR IAN Administration Guaifenesin/Dextromethorphan 10 ml 03/11/24 23:14 03/14/24 07:53 Guaifenesin/Dextromethorphan 10 Ml Udc PO 10 ml Q4H PRN Administration Cough Hydromorphone HCl 0.2 mg 03/10/24 12:48 Hydromorphone Hcl Inj (*Crx) 1 Mg/Ml Syr IV PUSH Q6H PRN Pain Rated 7-10 Melatonin 5 mg 03/15/24 21:00 03/16/24 21:26 Melatonin 5 Mg Tablet PO 5 mg HS IAN Administration Methimazole 5 mg 03/09/24 09:00 03/17/24 09:26 Methimazole 5 Mg Tab PO 5 mg DAILY IAN Administration Metoprolol Tartrate 12.5 mg 03/10/24 07:35 03/17/24 05:33 Metoprolol Tartrate 12.5 Mg Tablet PO 12.5 mg Q6HR IAN Administration Cinacalcet 15 Mg 0 each 03/10/24 09:00 03/16/24 08:10 Tablet PO 04/09/24 08:59 15 each DAILY IAN Administration Pantoprazole Sodium 40 mg 03/09/24 09:00 03/17/24 09:26 Pantoprazole 40 Mg Tablet PO 40 mg QAM IAN Administration Potassium Chloride 10 meq 03/08/24 21:00 03/16/24 21:26 Potassium Chloride 10 Meq Er Tablet PO 10 meq HS IAN Administration Simvastatin 10 mg 03/08/24 21:00 03/16/24 21:26 Simvastatin 10 Mg Tablet PO 10 mg HS IAN Administration Venlafaxine HCl 150 mg 03/09/24 09:00 03/17/24 09:26 Venlafaxine Hcl Xr 75 Mg Cap.Er.24h PO 150 mg DAILY IAN Administration Vitamin D 1,000 units 03/09/24 09:00 03/17/24 09:26 Cholecalciferol 1,000 Units Tablet PO 1,000 units DAILY IAN Administration Warfarin Sodium 9 mg 03/11/24 17:00 03/13/24 17:40 Warfarin (*Pbkc) 3 Mg Tablet PO 9 mg DAILY@1700 IAN Administration Radiology Results: ITS Impressions Chest X-Ray 03/10/24 15:01 IMPRESSION: Persisting cardiomegaly with possible left lower lobe infiltrate, as detailed above. Labs Labs: Laboratory Results - last 24 hr 03/17/24 08:54 WBC 7.4 RBC 3.41 L Hgb 11.3 L Hct 35.5 L MCV 104.1 H MCH 33.1 MCHC 31.8 L RDW 13.2 Plt Count 172 MPV 14.0 H Immature Gran % (Auto) 0.4 Neut % (Auto) 65.5 Lymph % (Auto) 15.2 L [place] % (Auto) 15.8 H Eos % (Auto) 2.7 Baso % (Auto) 0.4 Lymph # (Auto) 1.13 [place] # (Auto) 1.2 H Eos # (Auto) 0.2 Baso # (Auto) 0.0 Abs Immat Gran (auto) 0.03 Absolute Neuts (auto) 4.9 Absolute Nucleated RBC 0.000 Nucleated RBC % 0.0 % Immature Plt Fraction 15.9 H PT 33.5 H INR 3.3 Sodium 135 L Potassium 4.1 Chloride 98 Carbon Dioxide 35 H Anion Gap 2 L BUN 24 H D Creatinine 1.41 H Estim Creat Clear Calc 31 Estimated GFR 36 L Glucose 133 H Calcium 9.7 Total Bilirubin 0.6 AST 39 H ALT 20 Alkaline Phosphatase 65 Total Protein 6.0 L Albumin 3.4 L Quality VTE Prophylaxis VTE prophylaxis: pharmacologic ordered
[2024-03-17] MEDS: CINACALCET PO (12:41)
[2024-03-17] MEDS: AMOXICILLIN/CLAVULANATE K 875-125 MG TAB 1 TABLET PO ×2 (12:42→21:29)
[2024-03-17] MEDS: DICLOFENAC SODIUM 1% 100 GM GEL (*BKC) 1 APPLIC TOPICAL (18:34)
[2024-03-17] MEDS: MELATONIN 5 MG TABLET PO (21:29)
[2024-03-17] MEDS: SIMVASTATIN 10 MG TABLET PO (21:30)
[2024-03-17] MEDS: POTASSIUM CHLORIDE 10 MEQ ER TABLET PO (21:30)
[2024-03-18] VITALS (9 sets, daily range): BP systolic 109–135; BP diastolic 52–88; PULSE 59–128; RESP 18–20; TEMP 36.5–37.3; O2SAT 91–94
[2024-03-18] MEDS: METOPROLOL TARTRATE 12.5 MG TABLET PO ×2 (05:16→12:14)
[2024-03-18 06:39] LABS: Immature Platelet Fraction Pct 15.8 % (0.9-11.2); Mean Platelet Volume 13.6 fl (7.4-10.4); Platelet Count Result 174 k/mm3 (150-375)
[2024-03-18 06:48] LABS: Estimated CRCL calculation 33 ml/min; Estimated Glomerular Filt Rate 40
[2024-03-18 06:54] LABS: INR 3.4; Prothrombin Time 34.4 Seconds (11.1-14.7)
[2024-03-18] MEDS: CHOLECALCIFEROL 1,000 UNITS TABLET 1000 UNITS PO (10:22)
[2024-03-18] MEDS: AMOXICILLIN/CLAVULANATE K 875-125 MG TAB 1 TABLET PO (10:22)
[2024-03-18] MEDS: GABAPENTIN 300 MG CAPSULE PO ×2 (10:22→20:29)
[2024-03-18] MEDS: FUROSEMIDE 20 MG TABLET PO (10:22)
[2024-03-18] MEDS: PANTOPRAZOLE 40 MG TABLET PO (10:22)
[2024-03-18] MEDS: ENOXAPARIN 80 MG/0.8 ML SYRINGE SUB-Q ×2 (10:22→20:29)
[2024-03-18] MEDS: CYANOCOBALAMIN 1,000 MCG TABLET 1000 MCG PO (10:23)
[2024-03-18] MEDS: methiMAzole 5 MG TAB PO (10:23)
[2024-03-18] MEDS: VENLAFAXINE HCL XR 75 MG CAP.ER.24H 150 MG PO (10:23)
[2024-03-18] MEDS: guaiFENesin 12 HR 600 MG TABCR 1200 MG PO ×2 (10:23→20:29)
[2024-03-18] MEDS: HYDROcodone/acetaminophen (*CRX) 5-325 MG TABLET 1 TAB PO (10:23)
[2024-03-18] MEDS: CINACALCET PO (10:24)
--- NOTE | 2024-03-18 11:29 | PC.NURSE ---
RN spoke with patient's sister Shannon via telephone and gave her an update on patient status.
--- NOTE | 2024-03-18 12:19 | PC.NURSE ---
Addendum entered by Ion Mcfarlane RN 03/18/24 12:54: [facility]ise is at [facility] at this time time. Will see patient this afternoon. RN called Ela CHOI with cardiology and updated her on patient changes. See orders. Original Note: Heart rate on vitals machine was showing 180's. RN tried taking a manual pulse on the wrist and an apical pulse. Unsuccessful with both. 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 Heart rate reading 120's-130's. motorcycle police officer aware. Will update hospitaljenifer Denise.
--- NOTE | 2024-03-18 12:25 | ECG_ITS ---
Test Date: 2024-03-18 13:33:35 Measurements Intervals [place] Rate: 120 P: 0 NE: 0 QRS: -35 QRSD: 153 T: 139 QT: 362 QTc: 511 Interpretive Statements ATRIAL FIBRILLATION WITH RAPID VENTRICULAR RESPONSE LEFT AXIS DEVIATION [QRS AXIS < -30] LEFT BUNDLE BRANCH BLOCK [120+ ms QRS DURATION, 80+ ms Q/S IN V1/V2, 85+ ms R IN I/aVL/V5/V6] ABNORMAL ECG Electronically Signed On 03-19-2024 10:36:10 [employer] by Dov Alonso M.D.
--- NOTE | 2024-03-18 15:41 | P.PNIM_ITS ---
Progress Note: A&P Assessment and Plan (1) Mechanical heart valve present: Code(s): Z95.2 - Presence of prosthetic heart valve Status: Acute Assessment and Plan: Audible mechanical heart valve. INR subtherapeutic for several days, 1.5, 1.4, 1 today. Next of Kin, PCP manages INR and warfarin doses for her. Next of Kin, Anshul coordinates with the office. The last 2 weeks before admission she was taking 6 mg thursday-, 5mg thursday, sat, sun. Generally has INR checks ever 2 weeks Goal INR 2.5-3.5 with her mechanical valve. Izzy reports 9mg daily is a higher dose than she has needed previously --Started a heparin drip with a bolus for subtherapeutic INR --Follow CBC since trending down but may be dilutional. Stable overnight --Warfarin 8mg<9mg daily --Daily INR, closer to goal --Coordinate INR checks & follow up plan with PCP's office, Dr. Sanjeev Rosenberg 03/07 1.5 03/08 Warfarin 6mg 03/09 1.4 Warfarin 6mg 03/10 1 Warfarin 8mg 03/11 1.7 Warfarin 9mg 03/12 2.1 & 2.2 Warfarin 9mg (lab said it was likely run twice for a precision check) 03/14: * 3.9 - Will hold tonight's dose. * Continue to trend daily INR's * Therapeutically dosed Lovenox is discontinued at this time as pt has been receiving it as a bridge. 03/15 * INR 4.1 * Continue to hold Warfarin * Continue to trend daily INR * Reports passing a small amount of bright red blood today after bowel movement * Continue to monitor. * Patient on Augmentin which can make therapeutic trend challenging 03/16 * INR 3.9 * Continue to hold Warfarin 03/17 * INR 3.3 * Continue to hold Warfarin 03/18 * INR 3.4 * Continue to hold Warfarin for now (2) Palpitations: Code(s): R00.2 - Palpitations Status: Acute Assessment and Plan: - Likely due to PAF with RVR. - Better after hydration and resuming home meds. 03/14/24 * Rate now controlled significantly better. * Continue Telemetry. * Continue to monitor. 03/15/24 * Rate controlled in the 90's * Discontinue telemetry * Hold Warfarin for supratherapeutic INR 03/16 * Continue to hold Warfarin (3) Acute kidney injury: Code(s): N17.9 - Acute kidney failure, unspecified Status: Acute Assessment and Plan: Ddx pre-renal vs poor PO intake vs meds vs other. s/p 500 bolus with tachycardia --Resumed lasix --Creatinine stable 03/14/24: * Continue Lasix as ordered * Creatinine today 1.2, at baseline. * Continue to trend and monitor. 03/15/23: * Creatinine 1.16 currently at baseline 03/16 * Creatinine 1.33 03/17 * Creatinine 1.41 03/18 * stable (4) HTN (hypertension): Qualifiers: Hypertension type: primary hypertension Qualified Code(s): I10 - Essential (primary) hypertension Code(s): I10 - Essential (primary) hypertension Status: Acute Assessment and Plan: - Appears well controlled. - Continue metoprolol, changed from XL to IR for titration - Follow VS 03/14/24: * Continuing to trend and monitor. Stable 03/15/24: * Blood pressures ranging 125/54-150/68 * Continue Metoprolol (5) Hyperlipidemia: Qualifiers: Hyperlipidemia type: mixed hyperlipidemia Qualified Code(s): E78.2 - Mixed hyperlipidemia Code(s): E78.5 - Hyperlipidemia, unspecified Status: Acute Assessment and Plan: * continue simvastatin (6) Shortness of breath: Code(s): R06.02 - Shortness of breath Status: Acute Assessment and Plan: Mildly tachypneic. Not obviously overloaded on exam, likely 2/2 pneumonia --Started heparin drip, if not resolved consider a CT r/o PE, but is on warfarin chronically for mechanical heart valve --Treatment of pneumonia and heart failure, rate control afib --PEP therapy for airway clearance 03/14/24: * Continue Unasyn for underlying cause of PNA. * Wean oxygen for sats >90%. Nursing order placed. * Continue to trend. 03/15/23: * Will change to Augmentin today * Currently on 2L NC * Continue to wean for a saturation greater than 90%. 03/16 * Continue to wean O2 * Currently on 2L NC * lasix 40 mg IVP given today 03/17 * Currently on room air * Will add home dose of 20 mg Lasix oral (7) Anemia: Code(s): D64.9 - Anemia, unspecified Status: Acute Assessment and Plan: Blood count trending down since admission but may be dilutional 14.2>11.1 Iron panel showing iron deficiency anemia, Total Iron and Tsat low. B12 636. LDH 245 --iron sucrose 300mg x3 doses --Follow CBC --If downtrending would need GI consult on chronic anticoagulation 03/14/24: * Hgb further declined today to 10.5. * Small drop, continue to monitor. * Pt just finished her third dose of Venofer. * Occult blood ordered from stool. * Consider GI consult if further declination as she is on chronic anticoagulation. * Pt's INR today is 3.9. Her dose of Coumadin for tonight is held and will need restarted tomorrow if applicable. In addition, the pt's Therapeutically dosed bridge Lovenox is discontinued today. * Monitor for any s/s of acute bleeding. 03/15/23: * Hgb 10.3 today * Patient had 3 doses of Venofer * collect occult blood stool 03/16 * No real change, Hgb 10.9 (8) Heart failure, diastolic, acute on chronic: Code(s): I50.33 - Acute on chronic diastolic (congestive) heart failure Status: Acute Assessment and Plan: 08/24/23 Echo: TDS. EF 45%, biatrial enlargement, suspect (YADIRA 1.4 cm2), mod MR, mild-mod TR. s/p 500ml fluid bolus, now back on IV lasix NT-proBNP 10,000 Resume lasix, 20mg IV daily & increase as able TTE 03/14/24: * Chronic in nature. * Appears euvolemic. * Continue Lasix 03/15/23: * Will increase to 40 mg IVP lasix today * Course bilaterally with peripheral swelling 03/16 * continue Lasix 03/17 * Transition to oral Lasix * Appears euvolemic 03/18 * Flipped into A fib with RVR today * Lungs sounding course * Will repeat CXR now * Last Echo on 03/11/24 shown LVEF of 3-40% (9) Pneumonia: Code(s): J18.9 - Pneumonia, unspecified organism Status: Acute Assessment and Plan: Hospital associated pneumonia. Chest x-ray showed possible RLL pneumonia. Has crackles on exam. Intermittent fevers. Resolved today after starting unasyn. On room air --Started Unasyn, change to augmentin if improving --If new oxygen requirements, broaden to Cefepime/Vanc/Flagyl --Also has a sore throat, checking strep culture. Chlorseptic drops & tylenol prn --Urine for strep pneumo --Follow up chest x-ray if new oxygen requirement or not resolving --Staph screen. Can broaden to Cefepime/Vanc if worsening --Sputum culture if able to collect. Would only use to guide treatment if not improving with current antibiotics 03/14/24: * Continue Unasyn. Could likely switch to oral Augmentin tomorrow. 03/15/24: * Unasyn changed to Augmentin 03/18/24 * Augmentin finished today (10) Atrial fibrillation with RVR: Code(s): I48.91 - Unspecified atrial fibrillation Status: Acute Assessment and Plan: Home metoprolol ER 25mg daily Resting HR 70s-90s, 100-130's with activity on 03/10. Rate controlled with increased dose of metoprolol and a 500ml fluid bolus - Change Metoprolol ER 25mg daily to metoprolol tartrate 12.5mg q6 and titrate. 5mg IV metoprolol --INR goal as noted for mechanical heart valve. INR can be affected by antibiotics --Cardiology consulted, appreciate recommendations 03/15/24: * Rate controlled in the 90's * Continue Metoprolol * D/C continuous tele * Hold Warfarin due to supratherapeutic INR 03/17 * Continue to hold Warfarin 03/18 * Went back into Afib RVR today * Continue to hold Warfarin due to supratherapeutic INR * Will increase Metoprolol to 25 mg q6h for better rate control * Continue tele * Cardiology reconsulted * repeating CXR Time Spent With Patient Time with patient: 25 - 35 minutes Subjective Date/time seen: 03/18/24 15:41 Interval history: Interval history: This is a 78 year old female who presented to the hospital on 03/08/24 with complaints of chest discomfort and palpitations. she was found to be in A fib RVR and was given Metoprolol in the ER. She was continued on Warfarin and Metoprolol. She was noted to have an OLIVE as well and was given IVF. Her heart rate and kidney function improved with Metoprolol and IVF. Subjective: Reporting neck and leg pain that is typically chronic. She apparently flipped back into A fib RVR today with HR as high as 180. She was placed back on telemetry. B/P was stable. Cardiology reconsulted. Labs and imaging reviewed. Review of Systems Review of Systems: All systems reviewed & are unremarkable except as noted in HPI and below Constitutional: Constitutional: Reports as per HPI and Reports no additional constitutional complaints Eyes: Eyes: Reports as per HPI and Reports no additional eye complaints ENT: Reports system reviewed and no additional complaints, except as docum ented and Reports as per HPI Cardiovascular: Cardiovascular: Reports as per HPI and Reports no additional cardiovascular complaints Respiratory: Respiratory: Reports as per HPI and Reports no additional respiratory complaints Gastrointestinal: Gastrointestinal: Reports as per HPI and Reports no additional gastrointestinal complaints Genitourinary: Genitourinary: Reports no additional female genitourinary complaints and Reports as per HPI Musculoskeletal: Musculoskeletal: Reports no additional musculoskeletal complaints and Reports as per HPI Integumentary/Breasts: Skin/Breast: Reports system reviewed and no additional complaints, except as docu and Reports as per HPI Neurologic: Reports system reviewed and no additional complaints, except as documented and Reports as per HPI Psychiatric: Psychiatric: Reports no additional psychiatric complaints and Reports as per HPI Exam Narrative: General: In no acute distress, well nourished Cardiac: Normal S1 and S2. a fib on monitor No murmur, gallops or friction rubs, peripheral pulses intact. Respiratory: Lungs rhonchi bilaterally , no adventitious lung sounds, currently on room air Gastrointestinal: soft, non-distended, non-tender, normoactive bowel sounds. : voiding without difficulty. Neuro: Alert and oriented x4 Objective Data Vital Signs Vital Signs: Vital Signs - 24 hr 03/17/24 18:28 03/17/24 20:00 03/17/24 21:32 Temperature 98.2 F Pulse Rate 98 88 Respiratory Rate 18 Blood Pressure 127/74 Pulse Oximetry 94 Oxygen Delivery Room Air 03/17/24 23:43 03/18/24 05:16 03/18/24 05:37 Temperature 97.7 F Pulse Rate 88 90 91 Respiratory Rate 20 Blood Pressure 135/84 Pulse Oximetry 92 Oxygen Delivery 03/18/24 10:23 03/18/24 12:10 03/18/24 12:14 Temperature Pulse Rate 128 H Respiratory Rate Blood Pressure 121/88 Pulse Oximetry Oxygen Delivery Room Air Intake/Output Intake/Output: Intake & Output 03/15/24 03/16/24 03/17/24 03/18/24 23:59 23:59 23:59 23:59 Intake Total 5627 953 9948 518 Output Total 1200 450 Balance 456 305 3139 68 Meds/Results Medications: Active Medications Generic Name Dose Route Start Last Admin Trade Name Freq PRN Reason Stop Dose Admin Acetaminophen 1,000 mg 03/10/24 10:04 03/11/24 00:10 Acetaminophen 500 Mg Tablet PO 1,000 mg Q6H PRN Administration Mild Pain (1-3) or Fever Hydrocodone Bitart/Acetaminophen 1 tab 03/08/24 17:21 03/18/24 10:23 Hydrocodone/Acetaminophen (*Crx) 5-325 Mg Tablet PO 1 tab Q6H PRN Administration Pain Rated 4-6 Albuterol 2 puff 03/08/24 17:21 Albuterol Sulfate (*Sp) Aerosol 1 Puff INHALATION QID PRN Shortness Of Breath Alprazolam 0.25 mg 03/08/24 17:21 03/17/24 21:30 Alprazolam (*Crx) 0.25 Mg Tablet PO 0.25 mg HS PRN Administration Anxiety Benzocaine 1 lozenge 03/10/24 18:17 03/16/24 08:17 Benzocaine/Menthol (*Bkc) 18 Ea Lozenge PO 1 lozenge PRN PRN Administration Sore Throat Cyanocobalamin 1,000 mcg 03/09/24 09:00 03/18/24 10:23 Cyanocobalamin 1,000 Mcg Tablet PO 1,000 mcg DAILY IAN Administration Diclofenac Sodium 1 applic 03/10/24 10:04 03/17/24 18:34 Diclofenac Sodium 1% 100 Gm Gel (*Bkc) TOPICAL 1 applic QID PRN Administration joint pain Enoxaparin Sodium 80 mg 03/13/24 21:50 03/18/24 10:22 Enoxaparin 80 Mg/0.8 Ml Syringe SUB-Q 80 mg Q12HR IAN Administration Furosemide 20 mg 03/16/24 09:00 03/18/24 10:22 Furosemide 20 Mg Tablet PO 20 mg DAILY IAN Administration Gabapentin 300 mg 03/08/24 21:00 03/18/24 10:22 Gabapentin 300 Mg Capsule PO 300 mg Q12HR IAN Administration Guaifenesin 1,200 mg 03/13/24 12:50 03/18/24 10:23 Guaifenesin 12 Hr 600 Mg Tabcr PO 1,200 mg Q12HR IAN Administration Guaifenesin/Dextromethorphan 10 ml 03/11/24 23:14 03/14/24 07:53 Guaifenesin/Dextromethorphan 10 Ml Udc PO 10 ml Q4H PRN Administration Cough Hydromorphone HCl 0.2 mg 03/10/24 12:48 Hydromorphone Hcl Inj (*Crx) 1 Mg/Ml Syr IV PUSH Q6H PRN Pain Rated 7-10 Melatonin 5 mg 03/15/24 21:00 03/17/24 21:29 Melatonin 5 Mg Tablet PO 5 mg HS IAN Administration Methimazole 5 mg 03/09/24 09:00 03/18/24 10:23 Methimazole 5 Mg Tab PO 5 mg DAILY IAN Administration Metoprolol Tartrate 12.5 mg 03/10/24 07:35 03/18/24 12:14 Metoprolol Tartrate 12.5 Mg Tablet PO 12.5 mg Q6HR IAN Administration Cinacalcet 15 Mg 0 each 03/10/24 09:00 03/18/24 10:24 Tablet PO 04/09/24 08:59 1 each DAILY IAN Administration Pantoprazole Sodium 40 mg 03/09/24 09:00 03/18/24 10:22 Pantoprazole 40 Mg Tablet PO 40 mg QAM IAN Administration Potassium Chloride 10 meq 03/08/24 21:00 03/17/24 21:30 Potassium Chloride 10 Meq Er Tablet PO 10 meq HS IAN Administration Simvastatin 10 mg 03/08/24 21:00 03/17/24 21:30 Simvastatin 10 Mg Tablet PO 10 mg HS IAN Administration Venlafaxine HCl 150 mg 03/09/24 09:00 03/18/24 10:23 Venlafaxine Hcl Xr 75 Mg Cap.Er.24h PO 150 mg DAILY IAN Administration Vitamin D 1,000 units 03/09/24 09:00 03/18/24 10:22 Cholecalciferol 1,000 Units Tablet PO 1,000 units DAILY [facility] Administration Warfarin Sodium 9 mg 03/11/24 17:00 03/13/24 17:40 Warfarin (*Pbkc) 3 Mg Tablet PO 9 mg DAILY@1700 [facility] Administration Radiology Results: ITS Impressions Chest X-Ray 03/10/24 15:01 IMPRESSION: Persisting cardiomegaly with possible left lower lobe infiltrate, as detailed above. Labs Labs: Laboratory Results - last 24 hr 03/18/24 06:04 Plt Count 174 MPV 13.6 H % Immature Plt Fraction 15.8 H PT 34.4 H INR 3.4 Creatinine 1.29 H Estim Creat Clear Calc 33 Estimated GFR 40 L Quality VTE Prophylaxis VTE prophylaxis: pharmacologic ordered
--- NOTE | 2024-03-18 16:15 | PM.PNCARD ---
Subjective Date/time seen: 03/18/24 16:15 Objective Data Vital Signs Vital Signs: Vital Signs - 24 hr 03/17/24 18:28 03/17/24 20:00 03/17/24 21:32 Temperature 36.8 C Pulse Rate 98 88 Respiratory Rate 18 Blood Pressure 127/74 Pulse Oximetry 94 Oxygen Delivery Room Air 03/17/24 23:43 03/18/24 05:16 03/18/24 05:37 Temperature 36.5 C Pulse Rate 88 90 91 Respiratory Rate 20 Blood Pressure 135/84 Pulse Oximetry 92 Oxygen Delivery 03/18/24 10:23 03/18/24 12:10 03/18/24 12:14 Temperature Pulse Rate 128 H Respiratory Rate Blood Pressure 121/88 Pulse Oximetry Oxygen Delivery Room Air 03/18/24 14:00 Temperature 36.9 C Pulse Rate 59 L Respiratory Rate 18 Blood Pressure 127/58 L Pulse Oximetry 94 Oxygen Delivery Intake/Output Intake/Output: Intake & Output 03/15/24 03/16/24 03/17/24 03/18/24 23:59 23:59 23:59 23:59 Intake Total 8393 128 5165 758 Output Total 1200 450 Balance 346 288 0709 308 Meds/Results Medications: Active Medications Generic Name Dose Route Start Last Admin Trade Name Freq PRN Reason Stop Dose Admin Acetaminophen 1,000 mg 03/10/24 10:04 03/11/24 00:10 Acetaminophen 500 Mg Tablet PO 1,000 mg Q6H PRN Administration Mild Pain (1-3) or Fever Hydrocodone Bitart/Acetaminophen 1 tab 03/08/24 17:21 03/18/24 10:23 Hydrocodone/Acetaminophen (*Crx) 5-325 Mg Tablet PO 1 tab Q6H PRN Administration Pain Rated 4-6 Albuterol 2 puff 03/08/24 17:21 Albuterol Sulfate (*Sp) Aerosol 1 Puff INHALATION QID PRN Shortness Of Breath Alprazolam 0.25 mg 03/08/24 17:21 03/17/24 21:30 Alprazolam (*Crx) 0.25 Mg Tablet PO 0.25 mg HS PRN Administration Anxiety Benzocaine 1 lozenge 03/10/24 18:17 03/16/24 08:17 Benzocaine/Menthol (*Bkc) 18 Ea Lozenge PO 1 lozenge PRN PRN Administration Sore Throat Cyanocobalamin 1,000 mcg 03/09/24 09:00 03/18/24 10:23 Cyanocobalamin 1,000 Mcg Tablet PO 1,000 mcg DAILY IAN Administration Diclofenac Sodium 1 applic 03/10/24 10:04 03/17/24 18:34 Diclofenac Sodium 1% 100 Gm Gel (*Bkc) TOPICAL 1 applic QID PRN Administration joint pain Enoxaparin Sodium 80 mg 03/13/24 21:50 03/18/24 10:22 Enoxaparin 80 Mg/0.8 Ml Syringe SUB-Q 80 mg Q12HR IAN Administration Furosemide 20 mg 03/16/24 09:00 03/18/24 10:22 Furosemide 20 Mg Tablet PO 20 mg DAILY IAN Administration Gabapentin 300 mg 03/08/24 21:00 03/18/24 10:22 Gabapentin 300 Mg Capsule PO 300 mg Q12HR IAN Administration Guaifenesin 1,200 mg 03/13/24 12:50 03/18/24 10:23 Guaifenesin 12 Hr 600 Mg Tabcr PO 1,200 mg Q12HR IAN Administration Guaifenesin/Dextromethorphan 10 ml 03/11/24 23:14 03/14/24 07:53 Guaifenesin/Dextromethorphan 10 Ml Udc PO 10 ml Q4H PRN Administration Cough Hydromorphone HCl 0.2 mg 03/10/24 12:48 Hydromorphone Hcl Inj (*Crx) 1 Mg/Ml Syr IV PUSH Q6H PRN Pain Rated 7-10 Melatonin 5 mg 03/15/24 21:00 03/17/24 21:29 Melatonin 5 Mg Tablet PO 5 mg HS IAN Administration Methimazole 5 mg 03/09/24 09:00 03/18/24 10:23 Methimazole 5 Mg Tab PO 5 mg DAILY IAN Administration Metoprolol Tartrate 12.5 mg 03/10/24 07:35 03/18/24 12:14 Metoprolol Tartrate 12.5 Mg Tablet PO 12.5 mg Q6HR IAN Administration Cinacalcet 15 Mg 0 each 03/10/24 09:00 03/18/24 10:24 Tablet PO 04/09/24 08:59 1 each DAILY IAN Administration Pantoprazole Sodium 40 mg 03/09/24 09:00 03/18/24 10:22 Pantoprazole 40 Mg Tablet PO 40 mg QAM IAN Administration Potassium Chloride 10 meq 03/08/24 21:00 03/17/24 21:30 Potassium Chloride 10 Meq Er Tablet PO 10 meq HS IAN Administration Simvastatin 10 mg 03/08/24 21:00 03/17/24 21:30 Simvastatin 10 Mg Tablet PO 10 mg HS IAN Administration Venlafaxine HCl 150 mg 03/09/24 09:00 03/18/24 10:23 Venlafaxine Hcl Xr 75 Mg Cap.Er.24h PO 150 mg DAILY IAN Administration Vitamin D 1,000 units 03/09/24 09:00 03/18/24 10:22 Cholecalciferol 1,000 Units Tablet PO 1,000 units DAILY IAN Administration Warfarin Sodium 9 mg 03/11/24 17:00 03/13/24 17:40 Warfarin (*Pbkc) 3 Mg Tablet PO 9 mg DAILY@1700 IAN Administration Radiology Results: ITS Impressions Chest X-Ray 03/10/24 15:01 IMPRESSION: Persisting cardiomegaly with possible left lower lobe infiltrate, as detailed above. Labs Labs: Laboratory Results - last 24 hr 03/18/24 06:04 Plt Count 174 MPV 13.6 H % Immature Plt Fraction 15.8 H PT 34.4 H INR 3.4 Creatinine 1.29 H Estim Creat Clear Calc 33 Estimated GFR 40 L
[2024-03-18 16:59] LABS: Basophils Percent Auto 0.4 % (0.2-1.2); Eosinophils Absolute Auto 0.1 K/mm3 (0-0.3); Eosinophils Percent Auto 0.5 % (0-4.4); Hematocrit 34.6 % (37.0-47.0); Hemoglobin 10.9 g/dL (12.0-15.0); Immature Granulocyte Absolute 0.07 K/mm3 (0.00-0.031); Immature Granulocyte Percent A 0.7 % (0-0.5); Immature Platelet Fraction Pct 16.3 % (0.9-11.2); Lymphocytes Absolute Auto 1.05 K/mm3 (0.9-3.2); Lymphocytes Percent Auto 11.1 % (18.3-44.2); Mean Corpuscular HGB Conc 31.5 g/dl (32-36); Mean Corpuscular Hemoglobin 32.4 pg (26-34); Mean Platelet Volume 13.8 fl (7.4-10.4); Monocytes Absolute Auto 1.5 K/mm3 (0.1-0.6); Monocytes Percent Auto 15.6 % (2.6-8.5); Neutrophils Absolute Auto 6.7 K/mm3 (1.3-6.7); Neutrophils Percent Auto 71.7 % (45.5-73.1); Nucleated Red Blood Cells Perc 0.3 % (0.0-0.2); Platelet Count Result 188 k/mm3 (150-375); Red Blood Count 3.36 M/mm3 (4.2-5.4); Red Cell Distribution Width 13.2 % (11.5-14.5); White Blood Count 9.4 K/mm3 (4.5-10.0)
[2024-03-18 17:05] LABS: Magnesium 1.6 mg/dL (1.6-2.3)
[2024-03-18 17:08] LABS: Alanine Aminotransferase 28 U/L (6-35); Albumin Level 3.3 g/dL (3.5-5.1); Alkaline Phosphatase 81 U/L (38-126); Anion Gap 4 mmol/L (4-12); Aspartate Amino Transferase 47 U/L (14-36); Bilirubin,Total 0.7 mg/dL (0.2-1.3); Blood Urea Nitrogen 23 mg/dL (7-17); Calcium 9.7 mg/dL (8.4-10.2); Carbon Dioxide 33 mmol/L (22-30); Chloride 94 mmol/L (98-107); Estimated CRCL calculation 37 ml/min; Estimated Glomerular Filt Rate 45; Glucose 128 mg/dL (65-110); Potassium 3.9 mmol/L (3.4-5.0); Sodium 131 mmol/L (137-145)
[2024-03-18 17:25] LABS: Troponin I 0.049 ng/mL (0.000-0.034)
[2024-03-18] MEDS: MAGNESIUM SULF 2 GM/WATER 50ML 2 GM/50 ML BAG IVPB (18:31)
[2024-03-18] MEDS: METOPROLOL TARTRATE 25 MG TABLET PO (18:31)
[2024-03-18 18:34] LABS: Pneumococcal Antigen Urine NOT DETECTED
[2024-03-18 19:14] LABS: NT Pro B Type Natriuretic Pept 4720 pg/mL (19.9-100)
[2024-03-18] MEDS: MELATONIN 5 MG TABLET PO (20:29)
[2024-03-18] MEDS: SIMVASTATIN 10 MG TABLET PO (20:29)
[2024-03-18] MEDS: POTASSIUM CHLORIDE 10 MEQ ER TABLET PO (20:29)
[2024-03-18 20:45] LABS: Troponin I 0.052 ng/mL (0.000-0.034)
[2024-03-18 23:14] LABS: Troponin I 0.055 ng/mL (0.000-0.034)
[2024-03-19] VITALS (11 sets, daily range): BP systolic 99–108; BP diastolic 51–61; PULSE 86–95; RESP 18–20; TEMP 36.6–36.8; O2SAT 92–94
[2024-03-19] MEDS: HYDROcodone/acetaminophen (*CRX) 5-325 MG TABLET 1 TAB PO ×2 (01:20→15:58)
[2024-03-19] MEDS: METOPROLOL TARTRATE 25 MG TABLET PO ×4 (01:22→17:14)
[2024-03-19 07:56] LABS: INR 3.5; Prothrombin Time 35.7 Seconds (11.1-14.7)
--- NOTE | 2024-03-19 08:10 | PM.PNCARD ---
Progress Note: A&P Assessment and Plan (1) Systolic dysfunction: Code(s): I51.9 - Heart disease, unspecified Status: Acute Assessment and Plan: Moderate with EF 35-40% and was 45%. Euvolemic on Lasix. She was scheduled to have outpatient Lexiscan myoview on 03/21/24 and if she is still in hospital then we can order for it while she is here on Thursday. (2) Mechanical heart valve present: Code(s): Z95.2 - Presence of prosthetic heart valve Status: Acute Assessment and Plan: On Warfarin normally to keep INR 2.5-3.0 and managed by her PCP. On Lovenox currently while in hospital. Eventually needs to be transitioned back to Warfarin upon discharge. (3) Atrial fibrillation: Code(s): I48.91 - Unspecified atrial fibrillation Status: Acute Assessment and Plan: Controlled now, but rate fluctuates here up to 160's bpm which could be due to volume depletion/anemia/pain. Normally she is not very fast on low dose Metoprolol 12.5 mg daily. Normally on Warfarin as per treatment for mechanical AVR. On Metoprolol 25 mg every 6 hours. Change Metoprolol 25 mg BID. (4) Hyperlipidemia: Qualifiers: Hyperlipidemia type: mixed hyperlipidemia Qualified Code(s): E78.2 - Mixed hyperlipidemia Code(s): E78.5 - Hyperlipidemia, unspecified Status: Acute Assessment and Plan: On Simvastatin. (5) HTN (hypertension): Qualifiers: Hypertension type: primary hypertension Qualified Code(s): I10 - Essential (primary) hypertension Code(s): I10 - Essential (primary) hypertension Status: Acute Assessment and Plan: Stable. (6) LBBB (left bundle branch block): Code(s): I44.7 - Left bundle-branch block, unspecified Status: Acute (7) Elevated troponin: Code(s): R77.8 - Other specified abnormalities of plasma proteins Status: Inactive Assessment and Plan: Flat and slightly elevated at .055. Could be related to demand ischemia from intermittent rapid HR/CKD/anemia. Subjective Date/time seen: 03/19/24 08:10 Interval history: Reports neck pain with movement and left knee pain. Denies chest pain and states breathing is better. Exam Const: General: cooperative, healthy appearing and comfortable Resp: Auscultation: clear to auscultation bilaterally, no crackles, no rales, no rhonchi and no wheezes Cardio: Rate: regular rate Rhythm: abnormal rhythm Heart sounds: Clicking heart sound present (S2) and no murmurs Peripheral pulses: dorsalis pedis present GI: GI Palp: No abdominal tenderness and Yes Soft to palpation Neuro: General: oriented to person, oriented to place and oriented to time Extrem: Right lower extremity: no edema Left lower extremity: no edema Objective Data Vital Signs Vital Signs: Vital Signs - 24 hr 03/18/24 10:23 03/18/24 12:10 03/18/24 12:14 Temperature Pulse Rate 128 H Respiratory Rate Blood Pressure 121/88 Pulse Oximetry Oxygen Delivery Room Air Fraction of Inspired Oxygen 03/18/24 14:00 03/18/24 16:00 03/18/24 18:31 Temperature 98.4 F Pulse Rate 59 L 118 H 124 H Respiratory Rate 18 Blood Pressure 127/58 L Pulse Oximetry 94 Oxygen Delivery Fraction of Inspired Oxygen 03/18/24 20:00 03/18/24 20:00 03/18/24 22:00 Temperature 99.2 F Pulse Rate 124 H 85 85 Respiratory Rate 18 18 Blood Pressure 109/52 L Pulse Oximetry 94 91 Oxygen Delivery Room Air Fraction of Inspired Oxygen 8 03/19/24 00:00 03/19/24 04:00 03/19/24 06:00 Temperature 97.8 F Pulse Rate 92 86 87 Respiratory Rate 18 Blood Pressure 108/58 L Pulse Oximetry 94 Oxygen Delivery Fraction of Inspired Oxygen Intake/Output Intake/Output: Intake & Output 03/16/24 03/17/24 03/18/24 03/19/24 23:59 23:59 23:59 23:59 Intake Total 995 1370 1048 200 Output Total 450 400 Balance 995 1370 598 -200 Meds/Results Medications: Active Medications Generic Name Dose Route Start Last Admin Trade Name Freq PRN Reason Stop Dose Admin Acetaminophen 1,000 mg 03/10/24 10:04 03/11/24 00:10 Acetaminophen 500 Mg Tablet PO 1,000 mg Q6H PRN Administration Mild Pain (1-3) or Fever Hydrocodone Bitart/Acetaminophen 1 tab 03/08/24 17:21 03/19/24 01:20 Hydrocodone/Acetaminophen (*Crx) 5-325 Mg Tablet PO 1 tab Q6H PRN Administration Pain Rated 4-6 Albuterol 2 puff 03/08/24 17:21 Albuterol Sulfate (*Sp) Aerosol 1 Puff INHALATION QID PRN Shortness Of Breath Alprazolam 0.25 mg 03/08/24 17:21 03/17/24 21:30 Alprazolam (*Crx) 0.25 Mg Tablet PO 0.25 mg HS PRN Administration Anxiety Benzocaine 1 lozenge 03/10/24 18:17 03/16/24 08:17 Benzocaine/Menthol (*Bkc) 18 Ea Lozenge PO 1 lozenge PRN PRN Administration Sore Throat Cyanocobalamin 1,000 mcg 03/09/24 09:00 03/18/24 10:23 Cyanocobalamin 1,000 Mcg Tablet PO 1,000 mcg DAILY IAN Administration Diclofenac Sodium 1 applic 03/10/24 10:04 03/17/24 18:34 Diclofenac Sodium 1% 100 Gm Gel (*Bkc) TOPICAL 1 applic QID PRN Administration joint pain Enoxaparin Sodium 80 mg 03/13/24 21:50 03/18/24 20:29 Enoxaparin 80 Mg/0.8 Ml Syringe SUB-Q 80 mg Q12HR IAN Administration Furosemide 20 mg 03/16/24 09:00 03/18/24 10:22 Furosemide 20 Mg Tablet PO 20 mg DAILY IAN Administration Gabapentin 300 mg 03/08/24 21:00 03/18/24 20:29 Gabapentin 300 Mg Capsule PO 300 mg Q12HR IAN Administration Guaifenesin 1,200 mg 03/13/24 12:50 03/18/24 20:29 Guaifenesin 12 Hr 600 Mg Tabcr PO 1,200 mg Q12HR IAN Administration Guaifenesin/Dextromethorphan 10 ml 03/11/24 23:14 03/14/24 07:53 Guaifenesin/Dextromethorphan 10 Ml Udc PO 10 ml Q4H PRN Administration Cough Hydromorphone HCl 0.2 mg 03/10/24 12:48 Hydromorphone Hcl Inj (*Crx) 1 Mg/Ml Syr IV PUSH Q6H PRN Pain Rated 7-10 Melatonin 5 mg 03/15/24 21:00 03/18/24 20:29 Melatonin 5 Mg Tablet PO 5 mg HS IAN Administration Methimazole 5 mg 03/09/24 09:00 03/18/24 10:23 Methimazole 5 Mg Tab PO 5 mg DAILY IAN Administration Metoprolol Tartrate 25 mg 03/18/24 18:00 03/19/24 05:20 Metoprolol Tartrate 25 Mg Tablet PO 25 mg Q6HR IAN Administration Cinacalcet 15 Mg 0 each 03/10/24 09:00 03/18/24 10:24 Tablet PO 04/09/24 08:59 1 each DAILY IAN Administration Pantoprazole Sodium 40 mg 03/09/24 09:00 03/18/24 10:22 Pantoprazole 40 Mg Tablet PO 40 mg QAM IAN Administration Potassium Chloride 10 meq 03/08/24 21:00 03/18/24 20:29 Potassium Chloride 10 Meq Er Tablet PO 10 meq HS IAN Administration Simvastatin 10 mg 03/08/24 21:00 03/18/24 20:29 Simvastatin 10 Mg Tablet PO 10 mg HS IAN Administration Venlafaxine HCl 150 mg 03/09/24 09:00 03/18/24 10:23 Venlafaxine Hcl Xr 75 Mg Cap.Er.24h PO 150 mg DAILY IAN Administration Vitamin D 1,000 units 03/09/24 09:00 03/18/24 10:22 Cholecalciferol 1,000 Units Tablet PO 1,000 units DAILY IAN Administration Warfarin Sodium 9 mg 03/11/24 17:00 03/13/24 17:40 Warfarin (*Pbkc) 3 Mg Tablet PO 9 mg DAILY@1700 IAN Administration Radiology Results: ITS Impressions Chest X-Ray 03/18/24 16:45 IMPRESSION: No acute cardiopulmonary process. Labs Labs: Laboratory Results - last 24 hr 03/13/24 03/18/24 03/18/24 11:38 16:31 19:38 WBC 9.4 RBC 3.36 L Hgb 10.9 L Hct 34.6 L MCV 103.0 H MCH 32.4 MCHC 31.5 L RDW 13.2 Plt Count 188 MPV 13.8 H Immature Gran % (Auto) 0.7 H Neut % (Auto) 71.7 Lymph % (Auto) 11.1 L Norton % (Auto) 15.6 H Eos % (Auto) 0.5 Baso % (Auto) 0.4 Lymph # (Auto) 1.05 Norton # (Auto) 1.5 H Eos # (Auto) 0.1 Baso # (Auto) 0.0 Abs Immat Gran (auto) 0.07 H Absolute Neuts (auto) 6.7 Absolute Nucleated RBC 0.030 H Nucleated RBC % 0.3 H % Immature Plt Fraction 16.3 H PT INR Sodium 131 L Potassium 3.9 Chloride 94 L Carbon Dioxide 33 H Anion Gap 4 BUN 23 H Creatinine 1.17 H Estim Creat Clear Calc 37 Estimated GFR 45 L Glucose 128 H Calcium 9.7 Magnesium 1.6 Total Bilirubin 0.7 AST 47 H ALT 28 Alkaline Phosphatase 81 Troponin I 0.049 H* 0.052 H* NT-Pro-B Natriuret Pep 4720 H Total Protein 7.0 Albumin 3.3 L Urine Pneumococcal Ag Not detected 03/18/24 03/19/24 22:23 06:59 WBC RBC Hgb Hct MCV MCH MCHC RDW Plt Count MPV Immature Gran % (Auto) Neut % (Auto) Lymph % (Auto) Norton % (Auto) Eos % (Auto) Baso % (Auto) Lymph # (Auto) Norton # (Auto) Eos # (Auto) Baso # (Auto) Abs Immat Gran (auto) Absolute Neuts (auto) Absolute Nucleated RBC Nucleated RBC % % Immature Plt Fraction PT 35.7 H INR 3.5 Sodium Potassium Chloride Carbon Dioxide Anion Gap BUN Creatinine Estim Creat Clear Calc Estimated GFR Glucose Calcium Magnesium Total Bilirubin AST ALT Alkaline Phosphatase Troponin I 0.055 H* NT-Pro-B Natriuret Pep Total Protein Albumin Urine Pneumococcal Ag
[2024-03-19 08:23] LABS: Basophils Percent Auto 0.4 % (0.2-1.2); Eosinophils Absolute Auto 0.2 K/mm3 (0-0.3); Eosinophils Percent Auto 1.9 % (0-4.4); Immature Granulocyte Absolute 0.07 K/mm3 (0.00-0.031); Immature Granulocyte Percent A 0.9 % (0-0.5); Immature Platelet Fraction Pct 14.9 % (0.9-11.2); Lymphocytes Absolute Auto 1.38 K/mm3 (0.9-3.2); Lymphocytes Percent Auto 17.4 % (18.3-44.2); Mean Corpuscular HGB Conc 31.3 g/dl (32-36); Mean Corpuscular Hemoglobin 32.5 pg (26-34); Mean Corpuscular Volume 103.9 fl (80-100); Mean Platelet Volume 13.8 fl (7.4-10.4); Monocytes Absolute Auto 1.3 K/mm3 (0.1-0.6); Monocytes Percent Auto 16.6 % (2.6-8.5); Neutrophils Percent Auto 62.8 % (45.5-73.1); Nucleated Red Blood Cells Perc 0.5 % (0.0-0.2); Platelet Count Result 192 k/mm3 (150-375); Red Blood Count 3.08 M/mm3 (4.2-5.4); Red Cell Distribution Width 13.3 % (11.5-14.5)
[2024-03-19] MEDS: ENOXAPARIN 80 MG/0.8 ML SYRINGE SUB-Q ×2 (08:54→20:45)
[2024-03-19] MEDS: CHOLECALCIFEROL 1,000 UNITS TABLET 1000 UNITS PO (08:54)
[2024-03-19] MEDS: methiMAzole 5 MG TAB PO (08:54)
[2024-03-19] MEDS: PANTOPRAZOLE 40 MG TABLET PO (08:54)
[2024-03-19] MEDS: CYANOCOBALAMIN 1,000 MCG TABLET 1000 MCG PO (08:55)
[2024-03-19] MEDS: VENLAFAXINE HCL XR 75 MG CAP.ER.24H 150 MG PO (08:55)
[2024-03-19] MEDS: guaiFENesin 12 HR 600 MG TABCR 1200 MG PO ×2 (08:55→20:45)
[2024-03-19] MEDS: GABAPENTIN 300 MG CAPSULE PO ×2 (08:55→20:46)
[2024-03-19] MEDS: ACETAMINOPHEN 500 MG TABLET 1000 MG PO (09:01)
[2024-03-19 09:06] LABS: Alanine Aminotransferase 27 U/L (6-35); Albumin Level 2.9 g/dL (3.5-5.1); Alkaline Phosphatase 78 U/L (38-126); Anion Gap 2 mmol/L (4-12); Aspartate Amino Transferase 42 U/L (14-36); Bilirubin,Total 0.6 mg/dL (0.2-1.3); Blood Urea Nitrogen 22 mg/dL (7-17); Calcium 9.6 mg/dL (8.4-10.2); Carbon Dioxide 35 mmol/L (22-30); Chloride 96 mmol/L (98-107); Estimated CRCL calculation 34 ml/min; Estimated Glomerular Filt Rate 41; Glucose 86 mg/dL (65-110); Potassium 3.8 mmol/L (3.4-5.0); Sodium 133 mmol/L (137-145)
[2024-03-19 09:12] LABS: NT Pro B Type Natriuretic Pept 6620 pg/mL (19.9-100)
[2024-03-19] MEDS: CINACALCET PO (10:08)
--- NOTE | 2024-03-19 13:57 | P.PNIM_ITS ---
Progress Note: A&P Assessment and Plan (1) Mechanical heart valve present: Code(s): Z95.2 - Presence of prosthetic heart valve Status: Acute Assessment and Plan: Audible mechanical heart valve. INR subtherapeutic for several days, 1.5, 1.4, 1 today. Next of Kin, PCP manages INR and warfarin doses for her. Next of Kin, Anshul coordinates with the office. The last 2 weeks before admission she was taking 6 mg thursday-, 5mg thursday, sat, sun. Generally has INR checks ever 2 weeks Goal INR 2.5-3.5 with her mechanical valve. Izzy reports 9mg daily is a higher dose than she has needed previously --Started a heparin drip with a bolus for subtherapeutic INR --Follow CBC since trending down but may be dilutional. Stable overnight --Warfarin 8mg<9mg daily --Daily INR, closer to goal --Coordinate INR checks & follow up plan with PCP's office, Dr. Sanjeev Rosenberg 03/07 1.5 03/08 Warfarin 6mg 03/09 1.4 Warfarin 6mg 03/10 1 Warfarin 8mg 03/11 1.7 Warfarin 9mg 03/12 2.1 & 2.2 Warfarin 9mg (lab said it was likely run twice for a precision check) 03/14: * 3.9 - Will hold tonight's dose. * Continue to trend daily INR's * Therapeutically dosed Lovenox is discontinued at this time as pt has been receiving it as a bridge. 03/15 * INR 4.1 * Continue to hold Warfarin * Continue to trend daily INR * Reports passing a small amount of bright red blood today after bowel movement * Continue to monitor. * Patient on Augmentin which can make therapeutic trend challenging 03/16 * INR 3.9 * Continue to hold Warfarin 03/17 * INR 3.3 * Continue to hold Warfarin 03/18 * INR 3.4 * Continue to hold Warfarin for now 03/19 * INR 3.5 * Continue to hold warfarin (2) Palpitations: Code(s): R00.2 - Palpitations Status: Acute Assessment and Plan: - Likely due to PAF with RVR. - Better after hydration and resuming home meds. 03/14/24 * Rate now controlled significantly better. * Continue Telemetry. * Continue to monitor. 03/15/24 * Rate controlled in the 90's * Discontinue telemetry * Hold Warfarin for supratherapeutic INR 03/16 * Continue to hold Warfarin (3) Acute kidney injury: Code(s): N17.9 - Acute kidney failure, unspecified Status: Acute Assessment and Plan: Ddx pre-renal vs poor PO intake vs meds vs other. s/p 500 bolus with tachycardia --Resumed lasix --Creatinine stable 03/14/24: * Continue Lasix as ordered * Creatinine today 1.2, at baseline. * Continue to trend and monitor. 03/15/23: * Creatinine 1.16 currently at baseline 03/16 * Creatinine 1.33 03/17 * Creatinine 1.41 03/18 * stable (4) HTN (hypertension): Qualifiers: Hypertension type: primary hypertension Qualified Code(s): I10 - Essential (primary) hypertension Code(s): I10 - Essential (primary) hypertension Status: Acute Assessment and Plan: - Appears well controlled. - Continue metoprolol, changed from XL to IR for titration - Follow VS 03/14/24: * Continuing to trend and monitor. Stable 03/15/24: * Blood pressures ranging 125/54-150/68 * Continue Metoprolol (5) Hyperlipidemia: Qualifiers: Hyperlipidemia type: mixed hyperlipidemia Qualified Code(s): E78.2 - Mixed hyperlipidemia Code(s): E78.5 - Hyperlipidemia, unspecified Status: Acute Assessment and Plan: * continue simvastatin (6) Shortness of breath: Code(s): R06.02 - Shortness of breath Status: Acute Assessment and Plan: Mildly tachypneic. Not obviously overloaded on exam, likely 2/2 pneumonia --Started heparin drip, if not resolved consider a CT r/o PE, but is on warfarin chronically for mechanical heart valve --Treatment of pneumonia and heart failure, rate control afib --PEP therapy for airway clearance 03/14/24: * Continue Unasyn for underlying cause of PNA. * Wean oxygen for sats >90%. Nursing order placed. * Continue to trend. 03/15/23: * Will change to Augmentin today * Currently on 2L NC * Continue to wean for a saturation greater than 90%. 03/16 * Continue to wean O2 * Currently on 2L NC * lasix 40 mg IVP given today 03/17 * Currently on room air * Will add home dose of 20 mg Lasix oral (7) Anemia: Code(s): D64.9 - Anemia, unspecified Status: Acute Assessment and Plan: Blood count trending down since admission but may be dilutional 14.2>11.1 Iron panel showing iron deficiency anemia, Total Iron and Tsat low. B12 636. LDH 245 --iron sucrose 300mg x3 doses --Follow CBC --If downtrending would need GI consult on chronic anticoagulation 03/14/24: * Hgb further declined today to 10.5. * Small drop, continue to monitor. * Pt just finished her third dose of Venofer. * Occult blood ordered from stool. * Consider GI consult if further declination as she is on chronic anticoagulation. * Pt's INR today is 3.9. Her dose of Coumadin for tonight is held and will need restarted tomorrow if applicable. In addition, the pt's Therapeutically dosed bridge Lovenox is discontinued today. * Monitor for any s/s of acute bleeding. 03/15/23: * Hgb 10.3 today * Patient had 3 doses of Venofer * collect occult blood stool 03/16 * No real change, Hgb 10.9 (8) Heart failure, diastolic, acute on chronic: Code(s): I50.33 - Acute on chronic diastolic (congestive) heart failure Status: Acute Assessment and Plan: 08/24/23 Echo: TDS. EF 45%, biatrial enlargement, suspect (YADIRA 1.4 cm2), mod MR, mild-mod TR. s/p 500ml fluid bolus, now back on IV lasix NT-proBNP 10,000 Resume lasix, 20mg IV daily & increase as able TTE 03/14/24: * Chronic in nature. * Appears euvolemic. * Continue Lasix 03/15/23: * Will increase to 40 mg IVP lasix today * Course bilaterally with peripheral swelling 03/16 * continue Lasix 03/17 * Transition to oral Lasix * Appears euvolemic 03/18 * Flipped into A fib with RVR today * Lungs sounding course * Will repeat CXR now * Last Echo on 03/11/24 shown LVEF of 3-40% 03/19 * Back in NSR * Continue telemetry monitoring * CXR was negative * proBNP elevated, however lung sounds are clear (9) Pneumonia: Code(s): J18.9 - Pneumonia, unspecified organism Status: Acute Assessment and Plan: Hospital associated pneumonia. Chest x-ray showed possible RLL pneumonia. Has crackles on exam. Intermittent fevers. Resolved today after starting unasyn. On room air --Started Unasyn, change to augmentin if improving --If new oxygen requirements, broaden to Cefepime/Vanc/Flagyl --Also has a sore throat, checking strep culture. Chlorseptic drops & tylenol prn --Urine for strep pneumo --Follow up chest x-ray if new oxygen requirement or not resolving --Staph screen. Can broaden to Cefepime/Vanc if worsening --Sputum culture if able to collect. Would only use to guide treatment if not improving with current antibiotics 03/14/24: * Continue Unasyn. Could likely switch to oral Augmentin tomorrow. 03/15/24: * Unasyn changed to Augmentin 03/18/24 * Augmentin finished today (10) Atrial fibrillation with RVR: Code(s): I48.91 - Unspecified atrial fibrillation Status: Acute Assessment and Plan: Home metoprolol ER 25mg daily Resting HR 70s-90s, 100-130's with activity on 03/10. Rate controlled with inc reased dose of metoprolol and a 500ml fluid bolus - Change Metoprolol ER 25mg daily to metoprolol tartrate 12.5mg q6 and titrate. 5mg IV metoprolol --INR goal as noted for mechanical heart valve. INR can be affected by antibiotics --Cardiology consulted, appreciate recommendations 03/15/24: * Rate controlled in the 90's * Continue Metoprolol * D/C continuous tele * Hold Warfarin due to supratherapeutic INR 03/17 * Continue to hold Warfarin 03/18 * Went back into Afib RVR today * Continue to hold Warfarin due to supratherapeutic INR * Will increase Metoprolol to 25 mg q6h for better rate control * Continue tele * Cardiology reconsulted * repeating CXR 03/19 * In NSR now, continue Metoprolol 25 mg q6h * Continue tele for now * Cardiology following * CXR negative Time Spent With Patient Time with patient: Greater than 35 minutes Subjective Date/time seen: 03/19/24 13:57 Interval history: Interval history: This is a 78 year old female who presented to the hospital on 03/08/24 with complaints of chest discomfort and palpitations. she was found to be in A fib RVR and was given Metoprolol in the ER. She was continued on Warfarin and Metoprolol. She was noted to have an OLIVE as well and was given IVF. Her heart rate and kidney function improved with Metoprolol and IVF. Subjective: Still reporting neck pain. She denies any other issues. Labs reviewed. INR still supratherapeutic at 3.5. Review of Systems Review of Systems: All systems reviewed & are unremarkable except as noted in HPI and below Constitutional: Constitutional: Reports as per HPI and Reports no additional constitutional complaints Eyes: Eyes: Reports as per HPI and Reports no additional eye complaints ENT: Reports system reviewed and no additional complaints, except as documented and Reports as per HPI Cardiovascular: Cardiovascular: Reports as per HPI and Reports no additional cardiovascular complaints Respiratory: Respiratory: Reports as per HPI and Reports no additional respiratory complaints Gastrointestinal: Gastrointestinal: Reports as per HPI and Reports no additional gastrointestinal complaints Genitourinary: Genitourinary: Reports no additional female genitourinary complaints and Reports as per HPI Musculoskeletal: Musculoskeletal: Reports no additional musculoskeletal complaints and Reports as per HPI Integumentary/Breasts: Skin/Breast: Reports system reviewed and no additional complaints, except as docu and Reports as per HPI Neurologic: Reports system reviewed and no additional complaints, except as documented and Reports as per HPI Psychiatric: Psychiatric: Reports no additional psychiatric complaints and Reports as per HPI Exam Narrative: General: In no acute distress, well nourished Cardiac: Normal S1 and S2. NSR, No murmur, gallops or friction rubs, peripheral pulses intact. Respiratory: Lungs clear bilaterally , no adventitious lung sounds, currently on room air, raspy cough Gastrointestinal: soft, non-distended, non-tender, normoactive bowel sounds. : voiding without difficulty. Neuro: Alert and oriented x4 Objective Data Vital Signs Vital Signs: Vital Signs - 24 hr 03/18/24 14:00 03/18/24 16:00 03/18/24 18:31 Temperature 98.4 F Pulse Rate 59 L 118 H 124 H Respiratory Rate 18 Blood Pressure 127/58 L Pulse Oximetry 94 Oxygen Delivery Fraction of Inspired Oxygen 03/18/24 20:00 03/18/24 20:00 03/18/24 22:00 Temperature 99.2 F Pulse Rate 124 H 85 85 Respiratory Rate 18 18 Blood Pressure 109/52 L Pulse Oximetry 94 91 Oxygen Delivery Room Air Fraction of Inspired Oxygen 8 03/19/24 00:00 03/19/24 04:00 03/19/24 06:00 Temperature 97.8 F Pulse Rate 92 86 87 Respiratory Rate 18 Blood Pressure 108/58 L Pulse Oximetry 94 Oxygen Delivery Fraction of Inspired Oxygen 03/19/24 08:00 03/19/24 08:54 03/19/24 12:00 Temperature Pulse Rate 88 87 87 Respiratory Rate Blood Pressure Pulse Oximetry Oxygen Delivery Fraction of Inspired Oxygen Intake/Output Intake/Output: Intake & Output 03/16/24 03/17/24 03/18/24 03/19/24 23:59 23:59 23:59 23:59 Intake Total 995 1370 1048 200 Output Total 450 400 Balance 995 1370 598 -200 Meds/Results Medications: Active Medications Generic Name Dose Route Start Last Admin Trade Name Freq PRN Reason Stop Dose Admin Acetaminophen 1,000 mg 03/10/24 10:04 03/19/24 09:01 Acetaminophen 500 Mg Tablet PO 1,000 mg Q6H PRN Administration Mild Pain (1-3) or Fever Hydrocodone Bitart/Acetaminophen 1 tab 03/08/24 17:21 03/19/24 01:20 Hydrocodone/Acetaminophen (*Crx) 5-325 Mg Tablet PO 1 tab Q6H PRN Administration Pain Rated 4-6 Albuterol 2 puff 03/08/24 17:21 Albuterol Sulfate (*Sp) Aerosol 1 Puff INHALATION QID PRN Shortness Of Breath Alprazolam 0.25 mg 03/08/24 17:21 03/17/24 21:30 Alprazolam (*Crx) 0.25 Mg Tablet PO 0.25 mg HS PRN Administration Anxiety Benzocaine 1 lozenge 03/10/24 18:17 03/16/24 08:17 Benzocaine/Menthol (*Bkc) 18 Ea Lozenge PO 1 lozenge PRN PRN Administration Sore Throat Cyanocobalamin 1,000 mcg 03/09/24 09:00 03/19/24 08:55 Cyanocobalamin 1,000 Mcg Tablet PO 1,000 mcg DAILY IAN Administration Diclofenac Sodium 1 applic 03/10/24 10:04 03/17/24 18:34 Diclofenac Sodium 1% 100 Gm Gel (*Bkc) TOPICAL 1 applic QID PRN Administration joint pain Enoxaparin Sodium 80 mg 03/13/24 21:50 03/19/24 08:54 Enoxaparin 80 Mg/0.8 Ml Syringe SUB-Q 80 mg Q12HR IAN Administration Furosemide 20 mg 03/16/24 09:00 03/18/24 10:22 Furosemide 20 Mg Tablet PO 20 mg DAILY IAN Administration Gabapentin 300 mg 03/08/24 21:00 03/19/24 08:55 Gabapentin 300 Mg Capsule PO 300 mg Q12HR IAN Administration Guaifenesin 1,200 mg 03/13/24 12:50 03/19/24 08:55 Guaifenesin 12 Hr 600 Mg Tabcr PO 1,200 mg Q12HR IAN Administration Guaifenesin/Dextromethorphan 10 ml 03/11/24 23:14 03/14/24 07:53 Guaifenesin/Dextromethorphan 10 Ml Udc PO 10 ml Q4H PRN Administration Cough Hydromorphone HCl 0.2 mg 03/10/24 12:48 Hydromorphone Hcl Inj (*Crx) 1 Mg/Ml Syr IV PUSH Q6H PRN Pain Rated 7-10 Melatonin 5 mg 03/15/24 21:00 03/18/24 20:29 Melatonin 5 Mg Tablet PO 5 mg HS IAN Administration Methimazole 5 mg 03/09/24 09:00 03/19/24 08:54 Methimazole 5 Mg Tab PO 5 mg DAILY IAN Administration Metoprolol Tartrate 25 mg 03/19/24 09:00 03/19/24 08:54 Metoprolol Tartrate 25 Mg Tablet PO 25 mg BID IAN Administration Miscellaneous Information 1 each 03/19/24 00:01 Hydromorphone Needs To Be Renewed Or It Will Automatically Discontinue. XX 04/18/24 00:00 CLARIFY IAN Cinacalcet 15 Mg 0 each 03/10/24 09:00 03/19/24 10:08 Tablet PO 04/09/24 08:59 1 each DAILY IAN Administration Pantoprazole Sodium 40 mg 03/09/24 09:00 03/19/24 08:54 Pantoprazole 40 Mg Tablet PO 40 mg QAM IAN Administration Potassium Chloride 10 meq 03/08/24 21:00 03/18/24 20:29 Potassium Chloride 10 Meq Er Tablet PO 10 meq HS IAN Administration Simvastatin 10 mg 03/08/24 21:00 03/18/24 20:29 Simvastatin 10 Mg Tablet PO 10 mg HS IAN Administration Venlafaxine HCl 150 mg 03/09/24 09:00 03/19/24 08:55 Venlafaxine Hcl Xr 75 Mg Cap.Er.24h PO 150 mg DAILY IAN Administration Vitamin D 1,000 units 03/09/24 09:00 03/19/24 08:54 Cholecalciferol 1,000 Units Tablet PO 1,000 units DAILY IAN Administration Warfarin Sodium 9 mg 03/11/24 17:00 03/13/24 17:40 Warfarin (*Pbkc) 3 Mg Tablet PO 9 mg DAILY@1700 IAN Administration Radiology Results: ITS Impressions Chest X-Ray 03/18/24 16:45 IMPRESSION: No acute cardiopulmonary process. Labs Labs: Laboratory Results - last 24 hr 03/13/24 03/18/24 03/18/24 11:38 16:31 19:38 WBC 9.4 RBC 3.36 L Hgb 10.9 L Hct 34.6 L MCV 103.0 H MCH 32.4 MCHC 31.5 L RDW 13.2 Plt Count 188 MPV 13.8 H Immature Gran % (Auto) 0.7 H Neut % (Auto) 71.7 Lymph % (Auto) 11.1 L Mayes % (Auto) 15.6 H Eos % (Auto) 0.5 Baso % (Auto) 0.4 Lymph # (Auto) 1.05 Mayes # (Auto) 1.5 H Eos # (Auto) 0.1 Baso # (Auto) 0.0 Abs Immat Gran (auto) 0.07 H Absolute Neuts (auto) 6.7 Absolute Nucleated RBC 0.030 H Nucleated RBC % 0.3 H % Immature Plt Fraction 16.3 H PT INR Sodium 131 L Potassium 3.9 Chloride 94 L Carbon Dioxide 33 H Anion Gap 4 BUN 23 H Creatinine 1.17 H Estim Creat Clear Calc 37 Estimated GFR 45 L Glucose 128 H Calcium 9.7 Magnesium 1.6 Total Bilirubin 0.7 AST 47 H ALT 28 Alkaline Phosphatase 81 Troponin I 0.049 H* 0.052 H* NT-Pro-B Natriuret Pep 4720 H Total Protein 7.0 Albumin 3.3 L Urine Pneumococcal Ag Not detected 03/18/24 03/19/24 22:23 06:59 WBC 8.0 RBC 3.08 L Hgb 10.0 L Hct 32.0 L MCV 103.9 H MCH 32.5 MCHC 31.3 L RDW 13.3 Plt Count 192 MPV 13.8 H Immature Gran % (Auto) 0.9 H Neut % (Auto) 62.8 Lymph % (Auto) 17.4 L Mayes % (Auto) 16.6 H Eos % (Auto) 1.9 Baso % (Auto) 0.4 Lymph # (Auto) 1.38 Mayes # (Auto) 1.3 H Eos # (Auto) 0.2 Baso # (Auto) 0.0 Abs Immat Gran (auto) 0.07 H Absolute Neuts (auto) 5.0 Absolute Nucleated RBC 0.040 H Nucleated RBC % 0.5 H % Immature Plt Fraction 14.9 H PT 35.7 H INR 3.5 Sodium 133 L Potassium 3.8 Chloride 96 L Carbon Dioxide 35 H Anion Gap 2 L BUN 22 H Creatinine 1.27 H Estim Creat Clear Calc 34 Estimated GFR 41 L Glucose 86 Calcium 9.6 Magnesium Total Bilirubin 0.6 AST 42 H ALT 27 Alkaline Phosphatase 78 Troponin I 0.055 H* NT-Pro-B Natriuret Pep 6620 H Total Protein 6.0 L Albumin 2.9 L Urine Pneumococcal Ag Quality VTE Prophylaxis VTE prophylaxis: pharmacologic ordered
--- NOTE | 2024-03-19 14:02 | PC.NURSE ---
Patient resting in bed and needing to be readjusted. PCT and I situated her in bed to patients liking. Breakfast tray addressed and patient helped with certain items. Patient very comfortable and enjoying breakfast.
[2024-03-19] MEDS: HYDROmorphone HCL INJ (*CRX) 1 MG/ML SYR 0.2 MG IV PUSH (18:31)
[2024-03-19] MEDS: DICLOFENAC SODIUM 1% 100 GM GEL (*BKC) 1 APPLIC TOPICAL ×2 (18:33→20:54)
[2024-03-19] MEDS: POTASSIUM CHLORIDE 10 MEQ ER TABLET PO (20:45)
[2024-03-19] MEDS: MELATONIN 5 MG TABLET PO (20:45)
[2024-03-19] MEDS: SIMVASTATIN 10 MG TABLET PO (20:45)
[2024-03-19] MEDS: CYCLOBENZAPRINE HCL 5 MG TABLET PO (20:53)
[2024-03-19 21:36] LABS: Glucose Point of Care 146 mg/dl (65-105)
[2024-03-20] VITALS (14 sets, daily range): BP systolic 110–141; BP diastolic 62–80; PULSE 89–162; RESP 18–20; TEMP 36–36.9; O2SAT 93–95
[2024-03-20] MEDS: HYDROcodone/acetaminophen (*CRX) 5-325 MG TABLET 1 TAB PO ×3 (03:50→17:17)
[2024-03-20] MEDS: HYDROmorphone HCL INJ (*CRX) 1 MG/ML SYR 0.2 MG IV PUSH (03:50)
--- NOTE | 2024-03-20 03:55 | ECG_ITS ---
Test Date: 2024-03-20 03:59:32 Measurements Intervals [place] Rate: 135 P: 0 OH: 0 QRS: -42 QRSD: 150 T: 133 QT: 312 QTc: 469 Interpretive Statements ATRIAL FIBRILLATION WITH RAPID VENTRICULAR RESPONSE WITH ABERRANT CONDUCTION OR VENTRICULAR PREMATURE COMPLEXES LEFT AXIS DEVIATION [QRS AXIS < -30] LEFT BUNDLE BRANCH BLOCK [120+ ms QRS DURATION, 80+ ms Q/S IN V1/V2, 85+ ms R IN I/aVL/V5/V6] ABNORMAL ECG Electronically Signed On 03-20-2024 08:32:57 SINGLE NEEDLE TUFTING MACHINE OPERATOR by Dov Alonso M.D.
[2024-03-20] MEDS: MORPHINE SULFATE (*CRX) 2 MG/ML INJ 1 MG IV PUSH (04:05)
[2024-03-20] MEDS: METOPROLOL TARTRATE INJ 5 MG/5 ML VIAL IV PUSH ×2 (04:05→04:10)
[2024-03-20 04:09] LABS: Basophils Absolute Auto 0.1 K/mm3 (0.0-0.1); Basophils Percent Auto 0.6 % (0.2-1.2); Eosinophils Absolute Auto 0.1 K/mm3 (0-0.3); Eosinophils Percent Auto 1.4 % (0-4.4); Hematocrit 33.1 % (37.0-47.0); Hemoglobin 10.7 g/dL (12.0-15.0); Immature Granulocyte Absolute 0.06 K/mm3 (0.00-0.031); Immature Granulocyte Percent A 0.7 % (0-0.5); Lymphocytes Absolute Auto 1.24 K/mm3 (0.9-3.2); Lymphocytes Percent Auto 13.8 % (18.3-44.2); Mean Corpuscular HGB Conc 32.3 g/dl (32-36); Mean Corpuscular Hemoglobin 33.2 pg (26-34); Mean Corpuscular Volume 102.8 fl (80-100); Mean Platelet Volume 12.8 fl (7.4-10.4); Monocytes Absolute Auto 1.4 K/mm3 (0.1-0.6); Monocytes Percent Auto 15.3 % (2.6-8.5); Neutrophils Absolute Auto 6.1 K/mm3 (1.3-6.7); Neutrophils Percent Auto 68.2 % (45.5-73.1); Nucleated Red Blood Cells Perc 0.7 % (0.0-0.2); Platelet Count Result 226 k/mm3 (150-375); Red Blood Count 3.22 M/mm3 (4.2-5.4); Red Cell Distribution Width 13.5 % (11.5-14.5)
--- NOTE | 2024-03-20 04:16 | PM.EVENT ---
Event Note Event Note Event Note: Rapid response was called to patient's room due to heart rate in the 180s. Objective: Patient laying in bed awake and alert Subjective: Patient complaining of neck pain General: Patient laying in bed, no acute distress. HEENT: Head atraumatic normocephalic PERRLA EOM intact neck supple no JVD Respiratory: Breath sounds Diminished throughout, crackles. Cardiovascular: Tachycardic Abdomen: Obese, large pannus. Extremities: No edema Central nervous system: Awake alert oriented x2 Skin: Intact Assessment and plan: 1. Atrial fibrillation on with rapid ventricular response and left bundle branch block: Lopressor 5 mg IV push. CBC, BMP, mag, ferrous.
[2024-03-20 04:17] LABS: Glucose Point of Care 119 mg/dl (65-105)
[2024-03-20 04:20] LABS: INR 3.2; Prothrombin Time 33.2 Seconds (11.1-14.7)
[2024-03-20 04:24] LABS: Alanine Aminotransferase 27 U/L (6-35); Albumin Level 3.2 g/dL (3.5-5.1); Alkaline Phosphatase 90 U/L (38-126); Anion Gap 1 mmol/L (4-12); Aspartate Amino Transferase 39 U/L (14-36); Bilirubin,Total 0.6 mg/dL (0.2-1.3); Blood Urea Nitrogen 21 mg/dL (7-17); Calcium 9.3 mg/dL (8.4-10.2); Carbon Dioxide 32 mmol/L (22-30); Chloride 97 mmol/L (98-107); Estimated CRCL calculation 33 ml/min; Estimated Glomerular Filt Rate 40; Glucose 117 mg/dL (65-110); Magnesium 1.8 mg/dL (1.6-2.3); Phosphorus 1.6 mg/dL (2.5-4.5); Potassium 4.1 mmol/L (3.4-5.0); Sodium 130 mmol/L (137-145)
[2024-03-20] MEDS: METOPROLOL TARTRATE 25 MG TABLET PO (04:26)
[2024-03-20] MEDS: FUROSEMIDE 20 MG TABLET PO (04:27)
[2024-03-20 04:32] LABS: NT Pro B Type Natriuretic Pept 5800 pg/mL (19.9-100)
[2024-03-20 04:38] LABS: Troponin I 0.039 ng/mL (0.000-0.034)
[2024-03-20 07:52] LABS: Troponin I 0.037 ng/mL (0.000-0.034)
[2024-03-20 08:47] LABS: Glucose Point of Care 117 mg/dl (65-105)
--- NOTE | 2024-03-20 09:26 | P.PNIM_ITS ---
Progress Note: A&P Assessment and Plan (1) Mechanical heart valve present: Code(s): Z95.2 - Presence of prosthetic heart valve Status: Acute Assessment and Plan: Audible mechanical heart valve. INR subtherapeutic for several days, 1.5, 1.4, 1 today. Next of Kin, PCP manages INR and warfarin doses for her. Next of Kin, Anshul coordinates with the office. The last 2 weeks before admission she was taking 6 mg thursday-, 5mg thursday, sat, sun. Generally has INR checks ever 2 weeks Goal INR 2.5-3.5 with her mechanical valve. Izzy reports 9mg daily is a higher dose than she has needed previously --Started a heparin drip with a bolus for subtherapeutic INR --Follow CBC since trending down but may be dilutional. Stable overnight --Warfarin 8mg<9mg daily --Daily INR, closer to goal --Coordinate INR checks & follow up plan with PCP's office, Dr. Sanjeev Rosenberg 03/07 1.5 03/08 Warfarin 6mg 03/09 1.4 Warfarin 6mg 03/10 1 Warfarin 8mg 03/11 1.7 Warfarin 9mg 03/12 2.1 & 2.2 Warfarin 9mg (lab said it was likely run twice for a precision check) 03/14: * 3.9 - Will hold tonight's dose. * Continue to trend daily INR's * Therapeutically dosed Lovenox is discontinued at this time as pt has been receiving it as a bridge. 03/15 * INR 4.1 * Continue to hold Warfarin * Continue to trend daily INR * Reports passing a small amount of bright red blood today after bowel movement * Continue to monitor. * Patient on Augmentin which can make therapeutic trend challenging 03/16 * INR 3.9 * Continue to hold Warfarin 03/17 * INR 3.3 * Continue to hold Warfarin 03/18 * INR 3.4 * Continue to hold Warfarin for now 03/19 * INR 3.5 * Continue to hold warfarin 03/20 * INR 3.2 today * Continue to hold Warfarin (2) Palpitations: Code(s): R00.2 - Palpitations Status: Acute Assessment and Plan: - Likely due to PAF with RVR. - Better after hydration and resuming home meds. 03/14/24 * Rate now controlled significantly better. * Continue Telemetry. * Continue to monitor. 03/15/24 * Rate controlled in the 90's * Discontinue telemetry * Hold Warfarin for supratherapeutic INR 03/16 * Continue to hold Warfarin (3) Acute kidney injury: Code(s): N17.9 - Acute kidney failure, unspecified Status: Acute Assessment and Plan: Ddx pre-renal vs poor PO intake vs meds vs other. s/p 500 bolus with tachycardia --Resumed lasix --Creatinine stable 03/14/24: * Continue Lasix as ordered * Creatinine today 1.2, at baseline. * Continue to trend and monitor. 03/15/23: * Creatinine 1.16 currently at baseline 03/16 * Creatinine 1.33 03/17 * Creatinine 1.41 03/18 * stable, near baseline (4) HTN (hypertension): Qualifiers: Hypertension type: primary hypertension Qualified Code(s): I10 - Essential (primary) hypertension Code(s): I10 - Essential (primary) hypertension Status: Acute Assessment and Plan: - Appears well controlled. - Continue metoprolol, changed from XL to IR for titration - Follow VS 03/14/24: * Continuing to trend and monitor. Stable 03/15/24: * Blood pressures ranging 125/54-150/68 * Continue Metoprolol (5) Hyperlipidemia: Qualifiers: Hyperlipidemia type: mixed hyperlipidemia Qualified Code(s): E78.2 - Mixed hyperlipidemia Code(s): E78.5 - Hyperlipidemia, unspecified Status: Acute Assessment and Plan: * continue simvastatin (6) Shortness of breath: Code(s): R06.02 - Shortness of breath Status: Acute Assessment and Plan: Mildly tachypneic. Not obviously overloaded on exam, likely 2/2 pneumonia --Started heparin drip, if not resolved consider a CT r/o PE, but is on warfarin chronically for mechanical heart valve --Treatment of pneumonia and heart failure, rate control afib --PEP therapy for airway clearance 03/14/24: * Continue Unasyn for underlying cause of PNA. * Wean oxygen for sats >90%. Nursing order placed. * Continue to trend. 03/15/23: * Will change to Augmentin today * Currently on 2L NC * Continue to wean for a saturation greater than 90%. 03/16 * Continue to wean O2 * Currently on 2L NC * lasix 40 mg IVP given today 03/17 * Currently on room air * Will add home dose of 20 mg Lasix oral (7) Anemia: Code(s): D64.9 - Anemia, unspecified Status: Acute Assessment and Plan: Blood count trending down since admission but may be dilutional 14.2>11.1 Iron panel showing iron deficiency anemia, Total Iron and Tsat low. B12 636. LDH 245 --iron sucrose 300mg x3 doses --Follow CBC --If downtrending would need GI consult on chronic anticoagulation 03/14/24: * Hgb further declined today to 10.5. * Small drop, continue to monitor. * Pt just finished her third dose of Venofer. * Occult blood ordered from stool. * Consider GI consult if further declination as she is on chronic anticoagulation. * Pt's INR today is 3.9. Her dose of Coumadin for tonight is held and will need restarted tomorrow if applicable. In addition, the pt's Therapeutically dosed bridge Lovenox is discontinued today. * Monitor for any s/s of acute bleeding. 03/15/23: * Hgb 10.3 today * Patient had 3 doses of Venofer * collect occult blood stool 03/16 * No real change, Hgb 10.9 (8) Heart failure, diastolic, acute on chronic: Code(s): I50.33 - Acute on chronic diastolic (congestive) heart failure Status: Acute Assessment and Plan: 08/24/23 Echo: TDS. EF 45%, biatrial enlargement, suspect (YADIRA 1.4 cm2), mod MR, mild-mod TR. s/p 500ml fluid bolus, now back on IV lasix NT-proBNP 10,000 Resume lasix, 20mg IV daily & increase as able TTE 03/14/24: * Chronic in nature. * Appears euvolemic. * Continue Lasix 03/15/23: * Will increase to 40 mg IVP lasix today * Course bilaterally with peripheral swelling 03/16 * continue Lasix 03/17 * Transition to oral Lasix * Appears euvolemic 03/18 * Flipped into A fib with RVR today * Lungs sounding course * Will repeat CXR now * Last Echo on 03/11/24 shown LVEF of 3-40% 1/11 * Back in NSR * Continue telemetry monitoring * CXR was negative * proBNP elevated, however lung sounds are clear 03/20 * Flipped back into A fib RVR overnight * Repeat EKG showing new LBBB--Cardiology was notified. * Mild troponin bump--likely demand ischemia * Plan for Lexiscan stress test tomorrow to further evaluate (9) Pneumonia: Code(s): J18.9 - Pneumonia, unspecified organism Status: Acute Assessment and Plan: Hospital associated pneumonia. Chest x-ray showed possible RLL pneumonia. Has crackles on exam. Intermittent fevers. Resolved today after starting unasyn. On room air --Started Unasyn, change to augmentin if improving --If new oxygen requirements, broaden to Cefepime/Vanc/Flagyl --Also has a sore throat, checking strep culture. Chlorseptic drops & tylenol prn --Urine for strep pneumo --Follow up chest x-ray if new oxygen requirement or not resolving --Staph screen. Can broaden to Cefepime/Vanc if worsening --Sputum culture if able to collect. Would only use to guide treatment if not improving with current antibiotics 03/14/24: * Continue Unasyn. Could likely switch to oral Augmentin tomorrow. 03/15/24: * Unasyn changed to Augmentin 03/18/24 * Augmentin finished today (10) Atrial fibrillation with RVR: Code(s): I48.91 - Unspecified atrial fibrillation Status: Acute Assessment and Plan: Home metoprolol ER 25mg daily Resting HR 70s-90s, 100-130's with activity on 03/10. Rate controlled with increased dose of metoprolol and a 500ml fluid bolus - Change Metoprolol ER 25mg daily to metoprolol tartrate 12.5mg q6 and titrate. 5mg IV metoprolol --INR goal as noted for mechanical heart valve. INR can be affected by antibiotics --Cardiology consulted, appreciate recommendations 03/15/24: * Rate controlled in the 90's * Continue Metoprolol * D/C continuous tele * Hold Warfarin due to supratherapeutic INR 03/17 * Continue to hold Warfarin 03/18 * Went back into Afib RVR today * Continue to hold Warfarin due to supratherapeutic INR * Will increase Metoprolol to 25 mg q6h for better rate control * Continue tele * Cardiology reconsulted * repeating CXR 03/19 * In NSR now, continue Metoprolol 25 mg q6h * Continue tele for now * Cardiology following * CXR negative 03/20 * Flipped back into A fib RVR overnight * Repeat EKG showing new LBBB--Cardiology was notified. * Mild troponin bump--likely demand ischemia * Plan for Lexiscan stress test tomorrow to further evaluate Time Spent With Patient Time with patient: 25 - 35 minutes Subjective Date/time seen: 03/20/24 09:26 Interval history: Interval history: This is a 78 year old female who presented to the hospital on 03/08/24 with complaints of chest discomfort and palpitations. she was found to be in A fib RVR and was given Metoprolol in the ER. She was continued on Warfarin and Metoprolol. She was noted to have an OLIVE as well and was given IVF. Her heart rate and kidney function improved with Metoprolol and IVF. Subjective: Patient states she had a rough night. She flipped back into A fib RVR overnight. EKG was obtained and shown new LBBB. Labs reviewed. Review of Systems Review of Systems: All systems reviewed & are unremarkable except as noted in HPI and below Constitutional: Constitutional: Reports as per HPI and Reports no additional constitutional complaints Eyes: Eyes: Reports as per HPI and Reports no additional eye complaints ENT: Reports system reviewed and no additional complaints, except as documented and Reports as per HPI Cardiovascular: Cardiovascular: Reports as per HPI and Reports no additional cardiovascular complaints Respiratory: Respiratory: Reports as per HPI and Reports no additional respiratory complaints Gastrointestinal: Gastrointestinal: Reports as per HPI and Reports no additional gastrointestinal complaints Genitourinary: Genitourinary: Reports no additional female genitourinary complaints and Reports as per HPI Musculoskeletal: Musculoskeletal: Reports no additional musculoskeletal complaints and Reports as per HPI Integumentary/Breasts: Skin/Breast: Reports system reviewed and no additional complaints, except as docu and Reports as per HPI Neurologic: Reports system reviewed and no additional complaints, except as documented and Reports as per HPI Psychiatric: Psychiatric: Reports no additional psychiatric complaints and Reports as per HPI Exam Narrative: General: In no acute distress, well nourished Cardiac: Normal S1 and S2. NSR, No murmur, gallops or friction rubs, peripheral pulses intact. Respiratory: Lungs clear bilaterally , no adventitious lung sounds, currently on room air, raspy cough Gastrointestinal: soft, non-distended, non-tender, normoactive bowel sounds. : voiding without difficulty. Neuro: Alert and oriented x4 Objective Data Vital Signs Vital Signs: Vital Signs - 24 hr 03/19/24 12:00 03/19/24 14:00 03/19/24 16:00 Temperature 97.8 F Pulse Rate 87 87 87 Respiratory Rate 20 Blood Pressure 99/51 L Pulse Oximetry 92 Oxygen Delivery 03/19/24 17:14 03/19/24 20:00 03/19/24 22:00 Temperature 98.2 F Pulse Rate 95 95 92 Respiratory Rate 20 Blood Pressure 108/61 Pulse Oximetry 92 Oxygen Delivery 03/20/24 00:00 03/20/24 03:55 03/20/24 04:00 Temperature 96.8 F L Pulse Rate 119 H 148 H 139 H Respiratory Rate 20 Blood Pressure 141/80 H Pulse Oximetry Oxygen Delivery Room Air 03/20/24 04:05 03/20/24 04:10 03/20/24 04:26 Temperature Pulse Rate 141 H 162 H 116 H Respiratory Rate Blood Pressure Pulse Oximetry Oxygen Delivery 03/20/24 05:55 Temperature 96.8 F L Pulse Rate 89 Respiratory Rate 20 Blood Pressure 141/80 H Pulse Oximetry 95 Oxygen Delivery Intake/Output Intake/Output: Intake & Output 03/17/24 03/18/24 03/19/24 03/20/24 23:59 23:59 23:59 23:59 Intake Total 1370 1048 320 240 Output Total 450 450 250 Balance 1370 598 -130 -10 Meds/Results Medications: Active Medications Generic Name Dose Route Start Last Admin Trade Name Freq PRN Reason Stop Dose Admin Acetaminophen 1,000 mg 03/10/24 10:04 03/19/24 09:01 Acetaminophen 500 Mg Tablet PO 1,000 mg Q6H PRN Administration Mild Pain (1-3) or Fever Hydrocodone Bitart/Acetaminophen 1 tab 03/08/24 17:21 03/20/24 03:50 Hydrocodone/Acetaminophen (*Crx) 5-325 Mg Tablet PO 1 tab Q6H PRN Administration Pain Rated 4-6 Albuterol 2 puff 03/08/24 17:21 Albuterol Sulfate (*Sp) Aerosol 1 Puff INHALATION QID PRN Shortness Of Breath Alprazolam 0.25 mg 03/08/24 17:21 03/17/24 21:30 Alprazolam (*Crx) 0.25 Mg Tablet PO 0.25 mg HS PRN Administration Anxiety Benzocaine 1 lozenge 03/10/24 18:17 03/16/24 08:17 Benzocaine/Menthol (*Bkc) 18 Ea Lozenge PO 1 lozenge PRN PRN Administration Sore Throat Cyanocobalamin 1,000 mcg 03/09/24 09:00 03/19/24 08:55 Cyanocobalamin 1,000 Mcg Tablet PO 1,000 mcg DAILY IAN Administration Cyclobenzaprine HCl 5 mg 03/19/24 14:03 03/19/24 20:53 Cyclobenzaprine Hcl 5 Mg Tablet PO 5 mg Q8H PRN Administration Muscle Spasm Diclofenac Sodium 1 applic 03/10/24 10:04 03/19/24 18:33 Diclofenac Sodium 1% 100 Gm Gel (*Bkc) TOPICAL 1 applic QID PRN Administration joint pain Diclofenac Sodium 1 applic 03/19/24 17:00 03/19/24 20:54 Diclofenac Sodium 1% 100 Gm Gel (*Bkc) TOPICAL 1 applic QID IAN Administration Enoxaparin Sodium 80 mg 03/13/24 21:50 03/19/24 20:45 Enoxaparin 80 Mg/0.8 Ml Syringe SUB-Q 80 mg Q12HR IAN Administration Furosemide 20 mg 03/16/24 09:00 03/20/24 04:27 Furosemide 20 Mg Tablet PO 20 mg DAILY IAN Administration Gabapentin 300 mg 03/08/24 21:00 03/19/24 20:46 Gabapentin 300 Mg Capsule PO 300 mg Q12HR IAN Administration Guaifenesin 1,200 mg 03/13/24 12:50 03/19/24 20:45 Guaifenesin 12 Hr 600 Mg Tabcr PO 1,200 mg Q12HR IAN Administration Guaifenesin/Dextromethorphan 10 ml 03/11/24 23:14 03/14/24 07:53 Guaifenesin/Dextromethorphan 10 Ml Udc PO 10 ml Q4H PRN Administration Cough Hydromorphone HCl 0.2 mg 03/10/24 12:48 03/20/24 03:50 Hydromorphone Hcl Inj (*Crx) 1 Mg/Ml Syr IV PUSH 0.2 mg Q6H PRN Administration Pain Rated 7-10 Melatonin 5 mg 03/15/24 21:00 03/19/24 20:45 Melatonin 5 Mg Tablet PO 5 mg HS IAN Administration Methimazole 5 mg 03/09/24 09:00 03/19/24 08:54 Methimazole 5 Mg Tab PO 5 mg DAILY IAN Administration Metoprolol Tartrate 25 mg 03/19/24 09:00 03/20/24 04:26 Metoprolol Tartrate 25 Mg Tablet PO 25 mg BID IAN Administration Miscellaneous Information 1 each 03/19/24 00:01 Hydromorphone Needs To Be Renewed Or It Will Automatically Discontinue. XX 04/18/24 00:00 CLARIFY IAN Cinacalcet 15 Mg 0 each 03/10/24 09:00 03/19/24 10:08 Tablet PO 04/09/24 08:59 1 each DAILY IAN Administration Pantoprazole Sodium 40 mg 03/09/24 09:00 03/19/24 08:54 Pantoprazole 40 Mg Tablet PO 40 mg QAM IAN Administration Potassium Chloride 10 meq 03/08/24 21:00 03/19/24 20:45 Potassium Chloride 10 Meq Er Tablet PO 10 meq HS IAN Administration Simvastatin 10 mg 03/08/24 21:00 03/19/24 20:45 Simvastatin 10 Mg Tablet PO 10 mg HS IAN Administration Venlafaxine HCl 150 mg 03/09/24 09:00 03/19/24 08:55 Venlafaxine Hcl Xr 75 Mg Cap.Er.24h PO 150 mg DAILY IAN Administration Vitamin D 1,000 units 03/09/24 09:00 03/19/24 08:54 Cholecalciferol 1,000 Units Tablet PO 1,000 units DAILY IAN Administration Warfarin Sodium 9 mg 03/11/24 17:00 03/13/24 17:40 Warfarin (*Pbkc) 3 Mg Tablet PO 9 mg DAILY@1700 IAN Administration Radiology Results: ITS Impressions Chest X-Ray 03/20/24 06:33 IMPRESSION: No acute cardiopulmonary process or significant change since 03/18/2024 Labs Labs: Laboratory Results - last 24 hr 03/19/24 03/20/24 03/20/24 20:18 03:56 04:04 WBC 9.0 RBC 3.22 L Hgb 10.7 L Hct 33.1 L MCV 102.8 H MCH 33.2 MCHC 32.3 RDW 13.5 Plt Count 226 MPV 12.8 H Immature Gran % (Auto) 0.7 H Neut % (Auto) 68.2 Lymph % (Auto) 13.8 L Ada % (Auto) 15.3 H Eos % (Auto) 1.4 Baso % (Auto) 0.6 Lymph # (Auto) 1.24 Ada # (Auto) 1.4 H Eos # (Auto) 0.1 Baso # (Auto) 0.1 Abs Immat Gran (auto) 0.06 H Absolute Neuts (auto) 6.1 Absolute Nucleated RBC 0.060 H Nucleated RBC % 0.7 H PT 33.2 H INR 3.2 Sodium 130 L Potassium 4.1 Chloride 97 L Carbon Dioxide 32 H Anion Gap 1 L BUN 21 H Creatinine 1.29 H Estim Creat Clear Calc 33 Estimated GFR 40 L Glucose 117 H POC Capillary Glucose 146 H 119 H Lactic Acid 1.0 Calcium 9.3 Phosphorus 1.6 L Magnesium 1.8 Total Bilirubin 0.6 AST 39 H ALT 27 Alkaline Phosphatase 90 Troponin I 0.039 H* NT-Pro-B Natriuret Pep 5800 H Total Protein Albumin 03/20/24 03/20/24 03/20/24 04:04 07:02 08:43 WBC RBC Hgb Hct MCV MCH MCHC RDW Plt Count MPV Immature Gran % (Auto) Neut % (Auto) Lymph % (Auto) Ada % (Auto) Eos % (Auto) Baso % (Auto) Lymph # (Auto) Ada # (Auto) Eos # (Auto) Baso # (Auto) Abs Immat Gran (auto) Absolute Neuts (auto) Absolute Nucleated RBC Nucleated RBC % PT INR Sodium Potassium Chloride Carbon Dioxide Anion Gap BUN Creatinine Estim Creat Clear Calc Estimated GFR Glucose POC Capillary Glucose 117 H Lactic Acid Calcium Phosphorus Magnesium Total Bilirubin AST ALT Alkaline Phosphatase Troponin I 0.037 H* NT-Pro-B Natriuret Pep Cancelled Total Protein 7.0 Albumin 3.2 L Quality VTE Prophylaxis VTE prophylaxis: pharmacologic ordered
[2024-03-20] MEDS: guaiFENesin 12 HR 600 MG TABCR 1200 MG PO ×2 (10:00→21:36)
[2024-03-20] MEDS: ENOXAPARIN 80 MG/0.8 ML SYRINGE SUB-Q ×2 (10:00→21:37)
[2024-03-20] MEDS: VENLAFAXINE HCL XR 75 MG CAP.ER.24H 150 MG PO (10:00)
[2024-03-20] MEDS: CYANOCOBALAMIN 1,000 MCG TABLET 1000 MCG PO (10:00)
[2024-03-20] MEDS: CHOLECALCIFEROL 1,000 UNITS TABLET 1000 UNITS PO (10:01)
[2024-03-20] MEDS: PANTOPRAZOLE 40 MG TABLET PO (10:01)
[2024-03-20] MEDS: GABAPENTIN 300 MG CAPSULE PO ×2 (10:01→21:36)
[2024-03-20] MEDS: methiMAzole 5 MG TAB PO (10:01)
[2024-03-20] MEDS: CINACALCET PO (10:02)
[2024-03-20 10:43] LABS: Troponin I 0.041 ng/mL (0.000-0.034)
[2024-03-20 11:41] LABS: Glucose Point of Care 192 mg/dl (65-105)
[2024-03-20] MEDS: METOPROLOL TARTRATE 50 MG TAB PO (15:38)
[2024-03-20] MEDS: CYCLOBENZAPRINE HCL 5 MG TABLET PO (15:42)
[2024-03-20 16:59] LABS: Glucose Point of Care 198 mg/dl (65-105)
[2024-03-20] MEDS: DICLOFENAC SODIUM 1% 100 GM GEL (*BKC) 1 APPLIC TOPICAL ×2 (17:18→21:38)
[2024-03-20] MEDS: POTASSIUM CHLORIDE 10 MEQ ER TABLET PO (21:36)
[2024-03-20] MEDS: SIMVASTATIN 10 MG TABLET PO (21:36)
[2024-03-20] MEDS: MELATONIN 5 MG TABLET PO (21:38)
[2024-03-20] MEDS: ALPRAZolam (*CRX) 0.25 MG TABLET PO (21:42)
[2024-03-20 21:43] LABS: Glucose Point of Care 169 mg/dl (65-105)
[2024-03-21] VITALS (16 sets, daily range): BP systolic 95–152; BP diastolic 65–77; PULSE 87–150; RESP 20–22; TEMP 36.6–36.8; O2SAT 91–100
[2024-03-21] MEDS: dilTIAZem HCL 30 MG TABLET PO (01:21)
[2024-03-21] MEDS: HYDROmorphone HCL INJ (*CRX) 1 MG/ML SYR IV PUSH (01:51)
[2024-03-21] MEDS: METOPROLOL TARTRATE INJ 5 MG/5 ML VIAL IV PUSH (02:25)
[2024-03-21 06:45] LABS: INR 3.1; Prothrombin Time 32.1 Seconds (11.1-14.7)
[2024-03-21 07:43] LABS: Glucose Point of Care 168 mg/dl (65-105)
--- NOTE | 2024-03-21 07:50 | PM.PNCARD ---
Progress Note: A&P Assessment and Plan (1) Systolic dysfunction: Code(s): I51.9 - Heart disease, unspecified Status: Acute Assessment and Plan: Moderate with EF 35-40% and was 45%. Euvolemic on Lasix. Obtain lexiscan myoview today. If negative, no further cardiac workup is needed. (2) Mechanical heart valve present: Code(s): Z95.2 - Presence of prosthetic heart valve Status: Acute Assessment and Plan: On Warfarin normally to keep INR 2.5-3.0 and managed by her PCP. On Lovenox currently while in hospital. Eventually needs to be transitioned back to Warfarin upon discharge. (3) Atrial fibrillation: Code(s): I48.91 - Unspecified atrial fibrillation Status: Acute Assessment and Plan: Controlled now, but rate fluctuates here up to 160's bpm which could be due to volume depletion/anemia/pain. Normally she is not very fast on low dose Metoprolol 12.5 mg daily. Normally on Warfarin as per treatment for mechanical AVR. On Metoprolol 25 mg every 6 hours. Increase Metoprolol 50 mg TID. (4) Hyperlipidemia: Qualifiers: Hyperlipidemia type: mixed hyperlipidemia Qualified Code(s): E78.2 - Mixed hyperlipidemia Code(s): E78.5 - Hyperlipidemia, unspecified Status: Acute Assessment and Plan: On Simvastatin. (5) HTN (hypertension): Qualifiers: Hypertension type: primary hypertension Qualified Code(s): I10 - Essential (primary) hypertension Code(s): I10 - Essential (primary) hypertension Status: Acute Assessment and Plan: Stable. (6) LBBB (left bundle branch block): Code(s): I44.7 - Left bundle-branch block, unspecified Status: Acute (7) Elevated troponin: Code(s): R77.8 - Other specified abnormalities of plasma proteins Status: Inactive Assessment and Plan: Flat and slightly elevated at .055. Could be related to demand ischemia from intermittent rapid HR/CKD/anemia. Subjective Date/time seen: 03/21/24 07:50 Interval history: She is having severe pain intermittently in left lower quadrant. No chest pain or sob. Exam Const: General: cooperative, healthy appearing and comfortable Resp: Auscultation: clear to auscultation bilaterally, no crackles, no rales, no rhonchi and no wheezes Cardio: Rate: regular rate Rhythm: abnormal rhythm Heart sounds: Clicking heart sound present (S2) and no murmurs Peripheral pulses: dorsalis pedis present GI: GI Palp: No abdominal tenderness and Yes Soft to palpation Neuro: General: oriented to person, oriented to place and oriented to time Extrem: Right lower extremity: no edema Left lower extremity: no edema Objective Data Vital Signs Vital Signs: Vital Signs - 24 hr 03/20/24 08:00 03/20/24 12:00 03/20/24 14:00 Temperature 98.3 F Pulse Rate 96 106 H 91 Respiratory Rate 18 Blood Pressure 110/62 Pulse Oximetry 93 03/20/24 15:38 03/20/24 16:00 03/20/24 20:00 Temperature Pulse Rate 126 H 119 H 117 H Respiratory Rate Blood Pressure Pulse Oximetry 03/20/24 21:50 03/21/24 00:00 03/21/24 02:24 Temperature 98.5 F Pulse Rate 100 119 H Respiratory Rate 20 Blood Pressure 115/63 152/68 H Pulse Oximetry 93 03/21/24 02:25 03/21/24 04:00 03/21/24 05:35 Temperature 97.8 F Pulse Rate 150 H 120 H 120 H Respiratory Rate 20 Blood Pressure 115/77 Pulse Oximetry 100 Intake/Output Intake/Output: Intake & Output 03/18/24 03/19/24 03/20/24 03/21/24 23:59 23:59 23:59 23:59 Intake Total 1048 320 480 350 Output Total 450 450 750 150 Balance 598 -130 -270 200 Meds/Results Medications: Active Medications Generic Name Dose Route Start Last Admin Trade Name Freq PRN Reason Stop Dose Admin Acetaminophen 1,000 mg 03/10/24 10:04 03/19/24 09:01 Acetaminophen 500 Mg Tablet PO 1,000 mg Q6H PRN Administration Mild Pain (1-3) or Fever Hydrocodone Bitart/Acetaminophen 1 tab 03/08/24 17:21 03/20/24 17:17 Hydrocodone/Acetaminophen (*Crx) 5-325 Mg Tablet PO 1 tab Q6H PRN Administration Pain Rated 4-6 Albuterol 2 puff 03/08/24 17:21 Albuterol Sulfate (*Sp) Aerosol 1 Puff INHALATION QID PRN Shortness Of Breath Alprazolam 0.25 mg 03/08/24 17:21 03/20/24 21:42 Alprazolam (*Crx) 0.25 Mg Tablet PO 0.25 mg HS PRN Administration Anxiety Benzocaine 1 lozenge 03/10/24 18:17 03/16/24 08:17 Benzocaine/Menthol (*Bkc) 18 Ea Lozenge PO 1 lozenge PRN PRN Administration Sore Throat Cyanocobalamin 1,000 mcg 03/09/24 09:00 03/20/24 10:00 Cyanocobalamin 1,000 Mcg Tablet PO 1,000 mcg DAILY IAN Administration Cyclobenzaprine HCl 5 mg 03/19/24 14:03 03/20/24 15:42 Cyclobenzaprine Hcl 5 Mg Tablet PO 5 mg Q8H PRN Administration Muscle Spasm Diclofenac Sodium 1 applic 03/10/24 10:04 03/19/24 18:33 Diclofenac Sodium 1% 100 Gm Gel (*Bkc) TOPICAL 1 applic QID PRN Administration joint pain Diclofenac Sodium 1 applic 03/19/24 17:00 03/20/24 21:38 Diclofenac Sodium 1% 100 Gm Gel (*Bkc) TOPICAL 1 applic QID IAN Administration Enoxaparin Sodium 80 mg 03/13/24 21:50 03/20/24 21:37 Enoxaparin 80 Mg/0.8 Ml Syringe SUB-Q 80 mg Q12HR IAN Administration Furosemide 20 mg 03/16/24 09:00 03/20/24 04:27 Furosemide 20 Mg Tablet PO 20 mg DAILY IAN Administration Gabapentin 300 mg 03/08/24 21:00 03/20/24 21:36 Gabapentin 300 Mg Capsule PO 300 mg Q12HR IAN Administration Guaifenesin 1,200 mg 03/13/24 12:50 03/20/24 21:36 Guaifenesin 12 Hr 600 Mg Tabcr PO 1,200 mg Q12HR IAN Administration Guaifenesin/Dextromethorphan 10 ml 03/11/24 23:14 03/14/24 07:53 Guaifenesin/Dextromethorphan 10 Ml Udc PO 10 ml Q4H PRN Administration Cough Melatonin 5 mg 03/15/24 21:00 03/20/24 21:38 Melatonin 5 Mg Tablet PO 5 mg HS IAN Administration Methimazole 5 mg 03/09/24 09:00 03/20/24 10:01 Methimazole 5 Mg Tab PO 5 mg DAILY COUNT INCLUDES THE [facility] Administration Metoprolol Tartrate 50 mg 03/21/24 09:00 Metoprolol Tartrate 50 Mg Tab PO TID COUNT INCLUDES THE [facility] Miscellaneous Information 1 each 03/19/24 00:01 Hydromorphone Needs To Be Renewed Or It Will Automatically Discontinue. XX 04/18/24 00:00 CLARIFY COUNT INCLUDES THE [facility] Cinacalcet 15 Mg 0 each 03/10/24 09:00 03/20/24 10:02 Tablet PO 04/09/24 08:59 1 each DAILY COUNT INCLUDES THE [facility] Administration Pantoprazole Sodium 40 mg 03/09/24 09:00 03/20/24 10:01 Pantoprazole 40 Mg Tablet PO 40 mg QAM COUNT INCLUDES THE [facility] Administration Potassium Chloride 10 meq 03/08/24 21:00 03/20/24 21:36 Potassium Chloride 10 Meq Er Tablet PO 10 meq HS COUNT INCLUDES THE [facility] Administration Simvastatin 10 mg 03/08/24 21:00 03/20/24 21:36 Simvastatin 10 Mg Tablet PO 10 mg HS COUNT INCLUDES THE [facility] Administration Venlafaxine HCl 150 mg 03/09/24 09:00 03/20/24 10:00 Venlafaxine Hcl Xr 75 Mg Cap.Er.24h PO 150 mg DAILY IAN Administration Vitamin D 1,000 units 03/09/24 09:00 03/20/24 10:01 Cholecalciferol 1,000 Units Tablet PO 1,000 units DAILY IAN Administration Warfarin Sodium 9 mg 03/11/24 17:00 03/13/24 17:40 Warfarin (*Pbkc) 3 Mg Tablet PO 9 mg DAILY@1700 COUNT INCLUDES THE [facility] Administration Radiology Results: ITS Impressions Chest X-Ray 03/20/24 06:33 IMPRESSION: No acute cardiopulmonary process or significant change since 03/18/2024 Labs Labs: Laboratory Results - last 24 hr 03/20/24 03/20/24 03/20/24 07:02 08:43 10:05 PT INR POC Capillary Glucose 117 H Troponin I 0.037 H* 0.041 H* 03/20/24 03/20/24 03/20/24 11:36 16:55 20:25 PT INR POC Capillary Glucose 192 H 198 H 169 H Troponin I 03/21/24 03/21/24 06:11 07:36 PT 32.1 H INR 3.1 POC Capillary Glucose 168 H Troponin I
[2024-03-21 10:22] LABS: Hematocrit 32.1 % (37.0-47.0); Immature Platelet Fraction Pct 15.2 % (0.9-11.2); Mean Corpuscular HGB Conc 31.2 g/dl (32-36); Mean Corpuscular Volume 105.9 fl (80-100); Mean Platelet Volume 14.1 fl (7.4-10.4); Platelet Count Result 228 k/mm3 (150-375); Red Blood Count 3.03 M/mm3 (4.2-5.4); Red Cell Distribution Width 13.8 % (11.5-14.5); White Blood Count 12.2 K/mm3 (4.5-10.0)
[2024-03-21] MEDS: HYDROcodone/acetaminophen (*CRX) 5-325 MG TABLET 1 TAB PO ×2 (10:35→16:43)
[2024-03-21] MEDS: CINACALCET PO (10:42)
[2024-03-21] MEDS: FUROSEMIDE 20 MG TABLET PO (10:44)
[2024-03-21] MEDS: CHOLECALCIFEROL 1,000 UNITS TABLET 1000 UNITS PO (10:45)
[2024-03-21] MEDS: GABAPENTIN 300 MG CAPSULE PO ×2 (10:45→20:40)
[2024-03-21] MEDS: METOPROLOL TARTRATE 50 MG TAB PO ×3 (10:45→16:44)
[2024-03-21] MEDS: VENLAFAXINE HCL XR 75 MG CAP.ER.24H 150 MG PO (10:45)
[2024-03-21] MEDS: guaiFENesin 12 HR 600 MG TABCR 1200 MG PO ×2 (10:45→20:41)
[2024-03-21] MEDS: CYANOCOBALAMIN 1,000 MCG TABLET 1000 MCG PO (10:46)
[2024-03-21] MEDS: methiMAzole 5 MG TAB PO (10:46)
[2024-03-21] MEDS: PANTOPRAZOLE 40 MG TABLET PO (10:46)
[2024-03-21] MEDS: DICLOFENAC SODIUM 1% 100 GM GEL (*BKC) 1 APPLIC TOPICAL ×4 (10:51→20:43)
[2024-03-21 11:10] LABS: Alanine Aminotransferase 22 U/L (6-35); Albumin Level 2.8 g/dL (3.5-5.1); Alkaline Phosphatase 95 U/L (38-126); Anion Gap 6 mmol/L (4-12); Aspartate Amino Transferase 30 U/L (14-36); Bilirubin,Total 0.7 mg/dL (0.2-1.3); Blood Urea Nitrogen 23 mg/dL (7-17); Calcium 8.8 mg/dL (8.4-10.2); Carbon Dioxide 28 mmol/L (22-30); Chloride 97 mmol/L (98-107); Estimated CRCL calculation 33 ml/min; Estimated Glomerular Filt Rate 40; Glucose 154 mg/dL (65-110); Potassium 4.5 mmol/L (3.4-5.0); Sodium 131 mmol/L (137-145)
[2024-03-21] MEDS: HYDROmorphone HCL INJ (*CRX) 1 MG/ML SYR 0.2 MG IV PUSH (11:54)
--- NOTE | 2024-03-21 12:15 | PCOTNOTE ---
Attempted to see Patient, Per RN, unable to be seen this A.M. Patient having fluctuating heart rates, requiring 3LO2, and going down for a CT scan.
[2024-03-21] MEDS: FUROSEMIDE INJ 40 MG/4 ML VIAL IV PUSH (12:45)
--- NOTE | 2024-03-21 13:25 | PCOTNOTE ---
Attempted again this afternoon. Patient declined, stated she is in to much abdominal pain, not today. RN notified and aware
--- NOTE | 2024-03-21 15:58 | P.PNIM_ITS ---
Progress Note: A&P Assessment and Plan (1) Mechanical heart valve present: Code(s): Z95.2 - Presence of prosthetic heart valve Status: Acute Assessment and Plan: 03/21 : I assumed care today. Patient INR is 3.1. Patient target INR is 2.5-3. Currently warfarin is on hold. Patient is also on Lovenox 80 mg b.i.d.. Since patient is already over therapeutic INR and in spite of receiving Lovenox makes her over anticoagulated. So today discontinued Lovenox. Given her warfarin 5 mg x 1 and possibly restart her home warfarin dosage 9mg from tomorrow. I performed CT chest/abdomen/pelvis which shows hematoma in the left anterior abdominal wall 3 x 2.5 cm. Discussed the goal of care with the nursing team. Patient wants some time to decide on her code status. Audible mechanical heart valve. INR subtherapeutic for several days, 1.5, 1.4, 1 today. Next of Kin, PCP manages INR and warfarin doses for her. Next of Kin, Anshul coordinates with the office. The last 2 weeks before admission she was keyon ing 6 mg thursday-, 5mg thursday, sat, sun. Generally has INR checks ever 2 weeks Goal INR 2.5-3.5 with her mechanical valve. Izzy reports 9mg daily is a higher dose than she has needed previously --Started a heparin drip with a bolus for subtherapeutic INR --Follow CBC since trending down but may be dilutional. Stable overnight --Warfarin 8mg<9mg daily --Daily INR, closer to goal --Coordinate INR checks & follow up plan with PCP's office, Dr. Sanjeev Rosenberg 03/07 1.5 03/08 Warfarin 6mg 03/09 1.4 Warfarin 6mg 03/10 1 Warfarin 8mg 03/11 1.7 Warfarin 9mg 03/12 2.1 & 2.2 Warfarin 9mg (lab said it was likely run twice for a precision check) 03/14: * 3.9 - Will hold tonight's dose. * Continue to trend daily INR's * Therapeutically dosed Lovenox is discontinued at this time as pt has been receiving it as a bridge. 03/15 * INR 4.1 * Continue to hold Warfarin * Continue to trend daily INR * Reports passing a small amount of bright red blood today after bowel movement * Continue to monitor. * Patient on Augmentin which can make therapeutic trend challenging 03/16 * INR 3.9 * Continue to hold Warfarin 03/17 * INR 3.3 * Continue to hold Warfarin 03/18 * INR 3.4 * Continue to hold Warfarin for now 03/19 * INR 3.5 * Continue to hold warfarin 03/20 * INR 3.2 today * Continue to hold Warfarin 03/21 INR 3.1 Discontinue Lovenox due to over anticoagulation Supratherapeutic INR 3.1 Hold warfarin Evidence of hematoma in the left anterior abdominal wall 3 x 2.5 cm (2) Palpitations: Code(s): R00.2 - Palpitations Status: Acute Assessment and Plan: - Likely due to PAF with RVR. - Better after hydration and resuming home meds. 03/14/24 * Rate now controlled significantly better. * Continue Telemetry. * Continue to monitor. 03/15/24 * Rate controlled in the 90's * Discontinue telemetry * Hold Warfarin for supratherapeutic INR 03/16 * Continue to hold Warfarin (3) Acute kidney injury: Code(s): N17.9 - Acute kidney failure, unspecified Status: Acute Assessment and Plan: Ddx pre-renal vs poor PO intake vs meds vs other. s/p 500 bolus with tachycardia --Resumed lasix --Creatinine stable 03/14/24: * Continue Lasix as ordered * Creatinine today 1.2, at baseline. * Continue to trend and monitor. 03/15/23: * Creatinine 1.16 currently at baseline 03/16 * Creatinine 1.33 03/17 * Creatinine 1.41 03/18 * stable, near baseline (4) HTN (hypertension): Qualifiers: Hypertension type: primary hypertension Qualified Code(s): I10 - Essential (primary) hypertension Code(s): I10 - Essential (primary) hypertension Status: Acute Assessment and Plan: - Appears well controlled. - Continue metoprolol, changed from XL to IR for titration - Follow VS 03/14/24: * Continuing to trend and monitor. Stable 03/15/24: * Blood pressures ranging 125/54-150/68 * Continue Metoprolol (5) Hyperlipidemia: Qualifiers: Hyperlipidemia type: mixed hyperlipidemia Qualified Code(s): E78.2 - Mixed hyperlipidemia Code(s): E78.5 - Hyperlipidemia, unspecified Status: Acute Assessment and Plan: * continue simvastatin (6) Shortness of breath: Code(s): R06.02 - Shortness of breath Status: Acute Assessment and Plan: Mildly tachypneic. Not obviously overloaded on exam, likely 2/2 pneumonia --Started heparin drip, if not resolved consider a CT r/o PE, but is on warfarin chronically for mechanical heart valve --Treatment of pneumonia and heart failure, rate control afib --PEP therapy for airway clearance 03/14/24: * Continue Unasyn for underlying cause of PNA. * Wean oxygen for sats >90%. Nursing order placed. * Continue to trend. 03/15/23: * Will change to Augmentin today * Currently on 2L NC * Continue to wean for a saturation greater than 90%. 03/16 * Continue to wean O2 * Currently on 2L NC * lasix 40 mg IVP given today 03/17 * Currently on room air * Will add home dose of 20 mg Lasix oral (7) Anemia: Code(s): D64.9 - Anemia, unspecified Status: Acute Assessment and Plan: Blood count trending down since admission but may be dilutional 14.2>11.1 Iron panel showing iron deficiency anemia, Total Iron and Tsat low. B12 636. LDH 245 --iron sucrose 300mg x3 doses --Follow CBC --If downtrending would need GI consult on chronic anticoagulation 03/14/24: * Hgb further declined today to 10.5. * Small drop, continue to monitor. * Pt just finished her third dose of Venofer. * Occult blood ordered from stool. * Consider GI consult if further declination as she is on chronic anticoagulation. * Pt's INR today is 3.9. Her dose of Coumadin for tonight is held and will need restarted tomorrow if applicable. In addition, the pt's Therapeutically dosed bridge Lovenox is discontinued today. * Monitor for any s/s of acute bleeding. 03/15/23: * Hgb 10.3 today * Patient had 3 doses of Venofer * collect occult blood stool 03/16 * No real change, Hgb 10.9 (8) Heart failure, diastolic, acute on chronic: Code(s): I50.33 - Acute on chronic diastolic (congestive) heart failure Status: Acute Assessment and Plan: 08/24/23 Echo: TDS. EF 45%, biatrial enlargement, suspect (YADIRA 1.4 cm2), mod MR, mild-mod TR. s/p 500ml fluid bolus, now back on IV lasix NT-proBNP 10,000 Resume lasix, 20mg IV daily & increase as able TTE 03/14/24: * Chronic in nature. * Appears euvolemic. * Continue Lasix 03/15/23: * Will increase to 40 mg IVP lasix today * Course bilaterally with peripheral swelling 03/16 * continue Lasix 03/17 * Transition to oral Lasix * Appears euvolemic 03/18 * Flipped into A fib with RVR today * Lungs sounding course * Will repeat CXR now * Last Echo on 03/11/24 shown LVEF of 3-40% 03/19 * Back in NSR * Continue telemetry monitoring * CXR was negative * proBNP elevated, however lung sounds are clear 03/20 * Flipped back into A fib RVR overnight * Repeat EKG showing new LBBB--Cardiology was notified. * Mild troponin bump--likely demand ischemia * Plan for Lexiscan stress test tomorrow to further evaluate (9) Pneumonia: Code(s): J18.9 - Pneumonia, unspecified organism Status: Acute Assessment and Plan: Resolved. Hospital associated pneumonia. Chest x-ray showed possible RLL pneumonia. Has crackles on exam. Intermittent fevers. Resolved today after starting unasyn. On room air --Started Unasyn, change to augmentin if improving --If new oxygen requirements, broaden to Cefepime/Vanc/Flagyl --Also has a sore throat, checking strep culture. Chlorseptic drops & tylenol prn --Urine for strep pneumo --Follow up chest x-ray if new oxygen requirement or not resolving --Staph screen. Can broaden to Cefepime/Vanc if worsening --Sputum culture if able to collect. Would only use to guide treatment if not improving with current antibiotics 03/14/24: * Continue Unasyn. Could likely switch to oral Augmentin tomorrow. 03/15/24: * Unasyn changed to Augmentin 03/18/24 * Augmentin finished today (10) Atrial fibrillation with RVR: Code(s): I48.91 - Unspecified atrial fibrillation Status: Acute Assessment and Plan: Home metoprolol ER 25mg daily Resting HR 70s-90s, 100-130's with activity on 03/10. Rate controlled with increased dose of metoprolol and a 500ml fluid bolus - Change Metoprolol ER 25mg daily to metoprolol tartrate 12.5mg q6 and titrate. 5mg IV metoprolol --INR goal as noted for mechanical heart valve. INR can be affected by antibiotics --Cardiology consulted, appreciate recommendations 03/15/24: * Rate controlled in the 90's * Continue Metoprolol * D/C continuous tele * Hold Warfarin due to supratherapeutic INR 03/17 * Continue to hold Warfarin 03/18 * Went back into Afib RVR today * Continue to hold Warfarin due to supratherapeutic INR * Will increase Metoprolol to 25 mg q6h for better rate control * Continue tele * Cardiology reconsulted * repeating CXR 03/19 * In NSR now, continue Metoprolol 25 mg q6h * Continue tele for now * Cardiology following * CXR negative 03/20 * Flipped back into A fib RVR overnight * Repeat EKG showing new LBBB--Cardiology was notified. * Mild troponin bump--likely demand ischemia * Plan for Lexiscan stress test tomorrow to further evaluate 03/21 Metoprolol tartrate 50 mg p.o. t.i.d. Warfarin 5 mg p.o. q.d. Subjective Date/time seen: 03/21/24 15:58 Interval history: I assumed care today. Patient INR is 3.1. Patient target INR is 2.5-3. Currently warfarin is on hold. Patient is also on Lovenox 80 mg b.i.d.. Since patient is already has over therapeutic INR and in spite of receiving Lovenox makes her over anticoagulation dosage. So today discontinued Lovenox. Given her warfarin 5 mg x 1 and possibly restart her home warfarin dosage 9mg from tomorrow. I performed CT chest/abdomen/pelvis which shows hematoma in the left anterior abdominal wall 3 x 2.5 cm. Discussed the goal of care with the nursing team. Patient wants some time to decide on her code status. Review of Systems Review of Systems: All systems reviewed & are unremarkable except as noted in HPI and below Constitutional: Constitutional: Reports as per HPI and Reports no additional constitutional complaints Eyes: Eyes: Reports as per HPI and Reports no additional eye complaints ENT: Reports system reviewed and no additional complaints, except as documented and Reports as per HPI Cardiovascular: Cardiovascular: Reports as per HPI and Reports no additional cardiovascular complaints Respiratory: Respiratory: Reports as per HPI and Reports no additional respiratory complaints Gastrointestinal: Gastrointestinal: Reports as per HPI and Reports no additional gastrointestinal complaints Genitourinary: Genitourinary: Reports no additional female genitourinary complaints and Reports as per HPI Musculoskeletal: Musculoskeletal: Reports no additional musculoskeletal complaints and Reports as per HPI Integumentary/Breasts: Skin/Breast: Reports system reviewed and no additional complaints, except as docu and Reports as per HPI Neurologic: Reports system reviewed and no additional complaints, except as documented and Reports as per HPI Psychiatric: Psychiatric: Reports no additional psychiatric complaints and Reports as per HPI Exam Narrative: General: In no acute distress, well nourished Cardiac: Normal S1 and S2. NSR, No murmur, gallops or friction rubs, peripheral pulses intact. Respiratory: Lungs clear bilaterally , no adventitious lung sounds, currently on room air, raspy cough Gastrointestinal: soft, non-distended, non-tender, normoactive bowel sounds. : voiding without difficulty. Neuro: Alert and oriented x4 Objective Data Vital Signs Vital Signs: Vital Signs - 24 hr 03/20/24 16:00 03/20/24 20:00 03/20/24 21:50 Temperature 98.5 F Pulse Rate 119 H 117 H 100 Respiratory Rate 20 Blood Pressure 115/63 Pulse Oximetry 93 Oxygen Delivery Oxygen Flow Rate 03/21/24 00:00 03/21/24 02:24 03/21/24 02:25 Temperature Pulse Rate 119 H 150 H Respiratory Rate Blood Pressure 152/68 H Pulse Oximetry Oxygen Delivery Oxygen Flow Rate 03/21/24 04:00 03/21/24 05:35 03/21/24 10:30 Temperature 97.8 F Pulse Rate 120 H 120 H Respiratory Rate 20 Blood Pressure 115/77 Pulse Oximetry 100 91 Oxygen Delivery Nasal Cannula Oxygen Flow Rate 3 03/21/24 10:45 03/21/24 12:42 03/21/24 12:44 Temperature 98.1 F Pulse Rate 122 H 89 88 Respiratory Rate 20 Blood Pressure 114/71 Pulse Oximetry 98 Oxygen Delivery Oxygen Flow Rate Intake/Output Intake/Output: Intake & Output 03/18/24 03/19/24 03/20/24 03/21/24 23:59 23:59 23:59 23:59 Intake Total 1048 320 480 590 Output Total 450 450 750 150 Balance 598 130 -283 440 Meds/Results Medications: Active Medications Generic Name Dose Route Start Last Admin Trade Name Freq PRN Reason Stop Dose Admin Acetaminophen 1,000 mg 03/10/24 10:04 03/19/24 09:01 Acetaminophen 500 Mg Tablet PO 1,000 mg Q6H PRN Administration Mild Pain (1-3) or Fever Hydrocodone Bitart/Acetaminophen 1 tab 03/08/24 17:21 03/21/24 10:35 Hydrocodone/Acetaminophen (*Crx) 5-325 Mg Tablet PO 1 tab Q6H PRN Administration Pain Rated 4-6 Albuterol 2 puff 03/08/24 17:21 Albuterol Sulfate (*Sp) Aerosol 1 Puff INHALATION QID PRN Shortness Of Breath Alprazolam 0.25 mg 03/08/24 17:21 03/20/24 21:42 Alprazolam (*Crx) 0.25 Mg Tablet PO 0.25 mg HS PRN Administration Anxiety Benzocaine 1 lozenge 03/10/24 18:17 03/16/24 08:17 Benzocaine/Menthol (*Bkc) 18 Ea Lozenge PO 1 lozenge PRN PRN Administration Sore Throat Cyanocobalamin 1,000 mcg 03/09/24 09:00 03/21/24 10:46 Cyanocobalamin 1,000 Mcg Tablet PO 1,000 mcg DAILY IAN Administration Cyclobenzaprine HCl 5 mg 03/19/24 14:03 03/20/24 15:42 Cyclobenzaprine Hcl 5 Mg Tablet PO 5 mg Q8H PRN Administration Muscle Spasm Diclofenac Sodium 1 applic 03/10/24 10:04 03/19/24 18:33 Diclofenac Sodium 1% 100 Gm Gel (*Bkc) TOPICAL 1 applic QID PRN Administration joint pain Diclofenac Sodium 1 applic 03/19/24 17:00 03/21/24 12:45 Diclofenac Sodium 1% 100 Gm Gel (*Bkc) TOPICAL 1 applic QID IAN Administration Furosemide 20 mg 03/16/24 09:00 03/21/24 10:44 Furosemide 20 Mg Tablet PO 20 mg DAILY IAN Administration Gabapentin 300 mg 03/08/24 21:00 03/21/24 10:45 Gabapentin 300 Mg Capsule PO 300 mg Q12HR IAN Administration Guaifenesin 1,200 mg 03/13/24 12:50 03/21/24 10:45 Guaifenesin 12 Hr 600 Mg Tabcr PO 1,200 mg Q12HR IAN Administration Guaifenesin/Dextromethorphan 10 ml 03/11/24 23:14 03/14/24 07:53 Guaifenesin/Dextromethorphan 10 Ml Udc PO 10 ml Q4H PRN Administration Cough Hydromorphone HCl 0.2 mg 03/21/24 11:31 03/21/24 11:54 Hydromorphone Hcl Inj (*Crx) 1 Mg/Ml Syr IV PUSH 0.2 mg Q6H PRN Administration Pain Rated 7-10 Melatonin 5 mg 03/15/24 21:00 03/20/24 21:38 Melatonin 5 Mg Tablet PO 5 mg HS IAN Administration Methimazole 5 mg 03/09/24 09:00 03/21/24 10:46 Methimazole 5 Mg Tab PO 5 mg DAILY IAN Administration Metoprolol Tartrate 50 mg 03/21/24 09:00 03/21/24 12:44 Metoprolol Tartrate 50 Mg Tab PO 50 mg TID IAN Administration Cinacalcet 15 Mg 0 each 03/10/24 09:00 03/21/24 10:42 Tablet PO 04/09/24 08:59 1 each DAILY IAN Administration Pantoprazole Sodium 40 mg 03/09/24 09:00 03/21/24 10:46 Pantoprazole 40 Mg Tablet PO 40 mg QAM IAN Administration Potassium Chloride 10 meq 03/08/24 21:00 03/20/24 21:36 Potassium Chloride 10 Meq Er Tablet PO 10 meq HS IAN Administration Simvastatin 10 mg 03/08/24 21:00 03/20/24 21:36 Simvastatin 10 Mg Tablet PO 10 mg HS IAN Administration Venlafaxine HCl 150 mg 03/09/24 09:00 03/21/24 10:45 Venlafaxine Hcl Xr 75 Mg Cap.Er.24h PO 150 mg DAILY IAN Administration Vitamin D 1,000 units 03/09/24 09:00 03/21/24 10:45 Cholecalciferol 1,000 Units Tablet PO 1,000 units DAILY IAN Administration Warfarin Sodium 9 mg 03/11/24 17:00 03/13/24 17:40 Warfarin (*Pbkc) 3 Mg Tablet PO 9 mg DAILY@1700 IAN Administration Warfarin Sodium 5 mg 03/21/24 17:00 Warfarin (*Pbkc) 5 Mg Tablet PO 03/21/24 17:01 ONCE ONE Radiology Results: ITS Impressions Chest X-Ray 03/20/24 06:33 IMPRESSION: No acute cardiopulmonary process or significant change since 03/18/2024 Chest/Abdomen/Pelvis CT 03/21/24 12:36 IMPRESSION: CHEST: 1. No acute cardiopulmonary pathology. 2. Compression fracture of T6. MRI evaluation advised. ABDOMEN/PELVIS: 1. Hematoma in the left anterior abdominal wall. 2. Constipation. Labs Labs: Laboratory Results - last 24 hr 03/20/24 03/20/24 03/21/24 16:55 20:25 06:09 WBC 12.2 H RBC 3.03 L Hgb 10.0 L Hct 32.1 L MCV 105.9 H MCH 33.0 MCHC 31.2 L RDW 13.8 Plt Count 228 MPV 14.1 H % Immature Plt Fraction 15.2 H PT INR Sodium 131 L Potassium 4.5 Chloride 97 L Carbon Dioxide 28 Anion Gap 6 BUN 23 H Creatinine 1.29 H Estim Creat Clear Calc 33 Estimated GFR 40 L Glucose 154 H POC Capillary Glucose 198 H 169 H Calcium 8.8 Total Bilirubin 0.7 AST 30 ALT 22 Alkaline Phosphatase 95 Total Protein 6.0 L Albumin 2.8 L 03/21/24 03/21/24 06:11 07:36 WBC RBC Hgb Hct MCV MCH MCHC RDW Plt Count MPV % Immature Plt Fraction PT 32.1 H INR 3.1 Sodium Potassium Chloride Carbon Dioxide Anion Gap BUN Creatinine Estim Creat Clear Calc Estimated GFR Glucose POC Capillary Glucose 168 H Calcium Total Bilirubin AST ALT Alkaline Phosphatase Total Protein Albumin Quality VTE Prophylaxis VTE prophylaxis: pharmacologic ordered Hospitalist MIPS Advance Care Plan I have confirmed that the patient's Advanced Care Plan is present, code status is documented, or surrogate decision maker is listed in patient medical record.: Yes Medication Reconciliation I have utilized all available resources to obtain, update and review the patients current medications (includes all prescriptions, OTC, herbals, cannabis, and nutritional supplements).: Yes
[2024-03-21] MEDS: WARFARIN (*PBKC) 5 MG TABLET PO (16:43)
[2024-03-21] MEDS: MELATONIN 5 MG TABLET PO (20:40)
[2024-03-21] MEDS: SIMVASTATIN 10 MG TABLET PO (20:40)
[2024-03-21] MEDS: POTASSIUM CHLORIDE 10 MEQ ER TABLET PO (20:41)
[2024-03-22] VITALS (18 sets, daily range): BP systolic 108–122; BP diastolic 55–72; PULSE 80–130; RESP 16–20; TEMP 36.4–37.2; O2SAT 94–100
[2024-03-22 07:06] LABS: Hematocrit 28.8 % (37.0-47.0); Immature Platelet Fraction Pct 13.1 % (0.9-11.2); Mean Corpuscular HGB Conc 31.3 g/dl (32-36); Mean Corpuscular Hemoglobin 32.7 pg (26-34); Mean Corpuscular Volume 104.7 fl (80-100); Mean Platelet Volume 13.1 fl (7.4-10.4); Platelet Count Result 228 k/mm3 (150-375); Red Blood Count 2.75 M/mm3 (4.2-5.4); Red Cell Distribution Width 13.7 % (11.5-14.5); White Blood Count 10.8 K/mm3 (4.5-10.0)
[2024-03-22 07:38] LABS: Alanine Aminotransferase 24 U/L (6-35); Albumin Level 2.9 g/dL (3.5-5.1); Alkaline Phosphatase 95 U/L (38-126); Anion Gap 5 mmol/L (4-12); Aspartate Amino Transferase 37 U/L (14-36); Bilirubin,Total 0.6 mg/dL (0.2-1.3); Blood Urea Nitrogen 28 mg/dL (7-17); Calcium 8.6 mg/dL (8.4-10.2); Carbon Dioxide 31 mmol/L (22-30); Chloride 96 mmol/L (98-107); Estimated CRCL calculation 31 ml/min; Estimated Glomerular Filt Rate 37; Glucose 108 mg/dL (65-110); Potassium 3.6 mmol/L (3.4-5.0); Sodium 132 mmol/L (137-145)
[2024-03-22 07:46] LABS: Prothrombin Time 31.6 Seconds (11.1-14.7)
--- NOTE | 2024-03-22 07:59 | P.PNCA_ITS ---
Progress Note: A&P Assessment and Plan (1) Systolic dysfunction: Code(s): I51.9 - Heart disease, unspecified Status: Acute Assessment and Plan: Moderate with EF 35-40% and was 45%. Euvolemic on Lasix. Obtain lexiscan myoview today. If negative, no further cardiac workup is needed. (2) Mechanical heart valve present: Code(s): Z95.2 - Presence of prosthetic heart valve Status: Acute Assessment and Plan: On Warfarin normally to keep INR 2.5-3.0 and managed by her PCP. On Lovenox currently while in hospital. Eventually needs to be transitioned back to Warfarin upon discharge. (3) Atrial fibrillation: Code(s): I48.91 - Unspecified atrial fibrillation Status: Acute Assessment and Plan: Controlled now, but rate fluctuates here up to 160's bpm which could be due to volume depletion/anemia/pain. Normally she is not very fast on low dose Metoprolol 12.5 mg daily. Normally on Warfarin as per treatment for mechanical AVR. On Metoprolol 50 mg TID. (4) Hyperlipidemia: Qualifiers: Hyperlipidemia type: mixed hyperlipidemia Qualified Code(s): E78.2 - Mixed hyperlipidemia Code(s): E78.5 - Hyperlipidemia, unspecified Status: Acute Assessment and Plan: On Simvastatin. (5) HTN (hypertension): Qualifiers: Hypertension type: primary hypertension Qualified Code(s): I10 - Essential (primary) hypertension Code(s): I10 - Essential (primary) hypertension Status: Acute Assessment and Plan: Stable. (6) LBBB (left bundle branch block): Code(s): I44.7 - Left bundle-branch block, unspecified Status: Acute (7) Elevated troponin: Code(s): R77.8 - Other specified abnormalities of plasma proteins Status: Inactive Assessment and Plan: Flat and slightly elevated at .055. Could be related to demand ischemia from intermittent rapid HR/CKD/anemia. Subjective Date/time seen: 03/22/24 07:59 Interval history: She is having some pain in lower back. No chest pain or sob. Exam Const: General: cooperative, healthy appearing and comfortable Orientation/consciousness: oriented to person, oriented to place and oriented to time Resp: Auscultation: clear to auscultation bilaterally, no crackles, no rales, no rhonchi and no wheezes Cardio: Rate: regular rate Rhythm: abnormal rhythm Heart sounds: Clicking heart sound present (S2) and no murmurs Peripheral pulses: dorsalis pedis present GI: GI Palp: No abdominal tenderness and Yes Soft to palpation Neuro: General: oriented to person, oriented to place and oriented to time Extrem: Right lower extremity: no edema Left lower extremity: no edema Objective Data Vital Signs Vital Signs: Vital Signs - 24 hr 03/21/24 08:00 03/21/24 10:30 03/21/24 10:45 Temperature Pulse Rate 124 H 122 H Respiratory Rate Blood Pressure Pulse Oximetry 91 Oxygen Delivery Nasal Cannula Oxygen Flow Rate 3 03/21/24 12:00 03/21/24 12:42 03/21/24 12:44 Temperature 98.1 F Pulse Rate 89 89 88 Respiratory Rate 20 Blood Pressure 114/71 Pulse Oximetry 98 Oxygen Delivery Oxygen Flow Rate 03/21/24 16:00 03/21/24 16:44 03/21/24 20:00 Temperature Pulse Rate 90 87 87 Respiratory Rate Blood Pressure Pulse Oximetry Oxygen Delivery Oxygen Flow Rate 03/21/24 20:41 03/21/24 22:00 03/22/24 00:00 Temperature 98.3 F Pulse Rate 88 87 Respiratory Rate 22 H Blood Pressure 95/65 L Pulse Oximetry 100 100 Oxygen Delivery Nasal Cannula Oxygen Flow Rate 3 03/22/24 04:00 03/22/24 06:00 Temperature 99.0 F Pulse Rate 89 100 Respiratory Rate 20 Blood Pressure 111/55 L Pulse Oximetry 100 Oxygen Delivery Oxygen Flow Rate Intake/Output Intake/Output: Intake & Output 03/19/24 03/20/24 03/21/24 03/22/24 23:59 23:59 23:59 23:59 Intake Total 924 098 9614 200 Output Total 450 750 800 Balance -130 -270 270 200 Meds/Results Medications: Active Medications Generic Name Dose Route Start Last Admin Trade Name Freq PRN Reason Stop Dose Admin Acetaminophen 1,000 mg 03/10/24 10:04 03/19/24 09:01 Acetaminophen 500 Mg Tablet PO 1,000 mg Q6H PRN Administration Mild Pain (1-3) or Fever Hydrocodone Bitart/Acetaminophen 1 tab 03/08/24 17:21 03/21/24 16:43 Hydrocodone/Acetaminophen (*Crx) 5-325 Mg Tablet PO 1 tab Q6H PRN Administration Pain Rated 4-6 Albuterol 2 puff 03/08/24 17:21 Albuterol Sulfate (*Sp) Aerosol 1 Puff INHALATION QID PRN Shortness Of Breath Alprazolam 0.25 mg 03/08/24 17:21 03/20/24 21:42 Alprazolam (*Crx) 0.25 Mg Tablet PO 0.25 mg HS PRN Administration Anxiety Benzocaine 1 lozenge 03/10/24 18:17 03/16/24 08:17 Benzocaine/Menthol (*Bkc) 18 Ea Lozenge PO 1 lozenge PRN PRN Administration Sore Throat Cyanocobalamin 1,000 mcg 03/09/24 09:00 03/21/24 10:46 Cyanocobalamin 1,000 Mcg Tablet PO 1,000 mcg DAILY IAN Administration Cyclobenzaprine HCl 5 mg 03/19/24 14:03 03/20/24 15:42 Cyclobenzaprine Hcl 5 Mg Tablet PO 5 mg Q8H PRN Administration Muscle Spasm Diclofenac Sodium 1 applic 03/10/24 10:04 03/19/24 18:33 Diclofenac Sodium 1% 100 Gm Gel (*Bkc) TOPICAL 1 applic QID PRN Administration joint pain Diclofenac Sodium 1 applic 03/19/24 17:00 03/21/24 20:43 Diclofenac Sodium 1% 100 Gm Gel (*Bkc) TOPICAL 1 applic QID IAN Administration Furosemide 20 mg 03/16/24 09:00 03/22/24 07:47 Furosemide 20 Mg Tablet PO Not Given DAILY IAN Gabapentin 300 mg 03/08/24 21:00 03/21/24 20:40 Gabapentin 300 Mg Capsule PO 300 mg Q12HR IAN Administration Guaifenesin 1,200 mg 03/13/24 12:50 03/21/24 20:41 Guaifenesin 12 Hr 600 Mg Tabcr PO 1,200 mg Q12HR IAN Administration Guaifenesin/Dextromethorphan 10 ml 03/11/24 23:14 03/14/24 07:53 Guaifenesin/Dextromethorphan 10 Ml Udc PO 10 ml Q4H PRN Administration Cough Hydromorphone HCl 0.2 mg 03/21/24 11:31 03/21/24 11:54 Hydromorphone Hcl Inj (*Crx) 1 Mg/Ml Syr IV PUSH 0.2 mg Q6H PRN Administration Pain Rated 7-10 Melatonin 5 mg 03/15/24 21:00 03/21/24 20:40 Melatonin 5 Mg Tablet PO 5 mg HS [facility] Administration Methimazole 5 mg 03/09/24 09:00 03/21/24 10:46 Methimazole 5 Mg Tab PO 5 mg DAILY IAN Administration Metoprolol Tartrate 50 mg 03/21/24 09:00 03/21/24 16:44 Metoprolol Tartrate 50 Mg Tab PO 50 mg TID IAN Administration Cinacalcet 15 Mg 0 each 03/10/24 09:00 03/21/24 10:42 Tablet PO 04/09/24 08:59 1 each DAILY [facility] Administration Pantoprazole Sodium 40 mg 03/09/24 09:00 03/21/24 10:46 Pantoprazole 40 Mg Tablet PO 40 mg QAM [facility] Administration Potassium Chloride 10 meq 03/08/24 21:00 03/21/24 20:41 Potassium Chloride 10 Meq Er Tablet PO 10 meq HS [facility] Administration Simvastatin 10 mg 03/08/24 21:00 03/21/24 20:40 Simvastatin 10 Mg Tablet PO 10 mg HS [facility] Administration Venlafaxine HCl 150 mg 03/09/24 09:00 03/21/24 10:45 Venlafaxine Hcl Xr 75 Mg Cap.Er.24h PO 150 mg DAILY IAN Administration Vitamin D 1,000 units 03/09/24 09:00 03/21/24 10:45 Cholecalciferol 1,000 Units Tablet PO 1,000 units DAILY IAN Administration Warfarin Sodium 9 mg 03/11/24 17:00 03/13/24 17:40 Warfarin (*Pbkc) 3 Mg Tablet PO 9 mg DAILY@1700 [facility] Administration Radiology Results: ITS Impressions Chest X-Ray 03/20/24 06:33 IMPRESSION: No acute cardiopulmonary process or significant change since 03/18/2024 Chest/Abdomen/Pelvis CT 03/21/24 12:36 IMPRESSION: CHEST: 1. No acute cardiopulmonary pathology. 2. Compression fracture of T6. MRI evaluation advised. ABDOMEN/PELVIS: 1. Hematoma in the left anterior abdominal wall. 2. Constipation. Labs Labs: Laboratory Results - last 24 hr 03/21/24 03/22/24 06:09 06:31 WBC 12.2 H 10.8 H RBC 3.03 L 2.75 L Hgb 10.0 L 9.0 L Hct 32.1 L 28.8 L MCV 105.9 H 104.7 H MCH 33.0 32.7 MCHC 31.2 L 31.3 L RDW 13.8 13.7 Plt Count 228 228 MPV 14.1 H 13.1 H % Immature Plt Fraction 15.2 H 13.1 H PT 31.6 H INR 3.0 Sodium 131 L 132 L Potassium 4.5 3.6 Chloride 97 L 96 L Carbon Dioxide 28 31 H Anion Gap 6 5 BUN 23 H 28 H Creatinine 1.29 H 1.39 H Estim Creat Clear Calc 33 31 Estimated GFR 40 L 37 L Glucose 154 H 108 Calcium 8.8 8.6 Total Bilirubin 0.7 0.6 AST 30 37 H ALT 22 24 Alkaline Phosphatase 95 95 Total Protein 6.0 L 6.0 L Albumin 2.8 L 2.9 L
--- NOTE | 2024-03-22 08:00 | EST_ITS ---
Patient Info Name: Radha Huynh Age: 78 years : 1945 Gender: Female Ht: 63 in Wt: 178 lbs BSA: 1.92 m2 HR: 88 bpm BP: 116 / 59 mmHg Exam Date: 03/22/2024 11:31 AM Exam Location: Echo Lab Patient Status: Inpatient Admit Date: 03/09/2024 Staff Ordering Physician: Emil Farrell DO Attending Provider: Amarilis Piña Exercise Technologist: Lupe Nolan RDCS Exercise Physician: Emil Farrell DO Exam Type: CA stress gricelda w NM Study Info A regadenoson stress test was performed. Summary 1. 1. Inconclusive lexiscan stress test for ischemic ST changes by ECG criteria due to baseline LBBB. 2. 2. Stable hemodynamics throughout the test. 3. 3. Nuclear scan to follow and will be reported separately. Please correlate with it. 4. 4. Patient informed of the above results. Protocol: Lexiscan Stress ECG Details Stage: REST Duration (min): 1 min : 15 sec HR (bpm): 88 SBP (mmHg): 116 DBP (mmHg): 59 Stage: REST Duration (min): 7 min : 37 sec HR (bpm): 84 SBP (mmHg): 116 DBP (mmHg): 59 Stage: STAGE 1 Duration (min): 1 min : 0 sec HR (bpm): 89 SBP (mmHg): 126 DBP (mmHg): 63 Stage: RECOVERY Duration (min): 1 min : 0 sec HR (bpm): 93 SBP (mmHg): 126 DBP (mmHg): 63 Stage: RECOVERY Duration (min): 2 min : 0 sec HR (bpm): 89 SBP (mmHg): 126 DBP (mmHg): 63 Stage: RECOVERY Duration (min): 3 min : 0 sec HR (bpm): 95 SBP (mmHg): 131 DBP (mmHg): 59 Stage: RECOVERY Duration (min): 4 min : 0 sec HR (bpm): 94 SBP (mmHg): 131 DBP (mmHg): 59 Stage: RECOVERY Duration (min): 5 min : 0 sec HR (bpm): 95 SBP (mmHg): 117 DBP (mmHg): 61 Stage: RECOVERY Duration (min): 6 min : 0 sec HR (bpm): 95 SBP (mmHg): 117 DBP (mmHg): 61 Stage: RECOVERY Duration (min): 6 min : 33 sec HR (bpm): 95 SBP (mmHg): 113 DBP (mmHg): 58 Rest HR: 84 bpm Peak HR: 96 bpm Rest Sys BP: 116 mmHg Peak Sys BP: 131 mmHg Max Pred HR: 141 bpm % Max Pred HR: 68 % Target HR: 120 bpm Max RPP: 12,576 bpm*mmHg Termination Reason: Completed protocol Cardiac Symptoms: Shortness of breath Total Time: 1 min : 0 sec Rest Woods BP: 59 mmHg Peak Woods BP: 59 mmHg Total Dose: 0.4 mg Aminophylline Dose: 100 mg Resting ECG Ectopic atrial rhythm, LBBB. Stress ECG No ST changes. Given intolerable symptoms of sob, patient given Aminophylline 100 mg IV x1. Arrhythmias None. Report Signatures
[2024-03-22] MEDS: guaiFENesin 12 HR 600 MG TABCR 1200 MG PO ×2 (09:13→20:36)
[2024-03-22] MEDS: DICLOFENAC SODIUM 1% 100 GM GEL (*BKC) 1 APPLIC TOPICAL ×5 (09:14→20:37)
[2024-03-22] MEDS: METOPROLOL TARTRATE 50 MG TAB PO ×3 (09:19→18:00)
--- NOTE | 2024-03-22 09:20 | ECG_ITS ---
Test Date: 2024-03-22 09:30:28 Measurements Intervals [place] Rate: 124 P: 0 [place]: 0 QRS: -37 QRSD: 144 T: 130 QT: 331 QTc: 477 Interpretive Statements ATRIAL FIBRILLATION WITH RAPID VENTRICULAR RESPONSE LEFT AXIS DEVIATION [QRS AXIS < -30] LEFT BUNDLE BRANCH BLOCK [120+ ms QRS DURATION, 80+ ms Q/S IN V1/V2, 85+ ms R IN I/aVL/V5/V6] Compared to ECG 03/20/2024 03:59:32 NO SIGNIFICANT CHANGES Electronically Signed On 03-22-2024 15:24:35 [employer]LECT[employer]CH[employer]IC by To Burns M.D.
[2024-03-22] MEDS: PANTOPRAZOLE 40 MG TABLET PO (09:23)
[2024-03-22] MEDS: VENLAFAXINE HCL XR 75 MG CAP.ER.24H 150 MG PO (09:23)
[2024-03-22] MEDS: GABAPENTIN 300 MG CAPSULE PO ×2 (09:23→20:36)
[2024-03-22] MEDS: CYANOCOBALAMIN 1,000 MCG TABLET 1000 MCG PO (09:23)
[2024-03-22] MEDS: methiMAzole 5 MG TAB PO (09:24)
[2024-03-22] MEDS: CHOLECALCIFEROL 1,000 UNITS TABLET 1000 UNITS PO (09:24)
[2024-03-22] MEDS: HYDROcodone/acetaminophen (*CRX) 5-325 MG TABLET 1 TAB PO (09:33)
[2024-03-22] MEDS: CINACALCET PO (09:47)
--- NOTE | 2024-03-22 11:32 | P.CONGS_ITS ---
Assessment and Plan Assessment and plan (1) Hematoma of abdominal wall: Qualifiers: Encounter type: initial encounter Qualified Code(s): S30.1XXA - Contusion of abdominal wall, initial encounter Code(s): S30.1XXA - Contusion of abdominal wall, initial encounter Status: Acute Assessment and Plan: * Patient has a small subcutaneous hematoma of the left mid abdominal wall on CT. She has been over anticoagulated and this is likely related to her subcutaneous Lovenox injections, which have been stopped. She is not having any pain. The overlying skin appears intact and there is no signs of infection. No indication for surgical intervention. This area can be monitored, and I discussed with the patient that this typically resolves with time. (2) History of mechanical aortic valve replacement: Onset Date: 2003 Code(s): Z95.2 - Presence of prosthetic heart valve Status: Acute (3) Current use of termination clerk anticoagulation: Code(s): Z79.01 - detention (current) use of anticoagulants Status: Acute (4) Paroxysmal A-fib: Code(s): I48.0 - Paroxysmal atrial fibrillation Status: Acute (5) Congestive heart failure: Code(s): I50.9 - Heart failure, unspecified Status: Acute (6) Anemia: Code(s): D64.9 - Anemia, unspecified Status: Acute (7) Chronic kidney disease, stage 3b: Code(s): N18.32 - Chronic kidney disease, stage 3b Status: Acute (8) Type 2 diabetes mellitus: Code(s): E11.9 - Type 2 diabetes mellitus without complications Status: Acute (9) Pneumonia: Code(s): J18.9 - Pneumonia, unspecified organism Status: Acute (10) COPD (chronic obstructive pulmonary disease): Code(s): J44.9 - Chronic obstructive pulmonary disease, unspecified Status: Chronic Plan I have discussed the patient's case and plan of care with Dr. Salcido. History of Present Illness Consult details Consult date: 03/22/24 Reason for consult: other (Left anterior abdominal wall hematoma) Requesting physician: Raz Tuttle MD Narrative: This is a 78-year-old woman with multiple medical problems who presented to the ED about 2 weeks ago with complaints of palpitations. She has been admitted and treated for a fib with RVR, pneumonia, and a CHF exacerbation. She additionally has a history of a mechanical aortic valve replacement in 2009 on warfarin. Her warfarin had been held at some point during this admission and she was given subcutaneous Lovenox injections as a bridge. She has been on therapeutic dosed Lovenox injections since 03/13/2024, which was eventually stopped yesterday. There was concern of an abdominal wall hematoma and she had a CT scan of the chest, abdomen, and pelvis yesterday that showed a 3 x 2.5 cm soft tissue density in the left anterior abdominal wall suggestive of a hematoma. Also noted is constipation and a compression fracture of T6, MRI evaluation advised. Our service was consulted for the abdominal wall hematoma and she is now seen on the medical floor. Her only complaint this morning is lower back pain. Her INR today is 3.0. Her Lovenox has been stopped, and warfarin on hold. She denies any abdominal pain. Review of Systems 2 Review of Systems: All systems reviewed & are unremarkable except as noted in HPI and below Gastrointestinal: Gastrointestinal: Reports as per HPI and Reports no additional gastrointestinal complaints Comments: Denies any falls or trauma to the abdomen, other than the subQ injections she has been receiving. [facility] Past Medical History Medical History Irritable bowel syndrome Gallbladder disorder Arthritis Vitamin B12 deficiency Atrial fibrillation with slow ventricular response Chronic kidney disease, stage 3b Chronic kidney disease Baseline creatinine is around 1.50. Restless leg syndrome Congestive heart failure Echocardiogram in March 2021 showed normal FVC size, moderate LVH, borderline LV systolic function with an EF of 50 to 55%, and grade 1 diastolic dysfunction. Depression with anxiety Degenerative joint disease Burst fracture of thoracic vertebra Kidney stone Obstructive sleep apnea on CPAP Diverticulitis Hypertension Type 2 diabetes mellitus Chronic obstructive pulmonary disease Patient had a pulmonary function test on 02/24/2020 which was suggestive of COPD. Chronic anticoagulation Paroxysmal atrial fibrillation On amiodarone therapy Depression Hyperlipidemia Herniated disc Surgical History Surgical History History of right knee surgery Ligamentous repair. History of bilateral cataract extraction History of mechanical aortic valve replacement (2003) [facility] valve. History of ankle surgery ORIF left ankle fracture. History of hysterectomy Family History Family History Mother Family history of cardiovascular disease Family history of arthritis CHF (congestive heart failure) Depression Family history of coronary artery disease Father Family history of cardiovascular disease Diabetes mellitus Family history of arthritis Acute myocardial infarction Family history of diabetes mellitus in first degree relative Sibling , cancer Family history of arthritis Malignant neoplasm of prostate Sibling Family history of arthritis Malignant neoplasm of prostate Social History Social History Social History: The patient is and lives in her own home with her small dog. 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 No alcohol or illicit drug use. Surrogate decision maker: Shannon Coterachelle, sister. Code status: Full code. Smoking status: Never smoker Second hand tobacco smoke exposure: No Alcohol intake: never Substance use: never Substance use type: does not use Do You Feel Safe in your Home?: Yes Lack of Transportation: YES Lack of Food: Never True Current Housing: I Have Housing Concerned About Future Housing: No Difficulty Paying Gas/Electric Bills: No Difficulty Paying for Meds: No Currently Unemployed: No Education: Grade School Difficulty w/ Childcare or Family Care: No Living arrangements: alone Occupation/Education: retired Additional gender identity comments: [employer] work Spiritual care concerns: No Agree to blood products: Yes Meds Home Medications and Allergies Home Medications ?Medication ?Instructions ?Recorded ?Confirmed ?Type albuterol sulfate 90 mcg/actuation 2 puff inhalation QID PRN 01/09/19 03/08/24 History aerosol inhaler Shortness Of Breath gabapentin 300 mg capsule 300 mg PO Q12H 01/09/19 03/08/24 History venlafaxine 150 mg 150 mg PO DAILY 01/09/19 03/08/24 History capsule,extended release 24 hr furosemide 20 mg tablet 20 mg PO DAILY 03/18/22 03/08/24 History potassium chloride 10 mEq 10 meq PO HS 03/18/22 03/08/24 History tablet,extended release cholecalciferol (vitamin D3) 1,000 units PO DAILY 08/23/23 03/08/24 History simvastatin 10 mg PO HS 08/23/23 03/08/24 History cyanocobalamin (vitamin B-12) 1,000 mcg PO DAILY #30 caps 08/26/23 03/08/24 Rx 1,000 mcg capsule metoprolol succinate 25 mg 12.5 mg (1/2 x 25 mg) PO DAILY #30 08/26/23 03/08/24 Rx tablet,extended release 24 hr tabs alprazolam 0.5 mg tablet 0.25 mg PO HS PRN Anxiety 11/01/23 03/08/24 History hydrocodone 5 mg-acetaminophen 325 1 - 2 tablet PO Q6H PRN Pain 11/01/23 03/08/24 History mg tablet omeprazole 40 mg capsule,delayed 40 mg PO DAILY 11/01/23 03/08/24 History release semaglutide 0.25 mg or 0.5 mg (2 0.5 mg subcut WEEKLY 11/12/23 03/08/24 History mg/3 mL) subcutaneous pen injector ([employer]) cinacalcet 30 mg tablet 15 mg PO DAILY 12/13/23 03/08/24 History methimazole 5 mg tablet 5 mg PO DAILY 12/13/23 03/08/24 History warfarin 6 mg tablet 6 mg PO DAILY 03/08/24 03/08/24 History Allergies Allergy/AdvReac Type Severity Reaction Status Date / Time adhesive tape Allergy Intermediate Blister Verified 03/07/24 15:30 cortisone Allergy Intermediate Rash Verified 03/07/24 15:30 bacitracin Allergy Mild Rash Verified 03/07/24 15:30 neomycin Allergy Mild Rash Verified 03/07/24 15:30 polymyxin B Allergy Mild Rash Verified 03/07/24 15:30 Vital Signs Vital Signs - 24 hr 03/21/24 12:00 03/21/24 12:42 03/21/24 12:44 Temperature 98.1 F Pulse Rate 89 89 88 Respiratory Rate 20 Blood Pressure 114/71 Pulse Oximetry 98 Oxygen Delivery Oxygen Flow Rate 03/21/24 16:00 03/21/24 16:44 03/21/24 20:00 Temperature Pulse Rate 90 87 87 Respiratory Rate Blood Pressure Pulse Oximetry Oxygen Delivery Oxygen Flow Rate 03/21/24 20:41 03/21/24 22:00 03/22/24 00:00 Temperature 98.3 F Pulse Rate 88 87 Respiratory Rate 22 H Blood Pressure 95/65 L Pulse Oximetry 100 100 Oxygen Delivery Nasal Cannula Oxygen Flow Rate 3 03/22/24 04:00 03/22/24 06:00 03/22/24 09:19 Temperature 99.0 F Pulse Rate 89 100 130 H Respiratory Rate 20 Blood Pressure 111/55 L Pulse Oximetry 100 Oxygen Delivery Oxygen Flow Rate Exam 2 Const: General: comfortable and no acute distress Nutritional Appearance: a verage body habitus Orientation/consciousness: patient oriented x3 HENMT: Head: normocephalic and atraumatic Ears: hearing grossly normal bilaterally Mouth: Yes moist mucous membranes Eyes: General: appearance normal, both eyes and all related structures P upils: Equal, round and reactive pupils present Neck: Neck: normal visual inspection and full ROM Chest: Other: midsternal scar Resp: Effort & Inspection: no respiratory distress Auscultation: clear to auscultation bilaterally Cardio: Rate: tachycardic Rhythm: abnormal rhythm irregularly irregular GI: Inspection: non-distended GI Palp: Yes Soft to palpation, No Tenderness to palpation present (GI), No Guarding due to palpation present (GI), Yes Hernia present (epigastric hernia at the bottom of her sternal scar which is reduced/soft) and No Rebound tenderness present Auscultation: normal bowel sounds Abdomen image: 1. Small 2-3 cm firm hematoma palpable in the left mid abdomen c/w the location of the soft tissue density on CT, nontender. There is ecchymosis in this location that spreads diffusely inferior and laterally to dependent areas Skin: General skin exam: ecchymosis (LLQ of abdomen extending inferiorly and laterally) Neuro: General: moves all extremities and no focal motor deficits Speech: n ormal speech Extrem: General: normal to inspection and no edema Psych: Mental Status: mental status grossly normal Attitude: cooperative Insight: Good insight present (Psych) Judgement: Good judgement present (Psych) Results Labs 03/22/24 06:31 03/22/24 06:31 Labs: Abnormal lab results 03/22/24 Range/Units 06:31 WBC 10.8 H (4.5-10.0) K/mm3 RBC 2.75 L (4.2-5.4) M/mm3 Hgb 9.0 L (12.0-15.0) g/dL Hct 28.8 L (37.0-47.0) % MCV 104.7 H (80-100) fl MCHC 31.3 L (32-36) g/dl MPV 13.1 H (7.4-10.4) fl % Immature Plt Fraction 13.1 H (0.9-11.2) % PT 31.6 H (11.1-14.7) Seconds Sodium 132 L (137-145) mmol/L Chloride 96 L (98-107) mmol/L Carbon Dioxide 31 H (22-30) mmol/L BUN 28 H (7-17) mg/dL Creatinine 1.39 H (0.7-1.0) mg/dL Estimated GFR 37 L (59 - ) AST 37 H (14-36) U/L Total Protein 6.0 L (6.3-8.2) g/dL Albumin 2.9 L (3.5-5.1) g/dL Diabetes panel 03/22/24 Range/Units 06:31 Sodium 132 L (137-145) mmol/L Potassium 3.6 (3.4-5.0) mmol/L Chloride 96 L (98-107) mmol/L Carbon Dioxide 31 H (22-30) mmol/L BUN 28 H (7-17) mg/dL Creatinine 1.39 H (0.7-1.0) mg/dL Glucose 108 (65-110) mg/dL Calcium 8.6 (8.4-10.2) mg/dL AST 37 H (14-36) U/L ALT 24 (6-35) U/L Alkaline Phosphatase 95 (38-126) U/L Total Protein 6.0 L (6.3-8.2) g/dL Albumin 2.9 L (3.5-5.1) g/dL Calcium panel 03/22/24 Range/Units 06:31 Calcium 8.6 (8.4-10.2) mg/dL Albumin 2.9 L (3.5-5.1) g/dL Pituitary panel 03/22/24 Range/Units 06:31 Sodium 132 L (137-145) mmol/L Potassium 3.6 (3.4-5.0) mmol/L Chloride 96 L (98-107) mmol/L Carbon Dioxide 31 H (22-30) mmol/L BUN 28 H (7-17) mg/dL Creatinine 1.39 H (0.7-1.0) mg/dL Glucose 108 (65-110) mg/dL Calcium 8.6 (8.4-10.2) mg/dL Adrenal panel 03/22/24 Range/Units 06:31 Sodium 132 L (137-145) mmol/L Potassium 3.6 (3.4-5.0) mmol/L Chloride 96 L (98-107) mmol/L Carbon Dioxide 31 H (22-30) mmol/L BUN 28 H (7-17) mg/dL Creatinine 1.39 H (0.7-1.0) mg/dL Glucose 108 (65-110) mg/dL Calcium 8.6 (8.4-10.2) mg/dL Total Bilirubin 0.6 (0.2-1.3) mg/dL AST 37 H (14-36) U/L ALT 24 (6-35) U/L Alkaline Phosphatase 95 (38-126) U/L Total Protein 6.0 L (6.3-8.2) g/dL Albumin 2.9 L (3.5-5.1) g/dL All other labs normal. Imaging Additional studies: ITS Impressions Chest X-Ray 03/07/24 16:32 IMPRESSION: 1. No acute cardiopulmonary disease. Chest X-Ray 03/08/24 19:52 IMPRESSION: New subsegmental left basilar opacities likely represent atelectasis. Infection not excluded. Small left and trace right pleural effusions. Chest X-Ray 03/10/24 15:01 IMPRESSION: Persisting cardiomegaly with possible left lower lobe infiltrate, as detailed above. Chest X-Ray 03/18/24 16:45 IMPRESSION: No acute cardiopulmonary process. Chest X-Ray 03/20/24 06:33 IMPRESSION: No acute cardiopulmonary process or significant change since 03/18/2024 Chest/Abdomen/Pelvis CT 03/21/24 12:36 IMPRESSION: CHEST: 1. No acute cardiopulmonary pathology. 2. Compression fracture of T6. MRI evaluation advised. ABDOMEN/PELVIS: 1. Hematoma in the left anterior abdominal wall. 2. Constipation.
[2024-03-22] MEDS: polyethylene glycoL 3350 17 GM POWD.PACK PO (12:52)
[2024-03-22] MEDS: ACETAMINOPHEN 500 MG TABLET 1000 MG PO (12:56)
--- NOTE | 2024-03-22 13:20 | P.PNIM_ITS ---
Progress Note: A&P Assessment and Plan (1) Mechanical heart valve present: Code(s): Z95.2 - Presence of prosthetic heart valve Status: Acute Assessment and Plan: 03/21 : I assumed care today. Patient INR is 3.1. Patient target INR is 2.5-3. Currently warfarin is on hold. Patient is also on Lovenox 80 mg b.i.d.. Since patient is already over therapeutic INR and in spite of receiving Lovenox makes her over anticoagulated. So today discontinued Lovenox. Given her warfarin 5 mg x 1 and possibly restart her home warfarin dosage 9mg from tomorrow. I performed CT chest/abdomen/pelvis which shows hematoma in the left anterior abdominal wall 3 x 2.5 cm. Discussed the goal of care with the nursing team. Patient wants some time to decide on her code status. 03/22: Surgery evaluated the patient under report overlying skin appears intact and there is no signs of infection. No indication for surgical intervention at this time. Patient has some cough and congestion. Patient is already on Mucin ex, cornet. Ordered Xopenex around the clock for 2 days and Mucomyst b.i.d.. Discussed with the pharmacist and resume her home dose 6 mg not the 9 mg from today. Patient underwent a Lexiscan today Audible mechanical heart valve. INR subtherapeutic for several days, 1.5, 1.4, 1 today. Next of Kin, PCP manages INR and warfarin doses for her. Next of Kin, Anshul coordinates with the office. The last 2 weeks before admission she was taking 6 mg thursday-, 5mg thursday, sat, sun. Generally has INR checks ever 2 weeks Goal INR 2.5-3.5 with her mechanical valve. Izzy reports 9mg daily is a higher dose than she has needed previously --Started a heparin drip with a bolus for subtherapeutic INR --Follow CBC since trending down but may be dilutional. Stable overnight --Warfarin 8mg<9mg daily --Daily INR, closer to goal --Coordinate INR checks & follow up plan with PCP's office, Dr. Sanjeev Rosenberg 03/07 1.5 03/08 Warfarin 6mg 03/09 1.4 Warfarin 6mg 03/10 1 Warfarin 8mg 03/11 1.7 Warfarin 9mg 03/12 2.1 & 2.2 Warfarin 9mg (lab said it was likely run twice for a precision check) 03/14: * 3.9 - Will hold tonight's dose. * Continue to trend daily INR's * Therapeutically dosed Lovenox is discontinued at this time as pt has been receiving it as a bridge. 03/15 * INR 4.1 * Continue to hold Warfarin * Continue to trend daily INR * Reports passing a small amount of bright red blood today after bowel movement * Continue to monitor. * Patient on Augmentin which can make therapeutic trend challenging 03/16 * INR 3.9 * Continue to hold Warfarin 03/17 * INR 3.3 * Continue to hold Warfarin 03/18 * INR 3.4 * Continue to hold Warfarin for now 03/19 * INR 3.5 * Continue to hold warfarin 03/20 * INR 3.2 today * Continue to hold Warfarin 03/21 INR 3.1 Discontinue Lovenox due to over anticoagulation Supratherapeutic INR 3.1 Hold warfarin Evidence of hematoma in the left anterior abdominal wall 3 x 2.5 cm (2) Palpitations: Code(s): R00.2 - Palpitations Status: Acute Assessment and Plan: - Likely due to PAF with RVR. - Better after hydration and resuming home meds. 03/14/24 * Rate now controlled significantly better. * Continue Telemetry. * Continue to monitor. 03/15/24 * Rate controlled in the 90's * Discontinue telemetry * Hold Warfarin for supratherapeutic INR 03/16 * Continue to hold Warfarin (3) Acute kidney injury: Code(s): N17.9 - Acute kidney failure, unspecified Status: Acute Assessment and Plan: Ddx pre-renal vs poor PO intake vs meds vs other. s/p 500 bolus with tachycardia --Resumed lasix --Creatinine stable 03/14/24: * Continue Lasix as ordered * Creatinine today 1.2, at baseline. * Continue to trend and monitor. 03/15/23: * Creatinine 1.16 currently at baseline 03/16 * Creatinine 1.33 03/17 * Creatinine 1.41 03/18 * stable, near baseline (4) HTN (hypertension): Qualifiers: Hypertension type: primary hypertension Qualified Code(s): I10 - Essential (primary) hypertension Code(s): I10 - Essential (primary) hypertension Status: Acute Assessment and Plan: - Appears well controlled. - Continue metoprolol, changed from XL to IR for titration - Follow VS 03/14/24: * Continuing to trend and monitor. Stable 03/15/24: * Blood pressures ranging 125/54-150/68 * Continue Metoprolol (5) Hyperlipidemia: Qualifiers: Hyperlipidemia type: mixed hyperlipidemia Qualified Code(s): E78.2 - Mixed hyperlipidemia Code(s): E78.5 - Hyperlipidemia, unspecified Status: Acute Assessment and Plan: * continue simvastatin (6) Shortness of breath: Code(s): R06.02 - Shortness of breath Status: Acute Assessment and Plan: Mildly tachypneic. Not obviously overloaded on exam, likely 2/2 pneumonia --Started heparin drip, if not resolved consider a CT r/o PE, but is on warfarin chronically for mechanical heart valve --Treatment of pneumonia and heart failure, rate control afib --PEP therapy for airway clearance 03/14/24: * Continue Unasyn for underlying cause of PNA. * Wean oxygen for sats >90%. Nursing order placed. * Continue to trend. 03/15/23: * Will change to Augmentin today * Currently on 2L NC * Continue to wean for a saturation greater than 90%. 03/16 * Continue to wean O2 * Currently on 2L NC * lasix 40 mg IVP given today 03/17 * Currently on room air * Will add home dose of 20 mg Lasix oral (7) Anemia: Code(s): D64.9 - Anemia, unspecified Status: Acute Assessment and Plan: Blood count trending down since admission but may be dilutional 14.2>11.1 Iron panel showing iron deficiency anemia, Total Iron and Tsat low. B12 636. LDH 245 --iron sucrose 300mg x3 doses --Follow CBC --If downtrending would need GI consult on chronic anticoagulation 03/14/24: * Hgb further declined today to 10.5. * Small drop, continue to monitor. * Pt just finished her third dose of Venofer. * Occult blood ordered from stool. * Consider GI consult if further declination as she is on chronic anticoagulation. * Pt's INR today is 3.9. Her dose of Coumadin for tonight is held and will need restarted tomorrow if applicable. In addition, the pt's Therapeutically dosed bridge Lovenox is discontinued today. * Monitor for any s/s of acute bleeding. 03/15/23: * Hgb 10.3 today * Patient had 3 doses of Venofer * collect occult blood stool 03/16 * No real change, Hgb 10.9 (8) Heart failure, diastolic, acute on chronic: Code(s): I50.33 - Acute on chronic diastolic (congestive) heart failure Status: Acute Assessment and Plan: 08/24/23 Echo: TDS. EF 45%, biatrial enlargement, suspect (YADIRA 1.4 cm2), mod MR, mild-mod TR. s/p 500ml fluid bolus, now back on IV lasix NT-proBNP 10,000 Resume lasix, 20mg IV daily & increase as able TTE 03/14/24: * Chronic in nature. * Appears euvolemic. * Continue Lasix 03/15/23: * Will increase to 40 mg IVP lasix today * Course bilaterally with peripheral swelling 03/16 * continue Lasix 03/17 * Transition to oral Lasix * Appears euvolemic 03/18 * Flipped into A fib with RVR today * Lungs sounding course * Will repeat CXR now * Last Echo on 03/11/24 shown LVEF of 3-40% 03/19 * Back in NSR * Continue telemetry monitoring * CXR was negative * proBNP elevated, however lung sounds are clear 03/20 * Flipped back into A fib RVR overnight * Repeat EKG showing new LBBB--Cardiology was notified. * Mild troponin bump--likely demand ischemia * Plan for Lexiscan stress test tomorrow to further evaluate (9) Pneumonia: Code(s): J18.9 - Pneumonia, unspecified organism Status: Acute Assessment and Plan: Resolved. Hospital associated pneumonia. Chest x-ray showed possible RLL pneumonia. Has crackles on exam. Intermittent fevers. Resolved today after starting unasyn. On room air --Started Unasyn, change to augmentin if improving --If new oxygen requirements, broaden to Cefepime/Vanc/Flagyl --Also has a sore throat, checking strep culture. Chlorseptic drops & tylenol prn --Urine for strep pneumo --Follow up chest x-ray if new oxygen requirement or not resolving --Staph screen. Can broaden to Cefepime/Vanc if worsening --Sputum culture if able to collect. Would only use to guide treatment if not improving with current antibiotics 03/14/24: * Continue Unasyn. Could likely switch to oral Augmentin tomorrow. 03/15/24: * Unasyn changed to Augmentin 03/18/24 * Augmentin finished today (10) Atrial fibrillation with RVR: Code(s): I48.91 - Unspecified atrial fibrillation Status: Acute Assessment and Plan: Home metoprolol ER 25mg daily Resting HR 70s-90s, 100-130's with activity on 03/10. Rate controlled with increased dose of metoprolol and a 500ml fluid bolus - Change Metoprolol ER 25mg daily to metoprolol tartrate 12.5mg q6 and titrate. 5mg IV metoprolol --INR goal as noted for mechanical heart valve. INR can be affected by antibiotics --Cardiology consulted, appreciate recommendations 03/15/24: * Rate controlled in the 90's * Continue Metoprolol * D/C continuous tele * Hold Warfarin due to supratherapeutic INR 03/17 * Continue to hold Warfarin 03/18 * Went back into Afib RVR today * Continue to hold Warfarin due to supratherapeutic INR * Will increase Metoprolol to 25 mg q6h for better rate control * Continue tele * Cardiology reconsulted * repeating CXR 03/19 * In NSR now, continue Metoprolol 25 mg q6h * Continue tele for now * Cardiology following * CXR negative 03/20 * Flipped back into A fib RVR overnight * Repeat EKG showing new LBBB--Cardiology was notified. * Mild troponin bump--likely demand ischemia * Plan for Lexiscan stress test tomorrow to further evaluate 03/21 Metoprolol tartrate 50 mg p.o. t.i.d. Warfarin 5 mg p.o. q.d. Subjective Date/time seen: 03/22/24 13:20 Interval history: Patient was evaluated by the surgery. Currently her hemoglobin is stable. Will resume the warfarin home dose age 9 mg. Patient has some congestion. Ordered Mucomyst and scheduled Xopenex. Patient wants to stay in full code. Patient underwent Lexiscan today Review of Systems Review of Systems: All systems reviewed & are unremarkable except as noted in HPI and below Constitutional: Constitutional: Reports as per HPI and Reports no additional constitutional complaints Eyes: Eyes: Reports as per HPI and Reports no additional eye complaints ENT: Reports system reviewed and no additional complaints, except as documented and Reports as per HPI Cardiovascular: Cardiovascular: Reports as per HPI and Reports no additional cardiovascular complaints Respiratory: Respiratory: Reports as per HPI and Reports no additional respiratory complaints Gastrointestinal: Gastrointestinal: Reports as per HPI and Reports no additional gastrointestinal complaints Genitourinary: Genitourinary: Reports no additional female genitourinary com plaints and Reports as per HPI Musculoskeletal: Musculoskeletal: Reports no additional musculoskeletal complaints and Reports as per HPI Integumentary/Breasts: Skin/Breast: Reports system reviewed and no additional complaints, except as docu and Reports as per HPI Neurologic: Reports system reviewed and no additional complaints, except as documented and Reports as per HPI Psychiatric: Psychiatric: Reports no additional psychiatric complaints and Reports as per HPI Exam Narrative: General: In no acute distress, well nourished Cardiac: Normal S1 and S2. NSR, No murmur, gallops or friction rubs, peripheral pulses intact. Respiratory: Lungs clear bilaterally , no adventitious lung sounds, currently on room air, raspy cough Gastrointestinal: soft, non-distended, non-tender, normoactive bowel sounds. : voiding without difficulty. Neuro: Alert and oriented x4 Objective Data Vital Signs Vital Signs: Vital Signs - 24 hr 03/21/24 16:00 03/21/24 16:44 03/21/24 20:00 Temperature Pulse Rate 90 87 87 Respiratory Rate Blood Pressure Pulse Oximetry Oxygen Delivery Oxygen Flow Rate 03/21/24 20:41 03/21/24 22:00 03/22/24 00:00 Temperature 98.3 F Pulse Rate 88 87 Respiratory Rate 22 H Blood Pressure 95/65 L Pulse Oximetry 100 100 Oxygen Delivery Nasal Cannula Oxygen Flow Rate 3 03/22/24 04:00 03/22/24 06:00 03/22/24 08:00 Temperature 99.0 F Pulse Rate 89 100 100 Respiratory Rate 20 Blood Pressure 111/55 L Pulse Oximetry 100 Oxygen Delivery Oxygen Flow Rate 03/22/24 09:19 03/22/24 12:00 03/22/24 12:35 Temperature Pulse Rate 130 H 95 96 Respiratory Rate Blood Pressure Pulse Oximetry Oxygen Delivery Oxygen Flow Rate Intake/Output Intake/Output: Intake & Output 03/19/24 03/20/24 03/21/24 03/22/24 23:59 23:59 23:59 23:59 Intake Total 817 270 9642 200 Output Total 450 750 800 Balance -130 -270 270 200 Meds/Results Medications: Active Medications Generic Name Dose Route Start Last Admin Trade Name Freq PRN Reason Stop Dose Admin Acetaminophen 1,000 mg 03/10/24 10:04 03/22/24 12:56 Acetaminophen 500 Mg Tablet PO 1,000 mg Q6H PRN Administration Mild Pain (1-3) or Fever Hydrocodone Bitart/Acetaminophen 1 tab 03/08/24 17:21 03/22/24 09:33 Hydrocodone/Acetaminophen (*Crx) 5-325 Mg Tablet PO 1 tab Q6H PRN Administration Pain Rated 4-6 Acetylcysteine 200 mg 03/22/24 20:00 Acetylcysteine 20% Inhal Soln 800 Mg/4 Ml Vial INHALATION Q12HRT IAN Alprazolam 0.25 mg 03/08/24 17:21 03/20/24 21:42 Alprazolam (*Crx) 0.25 Mg Tablet PO 0.25 mg HS PRN Administration Anxiety Benzocaine 1 lozenge 03/10/24 18:17 03/16/24 08:17 Benzocaine/Menthol (*Bkc) 18 Ea Lozenge PO 1 lozenge PRN PRN Administration Sore Throat Cyanocobalamin 1,000 mcg 03/09/24 09:00 03/22/24 09:23 Cyanocobalamin 1,000 Mcg Tablet PO 1,000 mcg DAILY IAN Administration Cyclobenzaprine HCl 5 mg 03/19/24 14:03 03/20/24 15:42 Cyclobenzaprine Hcl 5 Mg Tablet PO 5 mg Q8H PRN Administration Muscle Spasm Diclofenac Sodium 1 applic 03/10/24 10:04 03/22/24 09:14 Diclofenac Sodium 1% 100 Gm Gel (*Bkc) TOPICAL 1 applic QID PRN Administration joint pain Diclofenac Sodium 1 applic 03/19/24 17:00 03/22/24 12:35 Diclofenac Sodium 1% 100 Gm Gel (*Bkc) TOPICAL 1 applic QID IAN Administration Furosemide 20 mg 03/16/24 09:00 03/22/24 07:47 Furosemide 20 Mg Tablet PO Not Given DAILY IAN Gabapentin 300 mg 03/08/24 21:00 03/22/24 09:23 Gabapentin 300 Mg Capsule PO 300 mg Q12HR IAN Administration Guaifenesin 1,200 mg 03/13/24 12:50 03/22/24 09:13 Guaifenesin 12 Hr 600 Mg Tabcr PO 1,200 mg Q12HR IAN Administration Guaifenesin/Dextromethorphan 10 ml 03/11/24 23:14 03/14/24 07:53 Guaifenesin/Dextromethorphan 10 Ml Udc PO 10 ml Q4H PRN Administration Cough Hydromorphone HCl 0.2 mg 03/21/24 11:31 03/21/24 11:54 Hydromorphone Hcl Inj (*Crx) 1 Mg/Ml Syr IV PUSH 0.2 mg Q6H PRN Administration Pain Rated 7-10 Levalbuterol HCl 1.25 mg 03/22/24 14:00 Levalbuterol Neb 1.25 Mg/3 Ml INHALATION Q6HRT IAN Melatonin 5 mg 03/15/24 21:00 03/21/24 20:40 Melatonin 5 Mg Tablet PO 5 mg HS IAN Administration Methimazole 5 mg 03/09/24 09:00 03/22/24 09:24 Methimazole 5 Mg Tab PO 5 mg DAILY IAN Administration Metoprolol Tartrate 50 mg 03/21/24 09:00 03/22/24 12:35 Metoprolol Tartrate 50 Mg Tab PO 50 mg TID IAN Administration Cinacalcet 15 Mg 0 each 03/10/24 09:00 03/22/24 09:47 Tablet PO 04/09/24 08:59 15 each DAILY IAN Administration Pantoprazole Sodium 40 mg 03/09/24 09:00 03/22/24 09:23 Pantoprazole 40 Mg Tablet PO 40 mg QAM IAN Administration Polyethylene Glycol 17 gm 03/22/24 09:00 03/22/24 12:52 Polyethylene Glycol 3350 17 Gm Powd.Pack PO 17 gm QAM IAN Administration Potassium Chloride 10 meq 03/08/24 21:00 03/21/24 20:41 Potassium Chloride 10 Meq Er Tablet PO 10 meq HS IAN Administration Simvastatin 10 mg 03/08/24 21:00 03/21/24 20:40 Simvastatin 10 Mg Tablet PO 10 mg HS IAN Administration Venlafaxine HCl 150 mg 03/09/24 09:00 03/22/24 09:23 Venlafaxine Hcl Xr 75 Mg Cap.Er.24h PO 150 mg DAILY IAN Administration Vitamin D 1,000 units 03/09/24 09:00 03/22/24 09:24 Cholecalciferol 1,000 Units Tablet PO 1,000 units DAILY IAN Administration Warfarin Sodium 9 mg 03/11/24 17:00 03/13/24 17:40 Warfarin (*Pbkc) 3 Mg Tablet PO 9 mg DAILY@1700 IAN Administration Radiology Results: ITS Impressions Chest X-Ray 03/20/24 06:33 IMPRESSION: No acute cardiopulmonary process or significant change since 03/18/2024 Chest/Abdomen/Pelvis CT 03/21/24 12:36 IMPRESSION: CHEST: 1. No acute cardiopulmonary pathology. 2. Compression fracture of T6. MRI evaluation advised. ABDOMEN/PELVIS: 1. Hematoma in the left anterior abdominal wall. 2. Constipation. Lexiscan Stress Test 03/22/24 12:28 IMPRESSION: 1. No definite ischemia or infarct. 2. Normal left ventricular ejection fraction measuring 56%. Labs Labs: Laboratory Results - last 24 hr 03/22/24 06:31 WBC 10.8 H RBC 2.75 L Hgb 9.0 L Hct 28.8 L MCV 104.7 H MCH 32.7 MCHC 31.3 L RDW 13.7 Plt Count 228 MPV 13.1 H % Immature Plt Fraction 13.1 H PT 31.6 H INR 3.0 Sodium 132 L Potassium 3.6 Chloride 96 L Carbon Dioxide 31 H Anion Gap 5 BUN 28 H Creatinine 1.39 H Estim Creat Clear Calc 31 Estimated GFR 37 L Glucose 108 Calcium 8.6 Total Bilirubin 0.6 AST 37 H ALT 24 Alkaline Phosphatase 95 Total Protein 6.0 L Albumin 2.9 L Quality VTE Prophylaxis VTE prophylaxis: pharmacologic ordered Hospitalist MIPS Advance Care Plan I have confirmed that the patient's Advanced Care Plan is present, code status is documented, or surrogate decision maker is listed in patient medical record.: Yes Medication Reconciliation I have utilized all available resources to obtain, update and review the patients current medications (includes all prescriptions, OTC, herbals, cannabis, and nutritional supplements).: Yes
[2024-03-22] MEDS: LEVALBUTEROL NEB 1.25 MG/3 ML INHALATION ×2 (13:31→20:20)
--- NOTE | 2024-03-22 16:35 | PCPTNOTE ---
The patient treatment was not able to be completed due to patient unavailable with 2 attempts to see today. Will plan to continue treatment per plan of care.
[2024-03-22] MEDS: WARFARIN (*PBKC) 3 MG TABLET 6 MG PO (17:59)
[2024-03-22] MEDS: ACETYLCYSTEINE 20% INHAL SOLN 800 MG/4 ML VIAL 200 MG INHALATION (20:19)
[2024-03-22] MEDS: POTASSIUM CHLORIDE 10 MEQ ER TABLET PO (20:36)
[2024-03-22] MEDS: MELATONIN 5 MG TABLET PO (20:36)
[2024-03-22] MEDS: SIMVASTATIN 10 MG TABLET PO (20:36)
[2024-03-23] VITALS (21 sets, daily range): BP systolic 114–122; BP diastolic 56–60; PULSE 84–122; RESP 13–20; TEMP 36.7–37.2; O2SAT 94–100
[2024-03-23] MEDS: LEVALBUTEROL NEB 1.25 MG/3 ML INHALATION ×4 (02:02→20:54)
[2024-03-23] MEDS: HYDROcodone/acetaminophen (*CRX) 5-325 MG TABLET 1 TAB PO ×2 (02:44→12:36)
[2024-03-23 07:02] LABS: Hematocrit 28.3 % (37.0-47.0); Immature Platelet Fraction Pct 12.9 % (0.9-11.2); Mean Corpuscular HGB Conc 31.8 g/dl (32-36); Mean Corpuscular Hemoglobin 32.8 pg (26-34); Mean Corpuscular Volume 103.3 fl (80-100); Mean Platelet Volume 13.2 fl (7.4-10.4); Platelet Count Result 242 k/mm3 (150-375); Red Blood Count 2.74 M/mm3 (4.2-5.4); Red Cell Distribution Width 13.8 % (11.5-14.5); White Blood Count 10.9 K/mm3 (4.5-10.0)
[2024-03-23 07:16] LABS: INR 3.3; Prothrombin Time 34.4 Seconds (11.1-14.7)
[2024-03-23 07:23] LABS: Alanine Aminotransferase 37 U/L (6-35); Albumin Level 2.9 g/dL (3.5-5.1); Alkaline Phosphatase 95 U/L (38-126); Anion Gap 4 mmol/L (4-12); Aspartate Amino Transferase 68 U/L (14-36); Bilirubin,Total 0.7 mg/dL (0.2-1.3); Blood Urea Nitrogen 26 mg/dL (7-17); Carbon Dioxide 31 mmol/L (22-30); Chloride 96 mmol/L (98-107); Estimated CRCL calculation 36 ml/min; Estimated Glomerular Filt Rate 43; Glucose 175 mg/dL (65-110); Sodium 131 mmol/L (137-145)
[2024-03-23] MEDS: PANTOPRAZOLE 40 MG TABLET PO (08:05)
[2024-03-23] MEDS: guaiFENesin 12 HR 600 MG TABCR 1200 MG PO ×2 (08:05→21:22)
[2024-03-23] MEDS: VENLAFAXINE HCL XR 75 MG CAP.ER.24H 150 MG PO (08:05)
[2024-03-23] MEDS: polyethylene glycoL 3350 17 GM POWD.PACK PO (08:07)
[2024-03-23] MEDS: METOPROLOL TARTRATE 50 MG TAB PO ×3 (08:08→16:27)
[2024-03-23] MEDS: CYANOCOBALAMIN 1,000 MCG TABLET 1000 MCG PO (08:08)
[2024-03-23] MEDS: methiMAzole 5 MG TAB PO (08:08)
[2024-03-23] MEDS: FUROSEMIDE 20 MG TABLET PO (08:08)
[2024-03-23] MEDS: GABAPENTIN 300 MG CAPSULE PO ×2 (08:08→21:22)
[2024-03-23] MEDS: CHOLECALCIFEROL 1,000 UNITS TABLET 1000 UNITS PO (08:08)
[2024-03-23] MEDS: DICLOFENAC SODIUM 1% 100 GM GEL (*BKC) 1 APPLIC TOPICAL ×4 (08:09→21:21)
[2024-03-23] MEDS: ACETYLCYSTEINE 20% INHAL SOLN 800 MG/4 ML VIAL 200 MG INHALATION ×2 (08:25→20:54)
[2024-03-23] MEDS: CINACALCET PO (09:01)
--- NOTE | 2024-03-23 09:35 | P.PNIM_ITS ---
Progress Note: A&P Assessment and Plan (1) Mechanical heart valve present: Code(s): Z95.2 - Presence of prosthetic heart valve Status: Acute Assessment and Plan: 03/21 : I assumed care today. Patient INR is 3.1. Patient target INR is 2.5-3. Currently warfarin is on hold. Patient is also on Lovenox 80 mg b.i.d.. Since patient is already over therapeutic INR and in spite of receiving Lovenox makes her over anticoagulated. So today discontinued Lovenox. Given her warfarin 5 mg x 1 and possibly restart her home warfarin dosage 9mg from tomorrow. I performed CT chest/abdomen/pelvis which shows hematoma in the left anterior abdominal wall 3 x 2.5 cm. Discussed the goal of care with the nursing team. Patient wants some time to decide on her code status. 03/22: Surgery evaluated the patient under report overlying skin appears intact and there is no signs of infection. No indication for surgical intervention at this time. Patient has some cough and congestion. Patient is already on Mucinex, cornet. Ordered Xopenex around the clock for 2 days and Mucomyst b.i.d.. Discussed with the pharmacist and resume her home dose 6 mg not the 9 mg from today. Patient underwent a Lexiscan today 03/23: INR 3.3. Holding warfarin home dose is 6 mg. Hematoma of the abdominal wall has been evaluated by the surgery and currently does not need surgical intervention. Patient underwent Lexiscan yesterday which shows: 1. No definite ischemia or infarct. 2. Normal left ventricular ejection fraction measuring 56%. Audible mechanical heart valve. INR subtherapeutic for several days, 1.5, 1.4, 1 today. Next of Kin, PCP manages INR and warfarin doses for her. Next of Kin, Anshul coordinates with the office. The last 2 weeks before admission she was taking 6 mg thursday-, 5mg thursday, sat, sun. Generally has INR checks ever 2 weeks Goal INR 2.5-3.5 with her mechanical valve. Izzy reports 9mg daily is a higher dose than she has needed previously --Started a heparin drip with a bolus for subtherapeutic INR --Follow CBC since trending down but may be dilutional. Stable overnight --Warfarin 8mg<9mg daily --Daily INR, closer to goal --Coordinate INR checks & follow up plan with PCP's office, Dr. Sanjeev Rosenberg 03/07 1.5 03/08 Warfarin 6mg 03/09 1.4 Warfarin 6mg 03/10 1 Warfarin 8mg 03/11 1.7 Warfarin 9mg 03/12 2.1 & 2.2 Warfarin 9mg (lab said it was likely run twice for a precision check) 03/14: * 3.9 - Will hold tonight's dose. * Continue to trend daily INR's * Therapeutically dosed Lovenox is discontinued at this time as pt has been receiving it as a bridge. 03/15 * INR 4.1 * Continue to hold Warfarin * Continue to trend daily INR * Reports passing a small amount of bright red blood today after bowel movement * Continue to monitor. * Patient on Augmentin which can make therapeutic trend challenging 03/16 * INR 3.9 * Continue to hold Warfarin 03/17 * INR 3.3 * Continue to hold Warfarin 03/18 * INR 3.4 * Continue to hold Warfarin for now 03/19 * INR 3.5 * Continue to hold warfarin 03/20 * INR 3.2 today * Continue to hold Warfarin 03/21 INR 3.1 Discontinue Lovenox due to over anticoagulation Supratherapeutic INR 3.1 Hold warfarin Evidence of hematoma in the left anterior abdominal wall 3 x 2.5 cm (2) Palpitations: Code(s): R00.2 - Palpitations Status: Acute Assessment and Plan: - Likely due to PAF with RVR. - Better after hydration and resuming home meds. 03/14/24 * Rate now controlled significantly better. * Continue Telemetry. * Continue to monitor. 03/15/24 * Rate controlled in the 90's * Discontinue telemetry * Hold Warfarin for supratherapeutic INR 03/16 * Continue to hold Warfarin (3) Acute kidney injury: Code(s): N17.9 - Acute kidney failure, unspecified Status: Acute Assessment and Plan: Ddx pre-renal vs poor PO intake vs meds vs other. s/p 500 bolus with tachycardia --Resumed lasix --Creatinine stable 03/14/24: * Continue Lasix as ordered * Creatinine today 1.2, at baseline. * Continue to trend and monitor. 03/15/23: * Creatinine 1.16 currently at baseline 03/16 * Creatinine 1.33 03/17 * Creatinine 1.41 03/18 * stable, near baseline (4) HTN (hypertension): Qualifiers: Hypertension type: primary hypertension Qualified Code(s): I10 - Essential (primary) hypertension Code(s): I10 - Essential (primary) hypertension Status: Acute Assessment and Plan: - Appears well controlled. - Continue metoprolol, changed from XL to IR for titration - Follow VS 03/14/24: * Continuing to trend and monitor. Stable 03/15/24: * Blood pressures ranging 125/54-150/68 * Continue Metoprolol (5) Hyperlipidemia: Qualifiers: Hyperlipidemia type: mixed hyperlipidemia Qualified Code(s): E78.2 - Mixed hyperlipidemia Code(s): E78.5 - Hyperlipidemia, unspecified Status: Acute Assessment and Plan: * continue simvastatin (6) Shortness of breath: Code(s): R06.02 - Shortness of breath Status: Acute Assessment and Plan: Mildly tachypneic. Not obviously overloaded on exam, likely 2/2 pneumonia --Started heparin drip, if not resolved consider a CT r/o PE, but is on warfarin chronically for mechanical heart valve --Treatment of pneumonia and heart failure, rate control afib --PEP therapy for airway clearance 03/14/24: * Continue Unasyn for underlying cause of PNA. * Wean oxygen for sats >90%. Nursing order placed. * Continue to trend. 03/15/23: * Will change to Augmentin today * Currently on 2L NC * Continue to wean for a saturation greater than 90%. 03/16 * Continue to wean O2 * Currently on 2L NC * lasix 40 mg IVP given today 03/17 * Currently on room air * Will add home dose of 20 mg Lasix oral (7) Anemia: Code(s): D64.9 - Anemia, unspecified Status: Acute Assessment and Plan: Blood count trending down since admission but may be dilutional 14.2>11.1 Iron panel showing iron deficiency anemia, Total Iron and Tsat low. B12 636. LDH 245 --iron sucrose 300mg x3 doses --Follow CBC --If downtrending would need GI consult on chronic anticoagulation 03/14/24: * Hgb further declined today to 10.5. * Small drop, continue to monitor. * Pt just finished her third dose of Venofer. * Occult blood ordered from stool. * Consider GI consult if further declination as she is on chronic anticoagulation. * Pt's INR today is 3.9. Her dose of Coumadin for tonight is held and will need restarted tomorrow if applicable. In addition, the pt's Therapeutically dosed bridge Lovenox is discontinued today. * Monitor for any s/s of acute bleeding. 03/15/23: * Hgb 10.3 today * Patient had 3 doses of Venofer * collect occult blood stool 03/16 * No real change, Hgb 10.9 (8) Heart failure, diastolic, acute on chronic: Code(s): I50.33 - Acute on chronic diastolic (congestive) heart failure Status: Acute Assessment and Plan: 08/24/23 Echo: TDS. EF 45%, biatrial enlargement, suspect (YADIRA 1.4 cm2), mod MR, mild-mod TR. s/p 500ml fluid bolus, now back on IV lasix NT-proBNP 10,000 Resume lasix, 20mg IV daily & increase as able TTE 03/14/24: * Chronic in nature. * Appears euvolemic. * Continue Lasix 03/15/23: * Will increase to 40 mg IVP lasix today * Course bilaterally with peripheral swelling 03/16 * continue Lasix 03/17 * Transition to oral Lasix * Appears euvolemic 03/18 * Flipped into A fib with RVR today * Lungs sounding course * Will repeat CXR now * Last Echo on 03/11/24 shown LVEF of 3-40% 03/19 * Back in NSR * Continue telemetry monitoring * CXR was negative * proBNP elevated, however lung sounds are clear 03/20 * Flipped back into A fib RVR overnight * Repeat EKG showing new LBBB--Cardiology was notified. * Mild troponin bump--likely demand ischemia * Plan for Lexiscan stress test tomorrow to further evaluate (9) Pneumonia: Code(s): J18.9 - Pneumonia, unspecified organism Status: Acute Assessment and Plan: Resolved. Hospital associated pneumonia. Chest x-ray showed possible RLL pneumonia. Has crackles on exam. Intermittent fevers. Resolved today after starting unasyn. On room air --Started Unasyn, change to augmentin if improving --If new oxygen requirements, broaden to Cefepime/Vanc/Flagyl --Also has a sore throat, checking strep culture. Chlorseptic drops & tylenol prn --Urine for strep pneumo --Follow up chest x-ray if new oxygen requirement or not resolving --Staph screen. Can broaden to Cefepime/Vanc if worsening --Sputum culture if able to collect. Would only use to guide treatment if not improving with current antibiotics 03/14/24: * Continue Unasyn. Could likely switch to oral Augmentin tomorrow. 03/15/24: * Unasyn changed to Augmentin 03/18/24 * Augmentin finished today (10) Atrial fibrillation with RVR: Code(s): I48.91 - Unspecified atrial fibrillation Status: Acute Assessment and Plan: Home metoprolol ER 25mg daily Resting HR 70s-90s, 100-130's with activity on 03/10. Rate controlled with increased dose of metoprolol and a 500ml fluid bolus - Change Metoprolol ER 25mg daily to metoprolol tartrate 12.5mg q6 and titrate. 5mg IV metoprolol --INR goal as noted for mechanical heart valve. INR can be affected by antibiotics --Cardiology consulted, appreciate recommendations 03/15/24: * Rate controlled in the 90's * Continue Metoprolol * D/C continuous tele * Hold Warfarin due to supratherapeutic INR 03/17 * Continue to hold Warfarin 03/18 * Went back into Afib RVR today * Continue to hold Warfarin due to supratherapeutic INR * Will increase Metoprolol to 25 mg q6h for better rate control * Continue tele * Cardiology reconsulted * repeating CXR 03/19 * In NSR now, continue Metoprolol 25 mg q6h * Continue tele for now * Cardiology following * CXR negative 03/20 * Flipped back into A fib RVR overnight * Repeat EKG showing new LBBB--Cardiology was notified. * Mild troponin bump--likely demand ischemia * Plan for Lexiscan stress test tomorrow to further evaluate 03/21 Metoprolol tartrate 50 mg p.o. t.i.d. Warfarin 5 mg p.o. q.d. Subjective Date/time seen: 03/23/24 09:35 Interval history: INR 3.3. Holding warfarin home dose is 6 mg. Hematoma of the abdominal wall has been evaluated by the surgery and currently does not need surgical intervention. Patient underwent Lexiscan yesterday. Patient reports of lower back pain radiating towards right side. Ordered MRI lumbar but due to past medical history of aortic valve replacement unable to perform. Patient has a remote history of aortic valve replacement in 2003, possibly at [facility]. Will request documents. Will do lumbar x-ray. Review of Systems Review of Systems: All systems reviewed & are unremarkable except as noted in HPI and below Constitutional: Constitutional: Reports as per HPI and Reports no additional constitutional complaints Eyes: Eyes: Reports as per HPI and Reports no additional eye complaints ENT: Reports system reviewed and no additional complaints, except as documented and Reports as per HPI Cardiovascular: Cardiovascular: Reports as per HPI and Reports no additional cardiovascular complaints Respiratory: Respiratory: Reports as per HPI and Reports no additional respiratory complaints Gastrointestinal: Gastrointestinal: Reports as per HPI and Reports no additional gastrointestinal complaints Genitourinary: Genitourinary: Reports no additional female genitourinary complaints and Reports as per HPI Musculoskeletal: Musculoskeletal: Reports no additional musculoskeletal complaints and Reports as per HPI Integumentary/Breasts: Skin/Breast: Reports system reviewed and no additional complaints, except as docu and Reports as per HPI Neurologic: Reports system reviewed and no additional complaints, except as documented and Reports as per HPI Psychiatric: Psychiatric: Reports no additional psychiatric complaints and Reports as per HPI Exam Narrative: General: In no acute distress, well nourished Cardiac: Normal S1 and S2. NSR, No murmur, gallops or friction rubs, peripheral pulses intact. Respiratory: Lungs clear bilaterally , no adventitious lung sounds, currently on room air, raspy cough Gastrointestinal: soft, non-distended, non-tender, normoactive bowel sounds. : voiding without difficulty. Neuro: Alert and oriented x4 Objective Data Vital Signs Vital Signs: Vital Signs - 24 hr 03/22/24 12:00 03/22/24 12:35 03/22/24 13:37 Temperature Pulse Rate 95 96 Respiratory Rate Blood Pressure Pulse Oximetry 96 Oxygen Delivery Nasal Cannula Oxygen Flow Rate 3 Fraction of Inspired Oxygen 03/22/24 13:38 03/22/24 14:00 03/22/24 16:00 Temperature 97.9 F Pulse Rate 94 88 80 Respiratory Rate 20 16 Blood Pressure 122/72 Pulse Oximetry 98 Oxygen Delivery Oxygen Flow Rate Fraction of Inspired Oxygen 03/22/24 18:00 03/22/24 20:00 03/22/24 20:02 Temperature 97.5 F L Pulse Rate 87 88 81 Respiratory Rate 16 Blood Pressure 108/58 L Pulse Oximetry 94 Oxygen Delivery Oxygen Flow Rate Fraction of Inspired Oxygen 03/22/24 20:20 03/22/24 20:25 03/22/24 20:29 Temperature Pulse Rate 82 82 82 Respiratory Rate 20 20 Blood Pressure Pulse Oximetry 95 Oxygen Delivery Nasal Cannula Oxygen Flow Rate 3 Fraction of Inspired Oxygen 03/22/24 20:40 03/23/24 00:03 03/23/24 02:02 Temperature Pulse Rate 82 84 91 Respiratory Rate 20 20 Blood Pressure Pulse Oximetry 95 Oxygen Delivery Nasal Cannula Oxygen Flow Rate 2 Fraction of Inspired Oxygen 8 03/23/24 02:11 03/23/24 04:01 03/23/24 06:00 Temperature 98.7 F Pulse Rate 87 102 H 92 Respiratory Rate 20 13 Blood Pressure 114/56 L Pulse Oximetry 100 Oxygen Delivery Oxygen Flow Rate Fraction of Inspired Oxygen 03/23/24 08:08 03/23/24 08:25 03/23/24 08:25 Temperature Pulse Rate 122 H 118 H Respiratory Rate 20 Blood Pressure Pulse Oximetry 94 Oxygen Delivery Room Air Oxygen Flow Rate Fraction of Inspired Oxygen 03/23/24 08:40 Temperature Pulse Rate 114 H Respiratory Rate 20 Blood Pressure Pulse Oximetry Oxygen Delivery Oxygen Flow Rate Fraction of Inspired Oxygen Intake/Output Intake/Output: Intake & Output 03/20/24 03/21/24 03/22/24 03/23/24 23:59 23:59 23:59 23:59 Intake Total 480 1070 440 500 Output Total 750 800 350 100 Balance -270 270 90 400 Meds/Results Medications: Active Medications Generic Name Dose Route Start Last Admin Trade Name Freq PRN Reason Stop Dose Admin Acetaminophen 1,000 mg 03/10/24 10:04 03/22/24 12:56 Acetaminophen 500 Mg Tablet PO 1,000 mg Q6H PRN Administration Mild Pain (1-3) or Fever Hydrocodone Bitart/Acetaminophen 1 tab 03/08/24 17:21 03/23/24 02:44 Hydrocodone/Acetaminophen (*Crx) 5-325 Mg Tablet PO 1 tab Q6H PRN Administration Pain Rated 4-6 Acetylcysteine 200 mg 03/22/24 20:00 03/23/24 08:25 Acetylcysteine 20% Inhal Soln 800 Mg/4 Ml Vial INHALATION 200 mg Q12HRT IAN Administration Alprazolam 0.25 mg 03/08/24 17:21 03/20/24 21:42 Alprazolam (*Crx) 0.25 Mg Tablet PO 0.25 mg HS PRN Administration Anxiety Benzocaine 1 lozenge 03/10/24 18:17 03/16/24 08:17 Benzocaine/Menthol (*Bkc) 18 Ea Lozenge PO 1 lozenge PRN PRN Administration Sore Throat Cyanocobalamin 1,000 mcg 03/09/24 09:00 03/23/24 08:08 Cyanocobalamin 1,000 Mcg Tablet PO 1,000 mcg DAILY IAN Administration Cyclobenzaprine HCl 5 mg 03/19/24 14:03 03/20/24 15:42 Cyclobenzaprine Hcl 5 Mg Tablet PO 5 mg Q8H PRN Administration Muscle Spasm Diclofenac Sodium 1 applic 03/10/24 10:04 03/22/24 09:14 Diclofenac Sodium 1% 100 Gm Gel (*Bkc) TOPICAL 1 applic QID PRN Administration joint pain Diclofenac Sodium 1 applic 03/19/24 17:00 03/23/24 08:09 Diclofenac Sodium 1% 100 Gm Gel (*Bkc) TOPICAL 1 applic QID IAN Administration Furosemide 20 mg 03/16/24 09:00 03/23/24 08:08 Furosemide 20 Mg Tablet PO 20 mg DAILY IAN Administration Gabapentin 300 mg 03/08/24 21:00 03/23/24 08:08 Gabapentin 300 Mg Capsule PO 300 mg Q12HR IAN Administration Guaifenesin 1,200 mg 03/13/24 12:50 03/23/24 08:05 Guaifenesin 12 Hr 600 Mg Tabcr PO 1,200 mg Q12HR IAN Administration Guaifenesin/Dextromethorphan 10 ml 03/11/24 23:14 03/14/24 07:53 Guaifenesin/Dextromethorphan 10 Ml Udc PO 10 ml Q4H PRN Administration Cough Hydromorphone HCl 0.2 mg 03/21/24 11:31 03/21/24 11:54 Hydromorphone Hcl Inj (*Crx) 1 Mg/Ml Syr IV PUSH 0.2 mg Q6H PRN Administration Pain Rated 7-10 Levalbuterol HCl 1.25 mg 03/22/24 14:00 03/23/24 08:25 Levalbuterol Neb 1.25 Mg/3 Ml INHALATION 1.25 mg Q6HRT IAN Administration Melatonin 5 mg 03/15/24 21:00 03/22/24 20:36 Melatonin 5 Mg Tablet PO 5 mg HS IAN Administration Methimazole 5 mg 03/09/24 09:00 03/23/24 08:08 Methimazole 5 Mg Tab PO 5 mg DAILY IAN Administration Metoprolol Tartrate 50 mg 03/21/24 09:00 03/23/24 08:08 Metoprolol Tartrate 50 Mg Tab PO 50 mg TID IAN Administration Cinacalcet 15 Mg 0 each 03/10/24 09:00 03/23/24 09:01 Tablet PO 04/09/24 08:59 15 each DAILY IAN Administration Pantoprazole Sodium 40 mg 03/09/24 09:00 03/23/24 08:05 Pantoprazole 40 Mg Tablet PO 40 mg QAM IAN Administration Polyethylene Glycol 17 gm 03/22/24 09:00 03/23/24 08:07 Polyethylene Glycol 3350 17 Gm Powd.Pack PO 17 gm QAM IAN Administration Potassium Chloride 10 meq 03/08/24 21:00 03/22/24 20:36 Potassium Chloride 10 Meq Er Tablet PO 10 meq HS IAN Administration Simvastatin 10 mg 03/08/24 21:00 03/22/24 20:36 Simvastatin 10 Mg Tablet PO 10 mg HS IAN Administration Venlafaxine HCl 150 mg 03/09/24 09:00 03/23/24 08:05 Venlafaxine Hcl Xr 75 Mg Cap.Er.24h PO 150 mg DAILY IAN Administration Vitamin D 1,000 units 03/09/24 09:00 03/23/24 08:08 Cholecalciferol 1,000 Units Tablet PO 1,000 units DAILY IAN Administration Warfarin Sodium 9 mg 03/11/24 17:00 03/13/24 17:40 Warfarin (*Pbkc) 3 Mg Tablet PO 9 mg DAILY@1700 IAN Administration Warfarin Sodium 6 mg 03/22/24 17:00 01/14/25 17:59 Warfarin (*Pbkc) 3 Mg Tablet PO 6 mg DAILY@1700 [facility] Administration Radiology Results: ITS Impressions Chest X-Ray 03/20/24 06:33 IMPRESSION: No acute cardiopulmonary process or significant change since 03/18/2024 Chest/Abdomen/Pelvis CT 03/21/24 12:36 IMPRESSION: CHEST: 1. No acute cardiopulmonary pathology. 2. Compression fracture of T6. MRI evaluation advised. ABDOMEN/PELVIS: 1. Hematoma in the left anterior abdominal wall. 2. Constipation. Lexiscan Stress Test 03/22/24 12:28 IMPRESSION: 1. No definite ischemia or infarct. 2. Normal left ventricular ejection fraction measuring 56%. Labs Labs: Laboratory Results - last 24 hr 03/23/24 06:18 WBC 10.9 H RBC 2.74 L Hgb 9.0 L Hct 28.3 L MCV 103.3 H MCH 32.8 MCHC 31.8 L RDW 13.8 Plt Count 242 MPV 13.2 H % Immature Plt Fraction 12.9 H PT 34.4 H INR 3.3 Sodium 131 L Potassium 4.0 Chloride 96 L Carbon Dioxide 31 H Anion Gap 4 BUN 26 H Creatinine 1.20 H Estim Creat Clear Calc 36 Estimated GFR 43 L Glucose 175 H Calcium 9.0 Total Bilirubin 0.7 AST 68 H ALT 37 H Alkaline Phosphatase 95 Total Protein 6.0 L Albumin 2.9 L Quality VTE Prophylaxis VTE prophylaxis: pharmacologic ordered Hospitalist [facility] Advance Care Plan I have confirmed that the patient's Advanced Care Plan is present, code status is documented, or surrogate decision maker is listed in patient medical record.: Yes Medication Reconciliation I have utilized all available resources to obtain, update and review the patients current medications (includes all prescriptions, OTC, herbals, cannabis, and nutritional supplements).: Yes
--- NOTE | 2024-03-23 10:16 | PCNWS ---
Weekly nutritional screen. Patient is tolerating current Heart healthy diet with adequate intake 50-100%. No weight loss reported. No nutritional needs at this time.
--- NOTE | 2024-03-23 11:30 | P.PNGS_ITS ---
Progress Note: A&P Assessment and Plan (1) Hematoma of abdominal wall: Qualifiers: Encounter type: initial encounter Qualified Code(s): S30.1XXA - Contusion of abdominal wall, initial encounter Code(s): S30.1XXA - Contusion of abdominal wall, initial encounter Status: Acute Assessment and Plan: * This is not a surgical concern just because it was seen on a CT. A small hematoma is very likely due to patient receiving Lovenox injections while she is already therapeutic with her warfarin. 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 Exam GI: Other: Ecchymosis along LLQ, no significant palpable hematoma. Objective Data Vital Signs Vital Signs: Vital Signs - 24 hr 03/22/24 12:00 03/22/24 12:35 03/22/24 13:37 Temperature Pulse Rate 95 96 Respiratory Rate Blood Pressure Pulse Oximetry 96 Oxygen Delivery Nasal Cannula Oxygen Flow Rate 3 Fraction of Inspired Oxygen 03/22/24 13:38 03/22/24 14:00 03/22/24 16:00 Temperature 97.9 F Pulse Rate 94 88 80 Respiratory Rate 20 16 Blood Pressure 122/72 Pulse Oximetry 98 Oxygen Delivery Oxygen Flow Rate Fraction of Inspired Oxygen 03/22/24 18:00 03/22/24 20:00 03/22/24 20:02 Temperature 97.5 F L Pulse Rate 87 88 81 Respiratory Rate 16 Blood Pressure 108/58 L Pulse Oximetry 94 Oxygen Delivery Oxygen Flow Rate Fraction of Inspired Oxygen 03/22/24 20:20 03/22/24 20:25 03/22/24 20:29 Temperature Pulse Rate 82 82 82 Respiratory Rate 20 20 Blood Pressure Pulse Oximetry 95 Oxygen Delivery Nasal Cannula Oxygen Flow Rate 3 Fraction of Inspired Oxygen 03/22/24 20:40 03/23/24 00:03 03/23/24 02:02 Temperature Pulse Rate 82 84 91 Respiratory Rate 20 20 Blood Pressure Pulse Oximetry 95 Oxygen Delivery Nasal Cannula Oxygen Flow Rate 2 Fraction of Inspired Oxygen 8 03/23/24 02:11 03/23/24 04:01 03/23/24 06:00 Temperature 98.7 F Pulse Rate 87 102 H 92 Respiratory Rate 20 13 Blood Pressure 114/56 L Pulse Oximetry 100 Oxygen Delivery Oxygen Flow Rate Fraction of Inspired Oxygen 03/23/24 08:00 03/23/24 08:00 03/23/24 08:08 Temperature Pulse Rate 122 H 122 H Respiratory Rate Blood Pressure Pulse Oximetry 94 Oxygen Delivery Room Air Oxygen Flow Rate Fraction of Inspired Oxygen 03/23/24 08:25 03/23/24 08:25 03/23/24 08:40 Temperature Pulse Rate 118 H 114 H Respiratory Rate 20 20 Blood Pressure Pulse Oximetry 94 Oxygen Delivery Room Air Oxygen Flow Rate Fraction of Inspired Oxygen Intake/Output Intake/Output: Intake & Output 03/20/24 03/21/24 03/22/24 03/23/24 23:59 23:59 23:59 23:59 Intake Total 480 1070 440 620 Output Total 750 800 350 100 Balance -270 270 90 520 Meds/Results Medications: Active Medications Generic Name Dose Route Start Last Admin Trade Name Freq PRN Reason Stop Dose Admin Acetaminophen 1,000 mg 03/10/24 10:04 03/22/24 12:56 Acetaminophen 500 Mg Tablet PO 1,000 mg Q6H PRN Administration Mild Pain (1-3) or Fever Hydrocodone Bitart/Acetaminophen 1 tab 03/08/24 17:21 03/23/24 02:44 Hydrocodone/Acetaminophen (*Crx) 5-325 Mg Tablet PO 1 tab Q6H PRN Administration Pain Rated 4-6 Acetylcysteine 200 mg 03/22/24 20:00 03/23/24 08:25 Acetylcysteine 20% Inhal Soln 800 Mg/4 Ml Vial INHALATION 200 mg Q12HRT IAN Administration Alprazolam 0.25 mg 03/08/24 17:21 03/20/24 21:42 Alprazolam (*Crx) 0.25 Mg Tablet PO 0.25 mg HS PRN Administration Anxiety Benzocaine 1 lozenge 03/10/24 18:17 03/16/24 08:17 Benzocaine/Menthol (*Bkc) 18 Ea Lozenge PO 1 lozenge PRN PRN Administration Sore Throat Cyanocobalamin 1,000 mcg 03/09/24 09:00 03/23/24 08:08 Cyanocobalamin 1,000 Mcg Tablet PO 1,000 mcg DAILY IAN Administration Cyclobenzaprine HCl 5 mg 03/19/24 14:03 03/20/24 15:42 Cyclobenzaprine Hcl 5 Mg Tablet PO 5 mg Q8H PRN Administration Muscle Spasm Diclofenac Sodium 1 applic 03/10/24 10:04 03/22/24 09:14 Diclofenac Sodium 1% 100 Gm Gel (*Bkc) TOPICAL 1 applic QID PRN Administration joint pain Diclofenac Sodium 1 applic 03/19/24 17:00 03/23/24 08:09 Diclofenac Sodium 1% 100 Gm Gel (*Bkc) TOPICAL 1 applic QID IAN Administration Furosemide 20 mg 03/16/24 09:00 03/23/24 08:08 Furosemide 20 Mg Tablet PO 20 mg DAILY IAN Administration Gabapentin 300 mg 03/08/24 21:00 03/23/24 08:08 Gabapentin 300 Mg Capsule PO 300 mg Q12HR IAN Administration Guaifenesin 1,200 mg 03/13/24 12:50 03/23/24 08:05 Guaifenesin 12 Hr 600 Mg Tabcr PO 1,200 mg Q12HR IAN Administration Guaifenesin/Dextromethorphan 10 ml 03/11/24 23:14 03/14/24 07:53 Guaifenesin/Dextromethorphan 10 Ml Udc PO 10 ml Q4H PRN Administration Cough Hydromorphone HCl 0.2 mg 03/21/24 11:31 03/21/24 11:54 Hydromorphone Hcl Inj (*Crx) 1 Mg/Ml Syr IV PUSH 0.2 mg Q6H PRN Administration Pain Rated 7-10 Levalbuterol HCl 1.25 mg 03/22/24 14:00 03/23/24 08:25 Levalbuterol Neb 1.25 Mg/3 Ml INHALATION 1.25 mg Q6HRT IAN Administration Melatonin 5 mg 03/15/24 21:00 03/22/24 20:36 Melatonin 5 Mg Tablet PO 5 mg HS IAN Administration Methimazole 5 mg 03/09/24 09:00 03/23/24 08:08 Methimazole 5 Mg Tab PO 5 mg DAILY IAN Administration Metoprolol Tartrate 50 mg 03/21/24 09:00 03/23/24 08:08 Metoprolol Tartrate 50 Mg Tab PO 50 mg TID IAN Administration Cinacalcet 15 Mg 0 each 03/10/24 09:00 03/23/24 09:01 Tablet PO 04/09/24 08:59 15 each DAILY IAN Administration Pantoprazole Sodium 40 mg 03/09/24 09:00 03/23/24 08:05 Pantoprazole 40 Mg Tablet PO 40 mg QAM IAN Administration Polyethylene Glycol 17 gm 03/22/24 09:00 03/23/24 08:07 Polyethylene Glycol 3350 17 Gm Powd.Pack PO 17 gm QAM IAN Administration Potassium Chloride 10 meq 03/08/24 21:00 03/22/24 20:36 Potassium Chloride 10 Meq Er Tablet PO 10 meq HS IAN Administration Simvastatin 10 mg 03/08/24 21:00 03/22/24 20:36 Simvastatin 10 Mg Tablet PO 10 mg HS IAN Administration Venlafaxine HCl 150 mg 03/09/24 09:00 03/23/24 08:05 Venlafaxine Hcl Xr 75 Mg Cap.Er.24h PO 150 mg DAILY IAN Administration Vitamin D 1,000 units 03/09/24 09:00 03/23/24 08:08 Cholecalciferol 1,000 Units Tablet PO 1,000 units DAILY IAN Administration Warfarin Sodium 9 mg 03/11/24 17:00 03/13/24 17:40 Warfarin (*Pbkc) 3 Mg Tablet PO 9 mg DAILY@1700 IAN Administration Warfarin Sodium 6 mg 03/22/24 17:00 03/22/24 17:59 Warfarin (*Pbkc) 3 Mg Tablet PO 6 mg DAILY@1700 IAN Administration Radiology Results: ITS Impressions Chest X-Ray 03/20/24 06:33 IMPRESSION: No acute cardiopulmonary process or significant change since 03/18/2024 Chest/Abdomen/Pelvis CT 03/21/24 12:36 IMPRESSION: CHEST: 1. No acute cardiopulmonary pathology. 2. Compression fracture of T6. MRI evaluation advised. ABDOMEN/PELVIS: 1. Hematoma in the left anterior abdominal wall. 2. Constipation. Lexiscan Stress Test 03/22/24 12:28 IMPRESSION: 1. No definite ischemia or infarct. 2. Normal left ventricular ejection fraction measuring 56%. Labs Labs: Laboratory Results - last 24 hr 03/23/24 06:18 WBC 10.9 H RBC 2.74 L Hgb 9.0 L Hct 28.3 L MCV 103.3 H MCH 32.8 MCHC 31.8 L RDW 13.8 Plt Count 242 MPV 13.2 H % Immature Plt Fraction 12.9 H PT 34.4 H INR 3.3 Sodium 131 L Potassium 4.0 Chloride 96 L Carbon Dioxide 31 H Anion Gap 4 BUN 26 H Creatinine 1.20 H Estim Creat Clear Calc 36 Estimated GFR 43 L Glucose 175 H Calcium 9.0 Total Bilirubin 0.7 AST 68 H ALT 37 H Alkaline Phosphatase 95 Total Protein 6.0 L Albumin 2.9 L
--- NOTE | 2024-03-23 13:10 | PCOTNOTE ---
Patient unavailable at this time. Patient going down for testing.
--- NOTE | 2024-03-23 15:02 | PCOTNOTE ---
Attempted to see Patient at this time. Patient having some confusion at this time. RN in the room. Patient declined this afternoon, states having to much pain.
[2024-03-23] MEDS: SIMVASTATIN 10 MG TABLET PO (21:21)
[2024-03-23] MEDS: MELATONIN 5 MG TABLET PO (21:21)
[2024-03-23] MEDS: POTASSIUM CHLORIDE 10 MEQ ER TABLET PO (21:22)
[2024-03-24] VITALS (21 sets, daily range): BP systolic 106–118; BP diastolic 54–65; PULSE 86–121; RESP 16–24; TEMP 36.4–37.6; O2SAT 94–98
[2024-03-24] MEDS: LEVALBUTEROL NEB 1.25 MG/3 ML INHALATION ×4 (02:40→20:47)
[2024-03-24 06:39] LABS: Hematocrit 28.3 % (37.0-47.0); Hemoglobin 8.7 g/dL (12.0-15.0); Mean Corpuscular HGB Conc 30.7 g/dl (32-36); Mean Platelet Volume 12.9 fl (7.4-10.4); Platelet Count Result 290 k/mm3 (150-375); Red Blood Count 2.72 M/mm3 (4.2-5.4); Red Cell Distribution Width 13.9 % (11.5-14.5)
[2024-03-24 06:52] LABS: Alanine Aminotransferase 38 U/L (6-35); Alkaline Phosphatase 93 U/L (38-126); Anion Gap 4 mmol/L (4-12); Aspartate Amino Transferase 56 U/L (14-36); Bilirubin,Total 0.7 mg/dL (0.2-1.3); Blood Urea Nitrogen 21 mg/dL (7-17); Calcium 9.3 mg/dL (8.4-10.2); Carbon Dioxide 30 mmol/L (22-30); Chloride 97 mmol/L (98-107); Estimated CRCL calculation 41 ml/min; Estimated Glomerular Filt Rate 51; Glucose 83 mg/dL (65-110); Potassium 4.4 mmol/L (3.4-5.0); Sodium 131 mmol/L (137-145)
[2024-03-24 07:28] LABS: INR 3.1; Prothrombin Time 32.6 Seconds (11.1-14.7)
[2024-03-24] MEDS: ACETYLCYSTEINE 20% INHAL SOLN 800 MG/4 ML VIAL 200 MG INHALATION (07:40)
[2024-03-24] MEDS: HYDROcodone/acetaminophen (*CRX) 5-325 MG TABLET 1 TAB PO ×2 (08:16→20:59)
[2024-03-24] MEDS: polyethylene glycoL 3350 17 GM POWD.PACK PO (08:19)
[2024-03-24] MEDS: METOPROLOL TARTRATE 50 MG TAB PO ×3 (08:20→17:38)
[2024-03-24] MEDS: VENLAFAXINE HCL XR 75 MG CAP.ER.24H 150 MG PO (08:20)
[2024-03-24] MEDS: GABAPENTIN 300 MG CAPSULE PO ×2 (08:20→20:59)
[2024-03-24] MEDS: methiMAzole 5 MG TAB PO (08:20)
[2024-03-24] MEDS: CYANOCOBALAMIN 1,000 MCG TABLET 1000 MCG PO (08:20)
[2024-03-24] MEDS: PANTOPRAZOLE 40 MG TABLET PO (08:20)
[2024-03-24] MEDS: FUROSEMIDE 20 MG TABLET PO (08:21)
[2024-03-24] MEDS: guaiFENesin 12 HR 600 MG TABCR 1200 MG PO ×2 (08:21→20:59)
[2024-03-24] MEDS: CHOLECALCIFEROL 1,000 UNITS TABLET 1000 UNITS PO (08:21)
[2024-03-24] MEDS: CINACALCET PO (08:22)
[2024-03-24] MEDS: DICLOFENAC SODIUM 1% 100 GM GEL (*BKC) 1 APPLIC TOPICAL ×4 (08:23→21:00)
--- NOTE | 2024-03-24 09:40 | PCOTNOTE ---
Attempted to see PAtient at this time. Patient declined. Patient states she is so tired, feeling bad and can not move right now.
--- NOTE | 2024-03-24 12:28 | P.PNIM_ITS ---
Progress Note: A&P Assessment and Plan (1) Mechanical heart valve present: Code(s): Z95.2 - Presence of prosthetic heart valve Status: Acute Assessment and Plan: 03/21 : I assumed care today. Patient INR is 3.1. Patient target INR is 2.5-3. Currently warfarin is on hold. Patient is also on Lovenox 80 mg b.i.d.. Since patient is already over therapeutic INR and in spite of receiving Lovenox makes her over anticoagulated. So today discontinued Lovenox. Given her warfarin 5 mg x 1 and possibly restart her home warfarin dosage 9mg from tomorrow. I performed CT chest/abdomen/pelvis which shows hematoma in the left anterior abdominal wall 3 x 2.5 cm. Discussed the goal of care with the nursing team. Patient wants some time to decide on her code status. 03/22: Surgery evaluated the patient under report overlying skin appears intact and there is no signs of infection. No indication for surgical intervention at this time. Patient has some cough and congestion. Patient is already on Mucinex, cornet. Ordered Xopenex around the clock for 2 days and Mucomyst b.i.d.. Discussed with the pharmacist and resume her home dose 6 mg not the 9 mg from today. Patient underwent a Lexiscan today 03/23: INR 3.3. Holding warfarin home dose is 6 mg. Hematoma of the abdominal wall has been evaluated by the surgery and currently does not need surgical intervention. Patient underwent Lexiscan yesterday which shows: 1. No definite ischemia or infarct. 2. Normal left ventricular ejection fraction measuring 56%. 03/24: Today patient is complaining about neck pain. Ordered Cervical CT. INR is 3.1, holding warfarin. Lexiscan is negative.In regards to hematoma no indication for surgical intervention at this time. Audible mechanical heart valve. INR subtherapeutic for several days, 1.5, 1.4, 1 today. Next of Kin, PCP manages INR and warfarin doses for her. Next of Kin, Anshul coordinates with the office. The last 2 weeks before admission she was taking 6 mg thursday-, 5mg thursday, sat, sun. Generally has INR checks ever 2 weeks Goal INR 2.5-3.5 with her mechanical valve. Izzy reports 9mg daily is a higher dose than she has needed previously --Started a heparin drip with a bolus for subtherapeutic INR --Follow CBC since trending down but may be dilutional. Stable overnight --Warfarin 8mg<9mg daily --Daily INR, closer to goal --Coordinate INR checks & follow up plan with PCP's office, Dr. Sanjeev Rosenberg 03/07 1.5 03/08 Warfarin 6mg 03/09 1.4 Warfarin 6mg 03/10 1 Warfarin 8mg 03/11 1.7 Warfarin 9mg 03/12 2.1 & 2.2 Warfarin 9mg (lab said it was likely run twice for a precision check) 03/14: * 3.9 - Will hold tonight's dose. * Continue to trend daily INR's * Therapeutically dosed Lovenox is discontinued at this time as pt has been receiving it as a bridge. 03/15 * INR 4.1 * Continue to hold Warfarin * Continue to trend daily INR * Reports passing a small amount of bright red blood today after bowel movement * Continue to monitor. * Patient on Augmentin which can make therapeutic trend challenging 03/16 * INR 3.9 * Continue to hold Warfarin 03/17 * INR 3.3 * Continue to hold Warfarin 03/18 * INR 3.4 * Continue to hold Warfarin for now 03/19 * INR 3.5 * Continue to hold warfarin 03/20 * INR 3.2 today * Continue to hold Warfarin 03/21 INR 3.1 Discontinue Lovenox due to over anticoagulation Supratherapeutic INR 3.1 Hold warfarin Evidence of hematoma in the left anterior abdominal wall 3 x 2.5 cm (2) Palpitations: Code(s): R00.2 - Palpitations Status: Acute Assessment and Plan: - Likely due to PAF with RVR. - Better after hydration and resuming home meds. 03/14/24 * Rate now controlled significantly better. * Continue Telemetry. * Continue to monitor. 03/15/24 * Rate controlled in the 's * Discontinue telemetry * Hold Warfarin for supratherapeutic INR 03/16 * Continue to hold Warfarin (3) Acute kidney injury: Code(s): N17.9 - Acute kidney failure, unspecified Status: Acute Assessment and Plan: Ddx pre-renal vs poor PO intake vs meds vs other. s/p 500 bolus with tachycardia --Resumed lasix --Creatinine stable 03/14/24: * Continue Lasix as ordered * Creatinine today 1.2, at baseline. * Continue to trend and monitor. 03/15/23: * Creatinine 1.16 currently at baseline 03/16 * Creatinine 1.33 03/17 * Creatinine 1.41 03/18 * stable, near baseline (4) HTN (hypertension): Qualifiers: Hypertension type: primary hypertension Qualified Code(s): I10 - Essential (primary) hypertension Code(s): I10 - Essential (primary) hypertension Status: Acute Assessment and Plan: - Appears well controlled. - Continue metoprolol, changed from XL to IR for titration - Follow VS 03/14/24: * Continuing to trend and monitor. Stable 03/15/24: * Blood pressures ranging 125/54-150/68 * Continue Metoprolol (5) Hyperlipidemia: Qualifiers: Hyperlipidemia type: mixed hyperlipidemia Qualified Code(s): E78.2 - Mixed hyperlipidemia Code(s): E78.5 - Hyperlipidemia, unspecified Status: Acute Assessment and Plan: * continue simvastatin (6) Shortness of breath: Code(s): R06.02 - Shortness of breath Status: Acute Assessment and Plan: Mildly tachypneic. Not obviously overloaded on exam, likely 2/2 pneumonia --Started heparin drip, if not resolved consider a CT r/o PE, but is on warfarin chronically for mechanical heart valve --Treatment of pneumonia and heart failure, rate control afib --PEP therapy for airway clearance 03/14/24: * Continue Unasyn for underlying cause of PNA. * Wean oxygen for sats >90%. Nursing order placed. * Continue to trend. 03/15/23: * Will change to Augmentin today * Currently on 2L NC * Continue to wean for a saturation greater than 90%. 03/16 * Continue to wean O2 * Currently on 2L NC * lasix 40 mg IVP given today 03/17 * Currently on room air * Will add home dose of 20 mg Lasix oral (7) Anemia: Code(s): D64.9 - Anemia, unspecified Status: Acute Assessment and Plan: Blood count trending down since admission but may be dilutional 14.2>11.1 Iron panel showing iron deficiency anemia, Total Iron and Tsat low. B12 636. LDH 245 --iron sucrose 300mg x3 doses --Follow CBC --If downtrending would need GI consult on chronic anticoagulation 03/14/24: * Hgb further declined today to 10.5. * Small drop, continue to monitor. * Pt just finished her third dose of Venofer. * Occult blood ordered from stool. * Consider GI consult if further declination as she is on chronic anticoagulation. * Pt's INR today is 3.9. Her dose of Coumadin for tonight is held and will need restarted tomorrow if applicable. In addition, the pt's Therapeutically dosed bridge Lovenox is discontinued today. * Monitor for any s/s of acute bleeding. 03/15/23: * Hgb 10.3 today * Patient had 3 doses of Venofer * collect occult blood stool 03/16 * No real change, Hgb 10.9 (8) Heart failure, diastolic, acute on chronic: Code(s): I50.33 - Acute on chronic diastolic (congestive) heart failure Status: Acute Assessment and Plan: 08/24/23 Echo: TDS. EF 45%, biatrial enlargement, suspect (YADIRA 1.4 cm2), mod MR, mild-mod TR. s/p 500ml fluid bolus, now back on IV lasix NT-proBNP 10,000 Resume lasix, 20mg IV daily & increase as able TTE 03/14/24: * Chronic in nature. * Appears euvolemic. * Continue Lasix 03/15/23: * Will increase to 40 mg IVP lasix today * Course bilaterally with peripheral swelling 03/16 * continue Lasix 03/17 * Transition to oral Lasix * Appears euvolemic 03/18 * Flipped into A fib with RVR today * Lungs sounding course * Will repeat CXR now * Last Echo on 03/11/24 shown LVEF of 3-40% 03/19 * Back in NSR * Continue telemetry monitoring * CXR was negative * proBNP elevated, however lung sounds are clear 03/20 * Flipped back into A fib RVR overnight * Repeat EKG showing new LBBB--Cardiology was notified. * Mild troponin bump--likely demand ischemia * Plan for Lexiscan stress test tomorrow to further evaluate (9) Pneumonia: Code(s): J18.9 - Pneumonia, unspecified organism Status: Acute Assessment and Plan: Resolved. Hospital associated pneumonia. Chest x-ray showed possible RLL pneumonia. Has crackles on exam. Intermittent fevers. Resolved today after starting unasyn. On room air --Started Unasyn, change to augmentin if improving --If new oxygen requirements, broaden to Cefepime/Vanc/Flagyl --Also has a sore throat, checking strep culture. Chlorseptic drops & tylenol prn --Urine for strep pneumo --Follow up chest x-ray if new oxygen requirement or not resolving --Staph screen. Can broaden to Cefepime/Vanc if worsening --Sputum culture if able to collect. Would only use to guide treatment if not improving with current antibiotics 03/14/24: * Continue Unasyn. Could likely switch to oral Augmentin tomorrow. 03/15/24: * Unasyn changed to Augmentin 03/18/24 * Augmentin finished today (10) Atrial fibrillation with RVR: Code(s): I48.91 - Unspecified atrial fibrillation Status: Acute Assessment and Plan: Home metoprolol ER 25mg daily Resting HR 70s-90s, 100-130's with activity on 03/10. Rate controlled with increased dose of metoprolol and a 500ml fluid bolus - Change Metoprolol ER 25mg daily to metoprolol tartrate 12.5mg q6 and titrate. 5mg IV metoprolol --INR goal as noted for mechanical heart valve. INR can be affected by antibiot ics --Cardiology consulted, appreciate recommendations 03/15/24: * Rate controlled in the 90's * Continue Metoprolol * D/C continuous tele * Hold Warfarin due to supratherapeutic INR 03/17 * Continue to hold Warfarin 03/18 * Went back into Afib RVR today * Continue to hold Warfarin due to supratherapeutic INR * Will increase Metoprolol to 25 mg q6h for better rate control * Continue tele * Cardiology reconsulted * repeating CXR 03/19 * In NSR now, continue Metoprolol 25 mg q6h * Continue tele for now * Cardiology following * CXR negative 03/20 * Flipped back into A fib RVR overnight * Repeat EKG showing new LBBB--Cardiology was notified. * Mild troponin bump--likely demand ischemia * Plan for Lexiscan stress test tomorrow to further evaluate 03/21 Metoprolol tartrate 50 mg p.o. t.i.d. Warfarin 5 mg p.o. q.d. Subjective Date/time seen: 03/24/24 12:28 Interval history: Today patient complains about cervical spine. Ordered CT cervical. INR still in supratherapeutic and holding warfarin. Called her Daughter in law to give the updates but she was unable to reach. Exam Narrative: General: In no acute distress, well nourished Cardiac: Normal S1 and S2. NSR, No murmur, gallops or friction rubs, peripheral pulses intact. Respiratory: Lungs clear bilaterally , no adventitious lung sounds, currently on room air, raspy cough Gastrointestinal: soft, non-distended, non-tender, normoactive bowel sounds. : voiding without difficulty. Neuro: Alert and oriented x4 Objective Data Vital Signs Vital Signs: Vital Signs - 24 hr 03/23/24 12:31 03/23/24 14:19 03/23/24 14:27 Temperature Pulse Rate 103 H 89 95 Respiratory Rate 20 20 Blood Pressure Pulse Oximetry Oxygen Delivery 03/23/24 15:24 03/23/24 16:00 03/23/24 16:27 Temperature 98.9 F Pulse Rate 89 88 94 Respiratory Rate 19 Blood Pressure 118/60 Pulse Oximetry 94 Oxygen Delivery 03/23/24 20:00 03/23/24 20:55 03/23/24 20:59 Temperature Pulse Rate 92 91 Respiratory Rate 19 Blood Pressure Pulse Oximetry 95 Oxygen Delivery Room Air 03/23/24 21:04 03/23/24 21:16 03/23/24 21:23 Temperature 98.0 F Pulse Rate 92 90 Respiratory Rate 19 20 Blood Pressure 122/59 L Pulse Oximetry 100 Oxygen Delivery Room Air 03/24/24 00:00 03/24/24 02:39 03/24/24 02:46 Temperature Pulse Rate 91 92 94 Respiratory Rate 19 19 Blood Pressure Pulse Oximetry Oxygen Delivery 03/24/24 04:00 03/24/24 05:39 03/24/24 07:42 Temperature 97.5 F L Pulse Rate 93 106 H 90 Respiratory Rate 20 16 Blood Pressure 106/65 Pulse Oximetry 94 Oxygen Delivery 03/24/24 07:44 03/24/24 07:59 03/24/24 08:02 Temperature Pulse Rate 90 120 H Respiratory Rate 16 Blood Pressure Pulse Oximetry 94 Oxygen Delivery Room Air 03/24/24 08:20 Temperature Pulse Rate 121 H Respiratory Rate Blood Pressure Pulse Oximetry Oxygen Delivery Intake/Output Intake/Output: Intake & Output 03/21/24 03/22/24 03/23/24 03/24/24 23:59 23:59 23:59 23:59 Intake Total 8623 518 1551 470 Output Total 800 350 400 300 Balance 270 90 660 170 Meds/Results Medications: Active Medications Generic Name Dose Route Start Last Admin Trade Name Freq PRN Reason Stop Dose Admin Acetaminophen 1,000 mg 03/10/24 10:04 03/22/24 12:56 Acetaminophen 500 Mg Tablet PO 1,000 mg Q6H PRN Administration Mild Pain (1-3) or Fever Hydrocodone Bitart/Acetaminophen 1 tab 03/08/24 17:21 03/24/24 08:16 Hydrocodone/Acetaminophen (*Crx) 5-325 Mg Tablet PO 1 tab Q6H PRN Administration Pain Rated 4-6 Acetylcysteine 200 mg 03/22/24 20:00 03/24/24 07:40 Acetylcysteine 20% Inhal Soln 800 Mg/4 Ml Vial INHALATION 200 mg Q12HRT IAN Administration Alprazolam 0.25 mg 03/08/24 17:21 03/20/24 21:42 Alprazolam (*Crx) 0.25 Mg Tablet PO 0.25 mg HS PRN Administration Anxiety Benzocaine 1 lozenge 03/10/24 18:17 03/16/24 08:17 Benzocaine/Menthol (*Bkc) 18 Ea Lozenge PO 1 lozenge PRN PRN Administration Sore Throat Cyanocobalamin 1,000 mcg 03/09/24 09:00 03/24/24 08:20 Cyanocobalamin 1,000 Mcg Tablet PO 1,000 mcg DAILY IAN Administration Cyclobenzaprine HCl 5 mg 03/19/24 14:03 03/20/24 15:42 Cyclobenzaprine Hcl 5 Mg Tablet PO 5 mg Q8H PRN Administration Muscle Spasm Diclofenac Sodium 1 applic 03/10/24 10:04 03/22/24 09:14 Diclofenac Sodium 1% 100 Gm Gel (*Bkc) TOPICAL 1 applic QID PRN Administration joint pain Diclofenac Sodium 1 applic 03/19/24 17:00 03/24/24 08:23 Diclofenac Sodium 1% 100 Gm Gel (*Bkc) TOPICAL 1 applic QID IAN Administration Furosemide 20 mg 03/16/24 09:00 03/24/24 08:21 Furosemide 20 Mg Tablet PO 20 mg DAILY IAN Administration Gabapentin 300 mg 03/08/24 21:00 03/24/24 08:20 Gabapentin 300 Mg Capsule PO 300 mg Q12HR IAN Administration Guaifenesin 1,200 mg 03/13/24 12:50 03/24/24 08:21 Guaifenesin 12 Hr 600 Mg Tabcr PO 1,200 mg Q12HR IAN Administration Guaifenesin/Dextromethorphan 10 ml 03/11/24 23:14 03/14/24 07:53 Guaifenesin/Dextromethorphan 10 Ml Udc PO 10 ml Q4H PRN Administration Cough Hydromorphone HCl 0.2 mg 03/21/24 11:31 03/21/24 11:54 Hydromorphone Hcl Inj (*Crx) 1 Mg/Ml Syr IV PUSH 0.2 mg Q6H PRN Administration Pain Rated 7-10 Levalbuterol HCl 1.25 mg 03/22/24 14:00 03/24/24 07:39 Levalbuterol Neb 1.25 Mg/3 Ml INHALATION 1.25 mg Q6HRT IAN Administration Melatonin 5 mg 03/15/24 21:00 03/23/24 21:21 Melatonin 5 Mg Tablet PO 5 mg HS IAN Administration Methimazole 5 mg 03/09/24 09:00 03/24/24 08:20 Methimazole 5 Mg Tab PO 5 mg DAILY IAN Administration Metoprolol Tartrate 50 mg 03/21/24 09:00 03/24/24 08:20 Metoprolol Tartrate 50 Mg Tab PO 50 mg TID IAN Administration Cinacalcet 15 Mg 0 each 03/10/24 09:00 03/24/24 08:22 Tablet PO 04/09/24 08:59 1 each DAILY IAN Administration Pantoprazole Sodium 40 mg 03/09/24 09:00 03/24/24 08:20 Pantoprazole 40 Mg Tablet PO 40 mg QAM IAN Administration Polyethylene Glycol 17 gm 03/22/24 09:00 03/24/24 08:19 Polyethylene Glycol 3350 17 Gm Powd.Pack PO 17 gm QAM IAN Administration Potassium Chloride 10 meq 03/08/24 21:00 03/23/24 21:22 Potassium Chloride 10 Meq Er Tablet PO 10 meq HS IAN Administration Simvastatin 10 mg 03/08/24 21:00 03/23/24 21:21 Simvastatin 10 Mg Tablet PO 10 mg HS IAN Administration Venlafaxine HCl 150 mg 03/09/24 09:00 03/24/24 08:20 Venlafaxine Hcl Xr 75 Mg Cap.Er.24h PO 150 mg DAILY IAN Administration Vitamin D 1,000 units 03/09/24 09:00 03/24/24 08:21 Cholecalciferol 1,000 Units Tablet PO 1,000 units DAILY IAN Administration Warfarin Sodium 9 mg 03/11/24 17:00 03/13/24 17:40 Warfarin (*Pbkc) 3 Mg Tablet PO 9 mg DAILY@1700 IAN Administration Warfarin Sodium 6 mg 03/22/24 17:00 03/22/24 17:59 Warfarin (*Pbkc) 3 Mg Tablet PO 6 mg DAILY@1700 [facility] Administration Radiology Results: ITS Impressions Chest X-Ray 03/20/24 06:33 IMPRESSION: No acute cardiopulmonary process or significant change since 03/18/2024 Chest/Abdomen/Pelvis CT 03/21/24 12:36 IMPRESSION: CHEST: 1. No acute cardiopulmonary pathology. 2. Compression fracture of T6. MRI evaluation advised. ABDOMEN/PELVIS: 1. Hematoma in the left anterior abdominal wall. 2. Constipation. Lexiscan Stress Test 03/22/24 12:28 IMPRESSION: 1. No definite ischemia or infarct. 2. Normal left ventricular ejection fraction measuring 56%. Lumbar Spine X-Ray 03/23/24 13:40 IMPRESSION: 1. Mild lumbar spondylosis. 2. Lumbar dextroscoliosis. Labs Labs: Laboratory Results - last 24 hr 03/24/24 03/24/24 05:58 07:09 WBC 9.0 RBC 2.72 L Hgb 8.7 L Hct 28.3 L MCV 104.0 H MCH 32.0 MCHC 30.7 L RDW 13.9 Plt Count 290 MPV 12.9 H PT 32.6 H INR 3.1 Sodium 131 L Potassium 4.4 Chloride 97 L Carbon Dioxide 30 Anion Gap 4 BUN 21 H Creatinine 1.04 H Estim Creat Clear Calc 41 Estimated GFR 51 L Glucose 83 Calcium 9.3 Total Bilirubin 0.7 AST 56 H ALT 38 H Alkaline Phosphatase 93 Total Protein 6.0 L Albumin 3.0 L Hospitalist MIPS Advance Care Plan I have confirmed that the patient's Advanced Care Plan is present, code status is documented, or surrogate decision maker is listed in patient medical record.: Yes Medication Reconciliation I have utilized all available resources to obtain, update and review the patients current medications (includes all prescriptions, OTC, herbals, cannabis, and nutritional supplements).: Yes
--- NOTE | 2024-03-24 15:21 | PCOTNOTE ---
Attempted again this afternnon. Patient declined, stated, 'I'm to sick today, try back tomorrow .
--- NOTE | 2024-03-24 20:57 | PCRCNOTE ---
Patient states 0200 updraft treatment left her short of breath. This RT omitted Mucomyst and just administered xopenex. Pt states she feels a little better.
[2024-03-24] MEDS: SIMVASTATIN 10 MG TABLET PO (20:59)
[2024-03-24] MEDS: MELATONIN 5 MG TABLET PO (20:59)
[2024-03-24] MEDS: POTASSIUM CHLORIDE 10 MEQ ER TABLET PO (20:59)
[2024-03-25] VITALS (24 sets, daily range): BP systolic 102–119; BP diastolic 51–72; PULSE 58–169; RESP 18–24; TEMP 36.6–37.1; O2SAT 90–100
[2024-03-25] MEDS: LEVALBUTEROL NEB 1.25 MG/3 ML INHALATION ×3 (02:10→20:35)
[2024-03-25] MEDS: HYDROcodone/acetaminophen (*CRX) 5-325 MG TABLET 1 TAB PO (06:42)
[2024-03-25 06:47] LABS: Hematocrit 27.6 % (37.0-47.0); Hemoglobin 8.6 g/dL (12.0-15.0); Mean Corpuscular HGB Conc 31.2 g/dl (32-36); Mean Corpuscular Volume 102.6 fl (80-100); Mean Platelet Volume 12.5 fl (7.4-10.4); Platelet Count Result 307 k/mm3 (150-375); Red Blood Count 2.69 M/mm3 (4.2-5.4); Red Cell Distribution Width 13.7 % (11.5-14.5); White Blood Count 9.5 K/mm3 (4.5-10.0)
[2024-03-25 06:57] LABS: INR 2.5; Prothrombin Time 27.5 Seconds (11.1-14.7)
[2024-03-25 06:58] LABS: Alanine Aminotransferase 49 U/L (6-35); Albumin Level 3.1 g/dL (3.5-5.1); Alkaline Phosphatase 89 U/L (38-126); Anion Gap 4 mmol/L (4-12); Aspartate Amino Transferase 76 U/L (14-36); Bilirubin,Total 0.8 mg/dL (0.2-1.3); Blood Urea Nitrogen 18 mg/dL (7-17); Calcium 9.6 mg/dL (8.4-10.2); Carbon Dioxide 29 mmol/L (22-30); Chloride 98 mmol/L (98-107); Estimated CRCL calculation 44 ml/min; Estimated Glomerular Filt Rate 56; Glucose 76 mg/dL (65-110); Potassium 4.2 mmol/L (3.4-5.0); Sodium 131 mmol/L (137-145)
[2024-03-25] MEDS: ACETYLCYSTEINE 20% INHAL SOLN 800 MG/4 ML VIAL 200 MG INHALATION ×2 (07:36→20:35)
[2024-03-25] MEDS: CYANOCOBALAMIN 1,000 MCG TABLET 1000 MCG PO (08:00)
[2024-03-25] MEDS: CINACALCET PO (08:01)
[2024-03-25] MEDS: CHOLECALCIFEROL 1,000 UNITS TABLET 1000 UNITS PO (08:02)
[2024-03-25] MEDS: guaiFENesin 12 HR 600 MG TABCR 1200 MG PO ×2 (08:02→20:52)
[2024-03-25] MEDS: PANTOPRAZOLE 40 MG TABLET PO (08:02)
[2024-03-25] MEDS: METOPROLOL TARTRATE 50 MG TAB PO (08:02)
[2024-03-25] MEDS: GABAPENTIN 300 MG CAPSULE PO ×2 (08:02→20:52)
[2024-03-25] MEDS: VENLAFAXINE HCL XR 75 MG CAP.ER.24H 150 MG PO (08:02)
[2024-03-25] MEDS: methiMAzole 5 MG TAB PO (08:02)
[2024-03-25] MEDS: FUROSEMIDE 20 MG TABLET PO (08:03)
[2024-03-25] MEDS: polyethylene glycoL 3350 17 GM POWD.PACK PO (08:03)
[2024-03-25] MEDS: DICLOFENAC SODIUM 1% 100 GM GEL (*BKC) 1 APPLIC TOPICAL ×4 (08:04→20:53)
--- NOTE | 2024-03-25 08:09 | P.PNIM_ITS ---
Progress Note: A&P Assessment and Plan (1) Mechanical heart valve present: Code(s): Z95.2 - Presence of prosthetic heart valve Status: Acute Assessment and Plan: 03/21 : I assumed care today. Patient INR is 3.1. Patient target INR is 2.5-3. Currently warfarin is on hold. Patient is also on Lovenox 80 mg b.i.d.. Since patient is already over therapeutic INR and in spite of receiving Lovenox makes her over anticoagulated. So today discontinued Lovenox. Given her warfarin 5 mg x 1 and possibly restart her home warfarin dosage 9mg from tomorrow. I performed CT chest/abdomen/pelvis which shows hematoma in the left anterior abdominal wall 3 x 2.5 cm. Discussed the goal of care with the nursing team. Patient wants some time to decide on her code status. 03/22: Surgery evaluated the patient under report overlying skin appears intact and there is no signs of infection. No indication for surgical intervention at this time. Patient has some cough and congestion. Patient is already on Mucinex, cornet. Ordered Xopenex around the clock for 2 days and Mucomyst b.i.d.. Discussed with the pharmacist and resume her home dose 6 mg not the 9 mg from today. Patient underwent a Lexiscan today 03/23: INR 3.3. Holding warfarin home dose is 6 mg. Hematoma of the abdominal wall has been evaluated by the surgery and currently does not need surgical intervention. Patient underwent Lexiscan yesterday which shows: 1. No definite ischemia or infarct. 2. Normal left ventricular ejection fraction measuring 56%. 03/24: Today patient is complaining about neck pain. Ordered Cervical CT. INR is 3.1, holding warfarin. Lexiscan is negative.In regards to hematoma no indication for surgical intervention at this time. 03/25: Today morning rapid response was called due to increased heart rate in 170s/180s. During my evaluation patient heart rate was already down to 110s/120s. Patient was evaluated by the Cardiology at the time who who started her on sotalol 80 mg p.o. b.i.d.. Patient is already on metoprolol 25 mg p.o. t.i.d.. Patient INR is 2.5 and restarted her home warfarin does 6 mg. Possible discharge to SNF after stabilizing her heart rate. Audible mechanical heart valve. INR subtherapeutic for several days, 1.5, 1.4, 1 today. Next of Kin, PCP manages INR and warfarin doses for her. Next of Kin, Anshul coordinates with the office. The last 2 weeks before admission she was taking 6 mg thursday-, 5mg thursday, sat, sun. Generally has INR checks ever 2 weeks Goal INR 2.5-3.5 with her mechanical valve. Izzy reports 9mg daily is a higher dose than she has needed previously --Started a heparin drip with a bolus for subtherapeutic INR --Follow CBC since trending down but may be dilutional. Stable overnight --Warfarin 8mg<9mg daily --Daily INR, closer to goal --Coordinate INR checks & follow up plan with PCP's office, Dr. Sanjeev Rosenberg 03/07 1.5 03/08 Warfarin 6mg 03/09 1.4 Warfarin 6mg 03/10 1 Warfarin 8mg 03/11 1.7 Warfarin 9mg 03/12 2.1 & 2.2 Warfarin 9mg (lab said it was likely run twice for a precision check) 03/14: * 3.9 - Will hold tonight's dose. * Continue to trend daily INR's * Therapeutically dosed Lovenox is discontinued at this time as pt has been receiving it as a bridge. 03/15 * INR 4.1 * Continue to hold Warfarin * Continue to trend daily INR * Reports passing a small amount of bright red blood today after bowel movement * Continue to monitor. * Patient on Augmentin which can make therapeutic trend challenging 03/16 * INR 3.9 * Continue to hold Warfarin 03/17 * INR 3.3 * Continue to hold Warfarin 03/18 * INR 3.4 * Continue to hold Warfarin for now 03/19 * INR 3.5 * Continue to hold warfarin 03/20 * INR 3.2 today * Continue to hold Warfarin 03/21 INR 3.1 Discontinue Lovenox due to over anticoagulation Supratherapeutic INR 3.1 Hold warfarin Evidence of hematoma in the left anterior abdominal wall 3 x 2.5 cm (2) Palpitations: Code(s): R00.2 - Palpitations Status: Acute Assessment and Plan: - Likely due to PAF with RVR. - Better after hydration and resuming home meds. (3) Acute kidney injury: Code(s): N17.9 - Acute kidney failure, unspecified Status: Acute Assessment and Plan: Ddx pre-renal vs poor PO intake vs meds vs other. s/p 500 bolus with tachycardia --Resumed lasix --Creatinine stable (4) HTN (hypertension): Qualifiers: Hypertension type: primary hypertension Qualified Code(s): I10 - Essential (primary) hypertension Code(s): I10 - Essential (primary) hypertension Status: Acute Assessment and Plan: - Appears well controlled. - Continue metoprolol, changed from XL to IR for titration - Follow VS (5) Hyperlipidemia: Qualifiers: Hyperlipidemia type: mixed hyperlipidemia Qualified Code(s): E78.2 - Mixed hyperlipidemia Code(s): E78.5 - Hyperlipidemia, unspecified Status: Acute Assessment and Plan: * continue simvastatin (6) Shortness of breath: Code(s): R06.02 - Shortness of breath Status: Acute Assessment and Plan: Mildly tachypneic. Not obviously overloaded on exam, likely 2/2 pneumonia --Started heparin drip, if not resolved consider a CT r/o PE, but is on warfarin chronically for mechanical heart valve --Treatment of pneumonia and heart failure, rate control afib --PEP therapy for airway clearance (7) Anemia: Code(s): D64.9 - Anemia, unspecified Status: Acute Assessment and Plan: Blood count trending down since admission but may be dilutional 14.2>11.1 Iron panel showing iron deficiency anemia, Total Iron and Tsat low. B12 636. LDH 245 --iron sucrose 300mg x3 doses --Follow CBC --If downtrending would need GI consult on chronic anticoagulation (8) Heart failure, diastolic, acute on chronic: Code(s): I50.33 - Acute on chronic diastolic (congestive) heart failure Status: Acute Assessment and Plan: 08/24/23 Echo: TDS. EF 45%, biatrial enlargement, suspect (YADIRA 1.4 cm2), mod MR, mild-mod TR. s/p 500ml fluid bolus, now back on IV lasix NT-proBNP 10,000 Resume lasix, 20mg IV daily & increase as able TTE 03/14/24: * Chronic in nature. * Appears euvolemic. * Continue Lasix 03/15/23: * Will increase to 40 mg IVP lasix today * Course bilaterally with peripheral swelling 03/16 * continue Lasix 03/17 * Transition to oral Lasix * Appears euvolemic 03/18 * Flipped into A fib with RVR today * Lungs sounding course * Will repeat CXR now * Last Echo on 03/11/24 shown LVEF of 3-40% 03/19 * Back in NSR * Continue telemetry monitoring * CXR was negative * proBNP elevated, however lung sounds are clear 03/20 * Flipped back into A fib RVR overnight * Repeat EKG showing new LBBB--Cardiology was notified. * Mild troponin bump--likely demand ischemia * Plan for Lexiscan stress test tomorrow to further evaluate 03/22: No significant finding in Lexiscan (9) Pneumonia: Code(s): J18.9 - Pneumonia, unspecified organism Status: Acute Assessment and Plan: Resolved. Hospital associated pneumonia. Chest x-ray showed possible RLL pneumonia. Has crackles on exam. Intermittent fevers. Resolved today after starting unasyn. On room air --Started Unasyn, change to augmentin if improving --If new oxygen requirements, broaden to Cefepime/Vanc/Flagyl --Also has a sore throat, checking strep culture. Chlorseptic drops & tylenol prn --Urine for strep pneumo --Follow up chest x-ray if new oxygen requirement or not resolving --Staph screen. Can broaden to Cefepime/Vanc if worsening --Sputum culture if able to collect. Would only use to guide treatment if not improving with current antibiotics 03/14/24: * Continue Unasyn. Could likely switch to oral Augmentin tomorrow. 03/15/24: * Unasyn changed to Augmentin 03/18/24 * Augmentin finished today (10) Atrial fibrillation with RVR: Code(s): I48.91 - Unspecified atrial fibrillation Status: Acute Assessment and Plan: Home metoprolol ER 25mg daily Resting HR 70s-90s, 100-130's with activity on 03/10. Rate controlled with increased dose of metoprolol and a 500ml fluid bolus - Change Metoprolol ER 25mg daily to metoprolol tartrate 12.5mg q6 and titrate. 5mg IV metoprolol --INR goal as noted for mechanical heart valve. INR can be affected by antibiotics --Cardiology consulted, appreciate recommendations 03/15/24: * Rate controlled in the 's * Continue Metoprolol * D/C continuous tele * Hold Warfarin due to supratherapeutic INR 03/17 * Continue to hold Warfarin 03/18 * Went back into Afib RVR today * Continue to hold Warfarin due to supratherapeutic INR * Will increase Metoprolol to 25 mg q6h for better rate control * Continue tele * Cardiology reconsulted * repeating CXR 03/19 * In NSR now, continue Metoprolol 25 mg q6h * Continue tele for now * Cardiology following * CXR negative 03/20 * Flipped back into A fib RVR overnight * Repeat EKG showing new LBBB--Cardiology was notified. * Mild troponin bump--likely demand ischemia * Plan for Lexiscan stress test tomorrow to further evaluate 03/21 Metoprolol tartrate 50 mg p.o. t.i.d. Warfarin 5 mg p.o. q.d. 03/25: Today morning rapid response was called due to increased heart rate in 170s/180s. During my evaluation patient heart rate was already down to 110s/120s. Patient was evaluated by the Cardiology at the time who who started her on sotalol 80 mg p.o. b.i.d.. Patient is already on metoprolol 25 mg p.o. t.i.d.. Subjective Date/time seen: 03/25/24 08:09 Interval history: Today morning rapid response was called due to increased heart rate in 170s/180s. During my evaluation patient heart rate was already down to 110s/120s. Patient was evaluated by the Cardiology at the time who who started her on sotalol 80 mg p.o. b.i.d.. Patient is already on metoprolol 25 mg p.o. t.i.d.. Patient INR is 2.5 and restarted her home warfarin does 6 mg. Review of Systems Review of Systems: All systems reviewed & are unremarkable except as noted in HPI and below Constitutional: Constitutional: Reports as per HPI and Reports no additional constitutional complaints Eyes: Eyes: Reports as per HPI and Reports no additional eye complaints ENT: Reports system reviewed and no additional complaints, except as documented and Reports as per HPI Cardiovascular: Cardiovascular: Reports as per HPI and Reports no additional cardiovascular complaints Respiratory: Respiratory: Reports as per HPI and Reports no additional respiratory complaints Gastrointestinal: Gastrointestinal: Reports as per HPI and Reports no additional gastrointestinal complaints Genitourinary: Genitourinary: Reports no additional female genitourinary complaints and Reports as per HPI Musculoskeletal: Musculoskeletal: Reports no additional musculoskeletal complaints and Reports as per HPI Integumentary/Breasts: Skin/Breast: Reports system reviewed and no additional complaints, except as docu and Reports as per HPI Neurologic: Reports system reviewed and no additional complaints, except as documented and Reports as per HPI Psychiatric: Psychiatric: Reports no additional psychiatric complaints and Reports as per HPI Exam Narrative: General: In no acute distress, well nourished Cardiac: Normal S1 and S2. NSR, No murmur, gallops or friction rubs, peripheral pulses intact. Respiratory: Lungs clear bilaterally , no adventitious lung sounds, currently on room air, raspy cough Gastrointestinal: soft, non-distended, non-tender, normoactive bowel sounds. : voiding without difficulty. Neuro: Alert and oriented x4 Objective Data Vital Signs Vital Signs: Vital Signs - 24 hr 03/24/24 08:20 03/24/24 08:20 03/24/24 12:00 Temperature Pulse Rate 121 H 88 Respiratory Rate Blood Pressure Pulse Oximetry 96 Oxygen Delivery Room Air 03/24/24 13:00 03/24/24 13:31 03/24/24 13:41 Temperature Pulse Rate 89 96 100 Respiratory Rate 16 16 Blood Pressure Pulse Oximetry Oxygen Delivery 03/24/24 14:00 03/24/24 17:38 03/24/24 20:00 Temperature 97.8 F Pulse Rate 89 92 Respiratory Rate 16 Blood Pressure 113/54 L Pulse Oximetry 98 Oxygen Delivery Room Air 03/24/24 20:00 03/24/24 20:47 03/24/24 20:53 Temperature Pulse Rate 86 88 88 Respiratory Rate 18 Blood Pressure Pulse Oximetry 96 Oxygen Delivery Room Air 03/24/24 20:59 03/24/24 21:07 03/25/24 00:00 Temperature 99.7 F H Pulse Rate 90 87 87 Respiratory Rate 18 24 H Blood Pressure 118/59 L Pulse Oximetry 97 Oxygen Delivery 03/25/24 02:10 03/25/24 02:18 03/25/24 04:00 Temperature Pulse Rate 87 88 116 H Respiratory Rate 18 18 Blood Pressure Pulse Oximetry Oxygen Delivery 03/25/24 05:56 03/25/24 07:37 03/25/24 07:37 Temperature 98.8 F Pulse Rate 60 119 H Respiratory Rate 20 18 Blood Pressure 114/55 L Pulse Oximetry 90 92 Oxygen Delivery Room Air 03/25/24 07:47 03/25/24 08:02 Temperature Pulse Rate 118 H 118 H Respiratory Rate 20 Blood Pressure Pulse Oximetry Oxygen Delivery Intake/Output Intake/Output: Intake & Output 03/22/24 03/23/24 03/24/24 03/25/24 23:59 23:59 23:59 23:59 Intake Total 440 1060 830 350 Output Total 350 400 300 300 Balance 90 660 530 50 Meds/Results Medications: Active Medications Generic Name Dose Route Start Last Admin Trade Name Freq PRN Reason Stop Dose Admin Acetaminophen 1,000 mg 03/10/24 10:04 03/22/24 12:56 Acetaminophen 500 Mg Tablet PO 1,000 mg Q6H PRN Administration Mild Pain (1-3) or Fever Hydrocodone Bitart/Acetaminophen 1 tab 03/08/24 17:21 03/25/24 06:42 Hydrocodone/Acetaminophen (*Crx) 5-325 Mg Tablet PO 1 tab Q6H PRN Administration Pain Rated 4-6 Acetylcysteine 200 mg 03/22/24 20:00 03/25/24 07:36 Acetylcysteine 20% Inhal Soln 800 Mg/4 Ml Vial INHALATION 200 mg Q12HRT IAN Administration Alprazolam 0.25 mg 03/08/24 17:21 03/20/24 21:42 Alprazolam (*Crx) 0.25 Mg Tablet PO 0.25 mg HS PRN Administration Anxiety Benzocaine 1 lozenge 03/10/24 18:17 03/16/24 08:17 Benzocaine/Menthol (*Bkc) 18 Ea Lozenge PO 1 lozenge PRN PRN Administration Sore Throat Cyanocobalamin 1,000 mcg 03/09/24 09:00 03/25/24 08:00 Cyanocobalamin 1,000 Mcg Tablet PO 1,000 mcg DAILY IAN Administration Cyclobenzaprine HCl 5 mg 03/19/24 14:03 03/20/24 15:42 Cyclobenzaprine Hcl 5 Mg Tablet PO 5 mg Q8H PRN Administration Muscle Spasm Diclofenac Sodium 1 applic 03/10/24 10:04 03/22/24 09:14 Diclofenac Sodium 1% 100 Gm Gel (*Bkc) TOPICAL 1 applic QID PRN Administration joint pain Diclofenac Sodium 1 applic 03/19/24 17:00 03/25/24 08:04 Diclofenac Sodium 1% 100 Gm Gel (*Bkc) TOPICAL 1 applic QID IAN Administration Furosemide 20 mg 03/16/24 09:00 03/25/24 08:03 Furosemide 20 Mg Tablet PO 20 mg DAILY IAN Administration Gabapentin 300 mg 03/08/24 21:00 03/25/24 08:02 Gabapentin 300 Mg Capsule PO 300 mg Q12HR IAN Administration Guaifenesin 1,200 mg 03/13/24 12:50 03/25/24 08:02 Guaifenesin 12 Hr 600 Mg Tabcr PO 1,200 mg Q12HR IAN Administration Guaifenesin/Dextromethorphan 10 ml 03/11/24 23:14 03/14/24 07:53 Guaifenesin/Dextromethorphan 10 Ml Udc PO 10 ml Q4H PRN Administration Cough Hydromorphone HCl 0.2 mg 03/21/24 11:31 03/21/24 11:54 Hydromorphone Hcl Inj (*Crx) 1 Mg/Ml Syr IV PUSH 0.2 mg Q6H PRN Administration Pain Rated 7-10 Levalbuterol HCl 1.25 mg 03/22/24 14:00 03/25/24 07:36 Levalbuterol Neb 1.25 Mg/3 Ml INHALATION 1.25 mg Q6HRT IAN Administration Melatonin 5 mg 03/15/24 21:00 03/24/24 20:59 Melatonin 5 Mg Tablet PO 5 mg HS IAN Administration Methimazole 5 mg 03/09/24 09:00 03/25/24 08:02 Methimazole 5 Mg Tab PO 5 mg DAILY IAN Administration Metoprolol Tartrate 50 mg 03/21/24 09:00 03/25/24 08:02 Metoprolol Tartrate 50 Mg Tab PO 50 mg TID IAN Administration Cinacalcet 15 Mg 0 each 03/10/24 09:00 03/25/24 08:01 Tablet PO 04/09/24 08:59 1 each DAILY IAN Administration Pantoprazole Sodium 40 mg 03/09/24 09:00 03/25/24 08:02 Pantoprazole 40 Mg Tablet PO 40 mg QAM IAN Administration Polyethylene Glycol 17 gm 03/22/24 09:00 03/25/24 08:03 Polyethylene Glycol 3350 17 Gm Powd.Pack PO 17 gm QAM IAN Administration Potassium Chloride 10 meq 03/08/24 21:00 03/24/24 20:59 Potassium Chloride 10 Meq Er Tablet PO 10 meq HS IAN Administration Simvastatin 10 mg 03/08/24 21:00 03/24/24 20:59 Simvastatin 10 Mg Tablet PO 10 mg HS IAN Administration Venlafaxine HCl 150 mg 03/09/24 09:00 03/25/24 08:02 Venlafaxine Hcl Xr 75 Mg Cap.Er.24h PO 150 mg DAILY IAN Administration Vitamin D 1,000 units 03/09/24 09:00 03/25/24 08:02 Cholecalciferol 1,000 Units Tablet PO 1,000 units DAILY IAN Administration Warfarin Sodium 9 mg 03/11/24 17:00 03/13/24 17:40 Warfarin (*Pbkc) 3 Mg Tablet PO 9 mg DAILY@1700 IAN Administration Warfarin Sodium 6 mg 03/22/24 17:00 03/22/24 17:59 Warfarin (*Pbkc) 3 Mg Tablet PO 6 mg DAILY@1700 IAN Administration Radiology Results: ITS Impressions Chest X-Ray 03/20/24 06:33 IMPRESSION: No acute cardiopulmonary process or significant change since 03/18/2024 Chest/Abdomen/Pelvis CT 03/21/24 12:36 IMPRESSION: CHEST: 1. No acute cardiopulmonary pathology. 2. Compression fracture of T6. MRI evaluation advised. ABDOMEN/PELVIS: 1. Hematoma in the left anterior abdominal wall. 2. Constipation. Lexiscan Stress Test 03/22/24 12:28 IMPRESSION: 1. No definite ischemia or infarct. 2. Normal left ventricular ejection fraction measuring 56%. Lumbar Spine X-Ray 03/23/24 13:40 IMPRESSION: 1. Mild lumbar spondylosis. 2. Lumbar dextroscoliosis. Cervical Spine CT 03/24/24 15:01 IMPRESSION: 1. Moderate cervical spondylosis, stable from 11/13/2020. 2. Cervicothoracic levoscoliosis. Labs Labs: Laboratory Results - last 24 hr 03/25/24 06:01 WBC 9.5 RBC 2.69 L Hgb 8.6 L Hct 27.6 L MCV 102.6 H MCH 32.0 MCHC 31.2 L RDW 13.7 Plt Count 307 MPV 12.5 H PT 27.5 H INR 2.5 Sodium 131 L Potassium 4.2 Chloride 98 Carbon Dioxide 29 Anion Gap 4 BUN 18 H Creatinine 0.96 Estim Creat Clear Calc 44 Estimated GFR 56 L Glucose 76 Calcium 9.6 Total Bilirubin 0.8 AST 76 H ALT 49 H Alkaline Phosphatase 89 Total Protein 7.0 Albumin 3.1 L Quality VTE Prophylaxis VTE prophylaxis: pharmacologic ordered Hospitalist [facility] Advance Care Plan I have confirmed that the patient's Advanced Care Plan is present, code status is documented, or surrogate decision maker is listed in patient medical record.: Yes Medication Reconciliation I have utilized all available resources to obtain, update and review the patients current medications (includes all prescriptions, OTC, herbals, cannabis, and nutritional supplements).: Yes
--- NOTE | 2024-03-25 08:22 | ECG_ITS ---
Test Date: 2024-03-25 08:29:27 Measurements Intervals [place] Rate: 121 P: -49 [place]: 242 QRS: -41 QRSD: 156 T: 136 QT: 338 QTc: 481 Interpretive Statements ATRIAL FIBRILLATION WITH RVR LEFT AXIS DEVIATION [QRS AXIS < -30] LEFT BUNDLE BRANCH BLOCK [120+ ms QRS DURATION, 80+ ms Q/S IN V1/V2, 85+ ms R IN I/aVL/V5/V6] Compared to ECG 03/22/2024 09:30:28 NO SIGNIFICANT CHANGES Electronically Signed On 03-25-2024 14:45:45 PHOTORESIST CONTACT PRINTER by To Burns M.D.
[2024-03-25 08:27] LABS: Glucose Point of Care 100 mg/dl (65-105)
[2024-03-25] MEDS: METOPROLOL TARTRATE INJ 5 MG/5 ML VIAL 2.5 MG IV PUSH (08:30)
--- NOTE | 2024-03-25 08:54 | PCPTNOTE ---
HOLD PT reevaluation this AM; pt had increased HR of 180 and rapid was being called for her by RN.
[2024-03-25 09:10] LABS: Troponin I 0.032 ng/mL (0.000-0.034)
--- NOTE | 2024-03-25 09:14 | ECG_ITS ---
Test Date: 2024-03-25 11:00:10 Measurements Intervals [place] Rate: 75 P: 0 [place]: 0 QRS: -43 QRSD: 159 T: 83 QT: 405 QTc: 453 Interpretive Statements ATRIAL FIBRILLATION LEFT AXIS DEVIATION [QRS AXIS < -30] LEFT BUNDLE BRANCH BLOCK [120+ ms QRS DURATION, 80+ ms Q/S IN V1/V2, 85+ ms R IN I/aVL/V5/V6] Compared to ECG 03/25/2024 08:29:27 RAPID VENTRICULAR RATE NO LONGER PRESENT Electronically Signed On 03-25-2024 14:51:30 THERAPEUTIC MASSAGE TECHNICIAN by To Burns M.D.
--- NOTE | 2024-03-25 09:15 | P.PNCA_ITS ---
Progress Note: A&P Assessment and Plan (1) Systolic dysfunction: Code(s): I51.9 - Heart disease, unspecified Status: Acute Assessment and Plan: Moderate with EF 35-40% and was 45%. Euvolemic on Lasix. Lexiscan myoview: Negative for ischemia. (2) Mechanical heart valve present: Code(s): Z95.2 - Presence of prosthetic heart valve Status: Acute Assessment and Plan: On Warfarin normally to keep INR 2.5-3.0 and managed by her PCP. Had anterior abdominal hematoma from Lovenox. Stopped Lovenox. Eventually needs to be transitioned back to Warfarin upon discharge. (3) Atrial fibrillation: Code(s): I48.91 - Unspecified atrial fibrillation Status: Acute Assessment and Plan: Controlled now, but rate fluctuates here up to 160's bpm which could be due to volume depletion/anemia/pain. Normally she is not very fast on low dose Metoprolol 12.5 mg daily. Normally on Warfarin as per treatment for mechanical AVR. Decrease Metoprolol 25 mg TID. Start Sotalol 80 mg BID to keep her in sinus rhythm. Check EKG post each dose x 5 doses to check QT interval. (4) Hyperlipidemia: Qualifiers: Hyperlipidemia type: mixed hyperlipidemia Qualified Code(s): E78.2 - Mixed hyperlipidemia Code(s): E78.5 - Hyperlipidemia, unspecified Status: Acute Assessment and Plan: On Simvastatin. (5) HTN (hypertension): Qualifiers: Hypertension type: primary hypertension Qualified Code(s): I10 - Essential (primary) hypertension Code(s): I10 - Essential (primary) hypertension Status: Acute Assessment and Plan: Stable. (6) LBBB (left bundle branch block): Code(s): I44.7 - Left bundle-branch block, unspecified Status: Acute (7) Elevated troponin: Code(s): R77.8 - Other specified abnormalities of plasma proteins Status: Inactive Assessment and Plan: Flat and slightly elevated at .055. Could be related to demand ischemia from intermittent rapid HR/CKD/anemia. Subjective Date/time seen: 03/25/24 09:15 Interval history: No chest pain or sob. Had rapid response due to HR 180 bpm in atrial fib. Exam Const: General: cooperative, healthy appearing and comfortable Orientation/consciousness: oriented to person, oriented to place and oriented to time Resp: Auscultation: clear to auscultation bilaterally, no crackles, no rales, no rhonchi and no wheezes Cardio: Rate: regular rate Rhythm: abnormal rhythm Heart sounds: Clicking heart sound present (S2) and no murmurs Peripheral pulses: dorsalis pedis present GI: GI Palp: No abdominal tenderness and Yes Soft to palpation Neuro: General: oriented to person, oriented to place and oriented to time Extrem: Right lower extremity: no edema Left lower extremity: no edema Objective Data Vital Signs Vital Signs: Vital Signs - 24 hr 03/24/24 12:00 03/24/24 13:00 03/24/24 13:31 Temperature Pulse Rate 88 89 96 Respiratory Rate 16 Blood Pressure Pulse Oximetry Oxygen Delivery 03/24/24 13:41 03/24/24 14:00 03/24/24 17:38 Temperature 97.8 F Pulse Rate 100 89 92 Respiratory Rate 16 16 Blood Pressure 113/54 L Pulse Oximetry 98 Oxygen Delivery 03/24/24 20:00 03/24/24 20:00 03/24/24 20:47 Temperature Pulse Rate 86 88 Respiratory Rate 18 Blood Pressure Pulse Oximetry Oxygen Delivery Room Air 03/24/24 20:53 03/24/24 20:59 03/24/24 21:07 Temperature 99.7 F H Pulse Rate 88 90 87 Respiratory Rate 18 24 H Blood Pressure 118/59 L Pulse Oximetry 96 97 Oxygen Delivery Room Air 03/25/24 00:00 03/25/24 02:10 03/25/24 02:18 Temperature Pulse Rate 87 87 88 Respiratory Rate 18 18 Blood Pressure Pulse Oximetry Oxygen Delivery 03/25/24 04:00 03/25/24 05:56 03/25/24 07:37 Temperature 98.8 F Pulse Rate 116 H 60 Respiratory Rate 20 Blood Pressure 114/55 L Pulse Oximetry 90 92 Oxygen Delivery Room Air 03/25/24 07:37 03/25/24 07:47 03/25/24 08:02 Temperature Pulse Rate 119 H 118 H 118 H Respiratory Rate 18 20 Blood Pressure Pulse Oximetry Oxygen Delivery 03/25/24 08:30 03/25/24 09:13 Temperature Pulse Rate 164 H 88 Respiratory Rate 20 Blood Pressure 112/64 Pulse Oximetry 95 Oxygen Delivery Intake/Output Intake/Output: Intake & Output 01/14/03/23/24 03/24/24 03/25/24 23:59 23:59 23:59 23:59 Intake Total 440 1060 830 350 Output Total 350 400 300 300 Balance 90 660 530 50 Meds/Results Medications: Active Medications Generic Name Dose Route Start Last Admin Trade Name Freq PRN Reason Stop Dose Admin Acetaminophen 1,000 mg 03/10/24 10:04 03/22/24 12:56 Acetaminophen 500 Mg Tablet PO 1,000 mg Q6H PRN Administration Mild Pain (1-3) or Fever Hydrocodone Bitart/Acetaminophen 1 tab 03/08/24 17:21 03/25/24 06:42 Hydrocodone/Acetaminophen (*Crx) 5-325 Mg Tablet PO 1 tab Q6H PRN Administration Pain Rated 4-6 Acetylcysteine 200 mg 03/22/24 20:00 03/25/24 07:36 Acetylcysteine 20% Inhal Soln 800 Mg/4 Ml Vial INHALATION 200 mg Q12HRT IAN Administration Alprazolam 0.25 mg 03/08/24 17:21 03/20/24 21:42 Alprazolam (*Crx) 0.25 Mg Tablet PO 0.25 mg HS PRN Administration Anxiety Benzocaine 1 lozenge 03/10/24 18:17 03/16/24 08:17 Benzocaine/Menthol (*Bkc) 18 Ea Lozenge PO 1 lozenge PRN PRN Administration Sore Throat Cyanocobalamin 1,000 mcg 03/09/24 09:00 03/25/24 08:00 Cyanocobalamin 1,000 Mcg Tablet PO 1,000 mcg DAILY IAN Administration Cyclobenzaprine HCl 5 mg 03/19/24 14:03 03/20/24 15:42 Cyclobenzaprine Hcl 5 Mg Tablet PO 5 mg Q8H PRN Administration Muscle Spasm Diclofenac Sodium 1 applic 03/10/24 10:04 03/22/24 09:14 Diclofenac Sodium 1% 100 Gm Gel (*Bkc) TOPICAL 1 applic QID PRN Administration joint pain Diclofenac Sodium 1 applic 03/19/24 17:00 03/25/24 08:04 Diclofenac Sodium 1% 100 Gm Gel (*Bkc) TOPICAL 1 applic QID IAN Administration Furosemide 20 mg 03/16/24 09:00 03/25/24 08:03 Furosemide 20 Mg Tablet PO 20 mg DAILY IAN Administration Gabapentin 300 mg 12/31/24 21:00 03/25/24 08:02 Gabapentin 300 Mg Capsule PO 300 mg Q12HR IAN Administration Guaifenesin 1,200 mg 03/13/24 12:50 03/25/24 08:02 Guaifenesin 12 Hr 600 Mg Tabcr PO 1,200 mg Q12HR IAN Administration Guaifenesin/Dextromethorphan 10 ml 03/11/24 23:14 03/14/24 07:53 Guaifenesin/Dextromethorphan 10 Ml Udc PO 10 ml Q4H PRN Administration Cough Hydromorphone HCl 0.2 mg 03/21/24 11:31 03/21/24 11:54 Hydromorphone Hcl Inj (*Crx) 1 Mg/Ml Syr IV PUSH 0.2 mg Q6H PRN Administration Pain Rated 7-10 Levalbuterol HCl 1.25 mg 03/22/24 14:00 03/25/24 07:36 Levalbuterol Neb 1.25 Mg/3 Ml INHALATION 1.25 mg Q6HRT IAN Administration Melatonin 5 mg 03/15/24 21:00 03/24/24 20:59 Melatonin 5 Mg Tablet PO 5 mg HS IAN Administration Methimazole 5 mg 03/09/24 09:00 03/25/24 08:02 Methimazole 5 Mg Tab PO 5 mg DAILY IAN Administration Metoprolol Tartrate 50 mg 03/21/24 09:00 03/25/24 08:02 Metoprolol Tartrate 50 Mg Tab PO 50 mg TID IAN Administration Cinacalcet 15 Mg 0 each 03/10/24 09:00 03/25/24 08:01 Tablet PO 04/09/24 08:59 1 each DAILY IAN Administration Pantoprazole Sodium 40 mg 03/09/24 09:00 03/25/24 08:02 Pantoprazole 40 Mg Tablet PO 40 mg QAM IAN Administration Polyethylene Glycol 17 gm 03/22/24 09:00 03/25/24 08:03 Polyethylene Glycol 3350 17 Gm Powd.Pack PO 17 gm QAM IAN Administration Potassium Chloride 10 meq 03/08/24 21:00 03/24/24 20:59 Potassium Chloride 10 Meq Er Tablet PO 10 meq HS IAN Administration Simvastatin 10 mg 03/08/24 21:00 03/24/24 20:59 Simvastatin 10 Mg Tablet PO 10 mg HS IAN Administration Sotalol HCl 80 mg 03/25/24 09:15 Sotalol Hcl 80 Mg Tablet PO Q12HR [facility] Venlafaxine HCl 150 mg 03/09/24 09:00 03/25/24 08:02 Venlafaxine Hcl Xr 75 Mg Cap.Er.24h PO 150 mg DAILY IAN Administration Vitamin D 1,000 units 03/09/24 09:00 03/25/24 08:02 Cholecalciferol 1,000 Units Tablet PO 1,000 units DAILY IAN Administration Warfarin Sodium 9 mg 03/11/24 17:00 03/13/24 17:40 Warfarin (*Pbkc) 3 Mg Tablet PO 9 mg DAILY@1700 [facility] Administration Warfarin Sodium 6 mg 03/22/24 17:00 03/22/24 17:59 Warfarin (*Pbkc) 3 Mg Tablet PO 6 mg DAILY@1700 [facility] Administration Radiology Results: ITS Impressions Chest X-Ray 03/20/24 06:33 IMPRESSION: No acute cardiopulmonary process or significant change since 03/18/2024 Chest/Abdomen/Pelvis CT 03/21/24 12:36 IMPRESSION: CHEST: 1. No acute cardiopulmonary pathology. 2. Compression fracture of T6. MRI evaluation advised. ABDOMEN/PELVIS: 1. Hematoma in the left anterior abdominal wall. 2. Constipation. Lexiscan Stress Test 03/22/24 12:28 IMPRESSION: 1. No definite ischemia or infarct. 2. Normal left ventricular ejection fraction measuring 56%. Lumbar Spine X-Ray 03/23/24 13:40 IMPRESSION: 1. Mild lumbar spondylosis. 2. Lumbar dextroscoliosis. Cervical Spine CT 03/24/24 15:01 IMPRESSION: 1. Moderate cervical spondylosis, stable from 11/13/2020. 2. Cervicothoracic levoscoliosis. Labs Labs: Laboratory Results - last 24 hr 03/25/24 03/25/24 03/25/24 06:01 08:23 08:28 WBC 9.5 RBC 2.69 L Hgb 8.6 L Hct 27.6 L MCV 102.6 H MCH 32.0 MCHC 31.2 L RDW 13.7 Plt Count 307 MPV 12.5 H PT 27.5 H INR 2.5 Sodium 131 L Potassium 4.2 Chloride 98 Carbon Dioxide 29 Anion Gap 4 BUN 18 H Creatinine 0.96 Estim Creat Clear Calc 44 Estimated GFR 56 L Glucose 76 POC Capillary Glucose 100 Calcium 9.6 Total Bilirubin 0.8 AST 76 H ALT 49 H Alkaline Phosphatase 89 Troponin I 0.032 Total Protein 7.0 Albumin 3.1 L
--- NOTE | 2024-03-25 09:33 | PCOTNOTE ---
Pt is due for an OT re-evaluation however pt had a rapid called this am due to HR going up to 180 when attempting to move. RN asking to hold therapy for now. Will continue to follow for re-evaluation.
[2024-03-25] MEDS: SOTALOL HCL 80 MG TABLET PO ×2 (10:35→20:52)
--- NOTE | 2024-03-25 12:09 | ECG_ITS ---
Test Date: 2024-03-25 12:53:53 Measurements Intervals [place] Rate: 78 P: 0 CO: 0 QRS: -22 QRSD: 158 T: 85 QT: 422 QTc: 483 Interpretive Statements ATRIAL FIBRILLATION LEFT BUNDLE BRANCH BLOCK [120+ ms QRS DURATION, 80+ ms Q/S IN V1/V2, 85+ ms R IN I/aVL/V5/V6] Compared to ECG 03/25/2024 11:00:10 NO SIGNIFICANT CHANGES Electronically Signed On 03-25-2024 14:52:15 MACHINE OPERATOR PICKER by To Burns M.D.
--- NOTE | 2024-03-25 13:14 | PC.NURSE ---
pt transferred to room 206 via bed, placed on telemetry monitoring for IMU, reviewed plan of care with RN
--- NOTE | 2024-03-25 16:39 | PCRCNOTE ---
Window of time for administration has passed. See next scheduled administration.
--- NOTE | 2024-03-25 16:42 | PCRCNOTE ---
Window of time for administration has passed. See next scheduled administration.
[2024-03-25] MEDS: ACETAMINOPHEN 500 MG TABLET 1000 MG PO (16:55)
[2024-03-25] MEDS: WARFARIN (*PBKC) 3 MG TABLET 6 MG PO (16:56)
[2024-03-25 17:30] LABS: Glucose Point of Care 96 mg/dl (65-105)
[2024-03-25] MEDS: CYCLOBENZAPRINE HCL 5 MG TABLET PO (18:53)
[2024-03-25] MEDS: MELATONIN 5 MG TABLET PO (20:52)
[2024-03-25] MEDS: POTASSIUM CHLORIDE 10 MEQ ER TABLET PO (20:52)
[2024-03-25] MEDS: SIMVASTATIN 10 MG TABLET PO (20:52)
--- NOTE | 2024-03-25 22:02 | ECG_ITS ---
Test Date: 2024-03-25 22:10:57 Measurements Intervals [place] Rate: 63 P: 0 [place]: 0 QRS: -26 QRSD: 158 T: 91 QT: 460 QTc: 472 Interpretive Statements ATRIAL FIBRILLATION LEFT BUNDLE BRANCH BLOCK [120+ ms QRS DURATION, 80+ ms Q/S IN V1/V2, 85+ ms R IN I/aVL/V5/V6] Compared to ECG 03/25/2024 12:53:53 No significant changes Electronically Signed On 03-26-2024 10:37:25 BICYCLE MECHANIC by Diogenes Laguna M.D.
[2024-03-26] VITALS (27 sets, daily range): BP systolic 108–133; BP diastolic 44–70; PULSE 55–80; RESP 16–22; TEMP 36.7–37.2; O2SAT 94–98
[2024-03-26] MEDS: LEVALBUTEROL NEB 1.25 MG/3 ML INHALATION ×4 (01:25→19:44)
[2024-03-26 05:26] LABS: Hematocrit 26.1 % (37.0-47.0); Hemoglobin 8.1 g/dL (12.0-15.0); Mean Corpuscular Hemoglobin 32.5 pg (26-34); Mean Corpuscular Volume 104.8 fl (80-100); Mean Platelet Volume 12.3 fl (7.4-10.4); Platelet Count Result 367 k/mm3 (150-375); Red Blood Count 2.49 M/mm3 (4.2-5.4); Red Cell Distribution Width 13.9 % (11.5-14.5); White Blood Count 10.7 K/mm3 (4.5-10.0)
[2024-03-26 05:38] LABS: INR 2.6; Prothrombin Time 28.5 Seconds (11.1-14.7)
[2024-03-26 05:42] LABS: Alanine Aminotransferase 43 U/L (6-35); Albumin Level 2.9 g/dL (3.5-5.1); Alkaline Phosphatase 78 U/L (38-126); Anion Gap 3 mmol/L (4-12); Aspartate Amino Transferase 64 U/L (14-36); Bilirubin,Total 0.8 mg/dL (0.2-1.3); Blood Urea Nitrogen 19 mg/dL (7-17); Calcium 9.3 mg/dL (8.4-10.2); Carbon Dioxide 31 mmol/L (22-30); Chloride 99 mmol/L (98-107); Estimated CRCL calculation 40 ml/min; Estimated Glomerular Filt Rate 49; Glucose 66 mg/dL (65-110); Potassium 4.2 mmol/L (3.4-5.0); Sodium 133 mmol/L (137-145)
[2024-03-26 06:18] LABS: Glucose Point of Care 65 mg/dl (65-105)
[2024-03-26 07:26] LABS: Glucose Point of Care 120 mg/dl (65-105)
--- NOTE | 2024-03-26 08:02 | PM.PNCARD ---
Progress Note: A&P Assessment and Plan (1) Systolic dysfunction: Code(s): I51.9 - Heart disease, unspecified Status: Acute Assessment and Plan: 03/11/24 Moderate with EF 35-40% and was 45%, mild RVE, mechanical AV, mild AI, mod MR/TR. Euvolemic on Lasix. 03/22/24 Lexiscan myoview: Negative for ischemia. (2) Mechanical heart valve present: Code(s): Z95.2 - Presence of prosthetic heart valve Status: Acute Assessment and Plan: On Warfarin normally to keep INR 2.5-3.0 and managed by her PCP. Had anterior abdominal hematoma from Lovenox. Stopped Lovenox. (3) Atrial fibrillation: Code(s): I48.91 - Unspecified atrial fibrillation Status: Acute Assessment and Plan: Controlled now, but rate fluctuates here up to 160's bpm which could be due to volume depletion/anemia/pain. Normally she is not very fast on low dose Metoprolol 12.5 mg daily. Normally on Warfarin as per treatment for mechanical AVR. Decrease Metoprolol 25 mg TID. Started 03/25/24 Sotalol 80 mg BID to keep her in sinus rhythm. Check EKG post each dose x 5 doses to check QT interval. Stop Metoprolol. (4) Hyperlipidemia: Qualifiers: Hyperlipidemia type: mixed hyperlipidemia Qualified Code(s): E78.2 - Mixed hyperlipidemia Code(s): E78.5 - Hyperlipidemia, unspecified Status: Acute Assessment and Plan: On Simvastatin. (5) HTN (hypertension): Qualifiers: Hypertension type: primary hypertension Qualified Code(s): I10 - Essential (primary) hypertension Code(s): I10 - Essential (primary) hypertension Status: Acute Assessment and Plan: Stable. (6) LBBB (left bundle branch block): Code(s): I44.7 - Left bundle-branch block, unspecified Status: Acute (7) Elevated troponin: Code(s): R77.8 - Other specified abnormalities of plasma proteins Status: Inactive Assessment and Plan: Flat and slightly elevated at .055. Could be related to demand ischemia from intermittent rapid HR/CKD/anemia. Subjective Date/time seen: 03/26/24 08:02 Interval history: No chest pain or sob. Exam Const: General: cooperative, healthy appearing and comfortable Orientation/consciousness: oriented to person, oriented to place and oriented to time Resp: Auscultation: clear to auscultation bilaterally, no crackles, no rales, no rhonchi and no wheezes Cardio: Rate: regular rate Rhythm: abnormal rhythm Heart sounds: Clicking heart sound present (S2) and no murmurs Peripheral pulses: dorsalis pedis present Neuro: General: oriented to person, oriented to place and oriented to time Extrem: Right lower extremity: no edema Left lower extremity: no edema Objective Data Vital Signs Vital Signs: Vital Signs - 24 hr 03/25/24 08:12 03/25/24 08:30 03/25/24 08:58 Temperature Pulse Rate 169 H 164 H 90 Respiratory Rate 24 H Blood Pressure 102/72 Pulse Oximetry Oxygen Delivery Fraction of Inspired Oxygen 03/25/24 09:13 03/25/24 10:35 03/25/24 12:00 Temperature Pulse Rate 88 84 62 Respiratory Rate 20 Blood Pressure 112/64 Pulse Oximetry 95 Oxygen Delivery Fraction of Inspired Oxygen 03/25/24 13:30 03/25/24 14:00 03/25/24 16:00 Temperature 98.6 F Pulse Rate 86 86 Respiratory Rate 22 H Blood Pressure 119/63 Pulse Oximetry 100 Oxygen Delivery Room Air Fraction of Inspired Oxygen 03/25/24 16:00 03/25/24 16:00 03/25/24 18:00 Temperature Pulse Rate 78 61 Respiratory Rate Blood Pressure Pulse Oximetry Oxygen Delivery Room Air Fraction of Inspired Oxygen 03/25/24 20:00 03/25/24 20:00 03/25/24 20:00 Temperature 97.9 F Pulse Rate 70 70 Respiratory Rate 19 Blood Pressure 108/51 L Pulse Oximetry 98 Oxygen Delivery Room Air Fraction of Inspired Oxygen 03/25/24 20:35 03/25/24 20:35 03/25/24 20:49 Temperature Pulse Rate 68 66 Respiratory Rate 20 20 Blood Pressure Pulse Oximetry 96 Oxygen Delivery Room Air Fraction of Inspired Oxygen 21 03/25/24 20:52 03/25/24 22:00 03/25/24 23:55 Temperature 97.9 F Pulse Rate 62 58 L 58 L Respiratory Rate 18 Blood Pressure 108/55 L Pulse Oximetry 100 Oxygen Delivery Fraction of Inspired Oxygen 03/26/24 00:00 03/26/24 00:00 03/26/24 01:25 Temperature Pulse Rate 61 62 Respiratory Rate 16 Blood Pressure Pulse Oximetry Oxygen Delivery Room Air Fraction of Inspired Oxygen 03/26/24 01:36 03/26/24 02:00 03/26/24 04:00 Temperature Pulse Rate 55 L 57 L Respiratory Rate 16 Blood Pressure Pulse Oximetry Oxygen Delivery Room Air Fraction of Inspired Oxygen 03/26/24 04:00 03/26/24 04:00 03/26/24 06:00 Temperature 98.0 F Pulse Rate 62 61 66 Respiratory Rate 19 Blood Pressure 118/60 Pulse Oximetry 98 Oxygen Delivery Fraction of Inspired Oxygen Intake/Output Intake/Output: Intake & Output 03/23/24 03/24/24 03/25/24 03/26/24 23:59 23:59 23:59 23:59 Intake Total 1060 830 970 250 Output Total 400 300 300 Balance 660 530 670 250 Meds/Results Medications: Active Medications Generic Name Dose Route Start Last Admin Trade Name Freq PRN Reason Stop Dose Admin Acetaminophen 1,000 mg 03/10/24 10:04 03/25/24 16:55 Acetaminophen 500 Mg Tablet PO 1,000 mg Q6H PRN Administration Mild Pain (1-3) or Fever Hydrocodone Bitart/Acetaminophen 1 tab 03/08/24 17:21 03/25/24 06:42 Hydrocodone/Acetaminophen (*Crx) 5-325 Mg Tablet PO 1 tab Q6H PRN Administration Pain Rated 4-6 Acetylcysteine 200 mg 03/22/24 20:00 03/25/24 20:35 Acetylcysteine 20% Inhal Soln 800 Mg/4 Ml Vial INHALATION 200 mg Q12HRT IAN Administration Alprazolam 0.25 mg 03/08/24 17:21 03/20/24 21:42 Alprazolam (*Crx) 0.25 Mg Tablet PO 0.25 mg HS PRN Administration Anxiety Benzocaine 1 lozenge 03/10/24 18:17 03/16/24 08:17 Benzocaine/Menthol (*Bkc) 18 Ea Lozenge PO 1 lozenge PRN PRN Administration Sore Throat Cyanocobalamin 1,000 mcg 03/09/24 09:00 03/25/24 08:00 Cyanocobalamin 1,000 Mcg Tablet PO 1,000 mcg DAILY IAN Administration Cyclobenzaprine HCl 5 mg 03/19/24 14:03 03/25/24 18:53 Cyclobenzaprine Hcl 5 Mg Tablet PO 5 mg Q8H PRN Administration Muscle Spasm Diclofenac Sodium 1 applic 03/10/24 10:04 03/22/24 09:14 Diclofenac Sodium 1% 100 Gm Gel (*Bkc) TOPICAL 1 applic QID PRN Administration joint pain Diclofenac Sodium 1 applic 03/19/24 17:00 03/25/24 20:53 Diclofenac Sodium 1% 100 Gm Gel (*Bkc) TOPICAL 1 applic QID IAN Administration Furosemide 20 mg 03/16/24 09:00 03/25/24 08:03 Furosemide 20 Mg Tablet PO 20 mg DAILY IAN Administration Gabapentin 300 mg 03/08/24 21:00 03/25/24 20:52 Gabapentin 300 Mg Capsule PO 300 mg Q12HR IAN Administration Guaifenesin 1,200 mg 03/13/24 12:50 03/25/24 20:52 Guaifenesin 12 Hr 600 Mg Tabcr PO 1,200 mg Q12HR IAN Administration Guaifenesin/Dextromethorphan 10 ml 03/11/24 23:14 03/14/24 07:53 Guaifenesin/Dextromethorphan 10 Ml Udc PO 10 ml Q4H PRN Administration Cough Hydromorphone HCl 0.2 mg 03/21/24 11:31 03/21/24 11:54 Hydromorphone Hcl Inj (*Crx) 1 Mg/Ml Syr IV PUSH 0.2 mg Q6H PRN Administration Pain Rated 7-10 Levalbuterol HCl 1.25 mg 03/22/24 14:00 03/26/24 01:25 Levalbuterol Neb 1.25 Mg/3 Ml INHALATION 1.25 mg Q6HRT IAN Administration Melatonin 5 mg 03/15/24 21:00 03/25/24 20:52 Melatonin 5 Mg Tablet PO 5 mg HS IAN Administration Methimazole 5 mg 03/09/24 09:00 03/25/24 08:02 Methimazole 5 Mg Tab PO 5 mg DAILY IAN Administration Metoprolol Tartrate 25 mg 03/25/24 13:00 03/25/24 14:12 Metoprolol Tartrate 25 Mg Tablet PO Not Given TID IAN Cinacalcet 15 Mg 0 each 03/10/24 09:00 03/25/24 08:01 Tablet PO 04/09/24 08:59 1 each DAILY IAN Administration Pantoprazole Sodium 40 mg 03/09/24 09:00 03/25/24 08:02 Pantoprazole 40 Mg Tablet PO 40 mg QAM IAN Administration Polyethylene Glycol 17 gm 03/22/24 09:00 03/25/24 08:03 Polyethylene Glycol 3350 17 Gm Powd.Pack PO 17 gm QAM IAN Administration Potassium Chloride 10 meq 03/08/24 21:00 03/25/24 20:52 Potassium Chloride 10 Meq Er Tablet PO 10 meq HS IAN Administration Simvastatin 10 mg 03/08/24 21:00 03/25/24 20:52 Simvastatin 10 Mg Tablet PO 10 mg HS IAN Administration Sotalol HCl 80 mg 03/25/24 09:15 03/25/24 20:52 Sotalol Hcl 80 Mg Tablet PO 80 mg Q12HR IAN Administration Venlafaxine HCl 150 mg 03/09/24 09:00 03/25/24 08:02 Venlafaxine Hcl Xr 75 Mg Cap.Er.24h PO 150 mg DAILY IAN Administration Vitamin D 1,000 units 03/09/24 09:00 03/25/24 08:02 Cholecalciferol 1,000 Units Tablet PO 1,000 units DAILY IAN Administration Warfarin Sodium 9 mg 03/11/24 17:00 03/13/24 17:40 Warfarin (*Pbkc) 3 Mg Tablet PO 9 mg DAILY@1700 IAN Administration Warfarin Sodium 6 mg 03/22/24 17:00 03/25/24 16:56 Warfarin (*Pbkc) 3 Mg Tablet PO 6 mg DAILY@1700 IAN Administration Radiology Results: ITS Impressions Chest/Abdomen/Pelvis CT 03/21/24 12:36 IMPRESSION: CHEST: 1. No acute cardiopulmonary pathology. 2. Compression fracture of T6. MRI evaluation advised. ABDOMEN/PELVIS: 1. Hematoma in the left anterior abdominal wall. 2. Constipation. Lexiscan Stress Test 03/22/24 12:28 IMPRESSION: 1. No definite ischemia or infarct. 2. Normal left ventricular ejection fraction measuring 56%. Lumbar Spine X-Ray 03/23/24 13:40 IMPRESSION: 1. Mild lumbar spondylosis. 2. Lumbar dextroscoliosis. Cervical Spine CT 03/24/24 15:01 IMPRESSION: 1. Moderate cervical spondylosis, stable from 11/13/2020. 2. Cervicothoracic levoscoliosis. Chest X-Ray 03/26/24 06:15 IMPRESSION: 1. Cardiomegaly. Labs Labs: Laboratory Results - last 24 hr 03/25/24 03/25/24 03/25/24 08:23 08:28 15:59 WBC RBC Hgb Hct MCV MCH MCHC RDW Plt Count MPV PT INR Sodium Potassium Chloride Carbon Dioxide Anion Gap BUN Creatinine Estim Creat Clear Calc Estimated GFR Glucose POC Capillary Glucose 100 96 Calcium Total Bilirubin AST ALT Alkaline Phosphatase Troponin I 0.032 Total Protein Albumin 03/26/24 03/26/24 03/26/24 05:02 06:14 07:23 WBC 10.7 H RBC 2.49 L Hgb 8.1 L Hct 26.1 L MCV 104.8 H MCH 32.5 MCHC 31.0 L RDW 13.9 Plt Count 367 MPV 12.3 H PT 28.5 H INR 2.6 Sodium 133 L Potassium 4.2 Chloride 99 Carbon Dioxide 31 H Anion Gap 3 L BUN 19 H Creatinine 1.07 H Estim Creat Clear Calc 40 Estimated GFR 49 L Glucose 66 POC Capillary Glucose 65 120 H Calcium 9.3 Total Bilirubin 0.8 AST 64 H ALT 43 H Alkaline Phosphatase 78 Troponin I Total Protein 6.0 L Albumin 2.9 L
[2024-03-26] MEDS: ACETYLCYSTEINE 20% INHAL SOLN 800 MG/4 ML VIAL 200 MG INHALATION ×2 (08:30→19:44)
[2024-03-26] MEDS: FUROSEMIDE INJ 40 MG/4 ML VIAL IV PUSH (09:23)
[2024-03-26] MEDS: VENLAFAXINE HCL XR 75 MG CAP.ER.24H 150 MG PO (09:24)
[2024-03-26] MEDS: SOTALOL HCL 80 MG TABLET PO (09:24)
[2024-03-26] MEDS: PANTOPRAZOLE 40 MG TABLET PO (09:26)
[2024-03-26] MEDS: CINACALCET PO (09:27)
[2024-03-26] MEDS: methiMAzole 5 MG TAB PO (09:27)
[2024-03-26] MEDS: guaiFENesin 12 HR 600 MG TABCR 1200 MG PO ×2 (09:27→22:14)
[2024-03-26] MEDS: GABAPENTIN 300 MG CAPSULE PO ×2 (09:27→22:16)
[2024-03-26] MEDS: FUROSEMIDE 20 MG TABLET PO (09:27)
[2024-03-26] MEDS: HYDROcodone/acetaminophen (*CRX) 5-325 MG TABLET 1 TAB PO (09:28)
[2024-03-26] MEDS: DICLOFENAC SODIUM 1% 100 GM GEL (*BKC) 1 APPLIC TOPICAL ×3 (09:28→22:17)
[2024-03-26] MEDS: CHOLECALCIFEROL 1,000 UNITS TABLET 1000 UNITS PO (09:28)
[2024-03-26] MEDS: CYANOCOBALAMIN 1,000 MCG TABLET 1000 MCG PO (09:28)
--- NOTE | 2024-03-26 11:30 | ECG_ITS ---
Test Date: 2024-03-26 11:37:42 Measurements Intervals [place] Rate: 56 P: -31 [place]: 178 QRS: -32 QRSD: 158 T: 92 QT: 509 QTc: 494 Interpretive Statements ATRIAL FIBRILLATION LEFT AXIS DEVIATION [QRS AXIS < -30] LEFT BUNDLE BRANCH BLOCK [120+ ms QRS DURATION, 80+ ms Q/S IN V1/V2, 85+ ms R IN I/aVL/V5/V6] Compared to ECG 03/25/2024 22:10:57 no change compared to prior EKG Electronically Signed On 03-27-2024 09:56:27 AIRCRAFT MAINTENANCE INSTRUCTOR by Diogenes Laguna M.D.
--- NOTE | 2024-03-26 11:59 | P.PNIM_ITS ---
Progress Note: A&P Assessment and Plan (1) Mechanical heart valve present: Code(s): Z95.2 - Presence of prosthetic heart valve Status: Acute Assessment and Plan: 03/21 : I assumed care today. Patient INR is 3.1. Patient target INR is 2.5-3. Currently warfarin is on hold. Patient is also on Lovenox 80 mg b.i.d.. Since patient is already over therapeutic INR and in spite of receiving Lovenox makes her over anticoagulated. So today discontinued Lovenox. Given her warfarin 5 mg x 1 and possibly restart her home warfarin dosage 9mg from tomorrow. I performed CT chest/abdomen/pelvis which shows hematoma in the left anterior abdominal wall 3 x 2.5 cm. Discussed the goal of care with the nursing team. Patient wants some time to decide on her code status. 03/22: Surgery evaluated the patient under report overlying skin appears intact and there is no signs of infection. No indication for surgical intervention at this time. Patient has some cough and congestion. Patient is already on Mucinex, cornet. Ordered Xopenex around the clock for 2 days and Mucomyst b.i.d.. Discussed with the pharmacist and resume her home dose 6 mg not the 9 mg from today. Patient underwent a Lexiscan today 03/23: INR 3.3. Holding warfarin home dose is 6 mg. Hematoma of the abdominal wall has been evaluated by the surgery and currently does not need surgical intervention. Patient underwent Lexiscan yesterday which shows: 1. No definite ischemia or infarct. 2. Normal left ventricular ejection fraction measuring 56%. 03/24: Today patient is complaining about neck pain. Ordered Cervical CT. INR is 3.1, holding warfarin. Lexiscan is negative.In regards to hematoma no indication for surgical intervention at this time. 03/25: Today morning rapid response was called due to increased heart rate in 170s/180s. During my evaluation patient heart rate was already down to 110s/120s. Patient was evaluated by the Cardiology at the time who who started her on sotalol 80 mg p.o. b.i.d.. Patient is already on metoprolol 25 mg p.o. t.i.d.. Patient INR is 2.5 and restarted her home warfarin does 6 mg. Possible discharge to SNF after stabilizing her heart rate. 03/26: Patient pain is improving. Chest is congested but no evidence of PNA. Ordered extra dose of Lasix 40 mg IV x 1. Patient started on Sotalol 80mg PO BID.INR 2.6, continue her home dose 6mg Warfarin. Audible mechanical heart valve. INR subtherapeutic for several days, 1.5, 1.4, 1 today. Next of Kin, PCP manages INR and warfarin doses for her. Next of Kin, Anshul coordinates with the office. The last 2 weeks before admission she was taking 6 mg thursday-, 5mg thursday, sat, sun. Generally has INR checks ever 2 weeks Goal INR 2.5-3.5 with her mechanical valve. Izzy reports 9mg daily is a higher dose than she has needed previously --Started a heparin drip with a bolus for subtherapeutic INR --Follow CBC since trending down but may be dilutional. Stable overnight --Warfarin 8mg<9mg daily --Daily INR, closer to goal --Coordinate INR checks & follow up plan with PCP's office, Dr. Sanjeev Rosenberg 03/07 1.5 03/08 Warfarin 6mg 03/09 1.4 Warfarin 6mg 03/10 1 Warfarin 8mg 03/11 1.7 Warfarin 9mg 03/12 2.1 & 2.2 Warfarin 9mg (lab said it was likely run twice for a precision check) 03/14: * 3.9 - Will hold tonight's dose. * Continue to trend daily INR's * Therapeutically dosed Lovenox is discontinued at this time as pt has been receiving it as a bridge. 03/15 * INR 4.1 * Continue to hold Warfarin * Continue to trend daily INR * Reports passing a small amount of bright red blood today after bowel movement * Continue to monitor. * Patient on Augmentin which can make therapeutic trend challenging 03/16 * INR 3.9 * Continue to hold Warfarin 03/17 * INR 3.3 * Continue to hold Warfarin 03/18 * INR 3.4 * Continue to hold Warfarin for now 03/19 * INR 3.5 * Continue to hold warfarin 03/20 * INR 3.2 today * Continue to hold Warfarin 03/21 INR 3.1 Discontinue Lovenox due to over anticoagulation Supratherapeutic INR 3.1 Hold warfarin Evidence of hematoma in the left anterior abdominal wall 3 x 2.5 cm (2) Palpitations: Code(s): R00.2 - Palpitations Status: Acute Assessment and Plan: - Likely due to PAF with RVR. - Better after hydration and resuming home meds. (3) Acute kidney injury: Code(s): N17.9 - Acute kidney failure, unspecified Status: Acute Assessment and Plan: Ddx pre-renal vs poor PO intake vs meds vs other. s/p 500 bolus with tachycardia --Resumed lasix --Creatinine stable (4) HTN (hypertension): Qualifiers: Hypertension type: primary hypertension Qualified Code(s): I10 - Essential (primary) hypertension Code(s): I10 - Essential (primary) hypertension Status: Acute Assessment and Plan: - Appears well controlled. - Continue metoprolol, changed from XL to IR for titration - Follow VS (5) Hyperlipidemia: Qualifiers: Hyperlipidemia type: mixed hyperlipidemia Qualified Code(s): E78.2 - Mixed hyperlipidemia Code(s): E78.5 - Hyperlipidemia, unspecified Status: Acute Assessment and Plan: * continue simvastatin (6) Shortness of breath: Code(s): R06.02 - Shortness of breath Status: Acute Assessment and Plan: Mildly tachypneic. Not obviously overloaded on exam, likely 2/2 pneumonia --Started heparin drip, if not resolved consider a CT r/o PE, but is on warfarin chronically for mechanical heart valve --Treatment of pneumonia and heart failure, rate control afib --PEP therapy for airway clearance (7) Anemia: Code(s): D64.9 - Anemia, unspecified Status: Acute Assessment and Plan: Blood count trending down since admission but may be dilutional 14.2>11.1 Iron panel showing iron deficiency anemia, Total Iron and Tsat low. B12 636. LDH 245 --iron sucrose 300mg x3 doses --Follow CBC --If downtrending would need GI consult on chronic anticoagulation (8) Heart failure, diastolic, acute on chronic: Code(s): I50.33 - Acute on chronic diastolic (congestive) heart failure Status: Acute Assessment and Plan: 08/24/23 Echo: TDS. EF 45%, biatrial enlargement, suspect (YADIRA 1.4 cm2), mod MR, mild-mod TR. s/p 500ml fluid bolus, now back on IV lasix NT-proBNP 10,000 Resume lasix, 20mg IV daily & increase as able TTE 03/14/24: * Chronic in nature. * Appears euvolemic. * Continue Lasix 03/15/23: * Will increase to 40 mg IVP lasix today * Course bilaterally with peripheral swelling 03/16 * continue Lasix 03/17 * Transition to oral Lasix * Appears euvolemic 03/18 * Flipped into A fib with RVR today * Lungs sounding course * Will repeat CXR now * Last Echo on 03/11/24 shown LVEF of 3-40% 03/19 * Back in NSR * Continue telemetry monitoring * CXR was negative * proBNP elevated, however lung sounds are clear 03/20 * Flipped back into A fib RVR overnight * Repeat EKG showing new LBBB--Cardiology was notified. * Mild troponin bump--likely demand ischemia * Plan for Lexiscan stress test tomorrow to further evaluate 03/22: No significant finding in Lexiscan (9) Pneumonia: Code(s): J18.9 - Pneumonia, unspecified organism Status: Acute Assessment and Plan: Resolved. Hospital associated pneumonia. Chest x-ray showed possible RLL pneumonia. Has crackles on exam. Intermittent fevers. Resolved today after starting unasyn. On room air --Started Unasyn, change to augmentin if improving --If new oxygen requirements, broaden to Cefepime/Vanc/Flagyl --Also has a sore throat, checking strep culture. Chlorseptic drops & tylenol prn --Urine for strep pneumo --Follow up chest x-ray if new oxygen requirement or not resolving --Staph screen. Can broaden to Cefepime/Vanc if worsening --Sputum culture if able to collect. Would only use to guide treatment if not improving with current antibiotics 03/14/24: * Continue Unasyn. Could likely switch to oral Augmentin tomorrow. 03/15/24: * Unasyn changed to Augmentin 03/18/24 * Augmentin finished today (10) Atrial fibrillation with RVR: Code(s): I48.91 - Unspecified atrial fibrillation Status: Acute Assessment and Plan: Home metoprolol ER 25mg daily Resting HR 70s-90s, 100-130's with activity on 03/10. Rate controlled with increased dose of metoprolol and a 500ml fluid bolus - Change Metoprolol ER 25mg daily to metoprolol tartrate 12.5mg q6 and titrate. 5mg IV metoprolol --INR goal as noted for mechanical heart valve. INR can be affected by antibiotics --Cardiology consulted, appreciate recommendations 03/15/24: * Rate controlled in the 90's * Continue Metoprolol * D/C continuous tele * Hold Warfarin due to supratherapeutic INR 03/17 * Continue to hold Warfarin 03/18 * Went back into Afib RVR today * Continue to hold Warfarin due to supratherapeutic INR * Will increase Metoprolol to 25 mg q6h for better rate control * Continue tele * Cardiology reconsulted * repeating CXR 03/19 * In NSR now, continue Metoprolol 25 mg q6h * Continue tele for now * Cardiology following * CXR negative 03/20 * Flipped back into A fib RVR overnight * Repeat EKG showing new LBBB--Cardiology was notified. * Mild troponin bump--likely demand ischemia * Plan for Lexiscan stress test tomorrow to further evaluate 03/21 Metoprolol tartrate 50 mg p.o. t.i.d. Warfarin 5 mg p.o. q.d. 03/25: Today morning rapid response was called due to increased heart rate in 170s/180s. During my evaluation patient heart rate was already down to 110s/120s. Patient was evaluated by the Cardiology at the time who who started her on sotalol 80 mg p.o. b.i.d.. Patient is already on metoprolol 25 mg p.o. t.i.d.. Subjective Date/time seen: 03/26/24 11:59 Interval history: Patient pain is improving. Chest is congested but no evidence of PNA. Ordered extra dose of Lasix 40 mg IV x 1. Patient started on Sotalol 80mg PO BID.INR 2.6, continue her home dose 6mg Warfarin. Review of Systems Review of Systems: All systems reviewed & are unremarkable except as noted in HPI and below Constitutional: Constitutional: Reports as per HPI and Reports no additional constitutional complaints Eyes: Eyes: Reports as per HPI and Reports no additional eye complaints ENT: Reports system reviewed and no additional complaints, except as documented and Reports as per HPI Cardiovascular: Cardiovascular: Reports as per HPI and Reports no additional cardiovascular complaints Respiratory: Respiratory: Reports as per HPI and Reports no additional respiratory complaints Gastrointestinal: Gastrointestinal: Reports as per HPI and Reports no additional gastrointestinal complaints Genitourinary: Genitourinary: Reports no additional female genitourinary complaints and Reports as per HPI Musculoskeletal: Musculoskeletal: Reports no additional musculoskeletal complaints and Reports as per HPI Integumentary/Breasts: Skin/Breast: Reports system reviewed and no additional complaints, except as docu and Reports as per HPI Neurologic: Reports system reviewed and no additional complaints, except as documented and Reports as per HPI Psychiatric: Psychiatric: Reports no additional psychiatric complaints and Reports as per HPI Exam Narrative: General: In no acute distress, well nourished Cardiac: Normal S1 and S2. NSR, No murmur, gallops or friction rubs, peripheral pulses intact. Respiratory: Lungs clear bilaterally , no adventitious lung sounds, currently on room air, raspy cough Gastrointestinal: soft, non-distended, non-tender, normoactive bowel sounds. : voiding without difficulty. Neuro: Alert and oriented x4 Objective Data Vital Signs Vital Signs: Vital Signs - 24 hr 03/25/24 12:00 03/25/24 13:30 03/25/24 14:00 Temperature Pulse Rate 62 86 Pulse Rate [With Activity During Therapy Session] Respiratory Rate Blood Pressure Pulse Oximetry Oxygen Delivery Room Air Fraction of Inspired Oxygen 03/25/24 16:00 03/25/24 16:00 03/25/24 16:00 Temperature 98.6 F Pulse Rate 86 78 Pulse Rate [With Activity During Therapy Session] Respiratory Rate 22 H Blood Pressure 119/63 Pulse Oximetry 100 Oxygen Delivery Room Air Fraction of Inspired Oxygen 03/25/24 18:00 03/25/24 20:00 03/25/24 20:00 Temperature 97.9 F Pulse Rate 61 70 70 Pulse Rate [With Activity During Therapy Session] Respiratory Rate 19 Blood Pressure 108/51 L Pulse Oximetry 98 Oxygen Delivery Fraction of Inspired Oxygen 03/25/24 20:00 03/25/24 20:35 03/25/24 20:35 Temperature Pulse Rate 68 Pulse Rate [With Activity During Therapy Session] Respiratory Rate 20 Blood Pressure Pulse Oximetry 96 Oxygen Delivery Room Air Room Air Fraction of Inspired Oxygen 21 03/25/24 20:49 03/25/24 20:52 03/25/24 22:00 Temperature Pulse Rate 66 62 58 L Pulse Rate [With Activity During Therapy Session] Respiratory Rate 20 Blood Pressure Pulse Oximetry Oxygen Delivery Fraction of Inspired Oxygen 03/25/24 23:55 03/26/24 00:00 03/26/24 00:00 Temperature 97.9 F Pulse Rate 58 L 61 Pulse Rate [With Activity During Therapy Session] Respiratory Rate 18 Blood Pressure 108/55 L Pulse Oximetry 100 Oxygen Delivery Room Air Fraction of Inspired Oxygen 03/26/24 01:25 03/26/24 01:36 03/26/24 02:00 Temperature Pulse Rate 62 55 L 57 L Pulse Rate [With Activity During Therapy Session] Respiratory Rate 16 16 Blood Pressure Pulse Oximetry Oxygen Delivery Fraction of Inspired Oxygen 03/26/24 04:00 03/26/24 04:00 03/26/24 04:00 Temperature 98.0 F Pulse Rate 62 61 Pulse Rate [With Activity During Therapy Session] Respiratory Rate 19 Blood Pressure 118/60 Pulse Oximetry 98 Oxygen Delivery Room Air Fraction of Inspired Oxygen 03/26/24 06:00 03/26/24 07:50 03/26/24 08:31 Temperature 99 F Pulse Rate 66 68 Pulse Rate [With Activity During Therapy Session] Respiratory Rate 18 Blood Pressure 119/50 L Pulse Oximetry 96 95 Oxygen Delivery Room Air Fraction of Inspired Oxygen 03/26/24 08:31 03/26/24 08:46 03/26/24 09:20 Temperature Pulse Rate 64 64 Pulse Rate [With Activity During Therapy Session] 80 Respiratory Rate 18 18 Blood Pressure Pulse Oximetry Oxygen Delivery Room Air Fraction of Inspired Oxygen 03/26/24 09:24 03/26/24 10:03 03/26/24 11:28 Temperature 98.2 F Pulse Rate 65 61 Pulse Rate [With Activity During Therapy Session] Respiratory Rate 18 Blood Pressure 108/70 Pulse Oximetry 96 Oxygen Delivery Room Air Fraction of Inspired Oxygen Intake/Output Intake/Output: Intake & Output 03/23/24 03/24/24 03/25/24 03/26/24 23:59 23:59 23:59 23:59 Intake Total 1060 830 970 490 Output Total 400 300 300 Balance 660 530 670 490 Meds/Results Medications: Active Medications Generic Name Dose Route Start Last Admin Trade Name Freq PRN Reason Stop Dose Admin Acetaminophen 1,000 mg 03/10/24 10:04 03/25/24 16:55 Acetaminophen 500 Mg Tablet PO 1,000 mg Q6H PRN Administration Mild Pain (1-3) or Fever Hydrocodone Bitart/Acetaminophen 1 tab 03/08/24 17:21 03/26/24 09:28 Hydrocodone/Acetaminophen (*Crx) 5-325 Mg Tablet PO 1 tab Q6H PRN Administration Pain Rated 4-6 Acetylcysteine 200 mg 03/22/24 20:00 03/26/24 08:30 Acetylcysteine 20% Inhal Soln 800 Mg/4 Ml Vial INHALATION 200 mg Q12HRT IAN Administration Alprazolam 0.25 mg 03/08/24 17:21 03/20/24 21:42 Alprazolam (*Crx) 0.25 Mg Tablet PO 0.25 mg HS PRN Administration Anxiety Benzocaine 1 lozenge 03/10/24 18:17 03/16/24 08:17 Benzocaine/Menthol (*Bkc) 18 Ea Lozenge PO 1 lozenge PRN PRN Administration Sore Throat Cyanocobalamin 1,000 mcg 03/09/24 09:00 03/26/24 09:28 Cyanocobalamin 1,000 Mcg Tablet PO 1,000 mcg DAILY IAN Administration Cyclobenzaprine HCl 5 mg 03/19/24 14:03 03/25/24 18:53 Cyclobenzaprine Hcl 5 Mg Tablet PO 5 mg Q8H PRN Administration Muscle Spasm Diclofenac Sodium 1 applic 03/10/24 10:04 03/22/24 09:14 Diclofenac Sodium 1% 100 Gm Gel (*Bkc) TOPICAL 1 applic QID PRN Administration joint pain Diclofenac Sodium 1 applic 03/19/24 17:00 03/26/24 09:28 Diclofenac Sodium 1% 100 Gm Gel (*Bkc) TOPICAL 1 applic QID IAN Administration Furosemide 20 mg 03/16/24 09:00 03/26/24 09:27 Furosemide 20 Mg Tablet PO 20 mg DAILY IAN Administration Gabapentin 300 mg 03/08/24 21:00 03/26/24 09:27 Gabapentin 300 Mg Capsule PO 300 mg Q12HR IAN Administration Guaifenesin 1,200 mg 03/13/24 12:50 03/26/24 09:27 Guaifenesin 12 Hr 600 Mg Tabcr PO 1,200 mg Q12HR IAN Administration Guaifenesin/Dextromethorphan 10 ml 03/11/24 23:14 03/14/24 07:53 Guaifenesin/Dextromethorphan 10 Ml Udc PO 10 ml Q4H PRN Administration Cough Hydromorphone HCl 0.2 mg 03/21/24 11:31 03/21/24 11:54 Hydromorphone Hcl Inj (*Crx) 1 Mg/Ml Syr IV PUSH 0.2 mg Q6H PRN Administration Pain Rated 7-10 Levalbuterol HCl 1.25 mg 03/22/24 14:00 03/26/24 08:30 Levalbuterol Neb 1.25 Mg/3 Ml INHALATION 1.25 mg Q6HRT IAN Administration Melatonin 5 mg 03/15/24 21:00 03/25/24 20:52 Melatonin 5 Mg Tablet PO 5 mg HS IAN Administration Methimazole 5 mg 03/09/24 09:00 03/26/24 09:27 Methimazole 5 Mg Tab PO 5 mg DAILY IAN Administration Cinacalcet 15 Mg 0 each 03/10/24 09:00 03/26/24 09:27 Tablet PO 04/09/24 08:59 15 each DAILY IAN Administration Pantoprazole Sodium 40 mg 03/09/24 09:00 03/26/24 09:26 Pantoprazole 40 Mg Tablet PO 40 mg QAM IAN Administration Polyethylene Glycol 17 gm 03/22/24 09:00 03/26/24 09:26 Polyethylene Glycol 3350 17 Gm Powd.Pack PO Not Given QAM IAN Potassium Chloride 10 meq 03/08/24 21:00 03/25/24 20:52 Potassium Chloride 10 Meq Er Tablet PO 10 meq HS IAN Administration Simvastatin 10 mg 03/08/24 21:00 03/25/24 20:52 Simvastatin 10 Mg Tablet PO 10 mg HS IAN Administration Sotalol HCl 80 mg 03/25/24 09:15 03/26/24 09:24 Sotalol Hcl 80 Mg Tablet PO 80 mg Q12HR IAN Administration Venlafaxine HCl 150 mg 03/09/24 09:00 03/26/24 09:24 Venlafaxine Hcl Xr 75 Mg Cap.Er.24h PO 150 mg DAILY IAN Administration Vitamin D 1,000 units 03/09/24 09:00 03/26/24 09:28 Cholecalciferol 1,000 Units Tablet PO 1,000 units DAILY IAN Administration Warfarin Sodium 9 mg 03/11/24 17:00 03/13/24 17:40 Warfarin (*Pbkc) 3 Mg Tablet PO 9 mg DAILY@1700 [facility] Administration Warfarin Sodium 6 mg 03/22/24 17:00 03/25/24 16:56 Warfarin (*Pbkc) 3 Mg Tablet PO 6 mg DAILY@1700 [facility] Administration Radiology Results: ITS Impressions Chest/Abdomen/Pelvis CT 03/21/24 12:36 IMPRESSION: CHEST: 1. No acute cardiopulmonary pathology. 2. Compression fracture of T6. MRI evaluation advised. ABDOMEN/PELVIS: 1. Hematoma in the left anterior abdominal wall. 2. Constipation. Lexiscan Stress Test 03/22/24 12:28 IMPRESSION: 1. No definite ischemia or infarct. 2. Normal left ventricular ejection fraction measuring 56%. Lumbar Spine X-Ray 03/23/24 13:40 IMPRESSION: 1. Mild lumbar spondylosis. 2. Lumbar dextroscoliosis. Cervical Spine CT 03/24/24 15:01 IMPRESSION: 1. Moderate cervical spondylosis, stable from 11/13/2020. 2. Cervicothoracic levoscoliosis. Chest X-Ray 03/26/24 06:15 IMPRESSION: 1. Cardiomegaly. Labs Labs: Laboratory Results - last 24 hr 03/25/24 03/26/24 03/26/24 15:59 05:02 06:14 WBC 10.7 H RBC 2.49 L Hgb 8.1 L Hct 26.1 L MCV 104.8 H MCH 32.5 MCHC 31.0 L RDW 13.9 Plt Count 367 MPV 12.3 H PT 28.5 H INR 2.6 Sodium 133 L Potassium 4.2 Chloride 99 Carbon Dioxide 31 H Anion Gap 3 L BUN 19 H Creatinine 1.07 H Estim Creat Clear Calc 40 Estimated GFR 49 L Glucose 66 POC Capillary Glucose 96 65 Calcium 9.3 Total Bilirubin 0.8 AST 64 H ALT 43 H Alkaline Phosphatase 78 Total Protein 6.0 L Albumin 2.9 L 03/26/24 07:23 WBC RBC Hgb Hct MCV MCH MCHC RDW Plt Count MPV PT INR Sodium Potassium Chloride Carbon Dioxide Anion Gap BUN Creatinine Estim Creat Clear Calc Estimated GFR Glucose POC Capillary Glucose 120 H Calcium Total Bilirubin AST ALT Alkaline Phosphatase Total Protein Albumin Hospitalist MIPS Advance Care Plan I have confirmed that the patient's Advanced Care Plan is present, code status is documented, or surrogate decision maker is listed in patient medical record.: Yes Medication Reconciliation I have utilized all available resources to obtain, update and review the patients current medications (includes all prescriptions, OTC, herbals, cannabis, and nutritional supplements).: Yes
[2024-03-26] MEDS: WARFARIN (*PBKC) 3 MG TABLET 6 MG PO (16:31)
[2024-03-26] MEDS: POTASSIUM CHLORIDE 10 MEQ ER TABLET PO (22:15)
[2024-03-26] MEDS: SIMVASTATIN 10 MG TABLET PO (22:15)
[2024-03-26] MEDS: MELATONIN 5 MG TABLET PO (22:15)
[2024-03-26] MEDS: SOTALOL HCL 40 MG TABLET PO (22:16)
[2024-03-26] MEDS: CYCLOBENZAPRINE HCL 5 MG TABLET PO (22:28)
[2024-03-27] VITALS (26 sets, daily range): BP systolic 106–131; BP diastolic 38–67; PULSE 44–73; RESP 16–20; TEMP 36.5–37.7; O2SAT 92–100
--- NOTE | 2024-03-27 00:11 | ECG_ITS ---
Test Date: 2024-03-27 00:45:21 Measurements Intervals [place] Rate: 65 P: 0 [place]: 0 QRS: -16 QRSD: 146 T: 100 QT: 431 QTc: 450 Interpretive Statements ATRIAL FIBRILLATION LEFT BUNDLE BRANCH BLOCK [120+ ms QRS DURATION, 80+ ms Q/S IN V1/V2, 85+ ms R IN I/aVL/V5/V6] WARNING: DATA QUALITY MAY AFFECT INTERPRETATION Compared to ECG 03/26/2024 11:37:42 no change Electronically Signed On 03-27-2024 10:04:50 [employer] by Diogenes Laguna M.D.
[2024-03-27] MEDS: HYDROcodone/acetaminophen (*CRX) 5-325 MG TABLET 1 TAB PO (00:49)
[2024-03-27] MEDS: DICLOFENAC SODIUM 1% 100 GM GEL (*BKC) 1 APPLIC TOPICAL ×5 (00:50→22:16)
--- NOTE | 2024-03-27 01:18 | PC.NURSE ---
03/26/249: Spoke with Dr Fernandez and received OK to continue xanax and norco as currently ordered.
[2024-03-27] MEDS: LEVALBUTEROL NEB 1.25 MG/3 ML INHALATION ×4 (01:46→20:51)
[2024-03-27 04:39] LABS: Hematocrit 26.7 % (37.0-47.0); Hemoglobin 8.4 g/dL (12.0-15.0); Mean Corpuscular HGB Conc 31.5 g/dl (32-36); Mean Corpuscular Hemoglobin 32.7 pg (26-34); Mean Corpuscular Volume 103.9 fl (80-100); Mean Platelet Volume 12.2 fl (7.4-10.4); Platelet Count Result 348 k/mm3 (150-375); Red Blood Count 2.57 M/mm3 (4.2-5.4); Red Cell Distribution Width 13.9 % (11.5-14.5); White Blood Count 9.5 K/mm3 (4.5-10.0)
[2024-03-27 04:51] LABS: Prothrombin Time 32.2 Seconds (11.1-14.7)
[2024-03-27 04:52] LABS: Alanine Aminotransferase 36 U/L (6-35); Albumin Level 2.8 g/dL (3.5-5.1); Alkaline Phosphatase 75 U/L (38-126); Anion Gap 3 mmol/L (4-12); Aspartate Amino Transferase 43 U/L (14-36); Bilirubin,Total 0.7 mg/dL (0.2-1.3); Blood Urea Nitrogen 17 mg/dL (7-17); Calcium 9.2 mg/dL (8.4-10.2); Carbon Dioxide 31 mmol/L (22-30); Chloride 99 mmol/L (98-107); Estimated CRCL calculation 37 ml/min; Estimated Glomerular Filt Rate 45; Glucose 72 mg/dL (65-110); Potassium 3.7 mmol/L (3.4-5.0); Sodium 133 mmol/L (137-145)
[2024-03-27] MEDS: ACETYLCYSTEINE 20% INHAL SOLN 800 MG/4 ML VIAL 200 MG INHALATION ×2 (07:33→20:52)
--- NOTE | 2024-03-27 08:39 | P.PNCA_ITS ---
Progress Note: A&P Assessment and Plan (1) Systolic dysfunction: Code(s): I51.9 - Heart disease, unspecified Status: Acute Assessment and Plan: 03/11/24 Moderate with EF 35-40% and was 45%, mild RVE, mechanical AV, mild AI, mod MR/TR. Euvolemic on Lasix. 03/22/24 Lexiscan myoview: Negative for ischemia. (2) Mechanical heart valve present: Code(s): Z95.2 - Presence of prosthetic heart valve Status: Acute Assessment and Plan: On Warfarin normally to keep INR 2.5-3.0 and managed by her PCP. Had anterior abdominal hematoma from Lovenox. Stopped Lovenox. (3) Atrial fibrillation: Code(s): I48.91 - Unspecified atrial fibrillation Status: Acute Assessment and Plan: Controlled now, but rate fluctuates here up to 160's bpm which could be due to volume depletion/anemia/pain. Normally she is not very fast on low dose Metoprolol 12.5 mg daily. Normally on Warfarin as per treatment for mechanical AVR. Decrease Metoprolol 25 mg TID. Started 03/25/24 Sotalol 80 mg BID to keep her in sinus rhythm. Check EKG post each dose x 5 doses to check QT interval. Decrease Sotalol 40 mg daily due to bradycardia into 40's bpm when in sinus rhythm and in 60's bpm in atrial fibrillation. (4) Hyperlipidemia: Qualifiers: Hyperlipidemia type: mixed hyperlipidemia Qualified Code(s): E78.2 - Mixed hyperlipidemia Code(s): E78.5 - Hyperlipidemia, unspecified Status: Acute Assessment and Plan: On Simvastatin. (5) HTN (hypertension): Qualifiers: Hypertension type: primary hypertension Qualified Code(s): I10 - Essential (primary) hypertension Code(s): I10 - Essential (primary) hypertension Status: Acute Assessment and Plan: Stable. (6) LBBB (left bundle branch block): Code(s): I44.7 - Left bundle-branch block, unspecified Status: Acute (7) Elevated troponin: Code(s): R77.8 - Other specified abnormalities of plasma proteins Status: Inactive Assessment and Plan: Flat and slightly elevated at .055. Could be related to demand ischemia from intermittent rapid HR/CKD/anemia. Subjective Date/time seen: 03/27/24 08:39 Interval history: No chest pain or sob. Exam Const: General: cooperative, healthy appearing and comfortable Orientation/consciousness: oriented to person, oriented to place and oriented to time Resp: Auscultation: clear to auscultation bilaterally, no crackles, no rales, no rhonchi and no wheezes Cardio: Rate: bradycardic Rhythm: abnormal rhythm Heart sounds: Clicking heart sound present (S2) and no murmurs Peripheral pulses: dorsalis pedis present Neuro: General: oriented to person, oriented to place and oriented to time Extrem: Right lower extremity: no edema Left lower extremity: no edema Objective Data Vital Signs Vital Signs: Vital Signs - 24 hr 03/26/24 08:46 03/26/24 09:20 03/26/24 09:24 Temperature Pulse Rate 64 65 Pulse Rate [With Activity During Therapy Session] 80 Respiratory Rate 18 Blood Pressure Pulse Oximetry Oxygen Delivery Room Air 03/26/24 10:00 03/26/24 10:03 03/26/24 11:28 Temperature 98.2 F Pulse Rate 75 61 Pulse Rate [With Activity During Therapy Session] Respiratory Rate 18 Blood Pressure 108/70 Pulse Oximetry 96 Oxygen Delivery Room Air 03/26/24 12:00 03/26/24 12:00 03/26/24 14:00 Temperature Pulse Rate 63 61 Pulse Rate [With Activity During Therapy Session] Respiratory Rate Blood Pressure Pulse Oximetry Oxygen Delivery Room Air 03/26/24 14:01 03/26/24 14:10 03/26/24 15:30 Temperature 98.3 F Pulse Rate 66 60 62 Pulse Rate [With Activity During Therapy Session] Respiratory Rate 18 18 16 Blood Pressure 126/59 L Pulse Oximetry 95 Oxygen Delivery 03/26/24 16:00 03/26/24 16:00 03/26/24 18:00 Temperature Pulse Rate 60 68 Pulse Rate [With Activity During Therapy Session] Respiratory Rate Blood Pressure Pulse Oximetry Oxygen Delivery Room Air 03/26/24 19:03 03/26/24 19:44 03/26/24 19:44 Temperature 98.5 F Pulse Rate 63 68 Pulse Rate [With Activity During Therapy Session] Respiratory Rate 20 22 H Blood Pressure 133/44 L Pulse Oximetry 98 94 Oxygen Delivery Room Air 03/26/24 19:52 03/26/24 20:00 03/26/24 20:00 Temperature Pulse Rate 62 59 L Pulse Rate [With Activity During Therapy Session] Respiratory Rate 22 H Blood Pressure Pulse Oximetry Oxygen Delivery Room Air 03/26/24 22:00 03/26/24 22:16 03/27/24 00:00 Temperature Pulse Rate 65 67 64 Pulse Rate [With Activity During Therapy Session] Respiratory Rate Blood Pressure Pulse Oximetry Oxygen Delivery 03/27/24 00:45 03/27/24 00:45 03/27/24 01:47 Temperature 100 F H Pulse Rate 64 64 63 Pulse Rate [With Activity During Therapy Session] Respiratory Rate 16 16 18 Blood Pressure 117/43 L Pulse Oximetry 95 95 Oxygen Delivery Room Air 03/27/24 01:53 03/27/24 02:00 03/27/24 04:00 Temperature Pulse Rate 64 65 52 L Pulse Rate [With Activity During Therapy Session] Respiratory Rate 18 Blood Pressure Pulse Oximetry Oxygen Delivery 03/27/24 04:20 03/27/24 04:20 03/27/24 06:49 Temperature 98.1 F Pulse Rate 64 64 50 L Pulse Rate [With Activity During Therapy Session] Respiratory Rate 18 18 Blood Pressure 106/44 L Pulse Oximetry 95 95 Oxygen Delivery Room Air 03/27/24 07:36 03/27/24 07:48 03/27/24 07:48 Temperature Pulse Rate 55 L 59 L Pulse Rate [With Activity During Therapy Session] Respiratory Rate 20 20 Blood Pressure Pulse Oximetry 93 Oxygen Delivery Room Air 03/27/24 08:00 Temperature 97.8 F Pulse Rate 62 Pulse Rate [With Activity During Therapy Session] Respiratory Rate 18 Blood Pressure 121/45 L Pulse Oximetry 98 Oxygen Delivery Intake/Output Intake/Output: Intake & Output 03/24/24 03/25/24 03/26/24 03/27/24 23:59 23:59 23:59 23:59 Intake Total 830 970 970 200 Output Total 300 300 900 200 Balance 530 670 70 0 Meds/Results Medications: Active Medications Generic Name Dose Route Start Last Admin Trade Name Freq PRN Reason Stop Dose Admin Acetaminophen 1,000 mg 03/10/24 10:04 03/25/24 16:55 Acetaminophen 500 Mg Tablet PO 1,000 mg Q6H PRN Administration Mild Pain (1-3) or Fever Hydrocodone Bitart/Acetaminophen 1 tab 03/08/24 17:21 03/27/24 00:49 Hydrocodone/Acetaminophen (*Crx) 5-325 Mg Tablet PO 04/05/24 23:59 1 tab Q6H PRN Administration Pain Rated 4-6 Acetylcysteine 200 mg 03/22/24 20:00 03/27/24 07:33 Acetylcysteine 20% Inhal Soln 800 Mg/4 Ml Vial INHALATION 200 mg Q12HRT IAN Administration Alprazolam 0.25 mg 03/08/24 17:21 03/20/24 21:42 Alprazolam (*Crx) 0.25 Mg Tablet PO 04/05/24 23:59 0.25 mg HS PRN Administration Anxiety Benzocaine 1 lozenge 03/10/24 18:17 03/16/24 08:17 Benzocaine/Menthol (*Bkc) 18 Ea Lozenge PO 1 lozenge PRN PRN Administration Sore Throat Cyanocobalamin 1,000 mcg 03/09/24 09:00 03/26/24 09:28 Cyanocobalamin 1,000 Mcg Tablet PO 1,000 mcg DAILY IAN Administration Cyclobenzaprine HCl 5 mg 03/19/24 14:03 03/26/24 22:28 Cyclobenzaprine Hcl 5 Mg Tablet PO 5 mg Q8H PRN Administration Muscle Spasm Diclofenac Sodium 1 applic 03/10/24 10:04 03/27/24 00:50 Diclofenac Sodium 1% 100 Gm Gel (*Bkc) TOPICAL 1 applic QID PRN Administration joint pain Diclofenac Sodium 1 applic 03/19/24 17:00 03/26/24 22:17 Diclofenac Sodium 1% 100 Gm Gel (*Bkc) TOPICAL 1 applic QID IAN Administration Furosemide 20 mg 03/16/24 09:00 03/26/24 09:27 Furosemide 20 Mg Tablet PO 20 mg DAILY IAN Administration Gabapentin 300 mg 03/08/24 21:00 03/26/24 22:16 Gabapentin 300 Mg Capsule PO 300 mg Q12HR IAN Administration Guaifenesin 1,200 mg 03/13/24 12:50 03/26/24 22:14 Guaifenesin 12 Hr 600 Mg Tabcr PO 1,200 mg Q12HR IAN Administration Guaifenesin/Dextromethorphan 10 ml 03/11/24 23:14 03/14/24 07:53 Guaifenesin/Dextromethorphan 10 Ml Udc PO 10 ml Q4H PRN Administration Cough Hydromorphone HCl 0.2 mg 03/21/24 11:31 03/21/24 11:54 Hydromorphone Hcl Inj (*Crx) 1 Mg/Ml Syr IV PUSH 0.2 mg Q6H PRN Administration Pain Rated 7-10 Levalbuterol HCl 1.25 mg 03/22/24 14:00 03/27/24 07:34 Levalbuterol Neb 1.25 Mg/3 Ml INHALATION 1.25 mg Q6HRT IAN Administration Melatonin 5 mg 03/15/24 21:00 03/26/24 22:15 Melatonin 5 Mg Tablet PO 5 mg HS IAN Administration Methimazole 5 mg 03/09/24 09:00 03/26/24 09:27 Methimazole 5 Mg Tab PO 5 mg DAILY IAN Administration Cinacalcet 15 Mg 0 each 03/10/24 09:00 03/26/24 09:27 Tablet PO 04/09/24 08:59 15 each DAILY IAN Administration Pantoprazole Sodium 40 mg 03/09/24 09:00 03/26/24 09:26 Pantoprazole 40 Mg Tablet PO 40 mg QAM IAN Administration Polyethylene Glycol 17 gm 03/22/24 09:00 03/26/24 09:26 Polyethylene Glycol 3350 17 Gm Powd.Pack PO Not Given QAM IAN Potassium Chloride 10 meq 03/08/24 21:00 03/26/24 22:15 Potassium Chloride 10 Meq Er Tablet PO 10 meq HS IAN Administration Simvastatin 10 mg 03/08/24 21:00 03/26/24 22:15 Simvastatin 10 Mg Tablet PO 10 mg HS IAN Administration Sotalol HCl 40 mg 03/26/24 21:00 03/26/24 22:16 Sotalol Hcl 40 Mg Tablet PO 40 mg Q12HR IAN Administration Venlafaxine HCl 150 mg 03/09/24 09:00 03/26/24 09:24 Venlafaxine Hcl Xr 75 Mg Cap.Er.24h PO 150 mg DAILY IAN Administration Vitamin D 1,000 units 03/09/24 09:00 03/26/24 09:28 Cholecalciferol 1,000 Units Tablet PO 1,000 units DAILY IAN Administration Warfarin Sodium 9 mg 03/11/24 17:00 03/13/24 17:40 Warfarin (*Pbkc) 3 Mg Tablet PO 9 mg DAILY@1700 [facility] Administration Warfarin Sodium 6 mg 03/22/24 17:00 03/26/24 16:31 Warfarin (*Pbkc) 3 Mg Tablet PO 6 mg DAILY@1700 [facility] Administration Radiology Results: ITS Impressions Chest/Abdomen/Pelvis CT 03/21/24 12:36 IMPRESSION: CHEST: 1. No acute cardiopulmonary pathology. 2. Compression fracture of T6. MRI evaluation advised. ABDOMEN/PELVIS: 1. Hematoma in the left anterior abdominal wall. 2. Constipation. Lexiscan Stress Test 03/22/24 12:28 IMPRESSION: 1. No definite ischemia or infarct. 2. Normal left ventricular ejection fraction measuring 56%. Lumbar Spine X-Ray 03/23/24 13:40 IMPRESSION: 1. Mild lumbar spondylosis. 2. Lumbar dextroscoliosis. Cervical Spine CT 03/24/24 15:01 IMPRESSION: 1. Moderate cervical spondylosis, stable from 11/13/2020. 2. Cervicothoracic levoscoliosis. Chest X-Ray 03/26/24 06:15 IMPRESSION: 1. Cardiomegaly. Labs Labs: Laboratory Results - last 24 hr 03/27/24 04:16 WBC 9.5 RBC 2.57 L Hgb 8.4 L Hct 26.7 L MCV 103.9 H MCH 32.7 MCHC 31.5 L RDW 13.9 Plt Count 348 MPV 12.2 H PT 32.2 H INR 3.0 Sodium 133 L Potassium 3.7 Chloride 99 Carbon Dioxide 31 H Anion Gap 3 L BUN 17 Creatinine 1.16 H Estim Creat Clear Calc 37 Estimated GFR 45 L Glucose 72 Calcium 9.2 Total Bilirubin 0.7 AST 43 H ALT 36 H Alkaline Phosphatase 75 Total Protein 6.0 L Albumin 2.8 L
[2024-03-27] MEDS: VENLAFAXINE HCL XR 75 MG CAP.ER.24H 150 MG PO (09:49)
[2024-03-27] MEDS: guaiFENesin 12 HR 600 MG TABCR 1200 MG PO ×2 (09:49→22:15)
[2024-03-27] MEDS: FUROSEMIDE 20 MG TABLET PO (09:49)
[2024-03-27] MEDS: GABAPENTIN 300 MG CAPSULE PO ×2 (09:49→22:15)
[2024-03-27] MEDS: PANTOPRAZOLE 40 MG TABLET PO (09:49)
[2024-03-27] MEDS: methiMAzole 5 MG TAB PO (09:49)
[2024-03-27] MEDS: CHOLECALCIFEROL 1,000 UNITS TABLET 1000 UNITS PO (09:49)
[2024-03-27] MEDS: CYANOCOBALAMIN 1,000 MCG TABLET 1000 MCG PO (09:49)
[2024-03-27] MEDS: CINACALCET PO (09:50)
[2024-03-27] MEDS: FUROSEMIDE INJ 40 MG/4 ML VIAL IV PUSH (10:21)
[2024-03-27 11:14] LABS: Influenza A QL RT-PCR Negative (Negative); Influenza B QL RT-PCR Negative (Negative); RSV RNA, RT-PCR Negative (Negative); SARS-CoV-2 RNA PCR Negative (Negative)
--- NOTE | 2024-03-27 14:09 | P.PNIM_ITS ---
Progress Note: A&P Assessment and Plan (1) Mechanical heart valve present: Code(s): Z95.2 - Presence of prosthetic heart valve Status: Acute Assessment and Plan: 03/21 : I assumed care today. Patient INR is 3.1. Patient target INR is 2.5-3. Currently warfarin is on hold. Patient is also on Lovenox 80 mg b.i.d.. Since patient is already over therapeutic INR and in spite of receiving Lovenox makes her over anticoagulated. So today discontinued Lovenox. Given her warfarin 5 mg x 1 and possibly restart her home warfarin dosage 9mg from tomorrow. I performed CT chest/abdomen/pelvis which shows hematoma in the left anterior abdominal wall 3 x 2.5 cm. Discussed the goal of care with the nursing team. Patient wants some time to decide on her code status. 03/22: Surgery evaluated the patient under report overlying skin appears intact and there is no signs of infection. No indication for surgical intervention at this time. Patient has some cough and congestion. Patient is already on Mucinex, cornet. Ordered Xopenex around the clock for 2 days and Mucomyst b.i.d.. Discussed with the pharmacist and resume her home dose 6 mg not the 9 mg from today. Patient underwent a Lexiscan today 03/23: INR 3.3. Holding warfarin home dose is 6 mg. Hematoma of the abdominal wall has been evaluated by the surgery and currently does not need surgical intervention. Patient underwent Lexiscan yesterday which shows: 1. No definite ischemia or infarct. 2. Normal left ventricular ejection fraction measuring 56%. 03/24: Today patient is complaining about neck pain. Ordered Cervical CT. INR is 3.1, holding warfarin. Lexiscan is negative.In regards to hematoma no indication for surgical intervention at this time. 03/25: Today morning rapid response was called due to increased heart rate in 170s/180s. During my evaluation patient heart rate was already down to 110s/120s. Patient was evaluated by the Cardiology at the time who who started her on sotalol 80 mg p.o. b.i.d.. Patient is already on metoprolol 25 mg p.o. t.i.d.. Patient INR is 2.5 and restarted her home warfarin does 6 mg. Possible discharge to SNF after stabilizing her heart rate. 03/26: Patient pain is improving. Chest is congested but no evidence of PNA. Ordered extra dose of Lasix 40 mg IV x 1. Patient started on Sotalol 80mg PO BID.INR 2.6, continue her home dose 6mg Warfarin. 03/27: INR 3, continue home dose Warfarin 6mg PO QD.Advised aggressive incentive spirometry and Cornet valve. Decreased her Sotalol dose to 40mg PO QD from Sotalol 80mg PO BID Audible mechanical heart valve. INR subtherapeutic for several days, 1.5, 1.4, 1 today. Next of Kin, PCP manages INR and warfarin doses for her. Next of Kin, Anshul coordinates with the office. The last 2 weeks before admission she was taking 6 mg thursday-, 5mg thursday, sat, sun. Generally has INR checks ever 2 weeks Goal INR 2.5-3.5 with her mechanical valve. Izzy reports 9mg daily is a higher dose than she has needed previously --Started a heparin drip with a bolus for subtherapeutic INR --Follow CBC since trending down but may be dilutional. Stable overnight --Warfarin 8mg<9mg daily --Daily INR, closer to goal --Coordinate INR checks & follow up plan with PCP's office, Dr. Sanjeev Rosenberg 03/07 1.5 03/08 Warfarin 6mg 03/09 1.4 Warfarin 6mg 03/10 1 Warfarin 8mg 03/11 1.7 Warfarin 9mg 03/12 2.1 & 2.2 Warfarin 9mg (lab said it was likely run twice for a precision check) 03/14: * 3.9 - Will hold tonight's dose. * Continue to trend daily INR's * Therapeutically dosed Lovenox is discontinued at this time as pt has been receiving it as a bridge. 03/15 * INR 4.1 * Continue to hold Warfarin * Continue to trend daily INR * Reports passing a small amount of bright red blood today after bowel movement * Continue to monitor. * Patient on Augmentin which can make therapeutic trend challenging 03/16 * INR 3.9 * Continue to hold Warfarin 03/17 * INR 3.3 * Continue to hold Warfarin 03/18 * INR 3.4 * Continue to hold Warfarin for now 03/19 * INR 3.5 * Continue to hold warfarin 03/20 * INR 3.2 today * Continue to hold Warfarin 03/21 INR 3.1 Discontinue Lovenox due to over anticoagulation Supratherapeutic INR 3.1 Hold warfarin Evidence of hematoma in the left anterior abdominal wall 3 x 2.5 cm (2) Palpitations: Code(s): R00.2 - Palpitations Status: Acute Assessment and Plan: - Likely due to PAF with RVR. - Better after hydration and resuming home meds. (3) Acute kidney injury: Code(s): N17.9 - Acute kidney failure, unspecified Status: Acute Assessment and Plan: Ddx pre-renal vs poor PO intake vs meds vs other. s/p 500 bolus with tachycardia --Resumed lasix --Creatinine stable (4) HTN (hypertension): Qualifiers: Hypertension type: primary hypertension Qualified Code(s): I10 - Essential (primary) hypertension Code(s): I10 - Essential (primary) hypertension Status: Acute Assessment and Plan: - Appears well controlled. - Continue metoprolol, changed from XL to IR for titration - Follow VS (5) Hyperlipidemia: Qualifiers: Hyperlipidemia type: mixed hyperlipidemia Qualified Code(s): E78.2 - Mixed hyperlipidemia Code(s): E78.5 - Hyperlipidemia, unspecified Status: Acute Assessment and Plan: * continue simvastatin (6) Shortness of breath: Code(s): R06.02 - Shortness of breath Status: Acute Assessment and Plan: Mildly tachypneic. Not obviously overloaded on exam, likely 2/2 pneumonia --Started heparin drip, if not resolved consider a CT r/o PE, but is on warfarin chronically for mechanical heart valve --Treatment of pneumonia and heart failure, rate control afib --PEP therapy for airway clearance (7) Anemia: Code(s): D64.9 - Anemia, unspecified Status: Acute Assessment and Plan: Blood count trending down since admission but may be dilutional 14.2>11.1 Iron panel showing iron deficiency anemia, Total Iron and Tsat low. B12 636. LDH 245 --iron sucrose 300mg x3 doses --Follow CBC --If downtrending would need GI consult on chronic anticoagulation (8) Heart failure, diastolic, acute on chronic: Code(s): I50.33 - Acute on chronic diastolic (congestive) heart failure Status: Acute Assessment and Plan: 08/24/23 Echo: TDS. EF 45%, biatrial enlargement, suspect (YADIRA 1.4 cm2), mod MR, mild-mod TR. s/p 500ml fluid bolus, now back on IV lasix NT-proBNP 10,000 Resume lasix, 20mg IV daily & increase as able TTE 03/14/24: * Chronic in nature. * Appears euvolemic. * Continue Lasix 03/15/23: * Will increase to 40 mg IVP lasix today * Course bilaterally with peripheral swelling 03/16 * continue Lasix 03/17 * Transition to oral Lasix * Appears euvolemic 03/18 * Flipped into A fib with RVR today * Lungs sounding course * Will repeat CXR now * Last Echo on 03/11/24 shown LVEF of 3-40% 03/19 * Back in NSR * Continue telemetry monitoring * CXR was negative * proBNP elevated, however lung sounds are clear 03/20 * Flipped back into A fib RVR overnight * Repeat EKG showing new LBBB--Cardiology was notified. * Mild troponin bump--likely demand ischemia * Plan for Lexiscan stress test tomorrow to further evaluate 03/22: No significant finding in Lexiscan (9) Pneumonia: Code(s): J18.9 - Pneumonia, unspecified organism Status: Acute Assessment and Plan: Resolved. Hospital associated pneumonia. Chest x-ray showed possible RLL pneumonia. Has crackles on exam. Intermittent fevers. Resolved today after starting unasyn. On room air --Started Unasyn, change to augmentin if improving --If new oxygen requirements, broaden to Cefepime/Vanc/Flagyl --Also has a sore throat, checking strep culture. Chlorseptic drops & tylenol prn --Urine for strep pneumo --Follow up chest x-ray if new oxygen requirement or not resolving --Staph screen. Can broaden to Cefepime/Vanc if worsening --Sputum culture if able to collect. Would only use to guide treatment if not improving with current antibiotics 03/14/24: * Continue Unasyn. Could likely switch to oral Augmentin tomorrow. 03/15/24: * Unasyn changed to Augmentin 03/18/24 * Augmentin finished today (10) Atrial fibrillation with RVR: Code(s): I48.91 - Unspecified atrial fibrillation Status: Acute Assessment and Plan: Home metoprolol ER 25mg daily Resting HR 70s-90s, 100-130's with activity on 03/10. Rate controlled with increased dose of metoprolol and a 500ml fluid bolus - Change Metoprolol ER 25mg daily to metoprolol tartrate 12.5mg q6 and titrate. 5mg IV metoprolol --INR goal as noted for mechanical heart valve. INR can be affected by antibiotics --Cardiology consulted, appreciate recommendations 03/15/24: * Rate controlled in the 90's * Continue Metoprolol * D/C continuous tele * Hold Warfarin due to supratherapeutic INR 03/17 * Continue to hold Warfarin 03/18 * Went back into Afib RVR today * Continue to hold Warfarin due to supratherapeutic INR * Will increase Metoprolol to 25 mg q6h for better rate control * Continue tele * Cardiology reconsulted * repeating CXR 03/19 * In NSR now, continue Metoprolol 25 mg q6h * Continue tele for now * Cardiology following * CXR negative 03/20 * Flipped back into A fib RVR overnight * Repeat EKG showing new LBBB--Cardiology was notified. * Mild troponin bump--likely demand ischemia * Plan for Lexiscan stress test tomorrow to further evaluate 03/21 Metoprolol tartrate 50 mg p.o. t.i.d. Warfarin 5 mg p.o. q.d. 03/25: Today morning rapid response was called due to increased heart rate in 170s/180s. During my evaluation patient heart rate was already down to 110s/120s. Patient was evaluated by the Cardiology at the time who who started her on sotalol 80 mg p.o. b.i.d.. Patient is already on metoprolol 25 mg p.o. t.i.d.. Subjective Date/time seen: 03/27/24 14:09 Interval history: Pt reports feeling better. Also her pain level is better today. INR 3, continue home dose Warfarin 6mg PO QD.Advised aggressive incentive spirometry and Cornet valve Review of Systems Review of Systems: All systems reviewed & are unremarkable except as noted in HPI and below Constitutional: Constitutional: Reports as per HPI and Reports no additional constitutional complaints Eyes: Eyes: Reports as per HPI and Reports no additional eye complaints ENT: Reports system reviewed and no additional complaints, except as documented and Reports as per HPI Cardiovascular: Cardiovascular: Reports as per HPI and Reports no additional cardiovascular complaints Respiratory: Respiratory: Reports as per HPI and Reports no additional res piratory complaints Gastrointestinal: Gastrointestinal: Reports as per HPI and Reports no additional gastrointestinal complaints Genitourinary: Genitourinary: Reports no additional female genitourinary complaints and Reports as per HPI Musculoskeletal: Musculoskeletal: Reports no additional musculoskeletal complaints and Reports as per HPI Integumentary/Breasts: Skin/Breast: Reports system reviewed and no additional complaints, except as docu and Reports as per HPI Neurologic: Reports system reviewed and no additional complaints, except as documented and Reports as per HPI Psychiatric: Psychiatric: Reports no additional psychiatric complaints and Reports as per HPI Exam Narrative: General: In no acute distress, well nourished Cardiac: Normal S1 and S2. NSR, No murmur, gallops or friction rubs, peripheral pulses intact. Respiratory: Lungs clear bilaterally , no adventitious lung sounds, currently on room air, raspy cough Gastrointestinal: soft, non-distended, non-tender, normoactive bowel sounds. : voiding without difficulty. Neuro: Alert and oriented x4 Objective Data Vital Signs Vital Signs: Vital Signs - 24 hr 03/26/24 14:10 03/26/24 15:30 03/26/24 16:00 Temperature 98.3 F Pulse Rate 60 62 60 Respiratory Rate 18 16 Blood Pressure 126/59 L Pulse Oximetry 95 Oxygen Delivery 03/26/24 16:00 03/26/24 18:00 03/26/24 19:03 Temperature 98.5 F Pulse Rate 68 63 Respiratory Rate 20 Blood Pressure 133/44 L Pulse Oximetry 98 Oxygen Delivery Room Air 03/26/24 19:44 03/26/24 19:44 03/26/24 19:52 Temperature Pulse Rate 68 62 Respiratory Rate 22 H 22 H Blood Pressure Pulse Oximetry 94 Oxygen Delivery Room Air 03/26/24 20:00 03/26/24 20:00 03/26/24 22:00 Temperature Pulse Rate 59 L 65 Respiratory Rate Blood Pressure Pulse Oximetry Oxygen Delivery Room Air 03/26/24 22:16 03/27/24 00:00 03/27/24 00:45 Temperature 100 F H Pulse Rate 67 64 64 Respiratory Rate 16 Blood Pressure 117/43 L Pulse Oximetry 95 Oxygen Delivery 03/27/24 00:45 03/27/24 01:47 03/27/24 01:53 Temperature Pulse Rate 64 63 64 Respiratory Rate 16 18 18 Blood Pressure Pulse Oximetry 95 Oxygen Delivery Room Air 03/27/24 02:00 03/27/24 04:00 03/27/24 04:20 Temperature 98.1 F Pulse Rate 65 52 L 64 Respiratory Rate 18 Blood Pressure 106/44 L Pulse Oximetry 95 Oxygen Delivery 03/27/24 04:20 03/27/24 06:49 03/27/24 07:36 Temperature Pulse Rate 64 50 L 55 L Respiratory Rate 18 20 Blood Pressure Pulse Oximetry 95 Oxygen Delivery Room Air 03/27/24 07:48 03/27/24 07:48 03/27/24 08:00 Temperature 97.8 F Pulse Rate 59 L 62 Respiratory Rate 20 18 Blood Pressure 121/45 L Pulse Oximetry 93 98 Oxygen Delivery Room Air 03/27/24 08:00 03/27/24 08:00 03/27/24 10:00 Temperature Pulse Rate 47 L 55 L Respiratory Rate Blood Pressure Pulse Oximetry Oxygen Delivery Room Air 03/27/24 11:51 03/27/24 12:00 03/27/24 13:51 Temperature 97.7 F Pulse Rate 63 67 52 L Respiratory Rate 18 18 Blood Pressure 124/67 Pulse Oximetry 100 Oxygen Delivery 03/27/24 14:07 Temperature Pulse Rate 54 L Respiratory Rate 18 Blood Pressure Pulse Oximetry Oxygen Delivery Intake/Output Intake/Output: Intake & Output 03/24/24 03/25/24 03/26/24 03/27/24 23:59 23:59 23:59 23:59 Intake Total 830 970 970 390 Output Total 300 300 900 200 Balance 530 670 70 190 Meds/Results Medications: Active Medications Generic Name Dose Route Start Last Admin Trade Name Freq PRN Reason Stop Dose Admin Acetaminophen 1,000 mg 03/10/24 10:04 03/25/24 16:55 Acetaminophen 500 Mg Tablet PO 1,000 mg Q6H PRN Administration Mild Pain (1-3) or Fever Hydrocodone Bitart/Acetaminophen 1 tab 03/08/24 17:21 03/27/24 00:49 Hydrocodone/Acetaminophen (*Crx) 5-325 Mg Tablet PO 04/05/24 23:59 1 tab Q6H PRN Administration Pain Rated 4-6 Acetylcysteine 200 mg 03/22/24 20:00 03/27/24 07:33 Acetylcysteine 20% Inhal Soln 800 Mg/4 Ml Vial INHALATION 200 mg Q12HRT IAN Administration Alprazolam 0.25 mg 03/08/24 17:21 03/20/24 21:42 Alprazolam (*Crx) 0.25 Mg Tablet PO 04/05/24 23:59 0.25 mg HS PRN Administration Anxiety Benzocaine 1 lozenge 03/10/24 18:17 03/16/24 08:17 Benzocaine/Menthol (*Bkc) 18 Ea Lozenge PO 1 lozenge PRN PRN Administration Sore Throat Cyanocobalamin 1,000 mcg 03/09/24 09:00 03/27/24 09:49 Cyanocobalamin 1,000 Mcg Tablet PO 1,000 mcg DAILY IAN Administration Cyclobenzaprine HCl 5 mg 03/19/24 14:03 03/26/24 22:28 Cyclobenzaprine Hcl 5 Mg Tablet PO 5 mg Q8H PRN Administration Muscle Spasm Diclofenac Sodium 1 applic 03/10/24 10:04 03/27/24 00:50 Diclofenac Sodium 1% 100 Gm Gel (*Bkc) TOPICAL 1 applic QID PRN Administration joint pain Diclofenac Sodium 1 applic 03/19/24 17:00 03/27/24 12:22 Diclofenac Sodium 1% 100 Gm Gel (*Bkc) TOPICAL 1 applic QID IAN Administration Furosemide 20 mg 03/16/24 09:00 03/27/24 09:49 Furosemide 20 Mg Tablet PO 20 mg DAILY IAN Administration Gabapentin 300 mg 03/08/24 21:00 03/27/24 09:49 Gabapentin 300 Mg Capsule PO 300 mg Q12HR IAN Administration Guaifenesin 1,200 mg 03/13/24 12:50 03/27/24 09:49 Guaifenesin 12 Hr 600 Mg Tabcr PO 1,200 mg Q12HR IAN Administration Guaifenesin/Dextromethorphan 10 ml 03/11/24 23:14 03/14/24 07:53 Guaifenesin/Dextromethorphan 10 Ml Udc PO 10 ml Q4H PRN Administration Cough Hydromorphone HCl 0.2 mg 03/21/24 11:31 03/21/24 11:54 Hydromorphone Hcl Inj (*Crx) 1 Mg/Ml Syr IV PUSH 0.2 mg Q6H PRN Administration Pain Rated 7-10 Levalbuterol HCl 1.25 mg 03/22/24 14:00 03/27/24 13:50 Levalbuterol Neb 1.25 Mg/3 Ml INHALATION 1.25 mg Q6HRT IAN Administration Melatonin 5 mg 03/15/24 21:00 03/26/24 22:15 Melatonin 5 Mg Tablet PO 5 mg HS IAN Administration Methimazole 5 mg 03/09/24 09:00 03/27/24 09:49 Methimazole 5 Mg Tab PO 5 mg DAILY IAN Administration Cinacalcet 15 Mg 0 each 03/10/24 09:00 03/27/24 09:50 Tablet PO 04/09/24 08:59 15 each DAILY IAN Administration Pantoprazole Sodium 40 mg 03/09/24 09:00 03/27/24 09:49 Pantoprazole 40 Mg Tablet PO 40 mg QAM IAN Administration Polyethylene Glycol 17 gm 03/22/24 09:00 03/27/24 09:49 Polyethylene Glycol 3350 17 Gm Powd.Pack PO Not Given QAM IAN Potassium Chloride 10 meq 03/08/24 21:00 03/26/24 22:15 Potassium Chloride 10 Meq Er Tablet PO 10 meq HS IAN Administration Simvastatin 10 mg 03/08/24 21:00 03/26/24 22:15 Simvastatin 10 Mg Tablet PO 10 mg HS IAN Administration Sotalol HCl 40 mg 03/27/24 14:00 Sotalol Hcl 40 Mg Tablet PO DAILY IAN Venlafaxine HCl 150 mg 03/09/24 09:00 03/27/24 09:49 Venlafaxine Hcl Xr 75 Mg Cap.Er.24h PO 150 mg DAILY IAN Administration Vitamin D 1,000 units 03/09/24 09:00 03/27/24 09:49 Cholecalciferol 1,000 Units Tablet PO 1,000 units DAILY IAN Administration Warfarin Sodium 9 mg 03/11/24 17:00 03/13/24 17:40 Warfarin (*Pbkc) 3 Mg Tablet PO 9 mg DAILY@1700 IAN Administration Warfarin Sodium 6 mg 03/22/24 17:00 03/26/24 16:31 Warfarin (*Pbkc) 3 Mg Tablet PO 6 mg DAILY@1700 IAN Administration Radiology Results: ITS Impressions Chest/Abdomen/Pelvis CT 03/21/24 12:36 IMPRESSION: CHEST: 1. No acute cardiopulmonary pathology. 2. Compression fracture of T6. MRI evaluation advised. ABDOMEN/PELVIS: 1. Hematoma in the left anterior abdominal wall. 2. Constipation. Lexiscan Stress Test 03/22/24 12:28 IMPRESSION: 1. No definite ischemia or infarct. 2. Normal left ventricular ejection fraction measuring 56%. Lumbar Spine X-Ray 03/23/24 13:40 IMPRESSION: 1. Mild lumbar spondylosis. 2. Lumbar dextroscoliosis. Cervical Spine CT 03/24/24 15:01 IMPRESSION: 1. Moderate cervical spondylosis, stable from 11/13/2020. 2. Cervicothoracic levoscoliosis. Chest X-Ray 03/26/24 06:15 IMPRESSION: 1. Cardiomegaly. Labs Labs: Laboratory Results - last 24 hr 03/27/24 03/27/24 04:16 10:32 WBC 9.5 RBC 2.57 L Hgb 8.4 L Hct 26.7 L MCV 103.9 H MCH 32.7 MCHC 31.5 L RDW 13.9 Plt Count 348 MPV 12.2 H PT 32.2 H INR 3.0 Sodium 133 L Potassium 3.7 Chloride 99 Carbon Dioxide 31 H Anion Gap 3 L BUN 17 Creatinine 1.16 H Estim Creat Clear Calc 37 Estimated GFR 45 L Glucose 72 Calcium 9.2 Total Bilirubin 0.7 AST 43 H ALT 36 H Alkaline Phosphatase 75 Total Protein 6.0 L Albumin 2.8 L Influenza A (RT-PCR) Negative Influenza B (RT-PCR) Negative RSV (RT-PCR) Negative SARS-CoV-2 RNA (RT-PCR) Negative Quality VTE Prophylaxis VTE prophylaxis: pharmacologic ordered Hospitalist MIPS Advance Care Plan I have confirmed that the patient's Advanced Care Plan is present, code status is documented, or surrogate decision maker is listed in patient medical record.: Yes Medication Reconciliation I have utilized all available resources to obtain, update and review the patients current medications (includes all prescriptions, OTC, herbals, cannabis, and nutritional supplements).: Yes
[2024-03-27] MEDS: ACETAMINOPHEN 500 MG TABLET 1000 MG PO (17:05)
[2024-03-27] MEDS: WARFARIN (*PBKC) 5 MG TABLET PO (17:05)
[2024-03-27] MEDS: SIMVASTATIN 10 MG TABLET PO (22:15)
[2024-03-27] MEDS: POTASSIUM CHLORIDE 10 MEQ ER TABLET PO (22:15)
[2024-03-27] MEDS: MELATONIN 5 MG TABLET PO (22:16)
[2024-03-28] VITALS (29 sets, daily range): BP systolic 112–129; BP diastolic 38–58; PULSE 51–87; RESP 16–24; TEMP 36.8–38.8; O2SAT 87–97
[2024-03-28] MEDS: LEVALBUTEROL NEB 1.25 MG/3 ML INHALATION ×4 (02:12→20:19)
[2024-03-28] MEDS: HYDROcodone/acetaminophen (*CRX) 5-325 MG TABLET 1 TAB PO (04:49)
[2024-03-28 05:35] LABS: INR 2.9; Prothrombin Time 31.2 Seconds (11.1-14.7)
[2024-03-28] MEDS: ACETYLCYSTEINE 20% INHAL SOLN 800 MG/4 ML VIAL 200 MG INHALATION ×2 (06:54→20:20)
--- NOTE | 2024-03-28 08:00 | PM.PNCARD ---
Progress Note: A&P Assessment and Plan (1) Systolic dysfunction: Code(s): I51.9 - Heart disease, unspecified Status: Acute Assessment and Plan: 03/11/24 Moderate with EF 35-40% and was 45%, mild RVE, mechanical AV, mild AI, mod MR/TR. Euvolemic on Lasix. 03/22/24 Lexiscan myoview: Negative for ischemia. (2) Mechanical heart valve present: Code(s): Z95.2 - Presence of prosthetic heart valve Status: Acute Assessment and Plan: On Warfarin normally to keep INR 2.5-3.0 and managed by her PCP. Had anterior abdominal hematoma from Lovenox. Stopped Lovenox. (3) Atrial fibrillation: Code(s): I48.91 - Unspecified atrial fibrillation Status: Acute Assessment and Plan: Controlled now, but rate fluctuates here up to 160's bpm which could be due to volume depletion/anemia/pain. Normally she is not very fast on low dose Metoprolol 12.5 mg daily. Normally on Warfarin as per treatment for mechanical AVR. Decrease Metoprolol 25 mg TID. Started 03/25/24 Sotalol to keep her in sinus rhythm. Normal controlled heart on Sotalol 40 mg daily. (4) Hyperlipidemia: Qualifiers: Hyperlipidemia type: mixed hyperlipidemia Qualified Code(s): E78.2 - Mixed hyperlipidemia Code(s): E78.5 - Hyperlipidemia, unspecified Status: Acute Assessment and Plan: On Simvastatin. (5) HTN (hypertension): Qualifiers: Hypertension type: primary hypertension Qualified Code(s): I10 - Essential (primary) hypertension Code(s): I10 - Essential (primary) hypertension Status: Acute Assessment and Plan: Stable. (6) LBBB (left bundle branch block): Code(s): I44.7 - Left bundle-branch block, unspecified Status: Acute (7) Elevated troponin: Code(s): R77.8 - Other specified abnormalities of plasma proteins Status: Inactive Assessment and Plan: Flat and slightly elevated at .055. Could be related to demand ischemia from intermittent rapid HR/CKD/anemia. Subjective Date/time seen: 03/28/24 08:00 Interval history: No chest pain or sob. Has a persistent cough. Exam Const: General: cooperative, healthy appearing and comfortable Orientation/consciousness: oriented to person, oriented to place and oriented to time Resp: Auscultation: clear to auscultation bilaterally, no crackles, no rales, no rhonchi and no wheezes Cardio: Rate: regular rate Rhythm: abnormal rhythm Heart sounds: Clicking heart sound present (S2) and no murmurs Peripheral pulses: dorsalis pedis present Neuro: General: oriented to person, oriented to place and oriented to time Extrem: Right lower extremity: no edema Left lower extremity: no edema Objective Data Vital Signs Vital Signs: Vital Signs - 24 hr 03/27/24 10:00 03/27/24 11:51 03/27/24 12:00 Temperature 97.7 F Pulse Rate 55 L 63 67 Respiratory Rate 18 Blood Pressure 124/67 Pulse Oximetry 100 Oxygen Delivery 03/27/24 12:00 03/27/24 13:51 03/27/24 14:00 Temperature Pulse Rate 52 L 60 Respiratory Rate 18 Blood Pressure Pulse Oximetry Oxygen Delivery Room Air 03/27/24 14:07 03/27/24 16:00 03/27/24 16:00 Temperature 97.9 F Pulse Rate 54 L 65 Respiratory Rate 18 18 Blood Pressure 131/46 L Pulse Oximetry 100 Oxygen Delivery Room Air 03/27/24 16:00 03/27/24 16:32 03/27/24 18:00 Temperature Pulse Rate 66 44 L 64 Respiratory Rate Blood Pressure Pulse Oximetry Oxygen Delivery 03/27/24 19:02 03/27/24 20:00 03/27/24 20:53 Temperature 98.0 F Pulse Rate 64 69 70 Respiratory Rate 18 18 Blood Pressure 130/38 L Pulse Oximetry 100 Oxygen Delivery 03/27/24 21:00 03/27/24 21:35 03/27/24 22:00 Temperature Pulse Rate 73 63 Respiratory Rate 18 Blood Pressure Pulse Oximetry 92 Oxygen Delivery Room Air 03/27/24 22:20 03/28/24 00:00 03/28/24 00:00 Temperature Pulse Rate 71 51 L Respiratory Rate 16 Blood Pressure Pulse Oximetry 91 Oxygen Delivery Room Air Room Air 03/28/24 00:00 03/28/24 02:00 03/28/24 02:13 Temperature 98.7 F Pulse Rate 71 59 L 63 Respiratory Rate 16 18 Blood Pressure 118/58 L Pulse Oximetry 91 Oxygen Delivery 03/28/24 02:21 03/28/24 04:00 03/28/24 06:00 Temperature Pulse Rate 68 76 73 Respiratory Rate 18 Blood Pressure Pulse Oximetry Oxygen Delivery 03/28/24 07:59 Temperature 99.6 F Pulse Rate 77 Respiratory Rate 24 H Blood Pressure 113/38 L Pulse Oximetry Oxygen Delivery Intake/Output Intake/Output: Intake & Output 03/25/24 03/26/24 03/27/24 03/28/24 23:59 23:59 23:59 23:59 Intake Total 970 970 970 500 Output Total 300 900 650 150 Balance 670 70 320 350 Meds/Results Medications: Active Medications Generic Name Dose Route Start Last Admin Trade Name Freq PRN Reason Stop Dose Admin Acetaminophen 1,000 mg 03/10/24 10:04 03/27/24 17:05 Acetaminophen 500 Mg Tablet PO 1,000 mg Q6H PRN Administration Mild Pain (1-3) or Fever Hydrocodone Bitart/Acetaminophen 1 tab 03/08/24 17:21 03/28/24 04:49 Hydrocodone/Acetaminophen (*Crx) 5-325 Mg Tablet PO 04/05/24 23:59 1 tab Q6H PRN Administration Pain Rated 4-6 Acetylcysteine 200 mg 03/22/24 20:00 03/28/24 06:54 Acetylcysteine 20% Inhal Soln 800 Mg/4 Ml Vial INHALATION 200 mg Q12HRT IAN Administration Alprazolam 0.25 mg 03/08/24 17:21 03/20/24 21:42 Alprazolam (*Crx) 0.25 Mg Tablet PO 04/05/24 23:59 0.25 mg HS PRN Administration Anxiety Benzocaine 1 lozenge 03/10/24 18:17 03/16/24 08:17 Benzocaine/Menthol (*Bkc) 18 Ea Lozenge PO 1 lozenge PRN PRN Administration Sore Throat Cyanocobalamin 1,000 mcg 03/09/24 09:00 03/27/24 09:49 Cyanocobalamin 1,000 Mcg Tablet PO 1,000 mcg DAILY IAN Administration Cyclobenzaprine HCl 5 mg 03/19/24 14:03 03/26/24 22:28 Cyclobenzaprine Hcl 5 Mg Tablet PO 5 mg Q8H PRN Administration Muscle Spasm Diclofenac Sodium 1 applic 03/10/24 10:04 03/27/24 00:50 Diclofenac Sodium 1% 100 Gm Gel (*Bkc) TOPICAL 1 applic QID PRN Administration joint pain Diclofenac Sodium 1 applic 03/19/24 17:00 03/27/24 22:16 Diclofenac Sodium 1% 100 Gm Gel (*Bkc) TOPICAL 1 applic QID IAN Administration Furosemide 20 mg 03/16/24 09:00 03/27/24 09:49 Furosemide 20 Mg Tablet PO 20 mg DAILY IAN Administration Gabapentin 300 mg 03/08/24 21:00 03/27/24 22:15 Gabapentin 300 Mg Capsule PO 300 mg Q12HR IAN Administration Guaifenesin 1,200 mg 03/13/24 12:50 03/27/24 22:15 Guaifenesin 12 Hr 600 Mg Tabcr PO 1,200 mg Q12HR IAN Administration Guaifenesin/Dextromethorphan 10 ml 03/11/24 23:14 03/14/24 07:53 Guaifenesin/Dextromethorphan 10 Ml Udc PO 10 ml Q4H PRN Administration Cough Hydromorphone HCl 0.2 mg 03/21/24 11:31 03/21/24 11:54 Hydromorphone Hcl Inj (*Crx) 1 Mg/Ml Syr IV PUSH 0.2 mg Q6H PRN Administration Pain Rated 7-10 Levalbuterol HCl 1.25 mg 03/22/24 14:00 03/28/24 06:54 Levalbuterol Neb 1.25 Mg/3 Ml INHALATION 1.25 mg Q6HRT IAN Administration Melatonin 5 mg 03/15/24 21:00 03/27/24 22:16 Melatonin 5 Mg Tablet PO 5 mg HS IAN Administration Methimazole 5 mg 03/09/24 09:00 03/27/24 09:49 Methimazole 5 Mg Tab PO 5 mg DAILY IAN Administration Cinacalcet 15 Mg 0 each 03/10/24 09:00 03/27/24 09:50 Tablet PO 04/09/24 08:59 15 each DAILY IAN Administration Pantoprazole Sodium 40 mg 03/09/24 09:00 03/27/24 09:49 Pantoprazole 40 Mg Tablet PO 40 mg QAM IAN Administration Polyethylene Glycol 17 gm 03/22/24 09:00 03/27/24 09:49 Polyethylene Glycol 3350 17 Gm Powd.Pack PO Not Given QAM IAN Potassium Chloride 10 meq 03/08/24 21:00 03/27/24 22:15 Potassium Chloride 10 Meq Er Tablet PO 10 meq HS [facility] Administration Simvastatin 10 mg 03/08/24 21:00 03/27/24 22:15 Simvastatin 10 Mg Tablet PO 10 mg HS IAN Administration Sotalol HCl 40 mg 03/27/24 14:00 03/27/24 16:32 Sotalol Hcl 40 Mg Tablet PO Not Given DAILY [facility] Venlafaxine HCl 150 mg 03/09/24 09:00 03/27/24 09:49 Venlafaxine Hcl Xr 75 Mg Cap.Er.24h PO 150 mg DAILY [facility] Administration Vitamin D 1,000 units 03/09/24 09:00 03/27/24 09:49 Cholecalciferol 1,000 Units Tablet PO 1,000 units DAILY IAN Administration Warfarin Sodium 9 mg 03/11/24 17:00 03/13/24 17:40 Warfarin (*Pbkc) 3 Mg Tablet PO 9 mg DAILY@1700 [facility] Administration Warfarin Sodium 6 mg 03/22/24 17:00 03/27/24 16:41 Warfarin (*Pbkc) 3 Mg Tablet PO Not Given DAILY@1700 [facility] Radiology Results: ITS Impressions Chest/Abdomen/Pelvis CT 03/21/24 12:36 IMPRESSION: CHEST: 1. No acute cardiopulmonary pathology. 2. Compression fracture of T6. MRI evaluation advised. ABDOMEN/PELVIS: 1. Hematoma in the left anterior abdominal wall. 2. Constipation. Lexiscan Stress Test 03/22/24 12:28 IMPRESSION: 1. No definite ischemia or infarct. 2. Normal left ventricular ejection fraction measuring 56%. Lumbar Spine X-Ray 03/23/24 13:40 IMPRESSION: 1. Mild lumbar spondylosis. 2. Lumbar dextroscoliosis. Cervical Spine CT 03/24/24 15:01 IMPRESSION: 1. Moderate cervical spondylosis, stable from 11/13/2020. 2. Cervicothoracic levoscoliosis. Chest X-Ray 03/26/24 06:15 IMPRESSION: 1. Cardiomegaly. Labs Labs: Laboratory Results - last 24 hr 03/27/24 03/28/24 10:32 04:37 PT 31.2 H INR 2.9 Influenza A (RT-PCR) Negative Influenza B (RT-PCR) Negative RSV (RT-PCR) Negative SARS-CoV-2 RNA (RT-PCR) Negative
[2024-03-28] MEDS: methiMAzole 5 MG TAB PO (09:29)
[2024-03-28] MEDS: GABAPENTIN 300 MG CAPSULE PO ×2 (09:29→20:44)
[2024-03-28] MEDS: FUROSEMIDE 20 MG TABLET PO (09:29)
[2024-03-28] MEDS: CHOLECALCIFEROL 1,000 UNITS TABLET 1000 UNITS PO (09:29)
[2024-03-28] MEDS: VENLAFAXINE HCL XR 75 MG CAP.ER.24H 150 MG PO (09:30)
[2024-03-28] MEDS: SOTALOL HCL 40 MG TABLET PO (09:30)
[2024-03-28] MEDS: PANTOPRAZOLE 40 MG TABLET PO (09:30)
[2024-03-28] MEDS: guaiFENesin 12 HR 600 MG TABCR 1200 MG PO ×2 (09:30→20:44)
[2024-03-28] MEDS: CYANOCOBALAMIN 1,000 MCG TABLET 1000 MCG PO (09:30)
[2024-03-28] MEDS: DICLOFENAC SODIUM 1% 100 GM GEL (*BKC) 1 APPLIC TOPICAL ×3 (09:32→16:53)
[2024-03-28] MEDS: FUROSEMIDE INJ 40 MG/4 ML VIAL IV PUSH (09:32)
[2024-03-28] MEDS: CINACALCET PO (09:33)
[2024-03-28] MEDS: DEXTROMETHORPHAN POLISTIREX 60 MG/10 ML SYRINGE PO ×2 (09:34→21:20)
--- NOTE | 2024-03-28 11:30 | ECG_ITS ---
Test Date: 2024-03-28 11:36:53 Measurements Intervals [place] Rate: 69 P: 0 NE: 0 QRS: -37 QRSD: 157 T: 102 QT: 446 QTc: 480 Interpretive Statements ATRIAL FIBRILLATION LEFT AXIS DEVIATION [QRS AXIS < -30] LEFT BUNDLE BRANCH BLOCK [120+ ms QRS DURATION, 80+ ms Q/S IN V1/V2, 85+ ms R IN I/aVL/V5/V6] Compared to ECG 03/27/2024 00:45:21 no changes Electronically Signed On 03-28-2024 18:03:04 [employer] by Paxton Villela M.D.
--- NOTE | 2024-03-28 15:07 | P.PNIM_ITS ---
Progress Note: A&P Assessment and Plan (1) Mechanical heart valve present: Code(s): Z95.2 - Presence of prosthetic heart valve Status: Acute Assessment and Plan: 03/21 : I assumed care today. Patient INR is 3.1. Patient target INR is 2.5-3. Currently warfarin is on hold. Patient is also on Lovenox 80 mg b.i.d.. Since patient is already over therapeutic INR and in spite of receiving Lovenox makes her over anticoagulated. So today discontinued Lovenox. Given her warfarin 5 mg x 1 and possibly restart her home warfarin dosage 9mg from tomorrow. I performed CT chest/abdomen/pelvis which shows hematoma in the left anterior abdominal wall 3 x 2.5 cm. Discussed the goal of care with the nursing team. Patient wants some time to decide on her code status. 03/22: Surgery evaluated the patient under report overlying skin appears intact and there is no signs of infection. No indication for surgical intervention at this time. Patient has some cough and congestion. Patient is already on Mucinex, cornet. Ordered Xopenex around the clock for 2 days and Mucomyst b.i.d.. Discussed with the pharmacist and resume her home dose 6 mg not the 9 mg from today. Patient underwent a Lexiscan today 03/23: INR 3.3. Holding warfarin home dose is 6 mg. Hematoma of the abdominal wall has been evaluated by the surgery and currently does not need surgical intervention. Patient underwent Lexiscan yesterday which shows: 1. No definite ischemia or infarct. 2. Normal left ventricular ejection fraction measuring 56%. 03/24: Today patient is complaining about neck pain. Ordered Cervical CT. INR is 3.1, holding warfarin. Lexiscan is negative.In regards to hematoma no indication for surgical intervention at this time. 03/25: Today morning rapid response was called due to increased heart rate in 170s/180s. During my evaluation patient heart rate was already down to 110s/120s. Patient was evaluated by the Cardiology at the time who who started her on sotalol 80 mg p.o. b.i.d.. Patient is already on metoprolol 25 mg p.o. t.i.d.. Patient INR is 2.5 and restarted her home warfarin does 6 mg. Possible discharge to SNF after stabilizing her heart rate. 03/26: Patient pain is improving. Chest is congested but no evidence of PNA. Ordered extra dose of Lasix 40 mg IV x 1. Patient started on Sotalol 80mg PO BID.INR 2.6, continue her home dose 6mg Warfarin. 03/27: INR 3, continue home dose Warfarin 6mg PO QD.Advised aggressive incentive spirometry and Cornet valve. Decreased her Sotalol dose to 40mg PO QD from Sotalol 80mg PO BID 03/28:Patient still congested. Given extra dose of Lasix 40mg IV x 1.Added Dextromethorphan. Other than the congestion she feels better. Hematoma is improving. INR is 2.9. Continue her home dose warfarin 6 mg PO QD. Patient had some dose adjustments of Sotalol and currently takes 40mg PO QD. Patient is cleared from Cardiology standpoint of view for discharge. Pending penitentiary approval Audible mechanical heart valve. INR subtherapeutic for several days, 1.5, 1.4, 1 today. Next of Kin, PCP manages INR and warfarin doses for her. Next of Kin, Anshul coordinates with the office. The last 2 weeks before admission she was taking 6 mg thursday-, 5mg thursday, sat, sun. Generally has INR checks ever 2 weeks Goal INR 2.5-3.5 with her mechanical valve. Izzy reports 9mg daily is a higher dose than she has needed previously --Started a heparin drip with a bolus for subtherapeutic INR --Follow CBC since trending down but may be dilutional. Stable overnight --Warfarin 8mg<9mg daily --Daily INR, closer to goal --Coordinate INR checks & follow up plan with PCP's office, Dr. Sanjeev Rosenberg 03/07 1.5 03/08 Warfarin 6mg 03/09 1.4 Warfarin 6mg 03/10 1 Warfarin 8mg 03/11 1.7 Warfarin 9mg 03/12 2.1 & 2.2 Warfarin 9mg (lab said it was likely run twice for a precision check) 03/14: * 3.9 - Will hold tonight's dose. * Continue to trend daily INR's * Therapeutically dosed Lovenox is discontinued at this time as pt has been receiving it as a bridge. 03/15 * INR 4.1 * Continue to hold Warfarin * Continue to trend daily INR * Reports passing a small amount of bright red blood today after bowel movement * Continue to monitor. * Patient on Augmentin which can make therapeutic trend challenging 03/16 * INR 3.9 * Continue to hold Warfarin 03/17 * INR 3.3 * Continue to hold Warfarin 03/18 * INR 3.4 * Continue to hold Warfarin for now 03/19 * INR 3.5 * Continue to hold warfarin 03/20 * INR 3.2 today * Continue to hold Warfarin 03/21 INR 3.1 Discontinue Lovenox due to over anticoagulation Supratherapeutic INR 3.1 Hold warfarin Evidence of hematoma in the left anterior abdominal wall 3 x 2.5 cm (2) Palpitations: Code(s): R00.2 - Palpitations Status: Acute Assessment and Plan: - Likely due to PAF with RVR. - Better after hydration and resuming home meds. (3) Acute kidney injury: Code(s): N17.9 - Acute kidney failure, unspecified Status: Acute Assessment and Plan: Ddx pre-renal vs poor PO intake vs meds vs other. s/p 500 bolus with tachycardia --Resumed lasix --Creatinine stable (4) HTN (hypertension): Qualifiers: Hypertension type: primary hypertension Qualified Code(s): I10 - Essential (primary) hypertension Code(s): I10 - Essential (primary) hypertension Status: Acute Assessment and Plan: - Appears well controlled. - Continue metoprolol, changed from XL to IR for titration - Follow VS (5) Hyperlipidemia: Qualifiers: Hyperlipidemia type: mixed hyperlipidemia Qualified Code(s): E78.2 - Mixed hyperlipidemia Code(s): E78.5 - Hyperlipidemia, unspecified Status: Acute Assessment and Plan: * continue simvastatin (6) Shortness of breath: Code(s): R06.02 - Shortness of breath Status: Acute Assessment and Plan: Mildly tachypneic. Not obviously overloaded on exam, likely 2/2 pneumonia --Started heparin drip, if not resolved consider a CT r/o PE, but is on warfarin chronically for mechanical heart valve --Treatment of pneumonia and heart failure, rate control afib --PEP therapy for airway clearance (7) Anemia: Code(s): D64.9 - Anemia, unspecified Status: Acute Assessment and Plan: Blood count trending down since admission but may be dilutional 14.2>11.1 Iron panel showing iron deficiency anemia, Total Iron and Tsat low. B12 636. LDH 245 --iron sucrose 300mg x3 doses --Follow CBC --If downtrending would need GI consult on chronic anticoagulation (8) Heart failure, diastolic, acute on chronic: Code(s): I50.33 - Acute on chronic diastolic (congestive) heart failure Status: Acute Assessment and Plan: 08/24/23 Echo: TDS. EF 45%, biatrial enlargement, suspect (YADIRA 1.4 cm2), mod MR, mild-mod TR. s/p 500ml fluid bolus, now back on IV lasix NT-proBNP 10,000 Resume lasix, 20mg IV daily & increase as able TTE 03/14/24: * Chronic in nature. * Appears euvolemic. * Continue Lasix 03/15/23: * Will increase to 40 mg IVP lasix today * Course bilaterally with peripheral swelling 03/16 * continue Lasix 03/17 * Transition to oral Lasix * Appears euvolemic 03/18 * Flipped into A fib with RVR today * Lungs sounding course * Will repeat CXR now * Last Echo on 03/11/24 shown LVEF of 3-40% 03/19 * Back in NSR * Continue telemetry monitoring * CXR was negative * proBNP elevated, however lung sounds are clear 03/20 * Flipped back into A fib RVR overnight * Repeat EKG showing new LBBB--Cardiology was notified. * Mild troponin bump--likely demand ischemia * Plan for Lexiscan stress test tomorrow to further evaluate 03/22: No significant finding in Lexiscan (9) Pneumonia: Code(s): J18.9 - Pneumonia, unspecified organism Status: Acute Assessment and Plan: Resolved. Hospital associated pneumonia. Chest x-ray showed possible RLL pneumonia. Has crackles on exam. Intermittent fevers. Resolved today after starting unasyn. On room air --Started Unasyn, change to augmentin if improving --If new oxygen requirements, broaden to Cefepime/Vanc/Flagyl --Also has a sore throat, checking strep culture. Chlorseptic drops & tylenol prn --Urine for strep pneumo --Follow up chest x-ray if new oxygen requirement or not resolving --Staph screen. Can broaden to Cefepime/Vanc if worsening --Sputum culture if able to collect. Would only use to guide treatment if not improving with current antibiotics 03/14/24: * Continue Unasyn. Could likely switch to oral Augmentin tomorrow. 03/15/24: * Unasyn changed to Augmentin 03/18/24 * Augmentin finished today (10) Atrial fibrillation with RVR: Code(s): I48.91 - Unspecified atrial fibrillation Status: Acute Assessment and Plan: Home metoprolol ER 25mg daily Resting HR 70s-90s, 100-130's with activity on 03/10. Rate controlled with increased dose of metoprolol and a 500ml fluid bolus - Change Metoprolol ER 25mg daily to metoprolol tartrate 12.5mg q6 and titrate. 5mg IV metoprolol --INR goal as noted for mechanical heart valve. INR can be affected by antibiotics --Cardiology consulted, appreciate recommendations 03/15/24: * Rate controlled in the 90's * Continue Metoprolol * D/C continuous tele * Hold Warfarin due to supratherapeutic INR 03/17 * Continue to hold Warfarin 03/18 * Went back into Afib RVR today * Continue to hold Warfarin due to supratherapeutic INR * Will increase Metoprolol to 25 mg q6h for better rate control * Continue tele * Cardiology reconsulted * repeating CXR 03/19 * In NSR now, continue Metoprolol 25 mg q6h * Continue tele for now * Cardiology following * CXR negative 03/20 * Flipped back into A fib RVR overnight * Repeat EKG showing new LBBB--Cardiology was notified. * Mild troponin bump--likely demand ischemia * Plan for Lexiscan stress test tomorrow to further evaluate 03/21 Metoprolol tartrate 50 mg p.o. t.i.d. Warfarin 5 mg p.o. q.d. 03/25: Today morning rapid response was called due to increased heart rate in 170s/180s. During my evaluation patient heart rate was already down to 110s/120s. Patient was evaluated by the Cardiology at the time who who started her on sotalol 80 mg p.o. b.i.d.. Patient is already on metoprolol 25 mg p.o. t.i.d.. 03/27: Continue Sotalol 40 mg PO QD. Subjective Date/time seen: 03/28/24 15:07 Interval history: Patient still congested. Given extra dose of Lasix 40mg IV x 1. Other than the congestion she feels better. Hematoma is improving. INR is 2.9. Continue her home dose warfarin 6 mg PO QD. Patient had some dose adjustments of Sotalol and currently takes 40mg PO QD. Patient is cleared from Cardiology standpoint of view for discharge. Pending penitentiary approval Review of Systems Review of Systems: All systems reviewed & are unremarkable except as noted in HPI and below Constitutional: Constitutional: Reports as per HPI and Reports no additional constitutional complaints Eyes: Eyes: Reports as per HPI and Reports no additional eye complaints ENT: Reports system reviewed and no additional complaints, except as documented and Reports as per HPI Cardiovascular: Cardiovascular: Reports as per HPI and Reports no additional cardiovascular complaints Respiratory: Respiratory: Reports as per HPI and Reports no additional respiratory complaints Gastrointestinal: Gastrointestinal: Reports as per HPI and Reports no additional gastrointestinal complaints Genitourinary: Genitourinary: Reports no additional female genitourinary complaints and Reports as per HPI Musculoskeletal: Musculoskeletal: Reports no additional musculoskeletal complaints and Reports as per HPI Integumentary/Breasts: Skin/Breast: Reports system reviewed and no additional complaints, except as docu and Reports as per HPI Neurologic: Reports system reviewed and no additional complaints, except as documented and Reports as per HPI Psychiatric: Psychiatric: Reports no additional psychiatric complaints and Reports as per HPI Exam Narrative: General: In no acute distress, well nourished Cardiac: Normal S1 and S2. NSR, No murmur, gallops or friction rubs, peripheral pulses intact. Respiratory: Lungs clear bilaterally , no adventitious lung sounds, currently on room air, raspy cough Gastrointestinal: soft, non-distended, non-tender, normoactive bowel sounds. : voiding without difficulty. Neuro: Alert and oriented x4 Objective Data Vital Signs Vital Signs: Vital Signs - 24 hr 03/27/24 16:00 03/27/24 16:00 03/27/24 16:00 Temperature 97.9 F Pulse Rate 65 66 Respiratory Rate 18 Blood Pressure 131/46 L Pulse Oximetry 100 Oxygen Delivery Room Air 03/27/24 16:32 03/27/24 18:00 03/27/24 19:02 Temperature 98.0 F Pulse Rate 44 L 64 64 Respiratory Rate 18 Blood Pressure 130/38 L Pulse Oximetry 100 Oxygen Delivery 03/27/24 20:00 03/27/24 20:53 03/27/24 21:00 Temperature Pulse Rate 69 70 73 Respiratory Rate 18 18 Blood Pressure Pulse Oximetry Oxygen Delivery 03/27/24 21:35 03/27/24 22:00 03/27/24 22:20 Temperature Pulse Rate 63 Respiratory Rate Blood Pressure Pulse Oximetry 92 Oxygen Delivery Room Air Room Air 03/28/24 00:00 03/28/24 00:00 03/28/24 00:00 Temperature 98.7 F Pulse Rate 71 51 L 71 Respiratory Rate 16 16 Blood Pressure 118/58 L Pulse Oximetry 91 91 Oxygen Delivery Room Air 03/28/24 02:00 03/28/24 02:13 03/28/24 02:21 Temperature Pulse Rate 59 L 63 68 Respiratory Rate 18 18 Blood Pressure Pulse Oximetry Oxygen Delivery 03/28/24 04:00 03/28/24 04:40 03/28/24 04:40 Temperature 99.4 F Pulse Rate 76 83 83 Respiratory Rate 24 H 24 H Blood Pressure 129/57 L Pulse Oximetry 96 96 Oxygen Delivery Room Air 03/28/24 06:00 03/28/24 06:50 03/28/24 06:50 Temperature Pulse Rate 73 78 78 Respiratory Rate 18 18 Blood Pressure Pulse Oximetry 93 Oxygen Delivery Room Air 03/28/24 07:00 03/28/24 07:59 03/28/24 08:00 Temperature 99.6 F Pulse Rate 77 77 69 Respiratory Rate 18 24 H Blood Pressure 113/38 L Pulse Oximetry Oxygen Delivery 03/28/24 09:30 03/28/24 10:00 03/28/24 11:58 Temperature 98.2 F Pulse Rate 73 76 67 Respiratory Rate 18 Blood Pressure 123/39 L Pulse Oximetry 96 Oxygen Delivery 03/28/24 12:00 03/28/24 14:00 Temperature Pulse Rate 63 69 Respiratory Rate Blood Pressure Pulse Oximetry Oxygen Delivery Intake/Output Intake/Output: Intake & Output 03/25/24 03/26/24 03/27/24 03/28/24 23:59 23:59 23:59 23:59 Intake Total 970 970 970 980 Output Total 300 900 650 150 Balance 670 70 320 830 Meds/Results Medications: Active Medications Generic Name Dose Route Start Last Admin Trade Name Freq PRN Reason Stop Dose Admin Acetaminophen 1,000 mg 03/10/24 10:04 03/27/24 17:05 Acetaminophen 500 Mg Tablet PO 1,000 mg Q6H PRN Administration Mild Pain (1-3) or Fever Hydrocodone Bitart/Acetaminophen 1 tab 03/08/24 17:21 03/28/24 04:49 Hydrocodone/Acetaminophen (*Crx) 5-325 Mg Tablet PO 04/05/24 23:59 1 tab Q6H PRN Administration Pain Rated 4-6 Acetylcysteine 200 mg 03/22/24 20:00 03/28/24 06:54 Acetylcysteine 20% Inhal Soln 800 Mg/4 Ml Vial INHALATION 200 mg Q12HRT IAN Administration Alprazolam 0.25 mg 03/08/24 17:21 03/20/24 21:42 Alprazolam (*Crx) 0.25 Mg Tablet PO 04/05/24 23:59 0.25 mg HS PRN Administration Anxiety Benzocaine 1 lozenge 03/10/24 18:17 03/16/24 08:17 Benzocaine/Menthol (*Bkc) 18 Ea Lozenge PO 1 lozenge PRN PRN Administration Sore Throat Cyanocobalamin 1,000 mcg 03/09/24 09:00 03/28/24 09:30 Cyanocobalamin 1,000 Mcg Tablet PO 1,000 mcg DAILY IAN Administration Cyclobenzaprine HCl 5 mg 03/19/24 14:03 03/26/24 22:28 Cyclobenzaprine Hcl 5 Mg Tablet PO 5 mg Q8H PRN Administration Muscle Spasm Dextromethorphan Polistirix 60 mg 03/28/24 09:00 03/28/24 09:34 Dextromethorphan Polistirex 60 Mg/10 Ml Syringe PO 60 mg Q12HR IAN Administration Diclofenac Sodium 1 applic 03/10/24 10:04 03/27/24 00:50 Diclofenac Sodium 1% 100 Gm Gel (*Bkc) TOPICAL 1 applic QID PRN Administration joint pain Diclofenac Sodium 1 applic 03/19/24 17:00 03/28/24 11:54 Diclofenac Sodium 1% 100 Gm Gel (*Bkc) TOPICAL 1 applic QID IAN Administration Furosemide 20 mg 03/16/24 09:00 03/28/24 09:29 Furosemide 20 Mg Tablet PO 20 mg DAILY IAN Administration Gabapentin 300 mg 03/08/24 21:00 03/28/24 09:29 Gabapentin 300 Mg Capsule PO 300 mg Q12HR IAN Administration Guaifenesin 1,200 mg 03/13/24 12:50 03/28/24 09:30 Guaifenesin 12 Hr 600 Mg Tabcr PO 1,200 mg Q12HR IAN Administration Hydromorphone HCl 0.2 mg 03/21/24 11:31 03/21/24 11:54 Hydromorphone Hcl Inj (*Crx) 1 Mg/Ml Syr IV PUSH 0.2 mg Q6H PRN Administration Pain Rated 7-10 Levalbuterol HCl 1.25 mg 03/22/24 14:00 03/28/24 14:33 Levalbuterol Neb 1.25 Mg/3 Ml INHALATION 1.25 mg Q6HRT IAN Administration Melatonin 5 mg 03/15/24 21:00 03/27/24 22:16 Melatonin 5 Mg Tablet PO 5 mg HS IAN Administration Methimazole 5 mg 03/09/24 09:00 03/28/24 09:29 Methimazole 5 Mg Tab PO 5 mg DAILY IAN Administration Cinacalcet 15 Mg 0 each 03/10/24 09:00 03/28/24 09:33 Tablet PO 04/09/24 08:59 15 each DAILY IAN Administration Pantoprazole Sodium 40 mg 03/09/24 09:00 03/28/24 09:30 Pantoprazole 40 Mg Tablet PO 40 mg QAM IAN Administration Polyethylene Glycol 17 gm 03/22/24 09:00 03/28/24 09:29 Polyethylene Glycol 3350 17 Gm Powd.Pack PO Not Given QAM IAN Potassium Chloride 10 meq 03/08/24 21:00 03/27/24 22:15 Potassium Chloride 10 Meq Er Tablet PO 10 meq HS IAN Administration Simvastatin 10 mg 03/08/24 21:00 03/27/24 22:15 Simvastatin 10 Mg Tablet PO 10 mg HS IAN Administration Sotalol HCl 40 mg 03/27/24 14:00 03/28/24 09:30 Sotalol Hcl 40 Mg Tablet PO 40 mg DAILY IAN Administration Venlafaxine HCl 150 mg 03/09/24 09:00 03/28/24 09:30 Venlafaxine Hcl Xr 75 Mg Cap.Er.24h PO 150 mg DAILY [facility] Administration Vitamin D 1,000 units 03/09/24 09:00 03/28/24 09:29 Cholecalciferol 1,000 Units Tablet PO 1,000 units DAILY IAN Administration Warfarin Sodium 9 mg 03/11/24 17:00 03/13/24 17:40 Warfarin (*Pbkc) 3 Mg Tablet PO 9 mg DAILY@1700 [facility] Administration Warfarin Sodium 6 mg 03/22/24 17:00 03/27/24 16:41 Warfarin (*Pbkc) 3 Mg Tablet PO Not Given DAILY@1700 [facility] Radiology Results: ITS Impressions Chest/Abdomen/Pelvis CT 03/21/24 12:36 IMPRESSION: CHEST: 1. No acute cardiopulmonary pathology. 2. Compression fracture of T6. MRI evaluation advised. ABDOMEN/PELVIS: 1. Hematoma in the left anterior abdominal wall. 2. Constipation. Lexiscan Stress Test 03/22/24 12:28 IMPRESSION: 1. No definite ischemia or infarct. 2. Normal left ventricular ejection fraction measuring 56%. Lumbar Spine X-Ray 03/23/24 13:40 IMPRESSION: 1. Mild lumbar spondylosis. 2. Lumbar dextroscoliosis. Cervical Spine CT 03/24/24 15:01 IMPRESSION: 1. Moderate cervical spondylosis, stable from 11/13/2020. 2. Cervicothoracic levoscoliosis. Chest X-Ray 03/26/24 06:15 IMPRESSION: 1. Cardiomegaly. Labs Labs: Laboratory Results - last 24 hr 03/28/24 04:37 PT 31.2 H INR 2.9 Quality VTE Prophylaxis VTE prophylaxis: pharmacologic ordered Hospitalist [facility] Advance Care Plan I have confirmed that the patient's Advanced Care Plan is present, code status is documented, or surrogate decision maker is listed in patient medical record.: Yes Medication Reconciliation I have utilized all available resources to obtain, update and review the patients current medications (includes all prescriptions, OTC, herbals, cannabis, and nutritional supplements).: Yes
--- NOTE | 2024-03-28 15:11 | PCPTNOTE ---
On 03/28/24, the student, Jimbo Gomez, provided care and completed [facility] documentation on this patient. I have reviewed the student's documentation and agree with the findings.
[2024-03-28] MEDS: WARFARIN (*PBKC) 3 MG TABLET 6 MG PO (16:53)
[2024-03-28] MEDS: MELATONIN 5 MG TABLET PO (20:44)
[2024-03-28] MEDS: POTASSIUM CHLORIDE 10 MEQ ER TABLET PO (20:44)
[2024-03-28] MEDS: SIMVASTATIN 10 MG TABLET PO (20:44)
[2024-03-28] MEDS: ACETAMINOPHEN 500 MG TABLET 1000 MG PO (20:44)
[2024-03-29] VITALS (26 sets, daily range): BP systolic 108–143; BP diastolic 40–89; PULSE 56–86; RESP 20–24; TEMP 36.5–38.2; O2SAT 92–99
[2024-03-29] MEDS: LEVALBUTEROL NEB 1.25 MG/3 ML INHALATION ×4 (01:17→20:05)
[2024-03-29 05:50] LABS: Hematocrit 28.6 % (37.0-47.0); Hemoglobin 8.9 g/dL (12.0-15.0); Mean Corpuscular HGB Conc 31.1 g/dl (32-36); Mean Corpuscular Hemoglobin 33.1 pg (26-34); Mean Corpuscular Volume 106.3 fl (80-100); Mean Platelet Volume 12.7 fl (7.4-10.4); Platelet Count Result 368 k/mm3 (150-375); Red Blood Count 2.69 M/mm3 (4.2-5.4); Red Cell Distribution Width 14.3 % (11.5-14.5); White Blood Count 18.8 K/mm3 (4.5-10.0)
[2024-03-29 06:18] LABS: Alanine Aminotransferase 25 U/L (6-35); Albumin Level 3.1 g/dL (3.5-5.1); Alkaline Phosphatase 72 U/L (38-126); Anion Gap 4 mmol/L (4-12); Aspartate Amino Transferase 36 U/L (14-36); Bilirubin,Total 0.9 mg/dL (0.2-1.3); Blood Urea Nitrogen 22 mg/dL (7-17); Calcium 9.2 mg/dL (8.4-10.2); Carbon Dioxide 32 mmol/L (22-30); Chloride 99 mmol/L (98-107); Estimated CRCL calculation 38 ml/min; Estimated Glomerular Filt Rate 46; Glucose 97 mg/dL (65-110); Potassium 4.3 mmol/L (3.4-5.0); Sodium 135 mmol/L (137-145)
[2024-03-29] MEDS: ACETYLCYSTEINE 20% INHAL SOLN 800 MG/4 ML VIAL 200 MG INHALATION ×2 (07:48→20:06)
--- NOTE | 2024-03-29 08:03 | PM.PNCARD ---
Progress Note: A&P Assessment and Plan (1) Systolic dysfunction: Code(s): I51.9 - Heart disease, unspecified Status: Acute Assessment and Plan: 03/11/24 Moderate with EF 35-40% and was 45%, mild RVE, mechanical AV, mild AI, mod MR/TR. Euvolemic on Lasix. 03/22/24 Lexiscan myoview: Negative for ischemia. (2) Mechanical heart valve present: Code(s): Z95.2 - Presence of prosthetic heart valve Status: Acute Assessment and Plan: On Warfarin normally to keep INR 2.5-3.0 and managed by her PCP. Had anterior abdominal hematoma from Lovenox. Stopped Lovenox. (3) Atrial fibrillation: Code(s): I48.91 - Unspecified atrial fibrillation Status: Acute Assessment and Plan: Controlled now, but rate fluctuates here up to 160's bpm which could be due to volume depletion/anemia/pain. Normally she is not very fast on low dose Metoprolol 12.5 mg daily. Normally on Warfarin as per treatment for mechanical AVR. Decrease Metoprolol 25 mg TID. Started 03/25/24 Sotalol to keep her in sinus rhythm. Normal controlled heart on Sotalol 40 mg daily. (4) Hyperlipidemia: Qualifiers: Hyperlipidemia type: mixed hyperlipidemia Qualified Code(s): E78.2 - Mixed hyperlipidemia Code(s): E78.5 - Hyperlipidemia, unspecified Status: Acute Assessment and Plan: On Simvastatin. (5) HTN (hypertension): Qualifiers: Hypertension type: primary hypertension Qualified Code(s): I10 - Essential (primary) hypertension Code(s): I10 - Essential (primary) hypertension Status: Acute Assessment and Plan: Stable. (6) LBBB (left bundle branch block): Code(s): I44.7 - Left bundle-branch block, unspecified Status: Acute (7) Elevated troponin: Code(s): R77.8 - Other specified abnormalities of plasma proteins Status: Inactive Assessment and Plan: Flat and slightly elevated at .055. Could be related to demand ischemia from intermittent rapid HR/CKD/anemia. (8) Dyspnea: Code(s): R06.00 - Dyspnea, unspecified Status: Acute Assessment and Plan: With persistent cough. Obtain CXR. Subjective Date/time seen: 03/29/24 08:03 Interval history: No chest pain. She reports sob. Has a persistent cough. Exam Const: General: cooperative, healthy appearing and comfortable Orientation/consciousness: oriented to person, oriented to place and oriented to time Resp: Auscultation: no crackles, no rales, no rhonchi, wheezes and diminished lung sounds Cardio: Rate: regular rate and bradycardic Rhythm: abnormal rhythm Heart sounds: Clicking heart sound present (S2) and no murmurs Peripheral pulses: dorsalis pedis present Neuro: General: oriented to person, oriented to place and oriented to time Extrem: Right lower extremity: no edema Left lower extremity: no edema Objective Data Vital Signs Vital Signs: Vital Signs - 24 hr 03/28/24 09:30 03/28/24 10:00 03/28/24 11:58 Temperature 98.2 F Pulse Rate 73 76 67 Respiratory Rate 18 Blood Pressure 123/39 L Pulse Oximetry 96 Oxygen Delivery Oxygen Flow Rate Fraction of Inspired Oxygen 03/28/24 12:00 03/28/24 14:00 03/28/24 14:30 Temperature Pulse Rate 63 69 87 Respiratory Rate 18 Blood Pressure Pulse Oximetry Oxygen Delivery Oxygen Flow Rate Fraction of Inspired Oxygen 03/28/24 14:40 03/28/24 16:00 03/28/24 16:21 Temperature 98.3 F Pulse Rate 85 73 77 Respiratory Rate 18 22 H Blood Pressure 128/49 L Pulse Oximetry 96 Oxygen Delivery Oxygen Flow Rate Fraction of Inspired Oxygen 03/28/24 19:59 03/28/24 20:00 03/28/24 20:20 Temperature 101.8 F H Pulse Rate 79 83 Respiratory Rate 24 H Blood Pressure 128/56 L Pulse Oximetry 92 87 L Oxygen Delivery Room Air Oxygen Flow Rate Fraction of Inspired Oxygen 21 03/28/24 20:22 03/28/24 20:22 03/28/24 20:40 Temperature Pulse Rate 83 80 Respiratory Rate 22 H 22 H Blood Pressure Pulse Oximetry 92 93 Oxygen Delivery Nasal Cannula Nasal Cannula Oxygen Flow Rate 2 2 Fraction of Inspired Oxygen 28 03/28/24 20:42 03/28/24 20:44 03/28/24 21:44 Temperature 101.8 F H 100.0 F H Pulse Rate 80 Respiratory Rate 22 H Blood Pressure Pulse Oximetry Oxygen Delivery Oxygen Flow Rate Fraction of Inspired Oxygen 03/28/24 23:40 03/29/24 00:00 03/29/24 01:19 Temperature 98.7 F Pulse Rate 75 73 65 Respiratory Rate 22 H 21 H Blood Pressure 112/58 L Pulse Oximetry 97 Oxygen Delivery Oxygen Flow Rate Fraction of Inspired Oxygen 03/29/24 01:30 03/29/24 04:00 03/29/24 04:00 Temperature 97.7 F Pulse Rate 60 63 56 L Respiratory Rate 21 H 20 Blood Pressure 110/48 L Pulse Oximetry 99 Oxygen Delivery Oxygen Flow Rate Fraction of Inspired Oxygen 03/29/24 07:49 03/29/24 07:51 03/29/24 08:02 Temperature 97.7 F Pulse Rate 77 74 Respiratory Rate 22 H 24 H Blood Pressure 108/89 Pulse Oximetry 92 95 Oxygen Delivery Nasal Cannula Oxygen Flow Rate 2 Fraction of Inspired Oxygen Intake/Output Intake/Output: Intake & Output 03/26/24 03/27/24 03/28/24 03/29/24 23:59 23:59 23:59 23:59 Intake Total 566 686 2255 100 Output Total 900 650 500 200 Balance 70 320 800 -100 Meds/Results Medications: Active Medications Generic Name Dose Route Start Last Admin Trade Name Freq PRN Reason Stop Dose Admin Acetaminophen 1,000 mg 03/10/24 10:04 03/28/24 20:44 Acetaminophen 500 Mg Tablet PO 1,000 mg Q6H PRN Administration Mild Pain (1-3) or Fever Hydrocodone Bitart/Acetaminophen 1 tab 03/08/24 17:21 03/28/24 04:49 Hydrocodone/Acetaminophen (*Crx) 5-325 Mg Tablet PO 04/05/24 23:59 1 tab Q6H PRN Administration Pain Rated 4-6 Acetylcysteine 200 mg 03/22/24 20:00 03/29/24 07:48 Acetylcysteine 20% Inhal Soln 800 Mg/4 Ml Vial INHALATION 200 mg Q12HRT IAN Administration Alprazolam 0.25 mg 03/08/24 17:21 03/20/24 21:42 Alprazolam (*Crx) 0.25 Mg Tablet PO 04/05/24 23:59 0.25 mg HS PRN Administration Anxiety Benzocaine 1 lozenge 03/10/24 18:17 03/16/24 08:17 Benzocaine/Menthol (*Bkc) 18 Ea Lozenge PO 1 lozenge PRN PRN Administration Sore Throat Cyanocobalamin 1,000 mcg 03/09/24 09:00 03/28/24 09:30 Cyanocobalamin 1,000 Mcg Tablet PO 1,000 mcg DAILY IAN Administration Cyclobenzaprine HCl 5 mg 03/19/24 14:03 03/26/24 22:28 Cyclobenzaprine Hcl 5 Mg Tablet PO 5 mg Q8H PRN Administration Muscle Spasm Dextromethorphan Polistirix 60 mg 03/28/24 09:00 03/28/24 21:20 Dextromethorphan Polistirex 60 Mg/10 Ml Syringe PO 60 mg Q12HR IAN Administration Diclofenac Sodium 1 applic 03/10/24 10:04 03/27/24 00:50 Diclofenac Sodium 1% 100 Gm Gel (*Bkc) TOPICAL 1 applic QID PRN Administration joint pain Diclofenac Sodium 1 applic 03/19/24 17:00 03/28/24 20:49 Diclofenac Sodium 1% 100 Gm Gel (*Bkc) TOPICAL Not Given QID IAN Furosemide 20 mg 03/16/24 09:00 03/28/24 09:29 Furosemide 20 Mg Tablet PO 20 mg DAILY IAN Administration Gabapentin 300 mg 03/08/24 21:00 03/28/24 20:44 Gabapentin 300 Mg Capsule PO 300 mg Q12HR IAN Administration Guaifenesin 1,200 mg 03/13/24 12:50 03/28/24 20:44 Guaifenesin 12 Hr 600 Mg Tabcr PO 1,200 mg Q12HR IAN Administration Hydromorphone HCl 0.2 mg 03/21/24 11:31 03/21/24 11:54 Hydromorphone Hcl Inj (*Crx) 1 Mg/Ml Syr IV PUSH 0.2 mg Q6H PRN Administration Pain Rated 7-10 Levalbuterol HCl 1.25 mg 03/22/24 14:00 03/29/24 07:48 Levalbuterol Neb 1.25 Mg/3 Ml INHALATION 1.25 mg Q6HRT IAN Administration Melatonin 5 mg 03/15/24 21:00 03/28/24 20:44 Melatonin 5 Mg Tablet PO 5 mg HS IAN Administration Methimazole 5 mg 03/09/24 09:00 03/28/24 09:29 Methimazole 5 Mg Tab PO 5 mg DAILY IAN Administration Cinacalcet 15 Mg 0 each 03/10/24 09:00 03/28/24 09:33 Tablet PO 04/09/24 08:59 15 each DAILY IAN Administration Pantoprazole Sodium 40 mg 03/09/24 09:00 03/28/24 09:30 Pantoprazole 40 Mg Tablet PO 40 mg QAM IAN Administration Polyethylene Glycol 17 gm 03/22/24 09:00 03/28/24 09:29 Polyethylene Glycol 3350 17 Gm Powd.Pack PO Not Given QAM IAN Potassium Chloride 10 meq 03/08/24 21:00 03/28/24 20:44 Potassium Chloride 10 Meq Er Tablet PO 10 meq HS IAN Administration Simvastatin 10 mg 03/08/24 21:00 03/28/24 20:44 Simvastatin 10 Mg Tablet PO 10 mg HS IAN Administration Sotalol HCl 40 mg 03/27/24 14:00 03/28/24 09:30 Sotalol Hcl 40 Mg Tablet PO 40 mg DAILY IAN Administration Venlafaxine HCl 150 mg 03/09/24 09:00 03/28/24 09:30 Venlafaxine Hcl Xr 75 Mg Cap.Er.24h PO 150 mg DAILY IAN Administration Vitamin D 1,000 units 03/09/24 09:00 03/28/24 09:29 Cholecalciferol 1,000 Units Tablet PO 1,000 units DAILY IAN Administration Warfarin Sodium 9 mg 03/11/24 17:00 03/13/24 17:40 Warfarin (*Pbkc) 3 Mg Tablet PO 9 mg DAILY@1700 IAN Administration Warfarin Sodium 6 mg 03/22/24 17:00 03/28/24 16:53 Warfarin (*Pbkc) 3 Mg Tablet PO 6 mg DAILY@1700 IAN Administration Radiology Results: ITS Impressions Chest/Abdomen/Pelvis CT 03/21/24 12:36 IMPRESSION: CHEST: 1. No acute cardiopulmonary pathology. 2. Compression fracture of T6. MRI evaluation advised. ABDOMEN/PELVIS: 1. Hematoma in the left anterior abdominal wall. 2. Constipation. Lexiscan Stress Test 03/22/24 12:28 IMPRESSION: 1. No definite ischemia or infarct. 2. Normal left ventricular ejection fraction measuring 56%. Lumbar Spine X-Ray 03/23/24 13:40 IMPRESSION: 1. Mild lumbar spondylosis. 2. Lumbar dextroscoliosis. Cervical Spine CT 03/24/24 15:01 IMPRESSION: 1. Moderate cervical spondylosis, stable from 11/13/2020. 2. Cervicothoracic levoscoliosis. Chest X-Ray 03/26/24 06:15 IMPRESSION: 1. Cardiomegaly. Labs Labs: Laboratory Results - last 24 hr 03/29/24 05:31 WBC 18.8 H RBC 2.69 L Hgb 8.9 L Hct 28.6 L MCV 106.3 H MCH 33.1 MCHC 31.1 L RDW 14.3 Plt Count 368 MPV 12.7 H Sodium 135 L Potassium 4.3 Chloride 99 Carbon Dioxide 32 H Anion Gap 4 BUN 22 H Creatinine 1.15 H Estim Creat Clear Calc 38 Estimated GFR 46 L Glucose 97 Calcium 9.2 Total Bilirubin 0.9 AST 36 ALT 25 Alkaline Phosphatase 72 Total Protein 7.0 Albumin 3.1 L
[2024-03-29] MEDS: SOTALOL HCL 40 MG TABLET PO (08:51)
[2024-03-29] MEDS: PANTOPRAZOLE 40 MG TABLET PO (08:51)
[2024-03-29] MEDS: CYANOCOBALAMIN 1,000 MCG TABLET 1000 MCG PO (08:51)
[2024-03-29] MEDS: methiMAzole 5 MG TAB PO (08:51)
[2024-03-29] MEDS: guaiFENesin 12 HR 600 MG TABCR 1200 MG PO ×2 (08:51→20:31)
[2024-03-29] MEDS: CINACALCET PO (08:51)
[2024-03-29] MEDS: FUROSEMIDE 20 MG TABLET PO (08:51)
[2024-03-29] MEDS: CHOLECALCIFEROL 1,000 UNITS TABLET 1000 UNITS PO (08:51)
[2024-03-29] MEDS: VENLAFAXINE HCL XR 75 MG CAP.ER.24H 150 MG PO (08:51)
[2024-03-29] MEDS: GABAPENTIN 300 MG CAPSULE PO ×2 (08:51→20:31)
[2024-03-29] MEDS: polyethylene glycoL 3350 17 GM POWD.PACK PO (08:52)
[2024-03-29] MEDS: DICLOFENAC SODIUM 1% 100 GM GEL (*BKC) 1 APPLIC TOPICAL ×3 (08:53→16:49)
[2024-03-29] MEDS: DEXTROMETHORPHAN POLISTIREX 60 MG/10 ML SYRINGE PO ×2 (09:05→20:31)
[2024-03-29 09:57] LABS: Lactic Acid Reflex 1.4 mmol/L (0.7-2.0)
[2024-03-29 10:11] LABS: INR 4.4; Prothrombin Time 42.5 Seconds (11.1-14.7)
[2024-03-29 11:27] LABS: Influenza A QL RT-PCR Negative (Negative); Influenza B QL RT-PCR Negative (Negative); RSV RNA, RT-PCR Negative (Negative); SARS-CoV-2 RNA PCR Negative (Negative)
[2024-03-29 12:51] LABS: Magnesium 1.5 mg/dL (1.6-2.3)
[2024-03-29] MEDS: ACETAMINOPHEN 500 MG TABLET 1000 MG PO (14:54)
--- NOTE | 2024-03-29 15:50 | P.PNIM_ITS ---
Progress Note: A&P Assessment and Plan (1) Mechanical heart valve present: Code(s): Z95.2 - Presence of prosthetic heart valve Status: Acute Assessment and Plan: 03/21 : I assumed care today. Patient INR is 3.1. Patient target INR is 2.5-3. Currently warfarin is on hold. Patient is also on Lovenox 80 mg b.i.d.. Since patient is already over therapeutic INR and in spite of receiving Lovenox makes her over anticoagulated. So today discontinued Lovenox. Given her warfarin 5 mg x 1 and possibly restart her home warfarin dosage 9mg from tomorrow. I performed CT chest/abdomen/pelvis which shows hematoma in the left anterior abdominal wall 3 x 2.5 cm. Discussed the goal of care with the nursing team. Patient wants some time to decide on her code status. 03/22: Surgery evaluated the patient under report overlying skin appears intact and there is no signs of infection. No indication for surgical intervention at this time. Patient has some cough and congestion. Patient is already on Mucinex, cornet. Ordered Xopenex around the clock for 2 days and Mucomyst b.i.d.. Discussed with the pharmacist and resume her home dose 6 mg not the 9 mg from today. Patient underwent a Lexiscan today 03/23: INR 3.3. Holding warfarin home dose is 6 mg. Hematoma of the abdominal wall has been evaluated by the surgery and currently does not need surgical intervention. Patient underwent Lexiscan yesterday which shows: 1. No definite ischemia or infarct. 2. Normal left ventricular ejection fraction measuring 56%. 03/24: Today patient is complaining about neck pain. Ordered Cervical CT. INR is 3.1, holding warfarin. Lexiscan is negative.In regards to hematoma no indication for surgical intervention at this time. 03/25: Today morning rapid response was called due to increased heart rate in 170s/180s. During my evaluation patient heart rate was already down to 110s/120s. Patient was evaluated by the Cardiology at the time who who started her on sotalol 80 mg p.o. b.i.d.. Patient is already on metoprolol 25 mg p.o. t.i.d.. Patient INR is 2.5 and restarted her home warfarin does 6 mg. Possible discharge to SNF after stabilizing her heart rate. 03/26: Patient pain is improving. Chest is congested but no evidence of PNA. Ordered extra dose of Lasix 40 mg IV x 1. Patient started on Sotalol 80mg PO BID.INR 2.6, continue her home dose 6mg Warfarin. 03/27: INR 3, continue home dose Warfarin 6mg PO QD.Advised aggressive incentive spirometry and Cornet valve. Decreased her Sotalol dose to 40mg PO QD from Sotalol 80mg PO BID 03/28:Patient still congested. Given extra dose of Lasix 40mg IV x 1.Added Dextromethorphan. Other than the congestion she feels better. Hematoma is improving. INR is 2.9. Continue her home dose warfarin 6 mg PO QD. Patient had some dose adjustments of Sotalol and currently takes 40mg PO QD. Patient is cleared from Cardiology standpoint of view for discharge. Pending shelter approval Supratherapeutic INR 4.4 Hold warfarin Evidence of hematoma in the left anterior abdominal wall 3 x 2.5 cm monitor (2) Palpitations: Code(s): R00.2 - Palpitations Status: Acute Assessment and Plan: - Likely due to PAF with RVR. - Better after hydration and resuming home meds. (3) Acute kidney injury: Code(s): N17.9 - Acute kidney failure, unspecified Status: Acute Assessment and Plan: Ddx pre-renal vs poor PO intake vs meds vs other. s/p 500 bolus with tachycardia --Resumed lasix --Creatinine stable (4) HTN (hypertension): Qualifiers: Hypertension type: primary hypertension Qualified Code(s): I10 - Essential (primary) hypertension Code(s): I10 - Essential (primary) hypertension Status: Acute Assessment and Plan: - Appears well controlled. - Continue metoprolol, changed from XL to IR for titration - Follow VS (5) Hyperlipidemia: Qualifiers: Hyperlipidemia type: mixed hyperlipidemia Qualified Code(s): E78.2 - Mi xed hyperlipidemia Code(s): E78.5 - Hyperlipidemia, unspecified Status: Acute Assessment and Plan: * continue simvastatin (6) Shortness of breath: Code(s): R06.02 - Shortness of breath Status: Acute Assessment and Plan: Mildly tachypneic. Not obviously overloaded on exam, likely 2/2 pneumonia --Started heparin drip, if not resolved consider a CT r/o PE, but is on warfarin chronically for mechanical heart valve --Treatment of pneumonia and heart failure, rate control afib --PEP therapy for airway clearance (7) Anemia: Code(s): D64.9 - Anemia, unspecified Status: Acute Assessment and Plan: Blood count trending down since admission but may be dilutional 14.2>8.9 Iron panel showing iron deficiency anemia, Total Iron and Tsat low. B12 636. LDH 245 --iron sucrose 1000mg --Follow CBC --If downtrending would need GI consult on chronic anticoagulation Gi consulted for Gi bleed eval FOBT pending (8) Heart failure, diastolic, acute on chronic: Code(s): I50.33 - Acute on chronic diastolic (congestive) heart failure Status: Acute Assessment and Plan: 08/24/23 Echo: TDS. EF 45%, biatrial enlargement, suspect (YADIRA 1.4 cm2), mod MR, mild-mod TR. s/p 500ml fluid bolus, now back on IV lasix NT-proBNP 10,000 Resume lasix, 20mg IV daily & increase as able TTE * Flipped back into A fib RVR overnight * Repeat EKG showing new LBBB--Cardiology was notified. * Mild troponin bump--likely demand ischemia * No significant finding in Lexiscan * monitor (9) Pneumonia: Code(s): J18.9 - Pneumonia, unspecified organism Status: Acute Assessment and Plan: Resolved. Hospital associated pneumonia. Chest x-ray showed possible RLL pneumonia. Has crackles on exam. Intermittent fevers. Resolved today after starting unasyn. On room air completed antibiotics (10) Atrial fibrillation with RVR: Code(s): I48.91 - Unspecified atrial fibrillation Status: Acute Assessment and Plan: on Sotalol and Warfarin which is on hold due to supratherapeutic INR monitor Plan DVT prophylaxis on Warfarin whcih is on hold for elevated INR Subjective Date/time seen: 03/29/24 15:50 Interval history: comfortable at bedside INR is 4.4, warfarin on hold Completed antibiotics CXR and lactic acid this morning normal Review of Systems Review of Systems: All systems reviewed & are unremarkable except as noted in HPI and below Constitutional: Constitutional: Reports as per HPI and Reports no additional constitutional complaints Eyes: Eyes: Reports as per HPI and Reports no additional eye complaints ENT: Reports system reviewed and no additional complaints, except as documented and Reports as per HPI Cardiovascular: Cardiovascular: Reports as per HPI and Reports no additional cardiovascular complaints Respiratory: Respiratory: Reports as per HPI and Reports no additional respiratory complaints Gastrointestinal: Gastrointestinal: Reports as per HPI and Reports no additional gastrointestinal complaints Genitourinary: Genitourinary: Reports no additional female genitourinary complaints and Reports as per HPI Musculoskeletal: Musculoskeletal: Reports no additional musculoskeletal complaints and Reports as per HPI Integumentary/Breasts: Skin/Breast: Reports system reviewed and no additional complaints, except as docu and Reports as per HPI Neurologic: Reports system reviewed and no additional complaints, except as do cumented and Reports as per HPI Psychiatric: Psychiatric: Reports no additional psychiatric complaints and Reports as per HPI Exam Narrative: General: In no acute distress, well nourished Cardiac: Normal S1 and S2. NSR, No murmur, gallops or friction rubs, peripheral pulses intact. Respiratory: Lungs clear bilaterally , no adventitious lung sounds, currently on room air, raspy cough Gastrointestinal: soft, non-distended, non-tender, normoactive bowel sounds. : voiding without difficulty. Neuro: Alert and oriented x4 Objective Data Vital Signs Vital Signs: Vital Signs - 24 hr 03/28/24 16:00 03/28/24 16:21 03/28/24 19:59 Temperature 98.3 F 101.8 F H Pulse Rate 73 77 79 Respiratory Rate 22 H 24 H Blood Pressure 128/49 L 128/56 L Pulse Oximetry 96 92 Oxygen Delivery Oxygen Flow Rate Fraction of Inspired Oxygen 03/28/24 20:00 03/28/24 20:20 03/28/24 20:22 Temperature Pulse Rate 83 83 Respiratory Rate 22 H Blood Pressure Pulse Oximetry 87 L Oxygen Delivery Room Air Oxygen Flow Rate Fraction of Inspired Oxygen 21 03/28/24 20:22 03/28/24 20:40 03/28/24 20:42 Temperature Pulse Rate 80 80 Respiratory Rate 22 H 22 H Blood Pressure Pulse Oximetry 92 93 Oxygen Delivery Nasal Cannula Nasal Cannula Oxygen Flow Rate 2 2 Fraction of Inspired Oxygen 28 03/28/24 20:44 03/28/24 21:44 03/28/24 23:40 Temperature 101.8 F H 100.0 F H 98.7 F Pulse Rate 75 Respiratory Rate 22 H Blood Pressure 112/58 L Pulse Oximetry 97 Oxygen Delivery Oxygen Flow Rate Fraction of Inspired Oxygen 03/29/24 00:00 03/29/24 01:19 03/29/24 01:30 Temperature Pulse Rate 73 65 60 Respiratory Rate 21 H 21 H Blood Pressure Pulse Oximetry Oxygen Delivery Oxygen Flow Rate Fraction of Inspired Oxygen 03/29/24 04:00 03/29/24 04:00 03/29/24 07:49 Temperature 97.7 F Pulse Rate 63 56 L 77 Respiratory Rate 20 22 H Blood Pressure 110/48 L Pulse Oximetry 99 Oxygen Delivery Oxygen Flow Rate Fraction of Inspired Oxygen 03/29/24 07:51 03/29/24 08:00 03/29/24 08:00 Temperature Pulse Rate 76 Respiratory Rate Blood Pressure Pulse Oximetry 92 95 Oxygen Delivery Nasal Cannula Nasal Cannula Oxygen Flow Rate 2 2 Fraction of Inspired Oxygen 03/29/24 08:02 03/29/24 08:06 03/29/24 08:51 Temperature 97.7 F Pulse Rate 74 80 75 Respiratory Rate 24 H 22 H Blood Pressure 108/89 Pulse Oximetry 95 Oxygen Delivery Oxygen Flow Rate Fraction of Inspired Oxygen 03/29/24 12:00 03/29/24 12:26 03/29/24 13:50 Temperature 98.7 F Pulse Rate 82 75 86 Respiratory Rate 24 H 22 H Blood Pressure 143/62 H Pulse Oximetry 93 Oxygen Delivery Oxygen Flow Rate Fraction of Inspired Oxygen 03/29/24 13:57 03/29/24 14:00 Temperature Pulse Rate 81 82 Respiratory Rate 22 H Blood Pressure Pulse Oximetry Oxygen Delivery Oxygen Flow Rate Fraction of Inspired Oxygen Intake/Output Intake/Output: Intake & Output 03/26/24 03/27/24 03/28/24 03/29/24 23:59 23:59 23:59 23:59 Intake Total 243 821 0254 460 Output Total 900 650 500 200 Balance 70 320 800 260 Meds/Results Medications: Active Medications Generic Name Dose Route Start Last Admin Trade Name Freq PRN Reason Stop Dose Admin Acetaminophen 1,000 mg 03/10/24 10:04 03/29/24 14:54 Acetaminophen 500 Mg Tablet PO 1,000 mg Q6H PRN Administration Mild Pain (1-3) or Fever Hydrocodone Bitart/Acetaminophen 1 tab 03/08/24 17:21 03/28/24 04:49 Hydrocodone/Acetaminophen (*Crx) 5-325 Mg Tablet PO 04/05/24 23:59 1 tab Q6H PRN Administration Pain Rated 4-6 Acetylcysteine 200 mg 03/22/24 20:00 03/29/24 07:48 Acetylcysteine 20% Inhal Soln 800 Mg/4 Ml Vial INHALATION 200 mg Q12HRT IAN Administration Alprazolam 0.25 mg 03/08/24 17:21 03/20/24 21:42 Alprazolam (*Crx) 0.25 Mg Tablet PO 04/05/24 23:59 0.25 mg HS PRN Administration Anxiety Benzocaine 1 lozenge 03/10/24 18:17 03/16/24 08:17 Benzocaine/Menthol (*Bkc) 18 Ea Lozenge PO 1 lozenge PRN PRN Administration Sore Throat Cyanocobalamin 1,000 mcg 03/09/24 09:00 03/29/24 08:51 Cyanocobalamin 1,000 Mcg Tablet PO 1,000 mcg DAILY IAN Administration Cyclobenzaprine HCl 5 mg 03/19/24 14:03 03/26/24 22:28 Cyclobenzaprine Hcl 5 Mg Tablet PO 5 mg Q8H PRN Administration Muscle Spasm Dextromethorphan Polistirix 60 mg 03/28/24 09:00 03/29/24 09:05 Dextromethorphan Polistirex 60 Mg/10 Ml Syringe PO 60 mg Q12HR IAN Administration Diclofenac Sodium 1 applic 03/10/24 10:04 03/27/24 00:50 Diclofenac Sodium 1% 100 Gm Gel (*Bkc) TOPICAL 1 applic QID PRN Administration joint pain Diclofenac Sodium 1 applic 03/19/24 17:00 03/29/24 13:00 Diclofenac Sodium 1% 100 Gm Gel (*Bkc) TOPICAL 1 applic QID IAN Administration Furosemide 20 mg 03/16/24 09:00 03/29/24 08:51 Furosemide 20 Mg Tablet PO 20 mg DAILY IAN Administration Gabapentin 300 mg 03/08/24 21:00 03/29/24 08:51 Gabapentin 300 Mg Capsule PO 300 mg Q12HR IAN Administration Guaifenesin 1,200 mg 03/13/24 12:50 03/29/24 08:51 Guaifenesin 12 Hr 600 Mg Tabcr PO 1,200 mg Q12HR IAN Administration Hydromorphone HCl 0.2 mg 03/21/24 11:31 03/21/24 11:54 Hydromorphone Hcl Inj (*Crx) 1 Mg/Ml Syr IV PUSH 0.2 mg Q6H PRN Administration Pain Rated 7-10 Levalbuterol HCl 1.25 mg 03/22/24 14:00 03/29/24 13:48 Levalbuterol Neb 1.25 Mg/3 Ml INHALATION 1.25 mg Q6HRT IAN Administration Melatonin 5 mg 03/15/24 21:00 03/28/24 20:44 Melatonin 5 Mg Tablet PO 5 mg HS IAN Administration Methimazole 5 mg 03/09/24 09:00 03/29/24 08:51 Methimazole 5 Mg Tab PO 5 mg DAILY IAN Administration Cinacalcet 15 Mg 0 each 03/10/24 09:00 03/29/24 08:51 Tablet PO 04/09/24 08:59 15 each DAILY IAN Administration Pantoprazole Sodium 40 mg 03/09/24 09:00 03/29/24 08:51 Pantoprazole 40 Mg Tablet PO 40 mg QAM IAN Administration Polyethylene Glycol 17 gm 03/22/24 09:00 03/29/24 08:52 Polyethylene Glycol 3350 17 Gm Powd.Pack PO 17 gm QAM IAN Administration Potassium Chloride 10 meq 03/08/24 21:00 03/28/24 20:44 Potassium Chloride 10 Meq Er Tablet PO 10 meq HS IAN Administration Simvastatin 10 mg 03/08/24 21:00 03/28/24 20:44 Simvastatin 10 Mg Tablet PO 10 mg HS IAN Administration Sotalol HCl 40 mg 03/27/24 14:00 03/29/24 08:51 Sotalol Hcl 40 Mg Tablet PO 40 mg DAILY IAN Administration Venlafaxine HCl 150 mg 03/09/24 09:00 03/29/24 08:51 Venlafaxine Hcl Xr 75 Mg Cap.Er.24h PO 150 mg DAILY IAN Administration Vitamin D 1,000 units 03/09/24 09:00 03/29/24 08:51 Cholecalciferol 1,000 Units Tablet PO 1,000 units DAILY IAN Administration Warfarin Sodium 9 mg 03/11/24 17:00 03/13/24 17:40 Warfarin (*Pbkc) 3 Mg Tablet PO 9 mg DAILY@1700 IAN Administration Warfarin Sodium 6 mg 03/22/24 17:00 03/28/24 16:53 Warfarin (*Pbkc) 3 Mg Tablet PO 6 mg DAILY@1700 [facility] Administration Radiology Results: ITS Impressions Chest/Abdomen/Pelvis CT 03/21/24 12:36 IMPRESSION: CHEST: 1. No acute cardiopulmonary pathology. 2. Compression fracture of T6. MRI evaluation advised. ABDOMEN/PELVIS: 1. Hematoma in the left anterior abdominal wall. 2. Constipation. Lexiscan Stress Test 03/22/24 12:28 IMPRESSION: 1. No definite ischemia or infarct. 2. Normal left ventricular ejection fraction measuring 56%. Lumbar Spine X-Ray 03/23/24 13:40 IMPRESSION: 1. Mild lumbar spondylosis. 2. Lumbar dextroscoliosis. Cervical Spine CT 03/24/24 15:01 IMPRESSION: 1. Moderate cervical spondylosis, stable from 11/13/2020. 2. Cervicothoracic levoscoliosis. Chest X-Ray 03/29/24 09:34 IMPRESSION: 1. Mild atelectasis at left lung base. 2. Cardiomegaly. Chest CTA 03/29/24 12:58 IMPRESSION: 1. Bilateral pneumonia in the upper lobes and lower lobes. 2. No pulmonary embolus. 3. Liver surface nodularity suspicious for cirrhosis. Labs Labs: Laboratory Results - last 24 hr 03/29/24 03/29/24 03/29/24 05:31 09:38 10:44 WBC 18.8 H RBC 2.69 L Hgb 8.9 L Hct 28.6 L MCV 106.3 H MCH 33.1 MCHC 31.1 L RDW 14.3 Plt Count 368 MPV 12.7 H PT 42.5 H D INR 4.4 Sodium 135 L Potassium 4.3 Chloride 99 Carbon Dioxide 32 H Anion Gap 4 BUN 22 H Creatinine 1.15 H Estim Creat Clear Calc 38 Estimated GFR 46 L Glucose 97 Lactic Acid 1.4 Calcium 9.2 Magnesium 1.5 L Total Bilirubin 0.9 AST 36 ALT 25 Alkaline Phosphatase 72 Total Protein 7.0 Albumin 3.1 L Influenza A (RT-PCR) Negative Influenza B (RT-PCR) Negative RSV (RT-PCR) Negative SARS-CoV-2 RNA (RT-PCR) Negative Quality VTE Prophylaxis VTE prophylaxis: pharmacologic ordered
[2024-03-29] MEDS: MAGNESIUM SULF 2 GM/WATER 50ML 2 GM/50 ML BAG IVPB (16:48)
[2024-03-29] MEDS: IRON SUCROSE COMPLEX 100 MG in SODIUM CHLORIDE 0.9% IV 50 ML 220 MG IVPB (16:49)
[2024-03-29] MEDS: CEFEPIME 2 GM/NS 50 ML 2 GM/50 ML BAG IVPB (20:29)
[2024-03-29] MEDS: DOXYCYCLINE 100 MG/NS 100 ML 100 MG/100 ML BAG IVPB (20:31)
[2024-03-29] MEDS: POTASSIUM CHLORIDE 10 MEQ ER TABLET PO (20:31)
[2024-03-29] MEDS: MELATONIN 5 MG TABLET PO (20:31)
[2024-03-29] MEDS: SIMVASTATIN 10 MG TABLET PO (20:31)
[2024-03-29] MEDS: HYDROcodone/acetaminophen (*CRX) 5-325 MG TABLET 1 TAB PO (20:42)
[2024-03-29] MEDS: ALPRAZolam (*CRX) 0.25 MG TABLET PO (23:49)
[2024-03-30] VITALS (25 sets, daily range): BP systolic 105–122; BP diastolic 44–59; PULSE 62–779; RESP 18–28; TEMP 36.6–37.7; O2SAT 90–100; BMI 31.6
[2024-03-30] MEDS: LEVALBUTEROL NEB 1.25 MG/3 ML INHALATION ×4 (02:11→19:38)
[2024-03-30 04:43] LABS: Hematocrit 30.1 % (37.0-47.0); Hemoglobin 9.6 g/dL (12.0-15.0); Mean Corpuscular HGB Conc 31.9 g/dl (32-36); Mean Corpuscular Hemoglobin 33.3 pg (26-34); Mean Corpuscular Volume 104.5 fl (80-100); Mean Platelet Volume 11.9 fl (7.4-10.4); Platelet Count Result 389 k/mm3 (150-375); Red Blood Count 2.88 M/mm3 (4.2-5.4); White Blood Count 17.1 K/mm3 (4.5-10.0)
[2024-03-30 04:54] LABS: INR 4.1; Prothrombin Time 40.2 Seconds (11.1-14.7)
[2024-03-30 05:01] LABS: Alanine Aminotransferase 23 U/L (6-35); Alkaline Phosphatase 99 U/L (38-126); Anion Gap 6 mmol/L (4-12); Aspartate Amino Transferase 29 U/L (14-36); Bilirubin,Total 0.8 mg/dL (0.2-1.3); Blood Urea Nitrogen 18 mg/dL (7-17); Calcium 8.9 mg/dL (8.4-10.2); Carbon Dioxide 32 mmol/L (22-30); Chloride 95 mmol/L (98-107); Estimated CRCL calculation 41 ml/min; Estimated Glomerular Filt Rate 50; Glucose 103 mg/dL (65-110); Magnesium 1.9 mg/dL (1.6-2.3); Potassium 3.7 mmol/L (3.4-5.0); Sodium 133 mmol/L (137-145)
[2024-03-30 05:07] LABS: Band Neutrophils Percent 10 % (0-6); Eosinophils Absolute Manual 0.51 K/mm3 (0.02-0.50); Eosinophils Percent Manual 3 % (0-4); Lymphocytes Absolute Manual 0.51 K/mm3 (1.1-4.5); Lymphocytes Percent Manual 3 % (18-44); Monocytes Absolute Manual 1.36 K/mm3 (0.1-0.90); Monocytes Percent Manual 8 % (3-9); Neutrophils Percent Manual 76 % (46-73); Total Cells Counted 100
[2024-03-30 05:08] LABS: Anisocytosis 1+; Ovalocytes 1+; Platelet Estimate Adequate (Adequate); Schistocytes None Seen
[2024-03-30] MEDS: ACETYLCYSTEINE 20% INHAL SOLN 800 MG/4 ML VIAL 200 MG INHALATION ×2 (07:15→19:39)
--- NOTE | 2024-03-30 07:24 | P.CONGI_ITS ---
Assessment and Plan Assessment and plan (1) Iron deficiency anemia: Code(s): D50.9 - Iron deficiency anemia, unspecified Status: Acute Assessment and Plan: The patient presents with iron deficiency anemia, raising the possibility of various underlying conditions, including gastric and colorectal neoplasia, angiodysplasia, large hiatal hernia, peptic ulcer disease, and erosive gastritis. However, her current clinical status precludes immediate endoscopic or colonoscopic evaluation. Moreover, her latest INR is elevated at 4.4. Given her mechanical heart valve, these procedures necessitate an INR below 2.5 and require bridging with heparin the day before. Once her clinical condition improves and she experiences no shortness of breath, we will schedule the necessary endoscopy and colonoscopy, along with the appropriate anticoagulation management. GI Consult Note Consult date/time: 03/30/24 07:24 HPI: Patient is a 78 y/o female who was admitted on 03/08/2024 with palpitations for 2 days. She has a history of mechanical valve replacement and A fib. Her hospital course has been characterized by difficult to control heart rate and persistent shortness of breath despite adequate diuresis. Reason for consultation is the finding of iron deficiency anemia ; on 03/27 her Hb was 8.4 and on 03/10 she had an iron saturation of 8%. the patient denies melena, hematemesis or rectal bleeding. She does not recall having had a colonoscopy, however at the moment of this interview the patient is short of breath and is not able to give an extensive history. She gets dyspneic just by talking. Review of Systems 2 Review of Systems: All systems reviewed & are unremarkable except as noted in HPI and below PMFSH Past Medical History Medical History Irritable bowel syndrome Gallbladder disorder Arthritis Vitamin B12 deficiency Atrial fibrillation with slow ventricular response Chronic kidney disease, stage 3b Chronic kidney disease Baseline creatinine is around 1.50. Restless leg syndrome Congestive heart failure Echocardiogram in March 2021 showed normal FVC size, moderate LVH, borderline LV systolic function with an EF of 50 to 55%, and grade 1 diastolic dysfunction. Depression with anxiety Degenerative joint disease Burst fracture of thoracic vertebra Kidney stone Obstructive sleep apnea on CPAP Diverticulitis Hypertension Type 2 diabetes mellitus Chronic obstructive pulmonary disease Patient had a pulmonary function test on 02/24/2020 which was suggestive of COPD. Chronic anticoagulation Paroxysmal atrial fibrillation On amiodarone therapy Depression Hyperlipidemia Herniated disc Surgical History Surgical History History of right knee surgery Ligamentous repair. History of bilateral cataract extraction History of mechanical aortic valve replacement (2003) [facility] valve. History of ankle surgery ORIF left ankle fracture. History of hysterectomy Family History Family History Mother Family history of cardiovascular disease Family history of arthritis CHF (congestive heart failure) Depression Family history of coronary artery disease Father Family history of cardiovascular disease Diabetes mellitus Family history of arthritis Acute myocardial infarction Family history of diabetes mellitus in first degree relative Sibling , cancer Family history of arthritis Malignant neoplasm of prostate Sibling Family history of arthritis Malignant neoplasm of prostate Social History Social History Social History: The patient is and lives in her own home with her small dog. 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 No alcohol or illicit drug use. Surrogate decision maker: Shannon Vigil, . Code status: Full code. Smoking status: Never smoker Second hand tobacco smoke exposure: No Alcohol intake: never Substance use: never Substance use type: does not use Do You Feel Safe in your Home?: Yes Lack of Transportation: YES Lack of Food: Never True Current Housing: I Have Housing Concerned About Future Housing: No Difficulty Paying Gas/Electric Bills: No Difficulty Paying for Meds: No Currently Unemployed: No Education: Grade School Difficulty w/ Childcare or Family Care: No Living arrangements: alone Occupation/Education: retired Additional gender identity comments: [employer] work Spiritual care concerns: No Agree to blood products: Yes Meds Home Medications and Allergies Home Medications ?Medication ?Instructions ?Recorded ?Confirmed ?Type albuterol sulfate 90 mcg/actuation 2 puff inhalation QID PRN 01/09/19 03/08/24 History aerosol inhaler Shortness Of Breath gabapentin 300 mg capsule 300 mg PO Q12H 01/09/19 03/08/24 History venlafaxine 150 mg 150 mg PO DAILY 01/09/19 03/08/24 History capsule,extended release 24 hr furosemide 20 mg tablet 20 mg PO DAILY 03/18/22 03/08/24 History potassium chloride 10 mEq 10 meq PO HS 03/18/22 03/08/24 History tablet,extended release cholecalciferol (vitamin D3) 1,000 units PO DAILY 08/23/23 03/08/24 History simvastatin 10 mg PO HS 08/23/23 03/08/24 History cyanocobalamin (vitamin B-12) 1,000 mcg PO DAILY #30 caps 08/26/23 03/08/24 Rx 1,000 mcg capsule metoprolol succinate 25 mg 12.5 mg (1/2 x 25 mg) PO DAILY #30 08/26/23 03/08/24 Rx tablet,extended release 24 hr tabs alprazolam 0.5 mg tablet 0.25 mg PO HS PRN Anxiety 11/01/23 03/08/24 History hydrocodone 5 mg-acetaminophen 325 1 - 2 tablet PO Q6H PRN Pain 11/01/23 03/08/24 History mg tablet omeprazole 40 mg capsule,delayed 40 mg PO DAILY 11/01/23 03/08/24 History release semaglutide 0.25 mg or 0.5 mg (2 0.5 mg subcut WEEKLY 11/12/23 03/08/24 History mg/3 mL) subcutaneous pen injector ([employer]) cinacalcet 30 mg tablet 15 mg PO DAILY 12/13/23 03/08/24 History methimazole 5 mg tablet 5 mg PO DAILY 12/13/23 03/08/24 History warfarin 6 mg tablet 6 mg PO DAILY 03/08/24 03/08/24 History Allergies Allergy/AdvReac Type Severity Reaction Status Date / Time adhesive tape Allergy Intermediate Blister Verified 03/07/24 15:30 cortisone Allergy Intermediate Rash Verified 03/07/24 15:30 bacitracin Allergy Mild Rash Verified 03/07/24 15:30 neomycin Allergy Mild Rash Verified 03/07/24 15:30 polymyxin B Allergy Mild Rash Verified 03/07/24 15:30 Vital Signs Vital Signs - 24 hr 03/29/24 07:49 03/29/24 07:51 03/29/24 08:00 Temperature Pulse Rate 77 Respiratory Rate 22 H Blood Pressure Pulse Oximetry 92 95 Oxygen Delivery Nasal Cannula Nasal Cannula Oxygen Flow Rate 2 2 03/29/24 08:00 03/29/24 08:02 03/29/24 08:06 Temperature 97.7 F Pulse Rate 76 74 80 Respiratory Rate 24 H 22 H Blood Pressure 108/89 Pulse Oximetry 95 Oxygen Delivery Oxygen Flow Rate 03/29/24 08:51 03/29/24 12:00 03/29/24 12:26 Temperature 98.7 F Pulse Rate 75 82 75 Respiratory Rate 24 H Blood Pressure 143/62 H Pulse Oximetry 93 Oxygen Delivery Oxygen Flow Rate 03/29/24 13:50 03/29/24 13:57 03/29/24 14:00 Temperature Pulse Rate 86 81 82 Respiratory Rate 22 H 22 H Blood Pressure Pulse Oximetry Oxygen Delivery Oxygen Flow Rate 03/29/24 15:55 03/29/24 16:00 03/29/24 18:43 Temperature 100.7 F H Pulse Rate 77 75 73 Respiratory Rate 24 H Blood Pressure 110/54 L Pulse Oximetry 94 Oxygen Delivery Oxygen Flow Rate 03/29/24 19:56 03/29/24 20:00 03/29/24 20:06 Temperature 98.5 F Pulse Rate 67 73 Respiratory Rate 24 H Blood Pressure 116/40 L Pulse Oximetry 98 98 Oxygen Delivery Nasal Cannula Oxygen Flow Rate 2 03/29/24 20:06 03/29/24 20:19 03/29/24 20:20 Temperature Pulse Rate 71 74 74 Respiratory Rate 24 H 24 H 24 H Blood Pressure Pulse Oximetry 98 Oxygen Delivery Nasal Cannula Oxygen Flow Rate 2 03/29/24 22:00 03/29/24 23:45 03/29/24 23:54 Temperature 98.3 F Pulse Rate 63 63 75 Respiratory Rate 24 H 20 Blood Pressure 110/57 L Pulse Oximetry 98 98 Oxygen Delivery Nasal Cannula Oxygen Flow Rate 2 03/30/24 00:00 03/30/24 02:00 03/30/24 02:12 Temperature Pulse Rate 74 82 78 Respiratory Rate 24 H Blood Pressure Pulse Oximetry Oxygen Delivery Oxygen Flow Rate 03/30/24 02:19 03/30/24 03:40 03/30/24 04:00 Temperature Pulse Rate 74 779 H 81 Respiratory Rate 24 H 22 H Blood Pressure Pulse Oximetry 95 Oxygen Delivery Nasal Cannula Oxygen Flow Rate 3 03/30/24 04:00 03/30/24 06:00 03/30/24 07:18 Temperature 98.3 F Pulse Rate 77 84 81 Respiratory Rate 18 24 H Blood Pressure 116/53 L Pulse Oximetry 95 Oxygen Delivery Oxygen Flow Rate 03/30/24 07:20 Temperature Pulse Rate Respiratory Rate Blood Pressure Pulse Oximetry 98 Oxygen Delivery Nasal Cannula Oxygen Flow Rate 2 Exam 2 Narrative: patient with nasal O2 cannula. Lungs: Bilateral wheezing diffusely. Unable to examine abdomen because she gets more dyspneic when laying down. Results Labs 03/30/24 04:15 03/30/24 04:15 Labs: Short CBC 03/30/24 Range/Units 04:15 WBC 17.1 H (4.5-10.0) K/mm3 Hgb 9.6 L (12.0-15.0) g/dL Hct 30.1 L (37.0-47.0) % Plt Count 389 H (150-375) k/mm3 BMP 03/30/24 04:15 Sodium 133 L Potassium 3.7 Chloride 95 L Carbon Dioxide 32 H BUN 18 H Creatinine 1.06 H Glucose 103 Calcium 8.9 Liver Function 03/30/24 Range/Units 04:15 Total Bilirubin 0.8 (0.2-1.3) mg/dL AST 29 (14-36) U/L ALT 23 (6-35) U/L Alkaline Phosphatase 99 (38-126) U/L Albumin 3.0 L (3.5-5.1) g/dL
--- NOTE | 2024-03-30 07:55 | PM.PNCARD ---
Progress Note: A&P Assessment and Plan (1) Systolic dysfunction: Code(s): I51.9 - Heart disease, unspecified Status: Acute Assessment and Plan: 03/11/24 Moderate with EF 35-40% and was 45%, mild RVE, mechanical AV, mild AI, mod MR/TR. Euvolemic on Lasix. 03/22/24 Lexiscan myoview: Negative for ischemia. (2) Mechanical heart valve present: Code(s): Z95.2 - Presence of prosthetic heart valve Status: Acute Assessment and Plan: On Warfarin normally to keep INR 2.5-3.0 and managed by her PCP. Had anterior abdominal hematoma from Lovenox. Stopped Lovenox. (3) Atrial fibrillation: Code(s): I48.91 - Unspecified atrial fibrillation Status: Acute Assessment and Plan: Controlled now, but rate fluctuates here up to 160's bpm which could be due to volume depletion/anemia/pain. Normally she is not very fast on low dose Metoprolol 12.5 mg daily. Normally on Warfarin as per treatment for mechanical AVR. Decrease Metoprolol 25 mg TID. Started 03/25/24 Sotalol to keep her in sinus rhythm. Normal controlled heart on Sotalol 40 mg daily with rhythm changing from ectopic atrial rhythm to controlled HR in atrial fibrillation. Will sign off, please call with any questions. Upon discharge, have her f/u with me in 2 weeks. (4) Hyperlipidemia: Qualifiers: Hyperlipidemia type: mixed hyperlipidemia Qualified Code(s): E78.2 - Mixed hyperlipidemia Code(s): E78.5 - Hyperlipidemia, unspecified Status: Acute Assessment and Plan: On Simvastatin. (5) HTN (hypertension): Qualifiers: Hypertension type: primary hypertension Qualified Code(s): I10 - Essential (primary) hypertension Code(s): I10 - Essential (primary) hypertension Status: Acute Assessment and Plan: Stable. (6) LBBB (left bundle branch block): Code(s): I44.7 - Left bundle-branch block, unspecified Status: Acute (7) Elevated troponin: Code(s): R77.8 - Other specified abnormalities of plasma proteins Status: Inactive Assessment and Plan: Flat and slightly elevated at .055. Could be related to demand ischemia from intermittent rapid HR/CKD/anemia. (8) Dyspnea: Code(s): R06.00 - Dyspnea, unspecified Status: Acute Assessment and Plan: With persistent cough, probably due to pneumonia. 03/29/24 CXR is OK. CTA chest shows bilateral pneumonia in upper and lower lobes. No pulm embolism. (9) Pneumonia: Code(s): J18.9 - Pneumonia, unspecified organism Status: Acute Assessment and Plan: On antibiotics, managed by hospitalist. Subjective Date/time seen: 03/30/24 07:55 Interval history: No chest pain. She reports sob. Has a persistent cough. Exam Const: General: cooperative, healthy appearing and comfortable Orientation/consciousness: oriented to person, oriented to place and oriented to time Resp: Auscultation: crackles, no rales, no rhonchi, no wheezes and diminished lung sounds Cardio: Rate: regular rate Rhythm: abnormal rhythm Heart sounds: Clicking heart sound present (S2) and no murmurs Peripheral pulses: dorsalis pedis present Neuro: General: oriented to person, oriented to place and oriented to time Extrem: Right lower extremity: no edema Left lower extremity: no edema Objective Data Vital Signs Vital Signs: Vital Signs - 24 hr 03/29/24 08:00 03/29/24 08:00 03/29/24 08:02 Temperature 97.7 F Pulse Rate 76 74 Respiratory Rate 24 H Blood Pressure 108/89 Pulse Oximetry 95 95 Oxygen Delivery Nasal Cannula Oxygen Flow Rate 2 03/29/24 08:06 03/29/24 08:51 03/29/24 12:00 Temperature Pulse Rate 80 75 82 Respiratory Rate 22 H Blood Pressure Pulse Oximetry Oxygen Delivery Oxygen Flow Rate 03/29/24 12:26 03/29/24 13:50 03/29/24 13:57 Temperature 98.7 F Pulse Rate 75 86 81 Respiratory Rate 24 H 22 H 22 H Blood Pressure 143/62 H Pulse Oximetry 93 Oxygen Delivery Oxygen Flow Rate 03/29/24 14:00 03/29/24 15:55 03/29/24 16:00 Temperature 100.7 F H Pulse Rate 82 77 75 Respiratory Rate 24 H Blood Pressure 110/54 L Pulse Oximetry 94 Oxygen Delivery Oxygen Flow Rate 03/29/24 18:43 03/29/24 19:56 03/29/24 20:00 Temperature 98.5 F Pulse Rate 73 67 73 Respiratory Rate 24 H Blood Pressure 116/40 L Pulse Oximetry 98 Oxygen Delivery Oxygen Flow Rate 03/29/24 20:06 03/29/24 20:06 03/29/24 20:19 Temperature Pulse Rate 71 74 Respiratory Rate 24 H 24 H Blood Pressure Pulse Oximetry 98 Oxygen Delivery Nasal Cannula Oxygen Flow Rate 2 03/29/24 20:20 03/29/24 22:00 03/29/24 23:45 Temperature Pulse Rate 74 63 63 Respiratory Rate 24 H 24 H Blood Pressure Pulse Oximetry 98 98 Oxygen Delivery Nasal Cannula Nasal Cannula Oxygen Flow Rate 2 2 03/29/24 23:54 03/30/24 00:00 03/30/24 02:00 Temperature 98.3 F Pulse Rate 75 74 82 Respiratory Rate 20 Blood Pressure 110/57 L Pulse Oximetry 98 Oxygen Delivery Oxygen Flow Rate 03/30/24 02:12 03/30/24 02:19 03/30/24 03:40 Temperature Pulse Rate 78 74 779 H Respiratory Rate 24 H 24 H 22 H Blood Pressure Pulse Oximetry 95 Oxygen Delivery Nasal Cannula Oxygen Flow Rate 3 03/30/24 04:00 03/30/24 04:00 03/30/24 06:00 Temperature 98.3 F Pulse Rate 81 77 84 Respiratory Rate 18 Blood Pressure 116/53 L Pulse Oximetry 95 Oxygen Delivery Oxygen Flow Rate 03/30/24 07:18 03/30/24 07:20 03/30/24 07:31 Temperature Pulse Rate 81 80 Respiratory Rate 24 H Blood Pressure Pulse Oximetry 98 Oxygen Delivery Nasal Cannula Oxygen Flow Rate 2 Intake/Output Intake/Output: Intake & Output 03/27/24 03/28/24 03/29/24 03/30/24 23:59 23:59 23:59 23:59 Intake Total 970 1300 1050 600 Output Total 650 500 800 700 Balance 320 800 250 -100 Meds/Results Medications: Active Medications Generic Name Dose Route Start Last Admin Trade Name Freq PRN Reason Stop Dose Admin Acetaminophen 1,000 mg 03/10/24 10:04 03/29/24 14:54 Acetaminophen 500 Mg Tablet PO 1,000 mg Q6H PRN Administration Mild Pain (1-3) or Fever Hydrocodone Bitart/Acetaminophen 1 tab 03/08/24 17:21 03/29/24 20:42 Hydrocodone/Acetaminophen (*Crx) 5-325 Mg Tablet PO 04/05/24 23:59 1 tab Q6H PRN Administration Pain Rated 4-6 Acetylcysteine 200 mg 03/22/24 20:00 03/30/24 07:15 Acetylcysteine 20% Inhal Soln 800 Mg/4 Ml Vial INHALATION 200 mg Q12HRT IAN Administration Alprazolam 0.25 mg 03/08/24 17:21 03/29/24 23:49 Alprazolam (*Crx) 0.25 Mg Tablet PO 04/05/24 23:59 0.25 mg HS PRN Administration Anxiety Benzocaine 1 lozenge 03/10/24 18:17 03/16/24 08:17 Benzocaine/Menthol (*Bkc) 18 Ea Lozenge PO 1 lozenge PRN PRN Administration Sore Throat Cyanocobalamin 1,000 mcg 03/09/24 09:00 03/29/24 08:51 Cyanocobalamin 1,000 Mcg Tablet PO 1,000 mcg DAILY IAN Administration Cyclobenzaprine HCl 5 mg 03/19/24 14:03 03/26/24 22:28 Cyclobenzaprine Hcl 5 Mg Tablet PO 5 mg Q8H PRN Administration Muscle Spasm Dextromethorphan Polistirix 60 mg 03/28/24 09:00 03/29/24 20:31 Dextromethorphan Polistirex 60 Mg/10 Ml Syringe PO 60 mg Q12HR IAN Administration Diclofenac Sodium 1 applic 03/10/24 10:04 03/27/24 00:50 Diclofenac Sodium 1% 100 Gm Gel (*Bkc) TOPICAL 1 applic QID PRN Administration joint pain Diclofenac Sodium 1 applic 03/19/24 17:00 03/29/24 20:32 Diclofenac Sodium 1% 100 Gm Gel (*Bkc) TOPICAL Not Given QID IAN Furosemide 20 mg 03/16/24 09:00 03/29/24 08:51 Furosemide 20 Mg Tablet PO 20 mg DAILY IAN Administration Gabapentin 300 mg 03/08/24 21:00 03/29/24 20:31 Gabapentin 300 Mg Capsule PO 300 mg Q12HR IAN Administration Guaifenesin 1,200 mg 03/13/24 12:50 03/29/24 20:31 Guaifenesin 12 Hr 600 Mg Tabcr PO 1,200 mg Q12HR IAN Administration Hydromorphone HCl 0.2 mg 03/21/24 11:31 03/21/24 11:54 Hydromorphone Hcl Inj (*Crx) 1 Mg/Ml Syr IV PUSH 0.2 mg Q6H PRN Administration Pain Rated 7-10 Cefepime HCl 2 gm in 50 mls @ 100 mls/hr 03/29/24 20:00 03/29/24 21:00 Maxipime 2 Gm/Ns 50 Ml IVPB Infused Q12H IAN Infusion Doxycycline Hyclate 100 mg in 100 mls @ 100 mls/hr 03/29/24 21:00 03/29/24 21:31 Vibramycin 100 Mg/Ns 100 Ml IVPB Infused Q12H IAN Infusion Levalbuterol HCl 1.25 mg 03/22/24 14:00 03/30/24 07:15 Levalbuterol Neb 1.25 Mg/3 Ml INHALATION 1.25 mg Q6HRT IAN Administration Melatonin 5 mg 03/15/24 21:00 03/29/24 20:31 Melatonin 5 Mg Tablet PO 5 mg HS IAN Administration Methimazole 5 mg 03/09/24 09:00 03/29/24 08:51 Methimazole 5 Mg Tab PO 5 mg DAILY IAN Administration Cinacalcet 15 Mg 0 each 03/10/24 09:00 03/29/24 08:51 Tablet PO 04/09/24 08:59 15 each DAILY IAN Administration Pantoprazole Sodium 40 mg 03/09/24 09:00 03/29/24 08:51 Pantoprazole 40 Mg Tablet PO 40 mg QAM IAN Administration Polyethylene Glycol 17 gm 03/22/24 09:00 03/29/24 08:52 Polyethylene Glycol 3350 17 Gm Powd.Pack PO 17 gm QAM IAN Administration Potassium Chloride 10 meq 03/08/24 21:00 03/29/24 20:31 Potassium Chloride 10 Meq Er Tablet PO 10 meq HS IAN Administration Simvastatin 10 mg 03/08/24 21:00 03/29/24 20:31 Simvastatin 10 Mg Tablet PO 10 mg HS IAN Administration Sotalol HCl 40 mg 03/27/24 14:00 03/29/24 08:51 Sotalol Hcl 40 Mg Tablet PO 40 mg DAILY IAN Administration Venlafaxine HCl 150 mg 03/09/24 09:00 03/29/24 08:51 Venlafaxine Hcl Xr 75 Mg Cap.Er.24h PO 150 mg DAILY IAN Administration Vitamin D 1,000 units 03/09/24 09:00 03/29/24 08:51 Cholecalciferol 1,000 Units Tablet PO 1,000 units DAILY [facility] Administration Warfarin Sodium 9 mg 03/11/24 17:00 03/13/24 17:40 Warfarin (*Pbkc) 3 Mg Tablet PO 9 mg DAILY@1700 [facility] Administration Warfarin Sodium 6 mg 03/22/24 17:00 03/28/24 16:53 Warfarin (*Pbkc) 3 Mg Tablet PO 6 mg DAILY@1700 [facility] Administration Radiology Results: ITS Impressions Chest/Abdomen/Pelvis CT 03/21/24 12:36 IMPRESSION: CHEST: 1. No acute cardiopulmonary pathology. 2. Compression fracture of T6. MRI evaluation advised. ABDOMEN/PELVIS: 1. Hematoma in the left anterior abdominal wall. 2. Constipation. Lexiscan Stress Test 03/22/24 12:28 IMPRESSION: 1. No definite ischemia or infarct. 2. Normal left ventricular ejection fraction measuring 56%. Lumbar Spine X-Ray 03/23/24 13:40 IMPRESSION: 1. Mild lumbar spondylosis. 2. Lumbar dextroscoliosis. Cervical Spine CT 03/24/24 15:01 IMPRESSION: 1. Moderate cervical spondylosis, stable from 11/13/2020. 2. Cervicothoracic levoscoliosis. Chest X-Ray 03/29/24 09:34 IMPRESSION: 1. Mild atelectasis at left lung base. 2. Cardiomegaly. Chest CTA 03/29/24 12:58 IMPRESSION: 1. Bilateral pneumonia in the upper lobes and lower lobes. 2. No pulmonary embolus. 3. Liver surface nodularity suspicious for cirrhosis. Labs Labs: Laboratory Results - last 24 hr 03/29/24 03/29/24 03/29/24 05:31 09:38 10:44 WBC RBC Hgb Hct MCV MCH MCHC RDW Plt Count MPV Immature Gran % (Auto) Neut % (Auto) Lymph % (Auto) [place] % (Auto) Eos % (Auto) Baso % (Auto) Lymph # (Auto) [place] # (Auto) Eos # (Auto) Baso # (Auto) Abs Immat Gran (auto) Absolute Neuts (auto) Absolute Nucleated RBC Total Counted Neutrophils % (Manual) Band Neutrophils % Lymphocytes % (Manual) Monocytes % (Manual) Eosinophils % (Manual) Nucleated RBC % Abs Neuts (Manual) Abs Lymphs (Manual) Abs Monocytes (Manual) Absolute Eos (Manual) Platelet Estimate Anisocytosis Ovalocytes Schistocytes PT 42.5 H D INR 4.4 Sodium Potassium Chloride Carbon Dioxide Anion Gap BUN Creatinine Estim Creat Clear Calc Estimated GFR Glucose Lactic Acid 1.4 Calcium Magnesium 1.5 L Total Bilirubin AST ALT Alkaline Phosphatase Total Protein Albumin Influenza A (RT-PCR) Negative Influenza B (RT-PCR) Negative RSV (RT-PCR) Negative SARS-CoV-2 RNA (RT-PCR) Negative 03/30/24 04:15 WBC 17.1 H RBC 2.88 L Hgb 9.6 L Hct 30.1 L MCV 104.5 H MCH 33.3 MCHC 31.9 L RDW 14.0 Plt Count 389 H MPV 11.9 H Immature Gran % (Auto) Not Reportable Neut % (Auto) Not Reportable Lymph % (Auto) Not Reportable [place] % (Auto) Not Reportable Eos % (Auto) Not Reportable Baso % (Auto) Not Reportable Lymph # (Auto) Not Reportable [place] # (Auto) Not Reportable Eos # (Auto) Not Reportable Baso # (Auto) Not Reportable Abs Immat Gran (auto) Not Reportable Absolute Neuts (auto) Not Reportable Absolute Nucleated RBC Not Reportable Total Counted 100 Neutrophils % (Manual) 76 H Band Neutrophils % 10 H Lymphocytes % (Manual) 3 L Monocytes % (Manual) 8 Eosinophils % (Manual) 3 Nucleated RBC % Not Reportable Abs Neuts (Manual) 14.70 H Abs Lymphs (Manual) 0.51 L Abs Monocytes (Manual) 1.36 H Absolute Eos (Manual) 0.51 H Platelet Estimate Adequate Anisocytosis 1+ Ovalocytes 1+ Schistocytes None seen PT 40.2 H INR 4.1 Sodium 133 L Potassium 3.7 Chloride 95 L Carbon Dioxide 32 H Anion Gap 6 BUN 18 H Creatinine 1.06 H Estim Creat Clear Calc 41 Estimated GFR 50 L Glucose 103 Lactic Acid Calcium 8.9 Magnesium 1.9 Total Bilirubin 0.8 AST 29 ALT 23 Alkaline Phosphatase 99 Total Protein 7.0 Albumin 3.0 L Influenza A (RT-PCR) Influenza B (RT-PCR) RSV (RT-PCR) SARS-CoV-2 RNA (RT-PCR)
[2024-03-30] MEDS: VENLAFAXINE HCL XR 75 MG CAP.ER.24H 150 MG PO (09:33)
[2024-03-30] MEDS: guaiFENesin 12 HR 600 MG TABCR 1200 MG PO ×2 (09:33→20:25)
[2024-03-30] MEDS: GABAPENTIN 300 MG CAPSULE PO ×2 (09:33→20:26)
[2024-03-30] MEDS: polyethylene glycoL 3350 17 GM POWD.PACK PO (09:33)
[2024-03-30] MEDS: CHOLECALCIFEROL 1,000 UNITS TABLET 1000 UNITS PO (09:33)
[2024-03-30] MEDS: PANTOPRAZOLE 40 MG TABLET PO (09:33)
[2024-03-30] MEDS: CINACALCET PO (09:34)
[2024-03-30] MEDS: DICLOFENAC SODIUM 1% 100 GM GEL (*BKC) 1 APPLIC TOPICAL ×3 (09:34→17:19)
[2024-03-30] MEDS: CYANOCOBALAMIN 1,000 MCG TABLET 1000 MCG PO (09:34)
[2024-03-30] MEDS: DEXTROMETHORPHAN POLISTIREX 60 MG/10 ML SYRINGE PO ×2 (09:34→20:25)
[2024-03-30] MEDS: SOTALOL HCL 40 MG TABLET PO (09:34)
[2024-03-30] MEDS: FUROSEMIDE 20 MG TABLET PO (09:35)
[2024-03-30] MEDS: methiMAzole 5 MG TAB PO (09:35)
[2024-03-30] MEDS: DOXYCYCLINE 100 MG/NS 100 ML 100 MG/100 ML BAG IVPB ×2 (09:36→20:24)
[2024-03-30] MEDS: CEFEPIME 2 GM/NS 50 ML 2 GM/50 ML BAG IVPB ×2 (09:36→20:21)
[2024-03-30] MEDS: ACETAMINOPHEN 500 MG TABLET 1000 MG PO (09:53)
--- NOTE | 2024-03-30 12:52 | P.PNIM_ITS ---
Progress Note: A&P Assessment and Plan (1) Mechanical heart valve present: Code(s): Z95.2 - Presence of prosthetic heart valve Status: Acute Assessment and Plan: Supratherapeutic INR 4.4 Hold warfarin Evidence of hematoma in the left anterior abdominal wall 3 x 2.5 cm monitor (2) Palpitations: Code(s): R00.2 - Palpitations Status: Acute Assessment and Plan: - Likely due to PAF with RVR. - Better after hydration and resuming home meds. (3) Acute kidney injury: Code(s): N17.9 - Acute kidney failure, unspecified Status: Acute Assessment and Plan: Ddx pre-renal vs poor PO intake vs meds vs other. s/p 500 bolus with tachycardia --Resumed lasix --Creatinine stable resolved (4) HTN (hypertension): Qualifiers: Hypertension type: primary hypertension Qualified Code(s): I10 - Essential (primary) hypertension Code(s): I10 - Essential (primary) hypertension Status: Acute Assessment and Plan: - Appears well controlled. - Continue metoprolol, changed from XL to IR for titration - Follow VS (5) Hyperlipidemia: Qualifiers: Hyperlipidemia type: mixed hyperlipidemia Qualified Code(s): E78.2 - Mixed hyperlipidemia Code(s): E78.5 - Hyperlipidemia, unspecified Status: Acute Assessment and Plan: * continue simvastatin (6) Shortness of breath: Code(s): R06.02 - Shortness of breath Status: Acute Assessment and Plan: from [place] continue antibiotics (7) Anemia: Code(s): D64.9 - Anemia, unspecified Status: Acute Assessment and Plan: Blood count trending down since admission but may be dilutional 14.2>8.9 Iron panel showing iron deficiency anemia, Total Iron and Tsat low. B12 636. LDH 245 --iron sucrose 1000mg --Follow CBC --If downtrending would need GI consult on chronic anticoagulation Gi plans for endoscopy when INR is below 2.5 and on heparin infusion (8) Heart failure, diastolic, acute on chronic: Code(s): I50.33 - Acute on chronic diastolic (congestive) heart failure Status: Acute Assessment and Plan: 08/24/23 Echo: TDS. EF 45%, biatrial enlargement, suspect (YADIRA 1.4 cm2), mod MR, mild-mod TR. s/p 500ml fluid bolus, now back on IV lasix NT-proBNP 10,000 Resume lasix, 20mg IV daily & increase as able TTE * Flipped back into A fib RVR overnight * Repeat EKG showing new LBBB--Cardiology was notified. * Mild troponin bump--likely demand ischemia * No significant finding in Lexiscan * monitor (9) Pneumonia: Code(s): J18.9 - Pneumonia, unspecified organism Status: Acute Assessment and Plan: CT chest done 03/30/[address] was obtained due to worsening leukocytosis and tachypnea HAP Patient completed initial Now on Cefepime and Doxycycline leukocytosis improving MRSA pending (10) Atrial fibrillation with RVR: Code(s): I48.91 - Unspecified atrial fibrillation Status: Acute Assessment and Plan: on Sotalol and Warfarin which is on hold due to supratherapeutic INR monitor Plan DVT prophylaxis on Warfarin whcih is on hold for elevated INR Subjective Date/time seen: 03/30/24 12:52 Interval history: Comfortable at bedside INR 4.1, still holding Coumadin Review of Systems Review of Systems: All systems reviewed & are unremarkable except as noted in HPI and below Constitutional: Constitutional: Reports as per HPI and Reports no additional constitutional complaints Eyes: Eyes: Reports as per HPI and Reports no additional eye complaints ENT: Reports system reviewed and no additional complaints, except as documented and Reports as per HPI Cardiovascular: Cardiovascular: Reports as per HPI and Reports no additional cardiovascular complaints Respiratory: Respiratory: Reports as per HPI and Reports no additional respiratory complaints Gastrointestinal: Gastrointestinal: Reports as per HPI and Reports no additional gastrointestinal complaints Genitourinary: Genitourinary: Reports no additional female genitourinary complaints and Reports as per HPI Musculoskeletal: Musculoskeletal: Reports no additional musculoskeletal com plaints and Reports as per HPI Integumentary/Breasts: Skin/Breast: Reports system reviewed and no additional complaints, except as docu and Reports as per HPI Neurologic: Reports system reviewed and no additional complaints, except as documented and Reports as per HPI Psychiatric: Psychiatric: Reports no additional psychiatric complaints and Reports as per HPI Exam Narrative: General: In no acute distress, well nourished Cardiac: Normal S1 and S2. NSR, No murmur, gallops or friction rubs, peripheral pulses intact. Respiratory: Lungs clear bilaterally , no adventitious lung sounds, currently on room air, raspy cough Gastrointestinal: soft, non-distended, non-tender, normoactive bowel sounds. : voiding without difficulty. Neuro: Alert and oriented x4 Objective Data Vital Signs Vital Signs: Vital Signs - 24 hr 03/29/24 13:50 03/29/24 13:57 03/29/24 14:00 Temperature Pulse Rate 86 81 82 Respiratory Rate 22 H 22 H Blood Pressure Pulse Oximetry Oxygen Delivery Oxygen Flow Rate 03/29/24 15:55 03/29/24 16:00 03/29/24 18:43 Temperature 100.7 F H Pulse Rate 77 75 73 Respiratory Rate 24 H Blood Pressure 110/54 L Pulse Oximetry 94 Oxygen Delivery Oxygen Flow Rate 03/29/24 19:56 03/29/24 20:00 03/29/24 20:06 Temperature 98.5 F Pulse Rate 67 73 Respiratory Rate 24 H Blood Pressure 116/40 L Pulse Oximetry 98 98 Oxygen Delivery Nasal Cannula Oxygen Flow Rate 2 03/29/24 20:06 03/29/24 20:19 03/29/24 20:20 Temperature Pulse Rate 71 74 74 Respiratory Rate 24 H 24 H 24 H Blood Pressure Pulse Oximetry 98 Oxygen Delivery Nasal Cannula Oxygen Flow Rate 2 03/29/24 22:00 03/29/24 23:45 03/29/24 23:54 Temperature 98.3 F Pulse Rate 63 63 75 Respiratory Rate 24 H 20 Blood Pressure 110/57 L Pulse Oximetry 98 98 Oxygen Delivery Nasal Cannula Oxygen Flow Rate 2 03/30/24 00:00 03/30/24 02:00 03/30/24 02:12 Temperature Pulse Rate 74 82 78 Respiratory Rate 24 H Blood Pressure Pulse Oximetry Oxygen Delivery Oxygen Flow Rate 03/30/24 02:19 03/30/24 03:40 03/30/24 04:00 Temperature Pulse Rate 74 779 H 81 Respiratory Rate 24 H 22 H Blood Pressure Pulse Oximetry 95 Oxygen Delivery Nasal Cannula Oxygen Flow Rate 3 03/30/24 04:00 03/30/24 06:00 03/30/24 07:18 Temperature 98.3 F Pulse Rate 77 84 81 Respiratory Rate 18 24 H Blood Pressure 116/53 L Pulse Oximetry 95 Oxygen Delivery Oxygen Flow Rate 03/30/24 07:20 03/30/24 07:31 03/30/24 08:00 Temperature 99.8 F H Pulse Rate 80 89 Respiratory Rate 28 H Blood Pressure 105/44 L Pulse Oximetry 98 97 Oxygen Delivery Nasal Cannula Oxygen Flow Rate 2 03/30/24 08:00 03/30/24 09:34 03/30/24 12:00 Temperature 99.5 F Pulse Rate 79 65 Respiratory Rate 24 H Blood Pressure 107/59 L Pulse Oximetry 95 96 Oxygen Delivery Nasal Cannula Oxygen Flow Rate 2 03/30/24 12:00 Temperature Pulse Rate Respiratory Rate Blood Pressure Pulse Oximetry 95 Oxygen Delivery Nasal Cannula Oxygen Flow Rate 2 Intake/Output Intake/Output: Intake & Output 03/27/24 03/28/24 03/29/24 03/30/24 23:59 23:59 23:59 23:59 Intake Total 970 1300 1050 820 Output Total 650 500 800 700 Balance 320 800 250 120 Meds/Results Medications: Active Medications Generic Name Dose Route Start Last Admin Trade Name Freq PRN Reason Stop Dose Admin Acetaminophen 1,000 mg 03/10/24 10:04 03/30/24 09:53 Acetaminophen 500 Mg Tablet PO 1,000 mg Q6H PRN Administration Mild Pain (1-3) or Fever Hydrocodone Bitart/Acetaminophen 1 tab 03/08/24 17:21 03/29/24 20:42 Hydrocodone/Acetaminophen (*Crx) 5-325 Mg Tablet PO 04/05/24 23:59 1 tab Q6H PRN Administration Pain Rated 4-6 Acetylcysteine 200 mg 03/22/24 20:00 03/30/24 07:15 Acetylcysteine 20% Inhal Soln 800 Mg/4 Ml Vial INHALATION 200 mg Q12HRT IAN Administration Alprazolam 0.25 mg 03/08/24 17:21 03/29/24 23:49 Alprazolam (*Crx) 0.25 Mg Tablet PO 04/05/24 23:59 0.25 mg HS PRN Administration Anxiety Benzocaine 1 lozenge 03/10/24 18:17 03/16/24 08:17 Benzocaine/Menthol (*Bkc) 18 Ea Lozenge PO 1 lozenge PRN PRN Administration Sore Throat Cyanocobalamin 1,000 mcg 03/09/24 09:00 03/30/24 09:34 Cyanocobalamin 1,000 Mcg Tablet PO 1,000 mcg DAILY IAN Administration Cyclobenzaprine HCl 5 mg 03/19/24 14:03 03/26/24 22:28 Cyclobenzaprine Hcl 5 Mg Tablet PO 5 mg Q8H PRN Administration Muscle Spasm Dextromethorphan Polistirix 60 mg 03/28/24 09:00 03/30/24 09:34 Dextromethorphan Polistirex 60 Mg/10 Ml Syringe PO 60 mg Q12HR IAN Administration Diclofenac Sodium 1 applic 03/10/24 10:04 03/27/24 00:50 Diclofenac Sodium 1% 100 Gm Gel (*Bkc) TOPICAL 1 applic QID PRN Administration joint pain Diclofenac Sodium 1 applic 03/19/24 17:00 03/30/24 09:34 Diclofenac Sodium 1% 100 Gm Gel (*Bkc) TOPICAL 1 applic QID IAN Administration Furosemide 20 mg 03/16/24 09:00 03/30/24 09:35 Furosemide 20 Mg Tablet PO 20 mg DAILY IAN Administration Gabapentin 300 mg 03/08/24 21:00 03/30/24 09:33 Gabapentin 300 Mg Capsule PO 300 mg Q12HR IAN Administration Guaifenesin 1,200 mg 03/13/24 12:50 03/30/24 09:33 Guaifenesin 12 Hr 600 Mg Tabcr PO 1,200 mg Q12HR IAN Administration Hydromorphone HCl 0.2 mg 03/21/24 11:31 03/21/24 11:54 Hydromorphone Hcl Inj (*Crx) 1 Mg/Ml Syr IV PUSH 0.2 mg Q6H PRN Administration Pain Rated 7-10 Cefepime HCl 2 gm in 50 mls @ 100 mls/hr 03/29/24 20:00 03/30/24 09:36 Maxipime 2 Gm/Ns 50 Ml IVPB 100 mls/hr Q12H IAN Administration Doxycycline Hyclate 100 mg in 100 mls @ 100 mls/hr 03/29/24 21:00 03/30/24 09:36 Vibramycin 100 Mg/Ns 100 Ml IVPB 100 mls/hr Q12H IAN Administration Levalbuterol HCl 1.25 mg 03/22/24 14:00 03/30/24 07:15 Levalbuterol Neb 1.25 Mg/3 Ml INHALATION 1.25 mg Q6HRT IAN Administration Melatonin 5 mg 03/15/24 21:00 03/29/24 20:31 Melatonin 5 Mg Tablet PO 5 mg HS IAN Administration Methimazole 5 mg 03/09/24 09:00 03/30/24 09:35 Methimazole 5 Mg Tab PO 5 mg DAILY IAN Administration Cinacalcet 15 Mg 0 each 03/10/24 09:00 03/30/24 09:34 Tablet PO 04/09/24 08:59 15 each DAILY IAN Administration Pantoprazole Sodium 40 mg 03/09/24 09:00 03/30/24 09:33 Pantoprazole 40 Mg Tablet PO 40 mg QAM IAN Administration Polyethylene Glycol 17 gm 03/22/24 09:00 03/30/24 09:33 Polyethylene Glycol 3350 17 Gm Powd.Pack PO 17 gm QAM IAN Administration Potassium Chloride 10 meq 03/08/24 21:00 03/29/24 20:31 Potassium Chloride 10 Meq Er Tablet PO 10 meq HS IAN Administration Simvastatin 10 mg 03/08/24 21:00 03/29/24 20:31 Simvastatin 10 Mg Tablet PO 10 mg HS IAN Administration Sotalol HCl 40 mg 03/27/24 14:00 03/30/24 09:34 Sotalol Hcl 40 Mg Tablet PO 40 mg DAILY IAN Administration Venlafaxine HCl 150 mg 03/09/24 09:00 03/30/24 09:33 Venlafaxine Hcl Xr 75 Mg Cap.Er.24h PO 150 mg DAILY IAN Administration Vitamin D 1,000 units 03/09/24 09:00 03/30/24 09:33 Cholecalciferol 1,000 Units Tablet PO 1,000 units DAILY IAN Administration Warfarin Sodium 9 mg 03/11/24 17:00 03/13/24 17:40 Warfarin (*Pbkc) 3 Mg Tablet PO 9 mg DAILY@1700 [facility] Administration Warfarin Sodium 6 mg 03/22/24 17:00 03/28/24 16:53 Warfarin (*Pbkc) 3 Mg Tablet PO 6 mg DAILY@1700 [facility] Administration Radiology Results: ITS Impressions Chest/Abdomen/Pelvis CT 03/21/24 12:36 IMPRESSION: CHEST: 1. No acute cardiopulmonary pathology. 2. Compression fracture of T6. MRI evaluation advised. ABDOMEN/PELVIS: 1. Hematoma in the left anterior abdominal wall. 2. Constipation. Lexiscan Stress Test 03/22/24 12:28 IMPRESSION: 1. No definite ischemia or infarct. 2. Normal left ventricular ejection fraction measuring 56%. Lumbar Spine X-Ray 03/23/24 13:40 IMPRESSION: 1. Mild lumbar spondylosis. 2. Lumbar dextroscoliosis. Cervical Spine CT 03/24/24 15:01 IMPRESSION: 1. Moderate cervical spondylosis, stable from 11/13/2020. 2. Cervicothoracic levoscoliosis. Chest X-Ray 03/29/24 09:34 IMPRESSION: 1. Mild atelectasis at left lung base. 2. Cardiomegaly. Chest CTA 03/29/24 12:58 IMPRESSION: 1. Bilateral pneumonia in the upper lobes and lower lobes. 2. No pulmonary embolus. 3. Liver surface nodularity suspicious for cirrhosis. Labs Labs: Laboratory Results - last 24 hr 03/30/24 04:15 WBC 17.1 H RBC 2.88 L Hgb 9.6 L Hct 30.1 L MCV 104.5 H MCH 33.3 MCHC 31.9 L RDW 14.0 Plt Count 389 H MPV 11.9 H Immature Gran % (Auto) Not Reportable Neut % (Auto) Not Reportable Lymph % (Auto) Not Reportable [place] % (Auto) Not Reportable Eos % (Auto) Not Reportable Baso % (Auto) Not Reportable Lymph # (Auto) Not Reportable [place] # (Auto) Not Reportable Eos # (Auto) Not Reportable Baso # (Auto) Not Reportable Abs Immat Gran (auto) Not Reportable Absolute Neuts (auto) Not Reportable Absolute Nucleated RBC Not Reportable Total Counted 100 Neutrophils % (Manual) 76 H Band Neutrophils % 10 H Lymphocytes % (Manual) 3 L Monocytes % (Manual) 8 Eosinophils % (Manual) 3 Nucleated RBC % Not Reportable Abs Neuts (Manual) 14.70 H Abs Lymphs (Manual) 0.51 L Abs Monocytes (Manual) 1.36 H Absolute Eos (Manual) 0.51 H Platelet Estimate Adequate Anisocytosis 1+ Ovalocytes 1+ Schistocytes None seen PT 40.2 H INR 4.1 Sodium 133 L Potassium 3.7 Chloride 95 L Carbon Dioxide 32 H Anion Gap 6 BUN 18 H Creatinine 1.06 H Estim Creat Clear Calc 41 Estimated GFR 50 L Glucose 103 Calcium 8.9 Magnesium 1.9 Total Bilirubin 0.8 AST 29 ALT 23 Alkaline Phosphatase 99 Total Protein 7.0 Albumin 3.0 L Quality VTE Prophylaxis VTE prophylaxis: pharmacologic ordered
[2024-03-30 14:26] LABS: IFOB Positive Control Positive; Immunochemical Fecal Occult Bl Positive (N)
[2024-03-30] MEDS: HYDROcodone/acetaminophen (*CRX) 5-325 MG TABLET 1 TAB PO (20:26)
[2024-03-30] MEDS: POTASSIUM CHLORIDE 10 MEQ ER TABLET PO (20:26)
[2024-03-30] MEDS: SIMVASTATIN 10 MG TABLET PO (20:26)
[2024-03-30] MEDS: MELATONIN 5 MG TABLET PO (20:26)
[2024-03-31] VITALS (19 sets, daily range): BP systolic 100–121; BP diastolic 45–78; PULSE 63–118; RESP 16–29; TEMP 36.4–37.3; O2SAT 94–100
[2024-03-31] MEDS: LEVALBUTEROL NEB 1.25 MG/3 ML INHALATION ×3 (01:25→14:12)
[2024-03-31 04:33] LABS: Basophils Percent Auto 0.4 % (0.2-1.2); Eosinophils Absolute Auto 0.3 K/mm3 (0-0.3); Eosinophils Percent Auto 2.6 % (0-4.4); Hematocrit 26.3 % (37.0-47.0); Hemoglobin 8.2 g/dL (12.0-15.0); Immature Granulocyte Absolute 0.09 K/mm3 (0.00-0.031); Immature Granulocyte Percent A 0.9 % (0-0.5); Lymphocytes Absolute Auto 0.71 K/mm3 (0.9-3.2); Mean Corpuscular HGB Conc 31.2 g/dl (32-36); Mean Corpuscular Hemoglobin 32.5 pg (26-34); Mean Corpuscular Volume 104.4 fl (80-100); Monocytes Absolute Auto 1.2 K/mm3 (0.1-0.6); Monocytes Percent Auto 11.3 % (2.6-8.5); Neutrophils Absolute Auto 7.9 K/mm3 (1.3-6.7); Neutrophils Percent Auto 77.8 % (45.5-73.1); Platelet Count Result 346 k/mm3 (150-375); Red Blood Count 2.52 M/mm3 (4.2-5.4); Red Cell Distribution Width 14.1 % (11.5-14.5); White Blood Count 10.2 K/mm3 (4.5-10.0)
[2024-03-31 04:46] LABS: INR 4.3; Prothrombin Time 41.3 Seconds (11.1-14.7)
[2024-03-31 04:49] LABS: Alanine Aminotransferase 20 U/L (6-35); Albumin Level 2.7 g/dL (3.5-5.1); Alkaline Phosphatase 93 U/L (38-126); Anion Gap 3 mmol/L (4-12); Aspartate Amino Transferase 23 U/L (14-36); Bilirubin,Total 0.7 mg/dL (0.2-1.3); Blood Urea Nitrogen 21 mg/dL (7-17); Calcium 8.8 mg/dL (8.4-10.2); Carbon Dioxide 31 mmol/L (22-30); Chloride 98 mmol/L (98-107); Estimated CRCL calculation 34 ml/min; Estimated Glomerular Filt Rate 40; Glucose 65 mg/dL (65-110); Magnesium 1.9 mg/dL (1.6-2.3); Sodium 132 mmol/L (137-145)
[2024-03-31] MEDS: ACETYLCYSTEINE 20% INHAL SOLN 800 MG/4 ML VIAL 200 MG INHALATION (07:42)
[2024-03-31 08:05] LABS: Glucose Point of Care 79 mg/dl (65-105)
[2024-03-31] MEDS: CEFEPIME 2 GM/NS 50 ML 2 GM/50 ML BAG IVPB ×2 (08:19→21:16)
[2024-03-31] MEDS: SOTALOL HCL 40 MG TABLET PO (08:20)
[2024-03-31] MEDS: FUROSEMIDE 20 MG TABLET PO (08:21)
[2024-03-31] MEDS: GABAPENTIN 300 MG CAPSULE PO ×2 (08:21→21:19)
[2024-03-31] MEDS: VENLAFAXINE HCL XR 75 MG CAP.ER.24H 150 MG PO (08:21)
[2024-03-31] MEDS: guaiFENesin 12 HR 600 MG TABCR 1200 MG PO ×2 (08:21→21:19)
[2024-03-31] MEDS: CYANOCOBALAMIN 1,000 MCG TABLET 1000 MCG PO (08:22)
[2024-03-31] MEDS: CHOLECALCIFEROL 1,000 UNITS TABLET 1000 UNITS PO (08:22)
[2024-03-31] MEDS: PANTOPRAZOLE 40 MG TABLET PO (08:22)
[2024-03-31] MEDS: DOXYCYCLINE 100 MG/NS 100 ML 100 MG/100 ML BAG IVPB ×2 (08:22→21:17)
[2024-03-31] MEDS: methiMAzole 5 MG TAB PO (08:22)
[2024-03-31] MEDS: DICLOFENAC SODIUM 1% 100 GM GEL (*BKC) 1 APPLIC TOPICAL ×4 (08:23→21:17)
[2024-03-31] MEDS: DEXTROMETHORPHAN POLISTIREX 60 MG/10 ML SYRINGE PO ×2 (09:51→21:16)
[2024-03-31] MEDS: CINACALCET PO (09:57)
[2024-03-31] MEDS: HYDROcodone/acetaminophen (*CRX) 5-325 MG TABLET 1 TAB PO ×2 (10:02→18:57)
--- NOTE | 2024-03-31 14:00 | PCSTNOTE ---
Please refer to the Bedside Swallow Evaluation in the EMR. Please note, silent aspiration cannot be ruled out at bedside. The above A & Ox4 pt admitted > 3 weeks ago for heart issues was referred to ST for a Bedside Swallow Evaluation. Lung CT completed 03/30 revealed bilateral pneumonia. RN reports observing pt having difficulty swallowing with a weak cough. Pt was on a regular diet but was made NPO once swallow difficulty was exhibited. The pt was sitting upright at the bedside in a chair. Upon answering questions, the pt's vocal quality was found to be hoarse & breathy. Oral mucosa was dry. She was wearing upper dentures; denied having lower dentures and reported being able to masticate efficiently without lower dentition. Pt was tested with controlled amounts of ice chips, 5ml water, and 2 tsp pudding via a spoon. The oral stages were within normal limits; oral transit was timely without leakage or pocketing. Upon triggering the pharyngeal swallow, the swallow reflex appeared timely but the adequacy of laryngeal elevation was questionable. Pt exhibited an intermittent and delayed subtle cough and both the thin liquid and pudding trials. At that time the testing was stopped in order to defer to an MBS for a more accurate assessment of swallow ability. Impression: suspect some degree of dysphagia. Recommending an MBS to further assess swallow ability and to determine a safe diet & accurate POC
[2024-03-31 14:04] LABS: MRSA (PCR) NOT DETECTED (NOT DETECTE)
--- NOTE | 2024-03-31 14:19 | PCPTNOTE ---
On 03/31/24, the student, PADMA Alvarez, provided care and completed [facility] documentation on this patient. I have reviewed the student's documentation and agree with the findings.
--- NOTE | 2024-03-31 14:34 | PM.IMPN ---
Progress Note: A&P Assessment and Plan (1) Mechanical heart valve present: Code(s): Z95.2 - Presence of prosthetic heart valve Status: Acute Assessment and Plan: Supratherapeutic INR 4.3 Hold warfarin Evidence of hematoma in the left anterior abdominal wall 3 x 2.5 cm monitor (2) Palpitations: Code(s): R00.2 - Palpitations Status: Acute Assessment and Plan: - Likely due to PAF with RVR. - Better after hydration and resuming home meds. (3) Acute kidney injury: Code(s): N17.9 - Acute kidney failure, unspecified Status: Acute Assessment and Plan: Ddx pre-renal vs poor PO intake vs meds vs other. s/p 500 bolus with tachycardia --Resumed lasix --Creatinine stable resolved (4) HTN (hypertension): Qualifiers: Hypertension type: primary hypertension Qualified Code(s): I10 - Essential (primary) hypertension Code(s): I10 - Essential (primary) hypertension Status: Acute Assessment and Plan: - Appears well controlled. - Continue metoprolol, changed from XL to IR for titration - Follow VS (5) Hyperlipidemia: Qualifiers: Hyperlipidemia type: mixed hyperlipidemia Qualified Code(s): E78.2 - Mixed hyperlipidemia Code(s): E78.5 - Hyperlipidemia, unspecified Status: Acute Assessment and Plan: continue simvastatin (6) Shortness of breath: Code(s): R06.02 - Shortness of breath Status: Acute Assessment and Plan: from p[place] continue antibiotics (7) Anemia: Code(s): D64.9 - Anemia, unspecified Status: Acute Assessment and Plan: Blood count trending down since admission but may be dilutional 14.2>8.2 Iron panel showing iron deficiency anemia, Total Iron and Tsat low. B12 636. LDH 245 --iron sucrose 1000mg monitor H and H Gi plans for endoscopy when INR is below 2.5 and on heparin infusion (8) Heart failure, diastolic, acute on chronic: Code(s): I50.33 - Acute on chronic diastolic (congestive) heart failure Status: Acute Assessment and Plan: 08/24/23 Echo: TDS. EF 45%, biatrial enlargement, suspect (YADIRA 1.4 cm2), mod MR, mild-mod TR. s/p 500ml fluid bolus, now back on IV lasix NT-proBNP 10,000 Resume lasix, 20mg IV daily & increase as able TTE Flipped back into A fib RVR overnight Repeat EKG showing new LBBB--Cardiology was notified. Mild troponin bump--likely demand ischemia No significant finding in Lexiscan monitor (9) Pneumonia: Code(s): J18.9 - Pneumonia, unspecified organism Status: Acute Assessment and Plan: CT chest done 03/30/[address] was obtained due to worsening leukocytosis and tachypnea HAP Patient completed initial Day 3 on Cefepime and Doxycycline leukocytosis resolving MRSA negative (10) Atrial fibrillation with RVR: Code(s): I48.91 - Unspecified atrial fibrillation Status: Acute Assessment and Plan: on Sotalol and Warfarin which is on hold due to supratherapeutic INR monitor Plan Dysphagia Speech evaluated and recommended diet adjustment DVT prophylaxis on Warfarin which is on hold for elevated INR Subjective Date/time seen: 03/31/24 14:34 Interval history: Comfortable at bedside INR 4.1, still holding Coumadin Review of Systems Review of Systems: All systems reviewed & are unremarkable except as noted in HPI and below Constitutional: Constitutional: Reports as per HPI and Reports no additional constitutional complaints Eyes: Eyes: Reports as per HPI and Reports no additional eye complaints ENT: Reports system reviewed and no additional complaints, except as documented and Reports as per HPI Cardiovascular: Cardiovascular: Reports as per HPI and Reports no additional cardiovascular complaints Respiratory: Respiratory: Reports as per HPI and Reports no additional respiratory complaints Gastrointestinal: Gastrointestinal: Reports as per HPI and Reports no additional gastrointestinal complaints Genitourinary: Genitourinary: Reports no additional female genitourinary complaints and Reports as per HPI Musculoskeletal: Musculoskeletal: Reports no additional musculoskeletal complaints and Reports as per HPI Integumentary/Breasts: Skin/Breast: Reports system reviewed and no additional complaints, except as docu and Reports as per HPI Neurologic: Reports system reviewed and no additional complaints, except as documented and Reports as per HPI Psychiatric: Psychiatric: Reports no additional psychiatric complaints and Reports as per HPI Exam Narrative: General: In no acute distress, well nourished Cardiac: Normal S1 and S2. NSR, No murmur, gallops or friction rubs, peripheral pulses intact. Respiratory: Lungs clear bilaterally , no adventitious lung sounds, currently on room air, raspy cough Gastrointestinal: soft, non-distended, non-tender, normoactive bowel sounds. : voiding without difficulty. Neuro: Alert and oriented x4 Objective Data Vital Signs Vital Signs: Vital Signs - 24 hr 03/30/24 16:00 03/30/24 16:00 03/30/24 16:00 Temperature 97.8 F Pulse Rate 62 70 Respiratory Rate 26 H Blood Pressure 113/48 L Pulse Oximetry 90 90 Oxygen Delivery Nasal Cannula Oxygen Flow Rate 2 Fraction of Inspired Oxygen 03/30/24 17:59 03/30/24 19:38 03/30/24 19:38 Temperature Pulse Rate 74 74 Respiratory Rate 22 H Blood Pressure Pulse Oximetry 98 Oxygen Delivery Nasal Cannula Oxygen Flow Rate 2 Fraction of Inspired Oxygen 28 03/30/24 19:59 03/30/24 20:00 03/30/24 20:01 Temperature 98.4 F Pulse Rate 73 71 75 Respiratory Rate 20 21 H Blood Pressure 122/54 L Pulse Oximetry 100 Oxygen Delivery Oxygen Flow Rate Fraction of Inspired Oxygen 03/30/24 20:30 03/30/24 22:00 03/31/24 00:00 Temperature Pulse Rate 75 71 68 Respiratory Rate 21 H 20 Blood Pressure Pulse Oximetry 100 96 Oxygen Delivery Nasal Cannula Nasal Cannula Oxygen Flow Rate 2 2 Fraction of Inspired Oxygen 03/31/24 00:00 03/31/24 00:00 03/31/24 01:25 Temperature 98.1 F Pulse Rate 77 73 68 Respiratory Rate 20 20 Blood Pressure 100/45 L Pulse Oximetry 94 Oxygen Delivery Oxygen Flow Rate Fraction of Inspired Oxygen 03/31/24 01:36 03/31/24 02:00 03/31/24 04:00 Temperature Pulse Rate 67 68 64 Respiratory Rate 20 20 Blood Pressure Pulse Oximetry 99 Oxygen Delivery Nasal Cannula Oxygen Flow Rate 2 Fraction of Inspired Oxygen 03/31/24 04:00 03/31/24 04:00 03/31/24 06:00 Temperature 98.4 F Pulse Rate 65 64 64 Respiratory Rate 18 Blood Pressure 110/45 L Pulse Oximetry 98 Oxygen Delivery Oxygen Flow Rate Fraction of Inspired Oxygen 03/31/24 07:31 03/31/24 07:43 03/31/24 07:43 Temperature 97.5 F L Pulse Rate 63 69 Respiratory Rate 20 20 Blood Pressure 121/65 Pulse Oximetry 98 96 Oxygen Delivery Nasal Cannula Oxygen Flow Rate 2 Fraction of Inspired Oxygen 03/31/24 07:53 03/31/24 08:00 03/31/24 08:00 Temperature Pulse Rate 64 64 70 Respiratory Rate 20 20 Blood Pressure Pulse Oximetry 96 Oxygen Delivery Nasal Cannula Oxygen Flow Rate 2 Fraction of Inspired Oxygen 03/31/24 10:00 03/31/24 11:19 03/31/24 12:00 Temperature 98.4 F Pulse Rate 71 65 65 Respiratory Rate 22 H 22 H Blood Pressure 113/46 L Pulse Oximetry 100 100 Oxygen Delivery Nasal Cannula Oxygen Flow Rate 2 Fraction of Inspired Oxygen 03/31/24 14:14 03/31/24 14:23 Temperature Pulse Rate 66 66 Respiratory Rate 20 20 Blood Pressure Pulse Oximetry Oxygen Delivery Oxygen Flow Rate Fraction of Inspired Oxygen Intake/Output Intake/Output: Intake & Output 03/28/24 03/29/24 03/30/24 03/31/24 23:59 23:59 23:59 23:59 Intake Total 1300 1050 2200 240 Output Total 286 679 1437 50 Balance 800 250 850 190 Meds/Results Medications: Active Medications Generic Name Dose Route Start Last Admin Trade Name Freq PRN Reason Stop Dose Admin Acetaminophen 1,000 mg 03/10/24 10:04 03/30/24 09:53 Acetaminophen 500 Mg Tablet PO 1,000 mg Q6H PRN Administration Mild Pain (1-3) or Fever Hydrocodone Bitart/Acetaminophen 1 tab 03/08/24 17:21 03/31/24 10:02 Hydrocodone/Acetaminophen (*Crx) 5-325 Mg Tablet PO 04/05/24 23:59 1 tab Q6H PRN Administration Pain Rated 4-6 Acetylcysteine 200 mg 03/22/24 20:00 03/31/24 07:42 Acetylcysteine 20% Inhal Soln 800 Mg/4 Ml Vial INHALATION 200 mg Q12HRT IAN Administration Alprazolam 0.25 mg 03/08/24 17:21 03/29/24 23:49 Alprazolam (*Crx) 0.25 Mg Tablet PO 04/05/24 23:59 0.25 mg HS PRN Administration Anxiety Benzocaine 1 lozenge 03/10/24 18:17 03/16/24 08:17 Benzocaine/Menthol (*Bkc) 18 Ea Lozenge PO 1 lozenge PRN PRN Administration Sore Throat Cyanocobalamin 1,000 mcg 03/09/24 09:00 03/31/24 08:22 Cyanocobalamin 1,000 Mcg Tablet PO 1,000 mcg DAILY IAN Administration Cyclobenzaprine HCl 5 mg 03/19/24 14:03 03/26/24 22:28 Cyclobenzaprine Hcl 5 Mg Tablet PO 5 mg Q8H PRN Administration Muscle Spasm Dextromethorphan Polistirix 60 mg 03/28/24 09:00 03/31/24 09:51 Dextromethorphan Polistirex 60 Mg/10 Ml Syringe PO 60 mg Q12HR IAN Administration Diclofenac Sodium 1 applic 03/10/24 10:04 03/27/24 00:50 Diclofenac Sodium 1% 100 Gm Gel (*Bkc) TOPICAL 1 applic QID PRN Administration joint pain Diclofenac Sodium 1 applic 03/19/24 17:00 03/31/24 08:23 Diclofenac Sodium 1% 100 Gm Gel (*Bkc) TOPICAL 1 applic QID IAN Administration Furosemide 20 mg 03/16/24 09:00 03/31/24 08:21 Furosemide 20 Mg Tablet PO 20 mg DAILY IAN Administration Gabapentin 300 mg 03/08/24 21:00 03/31/24 08:21 Gabapentin 300 Mg Capsule PO 300 mg Q12HR IAN Administration Guaifenesin 1,200 mg 03/13/24 12:50 03/31/24 08:21 Guaifenesin 12 Hr 600 Mg Tabcr PO 1,200 mg Q12HR IAN Administration Hydromorphone HCl 0.2 mg 03/21/24 11:31 03/21/24 11:54 Hydromorphone Hcl Inj (*Crx) 1 Mg/Ml Syr IV PUSH 0.2 mg Q6H PRN Administration Pain Rated 7-10 Cefepime HCl 2 gm in 50 mls @ 100 mls/hr 03/29/24 20:00 03/31/24 08:19 Maxipime 2 Gm/Ns 50 Ml IVPB 100 mls/hr Q12H IAN Administration Doxycycline Hyclate 100 mg in 100 mls @ 100 mls/hr 03/29/24 21:00 03/31/24 08:22 Vibramycin 100 Mg/Ns 100 Ml IVPB 100 mls/hr Q12H IAN Administration Levalbuterol HCl 1.25 mg 03/22/24 14:00 03/31/24 14:12 Levalbuterol Neb 1.25 Mg/3 Ml INHALATION 1.25 mg Q6HRT IAN Administration Melatonin 5 mg 03/15/24 21:00 03/30/24 20:26 Melatonin 5 Mg Tablet PO 5 mg HS IAN Administration Methimazole 5 mg 03/09/24 09:00 03/31/24 08:22 Methimazole 5 Mg Tab PO 5 mg DAILY IAN Administration Cinacalcet 15 Mg 0 each 03/10/24 09:00 03/31/24 09:57 Tablet PO 04/09/24 08:59 15 each DAILY IAN Administration Pantoprazole Sodium 40 mg 03/09/24 09:00 03/31/24 08:22 Pantoprazole 40 Mg Tablet PO 40 mg QAM IAN Administration Polyethylene Glycol 17 gm 03/22/24 09:00 03/31/24 08:25 Polyethylene Glycol 3350 17 Gm Powd.Pack PO Not Given QAM IAN Potassium Chloride 10 meq 03/08/24 21:00 03/30/24 20:26 Potassium Chloride 10 Meq Er Tablet PO 10 meq HS IAN Administration Simvastatin 10 mg 03/08/24 21:00 03/30/24 20:26 Simvastatin 10 Mg Tablet PO 10 mg HS IAN Administration Sotalol HCl 40 mg 03/27/24 14:00 03/31/24 08:20 Sotalol Hcl 40 Mg Tablet PO 40 mg DAILY IAN Administration Venlafaxine HCl 150 mg 03/09/24 09:00 03/31/24 08:21 Venlafaxine Hcl Xr 75 Mg Cap.Er.24h PO 150 mg DAILY IAN Administration Vitamin D 1,000 units 03/09/24 09:00 03/31/24 08:22 Cholecalciferol 1,000 Units Tablet PO 1,000 units DAILY INA Administration Warfarin Sodium 9 mg 03/11/24 17:00 03/13/24 17:40 Warfarin (*Pbkc) 3 Mg Tablet PO 9 mg DAILY@1700 IAN Administration Warfarin Sodium 6 mg 03/22/24 17:00 03/28/24 16:53 Warfarin (*Pbkc) 3 Mg Tablet PO 6 mg DAILY@1700 IAN Administration Radiology Results: ITS Impressions Chest/Abdomen/Pelvis CT 03/21/24 12:36 IMPRESSION: CHEST: 1. No acute cardiopulmonary pathology. 2. Compression fracture of T6. MRI evaluation advised. ABDOMEN/PELVIS: 1. Hematoma in the left anterior abdominal wall. 2. Constipation. Lexiscan Stress Test 03/22/24 12:28 IMPRESSION: 1. No definite ischemia or infarct. 2. Normal left ventricular ejection fraction measuring 56%. Lumbar Spine X-Ray 03/23/24 13:40 IMPRESSION: 1. Mild lumbar spondylosis. 2. Lumbar dextroscoliosis. Cervical Spine CT 03/24/24 15:01 IMPRESSION: 1. Moderate cervical spondylosis, stable from 11/13/2020. 2. Cervicothoracic levoscoliosis. Chest X-Ray 03/29/24 09:34 IMPRESSION: 1. Mild atelectasis at left lung base. 2. Cardiomegaly. Chest CTA 03/29/24 12:58 IMPRESSION: 1. Bilateral pneumonia in the upper lobes and lower lobes. 2. No pulmonary embolus. 3. Liver surface nodularity suspicious for cirrhosis. Labs Labs: Laboratory Results - last 24 hr 03/31/24 03/31/24 03/31/24 04:09 08:02 12:45 WBC 10.2 H RBC 2.52 L Hgb 8.2 L Hct 26.3 L MCV 104.4 H MCH 32.5 MCHC 31.2 L RDW 14.1 Plt Count 346 MPV 12.0 H Immature Gran % (Auto) 0.9 H Neut % (Auto) 77.8 H Lymph % (Auto) 7.0 L [place] % (Auto) 11.3 H Eos % (Auto) 2.6 Baso % (Auto) 0.4 Lymph # (Auto) 0.71 L [place] # (Auto) 1.2 H Eos # (Auto) 0.3 Baso # (Auto) 0.0 Abs Immat Gran (auto) 0.09 H Absolute Neuts (auto) 7.9 H Absolute Nucleated RBC 0.000 Nucleated RBC % 0.0 PT 41.3 H INR 4.3 Sodium 132 L Potassium 4.0 Chloride 98 Carbon Dioxide 31 H Anion Gap 3 L BUN 21 H Creatinine 1.30 H Estim Creat Clear Calc 34 Estimated GFR 40 L Glucose 65 POC Capillary Glucose 79 Calcium 8.8 Magnesium 1.9 Total Bilirubin 0.7 AST 23 ALT 20 Alkaline Phosphatase 93 Total Protein 6.0 L Albumin 2.7 L Nasal MRSA (PCR) Not detected Quality VTE Prophylaxis VTE prophylaxis: pharmacologic ordered
--- NOTE | 2024-03-31 18:30 | PC.NURSE ---
This patient, Radha Huynh, was admitted to 3 [facility] Surg Room 303-01. Patient/family oriented to hospital policies and general routines including ID bracelet, bed and alarms, visiting hours, pain management, procedures, bathroom and other care routines, personal items, smoking policy, room service/diet, and visiting hours. Information on how to activate the Rapid Response Team has been discussed. Patient/Family are encouraged to report perceived risks to care and to ask questions if they do not understand what they are told or what they should do.
[2024-03-31 20:43] LABS: Glucose Point of Care 131 mg/dl (65-105)
[2024-03-31] MEDS: ALPRAZolam (*CRX) 0.25 MG TABLET PO (21:18)
[2024-03-31] MEDS: SIMVASTATIN 10 MG TABLET PO (21:18)
[2024-03-31] MEDS: MELATONIN 5 MG TABLET PO (21:18)
[2024-03-31] MEDS: POTASSIUM CHLORIDE 10 MEQ ER TABLET PO (21:18)
[2024-03-31] MEDS: ACETAMINOPHEN 500 MG TABLET 1000 MG PO (21:19)
[2024-03-31] MEDS: CYCLOBENZAPRINE HCL 5 MG TABLET PO (21:20)
[2024-04-01] VITALS (23 sets, daily range): BP systolic 82–122; BP diastolic 41–77; PULSE 47–144; RESP 16–30; TEMP 35.7–38.3; O2SAT 94–100
--- NOTE | 2024-04-01 00:06 | PCRCNOTE ---
Window of time for administration has passed. See next scheduled administration.
[2024-04-01 01:20] LABS: Glucose Point of Care 85 mg/dl (65-105)
[2024-04-01] MEDS: LEVALBUTEROL NEB 1.25 MG/3 ML INHALATION ×4 (01:54→21:03)
[2024-04-01 07:28] LABS: Basophils Absolute Auto 0.1 K/mm3 (0.0-0.1); Basophils Percent Auto 0.7 % (0.2-1.2); Eosinophils Absolute Auto 0.3 K/mm3 (0-0.3); Eosinophils Percent Auto 4.6 % (0-4.4); Hematocrit 29.3 % (37.0-47.0); Immature Granulocyte Percent A 1.4 % (0-0.5); Lymphocytes Absolute Auto 0.94 K/mm3 (0.9-3.2); Mean Corpuscular HGB Conc 30.7 g/dl (32-36); Mean Corpuscular Hemoglobin 32.3 pg (26-34); Mean Platelet Volume 12.2 fl (7.4-10.4); Monocytes Absolute Auto 1.1 K/mm3 (0.1-0.6); Monocytes Percent Auto 15.3 % (2.6-8.5); Neutrophils Absolute Auto 4.7 K/mm3 (1.3-6.7); Platelet Count Result 370 k/mm3 (150-375); Red Blood Count 2.79 M/mm3 (4.2-5.4); White Blood Count 7.2 K/mm3 (4.5-10.0)
[2024-04-01 07:39] LABS: INR 3.9; Prothrombin Time 38.4 Seconds (11.1-14.7)
[2024-04-01 07:42] LABS: Alanine Aminotransferase 19 U/L (6-35); Albumin Level 2.9 g/dL (3.5-5.1); Alkaline Phosphatase 94 U/L (38-126); Anion Gap 5 mmol/L (4-12); Aspartate Amino Transferase 27 U/L (14-36); Bilirubin,Total 0.5 mg/dL (0.2-1.3); Blood Urea Nitrogen 21 mg/dL (7-17); Calcium 8.9 mg/dL (8.4-10.2); Carbon Dioxide 31 mmol/L (22-30); Chloride 100 mmol/L (98-107); Estimated CRCL calculation 33 ml/min; Estimated Glomerular Filt Rate 38; Glucose 80 mg/dL (65-110); Magnesium 1.8 mg/dL (1.6-2.3); Potassium 3.7 mmol/L (3.4-5.0); Sodium 136 mmol/L (137-145)
[2024-04-01] MEDS: CEFEPIME 2 GM/NS 50 ML 2 GM/50 ML BAG IVPB ×2 (09:15→20:26)
[2024-04-01] MEDS: SOTALOL HCL 40 MG TABLET PO (09:18)
[2024-04-01] MEDS: CHOLECALCIFEROL 1,000 UNITS TABLET 1000 UNITS PO (09:18)
[2024-04-01] MEDS: GABAPENTIN 300 MG CAPSULE PO ×2 (09:18→20:26)
[2024-04-01] MEDS: methiMAzole 5 MG TAB PO (09:18)
[2024-04-01] MEDS: FUROSEMIDE 20 MG TABLET PO (09:18)
[2024-04-01] MEDS: PANTOPRAZOLE 40 MG TABLET PO (09:19)
[2024-04-01] MEDS: polyethylene glycoL 3350 17 GM POWD.PACK PO (09:19)
[2024-04-01] MEDS: guaiFENesin 12 HR 600 MG TABCR 1200 MG PO ×2 (09:19→20:25)
[2024-04-01] MEDS: VENLAFAXINE HCL XR 75 MG CAP.ER.24H 150 MG PO (09:19)
[2024-04-01] MEDS: CYANOCOBALAMIN 1,000 MCG TABLET 1000 MCG PO (09:19)
[2024-04-01] MEDS: ACETYLCYSTEINE 20% INHAL SOLN 800 MG/4 ML VIAL 200 MG INHALATION ×2 (09:19→21:04)
[2024-04-01] MEDS: DICLOFENAC SODIUM 1% 100 GM GEL (*BKC) 1 APPLIC TOPICAL ×4 (09:23→20:26)
[2024-04-01] MEDS: HYDROcodone/acetaminophen (*CRX) 5-325 MG TABLET 1 TAB PO (09:27)
[2024-04-01] MEDS: DOXYCYCLINE 100 MG/NS 100 ML 100 MG/100 ML BAG IVPB (10:36)
[2024-04-01] MEDS: DEXTROMETHORPHAN POLISTIREX 60 MG/10 ML SYRINGE PO ×2 (10:37→20:34)
--- NOTE | 2024-04-01 11:20 | P.PNIM_ITS ---
Progress Note: A&P Assessment and Plan (1) Mechanical heart valve present: Code(s): Z95.2 - Presence of prosthetic heart valve Status: Acute Assessment and Plan: Supratherapeutic INR 4.3 Hold warfarin Evidence of hematoma in the left anterior abdominal wall 3 x 2.5 cm monitor (2) Palpitations: Code(s): R00.2 - Palpitations Status: Acute Assessment and Plan: - Likely due to PAF with RVR. - Better after hydration and resuming home meds. (3) Acute kidney injury: Code(s): N17.9 - Acute kidney failure, unspecified Status: Acute Assessment and Plan: Ddx pre-renal vs poor PO intake vs meds vs other. s/p 500 bolus with tachycardia --Resumed lasix --Creatinine stable resolved (4) HTN (hypertension): Qualifiers: Hypertension type: primary hypertension Qualified Code(s): I10 - Essential (primary) hypertension Code(s): I10 - Essential (primary) hypertension Status: Acute Assessment and Plan: - Appears well controlled. - Continue metoprolol, changed from XL to IR for titration - Follow VS (5) Hyperlipidemia: Qualifiers: Hyperlipidemia type: mixed hyperlipidemia Qualified Code(s): E78.2 - Mixed hyperlipidemia Code(s): E78.5 - Hyperlipidemia, unspecified Status: Acute Assessment and Plan: * continue simvastatin (6) Shortness of breath: Code(s): R06.02 - Shortness of breath Status: Acute Assessment and Plan: from [place] continue antibiotics (7) Anemia: Code(s): D64.9 - Anemia, unspecified Status: Acute Assessment and Plan: Blood count trending down since admission but may be dilutional 14.2>8.2 Iron panel showing iron deficiency anemia, Total Iron and Tsat low. B12 636. LDH 245 --iron sucrose 1000mg monitor H and H Gi plans for endoscopy when INR is below 2.5 and on heparin infusion (8) Heart failure, diastolic, acute on chronic: Code(s): I50.33 - Acute on chronic diastolic (congestive) heart failure Status: Acute Assessment and Plan: 08/24/23 Echo: TDS. EF 45%, biatrial enlargement, suspect (AYDIRA 1.4 cm2), mod MR, mild-mod TR. s/p 500ml fluid bolus, now back on IV lasix NT-proBNP 10,000 Resume lasix, 20mg IV daily & increase as able TTE * Flipped back into A fib RVR overnight * Repeat EKG showing new LBBB--Cardiology was notified. * Mild troponin bump--likely demand ischemia * No significant finding in Lexiscan * monitor (9) Pneumonia: Code(s): J18.9 - Pneumonia, unspecified organism Status: Acute Assessment and Plan: CT chest done 03/30/[address] was obtained due to worsening leukocytosis and tachypnea HAP Patient completed initial Day 4 on Cefepime and Doxycycline leukocytosis resolving MRSA negative (10) Atrial fibrillation with RVR: Code(s): I48.91 - Unspecified atrial fibrillation Status: Acute Assessment and Plan: on Sotalol and Warfarin which is on hold due to supratherapeutic INR monitor Plan Dysphagia MBS no aspiration noted Speech recommended soft and bite size level 6 as patient has no lower dentition DVT prophylaxis on Warfarin which is on hold for elevated INR Subjective Date/time seen: 04/01/24 11:20 Interval history: Comfortable at bedside INR 3.9, still holding Coumadin oxygen improving, now on 2 liters Review of Systems Review of Systems: All systems reviewed & are unremarkable except as noted in HPI and below Constitutional: Constitutional: Reports as per HPI and Reports no additional constitutional complaints Eyes: Eyes: Reports as per HPI and Reports no additional eye complaints ENT: Reports system reviewed and no additional complaints, except as documented and Reports as per HPI Cardiovascular: Cardiovascular: Reports as per HPI and Reports no additional cardiovascular complaints Respiratory: Respiratory: Reports as per HPI and Reports no additional respiratory complaints Gastrointestinal: Gastrointestinal: Reports as per HPI and Reports no additional gastrointestinal complaints Genitourinary: Genitourinary: Reports no additional female genitourinary complaints and Reports as per HPI Musculoskeletal: Musculoskeletal: Reports no additional musculoskeletal complaints and Reports as per HPI Integumentary/Breasts: Skin/Breast: Reports system reviewed and no additional complaints, except as docu and Reports as per HPI Neurologic: Reports system reviewed and no additional complaints, except as documented and Reports as per HPI Psychiatric: Psychiatric: Reports no additional psychiatric complaints and Reports as per HPI Exam Narrative: General: In no acute distress, well nourished Cardiac: Normal S1 and S2. NSR, No murmur, gallops or friction rubs, peripheral pulses intact. Respiratory: Lungs clear bilaterally , no adventitious lung sounds, currently on room air, raspy cough Gastrointestinal: soft, non-distended, non-tender, normoactive bowel sounds. : voiding without difficulty. Neuro: Alert and oriented x4 Objective Data Vital Signs Vital Signs: Vital Signs - 24 hr 03/31/24 12:00 03/31/24 14:14 03/31/24 14:23 Temperature Pulse Rate 65 66 66 Respiratory Rate 22 H 20 20 Blood Pressure Pulse Oximetry 100 Oxygen Delivery Nasal Cannula Oxygen Flow Rate 2 Fraction of Inspired Oxygen 03/31/24 15:39 03/31/24 16:00 03/31/24 16:00 Temperature 97.5 F L Pulse Rate 118 H 118 H 118 H Respiratory Rate 29 H 29 H Blood Pressure 121/78 Pulse Oximetry 96 96 Oxygen Delivery Nasal Cannula Oxygen Flow Rate 2 Fraction of Inspired Oxygen 28 03/31/24 20:00 03/31/24 20:00 03/31/24 20:15 Temperature 99.1 F Pulse Rate 70 75 Respiratory Rate 16 Blood Pressure 104/54 L Pulse Oximetry 98 98 Oxygen Delivery Nasal Cannula Oxygen Flow Rate 2 Fraction of Inspired Oxygen 04/01/24 00:00 04/01/24 01:05 04/01/24 01:54 Temperature 96.2 F L Pulse Rate 60 70 71 Respiratory Rate 16 20 Blood Pressure 118/67 Pulse Oximetry 97 Oxygen Delivery Oxygen Flow Rate Fraction of Inspired Oxygen 04/01/24 02:09 04/01/24 04:00 04/01/24 05:30 Temperature 97.8 F Pulse Rate 68 78 73 Respiratory Rate 20 20 Blood Pressure 113/59 L Pulse Oximetry 94 Oxygen Delivery Oxygen Flow Rate Fraction of Inspired Oxygen 04/01/24 08:00 04/01/24 09:18 04/01/24 09:24 Temperature 96.8 F L Pulse Rate 96 109 H 72 Respiratory Rate 22 H 20 Blood Pressure 107/50 L Pulse Oximetry 100 98 Oxygen Delivery Nasal Cannula Oxygen Flow Rate 2 Fraction of Inspired Oxygen 04/01/24 09:24 04/01/24 09:33 Temperature Pulse Rate 72 103 H Respiratory Rate 20 20 Blood Pressure Pulse Oximetry Oxygen Delivery Oxygen Flow Rate Fraction of Inspired Oxygen Intake/Output Intake/Output: Intake & Output 03/29/24 03/30/24 03/31/24 04/01/24 23:59 23:59 23:59 23:59 Intake Total 1050 2200 660 1240 Output Total 800 1350 450 550 Balance 250 850 210 690 Meds/Results Medications: Active Medications Generic Name Dose Route Start Last Admin Trade Name Freq PRN Reason Stop Dose Admin Acetaminophen 1,000 mg 03/10/24 10:04 03/31/24 21:19 Acetaminophen 500 Mg Tablet PO 1,000 mg Q6H PRN Administration Mild Pain (1-3) or Fever Hydrocodone Bitart/Acetaminophen 1 tab 03/08/24 17:21 04/01/24 09:27 Hydrocodone/Acetaminophen (*Crx) 5-325 Mg Tablet PO 04/05/24 23:59 1 tab Q6H PRN Administration Pain Rated 4-6 Acetylcysteine 200 mg 03/22/24 20:00 04/01/24 09:19 Acetylcysteine 20% Inhal Soln 800 Mg/4 Ml Vial INHALATION 200 mg Q12HRT IAN Administration Alprazolam 0.25 mg 03/08/24 17:21 03/31/24 21:18 Alprazolam (*Crx) 0.25 Mg Tablet PO 04/05/24 23:59 0.25 mg HS PRN Administration Anxiety Benzocaine 1 lozenge 03/10/24 18:17 03/16/24 08:17 Benzocaine/Menthol (*Bkc) 18 Ea Lozenge PO 1 lozenge PRN PRN Administration Sore Throat Cyanocobalamin 1,000 mcg 03/09/24 09:00 04/01/24 09:19 Cyanocobalamin 1,000 Mcg Tablet PO 1,000 mcg DAILY IAN Administration Cyclobenzaprine HCl 5 mg 03/19/24 14:03 03/31/24 21:20 Cyclobenzaprine Hcl 5 Mg Tablet PO 5 mg Q8H PRN Administration Muscle Spasm Dextromethorphan Polistirix 60 mg 03/28/24 09:00 04/01/24 10:37 Dextromethorphan Polistirex 60 Mg/10 Ml Syringe PO 60 mg Q12HR IAN Administration Diclofenac Sodium 1 applic 03/10/24 10:04 03/27/24 00:50 Diclofenac Sodium 1% 100 Gm Gel (*Bkc) TOPICAL 1 applic QID PRN Administration joint pain Diclofenac Sodium 1 applic 03/19/24 17:00 04/01/24 09:23 Diclofenac Sodium 1% 100 Gm Gel (*Bkc) TOPICAL 1 applic QID IAN Administration Furosemide 20 mg 03/16/24 09:00 04/01/24 09:18 Furosemide 20 Mg Tablet PO 20 mg DAILY INA Administration Gabapentin 300 mg 03/08/24 21:00 04/01/24 09:18 Gabapentin 300 Mg Capsule PO 300 mg Q12HR IAN Administration Guaifenesin 1,200 mg 03/13/24 12:50 04/01/24 09:19 Guaifenesin 12 Hr 600 Mg Tabcr PO 1,200 mg Q12HR IAN Administration Hydromorphone HCl 0.2 mg 03/21/24 11:31 03/21/24 11:54 Hydromorphone Hcl Inj (*Crx) 1 Mg/Ml Syr IV PUSH 0.2 mg Q6H PRN Administration Pain Rated 7-10 Cefepime HCl 2 gm in 50 mls @ 100 mls/hr 03/29/24 20:00 04/01/24 09:42 Maxipime 2 Gm/Ns 50 Ml IVPB Infused Q12H IAN Infusion Doxycycline Hyclate 100 mg in 100 mls @ 100 mls/hr 03/29/24 21:00 04/01/24 10:36 Vibramycin 100 Mg/Ns 100 Ml IVPB 100 mls/hr Q12H IAN Administration Levalbuterol HCl 1.25 mg 03/22/24 14:00 04/01/24 09:19 Levalbuterol Neb 1.25 Mg/3 Ml INHALATION 1.25 mg Q6HRT IAN Administration Melatonin 5 mg 03/15/24 21:00 03/31/24 21:18 Melatonin 5 Mg Tablet PO 5 mg HS IAN Administration Methimazole 5 mg 03/09/24 09:00 04/01/24 09:18 Methimazole 5 Mg Tab PO 5 mg DAILY IAN Administration Cinacalcet 15 Mg 0 each 03/10/24 09:00 04/01/24 10:42 Tablet PO 04/09/24 08:59 Not Given DAILY IAN Pantoprazole Sodium 40 mg 03/09/24 09:00 04/01/24 09:19 Pantoprazole 40 Mg Tablet PO 40 mg QAM IAN Administration Polyethylene Glycol 17 gm 03/22/24 09:00 04/01/24 09:19 Polyethylene Glycol 3350 17 Gm Powd.Pack PO 17 gm QAM IAN Administration Potassium Chloride 10 meq 03/08/24 21:00 03/31/24 21:18 Potassium Chloride 10 Meq Er Tablet PO 10 meq HS IAN Administration Simvastatin 10 mg 03/08/24 21:00 03/31/24 21:18 Simvastatin 10 Mg Tablet PO 10 mg HS IAN Administration Sotalol HCl 40 mg 03/27/24 14:00 04/01/24 09:18 Sotalol Hcl 40 Mg Tablet PO 40 mg DAILY IAN Administration Venlafaxine HCl 150 mg 03/09/24 09:00 04/01/24 09:19 Venlafaxine Hcl Xr 75 Mg Cap.Er.24h PO 150 mg DAILY IAN Administration Vitamin D 1,000 units 03/09/24 09:00 04/01/24 09:18 Cholecalciferol 1,000 Units Tablet PO 1,000 units DAILY IAN Administration Warfarin Sodium 9 mg 03/11/24 17:00 03/13/24 17:40 Warfarin (*Pbkc) 3 Mg Tablet PO 9 mg DAILY@1700 IAN Administration Warfarin Sodium 6 mg 03/22/24 17:00 03/28/24 16:53 Warfarin (*Pbkc) 3 Mg Tablet PO 6 mg DAILY@1700 IAN Administration Radiology Results: ITS Impressions Chest/Abdomen/Pelvis CT 03/21/24 12:36 IMPRESSION: CHEST: 1. No acute cardiopulmonary pathology. 2. Compression fracture of T6. MRI evaluation advised. ABDOMEN/PELVIS: 1. Hematoma in the left anterior abdominal wall. 2. Constipation. Lexiscan Stress Test 03/22/24 12:28 IMPRESSION: 1. No definite ischemia or infarct. 2. Normal left ventricular ejection fraction measuring 56%. Lumbar Spine X-Ray 03/23/24 13:40 IMPRESSION: 1. Mild lumbar spondylosis. 2. Lumbar dextroscoliosis. Cervical Spine CT 03/24/24 15:01 IMPRESSION: 1. Moderate cervical spondylosis, stable from 11/13/2020. 2. Cervicothoracic levoscoliosis. Chest X-Ray 03/29/24 09:34 IMPRESSION: 1. Mild atelectasis at left lung base. 2. Cardiomegaly. Chest CTA 03/29/24 12:58 IMPRESSION: 1. Bilateral pneumonia in the upper lobes and lower lobes. 2. No pulmonary embolus. 3. Liver surface nodularity suspicious for cirrhosis. Modified Barium Swallow 03/31/24 15:19 IMPRESSION: Transient laryngeal penetration without aspiration with swallows of large amounts of thin liquids. Please correlate with speech pathologist findings and specific feeding recommendations. Labs Labs: Laboratory Results - last 24 hr 03/31/24 03/31/24 04/01/24 12:45 20:26 01:16 WBC RBC Hgb Hct MCV MCH MCHC RDW Plt Count MPV Immature Gran % (Auto) Neut % (Auto) Lymph % (Auto) George % (Auto) Eos % (Auto) Baso % (Auto) Lymph # (Auto) George # (Auto) Eos # (Auto) Baso # (Auto) Abs Immat Gran (auto) Absolute Neuts (auto) Absolute Nucleated RBC Nucleated RBC % PT INR Sodium Potassium Chloride Carbon Dioxide Anion Gap BUN Creatinine Estim Creat Clear Calc Estimated GFR Glucose POC Capillary Glucose 131 H 85 Calcium Magnesium Total Bilirubin AST ALT Alkaline Phosphatase Total Protein Albumin Nasal MRSA (PCR) Not detected 04/01/24 04/01/24 06:54 06:55 WBC 7.2 RBC 2.79 L Hgb 9.0 L Hct 29.3 L MCV 105.0 H MCH 32.3 MCHC 30.7 L RDW 14.0 Plt Count 370 MPV 12.2 H Immature Gran % (Auto) 1.4 H Neut % (Auto) 65.0 Lymph % (Auto) 13.0 L George % (Auto) 15.3 H Eos % (Auto) 4.6 H Baso % (Auto) 0.7 Lymph # (Auto) 0.94 George # (Auto) 1.1 H Eos # (Auto) 0.3 Baso # (Auto) 0.1 Abs Immat Gran (auto) 0.10 H Absolute Neuts (auto) 4.7 Absolute Nucleated RBC 0.000 Nucleated RBC % 0.0 PT 38.4 H INR 3.9 Sodium 136 L Potassium 3.7 Chloride 100 Carbon Dioxide 31 H Anion Gap 5 BUN 21 H Creatinine 1.34 H Estim Creat Clear Calc 33 Estimated GFR 38 L Glucose 80 POC Capillary Glucose Calcium 8.9 Magnesium 1.8 Total Bilirubin 0.5 AST 27 ALT 19 Alkaline Phosphatase 94 Total Protein 6.0 L Albumin 2.9 L Nasal MRSA (PCR) Quality VTE Prophylaxis VTE prophylaxis: pharmacologic ordered
--- NOTE | 2024-04-01 14:57 | PCSTNOTE ---
Please refer to the Modified Barium Swallow Evaluation in the EMR. (MBS completed 03/31/24) The pt was seen for a modified barium swallow due to intermittent overt s/ of aspiration during the bedside swallow evaluation; she was seated for a lateral view and presented with 5ml thin liquid via a spoon, controlled amounts of barium pudding and cracker coated with barium pudding; she was also tested with uncontrolled thin liquids via a cup and a straw. The oral stages as well as the pharyngeal stages were within functional limits;pt has no lower dentition therefore slow mastication of solid was noted; laryngeal penetration occurred but it was completely cleared/ejected from the laryngeal vestibule. No aspiration occurred; however, pt could be at risk if not positioned upright during eating/drinking. Impression: functional swallow ability Recommendation: due to no lower dentition a level 6 diet, soft and bite-size is recommended; regular liquids
[2024-04-01] MEDS: BENZOCAINE/MENTHOL (*BKC) 18 EA LOZENGE 1 LOZENGE PO (18:35)
--- NOTE | 2024-04-01 20:03 | ECG_ITS ---
Test Date: 2024-04-01 21:11:06 Measurements Intervals [place] Rate: 144 P: 262 [place]: 86 QRS: -38 QRSD: 143 T: 93 QT: 314 QTc: 488 Interpretive Statements JUNCTIONAL TACHYCARDIA, POSSIBLE ATRIAL FLUTTER LEFT AXIS DEVIATION [QRS AXIS < -30] LEFT BUNDLE BRANCH BLOCK [120+ ms QRS DURATION, 80+ ms Q/S IN V1/V2, 85+ ms R IN I/aVL/V5/V6] Compared to ECG 03/28/2024 11:36:53 Atrial fibrillation no longer present Electronically Signed On 04-01-2024 23:45:03 [employer] by Paxton Villela M.D.
[2024-04-01] MEDS: SIMVASTATIN 10 MG TABLET PO (20:25)
[2024-04-01] MEDS: ACETAMINOPHEN 500 MG TABLET 1000 MG PO (20:25)
[2024-04-01] MEDS: DOXYCYCLINE HYCLATE 100 MG TABLET PO (20:25)
[2024-04-01] MEDS: POTASSIUM CHLORIDE 10 MEQ ER TABLET PO (20:26)
[2024-04-01] MEDS: MELATONIN 5 MG TABLET PO (20:26)
--- NOTE | 2024-04-01 20:55 | PM.EVENT ---
Event Note Event Note Event Note: Called by nursing for patient heart rate above 150 EKG shows AFib with RVR rate of 144, on exam patient lung sounds are very coarse with frequent coughing, chest x-ray shows severe pulmonary edema, 40 of IV Lasix given, patient diuresed well and heart rate returned to 70s AFib. 35 minutes of critical care time
[2024-04-01] MEDS: FUROSEMIDE INJ 40 MG/4 ML VIAL IV PUSH (21:03)
[2024-04-01 21:15] LABS: Glucose Point of Care 135 mg/dl (65-105)
[2024-04-02] VITALS (21 sets, daily range): BP systolic 119–129; BP diastolic 61–85; PULSE 59–108; RESP 20–24; TEMP 35.9–37.3; O2SAT 88–99
[2024-04-02] MEDS: LEVALBUTEROL NEB 1.25 MG/3 ML INHALATION ×4 (02:45→20:48)
[2024-04-02 06:58] LABS: Basophils Absolute Auto 0.1 K/mm3 (0.0-0.1); Basophils Percent Auto 0.6 % (0.2-1.2); Eosinophils Absolute Auto 0.1 K/mm3 (0-0.3); Eosinophils Percent Auto 1.6 % (0-4.4); Hematocrit 28.3 % (37.0-47.0); Hemoglobin 8.4 g/dL (12.0-15.0); Immature Granulocyte Absolute 0.11 K/mm3 (0.00-0.031); Immature Granulocyte Percent A 1.4 % (0-0.5); Lymphocytes Absolute Auto 1.15 K/mm3 (0.9-3.2); Lymphocytes Percent Auto 14.5 % (18.3-44.2); Mean Corpuscular HGB Conc 29.7 g/dl (32-36); Mean Corpuscular Hemoglobin 31.6 pg (26-34); Mean Corpuscular Volume 106.4 fl (80-100); Mean Platelet Volume 12.4 fl (7.4-10.4); Monocytes Absolute Auto 1.1 K/mm3 (0.1-0.6); Monocytes Percent Auto 14.1 % (2.6-8.5); Neutrophils Absolute Auto 5.4 K/mm3 (1.3-6.7); Neutrophils Percent Auto 67.8 % (45.5-73.1); Platelet Count Result 353 k/mm3 (150-375); Red Blood Count 2.66 M/mm3 (4.2-5.4); Red Cell Distribution Width 14.2 % (11.5-14.5); White Blood Count 7.9 K/mm3 (4.5-10.0)
[2024-04-02] MEDS: ACETYLCYSTEINE 20% INHAL SOLN 800 MG/4 ML VIAL 200 MG INHALATION ×2 (07:02→20:48)
[2024-04-02 07:06] LABS: INR 3.5; Prothrombin Time 35.7 Seconds (11.1-14.7)
[2024-04-02 07:16] LABS: NT Pro B Type Natriuretic Pept 8320 pg/mL (19.9-100)
[2024-04-02 07:20] LABS: Alanine Aminotransferase 15 U/L (6-35); Albumin Level 2.7 g/dL (3.5-5.1); Alkaline Phosphatase 80 U/L (38-126); Anion Gap 5 mmol/L (4-12); Aspartate Amino Transferase 25 U/L (14-36); Bilirubin,Total 0.5 mg/dL (0.2-1.3); Blood Urea Nitrogen 22 mg/dL (7-17); Calcium 8.7 mg/dL (8.4-10.2); Carbon Dioxide 30 mmol/L (22-30); Chloride 102 mmol/L (98-107); Estimated CRCL calculation 35 ml/min; Estimated Glomerular Filt Rate 41; Glucose 77 mg/dL (65-110); Magnesium 1.5 mg/dL (1.6-2.3); Potassium 3.9 mmol/L (3.4-5.0); Sodium 137 mmol/L (137-145)
[2024-04-02 07:44] LABS: Large Platelets Present; Macrocytosis 1+ (NORMAL); Platelet Estimate Adequate (Adequate); Schistocytes None Seen
[2024-04-02] MEDS: polyethylene glycoL 3350 17 GM POWD.PACK PO (07:59)
[2024-04-02] MEDS: CEFEPIME 2 GM/NS 50 ML 2 GM/50 ML BAG IVPB ×2 (07:59→21:43)
[2024-04-02] MEDS: CYANOCOBALAMIN 1,000 MCG TABLET 1000 MCG PO (08:00)
[2024-04-02] MEDS: DEXTROMETHORPHAN POLISTIREX 60 MG/10 ML SYRINGE PO ×2 (08:00→21:50)
[2024-04-02] MEDS: methiMAzole 5 MG TAB PO (08:00)
[2024-04-02] MEDS: CINACALCET PO (08:00)
[2024-04-02] MEDS: SOTALOL HCL 40 MG TABLET PO (08:00)
[2024-04-02] MEDS: CHOLECALCIFEROL 1,000 UNITS TABLET 1000 UNITS PO (08:00)
[2024-04-02] MEDS: VENLAFAXINE HCL XR 75 MG CAP.ER.24H 150 MG PO (08:00)
[2024-04-02] MEDS: GABAPENTIN 300 MG CAPSULE PO ×2 (08:01→21:46)
[2024-04-02] MEDS: PANTOPRAZOLE 40 MG TABLET PO (08:01)
[2024-04-02] MEDS: DICLOFENAC SODIUM 1% 100 GM GEL (*BKC) 1 APPLIC TOPICAL (08:01)
[2024-04-02] MEDS: guaiFENesin 12 HR 600 MG TABCR 1200 MG PO ×2 (08:01→21:46)
[2024-04-02] MEDS: DOXYCYCLINE HYCLATE 100 MG TABLET PO ×2 (08:01→21:46)
[2024-04-02] MEDS: HYDROcodone/acetaminophen (*CRX) 5-325 MG TABLET 1 TAB PO ×2 (08:20→16:58)
[2024-04-02] MEDS: FUROSEMIDE INJ 40 MG/4 ML VIAL IV PUSH ×2 (10:55→16:54)
[2024-04-02] MEDS: ACETAMINOPHEN 500 MG TABLET 1000 MG PO ×2 (12:12→21:47)
--- NOTE | 2024-04-02 14:25 | PM.IMPN ---
Progress Note: A&P Assessment and Plan (1) Mechanical heart valve present: Code(s): Z95.2 - Presence of prosthetic heart valve Status: Acute Assessment and Plan: Supratherapeutic INR 3.5 Hold warfarin Evidence of hematoma in the left anterior abdominal wall 3 x 2.5 cm monitor (2) Palpitations: Code(s): R00.2 - Palpitations Status: Acute Assessment and Plan: - Likely due to PAF with RVR. - Better after hydration and resuming home meds. (3) Acute kidney injury: Code(s): N17.9 - Acute kidney failure, unspecified Status: Acute Assessment and Plan: Ddx pre-renal vs poor PO intake vs meds vs other. s/p 500 bolus with tachycardia --Resumed lasix --Creatinine stable resolved (4) HTN (hypertension): Qualifiers: Hypertension type: primary hypertension Qualified Code(s): I10 - Essential (primary) hypertension Code(s): I10 - Essential (primary) hypertension Status: Acute Assessment and Plan: - Appears well controlled. -On Sotalol, Metoprolol on hold - Follow VS (5) Hyperlipidemia: Qualifiers: Hyperlipidemia type: mixed hyperlipidemia Qualified Code(s): E78.2 - Mixed hyperlipidemia Code(s): E78.5 - Hyperlipidemia, unspecified Status: Acute Assessment and Plan: continue simvastatin (6) Shortness of breath: Code(s): R06.02 - Shortness of breath Status: Acute Assessment and Plan: from p[place]em[place] continue antibiotics (7) Anemia: Code(s): D64.9 - Anemia, unspecified Status: Acute Assessment and Plan: Blood count trending down since admission but may be dilutional 14.2>8.2 Iron panel showing iron deficiency anemia, Total Iron and Tsat low. B12 636. LDH 245 --iron sucrose 1000mg monitor H and H Gi plans for endoscopy when INR is below 2.5 and on heparin infusion INR 3.5 today (8) Heart failure, diastolic, acute on chronic: Code(s): I50.33 - Acute on chronic diastolic (congestive) heart failure Status: Acute Assessment and Plan: 08/24/23 Echo: TDS. EF 45%, biatrial enlargement, suspect (YADIRA 1.4 cm2), mod MR, mild-mod TR. s/p 500ml fluid bolus, now back on IV lasix NT-proBNP 10,000 continue Lasix 20mg IV bid TTE Flipped back into A fib RVR overnight Repeat EKG showing new LBBB--Cardiology was notified. Mild troponin bump--likely demand ischemia No significant finding in Lexiscan monitor (9) Pneumonia: Code(s): J18.9 - Pneumonia, unspecified organism Status: Acute Assessment and Plan: CT chest done 03/30/[address] was obtained due to worsening leukocytosis and tachypnea HAP Patient completed initial Day 5 on Cefepime and Doxycycline leukocytosis resolving MRSA negative (10) Atrial fibrillation with RVR: Code(s): I48.91 - Unspecified atrial fibrillation Status: Acute Assessment and Plan: on Sotalol and Warfarin which is on hold due to supratherapeutic INR monitor Plan Dysphagia MBS no aspiration noted Speech recommended soft and bite size level 6 as patient has no lower dentition DVT prophylaxis on Warfarin which is on hold for elevated INR Subjective Date/time seen: 04/02/24 14:25 Interval history: Comfortable at bedside INR 3.5, still holding Coumadin oxygen improving, now on 2 liters Review of Systems Review of Systems: All systems reviewed & are unremarkable except as noted in HPI and below Constitutional: Constitutional: Reports as per HPI and Reports no additional constitutional complaints Eyes: Eyes: Reports as per HPI and Reports no additional eye complaints ENT: Reports system reviewed and no additional complaints, except as documented and Reports as per HPI Cardiovascular: Cardiovascular: Reports as per HPI and Reports no additional cardiovascular complaints Respiratory: Respiratory: Reports as per HPI and Reports no additional respiratory complaints Gastrointestinal: Gastrointestinal: Reports as per HPI and Reports no additional gastrointestinal complaints Genitourinary: Genitourinary: Reports no additional female genitourinary complaints and Reports as per HPI Musculoskeletal: Musculoskeletal: Reports no additional musculoskeletal complaints and Reports as per HPI Integumentary/Breasts: Skin/Breast: Reports system reviewed and no additional complaints, except as docu and Reports as per HPI Neurologic: Reports system reviewed and no additional complaints, except as documented and Reports as per HPI Psychiatric: Psychiatric: Reports no additional psychiatric complaints and Reports as per HPI Exam Narrative: General: In no acute distress, well nourished Cardiac: Normal S1 and S2. NSR, No murmur, gallops or friction rubs, peripheral pulses intact. Respiratory: Lungs clear bilaterally , no adventitious lung sounds, currently on room air, raspy cough Gastrointestinal: soft, non-distended, non-tender, normoactive bowel sounds. : voiding without difficulty. Neuro: Alert and oriented x4 Objective Data Vital Signs Vital Signs: Vital Signs - 24 hr 04/01/24 15:22 04/01/24 15:22 04/01/24 15:33 Temperature Pulse Rate 110 H 110 H 108 H Respiratory Rate 20 20 20 Blood Pressure Pulse Oximetry 96 Oxygen Delivery Nasal Cannula Oxygen Flow Rate 2 04/01/24 16:00 04/01/24 16:00 04/01/24 19:55 Temperature 97.7 F 101 F H Pulse Rate 70 115 H 142 H Respiratory Rate 20 30 H Blood Pressure 82/60 L 114/77 Pulse Oximetry 100 97 Oxygen Delivery Oxygen Flow Rate 04/01/24 20:00 04/01/24 20:00 04/01/24 21:10 Temperature Pulse Rate 143 H Respiratory Rate Blood Pressure Pulse Oximetry 97 95 Oxygen Delivery Nasal Cannula Nasal Cannula Oxygen Flow Rate 2 3 04/01/24 21:25 04/01/24 21:42 04/01/24 21:56 Temperature Pulse Rate 144 H 137 H 67 Respiratory Rate 26 H 26 H Blood Pressure Pulse Oximetry 95 Oxygen Delivery Nasal Cannula Oxygen Flow Rate 3 04/01/24 21:57 04/01/24 23:25 04/02/24 00:00 Temperature 99.7 F H 97.7 F Pulse Rate 68 70 Respiratory Rate 25 H Blood Pressure 122/52 L Pulse Oximetry 95 Oxygen Delivery Oxygen Flow Rate 04/02/24 00:45 04/02/24 04:00 04/02/24 04:15 Temperature 96.7 F L Pulse Rate 68 62 62 Respiratory Rate 21 H 24 H Blood Pressure 119/85 Pulse Oximetry 95 99 Oxygen Delivery BiPAP Oxygen Flow Rate 04/02/24 07:03 04/02/24 07:03 04/02/24 07:13 Temperature Pulse Rate 103 H 103 H 108 H Respiratory Rate 20 20 24 H Blood Pressure Pulse Oximetry 95 Oxygen Delivery Nasal Cannula Oxygen Flow Rate 3 04/02/24 08:00 04/02/24 08:00 04/02/24 10:44 Temperature 97.3 F L Pulse Rate 106 H 104 H Respiratory Rate 24 H Blood Pressure 120/69 Pulse Oximetry 95 97 Oxygen Delivery Nasal Cannula Oxygen Flow Rate 3 04/02/24 13:05 04/02/24 13:15 Temperature Pulse Rate 98 101 H Respiratory Rate 22 H 24 H Blood Pressure Pulse Oximetry Oxygen Delivery Oxygen Flow Rate Intake/Output Intake/Output: Intake & Output 03/30/24 03/31/24 04/01/24 04/02/24 23:59 23:59 23:59 23:59 Intake Total 2200 660 1870 500 Output Total 7214 860 7563 1475 Balance 850 210 20 -975 Meds/Results Medications: Active Medications Generic Name Dose Route Start Last Admin Trade Name Freq PRN Reason Stop Dose Admin Acetaminophen 1,000 mg 03/10/24 10:04 04/02/24 12:12 Acetaminophen 500 Mg Tablet PO 1,000 mg Q6H PRN Administration Mild Pain (1-3) or Fever Hydrocodone Bitart/Acetaminophen 1 tab 03/08/24 17:21 04/02/24 08:20 Hydrocodone/Acetaminophen (*Crx) 5-325 Mg Tablet PO 04/05/24 23:59 1 tab Q6H PRN Administration Pain Rated 4-6 Acetylcysteine 200 mg 03/22/24 20:00 04/02/24 07:02 Acetylcysteine 20% Inhal Soln 800 Mg/4 Ml Vial INHALATION 200 mg Q12HRT IAN Administration Alprazolam 0.25 mg 03/08/24 17:21 03/31/24 21:18 Alprazolam (*Crx) 0.25 Mg Tablet PO 04/05/24 23:59 0.25 mg HS PRN Administration Anxiety Benzocaine 1 lozenge 03/10/24 18:17 04/01/24 18:35 Benzocaine/Menthol (*Bkc) 18 Ea Lozenge PO 1 lozenge PRN PRN Administration Sore Throat Cyanocobalamin 1,000 mcg 03/09/24 09:00 04/02/24 08:00 Cyanocobalamin 1,000 Mcg Tablet PO 1,000 mcg DAILY IAN Administration Cyclobenzaprine HCl 5 mg 03/19/24 14:03 03/31/24 21:20 Cyclobenzaprine Hcl 5 Mg Tablet PO 5 mg Q8H PRN Administration Muscle Spasm Dextromethorphan Polistirix 60 mg 03/28/24 09:00 04/02/24 08:00 Dextromethorphan Polistirex 60 Mg/10 Ml Syringe PO 60 mg Q12HR IAN Administration Diclofenac Sodium 1 applic 03/10/24 10:04 03/27/24 00:50 Diclofenac Sodium 1% 100 Gm Gel (*Bkc) TOPICAL 1 applic QID PRN Administration joint pain Doxycycline Hyclate 100 mg 04/01/24 21:00 04/02/24 08:01 Doxycycline Hyclate 100 Mg Tablet PO 04/04/24 23:59 100 mg Q12HR IAN Administration Furosemide 20 mg 03/16/24 09:00 04/01/24 09:18 Furosemide 20 Mg Tablet PO 20 mg DAILY IAN Administration Furosemide 40 mg 04/02/24 10:20 04/02/24 10:55 Furosemide Inj 40 Mg/4 Ml Vial IV PUSH 40 mg BID IAN Administration Gabapentin 300 mg 03/08/24 21:00 04/02/24 08:01 Gabapentin 300 Mg Capsule PO 300 mg Q12HR IAN Administration Guaifenesin 1,200 mg 03/13/24 12:50 04/02/24 08:01 Guaifenesin 12 Hr 600 Mg Tabcr PO 1,200 mg Q12HR IAN Administration Hydromorphone HCl 0.2 mg 03/21/24 11:31 03/21/24 11:54 Hydromorphone Hcl Inj (*Crx) 1 Mg/Ml Syr IV PUSH 0.2 mg Q6H PRN Administration Pain Rated 7-10 Cefepime HCl 2 gm in 50 mls @ 100 mls/hr 03/29/24 20:00 04/02/24 08:29 Maxipime 2 Gm/Ns 50 Ml IVPB 04/04/24 23:59 Infused Q12H IAN Infusion Magnesium Sulfate/Dextrose 3 gm in 100 mls @ 33.333 mls/hr 04/02/24 14:24 Magnesium Sulfate 3gm/[id number] IVPB 04/02/24 17:23 ONCE ONE Levalbuterol HCl 1.25 mg 03/22/24 14:00 04/02/24 12:59 Levalbuterol Neb 1.25 Mg/3 Ml INHALATION 1.25 mg Q6HRT IAN Administration Melatonin 5 mg 03/15/24 21:00 04/01/24 20:26 Melatonin 5 Mg Tablet PO 5 mg HS IAN Administration Methimazole 5 mg 03/09/24 09:00 04/02/24 08:00 Methimazole 5 Mg Tab PO 5 mg DAILY IAN Administration Cinacalcet 15 Mg 0 each 03/10/24 09:00 04/02/24 08:00 Tablet PO 04/09/24 08:59 1 each DAILY IAN Administration Pantoprazole Sodium 40 mg 03/09/24 09:00 04/02/24 08:01 Pantoprazole 40 Mg Tablet PO 40 mg QAM IAN Administration Polyethylene Glycol 17 gm 03/22/24 09:00 04/02/24 07:59 Polyethylene Glycol 3350 17 Gm Powd.Pack PO 17 gm QAM IAN Administration Potassium Chloride 10 meq 03/08/24 21:00 04/01/24 20:26 Potassium Chloride 10 Meq Er Tablet PO 10 meq HS IAN Administration Potassium Chloride 20 meq 04/02/24 14:24 Potassium Chloride 20 Meq Packet (For Liquid) PO 04/02/24 14:25 ONCE ONE Simvastatin 10 mg 03/08/24 21:00 04/01/24 20:25 Simvastatin 10 Mg Tablet PO 10 mg HS IAN Administration Sotalol HCl 40 mg 03/27/24 14:00 04/02/24 08:00 Sotalol Hcl 40 Mg Tablet PO 40 mg DAILY IAN Administration Venlafaxine HCl 150 mg 03/09/24 09:00 04/02/24 08:00 Venlafaxine Hcl Xr 75 Mg Cap.Er.24h PO 150 mg DAILY IAN Administration Vitamin D 1,000 units 03/09/24 09:00 04/02/24 08:00 Cholecalciferol 1,000 Units Tablet PO 1,000 units DAILY IAN Administration Warfarin Sodium 9 mg 03/11/24 17:00 03/13/24 17:40 Warfarin (*Pbkc) 3 Mg Tablet PO 9 mg DAILY@1700 [facility] Administration Warfarin Sodium 6 mg 03/22/24 17:00 03/28/24 16:53 Warfarin (*Pbkc) 3 Mg Tablet PO 6 mg DAILY@1700 [facility] Administration Radiology Results: ITS Impressions Chest/Abdomen/Pelvis CT 03/21/24 12:36 IMPRESSION: CHEST: 1. No acute cardiopulmonary pathology. 2. Compression fracture of T6. MRI evaluation advised. ABDOMEN/PELVIS: 1. Hematoma in the left anterior abdominal wall. 2. Constipation. Lexiscan Stress Test 03/22/24 12:28 IMPRESSION: 1. No definite ischemia or infarct. 2. Normal left ventricular ejection fraction measuring 56%. Lumbar Spine X-Ray 03/23/24 13:40 IMPRESSION: 1. Mild lumbar spondylosis. 2. Lumbar dextroscoliosis. Cervical Spine CT 03/24/24 15:01 IMPRESSION: 1. Moderate cervical spondylosis, stable from 11/13/2020. 2. Cervicothoracic levoscoliosis. Chest CTA 03/29/24 12:58 IMPRESSION: 1. Bilateral pneumonia in the upper lobes and lower lobes. 2. No pulmonary embolus. 3. Liver surface nodularity suspicious for cirrhosis. Modified Barium Swallow 03/31/24 15:19 IMPRESSION: Transient laryngeal penetration without aspiration with swallows of large amounts of thin liquids. Please correlate with speech pathologist findings and specific feeding recommendations. Chest X-Ray 04/01/24 20:45 IMPRESSION: Moderate pulmonary vascular congestion with a large left-sided pleural effusion Labs Labs: Laboratory Results - last 24 hr 04/01/24 04/02/24 19:54 05:39 WBC 7.9 RBC 2.66 L Hgb 8.4 L Hct 28.3 L MCV 106.4 H MCH 31.6 MCHC 29.7 L RDW 14.2 Plt Count 353 MPV 12.4 H Immature Gran % (Auto) 1.4 H Neut % (Auto) 67.8 Lymph % (Auto) 14.5 L Mccormick % (Auto) 14.1 H Eos % (Auto) 1.6 Baso % (Auto) 0.6 Lymph # (Auto) 1.15 Mccormick # (Auto) 1.1 H Eos # (Auto) 0.1 Baso # (Auto) 0.1 Abs Immat Gran (auto) 0.11 H Absolute Neuts (auto) 5.4 Absolute Nucleated RBC 0.000 Nucleated RBC % 0.0 Platelet Estimate Adequate Large Platelets Present Macrocytosis 1+ Schistocytes None seen PT 35.7 H INR 3.5 Sodium 137 Potassium 3.9 Chloride 102 Carbon Dioxide 30 Anion Gap 5 BUN 22 H Creatinine 1.25 H Estim Creat Clear Calc 35 Estimated GFR 41 L Glucose 77 POC Capillary Glucose 135 H Calcium 8.7 Magnesium 1.5 L Total Bilirubin 0.5 AST 25 ALT 15 Alkaline Phosphatase 80 NT-Pro-B Natriuret Pep 8320 H Total Protein 6.0 L Albumin 2.7 L Quality VTE Prophylaxis VTE prophylaxis: pharmacologic ordered
[2024-04-02] MEDS: POTASSIUM CHLORIDE 20 MEQ PACKET (FOR LIQUID) PO (14:53)
[2024-04-02] MEDS: MAGNESIUM SULFATE 3GM/D5W100ML 3 GM/100 ML BAG IVPB (14:53)
[2024-04-02 21:10] LABS: Glucose Point of Care 94 mg/dl (65-105)
[2024-04-02] MEDS: CYCLOBENZAPRINE HCL 5 MG TABLET PO (21:46)
[2024-04-02] MEDS: ALPRAZolam (*CRX) 0.25 MG TABLET PO (21:46)
[2024-04-02] MEDS: MELATONIN 5 MG TABLET PO (21:46)
[2024-04-02] MEDS: POTASSIUM CHLORIDE 10 MEQ ER TABLET PO (21:47)
[2024-04-02] MEDS: SIMVASTATIN 10 MG TABLET PO (21:47)
[2024-04-03] VITALS (22 sets, daily range): BP systolic 110–136; BP diastolic 48–63; PULSE 55–67; RESP 16–24; TEMP 35.9–37.1; O2SAT 86–96
[2024-04-03] MEDS: LEVALBUTEROL NEB 1.25 MG/3 ML INHALATION ×4 (02:30→19:10)
[2024-04-03 06:57] LABS: Basophils Absolute Auto 0.1 K/mm3 (0.0-0.1); Basophils Percent Auto 0.7 % (0.2-1.2); Eosinophils Absolute Auto 0.2 K/mm3 (0-0.3); Eosinophils Percent Auto 3.4 % (0-4.4); Hematocrit 28.2 % (37.0-47.0); Hemoglobin 8.7 g/dL (12.0-15.0); Immature Granulocyte Absolute 0.15 K/mm3 (0.00-0.031); Immature Granulocyte Percent A 2.1 % (0-0.5); Lymphocytes Absolute Auto 1.28 K/mm3 (0.9-3.2); Lymphocytes Percent Auto 17.9 % (18.3-44.2); Mean Corpuscular HGB Conc 30.9 g/dl (32-36); Mean Corpuscular Hemoglobin 32.2 pg (26-34); Mean Corpuscular Volume 104.4 fl (80-100); Mean Platelet Volume 11.8 fl (7.4-10.4); Monocytes Percent Auto 13.6 % (2.6-8.5); Neutrophils Absolute Auto 4.5 K/mm3 (1.3-6.7); Neutrophils Percent Auto 62.3 % (45.5-73.1); Platelet Count Result 345 k/mm3 (150-375); Red Cell Distribution Width 14.2 % (11.5-14.5); White Blood Count 7.2 K/mm3 (4.5-10.0)
[2024-04-03 07:09] LABS: Lactic Acid Reflex 0.7 mmol/L (0.7-2.0)
[2024-04-03 07:21] LABS: INR 3.6; Prothrombin Time 36.4 Seconds (11.1-14.7)
[2024-04-03 07:34] LABS: Alanine Aminotransferase 15 U/L (6-35); Albumin Level 2.8 g/dL (3.5-5.1); Alkaline Phosphatase 88 U/L (38-126); Anion Gap 3 mmol/L (4-12); Aspartate Amino Transferase 29 U/L (14-36); Bilirubin,Total 0.5 mg/dL (0.2-1.3); Blood Urea Nitrogen 24 mg/dL (7-17); Calcium 9.4 mg/dL (8.4-10.2); Carbon Dioxide 32 mmol/L (22-30); Chloride 100 mmol/L (98-107); Estimated CRCL calculation 32 ml/min; Estimated Glomerular Filt Rate 37; Glucose 56 mg/dL (65-110); Magnesium 2.2 mg/dL (1.6-2.3); Potassium 4.1 mmol/L (3.4-5.0); Sodium 135 mmol/L (137-145)
[2024-04-03] MEDS: CEFEPIME 2 GM/NS 50 ML 2 GM/50 ML BAG IVPB ×2 (07:45→20:46)
[2024-04-03] MEDS: polyethylene glycoL 3350 17 GM POWD.PACK PO (07:45)
[2024-04-03] MEDS: HYDROcodone/acetaminophen (*CRX) 5-325 MG TABLET 1 TAB PO ×3 (07:46→20:47)
[2024-04-03] MEDS: GABAPENTIN 300 MG CAPSULE PO ×2 (07:46→20:47)
[2024-04-03] MEDS: PANTOPRAZOLE 40 MG TABLET PO (07:46)
[2024-04-03] MEDS: CHOLECALCIFEROL 1,000 UNITS TABLET 1000 UNITS PO (07:46)
[2024-04-03] MEDS: SOTALOL HCL 40 MG TABLET PO (07:46)
[2024-04-03] MEDS: methiMAzole 5 MG TAB PO (07:46)
[2024-04-03] MEDS: VENLAFAXINE HCL XR 75 MG CAP.ER.24H 150 MG PO (07:47)
[2024-04-03] MEDS: guaiFENesin 12 HR 600 MG TABCR 1200 MG PO ×2 (07:47→20:47)
[2024-04-03] MEDS: DOXYCYCLINE HYCLATE 100 MG TABLET PO ×2 (07:47→20:47)
[2024-04-03] MEDS: CINACALCET PO (07:47)
[2024-04-03] MEDS: FUROSEMIDE INJ 40 MG/4 ML VIAL IV PUSH (07:47)
[2024-04-03] MEDS: CYANOCOBALAMIN 1,000 MCG TABLET 1000 MCG PO (07:47)
[2024-04-03 07:52] LABS: Glucose Point of Care 91 mg/dl (65-105)
[2024-04-03 08:35] LABS: Glucose Point of Care 95 mg/dl (65-105)
[2024-04-03] MEDS: ACETYLCYSTEINE 20% INHAL SOLN 800 MG/4 ML VIAL 200 MG INHALATION ×2 (08:49→19:10)
--- NOTE | 2024-04-03 09:08 | PM.IMPN ---
Progress Note: A&P Assessment and Plan (1) Mechanical heart valve present: Code(s): Z95.2 - Presence of prosthetic heart valve Status: Acute Assessment and Plan: Supratherapeutic INR 3.6 Hold warfarin Evidence of hematoma in the left anterior abdominal wall 3 x 2.5 cm monitor (2) Palpitations: Code(s): R00.2 - Palpitations Status: Acute Assessment and Plan: - Likely due to PAF with RVR. - Better after hydration and resuming home meds. (3) Acute kidney injury: Code(s): N17.9 - Acute kidney failure, unspecified Status: Acute Assessment and Plan: Ddx pre-renal vs poor PO intake vs meds vs other. s/p 500 bolus with tachycardia --Resumed lasix --Creatinine stable resolved (4) HTN (hypertension): Qualifiers: Hypertension type: primary hypertension Qualified Code(s): I10 - Essential (primary) hypertension Code(s): I10 - Essential (primary) hypertension Status: Acute Assessment and Plan: - Appears well controlled. -On Sotalol, Metoprolol on hold - Follow VS (5) Hyperlipidemia: Qualifiers: Hyperlipidemia type: mixed hyperlipidemia Qualified Code(s): E78.2 - Mixed hyperlipidemia Code(s): E78.5 - Hyperlipidemia, unspecified Status: Acute Assessment and Plan: continue simvastatin (6) Shortness of breath: Code(s): R06.02 - Shortness of breath Status: Acute Assessment and Plan: from p[place] continue antibiotics (7) Anemia: Code(s): D64.9 - Anemia, unspecified Status: Acute Assessment and Plan: Blood count trending down since admission but may be dilutional 14.2>8.7 Iron panel showing iron deficiency anemia, Total Iron and Tsat low. B12 636. LDH 245 --iron sucrose 1000mg monitor H and H Gi plans for endoscopy when INR is below 2.5 and on heparin infusion INR 3.6 today (8) Heart failure, diastolic, acute on chronic: Code(s): I50.33 - Acute on chronic diastolic (congestive) heart failure Status: Acute Assessment and Plan: 08/24/23 Echo: TDS. EF 45%, biatrial enlargement, suspect (YADIRA 1.4 cm2), mod MR, mild-mod TR. s/p 500ml fluid bolus, now back on IV lasix NT-proBNP 10,000 continue Lasix 20mg IV bid TTE Flipped back into A fib RVR overnight Repeat EKG showing new LBBB--Cardiology was notified. Mild troponin bump--likely demand ischemia No significant finding in Lexiscan monitor (9) Pneumonia: Code(s): J18.9 - Pneumonia, unspecified organism Status: Acute Assessment and Plan: CT chest done 03/30/[address] was obtained due to worsening leukocytosis and tachypnea HAP Patient completed initial Day 6/ on Cefepime and Doxycycline leukocytosis resolving MRSA negative (10) Atrial fibrillation with RVR: Code(s): I48.91 - Unspecified atrial fibrillation Status: Acute Assessment and Plan: on Sotalol and Warfarin which is on hold due to supratherapeutic INR monitor Plan Hypoglycemia BG this morning 56 s/p Dextrose BG now 91 repeat BG 30 minutes later and q2 hours after Insulin and Cpeptide ordered monitor closely Dysphagia MBS no aspiration noted Speech recommended soft and bite size level 6 as patient has no lower dentition DVT prophylaxis on Warfarin which is on hold for elevated INR Subjective Date/time seen: 04/03/24 09:08 Interval history: Comfortable at bedside INR 3.6, still holding Coumadin oxygen improving, now on 1 liters Hypoglycemic this morning Review of Systems Review of Systems: All systems reviewed & are unremarkable except as noted in HPI and below Constitutional: Constitutional: Reports as per HPI and Reports no additional constitutional complaints Eyes: Eyes: Reports as per HPI and Reports no additional eye complaints ENT: Reports system reviewed and no additional complaints, except as documented and Reports as per HPI Cardiovascular: Cardiovascular: Reports as per HPI and Reports no additional cardiovascular complaints Respiratory: Respiratory: Reports as per HPI and Reports no additional respiratory complaints Gastrointestinal: Gastrointestinal: Reports as per HPI and Reports no additional gastrointestinal complaints Genitourinary: Genitourinary: Reports no additional female genitourinary complaints and Reports as per HPI Musculoskeletal: Musculoskeletal: Reports no additional musculoskeletal complaints and Reports as per HPI Integumentary/Breasts: Skin/Breast: Reports system reviewed and no additional complaints, except as docu and Reports as per HPI Neurologic: Reports system reviewed and no additional complaints, except as documented and Reports as per HPI Psychiatric: Psychiatric: Reports no additional psychiatric complaints and Reports as per HPI Exam Narrative: General: In no acute distress, well nourished Cardiac: Normal S1 and S2. NSR, No murmur, gallops or friction rubs, peripheral pulses intact. Respiratory: Lungs clear bilaterally , no adventitious lung sounds, currently on room air, raspy cough Gastrointestinal: soft, non-distended, non-tender, normoactive bowel sounds. : voiding without difficulty. Neuro: Alert and oriented x4 Objective Data Vital Signs Vital Signs: Vital Signs - 24 hr 04/02/24 10:44 04/02/24 12:00 04/02/24 13:05 Temperature 97.3 F L Pulse Rate 104 H 100 98 Respiratory Rate 24 H 22 H Blood Pressure 120/69 Pulse Oximetry 97 Oxygen Delivery Oxygen Flow Rate Fraction of Inspired Oxygen 04/02/24 13:15 04/02/24 15:18 04/02/24 16:00 Temperature 97.9 F Pulse Rate 101 H 62 71 Respiratory Rate 24 H 24 H Blood Pressure 122/68 Pulse Oximetry 98 Oxygen Delivery Oxygen Flow Rate Fraction of Inspired Oxygen 04/02/24 18:20 04/02/24 18:30 04/02/24 20:00 Temperature Pulse Rate Respiratory Rate Blood Pressure Pulse Oximetry 88 L 95 94 Oxygen Delivery Room Air Nasal Cannula Nasal Cannula Oxygen Flow Rate 1 1 Fraction of Inspired Oxygen 04/02/24 20:00 04/02/24 20:30 04/02/24 20:49 Temperature 99.1 F Pulse Rate 67 61 59 L Respiratory Rate 24 H 24 H Blood Pressure 129/61 Pulse Oximetry 94 Oxygen Delivery Oxygen Flow Rate Fraction of Inspired Oxygen 04/02/24 20:55 04/02/24 20:58 04/02/24 22:47 Temperature 96.8 F L Pulse Rate 59 L 65 Respiratory Rate 22 H Blood Pressure Pulse Oximetry 98 Oxygen Delivery Nasal Cannula Oxygen Flow Rate 3 Fraction of Inspired Oxygen 04/03/24 00:00 04/03/24 00:25 04/03/24 02:30 Temperature 96.8 F L Pulse Rate 67 63 64 Respiratory Rate 22 H 22 H Blood Pressure 117/48 L Pulse Oximetry 92 Oxygen Delivery Oxygen Flow Rate Fraction of Inspired Oxygen 04/03/24 02:37 04/03/24 04:00 04/03/24 04:45 Temperature 96.6 F L Pulse Rate 63 60 60 Respiratory Rate 22 H 24 H Blood Pressure 110/59 L Pulse Oximetry 96 Oxygen Delivery Oxygen Flow Rate Fraction of Inspired Oxygen 04/03/24 07:46 04/03/24 08:00 04/03/24 08:49 Temperature Pulse Rate 62 Respiratory Rate Blood Pressure Pulse Oximetry 96 93 Oxygen Delivery Nasal Cannula Nasal Cannula Oxygen Flow Rate 1 1 Fraction of Inspired Oxygen 04/03/24 08:49 04/03/24 09:06 Temperature Pulse Rate 61 60 Respiratory Rate 24 H 24 H Blood Pressure Pulse Oximetry Oxygen Delivery Oxygen Flow Rate Fraction of Inspired Oxygen Intake/Output Intake/Output: Intake & Output 03/31/24 04/01/24 04/02/24 04/03/24 23:59 23:59 23:59 23:59 Intake Total 660 1870 900 650 Output Total 450 1850 3275 650 Balance 210 20 -2375 0 Meds/Results Medications: Active Medications Generic Name Dose Route Start Last Admin Trade Name Freq PRN Reason Stop Dose Admin Acetaminophen 1,000 mg 03/10/24 10:04 04/02/24 21:47 Acetaminophen 500 Mg Tablet PO 1,000 mg Q6H PRN Administration Mild Pain (1-3) or Fever Hydrocodone Bitart/Acetaminophen 1 tab 03/08/24 17:21 04/03/24 07:46 Hydrocodone/Acetaminophen (*Crx) 5-325 Mg Tablet PO 04/05/24 23:59 1 tab Q6H PRN Administration Pain Rated 4-6 Acetylcysteine 200 mg 03/22/24 20:00 04/03/24 08:49 Acetylcysteine 20% Inhal Soln 800 Mg/4 Ml Vial INHALATION 200 mg Q12HRT IAN Administration Alprazolam 0.25 mg 03/08/24 17:21 04/02/24 21:46 Alprazolam (*Crx) 0.25 Mg Tablet PO 04/05/24 23:59 0.25 mg HS PRN Administration Anxiety Benzocaine 1 lozenge 03/10/24 18:17 04/01/24 18:35 Benzocaine/Menthol (*Bkc) 18 Ea Lozenge PO 1 lozenge PRN PRN Administration Sore Throat Cyanocobalamin 1,000 mcg 03/09/24 09:00 04/03/24 07:47 Cyanocobalamin 1,000 Mcg Tablet PO 1,000 mcg DAILY IAN Administration Cyclobenzaprine HCl 5 mg 03/19/24 14:03 04/02/24 21:46 Cyclobenzaprine Hcl 5 Mg Tablet PO 5 mg Q8H PRN Administration Muscle Spasm Dextromethorphan Polistirix 60 mg 03/28/24 09:00 04/03/24 07:47 Dextromethorphan Polistirex 60 Mg/10 Ml Syringe PO 60 mg Q12HR IAN Administration Diclofenac Sodium 1 applic 03/10/24 10:04 03/27/24 00:50 Diclofenac Sodium 1% 100 Gm Gel (*Bkc) TOPICAL 1 applic QID PRN Administration joint pain Doxycycline Hyclate 100 mg 04/01/24 21:00 04/03/24 07:47 Doxycycline Hyclate 100 Mg Tablet PO 04/04/24 23:59 100 mg Q12HR IAN Administration Furosemide 20 mg 03/16/24 09:00 04/01/24 09:18 Furosemide 20 Mg Tablet PO 20 mg DAILY IAN Administration Furosemide 20 mg 04/03/24 17:00 Furosemide Inj 40 Mg/4 Ml Vial IV PUSH BID IAN Gabapentin 300 mg 03/08/24 21:00 04/03/24 07:46 Gabapentin 300 Mg Capsule PO 300 mg Q12HR IAN Administration Guaifenesin 1,200 mg 03/13/24 12:50 04/03/24 07:47 Guaifenesin 12 Hr 600 Mg Tabcr PO 1,200 mg Q12HR IAN Administration Hydromorphone HCl 0.2 mg 03/21/24 11:31 03/21/24 11:54 Hydromorphone Hcl Inj (*Crx) 1 Mg/Ml Syr IV PUSH 0.2 mg Q6H PRN Administration Pain Rated 7-10 Cefepime HCl 2 gm in 50 mls @ 100 mls/hr 03/29/24 20:00 04/03/24 08:15 Maxipime 2 Gm/Ns 50 Ml IVPB 04/04/24 23:59 Infused Q12H IAN Infusion Levalbuterol HCl 1.25 mg 03/22/24 14:00 04/03/24 08:49 Levalbuterol Neb 1.25 Mg/3 Ml INHALATION 1.25 mg Q6HRT IAN Administration Melatonin 5 mg 03/15/24 21:00 04/02/24 21:46 Melatonin 5 Mg Tablet PO 5 mg HS IAN Administration Methimazole 5 mg 03/09/24 09:00 04/03/24 07:46 Methimazole 5 Mg Tab PO 5 mg DAILY IAN Administration Cinacalcet 15 Mg 0 each 03/10/24 09:00 04/03/24 07:47 Tablet PO 04/09/24 08:59 1 each DAILY IAN Administration Pantoprazole Sodium 40 mg 03/09/24 09:00 04/03/24 07:46 Pantoprazole 40 Mg Tablet PO 40 mg QAM IAN Administration Polyethylene Glycol 17 gm 03/22/24 09:00 04/03/24 07:45 Polyethylene Glycol 3350 17 Gm Powd.Pack PO 17 gm QAM IAN Administration Potassium Chloride 10 meq 03/08/24 21:00 04/02/24 21:47 Potassium Chloride 10 Meq Er Tablet PO 10 meq HS IAN Administration Simvastatin 10 mg 03/08/24 21:00 04/02/24 21:47 Simvastatin 10 Mg Tablet PO 10 mg HS IAN Administration Sotalol HCl 40 mg 03/27/24 14:00 04/03/24 07:46 Sotalol Hcl 40 Mg Tablet PO 40 mg DAILY IAN Administration Venlafaxine HCl 150 mg 03/09/24 09:00 04/03/24 07:47 Venlafaxine Hcl Xr 75 Mg Cap.Er.24h PO 150 mg DAILY IAN Administration Vitamin D 1,000 units 03/09/24 09:00 04/03/24 07:46 Cholecalciferol 1,000 Units Tablet PO 1,000 units DAILY IAN Administration Warfarin Sodium 9 mg 03/11/24 17:00 03/13/24 17:40 Warfarin (*Pbkc) 3 Mg Tablet PO 9 mg DAILY@1700 IAN Administration Warfarin Sodium 6 mg 03/22/24 17:00 03/28/24 16:53 Warfarin (*Pbkc) 3 Mg Tablet PO 6 mg DAILY@1700 IAN Administration Radiology Results: ITS Impressions Chest/Abdomen/Pelvis CT 03/21/24 12:36 IMPRESSION: CHEST: 1. No acute cardiopulmonary pathology. 2. Compression fracture of T6. MRI evaluation advised. ABDOMEN/PELVIS: 1. Hematoma in the left anterior abdominal wall. 2. Constipation. Lexiscan Stress Test 03/22/24 12:28 IMPRESSION: 1. No definite ischemia or infarct. 2. Normal left ventricular ejection fraction measuring 56%. Lumbar Spine X-Ray 03/23/24 13:40 IMPRESSION: 1. Mild lumbar spondylosis. 2. Lumbar dextroscoliosis. Cervical Spine CT 03/24/24 15:01 IMPRESSION: 1. Moderate cervical spondylosis, stable from 11/13/2020. 2. Cervicothoracic levoscoliosis. Chest CTA 03/29/24 12:58 IMPRESSION: 1. Bilateral pneumonia in the upper lobes and lower lobes. 2. No pulmonary embolus. 3. Liver surface nodularity suspicious for cirrhosis. Modified Barium Swallow 03/31/24 15:19 IMPRESSION: Transient laryngeal penetration without aspiration with swallows of large amounts of thin liquids. Please correlate with speech pathologist findings and specific feeding recommendations. Chest X-Ray 04/01/24 20:45 IMPRESSION: Moderate pulmonary vascular congestion with a large left-sided pleural effusion Labs Labs: Laboratory Results - last 24 hr 04/02/24 04/03/24 04/03/24 20:27 06:30 07:49 WBC 7.2 RBC 2.70 L Hgb 8.7 L Hct 28.2 L MCV 104.4 H MCH 32.2 MCHC 30.9 L RDW 14.2 Plt Count 345 MPV 11.8 H Immature Gran % (Auto) 2.1 H Neut % (Auto) 62.3 Lymph % (Auto) 17.[address] [facility] % (Auto) 13.6 H Eos % (Auto) 3.4 Baso % (Auto) 0.7 Lymph # (Auto) 1.28 [facility] # (Auto) 1.0 H Eos # (Auto) 0.2 Baso # (Auto) 0.1 Abs Immat Gran (auto) 0.15 H Absolute Neuts (auto) 4.5 Absolute Nucleated RBC 0.000 Nucleated RBC % 0.0 PT 36.4 H INR 3.6 Sodium 135 L Potassium 4.1 Chloride 100 Carbon Dioxide 32 H Anion Gap 3 L BUN 24 H Creatinine 1.38 H Estim Creat Clear Calc 32 Estimated GFR 37 L Glucose 56 L* POC Capillary Glucose 94 91 Lactic Acid 0.7 Calcium 9.4 Magnesium 2.2 Total Bilirubin 0.5 AST 29 ALT 15 Alkaline Phosphatase 88 Total Protein 6.0 L Albumin 2.8 L 04/03/24 08:32 WBC RBC Hgb Hct MCV MCH MCHC RDW Plt Count MPV Immature Gran % (Auto) Neut % (Auto) Lymph % (Auto) [facility] [place] [facility] % (Auto) Eos % (Auto) Baso % (Auto) Lymph # (Auto) [facility] # (Auto) Eos # (Auto) Baso # (Auto) Abs Immat Gran (auto) Absolute Neuts (auto) Absolute Nucleated RBC Nucleated RBC % PT INR Sodium Potassium Chloride Carbon Dioxide Anion Gap BUN Creatinine Estim Creat Clear Calc Estimated GFR Glucose POC Capillary Glucose 95 Lactic Acid Calcium Magnesium Total Bilirubin AST ALT Alkaline Phosphatase Total Protein Albumin Quality VTE Prophylaxis VTE prophylaxis: pharmacologic ordered
[2024-04-03 10:36] LABS: Glucose Point of Care 94 mg/dl (65-105)
[2024-04-03 12:32] LABS: Glucose Point of Care 87 mg/dl (65-105)
[2024-04-03] MEDS: FUROSEMIDE INJ 40 MG/4 ML VIAL 20 MG IV PUSH (16:26)
[2024-04-03] MEDS: ACETAMINOPHEN 500 MG TABLET 1000 MG PO (16:27)
[2024-04-03] MEDS: CYCLOBENZAPRINE HCL 5 MG TABLET PO (16:27)
[2024-04-03 16:48] LABS: Glucose Point of Care 79 mg/dl (65-105)
[2024-04-03] MEDS: DEXTROMETHORPHAN POLISTIREX 60 MG/10 ML SYRINGE PO (20:47)
[2024-04-03] MEDS: SIMVASTATIN 10 MG TABLET PO (20:47)
[2024-04-03] MEDS: POTASSIUM CHLORIDE 10 MEQ ER TABLET PO (20:47)
[2024-04-03] MEDS: MELATONIN 5 MG TABLET PO (20:47)
[2024-04-03] MEDS: ALPRAZolam (*CRX) 0.25 MG TABLET PO (20:47)
[2024-04-03 23:08] LABS: Glucose Point of Care 124 mg/dl (65-105)
[2024-04-04] VITALS (17 sets, daily range): BP systolic 116–131; BP diastolic 56–66; PULSE 52–93; RESP 16–20; TEMP 35.8–37.1; O2SAT 90–99
[2024-04-04] MEDS: LEVALBUTEROL NEB 1.25 MG/3 ML INHALATION ×4 (01:13→19:53)
[2024-04-04] MEDS: HYDROcodone/acetaminophen (*CRX) 5-325 MG TABLET 1 TAB PO (06:08)
[2024-04-04 07:10] LABS: Basophils Percent Auto 0.7 % (0.2-1.2); Eosinophils Absolute Auto 0.2 K/mm3 (0-0.3); Eosinophils Percent Auto 3.7 % (0-4.4); Hematocrit 27.8 % (37.0-47.0); Hemoglobin 8.5 g/dL (12.0-15.0); Immature Granulocyte Absolute 0.23 K/mm3 (0.00-0.031); Immature Granulocyte Percent A 3.7 % (0-0.5); Lymphocytes Absolute Auto 0.99 K/mm3 (0.9-3.2); Lymphocytes Percent Auto 16.1 % (18.3-44.2); Mean Corpuscular HGB Conc 30.6 g/dl (32-36); Mean Corpuscular Hemoglobin 31.7 pg (26-34); Mean Corpuscular Volume 103.7 fl (80-100); Monocytes Absolute Auto 0.9 K/mm3 (0.1-0.6); Monocytes Percent Auto 13.8 % (2.6-8.5); Neutrophils Absolute Auto 3.8 K/mm3 (1.3-6.7); Platelet Count Result 336 k/mm3 (150-375); Red Blood Count 2.68 M/mm3 (4.2-5.4); Red Cell Distribution Width 14.2 % (11.5-14.5); White Blood Count 6.1 K/mm3 (4.5-10.0)
[2024-04-04 07:23] LABS: Alanine Aminotransferase 16 U/L (6-35); Albumin Level 2.8 g/dL (3.5-5.1); Alkaline Phosphatase 80 U/L (38-126); Anion Gap 5 mmol/L (4-12); Aspartate Amino Transferase 27 U/L (14-36); Bilirubin,Total 0.5 mg/dL (0.2-1.3); Blood Urea Nitrogen 24 mg/dL (7-17); Calcium 9.5 mg/dL (8.4-10.2); Carbon Dioxide 30 mmol/L (22-30); Chloride 99 mmol/L (98-107); Estimated CRCL calculation 35 ml/min; Estimated Glomerular Filt Rate 41; Glucose 66 mg/dL (65-110); Magnesium 1.7 mg/dL (1.6-2.3); Potassium 4.2 mmol/L (3.4-5.0); Sodium 134 mmol/L (137-145)
[2024-04-04 07:26] LABS: Prothrombin Time 31.5 Seconds (11.1-14.7)
[2024-04-04 08:15] LABS: Glucose Point of Care 84 mg/dl (65-105)
[2024-04-04] MEDS: ACETYLCYSTEINE 20% INHAL SOLN 800 MG/4 ML VIAL 200 MG INHALATION ×2 (08:21→19:53)
[2024-04-04] MEDS: polyethylene glycoL 3350 17 GM POWD.PACK PO (09:36)
[2024-04-04] MEDS: FUROSEMIDE INJ 40 MG/4 ML VIAL 20 MG IV PUSH ×2 (09:38→17:07)
[2024-04-04] MEDS: CINACALCET PO (09:38)
[2024-04-04] MEDS: VENLAFAXINE HCL XR 75 MG CAP.ER.24H 150 MG PO (09:39)
[2024-04-04] MEDS: GABAPENTIN 300 MG CAPSULE PO ×2 (09:39→21:31)
[2024-04-04] MEDS: SOTALOL HCL 40 MG TABLET PO (09:39)
[2024-04-04] MEDS: guaiFENesin 12 HR 600 MG TABCR 1200 MG PO ×2 (09:39→21:32)
[2024-04-04] MEDS: CHOLECALCIFEROL 1,000 UNITS TABLET 1000 UNITS PO (09:40)
[2024-04-04] MEDS: methiMAzole 5 MG TAB PO (09:40)
[2024-04-04] MEDS: CEFEPIME 2 GM/NS 50 ML 2 GM/50 ML BAG IVPB ×2 (09:40→21:31)
[2024-04-04] MEDS: PANTOPRAZOLE 40 MG TABLET PO (09:40)
[2024-04-04] MEDS: CYANOCOBALAMIN 1,000 MCG TABLET 1000 MCG PO (09:40)
[2024-04-04] MEDS: DOXYCYCLINE HYCLATE 100 MG TABLET PO ×2 (09:40→21:31)
--- NOTE | 2024-04-04 09:44 | PCNFU ---
Nutrition Follow-Up Complete: Inadequate oral intake related to loss of appetite as evidenced by recent intakes 10-75% Adequate PO intake at least 75% meals and supplements - Progressing slowly. Intakes 0-80% Goal: Pt current nutrition is Heart healthy diet/ soft & bite size L6 . Ensure Compact BID (220 kcal, 9 g protein). Nutrition recommendation: No new nutrition recommendations. Continue current nutrition care plan and orders. Agree with orders. Last recorded weight is 78.6 kg. Bowel Motility: +1 BM 04/03/24 Labs Reviewed: Hgb 8.5, Hct 27.8, Alb 2.8, Na 134, BUN 24, Cre 1.25 Meds Noted: Protonix, coumadin, Miralax, lasix Skin: No skin issues Additional Notes: Intakes are fair. MBSS performed with normal findings. SBS L 6 for chewing. Continue current nutrition care plan and orders. Monitoring intakes, weights, labs, supplement tolerance, plan of care Follow up in 5 days
[2024-04-04] MEDS: MAGNESIUM SULF 2 GM/WATER 50ML 2 GM/50 ML BAG IVPB (10:23)
--- NOTE | 2024-04-04 10:28 | PCPTNOTE ---
On 04/04/24, the student, PADMA Alvarez, provided care and completed [facility] documentation on this patient. I have reviewed the student's documentation and agree with the findings.
--- NOTE | 2024-04-04 11:41 | P.PNIM_ITS ---
Progress Note: A&P Assessment and Plan (1) Mechanical heart valve present: Code(s): Z95.2 - Presence of prosthetic heart valve Status: Acute Assessment and Plan: Supratherapeutic INR 3.0 Hold warfarin Evidence of hematoma in the left anterior abdominal wall 3 x 2.5 cm monitor (2) Palpitations: Code(s): R00.2 - Palpitations Status: Acute Assessment and Plan: - Likely due to PAF with RVR. - Better after hydration and resuming home meds. resolved (3) Acute kidney injury: Code(s): N17.9 - Acute kidney failure, unspecified Status: Acute Assessment and Plan: Ddx pre-renal vs poor PO intake vs meds vs other. s/p 500 bolus with tachycardia --Resumed lasix --Creatinine stable resolved (4) HTN (hypertension): Qualifiers: Hypertension type: primary hypertension Qualified Code(s): I10 - Essential (primary) hypertension Code(s): I10 - Essential (primary) hypertension Status: Acute Assessment and Plan: - Appears well controlled. -On Sotalol, Metoprolol on hold - Follow VS (5) Hyperlipidemia: Qualifiers: Hyperlipidemia type: mixed hyperlipidemia Qualified Code(s): E78.2 - Mixed hyperlipidemia Code(s): E78.5 - Hyperlipidemia, unspecified Status: Acute Assessment and Plan: * continue simvastatin (6) Shortness of breath: Code(s): R06.02 - Shortness of breath Status: Acute Assessment and Plan: from p[place] continue antibiotics (7) Anemia: Code(s): D64.9 - Anemia, unspecified Status: Acute Assessment and Plan: Blood count trending down since admission but may be dilutional 14.2>8.7 Iron panel showing iron deficiency anemia, Total Iron and Tsat low. B12 636. LDH 245 --iron sucrose 1000mg monitor H and H Gi plans for endoscopy when INR is below 2.5 and on heparin infusion INR 3.0 today (8) Heart failure, diastolic, acute on chronic: Code(s): I50.33 - Acute on chronic diastolic (congestive) heart failure Status: Acute Assessment and Plan: 08/24/23 Echo: TDS. EF 45%, biatrial enlargement, suspect (YADIRA 1.4 cm2), mod MR, mild-mod TR. s/p 500ml fluid bolus, now back on IV lasix NT-proBNP 10,000 continue Lasix 20mg IV bid TTE * Flipped back into A fib RVR overnight * Repeat EKG showing new LBBB--Cardiology was notified. * Mild troponin bump--likely demand ischemia * No significant finding in Lexiscan * monitor (9) Pneumonia: Code(s): J18.9 - Pneumonia, unspecified organism Status: Acute Assessment and Plan: CT chest done 03/30/[address] was obtained due to worsening leukocytosis and tachypnea HAP Patient completed initial Day 09/12 on Cefepime and Doxycycline leukocytosis resolving MRSA negative (10) Atrial fibrillation with RVR: Code(s): I48.91 - Unspecified atrial fibrillation Status: Acute Assessment and Plan: on Sotalol and Warfarin which is on hold due to supratherapeutic INR monitor Plan Hypoglycemia, resolved s/p Dextrose BG now 84 this morning Insulin and Cpeptide pending monitor closely Dysphagia MBS no aspiration noted Speech recommended soft and bite size level 6 as patient has no lower dentition DVT prophylaxis on Warfarin which is on hold for elevated INR Subjective Date/time seen: 04/04/24 11:41 Interval history: Comfortable at bedside INR 3.0, still holding Coumadin oxygen improving, now on 1 liters Patient is currently awaiting endoscopy GI noted they are waiting for INR to go below 2.5, at which point patient will be placed on heparin infusion pending Endoscopy. Review of Systems Review of Systems: All systems reviewed & are unremarkable except as noted in HPI and below Constitutional: Constitutional: Reports as per HPI and Reports no additional constitutional complaints Eyes: Eyes: Reports as per HPI and Reports no additional eye complaints ENT: Reports system reviewed and no additional complaints, except as documented and Reports as per HPI Cardiovascular: Cardiovascular: Reports as per HPI and Reports no additional cardiovascular complaints Respiratory: Respiratory: Reports as per HPI and Reports no additional respiratory complaints Gastrointestinal: Gastrointestinal: Reports as per HPI and Reports no additional gastrointestinal complaints Genitourinary: Genitourinary: Reports no additional female genitourinary complaints and Reports as per HPI Musculoskeletal: Musculoskeletal: Reports no additional musculoskeletal complaints and Reports as per HPI Integumentary/Breasts: Skin/Breast: Reports system reviewed and no additional complaints, except as docu and Reports as per HPI Neurologic: Reports system reviewed and no additional complaints, except as documented and Reports as per HPI Psychiatric: Psychiatric: Reports no additional psychiatric complaints and Reports as per HPI Exam Narrative: General: In no acute distress, well nourished Cardiac: Normal S1 and S2. NSR, No murmur, gallops or friction rubs, peripheral pulses intact. Respiratory: Lungs clear bilaterally , no adventitious lung sounds, currently on room air, raspy cough Gastrointestinal: soft, non-distended, non-tender, normoactive bowel sounds. : voiding without difficulty. Neuro: Alert and oriented x4 Objective Data Vital Signs Vital Signs: Vital Signs - 24 hr 04/03/24 12:00 04/03/24 14:23 04/03/24 14:23 Temperature Pulse Rate 67 56 L Respiratory Rate 24 H Blood Pressure Pulse Oximetry 92 Oxygen Delivery Nasal Cannula Oxygen Flow Rate 1 Fraction of Inspired Oxygen 24 04/03/24 14:31 04/03/24 15:43 04/03/24 16:00 Temperature 98.3 F Pulse Rate 65 59 L 61 Respiratory Rate 24 H 24 H Blood Pressure 129/60 Pulse Oximetry 96 Oxygen Delivery Oxygen Flow Rate Fraction of Inspired Oxygen 04/03/24 19:10 04/03/24 19:10 04/03/24 19:28 Temperature Pulse Rate 57 L 55 L Respiratory Rate 23 H 23 H Blood Pressure Pulse Oximetry 92 Oxygen Delivery Nasal Cannula Oxygen Flow Rate 1 Fraction of Inspired Oxygen 24 04/03/24 20:00 04/03/24 20:00 04/03/24 20:00 Temperature 98.7 F Pulse Rate 65 64 Respiratory Rate 16 Blood Pressure 125/63 Pulse Oximetry 92 95 Oxygen Delivery Nasal Cannula Oxygen Flow Rate 1 Fraction of Inspired Oxygen 04/03/24 22:42 04/04/24 00:00 04/04/24 00:00 Temperature 98.7 F Pulse Rate 62 60 64 Respiratory Rate 19 20 Blood Pressure 131/66 Pulse Oximetry 94 95 Oxygen Delivery BiPAP Oxygen Flow Rate Fraction of Inspired Oxygen 04/04/24 01:13 04/04/24 01:13 04/04/24 01:56 Temperature Pulse Rate 57 L 57 L 56 L Respiratory Rate 18 18 16 Blood Pressure Pulse Oximetry 95 Oxygen Delivery BiPAP Oxygen Flow Rate Fraction of Inspired Oxygen 04/04/24 04:00 04/04/24 08:00 04/04/24 08:24 Temperature Pulse Rate 60 69 Respiratory Rate Blood Pressure Pulse Oximetry 90 Oxygen Delivery Nasal Cannula Oxygen Flow Rate 1 Fraction of Inspired Oxygen 04/04/24 08:24 04/04/24 08:46 04/04/24 09:39 Temperature Pulse Rate 52 L 67 61 Respiratory Rate 16 16 Blood Pressure Pulse Oximetry Oxygen Delivery Oxygen Flow Rate Fraction of Inspired Oxygen Intake/Output Intake/Output: Intake & Output 04/01/24 04/02/24 04/03/24 04/04/24 23:59 23:59 23:59 23:59 Intake Total 1870 900 970 170 Output Total 1850 3275 2150 Balance 68 -9394 -6880 170 Meds/Results Medications: Active Medications Generic Name Dose Route Start Last Admin Trade Name Freq PRN Reason Stop Dose Admin Acetaminophen 1,000 mg 03/10/24 10:04 04/03/24 16:27 Acetaminophen 500 Mg Tablet PO 1,000 mg Q6H PRN Administration Mild Pain (1-3) or Fever Hydrocodone Bitart/Acetaminophen 1 tab 03/08/24 17:21 04/04/24 06:08 Hydrocodone/Acetaminophen (*Crx) 5-325 Mg Tablet PO 04/05/24 23:59 1 tab Q6H PRN Administration Pain Rated 4-6 Acetylcysteine 200 mg 03/22/24 20:00 04/04/24 08:21 Acetylcysteine 20% Inhal Soln 800 Mg/4 Ml Vial INHALATION 200 mg Q12HRT IAN Administration Alprazolam 0.25 mg 03/08/24 17:21 04/03/24 20:47 Alprazolam (*Crx) 0.25 Mg Tablet PO 04/05/24 23:59 0.25 mg HS PRN Administration Anxiety Benzocaine 1 lozenge 03/10/24 18:17 04/01/24 18:35 Benzocaine/Menthol (*Bkc) 18 Ea Lozenge PO 1 lozenge PRN PRN Administration Sore Throat Cyanocobalamin 1,000 mcg 03/09/24 09:00 04/04/24 09:40 Cyanocobalamin 1,000 Mcg Tablet PO 1,000 mcg DAILY IAN Administration Cyclobenzaprine HCl 5 mg 03/19/24 14:03 04/03/24 16:27 Cyclobenzaprine Hcl 5 Mg Tablet PO 5 mg Q8H PRN Administration Muscle Spasm Dextromethorphan Polistirix 60 mg 03/28/24 09:00 04/04/24 10:26 Dextromethorphan Polistirex 60 Mg/10 Ml Syringe PO Not Given Q12HR IAN Diclofenac Sodium 1 applic 03/10/24 10:04 03/27/24 00:50 Diclofenac Sodium 1% 100 Gm Gel (*Bkc) TOPICAL 1 applic QID PRN Administration joint pain Doxycycline Hyclate 100 mg 04/01/24 21:00 04/04/24 09:40 Doxycycline Hyclate 100 Mg Tablet PO 04/04/24 23:59 100 mg Q12HR IAN Administration Furosemide 20 mg 03/16/24 09:00 04/01/24 09:18 Furosemide 20 Mg Tablet PO 20 mg DAILY IAN Administration Furosemide 20 mg 04/03/24 17:00 04/04/24 09:38 Furosemide Inj 40 Mg/4 Ml Vial IV PUSH 20 mg BID IAN Administration Gabapentin 300 mg 03/08/24 21:00 04/04/24 09:39 Gabapentin 300 Mg Capsule PO 300 mg Q12HR IAN Administration Guaifenesin 1,200 mg 03/13/24 12:50 04/04/24 09:39 Guaifenesin 12 Hr 600 Mg Tabcr PO 1,200 mg Q12HR IAN Administration Hydromorphone HCl 0.2 mg 03/21/24 11:31 03/21/24 11:54 Hydromorphone Hcl Inj (*Crx) 1 Mg/Ml Syr IV PUSH 0.2 mg Q6H PRN Administration Pain Rated 7-10 Cefepime HCl 2 gm in 50 mls @ 100 mls/hr 03/29/24 20:00 04/04/24 10:10 Maxipime 2 Gm/Ns 50 Ml IVPB 04/04/24 23:59 Infused Q12H IAN Infusion Levalbuterol HCl 1.25 mg 03/22/24 14:00 04/04/24 08:20 Levalbuterol Neb 1.25 Mg/3 Ml INHALATION 1.25 mg Q6HRT IAN Administration Melatonin 5 mg 03/15/24 21:00 04/03/24 20:47 Melatonin 5 Mg Tablet PO 5 mg HS IAN Administration Methimazole 5 mg 03/09/24 09:00 04/04/24 09:40 Methimazole 5 Mg Tab PO 5 mg DAILY IAN Administration Cinacalcet 15 Mg 0 each 03/10/24 09:00 04/04/24 09:38 Tablet PO 04/09/24 08:59 1 each DAILY IAN Administration Pantoprazole Sodium 40 mg 03/09/24 09:00 04/04/24 09:40 Pantoprazole 40 Mg Tablet PO 40 mg QAM IAN Administration Polyethylene Glycol 17 gm 03/22/24 09:00 04/04/24 09:36 Polyethylene Glycol 3350 17 Gm Powd.Pack PO 17 gm QAM IAN Administration Potassium Chloride 10 meq 03/08/24 21:00 04/03/24 20:47 Potassium Chloride 10 Meq Er Tablet PO 10 meq HS IAN Administration Simvastatin 10 mg 03/08/24 21:00 04/03/24 20:47 Simvastatin 10 Mg Tablet PO 10 mg HS IAN Administration Sotalol HCl 40 mg 03/27/24 14:00 04/04/24 09:39 Sotalol Hcl 40 Mg Tablet PO 40 mg DAILY IAN Administration Venlafaxine HCl 150 mg 03/09/24 09:00 04/04/24 09:39 Venlafaxine Hcl Xr 75 Mg Cap.Er.24h PO 150 mg DAILY IAN Administration Vitamin D 1,000 units 03/09/24 09:00 04/04/24 09:40 Cholecalciferol 1,000 Units Tablet PO 1,000 units DAILY IAN Administration Warfarin Sodium 9 mg 03/11/24 17:00 03/13/24 17:40 Warfarin (*Pbkc) 3 Mg Tablet PO 9 mg DAILY@1700 IAN Administration Warfarin Sodium 6 mg 03/22/24 17:00 03/28/24 16:53 Warfarin (*Pbkc) 3 Mg Tablet PO 6 mg DAILY@1700 IAN Administration Radiology Results: ITS Impressions Chest/Abdomen/Pelvis CT 03/21/24 12:36 IMPRESSION: CHEST: 1. No acute cardiopulmonary pathology. 2. Compression fracture of T6. MRI evaluation advised. ABDOMEN/PELVIS: 1. Hematoma in the left anterior abdominal wall. 2. Constipation. Lexiscan Stress Test 03/22/24 12:28 IMPRESSION: 1. No definite ischemia or infarct. 2. Normal left ventricular ejection fraction measuring 56%. Lumbar Spine X-Ray 03/23/24 13:40 IMPRESSION: 1. Mild lumbar spondylosis. 2. Lumbar dextroscoliosis. Cervical Spine CT 03/24/24 15:01 IMPRESSION: 1. Moderate cervical spondylosis, stable from 11/13/2020. 2. Cervicothoracic levoscoliosis. Chest CTA 03/29/24 12:58 IMPRESSION: 1. Bilateral pneumonia in the upper lobes and lower lobes. 2. No pulmonary embolus. 3. Liver surface nodularity suspicious for cirrhosis. Modified Barium Swallow 03/31/24 15:19 IMPRESSION: Transient laryngeal penetration without aspiration with swallows of large amounts of thin liquids. Please correlate with speech pathologist findings and specific feeding recommendations. Chest X-Ray 04/01/24 20:45 IMPRESSION: Moderate pulmonary vascular congestion with a large left-sided pleural effusion Labs Labs: Laboratory Results - last 24 hr 04/03/24 04/03/24 04/03/24 12:29 16:46 20:15 WBC RBC Hgb Hct MCV MCH MCHC RDW Plt Count MPV Immature Gran % (Auto) Neut % (Auto) Lymph % (Auto) Sharp % (Auto) Eos % (Auto) Baso % (Auto) Lymph # (Auto) Sharp # (Auto) Eos # (Auto) Baso # (Auto) Abs Immat Gran (auto) Absolute Neuts (auto) Absolute Nucleated RBC Nucleated RBC % PT INR Sodium Potassium Chloride Carbon Dioxide Anion Gap BUN Creatinine Estim Creat Clear Calc Estimated GFR Glucose POC Capillary Glucose 87 79 124 H Calcium Magnesium Total Bilirubin AST ALT Alkaline Phosphatase Total Protein Albumin 04/04/24 04/04/24 06:55 08:12 WBC 6.1 RBC 2.68 L Hgb 8.5 L Hct 27.8 L MCV 103.7 H MCH 31.7 MCHC 30.6 L RDW 14.2 Plt Count 336 MPV 12.0 H Immature Gran % (Auto) 3.7 H Neut % (Auto) 62.0 Lymph % (Auto) 16.1 L Sharp % (Auto) 13.8 H Eos % (Auto) 3.7 Baso % (Auto) 0.7 Lymph # (Auto) 0.99 Sharp # (Auto) 0.9 H Eos # (Auto) 0.2 Baso # (Auto) 0.0 Abs Immat Gran (auto) 0.23 H Absolute Neuts (auto) 3.8 Absolute Nucleated RBC 0.000 Nucleated RBC % 0.0 PT 31.5 H INR 3.0 Sodium 134 L Potassium 4.2 Chloride 99 Carbon Dioxide 30 Anion Gap 5 BUN 24 H Creatinine 1.25 H Estim Creat Clear Calc 35 Estimated GFR 41 L Glucose 66 POC Capillary Glucose 84 Calcium 9.5 Magnesium 1.7 Total Bilirubin 0.5 AST 27 ALT 16 Alkaline Phosphatase 80 Total Protein 6.0 L Albumin 2.8 L Quality VTE Prophylaxis VTE prophylaxis: pharmacologic ordered
[2024-04-04 12:05] LABS: Glucose Point of Care 91 mg/dl (65-105)
[2024-04-04] MEDS: ACETAMINOPHEN 500 MG TABLET 1000 MG PO ×2 (15:59→21:31)
[2024-04-04 16:51] LABS: Glucose Point of Care 94 mg/dl (65-105)
[2024-04-04] MEDS: MELATONIN 5 MG TABLET PO (21:31)
[2024-04-04] MEDS: SIMVASTATIN 10 MG TABLET PO (21:31)
[2024-04-04] MEDS: POTASSIUM CHLORIDE 10 MEQ ER TABLET PO (21:31)
[2024-04-04 23:04] LABS: Glucose Point of Care 134 mg/dl (65-105)
[2024-04-05] VITALS (19 sets, daily range): BP systolic 119–145; BP diastolic 53–99; PULSE 48–95; RESP 14–18; TEMP 35.8–36.8; O2SAT 91–96
[2024-04-05 01:48] LABS: C-Peptide 2.25 ng/mL (0.80-3.85)
[2024-04-05] MEDS: LEVALBUTEROL NEB 1.25 MG/3 ML INHALATION ×4 (02:05→20:40)
[2024-04-05 06:16] LABS: INR 2.7; Prothrombin Time 29.2 Seconds (11.1-14.7)
[2024-04-05] MEDS: ACETYLCYSTEINE 20% INHAL SOLN 800 MG/4 ML VIAL 200 MG INHALATION ×2 (07:37→20:40)
[2024-04-05 08:26] LABS: Glucose Point of Care 65 mg/dl (65-105)
[2024-04-05 08:46] LABS: Glucose Point of Care 77 mg/dl (65-105)
[2024-04-05] MEDS: ACETAMINOPHEN 500 MG TABLET 1000 MG PO ×2 (09:47→21:44)
[2024-04-05] MEDS: polyethylene glycoL 3350 17 GM POWD.PACK PO (09:47)
[2024-04-05] MEDS: guaiFENesin 12 HR 600 MG TABCR 1200 MG PO (09:49)
[2024-04-05] MEDS: FUROSEMIDE INJ 40 MG/4 ML VIAL 20 MG IV PUSH ×2 (09:49→17:17)
[2024-04-05] MEDS: PANTOPRAZOLE 40 MG TABLET PO (09:49)
[2024-04-05] MEDS: CHOLECALCIFEROL 1,000 UNITS TABLET 1000 UNITS PO (09:50)
[2024-04-05] MEDS: methiMAzole 5 MG TAB PO (09:50)
[2024-04-05] MEDS: SOTALOL HCL 40 MG TABLET PO (09:50)
[2024-04-05] MEDS: GABAPENTIN 300 MG CAPSULE PO ×2 (09:50→21:44)
[2024-04-05] MEDS: CYANOCOBALAMIN 1,000 MCG TABLET 1000 MCG PO (09:50)
[2024-04-05] MEDS: VENLAFAXINE HCL XR 75 MG CAP.ER.24H 150 MG PO (09:50)
[2024-04-05] MEDS: CINACALCET PO (09:51)
[2024-04-05 11:48] LABS: Glucose Point of Care 82 mg/dl (65-105)
--- NOTE | 2024-04-05 12:15 | P.PNIM_ITS ---
Progress Note: A&P Assessment and Plan (1) Mechanical heart valve present: Code(s): Z95.2 - Presence of prosthetic heart valve Status: Acute Assessment and Plan: 04/05 INR 2.7 Continue warfarin warfarin Evidence of hematoma in the left anterior abdominal wall 3 x 2.5 cm monitor (2) Palpitations: Code(s): R00.2 - Palpitations Status: Acute Assessment and Plan: - Likely due -to PAF with RVR. -continue sotalol 40 mg p.o. q.d. - Better after hydration and resuming home meds. resolved (3) Acute kidney injury: Code(s): N17.9 - Acute kidney failure, unspecified Status: Acute Assessment and Plan: Ddx pre-renal vs poor PO intake vs meds vs other. s/p 500 bolus with tachycardia --Resumed lasix --Creatinine stable resolved (4) HTN (hypertension): Qualifiers: Hypertension type: primary hypertension Qualified Code(s): I10 - Essential (primary) hypertension Code(s): I10 - Essential (primary) hypertension Status: Acute Assessment and Plan: - Appears well controlled. -On Sotalol - Follow VS (5) Hyperlipidemia: Qualifiers: Hyperlipidemia type: mixed hyperlipidemia Qualified Code(s): E78.2 - Mixed hyperlipidemia Code(s): E78.5 - Hyperlipidemia, unspecified Status: Acute Assessment and Plan: * continue simvastatin (6) Shortness of breath: Code(s): R06.02 - Shortness of breath Status: Acute Assessment and Plan: Results (7) Anemia: Code(s): D64.9 - Anemia, unspecified Status: Acute Assessment and Plan: Blood count trending down since admission but may be dilutional 14.2>8.7 Iron panel showing iron deficiency anemia, Total Iron and Tsat low. B12 636. LDH 245 --iron sucrose 1000mg monitor H and H Gi plans before planned endoscopy when INR is below 2.5 and on heparin infusion (currently plans outpatient endoscopy and colonoscopy) (8) Heart failure, diastolic, acute on chronic: Code(s): I50.33 - Acute on chronic diastolic (congestive) heart failure Status: Acute Assessment and Plan: 08/24/23 Echo: TDS. EF 45%, biatrial enlargement, suspect (YADIRA 1.4 cm2), mod MR, mild-mod TR. s/p 500ml fluid bolus, now back on IV lasix NT-proBNP 10,000 continue Lasix 20mg IV bid TTE * Flipped back into A fib RVR overnight * Repeat EKG showing new LBBB--Cardiology was notified. * Mild troponin bump--likely demand ischemia * No significant finding in Lexiscan * monitor (9) Pneumonia: Code(s): J18.9 - Pneumonia, unspecified organism Status: Acute Assessment and Plan: CT chest done 03/30/[address] was obtained due to worsening leukocytosis and tachypnea HAP Patient completed initial Completed Cefepime and Doxycycline leukocytosis resolving MRSA negative (10) Atrial fibrillation with RVR: Code(s): I48.91 - Unspecified atrial fibrillation Status: Acute Assessment and Plan: on Sotalol and Warfarin Plan Hypoglycemia, resolved s/p Dextrose Cpeptide normal monitor closely Dysphagia MBS no aspiration noted Speech recommended soft and bite size level 6 as patient has no lower dentition DVT prophylaxis on Warfarin which is on hold for elevated INR Subjective Date/time seen: 04/05/24 12:15 Interval history: Will resume her home dose warfarin 6 mg. Discussed with gastroenterology. P elvis can have this endoscopy/colonoscopy as an outpatient. Patient feels tired. Asking whether she is going to . Patient looks depressed due to prolonged hospitalization and multiple comorbid condition. Today called her sister Ms. Lucia and updated her. Review of Systems Review of Systems: All systems reviewed & are unremarkable except as noted in HPI and below Constitutional: Constitutional: Reports as per HPI and Reports no additional constitutional complaints Eyes: Eyes: Reports as per HPI and Reports no additional eye complaints ENT: Reports system reviewed and no additional complaints, except as documented and Reports as per HPI Cardiovascular: Cardiovascular: Reports as per HPI and Reports no additional cardiovascular complaints Respiratory: Respiratory: Reports as per HPI and Reports no additional respiratory complaints Gastrointestinal: Gastrointestinal: Reports as per HPI and Reports no additional gastrointestinal complaints Genitourinary: Genitourinary: Reports no additional female genitourinary complaints and Reports as per HPI Musculoskeletal: Musculoskeletal: Reports no additional musculoskeletal complaints and Reports as per HPI Integumentary/Breasts: Skin/Breast: Reports system reviewed and no additional complaints, except as docu and Reports as per HPI Neurologic: Reports system reviewed and no additional complaints, except as documented and Reports as per HPI Psychiatric: Psychiatric: Reports no additional psychiatric complaints and Reports as per HPI Exam Narrative: General: In no acute distress, well nourished Cardiac: Normal S1 and S2. NSR, No murmur, gallops or friction rubs, peripheral pulses intact. Respiratory: Lungs clear bilaterally , no adventitious lung sounds, currently on room air, raspy cough Gastrointestinal: soft, non-distended, non-tender, normoactive bowel sounds. : voiding without difficulty. Neuro: Alert and oriented x4 Objective Data Vital Signs Vital Signs: Vital Signs - 24 hr 04/04/24 13:58 04/04/24 14:02 04/04/24 14:11 Temperature 96.4 F L Pulse Rate 56 L 60 56 L Respiratory Rate 18 18 18 Blood Pressure 118/56 L Pulse Oximetry 98 Oxygen Delivery Oxygen Flow Rate 04/04/24 16:00 04/04/24 19:56 04/04/24 19:56 Temperature Pulse Rate 61 93 Respiratory Rate 16 Blood Pressure Pulse Oximetry 93 Oxygen Delivery Nasal Cannula Oxygen Flow Rate 1 04/04/24 20:00 04/04/24 20:00 04/04/24 20:06 Temperature Pulse Rate 62 88 Respiratory Rate 16 Blood Pressure Pulse Oximetry 99 Oxygen Delivery Nasal Cannula Oxygen Flow Rate 1 04/04/24 22:00 04/05/24 00:00 04/05/24 02:05 Temperature 98.8 F Pulse Rate 60 54 L 63 Respiratory Rate 16 16 Blood Pressure 116/57 L Pulse Oximetry 99 Oxygen Delivery Oxygen Flow Rate 04/05/24 02:13 04/05/24 04:00 04/05/24 05:10 Temperature 98.2 F Pulse Rate 61 53 L 60 Respiratory Rate 16 16 Blood Pressure 119/65 Pulse Oximetry 96 Oxygen Delivery Oxygen Flow Rate 04/05/24 07:39 04/05/24 07:39 04/05/24 07:50 Temperature Pulse Rate 62 68 Respiratory Rate 16 16 Blood Pressure Pulse Oximetry 93 Oxygen Delivery Nasal Cannula Oxygen Flow Rate 1 04/05/24 08:00 04/05/24 08:00 04/05/24 09:50 Temperature Pulse Rate 56 L 59 L 59 L Respiratory Rate Blood Pressure Pulse Oximetry 91 Oxygen Delivery Nasal Cannula Oxygen Flow Rate 1 04/05/24 12:00 Temperature Pulse Rate 48 L Respiratory Rate Blood Pressure Pulse Oximetry Oxygen Delivery Oxygen Flow Rate Intake/Output Intake/Output: Intake & Output 04/02/24 04/03/24 04/04/24 04/05/24 23:59 23:59 23:59 23:59 Intake Total 900 970 320 100 Output Total 3275 2150 [address] [facility] -2375 -1180 -1080 -900 Meds/Results Medications: Active Medications Generic Name Dose Route Start Last Admin Trade Name Freq PRN Reason Stop Dose Admin Acetaminophen 1,000 mg 03/10/24 10:04 04/05/24 09:47 Acetaminophen 500 Mg Tablet PO 1,000 mg Q6H PRN Administration Mild Pain (1-3) or Fever Hydrocodone Bitart/Acetaminophen 1 tab 03/08/24 17:21 04/04/24 06:08 Hydrocodone/Acetaminophen (*Crx) 5-325 Mg Tablet PO 04/15/24 23:59 1 tab Q6H PRN Administration Pain Rated 4-6 Acetylcysteine 200 mg 03/22/24 20:00 04/05/24 07:37 Acetylcysteine 20% Inhal Soln 800 Mg/4 Ml Vial INHALATION 200 mg Q12HRT IAN Administration Alprazolam 0.25 mg 03/08/24 17:21 04/03/24 20:47 Alprazolam (*Crx) 0.25 Mg Tablet PO 04/15/24 23:59 0.25 mg HS PRN Administration Anxiety Benzocaine 1 lozenge 03/10/24 18:17 04/01/24 18:35 Benzocaine/Menthol (*Bkc) 18 Ea Lozenge PO 1 lozenge PRN PRN Administration Sore Throat Cyanocobalamin 1,000 mcg 03/09/24 09:00 04/05/24 09:50 Cyanocobalamin 1,000 Mcg Tablet PO 1,000 mcg DAILY IAN Administration Cyclobenzaprine HCl 5 mg 03/19/24 14:03 04/03/24 16:27 Cyclobenzaprine Hcl 5 Mg Tablet PO 5 mg Q8H PRN Administration Muscle Spasm Diclofenac Sodium 1 applic 03/10/24 10:04 03/27/24 00:50 Diclofenac Sodium 1% 100 Gm Gel (*Bkc) TOPICAL 1 applic QID PRN Administration joint pain Furosemide 20 mg 03/16/24 09:00 04/01/24 09:18 Furosemide 20 Mg Tablet PO 20 mg DAILY IAN Administration Furosemide 20 mg 04/03/24 17:00 04/05/24 09:49 Furosemide Inj 40 Mg/4 Ml Vial IV PUSH 20 mg BID IAN Administration Gabapentin 300 mg 03/08/24 21:00 04/05/24 09:50 Gabapentin 300 Mg Capsule PO 300 mg Q12HR IAN Administration Guaifenesin/Dextromethorphan 2 tab 04/05/24 21:00 Guaifenesin 600 Mg/Dextromethorphan 30 Mg Sr Tab 12 Hr PO Q12HR IAN Levalbuterol HCl 1.25 mg 03/22/24 14:00 04/05/24 07:37 Levalbuterol Neb 1.25 Mg/3 Ml INHALATION 1.25 mg Q6HRT IAN Administration Melatonin 5 mg 03/15/24 21:00 04/04/24 21:31 Melatonin 5 Mg Tablet PO 5 mg HS IAN Administration Methimazole 5 mg 03/09/24 09:00 04/05/24 09:50 Methimazole 5 Mg Tab PO 5 mg DAILY IAN Administration Cinacalcet 15 Mg 0 each 03/10/24 09:00 04/05/24 09:51 Tablet PO 04/09/24 08:59 1 each DAILY IAN Administration Pantoprazole Sodium 40 mg 03/09/24 09:00 04/05/24 09:49 Pantoprazole 40 Mg Tablet PO 40 mg QAM IAN Administration Polyethylene Glycol 17 gm 03/22/24 09:00 04/05/24 09:47 Polyethylene Glycol 3350 17 Gm Powd.Pack PO 17 gm QAM IAN Administration Potassium Chloride 10 meq 03/08/24 21:00 04/04/24 21:31 Potassium Chloride 10 Meq Er Tablet PO 10 meq HS IAN Administration Simvastatin 10 mg 03/08/24 21:00 04/04/24 21:31 Simvastatin 10 Mg Tablet PO 10 mg HS IAN Administration Sotalol HCl 40 mg 03/27/24 14:00 04/05/24 09:50 Sotalol Hcl 40 Mg Tablet PO 40 mg DAILY IAN Administration Venlafaxine HCl 150 mg 03/09/24 09:00 04/05/24 09:50 Venlafaxine Hcl Xr 75 Mg Cap.Er.24h PO 150 mg DAILY IAN Administration Vitamin D 1,000 units 03/09/24 09:00 04/05/24 09:50 Cholecalciferol 1,000 Units Tablet PO 1,000 units DAILY IAN Administration Warfarin Sodium 9 mg 03/11/24 17:00 03/13/24 17:40 Warfarin (*Pbkc) 3 Mg Tablet PO 9 mg DAILY@1700 IAN Administration Warfarin Sodium 6 mg 03/22/24 17:00 03/28/24 16:53 Warfarin (*Pbkc) 3 Mg Tablet PO 6 mg DAILY@1700 IAN Administration Radiology Results: ITS Impressions Chest/Abdomen/Pelvis CT 03/21/24 12:36 IMPRESSION: CHEST: 1. No acute cardiopulmonary pathology. 2. Compression fracture of T6. MRI evaluation advised. ABDOMEN/PELVIS: 1. Hematoma in the left anterior abdominal wall. 2. Constipation. Lexiscan Stress Test 03/22/24 12:28 IMPRESSION: 1. No definite ischemia or infarct. 2. Normal left ventricular ejection fraction measuring 56%. Lumbar Spine X-Ray 03/23/24 13:40 IMPRESSION: 1. Mild lumbar spondylosis. 2. Lumbar dextroscoliosis. Cervical Spine CT 03/24/24 15:01 IMPRESSION: 1. Moderate cervical spondylosis, stable from 11/13/2020. 2. Cervicothoracic levoscoliosis. Chest CTA 03/29/24 12:58 IMPRESSION: 1. Bilateral pneumonia in the upper lobes and lower lobes. 2. No pulmonary embolus. 3. Liver surface nodularity suspicious for cirrhosis. Modified Barium Swallow 03/31/24 15:19 IMPRESSION: Transient laryngeal penetration without aspiration with swallows of large amounts of thin liquids. Please correlate with speech pathologist findings and specific feeding recommendations. Chest X-Ray 04/01/24 20:45 IMPRESSION: Moderate pulmonary vascular congestion with a large left-sided pleural effusion Labs Labs: Laboratory Results - last 24 hr 04/03/24 04/04/24 04/04/24 06:29 16:49 20:05 PT INR POC Capillary Glucose 94 134 H C-Peptide 2.25 04/05/24 04/05/24 04/05/24 05:27 08:18 08:42 PT 29.2 H INR 2.7 POC Capillary Glucose 65 77 C-Peptide 04/05/24 11:46 PT INR POC Capillary Glucose 82 C-Peptide Quality VTE Prophylaxis VTE prophylaxis: pharmacologic ordered Hospitalist MIPS Advance Care Plan I have confirmed that the patient's Advanced Care Plan is present, code status is documented, or surrogate decision maker is listed in patient medical record.: Yes Medication Reconciliation I have utilized all available resources to obtain, update and review the patients current medications (includes all prescriptions, OTC, herbals, cannabis, and nutritional supplements).: Yes
--- NOTE | 2024-04-05 13:50 | PCOTNOTE ---
Patient refused treatment this session. Patient stated I just want to be left alone. I don't want therapy. Patient reports no pain or nausea at this time.
[2024-04-05 16:55] LABS: Glucose Point of Care 79 mg/dl (65-105)
[2024-04-05] MEDS: WARFARIN (*PBKC) 3 MG TABLET 6 MG PO (17:17)
[2024-04-05 21:17] LABS: Glucose Point of Care 100 mg/dl (65-105)
[2024-04-05] MEDS: POTASSIUM CHLORIDE 10 MEQ ER TABLET PO (21:44)
[2024-04-05] MEDS: guaiFENesin 600 MG/DEXTROMETHORPHAN 30 MG SR TAB 12 HR 2 TAB PO (21:44)
[2024-04-05] MEDS: MELATONIN 5 MG TABLET PO (21:44)
[2024-04-05] MEDS: SIMVASTATIN 10 MG TABLET PO (21:44)
[2024-04-06] VITALS (20 sets, daily range): BP systolic 133–147; BP diastolic 56–92; PULSE 57–76; RESP 14–20; TEMP 36.2–37.2; O2SAT 90–97
[2024-04-06] MEDS: LEVALBUTEROL NEB 1.25 MG/3 ML INHALATION ×4 (02:11→19:44)
[2024-04-06 06:43] LABS: INR 3.1; Prothrombin Time 31.9 Seconds (11.1-14.7)
[2024-04-06 06:44] LABS: Hematocrit 31.5 % (37.0-47.0); Hemoglobin 9.7 g/dL (12.0-15.0); Mean Corpuscular HGB Conc 30.8 g/dl (32-36); Mean Corpuscular Hemoglobin 32.2 pg (26-34); Mean Corpuscular Volume 104.7 fl (80-100); Platelet Count Result 322 k/mm3 (150-375); Red Blood Count 3.01 M/mm3 (4.2-5.4); Red Cell Distribution Width 14.2 % (11.5-14.5); White Blood Count 4.6 K/mm3 (4.5-10.0)
[2024-04-06 07:08] LABS: Alanine Aminotransferase 15 U/L (6-35); Albumin Level 3.1 g/dL (3.5-5.1); Alkaline Phosphatase 94 U/L (38-126); Anion Gap 4 mmol/L (4-12); Aspartate Amino Transferase 35 U/L (14-36); Bilirubin,Total 0.4 mg/dL (0.2-1.3); Blood Urea Nitrogen 24 mg/dL (7-17); Calcium 10.3 mg/dL (8.4-10.2); Carbon Dioxide 36 mmol/L (22-30); Chloride 95 mmol/L (98-107); Estimated CRCL calculation 33 ml/min; Estimated Glomerular Filt Rate 40; Glucose 61 mg/dL (65-110); Potassium 3.9 mmol/L (3.4-5.0); Sodium 135 mmol/L (137-145)
[2024-04-06] MEDS: ACETYLCYSTEINE 20% INHAL SOLN 800 MG/4 ML VIAL 200 MG INHALATION ×2 (07:13→19:45)
[2024-04-06 08:40] LABS: Glucose Point of Care 84 mg/dl (65-105)
[2024-04-06] MEDS: CYANOCOBALAMIN 1,000 MCG TABLET 1000 MCG PO (09:20)
[2024-04-06] MEDS: SOTALOL HCL 40 MG TABLET PO (09:20)
[2024-04-06] MEDS: guaiFENesin 600 MG/DEXTROMETHORPHAN 30 MG SR TAB 12 HR 2 TAB PO ×2 (09:20→20:28)
[2024-04-06] MEDS: VENLAFAXINE HCL XR 75 MG CAP.ER.24H 150 MG PO (09:20)
[2024-04-06] MEDS: CHOLECALCIFEROL 1,000 UNITS TABLET 1000 UNITS PO (09:21)
[2024-04-06] MEDS: FUROSEMIDE INJ 40 MG/4 ML VIAL 20 MG IV PUSH ×2 (09:21→16:59)
[2024-04-06] MEDS: GABAPENTIN 300 MG CAPSULE PO ×2 (09:21→20:28)
[2024-04-06] MEDS: PANTOPRAZOLE 40 MG TABLET PO (09:22)
[2024-04-06] MEDS: methiMAzole 5 MG TAB PO (09:22)
[2024-04-06] MEDS: CINACALCET PO (09:22)
--- NOTE | 2024-04-06 10:05 | PCPTNOTE ---
On 04/06/24, the student, PADMA Alvarez, provided care and completed [facility] documentation on this patient. I have reviewed the student's documentation and agree with the findings.
[2024-04-06 12:08] LABS: Glucose Point of Care 81 mg/dl (65-105)
--- NOTE | 2024-04-06 12:48 | PM.PNCARD ---
Progress Note: A&P Assessment and Plan (1) Systolic dysfunction: Code(s): I51.9 - Heart disease, unspecified Status: Acute Assessment and Plan: 03/11/24 Moderate with EF 35-40% and was 45%, mild RVE, mechanical AV, mild AI, mod MR/TR. Euvolemic on Lasix. 03/22/24 Lexiscan myoview: Negative for ischemia. (2) Mechanical heart valve present: Code(s): Z95.2 - Presence of prosthetic heart valve Status: Acute Assessment and Plan: On Warfarin normally to keep INR 2.5-3.0 and managed by her PCP. Had anterior abdominal hematoma from Lovenox. Stopped Lovenox. (3) Atrial fibrillation: Code(s): I48.91 - Unspecified atrial fibrillation Status: Acute Assessment and Plan: Controlled now, but rate fluctuates here up to 160's bpm which could be due to volume depletion/anemia/pain. Normally she is not very fast on low dose Metoprolol 12.5 mg daily. Normally on Warfarin as per treatment for mechanical AVR. Decrease Metoprolol 25 mg TID. Started 03/25/24 Sotalol to keep her in sinus rhythm. Normal controlled heart on Sotalol 40 mg daily with rhythm changing from ectopic atrial rhythm to controlled HR in atrial fibrillation. Reviewed telemetry and print out on chart, no evidence of VT. Will sign off, please call with any questions. Upon discharge, have her f/u with me in 2 weeks. (4) Hyperlipidemia: Qualifiers: Hyperlipidemia type: mixed hyperlipidemia Qualified Code(s): E78.2 - Mixed hyperlipidemia Code(s): E78.5 - Hyperlipidemia, unspecified Status: Acute Assessment and Plan: On Simvastatin. (5) HTN (hypertension): Qualifiers: Hypertension type: primary hypertension Qualified Code(s): I10 - Essential (primary) hypertension Code(s): I10 - Essential (primary) hypertension Status: Acute Assessment and Plan: Stable. (6) LBBB (left bundle branch block): Code(s): I44.7 - Left bundle-branch block, unspecified Status: Acute (7) Elevated troponin: Code(s): R77.8 - Other specified abnormalities of plasma proteins Status: Inactive Assessment and Plan: Flat and slightly elevated at .055. Could be related to demand ischemia from intermittent rapid HR/CKD/anemia. (8) Dyspnea: Code(s): R06.00 - Dyspnea, unspecified Status: Acute Assessment and Plan: With persistent cough, probably due to pneumonia. 03/29/24 CXR is OK. CTA chest shows bilateral pneumonia in upper and lower lobes. No pulm embolism. (9) Pneumonia: Code(s): J18.9 - Pneumonia, unspecified organism Status: Acute Assessment and Plan: On antibiotics, managed by hospitalist. Subjective Date/time seen: 04/06/24 12:48 Interval history: Reports some sob, but no chest pain. Exam Const: General: cooperative, healthy appearing and comfortable Orientation/consciousness: oriented to person, oriented to place and oriented to time Resp: Auscultation: clear to auscultation bilaterally, no crackles, no rales, no rhonchi and no wheezes Cardio: Rate: regular rate Rhythm: regular rhythm Heart sounds: Clicking heart sound present (S2) and no murmurs Peripheral pulses: dorsalis pedis present Neuro: General: oriented to person, oriented to place and oriented to time Extrem: Right lower extremity: no edema Left lower extremity: no edema Objective Data Vital Signs Vital Signs: Vital Signs - 24 hr 04/05/24 14:00 04/05/24 14:34 04/05/24 14:51 Temperature 96.5 F L Pulse Rate 50 L 61 62 Respiratory Rate 14 16 16 Blood Pressure 145/53 H Pulse Oximetry 95 Oxygen Delivery Oxygen Flow Rate 04/05/24 16:00 04/05/24 20:00 04/05/24 20:00 Temperature Pulse Rate 95 63 Respiratory Rate Blood Pressure Pulse Oximetry 94 Oxygen Delivery Nasal Cannula Oxygen Flow Rate 1 04/05/24 20:39 04/05/24 20:45 04/05/24 20:46 Temperature 97.9 F Pulse Rate 66 74 Respiratory Rate 18 16 Blood Pressure 140/99 H Pulse Oximetry 92 94 Oxygen Delivery Nasal Cannula Oxygen Flow Rate 1 04/05/24 21:02 04/06/24 00:00 04/06/24 02:14 Temperature Pulse Rate 79 59 L 70 Respiratory Rate 16 16 Blood Pressure Pulse Oximetry Oxygen Delivery Oxygen Flow Rate 04/06/24 02:22 04/06/24 04:00 04/06/24 05:28 Temperature 97.2 F L Pulse Rate 70 64 69 Respiratory Rate 16 18 Blood Pressure 147/56 H Pulse Oximetry 97 Oxygen Delivery Oxygen Flow Rate 04/06/24 07:14 04/06/24 07:15 04/06/24 07:26 Temperature Pulse Rate 76 Respiratory Rate 18 20 Blood Pressure Pulse Oximetry 90 Oxygen Delivery Nasal Cannula Oxygen Flow Rate 1 04/06/24 08:00 04/06/24 09:20 Temperature Pulse Rate 74 67 Respiratory Rate Blood Pressure Pulse Oximetry Oxygen Delivery Oxygen Flow Rate Intake/Output Intake/Output: Intake & Output 04/03/24 04/04/24 04/05/24 04/06/24 23:59 23:59 23:59 23:59 Intake Total 970 320 220 Output Total 2150 1400 2050 1000 Balance -1180 -1080 -1830 -1000 Meds/Results Medications: Active Medications Generic Name Dose Route Start Last Admin Trade Name Freq PRN Reason Stop Dose Admin Acetaminophen 1,000 mg 03/10/24 10:04 04/05/24 21:44 Acetaminophen 500 Mg Tablet PO 1,000 mg Q6H PRN Administration Mild Pain (1-3) or Fever Hydrocodone Bitart/Acetaminophen 1 tab 03/08/24 17:21 04/04/24 06:08 Hydrocodone/Acetaminophen (*Crx) 5-325 Mg Tablet PO 04/15/24 23:59 1 tab Q6H PRN Administration Pain Rated 4-6 Acetylcysteine 200 mg 03/22/24 20:00 04/06/24 07:13 Acetylcysteine 20% Inhal Soln 800 Mg/4 Ml Vial INHALATION 200 mg Q12HRT IAN Administration Alprazolam 0.25 mg 03/08/24 17:21 04/03/24 20:47 Alprazolam (*Crx) 0.25 Mg Tablet PO 04/15/24 23:59 0.25 mg HS PRN Administration Anxiety Benzocaine 1 lozenge 03/10/24 18:17 04/01/24 18:35 Benzocaine/Menthol (*Bkc) 18 Ea Lozenge PO 1 lozenge PRN PRN Administration Sore Throat Cyanocobalamin 1,000 mcg 03/09/24 09:00 04/06/24 09:20 Cyanocobalamin 1,000 Mcg Tablet PO 1,000 mcg DAILY IAN Administration Cyclobenzaprine HCl 5 mg 03/19/24 14:03 04/03/24 16:27 Cyclobenzaprine Hcl 5 Mg Tablet PO 5 mg Q8H PRN Administration Muscle Spasm Diclofenac Sodium 1 applic 03/10/24 10:04 03/27/24 00:50 Diclofenac Sodium 1% 100 Gm Gel (*Bkc) TOPICAL 1 applic QID PRN Administration joint pain Furosemide 20 mg 03/16/24 09:00 04/01/24 09:18 Furosemide 20 Mg Tablet PO 20 mg DAILY IAN Administration Furosemide 20 mg 04/03/24 17:00 04/06/24 09:21 Furosemide Inj 40 Mg/4 Ml Vial IV PUSH 20 mg BID IAN Administration Gabapentin 300 mg 03/08/24 21:00 04/06/24 09:21 Gabapentin 300 Mg Capsule PO 300 mg Q12HR IAN Administration Guaifenesin/Dextromethorphan 2 tab 04/05/24 21:00 04/06/24 09:20 Guaifenesin 600 Mg/Dextromethorphan 30 Mg Sr Tab 12 Hr PO 2 tab Q12HR IAN Administration Levalbuterol HCl 1.25 mg 03/22/24 14:00 04/06/24 07:13 Levalbuterol Neb 1.25 Mg/3 Ml INHALATION 1.25 mg Q6HRT IAN Administration Melatonin 5 mg 03/15/24 21:00 04/05/24 21:44 Melatonin 5 Mg Tablet PO 5 mg HS IAN Administration Methimazole 5 mg 03/09/24 09:00 04/06/24 09:22 Methimazole 5 Mg Tab PO 5 mg DAILY IAN Administration Cinacalcet 15 Mg 0 each 03/10/24 09:00 04/06/24 09:22 Tablet PO 04/09/24 08:59 15 each DAILY IAN Administration Pantoprazole Sodium 40 mg 03/09/24 09:00 04/06/24 09:22 Pantoprazole 40 Mg Tablet PO 40 mg QAM IAN Administration Polyethylene Glycol 17 gm 03/22/24 09:00 04/06/24 09:22 Polyethylene Glycol 3350 17 Gm Powd.Pack PO Not Given QAM IAN Potassium Chloride 10 meq 03/08/24 21:00 04/05/24 21:44 Potassium Chloride 10 Meq Er Tablet PO 10 meq HS IAN Administration Simvastatin 10 mg 03/08/24 21:00 04/05/24 21:44 Simvastatin 10 Mg Tablet PO 10 mg HS IAN Administration Sotalol HCl 40 mg 03/27/24 14:00 04/06/24 09:20 Sotalol Hcl 40 Mg Tablet PO 40 mg DAILY IAN Administration Venlafaxine HCl 150 mg 03/09/24 09:00 04/06/24 09:20 Venlafaxine Hcl Xr 75 Mg Cap.Er.24h PO 150 mg DAILY IAN Administration Vitamin D 1,000 units 03/09/24 09:00 04/06/24 09:21 Cholecalciferol 1,000 Units Tablet PO 1,000 units DAILY IAN Administration Warfarin Sodium 9 mg 03/11/24 17:00 03/13/24 17:40 Warfarin (*Pbkc) 3 Mg Tablet PO 9 mg DAILY@1700 IAN Administration Warfarin Sodium 6 mg 03/22/24 17:00 04/05/24 17:17 Warfarin (*Pbkc) 3 Mg Tablet PO 6 mg DAILY@1700 IAN Administration Radiology Results: ITS Impressions Chest/Abdomen/Pelvis CT 03/21/24 12:36 IMPRESSION: CHEST: 1. No acute cardiopulmonary pathology. 2. Compression fracture of T6. MRI evaluation advised. ABDOMEN/PELVIS: 1. Hematoma in the left anterior abdominal wall. 2. Constipation. Lexiscan Stress Test 03/22/24 12:28 IMPRESSION: 1. No definite ischemia or infarct. 2. Normal left ventricular ejection fraction measuring 56%. Lumbar Spine X-Ray 03/23/24 13:40 IMPRESSION: 1. Mild lumbar spondylosis. 2. Lumbar dextroscoliosis. Cervical Spine CT 03/24/24 15:01 IMPRESSION: 1. Moderate cervical spondylosis, stable from 11/13/2020. 2. Cervicothoracic levoscoliosis. Chest CTA 03/29/24 12:58 IMPRESSION: 1. Bilateral pneumonia in the upper lobes and lower lobes. 2. No pulmonary embolus. 3. Liver surface nodularity suspicious for cirrhosis. Modified Barium Swallow 03/31/24 15:19 IMPRESSION: Transient laryngeal penetration without aspiration with swallows of large amounts of thin liquids. Please correlate with speech pathologist findings and specific feeding recommendations. Chest X-Ray 04/01/24 20:45 IMPRESSION: Moderate pulmonary vascular congestion with a large left-sided pleural effusion Labs Labs: Laboratory Results - last 24 hr 04/03/24 04/05/24 04/05/24 06:29 16:53 20:04 WBC RBC Hgb Hct MCV MCH MCHC RDW Plt Count MPV PT INR Sodium Potassium Chloride Carbon Dioxide Anion Gap BUN Creatinine Estim Creat Clear Calc Estimated GFR Glucose POC Capillary Glucose 79 100 Total Insulin 5.0 Calcium Total Bilirubin AST ALT Alkaline Phosphatase Total Protein Albumin 04/06/24 04/06/24 04/06/24 05:46 08:33 12:03 WBC 4.6 RBC 3.01 L Hgb 9.7 L Hct 31.5 L MCV 104.7 H MCH 32.2 MCHC 30.8 L RDW 14.2 Plt Count 322 MPV 12.0 H PT 31.9 H INR 3.1 Sodium 135 L Potassium 3.9 Chloride 95 L Carbon Dioxide 36 H Anion Gap 4 BUN 24 H Creatinine 1.28 H Estim Creat Clear Calc 33 Estimated GFR 40 L Glucose 61 L POC Capillary Glucose 84 81 Total Insulin Calcium 10.3 H Total Bilirubin 0.4 AST 35 ALT 15 Alkaline Phosphatase 94 Total Protein 7.0 Albumin 3.1 L
--- NOTE | 2024-04-06 15:14 | P.PNIM_ITS ---
Progress Note: A&P Assessment and Plan (1) Mechanical heart valve present: Code(s): Z95.2 - Presence of prosthetic heart valve Status: Acute Assessment and Plan: 04/06 INR 3.1 Hold warfarin Evidence of hematoma in the left anterior abdominal wall 3 x 2.5 cm monitor (2) Palpitations: Code(s): R00.2 - Palpitations Status: Acute Assessment and Plan: - Likely due -to PAF with RVR. -continue sotalol 40 mg p.o. q.d. - Better after hydration and resuming home meds. resolved (3) Acute kidney injury: Code(s): N17.9 - Acute kidney failure, unspecified Status: Acute Assessment and Plan: Ddx pre-renal vs poor PO intake vs meds vs other. s/p 500 bolus with tachycardia --Resumed lasix --Creatinine stable resolved (4) HTN (hypertension): Qualifiers: Hypertension type: primary hypertension Qualified Code(s): I10 - Essential (primary) hypertension Code(s): I10 - Essential (primary) hypertension Status: Acute Assessment and Plan: - Appears well controlled. -On Sotalol - Follow VS (5) Hyperlipidemia: Qualifiers: Hyperlipidemia type: mixed hyperlipidemia Qualified Code(s): E78.2 - Mixed hyperlipidemia Code(s): E78.5 - Hyperlipidemia, unspecified Status: Acute Assessment and Plan: * continue simvastatin (6) Shortness of breath: Code(s): R06.02 - Shortness of breath Status: Acute Assessment and Plan: Results (7) Anemia: Code(s): D64.9 - Anemia, unspecified Status: Acute Assessment and Plan: Blood count trending down since admission but may be dilutional 14.2>8.7 Iron panel showing iron deficiency anemia, Total Iron and Tsat low. B12 636. LDH 245 --iron sucrose 1000mg monitor H and H Gi plans before planned endoscopy when INR is below 2.5 and on heparin infusion (currently plans outpatient endoscopy and colonoscopy) (8) Heart failure, diastolic, acute on chronic: Code(s): I50.33 - Acute on chronic diastolic (congestive) heart failure Status: Acute Assessment and Plan: 08/24/23 Echo: TDS. EF 45%, biatrial enlargement, suspect (YADIRA 1.4 cm2), mod MR, mild-mod TR. s/p 500ml fluid bolus, now back on IV lasix NT-proBNP 10,000 continue Lasix 20mg IV bid TTE * Flipped back into A fib RVR overnight * Repeat EKG showing new LBBB--Cardiology was notified. * Mild troponin bump--likely demand ischemia * No significant finding in Lexiscan * monitor (9) Pneumonia: Code(s): J18.9 - Pneumonia, unspecified organism Status: Acute Assessment and Plan: CT chest done 03/30/[address] was obtained due to worsening leukocytosis and tachypnea HAP Patient completed initial Completed Cefepime and Doxycycline leukocytosis resolving MRSA negative (10) Atrial fibrillation with RVR: Code(s): I48.91 - Unspecified atrial fibrillation Status: Acute Assessment and Plan: on Sotalol and Warfarin Plan Hypoglycemia, resolved s/p Dextrose Cpeptide normal monitor closely Dysphagia MBS no aspiration noted Speech recommended soft and bite size level 6 as patient has no lower dentition DVT prophylaxis on Warfarin which is on hold for elevated INR Subjective Date/time seen: 04/06/24 15:14 Interval history: Patient reports of whole body pain and tired. Concussion about depression patient denies any symptoms of depression. Her INR is 3.1, holding warfarin. Pending SNF placement Review of Systems Review of Systems: All systems reviewed & are unremarkable except as noted in HPI and below Constitutional: Constitutional: Reports as per HPI and Reports no additional constitutional complaints Eyes: Eyes: Reports as per HPI and Reports no additional eye complaints ENT: Reports system reviewed and no additional complaints, except as documented and Reports as per HPI Cardiovascular: Cardiovascular: Reports as per HPI and Reports no additional cardiovascular complaints Respiratory: Respiratory: Reports as per HPI and Reports no additional respiratory complaints Gastrointestinal: Gastrointestinal: Reports as per HPI and Reports no additional gastrointestinal complaints Genitourinary: Genitourinary: Reports no additional female genitourinary complaints and Reports as per HPI Musculoskeletal: Musculoskeletal: Reports no additional musculoskeletal complaints and Reports as per HPI Integumentary/Breasts: Skin/Breast: Reports system reviewed and no additional complaints, except as docu and Reports as per HPI Neurologic: Reports system reviewed and no additional complaints, except as documented and Reports as per HPI Psychiatric: Psychiatric: Reports no additional psychiatric complaints and Reports as per HPI Exam Narrative: General: In no acute distress, well nourished Cardiac: Normal S1 and S2. NSR, No murmur, gallops or friction rubs, peripheral pulses intact. Respiratory: Lungs clear bilaterally , no adventitious lung sounds, currently on room air, raspy cough Gastrointestinal: soft, non-distended, non-tender, normoactive bowel sounds. : voiding without difficulty. Neuro: Alert and oriented x4 Objective Data Vital Signs Vital Signs: Vital Signs - 24 hr 04/05/24 16:00 04/05/24 20:00 04/05/24 20:00 Temperature Pulse Rate 95 63 Respiratory Rate Blood Pressure Pulse Oximetry 94 Oxygen Delivery Nasal Cannula Oxygen Flow Rate 1 04/05/24 20:39 04/05/24 20:45 04/05/24 20:46 Temperature 97.9 F Pulse Rate 66 74 Respiratory Rate 18 16 Blood Pressure 140/99 H Pulse Oximetry 92 94 Oxygen Delivery Nasal Cannula Oxygen Flow Rate 1 04/05/24 21:02 04/06/24 00:00 04/06/24 02:14 Temperature Pulse Rate 79 59 L 70 Respiratory Rate 16 16 Blood Pressure Pulse Oximetry Oxygen Delivery Oxygen Flow Rate 04/06/24 02:22 04/06/24 04:00 04/06/24 05:28 Temperature 97.2 F L Pulse Rate 70 64 69 Respiratory Rate 16 18 Blood Pressure 147/56 H Pulse Oximetry 97 Oxygen Delivery Oxygen Flow Rate 04/06/24 07:14 04/06/24 07:15 04/06/24 07:26 Temperature Pulse Rate 76 Respiratory Rate 18 20 Blood Pressure Pulse Oximetry 90 Oxygen Delivery Nasal Cannula Oxygen Flow Rate 1 04/06/24 08:00 04/06/24 09:20 04/06/24 12:00 Temperature Pulse Rate 74 67 57 L Respiratory Rate Blood Pressure Pulse Oximetry Oxygen Delivery Oxygen Flow Rate 04/06/24 13:08 04/06/24 13:14 04/06/24 14:00 Temperature 97.5 F L Pulse Rate 68 64 63 Respiratory Rate 16 14 18 Blood Pressure 140/75 Pulse Oximetry 97 Oxygen Delivery Oxygen Flow Rate Intake/Output Intake/Output: Intake & Output 04/03/24 04/04/24 04/05/24 04/06/24 23:59 23:59 23:59 23:59 Intake Total 970 320 220 0 Output Total 2150 1400 2050 1000 Balance -1180 -1185 -1081 -1000 Meds/Results Medications: Active Medications Generic Name Dose Route Start Last Admin Trade Name Freq PRN Reason Stop Dose Admin Acetaminophen 1,000 mg 03/10/24 10:04 04/05/24 21:44 Acetaminophen 500 Mg Tablet PO 1,000 mg Q6H PRN Administration Mild Pain (1-3) or Fever Hydrocodone Bitart/Acetaminophen 1 tab 03/08/24 17:21 04/04/24 06:08 Hydrocodone/Acetaminophen (*Crx) 5-325 Mg Tablet PO 04/15/24 23:59 1 tab Q6H PRN Administration Pain Rated 4-6 Acetylcysteine 200 mg 03/22/24 20:00 04/06/24 07:13 Acetylcysteine 20% Inhal Soln 800 Mg/4 Ml Vial INHALATION 200 mg Q12HRT IAN Administration Alprazolam 0.25 mg 03/08/24 17:21 04/03/24 20:47 Alprazolam (*Crx) 0.25 Mg Tablet PO 04/15/24 23:59 0.25 mg HS PRN Administration Anxiety Benzocaine 1 lozenge 03/10/24 18:17 04/01/24 18:35 Benzocaine/Menthol (*Bkc) 18 Ea Lozenge PO 1 lozenge PRN PRN Administration Sore Throat Cyanocobalamin 1,000 mcg 03/09/24 09:00 04/06/24 09:20 Cyanocobalamin 1,000 Mcg Tablet PO 1,000 mcg DAILY IAN Administration Cyclobenzaprine HCl 5 mg 03/19/24 14:03 04/03/24 16:27 Cyclobenzaprine Hcl 5 Mg Tablet PO 5 mg Q8H PRN Administration Muscle Spasm Diclofenac Sodium 1 applic 03/10/24 10:04 03/27/24 00:50 Diclofenac Sodium 1% 100 Gm Gel (*Bkc) TOPICAL 1 applic QID PRN Administration joint pain Furosemide 20 mg 03/16/24 09:00 04/01/24 09:18 Furosemide 20 Mg Tablet PO 20 mg DAILY IAN Administration Furosemide 20 mg 04/03/24 17:00 04/06/24 09:21 Furosemide Inj 40 Mg/4 Ml Vial IV PUSH 20 mg BID IAN Administration Gabapentin 300 mg 03/08/24 21:00 04/06/24 09:21 Gabapentin 300 Mg Capsule PO 300 mg Q12HR IAN Administration Guaifenesin/Dextromethorphan 2 tab 04/05/24 21:00 04/06/24 09:20 Guaifenesin 600 Mg/Dextromethorphan 30 Mg Sr Tab 12 Hr PO 2 tab Q12HR IAN Administration Levalbuterol HCl 1.25 mg 03/22/24 14:00 04/06/24 13:07 Levalbuterol Neb 1.25 Mg/3 Ml INHALATION 1.25 mg Q6HRT IAN Administration Melatonin 5 mg 03/15/24 21:00 04/05/24 21:44 Melatonin 5 Mg Tablet PO 5 mg HS IAN Administration Methimazole 5 mg 03/09/24 09:00 04/06/24 09:22 Methimazole 5 Mg Tab PO 5 mg DAILY IAN Administration Cinacalcet 15 Mg 0 each 03/10/24 09:00 04/06/24 09:22 Tablet PO 04/09/24 08:59 15 each DAILY IAN Administration Pantoprazole Sodium 40 mg 03/09/24 09:00 04/06/24 09:22 Pantoprazole 40 Mg Tablet PO 40 mg QAM IAN Administration Polyethylene Glycol 17 gm 03/22/24 09:00 04/06/24 09:22 Polyethylene Glycol 3350 17 Gm Powd.Pack PO Not Given QAM IAN Potassium Chloride 10 meq 03/08/24 21:00 04/05/24 21:44 Potassium Chloride 10 Meq Er Tablet PO 10 meq HS IAN Administration Simvastatin 10 mg 03/08/24 21:00 04/05/24 21:44 Simvastatin 10 Mg Tablet PO 10 mg HS IAN Administration Sotalol HCl 40 mg 03/27/24 14:00 04/06/24 09:20 Sotalol Hcl 40 Mg Tablet PO 40 mg DAILY IAN Administration Venlafaxine HCl 150 mg 03/09/24 09:00 04/06/24 09:20 Venlafaxine Hcl Xr 75 Mg Cap.Er.24h PO 150 mg DAILY IAN Administration Vitamin D 1,000 units 03/09/24 09:00 04/06/24 09:21 Cholecalciferol 1,000 Units Tablet PO 1,000 units DAILY IAN Administration Warfarin Sodium 9 mg 03/11/24 17:00 03/13/24 17:40 Warfarin (*Pbkc) 3 Mg Tablet PO 9 mg DAILY@1700 IAN Administration Warfarin Sodium 6 mg 03/22/24 17:00 04/05/24 17:17 Warfarin (*Pbkc) 3 Mg Tablet PO 6 mg DAILY@1700 IAN Administration Radiology Results: ITS Impressions Chest/Abdomen/Pelvis CT 03/21/24 12:36 IMPRESSION: CHEST: 1. No acute cardiopulmonary pathology. 2. Compression fracture of T6. MRI evaluation advised. ABDOMEN/PELVIS: 1. Hematoma in the left anterior abdominal wall. 2. Constipation. Lexiscan Stress Test 03/22/24 12:28 IMPRESSION: 1. No definite ischemia or infarct. 2. Normal left ventricular ejection fraction measuring 56%. Lumbar Spine X-Ray 03/23/24 13:40 IMPRESSION: 1. Mild lumbar spondylosis. 2. Lumbar dextroscoliosis. Cervical Spine CT 03/24/24 15:01 IMPRESSION: 1. Moderate cervical spondylosis, stable from 11/13/2020. 2. Cervicothoracic levoscoliosis. Chest CTA 03/29/24 12:58 IMPRESSION: 1. Bilateral pneumonia in the upper lobes and lower lobes. 2. No pulmonary embolus. 3. Liver surface nodularity suspicious for cirrhosis. Modified Barium Swallow 03/31/24 15:19 IMPRESSION: Transient laryngeal penetration without aspiration with swallows of large amounts of thin liquids. Please correlate with speech pathologist findings and specific feeding recommendations. Chest X-Ray 04/01/24 20:45 IMPRESSION: Moderate pulmonary vascular congestion with a large left-sided pleural effusion Labs Labs: Laboratory Results - last 24 hr 04/05/24 04/05/24 04/06/24 16:53 20:04 05:46 WBC 4.6 RBC 3.01 L Hgb 9.7 L Hct 31.5 L MCV 104.7 H MCH 32.2 MCHC 30.8 L RDW 14.2 Plt Count 322 MPV 12.0 H PT 31.9 H INR 3.1 Sodium 135 L Potassium 3.9 Chloride 95 L Carbon Dioxide 36 H Anion Gap 4 BUN 24 H Creatinine 1.28 H Estim Creat Clear Calc 33 Estimated GFR 40 L Glucose 61 L POC Capillary Glucose 79 100 Calcium 10.3 H Total Bilirubin 0.4 AST 35 ALT 15 Alkaline Phosphatase 94 Total Protein 7.0 Albumin 3.1 L 04/06/24 04/06/24 08:33 12:03 WBC RBC Hgb Hct MCV MCH MCHC RDW Plt Count MPV PT INR Sodium Potassium Chloride Carbon Dioxide Anion Gap BUN Creatinine Estim Creat Clear Calc Estimated GFR Glucose POC Capillary Glucose 84 81 Calcium Total Bilirubin AST ALT Alkaline Phosphatase Total Protein Albumin Quality VTE Prophylaxis VTE prophylaxis: pharmacologic ordered Hospitalist MIPS Advance Care Plan I have confirmed that the patient's Advanced Care Plan is present, code status is documented, or surrogate decision maker is listed in patient medical record.: Yes Medication Reconciliation I have utilized all available resources to obtain, update and review the patients current medications (includes all prescriptions, OTC, herbals, cannabis, and nutritional supplements).: Yes
[2024-04-06 16:53] LABS: Glucose Point of Care 123 mg/dl (65-105)
[2024-04-06] MEDS: HYDROcodone/acetaminophen (*CRX) 5-325 MG TABLET 1 TAB PO (18:40)
[2024-04-06] MEDS: SIMVASTATIN 10 MG TABLET PO (20:28)
[2024-04-06] MEDS: POTASSIUM CHLORIDE 10 MEQ ER TABLET PO (20:28)
[2024-04-06] MEDS: MELATONIN 5 MG TABLET PO (20:28)
[2024-04-06 21:50] LABS: Glucose Point of Care 95 mg/dl (65-105)
[2024-04-07] VITALS (13 sets, daily range): BP systolic 112–136; BP diastolic 52–61; PULSE 54–303; RESP 16–20; TEMP 36.4–37.1; O2SAT 94–100
[2024-04-07] MEDS: LEVALBUTEROL NEB 1.25 MG/3 ML INHALATION ×4 (01:56→21:00)
[2024-04-07 07:17] LABS: Hematocrit 32.5 % (37.0-47.0); Hemoglobin 9.9 g/dL (12.0-15.0); Mean Corpuscular HGB Conc 30.5 g/dl (32-36); Mean Corpuscular Hemoglobin 32.1 pg (26-34); Mean Corpuscular Volume 105.5 fl (80-100); Platelet Count Result 326 k/mm3 (150-375); Red Blood Count 3.08 M/mm3 (4.2-5.4); Red Cell Distribution Width 14.3 % (11.5-14.5); White Blood Count 5.9 K/mm3 (4.5-10.0)
[2024-04-07 07:26] LABS: INR 3.4; Prothrombin Time 35.3 Seconds (11.1-14.7)
[2024-04-07 07:31] LABS: Chloride 94 mmol/L (98-107)
[2024-04-07] MEDS: ACETYLCYSTEINE 20% INHAL SOLN 800 MG/4 ML VIAL 200 MG INHALATION ×2 (07:34→21:00)
[2024-04-07 07:50] LABS: Alanine Aminotransferase 12 U/L (6-35); Albumin Level 3.1 g/dL (3.5-5.1); Alkaline Phosphatase 92 U/L (38-126); Anion Gap 4 mmol/L (4-12); Aspartate Amino Transferase 30 U/L (14-36); Bilirubin,Total 0.4 mg/dL (0.2-1.3); Blood Urea Nitrogen 27 mg/dL (7-17); Calcium 10.1 mg/dL (8.4-10.2); Carbon Dioxide 37 mmol/L (22-30); Estimated CRCL calculation 31 ml/min; Estimated Glomerular Filt Rate 37; Glucose 54 mg/dL (65-110); Sodium 135 mmol/L (137-145)
[2024-04-07 08:27] LABS: Glucose Point of Care 92 mg/dl (65-105)
[2024-04-07] MEDS: VENLAFAXINE HCL XR 75 MG CAP.ER.24H 150 MG PO (09:10)
[2024-04-07] MEDS: GABAPENTIN 300 MG CAPSULE PO ×2 (09:10→21:50)
[2024-04-07] MEDS: PANTOPRAZOLE 40 MG TABLET PO (09:11)
[2024-04-07] MEDS: CYANOCOBALAMIN 1,000 MCG TABLET 1000 MCG PO (09:11)
[2024-04-07] MEDS: FUROSEMIDE INJ 40 MG/4 ML VIAL 20 MG IV PUSH ×2 (09:11→17:02)
[2024-04-07] MEDS: CHOLECALCIFEROL 1,000 UNITS TABLET 1000 UNITS PO (09:11)
[2024-04-07] MEDS: guaiFENesin 600 MG/DEXTROMETHORPHAN 30 MG SR TAB 12 HR 2 TAB PO ×2 (09:11→21:50)
[2024-04-07] MEDS: methiMAzole 5 MG TAB PO (09:11)
[2024-04-07] MEDS: SOTALOL HCL 40 MG TABLET PO (09:11)
[2024-04-07 11:31] LABS: Glucose Point of Care 102 mg/dl (65-105)
--- NOTE | 2024-04-07 14:23 | P.DS_ITS ---
DS: Admitting Diagnosis Discharge Date 04/08/2024 Admitting Diagnosis Chest pain DS: Discharge Diagnosis Discharge Diagnosis (1) Mechanical heart valve present: Code(s): Z95.2 - Presence of prosthetic heart valve Status: Acute Assessment and Plan: 04/08 INR 2.4 Resume warfarin Evidence of hematoma in the left anterior abdominal wall 3 x 2.5 cm(resolved) Follow up with Surgery as outpatient (2) Palpitations: Code(s): R00.2 - Palpitations Status: Acute Assessment and Plan: - Likely due -to PAF with RVR. -continue sotalol 40 mg p.o. q.d. - Better after hydration and resuming home meds. resolved (3) Acute kidney injury: Code(s): N17.9 - Acute kidney failure, unspecified Status: Acute Assessment and Plan: Ddx pre-renal vs poor PO intake vs meds vs other. s/p 500 bolus with tachycardia --Resumed lasix --Creatinine stable resolved (4) HTN (hypertension): Qualifiers: Hypertension type: primary hypertension Qualified Code(s): I10 - Essential (primary) hypertension Code(s): I10 - Essential (primary) hypertension Status: Acute Assessment and Plan: - Appears well controlled. -On Sotalol - Follow VS (5) Hyperlipidemia: Qualifiers: Hyperlipidemia type: mixed hyperlipidemia Qualified Code(s): E78.2 - Mixed hyperlipidemia Code(s): E78.5 - Hyperlipidemia, unspecified Status: Acute Assessment and Plan: * continue simvastatin (6) Shortness of breath: Code(s): R06.02 - Shortness of breath Status: Acute Assessment and Plan: Results (7) Anemia: Code(s): D64.9 - Anemia, unspecified Status: Acute Assessment and Plan: Blood count trending down since admission but may be dilutional 14.2>8.7 Iron panel showing iron deficiency anemia, Total Iron and Tsat low. B12 636. LDH 245 --iron sucrose 1000mg monitor H and H GI plans before planned endoscopy when INR is below 2.5 and on heparin infusion (currently plans outpatient endoscopy and colonoscopy) (8) Heart failure, diastolic, acute on chronic: Code(s): I50.33 - Acute on chronic diastolic (congestive) heart failure Status: Acute Assessment and Plan: 08/24/23 Echo: TDS. EF 45%, biatrial enlargement, suspect (YADIRA 1.4 cm2), mod MR, mild-mod TR. s/p 500ml fluid bolus, now back on IV lasix NT-proBNP 10,000 continue Lasix 20mg IV bid TTE * Flipped back into A fib RVR overnight * Repeat EKG showing new LBBB--Cardiology was notified. * Mild troponin bump--likely demand ischemia * No significant finding in Lexiscan * monitor (9) Pneumonia: Code(s): J18.9 - Pneumonia, unspecified organism Status: Acute Assessment and Plan: CT chest done 03/30/[address] was obtained due to worsening leukocytosis and tachypnea HAP Patient completed initial Completed Cefepime and Doxycycline leukocytosis resolving MRSA negative (10) Atrial fibrillation with RVR: Code(s): I48.91 - Unspecified atrial fibrillation Status: Acute Assessment and Plan: on Sotalol and Warfarin (11) COVID: Code(s): U07.1 - COVID-19 Status: Acute Plan Hypoglycemia, resolved s/p Dextrose Cpeptide normal monitor closely Dysphagia MBS no aspiration noted Speech recommended soft and bite size level 6 as patient has no lower dentition DVT prophylaxis on Warfarin which is on hold for elevated INR DS: Summary Hospital Course Hospital Course: Patient is a 78 y/o female with PMHx of left bundle-branch block, AFib, mechanical valve admitted due to palpitation. Patient had a prolonged h ospitalization due to multiple episodes of SVTs. The last 2 weeks before admission she was taking 6 mg thursday-, 5mg thursday, sat, sun. Generally has INR checks ever 2 weeks .Goal INR 2.5-3.5 with her mechanical valve. 03/21 : I assumed care . Patient INR is 3.1. Patient target INR is 2.5-3. Currently warfarin is on hold. Patient is also on Lovenox 80 mg b.i.d.. Since patient is already over therapeutic INR and in spite of receiving Lovenox makes her over anticoagulated. So today discontinued Lovenox. Given her warfarin 5 mg x 1 and possibly restart her home warfarin dosage 9mg from tomorrow. I performed CT chest/abdomen/pelvis which shows hematoma in the left anterior abdominal wall 3 x 2.5 cm. Discussed the goal of care with the nursing team. Patient wants some time to decide on her code status. 03/22: Surgery evaluated the patient under report overlying skin appears intact and there is no signs of infection. No indication for surgical intervention at this time. Patient has some cough and congestion. Patient is already on Mucinex, cornet. Ordered Xopenex around the clock for 2 days and Mucomyst b.i.d.. Discussed with the pharmacist and resume her home dose 6 mg not the 9 mg from today. Patient underwent a Lexiscan today 03/23: INR 3.3. Holding warfarin home dose is 6 mg. Hematoma of the abdominal wall has been evaluated by the surgery and currently does not need surgical intervention. Patient underwent Lexiscan yesterday which shows: 1. No definite ischemia or infarct. 2. Normal left ventricular ejection fraction measuring 56% 03/24: Today patient is complaining about neck pain. Ordered Cervical CT. INR is 3.1, holding warfarin. Lexiscan is negative.In regards to hematoma no indication for surgical intervention at this time. 03/25: Today morning rapid response was called due to increased heart rate in 170s/180s. During my evaluation patient heart rate was already down to 110s/120s. Patient was evaluated by the Cardiology at the time who who started her on sotalol 80 mg p.o. b.i.d.. Patient is already on metoprolol 25 mg p.o. t.i.d.. Patient INR is 2.5 and restarted her home warfarin does 6 mg. Possible discharge to SNF after stabilizing her heart rate. 03/26: Patient pain is improving. Chest is congested but no evidence of PNA. Ordered extra dose of Lasix 40 mg IV x 1. Patient started on Sotalol 80mg PO BID.INR 2.6, continue her home dose 6mg Warfarin. 03/27: INR 3, continue home dose Warfarin 6mg PO QD.Advised aggressive incentive spirometry and Cornet valve. Decreased her Sotalol dose to 40mg PO QD from Sotalol 80mg PO BID 03/28:Patient still congested. Given extra dose of Lasix 40mg IV x 1.Added Dextromethorphan. Other than the congestion she feels better. Hematoma is improving. INR is 2.9. Continue her home dose warfarin 6 mg PO QD. Patient had some dose adjustments of Sotalol and currently takes 40mg PO QD. Patient is cleared from Cardiology standpoint of view for discharge. Pending usp approval Again assumed care on 04/05 till 04/08. Patient is currently feeling better. Patient will be discharged today. Patient needs to follow-up with the PCP for INR follow-up. Patient needs to follow up with surgery for hematoma. Patient needs to follow-up with the GI for possible outpatient colonoscopy/endoscopy to evaluate anemia. Three discussed with her friends and encouraged her to be evaluated by the Psychiatry for depression. Patient was diagnosed with the COVID on 04/07. Discharge was on hold due to COVID. [facility]. Patient INR is 2.4. Resumed warfarin 6mg. INR Target 2.5-3 Status at Discharge Cognitive/behavioral status at discharge: Stable Time Spent with Patient Time attestation: Total time spent providing and/or coordinating discharge services: 45 minutes Exam Narrative: General: In no acute distress, well nourished Cardiac: Normal S1 and S2. NSR, No murmur, gallops or friction rubs, peripheral pulses intact. Respiratory: Lungs clear bilaterally , no adventitious lung sounds, currently on room air, raspy cough Gastrointestinal: soft, non-distended, non-tender, normoactive bowel sounds. : voiding without difficulty. Neuro: Alert and oriented x4 DS: Data Data Completed and Pending Labs on day of discharge: Labs from last 24 hours 04/07/24 04/07/24 04/07/24 11:26 08:14 06:19 WBC 5.9 RBC 3.08 L Hgb 9.9 L Hct 32.5 L MCV 105.5 H MCH 32.1 MCHC 30.5 L RDW 14.3 Plt Count 326 MPV 12.0 H PT 35.3 H INR 3.4 Sodium 135 L Potassium 4.0 Chloride 94 L Carbon Dioxide 37 H Anion Gap 4 BUN 27 H Creatinine 1.39 H Estim Creat Clear Calc 31 Estimated GFR 37 L Glucose 54 L* POC Capillary Glucose 102 92 Calcium 10.1 Total Bilirubin 0.4 AST 30 ALT 12 Alkaline Phosphatase 92 Total Protein 7.0 Albumin 3.1 L 04/06/24 04/06/24 21:41 16:50 WBC RBC Hgb Hct MCV MCH MCHC RDW Plt Count MPV PT INR Sodium Potassium Chloride Carbon Dioxide Anion Gap BUN Creatinine Estim Creat Clear Calc Estimated GFR Glucose POC Capillary Glucose 95 123 H Calcium Total Bilirubin AST ALT Alkaline Phosphatase Total Protein Albumin Imaging Radiologist's impression: ITS Impressions Chest X-Ray 03/07/24 16:32 IMPRESSION: 1. No acute cardiopulmonary disease. Chest X-Ray 03/08/24 19:52 IMPRESSION: New subsegmental left basilar opacities likely represent atelectasis. Infection not excluded. Small left and trace right pleural effusions. Chest X-Ray 03/10/24 15:01 IMPRESSION: Persisting cardiomegaly with possible left lower lobe infiltrate, as detailed above. Chest X-Ray 03/18/24 16:45 IMPRESSION: No acute cardiopulmonary process. Chest X-Ray 03/20/24 06:33 IMPRESSION: No acute cardiopulmonary process or significant change since 03/18/2024 Chest/Abdomen/Pelvis CT 03/21/24 12:36 IMPRESSION: CHEST: 1. No acute cardiopulmonary pathology. 2. Compression fracture of T6. MRI evaluation advised. ABDOMEN/PELVIS: 1. Hematoma in the left anterior abdominal wall. 2. Constipation. Lexiscan Stress Test 03/22/24 12:28 IMPRESSION: 1. No definite ischemia or infarct. 2. Normal left ventricular ejection fraction measuring 56%. Lumbar Spine X-Ray 03/23/24 13:40 IMPRESSION: 1. Mild lumbar spondylosis. 2. Lumbar dextroscoliosis. Cervical Spine CT 03/24/24 15:01 IMPRESSION: 1. Moderate cervical spondylosis, stable from 11/13/2020. 2. Cervicothoracic levoscoliosis. Chest X-Ray 03/26/24 06:15 IMPRESSION: 1. Cardiomegaly. Chest X-Ray 03/29/24 09:34 IMPRESSION: 1. Mild atelectasis at left lung base. 2. Cardiomegaly. Chest CTA 03/29/24 12:58 IMPRESSION: 1. Bilateral pneumonia in the upper lobes and lower lobes. 2. No pulmonary embolus. 3. Liver surface nodularity suspicious for cirrhosis. Modified Barium Swallow 03/31/24 15:19 IMPRESSION: Transient laryngeal penetration without aspiration with swallows of large amounts of thin liquids. Please correlate with speech pathologist findings and specific feeding recommendations. Chest X-Ray 04/01/24 20:45 IMPRESSION: Moderate pulmonary vascular congestion with a large left-sided pleural effusion Discharge Plan Discharge Attending physician on discharge: Raz Tuttle Consulting providers: Camelia Sheridan; Emil Farrell Discharging Clinician: Raz Tuttle Anticipated Discharge Date/Time: 04/07/24 13:55 Patient Disposition: SNF Activity: as tolerated Diet: heart healthy and other - see discharge instructions Discharge Instructions: Diet: Soft and bite sized, level 6 diet Patient takes Warfarin 6 mg PO QD Her INR target is 2.5-3 Please follow with primary care and make dose adjustment of Warfarin accordingly. Please follow up with surgery for hematoma evaluation. GI plans before planned endoscopy when INR is below 2.5 and on heparin infusion (currently plans outpatient endoscopy and colonoscopy) Patient follows with Dr. Farrell and please follow up with him within a week upon discharge Patient needs complete psychiatric evaluation to screen depression. Patient needs to follow-up with the PCP within week upon discharge Patient Instructions: Warfarin (By mouth), Vitamin K in Foods (GEN), Warfarin Toxicity (GEN) Patient Language: [place] Stand Alone Forms: General Discharge Information Follow-up/Referrals: Emil Farrell DO [Physician] - (Patient takes Warfarin 6 mg PO QD but holding due to her INR is 3.4. Her INR target is 2.5-3 Please restart Warfarin 6 mg accordingly) Darin,DO Sanjeev [Primary Care Provider] - (Patient takes Warfarin 6 mg PO QD but holding due to her INR is 3.4. Her INR target is 2.5-3 Please restart Warfarin 6 mg accordingly) Ryan Wilder MD [Physician] - (Need OP endoscopy/colonoscopy) Discharge Medications: New polyethylene glycol 3350 [Miralax] 17 gram Powder In Packet 17 g PO QAM Qty: 30 0RF levalbuterol HCl 1.25 mg/3 mL Solution For Nebulization 1.25 mg inhalation Q6HRT Qty: 30 0RF Mucinex DM 30-600 mg Tablet Extended Release 12 Hr 2 tab PO Q12HR Qty: 30 0RF melatonin 5 mg Tablet 5 mg PO HS Qty: 30 0RF Continued Ozempic 0.25 mg or 0.5 mg (2 mg/3 mL) pen injector 0.5 mg subcut WEEKLY simvastatin 10 mg PO HS cholecalciferol (vitamin D3) 1,000 units PO DAILY cyanocobalamin (vitamin B-12) 1,000 mcg capsule 1,000 mcg PO DAILY Qty: 30 0RF venlafaxine 150 mg Capsule,Extended Release 24hr 150 mg PO DAILY gabapentin 300 mg Capsule 300 mg PO Q12H potassium chloride 10 mEq tablet extended release 10 meq PO HS furosemide 20 mg tablet 20 mg PO DAILY hydrocodone-acetaminophen 5-325 mg tablet 1 - 2 tablet PO Q6H PRN (Reason: Pain) omeprazole 40 mg capsule,delayed release(DR/EC) 40 mg PO DAILY alprazolam 0.5 mg tablet 0.25 mg PO HS PRN (Reason: Anxiety) methimazole 5 mg tablet 5 mg PO DAILY cinacalcet 30 mg tablet 15 mg PO DAILY warfarin 6 mg tablet 6 mg PO DAILY Discontinued metoprolol succinate 25 mg tablet extended release 24 hr 12.5 mg PO DAILY Qty: 30 0RF albuterol sulfate 90 mcg/actuation Hfa Aerosol Inhaler 2 puff INHALATION QID PRN (Reason: Shortness Of Breath) Date of admission: 03/09/24 10:40 Primary Care Provider: Darin,Sanjeev Admitting Provider: Coral Grewal Attending physician on admission: Amarilis Piña Condition: Stable
[2024-04-07 15:52] LABS: SARS-CoV-2 RNA PCR Positive (Negative)
[2024-04-07] MEDS: CINACALCET PO (17:02)
[2024-04-07 17:05] LABS: Glucose Point of Care 82 mg/dl (65-105)
--- NOTE | 2024-04-07 17:57 | P.PNIM_ITS ---
Progress Note: A&P Assessment and Plan (1) Mechanical heart valve present: Code(s): Z95.2 - Presence of prosthetic heart valve Status: Acute Assessment and Plan: 04/07 INR 3.1 Hold warfarin Evidence of hematoma in the left anterior abdominal wall 3 x 2.5 cm Follow up with Surgery (2) Palpitations: Code(s): R00.2 - Palpitations Status: Acute Assessment and Plan: - Likely due -to PAF with RVR. -continue sotalol 40 mg p.o. q.d. - Better after hydration and resuming home meds. resolved (3) Acute kidney injury: Code(s): N17.9 - Acute kidney failure, unspecified Status: Acute Assessment and Plan: Ddx pre-renal vs poor PO intake vs meds vs other. s/p 500 bolus with tachycardia --Resumed lasix --Creatinine stable resolved (4) HTN (hypertension): Qualifiers: Hypertension type: primary hypertension Qualified Code(s): I10 - Essential (primary) hypertension Code(s): I10 - Essential (primary) hypertension Status: Acute Assessment and Plan: - Appears well controlled. -On Sotalol - Follow VS (5) Hyperlipidemia: Qualifiers: Hyperlipidemia type: mixed hyperlipidemia Qualified Code(s): E78.2 - Mixed hyperlipidemia Code(s): E78.5 - Hyperlipidemia, unspecified Status: Acute Assessment and Plan: * continue simvastatin (6) Shortness of breath: Code(s): R06.02 - Shortness of breath Status: Acute Assessment and Plan: Results (7) Anemia: Code(s): D64.9 - Anemia, unspecified Status: Acute Assessment and Plan: Blood count trending down since admission but may be dilutional 14.2>8.7 Iron panel showing iron deficiency anemia, Total Iron and Tsat low. B12 636. LDH 245 --iron sucrose 1000mg monitor H and H Gi plans before planned endoscopy when INR is below 2.5 and on heparin infusion (currently plans outpatient endoscopy and colonoscopy) (8) Heart failure, diastolic, acute on chronic: Code(s): I50.33 - Acute on chronic diastolic (congestive) heart failure Status: Acute Assessment and Plan: 08/24/23 Echo: TDS. EF 45%, biatrial enlargement, suspect (YADIRA 1.4 cm2), mod MR, mild-mod TR. s/p 500ml fluid bolus, now back on IV lasix NT-proBNP 10,000 continue Lasix 20mg IV bid TTE * Flipped back into A fib RVR overnight * Repeat EKG showing new LBBB--Cardiology was notified. * Mild troponin bump--likely demand ischemia * No significant finding in Lexiscan * monitor (9) Pneumonia: Code(s): J18.9 - Pneumonia, unspecified organism Status: Acute Assessment and Plan: CT chest done 03/30/[address] was obtained due to worsening leukocytosis and tachypnea HAP Patient completed initial Completed Cefepime and Doxycycline leukocytosis resolving MRSA negative (10) Atrial fibrillation with RVR: Code(s): I48.91 - Unspecified atrial fibrillation Status: Acute Assessment and Plan: on Sotalol and Warfarin (11) COVID: Code(s): U07.1 - COVID-19 Status: Acute Plan Hypoglycemia, resolved s/p Dextrose Cpeptide normal monitor closely Dysphagia MBS no aspiration noted Speech recommended soft and bite size level 6 as patient has no lower dentition DVT prophylaxis on Warfarin which is on hold for elevated INR Subjective Date/time seen: 04/07/24 17:57 Interval history: Holding discharge due to COVID.INR 3.4 hold warfarin Review of Systems Review of Systems: All systems reviewed & are unremarkable except as noted in HPI and below Constitutional: Constitutional: Reports as per HPI and Reports no additional constitutional complaints Eyes: Eyes: Reports as per HPI and Reports no additional eye complaints ENT: Reports system reviewed and no additional complaints, except as documented and Reports as per HPI Cardiovascular: Cardiovascular: Reports as per HPI and Reports no additional cardiovascular complaints Respiratory: Respiratory: Reports as per HPI and Reports no additional respiratory complaints Gastrointestinal: Gastrointestinal: Reports as per HPI and Reports no additional gastrointestinal complaints Genitourinary: Genitourinary: Reports no additional female genitourinary complaints and Reports as per HPI Musculoskeletal: Musculoskeletal: Reports no additional musculoskeletal complaints and Reports as per HPI Integumentary/Breasts: Skin/Breast: Reports system reviewed and no additional complaints, except as docu and Reports as per HPI Neurologic: Reports system reviewed and no additional complaints, except as documented and Reports as per HPI Psychiatric: Psychiatric: Reports no additional psychiatric complaints and Reports as per HPI Exam Narrative: General: In no acute distress, well nourished Cardiac: Normal S1 and S2. NSR, No murmur, gallops or friction rubs, peripheral pulses intact. Respiratory: Lungs clear bilaterally , no adventitious lung sounds, currently on room air, raspy cough Gastrointestinal: soft, non-distended, non-tender, normoactive bowel sounds. : voiding without difficulty. Neuro: Alert and oriented x4 Objective Data Vital Signs Vital Signs: Vital Signs - 24 hr 04/06/24 19:45 04/06/24 19:52 04/06/24 20:00 Temperature Pulse Rate 74 74 Respiratory Rate 18 Blood Pressure Pulse Oximetry 92 92 Oxygen Delivery Nasal Cannula Nasal Cannula Oxygen Flow Rate 1 1 04/06/24 20:00 04/06/24 20:01 04/06/24 21:37 Temperature 98.9 F Pulse Rate 66 71 74 Respiratory Rate 18 16 Blood Pressure 133/92 H Pulse Oximetry 90 Oxygen Delivery Oxygen Flow Rate 04/07/24 00:00 04/07/24 01:56 04/07/24 02:03 Temperature Pulse Rate 64 67 69 Respiratory Rate 18 18 Blood Pressure Pulse Oximetry Oxygen Delivery Oxygen Flow Rate 04/07/24 04:00 04/07/24 06:07 04/07/24 07:38 Temperature 97.6 F Pulse Rate 64 62 61 Respiratory Rate 16 20 Blood Pressure 136/52 L Pulse Oximetry 100 94 Oxygen Delivery Nasal Cannula Oxygen Flow Rate 2 04/07/24 07:38 04/07/24 08:00 04/07/24 12:00 Temperature Pulse Rate 61 303 H 54 L Respiratory Rate 20 Blood Pressure Pulse Oximetry Oxygen Delivery Oxygen Flow Rate 04/07/24 14:49 04/07/24 15:00 04/07/24 15:21 Temperature 97.9 F Pulse Rate 60 68 64 Respiratory Rate 20 20 16 Blood Pressure 112/56 L Pulse Oximetry 98 Oxygen Delivery Oxygen Flow Rate Intake/Output Intake/Output: Intake & Output 04/04/24 04/05/24 04/06/24 04/07/24 23:59 23:59 23:59 23:59 Intake Total 320 819 869 4383 Output Total 1400 2050 1800 500 Balance -0151 -5682 -9192 510 Meds/Results Medications: Active Medications Generic Name Dose Route Start Last Admin Trade Name Freq PRN Reason Stop Dose Admin Acetaminophen 1,000 mg 03/10/24 10:04 04/05/24 21:44 Acetaminophen 500 Mg Tablet PO 1,000 mg Q6H PRN Administration Mild Pain (1-3) or Fever Hydrocodone Bitart/Acetaminophen 1 tab 03/08/24 17:21 04/06/24 18:40 Hydrocodone/Acetaminophen (*Crx) 5-325 Mg Tablet PO 04/15/24 23:59 1 tab Q6H PRN Administration Pain Rated 4-6 Acetylcysteine 200 mg 03/22/24 20:00 04/07/24 07:34 Acetylcysteine 20% Inhal Soln 800 Mg/4 Ml Vial INHALATION 200 mg Q12HRT IAN Administration Alprazolam 0.25 mg 03/08/24 17:21 04/03/24 20:47 Alprazolam (*Crx) 0.25 Mg Tablet PO 04/15/24 23:59 0.25 mg HS PRN Administration Anxiety Benzocaine 1 lozenge 03/10/24 18:17 04/01/24 18:35 Benzocaine/Menthol (*Bkc) 18 Ea Lozenge PO 1 lozenge PRN PRN Administration Sore Throat Cyanocobalamin 1,000 mcg 03/09/24 09:00 04/07/24 09:11 Cyanocobalamin 1,000 Mcg Tablet PO 1,000 mcg DAILY IAN Administration Cyclobenzaprine HCl 5 mg 03/19/24 14:03 04/03/24 16:27 Cyclobenzaprine Hcl 5 Mg Tablet PO 5 mg Q8H PRN Administration Muscle Spasm Diclofenac Sodium 1 applic 03/10/24 10:04 03/27/24 00:50 Diclofenac Sodium 1% 100 Gm Gel (*Bkc) TOPICAL 1 applic QID PRN Administration joint pain Furosemide 20 mg 03/16/24 09:00 04/01/24 09:18 Furosemide 20 Mg Tablet PO 20 mg DAILY IAN Administration Furosemide 20 mg 04/03/24 17:00 04/07/24 17:02 Furosemide Inj 40 Mg/4 Ml Vial IV PUSH 20 mg BID IAN Administration Gabapentin 300 mg 03/08/24 21:00 04/07/24 09:10 Gabapentin 300 Mg Capsule PO 300 mg Q12HR IAN Administration Guaifenesin/Dextromethorphan 2 tab 04/05/24 21:00 04/07/24 09:11 Guaifenesin 600 Mg/Dextromethorphan 30 Mg Sr Tab 12 Hr PO 2 tab Q12HR IAN Administration Levalbuterol HCl 1.25 mg 03/22/24 14:00 04/07/24 14:49 Levalbuterol Neb 1.25 Mg/3 Ml INHALATION 1.25 mg Q6HRT IAN Administration Melatonin 5 mg 03/15/24 21:00 04/06/24 20:28 Melatonin 5 Mg Tablet PO 5 mg HS IAN Administration Methimazole 5 mg 03/09/24 09:00 04/07/24 09:11 Methimazole 5 Mg Tab PO 5 mg DAILY IAN Administration Miscellaneous Information 1 each 04/07/24 00:01 Gabapentin, Kcl, Simvastatin Need To Be Renewed Or It Will Automatically Discontinue. XX 05/07/24 00:00 CLARIFY IAN Miscellaneous Information 0 each 04/08/24 00:01 Order Clarification XX 05/08/24 00:00 CLARIFY IAN Cinacalcet 15 Mg 0 each 03/10/24 09:00 04/07/24 17:02 Tablet PO 04/09/24 08:59 1 each DAILY IAN Administration Pantoprazole Sodium 40 mg 03/09/24 09:00 04/07/24 09:11 Pantoprazole 40 Mg Tablet PO 40 mg QAM IAN Administration Polyethylene Glycol 17 gm 03/22/24 09:00 04/07/24 09:11 Polyethylene Glycol 3350 17 Gm Powd.Pack PO Not Given QAM IAN Potassium Chloride 10 meq 03/08/24 21:00 04/06/24 20:28 Potassium Chloride 10 Meq Er Tablet PO 10 meq HS IAN Administration Simvastatin 10 mg 03/08/24 21:00 04/06/24 20:28 Simvastatin 10 Mg Tablet PO 10 mg HS IAN Administration Sotalol HCl 40 mg 03/27/24 14:00 04/07/24 09:11 Sotalol Hcl 40 Mg Tablet PO 40 mg DAILY IAN Administration Venlafaxine HCl 150 mg 03/09/24 09:00 04/07/24 09:10 Venlafaxine Hcl Xr 75 Mg Cap.Er.24h PO 150 mg DAILY IAN Administration Vitamin D 1,000 units 03/09/24 09:00 04/07/24 09:11 Cholecalciferol 1,000 Units Tablet PO 1,000 units DAILY IAN Administration Warfarin Sodium 9 mg 03/11/24 17:00 03/13/24 17:40 Warfarin (*Pbkc) 3 Mg Tablet PO 9 mg DAILY@1700 [facility] Administration Warfarin Sodium 6 mg 03/22/24 17:00 04/05/24 17:17 Warfarin (*Pbkc) 3 Mg Tablet PO 6 mg DAILY@1700 IAN Administration Radiology Results: ITS Impressions Chest/Abdomen/Pelvis CT 03/21/24 12:36 IMPRESSION: CHEST: 1. No acute cardiopulmonary pathology. 2. Compression fracture of T6. MRI evaluation advised. ABDOMEN/PELVIS: 1. Hematoma in the left anterior abdominal wall. 2. Constipation. Lexiscan Stress Test 03/22/24 12:28 IMPRESSION: 1. No definite ischemia or infarct. 2. Normal left ventricular ejection fraction measuring 56%. Lumbar Spine X-Ray 03/23/24 13:40 IMPRESSION: 1. Mild lumbar spondylosis. 2. Lumbar dextroscoliosis. Cervical Spine CT 03/24/24 15:01 IMPRESSION: 1. Moderate cervical spondylosis, stable from 11/13/2020. 2. Cervicothoracic levoscoliosis. Chest CTA 03/29/24 12:58 IMPRESSION: 1. Bilateral pneumonia in the upper lobes and lower lobes. 2. No pulmonary embolus. 3. Liver surface nodularity suspicious for cirrhosis. Modified Barium Swallow 03/31/24 15:19 IMPRESSION: Transient laryngeal penetration without aspiration with swallows of large amounts of thin liquids. Please correlate with speech pathologist findings and specific feeding recommendations. Chest X-Ray 04/01/24 20:45 IMPRESSION: Moderate pulmonary vascular congestion with a large left-sided pleural effusion Labs Labs: Laboratory Results - last 24 hr 04/06/24 04/07/24 04/07/24 21:41 06:19 08:14 WBC 5.9 RBC 3.08 L Hgb 9.9 L Hct 32.5 L MCV 105.5 H MCH 32.1 MCHC 30.5 L RDW 14.3 Plt Count 326 MPV 12.0 H PT 35.3 H INR 3.4 Sodium 135 L Potassium 4.0 Chloride 94 L Carbon Dioxide 37 H Anion Gap 4 BUN 27 H Creatinine 1.39 H Estim Creat Clear Calc 31 Estimated GFR 37 L Glucose 54 L* POC Capillary Glucose 95 92 Calcium 10.1 Total Bilirubin 0.4 AST 30 ALT 12 Alkaline Phosphatase 92 Total Protein 7.0 Albumin 3.1 L SARS-CoV-2 RNA (RT-PCR) 04/07/24 04/07/24 04/07/24 11:26 15:07 17:03 WBC RBC Hgb Hct MCV MCH MCHC RDW Plt Count MPV PT INR Sodium Potassium Chloride Carbon Dioxide Anion Gap BUN Creatinine Estim Creat Clear Calc Estimated GFR Glucose POC Capillary Glucose 102 82 Calcium Total Bilirubin AST ALT Alkaline Phosphatase Total Protein Albumin SARS-CoV-2 RNA (RT-PCR) Positive A Quality VTE Prophylaxis VTE prophylaxis: pharmacologic ordered Hospitalist MIPS Advance Care Plan I have confirmed that the patient's Advanced Care Plan is present, code status is documented, or surrogate decision maker is listed in patient medical record.: Yes Medication Reconciliation I have utilized all available resources to obtain, update and review the patients current medications (includes all prescriptions, OTC, herbals, cannabis, and nutritional supplements).: Yes
[2024-04-07] MEDS: POTASSIUM CHLORIDE 10 MEQ ER TABLET PO (21:50)
[2024-04-07] MEDS: SIMVASTATIN 10 MG TABLET PO (21:50)
[2024-04-07] MEDS: MELATONIN 5 MG TABLET PO (21:50)
[2024-04-07] MEDS: HYDROcodone/acetaminophen (*CRX) 5-325 MG TABLET 1 TAB PO (21:50)
[2024-04-07 22:27] LABS: Glucose Point of Care 89 mg/dl (65-105)
[2024-04-08] VITALS (9 sets, daily range): BP systolic 108; BP diastolic 65; PULSE 68–83; RESP 18–20; TEMP 36.6–36.8; O2SAT 94–95
[2024-04-08] MEDS: LEVALBUTEROL NEB 1.25 MG/3 ML INHALATION ×2 (02:29→09:17)
[2024-04-08 06:48] LABS: Hematocrit 31.7 % (37.0-47.0); Mean Corpuscular HGB Conc 31.5 g/dl (32-36); Mean Corpuscular Hemoglobin 32.7 pg (26-34); Mean Corpuscular Volume 103.6 fl (80-100); Mean Platelet Volume 12.1 fl (7.4-10.4); Platelet Count Result 280 k/mm3 (150-375); Red Blood Count 3.06 M/mm3 (4.2-5.4); White Blood Count 5.3 K/mm3 (4.5-10.0)
[2024-04-08 07:09] LABS: Alanine Aminotransferase 12 U/L (6-35); Albumin Level 2.9 g/dL (3.5-5.1); Alkaline Phosphatase 86 U/L (38-126); Anion Gap 8 mmol/L (4-12); Aspartate Amino Transferase 33 U/L (14-36); Bilirubin,Total 0.4 mg/dL (0.2-1.3); Blood Urea Nitrogen 29 mg/dL (7-17); Calcium 9.8 mg/dL (8.4-10.2); Carbon Dioxide 31 mmol/L (22-30); Chloride 94 mmol/L (98-107); Estimated CRCL calculation 32 ml/min; Estimated Glomerular Filt Rate 38; Glucose 60 mg/dL (65-110); Potassium 3.7 mmol/L (3.4-5.0); Sodium 133 mmol/L (137-145)
[2024-04-08 07:51] LABS: Glucose Point of Care 60 mg/dl (65-105)
[2024-04-08] MEDS: CHOLECALCIFEROL 1,000 UNITS TABLET 1000 UNITS PO (08:29)
[2024-04-08] MEDS: CYANOCOBALAMIN 1,000 MCG TABLET 1000 MCG PO (08:29)
[2024-04-08] MEDS: SOTALOL HCL 40 MG TABLET PO (08:29)
[2024-04-08] MEDS: FUROSEMIDE INJ 40 MG/4 ML VIAL 20 MG IV PUSH (08:29)
[2024-04-08] MEDS: guaiFENesin 600 MG/DEXTROMETHORPHAN 30 MG SR TAB 12 HR 2 TAB PO (08:29)
[2024-04-08] MEDS: PANTOPRAZOLE 40 MG TABLET PO (08:29)
[2024-04-08] MEDS: methiMAzole 5 MG TAB PO (08:29)
[2024-04-08] MEDS: VENLAFAXINE HCL XR 75 MG CAP.ER.24H 150 MG PO (08:29)
[2024-04-08] MEDS: GABAPENTIN 300 MG CAPSULE PO (08:29)
[2024-04-08] MEDS: polyethylene glycoL 3350 17 GM POWD.PACK PO (08:30)
[2024-04-08 08:32] LABS: INR 2.4; Prothrombin Time 26.8 Seconds (11.1-14.7)
[2024-04-08] MEDS: HYDROcodone/acetaminophen (*CRX) 5-325 MG TABLET 1 TAB PO (08:33)
[2024-04-08] MEDS: ACETYLCYSTEINE 20% INHAL SOLN 800 MG/4 ML VIAL 200 MG INHALATION (09:54)
[2024-04-08 10:15] LABS: Glucose Point of Care 83 mg/dl (65-105)
[2024-04-08] MEDS: CINACALCET PO (11:10)
[2024-04-08 11:31] LABS: Glucose Point of Care 114 mg/dl (65-105)
== END 2024-04-08 16:25 | disposition swing bed (61) | DRG 308 ==
LOC: ANHED 23:32 → ANH3MEDSUR 03-08 00:51 → ANHIMU 04-11 10:54
PROVIDERS: Internal Medicine; Nurse Practitioner; Nurse Practitioner Acute Care; Nurse Practitioner Adult Health; Physician Assistant; Admitting Provider Internal Medicine; Emergency Provider Emergency Medicine; PCP Student in an Organized Health Care Education/Training Program; Visit Provider General Practice
DX: I48.0 Paroxysmal atrial fibrillation (principal); I50.33 Acute on chronic diastolic (congestive) heart failure; J18.9 Pneumonia, unspecified organism; I13.0 Hypertensive heart and chronic kidney disease with heart failure and stage 1 through stage 4 chronic kidney disease, or unspecified chronic kidney disease; N17.9 Acute kidney failure, unspecified; I24.89 Other forms of acute ischemic heart disease; N18.32 Chronic kidney disease, stage 3b; E11.22 Type 2 diabetes mellitus with diabetic chronic kidney disease; R79.1 Abnormal coagulation profile; M79.81 Nontraumatic hematoma of soft tissue; T45.515A Adverse effect of anticoagulants, initial encounter; E86.0 Dehydration; E78.5 Hyperlipidemia, unspecified; G47.33 Obstructive sleep apnea (adult) (pediatric); D64.9 Anemia, unspecified; E53.8 Deficiency of other specified B group vitamins; I35.1 Nonrheumatic aortic (valve) insufficiency; I34.0 Nonrheumatic mitral (valve) insufficiency; I36.1 Nonrheumatic tricuspid (valve) insufficiency; E11.649 Type 2 diabetes mellitus with hypoglycemia without coma; I44.7 Left bundle-branch block, unspecified; F32.A Depression, unspecified; Z79.01 Long term (current) use of anticoagulants; Z95.2 Presence of prosthetic heart valve; Z79.85 Long-term (current) use of injectable non-insulin antidiabetic drugs
CPT/HCPCS: 36415; 71045; 71046; 71250; 71275; 72100; 72125; 74176; 78452; 80048; 80053; 80069; 80076; 81003; 82274; 82565; 82607; 82728; 82948; 83525; 83540; 83550; 83605; 83615; 83690; 83735; 83880; 84100; 84443; 84484; 84681; 85025; 85027; 85046; 85049; 85055; 85610; 85730; 87040; 87070; 87081; 87205; 87635; 87637; 87641; 87651; 87899; 92610; 92611; 93005; 93017; 94002; 94003; 94640; 94667; 94668; 96361; 96374; 97110; 97116; 97161; 97165; 97168; 97530; 97535; 99285; A9270; A9502; C8929; G0378; J0280; J0295; J0692; J1171; J1644; J1650; J1756; J1940; J2270; J2785; J3475; J7030; J7040; J7050; J7120; Q9957; Q9967

== ENCOUNTER 2024-04-08 18:15 | Inpatient (IN) | payer OTHER, SELFPAY ==
--- OUTSIDE RECORDS SUMMARY | 2024-04-08 18:20 | XMS_ITS | Clinical Summary ---
Author Organization [facility] Address [address] [place] [address] Phone Care Team Providers Care Satellite Dish Installer Name Role Phone Sanjeev Webster DO Primary Care Provider + Blade Phillips MD Unavailable [phone] Allergies Active Allergy Reactions Criticality Noted Date [...] topic Insurance MEDICARE C [employer] Care Teams Satellite Dish Installer Relationship Specialty Start Date End Date Sanjeev Webster DO [address] [place] [address] PCP - General Family Medicine 09/14/23 Blade Phillips MD [address] [place] [phone] Oncology 09/14/23
--- OUTSIDE RECORDS SUMMARY | 2024-04-08 18:20 | XMS_ITS | Encounter Summary ---
Author Organization [facility] Address [address] [place] [address] Care Team Providers Care Dry Plasterer Name Role Phone Hong Holder MD Primary Care Provider [phone] Hong Holder MD Primary Care Provider [phone] Juan Pablo Dominguez MD Primary Care Provider Miscellaneous, Not In File Primary Care Provider Unavailable Sanjeev Webster DO Primary Care Provide r Encounter Details Date Type Department Care Team (Late st Contact Info) Description 05/28/2016 Orders Only [facility] ProviderCasi MD [address] [place] [address] Social History Tobacco Use Types Packs/Day Years Used Date Smoking Tobacco: Never Alcohol Use Standard Drinks/Week Comments No 0 (1 standard drink = 0.6 oz pur e alcohol) Comments Unknown Sex and Gender Information Value Date Recorded Sex Assigned at Not on file Legal Sex 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 Gender Identity Not on file Sexual Orientation [...] on filedocumented in this encounter Care Teams Dry Plasterer Relationship Specialty Start Date End Date Hong Holder MD [address] [place] [address] PCP - General 06/06/16 01/11/20 Hong Holder MD [address] [place] [address] PCP - General 01/15/15 06/05/16 Juan Pablo Dominguez MD [address] [place] [address] PCP - General Family Medicine 01/12/20 08/06/20 Miscellaneous, Not In File PCP - General 08/07/20 2 Sanjeev Webster DO [address] [place] [address] PCP - General Family Medicine 03/11/21 documented as of this encounter
--- OUTSIDE RECORDS SUMMARY | 2024-04-08 18:20 | XMS_ITS | Patient Health Summary ---
Author Organization [facility] Simulation Address [address] [facility] [place] [address] Care Team Providers Care Puncher And Fastener Name Role Phone Juan Pablo Dominguez MD Primary Care Provider Meghan e Note from [facility],non-owned Affiliates and Associated Physician Practices is amultiple site organization consisting of ambulatory clinics and hospital sitesin [place], [place], [place] and [place]. This disclosure is being madepursuant to the Care Everywhere program and may not contain all information available regarding this patient. Last updated 17.[facility] Allergies No known active allergies Medications * [...] [facility] [address] [place] [address] * (ABNORMAL) CBC W AUTO [...] Auto 0 /100 WBC 08/11/2020 6:26 AM [facility] Blood BLOOD SPECIMEN / Unknown Lab Venipuncture / Unknown 08/11/2020 6:14 AM CDT 08/11/2020 6:24 AM CDT Neel Paulino DO LAB - HEMATOLOGY ORDERABLES [facility] [address] [facility] [place] [address] * (ABNORMAL) BASIC METABOLIC PANEL (CALCIUM TOTAL) (08/11/2020 6:14 AM CDT) Glucose 75 70 - 105 mg/dL 08/11/2020 6:47 AM T [facility] Sodium 140 136 - 145 mmol/L 08/11/2020 6:47 AM [facility] Potassium 4.5 3.5 - 5.1 mmol/L 08/11/2020 6:47 AM T [facility] Chloride 107 98 - 107 mmol/L 08/11/2020 6:47 AM CDT [facility] CO2 25 23 - 31 mmol/L 08/11/2020 6:47 AM CDT [facility] Calcium 10.0 8.4 - 10.4 mg/dL 08/11/2020 6:47 AM [facility] Anion Gap 8 8 - 18 [...] [facility] [address] [id number] * IR CAROTID CEREBRAL ANGIOGRAM (08/10/2020 9:59 [...] performed with 21-gauge micropuncture needle. A 5 Andorran sheath was inserted over a Bentson wire and connected to a regulated pressurized infusion. A 5 Andorran diagnostic catheter was advanced over the wire [...] ARTERY RUN: DSA run was obtained in NEPALESE and lateral views. Left common carotid artery [...] a 2.2 mm wide neck. Natalee Solis HOUSEKEEPING SUPERVISOR HOTEL-MEDICAL CLAIMS ASSISTANT IR ORDERABLES * (ABNORMAL) COMPREHENSIVE METABOLIC PANEL [...] - CHEMISTRY WINSTON TEJEDA Performing Organization Address City/[facility]/ZIP Co de Phone Number [facility] [address] [place] [address] * GLUCOSE - POINT OF CARE (08/09/2020 [...] OF CA RE ORDERABLES Performing Organization Address City/[facility]/ZIP Co de Phone Number [facility] [address] [address] * EKG 12-LEAD (08/09/2020 5:33 PM CDT) Ventricular Rate 66 BPM [facility] MUSE Atrial Rate 66 BPM [facility] M[facility] P-R Interval 208 ms SCH MUSE QRS Duration ms 144 ms SCH MUSE Q-T Interval ms 534 ms [facility] M[facility] QTC Calculation (Bezet) 559 ms SCH MUSE Calculated R Jackson -146 degrees SCH MUSE Calculated T Jackson 22 degrees [facility] MUSE [...] on 08/09/2020 at 2:10 PM Natalee Solis HOUSEKEEPING SUPERVISOR HOTEL-MEDICAL CLAIMS ASSISTANT MR ORDERABLES * ECHOCARDIOGRAM 2D WITH DOPPLER (08/09/2020 9:00 AM CDT) 08/09/2020 9:00 AM CDT Narrative Procedure Note Robin Pierre Jr., MD - 08/09/2020 [place] [address] Echocardiography Examination Transthoracic Name: ANA MARIA BOBO MPI#: MR#: [id number] Admission Number: [id number] Study Date: 08/09/2020 Study Time: 02:16 PM [...] to opacify the left ventricle. Facility Location: [facility] Indication: S/P AVR, Elevated troponin Procedure Belt Lacer: Ana Maria Chance [facility] Ordering Provider: Robin Pierre MD Reading Physician: [...] Jr., MD ECHO ORDERABLES Performing Organization Address City/State/[facility] Co de Phone Number [facility] [address] [place] [address] * GROSS + MICRO EXAM (05/12/2003 6:56 PM WHARF ATTENDANT) Result CASE NUMBER [id number] Comment: ORDERING [...] elevated areas which appear gritty on sectioning. Drop Board Man sections submitted in one cassette for decal. Tk/[facility] Microscopic Exam ? Sections show cardiac valvular tissue with severe calcific atherosclerosis. Acute inflammation is not seen. ??No bacterial vegetations are present. MC/ Diagnosis ? I. ?Aortic valve leaflet, resection ?A. ??Severe calcific atherosclerosis. MC/ Electrician Crane Maintenance ? [facility] Pathologist ?Carlos James M.D. [place]omed. ?05/15/2003 1448 <1> CPT code ? 33954, 57885 MISCELLANEOUS SAMPLES / Unknown 05/12/2003 6:56 PM WHARF ATTENDANT 05/12/2003 6:57 PM WHARF ATTENDANT Historical Provider LAB - PATHOLOGY/C YTOLOGY ORDERABLES Care Teams Puncher And Fastener Relationship Specialty Start Date End Date Juan Pablo Dominguez MD PCP - General Family Medicine 08/09/20
--- OUTSIDE RECORDS SUMMARY | 2024-04-08 18:20 | XMS_ITS | Encounter Summary ---
Author Organization [facility] Address [facility] [place] [address] [place] [address] Care Team Providers Care It Architect Name Role Phone Dianne Johnson RN Unavailable [phone] Sanjeev Webster DO Primary Care Provider + Reason for Visit * Reason Onset Date Comments Medication 04/08/2024 Trulicity - succ essful 2024 Encounter Details Date Type Department Care Team (Late st Contact Info) Description 04/08/2024 Patient Outreach [facility] Family & Internal Medicine [address] [address] Lola Haley, interpreter for the deaf Medication (Trulicity - successful 2024) Social History Tobacco Use Types Packs/Day Years [...] 12/08/2023 [facility] [...] in this encounter Progress Notes * Lola Haley CPhT - 04/08/2024 10:31 AM CST Med Adherence Patient Information About Their Medication Adherence: Trulicity Informant: Child/Children, Caregiver Current pharmacy: Retail Are current medications 90-day supply?: No Refills Needed: No action needed - medication was discontinued by physician (No longer taking Trulicity and now doing Ozempic) C TECHNICIAN documented in this encounter Plan of Treatment Upcoming Encounters Date Type Department Care Team (Late st Contact Info) Description 04/14/2024 2:00 PM MEDIC TECHNICIAN Office Visit [facility] Multispecialty Care - [facility] [address] [facility], [address] [place] [phone] Julio Pulido MD [address] [place] [address] documented as of this encounter Goals Goal Patient Goal Type Associated Problems Recent Progress Patient-Stated? Author Health - patient able to perform ADLs independently General On track(2023 9:49 AM CDT) No Dianne Johnson RN Note: 12/17/23: Patient stated she is independent with ASL's. Establish Plan for Symptom Monitoring-CHF General On track(2023 11:36 AM MEDIC TECHNICIAN) Dianne Corona RN Note: Patient will [...] Symptom Monitoring-COPD General On track(2023 11:36 AM MEDIC TECHNICIAN) Dianne Corona RN Note: Patient will [...] Symptom Monitoring-DM General On track(2023 4:33 PM MEDIC TECHNICIAN) Dianne Corona RN Note: Patient will [...] Symptom Monitoring-HTN General On track(2023 4:33 PM MEDIC TECHNICIAN) Dianne Corona RN Note: Patient will monitor B/P several times per week , record readings and report to physician or CC if B/P consistently >130/80 Take your medications as prescribed. Follow up with your provider as scheduled. Take your blood pressure at least several times a week if able. Establish Plan for Symptom Monitoring-paroxy smal atrial fib Lifestyle On track(2023 11:36 AM MEDIC TECHNICIAN) Dianne Corona, RN Note: Atrial Fib: Patient will recognize symptoms of atrial fibrillation and report to physician should they occur. Establish regular follow ups with Tile Helper, take medications exactly as directed without skipping doses. documented as of this encounter Visit Diagnoses Not on filedocumented in this encounter Additional Health Concerns Assessment Noted Time PHQ-9 Depression Total Score: 13 023 3:56 PM CDT documented as of this encounter Care Teams It Architect Relationship Specialty Start Date End Date Sanjeev Webster DO [address] [place] [address] PCP - General FAMILY PRACTICE 09/25/20 Dianne Johnson, RN [address] [place] [address] Assistant Scientist (Ambulatory) REGISTERED NURSE 08/14/20 documented as of this encounter
--- OUTSIDE RECORDS SUMMARY | 2024-04-08 18:20 | XMS_ITS | Encounter Summary ---
Author Organization [facility] Address [facility] [place] [address] [place] [address] Care Team Providers Care Tool Crib Supervisor Name Role Phone Dianne Johnson RN Unavailable [phone] Sanjeev Webster DO Primary Care Provider + Reason for Visit * Reason Onset Date Comments Hospital Follow Up 03/28/2024 Currently at [facility] Encounter Details Date Type Department Care Team (Late st Contact Info) Description 03/28/2024 Patient Outreach [facility] Family & Internal Medicine [facility] [address] [place] [address] Dianne Johnson, RN [address] [place] [address] Hospital Follow Up (Currently at [facility] ) Social History Tobacco Use Types Packs/Day [...] st Contact Info) Description 04/14/2024 2:00 PM SOFTWARE DEVELOPMENT ADVISOR Office Visit [facility] Multispecialty Care - [facility] [address] [facility], [address] [place] [address] Julio Pulido MD 3 [place] [address] documented as of this encounter Goals Goal Patient Goal Type Associated Problems Recent Progress Patient-Stated? Author Health - patient able to perform ADLs independently General On track(2023 9:49 AM CDT) Dianne Corona, RN Note: 12/17/23: Patient stated she is independent with ASL's. Establish Plan for Symptom Monitoring-CHF General On track(2023 11:36 AM SOFTWARE DEVELOPMENT ADVISOR) Dianne Corona, RN Note: Patient will recognize [...] Symptom Monitoring-COPD General On track(2023 11:36 AM SOFTWARE DEVELOPMENT ADVISOR) Dianne Corona RN Note: Patient will [...] Symptom Monitoring-DM General On track(2023 4:33 PM SOFTWARE DEVELOPMENT ADVISOR) Dianne Corona RN Note: Patient will [...] Symptom Monitoring-HTN General On track(2023 4:33 PM SOFTWARE DEVELOPMENT ADVISOR) Dianne Corona RN Note: Patient will monitor B/P several times per week , record readings and report to physician or CC if B/P consistently >130/80 Take your medications as prescribed. Follow up with your provider as scheduled. Take your blood pressure at least several times a week if able. Establish Plan for Symptom Monitoring-paroxy smal atrial fib Lifestyle On track(2023 11:36 AM SOFTWARE DEVELOPMENT ADVISOR) Dianne Corona RN Note: Atrial Fib: Patient will recognize symptoms of atrial fibrillation and report to physician should they occur. Establish regular follow ups with Salon Customer Experience Specialist, take medications exactly as directed without skipping doses. documented as of this encounter Visit Diagnoses Not on filedocumented in this encounter Additional Health Concerns Assessment Noted Time PHQ-9 Depression Total Score: 13 023 3:56 PM CDT documented as of this encounter Care Teams Tool Crib Supervisor Relationship Specialty Start Date End Date Sanjeev Webster DO [address] [place] [address] [id number] PCP - General FAMILY PRACTICE 09/25/20 Dianne Johnson, RN [address] [place] [address] Dope House Operator Helper (Ambulatory) REGISTERED NURSE 08/14/20 documented as of this encounter
--- OUTSIDE RECORDS SUMMARY | 2024-04-08 18:20 | XMS_ITS | Encounter Summary ---
Author Organization [facility] Address Pending sale to [facility] [place] [address] [place] [address] Care Team Providers Care Automotive Refinish Technician Name Role Phone Dianne Johnson RN Unavailable [phone] Sanjeev Webster DO Primary Care Provider + Reason for Visit * Reason Onset Date Comments Radiology Results 12/17/2023 Encounter Details Date Type Department Care Team (Late st Contact Info) Description 12/17/2023 Telephone [facility] Family & Internal Medicine [place] [address] [place] [address] Sanjeev Webster DO [address] [place] [address] Radiology Results Social History Tobacco [...] Recorded Patient Health Questionnaire-2 Score 0 12/08/2023 [facility] - [...] st Contact Info) Description 04/14/2024 2:00 PM NETEZZA DEVELOPER Office Visit [facility] Multispecialty Care - [address], [address] [place] [address] Julio Pulido MD 3 [place] [address] (work) documented as of this encounter Goals Goal Patient Goal Type Associated Problems Recent Progress Patient-Stated? Author Health - patient able to perform ADLs independently General On track(2023 9:49 AM CDT) Dianne Corona RN Note: 12/17/23: Patient stated she is independent with ASL's. Establish Plan for Symptom Monitoring-CHF General On track(2023 11:36 AM NETEZZA DEVELOPER) Dianne Corona RN Note: Patient will [...] Symptom Monitoring-COPD General On track(2023 11:36 AM NETEZZA DEVELOPER) Dianne Corona RN Note: Patient will [...] Symptom Monitoring-DM General On track(2023 4:33 PM NETEZZA DEVELOPER) Dianne Corona RN Note: Patient will [...] Symptom Monitoring-HTN General On track(2023 4:33 PM NETEZZA DEVELOPER) Dianne Corona RN Note: Patient will [...] documented as of this encounter Care Teams Automotive Refinish Technician Relationship Specialty Start Date End Date Sanjeev Webster DO [address] [place] [address] PCP - General FAMILY PRACTICE 09/25/20 Dianne Johnson RN [facility] [place] [address] Juice Weigher (Ambulatory) REGISTERED NURSE 08/14/20 documented as of this encounter
--- OUTSIDE RECORDS SUMMARY | 2024-04-08 18:20 | XMS_ITS | Encounter Summary ---
Author Organization [facility] Address [address] [place] [address]. [place] [address] [place] [address] Care Team Providers Care Oxide Furnace Tender Name Role Phone Dianne Johnson RN Unavailable [phone] Sanjeev Webster DO Primary Care Provider + Encounter Details Date Type Department Care Team (Late st Contact Info) Description 07/16/2021 Therapy Plan [facility] Diabetes and Endocrinology - [place] [address] [place] [address] Panda Moreno MD Social History [...] (Late Contact Info) Description 04/14/2024 2:00 PM SECTION BEAMER Office Visit [facility] Multispecialty Care - [facility] 3 [facility], [address] [place] [address] Julio Pulido MD 3 [place] [address] documented as of this encounter Goals Goal Patient Goal Type Associated Problems Recent Progress Patient-Stated? Author Health - patient able to perform ADLs independently General On track(2023 9:49 AM CDT) Dianne Corona RN Note: 12/17/23: Patient stated she is independent with ASL's. Establish Plan for Symptom Monitoring-CHF General On track(2023 11:36 AM SECTION BEAMER) Dianne Corona RN Note: Patient will recognize [...] Symptom Monitoring-COPD General On track(2023 11:36 AM SECTION BEAMER) Dianne Corona RN Note: Patient will recognize [...] Symptom Monitoring-DM General On track(2023 4:33 PM SECTION BEAMER) Dianne Corona RN Note: Patient will manage [...] Symptom Monitoring-HTN General On track(2023 4:33 PM SECTION BEAMER) iDanne Corona RN Note: Patient will monitor B/P [...] Rule Out 01/13/2022 01/13/2022 01/13/2022 12:48 PM SECTION BEAMER COVID-19 Rule Out 01/13/2022 01/13/2022 01/14/2022 12:15 AM SECTION BEAMER COVID-19 Rule Out 03/18/2022 03/18/2022 03/18/2022 12:27 PM SECTION BEAMER COVID-19 Rule Out 03/18/2022 03/18/2022 03/18/2022 12:57 PM SECTION BEAMER COVID-19 Rule Out 03/18/2022 03/18/2022 03/19/2022 1:58 PM SECTION BEAMER COVID-19 Rule Out 08/26/2022 08/26/2022 08/26/2022 4:56 PM CDT COVID-19 Rule Out 01/08/2024 01/08/2024 01/08/2024 1:05 PM CDT Assessment Noted Time PHQ-9 Depression Total Score: 0 05/25/19 22 9:23 AM CDT documented as of this encounter Care Teams Oxide Furnace Tender Relationship Specialty Start Date End Date Sanjeev Webster DO [address] [place] [address] PCP - General FAMILY PRACTICE 09/25/20 Dianne Johnson, RN [address] [place] [address] Spar Machine Operator (Ambulatory) REGISTERED NURSE 08/14/20 documented as of this encounter
--- OUTSIDE RECORDS SUMMARY | 2024-04-08 18:20 | XMS_ITS | Encounter Summary ---
Author Organization [facility] Address [facility]6 [facility] [place] [address] [place] [address] Care Team Providers Care Sales Service Representative Name Role Phone Dianne Johnson RN Unavailable [phone] Sanjeev Webster DO Primary Care Provider + Reason for Visit * Reason Onset Date Comments Hospital Follow Up 04/08/2024 Outreach call s Encounter Details Date Type Department Care Team (Late st Contact Info) Description 04/08/2024 Patient Outreach [facility] Family & Internal Medicine [address] [address] Court Robles RN [address] [place] [address] Hospital Follow Up (Outreach calls) Social History Tobacco Use Types Packs/Day Years [...] Score 0 12/08/2023 [facility] - Occupational Stress Questionnaire Answer Date [...] documented in this encounter Progress Notes * Court Robles RN - 04/08/2024 9:21 AM CST 04/08/24: CC called [facility] and spoke with Contreras. She reports that the patient did not discharge from the hospital, because she now has COVID. CC then called [facility] and patient remains there in room #303. CC spoke with Zarina and she said the patient never discharged due to having COVID now. TING HELPER documented in this encounter Plan of Treatment Upcoming Encounters Date Type Department Care Team (Late st Contact Info) Description 04/14/2024 2:00 PM BLASTING HELPER Office Visit [facility] Multispecialty Care - [facility] 3 [facility], [address] [place] [address] Julio Pulido MD 3 [place] [address] documented as of this encounter Goals Goal Patient Goal Type Associated Problems Recent Progress Patient-Stated? Author Health - patient able to perform ADLs independently General On track(2023 9:49 AM CDT) Dianne Corona RN Note: 12/17/23: Patient stated she is independent with ASL's. Establish Plan for Symptom Monitoring-CHF General On track(2023 11:36 AM BLASTING HELPER) Dianne Corona RN Note: Patient will [...] Symptom Monitoring-COPD General On track(2023 11:36 AM BLASTING HELPER) Dianne Corona RN Note: Patient will [...] Symptom Monitoring-DM General On track(2023 4:33 PM BLASTING HELPER) Dianne Corona RN Note: Patient will [...] Symptom Monitoring-HTN General On track(2023 4:33 PM BLASTING HELPER) Dianne Corona RN Note: Patient will monitor B/P several times per week , record readings and report to physician or CC if B/P consistently >130/80 Take your medications as prescribed. Follow up with your provider as scheduled. Take your blood pressure at least several times a week if able. Establish Plan for Symptom Monitoring-paroxy smal atrial fib Lifestyle On track(2023 11:36 AM BLASTING HELPER) No Dianne Johnson RN Note: Atrial Fib: Patient will recognize symptoms of atrial fibrillation and report to physician should they occur. Establish regular follow ups with Resident Advisor, take medications exactly as directed without skipping doses. documented as of this encounter Visit Diagnoses Not on filedocumented in this encounter Additional Health Concerns Assessment Noted Time PHQ-9 Depression Total Score: 13 023 3:56 PM CDT documented as of this encounter Care Teams Sales Service Representative Relationship Specialty Start Date End Date Sanjeev Webster DO [address] [place] [address] PCP - General FAMILY PRACTICE 09/25/20 Dianne Johnson, RN [address] [place] [address] Vice President Of Instruction (Ambulatory) REGISTERED NURSE 08/14/20 documented as of this encounter
--- OUTSIDE RECORDS SUMMARY | 2024-04-08 18:20 | XMS_ITS | CONTINUITY OF CARE DOCUMENT ---
Author Name gaetano salter Address Unknown Organization [facility] Address [address] [place] [address] [address] [place] [address] Phone [phone] Care Team Providers Care Coat Ironer Hand Name Role Phone Wendy Dey MD Unavailable [phone] Wendy Dey MD Unavailable [phone] INSURANCE PROVIDERS Payer name Policy type / Coverage type [place] red constitution party ID [employer] Other [id number]
--- OUTSIDE RECORDS SUMMARY | 2024-04-08 18:21 | XMS_ITS | Referral Summary ---
Author Organization [facility] [address] [place] [address] Address [address] [facility] [address] [place] [address] Care Team Providers Care National Opelint Analyst Name Role Phone Sanjeev Webster DO Primary Care Provide r Encounters Date Type Department Care Team Description 02/29/2024 10:30 AM DIRECTOR OF EARLY CHILDHOOD EDUCATION Office Visit [facility] Group Cardiology [address] [place] [address] [address] [place] [address] Paxton Villela MD History of mechanical aortic valve replacement (Primary Dx); Hypertension associated with diabetes (HCC); Coronary artery disease involving [place] coronary artery of [place] heart without angina pectoris; LBBB (left bundle branch block); Persistent atrial fibrillation (HCC); Hypertensive heart disease with congestive heart failure, unspecified heart failure type (HCC) from Last 3 Months Allergies Active Allergy Reactions Criticality Noted Date Comments Atorvastatin Muscle pain,Other (See comments) High 08/12/2021 Leg pain/cramps. Resolved after stopping. Bacitracin Benzalkonium Cortisone Rash,Unknown High 08/02/2023 Gramicidin D Hydrocortisone Neomycin Bdunbdpv-Rduvwbomgz-Vnxnh yxin Other (See comments) Low 07/31/2020 It [...] monitor 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 toxicity with ferry terminal agent u se 05/06/2019 Coronary artery disease invo lving [place] coronary artery of [place] heart without angina pectoris 05/06/2019 Abnormal stress [...] a associated with type 2 diabetes mellitus ([facility]) 07/16/2015 Overview (06/13/2016): DM type 2 with [...] on file Legal Sex Female 6:10 AM DIRECTOR OF EARLY CHILDHOOD EDUCATION Gender Identity Not on file Sexual Orientation Not on file Last Filed Vital Signs Vital Sign Reading Time Taken Comments Blood Pressure 90/64 02/29/2024 10:36 AM DIRECTOR OF EARLY CHILDHOOD EDUCATION Pulse 68 02/29/2024 10:36 AM DIRECTOR OF EARLY CHILDHOOD EDUCATION Temperature 36.6 ??C (97.8 ??F) 08/17/2020 12:52 AM C DT Respiratory Rate 20 08/17/2020 12:52 AM CDT Oxygen Saturation 98% 02/29/2024 10:36 AM DIRECTOR OF EARLY CHILDHOOD EDUCATION Inhaled Oxygen Concentration - - Weight 79.8 kg (176 lb) 02/29/2024 10:36 AM DIRECTOR OF EARLY CHILDHOOD EDUCATION Height 165.1 cm (5' 5 ) 02/29/2024 10:36 AM DIRECTOR OF EARLY CHILDHOOD EDUCATION Body Mass Index 29.29 02/29/2024 10:36 AM DIRECTOR OF EARLY CHILDHOOD EDUCATION Plan of Treatment Not on file Procedures [...] LAB BLOOD ORDERABLES Final Resul t [facility] [address] [facility] Department [place] [address] * (ABNORMAL) Hemoglobin A1c (08/14/2020 [...] children were not included. ?? (Diabetes Care 31:9912-2694, 2007). ??The eAG is not equivalent to a fasting glucose. Blood specimen (specimen) 08/14/2020 9:38 AM CDT 08/14/2020 9:54 AM CDT us Amparo Vergara MD LAB BLOOD ORDERABLES Final Resul t [facility] [address] [facility] Department [place] [address] from Last 3 Months or Most Recently Relevant to Health Maintenance Insurance [facility] Advance Directives For more information, please contact: [phone] Documents on File Type Date Recorded Patient Aerospace Technician Expl anation ADVANCE DIRECTIVE 09/04/2020 1:26 PM OUTSI DE [facility] DNR ADVANCE DIRECTIVE 09/03/2020 12:52 PM ADVANCE DIRECTIVE 08/16/2020 11:40 AM OUTS [facility] DNR * Full Code (Latest Code Status on File) Date Activated Date Inactivated Comments 08/11/2020 6:08 PM 08/17/2020 5:34 PM Care Teams National Opelint Analyst Relationship Specialty Start Date End Date Sanjeev Webster DO [address] [place] [address] PCP - General Family Medicine 03/11/21
--- OUTSIDE RECORDS SUMMARY | 2024-04-08 18:21 | XMS_ITS | Referral Summary ---
Author Organization [facility] [employer] Address [address] [facility] [place] [address] Care Team Providers Care Government Affairs Researcher Name Role Phone Juan Pablo Dominguez MD Primary Care Provider Unavailabl e Source Comments [facility] [employer],non-owned Affiliates and Associated Physician Practices is amultiple site organization consisting of ambulatory clinics and hospital sitesin [place], [place], [place] and [place]. This disclosure is being madepursuant to the Care Everywhere program and may not contain all information available regarding this patient. Last updated 17.[employer] Allergies No known active allergies Medications * [...] 4:06 AM 08/11/2020 4:47 PM Care Teams Government Affairs Researcher Relationship Specialty Start Date End Date Juan Pablo Dominguez MD PCP - General Family Medicine 08/09/20
--- OUTSIDE RECORDS SUMMARY | 2024-04-08 18:21 | XMS_ITS | Clinical Summary ---
Author Organization [facility] [address] Address [address] [place] [address] Care Team Providers Care Small Arms Repairer Name Role Phone Sanjeev Webster DO Primary Care Provide r Allergies Active Allergy Reactions Criticality Noted Date Comments Atorvastatin Muscle pain,Other (See comments) High 08/12/2021 Leg pain/cramps. Resolved after stopping. Bacitracin Benzalkonium Cortisone Rash,Unknown High 08/02/2023 Gramicidin D Hydrocortisone Neomycin Bqhowzno-Trinbgkopk-Njgwn yxin Other (See comments) Low 07/31/2020 It [...] monitor 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 toxicity with residential u se 05/06/2019 Coronary artery disease invo lving [place] coronary artery of [place] heart without angina pectoris 05/06/2019 Abnormal stress [...] Department Care Team Description 02/29/2024 10:30 AM CHIEF OF SURGERY Office Visit [facility] Cardiology [address] [place] [address] Paxton Villela MD History of mechanical aortic valve replacement (Primary Dx); Hypertension associated with diabetes (HCC); Coronary artery disease involving [place] coronary artery of [place] heart without angina pectoris; LBBB (left bundle branch block); Persistent atrial fibrillation (HCC); Hypertensive heart disease with congestive heart failure, unspecified heart failure type (HCC) from Last 3 Months Surgical History Surgery Date Site/Laterality Comments OTHER SURGICAL HISTORY Valve Replacement [facility] Medical History Medical History Date Comments [...] on file Legal Sex Female 6:10 AM CHIEF OF SURGERY Gender Identity Not on file Sexual Orientation Not on file Obstetrics History Last Filed Vital Signs Vital Sign Reading Time Taken Comments Blood Pressure 90/64 02/29/2024 10:36 AM CHIEF OF SURGERY Pulse 68 02/29/2024 10:36 AM CHIEF OF SURGERY Temperature 36.6 ??C (97.8 ??F) 08/17/2020 12:52 AM C DT Respiratory Rate 20 08/17/2020 12:52 AM CDT Oxygen Saturation 98% 02/29/2024 10:36 AM CHIEF OF SURGERY Inhaled Oxygen Concentration - - Weight 79.8 kg (176 lb) 02/29/2024 10:36 AM CHIEF OF SURGERY Height 165.1 cm (5' 5 ) 02/29/2024 10:36 AM CHIEF OF SURGERY Body Mass Index 29.29 02/29/2024 10:36 AM CHIEF OF SURGERY Plan of Treatment Health Maintenance Due Date [...] Screening-Bone Density Scan 07/16/2023 07/15/2021 Covid-19 Vaccine (4 - 2023-2 5 season) 2023 02/23/2021, 06/01/2020, 05/10/2020 Lipid [...] LAB BLOOD ORDERABLES Final Resul t [facility] [address] [facility] Department [place] [address] * (ABNORMAL) Hemoglobin A1c (08/14/2020 9:38 AM CDT) Pathologist [facility] Hgb A1C 6.0(H) 4.0 - 5.6 % [facility] Estimated Average Glucose 126 mg/dL [facility] Comment: The ADA recommends reporting an estimated Average Glucose (eAG) with all Hemoglobin A1c results using the equation derived from a study of 507 normal and diabetic adults. ??Minority populations were underrepresented and children were not included. ?? (Diabetes Care 31:8441-4329, 2008). ??The eAG is not equivalent to a fasting glucose. Blood specimen (specimen) 08/14/2020 9:38 AM CDT 08/14/2020 9:54 AM CDT Amparo Vergara MD LAB BLOOD ORDERABLES Final Resul t [facility] [address] [facility] Department [place] [address] from Last 3 Months or Most Recently Relevant to Health Maintenance Insurance [facility] Advance Directives For more information, please contact: [phone] Documents on File Type Date Recorded Patient Criminal Records Technician Expl anation ADVANCE DIRECTIVE 09/04/2020 1:26 PM OUTSI [facility] DNR ADVANCE DIRECTIVE 09/03/2020 12:52 PM ADVANCE DIRECTIVE 08/16/2020 11:40 AM OUTS [facility] DNR * Full Code (Latest Code Status on File) Date Activated Date Inactivated Comments 08/11/2020 6:08 PM 08/17/2020 5:34 PM Care Teams Small Arms Repairer Relationship Specialty Start Date End Date Sanjeev Webster DO [address] [place] [id number] PCP - General Family Medicine 03/11/21
--- OUTSIDE RECORDS SUMMARY | 2024-04-08 18:21 | XMS_ITS | Clinical Summary ---
Author Organization [facility] Address Formerly [facility] [place] [address] [place] [address] Care Team Providers Care Acidizer Water Well Name Role Phone Dianne Johnson RN Unavailable [phone] Sanjeev Webster DO Primary Care Provider + [...] No more then 2500 mg per day. 08/18/19 21 Active albuterol sulfate HFA 108 (90 Base) MCG/ACT inhalerIndications: Chronic obstructive pulmonary disease, unspecified COPD type ([facility]) INHALE 2 PUFFS BY MOUTH EVERY 6 HOURS NEEDED FOR WHEEZING 18 g 5 11/20/19 23 Active Blood Glucose Monitoring Suppl (ONE TOUCH ULTRA 2) w/Device KitIndications:Type 2 diabetes mellitus with stage 3b chronic kidney disease, without long-term current use of insulin ([facility]) 1 Device by Does not apply route daily. 1 kit 12/27/19 23 Active Lancets (ONETOUCH ULTRASOFT) lancetsIndications: Type 2 diabetes mellitus with stage 3b chronic kidney disease, without long-term current use of insulin ([facility]) 1 each by Other route as needed. Use as instructed 100 each 3 12/27/19 23 Active Glucose Blood (BLOOD GLUCOSE TEST STRIPS) StripIndications:Ty pe 2 diabetes mellitus with stage 3b chronic kidney disease, without long-term current use of insulin ([facility]) 1 Device by Does not apply route daily. 100 strip 3 12/27/19 23 Active simvastatin (ZOCOR) 10 MG tabletIndications:H yperlipidemia associated with type 2 diabetes mellitus ([facility]) Take 1 tablet (10 mg total) by mouth nightly at bedtime. 90 tablet 3 02/17/20 23 Active methIMAzole (TAPAZOLE) 5 MG tablet Take 1 tablet (5 mg total) by mouth daily. 05/04/19 24 Active warfarin (COUMADIN) 2 MG tabletIndications:C hronic anticoagulation Take 1 tablet (2 mg total) by mouth daily. 30 tablet 1 07/08/19 24 Active cinacalcet (SENSIPAR) 30 MG tablet Take 0.5 tablets (15 mg total) by mouth daily. 07/02/19 24 Active ferrous sulfate, 65 mg elemental, 325 (65 FE) MG tablet Take 1 tablet (325 mg total) by mouth daily with breakfast. Active vitamin B-12 (CYANOCOBALAMIN) (CYANOCOBALAMIN) 1000 mcg tablet Take 1 tablet (1,000 mcg total) by mouth daily. 08/26/19 24 Active Semaglutide (OZEMPIC, 0.25 OR 0.5 MG/DOSE, SC) Inject 0.5 mg into the skin once a week. Active warfarin (COUMADIN) 6 MG tabletIndications:C hronic anticoagulation Take 1 tablet (6 mg total) by mouth daily. 90 tablet 10/01/19 24 Active B Complex Cap capsule Take 1 capsule by mouth daily. Active potassium chloride CR (K-TAB) 10 MEQ Tab CR tabletIndications:H ypokalemia Take 1 tablet by mouth once daily 90 tablet 1 11/24/19 24 Active omeprazole (PRILOSEC) 40 MG capsuleIndications: GERD (gastroesophageal reflux disease) Take 1 capsule by mouth once daily 90 capsule 11/24/19 24 Active metoprolol succinate ER (TOPROL-XL) 25 MG 24 hr tabletIndications:A trial fibrillation with RVR ([facility]) Take 1 tablet (25 mg total) by mouth daily. 90 tablet 11/25/19 24 Active warfarin (COUMADIN) 1 MG tabletIndications:H /O mechanical aortic valve replacement,Chronic anticoagulation Take 1 tablet (1 mg total) by mouth daily. 30 tablet 11/25/19 24 Active alendronate (FOSAMAX) 35 MG tablet Take 1 tablet (35 mg total) by mouth every 7 days. Active WALKER MISC, DME,Indications:Acu te gout of right foot, unspecified cause 1 Device by Does not apply route as needed. 1 Device 12/21/19 24 025 Active venlafaxine XR (EFFEXOR-XR) 150 MG 24 hr capsuleIndications: Current mild episode of major depressive disorder without prior episode ([facility]) Take 1 capsule by mouth once daily 90 capsule 12/28/19 24 Active gabapentin (NEURONTIN) 300 MG capsuleIndications: Chronic low back pain, unspecified back pain laterality, unspecified whether sciatica present TAKE 1 CAPSULE BY MOUTH THREE TIMES DAILY 270 capsule 01/19/20 24 Active furosemide (LASIX) 20 MG tabletIndications:H ypertensive heart disease with congestive heart failure ([facility]) Take 1 tablet by mouth once daily 30 tablet 02/17/20 24 Active warfarin (COUMADIN) 5 MG tabletIndications:L mando term (current) use of anticoagulants,H/O mechanical aortic valve replacement Take 1 tablet by mouth once daily 30 tablet 02/17/20 24 Active colchicine 0.6 MG tabletIndications:A cute gout of left foot, unspecified cause Day 1: 1.2 mg at the first sign of flare, followed by 0.6 mg after 1 hour. Day 2 and after: take 0.6 mg once daily until resolves 30 tablet 02/24/20 24 Active HYDROcodone-acetami nophen (NORCO) 5-325 MG tabletIndications:C hronic Pain Take 1-2 tablets by mouth every 6 (six) hours as needed for Pain. Indications: Chronic Pain 60 tablet 02/29/20 24 Active ALPRAZolam (XANAX) 0.5 MG tabletIndications:A nxiety TAKE 1/2 (ONE-HALF) TABLET BY MOUTH NIGHTLY NEEDED FOR SLEEP 15 tablet 02/29/20 24 Active Active Problems Problem Noted Date Diagnosed Date Hyperthyroidism 06/22/2023 Heart failure with mildly re duced ejection fraction (HFmrEF) ([facility]) 02/16/2023 OLIVE (acute kidney injury) 08/26/2022 Graves' disease 07/07/2022 Cirrhosis of liver without a scites, unspecified hepatic cirrhosis type ([facility]) 07/07/2022 Stage 3b chronic kidney disease ([facility] ) 07/07/2022 Encounter for prophylactic measures, unspecified 05/20/2022 Paroxysmal atrial fibrillation ([facility]) 12/01/2021 Hypertension associated with type 2 diabetes mellitus ([facility]) 12/01/2021 Chronic heart failure with p reserved ejection fraction (HFpEF) ([facility]) 11/25/2021 Physical deconditioning 11/06/2021 Care Management 07/29/2021 Age-related osteoporosis with current pathologic al fracture 07/16/2021 Anxiety 05/21/2021 Metacarpal bone fracture 05/21/2021 Mitral valve disorder 05/21/2021 Vision loss 05/21/2021 COPD (chronic obstructive pu lmonary disease) ([facility]) 05/21/2021 Drug-induced constipation 05/21/2021 Hematoma 12/13/2020 Hyperlipidemia associated wi th type 2 diabetes mellitus ([facility]) 11/25/2020 Chest pain 11/22/2020 Contusion of scalp 11/22/2020 Knee pain 11/22/2020 Localized, primary osteoarthritis 11/22/2020 Osteoarthritis of knee 11/22/2020 Traumatic closed displaced fracture of distal en d of radius 11/22/2020 Shoulder joint pain 11/22/2020 Closed stable burst fracture of sixth thoracic vertebra, initial encounter ([facility]) 09/13/2020 Disorder of skin of trunk 09/07/2020 Cobalamin deficiency 09/07/2020 Dysphagia 09/07/2020 Syncope, unspecified syncope type 09/07/2020 Wrist joint pain 09/07/2020 Requires lifelong warfarin therapy 09/07/2020 Hyperparathyroidism ([facility]) 09/07/2020 Plantar fascial fibromatosis 09/07/2020 Osteoporosis 09/07/2020 Numbness 09/07/2020 Muscle cramps 09/07/2020 Anemia 08/14/2020 Overview (09/07/2020): Last Assessment & Plan: Continue ferrous sulfate 325 mg daily 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[facility]) 08/14/2020 Overview (09/07/2020): Last Assessment [...] with sta ge 3b chronic kidney disease ([facility]) 07/13/2019 Vascular dementia ([facility]) 07/13/2019 Diarrhea 07/13/2019 Abnormal stress test 05/06/2019 Coronary artery disease invo lving hoh coronary artery of hoh heart without angina pectoris 05/06/2019 Body mass index (BMI) 31.0-31.9, adult 0 Presence of prosthetic heart valve 02/23/2019 LBBB (left bundle branch block) 12/08/2018 Myopathy 02/17/2018 Diastolic heart failure ([facility]) 2017 Paroxysmal atrial flutter ([facility]) 08/2017 Compression fracture of thoracic vertebra ([facility]) 06/30/2017 Chronic anticoagulation 03/20/2017 H/O mechanical aortic valve replacement 03/20/19 18 Peripheral arterial occlusive disease 12/25/2016 Leukoencephalopathy 11/03/2016 Diverticular disease 10/12/2016 Internal hemorrhoids 10/12/2016 Diabetic polyneuropathy ([facility]) 2016 Parathyroid adenoma 09/17/2016 Disorder of rotator cuff 09/02/2016 Gastroesophageal reflux disease without esophagi tis 09/02/2016 Polymyalgia rheumatica ([facility]) 017 Major depression single episode, in partial pollo ssion 09/02/2016 Primary osteoarthritis involving multiple joints 09/02/2016 H/O mechanical aortic valve replacement 09/03/19 17 Unknown and unspecified causes of morbidity 05/2016 Overview (09/07/2020): Morbid obesity with BMI of 40.0-44.9, adult Hypertensive heart disease w ith congestive heart failure ([facility]) 07/16/2015 Overview (11/21/2019): Diastolic heart failure secondary to hypertension VAZQUEZ (obstructive sleep apnea) 07/16/2015 Overview (11/21/2019): VAZQUEZ on CPAP Benign hypertension with CKD (chronic kidney disease) stage III ([facility]) 08/15/2014 Overview (11/22/2020): Near syncope Blood pressure [...] 09/13/2020 09/17/2020 Chronic obstructive lung dis ease ([facility]) 09/07/2020 06/20/2021 Atrial fibrillation with rap id ventricular response ([facility]) 08/22/2020 07/07/2022 Senile purpura 07/13/2019 01/12/2023 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 toxic ity with halfway use 05/06/2019 02/03/2020 Prosthetic aortic valve stenosis 03/20/2017 02/03/2020 Kidney stone 02/03/2017 07/07/2022 Dizziness 08/15/2014 02/03/2020 Overview (11/21/2019): Dizziness History of anticoagulant therapy 08/15/2014 02/03/2020 Overview (11/21/2019): Chronic anticoagulation Encounters Date Type Department Care Team Description 04/08/2024 Patient Outreach [facility] Family & Internal Medicine [address] [phone] Lola Haley, asphalt paving foreman Medication (Trulicity - successful 2024) 04/08/2024 Patient Outreach [facility] Family & Internal Medicine [place] [address] [place] [address] Court Robles RN Hospital Follow Up (Outreach calls) 03/28/2024 Patient Outreach [facility] Family & Internal Medicine [facility] [id number] [place] [phone] Dianne Johnson RN Hospital Follow Up (Currently at [facility] ) 03/26/2024 Scan [facility] INFO SRVCS Scanned, Doc [facility] Image (SCAN) 03/24/2024 Scan [facility] INFO SRVCS Scanned, Doc [facility] CT (SCAN) 03/23/2024 Scan [facility] INFO SRVCS Scanned, [facility] Image (SCAN) 03/22/2024 Scan [facility] INFO SRVCS Scanned, [facility] Stress Test (SCAN) 03/21/2024 Scan [facility] INFO SRVCS Scanned, Doc Med Group CT (SCAN) 03/20/2024 Scan [facility] INFO SRVCS Scanned, Doc [facility] Image (SCAN) 03/18/2024 Scan [facility] INFO SRVCS Scanned, Doc [facility] Image (SCAN) 03/17/2024 Telephone [facility] Family & Internal [place] [address] [place] [address] Sanjeev Webster, DO Information 03/16/2024 Patient Outreach [facility] Internal [place] [address] [place] [address] Court Robles RN Hospital Follow Up (Call to [facility] .) 03/14/2024 Patient Outreach [facility] & Internal [facility] [phone] [place] [address] Dianne Johnson RN Hospital Follow Up (Admission notification to [facility] on 03/09/25.) 03/11/2024 Scan [facility] INFO SRVCS Scanned, [facility] Echo (SCAN) 03/10/2024 Scan [facility] INFO SRVCS Scanned, [facility] Image (SCAN) 03/09/2024 Scan [facility] INFO SRVCS Scanned, Doc [facility] 03/08/2024 Scan [facility] INFO SRVCS Scanned, [facility] Image (SCAN) 03/07/2024 Scan [facility] INFO SRVCS Scanned, [facility] Lab (SCAN); Image (SCAN) 03/07/[address] [phone] Sanjeev Webster, DO Other 03/03/[address] [address] Sanjeev Webster, DO Results 02/29/2024 1:40 PM RESEARCH MECHANIC Office Visit [address] [address] Sanjeev Webster, DO Gout (The patient presents for a 2 month follow up.); Diabetes (Follow up. No concerns. ) 02/29/[address] [address] Sanjeev Webster, DO Lab Order 02/29/2024 Patient Outreach [address] [address] Dianne Johnson RN Care Management 02/29/2024 Travel 02/26/2024 Scan [facility] INFO SRVCS Scanned, Doc [facility] 02/25/2024 Patient Outreach [address] [address] Dianne Johnson, DALE Care Management; Appointment Reminder 02/24/2024 1:40 PM RESEARCH MECHANIC Allied Health/Nurse Visit [address] [phone] Sanjeev Webster, DO Allied Health Visit (Fingerstick INR) 02/24/2024 Telephone [facility] Family & Internal [facility] [address] [place] [address] Sanjeev Webster, DO Results 02/24/2024 Travel 02/22/2024 Telephone [facility], [address] [address] Sania Gomez MD Called To Cancel Office Appt. 02/22/2024 Telephone [facility] Family Internal [place] [address] [place] [address] Sanjeev Webster, Called To Cancel Office Appt. 02/22/2024 Patient Outreach [place] [address] [place] [address] Dianne Johnson, RN Care Management 02/15/2024 Patient Outreach [facility] Internal [address] [place] [address] Dianne Johnson, RN Care Management 02/11/2024 Telephone [facility] Internal [address] [address] Sanjeev Webster, Information 02/11/2024 Patient Outreach [place] [address] [place] [address] Dianne Johnson, RN Care Management 02/10/2024 1:40 PM RESEARCH MECHANIC Allied Health/Nurse Visit [place] [address] [place] [address] Sanjeev Webster, Allied Health Visit (INR) 02/10/2024 Travel 02/05/2024 Telephone [facility] Internal [place] [address] [place] [address] Sanjeev Webster, DO Results 02/03/2024 Telephone [facility] Internal [facility] [address] [place] [address] Sanjeev Webster, DO Referral 02/02/2024 1:40 PM RESEARCH MECHANIC Allied Health/Nurse Visit [facility] Internal [facility] [address] [place] [address] Sanjeev Webster, DO Anticoagulation 02/02/2024 Travel 02/01/2024 Scan [facility] INFO SRVCS Scanned, [facility] 01/29/2024 Scan [facility] INFO SRVCS Scanned, Doc [facility] 01/29/2024 Telephone [facility] Internal [place] [place] [address] Sanjeev Webster, DO Results 01/27/2024 Telephone [facility] Internal [place] [address] [place] [address] Sanjeev Webster, DO Appointment Request 01/27/2024 Patient Outreach [facility] [address] [place] [address] Dianne Johnson, DALE Care Management 01/15/2024 10:40 AM RESEARCH MECHANIC Allied Health/Nurse Visit [facility] Internal [facility] [address] [place] [address] Sanjeev Webster, DO Anticoagulation 01/15/2024 Travel 01/13/2024 Telephone [facility] [address] [place] [address] Sanjeev Webster, DO Appointment Request 01/13/2024 Patient Outreach [facility] [address] [place] [address] Dianne Johnson RN Care Management 01/08/2024 1:40 PM CDT Office Visit [facility] & Internal Medicine [address] [address] Sanjeev Webster, DO Headache (The patient states she had chills, headache and sweats. The patient had negative covid test at home.) 01/08/2024 - 01/08/2024 11:59 PM CDT Hospital Encounter [facility] [address] [place] [address] Sanjeev Webster, DO Discharge Disposition: Home or Self Care (Routine Discharge) 01/08/2024 Travel 01/07/2024 Telephone [facility] Family & Internal Medicine [address] [address] Sanjeev Webster, Medication Request; Advice from Last 3 Months Immunizations Name Administration [...] Tdap (Generic) 09/05/2020,06/05/2016 Tetanus/Diptheria 07/22/2014 Zoster (Zostavax) [address]271 Unt/0.65Ml 12/25/2015 Family History Medical History Relation [...] Comments Blood Pressure 128/86 02/29/2024 1:52 PM RESEARCH MECHANIC Pulse 76 02/29/2024 1:52 PM RESEARCH MECHANIC Temperature 37 ??C (98.6 ??F) 02/29/2024 1:52 PM RESEARCH MECHANIC Respiratory Rate 16 02/29/2024 1:52 PM RESEARCH MECHANIC Oxygen Saturation 98% 02/29/2024 1:52 PM RESEARCH MECHANIC Inhaled Oxygen Concentration - - Weight 80.1 kg (176 lb 9.6 oz) 02/29/2024 1:52 P M RESEARCH MECHANIC Height 165.1 cm (5' 5 ) 02/29/2024 1:52 PM RESEARCH MECHANIC Body Mass Index 29.39 02/29/2024 1:52 PM RESEARCH MECHANIC Plan of Treatment Upcoming Encounters Date Type Department Care Team (Late st Contact Info) Description 04/14/2024 2:00 PM RESEARCH MECHANIC Office Visit [facility] Multispecialty Care - [address], [address] [place] [address] Julio Pulido MD [address] [place] [address] Health Maintenance Due Date Last Done Comments Annual Medicare Wellness Visit 2009 PHQ-2 (Physician Agdaagux) 03/09/2024 12/08/2023 Diabetes: Retinopathy Eye Exam 04/21/2024 04/21/2022 Kidney [...] 09/05/2020, 06/05/2016, Additional history exists COVID-19 Vaccine ( season) 2112 08/29/2021, 02/23/2021, 06/01/2020, Additional history exists Postponed from 11/08/2023 (Going to Outside Clinic) Pneumococcal Vaccine: 65+ Years Completed 03/30/2017, 06/15/2015 Hepatitis C Completed 02/03/2023, 01/08, 02/03/2023, Additional history exists Dexa Scan (General) Completed 11/24/2023, 02/24/2023, 02/24/2023, Additional history exists Influenza Adult Completed 12/08/2023, 08/2022, 12/23/2021, Additional history exists Meningococcal B Vaccine Aged Out No l onger eligible based on patient's age to complete this topic Meningococcal Vaccine Aged Out No claudette davian [...] Symptom Monitoring-CHF General On track(2023 11:36 AM RESEARCH MECHANIC) Dianne Corona, RN Note: Patient will recognize [...] Symptom Monitoring-COPD General On track(2023 11:36 AM RESEARCH MECHANIC) Dianne Corona RN Note: Patient will [...] Symptom Monitoring-DM General On track(2023 4:33 PM RESEARCH MECHANIC) Dianne Corona RN Note: Patient will [...] Symptom Monitoring-HTN General On track(2023 4:33 PM RESEARCH MECHANIC) Dianne Coroan RN Note: Patient will monitor B/P several times per week , record readings and report to physician or CC if B/P consistently >130/80 Take your medications as prescribed. Follow up with your provider as scheduled. Take your blood pressure at least several times a week if able. Establish Plan for Symptom Monitoring-paroxy smal atrial fib Lifestyle On track(2023 11:36 AM RESEARCH MECHANIC) Dianne Corona RN Note: Atrial Fib: Patient will recognize symptoms of atrial fibrillation and report to physician should they occur. Establish regular follow ups with Carton Packaging Machine Operator, take medications exactly as directed without skipping doses. Procedures Procedure Name Priority Date/Time Associated Diagnosis Comments IMAGE GENERIC 03/26/2024 CT GENERIC 03/24/2024 IMAGE GENERIC 03/23/2024 STRESS TEST (SCAN ORDER) 03/22/2024 STRESS TEST (SCAN ORDER) 03/22/2024 CT GENERIC 03/21/2024 IMAGE GENERIC 03/20/2024 IMAGE GENERIC 03/18/2024 ECHO GENERIC (SCAN ORDER) 03/11/2024 IMAGE GENERIC 03/10/2024 IMAGE GENERIC 03/08/2024 OUTSIDE LAB (SCAN ORDER) 03/07/2024 OUTSIDE PT/INR (SCAN ORDER) 03/07/2024 IMAGE GENERIC 03/07/2024 COLLECT.CAPILLARY (FNGR,HEEL,EAR) Routine 02/29/2024 1:44 PM RESEARCH MECHANIC Type 2 diabetes mellitus with stage 3b chronic kidney disease, without long-term current use of insulin ([facility]) HEMOGLOBIN, GLYCOSYLATED Routine 02/29/2024 Type 2 diabetes mellitus with stage 3b chronic kidney disease, without long-term current use of insulin ([facility]) PROTHROMBIN TIME, FINGERSTICK Routine 02/24/2024 terminologist (current) use of anticoagulants PROTHROMBIN TIME, FINGERSTICK Routine 02/10/2024 terminologist (current) use of anticoagulants PROTHROMBIN TIME, VENOUS Routine 02/02/2024 1:52 PM RESEARCH MECHANIC terminologist (current) use of anticoagulants COLLECTION VENOUS BLOOD VENIPUNCTURE Routine 02/02/2024 1:50 PM RESEARCH MECHANIC terminologist (current) use of anticoagulants COLLECT.CAPILLARY (FNGR,HEEL,EAR) Routine 02/02/2024 1:50 PM RESEARCH MECHANIC retirement (current) use of anticoagulants PROTHROMBIN TIME, FINGERSTICK Routine 02/02/2024 terminologist (current) use of anticoagulants COLLECT.CAPILLARY (FNGR,HEEL,EAR) Routine 01/15/2024 10:34 AM RESEARCH MECHANIC terminologist (current) use of anticoagulants PROTHROMBIN TIME, FINGERSTICK Routine 01/15/2024 terminologist (current) use of anticoagulants CORONAVIRUS (COVID 19) PCR Routine 01/08/2024 1:05 PM CDT Chills (without fever) CORONAVIRUS (COVID-19) INFLUENZA A & B ANTIGEN IA PANEL Routine 01/08/2024 Chills (without fever) BONE DENSITY GENERIC (SCAN ORDER) 11/24/2023 LIPID PANEL Routine 08/14/2023 12:00 PM CDT Type 2 diabetes mellitus with stage 3b chronic kidney disease, without long-term current use of insulin ([facility]) Heart failure with mid-range ejection fraction (HFmEF) ([facility]) Chronic anticoagulation Paroxysmal atrial fibrillation ([facility]) Hyperparathyroidism ([facility]) Hyperthyroidism HEP C SCANNED ORDERS Routine 02/03/2023 DIABETIC RETINOPATHY EXAM (NEGATIVE)(SCAN ORDER) Routine 04/21/2022 from Last 3 Months or Most Recently Relevant to Health Maintenance Results * IMAGE GENERIC (03/26/2024) Only the most recent of7 resultswithin the time period is included. Anatomical Region Laterality Modality Other 03/26/2024 [facility] Scanned SCANNING Final Resu lt * CT GENERIC (03/24/2024) Only the most recent of2 resultswithin the time period is included. Anatomical Region Laterality Modality Other 03/24/2024 [facility] Scanned SCANNING Final Resu lt * STRESS TEST (SCAN ORDER) (03/22/2024) Only the most recent of2 resultswithin the time period is included. 03/22/2024 [facility] Scanned SCANNING Final Resu lt * ECHO GENERIC (SCAN ORDER) (03/11/2024) Anatomical Region Laterality Modality Other 03/11/2024 [facility] Scanned SCANNING Final Resu lt * OUTSIDE PT/INR (SCAN ORDER) (03/07/2024) 03/07/2024 [facility] Group Scanned SCANNING Final Resu lt * OUTSIDE LAB (SCAN ORDER) (03/07/2024) 03/07/2024 [facility] Group Scanned SCANNING Final Resu lt * HEMOGLOBIN, GLYCOSYLATED (02/29/2024) HGB A1C 5.5 % [facility] 02/29/2024 us Sanjeev P Luchtefneel DO LABORATORY Final Re sult [address] [address], [place] * PROTIME/INR, FINGERSTICK (02/24/2024) Only the most recent of4 resultswithin the time period is included. INR WHOLE BLOOD 2.00 MG-S [facility] 02/24/2024 us Sanjeev P Luchtefeld DO LABORATORY Final Re sult [address] [address], [place] * (ABNORMAL) PROTIME/INR, VENOUS (02/02/2024 1:52 PM RESEARCH MECHANIC) PROTIME 15.6(H) 9.3 - 11.6 SEC 02/02/2024 8:12 PM RESEARCH MECHANIC [facility] INR 1.5(H) 0.9 - 1.1 02/02/2024 8:12 PM RESEARCH MECHANIC [facility] Comment: TREATMENT OR PROPHYLAXIS AGAINST: ?? THERAPEUTIC RANGE (INR): ?VENOUS THROMBOSIS ? 2.0-3.0 ?PULMONARY EMBOLUS ? 2.0-3.0 ?? MECHANICAL PROSTHETIC VALVES ? 2.5-3.5 02/02/2024 1:52 PM RESEARCH MECHANIC Sanjeev Webster DO LABORATORY Final Re sult [facility] [address] [place] [address], * CORONAVIRUS (COVID 19) PCR (01/08/2024 1:05 PM CDT) Pathologist [facility] SPEC DESCRIPTION NASAL 01/08/20 24 1:05 PM CDT [facility] CORONAVIRUS SARS COV 2 PCR (RESP) NEGATIVE NEGATIVE 01/09/2024 10:58 PM CDT [facility] Comment: THE SARS-CoV-2 TEST HAS BEEN AUTHORIZED BY THE FDA UNDER AN EUA FOR USE BY AUTHORIZED LABORATORIES. PERFORMED BY NUCLEIC ACID AMPLIFICATION PCR NASAL STRUCTURE / Unknown 01/08/2024 1:05 PM CDT aSnjeev Webster DO MICROBIOLOGY - GENERAL O RDERABLES Final Result [facility] [address] [place] [address], * CORONAVIRUS (COVID-19) INFLUENZA A & B ANTIGEN IA PANEL (01/08/2024) CORONAVIRUS ANTIGEN IA NEGATIVE NEGATIVE [facility] INFLUENZA A NEGATIVE NEGATIVE [facility] INFLUENZA B NEGATIVE NEGATIVE [facility] Internal Control: VALID VALID [facility] NASAL STRUCTURE / Unknown 01/08/2024 Sanjeev Webster DO MICROBIOLOGY - GENERAL O RDERABLES Final Result Performing Organization Address [facility]/ZIP Co de Phone Number [facility] [address] [place] [address], [place] * BONE DENSITY GENERIC (SCAN ORDER) (11/24/2023) Anatomical Region Laterality Modality Other 11/24/2023 [facility] Scanned SCANNING Final Resu lt * (ABNORMAL) LIPID PANEL (08/14/2023 12:00 PM CDT) CHOLESTEROL 201(H) <200 MG/DL 08/14/2023 7:44 PM CDT [facility] TRIGLYCERIDES 97 <150 MG/DL 08/14/2023 7:44 PM CDT [facility] HDL 66 >40 MG/DL 08/14/2023 7:44 PM CDT [facility] LDL-C 116(H) <100 MG/DL 08/14/2023 7:44 PM CDT [facility] VLDL CALCULATION 19 5 - 28 MG/DL 08/14/2023 7:44 PM CDT [facility] CHOL/HDL RATIO 3.0 0.0 - 4.0 08/14/2023 7:44 PM CDT [facility] LDL/HDL 1.8 0.41 - 2.13 08/14/2023 7:44 PM CDT [facility] NON HDL CHOLESTEROL 135 <140 MG/DL 08/14/2023 7:44 PM CDT [facility] 08/14/2023 12:0 0 PM CDT us Sanjeev Webster DO LABORATORY Final Re sult Performing Organization Address City/[facility]/ZIP Co de Phone Number [facility] [address] [place] [address], * HEP C SCANNED ORDERS (02/03/2023) us [facility] Scanned SCANNING Final Resu lt Performing Organization Address City/[facility]/ZIP Co de Phone Number [facility] * DIABETIC RETINOPATHY EXAM (NEGATIVE)(SCAN) (04/21/2022) us [facility] Scanned SCANNING Final Resu lt Performing Organization Address [facility] Co de Phone Number [facility] from [...] 4:17 PM 10/21/2021 4:52 PM Care Teams Acidizer Water Well Relationship Specialty Start Date End Date Sanjeev Webster DO [address] [place] [phone] PCP - General FAMILY PRACTICE 09/25/20 Dianne Johnson, RN [address] [place] [address] Retail Office Manager (Ambulatory) REGISTERED NURSE 08/14/20
--- OUTSIDE RECORDS SUMMARY | 2024-04-08 18:21 | XMS_ITS | Clinical Summary ---
Author Organization [facility] Address [address] [facility] [address] [facility] [place] [address] Care Team Providers Care Camp Boss Name Role Phone Juan Pablo Dominguez MD Primary Care Provider Unavailabl e Source Comments [facility],non-owned Affiliates and Associated Physician Practices is amultiple site organization consisting of ambulatory clinics and hospital sitesin [place], [place], [place] and [place]. This disclosure is being madepursuant to the Care Everywhere program and may not contain all information available regarding this patient. Last updated 17.[facility] [facility] Allergies No known active allergies Medications * [...] 1944 DTAP/TDAP/TD VACCINES (1 - Tdap) 05/23/1963 PNEUMOCOCCAL VACCINE 50+ (1 of 1 - PCV) 1994 ZOSTER VACCINE (1 of 2) 1994 Respiratory Syncytial Virus (RSV) Vaccine Pt: or over 60 yrs (1 - 1-dose 75+ series) 05/23/2019 COVID-19 VACCINE ( - season) 2023 08/29/2021, 02/23/2021, 06/01/2020, Additional history exists INFLUENZA VACCINE (#1) 2023 9, 12/03/2017, 12/25/2016, Additional history exists DEPRESSION SCREENING 03/09/2024 MEDICARE AWV ? CALENDAR YEAR 2024 HEPATITIS B VACCINE Aged Out No longe r eligible based on patient's age to complete this topic HIB VACCINE Aged Out No longer eligi ble based on patient's age to complete this topic HPV VACCINE Aged Out No longer eligi ble based on patient's age to complete this topic MENINGOCOCCAL (Group B) VACCINE Aged Out No longer eligible based on patient's age to complete this topic MENINGOCOCCAL VACCINE Aged Out No claudette davian eligible based on patient's age to complete this topic Advance Directives * Full Code (Latest Code Status on File) Date Activated Date Inactivated Comments 08/09/2020 4:06 AM 08/11/2020 4:47 PM Care Teams Camp Boss Relationship Specialty Start Date End Date Juan Pablo Dominguez MD PCP - General Family Medicine 08/09/20
--- OUTSIDE RECORDS SUMMARY | 2024-04-08 18:21 | XMS_ITS | Continuity of Care Document ---
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 0 BRAIN NATRIURETIC PEPTIDE (BNP) 020 PROTHROMBIN TIME W/INR (PROTIME,PT) ROUTINE VENIPUNCTURE OFFICE [id number]-[id number] BODY MASS INDEX DOCD SYST BP LT 130 MM HG DIAST BP < 80 MM HG CBC, INC PLATELETS AND DIFFERENTIAL COMPREHEN METABOLIC PANEL CMP 0 FERRITIN LEVEL IRON (FE), TOTAL TIBC, & % SATURATION PROTHROMBIN TIME W/INR (PROTIME,PT) ROUTINE VENIPUNCTURE OFFICE EGFLM-LNO-DNZACHYL BODY MASS INDEX DOCD SYST BP LT 130 MM HG DIAST BP < 80 MM HG Pt inelig neg scrn depres CBC, INC PLATELETS AND DIFFERENTIAL COMPREHEN METABOLIC PANEL CMP 0 FERRITIN LEVEL PROTHROMBIN TIME W/INR (PROTIME,PT) ROUTINE VENIPUNCTURE MICROALBUMIN, QN (URINE) CREATININE, (U-R) OFFICE NRFXN-GNJ-PEOTCSAI BODY MASS INDEX DOCD SYST BP GE [...] screen annual Clin depression screen doc OFFICE [id number]-[id number] PROTIME (PT) - OFFICE LAB ONLY 20 [...] STICK-COLLECTION OF CAPIL MIRIAM BLOOD SPECIMEN OFFICE RPUST-OGN-SKCNPBBE BODY MASS INDEX DOCD SYST BP >= 140 MM HG6 IT DIAST BP < 80 MM HG Pt inelig neg scrn depres CBC, INC PLATELETS AND DIFFERENTIAL COMPREHEN METABOLIC PANEL CMP 0 HEMOGLOBIN A1C HGA1C, GLYCO PROTHROMBIN TIME W/INR (PROTIME,PT) VITAMIN B12 (SERUM) ROUTINE VENIPUNCTURE OFFICE UGFNX-KRS-CDZXSOUK BODY MASS INDEX DOCD SYST BP LT [...] MED MERGE DSCHRG MED/CURRENT MED MERGE OFFICE DHXXH-VMV-EQPHMISZ BODY MASS INDEX DOCD SYST BP LT [...] (SERUM) VITAMIN D, 25-HYDROXY ROUTINE VENIPUNCTURE OFFICE HTBTO-AGM-ENFVBVRU BODY MASS INDEX DOCD SYST BP LT 130 MM HG DIAST BP < 80 MM HG PROTIME (PT) - OFFICE LAB ONLY 19 FINGER OR HEEL STICK-COLLECTION OF CAPIL MIRIAM BLOOD SPECIMEN OFFICE [id number]-CHK-[id number] BODY MASS INDEX DOCD SYST BP LT 130 MM HG DIAST BP < 80 MM HG PROTIME (PT) - OFFICE LAB ONLY 19 FINGER OR HEEL STICK-COLLECTION OF CAPIL MIRIAM BLOOD SPECIMEN OFFICE JIQNV-XGP-PMRKEZWW BODY MASS INDEX DOCD SYST BP LT 130 MM HG DIAST BP < 80 MM HG PROTIME (PT) - OFFICE LAB ONLY 19 FINGER OR HEEL STICK-COLLECTION OF CAPIL MIRIAM BLOOD SPECIMEN Advance Directives Directive Yes / No Effective Date File Name No Information Encounters Encounter Description Practice Location Reason(s) For Visit Diagnoses Date Provider Providers Copied on Encounter [facility], [address], [place], [place], [address] , tel: [phone] [facility] Internal Medicine No Information 1 Keaton Burch. [facility] [place], [address], [place]. [phone] [facility], [address], [place], [place], [address] , tel: [phone] [facility] No Information 0 1 Christi Hayes. [address] [place], [place], [address], [place]. [phone] OFFICE PHMBH-IEV-DUW LUIS [facility], [address], [place], [place], [address] , tel:[phone] [facility] Medicine Chronic Conditions (chief complaint) Hypertensive [...] onic obstructive airway disease 0 Keaton Burch. [address] [place] [address], [address], . tel:[phone] Referring Provider: Natalee Mcghee, [address] [place] [address], [address] . tel:[phone] [facility], [address], [place], [place], [address] , tel:[phone] [facility] No Information 0 Yara Albright. [address] [place] [address], [id number], . tel:[phone] OFFICE CHHAC-RKD-MPF [facility], [address], [place], [place], [address] , tel:[phone] [facility] Medicine Chronic Conditions (chief complaint) Body [...] peripheral angiopathy without gangrene 0 Kena Dawson. [address] [place] [address], [address], . tel:[phone] Referring Provider: Natalee Mcghee, [address] [place] [address], [address] . tel:[phone] [facility], [address], [place], [place], [address] , tel: [phone] [facility] Unspecified atrial flutterEssenti al (primary) hypertension Payam-2 0 Yara Albright. [address] [place] [address], [address], [place]. tel:[phone] [facility], [address], [place], [place], [address] , tel: [phone] Care Management No Information Payam-0 0 Yara Albright. [address] [place] [address], [id number], . tel:[phone] OFFICE QHDHA-HDD-NFM [facility], [address], [place], [place], [address] , [place] tel: [phone] [facility] Chronic Conditions (chief complaint) Iron [...] angiopathy without gangrene Payam-0 0 Yara Albright. [address] [place] [address], [id number], [place]. tel:[phone] Referring Provider: Natalee Mcghee, [address] [place] [address], [address] . tel:[phone] OFFICE JRYVS-SIS-RXW [facility], [address], [place], [place], [address] , [place] tel: [phone] [facility] Chronic Conditions (chief complaint) Presence [...] yosteoarthriti s, unspecified July-0 0 Yara Albright. [address] [place] [address], [id number], . tel:[phone] Referring Provider: Natalee Mcghee, [address] [place] [address], [address] . tel:[phone] [facility], [address], [place], [place], [address] , tel: [phone] [facility] Presence of prosthetic heart valveMild cognitive impairmentLong term (current) use of anticoagulants Jun- 0 Gallo Pitts. [address] [facility], [address], [place], [address], [place]. tel:[phone] Referring Provider: Hong Holder, [address] [facility] [address], [place], [address] . tel:[phone] [facility], [address], [place], [place], [address] , tel: [phone] [facility] Hypertensive heart disease with heart failure Jun-2 0 Gallo Pitts. [address] [facility], [address], [place], [address], [place]. [phone] [facility], [address], [place], [place], [address] , tel: [phone] [facility] Presence of prosthetic heart valveLong term (current) use of anticoagulants Apr-2 2-202 0 Gallo Pitts. [address], [address], [place], [address], . tel:[phone] Referring Provider: Hong Holder, [address], [place], [address] . tel:[phone] [facility], [address], [place], [place], [address] , tel: [phone] [facility] No Information 0 Gallo Pitts. [address], [address], [place], [address], . tel:[phone] [facility], [address], [place], [place], [address] , tel: [phone] [facility] Presence of prosthetic heart valveLong term (current) use of anticoagulants 0 Gallo Pitts. [address], [address], [address], [place]. [phone] Referring Provider: Hong Holder, [address], [place], [address] . tel:[phone] [facility] [address], [place], [place], [address] , tel: [phone] [facility] Presence of prosthetic heart valveLong term (current) use of anticoagulants 0 Gallo Pitts. [address], [address], [place], [address], [place]. tel:[phone] Referring Provider: Hong Holder, [address], [place], [address] . tel:[phone] [facility], [address], [place], [place], [address] , tel: [phone] [facility] Nurse Visit (chief complaint) Presence of prosthetic heart valveLong term (current) use of anticoagulants 0 Gallo Pitts. [address], [address], [place], [place], [address], [place]. tel:[phone] Referring Provider: Hong Holder, [address], [place], [address] . tel:[phone] OFFICE EIYAI-QYW-AQM ANDED [facility], [address], [place], [place], [address] , tel: [phone] [facility] Sick (chief complaint)C hronic Conditions (chief complaint) Respiratory illnessEssenti al (primary) hypertension 0 0 Gallo Pitts. [address] [place] , [address], [place], [place], [address], [place]. tel:[phone] Referring Provider: Hong Holder, [address], [place], [address] . tel:[phone] [facility], [address], [place], [place], [address] , tel: [phone] [facility] DizzinessNumbn essSyncope, unspecified syncope type 0 Gallo Pitts. [address] , [address], [place], [place], [address], [place]. tel:[phone] OFFICE DCEEP-NVY-CGI LUIS [facility], [address], [place], [place], [address] , tel: [phone] [facility] 3 month (chief complaint)C hronic Conditions (chief complaint) Body mass index (BMI) 31.0-31.9, adultPre-synco peChronic obstructive airway diseasePrimary hyperparathyro idismHypertens julien heart disease with heart failureArterio sclerosis of habematolel arteries of extremityType 2 diabetes mellitus with diabetic polyneuropathy Vitamin B12 deficiencyChro kaushik diastolic (congestive) heart failureAtheros clerosis of aortaMajor depressive disorder, single episode, in partial remissionParox ysmal atrial fibrillation 0 Gallo Pitts. [address] [place] , [address], [place], [place], [address], [place]. tel:[phone] Referring Provider: Hong Holder, [address], [place], [address] . tel:[phone] [facility] [address], [place], [place], [address] , tel: [phone] [facility] Presence of prosthetic heart valveLong term (current) use of anticoagulants 0 Gallo Pitts. [address] , [address], [place], [address], . tel:[phone] Referring Provider: Hong Holder, [address], [place], [address] . tel:[phone] [facility] [address], [place], [place], [address] , tel: [phone] [facility] Presence of prosthetic heart valveLong term (current) use of anticoagulants Gallo Pitts. [address] , [address], [place], [address], [place]. tel:[phone] Referring Provider: Hong Holder, [address], [place], [address] . tel:[phone] [facility] [address], [address] , tel: [phone] Care Management Atrial fibrillation, unspecified type Gallo Pitts. [address] , [address], [place], [address], [place]. tel:[phone] Transitional Care- First 7 Days Of Discharge [facility] [address], [place], [place], [address] , tel: [phone] [facility] Hospital F/U (chief complaint) Body mass index (BMI) 32.0-32.9, adultAcute frontal sinusitis, recurrence not specifiedAtria l fibrillation, unspecified typeH/O prosthetic heart valve Gallo Pitts. [address] , [address], [address], [place]. tel:[phone] Referring Provider: Hong Holder, [address], [place], [address] . tel:[phone] [facility], [address], [place], [place], [address] , tel: [phone] Care Management No Information Gallo Pitts. [address], [address], [place], [address], [place]. [phone] Referring Provider: Hong Holder, [address], [place], [address] . tel:[phone] [facility], [address], [place], [place], [address] , tel: [phone] Care Management Chronic obstructive airway disease Dec- Gallo Pitts. [address], [address], [place], [address], [place]. [phone] Referring Provider: Hong Holder, [address], [place], [address] . tel:[phone] OFFICE YVHGL-QDC-RDZ LUIS [facility], [address], [place], [place], [address] , tel: [phone] [facility] Follow Up (chief complaint) Obstructive sleep apnea (adult) (pediatric)Mem ory lossAdoxbowce care planningCerebr al atherosclerosi sMild cognitive impairment Dec- 9 Gallo Pitts. [address], [address], [address], [place]. [phone] Referring Provider: Hong Holder, [address], [place], [address] . tel:[phone] [facility], [address], [place], [place], [address] , tel: [phone] [facility] Presence of prosthetic heart valveLong term (current) use of anticoagulants Gallo Pitts. [address] , [address], [place], [place], [address], [place]. tel:[phone] Referring Provider: Hong Holder, [address], [place], [address] . tel:[phone] [facility], [address], [place], [place], [address] , tel: [phone] Care Management Presence of prosthetic heart valveLong term (current) use of anticoagulants Gallo Pitts. [address] , [address], [place], [address], [place]. tel:[phone] Referring Provider: Hong Holder, [address], [place], [address] . tel:[phone] OFFICE UGHXN-AOP-HVH LUIS [facility], [address], [place], [place], [address] , tel: [phone] [facility] 3 month follow up (chief complaint)C hronic Conditions (chief complaint) Benign neoplasm of parathyroid glandVitamin B12 deficiencyIron deficiency anemia, unspecifiedAcu te pain of left shoulder Gallo Pitts. [address], [address], [place], [place], [address], [place]. tel:[phone] Referring Provider: Hong Holder, [address], [place], [address] . tel:[phone] [facility], [address], [place], [place], [address] , [place] tel: [phone] [facility] Presence of prosthetic heart valveLong term (current) use of anticoagulants Gallo Pitts. [address] , [address], [place], [place], [address], [place]. tel:[phone] Referring Provider: Hong Holder, [address], [place], [address] . tel:[phone] [facility], [address], [place], [place], [address] , [place] tel: [phone] [facility] Chest pain, unspecified Gallo Pitts. [address] , [address], [place], [place], [address], [place]. tel:[phone] OFFICE UHIKT-HYM-HYQ [facility], [address], [place], [place], [address] , [place] tel: [phone] Care Management SOB , DSOUZA and Weight Gain (chief complaint)C hronic Conditions (chief complaint) Body mass index (BMI) 31.0-31.9, adultNonintrac table headache, unspecified chronicity pattern, unspecified headache typeFinger swellingChroni c obstructive airway disease Gallo Pitts. [address] , [address], [place], [place], [address], [place]. tel:[phone] Referring Provider: Hong Holder, [address], [place], [address] . tel:[phone] OFFICE ALSJL-VRZ-DXA [facility], [address], [place], [place], [address] , [place] tel: [phone] [facility] pain (chief complaint) Primary hyperparathyro idismBody mass index (BMI) 32.0-32.9, adultTrochante tessa bursitis of right hipRotator cuff arthropathy of left shoulder Gallo Pitts. [address] , [address], [place], [place], [address], [place]. tel:[phone] Referring Provider: Hong Holder, [address], [place], [address] . tel:[phone] [facility], [address], [place], [place], [address] , tel: [phone] [facility] Presence of prosthetic heart valveLong term (current) use of anticoagulants Gallo Pitts. [address] , [address], [place], [place], [address], . tel:[phone] Referring Provider: Hong Holder, [address] [facility] [address], [place], [address] . tel:[phone] [facility], [address], [place], [place], [address] , tel: [phone] [facility] Chronic Conditions (chief complaint)h eadache (chief complaint)r t thumb frx (chief complaint) Paroxysmal atrial fibrillationCh ronic diastolic (congestive) heart failureHyperte nsive heart disease with heart failureHyperli pidemia, unspecifiedArt eriosclerosis of habematolel arteries of extremityMajor depressive disorder, single episode, in partial remissionGastr o-esophageal reflux disease without esophagitisTyp e 2 diabetes mellitus with diabetic polyneuropathy Atherosclerosi s of aortaBody mass index (BMI) 32.0-32.9, adultDysphagia , unspecifiedTen niko headacheOther nonthrombocyto penic purpuraClosed nondisplaced fracture of distal phalanx of right thumb with routine healing, subsequent encounter Gallo Pitts. [address] [facility], [address], [place], [place], [address], . tel:[phone] Referring Provider: Hong Holder, [address] [facility] [address], [place], [address] . tel:[phone] [facility], [address], [place], [place], [address] , tel: [phone] [facility] Presence of prosthetic heart valveLong term (current) use of anticoagulants Gallo Pitts. [address] [facility], [address], [place], [address], [place]. tel:[phone] Referring Provider: Hong Holder, [address] [facility] [address], [place], [address] . tel:[phone] [facility], [address], [place], [place], [address] , tel: [phone] [facility] Sprain of right thumb, unspecified site of finger, initial encounterPrese nce of prosthetic heart valveLong term (current) use of anticoagulants Gallo Pitts. [address] , [address], [place], [place], [address], . tel:[phone] Referring Provider: Hong Holder, [address], [place], [address] . tel:[phone] [facility], [address], [place], [place], [address] , [place] tel: [phone] [facility] Encounter for exam of blood pressure w/o abnormal findingsPresen ce of prosthetic heart valveLong term (current) use of anticoagulants Gallo Pitts. [address] , [address], [place], [place], [address], [place]. tel:[phone] Referring Provider: Hong Holder, [address], [place], [address] . tel:[phone] [facility], [address], [place], [place], [address] , [place] tel: [phone] [facility] Chronic obstructive airway disease Gallo Pitts. [address] , [address], [place], [address], [place]. tel:[phone] Referring Provider: Hong Holder, [address], [place], [address] . tel:[phone] [address], [address], [place], [place], [address] , [place] tel: [phone] [facility] Lung diseaseHyperte nsive heart disease with heart failureDysphag ia, unspecifiedRig ht foot pain 9 Gallo Pitts. [address], [address], [place], [address], [place]. tel:[phone] Referring Provider: Hong Holder, [address], [place], [address] . tel:[phone] [address], [address], [place], [place], [address] , tel: [phone] [facility] Abnormal PFT 9 Gallo Pitts. [address] [facility], [address], [place], [place], [address], [place]. tel:[phone] [address], [address], [place], [place], [address] , tel: [phone] [facility] Presence of prosthetic heart valveLong term (current) use of anticoagulants Gallo Pitts. [address] [facility], [address], [place], [place], [address], [place]. tel:[phone] Referring Provider: Hong Holder, [address] [facility] [address], [place], [address] . tel:[phone] [address], [address], [place], [place], [address] , tel: [phone] [facility] Paroxysmal atrial fibrillationAg e-related osteoporosis without current pathological fractureMorbid (severe) obesity due to excess caloriesChroni c diastolic (congestive) heart failureHyperte nsive heart disease with heart failureHyperli pidemia, unspecifiedTyp e 2 diabetes mellitus with diabetic peripheral angiopathy without gangreneMajor depressive disorder, single episode, in partial remissionArter iosclerosis of habematolel arteries of extremityGastr o-esophageal reflux disease without esophagitisTyp e 2 diabetes mellitus with diabetic polyneuropathy Atherosclerosi s of aortaPresence of prosthetic heart valve Gallo Pitts. [address] [facility], [address], [place], [place], [address], . tel:[phone] [address], [address], [place], [place], [address] , tel: [phone] [facility] SOB (shortness of breath) on exertion Gallo Pitts. [address] , [address], [place], [place], [address], [place]. tel:[phone] [facility], [address], [place], [place], [address] , tel: [phone] [facility] Presence of prosthetic heart valveLong term (current) use of anticoagulants 9 Gallo Pitts. [address] , [address], [place], [place], [address], [place]. tel:[phone] Referring Provider: Hong Holder, [address] [facility] [address], [place], [address] . tel:[phone] [facility], [address], [place], [place], [address] , tel: [phone] [facility] Acute pain of left shoulder 9 Gallo Pitts. [address] , [address], [place], [address], [place]. tel:[phone] [employer], [address], [place], [place], [address] , [place] tel: [phone] [facility] Acute pain of left shoulderFall, subsequent encounterCoccy dynia 9 Gallo Pitts. [address] , [address], [place], [place], [address], [place]. tel:[phone] Referring Provider: Hong Holder, [address] [facility] [address], [place], [address] . tel:[phone] [facility], [address], [place], [place], [address] , [place] tel: [phone] [facility] Obstructive sleep apneaShortness of breath 8 Gallo Pitts. [address] , [address], [place], [address], [place]. tel:[phone] Referring Provider: Hong Holder, [address] [facility] [address], [place], [address] . tel:[phone] [facility], [address], [place], [place], [address] , tel: [phone] [facility] Presence of prosthetic heart valveLong term (current) use of anticoagulants 8 Gallo Pitts. [address], [address], [place], [address], [place]. tel:[phone] Referring Provider: Hong Holder, [address] [facility] [address], [place], [address] . tel:[phone] [facility], [address], [place], [place], [address] , tel: [phone] [facility] Paroxysmal atrial fibrillationAg e-related osteoporosis without current pathological fractureBenign neoplasm of parathyroid gland Gallo Pitts. [address] [place] , [address], [place], [address], . tel:[phone] Referring Provider: Hong Holder, [address] [facility] [address], [place], [address] . tel:[phone] [facility], [address], [place], [place], [address] , tel: [phone] [facility] Presence of prosthetic heart valveLong term (current) use of anticoagulants Gallo Pitts. [address] [facility], [address], [place], [address], [place]. tel:[phone] Referring Provider: Hong Holder, [address], [place], [address] . tel:[phone] [facility], [address], [place], [place], [address] , tel: [phone] [facility] Anemia, unspecifiedPre sence of prosthetic heart valveLong term (current) use of anticoagulants Diverticulitis 8 Gallo Pitts. [address] [facility], [address], [place], [address], [place]. tel:[phone] Referring Provider: Hong Holder, [address], [place], [address] . tel:[phone] [facility], [address], [place], [place], [address] , [place] tel: [phone] [facility] Lower abdominal painDiarrhea, unspecified type 8 Gallo Pitts. [address], [address], [place], [place], [address], [place]. tel:[phone] [facility], [address], [place], [place], [address] , [place] tel: [phone] [facility] Anemia, unspecifiedDiv erticulitis 8 Gallo Pitts. [address], [address], [place], [place], [address], [place]. tel:[phone] [facility], [address], [place], [place], [address] , [place] tel: [phone] [facility] Diverticulitis 8 Gallo Pitts. [address] [facility] [address], [address], [place], [place], [address], [place]. tel:[phone] Referring Provider: Hong Holder, [address] [facility] [address], [place], [address] . tel:[phone] [facility], [address], [place], [place], [address] , [place] tel: [phone] [facility] Wedge compression fracture of unsp thor vertebra, sequelaDiverti culitis 8 Gallo Pitts. [address] [facility] [address], [address], [place], [place], [address], [place]. tel:[phone] Referring Provider: Hong Holder, [address] [facility] [address], [place], [address] . tel:[phone] [facility], [address], [place], [place], [address] , [place] tel: [phone] [facility] Chronic diastolic (congestive) heart failureUnspeci fied atrial flutterMorbid (severe) obesity due to excess caloriesWedge compression fracture of unsp thor vertebra, sequela Gallo Pitts. [address] , [address], [place], [address], [place]. tel:[phone] Referring Provider: Hong Holder, [address] [facility] [address], [place], [address] . tel:[phone] [facility], [address], [place], [place], [address] , [place] tel: [phone] [facility] Presence of prosthetic heart valveLong term (current) use of anticoagulants Gallo Pitts. [address] , [address], [place], [address], [place]. tel:[phone] Referring Provider: Hong Holder, [address] [facility] [address], [place], [address] . tel:[phone] [facility], [address], [place], [place], [address] , [place] tel: [phone] [facility] Vitamin B12 deficiencyPres ence of prosthetic heart valveLong term (current) use of anticoagulants Gallo Pitts. [address] , [address], [place], [address], [place]. tel:[phone] Referring Provider: Hong Holder, [address] [facility] [address], [place], [address] . tel:[phone] [facility], [address], [place], [place], [address] , [place] tel: [phone] [facility] No Information Gallo Pitts. [address] , [address], [place], [address], [place]. tel:[phone] [facility], [address], [place], [place], [address] , [place] tel: [phone] [facility] Vitamin B12 deficiency Aug-0 Gallo Pitts. [address], [address], [address], . tel:[phone] Referring Provider: Hong Holder, [address], [place], [address] . tel:[phone] [facility], [address], [place], [place], [address] , tel: [phone] [facility] Presence of prosthetic heart valveLong term (current) use of anticoagulants Anemia, unspecified July- Gallo Pitts. [address], [address], [place], [address], . tel:[phone] Referring Provider: Hong Holder, [address], [place], [address] . tel:[phone] [facility], [address], [place], [place], [address] , tel: [phone] [facility] Hypertensive heart disease with heart failureAnemia, unspecified Gallo Pitts. [address], [address], [place], [address], [place]. tel:[phone] Referring Provider: Hong Holder, [address], [place], [address] . tel:[phone] [facility], [address], [place], [place], [address] , tel: [phone] [facility] Presence of prosthetic heart valveLong term (current) use of anticoagulants Gallo Pitts. [address], [address], [place], [address], [place]. tel:[phone] Referring Provider: Hong Holder, [address], [place], [address] . tel:[phone] [facility], [address], [place], [place], [address] , tel: [phone] [facility] Presence of prosthetic heart valveLong term (current) use of anticoagulants 8 Gallo Pitts. [address] [facility], [address], [place], [place], [address], [place]. tel:[phone] Referring Provider: Hong Holder, [address] [facility] [address], [place], [address] . tel:[phone] [facility], [address], [place], [place], [address] , tel: [phone] [facility] Lumbar spondylosisSho rtness of breath 8 Gallo Pitts. [address] , [address], [place], [place], [address], [place]. [phone] Referring Provider: Hong Holder, [address], [place], [address] . tel:[phone] [facility], [address], [place], [place], [address] , [place] tel: [phone] [facility] Major depressive disorder, single episode, in partial remissionPrima ry hyperparathyro idismGastro-es ophageal reflux disease without esophagitisCer ebral atherosclerosi sHyperlipidemi a, unspecifiedArt eriosclerosis of habematolel arteries of extremityType 2 diabetes mellitus with diabetic peripheral angiopathy without gangreneScreen ing for osteoporosisPa roxysmal atrial fibrillationLo ng term (current) use of anticoagulants Presence of prosthetic heart valvePost-halima pausal 0 8 Gallo Pitts. [address], [address], [place], [place], [address], [place]. [phone] Referring Provider: Hong Holder, [address], [place], [address] . tel:[phone] [facility], [address], [place], [place], [address] , tel: [phone] [facility] Presence of prosthetic heart valveLong term (current) use of anticoagulants Jun-2 8 Galol Pitts. [address] [facility] [address], [address], [place], [address], . tel:[phone] Referring Provider: oHng Holder, [address] [facility] [address], [place], [address] . tel:[phone] [facility], [address], [place], [place], [address] , tel: [phone] [facility] Hypertensive heart disease with heart failure Jun-2 8 Gallo Pitts. [address] [facility] [address], [address], [place], [address], [place]. tel:[phone] Referring Provider: Hong Holder, [address] [facility] [address], [place], [address] . 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 [address] [facility], [address], [place], [address], [place]. tel:[phone] Referring Provider: Hong Holder, [address] [facility] [address], [place], [address] . tel:[phone] [facility], [address], [place], [place], [address] , tel: [phone] [facility] Type 2 diabetes mellitus with diabetic polyneuropathy Body mass index (BMI) 40.0-44.9, adult Mar-0 2- 8 Micha Jaylyn. [address], [address]. tel:[phone] Referring Provider: Hong Holder, [address], [place], [address] . tel:[phone] [facility], [address], [place], [place], [address] , [place] tel: [phone] [facility] Encntr screen mammogram for malignant neoplasm of breast 8 Gallo Pitts. [address], [address], [place], [place], [address], [place]. tel:[phone] [facility], [address], [place], [place], [address] , tel: [phone] [facility] Low back pain 8 Gallo Pitts. [address], [address], [place], [place], [address], [place]. tel:[phone] [facility], [address], [place], [place], [address] , tel: [phone] [facility] Presence of prosthetic heart valveLong term (current) use of anticoagulants Gallo Pitts. [address] , [address], [place], [place], [address], [place]. tel:[phone] Referring Provider: Hong Holder, [address], [place], [address] . tel:[phone] [facility], [address], [place], [place], [address] , tel: [phone] [facility] residential (current) use of anticoagulants Presence of prosthetic heart valve 8 Gallo Pitts. [address] , [address], [place], [place], [address], [place]. tel:[phone] Referring Provider: Hong Holder, [address] [facility] [address], [place], [address] . tel:[phone] [facility], [address], [place], [place], [address] , [place] tel: [phone] [facility] Osteoporosis, unspecified osteoporosis type, unspecified pathological fracture presence 8 Demetrius Schilling. [address], [address], [place], [place], [address]. tel:[phone] [facility], [address], [place], [place], [address] , tel: [phone] [facility] Low back painAtheroscle rosis of aortaPolymyalg ia rheumaticaHear t failure, unspecifiedTyp e 2 diabetes mellitus with diabetic polyneuropathy Morbid (severe) obesity due to excess calories Gallo Pitts. [address] [place] , [address], [place], [place], [address], [place]. tel:[phone] Referring Provider: Hong Holder, [address] [facility] [address], [place], [address] . tel:[phone] [facility], [address], [place], [place], [address] , tel: [phone] [facility] residential (current) use of anticoagulants Presence of prosthetic heart valve Gallo Pitts. [address] [facility], [address], [place], [place], [address], [place]. tel:[phone] Referring Provider: Hong Holder, [address] [address], [place], [address] . tel:[phone] [facility] [address], [place], [place], [address] , tel: [phone] [facility] Presence of prosthetic heart valveLong term (current) use of anticoagulants Gallo Pitts. [address] [facility] [address], [address], [place], [place], [address], [place]. tel:[phone] Referring Provider: Hong Holder, [address] [facility] [address], [place], [address] . tel:[phone] [facility] [address], [place], [place], [address] , tel: [phone] [facility] Strain of lumbar region, subsequent encounter Gallo Pitts. [address] [place] [address], [address], [place], [address], . tel:[phone] Referring Provider: Hong Holder, [address], [place], [address] . tel:[phone] [facility] [address], [place], [place], [address] , tel: [phone] [facility] residential (current) use of anticoagulants Presence of prosthetic heart valve Gallo Pitts. [address], [address], [place], [address], [place]. tel:[phone] Referring Provider: Hong Holder, [address], [place], [address] . tel:[phone] 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 [address], [address], [place], [address], [place]. tel:[phone] Referring Provider: Hong Holder, [address], [place], [address] . tel:[phone] [facility] [address], [place], [place], [address] , tel: [phone] [facility] Polymyalgia rheumaticaHear t failure, unspecifiedArt eriosclerosis of habematolel arteries of extremityType 2 diabetes mellitus with diabetic peripheral angiopathy without gangreneAthero sclerosis of aortaMorbid (severe) obesity due to excess caloriesEncntr screen mammogram for malignant neoplasm of breastLong term (current) use of anticoagulants Presence of prosthetic heart valveHyperlipi demia, unspecifiedCer ebral atherosclerosi sGastro-esopha geal reflux disease without esophagitis Gallo Pitts. [address] [place] [address], [address], [place], [address], [place]. tel:[phone] Referring Provider: Hong Holder [address], [place], [address] . tel:[phone] [facility], [address], [place], [place], [address] , tel: [phone] [facility] Knee pain, unspecified chronicity, unspecified laterality 7 Gallo Pitts. [address], [address], [place], [address], [place]. tel:[phone] [facility], [address], [place], [place], [address] , [place] tel: [phone] [facility] residential (current) use of anticoagulants Presence of prosthetic heart valve Gallo Pitts. [address], [address], [place], [address], [place]. tel:[phone] Referring Provider: Hong Holder, [address], [place], [address] . tel:[phone] [facility], [address], [place], [place], [address] , [place] tel: [phone] [facility] Iron deficiency anemia, unspecified iron deficiency anemia type Gallo Pitts. [address], [address], [place], [address], [place]. tel:[phone] [facility], [address], [place], [place], [address] , [place] tel: [phone] [facility] residential (current) use of anticoagulants Presence of prosthetic heart valve Gallo Pitts. [address], [address], [place], [address], [place]. tel:[phone] Referring Provider: Hong Holder, [address], [place], [address] . tel:[phone] [facility], [address], [place], [place], [address] , [place] tel: [phone] [facility] Iron deficiency anemia, unspecified iron deficiency anemia type Aug- Gallo Pitts. [address], [address], [place], [place], [address], [place]. tel:[phone] [address], [address], [place], [place], [address] , tel: [phone] [facility] Anemia, unspecified Gallo Pitts. [address], [address], [place], [place], [address], [place]. tel:[phone] Referring Provider: Hong Holder, [address], [place], [address] . tel:[phone] [address], [address], [place], [place], [address] , [place] tel: [phone] [facility] Presence of prosthetic heart valveLong term current use of anticoagulant therapyAnemia, unspecified Gallo Pitts. [address], [address], [place], [place], [address], [place]. tel:[phone] [address], [address], [place], [place], [address] , tel: [phone] [facility] Type 2 diabetes mellitus with polyneuropathy Demetrius Schilling. [address], [address], [place], [place], [address]. tel:[phone] [address], [address], [place], [place], [address] , [place] tel: [phone] [facility] Shortness of breathPolymyal carmen rheumaticaPres ence of prosthetic heart valvePrimary hyperparathyro idismMajor depressive disorder, single episode, in partial remission Gallo Pitts. [address], [address], [place], [place], [address], [place]. tel:[phone] Referring Provider: Hong Holder, [address], [place], [address] . tel:[phone] [facility], [address], [place], [place], [address] , tel: [phone] [facility] Dizziness and giddinessPolym yalgia rheumatica Gallo Pitts. [address], [address], [place], [address], . tel:[phone] Referring Provider: Hong Holder, [address], [place], [address] . tel:[phone] [facility], [address], [place], [place], [address] , tel: [phone] [facility] MyalgiaBilater al shoulder pain, unspecified chronicity Gallo Pitts. [address] , [address], [place], [address], . tel:[phone] Referring Provider: Hong Holder, [address], [place], [address] . tel:[phone] [facility], [address], [place], [place], [address] , tel: [phone] [facility] H/O mechanical aortic valve replacementLon g term current use of anticoagulant therapy Gallo Pitts. [address] , [address], [place], [address], [place]. tel:[phone] Referring Provider: Hong Hloder, [address], [place], [address] . tel:[phone] [facility], [address], [place], [place], [address] , tel: [phone] [facility] H/O mechanical aortic valve replacementLon g term current use of anticoagulant therapy Gallo Pitts. [address], [address], [place], [address], [place]. tel:[phone] Referring Provider: Hong Holder, [address], [place], [address] . tel:[phone] [facility] [address], [place], [place], [address] , tel: [phone] [facility] Bilateral arm painBilateral shoulder pain, unspecified chronicity Jun-2 4-201 7 Gallo Pitts. [address], [address], [place], [address], [place]. [phone] Referring Provider: Hong Holder, [address], [place], [address] . tel:[phone] [facility] [address], [place], [place], [address] , tel: [phone] [facility] Bilateral leg cramps Jun-2 0- 7 Gallo Pitts. [address], [address], [place], [address], [place]. tel:[phone] Referring Provider: Hong Holder, [address], [place], [address] . tel:[phone] [facility] [address], [place], [place], [address] , tel: [phone] [facility] H/O mechanical aortic valve replacementLon g term current use of anticoagulant therapy May-3 0-201 7 Gallo Pitts. [address], [address], [place], [address], [place]. [phone] Referring Provider: Hong Holder, [address], [place], [address] . tel:[phone] [facility] [address], [place], [place], [address] , tel: [phone] [facility] H/O mechanical aortic valve replacementLon g term current use of anticoagulant therapy May-2 3-201 7 Gallo Pitts. [address], [address], [place], [place], [address], [place]. [phone] Referring Provider: Hong Holder, [address], [place], [address] . tel:[phone] [facility], [address], [place], [place], [address] , tel: [phone] [facility] H/O mechanical aortic valve replacementLon g term current use of anticoagulant therapy 7 Gallo Pitts. [address], [address], [place], [place], [address], [place]. tel:[phone] Referring Provider: Hong Holder, [address], [place], [address] . tel:[phone] [facility], [address], [place], [place], [address] , [place] tel: [phone] [facility] Neck painH/O mechanical aortic valve replacement 7 Gallo Pitts. [address], [address], [place], [place], [address], [place]. tel:[phone] [facility], [address], [place], [place], [address] , [place] tel: [phone] [facility] Acute non-recurrent sinusitis, unspecified location 7 Gallo Pitts. [address], [address], [place], [place], [address], [place]. tel:[phone] Referring Provider: Hong Holder, [address], [place], [address] . tel:[phone] [facility], [address], [place], [place], [address] , [place] tel: [phone] [facility] H/O mechanical aortic valve replacementLon g term current use of anticoagulant therapy 0 7 Gallo Pitts. [address], [address], [place], [address], [place]. [phone] Referring Provider: Hong Holder, [address], [place], [address] . tel:[phone] [address], [address], [place], [place], [address] , tel: [phone] [facility] Type 2 diabetes mellitus with polyneuropathy Hammer toe of left footAcute bilateral low back pain without sciatica 7 Gallo Pitts. [address], [address], [place], [place], [address], [place]. tel:[phone] Referring Provider: Hong Holder, [address], [place], [address] . tel:[phone] [address], [address], [place], [place], [address] , tel: [phone] [facility] Obstructive sleep apnea 0 6 Gallo Pitts. [address] [place] [address], [address], [place], [place], [address], [place]. tel:[phone] [address], [address], [place], [place], [address] , tel: [phone] [facility] Major depressive disorder, single episode, in partial remissionH/O mechanical aortic valve replacementTyp e 2 diabetes mellitus with polyneuropathy 6 Gallo Pitts. [address] [place] [address], [address], [place], [place], [address], [place]. tel:[phone] Referring Provider: Hong Holder, [address], [place], [address] . tel:[phone] [address], [address], [place], [place], [address] , tel: [phone] [facility] Complicated griefDisappear ance and of family memberMajor depressive disorder, single episode, in partial remission 2-201 6 Gallo Pitts. [address] [place] [address], [address], [place], [place], [address], [place]. tel:[phone] [employer] [facility] [employer] [facility], [address], [place], [place], [address] , [place] tel: [phone] [facility] No Information 6 Gallo Pitts. [address] [facility], [address], [place], [place], [address], [place]. tel:[phone] Referring Provider: Maria T Ramon, [address], [place], [address] . tel:[phone] [employer] [employer] [facility], [address], [place], [place], [address] , [place] tel: [phone] [facility] Complicated griefDisappear ance and of family memberNeck pain 6 Gallo Pitts. [address] [place] [address], [address], [place], [place], [address], [place]. tel:[phone] Referring Provider: Hong Holder, [address] [facility] [address], [place], [address] . tel:[phone] [address], [address], [place], [place], [address] , [place] tel: [phone] [facility] Atherosclerosi s of aorta 6 Gallo Pitts. [address] [place] [address], [address], [place], [place], [address], [place]. tel:[phone] Referring Provider: Hong Holder, [address] [place] [address], [place], [address] . tel:[phone] [address], [address], [place], [place], [address] , [place] tel: [phone] [facility] Tear of right rotator cuff, unspecified tear extent 6 Gallo Pitts. [address] [place] [address], [address], [place], [place], [address], [place]. tel:[phone] [address], [address], [place], [place], [address] , tel: [phone] [facility] Type 2 diabetes mellitus with polyneuropathy Chronic right shoulder pain 3 6 Gallo Pitts. [address] , [address], [place], [place], [address], . tel:[phone] Referring Provider: Hong Holder, [address], [place], [address] . tel:[phone] [facility], [address], [place], [place], [address] , tel: [phone] [facility] H/O mechanical aortic valve replacementLon g term current use of anticoagulant therapy 0 6 Gallo Pitts. [address], [address], [place], [address], . tel:[phone] Referring Provider: Hong Hodler, [address], [place], [address] . tel:[phone] [facility], [address], [place], [place], [address] , tel: [phone] [facility] H/O mechanical aortic valve replacementLon g term current use of anticoagulant therapy 6 Gallo Pitts. [address] , [address], [place], [place], [address], . tel:[phone] Referring Provider: Hong Holder, [address], [place], [address] . tel:[phone] [facility], [address], [place], [place], [address] , tel: [phone] [facility] Dyspnea on effort 6 Gallo Pitts. [address], [address], [place], [address], . tel:[phone] [facility], [address], [place], [place], [address] , tel: [phone] [facility] H/O mechanical aortic valve replacementLon g term current use of anticoagulant therapy 3 6 Gallo Pitts. [address], [address], [place], [place], [address], [place]. [phone] Referring Provider: Hong Holder, [address], [place], [address] . tel:[phone] [facility], [address], [place], [place], [address] , [place] tel: [phone] [facility] Neck painBilateral shoulder pain, unspecified chronicityPain in left shoulder 6 Gallo Pitts. [address], [address], [place], [place], [address], [place]. tel:[phone] [facility], [address], [place], [place], [address] , [place] tel: [phone] [facility] H/O mechanical aortic valve replacementLon g term current use of anticoagulant therapy 6 Gallo Pitts. [address], [address], [address], [place]. tel:[phone] Referring Provider: Hong Holder, [address], [place], [address] . tel:[phone] [facility], [address], [place], [place], [address] , [place] tel: [phone] [facility] H/O mechanical aortic valve replacementLon g term current use of anticoagulant therapy 6 Gallo Pitts. [address], [address], [place]. tel:[phone] Referring Provider: Hong Holder, [address], [place], [address] . tel:[phone] [facility], [address], [place], [place], [address] , [place] tel: [phone] [facility] H/O mechanical aortic valve replacementLon g term current use of anticoagulant therapy 6 Gallo Pitts. [address], [place], [place], [address], [place]. tel:[phone] Referring Provider: Hong Holder, [address], [place], [address] . tel:[phone] [facility], [address], [place], [place], [address] , tel: [phone] [facility] Encounter for immunizationNe ck painH/O mechanical aortic valve replacementChr onic kidney disease, stage 1 6 Gallo Pitts. [address], [place], [place], [address], [place]. tel:[phone] Referring Provider: Hong Holder, [address], [place], [address] . tel:[phone] [facility], [address], [place], [place], [address] , [place] tel: [phone] [facility] Chest pain, unspecified 6 Gallo Pitts. [address], [place], [place], [address], [place]. tel:[phone] [facility], [address], [place], [place], [address] , tel: [phone] [facility] H/O mechanical aortic valve replacementLon g term current use of anticoagulant therapy 6 Gallo Pitts. [address], [address], [place], [place], [address], [place]. tel:[phone] [facility], [address], [place], [place], [address] , [place] tel: [phone] [facility] Chronic kidney disease, stage 1Type 2 diabetes mellitus with polyneuropathy Nonintractable headache, unspecified chronicity pattern, unspecified headache type 6 Gallo Pitts. [address], [place], [place], [address], [place]. [phone] Referring Provider: Hong Holder, [address], [place], [address] . tel:[phone] [facility], [address], [place], [place], [address] , tel: [phone] [facility] H/O mechanical aortic valve replacement 6 Gallo Pitts. [address], [place], [place], [address], [place]. tel:[phone] Referring Provider: Hong Holder, [address], [place], [address] . tel:[phone] [facility], [address], [place], [place], [address] , tel: [phone] [facility] Morbid obesity, unspecified obesity typeType 2 diabetes mellitus with stage 1 chronic kidney diseaseChronic kidney disease, stage 1Type 2 diabetes mellitus with polyneuropathy H/O mechanical aortic valve replacementMaj or depressive disorder, single episode, in partial remissionGERD without esophagitisPri valentina osteoarthritis involving multiple joints 6 Gallo Pitts. [address], [address], [place]. tel:[phone] Referring Provider: Hong Holder, [address], [place], [address] . tel:[phone] [facility], [address], [place], [place], [address] , tel: [phone] [facility] Aortic valve replaced 6 Gallo Pitts. [address], [address], [place]. tel:[phone] Referring Provider: Hong Holder, [address], [place], [address] . tel:[phone] [facility], [address], [place], [place], [address] , tel: [phone] [facility] Aortic valve replaced 6 Gallo Pitts. [address], [place], [place], [address], [place]. [phone] Referring Provider: Hong Holder, [address], [place], [address] . tel:[phone] Family History Family Member Type Diagnosis Age [...] er Payers Payer name Insurance type Covered alliance party ID Authoriza tion(s) [employer] MB [id number] [employer] MB [id number] [employer] MB [id number] [employer]comPLAN MB [id number] [employer]ker[employer] MB [id number] [facility] MB [id number] [facility] MB [id number] [facility] MB [id number] Social History Type Description Quantity Date Captured [...] 09/08/2019 ordered Referral Referred To: Home Care [id number] Ordered: Referrals: Home Care. Location: [facility]. Evaluation/diagnostic/treatment - Level 3 ordered Referral Referred To: [address]
[facility] [address] [place], [phone] Ordered: MRI brain wo contrast ordered Referral Referred To: Service CPAP equipment Ordered: Referrals: Service CPAP equipment ordered Referral Referred To: Maurice Paredes [address] [facility] [address] [place], [place], [phone] Ordered: Referrals: Cardiology. Maurice Paredes. Evaluation/diagnostic/treatment - Level 3 ordered Referral Referred To: [facility] [address] [place], [phone] Ordered: Modified barium swallow ordered History Of [...] intake. Hospital F/U Patient was seen at [facility] due to irregular heartbeat Patient felt she [...] Follow Up Patient was t reated at [facility] for atrial fibrillation with RVR and was discharged on December. She saw a shop fitter in the hospital. She is having progressive memory problems. This has come to the attention of her shop fitter. She is managing her own affairs. She [...] follow up Here for a [facility] m [facility] follow up. Patient states her shoulders have [...] patient also c/o pain in the right christianity. she denies jaw claudication. 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 Make sure you are [...] vascular claudication symptoms. Related to Arteriosclerosis of habematolel arteries of extremity We will monitor blood [...] your amiodarone and follow up with your shop fitter. Related to Atrial fibrillation, unspecified type I [...] sister would serve as your power of privacy attorney for nam care decisions. You NEED [...] with atorvastatin. Rela mariam to Arteriosclerosis of habematolel arteries of extremity continue atorvastatin. Related t [...]
[2024-04-08 18:30] VITALS: BP 127/76; PULSE 65; RESP 18; TEMP 36.3; O2SAT 95; BMI 27.3
--- NOTE | 2024-04-08 18:30 | ADMGEN ---
This patient, Radha Huynh, was admitted to 2nd Floor Room 204-1. Patient/family oriented to hospital policies and general routines including ID bracelet, bed and alarms, visiting hours, pain management, procedures, bathroom and other care routines, personal items, smoking policy, room service/diet, and visiting hours. Information on how to activate the Rapid Response Team has been discussed. Patient/Family are encouraged to report perceived risks to care and to ask questions if they do not understand what they are told or what they should do.
[2024-04-08 19:00] VITALS: O2SAT 95
[2024-04-08 20:00] VITALS: O2SAT 94
[2024-04-08] MEDS: FAMOTIDINE 20 MG TABLET PO (20:40)
[2024-04-08] MEDS: MELATONIN 5 MG TABLET PO (20:42)
[2024-04-08] MEDS: SIMVASTATIN 10 MG TABLET PO (20:43)
[2024-04-08] MEDS: POTASSIUM CHLORIDE 10 MEQ ER TABLET PO (20:43)
[2024-04-08] MEDS: GABAPENTIN 300 MG CAPSULE PO (20:43)
[2024-04-08 20:53] LABS: Glucose Point of Care 104 mg/dl (65-105)
[2024-04-08 23:05] VITALS: BP 148/68; PULSE 68; RESP 20; TEMP 36.6; O2SAT 97
[2024-04-09 05:30] VITALS: O2SAT 97
[2024-04-09 05:41] LABS: INR 1.7; Prothrombin Time 17.5 Seconds (9.50-12.1)
[2024-04-09 08:00] VITALS: BP 140/72; PULSE 70; RESP 18; TEMP 36.6; O2SAT 94
--- NOTE | 2024-04-09 08:10 | P.HP_ITS ---
H&P: HPI History of Present Illness Date/Time: 04/09/24 08:10 Chief Complaint: Rehabilitation Narrative: Patient is a 78-year-old female who was admitted to [facility] bed for continued rehabilitation after her recent hospitalization had [facility] for atrial fibrillation with RVR, pneumonia, acute on chronic heart failure exacerbation, AC induced hypercoagulability with hematoma of abdominal wall. Patient also has a past medical history of hypertension mechanical aortic valve, COPD, CKD, diabtes, and hyperlipidemia initial plan was for patient to go to an acute rehab facility however patient did test positive for COVID on day of discharge which that current facility was not accepting COVID positive patients patient was then transferred over to [facility] bed for continued r ehabilitation. patient at time of assessment denied any chest pain, shortness a breath, nausea, vomiting no active signs of bleeding dizziness or visual changes. Review of Systems Review of Systems: All systems reviewed & are unremarkable except as noted in HPI and below PMFSH Past Medical History Medical History Irritable bowel syndrome Gallbladder disorder Arthritis Vitamin B12 deficiency Atrial fibrillation with slow ventricular response Chronic kidney disease, stage 3b Chronic kidney disease Baseline creatinine is around 1.50. Restless leg syndrome Congestive heart failure Echocardiogram in March 2021 showed normal FVC size, moderate LVH, borderline LV systolic function with an EF of 50 to 55%, and grade 1 diastolic dysfunction. Depression with anxiety Degenerative joint disease Burst fracture of thoracic vertebra Kidney stone Obstructive sleep apnea on CPAP Diverticulitis Hypertension Type 2 diabetes mellitus Chronic obstructive pulmonary disease Patient had a pulmonary function test on 02/24/2020 which was suggestive of COPD. Chronic anticoagulation Paroxysmal atrial fibrillation On amiodarone therapy Depression Hyperlipidemia Herniated disc Surgical History Surgical History History of right knee surgery Ligamentous repair. History of bilateral cataract extraction History of mechanical aortic valve replacement (2003) [facility] valve. History of ankle surgery ORIF left ankle fracture. History of hysterectomy Family History Family History Mother Family history of cardiovascular disease Family history of arthritis CHF (congestive heart failure) Depression Family history of coronary artery disease Father Family history of cardiovascular disease Diabetes mellitus Family history of arthritis Acute myocardial infarction Family history of diabetes mellitus in first degree relative Sibling , cancer Family history of arthritis Malignant neoplasm of prostate Sibling Family history of arthritis Malignant neoplasm of prostate Social History Social History Social History: The patient is and lives in her own home with her small dog. 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 No alcohol or illicit drug use. Surrogate decision maker: Shannon Vigil, sister. Code status: Full code. Smoking packs per day: 1 Smoking cigarettes per day: 20.0 Years smoked: 5 Smoking pack-years: 5.00 Smoking status: Former smoker Tobacco type: cigarettes Second hand tobacco smoke exposure: No Alcohol intake: never Substance use: never Substance use type: does not use Do You Feel Safe in your Home?: Yes Lack of Transportation: No Lack of Food: Never True Current Housing: I Have Housing Concerned About Future Housing: No Difficulty Paying Gas/Electric Bills: No Difficulty Paying for Meds: No Currently Unemployed: No Education: High School Diploma/GED Difficulty w/ Childcare or Family Care: No Living arrangements: alone Occupation/Education: retired Additional gender identity comments: [employer] work Spiritual care concerns: No Agree to blood products: Yes Meds Home Medications and Allergies Home Medications ?Medication ?Instructions ?Recorded ?Confirmed ?Type gabapentin 300 mg capsule 300 mg PO Q12H 01/09/19 04/08/24 History venlafaxine 150 mg 150 mg PO DAILY 01/09/19 04/08/24 History capsule,extended release 24 hr furosemide 20 mg tablet 20 mg PO DAILY 03/18/22 04/08/24 History potassium chloride 10 mEq 10 meq PO HS 03/18/22 04/08/24 History tablet,extended release cholecalciferol (vitamin D3) 1,000 units PO DAILY 08/23/23 04/08/24 History simvastatin 10 mg PO HS 08/23/23 04/08/24 History cyanocobalamin (vitamin B-12) 1,000 mcg PO DAILY #30 caps 08/26/23 04/08/24 Rx 1,000 mcg capsule alprazolam 0.5 mg tablet 0.25 mg PO HS PRN Anxiety 11/01/23 04/08/24 History hydrocodone 5 mg-acetaminophen 325 1 - 2 tablet PO Q6H PRN Pain 11/01/23 04/08/24 History mg tablet omeprazole 40 mg capsule,delayed 40 mg PO DAILY 11/01/23 04/08/24 History release semaglutide 0.25 mg or 0.5 mg (2 0.5 mg subcut WEEKLY 11/12/23 04/08/24 History mg/3 mL) subcutaneous pen injector (Ozempic) cinacalcet 30 mg tablet 15 mg PO DAILY 12/13/23 04/08/24 History methimazole 5 mg tablet 5 mg PO DAILY 12/13/23 04/08/24 History warfarin 6 mg tablet 6 mg PO DAILY 03/08/24 04/08/24 History dextromethorphan-guaifenesin 30 2 tab PO Q12HR #30 tabs 04/07/24 04/08/24 Rx mg-600 mg tablet extended hr (Mucinex DM) levalbuterol HCl 1.25 mg/3 mL 1.25 mg (3 mL) inhalation Q6HRT 04/07/24 04/08/24 Rx solution for nebulization #30 mL melatonin 5 mg tablet 5 mg PO HS #30 tabs 04/07/24 04/08/24 Rx polyethylene glycol 3350 17 gram 17 g PO QAM #30 ea 04/07/24 04/08/24 Rx oral powder packet (Miralax) Allergies Allergy/AdvReac Type Severity Reaction Status Date / Time adhesive tape Allergy Intermediate Blister Verified 03/07/24 15:30 cortisone Allergy Intermediate Rash Verified 03/07/24 15:30 bacitracin Allergy Mild Rash Verified 03/07/24 15:30 neomycin Allergy Mild Rash Verified 03/07/24 15:30 polymyxin B Allergy Mild Rash Verified 03/07/24 15:30 Vital Signs Vital Signs - 24 hr 04/08/24 18:30 04/08/24 19:00 04/08/24 20:00 Temperature 97.3 F L Pulse Rate 65 Respiratory Rate 18 Blood Pressure 127/76 Pulse Oximetry 95 95 94 Oxygen Delivery Nasal Cannula Nasal Cannula Nasal Cannula Oxygen Flow Rate 2 2 2 04/08/24 23:05 Temperature 97.9 F Pulse Rate 68 Respiratory Rate 20 Blood Pressure 148/68 H Pulse Oximetry 97 Oxygen Delivery Nasal Cannula Oxygen Flow Rate 2 Exam Narrative: * GENERAL: Alert and oriented x 3. Frail appearing female No acute distress. * EYES: PERRLA. * HEENT: Moist mucous membranes. * LUNGS: Clear to auscultation bilaterally. No accessory muscle use. * CARDIOVASCULAR: Regular rate and rhythm. S1-S2 * ABDOMEN: Soft, non tenderness and non-distended. No palpable masses. * EXTREMITIES: No edema. Non-tender * SKIN: No rashes or lesions. Skin warm, dry. * NEUROLOGIC: No focal neurological deficits. CN II-XII grossly intact * PSYCHIATRIC: Appropriate mood and affect. Good judgement and insight. H&P: Results Labs Labs: Short CBC 03/07/24 Range/Units 18:12 WBC 6.8 (4.5-10.0) K/mm3 Hgb 14.2 (12.0-15.0) g/dL Hct 44.1 (37.0-47.0) % Plt Count 234 (150-375) k/mm3 BMP 03/07/24 18:12 Sodium 137 Potassium 4.0 Chloride 105 Carbon Dioxide 31 H BUN 23 H Creatinine 1.70 H Glucose 100 Calcium 11.2 H Cardiac Enzymes 03/07/24 03/07/24 03/07/24 Range/Units 18:12 19:24 21:47 Troponin I 0.055 H* Cancelled 0.048 H* (0.000-0.034) ng/mL 03/08/24 Range/Units 00:47 Troponin I 0.051 H* (0.000-0.034) ng/mL Liver Function 03/07/24 Range/Units 18:12 Total Bilirubin 0.8 (0.2-1.3) mg/dL AST 33 (14-36) U/L ALT 16 (6-35) U/L Alkaline Phosphatase 65 (38-126) U/L Albumin 4.2 (3.5-5.1) g/dL Assessment and Plan Assessment and plan (1) Congestive heart failure: Code(s): I50.9 - Heart failure, unspecified Status: Acute Assessment and Plan: * Resumed PO lasix * monitor for fluid overload * does not appear in exacerbation (2) HTN (hypertension): Qualifiers: Hypertension type: primary hypertension Qualified Code(s): I10 - Essential (primary) hypertension Code(s): I10 - Essential (primary) hypertension Status: Acute Assessment and Plan: * Appears well controlled. * resume sotalol * BP per unit protocol (3) Paroxysmal A-fib: Code(s): I48.0 - Paroxysmal atrial fibrillation Status: Acute Assessment and Plan: * Rate currently well controlled. * Continue Warfarin and sotalol 40 mg daily. (4) Hyperlipidemia: Qualifiers: Hyperlipidemia type: mixed hyperlipidemia Qualified Code(s): E78.2 - Mixed hyperlipidemia Code(s): E78.5 - Hyperlipidemia, unspecified Status: Acute Assessment and Plan: * Resume statin. (5) Physical deconditioning: Code(s): R53.81 - Other malaise Status: Acute Assessment and Plan: patient was admitted for continued rehabilitation with physical and occupa tional therapy after extended hospitalization * PT/OT * out of bed with all meals * encourage range of motion activity while at rest (6) Mechanical heart valve present: Code(s): Z95.2 - Presence of prosthetic heart valve Status: Acute Assessment and Plan: during patient's hospitalization at [place] she did hyper coagulability while on her Coumadin as well a noted hematoma to the abdominal wall no intervention was done however they did hold her Coumadin * current INR is 1.7 with her history of mechanical valve she will need to be INR of 2.0-3.0 * resumed her 6 mg of Coumadin * INR daily and adjust Coumadin as indicated (7) Atrial fibrillation: Code(s): I48.91 - Unspecified atrial fibrillation Status: Acute Assessment and Plan: * resume sotalol and Coumadin (8) 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 HS * sliding scale insulin * Holding weekly Ozempic * Diabetic diet * Optimize Braxton inhibitors and statins. * Watch for hypoglycemia/hypoglycemic protocol ordered (10) Chronic kidney disease: Code(s): N18.9 - Chronic kidney disease, unspecified Status: Acute Assessment and Plan: * Avoid nephrotoxic drugs. * Monitor antihypertensive drug therapy. * Avoid NSAIDs. * Routine CMP monitoring GFR. * Monitor electrolytes especially potassium. (11) COPD (chronic obstructive pulmonary disease): Code(s): J44.9 - Chronic obstructive pulmonary disease, unspecified Status: Chronic Assessment and Plan: * Oxygen PRN * DuoNebs p.r.n. (12) COVID: Code(s): U07.1 - COVID-19 Status: Acute Assessment and Plan: * antipyretic * oxygen p.r.n. * antiemetics * monitor for any worsening respiratory status asymptomatic at this time Plan Code status: Full code per patient DVT prophylaxis: Coumadin Stress ulcer prophylaxis: Pepcid PT/OT notes: swing bed Disposition: patient continues admission to [facility] for continued rehabilitation patient lives alone at home but plan is to return once there is a safe discharge and she can care for self Quality VTE Prophylaxis VTE prophylaxis: pharmacologic ordered -Patient's previous records reviewed on admission -ER notes reviewed in detail on admission -discussed all findings and current treatment plan with patient/Family/POA -Consultations reviewed for recommendations -Patient's disposition for safe discharge discussed with corrections caseworker Dictation performed by [employer] direct speech recognition software, therefore flatbed company driver variants and typographical errors may occur. Hospitalist MIPS Advance Care Plan I have confirmed that the patient's Advanced Care Plan is present, code status is documented, or surrogate decision maker is listed in patient medical record.: Yes Medication Reconciliation I have utilized all available resources to obtain, update and review the patients current medications (includes all prescriptions, OTC, herbals, cannabis, and nutritional supplements).: Yes The patient is not eligible for med reconciliation; the patient is in a emergent medical situation where delaying treatment would jeopardize the patients health.: No
[2024-04-09] MEDS: VENLAFAXINE HCL XR 75 MG CAP.ER.24H 150 MG PO (09:18)
[2024-04-09] MEDS: CYANOCOBALAMIN 1,000 MCG TABLET 1000 MCG PO (09:19)
[2024-04-09] MEDS: GABAPENTIN 300 MG CAPSULE PO ×2 (09:19→20:06)
[2024-04-09] MEDS: FUROSEMIDE 20 MG TABLET PO (09:19)
[2024-04-09] MEDS: CHOLECALCIFEROL 1,000 UNITS TABLET 1000 UNITS PO (09:19)
[2024-04-09] MEDS: FAMOTIDINE 20 MG TABLET PO ×2 (09:19→20:06)
[2024-04-09] MEDS: polyethylene glycoL 3350 17 GM POWD.PACK PO (09:21)
[2024-04-09] MEDS: methiMAzole 5 MG TAB PO (10:54)
[2024-04-09 11:04] VITALS: PULSE 75
[2024-04-09] MEDS: SOTALOL HCL 80 MG TABLET 40 MG PO (11:04)
[2024-04-09 11:35] LABS: Glucose Point of Care 76 mg/dl (65-105)
[2024-04-09 11:55] LABS: Glucose Point of Care 100 mg/dl (65-105)
[2024-04-09 15:47] VITALS: BP 140/86; PULSE 95; RESP 20; TEMP 36.6; O2SAT 97
[2024-04-09 16:40] LABS: Glucose Point of Care 114 mg/dl (65-105)
[2024-04-09] MEDS: WARFARIN (*PBKC) 2 MG TABLET 6 MG PO (16:41)
[2024-04-09] MEDS: ACETAMINOPHEN 325 MG TABLET 650 MG PO (16:43)
[2024-04-09] MEDS: POTASSIUM CHLORIDE 10 MEQ ER TABLET PO (20:06)
[2024-04-09] MEDS: MELATONIN 5 MG TABLET PO (20:06)
[2024-04-09] MEDS: SIMVASTATIN 10 MG TABLET PO (20:06)
[2024-04-09 20:10] LABS: Glucose Point of Care 98 mg/dl (65-105)
[2024-04-10] VITALS: BP 129/52; PULSE 74; RESP 18; TEMP 36.5; O2SAT 99
[2024-04-10 05:30] VITALS: O2SAT 98
[2024-04-10 06:40] LABS: INR 1.3; Prothrombin Time 14.4 Seconds (9.50-12.1)
--- NOTE | 2024-04-10 07:48 | P.PNIM_ITS ---
Progress Note: A&P Assessment and Plan (1) Congestive heart failure: Code(s): I50.9 - Heart failure, unspecified Status: Acute Assessment and Plan: * Resumed PO lasix * monitor for fluid overload * does not appear in exacerbation (2) HTN (hypertension): Qualifiers: Hypertension type: primary hypertension Qualified Code(s): I10 - Essential (primary) hypertension Code(s): I10 - Essential (primary) hypertension Status: Acute Assessment and Plan: * Appears well controlled. * resume sotalol * BP per unit protocol (3) Paroxysmal A-fib: Code(s): I48.0 - Paroxysmal atrial fibrillation Status: Acute Assessment and Plan: * Rate currently well controlled. * Continue Warfarin and sotalol 40 mg daily. (4) Hyperlipidemia: Qualifiers: Hyperlipidemia type: mixed hyperlipidemia Qualified Code(s): E78.2 - Mixed hyperlipidemia Code(s): E78.5 - Hyperlipidemia, unspecified Status: Acute Assessment and Plan: * Resume statin. (5) Physical deconditioning: Code(s): R53.81 - Other malaise Status: Acute Assessment and Plan: patient was admitted for continued rehabilitation with physical and occupational therapy after extended hospitalization * PT/OT * out of bed with all meals * encourage range of motion activity while at rest (6) Mechanical heart valve present: Code(s): Z95.2 - Presence of prosthetic heart valve Status: Acute Assessment and Plan: during patient's hospitalization at [place] she did hyper coagulability while on her Coumadin as well a noted hematoma to the abdominal wall no intervention was done however they did hold her Coumadin * current INR is 1.7 with her history of mechanical valve she will need to be INR of 2.0-3.0 * resumed her 6 mg of Coumadin * INR daily and adjust Coumadin as indicated 2/2 * INR 1.3 * increased to 8mg (STTS) and 6mg (MWF) * cbc in the AM to monitor H&H * INR daily until therapeutic (7) Atrial fibrillation: Code(s): I48.91 - Unspecified atrial fibrillation Status: Acute Assessment and Plan: * resume sotalol and Coumadin (8) 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 HS * sliding scale insulin * Holding weekly Ozempic * Diabetic diet * Optimize Braxton inhibitors and statins. * Watch for hypoglycemia/hypoglycemic protocol ordered (10) Chronic kidney disease: Code(s): N18.9 - Chronic kidney disease, unspecified Status: Acute Assessment and Plan: * Avoid nephrotoxic drugs. * Monitor antihypertensive drug therapy. * Avoid NSAIDs. * Routine CMP monitoring GFR. * Monitor electrolytes especially potassium. (11) COPD (chronic obstructive pulmonary disease): Code(s): J44.9 - Chronic obstructive pulmonary disease, unspecified Status: Chronic Assessment and Plan: * Oxygen PRN * Ozzy p.r.n. (12) COVID: Code(s): U07.1 - COVID-19 Status: Acute Assessment and Plan: * antipyretic * oxygen p.r.n. * antiemetics * monitor for any worsening respiratory status asymptomatic at this time Plan Code status: Full code per patient DVT prophylaxis: Coumadin Stress ulcer prophylaxis: Pepcid PT/OT notes: swing bed Disposition: patient continues admission to [facility] for continued rehabilitation patient lives alone at home but plan is to return once there is a safe discharge and she can care for self Time Spent With Patient Time with patient: 15 - 25 minutes Subjective Date/time seen: 04/10/24 07:48 Interval history: Patient is a 78-year-old female who was admitted to the medical unit for rehabilitation after extended hospitalization need to continue to monitor her INR for Coumadin therapeutic coverage. 04/10/24 patient in no acute distress worked well with physical therapy yesterday no complaints at this time. patient's 1.3 will increase Coumadin dosing monitor labs daily Review of Systems Review of Systems: All systems reviewed & are unremarkable except as noted in HPI and below Exam Narrative: * GENERAL: Alert and oriented x 3. Frail appearing female No acute distress. * EYES: PERRLA. * HEENT: Moist mucous membranes. * LUNGS: Clear to auscultation bilaterally. No accessory muscle use. * CARDIOVASCULAR: Regular rate and rhythm. S1-S2 * ABDOMEN: Soft, non tenderness and non-distended. No palpable masses. * EXTREMITIES: No edema. Non-tender * SKIN: No rashes or lesions. Skin warm, dry. * NEUROLOGIC: No focal neurological deficits. CN II-XII grossly intact * PSYCHIATRIC: Appropriate mood and affect. Good judgement and insight. Objective Data Vital Signs Vital Signs: Vital Signs - 24 hr 04/09/24 08:00 04/09/24 11:04 04/09/24 15:47 Temperature 98 F 97.8 F Pulse Rate 70 75 95 Respiratory Rate 18 20 Blood Pressure 140/72 140/86 Pulse Oximetry 94 97 Oxygen Delivery Nasal Cannula Nasal Cannula Oxygen Flow Rate 2 2 04/10/24 00:00 Temperature 97.7 F Pulse Rate 74 Respiratory Rate 18 Blood Pressure 129/52 L Pulse Oximetry 99 Oxygen Delivery Nasal Cannula Oxygen Flow Rate 2 Intake/Output Intake/Output: Intake & Output 04/07/24 04/08/24 04/09/24 04/10/24 23:59 23:59 23:59 23:59 Intake Total 1780 300 Balance 1780 300 Meds/Results Medications: Active Medications Generic Name Dose Route Start Last Admin Trade Name Freq PRN Reason Stop Dose Admin Acetaminophen 650 mg 04/08/24 19:00 04/09/24 16:43 Acetaminophen 325 Mg Tablet PO 650 mg Q6H PRN Administration Mild Pain (1-3) or Fever Hydrocodone Bitart/Acetaminophen 1 tab 04/08/24 18:57 Hydrocodone/Acetaminophen (*Crx) 5-325 Mg Tablet PO Q6H PRN Pain Rated 4-6 Alprazolam 0.25 mg 04/08/24 18:57 Alprazolam (*Crx) 0.25 Mg Tablet PO HS PRN Anxiety Cyanocobalamin 1,000 mcg 04/09/24 09:00 04/09/24 09:19 Cyanocobalamin 1,000 Mcg Tablet PO 1,000 mcg DAILY IAN Administration Dextrose 12.5 gm 04/08/24 19:00 Dextrose 50% 25 Gm/50 Ml Syringe IV PUSH PRN PRN Hypoglycemia Protocol Famotidine 20 mg 04/08/24 21:00 04/09/24 20:06 Famotidine 20 Mg Tablet PO 20 mg Q12HR IAN Administration Furosemide 20 mg 04/09/24 09:00 04/09/24 09:19 Furosemide 20 Mg Tablet PO 20 mg DAILY IAN Administration Gabapentin 300 mg 04/08/24 21:00 04/09/24 20:06 Gabapentin 300 Mg Capsule PO 300 mg Q12H IAN Administration Glucagon 1 mg 04/08/24 19:00 Glucagon For Inj 1 Mg Vial IM PRN PRN Hypoglycemia Protocol Glucose 15 gm 04/08/24 19:00 Glucose Oral Gel 15 Gm Of Glucse In 37.5 Gm Tube PO PRN PRN Hypoglycemia Protocol Dextrose 1,000 mls @ 100 mls/hr 04/08/24 19:00 Dextrose 5% 1,000 Ml IVPB PRN PRN Hypoglycemia Protocol Insulin Human Lispro 2 - 5 units 04/09/24 08:00 04/09/24 16:40 Insulin Human Lispro (*Bkc) 1,000 Units/10 Ml Vial SUB-Q Not Given TIDWM IAN Protocol Levalbuterol HCl 1.25 mg 04/08/24 18:57 Levalbuterol Neb 1.25 Mg/3 Ml INHALATION Q6HRT PRN Shortness Of Breath Melatonin 5 mg 04/08/24 21:00 04/09/24 20:06 Melatonin 5 Mg Tablet PO 5 mg HS IAN Administration Methimazole 5 mg 04/10/24 09:00 Methimazole 5 Mg Tab PO DAILY IAN Nonformulary Drug 0 mg 04/09/24 09:00 04/09/24 09:00 Cinacalcet 15 Mg PO 05/09/24 08:59 Not Given Tablet DAILY IAN Ondansetron HCl 4 mg 04/08/24 19:00 Ondansetron Hcl Odt 4 Mg Tablet PO Q6H PRN Nausea And Vomiting Polyethylene Glycol 17 gm 04/09/24 09:00 04/09/24 09:21 Polyethylene Glycol 3350 17 Gm Powd.Pack PO 17 gm QAM IAN Administration Polyethylene Glycol 17 gm 04/09/24 09:00 04/09/24 09:22 Polyethylene Glycol 3350 17 Gm Powd.Pack PO Not Given QAM IAN Potassium Chloride 10 meq 04/08/24 21:00 04/09/24 20:06 Potassium Chloride 10 Meq Er Tablet PO 10 meq HS IAN Administration Simvastatin 10 mg 04/08/24 21:00 04/09/24 20:06 Simvastatin 10 Mg Tablet PO 10 mg HS IAN Administration Sotalol HCl 40 mg 04/10/24 09:00 Sotalol Hcl 40 Mg Tablet PO DAILY IAN Venlafaxine HCl 150 mg 04/09/24 09:00 04/09/24 09:18 Venlafaxine Hcl Xr 75 Mg Cap.Er.24h PO 150 mg DAILY IAN Administration Vitamin D 1,000 units 04/09/24 09:00 04/09/24 09:19 Cholecalciferol 1,000 Units Tablet PO 1,000 units DAILY IAN Administration Labs Labs: Laboratory Results - last 24 hr 04/09/24 04/09/24 04/09/24 08:41 11:53 16:39 PT INR POC Capillary Glucose 76 100 114 H 04/09/24 04/10/24 20:08 06:22 PT 14.4 H INR 1.3 POC Capillary Glucose 98 Quality VTE Prophylaxis VTE prophylaxis: pharmacologic ordered -Patient's previous records reviewed on admission -ER notes reviewed in detail on admission -discussed all findings and current treatment plan with patient/Family/POA -Consultations reviewed for recommendations -Patient's disposition for safe discharge discussed with case coordinator Dictation performed by [employer] direct speech recognition software, therefore friction saw operator variants and typographical errors may occur. Hospitalist MIPS Advance Care Plan I have confirmed that the patient's Advanced Care Plan is present, code status is documented, or surrogate decision maker is listed in patient medical record.: Yes Medication Reconciliation I have utilized all available resources to obtain, update and review the patients current medications (includes all prescriptions, OTC, herbals, cannabis, and nutritional supplements).: Yes The patient is not eligible for med reconciliation; the patient is in a emergent medical situation where delaying treatment would jeopardize the patients health.: No
[2024-04-10 08:00] VITALS: BP 136/72; PULSE 74; RESP 18; TEMP 36.1; O2SAT 95
[2024-04-10 08:31] LABS: Glucose Point of Care 76 mg/dl (65-105)
[2024-04-10] MEDS: GABAPENTIN 300 MG CAPSULE PO ×2 (09:35→21:21)
[2024-04-10] MEDS: CYANOCOBALAMIN 1,000 MCG TABLET 1000 MCG PO (09:35)
[2024-04-10] MEDS: CHOLECALCIFEROL 1,000 UNITS TABLET 1000 UNITS PO (09:35)
[2024-04-10] MEDS: FAMOTIDINE 20 MG TABLET PO ×2 (09:35→21:21)
[2024-04-10] MEDS: VENLAFAXINE HCL XR 75 MG CAP.ER.24H 150 MG PO (09:35)
[2024-04-10] MEDS: FUROSEMIDE 20 MG TABLET PO (09:35)
[2024-04-10] MEDS: HYDROcodone/acetaminophen (*CRX) 5-325 MG TABLET 1 TAB PO (09:36)
[2024-04-10 10:08] VITALS: PULSE 68
[2024-04-10] MEDS: CINACALCET PO (10:08)
[2024-04-10] MEDS: SOTALOL HCL 40 MG TABLET PO (10:08)
[2024-04-10] MEDS: methiMAzole 5 MG TAB PO (10:08)
[2024-04-10 12:08] LABS: Glucose Point of Care 90 mg/dl (65-105)
[2024-04-10 16:00] VITALS: BP 156/78; PULSE 69; RESP 18; TEMP 36.3; O2SAT 98
[2024-04-10 17:14] LABS: Glucose Point of Care 74 mg/dl (65-105)
[2024-04-10] MEDS: WARFARIN (*PBKC) 2 MG TABLET 8 MG PO (17:53)
[2024-04-10] MEDS: POTASSIUM CHLORIDE 10 MEQ ER TABLET PO (21:21)
[2024-04-10] MEDS: SIMVASTATIN 10 MG TABLET PO (21:21)
[2024-04-10] MEDS: MELATONIN 5 MG TABLET PO (21:21)
[2024-04-10 21:28] LABS: Glucose Point of Care 112 mg/dl (65-105)
[2024-04-11] VITALS: BP 146/76; PULSE 76; RESP 18; TEMP 36.8; O2SAT 97
[2024-04-11 05:30] VITALS: O2SAT 98
[2024-04-11 05:35] LABS: Hematocrit 30.8 % (35.0-42.0); Hemoglobin 9.3 g/dL (11.7-13.8); Mean Corpuscular HGB Conc 30.2 g/dL (32-36); Mean Corpuscular Volume 105.8 fL (78.0-102.0); Mean Platelet Volume 11.8 fl (9.2-11.8); Platelet Count Result 281 K/mm3 (150-420); Red Blood Count 2.91 M/mm3 (4.20-5.40); White Blood Count 5.8 K/mm3 (4.8-10.8)
[2024-04-11 05:56] LABS: INR 1.4; Prothrombin Time 14.8 Seconds (9.50-12.1)
[2024-04-11 08:00] VITALS: BP 117/66; PULSE 78; RESP 18; TEMP 36.4; O2SAT 96
[2024-04-11 10:04] VITALS: PULSE 72
[2024-04-11] MEDS: CHOLECALCIFEROL 1,000 UNITS TABLET 1000 UNITS PO (10:04)
[2024-04-11] MEDS: SOTALOL HCL 40 MG TABLET PO (10:04)
[2024-04-11] MEDS: VENLAFAXINE HCL XR 75 MG CAP.ER.24H 150 MG PO (10:04)
[2024-04-11] MEDS: CINACALCET PO (10:04)
[2024-04-11] MEDS: CYANOCOBALAMIN 1,000 MCG TABLET 1000 MCG PO (10:05)
[2024-04-11] MEDS: FAMOTIDINE 20 MG TABLET PO ×2 (10:05→21:10)
[2024-04-11] MEDS: GABAPENTIN 300 MG CAPSULE PO ×2 (10:05→21:09)
[2024-04-11] MEDS: FUROSEMIDE 20 MG TABLET PO (10:05)
[2024-04-11] MEDS: guaiFENesin 12 HR 600 MG TABCR 1200 MG PO ×2 (10:07→21:10)
[2024-04-11] MEDS: HYDROcodone/acetaminophen (*CRX) 5-325 MG TABLET 1 TAB PO (10:07)
[2024-04-11] MEDS: methiMAzole 5 MG TAB PO (10:08)
[2024-04-11 12:04] LABS: Glucose Point of Care 89 mg/dl (65-105)
[2024-04-11 16:00] VITALS: BP 135/84; PULSE 65; RESP 20; TEMP 36.2; O2SAT 96
[2024-04-11 17:08] LABS: Glucose Point of Care 79 mg/dl (65-105)
[2024-04-11] MEDS: WARFARIN (*PBKC) 2 MG TABLET 6 MG PO (17:53)
[2024-04-11] MEDS: POTASSIUM CHLORIDE 10 MEQ ER TABLET PO (21:09)
[2024-04-11] MEDS: MELATONIN 5 MG TABLET PO (21:10)
[2024-04-11] MEDS: SIMVASTATIN 10 MG TABLET PO (21:10)
[2024-04-11 21:19] LABS: Glucose Point of Care 126 mg/dl (65-105)
--- NOTE | 2024-04-11 22:43 | PC.NURSE ---
Patient sleeping when nurse entered to obtain glucose test and give HS medications. Patient awakened easily. Able to take medication without difficulty. Call light and belongings within reach. Continues on isolation for COVID.
[2024-04-12 05:30] VITALS: O2SAT 95
[2024-04-12 06:00] LABS: INR 1.7; Prothrombin Time 18.3 Seconds (9.50-12.1)
[2024-04-12 08:00] VITALS: BP 119/67; PULSE 72; RESP 17; TEMP 36.2; O2SAT 94
[2024-04-12 08:02] LABS: Glucose Point of Care 77 mg/dl (65-105)
[2024-04-12] MEDS: VENLAFAXINE HCL XR 75 MG CAP.ER.24H 150 MG PO (10:18)
[2024-04-12] MEDS: CHOLECALCIFEROL 1,000 UNITS TABLET 1000 UNITS PO (10:18)
[2024-04-12 10:19] VITALS: PULSE 72
[2024-04-12] MEDS: CYANOCOBALAMIN 1,000 MCG TABLET 1000 MCG PO (10:19)
[2024-04-12] MEDS: SOTALOL HCL 40 MG TABLET PO (10:19)
[2024-04-12] MEDS: GABAPENTIN 300 MG CAPSULE PO ×2 (10:19→21:38)
[2024-04-12] MEDS: guaiFENesin 12 HR 600 MG TABCR 1200 MG PO ×2 (10:19→21:38)
[2024-04-12] MEDS: FUROSEMIDE 20 MG TABLET PO (10:19)
[2024-04-12] MEDS: methiMAzole 5 MG TAB PO (10:19)
[2024-04-12] MEDS: FAMOTIDINE 20 MG TABLET PO ×2 (10:19→21:38)
[2024-04-12] MEDS: CINACALCET PO (10:20)
[2024-04-12] MEDS: HYDROcodone/acetaminophen (*CRX) 5-325 MG TABLET 1 TAB PO ×2 (10:25→16:54)
[2024-04-12 12:06] LABS: Glucose Point of Care 87 mg/dl (65-105)
[2024-04-12 16:00] VITALS: BP 140/68; PULSE 68; RESP 17; TEMP 36.6; O2SAT 93
[2024-04-12] MEDS: WARFARIN (*PBKC) 2 MG TABLET 8 MG PO (16:53)
[2024-04-12 16:59] LABS: Glucose Point of Care 84 mg/dl (65-105)
[2024-04-12] MEDS: MELATONIN 5 MG TABLET PO (21:38)
[2024-04-12] MEDS: SIMVASTATIN 10 MG TABLET PO (21:39)
[2024-04-12] MEDS: POTASSIUM CHLORIDE 10 MEQ ER TABLET PO (21:39)
[2024-04-12 21:58] LABS: Glucose Point of Care 78 mg/dl (65-105)
[2024-04-12 23:52] VITALS: BP 129/70; PULSE 72; RESP 18; TEMP 36.4; O2SAT 95
[2024-04-13 05:30] VITALS: O2SAT 95
[2024-04-13 05:38] LABS: INR 2.4; Prothrombin Time 24.3 Seconds (9.50-12.1)
[2024-04-13 08:00] VITALS: BP 118/73; PULSE 75; RESP 18; TEMP 36.1; O2SAT 95
[2024-04-13] MEDS: methiMAzole 5 MG TAB PO (08:00)
[2024-04-13] MEDS: guaiFENesin 12 HR 600 MG TABCR 1200 MG PO ×2 (08:00→20:53)
[2024-04-13] MEDS: CINACALCET 15 EACH PO (08:00)
[2024-04-13] MEDS: FAMOTIDINE 20 MG TABLET PO ×2 (08:01→20:54)
[2024-04-13] MEDS: SOTALOL HCL 40 MG TABLET PO (08:01)
[2024-04-13] MEDS: GABAPENTIN 300 MG CAPSULE PO ×2 (08:01→20:54)
[2024-04-13] MEDS: CYANOCOBALAMIN 1,000 MCG TABLET 1000 MCG PO (08:01)
[2024-04-13] MEDS: FUROSEMIDE 20 MG TABLET PO (08:02)
[2024-04-13] MEDS: CHOLECALCIFEROL 1,000 UNITS TABLET 1000 UNITS PO (08:02)
[2024-04-13] MEDS: VENLAFAXINE HCL XR 75 MG CAP.ER.24H 150 MG PO (08:02)
[2024-04-13 16:00] VITALS: BP 124/55; PULSE 87; RESP 20; TEMP 36.9; O2SAT 94
[2024-04-13 16:08] VITALS: PULSE 76; RESP 20; O2SAT 95
[2024-04-13] MEDS: LEVALBUTEROL NEB 1.25 MG/3 ML INHALATION (16:11)
[2024-04-13 16:15] VITALS: PULSE 78; RESP 20; O2SAT 98
[2024-04-13] MEDS: ACETAMINOPHEN 325 MG TABLET 650 MG PO (18:23)
[2024-04-13] MEDS: WARFARIN (*PBKC) 2 MG TABLET 6 MG PO (18:23)
[2024-04-13] MEDS: POTASSIUM CHLORIDE 10 MEQ ER TABLET PO (20:54)
[2024-04-13] MEDS: SIMVASTATIN 10 MG TABLET PO (20:54)
[2024-04-13] MEDS: MELATONIN 5 MG TABLET PO (20:54)
[2024-04-13 21:09] LABS: Glucose Point of Care 122 mg/dl (65-105)
[2024-04-14] VITALS (7 sets, daily range): BP systolic 124–146; BP diastolic 55–77; PULSE 72–82; RESP 15–18; TEMP 36.2–37; O2SAT 91–98
[2024-04-14 05:37] LABS: Prothrombin Time 29.7 Seconds (9.50-12.1)
[2024-04-14 08:11] LABS: Glucose Point of Care 85 mg/dl (65-105)
[2024-04-14] MEDS: HYDROcodone/acetaminophen (*CRX) 5-325 MG TABLET 1 TAB PO ×2 (09:06→20:07)
[2024-04-14] MEDS: GABAPENTIN 300 MG CAPSULE PO ×2 (09:06→20:07)
[2024-04-14] MEDS: SOTALOL HCL 40 MG TABLET PO (09:07)
[2024-04-14] MEDS: guaiFENesin 12 HR 600 MG TABCR 1200 MG PO ×2 (09:07→20:06)
[2024-04-14] MEDS: VENLAFAXINE HCL XR 75 MG CAP.ER.24H 150 MG PO (09:07)
[2024-04-14] MEDS: CHOLECALCIFEROL 1,000 UNITS TABLET 1000 UNITS PO (09:07)
[2024-04-14] MEDS: CINACALCET 15 EACH PO (09:08)
[2024-04-14] MEDS: FAMOTIDINE 20 MG TABLET PO ×2 (09:08→20:07)
[2024-04-14] MEDS: FUROSEMIDE 20 MG TABLET PO (09:08)
[2024-04-14] MEDS: methiMAzole 5 MG TAB PO (09:08)
[2024-04-14] MEDS: CYANOCOBALAMIN 1,000 MCG TABLET 1000 MCG PO (09:12)
[2024-04-14 12:03] LABS: Glucose Point of Care 119 mg/dl (65-105)
[2024-04-14] MEDS: WARFARIN (*PBKC) 2 MG TABLET 8 MG PO (17:19)
--- NOTE | 2024-04-14 19:26 | PC.NURSE ---
1530-Report from Michelle HUNTER. Patient is awake and alert. Oriented x4. Cooperative and pleasant. Spo2 88% on room air, 91% on O2 @ 2L. Breath sounds harsh bilaterally with rhonchil. Patient denies shortness of breath. However, after talking patient noted to have dyspnea. No edema noted.
[2024-04-14] MEDS: SIMVASTATIN 10 MG TABLET PO (20:06)
[2024-04-14] MEDS: MELATONIN 5 MG TABLET PO (20:07)
[2024-04-14] MEDS: ALPRAZolam (*CRX) 0.25 MG TABLET PO (20:07)
[2024-04-14] MEDS: POTASSIUM CHLORIDE 10 MEQ ER TABLET PO (20:07)
[2024-04-14 20:12] LABS: Glucose Point of Care 150 mg/dl (65-105)
[2024-04-15 05:30] VITALS: O2SAT 95
[2024-04-15 06:02] LABS: Prothrombin Time 29.8 Seconds (9.50-12.1)
[2024-04-15 08:00] VITALS: BP 120/63; PULSE 80; RESP 16; RESP 17; TEMP 37; O2SAT 93; O2SAT 98
[2024-04-15 08:04] VITALS: PULSE 80
[2024-04-15] MEDS: SOTALOL HCL 40 MG TABLET PO (08:04)
[2024-04-15] MEDS: FAMOTIDINE 20 MG TABLET PO ×2 (08:04→20:44)
[2024-04-15] MEDS: FUROSEMIDE 20 MG TABLET PO (08:04)
[2024-04-15] MEDS: GABAPENTIN 300 MG CAPSULE PO ×2 (08:04→20:44)
[2024-04-15] MEDS: methiMAzole 5 MG TAB PO (08:04)
[2024-04-15] MEDS: CYANOCOBALAMIN 1,000 MCG TABLET 1000 MCG PO (08:04)
[2024-04-15] MEDS: guaiFENesin 12 HR 600 MG TABCR 1200 MG PO ×2 (08:04→20:44)
[2024-04-15] MEDS: CHOLECALCIFEROL 1,000 UNITS TABLET 1000 UNITS PO (08:04)
[2024-04-15] MEDS: VENLAFAXINE HCL XR 75 MG CAP.ER.24H 150 MG PO (08:04)
[2024-04-15] MEDS: CINACALCET 15 EACH PO (08:05)
[2024-04-15] MEDS: HYDROcodone/acetaminophen (*CRX) 5-325 MG TABLET 1 TAB PO (08:05)
[2024-04-15 10:08] VITALS: PULSE 73; RESP 20; O2SAT 96
[2024-04-15] MEDS: LEVALBUTEROL NEB 1.25 MG/3 ML INHALATION (10:11)
[2024-04-15 10:15] VITALS: PULSE 75; RESP 20; O2SAT 98
[2024-04-15 15:50] VITALS: BP 126/68; PULSE 60; RESP 18; TEMP 36.6; O2SAT 94
[2024-04-15] MEDS: WARFARIN (*PBKC) 2 MG TABLET 6 MG PO (16:48)
[2024-04-15] MEDS: SIMVASTATIN 10 MG TABLET PO (20:44)
[2024-04-15] MEDS: POTASSIUM CHLORIDE 10 MEQ ER TABLET PO (20:44)
[2024-04-15] MEDS: MELATONIN 5 MG TABLET PO (20:44)
[2024-04-15] MEDS: ALPRAZolam (*CRX) 0.25 MG TABLET PO (20:45)
[2024-04-16] VITALS: BP 120/85; PULSE 89; RESP 17; TEMP 36.6; O2SAT 93
[2024-04-16 05:30] VITALS: O2SAT 95
[2024-04-16 06:08] LABS: INR 3.9; Prothrombin Time 37.5 Seconds (9.50-12.1)
[2024-04-16 08:00] VITALS: BP 138/64; PULSE 90; RESP 16; TEMP 36.6; O2SAT 95
[2024-04-16] MEDS: VENLAFAXINE HCL XR 75 MG CAP.ER.24H 150 MG PO (09:42)
[2024-04-16] MEDS: FAMOTIDINE 20 MG TABLET PO ×2 (09:43→20:53)
[2024-04-16] MEDS: GABAPENTIN 300 MG CAPSULE PO ×2 (09:43→20:53)
[2024-04-16] MEDS: FUROSEMIDE 20 MG TABLET PO (09:43)
[2024-04-16] MEDS: methiMAzole 5 MG TAB PO (09:43)
[2024-04-16] MEDS: guaiFENesin 12 HR 600 MG TABCR 1200 MG PO ×2 (09:43→20:53)
[2024-04-16] MEDS: CHOLECALCIFEROL 1,000 UNITS TABLET 1000 UNITS PO (09:43)
[2024-04-16 09:44] VITALS: PULSE 90
[2024-04-16] MEDS: CYANOCOBALAMIN 1,000 MCG TABLET 1000 MCG PO (09:44)
[2024-04-16] MEDS: SOTALOL HCL 40 MG TABLET PO (09:44)
[2024-04-16] MEDS: CINACALCET 15 EACH PO (09:44)
[2024-04-16] MEDS: HYDROcodone/acetaminophen (*CRX) 5-325 MG TABLET 1 TAB PO ×2 (09:47→20:54)
[2024-04-16 15:59] VITALS: BP 125/65; PULSE 67; RESP 18; TEMP 36.3; O2SAT 96
--- NOTE | 2024-04-16 16:30 | PM.EVENT ---
Event Note Event Note Event Note: INR 3.9 today. Coumadin decreased to 4 mg for tonight. Will repeat labs in the morning.
[2024-04-16] MEDS: WARFARIN (*PBKC) 2 MG TABLET 4 MG PO (16:51)
[2024-04-16] MEDS: MELATONIN 5 MG TABLET PO (20:53)
[2024-04-16] MEDS: POTASSIUM CHLORIDE 10 MEQ ER TABLET PO (20:53)
[2024-04-16] MEDS: ALPRAZolam (*CRX) 0.25 MG TABLET PO (20:53)
[2024-04-16] MEDS: SIMVASTATIN 10 MG TABLET PO (20:53)
[2024-04-17] VITALS: BP 136/76; PULSE 86; RESP 17; TEMP 36.4; O2SAT 94
[2024-04-17 05:30] VITALS: O2SAT 91
[2024-04-17 08:00] VITALS: BP 108/71; PULSE 94; RESP 17; TEMP 35.9; O2SAT 95
--- NOTE | 2024-04-17 08:34 | P.PNIM_ITS ---
Progress Note: A&P Assessment and Plan (1) Congestive heart failure: Code(s): I50.9 - Heart failure, unspecified Status: Acute Assessment and Plan: * Resumed PO lasix * monitor for fluid overload * does not appear in exacerbation 04/17 * continue Lasix * appears euvolemic (2) HTN (hypertension): Qualifiers: Hypertension type: primary hypertension Qualified Code(s): I10 - Essential (primary) hypertension Code(s): I10 - Essential (primary) hypertension Status: Acute Assessment and Plan: * Appears well controlled. * resume sotalol * BP per unit protocol 04/17 * blood pressures ranging 125/65 to 138/64 * continue sotalol (3) Paroxysmal A-fib: Code(s): I48.0 - Paroxysmal atrial fibrillation Status: Acute Assessment and Plan: * Rate currently well controlled. * Continue Warfarin and sotalol 40 mg daily. 04/17 * INR 3.9 today, will hold warfarin today * repeat lab in the morning * continue sotalol for rate control (4) Hyperlipidemia: Qualifiers: Hyperlipidemia type: mixed hyperlipidemia Qualified Code(s): E78.2 - Mixed hyperlipidemia Code(s): E78.5 - Hyperlipidemia, unspecified Status: Acute Assessment and Plan: * Resume statin. 04/17 * no change to current treatment plan (5) Physical deconditioning: Code(s): R53.81 - Other malaise Status: Acute Assessment and Plan: patient was admitted for continued rehabilitation with physical and occupational therapy after extended hospitalization * PT/OT * out of bed with all meals * encourage range of motion activity while at rest 04/17 * no change to current treatment plan (6) Mechanical heart valve present: Code(s): Z95.2 - Presence of prosthetic heart valve Status: Acute Assessment and Plan: during patient's hospitalization at [place] she did hyper coagulability while on her Coumadin as well a noted hematoma to the abdominal wall no intervention was done however they did hold her Coumadin * current INR is 1.7 with her history of mechanical valve she will need to be INR of 2.0-3.0 * resumed her 6 mg of Coumadin * INR daily and adjust Coumadin as indicated 04/10 * INR 1.3 * increased to 8mg (STTS) and 6mg (MWF) * cbc in the AM to monitor H&H * INR daily until therapeutic 04/17 * INR 3.9 * will hold Coumadin today * will recheck in the morning (7) Diabetes: Code(s): E11.9 - Type 2 diabetes mellitus without complications Status: Acute Assessment and Plan: * Accu-Cheks a.c. HS * sliding scale insulin * Holding weekly Ozempic * Diabetic diet * Optimize Braxton inhibitors and statins. * Watch for hypoglycemia/hypoglycemic protocol ordered 04/17 * no change to current treatment plan (8) Chronic kidney disease: Code(s): N18.9 - Chronic kidney disease, unspecified Status: Acute Assessment and Plan: * Avoid nephrotoxic drugs. * Monitor antihypertensive drug therapy. * Avoid NSAIDs. * Routine CMP monitoring GFR. * Monitor electrolytes especially potassium. 04/17 * creatinine 1.16, EGFR 45 * appears to be at her baseline (9) COPD (chronic obstructive pulmonary disease): Code(s): J44.9 - Chronic obstructive pulmonary disease, unspecified Status: Chronic Assessment and Plan: * Oxygen PRN * DuoNebs p.r.n. 04/17 * no change to current treatment plan (10) COVID: Code(s): U07.1 - COVID-19 Status: Acute Assessment and Plan: * antipyretic * oxygen p.r.n. * antiemetics * monitor for any worsening respiratory status asymptomatic at this time 04/17 * supportive care Time Spent With Patient Time with patient: 15 - 25 minutes Subjective Date/time seen: 04/17/24 08:34 Interval history: Interval history: This is a 78 year old female with a significant past medical history of hypertension, mechanical aortic valve, COPD, CKD, diabetes, hypertension who presented to [facility] for rehab after her recent hospital stay at [facility] for atrial fibrillation with RVR, pneumonia, acute on chronic heart failure exacerbation. Her initial plan was to go to an acute rehab, however she tested positive for COVID and that facility was not accepting COVID patients and was sent here instead for additional rehab. Subjective: Patient denies any new complaints today. Labs reviewed. Review of Systems Review of Systems: All systems reviewed & are unremarkable except as noted in HPI and below Exam Narrative: General: In no acute distress, well nourished Head: atraumatic, no encephalopathy Eyes: PERRLA, sclera clear ENT: moist mucous membranes, nasal passages clear Neck: supple, no JVD, no adenopathy, trachea midline Cardiac: Normal S1 and S2. No murmur, gallops or friction rubs, peripheral pulses intact. Respiratory: Lungs clear to auscultation, no adventitious lung sounds, currently on room air Gastrointestinal: soft, non-distended, non-tender, normoactive bowel sounds. : voiding without difficulty. Extremities: moves all extremities well, no edema Skin: clean, dry, intact. No wounds or lesions. Neuro: Alert and oriented x4, cranial nerves intact, no neuro deficits. Psych: normal mood, normal affect, interactive Objective Data Vital Signs Vital Signs: Vital Signs - 24 hr 04/16/24 09:44 04/16/24 15:59 04/17/24 00:00 Temperature 97.4 F L 97.5 F L Pulse Rate 90 67 86 Respiratory Rate 18 17 Blood Pressure 125/65 136/76 Pulse Oximetry 96 94 Oxygen Delivery Room Air Room Air Intake/Output Intake/Output: Intake & Output 04/14/24 04/15/24 04/16/24 04/17/24 23:59 23:59 23:59 23:59 Intake Total 1290 1020 1450 250 Balance 1290 1020 1450 250 Meds/Results Medications: Active Medications Generic Name Dose Route Start Last Admin Trade Name Freq PRN Reason Stop Dose Admin Acetaminophen 650 mg 04/08/24 19:00 04/13/24 18:23 Acetaminophen 325 Mg Tablet PO 650 mg Q6H PRN Administration Mild Pain (1-3) or Fever Hydrocodone Bitart/Acetaminophen 1 tab 04/08/24 18:57 04/16/24 20:54 Hydrocodone/Acetaminophen (*Crx) 5-325 Mg Tablet PO 1 tab Q6H PRN Administration Pain Rated 4-6 Alprazolam 0.25 mg 04/08/24 18:57 04/16/24 20:53 Alprazolam (*Crx) 0.25 Mg Tablet PO 0.25 mg HS PRN Administration Anxiety Cyanocobalamin 1,000 mcg 04/09/24 09:00 04/16/24 09:44 Cyanocobalamin 1,000 Mcg Tablet PO 1,000 mcg DAILY IAN Administration Dextrose 12.5 gm 04/08/24 19:00 Dextrose 50% 25 Gm/50 Ml Syringe IV PUSH PRN PRN Hypoglycemia Protocol Famotidine 20 mg 04/08/24 21:00 04/16/24 20:53 Famotidine 20 Mg Tablet PO 20 mg Q12HR IAN Administration Furosemide 20 mg 04/09/24 09:00 04/16/24 09:43 Furosemide 20 Mg Tablet PO 20 mg DAILY IAN Administration Gabapentin 300 mg 04/08/24 21:00 04/16/24 20:53 Gabapentin 300 Mg Capsule PO 300 mg Q12H IAN Administration Glucagon 1 mg 04/08/24 19:00 Glucagon For Inj 1 Mg Vial IM PRN PRN Hypoglycemia Protocol Glucose 15 gm 04/08/24 19:00 Glucose Oral Gel 15 Gm Of Glucse In 37.5 Gm Tube PO PRN PRN Hypoglycemia Protocol Guaifenesin 1,200 mg 04/11/24 09:00 04/16/24 20:53 Guaifenesin 12 Hr 600 Mg Tabcr PO 1,200 mg Q12HR IAN Administration Dextrose 1,000 mls @ 100 mls/hr 04/08/24 19:00 Dextrose 5% 1,000 Ml IVPB PRN PRN Hypoglycemia Protocol Levalbuterol HCl 1.25 mg 04/08/24 18:57 04/15/24 10:11 Levalbuterol Neb 1.25 Mg/3 Ml INHALATION 1.25 mg Q6HRT PRN Administration Shortness Of Breath Melatonin 5 mg 04/08/24 21:00 04/16/24 20:53 Melatonin 5 Mg Tablet PO 5 mg HS IAN Administration Methimazole 5 mg 04/10/24 09:00 04/16/24 09:43 Methimazole 5 Mg Tab PO 5 mg DAILY IAN Administration Nonformulary Drug 15 mg 04/13/24 09:00 04/16/24 09:44 Cinacalcet 15 Mg PO 05/09/24 08:59 15 mg Tablet DAILY IAN Administration Ondansetron HCl 4 mg 04/08/24 19:00 Ondansetron Hcl Odt 4 Mg Tablet PO Q6H PRN Nausea And Vomiting Polyethylene Glycol 17 gm 04/10/24 09:48 Polyethylene Glycol 3350 17 Gm Powd.Pack PO QAM PRN constipation Potassium Chloride 10 meq 04/08/24 21:00 04/16/24 20:53 Potassium Chloride 10 Meq Er Tablet PO 10 meq HS IAN Administration Simvastatin 10 mg 04/08/24 21:00 04/16/24 20:53 Simvastatin 10 Mg Tablet PO 10 mg HS IAN Administration Sotalol HCl 40 mg 04/10/24 09:00 04/16/24 09:44 Sotalol Hcl 40 Mg Tablet PO 40 mg DAILY IAN Administration Venlafaxine HCl 150 mg 04/09/24 09:00 04/16/24 09:42 Venlafaxine Hcl Xr 75 Mg Cap.Er.24h PO 150 mg DAILY IAN Administration Vitamin D 1,000 units 04/09/24 09:00 04/16/24 09:43 Cholecalciferol 1,000 Units Tablet PO 1,000 units DAILY IAN Administration Warfarin Sodium 8 mg 04/10/24 17:00 04/14/24 17:19 Warfarin (*Pbkc) 2 Mg Tablet PO 8 mg [id number] IAN Administration Warfarin Sodium 6 mg 04/11/24 17:00 04/15/24 16:48 Warfarin (*Pbkc) 2 Mg Tablet PO 6 mg [id number] [facility] Administration Warfarin Sodium 4 mg 04/16/24 17:00 04/16/24 16:51 Warfarin (*Pbkc) 2 Mg Tablet PO 4 mg DAILY@1700 [facility] Administration Quality VTE Prophylaxis VTE prophylaxis: pharmacologic ordered
[2024-04-17 09:00] LABS: Basophils Absolute Auto 0.11 K/mm3 (0.00-0.10); Basophils Percent Auto 2.1 % (0.0-1.0); Eosinophils Absolute Auto 0.31 K/mm3 (0.02-0.50); Hematocrit 35.4 % (35.0-42.0); Hemoglobin 10.8 g/dL (11.7-13.8); Immature Granulocyte Absolute 0.01 K/mm3 (0.00-0.00); Immature Granulocyte Percent A 0.2 % (0.0-0.0); Lymphocytes Absolute Auto 1.63 K/mm3 (1.10-4.50); Lymphocytes Percent Auto 31.5 % (18.0-42.0); Mean Corpuscular HGB Conc 30.5 g/dL (32-36); Mean Corpuscular Hemoglobin 31.9 pg (27.0-31.0); Mean Corpuscular Volume 104.4 fL (78.0-102.0); Mean Platelet Volume 12.1 fl (9.2-11.8); Monocytes Absolute Auto 0.75 K/mm3 (0.10-0.90); Monocytes Percent Auto 14.5 % (2.0-11.0); Neutrophils Absolute Auto 2.37 K/mm3 (1.70-7.20); Neutrophils Percent Auto 45.7 % (50.0-70.0); Platelet Count Result 331 K/mm3 (150-420); Red Blood Count 3.39 M/mm3 (4.20-5.40); White Blood Count 5.2 K/mm3 (4.8-10.8)
[2024-04-17 09:25] LABS: INR 3.9; Prothrombin Time 37.7 Seconds (9.50-12.1)
[2024-04-17] MEDS: CHOLECALCIFEROL 1,000 UNITS TABLET 1000 UNITS PO (09:36)
[2024-04-17] MEDS: VENLAFAXINE HCL XR 75 MG CAP.ER.24H 150 MG PO (09:36)
[2024-04-17 09:37] VITALS: PULSE 87
[2024-04-17 09:37] LABS: Alanine Aminotransferase 20 U/L (14-59); Albumin Level 2.8 g/dL (3.4-5.0); Alkaline Phosphatase 85 U/L (46-116); Anion Gap 3 mmol/L (4-12); Aspartate Amino Transferase 26 U/L (15-37); Bilirubin,Total 0.4 mg/dL (0.00-1.00); Blood Urea Nitrogen 10 mg/dL (7-18); Calcium 9.4 mg/dL (8.5-10.1); Carbon Dioxide 35 mmol/L (21-32); Chloride 104 mmol/L (98-108); Estimated CRCL calculation 35 ml/min; Estimated Glomerular Filt Rate 45; Glucose 72 mg/dL (70-99); Osmolality Calculated 292 mOsm/kg (285-295); Sodium 142 mmol/L (136-145); Total Protein 7.5 g/dL (6.4-8.2)
[2024-04-17] MEDS: guaiFENesin 12 HR 600 MG TABCR 1200 MG PO ×2 (09:37→20:37)
[2024-04-17] MEDS: SOTALOL HCL 40 MG TABLET PO (09:37)
[2024-04-17] MEDS: CYANOCOBALAMIN 1,000 MCG TABLET 1000 MCG PO (09:37)
[2024-04-17] MEDS: GABAPENTIN 300 MG CAPSULE PO ×2 (09:38→20:37)
[2024-04-17] MEDS: FUROSEMIDE 20 MG TABLET PO (09:38)
[2024-04-17] MEDS: HYDROcodone/acetaminophen (*CRX) 5-325 MG TABLET 1 TAB PO ×2 (09:38→20:38)
[2024-04-17] MEDS: CINACALCET 15 EACH PO (09:38)
[2024-04-17] MEDS: FAMOTIDINE 20 MG TABLET PO ×2 (09:38→20:37)
[2024-04-17] MEDS: methiMAzole 5 MG TAB PO (09:38)
[2024-04-17 16:00] VITALS: BP 125/66; PULSE 72; RESP 18; TEMP 35.7; O2SAT 93
[2024-04-17] MEDS: MELATONIN 5 MG TABLET PO (20:37)
[2024-04-17] MEDS: SIMVASTATIN 10 MG TABLET PO (20:37)
[2024-04-17] MEDS: ALPRAZolam (*CRX) 0.25 MG TABLET PO (20:38)
[2024-04-17] MEDS: POTASSIUM CHLORIDE 10 MEQ ER TABLET PO (20:38)
[2024-04-18] VITALS: BP 148/86; PULSE 84; RESP 20; TEMP 36.6; O2SAT 91
[2024-04-18 05:30] VITALS: O2SAT 93
[2024-04-18 07:39] LABS: INR 3.4; Prothrombin Time 33.5 Seconds (9.50-12.1)
[2024-04-18 08:00] VITALS: BP 115/67; PULSE 84; PULSE 86; RESP 18; RESP 20; TEMP 36.5; O2SAT 95
[2024-04-18] MEDS: CINACALCET 15 EACH PO (09:01)
[2024-04-18 09:02] VITALS: PULSE 87
[2024-04-18] MEDS: CHOLECALCIFEROL 1,000 UNITS TABLET 1000 UNITS PO (09:02)
[2024-04-18] MEDS: GABAPENTIN 300 MG CAPSULE PO ×2 (09:02→20:17)
[2024-04-18] MEDS: SOTALOL HCL 40 MG TABLET PO (09:02)
[2024-04-18] MEDS: guaiFENesin 12 HR 600 MG TABCR 1200 MG PO ×2 (09:03→20:16)
[2024-04-18] MEDS: FUROSEMIDE 20 MG TABLET PO (09:04)
[2024-04-18] MEDS: methiMAzole 5 MG TAB PO (09:04)
[2024-04-18] MEDS: VENLAFAXINE HCL XR 75 MG CAP.ER.24H 150 MG PO (09:04)
[2024-04-18] MEDS: FAMOTIDINE 20 MG TABLET PO ×2 (09:04→20:17)
[2024-04-18] MEDS: CYANOCOBALAMIN 1,000 MCG TABLET 1000 MCG PO (09:04)
[2024-04-18] MEDS: HYDROcodone/acetaminophen (*CRX) 5-325 MG TABLET 1 TAB PO ×2 (09:09→20:17)
--- NOTE | 2024-04-18 10:17 | PM.EVENT ---
Event Note Event Note Event Note: INR 3.4 today, will restart Warfarin 6mg tonight.
[2024-04-18 11:20] LABS: Glucose Point of Care 106 mg/dl (65-105)
[2024-04-18 16:00] VITALS: BP 135/80; PULSE 84; RESP 16; TEMP 36.4; O2SAT 94
[2024-04-18] MEDS: WARFARIN (*PBKC) 2 MG TABLET 6 MG PO (17:52)
[2024-04-18 20:00] VITALS: PULSE 84; RESP 16; O2SAT 94
[2024-04-18] MEDS: ALPRAZolam (*CRX) 0.25 MG TABLET PO (20:16)
[2024-04-18] MEDS: POTASSIUM CHLORIDE 10 MEQ ER TABLET PO (20:17)
[2024-04-18] MEDS: MELATONIN 5 MG TABLET PO (20:17)
[2024-04-18] MEDS: SIMVASTATIN 10 MG TABLET PO (20:17)
[2024-04-19] VITALS: BP 137/74; PULSE 81; RESP 18; TEMP 36.5; O2SAT 96
[2024-04-19 05:39] LABS: INR 2.9; Prothrombin Time 29.2 Seconds (9.50-12.1)
[2024-04-19 08:00] VITALS: BP 160/90; PULSE 102; RESP 20; TEMP 36.6; O2SAT 96
[2024-04-19] MEDS: FAMOTIDINE 20 MG TABLET PO ×2 (08:51→20:14)
[2024-04-19] MEDS: CINACALCET 15 EACH PO (08:51)
[2024-04-19] MEDS: guaiFENesin 12 HR 600 MG TABCR 1200 MG PO (08:51)
[2024-04-19] MEDS: CHOLECALCIFEROL 1,000 UNITS TABLET 1000 UNITS PO (08:51)
[2024-04-19 08:52] VITALS: PULSE 98
[2024-04-19] MEDS: SOTALOL HCL 40 MG TABLET PO (08:52)
[2024-04-19] MEDS: GABAPENTIN 300 MG CAPSULE PO ×2 (08:52→20:14)
[2024-04-19] MEDS: VENLAFAXINE HCL XR 75 MG CAP.ER.24H 150 MG PO (08:52)
[2024-04-19] MEDS: CYANOCOBALAMIN 1,000 MCG TABLET 1000 MCG PO (08:52)
[2024-04-19] MEDS: [UNRECOGNIZED DRUG - REMARK] 1 EACH XX (08:53)
[2024-04-19] MEDS: FUROSEMIDE 20 MG TABLET PO (08:53)
[2024-04-19] MEDS: methiMAzole 5 MG TAB PO (08:53)
[2024-04-19 16:00] VITALS: BP 112/57; PULSE 85; RESP 16; TEMP 36.5; O2SAT 95
[2024-04-19] MEDS: BENZONATATE 100 MG CAPSULE 200 MG PO ×2 (17:17→20:15)
[2024-04-19] MEDS: WARFARIN (*PBKC) 2 MG TABLET 8 MG PO (17:18)
[2024-04-19] MEDS: ACETAMINOPHEN 325 MG TABLET 650 MG PO (17:47)
[2024-04-19 20:00] VITALS: PULSE 85; RESP 16; O2SAT 95
[2024-04-19] MEDS: ALPRAZolam (*CRX) 0.25 MG TABLET PO (20:14)
[2024-04-19] MEDS: SIMVASTATIN 10 MG TABLET PO (20:14)
[2024-04-19] MEDS: MELATONIN 5 MG TABLET PO (20:14)
[2024-04-19] MEDS: POTASSIUM CHLORIDE 10 MEQ ER TABLET PO (20:15)
[2024-04-19] MEDS: HYDROcodone/acetaminophen (*CRX) 5-325 MG TABLET 1 TAB PO (20:15)
[2024-04-19] MEDS: DICLOFENAC SODIUM 1% 100 GM GEL (*BKC) 1 APPLIC TOPICAL (20:15)
[2024-04-20] VITALS: BP 120/55; PULSE 78; RESP 17; TEMP 36.6; O2SAT 96
[2024-04-20 06:19] LABS: INR 3.5; Prothrombin Time 34.3 Seconds (9.50-12.1)
[2024-04-20 08:00] VITALS: BP 126/78; PULSE 68; RESP 20; TEMP 36.2; O2SAT 92
[2024-04-20] MEDS: DICLOFENAC SODIUM 1% 100 GM GEL (*BKC) 1 APPLIC TOPICAL ×4 (09:07→20:43)
[2024-04-20] MEDS: HYDROcodone/acetaminophen (*CRX) 5-325 MG TABLET 1 TAB PO ×2 (09:27→16:40)
[2024-04-20] MEDS: VENLAFAXINE HCL XR 75 MG CAP.ER.24H 150 MG PO (09:28)
[2024-04-20] MEDS: methiMAzole 5 MG TAB PO (09:28)
[2024-04-20] MEDS: CINACALCET 15 EACH PO (09:28)
[2024-04-20] MEDS: CYANOCOBALAMIN 1,000 MCG TABLET 1000 MCG PO (09:29)
[2024-04-20 09:31] VITALS: PULSE 64
[2024-04-20] MEDS: SOTALOL HCL 40 MG TABLET PO (09:31)
[2024-04-20] MEDS: GABAPENTIN 300 MG CAPSULE PO ×2 (09:31→20:43)
[2024-04-20] MEDS: BENZONATATE 100 MG CAPSULE 200 MG PO ×3 (09:31→19:49)
[2024-04-20] MEDS: FAMOTIDINE 20 MG TABLET PO ×2 (09:31→20:43)
[2024-04-20] MEDS: FUROSEMIDE 20 MG TABLET PO (09:31)
[2024-04-20] MEDS: CHOLECALCIFEROL 1,000 UNITS TABLET 1000 UNITS PO (09:32)
[2024-04-20 15:41] VITALS: BP 136/74; PULSE 76; RESP 18; TEMP 36.6; O2SAT 96
[2024-04-20] MEDS: WARFARIN (*PBKC) 2 MG TABLET 6 MG PO (16:40)
[2024-04-20 20:00] VITALS: RESP 20; O2SAT 96
[2024-04-20] MEDS: MELATONIN 5 MG TABLET PO (20:43)
[2024-04-20] MEDS: POTASSIUM CHLORIDE 10 MEQ ER TABLET PO (20:43)
[2024-04-20] MEDS: SIMVASTATIN 10 MG TABLET PO (20:44)
[2024-04-21] VITALS: BP 132/62; PULSE 76; RESP 20; TEMP 36.4; O2SAT 95
[2024-04-21 05:45] LABS: INR 5.8; Prothrombin Time 54.1 Seconds (9.50-12.1)
--- NOTE | 2024-04-21 07:54 | PM.EVENT ---
Event Note Event Note Event Note: INR 5.3 will hold Coumadin 04/21 and resume at 7mg Daily pending INR 04/22
[2024-04-21 08:00] VITALS: BP 164/86; PULSE 93; RESP 16; TEMP 35.8; O2SAT 92
[2024-04-21 09:58] VITALS: PULSE 88
[2024-04-21] MEDS: CHOLECALCIFEROL 1,000 UNITS TABLET 1000 UNITS PO (09:58)
[2024-04-21] MEDS: SOTALOL HCL 40 MG TABLET PO (09:58)
[2024-04-21] MEDS: CINACALCET 15 EACH PO (09:58)
[2024-04-21] MEDS: VENLAFAXINE HCL XR 75 MG CAP.ER.24H 150 MG PO (09:58)
[2024-04-21] MEDS: CYANOCOBALAMIN 1,000 MCG TABLET 1000 MCG PO (09:58)
[2024-04-21] MEDS: methiMAzole 5 MG TAB PO (09:58)
[2024-04-21] MEDS: FAMOTIDINE 20 MG TABLET PO ×2 (09:59→20:11)
[2024-04-21] MEDS: DICLOFENAC SODIUM 1% 100 GM GEL (*BKC) 1 APPLIC TOPICAL ×4 (09:59→20:10)
[2024-04-21] MEDS: GABAPENTIN 300 MG CAPSULE PO ×2 (09:59→20:10)
[2024-04-21] MEDS: FUROSEMIDE 20 MG TABLET PO (09:59)
[2024-04-21] MEDS: BENZONATATE 100 MG CAPSULE 200 MG PO ×3 (10:00→20:10)
[2024-04-21] MEDS: HYDROcodone/acetaminophen (*CRX) 5-325 MG TABLET 1 TAB PO ×2 (10:01→18:30)
[2024-04-21] MEDS: guaiFENesin/DEXTROMETHORPHAN 5 ML UDC PO (15:12)
[2024-04-21] MEDS: ACETAMINOPHEN 325 MG TABLET 650 MG PO (15:13)
[2024-04-21 16:00] VITALS: BP 125/51; PULSE 79; RESP 16; TEMP 36.3; O2SAT 94
[2024-04-21 20:00] VITALS: PULSE 97; RESP 17; O2SAT 97
[2024-04-21] MEDS: ALPRAZolam (*CRX) 0.25 MG TABLET PO (20:11)
[2024-04-21] MEDS: POTASSIUM CHLORIDE 10 MEQ ER TABLET PO (20:11)
[2024-04-21] MEDS: SIMVASTATIN 10 MG TABLET PO (20:11)
[2024-04-21] MEDS: MELATONIN 5 MG TABLET PO (20:11)
[2024-04-22] VITALS: BP 149/85; PULSE 97; RESP 17; TEMP 36.4; O2SAT 97
[2024-04-22 06:22] LABS: Prothrombin Time 53.4 Seconds (9.50-12.1)
[2024-04-22 06:24] LABS: INR 5.7
[2024-04-22 08:00] VITALS: BP 128/64; PULSE 88; RESP 16; TEMP 36.9; O2SAT 97
[2024-04-22] MEDS: VENLAFAXINE HCL XR 75 MG CAP.ER.24H 150 MG PO (09:38)
[2024-04-22] MEDS: HYDROcodone/acetaminophen (*CRX) 5-325 MG TABLET 1 TAB PO (09:38)
[2024-04-22] MEDS: FAMOTIDINE 20 MG TABLET PO (09:38)
[2024-04-22] MEDS: methiMAzole 5 MG TAB PO (09:38)
[2024-04-22 09:39] VITALS: PULSE 88
[2024-04-22] MEDS: GABAPENTIN 300 MG CAPSULE PO (09:39)
[2024-04-22] MEDS: SOTALOL HCL 40 MG TABLET PO (09:39)
[2024-04-22] MEDS: CINACALCET 15 EACH PO (09:39)
[2024-04-22] MEDS: CHOLECALCIFEROL 1,000 UNITS TABLET 1000 UNITS PO (09:39)
[2024-04-22] MEDS: CYANOCOBALAMIN 1,000 MCG TABLET 1000 MCG PO (09:39)
[2024-04-22] MEDS: FUROSEMIDE 20 MG TABLET PO (09:39)
[2024-04-22] MEDS: DICLOFENAC SODIUM 1% 100 GM GEL (*BKC) 1 APPLIC TOPICAL ×2 (09:41→13:29)
[2024-04-22] MEDS: BENZONATATE 100 MG CAPSULE 200 MG PO ×2 (09:43→13:28)
--- NOTE | 2024-04-22 10:16 | P.DS_ITS ---
DS: Admitting Diagnosis Discharge Date 04/22/2024 Admitting Diagnosis REHAB/COVID DS: Discharge Diagnosis Discharge Diagnosis (1) Congestive heart failure: Code(s): I50.9 - Heart failure, unspecified Status: Acute Assessment and Plan: * Resume Lasix (2) HTN (hypertension): Qualifiers: Hypertension type: primary hypertension Qualified Code(s): I10 - Esse ntial (primary) hypertension Code(s): I10 - Essential (primary) hypertension Status: Acute Assessment and Plan: * continue sotalol (3) Paroxysmal A-fib: Code(s): I48.0 - Paroxysmal atrial fibrillation Status: Acute Assessment and Plan: * Rate currently well controlled. * Continue Warfarin and sotalol 40 mg daily. * INR 5.7 hold repeat INR 03/25 resume 6mg if under 3.5 (4) Hyperlipidemia: Qualifiers: Hyperlipidemia type: mixed hyperlipidemia Qualified Code(s): E78.2 - Mixed hyperlipidemia Code(s): E78.5 - Hyperlipidemia, unspecified Status: Acute Assessment and Plan: * Resume statin. (5) Physical deconditioning: Code(s): R53.81 - Other malaise Status: Acute Assessment and Plan: Home Health (6) Mechanical heart valve present: Code(s): Z95.2 - Presence of prosthetic heart valve Status: Acute Assessment and Plan: * INR 5.7 hold repeat INR 03/25 resume 6mg if under 3.5 (7) Diabetes: Code(s): E11.9 - Type 2 diabetes mellitus without complications Status: Acute Assessment and Plan: * Holding weekly Ozempic * Diabetic diet * Optimize Braxton inhibitors and statins. * Watch for hypoglycemia/hypoglycemic protocol ordered (8) Chronic kidney disease: Code(s): N18.9 - Chronic kidney disease, unspecified Status: Acute Assessment and Plan: * Avoid nephrotoxic drugs. * Monitor antihypertensive drug therapy. * Avoid NSAIDs. * Routine CMP monitoring GFR. * Monitor electrolytes especially potassium. L (9) COPD (chronic obstructive pulmonary disease): Code(s): J44.9 - Chronic obstructive pulmonary disease, unspecified Status: Chronic Assessment and Plan: * Oxygen PRN * Ozzy p.r.n. (10) COVID: Code(s): U07.1 - COVID-19 Status: Acute Assessment and Plan: RESOLVED Plan Disposition: Discharged home with home health DS: Summary Hospital Course Reason for hospitalization: REHAB/COVID Hospital Course: Patient is a 78-year-old female who was admitted to [facility] for cont inued rehabilitation after her recent hospitalization had [facility] for atrial fibrillation with RVR, pneumonia, acute on chronic heart failure exacerbation, AC induced hypercoagulability with hematoma of abdominal wall. Patient also has a past medical history of hypertension mechanical aortic valve, COPD, CKD, diabtes, and hyperlipidemia initial plan was for patient to go to an acute rehab facility however patient did test positive for COVID on day of discharge which that current facility was not accepting COVID positive patients patient was then transferred over to [facility] for continued rehabilitation. patient at time of assessment denied any chest pain, shortness a breath, nausea, vomiting no active signs of bleeding dizziness or visual changes. patient continued to improve with endurance and strength training with physical and occupational therapy her COVID had resolved patient back to room air. did have some difficulty controlling patient's INR during hospitalization and she had multiple adjustments to her Coumadin at time of discharge patient's INR was 5.7 she was instructed she will need to hold her Coumadin dosing for the next 2 days with plans of a follow-up INR and order given for Tuesday 04/25 she was instructed if INR was less than 3.5 she could resume her 6 mg of Coumadin however I did the message with patient's primary care physician who follows her INR dosing for continued follow-up I also recommended an INR monitoring system for at home. Patient is seen and assessed on day of discharge in no acute distress she was educated on the need for fall prevention and to remove any hazardous items understood she is at high risk for bleeding due to high INR and Coumadin use and if at any time she were to fall and strike her head she would need to seek immediate medical assistance evaluation. patient was discharged home via private car with son we will need to follow up with her primary care provider as instructed. patient acknowledged and agreed with discharge plan. Status at Discharge Functional status at discharge: uses cane/walker Time Spent with Patient Time attestation: Total time spent providing and/or coordinating discharge services: Time spent: Greater than 30 minutes Exam Narrative: * GENERAL: Alert and oriented x 3. Frail appearing female No acute distress. * EYES: PERRLA. * HEENT: Moist mucous membranes. * LUNGS: Clear to auscultation bilaterally. No accessory muscle use. * CARDIOVASCULAR: Regular rate and rhythm. S1-S2 * ABDOMEN: Soft, non tenderness and non-distended. No palpable masses. * EXTREMITIES: No edema. Non-tender * SKIN: No rashes or lesions. Skin warm, dry. * NEUROLOGIC: No focal neurological deficits. CN II-XII grossly intact * PSYCHIATRIC: Appropriate mood and affect. Good judgement and insight. DS: Data Data Completed and Pending Labs on day of discharge: Labs from last 24 hours 04/22/24 05:39 PT 53.4 H INR 5.7 H* Discharge Plan Discharge Attending physician on discharge: Marco Maher Discharging Clinician: Diana Paredes Anticipated Discharge Date/Time: 04/22/24 10:02 Patient Disposition: Home Health Service Activity: may shower and as tolerated Diet: heart healthy and other - see discharge instructions Discharge Instructions: Per Care Coordination: [facility] will continue PT, OT and some nursing at your home. Their phone number is [phone]. They are waiting on your insurance authorization before coming. They will call you with date and time they plan to arrive. Mechanical valve and Coumadin * Your current INR was 5.7 you will need to hold your Coumadin 04/23 and 04/24 I have included an order for and follow-up INR to be done on 04/25/24 if INR is 3.5 or below you may resume the prescribed dosing of your Coumadin. * I have contacted your Primary care physician regarding your INR and results can be called to him for further dosing changes * I would recommend a INR monitoring system for home use Falls: * You are high risk for injury and bleeding please be aware of your surroundings and remove rugs or trip hazards * continue to work with physical therapy for strength training and endurance * if you are to fall and hit her head seek immediate medical attention to be evaluated due to your high risk of bleeding How can you care for yourself at home? ? Keep track of any new symptoms or changes in your symptoms. ? Rest until you feel better. ? Be safe with medicines. Take your medicines exactly as prescribed. Call your doctor if you think you are having a problem with your medicine. ? Do not drive after taking a prescription pain medicine. ? Ensure to follow-up with primary care physician as indicated and provide updated medication list provided to you at discharge. When should you call for help? Call 911 anytime you think you may need emergency care. For example, call if: ? You passed out (lost consciousness). Call your doctor now or seek immediate medical care if: ? You have new symptoms like fever, difficulty breathing, Chest pain, vomiting, or rash. ? You have new or different pain. ? You are confused and are having trouble thinking clearly. ? Your symptoms are getting worse. Watch closely for changes in your health, and be sure to contact your doctor if: ? You do not get better as expected. Patient Instructions: Antibiotic Form, Warfarin (By mouth), Elevated INR (DC), Fall Prevention (DC), Physical Activity for Older Adults (GEN) Patient Language: Romansh Stand Alone Forms: General Discharge Information Follow-up/Referrals: Darin,DO Sanjeev [Primary Care Provider] - Discharge Medications: New sotalol 80 mg tablet 40 mg PO DAILY Qty: 30 0RF Continued Ozempic 0.25 mg or 0.5 mg (2 mg/3 mL) pen injector 0.5 mg subcut WEEKLY simvastatin 10 mg PO HS cholecalciferol (vitamin D3) 1,000 units PO DAILY cyanocobalamin (vitamin B-12) 1,000 mcg capsule 1,000 mcg PO DAILY Qty: 30 0RF venlafaxine 150 mg Capsule,Extended Release 24hr 150 mg PO DAILY gabapentin 300 mg Capsule 300 mg PO Q12H potassium chloride 10 mEq tablet extended release 10 meq PO HS furosemide 20 mg tablet 20 mg PO DAILY hydrocodone-acetaminophen 5-325 mg tablet 1 - 2 tablet PO Q6H PRN (Reason: Pain) omeprazole 40 mg capsule,delayed release(DR/EC) 40 mg PO DAILY alprazolam 0.5 mg tablet 0.25 mg PO HS PRN (Reason: Anxiety) methimazole 5 mg tablet 5 mg PO DAILY cinacalcet 30 mg tablet 15 mg PO DAILY polyethylene glycol 3350 [Miralax] 17 gram Powder In Packet 17 g PO QAM Qty: 30 0RF levalbuterol HCl 1.25 mg/3 mL Solution For Nebulization 1.25 mg inhalation Q6HRT Qty: 30 0RF melatonin 5 mg Tablet 5 mg PO HS Qty: 30 0RF Held warfarin 6 mg tablet 6 mg PO DAILY Hold Instructions: Resume on 04/25/24. Hold pending INR on 03/25 if below 3.5 may resume Discontinued Mucinex DM 30-600 mg Tablet Extended Release 12 Hr 2 tab PO Q12HR Qty: 30 0RF Other Ambulatory Orders: Prothrombin Time INR (Routine) Timeframe: 20240425 Location: Determined by Patient Ordered By: Diana Paredes Date of admission: 04/08/24 18:15 Primary Care Provider: Darin,Sanjeev Admitting Provider: Marco Maher Attending physician on admission: Diana Paredes Condition: Stable Quality VTE Prophylaxis VTE prophylaxis: pharmacologic ordered -Patient's previous records reviewed on admission -ER notes reviewed in detail on admission -discussed all findings and current treatment plan with patient/Family/POA -Consultations reviewed for recommendations -Patient's disposition for safe discharge discussed with manager case management Dictation performed by [employer] direct speech recognition software, therefore chute builder variants and typographical errors may occur. Hospitalist MIPS Heart Failure (Exclusion) Patient has history of Heart Transplant or Left Ventricular Assistive Device?: No IF YES, STOP HERE Heart Failure (Qualifier) Patient has current or prior documentation of LVEF less than or equal to 40%, or mod/servere depressed LVSF?: No IF NO, STOP HERE
[2024-04-22] MEDS: ONDANSETRON HCL ODT 4 MG TABLET PO (13:28)
--- NOTE | 2024-04-22 16:45 | PC.NURSE ---
Discharge instructions reviewed with patient and his family. All questions answered. Pt transported via wheelchair and assisted into private vehicle.
--- NOTE | 2024-04-26 12:44 | PC.NURSE ---
Discharge call back completed, feeling weak, but doesn't have any questions regarding dc instructions
== END 2024-04-22 16:45 | disposition home health service (06) | DRG 947 ==
PROVIDERS: Nurse Practitioner Acute Care; Admitting Provider Internal Medicine; PCP Student in an Organized Health Care Education/Training Program; Visit Provider Nurse Practitioner Family
DX: R53.81 Other malaise (principal); J18.9 Pneumonia, unspecified organism; U07.1 COVID-19; I13.0 Hypertensive heart and chronic kidney disease with heart failure and stage 1 through stage 4 chronic kidney disease, or unspecified chronic kidney disease; I50.9 Heart failure, unspecified; I48.0 Paroxysmal atrial fibrillation; N18.32 Chronic kidney disease, stage 3b; J44.9 Chronic obstructive pulmonary disease, unspecified; E11.22 Type 2 diabetes mellitus with diabetic chronic kidney disease; E78.5 Hyperlipidemia, unspecified; K58.9 Irritable bowel syndrome, unspecified; K57.30 Diverticulosis of large intestine without perforation or abscess without bleeding; E53.8 Deficiency of other specified B group vitamins; M19.90 Unspecified osteoarthritis, unspecified site; G25.81 Restless legs syndrome; G47.33 Obstructive sleep apnea (adult) (pediatric); F32.A Depression, unspecified; F41.9 Anxiety disorder, unspecified; Z79.01 Long term (current) use of anticoagulants; Z95.2 Presence of prosthetic heart valve; Z79.899 Other long term (current) drug therapy; Z87.891 Personal history of nicotine dependence
CPT/HCPCS: 36415; 80053; 82948; 85025; 85027; 85610; 94640; 97110; 97161; 97165; 97530; 97535; A9270

== ENCOUNTER 2024-05-03 19:36 | Emergency (ER) | payer OTHER, SELFPAY ==
--- NOTE | ~2024-05-03 | XR_ITS ---
EXAMINATION: XR chest 2V Exam Date/Time: 05/03/2024 21:00 STRINGING MACHINE TENDER HISTORY: pt c/o high heart rate; hx mechanical valve Comparison: 04/01/2024. RESULT: Lines, tubes, and devices: Fractured sternotomy wires which remain in stable position. Cardiac valve replacement. Lungs and pleura: Clear. Cardiomediastinal silhouette: Stable. Other: No acute osseous or upper abdominal finding. IMPRESSION: No acute cardiopulmonary process. Reviewed, dictated and finalized at location K. NGING MACHINE TENDER
[2024-05-03 19:40] VITALS: BP 92/60; PULSE 128; RESP 16; TEMP 36.3; O2SAT 98
--- OUTSIDE RECORDS SUMMARY | 2024-05-03 19:40 | XMS_ITS | Referral Summary ---
Author Organization [facility] Address [address] [place] [address] Care Team Providers Care Corrections Lieutenant Name Role Phone Juan Pablo Dominguez MD Primary Care Provider Unavailabl e Source Comments [facility],non-owned Affiliates and Associated Physician Practices is amultiple site organization consisting of ambulatory clinics and hospital sitesin [place], [place], [place] and [place]. This disclosure is being madepursuant to the Care Everywhere program and may not contain all information available regarding this patient. Last updated 17.[employer] [facility] Allergies No known active allergies Medications * [...] 67 08/11/2020 2:33 PM CDT Temperature 36.7 C (98 F) 08/11/2020 2:33 PM CDT Respiratory Rate 18 [...] 4:06 AM 08/11/2020 4:47 PM Care Teams Corrections Lieutenant Relationship Specialty Start Date End Date Juan Pablo Dominguez MD PCP - General Family Medicine 08/09/20
--- OUTSIDE RECORDS SUMMARY | 2024-05-03 19:40 | XMS_ITS | Patient Health Summary ---
Author Organization [facility] Address [address] [place] [address] Care Team Providers Care Heating And Ventilating Tender Name Role Phone Juan Pablo Dominguez MD Primary Care Provider Meghan e Note from [facility],non-owned Affiliates and Associated Physician Practices is amultiple site organization consisting of ambulatory clinics and hospital sitesin [place], [place], [place] and [place]. This disclosure is being madepursuant to the Care Everywhere program and may not contain all information available regarding this patient. Last updated 17.[facility] Allergies No known active allergies Medications [...] - 14.8 sec 08/11/2020 6:40 AM CDT [facility] INR 1.4(H) 0.9 - 1.1 08/11/2020 6:40 AM CDT [facility] Blood BLOOD SPECIMEN / Unknown Lab Venipuncture / Unknown 08/11/2020 6:14 AM CDT 08/11/2020 6:24 AM CDT Narrative [facility] - 08/11/2020 6:40 AM CDT Conventional Warfarin Anticoagulant Therapy: INR Reference Range: 2.0-3.0 Intensive Warfarin Anticoagulant Therapy: INR Reference Range: 2.5-3.5 Odette Rowland MD LAB - COAGULATION OR DERABLES [facility] [address] [place] [address] * (ABNORMAL) CBC W AUTO DIFFERENTIAL (08/11/2020 6:14 AM CDT) Only the most recent of2 resultswithin the time period is included. WBC 4.9 4.4 - 10.7 x10E9/L 08/11/2020 6:26 AM CDT [facility] WBC Corrected 08/11/2020 6:26 AM CDT [facility] RBC 3.38(L) 3.80 - 5.20 x10E12/L 08/11/2020 6:26 AM CDT [facility] Hemoglobin 11.1(L) 12.0 - 15.6 gm/dL 08/11/2020 6:26 AM CDT [facility] Hematocrit 34.6(L) 35.9 - 45.5 % 08/11/2020 6:26 AM CDT [facility] MCV 102.4(H) 80.7 - 98.3 fl 08/11/2020 6:26 AM CDT [facility] MCH 32.8 26.7 - 34.0 pg 08/11/2020 6:26 AM CDT [facility] MCHC 32.1 30.8 - 35.9 gm/dL 08/11/2020 6:26 AM CDT [facility] Platelet Count 191 153 - 416 x10E9/L 08/11/2020 6:26 [facility] RDW-CV 12.1 12.1 - 14.9 % 08/11/2020 6:26 AM [facility] MPV 12.0 9.4 - 12.9 fl 08/11/2020 6:26 [facility] Neutrophils % 52.4 44.0 - 73.0 % 08/11/2020 6:26 AM [facility] Lymphocytes % 26.0 20.0 - 43.0 % 08/11/2020 6:26 [facility] Monocytes % 16.1(H) 5.0 - 13.0 % 08/11/2020 6:26 AM [facility] Eosinophils % 4.1 0.0 - 6.0 % 08/11/2020 6:26 AM CDT [facility] Basophils % 1.4 0.0 - 2.0 % 08/11/2020 6:26 AM CDT [facility] Immature Granulocytes 0.0 0 - 1 % 08/11/2020 6:26 AM CDT [facility] Neutrophil Absolute 2.54 2.01 - 7.14 x10E9/L 08/11/2020 6:26 AM CDT [facility] Lymphocytes Absolute 1.26 1.07 - 3.94 x10E9/L 08/11/2020 6:26 AM CDT [facility] Monocytes Absolute 0.78 0.26 - 1.07 x10E9/L 08/11/2020 6:26 AM CDT [facility] Eosinophils Absolute 0.20 0 - 0.47 x10E9/L 08/11/2020 6:26 AM CDT [facility] Basophils Absolute 0.07 0 - 0.08 x10E9/L 08/11/2020 6:26 AM CDT [facility] Immature Granulocytes Absolute 0.00 0.00 - 0.06 x10E9/L 08/11/2020 6:26 AM T [facility] nRBC Auto 0 /100 WBC 08/11/2020 6:26 AM [facility] Blood BLOOD SPECIMEN / Unknown Lab Venipuncture / Unknown 08/11/2020 6:14 AM CDT 08/11/2020 6:24 AM CDT Neel Paulino DO LAB - HEMATOLOGY ORDERABLES Performing Organization Address City/State/[facility] Co de Phone Number [facility] [address] [place], [place] [id number] * (ABNORMAL) BASIC METABOLIC PANEL (CALCIUM TOTAL) (08/11/2020 6:14 AM CDT) Glucose 75 70 - 105 mg/dL 08/11/2020 6:47 AM [facility] Sodium 140 136 - 145 mmol/L 08/11/2020 6:47 AM [facility] Potassium 4.5 3.5 - 5.1 mmol/L 08/11/2020 6:47 AM [facility] Chloride 107 98 - 107 mmol/L 08/11/2020 6:47 AM T [facility] CO2 25 23 - 31 mmol/L 08/11/2020 6:47 AM T [facility] Calcium 10.0 8.4 - 10.4 mg/dL 08/11/2020 6:47 AM [facility] Anion Gap 8 8 - 18 mmol/L 08/11/2020 6:47 AM [facility] BUN 23(H) 9.8 - 20.1 mg/dL 08/11/2020 6:47 AM [facility] Creatinine 1.03 0.57 - 1.11 mg/dL 08/11/2020 6:47 AM CDT [facility] eGFR by MDRD 52 mL/min/1.7 3m2 08/11/2020 6:47 AM CDT [facility] eGFR by MDRD >60 mL/min/1.7 3m2 08/11/2020 6:47 AM CDT [facility] Blood BLOOD SPECIMEN / Unknown Lab Venipuncture / Unknown 08/11/2020 6:14 AM CDT 08/11/2020 6:25 AM CDT Neel Paulino DO LAB - CHEMISTRY O RDERABLES [facility] [address] [address] * IR CAROTID CEREBRAL ANGIOGRAM (08/10/2020 9:59 AM CDT) Anatomical Region Laterality Modality Head Other Narrative 08/10/2020 10:02 AM CDT Mane Munoz MD 08/10/2020 10:06 AM PROCEDURE PERFORMED: DIAGNOSTIC CEREBRAL [...] performed with 21-gauge micropuncture needle. A 5 Mongolian sheath was inserted over a Calendargodson wire and connected to a regulated pressurized infusion. A 5 Mongolian diagnostic catheter was advanced over the wire [...] and has a 2.2 mm wide neck. The distal right MCA branches are unremarkable and opacifying well. The right A1 BARRIE and distal BARRIE branches are unremarkable. Opacification of the left BARRIE in its entirety is noted through the anterior communicating artery. LEFT COMMON CAROTID ARTERY RUN: DSA run was obtained in SOMALI and lateral views. Left common carotid artery [...] a 2.2 mm wide neck. Natalee Solis SETTER OUT-CONTACT LENS INSPECTOR IR ORDERABLES * (ABNORMAL) COMPREHENSIVE METABOLIC PANEL (08/10/2020 5:57 AM CDT) Glucose 85 70 - 105 mg/dL 08/10/2020 6:24 AM CDT [facility] Sodium 139 136 - 145 mmol/L 08/10/2020 6:24 AM CDT [facility] Potassium 4.4 3.5 - 5.1 mmol/L 08/10/2020 6:24 AM CDT [facility] Chloride 107 98 - 107 mmol/L 08/10/2020 6:24 AM CDT [facility] CO2 26 23 - 31 mmol/L 08/10/2020 6:24 AM CDT [facility] Calcium 10.1 8.4 - 10.4 mg/dL 08/10/2020 6:24 AM CDT [facility] Anion Gap 6(L) 8 - 18 mmol/L 08/10/2020 6:24 AM CDT [facility] BUN 17 9.8 - 20.1 mg/dL 08/10/2020 6:24 [facility] Creatinine 1.15(H) 0.57 - 1.11 mg/dL 08/10/2020 6:24 AM [facility] Alkaline Phosphatase 63 40 - 150 U/L 08/10/2020 6:24 AM CDT [facility] ALT 12 0 - 61 U/L 08/10/2020 6:24 AM CDT [facility] AST 19 5 - 34 U/L 08/10/2020 6:24 AM [facility] Protein Total 6.0(L) 6.4 - 8.3 gm/dL 08/10/2020 6:24 AM CDT [facility] Albumin 3.3 3.2 - 4.6 gm/dL 08/10/2020 6:24 AM [facility] Bilirubin Total 0.4 0.2 - 1.2 mg/dL 08/10/2020 6:24 AM [facility] eGFR by MDRD 46 mL/min/1.7 3m2 08/10/2020 6:24 AM CDT [facility] eGFR by MDRD 56 mL/min/1.7 3m2 08/10/2020 6:24 AM CDT [facility] Blood BLOOD SPECIMEN / Unknown Lab Venipuncture / Unknown 08/10/2020 5:57 AM CDT 08/10/2020 6:02 AM CDT Odette Rowland MD LAB - CHEMISTRY [place] TEJEDA [facility] [address] [place] [address] * GLUCOSE - POINT OF CARE (08/09/2020 10:43 PM CDT) Glucose WB/POC 88 70 - 106 mg/dL 08/10/2020 11:37 AM CDT [facility] Specimen Type Arterial/C apillary 08/10/2020 11:37 AM CDT [facility] Blood BLOOD SPECIMEN / Unknown 08/09/2020 10:43 PM CDT 08/10/2020 11:37 AM CDT Neel Paulino DO LAB - POINT OF CA RE ORDERABLES [facility] [address] [place] [address] * EKG 12-LEAD (08/09/2020 5:33 PM CDT) Ventricular Rate 66 BPM [facility] Atrial Rate 66 BPM [facility] P-R Interval 208 ms [facility] QRS Duration ms 144 ms [facility] Q-T Interval ms 534 ms [facility] QTC Calculation (Bezet) 559 ms [facility] Calculated R Sterrett -146 degrees [facility] Calculated T Sterrett 22 degrees [facility] Interpretation EKG Suspect arm lead reversal, interpretation assumes no reversal aVR is positive Normal sinus rhythm Left bundle branch block Abnormal ECG No previous ECGs available Suggest repeat ECG and maje sure limb leads correctly applied Confirmed by MD LOPEZ PHILLIP G. ([id number]) on 08/10/2020 7:46:00 AM [facility] 08/09/2020 5:33 PM CDT 08/10/2020 7:46 AM CDT Robin Pierre Jr., MD ECG ORDERABLES [facility] * MRI BRAIN FOR STROKE (08/09/2020 [...] mastoid air cells are clear. Procedure Note bE Estrella MD - 08/09/2020 MRI Brain Without [...] on 08/09/2020 at 2:10 PM Natalee Solis SETTER OUT-CONTACT LENS INSPECTOR MR ORDERABLES * ECHOCARDIOGRAM 2D WITH DOPPLER (08/09/2020 9:00 AM CDT) 08/09/2020 9:00 AM CDT Narrative Procedure Note Robin Pierre Jr., MD - 08/09/[address] [address] Echocardiography Examination Transthoracic Name: ANA MARIA BOBO MPI#: MR#: [id number] Admission Number: [id number] Study Date: 08/09/2020 Study Time: 02:16 PM [...] to opacify the left ventricle. Facility Location: [facility] Indication: S/P AVR, Elevated troponin Procedure Insurance Administrative Assistant: Ana Maria Chance RDCS Ordering Provider: Robin Pierre MD Reading Physician: Robin Pierre MD Conclusions Left Ventricle: Left ventricle is normal in size. Systolic left ventricular function is at the lower limits of normal. EF range is 50 % -55 %. Left ventricle wall thickness is moderately increased. There are no regional wall motion abnormalities. Left ventricular diastolic function parameters are normal. IVS: There is moderate dyssynergic motion in the interventricular septum. Aortic Valve: Mild aortic regurgitation is present. There is mild aortic stenosis. Patient: ANA MARIA BOBO Study Date: 08/09/2020 02:16 PM Page 1 of 4 The aortic valve is a mechanical prosthesis. Aortic Valve Measurements AV PGmax: 40 mmHg. AV PGmean: 22 mmHg. YADIRA D (continuity eq. VTI): 1.2 cm . Tricuspid Valve Measurements RVSP: 25 mmHg. Follow up: Findings Left [...] Valve YADIRA D (continuity eq. VTI) 1.2 cm Aortic Valve YADIRA Index (continuity 0.54 cm /m eq.Vmax) Aortic Valve LVOT Vmax / AV Vmax 0.34 Interventricular septum IVSd, 2D 1.6 cm (0.6cm - 1.1cm) Left Atrium LADs, 2D 4.1 cm (2.7cm - 3.8cm) Left Atrium LA Area s, A4C 19.6 cm (0cm - 20cm ) Left Atrium LA Area s, A2C 21.6 cm (0cm - 20cm ) Left Atrium LAESV, MOD4 57 ml (22ml - 52ml) Left Atrium LAESV, MOD2 72 ml (22ml - 52ml) Left Atrium LAESV index, MOD4 28.2 ml/m Left Atrium LAESV index, MOD2 35.6 ml/m Left Ventricle LVOT Vmax 1.09 m/s (0.7m/s [...] 49ml) Left Ventricle LVEDV Index, BP 61.4 ml/m (35ml/m - 75ml/m ) Left Ventricle LVESV Index, BP 31.2 ml/m (12ml/m - 30ml/m ) Left Ventricle LVSV Index, BP 30.2 ml/m Left Ventricle LVOT PGmean 3 mmHg Left Ventricle LVOT Vmean 0.76 m/s Left Ventricle LVOT Area 3.1 cm Left Ventricle EF lower range (%) 50 [...] 4 Robin Pierre Jr., MD ECHO ORDERABLES [facility] [address] [place] [address] * GROSS + MICRO EXAM (05/12/2003 6:56 PM OPAL MINER) Result CASE NUMBER [id number] Comment: ORDERING PHYSICIAN SOLE HAYDEN SPECIMEN TYPE Heart Valve-aortic valve leaflets Date 05/13/2003 Physician Gladis Gross Description Received in formalin labeled `aortic valve leaflet' and consists of several fragments of white tissue ranging in size .2 x .2 x .1 cm. To 2.5 x 1.5 cm. The thickness of the valve varies from 0.1 to 0.5 cm. There are a few elevated areas which appear gritty on sectioning. Associate Director Financial Aid sections submitted in one cassette for decal. /[facility] Microscopic Exam Sections show cardiac valvular tissue with severe calcific atherosclerosis. Acute inflammation is not seen. No bacterial vegetations are present. MC/ Diagnosis I. Aortic valve leaflet, resection A. Severe calcific atherosclerosis. MC/ Railroad Surveyor [facility] Pathologist Carlos James M.D. Snomed. 05/15/2003 1448 <1> CPT code 22730, 63110 MISCELLANEOUS SAMPLES / Unknown 05/12/2003 6:56 PM OPAL MINER 05/12/2003 6:57 PM OPAL MINER Historical Provider MD LAB - PATHOLOGY/C YTOLOGY ORDERABLES Care Teams Heating And Ventilating Tender Relationship Specialty Start Date End Date Juan Pablo Dominguez MD PCP - General Family Medicine 08/09/20
--- OUTSIDE RECORDS SUMMARY | 2024-05-03 19:40 | XMS_ITS | Clinical Summary ---
Author Organization [facility] Address [address] [place] [address] Care Team Providers Care Supervisor Hot Dip Plating Name Role Phone Juan Pablo Dominguez MD Primary Care Provider Unavailabl e Source Comments [facility],non-owned Affiliates and Associated Physician Practices is amultiple site organization consisting of ambulatory clinics and hospital sitesin [place], [place], [place] and [place]. This disclosure is being madepursuant to the Care Everywhere program and may not contain all information available regarding this patient. Last updated 17.[facility] Allergies No known active allergies Medications * [...] history exists DEPRESSION SCREENING 03/09/2024 MEDICARE AWV CALENDAR YEAR 2024 HEPATITIS B VACCINE Aged [...] 4:06 AM 08/11/2020 4:47 PM Care Teams Supervisor Hot Dip Plating Relationship Specialty Start Date End Date Juan Pablo Dominguez MD PCP - General Family Medicine 08/09/20
--- OUTSIDE RECORDS SUMMARY | 2024-05-03 19:40 | XMS_ITS | CONTINUITY OF CARE DOCUMENT ---
Author Name gaetano salter Address Unknown Organization [facility] Address [address] [place] [address] [address] [place] [address] Phone [phone] Care Team Providers Care Customer Support Specialist Name Role Phone Wendy Dey MD Unavailable [phone] Wendy Dey MD Unavailable [phone] INSURANCE PROVIDERS Payer name Policy type / Coverage type [place] [employer] Other [id number]
--- OUTSIDE RECORDS SUMMARY | 2024-05-03 19:40 | XMS_ITS | Encounter Summary ---
Author Organization [facility] Address [address] [facility] [facility] [address] [place] [address] Care Team Providers Care Air Twister Winder Name Role Phone Hong Holder MD Primary Care Provider [phone] Hong Holder MD Primary Care Provider [phone] Juan Pablo Dominguez MD Primary Care Provider Miscellaneous, Not In File Primary Care Provider Unavailable Sanjeev Webster DO Primary Care Provide r Encounter Details Date Type Department Care Team (Late st Contact Info) Description 05/28/2016 Orders Only [facility] ProviderCasi MD [address] [place] [address] Social History Tobacco Use Types Packs/Day Years Used Date Smoking Tobacco: Never Alcohol Use Standard Drinks/Week Comments No 0 (1 standard drink = 0.6 oz pur e alcohol) Comments Unknown Sex and Gender Information Value Date Recorded Sex Assigned at Not on file Legal Sex Female 6:10 AM REIMBURSEMENT CONSULTANT Gender Identity Not on file Sexual [...] on filedocumented in this encounter Care Teams Air Twister Winder Relationship Specialty Start Date End Date Hong Holder MD [address] [place] [address] PCP - General 06/06/16 01/11/20 Hong Holder MD [address] [place] [address] PCP - General 01/15/15 06/05/16 Juan Pablo Dominguez MD [address] [place] [address] PCP - General Family Medicine 01/12/20 08/06/20 Miscellaneous, Not In File PCP - General 08/07/20 2 Sanjeev Webster DO [address] [place] [address] PCP - General Family Medicine 03/11/21 documented as of this encounter
--- OUTSIDE RECORDS SUMMARY | 2024-05-03 19:40 | XMS_ITS | Clinical Summary ---
Author Organization [facility] [address] Address [address] [place] [address] Care Team Providers Care Palliative Care Specialist Name Role Phone Sanjeev Webster DO Primary Care Provide r Allergies Active Allergy Reactions Criticality Noted Date Comments Atorvastatin Muscle pain,Other (See comments) High 08/12/2021 Leg pain/cramps. Resolved after stopping. Bacitracin Benzalkonium Cortisone Rash,Unknown High 08/02/2023 Gramicidin D Hydrocortisone Neomycin Jiudrtmx-Crkkpmfsre-Ugpid yxin Other (See comments) Low 07/31/2020 It [...] monitor 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 toxicity with director long term care u se 05/06/2019 Coronary artery disease invo lving newtok coronary artery of newtok heart without angina pectoris 05/06/2019 Abnormal stress [...] Encounters Date Type Department Care Team Description 05/03/2024 Telephone [facility] Cardiology [address] [place] [phone] Paxton Villela MD Atrial Fibrillation 02/29/2024 10:30 AM GOSPEL SINGER Office Visit [facility] Cardiology [address] [place] [address] Paxton Villela MD History of mechanical aortic valve replacement (Primary Dx); Hypertension associated with diabetes (HCC); Coronary artery disease involving newtok coronary artery of newtok heart without angina pectoris; LBBB (left bundle [...] on file Legal Sex Female 6:10 AM GOSPEL SINGER Gender Identity Not on file Sexual Orientation Not on file Obstetrics History Last Filed Vital Signs Vital Sign Reading Time Taken Comments Blood Pressure 90/64 02/29/2024 10:36 AM GOSPEL SINGER Pulse 68 02/29/2024 10:36 AM GOSPEL SINGER Temperature 36.6 C (97.8 F) 08/17/2020 12:52 AM CDT Respiratory Rate 20 08/17/2020 12:52 AM CDT Oxygen Saturation 98% 02/29/2024 10:36 AM GOSPEL SINGER Inhaled Oxygen Concentration - - Weight 79.8 kg (176 lb) 02/29/2024 10:36 AM GOSPEL SINGER Height 165.1 cm (5' 5 ) 02/29/2024 10:36 AM GOSPEL SINGER Body Mass Index 29.29 02/29/2024 10:36 AM GOSPEL SINGER Plan of Treatment Health Maintenance Due Date [...] LUGO Comment: Interpretive Data Reference Interval Normal >/= 90 mL/min/1.73m2 Mildly decreased* 60 - 89 mL/min/1.73m2 Mildly to moderately decreased 45 - 59 mL/min/1.73m2 Moderately to severely decreased 30 - 44 mL/min/1.73m2 Severely decreased 15 - 29 mL/min/1.73m2 Kidney Failure < 15 mL/min/1.73m2 *Relative to young adult level Estimated glomerular [...] LAB BLOOD ORDERABLES Final Resul t [facility] Department [place] [address] * (ABNORMAL) Hemoglobin A1c (08/14/2020 9:38 AM CDT) Hgb A1C 6.0(H) 4.0 - 5.6 % [facility] Estimated Average Glucose 126 mg/dL [facility] Comment: The ADA recommends reporting an estimated Average Glucose (eAG) with all Hemoglobin A1c results using the equation derived from a study of 507 normal and diabetic adults. Minority populations were underrepresented and children were not included. (Diabetes Care 31:3699-6890, 2008). The eAG is not equivalent to a fasting glucose. Blood specimen (specimen) 08/14/2020 9:38 AM CDT 08/14/2020 9:54 AM CDT us Amparo Vergara MD LAB BLOOD ORDERABLES Final Resul t [facility] [address] [facility] Department [place] [address] from Last 3 Months or Most Recently Relevant to Health Maintenance Insurance [facility] Advance Directives For more information, please contact: [phone] Documents on File Type Date Recorded Patient Process Engineer Expl anation ADVANCE DIRECTIVE 09/04/2020 1:26 PM [facility] ADVANCE DIRECTIVE 09/03/2020 12:52 PM ADVANCE DIRECTIVE 08/16/2020 11:40 AM OUTS [facility] * Full Code (Latest Code Status on File) Date Activated Date Inactivated Comments 08/11/2020 6:08 PM 08/17/2020 5:34 PM Care Teams Palliative Care Specialist Relationship Specialty Start Date End Date Sanjeev Webster DO [address] [place] [address] PCP - General Family Medicine 03/11/21
--- OUTSIDE RECORDS SUMMARY | 2024-05-03 19:40 | XMS_ITS | Encounter Summary ---
Author Organization [facility] Address [address] [place] [address] Care Team Providers Care Paint Supervisor Name Role Phone Sanjeev Webster Primary Care Provide r Reason for Visit * Reason Onset Date Comments Atrial Fibrillation 05/03/2024 Encounter Details Date Type Department Care Team (Late st Contact Info) Description 05/03/2024 Telephone [facility] Cardiology [address] [facility] [address] [place] [address] Paxton Villela MD [facility] [place] [address] Atrial Fibrillation Social History Tobacco Use Types Packs/Day Years [...] on file Legal Sex Female 6:10 AM MANAGER MECHANICAL MAINTENANCE Gender Identity Not on file Sexual Orientation Not on file documented as of this encounter Miscellaneous Notes * Telephone Encounter - Paxton Villela MD - 05/03/2024 5:18 PM MANAGER MECHANICAL MAINTENANCE Please bring her for 48 hour holter. GER MECHANICAL MAINTENANCE * Telephone Encounter - Dov Richards RN - 05/03/2024 3:29 PM MANAGER MECHANICAL MAINTENANCE Spoke with Natalee HUNTER. Pt was sent home but PCP was wanting to make sure we had received the EKG. Advised that we had received it and forwarded it to JF for review, and that we would reach out to patient directly if needed. Natalee HUNTER stated that pt was recently hospitalized for nearly a month and did not want to go to ED when they spoke in office, as she is asymptomatic and does not want to go back to the hospital. Also stated that their office would reach out to pt at end of day and advise going to the ED if our office has not contacted pt by then. GER MECHANICAL MAINTENANCE * Telephone Encounter - Sherron Bucio - 05/03/2024 3:19 PM CST DALE Albright from Dr. Webster's office calling to speak with DALE Chi. Requesting a call back on their backline. Please advise. Thank you. Contact [phone] GER MECHANICAL MAINTENANCE * Telephone Encounter - Dov Richards RN - 05/03/2024 12:41 PM MANAGER MECHANICAL MAINTENANCE Spoke with DALE Albright from PCP office. EKG being faxed to our office. Pt reports no symptoms at thistime. Advised that I would forward EKG and note to Dr. Villela once received and that we would reach out to pt with any additional instructions. please advise on EKG sent via media. Thanks! GER MECHANICAL MAINTENANCE GER MECHANICAL MAINTENANCE * Telephone Encounter - Sherron Bucio - 05/03/2024 12:22 PM CST DALE Albright from Dr. Webster's office states that this mutual pt is currently in office and they just performed an ECG and believes she's in a-fib with rvr. Requesting a call back as soon as possible. Please advise. Thank you. Contact [phone] (backline) GER MECHANICAL MAINTENANCE documented in this encounter Plan of Treatment Not on file documented as of this encounter Visit Diagnoses Not on filedocumented in this encounter Care Teams Paint Supervisor Relationship Specialty Start Date End Date Sanjeev Webster DO [address] [place] [address] PCP - General Family Medicine 03/11/21 documented as of this encounter
--- OUTSIDE RECORDS SUMMARY | 2024-05-03 19:40 | XMS_ITS | Clinical Summary ---
Author Organization [facility] Address [address] [place] [address] Phone Care Team Providers Care Inside Barrel Polisher Name Role Phone Sanjeev Webster DO Primary Care Provider + Blade Phillips MD Unavailable [phone] Allergies Active Allergy Reactions Criticality Noted Date [...] 68 11/20/2023 1:27 PM CDT Temperature 36.5 C (97.7 F) 11/20/2023 1:27 PM CDT Respiratory Rate 18 11/20/2023 1:27 PM CDT [...] topic Insurance MEDICARE C ESSENCE Care Teams Inside Barrel Polisher Relationship Specialty Start Date End Date Sanjeev Webster DO [address] [place] [address] PCP - General Family Medicine 09/14/23 Blade Phillips MD [address] [place] [phone] Oncology 09/14/23
--- OUTSIDE RECORDS SUMMARY | 2024-05-03 19:40 | XMS_ITS | Referral Summary ---
Author Organization [facility] [address] [place] [address] Address [address] [facility] [address] [place] [address] Care Team Providers Care Tar Processing Technician Name Role Phone Sanjeev Webster DO Primary Care Provide r Encounters Date Type Department Care Team Description 05/03/2024 Telephone [facility] Medical Group Cardiology [address] [facility] [address] [place] [address] Paxton Villela MD Atrial Fibrillation 02/29/2024 10:30 AM IP PARALEGAL Office Visit [facility] Medical [facility] Cardiology [address] [place] [address] [address] [place] [address] Paxton Villela MD History of mechanical aortic valve replacement (Primary Dx); Hypertension associated with diabetes (HCC); Coronary artery disease involving [place] coronary artery of [place] heart without angina pectoris; LBBB (left bundle branch block); Persistent atrial fibrillation (HCC); Hypertensive heart disease with congestive heart failure, unspecified heart failure type (HCC) from Last 3 Months Allergies Active Allergy Reactions Criticality Noted Date Comments Atorvastatin Muscle pain,Other (See comments) High 08/12/2021 Leg pain/cramps. Resolved after stopping. Bacitracin Benzalkonium Cortisone Rash,Unknown High 08/02/2023 Gramicidin D Hydrocortisone Neomycin Ghkevmvc-Tyjzbfrgwv-Zggsq yxin Other (See comments) Low 07/31/2020 It [...] monitor 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 toxicity with retirement u se 05/06/2019 Coronary artery disease invo lving [place] coronary artery of [place] heart without angina pectoris 05/06/2019 Abnormal stress test 05/06/2019 Bradycardia 05/06/2019 LBBB (left bundle branch block) 12/08/2018 Myopathy 02/17/2018 Paroxysmal atrial flutter ([facility]/HCC) 08/12/2017 Assessment & Plan (08/14/2020 8:04 AM [...] a associated with type 2 diabetes mellitus ([facility]) 07/16/2015 Overview (06/13/2016): DM type 2 [...] on file Legal Sex Female 6:10 AM IP PARALEGAL Gender Identity Not on file Sexual Orientation Not on file Last Filed Vital Signs Vital Sign Reading Time Taken Comments Blood Pressure 90/64 02/29/2024 10:36 AM IP PARALEGAL Pulse 68 02/29/2024 10:36 AM IP PARALEGAL Temperature 36.6 C (97.8 F) 08/17/2020 12:52 AM CDT Respiratory Rate 20 08/17/2020 12:52 AM CDT Oxygen Saturation 98% 02/29/2024 10:36 AM IP PARALEGAL Inhaled Oxygen Concentration - - Weight 79.8 kg (176 lb) 02/29/2024 10:36 AM IP PARALEGAL Height 165.1 cm (5' 5 ) 02/29/2024 10:36 AM IP PARALEGAL Body Mass Index 29.29 02/29/2024 10:36 AM IP PARALEGAL Plan of Treatment Not on file Procedures [...] LAB BLOOD ORDERABLES Final Resul t [facility] [address] [facility] Department [place] [address] * (ABNORMAL) Hemoglobin A1c (08/14/2020 [...] and children were not included. (Diabetes Care [id number], 2008). The eAG is not equivalent to a fasting glucose. Blood specimen (specimen) 08/14/2020 9:38 AM CDT 08/14/2020 9:54 AM CDT Amparo Vergara MD LAB BLOOD ORDERABLES Final Resul t [facility] [address] [facility] Department [place] [address] from Last 3 Months or Most Recently Relevant to Health Maintenance Insurance [facility] HE[facility]CARE [facility] HEALTHCARE [facility] Advance Directives For more information, please contact: [phone] Documents on File Type Date Recorded Patient Store Operations Associate Expl anation ADVANCE DIRECTIVE 09/04/2020 1:26 PM OUTSI DE [facility] DNR ADVANCE DIRECTIVE 09/03/2020 12:52 PM ADVANCE DIRECTIVE 08/16/2020 11:40 AM OUTS [facility] DNR * Full Code (Latest Code Status on File) Date Activated Date Inactivated Comments 08/11/2020 6:08 PM 08/17/2020 5:34 PM Care Teams Tar Processing Technician Relationship Specialty Start Date End Date Sanjeev Webster DO [address] [place] [id number] PCP - General Family Medicine 03/11/21
--- NOTE | 2024-05-03 19:45 | ECG_ITS ---
Test Date: 2024-05-03 19:49:55 Measurements Intervals [place] Rate: 129 P: -40 VA: 213 QRS: -48 QRSD: 136 T: 124 QT: 328 QTc: 481 Interpretive Statements ATRIAL FLUTTER/TACHYCARDIA WITH RAPID VENTRICULAR RESPONSE VENTRICULAR PREMATURE COMPLEXES LEFT AXIS DEVIATION LEFT BUNDLE BRANCH BLOCK BASELINE ARTIFACT- I, II, AVR, AVL ABNORMAL ECG Compared to ECG 04/01/2024 21:11:06 NO SIGNIFICANT CHANGE Electronically Signed On 05-04-2024 07:07:33 SALES PLANNING MANAGER by Emil Farrell D.O.
[2024-05-03 20:21] LABS: Basophils Absolute Auto 0.1 K/mm3 (0.0-0.1); Basophils Percent Auto 1.6 % (0.2-1.2); Eosinophils Absolute Auto 0.3 K/mm3 (0-0.3); Eosinophils Percent Auto 5.1 % (0-4.4); Hematocrit 34.9 % (37.0-47.0); Immature Granulocyte Absolute 0.01 K/mm3 (0.00-0.031); Immature Granulocyte Percent A 0.2 % (0-0.5); Lymphocytes Absolute Auto 1.71 K/mm3 (0.9-3.2); Lymphocytes Percent Auto 30.2 % (18.3-44.2); Mean Corpuscular HGB Conc 31.5 g/dl (32-36); Mean Corpuscular Hemoglobin 32.9 pg (26-34); Mean Corpuscular Volume 104.5 fl (80-100); Mean Platelet Volume 12.2 fl (7.4-10.4); Monocytes Absolute Auto 0.7 K/mm3 (0.1-0.6); Monocytes Percent Auto 11.8 % (2.6-8.5); Neutrophils Absolute Auto 2.9 K/mm3 (1.3-6.7); Neutrophils Percent Auto 51.1 % (45.5-73.1); Platelet Count Result 243 k/mm3 (150-375); Red Blood Count 3.34 M/mm3 (4.2-5.4); Red Cell Distribution Width 14.4 % (11.5-14.5); White Blood Count 5.7 K/mm3 (4.5-10.0)
[2024-05-03 20:33] LABS: INR 1.9; Prothrombin Time 22.3 Seconds (11.1-14.7)
[2024-05-03 20:35] LABS: Alanine Aminotransferase 12 U/L (6-35); Albumin Level 3.6 g/dL (3.5-5.1); Alkaline Phosphatase 65 U/L (38-126); Anion Gap 8 mmol/L (4-12); Aspartate Amino Transferase 25 U/L (14-36); Bilirubin,Total 0.5 mg/dL (0.2-1.3); Blood Urea Nitrogen 14 mg/dL (7-17); Calcium 10.1 mg/dL (8.4-10.2); Carbon Dioxide 29 mmol/L (22-30); Chloride 102 mmol/L (98-107); Estimated CRCL calculation 44 ml/min; Estimated Glomerular Filt Rate 58; Glucose 134 mg/dL (65-110); Lipase 129 U/L (23-300); Potassium 3.8 mmol/L (3.4-5.0); Sodium 139 mmol/L (137-145)
[2024-05-03 20:36] LABS: Partial Thromboplastin Time 54.3 Seconds (22.3-36.8)
[2024-05-03 20:49] LABS: Troponin I 0.021 ng/mL (0.000-0.034)
[2024-05-03 23:28] LABS: Troponin I 0.022 ng/mL (0.000-0.034)
[2024-05-04] VITALS (7 sets, daily range): BP systolic 99–132; BP diastolic 61–88; PULSE 69–125; RESP 14–18; O2SAT 96–99
--- NOTE | 2024-05-04 03:54 | ED_ITS ---
HPI - General Adult General Chief complaint: Recheck/Abnormal Lab/Rx Stated complaint: my heart is out of rhythm Time Seen by Provider: 05/04/24 03:45 History of Present Illness HPI narrative: 78-year-old female present to the emergency department for evaluation for heart palpitations. Patient does have history of hypertension, high cholesterol, AFib with RVR and is on sotalol, COPD. Patient also has history of mechanical aortic valve, chronic kidney disease, diabetes. Patient had been recently admitted [facility] and transferred over to [facility]. Patient feels that her heart rate has been increased over the last few days. Patient denies any associated chest pain or shortness of breath. Patient is on sotalol and believes he takes this in the morning. Related Data Home Medications ?Medication ?Instructions ?Recorded ?Confirmed ?Last Taken ?Type gabapentin 300 mg capsule 300 mg PO Q12H 01/09/19 04/08/24 04/08/24 08:30 History venlafaxine 150 mg 150 mg PO DAILY 01/09/19 04/08/24 04/08/24 08:30 History capsule,extended release 24 hr furosemide 20 mg tablet 20 mg PO DAILY 03/18/22 04/08/24 12/12/23 History potassium chloride 10 mEq 10 meq PO HS 03/18/22 04/08/24 04/07/24 21:39 History tablet,extended release cholecalciferol (vitamin D3) 1,000 units PO DAILY 08/23/23 04/08/24 04/08/24 08:30 History simvastatin 10 mg PO HS 08/23/23 04/08/24 04/07/24 21:50 History alprazolam 0.5 mg tablet 0.25 mg PO HS PRN Anxiety 11/01/23 04/08/24 04/03/24 20:45 History hydrocodone 5 mg-acetaminophen 325 1 - 2 tablet PO Q6H PRN Pain 11/01/23 04/08/24 04/08/24 08:30 History mg tablet omeprazole 40 mg capsule,delayed 40 mg PO DAILY 11/01/23 04/08/24 04/08/24 08:30 History release semaglutide 0.25 mg or 0.5 mg (2 0.5 mg subcut WEEKLY 11/12/23 04/08/24 Unknown History mg/3 mL) subcutaneous pen injector (Moki[employer]tv) cinacalcet 30 mg tablet 15 mg PO DAILY 12/13/23 04/08/24 04/08/24 11:10 History methimazole 5 mg tablet 5 mg PO DAILY 12/13/23 04/08/24 04/08/24 08:30 History warfarin 6 mg tablet 6 mg PO DAILY 03/08/24 04/08/24 04/08/24 17:40 History Allergies Allergy/AdvReac Type Severity Reaction Status Date / Time adhesive tape Allergy Intermediate Blister Verified 05/03/24 19:44 cortisone Allergy Intermediate Rash Verified 05/03/24 19:44 bacitracin Allergy Mild Rash Verified 05/03/24 19:44 neomycin Allergy Mild Rash Verified 05/03/24 19:44 polymyxin B Allergy Mild Rash Verified 05/03/24 19:44 Review of Systems 2 Review of Systems: All systems reviewed & are unremarkable except as noted in HPI and below PMFSH Past Medical History Medical History Irritable bowel syndrome Gallbladder disorder Arthritis Vitamin B12 deficiency Atrial fibrillation with slow ventricular response Chronic kidney disease, stage 3b Chronic kidney disease Baseline creatinine is around 1.50. Restless leg syndrome Congestive heart failure Echocardiogram in March 2021 showed normal FVC size, moderate LVH, borderline LV systolic function with an EF of 50 to 55%, and grade 1 diastolic dysfunction. Depression with anxiety Degenerative joint disease Burst fracture of thoracic vertebra Kidney stone Obstructive sleep apnea on CPAP Diverticulitis Hypertension Type 2 diabetes mellitus Chronic obstructive pulmonary disease Patient had a pulmonary function test on 02/24/2020 which was suggestive of COPD. Chronic anticoagulation Paroxysmal atrial fibrillation On amiodarone therapy Depression Hyperlipidemia Herniated disc Surgical History Surgical History History of right knee surgery Ligamentous repair. History of bilateral cataract extraction History of mechanical aortic valve replacement (2003) [facility] valve. History of ankle surgery ORIF left ankle fracture. History of hysterectomy Family History Family History Mother Family history of cardiovascular disease Family history of arthritis CHF (congestive heart failure) Depression Family history of coronary artery disease Father Family history of cardiovascular disease Diabetes mellitus Family history of arthritis Acute myocardial infarction Family history of diabetes mellitus in first degree relative Sibling , cancer Family history of arthritis Malignant neoplasm of prostate Sibling Family history of arthritis Malignant neoplasm of prostate Social History Social History Social History: The patient is and lives in her own home with her small dog. 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 No alcohol or illicit drug use. Surrogate decision maker: Shannon Vigil, sister. Code status: Full code. Smoking packs per day: 1 Smoking cigarettes per day: 20.0 Years smoked: 5 Smoking pack-years: 5.00 Smoking status: Former smoker Tobacco type: cigarettes Second hand tobacco smoke exposure: No Alcohol intake: never Substance use: never Substance use type: does not use Do You Feel Safe in your Home?: Yes Lack of Transportation: No Lack of Food: Never True Current Housing: I Have Housing Concerned About Future Housing: No Difficulty Paying Gas/Electric Bills: No Difficulty Paying for Meds: No Currently Unemployed: No Education: High School Diploma/GED Difficulty w/ Childcare or Family Care: No Living arrangements: alone Occupation/Education: retired Additional gender identity comments: [employer] work Spiritual care concerns: No Agree to blood products: Yes Exam 2 Narrative: APPEARANCE: Well appearing, no pain, no distress, well-nourished. HEAD: normocephalic, atraumatic. EYES: PERRLA/EOMI, conjunctivae clear. NOSE: Normal no drainage EARS:TMS clear with good light reflex. THROAT: Pharynx clear, no exudate. NECK: Supple. No adenopathy, no masses. RESPIRATORY: Airway patent, respirations nonlabored. Clear to auscultation bilaterally, no rales, rhonchi, wheezing. CARDIOVASCULAR: Tachycardia ABDOMINAL: Soft, nontender, nondistended, normal bowel sounds MUSCULOSKELETAL: Moves all extremities. Strength/ROM intact, No edema, No calf tenderness. NEURO: Alert. Cranial nerves II through XII intact. Grossly intact SKIN: Warm, dry. Normal Color Course Vital Signs Vital signs: Vital Signs Temperature 97.4 F L 05/03/24 19:40 Pulse Rate 128 H 05/03/24 19:40 Respiratory Rate 16 05/03/24 19:40 Blood Pressure 92/60 L 05/03/24 19:40 Pulse Oximetry 98 05/03/24 19:40 Oxygen Delivery Room Air 05/03/24 19:40 Temperature 97.4 F L 05/03/24 19:40 Pulse Rate 69 05/04/24 06:24 Respiratory Rate 14 05/04/24 06:24 Blood Pressure 132/61 05/04/24 06:24 Pulse Oximetry 96 05/04/24 06:24 Oxygen Delivery Room Air 05/03/24 19:40 Medical Decision Making MDM Narrative Medical decision making narrative: 78-year-old female presents to the emergency department for evaluation for rapid heart rate. Patient does have history of AFib and had been controlled with sotalol. Patient was and heart rate in the 120s and patient was treated with 5 of IV Lopressor and 40 mg of p.o. sotalol and this did help to convert her back to a normal sinus rhythm. Patient is currently afebrile with no leukocytosis and hemoglobin 11.0. INR is 1.9 and patient is on Coumadin. Patient had no significant abnormalities her CMP and patient had negative serial troponins. Chest x-ray shows no acute cardiopulmonary abnormality. I discussed the case with Dr Farrell. Patient currently takes 40 mg once a day of sotalol and Cardiology recommended increasing her sotalol to 40 mg b.i.d.. Differential Diagnosis Differential Diagnosis: Atrial fibrillation, tachycardia, COVID, RSV, influenza, dehydration Vital Signs Vital Signs: Vital Signs Temperature 97.4 F L 05/03/24 19:40 Pulse Rate 128 H 05/03/24 19:40 Respiratory Rate 16 05/03/24 19:40 Blood Pressure 92/60 L 05/03/24 19:40 Pulse Oximetry 98 05/03/24 19:40 Oxygen Delivery Room Air 05/03/24 19:40 Temperature 97.4 F L 05/03/24 19:40 Pulse Rate 69 05/04/24 06:24 Respiratory Rate 14 05/04/24 06:24 Blood Pressure 132/61 05/04/24 06:24 Pulse Oximetry 96 05/04/24 06:24 Oxygen Delivery Room Air 05/03/24 19:40 Lab Data Lab results reviewed: Yes I reviewed the patient's lab results. 05/03/24 19:58 05/03/24 19:58 Labs: Lab Results 02/05/03/24 05/04/24 Range/Units 19:58 22:59 03:51 WBC 5.7 (4.5-10.0) K/mm3 RBC 3.34 L (4.2-5.4) M/mm3 Hgb 11.0 L (12.0-15.0) g/dL Hct 34.9 L (37.0-47.0) % MCV 104.5 H (80-100) fl MCH 32.9 (26-34) pg MCHC 31.5 L (32-36) g/dl RDW 14.4 (11.5-14.5) % Plt Count 243 (150-375) k/mm3 MPV 12.2 H (7.4-10.4) fl Immature Gran % (Auto) 0.2 (0-0.5) % Neut % (Auto) 51.1 (45.5-73.1) % Lymph % (Auto) 30.2 (18.3-44.2) % [place] % (Auto) 11.8 H (2.6-8.5) % Eos % (Auto) 5.1 H (0-4.4) % Baso % (Auto) 1.6 H (0.2-1.2) % Lymph # (Auto) 1.71 (0.9-3.2) K/mm3 [place] # (Auto) 0.7 H (0.1-0.6) K/mm3 Eos # (Auto) 0.3 (0-0.3) K/mm3 Baso # (Auto) 0.1 (0.0-0.1) K/mm3 Abs Immat Gran (auto) 0.01 (0.00-0.031) K/mm3 Absolute Neuts (auto) 2.9 (1.3-6.7) K/mm3 Absolute Nucleated RBC 0.000 (0.0-0.012) K/mm3 Nucleated RBC % 0.0 (0.0-0.2) % PT 22.3 H (11.1-14.7) Seconds INR 1.9 APTT 54.3 H (22.3-36.8) Seconds Sodium 139 (137-145) mmol/L Potassium 3.8 (3.4-5.0) mmol/L Chloride 102 (98-107) mmol/L Carbon Dioxide 29 (22-30) mmol/L Anion Gap 8 (4-12) mmol/L BUN 14 D (7-17) mg/dL Creatinine 0.93 (0.7-1.0) mg/dL Estim Creat Clear Calc 44 ml/min Estimated GFR 58 L (59 - ) Glucose 134 H (65-110) mg/dL Calcium 10.1 (8.4-10.2) mg/dL Total Bilirubin 0.5 (0.2-1.3) mg/dL AST 25 (14-36) U/L ALT 12 (6-35) U/L Alkaline Phosphatase 65 (38-126) U/L Troponin I 0.021 0.022 0.020 (0.000-0.034) ng/mL Total Protein 7.0 (6.3-8.2) g/dL Albumin 3.6 (3.5-5.1) g/dL Lipase 129 (23-300) U/L Imaging Data Radiologist's impression: Impressions Chest X-Ray 05/03/24 21:16 IMPRESSION: No acute cardiopulmonary process. Discharge Plan Discharge Clinical Impression: Atrial fibrillation with rapid ventricular response Patient Disposition: Home, Self-Care Condition: Stable Instructions: Antibiotic Form Additional Instructions: Your sotalol is being increased from 40 mg daily to 40 mg twice daily. Have close follow-up with Cardiology, Dr Farrell. If you have any worsening symptoms then please call or return to the emergency department. Patient Language: Danish Prescriptions: New sotalol 80 mg tablet 40 mg PO BID 30 Days Qty: 30 0RF Rx Instructions: administer after dialysis on dialysis days Discontinued sotalol 80 mg tablet 40 mg PO DAILY Qty: 30 0RF No Action Ozempic 0.25 mg or 0.5 mg (2 mg/3 mL) pen injector 0.5 mg subcut WEEKLY simvastatin 10 mg PO HS cholecalciferol (vitamin D3) 1,000 units PO DAILY cyanocobalamin (vitamin B-12) 1,000 mcg capsule 1,000 mcg PO DAILY Qty: 30 0RF venlafaxine 150 mg Capsule,Extended Release 24hr 150 mg PO DAILY gabapentin 300 mg Capsule 300 mg PO Q12H potassium chloride 10 mEq tablet extended release 10 meq PO HS furosemide 20 mg tablet 20 mg PO DAILY hydrocodone-acetaminophen 5-325 mg tablet 1 - 2 tablet PO Q6H PRN (Reason: Pain) omeprazole 40 mg capsule,delayed release(DR/EC) 40 mg PO DAILY alprazolam 0.5 mg tablet 0.25 mg PO HS PRN (Reason: Anxiety) methimazole 5 mg tablet 5 mg PO DAILY cinacalcet 30 mg tablet 15 mg PO DAILY warfarin 6 mg tablet 6 mg PO DAILY polyethylene glycol 3350 [Miralax] 17 gram Powder In Packet 17 g PO QAM Qty: 30 0RF levalbuterol HCl 1.25 mg/3 mL Solution For Nebulization 1.25 mg inhalation Q6HRT Qty: 30 0RF melatonin 5 mg Tablet 5 mg PO HS Qty: 30 0RF Follow-up/Referrals: Emil Farrell DO [Physician] - [facility],DO Sanjeev [Primary Care Provider] -
--- OUTSIDE RECORDS SUMMARY | 2024-05-04 04:14 | XMS_ITS | CONTINUITY OF CARE DOCUMENT ---
Author Name gaetano salter Address Unknown Organization [facility] Address [address] [place] [address] [address] [place] [address] Phone [phone] Care Team Providers Care Window Covering Sales Consultant Name Role Phone Wendy Dey MD Unavailable [phone] Wendy Dey MD Unavailable [phone] INSURANCE PROVIDERS Payer name Policy type / Coverage type [employer] red green party ID [employer] HMO Other [id number]
--- OUTSIDE RECORDS SUMMARY | 2024-05-04 04:14 | XMS_ITS | Referral Summary ---
Author Organization [facility] [address] [place] [address] Address [address] [facility] [address] [place] [address] Care Team Providers Care Front Elevator Operator Name Role Phone Sanjeev Webster DO Primary Care Provide r Encounters Date Type Department Care Team Description 05/03/2024 Telephone [facility] Medical Group Cardiology [address] [facility] [address] [place] [address] Paxton Villela MD Atrial Fibrillation 02/29/2024 10:30 AM DOBIE MAN Office Visit [facility] Medical [facility] Cardiology [address] [place] [address] [address] [place] [address] Paxton Villela MD History of mechanical aortic valve replacement (Primary Dx); Hypertension associated with diabetes (HCC); Coronary artery disease involving [place] coronary artery of [place] heart without angina pectoris; LBBB (left bundle branch block); Persistent atrial fibrillation (HCC); Hypertensive heart disease with congestive heart failure, unspecified heart failure type (HCC) from Last 3 Months Allergies Active Allergy Reactions Criticality Noted Date Comments Atorvastatin Muscle pain,Other (See comments) High 08/12/2021 Leg pain/cramps. Resolved after stopping. Bacitracin Benzalkonium Cortisone Rash,Unknown High 08/02/2023 Gramicidin D Hydrocortisone Neomycin Jlctebyy-Iwsicocivw-Wtctp yxin Other (See comments) Low 07/31/2020 It [...] monitor 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 toxicity with fci u se 05/06/2019 Coronary artery disease invo lving [place] coronary artery of [place] heart without angina pectoris 05/06/2019 Abnormal stress test 05/06/2019 Bradycardia 05/06/2019 LBBB (left bundle branch block) 12/08/2018 Myopathy 02/17/2018 Paroxysmal atrial flutter ([facility]/HCC) 08/12/2017 Assessment & Plan (08/14/2020 8:04 [...] a associated with type 2 diabetes mellitus ([facility]) 07/16/2015 Overview (06/13/2016): DM type 2 with [...] on file Legal Sex Female 6:10 AM DOBIE MAN Gender Identity Not on file Sexual Orientation Not on file Last Filed Vital Signs Vital Sign Reading Time Taken Comments Blood Pressure 90/64 02/29/2024 10:36 AM DOBIE MAN Pulse 68 02/29/2024 10:36 AM DOBIE MAN Temperature 36.6 C (97.8 F) 08/17/2020 12:52 AM CDT Respiratory Rate 20 08/17/2020 12:52 AM CDT Oxygen Saturation 98% 02/29/2024 10:36 AM DOBIE MAN Inhaled Oxygen Concentration - - Weight 79.8 kg (176 lb) 02/29/2024 10:36 AM DOBIE MAN Height 165.1 cm (5' 5 ) 02/29/2024 10:36 AM DOBIE MAN Body Mass Index 29.29 02/29/2024 10:36 AM DOBIE MAN Plan of Treatment Not on file Procedures [...] LAB BLOOD ORDERABLES Final Resul t [facility] [address] [facility] [place] [address] * (ABNORMAL) Hemoglobin A1c (08/14/2020 [...] and children were not included. (Diabetes Care 31:8000-7300, 2008). The eAG is not equivalent to a fasting glucose. Blood specimen (specimen) 08/14/2020 9:38 AM CDT 08/14/2020 9:54 AM CDT Amparo Vergara MD LAB BLOOD ORDERABLES Final Resul t [facility] [address] [facility] [place] [address] from Last 3 Months or Most Recently Relevant to Health Maintenance Insurance [facility] Advance Directives For more information, please contact: [phone] Documents on File Type Date Recorded Patient Organ Pipe Finisher Expl anation ADVANCE DIRECTIVE 09/04/2020 1:26 PM OUTSI DE [facility] DNR ADVANCE DIRECTIVE 09/03/2020 12:52 PM ADVANCE DIRECTIVE 08/16/2020 11:40 AM OUTS [facility] DNR * Full Code (Latest Code Status on File) Date Activated Date Inactivated Comments 08/11/2020 6:08 PM 08/17/2020 5:34 PM Care Teams Front Elevator Operator Relationship Specialty Start Date End Date Sanjeev Webster DO [address] [place] [id number] PCP - General Family Medicine 03/11/21
--- OUTSIDE RECORDS SUMMARY | 2024-05-04 04:14 | XMS_ITS | Encounter Summary ---
Author Organization [facility] Healthcare Address [address] [place] [address] Care Team Providers Care Java Security Architect Name Role Phone Sanjeev Webster Primary Care Provide r Reason for Visit * Reason Onset Date Comments Atrial Fibrillation 05/03/2024 Encounter Details Date Type Department Care Team (Late st Contact Info) Description 05/03/2024 Telephone [facility] Cardiology [address] [facility] [place] [address] Paxton Villela MD [facility] [place] [address] Atrial Fibrillation Social History Tobacco Use Types [...] on file Legal Sex Female 6:10 AM GENERAL DISTILLERY WORKER Gender Identity Not on file Sexual Orientation Not on file documented as of this encounter Miscellaneous Notes * Telephone Encounter - Paxton Villela MD - 05/03/2024 5:18 PM GENERAL DISTILLERY WORKER Please bring her for 48 hour holter. RAL DISTILLERY WORKER * Telephone Encounter - Dov Richards RN - 05/03/2024 3:29 PM GENERAL DISTILLERY WORKER Spoke with Natalee HUNTER. Pt was sent [...] office has not contacted pt by then. RAL DISTILLERY WORKER * Telephone Encounter - Sherron Bucio - 05/03/2024 3:19 PM CST DALE Albright from Dr. Webster's office calling to speak with DALE Chi. Requesting a call back on their backline. Please advise. Thank you. Contact [phone] RAL DISTILLERY WORKER * Telephone Encounter - Dov Richards RN - 05/03/2024 12:41 PM GENERAL DISTILLERY WORKER Spoke with DALE Albright from PCP office. EKG being faxed to our office. Pt reports no symptoms at thistime. Advised that I would forward EKG and note to Dr. Villela once received and that we would reach out to pt with any additional instructions. please advise on EKG sent via media. Thanks! RAL DISTILLERY WORKER RAL DISTILLERY WORKER * Telephone Encounter - Sherron Bucio - 05/03/2024 12:22 PM CST DALE Albright from Dr. Webster's office states that this mutual pt is currently in office and they just performed an ECG and believes she's in a-fib with rvr. Requesting a call back as soon as possible. Please advise. Thank you. Contact [phone] (backline) RAL DISTILLERY WORKER documented in this encounter Plan of Treatment Not on file documented as of this encounter Visit Diagnoses Not on filedocumented in this encounter Care Teams Java Security Architect Relationship Specialty Start Date End Date Sanjeev Webster DO [address] [place] [address] PCP - General Family Medicine 03/11/21 documented as of this encounter
--- OUTSIDE RECORDS SUMMARY | 2024-05-04 04:14 | XMS_ITS | Encounter Summary ---
Author Organization [facility] Address [address] [facility] [place] [address] Care Team Providers Care Geology Professor Name Role Phone Hong Holder MD Primary Care Provider [phone] Hong Holder MD Primary Care Provider [phone] Juan Pablo Dominguez MD Primary Care Provider Miscellaneous, Not In File Primary Care Provider Unavailable Sanjeev Webster DO Primary Care Provide r Encounter Details Date Type Department Care Team (Late st Contact Info) Description 05/28/2016 Orders Only [facility] ProviderCasi MD [address] [place] [address] Social History Tobacco Use Types Packs/Day Years Used Date Smoking Tobacco: Never Alcohol Use Standard Drinks/Week Comments No 0 (1 standard drink = 0.6 oz pur e alcohol) Comments Unknown Sex and Gender Information Value Date Recorded Sex Assigned at Not on file Legal Sex Female 6:10 AM CUSTOMS COLLECTOR Gender Identity Not on file Sexual Orientation [...] on filedocumented in this encounter Care Teams Geology Professor Relationship Specialty Start Date End Date Hong Holder MD [address] [place] [address] PCP - General 06/06/16 01/11/20 Hong Holder MD [address] [place] [address] PCP - General 01/15/15 06/05/16 Juan Pablo Dominguez MD [address] [place] [address] PCP - General Family Medicine 01/12/20 08/06/20 Miscellaneous, Not In File PCP - General 08/07/20 2 Sanjeev Webster DO [address] [place] [address] PCP - General Family Medicine 03/11/21 documented as of this encounter
--- OUTSIDE RECORDS SUMMARY | 2024-05-04 04:14 | XMS_ITS | Patient Health Summary ---
Author Organization [facility] Address [address] [facility] [place] [address] Care Team Providers Care Jumpbasting Lining Baster Name Role Phone Juan Pablo Dominguez MD Primary Care Provider Meghan e Note from [facility],non-owned Affiliates and Associated Physician Practices is amultiple site organization consisting of ambulatory clinics and hospital sitesin [place], [place], [place] and [place]. This disclosure is being madepursuant to the Care Everywhere program and may not contain all information available regarding this patient. Last updated 17.[facility] Allergies No known active allergies Medications * [...] - 14.8 sec 08/11/2020 6:40 AM CDT [facility] INR 1.4(H) 0.9 - 1.1 08/11/2020 6:40 AM CDT [facility] Blood BLOOD SPECIMEN / Unknown Lab Venipuncture / Unknown 08/11/2020 6:14 AM CDT 08/11/2020 6:24 AM CDT Narrative [facility] - 08/11/2020 6:40 AM CDT Conventional Warfarin Anticoagulant Therapy: INR Reference Range: 2.0-3.0 Intensive Warfarin Anticoagulant Therapy: INR Reference Range: 2.5-3.5 Odette Rowland MD LAB - COAGULATION OR DERABLES [facility] [address] [place] [address] * (ABNORMAL) CBC W AUTO DIFFERENTIAL (08/11/2020 6:14 AM CDT) Only the most recent of2 resultswithin the time period is included. WBC 4.9 4.4 - 10.7 x10E9/L 08/11/2020 6:26 AM CDT [facility] WBC Corrected 08/11/2020 6:26 AM CDT [facility] RBC 3.38(L) 3.80 - 5.20 x10E12/L 08/11/2020 6:26 AM CDT [facility] Hemoglobin 11.1(L) 12.0 - 15.6 gm/dL 08/11/2020 6:26 AM CDT [facility] Hematocrit 34.6(L) 35.9 - 45.5 % 08/11/2020 6:26 AM CDT [facility] MCV 102.4(H) 80.7 - 98.3 fl 08/11/2020 6:26 AM CDT [facility] MCH 32.8 26.7 - 34.0 pg 08/11/2020 6:26 AM CDT [facility] MCHC 32.1 30.8 - 35.9 gm/dL 08/11/2020 6:26 AM CDT [facility] Platelet Count 191 153 - 416 x10E9/L 08/[facility]2020 [facility] RDW-CV 12.1 12.1 - 14.9 % 08/11/2020 6:26 AM [facility] MPV 12.0 9.4 - 12.9 fl 08/11/2020 6[facility] Neutrophils % 52.4 44.0 - 73.0 % 08/11/2020 6:[facility] Lymphocytes % 26.0 20.0 - 43.0 % 08/11/2020 6:26 [facility] Monocytes % 16.1(H) 5.0 - 13.0 % 08/11/2020 6:26 [facility] Eosinophils % 4.1 0.0 - 6.0 % 08/11/2020 6:26 AM CDT [facility] Basophils % 1.4 0.0 - 2.0 % 08/11/2020 6:26 AM CDT [facility] Immature Granulocytes 0.0 0 - 1 % 08/11/2020 6:26 AM CDT [facility] Neutrophil Absolute 2.54 2.01 - 7.14 x10E9/L 08/11/2020 6:26 AM CDT [facility] Lymphocytes Absolute 1.26 1.07 - 3.94 x10E9/L 08/11/2020 6:26 AM CDT [facility] Monocytes Absolute 0.78 0.26 - 1.07 x10E9/L 08/11/2020 6:26 AM CDT [facility] Eosinophils Absolute 0.20 0 - 0.47 x10E9/L 08/11/2020 6:26 AM CDT [facility] Basophils Absolute 0.07 0 - 0.08 x10E9/L 08/11/2020 6:26 AM CDT [facility] Immature Granulocytes Absolute 0.00 0.00 - 0.06 x10E9/L 08/11/2020 6:26 AM T [facility] nRBC Auto 0 /100 WBC 08/11/2020 6:26 AM [facility] Blood BLOOD SPECIMEN / Unknown Lab Venipuncture / Unknown 08/11/2020 6:14 AM CDT 08/11/2020 6:24 AM CDT Neel Paulino DO LAB - HEMATOLOGY ORDERABLES Performing Organization Address City/State/[facility] Co de Phone Number [facility] [address] [place], [place] [id number] * (ABNORMAL) BASIC METABOLIC PANEL (CALCIUM TOTAL) (08/11/2020 6:14 AM CDT) Glucose 75 70 - 105 mg/dL 08/11/2020 6:47 AM [facility] Sodium 140 136 - 145 mmol/L 08/11/2020 6:47 AM [facility] Potassium 4.5 3.5 - 5.1 mmol/L 08/11/2020 6:47 AM [facility] Chloride 107 98 - 107 mmol/L 08/11/2020 6:47 AM T [facility] CO2 25 23 - 31 mmol/L 08/11/2020 6:47 AM T [facility] Calcium 10.0 8.4 - 10.4 mg/dL 08/11/2020 6:47 AM [facility] Anion Gap 8 8 - 18 mmol/L 08/11/2020 6:47 AM [facility] BUN 23(H) 9.8 - 20.1 mg/dL 08/11/2020 6:47 AM [facility] Creatinine 1.03 0.57 - 1.11 mg/dL 08/11/2020 6:47 AM CDT [facility] eGFR by MDRD 52 mL/min/1.7 3m2 08/11/2020 6:47 AM CDT [facility] eGFR by MDRD >60 mL/min/1.7 3m2 08/11/2020 6:47 AM CDT [facility] Blood BLOOD SPECIMEN / Unknown Lab Venipuncture / Unknown 08/11/2020 6:14 AM CDT 08/11/2020 6:25 AM CDT Neel Paulino DO LAB - CHEMISTRY O RDERABLES [facility] [address] [address] * IR CAROTID CEREBRAL ANGIOGRAM (08/10/2020 9:59 AM CDT) Anatomical Region Laterality Modality Head Other Narrative 08/10/2020 10:02 AM CDT Maen Munoz MD 08/10/2020 10:06 AM PROCEDURE PERFORMED: [...] performed with 21-gauge micropuncture needle. A 5 Irish sheath was inserted over a Privacy Analyticsson wire and connected to a regulated pressurized infusion. A 5 Irish diagnostic catheter was advanced over the wire [...] ARTERY RUN: DSA run was obtained in [place] and lateral views. Left common carotid artery [...] a 2.2 mm wide neck. Natalee Solis APPLIANCE REPAIR TECHNICIAN-SEWING MACHINE OPERATOR PLASTIC ZIPPER IR ORDERABLES * (ABNORMAL) COMPREHENSIVE METABOLIC PANEL (08/10/2020 5:57 AM CDT) Glucose 85 70 - 105 mg/dL 08/10/2020 6:24 AM CDT [facility] Sodium 139 136 - 145 mmol/L 08/10/2020 6:24 AM CDT [facility] Potassium 4.4 3.5 - 5.1 mmol/L 08/10/2020 6:24 AM CDT [facility] Chloride 107 98 - 107 mmol/L 08/10/2020 6:24 AM CDT [facility] CO2 26 23 - 31 mmol/L 08/10/2020 6:24 AM CDT [facility] Calcium 10.1 8.4 - 10.4 mg/dL 08/10/2020 6:24 AM CDT [facility] Anion Gap 6(L) 8 - 18 mmol/L 08/10/2020 6:24 AM CDT [facility] BUN 17 9.8 - 20.1 mg/dL 08/10/2020 6:[facility] Creatinine 1.15(H) 0.57 - 1.11 mg/dL 08/10/2020 6:24 AM [facility] Alkaline Phosphatase 63 40 - 150 U/L 08/10/2020 6:24 AM CDT [facility] ALT 12 0 - 61 U/L 08/10/2020 6:24 AM CDT [facility] AST 19 5 - 34 U/L 08/10/2020 6:24 AM [facility] Protein Total 6.0(L) 6.4 - 8.3 gm/dL 08/10/2020 6:24 AM CDT [facility] Albumin 3.3 3.2 - 4.6 gm/dL 08/10/2020 6:24 [facility] Bilirubin Total 0.4 0.2 - 1.2 mg/dL 08/10/2020 6:24 AM [facility] eGFR by MDRD 46 mL/min/1.7 3m2 08/10/2020 6:24 AM CDT [facility] eGFR by MDRD 56 mL/min/1.7 3m2 08/10/2020 6:24 AM CDT [facility] Blood BLOOD SPECIMEN / Unknown Lab Venipuncture / Unknown 08/10/2020 5:57 AM CDT 08/10/2020 6:02 AM CDT Odette Rowland MD LAB - CHEMISTRY [place] TEJEDA [facility] [address] [place] [address] * GLUCOSE - POINT OF CARE (08/09/2020 10:43 PM CDT) Glucose WB/POC 88 70 - 106 mg/dL 08/10/2020 11:37 AM CDT [facility] Specimen Type Arterial/C apillary 08/10/2020 11:37 AM CDT [facility] Blood BLOOD SPECIMEN / Unknown 08/09/2020 10:43 PM CDT 08/10/2020 11:37 AM CDT Neel Paulino DO LAB - POINT OF CA RE ORDERABLES [facility] [address] [place] [address] * EKG 12-LEAD (08/09/2020 5:33 PM CDT) Ventricular Rate 66 BPM [facility] MUSE Atrial Rate 66 BPM [facility] P-R Interval 208 ms [facility] QRS Duration ms 144 ms [facility] Q-T Interval ms 534 ms [facility] QTC Calculation (Bezet) 559 ms [facility] MUSE Calculated R [place] -146 degrees [facility] MUSE Calculated T [place] 22 degrees [facility] M[facility] Interpretation EKG Suspect arm lead reversal, interpretation assumes no reversal aVR is positive Normal sinus rhythm Left bundle branch block Abnormal ECG No previous ECGs available Suggest repeat ECG and maje sure limb leads correctly applied Confirmed by MD LOPEZ PHILLIP G. ([id number]) on 08/10/2020 7:46:00 AM [facility] 08/09/2020 5:33 PM CDT 08/10/2020 [...] on 08/09/2020 at 2:10 PM Natalee Solis APPLIANCE REPAIR TECHNICIAN-SEWING MACHINE OPERATOR PLASTIC ZIPPER MR ORDERABLES * ECHOCARDIOGRAM 2D WITH DOPPLER (08/09/2020 9:00 AM CDT) 08/09/2020 9:00 AM CDT Narrative Procedure Note Robin Pierre Jr., MD - 08/09/[address] [address] Echocardiography Examination Transthoracic Name: ANA MARIA BOBO MPI#: MR#: [id number] Admission Number: [id number] Study Date: 08/09/2020 Study Time: 02:16 PM [...] to opacify the left ventricle. Facility [facility] Indication: S/P AVR, Elevated troponin Procedure Undergraduate Internship: Ana Maria Chance RDCS Ordering Provider: Robin [...] 4 Robin Pierre Jr., MD ECHO ORDERABLES [facility] [address] [place] [address] * GROSS + MICRO EXAM (05/12/2003 6:56 PM CAVALRY SCOUT) Result CASE NUMBER [id number] Comment: ORDERING [...] elevated areas which appear gritty on sectioning. Brick Machine Operator sections submitted in one cassette for decal. [facility] Microscopic Exam Sections show cardiac valvular tissue with severe calcific atherosclerosis. Acute inflammation is not seen. No bacterial vegetations are present. MC/ Diagnosis I. Aortic valve leaflet, resection A. Severe calcific atherosclerosis. MC/ Tool Shaper Setup Operator [facility] Pathologist Carlos James M.D. [place]. 05/15/2003 1448 <1> CPT code 31541, 27552 MISCELLANEOUS SAMPLES / Unknown 05/12/2003 6:56 PM CAVALRY SCOUT 05/12/2003 6:57 PM CAVALRY SCOUT Historical Provider MD LAB - PATHOLOGY/C YTOLOGY ORDERABLES Care Teams Jumpbasting Lining Baster Relationship Specialty Start Date End Date Juan Pablo Dominguez MD PCP - General Family Medicine 08/09/20
--- OUTSIDE RECORDS SUMMARY | 2024-05-04 04:14 | XMS_ITS | Referral Summary ---
Author Organization [facility] Address [address] [place] [address] Care Team Providers Care Milling General Superintendent Name Role Phone Juan Pablo Dominguez MD Primary Care Provider Unavailabl e Source Comments [facility],non-owned Affiliates and Associated Physician Practices is amultiple site organization consisting of ambulatory clinics and hospital sitesin [place], [place], [place] and [place]. This disclosure is being madepursuant to the Care Everywhere program and may not contain all information available regarding this patient. Last updated 17.[facility] Allergies No known active allergies Medications * [...] 4:06 AM 08/11/2020 4:47 PM Care Teams Milling General Superintendent Relationship Specialty Start Date End Date Juan Pablo Dominguez MD PCP - General Family Medicine 08/09/20
--- OUTSIDE RECORDS SUMMARY | 2024-05-04 04:14 | XMS_ITS | Clinical Summary ---
Author Organization [facility] Address [address] [place] [address] Care Team Providers Care Device Processing Engineer Name Role Phone Juan Pablo Dominguez MD Primary Care Provider Unavailabl e Source Comments [facility],non-owned Affiliates and Associated Physician Practices is amultiple site organization consisting of ambulatory clinics and hospital sitesin [place], [place], [place] and [place]. This disclosure is being madepursuant to the Care Everywhere program and may not contain all information available regarding this patient. Last updated 17.[facility] Allergies No known active allergies Medications * [...] 4:06 AM 08/11/2020 4:47 PM Care Teams Device Processing Engineer Relationship Specialty Start Date End Date Juan Pablo Dominguez MD PCP - General Family Medicine 08/09/20
--- OUTSIDE RECORDS SUMMARY | 2024-05-04 04:14 | XMS_ITS | Clinical Summary ---
Author Organization [facility] Address [address] [place] [address] Phone Care Team Providers Care Securities Attorney Name Role Phone Sanjeev Webster DO Primary Care Provider + Blade Phillips MD Unavailable [phone] Allergies Active Allergy Reactions Criticality Noted Date [...] topic Insurance MEDICARE C ESSENCE Care Teams Securities Attorney Relationship Specialty Start Date End Date Sanjeev Webster DO [address] [place] [address] PCP - General Family Medicine 09/14/23 Blade Phillips MD [address] [place] [phone] Oncology 09/14/23
--- OUTSIDE RECORDS SUMMARY | 2024-05-04 04:14 | XMS_ITS | Clinical Summary ---
Author Organization [facility] [address] Address [address] [place] [address] Care Team Providers Care Machine Operator Transplanter Name Role Phone Sanjeev Webster DO Primary Care Provide r Allergies Active Allergy Reactions Criticality Noted Date Comments Atorvastatin Muscle pain,Other (See comments) High 08/12/2021 Leg pain/cramps. Resolved after stopping. Bacitracin Benzalkonium Cortisone Rash,Unknown High 08/02/2023 Gramicidin D Hydrocortisone Neomycin Dlidsruf-Mymyhiizzx-Lxdco yxin Other (See comments) Low 07/31/2020 It [...] 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 toxicity with director metabolism u se 05/06/2019 Coronary artery disease invo lving chitina coronary artery of chitina heart without angina pectoris 05/06/2019 Abnormal stress [...] Type Department Care Team Description 05/03/2024 Telephone [facility] Cardiology [address] [place] [phone] Paxton Villela MD Atrial Fibrillation 02/29/2024 10:30 AM MANAGER RELOCATION Office Visit [facility] Cardiology [address] [place] [address] Paxton Villela MD History of mechanical aortic valve replacement (Primary Dx); Hypertension associated with diabetes (HCC); Coronary artery disease involving chitina coronary artery of chitina heart without angina pectoris; LBBB (left bundle [...] file Legal Sex Female 6:10 AM MANAGER RELOCATION Gender Identity Not on file Sexual Orientation Not on file Obstetrics History Last Filed Vital Signs Vital Sign Reading Time Taken Comments Blood Pressure 90/64 02/29/2024 10:36 AM MANAGER RELOCATION Pulse 68 02/29/2024 10:36 AM MANAGER RELOCATION Temperature 36.6 C (97.8 F) 08/17/2020 12:52 AM CDT Respiratory Rate 20 08/17/2020 12:52 AM CDT Oxygen Saturation 98% 02/29/2024 10:36 AM MANAGER RELOCATION Inhaled Oxygen Concentration - - Weight 79.8 kg (176 lb) 02/29/2024 10:36 AM MANAGER RELOCATION Height 165.1 cm (5' 5 ) 02/29/2024 10:36 AM MANAGER RELOCATION Body Mass Index 29.29 02/29/2024 10:36 AM MANAGER RELOCATION Plan of Treatment Health Maintenance Due Date [...] LAB BLOOD ORDERABLES Final Resul t [facility] Department [place] [address] * (ABNORMAL) Hemoglobin A1c (08/14/2020 9:38 AM CDT) Hgb A1C 6.0(H) 4.0 - 5.6 % [facility] Estimated Average Glucose 126 mg/dL [facility] Comment: The ADA recommends reporting an estimated Average Glucose (eAG) with all Hemoglobin A1c results using the equation derived from a study of 507 normal and diabetic adults. Minority populations were underrepresented and children were not included. (Diabetes Care 31:4950-1762, 2008). The eAG is not equivalent to a fasting glucose. Blood specimen (specimen) 08/14/2020 9:38 AM CDT 08/14/2020 9:54 AM CDT us Amparo Vergara MD LAB BLOOD ORDERABLES Final Resul t [facility] [address] [facility] Department [place] [address] from Last 3 Months or Most Recently Relevant to Health Maintenance Insurance [facility] Advance Directives For more information, please contact: [phone] Documents on File Type Date Recorded Patient Mule Developer Expl anation ADVANCE DIRECTIVE 09/04/2020 1:26 PM [facility] ADVANCE DIRECTIVE 09/03/2020 12:52 PM ADVANCE DIRECTIVE 08/16/2020 11:40 AM OUTS [facility] * Full Code (Latest Code Status on File) Date Activated Date Inactivated Comments 08/11/2020 6:08 PM 08/17/2020 5:34 PM Care Teams Machine Operator Transplanter Relationship Specialty Start Date End Date Sanjeev Webster DO [address] [place] [address] PCP - General Family Medicine 03/11/21
[2024-05-04] MEDS: METOPROLOL TARTRATE INJ 5 MG/5 ML VIAL IV PUSH (04:38)
[2024-05-04] MEDS: SOTALOL HCL 40 MG TABLET PO (04:39)
[2024-05-04] MEDS: LACTATED RINGERS 1,000 ML 250 ML IV CONT (04:41)
[2024-05-04] MEDS: ACETAMINOPHEN 325 MG TABLET 650 MG PO (05:52)
--- NOTE | 2024-05-04 05:54 | ECG_ITS ---
Test Date: 2024-05-04 06:00:48 Measurements Intervals [place] Rate: 62 P: 1 ID: 194 QRS: -38 QRSD: 138 T: 122 QT: 452 QTc: 462 Interpretive Statements SINUS RHYTHM WITH SINUS ARRHYTHMIA LEFT AXIS DEVIATION LEFT BUNDLE BRANCH BLOCK BASELINE ARTIFACT- I, II, III, AVR, AVL, AVF ABNORMAL ECG Compared to ECG 05/03/2024 22:55:37 HEART RATE HAS DECREAED Electronically Signed On 05-04-2024 07:14:44 CREATIVE DESIGNER by Emil Farrell D.O.
--- NOTE | 2024-05-04 05:55 | ECG_ITS ---
Test Date: 2024-05-03 22:55:37 Measurements Intervals [place] Rate: 127 P: 7 KS: 219 QRS: -47 QRSD: 141 T: 130 QT: 341 QTc: 497 Interpretive Statements ATRIAL FLUTTER/TACHYCARDIA WITH RAPID VENTRICULAR RESPONSE LEFT AXIS DEVIATION LEFT BUNDLE BRANCH BLOCK BASELINE ARTIFACT- I, II, III, AVR, AVL ,AVF ABNORMAL ECG Compared to ECG 05/03/2024 19:49:55 NO SIGNIFICANT CHANGE Electronically Signed On 05-04-2024 08:50:37 DYNAMICS AX DEVELOPER by Emil Farrell D.O.
== END 2024-05-04 06:25 | disposition home or self-care (01) ==
PROVIDERS: Emergency Provider Emergency Medicine; PCP Student in an Organized Health Care Education/Training Program
DX: I48.91 Unspecified atrial fibrillation (principal); Z95.2 Presence of prosthetic heart valve; E11.22 Type 2 diabetes mellitus with diabetic chronic kidney disease; I12.9 Hypertensive chronic kidney disease with stage 1 through stage 4 chronic kidney disease, or unspecified chronic kidney disease; E53.8 Deficiency of other specified B group vitamins; N18.32 Chronic kidney disease, stage 3b; F41.8 Other specified anxiety disorders; E78.5 Hyperlipidemia, unspecified; Z87.891 Personal history of nicotine dependence
CPT/HCPCS: 36415; 71046; 80053; 83690; 84484; 85025; 85610; 85730; 93005; 96361; 96374; 99284; A9270; J7120

== ENCOUNTER 2024-05-28 21:22 | Emergency (ER) | payer OTHER, SELFPAY ==
--- NOTE | ~2024-05-28 | XR_ITS ---
XR chest 2V DATE: 05/28/2024 22:06 INDICATION: Chest pain TECHNIQUE: AP and lateral views COMPARISON: 05/03/2024 PA and lateral chest 03/29/2024 CTA pulmonary scan 05/16/2022 PA and lateral chest FINDINGS: Status post sternotomy and aortic valve replacement. Cardiomegaly with heart size compared to 05/16/2022. Prominent thoracic and abdominal aortic calcification. No pulmonary infiltrate or consolidation, pleural effusion or pulmonary vascular congestion or pneumo thorax is evident. Chronic prominent loss of height and anterior wedging of T6, stable since 05/16/2022 IMPRESSION: Cardiomegaly, aortic atherosclerosis Status post sternotomy and aortic valve replacement No active pulmonary disease Reviewed, dictated and finalized at location A.
--- NOTE | 2024-05-28 21:22 | ECG_ITS ---
Test Date: 2024-05-28 21:35:09 Measurements Intervals [place] Rate: 115 P: 0 MN: 0 QRS: -45 QRSD: 145 T: 117 QT: 370 QTc: 513 Interpretive Statements LIKELY SINUS TACHYCARDIA WITH FIRST DEGREE AV BLOCK LEFT AXIS DEVIATION [QRS AXIS < -30] LEFT BUNDLE BRANCH BLOCK [120+ ms QRS DURATION, 80+ ms Q/S IN V1/V2, 85+ ms R IN I/aVL/V5/V6] Compared to ECG 05/04/2024 06:00:48 TACHYCARDIA NOW PRESENT Electronically Signed On 05-29-2024 13:24:10 CDT by To Burns M.D.
--- OUTSIDE RECORDS SUMMARY | 2024-05-28 21:24 | XMS_ITS | Encounter Summary ---
Author Organization [facility] Address [facility] [place] [address] Care Team Providers Care Public Health Sanitarian Name Role Phone Dianne Johnson RN Unavailable [phone] Sanjeev Webster DO Primary Care Provider + Encounter Details Date Type Department Care Team (Late st Contact Info) Description 07/16/2021 Therapy Plan [facility] Diabetes and Endocrinology [place] [id number] [facility] [place] [address] [place] [address] [place] [address] Social History Tobacco Use Types Packs/Day Years [...] Information Value Date Recorded Sex Assigned at Female 05/03/2024 10:53 AM PRIMARY CARE MD Legal Sex Female 11:18 AM CDT Gender Identity Female 05/03/2024 10:53 AM PRIMARY CARE MD Sexual Orientation Not on file COVID-19 Exposure Response Date Recorded In the last 10 days, have yo u been in contact with someone who was confirmed or suspected to have Coronavirus/COVID-19? No / Unsure 07/15/2021 11:32 AM CDT documented as of this encounter Plan of Treatment Upcoming Encounters Date Type Department Care Team (Late st Contact Info) Description 05/30/2024 3:40 PM CDT Office Visit [facility] Family & Internal Medicine - [place] [address] [place] [address] Sanjeev Webster, [address] [place] [address] documented as of this encounter Goals Goal Patient Goal Type Associated Problems Recent Progress Patient-Stated? Author Health - patient able to perform ADLs independently General On track(2024 9:15 AM PRIMARY CARE MD) Dianne Corona RN Note: 12/17/23: Patient stated she is independent with ASL's. Establish Plan for Symptom Monitoring-CHF General On track(2024 10:14 AM CDT) Dianne Corona, RN Note: Patient will recognize [...] Establish Plan for Symptom Monitoring-COPD General On track(2024 10:14 AM CDT) Dianne Corona, RN Note: Patient will recognize [...] Establish Plan for Symptom Monitoring-DM General On track(2024 10:15 AM CDT) Dianne Corona RN Note: Patient will manage [...] Establish Plan for Symptom Monitoring-HTN General On track(2024 10:15 AM CDT) Dianne Corona, RN Note: Patient will monitor [...] Rule Out 01/13/2022 01/13/2022 01/13/2022 12:48 PM PRIMARY CARE MD COVID-19 Rule Out 01/13/2022 01/13/2022 01/14/2022 12:15 AM PRIMARY CARE MD COVID-19 Rule Out 03/18/2022 03/18/2022 03/18/2022 12:27 PM PRIMARY CARE MD COVID-19 Rule Out 03/18/2022 03/18/2022 03/18/2022 12:57 PM PRIMARY CARE MD COVID-19 Rule Out 03/18/2022 03/18/202203/19/2022 1:58 PM PRIMARY CARE MD COVID-19 Rule Out 08/26/2022 08/26/2022 08/26/2022 4:56 PM CDT COVID-19 Rule Out 01/08/2024 01/08/2024 01/08/2024 1:05 PM CDT Assessment Noted Time PHQ-9 Depression Total Score: 0 05/25/19 9:23 AM CDT documented as of this encounter Care Teams Public Health Sanitarian Relationship Specialty Start Date End Date Sanjeev Webster DO [address] [place] [id number] PCP - General FAMILY PRACTICE 09/25/20 Dianne Johnson, RN [address] [place] [address] Traveling Nurse (Ambulatory) REGISTERED NURSE 08/14/20 documented as of this encounter
--- OUTSIDE RECORDS SUMMARY | 2024-05-28 21:24 | XMS_ITS | Encounter Summary ---
Author Organization [facility] Address [address] [facility] [address] [place] [id number] Care Team Providers Care Core Winder Name Role Phone Hong Holder MD Primary Care Provider [phone] Hong Holder MD Primary Care Provider [phone] Juan Pablo Dominguez MD Primary Care Provider Miscellaneous, Not In File Primary Care Provider Unavailable Sanjeev Webster DO Primary Care Provide r Encounter Details Date Type Department Care Team (Late st Contact Info) Description 05/28/2016 Orders Only [facility] ProviderCasi MD [address] [place] [address] Social History Tobacco Use Types Packs/Day Years Used Date Smoking Tobacco: Never Alcohol Use Standard Drinks/Week Comments No 0 (1 standard drink = 0.6 oz pur e alcohol) Comments Unknown Sex and Gender Information Value Date Recorded Sex Assigned at Not on file Legal Sex Female 6:10 AM JIG INSPECTOR Gender Identity Not on file Sexual [...] on filedocumented in this encounter Care Teams Core Winder Relationship Specialty Start Date End Date Hong Holder MD [address] [address] PCP - General 06/06/16 01/11/20 Hong Holder MD [address] [address] PCP - General 01/15/15 06/05/16 Juan Pablo Dominguez MD [address] [address] PCP - General Family Medicine 01/12/20 08/06/20 Miscellaneous, Not In File PCP - General 08/07/20 2 Sanjeev Webster DO [address] [place] [id number] PCP - General Family Medicine 03/11/21 documented as of this encounter
--- OUTSIDE RECORDS SUMMARY | 2024-05-28 21:24 | XMS_ITS | CONTINUITY OF CARE DOCUMENT ---
Author Name gaetano salter Address Unknown Organization [facility] Address [address] [place] [address] [address] [place] [address] Phone [phone] Care Team Providers Care Doughnut Glazier Name Role Phone Wendy Dey MD Unavailable Wendy Dey MD Unavailable [phone] INSURANCE PROVIDERS Payer name Policy type / Coverage type [employer] party ID [id number] Other [id number]
--- OUTSIDE RECORDS SUMMARY | 2024-05-28 21:25 | XMS_ITS | Clinical Summary ---
Author Organization [facility] Address [address] [place] [address] Phone Care Team Providers Care Hospice Administrator Name Role Phone Sanjeev Webster DO Primary Care Provider + Blade Phillips MD Unavailable [phone] Allergies Active Allergy Reactions Criticality Noted Date [...] topic Insurance MEDICARE C [employer] Care Teams Hospice Administrator Relationship Specialty Start Date End Date Sanjeev Webster DO [address] [place] [address] PCP - General Family Medicine 09/14/23 Blade Phillips MD [address] [place] [id number] Oncology 09/14/23
--- OUTSIDE RECORDS SUMMARY | 2024-05-28 21:25 | XMS_ITS | Continuity of Care Document ---
Demographics Address [address] [place] [address] Work Phone Mobile Phone Home Phone Email Address pt refused Portal 01/22 Phone Preferred Language en Marital Status Gnosticist Affiliation Unknown Race White Ethnic Group Not or Lati no Author Organization [facility] Address [address] [place] [address] Phone Care Team Providers Care Medical Oncologist Name Role Phone Kiersten Pugh NP Unavailable [...] ON THURSDAY, THURSDAY AND Thursday - Active omeprazole 20 mg capsule,delayed release TAKE 1 CAPSULE BY MOUTH ONCE DAILY 30 MINUTES TO 1 HOUR BEFORE A MEAL - Active amiodarone 200 mg tablet take 1 tablet by oral route every day 200 MG - Active cyanocobalamin (vit B-12) 1,000 mcg tablet take 1 tablet by oral route every day 1 tablet - Active Procedures Procedure Date CBC, INC PLATELETS AND DIFFERENTIAL COMPREHEN METABOLIC PANEL [facility] 0 BRAIN NATRIURETIC PEPTIDE (BNP) 020 PROTHROMBIN TIME W/INR (PROTIME,PT) ROUTINE VENIPUNCTURE OFFICE [id number] BODY MASS INDEX DOCD SYST BP LT 130 MM HG DIAST BP < 80 MM HG CBC, INC PLATELETS AND DIFFERENTIAL COMPREHEN METABOLIC PANEL CMP 0 FERRITIN LEVEL IRON (FE), TOTAL TIBC, & % SATURATION PROTHROMBIN TIME W/INR (PROTIME,PT) ROUTINE VENIPUNCTURE OFFICE [id number] BODY MASS INDEX DOCD SYST BP LT 130 MM HG DIAST BP < 80 MM HG Pt inelig neg scrn depres CBC, INC PLATELETS AND DIFFERENTIAL COMPREHEN METABOLIC PANEL CMP 0 FERRITIN LEVEL PROTHROMBIN TIME W/INR (PROTIME,PT) ROUTINE VENIPUNCTURE MICROALBUMIN, QN (URINE) CREATININE, (U-R) OFFICE [id number] BODY MASS INDEX DOCD SYST BP GE [...] screen annual Clin depression screen doc OFFICE [id number] PROTIME (PT) - OFFICE LAB ONLY 20 [...] STICK-COLLECTION OF CAPIL MIRIAM BLOOD SPECIMEN OFFICE [id number]-[id number] BODY MASS INDEX DOCD SYST BP >= 140 MM HG6 IT DIAST BP < 80 MM HG Pt inelig neg scrn depres CBC, INC PLATELETS AND DIFFERENTIAL COMPREHEN METABOLIC PANEL CMP 0 HEMOGLOBIN A1C HGA1C, GLYCO PROTHROMBIN TIME W/INR (PROTIME,PT) VITAMIN B12 (SERUM) ROUTINE VENIPUNCTURE OFFICE [id number]-[id number]-[id number] BODY MASS INDEX DOCD SYST BP LT [...] MED MERGE DSCHRG MED/CURRENT MED MERGE OFFICE [id number] BODY MASS INDEX DOCD SYST BP LT [...] (SERUM) VITAMIN D, 25-HYDROXY ROUTINE VENIPUNCTURE OFFICE [id number]-JOW-[id number] BODY MASS INDEX DOCD SYST BP LT 130 MM HG DIAST BP < 80 MM HG PROTIME (PT) - OFFICE LAB ONLY 19 FINGER OR HEEL STICK-COLLECTION OF CAPIL MIRIAM BLOOD SPECIMEN OFFICE [id number] BODY MASS INDEX DOCD SYST BP LT 130 MM HG DIAST BP < 80 MM HG PROTIME (PT) - OFFICE LAB ONLY 19 FINGER OR HEEL STICK-COLLECTION OF CAPIL MIRIAM BLOOD SPECIMEN OFFICE [id number] BODY MASS INDEX DOCD SYST BP LT 130 MM HG DIAST BP < 80 MM HG PROTIME (PT) - OFFICE LAB ONLY 19 FINGER OR HEEL STICK-COLLECTION OF CAPIL MIRIAM BLOOD SPECIMEN Advance Directives Directive Yes / No Effective Date File Name No Information Encounters Encounter Description Practice Location Reason(s) For Visit Diagnoses Date Provider Providers Copied on Encounter [facility], [address], [place], [place], [address] , tel: [phone] [facility] No Information 1 Keaton Burch. [facility] [place], [address], [place]. [phone] [facility], [address], [place], [place], [address] , tel: [phone] [facility] No Information 0 1 Christi Hayes. [address] [place], [place], [address], [place]. [phone] OFFICE SMUKU-UOY-ZSZ LUIS [facility], [address], [place], [place], [address] , tel:[phone] [facility] Chronic Conditions (chief complaint) Hypertensive [...] onic obstructive airway disease 0 Keaton Burch. [address] [place] [address], [address], . tel:[phone] Referring Provider: Natalee Mcghee, [address] [place] [address], [address] . tel:[phone] [facility], [address], [place], [place], [address] , tel:[phone] [facility] No Information 0 Yara Albright. [address] [place] [address], [id number], . tel:[phone] OFFICE DFIYG-HTA-MBM [facility], [address], [place], [place], [address] , tel:[phone] [facility] Chronic Conditions (chief complaint) Body [...] peripheral angiopathy without gangrene 0 Kena Dawson. [address] [place] [address], [id number], . tel:[phone] Referring Provider: Natalee Mcghee, [address] [place] [address], [address] . tel:[phone] [facility], [address], [place], [place], [address] , tel: [phone] [facility] Unspecified atrial flutterEssenti al (primary) hypertension Payam-2 0 Yara Albright. [address] [place] [address], [id number], [place]. tel:[phone] [facility], [address], [place], [place], [address] , tel: [phone] Care Management No Information Payam-0 0 Yara Albright. [address] [place] [address], [id number], . tel:[phone] OFFICE GCNDT-NUV-ASL [facility], [address], [place], [place], [address] , [place] tel: [phone] [facility] Chronic Conditions (chief complaint) Iron [...] angiopathy without gangrene Payam-0 0 Yara Albright. [address] [place] [address], [id number], [place]. tel:[phone] Referring Provider: Natalee Mcghee, [address] [place] [address], [address] . tel:[phone] OFFICE GRQKP-PZM-TPO [facility], [address], [place], [place], [address] , [place] tel: [phone] [facility] Chronic Conditions (chief complaint) Presence [...] yosteoarthriti s, unspecified July-0 0 Yara Albright. [address] [place] [address], [id number], . tel:[phone] Referring Provider: Natalee Mcghee, [address] [place] [address], [address] . tel:[phone] [facility], [address], [place], [place], [address] , tel: [phone] [facility] Presence of prosthetic heart valveMild cognitive impairmentLong term (current) use of anticoagulants Jun- 0 Gallo Pitts. [address] [facility], [address], [place], [address], [place]. tel:[phone] Referring Provider: Hong Holder, [address] [facility] [address], [place], [address] . tel:[phone] [facility], [address], [place], [place], [address] , tel: [phone] [facility] Hypertensive heart disease with heart failure Jun-2 0 Gallo Pitts. [address] [facility], [address], [place], [address], [place]. [phone] [facility], [address], [place], [place], [address] , tel: [phone] [facility] Presence of prosthetic heart valveLong term (current) use of anticoagulants Apr-2 2-202 0 Gallo Pitts. [address], [address], [place], [address], . tel:[phone] Referring Provider: Hong Holder, [address], [place], [address] . tel:[phone] [facility], [address], [place], [place], [address] , tel: [phone] [facility] No Information 0 Gallo Pitts. [address], [address], [place], [address], . tel:[phone] [facility], [address], [place], [place], [address] , tel: [phone] [facility] Presence of prosthetic heart valveLong term (current) use of anticoagulants 0 Gallo Pitts. [address], [address], [address], [place]. [phone] Referring Provider: Hong Holder, [address], [place], [address] . tel:[phone] [facility] [address], [place], [place], [address] , tel: [phone] [facility] Presence of prosthetic heart valveLong term (current) use of anticoagulants 0 Gallo Pitts. [address], [address], [address], [place]. tel:[phone] Referring Provider: Hong Holder, [address], [place], [address] . tel:[phone] [facility], [address], [place], [place], [address] , tel: [phone] [facility] Nurse Visit (chief complaint) Presence of prosthetic heart valveLong term (current) use of anticoagulants 0 Gallo Pitts. [address], [address], [place], [place], [address], [place]. tel:[phone] Referring Provider: Hong Holder, [address], [place], [address] . tel:[phone] OFFICE INNDS-EWV-EGS ANDED [facility], [address], [place], [place], [address] , tel: [phone] [facility] Sick (chief complaint)C hronic Conditions (chief complaint) Respiratory illnessEssenti al (primary) hypertension 0 0 Gallo Pitts. [address] , [address], [place], [place], [address], [place]. tel:[phone] Referring Provider: Hong Holder, [address], [place], [address] . tel:[phone] [facility], [address], [place], [place], [address] , tel: [phone] [facility] DizzinessNumbn essSyncope, unspecified syncope type 0 Gallo Pitts. [address] , [address], [place], [place], [address], [place]. tel:[phone] OFFICE RFANR-MIY-RSP LUIS [facility], [address], [place], [place], [address] , tel: [phone] [facility] 3 month (chief complaint)C hronic Conditions (chief complaint) Body mass index (BMI) 31.0-31.9, adultPre-synco peChronic obstructive airway diseasePrimary hyperparathyro idismHypertens julien heart disease with heart failureArterio sclerosis of [place]inn[place] arteries of extremityType 2 diabetes mellitus with diabetic polyneuropathy Vitamin B12 deficiencyChro kaushik diastolic (congestive) heart failureAtheros clerosis of aortaMajor depressive disorder, single episode, in partial remissionParox ysmal atrial fibrillation 0 Gallo Pitts. [address] , [address], [place], [place], [address], [place]. tel:[phone] Referring Provider: Hong Holder, [address], [place], [address] . tel:[phone] [facility] [address], [place], [place], [address] , tel: [phone] [facility] Presence of prosthetic heart valveLong term (current) use of anticoagulants 0 Gallo Pitts. [address] , [address], [address], . tel:[phone] Referring Provider: Hong Holder, [address], [place], [address] . tel:[phone] [facility] [address], [place], [place], [address] , tel: [phone] [facility] Presence of prosthetic heart valveLong term (current) use of anticoagulants Gallo Pitts. [address] , [address], [address], [place]. tel:[phone] Referring Provider: Hong Holder, [address], [place], [address] . tel:[phone] [facility] [address], [place], [address] , tel: [phone] Care Management Atrial fibrillation, unspecified type Gallo Pitts. [address] , [address], [address], [place]. tel:[phone] Transitional Care- First 7 Days Of Discharge [facility] [address], [place], [place], [address] , tel: [phone] [facility] Hospital F/U (chief complaint) Body mass index (BMI) 32.0-32.9, adultAcute frontal sinusitis, recurrence not specifiedAtria l fibrillation, unspecified typeH/O prosthetic heart valve Gallo Pitts. [address] , [address], [address], [place]. tel:[phone] Referring Provider: Hong Holder, [address], [place], [address] . tel:[phone] [facility], [address], [place], [place], [address] , tel: [phone] Care Management No Information Gallo Pitts. [address], [address], [place]. [phone] Referring Provider: Hong Holder, [address], [place], [address] . tel:[phone] [facility], [address], [place], [place], [address] , tel: [phone] Care Management Chronic obstructive airway disease Dec- Gallo Pitts. [address], [address], [place], [address], [place]. [phone] Referring Provider: Hong Holder, [address], [place], [address] . tel:[phone] OFFICE JCQQA-ZUX-WDW LUIS [facility], [address], [place], [place], [address] , tel: [phone] [facility] Follow Up (chief complaint) Obstructive sleep apnea (adult) (pediatric)Mem ory lossAdduluthce care planningCerebr al atherosclerosi sMild cognitive impairment Dec- 9 Gallo Pitts. [address], [address], [address], [place]. [phone] Referring Provider: Hong Holder, [address], [place], [address] . tel:[phone] [facility], [address], [place], [place], [address] , tel: [phone] [facility] Presence of prosthetic heart valveLong term (current) use of anticoagulants Gallo Pitts. [address] , [address], [place], [place], [address], [place]. tel:[phone] Referring Provider: Hong Holder, [address], [place], [address] . tel:[phone] [facility], [address], [place], [place], [address] , tel: [phone] Care Management Presence of prosthetic heart valveLong term (current) use of anticoagulants Gallo Pitts. [address] , [address], [address], [place]. tel:[phone] Referring Provider: Hong Holder, [address], [place], [address] . tel:[phone] OFFICE FRELA-AWP-POT LUIS [facility], [address], [place], [place], [address] , tel: [phone] [facility] 3 month follow up (chief complaint)C hronic Conditions (chief complaint) Benign neoplasm of parathyroid glandVitamin B12 deficiencyIron deficiency anemia, unspecifiedAcu te pain of left shoulder Gallo Pitts. [address], [address], [place], [place], [address], [place]. tel:[phone] Referring Provider: Hong Holder, [address], [place], [address] . tel:[phone] [facility], [address], [place], [place], [address] , [place] tel: [phone] [facility] Presence of prosthetic heart valveLong term (current) use of anticoagulants Gallo Pitts. [address] , [address], [place], [place], [address], [place]. tel:[phone] Referring Provider: Hong Holder, [address], [place], [address] . tel:[phone] [facility], [address], [place], [place], [address] , [place] tel: [phone] [facility] Chest pain, unspecified Gallo Pitts. [address] , [address], [place], [place], [address], [place]. tel:[phone] OFFICE QBYXW-QEI-DZK [facility], [address], [place], [place], [address] , [place] tel: [phone] Care Management SOB , DSOUZA and Weight Gain (chief complaint)C hronic Conditions (chief complaint) Body mass index (BMI) 31.0-31.9, adultNonintrac table headache, unspecified chronicity pattern, unspecified headache typeFinger swellingChroni c obstructive airway disease Gallo Pitts. [address] , [address], [place], [place], [address], [place]. tel:[phone] Referring Provider: Hong Holder, [address], [place], [address] . tel:[phone] OFFICE LBRCA-LXU-LUZ [facility], [address], [place], [place], [address] , [place] tel: [phone] [facility] pain (chief complaint) Primary hyperparathyro idismBody mass index (BMI) 32.0-32.9, adultTrochante tessa bursitis of right hipRotator cuff arthropathy of left shoulder Gallo Pitts. [address] , [address], [place], [place], [address], [place]. tel:[phone] Referring Provider: Hong Holder, [address], [place], [address] . tel:[phone] [facility], [address], [place], [place], [address] , tel: [phone] [facility] Presence of prosthetic heart valveLong term (current) use of anticoagulants Gallo Pitts. [address] , [address], [place], [place], [address], . tel:[phone] Referring Provider: Hong Holder, [address] [facility] [address], [place], [address] . tel:[phone] [facility], [address], [place], [place], [address] , tel: [phone] [facility] Chronic Conditions (chief complaint)h eadache (chief complaint)r t thumb frx (chief complaint) Paroxysmal atrial fibrillationCh ronic diastolic (congestive) heart failureHyperte nsive heart disease with heart failureHyperli pidemia, unspecifiedArt eriosclerosis of [place] arteries of extremityMajor depressive disorder, single episode, in partial remissionGastr o-esophageal reflux disease without esophagitisTyp e 2 diabetes mellitus with diabetic polyneuropathy Atherosclerosi s of aortaBody mass index (BMI) 32.0-32.9, adultDysphagia , unspecifiedTen niko headacheOther nonthrombocyto penic purpuraClosed nondisplaced fracture of distal phalanx of right thumb with routine healing, subsequent encounter Gallo Pitts. [address] [facility], [address], [place], [place], [address], . tel:[phone] Referring Provider: Hong Holder, [address] [facility] [address], [place], [address] . tel:[phone] [facility], [address], [place], [place], [address] , tel: [phone] [facility] Presence of prosthetic heart valveLong term (current) use of anticoagulants Gallo Pitts. [address] [facility], [address], [place], [address], [place]. tel:[phone] Referring Provider: Hong Holder, [address] [facility] [address], [place], [address] . tel:[phone] [facility], [address], [place], [place], [address] , tel: [phone] [facility] Sprain of right thumb, unspecified site of finger, initial encounterPrese nce of prosthetic heart valveLong term (current) use of anticoagulants Gallo Pitts. [address] , [address], [place], [place], [address], . tel:[phone] Referring Provider: Hong Holder, [address], [place], [address] . tel:[phone] [facility], [address], [place], [place], [address] , [place] tel: [phone] [facility] Encounter for exam of blood pressure w/o abnormal findingsPresen ce of prosthetic heart valveLong term (current) use of anticoagulants Gallo Pitts. [address] , [address], [place], [place], [address], [place]. tel:[phone] Referring Provider: Hong Holder, [address], [place], [address] . tel:[phone] [facility], [address], [place], [place], [address] , [place] tel: [phone] [facility] Chronic obstructive airway disease Gallo Pitts. [address] , [address], [place], [address], [place]. tel:[phone] Referring Provider: Hong Holder, [address], [place], [address] . tel:[phone] [facility], [address], [place], [place], [address] , [place] tel: [phone] [facility] Lung diseaseHyperte nsive heart disease with heart failureDysphag ia, unspecifiedRig ht foot pain 9 Gallo Pitts. [address], [address], [place], [address], [place]. tel:[phone] Referring Provider: Hong Holder, [address], [place], [address] . tel:[phone] [facility], [address], [place], [place], [address] , tel: [phone] [facility] Abnormal PFT 9 Gallo Pitts. [address], [address], [place], [place], [address], [place]. tel:[phone] [facility], [address], [place], [place], [address] , tel: [phone] [facility] Presence of prosthetic heart valveLong term (current) use of anticoagulants Gallo Pitts. [address] [employer], [address], [place], [place], [address], [place]. tel:[phone] Referring Provider: Hong Holder, [address] [employer] [address], [place], [address] . tel:[phone] [facility], [address], [place], [place], [address] , tel: [phone] [facility] Paroxysmal atrial fibrillationAg e-related osteoporosis without current pathological fractureMorbid (severe) obesity due to excess caloriesChroni c diastolic (congestive) heart failureHyperte nsive heart disease with heart failureHyperli pidemia, unspecifiedTyp e 2 diabetes mellitus with diabetic peripheral angiopathy without gangreneMajor depressive disorder, single episode, in partial remissionArter iosclerosis of [place] arteries of extremityGastr o-esophageal reflux disease without esophagitisTyp e 2 diabetes mellitus with diabetic polyneuropathy Atherosclerosi s of aortaPresence of prosthetic heart valve Gallo Pitts. [address] [employer], [address], [place], [place], [address], . tel:[phone] [facility], [address], [place], [place], [address] , tel: [phone] [facility] SOB (shortness of breath) on exertion Gallo Pitts. [address] , [address], [place], [place], [address], [place]. tel:[phone] [facility], [address], [place], [place], [address] , tel: [phone] [facility] Presence of prosthetic heart valveLong term (current) use of anticoagulants 9 Gallo Pitts. [address] , [address], [place], [place], [address], [place]. tel:[phone] Referring Provider: Hong Holder, [address] [facility] [address], [place], [address] . tel:[phone] [facility], [address], [place], [place], [address] , tel: [phone] [facility] Acute pain of left shoulder 9 Gallo Pitts. [address] , [address], [address], [place]. tel:[phone] [facility], [address], [place], [place], [address] , [place] tel: [phone] [facility] Acute pain of left shoulderFall, subsequent encounterCoccy dynia 9 Gallo Pitts. [address] , [address], [place], [place], [address], [place]. tel:[phone] Referring Provider: Hong Holder, [address] [facility] [address], [place], [address] . tel:[phone] [facility], [address], [place], [place], [address] , [place] tel: [phone] [facility] Obstructive sleep apneaShortness of breath 8 Gallo Pitts. [address] , [address], [place], [address], [place]. tel:[phone] Referring Provider: Hong Holder, [address] [facility] [address], [place], [address] . tel:[phone] [facility], [address], [place], [place], [address] , tel: [phone] [facility] Presence of prosthetic heart valveLong term (current) use of anticoagulants 8 Gallo Pitts. [address] [employer], [address], [address], [place]. tel:[phone] Referring Provider: Hong Holder, [address] [facility] [address], [place], [address] . tel:[phone] [facility], [address], [place], [place], [address] , tel: [phone] [facility] Paroxysmal atrial fibrillationAg e-related osteoporosis without current pathological fractureBenign neoplasm of parathyroid gland Gallo Pitts. [address] [employer] , [address], [place], [address], . tel:[phone] Referring Provider: Hong Holder, [address] [facility] [address], [place], [address] . tel:[phone] [facility], [address], [place], [place], [address] , tel: [phone] [facility] Presence of prosthetic heart valveLong term (current) use of anticoagulants Gallo Pitts. [address] [employer], [address], [address], [place]. tel:[phone] Referring Provider: Hong Holder, [address], [place], [address] . tel:[phone] [facility], [address], [place], [place], [address] , tel: [phone] [facility] Anemia, unspecifiedPre sence of prosthetic heart valveLong term (current) use of anticoagulants Diverticulitis 8 Gallo Pitts. [address]formerly [employer] [address], [address], [place], [address], [place]. tel:[phone] Referring Provider: Hong Holder, [address], [place], [address] . tel:[phone] [facility], [address], [place], [place], [address] , [place] tel: [phone] [facility] Lower abdominal painDiarrhea, unspecified type 8 Gallo Pitts. [address], [address], [place], [place], [address], [place]. tel:[phone] [facility], [address], [place], [place], [address] , [place] tel: [phone] [facility] Anemia, unspecifiedDiv erticulitis 8 Gallo Pitts. [address], [place], [place], [address], [place]. tel:[phone] [facility], [address], [place], [place], [address] , [place] tel: [phone] [facility] Diverticulitis 8 Gallo Pitts. [address] [facility] [address], [address], [place], [place], [address], [place]. tel:[phone] Referring Provider: Hong Holder, [address] [address], [place], [address] . tel:[phone] [facility], [address], [place], [place], [address] , [place] tel: [phone] [facility] Wedge compression fracture of unsp thor vertebra, sequelaDiverti culitis 8 Gallo Pitts. [address] [facility] [address], [address], [place], [place], [address], [place]. tel:[phone] Referring Provider: Hong Holder, [address] [address], [place], [address] . tel:[phone] [facility], [address], [place], [place], [address] , [place] tel: [phone] [facility] Chronic diastolic (congestive) heart failureUnspeci fied atrial flutterMorbid (severe) obesity due to excess caloriesWedge compression fracture of unsp thor vertebra, sequela Gallo Pitts. [address] , [address], [address], [place]. tel:[phone] Referring Provider: Hong Holder, [address] [facility] [address], [place], [address] . tel:[phone] [facility], [address], [place], [place], [address] , [place] tel: [phone] [facility] Presence of prosthetic heart valveLong term (current) use of anticoagulants Gallo Pitts. [address] , [address], [address], [place]. tel:[phone] Referring Provider: Hong Holder, [address] [facility] [address], [place], [address] . tel:[phone] [facility], [address], [place], [place], [address] , [place] tel: [phone] [facility] Vitamin B12 deficiencyPres ence of prosthetic heart valveLong term (current) use of anticoagulants Gallo Pitts. [address] , [address], [address], [place]. tel:[phone] Referring Provider: Hong Holder, [address] [facility] [address], [place], [address] . tel:[phone] [facility], [address], [place], [place], [address] , [place] tel: [phone] [facility] No Information Gallo Pitts. [address] , [address], [address], [place]. tel:[phone] [facility], [address], [place], [place], [address] , [place] tel: [phone] [facility] Vitamin B12 deficiency Aug-0 Gallo Pitts. [address], [address], [address], . tel:[phone] Referring Provider: Hong Holder, [address], [place], [address] . tel:[phone] [facility], [address], [place], [place], [address] , tel: [phone] [facility] Presence of prosthetic heart valveLong term (current) use of anticoagulants Anemia, unspecified July- Gallo Pitts. [address], [address], [address], . tel:[phone] Referring Provider: Hong Holder, [address], [place], [address] . tel:[phone] [facility], [address], [place], [place], [address] , tel: [phone] [facility] Hypertensive heart disease with heart failureAnemia, unspecified Gallo Pitts. [address], [address], [address], [place]. tel:[phone] Referring Provider: Hong Holder, [address], [place], [address] . tel:[phone] [facility], [address], [place], [place], [address] , tel: [phone] [facility] Presence of prosthetic heart valveLong term (current) use of anticoagulants Gallo Pitts. [address], [address], [address], [place]. tel:[phone] Referring Provider: Hong Holder, [address], [place], [address] . tel:[phone] [facility], [address], [place], [place], [address] , tel: [phone] [facility] Presence of prosthetic heart valveLong term (current) use of anticoagulants 8 Gallo Pitts. [address] [facility], [address], [place], [place], [address], [place]. tel:[phone] Referring Provider: Hong Holder, [address] [facility] [employer] [address], [place], [address] . tel:[phone] [facility], [address], [place], [place], [address] , tel: [phone] [facility] Lumbar spondylosisSho rtness of breath 8 Gallo Pitts. [address] , [address], [place], [place], [address], [place]. [phone] Referring Provider: Hong Holder, [address], [place], [address] . tel:[phone] [facility] [address], [place], [place], [address] , [place] tel: [phone] [facility] Major depressive disorder, single episode, in partial remissionPrima ry hyperparathyro idismGastro-es ophageal reflux disease without esophagitisCer ebral atherosclerosi sHyperlipidemi a, unspecifiedArt eriosclerosis of [place] arteries of extremityType 2 diabetes mellitus with diabetic peripheral angiopathy without gangreneScreen ing for osteoporosisPa roxysmal atrial fibrillationLo ng term (current) use of anticoagulants Presence of prosthetic heart valvePost-halima pausal 0 8 Gallo Pitts. [address], [address], [place], [place], [address], [place]. [phone] Referring Provider: Hong Holder, [address], [place], [address] . tel:[phone] [facility], [address], [place], [place], [address] , tel: [phone] [facility] Presence of prosthetic heart valveLong term (current) use of anticoagulants Jun-2 8 Gallo Pitts. [address] [facility] [address], [address], [address], . tel:[phone] Referring Provider: Hong Holder, [address] [facility] [address], [place], [address] . tel:[phone] [facility], [address], [place], [place], [address] , tel: [phone] [facility] Hypertensive heart disease with heart failure Jun-2 8 Gallo Pitts. [address] [facility] [address], [address], [address], [place]. tel:[phone] Referring Provider: Hong Holder, [address] [facility] [address], [place], [address] . 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 [address] [facility] [employer] [address], [address], [address], [place]. tel:[phone] Referring Provider: Hong Holder, [address] [facility] [employer] [address], [place], [address] . tel:[phone] [facility], [address], [place], [place], [address] , tel: [phone] [facility] Type 2 diabetes mellitus with diabetic polyneuropathy Body mass index (BMI) 40.0-44.9, adult Mar-0 2- 8 Micha Jaylyn. [address], [address]. tel:[phone] Referring Provider: Hong Holder, [address], [place], [address] . tel:[phone] [facility], [address], [place], [place], [address] , [place] tel: [phone] [facility] Encntr screen mammogram for malignant neoplasm of breast 8 Gallo Pitts. [address], [address], [place], [place], [address], [place]. tel:[phone] [facility], [address], [place], [place], [address] , tel: [phone] [facility] Low back pain 8 Gallo Pitts. [address], [address], [place], [place], [address], [place]. tel:[phone] [facility], [address], [place], [place], [address] , tel: [phone] [facility] Presence of prosthetic heart valveLong term (current) use of anticoagulants Gallo Pitts. [address] , [address], [place], [place], [address], [place]. tel:[phone] Referring Provider: Hong Holder, [address], [place], [address] . tel:[phone] [facility], [address], [place], [place], [address] , tel: [phone] [facility] shelter (current) use of anticoagulants Presence of prosthetic heart valve 8 Gallo Pitts. [address] , [address], [place], [place], [address], [place]. tel:[phone] Referring Provider: Hong Holder, [address] [facility] [address], [place], [address] . tel:[phone] [facility], [address], [place], [place], [address] , [place] tel: [phone] [facility] Osteoporosis, unspecified osteoporosis type, unspecified pathological fracture presence 8 Demetrius Schilling. [address], [place], [place], [address]. tel:[phone] [facility], [address], [place], [place], [address] , tel: [phone] [facility] Low back painAtheroscle rosis of aortaPolymyalg ia rheumaticaHear t failure, unspecifiedTyp e 2 diabetes mellitus with diabetic polyneuropathy Morbid (severe) obesity due to excess calories Gallo Pitts. [address] [employer])[address] , [address], [place], [place], [address], [place]. tel:[phone] Referring Provider: Hong Holder, [address] [facility] [employer] [address], [place], [address] . tel:[phone] [facility], [address], [place], [place], [address] , tel: [phone] [facility] shelter (current) use of anticoagulants Presence of prosthetic heart valve Gallo Pitts. [address] [facility] [employer] [address], [address], [place], [place], [address], [place]. tel:[phone] Referring Provider: Hong Holder, [address] [facility] [employer] [address], [place], [address] . tel:[phone] [facility] [address], [place], [place], [address] , tel: [phone] [facility] Presence of prosthetic heart valveLong term (current) use of anticoagulants Gallo Pitts. [address] [facility] [employer], [address], [place], [place], [address], [place]. tel:[phone] Referring Provider: Hong Holder, [address] [facility] [employer] [address], [place], [address] . tel:[phone] [facility] [address], [place], [place], [address] , tel: [phone] [facility] Strain of lumbar region, subsequent encounter Gallo Pitts. [address] [facility], [address], [address], . tel:[phone] Referring Provider: Hong Holder, [address], [place], [address] . 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 [address], [address], [place], [address], [place]. tel:[phone] Referring Provider: Hong Holder, [address], [place], [address] . 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 [address], [address], [address], [place]. tel:[phone] Referring Provider: Hong Holder, [address], [place], [address] . tel:[phone] [facility] [address], [place], [place], [address] , tel: [phone] [facility] Polymyalgia rheumaticaHear t failure, unspecifiedArt eriosclerosis of [place] arteries of extremityType 2 diabetes mellitus with diabetic peripheral angiopathy without gangreneAthero sclerosis of aortaMorbid (severe) obesity due to excess caloriesEncntr screen mammogram for malignant neoplasm of breastLong term (current) use of anticoagulants Presence of prosthetic heart valveHyperlipi demia, unspecifiedCer ebral atherosclerosi sGastro-esopha geal reflux disease without esophagitis Gallo Pitts. [address] [employer], [address], [address], [place]. tel:[phone] Referring Provider: Hong Holder [address], [place], [address] . tel:[phone] [facility], [address], [place], [place], [address] , tel: [phone] [facility] Knee pain, unspecified chronicity, unspecified laterality 7 Gallo Pitts. [address], [address], [address], [place]. tel:[phone] [facility], [address], [place], [place], [address] , [place] tel: [phone] [facility] shelter (current) use of anticoagulants Presence of prosthetic heart valve Gallo Pitts. [address], [address], [address], [place]. tel:[phone] Referring Provider: Hong Holder, [address], [place], [address] . tel:[phone] [facility], [address], [place], [place], [address] , [place] tel: [phone] [facility] Iron deficiency anemia, unspecified iron deficiency anemia type Gallo Pitts. [address], [address], [address], [place]. 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 [address], [address], [address], [place]. tel:[phone] Referring Provider: Hong Holder, [address], [place], [address] . tel:[phone] [facility], [address], [place], [place], [address] , [place] tel: [phone] [facility] Iron deficiency anemia, unspecified iron deficiency anemia type Aug- Gallo Pitts. [address], [place], [place], [address], [place]. tel:[phone] [employer], [address], [place], [place], [address] , tel: [phone] [facility] Anemia, unspecified Gallo Pitts. [address], [address], [place], [place], [address], [place]. tel:[phone] Referring Provider: Hong Holder, [address], [place], [address] . tel:[phone] [employer] [facility], [address], [place], [place], [address] , [place] tel: [phone] [facility] Presence of prosthetic heart valveLong term current use of anticoagulant therapyAnemia, unspecified Galol Pitts. [address], [address], [place], [place], [address], [place]. tel:[phone] [facility], [address], [place], [place], [address] , tel: [phone] N[facility] Type 2 diabetes mellitus with polyneuropathy Demetrius Schilling. [address], [address], [place], [place], [address]. tel:[phone] [facility], [address], [place], [place], [address] , [place] tel: [phone] [facility] Shortness of breathPolymyal carmen rheumaticaPres ence of prosthetic heart valvePrimary hyperparathyro idismMajor depressive disorder, single episode, in partial remission Gallo Pitts. [address], [address], [place], [place], [address], [place]. tel:[phone] Referring Provider: Hong Holder, [address], [place], [address] . tel:[phone] [facility], [address], [place], [place], [address] , tel: [phone] [facility] Dizziness and giddinessPolym yalgia rheumatica Gallo Pitts. [address], [address], [address], . tel:[phone] Referring Provider: Hong Holder, [address], [place], [address] . tel:[phone] [facility], [address], [place], [place], [address] , tel: [phone] [facility] MyalgiaBilater al shoulder pain, unspecified chronicity Gallo Pitts. [address] , [address], [address], . tel:[phone] Referring Provider: Hong Holder, [address], [place], [address] . tel:[phone] [facility], [address], [place], [place], [address] , tel: [phone] [facility] H/O mechanical aortic valve replacementLon g term current use of anticoagulant therapy Gallo Pitts. [address] , [address], [address], [place]. tel:[phone] Referring Provider: Hong Holder, [address], [place], [address] . tel:[phone] [facility], [address], [place], [place], [address] , tel: [phone] [facility] H/O mechanical aortic valve replacementLon g term current use of anticoagulant therapy Gallo Pitts. [address], [address], [address], [place]. tel:[phone] Referring Provider: Hong Holder, [address], [place], [address] . tel:[phone] [facility] [address], [place], [place], [address] , tel: [phone] [facility] Bilateral arm painBilateral shoulder pain, unspecified chronicity Jun-2 4-201 7 Gallo Pitts. [address], [address], [address], [place]. [phone] Referring Provider: Hong Holder, [address], [place], [address] . tel:[phone] [facility] [address], [place], [place], [address] , tel: [phone] [facility] Bilateral leg cramps Jun-2 0- 7 Gallo Pitts. [address], [address], [address], [place]. tel:[phone] Referring Provider: Hong Holder, [address], [place], [address] . tel:[phone] [facility] [address], [place], [place], [address] , tel: [phone] [facility] H/O mechanical aortic valve replacementLon g term current use of anticoagulant therapy May-3 0-201 7 Gallo Pitts. [address], [address], [address], [place]. [phone] Referring Provider: Hong Holder, [address], [place], [address] . tel:[phone] [facility] [address], [place], [place], [address] , tel: [phone] [facility] H/O mechanical aortic valve replacementLon g term current use of anticoagulant therapy May-2 3-201 7 Gallo Pitts. [address], [place], [place], [address], [place]. [phone] Referring Provider: Hong Holder, [address], [place], [address] . tel:[phone] [facility], [address], [place], [place], [address] , tel: [phone] [facility] H/O mechanical aortic valve replacementLon g term current use of anticoagulant therapy 7 Gallo Pitts. [address], [place], [place], [address], [place]. tel:[phone] Referring Provider: Hong Holder, [address], [place], [address] . tel:[phone] [facility], [address], [place], [place], [address] , [place] tel: [phone] [facility] Neck painH/O mechanical aortic valve replacement 7 Gallo Pitts. [address], [place], [place], [address], [place]. tel:[phone] [facility], [address], [place], [place], [address] , [place] tel: [phone] [facility] Acute non-recurrent sinusitis, unspecified location 7 Gallo Pitts. [address], [address], [place], [place], [address], [place]. tel:[phone] Referring Provider: Hong Holder, [address], [place], [address] . tel:[phone] [facility], [address], [place], [place], [address] , [place] tel: [phone] [facility] H/O mechanical aortic valve replacementLon g term current use of anticoagulant therapy 0 7 Gallo Pitts. [address], [address], [address], [place]. [phone] Referring Provider: Hong Holder, [address], [place], [address] . tel:[phone] [facility], [address], [place], [place], [address] , tel: [phone] [facility] Type 2 diabetes mellitus with polyneuropathy Hammer toe of left footAcute bilateral low back pain without sciatica 7 Gallo Pitts. [address], [place], [place], [address], [place]. tel:[phone] Referring Provider: Hong Holder, [address], [place], [address] . tel:[phone] [facility], [address], [place], [place], [address] , tel: [phone] [facility] Obstructive sleep apnea 0 6 Gallo Pitts. [address] [employer], [place], [place], [address], [place]. tel:[phone] [facility], [address], [place], [place], [address] , tel: [phone] [facility] Major depressive disorder, single episode, in partial remissionH/O mechanical aortic valve replacementTyp e 2 diabetes mellitus with polyneuropathy 6 Gallo Pitts. [address] [facility] [employer], [address], [place], [place], [address], [place]. tel:[phone] Referring Provider: Hong Holder, [address], [place], [address] . tel:[phone] [facility], [address], [place], [place], [address] , tel: [phone] [facility] Complicated griefDisappear ance and of family memberMajor depressive disorder, single episode, in partial remission 2-201 6 Gallo Pitts. [address] [facility], [address], [place], [place], [address], [place]. tel:[phone] [facility], [address], [place], [place], [address] , [place] tel: [phone] [facility] No Information 6 Gallo Pitts. [address] [facility] [address], [address], [place], [place], [address], [place]. tel:[phone] Referring Provider: Maria T Ramon, [address], [place], [address] . tel:[phone] [facility], [address], [place], [place], [address] , [place] tel: [phone] [facility] Complicated griefDisappear ance and of family memberNeck pain 6 Gallo Pitts. [address] [facility], [address], [place], [place], [address], [place]. tel:[phone] Referring Provider: Hong Holder, [address] [facility] [employer] [address], [place], [address] . tel:[phone] [facility], [address], [place], [place], [address] , [place] tel: [phone] [facility] Atherosclerosi s of aorta 6 Gallo Pitts. [address] [facility], [address], [place], [place], [address], [place]. tel:[phone] Referring Provider: Hong Holder, [address] [facility] [employer], [place], [address] . tel:[phone] [facility], [address], [place], [place], [address] , [place] tel: [phone] [facility] Tear of right rotator cuff, unspecified tear extent 6 Gallo Pitts. [address] [facility] [employer], [address], [place], [place], [address], [place]. tel:[phone] [facility], [address], [place], [place], [address] , tel: [phone] [facility] Type 2 diabetes mellitus with polyneuropathy Chronic right shoulder pain 3 6 Gallo Pitts. [address] , [address], [place], [place], [address], . tel:[phone] Referring Provider: Hong Holder, [address], [place], [address] . tel:[phone] [facility], [address], [place], [place], [address] , tel: [phone] [facility] H/O mechanical aortic valve replacementLon g term current use of anticoagulant therapy 0 6 Gallo Pitts. [address], [address], [address], . tel:[phone] Referring Provider: Hong Holder, [address], [place], [address] . tel:[phone] [facility], [address], [place], [place], [address] , tel: [phone] [facility] H/O mechanical aortic valve replacementLon g term current use of anticoagulant therapy 6 Gallo Pitts. [address] , [address], [place], [place], [address], . tel:[phone] Referring Provider: Hnog Holder, [address], [place], [address] . tel:[phone] [facility], [address], [place], [place], [address] , tel: [phone] [facility] Dyspnea on effort 6 Gallo Pitts. [address], [address], [address], . tel:[phone] [facility], [address], [place], [place], [address] , tel: [phone] [facility] H/O mechanical aortic valve replacementLon g term current use of anticoagulant therapy 3 6 Gallo Pitts. [address], [address] [address], [place], [place], [address], [place]. [phone] Referring Provider: Hong Holder, [address], [place], [address] . tel:[phone] [facility], [address], [place], [place], [address] , [place] tel: [phone] [facility] Neck painBilateral shoulder pain, unspecified chronicityPain in left shoulder 6 Gallo Pitts. [address], [place], [place], [address], [place]. tel:[phone] [facility], [address], [place], [place], [address] , [place] tel: [phone] [facility] H/O mechanical aortic valve replacementLon g term current use of anticoagulant therapy 6 Gallo Pitts. [address], [address], [place]. tel:[phone] Referring Provider: Hong Holder, [address], [place], [address] . tel:[phone] [facility], [address], [place], [place], [address] , [place] tel: [phone] [facility] H/O mechanical aortic valve replacementLon g term current use of anticoagulant therapy 6 Gallo Pitts. [address], [address], [place]. tel:[phone] Referring Provider: Hong Holder, [address], [place], [address] . tel:[phone] [facility], [address], [place], [place], [address] , [place] tel: [phone] [facility] H/O mechanical aortic valve replacementLon g term current use of anticoagulant therapy 6 Gallo Pitts. [address], [place], [place], [address], [place]. tel:[phone] Referring Provider: Hong Holder, [address], [place], [address] . tel:[phone] [facility], [address], [place], [place], [address] , tel: [phone] [facility] Encounter for immunizationNe ck painH/O mechanical aortic valve replacementChr onic kidney disease, stage 1 6 Gallo Pitts. [address], [place], [place], [address], [place]. tel:[phone] Referring Provider: Hong Holder, [address], [place], [address] . tel:[phone] [facility], [address], [place], [place], [address] , [place] tel: [phone] [facility] Chest pain, unspecified 6 Gallo Pitts. [address], [place], [place], [address], [place]. tel:[phone] [facility], [address], [place], [place], [address] , tel: [phone] [facility] H/O mechanical aortic valve replacementLon g term current use of anticoagulant therapy 6 Gallo Pitts. [address], [place], [place], [address], [place]. tel:[phone] [facility], [address], [place], [place], [address] , [place] tel: [phone] [facility] Chronic kidney disease, stage 1Type 2 diabetes mellitus with polyneuropathy Nonintractable headache, unspecified chronicity pattern, unspecified headache type 6 Gallo Pitts. [address], [place], [place], [address], [place]. [phone] Referring Provider: Hong Holder, [address], [place], [address] . tel:[phone] [facility], [address], [place], [place], [address] , tel: [phone] [facility] H/O mechanical aortic valve replacement 6 Gallo Pitts. [address], [place], [place], [address], [place]. tel:[phone] Referring Provider: Hong Holder, [address], [place], [address] . tel:[phone] [facility], [address], [place], [place], [address] , tel: [phone] [facility] Morbid obesity, unspecified obesity typeType 2 diabetes mellitus with stage 1 chronic kidney diseaseChronic kidney disease, stage 1Type 2 diabetes mellitus with polyneuropathy H/O mechanical aortic valve replacementMaj or depressive disorder, single episode, in partial remissionGERD without esophagitisPri valentina osteoarthritis involving multiple joints 6 Gallo Pitts. [address], [address], [place]. tel:[phone] Referring Provider: Hong Holder, [address], [place], [address] . tel:[phone] [facility], [address], [place], [place], [address] , tel: [phone] [facility] Aortic valve replaced 6 Gallo Pitts. [address], [address], [place]. tel:[phone] Referring Provider: Hong Holder, [address], [place], [address] . tel:[phone] [facility], [address], [place], [place], [address] , tel: [phone] [facility] Aortic valve replaced 6 Gallo Pitts. [address], [place], [place], [address], [place]. [phone] Referring Provider: Hong Holder, [address], [place], [address] . tel:[phone] Family History Family Member Type Diagnosis Age At Onset Mother Problem (finding) depression Mother Problem (finding) coronary arterioscleros is Mother Problem (finding) Peripheral vascular dis ease Immunizations Vaccine Date Status Comments Fluzone High-Dose, [...] er Payers Payer name Insurance type Covered green party ID Authoriza tion(s) [employer] MB [id number] [employer] HEALTHDermira MB [id number] [employer] HE[employer] MB [id number] [employer] MB [id number] We Cut The GlassPLAN MB [id number] i-Nalysis MB [id number] [employer]-Nalysis MB [id number] [employer] MB [id number] Social History Type Description Quantity Date Captured [...] 09/08/2019 ordered Referral Referred To: Home Care [phone] Ordered: Referrals: Home Care. Location: [facility]. Evaluation/diagnostic/treatment - Level 3 ordered Referral Referred To: [address]
[facility] [address] [place], [phone] Ordered: MRI brain wo contrast ordered Referral Referred To: Service CPAP equipment Ordered: Referrals: Service CPAP equipment ordered Referral Referred To: Maurice Paredes [address] [facility] [address] [place], [place], [phone] Ordered: Referrals: Cardiology. Maurice Paredes. Evaluation/diagnostic/treatment - Level 3 ordered Referral Referred To: [facility] [address] [place], [phone] Ordered: Modified barium swallow ordered History Of [...] intake. Hospital F/U Patient was seen at [facility] due to irregular heartbeat Patient felt she [...] Follow Up Patient was t reated at [facility] for atrial fibrillation with RVR and was discharged on December. She saw a content designer in the hospital. She is having progressive memory problems. This has come to the attention of her content designer. She is managing her own affairs. She [...] follow up Here for a 3 m [facility] follow up. Patient states her shoulders have [...] patient also c/o pain in the right congregation. she denies jaw claudication. She has no [...] mellitus with diabetic peripheral angiopathy without gangrene Status: Meeting sherron tment plan goals. Goals: [...] Related to Chronic diastolic (congestive) heart failure protime today Related to Prese nce of prosthetic heart valve Blood pressure is co ntrolledno changes Related [...] Colace to the pharmacy.Information was provided regarding [id number] benefits through [employer] to help with coverage.Please call the office [...] will check your INR today Related to shelter (current) use of anticoagulants This is due to your chronic kidney disease.We will continue to monitor your parathyroid level through lab work Related to Secondary hyperparathyroidism The iron supplementa tion as prescribed.We will check your blood counts and iron levels again today Related to Iron deficiency anemia, unspecified Medication managemen t has significantly improved.We are also happy to hear family is visiting quite often.Continue to use your pill environmental emergencies planner and call the office with any significant changes in your memory Related to Vascular dementia without behavioral disturbance Your blood pressure is well controlled today.Continue [...] Related to Chronic diastolic (congestive) heart failure see abovereturn to [place] [place] in 1 monthcall me with questions or concernscmp cbc pt/inr to be checked 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 Make sure you are drinking plenty of water.avoid NSAIDs like ibuprofen, advil, aleve, motrin. tylenol is ok to take. Related to Chronic kidney disease, stage 3 (moderate) Disease process we will discuss the use [...] Related to Vascular dementia without behavioral disturbance keep scheduled follo w up with the CardiologistINR checked today and will be managed by our office Related to Presence of prosthetic heart valve see above Related to shelter (current) use of anticoagulants we monitor this thro [facility] labs. Make sure you are drinking plenty of water.avoid NSAIDs like ibuprofen, advil, aleve, motrin. tylenol is ok to take. Related to Chronic kidney disease, stage 3 (moderate) Status: Able to self -manage condition. Goals: [...] mellitus with diabetic peripheral angiopathy without gangrene BP is stableno changes Related t o Hypertensive heart and chronic kidney disease with heart failure and stage 1 through stage 4 chronic kidney disease, or unspecified chronic kidney disease Continue with furose mide at current dose. [...] vascular claudication symptoms. 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 Related to Hypertensive heart disease with heart failure We will monitor blood calcium le jaqueline. Related to Primary hyperparathyroidism continue with Pro r inhaler as needed. [...] your amiodarone and follow up with your content designer. Related to Atrial fibrillation, unspecified type I [...] sister would serve as your power of trust and estates attorney for nam care decisions. You NEED [...] needed. Related to Chronic obstructive airway disease continue tylenolplea se fill your new eyeglass prescription and then let me know how it goes with your headache. Related to Nonintractable headache, unspecified chronicity pattern, unspecified headache type You can use warm com presses or warm soaks on your left index finger. Related to Finger swelling Dietary management e ducation, guidance, and counseling [...] to Rotator cuff arthropathy of left shoulder Dietary management e ducation, guidance, and counseling Related to Body mass index (BMI) 32.0-32.9, adult Disease process Continue routine ski n care including moisturizer and protection from sun. Related to Other nonthrombocytopenic purpura continue metformin at current do se. Related to Type 2 diabetes mellitus with diabetic polyneuropathy we will continue to address modifiable risk factors Related to Atherosclerosis of aorta continue with omeprazole. Relate d to Gastro-esophageal reflux disease without esophagitis continue with venlafaxine. Relat ed to Major depressive disorder, single episode, in partial remission continue atorvastatin. Related t o Hyperlipidemia, unspecified continue with atorvastatin. 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 Related to [...]
--- OUTSIDE RECORDS SUMMARY | 2024-05-28 21:25 | XMS_ITS | Clinical Summary ---
Author Organization [facility] Address [address] [place] [address] Care Team Providers Care Electric Meter Repairer Apprentice Name Role Phone Juan Pablo Dominguez MD Primary Care Provider Unavailabl e Source Comments [facility],non-owned Affiliates and Associated Physician Practices is amultiple site organization consisting of ambulatory clinics and hospital sitesin [place], [place], [place]. This disclosure is being madepursuant to the Care Everywhere program and may not contain all information available regarding this patient. Last updated 17.[employer] [facility] Allergies No known active allergies Medications * [...] Last Done Comments BONE DENSITY TESTING 1945 MEDICARE AWV 12 MONTHS 1945 DTAP/TDAP/TD VACCINES (1 - Tdap) 05/23/1963 PNEUMOCOCCAL VACCINE 50+ (1 of 1 - PCV) 1994 ZOSTER VACCINE (1 of 2) 1994 Respiratory Syncytial Virus (RSV) Vaccine Pt: or over 60 yrs (1 - 1-dose 75+ series) 05/23/2019 COVID-19 VACCINE (5 - season) 2023 08/29/2021, 02/23/2021, 06/01/2020, Additional [...] complete this topic MENINGOCOCCAL (Group B) VACCINE SHARED DECISION-MAKING Aged Out No longer eligible based on patient's age to complete this topic MENINGOCOCCAL GROUPS A/C/Y/W VACCINE Aged Out No longer eligible based on patient's age to complete this topic Advance Directives * Full Code (Latest Code Status on File) Date Activated Date Inactivated Comments 08/09/2020 4:06 AM 08/11/2020 4:47 PM Care Teams Electric Meter Repairer Apprentice Relationship Specialty Start Date End Date Juan Pablo Dominguez MD PCP - General Family Medicine 08/09/20
--- OUTSIDE RECORDS SUMMARY | 2024-05-28 21:25 | XMS_ITS | Clinical Summary ---
Author Organization [facility] [address] Address [address] [place] [address] Care Team Providers Care Door Liner Name Role Phone Sanjeev Webster DO Primary Care Provide r Allergies Active Allergy Reactions Criticality Noted Date Comments Atorvastatin Muscle pain,Other (See comments) High 08/12/2021 Leg pain/cramps. Resolved after stopping. Bacitracin Benzalkonium Cortisone Rash,Unknown High 08/02/2023 Gramicidin D Hydrocortisone Neomycin Otnvkdxh-Oovjjcrpxi-Qwmkf yxin Other (See comments) Low 07/31/2020 It [...] Date Diagnosed Date Hyperthyroidism 09/12/2021 Atrial fibrillation 08/22/2020 Anemia 08/14/2020 Assessment & Plan (08/14/2020 [...] monitor 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 toxicity with meterman u se 05/06/2019 Coronary artery disease invo lving [place] coronary artery of [place] heart without angina pectoris 05/06/2019 Abnormal stress test 05/06/2019 Bradycardia 05/06/2019 LBBB (left bundle branch block) 12/08/2018 Myopathy 02/17/2018 Paroxysmal atrial flutter ([facility]) 08/12/2017 Assessment & Plan (08/14/2020 8:04 AM [...] a associated with type 2 diabetes mellitus ([facility]/HCC) 07/16/2015 Overview (06/13/2016): DM type 2 with [...] Type Department Care Team Description 05/03/2024 Telephone [facility] Card[facility] [address] [place] [address] Paxton Villela MD Atrial Fibrillation 02/29/2024 10:30 AM FARM MECHANIC Office Visit [facility] Cardiology [address] [place] [address] Paxton Villela MD History of mechanical aortic valve replacement (Primary Dx); Hypertension associated with diabetes (HCC); Coronary artery disease involving [place] coronary artery of [place] heart without angina pectoris; LBBB (left bundle [...] on file Legal Sex Female 6:10 AM FARM MECHANIC Gender Identity Not on file Sexual Orientation Not on file Obstetrics History Last Filed Vital Signs Vital Sign Reading Time Taken Comments Blood Pressure 90/64 02/29/2024 10:36 AM FARM MECHANIC Pulse 68 02/29/2024 10:36 AM FARM MECHANIC Temperature 36.6 C (97.8 F) 08/17/2020 12:52 AM CDT Respiratory Rate 20 08/17/2020 12:52 AM CDT Oxygen Saturation 98% 02/29/2024 10:36 AM FARM MECHANIC Inhaled Oxygen Concentration - - Weight 79.8 kg (176 lb) 02/29/2024 10:36 AM FARM MECHANIC Height 165.1 cm (5' 5 ) 02/29/2024 10:36 AM FARM MECHANIC Body Mass Index 29.29 02/29/2024 10:36 AM FARM MECHANIC Plan of Treatment Health Maintenance Due Date Last Done Comments Albumin Creatinine Ratio, Urine 1945 Dilated Eye Exam 1945 Foot Exam [...] [facility] Comment: Interpretive Data Reference Interval Normal >/= [...] MD LAB BLOOD ORDERABLES [facility] [address] [facility] Department [place] [address] * (ABNORMAL) Hemoglobin A1c (08/14/2020 9:38 AM CDT) Hgb A1C 6.0(H) 4.0 - 5.6 % [facility] Estimated Average Glucose 126 mg/dL [facility] Comment: The ADA recommends reporting an estimated Average Glucose (eAG) with all Hemoglobin A1c results using the equation derived from a study of 507 normal and diabetic adults. Minority populations were underrepresented and children were not included. (Diabetes Care 31:0349-6363, 2008). The eAG is not equivalent to a fasting glucose. Blood specimen (specimen) 08/14/2020 9:38 AM CDT 08/14/2020 9:54 AM CDT us Amparo Vergara MD LAB BLOOD ORDERABLES Final Resul t [facility] [address] [facility] Department [place] [address] from Last 3 Months or Most Recently Relevant to Health Maintenance Insurance [facility] [facility] [facility] Advance Directives For more information, please contact: [phone] Documents on File Type Date Recorded Patient Change Management Coordinator Expl anation ADVANCE DIRECTIVE 09/04/2020 1:26 PM [facility] D[facility] ADVANCE DIRECTIVE 09/03/2020 12:52 PM ADVANCE DIRECTIVE 08/16/2020 11:40 AM OUTS [facility] * Full Code (Latest Code Status on File) Date Activated Date Inactivated Comments 08/11/2020 6:08 PM 08/17/2020 5:34 PM Care Teams Door Liner Relationship Specialty Start Date End Date Sanjeev Webster DO [address] [place] [address] PCP - General Family Medicine 03/11/21
--- OUTSIDE RECORDS SUMMARY | 2024-05-28 21:25 | XMS_ITS | Referral Summary ---
Author Organization [facility] [address] [place] [address] [address] [facility] [address] [place] [address] Care Team Providers Care Forestry Aid Technician Name Role Phone Sanjeev Webster DO Primary Care Provide r Encounters Date Type Department Care Team Description 05/03/2024 Telephone [facility] Cardiology [address] [facility] [address] [place] [address] Paxton Villela MD Atrial Fibrillation 02/29/2024 10:30 AM ELEMENTARY EDUCATOR Office Visit [facility] Cardiology [address] [place] [address] [address] [place] [address] Paxton Villela MD History of mechanical aortic valve replacement (Primary Dx); Hypertension associated with diabetes (HCC); Coronary artery disease involving [place] coronary artery of [place] heart without angina pectoris; LBBB (left bundle branch block); Persistent atrial fibrillation (HCC); Hypertensive heart disease with congestive heart failure, unspecified heart failure type (HCC) from Last 3 Months Allergies Active Allergy Reactions Criticality Noted Date Comments Atorvastatin Muscle pain,Other (See comments) High 08/12/2021 Leg pain/cramps. Resolved after stopping. Bacitracin Benzalkonium Cortisone Rash,Unknown High 08/02/2023 Gramicidin D Hydrocortisone Neomycin Fnzbchmy-Yvlezhtoxz-Ylsaj yxin Other (See comments) Low 07/31/2020 It [...] monitor 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 toxicity with mcc u se 05/06/2019 Coronary artery disease invo lving [place] coronary artery of [place] heart without angina pectoris 05/06/2019 Abnormal stress [...] a associated with type 2 diabetes mellitus ([facility]) 07/16/2015 Overview (06/13/2016): DM type [...] on file Legal Sex Female 6:10 AM ELEMENTARY EDUCATOR Gender Identity Not on file Sexual Orientation Not on file Last Filed Vital Signs Vital Sign Reading Time Taken Comments Blood Pressure 90/64 02/29/2024 10:36 AM ELEMENTARY EDUCATOR Pulse 68 02/29/2024 10:36 AM ELEMENTARY EDUCATOR Temperature 36.6 C (97.8 F) 08/17/2020 12:52 AM CDT Respiratory Rate 20 08/17/2020 12:52 AM CDT Oxygen Saturation 98% 02/29/2024 10:36 AM ELEMENTARY EDUCATOR Inhaled Oxygen Concentration - - Weight 79.8 kg (176 lb) 02/29/2024 10:36 AM ELEMENTARY EDUCATOR Height 165.1 cm (5' 5 ) 02/29/2024 10:36 AM ELEMENTARY EDUCATOR Body Mass Index 29.29 02/29/2024 10:36 AM ELEMENTARY EDUCATOR Plan of Treatment Not on file Procedures [...] LAB BLOOD ORDERABLES Final Resul t [facility] [address] [facility] Department [place] [address] * (ABNORMAL) Hemoglobin A1c (08/14/2020 9:38 AM CDT) Hgb A1C 6.0(H) 4.0 - 5.6 % [facility] Estimated Average Glucose 126 mg/dL [facility]E Comment: The ADA recommends reporting an estimated Average Glucose (eAG) with all Hemoglobin A1c results using the equation derived from a study of 507 normal and diabetic adults. Minority populations were underrepresented and children were not included. (Diabetes Care 31:0126-6565, 2008). The eAG is not equivalent to a fasting glucose. Blood specimen (specimen) 08/14/2020 9:38 AM CDT 08/14/2020 9:54 AM CDT Amparo Vergara MD LAB BLOOD ORDERABLES Final Resul t [facility] [address] [facility] Department [place] [address] from Last 3 Months or Most Recently Relevant to Health Maintenance Insurance [facility] HEALTHCARE [facility] HEALTHCARE [facility] Advance Directives For more information, please contact: [phone] Documents on File Type Date Recorded Patient Roll Plugger Machine Operator Expl anation ADVANCE DIRECTIVE 09/04/2020 1:26 PM OUTSI [facility] DNR ADVANCE DIRECTIVE 09/03/2020 12:52 PM ADVANCE DIRECTIVE 08/16/2020 11:40 AM OUTS [facility] D[facility] * Full Code (Latest Code Status on File) Date Activated Date Inactivated Comments 08/11/2020 6:08 PM 08/17/2020 5:34 PM Care Teams Forestry Aid Technician Relationship Specialty Start Date End Date Sanjeev Webster DO [address] [place] [address] PCP - General Family Medicine 03/11/21
--- OUTSIDE RECORDS SUMMARY | 2024-05-28 21:25 | XMS_ITS | Clinical Summary ---
Author Organization [facility] Address [address] [place] [address] Care Team Providers Care Quantity Surveyor Name Role Phone Dianne Johnson RN Unavailable [phone] Suleman Montez DO Primary Care Provider + Allergies Active [...] :Chronic obstructive pulmonary disease, unspecified COPD type ([facility]) INHALE 2 PUFFS BY MOUTH EVERY 6 HOURS NEEDED FOR WHEEZING 18 g 5 023 Active Blood Glucose Monitoring Suppl (ONE TOUCH ULTRA 2) w/Device KitIndications:Typ e 2 diabetes mellitus with stage 3b chronic kidney disease, without long-term current use of insulin ([facility]) 1 Device by Does not apply route daily. 1 kit 023 Active Lancets (ONETOUCH ULTRASOFT) lancetsIndications :Type 2 diabetes mellitus with stage 3b chronic kidney disease, without long-term current use of insulin ([facility]) 1 each by Other route as needed. Use as instructed 100 each 3 023 Active Glucose Blood (BLOOD GLUCOSE TEST STRIPS) StripIndications:T ype 2 diabetes mellitus with stage 3b chronic kidney disease, without long-term current use of insulin ([facility]) 1 Device by Does not apply route daily. 100 strip 3 023 Active methIMAzole (TAPAZOLE) 5 MG [...] once daily 90 tablet 1 024 Active metoprolol succinate ER (TOPROL-XL) 25 MG 24 hr tabletIndications: Atrial fibrillation with RVR (CMS/HCC HHS/HCC) Take 1 tablet (25 mg total) by mouth daily. 90 tablet 024 Active warfarin (COUMADIN) 1 MG tabletIndications: H/O mechanical aortic valve replacement,Chroni c anticoagulation Take 1 tablet (1 mg total) by mouth daily. 30 tablet 024 Active alendronate (FOSAMAX) 35 MG tablet Take 1 tablet (35 mg total) by mouth every 7 days. Active WALKER MISC, DME,Indications:Ac [place] gout of right foot, unspecified cause 1 Device by Does not apply route as needed. 1 Device 024 2024 Active venlafaxine XR (EFFEXOR-XR) 150 MG 24 hr capsuleIndications :Current mild episode of major depressive disorder without prior episode Take 1 capsule by mouth once daily 90 capsule 024 Active gabapentin (NEURONTIN) 300 MG capsuleIndications :Chronic low back pain, unspecified back pain laterality, unspecified whether sciatica present TAKE 1 CAPSULE BY MOUTH THREE TIMES DAILY 270 capsule 024 Active warfarin (COUMADIN) 5 MG tabletIndications: [facility] (current) use of anticoagulants,H/O mechanical aortic valve replacement Take 1 tablet by mouth once daily 30 tablet 024 Active colchicine 0.6 MG tabletIndications: Acute gout of left foot, unspecified cause Day 1: 1.2 mg at the first sign of flare, followed by 0.6 mg after 1 hour. Day 2 and after: take 0.6 mg once daily until resolves 30 tablet 024 Active HYDROcodone-acetam inophen (NORCO) 5-325 MG tabletIndications: Chronic Pain Take 1-2 tablets by mouth every 6 (six) hours as needed for Pain. Indications: Chronic Pain 60 tablet 024 Active sotalol (BETAPACE) 80 MG tablet Take 0.5 tablets (40 mg total) by mouth 2 (two) times daily. Active ALPRAZolam (XANAX) 0.5 MG tabletIndications: Anxiety TAKE 1/2 (ONE-HALF) TABLET BY MOUTH NIGHTLY NEEDED FOR SLEEP 30 tablet 025 Active furosemide (LASIX) 20 MG tabletIndications: Hypertensive heart disease with congestive heart failure ([facility] HHS/HCC) Take 1 tablet by mouth once daily 30 tablet 1 025 Active omeprazole (PRILOSEC) 40 MG capsuleIndications :GERD (gastroesophageal reflux disease) Take 1 capsule by mouth once daily 90 capsule 025 Active simvastatin (ZOCOR) 10 MG tabletIndications: Hyperlipidemia associated with type 2 diabetes mellitus ([facility]) TAKE 1 TABLET BY MOUTH NIGHTLY AT BEDTIME 90 tablet 025 Active simvastatin (ZOCOR) 10 MG tabletIndications: Hyperlipidemia associated with type 2 diabetes mellitus ([facility]) Take 1 tablet (10 mg total) by mouth nightly at bedtime. 90 tablet 3 023 2024 Discontinued omeprazole (PRILOSEC) 40 MG capsuleIndications :GERD (gastroesophageal reflux disease) Take 1 capsule by mouth once daily 90 capsule 024 2024 Discontinued furosemide (LASIX) 20 MG tabletIndications: Hypertensive heart disease with congestive heart failure ([facility]) Take 1 tablet by mouth once daily 30 tablet 024 2024 Discontinued ALPRAZolam (XANAX) 0.5 MG tabletIndications: Anxiety TAKE 1/2 (ONE-HALF) TABLET BY MOUTH NIGHTLY NEEDED FOR SLEEP 15 tablet 024 2024 Discontinued Misc. Devices (WALKER WHEELS) MiscIndications:Ot her chronic pain,Physical deconditioning 1 Device by Does not apply route once for 1 dose. 1 each 025 2024 Active Problems Problem Noted Date Diagnosed Date Hyperthyroidism 06/22/2023 Heart failure with mildly re duced ejection fraction (HFmrEF) ([facility]) 02/16/2023 OLIVE (acute kidney injury) 08/26/2022 Graves' disease 07/07/2022 Cirrhosis of liver without a scites, unspecified hepatic cirrhosis type ([facility]) 07/07/2022 Stage 3b chronic kidney disease 07/07/2022 Encounter for prophylactic measures, unspecified 05/20/2022 Paroxysmal atrial fibrillation ([facility]) 12/01/2021 Hypertension associated with type 2 diabetes mellitus ([facility]) 12/01/2021 Chronic heart failure with p reserved ejection fraction (HFpEF) ([facility]) 11/25/2021 Physical deconditioning 11/06/2021 Care Management 07/29/2021 Age-related osteoporosis with current pathologic al fracture 07/16/2021 Anxiety 05/21/2021 Metacarpal bone fracture 05/21/2021 Mitral valve disorder 05/21/2021 Vision loss 05/21/2021 COPD (chronic obstructive pu lmonary disease) ([facility]) 05/21/2021 Drug-induced constipation 05/21/2021 Hematoma 12/13/2020 Hyperlipidemia associated wi th type 2 diabetes mellitus ([facility]) 11/25/2020 Chest pain 11/22/2020 Contusion of scalp 11/22/2020 Knee pain 11/22/2020 Localized, primary osteoarthritis 11/22/2020 Osteoarthritis of knee 11/22/2020 Traumatic closed displaced fracture of distal en d of radius 11/22/2020 Shoulder joint pain 11/22/2020 Closed stable burst fracture of sixth thoracic vertebra, initial encounter ([facility]) 09/13/2020 Disorder of skin of trunk 09/07/2020 Cobalamin deficiency 09/07/2020 Dysphagia 09/07/2020 Syncope, unspecified syncope type 09/07/2020 Wrist joint pain 09/07/2020 Requires lifelong warfarin therapy 09/07/2020 Hyperparathyroidism ([facility]) 09/07/2020 Plantar fascial fibromatosis 09/07/2020 Osteoporosis 09/07/2020 Numbness 09/07/2020 Muscle cramps 09/07/2020 Anemia 08/14/2020 Overview (09/07/2020): Last Assessment & Plan: Continue ferrous sulfate 325 mg daily 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[facility]) 08/14/2020 Overview (09/07/2020): Last Assessment & Plan: [...] Vitamin D deficiency 11/21/2019 Benign hypertension with stage 3b chronic kidney disease 07/13/2019 Vascular dementia 07/13/2019 Diarrhea 07/13/2019 Abnormal stress test 05/06/2019 Coronary artery disease invo lving [place] coronary artery of [place] heart without angina pectoris 05/06/2019 Body mass index (BMI) 31.0-31.9, adult 0 Presence of prosthetic heart valve 02/23/2019 LBBB (left bundle branch block) 12/08/2018 Myopathy 02/17/2018 Diastolic heart failure ([facility]) 2017 Paroxysmal atrial flutter ([facility]) 06/08/2017 Compression fracture of thoracic vertebra ([facility]) 06/30/2017 Chronic anticoagulation 03/20/2017 H/O mechanical aortic valve replacement 03/20/19 18 Peripheral arterial occlusive disease 12/25/2016 Leukoencephalopathy 11/03/2016 Diverticular disease 10/12/2016 Internal hemorrhoids 10/12/2016 Diabetic polyneuropathy ([facility]) 2016 Parathyroid adenoma 09/17/2016 Disorder of rotator cuff 09/02/2016 Gastroesophageal reflux disease without esophagi tis 09/02/2016 Polymyalgia rheumatica ([facility]) 09/02/2016 Major depression single episode, in partial pollo ssion 09/02/2016 Primary osteoarthritis involving multiple joints 09/02/2016 H/O mechanical aortic valve replacement 09/03/19 17 Unknown and unspecified causes of morbidity 05/2016 Overview (09/07/2020): Morbid obesity with BMI of 40.0-44.9, adult Hypertensive heart disease w ith congestive heart failure ([facility]) 07/16/2015 Overview (11/21/2019): Diastolic heart failure secondary to hypertension VAZQUEZ (obstructive sleep apnea) 07/16/2015 Overview (11/21/2019): VAZQUEZ on CPAP Benign hypertension with CKD (chronic kidney disease) stage III 08/15/2014 Overview (11/22/2020): Near syncope Blood pressure [...] 09/13/2020 09/17/2020 Chronic obstructive lung dis ease ([facility]) 09/07/2020 06/20/2021 Atrial fibrillation with rap id ventricular response ([facility]) 08/22/2020 07/07/2022 Senile purpura 07/13/2019 01/12/2023 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 toxic ity with intermediate teacher use 05/06/2019 02/03/2020 Prosthetic aortic valve stenosis 03/20/2017 02/03/2020 Kidney stone 02/03/2017 07/07/2022 Dizziness 08/15/2014 02/03/2020 Overview (11/21/2019): Dizziness History of anticoagulant therapy 08/15/2014 02/03/2020 Overview (11/21/2019): Chronic anticoagulation Encounters Date Type Department Care Team Description 05/26/[address] [phone] Suleman Montez, Referral 05/26/2024 Patient Outreach [address] [phone] Dianne Johnson, RN Care Management 05/20/2024 Orders Only [address] [address] Suleman Montez DO 05/19/2024 Patient Outreach [address] [phone] Bebe Dan, DRILL RIG OPERATOR Care Management 05/18/[address] [address] Suleman Montez DO Prior Authorization 05/18/2024 Patient Outreach [address] [address] Dianne Johnson, RN Care Management 05/17/[address] [address] Suleman Montez, DO Other 05/10/2024 Scan [facility] SRVCS Scanned, [facility] 05/10/2024 Orders Only [phone] [place] [address] Suleman Montez, DO 05/10/2024 Telephone [facility] Internal [facility] [address] [place] [address] Suleman Montez, DO Other 05/10/2024 Telephone [place] [address] [place] [address] Suleman Montez, DO Prior Authorization (Alprazolam 0.5mg tablets) 05/10/2024 Patient Outreach [place] [address] [place] [address] Dianne Johnson RN Care Management 05/06/2024 Scan [facility] SRVCS Scanned, [facility] 05/06/2024 Telephone [place] [place] [address] Suleman Mnotez, DO Information 05/06/2024 Telephone [address] [place] [address] Suleman Montez, DO Information 05/04/2024 Scan [facility] SRVCS Scanned, [facility] Lab (SCAN) 05/04/2024 Telephone [phone] [place] [address] Suleman Montez, DO Information 05/04/2024 Patient Outreach [facility] Internal [facility] [address] [place] [address] Silvina Dial RN Care Management; ER F/U (Ed visit 05/03/24) 05/04/2024 Telephone [facility] Internal [address] [address] Suleman Montez, DO Question 05/03/2024 10:40 AM DIRECTOR DRUG SAFETY Office Visit [address] [phone] Suleman Montez, DO TCM (The patient presents for TCM. The patient states she was admitted at [facility] for A-fib. The patient was transferred to [place] for a swing bed due to covid and pneumonia.) 05/03/2024 Scan [employer] INFO SRVCS Scanned, [facility] Lab (SCAN); Image (SCAN) 05/03/2024 Travel 04/28/[address] [address] Suleman Montez, DO Lab Results 04/27/[address] [address] Suleman Montez, DO Information 04/26/2024 Scan [facility] SRVCS Scanned, [facility] 04/26/[address] [address] Suleman Montez, DO Information 04/26/2024 Telephone [facility] Internal [address] [address] Suleman Montez, DO Other 04/25/2024 1:40 PM DIRECTOR DRUG SAFETY Allied Health/Nurse Visit [address] [address] Suleman Montez, DO Anticoagulation 04/25/2024 Scan [facility] SRVCS Scanned, [facility] 04/25/2024 Travel 04/25/2024 Patient Outreach [facility] Family & Internal Medicine [facility] [address] [place] [address] Silvina Dial, RN TCM ([facility] [place] 03/09/24-04/08, [place] swing bed 04/08-04/22) 04/22/2024 Scan [facility] SRVCS Scanned, Doc [facility] 04/22/2024 Telephone [facility] Family & Internal Medicine [place] [address] [place] [address] Suleman Montez, DO Information 04/18/2024 Patient Outreach [facility] Family & Internal [address] [address] Dianne Johnson RN Hospital Follow Up (Currently at [facility] ) 04/12/2024 Telephone [facility] Multispecialty Care - [facility] [address], [address] [place] [phone] Julio Pulido MD Appointment Request 04/09/2024 Scan [facility] SRVCS Scanned, [facility] 04/08/2024 Scan [facility] SRVCS Scanned, Doc [facility] 04/08/2024 Patient Outreach [facility] Family & Internal Medicine [address] [phone] L[facility] Medication (Trulicity - successful 2024) 04/08/2024 Patient Outreach [facility] Family & Internal Medicine [place] [address] [place] [address] Court Robles RN Hospital Follow Up (Outreach calls) 04/01/2024 Scan [facility] SRVCS Scanned, [facility] Image (SCAN) 03/31/2024 Scan [facility] SRVCS Scanned, [facility] Procedure (SCAN) 03/29/2024 Scan [facility] SRVCS Scanned, [facility] Image (SCAN); CT (SCAN) 03/28/2024 Patient Outreach [facility] Family & Internal Medicine [facility] [phone] [place] [phone] Dianne Johnson, RN Hospital Follow Up (Currently at [facility] ) 03/26/2024 Scan [facility] INFO SRVCS [...] Doc Med [facility] Image (SCAN) 03/17/2024 Telephone [facility] Family & Internal Medicine [address] [address] Suleman Montez, DO Information 03/16/2024 Patient Outreach [facility] Family Internal [address] [phone] [address] Robles, DALE Hospital Follow Up (Call to [facility] .) 03/14/2024 Patient Outreach [facility] Family Internal [address] [address] Dianne Johnson RN Hospital Follow Up (Admission notification to [facility] on 03/09/25.) 03/11/2024 Scan [facility] INFO [...] Group Lab (SCAN); Image (SCAN) 03/07/[address] [address] Suleman Montez, DO Other 03/03/[address] [address] Suleman Montez, DO Results 02/29/2024 1:40 PM DIRECTOR DRUG SAFETY Office Visit [address] [address] Suleman Montez, DO Gout (The patient presents for a 2 month follow up.); Diabetes (Follow up. No concerns. ) 02/29/[address] [address] Suleman Montez, DO Lab Order 02/29/2024 Patient Outreach [address] [address] Dianne Johnson RN Care Management 02/29/2024 Travel from Last 3 Months Immunizations Name Administration [...] Tdap (Generic) 09/05/2020,06/05/2016 Tetanus/Diptheria 07/22/2014 Zoster (Zostavax) 81495 Unt/0.65Ml 12/25/2015 Family History Medical History Relation [...] week 08/26/2022 How often do you attend [facility] or restorationism services? More than 4 times [...] Date Recorded Patient Health Questionnaire-2 Score 0 05/03/2024 [facility] - Occupational Stress Questionnaire Answer Date [...] Sex Assigned at Female 05/03/2024 10:53 AM DIRECTOR DRUG SAFETY Legal Sex Female 11:18 AM CDT Gender Identity Female 05/03/2024 10:53 AM DIRECTOR DRUG SAFETY Sexual Orientation Not on file Last Filed Vital Signs Vital Sign Reading Time Taken Comments Blood Pressure 112/74 05/03/2024 10:57 AM DIRECTOR DRUG SAFETY Pulse 130 05/03/2024 10:57 AM DIRECTOR DRUG SAFETY Temperature 36.5 C (97.7 F) 05/03/2024 10:57 AM DIRECTOR DRUG SAFETY Respiratory Rate 16 05/03/2024 10:57 AM DIRECTOR DRUG SAFETY Oxygen Saturation 98% 05/03/2024 10:57 AM DIRECTOR DRUG SAFETY Inhaled Oxygen Concentration - - Weight 74.9 kg (165 lb 1.6 oz) 05/03/2024 10:57 AM DIRECTOR DRUG SAFETY Height 165.1 cm (5' 5 ) 05/03/2024 10:57 AM DIRECTOR DRUG SAFETY Body Mass Index 27.47 05/03/2024 10:57 AM DIRECTOR DRUG SAFETY Plan of Treatment Upcoming Encounters Date Type Department Care Team (Late st Contact Info) Description 05/30/2024 3:40 PM CDT Office Visit [facility] Family & Internal Medicine - [place] [address] [place] [phone] Suleman Montez, [address] [place] [address] Health Maintenance Due Date Last Done Comments [...] 06/05/2016, Additional history exists COVID-19 Vaccine ( - season) 2112 08/29/2021, 02/23/2021, 06/01/2020, Additional history exists Postponed from 11/08/2023 (Going to Outside Clinic) Pneumococcal Vaccine: 65+ Years Completed 03/30/2017, 06/15/2015 Dexa Scan (General) Completed 11/24/2023, 02/24/2023, 02/24/2023, Additional history exists Influenza Adult Completed 12/08/2023, 11/0 08/2022, 12/23/2021, Additional history exists PHQ-2 (Physician Bartelso) Completed 05/03/2024 Meningococcal B Vaccine Aged Out No l [...] ADLs independently General On track(2024 9:15 AM DIRECTOR DRUG SAFETY) No Dianne Johnson, RN Note: 12/17/23: Patient [...] General On track(2024 10:14 AM CDT) Dianne Corona RN Note: Patient will recognize [...] CDT) Dianne Corona RN Note: Patient will monitor B/P several times per week , record readings and report to physician or CC if B/P consistently >130/80 Take your medications as prescribed. Follow up with your provider as scheduled. Take your blood pressure at least several times a week if able. Establish Plan for Symptom Monitoring-paroxy smal atrial fib Lifestyle On track(2024 10:15 AM CDT) Dianne Corona RN Note: Atrial Fib: Patient will recognize symptoms of atrial fibrillation and report to physician should they occur. Establish regular follow ups with Repeat Photocomposing Machine Operator, take medications exactly as directed without skipping doses. Procedures Procedure Name Priority Date/Time Associated Diagnosis Comments OUTSIDE LAB (SCAN ORDER) 05/04/2024 ELECTROCARDIOGRAM (NON MIDMARK ACQUIRED) Routine 05/03/2024 11:34 AM DIRECTOR DRUG SAFETY Paroxysmal atrial flutter ([facility]/HCC HHS/HCC) EVENT RECORDER (ECG) UP TO 30 DAYS REVIEW/INTERP Routine 05/03/2024 10:40 AM DIRECTOR DRUG SAFETY Paroxysmal atrial flutter ([facility]/HCC HHS/HCC) COLLECT.CAPILLARY (FNGR,HEEL,EAR) Routine 05/03/2024 10:39 AM DIRECTOR DRUG SAFETY Chronic anticoagulation OUTSIDE LAB (SCAN ORDER) 05/03/2024 OUTSIDE PT/INR (SCAN ORDER) 05/03/2024 OUTSIDE LAB (SCAN ORDER) 05/03/2024 PROTHROMBIN TIME, FINGERSTICK Routine 05/03/2024 Chronic anticoagulation IMAGE GENERIC 05/03/2024 COLLECT.CAPILLARY (FNGR,HEEL,EAR) Routine 04/25/2024 1:41 PM DIRECTOR DRUG SAFETY Chronic anticoagulation PROTHROMBIN TIME, FINGERSTICK Routine 04/25/2024 Chronic anticoagulation IMAGE GENERIC 04/01/2024 PROCEDURE GENERIC (SCAN ORDER) 03/31/2024 CT GENERIC 03/29/2024 IMAGE GENERIC 03/29/2024 IMAGE GENERIC 03/26/2024 CT GENERIC 03/24/2024 IMAGE GENERIC 03/23/2024 STRESS TEST (SCAN ORDER) 03/22/2024 STRESS TEST (SCAN ORDER) 03/22/2024 CT GENERIC 03/21/2024 IMAGE GENERIC 03/20/2024 IMAGE GENERIC 03/18/2024 ECHO GENERIC (SCAN ORDER) 03/11/2024 IMAGE GENERIC 03/10/2024 IMAGE GENERIC 03/08/2024 OUTSIDE LAB (SCAN ORDER) 03/07/2024 OUTSIDE PT/INR (SCAN ORDER) 03/07/2024 IMAGE GENERIC 03/07/2024 COLLECT.CAPILLARY (FNGR,HEEL,EAR) Routine 02/29/2024 1:44 PM DIRECTOR DRUG SAFETY Type 2 diabetes mellitus with stage 3b chronic kidney disease, without long-term current use of insulin ([facility]) HEMOGLOBIN, GLYCOSYLATED Routine 02/29/2024 Type 2 diabetes mellitus with stage 3b chronic kidney disease, without long-term current use of insulin ([facility]) BONE DENSITY GENERIC (SCAN ORDER) 11/24/2023 LIPID PANEL Routine 08/14/2023 12:00 PM CDT Type 2 diabetes mellitus with stage 3b chronic kidney disease, without long-term current use of insulin Heart failure with mid-range ejection fraction (HFmEF) Chronic anticoagulation Paroxysmal atrial fibrillation Hyperparathyroidism Hyperthyroidism DIABETIC RETINOPATHY EXAM (NEGATIVE)(SCAN ORDER) Routine 04/21/2022 from Last 3 Months or Most Recently Relevant to Health Maintenance Results * OUTSIDE LAB (SCAN ORDER) (05/04/2024) Only the most recent of4 resultswithin the time period is included. 05/04/2024 us [facility] Scanned SCANNING Final Resu lt * EKG WELCHALLEN ACQUIRED (05/03/2024 11:34 AM DIRECTOR DRUG SAFETY) 05/03/2024 11:3 4 AM DIRECTOR DRUG SAFETY Narrative [facility] RAD - 05/04/2024 9:41 AM DIRECTOR DRUG SAFETY [facility] [address] [place] [address] Test Date: 2024-05-03 Pat Name: ANA MARIA BOBO Department: 171 Room: Gender: Female Executive Steward: : 1945 Requested By: SULEMAN MONTEZ Order Number: [id number] Reading MD: Suleman Montez Measurements Intervals [place] Rate: 132 P: -65 IN: 120 QRS: -27 QRSD: 132 T: 126 QT: 318 QTc: 472 Interpretive Statements Atrial Fibrillation with RVR LEFT BUNDLE BRANCH BLOCK CTOR DRUG SAFETY Procedure Note Suleman Montez DO - 05/04/2024 [facility] [address] [place] [address] Test Date: 2024-05-03 Pat Name: ANA MARIA BOBO Department: 171 Room: Gender: Female Executive Steward: : 1945 Requested By: SULEMAN MONTEZ Order Number: [id number] Reading MD: Suleman Montez Measurements Intervals [place] Rate: 132 P: -65 IN: 120 QRS: -27 QRSD: 132 T: 126 QT: 318 QTc: 472 Interpretive Statements Atrial Fibrillation with RVR LEFT BUNDLE BRANCH BLOCK CTOR DRUG SAFETY us Suleman Montez DO PROCEDURES-ORDERABLE NO CHARGE Final Result [facility] * ECG Review/Interpret Only (05/03/2024 10:40 AM DIRECTOR DRUG SAFETY) Suleman Bergman DO - 05/03/2024 10:40 AM DIRECTOR DRUG SAFETY Suleman Montez DO 05/04/2024 9:57 AM ECG Review/Interpret Only Date/Time: 05/03/2024 10:40 AM Performed by: Suleman Montez DO Authorized by: Suleman Montez DO Comparison: compared with previous ECG from 08/25/2023 Comparison to previous ECG: A Fib now with RVR, LBBB previously noted Rhythm: atrial fibrillation Rate: tachycardic Conduction: complete LBBB ST Segments: ST segments normal T Waves: T waves normal Clinical impression: abnormal ECG us Suleman Montez DO ECG ORDERABLES Final Re sult * PROTIME/INR, FINGERSTICK (05/03/2024) Only the most recent of2 resultswithin the time period is included. INR WHOLE BLOOD 2.00 [facility] 05/03/2024 Suleman Montez DO LABORATORY Final Re sult [facility] [address] [place] [address], [place] * OUTSIDE PT/INR (SCAN ORDER) (05/03/2024) Only the most recent of2 resultswithin the time period is included. 05/03/2024 [facility] Scanned SCANNING Final Resu lt * IMAGE GENERIC (05/03/2024) Only the most recent of10 resultswithin the time period is included. Anatomical Region Laterality Modality Other 05/03/2024 [employer] [facility] Scanned SCANNING Final Resu lt * PROCEDURE GENERIC (SCAN ORDER) (03/31/2024) 03/31/2024 [employer] [facility] Scanned SCANNING Final Resu lt * CT GENERIC (03/29/2024) Only the most recent of3 resultswithin the time period is included. Anatomical Region Laterality Modality Other 03/29/2024 Result [facility] [employer] [facility] Scanned SCANNING Final Resu lt * STRESS TEST (SCAN ORDER) (03/22/2024) Only the most recent of2 resultswithin the time period is included. 03/22/2024 [facility] Scanned SCANNING Final Resu lt * ECHO GENERIC (SCAN ORDER) (03/11/2024) Anatomical Region Laterality Modality Other 03/11/2024 [facility] Scanned SCANNING Final Resu lt * HEMOGLOBIN, GLYCOSYLATED (02/29/2024) HGB A1C 5.5 % [facility] 02/29/2024 Suleman Montez DO LABORATORY Final Re sult [facility] [address] [place] [address], [place] * BONE DENSITY GENERIC (SCAN ORDER) (11/24/2023) Anatomical Region Laterality Modality Other 11/24/2023 [employer] [facility] Scanned SCANNING Final Resu lt * (ABNORMAL) LIPID PANEL (08/14/2023 12:00 PM CDT) CHOLESTEROL 201(H) <200 MG/DL 08/14/2023 7:44 PM CDT [facility] TRIGLYCERIDES 97 <150 MG/DL 08/14/2023 7:44 PM CDT [facility] HDL 66 >40 MG/DL 08/14/2023 7:44 PM CDT [facility] LDL-C 116(H) <100 MG/DL 08/14/2023 7:44 PM CDT [facility] VLDL CALCULATION 19 5 - 28 MG/DL 08/14/2023 7:44 PM CDT [facility] CHOL/HDL RATIO 3.0 0.0 - 4.0 08/14/2023 7:44 PM CDT [facility] LDL/HDL 1.8 0.41 - 2.13 08/14/2023 7:44 PM CDT [facility] NON HDL CHOLESTEROL 135 <140 MG/DL 08/14/2023 7:44 PM CDT [facility] 08/14/2023 12:0 0 PM CDT Suleman Montez DO LABORATORY Final Re sult Performing Organization Address City/[facility]/ZIP Co de Phone Number [facility] [address] [place] [address], * DIABETIC RETINOPATHY EXAM (NEGATIVE)(SCAN) (04/21/2022) [facility] Scanned SCANNING Final Resu lt Performing Organization Address City/[facility] Co de Phone Number [facility] ONBASE from Last 3 Months or Most [...] 4:17 PM 10/21/2021 4:52 PM Care Teams Quantity Surveyor Relationship Specialty Start Date End Date Suleman Montez DO [address] [place] [id number] PCP - General FAMILY PRACTICE 09/25/20 Dianne Johnson, RN [address] [place] [address] Certified Pedorthotist (Ambulatory) REGISTERED NURSE 08/14/20
--- OUTSIDE RECORDS SUMMARY | 2024-05-28 21:49 | XMS_ITS | CONTINUITY OF CARE DOCUMENT ---
Author Name gaetano salter Address Unknown Organization [facility] Address [id number] [place] [address] [address] [place] [address] Phone [phone] Care Team Providers Care Methods Time Analyst Name Role Phone Wendy Dey MD Unavailable [phone] Wendy Dey MD Unavailable [phone] INSURANCE PROVIDERS Payer name Policy type / Coverage type [place] [employer] party ID [employer] Other [id number]
--- OUTSIDE RECORDS SUMMARY | 2024-05-28 21:49 | XMS_ITS | Continuity of Care Document ---
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 Name Role Phone Kiersten Pugh NP Unavailable [...] INC PLATELETS AND DIFFERENTIAL COMPREHEN METABOLIC PANEL [facility] 0 BRAIN NATRIURETIC PEPTIDE (BNP) 020 PROTHROMBIN TIME W/INR (PROTIME,PT) ROUTINE VENIPUNCTURE OFFICE [id number] BODY MASS INDEX DOCD SYST BP LT 130 MM HG DIAST BP < 80 MM HG CBC, INC PLATELETS AND DIFFERENTIAL COMPREHEN METABOLIC PANEL CMP 0 FERRITIN LEVEL IRON (FE), TOTAL TIBC, & % SATURATION PROTHROMBIN TIME W/INR (PROTIME,PT) ROUTINE VENIPUNCTURE OFFICE [id number] BODY MASS INDEX DOCD SYST BP LT 130 MM HG DIAST BP < 80 MM HG Pt inelig neg scrn depres CBC, INC PLATELETS AND DIFFERENTIAL COMPREHEN METABOLIC PANEL CMP 0 FERRITIN LEVEL PROTHROMBIN TIME W/INR (PROTIME,PT) ROUTINE VENIPUNCTURE MICROALBUMIN, QN (URINE) CREATININE, (U-R) OFFICE [id number] BODY MASS INDEX DOCD SYST BP GE [...] screen annual Clin depression screen doc OFFICE [id number]-[id number] PROTIME (PT) - OFFICE LAB ONLY 20 [...] STICK-COLLECTION OF CAPIL MIRIAM BLOOD SPECIMEN OFFICE [id number] BODY MASS INDEX DOCD SYST BP >= 140 MM HG6 IT DIAST BP < 80 MM HG Pt inelig neg scrn depres CBC, INC PLATELETS AND DIFFERENTIAL COMPREHEN METABOLIC PANEL CMP 0 HEMOGLOBIN A1C HGA1C, GLYCO PROTHROMBIN TIME W/INR (PROTIME,PT) VITAMIN B12 (SERUM) ROUTINE VENIPUNCTURE OFFICE [id number]-[id number] BODY MASS INDEX DOCD SYST BP LT [...] MED MERGE DSCHRG MED/CURRENT MED MERGE OFFICE [id number] BODY MASS INDEX DOCD SYST BP LT [...] (SERUM) VITAMIN D, 25-HYDROXY ROUTINE VENIPUNCTURE OFFICE [id number]-[id number]-[id number] BODY MASS INDEX DOCD SYST BP LT 130 MM HG DIAST BP < 80 MM HG PROTIME (PT) - OFFICE LAB ONLY 19 FINGER OR HEEL STICK-COLLECTION OF CAPIL MIRIAM BLOOD SPECIMEN OFFICE VZIWT-BLD-[id number] BODY MASS INDEX DOCD SYST BP LT 130 MM HG DIAST BP < 80 MM HG PROTIME (PT) - OFFICE LAB ONLY 19 FINGER OR HEEL STICK-COLLECTION OF CAPIL MIRIAM BLOOD SPECIMEN OFFICE [id number]-[id number]-[id number] BODY MASS INDEX DOCD SYST BP LT 130 MM HG DIAST BP < 80 MM HG PROTIME (PT) - OFFICE LAB ONLY 19 FINGER OR HEEL STICK-COLLECTION OF CAPIL MIRIAM BLOOD SPECIMEN Advance Directives Directive Yes / No Effective Date File Name No Information Encounters Encounter Description Practice Location Reason(s) For Visit Diagnoses Date Provider Providers Copied on Encounter [facility], [address], [place], [place], [address] , tel: [phone] [facility] Internal Medicine No Information 1 Keaton Burch. [facility] [place], [address], [place]. [phone] [facility], [address], [place], [place], [address] , tel: [phone] [facility] Internal Medicine No Information 0 1 Christi Hayes. [address] [place], [place], [address], [place]. [phone] OFFICE NSNGL-UCI-RDL ULIS [facility], [address], [place], [place], [address] , tel:[phone] [facility] Internal Medicine Chronic Conditions (chief complaint) [...] onic obstructive airway disease 0 Keaton Burch. [address] [place] [address], [address], . tel:[phone] Referring Provider: Natalee Mcghee, [address] [place] [address], [address] . tel:[phone] [facility], [address], [place], [place], [address] , tel:[phone] [facility] Internal Medicine No Information 0 Yara Albright. [address] [place] [address], [id number], . tel:[phone] OFFICE IUEWA-ZPN-DDA [facility], [address], [place], [place], [address] , tel:[phone] [facility] Internal Medicine Chronic Conditions (chief complaint) [...] peripheral angiopathy without gangrene 0 Kena Dawson. [address] [place] [address], [id number], . tel:[phone] Referring Provider: Natalee Mcghee, [address] [place] [address], [address] . tel:[phone] [facility], [address], [place], [place], [address] , tel: [phone] [facility] Internal Medicine Unspecified atrial flutterEssenti al (primary) hypertension Payam-2 0 Yara Albright. [address] [place] [address], [id number], [place]. tel:[phone] [facility], [address], [place], [place], [address] , tel: [phone] Care Management No Information Payam-0 0 Yara Albright. [address] [place] [address], [id number], . tel:[phone] OFFICE VVEUV-MIA-HFN [facility], [address], [place], [place], [address] , [place] tel: [phone] [facility] Internal Medicine Chronic Conditions (chief complaint) [...] angiopathy without gangrene Payam-0 0 Yara Albright. [address] [place] [address], [id number], [place]. tel:[phone] Referring Provider: Natalee Mcghee, [address] [place] [address], [address] . tel:[phone] OFFICE CCJEG-RDE-RMD [facility], [address], [place], [place], [address] , [place] tel: [phone] [facility] Internal Medicine Chronic Conditions (chief complaint) [...] yosteoarthriti s, unspecified July-0 0 Yara Albright. [address] [place] [address], [id number], . tel:[phone] Referring Provider: Natalee Mcghee, [address] [place] [address], [address] . tel:[phone] [facility], [address], [place], [place], [address] , tel: [phone] [facility] Presence of prosthetic heart valveMild cognitive impairmentLong term (current) use of anticoagulants Jun- 0 Gallo Pitts. [address] [facility], [address], [place], [address], [place]. tel:[phone] Referring Provider: Hong Holder, [address] [facility] [address], [place], [address] . tel:[phone] [facility], [address], [place], [place], [address] , tel: [phone] [facility] Hypertensive heart disease with heart failure Jun-2 0 Gallo Pitts. [address] [facility], [address], [place], [address], [place]. [phone] [facility], [address], [place], [place], [address] , tel: [phone] [facility] Presence of prosthetic heart valveLong term (current) use of anticoagulants Apr-2 2-202 0 Gallo Pitts. [address], [address], [place], [address], . tel:[phone] Referring Provider: Hong Holder, [address], [address] . tel:[phone] [facility], [address], [place], [place], [address] , tel: [phone] [facility] No Information 0 Gallo Pitts. [address], [address], [place], [address], . tel:[phone] [facility], [address], [place], [place], [address] , tel: [phone] [facility] Presence of prosthetic heart valveLong term (current) use of anticoagulants 0 Gallo Pitts. [address], [address], [place], [address], [place]. [phone] Referring Provider: Hong Holder, [address], [address] . tel:[phone] [facility] [address], [place], [place], [address] , tel: [phone] [facility] Presence of prosthetic heart valveLong term (current) use of anticoagulants 0 Gallo Pitts. [address], [place], [address], [place]. tel:[phone] Referring Provider: Hong Holder, [address], [address] . tel:[phone] [facility], [address], [place], [place], [address] , tel: [phone] [facility] Nurse Visit (chief complaint) Presence of prosthetic heart valveLong term (current) use of anticoagulants 0 Gallo Pitts. [address], [address], [place], [place], [address], [place]. tel:[phone] Referring Provider: Hong Holder, [address], [place], [address] . tel:[phone] OFFICE ETVXR-DXF-UJV ANDED [facility], [address], [place], [place], [address] , tel: [phone] [facility] Sick (chief complaint)C hronic Conditions (chief complaint) Respiratory illnessEssenti al (primary) hypertension 0 0 Gallo Pitts. [address] [employer] , [address], [place], [place], [address], [place]. tel:[phone] Referring Provider: Hong Holder, [address], [place], [address] . tel:[phone] [facility], [address], [place], [place], [address] , tel: [phone] [facility] DizzinessNumbn essSyncope, unspecified syncope type 0 Gallo Pitts. [address] [employer] , [address], [place], [place], [address], [place]. tel:[phone] OFFICE BFWJH-ZXH-LDM LUIS [facility], [address], [place], [place], [address] , tel: [phone] [facility] 3 month (chief complaint)C hronic Conditions (chief complaint) Body mass index (BMI) 31.0-31.9, adultPre-synco peChronic obstructive airway diseasePrimary hyperparathyro idismHypertens julien heart disease with heart failureArterio sclerosis of [place] arteries of extremityType 2 diabetes mellitus with diabetic polyneuropathy Vitamin B12 deficiencyChro kaushik diastolic (congestive) heart failureAtheros clerosis of aortaMajor depressive disorder, single episode, in partial remissionParox ysmal atrial fibrillation 0 Gallo Pitts. [address] [employer] , [address], [place], [place], [address], [place]. tel:[phone] Referring Provider: Hong Holder, [address], [address] . tel:[phone] [facility] [address], [place], [place], [address] , tel: [phone] [facility] Presence of prosthetic heart valveLong term (current) use of anticoagulants 0 Gallo Pitts. [address] , [address], [place], [address], . tel:[phone] Referring Provider: Hong Holder, [address], [address] . tel:[phone] [facility] [address], [place], [place], [address] , tel: [phone] [facility] Presence of prosthetic heart valveLong term (current) use of anticoagulants Gallo Pitts. [address] , [address], [place], [address], [place]. tel:[phone] Referring Provider: Hong Holder, [address], [address] . tel:[phone] [facility] [address], [place], [address] , tel: [phone] Care Management Atrial fibrillation, unspecified type Gallo Pitts. [address] , [address], [place], [address], [place]. tel:[phone] Transitional Care- First 7 Days Of Discharge [facility] [address], [place], [place], [address] , tel: [phone] [facility] Hospital F/U (chief complaint) Body mass index (BMI) 32.0-32.9, adultAcute frontal sinusitis, recurrence not specifiedAtria l fibrillation, unspecified typeH/O prosthetic heart valve Gallo Pitts. [address] , [address], [place], [address], [place]. tel:[phone] Referring Provider: Hong Holder, [address], [address] . tel:[phone] [facility] [address], [place], [place], [address] , tel: [phone] Care Management No Information Gallo Pitts. [address], [place], [address], [place]. [phone] Referring Provider: Hong Holder, [address], [address] . tel:[phone] [facility], [address], [place], [place], [address] , tel: [phone] Care Management Chronic obstructive airway disease Dec- Gallo Pitts. [address], [address], [place], [address], [place]. [phone] Referring Provider: Hong Holder, [address], [address] . tel:[phone] OFFICE MCTDE-QMR-CEK LUIS [facility], [address], [place], [place], [address] , tel: [phone] [facility] Hospital Follow Up (chief complaint) Obstructive sleep apnea (adult) (pediatric)Mem ory lossAddumasce care planningCerebr al atherosclerosi sMild cognitive impairment Dec- 9 Gallo Pitts. [address], [place], [address], [place]. [phone] Referring Provider: Hong Holder, [address], [address] . tel:[phone] [employer] [facility], [address], [place], [place], [address] , tel: [phone] [facility] Presence of prosthetic heart valveLong term (current) use of anticoagulants Gallo Pitts. [address] , [address], [place], [place], [address], [place]. tel:[phone] Referring Provider: Hong Holder, [address], [place], [address] . tel:[phone] [facility], [address], [place], [place], [address] , tel: [phone] Care Management Presence of prosthetic heart valveLong term (current) use of anticoagulants Gallo Pitts. [address] , [address], [place], [address], [place]. tel:[phone] Referring Provider: Hong Holder, [address], [address] . tel:[phone] OFFICE GKSQL-EHH-BMH LUIS [facility], [address], [place], [place], [address] , tel: [phone] [facility] 3 month follow up (chief complaint)C hronic Conditions (chief complaint) Benign neoplasm of parathyroid glandVitamin B12 deficiencyIron deficiency anemia, unspecifiedAcu te pain of left shoulder Gallo Pitts. [address], [address], [place], [place], [address], [place]. tel:[phone] Referring Provider: Hong Holder, [address], [address] . tel:[phone] [facility], [address], [place], [place], [address] , [place] tel: [phone] [facility] Presence of prosthetic heart valveLong term (current) use of anticoagulants Gallo Pitts. [address] , [address], [place], [place], [address], [place]. tel:[phone] Referring Provider: Hong Holder, [address], [address] . tel:[phone] [facility], [address], [place], [place], [address] , [place] tel: [phone] [facility] Chest pain, unspecified Gallo Pitts. [address] , [address], [place], [place], [address], [place]. tel:[phone] OFFICE HNRTK-RHM-TWX [facility], [address], [place], [place], [address] , [place] tel: [phone] Care Management SOB , DSOUZA and Weight Gain (chief complaint)C hronic Conditions (chief complaint) Body mass index (BMI) 31.0-31.9, adultNonintrac table headache, unspecified chronicity pattern, unspecified headache typeFinger swellingChroni c obstructive airway disease Gallo Pitts. [address] , [address], [place], [place], [address], [place]. tel:[phone] Referring Provider: Hong Holder, [address], [place], [address] . tel:[phone] OFFICE LEDHG-DUH-ODN [facility], [address], [place], [place], [address] , [place] tel: [phone] [facility] pain (chief complaint) Primary hyperparathyro idismBody mass index (BMI) 32.0-32.9, adultTrochante tessa bursitis of right hipRotator cuff arthropathy of left shoulder Gallo Pitts. [address] , [address], [place], [place], [address], [place]. tel:[phone] Referring Provider: Hong Holder, [address] [employer] [address], [place], [address] . tel:[phone] [facility], [address], [place], [place], [address] , tel: [phone] [facility] Presence of prosthetic heart valveLong term (current) use of anticoagulants Gallo Pitts. [address] , [address], [place], [place], [address], . tel:[phone] Referring Provider: Hong Holder, [address] [facility] [address], [place], [address] . tel:[phone] [facility], [address], [place], [place], [address] , tel: [phone] [facility] Chronic Conditions (chief complaint)h eadache (chief complaint)r t thumb frx (chief complaint) Paroxysmal atrial fibrillationCh ronic diastolic (congestive) heart failureHyperte nsive heart disease with heart failureHyperli pidemia, unspecifiedArt eriosclerosis of [place] arteries of extremityMajor depressive disorder, single episode, in partial remissionGastr o-esophageal reflux disease without esophagitisTyp e 2 diabetes mellitus with diabetic polyneuropathy Atherosclerosi s of aortaBody mass index (BMI) 32.0-32.9, adultDysphagia , unspecifiedTen niko headacheOther nonthrombocyto penic purpuraClosed nondisplaced fracture of distal phalanx of right thumb with routine healing, subsequent encounter Gallo Pitts. [address] [facility], [address], [place], [place], [address], . tel:[phone] Referring Provider: Hong Holder, [address] [facility] [address], [place], [address] . tel:[phone] [facility], [address], [place], [place], [address] , tel: [phone] [facility] Presence of prosthetic heart valveLong term (current) use of anticoagulants Gallo Pitts. [address] [facility], [address], [place], [address], [place]. tel:[phone] Referring Provider: Hong Holder, [address] [facility] [address], [place], [address] . tel:[phone] [facility], [address], [place], [place], [address] , tel: [phone] [facility] Sprain of right thumb, unspecified site of finger, initial encounterPrese nce of prosthetic heart valveLong term (current) use of anticoagulants Gallo Pitts. [address] , [address], [place], [place], [address], . tel:[phone] Referring Provider: Hong Holder, [address], [place], [address] . tel:[phone] [facility], [address], [place], [place], [address] , [place] tel: [phone] [facility] Encounter for exam of blood pressure w/o abnormal findingsPresen ce of prosthetic heart valveLong term (current) use of anticoagulants Gallo Pitts. [address] , [address], [place], [place], [address], [place]. tel:[phone] Referring Provider: Hong Holder, [address], [place], [address] . tel:[phone] [employer] [facility], [address], [place], [place], [address] , [place] tel: [phone] [facility] Chronic obstructive airway disease Gallo Pitts. [address] , [address], [place], [address], [place]. tel:[phone] Referring Provider: Hong Holder, [address], [place], [address] . tel:[phone] [employer], [address], [place], [place], [address] , [place] tel: [phone] [facility] Lung diseaseHyperte nsive heart disease with heart failureDysphag ia, unspecifiedRig ht foot pain 9 Gallo Pitts. [address], [place], [address], [place]. tel:[phone] Referring Provider: Hong Holder, [address], [place], [address] . tel:[phone] [employer], [address], [place], [place], [address] , tel: [phone] [facility] Abnormal PFT 9 Gallo Pitts. [address] [facility], [address], [place], [place], [address], [place]. tel:[phone] [employer], [address], [place], [place], [address] , tel: [phone] [facility] Presence of prosthetic heart valveLong term (current) use of anticoagulants Gallo Pitts. [address] [facility], [address], [place], [place], [address], [place]. tel:[phone] Referring Provider: Hong Holder, [address] [facility] [address], [place], [address] . tel:[phone] [employer], [address], [place], [place], [address] , tel: [phone] [facility] Paroxysmal atrial fibrillationAg e-related osteoporosis without current pathological fractureMorbid (severe) obesity due to excess caloriesChroni c diastolic (congestive) heart failureHyperte nsive heart disease with heart failureHyperli pidemia, unspecifiedTyp e 2 diabetes mellitus with diabetic peripheral angiopathy without gangreneMajor depressive disorder, single episode, in partial remissionArter iosclerosis of [place] arteries of extremityGastr o-esophageal reflux disease without esophagitisTyp e 2 diabetes mellitus with diabetic polyneuropathy Atherosclerosi s of aortaPresence of prosthetic heart valve Gallo Pitts. [address] [facility], [address], [place], [place], [address], . tel:[phone] [employer], [address], [place], [place], [address] , tel: [phone] [facility] SOB (shortness of breath) on exertion Gallo Pitts. [address] , [address], [place], [place], [address], [place]. tel:[phone] [facility], [address], [place], [place], [address] , tel: [phone] [facility] Presence of prosthetic heart valveLong term (current) use of anticoagulants 9 Gallo Pitts. [address] , [address], [place], [place], [address], [place]. tel:[phone] Referring Provider: Hong Holder, [address] [facility] [address], [place], [address] . tel:[phone] [facility], [address], [place], [place], [address] , tel: [phone] [facility] Acute pain of left shoulder 9 Gallo Pitts. [address] , [address], [place], [address], [place]. tel:[phone] [facility], [address], [place], [place], [address] , [place] tel: [phone] [facility] Acute pain of left shoulderFall, subsequent encounterCoccy dynia 9 Gallo Pitts. [address] , [address], [place], [place], [address], [place]. tel:[phone] Referring Provider: Hong Holder, [address] [facility] [address], [address] . tel:[phone] [facility], [address], [place], [place], [address] , [place] tel: [phone] [facility] Obstructive sleep apneaShortness of breath 8 Gallo Pitts. [address] , [address], [place], [address], [place]. tel:[phone] Referring Provider: Hong Holder, [address] [facility] [address], [address] . tel:[phone] [facility], [address], [place], [place], [address] , tel: [phone] [facility] Presence of prosthetic heart valveLong term (current) use of anticoagulants 8 Gallo Pitts. [address] [employer], [address], [place], [address], [place]. tel:[phone] Referring Provider: Hong Holder, [address] [facility] [address], [address] . tel:[phone] [facility], [address], [place], [place], [address] , tel: [phone] [facility] Paroxysmal atrial fibrillationAg e-related osteoporosis without current pathological fractureBenign neoplasm of parathyroid gland Gallo Pitts. [address] [employer] , [address], [place], [address], . tel:[phone] Referring Provider: Hong Holder, [address] [facility] [address], [place], [address] . tel:[phone] [facility], [address], [place], [place], [address] , tel: [phone] [facility] Presence of prosthetic heart valveLong term (current) use of anticoagulants Gallo Pitts. [address] [facility], [address], [place], [address], [place]. tel:[phone] Referring Provider: Hong Holder, [address] [employer] [address], [address] . tel:[phone] [facility], [address], [place], [place], [address] , tel: [phone] [facility] Anemia, unspecifiedPre sence of prosthetic heart valveLong term (current) use of anticoagulants Diverticulitis 8 Gallo Pitts. [address] [facility] [address], [address], [place], [address], [place]. tel:[phone] Referring Provider: Hong Holder, [address], [place], [address] . tel:[phone] [facility], [address], [place], [place], [address] , [place] tel: [phone] [facility] Lower abdominal painDiarrhea, unspecified type 8 Gallo Pitts. [address], [address], [place], [place], [address], [place]. tel:[phone] [facility], [address], [place], [place], [address] , [place] tel: [phone] [facility] Anemia, unspecifiedDiv erticulitis 8 Gallo Pitts. [address], [address], [place], [address], [place]. tel:[phone] [facility], [address], [place], [place], [address] , [place] tel: [phone] [facility] Diverticulitis 8 Gallo Pitts. [address] [facility] [address], [address], [place], [place], [address], [place]. tel:[phone] Referring Provider: Hong Holder, [address] [facility] [address], [place], [address] . tel:[phone] [facility], [address], [place], [place], [address] , [place] tel: [phone] [facility] Wedge compression fracture of unsp thor vertebra, sequelaDiverti culitis 8 Gallo Pitts. [address] [facility] [address], [address], [place], [place], [address], [place]. tel:[phone] Referring Provider: Hong Holder, [address] [facility] [address], [place], [address] . tel:[phone] [facility], [address], [place], [place], [address] , [place] tel: [phone] [facility] Chronic diastolic (congestive) heart failureUnspeci fied atrial flutterMorbid (severe) obesity due to excess caloriesWedge compression fracture of unsp thor vertebra, sequela Gallo Pitts. [address] , [address], [place], [address], [place]. tel:[phone] Referring Provider: Hong Holder, [address] [facility] [address], [place], [address] . tel:[phone] [facility], [address], [place], [place], [address] , [place] tel: [phone] [facility] Presence of prosthetic heart valveLong term (current) use of anticoagulants Gallo Pitts. [address] , [address], [place], [address], [place]. tel:[phone] Referring Provider: Hong Holder, [address] [facility] [address], [address] . tel:[phone] [facility], [address], [place], [place], [address] , [place] tel: [phone] [facility] Vitamin B12 deficiencyPres ence of prosthetic heart valveLong term (current) use of anticoagulants Gallo Pitts. [address] , [address], [place], [address], [place]. tel:[phone] Referring Provider: Hong Holder, [address] [facility] [address], [address] . tel:[phone] [facility], [address], [place], [place], [address] , [place] tel: [phone] [facility] No Information Gallo Pitts. [address] , [address], [place], [address], [place]. tel:[phone] [facility], [address], [place], [place], [address] , [place] tel: [phone] [facility] Vitamin B12 deficiency Aug-0 Gallo Pitts. [address], [address], [place], [address], . tel:[phone] Referring Provider: Hong Holder, [address], [place], [address] . tel:[phone] [facility], [address], [place], [place], [address] , tel: [phone] [facility] Presence of prosthetic heart valveLong term (current) use of anticoagulants Anemia, unspecified July- Gallo Pitts. [address], [address], [place], [address], . tel:[phone] Referring Provider: Hong Holder, [address], [address] . tel:[phone] [facility], [address], [place], [place], [address] , tel: [phone] [facility] Hypertensive heart disease with heart failureAnemia, unspecified Gallo Pitts. [address], [address], [place], [address], [place]. tel:[phone] Referring Provider: Hong Holder, [address], [address] . tel:[phone] [facility], [address], [place], [place], [address] , tel: [phone] [facility] Presence of prosthetic heart valveLong term (current) use of anticoagulants Gallo Pitts. [address], [address], [address], [place]. tel:[phone] Referring Provider: Hong Holder, [address], [place], [address] . tel:[phone] [facility], [address], [place], [place], [address] , tel: [phone] [facility] Presence of prosthetic heart valveLong term (current) use of anticoagulants 8 Gallo Pitts. [address] [facility], [address], [place], [place], [address], [place]. tel:[phone] Referring Provider: Hong Holder, [address] [facility] [address], [place], [address] . tel:[phone] [facility], [address], [place], [place], [address] , tel: [phone] [facility] Lumbar spondylosisSho rtness of breath 8 Gallo Pitts. [address] [employer] , [address], [place], [place], [address], [place]. [phone] Referring Provider: Hong Holder, [address] [employer] [address], [place], [address] . tel:[phone] [facility], [address], [place], [place], [address] , [place] tel: [phone] [facility] Major depressive disorder, single episode, in partial remissionPrima ry hyperparathyro idismGastro-es ophageal reflux disease without esophagitisCer ebral atherosclerosi sHyperlipidemi a, unspecifiedArt eriosclerosis of [place] arteries of extremityType 2 diabetes mellitus with diabetic peripheral angiopathy without gangreneScreen ing for osteoporosisPa roxysmal atrial fibrillationLo ng term (current) use of anticoagulants Presence of prosthetic heart valvePost-halima pausal 0 8 Gallo Pitts. [address] [employer] [address], [address], [place], [place], [address], [place]. [phone] Referring Provider: Hong Holder, [address] [employer] [address], [place], [address] . tel:[phone] [facility], [address], [place], [place], [address] , tel: [phone] [facility] Presence of prosthetic heart valveLong term (current) use of anticoagulants Jun-2 8 Gallo Pitts. [address] [facility] [address], [address], [place], [address], . tel:[phone] Referring Provider: Hong Holder, [address] [facility] [address], [place], [address] . tel:[phone] [facility], [address], [place], [place], [address] , tel: [phone] [facility] Hypertensive heart disease with heart failure Jun-2 8 Gallo Pitts. [address] [facility] [address], [address], [place], [address], [place]. tel:[phone] Referring Provider: Hong Holder, [address] [facility] [address], [address] . 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 [address] [facility] [address], [address], [place], [address], [place]. tel:[phone] Referring Provider: Hong Holder, [address] [facility] [address], [address] . tel:[phone] [facility], [address], [place], [place], [address] , tel: [phone] [facility] Type 2 diabetes mellitus with diabetic polyneuropathy Body mass index (BMI) 40.0-44.9, adult Mar-0 2- 8 Micha Jaylyn. [address], [address]. tel:[phone] Referring Provider: Hong Holder, [address] [employer] [address], [address] . tel:[phone] [facility], [address], [place], [place], [address] , [place] tel: [phone] [facility] Encntr screen mammogram for malignant neoplasm of breast 8 Gallo Pitts. [address], [address], [place], [place], [address], [place]. tel:[phone] [facility], [address], [place], [place], [address] , tel: [phone] [facility] Low back pain 8 Gallo Pitts. [address], [address], [place], [place], [address], [place]. tel:[phone] [facility], [address], [place], [place], [address] , tel: [phone] [facility] Presence of prosthetic heart valveLong term (current) use of anticoagulants Gallo Pitts. [address] , [address], [place], [place], [address], [place]. tel:[phone] Referring Provider: Hong Holder, [address], [place], [address] . tel:[phone] [facility], [address], [place], [place], [address] , tel: [phone] [facility] FDC (current) use of anticoagulants Presence of prosthetic heart valve 8 Gallo Pitts. [address] , [address], [place], [place], [address], [place]. tel:[phone] Referring Provider: Hong Holder, [address] [facility] [address], [place], [address] . tel:[phone] [facility], [address], [place], [place], [address] , [place] tel: [phone] [facility] Osteoporosis, unspecified osteoporosis type, unspecified pathological fracture presence 8 Demetrius Schilling. [address], [address], [place], [address]. tel:[phone] [facility], [address], [place], [place], [address] , tel: [phone] [facility] Low back painAtheroscle rosis of aortaPolymyalg ia rheumaticaHear t failure, unspecifiedTyp e 2 diabetes mellitus with diabetic polyneuropathy Morbid (severe) obesity due to excess calories Gallo Pitts. [address] [employer] , [address], [place], [place], [address], [place]. tel:[phone] Referring Provider: Hong Holder, [address] [facility] [address], [place], [address] . tel:[phone] [facility], [address], [place], [place], [address] , tel: [phone] [facility] FDC (current) use of anticoagulants Presence of prosthetic heart valve Gallo Pitts. [address] [facility] [address], [address], [place], [place], [address], [place]. tel:[phone] Referring Provider: Hong Holder, [address] [facility] [address], [place], [address] . tel:[phone] [facility] [address], [place], [place], [address] , tel: [phone] [facility] Presence of prosthetic heart valveLong term (current) use of anticoagulants Gallo Pitts. [address] [facility] [address], [address], [place], [place], [address], [place]. tel:[phone] Referring Provider: Hong Holder, [address] [facility] [address], [address] . tel:[phone] [facility] [address], [place], [place], [address] , tel: [phone] [facility] Strain of lumbar region, subsequent encounter Gallo Pitts. [address] [facility] [employer] [address], [address], [place], [address], . tel:[phone] Referring Provider: Hong Holder, [address], [place], [address] . 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 [address], [address], [place], [address], [place]. tel:[phone] Referring Provider: Hong Holder, [address], [address] . 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 [address], [address], [place], [address], [place]. tel:[phone] Referring Provider: Hong Holder, [address], [address] . tel:[phone] [facility] [address], [place], [place], [address] , tel: [phone] [facility] Polymyalgia rheumaticaHear t failure, unspecifiedArt eriosclerosis of [place] arteries of extremityType 2 diabetes mellitus with diabetic peripheral angiopathy without gangreneAthero sclerosis of aortaMorbid (severe) obesity due to excess caloriesEncntr screen mammogram for malignant neoplasm of breastLong term (current) use of anticoagulants Presence of prosthetic heart valveHyperlipi demia, unspecifiedCer ebral atherosclerosi sGastro-esopha geal reflux disease without esophagitis Gallo Pitts. [address] [facility] [employer] [address], [address], [place], [address], [place]. tel:[phone] Referring Provider: Hong Holder [address], [address] . tel:[phone] [facility], [address], [place], [place], [address] , tel: [phone] [facility] Knee pain, unspecified chronicity, unspecified laterality 7 Gallo Pitts. [address], [address], [place], [address], [place]. tel:[phone] [facility], [address], [place], [place], [address] , [place] tel: [phone] [facility] FDC (current) use of anticoagulants Presence of prosthetic heart valve Gallo Pitts. [address], [address], [place], [address], [place]. tel:[phone] Referring Provider: Hong Holder, [address], [address] . tel:[phone] [facility], [address], [place], [place], [address] , [place] tel: [phone] [facility] Iron deficiency anemia, unspecified iron deficiency anemia type Gallo Pitts. [address], [address], [place], [address], [place]. 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 [address], [address], [place], [address], [place]. tel:[phone] Referring Provider: Hong Holder, [address], [address] . tel:[phone] [facility], [address], [place], [place], [address] , [place] tel: [phone] [facility] Iron deficiency anemia, unspecified iron deficiency anemia type Aug- Gallo Pitts. [address], [address], [place], [place], [address], [place]. tel:[phone] [facility], [address], [place], [place], [address] , tel: [phone] [facility] Anemia, unspecified Gallo Pitts. [address], [address], [place], [place], [address], [place]. tel:[phone] Referring Provider: Hong Holder, [address], [place], [address] . tel:[phone] [facility], [address], [place], [place], [address] , [place] tel: [phone] [facility] Presence of prosthetic heart valveLong term current use of anticoagulant therapyAnemia, unspecified Gallo Pitts. [address], [address], [place], [address], [place]. tel:[phone] [facility], [address], [place], [place], [address] , tel: [phone] [facility] Type 2 diabetes mellitus with polyneuropathy Demetrius Schilling. [address], [address], [place], [place], [address]. tel:[phone] [facility], [address], [place], [place], [address] , [place] tel: [phone] [facility] Shortness of breathPolymyal carmen rheumaticaPres ence of prosthetic heart valvePrimary hyperparathyro idismMajor depressive disorder, single episode, in partial remission Gallo Pitts. [address], [address], [place], [place], [address], [place]. tel:[phone] Referring Provider: Hong Holder, [address], [address] . tel:[phone] [facility], [address], [place], [place], [address] , tel: [phone] [facility] Dizziness and giddinessPolym yalgia rheumatica Gallo Pitts. [address], [address], [place], [address], . tel:[phone] Referring Provider: Hong Holder, [address], [place], [address] . tel:[phone] [facility], [address], [place], [place], [address] , tel: [phone] [facility] MyalgiaBilater al shoulder pain, unspecified chronicity Gallo Pitts. [address] , [address], [place], [address], . tel:[phone] Referring Provider: Hong Holder, [address], [address] . tel:[phone] [facility], [address], [place], [place], [address] , tel: [phone] [facility] H/O mechanical aortic valve replacementLon g term current use of anticoagulant therapy Gallo Pitts. [address] , [address], [place], [address], [place]. tel:[phone] Referring Provider: Hong Holder, [address], [address] . tel:[phone] [facility], [address], [place], [place], [address] , tel: [phone] [facility] H/O mechanical aortic valve replacementLon g term current use of anticoagulant therapy Gallo Pitts. [address], [address], [place], [address], [place]. tel:[phone] Referring Provider: Hong Holder, [address], [place], [address] . tel:[phone] [facility] [address], [place], [place], [address] , tel: [phone] [facility] Bilateral arm painBilateral shoulder pain, unspecified chronicity Jun-2 4-201 7 Gallo Pitts. [address], [address], [place], [address], [place]. [phone] Referring Provider: Hong Holder, [address], [address] . tel:[phone] [facility] [address], [place], [place], [address] , tel: [phone] [facility] Bilateral leg cramps Jun-2 0- 7 Gallo Pitts. [address], [place], [address], [place]. tel:[phone] Referring Provider: Hong Holder, [address], [address] . tel:[phone] [facility] [address], [place], [place], [address] , tel: [phone] [facility] H/O mechanical aortic valve replacementLon g term current use of anticoagulant therapy May-3 0-201 7 Gallo Pitts. [address], [address], [place], [address], [place]. [phone] Referring Provider: Hong Holder, [address], [address] . tel:[phone] [facility] [address], [place], [place], [address] , tel: [phone] [facility] H/O mechanical aortic valve replacementLon g term current use of anticoagulant therapy May-2 3-201 7 Gallo Pitts. [address], [place], [address], [place]. [phone] Referring Provider: Hong Holder, [address], [place], [address] . tel:[phone] [facility], [address], [place], [place], [address] , tel: [phone] [facility] H/O mechanical aortic valve replacementLon g term current use of anticoagulant therapy 7 Gallo Pitts. [address], [place], [place], [address], [place]. tel:[phone] Referring Provider: Hong Holder, [address], [place], [address] . tel:[phone] [facility], [address], [place], [place], [address] , [place] tel: [phone] [facility] Neck painH/O mechanical aortic valve replacement 7 Gallo Pitts. [address], [address], [place], [place], [address], [place]. tel:[phone] [facility], [address], [place], [place], [address] , [place] tel: [phone] [facility] Acute non-recurrent sinusitis, unspecified location 7 Gallo Pitts. [address], [address], [place], [place], [address], [place]. tel:[phone] Referring Provider: Hong Holder, [address], [place], [address] . tel:[phone] [facility], [address], [place], [place], [address] , [place] tel: [phone] [facility] H/O mechanical aortic valve replacementLon g term current use of anticoagulant therapy 0 7 Gallo Pitts. [address], [address], [place], [address], [place]. [phone] Referring Provider: Hong Holder, [address] [employer] [address], [place], [address] . tel:[phone] [facility], [address], [place], [place], [address] , tel: [phone] [facility] Type 2 diabetes mellitus with polyneuropathy Hammer toe of left footAcute bilateral low back pain without sciatica 7 Gallo Pitts. [address], [place], [place], [address], [place]. tel:[phone] Referring Provider: Hong Holder, [address] [employer] [address], [place], [address] . tel:[phone] [facility], [address], [place], [place], [address] , tel: [phone] [facility] Obstructive sleep apnea 0 6 Gallo Pitts. [address] [employer] [address], [address], [place], [place], [address], [place]. tel:[phone] [facility], [address], [place], [place], [address] , tel: [phone] [facility] Major depressive disorder, single episode, in partial remissionH/O mechanical aortic valve replacementTyp e 2 diabetes mellitus with polyneuropathy 6 Gallo Pitts. [address] [employer] [address], [address], [place], [place], [address], [place]. tel:[phone] Referring Provider: Hong Holder, [address] [employer] [address], [place], [address] . tel:[phone] [facility], [address], [place], [place], [address] , tel: [phone] [facility] Complicated griefDisappear ance and of family memberMajor depressive disorder, single episode, in partial remission 2-201 6 Gallo Pitts. [address] [employer] [address], [address], [place], [place], [address], [place]. tel:[phone] [facility], [address], [place], [place], [address] , [place] tel: [phone] [facility] No Information 6 Gallo Pitts. [address] [facility] [address], [address], [place], [place], [address], [place]. tel:[phone] Referring Provider: Maria T Ramon, [address], [place], [address] . tel:[phone] [facility], [address], [place], [place], [address] , [place] tel: [phone] [facility] Complicated griefDisappear ance and of family memberNeck pain 6 Gallo Pitts. [address] [employer] [address], [address], [place], [place], [address], [place]. tel:[phone] Referring Provider: Hong Holder, [address] [facility] [address], [place], [address] . tel:[phone] [facility], [address], [place], [place], [address] , [place] tel: [phone] [facility] Atherosclerosi s of aorta 6 Gallo Pitts. [address] [employer] [address], [address], [place], [place], [address], [place]. tel:[phone] Referring Provider: Hong Holder, [address] [employer] [address], [place], [address] . tel:[phone] [facility], [address], [place], [place], [address] , [place] tel: [phone] [facility] Tear of right rotator cuff, unspecified tear extent 6 Gallo Pitts. [address] [employer] [address], [address], [place], [place], [address], [place]. tel:[phone] [facility], [address], [place], [place], [address] , tel: [phone] [facility] Type 2 diabetes mellitus with polyneuropathy Chronic right shoulder pain 3 6 Gallo Pitts. [address] , [address], [place], [place], [address], . tel:[phone] Referring Provider: Hong Holder, [address], [place], [address] . tel:[phone] [facility], [address], [place], [place], [address] , tel: [phone] [facility] H/O mechanical aortic valve replacementLon g term current use of anticoagulant therapy 0 6 Gallo Pitts. [address], [address], [id number], . tel:[phone] Referring Provider: Hong Holder, [address], [address] . tel:[phone] [facility], [address], [place], [place], [address] , tel: [phone] [place] [facility] H/O mechanical aortic valve replacementLon g term current use of anticoagulant therapy 6 Gallo Pitts. [address] , [address], [place], [place], [address], . tel:[phone] Referring Provider: Hong Holder, [address], [place], [address] . tel:[phone] [facility], [address], [place], [place], [address] , tel: [phone] [place] [facility] Dyspnea on effort 6 Gallo Pitts. [address], [place], [address], . tel:[phone] [facility], [address], [place], [place], [address] , tel: [phone] [facility] H/O mechanical aortic valve replacementLon g term current use of anticoagulant therapy 3 6 Gallo Pitts. [address], [place], [place], [address], [place]. [phone] Referring Provider: Hong Holder, [address], [place], [address] . tel:[phone] [facility], [address], [place], [place], [address] , [place] tel: [phone] [facility] Neck painBilateral shoulder pain, unspecified chronicityPain in left shoulder 6 Gallo Pitts. [address], [place], [place], [address], [place]. tel:[phone] [facility], [address], [place], [place], [address] , [place] tel: [phone] [facility] H/O mechanical aortic valve replacementLon g term current use of anticoagulant therapy 6 Gallo Pitts. [address], [address], [place]. tel:[phone] Referring Provider: Hong Holder, [address], [place], [address] . tel:[phone] [facility], [address], [place], [place], [address] , [place] tel: [phone] [facility] H/O mechanical aortic valve replacementLon g term current use of anticoagulant therapy 6 Gallo Pitts. [address], [address], [place]. tel:[phone] Referring Provider: Hong Holder, [address], [address] . tel:[phone] [facility], [address], [place], [place], [address] , [place] tel: [phone] [facility] H/O mechanical aortic valve replacementLon g term current use of anticoagulant therapy 6 Gallo Pitts. [address], [place], [place], [address], [place]. tel:[phone] Referring Provider: Hong Holder, [address], [place], [address] . tel:[phone] [facility], [address], [place], [place], [address] , tel: [phone] [facility] Encounter for immunizationNe ck painH/O mechanical aortic valve replacementChr onic kidney disease, stage 1 6 Gallo Pitts. [address], [place], [place], [address], [place]. tel:[phone] Referring Provider: Hong Holder, [address], [place], [address] . tel:[phone] [facility] [address], [place], [place], [address] , [place] tel: [phone] [place] [facility] Chest pain, unspecified 6 Gallo Pitts. [address], [place], [place], [address], [place]. tel:[phone] [facility], [address], [place], [place], [address] , tel: [phone] [facility] H/O mechanical aortic valve replacementLon g term current use of anticoagulant therapy 6 Gallo Pitts. [address], [place], [place], [address], [place]. tel:[phone] [facility], [address], [place], [place], [address] , [place] tel: [phone] [facility] Chronic kidney disease, stage 1Type 2 diabetes mellitus with polyneuropathy Nonintractable headache, unspecified chronicity pattern, unspecified headache type 6 Gallo Pitts. [address], [place], [place], [address], [place]. [phone] Referring Provider: Hong Holder, [address], [place], [address] . tel:[phone] [facility], [address], [place], [place], [address] , tel: [phone] [facility] H/O mechanical aortic valve replacement 6 Gallo Pitts. [address], [place], [place], [address], [place]. tel:[phone] Referring Provider: Hong Holder, [address], [place], [address] . tel:[phone] [facility], [address], [place], [place], [address] , tel: [phone] [place] [facility] Morbid obesity, unspecified obesity typeType 2 diabetes mellitus with stage 1 chronic kidney diseaseChronic kidney disease, stage 1Type 2 diabetes mellitus with polyneuropathy H/O mechanical aortic valve replacementMaj or depressive disorder, single episode, in partial remissionGERD without esophagitisPri valentina osteoarthritis involving multiple joints 6 Gallo Pitts. [address], [address], [place]. tel:[phone] Referring Provider: Hong Holder, [address], [address] . tel:[phone] [facility], [address], [place], [place], [address] , tel: [phone] [place] [facility] Aortic valve replaced 6 Gallo Pitts. [address], [address], [place]. tel:[phone] Referring Provider: Hong Holder, [address], [place], [address] . tel:[phone] [facility], [address], [place], [place], [address] , tel: [phone] [facility] Aortic valve replaced 6 Gallo Pitts. [address], [place], [place], [address], [place]. [phone] Referring Provider: Hong Holder, [address], [place], [address] . tel:[phone] Family History Family Member Type Diagnosis Age [...] type Covered alliance party ID Authoriza tion(s) FileHold Document Management software HEALTHPLAN MB [id number] FileHold Document Management software HEALTHMagency Digital MB [id number] FileHold Document Management software HEALTHMagency Digital MB [id number] BizNet SoftwarePLAN MB [id number] BizNet SoftwarePLAN MB [id number] Hojoki MB [id number] Hojoki MB [id number] Hojoki MB [id number] Social History Type Description Quantity Date Captured [...] 09/08/2019 ordered Referral Referred To: Home Care [id number] Ordered: Referrals: Home Care. Location: [facility]. Evaluation/diagnostic/treatment - Level 3 ordered Referral Referred To: [address]
[facility] [address] [place], [id number] Ordered: MRI brain wo contrast ordered Referral Referred To: Service CPAP equipment Ordered: Referrals: Service CPAP equipment ordered Referral Referred To: Maurice Paredes [address] [facility] [address] [place], [place], [phone] Ordered: Referrals: Cardiology. Maurice Paredes. Evaluation/diagnostic/treatment - Level 3 ordered Referral Referred To: [facility] [address] [place], [phone] Ordered: Modified barium swallow ordered History Of [...] intake. Hospital F/U Patient was seen at [facility] due to irregular heartbeat Patient felt she [...] Follow Up Patient was t reated at [facility] for atrial fibrillation with RVR and was discharged on December. She saw a conference planning manager in the hospital. She is having progressive memory problems. This has come to the attention of her conference planning manager. She is managing her own affairs. She [...] follow up Here for a 3 [facility] follow up. Patient states her shoulders [...] patient also c/o pain in the right adventism. she denies jaw claudication. She has no [...] Colace to the pharmacy.Information was provided regarding aesv-wsk-ktoyeqc benefits through [employer] to help with coverage.Please call the office [...] will check your INR today Related to FDC (current) use of anticoagulants Medication managemen t has significantly improved.We are also happy to hear family is visiting quite often.Continue to use your pill turnaround planner and call the office with any [...] (congestive) heart failure we monitor this thro [facility] labs. 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 Make sure you are drinking plenty [...] vascular claudication symptoms. 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 Related to Atrial fibrillation, unspecified type I [...] sister would serve as your power of trademark attorney for nam care decisions. You NEED [...] with atorvastatin. 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 Related t [...]
--- OUTSIDE RECORDS SUMMARY | 2024-05-28 21:49 | XMS_ITS | Clinical Summary ---
Author Organization [facility] Address [address] [place] [address] Care Team Providers Care Hydroelectric Machinery Mechanic Name Role Phone Juan Pablo Dominguez MD Primary Care Provider Unavailabl e Source Comments [facility],non-owned Affiliates and Associated Physician Practices is amultiple site organization consisting of ambulatory clinics and hospital sitesin [place], [place], [place] and [place]. This disclosure is being madepursuant to the Care Everywhere program and may not contain all information available regarding this patient. Last updated 17.[facility] Allergies No known active allergies Medications * [...] 4:06 AM 08/11/2020 4:47 PM Care Teams Hydroelectric Machinery Mechanic Relationship Specialty Start Date End Date Juan Pablo Dominguez MD PCP - General Family Medicine 08/09/20
--- OUTSIDE RECORDS SUMMARY | 2024-05-28 21:49 | XMS_ITS | Encounter Summary ---
Author Organization [facility] Address [address] [facility] [address] [place] [address] Care Team Providers Care Chiropractic Doctor Name Role Phone Hong Holder MD Primary Care Provider [phone] Hong Holder MD Primary Care Provider [phone] Juan Pablo Dominguez MD Primary Care Provider Miscellaneous, Not In File Primary Care Provider Unavailable Sanjeev Webster DO Primary Care Provide r Encounter Details Date Type Department Care Team (Late st Contact Info) Description 05/28/2016 Orders Only [facility] ProviderCasi MD [address] [place] [address] Social History Tobacco Use Types Packs/Day Years Used Date Smoking Tobacco: Never Alcohol Use Standard Drinks/Week Comments No 0 (1 standard drink = 0.6 oz pur e alcohol) Comments Unknown Sex and Gender Information Value Date Recorded Sex Assigned at Not on file Legal Sex Female 6:10 AM GUMMED TAPE PRESS OPERATOR Gender Identity Not on file Sexual [...] on filedocumented in this encounter Care Teams Chiropractic Doctor Relationship Specialty Start Date End Date Hong Holder MD [address] [address] PCP - General 06/06/16 01/11/20 Hong Holder MD [address] [address] PCP - General 01/15/15 06/05/16 Juan Pablo Dominguez MD [address] [address] PCP - General Family Medicine 01/12/20 08/06/20 Miscellaneous, Not In File PCP - General 08/07/20 2 Sanjeev Webster DO [address] [place] [address] PCP - General Family Medicine 03/11/21 documented as of this encounter
--- OUTSIDE RECORDS SUMMARY | 2024-05-28 21:49 | XMS_ITS | Encounter Summary ---
Author Organization [facility] Address [facility] [place] [address] Care Team Providers Care Blueprint Developer Name Role Phone Dianne Johnson RN Unavailable [phone] Sanjeev Wbester DO Primary Care Provider + Encounter Details Date Type Department Care Team (Late st Contact Info) Description 07/16/[address] [facility] Diabetes and Endocrin[place] [id number] [facility] [place] [address] [place] [address] [place] [address] Social History Tobacco Use Types Packs/Day Years [...] Sex Assigned at Female 05/03/2024 10:53 AM BENCH PATTERNMAKER METAL Legal Sex Female 11:18 AM CDT Gender Identity Female 05/03/2024 10:53 AM BENCH PATTERNMAKER METAL Sexual Orientation Not on file COVID-19 Exposure [...] Description 05/30/2024 3:40 PM CDT Office Visit [facility] Family & Internal Medicine - [place] [address] [place] [address] Sanjeev Webster, [address] [place] [address] documented as of this encounter Goals Goal Patient Goal Type Associated Problems Recent Progress Patient-Stated? Author Health - patient able to perform ADLs independently General On track(2024 9:15 AM BENCH PATTERNMAKER METAL) Dianne Corona RN Note: 12/17/23: Patient stated [...] Rule Out 01/13/2022 01/13/2022 01/13/2022 12:48 PM BENCH PATTERNMAKER METAL COVID-19 Rule Out 01/13/2022 01/13/2022 01/14/2022 12:15 AM BENCH PATTERNMAKER METAL COVID-19 Rule Out 03/18/2022 03/18/2022 03/18/2022 12:27 PM BENCH PATTERNMAKER METAL COVID-19 Rule Out 03/18/2022 03/18/2022 03/18/2022 12:57 PM BENCH PATTERNMAKER METAL COVID-19 Rule Out 03/18/2022 03/18/202203/19/2022 1:58 PM BENCH PATTERNMAKER METAL COVID-19 Rule Out 08/26/2022 08/26/2022 08/26/2022 4:56 PM CDT COVID-19 Rule Out 01/08/2024 01/08/2024 01/08/2024 1:05 PM CDT Assessment Noted Time PHQ-9 Depression Total Score: 0 05/25/19 9:23 AM CDT documented as of this encounter Care Teams Blueprint Developer Relationship Specialty Start Date End Date Sanjeev Webster DO [address] [place] [address] PCP - General FAMILY PRACTICE 09/25/20 Dianne Jonhson, RN [address] [place] [address] Onyx Chip Terrazzo Worker (Ambulatory) REGISTERED NURSE 08/14/20 documented as of this encounter
[2024-05-28 21:50] LABS: Basophils Absolute Auto 0.1 K/mm3 (0.0-0.1); Basophils Percent Auto 0.9 % (0.2-1.2); Eosinophils Absolute Auto 0.2 K/mm3 (0-0.3); Eosinophils Percent Auto 3.8 % (0-4.4); Hematocrit 35.6 % (37.0-47.0); Hemoglobin 11.4 g/dL (12.0-15.0); Immature Granulocyte Absolute 0.01 K/mm3 (0.00-0.031); Immature Granulocyte Percent A 0.2 % (0-0.5); Lymphocytes Absolute Auto 1.52 K/mm3 (0.9-3.2); Lymphocytes Percent Auto 27.2 % (18.3-44.2); Mean Corpuscular Hemoglobin 33.1 pg (26-34); Mean Corpuscular Volume 103.5 fl (80-100); Mean Platelet Volume 12.2 fl (7.4-10.4); Monocytes Absolute Auto 0.5 K/mm3 (0.1-0.6); Monocytes Percent Auto 8.9 % (2.6-8.5); Neutrophils Absolute Auto 3.3 K/mm3 (1.3-6.7); Platelet Count Result 218 k/mm3 (150-375); Red Blood Count 3.44 M/mm3 (4.2-5.4); Red Cell Distribution Width 13.2 % (11.5-14.5); White Blood Count 5.6 K/mm3 (4.5-10.0)
--- OUTSIDE RECORDS SUMMARY | 2024-05-28 21:50 | XMS_ITS | Clinical Summary ---
Author Organization [facility] Address [address] [place] [address] Care Team Providers Care Dye Colorist Dyer Name Role Phone Dianne Johnson RN Unavailable [phone] Suleman Montez DO Primary Care Provider + [...] :Chronic obstructive pulmonary disease, unspecified COPD type ([facility]) INHALE 2 PUFFS BY MOUTH EVERY 6 HOURS NEEDED FOR WHEEZING 18 g 5 023 Active Blood Glucose Monitoring Suppl (ONE TOUCH ULTRA 2) w/Device KitIndications:Typ e 2 diabetes mellitus with stage 3b chronic kidney disease, without long-term current use of insulin ([facility]) 1 Device by Does not apply route daily. 1 kit 023 Active Lancets (ONETOUCH ULTRASOFT) lancetsIndications :Type 2 diabetes mellitus with stage 3b chronic kidney disease, without long-term current use of insulin ([facility]) 1 each by Other route as needed. Use as instructed 100 each 3 023 Active Glucose Blood (BLOOD GLUCOSE TEST STRIPS) StripIndications:T ype 2 diabetes mellitus with stage 3b chronic kidney disease, without long-term current use of insulin ([facility]) 1 Device by Does not apply [...] every 7 days. Active WALKER MISC, DME,Indications:[place] gout of right foot, unspecified cause 1 [...] 024 Active warfarin (COUMADIN) 5 MG tabletIndications: residential (current) use of anticoagulants,H/O mechanical aortic valve [...] heart disease with congestive heart failure ([facility] HHS/HCC) Take 1 tablet by mouth once daily 30 tablet 1 025 Active omeprazole (PRILOSEC) 40 MG capsuleIndications :GERD (gastroesophageal reflux disease) Take 1 capsule by mouth once daily 90 capsule 025 Active simvastatin (ZOCOR) 10 MG tabletIndications: Hyperlipidemia associated with type 2 diabetes mellitus ([facility]) TAKE 1 TABLET BY MOUTH NIGHTLY AT BEDTIME 90 tablet 025 Active simvastatin (ZOCOR) 10 MG tabletIndications: Hyperlipidemia associated with type 2 diabetes mellitus ([facility]) Take 1 tablet (10 mg total) by mouth nightly at bedtime. 90 tablet 3 023 2024 Discontinued omeprazole (PRILOSEC) 40 MG capsuleIndications :GERD (gastroesophageal reflux disease) Take 1 capsule by mouth once daily 90 capsule 024 2024 Discontinued furosemide (LASIX) 20 MG tabletIndications: Hypertensive heart disease with congestive heart failure ([facility]) Take 1 tablet by mouth once daily [...] with mildly re duced ejection fraction (HFmrEF) ([facility]) 02/16/2023 OLIVE (acute kidney injury) 08/26/2022 Graves' disease 07/07/2022 Cirrhosis of liver without a scites, unspecified hepatic cirrhosis type ([facility]) 07/07/2022 Stage 3b chronic kidney disease 07/07/2022 Encounter for prophylactic measures, unspecified 05/20/2022 Paroxysmal atrial fibrillation ([facility]) 12/01/2021 Hypertension associated with type 2 diabetes mellitus ([facility]) 12/01/2021 Chronic heart failure with p reserved ejection fraction (HFpEF) ([facility]) 11/25/2021 Physical deconditioning 11/06/2021 Care Management 07/29/2021 Age-related osteoporosis with current pathologic al fracture 07/16/2021 Anxiety 05/21/2021 Metacarpal bone fracture 05/21/2021 Mitral valve disorder 05/21/2021 Vision loss 05/21/2021 COPD (chronic obstructive pu lmonary disease) ([facility]) 05/21/2021 Drug-induced constipation 05/21/2021 Hematoma 12/13/2020 Hyperlipidemia associated wi th type 2 diabetes mellitus ([facility]) 11/25/2020 Chest pain 11/22/2020 Contusion of scalp 11/22/2020 Knee pain 11/22/2020 Localized, primary osteoarthritis 11/22/2020 Osteoarthritis of knee 11/22/2020 Traumatic closed displaced fracture of distal en d of radius 11/22/2020 Shoulder joint pain 11/22/2020 Closed stable burst fracture of sixth thoracic vertebra, initial encounter ([facility]) 09/13/2020 Disorder of skin of trunk 09/07/2020 Cobalamin deficiency 09/07/2020 Dysphagia 09/07/2020 Syncope, unspecified syncope type 09/07/2020 Wrist joint pain 09/07/2020 Requires lifelong warfarin therapy 09/07/2020 Hyperparathyroidism ([facility]) 09/07/2020 Plantar fascial fibromatosis 09/07/2020 Osteoporosis 09/07/2020 Numbness 09/07/2020 Muscle cramps 09/07/2020 Anemia 08/14/2020 Overview (09/07/2020): Last Assessment & Plan: Continue ferrous sulfate 325 mg daily 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) 2017 Paroxysmal atrial flutter ([facility]) 06/08/2017 Compression fracture of thoracic vertebra ([facility]) 06/30/2017 Chronic anticoagulation 03/20/2017 H/O mechanical aortic valve replacement 03/20/19 18 Peripheral arterial occlusive disease 12/25/2016 Leukoencephalopathy 11/03/2016 Diverticular disease 10/12/2016 Internal hemorrhoids 10/12/2016 Diabetic polyneuropathy ([facility]) 2016 Parathyroid adenoma 09/17/2016 Disorder of rotator cuff 09/02/2016 Gastroesophageal reflux disease without esophagi tis 09/02/2016 Polymyalgia rheumatica ([facility]) 09/02/2016 Major depression single episode, in partial pollo ssion 09/02/2016 Primary osteoarthritis involving multiple joints 09/02/2016 H/O mechanical aortic valve replacement 09/03/19 17 Unknown and unspecified causes of morbidity 05/2016 Overview (09/07/2020): Morbid obesity with BMI of 40.0-44.9, adult Hypertensive heart disease w ith congestive heart failure ([facility]) 07/16/2015 Overview (11/21/2019): Diastolic heart failure secondary [...] 09/13/2020 09/17/2020 Chronic obstructive lung dis ease ([facility]) 09/07/2020 06/20/2021 Atrial fibrillation with rap id ventricular response ([facility]) 08/22/2020 07/07/2022 Senile purpura 07/13/2019 01/12/2023 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 toxic ity with termite control servicer use 05/06/2019 02/03/2020 Prosthetic aortic valve stenosis 03/20/2017 02/03/2020 Kidney stone 02/03/2017 07/07/2022 Dizziness 08/15/2014 02/03/2020 Overview (11/21/2019): Dizziness History of anticoagulant therapy 08/15/2014 02/03/2020 Overview (11/21/2019): Chronic anticoagulation Encounters Date Type Department Care Team Description 05/26/[address] [address] Suleman Montez, Referral 05/26/2024 Patient Outreach [address] [phone] Dianne Johnson, RN Care Management 05/20/2024 Orders Only [address] [address] Suleman Montez DO 05/19/2024 Patient Outreach [address] [phone] Bebe Dan, PURCHASER Care Management 05/18/[address] [address] Suleman Montez DO Prior Authorization 05/18/2024 Patient Outreach [address] [address] Dianne Johnson, RN Care Management 05/17/[address] [address] Suleman Montez, DO Other 05/10/2024 Scan [facility] Scanned, [facility] 05/10/2024 Orders Only [phone] [place] [address] Suleman Montez, DO 05/10/2024 Telephone [facility] Internal [facility] [address] [place] [address] Suleman Montez, DO Other 05/10/2024 Telephone [address] [place] [place] [address] Suleman Montez, DO Prior Authorization (Alprazolam 0.5mg tablets) 05/10/2024 Patient Outreach [place] [address] [place] [address] Dianne Johnson RN Care Management 05/06/2024 Scan [facility] Scanned, [facility] 05/06/2024 Telephone [place] [place] [address] Suleman Montez, DO Information 05/06/2024 Telephone [address] [place] [address] Suleman Montez, DO Information 05/04/2024 Scan [facility] Scanned, [facility] Lab (SCAN) 05/04/2024 Telephone [address] [place] [address] Suleman Montez, DO Information 05/04/2024 Patient Outreach [facility] Internal [facility] [address] [place] [address] Silvina Dial RN Care Management; ER F/U (Ed visit 05/03/24) 05/04/2024 Telephone [facility] Internal [address] [address] Suleman Montez, DO Question 05/03/2024 10:40 AM TURNSTILE COLLECTOR Office Visit [address] [phone] Suleman Montez, DO TCM (The patient presents for TCM. The patient states she was admitted at [facility] for A-fib. The patient was transferred to [facility] for a swing bed due to covid and pneumonia.) 05/03/[address] INFO SRVCS Scanned, [facility] Lab (SCAN); Image (SCAN) 05/03/2024 Travel 04/28/[address] [address] Suleman Montez, DO Lab Results 04/27/[address] [address] Suleman Montez, DO Information 04/26/2024 Scan [facility] Scanned, [facility] 04/26/[address] [address] Suleman Montez, DO Information 04/26/2024 Telephone [facility] Internal [address] [address] Suleman Montez, DO Other 04/25/2024 1:40 PM TURNSTILE COLLECTOR Allied Health/Nurse Visit [address] [address] Suleman Montez, DO Anticoagulation 04/25/2024 Scan [facility] Scanned, [facility] 04/25/2024 Travel 04/25/2024 Patient Outreach [facility] Internal Medicine [facility] [address] [place] [address] Silvina Dial, RN TCM ([facility] Santos 03/09/24-04/08, [place] [facility] swing bed 04/08-04/22) 04/22/2024 Scan [facility]VCS Scanned, [facility] 04/22/2024 Telephone [facility] Internal Medicine [place] [address] [place] [address] Suleman Montez, DO Information 04/18/2024 Patient Outreach [facility] Family & Internal [address] [address] Dianne Johnson RN Hospital Follow Up (Currently at [facility] ) 04/12/2024 Telephone [facility] Multispecialty Care - [facility] [address], [address] [place] [phone] Julio Pulido MD Appointment Request 04/09/2024 Scan [facility] Scanned, [facility] 04/08/2024 Scan [facility] Scanned, [facility] 04/08/2024 Patient Outreach [facility] Family [facility] Internal Medicine [address] [phone] Lola [facility] Medication (Trulicity - successful 2024) 04/08/2024 Patient Outreach [facility] Medicine [place] [address] [place] [address] Court Robles RN Hospital Follow Up (Outreach calls) 04/01/2024 Scan [facility] Scanned, [facility] Image (SCAN) 03/31/2024 Scan [facility] Scanned, [facility] Procedure (SCAN) 03/29/2024 Scan [facility] Scanned, [facility] Image (SCAN); CT (SCAN) 03/28/2024 Patient Outreach [facility] Family & Internal Medicine [facility] [phone] [place] [phone] Dianne Johnson, RN Hospital Follow Up (Currently at [facility] ) 03/26/2024 Scan [facility] INFO [...] [facility] Image (SCAN) 03/17/2024 Telephone [facility] Family & Internal Medicine [address] [address] Suleman Montez, DO Information 03/16/2024 Patient Outreach [facility] Family Internal [address] [address] [address] Robles, ADLE Hospital Follow Up (Call to [facility] .) 03/14/2024 Patient Outreach [facility] Family Internal [address] [address] Dianne Johnson RN Hospital Follow Up (Admission notification to [facility] on 03/09/25.) 03/11/2024 Scan [facility] [...] Group Lab (SCAN); Image (SCAN) 03/07/[address] [address] Suleman Montez, DO Other 03/03/[address] [address] Suleman Montez, DO Results 02/29/2024 1:40 PM TURNSTILE COLLECTOR Office Visit [address] [address] Suleman Montez, DO Gout (The patient presents for a 2 month follow up.); Diabetes (Follow up. No concerns. ) 02/29/[address] [address] Suleman Montez, DO Lab Order 02/29/2024 Patient Outreach [address] [address] Dianne Johnson RN Care Management [...] Tdap (Generic) 09/05/2020,06/05/2016 Tetanus/Diptheria 07/22/2014 Zoster (Zostavax) 10689 Unt/0.65Ml 12/25/2015 Family History Medical History Relation [...] week 08/26/2022 How often do you attend [facility] or jainism services? More than 4 times [...] Recorded Patient Health Questionnaire-2 Score 0 05/03/2024 [facility] - Occupational Stress Questionnaire Answer Date [...] Sex Assigned at Female 05/03/2024 10:53 AM TURNSTILE COLLECTOR Legal Sex Female 11:18 AM CDT Gender Identity Female 05/03/2024 10:53 AM TURNSTILE COLLECTOR Sexual Orientation Not on file Last Filed Vital Signs Vital Sign Reading Time Taken Comments Blood Pressure 112/74 05/03/2024 10:57 AM TURNSTILE COLLECTOR Pulse 130 05/03/2024 10:57 AM TURNSTILE COLLECTOR Temperature 36.5 C (97.7 F) 05/03/2024 10:57 AM TURNSTILE COLLECTOR Respiratory Rate 16 05/03/2024 10:57 AM TURNSTILE COLLECTOR Oxygen Saturation 98% 05/03/2024 10:57 AM TURNSTILE COLLECTOR Inhaled Oxygen Concentration - - Weight 74.9 kg (165 lb 1.6 oz) 05/03/2024 10:57 AM TURNSTILE COLLECTOR Height 165.1 cm (5' 5 ) 05/03/2024 10:57 AM TURNSTILE COLLECTOR Body Mass Index 27.47 05/03/2024 10:57 AM TURNSTILE COLLECTOR Plan of Treatment Upcoming Encounters Date Type Department Care Team (Late st Contact Info) Description 05/30/2024 3:40 PM CDT Office Visit [facility] - [place] [address] [place] [phone] Suleman Montez, [address] [place] [address] Health Maintenance Due Date Last Done Comments [...] 08/2022, 12/23/2021, Additional history exists PHQ-2 (Physician [place]) Completed 05/03/2024 Meningococcal B Vaccine Aged Out [...] ADLs independently General On track(2024 9:15 AM TURNSTILE COLLECTOR) No Dianne Johnson, RN Note: 12/17/23: Patient [...] they occur. Establish regular follow ups with Joint Cutter Machine, take medications exactly as directed without skipping doses. Procedures Procedure Name Priority Date/Time Associated Diagnosis Comments OUTSIDE LAB (SCAN ORDER) 05/04/2024 ELECTROCARDIOGRAM (NON [place] ACQUIRED) Routine 05/03/2024 11:34 AM TURNSTILE COLLECTOR Paroxysmal atrial flutter ([facility]/HCC HHS/HCC) EVENT RECORDER (ECG) UP TO 30 DAYS REVIEW/INTERP Routine 05/03/2024 10:40 AM TURNSTILE COLLECTOR Paroxysmal atrial flutter ([facility]/HCC HHS/HCC) COLLECT.CAPILLARY (FNGR,HEEL,EAR) Routine 05/03/2024 10:39 AM TURNSTILE COLLECTOR Chronic anticoagulation OUTSIDE LAB (SCAN ORDER) 05/03/2024 OUTSIDE PT/INR (SCAN ORDER) 05/03/2024 OUTSIDE LAB (SCAN ORDER) 05/03/2024 PROTHROMBIN TIME, FINGERSTICK Routine 05/03/2024 Chronic anticoagulation IMAGE GENERIC 05/03/2024 COLLECT.CAPILLARY (FNGR,HEEL,EAR) Routine 04/25/2024 1:41 PM TURNSTILE COLLECTOR Chronic anticoagulation PROTHROMBIN TIME, FINGERSTICK Routine 04/25/2024 [...] 03/07/2024 COLLECT.CAPILLARY (FNGR,HEEL,EAR) Routine 02/29/2024 1:44 PM TURNSTILE COLLECTOR Type 2 diabetes mellitus with stage 3b chronic kidney disease, without long-term current use of insulin ([facility]) HEMOGLOBIN, GLYCOSYLATED Routine 02/29/2024 Type 2 diabetes mellitus with stage 3b chronic kidney disease, without long-term current use of insulin ([facility]) BONE DENSITY GENERIC (SCAN ORDER) 11/24/2023 LIPID [...] * EKG WELCHALLEN ACQUIRED (05/03/2024 11:34 AM TURNSTILE COLLECTOR) 05/03/2024 11:3 4 AM TURNSTILE COLLECTOR Narrative [facility] - 05/04/2024 9:41 AM TURNSTILE COLLECTOR [facility] [address] [place] [address] Test Date: 2024-05-03 Pat Name: ANA MARIA BOBO Department: 171 Room: Gender: Female Face Cleaner: : 1945 Requested By: SULEMAN MONTEZ Order Number: [id number] Reading MD: Suleman Montez Measurements Intervals [place] Rate: 132 P: -65 IA: 120 QRS: -27 QRSD: 132 T: 126 QT: 318 QTc: 472 Interpretive Statements Atrial Fibrillation with RVR LEFT BUNDLE BRANCH BLOCK STILE COLLECTOR Procedure Note Suleman Montez DO - 05/04/2024 [facility] [address] [place] [address] Test Date: 2024-05-03 Pat Name: ANA MARIA BOBO Department: 171 Room: Gender: Female Face Cleaner: : 1945 Requested By: SULEMAN MONTEZ Order Number: [id number] Reading MD: Suleman Montez Measurements Intervals [place] Rate: 132 P: -65 IA: 120 QRS: -27 QRSD: 132 T: 126 QT: 318 QTc: 472 Interpretive Statements Atrial Fibrillation with RVR LEFT BUNDLE BRANCH BLOCK STILE COLLECTOR us Suleman Montez DO PROCEDURES-ORDERABLE NO CHARGE Final Result [facility] * ECG Review/Interpret Only (05/03/2024 10:40 AM TURNSTILE COLLECTOR) Suleman Bergman DO - 05/03/2024 10:40 AM TURNSTILE COLLECTOR Suleman Montez DO 05/04/2024 9:57 AM ECG [...] is included. INR WHOLE BLOOD 2.00 [facility] 05/03/2024 Suleman Montez DO LABORATORY Final Re sult [facility] [address] [place] [address], [place] * OUTSIDE PT/INR (SCAN ORDER) (05/03/2024) Only the most recent of2 resultswithin the time period is included. 05/03/2024 [facility] Scanned SCANNING Final Resu lt * IMAGE GENERIC (05/03/2024) Only the most recent of10 resultswithin the time period is included. Anatomical Region Laterality Modality Other 05/03/2024 [facility] Scanned SCANNING Final Resu lt * PROCEDURE GENERIC (SCAN ORDER) (03/31/2024) 03/31/2024 [facility] Scanned SCANNING Final Resu lt * CT GENERIC (03/29/2024) Only the most recent of3 resultswithin the time period is included. Anatomical Region Laterality Modality Other 03/29/2024 Result [facility] Scanned SCANNING Final Resu lt * STRESS TEST (SCAN ORDER) (03/22/2024) Only the most recent of2 resultswithin the time period is included. 03/22/2024 [facility] Scanned SCANNING Final Resu lt * ECHO GENERIC (SCAN ORDER) (03/11/2024) Anatomical Region Laterality Modality Other 03/11/2024 [facility] Scanned SCANNING Final Resu lt * HEMOGLOBIN, GLYCOSYLATED (02/29/2024) HGB A1C 5.5 % [facility] 02/29/2024 Suleman Montez DO LABORATORY Final Re sult [facility] [address] [place] [address], [place] * BONE DENSITY GENERIC (SCAN ORDER) (11/24/2023) Anatomical Region Laterality Modality Other 11/24/2023 [facility] Scanned SCANNING Final Resu lt * (ABNORMAL) LIPID PANEL (08/14/2023 12:00 PM CDT) CHOLESTEROL 201(H) <200 MG/DL 08/14/2023 7:[address] [facility] TRIGLYCERIDES 97 <150 MG/DL 08/14/2023 7:[address] [facility] HDL 66 >40 MG/DL 08/14/2023 7:[address] [facility] LDL-C 116(H) <100 MG/DL 08/14/2023 7:[address] [facility] VLDL CALCULATION 19 5 - 28 MG/DL 08/14/2023 7:[address] [facility] CHOL/HDL RATIO 3.0 0.0 - 4.0 08/14/2023 7:[address] [facility] LDL/HDL 1.8 0.41 - 2.13 08/14/2023 7:[address] [facility] NON HDL CHOLESTEROL 135 <140 MG/DL 08/14/2023 7:[address] [facility] 08/14/2023 12:0 0 PM CDT Suleman Montez DO LABORATORY Final Re sult Performing Organization Address City/[facility]/ZIP Co de Phone Number [facility] [address] [place] [address], * DIABETIC RETINOPATHY EXAM (NEGATIVE)(SCAN) (04/21/2022) [facility] Scanned SCANNING Final Resu lt Performing Organization Address City/[facility] Co de Phone Number [facility] ON[facility] from Last 3 Months or Most [...] 4:17 PM 10/21/2021 4:52 PM Care Teams Dye Colorist Dyer Relationship Specialty Start Date End Date Suleman Montez DO [address] [place] [id number] PCP - General FAMILY PRACTICE 09/25/20 Dianne Johnson, RN [address] [place] [address] Snowboarding Instructor (Ambulatory) REGISTERED NURSE 08/14/20
--- OUTSIDE RECORDS SUMMARY | 2024-05-28 21:50 | XMS_ITS | Referral Summary ---
Author Organization [facility] [address] [place] [address] Address [address] [facility] [address] [place] [address] Care Team Providers Care Cut In Station Operator Name Role Phone Sanjeev Webster DO Primary Care Provide r Encounters Date Type Department Care Team Description 05/03/2024 Telephone [facility] Cardiology [address] [facility] [address] [place] [address] Paxton Villela MD Atrial Fibrillation 02/29/2024 10:30 AM CUSHION COVER INSPECTOR Office Visit [facility] Cardiology [address] [place] [address] [address] [place] [address] Paxton Villela MD History of mechanical aortic valve replacement (Primary Dx); Hypertension associated with diabetes (HCC); Coronary artery disease involving [place] coronary artery of [place] heart without angina pectoris; LBBB (left bundle branch block); Persistent atrial fibrillation (HCC); Hypertensive heart disease with congestive heart failure, unspecified heart failure type (HCC) from Last 3 Months Allergies Active Allergy Reactions Criticality Noted Date Comments Atorvastatin Muscle pain,Other (See comments) High 08/12/2021 Leg pain/cramps. Resolved after stopping. Bacitracin Benzalkonium Cortisone Rash,Unknown High 08/02/2023 Gramicidin D Hydrocortisone Neomycin Ixxpnyol-Gzfxcketrh-Qdaua yxin Other (See comments) Low 07/31/2020 It [...] monitor 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 toxicity with usp u se 05/06/2019 Coronary artery disease invo lving [place] coronary artery of [place] heart without angina pectoris 05/06/2019 Abnormal stress [...] a associated with type 2 diabetes mellitus ([facility]) 07/16/2015 Overview (06/13/2016): DM type [...] on file Legal Sex Female 6:10 AM CUSHION COVER INSPECTOR Gender Identity Not on file Sexual Orientation Not on file Last Filed Vital Signs Vital Sign Reading Time Taken Comments Blood Pressure 90/64 02/29/2024 10:36 AM CUSHION COVER INSPECTOR Pulse 68 02/29/2024 10:36 AM CUSHION COVER INSPECTOR Temperature 36.6 C (97.8 F) 08/17/2020 12:52 AM CDT Respiratory Rate 20 08/17/2020 12:52 AM CDT Oxygen Saturation 98% 02/29/2024 10:36 AM CUSHION COVER INSPECTOR Inhaled Oxygen Concentration - - Weight 79.8 kg (176 lb) 02/29/2024 10:36 AM CUSHION COVER INSPECTOR Height 165.1 cm (5' 5 ) 02/29/2024 10:36 AM CUSHION COVER INSPECTOR Body Mass Index 29.29 02/29/2024 10:36 AM CUSHION COVER INSPECTOR Plan of Treatment Not on file Procedures [...] LAB BLOOD ORDERABLES Final Resul t [facility] [address] [facility] Department [place] [address] * (ABNORMAL) Hemoglobin A1c (08/14/2020 9:38 AM CDT) Hgb A1C 6.0(H) 4.0 - 5.6 % [facility] Estimated Average Glucose 126 mg/dL [facility] Comment: The ADA recommends reporting an estimated Average Glucose (eAG) with all Hemoglobin A1c results using the equation derived from a study of 507 normal and diabetic adults. Minority populations were underrepresented and children were not included. (Diabetes Care 31:6354-7328, 2008). The eAG is not equivalent to a fasting glucose. 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
--- OUTSIDE RECORDS SUMMARY | 2024-05-28 21:50 | XMS_ITS | Clinical Summary ---
Author Organization [facility] [address] Address [address] [place] [address] Care Team Providers Care Private Duty Nurse Name Role Phone Sanjeev Webster DO Primary Care Provide r Allergies Active Allergy Reactions Criticality Noted Date Comments Atorvastatin Muscle pain,Other (See comments) High 08/12/2021 Leg pain/cramps. Resolved after stopping. Bacitracin Benzalkonium Cortisone Rash,Unknown High 08/02/2023 Gramicidin D Hydrocortisone Neomycin Ncnwluza-Zkbgvcsxno-Hvitr yxin Other (See comments) Low 07/31/2020 It [...] monitor 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 toxicity with manager long term care u se 05/06/2019 Coronary artery disease invo lving [place] coronary artery of [place] heart without angina pectoris 05/06/2019 Abnormal stress test 05/06/2019 Bradycardia 05/06/2019 LBBB (left bundle branch block) 12/08/2018 Myopathy 02/17/2018 Paroxysmal atrial flutter ([facility]) 08/12/2017 Assessment & Plan (08/14/2020 8:04 AM [...] a associated with type 2 diabetes mellitus ([facility]/HCC) 07/16/2015 Overview (06/13/2016): DM type 2 with [...] Type Department Care Team Description 05/03/2024 Telephone [facility] Cardiology [address] [place] [address] Paxton Villela MD Atrial Fibrillation 02/29/2024 10:30 AM SENIOR MATERIALS PLANNER Office Visit [facility] Cardiology [address] [place] [address] Paxton Villela MD History of mechanical aortic valve replacement (Primary Dx); Hypertension associated with diabetes (HCC); Coronary artery disease involving [place] coronary artery of [place] heart without angina pectoris; LBBB (left bundle [...] file Legal Sex Female 6:10 AM SENIOR MATERIALS PLANNER Gender Identity Not on file Sexual Orientation Not on file Obstetrics History Last Filed Vital Signs Vital Sign Reading Time Taken Comments Blood Pressure 90/64 02/29/2024 10:36 AM SENIOR MATERIALS PLANNER Pulse 68 02/29/2024 10:36 AM SENIOR MATERIALS PLANNER Temperature 36.6 C (97.8 F) 08/17/2020 12:52 AM CDT Respiratory Rate 20 08/17/2020 12:52 AM CDT Oxygen Saturation 98% 02/29/2024 10:36 AM SENIOR MATERIALS PLANNER Inhaled Oxygen Concentration - - Weight 79.8 kg (176 lb) 02/29/2024 10:36 AM SENIOR MATERIALS PLANNER Height 165.1 cm (5' 5 ) 02/29/2024 10:36 AM SENIOR MATERIALS PLANNER Body Mass Index 29.29 02/29/2024 10:36 AM SENIOR MATERIALS PLANNER Plan of Treatment Health Maintenance Due Date [...] MD LAB BLOOD ORDERABLES Final Resul t [facility] [address] [facility] Department [place] [address] * (ABNORMAL) Hemoglobin A1c (08/14/2020 9:38 AM CDT) Hgb A1C 6.0(H) 4.0 - 5.6 % [facility] Estimated Average Glucose 126 mg/dL [facility] Comment: The ADA recommends reporting an estimated Average Glucose (eAG) with all Hemoglobin A1c results using the equation derived from a study of 507 normal and diabetic adults. Minority populations were underrepresented and children were not included. (Diabetes Care 31:1931-7865, 2008). The eAG is not equivalent to a fasting glucose. Blood specimen (specimen) 08/14/2020 9:38 AM CDT 08/14/2020 9:54 AM CDT us Amparo Vergara MD LAB BLOOD ORDERABLES Final Resul t [facility] [address] [facility] [place] [place] [address] from Last 3 Months or Most Recently Relevant to Health Maintenance Insurance [facility] Advance Directives For more information, please contact: [phone] Documents on File Type Date Recorded Patient Customs Manager Expl anation ADVANCE DIRECTIVE 09/04/2020 1:26 PM OUTSI [facility] DNR ADVANCE DIRECTIVE 09/03/2020 12:52 PM ADVANCE DIRECTIVE 08/16/2020 11:40 AM OUTS [facility] DNR * Full Code (Latest Code Status on File) Date Activated Date Inactivated Comments 08/11/2020 6:08 PM 08/17/2020 5:34 PM Care Teams Private Duty Nurse Relationship Specialty Start Date End Date Sanjeev Webster DO [address] [place] [id number] PCP - General Family Medicine 03/11/21
[2024-05-28 22:00] LABS: Alanine Aminotransferase 13 U/L (6-35); Albumin Level 3.9 g/dL (3.5-5.1); Alkaline Phosphatase 70 U/L (38-126); Anion Gap 6 mmol/L (4-12); Aspartate Amino Transferase 27 U/L (14-36); Bilirubin,Total 0.6 mg/dL (0.2-1.3); Blood Urea Nitrogen 15 mg/dL (7-17); Calcium 10.4 mg/dL (8.4-10.2); Carbon Dioxide 32 mmol/L (22-30); Chloride 102 mmol/L (98-107); Estimated CRCL calculation 42 ml/min; Estimated Glomerular Filt Rate > 60; Glucose 129 mg/dL (65-110); Lipase 158 U/L (23-300); Potassium 3.9 mmol/L (3.4-5.0); Sodium 140 mmol/L (137-145)
[2024-05-28 22:05] LABS: INR 1.5
[2024-05-28 22:06] LABS: Partial Thromboplastin Time 42.4 Seconds (22.3-36.8)
[2024-05-28 22:11] LABS: Troponin I 0.018 ng/mL (0.000-0.034)
[2024-05-28 22:27] VITALS: BP 147/100; PULSE 111; RESP 18; O2SAT 99
[2024-05-28 22:28] VITALS: PULSE 111
[2024-05-28] MEDS: METOPROLOL TARTRATE INJ 5 MG/5 ML VIAL IV PUSH (22:28)
--- NOTE | 2024-05-28 22:32 | ED.GENADULT ---
HPI - General Adult General Chief complaint: Chest Pain Stated complaint: heart rate out of whack Time Seen by Provider: 05/28/24 21:28 History of Present Illness HPI narrative: Patient is a 79-year-old female who presents emergency department with chief complaint of palpitations. Patient reports he has history of atrial fibrillation reports had a mechanical valve replacement is on anticoagulants patient reports that today she noticed her heart started beating fast and irregular Related Data Home Medications ?Medication ?Instructions ?Recorded ?Confirmed ?Last Taken ?Type gabapentin 300 mg capsule 300 mg PO Q12H 01/09/19 05/26/24 04/08/24 08:30 History venlafaxine 150 mg 150 mg PO DAILY 01/09/19 05/26/24 04/08/24 08:30 History capsule,extended release 24 hr furosemide 20 mg tablet 20 mg PO DAILY 03/18/22 05/26/24 12/12/23 History potassium chloride 10 mEq 10 meq PO HS 03/18/22 05/26/24 04/07/24 21:39 History tablet,extended release cholecalciferol (vitamin D3) 1,000 units PO DAILY 08/23/23 05/26/24 04/08/24 08:30 History simvastatin 10 mg PO HS 08/23/23 05/26/24 04/07/24 21:50 History alprazolam 0.5 mg tablet 0.25 mg PO HS PRN Anxiety 11/01/23 05/26/24 04/03/24 20:45 History hydrocodone 5 mg-acetaminophen 325 1 - 2 tablet PO Q6H PRN Pain 11/01/23 05/26/24 04/08/24 08:30 History mg tablet omeprazole 40 mg capsule,delayed 40 mg PO DAILY 11/01/23 05/26/24 04/08/24 08:30 History release semaglutide 0.25 mg or 0.5 mg (2 0.5 mg subcut WEEKLY 11/12/23 05/26/24 Unknown History mg/3 mL) subcutaneous pen injector (Ozempic) warfarin 6 mg tablet 6 mg PO DAILY 03/08/24 05/26/24 04/08/24 17:40 History Allergies Allergy/AdvReac Type Severity Reaction Status Date / Time adhesive tape Allergy Intermediate Blister Verified 05/03/24 19:44 cortisone Allergy Intermediate Rash Verified 05/03/24 19:44 bacitracin Allergy Mild Rash Verified 05/03/24 19:44 neomycin Allergy Mild Rash Verified 05/03/24 19:44 polymyxin B Allergy Mild Rash Verified 05/03/24 19:44 Review of Systems Review of Systems: A 10 system review of systems was completed on the patient and is negative except for what is stated in the HPI. Nursing and ancillary documentation was reviewed. [facility] Past Medical History Medical History Irritable bowel syndrome Gallbladder disorder Arthritis Vitamin B12 deficiency Atrial fibrillation with slow ventricular response Chronic kidney disease, stage 3b Chronic kidney disease Baseline creatinine is around 1.50. Restless leg syndrome Congestive heart failure Echocardiogram in March 2021 showed normal FVC size, moderate LVH, borderline LV systolic function with an EF of 50 to 55%, and grade 1 diastolic dysfunction. Depression with anxiety Degenerative joint disease Burst fracture of thoracic vertebra Kidney stone Obstructive sleep apnea on CPAP Diverticulitis Hypertension Type 2 diabetes mellitus Chronic obstructive pulmonary disease Patient had a pulmonary function test on 02/24/2020 which was suggestive of COPD. Chronic anticoagulation Paroxysmal atrial fibrillation On amiodarone therapy Depression Hyperlipidemia Herniated disc Surgical History Surgical History History of right knee surgery Ligamentous repair. History of bilateral cataract extraction History of mechanical aortic valve replacement (2003) [facility] valve. History of ankle surgery ORIF left ankle fracture. History of hysterectomy Family History Family History Mother Family history of cardiovascular disease Family history of arthritis CHF (congestive heart failure) Depression Family history of coronary artery disease Father Family history of cardiovascular disease Diabetes mellitus Family history of arthritis Acute myocardial infarction Family history of diabetes mellitus in first degree relative Sibling , cancer Family history of arthritis Malignant neoplasm of prostate Sibling Family history of arthritis Malignant neoplasm of prostate Social History Social History Social History: The patient is and lives in her own home with her small dog. 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 No alcohol or illicit drug use. Surrogate decision maker: Shannon Vigil, sister. Code status: Full code. Smoking packs per day: 1 Smoking cigarettes per day: 20.0 Years smoked: 5 Smoking pack-years: 5.00 Smoking status: Former smoker Tobacco type: cigarettes Second hand tobacco smoke exposure: No Alcohol intake: never Substance use: never Substance use type: does not use Do You Feel Safe in your Home?: Yes Lack of Transportation: No Lack of Food: Never True Current Housing: I Have Housing Concerned About Future Housing: No Difficulty Paying Gas/Electric Bills: No Difficulty Paying for Meds: No Currently Unemployed: No Education: High School Diploma/GED Difficulty w/ Childcare or Family Care: No Living arrangements: alone Occupation/Education: retired 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 HEAD: Normocephalic, atraumatic. EYES: PERRLA and EOMI. ENT: Nares clear, no rhinorrhea or epistaxis. Mucous membranes moist. NECK: Supple. CHEST: Clear to auscultation. No respiratory distress. HEART: Tachycardic irregular rate and rhythm. No murmur heard. Normal peripheral pulses. ABDOMEN: Soft, nontender, nondistended, normal active bowel sounds. EXTREMITIES: Normal range of motion. No edema. SKIN: Warm, dry, no rash. NEURO: No focal deficits. Alert and oriented x3. PSYCH: Normal mood and affect. Vital Signs Vital signs: Vital Signs Pulse Rate 111 H 05/28/24 22:27 Respiratory Rate 18 05/28/24 22:27 Blood Pressure 147/100 H 05/28/24 22:27 Pulse Oximetry 99 05/28/24 22:27 Pulse Rate 63 05/29/24 00:41 Respiratory Rate 18 05/29/24 00:41 Blood Pressure 149/77 H 05/29/24 00:41 Pulse Oximetry 98 05/29/24 00:41 Oxygen Delivery Room Air 05/28/24 23:25 Medical Decision Making MDM Narrative Medical decision making narrative: Differential diagnosis includes AFib RVR, electrolyte abnormality, ACS Initial troponin was -3 hour delta troponin was negative patient's heart rate was controlled in the emergency department Patient will be discharged home to follow-up with her manager stone Vital Signs Vital Signs: Vital Signs Pulse Rate 111 H 05/28/24 22:27 Respiratory Rate 18 05/28/24 22:27 Blood Pressure 147/100 H 05/28/24 22:27 Pulse Oximetry 99 05/28/24 22:27 Pulse Rate 63 05/29/24 00:41 Respiratory Rate 18 05/29/24 00:41 Blood Pressure 149/77 H 05/29/24 00:41 Pulse Oximetry 98 05/29/24 00:41 Oxygen Delivery Room Air 05/28/24 23:25 Lab Data 05/28/24 21:44 05/28/24 21:44 Labs: Lab Results 05/28/24 05/29/24 Range/Units 21:44 00:19 WBC 5.6 (4.5-10.0) K/mm3 RBC 3.44 L (4.2-5.4) M/mm3 Hgb 11.4 L (12.0-15.0) g/dL Hct 35.6 L (37.0-47.0) % MCV 103.5 H (80-100) fl MCH 33.1 (26-34) pg MCHC 32.0 (32-36) g/dl RDW 13.2 (11.5-14.5) % Plt Count 218 (150-375) k/mm3 MPV 12.2 H (7.4-10.4) fl Immature Gran % (Auto) 0.2 (0-0.5) % Neut % (Auto) 59.0 (45.5-73.1) % Lymph % (Auto) 27.2 (18.3-44.2) % [place] % (Auto) 8.9 H (2.6-8.5) % Eos % (Auto) 3.8 (0-4.4) % Baso % (Auto) 0.9 (0.2-1.2) % Lymph # (Auto) 1.52 (0.9-3.2) K/mm3 [place] # (Auto) 0.5 (0.1-0.6) K/mm3 Eos # (Auto) 0.2 (0-0.3) K/mm3 Baso # (Auto) 0.1 (0.0-0.1) K/mm3 Abs Immat Gran (auto) 0.01 (0.00-0.031) K/mm3 Absolute Neuts (auto) 3.3 (1.3-6.7) K/mm3 Absolute Nucleated RBC 0.000 (0.0-0.012) K/mm3 Nucleated RBC % 0.0 (0.0-0.2) % PT 18.0 H (11.1-14.7) Seconds INR 1.5 APTT 42.4 H (22.3-36.8) Seconds Sodium 140 (137-145) mmol/L Potassium 3.9 (3.4-5.0) mmol/L Chloride 102 (98-107) mmol/L Carbon Dioxide 32 H (22-30) mmol/L Anion Gap 6 (4-12) mmol/L BUN 15 (7-17) mg/dL Creatinine 0.83 (0.7-1.0) mg/dL Estim Creat Clear Calc 42 ml/min Estimated GFR > 60 (59 - ) Glucose 129 H (65-110) mg/dL Calcium 10.4 H (8.4-10.2) mg/dL Total Bilirubin 0.6 (0.2-1.3) mg/dL AST 27 (14-36) U/L ALT 13 (6-35) U/L Alkaline Phosphatase 70 (38-126) U/L Troponin I 0.018 0.018 (0.000-0.034) ng/mL Total Protein 7.0 (6.3-8.2) g/dL Albumin 3.9 (3.5-5.1) g/dL Lipase 158 (23-300) U/L Discharge Plan Discharge Clinical Impression: Atrial fibrillation Patient Disposition: Home, Self-Care Condition: Stable Instructions: Antibiotic Form, A-fib (Atrial Fibrillation) (ED), Chest Pain (ED) Patient Language: Chadian Prescriptions: No Action Ozempic 0.25 mg or 0.5 mg (2 mg/3 mL) pen injector 0.5 mg subcut WEEKLY simvastatin 10 mg PO HS cholecalciferol (vitamin D3) 1,000 units PO DAILY cyanocobalamin (vitamin B-12) 1,000 mcg capsule 1,000 mcg PO DAILY Qty: 30 0RF sotalol 80 mg tablet 40 mg PO BID 30 Days Qty: 30 0RF Rx Instructions: administer after dialysis on dialysis days venlafaxine 150 mg Capsule,Extended Release 24hr 150 mg PO DAILY gabapentin 300 mg Capsule 300 mg PO Q12H potassium chloride 10 mEq tablet extended release 10 meq PO HS furosemide 20 mg tablet 20 mg PO DAILY hydrocodone-acetaminophen 5-325 mg tablet 1 - 2 tablet PO Q6H PRN (Reason: Pain) omeprazole 40 mg capsule,delayed release(DR/EC) 40 mg PO DAILY alprazolam 0.5 mg tablet 0.25 mg PO HS PRN (Reason: Anxiety) warfarin 6 mg tablet 6 mg PO DAILY polyethylene glycol 3350 [Miralax] 17 gram Powder In Packet 17 g PO QAM Qty: 30 0RF levalbuterol HCl 1.25 mg/3 mL Solution For Nebulization 1.25 mg inhalation Q6HRT Qty: 30 0RF melatonin 5 mg Tablet 5 mg PO HS Qty: 30 0RF methimazole 5 mg tablet 5 mg PO DAILY Qty: 90 3RF cinacalcet 30 mg tablet 15 mg PO DAILY Qty: 90 0RF Follow-up/Referrals: Darin,DO Sanjeev [Primary Care Provider] - Time of Disposition: 01:15
[2024-05-28 23:20] VITALS: BP 137/49; PULSE 60; RESP 21; O2SAT 100
[2024-05-28 23:25] VITALS: O2SAT 100
--- NOTE | 2024-05-29 00:02 | ECG_ITS ---
Test Date: 2024-05-29 00:18:05 Measurements Intervals Alvin Rate: 64 P: 0 MS: 0 QRS: -26 QRSD: 152 T: 78 QT: 473 QTc: 490 Interpretive Statements ATRIAL FIBRILLATION LEFT BUNDLE BRANCH BLOCK [120+ ms QRS DURATION, 80+ ms Q/S IN V1/V2, 85+ ms R IN I/aVL/V5/V6] Compared to ECG 05/28/2024 21:35:09 ATRIAL FIBRILLATION NOW PRESENT Electronically Signed On 05-29-2024 13:30:30 CDT by To Burns M.D.
[2024-05-29 00:41] VITALS: BP 149/77; PULSE 63; RESP 18; O2SAT 98
[2024-05-29 00:52] LABS: Troponin I 0.018 ng/mL (0.000-0.034)
[2024-05-29 01:50] VITALS: BP 137/76; PULSE 64; RESP 15; O2SAT 100
== END 2024-05-29 01:59 | disposition home or self-care (01) ==
PROVIDERS: Emergency Provider Emergency Medicine; PCP Student in an Organized Health Care Education/Training Program
DX: I48.91 Unspecified atrial fibrillation (principal); E11.22 Type 2 diabetes mellitus with diabetic chronic kidney disease; I13.0 Hypertensive heart and chronic kidney disease with heart failure and stage 1 through stage 4 chronic kidney disease, or unspecified chronic kidney disease; N18.32 Chronic kidney disease, stage 3b; I50.9 Heart failure, unspecified; E78.5 Hyperlipidemia, unspecified; E53.8 Deficiency of other specified B group vitamins; J44.9 Chronic obstructive pulmonary disease, unspecified; G25.81 Restless legs syndrome; G47.33 Obstructive sleep apnea (adult) (pediatric); M19.90 Unspecified osteoarthritis, unspecified site; K58.9 Irritable bowel syndrome, unspecified; F41.8 Other specified anxiety disorders; Z95.2 Presence of prosthetic heart valve; Z87.442 Personal history of urinary calculi; Z87.891 Personal history of nicotine dependence; Z90.710 Acquired absence of both cervix and uterus; Z98.42 Cataract extraction status, left eye; Z98.41 Cataract extraction status, right eye; Z79.85 Long-term (current) use of injectable non-insulin antidiabetic drugs; Z79.899 Other long term (current) drug therapy; Z79.01 Long term (current) use of anticoagulants; I44.7 Left bundle-branch block, unspecified; I44.0 Atrioventricular block, first degree; R94.31 Abnormal electrocardiogram [ECG] [EKG]
CPT/HCPCS: 36415; 71046; 80053; 83690; 84484; 85025; 85610; 85730; 93005; 96374; 99284

== ENCOUNTER 2024-06-15 13:17 | Inpatient (IN) | payer OTHER, SELFPAY ==
[2024-06-15] VITALS (10 sets, daily range): BP systolic 146–199; BP diastolic 59–97; PULSE 60–87; RESP 13–18; TEMP 36.7–36.8; O2SAT 97–99; BMI 29.5
--- NOTE | ~2024-06-15 | CT_ITS ---
CT abdomen pelvis w con Ordering provider: Jazmyn Hartmann MD History: 79 years Female with . N/V/D; reports black stool . Comparison: April 07, 2024 Technique: CT abdomen and pelvis with IV and without oral contrast. Automated exposure control and it erative reconstruction technique were employed. The dose-length product was 1092.31 mGy-cm. 100 mL Om nipaque 350 was given IV. Findings: VISUALIZED LOWER CHEST: Normal. UPPER ABDOMINAL ORGANS: Liver: Normal. Focus of calcification is seen in the liver surface. Gallbladder: Normal. Spleen: Normal. Stomach/duodenum: Hyperdense areas seen in the duodenal bulb which may be residual food, but possibil ity of contrast extravasation cannot be excluded. Upper GI endoscopy is advised. Pancreas: Normal. Adrenals: Normal. Kidneys: Tiny cyst in the left kidney midpole. Tiny cyst in the right kidney mid and upper poles. PELVIC ORGANS: The bladder is normal. BOWEL AND MESENTERY: Colon: No evidence of diverticulitis. Slight thickening in the area of the sigmoid colon is seen. Cli nical correlation and further evaluation advised.. Normal appendix. Small Bowel: Normal. No obstruction. Peritoneum/mesentery: No free air or free fluid. No mesenteric lymphadenopathy. RETROPERITONEUM: Mild atheromatous disease of the abdominal aorta. No retroperitoneal lymphadenopat hy. MUSCULOSKELETAL: Superficial soft tissues: The superficial soft tissues are normal. Bones: Age appropriate degenerative changes of the spine. Pubic symphysitis. IMPRESSION: 1. No evidence of appendicitis, diverticulitis or intestinal obstruction. 2. Hyperdensity seen in the duodenal bulb. Upper GI endoscopy is advised. 3. Area of thickening in the sigmoid colon: Clinical correlation and follow-up advised. Reviewed, dictated and finalized at location A.
--- NOTE | ~2024-06-15 | XR_ITS ---
XR chest 1V portable Ordering provider: Jazmyn Hartmann MD History: 79 years Female with . sputum production . Comparison: May 28, 2024 FINDINGS: MEDIASTINUM: The cardiac silhouette is slightly enlarged. Postoperative changes in the mediastinum. LUNGS: No effusions or pneumothorax. Interstitial changes seen bilaterally in the lung bases which ma y indicate fibrotic changes. Superimposed pneumonitis in the right lung base is not excluded. OTHER: No free air under the diaphragm. IMPRESSION: Prominent markings with interstitial thickening in the lung bases which may indicate pneumonitis. Cli nical correlation advised. Reviewed, dictated and finalized at location A. IMPRESSION: Prominent markings with interstitial thickening in the lung bases which may ind icate pneumonitis. Clinical correlation advised.
--- OUTSIDE RECORDS SUMMARY | 2024-06-15 14:50 | XMS_ITS | Encounter Summary ---
Author Organization [facility] Address [address] [facility] [address] [place] [address] Care Team Providers Care Charge Poster Name Role Phone Hong Holder MD Primary Care Provider [phone] Hong Holder MD Primary Care Provider [phone] Juan Pablo Dominguez MD Primary Care Provider Miscellaneous, Not In File Primary Care Provider Unavailable Sanjeev Webster DO Primary Care Provide r Encounter Details Date Type Department Care Team (Late st Contact Info) Description 05/28/2016 Orders Only [facility] ProviderCasi MD [address] [place] [id number] Social History Tobacco Use Types Packs/Day Years Used Date Smoking Tobacco: Never Alcohol Use Standard Drinks/Week Comments No 0 (1 standard drink = 0.6 oz pur e alcohol) Comments Unknown Sex and Gender Information Value Date Recorded Sex Assigned at Not on file Legal Sex 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 Gender Identity Not on file Sexual [...] on filedocumented in this encounter Care Teams Charge Poster Relationship Specialty Start Date End Date Hong Holder MD [address] [address] PCP - General 06/06/16 01/11/20 Hong Holder MD [address] [address] PCP - General 01/15/15 06/05/16 Juan Pablo Dominguez MD [address] [address] PCP - General Family Medicine 01/12/20 08/06/20 Miscellaneous, Not In File PCP - General 08/07/20 2 Sanjeev Webster DO [address] [place] [address] PCP - General Family Medicine 03/11/21 documented as of this encounter
--- OUTSIDE RECORDS SUMMARY | 2024-06-15 14:50 | XMS_ITS | Referral Summary ---
Author Organization [facility] [place] [address] Address [address] [place] [address] Care Team Providers Care Answering Service Agent Name Role Phone Sanjeev Webster DO Primary Care Provide r Encounters Date Type Department Care Team Description 05/03/2024 Telephone [facility] Cardiology [address] [facility] [address] [place] [address] Paxton Villela MD Atrial Fibrillation from Last 3 Months Allergies Active Allergy Reactions Criticality Noted Date Comments Atorvastatin Muscle pain,Other (See comments) High 08/12/2021 Leg pain/cramps. Resolved after stopping. Bacitracin Benzalkonium Cortisone Rash,Unknown High 08/02/2023 Gramicidin D Hydrocortisone Neomycin Umzixdrn-Aiyvyfcyuw-Rwpaa yxin Other (See comments) Low 07/31/2020 It [...] monitor 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 toxicity with exterminator helper u se 05/06/2019 Coronary artery disease invo lving [place] coronary artery of [place] heart without angina pectoris 05/06/2019 Abnormal stress test 05/06/2019 Bradycardia 05/06/2019 LBBB (left bundle branch block) 12/08/2018 Myopathy 02/17/2018 Paroxysmal atrial flutter ([facility]) 08/12/2017 Assessment & Plan (08/14/2020 8:04 AM [...] associated with type 2 diabetes mellitus ([facility]) 07/16/2015 Overview (06/13/2016): DM type [...] on file Legal Sex Female 6:10 AM CHECKERER HAND Gender Identity Not on file Sexual Orientation Not on file Last Filed Vital Signs Vital Sign Reading Time Taken Comments Blood Pressure 90/64 02/29/2024 10:36 AM CHECKERER HAND Pulse 68 02/29/2024 10:36 AM CHECKERER HAND Temperature 36.6 C (97.8 F) 08/17/2020 12:52 AM CDT Respiratory Rate 20 08/17/2020 12:52 AM CDT Oxygen Saturation 98% 02/29/2024 10:36 AM CHECKERER HAND Inhaled Oxygen Concentration - - Weight 79.8 kg (176 lb) 02/29/2024 10:36 AM CHECKERER HAND Height 165.1 cm (5' 5 ) 02/29/2024 10:36 AM CHECKERER HAND Body Mass Index 29.29 02/29/2024 10:36 AM CHECKERER HAND Plan of Treatment Not on file Procedures [...] LAB BLOOD ORDERABLES Final Resul t [facility] [place] [address] * (ABNORMAL) Hemoglobin A1c (08/14/2020 9:38 AM CDT) Hgb A1C 6.0(H) 4.0 - 5.6 % [facility] Estimated Average Glucose 126 mg/dL [facility] Comment: The ADA recommends reporting an estimated Average Glucose (eAG) with all Hemoglobin A1c results using the equation derived from a study of 507 normal and diabetic adults. Minority populations were underrepresented and children were not included. (Diabetes Care 31:0212-0898, 2008). The eAG is not equivalent to a fasting glucose. Blood specimen (specimen) 08/14/2020 9:38 AM CDT 08/14/2020 9:54 AM CDT Amparo Vergara MD LAB BLOOD ORDERABLES Final Resul t [facility] [address] [facility] [place] [address] from Last 3 Months or Most Recently Relevant to Health Maintenance Insurance [facility] Member Subscriber Plan / Payer (Ef fective 2011-Present) Name:RADHA BOBO Relation to Subscriber:Self Name:Radha Bobo Payer ID:[id number] (NAIC) Type:MEDICARE RISK OTHER Address: [facility] [address] Advance Directives For more information, please contact: [phone] Documents on File Type Date Recorded Patient Burn Nurse Expl anation ADVANCE DIRECTIVE 09/04/2020 1:26 PM [facility] ADVANCE DIRECTIVE 09/03/2020 12:52 PM ADVANCE DIRECTIVE 08/16/2020 11:40 AM OUTS [facility] * Full Code (Latest Code Status on File) Date Activated Date Inactivated Comments 08/11/2020 6:08 PM 08/17/2020 5:34 PM Care Teams Answering Service Agent Relationship Specialty Start Date End Date Sanjeev Webster DO [address] [place] [id number] PCP - General Family Medicine 03/11/21
--- OUTSIDE RECORDS SUMMARY | 2024-06-15 14:50 | XMS_ITS | Clinical Summary ---
Author Organization [facility] Address [address] [place] [address] Phone Care Team Providers Care Instant Potato Processing Supervisor Name Role Phone Sanjeev Webster DO Primary Care Provider + Blade Phillips MD Unavailable [phone] Allergies Active Allergy Reactions Criticality Noted Date [...] topic Insurance MEDICARE C [employer] Care Teams Instant Potato Processing Supervisor Relationship Specialty Start Date End Date Sanjeev Webster DO [address] [place] [address] PCP - General Family Medicine 09/14/23 Blade Phillips MD [address] [place] [phone] Oncology 09/14/23
--- OUTSIDE RECORDS SUMMARY | 2024-06-15 14:50 | XMS_ITS | Clinical Summary ---
Author Organization [facility] Address [address] [place] [address] Care Team Providers Care Equipment Planner Name Role Phone Juan Pablo Dominguez MD Primary Care Provider Unavailabl e Source Comments [facility],non-owned Affiliates and Associated Physician Practices is amultiple site organization consisting of ambulatory clinics and hospital sitesin [place], [place], [place] and [place]. This disclosure is being madepursuant to the Care Everywhere program and may not contain all information available regarding this patient. Last updated 17.[employer] [facility] Allergies No known active allergies Medications * [...] 2023 08/29/2021, 02/23/2021, 06/01/2020, Additional history exists DEPRESSION SCREENING 03/09/2024 MEDICARE AWV CALENDAR YEAR 2024 INFLUENZA VACCINE (Season Ended) 2024 12/13/2018, 12/03/2017, 12/25/2016, Additional history exists HEPATITIS B [...] 4:06 AM 08/11/2020 4:47 PM Care Teams Equipment Planner Relationship Specialty Start Date End Date Juan Pablo Dominguez MD PCP - General Family Medicine 08/09/20
--- OUTSIDE RECORDS SUMMARY | 2024-06-15 14:50 | XMS_ITS | Continuity of Care Document ---
Demographics Address [address] [place] [address] Work Phone Mobile Phone Home Phone Email Address pt refused Portal 01/22 Phone Preferred Language en Marital Status Congregation Affiliation Unknown Race White Ethnic Group Not or Lati no Author Organization [employer] Address [address] [place] [address] Phone Care Team Providers Care Band Singer Name Role Phone Kiersten Pugh NP Unavailable [...] INC PLATELETS AND DIFFERENTIAL COMPREHEN METABOLIC PANEL [facility] 0 BRAIN NATRIURETIC PEPTIDE (BNP) 020 PROTHROMBIN TIME W/INR (PROTIME,PT) ROUTINE VENIPUNCTURE OFFICE DCSLT-RTM-WVUOWEHE BODY MASS INDEX DOCD SYST BP LT 130 MM HG DIAST BP < 80 MM HG CBC, INC PLATELETS AND DIFFERENTIAL COMPREHEN METABOLIC PANEL CMP 0 FERRITIN LEVEL IRON (FE), TOTAL TIBC, & % SATURATION PROTHROMBIN TIME W/INR (PROTIME,PT) ROUTINE VENIPUNCTURE OFFICE HIGXR-XLS-[id number] BODY MASS INDEX DOCD SYST BP LT 130 MM HG DIAST BP < 80 MM HG Pt inelig neg scrn depres CBC, INC PLATELETS AND DIFFERENTIAL COMPREHEN METABOLIC PANEL CMP 0 FERRITIN LEVEL PROTHROMBIN TIME W/INR (PROTIME,PT) ROUTINE VENIPUNCTURE MICROALBUMIN, QN (URINE) CREATININE, (U-R) OFFICE QEGQU-UBC-WFVKMLSH BODY MASS INDEX DOCD SYST BP GE [...] screen annual Clin depression screen doc OFFICE [id number]-BIF-[id number] PROTIME (PT) - OFFICE LAB ONLY 20 [...] STICK-COLLECTION OF CAPIL MIRIAM BLOOD SPECIMEN OFFICE WCHDY-TWG-BWAZQKUR BODY MASS INDEX DOCD SYST BP >= 140 MM HG6 IT DIAST BP < 80 MM HG Pt inelig neg scrn depres CBC, INC PLATELETS AND DIFFERENTIAL COMPREHEN METABOLIC PANEL CMP 0 HEMOGLOBIN A1C HGA1C, GLYCO PROTHROMBIN TIME W/INR (PROTIME,PT) VITAMIN B12 (SERUM) ROUTINE VENIPUNCTURE OFFICE UNVSO-WSS-ILSRVXSM BODY MASS INDEX DOCD SYST BP LT [...] MED MERGE DSCHRG MED/CURRENT MED MERGE OFFICE SJYRM-ELI-SGYNCAUJ BODY MASS INDEX DOCD SYST BP LT [...] (SERUM) VITAMIN D, 25-HYDROXY ROUTINE VENIPUNCTURE OFFICE PVAKB-SWB-PADEORTL BODY MASS INDEX DOCD SYST BP LT 130 MM HG DIAST BP < 80 MM HG PROTIME (PT) - OFFICE LAB ONLY 19 FINGER OR HEEL STICK-COLLECTION OF CAPIL MIRIAM BLOOD SPECIMEN OFFICE HBXUO-EAE-INNYDOJZ BODY MASS INDEX DOCD SYST BP LT 130 MM HG DIAST BP < 80 MM HG PROTIME (PT) - OFFICE LAB ONLY 19 FINGER OR HEEL STICK-COLLECTION OF CAPIL MIRIAM BLOOD SPECIMEN OFFICE UGKUB-BHS-GQWREILJ BODY MASS INDEX DOCD SYST BP LT 130 MM HG DIAST BP < 80 MM HG PROTIME (PT) - OFFICE LAB ONLY 19 FINGER OR HEEL STICK-COLLECTION OF CAPIL MIRIAM BLOOD SPECIMEN Advance Directives Directive Yes / No Effective Date File Name No Information Encounters Encounter Description Practice Location Reason(s) For Visit Diagnoses Date Provider Providers Copied on Encounter [facility], [address], [place], [place], [address] , tel: [phone] [facility] No Information 1 Keaton Burch. [facility] [place], [address], [place]. [phone] [employer], [address], [place], [place], [address] , tel: [phone] [facility] No Information 0 1 Christi Hayes. [address] [place], [place], [address], [place]. [phone] OFFICE LQWCK-MOQ-ZMI LUIS [facility], [address], [place], [place], [address] , tel:[phone] [facility] Chronic Conditions (chief complaint) Hypertensive [...] onic obstructive airway disease 0 Keaton Burch. [address] [place] [address], [address], . tel:[phone] Referring Provider: Natalee Mcghee, [address] [place] [address], [address] . tel:[phone] [facility], [address], [place], [place], [address] , tel:[phone] [facility] No Information 0 Yara Albright. [address] [place] [address], [id number], . tel:[phone] OFFICE [facility], [address], [place], [place], [address] , tel:[phone] [facility] Chronic Conditions (chief complaint) Body [...] peripheral angiopathy without gangrene 0 Kena Dawson. [address] [place] [address], [id number], . tel:[phone] Referring Provider: Natalee Mcghee, [address] [place] [address], [address] . tel:[phone] [facility], [address], [place], [place], [address] , tel: [phone] [facility] Unspecified atrial flutterEssenti al (primary) hypertension Payam-2 0 Yara Albright. [address] [place] [address], [id number], [place]. tel:[phone] [facility], [address], [place], [place], [address] , tel: [phone] Care Management No Information Payam-0 0 Yara Albright. [address] [place] [address], [id number], . tel:[phone] OFFICE [facility], [address], [place], [place], [address] , [place] tel: [phone] [facility] Chronic Conditions (chief complaint) Iron [...] angiopathy without gangrene Payam-0 0 Yara Albright. [address] [place] [address], [id number], [place]. tel:[phone] Referring Provider: Natalee Mcghee, [address] [place] [address], [address] . tel:[phone] OFFICE [facility], [address], [place], [place], [address] , [place] tel: [phone] [facility] Chronic Conditions (chief complaint) Presence [...] yosteoarthriti s, unspecified July-0 0 Yara Albright. [address] [place] [address], [id number], . tel:[phone] Referring Provider: Natalee Mcghee, [address] [place] [address], [address] . tel:[phone] [facility], [address], [place], [place], [address] , tel: [phone] [facility] Presence of prosthetic heart valveMild cognitive impairmentLong term (current) use of anticoagulants Jun- 0 Gallo Pitts. [address] [facility], [address], [place], [address], [place]. tel:[phone] Referring Provider: Hong Holder, [address] [facility] [address], [place], [address] . tel:[phone] [facility], [address], [place], [place], [address] , tel: [phone] [facility] Hypertensive heart disease with heart failure Jun-2 0 Gallo Pitts. [address] [facility], [address], [place], [address], [place]. [phone] [facility], [address], [place], [place], [address] , tel: [phone] [facility] Presence of prosthetic heart valveLong term (current) use of anticoagulants Apr-2 2-202 0 Gallo Pitts. [address], [address], [place], [address], . tel:[phone] Referring Provider: Hong Holder, [address], [place], [address] . tel:[phone] [facility], [address], [place], [place], [address] , tel: [phone] [facility] No Information 0 Gallo Pitts. [address], [address], [place], [address], . tel:[phone] [facility], [address], [place], [place], [address] , tel: [phone] [facility] Presence of prosthetic heart valveLong term (current) use of anticoagulants 0 Gallo Pitts. [address], [address], [address], [place]. [phone] Referring Provider: Hong Holder, [address], [place], [address] . tel:[phone] [facility] [address], [place], [place], [address] , tel: [phone] [facility] Presence of prosthetic heart valveLong term (current) use of anticoagulants 0 Gallo Pitts. [address], [address], [place], [address], [place]. tel:[phone] Referring Provider: Hong Holder, [address], [place], [address] . tel:[phone] [facility], [address], [place], [place], [address] , tel: [phone] [facility] Nurse Visit (chief complaint) Presence of prosthetic heart valveLong term (current) use of anticoagulants 0 Gallo Pitts. [address], [address], [place], [place], [address], [place]. tel:[phone] Referring Provider: Hong Holder, [address], [place], [address] . tel:[phone] OFFICE QYUUJ-FHB-EZX ANDED [facility], [address], [place], [place], [address] , tel: [phone] [facility] Sick (chief complaint)C hronic Conditions (chief complaint) Respiratory illnessEssenti al (primary) hypertension 0 0 Gallo Pitts. [address] [employer] , [address], [place], [place], [address], [place]. tel:[phone] Referring Provider: Hong Holder, [address], [place], [address] . tel:[phone] [facility], [address], [place], [place], [address] , tel: [phone] [facility] DizzinessNumbn essSyncope, unspecified syncope type 0 Gallo Pitts. [address] , [address], [place], [place], [address], [place]. tel:[phone] OFFICE JECRS-WVW-TTP LUIS [facility], [address], [place], [place], [address] , tel: [phone] [facility] 3 month (chief complaint)C hronic Conditions (chief complaint) Body mass index (BMI) 31.0-31.9, adultPre-synco peChronic obstructive airway diseasePrimary hyperparathyro idismHypertens julien heart disease with heart failureArterio sclerosis of brev[place] mission arteries of extremityType 2 diabetes mellitus with diabetic polyneuropathy Vitamin B12 deficiencyChro kaushik diastolic (congestive) heart failureAtheros clerosis of aortaMajor depressive disorder, single episode, in partial remissionParox ysmal atrial fibrillation 0 Gallo Pitts. [address] [employer] , [address], [place], [place], [address], [place]. tel:[phone] Referring Provider: Hong Holder, [address], [place], [address] . tel:[phone] [facility] [address], [place], [place], [address] , tel: [phone] [facility] Presence of prosthetic heart valveLong term (current) use of anticoagulants 0 Gallo Pitts. [address] , [address], [place], [address], . tel:[phone] Referring Provider: Hong Holder, [address], [place], [address] . tel:[phone] [facility] [address], [place], [place], [address] , tel: [phone] [facility] Presence of prosthetic heart valveLong term (current) use of anticoagulants Gallo Pitts. [address] , [address], [place], [address], [place]. tel:[phone] Referring Provider: Hong Holder, [address], [place], [address] . tel:[phone] [facility] [address], [place], [address] , tel: [phone] Care Management Atrial fibrillation, unspecified type Gallo Pitts. [address] , [address], [place], [address], [place]. tel:[phone] Transitional Care- First [address] [facility] [address], [place], [place], [address] , tel: [phone] [facility] Hospital F/U (chief complaint) Body mass index (BMI) 32.0-32.9, adultAcute frontal sinusitis, recurrence not specifiedAtria l fibrillation, unspecified typeH/O prosthetic heart valve Gallo Pitts. [address] , [address], [place], [address], [place]. tel:[phone] Referring Provider: Hong Holder, [address], [place], [address] . tel:[phone] [facility], [address], [place], [place], [address] , tel: [phone] Care Management No Information Gallo Pitts. [address], [address], [place], [address], [place]. [phone] Referring Provider: Hong Holder, [address], [place], [address] . tel:[phone] [facility], [address], [place], [place], [address] , tel: [phone] Care Management Chronic obstructive airway disease Dec- Gallo Pitts. [address], [address], [place], [address], [place]. [phone] Referring Provider: Hong Holder, [address], [place], [address] . tel:[phone] OFFICE UDHLC-NXU-KDP LUIS [facility], [address], [place], [place], [address] , tel: [phone] [facility] Hospital Follow Up (chief complaint) Obstructive sleep apnea (adult) (pediatric)Mem ory lossAdeustisce care planningCerebr al atherosclerosi sMild cognitive impairment Dec- 9 Gallo Pitts. [address], [address], [address], [place]. [phone] Referring Provider: Hong Holder, [address], [place], [address] . tel:[phone] [facility], [address], [place], [place], [address] , tel: [phone] [facility] Presence of prosthetic heart valveLong term (current) use of anticoagulants Gallo Pitts. [address] , [address], [place], [place], [address], [place]. tel:[phone] Referring Provider: Hong Holder, [address], [place], [address] . tel:[phone] [facility], [address], [place], [place], [address] , tel: [phone] Care Management Presence of prosthetic heart valveLong term (current) use of anticoagulants Gallo Pitts. [address] , [address], [place], [address], [place]. tel:[phone] Referring Provider: Hong Holder, [address], [place], [address] . tel:[phone] OFFICE ZQNBK-PXD-NMG LUIS [facility], [address], [place], [place], [address] , tel: [phone] [facility] 3 month follow up (chief complaint)C hronic Conditions (chief complaint) Benign neoplasm of parathyroid glandVitamin B12 deficiencyIron deficiency anemia, unspecifiedAcu te pain of left shoulder Gallo Pitts. [address], [address], [place], [place], [address], [place]. tel:[phone] Referring Provider: Hong Holder, [address], [place], [address] . tel:[phone] [facility], [address], [place], [place], [address] , [place] tel: [phone] [facility] Presence of prosthetic heart valveLong term (current) use of anticoagulants Gallo Pitts. [address] , [address], [place], [place], [address], [place]. tel:[phone] Referring Provider: Hong Holder, [address], [place], [address] . tel:[phone] [facility], [address], [place], [place], [address] , [place] tel: [phone] [facility] Chest pain, unspecified Gallo Pitts. [address] , [address], [place], [place], [address], [place]. tel:[phone] OFFICE [facility], [address], [place], [place], [address] , [place] tel: [phone] Care Management SOB , DSOUZA and Weight Gain (chief complaint)C hronic Conditions (chief complaint) Body mass index (BMI) 31.0-31.9, adultNonintrac table headache, unspecified chronicity pattern, unspecified headache typeFinger swellingChroni c obstructive airway disease Gallo Pitts. [address] , [address], [place], [place], [address], [place]. tel:[phone] Referring Provider: Hong Holder, [address], [place], [address] . tel:[phone] OFFICE [facility]AN[facility]SOX[facility]RT[facility], [address], [place], [place], [address] , [place] tel: [phone] [facility] pain (chief complaint) Primary hyperparathyro idismBody mass index (BMI) 32.0-32.9, adultTrochante tessa bursitis of right hipRotator cuff arthropathy of left shoulder Gallo Pitts. [address] , [address], [place], [place], [address], [place]. tel:[phone] Referring Provider: Hong Holder, [address] [employer] [employer], [place], [address] . tel:[phone] [facility], [address], [place], [place], [address] , tel: [phone] [facility] Presence of prosthetic heart valveLong term (current) use of anticoagulants Gallo Pitts. [address] , [address], [place], [place], [address], . tel:[phone] Referring Provider: Hong Holder, [address] [facility] [address], [place], [address] . tel:[phone] [facility], [address], [place], [place], [address] , tel: [phone] [facility] Chronic Conditions (chief complaint)h eadache (chief complaint)r t thumb frx (chief complaint) Paroxysmal atrial fibrillationCh ronic diastolic (congestive) heart failureHyperte nsive heart disease with heart failureHyperli pidemia, unspecifiedArt eriosclerosis of [place] arteries of extremityMajor depressive disorder, single episode, in partial remissionGastr o-esophageal reflux disease without esophagitisTyp e 2 diabetes mellitus with diabetic polyneuropathy Atherosclerosi s of aortaBody mass index (BMI) 32.0-32.9, adultDysphagia , unspecifiedTen niko headacheOther nonthrombocyto penic purpuraClosed nondisplaced fracture of distal phalanx of right thumb with routine healing, subsequent encounter Gallo Pitts. [address] [facility], [address], [place], [place], [address], . tel:[phone] Referring Provider: Hong Holder, [address] [facility] [address], [place], [address] . tel:[phone] [facility], [address], [place], [place], [address] , tel: [phone] [facility] Presence of prosthetic heart valveLong term (current) use of anticoagulants Gallo Pitts. [address] [facility], [address], [place], [address], [place]. tel:[phone] Referring Provider: Hong Holder, [address] [facility] [address], [place], [address] . tel:[phone] [facility], [address], [place], [place], [address] , tel: [phone] [facility] Sprain of right thumb, unspecified site of finger, initial encounterPrese nce of prosthetic heart valveLong term (current) use of anticoagulants Gallo Pitts. [address] , [address], [place], [place], [address], . tel:[phone] Referring Provider: Hong Holder, [address], [place], [address] . tel:[phone] [employer], [address], [place], [place], [address] , [place] tel: [phone] [facility] Encounter for exam of blood pressure w/o abnormal findingsPresen ce of prosthetic heart valveLong term (current) use of anticoagulants Gallo Pitts. [address] , [address], [place], [place], [address], [place]. tel:[phone] Referring Provider: Hong Holder, [address], [place], [address] . tel:[phone] [facility], [address], [place], [place], [address] , [place] tel: [phone] [facility] Chronic obstructive airway disease Gallo Pitts. [address] , [address], [place], [address], [place]. tel:[phone] Referring Provider: Hong Holder, [address], [place], [address] . tel:[phone] [employer], [address], [place], [place], [address] , [place] tel: [phone] [facility] Lung diseaseHyperte nsive heart disease with heart failureDysphag ia, unspecifiedRig ht foot pain 9 Gallo Pitts. [address], [address], [place], [address], [place]. tel:[phone] Referring Provider: Hong Holder, [address], [place], [address] . tel:[phone] [employer], [address], [place], [place], [address] , tel: [phone] [facility] Abnormal PFT 9 Gallo Pitts. [address] [facility], [address], [place], [place], [address], [place]. tel:[phone] [employer], [address], [place], [place], [address] , tel: [phone] [facility] Presence of prosthetic heart valveLong term (current) use of anticoagulants Gallo Pitts. [address] [facility], [address], [place], [place], [address], [place]. tel:[phone] Referring Provider: Hong Holder, [address] [facility] [address], [place], [address] . tel:[phone] [employer], [address], [place], [place], [address] , tel: [phone] [facility] Paroxysmal atrial fibrillationAg e-related osteoporosis without current pathological fractureMorbid (severe) obesity due to excess caloriesChroni c diastolic (congestive) heart failureHyperte nsive heart disease with heart failureHyperli pidemia, unspecifiedTyp e 2 diabetes mellitus with diabetic peripheral angiopathy without gangreneMajor depressive disorder, single episode, in partial remissionArter iosclerosis of [place] arteries of extremityGastr o-esophageal reflux disease without esophagitisTyp e 2 diabetes mellitus with diabetic polyneuropathy Atherosclerosi s of aortaPresence of prosthetic heart valve Gallo Pitts. [address] [facility], [address], [place], [place], [address], . tel:[phone] [employer], [address], [place], [place], [address] , tel: [phone] [facility] SOB (shortness of breath) on exertion Gallo Pitts. [address] , [address], [place], [place], [address], [place]. tel:[phone] [facility], [address], [place], [place], [address] , tel: [phone] [facility] Presence of prosthetic heart valveLong term (current) use of anticoagulants 9 Gallo Pitts. [address] , [address], [place], [place], [address], [place]. tel:[phone] Referring Provider: Hong Holder, [address] [facility] [address], [place], [address] . tel:[phone] [facility], [address], [place], [place], [address] , tel: [phone] [facility] Acute pain of left shoulder 9 Gallo Pitts. [address] , [address], [place], [address], [place]. tel:[phone] [employer], [address], [place], [place], [address] , [place] tel: [phone] [facility] Acute pain of left shoulderFall, subsequent encounterCoccy dynia 9 Gallo Pitts. [address] , [address], [place], [place], [address], [place]. tel:[phone] Referring Provider: Hong Holder, [address] [facility] [address], [place], [address] . tel:[phone] [facility], [address], [place], [place], [address] , [place] tel: [phone] [facility] Obstructive sleep apneaShortness of breath 8 Gallo Pitts. [address] , [address], [place], [address], [place]. tel:[phone] Referring Provider: Hong Holder, [address] [facility] [address], [place], [address] . tel:[phone] [facility], [address], [place], [place], [address] , tel: [phone] [facility] Presence of prosthetic heart valveLong term (current) use of anticoagulants 8 Gallo Pitts. [address] [facility], [address], [place], [address], [place]. tel:[phone] Referring Provider: Hong Holder, [address] [facility] [address], [place], [address] . tel:[phone] [facility], [address], [place], [place], [address] , tel: [phone] [facility] Paroxysmal atrial fibrillationAg e-related osteoporosis without current pathological fractureBenign neoplasm of parathyroid gland Gallo Pitts. [address] , [address], [place], [address], . tel:[phone] Referring Provider: Hong Holder, [address] [facility] [address], [place], [address] . tel:[phone] [facility], [address], [place], [place], [address] , tel: [phone] [facility] Presence of prosthetic heart valveLong term (current) use of anticoagulants Gallo Pitts. [address] [facility], [address], [place], [address], [place]. tel:[phone] Referring Provider: Hong Holder, [address], [place], [address] . tel:[phone] [facility], [address], [place], [place], [address] , tel: [phone] [facility] Anemia, unspecifiedPre sence of prosthetic heart valveLong term (current) use of anticoagulants Diverticulitis 8 Gallo Pitts. [address] [facility] [facility] [address], [address], [address], [place]. tel:[phone] Referring Provider: Hong Holder, [address], [place], [address] . tel:[phone] [facility], [address], [place], [place], [address] , [place] tel: [phone] [place] [facility] Lower abdominal painDiarrhea, unspecified type 8 Gallo Pitts. [address], [address], [place], [place], [address], [place]. tel:[phone] [facility], [address], [place], [place], [address] , [place] tel: [phone] [place] Anemia, unspecifiedDiv erticulitis 8 Gallo Pitts. [address], [address], [place], [place], [address], [place]. tel:[phone] [facility], [address], [place], [place], [address] , [place] tel: [phone] [place] [facility] Diverticulitis 8 Gallo Pitts. [address] [facility] [address], [address], [place], [place], [address], [place]. tel:[phone] Referring Provider: oHng Holder, [address] [facility] [address], [place], [address] . tel:[phone] [facility], [address], [place], [place], [address] , [place] tel: [phone] [place] [place] [facility] Wedge compression fracture of unsp thor vertebra, sequelaDiverti culitis 8 Gallo Pitts. [address] [facility] [address], [address], [place], [place], [address], [place]. tel:[phone] Referring Provider: Hong Holder, [address] [facility] [address], [place], [address] . tel:[phone] [facility], [address], [place], [place], [address] , [place] tel: [phone] [facility] Chronic diastolic (congestive) heart failureUnspeci fied atrial flutterMorbid (severe) obesity due to excess caloriesWedge compression fracture of unsp thor vertebra, sequela Gallo Pitts. [address] , [address], [address], [place]. tel:[phone] Referring Provider: Hong Holder, [address] [facility] [address], [place], [address] . tel:[phone] [facility], [address], [place], [place], [address] , [place] tel: [phone] [facility] Presence of prosthetic heart valveLong term (current) use of anticoagulants Gallo Pitts. [address] , [address], [address], [place]. tel:[phone] Referring Provider: Hong Holder, [address] [facility] [address], [place], [address] . tel:[phone] [facility], [address], [place], [place], [address] , [place] tel: [phone] [facility] Vitamin B12 deficiencyPres ence of prosthetic heart valveLong term (current) use of anticoagulants Gallo Pitts. [address] , [address], [address], [place]. tel:[phone] Referring Provider: Hong Holder, [address] [facility] [address], [place], [address] . tel:[phone] [facility], [address], [place], [place], [address] , [place] tel: [phone] [facility] No Information Gallo Pitts. [address] , [address], [address], [place]. tel:[phone] [facility], [address], [place], [place], [address] , [place] tel: [phone] [place] [place] [facility] Vitamin B12 deficiency Aug-0 Gallo Pitts. [address], [address], [address], . tel:[phone] Referring Provider: Hong Holder, [address], [place], [address] . tel:[phone] [facility], [address], [place], [place], [address] , tel: [phone] [facility] [place] [facility] Presence of prosthetic heart valveLong term (current) use of anticoagulants Anemia, unspecified July- Gallo Pitts. [address], [address], [address], . tel:[phone] Referring Provider: Hong Holder, [address], [place], [address] . tel:[phone] [facility], [address], [place], [place], [address] , tel: [phone] [facility] Hypertensive heart disease with heart failureAnemia, unspecified Gallo Pitts. [address], [address], [address], [place]. tel:[phone] Referring Provider: Hong Holder, [address], [place], [address] . tel:[phone] [facility], [address], [place], [place], [address] , tel: [phone] [place] [place] [facility] Presence of prosthetic heart valveLong term (current) use of anticoagulants Gallo Pitts. [address], [address], [address], [place]. tel:[phone] Referring Provider: Hong Holder, [address], [place], [address] . tel:[phone] [facility], [address], [place], [place], [address] , tel: [phone] [facility] Presence of prosthetic heart valveLong term (current) use of anticoagulants 8 Gallo Pitts. [address] [facility], [address], [place], [place], [address], [place]. tel:[phone] Referring Provider: Hong Holder, [address] [facility] [address], [place], [address] . tel:[phone] [facility], [address], [place], [place], [address] , tel: [phone] [facility] Lumbar spondylosisSho rtness of breath 8 Gallo Pitts. [address] , [address], [place], [place], [address], [place]. [phone] Referring Provider: Hong Holder, [address], [place], [address] . tel:[phone] [facility], [address], [place], [place], [address] , [place] tel: [phone] [facility] Major depressive disorder, single episode, in partial remissionPrima ry hyperparathyro idismGastro-es ophageal reflux disease without esophagitisCer ebral atherosclerosi sHyperlipidemi a, unspecifiedArt eriosclerosis of [place] arteries of extremityType 2 diabetes mellitus with diabetic peripheral angiopathy without gangreneScreen ing for osteoporosisPa roxysmal atrial fibrillationLo ng term (current) use of anticoagulants Presence of prosthetic heart valvePost-halima pausal 0 8 Gallo Pitts. [address], [address], [place], [place], [address], [place]. [phone] Referring Provider: Hong Holder, [address], [place], [address] . tel:[phone] [facility], [address], [place], [place], [address] , tel: [phone] [facility] Presence of prosthetic heart valveLong term (current) use of anticoagulants Jun-2 8 Gallo Pitts. [address] [facility] [address], [address], [place], [address], . tel:[phone] Referring Provider: Hong Holder, [address] [facility] [address], [place], [address] . tel:[phone] [facility], [address], [place], [place], [address] , tel: [phone] [place] [facility] Hypertensive heart disease with heart failure Jun-2 8 Gallo Pitts. [address] [facility] [address], [address], [place], [address], [place]. tel:[phone] Referring Provider: Hong Holder, [address] [facility] [address], [place], [address] . 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 [address] [facility] [address], [address], [address], [place]. tel:[phone] Referring Provider: Hong Holder, [address] [facility] [address], [place], [address] . tel:[phone] [facility], [address], [place], [place], [address] , tel: [phone] [place] [place] [facility] Type 2 diabetes mellitus with diabetic polyneuropathy Body mass index (BMI) 40.0-44.9, adult Mar-0 2- 8 Micha Jaylyn. [address], [address]. tel:[phone] Referring Provider: Hong Holder, [address], [place], [address] . tel:[phone] [facility], [address], [place], [place], [address] , [place] tel: [phone] [facility] Encntr screen mammogram for malignant neoplasm of breast 8 Gallo Pitts. [address], [address], [place], [place], [address], [place]. tel:[phone] [facility], [address], [place], [place], [address] , tel: [phone] [place] [place] [facility] Low back pain 8 Gallo Pitts. [address], [address], [place], [place], [address], [place]. tel:[phone] [facility], [address], [place], [place], [address] , tel: [phone] [place] [place] [facility] Presence of prosthetic heart valveLong term (current) use of anticoagulants Gallo Pitts. [address] , [address], [place], [place], [address], [place]. tel:[phone] Referring Provider: Hong Holder, [address], [place], [address] . tel:[phone] [facility], [address], [place], [place], [address] , tel: [phone] [facility] senior living (current) use of anticoagulants Presence of prosthetic heart valve 8 Gallo Pitts. [address] , [address], [place], [place], [address], [place]. tel:[phone] Referring Provider: Hong Holder, [address] [facility] [address], [place], [address] . tel:[phone] [facility], [address], [place], [place], [address] , [place] tel: [phone] [facility] Osteoporosis, unspecified osteoporosis type, unspecified pathological fracture presence 8 Demetrius Schilling. [address], [address], [place], [place], [address]. tel:[phone] [facility], [address], [place], [place], [address] , tel: [phone] [facility] Low back painAtheroscle rosis of aortaPolymyalg ia rheumaticaHear t failure, unspecifiedTyp e 2 diabetes mellitus with diabetic polyneuropathy Morbid (severe) obesity due to excess calories Gallo Pitts. [address] , [address], [place], [place], [address], [place]. tel:[phone] Referring Provider: Hong Holder, [address] [facility] [address], [place], [address] . tel:[phone] [facility], [address], [place], [place], [address] , tel: [phone] [facility] senior living (current) use of anticoagulants Presence of prosthetic heart valve Gallo Pitts. [address] [facility] [address], [address], [place], [place], [address], [place]. tel:[phone] Referring Provider: Hong Holder, [address] [facility] [address], [place], [address] . tel:[phone] [facility] [address], [place], [place], [address] , tel: [phone] [facility] Presence of prosthetic heart valveLong term (current) use of anticoagulants Gallo Pitts. [address], [address], [place], [place], [address], [place]. tel:[phone] Referring Provider: Hong Holder, [address] [facility] [address], [place], [address] . tel:[phone] [facility] [address], [place], [place], [address] , tel: [phone] [facility] Strain of lumbar region, subsequent encounter Gallo Pitts. [address], [address], [address], . tel:[phone] Referring Provider: Hong Holder, [address], [place], [address] . tel:[phone] [facility] [address], [place], [place], [address] , tel: [phone] 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 [address], [address], [place], [address], [place]. tel:[phone] Referring Provider: Hong Holder, [address], [place], [address] . tel:[phone] [facility] [address], [place], [place], [address] , tel: [phone] 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 [address], [address], [address], [place]. tel:[phone] Referring Provider: Hong Holder, [address], [place], [address] . tel:[phone] [facility] [address], [place], [place], [address] , tel: [phone] [place] [facility] Polymyalgia rheumaticaHear t failure, unspecifiedArt eriosclerosis of [place] arteries of extremityType 2 diabetes mellitus with diabetic peripheral angiopathy without gangreneAthero sclerosis of aortaMorbid (severe) obesity due to excess caloriesEncntr screen mammogram for malignant neoplasm of breastLong term (current) use of anticoagulants Presence of prosthetic heart valveHyperlipi demia, unspecifiedCer ebral atherosclerosi sGastro-esopha geal reflux disease without esophagitis Gallo Pitts. [address], [address], [address], [place]. tel:[phone] Referring Provider: Hong Holder [address], [address] . tel:[phone] [facility], [address], [place], [place], [address] , tel: [phone] [facility] Knee pain, unspecified chronicity, unspecified laterality 7 Gallo Pitts. [address], [address], [address], [place]. tel:[phone] [facility], [address], [place], [place], [address] , [place] tel: [phone] [facility] senior living (current) use of anticoagulants Presence of prosthetic heart valve Gallo Pitts. [address], [address], [address], [place]. tel:[phone] Referring Provider: Hong Holder, [address], [address] . tel:[phone] [facility], [address], [place], [place], [address] , [place] tel: [phone] [place] [facility] Iron deficiency anemia, unspecified iron deficiency anemia type Gallo Pitts. [address], [address], [address], [place]. 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 [address], [address], [address], [place]. tel:[phone] Referring Provider: Hong Holder, [address], [address] . tel:[phone] [facility], [address], [place], [place], [address] , [place] tel: [phone] [facility] Iron deficiency anemia, unspecified iron deficiency anemia type Aug- Gallo Pitts. [address], [address], [place], [place], [address], [place]. tel:[phone] [employer], [address], [place], [place], [address] , tel: [phone] [place] [place] [facility] Anemia, unspecified Gallo Pitts. [address], [address], [place], [place], [address], [place]. tel:[phone] Referring Provider: Hong Holder, [address], [place], [address] . tel:[phone] [employer], [address], [place], [place], [address] , [place] tel: [phone] [place] [facility] Presence of prosthetic heart valveLong term current use of anticoagulant therapyAnemia, unspecified Gallo Pitts. [address], [address], [place], [place], [address], [place]. tel:[phone] [employer], [address], [place], [place], [address] , tel: [phone] [facility] Type 2 diabetes mellitus with polyneuropathy Demetrius Schilling. [address], [address], [place], [place], [address]. tel:[phone] [employer], [address], [place], [place], [address] , [place] tel: [phone] [facility] Shortness of breathPolymyal carmen rheumaticaPres ence of prosthetic heart valvePrimary hyperparathyro idismMajor depressive disorder, single episode, in partial remission Gallo Pitts. [address], [address], [place], [place], [address], [place]. tel:[phone] Referring Provider: Hong Holder, [address], [place], [address] . tel:[phone] [facility], [address], [place], [place], [address] , tel: [phone] [facility] Dizziness and giddinessPolym yalgia rheumatica Gallo Pitts. [address], [address], [address], . tel:[phone] Referring Provider: Hong Holder, [address], [place], [address] . tel:[phone] [facility], [address], [place], [place], [address] , tel: [phone] [facility] MyalgiaBilater al shoulder pain, unspecified chronicity Gallo Pitts. [address] , [address], [place], [address], . tel:[phone] Referring Provider: Hong Holder, [address], [address] . tel:[phone] [facility], [address], [place], [place], [address] , tel: [phone] [facility] H/O mechanical aortic valve replacementLon g term current use of anticoagulant therapy Gallo Pitts. [address] , [address], [address], [place]. tel:[phone] Referring Provider: Hong Holder, [address], [place], [address] . tel:[phone] [facility], [address], [place], [place], [address] , tel: [phone] [facility] H/O mechanical aortic valve replacementLon g term current use of anticoagulant therapy Gallo Pitts. [address], [address], [address], [place]. tel:[phone] Referring Provider: Hong Holder, [address], [place], [address] . tel:[phone] [facility] [address], [place], [place], [address] , tel: [phone] [place] [facility] Bilateral arm painBilateral shoulder pain, unspecified chronicity Jun-2 4-201 7 Gallo Pitts. [address], [address], [address], [place]. [phone] Referring Provider: Hong Holder, [address], [place], [address] . tel:[phone] [facility] [address], [place], [place], [address] , tel: [phone] [place] [facility] Bilateral leg cramps Jun-2 0- 7 Gallo Pitts. [address], [address], [address], [place]. tel:[phone] Referring Provider: Hong Holder, [address], [address] . tel:[phone] [facility] [address], [place], [place], [address] , tel: [phone] [place] [facility] H/O mechanical aortic valve replacementLon g term current use of anticoagulant therapy May-3 0-201 7 Gallo Pitts. [address], [address], [address], [place]. [phone] Referring Provider: Hong Holder, [address], [place], [address] . tel:[phone] [facility] [address], [place], [place], [address] , tel: [phone] [place] [facility] H/O mechanical aortic valve replacementLon g term current use of anticoagulant therapy May-2 3-201 7 Gallo Pitts. [address], [address], [place], [place], [address], [place]. [phone] Referring Provider: Hong Holder, [address], [place], [address] . tel:[phone] [facility], [address], [place], [place], [address] , tel: [phone] [place] [facility] H/O mechanical aortic valve replacementLon g term current use of anticoagulant therapy 7 Gallo Pitts. [address], [address], [place], [place], [address], [place]. tel:[phone] Referring Provider: Hong Holder, [address], [place], [address] . tel:[phone] [facility], [address], [place], [place], [address] , [place] tel: [phone] [place] [place] [facility] Neck painH/O mechanical aortic valve replacement 7 Gallo Pitts. [address], [address], [place], [place], [address], [place]. tel:[phone] [facility], [address], [place], [place], [address] , [place] tel: [phone] [facility] [place] [facility] Acute non-recurrent sinusitis, unspecified location 7 Gallo Pitts. [address], [address], [place], [place], [address], [place]. tel:[phone] Referring Provider: Hong Holder, [address], [place], [address] . tel:[phone] [facility], [address], [place], [place], [address] , [place] tel: [phone] [place] [facility] H/O mechanical aortic valve replacementLon g term current use of anticoagulant therapy 0 7 Gallo Pitts. [address], [address], [address], [place]. [phone] Referring Provider: Hong Holder, [address], [place], [address] . tel:[phone] [employer], [address], [place], [place], [address] , tel: [phone] [facility] [place] [facility] Type 2 diabetes mellitus with polyneuropathy Hammer toe of left footAcute bilateral low back pain without sciatica 7 Gallo Pitts. [address], [address], [place], [place], [address], [place]. tel:[phone] Referring Provider: Hong Holder, [address], [place], [address] . tel:[phone] [employer], [address], [place], [place], [address] , tel: [phone] [facility] [place] [facility] Obstructive sleep apnea 0 6 Gallo Pitts. [address], [address], [place], [place], [address], [place]. tel:[phone] [employer], [address], [place], [place], [address] , tel: [phone] [place] [facility] Major depressive disorder, single episode, in partial remissionH/O mechanical aortic valve replacementTyp e 2 diabetes mellitus with polyneuropathy 6 Gallo Pitts. [address], [address], [place], [place], [address], [place]. tel:[phone] Referring Provider: Hong Holder, [address], [place], [address] . tel:[phone] [employer], [address], [place], [place], [address] , tel: [phone] [place] [facility] Complicated griefDisappear ance and of family memberMajor depressive disorder, single episode, in partial remission 2-201 6 Gallo Pitts. [address], [address], [place], [place], [address], [place]. tel:[phone] [employer], [address], [place], [place], [address] , [place] tel: [phone] [facility] No Information 6 Gallo Pitts. [address] [facility] [address], [place], [place], [address], [place]. tel:[phone] Referring Provider: Maria T Ramon, [address], [place], [address] . tel:[phone] [employer], [address], [place], [place], [address] , [place] tel: [phone] [facility] Complicated griefDisappear ance and of family memberNeck pain 6 Gallo Pitts. [address], [place], [place], [address], [place]. tel:[phone] Referring Provider: Hong Holder, [address] [facility] [address], [place], [address] . tel:[phone] [employer], [address], [place], [place], [address] , [place] tel: [phone] [facility] Atherosclerosi s of aorta 6 Gallo Pitts. [address], [place], [place], [address], [place]. tel:[phone] Referring Provider: Hong Holder, [address], [place], [address] . tel:[phone] [employer], [address], [place], [place], [address] , [place] tel: [phone] [facility] Tear of right rotator cuff, unspecified tear extent 6 Gallo Pitts. [address], [place], [place], [address], [place]. tel:[phone] [employer], [address], [place], [place], [address] , tel: [phone] [facility] Type 2 diabetes mellitus with polyneuropathy Chronic right shoulder pain 3 6 Gallo Pitts. [address] , [address], [place], [place], [address], . tel:[phone] Referring Provider: Hong Holder, [address], [place], [address] . tel:[phone] [facility], [address], [place], [place], [address] , tel: [phone] [facility] H/O mechanical aortic valve replacementLon g term current use of anticoagulant therapy 0 6 Gallo Pitts. [address], [address], [place], [address], . tel:[phone] Referring Provider: Hong Holder, [address], [place], [address] . tel:[phone] [facility], [address], [place], [place], [address] , tel: [phone] [facility] H/O mechanical aortic valve replacementLon g term current use of anticoagulant therapy 6 Gallo Pitts. [address] , [address], [place], [place], [address], . tel:[phone] Referring Provider: Hong Holder, [address], [place], [address] . tel:[phone] [facility], [address], [place], [place], [address] , tel: [phone] [facility] Dyspnea on effort 6 Gallo Pitts. [address], [address], . tel:[phone] [facility], [address], [place], [place], [address] , tel: [phone] [facility] H/O mechanical aortic valve replacementLon g term current use of anticoagulant therapy 3 6 Gallo Pitts. [address], [place], [place], [address], [place]. [phone] Referring Provider: Hong Holder, [address], [place], [address] . tel:[phone] [facility], [address], [place], [place], [address] , [place] tel: [phone] [facility] Neck painBilateral shoulder pain, unspecified chronicityPain in left shoulder 6 Gallo Pitts. [address], [place], [place], [address], [place]. tel:[phone] [facility], [address], [place], [place], [address] , [place] tel: [phone] [facility] H/O mechanical aortic valve replacementLon g term current use of anticoagulant therapy 6 Gallo Pitts. [address], [address], [place]. tel:[phone] Referring Provider: Hong Holder, [address], [place], [address] . tel:[phone] [facility], [address], [place], [place], [address] , [place] tel: [phone] [facility] H/O mechanical aortic valve replacementLon g term current use of anticoagulant therapy 6 Gallo Pitts. [address], [address], [place]. tel:[phone] Referring Provider: Hong Holder, [address], [place], [address] . tel:[phone] [facility], [address], [place], [place], [address] , [place] tel: [phone] [facility] H/O mechanical aortic valve replacementLon g term current use of anticoagulant therapy 6 Gallo Pitts. [address], [place], [place], [address], [place]. tel:[phone] Referring Provider: Hong Holder, [address], [place], [address] . tel:[phone] [facility], [address], [place], [place], [address] , tel: [phone] [facility] Encounter for immunizationNe ck painH/O mechanical aortic valve replacementChr onic kidney disease, stage 1 6 Gallo Pitts. [address], [place], [place], [address], [place]. tel:[phone] Referring Provider: Hong Holder, [address], [place], [address] . tel:[phone] [facility], [address], [place], [place], [address] , [place] tel: [phone] [facility] Chest pain, unspecified 6 Gallo Pitts. [address], [place], [place], [address], [place]. tel:[phone] [facility], [address], [place], [place], [address] , tel: [phone] [facility] H/O mechanical aortic valve replacementLon g term current use of anticoagulant therapy 6 Gallo Pitts. [address], [place], [place], [address], [place]. tel:[phone] [facility], [address], [place], [place], [address] , [place] tel: [phone] [facility] Chronic kidney disease, stage 1Type 2 diabetes mellitus with polyneuropathy Nonintractable headache, unspecified chronicity pattern, unspecified headache type 6 Gallo Pitts. [address], [place], [place], [address], [place]. [phone] Referring Provider: Hong Holder, [address], [place], [address] . tel:[phone] [facility], [address], [place], [place], [address] , tel: [phone] [facility] H/O mechanical aortic valve replacement 6 Gallo Pitts. [address], [place], [place], [address], [place]. tel:[phone] Referring Provider: Hong Holder, [address], [place], [address] . tel:[phone] [facility], [address], [place], [place], [address] , tel: [phone] [facility] Morbid obesity, unspecified obesity typeType 2 diabetes mellitus with stage 1 chronic kidney diseaseChronic kidney disease, stage 1Type 2 diabetes mellitus with polyneuropathy H/O mechanical aortic valve replacementMaj or depressive disorder, single episode, in partial remissionGERD without esophagitisPri valentina osteoarthritis involving multiple joints 6 Gallo Pitts. [address], [address], [place]. tel:[phone] Referring Provider: Hong Holder, [address], [place], [address] . tel:[phone] [facility], [address], [place], [place], [address] , tel: [phone] [facility] Aortic valve replaced 6 Gallo Pitts. [address], [address], [place]. tel:[phone] Referring Provider: Hong Holder, [address], [place], [address] . tel:[phone] [facility], [address], [place], [place], [address] , tel: [phone] [facility] Aortic valve replaced 6 Gallo Pitts. [address], [place], [place], [address], [place]. [phone] Referring Provider: Hong Holder, [address], [place], [address] . tel:[phone] Family History Family Member Type Diagnosis Age [...] type Covered alliance party ID Authoriza tion(s) [employer] HEALTHPLAN MB [id number] [employer] HEALTHAcheive CCA MB [id number] [employer] HE[employer]che[employer] CCA MB [id number] pinion-pinsPLAN MB [id number] pinion-pinsPLAN MB [id number] [employer] MB [id number] [employer] MB [id number] [employer] MB [id number] Social History Type Description Quantity Date Captured [...] 09/08/2019 ordered Referral Referred To: Home Care [id number] Ordered: Referrals: Home Care. Location: [facility]. Evaluation/diagnostic/treatment - Level 3 ordered Referral Referred To: [address]
[facility] [address] [place], [phone] Ordered: MRI brain wo contrast ordered Referral Referred To: Service CPAP equipment Ordered: Referrals: Service CPAP equipment ordered Referral Referred To: Maurice Paredes [address] [facility] [address] [place], [place], [phone] Ordered: Referrals: Cardiology. Maurice Pareeds. Evaluation/diagnostic/treatment - Level 3 ordered Referral Referred To: [facility] [place] [address] [place], [phone] Ordered: Modified barium swallow ordered History Of [...] intake. Hospital F/U Patient was seen at [facility] due to irregular heartbeat Patient [...] Follow Up Patient was t reated at [facility] for atrial fibrillation with RVR and was discharged on December. She saw a drink box mechanic in the hospital. She is having progressive memory problems. This has come to the attention of her drink box mechanic. She is managing her own affairs. She [...] follow up Here for a 3 m [facility] follow up. Patient states her shoulders have [...] patient also c/o pain in the right protestant. she denies jaw claudication. 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 labs. 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 labs. Make sure you are drinking [...] vascular claudication symptoms. 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 Related to Atrial fibrillation, unspecified type I [...] sister would serve as your power of sports attorney for nam care decisions. You NEED [...] headache, unspecified chronicity pattern, unspecified headache type Disease process Disease process Disease process Dietary management e ducation, guidance, and counseling Related to Body mass index (BMI) 31.0-31.9, adult We will monitor blood calcium le jaqueline. [...] with atorvastatin. 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 Related t [...] unspecified Disease process Disease process Disease process Dietary management e ducation, guidance, and counseling Related to Body mass index (BMI) 32.0-32.9, adult Disease process Assessments Type Assessment Date No Information Patient Care Teams Name Effective Dates (start - stop) Status Members No Information
--- OUTSIDE RECORDS SUMMARY | 2024-06-15 14:50 | XMS_ITS | Encounter Summary ---
Author Organization [facility] Address [facility] [place] [address] Care Team Providers Care Outboard Motorboat Rigger Name Role Phone Dianne Johnson RN Unavailable [phone] Sanjeev Webster DO Primary Care Provider + Encounter Details Date Type Department Care Team (Late st Contact Info) Description 07/16/2021 Therapy Plan [facility] Diabetes [place] [id number] [facility] [place] [address] [place] [address] [place] [address] Social History Tobacco Use Types Packs/Day Years [...] Sex Assigned at Female 05/03/2024 10:53 AM MACHINE OPERATOR PACKAGING Legal Sex Female 11:18 AM CDT Gender Identity Female 05/03/2024 10:53 AM MACHINE OPERATOR PACKAGING Sexual Orientation Not on file COVID-19 Exposure Response Date Recorded In the last 10 days, have yo u been in contact with someone who was confirmed or suspected to have Coronavirus/COVID-19? No / Unsure 07/15/2021 11:32 AM CDT documented as of this encounter Plan of Treatment Upcoming Encounters Date Type Department Care Team (Late st Contact Info) Description 07/04/2024 3:20 PM CDT Office Visit [facility] Family & Internal Medicine - [place] [address] [place] [address] Sanjeev Webster, [address] [place] [address] documented as of this encounter Goals Goal Patient Goal Type Associated Problems Recent Progress Patient-Stated? Author Health - patient able to perform ADLs independently General On track(2024 2:11 PM CDT) Dianne Corona RN Note: 12/17/23: Patient stated she is independent with ASL's. Establish Plan for Symptom Monitoring-CHF General On track(2024 4:52 PM CDT) Dianne Corona, RN Note: Patient will [...] Plan for Symptom Monitoring-COPD General On track(2024 4:52 PM CDT) Dianne Corona, RN Note: Patient will [...] Plan for Symptom Monitoring-DM General On track(2024 2:11 PM CDT) Dianne Corona RN Note: Patient will [...] Plan for Symptom Monitoring-HTN General On track(2024 2:11 PM CDT) Dianne Corona, RN Note: Patient will [...] Rule Out 01/13/2022 01/13/2022 01/13/2022 12:48 PM MACHINE OPERATOR PACKAGING COVID-19 Rule Out 01/13/2022 01/13/2022 01/14/2022 12:15 AM MACHINE OPERATOR PACKAGING COVID-19 Rule Out 03/18/2022 03/18/2022 03/18/2022 12:27 PM MACHINE OPERATOR PACKAGING COVID-19 Rule Out 03/18/2022 03/18/2022 03/18/2022 12:57 PM MACHINE OPERATOR PACKAGING COVID-19 Rule Out 03/18/2022 03/18/202203/1903/19/2022 1:58 PM MACHINE OPERATOR PACKAGING COVID-19 Rule Out 08/26/2022 08/26/2022 08/26/2022 4:56 PM CDT COVID-19 Rule Out 01/08/2024 01/08/2024 01/08/2024 1:05 PM CDT Assessment Noted Time PHQ-9 Depression Total Score: 0 05/25/19 9:23 AM CDT documented as of this encounter Care Teams Outboard Motorboat Rigger Relationship Specialty Start Date End Date Sanjeev Webster DO [address] [place] [id number] PCP - General FAMILY PRACTICE 09/25/20 Dianne Johnson, RN [address] [place] [address] Director [place] (Ambulatory) REGISTERED NURSE 08/14/20 documented as of this encounter
--- OUTSIDE RECORDS SUMMARY | 2024-06-15 14:50 | XMS_ITS | Encounter Summary ---
Author Organization [facility] Address [address] [place] [address] Care Team Providers Care Net Programmer Name Role Phone Casey Johnson RN Unavailable [phone] Sanjeev Webster DO Primary Care Provider + Reason for Visit * Reason Onset Date Comments Care Management 06/15/2024 Encounter Details Date Type Department Care Team (Late st Contact Info) Description 06/15/2024 Patient Outreach [facility] Family & Internal Medicine [address] [id number] Casey Johnson, RN [address] [place], [place] [id number] Care Management Social History Tobacco Use Types [...] Recorded Patient Health Questionnaire-2 Score 0 05/03/2024 [facility] [...] Sex Assigned at Female 05/03/2024 10:53 AM ELECTRICAL SIGN SERVICER Legal Sex Female 11:18 AM CDT Gender Identity Female 05/03/2024 10:53 AM ELECTRICAL SIGN SERVICER Sexual Orientation Not on file documented as [...] Progress Notes * Casey Johnson RN - 06/15/2024 11:31 AM CDT Chronic Care Management: Patient Status: Contacted patient today. Stated she is not feeling well. She's been vomiting x 2 days now and can'tkeep anything down. Stated her DIL; Izzy is taking her to the ER. Patient left a message with her son and Izzy will call him at 11:45 AM. Patient scheduled to see tomorrow. Offered to reschedule appointment. Patient is agreeable stating she will probably be admitted to [place]. Patient wondering if the Fosamax making her have N & V. Stating she gets sick after she takes it once a week. 06/15/24: Contacted Flakita at 's office. Appointment reschedule for 07/14/24 at 10:45 am. Notified Izzy and she is requesting a later time around 3:15 PM. Called Flakita back and she stated she cain a later appointment but it won't be until the end of July. Asked Flakita if will be okay with her waiting until the end of July. Flakita will send a message and call CC back. 06/15/24: Called Izzy back and she stated to keep appointment on 07/14/24 at 10:45 am and she will havesomeone take patient. Izzy stated she spoke to patient and requested patient contact her sister to take her to the ER. Izzy is wondering if the baclofen is causing patient to have N & V. 06/15/24: Called Flakita back and she will keep appointment scheduled for 07/14/24 at 10:45 am. 06/15/24: Contacted patient back and she stated her sister is taking her to [place] ER. Patient stated she really appreciates CC calling and always following up with her. Plan of Care: flight operations coordinator will continue to follow up by phone, provide resources when needed, educate on disease management, and assess chronic conditions. Upcoming Visit Appointments: Future Appointments Date Time Provider Department Center 07/04/2024 3:20 PM Sanjeev Webster DO [id number] [facility] Quality care gaps: Health Maintenance Topic Date Due Annual Medicare Wellness Visit Never done Diabetes: Retinopathy Eye Exam 04/21/2024 Zoster Vaccines (3 of 3) 02/28/2025 (Originally 01/06/2023) RSV Immunization or 60+ Years (1 - 1-dose 75+ series) 02/28/2025 (Originally 05/23/2019) COVID-19 Vaccine ( - 2023- season) 2112 (Originally 11/08/2023) Lipid Panel 08/13/2024 Kidney Health Evaluation 08/13/2024 Hemoglobin A1C 08/29/2024 DTaP, Tdap and Td Vaccines (4 - Td or Tdap) 09/05/2030 Dexa Scan (General) Completed Pneumococcal Vaccine: 65+ Years Completed PHQ-2 (Physician [place]) Completed Meningococcal Vaccine Aged Out Meningococcal B Vaccine Aged Out RSV Immunizations Under 20 Months Aged Out Problem List: Patient Active Problem List Diagnosis Abnormal stress test Chronic anticoagulation Coronary artery disease involving [place] coronary artery of [place] heart without angina pectoris H/O mechanical aortic valve replacement Hypertensive heart disease with congestive heart failure ([facility]) LBBB (left bundle branch block) Myopathy VAZQUEZ (obstructive sleep apnea) Paroxysmal atrial flutter ([facility]) Benign hypertension with CKD (chronic kidney disease) stage III ([facility]) Memory deficits Hearing deficit, bilateral History of cataract extraction, unspecified laterality Vitamin D deficiency Hypercalcemia Chronic frontal sinusitis Constipation, unspecified constipation type Chronic bilateral low back pain without sciatica Iron deficiency anemia, unspecified iron deficiency anemia type Disorder of skin of trunk Anemia Body mass index (BMI) 31.0-31.9, adult 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[facility]) Benign hypertension with stage 3b chronic kidney disease ([facility]) Cobalamin deficiency Compression fracture of thoracic vertebra ([facility] HHS/HCC) Depression Diabetic polyneuropathy ([facility]) Disorder of rotator cuff Diverticular disease Dysphagia Elevated troponin Gastroesophageal reflux disease without esophagitis Hyperlipidemia, unspecified hyperlipidemia type Vascular dementia ([facility] Unknown and unspecified causes of morbidity Syncope, unspecified syncope type Wrist joint pain Requires lifelong warfarin therapy Hyperparathyroidism ([facility]) Presence of prosthetic heart valve Plantar fascial fibromatosis Peripheral neuropathy Parathyroid adenoma Polymyalgia rheumatica ([facility]) Osteoporosis Numbness Muscle cramps Closed stable burst fracture of sixth thoracic vertebra, initial encounter ([facility]) Chest pain Contusion of scalp Knee pain Localized, primary osteoarthritis Osteoarthritis of knee Traumatic closed displaced fracture of distal end of radius Shoulder joint pain Hyperlipidemia associated with type 2 diabetes mellitus ([facility]) Hematoma Anxiety Diastolic heart failure ([facility]) Internal hemorrhoids Leukoencephalopathy Major depression single episode, in partial remission Metacarpal bone fracture Mitral valve disorder 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 Vision loss COPD (chronic obstructive pulmonary disease) ([facility]) Diarrhea Drug-induced constipation H/O mechanical aortic valve replacement Age-related osteoporosis with current pathological fracture Care Management Physical deconditioning Chronic heart failure with preserved ejection fraction (HFpEF) ([facility]) Paroxysmal atrial fibrillation ([facility]) Hypertension associated with type 2 diabetes mellitus ([facility]) Encounter for prophylactic measures, unspecified Graves' disease Cirrhosis of liver without ascites, unspecified hepatic cirrhosis type ([facility]) Stage 3b chronic kidney disease ([facility] OLIVE (acute kidney injury) Heart failure with mildly reduced ejection fraction (HFmrEF) ([facility]) Hyperthyroidism Medications: Current Outpatient Medications Medication Sig [...] mg total) by mouth every 7 days. 12 tablet 0 ALPRAZolam (XANAX) 0.5 MG tablet TAKE 1/2 (ONE-HALF) TABLET BY MOUTH NIGHTLY NEEDED FOR SLEEP 30tablet 0 B Complex Cap capsule Take 1 capsule by mouth daily. baclofen (LIORESAL) 10 MG tablet Take 1 tablet (10 mg total) by mouth 3 (three) times daily for 7 days. 21 tablet 0 Blood Glucose Monitoring Suppl (ONE [...] once daily until resolves 30 tablet 0 doxycycline hyclate (VIBRAMYCIN) 100 MG capsule [...] a week. simvastatin (ZOCOR) 10 MG tablet TAKE 1 TABLET BY MOUTH NIGHTLY AT BEDTIME 90 tablet 0 sotalol (BETAPACE) 80 MG tablet Take 0.5 tablets (40 mg total) by mouth 2 (two) times daily. tiZANidine (ZANAFLEX) 4 MG tablet Take 1 tablet (4 mg total) by mouth every 6 (six) hours as needed. 30 tablet 0 venlafaxine XR (EFFEXOR-XR) 150 MG [...] tablet (1 mg total) by mouth daily. Take 7 mg M-R, then take6 mg F-Sun 90 tablet 0 warfarin (COUMADIN) 2 MG tablet Take 1 tablet (2 mg total) by mouth daily. (Patient not taking: Reported on 05/30/2024) 30 tablet 1 warfarin (COUMADIN) 5 MG tablet Take 1 tablet by mouth once daily (Patient not taking: Reported on 05/30/2024) 30 tablet 0 warfarin (COUMADIN) 6 MG tablet Take 1 tablet by mouth once daily 90 tablet 0 No current facility-administered medications for this visit. CASEY JOHNSON RN * Sanjeev Webster DO - 06/15/2024 11:31 AM CDT Noted. documented in this encounter Plan of Treatment Upcoming Encounters Date Type Department Care Team (Late st Contact Info) Description 07/04/2024 3:20 PM CDT Office Visit [facility] Family & Internal Medicine - [address] [phone] Sanjeev Webster DO [address] [place] [id number] documented as of this encounter Goals Goal Patient Goal Type Associated Problems Recent Progress Patient-Stated? Author Health - patient able to perform ADLs independently General On track(2024 2:11 PM CDT) Casey Corona RN Note: 12/17/23: Patient stated she is independent with ASL's. Establish Plan for Symptom Monitoring-CHF General On track(2024 4:52 PM CDT) Casey Corona RN Note: Patient will recognize [...] Monitoring-COPD General On track(2024 4:52 PM CDT) Casey Corona RN Note: Patient will recognize [...] Monitoring-DM General On track(2024 2:11 PM CDT) Casey Corona RN Note: Patient will manage [...] Monitoring-HTN General On track(2024 2:11 PM CDT) Casey Corona RN Note: Patient will monitor B/P several times per week , record readings and report to physician or CC if B/P consistently >130/80 Take your medications as prescribed. Follow up with your provider as scheduled. Take your blood pressure at least several times a week if able. Establish Plan for Symptom Monitoring-paroxy smal atrial fib Lifestyle On track(2024 2:11 PM CDT) Casey Corona RN Note: Atrial Fib: Patient will recognize symptoms of atrial fibrillation and report to physician should they occur. Establish regular follow ups with Family Coach, take medications exactly as directed without skipping doses. documented as of this encounter Visit Diagnoses Not on filedocumented in this encounter Additional Health Concerns Assessment Noted Time PHQ-9 Depression Total Score: 13 023 3:56 PM CDT documented as of this encounter Care Teams Net Programmer Relationship Specialty Start Date End Date Sanjeev Webster DO [address] [place] [id number] PCP - General FAMILY PRACTICE 09/25/20 Casey Johnson RN [address] [place] [address] Make Up Artist (Ambulatory) REGISTERED NURSE 08/14/20 documented as of this encounter
--- OUTSIDE RECORDS SUMMARY | 2024-06-15 14:50 | XMS_ITS | CONTINUITY OF CARE DOCUMENT ---
Author Name gaetano salter Address Unknown Organization [facility] Address [address] [place] [address] [address] [place] [address] Phone [phone] Care Team Providers Care Director Pharmacovigilance Name Role Phone Wendy Dey MD Unavailable [phone] Wendy Dey MD Unavailable [phone] INSURANCE PROVIDERS Payer name Policy type / Coverage type [place] [id number] Other [id number]
--- OUTSIDE RECORDS SUMMARY | 2024-06-15 14:50 | XMS_ITS | Clinical Summary ---
Author Organization [facility] Address [address] [place] [address] Care Team Providers Care Headwaiter/Headwaitress Name Role Phone Dianne Johnson RN Unavailable [phone] Suleman Montez DO Primary Care Provider + [...] :Chronic obstructive pulmonary disease, unspecified COPD type ([facility]) INHALE 2 PUFFS BY MOUTH EVERY 6 HOURS NEEDED FOR WHEEZING 18 g 5 023 Active Blood Glucose Monitoring Suppl (ONE TOUCH ULTRA 2) w/Device KitIndications:Typ e 2 diabetes mellitus with stage 3b chronic kidney disease, without long-term current use of insulin ([facility]) 1 Device by Does not apply route daily. 1 kit 023 Active Lancets (ONETOUCH ULTRASOFT) lancetsIndications :Type 2 diabetes mellitus with stage 3b chronic kidney disease, without long-term current use of insulin ([facility]) 1 each by Other route as needed. Use as instructed 100 each 3 023 Active Glucose Blood (BLOOD GLUCOSE TEST STRIPS) StripIndications:T ype 2 diabetes mellitus with stage 3b chronic kidney disease, without long-term current use of insulin ([facility]) 1 Device by Does not apply route daily. 100 strip 3 023 Active methIMAzole (TAPAZOLE) 5 MG tablet Take 1 tablet (5 mg total) by mouth daily. 024 Active warfarin (COUMADIN) 2 MG tabletIndications: Chronic anticoagulation Take 1 tablet (2 mg total) by mouth daily. 30 tablet 1 Active Additional Information Patient not taking.Reported on 05/30/2024 cinacalcet (SENSIPAR) 30 MG tablet Take 0.5 [...] into the skin once a week. Active B Complex Cap capsule Take 1 capsule by mouth daily. Active potassium chloride CR (K-TAB) 10 MEQ Tab CR tabletIndications: Hypokalemia Take 1 tablet by mouth once daily 90 tablet 1 024 Active metoprolol succinate ER (TOPROL-XL) 25 MG 24 hr tabletIndications: Atrial fibrillation with RVR ([facility] HHS/HCC) Take 1 tablet (25 mg total) by mouth daily. 90 tablet 024 Active WALKER MISC, DME,Indications:Ac [place] gout of right foot, unspecified cause 1 Device by Does not apply route as needed. 1 Device 024 2024 Active gabapentin (NEURONTIN) 300 MG capsuleIndications :Chronic low back pain, unspecified back pain laterality, unspecified whether sciatica present TAKE 1 CAPSULE BY MOUTH THREE TIMES DAILY 270 capsule 024 Active warfarin (COUMADIN) 5 MG tabletIndications: senior living (current) use of anticoagulants,H/O mechanical aortic valve replacement Take 1 tablet by mouth once daily 30 tablet 024 Active Additional Information Patient not taking.Reported on 05/30/2024 colchicine 0.6 MG tabletIndications: Acute gout of [...] disease with congestive heart failure ([facility] HHS/HCC) Take 1 tablet by mouth once daily 30 tablet 1 025 Active omeprazole (PRILOSEC) 40 MG capsuleIndications :GERD (gastroesophageal reflux disease) Take 1 capsule by mouth once daily 90 capsule 025 Active simvastatin (ZOCOR) 10 MG tabletIndications: Hyperlipidemia associated with type 2 diabetes mellitus ([facility] HHS/HCC) TAKE 1 TABLET BY MOUTH NIGHTLY AT BEDTIME 90 tablet 025 Active warfarin (COUMADIN) 6 MG tabletIndications: Chronic anticoagulation Take 1 tablet by mouth once daily 90 tablet Active venlafaxine XR (EFFEXOR-XR) 150 MG 24 hr capsuleIndications :Current mild episode of major depressive disorder without prior episode Take 1 capsule by mouth once daily 90 capsule Active warfarin (COUMADIN) 1 MG tabletIndications: H/O mechanical aortic valve replacement,Chroni c anticoagulation Take 1 tablet (1 mg total) by mouth daily. Take 7 mg M-R, then take 6 mg F-Sun 90 tablet Active alendronate (FOSAMAX) 35 MG tabletIndications: Age-related osteoporosis without current pathological fracture Take 1 tablet (35 mg total) by mouth every 7 days. 12 tablet Active tiZANidine (ZANAFLEX) 4 MG tabletIndications: Muscle spasm Take 1 tablet (4 mg total) by mouth every 6 (six) hours as needed. 30 tablet 025 2024 Active doxycycline hyclate (VIBRAMYCIN) 100 MG capsuleIndications :Acute non-recurrent sinusitis, unspecified location Take 1 capsule (100 mg total) by mouth 2 (two) times daily for 10 days. 20 capsule 025 2024 Active baclofen (LIORESAL) 10 MG tabletIndications: Muscle spasm Take 1 tablet (10 mg total) by mouth 3 (three) times daily for 7 days. 21 tablet 025 2024 Active warfarin (COUMADIN) 6 MG tabletIndications: Chronic anticoagulation Take 1 tablet (6 mg total) by mouth daily. 90 tablet 024 2024 Discontinued warfarin (COUMADIN) 1 MG tabletIndications: H/O mechanical aortic valve replacement,Chroni c anticoagulation Take 1 tablet (1 mg total) by mouth daily. 30 tablet 024 2024 Discontinued alendronate (FOSAMAX) 35 MG tablet Take 1 tablet (35 mg total) by mouth every 7 days. 2024 Discontinued(R eorder) venlafaxine XR (EFFEXOR-XR) 150 MG 24 hr capsuleIndications :Current mild episode of major depressive disorder without prior episode Take 1 capsule by mouth once daily 90 capsule 024 2024 Discontinued Misc. Devices (WALKER WHEELS) MiscIndications:Ot her chronic pain,Physical deconditioning 1 Device by Does not apply route once for 1 dose. 1 each 025 2024 Misc. Devices (WALKER) MiscIndications:Ot her chronic pain,Acute gout of left foot, unspecified cause 1 Device by Does not apply route once for 1 dose. Walker with front wheels. 1 each 025 2024 Active Problems Problem Noted Date Diagnosed Date Hyperthyroidism 06/22/2023 Heart failure with mildly re duced ejection fraction (HFmrEF) ([facility]) 02/16/2023 OLIVE (acute kidney injury) 08/26/2022 Graves' disease 07/07/2022 Cirrhosis of liver without a scites, unspecified hepatic cirrhosis type ([facility]) 07/07/2022 Stage 3b chronic kidney disease 07/07/2022 Encounter for prophylactic measures, unspecified 05/20/2022 Paroxysmal atrial fibrillation ([facility]) 12/01/2021 Hypertension associated with type 2 diabetes mellitus ([facility]) 12/01/2021 Chronic heart failure with p reserved ejection fraction (HFpEF) ([facility]) 11/25/2021 Physical deconditioning 11/06/2021 Care Management 07/29/2021 Age-related osteoporosis with current pathologic al fracture 07/16/2021 Anxiety 05/21/2021 Metacarpal bone fracture 05/21/2021 Mitral valve disorder 05/21/2021 Vision loss 05/21/2021 COPD (chronic obstructive pu lmonary disease) ([facility]) 05/21/2021 Drug-induced constipation 05/21/2021 Hematoma 12/13/2020 Hyperlipidemia associated wi th type 2 diabetes mellitus ([facility]) 11/25/2020 Chest pain 11/22/2020 Contusion of scalp 11/22/2020 Knee pain 11/22/2020 Localized, primary osteoarthritis 11/22/2020 Osteoarthritis of knee 11/22/2020 Traumatic closed displaced fracture of distal en d of radius 11/22/2020 Shoulder joint pain 11/22/2020 Closed stable burst fracture of sixth thoracic vertebra, initial encounter ([facility]) 09/13/2020 Disorder of skin of trunk 09/07/2020 Cobalamin deficiency 09/07/2020 Dysphagia 09/07/2020 Syncope, unspecified syncope type 09/07/2020 Wrist joint pain 09/07/2020 Requires lifelong warfarin therapy 09/07/2020 Hyperparathyroidism ([facility]) 09/07/2020 Plantar fascial fibromatosis 09/07/2020 Osteoporosis 09/07/2020 Numbness 09/07/2020 Muscle cramps 09/07/2020 Anemia 08/14/2020 Overview (09/07/2020): Last Assessment & Plan: Continue ferrous sulfate 325 mg daily 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[facility]) 08/14/2020 Overview (09/07/2020): Last Assessment & Plan: [...] test 05/06/2019 Coronary artery disease invo lving [place] coronary artery of [place] heart without angina pectoris 05/06/2019 Body mass index (BMI) 31.0-31.9, adult 0 Presence of prosthetic heart valve 02/23/2019 LBBB (left bundle branch block) 12/08/2018 Myopathy 02/17/2018 Diastolic heart failure ([facility]) 2017 Paroxysmal atrial flutter ([facility]) 08/2017 Compression fracture of thoracic vertebra ([facility]) 06/30/2017 Chronic anticoagulation 03/20/2017 H/O mechanical aortic valve replacement 03/20/19 18 Peripheral arterial occlusive disease 12/25/2016 Leukoencephalopathy 11/03/2016 Diverticular disease 10/12/2016 Internal hemorrhoids 10/12/2016 Diabetic polyneuropathy ([facility]) 2016 Parathyroid adenoma 09/17/2016 Disorder of rotator cuff 09/02/2016 Gastroesophageal reflux disease without esophagi tis 09/02/2016 Polymyalgia rheumatica ([facility]) 09/02/2016 Major depression single episode, in partial pollo ssion 09/02/2016 Primary osteoarthritis involving multiple joints 09/02/2016 H/O mechanical aortic valve replacement 09/03/19 17 Unknown and unspecified causes of morbidity 05/2016 Overview (09/07/2020): Morbid obesity with BMI of 40.0-44.9, adult Hypertensive heart disease w ith congestive heart failure ([facility]) 07/16/2015 Overview (11/21/2019): Diastolic heart failure secondary [...] 09/13/2020 09/17/2020 Chronic obstructive lung dis ease ([facility]) 09/07/2020 06/20/2021 Atrial fibrillation with rap id ventricular response ([facility]) 08/22/2020 07/07/2022 Senile purpura 07/13/2019 01/12/2023 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 toxic ity with longterm use 05/06/2019 02/03/2020 Prosthetic aortic valve stenosis 03/20/2017 02/03/2020 Kidney stone 02/03/2017 07/07/2022 Dizziness 08/15/2014 02/03/2020 Overview (11/21/2019): Dizziness History of anticoagulant therapy 08/15/2014 02/03/2020 Overview (11/21/2019): Chronic anticoagulation Encounters Date Type Department Care Team Description 06/15/2024 Patient Outreach [facility] Family & Internal [address] [phone] Dianne Johnson RN Care Management 06/09/2024 Telephone [facility] Family [facility] Internal [address] [phone] Suleman Montez, DO Concerns 06/08/2024 Patient Outreach [facility] Internal [place] [address] [place] [address] Dianne Johnson, RN Care Management 06/07/[address] [phone] Suleman Montez, DO Information 06/06/[address] [phone] Suleman Montez, DO Concerns 06/06/2024 Patient Outreach [address] [phone] Dianne Johnson, RN Care Management 06/06/[address] [phone] Suleman Montez, DO Referral 06/03/2024 Scan [facility] INFO SRVCS Scanned, [facility] 06/01/2024 Scan [facility] HE[facility] INFO SRVCS Scanned, Doc [facility] 05/31/2024 Scan [facility] INFO SRVCS Scanned, Doc [facility] 05/30/2024 3:40 PM CDT Office Visit [address] [phone] Suleman Montez, DO ER F/U (The patient presents for ER follow up. The patient states she went to the ER for A-Fib again. ) 05/30/2024 Travel 05/30/[address] [phone] Suleman Montez, DO Other 05/30/[address] [phone] Suleman Montez, DO Referral 05/30/2024 Patient Outreach [facility] Family & Internal [place] [place] [phone] Dianne Johnson, MANAGER UNION F/U ([place] ER on 05/28/24); Care Management 05/28/2024 Scan [facility] HEALTH INFO SRVCS Scanned, Doc [facility] Lab (SCAN); Image (SCAN) 05/26/2024 Scan [facility] HEALTH INFO SRVCS Scanned, Doc [facility] 05/26/2024 Telephone [facility] Family & Internal [place] [address] [place] [phone] Suleman Montez, DO Referral 05/26/2024 Patient Outreach [facility] Family Internal [facility] [address] [place] [phone] Dianne Johnson RN Care Management 05/24/2024 Scan [facility] HEALTH INFO SRVCS Scanned, Doc Med [facility] 05/23/2024 Scan [facility] INFO SRVCS Scanned, Doc [facility] 2024 Scan [facility] HEALTH INFO SRVCS Scanned, Doc Med [facility] 05/20/2024 Orders Only [facility] Family & Internal [facility] [address] [place] [phone] Suleman Montez, DO 05/19/2024 Patient Outreach [facility] Internal [place] [address] [place] [phone] Bebe Dan, BEATER ROOM SUPERVISOR Care Management 05/18/2024 Telephone [facility] Family Internal [place] [address] [place] [phone] Suleman Monetz, DO Prior Authorization 05/18/2024 Patient Outreach [facility] Family & Internal [facility] [address] [place] [phone] Dianne Johnson RN Care Management 05/17/2024 Scan [facility] HEALTH INFO SRVCS Scanned, Doc Med Group 05/17/2024 Telephone [facility] Internal [facility] [address] [place] [phone] Suleman Montez, DO Other 05/10/2024 Scan [facility] HEALTH INFO SRVCS Scanned, Doc Med Group 05/10/2024 Orders Only [facility] Internal [facility] [address] [place] [address] Suleman Montez, DO 05/10/2024 Telephone [place] [address] [place] [address] Suleman Montez, DO Other 05/10/2024 Telephone [place] [address] [place] [address] Suleman Montez, DO Prior Authorization (Alprazolam 0.5mg tablets) 05/10/2024 Patient Outreach [facility] [address] [place] [address] Dianne Johnson, RN Care Management 05/06/2024 Scan MG HEALTH INFO SRVCS Scanned, Doc Med Group 05/06/2024 Telephone [facility] [address] [place] [phone] Suleman Montez, DO Information 05/06/2024 Telephone [facility] [address] [place] [phone] Suleman Montez, DO Information 05/04/2024 Scan MG HEALTH INFO SRVCS Scanned, Doc Med [facility] Lab (SCAN) 05/04/2024 Telephone [facility] [address] [place] [phone] Suleman Montez, DO Information 05/04/2024 Patient Outreach [facility] [address] [phone] Silvina Dial, RN Care Management; ER F/U (Ed visit 05/03/24) 05/04/2024 Telephone [facility] [address] [phone] Suleman Montez, DO Question 05/03/2024 10:40 AM CUSTOMER ENGAGEMENT REPRESENTATIVE Office Visit [facility] [address] [phone] Suleman Montez, DO TCM (The patient presents for TCM. The patient states she was admitted at [place] for A-fib. The patient was transferred to [facility] for a swing bed due to covid and pneumonia.) 05/03/2024 Scan HEALTH INFO SRVCS Scanned, Doc Med [facility] Lab (SCAN); Image (SCAN) 05/03/2024 Travel 05/01/2024 Scan MG HEALTH INFO SRVCS Scanned, Doc [facility] Lab (SCAN) 04/28/[address] [phone] Suleman Montez, DO Lab Results 04/27/[address] [phone] Suleman Montez, DO Information 04/26/2024 Scan MG HEALTH INFO SRVCS Scanned, Doc Med [facility] 04/26/2024 Telephone [facility] [address] [phone] Suleman Montez, DO Information 04/26/[address] [phone] Suleman Montez, DO Other 04/25/2024 1:40 PM CUSTOMER ENGAGEMENT REPRESENTATIVE Allied Health/Nurse Visit [facility] [address] [place] [address] Suleman Montez, DO Anticoagulation 04/25/2024 Scan [facility] HEALTH INFO SRVCS Scanned, Doc Med [facility] 04/25/2024 Travel 04/25/2024 Patient Outreach [facility] Family Internal [place] [address] [place] [phone] Silvina Dial RN TCM ([facility] [place] 03/09/24-04/08, [place] swing bed 04/08-04/22) 04/22/2024 Scan [facility] HEALTH INFO SRVCS Scanned, Doc Med [facility] 04/22/2024 Telephone [facility] [address] [phone] Suleman Montez, DO Information 04/18/2024 Patient Outreach [facility] Family Internal [address] [phone] Dianne Johnson RN Hospital Follow Up (Currently at [facility] ) 04/12/2024 Telephone [facility] Multispecialty Care - [address], [address] [place] [phone] Julio Pulido MD Appointment Request 04/09/2024 Scan MG HEALTH INFO SRVCS Scanned, Doc Med [facility] 04/08/2024 Scan MG HEALTH INFO SRVCS Scanned, Doc Med Group 04/08/2024 Patient Outreach [facility] Family & Internal [address] [phone] Lola Haley net technical architect Medication (Trulicity - successful 2024) 04/08/2024 Patient Outreach [facility] Family & Internal [place] [address] [place] [address] Court Robles RN Hospital Follow Up (Outreach calls) 04/01/2024 Scan MG HEALTH INFO SRVCS Scanned, Doc Med Group Image (SCAN) 03/31/2024 Scan MG HEALTH INFO SRVCS Scanned, Doc [facility] Procedure (SCAN) 03/29/2024 Scan MG HEALTH INFO SRVCS Scanned, Doc Med [facility] Image (SCAN); CT (SCAN) 03/28/2024 Patient Outreach [facility] Family & Internal Medicine [address] [phone] Dianne Johnson RN Hospital Follow Up (Currently at [facility] ) 03/26/2024 Scan MG HEALTH INFO [...] Doc Med Group Image (SCAN) 03/17/2024 Telephone [facility] Family & Internal Medicine [address] [phone] Suleman Montez P, DO Information from Last 3 Months Immunizations Name Administration Dates Next Due Fluzone High Dose (IIV, triv alent, 0.5mL) 12/08/2023 Fluzone High Dose - >Age 65 (Prefilled Syringe) 01/12/2023,12/23/2021,12/13/2020,2019,12/13/2018,12/03/2017 Influenza (Generic) 12/27/2014,12/23/2013,2012 Influenza Adult (Generic) 12/13/2018,,12/25/2016,2014,11/30/2013,02/26/2012 PFIZER COVID-19 (ESTEVES CAP), MRNA, LNP-S, PF, 30 MCG/0.3 ML ROGERS-SUCROSE, IM 08/29/2021 PFIZER COVID-19 (ORIGINAL FORMULATION, PURPLE CAP) mRNA, LNP-S, PF, 30 MCG/0.3 ML DOSE 02/23/2021,06/01/2020,05/10/2020 Pneumococcal (Pneumovax 23) 03/30/2017 Pneumococcal (Prevnar 13) 06/15/2015 Shingrix 11/11/2022 Td 07/22/2014 Td (Generic) 07/22/2014 Td (TDVAX) 07/22/2014 Tdap (Boostrix) 09/05/2020 Tdap (Generic) 09/05/2020,06/05/2016 Tetanus/Diptheria 07/22/2014 Zoster (Zostavax) 49796 Unt/0.65Ml 12/25/2015 Family History Medical History Relation [...] week 08/26/2022 How often do you attend [facility] or worship services? More than 4 times [...] Recorded Patient Health Questionnaire-2 Score 0 05/03/2024 [facility] [...] Sex Assigned at Female 05/03/2024 10:53 AM CUSTOMER ENGAGEMENT REPRESENTATIVE Legal Sex Female 11:18 AM CDT Gender Identity Female 05/03/2024 10:53 AM CUSTOMER ENGAGEMENT REPRESENTATIVE Sexual Orientation Not on file Last Filed Vital Signs Vital Sign Reading Time Taken Comments Blood Pressure 104/68 05/30/2024 3:44 PM CDT Pulse 54 05/30/2024 3:44 PM CDT Temperature 36.3 C (97.3 F) 05/30/2024 3:44 PM CDT Respiratory Rate 16 05/30/2024 3:44 PM CDT Oxygen Saturation 98% 05/30/2024 3:44 PM CDT Inhaled Oxygen Concentration - - Weight 74.1 kg (163 lb 4.8 oz) 05/30/2024 3:44 P M CDT Height 158.8 cm (5' 2.5 ) 05/30/2024 3:44 PM CDT Body Mass Index 29.39 05/30/2024 3:44 PM CDT Plan of Treatment Upcoming Encounters Date Type Department Care Team (Late st Contact Info) Description 07/04/2024 3:20 PM CDT Office Visit [facility] Family & Internal Medicine [facility] [address] [place] [address] Suleman Montez, [address], [place] [id number] Health Maintenance Due Date Last Done Comments [...] Completed 11/24/2023, 02/24/2023, 02/24/2023, Additional history exists PHQ-2 (Physician [place]) Completed 05/03/2024 Meningococcal B Vaccine Aged Out [...] 2:11 PM CDT) Dianne Corona, RN Note: 12/17/23: Patient stated she is independent with ASL's. Establish Plan for Symptom Monitoring-CHF General On track(2024 4:52 PM CDT) Dianne Corona RN Note: Patient [...] General On track(2024 4:52 PM CDT) Dianne Corona RN Note: Patient [...] fib Lifestyle On track(2024 2:11 PM CDT) Dianne Corona RN Note: Atrial Fib: Patient will recognize symptoms of atrial fibrillation and report to physician should they occur. Establish regular follow ups with Family Practitioner, take medications exactly as directed without skipping doses. Procedures Procedure Name Priority Date/Time Associated Diagnosis Comments OUTSIDE PT/INR (SCAN ORDER) 05/28/2024 OUTSIDE LAB (SCAN ORDER) 05/28/2024 IMAGE GENERIC 05/28/2024 OUTSIDE LAB (SCAN ORDER) 05/04/2024 OUTSIDE LAB (SCAN ORDER) 05/04/2024 ELECTROCARDIOGRAM (NON MIDMARK ACQUIRED) Routine 05/03/2024 11:34 AM CUSTOMER ENGAGEMENT REPRESENTATIVE Paroxysmal atrial flutter (CMS/HCC HHS/HCC) EVENT RECORDER (ECG) UP TO 30 DAYS REVIEW/INTERP Routine 05/03/2024 10:40 AM CUSTOMER ENGAGEMENT REPRESENTATIVE Paroxysmal atrial flutter (CMS/HCC HHS/HCC) COLLECT.CAPILLARY (FNGR,HEEL,EAR) Routine 05/03/2024 10:39 AM CUSTOMER ENGAGEMENT REPRESENTATIVE Chronic anticoagulation OUTSIDE PT/INR (SCAN ORDER) 05/03/2024 OUTSIDE LAB (SCAN ORDER) 05/03/2024 OUTSIDE PT/INR (SCAN ORDER) 05/03/2024 OUTSIDE LAB (SCAN ORDER) 05/03/2024 PROTHROMBIN TIME, FINGERSTICK Routine 05/03/2024 Chronic anticoagulation IMAGE GENERIC 05/03/2024 IMAGE GENERIC 05/03/2024 OUTSIDE LAB (SCAN ORDER) 05/01/2024 COLLECT.CAPILLARY (FNGR,HEEL,EAR) Routine 04/25/2024 1:41 PM CUSTOMER ENGAGEMENT REPRESENTATIVE Chronic anticoagulation PROTHROMBIN TIME, FINGERSTICK Routine 04/25/2024 Chronic anticoagulation IMAGE GENERIC 04/01/2024 PROCEDURE GENERIC (SCAN ORDER) 03/31/2024 CT GENERIC 03/29/2024 IMAGE GENERIC 03/29/2024 IMAGE GENERIC 03/26/2024 CT GENERIC 03/24/2024 IMAGE GENERIC 03/23/2024 STRESS TEST (SCAN ORDER) 03/22/2024 STRESS TEST (SCAN ORDER) 03/22/2024 CT GENERIC 03/21/2024 IMAGE GENERIC 03/20/2024 IMAGE GENERIC 03/18/2024 HEMOGLOBIN, GLYCOSYLATED Routine 02/29/2024 Type 2 diabetes mellitus with stage 3b chronic kidney disease, without long-term current use of insulin ([facility]) BONE DENSITY GENERIC (SCAN ORDER) 11/24/2023 LIPID [...] Relevant to Health Maintenance Results * OUTSIDE PT/INR (SCAN ORDER) (05/28/2024) Only the most recent of3 resultswithin the time period is included. 05/28/2024 [facility] Scanned SCANNING Final Resu lt * OUTSIDE LAB (SCAN ORDER) (05/28/2024) Only the most recent of6 resultswithin the time period is included. 05/28/2024 [facility] Scanned SCANNING Final Resu lt * IMAGE GENERIC (05/28/2024) Only the most recent of9 resultswithin the time period is included. Anatomical Region Laterality Modality Other 05/28/2024 [facility] Scanned SCANNING Final Resu lt * EKG WELCHALLEN ACQUIRED (05/03/2024 11:34 AM CUSTOMER ENGAGEMENT REPRESENTATIVE) 05/03/2024 11:3 4 AM CUSTOMER ENGAGEMENT REPRESENTATIVE Narrative [facility] - 05/04/2024 9:41 AM CUSTOMER ENGAGEMENT REPRESENTATIVE [facility] [address] [place] [address] Test Date: 2024-05-03 Pat Name: ANA MARIA JERAMIE Department: [id number] Room: Gender: Female Mail Reader: : 1945 Requested By: SULEMAN MONTEZ Order Number: [id number] Reading MD: Suleman Montez Measurements Intervals [place] Rate: 132 P: -65 KS: 120 QRS: -27 QRSD: 132 T: 126 QT: 318 QTc: 472 Interpretive Statements Atrial Fibrillation with RVR LEFT BUNDLE BRANCH BLOCK OMER ENGAGEMENT REPRESENTATIVE Procedure Note Suleman Montez DO - 05/04/2024 [facility] [address] [place] [address] Test Date: 2024-05-03 Pat Name: ANA MARIA BOBO Department: 171 Room: Gender: Female Mail Reader: : 1945 Requested By: SULEMAN MONTEZ Order Number: [id number] [place] MD: Suleman Montez Measurements Intervals [place] Rate: 132 P: -65 KS: 120 QRS: -27 QRSD: 132 T: 126 QT: 318 QTc: 472 Interpretive Statements Atrial Fibrillation with RVR LEFT BUNDLE BRANCH BLOCK OMER ENGAGEMENT REPRESENTATIVE us Suleman Montez DO PROCEDURES-ORDERABLE NO CHARGE Final Result [facility] * ECG Review/Interpret Only (05/03/2024 10:40 AM CUSTOMER ENGAGEMENT REPRESENTATIVE) Narrative Suleman Montez DO - 05/03/2024 10:40 AM CUSTOMER ENGAGEMENT REPRESENTATIVE Suleman Montez DO 05/04/2024 9:57 AM ECG [...] T waves normal Clinical impression: abnormal ECG Suleman Montez DO ECG ORDERABLES Final Re sult * PROTIME/INR, FINGERSTICK (05/03/2024) Only the most recent of2 resultswithin the time period is included. INR WHOLE BLOOD 2.00 [facility] 05/03/2024 Result [facility] Suleman Montez DO LABORATORY Final Re sult [facility] [address] [place] [address], [place] * PROCEDURE GENERIC (SCAN ORDER) (03/31/2024) 03/31/2024 [facility] Scanned SCANNING Final Resu lt * CT GENERIC (03/29/2024) Only the most recent of3 resultswithin the time period is included. Anatomical Region Laterality Modality Other 03/29/2024 [facility] Scanned SCANNING Final Resu lt * STRESS TEST (SCAN ORDER) (03/22/2024) Only the most recent of2 resultswithin the time period is included. 03/22/2024 [facility] Scanned SCANNING Final Resu lt * HEMOGLOBIN, GLYCOSYLATED (02/29/2024) HGB A1C 5.5 % [facility] 02/29/2024 Result [facility] Suleman Montez DO LABORATORY Final Re sult [facility] [address] [place] [address], [place] * BONE DENSITY GENERIC (SCAN ORDER) (11/24/2023) Anatomical Region Laterality Modality Other 11/24/2023 [facility] Scanned SCANNING Final Resu lt * (ABNORMAL) LIPID PANEL (08/14/2023 12:00 PM CDT) CHOLESTEROL 201(H) <200 MG/DL 08/14/2023 7:44 PM CDT [facility] TRIGLYCERIDES 97 <150 MG/DL 08/14/2023 7:44 PM CDT [facility] HDL 66 >40 MG/DL 08/14/2023 7:44 PM CDT [facility] LDL-C 116(H) <100 MG/DL 08/14/2023 7:44 PM CDT [facility] VLDL CALCULATION 19 5 - 28 MG/DL 08/14/2023 7:44 PM CDT [facility] CHOL/HDL RATIO 3.0 0.0 - 4.0 08/14/2023 7:44 PM CDT [facility] LDL/HDL 1.8 0.41 - 2.13 08/14/2023 7:44 PM CDT [facility] NON HDL CHOLESTEROL 135 <140 MG/DL 08/14/2023 7:44 PM CDT [facility] 08/14/2023 12:0 0 PM CDT Suleman Montez DO LABORATORY Final Re sult [facility] [address] [place] [address], [place] [phone] * DIABETIC RETINOPATHY EXAM (NEGATIVE)(SCAN) (04/21/2022) [facility] Scanned SCANNING Final Resu lt [facility] from Last 3 Months or Most [...] 4:17 PM 10/21/2021 4:52 PM Care Teams Headwaiter/Headwaitress Relationship Specialty Start Date End Date Suleman Montez DO [address] [place] [id number] PCP - General FAMILY PRACTICE 09/25/20 Dianne Johnson, RN [address] [place] [address] Contracting Specialist (Ambulatory) REGISTERED NURSE 08/14/20
--- OUTSIDE RECORDS SUMMARY | 2024-06-15 14:50 | XMS_ITS | Clinical Summary ---
Author Organization [facility] [address] Address [address] [place] [address] Care Team Providers Care Viscose Department Worker Name Role Phone Sanjeev Webster DO Primary Care Provide r Allergies Active Allergy Reactions Criticality Noted Date Comments Atorvastatin Muscle pain,Other (See comments) High 08/12/2021 Leg pain/cramps. Resolved after stopping. Bacitracin Benzalkonium Cortisone Rash,Unknown High 08/02/2023 Gramicidin D Hydrocortisone Neomycin Xlwkrsvx-Suuwcgoycx-Tprba yxin Other (See comments) Low 07/31/2020 It [...] monitor 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 toxicity with terminal supervisor u se 05/06/2019 Coronary artery disease invo lving [place] coronary artery of [place] heart without angina pectoris 05/06/2019 Abnormal stress test 05/06/2019 Bradycardia 05/06/2019 LBBB (left bundle branch block) 12/08/2018 Myopathy 02/17/2018 Paroxysmal atrial flutter ([facility]) 08/12/2017 Assessment & Plan (08/14/2020 8:04 [...] a associated with type 2 diabetes mellitus ([facility]/HCC) 07/16/2015 Overview (06/13/2016): DM type 2 with [...] Type Department Care Team Description 05/03/2024 Telephone [facility] Cardiology [address] [place] [address] Paxton Villela MD Atrial Fibrillation from Last 3 Months Surgical History Surgery Date Site/Laterality Comments OTHER SURGICAL HISTORY Valve Replacement [facility] Medical History Medical History Date Comments [...] on file Legal Sex Female 6:10 AM CONCILIATOR Gender Identity Not on file Sexual Orientation Not on file Obstetrics History Last Filed Vital Signs Vital Sign [place] Time Taken Comments Blood Pressure 90/64 02/29/2024 10:36 AM CONCILIATOR Pulse 68 02/29/2024 10:36 AM CONCILIATOR Temperature 36.6 C (97.8 F) 08/17/2020 12:52 AM CDT Respiratory Rate 20 08/17/2020 12:52 AM CDT Oxygen Saturation 98% 02/29/2024 10:36 AM CONCILIATOR Inhaled Oxygen Concentration - - Weight 79.8 kg (176 lb) 02/29/2024 10:36 AM CONCILIATOR Height 165.1 cm (5' 5 ) 02/29/2024 10:36 AM CONCILIATOR Body Mass Index 29.29 02/29/2024 10:36 AM CONCILIATOR Plan of Treatment Health Maintenance Due Date [...] Screening-Bone Density Scan 07/16/2023 07/15/2021 Covid-19 Vaccine (2023- 5 season) 2023 02/23/2021, 06/01/2020, 05/10/2020 Lipid Panel 08/13/2024 08/14/2023, 09/06, 09/12/2021, Additional history exists DTaP/Tdap/Td Vaccine (3 - Td or Tdap) 09/05/2030 09/05/2020, 06/05/2016, 07/22/2014 Pneumococcal vaccine 65+ Completed 03/30/2017, 0410/2015 Influenza Vaccine Completed 12/08/2023, , 12/03/2017, Additional [...] Hess NP POINT OF CARE TEST ORDERA KOLTON Edited Result - Final * eGFR (08/14/2020 [...] ORDERABLES Final Resul t Performing Organization Address [facility] de Phone Number KERRIE [address] [facility] [employer] [place] [address] * (ABNORMAL) Hemoglobin A1c (08/14/2020 9:38 AM CDT) Hgb A1C 6.0(H) 4.0 - 5.6 % KERRIE Estimated Average Glucose 126 mg/dL KERRIE Comment: The ADA recommends reporting an estimated Average Glucose (eAG) with all Hemoglobin A1c results using the equation derived from a study of 507 normal and diabetic adults. Minority populations were underrepresented and children were not included. (Diabetes Care 31:0076-5221, 2008). The eAG is not equivalent to a fasting glucose. Blood specimen (specimen) 08/14/2020 9:38 AM CDT 08/14/2020 9:54 AM CDT us Amparo Vergara MD LAB BLOOD ORDERABLES Final Resul t Performing Organization Address [facility] Co de Phone Number [id number] [employer] [place] [address] from Last 3 Months or Most Recently Relevant to Health Maintenance Insurance [facility] Advance Directives For more information, please contact: [phone] Documents on File Type Date Recorded Patient Cell Feed Department Supervisor Expl anation ADVANCE DIRECTIVE 09/04/2020 1:26 PM OUTSI [facility] DNR ADVANCE DIRECTIVE 09/03/2020 12:52 PM ADVANCE DIRECTIVE 08/16/2020 11:40 AM OUTS [facility] DNR * Full Code (Latest Code Status on File) Date Activated Date Inactivated Comments 08/11/2020 6:08 PM 08/17/2020 5:34 PM Care Teams Viscose Department Worker Relationship Specialty Start Date End Date Sanjeev Webster DO [address] [place] [id number] PCP - General Family Medicine 03/11/21
--- NOTE | 2024-06-15 15:17 | ED.NAVMDI ---
HPI - Nausea/Vomiting/Diarrhea General Chief complaint: Nausea/Vomiting/Diarrhea Stated complaint: n/v Time Seen by Provider: 06/15/24 13:55 Source: patient Mode of arrival: ambulatory Limitations: no limitations History of Present Illness HPI Narrative: Patient presents with complaint of nausea and vomiting of 3 days duration and now diarrhea starting this morning. She describes stools that are black in color. She notes that they have been black like this for a bit and she attributes that to taking a vitamin. She describes this than like tar. She denies any abdominal pain. No sick contacts. She states she thinks she might have been on antibiotics recently, possibly a medication that started with a B (Bactrim doesn't sound familiar to her) - It was white...or maybe it was a light brown pill... She lives at home by herself. She is on iron supplement. She denies Pepto-Bismol. He was initially documented that patient is not on anticoagulation however she does state that she is on Coumadin for her atrial fibrillation and her last dose was on either Thursday or Thursday, she cannot recall. She does not know what her goal INR is. Denies any prior GI bleed. She states she has been spitting up the white foam. Last oral intake was chicken noodle soup yesterday. Related Data Home Medications ?Medication ?Instructions ?Recorded ?Confirmed ?Last Taken ?Type gabapentin 300 mg capsule 300 mg PO Q8H 01/09/19 06/15/24 04/08/24 08:30 History venlafaxine 150 mg 150 mg PO DAILY 01/09/19 06/15/24 04/08/24 08:30 History capsule,extended release 24 hr furosemide 20 mg tablet 20 mg PO DAILY 03/18/22 06/15/24 12/12/23 History potassium chloride 10 mEq 10 meq PO HS 03/18/22 06/15/24 04/07/24 21:39 History tablet,extended release cholecalciferol (vitamin D3) 1,000 units PO DAILY 08/23/23 06/15/24 04/08/24 08:30 History simvastatin 10 mg PO HS 08/23/23 06/15/24 04/07/24 21:50 History alprazolam 0.5 mg tablet 0.25 mg PO HS PRN Anxiety 11/01/23 06/15/24 04/03/24 20:45 History omeprazole 40 mg capsule,delayed 40 mg PO DAILY 11/01/23 06/15/24 04/08/24 08:30 History release warfarin 6 mg tablet 6 mg PO DAILY 03/08/24 06/15/24 04/08/24 17:40 History alendronate 35 mg tablet 35 mg PO WEEKLY 06/15/24 06/15/24 Unknown History metoprolol succinate 25 mg 25 mg PO DAILY 06/15/24 06/15/24 Unknown History tablet,extended release 24 hr polyethylene glycol 3350 17 gram 17 g PO QAM PRN constipation 06/15/24 06/15/24 Unknown History oral powder packet (Miralax) sotalol 80 mg tablet 40 mg PO BID 06/15/24 06/15/24 Unknown History warfarin 1 mg tablet 1 mg PO DAILY 06/15/24 06/15/24 Unknown History Allergies Allergy/AdvReac Type Severity Reaction Status Date / Time adhesive tape Allergy Intermediate Blister Verified 05/03/24 19:44 cortisone Allergy Intermediate Rash Verified 05/03/24 19:44 bacitracin Allergy Mild Rash Verified 05/03/24 19:44 neomycin Allergy Mild Rash Verified 05/03/24 19:44 polymyxin B Allergy Mild Rash Verified 05/03/24 19:44 [facility] Past Medical History Medical History (Updated 06/16/24 @ 08:50 by Kayli Barfield, KRANTHI) Chronic kidney disease Baseline creatinine is around 1.50. Paroxysmal atrial fibrillation Irritable bowel syndrome Gallbladder disorder Arthritis Vitamin B12 deficiency Restless leg syndrome Congestive heart failure Echocardiogram in March 2021 showed normal FVC size, moderate LVH, borderline LV systolic function with an EF of 50 to 55%, and grade 1 diastolic dysfunction. Depression with anxiety Degenerative joint disease Burst fracture of thoracic vertebra Kidney stone Obstructive sleep apnea on CPAP Diverticulitis Hypertension Type 2 diabetes mellitus Chronic obstructive pulmonary disease Patient had a pulmonary function test on 02/24/2020 which was suggestive of COPD. Chronic anticoagulation Hyperlipidemia Herniated disc Surgical History Surgical History History of right knee surgery Ligamentous repair. History of bilateral cataract extraction History of mechanical aortic valve replacement (2003) [facility] valve. History of ankle surgery ORIF left ankle fracture. History of hysterectomy Family History Family History Mother Family history of cardiovascular disease Family history of arthritis CHF (congestive heart failure) Depression Family history of coronary artery disease Father Family history of cardiovascular disease Diabetes mellitus Family history of arthritis Acute myocardial infarction Family history of diabetes mellitus in first degree relative Sibling , cancer Family history of arthritis Malignant neoplasm of prostate Sibling Family history of arthritis Malignant neoplasm of prostate Social History Social History Social History: Surrogate decision maker: Izzy Martinez, daughter. Code status: Full code. Smoking packs per day: 1 Smoking cigarettes per day: 20.0 Years smoked: 5 Smoking pack-years: 5.00 Smoking status: Never smoker Tobacco type: cigarettes Second hand tobacco smoke exposure: No Alcohol intake: never Substance use: never Substance use type: does not use Do You Feel Safe in your Home?: Yes Lack of Transportation: YES Lack of Food: Sometimes True Current Housing: I Have Housing Concerned About Future Housing: No Difficulty Paying Gas/Electric Bills: No Difficulty Paying for Meds: No Currently Unemployed: No Education: Grade School Difficulty w/ Childcare or Family Care: No Living arrangements: alone Additional living arrangements comments: . She has 4 children. 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 Spiritual care concerns: No Agree to blood products: Yes Exam Narrative: GENERAL: Well-appearing, well-nourished, and in no acute distress. HEAD: Normocephalic, atraumatic. EYES: Non injected, non icteric ENT: Nares clear, no rhinorrhea or epistaxis. Dry mucous membranes NECK: Supple. CHEST: Speaking in full sentences. No respiratory distress. HEART: Regular rate and rhythm. . ABDOMEN: Soft, nondistended. Nontender to palpation throughout. No rigidity or guarding. EXTREMITIES: Normal range of motion. No lower extremity edema. SKIN: Warm, dry, no rash. Poor skin turgor. NEURO: No focal deficits. Alert and oriented x3. PSYCH: Normal mood and affect. Course Vital Signs Vital signs: Vital Signs Pulse Rate 60 06/15/24 13:29 Respiratory Rate 13 06/15/24 13:29 Blood Pressure 171/71 H 06/15/24 13:29 Pulse Oximetry 97 06/15/24 13:29 Oxygen Delivery Room Air 06/15/24 13:29 Temperature 98.3 F 06/16/24 06:00 Pulse Rate 80 06/16/24 09:07 Respiratory Rate 18 06/16/24 06:00 Blood Pressure 137/63 06/16/24 06:00 Pulse Oximetry 94 06/16/24 06:00 Oxygen Delivery Room Air 06/15/24 21:40 MDM - Nausea/Vomiting/Diarrhea MDM Narrative Medical decision making narrative: Patient presents with nausea and vomiting of 3 days duration. She started having diarrhea this morning. She describes her stool as black. She says it has been black in color for a while and has attributed this to taking a different vitamin. She states that is thin like tar. She is on Coumadin for her atrial fibrillation. No abdominal pain. In the emergency department she is afebrile vital signs notable for hypertension. Viral swab negative. The differential for acute ( less than 14d) diarrhea includes infectious etiologies (viral, preformed toxins, toxins formed after colonization, invasive bacteria, and parasites), medications, inflammatory causes (IBD, radiation enteritis, ischemic colitis, diverticulitis), malabsorption, secretory causes, or motility disorders. Hyperglycemia without anion gap or acidosis. Mild abnormalities on her differential however patient is without anemia, thrombocytopenia, or leukocytosis. Mild elevation in creatinine from previous although per review of the EMR, patient had trended this level for a while. Will give 1 L IV fluids given that she appears dehydrated. Will also give Zofran. Mild hypomagnesemia. Patient states she is supposed to be on Coumadin for a history of atrial fibrillation although she does not know for goal INR. She states it was last checked 1 week ago. It is >4 today. Repeat H/H in 4 hours ordered. Mild hypomagnesemia but will not replete given can cause worsened diarrhea. Elevated BNP. Pia-Blatchford bleeding score: Based on patient's Hgb, BUN, initial SBP, sex, heart rate, presence/absence of melena, syncope, hepatic disease, cardiac failure: 2?points A GBS greater than zero suggests a ?High Risk? GI bleed that is likely to require ?medical intervention?: transfusion, endoscopy, or surgery. A higher GBS also correlated with a higher likelihood of needing intervention (scores >= are associated with >50% risk of needing intervention) L[place]leton Score (predicts readmission risk in patients with acute lower GI bleeding) Based on age, sex, previous lower GI bleed admission, YISEL findings, HR, SBP, and initial Hgb: 10 points; 91?% Probability of safe discharge (absence of rebleeding, blood transfusion, therapeutic intervention, 28 day readmission, or ). Discharge NOT recommended. Consider admission with further workup and resuscitation as necessary. Given these scores and the questionable findings in upper and lower GI on CT imaging, I recommend admitting. Discussed with wire rope fabrication supervisor Dr. Velasco who concurs and recommend making NPO at midnight. Patient continues to have some productive sputum. It is clear in the napkin she shows me. Chest x-ray ordered. This shows possible pneumonitis. Patient discussed with on-call hospitalist [facility] [place]. Accepted for admission. There is a delay in being able to put in bed orders due to another critical patient in the ED. patient had confirmed full code status. Differential Diagnosis Differential diagnosis: Likely food poisoning, gastroenteritis, drug-induced nausea and vomiting, dehydration and other (Acute viral syndrome diverticulosis, diverticulitis, gastritis, Meckel's diverticulum, IBD, infectious diarrhea) Lab Data Attestation: I reviewed the patient's lab results. 06/16/24 04:59 06/16/24 04:59 Labs: Lab Results 06/15/24 06/15/24 06/15/24 Range/Units 14:41 15:52 18:17 WBC 7.9 (4.5-10.0) K/mm3 RBC 3.83 L (4.2-5.4) M/mm3 Hgb 12.4 (12.0-15.0) g/dL Hct 40.2 (37.0-47.0) % MCV 105.0 H (80-100) fl MCH 32.4 (26-34) pg MCHC 30.8 L (32-36) g/dl RDW 12.7 (11.5-14.5) % Plt Count 261 (150-375) k/mm3 MPV 12.5 H (7.4-10.4) fl Immature Gran % (Auto) 0.3 (0-0.5) % Neut % (Auto) 68.0 (45.5-73.1) % Lymph % (Auto) 17.5 L (18.3-44.2) % [place] % (Auto) 11.4 H (2.6-8.5) % Eos % (Auto) 1.8 (0-4.4) % Baso % (Auto) 1.0 (0.2-1.2) % Lymph # (Auto) 1.38 (0.9-3.2) K/mm3 [place] # (Auto) 0.9 H (0.1-0.6) K/mm3 Eos # (Auto) 0.1 (0-0.3) K/mm3 Baso # (Auto) 0.1 (0.0-0.1) K/mm3 Abs Immat Gran (auto) 0.02 (0.00-0.031) K/mm3 Absolute Neuts (auto) 5.4 (1.3-6.7) K/mm3 Absolute Nucleated RBC 0.000 (0.0-0.012) K/mm3 Nucleated RBC % 0.0 (0.0-0.2) % PT 41.0 H (11.1-14.7) Seconds INR 4.2 APTT 66.8 H (22.3-36.8) Seconds Sodium 140 (137-145) mmol/L Potassium 4.0 (3.4-5.0) mmol/L Chloride 104 (98-107) mmol/L Carbon Dioxide 31 H (22-30) mmol/L Anion Gap 5 (4-12) mmol/L BUN 16 (7-17) mg/dL Creatinine 1.08 H (0.7-1.0) mg/dL Estim Creat Clear Calc 35 ml/min Estimated GFR 49 L (59 - ) Glucose 161 H (65-110) mg/dL POC Capillary Glucose (65-105) mg/dl Calcium 10.6 H (8.4-10.2) mg/dL Magnesium 1.5 L (1.6-2.3) mg/dL Iron TIBC % Saturation Total Bilirubin 0.5 (0.2-1.3) mg/dL AST 29 (14-36) U/L ALT 20 (6-35) U/L Alkaline Phosphatase 82 (38-126) U/L NT-Pro-B Natriuret Pep 5850 H (19.9-100) pg/mL Total Protein 8.0 (6.3-8.2) g/dL Albumin 3.9 (3.5-5.1) g/dL Lipase 83 (23-300) U/L Vitamin B12 Folate TSH (0.465-4.680) uIU/mL Thyroxine (T4) (5.53-11.0) ug/dL Urine Color Yellow (Yellow) Urine Appearance Clear (Clear) Urine pH 5.5 (5.0-9.0) Ur Specific [place] 1.028 (1.001-1.035) Urine Protein Negative (Negative) mg/dL Urine Glucose (UA) Negative (Negative) mg/dL Urine Ketones Negative (Negative) mg/dL Ur Blood (Man) Negative (Negative) Urine Nitrate Negative (Negative) Urine Bilirubin Negative (Negative) Urine Urobilinogen 0.2 (<2.0) mg/dL Leukocyte Esterase Rfl 2+ H (Negative) GARRETT/UL Urine RBC 0-2 (0-2) /hpf Urine WBC 11-20 H (0-3) /hpf Ur Squamous Epith Cells Occasional (Few) /hpf Urine Bacteria None seen /hpf Urine Casts 0-2 Influenza A (RT-PCR) Negative (Negative) Influenza B (RT-PCR) Negative (Negative) RSV (RT-PCR) Negative (Negative) SARS-CoV-2 RNA (RT-PCR) Negative (Negative) Blood Type A Positive Antibody Screen Negative 06/15/24 06/16/24 06/16/24 Range/Units 19:45 04:52 04:59 WBC 5.3 (4.5-10.0) K/mm3 RBC 3.26 L (4.2-5.4) M/mm3 Hgb 12.2 10.5 L (12.0-15.0) g/dL Hct 38.2 33.6 L (37.0-47.0) % MCV 103.1 H (80-100) fl MCH 32.2 (26-34) pg MCHC 31.3 L (32-36) g/dl RDW 12.5 (11.5-14.5) % Plt Count 236 (150-375) k/mm3 MPV 13.0 H (7.4-10.4) fl Immature Gran % (Auto) (0-0.5) % Neut % (Auto) (45.5-73.1) % Lymph % (Auto) (18.3-44.2) % [place] % (Auto) (2.6-8.5) % Eos % (Auto) (0-4.4) % Baso % (Auto) (0.2-1.2) % Lymph # (Auto) (0.9-3.2) K/mm3 [place] # (Auto) (0.1-0.6) K/mm3 Eos # (Auto) (0-0.3) K/mm3 Baso # (Auto) (0.0-0.1) K/mm3 Abs Immat Gran (auto) (0.00-0.031) K/mm3 Absolute Neuts (auto) (1.3-6.7) K/mm3 Absolute Nucleated RBC (0.0-0.012) K/mm3 Nucleated RBC % (0.0-0.2) % PT 46.3 H (11.1-14.7) Seconds INR 4.9 APTT 72.9 H (22.3-36.8) Seconds Sodium 139 (137-145) mmol/L Potassium 3.7 (3.4-5.0) mmol/L Chloride 106 (98-107) mmol/L Carbon Dioxide 29 (22-30) mmol/L Anion Gap 4 (4-12) mmol/L BUN 14 (7-17) mg/dL Creatinine 0.99 (0.7-1.0) mg/dL Estim Creat Clear Calc 38 ml/min Estimated GFR 54 L (59 - ) Glucose 81 (65-110) mg/dL POC Capillary Glucose (65-105) mg/dl Calcium 9.9 (8.4-10.2) mg/dL Magnesium 2.2 (1.6-2.3) mg/dL Iron Pending TIBC Pending % Saturation Pending Total Bilirubin (0.2-1.3) mg/dL AST (14-36) U/L ALT (6-35) U/L Alkaline Phosphatase (38-126) U/L NT-Pro-B Natriuret Pep (19.9-100) pg/mL Total Protein (6.3-8.2) g/dL Albumin (3.5-5.1) g/dL Lipase (23-300) U/L Vitamin B12 Pending Folate Pending TSH 1.320 (0.465-4.680) uIU/mL Thyroxine (T4) 7.08 (5.53-11.0) ug/dL Urine Color (Yellow) Urine Appearance (Clear) Urine pH (5.0-9.0) Ur Specific [place] (1.001-1.035) Urine Protein (Negative) mg/dL Urine Glucose (UA) (Negative) mg/dL Urine Ketones (Negative) mg/dL Ur Blood (Man) (Negative) Urine Nitrate (Negative) Urine Bilirubin (Negative) Urine Urobilinogen (<2.0) mg/dL Leukocyte Esterase Rfl (Negative) GARRETT/UL Urine RBC (0-2) /hpf Urine WBC (0-3) /hpf Ur Squamous Epith Cells (Few) /hpf Urine Bacteria /hpf Urine Casts Influenza A (RT-PCR) (Negative) Influenza B (RT-PCR) (Negative) RSV (RT-PCR) (Negative) SARS-CoV-2 RNA (RT-PCR) (Negative) Blood Type Antibody Screen 06/16/24 Range/Units 07:39 WBC (4.5-10.0) K/mm3 RBC (4.2-5.4) M/mm3 Hgb (12.0-15.0) g/dL Hct (37.0-47.0) % MCV (80-100) fl MCH (26-34) pg MCHC (32-36) g/dl RDW (11.5-14.5) % Plt Count (150-375) k/mm3 MPV (7.4-10.4) fl Immature Gran % (Auto) (0-0.5) % Neut % (Auto) (45.5-73.1) % Lymph % (Auto) (18.3-44.2) % [place] % (Auto) (2.6-8.5) % Eos % (Auto) (0-4.4) % Baso % (Auto) (0.2-1.2) % Lymph # (Auto) (0.9-3.2) K/mm3 [place] # (Auto) (0.1-0.6) K/mm3 Eos # (Auto) (0-0.3) K/mm3 Baso # (Auto) (0.0-0.1) K/mm3 Abs Immat Gran (auto) (0.00-0.031) K/mm3 Absolute Neuts (auto) (1.3-6.7) K/mm3 Absolute Nucleated RBC (0.0-0.012) K/mm3 Nucleated RBC % (0.0-0.2) % PT (11.1-14.7) Seconds INR APTT (22.3-36.8) Seconds Sodium (137-145) mmol/L Potassium (3.4-5.0) mmol/L Chloride (98-107) mmol/L Carbon Dioxide (22-30) mmol/L Anion Gap (4-12) mmol/L BUN (7-17) mg/dL Creatinine (0.7-1.0) mg/dL Estim Creat Clear Calc ml/min Estimated GFR (59 - ) Glucose (65-110) mg/dL POC Capillary Glucose 73 (65-105) mg/dl Calcium (8.4-10.2) mg/dL Magnesium (1.6-2.3) mg/dL Iron TIBC % Saturation Total Bilirubin (0.2-1.3) mg/dL AST (14-36) U/L ALT (6-35) U/L Alkaline Phosphatase (38-126) U/L NT-Pro-B Natriuret Pep (19.9-100) pg/mL Total Protein (6.3-8.2) g/dL Albumin (3.5-5.1) g/dL Lipase (23-300) U/L Vitamin B12 Folate TSH (0.465-4.680) uIU/mL Thyroxine (T4) (5.53-11.0) ug/dL Urine Color (Yellow) Urine Appearance (Clear) Urine pH (5.0-9.0) Ur Specific [place] (1.001-1.035) Urine Protein (Negative) mg/dL Urine Glucose (UA) (Negative) mg/dL Urine Ketones (Negative) mg/dL Ur Blood (Man) (Negative) Urine Nitrate (Negative) Urine Bilirubin (Negative) Urine Urobilinogen (<2.0) mg/dL Leukocyte Esterase Rfl (Negative) GARRETT/UL Urine RBC (0-2) /hpf Urine WBC (0-3) /hpf Ur Squamous Epith Cells (Few) /hpf Urine Bacteria /hpf Urine Casts Influenza A (RT-PCR) (Negative) Influenza B (RT-PCR) (Negative) RSV (RT-PCR) (Negative) SARS-CoV-2 RNA (RT-PCR) (Negative) Blood Type Antibody Screen Imaging Data Radiologist's impression: Impressions Abdomen/Pelvis CT 06/15/24 16:52 IMPRESSION: 1. No evidence of appendicitis, diverticulitis or intestinal obstruction. 2. Hyperdensity seen in the duodenal bulb. Upper GI endoscopy is advised. 3. Area of thickening in the sigmoid colon: Clinical correlation and follow-up advised. Chest X-Ray 06/15/24 18:44 IMPRESSION: Prominent markings with interstitial thickening in the lung bases which may indicate pneumonitis. Clinical correlation advised. Discharge Plan Discharge Clinical Impression: Gastroenteritis, Dark stools, OLIVE (acute kidney injury), Hypomagnesemia, Pneumonitis Patient Disposition: Still a Patient Condition: Stable
[2024-06-15 15:26] LABS: Influenza A QL RT-PCR Negative (Negative); Influenza B QL RT-PCR Negative (Negative); RSV RNA, RT-PCR Negative (Negative); SARS-CoV-2 RNA PCR Negative (Negative)
--- OUTSIDE RECORDS SUMMARY | 2024-06-15 15:43 | XMS_ITS | Continuity of Care Document ---
Demographics Address [address] [place] [address] Work Phone Mobile Phone Home Phone Email Address pt refused Portal 01/22 Phone Preferred Language en Marital Status Hindu Affiliation Unknown Race White Ethnic Group Not or Lati no Author Organization [employer] Address [address] [place] [address] Phone Care Team Providers Care Grip Assembler Name Role Phone Kiersten Pugh NP Unavailable [...] AND DIFFERENTIAL COMPREHEN METABOLIC PANEL [facility] 0 BRAIN NATRIURETIC PEPTIDE (BNP) 020 PROTHROMBIN TIME W/INR (PROTIME,PT) ROUTINE VENIPUNCTURE OFFICE WWNTA-EYL-EXPLYRAW BODY MASS INDEX DOCD SYST BP LT 130 MM HG DIAST BP < 80 MM HG CBC, INC PLATELETS AND DIFFERENTIAL COMPREHEN METABOLIC PANEL CMP 0 FERRITIN LEVEL IRON (FE), TOTAL TIBC, & % SATURATION PROTHROMBIN TIME W/INR (PROTIME,PT) ROUTINE VENIPUNCTURE OFFICE [id number]-RND-[id number] BODY MASS INDEX DOCD SYST BP LT 130 MM HG DIAST BP < 80 MM HG Pt inelig neg scrn depres CBC, INC PLATELETS AND DIFFERENTIAL COMPREHEN METABOLIC PANEL CMP 0 FERRITIN LEVEL PROTHROMBIN TIME W/INR (PROTIME,PT) ROUTINE VENIPUNCTURE MICROALBUMIN, QN (URINE) CREATININE, (U-R) OFFICE UNOHQ-JIY-KGTVDZIA BODY MASS INDEX DOCD SYST BP GE [...] screen annual Clin depression screen doc OFFICE [id number] PROTIME (PT) - OFFICE LAB ONLY 20 [...] STICK-COLLECTION OF CAPIL MIRIAM BLOOD SPECIMEN OFFICE VQBMY-XLC-[id number] BODY MASS INDEX DOCD SYST BP >= 140 MM HG6 IT DIAST BP < 80 MM HG Pt inelig neg scrn depres CBC, INC PLATELETS AND DIFFERENTIAL COMPREHEN METABOLIC PANEL CMP 0 HEMOGLOBIN A1C HGA1C, GLYCO PROTHROMBIN TIME W/INR (PROTIME,PT) VITAMIN B12 (SERUM) ROUTINE VENIPUNCTURE OFFICE [id number]-NDB-GGLDXQLP BODY MASS INDEX DOCD SYST BP LT [...] MED MERGE DSCHRG MED/CURRENT MED MERGE OFFICE UHTPL-GNG-[id number] BODY MASS INDEX DOCD SYST BP LT [...] (SERUM) VITAMIN D, 25-HYDROXY ROUTINE VENIPUNCTURE OFFICE KOFEB-XLI-OTZJIEHO BODY MASS INDEX DOCD SYST BP LT 130 MM HG DIAST BP < 80 MM HG PROTIME (PT) - OFFICE LAB ONLY 19 FINGER OR HEEL STICK-COLLECTION OF CAPIL MIRIAM BLOOD SPECIMEN OFFICE [id number]-FGQ-UCLHVQKJ BODY MASS INDEX DOCD SYST BP LT 130 MM HG DIAST BP < 80 MM HG PROTIME (PT) - OFFICE LAB ONLY 19 FINGER OR HEEL STICK-COLLECTION OF CAPIL MIRIAM BLOOD SPECIMEN OFFICE ZCLRO-YID-JDIPWJXY BODY MASS INDEX DOCD SYST BP LT 130 MM HG DIAST BP < 80 MM HG PROTIME (PT) - OFFICE LAB ONLY 19 FINGER OR HEEL STICK-COLLECTION OF CAPIL MIRIAM BLOOD SPECIMEN Advance Directives Directive Yes / No Effective Date File Name No Information Encounters Encounter Description Practice Location Reason(s) For Visit Diagnoses Date Provider Providers Copied on Encounter [facility], [address], [place], [place], [address] , tel: [phone] [facility] Internal Medicine No Information 1 Keaton Burch. [facility] [place], [address], [place]. [phone] [facility], [address], [place], [place], [address] , tel: [phone] [facility] Internal Medicine No Information 0 1 Christi Hayes. [address] [place], [place], [address], [place]. [phone] OFFICE ORYAY-YWY-BFT LUIS [facility], [address], [place], [place], [address] , tel:[phone] [facility] Internal Medicine Chronic Conditions (chief complaint) [...] onic obstructive airway disease 0 Keaton Burch. [address] [place] [address], [address], . tel:[phone] Referring Provider: Natalee Mchgee, [address] [place] [address], [address] . tel:[phone] [facility], [address], [place], [place], [address] , tel:[phone] [facility] Internal Medicine No Information 0 Yara Albright. [address] [place] [address], [id number], . tel:[phone] OFFICE IJKTV-PZN-EYS [facility], [address], [place], [place], [address] , tel:[phone] [facility] Medicine Chronic Conditions (chief complaint) [...] peripheral angiopathy without gangrene 0 Kena Dawson. [address] [place] [address], [id number], . tel:[phone] Referring Provider: Natalee Mcghee, [address] [place] [address], [address] . tel:[phone] [facility], [address], [place], [place], [address] , tel: [phone] [facility] Medicine Unspecified atrial flutterEssenti al (primary) hypertension Payam-2 0 Yara Albright. [address] [place] [address], [id number], [place]. tel:[phone] [facility], [address], [place], [place], [address] , tel: [phone] Care Management No Information Payam-0 0 Yara Albright. [address] [place] [address], [id number], . tel:[phone] OFFICE TWLDM-CRC-LQQ [facility], [address], [place], [place], [address] , [place] tel: [phone] [facility] Internal Medicine Chronic Conditions (chief complaint) [...] angiopathy without gangrene Payam-0 0 Yara Albright. [address] [place] [address], [id number], [place]. tel:[phone] Referring Provider: Natalee Mcghee, [address] [place] [address], [address] . tel:[phone] OFFICE AKAHL-BOA-NCT [facility], [address], [place], [place], [address] , [place] tel: [phone] [facility] Medicine Chronic Conditions (chief complaint) [...] yosteoarthriti s, unspecified July-0 0 Yara Albright. [address] [place] [address], [id number], . tel:[phone] Referring Provider: Natalee Mcghee, [address] [place] [address], [address] . tel:[phone] [facility], [address], [place], [place], [address] , tel: [phone] [facility] Presence of prosthetic heart valveMild cognitive impairmentLong term (current) use of anticoagulants Jun- 0 Gallo Pitts. [address] [facility], [address], [place], [address], [place]. tel:[phone] Referring Provider: Hong Holder, [address] [facility] [place] [address], [place], [address] . tel:[phone] [facility], [address], [place], [place], [address] , tel: [phone] [facility] Hypertensive heart disease with heart failure Jun-2 0 Gallo Pitts. [address] [facility], [address], [place], [address], [place]. [phone] [facility], [address], [place], [place], [address] , tel: [phone] [facility] Presence of prosthetic heart valveLong term (current) use of anticoagulants Apr-2 2-202 0 aGllo Pitts. [address], [address], [place], [address], . tel:[phone] Referring Provider: Hong Holder, [address], [address] . tel:[phone] [facility], [address], [place], [place], [address] , tel: [phone] [facility] No Information 0 Gallo Pitts. [address], [address], [place], [address], . tel:[phone] [facility], [address], [place], [place], [address] , tel: [phone] [facility] Presence of prosthetic heart valveLong term (current) use of anticoagulants 0 Gallo Pitts. [address], [address], [place], [address], [place]. [phone] Referring Provider: Hong Holder, [address], [address] . tel:[phone] [facility] [address], [place], [place], [address] , tel: [phone] [facility] Presence of prosthetic heart valveLong term (current) use of anticoagulants 0 Gallo Pitts. [address], [address], [place], [address], [place]. tel:[phone] Referring Provider: Hong Holder, [address], [address] . tel:[phone] [facility], [address], [place], [place], [address] , tel: [phone] [facility] Nurse Visit (chief complaint) Presence of prosthetic heart valveLong term (current) use of anticoagulants 0 Gallo Pitts. [address], [address], [place], [place], [address], [place]. tel:[phone] Referring Provider: Hong Holder, [address], [place], [address] . tel:[phone] OFFICE MSJVA-ISY-ZJV ANDED [facility], [address], [place], [place], [address] , tel: [phone] [facility] Sick (chief complaint)C hronic Conditions (chief complaint) Respiratory illnessEssenti al (primary) hypertension 0 0 Gallo Pitts. [address] [employer] , [address], [place], [place], [address], [place]. tel:[phone] Referring Provider: Hong Holder, [address], [place], [address] . tel:[phone] [facility], [address], [place], [place], [address] , tel: [phone] [facility] DizzinessNumbn essSyncope, unspecified syncope type 0 Gallo Pitts. [address] [employer] , [address], [place], [place], [address], [place]. tel:[phone] OFFICE FFOJT-QIG-OFO LUIS [facility], [address], [place], [place], [address] , tel: [phone] [facility] 3 month (chief complaint)C hronic Conditions (chief complaint) Body mass index (BMI) 31.0-31.9, adultPre-synco peChronic obstructive airway diseasePrimary hyperparathyro idismHypertens julien heart disease with heart failureArterio sclerosis of timbi-sha shoshone arteries of extremityType 2 diabetes mellitus with diabetic polyneuropathy Vitamin B12 deficiencyChro kaushik diastolic (congestive) heart failureAtheros clerosis of aortaMajor depressive disorder, single episode, in partial remissionParox ysmal atrial fibrillation 0 Gallo Pitts. [address] [employer] , [address], [place], [place], [address], [place]. tel:[phone] Referring Provider: Hong Holder, [address], [address] . tel:[phone] [facility] [address], [place], [place], [address] , tel: [phone] [facility] Presence of prosthetic heart valveLong term (current) use of anticoagulants 0 Gallo Pitts. [address] , [address], [place], [address], . tel:[phone] Referring Provider: Hong Holder, [address], [address] . tel:[phone] [facility] [address], [place], [place], [address] , tel: [phone] [facility] Presence of prosthetic heart valveLong term (current) use of anticoagulants Gallo Pitts. [address] , [address], [place], [address], [place]. tel:[phone] Referring Provider: Hong Holder, [address], [address] . tel:[phone] [facility] [address], [place], [address] , tel: [phone] Care Management Atrial fibrillation, unspecified type Gallo Pitts. [address] , [address], [place], [address], [place]. tel:[phone] Transitional Care- First [address] [facility] [address], [place], [place], [address] , tel: [phone] [facility] Hospital F/U (chief complaint) Body mass index (BMI) 32.0-32.9, adultAcute frontal sinusitis, recurrence not specifiedAtria l fibrillation, unspecified typeH/O prosthetic heart valve Gallo Pitts. [address] , [address], [place], [address], [place]. tel:[phone] Referring Provider: Hong Holder, [address], [address] . tel:[phone] [facility], [address], [place], [place], [address] , tel: [phone] Care Management No Information Gallo Pitts. [address], [place], [address], [place]. [phone] Referring Provider: Hong Holder, [address], [address] . tel:[phone] [facility], [address], [place], [place], [address] , tel: [phone] Care Management Chronic obstructive airway disease Dec- Gallo Pitts. [address], [address], [place], [address], [place]. [phone] Referring Provider: Hong Holder, [address], [address] . tel:[phone] OFFICE GHYRU-USM-SBL LUIS [facility], [address], [place], [place], [address] , tel: [phone] [facility] Hospital Follow Up (chief complaint) Obstructive sleep apnea (adult) (pediatric)Mem ory lossAdmenifeece care planningCerebr al atherosclerosi sMild cognitive impairment Dec- 9 Gallo Pitts. [address], [address], [place], [address], [place]. [phone] Referring Provider: Hong Holder, [address], [address] . tel:[phone] [employer] [facility], [address], [place], [place], [address] , tel: [phone] [facility] Presence of prosthetic heart valveLong term (current) use of anticoagulants Gallo Pitts. [address] , [address], [place], [place], [address], [place]. tel:[phone] Referring Provider: Hong Holder, [address], [place], [address] . tel:[phone] [facility], [address], [place], [place], [address] , tel: [phone] Care Management Presence of prosthetic heart valveLong term (current) use of anticoagulants Gallo Pitts. [address] , [address], [place], [address], [place]. tel:[phone] Referring Provider: Hong Holder, [address], [address] . tel:[phone] OFFICE JVGAQ-ZCH-TME LUIS [facility], [address], [place], [place], [address] , tel: [phone] [facility] 3 month follow up (chief complaint)C hronic Conditions (chief complaint) Benign neoplasm of parathyroid glandVitamin B12 deficiencyIron deficiency anemia, unspecifiedAcu te pain of left shoulder Gallo Ptits. [address], [address], [place], [place], [address], [place]. tel:[phone] Referring Provider: Hong Holder, [address], [address] . tel:[phone] [facility], [address], [place], [place], [address] , [place] tel: [phone] [facility] Presence of prosthetic heart valveLong term (current) use of anticoagulants Gallo Pitts. [address] , [address], [place], [place], [address], [place]. tel:[phone] Referring Provider: Hong Holder, [address], [address] . tel:[phone] [facility], [address], [place], [place], [address] , [place] tel: [phone] [facility] Chest pain, unspecified Gallo Pitts. [address] , [address], [place], [place], [address], [place]. tel:[phone] OFFICE POPZI-EUZ-YYI [facility], [address], [place], [place], [address] , [place] tel: [phone] Care Management SOB , DSOUZA and Weight Gain (chief complaint)C hronic Conditions (chief complaint) Body mass index (BMI) 31.0-31.9, adultNonintrac table headache, unspecified chronicity pattern, unspecified headache typeFinger swellingChroni c obstructive airway disease Gallo Pitts. [address] , [address], [place], [place], [address], [place]. tel:[phone] Referring Provider: Hong Holder, [address], [place], [address] . tel:[phone] OFFICE QDNDY-HYL-CBM [facility], [address], [place], [place], [address] , [place] tel: [phone] [facility] pain (chief complaint) Primary hyperparathyro idismBody mass index (BMI) 32.0-32.9, adultTrochante tessa bursitis of right hipRotator cuff arthropathy of left shoulder Gallo Pitts. [address] , [address], [place], [place], [address], [place]. tel:[phone] Referring Provider: Hong Holder, [address] [employer] [address], [place], [address] . tel:[phone] [facility], [address], [place], [place], [address] , tel: [phone] [facility] Presence of prosthetic heart valveLong term (current) use of anticoagulants Gallo Pitts. [address] , [address], [place], [place], [address], . tel:[phone] Referring Provider: Hong Holder, [address] [facility] [place] [address], [place], [address] . tel:[phone] [facility], [address], [place], [place], [address] , tel: [phone] [facility] Chronic Conditions (chief complaint)h eadache (chief complaint)r t thumb frx (chief complaint) Paroxysmal atrial fibrillationCh ronic diastolic (congestive) heart failureHyperte nsive heart disease with heart failureHyperli pidemia, unspecifiedArt eriosclerosis of timbi-sha shoshone arteries of extremityMajor depressive disorder, single episode, in partial remissionGastr o-esophageal reflux disease without esophagitisTyp e 2 diabetes mellitus with diabetic polyneuropathy Atherosclerosi s of aortaBody mass index (BMI) 32.0-32.9, adultDysphagia , unspecifiedTen niko headacheOther nonthrombocyto penic purpuraClosed nondisplaced fracture of distal phalanx of right thumb with routine healing, subsequent encounter Gallo Pitts. [address] [facility], [place], [address], [place], [place], [address], . tel:[phone] Referring Provider: Hong Holder, [address] [facility], [place] [address], [place], [address] . tel:[phone] [facility], [address], [place], [place], [address] , tel: [phone] [facility] Presence of prosthetic heart valveLong term (current) use of anticoagulants Gallo Pitts. [address] [facility], [place], [address], [place], [address], [place]. tel:[phone] Referring Provider: Hong Holder, [address] [facility], [place] [address], [place], [address] . tel:[phone] [facility], [address], [place], [place], [address] , tel: [phone] [facility] Sprain of right thumb, unspecified site of finger, initial encounterPrese nce of prosthetic heart valveLong term (current) use of anticoagulants Gallo Pitts. [address] , [address], [place], [place], [address], . tel:[phone] Referring Provider: Hong Holder, [address], [place], [address] . tel:[phone] [employer], [address], [place], [place], [address] , [place] tel: [phone] [facility] Encounter for exam of blood pressure w/o abnormal findingsPresen ce of prosthetic heart valveLong term (current) use of anticoagulants Gallo Pitts. [address] , [address], [place], [place], [address], [place]. tel:[phone] Referring Provider: Hong Holder, [address], [place], [address] . tel:[phone] [employer] [facility], [address], [place], [place], [address] , [place] tel: [phone] [facility] Chronic obstructive airway disease Gallo Pitts. [address] , [address], [place], [address], [place]. tel:[phone] Referring Provider: Hong Holder, [address], [place], [address] . tel:[phone] [employer], [address], [place], [place], [address] , [place] tel: [phone] [facility] Lung diseaseHyperte nsive heart disease with heart failureDysphag ia, unspecifiedRig ht foot pain 9 Gallo Pitts. [address], [address], [place], [address], [place]. tel:[phone] Referring Provider: Hong Holder, [address], [place], [address] . tel:[phone] [facility], [address], [place], [place], [address] , tel: [phone] [facility] Abnormal PFT 9 Gallo Pitts. [address] [facility], [address], [place], [place], [address], [place]. tel:[phone] [facility], [address], [place], [place], [address] , tel: [phone] [facility] Presence of prosthetic heart valveLong term (current) use of anticoagulants Gallo Pitts. [address] [facility], [address], [place], [place], [address], [place]. tel:[phone] Referring Provider: Hong Holder, [address] [facility] [address], [place], [address] . tel:[phone] [facility], [address], [place], [place], [address] , tel: [phone] [facility] Paroxysmal atrial fibrillationAg e-related osteoporosis without current pathological fractureMorbid (severe) obesity due to excess caloriesChroni c diastolic (congestive) heart failureHyperte nsive heart disease with heart failureHyperli pidemia, unspecifiedTyp e 2 diabetes mellitus with diabetic peripheral angiopathy without gangreneMajor depressive disorder, single episode, in partial remissionArter iosclerosis of timbi-sha shoshone arteries of extremityGastr o-esophageal reflux disease without esophagitisTyp e 2 diabetes mellitus with diabetic polyneuropathy Atherosclerosi s of aortaPresence of prosthetic heart valve Gallo Pitts. [address] [facility], [address], [place], [place], [address], . tel:[phone] [employer], [address], [place], [place], [address] , tel: [phone] [facility] SOB (shortness of breath) on exertion Gallo Pitts. [address] , [address], [place], [place], [address], [place]. tel:[phone] [facility], [address], [place], [place], [address] , tel: [phone] [facility] Presence of prosthetic heart valveLong term (current) use of anticoagulants 9 Gallo Pitts. [address] , [address], [place], [place], [address], [place]. tel:[phone] Referring Provider: Hong Holder, [address] [facility] [address], [place], [address] . tel:[phone] [facility], [address], [place], [place], [address] , tel: [phone] [facility] Acute pain of left shoulder 9 Gallo Pitts. [address] , [address], [place], [address], [place]. tel:[phone] [employer], [address], [place], [place], [address] , [place] tel: [phone] [facility] Acute pain of left shoulderFall, subsequent encounterCoccy dynia 9 Gallo Pitts. [address] , [address], [place], [place], [address], [place]. tel:[phone] Referring Provider: Hong Holder, [address] [facility] [address], [address] . tel:[phone] [facility], [address], [place], [place], [address] , [place] tel: [phone] [facility] Obstructive sleep apneaShortness of breath 8 Gallo Pitts. [address] , [address], [place], [address], [place]. tel:[phone] Referring Provider: Hong Holder, [address] [facility] [address], [address] . tel:[phone] [facility], [address], [place], [place], [address] , tel: [phone] [facility] Presence of prosthetic heart valveLong term (current) use of anticoagulants 8 Gallo Pitts. [address] [facility], [address], [place], [address], [place]. tel:[phone] Referring Provider: Hong Holder, [address] [facility] [address], [address] . tel:[phone] [facility], [address], [place], [place], [address] , tel: [phone] [facility] Paroxysmal atrial fibrillationAg e-related osteoporosis without current pathological fractureBenign neoplasm of parathyroid gland Gallo Pitts. [address] [employer] , [address], [place], [address], . tel:[phone] Referring Provider: Hong Holder, [address] [facility] [address], [place], [address] . tel:[phone] [facility], [address], [place], [place], [address] , tel: [phone] [facility] Presence of prosthetic heart valveLong term (current) use of anticoagulants Gallo Pitts. [address] [facility], [address], [place], [address], [place]. tel:[phone] Referring Provider: Hong Holder, [address] [employer] [address] [address], [address] . tel:[phone] [facility], [address], [place], [place], [address] , tel: [phone] [facility] Anemia, unspecifiedPre sence of prosthetic heart valveLong term (current) use of anticoagulants Diverticulitis 8 Gallo Pitts. [address] [facility] [address], [address], [place], [address], [place]. tel:[phone] Referring Provider: Hong Holder, [address], [place], [address] . tel:[phone] [facility], [address], [place], [place], [address] , [place] tel: [phone] [place] [facility] Lower abdominal painDiarrhea, unspecified type 8 Gallo Pitts. [address], [address], [place], [place], [address], [place]. tel:[phone] [facility], [address], [place], [place], [address] , [place] tel: [phone] [place] [facility] Anemia, unspecifiedDiv erticulitis 8 Gallo Pitts. [address], [address], [place], [place], [address], [place]. tel:[phone] [facility], [address], [place], [place], [address] , [place] tel: [phone] [place] [facility] Diverticulitis 8 Gallo Pitts. [address] [facility] [address], [address], [place], [place], [address], [place]. tel:[phone] Referring Provider: Hong Holder, [address] [facility] [address], [place], [address] . tel:[phone] [facility], [address], [place], [place], [address] , [place] tel: [phone] [facility] [place] [facility] Wedge compression fracture of unsp thor vertebra, sequelaDiverti culitis 8 Gallo Pitts. [address] [facility] [address], [address], [place], [place], [address], [place]. tel:[phone] Referring Provider: Hong Holder, [address] [facility] [address], [place], [address] . tel:[phone] [facility], [address], [place], [place], [address] , [place] tel: [phone] [facility] [place] [facility] Chronic diastolic (congestive) heart failureUnspeci fied atrial flutterMorbid (severe) obesity due to excess caloriesWedge compression fracture of unsp thor vertebra, sequela Gallo Pitts. [address] , [address], [place], [address], [place]. tel:[phone] Referring Provider: oHng Holder, [address] [facility] [address], [place], [address] . tel:[phone] [facility], [address], [place], [place], [address] , [place] tel: [phone] [facility] Presence of prosthetic heart valveLong term (current) use of anticoagulants Gallo Pitts. [address] , [address], [place], [address], [place]. tel:[phone] Referring Provider: Hong Holder, [address] [facility] [address], [address] . tel:[phone] [facility], [address], [place], [place], [address] , [place] tel: [phone] [facility] Vitamin B12 deficiencyPres ence of prosthetic heart valveLong term (current) use of anticoagulants Gallo Pitts. [address] , [address], [place], [address], [place]. tel:[phone] Referring Provider: Hong Holder, [address] [facility] [address], [address] . tel:[phone] [facility], [address], [place], [place], [address] , [place] tel: [phone] [facility] No Information Gallo Pitts. [address] , [address], [place], [address], [place]. tel:[phone] [facility], [address], [place], [place], [address] , [place] tel: [phone] [facility] [place] [facility] Vitamin B12 deficiency Aug-0 Gallo Pitts. [address], [address], [place], [address], . tel:[phone] Referring Provider: Hong Holder, [address], [place], [address] . tel:[phone] [facility], [address], [place], [place], [address] , tel: [phone] [facility] [place] [facility] Presence of prosthetic heart valveLong term (current) use of anticoagulants Anemia, unspecified July- Gallo Pitts. [address], [address], [place], [address], . tel:[phone] Referring Provider: Hong Holder, [address], [address] . tel:[phone] [facility], [address], [place], [place], [address] , tel: [phone] [facility] [place] [facility] Hypertensive heart disease with heart failureAnemia, unspecified Gallo Pitts. [address], [address], [place], [address], [place]. tel:[phone] Referring Provider: Hong Holder, [address], [address] . tel:[phone] [facility], [address], [place], [place], [address] , tel: [phone] [facility] [place] [facility] Presence of prosthetic heart valveLong term (current) use of anticoagulants Gallo Pitts. [address], [address], [place], [address], [place]. tel:[phone] Referring Provider: Hong Holder, [address], [place], [address] . tel:[phone] [facility], [address], [place], [place], [address] , tel: [phone] [facility] Presence of prosthetic heart valveLong term (current) use of anticoagulants 8 Gallo Pitts. [address] [facility], [address], [place], [place], [address], [place]. tel:[phone] Referring Provider: Hong Holder, [address] [facility] [address], [place], [address] . tel:[phone] [facility], [address], [place], [place], [address] , tel: [phone] [facility] Lumbar spondylosisSho rtness of breath 8 Gallo Pitts. [address] [employer] , [address], [place], [place], [address], [place]. [phone] Referring Provider: Hong Holder, [address] [employer] [address], [place], [address] . tel:[phone] [facility], [address], [place], [place], [address] , [place] tel: [phone] [facility] Major depressive disorder, single episode, in partial remissionPrima ry hyperparathyro idismGastro-es ophageal reflux disease without esophagitisCer ebral atherosclerosi sHyperlipidemi a, unspecifiedArt eriosclerosis of [place]osh[place] arteries of extremityType 2 diabetes mellitus with diabetic peripheral angiopathy without gangreneScreen ing for osteoporosisPa roxysmal atrial fibrillationLo ng term (current) use of anticoagulants Presence of prosthetic heart valvePost-halima pausal 0 8 Gallo Pitts. [address] [employer] [address], [address], [place], [place], [address], [place]. [phone] Referring Provider: Hong Holder, [address] [employer] [address], [place], [address] . tel:[phone] [facility], [address], [place], [place], [address] , tel: [phone] [facility] Presence of prosthetic heart valveLong term (current) use of anticoagulants Jun-2 8 Gallo Pitts. [address] [facility] [address], [address], [place], [address], . tel:[phone] Referring Provider: Hong Holder, [address] [facility] [address], [place], [address] . tel:[phone] [facility], [address], [place], [place], [address] , tel: [phone] [facility] [place] [facility] Hypertensive heart disease with heart failure Jun-2 8 Gallo Pitts. [address] [facility] [address], [address], [place], [address], [place]. tel:[phone] Referring Provider: Hong Holder, [address] [facility] [address], [address] . 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 [address] [facility] [address], [address], [place], [address], [place]. tel:[phone] Referring Provider: Hong Holder, [address] [facility] [address], [address] . tel:[phone] [facility], [address], [place], [place], [address] , tel: [phone] [facility] [place] [facility] Type 2 diabetes mellitus with diabetic polyneuropathy Body mass index (BMI) 40.0-44.9, adult Mar-0 2- 8 Micha Jaylyn. [address], [address]. tel:[phone] Referring Provider: Hong Holder, [address] [employer] [address], [address] . tel:[phone] [facility], [address], [place], [place], [address] , [place] tel: [phone] [facility] Encntr screen mammogram for malignant neoplasm of breast 8 Gallo Pitts. [address], [address], [place], [place], [address], [place]. tel:[phone] [facility], [address], [place], [place], [address] , tel: [phone] [facility] [place] [facility] Low back pain 8 Gallo Pitts. [address], [address], [place], [place], [address], [place]. tel:[phone] [facility], [address], [place], [place], [address] , tel: [phone] [facility] [place] [facility] Presence of prosthetic heart valveLong term (current) use of anticoagulants Gallo Pitts. [address] , [address], [place], [place], [address], [place]. tel:[phone] Referring Provider: Hong Holder, [address], [place], [address] . tel:[phone] [facility], [address], [place], [place], [address] , tel: [phone] [facility] [place] [facility] halfway (current) use of anticoagulants Presence of prosthetic heart valve 8 Gallo Pitts. [address] , [address], [place], [place], [address], [place]. tel:[phone] Referring Provider: Hong Holder, [address] [facility] [address], [place], [address] . tel:[phone] [facility], [address], [place], [place], [address] , [place] tel: [phone] [facility] [place] [facility] Osteoporosis, unspecified osteoporosis type, unspecified pathological fracture presence 8 Demetrius Schilling. [address], [address], [place], [place], [address]. tel:[phone] [facility], [address], [place], [place], [address] , tel: [phone] [facility] Low back painAtheroscle rosis of aortaPolymyalg ia rheumaticaHear t failure, unspecifiedTyp e 2 diabetes mellitus with diabetic polyneuropathy Morbid (severe) obesity due to excess calories Gallo Pitts. [address] [employer] , [address], [place], [place], [address], [place]. tel:[phone] Referring Provider: Hong Holder, [address] [facility] [address], [place], [address] . tel:[phone] [facility], [address], [place], [place], [address] , tel: [phone] [facility] halfway (current) use of anticoagulants Presence of prosthetic heart valve Gallo Pitts. [address] [facility] [address], [address], [place], [place], [address], [place]. tel:[phone] Referring Provider: Hong Holder, [address] [facility] [address], [place], [address] . tel:[phone] [facility] [address], [place], [place], [address] , tel: [phone] [facility] Presence of prosthetic heart valveLong term (current) use of anticoagulants Gallo Pitts. [address] [employer] [address], [address], [place], [place], [address], [place]. tel:[phone] Referring Provider: Hong Holder, [address] [facility] [address], [address] . tel:[phone] [facility] [address], [place], [place], [address] , tel: [phone] [facility] Strain of lumbar region, subsequent encounter Gallo Pitts. [address] [employer], [address], [place], [address], . tel:[phone] Referring Provider: Hong Holder, [address], [place], [address] . tel:[phone] 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 [address], [address], [place], [address], [place]. tel:[phone] Referring Provider: Hong Holder, [address], [address] . tel:[phone] 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 [address], [address], [place], [address], [place]. tel:[phone] Referring Provider: Hong Holder, [address], [address] . tel:[phone] [facility] [address], [place], [place], [address] , tel: [phone] [facility] [place] [facility] Polymyalgia rheumaticaHear t failure, unspecifiedArt eriosclerosis of [place] arteries of extremityType 2 diabetes mellitus with diabetic peripheral angiopathy without gangreneAthero sclerosis of aortaMorbid (severe) obesity due to excess caloriesEncntr screen mammogram for malignant neoplasm of breastLong term (current) use of anticoagulants Presence of prosthetic heart valveHyperlipi demia, unspecifiedCer ebral atherosclerosi sGastro-esopha geal reflux disease without esophagitis Gallo Pitts. [address], [address], [place], [address], [place]. tel:[phone] Referring Provider: Hong Holder [address], [address] . tel:[phone] [facility], [address], [place], [place], [address] , tel: [phone] [facility] Knee pain, unspecified chronicity, unspecified laterality 7 Gallo Pitts. [address], [address], [place], [address], [place]. tel:[phone] [facility], [address], [place], [place], [address] , [place] tel: [phone] [facility] [place] [facility] halfway (current) use of anticoagulants Presence of prosthetic heart valve Gallo Pitts. [address], [address], [place], [address], [place]. tel:[phone] Referring Provider: Hong Holder, [address], [address] . tel:[phone] [facility], [address], [place], [place], [address] , [place] tel: [phone] [facility] [place] [facility] Iron deficiency anemia, unspecified iron deficiency anemia type Gallo Pitts. [address], [address], [place], [address], [place]. 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 [address], [address], [place], [address], [place]. tel:[phone] Referring Provider: Hong Holder, [address], [address] . tel:[phone] [facility], [address], [place], [place], [address] , [place] tel: [phone] [facility] Iron deficiency anemia, unspecified iron deficiency anemia type Aug- Gallo Pitts. [address], [address], [place], [place], [address], [place]. tel:[phone] [employer], [address], [place], [place], [address] , tel: [phone] [facility] [place] [facility] Anemia, unspecified Gallo Pitts. [address], [address], [place], [place], [address], [place]. tel:[phone] Referring Provider: Hong Holder, [address], [place], [address] . tel:[phone] [employer], [address], [place], [place], [address] , [place] tel: [phone] [facility] [place] [facility] Presence of prosthetic heart valveLong term current use of anticoagulant therapyAnemia, unspecified Gallo Pitts. [address], [place], [place], [address], [place]. tel:[phone] [employer], [address], [place], [place], [address] , tel: [phone] [facility] Type 2 diabetes mellitus with polyneuropathy Demetrius Schilling. [address], [address], [place], [place], [address]. tel:[phone] [employer], [address], [place], [place], [address] , [place] tel: [phone] [facility] Shortness of breathPolymyal carmen rheumaticaPres ence of prosthetic heart valvePrimary hyperparathyro idismMajor depressive disorder, single episode, in partial remission Gallo Pitts. [address], [address], [place], [place], [address], [place]. tel:[phone] Referring Provider: Hong Holder, [address], [address] . tel:[phone] [facility], [address], [place], [place], [address] , tel: [phone] [facility] Dizziness and giddinessPolym yalgia rheumatica Gallo Pitts. [address], [address], [place], [address], . tel:[phone] Referring Provider: Hong Holder, [address], [place], [address] . tel:[phone] [facility], [address], [place], [place], [address] , tel: [phone] [facility] MyalgiaBilater al shoulder pain, unspecified chronicity Gallo Pitts. [address] , [address], [place], [address], . tel:[phone] Referring Provider: Hong Holder, [address], [address] . tel:[phone] [facility], [address], [place], [place], [address] , tel: [phone] [facility] H/O mechanical aortic valve replacementLon g term current use of anticoagulant therapy Gallo Pitts. [address] , [address], [place], [address], [place]. tel:[phone] Referring Provider: Hong Holder, [address], [address] . tel:[phone] [facility], [address], [place], [place], [address] , tel: [phone] [facility] H/O mechanical aortic valve replacementLon g term current use of anticoagulant therapy Gallo Pitts. [address], [address], [place], [address], [place]. tel:[phone] Referring Provider: Hong Holder, [address], [place], [address] . tel:[phone] [facility] [address], [place], [place], [address] , tel: [phone] [facility] [place] [facility] Bilateral arm painBilateral shoulder pain, unspecified chronicity Jun-2 4-201 7 Gallo Pitts. [address], [address], [place], [address], [place]. [phone] Referring Provider: Hong oHlder, [address], [address] . tel:[phone] [facility] [address], [place], [place], [address] , tel: [phone] [facility] [place] [facility] Bilateral leg cramps Jun-2 0- 7 Gallo Pitts. [address], [address], [place], [address], [place]. tel:[phone] Referring Provider: Hong Holder, [address], [address] . tel:[phone] [facility] [address], [place], [place], [address] , tel: [phone] [facility] [place] [facility] H/O mechanical aortic valve replacementLon g term current use of anticoagulant therapy May-3 0-201 7 Gallo Pitts. [address], [address], [place], [address], [place]. [phone] Referring Provider: Hong Holder, [address], [address] . tel:[phone] [facility] [address], [place], [place], [address] , tel: [phone] [facility] [place] [facility] H/O mechanical aortic valve replacementLon g term current use of anticoagulant therapy May-2 3-201 7 Gallo Pitts. [address], [place], [place], [address], [place]. [phone] Referring Provider: Hong Holder, [address], [place], [address] . tel:[phone] [facility], [address], [place], [place], [address] , tel: [phone] [facility] [place] [facility] H/O mechanical aortic valve replacementLon g term current use of anticoagulant therapy 7 Gallo Pitts. [address], [place], [place], [address], [place]. tel:[phone] Referring Provider: Hong Holder, [address], [place], [address] . tel:[phone] [facility], [address], [place], [place], [address] , [place] tel: [phone] [facility] [place] [facility] Neck painH/O mechanical aortic valve replacement 7 Gallo Pitts. [address], [place], [place], [address], [place]. tel:[phone] [facility], [address], [place], [place], [address] , [place] tel: [phone] [facility] [place] [facility] Acute non-recurrent sinusitis, unspecified location 7 Gallo Pitts. [address], [address], [place], [place], [address], [place]. tel:[phone] Referring Provider: Hong Holder, [address], [place], [address] . tel:[phone] [facility], [address], [place], [place], [address] , [place] tel: [phone] [facility] [place] [facility] H/O mechanical aortic valve replacementLon g term current use of anticoagulant therapy 0 7 Gallo Pitts. [address], [address], [place], [address], [place]. [phone] Referring Provider: Hong Holder, [address] [employer] [address], [place], [address] . tel:[phone] [facility], [address], [place], [place], [address] , tel: [phone] [facility] [place] [facility] Type 2 diabetes mellitus with polyneuropathy Hammer toe of left footAcute bilateral low back pain without sciatica 7 Gallo Pitts. [address], [place], [place], [address], [place]. tel:[phone] Referring Provider: Hong Holder, [address] [employer] [address], [place], [address] . tel:[phone] [facility], [address], [place], [place], [address] , tel: [phone] [facility] [place] [facility] Obstructive sleep apnea 0 6 Gallo Pitts. [address] [employer] [address], [address], [place], [place], [address], [place]. tel:[phone] [facility], [address], [place], [place], [address] , tel: [phone] [facility] [place] [facility] Major depressive disorder, single episode, in partial remissionH/O mechanical aortic valve replacementTyp e 2 diabetes mellitus with polyneuropathy 6 Gallo Pitts. [address] [employer], [address], [place], [place], [address], [place]. tel:[phone] Referring Provider: Hong Holder, [address] [employer] [address], [place], [address] . tel:[phone] [facility], [address], [place], [place], [address] , tel: [phone] [facility] [place] [facility] Complicated griefDisappear ance and of family memberMajor depressive disorder, single episode, in partial remission 2-201 6 Gallo Pitts. [address] [employer], [place], [place], [address], [place]. tel:[phone] [facility], [address], [place], [place], [address] , [place] tel: [phone] [facility] No Information 6 Gallo Pitts. [address] [facility] [address], [address], [place], [place], [address], [place]. tel:[phone] Referring Provider: Maria T Ramon, [address], [place], [address] . tel:[phone] [facility] [employer], [address], [place], [place], [address] , [place] tel: [phone] [facility] Complicated griefDisappear ance and of family memberNeck pain 6 Gallo Pitts. [address] [employer], [address], [place], [place], [address], [place]. tel:[phone] Referring Provider: Hong Holder, [address] [facility] [address], [place], [address] . tel:[phone] [employer], [address], [place], [place], [address] , [place] tel: [phone] [facility] Atherosclerosi s of aorta 6 Gallo Pitts. [address] [employer], [address], [place], [place], [address], [place]. tel:[phone] Referring Provider: Hong Holder, [address] [employer], [place], [address] . tel:[phone] [facility], [address], [place], [place], [address] , [place] tel: [phone] [facility] Tear of right rotator cuff, unspecified tear extent 6 Gallo Pitts. [address] [employer] [address], [address], [place], [place], [address], [place]. tel:[phone] [facility], [address], [place], [place], [address] , tel: [phone] [facility] Type 2 diabetes mellitus with polyneuropathy Chronic right shoulder pain 3 6 Gallo Pitts. [address] , [address], [place], [place], [address], . tel:[phone] Referring Provider: Hong Holder, [address], [place], [address] . tel:[phone] [facility], [address], [place], [place], [address] , tel: [phone] [facility] H/O mechanical aortic valve replacementLon g term current use of anticoagulant therapy 0 6 Gallo Pitts. [address], [address], [place], [address], . tel:[phone] Referring Provider: Hong Holder, [address], [address] . tel:[phone] [facility], [address], [place], [place], [address] , tel: [phone] [place] [facility] H/O mechanical aortic valve replacementLon g term current use of anticoagulant therapy 6 Gallo Pitts. [address] , [address], [place], [place], [address], . tel:[phone] Referring Provider: Hong Holder, [address], [place], [address] . tel:[phone] [facility], [address], [place], [place], [address] , tel: [phone] [place] [facility] Dyspnea on effort 6 Gallo Pitts. [address], [address], [place], [address], . tel:[phone] [facility], [address], [place], [place], [address] , tel: [phone] [place] [facility] H/O mechanical aortic valve replacementLon g term current use of anticoagulant therapy 3 6 Gallo Pitts. [address], [place], [place], [address], [place]. [phone] Referring Provider: Hong Holder, [address], [place], [address] . tel:[phone] [facility], [address], [place], [place], [address] , [place] tel: [phone] [place] [facility] Neck painBilateral shoulder pain, unspecified chronicityPain in left shoulder 6 Gallo Pitts. [address], [place], [place], [address], [place]. tel:[phone] [facility], [address], [place], [place], [address] , [place] tel: [phone] [place] [facility] H/O mechanical aortic valve replacementLon g term current use of anticoagulant therapy 6 Gallo Pitts. [address], [place], [address], [place]. tel:[phone] Referring Provider: Hong Holder, [address], [place], [address] . tel:[phone] [facility], [address], [place], [place], [address] , [place] tel: [phone] [place] [facility] H/O mechanical aortic valve replacementLon g term current use of anticoagulant therapy 6 Gallo Pitts. [address], [address], [place]. tel:[phone] Referring Provider: Hong Holder, [address], [address] . tel:[phone] [facility], [address], [place], [place], [address] , [place] tel: [phone] [place] [facility] H/O mechanical aortic valve replacementLon g term current use of anticoagulant therapy 6 Gallo Pitts. [address], [place], [place], [address], [place]. tel:[phone] Referring Provider: Hong Holder, [address], [place], [address] . tel:[phone] [facility], [address], [place], [place], [address] , tel: [phone] [place] [facility] Encounter for immunizationNe ck painH/O mechanical aortic valve replacementChr onic kidney disease, stage 1 6 Gallo Pitts. [address], [place], [place], [address], [place]. tel:[phone] Referring Provider: Hong Holder, [address], [place], [address] . tel:[phone] [facility], [address], [place], [place], [address] , [place] tel: [phone] [place] [facility] Chest pain, unspecified 6 Gallo Pitts. [address], [place], [place], [address], [place]. tel:[phone] [facility], [address], [place], [place], [address] , tel: [phone] [place] [facility] H/O mechanical aortic valve replacementLon g term current use of anticoagulant therapy 6 Gallo Pitts. [address], [place], [place], [address], [place]. tel:[phone] [facility], [address], [place], [place], [address] , [place] tel: [phone] [place] [facility] Chronic kidney disease, stage 1Type 2 diabetes mellitus with polyneuropathy Nonintractable headache, unspecified chronicity pattern, unspecified headache type 6 Gallo Pitts. [address], [place], [place], [address], [place]. [phone] Referring Provider: Hong Holder, [address], [place], [address] . tel:[phone] [facility], [address], [place], [place], [address] , tel: [phone] [facility] H/O mechanical aortic valve replacement 6 Gallo Pitts. [address], [place], [place], [address], [place]. tel:[phone] Referring Provider: Hong Holder, [address], [place], [address] . tel:[phone] [facility], [address], [place], [place], [address] , tel: [phone] [place] [facility] Morbid obesity, unspecified obesity typeType 2 diabetes mellitus with stage 1 chronic kidney diseaseChronic kidney disease, stage 1Type 2 diabetes mellitus with polyneuropathy H/O mechanical aortic valve replacementMaj or depressive disorder, single episode, in partial remissionGERD without esophagitisPri valentina osteoarthritis involving multiple joints 6 Gallo Pitts. [address], [place], [address], [place]. tel:[phone] Referring Provider: Hong Holder, [address], [address] . tel:[phone] [facility], [address], [place], [place], [address] , tel: [phone] [place] [facility] Aortic valve replaced 6 Gallo Pitts. [address], [place], [address], [place]. tel:[phone] Referring Provider: Hong Holder, [address], [place], [address] . tel:[phone] [facility], [address], [place], [place], [address] , tel: [phone] [facility] Aortic valve replaced 6 Gallo Pitts. [address], [place], [place], [address], [place]. [phone] Referring Provider: Hong Holder, [address], [place], [address] . tel:[phone] Family History Family Member Type Diagnosis Age [...] er Payers Payer name Insurance type Covered republican ID Authoriza tion(s) Press About Us HEALTHPLAN MB [id number] Press About Us [employer] Operation and Maintenance MB [id number] Press About Us [employer] Operation and Maintenance MB [id number] [employer] AppsPLAN MB [id number] [employer] MB [id number] Hitpost MB [id number] Hitpost MB [id number] Hitpost MB [id number] Social History Type Description Quantity Date Captured [...] 09/08/2019 ordered Referral Referred To: Home Care [id number] Ordered: Referrals: Home Care. Location: [facility]. Evaluation/diagnostic/treatment - Level 3 ordered Referral Referred To: [address]
[facility] [address] [place], [phone] Ordered: MRI brain wo contrast ordered Referral Referred To: Service CPAP equipment Ordered: Referrals: Service CPAP equipment ordered Referral Referred To: Maurice Paredes [address] [facility] [address] [place], [place], [phone] Ordered: Referrals: Cardiology. Maurice Paredes. Evaluation/diagnostic/treatment - Level 3 ordered Referral Referred To: [facility] [address] [place], [phone] Ordered: Modified barium swallow ordered History Of [...] intake. Hospital F/U Patient was seen at [facility] due to irregular heartbeat Patient felt she [...] Follow Up Patient was t reated at [facility] for atrial fibrillation with RVR and was discharged on December. She saw a vehicle maintenance technician in the hospital. She is having progressive memory problems. This has come to the attention of her vehicle maintenance technician. She is managing her own affairs. She [...] follow up Here for a 3 m [facility] follow up. Patient states her shoulders have [...] patient also c/o pain in the right oriental orthodox. she denies jaw claudication. She has no [...] Colace to the pharmacy.Information was provided regarding [id number] benefits through [employer] to help with coverage.Please call the office [...] will check your INR today Related to technician terminal and repeater (current) use of anticoagulants Medication managemen t has significantly improved.We are also happy to hear family is visiting quite often.Continue to use your pill transit planner and call the office with any [...] failure we monitor this thro [facility] labs. Make sure you are drinking plenty [...] cbc pt/inr to be checked Related to technician terminal and repeater (current) use of anticoagulants labs will be [...] without behavioral disturbance see above Related to technician terminal and repeater (current) use of anticoagulants keep scheduled follo w up with the CardiologistINR checked today and will be managed by our office Related to Presence of prosthetic heart valve we monitor this thro [facility] labs. Make sure you are drinking plenty [...] vascular claudication symptoms. 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 Related to Atrial fibrillation, unspecified type I [...] sister would serve as your power of ip attorney for nam care decisions. You NEED [...] with atorvastatin. 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 Related t [...]
--- OUTSIDE RECORDS SUMMARY | 2024-06-15 15:43 | XMS_ITS | Encounter Summary ---
Author Organization [facility] Address [address] [place] [address] Care Team Providers Care Wood Preparation Supervisor Name Role Phone Casey Johnson RN Unavailable [phone] Sanjeev Webster DO Primary Care Provider + Reason for Visit * Reason Onset Date Comments Care Management 06/15/2024 Encounter Details Date Type Department Care Team (Late st Contact Info) Description 06/15/2024 Patient Outreach [facility] Family & Internal Medicine [address] [address] Casey Johnson, RN [address] [place], [place] [address] Care Management Social History Tobacco Use Types [...] Recorded Patient Health Questionnaire-2 Score 0 05/03/2024 [facility] [...] Sex Assigned at Female 05/03/2024 10:53 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 Patient wondering if the Fosamax making her [...] stated her sister is taking her to [facility]. Patient stated she really appreciates CC calling and always following up with her. Plan of Care: care team coordinator scheduler will continue to follow up by phone, provide resources when needed, educate on disease management, and assess chronic conditions. Upcoming Visit Appointments: Future Appointments Date Time Provider Department Center 07/04/2024 3:20 PM Sanjeev Webster DO [id number] Quality care gaps: Health Maintenance [...] Pneumococcal Vaccine: 65+ Years Completed PHQ-2 (Physician [place]) Completed Meningococcal Vaccine Aged Out Meningococcal B Vaccine Aged Out RSV Immunizations Under 20 Months Aged Out Problem List: Patient Active Problem List Diagnosis Abnormal stress test Chronic anticoagulation Coronary artery disease involving c[place] coronary artery of [place] heart without angina pectoris H/O mechanical aortic valve replacement Hypertensive heart disease with congestive heart failure ([facility]) LBBB (left bundle branch block) Myopathy VAZQUEZ (obstructive sleep apnea) Paroxysmal atrial flutter ([facility]) Benign hypertension with CKD (chronic kidney disease) stage III ([facility]) Memory deficits Hearing deficit, bilateral History of cataract extraction, unspecified laterality Vitamin D deficiency Hypercalcemia Chronic frontal sinusitis Constipation, unspecified constipation type Chronic bilateral low back pain without sciatica Iron deficiency anemia, unspecified iron deficiency anemia type Disorder of skin of trunk Anemia Body mass index (BMI) 31.0-31.9, adult 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[facility]) Benign hypertension with stage 3b chronic kidney disease ([facility]) Cobalamin deficiency Compression fracture of thoracic vertebra ([facility] HHS/HCC) Depression Diabetic polyneuropathy ([facility]) Disorder of rotator cuff Diverticular disease Dysphagia Elevated troponin Gastroesophageal reflux disease without esophagitis Hyperlipidemia, unspecified hyperlipidemia type Vascular dementia ([facility]) Unknown and unspecified causes of morbidity Syncope, unspecified syncope type Wrist joint pain Requires lifelong warfarin therapy Hyperparathyroidism ([facility]) Presence of prosthetic heart valve Plantar fascial fibromatosis Peripheral neuropathy Parathyroid adenoma Polymyalgia rheumatica ([facility]) Osteoporosis Numbness Muscle cramps Closed stable burst fracture of sixth thoracic vertebra, initial encounter ([facility]) Chest pain Contusion of scalp Knee pain Localized, primary osteoarthritis Osteoarthritis of knee Traumatic closed displaced fracture of distal end of radius Shoulder joint pain Hyperlipidemia associated with type 2 diabetes mellitus ([facility]) Hematoma Anxiety Diastolic heart failure ([facility]) Internal hemorrhoids Leukoencephalopathy Major depression single episode, in partial remission Metacarpal bone fracture Mitral valve disorder 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 Vision loss COPD (chronic obstructive pulmonary disease) ([facility]) Diarrhea Drug-induced constipation H/O mechanical aortic valve replacement Age-related osteoporosis with current pathological fracture Care Management Physical deconditioning Chronic heart failure with preserved ejection fraction (HFpEF) ([facility]) Paroxysmal atrial fibrillation ([facility]) Hypertension associated with type 2 diabetes mellitus ([facility]) Encounter for prophylactic measures, unspecified Graves' disease Cirrhosis of liver without ascites, unspecified hepatic cirrhosis type ([facility]) Stage 3b chronic kidney disease ([facility]) OLIVE (acute kidney injury) Heart failure with mildly reduced ejection fraction (HFmrEF) ([facility]) Hyperthyroidism Medications: Current Outpatient Medications Medication [...] Description 07/04/2024 3:20 PM CDT Office Visit [facility] Family & Internal Medicine - [address] [address] Sanjeev Webster DO [address] [place] [address] documented as of this encounter Goals Goal [...] they occur. Establish regular follow ups with Equipment Hire Manager, take medications exactly as directed without skipping doses. documented as of this encounter Visit Diagnoses Not on filedocumented in this encounter Additional Health Concerns Assessment Noted Time PHQ-9 Depression Total Score: 13 023 3:56 PM CDT documented as of this encounter Care Teams Wood Preparation Supervisor Relationship Specialty Start Date End Date Sanjeev Webster DO [address] [place] [address] PCP - General FAMILY PRACTICE 09/25/20 Casey Johnson RN [address] [place] [address] Hog Ringer (Ambulatory) REGISTERED NURSE 08/14/20 documented as of this encounter
--- OUTSIDE RECORDS SUMMARY | 2024-06-15 15:43 | XMS_ITS | Encounter Summary ---
Author Organization [facility] Address [address] [place] [address] Care Team Providers Care Transmitter Chief Name Role Phone Hong Holder MD Primary Care Provider [phone] Hong Holder MD Primary Care Provider [phone] Juan Pablo Dominguez MD Primary Care Provider Miscellaneous, Not In File Primary Care Provider Unavailable Sanjeev Webster DO Primary Care Provide r Encounter Details Date Type Department Care Team (Late st Contact Info) Description 05/28/2016 Orders Only [facility] ProviderCasi MD [address] [place] [address] Social History Tobacco Use Types Packs/Day Years Used Date Smoking Tobacco: Never Alcohol Use Standard Drinks/Week Comments No 0 (1 standard drink = 0.6 oz pur e alcohol) Comments Unknown Sex and Gender Information Value Date Recorded Sex Assigned at Not on file Legal Sex Female 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 Gender Identity Not on file Sexual Orientation [...] on filedocumented in this encounter Care Teams Transmitter Chief Relationship Specialty Start Date End Date Hong Holder MD [address] [address] PCP - General 06/06/16 01/11/20 Hong Holder MD [address] [address] PCP - General 01/15/15 06/05/16 Juan Pablo Dominguez MD [address] [address] PCP - General Family Medicine 01/12/20 08/06/20 Miscellaneous, Not In File PCP - General 08/07/20 2 Sanjeev Webster DO [address] [place] [address] PCP - General Family Medicine 03/11/21 documented as of this encounter
--- OUTSIDE RECORDS SUMMARY | 2024-06-15 15:43 | XMS_ITS | Clinical Summary ---
Author Organization [facility] [address] Address [address] [place] [address] Care Team Providers Care Contracts Attorney Name Role Phone Sanjeev Webster DO Primary Care Provide r Allergies Active Allergy Reactions Criticality Noted Date Comments Atorvastatin Muscle pain,Other (See comments) High 08/12/2021 Leg pain/cramps. Resolved after stopping. Bacitracin Benzalkonium Cortisone Rash,Unknown High 08/02/2023 Gramicidin D Hydrocortisone Neomycin Bituozio-Jzyebglyvm-Qeylv yxin Other (See comments) Low 07/31/2020 It [...] monitor 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 toxicity with continuous churn buttermaker u se 05/06/2019 Coronary artery disease invo lving [place] coronary artery of [place] heart without angina pectoris 05/06/2019 Abnormal stress test 05/06/2019 Bradycardia 05/06/2019 LBBB (left bundle branch block) 12/08/2018 Myopathy 02/17/2018 Paroxysmal atrial flutter ([facility]) 08/12/2017 Assessment & Plan (08/14/2020 8:04 [...] a associated with type 2 diabetes mellitus ([facility]) 07/16/2015 Overview (06/13/2016): DM type 2 [...] Type Department Care Team Description 05/03/2024 Telephone [facility] Cardiology [address] [place] [address] Paxton Villela MD Atrial Fibrillation from Last 3 Months Surgical History Surgery Date Site/Laterality Comments OTHER SURGICAL HISTORY Valve Replacement [facility] Medical History Medical History Date Comments [...] on file Legal Sex Female 6:10 AM BRASS BURNISHER Gender Identity Not on file Sexual Orientation Not on file Obstetrics History Last Filed Vital Signs Vital Sign Reading Time Taken Comments Blood Pressure 90/64 02/29/2024 10:36 AM BRASS BURNISHER Pulse 68 02/29/2024 10:36 AM BRASS BURNISHER Temperature 36.6 C (97.8 F) 08/17/2020 12:52 AM CDT Respiratory Rate 20 08/17/2020 12:52 AM CDT Oxygen Saturation 98% 02/29/2024 10:36 AM BRASS BURNISHER Inhaled Oxygen Concentration - - Weight 79.8 kg (176 lb) 02/29/2024 10:36 AM BRASS BURNISHER Height 165.1 cm (5' 5 ) 02/29/2024 10:36 AM BRASS BURNISHER Body Mass Index 29.29 02/29/2024 10:36 AM BRASS BURNISHER Plan of Treatment Health Maintenance Due Date [...] ORDERABLES Final Resul t Performing Organization Address [facility] de Phone Number KERRIE [address] [facility] [place] [address] * (ABNORMAL) Hemoglobin A1c (08/14/2020 9:38 AM CDT) Hgb A1C 6.0(H) 4.0 - 5.6 % KERRIE Estimated Average Glucose 126 mg/dL KERRIE Comment: The ADA recommends reporting an estimated Average Glucose (eAG) with all Hemoglobin A1c results using the equation derived from a study of 507 normal and diabetic adults. Minority populations were underrepresented and children were not included. (Diabetes Care 31:5583-1928, 2008). The eAG is not equivalent to a fasting glucose. Blood specimen (specimen) 08/14/2020 9:38 AM CDT 08/14/2020 9:54 AM CDT us Amparo Vergara MD LAB BLOOD ORDERABLES Final Resul t Performing Organization Address [facility] Co de Phone Number [address] [place] [address] from Last 3 Months or Most Recently Relevant to Health Maintenance Insurance [facility] Advance Directives For more information, please contact: [phone] Documents on File Type Date Recorded Patient Throw Out Clerk Expl anation ADVANCE DIRECTIVE 09/04/2020 1:26 PM OUTSI [facility] DNR ADVANCE DIRECTIVE 09/03/2020 12:52 PM ADVANCE DIRECTIVE 08/16/2020 11:40 AM OUTS [facility] DNR * Full Code (Latest Code Status on File) Date Activated Date Inactivated Comments 08/11/2020 6:08 PM 08/17/2020 5:34 PM Care Teams Contracts Attorney Relationship Specialty Start Date End Date Sanjeev Webster DO [address] [place] [address] PCP - General Family Medicine 03/11/21
--- OUTSIDE RECORDS SUMMARY | 2024-06-15 15:43 | XMS_ITS | Clinical Summary ---
Author Organization [facility] Address [address] [place] [address] Care Team Providers Care Patient Biller Name Role Phone Juan Pablo Dominguez MD Primary Care Provider Unavailabl e Source Comments [facility],non-owned Affiliates and Associated Physician Practices is amultiple site organization consisting of ambulatory clinics and hospital sitesin [place], [place], [place] and [place]. This disclosure is being madepursuant to the Care Everywhere program and may not contain all information available regarding this patient. Last updated [email or web address] [facility] Allergies No known active allergies Medications * [...] 4:06 AM 08/11/2020 4:47 PM Care Teams Patient Biller Relationship Specialty Start Date End Date Juan Pablo Dominguez MD PCP - General Family Medicine 08/09/20
--- OUTSIDE RECORDS SUMMARY | 2024-06-15 15:43 | XMS_ITS | Clinical Summary ---
Author Organization [facility] Address [address] [place] [address] Care Team Providers Care Blockers Skiver Name Role Phone Dianne Johnson RN Unavailable [phone] Suleman Montez DO Primary Care Provider + [...] :Chronic obstructive pulmonary disease, unspecified COPD type ([facility]) INHALE 2 PUFFS BY MOUTH EVERY 6 HOURS NEEDED FOR WHEEZING 18 g 5 023 Active Blood Glucose Monitoring Suppl (ONE TOUCH ULTRA 2) w/Device KitIndications:Typ e 2 diabetes mellitus with stage 3b chronic kidney disease, without long-term current use of insulin ([facility]) 1 Device by Does not apply route daily. 1 kit 023 Active Lancets (ONETOUCH ULTRASOFT) lancetsIndications :Type 2 diabetes mellitus with stage 3b chronic kidney disease, without long-term current use of insulin ([facility]) 1 each by Other route as needed. Use as instructed 100 each 3 023 Active Glucose Blood (BLOOD GLUCOSE TEST STRIPS) StripIndications:T ype 2 diabetes mellitus with stage 3b chronic kidney disease, without long-term current use of insulin ([facility]) 1 Device by Does not [...] 24 hr tabletIndications: Atrial fibrillation with RVR ([facility] HHS/HCC) Take 1 tablet (25 mg total) by mouth daily. 90 tablet 024 Active WALKER MISC, DME,Indications:Ac [place] gout of right foot, unspecified cause 1 Device by Does not apply route as needed. 1 Device 024 2024 Active gabapentin (NEURONTIN) 300 MG capsuleIndications :Chronic low back pain, unspecified back pain laterality, unspecified whether sciatica present TAKE 1 CAPSULE BY MOUTH THREE TIMES DAILY 270 capsule 024 Active warfarin (COUMADIN) 5 MG tabletIndications: alf (current) use of anticoagulants,H/O mechanical aortic valve [...] disease with congestive heart failure ([facility] HHS/HCC) Take 1 tablet by mouth once daily 30 tablet 1 025 Active omeprazole (PRILOSEC) 40 MG capsuleIndications :GERD (gastroesophageal reflux disease) Take 1 capsule by mouth once daily 90 capsule 025 Active simvastatin (ZOCOR) 10 MG tabletIndications: Hyperlipidemia associated with type 2 diabetes mellitus ([facility] HHS/HCC) TAKE 1 TABLET BY MOUTH NIGHTLY [...] with mildly re duced ejection fraction (HFmrEF) ([facility]) 02/16/2023 OLIVE (acute kidney injury) 08/26/2022 Graves' disease 07/07/2022 Cirrhosis of liver without a scites, unspecified hepatic cirrhosis type ([facility]) 07/07/2022 Stage 3b chronic kidney disease 07/07/2022 Encounter for prophylactic measures, unspecified 05/20/2022 Paroxysmal atrial fibrillation ([facility]) 12/01/2021 Hypertension associated with type 2 diabetes mellitus ([facility]) 12/01/2021 Chronic heart failure with p reserved ejection fraction (HFpEF) ([facility]) 11/25/2021 Physical deconditioning 11/06/2021 Care Management 07/29/2021 Age-related osteoporosis with current pathologic al fracture 07/16/2021 Anxiety 05/21/2021 Metacarpal bone fracture 05/21/2021 Mitral valve disorder 05/21/2021 Vision loss 05/21/2021 COPD (chronic obstructive pu lmonary disease) ([facility]) 05/21/2021 Drug-induced constipation 05/21/2021 Hematoma 12/13/2020 Hyperlipidemia associated wi th type 2 diabetes mellitus ([facility]) 11/25/2020 Chest pain 11/22/2020 Contusion of scalp 11/22/2020 Knee pain 11/22/2020 Localized, primary osteoarthritis 11/22/2020 Osteoarthritis of knee 11/22/2020 Traumatic closed displaced fracture of distal en d of radius 11/22/2020 Shoulder joint pain 11/22/2020 Closed stable burst fracture of sixth thoracic vertebra, initial encounter ([facility]) 09/13/2020 Disorder of skin of trunk 09/07/2020 Cobalamin deficiency 09/07/2020 Dysphagia 09/07/2020 Syncope, unspecified syncope type 09/07/2020 Wrist joint pain 09/07/2020 Requires lifelong warfarin therapy 09/07/2020 Hyperparathyroidism ([facility]) 09/07/2020 Plantar fascial fibromatosis 09/07/2020 Osteoporosis 09/07/2020 Numbness 09/07/2020 Muscle cramps 09/07/2020 Anemia 08/14/2020 Overview (09/07/2020): Last Assessment & Plan: Continue ferrous sulfate 325 mg daily 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[facility]) 08/14/2020 Overview (09/07/2020): Last Assessment & Plan: [...] test 05/06/2019 Coronary artery disease invo lving sitka coronary artery of sitka heart without angina pectoris 05/06/2019 Body mass index (BMI) 31.0-31.9, adult 0 Presence of prosthetic heart valve 02/23/2019 LBBB (left bundle branch block) 12/08/2018 Myopathy 02/17/2018 Diastolic heart failure ([facility]) 2017 Paroxysmal atrial flutter ([facility]) 08/2017 Compression fracture of thoracic vertebra ([facility]) 06/30/2017 Chronic anticoagulation 03/20/2017 H/O mechanical aortic valve replacement 03/20/19 18 Peripheral arterial occlusive disease 12/25/2016 Leukoencephalopathy 11/03/2016 Diverticular disease 10/12/2016 Internal hemorrhoids 10/12/2016 Diabetic polyneuropathy ([facility]) 2016 Parathyroid adenoma 09/17/2016 Disorder of rotator cuff 09/02/2016 Gastroesophageal reflux disease without esophagi tis 09/02/2016 Polymyalgia rheumatica ([facility]) 09/02/2016 Major depression single episode, in partial pollo ssion 09/02/2016 Primary osteoarthritis involving multiple joints 09/02/2016 H/O mechanical aortic valve replacement 09/03/19 17 Unknown and unspecified causes of morbidity 05/2016 Overview (09/07/2020): Morbid obesity with BMI of 40.0-44.9, adult Hypertensive heart disease w ith congestive heart failure ([facility]) 07/16/2015 Overview (11/21/2019): Diastolic heart failure [...] 09/13/2020 09/17/2020 Chronic obstructive lung dis ease ([facility]) 09/07/2020 06/20/2021 Atrial fibrillation with rap id ventricular response ([facility]) 08/22/2020 07/07/2022 Senile purpura 07/13/2019 01/12/2023 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 toxic ity with jail use 05/06/2019 02/03/2020 Prosthetic aortic valve stenosis 03/20/2017 02/03/2020 Kidney stone 02/03/2017 07/07/2022 Dizziness 08/15/2014 02/03/2020 Overview (11/21/2019): Dizziness History of anticoagulant therapy 08/15/2014 02/03/2020 Overview (11/21/2019): Chronic anticoagulation Encounters Date Type Department Care Team Description 06/15/2024 Patient Outreach [facility] Family & Internal [address] [phone] Dianne Johnson RN Care Management 06/09/2024 Telephone [facility] Family & Internal [address] [phone] Suleman Montez, DO Concerns 06/08/2024 Patient Outreach [facility] Internal [address] [phone] [place] [address] Dianne Johnson, RN Care Management 06/07/[address] [phone] Suleman Montez, DO Information 06/06/[address] [phone] Suleman Montez, DO Concerns 06/06/2024 Patient Outreach [address] [phone] Dianne Johnson, RN Care Management 06/06/[address] [phone] Suleman Montez, DO Referral 06/03/2024 Scan [facility] Scanned, [facility] 06/01/2024 Scan [facility] Scanned, [facility] 05/31/2024 Scan [facility] Scanned, [facility] 05/30/2024 3:40 PM CDT Office Visit [address] [phone] Suleman Montez, DO ER F/U (The patient presents for ER follow up. The patient states she went to the ER for A-Fib again. ) 05/30/2024 Travel 05/30/[address] [address] Suleman Montez, DO Other 05/30/[address] [address] Suleman Montez, DO Referral 05/30/2024 Patient Outreach [facility] Family & Internal [address] [phone] [place] [phone] Dianne Johnson, NURSE EXAMINER F/U ([place] ER on 05/28/24); Care Management 05/28/2024 Scan [facility] SRVCS Scanned, [facility] Lab (SCAN); Image (SCAN) 05/26/2024 Scan [facility] SRVCS Scanned, [facility] 05/26/2024 Telephone [facility] Family & Internal [place] [address] [place] [phone] Suleman Montez, DO Referral 05/26/2024 Patient Outreach [facility] Family Internal [facility] [address] [place] [phone] Dianne Johnson RN Care Management 05/24/2024 Scan [facility] INFO SRVCS Scanned, [facility] 05/23/2024 Scan [facility] Scanned, [facility] 2024 Scan [facility] INFO SRVCS Scanned, [facility] 05/20/2024 Orders Only [facility] Family & Internal [facility] [address] [place] [phone] Suleman Montez, DO 05/19/2024 Patient Outreach [facility] [address] [address] [place] [phone] Bebe Dan, EXTRACORPOREAL TECHNICIAN Care Management 05/18/2024 Telephone [facility] Family Internal [address] [address] [place] [phone] Suleman Montez, DO Prior Authorization 05/18/2024 Patient Outreach [facility] Family & Internal [facility] [address] [place] [phone] Dianne Johnson RN Care Management 05/17/2024 Scan [facility] INFO SRVCS Scanned, [facility] 05/17/2024 Telephone [facility] [address] [place] [phone] Suleman Montez, DO Other 05/10/2024 Scan [facility] INFO SRVCS Scanned, [facility] 05/10/2024 Orders Only [facility] [address] [place] [address] Suleman Montez, DO 05/10/2024 Telephone [address] [place] [address] Suleman Montez, DO Other 05/10/2024 Telephone [address] [place] [address] Suleman Montez, DO Prior Authorization (Alprazolam 0.5mg tablets) 05/10/2024 Patient Outreach [facility] [address] [place] [address] Dianne Johnson, RN Care Management 05/06/2024 Scan [facility] INFO SRVCS Scanned, [facility] 05/06/2024 Telephone [facility] [address] [place] [phone] Suleman Montez, DO Information 05/06/2024 Telephone [facility] [address] [place] [phone] Suleman Montez, DO Information 05/04/2024 Scan [facility] INFO SRVCS Scanned, [facility] Lab (SCAN) 05/04/2024 Telephone [facility] [address] [place] [phone] Suleman Montez, DO Information 05/04/2024 Patient Outreach [facility] [address] [phone] Silvina Dial, RN Care Management; ER F/U (Ed visit 05/03/24) 05/04/2024 Telephone [facility] [address] [address] Suleman Montez, DO Question 05/03/2024 10:40 AM FASHION EDITOR Office Visit [facility] [address] [address] Suleman Montez, DO TCM (The patient presents for TCM. The patient states she was admitted at [place] for A-fib. The patient was transferred to [place] for a swing bed due to covid and pneumonia.) 05/03/2024 Scan HEALTH INFO SRVCS Scanned, [facility] Lab (SCAN); Image (SCAN) 05/03/2024 Travel 05/01/2024 Scan [facility] INFO SRVCS Scanned, [facility] Lab (SCAN) 04/28/[address] [phone] Suleman Montez, DO Lab Results 04/27/[address] [address] Suleman Montez, DO Information 04/26/2024 Scan [facility] INFO SRVCS Scanned, [facility] 04/26/2024 Telephone [facility] [address] [address] Suleman Montez, DO Information 04/26/[address] [address] Suleman Montez, DO Other 04/25/2024 1:40 PM FASHION EDITOR Allied Health/Nurse Visit [facility] [address] [place] [address] Suleman Montez, DO Anticoagulation 04/25/2024 Scan [facility] INFO SRVCS Scanned, [facility] 04/25/2024 Travel 04/25/2024 Patient Outreach [facility] Family Internal [place] [address] [place] [address] Silvina Dial RN TCM ([facility] 03/09/24-04/08, [place] swing bed 04/08-04/22) 04/22/2024 Scan [facility] INFO SRVCS Scanned, [facility] 04/22/2024 Telephone [facility] [address] [address] Suleman Montez, DO Information 04/18/2024 Patient Outreach [facility] Family Internal [address] [phone] Dianne Johnson RN Hospital Follow Up (Currently at [facility] ) 04/12/2024 Telephone [facility] Multispecialty Care - [address], [address] [place] [phone] Julio Pulido MD Appointment Request 04/09/2024 Scan [facility] INFO SRVCS Scanned, [facility] 04/08/2024 Scan [facility] INFO SRVCS Scanned, [facility] 04/08/2024 Patient Outreach [facility] Family & Internal [address] [phone] Lola Haley dx board operator Medication (Trulicity - successful 2024) 04/08/2024 Patient Outreach [facility] & Internal [place] [address] [place] [address] Court Robles RN Hospital Follow Up (Outreach calls) 04/01/2024 Scan [facility] INFO SRVCS Scanned, [facility] Image (SCAN) 03/31/2024 Scan [facility] INFO SRVCS Scanned, [facility] Procedure (SCAN) 03/29/2024 Scan [facility] INFO SRVCS Scanned, [facility] Image (SCAN); CT (SCAN) 03/28/2024 Patient Outreach [facility] Family & Internal Medicine [address] [address] Dianne Johnson RN Hospital Follow Up (Currently at [facility] ) 03/26/2024 Scan [facility] HEALTH INFO SRVCS [...] [facility] Image (SCAN) 03/17/2024 Telephone [facility] Family & Internal Medicine [address] [address] Suleman Montez P, DO Information [...] Tdap (Generic) 09/05/2020,06/05/2016 Tetanus/Diptheria 07/22/2014 Zoster (Zostavax) 05897 Unt/0.65Ml 12/25/2015 Family History Medical History Relation [...] week 08/26/2022 How often do you attend [facility] or hinduism services? More than 4 times [...] Recorded Patient Health Questionnaire-2 Score 0 05/03/2024 [facility] Occupat ional [...] Sex Assigned at Female 05/03/2024 10:53 AM FASHION EDITOR Legal Sex Female 11:18 AM CDT Gender Identity Female 05/03/2024 10:53 AM FASHION EDITOR Sexual Orientation Not on file Last Filed [...] Description 07/04/2024 3:20 PM CDT Office Visit [facility] Family & Internal Medicine [facility] [address] [place] [address] Suleman Montez, [address] [place], [place] [phone] Health Maintenance Due Date Last Done Comments [...] 02/24/2023, 02/24/2023, Additional history exists PHQ-2 (Physician Ak Chin) Completed 05/03/2024 Meningococcal B Vaccine Aged Out [...] they occur. Establish regular follow ups with Fire Control Mechanic, take medications exactly as directed without skipping doses. Procedures Procedure Name Priority Date/Time Associated Diagnosis Comments OUTSIDE PT/INR (SCAN ORDER) 05/28/2024 OUTSIDE LAB (SCAN ORDER) 05/28/2024 IMAGE GENERIC 05/28/2024 OUTSIDE LAB (SCAN ORDER) 05/04/2024 OUTSIDE LAB (SCAN ORDER) 05/04/2024 ELECTROCARDIOGRAM (NON MIDMARK ACQUIRED) Routine 05/03/2024 11:34 AM FASHION EDITOR Paroxysmal atrial flutter (CMS/HCC HHS/HCC) EVENT RECORDER (ECG) UP TO 30 DAYS REVIEW/INTERP Routine 05/03/2024 10:40 AM FASHION EDITOR Paroxysmal atrial flutter (CMS/HCC HHS/HCC) COLLECT.CAPILLARY (FNGR,HEEL,EAR) Routine 05/03/2024 10:39 AM FASHION EDITOR Chronic anticoagulation OUTSIDE PT/INR (SCAN ORDER) 05/03/2024 OUTSIDE LAB (SCAN ORDER) 05/03/2024 OUTSIDE PT/INR (SCAN ORDER) 05/03/2024 OUTSIDE LAB (SCAN ORDER) 05/03/2024 PROTHROMBIN TIME, FINGERSTICK Routine 05/03/2024 Chronic anticoagulation IMAGE GENERIC 05/03/2024 IMAGE GENERIC 05/03/2024 OUTSIDE LAB (SCAN ORDER) 05/01/2024 COLLECT.CAPILLARY (FNGR,HEEL,EAR) Routine 04/25/2024 1:41 PM FASHION EDITOR Chronic anticoagulation PROTHROMBIN TIME, FINGERSTICK Routine 04/25/2024 [...] current use of insulin ([facility]) BONE DENSITY GENERIC (SCAN ORDER) 11/24/2023 [...] resultswithin the time period is included. 05/28/2024 [facility] Scanned SCANNING Final Resu lt * OUTSIDE LAB (SCAN ORDER) (05/28/2024) Only the most recent of6 resultswithin the time period is included. 05/28/2024 [facility] Scanned SCANNING Final Resu lt * IMAGE GENERIC (05/28/2024) Only the most recent of9 resultswithin the time period is included. Anatomical Region Laterality Modality Other 05/28/2024 [facility] Scanned SCANNING Final Resu lt * EKG WELCHALLEN ACQUIRED (05/03/2024 11:34 AM FASHION EDITOR) 05/03/2024 11:3 4 AM FASHION EDITOR Narrative [facility] RAD - 05/04/2024 9:41 AM FASHION EDITOR [facility] [address] [place] [address] Test Date: 2024-05-03 Pat Name: ANA MARIA JERAMIE Department: 171 Room: Gender: Female Business Intelligence Director: : 1945 Requested By: SULEMAN MONTEZ Order Number: [id number] Reading MD: Suleman Montez Measurements Intervals [place] Rate: 132 P: -65 [place]: 120 QRS: -27 QRSD: 132 T: 126 QT: 318 QTc: 472 Interpretive Statements Atrial Fibrillation with RVR LEFT BUNDLE BRANCH BLOCK ION EDITOR Procedure Note Suleman Montez DO - 05/04/2024 [facility] [address] [place] [address] Test Date: 2024-05-03 Pat Name: ANA MARIA BOBO Department: 171 Room: Gender: Female Business Intelligence Director: : 1945 Requested By: SULEMAN MONTEZ Order Number: [id number] Reading MD: Suleman Montez Measurements Intervals [place] Rate: 132 P: -65 [place]: 120 QRS: -27 QRSD: 132 T: 126 QT: 318 QTc: 472 Interpretive Statements Atrial Fibrillation with RVR LEFT BUNDLE BRANCH BLOCK ION EDITOR us Suleman Montez DO PROCEDURES-ORDERABLE NO CHARGE Final Result [facility] * ECG Review/Interpret Only (05/03/2024 10:40 AM FASHION EDITOR) Narrative Suleman Montez DO - 05/03/2024 10:40 AM FASHION EDITOR Suleamn Montez DO 05/04/2024 9:57 AM ECG Review/Interpret [...] is included. INR WHOLE BLOOD 2.00 [facility] 05/03/2024 Result [facility] Suleman Montez DO LABORATORY Final Re sult [facility] [address] [place] [address], [place] * PROCEDURE GENERIC (SCAN ORDER) (03/31/2024) 03/31/2024 [facility] Scanned SCANNING Final Resu lt * CT GENERIC (03/29/2024) Only the most recent of3 resultswithin the time period is included. Anatomical Region Laterality Modality Other 03/29/2024 [facility] Scanned SCANNING Final Resu lt * STRESS TEST (SCAN ORDER) (03/22/2024) Only the most recent of2 resultswithin the time period is included. 03/22/2024 [facility] Scanned SCANNING Final Resu lt * HEMOGLOBIN, GLYCOSYLATED (02/29/2024) HGB A1C 5.5 % [facility] 02/29/2024 Result [facility] Suleman Montez DO LABORATORY Final Re sult [facility] [address] [place] [address], [place] * BONE DENSITY GENERIC (SCAN ORDER) (11/24/2023) Anatomical Region Laterality Modality Other 11/24/2023 [facility] Scanned SCANNING Final Resu lt * (ABNORMAL) LIPID PANEL (08/14/2023 12:00 PM CDT) CHOLESTEROL 201(H) <200 MG/DL 08/14/2023 7:44 PM CDT [facility] TRIGLYCERIDES 97 <150 MG/DL 08/14/2023 7:44 PM CDT [facility] HDL 66 >40 MG/DL 08/14/2023 7:44 PM CDT [facility] LDL-C 116(H) <100 MG/DL 08/14/2023 7:44 PM CDT [facility] VLDL CALCULATION 19 5 - 28 MG/DL 08/14/2023 7:44 PM CDT [facility] CHOL/HDL RATIO 3.0 0.0 - 4.0 08/14/2023 7:44 PM CDT [facility] LDL/HDL 1.8 0.41 - 2.13 08/14/2023 7:44 PM CDT [facility] NON HDL CHOLESTEROL 135 <140 MG/DL 08/14/2023 7:44 PM CDT [facility] 08/14/2023 12:0 0 PM CDT Suleman Montez DO LABORATORY Final Re sult [facility] [address] [place] [address], [place] [phone] * DIABETIC RETINOPATHY EXAM (NEGATIVE)(SCAN) (04/21/2022) us [facility] Scanned SCANNING Final Resu lt [facility] ONBASE from Last 3 Months or Most [...] 4:17 PM 10/21/2021 4:52 PM Care Teams Blockers Skiver Relationship Specialty Start Date End Date Suleman Montez DO [address] [place] [address] PCP - General FAMILY PRACTICE 09/25/20 Dianne Johnson, RN [address] [place] [address] Substation Operator Helper (Ambulatory) REGISTERED NURSE 08/14/20
--- OUTSIDE RECORDS SUMMARY | 2024-06-15 15:43 | XMS_ITS | Encounter Summary ---
Author Organization [facility] Address [facility] [place] [address] Care Team Providers Care Office System Analyst Name Role Phone Dianne Johnson RN Unavailable [phone] Sanjeev Webster DO Primary Care Provider + Encounter Details Date Type Department Care Team (Late st Contact Info) Description 07/16/2021 Therapy Plan [facility] Diabetes and Endocrinology - [place] [id number] [facility] [place] [address] [place] [address] [place] [address] Social History Tobacco Use Types Packs/Day Years [...] Sex Assigned at Female 05/03/2024 10:53 AM ADMEASURER Legal Sex Female 11:18 AM CDT Gender Identity Female 05/03/2024 10:53 AM ADMEASURER Sexual Orientation Not on file COVID-19 Exposure [...] Description 07/04/2024 3:20 PM CDT Office Visit [facility] Family & Internal Medicine - [place] [address] [place] [address] Sanjeev Webster, [address] [place] [address] documented as of this encounter Goals Goal [...] Rule Out 01/13/2022 01/13/2022 01/13/2022 12:48 PM ADMEASURER COVID-19 Rule Out 01/13/2022 01/13/2022 01/14/2022 12:15 AM ADMEASURER COVID-19 Rule Out 03/18/2022 03/18/2022 03/18/2022 12:27 PM ADMEASURER COVID-19 Rule Out 03/18/2022 03/18/2022 03/18/2022 12:57 PM ADMEASURER COVID-19 Rule Out 03/18/2022 03/18/202203/1903/19/2022 1:58 PM ADMEASURER COVID-19 Rule Out 08/26/2022 08/26/2022 08/26/2022 4:56 PM CDT COVID-19 Rule Out 01/08/2024 01/08/2024 01/08/2024 1:05 PM CDT Assessment Noted Time PHQ-9 Depression Total Score: 0 05/25/19 9:23 AM CDT documented as of this encounter Care Teams Office System Analyst Relationship Specialty Start Date End Date Sanjeev Webster DO [address] [place] [address] PCP - General FAMILY PRACTICE 09/25/20 Dianne Johnson, RN [address] [place] [address] Manager Merchandising (Ambulatory) REGISTERED NURSE 08/14/20 documented as of this encounter
--- OUTSIDE RECORDS SUMMARY | 2024-06-15 15:43 | XMS_ITS | CONTINUITY OF CARE DOCUMENT ---
Author Name gaetano salter Address Unknown Organization [facility] Address [id number] [place] [address] [address] [place] [address] Phone [phone] Care Team Providers Care Manufacturing Sales Representative Name Role Phone Wendy Dey MD Unavailable [phone] Wendy Dey MD Unavailable [phone] INSURANCE PROVIDERS Payer name Policy type / Coverage type [place] red libertarian ID [employer] Other [id number]
--- OUTSIDE RECORDS SUMMARY | 2024-06-15 15:43 | XMS_ITS | Referral Summary ---
Author Organization [facility] [place] [address] [facility] [address] Address [address] [place] [address] Care Team Providers Care Lime Mixer Name Role Phone Sanjeev Webster DO Primary Care Provide r Encounters Date Type Department Care Team Description 05/03/2024 Telephone [facility] Cardiology [address] [facility] [address] [place] [address] Paxton Villela MD Atrial Fibrillation from Last 3 Months Allergies Active Allergy Reactions Criticality Noted Date Comments Atorvastatin Muscle pain,Other (See comments) High 08/12/2021 Leg pain/cramps. Resolved after stopping. 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 05/06/2019 Coronary artery disease invo lving [place] coronary artery of [place] heart without angina pectoris 05/06/2019 Abnormal stress test 05/06/2019 Bradycardia 05/06/2019 LBBB (left bundle branch block) 12/08/2018 Myopathy 02/17/2018 Paroxysmal atrial flutter ([facility]) 08/12/2017 Assessment & Plan (08/14/2020 8:04 AM [...] a associated with type 2 diabetes mellitus ([facility]) 07/16/2015 Overview (06/13/2016): DM type [...] file Legal Sex Female 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[employer] Gender Identity Not on file Sexual Orientation Not on file Last Filed Vital Signs Vital Sign Reading Time Taken Comments Blood Pressure 90/64 02/29/2024 10:36 AM SALES REPRESENTATIVE [employer] Pulse 68 02/29/2024 10:36 AM SALES REPRESENTATIVE [employer] Temperature 36.6 C (97.8 F) 08/17/2020 12:52 AM CDT Respiratory Rate 20 08/17/2020 12:52 AM CDT Oxygen Saturation 98% 02/29/2024 10:36 AM SALES REPRESENTATIVE [employer] Inhaled Oxygen Concentration - - Weight 79.8 kg (176 lb) 02/29/2024 10:36 AM SALES REPRESENTATIVE [employer] Height 165.1 cm (5' 5 ) 02/29/2024 10:36 AM SALES REPRESENTATIVE [employer] Body Mass Index 29.29 02/29/2024 10:36 AM SALES REPRESENTATIVE [employer] Plan of Treatment Not on file Procedures [...] LAB BLOOD ORDERABLES Final Resul t [facility] Department [place] [address] * (ABNORMAL) Hemoglobin A1c (08/14/2020 9:38 AM CDT) Hgb A1C 6.0(H) 4.0 - 5.6 % [facility] Estimated Average Glucose 126 mg/dL [facility]RIE LUGO Comment: The ADA recommends reporting an estimated Average Glucose (eAG) with all Hemoglobin A1c results using the equation derived from a study of 507 normal and diabetic adults. Minority populations were underrepresented and children were not included. (Diabetes Care 31:4784-8735, 2008). The eAG is not equivalent to a fasting glucose. Blood specimen (specimen) 08/14/2020 9:38 AM CDT 08/14/2020 9:54 AM CDT Amparo Vergara MD LAB BLOOD ORDERABLES Final Resul t [facility] [address] [facility] [place] [address] from Last 3 Months or Most Recently Relevant to Health Maintenance Insurance [facility] Member Subscriber Plan / Payer (Ef fective 2011-Present) Name:RADHA BOBO Relation to Subscriber:Self Name:Radha Bobo Payer ID:[id number] (NAIC) Type:MEDICARE RISK OTHER Address: [facility] [address] Advance Directives For more information, please contact: [phone] Documents on File Type Date Recorded 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
--- OUTSIDE RECORDS SUMMARY | 2024-06-15 15:43 | XMS_ITS | Clinical Summary ---
Author Organization [facility] Address [address] [place] [address] Phone Care Team Providers Care Welt Edge Rounder Name Role Phone Sanjeev Webster DO Primary Care Provider + Blade Phillips MD Unavailable [phone] Allergies Active Allergy Reactions Criticality Noted Date [...] topic Insurance MEDICARE C ESSENCE Care Teams Welt Edge Rounder Relationship Specialty Start Date End Date Sanjeev Webster DO [address] [place] [address] PCP - General Family Medicine 09/14/23 Blade Phillips MD [address] [place] [phone] Oncology 09/14/23
[2024-06-15 16:01] LABS: Basophils Absolute Auto 0.1 K/mm3 (0.0-0.1); Eosinophils Absolute Auto 0.1 K/mm3 (0-0.3); Eosinophils Percent Auto 1.8 % (0-4.4); Hematocrit 40.2 % (37.0-47.0); Hemoglobin 12.4 g/dL (12.0-15.0); Immature Granulocyte Absolute 0.02 K/mm3 (0.00-0.031); Immature Granulocyte Percent A 0.3 % (0-0.5); Lymphocytes Absolute Auto 1.38 K/mm3 (0.9-3.2); Lymphocytes Percent Auto 17.5 % (18.3-44.2); Mean Corpuscular HGB Conc 30.8 g/dl (32-36); Mean Corpuscular Hemoglobin 32.4 pg (26-34); Mean Platelet Volume 12.5 fl (7.4-10.4); Monocytes Absolute Auto 0.9 K/mm3 (0.1-0.6); Monocytes Percent Auto 11.4 % (2.6-8.5); Neutrophils Absolute Auto 5.4 K/mm3 (1.3-6.7); Platelet Count Result 261 k/mm3 (150-375); Red Blood Count 3.83 M/mm3 (4.2-5.4); Red Cell Distribution Width 12.7 % (11.5-14.5); White Blood Count 7.9 K/mm3 (4.5-10.0)
[2024-06-15 16:10] LABS: Alanine Aminotransferase 20 U/L (6-35); Albumin Level 3.9 g/dL (3.5-5.1); Alkaline Phosphatase 82 U/L (38-126); Anion Gap 5 mmol/L (4-12); Aspartate Amino Transferase 29 U/L (14-36); Bilirubin,Total 0.5 mg/dL (0.2-1.3); Blood Urea Nitrogen 16 mg/dL (7-17); Calcium 10.6 mg/dL (8.4-10.2); Carbon Dioxide 31 mmol/L (22-30); Chloride 104 mmol/L (98-107); Estimated CRCL calculation 35 ml/min; Estimated Glomerular Filt Rate 49; Glucose 161 mg/dL (65-110); Lipase 83 U/L (23-300); Magnesium 1.5 mg/dL (1.6-2.3); Sodium 140 mmol/L (137-145)
[2024-06-15 16:14] LABS: INR 4.2
[2024-06-15 16:15] LABS: Partial Thromboplastin Time 66.8 Seconds (22.3-36.8)
[2024-06-15 17:41] LABS: NT Pro B Type Natriuretic Pept 5850 pg/mL (19.9-100)
[2024-06-15] MEDS: SODIUM CHLORIDE 0.9% IV 1,000 ML 999 ML IV CONT (18:00)
--- NOTE | 2024-06-15 18:14 | PC.NURSE ---
Pt. walked to bathroom by this RN. Assistance needed x1.
--- NOTE | 2024-06-15 18:16 | PC.NURSE ---
Pt. denies nausea. zofran not administered.
[2024-06-15 18:42] LABS: Add Urine Microscopic? YES; Appearance Urine Clear (Clear); Bacteria Urine None Seen /hpf; Bilirubin Urine Negative (Negative); Blood Urine Negative (Negative); Color Urine Yellow (Yellow); Glucose Urine UA Negative (Negative); Ketones Urine Negative (Negative); Leukocyte Esterase Ur 2+ LEU/UL (Negative); Nitrate Urine Negative (Negative); Non Pathogenic Casts 0-2; Protein Urine Negative (Negative); RBC Urine 0-2 /hpf (0-2); Specific Grav Ur 1.028 (1.001-1.035); Squamous Epithelial Cell Urine Occasional /hpf (Few); Urobilinogen Urine 0.2 mg/dL (<2.0); pH Urine 5.5 (5.0-9.0)
--- NOTE | 2024-06-15 18:55 | PM.IMHP ---
H&P: HPI History of Present Illness Date/Time: 06/15/24 18:55 Chief Complaint: Nausea, vomiting, dark stools. Narrative: This is a very pleasant 79-year-old female with history of heart failure with reduced ejection fraction,, paroxysmal atrial fibrillation, type 2 diabetes, sleep apnea, chronic kidney disease, anemia, aortic valve stenosis status post mechanical valve replacement on chronic anticoagulation, and hiatal hernia who presented to the emergency department for evaluation of nausea, vomiting, and dark stools. She has not been feeling well for couple of days with nausea and vomiting after she eats or drinks. She had 1 episode of diarrhea today which was dark in color and perhaps a bit tarry. She recently changed vitamins to one that includes iron and she wonders if the dark stools are due to the iron. She denies sick contacts, syncope, near syncope, chest pain, epigastric and abdominal pain, bloating, belching, hematemesis, and concerns for aspiration. No sick contacts. In the ED: Blood pressures have been in the 170s to 190s systolic. The remainder of her vital signs have been stable. Labs were significant for WBC count of 7.9, hemoglobin 12.4, PT 41, INR 4.2, PTT 66.8, BUN 16, creatinine 1.08, magnesium 1.5, proBNP 5850. CT of the abdomen and pelvis showed a hyperdensity in the duodenal bulb an area of thickening in the sigmoid colon. She is being admitted in this setting for closer monitoring and consult with GI. Review of Systems Review of Systems: 12 systems were reviewed and are negative except for as per HPI. [facility] Past Medical History Medical History (Updated 06/16/24 @ 01:16 by Anisha Vega PA-C) Chronic kidney disease Baseline creatinine is around 1.50. Paroxysmal atrial fibrillation Irritable bowel syndrome Gallbladder disorder Arthritis Vitamin B12 deficiency Restless leg syndrome Congestive heart failure Echocardiogram in March 2021 showed normal FVC size, moderate LVH, borderline LV systolic function with an EF of 50 to 55%, and grade 1 diastolic dysfunction. Depression with anxiety Degenerative joint disease Burst fracture of thoracic vertebra Kidney stone Obstructive sleep apnea on CPAP Diverticulitis Hypertension Type 2 diabetes mellitus Chronic obstructive pulmonary disease Patient had a pulmonary function test on 02/24/2020 which was suggestive of COPD. Chronic anticoagulation Hyperlipidemia Herniated disc Surgical History Surgical History History of right knee surgery Ligamentous repair. History of bilateral cataract extraction History of mechanical aortic valve replacement (2003) [facility] valve. History of ankle surgery ORIF left ankle fracture. History of hysterectomy Family History Family History Mother Family history of cardiovascular disease Family history of arthritis CHF (congestive heart failure) Depression Family history of coronary artery disease Father Family history of cardiovascular disease Diabetes mellitus Family history of arthritis Acute myocardial infarction Family history of diabetes mellitus in first degree relative Sibling , cancer Family history of arthritis Malignant neoplasm of prostate Sibling Family history of arthritis Malignant neoplasm of prostate Social History Social History Social History: Surrogate decision maker: Izzy Martinez, daughter. Code status: Full code. Smoking packs per day: 1 Smoking cigarettes per day: 20.0 Years smoked: 5 Smoking pack-years: 5.00 Smoking status: Never smoker Tobacco type: cigarettes Second hand tobacco smoke exposure: No Alcohol intake: never Substance use: never Substance use type: does not use Do You Feel Safe in your Home?: Yes Lack of Transportation: YES Lack of Food: Sometimes True Current Housing: I Have Housing Concerned About Future Housing: No Difficulty Paying Gas/Electric Bills: No Difficulty Paying for Meds: No Currently Unemployed: No Education: Grade School Difficulty w/ Childcare or Family Care: No Living arrangements: alone Additional living arrangements comments: . She has 4 children. 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 Spiritual care concerns: No Agree to blood products: Yes Meds Home Medications and Allergies Home Medications ?Medication ?Instructions ?Recorded ?Confirmed ?Type gabapentin 300 mg capsule 300 mg PO Q8H 01/09/19 06/15/24 History venlafaxine 150 mg 150 mg PO DAILY 01/09/19 06/15/24 History capsule,extended release 24 hr furosemide 20 mg tablet 20 mg PO DAILY 03/18/22 06/15/24 History potassium chloride 10 mEq 10 meq PO HS 03/18/22 06/15/24 History tablet,extended release cholecalciferol (vitamin D3) 1,000 units PO DAILY 08/23/23 06/15/24 History simvastatin 10 mg PO HS 08/23/23 06/15/24 History cyanocobalamin (vitamin B-12) 1,000 mcg PO DAILY #30 caps 08/26/23 06/15/24 Rx 1,000 mcg capsule alprazolam 0.5 mg tablet 0.25 mg PO HS PRN Anxiety 11/01/23 06/15/24 History omeprazole 40 mg capsule,delayed 40 mg PO DAILY 11/01/23 06/15/24 History release warfarin 6 mg tablet 6 mg PO DAILY 03/08/24 06/15/24 History melatonin 5 mg tablet 5 mg PO HS #30 tabs 04/07/24 06/15/24 Rx methimazole 5 mg tablet 5 mg PO DAILY #90 tabs 05/06/24 06/15/24 Rx alendronate 35 mg tablet 35 mg PO WEEKLY 06/15/24 06/15/24 History metoprolol succinate 25 mg 25 mg PO DAILY 06/15/24 06/15/24 History tablet,extended release 24 hr polyethylene glycol 3350 17 gram 17 g PO QAM PRN constipation 06/15/24 06/15/24 History oral powder packet (Miralax) sotalol 80 mg tablet 40 mg PO BID 06/15/24 06/15/24 History warfarin 1 mg tablet 1 mg PO DAILY 06/15/24 06/15/24 History Allergies Allergy/AdvReac Type Severity Reaction Status Date / Time adhesive tape Allergy Intermediate Blister Verified 05/03/24 19:44 cortisone Allergy Intermediate Rash Verified 05/03/24 19:44 bacitracin Allergy Mild Rash Verified 05/03/24 19:44 neomycin Allergy Mild Rash Verified 05/03/24 19:44 polymyxin B Allergy Mild Rash Verified 05/03/24 19:44 Vital Signs Vital Signs - 24 hr 06/15/24 13:29 06/15/24 14:28 06/15/24 15:57 Temperature Pulse Rate 60 63 64 Respiratory Rate 13 16 16 Blood Pressure 171/71 H 146/59 H 161/97 H Pulse Oximetry 97 99 97 Oxygen Delivery Room Air 06/15/24 17:06 06/15/24 18:15 Temperature 98.3 F Pulse Rate 62 Respiratory Rate 13 Blood Pressure 163/96 H Pulse Oximetry 99 Oxygen Delivery Exam Narrative: General: Well-developed female supine in bed in no acute distress. Nontoxic in appearance. Weight: 73.3 kg. BMI: 29.6. HEENT: Wearing glasses. PERRL, EOMI. Conjunctivae anicteric. Moist mucous membranes. Neck: Supple. Respiratory: Respirations are even and nonlabored. Lungs are clear to auscultation bilaterally. Cardiovascular: Bradycardic with normal S1-S2. Systolic murmur at upper sternal border with mechanical click. Gastrointestinal: Abdomen is soft and nondistended with positive bowel sounds. She is tender to palpation the epigastric region. No guarding or rebound tenderness. Skin: Warm and dry. Extremities: No cyanosis, clubbing, or significant edema. Radial and pedal pulses intact. Neurological: Alert. Cranial nerves 2-12 are grossly intact. No gross focal deficits to casual conversation. Psychiatric: Pleasant and cooperative with normal mood and affect. Judgment and insight intact. H&P: Results Labs Labs: Short CBC 06/15/24 Range/Units 15:52 WBC 7.9 (4.5-10.0) K/mm3 Hgb 12.4 (12.0-15.0) g/dL Hct 40.2 (37.0-47.0) % Plt Count 261 (150-375) k/mm3 BMP 06/15/24 15:52 Sodium 140 Potassium 4.0 Chloride 104 Carbon Dioxide 31 H BUN 16 Creatinine 1.08 H Glucose 161 H Calcium 10.6 H Liver Function 06/15/24 Range/Units 15:52 Total Bilirubin 0.5 (0.2-1.3) mg/dL AST 29 (14-36) U/L ALT 20 (6-35) U/L Alkaline Phosphatase 82 (38-126) U/L Albumin 3.9 (3.5-5.1) g/dL Urine 06/15/24 Range/Units 18:17 Urine Color Yellow (Yellow) Urine Appearance Clear (Clear) Urine pH 5.5 (5.0-9.0) Ur Specific [place] 1.028 (1.001-1.035) Urine Protein Negative (Negative) mg/dL Urine Glucose (UA) Negative (Negative) mg/dL Imaging Abdomen/Pelvis CT 06/15/24 16:52 IMPRESSION: 1. No evidence of appendicitis, diverticulitis or intestinal obstruction. 2. Hyperdensity seen in the duodenal bulb. Upper GI endoscopy is advised. 3. Area of thickening in the sigmoid colon: Clinical correlation and follow-up advised. Chest X-Ray 06/15/24 18:44 IMPRESSION: 1. Prominent markings with interstitial thickening in the lung bases which may indicate pneumonitis. Clinical correlation advised. Assessment and Plan Assessment and plan (1) Dark stools: Code(s): R19.5 - Other fecal abnormalities Status: Acute (2) Hypomagnesemia: Code(s): E83.42 - Hypomagnesemia Status: Acute (3) Supratherapeutic INR: Code(s): R79.1 - Abnormal coagulation profile Status: Acute (4) History of mechanical aortic valve replacement: Onset Date: 2003 Code(s): Z95.2 - Presence of prosthetic heart valve Status: Acute (5) Congestive heart failure: Code(s): I50.9 - Heart failure, unspecified Status: Acute (6) Paroxysmal atrial fibrillation: Code(s): I48.0 - Paroxysmal atrial fibrillation Status: Acute (7) Diet-controlled type 2 diabetes mellitus: Code(s): E11.9 - Type 2 diabetes mellitus without complications Status: Acute Plan The patient presented to the emergency department with complaints of nausea, vomiting, and dark stool as detailed in HPI. Labs, imaging, EKG, and all reports were personally reviewed. Digital rectal exam per ED physician did not yield enough stool for Hemoccult testing. Patient does report that she is now taking a multivitamin with iron and is wondering if her stools are dark because of that. However CT scan shows a hyperdensity in the duodenal bulb and upper GI bleeding cannot be ruled out. She has been started on pantoprazole. INR is supratherapeutic (goal is about 3.0 for mechanical valve) and her warfarin will be held. If there are plans for endoscopy, Dr. Farrell should be consulted for recommendations on how to proceed. An area of thickening was also seen in the sigmoid colon and at some point a colonoscopy may be considered. Trend hemoglobin and hematocrit. Magnesium will be replaced and monitored. She sounds to be in normal sinus rhythm at this time. Continue sotalol. Her volume status is euvolemic. Diabetes is diet controlled. Chronic kidney disease is stable on review of previous labs. Her home medications will be reviewed and resumed as appropriate. Findings and treatment plan were discussed with the patient. Questions were solicited and answered to satisfaction. The patient's medical management will be taken over by the hospitalist team in a.m. Quality VTE Prophylaxis VTE prophylaxis: mechanical ordered If No VTE Prophylaxis Answer both mechanical and pharmacologic: Reason no pharmacologic proph: medical contraindication supratherapeutic INR >3 The patient has been admitted under observation status. Hospitalist MIPS Advance Care Plan I have confirmed that the patient's Advanced Care Plan is present, code status is documented, or surrogate decision maker is listed in patient medical record.: Yes Medication Reconciliation I have utilized all available resources to obtain, update and review the patients current medications (includes all prescriptions, OTC, herbals, cannabis, and nutritional supplements).: Yes
--- NOTE | 2024-06-15 19:49 | PC.NURSE ---
Pt. hypertensive. Pt. denies CP. Pt. only complaint is a 5/[address] Hartmann notified of abnormal VS. See MAR for intervention per MD.
[2024-06-15 19:50] LABS: Hematocrit 38.2 % (37.0-47.0); Hemoglobin 12.2 g/dL (12.0-15.0)
--- NOTE | 2024-06-15 20:38 | PC.NURSE ---
Pharmacy called for medication to be delivered to bedside.
[2024-06-15] MEDS: SOTALOL HCL 40 MG TABLET PO (20:53)
--- NOTE | 2024-06-15 21:50 | ADMGEN ---
This patient, Radha Huynh, was admitted to Medical Room 249-01. Patient/family oriented to hospital policies and general routines including ID bracelet, bed and alarms, visiting hours, pain management, procedures, bathroom and other care routines, personal items, smoking policy, room service/diet, and visiting hours. Information on how to activate the Rapid Response Team has been discussed. Patient/Family are encouraged to report perceived risks to care and to ask questions if they do not understand what they are told or what they should do.
[2024-06-16] MEDS: SIMVASTATIN 10 MG TABLET PO ×2 (00:50→20:18)
[2024-06-16] MEDS: GABAPENTIN 300 MG CAPSULE PO (00:51)
[2024-06-16] MEDS: MELATONIN 5 MG TABLET PO ×2 (00:51→20:17)
[2024-06-16] MEDS: PANTOPRAZOLE SODIUM IV 40 MG VIAL IV PUSH ×3 (00:52→20:17)
[2024-06-16] MEDS: MAGNESIUM SULF 2 GM/WATER 50ML 2 GM/50 ML BAG IVPB (00:58)
[2024-06-16 05:35] LABS: Hematocrit 33.6 % (37.0-47.0); Hemoglobin 10.5 g/dL (12.0-15.0); Mean Corpuscular HGB Conc 31.3 g/dl (32-36); Mean Corpuscular Hemoglobin 32.2 pg (26-34); Mean Corpuscular Volume 103.1 fl (80-100); Platelet Count Result 236 k/mm3 (150-375); Red Blood Count 3.26 M/mm3 (4.2-5.4); Red Cell Distribution Width 12.5 % (11.5-14.5); White Blood Count 5.3 K/mm3 (4.5-10.0)
[2024-06-16 05:51] LABS: Anion Gap 4 mmol/L (4-12); Blood Urea Nitrogen 14 mg/dL (7-17); Calcium 9.9 mg/dL (8.4-10.2); Carbon Dioxide 29 mmol/L (22-30); Chloride 106 mmol/L (98-107); Estimated CRCL calculation 38 ml/min; Estimated Glomerular Filt Rate 54; Glucose 81 mg/dL (65-110); Magnesium 2.2 mg/dL (1.6-2.3); Potassium 3.7 mmol/L (3.4-5.0); Sodium 139 mmol/L (137-145)
[2024-06-16 06:00] VITALS: BP 137/63; PULSE 60; RESP 18; TEMP 36.8; O2SAT 94
[2024-06-16 06:00] LABS: T4 Thyroxine 7.08 ug/dL (5.53-11.0)
[2024-06-16 06:21] LABS: INR 4.9; Prothrombin Time 46.3 Seconds (11.1-14.7)
[2024-06-16 06:22] LABS: Partial Thromboplastin Time 72.9 Seconds (22.3-36.8)
--- NOTE | 2024-06-16 07:11 | P.PNIM_ITS ---
Progress Note: A&P Assessment and Plan (1) Dark stools: Code(s): R19.5 - Other fecal abnormalities Status: Acute Assessment and Plan: * Monitor serum electrolytes, CBC, hemoglobin/hematocrit q.8 hours. If hemog lobin drops below 7 transfuse packed red blood cells * Monitor for bloody bowel movements, chest pain, SOB or dizziness/lightheadedness * Pantoprazole BID * Diet: NPO * DVT Px: SCDs * Holding warfarin * GI consulted * Continue Protonix, care w/ NSAIDs, ASA and Anticoag * H/H continues to trend down or active bleeding noted may consider INR reversal with Vitamin K and FFP to get INR below 2.5 for endoscopic evaluation while inpatient * Recheck Iron panel, B12/Folate (2) Hypomagnesemia: Code(s): E83.42 - Hypomagnesemia Status: Acute Assessment and Plan: * In ED: 1.5 * Given supplementation * Monitor daily (3) Supratherapeutic INR: Code(s): R79.1 - Abnormal coagulation profile Status: Acute Assessment and Plan: * Mechanical Valve goal = 3.0 * In ED: INR 4.2 (4) History of mechanical aortic valve replacement: Onset Date: 2003 Code(s): Z95.2 - Presence of prosthetic heart valve Status: Acute Assessment and Plan: * Replacement in 2003 (5) Congestive heart failure: Code(s): I50.9 - Heart failure, unspecified Status: Acute Assessment and Plan: * Volume status = Euvolemic * BNP= 5850 * Stable (6) Paroxysmal atrial fibrillation: Code(s): I48.0 - Paroxysmal atrial fibrillation Status: Acute Assessment and Plan: * Hold Warfarin (7) Diet-controlled type 2 diabetes mellitus: Code(s): E11.9 - Type 2 diabetes mellitus without complications Status: Acute Assessment and Plan: * Diet controlled * hypoglycemia protocol * POC blood glucose ACHS * home medication - none * A1C (01/28) = 6.2 (8) Chronic kidney disease: Qualifiers: Chronic kidney disease stage: unspecified stage Qualified Code(s): N18.9 - Chronic kidney disease, unspecified Code(s): N18.9 - Chronic kidney disease, unspecified Status: Inactive Assessment and Plan: * Baseline Creatinine = 1.5 * In ED: Cr 1.08, BUN 16, GFR 49 * Stable Time Spent With Patient Time: Subjective Date/time seen: 06/16/24 07:11 Interval history: 79 y/o female with h/o HFrEF,, paroxysmal afib, T2DM, VAZQUEZ, CKD, anemia, aortic valve stenosis s/p valve replacement on chronic anticoagulation, and hiatal hernia who presented to the ED for n/v and dark stools. 06/16/2024 Patient is sitting comfortably at bedside upon time of examination. She denies any chest pain, shortness of breath, n/v at this time. Does endorse generalized abdominal discomfort, worse in upper abdomen. GI consulted and will appreciate recommendations. Plan to monitor H/H and INR with possible endoscopy inpatient. Review of Systems Review of Systems: 12 systems were reviewed and are negativ e except for as per HPI. Exam Narrative: General: Well-developed female supine in bed in no acute distress. Nontoxic in appearance. Weight: 73.3 kg. BMI: 29.6. HEENT: Wearing glasses. PERRL, EOMI. Conjunctivae anicteric. Moist mucous membranes. Neck: Supple. Respiratory: Respirations are even and nonlabored. Lungs are clear to auscultation bilaterally. Cardiovascular: Regular rate with normal S1-S2. Systolic murmur at upper sternal border with mechanical click. Gastrointestinal: Abdomen is soft and nondistended with positive bowel sounds. She is tender to palpation the epigastric region. No guarding or rebound tenderness. Skin: Warm and dry. Extremities: No cyanosis, clubbing, or significant edema. Radial and pedal pulses intact. Neurological: Alert. Cranial nerves 2-12 are grossly intact. No gross focal deficits to casual conversation. Psychiatric: Pleasant and cooperative with normal mood and affect. Judgment and insight intact. Objective Data Vital Signs Vital Signs: Vital Signs - 24 hr 06/15/24 13:29 06/15/24 14:28 06/15/24 15:57 Temperature Pulse Rate 60 63 64 Respiratory Rate 13 16 16 Blood Pressure 171/71 H 146/59 H 161/97 H Pulse Oximetry 97 99 97 Oxygen Delivery Room Air 06/15/24 17:06 06/15/24 18:15 06/15/24 19:45 Temperature 98.3 F Pulse Rate 62 87 Respiratory Rate 13 16 Blood Pressure 163/96 H 199/87 H Pulse Oximetry 99 97 Oxygen Delivery 06/15/24 20:52 06/15/24 20:53 06/15/24 21:40 Temperature Pulse Rate 70 69 69 Respiratory Rate 16 16 Blood Pressure 186/69 H Pulse Oximetry 97 97 Oxygen Delivery Room Air 06/15/24 22:00 06/16/24 06:00 Temperature 98.1 F 98.3 F Pulse Rate 60 60 Respiratory Rate 18 18 Blood Pressure 182/79 H 137/63 Pulse Oximetry 98 94 Oxygen Delivery Intake/Output Intake/Output: Intake & Output 06/13/24 06/14/24 06/15/24 06/16/24 23:59 23:59 23:59 23:59 Intake Total 1000 Balance 1000 Meds/Results Medications: Active Medications Generic Name Dose Route Start Last Admin Trade Name Freq PRN Reason Stop Dose Admin Acetaminophen 650 mg 06/15/24 19:25 Acetaminophen 325 Mg Tablet PO Q4H PRN Mild Pain (1-3) or Fever Alprazolam 0.25 mg 06/15/24 23:40 Alprazolam (*Crx) 0.25 Mg Tablet PO HS PRN Anxiety Furosemide 20 mg 06/16/24 09:00 Furosemide 20 Mg Tablet PO DAILY IAN Gabapentin 300 mg 06/15/24 06:00 06/16/24 00:51 Gabapentin 300 Mg Capsule PO 300 mg Q8HR IAN Administration Melatonin 5 mg 06/15/24 23:45 06/16/24 00:51 Melatonin 5 Mg Tablet PO 5 mg HS IAN Administration Methimazole 5 mg 06/16/24 09:00 Methimazole 5 Mg Tab PO DAILY IAN Metoprolol Succinate 25 mg 06/16/24 09:00 Metoprolol Succinate Ext Rel 25 Mg Tabcr PO DAILY IAN Ondansetron HCl 4 mg 06/15/24 19:25 Ondansetron Inj 4 Mg/2 Ml Vial IV PUSH Q4H PRN Nausea Pantoprazole Sodium 40 mg 06/15/24 23:40 06/16/24 00:52 Pantoprazole Sodium Iv 40 Mg Vial IV PUSH 40 mg Q12HR IAN Administration Polyethylene Glycol 17 gm 06/15/24 23:40 Polyethylene Glycol 3350 17 Gm Powd.Pack PO QAM PRN constipation Potassium Chloride 10 meq 06/16/24 21:00 Potassium Chloride 10 Meq Er Tablet PO HS IAN Simvastatin 10 mg 06/15/24 23:45 06/16/24 00:50 Simvastatin 10 Mg Tablet PO 10 mg HS IAN Administration Sotalol HCl 40 mg 06/16/24 09:00 Sotalol Hcl 40 Mg Tablet PO Q12HR IAN Venlafaxine HCl 150 mg 06/16/24 09:00 Venlafaxine Hcl Xr 75 Mg Cap.Er.24h PO DAILY IAN Radiology Results: ITS Impressions Abdomen/Pelvis CT 06/15/24 16:52 IMPRESSION: 1. No evidence of appendicitis, diverticulitis or intestinal obstruction. 2. Hyperdensity seen in the duodenal bulb. Upper GI endoscopy is advised. 3. Area of thickening in the sigmoid colon: Clinical correlation and follow-up advised. Chest X-Ray 06/15/24 18:44 IMPRESSION: Prominent markings with interstitial thickening in the lung bases which may indicate pneumonitis. Clinical correlation advised. Labs Labs: Laboratory Results - last 24 hr 06/15/24 06/15/24 06/15/24 14:41 15:52 18:17 WBC 7.9 RBC 3.83 L Hgb 12.4 Hct 40.2 MCV 105.0 H MCH 32.4 MCHC 30.8 L RDW 12.7 Plt Count 261 MPV 12.5 H Immature Gran % (Auto) 0.3 Neut % (Auto) 68.0 Lymph % (Auto) 17.5 L Nye % (Auto) 11.4 H Eos % (Auto) 1.8 Baso % (Auto) 1.0 Lymph # (Auto) 1.38 Nye # (Auto) 0.9 H Eos # (Auto) 0.1 Baso # (Auto) 0.1 Abs Immat Gran (auto) 0.02 Absolute Neuts (auto) 5.4 Absolute Nucleated RBC 0.000 Nucleated RBC % 0.0 PT 41.0 H INR 4.2 APTT 66.8 H Sodium 140 Potassium 4.0 Chloride 104 Carbon Dioxide 31 H Anion Gap 5 BUN 16 Creatinine 1.08 H Estim Creat Clear Calc 35 Estimated GFR 49 L Glucose 161 H Calcium 10.6 H Magnesium 1.5 L Total Bilirubin 0.5 AST 29 ALT 20 Alkaline Phosphatase 82 NT-Pro-B Natriuret Pep 5850 H Total Protein 8.0 Albumin 3.9 Lipase 83 TSH Thyroxine (T4) Urine Color Yellow Urine Appearance Clear Urine pH 5.5 Ur Specific [place] 1.028 Urine Protein Negative Urine Glucose (UA) Negative Urine Ketones Negative Ur Blood (Man) Negative Urine Nitrate Negative Urine Bilirubin Negative Urine Urobilinogen 0.2 Leukocyte Esterase Rfl 2+ H Urine RBC 0-2 Urine WBC 11-20 H Ur Squamous Epith Cells Occasional Urine Bacteria None seen Urine Casts 0-2 Influenza A (RT-PCR) Negative Influenza B (RT-PCR) Negative RSV (RT-PCR) Negative SARS-CoV-2 RNA (RT-PCR) Negative Blood Type A Positive Antibody Screen Negative 06/15/24 06/16/24 19:45 04:59 WBC 5.3 RBC 3.26 L Hgb 12.2 10.5 L Hct 38.2 33.6 L MCV 103.1 H MCH 32.2 MCHC 31.3 L RDW 12.5 Plt Count 236 MPV 13.0 H Immature Gran % (Auto) Neut % (Auto) Lymph % (Auto) Nye % (Auto) Eos % (Auto) Baso % (Auto) Lymph # (Auto) Nye # (Auto) Eos # (Auto) Baso # (Auto) Abs Immat Gran (auto) Absolute Neuts (auto) Absolute Nucleated RBC Nucleated RBC % PT 46.3 H INR 4.9 APTT 72.9 H Sodium 139 Potassium 3.7 Chloride 106 Carbon Dioxide 29 Anion Gap 4 BUN 14 Creatinine 0.99 Estim Creat Clear Calc 38 Estimated GFR 54 L Glucose 81 Calcium 9.9 Magnesium 2.2 Total Bilirubin AST ALT Alkaline Phosphatase NT-Pro-B Natriuret Pep Total Protein Albumin Lipase TSH 1.320 Thyroxine (T4) 7.08 Urine Color Urine Appearance Urine pH Ur Specific [place] Urine Protein Urine Glucose (UA) Urine Ketones Ur Blood (Man) Urine Nitrate Urine Bilirubin Urine Urobilinogen Leukocyte Esterase Rfl Urine RBC Urine WBC Ur Squamous Epith Cells Urine Bacteria Urine Casts Influenza A (RT-PCR) Influenza B (RT-PCR) RSV (RT-PCR) SARS-CoV-2 RNA (RT-PCR) Blood Type Antibody Screen Quality VTE Prophylaxis VTE prophylaxis: mechanical ordered
--- NOTE | 2024-06-16 08:11 | P.CONGI_ITS ---
Assessment and Plan Assessment and plan (1) Melena: Code(s): K92.1 - Melena Status: Acute (2) Current use of care home anticoagulation: Code(s): Z79.01 - senior care (current) use of anticoagulants Status: Acute (3) Supratherapeutic INR: Code(s): R79.1 - Abnormal coagulation profile Status: Acute (4) Abnormal digestive system diagnostic imaging: Code(s): R93.3 - Abnormal findings on diagnostic imaging of other parts of digestive tract Status: Acute (5) Cirrhosis: Code(s): K74.60 - Unspecified cirrhosis of liver Status: Acute (6) Esophageal abnormality: Code(s): K22.9 - Disease of esophagus, unspecified Status: Acute (7) Anemia of chronic disease: Code(s): D63.8 - Anemia in other chronic diseases classified elsewhere Status: Acute (8) Nausea and vomiting: Code(s): R11.2 - Nausea with vomiting, unspecified Status: Acute (9) Heme positive stool: Code(s): R19.5 - Other fecal abnormalities Status: Acute Plan 1. Melena/nausea and vomiting/abnormal imaging digestive/supratherapeutic INR/heme positive stools/abnormal swallow study: Last EGD 12/25/2014 showed gastric retention but otherwise normal. CT 06/15/2024 showed hyperdensity seen in the duodenal bulb. INR 4.9. Patient noted to have heme positive stools in March. Patient noted to have an abnormal modified barium swallow in March showing transient laryngeal penetration without aspiration. Patient was having nausea and vomiting for a few days prior to admission but denies any since admission. She states that she has chronically dark stool secondary to PO iron but prior to admission her stools had gotten darker. No BM since admission. * Continue Protonix 40 mg BID * Care with NSAIDs, ASA and anticoags * Considering chronic nature of anemia and current symptoms, if H/H continues to trend down or active bleeding noted may consider INR reversal with Vitamin K and FFP to get INR below 2.5 for endoscopic evaluation while inpatient 2. Anemia of chronic disease: Etiology likely multifactorial given CKD, mechanical heart valve, iron deficiency and GI bleed. Anemia chronic dating back to 2019 with average Hgb between 8-10. B12 and folate normal in March. H/H was actually normal on admission and treading down showing Hgb 12-->11 and Hct 40-->34. MCV 103. * Will recheck iron panel and B12/folate, primary care team to supplement if deficient * Primary care team to continue monitoring H/H and transfuse as needed to keep Hgb >7 3. Abnormal imaging digestive- sigmoid bowel wall thickening: CT this admission showed area of thickening in the sigmoid colon. No evidence of diverticulitis or intestinal obstruction. Patient states that SHIRT PRESSER she was having regular formed stools with occasional loose stools. She states that she also has constipation occasionally but quote was given a medication by her doctor which seems to help?. No BM since admission. Dark stools SHIRT PRESSER. * Colonoscopy recommended outpatient vs inpatient based on clinical presentation and INR level 4. Cirrhosis: Chest CTA done in March showed liver surface nodularity suspicious for cirrhosis. No history of or current LFT elevation. No known Hx of liver disease or prior liver abnormality noted on imaging. No Hx of thrombocytopenia and INR is chronically elevated secondary to anticoagulation. * Consider outpatient FibroScan for more definitive diagnosis Thank you very much for allowing me to share in the care of this very nice patient. This report may have been done utilizing a voice recognition system. Attempts have been made to correct errors. However, there may be uncorrected grammatical, spelling, and recognition errors present. GI Consult Note Consult date/time: 06/16/24 08:11 Reason for consult: melena HPI: Radha Huynh is a 79 year old female with PMSH of AFib on chronic anticoagulation, CHF, diabetes, VAZQUEZ, CKD, chronic anemia, aortic valve stenosis status post mechanical valve replacement 2013, hiatal hernia, depression, anxiety, HLD, hysterectomy. She presented to the ER yesterday with complaints of nausea, vomiting and dark stools. GI has been consulted for dark stools. Patient with Hx of chronic anemia. She was last seen by Dr. Longoria for PAOLA 03/30/2024 during a hospitalization for PAOLA at which time endoscopic evaluation was recommended once patient was more stable and INR at a safer level (2.5 or lower). Imaging this admission showed hyperdensity seen within the duodenal bulb and area of thickening in the sigmoid colon. Patient was noted to have an abnormal barium swallow in March of 2024 and prior CTA showed cirrhosis. ENDOSCOPY HISTORY: EGD: 12/25/[address] Montelongo for epigastric pain Findings: Esophagus was examined no abnormalities were seen The GE junction was located 40 cm from the incisors In the gastric body, a moderate amount of retained food was present The duodenum was examined with no abnormality seen COLONOSCOPY: [ ] Findings: [ ] Bx results: [ ] LABS AND STOOL STUDIES: Labs June 15-: Sodium 139, potassium 3.7, BUN 14, creatinine 0.99, GFR 54 WBC 5, Hgb 11, Hct 34, MCV 103, platelets 236, INR 4.9 Total bilirubin 0.5, AST 29, ALT 20, Alkaline Phos 82, albumin 3.9 magnesium 2.2, calcium 9.9, TSH 1.320, T4 7.05, BNP 5820 Labs March 2024: Total iron 13, TIBC 267, iron sat 5, ferritin 79.10, B12 636, folate 14.6 positive fecal occult blood IMAGING: CT abd/pelvis w/contrast 06/15/2024: IMPRESSION: 1. No evidence of appendicitis, diverticulitis or intestinal obstruction. 2. Hyperdensity seen in the duodenal bulb. Upper GI endoscopy is advised. 3. Area of thickening in the sigmoid colon: Clinical correlation and follow-up advised. Modified Barium Swallow 03/31/2024: IMPRESSION: Transient laryngeal penetration without aspiration with swallows of large amounts of thin liquids. Please correlate with speech pathologist findings and specific feeding recommendations. CTA chest 03/29/2024: IMPRESSION: 1. Bilateral pneumonia in the upper lobes and lower lobes. 2. No pulmonary embolus. 3. Liver surface nodularity suspicious for cirrhosis. CTA chest/abd/pelvis wo contrast 03/21/2024: IMPRESSION: CHEST: 1. No acute cardiopulmonary pathology. 2. Compression fracture of T6. MRI evaluation advised. ABDOMEN/PELVIS: 1. Hematoma in the left anterior abdominal wall. 2. Constipation. 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 Paroxysmal atrial fibrillation Irritable bowel syndrome Gallbladder disorder Arthritis Vitamin B12 deficiency Restless leg syndrome Congestive heart failure Echocardiogram in March 2021 showed normal FVC size, moderate LVH, borderline LV systolic function with an EF of 50 to 55%, and grade 1 diastolic dysfunction. Depression with anxiety Degenerative joint disease Burst fracture of thoracic vertebra Kidney stone Obstructive sleep apnea on CPAP Diverticulitis Hypertension Type 2 diabetes mellitus Chronic obstructive pulmonary disease Patient had a pulmonary function test on 02/24/2020 which was suggestive of COPD. Chronic anticoagulation Hyperlipidemia Herniated disc Surgical History Surgical History History of right knee surgery Ligamentous repair. History of bilateral cataract extraction History of mechanical aortic valve replacement (2003) [facility] valve. History of ankle surgery ORIF left ankle fracture. History of hysterectomy Family History Family History Mother Family history of cardiovascular disease Family history of arthritis CHF (congestive heart failure) Depression Family history of coronary artery disease Father Family history of cardiovascular disease Diabetes mellitus Family history of arthritis Acute myocardial infarction Family history of diabetes mellitus in first degree relative Sibling , cancer Family history of arthritis Malignant neoplasm of prostate Sibling Family history of arthritis Malignant neoplasm of prostate Social History Social History Social History: Surrogate decision maker: Izzy Martinez, daughter. Code status: Full code. Smoking packs per day: 1 Smoking cigarettes per day: 20.0 Years smoked: 5 Smoking pack-years: 5.00 Smoking status: Never smoker Tobacco type: cigarettes Second hand tobacco smoke exposure: No Alcohol intake: never Substance use: never Substance use type: does not use Do You Feel Safe in your Home?: Yes Lack of Transportation: YES Lack of Food: Sometimes True Current Housing: I Have Housing Concerned About Future Housing: No Difficulty Paying Gas/Electric Bills: No Difficulty Paying for Meds: No Currently Unemployed: No Education: Grade School Difficulty w/ Childcare or Family Care: No Living arrangements: alone Additional living arrangements comments: . She has 4 children. 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 Spiritual care concerns: No Agree to blood products: Yes Meds Home Medications and Allergies Home Medications ?Medication ?Instructions ?Recorded ?Confirmed ?Type gabapentin 300 mg capsule 300 mg PO Q8H 01/09/19 06/15/24 History venlafaxine 150 mg 150 mg PO DAILY 01/09/19 06/15/24 History capsule,extended release 24 hr furosemide 20 mg tablet 20 mg PO DAILY 03/18/22 06/15/24 History potassium chloride 10 mEq 10 meq PO HS 03/18/22 06/15/24 History tablet,extended release cholecalciferol (vitamin D3) 1,000 units PO DAILY 08/23/23 06/15/24 History simvastatin 10 mg PO HS 08/23/23 06/15/24 History cyanocobalamin (vitamin B-12) 1,000 mcg PO DAILY #30 caps 08/26/23 06/15/24 Rx 1,000 mcg capsule alprazolam 0.5 mg tablet 0.25 mg PO HS PRN Anxiety 11/01/23 06/15/24 History omeprazole 40 mg capsule,delayed 40 mg PO DAILY 11/01/23 06/15/24 History release warfarin 6 mg tablet 6 mg PO DAILY 03/08/24 06/15/24 History melatonin 5 mg tablet 5 mg PO HS #30 tabs 04/07/24 06/15/24 Rx methimazole 5 mg tablet 5 mg PO DAILY #90 tabs 05/06/24 06/15/24 Rx alendronate 35 mg tablet 35 mg PO WEEKLY 06/15/24 06/15/24 History metoprolol succinate 25 mg 25 mg PO DAILY 06/15/24 06/15/24 History tablet,extended release 24 hr polyethylene glycol 3350 17 gram 17 g PO QAM PRN constipation 06/15/24 06/15/24 History oral powder packet (Miralax) sotalol 80 mg tablet 40 mg PO BID 06/15/24 06/15/24 History warfarin 1 mg tablet 1 mg PO DAILY 06/15/24 06/15/24 History Allergies Allergy/AdvReac Type Severity Reaction Status Date / Time adhesive tape Allergy Intermediate Blister Verified 05/03/24 19:44 cortisone Allergy Intermediate Rash Verified 05/03/24 19:44 bacitracin Allergy Mild Rash Verified 05/03/24 19:44 neomycin Allergy Mild Rash Verified 05/03/24 19:44 polymyxin B Allergy Mild Rash Verified 05/03/24 19:44 Vital Signs Vital Signs - 24 hr 06/15/24 13:29 06/15/24 14:28 06/15/24 15:57 Temperature Pulse Rate 60 63 64 Respiratory Rate 13 16 16 Blood Pressure 171/71 H 146/59 H 161/97 H Pulse Oximetry 97 99 97 Oxygen Delivery Room Air 06/15/24 17:06 06/15/24 18:15 06/15/24 19:45 Temperature 98.3 F Pulse Rate 62 87 Respiratory Rate 13 16 Blood Pressure 163/96 H 199/87 H Pulse Oximetry 99 97 Oxygen Delivery 06/15/24 20:52 06/15/24 20:53 06/15/24 21:40 Temperature Pulse Rate 70 69 69 Respiratory Rate 16 16 Blood Pressure 186/69 H Pulse Oximetry 97 97 Oxygen Delivery Room Air 06/15/24 22:00 06/16/24 06:00 Temperature 98.1 F 98.3 F Pulse Rate 60 60 Respiratory Rate 18 18 Blood Pressure 182/79 H 137/63 Pulse Oximetry 98 94 Oxygen Delivery Results Labs 06/16/24 04:59 06/16/24 04:59 Labs: Short CBC 06/15/24 06/15/24 06/16/24 Range/Units 15:52 19:45 04:59 WBC 7.9 5.3 (4.5-10.0) K/mm3 Hgb 12.4 12.2 10.5 L (12.0-15.0) g/dL Hct 40.2 38.2 33.6 L (37.0-47.0) % Plt Count 261 236 (150-375) k/mm3 BMP 06/15/24 06/16/24 15:52 04:59 Sodium 140 139 Potassium 4.0 3.7 Chloride 104 106 Carbon Dioxide 31 H 29 BUN 16 14 Creatinine 1.08 H 0.99 Glucose 161 H 81 Calcium 10.6 H 9.9 Liver Function 06/15/24 Range/Units 15:52 Total Bilirubin 0.5 (0.2-1.3) mg/dL AST 29 (14-36) U/L ALT 20 (6-35) U/L Alkaline Phosphatase 82 (38-126) U/L Albumin 3.9 (3.5-5.1) g/dL Urine 06/15/24 Range/Units 18:17 Urine Color Yellow (Yellow) Urine Appearance Clear (Clear) Urine pH 5.5 (5.0-9.0) Ur Specific [place] 1.028 (1.001-1.035) Urine Protein Negative (Negative) mg/dL Urine Glucose (UA) Negative (Negative) mg/dL
[2024-06-16 08:20] LABS: Glucose Point of Care 73 mg/dl (65-105)
[2024-06-16] MEDS: VENLAFAXINE HCL XR 75 MG CAP.ER.24H 150 MG PO (09:05)
[2024-06-16] MEDS: FUROSEMIDE 20 MG TABLET PO (09:06)
[2024-06-16 09:07] VITALS: PULSE 80
[2024-06-16] MEDS: SOTALOL HCL 40 MG TABLET PO ×2 (09:07→20:18)
[2024-06-16] MEDS: methiMAzole 5 MG TAB PO (09:07)
[2024-06-16] MEDS: METOPROLOL SUCCINATE EXT REL 25 MG TABCR PO (09:07)
[2024-06-16 11:50] LABS: Glucose Point of Care 88 mg/dl (65-105)
[2024-06-16 13:08] LABS: Toxigenic C. Diff NEGATIVE (NEGATIVE)
[2024-06-16 13:51] LABS: Folic Acid > 20.0 ng/mL (2.76->20)
[2024-06-16 14:00] VITALS: BP 172/50; PULSE 55; RESP 20; TEMP 36.7; O2SAT 100
[2024-06-16 16:09] LABS: Iron 48 ug/dL (37-170)
[2024-06-16 16:25] LABS: Percent Iron Saturation 23 % (20-50)
[2024-06-16 16:37] LABS: Glucose Point of Care 165 mg/dl (65-105)
[2024-06-16 19:54] VITALS: BP 148/52; PULSE 80; RESP 18; TEMP 37; O2SAT 94
[2024-06-16 20:10] LABS: Glucose Point of Care 118 mg/dl (65-105)
[2024-06-16] MEDS: POTASSIUM CHLORIDE 10 MEQ ER TABLET PO (20:17)
[2024-06-16 20:18] VITALS: PULSE 80
[2024-06-17 05:22] VITALS: BP 143/55; PULSE 53; RESP 18; TEMP 36.3; O2SAT 94
--- NOTE | 2024-06-17 07:03 | P.PNIM_ITS ---
Progress Note: A&P Assessment and Plan (1) Dark stools: Code(s): R19.5 - Other fecal abnormalities Status: Acute Assessment and Plan: * Monitor serum electrolytes, CBC, hemoglobin/hematocrit q.8 hours. If hemog lobin drops below 7 transfuse packed red blood cells * Monitor for bloody bowel movements, chest pain, SOB or dizziness/lightheadedness * Pantoprazole BID * Diet: NPO * DVT Px: SCDs * Holding warfarin * GI consulted * Continue Protonix, care w/ NSAIDs, ASA and Anticoag * H/H continues to trend down or active bleeding noted may consider INR reversal with Vitamin K and FFP to get INR below 2.5 for endoscopic evaluation while inpatient * Recheck Iron panel, B12/Folate (2) Hypomagnesemia: Code(s): E83.42 - Hypomagnesemia Status: Acute Assessment and Plan: * In ED: 1.5 * Given supplementation * Monitor daily (3) Supratherapeutic INR: Code(s): R79.1 - Abnormal coagulation profile Status: Acute Assessment and Plan: * Mechanical Valve goal = 3.0 * In ED: INR 4.2 (4) History of mechanical aortic valve replacement: Onset Date: 2003 Code(s): Z95.2 - Presence of prosthetic heart valve Status: Acute Assessment and Plan: * Replacement in 2003 (5) Congestive heart failure: Code(s): I50.9 - Heart failure, unspecified Status: Acute Assessment and Plan: * Volume status = Euvolemic * BNP= 5850 * Stable (6) Paroxysmal atrial fibrillation: Code(s): I48.0 - Paroxysmal atrial fibrillation Status: Acute Assessment and Plan: * Hold Warfarin (7) Diet-controlled type 2 diabetes mellitus: Code(s): E11.9 - Type 2 diabetes mellitus without complications Status: Acute Assessment and Plan: * Diet controlled * hypoglycemia protocol * POC blood glucose ACHS * home medication - none * A1C (01/28) = 6.2 (8) Chronic kidney disease: Qualifiers: Chronic kidney disease stage: unspecified stage Qualified Code(s): N18.9 - Chronic kidney disease, unspecified Code(s): N18.9 - Chronic kidney disease, unspecified Status: Inactive Assessment and Plan: * Baseline Creatinine = 1.5 * In ED: Cr 1.08, BUN 16, GFR 49 * Stable Subjective Date/time seen: 06/17/24 07:03 Interval history: 79 y/o female with h/o HFrEF,, paroxysmal afib, T2DM, VAZQUEZ, CKD, anemia, aortic valve stenosis s/p valve replacement on chronic anticoagulation, and hiatal hernia who presented to the ED for n/v and dark stools. 06/17/2024 Patient is sitting comfortably at bedside upon time of examination. Review of Systems Review of Systems: 12 systems were reviewed and are negativ e except for as per HPI. Exam Narrative: General: Well-developed female supine in bed in no acute distress. Nontoxic in appearance. Weight: 73.3 kg. BMI: 29.6. HEENT: Wearing glasses. PERRL, EOMI. Conjunctivae anicteric. Moist mucous membranes. Neck: Supple. Respiratory: Respirations are even and nonlabored. Lungs are clear to auscultation bilaterally. Cardiovascular: Regular rate with normal S1-S2. Systolic murmur at upper sternal border with mechanical click. Gastrointestinal: Abdomen is soft and nondistended with positive bowel sounds. She is tender to palpation the epigastric region. No guarding or rebound tenderness. Skin: Warm and dry. Extremities: No cyanosis, clubbing, or significant edema. Radial and pedal pulses intact. Neurological: Alert. Cranial nerves 2-12 are grossly intact. No gross focal deficits to casual conversation. Psychiatric: Pleasant and cooperative with normal mood and affect. Judgment and insight intact. Objective Data Vital Signs Vital Signs: Vital Signs - 24 hr 06/16/24 09:07 06/16/24 09:07 06/16/24 14:00 Temperature 98.1 F Pulse Rate 80 80 55 L Respiratory Rate 20 Blood Pressure 172/50 H Pulse Oximetry 100 Oxygen Delivery 06/16/24 19:54 06/16/24 20:18 06/16/24 20:18 Temperature 98.6 F Pulse Rate 80 80 Respiratory Rate 18 Blood Pressure 148/52 H Pulse Oximetry 94 Oxygen Delivery Room Air 06/17/24 05:22 Temperature 97.4 F L Pulse Rate 53 L Respiratory Rate 18 Blood Pressure 143/55 H Pulse Oximetry 94 Oxygen Delivery Intake/Output Intake/Output: Intake & Output 06/14/24 06/15/24 06/16/24 06/17/24 23:59 23:59 23:59 23:59 Intake Total 1000 1180 100 Output Total 250 100 Balance 1000 930 0 Meds/Results Medications: Active Medications Generic Name Dose Route Start Last Admin Trade Name Freq PRN Reason Stop Dose Admin Acetaminophen 650 mg 06/15/24 19:25 Acetaminophen 325 Mg Tablet PO Q4H PRN Mild Pain (1-3) or Fever Alprazolam 0.25 mg 06/15/24 23:40 Alprazolam (*Crx) 0.25 Mg Tablet PO HS PRN Anxiety Furosemide 20 mg 06/16/24 09:00 06/16/24 09:06 Furosemide 20 Mg Tablet PO 20 mg DAILY IAN Administration Melatonin 5 mg 06/15/24 23:45 06/16/24 20:17 Melatonin 5 Mg Tablet PO 5 mg HS IAN Administration Methimazole 5 mg 06/16/24 09:00 06/16/24 09:07 Methimazole 5 Mg Tab PO 5 mg DAILY IAN Administration Metoprolol Succinate 25 mg 06/16/24 09:00 06/16/24 09:07 Metoprolol Succinate Ext Rel 25 Mg Tabcr PO 25 mg DAILY IAN Administration Ondansetron HCl 4 mg 06/15/24 19:25 Ondansetron Inj 4 Mg/2 Ml Vial IV PUSH Q4H PRN Nausea Pantoprazole Sodium 40 mg 06/15/24 23:40 06/16/24 20:17 Pantoprazole Sodium Iv 40 Mg Vial IV PUSH 40 mg Q12HR IAN Administration Polyethylene Glycol 17 gm 06/15/24 23:40 Polyethylene Glycol 3350 17 Gm Powd.Pack PO QAM PRN constipation Potassium Chloride 10 meq 06/16/24 21:00 06/16/24 20:17 Potassium Chloride 10 Meq Er Tablet PO 10 meq HS IAN Administration Simvastatin 10 mg 06/15/24 23:45 06/16/24 20:18 Simvastatin 10 Mg Tablet PO 10 mg HS IAN Administration Sotalol HCl 40 mg 06/16/24 09:00 06/16/24 20:18 Sotalol Hcl 40 Mg Tablet PO 40 mg Q12HR IAN Administration Venlafaxine HCl 150 mg 06/16/24 09:00 06/16/24 09:05 Venlafaxine Hcl Xr 75 Mg Cap.Er.24h PO 150 mg DAILY IAN Administration Radiology Results: ITS Impressions Abdomen/Pelvis CT 06/15/24 16:52 IMPRESSION: 1. No evidence of appendicitis, diverticulitis or intestinal obstruction. 2. Hyperdensity seen in the duodenal bulb. Upper GI endoscopy is advised. 3. Area of thickening in the sigmoid colon: Clinical correlation and follow-up advised. Chest X-Ray 06/15/24 18:44 IMPRESSION: Prominent markings with interstitial thickening in the lung bases which may indicate pneumonitis. Clinical correlation advised. Labs Labs: Laboratory Results - last 24 hr 06/16/24 06/16/24 06/16/24 04:52 07:39 11:41 POC Capillary Glucose 73 88 Iron 48 TIBC 207 L % Saturation 23 Vitamin B12 906.0 Folate > 20.0 H C. difficile (PCR) 06/16/24 06/16/24 06/16/24 11:59 16:30 19:51 POC Capillary Glucose 165 H 118 H Iron TIBC % Saturation Vitamin B12 Folate C. difficile (PCR) Negative Quality VTE Prophylaxis VTE prophylaxis: mechanical ordered
[2024-06-17 07:17] LABS: Basophils Absolute Auto 0.1 K/mm3 (0.0-0.1); Basophils Percent Auto 1.4 % (0.2-1.2); Eosinophils Absolute Auto 0.3 K/mm3 (0-0.3); Eosinophils Percent Auto 5.8 % (0-4.4); Hematocrit 34.3 % (37.0-47.0); Hemoglobin 10.7 g/dL (12.0-15.0); Immature Granulocyte Absolute 0.01 K/mm3 (0.00-0.031); Immature Granulocyte Percent A 0.2 % (0-0.5); Lymphocytes Absolute Auto 1.57 K/mm3 (0.9-3.2); Lymphocytes Percent Auto 31.3 % (18.3-44.2); Mean Corpuscular HGB Conc 31.2 g/dl (32-36); Mean Corpuscular Hemoglobin 32.4 pg (26-34); Mean Corpuscular Volume 103.9 fl (80-100); Mean Platelet Volume 12.6 fl (7.4-10.4); Monocytes Absolute Auto 0.6 K/mm3 (0.1-0.6); Neutrophils Absolute Auto 2.5 K/mm3 (1.3-6.7); Neutrophils Percent Auto 49.3 % (45.5-73.1); Platelet Count Result 223 k/mm3 (150-375); Red Cell Distribution Width 12.6 % (11.5-14.5)
[2024-06-17 07:32] LABS: Alanine Aminotransferase 15 U/L (6-35); Albumin Level 3.2 g/dL (3.5-5.1); Alkaline Phosphatase 65 U/L (38-126); Anion Gap 2 mmol/L (4-12); Aspartate Amino Transferase 24 U/L (14-36); Bilirubin,Total 0.7 mg/dL (0.2-1.3); Blood Urea Nitrogen 12 mg/dL (7-17); Calcium 9.8 mg/dL (8.4-10.2); Carbon Dioxide 32 mmol/L (22-30); Chloride 104 mmol/L (98-107); Estimated CRCL calculation 37 ml/min; Estimated Glomerular Filt Rate 52; Glucose 77 mg/dL (65-110); Potassium 3.9 mmol/L (3.4-5.0); Sodium 138 mmol/L (137-145)
[2024-06-17 08:04] LABS: Glucose Point of Care 73 mg/dl (65-105)
[2024-06-17 09:05] VITALS: PULSE 60
[2024-06-17] MEDS: SOTALOL HCL 40 MG TABLET PO (09:05)
[2024-06-17 09:06] VITALS: PULSE 60
[2024-06-17] MEDS: VENLAFAXINE HCL XR 75 MG CAP.ER.24H 150 MG PO (09:06)
[2024-06-17] MEDS: FUROSEMIDE 20 MG TABLET PO (09:06)
[2024-06-17] MEDS: methiMAzole 5 MG TAB PO (09:06)
[2024-06-17] MEDS: PANTOPRAZOLE SODIUM IV 40 MG VIAL IV PUSH (09:06)
[2024-06-17] MEDS: METOPROLOL SUCCINATE EXT REL 25 MG TABCR PO (09:06)
[2024-06-17 11:34] LABS: Glucose Point of Care 116 mg/dl (65-105)
[2024-06-17 11:53] VITALS: O2SAT 94
--- NOTE | 2024-06-17 13:40 | P.DS_ITS ---
DS: Admitting Diagnosis Discharge Date 06/17/2024 Admitting Diagnosis Dark stools Nausea DS: Discharge Diagnosis Discharge Diagnosis (1) Dark stools: Code(s): R19.5 - Other fecal abnormalities Status: Acute (2) Hypomagnesemia: Code(s): E83.42 - Hypomagnesemia Status: Acute (3) Supratherapeutic INR: Code(s): R79.1 - Abnormal coagulation profile Status: Acute (4) History of mechanical aortic valve replacement: Onset Date: 2003 Code(s): Z95.2 - Presence of prosthetic heart valve Status: Acute (5) Congestive heart failure: Code(s): I50.9 - Heart failure, unspecified Status: Acute (6) Paroxysmal atrial fibrillation: Code(s): I48.0 - Paroxysmal atrial fibrillation Status: Acute (7) Diet-controlled type 2 diabetes mellitus: Code(s): E11.9 - Type 2 diabetes mellitus without complications Status: Acute (8) Chronic kidney disease: Qualifiers: Chronic kidney disease stage: unspecified stage Qualified Code(s): N18.9 - Chronic kidney disease, unspecified Code(s): N18.9 - Chronic kidney disease, unspecified Status: Inactive DS: Summary Hospital Course Reason for hospitalization: Nausea, dark stools Hospital Course: This is a very pleasant 79-year-old female with history of heart failure with reduced ejection fraction,, paroxysmal atrial fibrillation, type 2 diabetes, sleep apnea, chronic kidney disease, anemia, aortic valve stenosis status post mechanical valve replacement on chronic anticoagulation, and hiatal hernia who presented for evaluation of nausea, vomiting, and dark stools. Endorses nausea and vomiting after meals. She had 1 episode of diarrhea today which was dark in color. She recently changed vitamins to one that includes iron and has had darker stools since then. Denies sick contacts, syncope, near syncope, chest pain, epigastric and abdominal pain, bloating, belching, hematemesis, and concerns for aspiration. In the ED: Blood pressures have been in the 170s to 190s systolic. The remainder of her vital signs have been stable. Labs were significant for WBC count of 7.9, hemoglobin 12.4, PT 41, INR 4.2, PTT 66.8, BUN 16, creatinine 1.08, magnesium 1.5, proBNP 5850. CT of the abdomen and pelvis showed a hyperdensity in the duodenal bulb an area of thickening in the sigmoid colon. She is being admitted in this setting for closer monitoring and consult with GI. She was seen by Dr. Velasco of gastroenterology during her visit. Denies any odynophagia, reflux, regurgitation, early satiety, appetite loss, or hematoc hezia. No records of a colonoscopy in the past. She has no evidence of bleeding. GI agrees that CT scan likely artifact. At this time she denies any nausea or vomiting. She denies any blood stools passed while in the hospital. GI signs off and agrees that out patient management will be appropriate. CBC and CMP are within normal limits or near baseline x2. Pt otherwise stable for discharge and is agreeable to this. Time Spent with Patient Time attestation: Total time spent providing and/or coordinating discharge services:45 Exam Narrative: General: Well-developed female supine in bed in no acute distress. Nontoxic in appearance. Weight: 73.3 kg. BMI: 29.6. HEENT: Wearing glasses. PERRL, EOMI. Conjunctivae anicteric. Moist mucous membranes. Neck: Supple. Respiratory: Respirations are even and nonlabored. Lungs are clear to auscultation bilaterally. Cardiovascular: Regular rate with normal S1-S2. Systolic murmur at upper sternal border with mechanical click. Gastrointestinal: Abdomen is soft and nondistended with positive bowel sounds. She is nontender. No guarding or rebound tenderness. Skin: Warm and dry. Extremities: No cyanosis, clubbing, or significant edema. Radial and pedal pulses intact. Neurological: Alert. Cranial nerves 2-12 are grossly intact. No gross focal deficits to casual conversation. Psychiatric: Pleasant and cooperative with normal mood and affect. Judgment and insight intact. DS: Data Data Completed and Pending Labs on day of discharge: Labs from last 24 hours 06/17/24 06/17/24 06/17/24 11:29 07:52 07:08 WBC 5.0 RBC 3.30 L Hgb 10.7 L Hct 34.3 L MCV 103.9 H MCH 32.4 MCHC 31.2 L RDW 12.6 Plt Count 223 MPV 12.6 H Immature Gran % (Auto) 0.2 Neut % (Auto) 49.3 Lymph % (Auto) 31.3 [place] % (Auto) 12.0 H Eos % (Auto) 5.8 H Baso % (Auto) 1.4 H Lymph # (Auto) 1.57 [place] # (Auto) 0.6 Eos # (Auto) 0.3 Baso # (Auto) 0.1 Abs Immat Gran (auto) 0.01 Absolute Neuts (auto) 2.5 Absolute Nucleated RBC 0.000 Nucleated RBC % 0.0 Sodium 138 Potassium 3.9 Chloride 104 Carbon Dioxide 32 H Anion Gap 2 L BUN 12 Creatinine 1.03 H Estim Creat Clear Calc 37 Estimated GFR 52 L Glucose 77 POC Capillary Glucose 116 H 73 Calcium 9.8 Iron TIBC % Saturation Total Bilirubin 0.7 AST 24 ALT 15 Alkaline Phosphatase 65 Total Protein 6.0 L Albumin 3.2 L Vitamin B12 Folate 06/16/24 06/16/24 06/16/24 19:51 16:30 04:52 WBC RBC Hgb Hct MCV MCH MCHC RDW Plt Count MPV Immature Gran % (Auto) Neut % (Auto) Lymph % (Auto) [place] % (Auto) Eos % (Auto) Baso % (Auto) Lymph # (Auto) [place] # (Auto) Eos # (Auto) Baso # (Auto) Abs Immat Gran (auto) Absolute Neuts (auto) Absolute Nucleated RBC Nucleated RBC % Sodium Potassium Chloride Carbon Dioxide Anion Gap BUN Creatinine Estim Creat Clear Calc Estimated GFR Glucose POC Capillary Glucose 118 H 165 H Calcium Iron 48 TIBC 207 L % Saturation 23 Total Bilirubin AST ALT Alkaline Phosphatase Total Protein Albumin Vitamin B12 906.0 Folate > 20.0 H Discharge Plan Discharge Attending physician on discharge: Ricky Delatorre Consulting providers: Ryan Wilder Discharging Clinician: Ricky Delatorre Anticipated Discharge Date/Time: 06/17/24 13:38 Patient Disposition: Home Activity: as tolerated Diet: as tolerated Discharge Instructions: Discharge disposition: Stable Take medications as prescribed Monitor blood pressures Take caution while standing, rising, or moving Change positions slowly taking a break between each position change If you standing feel dizzy sit back down and take a break Encouraged to continue with yearly vaccinations Return to the emergency department if he developed sudden shortness of breath, chest pain, nausea, vomiting, upset stomach or intractable diarrhea Return to the emergency department if you develop fever greater than 101.5 Follow-up with the primary care physician within 1-2 weeks Call the office of Dr. Ryan Velasco to followup with his office as soon as possible. Thank you for choosing [facility] for your healthcare needs Patient Instructions: Antibiotic Form, Warfarin (By mouth) Patient Language: Grenadian Stand Alone Forms: General Discharge Information Follow-up/Referrals: Darin,DO Sanjeev [Primary Care Provider] - Ryan Wilder MD [Physician] - Discharge Medications: Continued simvastatin 10 mg PO HS cholecalciferol (vitamin D3) 1,000 units PO DAILY cyanocobalamin (vitamin B-12) 1,000 mcg capsule 1,000 mcg PO DAILY Qty: 30 0RF venlafaxine 150 mg Capsule,Extended Release 24hr 150 mg PO DAILY potassium chloride 10 mEq tablet extended release 10 meq PO HS furosemide 20 mg tablet 20 mg PO DAILY omeprazole 40 mg capsule,delayed release(DR/EC) 40 mg PO DAILY alprazolam 0.5 mg tablet 0.25 mg PO HS PRN (Reason: Anxiety) warfarin 6 mg tablet 6 mg PO DAILY melatonin 5 mg Tablet 5 mg PO HS Qty: 30 0RF metoprolol succinate 25 mg tablet extended release 24 hr 25 mg PO DAILY warfarin 1 mg tablet 1 mg PO DAILY alendronate 35 mg tablet 35 mg PO WEEKLY Rx Instructions: thursday polyethylene glycol 3350 [Miralax] 17 gram Powder In Packet 17 g PO QAM PRN (Reason: constipation) sotalol 80 mg tablet 40 mg PO BID methimazole 5 mg tablet 5 mg PO DAILY Qty: 90 3RF Date of admission: 06/16/24 08:04 Primary Care Provider: DarinSanjeev Admitting Provider: Raz Tuttle Attending physician on admission: Ricky Delatorre Condition: Stable Quality VTE Prophylaxis VTE prophylaxis: mechanical ordered Hospitalist MIPS Heart Failure (Exclusion) Patient has history of Heart Transplant or Left Ventricular Assistive Device?: No IF YES, STOP HERE Heart Failure (Qualifier) Patient has current or prior documentation of LVEF less than or equal to 40%, or mod/servere depressed LVSF?: No IF NO, STOP HERE
--- NOTE | 2024-06-17 13:45 | WPDGIPROGNO ---
Progress Note: A&P Assessment and Plan (1) Nausea and vomiting: Code(s): R11.2 - Nausea with vomiting, unspecified Status: Acute Assessment and Plan: resolved no signs of overt gib hgb has been stable, no need to do endoscopic will follow as needed (2) Dark stools: Code(s): R19.5 - Other fecal abnormalities Status: Acute Assessment and Plan: she is using iron no signs of bleeding but primary will need to monitor cbc and inr (she came in with supra therapeutic inr, target probably 2.5-3 instead) (3) Supratherapeutic INR: Code(s): R79.1 - Abnormal coagulation profile Status: Acute (4) History of mechanical aortic valve replacement: Onset Date: 2003 Code(s): Z95.2 - Presence of prosthetic heart valve Status: Acute (5) HTN (hypertension): Qualifiers: Hypertension type: primary hypertension Qualified Code(s): I10 - Essential (primary) hypertension Code(s): I10 - Essential (primary) hypertension Status: Acute (6) Congestive heart failure: Code(s): I50.9 - Heart failure, unspecified Status: Acute Subjective Date/time seen: 06/17/24 13:45 Interval history: she is doing ok, good appetite, no abdominal pain, denies gib Review of Systems Review of Systems: All systems reviewed & are unremarkable except as noted in HPI and below Exam Narrative: General: Well-developed female supine in bed in no acute distress. HEENT: Wearing glasses. PERRL, EOMI. Neck: Supple. Respiratory: Respirations are even and nonlabored. Lungs are clear to auscultation bilaterally. Cardiovascular: Regular rate with normal S1-S2. Systolic murmur at upper sternal border with mechanical click. Gastrointestinal: Abdomen is soft and nondistended with positive bowel sounds. No guarding or rebound tenderness. Skin: Warm and dry. Extremities: No cyanosis, clubbing, or significant edema. Radial and pedal pulses intact. Neurological: Alert. Cranial nerves 2-12 are grossly intact. No gross focal deficits to casual conversation. Psychiatric: Pleasant and cooperative with normal mood and affect. Judgment and insight intact. Objective Data Vital Signs Vital Signs: Vital Signs - 24 hr 06/16/24 14:00 06/16/24 19:54 06/16/24 20:18 Temperature 98.1 F 98.6 F Pulse Rate 55 L 80 80 Respiratory Rate 20 18 Blood Pressure 172/50 H 148/52 H Pulse Oximetry 100 94 Oxygen Delivery 06/16/24 20:18 06/17/24 05:22 06/17/24 09:05 Temperature 97.4 F L Pulse Rate 53 L 60 Respiratory Rate 18 Blood Pressure 143/55 H Pulse Oximetry 94 Oxygen Delivery Room Air 06/17/24 09:06 06/17/24 11:53 Temperature Pulse Rate 60 Respiratory Rate Blood Pressure Pulse Oximetry 94 Oxygen Delivery Room Air Intake/Output Intake/Output: Intake & Output 06/14/24 06/15/24 06/16/24 06/17/24 23:59 23:59 23:59 23:59 Intake Total 1000 1180 640 Output Total 250 100 Balance 1000 930 540 Meds/Results Medications: Active Medications Generic Name Dose Route Start Last Admin Trade Name Freq PRN Reason Stop Dose Admin Acetaminophen 650 mg 06/15/24 19:25 Acetaminophen 325 Mg Tablet PO Q4H PRN Mild Pain (1-3) or Fever Alprazolam 0.25 mg 06/15/24 23:40 Alprazolam (*Crx) 0.25 Mg Tablet PO HS PRN Anxiety Furosemide 20 mg 06/16/24 09:00 06/17/24 09:06 Furosemide 20 Mg Tablet PO 20 mg DAILY IAN Administration Melatonin 5 mg 06/15/24 23:45 06/16/24 20:17 Melatonin 5 Mg Tablet PO 5 mg HS IAN Administration Methimazole 5 mg 06/16/24 09:00 06/17/24 09:06 Methimazole 5 Mg Tab PO 5 mg DAILY IAN Administration Metoprolol Succinate 25 mg 06/16/24 09:00 06/17/24 09:06 Metoprolol Succinate Ext Rel 25 Mg Tabcr PO 25 mg DAILY IAN Administration Ondansetron HCl 4 mg 06/15/24 19:25 Ondansetron Inj 4 Mg/2 Ml Vial IV PUSH Q4H PRN Nausea Pantoprazole Sodium 40 mg 06/15/24 23:40 06/17/24 09:06 Pantoprazole Sodium Iv 40 Mg Vial IV PUSH 40 mg Q12HR IAN Administration Polyethylene Glycol 17 gm 06/15/24 23:40 Polyethylene Glycol 3350 17 Gm Powd.Pack PO QAM PRN constipation Potassium Chloride 10 meq 06/16/24 21:00 06/16/24 20:17 Potassium Chloride 10 Meq Er Tablet PO 10 meq HS IAN Administration Simvastatin 10 mg 06/15/24 23:45 06/16/24 20:18 Simvastatin 10 Mg Tablet PO 10 mg HS IAN Administration Sotalol HCl 40 mg 06/16/24 09:00 06/17/24 09:05 Sotalol Hcl 40 Mg Tablet PO 40 mg Q12HR IAN Administration Venlafaxine HCl 150 mg 06/16/24 09:00 06/17/24 09:06 Venlafaxine Hcl Xr 75 Mg Cap.Er.24h PO 150 mg DAILY IAN Administration Radiology Results: ITS Impressions Abdomen/Pelvis CT 06/15/24 16:52 IMPRESSION: 1. No evidence of appendicitis, diverticulitis or intestinal obstruction. 2. Hyperdensity seen in the duodenal bulb. Upper GI endoscopy is advised. 3. Area of thickening in the sigmoid colon: Clinical correlation and follow-up advised. Chest X-Ray 06/15/24 18:44 IMPRESSION: Prominent markings with interstitial thickening in the lung bases which may indicate pneumonitis. Clinical correlation advised. Labs Labs: Laboratory Results - last 24 hr 06/16/24 06/16/24 06/16/24 04:52 16:30 19:51 WBC RBC Hgb Hct MCV MCH MCHC RDW Plt Count MPV Immature Gran % (Auto) Neut % (Auto) Lymph % (Auto) [place] % (Auto) Eos % (Auto) Baso % (Auto) Lymph # (Auto) [place] # (Auto) Eos # (Auto) Baso # (Auto) Abs Immat Gran (auto) Absolute Neuts (auto) Absolute Nucleated RBC Nucleated RBC % Sodium Potassium Chloride Carbon Dioxide Anion Gap BUN Creatinine Estim Creat Clear Calc Estimated GFR Glucose POC Capillary Glucose 165 H 118 H Calcium Iron 48 TIBC 207 L % Saturation 23 Total Bilirubin AST ALT Alkaline Phosphatase Total Protein Albumin Vitamin B12 906.0 Folate > 20.0 H 06/17/24 06/17/24 06/17/24 07:08 07:52 11:29 WBC 5.0 RBC 3.30 L Hgb 10.7 L Hct 34.3 L MCV 103.9 H MCH 32.4 MCHC 31.2 L RDW 12.6 Plt Count 223 MPV 12.6 H Immature Gran % (Auto) 0.2 Neut % (Auto) 49.3 Lymph % (Auto) 31.3 [place] % (Auto) 12.0 H Eos % (Auto) 5.8 H Baso % (Auto) 1.4 H Lymph # (Auto) 1.57 [place] # (Auto) 0.6 Eos # (Auto) 0.3 Baso # (Auto) 0.1 Abs Immat Gran (auto) 0.01 Absolute Neuts (auto) 2.5 Absolute Nucleated RBC 0.000 Nucleated RBC % 0.0 Sodium 138 Potassium 3.9 Chloride 104 Carbon Dioxide 32 H Anion Gap 2 L BUN 12 Creatinine 1.03 H Estim Creat Clear Calc 37 Estimated GFR 52 L Glucose 77 POC Capillary Glucose 73 116 H Calcium 9.8 Iron TIBC % Saturation Total Bilirubin 0.7 AST 24 ALT 15 Alkaline Phosphatase 65 Total Protein 6.0 L Albumin 3.2 L Vitamin B12 Folate
[2024-06-17 13:47] VITALS: BP 150/54; PULSE 58; RESP 16; TEMP 36.4; O2SAT 100
== END 2024-06-17 15:20 | disposition home or self-care (01) | DRG 392 ==
LOC: ANHED 19:25 → ANH2MED 20:51
PROVIDERS: Nurse Practitioner Family; Physician Assistant; Admitting Provider General Practice; Emergency Provider Student in an Organized Health Care Education/Training Program; PCP Student in an Organized Health Care Education/Training Program; Visit Provider Physician Assistant
DX: R19.5 Other fecal abnormalities (principal); I50.32 Chronic diastolic (congestive) heart failure; K52.9 Noninfective gastroenteritis and colitis, unspecified; R11.2 Nausea with vomiting, unspecified; R79.1 Abnormal coagulation profile; E11.22 Type 2 diabetes mellitus with diabetic chronic kidney disease; N18.9 Chronic kidney disease, unspecified; I50.9 Heart failure, unspecified; E83.42 Hypomagnesemia; J98.4 Other disorders of lung; E86.0 Dehydration; I48.0 Paroxysmal atrial fibrillation; I35.0 Nonrheumatic aortic (valve) stenosis; K44.9 Diaphragmatic hernia without obstruction or gangrene; G25.81 Restless legs syndrome; G47.33 Obstructive sleep apnea (adult) (pediatric); K74.60 Unspecified cirrhosis of liver; D63.1 Anemia in chronic kidney disease; F41.8 Other specified anxiety disorders; R13.10 Dysphagia, unspecified; J44.9 Chronic obstructive pulmonary disease, unspecified; E78.5 Hyperlipidemia, unspecified; Z95.2 Presence of prosthetic heart valve; Z79.01 Long term (current) use of anticoagulants; Z90.710 Acquired absence of both cervix and uterus
CPT/HCPCS: 36415; 71045; 74177; 80048; 80053; 81001; 82607; 82746; 82948; 83540; 83550; 83690; 83735; 83880; 84436; 84443; 85014; 85018; 85025; 85027; 85610; 85730; 86850; 86900; 86901; 87086; 87493; 87637; 96361; 96375; 96376; 99285; A9270; G0378; J2405; J2470; J3475; J7030; Q9967

== ENCOUNTER 2024-12-13 12:21 | Outpatient (CLI) | payer OTHER, SELFPAY ==
--- OUTSIDE RECORDS SUMMARY | 2021-03-06 11:20 | XMS_ITS | Continuity of Care Document ---
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 Role Phone Kiersten Pugh NP Unavailable Unavailable Allergies, Adverse Reactions, Alerts Substance Reaction Status Criticality polymyxin B Active No Information NEOMYCIN SULFATE Active No Informat ion BACITRACIN ZINC Active No Informati on bacitracin Active No Information Medications Medication Instructions Dosage Effective Dates (start - stop) Status Comments Furosemide 40 MG Oral Tablet Take 1 tablet by mouth once daily 40 MG - Active magnesium 250 mg tablet take 1 tablet by oral route every day 1 tablet - Active Calcium 600 + D(3) 600 mg (1,500 mg)-400 unit tablet take 1 tablet by oral route every day 1 tablet - Active atorvastatin 10 mg tablet TAKE ONE TABLET BY MOUTH ONCE DAILY - Active fluticasone propionate 50 mcg/actuation nasal spray,suspension inhale 2 spray by intranasal route every day in each nostril 100 MCG - Active lisinopril 2.5 mg tablet take 1 tablet by oral route every day 2.5 MG - Active venlafaxine ER 150 mg capsule,extended release 24 hr TAKE 1 CAPSULE BY MOUTH ONCE DAILY - Active hydrocodone 10 mg-acetaminophen 325 mg tablet take 1 tablet three times per day as needed for pain. - Active M15.0 gabapentin 300 mg capsule take 1 capsule by oral route 2 times every day 300 MG - Active ProAir HFA 90 mcg/actuation aerosol inhaler inhale 2 puff by inhalation route every 4 - 6 hours as needed - Active Colace 100 mg capsule take 1 capsule by oral route 2 times every day at bedtime as needed 100 MG - Active warfarin 6 mg tablet 6mg daily hold on Fridays - Active metoprolol tartrate 25 mg tablet take 0.5 tablet by oral route 2 times every day 12.5 MG - Active stop the 50mg. WARFARIN 1MG (ONE) TAB TAKE 1 TABLET BY MOUTH ON THURSDAY, THURSDAY AND Thursday - Active amiodarone 200 mg tablet take 1 tablet by oral route every day 200 MG - Active omeprazole 20 mg capsule,delayed release TAKE 1 CAPSULE BY MOUTH ONCE DAILY 30 MINUTES TO 1 HOUR BEFORE A MEAL - Active cyanocobalamin (vit B-12) 1,000 mcg tablet take 1 tablet by oral route every day 1 tablet - Active Procedures Procedure Date CBC, INC PLATELETS AND DIFFERENTIAL COMPREHEN METABOLIC PANEL [facility] 0 BRAIN NATRIURETIC PEPTIDE (BNP) 020 PROTHROMBIN TIME W/INR (PROTIME,PT) ROUTINE VENIPUNCTURE OFFICE [id number] BODY MASS INDEX DOCD SYST BP LT 130 MM HG DIAST BP < 80 MM HG CBC, INC PLATELETS AND DIFFERENTIAL COMPREHEN METABOLIC PANEL CMP 0 FERRITIN LEVEL IRON (FE), TOTAL TIBC, & % SATURATION PROTHROMBIN TIME W/INR (PROTIME,PT) ROUTINE VENIPUNCTURE OFFICE IKOAW-[id number] BODY MASS INDEX DOCD SYST BP LT 130 MM HG DIAST BP < 80 MM HG Pt inelig neg scrn depres CBC, INC PLATELETS AND DIFFERENTIAL COMPREHEN METABOLIC PANEL CMP 0 FERRITIN LEVEL PROTHROMBIN TIME W/INR (PROTIME,PT) ROUTINE VENIPUNCTURE MICROALBUMIN, QN (URINE) CREATININE, (U-R) OFFICE JVNUB-[id number]-[id number] BODY MASS INDEX DOCD SYST BP GE 130 - 139MM HG DIAST BP < 80 MM HG FALL RISK ASSESSMENT DOC'D PRES/ABSN URINE INCON ASSESS CBC, INC PLATELETS AND DIFFERENTIAL COMPREHEN METABOLIC PANEL CMP 0 CREATINE KINASE, TOTAL (CPK,CK) 020 FERRITIN LEVEL FOLIC ACID (S) (FOLATE) HEMOGLOBIN A1C HGA1C, GLYCO IRON (FE), TOTAL TIBC, & % SATURATION LIPID PANEL PARATHYROID HORMONE (PTH) THYROID STIMULATION HORMONE(TSH) 2019 VITAMIN B12 (SERUM) ROUTINE VENIPUNCTURE Pt inelig neg scrn depres PROTHROMBIN TIME W/INR (PROTIME,PT) Depression screen annual Clin depression screen doc OFFICE [id number] PROTIME (PT) - OFFICE LAB ONLY 20 FINGER OR HEEL STICK-COLLECTION OF CAPIL MIRIAM BLOOD SPECIMEN PROTIME (PT) - OFFICE LAB ONLY 20 FINGER OR HEEL STICK-COLLECTION OF CAPIL MIRIAM BLOOD SPECIMEN PROTIME (PT) - OFFICE LAB ONLY 20 FINGER OR HEEL STICK-COLLECTION OF CAPIL MIRIAM BLOOD SPECIMEN PROTIME (PT) - OFFICE LAB ONLY 20 FINGER OR HEEL STICK-COLLECTION OF CAPIL MIRIAM BLOOD SPECIMEN PROTIME (PT) - OFFICE LAB ONLY 20 FINGER OR HEEL STICK-COLLECTION OF CAPIL MIRIAM BLOOD SPECIMEN OFFICE EBZHB-[id number]-[id number] BODY MASS INDEX DOCD SYST BP >= 140 MM HG6 IT DIAST BP < 80 MM HG Pt inelig neg scrn depres CBC, INC PLATELETS AND DIFFERENTIAL COMPREHEN METABOLIC PANEL CMP 0 HEMOGLOBIN A1C HGA1C, GLYCO PROTHROMBIN TIME W/INR (PROTIME,PT) VITAMIN B12 (SERUM) ROUTINE VENIPUNCTURE OFFICE [id number]-[id number]-[id number] BODY MASS INDEX DOCD SYST BP LT 130 MM HG DIAST BP < 80 MM HG PROTIME (PT) - OFFICE LAB ONLY 20 FINGER OR HEEL STICK-COLLECTION OF CAPIL MIRIAM BLOOD SPECIMEN PROTIME (PT) - OFFICE LAB ONLY 19 FINGER OR HEEL STICK-COLLECTION OF CAPIL MIRIAM BLOOD SPECIMEN DSCHRG MED/CURRENT MED MERGE Transitional Care- First 7 Days Of Disch arge BODY MASS INDEX DOCD SYST BP >= 140 MM HG6 IT DIAST BP < 80 MM HG PROTIME (PT) - OFFICE LAB ONLY 19 FINGER OR HEEL STICK-COLLECTION OF CAPIL MIRIAM BLOOD SPECIMEN DSCHRG MED/CURRENT MED MERGE DSCHRG MED/CURRENT MED MERGE OFFICE [id number]-[id number] BODY MASS INDEX DOCD SYST BP LT 130 MM HG DIAST BP < 80 MM HG Admin influenza virus vac FLU VACC PRSV FREE INC ANTIG PROTIME (PT) - OFFICE LAB ONLY 19 FINGER OR HEEL STICK-COLLECTION OF CAPIL MIRIAM BLOOD SPECIMEN PROTIME (PT) - OFFICE LAB ONLY 19 FINGER OR HEEL STICK-COLLECTION OF CAPIL MIRIAM BLOOD SPECIMEN CBC, INC PLATELETS AND DIFFERENTIAL COMPREHEN METABOLIC PANEL CMP 9 FERRITIN LEVEL HEMOGLOBIN A1C HGA1C, GLYCO IRON (FE), TOTAL TIBC, & % SATURATION LIPID PANEL MAGNESIUM (MG), SERUM VITAMIN B12 (SERUM) VITAMIN D, 25-HYDROXY ROUTINE VENIPUNCTURE OFFICE [id number]-VGO-[id number] BODY MASS INDEX DOCD SYST BP LT 130 MM HG DIAST BP < 80 MM HG PROTIME (PT) - OFFICE LAB ONLY 19 FINGER OR HEEL STICK-COLLECTION OF CAPIL MIRIAM BLOOD SPECIMEN OFFICE EMAXT-WGC-HUOLVHBI BODY MASS INDEX DOCD SYST BP LT 130 MM HG DIAST BP < 80 MM HG PROTIME (PT) - OFFICE LAB ONLY 19 FINGER OR HEEL STICK-COLLECTION OF CAPIL MIRIAM BLOOD SPECIMEN OFFICE MNSOU-SMD-WUIGQHTA BODY MASS INDEX DOCD SYST BP LT 130 MM HG DIAST BP < 80 MM HG PROTIME (PT) - OFFICE LAB ONLY 19 FINGER OR HEEL STICK-COLLECTION OF CAPIL MIRIAM BLOOD SPECIMEN Advance Directives Directive Yes / No Effective Date File Name No Information Encounters Encounter Description Practice Location Reason(s) For Visit Diagnoses Date Provider Providers Copied on Encounter [facility], [address], [place], [place], [address] , tel: [phone] [facility] No Information 1 Keaton Burch. [facility] [place], [address], [place]. [phone] [employer], [address], [place], [place], [address] , tel: [phone] [facility] No Information 0 1 Christi Hayes. [address] [place], [place], [address], [place]. [phone] OFFICE GQEQV-RNA-BKH LUIS [facility], [address], [place], [place], [address] , tel:[phone] [facility] Chronic Conditions (chief complaint) Hypertensive heart and chronic kidney disease with heart failure and stage 1 through stage 4 chronic kidney disease, or unspecified chronic kidney diseaseChronic kidney disease, stage 4 (severe)Chroni c diastolic (congestive) heart failurePresenc e of prosthetic heart valveType 2 diabetes mellitus with diabetic peripheral angiopathy without gangreneBody mass index (BMI) 32.0-32.9, adultVascular dementia without behavioral disturbancePol yosteoarthriti s, unspecifiedChr onic obstructive airway disease 0 Keaton Burch. [address] [place] [address], [address], . tel:[phone] Referring Provider: Natalee Mcghee, [address] [place] [address], [address] . tel:[phone] [facility], [address], [place], [place], [address] , tel:[phone] [facility] No Information 0 Yara Albright. [address] [place] [address], [id number], . tel:[phone] OFFICE RLVTY-PKD-OXW [facility], [address], [place], [place], [address] , tel:[phone] [facility] Chronic Conditions (chief complaint) Body mass index (BMI) 32.0-32.9, adultHypertens julien heart and chronic kidney disease with heart failure and stage 1 through stage 4 chronic kidney disease, or unspecified chronic kidney diseaseChronic diastolic (congestive) heart failureVascula r dementia without behavioral disturbanceIro n deficiency anemia, unspecifiedSec ondary hyperparathyro idismLong term (current) use of anticoagulants Leg crampsDrug-ind uced constipationTy pe 2 diabetes mellitus with diabetic peripheral angiopathy without gangrene 0 Kena Dawson. [address] [place] [address], [id number], . tel:[phone] Referring Provider: Natalee Mcghee, [address] [place] [address], [address] . tel:[phone] [facility], [address], [place], [place], [address] , tel: [phone] [facility] Unspecified atrial flutterEssenti al (primary) hypertension Payam-2 0 Yara Albright. [address] [place] [address], [id number], [place]. tel:[phone] [facility], [address], [place], [place], [address] , tel: [phone] Care Management No Information Payam-0 0 Yara Albright. [address] [place] [address], [id number], . tel:[phone] OFFICE DYMDT-JKC-JEP [facility], [address], [place], [place], [address] , [place] tel: [phone] [facility] Chronic Conditions (chief complaint) Iron deficiency anemia, unspecifiedVas cular dementia without behavioral disturbanceHyp ertensive heart and chronic kidney disease with heart failure and stage 1 through stage 4 chronic kidney disease, or unspecified chronic kidney diseaseChronic diastolic (congestive) heart failureChronic kidney disease, stage 3 (moderate)Pres ence of prosthetic heart valveLong term (current) use of anticoagulants Type 2 diabetes mellitus with diabetic peripheral angiopathy without gangrene Payam-0 0 Yara Albright. [address] [place] [address], [id number], [place]. tel:[phone] Referring Provider: Natalee Mcghee, [address] [place] [address], [address] . tel:[phone] OFFICE NPEXU-FLJ-WFN [facility], [address], [place], [place], [address] , [place] tel: [phone] [facility] Chronic Conditions (chief complaint) Presence of prosthetic heart valveLong term (current) use of anticoagulants Chronic diastolic (congestive) heart failureHyperte nsive heart and chronic kidney disease with heart failure and stage 1 through stage 4 chronic kidney disease, or unspecified chronic kidney diseaseType 2 diabetes mellitus with diabetic peripheral angiopathy without gangreneChroni c kidney disease, stage 3 (moderate)Othe r nonthrombocyto penic purpuraIron deficiency anemia, unspecifiedObs tructive sleep apnea (adult) (pediatric)Vas cular dementia without behavioral disturbanceDia rrhea, unspecifiedPol yosteoarthriti s, unspecified July-0 0 Yara Albright. [address] [place] [address], [id number], . tel:[phone] Referring Provider: Natalee Mcghee, [address] [place] [address], [address] . tel:[phone] [facility], [address], [place], [place], [address] , tel: [phone] [facility] Presence of prosthetic heart valveMild cognitive impairmentLong term (current) use of anticoagulants Jun- 0 Gallo Pitts. [address] [facility], [address], [place], [address], [place]. tel:[phone] Referring Provider: Hong Holder, [address] [facility] [address], [place], [address] . tel:[phone] [facility], [address], [place], [place], [address] , tel: [phone] [facility] Hypertensive heart disease with heart failure Jun-2 0 Gallo Pitts. [address] [facility], [address], [place], [address], [place]. [phone] [facility], [address], [place], [place], [address] , tel: [phone] [facility] Presence of prosthetic heart valveLong term (current) use of anticoagulants Apr-2 2-202 0 Gallo Pitts. [address], [place], [address], . tel:[phone] Referring Provider: Hong Holder, [address], [address] . tel:[phone] [facility], [address], [place], [place], [address] , tel: [phone] [facility] No Information 0 Gallo Pitts. [address], [place], [address], . tel:[phone] [facility], [address], [place], [place], [address] , tel: [phone] [facility] Presence of prosthetic heart valveLong term (current) use of anticoagulants 0 Gallo Pitts. [address], [place], [address], [place]. [phone] Referring Provider: Hong Holder, [address], [address] . tel:[phone] [facility] [address], [place], [place], [address] , tel: [phone] [facility] Presence of prosthetic heart valveLong term (current) use of anticoagulants 0 Gallo Pitts. [address], [place], [address], [place]. tel:[phone] Referring Provider: Hong Holder, [address], [address] . tel:[phone] [facility], [address], [place], [place], [address] , tel: [phone] [facility] Nurse Visit (chief complaint) Presence of prosthetic heart valveLong term (current) use of anticoagulants 0 Gallo Pitts. [address], [place], [place], [address], [place]. tel:[phone] Referring Provider: Hong Holder, [address], [place], [address] . tel:[phone] OFFICE HNTRH-POS-SGQ ANDED [facility], [address], [place], [place], [address] , tel: [phone] [facility] Sick (chief complaint)C hronic Conditions (chief complaint) Respiratory illnessEssenti al (primary) hypertension 0 0 Gallo Pitts. [address] [employer] , [address], [place], [place], [address], [place]. tel:[phone] Referring Provider: Hong Holder, [address], [place], [address] . tel:[phone] [facility], [address], [place], [place], [address] , tel: [phone] [facility] DizzinessNumbn essSyncope, unspecified syncope type 0 Gallo Pitts. [address] [facility] , [address], [place], [place], [address], [place]. tel:[phone] OFFICE HJGMJ-LZE-PHQ LUIS [facility], [address], [place], [place], [address] , tel: [phone] [facility] 3 month (chief complaint)C hronic Conditions (chief complaint) Body mass index (BMI) 31.0-31.9, adultPre-synco peChronic obstructive airway diseasePrimary hyperparathyro idismHypertens julien heart disease with heart failureArterio sclerosis of chickaloon arteries of extremityType 2 diabetes mellitus with diabetic polyneuropathy Vitamin B12 deficiencyChro kaushik diastolic (congestive) heart failureAtheros clerosis of aortaMajor depressive disorder, single episode, in partial remissionParox ysmal atrial fibrillation 0 Gallo Pitts. [address] [employer] , [address], [place], [place], [address], [place]. tel:[phone] Referring Provider: Hong Holder, [address], [address] . tel:[phone] [facility] [address], [place], [place], [address] , tel: [phone] [facility] Presence of prosthetic heart valveLong term (current) use of anticoagulants 0 Gallo Pitts. [address] , [address], [place], [address], . tel:[phone] Referring Provider: Hong Holder, [address], [address] . tel:[phone] [facility] [address], [place], [place], [address] , tel: [phone] [facility] Presence of prosthetic heart valveLong term (current) use of anticoagulants Gallo Pitts. [address] , [address], [place], [address], [place]. tel:[phone] Referring Provider: Hong Holder, [address], [address] . tel:[phone] [facility] [address], [address] , tel: [phone] Care Management Atrial fibrillation, unspecified type Gallo Pitts. [address] , [address], [place], [address], [place]. tel:[phone] Transitional Care- First 7 Days Of Discharge [facility] [address], [place], [place], [address] , tel: [phone] [facility] Hospital F/U (chief complaint) Body mass index (BMI) 32.0-32.9, adultAcute frontal sinusitis, recurrence not specifiedAtria l fibrillation, unspecified typeH/O prosthetic heart valve Gallo Pitts. [address] , [address], [place], [address], [place]. tel:[phone] Referring Provider: Hong Holder, [address], [address] . tel:[phone] [facility], [address], [place], [place], [address] , tel: [phone] Care Management No Information Gallo Pitts. [address], [place], [address], [place]. [phone] Referring Provider: Hong Holder, [address], [address] . tel:[phone] [facility], [address], [place], [place], [address] , tel: [phone] Care Management Chronic obstructive airway disease Dec- Gallo Pitts. [address], [address], [place], [address], [place]. [phone] Referring Provider: Hong Holder, [address], [address] . tel:[phone] OFFICE OXVBJ-QZZ-NAN LUIS [facility], [address], [place], [place], [address] , tel: [phone] [facility] Hospital Follow Up (chief complaint) Obstructive sleep apnea (adult) (pediatric)Mem ory lossAdcamp pointce care planningCerebr al atherosclerosi sMild cognitive impairment Dec- 9 Gallo Pitts. [address], [address], [place]. [phone] Referring Provider: Hong Holder, [address], [address] . tel:[phone] [employer] [facility], [address], [place], [place], [address] , tel: [phone] [facility] Presence of prosthetic heart valveLong term (current) use of anticoagulants Gallo Pitts. [address] , [address], [place], [place], [address], [place]. tel:[phone] Referring Provider: Hong Holder, [address], [place], [address] . tel:[phone] [facility], [address], [place], [place], [address] , tel: [phone] Care Management Presence of prosthetic heart valveLong term (current) use of anticoagulants Gallo Pitts. [address] , [address], [place], [address], [place]. tel:[phone] Referring Provider: Hong Holder, [address], [address] . tel:[phone] OFFICE UIULH-YJA-SJM LUIS [facility], [address], [place], [place], [address] , tel: [phone] [facility] 3 month follow up (chief complaint)C hronic Conditions (chief complaint) Benign neoplasm of parathyroid glandVitamin B12 deficiencyIron deficiency anemia, unspecifiedAcu te pain of left shoulder Gallo Pitts. [address], [address], [place], [place], [address], [place]. tel:[phone] Referring Provider: Hong Holder, [address], [address] . tel:[phone] [facility], [address], [place], [place], [address] , [place] tel: [phone] [facility] Presence of prosthetic heart valveLong term (current) use of anticoagulants Gallo Pitts. [address] , [address], [place], [place], [address], [place]. tel:[phone] Referring Provider: Hong Holder, [address], [address] . tel:[phone] [facility], [address], [place], [place], [address] , [place] tel: [phone] [facility] Chest pain, unspecified Gallo Pitts. [address] , [address], [place], [place], [address], [place]. tel:[phone] OFFICE JALDL-BDA-CRV [facility], [address], [place], [place], [address] , [place] tel: [phone] Care Management SOB , DSOUZA and Weight Gain (chief complaint)C hronic Conditions (chief complaint) Body mass index (BMI) 31.0-31.9, adultNonintrac table headache, unspecified chronicity pattern, unspecified headache typeFinger swellingChroni c obstructive airway disease Gallo Pitts. [address] , [address], [place], [place], [address], [place]. tel:[phone] Referring Provider: Hong Holder, [address], [place], [address] . tel:[phone] OFFICE FPEZU-VZG-TWS [facility], [address], [place], [place], [address] , [place] tel: [phone] [facility] pain (chief complaint) Primary hyperparathyro idismBody mass index (BMI) 32.0-32.9, adultTrochante tessa bursitis of right hipRotator cuff arthropathy of left shoulder Gallo Pitts. [address] , [address], [place], [place], [address], [place]. tel:[phone] Referring Provider: Hong Holder, [address], [place], [address] . tel:[phone] [facility], [address], [place], [place], [address] , tel: [phone] [facility] Presence of prosthetic heart valveLong term (current) use of anticoagulants Gallo Pitts. [address] , [address], [place], [place], [address], . tel:[phone] Referring Provider: Hong Holder, [address] [facility] [address], [place], [address] . tel:[phone] [facility], [address], [place], [place], [address] , tel: [phone] [facility] Chronic Conditions (chief complaint)h eadache (chief complaint)r t thumb frx (chief complaint) Paroxysmal atrial fibrillationCh ronic diastolic (congestive) heart failureHyperte nsive heart disease with heart failureHyperli pidemia, unspecifiedArt eriosclerosis of chickaloon arteries of extremityMajor depressive disorder, single episode, in partial remissionGastr o-esophageal reflux disease without esophagitisTyp e 2 diabetes mellitus with diabetic polyneuropathy Atherosclerosi s of aortaBody mass index (BMI) 32.0-32.9, adultDysphagia , unspecifiedTen niko headacheOther nonthrombocyto penic purpuraClosed nondisplaced fracture of distal phalanx of right thumb with routine healing, subsequent encounter Gallo Pitts. [address] [facility], [address], [place], [place], [address], . tel:[phone] Referring Provider: Hong Holder, [address] [facility] [address], [place], [address] . tel:[phone] [facility], [address], [place], [place], [address] , tel: [phone] [facility] Presence of prosthetic heart valveLong term (current) use of anticoagulants Gallo Pitts. [address] [facility], [address], [place], [address], [place]. tel:[phone] Referring Provider: Hong Holder, [address] [facility] [address], [place], [address] . tel:[phone] [facility], [address], [place], [place], [address] , tel: [phone] [facility] Sprain of right thumb, unspecified site of finger, initial encounterPrese nce of prosthetic heart valveLong term (current) use of anticoagulants Gallo Pitts. [address] , [address], [place], [place], [address], . tel:[phone] Referring Provider: Hong Holder, [address], [place], [address] . tel:[phone] [employer], [address], [place], [place], [address] , [place] tel: [phone] [facility] Encounter for exam of blood pressure w/o abnormal findingsPresen ce of prosthetic heart valveLong term (current) use of anticoagulants Gallo Pitts. [address] , [address], [place], [place], [address], [place]. tel:[phone] Referring Provider: Hong Holder, [address], [place], [address] . tel:[phone] [employer] [facility], [address], [place], [place], [address] , [place] tel: [phone] [facility] Chronic obstructive airway disease Gallo Pitts. [address] , [address], [place], [address], [place]. tel:[phone] Referring Provider: Hong Holder, [address], [place], [address] . tel:[phone] [facility], [address], [place], [place], [address] , [place] tel: [phone] [facility] Lung diseaseHyperte nsive heart disease with heart failureDysphag ia, unspecifiedRig ht foot pain 9 Gallo Pitts. [address], [address], [place], [address], [place]. tel:[phone] Referring Provider: Hong Holder, [address], [place], [address] . tel:[phone] [facility], [address], [place], [place], [address] , tel: [phone] [facility] Abnormal PFT 9 Gallo Pitts. [address] [facility], [address], [place], [place], [address], [place]. tel:[phone] [facility], [address], [place], [place], [address] , tel: [phone] [facility] Presence of prosthetic heart valveLong term (current) use of anticoagulants Gallo Pitts. [address] [facility], [address], [place], [place], [address], [place]. tel:[phone] Referring Provider: Hong Holder, [address] [facility] [address], [place], [address] . tel:[phone] [facility], [address], [place], [place], [address] , tel: [phone] [facility] Paroxysmal atrial fibrillationAg e-related osteoporosis without current pathological fractureMorbid (severe) obesity due to excess caloriesChroni c diastolic (congestive) heart failureHyperte nsive heart disease with heart failureHyperli pidemia, unspecifiedTyp e 2 diabetes mellitus with diabetic peripheral angiopathy without gangreneMajor depressive disorder, single episode, in partial remissionArter iosclerosis of chickaloon arteries of extremityGastr o-esophageal reflux disease without esophagitisTyp e 2 diabetes mellitus with diabetic polyneuropathy Atherosclerosi s of aortaPresence of prosthetic heart valve Gallo Pitts. [address] [facility], [address], [place], [place], [address], . tel:[phone] [facility], [address], [place], [place], [address] , tel: [phone] [facility] SOB (shortness of breath) on exertion Gallo Pitts. [address] , [address], [place], [place], [address], [place]. tel:[phone] [facility], [address], [place], [place], [address] , tel: [phone] [facility] Presence of prosthetic heart valveLong term (current) use of anticoagulants 9 Gallo Pitts. [address] , [address], [place], [place], [address], [place]. tel:[phone] Referring Provider: Hong Holder, [address] [facility] [address], [place], [address] . tel:[phone] [facility], [address], [place], [place], [address] , tel: [phone] [facility] Acute pain of left shoulder 9 Gallo Pitts. [address] , [address], [address], [place]. tel:[phone] [employer], [address], [place], [place], [address] , [place] tel: [phone] [facility] Acute pain of left shoulderFall, subsequent encounterCoccy dynia 9 Gallo Pitts. [address] , [address], [place], [place], [address], [place]. tel:[phone] Referring Provider: Hong Holder, [address] [facility] [address], [address] . tel:[phone] [facility], [address], [place], [place], [address] , [place] tel: [phone] [facility] Obstructive sleep apneaShortness of breath 8 Gallo Pitts. [address] , [address], [place], [address], [place]. tel:[phone] Referring Provider: Hong Holder, [address] [facility] [address], [address] . tel:[phone] [facility], [address], [place], [place], [address] , tel: [phone] [facility] Presence of prosthetic heart valveLong term (current) use of anticoagulants 8 Gallo Pitts. [address] [facility], [address], [place], [address], [place]. tel:[phone] Referring Provider: Hong Holder, [address] [facility] [address], [address] . tel:[phone] [facility], [address], [place], [place], [address] , tel: [phone] [facility] Paroxysmal atrial fibrillationAg e-related osteoporosis without current pathological fractureBenign neoplasm of parathyroid gland Gallo Pitts. [address] [employer] , [address], [place], [address], . tel:[phone] Referring Provider: Hong Holder, [address] [facility] [address], [place], [address] . tel:[phone] [facility], [address], [place], [place], [address] , tel: [phone] [facility] Presence of prosthetic heart valveLong term (current) use of anticoagulants Glalo Pitts. [address] [facility], [address], [place], [address], [place]. tel:[phone] Referring Provider: Hong Holder, [address] [facility] [address], [address] . tel:[phone] [facility], [address], [place], [place], [address] , tel: [phone] [facility] Anemia, unspecifiedPre sence of prosthetic heart valveLong term (current) use of anticoagulants Diverticulitis 8 Gallo Pitts. [address] [facility], [address], [address], [place]. tel:[phone] Referring Provider: Hong Holder, [address], [place], [address] . tel:[phone] [facility], [address], [place], [place], [address] , [place] tel: [phone] [facility] Lower abdominal painDiarrhea, unspecified type 8 Gallo Pitts. [address], [address], [place], [place], [address], [place]. tel:[phone] [facility], [address], [place], [place], [address] , [place] tel: [phone] [facility] Anemia, unspecifiedDiv erticulitis 8 Gallo Pitts. [address], [address], [place], [place], [address], [place]. tel:[phone] [facility], [address], [place], [place], [address] , [place] tel: [phone] [facility] Diverticulitis 8 Gallo Pitts. [address] [facility] [address], [address], [place], [place], [address], [place]. tel:[phone] Referring Provider: Hong Holder, [address] [facility] [address], [place], [address] . tel:[phone] [facility], [address], [place], [place], [address] , [place] tel: [phone] [facility] Wedge compression fracture of unsp thor vertebra, sequelaDiverti culitis 8 Gallo Pitts. [address] [facility] [address], [address], [place], [place], [address], [place]. tel:[phone] Referring Provider: Hong Holder, [address] [facility] [address], [place], [address] . tel:[phone] [facility], [address], [place], [place], [address] , [place] tel: [phone] [facility] Chronic diastolic (congestive) heart failureUnspeci fied atrial flutterMorbid (severe) obesity due to excess caloriesWedge compression fracture of unsp thor vertebra, sequela Gallo Pitts. [address] , [address], [address], [place]. tel:[phone] Referring Provider: Hong Holder, [address] [facility] [address], [place], [address] . tel:[phone] [facility], [address], [place], [place], [address] , [place] tel: [phone] [facility] Presence of prosthetic heart valveLong term (current) use of anticoagulants Gallo Pitts. [address] , [address], [address], [place]. tel:[phone] Referring Provider: Hong Holder, [address] [facility] [address], [address] . tel:[phone] [facility], [address], [place], [place], [address] , [place] tel: [phone] [facility] Vitamin B12 deficiencyPres ence of prosthetic heart valveLong term (current) use of anticoagulants Gallo Pitts. [address] , [address], [address], [place]. tel:[phone] Referring Provider: Hong Holder, [address] [facility] [address], [address] . tel:[phone] [facility], [address], [place], [place], [address] , [place] tel: [phone] [facility] No Information Gallo Pitts. [address] , [address], [place], [address], [place]. tel:[phone] [facility], [address], [place], [place], [address] , [place] tel: [phone] [facility] Vitamin B12 deficiency Aug-0 Gallo Pitts. [address], [address], [place], [address], . tel:[phone] Referring Provider: Hong Holder, [address], [place], [address] . tel:[phone] [facility], [address], [place], [place], [address] , tel: [phone] [facility] Presence of prosthetic heart valveLong term (current) use of anticoagulants Anemia, unspecified July- Gallo Pitts. [address], [address], [place], [address], . tel:[phone] Referring Provider: Hong Holder, [address], [address] . tel:[phone] [facility], [address], [place], [place], [address] , tel: [phone] [facility] Hypertensive heart disease with heart failureAnemia, unspecified Gallo Pitts. [address], [address], [place], [address], [place]. tel:[phone] Referring Provider: Hong Holder, [address], [address] . tel:[phone] [facility], [address], [place], [place], [address] , tel: [phone] [facility] Presence of prosthetic heart valveLong term (current) use of anticoagulants Gallo Pitts. [address], [address], [place], [address], [place]. tel:[phone] Referring Provider: Hong Holder, [address], [place], [address] . tel:[phone] [facility], [address], [place], [place], [address] , tel: [phone] [facility] Presence of prosthetic heart valveLong term (current) use of anticoagulants 8 Gallo Pitts. [address] [facility], [address], [place], [place], [address], [place]. tel:[phone] Referring Provider: Hong Holder, [address] [facility] [address], [place], [address] . tel:[phone] [facility], [address], [place], [place], [address] , tel: [phone] [facility] Lumbar spondylosisSho rtness of breath 8 Gallo Pitts. [address] [facility] , [address], [place], [place], [address], [place]. [phone] Referring Provider: Hong Holder, [address] [facility] [address], [place], [address] . tel:[phone] [facility], [address], [place], [place], [address] , [place] tel: [phone] [facility] Major depressive disorder, single episode, in partial remissionPrima ry hyperparathyro idismGastro-es ophageal reflux disease without esophagitisCer ebral atherosclerosi sHyperlipidemi a, unspecifiedArt eriosclerosis of chickaloon arteries of extremityType 2 diabetes mellitus with diabetic peripheral angiopathy without gangreneScreen ing for osteoporosisPa roxysmal atrial fibrillationLo ng term (current) use of anticoagulants Presence of prosthetic heart valvePost-halima pausal 0 8 Gallo Pitts. [address] [facility] [address], [address], [place], [place], [address], [place]. [phone] Referring Provider: Hong Holder, [address] [facility] [address], [place], [address] . tel:[phone] [facility], [address], [place], [place], [address] , tel: [phone] [facility] Presence of prosthetic heart valveLong term (current) use of anticoagulants Jun-2 8 Gallo Pitts. [address] [facility] [address], [address], [place], [address], . tel:[phone] Referring Provider: Hong Holder, [address] [facility] [address], [place], [address] . tel:[phone] [facility], [address], [place], [place], [address] , tel: [phone] [facility] Hypertensive heart disease with heart failure Jun-2 8 Gallo Pitts. [address] [facility] [address], [address], [place], [address], [place]. tel:[phone] Referring Provider: Hong Holder, [address] [facility] [address], [address] . 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 [address] [facility], [address], [address], [place]. tel:[phone] Referring Provider: Hong Holder, [address] [facility] [address], [address] . tel:[phone] [facility], [address], [place], [place], [address] , tel: [phone] [facility] Type 2 diabetes mellitus with diabetic polyneuropathy Body mass index (BMI) 40.0-44.9, adult Mar-0 2- 8 Micha Jaylyn. [address], [address]. tel:[phone] Referring Provider: Hong Holder, [address] [facility] [address], [address] . tel:[phone] [facility], [address], [place], [place], [address] , [place] tel: [phone] [facility] Encntr screen mammogram for malignant neoplasm of breast 8 Gallo Pitts. [address], [address], [place], [place], [address], [place]. tel:[phone] [facility], [address], [place], [place], [address] , tel: [phone] [facility] Low back pain 8 Gallo Pitts. [address], [address], [place], [place], [address], [place]. tel:[phone] [facility], [address], [place], [place], [address] , tel: [phone] [facility] Presence of prosthetic heart valveLong term (current) use of anticoagulants Gallo Pitts. [address] , [address], [place], [place], [address], [place]. tel:[phone] Referring Provider: Hong Holder, [address], [place], [address] . 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 [address] , [address], [place], [place], [address], [place]. tel:[phone] Referring Provider: Hong Holder, [address] [facility] [address], [place], [address] . tel:[phone] [facility], [address], [place], [place], [address] , [place] tel: [phone] [facility] Osteoporosis, unspecified osteoporosis type, unspecified pathological fracture presence 8 Demetrius Schilling. [address], [address], [place], [place], [address]. tel:[phone] [facility], [address], [place], [place], [address] , tel: [phone] [facility] Low back painAtheroscle rosis of aortaPolymyalg ia rheumaticaHear t failure, unspecifiedTyp e 2 diabetes mellitus with diabetic polyneuropathy Morbid (severe) obesity due to excess calories Gallo Pitts. [address] [employer] [employer] , [address], [place], [place], [address], [place]. tel:[phone] Referring Provider: Hong Holder, [address] [facility] [address], [place], [address] . 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 [address], [address], [place], [place], [address], [place]. tel:[phone] Referring Provider: Hong Holder, [address] [facility] [address], [place], [address] . tel:[phone] [facility] [address], [place], [place], [address] , tel: [phone] [facility] Presence of prosthetic heart valveLong term (current) use of anticoagulants Gallo Pitts. [address] [address], [address], [place], [place], [address], [place]. tel:[phone] Referring Provider: Hong Holder, [address] [facility] [address], [address] . tel:[phone] [facility] [address], [place], [place], [address] , tel: [phone] [facility] Strain of lumbar region, subsequent encounter Gallo Pitts. [address], [address], [place], [address], . tel:[phone] Referring Provider: Hong Holder, [address], [place], [address] . 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 [address], [address], [place], [address], [place]. tel:[phone] Referring Provider: Hong Holder, [address], [address] . 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 [address], [address], [place], [address], [place]. tel:[phone] Referring Provider: Hong Holder, [address], [address] . tel:[phone] [facility] [address], [place], [place], [address] , tel: [phone] [facility] Polymyalgia rheumaticaHear t failure, unspecifiedArt eriosclerosis of chickal[place] arteries of extremityType 2 diabetes mellitus with diabetic peripheral angiopathy without gangreneAthero sclerosis of aortaMorbid (severe) obesity due to excess caloriesEncntr screen mammogram for malignant neoplasm of breastLong term (current) use of anticoagulants Presence of prosthetic heart valveHyperlipi demia, unspecifiedCer ebral atherosclerosi sGastro-esopha geal reflux disease without esophagitis Gallo Pitts. [address], [address], [place], [address], [place]. tel:[phone] Referring Provider: Hong Holder [address], [address] . tel:[phone] [facility], [address], [place], [place], [address] , tel: [phone] [facility] Knee pain, unspecified chronicity, unspecified laterality 7 Gallo Pitts. [address], [address], [place], [address], [place]. 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 [address], [address], [address], [place]. tel:[phone] Referring Provider: Hong Holder, [address], [address] . tel:[phone] [facility], [address], [place], [place], [address] , [place] tel: [phone] [facility] Iron deficiency anemia, unspecified iron deficiency anemia type Gallo Pitts. [address], [address], [place], [address], [place]. 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 [address], [address], [address], [place]. tel:[phone] Referring Provider: Hong Holder, [address], [address] . tel:[phone] [facility], [address], [place], [place], [address] , [place] tel: [phone] [facility] Iron deficiency anemia, unspecified iron deficiency anemia type Aug- Gallo Pitts. [address], [address], [place], [place], [address], [place]. tel:[phone] [facility], [address], [place], [place], [address] , tel: [phone] [facility] Anemia, unspecified Gallo Pitts. [address], [address], [place], [place], [address], [place]. tel:[phone] Referring Provider: Hong Holder, [address], [place], [address] . tel:[phone] [facility], [address], [place], [place], [address] , [place] tel: [phone] [facility] Presence of prosthetic heart valveLong term current use of anticoagulant therapyAnemia, unspecified Gallo Pitts. [address], [address], [place], [place], [address], [place]. tel:[phone] [facility], [address], [place], [place], [address] , tel: [phone] [facility] Type 2 diabetes mellitus with polyneuropathy Demetrius Schilling. [address], [address], [place], [place], [address]. tel:[phone] [facility], [address], [place], [place], [address] , [place] tel: [phone] [facility] Shortness of breathPolymyal carmen rheumaticaPres ence of prosthetic heart valvePrimary hyperparathyro idismMajor depressive disorder, single episode, in partial remission Gallo Pitts. [address], [address], [place], [place], [address], [place]. tel:[phone] Referring Provider: Hong Holder, [address], [address] . tel:[phone] [facility], [address], [place], [place], [address] , tel: [phone] [facility] Dizziness and giddinessPolym yalgia rheumatica Gallo Pitts. [address], [address], [place], [address], . tel:[phone] Referring Provider: Hong Holder, [address], [place], [address] . tel:[phone] [facility], [address], [place], [place], [address] , tel: [phone] [facility] MyalgiaBilater al shoulder pain, unspecified chronicity Gallo Pitts. [address] , [address], [address], . tel:[phone] Referring Provider: Hong Holder, [address], [address] . tel:[phone] [facility], [address], [place], [place], [address] , tel: [phone] [facility] H/O mechanical aortic valve replacementLon g term current use of anticoagulant therapy Gallo Pitts. [address] , [address], [place], [address], [place]. tel:[phone] Referring Provider: Hong Holder, [address], [address] . tel:[phone] [facility], [address], [place], [place], [address] , tel: [phone] [facility] H/O mechanical aortic valve replacementLon g term current use of anticoagulant therapy Gallo Pitts. [address], [address], [address], [place]. tel:[phone] Referring Provider: Hong Holder, [address], [place], [address] . tel:[phone] [facility] [address], [place], [place], [address] , tel: [phone] [facility] Bilateral arm painBilateral shoulder pain, unspecified chronicity Jun-2 4-201 7 Gallo Pitts. [address], [address], [place], [address], [place]. [phone] Referring Provider: Hong Holder, [address], [address] . tel:[phone] [facility] [address], [place], [place], [address] , tel: [phone] [facility] Bilateral leg cramps Jun-2 0- 7 Gallo Pitts. [address], [address], [address], [place]. tel:[phone] Referring Provider: Hong Holder, [address], [address] . tel:[phone] [facility] [address], [place], [place], [address] , tel: [phone] [facility] H/O mechanical aortic valve replacementLon g term current use of anticoagulant therapy May-3 0-201 7 Gallo Pitts. [address], [address], [address], [place]. [phone] Referring Provider: Hong Holder, [address], [address] . tel:[phone] [facility] [address], [place], [place], [address] , tel: [phone] [facility] H/O mechanical aortic valve replacementLon g term current use of anticoagulant therapy May-2 3-201 7 Gallo Pitts. [address], [address], [place], [place], [address], [place]. [phone] Referring Provider: Hong Holder, [address], [place], [address] . tel:[phone] [facility], [address], [place], [place], [address] , tel: [phone] [facility] H/O mechanical aortic valve replacementLon g term current use of anticoagulant therapy 7 Gallo Pitts. [address], [place], [place], [address], [place]. tel:[phone] Referring Provider: Hong Holder, [address], [place], [address] . tel:[phone] [facility], [address], [place], [place], [address] , [place] tel: [phone] [facility] Neck painH/O mechanical aortic valve replacement 7 Gallo Pitts. [address], [place], [place], [address], [place]. tel:[phone] [facility], [address], [place], [place], [address] , [place] tel: [phone] [facility] Acute non-recurrent sinusitis, unspecified location 7 Gallo Pitts. [address], [address], [place], [place], [address], [place]. tel:[phone] Referring Provider: Hong Holder, [address], [place], [address] . tel:[phone] [facility], [address], [place], [place], [address] , [place] tel: [phone] [facility] H/O mechanical aortic valve replacementLon g term current use of anticoagulant therapy 0 7 Gallo Pitts. [address], [address], [place]. [phone] Referring Provider: Hong Holder, [address], [place], [address] . tel:[phone] [facility], [address], [place], [place], [address] , tel: [phone] [facility] Type 2 diabetes mellitus with polyneuropathy Hammer toe of left footAcute bilateral low back pain without sciatica 7 Gallo Pitts. [address], [place], [place], [address], [place]. tel:[phone] Referring Provider: Hong Holder, [address], [place], [address] . tel:[phone] [facility], [address], [place], [place], [address] , tel: [phone] [facility] Obstructive sleep apnea 0 6 Gallo Pitts. [address], [place], [place], [address], [place]. tel:[phone] [facility], [address], [place], [address] , tel: [phone] [facility] Major depressive disorder, single episode, in partial remissionH/O mechanical aortic valve replacementTyp e 2 diabetes mellitus with polyneuropathy 6 Gallo Pitts. [address], [place], [place], [address], [place]. tel:[phone] Referring Provider: Hong Holder, [address], [place], [address] . tel:[phone] [facility], [address], [place], [place], [address] , tel: [phone] [facility] Complicated griefDisappear ance and of family memberMajor depressive disorder, single episode, in partial remission 2-201 6 Gallo Pitts. [address], [place], [place], [address], [place]. tel:[phone] [employer], [address], [place], [place], [address] , [place] tel: [phone] [facility] No Information 6 Gallo Pitts. [address] [facility] [address], [place], [place], [address], [place]. tel:[phone] Referring Provider: Maria T Ramon, [address], [place], [address] . tel:[phone] [employer], [address], [place], [place], [address] , [place] tel: [phone] [facility] Complicated griefDisappear ance and of family memberNeck pain 6 Gallo Pitts. [address], [place], [place], [address], [place]. tel:[phone] Referring Provider: Hong Holder, [address] [facility] [address], [place], [address] . tel:[phone] [facility], [address], [place], [place], [address] , [place] tel: [phone] [facility] Atherosclerosi s of aorta 6 Gallo Pitts. [address], [place], [place], [address], [place]. tel:[phone] Referring Provider: Hong Holder, [address], [place], [address] . tel:[phone] [facility], [address], [place], [place], [address] , [place] tel: [phone] [facility] Tear of right rotator cuff, unspecified tear extent 6 Gallo Pitts. [address], [place], [place], [address], [place]. tel:[phone] [facility], [address], [place], [place], [address] , tel: [phone] [facility] Type 2 diabetes mellitus with polyneuropathy Chronic right shoulder pain 3 6 Gallo Pitts. [address] , [address], [place], [place], [address], . tel:[phone] Referring Provider: Hong Holder, [address], [place], [address] . tel:[phone] [facility], [address], [place], [place], [address] , tel: [phone] [facility] H/O mechanical aortic valve replacementLon g term current use of anticoagulant therapy 0 6 Gallo Pitts. [address], [address], . tel:[phone] Referring Provider: Hong Holder, [address], [address] . tel:[phone] [facility], [address], [place], [place], [address] , tel: [phone] [facility] H/O mechanical aortic valve replacementLon g term current use of anticoagulant therapy 6 Gallo Pitts. [address] , [address], [place], [place], [address], . tel:[phone] Referring Provider: Hong Holder, [address], [place], [address] . tel:[phone] [facility], [address], [place], [place], [address] , tel: [phone] [facility] Dyspnea on effort 6 Gallo Pitts. [address], [address], . tel:[phone] [facility], [address], [place], [place], [address] , tel: [phone] [facility] H/O mechanical aortic valve replacementLon g term current use of anticoagulant therapy 3 6 Gallo iPtts. [address], [place], [place], [address], [place]. [phone] Referring Provider: Hong Holder, [address], [place], [address] . tel:[phone] [facility], [address], [place], [place], [address] , [place] tel: [phone] [facility] Neck painBilateral shoulder pain, unspecified chronicityPain in left shoulder 6 Gallo Pitts. [address], [place], [place], [address], [place]. tel:[phone] [facility], [address], [place], [place], [address] , [place] tel: [phone] [facility] H/O mechanical aortic valve replacementLon g term current use of anticoagulant therapy 6 Gallo Pitts. [address], [address], [place]. tel:[phone] Referring Provider: Hong Holder, [address], [place], [address] . tel:[phone] [facility], [address], [place], [place], [address] , [place] tel: [phone] [facility] H/O mechanical aortic valve replacementLon g term current use of anticoagulant therapy 6 Gallo Pitts. [address], [address], [place]. tel:[phone] Referring Provider: Hong Holder, [address], [address] . tel:[phone] [facility], [address], [place], [place], [address] , [place] tel: [phone] [facility] H/O mechanical aortic valve replacementLon g term current use of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 sinusitis. Related to Acute frontal sinusitis, recurrence not specified Disease process Dietary management e ducation, guidance, and counseling Related to Body mass index (BMI) 32.0-32.9, adult Pt will monitor & fo llow her COPD POA, report change in weights, edema or breathing. Has working scale, advised to weigh daily in am before food/drink to obtain dry weight, report wt gains 2-3#/day or 5#/week. Monitor salt intake, goal to keep salt intake 2 gms or less/day. Status: Able to self-manage condition. Goals: You goal is to review/learn your COPD Action Plan document. Barriers: Include(s) Related to Chronic obstructive airway disease We will monitor for the development of dementia. Related to Mild cognitive impairment Your head CT showed cerebral white matter disease. Your SLUMS result showed mild cognitive impairment. I suspect you have the beginnings of vascular dementia. We will focus on control of vascular risk factors for the time being. Related to Cerebral atherosclerosis You expressed a jaydon re that your sister would serve as your power of immigration attorney for nam care decisions. You NEED to document this. You can do so using the form that I provided today. Related to Advance care planning We had a lengthy dis cussion about memory. You will let me know if you begin to have trouble with memory. We will administer the SLUMS exam today. Related to Memory loss We will ask provider plus to service your cpap equipment. Related to Obstructive sleep apnea (adult) (pediatric) Disease process Disease process apply ice, rest, per form gentle range of motion exercises Related to Acute pain of left shoulder i will check b12 level. Related to Vitamin B12 deficiency will check vitamin D and calcium level. Related to Benign neoplasm of parathyroid gland i will check iron tests. Related to Iron deficiency anemia, unspecified Disease process Disease process use trelegy dailyuse pro-air as needed. Related to Chronic obstructive airway disease You can use warm com presses or warm soaks on your left index finger. Related to Finger swelling continue tylenolplea se fill your new eyeglass prescription and then let me know how it goes with your headache. Related to Nonintractable headache, unspecified chronicity pattern, unspecified headache type Dietary management e ducation, guidance, and counseling Related to Body mass index (BMI) 31.0-31.9, adult Disease process Disease process Disease process We will monitor blood calcium le jaqueline. Related to Primary hyperparathyroidism I will provide some information about exercises for this Related to Trochanteric bursitis of right hip referral to Dr. Macario shelton. We discussed PT and you decided against this. Related to Rotator cuff arthropathy of left shoulder Disease process Dietary management e ducation, guidance, and counseling Related to Body mass index (BMI) 32.0-32.9, adult Continue routine ski n care including moisturizer and protection from sun. Related to Other nonthrombocytopenic purpura we will continue to address modifiable risk factors Related to Atherosclerosis of aorta continue metformin at current do se. Related to Type 2 diabetes mellitus with diabetic polyneuropathy continue with venlafaxine. Relat ed to Major depressive disorder, single episode, in partial remission continue with omeprazole. Relate d to Gastro-esophageal reflux disease without esophagitis continue with atorvastatin. 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 Related t o Hyperlipidemia, unspecified Continue your current medication s. Related to Hypertensive heart disease with heart failure you are planning to have echocardiogram in october. Related to Chronic diastolic (congestive) heart failure we will monitor for signs of recurrent atrial fibrillation. Related to Paroxysmal atrial fibrillation i recommend using Ty lenol to treat your headache. Related to Tension headache I recommend a modifi ed barium swallow. Related to Dysphagia, unspecified Disease process Disease process Disease process Disease process Dietary management e ducation, guidance, and counseling Related to Body mass index (BMI) 32.0-32.9, adult Assessments Type Assessment Date No Information Patient Care Teams Name Effective Dates (start - stop) Status Members No Information
--- NOTE | 2024-12-13 12:25 | ECHO_ITS ---
Patient Info Name: Radha Huynh Age: 79 years : 1945 Gender: Female Ht: 62 in Wt: 160 lbs BSA: 1.81 m2 HR: 53 bpm BP: 156 / 75 mmHg Heart Rhythm: Sinus Rhythm Technical Quality: Fair Exam Date: 12/13/2024 12:37 PM Patient Status: O Admit Date: 12/13/2024 Exam Type: CA echo doppler color flow Complete two-dimensional, color flow and Doppler transthoracic echocardiogram is performed. Social Service Agency Director: Lupe Nolan Attending Provider: Emil Farrell DO Summary 1. Complete two-dimensional, color flow and Doppler transthoracic echocardiogram is performed. 2. Left ventricular chamber dimension is normal. 3. Left ventricular systolic function is normal, estimated at 55-60. 4. There is mild concentric increased left ventricular wall thickness. 5. The left ventricular diastolic function is abnormal. 6. E/e' 33 is significantly elevated. 7. Right ventricular systolic function is mildly reduced and with abnormal TAPSE 1.1 cm. 8. Left atrial chamber dimension is moderately enlarged. 9. Right atrial chamber dimension is moderately enlarged. 10. Mechanical aortic valve. 11. There is trace regurgitation of the mechanical aortic valve. 12. The mitral valve has mildly calcified leaflets and a moderately calcified annulus. 13. There is mild mitral valve stenosis with valve area at 1.6 cm2. 14. There is mild mitral valve regurgitation. 15. There is mild to moderate tricuspid valve regurgitation. 16. Mild pulmonary hypertension, estimated pulmonary arterial systolic pressure is 40 mmHg. Left Ventricle E/e' 33 is significantly elevated. Left ventricular chamber dimension is normal. Left ventricular systolic function is normal, estimated at 55-60. There is mild concentric increased left ventricular wall thickness. The left ventricular diastolic function is abnormal. Right Ventricle Right ventricular chamber dimension is normal. Right ventricular systolic function is mildly reduced and with abnormal TAPSE 1.1 cm. Left Atria Left atrial chamber dimension is moderately enlarged. Right Atria Right atrial chamber dimension is moderately enlarged. Aortic Valve The mechanical aortic valve is not well visualized. There is no mechanical aortic valve stenosis. There is trace regurgitation of the mechanical aortic valve. Mechanical aortic valve. Pulmonic Valve There is no pulmonic regurgitation. Mitral Valve The mitral valve has mildly calcified leaflets and a moderately calcified annulus. There is mild mitral valve stenosis with valve area at 1.6 cm2. There is mild mitral valve regurgitation. Tricuspid Valve There is mild to moderate tricuspid valve regurgitation. Mild pulmonary hypertension, estimated pulmonary arterial systolic pressure is 40 mmHg. Pericardium/Pleural There is no pericardial effusion. Inferior Vena Cava Normal inferior vena cava with >50% collapse upon inspiration consistent with normal right atrial pressure, 5 mmHg. Aorta The aortic root size at the sinus of Valsalva is normal. Left Ventricular Outflow Tract Name Value Normal LVOT 2D LVOT Diameter 2.3 cm LVOT Doppler LVOT Peak Velocity 78 cm/s LVOT Peak Gradient 2 mmHg LVOT Mean Gradient 1 mmHg LVOT VTI 19 cm LVOT VTI/AV VTI Ratio 0.3 LVOT Stroke Volume 80 ml LVOT CO 4.2 l/min LVOT CI 2.3 l/min/m2 Pulmonic Valve Name Value Normal RVOT Doppler RVOT Peak Velocity 70 cm/s RVOT Peak Gradient 2 mmHg PV Doppler PV Peak Velocity 80 cm/s PV Peak Gradient 3 mmHg Mitral Valve Name Value Normal MV Doppler MV Peak Gradient 11 mmHg MV Mean Gradient 3 mmHg MV Area (Cont Eq VTI) 1.6 cm2 MV Diastolic Function MV E Peak Velocity 151 cm/s MV A Peak Velocity 93 cm/s MV E/A 1.6 MV Decel Time (PW) 200 ms MV Annular TDI MV E/e' (Septal) 38.1 MV E/e' (Lateral) 30.3 MV E/e' (Average) 34.2 Tricuspid Valve Name Value Normal TV Regurgitation Doppler TR Peak Velocity 295 cm/s TR Peak Gradient 35 mmHg Estimated PAP/RSVP RA Pressure 5 mmHg <=5 PA Systolic Pressure 40 mmHg <36 RV Systolic Pressure 40 mmHg <36 TV Annular TDI TV Lateral Megan s' Velocity 3.0 cm/s >=9.5 Aorta Name Value Normal Ascending Aorta Ao Root Diameter (MM) 2.7 cm Ao Root Diam Index (MM) 1.5 cm/m2 Aortic Valve Name Value Normal AV Doppler AV Peak Velocity 257 cm/s AV Peak Gradient 26 mmHg AV Mean Gradient 15 mmHg AV VTI 61 cm AV Area (Cont Eq VTI) 1.3 cm2 >=3.0 AV Area (Cont Eq Randall) 1.3 cm2 AV DI (Randall) 0.30 AV Regurgitation 2D LVOT Area 4.1 cm2 Ventricles Name Value Normal LV Dimensions 2D/MM IVS Diastolic Thickness (2D) 1.0 cm 0.6-1.0 LVID Diastole (2D) 4.3 cm 3.8-5.2 LVIW Diastolic Thickness (2D) 1.0 cm 0.6-0.9 LVID Systole (2D) 3.3 cm 2.2-3.5 LVOT Diameter 2.3 cm LV Mass (2D Cubed) 145.21 g 67.00-162.00 LV Mass Index (2D Cubed) 80 g/m2 43-95 Relative Wall Thickness (2D) 0.48 <=0.42 LV Fractional Shortening/Ejection Fraction 2D/MM LV Fractional Shortening (2D) 22 % 27-45 LV EF (2D Teichholz) 45 % LV Diastolic Volume (4C MOD) 93 ml LV EF (4C MOD) 45 % LV Diastolic Volume (2C MOD) 95 ml LV EF (2C MOD) 55 % LV Diastolic Volume (BP MOD) 99 ml 46-106 LV Diastolic Volume Index (BP MOD) 55 ml/m2 29-61 LV Systolic Volume (BP MOD) 47 ml 14-42 LV Systolic Volume Index (BP MOD) 26 ml/m2 8-24 LV EF (BP MOD) 52 % 54-74 LV Diastolic Length (4C) 6.7 cm LV Systolic Length (4C) 6.4 cm LV Stroke Volume (4C MOD) 42 ml Atria Name Value Normal LA Dimensions LA Dimension (MM) 4.6 cm 2.7-3.8 LA Volume (4C A-L) 78 ml LA Volume (BP A-L) 89 ml RA Dimensions RA Area (4C) 20.9 cm2 <=18.0 Report Signatures
--- OUTSIDE RECORDS SUMMARY | 2024-12-13 13:15 | XMS_ITS | Clinical Summary ---
Author Organization [facility] Address [address] [place] [address] Care Team Providers Care Credit Risk Management Director Name Role Phone Juan Pablo Dominguez MD Primary Care Provider Unavailabl e Source Comments [facility],non-owned Affiliates and Associated Physician Practices is amultiple site organization consisting of ambulatory clinics and hospital sitesin [place], [place], [place] and [place]. This disclosure is being madepursuant to the Care Everywhere program and may not contain all information available regarding this patient. Last updated 17.OneFineMeal Allergies No known active allergies Medications * Be aware that medications may not be up to date on this document. Alwaysverify current medications with the patient. amiodarone (CORDARONE) 200 MG tablet Take 100 mg by mouth once daily Active warfarin (COUMADIN) 5 MG tablet Take 5 mg by mouth Active atorvastatin (LIPITOR) 10 MG tablet Take 10 mg by mouth at bedtime Active venlafaxine XR 24hr (EFFEXOR XR) 75 MG capsule Take 150 mg by mouth daily with breakfast Active HYDROcodone-francesca taminophen (NORCO) 10-325 MG tablet Take 2 tablets [...] (two) capsules by mouth 2 times daily 1 Active polyethylene glycol 3350 (MIRALAX) 17 g packet Take 17 (seventeen) g by mouth 2 times daily as needed for Constipation 1 Active senna (SENOKOT EXTRA STRENGTH) 17.2 MG Take 17.2 mg by mouth 2 times daily 1 Active Active Problems Problem Noted Date Diagnosed Date S/P AVR (aortic valve replacement) 08/09/2020 Elevated troponin 08/09/2020 Dizziness 08/08/2020 Memory impairment 08/08/2020 Social History Tobacco Use Types Packs/Day Years Used Date Smoking Tobacco: Never Smokeless Tobacco: Never Comments Unknown Sex and Gender Information Value Date Recorded Sex Assigned at Not on file Legal Sex 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 Gender Identity Not on file Sexual [...] A M CDT Height 165.1 cm (5' 5) 08/09/2020 3:48 AM CDT Body Mass Index 34.83 08/09/2020 3:48 AM CDT Plan of Treatment Health Maintenance Due Date Last Done Comments BONE DENSITY TESTING 1945 MEDICARE AWV 12 MONTHS 1945 DTAP/TDAP/TD VACCINES (1 - Tdap) 05/23/1963 PNEUMOCOCCAL VACCINE 50+ (1 of 2 - PCV) 05/23/1963 ZOSTER VACCINE (1 of 2) 1994 Respiratory Syncytial Virus (RSV) Vaccine Pt: or over 60 yrs (1 - 1-dose 75+ series) 05/23/2019 DEPRESSION SCREENING 03/09/2024 COVID-19 VACCINE (5 - 2024- season) 2024 08/29/2021, 02/23/2021, 06/01/2020, Additional history exists INFLUENZA VACCINE (#1) 2024 9, 12/03/2017, 12/25/2016, Additional history exists HEPATITIS [...] patient's age to complete [place] [address] [facility] MEDICARE Member Subscriber Plan / Payer (Ef fective 2011-Present) Name:Radha Huynh Relation to Subscriber:Self Name:Radha Huynh Payer ID:[id number] (NAIC) Type:Medicare-[facility] Care Address: [address] [address] Advance Directives * Full Code (Latest Code Status on File) Date Activated Date Inactivated Comments 08/09/2020 4:06 AM 08/11/2020 4:47 PM Care Teams Credit Risk Management Director Relationship Specialty Start Date End Date Juan Pablo Dominguez MD PCP - General Family Medicine 08/09/20
--- OUTSIDE RECORDS SUMMARY | 2024-12-13 13:15 | XMS_ITS | Encounter Summary ---
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 Gender Identity Not on file Sexual Orientation Not on file documented as of this encounter Plan of Treatment Not on file documented as of this encounter Procedures Procedure Name Priority Date/Time Associated Diagnosis Comments SCAN - RADIOLOGY/IMAGING 03/09/2024 CARDIOLOGY DOCUMENT SCAN 03/09/2024 documented in this encounter Results * Cardiology Document Scan (03/09/2024) Anatomical Region Laterality Modality Other us Provider Scanning [facility] CARDIAC SERVICES PROCEDURES Final Result * SCAN - RADIOLOGY/IMAGING (03/09/2024) Anatomical Region Laterality Modality Other us Provider Scanning Edited Result - Final documented in this encounter Visit Diagnoses Not on filedocumented in this encounter Care Teams Lining Machine Tender Relationship Specialty Start Date End Date Sanjeev Webster DO [address] [place] [address] PCP - General Family Medicine 03/11/21 documented as of this encounter
--- OUTSIDE RECORDS SUMMARY | 2024-12-13 13:15 | XMS_ITS | Encounter Summary ---
Author Organization [facility] Healthcare Address [address] [place] [address] Care Team Providers Care Welding Machine Operator/Tender Name Role Phone Hong Holder MD Primary Care Provider [phone] Juan Pablo Dominguez MD Primary Care Provider Miscellaneous, Not In File Primary Care Provider Unavailable Sanjeev Webster DO Primary Care Provide r Encounter Details Date Type Department Care Team (Late st Contact Info) Description 06/30/2017 Orders Only [facility] Health Information Management [address] [place] [id number] Scanning, Provider Social History Tobacco Use Types Packs/Day Years Used Date Smoking Tobacco: Never Smokeless Tobacco: Never Alcohol Use Standard Drinks/Week Comments No 0 (1 standard drink = 0.6 oz pur e alcohol) Comments Unknown Sex and Gender Information Value Date Recorded Sex Assigned at Not on file 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 Gender Identity Not on file Sexual Orientation Not on file documented as of this encounter Plan of Treatment Not on file documented as of this encounter Procedures Procedure Name Priority Date/Time Associated Diagnosis Comments CARDIOLOGY DOCUMENT SCAN 06/30/2017 SCAN - RADIOLOGY/IMAGING 06/29/2017 SCAN - LABS 06/29/2017 documented in this encounter Results * Cardiology Document Scan (06/30/2017) Anatomical Region Laterality Modality Other us Provider Scanning CV CARDIAC SERVICES PROCEDURES Final Result * SCAN - LABS (06/29/2017) us Provider Scanning Final Result * SCAN - RADIOLOGY/IMAGING (06/29/2017) Anatomical Region Laterality Modality Other us Provider Scanning Edited Result - Final documented in this encounter Visit Diagnoses Not on filedocumented in this encounter Care Teams Welding Machine Operator/Tender Relationship Specialty Start Date End Date Hong Holder MD [address] [place] [address] PCP - General 06/06/16 01/11/20 Juan Pablo Dominguez MD [address] [place] [address] PCP - General Family Medicine 01/12/20 08/06/20 Miscellaneous, Not In File PCP - General 08/07/20 2 Sanjeev Webster DO [address] [place] [address] PCP - General Family Medicine 03/11/21 documented as of this encounter
--- OUTSIDE RECORDS SUMMARY | 2024-12-13 13:15 | XMS_ITS | Clinical Summary ---
Author Organization [facility] Address [address] [place] [address] Phone Care Team Providers Care Woodworker Helper Name Role Phone Sanjeev Webster DO Primary Care Provider + Blade Phillips MD Unavailable [phone] Allergies Active Allergy Reactions Criticality Noted Date [...] P M CDT Height 160 cm (5' 3) 11/20/2023 1:27 PM CDT Body Mass Index 32.52 11/20/2023 1:27 PM CDT Plan of Treatment Health Maintenance Due Date Last Done Comments Hepatitis C Virus (HCV) Screening 1945 Medicare Initial AWV [id number] 01/08/2012 Respiratory Syncytial Virus (RSV) Immunization (Adult) (1 - 1-dose 75+ series) 05/23/2019 Zoster Immunization (3 of 3) 01/06/2023 11/11/2022, 12/25/2015 Influenza Immunization (#1) 2024 11/0 08/2022, 12/23/2021, 12/13/2020, Additional history exists SARS-COV-2 Immunization (2024- season) 2024 08/29/2021, 02/23/2021, 06/01/2020, Additional history exists DEXA Bone Density 02/24/2025 02/24/2023, 07/15/2021 Pneumococcal Immunization (50+ years) Completed 03/30/2017, 06/15/2015 TdaP Immunization Completed 09/05/2020, 06/05/2016 Hepatitis B Immunization Aged Out No longer eligible based on patient's age to complete this topic Human Papillomavirus (HPV) Immunization Aged Out No longer eligible based on patient's age to complete this topic Meningococcal Immunization (ACWY) Aged Out No longer eligible based on patient's age to complete this topic Rotavirus Immunization Aged Out No lo nger eligible based on patient's age to complete this topic Insurance MEDICARE C [facility] Care Teams Woodworker Helper Relationship Specialty Start Date End Date Sanjeev Webster DO [address] [place] [address] PCP - General Family Medicine 09/14/23 Blade Phillips MD [address] [place] [phone] Oncology 09/14/23
--- OUTSIDE RECORDS SUMMARY | 2024-12-13 13:15 | XMS_ITS | Clinical Summary ---
Author Organization [facility] [address] Address [address] [place] [address] Care Team Providers Care Operation Shift Supervisor Name Role Phone Sanjeev Wbester DO Primary Care Provide r Allergies Active Allergy Reactions Criticality Noted Date Comments Atorvastatin Muscle pain,Other (See comments) High 08/12/2021 Leg pain/cramps. Resolved after stopping. Bacitracin Benzalkonium Cortisone Rash,Unknown High 08/02/2023 Gramicidin D Hydrocortisone Neomycin Iuiirlhr-Nwmuxvypxm-Pleas yxin Other (See comments) Low 07/31/2020 It [...] 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 toxicity with terminal block assembler u se 05/06/2019 Coronary artery disease invo lving [place] coronary artery of [place] heart without angina pectoris 05/06/2019 Abnormal stress test 05/06/2019 Bradycardia 05/06/2019 LBBB (left bundle branch block) 12/08/2018 Myopathy 02/17/2018 Paroxysmal atrial flutter ([facility]) 08/12/2017 Assessment & Plan (08/14/2020 [...] a associated with type 2 diabetes mellitus ([facility]/HCC) 07/16/2015 Overview (06/13/2016): DM type 2 with [...] therapy 08/15/2014 09/12/2021 Overview (06/13/2016): Chronic anticoagulation Surgical History Surgery Date Site/Laterality Comments OTHER SURGICAL HISTORY Valve Replacement [facility] AVR Medical History Medical History Date [...] Legal Sex Female 6:10 AM DIRECTOR OF DISTANCE LEARNING Gender Identity Not on file Sexual Orientation Not on file Obstetrics History Last Filed Vital Signs Vital Sign Reading Time Taken Comments Blood Pressure 90/64 02/29/2024 10:36 AM DIRECTOR OF DISTANCE LEARNING Pulse 68 02/29/2024 10:36 AM DIRECTOR OF DISTANCE LEARNING Temperature 36.6 C (97.8 F) 08/17/2020 12:52 AM CDT Respiratory Rate 20 08/17/2020 12:52 AM CDT Oxygen Saturation 98% 02/29/2024 10:36 AM DIRECTOR OF DISTANCE LEARNING Inhaled Oxygen Concentration - - Weight 79.8 kg (176 lb) 02/29/2024 10:36 AM DIRECTOR OF DISTANCE LEARNING Height 165.1 cm (5' 5) 02/29/2024 10:36 AM DIRECTOR OF DISTANCE LEARNING Body Mass Index 29.29 02/29/2024 10:36 AM DIRECTOR OF DISTANCE LEARNING Plan of Treatment Health Maintenance Due Date [...] Screening-Bone Density Scan 07/16/2023 07/15/2021 Covid-19 Vaccine ( - 2024-2 6 season) 2024 02/23/2021, 06/01/2020, 05/10/2020 Influenza Vaccine (#1) 2024 , 12/13/2018, 12/03/2017, Additional history exists Lipid Panel 08/05/2025 08/05/2024, 09/2023, 09/18/2022, Additional history exists DTaP/Tdap/Td Vaccine (4 - Td or Tdap) 07/28/2034 07/28/2024, 09/05/2020, 06/05/2016, Additional history exists Pneumococcal vaccine 65+ Completed 03/30/2017, 10/2015 Procedures Procedure Name Priority Date/Time Associated Diagnosis [...] ORDERABLES Final Resul t Performing Organization Address [facility] de Phone Number ER[address] [place] [address] * (ABNORMAL) Hemoglobin A1c (08/14/2020 9:38 AM CDT) Hgb A1C 6.0(H) 4.0 - 5.6 % KERRIE Estimated Average Glucose 126 mg/dL KERRIE Comment: The ADA recommends reporting an estimated Average Glucose (eAG) with all Hemoglobin A1c results using the equation derived from a study of 507 normal and diabetic adults. Minority populations were underrepresented and children were not included. (Diabetes Care 31:2147-1187, 2008). The eAG is not equivalent to a fasting glucose. Blood specimen (specimen) 08/14/2020 9:38 AM CDT 08/14/2020 9:54 AM CDT Amparo Vergara MD LAB BLOOD ORDERABLES Final Resul t Performing Organization Address [facility] de Phone Number ERIC[address] [place] [address] from Last 3 Months or Most Recently Relevant to Health Maintenance Insurance [facility] Member Subscriber Plan / Payer (Ef fective 2017-Present) Name:ANA MARIA BOBO Relation to Subscriber:Self Name:Ana Maria Bobo Payer ID:[id number] (NA) Type:MEDICARE RISK OTHER Address: [address] [place] [id number] [facility] Advance Directives For more information, please contact: [phone] Documents on File Type Date Recorded Patient Production Manufacturing Worker Expl anation ADVANCE DIRECTIVE 09/04/2020 1:26 PM OUTSI [facility] DNR ADVANCE DIRECTIVE 09/03/2020 12:52 PM ADVANCE DIRECTIVE 08/16/2020 11:40 AM OUTS [facility] DNR * Full Code (Latest Code Status on File) Date Activated Date Inactivated Comments 08/11/2020 6:08 PM 08/17/2020 5:34 PM Care Teams Operation Shift Supervisor Relationship Specialty Start Date End Date Sanjeev Webster DO [address] [place] [address] PCP - General Family Medicine 03/11/21
--- OUTSIDE RECORDS SUMMARY | 2024-12-13 13:15 | XMS_ITS | Encounter Summary ---
Author Organization [facility] Address [address] [facility] [address] [facility] [address] [place] [address] Care Team Providers Care Post Production Assistant Name Role Phone Hong Holder MD Primary Care Provider [phone] Hong Holder MD Primary Care Provider [phone] Juan Pablo Dominguez MD Primary Care Provider Miscellaneous, Not In File Primary Care Provider Unavailable Sanjeev Webster DO Primary Care Provide r Encounter Details Date Type Department Care Team (Late st Contact Info) Description 05/28/2016 Orders Only [facility] ProviderCasi MD [address] [place] [address] Social History Tobacco Use Types Packs/Day Years Used Date Smoking Tobacco: Never Alcohol Use Standard Drinks/Week Comments No 0 (1 standard drink = 0.6 oz pur e alcohol) Comments Unknown Sex and Gender Information Value Date Recorded Sex Assigned at Not on file 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 Gender Identity Not on file Sexual Orientation [...] on filedocumented in this encounter Care Teams Post Production Assistant Relationship Specialty Start Date End Date Hong Holder MD [address] [address] PCP - General 06/06/16 01/11/20 Hong Holder MD [address] [address] PCP - General 01/15/15 06/05/16 Juan Pablo Dominguez MD [address] [address] PCP - General Family Medicine 01/12/20 08/06/20 Miscellaneous, Not In File PCP - General 08/07/20 2 Sanjeev Webster DO [address] [place] [address] PCP - General Family Medicine 03/11/21 documented as of this encounter
== END 2024-12-13 12:22 | disposition home or self-care (01) ==
PROVIDERS: PCP Student in an Organized Health Care Education/Training Program; Visit Provider Internal Medicine Cardiovascular Disease
DX: Z95.2 Presence of prosthetic heart valve (principal); I08.3 Combined rheumatic disorders of mitral, aortic and tricuspid valves
CPT/HCPCS: 93306

== ENCOUNTER 2024-12-21 13:02 | Outpatient (CLI) | payer OTHER, SELFPAY ==
--- NOTE | ~2024-12-21 | MR_ITS ---
EXAMINATION: MRA brain wo con DATE: 12/21/2024 14:44 INDICATION: Cerebral aneurysm. TECHNIQUE: Magnetic resonance angiography (MRA) of the brain was performed without intravenous contrast with T1-weighted SPGR by the 3D [id number] technique. Maximum intensity projection 3D-reconstructions were obtained. COMPARISON: Brain MRI 04/06/2019, CTA 08/07/2020 FINDINGS: Fracture artifact is noted. The vertebral arteries are codominant. There is no significant stenosis of basilar artery or the posterior cerebral arteries. Left posterior communicating artery is normal. A right posterior communicating artery is not identified. There is no significant stenosis of the intracranial internal carotid arteries or anterior or middle cerebral arteries. 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 IMPRESSION: 1. 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 Reviewed, dictated and finalized at location E. IMPRESSION: 1. 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
== END 2024-12-21 13:03 | disposition home or self-care (01) ==
PROVIDERS: PCP Student in an Organized Health Care Education/Training Program; Visit Provider Student in an Organized Health Care Education/Training Program
DX: I67.1 Cerebral aneurysm, nonruptured (principal)
CPT/HCPCS: 70544

== ENCOUNTER 2024-12-29 13:42 | Outpatient (CLI) | payer OTHER, SELFPAY ==
[2024-12-29 14:28] LABS: INR 1.8; Prothrombin Time 21.0 Seconds (11.1-14.7)
[2024-12-29 14:29] LABS: Iron 69 ug/dL (37-170)
[2024-12-29 14:30] LABS: Alanine Aminotransferase 19 U/L (6-35); Albumin Level 3.9 g/dL (3.5-5.1); Alkaline Phosphatase 69 U/L (38-126); Aspartate Amino Transferase 32 U/L (14-36); Bilirubin,Total 0.4 mg/dL (0.2-1.3); Total Protein 7.1 g/dL (6.3-8.2)
[2024-12-29 14:40] LABS: Percent Iron Saturation 29 % (20-50)
--- OUTSIDE RECORDS SUMMARY | 2024-12-29 14:40 | XMS_ITS | Clinical Summary ---
Author Organization [facility] Address [address] [facility] [place] [address] Care Team Providers Care Sewing Supervisor Name Role Phone Juan Pablo Dominguez MD Primary Care Provider Unavailabl e Source Comments [facility],non-owned Affiliates and Associated Physician Practices is amultiple site organization consisting of ambulatory clinics and hospital sitesin [place], [place], [place] and [place]. This disclosure is being madepursuant to the Care Everywhere program and may not contain all information available regarding this patient. Last updated 17.Relive Allergies No known active allergies Medications * [...] on file Legal Sex Female 6:27 AM SVP [employer] Gender Identity Not on file Sexual Orientation [...] patient's age to complete [place] [address] [facility] MEDICARE [facility] Address: [address] [address] Advance Directives * Full Code (Latest Code Status on File) Date Activated Date Inactivated Comments 08/09/2020 4:06 AM 08/11/2020 4:47 PM Care Teams Sewing Supervisor Relationship Specialty Start Date End Date Juan Pablo Dominguez MD PCP - General Family Medicine 08/09/20
--- OUTSIDE RECORDS SUMMARY | 2024-12-29 14:40 | XMS_ITS | Encounter Summary ---
Author Organization [facility] Healthcare Address [address] [place] [address] Care Team Providers Care Lean Six Sigma Senior Specialist Name Role Phone Sajneev Webster Primary Care Provide r Encounter Details Date Type Department Care Team (Late st Contact Info) Description 03/09/2024 Orders Only [facility] [place] Information Management [address] [place] [id number] Scanning, Provider Social History Tobacco Use Types [...] on file Legal Sex Female 6:10 AM KILN STOKER Gender Identity Not on file Sexual Orientation [...] on filedocumented in this encounter Care Teams Lean Six Sigma Senior Specialist Relationship Specialty Start Date End Date Sanjeev Webster DO [address] [place] [id number] PCP - General Family Medicine 03/11/21 documented as of this encounter
--- OUTSIDE RECORDS SUMMARY | 2024-12-29 14:40 | XMS_ITS | Encounter Summary ---
Author Organization [facility] Healthcare Address [address] [place] [address] Care Team Providers Care District Manager In Training Name Role Phone Hong Holder MD Primary Care Provider [phone] Juan Pablo Dominguez MD Primary Care Provider Miscellaneous, Not In File Primary Care Provider Unavailable Sanjeev Webster DO Primary Care Provide r Encounter Details Date Type Department Care Team (Late st Contact Info) Description 06/30/2017 Orders Only [facility] [place] Health Information Management [address] [place] [address] Scanning, Provider Social History Tobacco Use Types Packs/Day Years Used Date Smoking Tobacco: Never Smokeless Tobacco: Never Alcohol Use Standard Drinks/Week Comments No 0 (1 standard drink = 0.6 oz pur e alcohol) Comments Unknown Sex and Gender Information Value Date Recorded Sex Assigned at Not on file 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
--- OUTSIDE RECORDS SUMMARY | 2024-12-29 14:40 | XMS_ITS | Clinical Summary ---
Author Organization [facility] [address] Address [address] [place] [address] Care Team Providers Care Sewing Machine Adjuster Name Role Phone Sanjeev Webster DO Primary Care Provide r Allergies Active Allergy Reactions Criticality Noted Date Comments Atorvastatin Muscle pain,Other (See comments) High 08/12/2021 Leg pain/cramps. Resolved after stopping. Bacitracin Benzalkonium Cortisone Rash,Unknown High 08/02/2023 Gramicidin D Hydrocortisone Neomycin Srxqpfyv-Pqwxgzqion-Euiwe yxin Other (See comments) Low 07/31/2020 It [...] monitor 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 toxicity with skilled nursing u se 05/06/2019 Coronary artery disease invo lving [place] coronary artery of [place] heart without angina pectoris 05/06/2019 Abnormal stress test 05/06/2019 Bradycardia 05/06/2019 LBBB (left bundle branch block) 12/08/2018 Myopathy 02/17/2018 Paroxysmal atrial flutter ([facility]) 08/12/2017 Assessment & Plan [...] 2 diabetes mellitus ([facility]) 07/16/2015 Overview (06/13/2016): DM type 2 with [...] OTHER SURGICAL HISTORY Valve Replacement [facility] Medical History Medical History Date Comments [...] on file Legal Sex Female 6:[address] Gender Identity Not on file Sexual Orientation Not on file Obstetrics History Last Filed Vital Signs Vital Sign Reading Time Taken Comments Blood Pressure 90/64 02/29/2024 10:[address] Pulse 68 02/29/2024 10:[address] Temperature 36.6 C (97.8 F) 08/17/2020 12:52 AM CDT Respiratory Rate 20 08/17/2020 12:52 AM CDT Oxygen Saturation 98% 02/29/2024 10:[address] Inhaled Oxygen Concentration - - Weight 79.8 kg (176 lb) 02/29/2024 10:[address] Height 165.1 cm (5' 5) 02/29/2024 10:[address] Body Mass Index 29.29 02/29/2024 10:[address] Plan of Treatment Health Maintenance Due Date [...] ORDERABLES Final Resul t Performing Organization Address [facility] de Phone Number [address] [place] [address] * (ABNORMAL) Hemoglobin A1c (08/14/2020 9:38 AM CDT) Hgb A1C 6.0(H) 4.0 - 5.6 % KERRIE Estimated Average Glucose 126 mg/dL KERRIE Comment: The ADA recommends reporting an estimated Average Glucose (eAG) with all Hemoglobin A1c results using the equation derived from a study of 507 normal and diabetic adults. Minority populations were underrepresented and children were not included. (Diabetes Care 31:1500-4054, 2008). The eAG is not equivalent to a fasting glucose. Blood specimen (specimen) 08/14/2020 9:38 AM CDT 08/14/2020 9:54 AM CDT Amparo Vergara MD LAB BLOOD ORDERABLES Final Resul t Performing Organization Address [facility] de Phone Number [address] [place] [address] from Last 3 Months or Most Recently Relevant to Health Maintenance Insurance [employer] Member Subscriber Plan / Payer (Ef fective 2017-Present) Name:ANA MARIA BOBO Relation to Subscriber:Self Name:Ana Maria Bobo Payer ID:[id number] (NA) Type:MEDICARE RISK OTHER Address: [address] [place] [id number] [facility] Advance Directives For more information, please contact: [phone] Documents on File Type Date Recorded Patient Credentialing Coordinator Expl anation ADVANCE DIRECTIVE 09/04/2020 1:26 PM OUTSI [facility] DNR ADVANCE DIRECTIVE 09/03/2020 12:52 PM ADVANCE DIRECTIVE 08/16/2020 11:40 AM OUTS [facility] DNR * Full Code (Latest Code Status on File) Date Activated Date Inactivated Comments 08/11/2020 6:08 PM 08/17/2020 5:34 PM Care Teams Sewing Machine Adjuster Relationship Specialty Start Date End Date Sanjeev Webster DO [address] [place] [address] PCP - General Family Medicine 03/11/21
--- OUTSIDE RECORDS SUMMARY | 2024-12-29 14:40 | XMS_ITS | Clinical Summary ---
Author Organization [facility] Address [address] [place] [address] Phone Care Team Providers Care Geographic Information Systems Director Name Role Phone Sanjeev Webster DO Primary Care Provider + Blade Phillips MD Unavailable [phone] Allergies Active Allergy Reactions Criticality Noted Date [...] topic Insurance MEDICARE C [employer] Care Teams Geographic Information Systems Director Relationship Specialty Start Date End Date Sanjeev Webster DO [address] [place] [address] PCP - General Family Medicine 09/14/23 Blade Phillips MD [address] [place] [phone] Oncology 09/14/23
--- OUTSIDE RECORDS SUMMARY | 2024-12-29 14:40 | XMS_ITS | Encounter Summary ---
Author Organization [facility] Address [address] [place] [address] Care Team Providers Care Inpatient Auditor Name Role Phone Hong Holder MD Primary Care Provider [phone] Hong Holder MD Primary Care Provider [phone] Juan Pablo Dominguez MD Primary Care Provider Miscellaneous, Not In File Primary Care Provider Unavailable Sanjeev Webster DO Primary Care Provide r Encounter Details Date Type Department Care Team (Late st Contact Info) Description 05/28/2016 Orders Only [facility] ProviderCasi MD [address] [place] [address] Social History Tobacco Use Types Packs/Day Years Used Date Smoking Tobacco: Never Alcohol Use Standard Drinks/Week Comments No 0 (1 standard drink = 0.6 oz pur e alcohol) Comments Unknown Sex and Gender Information Value Date Recorded Sex Assigned at Not on file 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 Gender Identity Not on file Sexual Orientation [...] on filedocumented in this encounter Care Teams Inpatient Auditor Relationship Specialty Start Date End Date Hong Holder MD [address] [address] PCP - General 06/06/16 01/11/20 Hong Holder MD [address] [address] PCP - General 01/15/15 06/05/16 Juan Pablo Dominguez MD [address] [address] PCP - General Family Medicine 01/12/20 08/06/20 Miscellaneous, Not In File PCP - General 08/07/20 2 Sanjeev Webster DO [address] [place] [address] PCP - General Family Medicine 03/11/21 documented as of this encounter
[2024-12-29 15:10] LABS: Ferritin 119.00 ng/mL (11.1-264)
[2024-12-29 17:21] LABS: Hepatitis B Surface Antigen Negative (Negative)
[2024-12-29 17:26] LABS: HAV RESULT Negative (Negative); Hepatitis B Core IgM Result Negative (Negative)
[2024-12-30 07:09] LABS: GGT 15 IU/L (0-60)
[2024-12-30 18:08] LABS: ANA by IFA Rfx Titer/Pattern Negative (.)
== END 2024-12-29 13:43 | disposition home or self-care (01) ==
LOC: ANHLAB 13:43
PROVIDERS: PCP Student in an Organized Health Care Education/Training Program; Visit Provider Nurse Practitioner Family
DX: K74.60 Unspecified cirrhosis of liver (principal); R10.12 Left upper quadrant pain
CPT/HCPCS: 36415; 80074; 80076; 82103; 82390; 82728; 82977; 83540; 83550; 85610; 86015; 86038; 86381

== ENCOUNTER 2025-01-20 08:55 | Outpatient (CLI) | payer OTHER, SELFPAY ==
--- NOTE | ~2025-01-20 | US_ITS ---
EXAMINATION: US abdomen limited DATE: 01/20/2025 10:20 INDICATION: Cirrhosis of the liver TECHNIQUE: Multiple grayscale and Doppler ultrasound images of the abdomen were obtained. COMPARISON: 12/13/2021 FINDINGS: The liver appears somewhat coarse in echotexture with no large masses or lesions. No ductal dilatation seen. Length of the liver measures 13.3 cm Pancreas is poorly seen. No free fluid seen. No cholelithiasis or gross gallbladder wall thickening. Common bile duct: 6.8 mm. IMPRESSION: 1. Cirrhotic appearing changes of the liver. 2. Incomplete evaluation of the pancreas. Reviewed, dictated and finalized at location A. [facility]
== END 2025-01-20 08:56 | disposition home or self-care (01) ==
PROVIDERS: PCP Student in an Organized Health Care Education/Training Program; Visit Provider Nurse Practitioner Family
DX: K74.60 Unspecified cirrhosis of liver (principal)
CPT/HCPCS: 76705